=== PATIENT | male | born 1960 | race Caucasian/White ===

== ENCOUNTER 2024-04-26 08:33 | Outpatient (OUT) | payer MEDICARE, SELFPAY ==
--- NOTE | 2024-04-26 07:33 | V.VEINS.HP ---
Vital Signs 04/26/24 09:08 Height 6 ft Weight 133.81 kg BMI 40.0 BP 102/64 BP Location Left Brachial BP Position Sitting BP Cuff Size Adult BP Source Manual Cuff Respiration 20 Pulse 72 Pulse Source Monitor Pulse Oximetry (%) 90 L Oxygen Delivery Method Room Air Varicose Veins Patient is a 64 year old male in this day as a referral from his wound doctor, Dr. Harrington secondary to a wound to left foot which has been there for approximately one year. Patient c/o bilateral leg edema, discoloration, pain, and achiness. Patient's symptoms include bulging veins, discolored edematous legs. Patient has worn bilateral leg knee high compression stockings for >5 years. Patient has a history of partial left foot amputation. Patient's symptoms are worse in left leg as compared to right leg. Patient denies family history of varicose veins. Betito Ocasio MD personally performed the services described in this documentation, as scribed by Herson Reaves RN in my presence and it is both accurate and complete. Herson Ocasio RN, am scribing for, and in the presence of, Dr. Betito Cope and in the presence of the patient. . thigh: bilateral (left leg>right leg), knee: bilateral, calf: bilateral, ankle: bilateral and harrington: bilateral aching, burning, cramping and tender 10 12 years Worsened in recent months: Yes sitting analgesics (Ibuprofen and Tylenol), elevating extremities, compression stockings and exercise Reports muscle spasms of leg, erythema, bruising, fatigue, heaviness, restless legs, limb pain, edema and leg edema History of lower extremity trauma: Yes (left foot partial amputation 2011 secondary to diabetes) Superficial thrombophlebitis: No Family history of varicose veins: no Has patient had previous lower extremity venous surgery: No Patient has previously received the following treatment(s) for lower extremity varicose veins: Reports none Does patient have a history of : not applicable Has patient had lower extremity venous scan with relux testing: No Support hose used: Yes Problems walking or doing physical activity: Yes (weakness) How does it affect you: unable to ambulate well due to weakness Do you walk much: No Do you stand much: No Review of Systems ROS Narrative Left foot ulcer underside of lateral left foot [id number] in depth . IBetito MD personally performed the services described in this documentation, as scribed by Herson Reaves RN in my presence and it is both accurate and complete. I, Herson Reaves RN, am scribing for, and in the presence of, Dr. Betito Cope and in the presence of the patient. Status of ROS 10 or more systems reviewed and unremarkable except as noted in history and below Cardiovascular Reports: edema Integumentary/Breast Reports: itching, redness, skin pain, skin tenderness, skin swelling, non-healing lesion and changes in skin color Neurological Reports: numbness in extremities and weakness in extremities Hematologic/Lymphatic Reports: easy bruising and easy bleeding [facility] Medical History (Updated 04/26/24 @ 09:03 by Herson Reaves) Umbilical hernia ?K42.9 - Umbilical hernia without obstruction or gangrene (ICD-10) Urine retention ?R33.9 - Retention of urine, unspecified (ICD-10) Hypertension ?I10 - Essential (primary) hypertension (ICD-10) Obesity ?E66.9 - Obesity, unspecified (ICD-10) Bilateral leg edema ?R60.0 - Localized edema (ICD-10) Pain due to varicose veins of both lower extremities ?I83.813 - Varicose veins of bilateral lower extremities with pain (ICD-10) Diabetes 1.5, managed as type 2 ?E13.9 - Other specified diabetes mellitus without complications (ICD-10) Partial nontraumatic amputation of left foot ?Z89.432 - Acquired absence of left foot (ICD-10) Family History (Updated 04/26/24 @ 09:04 by Herson Reaves) Other Emphysema lung Social History (Updated 04/26/24 @ 09:04 by Herson Reaves) Within the past year, how often did you have a drink containing alcohol: never Score interpretation: A score less than 4 is consistent with normal alcohol consumption. Smoking status: Never smoker Non-prescribed substance use: denies use Meds Home Medications and Allergies Home Medications ?Medication ?Instructions ?Recorded ?Confirmed ?Type insulin aspart (niacinamide) subcut diabetes 04/26/24 History linagliptin 2.5 mg-metformin ER 1 tab PO DAILY 04/26/24 04/26/24 History 1,000 mg tablet,extended release 24 hr (Jentadueto XR) lisinopril 20 mg tablet 10 mg PO DAILY 04/26/24 04/26/24 History Allergies Allergy/AdvReac Type Severity Reaction Status Date / Time penicillamine Allergy Intermediate Rash Verified 04/26/24 09:07 Exam Narrative Exam Narrative: Betito Ocasio MD personally performed the services described in this documentation, as scribed by Herson Reaves RN in my presence and it is both accurate and complete. Herson Ocasio RN, am scribing for, and in the presence of, Dr. Betito Cope and in the presence of the patient. Constitutional Documenting provider has reviewed patient's vital signs: yes Common normals: oriented x3 Nutritional appearance: overweight Lymph Lymphatic: no lymphedema noted Cardio Peripheral pulses: posterior tibial pulses present and dorsalis pedis pulses present Extremity General: calf tenderness and edema Right lower extremity: lower leg Right lower leg: inspection and palpation Left lower extremity: lower leg Left lower leg: inspection and palpation Neuro Common normals: oriented x3 Results Additional Findings Additional findings: Bilateral leg reflux u/s reveals abnormally dilated and insufficient bilateral great and small saphenous veins along with perforating vein to left lower leg near ulcer. Additionaly, bilateral leg branch saphenous truncal tribuary varicosities. Assessment and Plan Assessment and Plan (1) Bilateral leg edema: Plan Patient to return for EVLTs of left GSV, followed by right GSV followed by left SSV followed by right SSV, and lastly EVLT of left perforating vein. Once EVLTs complete, move forward with microfoam chemical ablation bilateral leg branch saphenous varicosities. Betito Ocasio MD personally performed the services described in this documentation, as scribed by Herson Reaves RN in my presence and it is both accurate and complete. Herson Ocasio RN, am scribing for, and in the presence of, Dr. Betito Cope and in the presence of the patient.
--- NOTE | 2024-04-26 07:36 | W.VEIN ---
Discharge Plan Discharge Disposition: Home, Self-Care Outpatient Diagnostics: VC Endovenous Ablation 1VeinLT (Routine) Timeframe: 2 Weeks Facility: [facility] - Location: [facility] Ordered By: Betito Cope Plan of Treatment: EVLT of left GSV Patient Instructions: Endovenous Ablation (GEN) Print Language: Portuguese Discharge Date/Time: 04/26/24 11:43
--- NOTE | 2024-04-26 08:38 | VEIN_ITS ---
Patient Name: MONTRELL LORA MR#: [id number] : 1960 Exam Date: 04/26/2024 Ordering Doctor: DR RADHA WYATT M.D. This report includes an Addendum and supersedes previous reports for this exam. RADIOLOGY REPORT PROCEDURE: FACILITY [facility] - OFFICE VISIT INITIAL COMPARISON: None. PROGRESS NOTES: [age] year old male who presents with a 12 year history of lower extremity aching, burning, cramping, tenderness, swelling, bulging veins, and nonhealing ulceration. The patient's left leg symptoms are worse than the right. There has been a progression of symptoms over time. This increases with prolonged leg dependency. The patient describes an improvement with rest, elevation, compression stockings, and analgesics. The patient denies any signs and symptoms to suggest arterial ischemia. The patient describes a family history emphysema. The patient has drinking and smoking history of : None. Patient has a past medical history significant for diabetes, non traumatic amputation of portion of the left foot, hypertension, obesity. The patient denies a history of deep venous thrombus or pulmonary embolus. See separate history and physical for medication list. No prior treatment for varicose or spider veins. Current long-term use of compression stockings. After review of nurse notes, history and physical exam I discussed at length the pathophysiology of venous hypertension and possible treatments, therapies and strategies available. We discussed at length the importance of elevating the lower extremities above the level of the heart, increased physical activity and compression stocking use. Ultrasound venous reflux study performed today was discussed at length with the patient. The report demonstrates abnormally dilated incompetent great saphenous and small saphenous veins bilaterally with associated branch saphenous varicosities. Bilateral lower extremity dilated incompetent technical sales associate veins.. PHYSICAL EXAM: The right leg demonstrates a few scattered varicosities, a few scattered spider veins, no ulceration, moderate edema, marked skin discoloration. The left leg demonstrates a few scattered varicosities, a few scattered spider veins, active ulceration, moderate edema, marked skin discoloration. Both thighs, legs and feet were symmetrically warm to the touch. Good posterior tibial and dorsalis pedis pulses were present bilaterally. VEIN/VC Facility NEW Comprehensive IMPRESSION: 1. Bilateral lower extremity venous insufficiency 2. Bilateral lower extremity varicose veins 3. Bilateral lower extremity subcutaneous edema 4. No flow significant arterial disease 5. CEAP: C6, AP, AP, MT PLAN: 1. Continued use of compression stockings 2. Elevated legs and increased physical activity symptomatic relief 3. Endovenous laser ablation of left great saphenous, right great saphenous, left small saphenous, right small saphenous, and lower left leg technical sales associate veins. 4. Microfoam chemical ablation of bilateral lower extremity incompetent branch saphenous varicosities. Nurse notes, history and physical were reviewed and confirmed, see attached forms. The nurse was present throughout the physical exam and consultation Dictated by: Betito Cope M.D. on 04/26/2024 at 10:20 Approved by: Betito Cope M.D. on 04/26/2024 at 11:08 ADDENDUM: Endovenous laser ablation of lower left leg technical sales associate veins was inadvertently left off of the PLAN on the original report, but has now been added. Dictated by: Betito Cope M.D. on 04/26/2024 at 11:51 Approved by: Betito Cope M.D. on 04/26/2024 at 11:52
--- NOTE | 2024-04-26 08:39 | VEIN_ITS ---
Patient Name: MONTRELL LORA MR#: [id number] : 1960 Exam Date: 04/26/2024 Ordering Doctor: DR RADHA WYATT M.D. RADIOLOGY REPORT PROCEDURE: VC EXT VENOUS REFLUX EDWARD LMTD COMPARISON: None. INDICATIONS: I83.813 Bilateral painful varicose veins TECHNIQUE: Duplex imaging of the lower extremity to assess the deep and superficial venous system for the presence of deep or superficial venous incompetence and to document the location and severity of disease. The study includes evaluation of the great saphenous vein (GSV), anterior accessory saphenous vein (AASV) and small saphenous vein (SSV). Patient scanned in reverse Trendelenburg and standing. FINDINGS: RIGHT LOWER EXTREMITY: Saphenofemoral Junction Reflux: Yes 10.3mm 2.6 sec GSV: Diam (mm) Reflux/ Time (sec) Proximal Thigh 11.0 Yes 1.5 Mid Thigh 7.6 Yes 1.9 Distal Thigh 5.5 Yes 1.5 Prox Calf 6.0 Yes 1.6 Mid Calf 4.2 No Saphenopopliteal Junction Reflux: 6.8mm Yes 1.8 SSV: Proximal Calf 6.0 Yes 1.8 Mid Calf 5.4 Yes 0.8 AASV: Not present Proximal Thigh Mid Thigh Distal Thigh Thrombi: No acute or chronic patient visualized Compressibility: Normal Flow: Normal Preforator: Dist/med calf 5.5mm with 0.7s reflux. Mid/med calf 3.3mm with 0s reflux. Tech Note: Incompetent GSV and SSV. Patent varicose vein mid/med calf 4.3mm with 1.4s reflux. Patent varicose vein mid/med thigh 4.3mm with 1.8s reflux. Patent varicose vein medial knee 3.6mm with 0.8s reflux. LEFT LOWER EXTREMITY: Saphenofemoral Junction Reflux: Yes 10.1 mm 1.8 sec GSV: Diam (mm) Reflux/Time (sec) Proximal Thigh 9.9 Yes 1.8 Mid Thigh 13.2 Yes 1.8 Distal Thigh 9.1 Yes 2.2 Prox Calf 9.9 Yes 2.0 Mid Calf 5.8 Yes 1.3 Saphenopopliteal Junction Relux: 8.0 mm Yes 1.9 SSV: Proximal Calf 7.8 Yes 1.6 Mid Calf 5.7 Yes 1.2 AASV: Not present Proximal Thigh Mid Thigh Distal Thigh Thrombi: No acute or chronic thrombus visualized Compressibility: Normal Flow: Normal Solution Strategist: Dist/med calf 5.8mm with 0.8s reflux. Mid/med calf 5.5mm with 1.8s reflux. Tech Note: Incompetent GSV, SSV, and perforators. GSV is extrafascial from distal thigh to mid calf. Patent varicose vein mid/med calf 6.7mm with 2.3s reflux. Patent varicose vein prox/med calf 13.0mm with 1.3s reflux. Patent varicose vein prox/med calf 11.9mm with 2.0s reflux. CONCLUSION: 1. Incompetent and abnormally dilated great saphenous and small saphenous veins bilaterally with associated incompetent branch saphenous varicosities. 2. Bilateral lower extremity dilated and incompetent promotions associate veins. Dictated by: Betito Cope M.D. on 04/26/2024 at 10:15 Approved by: Betito Cope M.D. on 04/26/2024 at 10:20
[2024-04-26 09:08] VITALS: BP 102/64; PULSE 72; O2SAT 90; BMI 40.0
== END 2024-04-26 11:43 | disposition home or self-care (01) ==
PROVIDERS: PCP Radiology Diagnostic Radiology; Visit Provider Radiology Diagnostic Radiology
DX: I83.813 Varicose veins of bilateral lower extremities with pain (principal)
CPT/HCPCS: 93970; G0463

== ENCOUNTER 2024-05-14 14:16 | Outpatient (OUT) | payer MEDICARE, SELFPAY ==
--- NOTE | 2024-05-14 14:16 | VEIN_ITS ---
[address] [address] Patient Name: MONTRELL LORA MRN: [id number] date: 1960 Sex: M Assigned Patient Location: Current Patient Location: Accession/Order Number: [id number] Exam Date: 05/14/2024 14:25 Report Date: 05/14/2024 16:24 At the request of: AIXA PARHAM Procedure: VC Endovenous Ablation 1VeinLT EXAMINATION: VC Endovenous Ablation 1VeinLT HISTORY: I83.813 - Varicose veins of bilateral lower extremities w... The risks and benefits of the procedure had been previously discussed, and were rediscussed at length. Informed written consent was obtained. Nan Cunha RN and Tatyana Woods RDMS, RVT assisted. Time out procedure was performed. The left lower extremity was prepared and draped in the usual sterile fashion to allow knee flexion in the sterile field. Duplex ultrasound probe was draped in a sterile cover, sterile transmission gel was used. Venous mapping was performed with the areas of dilation and large tributaries marked. The total length was 73 cm from the entry 3 cm above the ankle to 3 cm below the Saphenofemoral junction. The diameter of the left great saphenous vein ranged from 13.2 mm. A 30 gauge needle and 1% buffered lidocaine was used to anesthetize the entry site. A 4 mm incision was made with a scalpel and the saphenous vein was entered percutaneously under direct ultrasound guidance with a micropuncture set, a single stick was successful in gaining access. A micro-guide wire was inserted and the needle removed. A micro-set including a dilator was inserted over the microwire and the needle and dilator were removed. A guide wire was inserted through the micro-set and guided through the saphenous vein to the saphenofemoral junction. The dilator was removed and an introducer sheath was inserted over the wire until the end of the sheath entered the saphenofemoral junction. The dilator and wire were removed and the 600 micron fiber was introduced and placed and positioned so that it extended beyond the sheath and was 3 cm distal to the saphenofemoral or saphenopopliteal junction. Final position of the fiber was determined by ultrasound guidance and duplex imaging. Tumescent anesthetic was delivered by ultrasound guidance. 350 cc of fluid was delivered along the entire course of the saphenous vein. The solution consisted of 1000 cc of normal saline with 40 mL of 1% lidocaine and 20 mL of sodium bicarbonate. A final positioning check was made. The energy source was turned on by means of the foot pedal and the fiber and sheath were withdrawn. The total number of Joules delivered was 4499. The laser was active for 562 seconds under continuous pulse, average laser use of 8 J. Laser start time: 3:15 PM Laser stop time: 3:27 PM Date: 05/14/2024. A duplex ultrasound revealed compressibility and flow at the saphenofemoral junction immediately after the procedure. Hemostasis at the access site was achieved. The skin incision of the saphenous vein was closed with a 4 x 4. A compression stocking was applied. Postop instructions were given. A follow up appointment was recommended and scheduled. The patient tolerated the procedure well. Electronically authenticated by: AIXA PARHAM Date: 05/14/2024 16:24
[2024-05-14] MEDS: 0.9 % SODIUM CHLORIDE 500 ML, LIDOCAINE HCL 20 ML, SODIUM BICARBONATE 10 MEQ INJ (14:23)
[2024-05-14] MEDS: LIDOCAINE HCL 1% 100 MG/10 ML MDV INJ (14:23)
[2024-05-14 14:50] VITALS: BP 138/70; PULSE 72; O2SAT 94
--- NOTE | 2024-05-14 14:58 | VEINCLINIC_ITS ---
Vital Signs 05/14/24 14:50 05/14/24 15:17 Height 5 ft 7 in Weight 117.934 kg BP 138/70 BP Location Left Brachial BP Position Sitting BP Cuff Size Adult BP Source Manual Cuff Respiration 20 Pulse 72 Pulse Source Monitor Pulse Oximetry (%) 94 L Oxygen Delivery Method Room Air Comment The patient's blood pressure is elevated. Varicose Veins Patient in this day for EVLT of left GSV Betito Ocasio MD personally performed the services described in this documentation, as scribed by Herson Reaves RN in my presence and it is both accurate and complete. IHerson RN, am scribing for, and in the presence of, Dr. Betito Cope and in the presence of the patient. . thigh: bilateral (left leg>right leg), knee: bilateral, calf: bilateral, ankle: bilateral and harrington: bilateral aching, burning, cramping and tender 10 12 years Worsened in recent months: Yes sitting analgesics (Ibuprofen and Tylenol), elevating extremities, compression stockings and exercise Reports muscle spasms of leg, erythema, bruising, fatigue, heaviness, restless legs, limb pain, edema and leg edema History of lower extremity trauma: Yes (left foot partial amputation 2011 secondary to diabetes) Superficial thrombophlebitis: No Family history of varicose veins: no Has patient had previous lower extremity venous surgery: No Patient has previously received the following treatment(s) for lower extremity varicose veins: Reports none Does patient have a history of : not applicable Has patient had lower extremity venous scan with relux testing: No Support hose used: Yes Problems walking or doing physical activity: Yes (weakness) How does it affect you: unable to ambulate well due to weakness Do you walk much: No Do you stand much: No Review of Systems ROS Narrative Left foot ulcer underside of lateral left foot [id number] in depth . Betito Ocasio MD personally performed the services described in this documentation, as scribed by Herson Reaves RN in my presence and it is both accurate and complete. Herson Ocasio RN, am scribing for, and in the presence of, Dr. Betito Cope and in the presence of the patient. Status of ROS 10 or more systems reviewed and unremark able except as noted in history and below Cardiovascular Reports: edema Integumentary/Breast Reports: itching, redness, skin pain, skin tenderness, skin swelling, non-healing lesion and changes in skin color Neurological Reports: numbness in extremities and weakness in extremities Hematologic/Lymphatic Reports: easy bruising and easy bleeding PFSH PFSH Medical History (Updated 04/26/24 @ 09:03 by Herson Reaves) Umbilical hernia ?K42.9 - Umbilical hernia without obstruction or gangrene (ICD-10) Urine retention ?R33.9 - Retention of urine, unspecified (ICD-10) Hypertension ?I10 - Essential (primary) hypertension (ICD-10) Obesity ?E66.9 - Obesity, unspecified (ICD-10) Bilateral leg edema ?R60.0 - Localized edema (ICD-10) Pain due to varicose veins of both lower extremities ?I83.813 - Varicose veins of bilateral lower extremities with pain (ICD-10) Diabetes 1.5, managed as type 2 ?E13.9 - Other specified diabetes mellitus without complications (ICD-10) Partial nontraumatic amputation of left foot ?Z89.432 - Acquired absence of left foot (ICD-10) Surgical History (Updated 05/14/24 @ 15:39 by Herson Reaves) Status post laser ablation of incompetent vein ?Z98.890 - Other specified postprocedural states (ICD-10) Family History (Updated 04/26/24 @ 09:04 by Herson Reaves) Other Emphysema lung Social History (Updated 04/26/24 @ 09:04 by Herson Reaves) Within the past year, how often did you have a drink containing alcohol: never Score interpretation: A score less than 4 is consistent with normal alcohol consumption. Smoking status: Never smoker Non-prescribed substance use: denies use Meds Home Medications and Allergies Home Medications ?Medication ?Instructions ?Recorded ?Confirmed ?Type insulin aspart (niacinamide) subcut diabetes 04/26/24 History linagliptin 2.5 mg-metformin ER 1 tab PO DAILY 04/26/24 04/26/24 History 1,000 mg tablet,extended release 24 hr (Jentadueto XR) lisinopril 20 mg tablet 10 mg PO DAILY 04/26/24 04/26/24 History gabapentin 600 mg tablet 600 mg PO TID 05/14/24 05/14/24 History losartan 100 mg tablet 100 mg PO DAILY 05/14/24 05/14/24 History Allergies Allergy/AdvReac Type Severity Reaction Status Date / Time penicillamine Allergy Intermediate Rash Verified 04/26/24 09:07 Exam Narrative Exam Narrative: Betito Ocasio MD personally performed the services described in this documentation, as scribed by Herson Reaves RN in my presence and it is both accurate and complete. IHerson RN, am scribing for, and in the presence of, Dr. Betito Cope and in the presence of the patient. Constitutional Documenting provider has reviewed patient's vital signs: yes Common normals: oriented x3 Nutritional appearance: overweight Lymph Lymphatic: no lymphedema noted Cardio Peripheral pulses: posterior tibial pulses present and dorsalis pedis pulses present Extremity General: calf tenderness and edema Right lower extremity: lower leg Right lower leg: inspection and palpation Left lower extremity: lower leg Left lower leg: inspection and palpation Neuro Common normals: oriented x3 Assessment and Plan Assessment and Plan (1) Pain due to varicose veins of both lower extremities: Plan f/u examination by physician along with left leg limited u/s Betito Ocasio MD personally performed the services described in this documentation, as scribed by Herson Reaves RN in my presence and it is both accurate and complete. IHerson RN, am scribing for, and in the presence of, Dr. Betito Cope and in the presence of the patient. Procedures Procedure Instructions Procedures Plan of care: Risks and benefits of the procedure were discussed at length and informed written consent was obtained.? Time-out completed for verification of correct patient, procedure and site.? Staff present during time-out: Herson Reaves RN,? Betito Cope MD, Tatyana Taehudson ALVAREZMS,RVT, Nan Cunha RN Time Out Time___1455____ Patient prepped and procedure performed in usual sterile fashion. Risk of injury related to use of Diode laser and/or laser devices? __CR___ ? Serial number of laser used :? [id number] Control panel self test performed, electrical cords in good condition, floor is dry, basin of water available, fire extinguisher in close proximity_CR__ Polycarbonate goggles available and Laser warning signs outside of doors___CR__ Eye protection provided to patient and staff in room_CR___ Use of laser retardant drapes and dull blackened instruments as directed__CR___ Use of nonflammable prep solutions and use of saline soaked sponges to protect tissues as indicated _CR___ Length __73 cm Laser operated by ___Dr. Cope Physician verbal confirmation laser locked in place__CR__ Laser start time (date and time) _05/14/2024@_1515 Laser stop time(date and time) __05/14/2024@__1527 Valente _8.0___ Average laser use __4499 Joules Average laser use__562 seconds Pulse continuous ___CR_? Pulse intermittent ___ Amount of Tumescent used __350cc____ Evaluated patient for signs and symptoms of electrical injury __CR___ ? Skin clear at insertion site __CR___ Patient tolerated procedure well.? Left leg Coban dressing applied to access si te.? Applied Left thigh high leg compression stocking. Will return on 05/21/2024 for Left leg limited venous ultrasound and exam. IBetito MD personally performed the services described in this documentation, as scribed by Herson Reaves RN in my presence and it is both accurate and complete. I, Herson Reaves RN, am scribing for, and in the presence of, Dr. Betito Cope and in the presence of the patient.
--- NOTE | 2024-05-14 15:02 | W.VEIN ---
Discharge Plan Discharge Disposition: Home, Self-Care Outpatient Diagnostics: VC Facility EST LMTD (Routine) Timeframe: 2 Weeks Facility: [facility] - Location: Vein Center Ordered By: Betito Cope VC EXT Venous LT Limited (Routine) Timeframe: 2 Weeks Facility: [facility] - Location: Vein Center Ordered By: Betito Cope Follow Up Appointments: 05/21/2024 Plan of Treatment: f/u evaluation with physician along with left leg limited u/s Patient Instructions: Endovenous Ablation (DC) Print Language: [place] Discharge Date/Time: 05/14/24 15:20
== END 2024-05-14 15:20 | disposition home or self-care (01) ==
PROVIDERS: PCP Radiology Diagnostic Radiology; Visit Provider Radiology Diagnostic Radiology
DX: I83.813 Varicose veins of bilateral lower extremities with pain (principal)
CPT/HCPCS: 36478

== ENCOUNTER 2024-05-23 11:14 | Outpatient (OUT) | payer MEDICARE, SELFPAY ==
--- NOTE | 2024-05-23 11:21 | VEINCLINIC_ITS ---
Vital Signs 05/23/24 11:22 Height 6 ft Weight 134 kg BMI 40.1 Varicose Veins Patient in today for follow up ultrasound of left lower extremity following EVLT of left GSV completed on 05/14/24. Corey Ocasio MD personally performed the services described in this documentation, as scribed by Ema Gutierrez RDMS in my presence and it is both accurate and complete. Ema Ocasio RDMS, am scribing for, and in the presence of, Dr. Corey Vuong and in the presence of the patient. thigh: bilateral (left leg>right leg), knee: bilateral, calf: bilateral, ankle: bilateral and harrington: bilateral aching, burning, cramping and tender 10 12 years Worsened in recent months: Yes sitting analgesics (Ibuprofen and Tylenol), elevating extremities, compression stockings and exercise Reports muscle spasms of leg, erythema, bruising, fatigue, heaviness, restless legs, limb pain, edema and leg edema History of lower extremity trauma: Yes (left foot partial amputation 2011 secondary to diabetes) Superficial thrombophlebitis: No Family history of varicose veins: no Has patient had previous lower extremity venous surgery: No Patient has previously received the following treatment(s) for lower extremity varicose veins: Reports none Does patient have a history of : not applicable Has patient had lower extremity venous scan with relux testing: No Support hose used: Yes Problems walking or doing physical activity: Yes (weakness) How does it affect you: unable to ambulate well due to weakness Do you walk much: No Do you stand much: No Review of Systems ROS Narrative Corey Ocasio MD personally performed the services described in this documentation, as scribed by Ema Gutierrez RDMS in my presence and it is both accurate and complete. Ema Ocasio RDMS, am scribing for, and in the presence of, Dr. Corey Vuong and in the presence of the patient. Status of ROS 10 or more systems reviewed and unremark able except as noted in history and below Cardiovascular Reports: edema Integumentary/Breast Reports: itching, redness, skin pain, skin tenderness, skin swelling, non-healing lesion and changes in skin color Neurological Reports: numbness in extremities and weakness in extremities Hematologic/Lymphatic Reports: easy bruising and easy bleeding PFSH [facility] Medical History (Updated 05/21/24 @ 10:47 by Ema Gutierrez) Phlebitis and thrombophlebitis of superficial vessels of left lower extremity ?I80.02 - Phlebitis and thrombophlebitis of superficial vessels of left lower extremity (ICD-10) Umbilical hernia ?K42.9 - Umbilical hernia without obstruction or gangrene (ICD-10) Urine retention ?R33.9 - Retention of urine, unspecified (ICD-10) Hypertension ?I10 - Essential (primary) hypertension (ICD-10) Obesity ?E66.9 - Obesity, unspecified (ICD-10) Bilateral leg edema ?R60.0 - Localized edema (ICD-10) Pain due to varicose veins of both lower extremities ?I83.813 - Varicose veins of bilateral lower extremities with pain (ICD-10) Diabetes 1.5, managed as type 2 ?E13.9 - Other specified diabetes mellitus without complications (ICD-10) Partial nontraumatic amputation of left foot ?Z89.432 - Acquired absence of left foot (ICD-10) Surgical History (Updated 05/14/24 @ 15:39 by Herson Reaves) Status post laser ablation of incompetent vein ?Z98.890 - Other specified postprocedural states (ICD-10) Family History (Updated 04/26/24 @ 09:04 by Herson Reaves) Other Emphysema lung Social History (Updated 04/26/24 @ 09:04 by Herson Reaves) Within the past year, how often did you have a drink containing alcohol: never Score interpretation: A score less than 4 is consistent with normal alcohol consumption. Smoking status: Never smoker Non-prescribed substance use: denies use Meds Home Medications and Allergies Home Medications ?Medication ?Instructions ?Recorded ?Confirmed ?Type insulin aspart (niacinamide) subcut diabetes 04/26/24 History linagliptin 2.5 mg-metformin ER 1 tab PO DAILY 04/26/24 04/26/24 History 1,000 mg tablet,extended release 24 hr (Jentadueto XR) lisinopril 20 mg tablet 10 mg PO DAILY 04/26/24 04/26/24 History gabapentin 600 mg tablet 600 mg PO TID 05/14/24 05/14/24 History losartan 100 mg tablet 100 mg PO DAILY 05/14/24 05/14/24 History Allergies Allergy/AdvReac Type Severity Reaction Status Date / Time penicillamine Allergy Intermediate Rash Verified 04/26/24 09:07 Exam Narrative Exam Narrative: Corey Ocasio MD personally performed the services described in this documentation, as scribed by Ema Gutierrez RDMS in my presence and it is both accurate and complete. Ema Ocasio RDMS am scribing for, and in the presence of, Dr. Corey Vuong and in the presence of the patient. Constitutional Documenting provider has reviewed patient's vital signs: yes Common normals: oriented x3 Nutritional appearance: overweight Lymph Lymphatic: no lymphedema noted Cardio Peripheral pulses: posterior tibial pulses present and dorsalis pedis pulses present Extremity General: calf tenderness and edema Right lower extremity: lower leg Right lower leg: inspection and palpation Left lower extremity: lower leg Left lower leg: inspection and palpation Neuro Common normals: oriented x3 Results Imaging Venous US: Radiologist's impression: Heat induced thrombus in left GSV 2.4 cm from SFJ and extends to distal lower leg. Corey Ocasio MD personally performed the services described in this documentation, as scribed by Ema Gutierrez RDMS in my presence and it is both accurate and complete. Ema Ocasio RDMS am scribing for, and in the presence of, Dr. Corey Vuong and in the presence of the patient. Assessment and Plan Assessment and Plan (1) Phlebitis and thrombophlebitis of superficial vessels of left lower ext remity: Plan Plan is for patient to return for EVLT of right GSV on 05/30/24. Corey Ocasio MD personally performed the services described in this documentation, as scribed by Ema Gutierrez RDMS in my presence and it is both accurate and complete. Ema Ocasio RDMS am scribing for, and in the presence of, Dr. Corey Vuong and in the presence of the patient.
[2024-05-23 11:22] VITALS: BMI 40.1
--- NOTE | 2024-05-23 11:35 | VEIN_ITS ---
Patient Name: MONTRELL LORA MR#: [id number] : 1960 Exam Date: 05/23/2024 Ordering Doctor: DR AIXA PARHAM M.D. RADIOLOGY REPORT PROCEDURE: [facility] FACILITY EST LMTD VEIN CENTER - OFFICE VISIT FOLLOW UP COMPARISON: None. PROGRESS NOTES: The patient reports moderate pain of the left thigh following intravenous laser ablation of the left great saphenous vein. The patient has worn his compression stocking. The patient has tried to exercise within his ability given his left forefoot amputation and wound. Patient has not taken any pain medication. Physical exam demonstrates multiple thrombosed varicose veins in the medial left thigh in the region the patient's pain with some mild warmth but no erythema , demonstrated to be thrombosed great saphenous vein and associated saphenous tributaries inconsistent with thrombophlebitis . No active ulceration Review of the ultrasound performed the same day demonstrates occlusive thrombus extending throughout the treated left great saphenous vein with heat induced thrombus 2.4 cm from the saphenofemoral junction. No deep vein thrombus. Multiple thrombosed branch saphenous tributaries. The patient expressed a desire to proceed with treatment of incompetent right great saphenous vein. VEIN/ Facility EST LMTD IMPRESSION: 1. Successful ablation of the left great saphenous vein 2. Persistent incompetent right great saphenous vein. PLAN: Intravenous laser ablation right great saphenous vein Nurse notes, history and physical were reviewed and confirmed, see attached forms. The nurse was present throughout the physical exam and consultation Dictated by: Corey Vuong MD on 05/23/2024 at 12:05 Approved by: Corey Vuong MD on 05/23/2024 at 12:09
--- NOTE | 2024-05-23 11:35 | VEIN_ITS ---
Patient Name: MONTRELL LORA MR#: [id number] : 1960 Exam Date: 05/23/2024 Ordering Doctor: DR AIXA PARHAM M.D. RADIOLOGY REPORT PROCEDURE: VC EXT VENOUS LT LIMITED COMPARISON: None. INDICATIONS: I80.02 - Phlebitis and thrombophlebitis of superficial veins left leg TECHNIQUE: Lower extremity arteaga scale and Duplex Doppler evaluation of the deep venous system from the inguinal ligament through the calf veins. FINDINGS: REGION: Left lower extremity. THROMBI: Negative for DVT. Heat induced thrombus in left GSV 2.4 cm from SFJ and extends to distal lower leg/ankle. Thrombus visualized in multiple branch varicosities. COMPRESSIBILITY: Non-compressible segments corresponding to thrombus FLOW: Areas of no flow corresponding to thrombus CONCLUSION: Post ablation occlusion of the left great saphenous vein with heat induced thrombus 2.4 cm from the saphenofemoral junction Dictated by: Corey Vuong MD on 05/23/2024 at 11:56 Approved by: Corey Vuong MD on 05/23/2024 at 11:56
--- NOTE | 2024-05-24 08:06 | W.VEIN ---
Discharge Plan Discharge Disposition: Home, Self-Care Outpatient Diagnostics: VC Endovenous Ablation 1VeinRT (Routine) Timeframe: 2 Weeks Facility: [facility] - Location: Vein Center Ordered By: Corey Vuong Follow Up Appointments: 05/30/24 Plan of Treatment: EVLT of right GSV EVLT Tumescent Anesthesia: 500 mL 0.9% NS with 20 mL 1% Lidocaine and 10 mL 8.4% NAHCO3 Buffered Local Anesthesia: 10 mL of 1% Lidocaine Buffered Print Language: Vietnamese Discharge Date/Time: 05/23/24 11:15
== END 2024-05-23 11:15 | disposition home or self-care (01) ==
LOC: VC 11:21
PROVIDERS: PCP Radiology Diagnostic Radiology; Visit Provider Radiology Diagnostic Radiology
DX: I80.02 Phlebitis and thrombophlebitis of superficial vessels of left lower extremity (principal)
CPT/HCPCS: 93971; G0463

== ENCOUNTER 2024-05-30 12:53 | Outpatient (OUT) | payer MEDICARE, SELFPAY ==
--- NOTE | 2024-05-30 11:23 | P.DS_ITS ---
Discharge Plan Discharge Disposition: Home, Self-Care Outpatient Diagnostics: VC Facility EST LMTD (Routine) Timeframe: 2 Weeks Facility: [facility] - Location: Vein Center Ordered By: Betito Cope VC EXT Venous LT Limited (Routine) Timeframe: 2 Weeks Facility: [facility] - Location: Vein Center Ordered By: Betito Cope Follow Up Appointments: 06/05/24 Plan of Treatment: U/S f/u left SSV evlt Patient Instructions: Endovenous Ablation (DC) Print Language: Bengali Discharge Date/Time: 05/30/24 13:59
--- NOTE | 2024-05-30 11:57 | VEINCLINIC_ITS ---
Vital Signs 05/30/24 13:29 BP 140/64 BP Location Left Brachial BP Position Sitting BP Cuff Size Adult BP Source Manual Cuff Respiration 18 Pulse 82 Pulse Source Monitor Pulse Oximetry (%) 93 L Oxygen Delivery Method Room Air Comment The patient's blood pressure is elevated. Varicose Veins Patient in today for EVLT of left SSV. Betito Ocasio MD personally performed the services described in this documentation, as scribed by Nan Cunha RN in my presence and it is both accurate and complete. Nan Ocasio RN, am scribing for, and in the presence of, Dr. Betito Cope and in the presence of the patient. thigh: bilateral (left leg>right leg), knee: bilateral, calf: bilateral, ankle: bilateral and harrington: bilateral aching, burning, cramping and tender 10 12 years Worsened in recent months: Yes sitting analgesics (Ibuprofen and Tylenol), elevating extremities, compression stockings and exercise Reports muscle spasms of leg, erythema, bruising, fatigue, heaviness, restless legs, limb pain, edema and leg edema History of lower extremity trauma: Yes (left foot partial amputation 2011 secondary to diabetes) Superficial thrombophlebitis: No Family history of varicose veins: no Has patient had previous lower extremity venous surgery: No Patient has previously received the following treatment(s) for lower extremity varicose veins: Reports none Does patient have a history of : not applicable Has patient had lower extremity venous scan with relux testing: No Support hose used: Yes Problems walking or doing physical activity: Yes (weakness) How does it affect you: unable to ambulate well due to weakness Do you walk much: No Do you stand much: No Review of Systems ROS Narrative Betito Ocasio MD personally performed the services described in this documentation, as scribed by Nan Cunha RN in my presence and it is both accurate and complete. Nan Ocasio RN, am scribing for, and in the presence of, Dr. Betito Cope and in the presence of the patient. Status of ROS 10 or more systems reviewed and unremark able except as noted in history and below Cardiovascular Reports: edema Integumentary/Breast Reports: itching, redness, skin pain, skin tenderness, skin swelling, non-healing lesion and changes in skin color Neurological Reports: numbness in extremities and weakness in extremities Hematologic/Lymphatic Reports: easy bruising and easy bleeding PFSH PFSH Medical History (Updated 05/21/24 @ 10:47 by Ema Gutierrez) Phlebitis and thrombophlebitis of superficial vessels of left lower extremity ?I80.02 - Phlebitis and thrombophlebitis of superficial vessels of left lower extremity (ICD-10) Umbilical hernia ?K42.9 - Umbilical hernia without obstruction or gangrene (ICD-10) Urine retention ?R33.9 - Retention of urine, unspecified (ICD-10) Hypertension ?I10 - Essential (primary) hypertension (ICD-10) Obesity ?E66.9 - Obesity, unspecified (ICD-10) Bilateral leg edema ?R60.0 - Localized edema (ICD-10) Pain due to varicose veins of both lower extremities ?I83.813 - Varicose veins of bilateral lower extremities with pain (ICD-10) Diabetes 1.5, managed as type 2 ?E13.9 - Other specified diabetes mellitus without complications (ICD-10) Partial nontraumatic amputation of left foot ?Z89.432 - Acquired absence of left foot (ICD-10) Surgical History (Updated 05/14/24 @ 15:39 by Herson Reaves) Status post laser ablation of incompetent vein ?Z98.890 - Other specified postprocedural states (ICD-10) Family History (Updated 04/26/24 @ 09:04 by Herson Reaves) Other Emphysema lung Social History (Updated 04/26/24 @ 09:04 by Herson Reaves) Within the past year, how often did you have a drink containing alcohol: never Score interpretation: A score less than 4 is consistent with normal alcohol consumption. Smoking status: Never smoker Non-prescribed substance use: denies use Meds Home Medications and Allergies Home Medications ?Medication ?Instructions ?Recorded ?Confirmed ?Type insulin aspart (niacinamide) subcut diabetes 04/26/24 History linagliptin 2.5 mg-metformin ER 1 tab PO DAILY 04/26/24 04/26/24 History 1,000 mg tablet,extended release 24 hr (Jentadueto XR) lisinopril 20 mg tablet 10 mg PO DAILY 04/26/24 04/26/24 History gabapentin 600 mg tablet 600 mg PO TID 05/14/24 05/14/24 History losartan 100 mg tablet 100 mg PO DAILY 05/14/24 05/14/24 History Allergies Allergy/AdvReac Type Severity Reaction Status Date / Time penicillamine Allergy Intermediate Rash Verified 04/26/24 09:07 Exam Narrative Exam Narrative: IBetito MD personally performed the services described in this documentation, as scribed by Nan Cunha RN in my presence and it is both accurate and complete. I, Nan Cunha RN, am scribing for, and in the presence of, Dr. Betito Cope and in the presence of the patient. Constitutional Documenting provider has reviewed patient's vital signs: yes Common normals: oriented x3 Nutritional appearance: overweight Lymph Lymphatic: no lymphedema noted Cardio Peripheral pulses: posterior tibial pulses present and dorsalis pedis pulses present Extremity General: calf tenderness and edema Right lower extremity: lower leg Right lower leg: inspection and palpation Left lower extremity: lower leg Left lower leg: inspection and palpation Neuro Common normals: oriented x3 Assessment and Plan Assessment and Plan (1) Pain due to varicose veins of both lower extremities: Plan Plan of care: Risks and benefits of the procedure were discussed at length and informed written consent was obtained.? Time-out completed for verification of correct patient, procedure and site.? Staff present during time-out: Nan Cunha RN,? Betito Cope MD, Ema Gutierrez RDMS. Time Out Time____1322___ Patient prepped and procedure performed in usual sterile fashion. Risk of injury related to use of Diode laser and/or laser devices? __AG___ ? Serial number of laser used :? [id number] Control panel self test performed, electrical cords in good condition, floor is dry, basin of water available, fire extinguisher in close proximity_AG__ Polycarbonate goggles available and Laser warning signs outside of doors___AG___ Eye protection provided to patient and staff in room_AG___ Use of laser retardant drapes and dull blackened instruments as directed__AG___ Use of nonflammable prep solutions and use of saline soaked sponges to protect tissues as indicated _AG___ Length ___34 cm Laser operated by ___Dr. Cope Physician verbal confirmation laser locked in place__AG__ Laser start time (date and time) _05/30/24@1336 Laser stop time(date and time) _05/30/24@1343 Valente _8.0___ Average laser use ____1725___Joules Average laser use____216____seconds Pulse continuous ___AG_? Pulse intermittent ___ Amount of Tumescent used __250____ Evaluated patient for signs and symptoms of electrical injury __AG___ ? Skin clear at insertion site __AG___ Patient tolerated procedure well.? Left leg Coban dressing applied to access site.? Applied Left thigh high leg compression stocking. Will return on 06/05/24 for Left leg limited venous ultrasound and exam. I,Betito Cope MD personally performed the services described in this documentation, as scribed by Nan Cunha RN in my presence and it is both accurate and complete. I, Nan Cunha RN, am scribing for, and in the presence of, Dr. Betito Cope and in the presence of the patient.
--- NOTE | 2024-05-30 13:19 | VEIN_ITS ---
[address] [address] Patient Name: MONTRELL LORA MRN: [id number] date: 1960 Sex: M Assigned Patient Location: Current Patient Location: Accession/Order Number: [id number] Exam Date: 05/30/2024 13:10 Report Date: 05/30/2024 16:08 At the request of: AIXA PARHAM Procedure: VC Endovenous Ablation 1VeinLT EXAMINATION: VC Endovenous Ablation 1VeinLT HISTORY: I83.813 - Varicose veins of bilateral lower extremities w... The risks and benefits of the procedure had been previously discussed, and were rediscussed at length. Informed written consent was obtained. Nan Cunha RN and Ema Ortiz RDMS assisted. Time out procedure was performed. The left lower extremity was prepared and draped in the usual sterile fashion to allow knee flexion in the sterile field. Duplex ultrasound probe was draped in a sterile cover, sterile transmission gel was used. Venous mapping was performed with the areas of dilation and large tributaries marked. The total length was 34 cm from the entry distal calf to 1 cm below its insertion into deeper tissues (thigh extension). The diameter of the left small saphenous vein ranged from 7.8 mm. A 30 gauge needle and 1% buffered lidocaine was used to anesthetize the entry site. A 4 mm incision was made with a scalpel and the saphenous vein was entered percutaneously under direct ultrasound guidance with a micropuncture set, a single stick was successful in gaining access. A micro-guide wire was inserted and the needle removed. A micro-set including a dilator was inserted over the microwire and the needle and dilator were removed. A guide wire was inserted through the micro-set and guided through the saphenous vein to the saphenofemoral junction. The dilator was removed and an introducer sheath was inserted over the wire until the end of the sheath entered the saphenofemoral junction. The dilator and wire were removed and the 600 micron fiber was introduced and placed and positioned so that it extended beyond the sheath and was 3 cm distal to the saphenofemoral or saphenopopliteal junction. Final position of the fiber was determined by ultrasound guidance and duplex imaging. Tumescent anesthetic was delivered by ultrasound guidance. 1250 cc of fluid was delivered along the entire course of the saphenous vein. The solution consisted of 1000 cc of normal saline with 40 mL of 1% lidocaine and 20 mL of sodium bicarbonate. A final positioning check was made. The energy source was turned on by means of the foot pedal and the fiber and sheath were withdrawn. The total number of Joules delivered was 1725. The laser was active for 216 seconds under continuous pulse, average laser use of 8 J. Laser start time: 1:36 PM Laser stop time: 1:43 PM Date: 05/30/2024. A duplex ultrasound revealed compressibility and flow at the saphenofemoral junction immediately after the procedure. Hemostasis at the access site was achieved. The skin incision of the saphenous vein was closed with a 4 x 4. A compression stocking was applied. Postop instructions were given. A follow up appointment was recommended and scheduled. The patient tolerated the procedure well. Electronically authenticated by: AIXA PARHAM Date: 05/30/2024 16:08
[2024-05-30] MEDS: LIDOCAINE HCL 1% 100 MG/10 ML MDV INJ (13:27)
[2024-05-30] MEDS: 0.9 % SODIUM CHLORIDE 500 ML, LIDOCAINE HCL 20 ML, SODIUM BICARBONATE 10 MEQ INJ (13:28)
[2024-05-30 13:29] VITALS: BP 140/64; PULSE 82; O2SAT 93
== END 2024-05-30 13:59 | disposition home or self-care (01) ==
LOC: VC 12:54
PROVIDERS: PCP Radiology Diagnostic Radiology; Visit Provider Radiology Diagnostic Radiology
DX: I83.813 Varicose veins of bilateral lower extremities with pain (principal)
CPT/HCPCS: 36478

== ENCOUNTER 2024-06-20 10:15 | Outpatient (OUT) | payer MEDICARE, SELFPAY ==
--- NOTE | 2024-06-20 10:16 | VEIN_ITS ---
Patient Name: MONTRELL LORA MR#: [id number] : 1960 Exam Date: 06/20/2024 Ordering Doctor: DR AIXA PARHAM M.D. RADIOLOGY REPORT PROCEDURE: VC EXT VENOUS LT LIMITED COMPARISON: VC EXT VENOUS LT LIMITED, 05/23/2024. INDICATIONS: I83.813 - Varicose veins of bilateral lower extremities w... TECHNIQUE: Lower extremity arteaga scale and Duplex Doppler evaluation of the deep venous system from the inguinal ligament through the calf veins. FINDINGS: REGION: Left lower extremity. THROMBI: Negative for DVT. Heat induced thrombus visualized arising at distal thigh and extending through distal calf. COMPRESSIBILITY: Non-compressible segments corresponding to thrombus FLOW: Areas of no flow corresponding to thrombus CONCLUSION: Post ablation occlusion of treated varicose veins with no deep vein thrombus Dictated by: Corey Vuong MD on 06/20/2024 at 10:49 Approved by: Corey Vuong MD on 06/20/2024 at 10:50
--- NOTE | 2024-06-20 10:16 | VEIN_ITS ---
Patient Name: MONTRELL LORA MR#: [id number] : 1960 Exam Date: 06/20/2024 Ordering Doctor: DR AIXA PARHAM M.D. RADIOLOGY REPORT PROCEDURE: [facility] EST LMTD VEIN CENTER - OFFICE VISIT FOLLOW UP [facility] PROGRESS NOTES: The patient reports no significant problems following intravenous laser ablation of the left small saphenous vein. The patient has worn his compression stocking. Patient did not require oral analgesics. The patient does complain of persistent ulceration along the plantar left foot. The patient was discharged from the wound Center as they did not feel there is anything else that could do for him. Physical exam demonstrates a large ulceration on the plantar forefoot. There is forefoot amputation. Subcutaneous swelling skin thickening erythema is again noted on the left leg. Review of the ultrasound performed the same day demonstrates occlusive thrombus extending throughout the treated left small saphenous vein. No deep vein thrombus. Multiple incompetent patent varicose veins. The patient expressed a desire to proceed with treatment of left leg varicose veins with micro foam chemical ablation. VEIN/[facility] LMTD IMPRESSION: 1. Successful ablation of the left small saphenous vein 2. Persistent varicose vein. PLAN: Micro foam chemical ablation left leg incompetent varicose veins Nurse notes, history and physical were reviewed and confirmed, see attached forms. The nurse was present throughout the physical exam and consultation Dictated by: Corey Vuong MD on 06/20/2024 at 11:00 Approved by: Corey Vuong MD on 06/20/2024 at 11:05
[2024-06-20 11:11] VITALS: BMI 40.1
--- NOTE | 2024-06-20 11:11 | VEINCLINIC_ITS ---
Vital Signs 06/20/24 11:11 Height 6 ft Weight 134 kg BMI 40.1 Varicose Veins Patient in today for follow up ultrasound post EVLT of left SSV. Corey Ocasio MD personally performed the services described in this documentation, as scribed by Tatyana Woods RVT, RDMS in my presence and it is both accurate and complete. Tatyana Ocasio RVT, RDMS, am scribing for, and in the presence of, Dr. Corey Vuong and in the presence of the patient. thigh: bilateral (left leg>right leg), knee: bilateral, calf: bilateral, ankle: bilateral and harrington: bilateral aching, burning, cramping and tender 10 12 years Worsened in recent months: Yes sitting analgesics (Ibuprofen and Tylenol), elevating extremities, compression stockings and exercise Reports muscle spasms of leg, erythema, bruising, fatigue, heaviness, restless legs, limb pain, edema and leg edema History of lower extremity trauma: Yes (left foot partial amputation 2011 secondary to diabetes) Superficial thrombophlebitis: No Family history of varicose veins: no Has patient had previous lower extremity venous surgery: No Patient has previously received the following treatment(s) for lower extremity varicose veins: Reports none Does patient have a history of : not applicable Has patient had lower extremity venous scan with relux testing: No Support hose used: Yes Problems walking or doing physical activity: Yes (weakness) How does it affect you: unable to ambulate well due to weakness Do you walk much: No Do you stand much: No Review of Systems ROS Narrative Corey Ocasio MD personally performed the services described in this documentation, as scribed by Tatyana Woods RVT, RDMS in my presence and it is both accurate and complete. Tatyana Ocasio RVT, RDMS, am scribing for, and in the presence of, Dr. Corey Vuong and in the presence of the patient. Status of ROS 10 or more systems reviewed and unremark able except as noted in history and below Cardiovascular Reports: edema Integumentary/Breast Reports: itching, redness, skin pain, skin tenderness, skin swelling, non-healing lesion and changes in skin color Neurological Reports: numbness in extremities and weakness in extremities Hematologic/Lymphatic Reports: easy bruising and easy bleeding [facility] Medical History (Updated 05/21/24 @ 10:47 by Ema Gutierrez) Phlebitis and thrombophlebitis of superficial vessels of left lower extremity ?I80.02 - Phlebitis and thrombophlebitis of superficial vessels of left lower extremity (ICD-10) Umbilical hernia ?K42.9 - Umbilical hernia without obstruction or gangrene (ICD-10) Urine retention ?R33.9 - Retention of urine, unspecified (ICD-10) Hypertension ?I10 - Essential (primary) hypertension (ICD-10) Obesity ?E66.9 - Obesity, unspecified (ICD-10) Bilateral leg edema ?R60.0 - Localized edema (ICD-10) Pain due to varicose veins of both lower extremities ?I83.813 - Varicose veins of bilateral lower extremities with pain (ICD-10) Diabetes 1.5, managed as type 2 ?E13.9 - Other specified diabetes mellitus without complications (ICD-10) Partial nontraumatic amputation of left foot ?Z89.432 - Acquired absence of left foot (ICD-10) Surgical History (Updated 05/14/24 @ 15:39 by Herson Reaves) Status post laser ablation of incompetent vein ?Z98.890 - Other specified postprocedural states (ICD-10) Family History (Updated 04/26/24 @ 09:04 by Herson Reaves) Other Emphysema lung Social History (Updated 04/26/24 @ 09:04 by Herson Reaves) Within the past year, how often did you have a drink containing alcohol: never Score interpretation: A score less than 4 is consistent with normal alcohol consumption. Smoking status: Never smoker Non-prescribed substance use: denies use Meds Home Medications and Allergies Home Medications ?Medication ?Instructions ?Recorded ?Confirmed ?Type insulin aspart (niacinamide) subcut diabetes 04/26/24 History linagliptin 2.5 mg-metformin ER 1 tab PO DAILY 04/26/24 04/26/24 History 1,000 mg tablet,extended release 24 hr (Jentadueto XR) lisinopril 20 mg tablet 10 mg PO DAILY 04/26/24 04/26/24 History gabapentin 600 mg tablet 600 mg PO TID 05/14/24 05/14/24 History losartan 100 mg tablet 100 mg PO DAILY 05/14/24 05/14/24 History Allergies Allergy/AdvReac Type Severity Reaction Status Date / Time penicillamine Allergy Intermediate Rash Verified 04/26/24 09:07 Exam Narrative Exam Narrative: Corey Ocasio MD personally performed the services described in this documentation, as scribed by Tatyana Woods RVT, RDMS in my presence and it is both accurate and complete. Tatyana Ocasio RVT, RDMS, am scribing for, and in the presence of, Dr. Corey Vuong and in the presence of the patient. Constitutional Documenting provider has reviewed patient's vital signs: yes Common normals: oriented x3 Nutritional appearance: overweight Lymph Lymphatic: no lymphedema noted Cardio Peripheral pulses: posterior tibial pulses present and dorsalis pedis pulses present Extremity General: calf tenderness and edema Right lower extremity: lower leg Right lower leg: inspection and palpation Left lower extremity: lower leg Left lower leg: inspection and palpation Neuro Common normals: oriented x3 Results Imaging Venous US: Radiologist's impression: The ultrasound demonstrates Heat induced thrombus visualized arising at distal thigh and extending through distal calf. Assessment and Plan Assessment and Plan (1) Phlebitis and thrombophlebitis of superficial vessels of left lower extremity: Plan Patient in today for follow up ultrasound of lower extremity following treatment of EVLT of left leg SSV completed on 05/30/24. Corey Ocasio MD personally performed the services described in this documentation, as scribed by Tatyana Woods RVT, RDMS in my presence and it is both accurate and complete. Tatyana Ocasio RVT, RDMS, am scribing for, and in the presence of, Dr. Corey Vuong and in the presence of the patient.
--- NOTE | 2024-06-20 11:13 | P.DS_ITS ---
Discharge Plan Discharge Disposition: Home, Self-Care Outpatient Diagnostics: VC INJ Foam Sclerosant WUS ASSOCIATE MATERIAL HANDLER (Routine) Timeframe: 2 Weeks Facility: [facility] - Location[facility] Ordered By: Corey Vuong Follow Up Appointments: 07/02/24 Plan of Treatment: Varithena/microfoam chemical ablation left leg. Print Language: Togolese Discharge Date/Time: 06/20/24 11:14
--- NOTE | 2024-06-20 11:13 | W.VEIN ---
Discharge Plan Discharge Disposition: Home, Self-Care Outpatient Diagnostics: VC INJ Foam Sclerosant WUS MOVING PICTURE PRODUCER (Routine) Timeframe: 2 Weeks Facility: [facility] - Location: [facility] Ordered By: Corey Vuong Follow Up Appointments: 07/02/24 Plan of Treatment: Varithena/microfoam chemical ablation left leg. Print Language: St Helenian Discharge Date/Time: 06/20/24 11:14
== END 2024-06-20 11:14 | disposition home or self-care (01) ==
PROVIDERS: PCP Radiology Diagnostic Radiology; Visit Provider Radiology Diagnostic Radiology
DX: I83.813 Varicose veins of bilateral lower extremities with pain (principal)
CPT/HCPCS: 93971; G0463

== ENCOUNTER 2024-08-06 15:27 | Outpatient (OUT) | payer MEDICARE, SELFPAY | END 2024-08-06 15:28 | disposition home or self-care (01) | LOC: WC 15:27 | PROVIDERS: PCP Radiology Diagnostic Radiology; Visit Provider Physician Assistant | DX: E11.621 Type 2 diabetes mellitus with foot ulcer (principal); L97.422 Non-pressure chronic ulcer of left heel and midfoot with fat layer exposed | CPT/HCPCS: 11043; 29445 ==

== ENCOUNTER 2024-08-12 15:24 | Outpatient (OUT) | payer MEDICARE, SELFPAY | END 2024-08-12 15:25 | disposition home or self-care (01) | LOC: WC 15:24 | PROVIDERS: PCP Radiology Diagnostic Radiology; Visit Provider Physician Assistant | DX: E11.621 Type 2 diabetes mellitus with foot ulcer (principal); L97.422 Non-pressure chronic ulcer of left heel and midfoot with fat layer exposed | CPT/HCPCS: 29445 ==

== ENCOUNTER 2024-08-20 10:57 | Outpatient (OUT) | payer MEDICARE, SELFPAY | END 2024-08-20 10:58 | disposition home or self-care (01) | LOC: WC 10:57 | PROVIDERS: PCP Radiology Diagnostic Radiology; Visit Provider Physician Assistant | DX: E11.621 Type 2 diabetes mellitus with foot ulcer (principal); L97.422 Non-pressure chronic ulcer of left heel and midfoot with fat layer exposed | CPT/HCPCS: 11043; 11046; 29445 ==

== ENCOUNTER 2024-08-28 14:37 | Outpatient (OUT) | payer MEDICARE, SELFPAY | END 2024-08-28 14:38 | disposition home or self-care (01) | LOC: WC 14:38 | PROVIDERS: PCP Radiology Diagnostic Radiology; Visit Provider Physician Assistant | DX: E11.621 Type 2 diabetes mellitus with foot ulcer (principal); L97.422 Non-pressure chronic ulcer of left heel and midfoot with fat layer exposed | CPT/HCPCS: 29445 ==

== ENCOUNTER 2024-09-04 16:10 | Outpatient (OUT) | payer MEDICARE, SELFPAY | END 2024-09-04 16:11 | disposition home or self-care (01) | LOC: WC 16:10 | PROVIDERS: PCP Radiology Diagnostic Radiology; Visit Provider Podiatrist Foot & Ankle Surgery | DX: E11.621 Type 2 diabetes mellitus with foot ulcer (principal); L97.422 Non-pressure chronic ulcer of left heel and midfoot with fat layer exposed | CPT/HCPCS: 11043; 29445 ==

== ENCOUNTER 2024-09-11 15:16 | Outpatient (OUT) | payer MEDICARE, SELFPAY | END 2024-09-11 15:17 | disposition home or self-care (01) | LOC: WC 15:17 | PROVIDERS: PCP Radiology Diagnostic Radiology; Visit Provider Physician Assistant | DX: E11.621 Type 2 diabetes mellitus with foot ulcer (principal); L97.422 Non-pressure chronic ulcer of left heel and midfoot with fat layer exposed | CPT/HCPCS: 29445 ==

== ENCOUNTER 2024-09-18 15:53 | Outpatient (OUT) | payer MEDICARE, SELFPAY | END 2024-09-18 15:54 | disposition home or self-care (01) | LOC: WC 15:53 | PROVIDERS: PCP Radiology Diagnostic Radiology; Visit Provider Physician Assistant | DX: E11.621 Type 2 diabetes mellitus with foot ulcer (principal); L97.422 Non-pressure chronic ulcer of left heel and midfoot with fat layer exposed; L60.9 Nail disorder, unspecified | CPT/HCPCS: 11043 ==

== ENCOUNTER 2024-10-02 15:38 | Outpatient (OUT) | payer MEDICARE, SELFPAY | END 2024-10-02 15:39 | disposition home or self-care (01) | LOC: WC 15:38 | PROVIDERS: PCP Radiology Diagnostic Radiology; Visit Provider Physician Assistant | DX: E11.621 Type 2 diabetes mellitus with foot ulcer (principal); L97.422 Non-pressure chronic ulcer of left heel and midfoot with fat layer exposed | CPT/HCPCS: 29445 ==

== ENCOUNTER 2024-10-08 15:18 | Outpatient (OUT) | payer MEDICARE, SELFPAY | END 2024-10-08 15:19 | disposition home or self-care (01) | LOC: WC 15:18 | PROVIDERS: PCP Radiology Diagnostic Radiology; Visit Provider Physician Assistant | DX: E11.621 Type 2 diabetes mellitus with foot ulcer (principal); L97.422 Non-pressure chronic ulcer of left heel and midfoot with fat layer exposed | CPT/HCPCS: 29445 ==

== ENCOUNTER 2024-10-21 10:36 | Outpatient (OUT) | payer MEDICARE, SELFPAY | END 2024-10-21 10:37 | disposition home or self-care (01) | LOC: WC 10:36 | PROVIDERS: PCP Radiology Diagnostic Radiology; Visit Provider Physician Assistant | DX: E11.621 Type 2 diabetes mellitus with foot ulcer (principal); L97.422 Non-pressure chronic ulcer of left heel and midfoot with fat layer exposed | CPT/HCPCS: G0463 ==

== ENCOUNTER 2024-10-25 11:55 | Outpatient (OUT) | payer MEDICARE, SELFPAY | END 2024-10-25 11:56 | disposition home or self-care (01) | LOC: WC 11:56 | PROVIDERS: PCP Radiology Diagnostic Radiology; Visit Provider Physician Assistant | DX: E11.621 Type 2 diabetes mellitus with foot ulcer (principal); L97.422 Non-pressure chronic ulcer of left heel and midfoot with fat layer exposed | CPT/HCPCS: 29445 ==

== ENCOUNTER 2024-10-30 13:36 | Outpatient (OUT) | payer MEDICARE, SELFPAY ==
--- NOTE | 2024-10-30 | XR_ITS ---
The [address] [address] Patient Name: MONTRELL LORA MRN: [id number] date: 1960 Sex: M Assigned Patient Location: Current Patient Location: Accession/Order Number: [id number] Exam Date: 10/30/2024 17:55 Report Date: 10/30/2024 17:57 At the request of: NALDO CHAKRABORTY Procedure: XR foot LT min 3V 3 views left foot plain film COMPARISON:None HISTORY: Left foot pain. Wound dorsal lateral forefoot and midfoot. ACUTE FINDINGS: No acute bony destructive changes. DEGENERATIVE CHANGE: A moderate degeneration. Posterior for calcaneal spurring. SOFT TISSUE FINDINGS: The distal soft tissue swelling. No subcutaneous air. No radiodense foreign body. JOINT EFFUSION: None POSTOP CHANGES: Transmetatarsal amputation BONE MINERALIZATION: Adequate XR/XR foot LT min 3V IMPRESSION: Transmetatarsal amputation. Diffuse soft tissue prominence. No subcutaneous air. No plain film findings of acute osteomyelitis. Degenerative changes and calcaneal spurring. Impression dictated by: Migue Wild M.D.10/30/2024 5:57 PM Dictation Location: [place] [address] Electronically authenticated by: [id number] Y Date: 10/30/2024 17:57
== END 2024-10-30 13:37 | disposition home or self-care (01) ==
LOC: WC 13:36
PROVIDERS: PCP Radiology Diagnostic Radiology; Visit Provider Physician Assistant
DX: M79.672 Pain in left foot (principal); M77.32 Calcaneal spur, left foot; E11.621 Type 2 diabetes mellitus with foot ulcer; L97.422 Non-pressure chronic ulcer of left heel and midfoot with fat layer exposed
CPT/HCPCS: 11043; 29445; 73630

== ENCOUNTER 2024-11-21 12:57 | Outpatient (OUT) | payer MEDICARE, SELFPAY | END 2024-11-21 12:58 | disposition home or self-care (01) | LOC: WC 12:58 | PROVIDERS: PCP Radiology Diagnostic Radiology; Visit Provider Physician Assistant | DX: E11.621 Type 2 diabetes mellitus with foot ulcer (principal); L97.422 Non-pressure chronic ulcer of left heel and midfoot with fat layer exposed | CPT/HCPCS: G0463 ==

== ENCOUNTER 2025-03-25 12:51 | Outpatient (OUT) | payer MEDICARE, SELFPAY | END 2025-03-25 12:52 | disposition home or self-care (01) | LOC: WC 12:51 | PROVIDERS: Visit Provider Physician Assistant | DX: E11.621 Type 2 diabetes mellitus with foot ulcer (principal); L97.422 Non-pressure chronic ulcer of left heel and midfoot with fat layer exposed | CPT/HCPCS: 11043; G0463 ==

== ENCOUNTER 2025-04-01 13:49 | Outpatient (OUT) | payer MEDICARE, SELFPAY | END 2025-04-01 13:50 | disposition home or self-care (01) | LOC: WC 13:50 | PROVIDERS: Visit Provider Physician Assistant | DX: E11.621 Type 2 diabetes mellitus with foot ulcer (principal); L97.422 Non-pressure chronic ulcer of left heel and midfoot with fat layer exposed | CPT/HCPCS: 29445 ==

== ENCOUNTER 2025-04-14 10:10 | Outpatient (OUT) | payer MEDICARE, SELFPAY ==
--- OUTSIDE RECORDS SUMMARY | 2024-09-10 04:50 | XMS_ITS ---
Author Organization [facility] Servic es Address [address] [facility] [place] [address] Care Team Providers Care Upholstery Trimmer Name Role Phone Paresh Helm Primary Care Provider Dania Mario Unavailable REASON FOR VISIT DELIVERY-LIBERTY CASE IS HERE KH Encounters Encounter Location Date Provider Diagnosis [facility] [address] [place] [address] 09/10/2024 Paresh Helm Plan Of Treatment No Information Progress Notes * MONTRELL LORA ADOB:1960 ([age] yo M)Acc No.[id number]:09/10/2024 Dental Appointment Patient: MONTRELL SIN Provider: Edin Helm DDS :1960 A ge:64 Y S ex:Male Date:09/10/2024 Address:[address] [facility] [address], [place], [id number] Subjective: * Chief Complaints: * 1 . DELIVERY-LIBERTY CASE IS HERE KH. * Medical History: Objective: * Vitals: Assessment: Plan: * Treatment: * Images: * Electronic signature of Norma Helm DDS on 04/14/2025 at 02:28 PM EDT Sign off status: Pending * Provider: Edin Helm DDS Date: 0 09/10/2024 Generated for Patsy power/Razia/Sabrinaitting on: 0 04/14/2025 02:28 PM EDT
--- OUTSIDE RECORDS SUMMARY | 2024-09-13 09:00 | XMS_ITS ---
Author Organization [facility] Servic es Address [address] [place] [address] Care Team Providers Care Single Stayer Operator Name Role Phone Paresh Helm Primary Care Provider Barak Dania Oscar Unavailable [phone] REASON FOR VISIT ADJUSTMENT Encounters Encounter Location Date Provider Diagnosis [facility] [address] [place] [address] 09/13/2024 Paresh Helm Plan Of Treatment No Information Progress Notes * MONTRELL LORA ADOB:1960 ([age] yo M)Acc No.[id number]:09/13/2024 Dental Appointment Patient: MONTRELL SIN Provider: Edin Helm DDS :1960 A ge:64 Y S ex:Male Date:09/13/2024 Address:[address] [facility] [address], [place], [id number] Subjective: * Chief Complaints: * 1 . ADJUSTMENT. * Medical History: Objective: * Vitals: Assessment: Plan: * Treatment: * Images: * Electronic signature of Norma Helm DDS on 04/14/2025 at 02:27 PM EDT Sign off status: Pending * Provider: Edin Helm DDS Date: 09/13/2024 Generated for Patsy ng/Facarlos/eTransmitting on: 0 04/14/2025 02:27 PM EDT
--- OUTSIDE RECORDS SUMMARY | 2024-10-01 04:00 | XMS_ITS ---
Author Organization [facility] Servic es Address [address] [place] [address] Care Team Providers Care Dry Chain Worker Name Role Phone Paresh Helm Primary Care Provider [phone] Barak Dania Oscar Unavailable [phone] REASON FOR VISIT ADJUSTMENT Encounters Encounter Location Date Provider Diagnosis [facility] [address] [place] [address] 10/01/2024 Paresh Helm Plan Of Treatment No Information Progress Notes * MONTRELL LORA ADOB:1960 ([age] yo M)Acc No.[id number]:10/01/2024 Dental Appointment Patient: MONTRELL SIN Provider: Edin Helm DDS :1960 A ge:64 Y S ex:Male Date:10/01/2024 Address:[address] [facility] [address], [place], [id number] Subjective: * Chief Complaints: * 1 . ADJUSTMENT. * Medical History: Objective: * Vitals: Assessment: Plan: * Treatment: * Images: * Electronic signature of Norma Helm DDS on 04/14/2025 at 02:27 PM EDT Sign off status: Pending * Provider: Edin Helm DDS Date: 10/01/2024 Generated for Patsy power/Facarlos/eTransmitting on: 0 04/14/2025 02:27 PM EDT
--- OUTSIDE RECORDS SUMMARY | 2024-11-18 09:41 | XMS_ITS ---
Author Organization [facility] [place] Address [address] [place] [address] Care Team Providers Care Statistical Reporting Analyst Name Role Phone Corey Vuong MD Primary Care Provider Harvey Kent [facility] [phone] Encounters Encounter Location Date Provider Diagnosis [facility] (PODI[facility]) [address] [place] [address] [place] [address] 11/18/2024 Harvey Rose Plan Of Treatment No Information Progress Notes * Oliverio LORADOB:1960 (64 yo M)Acc No.[id number]:11/18/2024 Patient: Oliverio SIN :1960 A ge:64 Y S ex:Male Address: [place], [address] * true * Date: Generated for Ozzyi ng/Faxing/eTransmitting on: 0 04/14/2025 02:28 PM EDT
--- OUTSIDE RECORDS SUMMARY | 2025-04-14 14:27 | XMS_ITS | Clinical Summary ---
Author Organization [facility] Address [address] [place] [address] Care Team Providers Care Inspector Circuitry Negative Name Role Phone Mounika Brooke MD Primary Care Provider Jennifer Orta Unavailable [phone] Annette Vega RN Unavailable Janice Kevin FURNACE HAND Unavailable Allergies Active Allergy Reactions Criticality Noted Date Comments Penicillamine Unknown 06/13/2023 Penicillins Rash Medium 12/01/2014 Medications albuterol HFA 90 mcg/act inhaler Inhale 2 puffs every 4 (four) hours if needed. 11/04/19 23 Active Continuous Blood Gluc Internet Marketing Director (FreeStyle Sage 3 [place]) deviceIndication s:Type 2 diabetes mellitus with hyperglycemia, with long-term current use of insulin (HCC),Long-term insulin use (HCC) 1 each continuously 1 each 09/25/19 24 Active Continuous Blood Gluc Sensor (FreeStyle Sage 3 Sensor) miscIndications: Type 2 diabetes mellitus with hyperglycemia, with long-term current use of insulin (HCC),Long-term insulin use (HCC) 1 each every 14 (fourteen) days 6 each 3 09/25/19 24 Active pen needle 31G x 8 mm miscIndications: Type 2 diabetes mellitus with hyperglycemia, with long-term current use of insulin (HCC) Use as instructed 100 each 12 06/21/20 24 025 Active Misc. Devices (Cane) miscIndications: Difficulty walking 1 each continuously 1 each 07/03/20 24 Active losartan (Cozaar) 100 MG tabletIndication s:Type 2 diabetes mellitus with hyperglycemia, with long-term current use of insulin ([facility]) Take 1 tablet (100 mg) by mouth Daily 100 tablet 1 12/04/19 25 Active gabapentin (Neurontin) 600 MG tabletIndication s:Type 2 diabetes mellitus with hyperglycemia, with long-term current use of insulin (HCC) Take 1 tablet (600 mg) by mouth in the morning and 1 tablet (600 mg) in the evening and 1 tablet (600 mg) before bedtime. 90 tablet 3 12/26/19 25 025 Active linaGLIPtin (Tradjenta) 5 MG tabletIndication s:Type 2 diabetes mellitus with hyperglycemia, with long-term current use of insulin ([facility]) Take 1 tablet (5 mg) by mouth Daily 90 tablet 1 12/26/19 25 025 Active insulin regular (HumuLIN R U-500 KWIKPEN) 500 UNIT/ML CONCENTRATED injectionIndicat ions:Type 2 diabetes mellitus with hyperglycemia, with long-term current use of insulin ([facility]) Inject 50 Units under the skin in the morning and 50 Units in the evening and 50 Units before bedtime. 27 mL 1 12/26/19 25 025 Active DULoxetine (Cymbalta) [address] capsuleIndicatio ns:Anxiousness Take 1 capsule (60 mg) by mouth Daily 90 capsule 3 01/23/20 25 026 Active hydrALAZINE (Apresoline) 10 MG tabletIndication s:Anxiousness Take 1 tablet (10 mg) by mouth every 12 (twelve) hours 180 tablet 3 01/23/20 25 026 Active glucose blood (ExopriseTouch Verio) test stripIndications :Type 2 diabetes mellitus with hyperglycemia, with long-term current use of insulin (HCC) USE TO TEST BLOOD SUGARS THREE TIMES A DAY. 300 each 2 03/13/20 25 Active Alcohol Swabs (Alcohol Prep) 70 % pads USE TO TEST BLOOD SUGAR 3 TIMES PER DAY 12/22/19 25 Active Blood Glucose Monitoring Suppl (ExopriseToCelect Verio Flex System) w/Device kit USE DIRECTED TO TEST BLOOD SUGAR 12/25/19 25 Active NovoLOG FLEXPEN 100 UNIT/ML pen 03/07/20 25 Active Basaglar KwikPen 100 UNIT/ML pen Inject 30 Units under the skin in the morning and 30 Units before bedtime. 03/07/20 25 Active B-D UF III MINI PEN NEEDLES 31G X 5 MM [facility] TO INJECT INSULIN UP TO 3 TIMES PER DAY 12/22/19 Active atorvastatin (Lipitor) 40 MG tablet Take 40 mg by mouth 1 (one) time each day at the same time Discontinu ed(Med list cleanup) lisinopril-hydro CHLOROthiazide 20-25 MG tablet Take 1 tablet by mouth in the morning. 06/21/20 Discontinu ed(Discont inued by another clinician) Symbicort 160-4.5 MCG/ACT inhaler Inhale 2 puffs in the morning and 2 puffs before bedtime. 05/09/20 Discontinu ed(Non-com pliance) guaiFENesin (Mucinex) 600 MG 12 hr tablet Take 1,200 mg by mouth in the morning and 1,200 mg before bedtime. 06/15/20 Discontinu ed(Therapy completed) potassium chloride ER (Micro-K) 10 MEQ ER capsule Take 10 mEq by mouth Daily 06/21/20 Discontinu ed(Discont inued by another clinician) torsemide (Demadex) 20 MG tablet Take 60 mg by mouth in the morning and 60 mg in the evening and 60 mg before bedtime. 10/12/19 24 Discontinu ed(Discont inued by another clinician) Fiasp FlexTouch 100 UNIT/ML injection inject PLUS ISS #2 (EXPECT DAILY DOSE OF 80 UNITS) 10/12/19 24 Discontinu ed(Therapy completed) rOPINIRole (Requip) 2 MG tabletIndication s:RLS (restless legs syndrome) Take 1 tablet (2 mg) by mouth at bedtime 90 tablet 3 04/29/20 24 Discontinu ed(Non-com pliance) methylPREDNISolo ne (Medrol Dospak) 4 MG tabletsIndicatio ns:Non-recurrent acute serous otitis media of right ear Follow schedule on package instructions 21 tablet 06/21/20 24 07/28/2 025 Discontinu ed(Therapy completed) oxyCODONE-acetam inophen (Percocet) 5-325 MG tablet 06/23/20 24 025 Discontinu ed(Therapy completed) doxycycline (Vibramycin) 100 MG capsule Take 100 mg by mouth in the morning and 100 mg before bedtime. 06/23/20 24 025 Discontinu ed(Therapy completed) amLODIPine (Norvasc) 10 MG tablet Take 1 tablet by mouth Daily 025 Discontinu ed(Discont inued by another clinician) Active Problems Problem Noted Date Diagnosed Date Hyperglycemia 03/17/2025 Dietary counseling and surveillance 06/29/2024 Vitamin D deficiency, unspecified 06/29/2024 Chest wall pain 06/21/2024 (HFpEF) heart failure with preserved ejection fr action 04/29/2024 Acute on chronic respiratory failure with hypoxia and hypercapnia 04/29/2024 Assessment & Plan (04/29/2024 2:50 PM EDT): Stable, continue to monitor. No change in regimen. Discussed concerning sx to monitor for. Continue oxygen use - pt would benefit from portable oxygen BPH with urinary obstruction 04/29/2024 Obesity hypoventilation syndrome 04/29/2024 Acute diastolic heart failure 11/17/2023 Coordination problem 11/17/2023 Diabetic cataract 11/17/2023 Late effect of internal injury to intra-abdomina l organs 11/17/2023 Muscle weakness 11/17/2023 Retention of urine 11/17/2023 Chronic hypoxemic respiratory failure 09/27/2023 Assessment & Plan (04/29/2024 2:50 PM EDT): Stable, continue to monitor. No change in regimen. TC (obstructive sleep apnea) 07/03/2023 Assessment & Plan (04/29/2024 2:50 PM EDT): Stable, continue to monitor. No change in regimen. Absence of toe (HHS-HCC) 06/13/2023 Overview (06/13/2023): noted on 12/09/2018 XR Foot 3+ Views Right. added per outpatient CDI policy. 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 added per outpatient CDI policy. noted in 03/11/2021 Diabetic Eye Exam page 5. added per outpatient CDI policy. Assessment & Plan (04/29/2024 2:52 PM EDT): Encouraged follow up with optho Diabetic neuropathy 06/13/2023 Assessment & Plan (04/29/2024 2:49 PM EDT): Stable, continue to monitor. No change in regimen. Gastroesophageal reflux disease 06/13/2023 Assessment & Plan (04/29/2024 2:51 PM EDT): Stable, continue to monitor. No change in regimen. Hyperlipidemia 06/13/2023 Assessment & Plan (04/29/2024 2:52 PM EDT): Stable, continue to monitor. No change in regimen. Hypertension 06/13/2023 Assessment & Plan (04/29/2024 2:50 PM EDT): Stable, continue to monitor. No change in regimen. Osteoarthritis of knee 06/13/2023 Primary osteoarthritis 06/13/2023 Long-term insulin use 06/13/2023 Lymphedema of both lower extremities 06/13/2023 Morbid obesity 06/13/2023 Assessment & Plan (04/29/2024 2:51 PM EDT): - continue to monitor weight Onychomycosis 06/13/2023 Restless leg syndrome 06/13/2023 Assessment & Plan (04/29/2024 2:49 PM EDT): Currently uncontrolled as pt is out of meds. Refill sent of increased dose Chronic kidney disease, stage 3b 06/13/2023 Assessment & Plan (04/29/2024 2:51 PM EDT): Stable, continue to monitor. No change in regimen. Status post transmetatarsal amputation of left f oot 06/13/2023 Type 2 diabetes mellitus with hyperglycemia 05/22 Assessment & Plan (04/29/2024 2:51 PM EDT): - Uncontrolled, A1c > 13 - encouraged follow up with endo Varicose veins of lower extremity 06/13/2023 Assessment & Plan (04/29/2024 2:51 PM EDT): Continue to follow w/ vascular Resolved Problems Problem Noted Date Diagnosed Date Resolved Date Candiduria 03/17/2025 03/17/2025 Body mass index (BMI) 45.0-49.9, adult 06/29/2024 07/04/2024 Chronic obstructive pulmonar y disease with (acute) exacerbation 11/17/2023 07/04/2024 Acute exacerbation of chroni c obstructive pulmonary disease 11/17/2023 03/17/2025 Acute hypoxemic respiratory failure 07/03/2023 12/04/2023 CKD (chronic kidney disease) 07/03/2023 07/03/2023 Knee joint effusion 06/13/2023 07/03/20 23 Low back pain 06/13/2023 07/03/2023 Pain in right knee 06/13/2023 3 Polyneuropathy due to type 2 diabetes mellitus 06/13/2023 07/03/2023 Type 2 diabetes mellitus 06/13/2023 Type 2 diabetes mellitus with morbid obesity 3 07/03/2023 Overview (06/13/2023): linked DM with HLD per outpatient CDI policy. Encounters Date Type Department Care Team Description 04/14/2025 Patient Outreach [facility] [address] [place] [address] Janice Kevin LSW 04/11/2025 Patient Outreach [facility] [address] [place] [address] Annette Vega, RAFAEL 04/09/2025 Patient Outreach [facility] [address] [place] [place] [address] Annette Vega, RAFAEL 04/08/2025 Patient Outreach [facility] [place] [address] [place] [place] [address] Janice Kevin LSW 04/02/2025 Patient Outreach [facility] [place] [address] [place] [address] Annette Vega, RAFAEL 03/31/2025 Patient Outreach [facility] [place] [address] [place] [address] Annette Vega, RAFAEL 03/26/2025 Orders Only [facility] [place] [facility] [address] [place] [address] Kayla Sweeney MD 03/26/2025 Patient Outreach [place] [address] [place] [address] Annette Vega RN 03/24/2025 Patient Outreach [facility] [place] [address] [place] [address] Annette Vega RN 03/24/2025 Patient Outreach [facility] [place] [address] [place] [address] Janice Kevin LSW 03/24/2025 Telephone [facility] [place] [address] [place] [address] Mounika Brooke MD Care Coordination 03/19/2025 Patient Outreach [facility] [place] [address] [place] [place] [address] Janice Kevin, JACK 03/17/2025 Patient Outreach [facility] [place] [address] [place] [address] Annette Vega RN 03/14/2025 Patient Outreach [place] [address] [place] [address] Janice Kevin LSW 03/13/2025 12:20 PM EDT Office Visit [place] [address] [place] [address] Mounika Brooke MD Hospital discharge follow-up (Primary Dx); Type 2 diabetes mellitus with hyperglycemia, with long-term current use of insulin (HCC); Hyperosmolar hyperglycemic state (HHS) (HCC); Muscle cramps; Long-term insulin use (HCC); Difficulty walking; Essential (primary) hypertension ; Morbid obesity (CMS-HCC); BMI 38.0-38.9,adult 03/13/2025 Telephone [place] [address] [place] [address] Mounika Brooke MD Care Coordination 03/13/2025 Bamboo flowsheet [place] [address] [place] [address] Mounika Brooke MD 03/13/2025 Travel 03/11/2025 Patient Outreach [place] [address] [place] [address] Grecia Mcneil LPN 02/05/2025 12:20 PM EDT Office Visit [place] [address] [place] [address] Mounika Brooke MD Chronic hypoxemic respiratory failure (HCC) (Primary Dx); Leg weakness, bilateral; Essential (primary) hypertension ; Difficulty walking; Type 2 diabetes mellitus with hyperglycemia, with long-term current use of insulin (HCC); Long-term insulin use (HCC); Morbid obesity (CMS-HCC); BMI 36.0-36.9,adult 02/05/2025 Travel 02/05/2025 Telephone [place] [address] [place] [address] Aggie Toribio Care Coordination 01/22/2025 Refill [facility] [address] [place] [address] Brittani Marcano MA Anxiousness (Primary Dx) 01/14/2025 Telephone [facility] [address] [place] [address] Aggie Toribio Request For Order(s) from Last 3 Months Immunizations Immunization Administration Dates Next Due Influenza, Recombinant, inje ctable, preservative free 12/04/2024 Influenza, Unspecified 08/07/2018 Influenza, injectable, quadrivalent 06/04/2019,1 10/08/2017 Influenza, injectable, quadr ivalent, preservative free 05/22/2023,06/17/2022,07/20/2021 PPD Test 11/24/2023,11/17/2023 Pneumococcal Conjugate PCV 20 12/04/2024 Pneumococcal Polysaccharide PPSV23 08/07/2018,,11/24/2015 SARS-COV-2 (COVID-19) vaccin e, mRNA, spike protein, LNP, bivalent, preservative free, 30 mcg/0.3 mL dose, patel-sucrose formulation 06/17/2022 SARS-CoV-2, Unspecified 06/17/2022 Family History Medical History Relation Name Comments Emphysema Father Relation Name Status Comments Father Mother Social History Tobacco Use Types Packs/Day Years Used Date Smoking Tobacco: Never Smokeless Tobacco: Never Tobacco Cessation:Counseling Given: Not Answered Alcohol Use Standard Drinks/Week Comments Never 0 (1 standard drink = 0.6 oz pur e alcohol) caffeine 1-2 cups per day Overall Financial Resource Strain (CARDIA) Answe r Date Recorded How hard is it for you to pa y for the very basics like food, housing, medical care, and heating? Somewhat hard 04/11/2025 PHQ-2 Answer Date Recorded Patient Health Questionnaire-2 Score 1 12/04/2024 [facility] - Occupational Stress Questionnaire Answer Date Recorded Do you feel stress - tense, restless, nervous, or anxious, or unable to sleep at night because your mind is troubled all the time - these days? Very much 04/11/2025 PRAPARE - Transportation Answer Date Re corded In the past 12 months, has l ack of transportation kept you from medical appointments or from getting medications? Yes 03/22 In the past 12 months, has l ack of transportation kept you from meetings, work, or from getting things needed for daily living? Yes 04/11/2025 Housing Stability Vital Sign Answer James e Recorded In the last 12 months, was t here a time when you were not able to pay the mortgage or rent on time? Yes 04/11/2025 In the past 12 months, how m any times have you moved where you were living? 0 04/11/2025 At any time in the past 12 m [facility], were you homeless or living in a intermediate (including now)? No 04/11/2025 Sex and Gender Information Value Date Recorded Sex Assigned at Not on file Legal Sex Male 7:40 PM EDT Gender Identity Not on file Sexual Orientation Not on file Last Filed Vital Signs Vital Sign Reading Time Taken Comments Blood Pressure 124/60 03/13/2025 12:30 PM EDT Pulse 80 03/13/2025 12:30 PM EDT Temperature 36.9 C (98.4 F) 03/13/2025 12:30 PM EDT Respiratory Rate 18 09/04/2024 2:00 PM EST Oxygen Saturation 92% 03/13/2025 12:30 PM EDT Inhaled Oxygen Concentration - - Weight 124 kg (272 lb 9.6 oz) 03/13/2025 12:30 P M EDT Height 180.3 cm (5' 11 ) 03/13/2025 12:30 PM EDT Body Mass Index 38.02 03/13/2025 12:30 PM EDT Plan of Treatment Upcoming Encounters Date Type Department Care Team (Late st Contact Info) Description 04/30/2025 11:10 AM EDT Office Visit [facility] [address] [place] [address] Kayla Sweeney MD [address] [place] [address] Health Maintenance Due Date Last Done Comments CT Colonography 1959 Colonoscopy 1959 Colorectal Cancer Screening 1959 FIT-DNA 1959 FIT 1959 FOBT 1959 Sigmoidoscopy 1959 Diabetes: Hemoglobin A1C 12/03/2024 025, 06/21/2024, 10/24/2023 Influenza Vaccine (#1) 2025 5, 05/22/2023, 06/17/2022, Additional history exists Diabetes: Retinopathy Screening 07/22/2025 07/22/2024, 07/22/2024, 07/22/2024, Additional history exists Diabetes: Urine Protein Screening 03/26/2026 03/26/2025, 03/13/2025, 08/09/2023 (Manually Satisfied by [employer]) Pneumococcal Vaccine: 65+ Years Completed 12/04/2024, 08/07/2018, 08/07/2018, Additional history exists Procedures Procedure Name Priority Date/Time Associated Diagnosis Comments RENAL FUNCTION PANEL Routine 03/26/2025 3:35 PM EDT LIPID PANEL Routine 03/26/2025 3:35 PM EDT MICROALBUMIN / CREATININE URINE RATIO Routine 03/26/2025 3:35 PM EDT C-PEPTIDE Routine 03/26/2025 3:35 PM EDT VITAMIN D, 25-HYDROXY Routine 03/26/2025 3:35 PM EDT MICROALBUMIN / CREATININE URINE RATIO Routine 03/13/2025 1:00 PM EDT Type 2 diabetes mellitus with hyperglycemia, with long-term current use of insulin (HCC) POCT GLYCOSYLATED HEMOGLOBIN (HGB A1C) Routine 09/04/2024 2:02 PM EST Type 2 diabetes mellitus with hyperglycemia, with long-term current use of insulin (HCC) from Last 3 Months or Most Recently Relevant to Health Maintenance Results * LIPID PANEL (03/26/2025 3:35 PM EDT) us Kayla Sweeney MD LAB BLOOD ORDERABLES Final Re sult * VITAMIN D, 25-HYDROXY (03/26/2025 3:35 PM EDT) Kayla Sweeney MD LAB BLOOD ORDERABLES Final Re sult * Microalbumin / creatinine urine ratio (03/26/2025 3:35 PM EDT) Only the most recent of2 resultswithin the time period is included. Urine Urine specimen obtained by clean catch procedure / Unknown Kayla Sweeney MD LAB URINE ORDERABLES Final Re sult * C-peptide (03/26/2025 3:35 PM EDT) Blood Venous blood specimen / Unknown Result [facility] Kayla Sweeney MD LAB BLOOD ORDERABLES Final Re sult * Renal function panel (03/26/2025 3:35 PM EDT) Blood Venous blood specimen / Unknown Kayla Sweeney MD LAB BLOOD ORDERABLES Final Re sult * POCT glycosylated hemoglobin (Hb A1C) docked device (09/04/2024 2:02 PM EST) Hemoglobin A1C 12.9 Blood Venous blood specimen / Unknown 09/04/2024 2:02 PM EST Result [facility] Kayla Sweeney MD POINT OF CARE TEST ENTER/EDIT ORDERABLES Final Result from Last 3 Months or Most Recently Relevant to Health Maintenance Insurance MEDICAID [place] [facility] Care Teams Inspector Circuitry Negative Relationship Specialty Start Date End Date Mounika Brooke MD [address] [place] [address] PCP - General Family Medicine 07/27/23 Jennifer rOta PA [address] [place] [address] Physician Mailroom Manager Family Medicine 06/24/24 Annette Vega, RN [address] [place] [address] Registered Nurse Family Medicine 04/09/25 Janice Kevin LSW [address] [place] [address] Clinical Education Specialist Family Medicine 04/10/25
--- OUTSIDE RECORDS SUMMARY | 2025-04-14 14:28 | XMS_ITS | Encounter Summary ---
Author Organization [facility] Address [address] [place] [address] Care Team Providers Care Asbestos Siding Installer Name Role Phone Migue Stroud MD Primary Care Provider Mounika Brooke MD Primary Care Provider [phone] Deann Calles LPN Unavailable Mounika Brooke MD Unavailable [phone] Jennifer Orta Unavailable Mounika Brooke MD Unavailable [phone] Janice Kevin DIRECTOR MEDICAL AFFAIRS Unavailable Annette Vega RN Unavailable Janice Kevin DIRECTOR MEDICAL AFFAIRS Unavailable Encounter Details Date Type Department Care Team (Late st Contact Info) Description 05/17/2023 Abstract [facility] [address] [facility] [address] [place] [address] Sukh Harrington, DPM FACFAS [address] [facility] [place] [address] Social History Tobacco Use Types Packs/Day Years Used Date Smoking Tobacco: Never Alcohol Use Standard Drinks/Week Comments Never 0 (1 standard drink = 0.6 oz pur e alcohol) caffeine 1-2 cups per day Sex and Gender Information Value Date Recorded Sex Assigned at Not on file Legal Sex Male 7:40 PM EDT Gender Identity Not on file Sexual Orientation Not on file documented as of this encounter Plan of Treatment Upcoming Encounters Date Type Department Care Team (Late st Contact Info) Description 04/30/2025 11:10 AM EDT Office Visit [facility] [address] [place] [address] Kayla Sweeney MD [address] [place] [address] documented as of this encounter Visit Diagnoses Not on filedocumented in this encounter Care Teams Asbestos Siding Installer Relationship Specialty Start Date End Date Migue Stroud MD [address] [place] [facility] [place] [address] PCP - General Family Medicine 04/03/23 07/26/23 Mounika Brooke MD [address] [place] [address] PCP - General Family Medicine 07/27/23 Mounika Brooke MD [address] [place] [address] PCP - [facility] 01/20/24 08/20/24 Mounika Brooke MD [address] [place] [address] PCP - [facility] 11/19/24 03/20/25 Deann Calles LPN [address] [place] [address] Licensed Practical Nurse Family Medicine 09/26/2302/27 Jennifer Orta PA [address] [place] [address] Physician Developmental Writing Instructor Family Medicine 06/24/24 Kevin, Janice, DIRECTOR MEDICAL AFFAIRS [address] [place] [address] Camera Engineer Family Medicine 12/04/24 12/10/24 Annette Vega, RAFAEL [address] [place] [address] Registered Nurse Family Medicine 04/09/25 Janice Kevin LSW [address] [place] [address] Camera Engineer Family Medicine 04/10/25 documented as of this encounter
--- OUTSIDE RECORDS SUMMARY | 2025-04-14 14:28 | XMS_ITS | Patient Health Record ---
Author Organization [facility] es Address [address] [place] [address] Care Team Providers Care Herb Doctor Name Role Phone Paresh Helm Primary Care Provider [phone] Dania Mario Allergies Allergen (clinical drug ingredient) Drug/Non Drug Allergy documented on EMR Reaction Allergy Type Onset Date Status Penicillin Unknown Drug Allergy Active Reason For Referral No Information Encounters Encounter Location Date Provider Diagnosis [address] [address] 04/25/2024 Paresh Helm [facility] [address] [place] [address] 08/16/2024 Paresh Helm [facility] [address] [place] [address] 09/09/2024 Paresh Helm Complete loss of teeth, unspecified cause, class I K08.101 [facility] [address] [facility] [place] [address] 07/12/2024 Paresh Helm Other dental proc edure status Z98.818 Assessments Encounter Date Diagnosis (ICD Code) Assessment Notes Treatment Notes Treatment Clinical Notes Section Notes 07/12/2024 Other dental procedure status (ICD-10 - Z98.818) 09/09/2024 Complete loss of teeth, unspecified cause, class I (ICD-10 - K08.101) Plan Of Treatment No Information Insurance Providers Payer Name Payer Address Payer Phone Subscriber Number Group Number Insured Name Patient Relationship to Insured Coverage Start Date Coverage End Date MEDICAID [place] [address] [place] [phone] [id number] MONTRELL LORA Self - patient is the insured 2 2 [employer] [place] [employer]AGE [address] [place] [phone] [id number] MONTRELL LORA Self - patient is the insured 3 4 B MEDICAID [place] TO [facility] [address] [place] [address] [id number] MONTRELL LORA Self - patient is the insured 3 DENTAL [facility] [address] [address] [place] [address] [id number] MONTRELL LORA Self - patient is the insured 4
--- OUTSIDE RECORDS SUMMARY | 2025-04-14 14:28 | XMS_ITS | Continuity of Care Document ---
Author Organization [facility] Address [address] [place] [address] Phone [phone] Care Team Providers Care Narrow Gauge Operator Name Role Phone Nito Brooke DO Care Team Information Closet Builder [phone] Assessments Date Code Description Provider 09/14/2023 N17.9 Acute kidney failure, unspec ified Sasha Stevens 09/14/2023 R33.9 Retention of urine, unspecif ied Sasha Stevens 09/14/2023 E87.5 Hyperkalemia Sasha Stevens 09/14/2023 N18.31 Chronic kidney disease, stag e 3a Sasha Stevens 09/13/2023 N17.9 Acute kidney failure, unspec ified Flakitamonse Morgan M.D. 09/13/2023 R33.9 Retention of urine, unspecif ied Flakitajojo Morgan M.D. 09/13/2023 E87.5 Hyperkalemia Flakitajojo Morgan M.D. 09/13/2023 N18.31 Chronic kidney disease, stag e 3a Flakitajojo Morgan M.D. 06/14/2023 N17.9 Acute kidney failure, unspec ified Hugo Sales M.D. 06/14/2023 E87.5 Hyperkalemia Anca Crane 06/14/2023 I10 Essential (primary) hyperten abigail Hugo Sales M.D. 06/14/2023 E11.65 Type 2 diabetes mellitus wit h hyperglycemia Hugo Sales M.D. 07/24/2021 N17.9 Acute kidney failure, unspec ified Linden Cantrell MD 07/24/2021 N18.30 Chronic kidney disease, stag e 3 unspecified Linden Cantrell MD 07/24/2021 E11.22 Type 2 diabetes mellitus with diabetic chronic kidney disease Linden Cantrell MD 07/24/2021 E87.1 Hypo-osmolality and hyponatr emia Linden Cantrell MD 07/23/2021 N17.9 Acute kidney failure, unspec ified Hugo Sales M.D. 07/23/2021 N18.30 Chronic kidney disease, stag e 3 unspecified Hugo Sales M.D. 07/23/2021 E11.22 Type 2 diabetes mellitus with diabetic chronic kidney disease Hugo Sales M.D. 07/23/2021 E87.1 Hypo-osmolality and hyponatr ji Sales M.D.
--- OUTSIDE RECORDS SUMMARY | 2025-04-14 14:28 | XMS_ITS | Encounter Summary ---
Author Organization [facility] Address [address] [place] [address] Care Team Providers Care Supervisor Microfilm Duplicating Unit Name Role Phone Mounika Brooke MD Primary Care Provider Jennifer Orta Unavailable [phone] Encounter Details Date Type Department Care Team ([facility] st Contact Info) Description 04/02/2025 Patient Outreach [facility] [address] [place] [id number] Annette Vega, RAFAEL [address] [place] [address] Social History Tobacco Use Types Packs/Day Years Used Date Smoking Tobacco: Never Smokeless Tobacco: Never Alcohol Use Standard Drinks/Week Comments Never 0 (1 standard drink = 0.6 oz pur e alcohol) caffeine 1-2 cups per day PHQ-2 Answer Date Recorded Patient Health Questionnaire-2 Score 1 12/04/2024 Sex and Gender Information Value Date Recorded Sex Assigned at Not on file Legal Sex Male 7:40 PM EDT Gender Identity Not on file Sexual Orientation Not on file documented as of this encounter Progress Notes * Annette Vega RN - 04/02/2025 9:22 AM EDT Brittani from [facility] calls re: visit with pt and discussion of PT for pt r/t power chair need. Pt reported [facility] called and discussed PT - advised they are their own entity with [employer] whom they will utilize for the completion of that order, they choose who they work with. Will alert Janice for follow up possibly with [facility] on next steps as there seems to be some confusion. * JACK Murphy - 04/02/2025 9:22 AM EDT Noted. Contacted [facility] [phone] for follow up on power wheelchair. Spoke with Patrick who states chair was approved for delivery pending home assessment to be completed by local supplier [employer] stating this assessment needs to be completed and they did not receive any paperwork onthis so he is unsure this was completed or not. He states he will send a message to his dept, Maria E,to see if chair was delivered yet or not and will have someone call me back. Will await CB. * JACK Murphy - 04/02/2025 9:22 AM EDT Contacted [facility] [phone] for follow up on power wheelchair order pending since no call back on 04/02. They were still waiting for home assessment to be completed by supplier. Spoke with internet sales representative who states home assessment was completed on 03/27 and delivery is set to be shipped 04/06. This is a Monday so unsure. <April 04, 2025, 10:57 - JACK Murphy> Contacted pt for follow up to see if he has received any calls and he states the only call he received was from someone asking his height and weight. Reports they were supposed to set up a phone callfor an appt but he never heard anything. Advised I was just informed that chair will be shipped 04/06 but this is a Monday so unsure of accuracy. Advised him to call if any issues with receiving chair, etc. documented in this encounter Plan of Treatment Upcoming Encounters Date Type Department Care Team (Late st Contact Info) Description 04/30/2025 11:10 AM EDT Office Visit [facility] [address] [place] [address] Kayla Sweeney MD [address] [place] [address] documented as of this encounter Visit Diagnoses Diagnosis Type 2 diabetes mellitus with hyperglycemia, with long-term current use of insulin (HCC)- Primary Stage 3b chronic kidney disease ([facility]) documented in this encounter Care Teams Supervisor Microfilm Duplicating Unit Relationship Specialty Start Date End Date Mounika Brooke MD [address] [place] [address] PCP - General Family Medicine 07/27/23 Jennifer Orta PA [address] [place] [address] Physician Fire Extinguisher Mechanic Family Medicine 06/24/24 documented as of this encounter
--- OUTSIDE RECORDS SUMMARY | 2025-04-14 14:28 | XMS_ITS | Encounter Summary ---
Author Organization [facility] Address [address] [place] [address] Care Team Providers Care Solar Photovoltaic Electrician Name Role Phone Mounika Brooke MD Primary Care Provider [phone] Deann Calles LPN Unavailable Mounika Brooke MD Unavailable Jennifer Orta Unavailable [phone] Mounika Brooke MD Unavailable Janice Kevin INSIDE SALES ACCOUNT REPRESENTATIVE Unavailable Annette Vega RN Unavailable [phone] Janice Kevin INSIDE SALES ACCOUNT REPRESENTATIVE Unavailable Encounter Details Date Type Department Care Team (Late st Contact Info) Description 10/23/2023 Clinisync Result Encounter [facility] External Department Unsolicited Provider, Generic External Data Social History Tobacco Use Types Packs/Day Years [...] Encounters Date Type Department Care Team (Late Contact Info) Description 04/30/2025 11:10 AM EDT Office Visit [facility] [place] [facility] [address] [place] [phone] Kayla Sweeney MD [address] [place] [address] documented as of this encounter Procedures Procedure Name Priority Date/Time Associated Diagnosis Comments ECG 12-LEAD 10/23/2023 8:16 PM EST documented in this encounter Results * ECG 12 lead (10/23/2023 8:16 PM EST) 10/23/2023 8:16 PM EST Narrative [facility] - 10/24/2023 10:36 AM EST Ventricular Rate : 77 BPM Atrial Rate : 78 BPM P-R Interval : 180 ms QRS Duration : 97 ms Q-T Interval : 389 ms QTC Calculation(Bazett) : 441 ms Calculated P Afton : 53 degrees Calculated R Afton : -76 degrees Calculated T Afton : 65 degrees Sinus rhythm Left anterior fascicular block Abnormal ECG no stemi Confirmed by DARENLL YIN MD ([id number]), publishing editor ANNETTE ROSALES ([id number]) on 10/24/2023 10:36:37 AM NAME : MONTRELL LORA PID : [id number] : 1960 Gender : Male Race : ORD : [id number] Procedure Date : Oct 23 2023 20:16:04 Edit Date : Oct 24 2023 10:36:39 Diagnosis: Sinus rhythm Left anterior fascicular block Abnormal ECG no stemi Confirmed by DARNELL YIN MD ([id number]), publishing editor ANNETTE ROSALES ([id number]) on 10/24/2023 10:36:37 AM Test Reason : Other - Specify Location : 402 : [facility] [id number] Overread By : DARNELL YIN MD Edited By : ANNETTE ROSALES Referred By : , Acquired by : [id number], Procedure Note Radiology, Radiologist, - 10/24/2023 Ventricular Rate : 77 BPM Atrial Rate : 78 BPM P-R Interval : 180 ms QRS Duration : 97 ms Q-T Interval : 389 ms QTC Calculation(Bazett) : 441 ms Calculated P Afton : 53 degrees Calculated R Afton : -76 degrees Calculated T Afton : 65 degrees Sinus rhythm Left anterior fascicular block Abnormal ECG no stemi Confirmed by DARNELL YIN MD ([id number]), publishing editor ANNETTE ROSALES ([id number]) on10/24/2023 10:36:37 AM NAME : MONTRELL LORA PID : [id number] : 1960 Gender : Male Race : ORD : [id number] Procedure Date : Oct 23 2023 20:16:04 Edit Date : Oct 24 2023 10:36:39 Diagnosis: Sinus rhythm Left anterior fascicular block Abnormal ECG no stemi Confirmed by DARNELL YIN MD ([id number]), publishing editor ANNETTE ROSALES ([id number]) on10/24/2023 10:36:37 AM Test Reason : Other - Specify Location : 402 : [facility] [id number] Overread By : DARNELL YIN MD Edited By : ANNETTE ROSALES Referred By : , Acquired by : [id number], us Generic External Data Provider ECG ORDERABLES F inal Result Performing Organization Address City/State/[facility] Co de Phone Number [facility] documented in this encounter Visit Diagnoses Not on filedocumented in this encounter Care Teams Solar Photovoltaic Electrician Relationship Specialty Start Date End Date Mounika Brooke MD [address] [place] [address] PCP - General Family Medicine 07/27/23 Mounika Brooke MD [address] [place] [address] PCP - [facility] 01/20/24 08/20/24 Mounika Brooke MD [address] [place] [address] PCP - [facility] 11/19/24 03/20/25 Deann Calles LPN [address] [address] Licensed Practical Nurse Family Medicine 09/26/2302/27 Jennifer Orta PA [address] [place] [address] Physician Citrus Fruit Colorer Family Medicine 06/24/24 Janice Kevin LSW [address] [place] [address] Machine Sewer Family Medicine 12/04/24 12/10/24 Annette Vega, RN [address] [place] [address] Registered Nurse Family Medicine 04/09/25 Janice Kevin LSW [address] [place] [address] Machine Sewer Family Medicine 04/10/25 documented as of this encounter
--- OUTSIDE RECORDS SUMMARY | 2025-04-14 14:28 | XMS_ITS | Encounter Summary ---
Author Organization [facility] Address [address] [place] [address] Care Team Providers Care Magazine Worker Name Role Phone Mounika Brooke MD Primary Care Provider [phone] Jennifer Orta Unavailable [phone] Annette Vega RN Unavailable [phone] Encounter Details Date Type Department Care Team ([facility] Contact Info) Description 04/08/2025 Patient Outreach [facility] [address] [place] [address] Janice Kevin LSW [address] [place] [address] Social History Tobacco Use Types Packs/Day Years [...] as of this encounter Progress Notes * JACK Murphy - 04/08/2025 11:08 AM EDT SW received notice that [facility] nurse, Brittani left message regarding power chair. Spoke with Brittani and she states pt has not heard anything on power chair and wondering if we cansend order to local DME, [facility]. Advised since he is [employer] it needs to be sent through [facility]. Advised I spoke with [facility] on Monday who stated it was approved and being shipped. Will follow up with DME. <April 08, 2025, 11:47 - JACK Murphy> Contacted [facility] for follow up and notified that power chair was scheduled date for shipment was 04/06 but no further notes or tracking #. Placed on hold and notified that email will be sent to supervisor tellers with [employer] dept to get a follow up. Will await CB. <April 08, 2025, 12:59 - JACK Murphy> Received call again from [facility] Brittani and she states she visited pt today and there was no chair delivered yet. Advised I was notified that chair was being shipped 04/06 but awaiting a CB for clarification from [facility]. Will continue to monitor. * JACK Murphy - 04/08/2025 11:08 AM EDT No call back from [facility]. Contacted [facility] [phone] and spoke with Corine for follow upon pending power wheelchair order. Notified that order was shipped out on 04/06 and can take up to 15-30 business days to be delivered. [facility] can call [facility] to get tracking update on orders. Will notify pt. <April 09, 2025, 13:51 - JACK Murphy> SW contacted pt for follow up and provided update on power chair status. He verbalized understanding. Denies any current needs. Also notified [facility] nurse, Brittani to provide update. documented in this encounter Plan of Treatment Upcoming Encounters Date Type Department Care Team (Late st Contact Info) Description 04/30/2025 11:10 AM EDT Office Visit [facility] [place] [facility] [address] [place] [address] Kayla Sweeney MD [address] [place] [address] documented as of this encounter Visit Diagnoses Diagnosis Type 2 diabetes mellitus with hyperglycemia, with long-term current use of insulin (HCC)- Primary Stage 3b chronic kidney disease ([facility]-H[facility]) documented in this encounter Care Teams Magazine Worker Relationship Specialty Start Date End Date Mounika Brooke MD [address] [place] [address] PCP - General Family Medicine 07/27/23 Jennifer Orta PA [address] [place] [address] Physician Supervisor Cook Room Family Medicine 06/24/24 Annette Vega, RN [address] [place] [address] Registered Nurse Family Medicine 04/09/25 documented as of this encounter
--- OUTSIDE RECORDS SUMMARY | 2025-04-14 14:28 | XMS_ITS | Clinical Summary ---
Author Organization [facility] Address [address] [place] [address] Phone Care Team Providers Care Social Worker Name Role Phone Mounika Brooke MD Primary Care Provider [phone] Allergies Active Allergy Reactions Criticality Noted Date Comments Penicillamine Unknown 06/13/2023 Penicillins Rash Medium 12/01/2014 Medications albuterol 90 mcg/actuation inhaler Inhale 2 puffs every 4 hours if needed. 11/03/2022 Active atorvastatin (Lipitor) 40 mg tablet Take 1 tablet (40 mg) by mouth once daily. 08/15/2023 Active budesonide-form oteroL (Symbicort) 160-4.5 mcg/actuation inhaler Inhale 2 puffs 2 times a day. 05/09/2023 Active DULoxetine (Cymbalta) [address] capsule Take 1 capsule (60 mg) by mouth once daily. Active empagliflozin (Jardiance) 10 mg Take 1 tablet (10 mg) by mouth once daily. 10/28/2023 Active gabapentin (Neurontin) 600 mg tablet Take 1 tablet (600 mg) by mouth 3 times a day. 09/07/2023 Active hydrALAZINE (Apresoline) 10 mg tablet Take 1 tablet (10 mg) by mouth every 12 hours. 10/28/2023 Active insulin regular (HumuLIN R,NovoLIN R) 100 unit/mL injection Inject 15 Units under the skin. Active lisinopriL-hydr ochlorothiazide 20-25 mg tablet Take 1 tablet by mouth once daily. 06/21/2023 Active losartan (Cozaar) 100 mg tablet Take 1 tablet (100 mg) by mouth once daily. 05/22/2023 Active pantoprazole (ProtoNix) 40 mg EC tablet Take 1 tablet (40 mg) by mouth once daily. Active potassium chloride ER (Micro-K) 10 mEq ER capsule Take 1 capsule (10 mEq) by mouth once daily. 06/21/2023 Active predniSONE (Deltasone) 10 mg tablet Take 1 tablet (10 mg) by mouth once daily. 06/15/2023 Active tamsulosin (Flomax) 0.4 mg 24 hr capsule Take 1 capsule (0.4 mg) by mouth once daily. 10/02/2023 Active rOPINIRole (Requip) 1 mg tablet Take 1 tablet (1 mg) by mouth once daily at bedtime. 05/22/2023 Active torsemide (Demadex) 20 mg tablet Take 3 tablets (60 mg) by mouth 3 times a day. 10/12/2023 Active Active Problems Problem Noted Date Diagnosed Date Acute pulmonary edema 10/26/2023 Acute on chronic congestive heart failure 2023 Acute on chronic heart failu re with preserved ejection fraction 10/24/2023 Fluid overload 10/24/2023 Overview (11/14/2023): Last Assessment & Plan: 10 pound weight gain since recent admission, peripheral edema, 3+ pitting edema bilateral lower extremities He is on oxygen at home + Acute on chronic respiratory failure -91% on 6 L nasal cannula ProBNP in the 1000's, no prior values for comparison MARINA 170 down to 160s, EKG nonischemic, no chest pain, shortness of breath Also with CKD, creatinine 2.0 -Cardiology and nephrology consult -Heparin drip given troponin elevation, consider demand ischemia/renal insufficiency Vq scan done low prob for PE dc hep gtt - Diurese - IV lasix 40 TID ; on 40 torsemide daily at home - Fluid restriction, daily weights, strict I/Os - Compression stockings or Gustavo wrap, elevate legs -Echocardiogram ordered - Tele - Follow CBC, BMP Obesity, Class III, BMI 40-49.9 (morbid obesity) 10/24/2023 Systolic congestive heart failure 10/24/2023 Chronic hypoxemic respiratory failure 09/27/2023 Acute respiratory failure with hypoxia and hyper capnia 07/03/2023 TC (obstructive sleep apnea) 07/03/2023 Absence of toe (Multi) 06/13/2023 Overview (11/14/2023): noted on 12/09/2018 XR Foot 3+ Views Right. added per outpatient [facility]I policy. 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 added per outpatient [facility]I policy. Cramps of lower extremity 06/13/2023 Diabetic neuropathy (Multi) 06/13/2023 Gastroesophageal reflux disease 06/13/2023 Morbid obesity (Multi) 06/13/2023 Lymphedema of both lower extremities 06/13/2023 Hyperlipidemia 06/13/2023 Status post transmetatarsal amputation of left f oot (Multi) 06/13/2023 Stage 3b chronic kidney disease (Multi) 06/13/20 23 Overview (11/14/2023): Last Assessment & Plan: See fluid overload Cr 1.84 BUN 48 Continue taylor catheter This is a chronic catheter Echo with preserved LV AMY on CKD stage III prerenal most likely 2/2 cardiorenal pathology Nephrology following continue flomax Restless leg syndrome 06/13/2023 Overview (11/14/2023): Last Assessment & Plan: Symptoms uncontrolled - Increase requip - Continue gabapentin Primary hypertension 06/13/2023 Overview (11/14/2023): Last Assessment & Plan: BP controlled Continue TRAFFIC CONTROL SUPERVISOR hydralazine Primary osteoarthritis 06/13/2023 Osteoarthritis of knee 06/13/2023 Onychomycosis 06/13/2023 Type 2 diabetes mellitus with hyperglycemia ([facility]) 06/13/2023 Varicose veins of lower extremity 06/13/2023 Immunizations Immunization Administration Dates Next Due Flu vaccine (IIV4), preserva tive free *Check age/dose* 05/22/2023,06/17/2022,07/20/2021 Influenza, injectable, quadrivalent 06/04/2019,1 10/08/2017 Pneumococcal polysaccharide vaccine, 23-valent, age 2 years and older (PNEUMOVAX 23) 08/07/2018,08/07/2018,11/24/2015 Social History Tobacco Use Types Packs/Day Years Used Date Smoking Tobacco: Never Assessed Sex and Gender Information Value Date Recorded Sex Assigned at Not on file Legal Sex Male 8:32 PM EST Gender Identity Not on file Sexual Orientation Not on file Plan of Treatment Health Maintenance Due Date Last Done Comments CT Colonography 1960 Colonoscopy 1960 Colorectal Cancer Screening 1960 Creatinine Level 1960 Diabetes: Urine Protein Screening 1960 FIT-DNA (Cologuard) 1960 FIT 1959 Lipid Panel 1960 Medicare Annual Wellness Visit (AWV) 1960 Potassium Level 1959 Sigmoidoscopy 1960 MMR Vaccines (1 of 1 - Standard series) 01/08/1960 Diabetes: Retinopathy Screening 1969 Hepatitis C Screening 1977 DTaP/Tdap/Td Vaccines (1 - Tdap) 1981 PSA Prostate Cancer Screening 2009 Zoster Vaccines (1 of 2) 2009 RSV High Risk: (Elderly (60+) or Population) (1 - Risk 60-74 years 1-dose series) 2019 Pneumococcal Vaccine (2 of 2 - PCV) 08/07/2019 08/07/2018, 08/07/2018, 11/24/2015 Diabetes: Hemoglobin A1C 01/24/2024 10/24/2023 COVID-19 Vaccine ( season) 2024 06/17/2022, 07/27/2021, 12/03/2020, Additional history exists Echocardiogram 10/07/2024 10/07/2023 Influenza Vaccine (#1) 2025 , 06/17/2022, 07/20/2021, Additional history exists HIB Vaccines Aged Out No longer eligi ble based on patient's age to complete this topic HPV Vaccines Aged Out No longer eligi ble based on patient's age to complete this topic Hepatitis A Vaccines Aged Out No long er eligible based on patient's age to complete this topic Hepatitis B Vaccines Aged Out No long er eligible based on patient's age to complete this topic IPV Vaccines Aged Out No longer eligi ble based on patient's age to complete this topic Meningococcal Vaccine Aged Out No aria jonathan eligible based on patient's age to complete this topic Rotavirus Vaccines Aged Out No longer eligible based on patient's age to complete this topic Procedures Procedure Name Priority Date/Time Associated Diagnosis Comments ECHOCARDIOGRAM 10/07/2023 from Last 3 Months or Most Recently Relevant to Health Maintenance Results * ECHOCARDIOGRAM (10/07/2023) Narrative 10/07/2023 Ordered by an unspecified provider. us Generic Provider Scanning CV ECHO PROCEDURES Fin al Result from Last 3 Months or Most Recently Relevant to Health Maintenance Insurance MEDICAID [employer] MEDICAID [employer] Care Teams Social Worker Relationship Specialty Start Date End Date Mounika Brooke MD [address] [place] [address] PCP - General Family Medicine 11/02/23
--- OUTSIDE RECORDS SUMMARY | 2025-04-14 14:28 | XMS_ITS | Encounter Summary ---
Author Organization [facility] Address [address] [place] [address] Phone Care Team Providers Care Form Setter Metal Road Forms Name Role Phone Mounika Brooke MD Primary Care Provider [phone] Encounter Details Date Type Department Care Team (Late st Contact Info) Description 10/06/2023 Scanned Document [facility] [address] [place] [id number] Scanning, Generic Provider Social History Tobacco Use Types Packs/Day Years Used Date Smoking Tobacco: Never Assessed Sex and Gender Information Value Date Recorded Sex Assigned at Not on file Legal Sex Male 8:32 PM EST Gender Identity Not on file Sexual Orientation Not on file documented as of this encounter Plan of Treatment Not on file documented as of this encounter Visit Diagnoses Not on filedocumented in this encounter Care Teams Form Setter Metal Road Forms Relationship Specialty Start Date End Date Mounika Brooke MD [address] [place] [address] PCP - General Family Medicine 11/02/23 documented as of this encounter
--- OUTSIDE RECORDS SUMMARY | 2025-04-14 14:28 | XMS_ITS | Encounter Summary ---
Author Organization [facility] Address [address] [place] [address] Care Team Providers Care Lei Maker Name Role Phone Mounika Brooke MD Primary Care Provider Jennifer Orta Unavailable Annette Vega RN Unavailable Janice Kevin MEDICAL ACCOUNTING CLERK Unavailable Encounter Details Date Type Department Care Team (Late Contact Info) Description 03/26/2025 Orders Only [facility] [address] [place] [phone] Kayla Sweeney MD [address] [place] [address] Social History Tobacco Use Types Packs/Day Years [...] Description 04/30/2025 11:10 AM EDT Office Visit [facility] [address] [place] [address] Kayla Sweeney MD [address] [place] [address] documented as of this encounter Procedures Procedure Name Priority Date/Time Associated Diagnosis Comments LIPID PANEL Routine 03/26/2025 3:35 PM EDT VITAMIN D, 25-HYDROXY Routine 03/26/2025 3:35 PM EDT MICROALBUMIN / CREATININE URINE RATIO Routine 03/26/2025 3:35 PM EDT C-PEPTIDE Routine 03/26/2025 3:35 PM EDT RENAL FUNCTION PANEL Routine 03/26/2025 3:35 PM EDT documented in this encounter Results * Renal function panel (03/26/2025 3:35 PM EDT) Blood Venous blood specimen / Unknown Result [facility] Kayla Sweeney MD LAB BLOOD ORDERABLES Final Re sult * LIPID PANEL (03/26/2025 3:35 PM EDT) Result [facility] Kayla Sweeney MD LAB BLOOD ORDERABLES Final Re sult * Microalbumin / creatinine urine ratio (03/26/2025 3:35 PM EDT) Urine Urine specimen obtained by clean catch procedure / Unknown Result [facility] Kayla Sweeney MD LAB URINE ORDERABLES Final Re sult * C-peptide (03/26/2025 3:35 PM EDT) Blood Venous blood specimen / Unknown Result [facility] Kayla Sweeney MD LAB BLOOD ORDERABLES Final Re sult * VITAMIN D, 25-HYDROXY (03/26/2025 3:35 PM EDT) Result [facility] Kayla Sweeney MD LAB BLOOD ORDERABLES Final Re sult documented in this encounter Visit Diagnoses Not on filedocumented in this encounter Care Teams Lei Maker Relationship Specialty Start Date End Date Mounkia Brooke MD [address] [place] [address] PCP - General Family Medicine 07/27/23 Jennifer Orta PA [address] [place] [address] Physician Boner Meat Family Medicine 06/24/24 Annette Vega, RAFAEL [address] [place] [address] Registered Nurse Family Medicine 04/09/25 Janice Kevin LSW [address] [place] [address] Sheriff'S Detective Family Medicine 04/10/25 documented as of this encounter
--- OUTSIDE RECORDS SUMMARY | 2025-04-14 14:28 | XMS_ITS | Encounter Summary ---
Author Organization [facility] Address [address] [place] [address] Care Team Providers Care Power Plant Operators Supervisor Name Role Phone Mounika Brooke MD Primary Care Provider Jennifer Orta Unavailable [phone] Annette Vega RN Unavailable Janice Kevin Unavailable Encounter Details Date Type Department Care Team (Late Contact Info) Description 04/09/2025 Patient Outreach [facility] [address] [place] [phone] Annette Vega, RN [address] [place] [address] Social History Tobacco Use Types Packs/Day Years [...] Recorded Patient Health Questionnaire-2 Score 1 12/04/2024 [facility] of Occupat ional Health - Occupational Stress [...] any time in the past 12 m [facility], were you homeless or living in a halfway (including now)? No 04/11/2025 Sex and Gender Information Value Date Recorded Sex Assigned at Not on file Legal Sex Male 7:40 PM EDT Gender Identity Not on file Sexual Orientation Not on file documented as of this encounter Progress Notes * Annette Vega RN - 04/09/2025 2:38 PM EDT Weekly call #4, s/p hospitalization [facility] discharge 03/07 DX: severe hyperglycemia, acute hyperosmolar nonketotic hyperglycemia secondary to medication noncompliance with insulin, pseudohyponatremia Flowsheet Row Patient Outreach from 04/09/2025 in [facility] with Annette Vega RN Week Number Call Week 4 Call Was patient contacted successfully? Yes Have you had any urgent care/ED/Hospital visits since discharge? No Any medication changes since last contact? No Is the patient taking all medications as directed? Yes Have you visited your PCP since discharge? Yes Have you visited your specialist since discharge? Yes What is the home health agency? [facility] Has home health visited the patient within 72 hours of discharge? Yes What is the patient's perception of their health status since discharge? Returned to baseline/stable Is the patient/caregiver able to teach back the hierarchy of who to call/visit for symptoms/problems? PCP, Specialist, Home Health nurse, Urgent Care, ED, 911 Yes Pt gives verbal consent to continue CCM program, see new encounter for completion of enrollment. Pt continues with wound care at [facility], he is concerned about getting to next week appt d/t shortage on gas money. He admits to being very distraught with ongoing decline in [facility]. She is currently admitted to hospital in [place]. documented in this encounter Plan of Treatment Upcoming Encounters Date Type Department Care Team (Late st Contact Info) Description 04/30/2025 11:10 AM EDT Office Visit [facility] [place] [facility] [address] [place] [address] Kayla Sweeney MD [address] [place] [address] documented as of this encounter Visit Diagnoses Diagnosis Type 2 diabetes mellitus with hyperglycemia, with long-term current use of insulin (HCC)- Primary Stage 3b chronic kidney disease ([facility]) documented in this encounter Care Teams Power Plant Operators Supervisor Relationship Specialty Start Date End Date Mounika Brooke MD [address] [place] [address] PCP - General Family Medicine 07/27/23 Jennifer Orta PA [address] [place] [address] Physician Community Relations Representative Family Medicine 06/24/24 Annette Vega RN [address] [place] [address] Registered Nurse Family Medicine 04/09/25 Janice Kevin LSW [address] [place] [address] Room Attendants Family Medicine 04/10/25 documented as of this encounter
--- OUTSIDE RECORDS SUMMARY | 2025-04-14 14:28 | XMS_ITS | Clinical Summary ---
Author Organization [facility] Address [address] [place] [address] Care Team Providers Care Director Critical Care Name Role Phone Mounika Brooke MD Primary Care Provider [phone] Debora Levi MD Unavailable [phone] Allergies Active Allergy Reactions Criticality Noted Date Comments Penicillins Rash 12/01/2014 Medications insulin regular human (HUMULIN R) 100 unit/mL injection Inject 15 Units subcutaneously three times daily before meals. Active INSULIN GLARGINE,HUM.R EC.ANLOG (LANTUS SOLOSTAR SUBCUTANEOUS) Inject 40 Units subcutaneously daily at bedtime. Active ASPIRIN (ASPIR-81 ORAL) Take 81 mg by mouth once daily. Active atorvastatin (LIPITOR) 40 mg tablet 3 Active budesonide-for moterol (SYMBICORT) 160-4.5 mcg/actuation inhaler Inhale 2 Puffs as instructed. 3 Active gabapentin (NEURONTIN) 600 mg tablet Take 600 mg by mouth three times a day. 4 Active guaiFENesin (MUCINEX) 600 mg 12 hr tablet Take 1,200 mg by mouth. 3 Active FIASP FLEXTOUCH U-100 INSULIN 100 unit/mL (3 mL) pen inject 15-18-20 PLUS ISS #2 (EXPECT DAILY DOSE OF 80 UNITS) 4 Active rOPINIRole (REQUIP) 1 mg tablet Take 1 mg by mouth daily at bedtime. 3 Active tamsulosin (FLOMAX) 0.4 mg Take 1 capsule by mouth every afternoon. [address] (PROTONIX) 40 mg tablet Take 40 mg by mouth once daily. Active empagliflozin (JARDIANCE) 10 mg tablet Take 1 tablet by mouth once daily. 30 tablet 2 4 Active hydrALAZINE (APRESOLINE) 10 mg tablet Take 1 tablet by mouth every 12 hours. 60 tablet 2 4 Active torsemide (DEMADEX) 20 mg tablet Take 3 tablets by mouth two times a day. 180 tablet 2 4 Active Active Problems Problem Noted Date Diagnosed Date Acute pulmonary edema 10/26/2023 Acute on chronic congestive heart failure 2023 Acute respiratory failure with hypoxia and hyper capnia 10/25/2023 Fluid overload 10/24/2023 Assessment & Plan (10/26/2023 3:21 PM EST): 10 pound weight gain since recent admission, [...] ordered - Tele - Follow CBC, BMP Acute on chronic heart failu re with preserved ejection fraction 10/24/2023 Obesity, Class III, BMI >= 40 10/24/2023 Systolic congestive heart failure 10/24/2023 Type 2 diabetes mellitus wit h diabetic polyneuropathy, with long-term current use of insulin Assessment & Plan (10/26/2023 3:22 PM EST): Continue home lantus 15 units , mealtime and sliding scale - Accuchecks AC HS with level 2 SSI correction - Carb controlled diet - Hypoglycemia protocol Stage 3b chronic kidney disease Assessment & Plan (10/26/2023 3:26 PM EST): See fluid overload Cr 1.84 BUN 48 Continue taylor catheter This is a chronic catheter Echo with preserved LV AMY on CKD stage III prerenal most likely 2/2 cardiorenal pathology Nephrology following continue flomax Primary hypertension Assessment & Plan (10/26/2023 3:23 PM EST): BP controlled Continue PROTOZOOLOGY TEACHER hydralazine Restless leg syndrome Assessment & Plan (10/24/2023 2:21 AM EST): Symptoms uncontrolled - Increase requip - Continue gabapentin Resolved Problems Problem Noted Date Diagnosed Date Resolved Date Acute on chronic respiratory failure with hypoxemia 10/28/2023 Assessment & Plan (10/24/2023 2:19 AM EST): See fluid overload Immunizations Immunization Administration Dates Next Due COVID-19 original vaccine, f ull dose, monovalent (MODERNA) 07/27/2021,12/03/2020,11/02/2020 COVID-19 vaccine, age 12+ yr , bivalent (Tupalo-BIONTRaidarrr) 06/17/2022 influenza (IIV4) vaccine, ag e 6 mo - 64 yr, quadrivalent, PF (AFLURIA, FLUARIX, FLULAVAL, FLUZONE) 05/22/2023,06/17/2022,07/20/2021 influenza (IIV4) vaccine, qu adrivalent (AFLURIA, FLULAVAL, FLUZONE) 06/04/2019,08/07/2018 pneumococcal polysaccharide (PPV23) vaccine, 23 valent (PNEUMOVAX 23) 08/07/2018,08/07/2018,11/24/2015 Social History Tobacco Use Types Packs/Day Years Used Date Smoking Tobacco: Never Alcohol Use Standard Drinks/Week Comments No 0 (1 standard drink = 0.6 oz pur e alcohol) Area Deprivation Index Answer Date Soy rded National Score (1-100), lowe r number is lower risk 82 11/23/2023 State Score (1-10), lower number is lower risk 7 11/23/2023 Data from: https://www.neighborhoodatlas.[facility].edu/ . Last address used for calculation [address] [facility] 11/23/2023 Sex and Gender Information Value Date Recorded Sex Assigned at Not on file Legal Sex Male 12:04 PM EST Gender Identity Not on file Sexual Orientation Not on file Last Filed Vital Signs Vital Sign Reading Time Taken Comments Blood Pressure 109/79 10/28/2023 11:20 AM EST Pulse 73 10/28/2023 11:20 AM EST Temperature 36.9 C (98.4 F) 10/28/2023 11:20 AM EST Respiratory Rate 20 10/28/2023 11:20 AM EST Oxygen Saturation 93% 10/28/2023 11:20 AM EST Inhaled Oxygen Concentration - - Weight 124.7 kg (275 lb) 10/28/2023 8:48 AM EST Height 180.3 cm (5' 11 ) 10/24/2023 1:27 AM EST Body Mass Index 38.35 10/24/2023 1:27 AM EST Plan of Treatment Health Maintenance Due Date Last Done Comments Anxiety Screening 1977 Depression Screening 1977 Hepatitis C Screening 1978 DTaP,Tdap,Td Vaccine (1 - Tdap) 1978 CT Colonography 01/08/2004 Cologuard (FIT-DNA) 01/08/2004 Colonoscopy 01/08/2004 Colorectal Cancer Screening 01/08/2004 Fecal Occult Blood 01/08/2004 Prostate Cancer Screening Discussion 01/08/2004 Sigmoidoscopy 01/08/2004 Shingrix Vaccine (1 of 2) 2009 Pneumococcal Vaccine: 50+ (2 of 2 - PCV) 08/07/2019 08/07/2018, 08/07/2018, 11/24/2015 Advance Directive Discussion 08/21/2024 Influenza Vaccine (#1) 2025 , 06/17/2022, 07/20/2021, Additional history exists Diabetes Screening 10/26/2026 10/27/2023, 0 10/24/2023, 10/24/2023, Additional history exists Lipid Screening 10/24/2028 10/25/2023 RSV Vaccine (1 - 1-dose 75+ series) 2034 Procedures Procedure Name Priority Date/Time Associated Diagnosis Comments COMPREHENSIVE METABOLIC PANEL Routine 10/27/2023 5:18 AM EST LIPID PANEL, FASTING Routine 10/25/2023 6:27 AM EST from Last 3 Months or Most Recently Relevant to Health Maintenance Results * (ABNORMAL) COMP METABOLIC PANEL (10/27/2023 5:18 AM EST) Pathologist [facility] Protein, Total 6.3 6.3 - 8.0 g/dL 10/27/2023 6:05 AM EST [facility] Albumin 3.3(L) 3.9 - 4.9 g/dL 10/27/2023 6:05 AM [facility] Calcium, Total 9.1 8.5 - 10.2 mg/dL 10/27/2023 6:05 AM [facility] Bilirubin, Total 0.6 0.2 - 1.3 mg/dL 10/27/2023 6:05 AM EST [facility] Alkaline Phosphatase 88 38 - 113 U/L 10/27/2023 6:05 AM [facility] AST 11(L) 14 - 40 U/L 10/27/2023 6:05 AM [facility] ALT 11 10 - 54 U/L 10/27/2023 6:05 AM [facility] Glucose 145(H) 74 - 99 mg/dL 10/27/2023 6:05 AM [facility] Comment: The [place] Diabetes Association (ADA) provides guidance for cutoff values for fasting glucose and random glucose. The ADA defines fasting as no caloric intake for at least 8 hours. Fasting plasma glucose results between 100 to 125 mg/dL indicate increased risk for diabetes (prediabetes). Fasting plasma glucose results greater than or equal to 126 mg/dL meet the criteria for diagnosis of diabetes. In the absence of unequivocal hyperglycemia, results should be confirmed by repeat testing. In a patient with classic symptoms of hyperglycemia or hyperglycemic crisis, random plasma glucose results greater than or equal to 200 mg/dL meet the criteria for diagnosis of diabetes. Reference: Standards of Medical Care in Diabetes 2016, [place] Diabetes Association. Diabetes Care. 2016.39(Suppl 1). BUN 40(H) 9 - 24 mg/dL 10/27/2023 6:05 AM [facility] Creatinine 1.62(H) 0.73 - 1.22 mg/dL 10/27/2023 6:05 AM [facility] Sodium 144 136 - 144 mmol/L 10/27/2023 6:05 AM [facility] Potassium 4.1 3.7 - 5.1 mmol/L 10/27/2023 6:05 AM [facility] Chloride 100 97 - 105 mmol/L 10/27/2023 6:05 AM [facility] CO2 35(H) 22 - 30 mmol/L 10/27/2023 6:05 AM [facility] Anion Gap 9 9 - 18 mmol/L 10/27/2023 6:05 AM [facility] Estimated Glomerular Filtration Rate 47(L) >=60 mL/min/1. 73m 10/27/2023 6:05 AM [facility] Comment:Estimated Glomerular Filtration Rate (eGFR) is calculated using the 2020 CKD-EPI creatinine equation. This equation utilizes serum creatinine, sex, and age as parameters. The creatinine assay has traceable calibration to isotope dilution- mass spectrometry. Refer to KDIGO guidelines for clinical interpretation. In patients with unstable renal function, e.g. those with acute kidney injury, the eGFR may not accurately reflect actual GFR. Blood BLOOD SPECIMEN / Unknown Venipuncture / Unknown 10/27/2023 5:18 AM EST 10/27/2023 5:24 AM EST Juan Antonio Stewart MD LABORATORY Final Result Performing Organization Address City/State/[facility] Co de Phone Number [facility] [address] [place] [address], * LIPID PANEL BASIC (10/25/2023 6:27 AM EST) Pathologist [facility] Cholesterol, Total 104 <200 mg/dL 10/25/2023 9:13 AM [facility] Comment: <200 mg/dL, Desirable 200-239 mg/dL, Borderline high >239 mg/dL, High Triglyceride 52 <150 mg/dL 10/25/2023 9:13 AM [facility] Comment: <150 mg/dL, Normal 150-199 mg/dL, Borderline high 200-499 mg/dL, High >499 mg/dL, Very high HDL Cholesterol 61 >39 mg/dL 9:13 AM [facility] Comment: 40-59 mg/dL, Acceptable >59 mg/dL, High: Negative risk factor for coronary heart disease <40 mg/dL, Low: Positive risk factor for coronary heart disease Non HDL Cholesterol 43 <130 mg/dL 10/25/2023 9:13 AM [facility] Comment: <130 mg/dL, Optimal 130-159 mg/dL, Near optimal/above optimal 160-189 mg/dL, Borderline high 190-219 mg/dL, High >219 mg/dL, Very high Secondary prevention optimal non HDL Cholesterol levels are recommended to be <100 mg/dL Fasting Time 12 hrs 10/25/2023 9:13 AM [facility] VLDL Cholesterol 10 <30 mg/dL 10/25/19 24 9:13 AM [facility] TC:HDL Ratio 1.70 <5.10 10/25/2023 9:13 AM [facility] LDL Cholesterol, Calculated 33 <100 mg/dL 10/25/2023 9:13 AM [facility] Comment: <100 mg/dL, Optimal 100-129 mg/dL, Near optimal/above optimal 130-159 mg/dL, Borderline high 160-189 mg/dL, High >189 mg/dL, Very high Secondary prevention optimal LDL Cholesterol levels are recommended to be < 70 mg/dL LDL:HDL Ratio 0.54 <2.54 10/25/2023 9:13 AM [facility] Comment: Reference: 1. National Cholesterol Education Program ATP III Guideline At-A-Glance Quick Desk Reference: National Heart, Lung, and Blood [place]. National Institutes of Health. 2001: NIH Publication No. 01-3305. 2. An International Atherosclerosis Society position paper: global recommendations for the management of dyslipidemia: executive summary, Atherosclerosis. 2014: 232(2):410-413. Blood BLOOD SPECIMEN / Unknown Venipuncture / Unknown 10/25/2023 6:27 AM EST 10/25/2023 6:40 AM EST us Ashley Knowles APRN.[facility] Final Re sult [facility] [address] [place] [address], from Last 3 Months or Most Recently Relevant to Health Maintenance Insurance * Guarantor: Oliverio Woodward Account Type Relation to Patient Date of Phone Billing Address Personal/Family Self 1960 [address] [facility] [address] [place] [address] MEDICARE Care Teams Director Critical Care Relationship Specialty Start Date End Date Mounika Brooke MD [address] [place] [address] PCP - General Family Medicine 10/23/23 [place] [address] [address] [place] [address] Physician Nephrology 10/31/23
--- OUTSIDE RECORDS SUMMARY | 2025-04-14 14:28 | XMS_ITS | Encounter Summary ---
Author Organization [facility] Address [address] [place] [address] Phone Care Team Providers Care Net Sql Developer Name Role Phone Mounika Brooke MD Primary Care Provider [phone] Encounter Details Date Type Department Care Team (Late st Contact Info) Description 10/07/2023 Scanned Document [facility] [address] [place] [id number] Scanning, Generic Provider Social History Tobacco Use Types Packs/Day Years Used Date Smoking Tobacco: Never Assessed Sex and Gender Information Value Date Recorded Sex Assigned at Not on file Legal Sex Male 8:32 PM EST Gender Identity Not on file Sexual Orientation Not on file documented as of this encounter Plan of Treatment Not on file documented as of this encounter Procedures Procedure Name Priority Date/Time Associated Diagnosis Comments ECHOCARDIOGRAM 10/07/2023 documented in this encounter Results * ECHOCARDIOGRAM (10/07/2023) Narrative 10/07/2023 Ordered by an unspecified provider. us Generic Provider Scanning CV ECHO PROCEDURES Fin al Result documented in this encounter Visit Diagnoses Not on filedocumented in this encounter Care Teams Net Sql Developer Relationship Specialty Start Date End Date Mounika Brooke MD [address] [place] [address] PCP - General Family Medicine 11/02/23 documented as of this encounter
--- OUTSIDE RECORDS SUMMARY | 2025-04-14 14:28 | XMS_ITS | Encounter Summary ---
Author Organization [facility] Address [address] [place] [address] Care Team Providers Care Cable Reeler Name Role Phone Mounika Brooke MD Primary Care Provider [phone] Jennifer Orta Unavailable [phone] Annette Vega RN Unavailable [phone] Janice Kevin Unavailable Encounter Details Date Type Department Care Team ([facility] Contact Info) Description 04/14/2025 Patient Outreach [facility] [address] [place] [phone] Janice Kevin LSW [address] [place] [address] Social History Tobacco Use Types Packs/Day Years [...] Recorded Patient Health Questionnaire-2 Score 1 12/04/2024 [facility] of Occupat ional Health - Occupational Stress [...] any time in the past 12 m [facility], were you homeless or living in a jail (including now)? No 04/11/2025 Sex and Gender Information Value Date Recorded Sex Assigned at Not on file Legal Sex Male 7:40 PM EDT Gender Identity Not on file Sexual Orientation Not on file documented as of this encounter Progress Notes * JACK Murphy - 04/14/2025 11:14 AM EDT Contacted [facility] [phone] to follow up on shipment status for pending power wheelchair order that was shipped out on 04/06. Notified that there is no update or tracking info yet but now 10-15 business days for item to arrive. Will continue to monitor and update pt as appropriate. documented in this encounter Plan of Treatment Upcoming Encounters Date Type Department Care Team (Late st Contact Info) Description 04/30/2025 11:10 AM EDT Office Visit [facility] [place] [facility] [address] [place] [address] Kayla Sweeney MD [address] [place] [address] documented as of this encounter Visit Diagnoses Diagnosis Type 2 diabetes mellitus with hyperglycemia, with long-term current use of insulin (HCC)- Primary Stage 3b chronic kidney disease ([facility]) documented in this encounter Care Teams Cable Reeler Relationship Specialty Start Date End Date Mounika Brooke MD [address] [place] [address] PCP - General Family Medicine 07/27/23 Jennifer Orta PA [address] [place] [address] Physician Grease Packer Family Medicine 06/24/24 Annette Vega, RN [address] [place] [address] Registered Nurse Family Medicine 04/09/25 Janice Kevin LSW [address] [place] [address] Set Off Blocker Family Medicine 04/10/25 documented as of this encounter
--- OUTSIDE RECORDS SUMMARY | 2025-04-14 14:28 | XMS_ITS | Encounter Summary ---
Author Organization [facility] Address [address] [place] [address] Care Team Providers Care Jtac Name Role Phone Mounika Brooke MD Primary Care Provider Jennifer Orta Unavailable [phone] Annette Vega RN Unavailable [phone] Janice Kevin Unavailable Encounter Details Date Type Department Care Team (Late Contact Info) Description 04/11/2025 Patient Outreach [facility] [address] [place] [address] Annette Vega, RN [address] [place] [address] Social History Tobacco Use Types Packs/Day Years [...] Recorded Patient Health Questionnaire-2 Score 1 12/04/2024 [facility] [place] [facility] - Occupational Stress [...] any time in the past 12 m [facility], were you homeless or living in a alf (including now)? No 04/11/2025 Sex and Gender Information Value Date Recorded Sex Assigned at Not on file Legal Sex Male 7:40 PM EDT Gender Identity Not on file Sexual Orientation Not on file documented as of this encounter Progress Notes * Annette Vega RN - 04/11/2025 3:09 PM EDT [facility] enrollment encounter. Pt finished 30 day monitor, s/p hospitalization [facility] [place] DX: severe hyperglycemia, acutehyperosmolar nonketotic hyperglycemia secondary to medication noncompliance with insulin, pseudohyponatremia He remains on HH at this time, Brittani Longo RN continues medication oversight along with wound care and oversight. Pt continues to go to [facility] for management of chronic wound. Unna boots applied. Pt reports he is still experiencing great amt of stress r/t his dtr having cancer, and she is currently hospitalized, adding to his concerns. Reports transportation issues at times due to financial strains. He denies need for [place] transit at this time, wishes to utilize other resources for gas money to transport himself. He has a strong tie to his mandaen community and they assist meeting his needs when able. He also reports his son helps him financially. Care goals reviewed and pt needs close monitoring of diabetes. Reports BS this am 103 But does often vary with higher or lower readings. Pt follows with endocrinology for diabetes management Medication management and oversight to ensure pt has all medications in home. Care plan printed and mailed. Contact information provided. Will contact pt monthly for monitors, aware to call if any needs arise. Verbalized understanding . * Annette Vega RN - 04/11/2025 3:09 PM EDT Images from the original note were not included. 04/11/2025 Oliverio Woodward 1960 [address] [facility] [place] [address] Problem: Med Adherence Goal: Consistently take medications as prescribed Intervention: Educate patient on frequency and refill details of meds Intervention: Discuss barriers to patient's medication routine and Problem: Diabetes Education Goal: Patient will have sufficient knowledge about diabetes Intervention: Educate the patient on the disease process of diabetes Intervention: Educate patient on signs and symptoms of high and low blood sugars and what to do in each situation documented in this encounter Plan of Treatment Upcoming Encounters Date Type Department Care Team (Late st Contact Info) Description 04/30/2025 11:10 AM EDT Office Visit [facility] [place] [facility] [address] [place] [address] Kayla Sweeney MD [address] [place] [address] documented as of this encounter Visit Diagnoses Diagnosis Type 2 diabetes mellitus with hyperglycemia, with long-term current use of insulin (HCC)- Primary Stage 3b chronic kidney disease (CMS-HCC) documented in this encounter Care Teams Jtac Relationship Specialty Start Date End Date Mounika Brooke MD [address] [place] [address] PCP - General Family Medicine 07/27/23 Jennifer Orta PA [address] [place] [address] Physician Ring Attacher Family Medicine 06/24/24 Annette Vega, RN [address] [place] [address] Registered Nurse Family Medicine 04/09/25 Janice Kevin LSW [address] [place] [address] Heel Cutter Family Medicine 04/10/25 documented as of this encounter
--- OUTSIDE RECORDS SUMMARY | 2025-04-14 14:28 | XMS_ITS | Encounter Summary ---
Author Organization [facility] Address [address] [place] [address] Care Team Providers Care Linux Support Engineer Name Role Phone Mounkia Brooke MD Primary Care Provider [phone] Jennifer Orta Unavailable [phone] Encounter Details Date Type Department Care Team (Late st Contact Info) Description 03/31/2025 Patient Outreach [facility] [address] [place] [phone] Annette Vega, RAFAEL [address] [place] [address] Social History Tobacco Use Types Packs/Day Years [...] Progress Notes * Annette Vega RN - 03/31/2025 2:16 PM EDT Weekly monitor,#3 s/p hospitalization [facility] discharge 03/07 DX: severe hyperglycemia, acute hyperosmolar nonketotic hyperglycemia secondary to medication noncompliance with insulin, pseudohyponatremia, Spoke with pt re: current status. Reports he is doing ok, he had his appt with wound clinic last week-[facility]. Pt reports they are managing his heel wound. He will return to clinic tomorrow and HH continues to visit. Reports someone did call him about his power chair, took some information over the phone and is awaiting a call for home visit. Denies any other needs at this time. Advised will call next week for another update. Flowsheet Row Patient Outreach from 03/31/2025 in [facility] with Annette Vega RN Week Number Call Week 3 Call Was patient contacted successfully? Yes Have you had any urgent care/ED/Hospital visits since discharge? No Any medication changes since last contact? Yes Is the patient taking all medications as directed? Yes Have you visited your PCP since discharge? Yes Have you visited your specialist since discharge? Yes Does patient have home health? yes What is the home health agency? [facility] Has home health visited the patient within 72 hours of discharge? Yes What is the patient's perception of their health status since discharge? Improving documented in this encounter Plan of Treatment Upcoming Encounters Date Type Department Care Team (Late st Contact Info) Description 04/30/2025 11:10 AM EDT [facility] [address] [place] [address] Kayla Sweeney MD [address] [place] [address] documented as of this encounter Visit Diagnoses Diagnosis Type 2 diabetes mellitus with hyperglycemia, with long-term current use of insulin (HCC)- Primary Stage 3b chronic kidney disease ([facility]-HCC) documented in this encounter Care Teams Linux Support Engineer Relationship Specialty Start Date End Date Mounika Brooke MD [address] [place] [address] PCP - General Family Medicine 07/27/23 Jennifer Orta PA [address] [place] [address] Physician Hardening Machine Operator Helper Family Medicine 06/24/24 documented as of this encounter
--- OUTSIDE RECORDS SUMMARY | 2025-04-14 14:28 | XMS_ITS | Encounter Summary ---
Author Organization [facility] Address [address] [place] [address] Care Team Providers Care Java Core Developer Name Role Phone Migue Stroud MD Primary Care Provider Mounika Brooke MD Primary Care Provider [phone] Deann Calles LPN Unavailable Mounika Brooke MD Unavailable [phone] Jennifer Orta Unavailable Mounika Brooke MD Unavailable Janice Kevin RECORD MAKER Unavailable Annette Vega RN Unavailable Janice Kevin RECORD MAKER Unavailable Encounter Details Date Type Department Care Team (Latest Contact Info) Description 05/17/2023 Abstract [facility] Sukh Harrington, DPM FACFAS [address] [place] [address] Social History Tobacco Use Types Packs/Day Years [...] EDT Office Visit [facility] [place] [facility] [address] [place] [address] Kayla Sweeney MD [address] [place] [address] documented as of this encounter Visit Diagnoses Not on filedocumented in this encounter Care Teams Java Core Developer Relationship Specialty Start Date End Date Migue Stroud MD [address] [facility] [place] [address] PCP - General Family Medicine 04/03/23 07/26/23 Mounika Brooke MD [address] [place] [address] PCP - General Family Medicine 07/27/23 Mounika Brooke MD [address] [place] [address] PCP - [facility] 01/20/24 08/20/24 Mounika Brooke MD [address] [place] [address] PCP - [facility] 11/19/24 03/20/25 Deann Calles LPN [address] [place] [address] Licensed Practical Nurse Family Medicine 09/26/2302/27 Jennifer Orta PA [address] [place] [address] Physician Machine Coremaker Family Medicine 06/24/24 Janice Kevin LSW [address] [place] [address] Nursing Educator Family Medicine 12/04/24 12/10/24 Annette Vega, RAFAEL [address] [place] [address] Registered Nurse Family Medicine 04/09/25 Janice Kevin LSW [address] [place] [address] Nursing Educator Family Medicine 04/10/25 documented as of this encounter
--- OUTSIDE RECORDS SUMMARY | 2025-04-14 14:29 | XMS_ITS | Encounter Summary ---
Author Organization [facility] Address [address] [place] [address] Phone Care Team Providers Care Cans Vacuum Tester Name Role Phone Mounika Brooke MD Primary Care Provider [phone] Encounter Details Date Type Department Care Team (Late st Contact Info) Description 11/11/2023 Scanned Document [facility] [address] [place] [id number] Scanning, Generic Provider Social History Tobacco Use [...] Procedure Name Priority Date/Time Associated Diagnosis Comments OUTSIDE IMAGING SCAN 11/11/2023 documented in this encounter Results * OUTSIDE IMAGING SCAN (11/11/2023) Anatomical Region Laterality Modality Other Narrative 11/11/2023 Ordered by an unspecified provider. Generic Provider Scanning OUTSIDE SCAN Final Result documented in this encounter Visit Diagnoses Not on filedocumented in this encounter Care Teams Cans Vacuum Tester Relationship Specialty Start Date End Date Mounika Brooke MD [address] [place] [address] PCP - General Family Medicine 11/02/23 documented as of this encounter
--- OUTSIDE RECORDS SUMMARY | 2025-04-14 14:29 | XMS_ITS ---
Author Organization [facility] Care Team Providers Care Single Stroke Preformer Name Role Phone Berny Hinds Unavailable Unavailable Esau Mckenzie Unavailable Unavailable Wil Tavarez Unavailable Unavailable Allergies and adverse reactions Code CodeSystem Substance Reaction Severity StartDate Concern Status 7980 RXNORM Penicillin G Eruption (code- 156192055, SNOMED CT) Mild 11/17/2023 active Care Team Name Role Address Phone Organization Dates Itri A Guzman PCP [address] [place], [address], [place] (Office): : : : [facility] 11/17/2023 - 11/25/2023 Esau Mckenzie [place], [place] [facility] 11/17/2023 - 11/25/2023 Wil Tavarez [address] [place], [address], [place] (Office[place] : [facility] 11/17/2023 - 11/25/2023 Immunizations Immunization Status Vaccine Details Vaccine Code CodeSystem Date Notes TB 2 Step Mantoux Skin Test completed tuberculin skin test; unspecified formulation lotNumber: [id number] expiry: 12/18/2026 Given 0.1 ml Left Forearm intradermally Step 2 of Multi-step with next step required 98 CVX created date: 11/24/2023 consent date: 11/24/2023 administer ed date: 11/24/2023 resident left AMA 4-6-24 TB 2 Step Mantoux Skin Test completed tuberculin skin test; unspecified formulation lotNumber: [id number] expiry: 12/19/2023 Given 0.1 ml Left Forearm Step 1 of Multi-step with next step required 98 CVX created date: 11/20/2023 administer ed date: 11/17/2023 Medications Section Medication Name Status Code CodeSystem Dose Route Frequency Admin Type Sig Text Start Date End Date DULoxetine HCl Oral Capsule Delayed Release Particles 60 MG active 221846 RXNORM 60 mg Oral in the morning Routine Give 60 mg by mouth in the mornin g for DEPRES SHAY 2023 - Pantoprazole Sodium Oral Packet 40 MG active 355452 RXNORM 40 mg Oral in the morning Routine Give 40 mg by mouth in the mornin g relate d to OBESIT Y, UNSPEC IFIED (E66.9 ) 2023 - Budesonide Inhalation Suspension 0.5 MG/2ML active 290628 RXNORM 1 dose Inhalat ion two times a day Routine 1 dose inhale orally two times a day relate d to CHRONI C OBSTRU CTIVE PULMON ANDRE DISEAS E WITH (ACUTE ) EXACER BATION (J44.1 ) 2023 - Tamsulosin HCl Oral Capsule 0.4 MG active 116958 RXNORM 1 capsul e Oral in the morning Routine Give 1 capsul e by mouth in the mornin g relate d to OBESIT Y, UNSPEC IFIED (E66.9 ) 2023 - Atorvastatin Calcium Oral Tablet 40 MG active 266005 RXNORM 1 tablet Oral every senior application software engineer Routine Give 1 tablet by mouth every senior application software engineer relate d to CHRONI C OBSTRU CTIVE PULMON ANDRE DISEAS E WITH (ACUTE ) EXACER BATION (J44.1 ) 2023 - acetaZOLAMIDE Oral Tablet 250 MG active 985032 RXNORM 250 mg Oral two times a day Routine Give 250 mg by mouth two times a day relate d to EDEMA, UNSPEC IFIED (R60.9 ) 2023 - Ipratropium-A lbuterol Inhalation Solution 0.5-2.5 (3) MG/3ML active 7156431 RXNORM 1 dose Inhalat ion four times a day Routine 1 dose inhale orally four times a day relate d to CHRONI C OBSTRU CTIVE PULMON ANDRE DISEAS E WITH (ACUTE ) EXACER BATION (J44.1 ) 2023 - Melatonin Oral Tablet 5 MG active 775385 RXNORM 5 mg Oral at bedtime Routine Give 5 mg by mouth at bedtim e relate d to OBESIT Y, UNSPEC IFIED (E66.9 ) 2023 - guaiFENesin Oral Tablet active 1200 mg Oral two times a day Routine Give 1200 mg by mouth two times a day relate d to CHRONI C OBSTRU CTIVE PULMON ANDRE DISEAS E WITH (ACUTE ) EXACER BATION (J44.1 ) 2023 - Sennosides Oral Tablet 8.6 MG active 646451 RXNORM 1 tablet Oral two times a day Routine Give 1 tablet by mouth two times a day relate d to OBESIT Y, UNSPEC IFIED (E66.9 ) 2023 - Fluconazole Oral Tablet 200 MG active RXNORM 200 mg Oral in the morning Routine Give 200 mg by mouth in the mornin g for fungal infect ion 2023 - Jardiance Oral Tablet 10 MG active 9319767 RXNORM 10 mg Oral in the morning Routine Give 10 mg by mouth in the mornin g for DM 2023 - Gabapentin Oral Capsule 300 MG active 974347 RXNORM 1 capsul e Oral three times a day Routine Give 1 capsul e by mouth three times a day relate d to DIABET ES MELLIT US DUE TO UNDERL SANDY CONDIT ION WITH DIABET IC CATARA CT (E08.3 6) 2023 - Torsemide Oral Tablet 20 MG active 161552 RXNORM 40 mg Oral in the morning Routine Give 40 mg by mouth in the mornin g for Edema 2023 - rOPINIRole HCl Oral Tablet 1 MG active 769487 RXNORM 1 mg Oral at bedtime Routine Give 1 mg by mouth at bedtim e for restle ss leg syndro me 2023 - HumaLOG Injection Solution 100 UNIT/ML active 263415 RXNORM n/a n/a Subcuta neous before meals and at bedtime Routine Inject as per lucia everett scale: if 0 - 150 = 0 no insuli n; 151 - 200 = 2 units; 201 - 250 = 4 units; 251 - 300 = 6 units; 301 - 400 = 8 units, subcut aneous ly before meals and at bedtim e for DM 2023 - Jentadueto Oral Tablet 2.5-1000 MG active 0916932 RXNORM 1 tablet Oral in the morning Routine Give 1 tablet by mouth in the mornin g for DM 2023 - hydrALAZINE HCl Oral Tablet 10 MG active 981707 RXNORM 10 mg Oral two times a day Routine Give 10 mg by mouth two times a day relate d to EDEMA, UNSPEC IFIED (R60.9 ) 2023 - Mental Status Section Date Assessment Total Score Description 11/25/2023 BIMS 15 cognitively int act CAM 0 No delirium ind icated PHQ-9 00 11/19/2023 BIMS 15 cognitively int act CAM 0 No delirium ind icated PHQ-9 00 Problems Problem # Description Date of onset Resolved Date Code CodeSystem Concern Status 1 ACUTE DIASTOLIC (CONGESTIVE) HEART FAILURE [address] active 2 CHRONIC KIDNEY DISEASE, STAGE 3 [address]PECIFIED [address] active 3 CHRONIC OBSTRUCTIVE PULMONARY DISEASE WITH (ACUTE) EXACERBATION [address] active 4 DIABETES MELLITUS DUE TO UNDERLYING CONDITION WITH DIABETIC CATARACT [address] active 5 EDEMA, UNSPECIFIED [address] active 6 HEART FAILURE, UNSPECIFIED [address] active 7 [address]KALEM[address] active 8 MORBID (SEVERE) OBESITY DUE TO EXCESS CALORIES [address] active 9 MUSCLE WEAKNESS (GENERALIZED) [address] active 10 NEED FOR ASSISTANCE WITH PERSONAL CARE [address] active 11 OTHER RETENTION OF URINE [address] active 12 UNSPECIFIED INJURY OF UNSPECIFIED KIDNEY, SEQUELA [address] active 13 UNSPECIFIED LACK OF COORDINATION [address] active Reason for Referral No Reasons for Referral Entered Social History Social History Observation Description Start Date End Date Code Code System Current Smoking Status Tobacco smoking consumption unknown 131013096 SNOMED CT Sex Assigned At Male 1960 [address]-0 [facility] Gender Identity Male 81325058038404 [address] Vital Signs Code Code System Vitals Name Values and Units Timing Information 2339-0 [facility] Blood Sugar Value=1.0 Units=mg/dL 9279-1 [facility] Respiratory Rate Value=18.0 Units=/m in 11/25/2023 8462-4 [facility] Blood Pressure-Diastolic Value=84 Un its=mmHg 11/25/2023 8480-6 [facility] Blood Pressure-Systolic Ytqxj=613 Un its=mmHg 11/25/2023 8310-5 [facility] Body Temperature Value=98.1 Units= F 11/25/2023 8867-4 [facility] Heart rate Value=84.0 Units=/min 01/2024 30746-4 [facility] O2 % BldC Oximetry Value=94.0 Units= % 11/25/2023 94138-2 [facility] Pain Level Value=0.0 11/25/2023 86475-7 [facility] Weight Yrklm=296.0 Units=Lbs 09/2023 8302-2 [facility] Height Value=72.0 Units=Inches 11/18/2023
--- OUTSIDE RECORDS SUMMARY | 2025-04-14 14:29 | XMS_ITS ---
Author Organization [facility] Address [address] [place] [address] Care Team Providers Care Sports Specialist Name Role Phone Mounika Brooke MD Primary Care Provider [phone] Jennifer Orta Unavailable [phone] Annette Vega RN Unavailable [phone] Janice Kevin Unavailable Chronic Care Management (CCM) Status:Enrolled (Active) Start date:04/09/2025 Enrollment date:04/09/2025 Overview Please assess for Care Management needs. 04/09/25, 2:41 PM - Annette Vega RN- Patient gives verbal consent to be enrolled in CCM Program and understands there could be a bill for this service. Case Team Name Relationship Phone Annette Vega RN(Responsible Staff) Noemi Peterson [phone] Janice SANTIAGO Stator Tester [phone] Continued Care and Services Coordination
--- OUTSIDE RECORDS SUMMARY | 2025-04-14 14:29 | XMS_ITS ---
Author Organization [facility] Address [address] [place] [address] Care Team Providers Care Cook Fry Name Role Phone Mounika Brooke MD Primary Care Provider [phone] Jennifer Orta Unavailable [phone] Annette Vega RN Unavailable [phone] Janice Kevin FEEDER TENDER Unavailable 30 Day Monitoring Program Status:Closed (Closed) Start date:03/11/2025 Enrollment date:03/11/2025 Enrollment reason:Identified from transitional care managment End date:04/09/2025 Close reason:Actively enrolled in CCM Overview s/p [place] [facility] [place] DX: severe hyperglycemia, acute hyperosmolar nonketotic hyperglycemia secondary to medication noncompliance with insulin, pseudohyponatremia Continued Care and Services Coordination
--- OUTSIDE RECORDS SUMMARY | 2025-04-14 14:29 | XMS_ITS | Encounter Summary ---
Author Organization [facility] Address [address] [place] [address] Care Team Providers Care Rail Tractor Operator Name Role Phone Mounika Brooke MD Primary Care Provider Mounika Brooke MD Unavailable Jennifer Short Unavailable [phone] Mounika Brooke MD Unavailable [phone] Janice Kevin ADMINISTRATIVE PROCESSOR Unavailable Annette Vega RN Unavailable Janice Kevin ADMINISTRATIVE PROCESSOR Unavailable Encounter Details Date Type Department Care Team (Late st Contact Info) Description 06/21/2024 Clinisync Result Encounter [facility] External Department Unsolicited Jennifer Short, PA [address] [place], [place] [address] Social History Tobacco Use Types Packs/Day Years Used Date Smoking Tobacco: Never Smokeless Tobacco: Never Alcohol Use Standard Drinks/Week Comments Never 0 (1 standard drink = 0.6 oz pur e alcohol) caffeine 1-2 cups per day PHQ-2 Answer Date Recorded Patient Health Questionnaire-2 Score 3 04/29/2024 Sex and Gender Information Value Date Recorded Sex Assigned at Not on file Legal Sex Male 7:40 PM EDT Gender Identity Not on file Sexual Orientation Not on file documented as of this encounter Plan of Treatment Upcoming Encounters Date Type Department Care Team (Late Contact Info) Description 04/30/2025 11:10 AM EDT Office Visit [facility] [place] [facility] [address] [place] [address] Kayla Sweeney MD [address] [place] [address] documented as of this encounter Procedures Procedure Name Priority Date/Time Associated Diagnosis Comments XR CHEST 2 VIEWS 06/21/2024 2:46 PM EDT documented in this encounter Results * XR CHEST 2 VIEWS (06/21/2024 2:46 PM EDT) Anatomical Region Laterality Modality Other 06/21/2024 2:46 PM EDT Narrative 06/21/2024 4:53 PM EDT Exam Date/Time: 06/21/2024 14:55 EDT Reason for Exam: R05.3, R07.89 Report IMPRESSION: LEFT LOWER LOBE SUBSEGMENTAL ATELECTASIS/PNEUMONIA. CLINICAL INFORMATION: R05.3, R07.89 COMPARISON: 11/11/2023. FINDINGS: Osseous structures intact. Cardiopericardial silhouette normal. Pulmonary vasculature normal. Left diaphragm elevated, unchanged. Oblique band of increased opacity left lower lung. Right lung clear. Ordering Provider: Jennifer SHORT FINAL REPORT Dictated: 06/21/2024 4:50 pm Anibal Ocampo MD Signed (Electronic Signature): 06/21/2024 4:50 pm Signed by: Anibal Ocampo MD Transcribed by: KAT Technologist: PORSHA Technical Comments Radiation Dose: Ka,r in mGy = na DAP = na Procedure Note Radiology, Radiologist, - 06/21/2024 Exam Date/Time: 06/21/2024 14:55 EDT Reason for Exam: R05.3, R07.89 Report IMPRESSION: LEFT LOWER LOBE SUBSEGMENTAL ATELECTASIS/PNEUMONIA. CLINICAL INFORMATION: R05.3, R07.89 COMPARISON: 11/11/2023. FINDINGS: Osseous structures intact. Cardiopericardial silhouette normal.Pulmonary vasculature normal. Left diaphragm elevated, unchanged. Oblique band ofincreased opacity left lower lung. Right lung clear. Ordering Provider: Jennifer SHORT FINAL REPORT Dictated: 06/21/2024 4:50 pm SignAnibal treviño MD Signed (Electronic Signature): 06/21/2024 4:50 pm Signed by: Anibal Ocampo MD Transcribed by: KAT Technologist: PORSHA Technical Comments Radiation Dose: Ka,r in mGy = na DAP = na us Jennifer [facility] Final Res ult documented in this encounter Visit Diagnoses Not on filedocumented in this encounter Care Teams Rail Tractor Operator Relationship Specialty Start Date End Date Mounika Brooke MD [address] [place] [address] PCP - General Family Medicine 07/27/23 Mounika Brooke MD [address] [place] [address] PCP - [facility] 01/20/24 08/20/24 Mounika Brooke MD [address] [place] [address] [facility] 11/19/24 03/20/25 Jennifer Short PA [address] [place] [address] Physician Flush Tester Family Medicine 06/24/24 Janice Kevin LSW [address] [place] [address] Pet Crematory Worker Family Medicine 12/04/24 12/10/24 Annette Vega, RAFAEL [address] [place] [address] Registered Nurse Family Medicine 04/09/25 Janice Kevin LSW [address] [place] [address] Pet Crematory Worker Family Medicine 04/10/25 documented as of this encounter
--- OUTSIDE RECORDS SUMMARY | 2025-04-14 14:29 | XMS_ITS | Encounter Summary ---
Author Organization [facility] Address [address] [place] [address] Phone Care Team Providers Care Travel Clerk Name Role Phone Mounika Brooke MD Primary Care Provider [phone] Encounter Details Date Type Department Care Team (Late st Contact Info) Description 11/17/2023 Scanned Document [facility] [address] [place] [id number] Scanning, Generic Provider Social History Tobacco Use [...] on filedocumented in this encounter Care Teams Travel Clerk Relationship Specialty Start Date End Date Mounika Brooke MD [address] [place] [address] PCP - General Family Medicine 11/02/23 documented as of this encounter
--- OUTSIDE RECORDS SUMMARY | 2025-04-14 14:29 | XMS_ITS | Patient Health Record ---
Author Organization [facility] [place] Address [address] [place] [address] Care Team Providers Care Rejogger Name Role Phone Corey Vuong MD Primary Care Provider Harvey Kent [facility] [phone] Results Component Value Reference Range Notes XR foot LT min 3V (Not yet r eviewed by provider) Interpretation: Performing Lab: Notes/Report: Source Facility: [place] [address] XRay Report Signed Patient: Montrell Lora MR#: [id number] : 1960 Acct:[id number] Age/Sex: 64 / M ADM Date: 10/30/24 Loc: Attending Dr: Naldo Chakraborty Ordering Physician: Naldo Chakraborty Date of Service: 10/30/24 Procedure(s): XR foot LT min 3V Accession Number(s): [id number] cc: Naldo Chakraborty; Corey Vuong M.D. [place] [id number] Patient Name: MONTRELL LORA MRN: [id number] date: 1960 Sex: M Assigned Patient Location: Current Patient Location: Accession/Order Number: [id number] Exam Date: 10/30/2024 17:55 Report Date: 10/30/2024 17:57 At the request of: NALDO CHAKRABORTY Procedure: XR foot LT min 3V 3 views left foot plain film COMPARISON:None HISTORY: Left foot pain. Wound dorsal lateral forefoot and midfoot. ACUTE FINDINGS: No acute bony destructive changes. DEGENERATIVE CHANGE: A moderate degeneration. Posterior for calcaneal spurring. SOFT TISSUE FINDINGS: The distal soft tissue swelling. No subcutaneous air. No radiodense foreign body. JOINT EFFUSION: None POSTOP CHANGES: Transmetatarsal amputation BONE MINERALIZATION: Adequate XR/XR foot LT min 3V IMPRESSION: Transmetatarsal amputation. Diffuse soft tissue prominence. No subcutaneous air. No plain film findings of acute osteomyelitis. Degenerative changes and calcaneal spurring. Impression dictated by: Migue Wild M.D.10/30/2024 5:57 PM Dictation Location: [place] [address] Electronically authenticated by: [id number] Y Date: 10/30/2024 17:57 Dictated By: Migue Wild D.O. Signed By: 10/30/24 1800 DD/ 56 TD/TT: Hand Wood Sander: [place] [address] XRay Report Signed Patient: Montrell Lora MR #: [id number] : 1960 Acct:[id number] Age/Sex: 64 / M ADM Date: 10/30/24 Loc: Attending Dr: Naldo Chakraborty Ordering Physician: Naldo Chakraborty Date of Service: 10/30/24 Procedure(s): XR foot LT min 3V Accession Number(s): [id number] cc: Naldo Chakraborty; Corey Vuong M.D. [address] [address] Patient Name: MONTRELL LORA MRN: [id number] date: 1960 Sex: M Assigned Patient Location: Current Patient Location: Accession/Order Numb er: [id number] Exam Date: 10/30/2024 17:55 Report Date: 10/30/2024 17:57 At the request of: NALDO CHAKRABORTY Procedure: XR foot LT min 3V 3 views left foot plain film COMPARISON:None HISTORY: Left foot p ain. Wound dorsal lateral forefoot and midfoot. ACUTE FINDINGS: No a cute bony destructive changes. DEGENERATIVE CHANGE: A moderate degeneration. Posterior for calcaneal spurring. SOFT TISSUE FINDINGS : The distal soft tissue swelling. No subcutaneous air. No radiodense foreign body. JOINT EFFUSION: None POSTOP CHANGES: [place] smetatarsal amputation BONE MINERALIZATION: Adequate X R/XR foot LT min 3V IMPRESSION: Transmet atarsal amputation. Diffuse soft tissue prominence. No subcutaneous air. No plain film findings of acute osteomyelitis. Degenerative changes and calcaneal spurring. Impression dictated by: Migue Wild M.D.10/30/2024 5:57 PM Dictation Location: [place] [address] Electronically authe nticated by: [id number] Y Date: 10/30/2024 17:57 Dictated By: Migue Wild D.O. 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 [place] (PODIATRY) [address] [place] [address] [place] [address] 11/18/2024 Harvey Rose Plan Of Treatment Pending Test Test Name Order Date XR foot LT min 3V 10/30/2024
--- OUTSIDE RECORDS SUMMARY | 2025-04-14 14:36 | XMS_ITS | CCD ---
Author Organization [facility] Care Team Providers Care Information Support Project Manager Name Role Phone Migue STROUD Primary Care Physician Mounika Brooke Primary Care Physician Bowen Fan Unavailable Unavailable DO Reid Brooke. Primary Care Provider DO Art Kirby Emergency Provider DO Alban Chavez Admit Provider DO Alban Arrington Attending Provider MD Amrik De Guzman Other Provider MD Migue Stroud Primary Care Provider REID BROOKE Primary Care Physician Mounika Brooke MD Primary Care Provider MD Mounika Willoughby Primary Care Provider [phone] DO Jason Mercado Emergency Provider [phone] DO Tera Nevarez Admit Provider DO Tera Nevarez Attending Provider [phone] MD Hood Zacarias Other Provider MD Yesi Murphy Attending Provider [phone] PIPPA DONAHUE Consulting Unavailable TAY STEWART Admitting Unavailable TAY STEWART Attending Unavailable MOUNIKA BROOKE Primary Care Unavailable Mounika Brooke MD Primary Care Provider Gurmeet LYMAN, Naun Unavailable MD Mounika Brooke Primary Care Provider DO Jason Mercado M Emergency Provider DO Tera Nevarez Admit Provider [phone] MD Hood Zacarias Other Provider MD Yesi Murphy Attending Provider SOFIE Alexander Other Provider Unavailable MD Bladimir Story Other Provider MD Immanuel Pozo Other Provider [phone] MD Satnam Guevara Other Provider MD Gigi Cooper Other Provider MD Manish Fu Attending Provider Mendy LYMAN, Mounika Lugo Primary Care Provider Mendy LYMAN, Mounika Lugo Unavailable [phone] Marivel ROWAN, Jennifer Nunez Unavailable [phone] Smooth Harrington Attending Unavailable Dolce, Smooth Elizondo Attending Unavailable Hajdari, Astrit H Attending Unavailable COOK, Taz P Referring Unavailable COOK, Taz P Admitting Unavailable COOK, Taz P Attending Unavailable COOK, Taz P Attending Unavailable COOK, Taz P Referring Unavailable COOK, Taz P Admitting Unavailable COOK, Taz P Admitting Unavailable COOK, Taz P Attending Unavailable [facility] [place] XXXX Consulting Unavailable Moussawi, Ahmad Admitting Unavailable Moussawi, Jessd Attending Unavailable COOK, Taz P Attending Unavailable Nicole Myers Attending Unavailable OrzeGisselle farooq Attending Unavailable COOK, Taz P Attending Unavailable COOK, Taz P Attending Unavailable COOK, Taz P Attending Unavailable DARNELLLIBERTY WHEELER Attending Unavailable Shannon Lowery Attending Unavailable Nicole Thompson Attending Unavailable Dolce, Smooth Elizondo Attending Unavailable Dolce, Smooth Elizondo Attending Unavailable Dolce, Smooth Elizondo Attending Unavailable Dolce, Sukh Srinivasan Attending Unavailable Jose Miguel Phan Attending Unavailable Mone Martinez Attending Unavailable DO Staci Beck Attending Unavailable Hajdari, Astrit H Attending Unavailable Dolce, Sukh R Attending Unavailable COOKChristopherTaz P Attending Unavailable OrGisselle vasquez Attending Unavailable Taz THOMAS Attending Unavailable OrzechGisselle X Attending Unavailable OrzeGisselle farooq X Attending Unavailable Smooth Harrington Attending Unavailable DolSukh noel Attending Unavailable Sukh Harrington Attending Unavailable Nicole Myers Attending Unavailable Alejandro Silva Attending Unavailable Nicole Myers Attending Unavailable Jennifer SHORT Admitting Unavailable Jennifer SHORT Attending Unavailable Taz THOMAS Admitting Unavailable Taz THOMAS Attending Unavailable Mounika Brooke MD Primary Care Provider Mounika Brooke MD Unavailable [phone] Dorita SANTIAGO, Janice Unavailable Janice Garcia Unavailable Nicole Myers Attending Unavailable Corky Luo Attending Unavailable Toni Gutierrez. Attending Unavailable Toni Gutierrez Admitting Unavailable Nicole Myers Attending Unavailable Corky Luo Attending Unavailable Dwight Shaffer Attending Unavailable Dwight Shaffer Admitting Unavailable Mendy, Mounika Primary Care Unavailable Maria Luisa Steiner. Attending Unavailable Mendy, Mounika M Referring Unavailable Toni Gutierrez Attending Unavailable Toni Gutierrez Admitting Unavailable Gennari, Jigna Attending Unavailable Gennari, Jigna Admitting Unavailable NAHOMY Mbchapo Attending Unavailable Gennari, Jigna Admitting Unavailable MENDY, MOUNIKA M Attending Unavailable MENDY, MOUNIKA M Referring Unavailable MONE MCGUIRE Attending Unavailable MENDY, MOUNIKA M Attending Unavailable MENDY, MOUNIKA M Attending Unavailable MENDY, MOUNIKA M Attending Unavailable PERLITA MEEKS Attending Unavailable PERLITA MEEKS Attending Unavailable MENDY, MOUNIKA M Attending Unavailable PERLITA MEEKS Attending Unavailable JENNIFER SHORT Attending Unavailable JENNIFER SHORT Referring Unavailable MENDY, MOUNIKA M Attending Unavailable MENDY, MOUNIKA M Attending Unavailable GERALDINE, AHMAD F Referring Unavailable GERALDINE, AHMAD F Attending Unavailable PERLITA MEEKS M Attending Unavailable GERALDINE, AHMAD F Attending Unavailable Allergies Allergy Classification Reported Allergen(s) Allergy Type Date of Onset Reaction(s) Facility Penicillins (antibiotic) (4 sources) Penicillins; Translations: [penicillins] Drug Allergy Cutaneous eruption (morphologic abnormality) [facility] (20 sources) Penicillins; Translations: [penicillins] Drug allergy 5 Cutaneous eruption (morphologic abnormality), Rash [facility] (20 sources) penicillAMINE Drug Allergy 3 Unknown [facility] Medications Current Medications Medication Drug Class(es) Dates Sig (Normalized) Sig (Original) ##### (1 source) Start: 12-28-2021 ##### 100 EA, USE TO TEST THREE TIMES DAILY Start Date: 12/28/21 Status: Ordered acetaminophen 325 mg / HYDROcodone bitartrate 5 mg oral tablet (16 sources) Opioid Agonist Start: 11-20-2023 take 1 tablet by mouth every hour [place] 325 mg-5 mg oral tablet See Instructions, 1 tab(s), Refill(s) 0, Take 1 hour prior to your procedure, [facility] #[id number], 183, cm, 11/20/23 12:53:00 EDT, Height/Length Dosing, 143.5, kg, 11/11/23 9:09:00 EDT, Weight Dosing Start Date: 11/20/23 Status: Ordered acetaminophen 325 mg / oxyCODONE hydrochloride 5 mg oral tablet (20 sources) Opioid Agonist Start: 06-23-2024 oxyCODONE-acetami nophen (Percocet) 5-325 MG tablet 06/23/2024 Active Start: 06-23-2024 End: 07-12-2024 take 1 tablet by mouth every six hours as needed for pain oxyCODONE-acetaminophen (Percocet) 5-325 MG tablet TAKE 1 TABLET BY MOUTH EVERY 6 HOURS FOR 3 DAYS NEEDED FOR PAIN 06/23/2024 Active acetaminophen 325 mg / traMADol hydrochloride 37.5 mg oral tablet (16 sources) Opioid Agonist Start: 11-20-2023 Ultracet 325 mg-37.5 mg Tab See Instructions, 20 tab(s), Refill(s) 0, take 1-2 every 6 hrs prn for pain - following procedure, [facility] #[id number], 183, cm, 11/20/23 12:53:00 EDT, Height/Length Dosing, 143.5, kg, 11/11/23 9:09:00 EDT, Weight Dosing Start Date: 11/20/23 Status: Ordered acetaZOLAMIDE 250 mg oral tablet (1 source) Carbonic Anhydrase Inhibitor Start: 11-17-2023 take 250 mg by mouth twice daily Acetazolamide Active 250 MG PO Twice daily November 17, 2023 12:00am [id number] 200 actuat albuterol 0.09 mg/actuat metered dose inhaler (20 sources) beta2-Adrenergi c Agonist Start: 11-03-2022 take 2 puff(s) by inhalation every four hours albuterol HFA 90 mcg/act inhaler Inhale 2 puffs every 4 (four) hours if needed. 11/03/2022 Active Start: 04-04-2022 take 2.5 mg by inhal ation every four hours albuterol 0.083% Inh Harriet 3 mL 2.5 mg, 3 mL, Inhalation, q4hr Shortness of breath or wheezing, 30 EA, Refill(s) 5, [facility] #[id number], 182.9, cm, 03/29/22 13:07:00 EDT, Height/Length Dosing, 126.7, kg, 03/29/22 13:07:00 EDT, Weight Dosing Start Date: 04/04/22 Status: Ordered Quantity: 30.0 Unit: EA Repeat number: 6 Start: 03-08-2021 take 2.5 mg by inhal ation every four hours albuterol 0.083% Inh Harriet 3 mL 2.5 mg, 3 mL, Inhalation, q4hr Shortness of breath or wheezing, 30 EA, Refill(s) 2, [facility], 183, cm, 01/11/21 11:12:00 EDT, Height/Length Dosing, 145.1, kg, 12/23/20 19:46:00 EDT, Weight Dosing Start Date: 03/08/21 Status: Ordered Start: 03-08-2021 take 2.5 mg by inhal ation every four hours albuterol 0.083% Inh Harriet 3 mL 2.5 mg, 3 mL, Inhalation, q4hr Shortness of breath or wheezing, 30 EA, Refill(s) 2, [facility], 183, cm, 01/11/21 11:12:00 EDT, Height/Length Dosing, 145.1, kg, 12/23/20 19:46:00 EDT, Weight Dosing Start Date: 03/08/21 Status: Ordered Albuterol (Eqv-ProAir HFA) 90 mcg/inh inhalation aerosol (20 sources) Start: 05-08-2023 take 2 puff(s) by inhalation every six hours Albuterol (Eqv-ProAir HFA) 90 mcg/inh inhalation aerosol 2 puff(s), Inhalation, q6hr Wheezing, 18 gm, Refill(s) 11, [facility] #[id number], 182, cm, 05/08/23 10:15:00 EDT, Height/Length Dosing, 137, kg, 05/08/23 10:15:00 EDT, Weight Dosing Start Date: 05/08/23 Status: Ordered Quantity: 18.0 Unit: g Repeat number: 12 Start: 05-08-2023 take 2 puff(s) by in halation every six hours Albuterol (Eqv-ProAir HFA) 90 mcg/inh inhalation aerosol 2 puff(s), Inhalation, q6hr Wheezing, 18 gm, Refill(s) 11, [facility] #[id number], 182, cm, 05/08/23 10:15:00 EDT, Height/Length Dosing, 137, kg, 05/08/23 10:15:00 EDT, Weight Dosing Start Date: 05/08/23 Status: Ordered Start: 05-08-2023 End: 05-02-2024 take 2 puff(s) by inhalation every six hours Albuterol (Eqv-ProAir HFA) 90 mcg/inh inhalation aerosol 2 puff(s), Inhalation, q6hr Wheezing for 30 day(s), 18 gm, Refill(s) 11, [facility] #[id number], 182, cm, 05/08/23 10:15:00 EDT, Height/Length Dosing, 137, kg, 05/08/23 10:15:00 EDT, Weight Dosing Start Date: 05/08/23 Stop Date: 05/02/24 Status: Ordered albuterol 0.833 mg/ml / ipratropium bromide 0.167 mg/ml inhalation solution (1 source) Anticholinergic, beta2-Adrenergic Agonist Start: 11-17-2023 take 1 mL by inhalation four times daily Ipratropium-Albuterol Active 3 ML INHALATION Four times daily - Respiratory 0 November 17, 2023 12:00am aspirin 81 mg oral tablet (8 sources) Platelet Aggregation Inhibitor, Nonsteroidal Anti-inflammatory Drug Start: 03-11-2019 take 1 tablet by mouth once daily aspirin 81 mg oral tablet 81 mg = 1 tab(s), Oral, Daily, # 30 tab(s), Refills(s) 0 Start Date: 03/11/19 Status: Ordered Comment on above: Take 81 mg by mouth once daily. atorvastatin 40 mg oral tablet (20 sources) HMG-CoA Reductase Inhibitor Start: 03-10-2022 take 1 tablet by mouth once daily in the morning atorvastatin 40 mg Tab 40 mg = 1 tab(s), Oral, qAM, # 30 tab(s), Refills(s) 0, [id number], 180, cm, 09/12/23 13:35:00 EST, Height/Length Dosing, 149.8, kg, 09/12/23 13:35:00 EST, Weight Dosing Start Date: 09/16/23 Status: Ordered Quantity: 30.0 Unit: tab(s) Repeat number: 1 Beet Root (20 sources) Start: 09-19-2022 Beet Root Beet Root, See Instructions, Take 1000mg daily Start Date: 09/19/22 Status: Ordered Blood Glucose Monitoring Suppl ([employer] Verio Flex System) w/Device kit (1 source) Start: 12-24-2024 Blood Glucose Monitoring Suppl ([employer] Verio Flex System) w/Device kit USE DIRECTED TO TEST BLOOD SUGAR 12/24/2024 Active 120 actuat budesonide 0.16 mg/actuat / formoterol fumarate 0.0045 mg/actuat metered dose inhaler (20 sources) Corticosteroid, beta2-Adrenergic Agonist Start: 06-19-2023 take 1 puff(s) by inhalation twice daily Budesonide-Formoterol (Symbicort) 160-4.5 mcg/actuation HFA aerosol inhaler Active 2 PUFF INHALATION Twice daily June 19, 2023 12:00am Start: 05-09-2023 take 2 puff(s) by in halation in the morning Symbicort 160-4.5 MCG/ACT inhaler Inhale 2 puffs in the morning and 2 puffs before bedtime. 05/09/2023 Active Start: 05-09-2023 budesonide-for moterol (SYMBICORT) 160-4.5 mcg/actuation inhaler Inhale 2 Puffs as instructed. 0 05/09/2023 Active Comment on above: Inhale 2 Puffs as in structed. cefdinir 300 mg oral capsule (1 source) Cephalosporin Antibacterial Start: 12-03-19 End: 12-13-19 take 1 capsule by mouth every twelve hours cefdinir 300 mg Cap 300 mg = 1 cap(s), Oral, q12hr, X 10 day(s), # 20 cap(s), Refills(s) 0, Pharmacy: [facility] #[id number], 183, cm, 12/02/24 12:47:00 EDT, Height/Length Dosing, 117.1, kg, 12/02/24 12:47:00 EDT, Weight Dosing Start Date: 12/02/24 Stop Date: 12/12/24 Status: Ordered Quantity: 20.0 Unit: cap(s) Repeat number: 1 cinnamon preparation 500 mg oral tablet (20 sources) Non-Standardized Food Allergenic Extract Start: 09-19-19 take 1 capsule by mouth once daily Cinnamon 500 mg oral capsule 500 mg = 1 cap(s), Oral, Daily, Refills(s) 0 Start Date: 09/19/22 Status: Ordered Continuous Blood Gluc Roving Department Supervisor (FreeStyle Sage 3 [place]) device (20 sources) Start: 09-25-19 Continuous Blood Gluc Roving Department Supervisor (FreeStyle Sage 3 [place]) device Indications: Type 2 diabetes mellitus with hyperglycemia, with long-term current use of insulin (HCC) , Long-term insulin use (HCC) 1 each continuously 1 each 09/25/2023 Active Start: 09-25-2023 Continuous Blo od Gluc Roving Department Supervisor (FreeStyle Sage 3 [place]) device Indications: Type 2 diabetes mellitus with hyperglycemia, with long-term current use of insulin (CMS/HCC) , Long-term insulin use (CMS/HCC) 1 each continuously 1 each 09/25/2023 Active Continuous Blood Gluc Sensor (FreeStyle Sage 3 Sensor) misc (20 sources) Start: 09-25-2023 Continuous Blo od Gluc Sensor (FreeStyle Sage 3 Sensor) [facility] Indications: Type 2 diabetes mellitus with hyperglycemia, with long-term current use of insulin (HCC) , Long-term insulin use (HCC) 1 each every 14 (fourteen) days 6 each 3 09/25/2023 Active Start: 09-25-2023 Continuous Blo od Gluc Sensor (FreeStyle Sage 3 Sensor) [facility] Indications: Type 2 diabetes mellitus with hyperglycemia, with long-term current use of insulin (CMS/HCC) , Long-term insulin use (CMS/HCC) 1 each every 14 (fourteen) days 6 each 3 09/25/2023 Active diazePAM 10 mg oral tablet (16 sources) Benzodiazepine Start: 11-20-2023 Valium 10 mg Tab See Instructions, Take 1 hr prior to procedure, # 1 tab(s), Refills(s) 0, Pharmacy: [facility] #[id number], 183, cm, 11/20/23 12:53:00 EDT, Height/Length Dosing, 143.5, kg, 11/11/23 9:09:00 EDT, Weight Dosing Start Date: 11/20/23 Status: Ordered DISABILITY PARKING PLACARD (1 source) Start: 10-01-2021 DISABILITY PARKING PLACARD DISABILITY PARKING PLACARD, See Instructions, 1 EA, 0, > Five Years, Supply Start Date: 10/01/21 Status: Ordered doxycycline hyclate 100 mg oral capsule (20 sources) Tetracycline-class Drug Start: 06-23-2024 End: 12-12-2024 take 1 capsule by mouth in the morning doxycycline (Vibramycin) 100 MG capsule Take 100 mg by mouth in the morning and 100 mg before bedtime. 06/23/2024 Active Start: 10-09-2023 doxycycline hy clate 100 mg Tab See Instructions, Start taking 3 days prior to procedure - twice a day x7 days, # 14 tab(s), Refills(s) 0, [id number], 183, cm, 11/20/23 12:53:00 EDT, Height/Length Dosing, 143.5, kg, 11/11/23 9:09:00 EDT, Weight Dosing Start Date: 11/20/23 Status: Ordered Quantity: 14.0 Unit: tab(s) Repeat number: 1 Start: 06-19-2023 End: 06-21-2023 take 100 mg by mouth twice daily Doxycycline Hyclate Discontinued 100 MG PO Twice daily June 19, 2023 12:00am June 21, 2023 1:50pm DULoxetine 60 mg delayed release oral capsule (20 sources) Serotonin and Norepinephrine Reuptake Inhibitor Start: 01-11-2022 End: 01-22-2026 take 1 capsule by mouth once daily DULoxetine (Cymbalta) [address] capsule Indications: Anxiousness Take 1 capsule (60 mg) by mouth Daily 90 capsule 3 01/22/2025 01/22/2026 Active DULoxetine 60 mg Cap-EC (3 sources) Start: 01-11-2022 take 1 capsule by mouth once daily DULoxetine 60 mg Cap-EC 60 mg = 1 cap(s), Oral, Daily, # 30 cap(s), Refills(s) 11, Pharmacy: [facility], 182, cm, 01/11/22 13:57:00 EDT, Height/Length Dosing, 130, kg, 01/11/22 13:57:00 EDT, Weight Dosing Start Date: 01/11/22 Status: Ordered Start: 12-03-2019 take 1 capsule by [facility] once daily DULoxetine 60 mg Cap-EC 60 mg = 1 cap(s), Oral, Daily, # 30 cap(s), Refills(s) 11, [facility]: [facility], 183, cm, 11/14/19 12:11:00 EDT, Height/Length Measured, 144.3, kg, 11/14/19 12:11:00 EDT, Weight Measured Start Date: 12/03/19 Status: Ordered empagliflozin 10 mg oral tablet (4 sources) Sodium-Glucose Cotransporter 2 Inhibitor Start: 10-28-2023 End: 01-26-2024 take 1 tablet by mouth once daily empagliflozin (JARDIANCE) 10 mg tablet Take 1 tablet by mouth once daily. 30 tablet 2 10/28/2023 01/26/2024 Active Comment on above: Take 1 tablet by [facility] once daily. Flax Seed Oil (20 sources) Start: 09-19-2022 Flax Seed Oil See Instructions, Refill(s) 0, Take 1000mg daily Start Date: 09/19/22 Status: Ordered fluconazole 200 mg oral tablet (1 source) Azole Antifungal Start: 11-17-2023 take 200 mg by mouth once daily Fluconazole Active 200 MG PO Daily 05 30November 17, 2023 12:00am Freestyle Sage 2 [place] (20 sources) Start: 09-16-2023 Freestyle Sage 2 [place] Freestyle Sage 2 [place], See Instructions, 1 EA, 0, Use daily with sensor, [facility] #[id number], Supply, 180, cm, 09/12/23 13:35:00 EST, Height/Length Dosing, 149.8, kg, 09/12/23 13:35:00 EST, Weight Dosing Start Date: 09/16/23 Status: Ordered Quantity: 1.0 Unit: EA Repeat number: 1 Start: 09-16-2023 Freestyle Libr e 2 [place] Freestyle Sage 2 [place], See Instructions, 1 EA, 0, Use daily with sensor, [facility] #[id number], Supply, 180, cm, 09/12/23 13:35:00 EST, Height/Length Dosing, 149.8, kg, 09/12/23 13:35:00 EST, Weight Dosing Start Date: 09/16/23 Status: Ordered Start: 05-22-2023 Freestyle Libr e 2 [place] Freestyle Sage 2 [place], See Instructions, 1 EA, 0, Use daily with sensor, [facility] #[id number], Supply, 182, cm, 05/22/23 13:30:00 EDT, Height/Length Dosing, 139.6, kg, 05/22/23 13:30:00 EDT, Weight Dosing Start Date: 05/22/23 Status: Ordered Freestyle Sage 2 Sensors (20 sources) Start: 09-16-2023 Freestyle Libr e 2 Sensors Freestyle Sage 2 Sensors, See Instructions, 2 EA, 3, Apply one q 14 days, [facility] #[id number], Supply, 180, cm, 09/12/23 13:35:00 EST, Height/Length Dosing, 149.8, kg, 09/12/23 13:35:00 EST, Weight Dosing Start Date: 09/16/23 Status: Ordered Quantity: 2.0 Unit: EA Repeat number: 4 Start: 09-16-2023 Freestyle Libr e 2 Sensors Freestyle Sage 2 Sensors, See Instructions, 2 EA, 3, Apply one q 14 days, [facility] #[id number], Supply, 180, cm, 09/12/23 13:35:00 EST, Height/Length Dosing, 149.8, kg, 09/12/23 13:35:00 EST, Weight Dosing Start Date: 09/16/23 Status: Ordered Start: 05-22-2023 Freestyle Libr e 2 Sensors Freestyle Sage 2 Sensors, See Instructions, 2 EA, 3, Apply one q 14 days, [facility] #[id number], Supply, 182, cm, 05/22/23 13:30:00 EDT, Height/Length Dosing, 139.6, kg, 05/22/23 13:30:00 EDT, Weight Dosing Start Date: 05/22/23 Status: Ordered furosemide 20 mg oral tablet (20 sources) Loop Diuretic Start: 09-16-2023 take 1 tablet by mouth once daily Lasix 40 mg Tab 40 mg = 1 tab(s), Oral, Daily, # 30 tab(s), Refills(s) 0, Pharmacy: [facility] #[id number], 180, cm, 09/12/23 13:35:00 EST, Height/Length Dosing, 149.8, kg, 09/12/23 13:35:00 EST, Weight Dosing Start Date: 09/16/23 Status: Ordered Quantity: 30.0 Unit: tab(s) Repeat number: 1 Start: 06-21-2023 furosemide (La six) 20 MG tablet Take 40 mg by mouth in the morning. and 20mg at night. 0 06/21/2023 Active Start: 06-21-2023 End: 10-12-2023 take 1 tablet by mouth once daily in the evening Lasix 20 mg Tab 20 mg = 1 tab(s), Oral, qPM, # 30 tab(s), Refills(s) 0, [id number], 180, cm, 09/12/23 13:35:00 EST, Height/Length Dosing, 149.8, kg, 09/12/23 13:35:00 EST, Weight Dosing Start Date: 09/16/23 Status: Ordered Quantity: 30.0 Unit: tab(s) Repeat number: 1 gabapentin 600 mg oral tablet (20 sources) Anti-epileptic Agent Start: 11-17-2023 take 300 mg by mouth three times daily Gabapentin Active 300 MG PO Three times daily November 17, 2023 3:05pm Start: 01-11-2022 End: 04-24-2025 take 1 tablet by mouth in the morning, then take 1 tablet by mouth in the evening, then take 1 tablet by mouth at bedtime gabapentin (Neurontin) 600 MG tablet Indications: Type 2 diabetes mellitus with hyperglycemia, with long-term current use of insulin (HCC) Take 1 tablet (600 mg) by mouth in the morning and 1 tablet (600 mg) in the evening and 1 tablet (600 mg) before bedtime. 90 tablet 3 12/25/2024 04/24/2025 Active Start: 10-01-2021 take 1 tablet by ricco twice daily gabapentin 600 mg Tab 600 mg = 1 tab(s), Oral, BID, 30 Day Supply, # 60 tab(s), Refills(s) 11, Pharmacy: [facility] #[id number], 182, cm, 10/01/21 10:14:00 EST, Height/Length Dosing, 131.2, kg, 10/01/21 10:14:00 EST, Weight Dosing Start Date: 10/01/21 Status: Ordered Comment on above: Take 600 mg by mouth three times a day. 12 hr guaiFENesin 600 mg extended release oral tablet (20 sources) Start: 11-17-2023 take 2 tablets by mouth twice daily, then take 1 tablet by mouth every twelve hours Guaifenesin (Mucinex) 600 mg Tablet Extended Release 12hr Active 1200 MG PO Twice daily 0 November 17, 2023 12:00am Start: 06-15-2023 take 2 tablets by mo [facility] twice daily guaiFENesin 600 mg ER Tab 1,200 mg = 2 tab(s), Oral, BID, # 14 tab(s), Refills(s) 0, Pharmacy: [facility] #[id number], 182, cm, 06/11/23 13:54:00 EDT, Height/Length Dosing, 139.6, kg, 06/11/23 13:54:00 EDT, Weight Dosing Start Date: 06/15/23 Status: Ordered Start: 06-15-2023 take 1 tablet by ricco th in the morning, then take 1 tablet by mouth every twelve hours at bedtime guaiFENesin (Mucinex) 600 MG 12 hr tablet Take 1,200 mg by mouth in the morning and 1,200 mg before bedtime. 06/15/2023 Active Comment on above: Take 1,200 mg by ricco th. hydrALAZINE hydrochloride 10 mg oral tablet (20 sources) Arteriolar Vasodilator Start: End: take 1 tablet by mouth every twelve hours for anxiety and anxiety hydrALAZINE (Apresoline) 10 MG tablet Indications: Anxiousness Take 1 tablet (10 mg) by mouth every 12 (twelve) hours 180 tablet 3 01/22/2025 01/22/2026 Active Start: 10-28-2023 End: 01-26-2024 take 1 tablet by mouth every twelve hours hydrALAZINE (APRESOLINE) 10 mg tablet Take 1 tablet by mouth every 12 hours. 60 tablet 2 10/28/2023 01/26/2024 Active Start: 10-12-2023 End: 11-13-2023 take 75 mg by mouth twice daily Hydralazine Discontinu ed 75 MG PO Twice daily 180 60 October 12, 2023 1:00am November 13, 2023 4:40pm Comment on above: Take 1 tablet by ricco th every 12 hours. hydroCHLOROthiazide 25 mg / lisinopril 20 mg oral tablet (20 sources) Thiazide Diuretic, Angiotensin Converting Enzyme Inhibitor Start: 06-21-20 take 1 tablet by mouth in the morning lisinopril-hyd roCHLOROthiazi de 20-25 MG tablet Take 1 tablet by mouth in the morning. 06/21/2023 Active Start: 06-21-2023 End: 10-06-2023 take 1 tablet by mouth once daily Lisinopril-Hydrochlorothiazide Discontin ued 1 TAB PO Daily June 21, 2023 12:00am October 06, 2023 10:46pm 3 ml insulin aspart, human 100 unt/ml pen injector (20 sources) Insulin Analog Start: 10-12-2023 NovoLOG FLEXPE N 100 UNIT/ML pen 03/07/2025 Active Start: 10-12-2023 FIASP FLEXTOUC H U-100 INSULIN 100 unit/mL (3 mL) pen inject PLUS ISS #2 (EXPECT DAILY DOSE OF 80 UNITS) 0 10/12/2023 Active Start: 09-13-2022 NovoLOG FlexPe n 100 units/mL injectable solution See Instructions, 250 tidac. Max 150 units a day, # 45 mL, Refills(s) 5, Pharmacy: [facility] #[id number], 182, cm, 09/13/22 13:17:00 EST, Height/Length Dosing, 140.8, kg, 09/13/22 13:17:00 EST, Weight Dosing Start Date: 09/13/22 Status: Ordered Quantity: 45.0 Unit: mL Repeat number: 6 Start: 03-29-2022 NovoLOG FlexPe n 100 units/mL injectable solution See Instructions, 250 tidac. Max 150 units a day, # 45 mL, Refills(s) 5, Pharmacy: [facility] #[id number], 182.9, cm, 03/29/22 13:07:00 EDT, Height/Length Dosing, 126.7, kg, 03/29/22 13:07:00 EDT... Start Date: 03/29/22 Status: Ordered Start: 10-01-2021 NovoLOG FlexPe n 100 units/mL injectable solution See Instructions, 250 tidac. Max 120 units a day, # 15 mL, Refills(s) 3, Pharmacy: [id number] SARI HORN, 182, cm, 10/01/21 10:14:00 EST, Height/Length Dosing, 131.2, kg, 10/01/21 10:... Start Date: 10/01/21 Status: Ordered NovoLOG FLEXPEN 100 UNIT/ML pen Inject 100 Units under the skin in the morning and 100 Units at noon and 100 Units in the evening. Inject with meals. 0 Active Comment on above: inject PLUS ISS #2 (EXPECT DAILY DOSE OF 80 UNITS) insulin detemir 100 unt/ml injectable solution (1 source) Insulin Analog Start: 12-29-19 inject 18 mL by subcutaneous injection once daily in the evening Levemir FlexTouch 100 units/mL subcutaneous solution 18 mL, inject 40 units subcutaneously every morning and 30 units every evening, Refills(s) 0 Start Date: 12/28/21 Status: Ordered 3 ml insulin glargine 100 unt/ml pen injector (20 sources) Insulin Analog Start: 03-07-20 25 inject 30 [IU] by subcutaneous injection in the morning Basaglar KwikPen 100 UNIT/ML pen Inject 30 Units under the skin in the morning and 30 Units before bedtime. 03/07/2025 Active Start: 06-21-2023 Insulin Glargi ne U-300 Conc (Toujeo Max U-300 Solostar) 300 unit/mL (3 mL) Insulin Pen Active 35 UNIT SUBCUT Twice daily 3 June 21, 2023 12:26pm Start: 06-19-2023 End: 06-21-2023 Insulin Glargine U-300 Conc (Toujeo Max U-300 Solostar) 300 unit/mL (3 mL) Insulin Pen Discontinued 40 UNIT SUBCUT Twice daily June 19, 2023 12:00am June 21, 2023 1:50pm Start: 09-13-2022 Toujeo Max Harriet oStar 300 units/mL subcutaneous solution 40 unit(s), SubCutaneous, BID, # 12 mL, Refills(s) 5, Pharmacy: [facility] #[id number], 182, cm, 09/13/22 13:17:00 EST, Height/Length Dosing, 140.8, kg, 09/13/22 13:17:00 EST, Weight Dosing Start Date: 09/13/22 Status: Ordered Quantity: 12.0 Unit: mL Repeat number: 6 Start: 03-29-2022 Toujeo Max Harriet oStar 300 units/mL subcutaneous solution 40 unit(s), SubCutaneous, BID, # 12 mL, Refills(s) 5, Pharmacy: [email or web address] #[id number], 182.9, cm, 03/29/22 13:07:00 EDT, Height/Length Dosing, 126.7, kg, 03/29/22 13:07:00 EDT, Weight Dosing Start Date: 03/29/22 Status: Ordered Start: 01-11-2022 inject 40 [IU] by shah bcutaneous injection in the morning, then inject 30 [IU] by subcutaneous injection in the evening Lantus Solostar Pen 100 units/mL subcutaneous solution See Instructions, 40 units AM, 30 units PM, # 30 mL, Refills(s) 11, [email or web address], 182, cm, 01/11/22 13:57:00 EDT, Height/Length Dosing, 130, kg, 01/11/22 13:57:00 EDT, Weight Dosing Start Date: 01/11/22 Status: Ordered Start: 01-11-2022 inject 40 [IU] by shah bcutaneous injection in the morning, then inject 30 [IU] by subcutaneous injection in the evening Lantus Solostar Pen 100 units/mL subcutaneous solution See Instructions, 40 units AM, 30 units PM, # 30 mL, Refills(s) 11, [facility]acy: [facility], 182, cm, 01/11/22 13:57:00 EDT, Height/Length Dosing, 130, kg, 01/11/22 13:57:00 EDT, Weight Dosing Start Date: 01/11/22 Status: Ordered Start: 07-27-2021 Lantus Solosta r Pen 100 units/mL subcutaneous solution 65 unit(s), SubCutaneous, Daily, Refills(s) 0 Start Date: 07/27/21 Status: Ordered End: 07-15-2024 inject 20 [IU] by subcutaneous injection in the morning insulin glargine (Toujeo Max SoloStar) 300 UNIT/ML injection Inject 20 Units under the skin in the morning and 20 Units before bedtime. 07/15/2024 Discontinued (Formulary change) Insulin Glargine U-300 Conc (Toujeo Solostar U-300 Insulin) 300 unit/mL (1.5 mL) insulin pen (2 sources) Start: 11-17-2023 Insulin Glargi ne U-300 Conc (Toujeo Solostar U-300 Insulin) 300 unit/mL (1.5 mL) insulin pen Active 35 UNIT SUBCUT Daily at bedtime 4.5 November 17, 2023 3:01pm Start: 11-13-2023 End: 11-17-2023 Insulin Glargine U-300 Conc (Toujeo Solostar U-300 Insulin) 300 unit/mL (1.5 mL) insulin pen Discontinued 50 UNIT SUBCUT Daily at bedtime November 13, 2023 12:00am November 17, 2023 3:02pm Insulin Lispro (Humalog U-100 Insulin) 100 unit/mL Solution (6 sources) Start: 06-19-2023 inject 1 dose by subcutaneous injection once before mealtime Insulin Lispro (Humalog U-100 Insulin) 100 unit/mL Solution Active 1 sliding scale dose SUBCUT 3x/Day before meals & bedtime June 19, 2023 12:00am Sliding scale Start: 06-19-2023 Insulin Lispro (Humalog U-100 Insulin) 100 unit/mL Solution Active 1 sliding scale dose SOLUTION June 18, 2023 11:00pm Sliding scale Start: 06-19-2023 Insulin Lispro (Humalog U-100 Insulin) 100 unit/mL Solution Active SOLUTION June 19, 2023 12:00am Sliding scale 3 ml insulin, regular, human 500 unt/ml pen injector (20 sources) Insulin Start: 12-21-2024 HumuLIN R Kwik Pen (Concentrated) human recombinant 500 units/mL subcutaneous solution See Instructions, inject 40 units under the skin in the morning, 40 in the evening and 20 at bedtime., # 6 mL, Refills(s) 1, Pharmacy: [facility] #[id number], 182, cm, 12/20/24 13:40:00 EDT, Height/Length Dosing, 118.4, kg, 12/20/24 13:40:00 EDT, Weight Dosing Start Date: 12/21/24 Status: Ordered Quantity: 6.0 Unit: mL Repeat number: 2 Indication: Type 2 diabetes mellitus with diabetic neuropathy, unspecified Start: 07-15-2024 End: 06-23-2025 inject 50 [IU] by subcutaneous injection in the morning, then inject 50 [IU] by subcutaneous injection in the evening, then inject 50 [IU] by subcutaneous injection at bedtime insulin regular (HumuLIN R U-500 KWIKPEN) 500 UNIT/ML CONCENTRATED injection Indications: Type 2 diabetes mellitus with hyperglycemia, with long-term current use of insulin (HCC) Inject 50 Units under the skin in the morning and 50 Units in the evening and 50 Units before bedtime. 27 mL 1 12/25/2024 06/23/2025 Active inject 15 [IU] by shah bcutaneous injection three times daily before mealtime insulin regular human (HUMULIN R) 100 unit/mL injection Inject 15 Units subcutaneously three times daily before meals. 0 Active Comment on above: Inject 15 Units subc utaneously three times daily before meals. isopropyl alcohol 0.7 ml/ml medicated pad (1 source) Start: 12-22-19 Alcohol Swabs (Alcohol Prep) 70 % pads USE TO TEST BLOOD SUGAR 3 TIMES PER DAY 12/21/2024 Active linagliptin 5 mg oral tablet (20 sources) Dipeptidyl Peptidase 4 Inhibitor Start: 09-04-19 End: 06-23-20 take 1 tablet by mouth once daily linaGLIPtin (Tradjenta) 5 MG tablet Indications: Type 2 diabetes mellitus with hyperglycemia, with long-term current use of insulin (HCC) Take 1 tablet (5 mg) by mouth Daily 90 tablet 1 12/25/2024 06/23/2025 Active linagliptin 2.5 mg / metFORMIN hydrochloride 1000 mg oral tablet (20 sources) Biguanide, Dipeptidyl Peptidase 4 Inhibitor Start: 10-12-19 take 2.5-1000 mg by mouth once daily Linagliptin-Metform in (Jentadueto) 2.5-1,000 mg tablet Active 1 TAB PO Daily October 12, 2023 1:53pm Start: 04-14-2023 End: 10-12-2023 Jentadueto 2.5 mg-1000 mg or al tablet 1 tab(s), Oral, BID, 180 tab(s), Refill(s) 4, [facility] #[id number], 182.9, cm, 12/02/22 10:56:00 EDT, Height/Length Dosing, 139.6, kg, 12/02/22 10:56:00 EDT, Weight Dosing Start Date: 04/14/23 Status: Ordered Quantity: 180.0 Unit: tab(s) Repeat number: 5 Start: 04-04-2022 Jentadueto 2.5 mg-1000 mg oral tablet 1 tab(s), Oral, BID, 180 tab(s), Refill(s) 4, [facility] #[id number], 182.9, cm, 03/29/22 13:07:00 EDT, Height/Length Dosing, 126.7, kg, 03/29/22 13:07:00 EDT, Weight Dosing Start Date: 04/04/22 Status: Ordered Start: 11-18-2021 take 1 tablet by ricco th twice daily Jentadueto 2.5 mg-1000 mg oral tablet 1 tab(s), Oral, BID, 180 tab(s), Refill(s) 4, [facility], 182, cm, 10/01/21 10:14:00 EST, Height/Length Dosing, 131.2, kg, 10/01/21 10:14:00 EST, Weight Dosing Start Date: 11/18/21 Status: Ordered take 1 tablet by ricco th in the morning Jentadueto 2.5-1000 MG tablet Take 1 tablet by mouth in the morning and 1 tablet before bedtime. 0 Active losartan potassium 50 mg oral tablet (20 sources) Angiotensin 2 Receptor Rashida Start: 12-21-2024 take 1 tablet by mouth once daily losartan 50 mg Tab 50 mg = 1 tab(s), Oral, Daily, # 30 tab(s), Refills(s) 1, Pharmacy: [facility] #[id number], 182, cm, 12/20/24 13:40:00 EDT, Height/Length Dosing, 118.4, kg, 12/20/24 13:40:00 EDT, Weight Dosing Start Date: 12/21/24 Status: Ordered Quantity: 30.0 Unit: tab(s) Repeat number: 2 Indication: Essential (primary) hypertension Start: 12-03-2024 take 1 tablet by ricco th once daily losartan (Cozaar) 100 MG tablet Indications: Type 2 diabetes mellitus with hyperglycemia, with long-term current use of insulin (HCC) Take 1 tablet (100 mg) by mouth Daily 100 tablet 1 12/03/2024 Active Start: 05-22-2023 take 1 tablet by ricco th in the morning losartan (Cozaar) 100 MG tablet Take 100 mg by mouth in the morning. 05/22/2023 Active Start: 03-29-2022 take 1 tablet by ricco th once daily losartan 100 mg Tab 100 mg = 1 tab(s), Oral, Daily, # 90 tab(s), Refills(s) 3, [facility]: [facility] #[id number], 182.9, cm, 03/29/22 13:07:00 EDT, Height/Length Dosing, 126.7, kg, 03/29/22 13:07:00 EDT, Weight Dosing Start Date: 03/29/22 Status: Ordered Start: 04-20-2021 take 1 tablet by ricco th once daily losartan 100 mg Tab 100 mg = 1 tab(s), Oral, Daily, # 90 tab(s), Refills(s) 3, [facility]acy: [facility], 183, cm, 04/20/21 11:36:00 EDT, Height/Length Dosing, 136, kg, 04/20/21 11:41:00 EDT, Weight Dosing Start Date: 04/20/21 Status: Ordered methocarbamol 750 mg oral tablet (1 source) Muscle Relaxant Start: 12-19-2024 End: 12-22-2024 take 1 tablet by mouth three times daily Robaxin-750 oral tablet 750 mg = 1 tab(s), Oral, TID, X 3 day(s), # 9 tab(s), Refills(s) 0, Pharmacy: [facility] #[id number], 183, cm, 12/19/24 10:26:00 EDT, Height/Length Dosing, 110.8, kg, 12/19/24 10:26:00 EDT, Weight Dosing Start Date: 12/19/24 Stop Date: 12/22/24 Status: Ordered Quantity: 9.0 Unit: tab(s) Repeat number: 1 methylPREDNISolone (20 sources) Corticosteroid Start: 06-21-2024 methylPREDNISolone (Medrol Dospak) 4 MG tablets Indications: Non-recurrent acute serous otitis media of right ear Follow schedule on package instructions 21 tablet 06/21/2024 Active Misc Prescription (11 sources) Start: 09-19-2022 Misc Prescription 0 Start Date: 09/19/22 Status: Ordered Misc. Devices (Cane) misc (20 sources) Start: 07-03-2024 Misc. Devices (Cane) misc Indications: Difficulty walking 1 each continuously 1 each 07/03/2024 Active NovoLOG FlexPen 100 units/mL injectable solution (2 sources) Start: 10-01-2021 NovoLOG FlexPen 100 units/mL injectable solution See Instructions, 250 tidac. Max 120 units a day, # 15 mL, Refills(s) 3, Pharmacy: [facility], 182, cm, 10/01/21 10:14:00 EST, Height/Length Dosing, 131.2, kg, 10/01/21 10:... Start Date: 10/01/21 Status: Ordered oxybutynin chloride 5 mg oral tablet (16 sources) Cholinergic Muscarinic Antagonist Start: 02-07-2024 take 1 tablet by mouth twice daily oxybutynin 5 mg Tab See Instructions, 1 tab(s) Oral bid after procedure, # 20 tab(s), Refills(s) 0, Pharmacy: [facility] #[id number], 180, cm, 01/15/24 16:27:00 EDT, Height/Length Dosing, 140, kg, 01/15/24 16:27:00 EDT, Weight Dosing Start Date: 02/07/24 Status: Ordered Start: 11-20-2023 take 1 tablet by ricco th twice daily oxybutynin 5 mg Tab See Instructions, 1 tab(s) Oral bid after procedure, # 10 tab(s), Refills(s) 0, Pharmacy: [facility] #[id number], 183, cm, 11/20/23 12:53:00 EDT, Height/Length Dosing, 143.5, kg, 11/11/23 9:09:00 EDT, Weight Dosing Start Date: 11/20/23 Status: Ordered pantoprazole 40 mg delayed release oral tablet (20 sources) Proton Pump Inhibitor Start: 04-20-2021 End: 12-04-2023 take 1 tablet by mouth once daily Protonix 40 mg Tab-DR 40 mg = 1 tab(s), Oral, Daily, # 30 tab(s), Refills(s) 6, Pharmacy: [facility] #[id number], 182, cm, 05/08/23 10:15:00 EDT, Height/Length Dosing, 137, kg, 05/08/23 10:15:00 EDT, Weight Dosing Start Date: 05/08/23 Status: Ordered Quantity: 30.0 Unit: tab(s) Repeat number: 7 Indication: Gastro-esophageal reflux disease without esophagitis Start: 04-20-2021 take 1 tablet by ricco th once daily Pantoprazole [address] Tab 40 mg = 1 tab(s), Oral, Daily, # 90 tab(s), Refills(s) 3, Pharmacy: [facility] SARI [facility], 183, cm, 04/20/21 11:36:00 EDT, Height/Length Dosing, 136, kg, 04/20/21 11:41:00 EDT, Weight Dosing Start Date: 04/20/21 Status: Ordered Comment on above: Take 40 mg by mouth once daily. potassium chloride 10 meq extended release oral capsule (20 sources) Start: 06-21-2023 End: 10-06-2023 potassium chloride ER (Micro-K) 10 MEQ ER capsule Take 10 mEq by mouth Daily 06/21/2023 Active rOPINIRole 2 mg oral tablet (20 sources) Nonergot Dopamine Agonist Start: 04-29-2024 End: 04-29-2025 take 1 tablet by mouth at bedtime rOPINIRole (Requip) 2 MG tablet Indications: RLS (restless legs syndrome) Take 1 tablet (2 mg) by mouth at bedtime 90 tablet 3 04/29/2024 04/29/2025 Active Start: 05-22-2023 End: 04-29-2024 take 1 tablet by mouth once daily in the evening ropinirole 1 mg Tab 1 mg = 1 tab(s), Oral, qPM, # 90 tab(s), Refills(s) 4, [facility]: [facility] #[id number], 182, cm, 05/22/23 13:30:00 EDT, Height/Length Dosing, 139.6, kg, 05/22/23 13:30:00 EDT, Weight Dosing Start Date: 05/22/23 Status: Ordered Quantity: 90.0 Unit: tab(s) Repeat number: 5 Start: 03-29-2022 take 1 tablet by ricco th once daily in the evening ropinirole 1 mg Tab 1 mg = 1 tab(s), Oral, qPM, # 90 tab(s), Refills(s) 4, [facility]: [facility] #[id number], 182.9, cm, 03/29/22 13:07:00 EDT, Height/Length Dosing, 126.7, kg, 03/29/22 13:07:00 EDT, Weight Dosing Start Date: 03/29/22 Status: Ordered Start: 04-20-2021 take 1 tablet by ricco th once daily in the evening ropinirole 1 mg Tab 1 mg = 1 tab(s), Oral, qPM, # 90 tab(s), Refills(s) 3, [facility]: [email or web address], 183, cm, 04/20/21 11:36:00 EDT, Height/Length Dosing, 136, kg, 04/20/21 11:41:00 EDT, Weight Dosing Start Date: 04/20/21 Status: Ordered Comment on above: Take 1 mg by mouth d aily at bedtime. Sennosides (Senna Laxative) 8.6 mg Tablet (1 source) Start: 4 take 1 tablet by mouth twice daily Sennosides (Senna Laxative) 8.6 mg Tablet Active 8.6 MG PO Twice daily 0 November 17, 2023 12:00am tamsulosin hydrochloride 0.4 mg oral capsule (20 sources) alpha-Adrenergic Rashida Start: End: 4 take 1 capsule by mouth once daily tamsulosin 0.4 mg Cap 0.4 mg = 1 cap(s), Oral, Daily, X 30 day(s), # 30 cap(s), Refills(s) 3, Pharmacy: [email or web address] #[id number], 181.8, cm, 09/26/23 9:01:00 EST, Height/Length Dosing, 136, kg, 09/26/23 9:01:00 EST, Weight Dosing Start Date: 10/02/23 Stop Date: 01/30/24 Status: Ordered Comment on above: Take 1 capsule by mo [facility] every afternoon. torsemide 20 mg oral tablet (20 sources) Loop Diuretic Start: 4 End: 4 take 3 tablets by mouth in the morning, then take 3 tablets by mouth in the evening, then take 3 tablets by mouth at bedtime torsemide (Demadex) 20 MG tablet Take 60 mg by mouth in the morning and 60 mg in the evening and 60 mg before bedtime. 10/12/2023 Active Start: 10-12-2023 take 40 mg by mouth once daily Torsemide Active 40 MG PO DAILY@0800 0 November 17, 2023 12:00am Comment on above: Take 3 tablets by mo ut two times a day. Toujeo SoloStar (20 sources) Start: 09-12-2023 inject 50 [IU] by subcutaneous injection at bedtime Toujeo SoloStar 50 unit(s), SubCutaneous, Bedtime, Refills(s) 0 Start Date: 09/12/23 Status: Ordered Repeat number: 1 Start: 09-12-2023 inject 50 [IU] by shah bcutaneous injection at bedtime Toujeo SoloStar 50 unit(s), SubCutaneous, Bedtime, Refills(s) 0 Start Date: 09/12/23 Status: Ordered Ventolin HFA 90 mcg/inh Aerosol (20 sources) Start: 06-17-2022 take 2 puff(s) by inhalation every four hours Ventolin HFA 90 mcg/inh Aerosol 2 puff(s), Inhalation, q4hr Shortness of breath or wheezing, 8.5 gm, Refill(s) 5, [facility] #[id number], 182.9, cm, 06/17/22 13:13:00 EDT, Height/Length Dosing, 131.5, kg, 06/17/22 13:13:00 EDT, Weight Dosing Start Date: 06/17/22 Status: Ordered Quantity: 8.5 Unit: g Repeat number: 6 Start: 06-17-2022 take 2 puff(s) by in halation every four hours Ventolin HFA 90 mcg/inh Aerosol 2 puff(s), Inhalation, q4hr Shortness of breath or wheezing, 8.5 gm, Refill(s) 5, [facility] #[id number], 182.9, cm, 06/17/22 13:13:00 EDT, Height/Length Dosing, 131.5, kg, 06/17/22 13:13:00 EDT, Weight Dosing Start Date: 06/17/22 Status: Ordered Vitamin D3 2000 intl units (20 sources) Start: 09-19-2022 Vitamin D3 200 0 intl units 50 mcg, Chewed, Daily, Refills(s) 0 Start Date: 09/19/22 Status: Ordered Zinc (20 sources) Start: 09-19-2022 Zinc 140 mg (a s elemental zinc 50 mg) oral tablet 140 mg = 1 tab(s), Oral, Daily, Refills(s) 0 Start Date: 09/19/22 Status: Ordered Completed/Discontinued Medications Medication Drug Class(es) Dates Sig (Normalized) Sig (Original) amLODIPine 10 mg oral tablet (20 sources) Dihydropyridine Calcium Channel Rashida Start: 05-22-2023 End: 06-21-2023 take 10 mg by mouth twice daily Amlodipine Discontinued 10 MG PO Twice daily June 19, 2023 12:00am June 21, 2023 1:50pm Start: 04-20-2021 End: 10-12-2023 take 10 mg by mouth once daily Amlodipine Discontinued 10 MG PO Daily October 06, 2023 1:00am October 12, 2023 1:55pm cephalexin 500 mg oral capsule (5 sources) Cephalosporin Antibacterial Start: 10-06-2023 End: 10-12-2023 take 500 mg by mouth four times daily Cephalexin Discontinued 500 MG PO Four times daily October 06, 2023 1:00am October 12, 2023 1:55pm Start: 09-24-2023 End: 09-29-2023 take 1 capsule by mouth every six hours Keflex 500 mg Cap 500 mg = 1 cap(s), Oral, q6hr, X 5 day(s), # 20 cap(s), Refills(s) 0, Pharmacy: [email or web address] #[id number], 180, cm, 09/24/23 20:13:00 EST, Height/Length Dosing, 141.4, kg, 09/24/23 20:13:00 EST, Weight Dosing Start Date: 09/24/23 Stop Date: 09/29/23 Status: Ordered Glucometer (20 sources) Start: 09-16-2023 Glucometer Glu cometer, See Instructions, 1 EA, 0, Dispense 1 Glucometer, [facility] #[id number], Supply, 180, cm, 09/12/23 13:35:00 EST, Height/Length Dosing, 149.8, kg, 09/12/23 13:35:00 EST, Weight Dosing Start Date: 09/16/23 Status: Ordered Quantity: 1.0 Unit: EA Repeat number: 1 Indication: Type 2 diabetes mellitus with diabetic neuropathy, unspecified Start: 09-16-2023 Glucometer Glu cometer, See Instructions, 1 EA, 0, Dispense 1 Glucometer, [facility] #[id number], Supply, 180, cm, 09/12/23 13:35:00 EST, Height/Length Dosing, 149.8, kg, 09/12/23 13:35:00 EST, Weight Dosing Start Date: 09/16/23 Status: Ordered Start: 11-03-2022 Glucometer Glu cometer, See Instructions, 1 EA, 0, Dispense 1 Glucometer, [email or web address] #[id number], Supply, 182, cm, 09/13/22 13:17:00 EST, Height/Length Dosing, 140.8, kg, 09/13/22 13:17:00 EST, Weight Dosing Start Date: 11/03/22 Status: Ordered Start: 10-28-2021 Glucometer Glu cometer, See Instructions, 1 EA, 0, Dispense 1 Glucometer, [facility] #[id number], Supply, 182, cm, 10/01/21 10:14:00 EST, Height/Length Dosing, 131.2, kg, 10/01/21 10:14:00 EST, Weight Dosing Start Date: 10/28/21 Status: Ordered Glucose (1 source) Start: 12-21-2024 Glucose Kit Gl ucose Kit, See Instructions, 1 EA, 0, Glucose meter. Include autolet, matching test strips, lancets, & alcohol wipes, #100 or as allowed by insurance; DX: E11.9, [facility] #[id number], Supply, 182, cm, 12/20/24 13:40:00 EDT, Height/Length Dosing, 118.4, kg, 12/20/24 13:40:00 EDT, Weight Dosing Start Date: 12/21/24 Status: Ordered Quantity: 1.0 Unit: EA Repeat number: 1 Indication: Hyperglycemia, unspecified Insulin Glargine U-300 Conc (Toujeo Max U-300 Solostar) 300 unit/mL (3 mL) Insulin Pen (5 sources) Start: 11-13-2023 End: 11-17-2023 inject 40 [IU] by subcutaneous injection twice daily, then inject 50 [IU] by subcutaneous injection once at bedtime Insulin Glargine U-300 Conc (Toujeo Max U-300 Solostar) 300 unit/mL (3 mL) Insulin Pen Discontinued 40 UNIT SUBCUT Twice daily November 13, 2023 12:00am November 17, 2023 3:02pm 40 units BID and 50 units q HS Start: 06-21-2023 End: 11-13-2023 Insulin Glargine U-300 Conc (Toujeo Max U-300 Solostar) 300 unit/mL (3 mL) Insulin Pen Discontinued 35 UNIT SUBCUT Twice daily June 21, 2023 12:26pm November 13, 2023 4:53pm Start: 06-21-2023 Insulin Glargi ne U-300 Conc (Toujeo Max U-300 Solostar) 300 unit/mL (3 mL) Insulin Pen Active 35 UNIT SUBCUT Twice daily June 21, 2023 11:26am INSULIN GLARGINE,HUM.REC.ANLOG (LANTUS SOLOSTAR SUBCUTANEOUS) (3 sources) inject 40 [IU] by subcutaneous injection once daily at bedtime INSULIN GLARGINE,HUM.REC.ANLOG (LANTUS SOLOSTAR SUBCUTANEOUS) Inject 40 Units subcutaneously daily at bedtime. 0 Active Comment on above: Inject 40 Units subc utaneously daily at bedtime. Insulin Lispro (2 sources) Insulin Analog Sta rt: 3 End : Insulin Lispro Sliding Scale 0-10 Unit(s), Injection-Insulin, SubCutaneous, Start date 06/15/23 7:30:00 AM EDT Start Date: 06/15/23 Stop Date: 06/15/23 Status: Completed Start: 06-12-2023 End: 06-12-2023 Insulin Lispro Sliding Scale 0-10 Unit(s), Injection-Insulin, SubCutaneous, Start date 06/12/23 4:30:00 PM EDT Start Date: 06/12/23 Stop Date: 06/12/23 Status: Completed magnesium oxide 200 mg oral tablet (20 sources) Start: 06-21-2023 End: 10-06-2023 take 200 mg by mouth once daily Magnesium Oxide Discontinued 200 MG PO Daily June 21, 2023 12:00am October 06, 2023 10:46pm Start: 09-19-2022 magnesium oxid e 165 mg, Chewed, Daily, Refills(s) 0 Start Date: 09/19/22 Status: Ordered predniSONE 10 mg oral tablet (18 sources) Start: 06-15-2023 End: 06-19-2023 take 10 mg by mouth once daily Prednisone Discontinued 10 MG PO Daily June 19, 2023 12:00am June 19, 2023 7:52pm 0.05 ml ranibizumab 6 mg/ml prefilled syringe (3 sources) Vascular Endothelial Growth Factor Inhibitor Start: 07-22-2024 End: 07-22-2024 0.3 mg, Intravitreal, Once PRN Procedure, Starting on Mon07/22/24 at 1504, For 1 dose Start: 05-22-2024 End: 05-22-2024 0.3 mg, Intravitreal, Once P filter press tender head, Starting on Mon05/22/24 at 1442, For 1 dose Start: 04-23-2024 End: 04-23-2024 0.3 mg, Intravitreal, Once P filter press tender head, Starting on Mon04/23/24 at 1106, For 1 dose Symbicort 160/4.5 inhalation aerosol with adapter (20 sources) Start: 05-08-2023 take 1 dose by inhalation twice daily Symbicort 160/4.5 inhalation aerosol with adapter 2 puff(s), Inhalation, BID, 1 EA, Refill(s) 6, [facility] #[id number], 182, cm, 05/08/23 10:15:00 EDT, Height/Length Dosing, 137, kg, 05/08/23 10:15:00 EDT, Weight Dosing Start Date: 05/08/23 Status: Ordered Quantity: 1.0 Unit: EA Repeat number: 7 Indication: Unspecified asthma, uncomplicated Start: 05-08-2023 take 1 dose by inhal ation twice daily Symbicort 160/4.5 inhalation aerosol with adapter 2 puff(s), Inhalation, BID, 1 EA, Refill(s) 6, [facility] #[id number], 182, cm, 05/08/23 10:15:00 EDT, Height/Length Dosing, 137, kg, 05/08/23 10:15:00 EDT, Weight Dosing Start Date: 05/08/23 Status: Ordered Start: 05-08-2023 End: 12-04-2023 take 1 dose by inhalation twice daily Symbicort 160/4.5 inhalation aerosol with adapter 2 puff(s), Inhalation, BID for 30 day(s), 1 EA, Refill(s) 6, [facility] #[id number], 182, cm, 05/08/23 10:15:00 EDT, Height/Length Dosing, 137, kg, 05/08/23 10:15:00 EDT, Weight Dosing Start Date: 05/08/23 Stop Date: 12/04/23 Status: Ordered tiZANidine 2 mg oral tablet (20 sources) Central alpha-2 Adrenergic Agonist Start: 10-06-2023 End: 10-12-2023 take 2 mg by mouth every eight hours Tizanidine Discontinued 2 MG PO Every 8 hours October 06, 2023 1:00am October 12, 2023 1:55pm Start: 09-12-2023 take 1 capsule by mo [facility] every eight hours as needed for pain Zanaflex 2 mg oral capsule 2 mg = 1 cap(s), Oral, q8hr, PRN Muscle pain, # 180 cap(s), Refills(s) 0 Start Date: 09/12/23 Status: Ordered Quantity: 180.0 Unit: cap(s) Repeat number: 1 Start: 07-27-2023 take 1 tablet by [facility] every eight hours for muscle spasms tiZANidine (Zanaflex) 2 MG tablet Indications: Right groin pain Take 1 tablet (2 mg) by mouth every 8 (eight) hours if needed for muscle spasms 90 tablet 0 07/27/2023 Active Problems Active Problems Problem Classification Problem Date Documented Date Episodic/Chronic Acute and unspecified renal failure (20 sources) Acute renal failure syndrome; Translations: [Acute kidney failure, unspecified] Onset: 10-18-2023 10-07-2023 Episodic Anxiety disorders (1 source) Anxiety; Translations: [Anxiety disorder, unspecified] 01-22-2025 Chronic Asthma (20 sources) Asthma; Translations: [Unspecified asthma, uncomplicated] Onset: 05-08-2023 06-03-2019 Chronic Chronic kidney disease (20 sources) Chronic kidney disease stage 3; Translations: [Chronic kidney disease stage 3B ] Onset: 09-13-2022 Resolved: 07-03-2023 10-24-2019 Chronic Chronic obstructive pulmonary disease and bronchiectasis (20 sources) Chronic obstructive lung disease; Translations: [Chronic obstructive pulmonary disease, unspecified] Onset: 11-11-2023 Resolved: 03-17-2025 10-06-2023 Chronic Chronic obstructive pulmonary disease and bronchiectasis (1 source) Bronchitis; Translations: [Bronchitis, not specified as acute or chronic] Onset: 12-02-2024 Episodic Complication of device; implant or graft (3 sources) Complication associated with genitourinary device; Translations: [Unspecified complication of genitourinary prosthetic device, implant and graft, initial encounter] Onset: 10-15-2023 Episodic Congestive heart failure; nonhypertensive (20 sources) Right ventricular failure; Translations: [Right heart failure, unspecified] Onset: 10-24-2023 06-20-2023 Chronic Diabetes mellitus with complications (20 sources) Hyperglycemia due to type 2 diabetes mellitus; Translations: [Macular edema and retinopathy due to type 2 diabetes mellitus] Onset: 01-11-2022 Resolved: 07-03-2023 10-01-2021 Chronic Comment on above: noted in 03/11/2021 Diabetic Eye Exam page 5. added per outpatient CDI policy. Diabetes mellitus without complication (3 sources) Hyperglycemia; Translations: [Hyperglycemia, unspecified] Onset: 12-02-2024 Episodic Disorders of lipid metabolism (20 sources) Hyperlipidemia; Translations: [Hyperlipidemia, unspecified] Onset: 06-12-2023 07-09-2020 Chronic Esophageal disorders (20 sources) Gastroesophageal reflux disease; Translations: [Gastroesophageal reflux disease without esophagitis] Onset: 03-29-2022 04-12-2019 Chronic Essential hypertension (20 sources) Hypertensive disorder; Translations: [Essential hypertension] Onset: 03-29-2022 07-09-2020 Chronic Fluid and electrolyte disorders (20 sources) Dehydration; Translations: [Dehydration] Onset: 08-04-2022 Episodic Headache; including migraine (3 sources) Headache 11-05-2019 Episodic Heart valve disorders (20 sources) Pulmonary valve disorder 09-12-2023 Chronic Hyperplasia of prostate (20 sources) Benign prostatic hypertrophy with outflow obstruction; Translations: [Benign prostatic hyperplasia with lower urinary tract symptoms] Onset: 10-18-2023 Chronic Hypertension with complications and secondary hypertension (8 sources) Hypertensive urgency ; Translations: [Hypertensive urgency] 06-20-2023 Chronic Immunizations and screening for infectious disease (5 sources) Vaccination given; Translations: [Encounter for immunization] Onset: 05-22-2023 Episodic Mood disorders (20 sources) Severe major depression 08-28-2019 Chronic Nutritional deficiencies (20 sources) Vitamin D deficiency; Translations: [Vitamin D deficiency, unspecified] Onset: 06-29-2024 06-29-2024 Chronic Osteoarthritis (20 sources) Osteoarthritis of knee; Translations: [Osteoarthritis of knee, unspecified] Onset: 06-13-2023 02-12-2019 Chronic Other aftercare (2 sources) Post-discharge follow-up; Translations: [Encounter for follow-up examination after completed treatment for conditions other than malignant neoplasm] 03-13-2025 Episodic Other bone disease and musculoskeletal deformities (20 sources) History of amputation of left foot; Translations: [Acquired absence of left foot] Onset: 06-13-2023 06-13-2023 Chronic Other bone disease and musculoskeletal deformities (2 sources) Amputated toe of right foot; Translations: [Acquired absence of other right toe(s)] Onset: 09-13-2022 Episodic Other circulatory disease (2 sources) Pulmonary congestion ; Translations: [Other specified symptoms and signs involving the circulatory and respiratory systems] 12-04-2024 Episodic Other connective tissue disease (1 source) Enthesopathy; Translations: [Enthesopathy, unspecified] Onset: 07-09-2024 Episodic Other connective tissue disease (4 sources) Other symptoms and signs involving the musculoskeletal system; Translations: [Other musculoskeletal symptoms referable to limbs] 12-04-2024 Episodic Other connective tissue disease (1 source) Spasm; Translations: [Other muscle spasm] Onset: 12-20-2024 Episodic Other connective tissue disease (4 sources) Cramp; Translations: [Cramp and spasm] 12-26-2024 Episodic Other connective tissue disease (1 source) Cramp and spasm; Translations: [Cramp and spasm] Onset: 12-22-2024 Episodic Other diseases of kidney and ureters (1 source) Acquired renal cyst without neoplastic change; Translations: [Cyst of kidney, acquired] Onset: 10-18-2023 Episodic Other diseases of kidney and ureters (20 sources) Cyst of kidney 10-18-2023 Episodic Other diseases of kidney and ureters (2 sources) Urinary tract obstruction; Translations: [Other obstructive and reflux uropathy] Onset: 11-20-2023 Episodic Other diseases of veins and lymphatics (20 sources) Lymphedema of bilateral lower limbs; Translations: [Lymphedema, not elsewhere classified] Onset: 06-13-2023 02-12-2019 Chronic Other diseases of veins and lymphatics (4 sources) Lymphedema; Translations: [Lymphedema, not elsewhere classified] 10-06-2023 Chronic Other diseases of veins and lymphatics (5 sources) Lymphedema, not elsewhere classified; Translations: [Other lymphedema] 10-06-2023 Chronic Other endocrine disorders (20 sources) Hormone level - finding 09-12-2023 Episodic Other hereditary and degenerative nervous system conditions (20 sources) Restless legs; Translations: [Restless legs syndrome] Onset: 03-29-2022 10-24-2019 Chronic Other lower respiratory disease (6 sources) Hypoxemia; Translations: [Hypoxemia] 06-18-2023 Episodic Other lower respiratory disease (2 sources) Hypoxemia; Translations: [Hypoxemia] 06-19-2023 Episodic Other lower respiratory disease (4 sources) Acute respiratory distress; Translations: [Acute respiratory distress] 10-06-2023 Episodic Other lower respiratory disease (4 sources) Acute respiratory distress; Translations: [Other pulmonary insufficiency, not elsewhere classified] 10-06-2023 Episodic Other lower respiratory disease (3 sources) Acute pulmonary edema; Translations: [Acute pulmonary edema] Onset: 10-26-2023 10-28-2023 Episodic Other lower respiratory disease (1 source) Abnormal breathing; Translations: [Other abnormalities of breathing] Onset: 11-11-2023 Episodic Other lower respiratory disease (2 sources) Cough; Translations: [Acute cough] 12-04-2024 Episodic Other male genital disorders (1 source) Disorder of penis; Translations: [Other specified disorders of penis] Onset: 09-17-2023 Chronic Other nervous system disorders (8 sources) Difficulty walking; Translations: [Difficulty in walking, not elsewhere classified] 07-03-2024 Chronic Other non-traumatic joint disorders (1 source) Pain in right hip joint; Translations: [Pain in right hip] Onset: 08-06-2023 Episodic Other non-traumatic joint disorders (1 source) Pain of left shoulder joint; Translations: [Pain in left shoulder] Onset: 07-09-2024 Episodic Other non-traumatic joint disorders (2 sources) Pain in right shoulder; Translations: [Pain in joint, shoulder region] 07-11-2024 Episodic Other nutritional; endocrine; and metabolic disorders (20 sources) Morbid obesity; Translations: [Morbid (severe) obesity due to excess calories] Onset: 01-11-2022 07-09-2020 Chronic Other nutritional; endocrine; and metabolic disorders (1 source) Obese class II; Translations: [Body mass index (BMI) 38.0-38.9, adult] Onset: 01-11-2022 Chronic Other nutritional; endocrine; and metabolic disorders (8 sources) Body mass index 30+ - obesity; Translations: [Body mass index (BMI) 35.0-35.9, adult] 01-11-2022 Chronic Other nutritional; endocrine; and metabolic disorders (20 sources) Alveolar hypoventilation; Translations: [Morbid (severe) obesity with alveolar hypoventilation] Onset: 04-29-2024 06-20-2023 Chronic Other nutritional; endocrine; and metabolic disorders (5 sources) Morbid (severe) obesity with alveolar hypoventilation; Translations: [Obesity hypoventilation syndrome] 06-21-2023 Chronic Other nutritional; endocrine; and metabolic disorders (2 sources) Severe obesity; Translations: [Class 2 severe obesity due to excess calories with serious comorbidity and body mass index (BMI) of 38.0 to 38.9 in adult ([facility])] 07-15-2024 Chronic Other nutritional; endocrine; and metabolic disorders (1 source) Obesity; Translations: [Obesity, unspecified] Onset: 12-20-2024 Chronic Other screening for suspected conditions (not mental disorders or infectious disease) (8 sources) Blood chemistry abnormal; Translations: [Other specified abnormal findings of blood chemistry] Onset: 06-11-2023 Episodic Otitis media and related conditions (2 sources) Acute non-suppurative otitis media - serous; Translations: [Acute serous otitis media, right ear] 06-21-2024 Episodic Pneumonia (except that caused by tuberculosis or sexually transmitted disease) (1 source) Pneumonia; Translations: [Pneumonia, unspecified organism] Onset: 06-23-2024 Episodic Residual codes; unclassified (20 sources) Obstructive sleep apnea syndrome; Translations: [Obstructive sleep apnea (adult) (pediatric)] Onset: 05-08-2023 Chronic Residual codes; unclassified (1 source) Obstructive sleep apnea (adult) (pediatric); Translations: [Obstructive sleep apnea (adult)(pediatric)] 06-21-2023 Chronic Residual codes; unclassified (2 sources) Refused procedure - parent's wish; Translations: [Procedure and treatment not carried out because of patient's decision for other reasons] Onset: 08-04-2022 Episodic Residual codes; unclassified (6 sources) Edema; Translations: [Edema, unspecified] 06-18-2023 Episodic Residual codes; unclassified (3 sources) Edema, unspecified; Translations: [Edema] 06-19-2023 Episodic Residual codes; unclassified (1 source) Localized edema; Translations: [Bilateral leg edema] Onset: 10-23-2023 Episodic Residual codes; unclassified (1 source) Presence of other specified devices; Translations: [Chronic indwelling Elliott catheter] Onset: 10-23-2023 Episodic Residual codes; unclassified (1 source) Device in situ; Translations: [Presence of other specified devices] Onset: 01-15-2024 Episodic Residual codes; unclassified (1 source) Noncompliance with medication regimen; Translations: [Patient's other noncompliance with medication regimen for other reason] Onset: 12-20-2024 Episodic Respiratory failure; insufficiency; arrest (adult) (20 sources) Acute on chronic hypoxemic and hypercapnic respiratory failure; Translations: [Acute and chronic respiratory failure with hypoxia] Onset: 09-12-2023 06-20-2023 Chronic Superficial injury; contusion (1 source) Contusion of left chest wall; Translations: [Contusion of left front wall of thorax, initial encounter] Onset: 06-23-2024 Episodic Unclassified (20 sources) Long-term current use of insulin 10-12-2020 Unclassified (20 sources) Procedure not done 10-12-2020 Unclassified (10 sources) Finding of sensation of bladder 02-28-2024 Urinary tract infections (2 sources) Urinary tract infectious disease; Translations: [Urinary tract infection, site not specified] Onset: 09-24-2023 Episodic Past or Other Problems Problem Classification Problem Date Documented Da te Episodic/Chronic Administrative/social admission (20 sources) Patient encounter status; Translations: [Persons encountering health services in other specified circumstances] Onset: 09-17-2023 Episodic Crushing injury or internal injury (1 source) Late effect of internal injury to intra-abdominal organs; Translations: [Unspecified injury of unspecified intra-abdominal organ, sequela] Onset: 11-17-2023 03-17-2025 Episodic Diabetes mellitus without complication (20 sources) Type 2 diabetes mellitus; Translations: [Diabetes mellitus] Onset: 06-11-2023 Resolved: 07-03-2023 10-12-2020 Chronic Comment on above: linked DM with HLD p er outpatient CDI policy. linked DM with CKD p er outpatient CDI policy. 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 added per outpatient CDI policy. Other connective tissue disease (20 sources) Cramp in lower limb; Translations: [Cramp and spasm] Onset: 06-13-2023 06-17-2022 Episodic Other connective tissue disease (1 source) Muscle weakness; Translations: [Muscle weakness (generalized)] Onset: 11-17-2023 03-17-2025 Episodic Other lower respiratory disease (20 sources) Chronic cough; Translations: [Chronic cough] Onset: 06-13-2023 03-25-2019 Episodic Other nervous system disorders (20 sources) Impairment of balance; Translations: [Other abnormalities of gait and mobility] Onset: 06-13-2023 06-13-2023 Episodic Other nervous system disorders (1 source) Coordination problem; Translations: [Unspecified lack of coordination] Onset: 11-17-2023 03-17-2025 Episodic Other non-traumatic joint disorders (20 sources) Knee joint effusion; Translations: [Effusion, unspecified knee] Onset: 06-13-2023 Resolved: 07-03-2023 07-03-2023 Episodic Other non-traumatic joint disorders (20 sources) Pain in right knee; Translations: [Pain in joint, lower leg] Onset: 06-13-2023 Resolved: 07-03-2023 07-03-2023 Episodic Other nutritional; endocrine; and metabolic disorders (20 sources) Body mass index 40+ - severely obese; Translations: [Body mass index (BMI) 40.0-44.9, adult] Onset: 09-13-2022 Resolved: 07-04-2024 02-03-2020 Chronic Respiratory failure; insufficiency; arrest (adult) (20 sources) Acute respiratory failure; Translations: [Acute respiratory failure with hypoxia] Onset: 06-12-2023 Resolved: 12-04-2023 Episodic Spondylosis; intervertebral disc disorders; other back problems (20 sources) Low back pain; Translations: [Low back pain] Onset: 06-13-2023 Resolved: 07-03-2023 08-27-2019 Episodic Unclassified (20 sources) Methicillin resistant Staphylococcus aureus (organism) Onset: 10-16-2013 10-21-2013 Comment on above: Left Foot Varicose veins of lower extremity (20 sources) Varicose veins of lower extremity; Translations: [Asymptomatic varicose veins of unspecified lower extremity] Onset: 06-13-2023 03-25-2019 Episodic Viral infection (1 source) Disease caused by 2019-nCoV; Translations: [COVID-19] Onset: 03-09-2022 Results Test Name Value Interpretation Reference Range [facility] Capillary Glucose POCon 02-18 Glucose [Mass/Vol] 228 mg/dL High 55-99 [facility] Comment on above: Result Comment: Thelma maxwell RN/ Performed By: #### 2 [id number] #### [facility] [address] [place] [address] Discharge Note-Nursingon Discharge Note-Nursing Discharge Note-Nursing NICOLE LORA :1960 Visit Date:03/05/2025 Inpatient Discharge Instructions Your Care Team Admitting Physician - Jigna Suarez MD Reason for Your Visit Unable to walk because of left leg pain Your Diagnosis Leg muscle spasm Type 2 diabetes mellitus with hyperosmolar nonketotic hyperglycemia Pseudohyponatremia CKD (chronic kidney disease) Hypertension Hyperlipidemia Chronic hypoxic respiratory failure TC (obstructive sleep apnea) Obesity Hyperglycemia Leg pain-swelling Medical problem - minor Tests Performed XR Chest Single View This Is Your Medications List Misc Prescription (Glucose Kit) Misc Prescription (Pen Needle 31G x 6mm) gabapentin (gabapentin 600 mg Tab) insulin glargine (Insulin Glargine Prefilled Pen 100 units/mL subcutaneous solution) insulin lispro (HumaLOG KwikPen 100 units/mL injectable solution) insulin regular (HumuLIN R KwikPen (Concentrated) human recombinant 500 units/mL subcutaneous solution) losartan (losartan 50 mg Tab) Procedure History Cataract extraction and insertion of intraocular lens (10/24/2017), Cataract extraction and insertion of intraocular lens (09/19/2017), Incision AND drainage (05/31/2017), Split-thickness skin graft (04/12/2017), surgical preparation of left foot ulceration for skin grafting with versajet and application of stravix skin graft to left foot ulcer (02/01/2017), left foot TMA with packing, partial closure (04/13/2015), delayed secondary closure of the left foot wound with VersaJet debridement as well as pulse lavage. excision of ulceration to the plantar left foot with single lobe rotation skin plasty flap for closure (04/10/2015), left transmetatarsal amputation with partial closure with iodoform gauze packing. incision and drainage of left infected foot with Pulsavac and pulse lavage (04/08/2015), aggressive wound debridement to right subfourth metatarsal head ulceration with Versa jet sharp debridement as well as application of Dermagraft (07/23/2014), left incision and drainage of foot abscess with wound cultures as well as partial fifth ray amputation with digit, left foot, with pulsed lavage (10/16/2013), Umbilical Hernia Repair. Discharge Vitals Temperature (Oral) 36.6 ???C Heart Rate (Monitored) 76 Respiratory Rate 18 Blood Pressure 132/80 What to do next Instructions From Your Doctor Event Name Event Result Discharge Activity Ambulate as tolerated, Activity as tolerated Discharge Diet(s) Calorie Controlled- 1800 Calorie Diet Pending Diagnostic Test Results None New Follow Up Appointments after Discharge Follow Up with Mounika Brooke When: 03/12/2025 02:20 PM EDT Comments: Keep scheduled appointment Where: [address] [place] [address]- Business (1) Medications What How Much When Why Instructions Next Dose New insulin glargine (Insulin Glargine Prefilled Pen 100 units/ mL subcutaneous solution) 30 Units Subcutaneous 2 times a day Type 2 diabetes mellitus with hyperosmolar nonketotic hyperglycemia Refills: 1 Pickup at [facility] #[id number] Tonight at 9:00 PM New insulin lispro (HumaLOG KwikPen 100 units/ mL injectable solution) See instructions Type 2 diabetes mellitus with hyperosmolar nonketotic hyperglycemia TID PRN AC MEALS 150- 200 2 units, 200-250 4 u, 251-300 6 u, 301-350 8 u, 351-400 10 u, > 401 call your PCP Pickup at [facility] #[id number] Today at lunch Changed insulin regular (HumuLIN R KwikPen (Concentrated) human recombinant 500 units/ mL subcutaneous solution) See instructions Diabetes mellitus with neuropathy inject 15 units TID AC MEALS Today at lunch Unchanged gabapentin (gabapentin 600 mg Tab) 1 Tablets By Mouth 3 times a day Today at 2:00 PM Unchanged losartan (losartan 50 mg Tab) 1 Tablets By Mouth Every day Hypertension Resume 03/08/2025 Unchanged Misc Prescription (Glucose Kit) See instructions Hyperglycemia Glucose meter. Include autolet, matching test strips, lancets, & alcohol wipes, #100 or as allowed by insurance; DX: E11.9 Unchanged Misc Prescription (Pen Needle 31G x 6mm) See instructions Hyperglycemia Pen Needle 31G x 6mm Pharmacy Information [facility] #[id number]: [address] [place] [id number] [phone] Test Results CBC BMP WBC: 6.9 E9/L (03/05/25 20:15:00) Glucose Lvl: 224 mg/dL High (03/06/25 05:10:00) RBC: 4.7 E12/L (03/05/25 20:15:00) BUN: 35 mg/dL High (03/06/25 05:10:00) HGB: 14.7 gm/dL (03/05/25 20:15:00) Creatinine: 1.6 mg/dL High (03/06/25 05:10:00) Hct: 44.1 % (03/05/25 20:15:00) BUN/Creat Ratio: 22 High (03/06/25 05:10:00) MCV: 93.8 fL (03/05/25 20:15:00) Sodium Lvl: 134 mmol/L Low (03/06/25 05:10:00) MCH: 31.2 pg (03/05/25 20:15:00) Potassium Lvl: 3.8 mmol/L (03/06/25 05:10:00) MCHC: 33.2 gm/dL (03/05/25 20:15:00) Chloride: 100 mmol/L Low (03/06/25 05:10:00) RDW: 12.9 % (03/05/25 20:15:00) CO2: 26 mmol/L (02/18 (more content not included)... Normal [facility] Inpatient Clinical Summaryon 03-07-2025 Inpatient Clinical Summary Inpatient Clinical Summary [address] [address] Clinical Summary Person Information: Name: NICOLE LORA Age: 65 Years : 1960 Sex: Male PCP: Mounika Brooke MD Marital Status: Phone: [phone] Race: White Ethnicity: Non- or Language: Palauan Visit Id: Visit Reason: Hyperglycemia; Medical problem - minor; Leg pain-swelling; LEG PAIN Speciality: Acuity: Enc Type: Inpatient Med Service: Medical Arrival: 03/05/2025 19:53:39 Discharge: Dispo Type: Admit to [facility] Address: [address] [id number] Provider Notes: Diagnosis: 1:Leg muscle spasm; 4:CKD (chronic kidney disease); 5:Hypertension; 6:Hyperlipidemia; 7:Chronic hypoxic respiratory failure; 8:TC (obstructive sleep apnea); 9:Obesity Problems Active History of UTI Feeling of incomplete bladder emptying At risk for falls Renal cyst AMY (acute kidney injury) BPH with urinary obstruction PVD (pulmonary valve disease) GERD (gastroesophageal reflux disease) T2DM (type 2 diabetes mellitus) Urinary retention Respiratory acidosis Elevated brain natriuretic peptide (BNP) level Chronic hypoxemic respiratory failure Acute on chronic respiratory failure with hypercapnia Diabetes mellitus with neuropathy Chronic GERD CKD (chronic kidney disease) Type 2 diabetes mellitus Asthma TC (obstructive sleep apnea) Acute hypoxemic respiratory failure Type 2 diabetes mellitus with stage 3 chronic kidney disease Cramps of lower extremity Onychomycosis Type 2 diabetes mellitus with hyperglycemia Type 2 diabetes mellitus with hyperlipidemia 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 mellitus Acquired absence of other right toe(s) Chronic kidney disease, stage 3b Type 2 diabetes mellitus with morbid obesity Colonoscopy refused Long-term insulin use Hypertension Morbid obesity Hyperlipidemia Restless leg syndrome Low back pain Asthma GERD - Gastro-esophageal reflux disease Varicose veins of lower extremity Chronic cough Smoking Status: Never Smoker Functional Status: Sensory Deficits: History of Falls: Mobility Assistance Prior to Admission: ADLs: Minimal assistance Current Level of Assistance for Self-Care/Mobility: Cognitive Status: Oriented x 3 Allergies penicillins () Measurements: Height: 182.88 cm Weight: 115.7 kg Blood Pressure: 109 mmHg / 70 mmHg BMI: 34.59 kg/m2 Procedures No Procedures Performed or Documented Immunizations No Immunizations Documented This Visit Final Med List: gabapentin (gabapentin 600 mg Tab) 1 Tablets By Mouth 3 times a day. insulin glargine (Insulin Glargine Prefilled Pen 100 units/mL subcutaneous solution) 30 Units Subcutaneous 2 times a day. Refills: 1. insulin lispro (HumaLOG KwikPen 100 units/mL injectable solution) TID PRN AC MEALS 150- 200 2 units, 200-250 4 u, 251-300 6 u, 301-350 8 u, 351-400 10 u, > 401 call your PCP. Refills: 0. insulin regular (HumuLIN R KwikPen (Concentrated) human recombinant 500 units/mL subcutaneous solution) inject 15 units TID AC MEALS. Refills: 1. losartan (losartan 50 mg Tab) 1 Tablets By Mouth every day. Refills: 1. Misc Prescription (Glucose Kit) Glucose meter. Include autolet, matching test strips, lancets, & alcohol wipes, #100 or as allowed by insurance; DX: E11.9. Refills: 0. Misc Prescription (Pen Needle 31G x 6mm) Pen Needle 31G x 6mm. Refills: 1. Care Team Members: Attending Physician: Jigna Suarez MD Consulting Physician: Referring Physician: Follow up: With: Address: When: Mounika Brooke [address] [place] [address] [facility] (3) Within 3 to 5 days Comments: Call for followup appointment Patient Education Information: Hyperglycemic Hyperosmolar State Normal [facility] Inpatient Patient Summaryon 03-07-2025 Inpatient Patient Summary Inpatient Patient Summary [address] [address] Patient Discharge Instructions PERSON INFORMATION Name: NICOLE LORA Date of : 1960 Current Date: 03/07/2025 08:44:23 PHYSICIANS Admitting Physician: Jigna Suarez MD Primary Care Physician: Mounika Brooke MD PCP Comment: Discharge Diagnosis: 1:Leg muscle spasm; 4:CKD (chronic kidney disease); 5:Hypertension; 6:Hyperlipidemia; 7:Chronic hypoxic respiratory failure; 8:TC (obstructive sleep apnea); 9:Obesity Condition at Discharge: Improved NICOLE LORA has been given the following list of follow-up instructions, prescriptions, and patient education materials: PATIENT FOLLOW-UP INFORMATION Diet: Calorie Controlled- 1800 Calorie Diet Discharge Activity: Ambulate as tolerated, Activity as tolerated Discharge Restrictions: Wound Care Instructions: Remove Your Dressing In Days Call Your Doctor For: IF UNABLE TO CONTACT YOUR PHYSICIAN AND YOU FEEL IT IS AN EMERGENCY, GO TO THE NEAREST EMERGENCY ROOM OR CALL 911 Home Treatment: Devices/Equipment: Blood glucose monitor, Oxygen, Walker Special Services: Additional Instructions: Primary Care Physician to provide the following pending test results: None Follow up: With: Address: When: Mounika Brooke [address] [place] [address] [facility] (5) Within 3 to 5 days Comments: Call for followup appointment In the event that this physician does not participate in your insurance network, please consult with your insurance company to find a nearby participating provider. Comment: GENO Ocasio JOHN A, have received the attached patient education materials/instruction s and have verbalized understanding: Patient Signature Date Clinican/Nurse Signature Date HERE ARE THE MEDICATION CHANGES THAT OCCURRED DURING YOUR HOSPITAL STAY New Medications [id number], [address] [facility], [place] [id number], [phone] insulin glargine (Insulin Glargine Prefilled Pen 100 units/mL subcutaneous solution) 30 Units Subcutaneous 2 times a day. Refills: 1. Last Dose: ____Next Dose: ____ insulin lispro (HumaLOG KwikPen 100 units/mL injectable solution) TID PRN AC MEALS 150- 200 2 units, 200-250 4 u, 251-300 6 u, 301-350 8 u, 351-400 10 u, > 401 call your PCP. Refills: 0. Last Dose: ____Next Dose: ____ Medications to Continue Taking That Have Changed Other Medications START: insulin regular (HumuLIN R KwikPen (Concentrated) human recombinant 500 units/mL subcutaneous solution) inject 15 units TID AC MEALS. Refills: 1. Last Dose: ____Next Dose: ____ STOP: insulin regular (HumuLIN R KwikPen (Concentrated) human recombinant 500 units/mL subcutaneous solution) inject 40 units under the skin in the morning, 40 in the evening and 20 at bedtime.. Refills: 1. Medications to Continue with No Changes Other Medications gabapentin (gabapentin 600 mg Tab) 1 Tablets By Mouth 3 times a day. Last Dose: ____Next Dose: ____ losartan (losartan 50 mg Tab) 1 Tablets By Mouth every day. Refills: 1. Last Dose: ____Next Dose: ____ Misc Prescription (Glucose Kit) Glucose meter. Include autolet, matching test strips, lancets, & alcohol wipes, #100 or as allowed by insurance; DX: E11.9. Refills: 0. Last Dose: ____Next Dose: ____ Misc Prescription (Pen Needle 31G x 6mm) Pen Needle 31G x 6mm. Refills: 1. Last Dose: ____Next Dose: ____ Comment: MEDICATION LIST PROVIDED FOR YOU IS A LIST OF YOUR CURRENT MEDICATIONS. PLEASE CARRY THIS WITH YOU AT ALL TIMES. gabapentin (gabapentin 600 mg Tab) 1 Tablets By Mouth 3 times a day. insulin glargine (Insulin Glargine Prefilled Pen 100 units/mL subcutaneous solution) 30 Units Subcutaneous 2 times a day. Refills: 1. insulin lispro (HumaLOG KwikPen 100 units/mL injectable solution) TID PRN AC MEALS 150- 200 2 units, 200-250 4 u, 251-300 6 u, 301-350 8 u, 351-400 10 u, > 401 call your PCP. Refills: 0. insulin regular (HumuLIN R KwikPen (Concentrated) human recombinant 500 units/mL subcutaneous solution) inject 15 units TID AC MEALS. Refills: 1. losartan (losartan 50 mg Tab) 1 Tablets By Mouth every day. Refills: 1. Misc Prescription (Glucose Kit) Glucose meter. Include autolet, matching test strips, lancets, & alcohol wipes, #100 or as allowed by insurance; DX: E11.9. Refills: 0. Misc Prescription (Pen Needle 31G x 6mm) Pen Needle 31G x 6mm. Refills: 1. Pharmacy Information: Abimael Banda Comment: PATIENT EDUCATION INFORMATION Instructions: Hyperglycemic Hyperosmolar State (more content not included)... Normal [facility] Interdisciplinary Note - Yimi e Manageron 03-07-2025 Interdisciplinary Note - Psychiatry Physician Interdisciplinary Note - Psychiatry Physician Patient is awake and alert in bed, previously rounded with Dr. Macario. Patient is from home independently, states with daughter 4 days per week who is disabled and has cancer. States trying to get motorized scooter approved by insurance and CRM contacted PCP office yesterday regarding this. Declines any HH or PM or further needs. Family will transport at [place]. Medicare rights reviewed and second copy provided. . PCP verified and insurance information reviewed and DME discussed. Contact information provided and white board updated. Normal [facility] Comment on above: Result Comment: Elec tronically Signed By: Darlyn HALL, Lolis\.samir\Date and Time Signed: 03/07/25 09:09 EDT Patient Education - Texton 0 03-07-2025 Patient Education - Text Patient Education - Text [facility] BMPon 03-06-2025 Anion gap [Moles/Vol] 12 mmol/L Normal -16 [facility] Comment on above: Performed By: #### 2 [id number] #### [facility] [address] [place] [address] BUN/Creat Ratio 22 No Units High 10-20 [facility] Comment on above: Performed By: #### 2 [id number] #### [facility] [address] [place] [address] Calcium [Mass/Vol] 8.4 mg/dL Low 8.9-11.1 [facility] Comment on above: Performed By: #### 2 [id number] #### [facility] [address] [place] [address] Chloride [Moles/Vol] 100 mmol/L Low 101-111 [facility] Comment on above: Result Comment: Delt a check verified Performed By: #### 2 [id number] #### [facility] [address] [place] [address] CO2 [Moles/Vol] 26 mmol/L Normal 21-31 [facility] Comment on above: Performed By: #### 2 [id number] #### [facility] [address] [place] [address] Creatinine [Mass/Vol] 1.6 mg/dL High 0.5-1.3 [facility] Comment on above: Result Comment: Delt a check verified Performed By: #### 2 [id number] #### [facility] [address] [place] [address] Glucose [Mass/Vol] 224 mg/dL High 55-199 [facility] Comment on above: Performed By: #### 2 [id number] #### [facility] [address] [facility] [place] [address] Potassium [Moles/Vol] 3.8 mmol/L Normal 3.5-5.3 [facility] Comment on above: Result Comment: Delt a check verified Performed By: #### 2 [id number] #### [facility] [address] [facility] [place] [address] Sodium [Moles/Vol] 134 mmol/L Low 135-145 [facility] Comment on above: Performed By: #### 2 [id number] #### [facility] [address] [place] [address] Urea nitrogen [Mass/Vol] 35 mg/dL High 5-21 [facility] Comment on above: Performed By: #### 2 [id number] #### [facility] [address] [place] [address] Capillary Glucose POCon 02-18 Glucose [Mass/Vol] 172 mg/dL High 55-99 [facility] Comment on above: Result Comment: Thelma maxwell RN/ Performed By: #### 2 [id number] #### [facility] [address] [place] [address] Glucose [Mass/Vol] 121 mg/dL High 55-99 [facility] Comment on above: Result Comment: Thelma maxwell RN/ Performed By: #### 2 [id number] #### [facility] [address] [place] [address] Glucose [Mass/Vol] 186 mg/dL [address] Comment on above: Performed By: #### 2 [id number] #### [facility] [address] [place] [address] Glucose [Mass/Vol] 225 mg/dL [address] Comment on above: Performed By: #### 2 [id number] #### [facility] [address] [place] [address] Glucose [Mass/Vol] 128 mg/dL [address] Comment on above: Performed By: #### 2 [id number] #### [facility] [address] [place] [address] Glucose [Mass/Vol] 168 mg/dL [address] Comment on above: Result Comment: Pricila elbert Meter Performed By: #### 2 [id number] #### [facility] [address] [place] [address] Glucose [Mass/Vol] 163 mg/dL [address] Comment on above: Result Comment: Pricila elbert Meter Performed By: #### 2 [id number] #### [facility] [address] [place] [address] Glucose [Mass/Vol] 229 mg/dL [address] Comment on above: Result Comment: Pricila elbert Meter Performed By: #### 2 [id number] #### [facility] [address] [place] [address] Glucose [Mass/Vol] 214 mg/dL [address] Comment on above: Result Comment: Pricila elbert Meter Performed By: #### 2 [id number] #### [facility] [address] [place] [address] Glucose [Mass/Vol] 241 mg/dL High 55-99 [facility] Comment on above: Result Comment: Pricila elbert Meter Performed By: #### 2 [id number] #### [facility] [address] [place] [address] Glucose [Mass/Vol] 322 mg/dL High 55-99 [facility] Comment on above: Result Comment: Pricila elbert Meter Performed By: #### 2 [id number] #### [facility] [address] [place] [address] Glucose [Mass/Vol] 384 mg/dL High 55-99 [facility] Comment on above: Result Comment: Pricila elbert Meter Performed By: #### 2 [id number] #### [facility] [address] [place] [address] Glucose [Mass/Vol] 440 mg/dL High 55-99 [facility] Comment on above: Result Comment: Pricila elbert Meter Performed By: #### 2 [id number] #### [facility] [address] [place] [address] ED Note-Physicianon 03-06-20 ED Note-Physician ED Note-Physician Basic Information Time Seen: Alejandro Silva M.D. 03/05/2025 20:02 Chief Complaint Unable to walk because of left leg pain History of Present Illness The patient is a 65-year-old male past medical history of chronic kidney disease, diabetes, asthma who presented to the emergency room via EMS for leg spasms. The patient states for past few days he has been having spasms of his left leg. The patient stated he has had this last year. The patient states the spasm is on the left thigh and points to the anterolateral aspect left thigh. The patient states the leg is cramping and moves on its own. He states the cramping happen every 30 seconds or so. The patient states that he has been drinking a lot of water. He states he did not take his insulin today because he could not get to the car because of the spasms on his leg. The patient denies any chest pain. He denies any shortness of breath. The patient denies any nausea, denies any vomiting. He denies any diarrhea. The patient denies any abdominal pain. He denies any burning with urination. The patient denies any other associated symptoms. Review of Systems Additional ROS info: Except as noted in the above Review of Systems and in the History of Present Illness all other systems have been reviewed and are negative or noncontributory. Physical Exam Vitals & Measurements T: 36.7 ???C(Oral) HR: 70(Monitored) RR: 18 BP: 163/76 SpO2: 96% HT: 182.88 cm WT: 115.7 kg BMI: 34.59 General: alert, no acute distress Skin: warm, dry Head: no trauma, normocephalic Neck: Trachea midline, no tenderness, supple Eye: normal conjunctiva, sclera clear, EOMI, vision unchanged ENMT: Oral mucosa moist, no pharyngeal erythema or exudate Cardiovascular: regular rate and rhythm Respiratory: Lungs CTA, respirations non labored, breath sounds equal Gastrointestinal: soft, non distended, no tenderness, no guarding Extremities: no deformity, no trauma, bilateral pedal edema. Spasms of the left thigh with involuntary movement. Neurological: Alert and oriented, speech normal, no focal neuro deficits Psychiatric: cooperative, affect appropriate for age Medical Decision Making MEDICAL DECISION MAKING Number and Complexity of Problems Differential Diagnosis: [] [facility] Data External documents reviewed: [] My EKG interpretation: [] My CT interpretation: [] My X-ray interpretation: [] My Ultrasound interpretation: [] Decision rules/scores evaluated: [] Discussed with: Hospitalist Treatment and Disposition ED Course: The patient presented with muscle spasms/cramps on the left leg. The patient states that he has been drinking a lot of water. He was found to be on hyperosmolar nonketotic hyperglycemic state. The patient is alert and oriented. He does not appear to be confused. His blood glucose is 1084. Blood work reviewed. The patient has pseudohyponatremia. Bicarb is normal. No gap. The patient has chronic kidney disease. The BUN and creatinine are at the baseline. The patient was given 2 L of normal saline. The case was discussed with the hospitalist who recommends restarting the insulin drip. The patient was given 10 units of insulin IV and started on insulin drip. The patient was given morphine for pain and Norflex for the spasms/cramps. The patient will be admitted to the ICU. Shared decision making: [] Code status: [] Critical Care Time: 40 minutes, critical care time is separate from any procedures that are performed. The following was considered in the determination of critical care but not limited to the level medical decision-making, intensive cardiac and/or respiratory monitor, frequent vital sign monitoring, evaluation of laboratory studies, evaluation of a radiographic studies, oxygen monitoring and constant monitoring. Assessment/Plan 1. Leg muscle spasm (M62.838: Other muscle spasm) 2. Type 2 diabetes mellitus with hyperosmolar nonketotic hyperglycemia (E11.00: Type 2 diabetes mellitus with hyperosmolarity without nonketotic hyperglycemic-hyperos molar coma ([facility])) 3. Pseudohyponatremia (R79.89: Other specified abnormal findings of blood chemistry) 4. CKD (chronic kidney disease) (N18.9: Chronic kidney disease, unspecified) 5. Hypertension (I10: Essential (primary) hypertension) 6. Hyperlipidemia (E78.5: Hyperlipidemia, unspecified) 7. Chronic hypoxic respiratory failure (J96.11: Chronic respiratory failure with hypoxia) 8. TC (obstructive sleep apnea) (G47.33: Obstructive sleep apnea (adult) (pediatric)) 9. Obesity (E66.9: Obesity, unspecified) Orders: gabapentin, 600 mg = 2 cap(s), Cap, Oral, Once, Stop date 03/05/25 21:21:00 EDT, STAT, Start date 03/05/25 21:21:00 EDT, 03/05/25 21:21:00 EDT insulin regular, 10 unit(s) = 0.1 mL, Injection-Insulin, IV Push, Once, Stop date 03/05/25 21:17:00 EDT, STAT, Start date 03/05/25 21:17:00 EDT morphine, 4 mg = 1 mL, Injection, IV Push, Once, Stop date 03/05/25 21:01:00 EDT, ST (more content not included)... Normal [facility] Comment on above: Result Comment: Elec tronically Signed By: Shira Snider, Alejandro H\.br\Date and Time Signed: 03/06/25 00:11 EDT Extra Bryan 03-06-2025 WB Tube Collected Yes Invalid Interpretation Code [facility] Comment on above: Performed By: #### 1 [id number] #### [facility] [address] [place] [address] Glucoseon 03-06-2025 Glucose [Mass/Vol] 551 mg/dL Abnormal 55-199 [facility] Comment on above: Result Comment: Crit ical Result Verified by Previous Result Critical Result [id number] Called to and read back by: DIGNA MARX at: 03/06/2025 00:04:06 by:[email or web address] Performed By: #### 2 [id number] #### [facility] [address] [place] [id number] Inpatient Clinical Summaryon 03-06-2025 Inpatient Clinical Summary Inpatient Clinical Summary [address] [address] Clinical Summary Person Information: Name: NICOLE LORA Age: 65 Years : 1960 Sex: Male PCP: Mounika Brooke MD Marital Status: Phone: [phone] Race: White Ethnicity: Non- or Language: Palauan Visit Id: Visit Reason: Hyperglycemia; Medical problem - minor; Leg pain-swelling; LEG PAIN Speciality: Acuity: Enc Type: Inpatient Med Service: Medical Arrival: 03/05/2025 19:53:39 Discharge: Dispo Type: Admit to [facility] Address: [address] [place] [id number] Provider Notes: Diagnosis: 1:Leg muscle spasm; 4:CKD (chronic kidney disease); 5:Hypertension; 6:Hyperlipidemia; 7:Chronic hypoxic respiratory failure; 8:TC (obstructive sleep apnea); 9:Obesity Problems Active History of UTI Feeling of incomplete bladder emptying At risk for falls Renal cyst AMY (acute kidney injury) BPH with urinary obstruction PVD (pulmonary valve disease) GERD (gastroesophageal reflux disease) T2DM (type 2 diabetes mellitus) Urinary retention Respiratory acidosis Elevated brain natriuretic peptide (BNP) level Chronic hypoxemic respiratory failure Acute on chronic respiratory failure with hypercapnia Diabetes mellitus with neuropathy Chronic GERD CKD (chronic kidney disease) Type 2 diabetes mellitus Asthma TC (obstructive sleep apnea) Acute hypoxemic respiratory failure Type 2 diabetes mellitus with stage 3 chronic kidney disease Cramps of lower extremity Onychomycosis Type 2 diabetes mellitus with hyperglycemia Type 2 diabetes mellitus with hyperlipidemia 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 mellitus Acquired absence of other right toe(s) Chronic kidney disease, stage 3b Type 2 diabetes mellitus with morbid obesity Colonoscopy refused Long-term insulin use Hypertension Morbid obesity Hyperlipidemia Restless leg syndrome Low back pain Asthma GERD - Gastro-esophageal reflux disease Varicose veins of lower extremity Chronic cough Smoking Status: Never Smoker Functional Status: Sensory Deficits: History of Falls: Mobility Assistance Prior to Admission: ADLs: Independent Current Level of Assistance for Self-Care/Mobility: Cognitive Status: Oriented x 3 Allergies penicillins () Measurements: Height: 182.88 cm Weight: 115.7 kg Blood Pressure: 111 mmHg / 73 mmHg BMI: 34.59 kg/m2 Procedures No Procedures Performed or Documented Immunizations No Immunizations Documented This Visit Final Med List: gabapentin (gabapentin 600 mg Tab) 1 Tablets By Mouth 3 times a day. insulin regular (HumuLIN R KwikPen (Concentrated) human recombinant 500 units/mL subcutaneous solution) inject 40 units under the skin in the morning, 40 in the evening and 20 at bedtime.. Refills: 1. losartan (losartan 50 mg Tab) 1 Tablets By Mouth every day. Refills: 1. Misc Prescription (Glucose Kit) Glucose meter. Include autolet, matching test strips, lancets, & alcohol wipes, #100 or as allowed by insurance; DX: E11.9. Refills: 0. Misc Prescription (Pen Needle 31G x 6mm) Pen Needle 31G x 6mm. Refills: 1. Care Team Members: Attending Physician: Jigna Suarez MD Consulting Physician: Referring Physician: Follow up: Patient Education Information: Normal [facility] Inpatient Patient Summaryon 03-06-2025 Inpatient Patient Summary Inpatient Patient Summary [address] [address] Patient Discharge Instructions PERSON INFORMATION Name: NICOLE LORA Date of : 1960 Current Date: 03/06/2025 08:44:51 PHYSICIANS Admitting Physician: Jigna Suarez MD Primary Care Physician: Mendy LYMAN, Mounika Lugo PCP Comment: Discharge Diagnosis: 1:Leg muscle spasm; 4:CKD (chronic kidney disease); 5:Hypertension; 6:Hyperlipidemia; 7:Chronic hypoxic respiratory failure; 8:TC (obstructive sleep apnea); 9:Obesity Condition at Discharge: NICOLE LORA has been given the following list of follow-up instructions, prescriptions, and patient education materials: PATIENT FOLLOW-UP INFORMATION Diet: Discharge Activity: Discharge Restrictions: Wound Care Instructions: Remove Your Dressing In Days Call Your Doctor For: IF UNABLE TO CONTACT YOUR PHYSICIAN AND YOU FEEL IT IS AN EMERGENCY, GO TO THE NEAREST EMERGENCY ROOM OR CALL 911 Home Treatment: Devices/Equipment: Blood glucose monitor, Oxygen, Walker Special Services: Additional Instructions: Primary Care Physician to provide the following pending test results: Follow up: In the event that this physician does not participate in your insurance network, please consult with your insurance company to find a nearby participating provider. Comment: I, NICOLE LORA, have received the attached patient education materials/instruction s and have verbalized understanding: Patient Signature Date Clinican/Nurse Signature Date HERE ARE THE MEDICATION CHANGES THAT OCCURRED DURING YOUR HOSPITAL STAY Medications to Continue with No Changes Other Medications gabapentin (gabapentin 600 mg Tab) 1 Tablets By Mouth 3 times a day. Last Dose: ____Next Dose: ____ insulin regular (HumuLIN R KwikPen (Concentrated) human recombinant 500 units/mL subcutaneous solution) inject 40 units under the skin in the morning, 40 in the evening and 20 at bedtime.. Refills: 1. Last Dose: ____Next Dose: ____ losartan (losartan 50 mg Tab) 1 Tablets By Mouth every day. Refills: 1. Last Dose: ____Next Dose: ____ Misc Prescription (Glucose Kit) Glucose meter. Include autolet, matching test strips, lancets, & alcohol wipes, #100 or as allowed by insurance; DX: E11.9. Refills: 0. Last Dose: ____Next Dose: ____ Misc Prescription (Pen Needle 31G x 6mm) Pen Needle 31G x 6mm. Refills: 1. Last Dose: ____Next Dose: ____ Comment: MEDICATION LIST PROVIDED FOR YOU IS A LIST OF YOUR CURRENT MEDICATIONS. PLEASE CARRY THIS WITH YOU AT ALL TIMES. gabapentin (gabapentin 600 mg Tab) 1 Tablets By Mouth 3 times a day. insulin regular (HumuLIN R KwikPen (Concentrated) human recombinant 500 units/mL subcutaneous solution) inject 40 units under the skin in the morning, 40 in the evening and 20 at bedtime.. Refills: 1. losartan (losartan 50 mg Tab) 1 Tablets By Mouth every day. Refills: 1. Misc Prescription (Glucose Kit) Glucose meter. Include autolet, matching test strips, lancets, & alcohol wipes, #100 or as allowed by insurance; DX: E11.9. Refills: 0. Misc Prescription (Pen Needle 31G x 6mm) Pen Needle 31G x 6mm. Refills: 1. Pharmacy Information: Comment: PATIENT EDUCATION INFORMATION Instructions: Medication Leaflets: You may receive a survey from Juan Ball asking you to rate your care experience. Your feedback is important and will help us understand what we do well and how we can improve the quality of care we provide to you, your loved ones and our community. It???s an honor to serve you. Thank you for choosing [facility] Normal [facility] Interdisciplinary Note - Yimi e Manageron 03-06-2025 Interdisciplinary Note - Psychiatry Physician Interdisciplinary Note - Psychiatry Physician CRM to room ICU 7 Patient is awake, alert and oriented. Patient is from home alone. His Daughter will transport him at [place]. Per Patient he lives in the same apartment compex as one of his Daughters, he does assist her every few days because she has cancer. He is scheduled to be with her on 03/07 and would prefer to DC home today or 03/07. Patient PCP, DME and insurance verified. Per patient he has a cane and walker at home. He has been using the walker. Patient is an inpatient. He came in with Leg pain. Patient also has hyperglycemia. Patient meds will be adjusted today. Patient is pending PT recs. Patient declined needs for SNF, HH care, OPPT or any additional DME. He did state he is pending a scooter through integrated with his [employer] insurance. Per Dr Macario patient may move to the [facility]. Patient was provided CRM contact, white board updated. CRM following DC date TBD, DC plan home, declined needs PT cleared patient for home DC with FWW use per Dr Macario goal will be to try and DC patient 03/07 Patient moved to room 305 CRM did call and left VM for MA at Dr Brooke to f/u with patient in regard to his electric scooter order Normal [facility] Comment on above: Result Comment: Elec tronically Signed By: Jodee Giang\.br\Date and Time Signed: 03/06/25 16:16 EDT Interdisciplinary Note - Psychiatry Physician Interdisciplinary Note - Psychiatry Physician CRM to room ICU 7 Patient is awake, alert and oriented. Patient is from home alone. His Daughter will transport him at DC. Per Patient he lives in the same apartment compex as one of his Daughters, he does assist her every few days because she has cancer. He is scheduled to be with her on 03/07 and would prefer to DC home today or 03/07. Patient PCP, DME and insurance verified. Per patient he has a cane and walker at home. He has been using the walker. Patient is an inpatient. He came in with Leg pain. Patient also has hyperglycemia. Patient meds will be adjusted today. Patient is pending PT recs. Patient declined needs for SNF, HH care, OPPT or any additional DME. He did state he is pending a scooter through integrated with his devoted insurance. Per Dr Macario patient may move to the [facility]. Patient was provided CRM contact, white board updated. CRM following DC date TBD, DC plan home, declined needs Normal [facility] Comment on above: Result Comment: Elec tronically Signed By: Jodee Giang\.br\Date and Time Signed: 03/06/25 10:21 EDT Patient Education - Texton 0 03-06-2025 Patient Education - Text Patient Education - Text Normal [facility] XR Chest Single Viewon 03-06 XR Chest Single View Exam Date/Time: 03/05/2025 21:18 EDT Reason for Exam: Shortness of breath (SOB) Report IMPRESSION: No significant interval change from prior. EXAMINATION/TECHNIQUE : XR Chest Single View HISTORY: Shortness of breath. COMPARISON: 12/20/2024. RESULT: Elevation left hemidiaphragm. Probable scarring/atelectasis at the lung bases, especially on the left, grossly unchanged. No large pleural effusion. No pneumothorax. Stable cardiomediastinal silhouette. No acute osseous findings. Ordering Provider: Alejandro Silva FINAL REPORT Dictated: 03/06/2025 9:44 am Primo Robles MD Signed (Electronic Signature): 03/06/2025 9:44 am Signed by: Primo Robles MD Transcribed by: KAT Technologist: CML Normal [facility] eGFRon 03-06-2025 eGFR 47 mL/min/1.73 m2 Low >=59 [facility] Comment on above: Performed By: #### 1 [id number] #### [facility] [address] [place] [address] BMPon 03-05-2025 Glucose [Mass/Vol] 1084 mg/dL Abnormal 55-199 [facility] Comment on above: Result Comment: Crit ical Result Verified by Repeat Analysis Critical Result [id number] Called to and read back by: KELY GE at: 03/05/2025 21:05:22 by:KELLEE Performed By: #### 2 [id number] #### [facility] [address] [place] [address] Sodium [Moles/Vol] 119 mmol/L Abnormal 135-145 [facility] Comment on above: Result Comment: Crit ical Result Verified by Repeat Analysis Critical Result S_NA of [id number] Called to and read back by: KELY GE at: 03/05/2025 21:05:22 by:KELLEE Performed By: #### 2 [id number] #### [facility] [address] [place] [address] Anion gap [Moles/Vol] 13 mmol/L Normal 6-16 [facility] Comment on above: Performed By: #### 2 [id number] #### [facility] [address] [facility] [place] [address] BUN/Creat Ratio 21 No Units High 10-20 [facility] Comment on above: Performed By: #### 2 [id number] #### [facility] [address] [place] [address] Calcium [Mass/Vol] 8.4 mg/dL Low 8.9-11.1 [facility] Comment on above: Performed By: #### 2 [id number] #### [facility] [address] [place] [address] Chloride [Moles/Vol] 86 mmol/L Low 101-111 [facility] Comment on above: Performed By: #### 2 [id number] #### [facility] [address] [place] [address] CO2 [Moles/Vol] 25 mmol/L Normal 21-31 [facility] Comment on above: Performed By: #### 2 [id number] #### [facility] [address] [place] [address] Creatinine [Mass/Vol] 1.9 mg/dL High 0.5-1.3 [facility] Comment on above: Performed By: #### 2 [id number] #### [facility] [address] [place] [address] Potassium [Moles/Vol] 4.6 mmol/L Normal 3.5-5.3 [facility] Comment on above: Performed By: #### 2 [id number] #### [facility] [address] [place] [address] Urea nitrogen [Mass/Vol] 40 mg/dL High 5-21 [facility] Comment on above: Performed By: #### 2 [id number] #### [facility] [address] [place] [address] BOHBon 03-05-2025 Beta HB Qnt 0.45 mmol/L High 0.02-0.27 [facility] Comment on above: Performed By: #### 2 [id number] #### [facility] [address] [place] [address] CBC w/ Auto Diffon 5 Basophil Absolute 0.1 E9/L Normal 0.0-0.2 [facility] Comment on above: Performed By: #### 2 [id number] #### [facility] [address] [place] [address] Basophils/100 WBC (Bld) 0.9 % Normal 0.0-2.0 [facility] Comment on above: Performed By: #### 2 [id number] #### [facility] [address] [place] [address] Eos Absolute 0.2 E9/L Normal 0.0-0.5 [facility] Comment on above: Performed By: #### 2 [id number] #### [facility] [address] [place] [address] Eosinophils/100 WBC (Bld) 2.4 % Normal 0.0-8.0 [facility] Comment on above: Performed By: #### 2 [id number] #### [facility] [address] [place] [address] Erythrocyte distribution width (RBC) [Ratio] 12.9 % Normal 10.9-14.2 [facility] Comment on above: Performed By: #### 2 [id number] #### [facility] [address] [place] [address] Hematocrit (Bld) [Volume fraction] 44.1 % Normal 37.7-49.0 [facility] Comment on above: Performed By: #### 2 [id number] #### [facility] [address] [place] [address] Hemoglobin (Bld) [Mass/Vol] 14.7 g/dL Normal 13.5-17.5 [facility] Comment on above: Performed By: #### 2 [id number] #### [facility] [address] [place] [address] Lymph Absolute 1.2 E9/L Normal 1.0-4.0 [facility] Comment on above: Performed By: #### 2 [id number] #### [facility] [address] [place] [address] Lymphocytes/100 WBC (Bld) 17.9 % Normal 14.0-50.0 [facility] Comment on above: Performed By: #### 2 [id number] #### [facility] [address] [place] [address] MCH (RBC) [Entitic mass] 31.2 pg Normal 27.0-34.0 [facility] Comment on above: Performed By: #### 2 [id number] #### [facility] [address] [place] [address] MCHC (RBC) [Mass/Vol] 33.2 g/dL Normal 31.4-36.0 [facility] Comment on above: Performed By: #### 2 [id number] #### [facility] [address] [place] [address] MCV (RBC) [Entitic vol] 93.8 fL Normal 80.0-100.0 [facility] Comment on above: Performed By: #### 2 [id number] #### [facility] [address] [place] [address] Mccreary Absolute 0.4 E9/L Normal 0.2-1.0 [facility] Comment on above: Performed By: #### 2 [id number] #### [facility] [address] [place] [address] Monocytes/100 WBC (Bld) 6.5 % Normal 4.0-14.0 [facility] Comment on above: Performed By: #### 2 [id number] #### [facility] [address] [place] [address] Neutro Absolute 5.0 E9/L Normal 2.0-7.5 [facility] Comment on above: Performed By: #### 2 [id number] #### [facility] [address] [place] [address] Neutro Auto 72.3 % Normal 36.0-75.0 [facility] Comment on above: Performed By: #### 2 [id number] #### [facility] [address] [place] [address] Platelet 230.0 E9/L Normal 150.0-500.0 [facility] Comment on above: Performed By: #### 2 [id number] #### [facility] [address] [place] [address] Platelet mean volume (Bld) [Entitic vol] 8.1 fL Normal 6.4-10.8 [facility] Comment on above: Performed By: #### 2 [id number] #### [facility] [address] [place] [address] RBC 4.7 E12/L Normal 4.3-5.9 [facility] Comment on above: Performed By: #### 2 [id number] #### [facility] [address] [place] [address] WBC 6.9 E9/L Normal 4.0-11.0 [facility] Comment on above: Performed By: #### 2 [id number] #### [facility] [address] [place] [address] Capillary Glucose POCon 02-18 Glucose Cap >500 Abnormal [facility] Comment on above: Result Comment: Pricila elbert Meter Performed By: #### 2 [id number] #### [facility] [address] [place] [address] Glucose Cap >500 Abnormal [facility] Comment on above: Result Comment: Pricila elbert Meter Performed By: #### 2 [id number] #### [facility] [address] [place] [address] Glucose Cap >500 Abnormal [facility] Comment on above: Performed By: #### 2 [id number] #### [facility] [address] [place] [address] ED Clinical Summaryon 2024 ED Clinical Summary ED Clinical Summary [address] [address] ED Clinical Summary Person Information Name: NICOLE LORA/[facility] Age: 65 Years : 1960 Sex: Male Language: Palauan PCP: Mounika Brooke MD Marital Status: Phone: [phone] Visit Id: Visit Reason: Hyperglycemia; Medical problem - minor; Leg pain-swelling; LEG PAIN Speciality: Acuity: 2 Enc Type: Inpatient Med Service: Medical Arrival: 03/05/2025 19:53:39 Discharge: LOS: 000 02:16 Checkin: 03/05/2025 19:53:39 Checkout: 03/05/2025 22:09:09 [facility] EV[facility]: Event Name Event Status Request Date/Time Start Date/Time Complete Date/Time Arrive Complete 03/05/2025 19:53:39 03/05/2025 19:53:39 03/05/2025 19:53:39 Document Home Meds Request 03/05/2025 19:53:39 Triage Complete 03/05/2025 19:53:39 03/05/2025 19:57:22 03/05/2025 19:57:22 Bed Assign Complete 03/05/2025 19:53:39 03/05/2025 19:53:39 03/05/2025 19:53:39 Dr Exam Complete 03/05/2025 19:53:39 03/05/2025 20:02:09 03/05/2025 20:02:09 RN Exam Complete 03/05/2025 19:53:39 03/05/2025 19:58:11 03/05/2025 19:58:11 Isolation Screening Request 03/05/2025 19:57:23 Pending Labs Complete 03/05/2025 19:57:34 03/05/2025 19:57:34 03/05/2025 19:57:35 Fall Risk Request 03/05/2025 19:58:11 Registration Complete 03/05/2025 20:02:09 03/05/2025 21:34:31 03/05/2025 21:34:31 Dr Exam Complete 03/05/2025 20:02:53 03/05/2025 20:02:53 03/05/2025 20:02:53 EKG Complete 03/05/2025 20:08:50 03/05/2025 20:15:20 Meds Admin Complete 03/05/2025 20:08:50 03/05/2025 20:22:14 Pending Labs Complete 03/05/2025 20:08:50 03/05/2025 21:10:39 Lab Complete 03/05/2025 20:08:50 03/05/2025 21:05:38 X-Ray Complete 03/05/2025 20:08:50 03/05/2025 20:26:17 03/05/2025 21:18:53 Pending Labs Cancel 03/05/2025 20:09:05 03/05/2025 20:20:17 Lab Cancel 03/05/2025 20:09:05 03/05/2025 20:20:17 Pending Labs Complete 03/05/2025 20:18:04 03/05/2025 20:18:04 03/05/2025 20:54:32 Lab Complete 03/05/2025 20:18:04 03/05/2025 20:18:04 03/05/2025 20:54:32 Pending Labs Complete 03/05/2025 20:19:39 03/05/2025 20:19:39 03/05/2025 20:54:32 Lab Complete 03/05/2025 20:19:39 03/05/2025 20:19:39 03/05/2025 20:54:32 Meds Admin Complete 03/05/2025 21:02:07 03/05/2025 21:09:16 Meds Admin Complete 03/05/2025 21:16:20 03/05/2025 21:41:22 Consult Request 03/05/2025 21:16:34 Hospitalist Consult Request 03/05/2025 21:16:34 Admit Request 03/05/2025 21:18:02 Patient Care Request 03/05/2025 21:18:05 Patient Care Request 03/05/2025 21:18:05 Patient Care Request 03/05/2025 21:18:05 Patient Care Request 03/05/2025 21:18:05 Medicare Form Complete 03/05/2025 21:18:06 03/05/2025 21:52:24 Patient Care Request 03/05/2025 21:18:07 Patient Care Request 03/05/2025 21:18:07 Meds Admin Request 03/05/2025 21:18:20 Wet Read Request 03/05/2025 21:18:53 Meds Admin Complete 03/05/2025 21:22:21 03/05/2025 21:48:23 Reg Complete Request 03/05/2025 21:34:31 Reg Bed Request Complete 03/05/2025 21:34:31 03/05/2025 21:34:31 03/05/2025 21:34:31 ADDRESS: [address] [place] [phone] [facility] DOC NOTES: MEDICAL INFORMATION: Prescriptions Given: Medications to Continue with No Changes Other Medications gabapentin (gabapentin 600 mg Tab) 1 Tablets By Mouth 3 times a day. insulin regular (HumuLIN R KwikPen (Concentrated) human recombinant 500 units/mL subcutaneous solution) inject 40 units under the skin in the morning, 40 in the evening and 20 at bedtime.. Refills: 1. losartan (losartan 50 mg Tab) 1 Tablets By Mouth every day. Refills: 1. Misc Prescription (Glucose Kit) Glucose meter. Include autolet, matching test strips, lancets, & alcohol wipes, #100 or as allowed by insurance; DX: E11.9. Refills: 0. Misc Prescription (Pen Needle 31G x 6mm) Pen Needle 31G x 6mm. Refills: 1. PATIENT EDUCATION INFORMATION: Instructions: Follow up: DIAGNOSIS: Normal [facility] ED Patient Education Noteon 03-05-2025 ED Patient Education Note ED Patient Education Note Normal [facility] ED Patient Summaryon 025 ED Patient Summary ED Patient Summary [place] [id number] Patient Discharge Instructions Person Information Name: NICOLE LORA Age: 65 Years Arrival Date: 03/05/2025 19:53:39 Discharge Diagnosis: Primary Care Physician: Mounika Brooke MD Provider Information Primary Provider: Alejandro Silva M.D. Advanced Steward/Stewardess Club Car:None The exam and treatment you received in the Emergency Department were for an urgent problem and are not intended as complete care. It is important that you follow up with a doctor, nurse practitioner, or physician???s preschool assistant director for ongoing care. If your symptoms become worse or you do not improve as expected and you are unable to reach your usual health care provider, you should return to the Emergency Department. We are available 24 hours a day. NICOLE LORA has been given the following list of patient education materials, prescriptions and follow-up instructions: Follow-up Instructions: In the event that this physician does not participate in your insurance network, please consult with your insurance company to find a nearby participating provider. Patient Education Materials: A MESSAGE TO ALL PATIENTS REGARDING OPIOIDS PRESCRIPTION OPIOIDS: WHAT YOU NEED TO KNOW Prescription opioids can be used to help relieve arzgfftw-gd-uneraw pain and are often prescribed following a surgery or injury, or for certain health conditions. These medications can be an important part of the treatment but also come with serious risks. It is important to work with your healthcare provider to make sure you are getting the safest, most effective care. WHAT ARE THE RISKS AND SIDE EFFECTS OF OPIOID USE? Prescription opioids carry serious risks of addiction and overdose, especially with prolonged use. An opioid overdose, often marked by slowed breathing, can cause sudden . The use of prescription opioids can have a number of side effects as well, even when taken as directed: ??? Tolerance???meaning you might need to take more of the medication for the same pain relief ??? Physical dependence???meaning you have symptoms of withdrawal when a medication is stopped ??? Increased sensitivity to pain ??? Constipation ??? Nausea, vomiting, and dry mouth ??? Sleepiness and dizziness ??? Confusion ??? Depression ??? Low levels of testosterone that can result in lower sex drive, energy, and strength ??? Itching and sweating RISKS ARE GREATER WITH: ??? History of drug misuse, substance use disorder, or overdose ??? Mental health conditions (such as depression or anxiety) ??? Sleep apnea ??? Older age (65 years and older) ??? Avoid alcohol while taking prescription opioids. Also, unless specifically advised by your health care provider, medications to avoid include: ??? Benzodiazepines (such as Xanax or Valium) ??? Muscle relaxants (such as Soma or Flexeril) ??? Hypnotics (such as Ambien or Lunesta) ??? Other prescription opioids KNOW YOUR OPTIONS Talk to your health care provider about ways to manage your pain that don???t involve prescription opioids. Some of these options may actually work better and have fewer risks and side effects. Options may include: ??? Pain relievers such as acetaminophen, ibuprofen, and naproxen ??? Some medication that are also used for depression or seizures ??? Physical therapy and exercise ??? Cognitive behavioral therapy, a psychological, goal-directed approach, in which patients learn how to modify physical, behavioral, and emotional triggers of pain and stress. IF YOU ARE PRESCRIBED OPIOIDS FOR PAIN: ??? Never take opioids in greater amounts or more often than prescribed. ??? Follow up with your primary health care provider. o Work together to create a plan on how to manage your pain. o Talk about ways to help manage your pain that don???t involve prescription opioids. o Talk about any and all concerns and side effects. ??? Help prevent misuse and abuse o Never sell or share prescription opioids. o Never use another person???s prescription opioids. ??? Store prescription opioids in a secure place and out of reach of others (this may include visitors, children, friends, and family). ??? Safely dispose of unused prescription opioids: Find your community drug take-back program or your pharmacy mail-back program, or flush them down the toilet, following guidance from the Food and Drug Administration (www.fda.gov/Drugs/Re sourcesForYou). ??? Visit www.cdc.gov/drugoverd ose to learn about the risks of opioids abuse and overdose. ??? If you believe you may be struggling with addiction, tell your health doggy daycare activities director and ask for guidance or call [facility]???S National Helpline at 3-915-607-CGSI. z Source: [place] Department of Health and Human Services/Center for Disease Control & Prevention [facility] (more content not included)... Normal [facility] Extra Blueon 03-05-2025 Tube Collected Plasma Yes Invalid Interpretation Code [facility] Comment on above: Performed By: #### 1 [id number] #### [facility] [address] [place] [address] Glucoseon 03-05-2025 Glucose [Mass/Vol] 726 mg/dL Abnormal 55-199 [facility] Comment on above: Result Comment: Crit ical Result Verified by Repeat Analysis Critical Result [id number] Called to and read back by: BINA GONZALEZ at: 03/05/2025 23:09:06 by:[email or web address] Performed By: #### 2 [id number] #### [facility] [address] [place] [address] Hep Func Panelon 03-05-2025 Albumin [Mass/Vol] 3.3 g/dL Normal 3.3-5.0 [facility] Comment on above: Performed By: #### 2 [id number] #### [facility] [address] [place] [address] Albumin/Globulin [Mass ratio] 1.2 {ratio} Normal 1.1-2.2 [facility] Comment on above: Performed By: #### 2 [id number] #### [facility] [address] [place] [address] Alk Phos 160 Int._Unit/L High 21-98 [facility] Comment on above: Performed By: #### 2 [id number] #### [facility] [address] [place] [address] ALT 19 Int._Unit/L Normal 6-46 [facility] Comment on above: Performed By: #### 2 [id number] #### [facility] [address] [place] [address] AST 15 Int._Unit/L Normal 5-43 [facility] Comment on above: Performed By: #### 2 [id number] #### [facility] [address] [place] [address] Bili Direct 0.1 mg/dL Normal 0.0-0.4 [facility] Comment on above: Performed By: #### 2 [id number] #### [facility] [address] [place] [address] Bili Indirect 0.6 mg/dL Normal 0.1-0.9 [facility] Comment on above: Performed By: #### 2 [id number] #### [facility] [address] [place] [address] Bili Total 0.7 mg/dL Normal 0.0-1.1 [facility] Comment on above: Performed By: #### 2 [id number] #### [facility] [address] [place] [address] Globulin (S) [Mass/Vol] 2.8 g/dL Normal 1.4-4.0 [facility] Comment on above: Performed By: #### 2 [id number] #### [facility] [address] [place] [address] Protein [Mass/Vol] 6.1 g/dL Normal 6.0-7.8 [facility] Comment on above: Performed By: #### 2 [id number] #### [facility] [address] [place] [address] Magnesiumon 03-05-2025 Magnesium [Mass/Vol] 2.0 mg/dL Normal 1.3-2.4 [facility] Comment on above: Performed By: #### 2 [id number] #### [facility] [address] [place] [address] Pre-Arrival Noteon Pre-Arrival Note Pre-Arrival Note Pre-Arrival Summary Name: , Current Date: 03/05/2025 19:54:07 EDT Gender: Male Date of : Age: 65 Pre-Arrival Type: EMS ETA: 03/05/2025 20:14:00 EDT Primary Care Physician: Presenting Problem: leg pain Pre-Arrival User: Liberty Cope RN Referring Source: Location: Completion Date/Time: 03/05/2025 19:44:00 [facility] Emergency Department Pre-Hospital Report Form Vital Signs: Pre-Hospital Report: Treatment in Route: Response to Treatment: Misc. Issues: Normal [facility] Troponinon 03-05-2025 Troponin HS 10.10 pg/mL Low 15.90-38.40 [facility] Comment on above: Result Comment: The 95% CI (Confidence Interval) PPV (Positive Predictive Value) for myocardial infarction in females is 38 pg/mL, in males 51 pg/mL. The results should be used in conjunction with clinical conditions of myocardial infarction. (Access High Sensitivity Troponin I Instructions For Use, Opal Caro, March 2018) Performed By: #### 2 [id number] #### [facility] [address] [place] [address] UA with Cult Rflxon 03-05-20 25 Color (U) Colorless Abnormal Yellow [facility] Comment on above: Result Comment: Micr oscopic readings are only performed on those samples that meet specific criteria set forth by [facility]. Performed By: #### 4 [id number] #### [facility] [address] [place] [address] Ketones Ql (U) Negative Normal Negative [facility] Comment on above: Performed By: #### 4 [id number] #### [facility] [address] [place] [address] UA Blood Negative Normal Negative [facility] Comment on above: Performed By: #### 4 [id number] #### [facility] [address] [place] [address] UA Clarity Clear Normal Clear [facility] Comment on above: Performed By: #### 4 [id number] #### [facility] [address] [place] [address] UA Glucose 4+ mg/dL Abnormal Negative [facility] Comment on above: Performed By: #### 4 [id number] #### [facility] [address] [place] [address] UA Leuk Est Negative Normal Negative [facility] Comment on above: Performed By: #### 4 [id number] #### [facility] [address] [place] [address] UA Mucous Negative Normal Negative [facility] Comment on above: Performed By: #### 4 [id number] #### [facility] [address] [place] [address] UA Nitrite Negative Normal Negative [facility] Comment on above: Performed By: #### 4 [id number] #### [facility] [address] [place] [address] UA pH 6.0 Invalid Interpretation Code 5.0-9.0 [facility] Comment on above: Performed By: #### 4 [id number] #### [facility] [address] [place] [address] UA Protein 1+ mg/dL Abnormal Negative [facility] Comment on above: Performed By: #### 4 [id number] #### [facility] [address] [place] [address] UA RBC 0-3 Normal 0-3 [facility] Comment on above: Performed By: #### 4 [id number] #### [facility] [address] [place] [address] UA Spec Grav 1.024 Invalid Interpretation Code 1.005-1.030 [facility] Comment on above: Performed By: #### 4 [id number] #### [facility] [address] [place] [address] UA Urobilinogen Negative Normal Negative [facility] Comment on above: Performed By: #### 4 [id number] #### [facility] [address] [place] [address] UA WBC 0-5 Normal 0-5 [facility] Comment on above: Performed By: #### 4 [id number] #### [facility] [address] [place] [address] Urobilinogen (U) [Mass/Vol] Negative Normal Negative [facility] Comment on above: Performed By: #### 4 [id number] #### [facility] [address] [place] [address] UA Spec Desc Clean Catch Normal [facility] Comment on above: Performed By: #### 4 [id number] #### [facility] [address] [place] [address] eGFRon 03-05-2025 eGFR 38 mL/min/1.73 m2 Low >=59 [facility] Comment on above: Performed By: #### 1 [id number] #### [facility] [address] [place] [address] Basic Metabolic Panelon 05-0 Anion gap [Moles/Vol] 13.7 mmol/L Normal 6.0-15.0 [facility] Comment on above: Performed By: #### B MP, MG, BHOB, CBC #### [facility] [address] Calcium [Mass/Vol] 8.9 mg/dL Normal 8.6-10.3 [facility] Comment on above: Performed By: #### B MP, MG, BHOB, CBC #### [facility] [address] Chloride [Moles/Vol] 98 mmol/L Normal 98-107 [facility] Comment on above: Performed By: #### B MP, MG, BHOB, CBC #### [facility] [address] CO2 [Moles/Vol] 23.1 mmol/L Normal 21.0-31.0 [facility] Comment on above: Performed By: #### B MP, MG, BHOB, CBC #### [facility] [address] Creatinine [Mass/Vol] 1.72 mg/dL High 0.70-1.30 [facility] Comment on above: Performed By: #### B MP, MG, BHOB, CBC #### [facility] [address] [place] [address] [place] Creatinine Clr Calc Pharmacy 55.60 Normal [facility] Comment on above: Performed By: #### B MP, MG, BHOB, CBC #### [address] Estimated GFR 43.569 mL/Min Normal [facility] Comment on above: Performed By: #### B MP, MG, BHOB, CBC #### [address] Glucose [Mass/Vol] 739 mg/dL Off scale high 70-100 [facility] Comment on above: Result Comment: Crit ical Result Called to and read back by: SAMPSON WESTON at: 12/22/2024 18:30:49 by:[id number] Random Glucose Reference Range is dependent on time and content of last meal. Glucose of more than 200 mg/dL in a nonstressed, ambulatory subject supports the diagnosis of Diabetes Mellitus. ADA recommended reference range Performed By: #### B MP, MG, BHOB, CBC #### [facility] [address] Potassium [Moles/Vol] 4.8 mmol/L Normal 3.5-5.1 [facility] Comment on above: Performed By: #### B MP, MG, BHOB, CBC #### [facility] [address] Sodium [Moles/Vol] 130 mmol/L Low 136-145 [facility] Comment on above: Performed By: #### B MP, MG, BHOB, CBC #### [facility] [address] Urea nitrogen [Mass/Vol] 38 mg/dL High 7-25 [facility] Comment on above: Performed By: #### B MP, MG, BHOB, CBC #### [address] Beta Hydroxybuterateon 12-22 Beta Hydroxybuterate 1.12 mmol/L High 0.02-0.27 [facility] Comment on above: Result Comment: PERF ORMED BY: [place] [address] PATHOLOGIST HOME [employer] VIS[employer] MARIA LUISA SHAH M.D. Performed By: #### B MP, MG, BHOB, CBC #### [address] Complete Blood Count Auto Di ffon 12-22-2024 Basophils (Bld) [#/Vol] 0.2 10*3/uL Normal 0.0-0.2 [facility] Comment on above: Result Comment: PERF ORMED BY: [place] [address] PATHOLOGIST HOME [employer] VISIT[employer] MARIA LUISA SHAH M.D. Performed By: #### B MP, MG, BHOB, CBC #### [place] [address] [place] Basophils/100 WBC (Bld) 2.6 % Normal . [facility] Comment on above: Performed By: #### B MP, MG, BHOB, CBC #### [address] Eosinophils (Bld) [#/Vol] 0.1 10*3/uL Normal 0.0-0.45 [facility] Comment on above: Performed By: #### B MP, MG, BHOB, CBC #### [address] Eosinophils/100 WBC (Bld) 2.0 % Normal . [facility] Comment on above: Performed By: #### B MP, MG, BHOB, CBC #### [address] Erythrocyte distribution width (RBC) [Ratio] 13.9 % Normal 12.0-14.8 [facility] Comment on above: Performed By: #### B MP, MG, BHOB, CBC #### [address] Hematocrit (Bld) [Volume fraction] 45.4 % Normal 38.8-50.0 [facility] Comment on above: Performed By: #### B MP, MG, BHOB, CBC #### [address] Hemoglobin (Bld) [Mass/Vol] 15.2 g/dL Normal 13.0-17.0 [facility] Comment on above: Performed By: #### B MP, MG, BHOB, CBC #### [address] Lymphocytes (Bld) [#/Vol] 1.5 10*3/uL Normal 1.00-4.8 [facility] Comment on above: Performed By: #### B MP, MG, BHOB, CBC #### [address] Lymphocytes/100 WBC (Bld) 23.7 % Normal . [facility] Comment on above: Performed By: #### B MP, MG, BHOB, CBC #### [address] MCH (RBC) [Entitic mass] 31.5 pg Normal 27.5-35.2 [facility] Comment on above: Performed By: #### B MP, MG, BHOB, CBC #### [address] MCV (RBC) [Entitic vol] 93.9 fL Normal 83.5-101 [facility] Comment on above: Performed By: #### B MP, MG, BHOB, CBC #### [address] Mean Corpuscular HGB Conc 33.5 g/dL Normal 32.5-35.6 [facility] Comment on above: Performed By: #### B MP, MG, BHOB, CBC #### [address] Monocytes (Bld) [#/Vol] 0.6 10*3/uL Normal 0.0-0.8 [facility] Comment on above: Performed By: #### B MP, MG, BHOB, CBC #### [place] [address] [place] Monocytes/100 WBC (Bld) 17.04 % Normal 0.00-20.00 [facility] Comment on above: Performed By: #### B MP, MG, BHOB, CBC #### [address] Monocytes/100 WBC (Bld) 9.3 % Normal . [facility] Comment on above: Performed By: #### B MP, MG, BHOB, CBC #### [address] Neutrophils (Bld) [#/Vol] 3.9 10*3/uL Normal 1.8-7.7 [facility] Comment on above: Performed By: #### B MP, MG, BHOB, CBC #### [address] Neutrophils/100 WBC (Bld) 62.4 % Normal . [facility] Comment on above: Performed By: #### B MP, MG, BHOB, CBC #### [address] NRBC% 0.1 /100{WBC} Normal 0-0.5 [facility] Comment on above: Performed By: #### B MP, MG, BHOB, CBC #### [address] Platelet mean volume (Bld) [Entitic vol] 8.2 fL Normal 6.6-10.1 [facility] Comment on above: Performed By: #### B MP, MG, BHOB, CBC #### [address] Platelets (Bld) [#/Vol] 206 10*3/uL Normal 150-450 [facility] Comment on above: Performed By: #### B MP, MG, BHOB, CBC #### [address] RBC (Bld) [#/Vol] 4.83 10*6/uL Normal 3.90-5.60 [facility] Comment on above: Performed By: #### B MP, MG, BHOB, CBC #### [address] WBC (Bld) [#/Vol] 6.2 10*3/uL Normal 4.1-10.5 [facility] Comment on above: Performed By: #### B MP, MG, BHOB, CBC #### [address] Glucose Poct Glucometerson 0 - Glucose [Mass/Vol] 394 mg/dL Normal [facility] Comment on above: Result Comment: [facility] Glucose Reference Range is dependent on time and content of last meal. Glucose of more than 200 mg/dL in a nonstressed, ambulatory subject supports the diagnosis of Diabetes Mellitus. PERFORMED BY: [place] [address] PATHOLOGIST HOME [employer] VIS[employer] MARIA LUISA SHAH M.D. Performed By: #### G LULS #### Point of Care testing , Commemt1 Normal [facility] Comment on above: Result Comment: Glu2 : WILL NOTIFY DR/RN PERFORMED BY: [place] [address] PATHOLOGIST HOME [employer] VIS[employer] MARIA LUISA SHAH M.D. Performed By: #### G LULS #### Point of Care testing , Glucose [Mass/Vol] 514 mg/dL Off scale high [facility] Comment on above: Result Comment: [facility] Glucose Reference Range is dependent on time and content of last meal. Glucose of more than 200 mg/dL in a nonstressed, ambulatory subject supports the diagnosis of Diabetes Mellitus. Performed By: #### G LULS #### Point of Care testing , Magnesiumon 12-22-2024 Magnesium [Mass/Vol] 2.0 mg/dL Normal 1.9-2.7 [facility] Comment on above: Performed By: #### B MP, MG, BHOB, CBC #### [address] Venous Blood Gason CO2 [Moles/Vol] 24.3 mmol/L Normal 24.0-29.0 [facility] Comment on above: Performed By: #### V BG #### Point of Care testing , HCO3 (Bld) [Moles/Vol] 23.1 mmol/L Normal 23.0-29.0 [facility] Comment on above: Performed By: #### V BG #### Point of Care testing , Respiratory Critical Normal [facility] Comment on above: Result Comment: Crit ical Value called on: 12/22/2024 at 17:51 PERFORMED BY: [place] [address] PATHOLOGIST HOME AND [employer] VIS[employer] MARIA LUISA SHAH M.D. Performed By: #### V BG #### Point of Care testing , VBG Base Excess -1.8 mmol/L Normal -3.0-3.0 [facility] Comment on above: Performed By: #### V BG #### Point of Care testing , VBG Draw Site Venous Normal [facility] Comment on above: Performed By: #### V BG #### Point of Care testing , VBG Frac Inspired O2 21 % Normal [facility] Comment on above: Performed By: #### V BG #### Point of Care testing , VBG O2 Content 6.8 mmol/L Normal 6.6-9.7 [facility] Comment on above: Performed By: #### V BG #### Point of Care testing , VBG Oxygen Saturation 68.3 % Low 73.0-76.0 [facility] Comment on above: Performed By: #### V BG #### Point of Care testing , VBG PCO2 39.8 mm[Hg] Normal 38.0-50.0 [facility] Comment on above: Performed By: #### V BG #### Point of Care testing , VBG PH Venous PH 7.38 Normal 7.32-7.43 [facility] Comment on above: Performed By: #### V BG #### Point of Care testing , VBG PO2 32.0 mm[Hg] Low 35.0-45.0 [facility] Comment on above: Performed By: #### V BG #### Point of Care testing , CBC w/ Auto Diffon 5 Basophils/100 WBC (Bld) 0.9 % Normal 0.0-2.0 [facility] Comment on above: Performed By: #### 2 [id number] #### [facility] [address] [place] [address] Basophils/Leukocytes Auto (Bld) [Pure # fraction] 0.1 E9/L Normal 0.0-0.2 [facility] Comment on above: Performed By: #### 2 [id number] #### [facility] [address] [place] [address] Eosinophils (Bld) [#/Vol] 0.3 E9/L Normal 0.0-0.5 [facility] Comment on above: Performed By: #### 2 [id number] #### [facility] [address] [place] [address] Eosinophils/100 WBC (Bld) 4.2 % Normal 0.0-8.0 [facility] Comment on above: Performed By: #### 2 [id number] #### [facility] [address] [place] [address] Erythrocyte distribution width (RBC) [Ratio] 14.0 % Normal 10.9-14.2 [facility] Comment on above: Performed By: #### 2 [id number] #### [facility] [address] [place] [address] Hematocrit (Bld) [Volume fraction] 40.7 % Normal 37.7-49.0 [facility] Comment on above: Performed By: #### 2 [id number] #### [facility] [address] [place] [address] Hemoglobin (Bld) [Mass/Vol] 14.3 g/dL Normal 13.5-17.5 [facility] Comment on above: Performed By: #### 2 [id number] #### [facility] [address] [place] [address] Lymphocytes (Bld) [#/Vol] 1.9 E9/L Normal 1.0-4.0 [facility] Comment on above: Performed By: #### 2 [id number] #### [facility] [address] [place] [address] Lymphocytes/100 WBC (Bld) 26.6 % Normal 14.0-50.0 [facility] Comment on above: Performed By: #### 2 [id number] #### [facility] [address] [place] [address] MCH (RBC) [Entitic mass] 31.3 pg Normal 27.0-34.0 [facility] Comment on above: Performed By: #### 2 [id number] #### [facility] [address] [place] [address] MCHC (RBC) [Mass/Vol] 35.1 g/dL Normal 31.4-36.0 [facility] Comment on above: Performed By: #### 2 [id number] #### [facility] [address] [place] [address] MCV (RBC) [Entitic vol] 89.2 fL Normal 80.0-100.0 [facility] Comment on above: Performed By: #### 2 [id number] #### [facility] [address] [place] [address] Monocytes (Bld) [#/Vol] 0.5 E9/L Normal 0.2-1.0 [facility] Comment on above: Performed By: #### 2 [id number] #### [facility] [address] [place] [address] Neutrophils (Bld) [#/Vol] 4.4 E9/L Normal 2.0-7.5 [facility] Comment on above: Performed By: #### 2 [id number] #### [facility] [address] [place] [address] Neutrophils/100 WBC (Bld) 61.3 % Normal 36.0-75.0 [facility] Comment on above: Performed By: #### 2 [id number] #### [facility] [address] [place] [address] Platelet mean volume (Bld) [Entitic vol] 8.2 fL Normal 6.4-10.8 [facility] Comment on above: Performed By: #### 2 [id number] #### [facility] [address] [place] [address] Platelets (Bld) [#/Vol] 205.0 E9/L Normal 150.0-500.0 [facility] Comment on above: Performed By: #### 2 [id number] #### [facility] [address] [place] [address] RBC (Bld) [#/Vol] 4.6 E12/L Normal 4.3-5.9 [facility] Comment on above: Performed By: #### 2 [id number] #### [facility] [address] [place] [address] WBC corrected for nucl RBC Auto (Bld) [#/Vol] 7.1 E9/L Normal 4.0-11.0 [facility] Comment on above: Performed By: #### 2 [id number] #### [facility] [address] [place] [address] CHEMISTRYOrdered By: Lab ROP User on 12-21-2024 Glucose [Mass/Vol] 330 mg/dL High 55 - 99 mg/dL FTM C POC Subsection Comment on above: Result Comment: Pricila elbert Meter POC Username TATYANA CASAREZ Invalid Interpretation Code [facility] POC Subsection Sodium [Moles/Vol] 779927918940 mmol/L Invalid Interpretation Code [facility] POC Subsection Sodium [Moles/Vol] 059357868 mmol/L Invalid Interpretation Code [facility] POC Subsection Glucose [Mass/Vol] 483 mg/dL Invalid Interpretation Code 55 - 99 mg/dL [facility] POC Subsection Comment on above: Result Comment: Pricila elbert Meter POC Username TATYANA CASAREZ Invalid Interpretation Code [facility] POC Subsection Sodium [Moles/Vol] 412272061 mmol/L Invalid Interpretation Code [facility] POC Subsection Sodium [Moles/Vol] 391645864618 mmol/L Invalid Interpretation Code [facility] POC Subsection Glucose [Mass/Vol] 361 mg/dL High 55 - 99 mg/dL FTM C POC Subsection Comment on above: Result Comment: Pricila elbert Meter POC Username TATYANA CASAREZ Invalid Interpretation Code [facility] POC Subsection Sodium [Moles/Vol] 892600610 mmol/L Invalid Interpretation Code [facility] POC Subsection Sodium [Moles/Vol] 663823065531 mmol/L Invalid Interpretation Code [facility] POC Subsection CHEMISTRYOrdered By: SYSTEM SYSTEM on 12-21-2024 Albumin [Mass/Vol] 2.9 g/dL Low 3.3 - 5.0 gm/dL R emisol Chem Albumin/Globulin [Mass ratio] 1.1 {ratio} Normal 1.1 - 2.2 Remisol Chem ALP [Catalytic activity/Vol] 92 [iU]/d Normal 21 - 98 Int._Unit/L Remisol Chem ALT No additional P-5'-P [Catalytic activity/Vol] 16 [iU]/d Normal 6 - 46 Int._Unit/L Remisol Chem Anion gap [Moles/Vol] 11 mmol/L Normal 6 - 16 mEq/L Remisol Chem AST [Catalytic activity/Vol] 16 [iU]/d Normal 5 - 43 Int._Unit/L Remisol Chem Bilirubin [Mass/Vol] 0.6 mg/dL Normal 0.0 - 1.1 mg/dL Rem[facility] Chem Calcium [Mass/Vol] 8.1 mg/dL Low 8.9 - 11.1 mg/dL [facility] Chloride [Moles/Vol] 102 mmol/L Normal 101 - 111 mmol/ L Rem[facility] CO2 [Moles/Vol] 25 mmol/L Normal 21 - 31 mmol/L Remis ol Chem Creatinine [Mass/Vol] 1.7 mg/dL High 0.5 - 1.3 mg/dL Remisol Chem eGFR 44 mL/min/1.73 m2 Low >=59mL/min /1.73 m2 Rem[facility] Chem Globulin (S) [Mass/Vol] 2.7 g/dL Normal 1.4 - 4.0 gm/dL Rem[facility] Glucose [Mass/Vol] 307 mg/dL High 55 - 199 mg/dL Re misol Chem Potassium [Moles/Vol] 4.0 mmol/L Normal 3.5 - 5.3 mmol/L Remisol Chem Protein [Mass/Vol] 5.6 g/dL Low 6.0 - 7.8 gm/dL R emisol Chem Sodium [Moles/Vol] 134 mmol/L Low 135 - 145 mmol/L Remisol Chem Urea nitrogen [Mass/Vol] 46 mg/dL High 5 - 21 mg/dL Remisol Chem Urea nitrogen/Creatinine [Mass ratio] 27 mg/mg High 10 - 20 Remisol Chem CMPon 12-21-2024 Albumin [Mass/Vol] 2.9 g/dL Low 3.3-5.0 [facility] Comment on above: Performed By: #### 2 [id number] #### [facility] [address] [place] [address] Albumin/Globulin (S) [Mass conc ratio] 1.1 Normal 1.1-2.2 [facility] Comment on above: Performed By: #### 2 [id number] #### [facility] [address] [place] [address] ALP [Catalytic activity/Vol] 92 Int._Unit/L Normal 21-98 [facility] Comment on above: Performed By: #### 2 [id number] #### [facility] [address] [place] [address] ALT No additional P-5'-P [Catalytic activity/Vol] 16 Int._Unit/L Normal 6-46 [facility] Comment on above: Performed By: #### 2 [id number] #### [facility] [address] [place] [address] Anion gap [Moles/Vol] 11 mmol/L Normal 6-16 [facility] Comment on above: Performed By: #### 2 [id number] #### [facility] [address] [place] [address] AST [Catalytic activity/Vol] 16 Int._Unit/L Normal 5-43 [facility] Comment on above: Performed By: #### 2 [id number] #### [facility] [address] [place] [address] Bilirubin [Mass/Vol] 0.6 mg/dL Normal 0.0-1.1 [facility] Comment on above: Performed By: #### 2 [id number] #### [facility] [address] [place] [address] Calcium [Mass/Vol] 8.1 mg/dL Low 8.9-11.1 [facility] Comment on above: Performed By: #### 2 [id number] #### [facility] [address] [place] [address] Chloride [Moles/Vol] 102 mmol/L Normal 101-111 [facility] Comment on above: Performed By: #### 2 [id number] #### [facility] [address] [place] [address] CO2 [Moles/Vol] 25 mmol/L Normal 21-31 [facility] Comment on above: Performed By: #### 2 [id number] #### [facility] [address] [place] [address] Creatinine [Mass/Vol] 1.7 mg/dL High 0.5-1.3 [facility] Comment on above: Performed By: #### 2 [id number] #### [facility] [address] [place] [address] Globulin (S) [Mass/Vol] 2.7 g/dL Normal 1.4-4.0 [facility] Comment on above: Performed By: #### 2 [id number] #### [facility] [address] [place] [address] Glucose [Mass/Vol] 307 mg/dL High 55-199 [facility] Comment on above: Performed By: #### 2 [id number] #### [facility] [address] [place] [address] Potassium [Moles/Vol] 4.0 mmol/L Normal 3.5-5.3 [facility] Comment on above: Performed By: #### 2 [id number] #### [facility] [address] [place] [address] Protein [Mass/Vol] 5.6 g/dL Low 6.0-7.8 [facility] Comment on above: Performed By: #### 2 [id number] #### [facility] [address] [place] [address] Sodium [Moles/Vol] 134 mmol/L Low 135-145 [facility] Comment on above: Performed By: #### 2 484309 #### [facility] [address] [place] [address] Urea nitrogen [Mass/Vol] 46 mg/dL High 5-21 [facility] Comment on above: Performed By: #### 2 [id number] #### [facility] [address] [place] [address] Urea nitrogen/Creatinine [Mass ratio] 27 No Units High 10-20 [facility] Comment on above: Performed By: #### 2 [id number] #### [facility] [address] [place] [address] Capillary Glucose POCon 05-0 Glucose [Mass/Vol] 330 mg/dL High 55-99 [facility] Comment on above: Result Comment: Pricila elbert Meter Performed By: #### 2 [id number] #### [facility] [address] [place] [address] Glucose [Mass/Vol] 483 mg/dL Abnormal 55-99 [facility] Comment on above: Result Comment: Pricila elbert Meter Performed By: #### 2 [id number] #### [facility] [address] [place] [address] Glucose [Mass/Vol] 361 mg/dL High 55-99 [facility] Comment on above: Result Comment: Pricila elbert Meter Performed By: #### 2 [id number] #### [facility] [address] [place] [address] Glucose [Mass/Vol] 274 mg/dL High 55-99 [facility] Comment on above: Result Comment: Thelma maxwell RN/ Performed By: #### 2 [id number] #### [facility] [address] [place] [address] Glucose [Mass/Vol] 246 mg/dL High 55-99 [facility] Comment on above: Result Comment: Thelma maxwell RN/ Performed By: #### 2 [id number] #### [facility] [address] [place] [address] Glucose [Mass/Vol] 95 mg/dL Normal 55-99 [facility] Comment on above: Result Comment: Thelma BAE Performed By: #### 2 [id number] #### [facility] [address] [place] [address] Glucose [Mass/Vol] 91 mg/dL Normal 55-99 [facility] Comment on above: Performed By: #### 2 [id number] #### [facility] [address] [place] [address] ED Note-Physicianon 12-22-19 ED Note-Physician ED Note-Physician Basic Information Time Seen: Paddy Betancourt PA-C 12/20/2024 13:32 Chief Complaint pt. c/o L knee pain, seen here yesterday and left AMA. states he has not had insulin x 2 days d/t him not being able to find his bag of supplies. states he will stay for admission today. accu check in triage reads High. denies n/v/fever/chills. History of Present Illness 64-year-old male reports emergency department with concerns of left leg spasm, as well as high blood sugars. He reports that he was seen here yesterday, but signed leave AMA. Reports that he has been not been taking his insulin last 2 to 3 days because he cannot find his supplies. He reports that he would stay for admission today. He reports also having spasms of his left leg. Reports he was unable to fill his medications yesterday. Denies any other symptoms. No nausea or vomiting. States he is a type II diabetic. Denies any injury to his leg. Review of Systems No other aggravating or relieving factors no other associated symptoms no other prior treatments or complaints. Family: Reviewed and noncontributory Social: lives at home Review of systems negative unless otherwise specified in the HPI. Physical Exam Vitals & Measurements T: 37.0 ???C(Oral) HR: 76(Peripheral) RR: 18 BP: 141/78 SpO2: 95% HT: 182 cm WT: 118.4 kg BMI: 35.74 General: The patient appears well and in no apparent distress. Patient is resting comfortably on bed. Afebrile Skin: Warm, dry, no pallor noted. Head: Normocephalic, atraumatic Neck: No JVD Eye: PERRLA, EOMI ENT: Moist mucus membranes Cardiovascular: Regular rate. normal peripheral perfusion Respiratory: No respiratory distress. no accessory muscle use. no obvious audible wheezing Chest Wall: no deformity Musculoskeletal: normal ROM, no deformity, no swelling. No swelling or ecchymosis located of left lower extremity. No obvious injury. Pedal pulses are intact bilaterally. postsurgical changes of left foot. GI: No obvious distention Neurological: A&O. moves all extremities equal strength and symmetry Psychiatric: Cooperative and appropriate Medical Decision Making 64-year-old male reports emerged department with concerns of elevated blood sugars. Reports that he was seen here yesterday, but decided to leave AGAINST MEDICAL ADVICE. Reports his leg continues to have a spasms. Reports that he has not been taking his insulin because he cannot find his bag that has all of his insulin supplies. Denies any other complaints except the leg spasms today. No altered mental state. He concerns, we did do repeat of his lab work. His blood sugar did come back nearly at 900. No other acute abnormality except very mild AMY. He is not in DKA. His leg does continue to spasm. We did give him Valium for this, which did slightly help. Patient was given 2 L of fluid as well as 50 units of regular insulin, as that is what he is supposed to take, and I did discuss case with the hospitalist. Discussed with hospitalist who was agreeable with admission of the patient. Assessment/Plan 1. Hyperglycemia (R73.9: Hyperglycemia, unspecified) 2. Leg muscle spasm (M62.838: Other muscle spasm) 3. Noncompliance with medication regimen (Z91.148: Patient's other noncompliance with medication regimen for other reason) 4. AMY (acute kidney injury) (N17.9: Acute kidney failure, unspecified) 5. Acquired absence of other right toe(s) (Z89.421: Acquired absence of other right toe(s)) 6. Hyponatremia (E87.1: Hypo-osmolality and hyponatremia) 7. Obesity (E66.9: Obesity, unspecified) Orders: diazepam, 5 mg = 1 tab(s), Tab, Oral, Once, Stop date 12/20/24 14:27:00 EDT, STAT, Start date 12/20/24 14:27:00 EDT, 12/20/24 14:27:00 EDT doxycycline, 100 mg = 1 cap(s), Oral, BID, # 20 cap(s), Refills(s) 0, Pharmacy: [facility] #[id number], 183, cm, 06/23/24 13:45:00 EST, Height/Length Dosing, 143, kg, 06/23/24 13:45:00 EST, Weight Dosing insulin regular, 50 unit(s) = 0.5 mL, Injection-Insulin, SubCutaneous, Once, Stop date 12/20/24 15:33:00 EDT, STAT, Start date 12/20/24 15:33:00 EDT orphenadrine, 60 mg = 2 mL, Injection, IV Push, Once, Stop date 12/20/24 14:28:00 EDT, STAT, Start date 12/20/24 14:28:00 EDT, 12/20/24 14:28:00 EDT Sodium Chloride 0.9% intravenous solution, 1,000 mL, Soln-IV, IV, Once, Stop date 12/20/24 15:14:00 EDT, STAT, Start date 12/20/24 15:14:00 EDT, Infuse over 61, minute(s) Sodium Chloride 0.9% intravenous solution, 1,000 mL, Soln-IV, IV, Once, Stop date 12/20/24 13:48:00 EDT, STAT, Start date 12/20/24 13:48:00 EDT, Infuse over 61, minute(s) Basic Metabolic Panel Beta-hydroxybutyrate Blood Gas Art, with Lytes, Gluc, Lact CBC w/ Auto Diff ECG 12 Lead Adult ED Cardiac Monitoring ED Physician consult Hospitalist for continued care eGFR Extra Blue Tube Extra SST Tube Hepatic Function Panel Routine Capillary Glucose POC UA with Cult Rflx XR Chest Single View Medications Administered Given NS 1000 ml Bolus, 1000 mL, IV Dispos (more content not included)... Normal [facility] Comment on above: Result Comment: Elec tronically Signed By: Paddy Betancourt PA-C\.br\Date and Time Signed: 12/20/24 21:48 EDT\.br\Electronically Co-Signed By: Nicole Myers DO\.br\Date and Time Co-Signed: 12/21/24 07:09 EDT ED Note-Physician ED Note-Physician Basic Information Time Seen: Jesus Grijalva PA-C 12/19/2024 10:25 Chief Complaint c/o left leg pain and weakness, pt states gets intermittent muscle cramping behiond left knee for the past 3 days. History of Present Illness 64-year-old male comes to the ED for evaluation of muscle cramps. The patient presents complaining of muscle spasms to his left leg. He states he recently got fitted for orthotics, and believes that has caused spasms in his left leg. He presents via EMS. He does have a history of diabetes and they checked his blood sugar found to be elevated. He admits to not take his insulin for the last couple of days because he was not feeling well. He has no other specific complaint. Denies any fever chills nausea or vomiting. Denies any chest pain or shortness of breath denies any falls or injuries.. Review of Systems A 10 point review of systems is negative except as noted above. Medical and Surgical History: Reviewed and noted Social history: Lives at home Tobacco: Denies Physical Exam Vitals & Measurements T: 36.6 ???C(Oral) HR: 65(Monitored) RR: 18 BP: 145/77 SpO2: 95% HT: 183 cm WT: 110.8 kg BMI: 33.09 Nurses notes and vital signs reviewed and patient is not hypoxic. General: The patient appears well, resting comfortably. Skin: Warm, dry. Head: Atraumatic. Neck: No JVD. Eye: Normal conjunctiva. Ears, Nose, Mouth, and Throat: Moist mucous membranes. Cardiovascular: Strong distal pulses. Chest wall: Respiratory: Respirations are nonlabored. Back: Normal range of motion. Musculoskeletal: Bilateral lower extremities were evaluated. He has no acute soft tissue swelling ecchymosis or erythema to the extremities. He has good distal pulses. He does have postsurgical changes to the feet. Gastrointestinal: Urological: Neurological: Awake and alert. No focal deficits. Follows commands. Psychiatric: Cooperative. Medical Decision Making Patient presents with lower extremity muscular spasms. He was given Valium here with significant improvement. Laboratory studies are reviewed and noted. He has a significant hyperglycemia. This is discussed with him. Admission was recommended. The patient is refusing admission, and will leave AGAINST MEDICAL ADVICE. He states he has a sick family he has to attend to. He admits that he has not taken his insulin for the past several days. The need for good medication adherence was discussed. He was treated here with 2 L of IV fluid. Again admission was recommended again the patient refused. He is awake, alert, competent to make this decision. Understands risk and benefits. He is to follow-up with his PCP. Patient was encouraged to return to the ED if symptoms worsen or change. Critical Care Time: 40 minutes, critical care time is separate from any procedures that are performed. The following was considered in the determination of critical care but not limited to the level medical decision-making, intensive cardiac and/or respiratory monitor, frequent vital sign monitoring, evaluation of laboratory studies, evaluation of a radiographic studies, oxygen monitoring and constant monitoring. Assessment/Plan Hyperglycemia (R73.9: Hyperglycemia, unspecified) Muscle cramps (R25.2: Cramp and spasm) Orders: diazepam, 5 mg = 1 tab(s), Tab, Oral, Once, Stop date 12/19/24 10:59:00 EDT, STAT, Start date 12/19/24 10:59:00 EDT, 12/19/24 10:59:00 EDT methocarbamol, 750 mg = 1 tab(s), Oral, TID, X 3 day(s), # 9 tab(s), Refills(s) 0, Pharmacy: [facility] #[id number], 183, cm, 12/19/24 10:26:00 EDT, Height/Length Dosing, 110.8, kg, 12/19/24 10:26:00 EDT, Weight Dosing Sodium Chloride 0.9% intravenous solution, 1,000 mL, IV, Stop date 12/19/24 12:55:00 EDT, Start date 12/19/24 12:55:00 EDT Sodium Chloride 0.9% intravenous solution, 1,000 mL, Soln-IV, IV, Once, Stop date 12/19/24 11:00:00 EDT, STAT, Start date 12/19/24 11:00:00 EDT, Infuse over 61, minute(s) Basic Metabolic Panel Beta-hydroxybutyrate CBC w/ Auto Diff ED Cardiac Monitoring eGFR Extra Blue Tube Extra SST Tube Hepatic Function Panel Routine Capillary Glucose POC XR Chest Single View Medications Administered Given NS 1000 ml Bolus, 1000 mL, IV [id number] [F], 1000 mL, IV Valium 5 mg Tab, 5 mg, Oral Disposition Plan Patient Discharge Condition Disposition: Discharged home Condition: Improved and stable Counseled: Patient and/or family were counseled to workup, results, treatment plan and follow-up recommendations Discharge Prescription List Prescriptions Robaxin-750 oral tablet, 750 mg= 1 tab(s), Oral, TID Follow-up With When Contact Information Mounika Brooke In 3 days 12/22/[address] [place] [address]- Business (1) Additional Instructions: Patient Education Hyperglycemia Attestation I performed a substantive part of the MDM during the patient???s E/M visit. I personally made or approved the documented management plan and acknowledge its r (more content not included)... Normal [facility] Comment on above: Result Comment: Elec tronically Signed By: Jesus Grijalva PA-C\.br\Date and Time Signed: 12/19/24 18:08 EDT\.br\Electronically Co-Signed By: Corky Luo MD\.br\Date and Time Co-Signed: 12/21/24 02:21 EDT HEMATOLOGYOrdered By: SYSTEM SYSTEM on 12-21-2024 Basophils/100 WBC (Bld) 0.9 % Normal 0.0 - 2.0 % Remisol Heme Basophils/Leukocytes Auto (Bld) [Pure # fraction] 0.1 E9/L Normal 0.0 - 0.2 E9/L Remisol Heme Eosinophils (Bld) [#/Vol] 0.3 E9/L Normal 0.0 - 0.5 E9/L Remisol Heme Eosinophils/100 WBC (Bld) 4.2 % Normal 0.0 - 8.0 % Remisol Heme Erythrocyte distribution width (RBC) [Ratio] 14.0 % Normal 10.9 - 14.2 % Remisol Heme Hematocrit (Bld) [Volume fraction] 40.7 % Normal 37.7 - 49.0 % Remisol Heme Hemoglobin (Bld) [Mass/Vol] 14.3 g/dL Normal 13.5 - 17.5 gm/dL Remisol Heme Lymphocytes (Bld) [#/Vol] 1.9 E9/L Normal 1.0 - 4.0 E9/L Remisol Heme Lymphocytes/100 WBC (Bld) 26.6 % Normal 14.0 - 50.0 % Remisol Heme MCH (RBC) [Entitic mass] 31.3 pg Normal 27.0 - 34.0 pg Remisol Heme MCHC (RBC) [Mass/Vol] 35.1 g/dL Normal 31.4 - 36.0 gm/dL Remisol Heme MCV (RBC) [Entitic vol] 89.2 fL Normal 80.0 - 100.0 fL Remisol Heme Monocytes (Bld) [#/Vol] 0.5 E9/L Normal 0.2 - 1.0 E9/L Remisol Heme Monocytes/100 WBC (Bld) 7.0 % Normal 4.0 - 14.0 % Remisol Heme Neutrophils (Bld) [#/Vol] 4.4 E9/L Normal 2.0 - 7.5 E9/L Remisol Heme Neutrophils/100 WBC (Bld) 61.3 % Normal 36.0 - 75.0 % Remisol Heme Platelet mean volume (Bld) [Entitic vol] 8.2 fL Normal 6.4 - 10.8 fL Remisol Heme Platelets (Bld) [#/Vol] 205.0 E9/L Normal 150.0 - 500.0 E9/L Remisol Heme RBC (Bld) [#/Vol] 4.6 E12/L Normal 4.3 - 5.9 E12/L Re misol Heme WBC corrected for nucl RBC Auto (Bld) [#/Vol] 7.1 E9/L Normal 4.0 - 11.0 E9/L Remisol Heme Inpatient Patient Summaryon 12-21-2024 Inpatient Patient Summary Inpatient Patient Summary GENO NICOLE Jesus :1960 Visit Date:12/20/2024 Inpatient Discharge Instructions Your Care Team Admitting Physician - Toni Gutierrez III, DO Reason for Your Visit hyperglycemia, left knee pain Your Diagnosis Hyperglycemia Leg muscle spasm Noncompliance with medication regimen AMY (acute kidney injury) Acquired absence of other right toe(s) Hyponatremia Obesity Diabetes mellitus with neuropathy Long-term insulin use Hyperglycemia Hypertension Knee pain-swelling Tests Performed XR Chest Single View This Is Your Medications List Misc Prescription (Glucose Kit) Misc Prescription (Pen Needle 31G x 6mm) gabapentin (gabapentin 600 mg Tab) insulin regular (HumuLIN R KwikPen (Concentrated) human recombinant 500 units/mL subcutaneous solution) losartan (losartan 50 mg Tab) methocarbamol (Robaxin-750 oral tablet) Procedure History Cataract extraction and insertion of intraocular lens (10/24/2017), Cataract extraction and insertion of intraocular lens (09/19/2017), Incision AND drainage (05/31/2017), Split-thickness skin graft (04/12/2017), surgical preparation of left foot ulceration for skin grafting with versajet and application of stravix skin graft to left foot ulcer (02/01/2017), left foot TMA with packing, partial closure (04/13/2015), delayed secondary closure of the left foot wound with VersaJet debridement as well as pulse lavage. excision of ulceration to the plantar left foot with single lobe rotation skin plasty flap for closure (04/10/2015), left transmetatarsal amputation with partial closure with iodoform gauze packing. incision and drainage of left infected foot with Pulsavac and pulse lavage (04/08/2015), aggressive wound debridement to right subfourth metatarsal head ulceration with Versa jet sharp debridement as well as application of Dermagraft (07/23/2014), left incision and drainage of foot abscess with wound cultures as well as partial fifth ray amputation with digit, left foot, with pulsed lavage (10/16/2013), Umbilical Hernia Repair. Discharge Vitals Temperature (Oral) 36.6 ???C Heart Rate (Monitored) 80 Respiratory Rate 16 Blood Pressure 145/78 Height 182 cm Weight 118.4 kg BMI 35.74 What to do next Instructions From Your Doctor Event Name Event Result Discharge Activity Ambulate as tolerated Discharge Diet(s) Regular Pending Diagnostic Test Results None Discharge Instructions Follow up closely with your customer assistant. Return to ER if symptoms return or worsen. Do not start tradjenta prescribed by your customer assistant until you speak ask him it if is safe with your insulin. Can cause lows together. New Follow Up Appointments after Discharge Follow Up with KAYLA SWEENEY When: Comments: Follow as scheduled in December 2024 Where: [address] [place] [address]- Business (1) Follow Up with Mounika Brooke When: Within 7 to 10 days Comments: Call for followup appointment Where: [address] [place] [address]- Business (1) Medications What How Much When Why Instructions Next Dose New losartan (losartan 50 mg Tab) 1 Tablets By Mouth Every day Hypertension Refills: 1 Pickup at [facility] #[id number] 12/22 @ 0900am [facility] Prescription (Glucose Kit) See instructions Hyperglycemia Glucose meter. Include autolet, matching test strips, lancets, & alcohol wipes, #100 or as allowed by insurance; DX: E11.9 Pickup at [facility] #[id number] [facility] Prescription (Pen Needle 31G x 6mm) See instructions Hyperglycemia Refills: 1 Pen Needle 31G x 6mm Pickup at [facility] #[id number] Changed insulin regular (HumuLIN R KwikPen (Concentrated) human recombinant 500 units/ mL subcutaneous solution) See instructions Diabetes mellitus with neuropathy inject 40 units under the skin in the morning, 40 in the evening and 20 at bedtime. Pickup at [facility] #[id number] 12/21 @ 0800pm Unchanged gabapentin (gabapentin 600 mg Tab) 1 Tablets By Mouth 3 times a day resume Unchanged methocarbamol (Robaxin-750 oral tablet) 1 Tablets By Mouth 3 times a day Duration: 3 Days resume Pharmacy Information [facility] #[id number]: [address] [place], [place] [id number] [phone] Test Results CBC BMP WBC: 7.1 E9/L (12/21/24 05:04:00) Glucose Lvl: 307 mg/dL High (12/21/24 05:04:00) RBC: 4.6 E12/L (12/21/24 05:04:00) BUN: 46 mg/dL High (12/21/24 05:04:00) HGB: 14.3 gm/dL (12/21/24 05:04:00) Creatinine: 1.7 mg/dL High (12/21/24 05:04:00) Hct: 40.7 % (12/21/24 05:04:00) BUN/Creat Ratio: 27 High (12/21/24 05:04:00) MCV: 89.2 fL (12/21/24 05:04:00) Sodium Lvl: 134 mmol/L Low (12/21/24 05:04:00) MCH: 31.3 pg (12/21/24 05:04:00) Potassium Lvl: 4 mmol/L (12/21/24 05:04:00) MCHC: 35.1 gm/dL (12/21/24 05:04:00) Chloride: 102 mmol/L (12/21/24 05:04:00) RDW: 14 % (12/21/24 05:04:00) CO2: 25 mmol/L (12/21/24 05:04: (more content not included)... Normal [facility] eGFRon 12-21-2024 eGFR 44 mL/min/1.73 m2 Low >=59 [facility] Comment on above: Performed By: #### 1 [id number] #### [facility] [address] [place] [address] BMPon 12-20-2024 Glucose [Mass/Vol] 792 mg/dL Abnormal 55-199 [facility] Comment on above: Result Comment: Crit ical Result [id number] Called to and read back by: PADDY BETANCOURT at: 12/20/2024 15:01:20 by:[email or web address] Critical Result Verified by Repeat Analysis Performed By: #### 2 [id number] #### [facility] [address] [place] [address] Anion gap [Moles/Vol] 16 mmol/L Normal 6-16 [facility] Comment on above: Performed By: #### 2 [id number] #### [facility] [address] [place] [address] Creatinine [Mass/Vol] 1.9 mg/dL High 0.5-1.3 [facility] Comment on above: Performed By: #### 2 [id number] #### [facility] [address] [place] [address] Urea nitrogen [Mass/Vol] 52 mg/dL High 5-21 [facility] Comment on above: Performed By: #### 2 [id number] #### [facility] [address] [place] [address] Urea nitrogen/Creatinine [Mass ratio] 27 No Units High 10-20 [facility] Comment on above: Performed By: #### 2 [id number] #### [facility] [address] [place] [address] Calcium [Mass/Vol] 8.8 mg/dL Low 8.9-11.1 [facility] Comment on above: Performed By: #### 2 [id number] #### [facility] [address] [place] [address] Chloride [Moles/Vol] 88 mmol/L Low 101-111 [facility] Comment on above: Performed By: #### 2 [id number] #### [facility] [address] [place] [address] CO2 [Moles/Vol] 24 mmol/L Normal 21-31 [facility] Comment on above: Performed By: #### 2 [id number] #### [facility] [address] [place] [address] Potassium [Moles/Vol] 5.0 mmol/L Normal 3.5-5.3 [facility] Comment on above: Performed By: #### 2 [id number] #### [facility] [address] [place] [address] Sodium [Moles/Vol] 123 mmol/L Low 135-145 [facility] Comment on above: Performed By: #### 2 [id number] #### [facility] [address] [place] [address] BOHBon 12-20-2024 Beta HB Qnt 2.86 mmol/L High 0.02-0.27 [facility] Comment on above: Performed By: #### 2 [id number] #### [facility] [address] [place] [address] Blood Gas Art, with Lytes, G hugh, [place] 12-20-2024 a/A Ratio Art 63.60 % Normal >=0.80 [facility] Comment on above: Performed By: #### 4 [id number] #### [facility] [address] [place] [address] AaDO2 Art 36.1 mmHg High 5.0-15.0 [facility] Comment on above: Performed By: #### 4 [id number] #### [facility] [address] [place] [address] Allens Test Positive Normal [facility] Comment on above: Performed By: #### 4 [id number] #### [facility] [address] [place] [address] Base Excess Arterial -2.8 mmol/L Low >=2.8 [facility] Comment on above: Performed By: #### 4 [id number] #### [facility] [address] [place] [address] cCa2+ Art 4.78 mg/dL Normal 4.40-5.30 [facility] Comment on above: Performed By: #### 4 [id number] #### [facility] [address] [place] [address] cCl- Art 92.0 mmol/L Low 101.0-111.0 [facility] Comment on above: Performed By: #### 4 [id number] #### [facility] [address] [place] [address] cGlu Art 749 mg/dL Abnormal 55-99 [facility] Comment on above: Result Comment: Resu lts Called To NICOLE YOLANDE By ASHLEY TUBBS12/20/2024 14:12:32 EDT And Read Back For Confirmation On _. Performed By: #### 4 [id number] #### [facility] [address] [place] [address] cK+ Art 4.5 mmol/L Normal 3.5-5.3 [facility] Comment on above: Performed By: #### 4 [id number] #### [facility] [address] [place] [address] cLac Art .8 mmol/L Normal .5-2.2 [facility] Comment on above: Performed By: #### 4 [id number] #### [facility] [address] [place] [address] smudger+ Art 125.0 mmol/L Low 135.0-145.0 [facility] Comment on above: Performed By: #### 4 [id number] #### [facility] [address] [place] [address] Drawn by DCC Invalid Interpretation Code [facility] Comment on above: Performed By: #### 4 [id number] #### [facility] [address] [place] [address] FCOHb Art 2.1 % Normal 1.5-4.9 [facility] Comment on above: Result Comment: Refe rence range Nonsmoker <1.5% Smoker <5.0% Heavy Smoker <9.0% Performed By: #### 4 [id number] #### [facility] [address] [place] [address] FIO2 BG 21 Invalid Interpretation Code [facility] Comment on above: Performed By: #### 4 [id number] #### [facility] [address] [place] [address] FO2Hb Art 91.9 % Low 93.0-100.0 [facility] Comment on above: Performed By: #### 4 [id number] #### [facility] [address] [place] [address] HCO3 (Bld) [Moles/Vol] 22.0 mmol/L Normal 22.0-26.0 [facility] Comment on above: Performed By: #### 4 [id number] #### [facility] [address] [place] [address] Hemoglobin (Bld) [Mass/Vol] 15.4 g/dL Normal 12.0-17.0 [facility] Comment on above: Performed By: #### 4 [id number] #### [facility] [address] [place] [address] Oxygen saturation in Blood 93.9 % Low 95.0-100.0 [facility] Comment on above: Performed By: #### 4 [id number] #### [facility] [address] [place] [address] P CO2 Arterial 40.0 mmHg Normal 35.0-45.0 [facility] Comment on above: Performed By: #### 4 [id number] #### [facility] [address] [place] [address] P O2 Arterial 63.1 mmHg Low 80.0-100.0 [facility] Comment on above: Performed By: #### 4 [id number] #### [facility] [address] [place] [address] pH Arterial 7.358 Normal 7.350-7.450 [facility] Comment on above: Performed By: #### 4 [id number] #### [facility] [address] [place] [address] Sample Site R Radial Normal [facility] Comment on above: Performed By: #### 4 [id number] #### [facility] [address] [place] [address] Sample Type Arterial Draw Normal [facility] Comment on above: Performed By: #### 4 [id number] #### [facility] [address] [place] [address] CBC w/ Auto Diffon 5 Basophils/100 WBC (Bld) 1.1 % Normal 0.0-2.0 [facility] Comment on above: Performed By: #### 2 [id number] #### [facility] [address] [place] [address] Basophils/Leukocytes Auto (Bld) [Pure # fraction] 0.1 E9/L Normal 0.0-0.2 [facility] Comment on above: Performed By: #### 2 [id number] #### [facility] [address] [place] [address] Eosinophils (Bld) [#/Vol] 0.2 E9/L Normal 0.0-0.5 [facility] Comment on above: Performed By: #### 2 [id number] #### [facility] [address] [place] [address] Eosinophils/100 WBC (Bld) 3.8 % Normal 0.0-8.0 [facility] Comment on above: Performed By: #### 2 [id number] #### [facility] [address] [place] [address] Erythrocyte distribution width (RBC) [Ratio] 13.6 % Normal 10.9-14.2 [facility] Comment on above: Performed By: #### 2 [id number] #### [facility] [address] [place] [address] Hematocrit (Bld) [Volume fraction] 46.1 % Normal 37.7-49.0 [facility] Comment on above: Performed By: #### 2 [id number] #### [facility] [address] [place] [address] Hemoglobin (Bld) [Mass/Vol] 15.6 g/dL Normal 13.5-17.5 [facility] Comment on above: Performed By: #### 2 [id number] #### [facility] [address] [place] [address] Lymphocytes (Bld) [#/Vol] 1.3 E9/L Normal 1.0-4.0 [facility] Comment on above: Performed By: #### 2 [id number] #### [facility] [address] [place] [address] Lymphocytes/100 WBC (Bld) 21.6 % Normal 14.0-50.0 [facility] Comment on above: Performed By: #### 2 [id number] #### [facility] [address] [place] [address] MCH (RBC) [Entitic mass] 30.9 pg Normal 27.0-34.0 [facility] Comment on above: Performed By: #### 2 [id number] #### [facility] [address] [place] [address] MCHC (RBC) [Mass/Vol] 33.9 g/dL Normal 31.4-36.0 [facility] Comment on above: Performed By: #### 2 [id number] #### [facility] [address] [place] [address] MCV (RBC) [Entitic vol] 91.3 fL Normal 80.0-100.0 [facility] Comment on above: Performed By: #### 2 [id number] #### [facility] [address] [place] [address] Monocytes (Bld) [#/Vol] 0.6 E9/L Normal 0.2-1.0 [facility] Comment on above: Performed By: #### 2 [id number] #### [facility] [address] [place] [address] Neutrophils (Bld) [#/Vol] 4.0 E9/L Normal 2.0-7.5 [facility] Comment on above: Performed By: #### 2 [id number] #### [facility] [address] [place] [address] Neutrophils/100 WBC (Bld) 64.6 % Normal 36.0-75.0 [facility] Comment on above: Performed By: #### 2 [id number] #### [facility] [address] [place] [address] Platelet mean volume (Bld) [Entitic vol] 8.0 fL Normal 6.4-10.8 [facility] Comment on above: Performed By: #### 2 [id number] #### [facility] [address] [place] [address] Platelets (Bld) [#/Vol] 190.0 E9/L Normal 150.0-500.0 [facility] Comment on above: Performed By: #### 2 [id number] #### [facility] [address] [place] [address] RBC (Bld) [#/Vol] 5.1 E12/L Normal 4.3-5.9 [facility] Comment on above: Performed By: #### 2 [id number] #### [facility] [address] [place] [address] WBC corrected for nucl RBC Auto (Bld) [#/Vol] 6.2 E9/L Normal 4.0-11.0 [facility] Comment on above: Performed By: #### 2 [id number] #### [facility] [address] [place] [address] CHEMISTRYOrdered By: SYSTEM SYSTEM on 12-20-2024 Albumin [Mass/Vol] 3.5 g/dL Normal 3.3 - 5.0 gm/dL R emisol Chem Albumin/Globulin [Mass ratio] 1.1 {ratio} Normal 1.1 - 2.2 Rem[facility] Chem ALP [Catalytic activity/Vol] 156 [iU]/d High 21 - 98 Int._Unit/L [facility] Chem ALT No additional P-5'-P [Catalytic activity/Vol] 22 [iU]/d Normal 6 - 46 Int._Unit/L [facility] Chem Anion gap [Moles/Vol] 16 mmol/L Normal 6 - 16 mEq/L [facility] Chem AST [Catalytic activity/Vol] 18 [iU]/d Normal 5 - 43 Int._Unit/L [facility] Chem Beta HB Qnt 2.86 mmol/L High 0.02 - 0.27 mmol/L [facility] Chem Bilirubin [Mass/Vol] 0.9 mg/dL Normal 0.0 - 1.1 mg/dL Remisol Chem Bilirubin.direct [Mass/Vol] 0.1 mg/dL Normal 0.0 - 0.4 mg/dL Remisol Chem Bilirubin.indirect [Mass or moles/Vol] 0.8 mg/dL Normal 0.1 - 0.9 mg/dL [facility] Chem Calcium [Mass/Vol] 8.8 mg/dL Low 8.9 - 11.1 mg/dL [facility] Chem Chloride [Moles/Vol] 88 mmol/L Low 101 - 111 mmol/ L [facility] Chem CO2 [Moles/Vol] 24 mmol/L Normal 21 - 31 mmol/L Remis ol Chem Creatinine [Mass/Vol] 1.9 mg/dL High 0.5 - 1.3 mg/dL [facility] Chem eGFR 38 mL/min/1.73 m2 Low >=59mL/min /1.73 m2 [facility] Chem Globulin (S) [Mass/Vol] 3.3 g/dL Normal 1.4 - 4.0 gm/dL [facility] Glucose [Mass/Vol] 792 mg/dL Invalid Interpretation Code 55 - 199 mg/dL [facility] Comment on above: Result Comment: Crit ical Result [id number] Called to and read back by: PADDY BETANCOURT at: 12/20/2024 15:01:20 by:[email or web address] Critical Result Verified by Repeat Analysis Potassium [Moles/Vol] 5.0 mmol/L Normal 3.5 - 5.3 mmol/L [facility] Chem Protein [Mass/Vol] 6.8 g/dL Normal 6.0 - 7.8 gm/dL R emisol Chem Sodium [Moles/Vol] 123 mmol/L Low 135 - 145 mmol/L Remisol Chem Urea nitrogen [Mass/Vol] 52 mg/dL High 5 - 21 mg/dL Remisol Chem Urea nitrogen/Creatinine [Mass ratio] 27 mg/mg High 10 - 20 Remisol Chem Capillary Glucose POCon 05-0 Glucose [Mass/Vol] 180 mg/dL High 55-99 [facility] Comment on above: Result Comment: Thelma BAE Performed By: #### 2 [id number] #### [facility] [address] [place] [address] Glucose [Mass/Vol] 478 mg/dL Abnormal 55-99 [facility] Comment on above: Result Comment: Thelma BAE Performed By: #### 2 [id number] #### [facility] [address] [place] [address] Glucose [Mass/Vol] 476 mg/dL Abnormal 55-99 [facility] Comment on above: Result Comment: Thelma BAE Performed By: #### 2 [id number] #### [facility] [address] [place] [address] Glucose [Mass/Vol] mg/dL Abnormal 55-99 [facility] Comment on above: Result Comment: Thelma BAE Performed By: #### 2 [id number] #### [facility] [address] [place] [address] Glucose [Mass/Vol] mg/dL Abnormal 55-99 [facility] Comment on above: Result Comment: Thelma BAE Performed By: #### 2 [id number] #### [facility] [address] [place] [address] Glucose [Mass/Vol] mg/dL Abnormal 55-99 [facility] Comment on above: Performed By: #### 2 [id number] #### [facility] [address] [place] [address] ED Clinical Summaryon 2024 ED Clinical Summary ED Clinical Summary [address] [address] ED Clinical Summary Person Information Name: NICOLE LORA[place] Age: 64 Years : 1960 Sex: Male Language: Palauan PCP: Mounika Brooke MD Marital Status: Phone: [phone] Visit Id: Visit Reason: Knee pain-swelling; Hyperglycemia; L KNEE PAIN Speciality: Acuity: 3 Enc Type: Observation Med Service: Medical Arrival: 12/20/2024 13:29:49 Discharge: LOS: 000 05:27 Checkin: 12/20/2024 13:29:49 Checkout: 12/20/2024 18:56:56 Dispo Type: Admitted as IP to this [facility] EVENTS: Event Name Event Status Request Date/Time Start Date/Time Complete Date/Time Arrive Complete 12/20/2024 13:29:49 12/20/2024 13:29:49 12/20/2024 13:29:49 Document Home Meds Complete 12/20/2024 13:29:49 12/20/2024 15:10:36 12/20/2024 15:10:36 Triage Complete 12/20/2024 13:29:49 12/20/2024 13:40:54 12/20/2024 13:40:54 Bed Assign Complete 12/20/2024 13:29:49 12/20/2024 13:29:49 12/20/2024 13:29:49 Dr Exam Complete 12/20/2024 13:29:49 12/20/2024 13:32:07 12/20/2024 13:32:07 RN Exam Complete 12/20/2024 13:29:49 12/20/2024 13:47:11 12/20/2024 13:47:11 Registration Complete 12/20/2024 13:32:07 12/20/2024 13:47:11 12/20/2024 13:47:11 Isolation Screening Request 12/20/2024 13:40:55 Reg Complete Request 12/20/2024 13:47:11 Reg Bed Request Complete 12/20/2024 13:47:11 12/20/2024 13:47:11 12/20/2024 13:47:11 Dr Exam Complete 12/20/2024 13:48:29 12/20/2024 13:48:29 12/20/2024 13:48:29 Registration Complete 12/20/2024 13:48:29 12/20/2024 18:43:20 12/20/2024 18:43:20 EKG Complete 12/20/2024 13:49:34 12/20/2024 14:04:25 Meds Admin Complete 12/20/2024 13:49:34 12/20/2024 14:20:52 Pending Labs Complete 12/20/2024 13:49:34 12/20/2024 16:56:33 RT Tx/ABG Request 12/20/2024 13:49:34 Lab Complete 12/20/2024 13:49:34 12/20/2024 15:02:15 X-Ray Complete 12/20/2024 13:49:34 12/20/2024 14:17:39 12/20/2024 14:35:53 Pending Labs Complete 12/20/2024 14:04:48 12/20/2024 14:04:48 12/20/2024 14:39:26 Lab Complete 12/20/2024 14:04:48 12/20/2024 14:04:48 12/20/2024 14:39:26 Meds Admin Complete 12/20/2024 14:29:23 12/20/2024 14:56:52 Wet Read Request 12/20/2024 14:35:53 Meds Admin Complete 12/20/2024 15:14:30 12/20/2024 16:08:13 Pending Labs Complete 12/20/2024 15:15:18 12/20/2024 15:15:18 12/20/2024 15:15:19 Consult Request 12/20/2024 15:31:46 Hospitalist Consult Request 12/20/2024 15:31:46 Meds Admin Complete 12/20/2024 15:33:47 12/20/2024 16:08:13 Pending Labs Complete 12/20/2024 16:08:18 12/20/2024 16:08:18 12/20/2024 16:08:18 Pending Labs Complete 12/20/2024 16:34:10 12/20/2024 16:34:10 12/20/2024 16:34:10 Pending Labs Complete 12/20/2024 17:14:55 12/20/2024 17:14:55 12/20/2024 17:14:55 Observation Request 12/20/2024 18:10:10 Patient Care Request 12/20/2024 18:10:10 Patient Care Request 12/20/2024 18:10:11 Patient Care Request 12/20/2024 18:10:11 Medicare Form Complete 12/20/2024 18:10:12 12/20/2024 18:43:26 Patient Care Request 12/20/2024 18:10:13 Patient Care Request 12/20/2024 18:10:13 Pending Labs Request 12/20/2024 18:10:34 Lab Request 12/20/2024 18:10:34 Patient Care Request 12/20/2024 18:11:56 Meds Admin Request 12/20/2024 18:11:56 Meds Admin Request 12/20/2024 18:15:34 Pending Labs Complete 12/20/2024 18:35:13 12/20/2024 18:35:13 12/20/2024 18:35:14 ADDRESS: [address] [place] [phone] [facility] DOC NOTES: MEDICAL INFORMATION: Prescriptions Given: Medications to Continue with No Changes Other Medications gabapentin (gabapentin 600 mg Tab) 1 Tablets By Mouth 3 times a day. insulin regular (HumuLIN R KwikPen (Concentrated) human recombinant 500 units/mL subcutaneous solution) 50 Units Subcutaneous three times a day (with meals). methocarbamol (Robaxin-750 oral tablet) 1 Tablets By Mouth 3 times a day for 3 Days. Refills: 0. PATIENT EDUCATION INFORMATION: Instructions: Follow up: DIAGNOSIS: 1:Hyperglycemia; 2:Leg muscle spasm; 3:Noncompliance with medication regimen; 4:AMY (acute kidney injury); 5:Acquired absence of other right toe(s); 6:Hyponatremia; 7:Obesity Normal [facility] ED Patient Education Noteon 12-20-2024 ED Patient Education Note ED Patient Education Note Normal [facility] ED Patient Summaryon 025 ED Patient Summary ED Patient Summary [place] [id number] Patient Discharge Instructions Person Information Name: NICOLE LORA Age: 64 Years Arrival Date: 12/20/2024 13:29:49 Discharge Diagnosis: 1:Hyperglycemia; 2:Leg muscle spasm; 3:Noncompliance with medication regimen; 4:AMY (acute kidney injury); 5:Acquired absence of other right toe(s); 6:Hyponatremia; 7:Obesity Primary Care Physician: Mendy LYMAN, Mounika Lugo Provider Information Primary Provider: Nicole Myers DO Advanced Steward[employer] Car:Paddy Betancourt PA-C. The exam and treatment you received in the Emergency Department were for an urgent problem and are not intended as complete care. It is important that you follow up with a doctor, nurse practitioner, or physician???s preschool assistant director for ongoing care. If your symptoms become worse or you do not improve as expected and you are unable to reach your usual health care provider, you should return to the Emergency Department. We are available 24 hours a day. NICOLE LORA has been given the following list of patient education materials, prescriptions and follow-up instructions: Follow-up Instructions: In the event that this physician does not participate in your insurance network, please consult with your insurance company to find a nearby participating provider. Patient Education Materials: A MESSAGE TO ALL PATIENTS REGARDING OPIOIDS PRESCRIPTION OPIOIDS: WHAT YOU NEED TO KNOW Prescription opioids can be used to help relieve xydhoiaz-hr-cdcyqf pain and are often prescribed following a surgery or injury, or for certain health conditions. These medications can be an important part of the treatment but also come with serious risks. It is important to work with your healthcare provider to make sure you are getting the safest, most effective care. WHAT ARE THE RISKS AND SIDE EFFECTS OF OPIOID USE? Prescription opioids carry serious risks of addiction and overdose, especially with prolonged use. An opioid overdose, often marked by slowed breathing, can cause sudden . The use of prescription opioids can have a number of side effects as well, even when taken as directed: ??? Tolerance???meaning you might need to take more of the medication for the same pain relief ??? Physical dependence???meaning you have symptoms of withdrawal when a medication is stopped ??? Increased sensitivity to pain ??? Constipation ??? Nausea, vomiting, and dry mouth ??? Sleepiness and dizziness ??? Confusion ??? Depression ??? Low levels of testosterone that can result in lower sex drive, energy, and strength ??? Itching and sweating RISKS ARE GREATER WITH: ??? History of drug misuse, substance use disorder, or overdose ??? Mental health conditions (such as depression or anxiety) ??? Sleep apnea ??? Older age (65 years and older) ??? Avoid alcohol while taking prescription opioids. Also, unless specifically advised by your health care provider, medications to avoid include: ??? Benzodiazepines (such as Xanax or Valium) ??? Muscle relaxants (such as Soma or Flexeril) ??? Hypnotics (such as Ambien or Lunesta) ??? Other prescription opioids KNOW YOUR OPTIONS Talk to your health care provider about ways to manage your pain that don???t involve prescription opioids. Some of these options may actually work better and have fewer risks and side effects. Options may include: ??? Pain relievers such as acetaminophen, ibuprofen, and naproxen ??? Some medication that are also used for depression or seizures ??? Physical therapy and exercise ??? Cognitive behavioral therapy, a psychological, goal-directed approach, in which patients learn how to modify physical, behavioral, and emotional triggers of pain and stress. IF YOU ARE PRESCRIBED OPIOIDS FOR PAIN: ??? Never take opioids in greater amounts or more often than prescribed. ??? Follow up with your primary health care provider. o Work together to create a plan on how to manage your pain. o Talk about ways to help manage your pain that don???t involve prescription opioids. o Talk about any and all concerns and side effects. ??? Help prevent misuse and abuse o Never sell or share prescription opioids. o Never use another person???s prescription opioids. ??? Store prescription opioids in a secure place and out of reach of others (this may include visitors, children, friends, and family). ??? Safely dispose of unused prescription opioids: Find your community drug take-back program or your pharmacy mail-back program, or flush them down the toilet, following guidance from the Food and Drug Administration (www.fda.gov/Drugs/Re sourcesForYou). ??? Visit www.cdc.gov/drugoverd ose to learn about the risks of opioids abuse and overdose. ??? If you believe you may be struggling with addiction, tell your health doggy daycare activities director and ask for (more content not included)... Normal [facility] Extra Blueon 12-20-2024 Tube Collected Plasma Yes Invalid Interpretation Code [facility] Comment on above: Performed By: #### 1 [id number] #### [facility] [address] [place] [address] Blood GasesOrdered By: Akash Tubbs on 12-20-2024 a/A Ratio Art 63.60 % Normal >=0.80% [facility] Resp Auto SS AaDO2 Art 36.1 mm[Hg] High 5.0 - 15.0 mmHg [facility] Res p Auto SS Allens Test Positive (12/20/24 2:09 PM) Normal [facility] Resp Auto SS Base Excess Arterial -2.8 mmol/L Low >=2.8mmol/L FT Resp Auto SS cCa2+ Art 4.78 mg/dL Normal 4.40 - 5.30 mg/dL [facility] Re sp Auto SS cCl- Art 92.0 mmol/L Low 101.0 - 111.0 mmol/L [facility] Resp Auto SS cGlu Art 749 mg/dL Invalid Interpretation Code 55 - 99 mg/dL [facility] Resp Auto SS Comment on above: Result Comment: Resu lts Called To NICOLE MYERS By ASHLEY TUBBS12/20/2024 14:12:32 EDT And Read Back For Confirmation On _. cK+ Art 4.5 mmol/L Normal 3.5 - 5.3 mmol/L [facility] Res p Auto SS cLac Art 0.8 mmol/L Normal 0.5 - 2.2 mmol/L [facility] Res p Auto SS smudger+ Art 125.0 mmol/L Low 135.0 - 145.0 mmol/L [facility] Resp Auto SS Drawn by [facility] Invalid Interpretation Code [facility] Resp Auto SS FCOHb Art 2.1 % Normal 1.5 - 4.9 % [facility] Resp Auto SS Comment on above: Interpretive Data: R eference range Nonsmoker <1.5% Smoker <5.0% Heavy Smoker <9.0% FO2Hb Art 91.9 % Low 93.0 - 100.0 % [facility] [place] Auto SS HCO3 (Bld) [Moles/Vol] 22.0 mmol/L Normal 22.0 - 26.0 mmol/L [facility] [place] Auto SS Hemoglobin (Bld) [Mass/Vol] 15.4 g/dL Normal 12.0 - 17.0 gm/dL [facility] [place] Auto SS P CO2 Arterial 40.0 mm[Hg] Normal 35.0 - 45.0 mmHg [facility] C Resp Auto SS P O2 Arterial 63.1 mm[Hg] Low 80.0 - 100.0 mmHg [facility] C Resp Auto SS pH (Bld) 7.358 [pH] Normal 7.350 - 7.450 [facility] [place] Auto SS Sample Site R Radial (12/20/24 2:09 PM) Normal [facility] [place] Resp Auto SS Sample Type Arterial Draw (12/20/24 2:09 PM) Normal [facility] [place] Resp Auto SS Sodium [Moles/Vol] 21 mmol/L Invalid Interpretation Code [facility] [place] Auto SS HEMATOLOGYOrdered By: SYSTEM SYSTEM on 12-20-2024 Basophils/100 WBC (Bld) 1.1 % Normal 0.0 - 2.0 % [facility] Heme Basophils/Leukocytes Auto (Bld) [Pure # fraction] 0.1 E9/L Normal 0.0 - 0.2 E9/L [facility] Eosinophils (Bld) [#/Vol] 0.2 E9/L Normal 0.0 - 0.5 E9/L [facility] Eosinophils/100 WBC (Bld) 3.8 % Normal 0.0 - 8.0 % [facility] Erythrocyte distribution width (RBC) [Ratio] 13.6 % Normal 10.9 - 14.2 % [facility] Hematocrit (Bld) [Volume fraction] 46.1 % Normal 37.7 - 49.0 % [facility] Hemoglobin (Bld) [Mass/Vol] 15.6 g/dL Normal 13.5 - 17.5 gm/dL [facility] Lymphocytes (Bld) [#/Vol] 1.3 E9/L Normal 1.0 - 4.0 E9/L [facility] Lymphocytes/100 WBC (Bld) 21.6 % Normal 14.0 - 50.0 % [facility] MCH (RBC) [Entitic mass] 30.9 pg Normal 27.0 - 34.0 pg [facility] MCHC (RBC) [Mass/Vol] 33.9 g/dL Normal 31.4 - 36.0 gm/dL [facility] MCV (RBC) [Entitic vol] 91.3 fL Normal 80.0 - 100.0 fL [facility] Monocytes (Bld) [#/Vol] 0.6 E9/L Normal 0.2 - 1.0 E9/L [facility] Monocytes/100 WBC (Bld) 8.9 % Normal 4.0 - 14.0 % [facility] Neutrophils (Bld) [#/Vol] 4.0 E9/L Normal 2.0 - 7.5 E9/L [facility] Neutrophils/100 WBC (Bld) 64.6 % Normal 36.0 - 75.0 % [facility] Platelet mean volume (Bld) [Entitic vol] 8.0 fL Normal 6.4 - 10.8 fL [facility] Platelets (Bld) [#/Vol] 190.0 E9/L Normal 150.0 - 500.0 E9/L [facility] RBC (Bld) [#/Vol] 5.1 E12/L Normal 4.3 - 5.9 E12/L Re misol Heme WBC corrected for nucl RBC Auto (Bld) [#/Vol] 6.2 E9/L Normal 4.0 - 11.0 E9/L [facility] Heme Hep Func Panelon 12-20-2024 Albumin/Globulin (S) [Mass conc ratio] 1.1 Normal 1.1-2.2 [facility] Comment on above: Performed By: #### 2 [id number] #### [facility] [address] [place] [address] Bilirubin.indirect [Mass or moles/Vol] 0.8 mg/dL Normal 0.1-0.9 [facility] Comment on above: Performed By: #### 2 [id number] #### [facility] [address] [place] [address] Globulin (S) [Mass/Vol] 3.3 g/dL Normal 1.4-4.0 [facility] Comment on above: Performed By: #### 2 [id number] #### [facility] [address] [place] [address] Albumin [Mass/Vol] 3.5 g/dL Normal 3.3-5.0 [facility] Comment on above: Performed By: #### 2 [id number] #### [facility] [address] [place] [address] ALP [Catalytic activity/Vol] 156 Int._Unit/L High 21-98 [facility] Comment on above: Performed By: #### 2 [id number] #### [facility] [address] [place] [address] ALT No additional P-5'-P [Catalytic activity/Vol] 22 Int._Unit/L Normal 6-46 [facility] Comment on above: Performed By: #### 2 [id number] #### [facility] [address] [place] [address] AST [Catalytic activity/Vol] 18 Int._Unit/L Normal 5-43 [facility] Comment on above: Performed By: #### 2 [id number] #### [facility] [address] [place] [address] Bilirubin [Mass/Vol] 0.9 mg/dL Normal 0.0-1.1 [facility] Comment on above: Performed By: #### 2 [id number] #### [facility] [address] [place] [address] Bilirubin.direct [Mass/Vol] 0.1 mg/dL Normal 0.0-0.4 [facility] Comment on above: Performed By: #### 2 [id number] #### [facility] [address] [place] [address] Protein [Mass/Vol] 6.8 g/dL Normal 6.0-7.8 [facility] Comment on above: Performed By: #### 2 [id number] #### [facility] [address] [place] [address] Pre-Arrival Noteon Pre-Arrival Note Pre-Arrival Note Pre-Arrival Summary Name: , [place] EMS Current Date: 12/20/2024 13:30:15 EDT Gender: Male Date of : Age: 64 Pre-Arrival Type: EMS ETA: 12/20/2024 13:49:00 EDT Primary Care Physician: Presenting Problem: L knee pain, seen yesterday AMA? Pre-Arrival User: Kiersten Theodore RN Referring Source: Location: [place] Completion Date/Time: 12/20/2024 13:20:00 [facility] Emergency Department Pre-Hospital Report Form Vital Signs: Pre-Hospital Report: Treatment in Route: Response to Treatment: Misc. Issues: Normal [facility] UA with Cult Rflxon 12-21-19 25 Bilirubin Ql (U) Negative Normal Negative [facility] Comment on above: Performed By: #### 4 [id number] #### [facility] [address] [place] [address] Clarity (U) Clear Normal Clear [facility] Comment on above: Performed By: #### 4 [id number] #### [facility] [address] [place] [address] Color (U) Colorless Abnormal Yellow [facility] Comment on above: Result Comment: Micr oscopic readings are only performed on those samples that meet specific criteria set forth by [facility]. Performed By: #### 4 [id number] #### [facility] [address] [place] [address] Glucose Ql (U) 4+ mg/dL Abnormal Negative [facility] Comment on above: Performed By: #### 4 [id number] #### [facility] [address] [place] [address] Hemoglobin Auto test strip (U) [Mass/Vol] Negative Normal Negative [facility] Comment on above: Performed By: #### 4 [id number] #### [facility] [address] [place] [address] Ketones Auto test strip Ql (U) Trace Abnormal Negative [facility] Comment on above: Performed By: #### 4 [id number] #### [facility] [address] [place] [address] Leukocyte esterase Auto test strip Ql (U) Negative Normal Negative [facility] Comment on above: Performed By: #### 4 [id number] #### [facility] [address] [place] [address] Mucus Auto Ql (U) Negative Normal Negative [facility] Comment on above: Performed By: #### 4 [id number] #### [facility] [address] [place] [address] Nitrite Auto test strip Ql (U) Negative Normal Negative [facility] Comment on above: Performed By: #### 4 [id number] #### [facility] [address] [place] [address] pH (U) 5.5 [pH] Invalid Interpretation Code 5.0-9.0 [facility] Comment on above: Performed By: #### 4 [id number] #### [facility] [address] [place] [address] Protein Ql (U) 1+ mg/dL Abnormal Negative [facility] Comment on above: Performed By: #### 4 [id number] #### [facility] [address] [place] [address] Specific gravity (U) [Rel density] 1.018 Invalid Interpretation Code 1.005-1.030 [facility] Comment on above: Performed By: #### 4 [id number] #### [facility] [address] [place] [address] Urobilinogen (U) [Mass/Vol] Negative Normal Negative [facility] Comment on above: Performed By: #### 4 [id number] #### [facility] [address] [place] [address] Type of Urine collection method Clean Catch Normal [facility] Comment on above: Performed By: #### 4 [id number] #### [facility] [address] [place] [address] URINALYSISOrdered By: SYSTEM SYSTEM on 12-20-2024 Bilirubin Ql (U) Negative Normal Negativemg/dL [facility] UA Auto SS Clarity (U) Clear (12/20/24 4:37 PM) Normal Clear [facility] UA Auto SS Color (U) Colorless 1 *ABN* (12/20/24 4:37 PM) Invalid Interpretation Code Yellow [facility] Auto SS Comment on above: Interpretive Data: M icroscopic readings are only performed on those samples that meet specific criteria set forth by [facility]. Glucose Ql (U) 4+ mg/dL Invalid Interpretation Code Negativemg/dL [facility] UA Auto SS Hemoglobin Auto test strip (U) [Mass/Vol] Negative Normal Negativemg/dL [facility] UA Aut o SS Ketones Auto test strip Ql (U) Trace mg/dL Invalid Interpretation Code Negativemg/dL [facility] UA Auto SS Leukocyte esterase Auto test strip Ql (U) Negative Normal NegativeLeu/uL [facility] UA Auto SS Mucus Auto Ql (U) Negative Normal Negativegr aded/LP F [facility] UA Auto SS Nitrite Auto test strip Ql (U) Negative Normal Negativemg/dL [facility] UA Auto SS pH (U) 5.5 *NA* (12/20/24 4:37 PM) Invalid Interpretation Code 5.0 - 9.0 [facility] UA Auto SS Protein Ql (U) 1+ mg/dL Invalid Interpretation Code Negativemg/dL [facility] UA Auto SS Specific gravity (U) [Rel density] 1.018 *NA* (12/20/24 4:37 PM) Invalid Interpretation Code 1.005 - 1.030 [facility] UA Auto SS Urobilinogen (U) [Mass/Vol] Negative Normal Negativemg/dL [facility] UA Auto SS URINALYSISOrdered By: Paddy turner on 12-20-2024 UA Spec Desc Clean Catch (12/20/24 4:37 PM) Normal [facility] UA Auto SS Work Phone: XR Chest Single Viewon 12-20 XR Chest Single View Exam Date/Time: 12/20/2024 14:35 EDT Reason for Exam: Shortness of breath (SOB) Report IMPRESSION: No significant interval change from prior. EXAMINATION/TECHNIQUE : XR Chest Single View HISTORY: Shortness of breath. COMPARISON: 12/19/2024. RESULT: Elevation of left hemidiaphragm and probable scarring/atelectasis at the lung bases, greater on the left, unchanged. No large pleural effusion. No pneumothorax. Stable cardiomediastinal silhouette. No acute osseous findings. Ordering Provider: Paddy Betancourt FINAL REPORT Dictated: 12/20/2024 2:49 pm Primo Robles MD Signed (Electronic Signature): 12/20/2024 2:49 pm Signed by: Primo Robles MD Transcribed by: KAT Technologist: Boris BARNEY [facility] eGFRon 12-20-2024 eGFR 38 mL/min/1.73 m2 Low >=59 [facility] Comment on above: Performed By: #### 1 [id number] #### [facility] [address] [place] [address] BMPon 12-19-2024 Anion gap [Moles/Vol] 15 mmol/L Normal 6-16 [facility] Comment on above: Performed By: #### 2 [id number] #### [facility] [address] [place] [address] Calcium [Mass/Vol] 8.1 mg/dL Low 8.9-11.1 [facility] Comment on above: Performed By: #### 2 [id number] #### [facility] [address] [place] [address] Chloride [Moles/Vol] 80 mmol/L Abnormal 101-111 [facility] Comment on above: Result Comment: Crit ical Result Verified by Repeat Analysis Critical Result S_CL:80 Called to and read back by: TREMAINE LAND at: 12/19/2024 12:00:32 by:VANESSA Performed By: #### 2 [id number] #### [facility] [address] [place] [address] CO2 [Moles/Vol] 24 mmol/L Normal 21-31 [facility] Comment on above: Performed By: #### 2 [id number] #### [facility] [address] [place] [address] Creatinine [Mass/Vol] 1.9 mg/dL High 0.5-1.3 [facility] Comment on above: Performed By: #### 2 [id number] #### [facility] [address] [place] [address] Glucose [Mass/Vol] 1228 mg/dL Abnormal 55-199 [facility] Comment on above: Result Comment: Crit ical Result Verified by Repeat Analysis Result Verified by Dilution Critical Result [id number] Called to and read back by: TREMAINE LAND at: 12/19/2024 12:00:32 by:VANESSA Performed By: #### 2 [id number] #### [facility] [address] [place] [address] Potassium [Moles/Vol] 4.7 mmol/L Normal 3.5-5.3 [facility] Comment on above: Performed By: #### 2 [id number] #### [facility] [address] [place] [address] Sodium [Moles/Vol] 114 mmol/L Abnormal 135-145 [facility] Comment on above: Result Comment: Crit ical Result Verified by Repeat Analysis Critical Result S_NA of 114 Called to and read back by: TREMAINE LAND at: 12/19/2024 12:00:32 by:VANESSA Performed By: #### 2 [id number] #### [facility] [address] [place] [address] Urea nitrogen [Mass/Vol] 54 mg/dL High 5-21 [facility] Comment on above: Performed By: #### 2 [id number] #### [facility] [address] [place] [address] Urea nitrogen/Creatinine [Mass ratio] 28 No Units High 10-20 [facility] Comment on above: Performed By: #### 2 [id number] #### [facility] [address] [place] [address] BOHBon 12-19-2024 Beta HB Qnt 1.12 mmol/L High 0.02-0.27 [facility] Comment on above: Performed By: #### 2 [id number] #### [facility] [address] [place] [address] CBC w/ Auto Diffon 5 Basophils/100 WBC (Bld) 0.8 % Normal 0.0-2.0 [facility] Comment on above: Performed By: #### 2 [id number] #### [facility] [address] [place] [address] Basophils/Leukocytes Auto (Bld) [Pure # fraction] 0.1 E9/L Normal 0.0-0.2 [facility] Comment on above: Performed By: #### 2 [id number] #### [facility] [address] [place] [address] Eosinophils (Bld) [#/Vol] 0.2 E9/L Normal 0.0-0.5 [facility] Comment on above: Performed By: #### 2 [id number] #### [facility] [address] [place] [address] Eosinophils/100 WBC (Bld) 3.6 % Normal 0.0-8.0 [facility] Comment on above: Performed By: #### 2 [id number] #### [facility] [address] [place] [address] Erythrocyte distribution width (RBC) [Ratio] 13.4 % Normal 10.9-14.2 [facility] Comment on above: Performed By: #### 2 [id number] #### [facility] [address] [place] [address] Hematocrit (Bld) [Volume fraction] 46.6 % Normal 37.7-49.0 [facility] Comment on above: Performed By: #### 2 [id number] #### [facility] [address] [place] [address] Hemoglobin (Bld) [Mass/Vol] 15.3 g/dL Normal 13.5-17.5 [facility] Comment on above: Performed By: #### 2 [id number] #### [facility] [address] [place] [address] Lymphocytes (Bld) [#/Vol] 1.6 E9/L Normal 1.0-4.0 [facility] Comment on above: Performed By: #### 2 [id number] #### [facility] [address] [place] [address] Lymphocytes/100 WBC (Bld) 24.8 % Normal 14.0-50.0 [facility] Comment on above: Performed By: #### 2 [id number] #### [facility] [address] [place] [address] MCH (RBC) [Entitic mass] 31.0 pg Normal 27.0-34.0 [facility] Comment on above: Performed By: #### 2 [id number] #### [facility] [address] [place] [address] MCHC (RBC) [Mass/Vol] 32.7 g/dL Normal 31.4-36.0 [facility] Comment on above: Performed By: #### 2 [id number] #### [facility] [address] [place] [address] MCV (RBC) [Entitic vol] 94.8 fL Normal 80.0-100.0 [facility] Comment on above: Performed By: #### 2 [id number] #### [facility] [address] [place] [address] Monocytes (Bld) [#/Vol] 0.6 E9/L Normal 0.2-1.0 [facility] Comment on above: Performed By: #### 2 [id number] #### [facility] [address] [place] [address] Neutrophils (Bld) [#/Vol] 3.9 E9/L Normal 2.0-7.5 [facility] Comment on above: Performed By: #### 2 [id number] #### [facility] [address] [place] [address] Neutrophils/100 WBC (Bld) 61.6 % Normal 36.0-75.0 [facility] Comment on above: Performed By: #### 2 [id number] #### [facility] [address] [place] [address] Platelet 219.0 E9/L Normal 150.0-500.0 [facility] Comment on above: Performed By: #### 2 [id number] #### [facility] [address] [place] [address] Platelet mean volume (Bld) [Entitic vol] 8.5 fL Normal 6.4-10.8 [facility] Comment on above: Performed By: #### 2 [id number] #### [facility] [address] [place] [address] RBC (Bld) [#/Vol] 4.9 E12/L Normal 4.3-5.9 [facility] Comment on above: Performed By: #### 2 [id number] #### [facility] [address] [place] [address] WBC corrected for nucl RBC Auto (Bld) [#/Vol] 6.4 E9/L Normal 4.0-11.0 [facility] Comment on above: Performed By: #### 2 [id number] #### [facility] [address] [place] [address] Capillary Glucose POCon 05-0 Glucose [Mass/Vol] mg/dL Abnormal 55-99 [facility] Comment on above: Result Comment: Thelma maxwell RN/ Performed By: #### 2 [id number] #### [facility] [address] [place] [address] ED Clinical Summaryon 2024 ED Clinical Summary ED Clinical Summary [address] [address] ED Clinical Summary Person Information Name: NICOLE LORA[place] Age: 64 Years : 1960 Sex: Male Language: Palauan PCP: Mounika Brooke MD Marital Status: Phone: [phone] Visit Id: Visit Reason: Leg pain-swelling; Weakness or fatigue; left leg pain Speciality: Acuity: 3 Enc Type: Emergency Med Service: Emergency Arrival: 12/19/2024 10:20:20 Discharge: 12/19/2024 14:13:36 LOS: 000 03:53 Checkin: 12/19/2024 10:20:20 Checkout: 12/19/2024 14:13:36 Dispo Type: Left Against Medical Advice EVENTS: Event Name Event Status Request Date/Time Start Date/Time Complete Date/Time Arrive Complete 12/19/2024 10:20:20 12/19/2024 10:20:20 12/19/2024 10:20:20 Document Home Meds Request 12/19/2024 10:20:20 Triage Complete 12/19/2024 10:20:20 12/19/2024 10:26:58 12/19/2024 10:26:58 Bed Assign Complete 12/19/2024 10:21:16 12/19/2024 10:21:16 12/19/2024 10:21:16 Dr Exam Complete 12/19/2024 10:21:16 12/19/2024 10:25:47 12/19/2024 10:25:47 RN Exam Complete 12/19/2024 10:21:16 12/19/2024 10:29:44 12/19/2024 10:29:44 Pending Labs Complete 12/19/2024 10:23:43 12/19/2024 10:23:43 12/19/2024 10:23:43 Registration Complete 12/19/2024 10:25:47 12/19/2024 11:21:53 12/19/2024 11:21:53 EKG Complete 12/19/2024 10:26:17 12/19/2024 10:34:13 Isolation Screening Request 12/19/2024 10:26:59 Fall Risk Request 12/19/2024 10:29:44 Meds Admin Complete 12/19/2024 11:00:39 12/19/2024 11:08:05 Pending Labs Request 12/19/2024 11:00:39 Lab Complete 12/19/2024 11:00:39 12/19/2024 12:00:39 X-Ray Complete 12/19/2024 11:00:39 12/19/2024 11:15:55 12/19/2024 11:31:58 Pending Labs Complete 12/19/2024 11:20:29 12/19/2024 11:20:29 12/19/2024 12:00:39 Lab Complete 12/19/2024 11:20:29 12/19/2024 11:20:29 12/19/2024 12:00:39 Reg Complete Request 12/19/2024 11:21:53 Reg Bed Request Complete 12/19/2024 11:21:53 12/19/2024 11:21:53 12/19/2024 11:21:53 Wet Read Request 12/19/2024 11:31:58 Pending Labs Complete 12/19/2024 11:41:15 12/19/2024 11:41:15 12/19/2024 11:41:15 Dr Exam Complete 12/19/2024 13:51:33 12/19/2024 13:51:33 12/19/2024 13:51:33 Registration Request 12/19/2024 13:51:33 Discharge Complete 12/19/2024 13:54:01 12/19/2024 14:13:49 12/19/2024 14:13:49 Transfer Complete 12/19/2024 14:13:49 12/19/2024 14:13:49 12/19/2024 14:13:49 ADDRESS: [address] [place] [id number] PHYS DOC NOTES: MEDICAL INFORMATION: Prescriptions Given: New Medications [id number], [address] [place], [place] [id number], [phone] methocarbamol (Robaxin-750 oral tablet) 1 Tablets By Mouth 3 times a day for 3 Days. Refills: 0. Medications to Continue with No Changes Other Medications albuterol (Albuterol (Eqv-ProAir HFA) 90 mcg/inh inhalation aerosol) 2 Puffs Inhalation every 6 hours as needed Wheezing. Refills: 11. albuterol (albuterol 0.083% Inh Harriet 3 mL) 3 Milliliter Inhalation every 4 hours as needed Shortness of breath or wheezing. Refills: 5. albuterol (Ventolin HFA 90 mcg/inh Aerosol) 2 Puffs Inhalation every 4 hours as needed Shortness of breath or wheezing. Refills: 5. atorvastatin (atorvastatin 40 mg Tab) 1 Tablets By Mouth once a day (in the morning). Refills: 0. budesonide-formoterol (Symbicort 160/4.5 inhalation aerosol with adapter) 2 Puffs Inhalation 2 times a day. Refills: 6. doxycycline (doxycycline hyclate 100 mg Cap) 1 Capsules By Mouth 2 times a day. Refills: 0. doxycycline (doxycycline hyclate 100 mg Tab) Take 1 tab the day before your procedure and 1 tab the day of procedure - afterwards. Refills: 0. doxycycline (doxycycline hyclate 100 mg Tab) Start taking 3 days prior to procedure - twice a day x7 days. Refills: 0. duloxetine (duloxetine 60 mg oral delayed release capsule) 1 Capsules By Mouth every day. Refills: 11. furosemide (Lasix 20 mg Tab) 1 Tablets By Mouth once a day (in the evening). Refills: 0. furosemide (Lasix 40 mg Tab) 1 Tablets By Mouth every day. Refills: 0. gabapentin (gabapentin 600 mg Tab) 1 Tablets By Mouth 3 times a day. 30 Day Supply. Refills: 11. insulin aspart (NovoLOG FlexPen 100 units/mL injectable solution) <150 35 units, 150 - 200 40 units, 201-250 45 units, 50 units >250 tidac. Max 150 units a day. Refills: 5. insulin glargine (Toujeo Max SoloStar 300 units/mL subcutaneous solution) 40 Units Subcutaneous 2 times a day. Refills: 5. insulin glargine (Toujeo SoloStar) 50 Units Subcutaneous at bedtime. linagliptin-metFORMIN (Jentadueto 2.5 mg-1000 mg oral tablet) 1 Tablets By Mouth 2 times a day. Refills: 4. Misc Prescription (Freestyle Sage 2 [place]) Use daily with sensor. Refills: 0. Misc Prescription (Freestyle Sage 2 Sensors) Apply one q 14 days. Refills: 3. Misc Prescription (Glucometer test strips) Test TID DX E11.40 on insulin. Refills: 11. Misc Prescription (Glucometer) Dispense 1 Glucometer. Refills: 0. Misc Prescription (Insulin Pen [place] 31g x 8 mm) Use up to 4 daily. Refills: 4. (more content not included)... Normal [facility] ED Patient Summaryon 025 ED Patient Summary ED Patient Summary [address] [address] Patient Discharge Instructions Person Information Name: NICOLE LORA Age: 64 Years Arrival Date: 12/19/2024 10:20:20 Discharge Diagnosis: Hyperglycemia; Muscle cramps Primary Care Physician: Mendy LYMAN, Mounika Lugo Provider Information Primary Provider: Corky Luo MD Advanced Steward/[employer] Car:Jesus Grijalva PA-C The exam and treatment you received in the Emergency Department were for an urgent problem and are not intended as complete care. It is important that you follow up with a doctor, nurse practitioner, or physician???s preschool assistant director for ongoing care. If your symptoms become worse or you do not improve as expected and you are unable to reach your usual health care provider, you should return to the Emergency Department. We are available 24 hours a day. NICOLE LORA has been given the following list of patient education materials, prescriptions and follow-up instructions: Follow-up Instructions: With: Address: When: Moun[place] [address] Business (1) In 3 days 12/22/2024 In the event that this physician does not participate in your insurance network, please consult with your insurance company to find a nearby participating provider. Patient Education Materials: Hyperglycemia A MESSAGE TO ALL PATIENTS REGARDING OPIOIDS PRESCRIPTION OPIOIDS: WHAT YOU NEED TO KNOW Prescription opioids can be used to help relieve qpgohpbh-hb-ndohzw pain and are often prescribed following a surgery or injury, or for certain health conditions. These medications can be an important part of the treatment but also come with serious risks. It is important to work with your healthcare provider to make sure you are getting the safest, most effective care. WHAT ARE THE RISKS AND SIDE EFFECTS OF OPIOID USE? Prescription opioids carry serious risks of addiction and overdose, especially with prolonged use. An opioid overdose, often marked by slowed breathing, can cause sudden . The use of prescription opioids can have a number of side effects as well, even when taken as directed: ??? Tolerance???meaning you might need to take more of the medication for the same pain relief ??? Physical dependence???meaning you have symptoms of withdrawal when a medication is stopped ??? Increased sensitivity to pain ??? Constipation ??? Nausea, vomiting, and dry mouth ??? Sleepiness and dizziness ??? Confusion ??? Depression ??? Low levels of testosterone that can result in lower sex drive, energy, and strength ??? Itching and sweating RISKS ARE GREATER WITH: ??? History of drug misuse, substance use disorder, or overdose ??? Mental health conditions (such as depression or anxiety) ??? Sleep apnea ??? Older age (65 years and older) ??? Avoid alcohol while taking prescription opioids. Also, unless specifically advised by your health care provider, medications to avoid include: ??? Benzodiazepines (such as Xanax or Valium) ??? Muscle relaxants (such as Soma or Flexeril) ??? Hypnotics (such as Ambien or Lunesta) ??? Other prescription opioids KNOW YOUR OPTIONS Talk to your health care provider about ways to manage your pain that don???t involve prescription opioids. Some of these options may actually work better and have fewer risks and side effects. Options may include: ??? Pain relievers such as acetaminophen, ibuprofen, and naproxen ??? Some medication that are also used for depression or seizures ??? Physical therapy and exercise ??? Cognitive behavioral therapy, a psychological, goal-directed approach, in which patients learn how to modify physical, behavioral, and emotional triggers of pain and stress. IF YOU ARE PRESCRIBED OPIOIDS FOR PAIN: ??? Never take opioids in greater amounts or more often than prescribed. ??? Follow up with your primary health care provider. o Work together to create a plan on how to manage your pain. o Talk about ways to help manage your pain that don???t involve prescription opioids. o Talk about any and all concerns and side effects. ??? Help prevent misuse and abuse o Never sell or share prescription opioids. o Never use another person???s prescription opioids. ??? Store prescription opioids in a secure place and out of reach of others (this may include visitors, children, friends, and family). ??? Safely dispose of unused prescription opioids: Find your community drug take-back program or your pharmacy mail-back program, or flush them down the toilet, following guidance from the Food and Drug Administration (www.fda.gov/Drugs/Re sourcesForYou). ??? Visit www.cdc.gov/drugoverd ose to learn about the risks of opioids abuse and overdose. ??? If you believe you may be struggling with addiction, tell your health doggy daycare activities director and ask for guidance o (more content not included)... Normal [facility] Extra Blueon 12-19-2024 Tube Collected Plasma Yes Invalid Interpretation Code [facility] Comment on above: Performed By: #### 1 [id number] #### [facility] [address] [place] [address] Hep Func Panelon 12-19-2024 Albumin [Mass/Vol] 3.4 g/dL Normal 3.3-5.0 [facility] Comment on above: Performed By: #### 2 [id number] #### [facility] [address] [place] [address] Albumin/Globulin (S) [Mass conc ratio] 1.1 Normal 1.1-2.2 [facility] Comment on above: Performed By: #### 2 [id number] #### [facility] [address] [place] [address] ALP [Catalytic activity/Vol] 208 Int._Unit/L High 21-98 [facility] Comment on above: Performed By: #### 2 [id number] #### [facility] [address] [place] [address] ALT No additional P-5'-P [Catalytic activity/Vol] 25 Int._Unit/L Normal 6-46 [facility] Comment on above: Performed By: #### 2 [id number] #### [facility] [address] [place] [address] AST [Catalytic activity/Vol] 26 Int._Unit/L Normal 5-43 [facility] Comment on above: Performed By: #### 2 [id number] #### [facility] [address] [place] [address] Bilirubin [Mass/Vol] 0.9 mg/dL Normal 0.0-1.1 [facility] Comment on above: Performed By: #### 2 [id number] #### [facility] [address] [place] [address] Bilirubin.direct [Mass/Vol] 0.1 mg/dL Normal 0.0-0.4 [facility] Comment on above: Performed By: #### 2 [id number] #### [facility] [address] [place] [address] Bilirubin.indirect [Mass or moles/Vol] 0.8 mg/dL Normal 0.1-0.9 [facility] Comment on above: Performed By: #### 2 [id number] #### [facility] [address] [place] [address] Globulin (S) [Mass/Vol] 3.1 g/dL Normal 1.4-4.0 [facility] Comment on above: Performed By: #### 2 [id number] #### [facility] [address] [place] [address] Protein [Mass/Vol] 6.5 g/dL Normal 6.0-7.8 [facility] Comment on above: Performed By: #### 2 [id number] #### [facility] [address] [place] [address] XR Chest Single Viewon 12-19 XR Chest Single View Exam Date/Time: 12/19/2024 11:31 EDT Reason for Exam: Shortness of breath (SOB) Report IMPRESSION: NO SIGNIFICANT INTERVAL CHANGE. EXAM: XR Chest Single View History: Shortness of breath Technique: Portable AP view of the chest. Comparison: 12/02/2024 Findings: Elevation the left hemidiaphragm. The cardiomediastinal silhouette is within normal limits. Bilateral lung opacities greatest at the lung bases have not significantly changed and likely represent scarring and/or atelectasis unless the patient has signs/symptoms of pneumonia. No pneumothorax or pleural effusion. No acute osseous abnormality. Ordering Provider: Jesus Grijalva FINAL REPORT Dictated: 12/19/2024 11:51 am Shaquille Broussard DO Signed (Electronic Signature): 12/19/2024 11:51 am Signed by: Shaquille Broussard DO Transcribed by: KAT Technologist: Boris BARNEY [facility] eGFRon 12-19-2024 eGFR 38 mL/min/1.73 m2 Low >=59 [facility] Comment on above: Performed By: #### 1 [id number] #### [facility] [address] [place] [address] ED Note-Physicianon 12-17-19 ED Note-Physician ED Note-Physician Basic Information Time Seen: Paddy Betancourt PA-C. 12/02/2024 12:42 Chief Complaint Concerned for dehydration. States has been drinking fluids. Intermittent nausea and dry mouth. History of Present Illness A 64-year-old male reports to the emergency department with concerns of dehydration. Reports mild nausea associated with this. Reports this symptom going on for a month now. Reports that nausea with this. Denies any vomiting. Denies any belly pain. Reports he is a type II diabetic. Reports he has been drinking half a gallon of fluids at least a day. He also reports he has had little bit of a cough. Denies any chest pain or shortness of breath with this. Denies any fevers or chills. Denies any belly pain or back pain. Review of Systems No other aggravating or relieving factors no other associated symptoms no other prior treatments or complaints. Family: Reviewed and noncontributory Social: lives at home Review of systems negative unless otherwise specified in the HPI. Physical Exam Vitals & Measurements T: 36 ???C(Tympanic) HR: 74(Monitored) RR: 18 BP: 166/97 SpO2: 93% HT: 183 cm WT: 117.1 kg BMI: 34.97 General: The patient appears well and in no apparent distress. Patient is resting comfortably on bed. Afebrile Skin: Warm, dry, no pallor noted. Head: Normocephalic, atraumatic Neck: No JVD Eye: PERRLA, EOMI ENT: Moist mucus membranes Cardiovascular: Regular rate. normal peripheral perfusion. Radial pulses +2 bilaterally Respiratory: No respiratory distress. no accessory muscle use. no obvious audible wheezing. Lung sounds clear Chest Wall: no deformity Musculoskeletal: normal ROM, no deformity, no swelling GI: No obvious distention. Abdomen soft. No rebound tenderness guarding noted. Neurological: A&O. moves all extremities equal strength and symmetry Psychiatric: Cooperative and appropriate Medical Decision Making A 64-year-old male reports to the emergency department with concerns of dehydration status. Reports has been drinking plenty of water, but still feels very thirsty. Reports he is diabetic. Exam patient here is rather benign. Reports mild cough is going on for couple weeks as well. He is in no acute distress. Due to concerns we did do basic labs. Lab work did show that he is hyperglycemic. He does have pseudohyponatremia. Kidney function stable. I discussed and delved further into conversation with the patient, states he has been reading high for the last couple weeks. Reports he has been given insulin, but still reading high. Reports no episodes of him being low. Due to his history, I did recommend admission to the patient. Patient denies that he cannot be admitted. He reports he does have follow-up with endocrinology. I discussed that with it being this high, he can have worsening symptoms as well as going to life-threatening events such as going into DKA. He was understand with this. He was agreeable with leaving AGAINST MEDICAL ADVICE. Discussed risks associate with this, which he was agreeable with. He states he cannot be admitted. I did give him fluids here, as well as 10 units of insulin. X-ray was concerning for possible atelectasis versus infiltrates, so I did prescribe him cefdinir as well as doxycycline. Discussed if symptoms worsen need to immediately report back to the emergency department. The patient wishes to sign out AGAINST MEDICAL ADVICE. The patient understands and appreciates the admission diagnosis and its prognosis and the likelihood of risks and benefits of leaving the hospital. The patient signed documentation that they would like to leave at their own insistence and against the advice of the physicians. The patient was advised of the possible dangers to their life and health from this departure, and the patient assumes the risks and consequences involved and releases the staff and the Medical Center from any liability in connection with leaving AGAINST MEDICAL ADVICE. The patient understands that we cannot fully assess the patient for the current complaint at this time because they do not want us to perform our investigations. The patient understands and the possibilities of and disability and consequences of leaving AGAINST MEDICAL ADVICE. The patient has been informed of the dangers of leaving AGAINST MEDICAL ADVICE and still is insistent upon signing out. The patient has arrived at this decision without being subjected to coercion and with a full understanding in appreciation of the risks, benefits, and alternatives of the decision. The patient is not intoxicated. Assessment/Plan Bronchitis (J40: Bronchitis, not specified as acute or chronic) Hyperglycemia (R73.9: Hyperglycemia, unspecified) Left against medical advice (Z53.29: Procedure and treatment not carried out because of patient's decision for other reasons) Orders: cefdinir, 300 mg = 1 cap(s), Oral, q12hr, X 10 day(s), # 20 cap(s), Refills(s) 0, Pharmacy: [facility] #[id number], 183, cm, 12/02/24 12:47:0 (more content not included)... Normal [facility] Comment on above: Result Comment: Elec tronically Signed By: Paddy Betancourt PA-C\.br\Date and Time Signed: 12/02/24 15:27 EDT\.br\Electronically Co-Signed By: Nicole Myers DO\.br\Date and Time Co-Signed: 12/16/24 07:10 EDT BMPon 12-02-2024 Anion gap [Moles/Vol] 16 mmol/L Normal 6-16 [facility] Comment on above: Performed By: #### 2 [id number] #### [facility] [address] [place] [address] Calcium [Mass/Vol] 9.0 mg/dL Normal 8.9-11.1 [facility] Comment on above: Performed By: #### 2 [id number] #### [facility] [address] [place] [address] Chloride [Moles/Vol] 87 mmol/L Low 101-111 [facility] Comment on above: Performed By: #### 2 [id number] #### [facility] [address] [place] [address] CO2 [Moles/Vol] 25 mmol/L Normal 21-31 [facility] Comment on above: Performed By: #### 2 [id number] #### [facility] [address] [place] [address] Creatinine [Mass/Vol] 1.6 mg/dL High 0.5-1.3 [facility] Comment on above: Performed By: #### 2 [id number] #### [facility] [address] [place] [address] Glucose [Mass/Vol] 751 mg/dL Abnormal 55-199 [facility] Comment on above: Result Comment: Crit ical Result Verified by Repeat Analysis Critical Result [id number] Called to and read back by: TREMAINE LAND at: 12/02/2024 13:48:34 by:WOODY Performed By: #### 2 [id number] #### [facility] [address] [place] [address] Potassium [Moles/Vol] 4.4 mmol/L Normal 3.5-5.3 [facility] Comment on above: Performed By: #### 2 [id number] #### [facility] [address] [place] [address] Sodium [Moles/Vol] 124 mmol/L Low 135-145 [facility] Comment on above: Performed By: #### 2 [id number] #### [facility] [address] [place] [address] Urea nitrogen [Mass/Vol] 40 mg/dL High 5-21 [facility] Comment on above: Performed By: #### 2 [id number] #### [facility] [address] [place] [address] Urea nitrogen/Creatinine [Mass ratio] 25 No Units High 10-20 [facility] Comment on above: Performed By: #### 2 [id number] #### [facility] [address] [place] [address] CBC w/ Auto Diffon 5 Basophils/100 WBC (Bld) 0.6 % Normal 0.0-2.0 [facility] Comment on above: Performed By: #### 2 [id number] #### [facility] [address] [place] [address] Basophils/Leukocytes Auto (Bld) [Pure # fraction] 0.0 E9/L Normal 0.0-0.2 [facility] Comment on above: Performed By: #### 2 [id number] #### [facility] [address] [place] [address] Eosinophils (Bld) [#/Vol] 0.2 E9/L Normal 0.0-0.5 [facility] Comment on above: Performed By: #### 2 [id number] #### [facility] [address] [place] [address] Eosinophils/100 WBC (Bld) 2.8 % Normal 0.0-8.0 [facility] Comment on above: Performed By: #### 2 [id number] #### [facility] [address] [place] [address] Erythrocyte distribution width (RBC) [Ratio] 13.4 % Normal 10.9-14.2 [facility] Comment on above: Performed By: #### 2 [id number] #### [facility] [address] [place] [address] Hematocrit (Bld) [Volume fraction] 48.9 % Normal 37.7-49.0 [facility] Comment on above: Performed By: #### 2 608301 #### [facility] [address] [place] [address] Hemoglobin (Bld) [Mass/Vol] 16.6 g/dL Normal 13.5-17.5 [facility] Comment on above: Performed By: #### 2 [id number] #### [facility] [address] [place] [address] Lymphocytes (Bld) [#/Vol] 1.2 E9/L Normal 1.0-4.0 [facility] Comment on above: Performed By: #### 2 915245 #### [facility] [address] [place] [address] [place] [address] Lymphocytes/100 WBC (Bld) 20.6 % Normal 14.0-50.0 [facility] Comment on above: Performed By: #### 2 [id number] #### [facility] [address] [place] [address] MCH (RBC) [Entitic mass] 31.4 pg Normal 27.0-34.0 [facility] Comment on above: Performed By: #### 2 [id number] #### [facility] [address] [place] [address] MCHC (RBC) [Mass/Vol] 33.9 g/dL Normal 31.4-36.0 [facility] Comment on above: Performed By: #### 2 [id number] #### [facility] [address] [place] [address] MCV (RBC) [Entitic vol] 92.6 fL Normal 80.0-100.0 [facility] Comment on above: Performed By: #### 2 [id number] #### [facility] [address] [place] [address] Monocytes (Bld) [#/Vol] 0.4 E9/L Normal 0.2-1.0 [facility] Comment on above: Performed By: #### 2 [id number] #### [facility] [address] [place] [address] Neutrophils (Bld) [#/Vol] 4.1 E9/L Normal 2.0-7.5 [facility] Comment on above: Performed By: #### 2 [id number] #### [facility] [address] [place] [address] Neutrophils/100 WBC (Bld) 69.1 % Normal 36.0-75.0 [facility] Comment on above: Performed By: #### 2 [id number] #### [facility] [address] [place] [address] Platelet mean volume (Bld) [Entitic vol] 7.5 fL Normal 6.4-10.8 [facility] Comment on above: Performed By: #### 2 [id number] #### [facility] [address] [place] [address] Platelets (Bld) [#/Vol] 268.0 E9/L Normal 150.0-500.0 [facility] Comment on above: Performed By: #### 2 [id number] #### [facility] [address] [place] [address] RBC (Bld) [#/Vol] 5.3 E12/L Normal 4.3-5.9 [facility] Comment on above: Performed By: #### 2 [id number] #### [facility] [address] [place] [address] WBC corrected for nucl RBC Auto (Bld) [#/Vol] 6.0 E9/L Normal 4.0-11.0 [facility] Comment on above: Performed By: #### 2 [id number] #### [facility] [address] [place] [address] CHEMISTRYOrdered By: SYSTEM SYSTEM on 12-02-2024 Anion gap [Moles/Vol] 16 mmol/L Normal 6 - 16 mEq/L [facility] Calcium [Mass/Vol] 9.0 mg/dL Normal 8.9 - 11.1 mg/dL [facility] Chloride [Moles/Vol] 87 mmol/L Low 101 - 111 mmol/ L [facility] CO2 [Moles/Vol] 25 mmol/L Normal 21 - 31 mmol/L Remis ol Chem Creatinine [Mass/Vol] 1.6 mg/dL High 0.5 - 1.3 mg/dL [facility] eGFR 47 mL/min/1.73 m2 Low >=59mL/min /1.73 m2 [facility] Glucose [Mass/Vol] 751 mg/dL Invalid Interpretation Code 55 - 199 mg/dL [facility] Comment on above: Result Comment: Crit ical Result Verified by Repeat Analysis Critical Result [id number] Called to and read back by: TREMAINE LAND at: 12/02/2024 13:48:34 by:CMK Potassium [Moles/Vol] 4.4 mmol/L Normal 3.5 - 5.3 mmol/L [facility] Sodium [Moles/Vol] 124 mmol/L Low 135 - 145 mmol/L [facility] Urea nitrogen [Mass/Vol] 40 mg/dL High 5 - 21 mg/dL [facility] Urea nitrogen/Creatinine [Mass ratio] 25 mg/mg High 10 - 20 [facility] ED Clinical Summaryon 2024 ED Clinical Summary ED Clinical Summary [place] [id number] ED Clinical Summary Person Information Name: NICOLE LORA/[facility] Age: 64 Years : 1960 Sex: Male Language: Palauan PCP: Mounika Brooke MD Marital Status: Phone: [phone] Visit Id: Visit Reason: Nausea; Dehydration; PT STATES HYDRATION SYMPTONS Speciality: Acuity: 3 Enc Type: Emergency Med Service: Emergency Arrival: 12/02/2024 12:35:03 Discharge: 12/02/2024 15:23:57 LOS: 000 02:48 Checkin: 12/02/2024 12:35:03 Checkout: 12/02/2024 15:23:57 Dispo Type: Left Against Medical Advice EVENTS: Event Name Event Status Request Date/Time Start Date/Time Complete Date/Time Arrive Complete 12/02/2024 12:35:03 12/02/2024 12:35:03 12/02/2024 12:35:03 Document Home Meds Request 12/02/2024 12:35:03 Triage Complete 12/02/2024 12:35:03 12/02/2024 12:47:19 12/02/2024 12:47:19 Registration Complete 12/02/2024 12:40:06 12/02/2024 12:40:06 12/02/2024 12:40:06 Reg Complete Request 12/02/2024 12:40:06 Reg Bed Request Complete 12/02/2024 12:40:06 12/02/2024 12:40:06 12/02/2024 12:40:06 Bed Assign Complete 12/02/2024 12:41:13 12/02/2024 12:41:13 12/02/2024 12:41:13 Dr Exam Complete 12/02/2024 12:41:13 12/02/2024 12:42:02 12/02/2024 12:42:02 RN Exam Complete 12/02/2024 12:41:13 12/02/2024 13:03:46 12/02/2024 13:03:46 Registration Complete 12/02/2024 12:42:02 12/02/2024 12:42:30 12/02/2024 12:42:30 Isolation Screening Request 12/02/2024 12:47:19 Dr Exam Complete 12/02/2024 12:59:55 12/02/2024 12:59:55 12/02/2024 12:59:55 Registration Request 12/02/2024 12:59:55 Meds Admin Complete 12/02/2024 13:06:53 12/02/2024 13:25:48 Pending Labs Complete 12/02/2024 13:06:53 12/02/2024 13:48:43 Lab Complete 12/02/2024 13:06:53 12/02/2024 13:48:43 Patient Care Request 12/02/2024 13:06:53 X-Ray Complete 12/02/2024 13:06:53 12/02/2024 13:22:12 12/02/2024 13:58:21 Pending Labs Complete 12/02/2024 13:16:23 12/02/2024 13:16:23 12/02/2024 13:48:43 Lab Complete 12/02/2024 13:16:23 12/02/2024 13:16:23 12/02/2024 13:48:43 Pending Labs Complete 12/02/2024 13:27:21 12/02/2024 13:27:21 12/02/2024 13:27:22 Meds Admin Complete 12/02/2024 13:51:19 12/02/2024 14:06:25 Wet Read Request 12/02/2024 13:58:21 Discharge Complete 12/02/2024 15:11:52 12/02/2024 15:24:12 12/02/2024 15:24:12 Transfer Complete 12/02/2024 15:24:12 12/02/2024 15:24:12 12/02/2024 15:24:12 ADDRESS: [address] [place] [phone] PHYS DOC NOTES: MEDICAL INFORMATION: Prescriptions Given: New Medications [id number], [address] [place], [place] [id number], [phone] cefdinir (cefdinir 300 mg Cap) 1 Capsules By Mouth every 12 hours for 10 Days. Refills: 0. Medications to Continue Taking That Have Changed [id number], [address], [place] [id number], [phone] START: doxycycline (doxycycline hyclate 100 mg Cap) 1 Capsules By Mouth 2 times a day for 10 Days. Refills: 0. Other Medications START: doxycycline (doxycycline hyclate 100 mg Cap) 1 Capsules By Mouth 2 times a day. Refills: 0. START: doxycycline (doxycycline hyclate 100 mg Tab) Take 1 tab the day before your procedure and 1 tab the day of procedure - afterwards. Refills: 0. START: doxycycline (doxycycline hyclate 100 mg Tab) Start taking 3 days prior to procedure - twice a day x7 days. Refills: 0. Medications to Continue with No Changes Other Medications albuterol (Albuterol (Eqv-ProAir HFA) 90 mcg/inh inhalation aerosol) 2 Puffs Inhalation every 6 hours as needed Wheezing. Refills: 11. albuterol (albuterol 0.083% Inh Harriet 3 mL) 3 Milliliter Inhalation every 4 hours as needed Shortness of breath or wheezing. Refills: 5. albuterol (Ventolin HFA 90 mcg/inh Aerosol) 2 Puffs Inhalation every 4 hours as needed Shortness of breath or wheezing. Refills: 5. atorvastatin (atorvastatin 40 mg Tab) 1 Tablets By Mouth once a day (in the morning). Refills: 0. budesonide-formoterol (Symbicort 160/4.5 inhalation aerosol with adapter) 2 Puffs Inhalation 2 times a day. Refills: 6. duloxetine (duloxetine 60 mg oral delayed release capsule) 1 Capsules By Mouth every day. Refills: 11. furosemide (Lasix 20 mg Tab) 1 Tablets By Mouth once a day (in the evening). Refills: 0. furosemide (Lasix 40 mg Tab) 1 Tablets By Mouth every day. Refills: 0. gabapentin (gabapentin 600 mg Tab) 1 Tablets By Mouth 3 times a day. 30 Day Supply. Refills: 11. insulin aspart (NovoLOG FlexPen 100 units/mL injectable solution) <150 35 units, 150 - 200 40 units, 201-250 45 units, 50 units >250 tidac. Max 150 units a day. Refills: 5. insulin glargine (Toujeo Max SoloStar 300 units/mL subcutaneous solution) 40 Units Subcutaneous 2 times a day. Refills: 5. insulin glargine (Toujeo SoloStar) 50 Units Subcutaneous at bedtime. linagliptin-metFORMIN (Jentadueto 2.5 mg-1000 mg oral tablet) 1 Tablets By Mouth 2 times a day. Refills: 4. Misc Prescription (Freestyle Li (more content not included)... Normal [facility] ED Note-Nursingon 12-02-2024 ED Note-Nursing ED Note-Nursing pt. leaves AMA at this time. paper signed. Normal [facility] ED Patient Summaryon 025 ED Patient Summary ED Patient Summary [place] [id number] Patient Discharge Instructions Person Information Name: NICOLE LORA Age: 64 Years Arrival Date: 12/02/2024 12:35:03 Discharge Diagnosis: Bronchitis; Hyperglycemia; Left against medical advice Primary Care Physician: Mounika Brooke MD Provider Information Primary Provider: Nicole Myers DO [employer]ward[employer] Car:Paddy Betancourt PA-C. The exam and treatment you received in the Emergency Department were for an urgent problem and are not intended as complete care. It is important that you follow up with a doctor, nurse practitioner, or physician???s preschool assistant director for ongoing care. If your symptoms become worse or you do not improve as expected and you are unable to reach your usual health care provider, you should return to the Emergency Department. We are available 24 hours a day. NICOLE LORA has been given the following list of patient education materials, prescriptions and follow-up instructions: Follow-up Instructions: With: Address: When: Mounika Mendy [address] [place] [address] Business (1) In 3 days 12/05/2024 Comments: Call for diagnosis based follow up In the event that this physician does not participate in your insurance network, please consult with your insurance company to find a nearby participating provider. Patient Education Materials: Acute Bronchitis, Adult; Type 2 Diabetes Mellitus, Self-Care, Adult, Ztsj-lv-Lxux; Hyperglycemia A MESSAGE TO ALL PATIENTS REGARDING OPIOIDS PRESCRIPTION OPIOIDS: WHAT YOU NEED TO KNOW Prescription opioids can be used to help relieve ilfilxda-ps-bxjqiy pain and are often prescribed following a surgery or injury, or for certain health conditions. These medications can be an important part of the treatment but also come with serious risks. It is important to work with your healthcare provider to make sure you are getting the safest, most effective care. WHAT ARE THE RISKS AND SIDE EFFECTS OF OPIOID USE? Prescription opioids carry serious risks of addiction and overdose, especially with prolonged use. An opioid overdose, often marked by slowed breathing, can cause sudden . The use of prescription opioids can have a number of side effects as well, even when taken as directed: ??? Tolerance???meaning you might need to take more of the medication for the same pain relief ??? Physical dependence???meaning you have symptoms of withdrawal when a medication is stopped ??? Increased sensitivity to pain ??? Constipation ??? Nausea, vomiting, and dry mouth ??? Sleepiness and dizziness ??? Confusion ??? Depression ??? Low levels of testosterone that can result in lower sex drive, energy, and strength ??? Itching and sweating RISKS ARE GREATER WITH: ??? History of drug misuse, substance use disorder, or overdose ??? Mental health conditions (such as depression or anxiety) ??? Sleep apnea ??? Older age (65 years and older) ??? Avoid alcohol while taking prescription opioids. Also, unless specifically advised by your health care provider, medications to avoid include: ??? Benzodiazepines (such as Xanax or Valium) ??? Muscle relaxants (such as Soma or Flexeril) ??? Hypnotics (such as Ambien or Lunesta) ??? Other prescription opioids KNOW YOUR OPTIONS Talk to your health care provider about ways to manage your pain that don???t involve prescription opioids. Some of these options may actually work better and have fewer risks and side effects. Options may include: ??? Pain relievers such as acetaminophen, ibuprofen, and naproxen ??? Some medication that are also used for depression or seizures ??? Physical therapy and exercise ??? Cognitive behavioral therapy, a psychological, goal-directed approach, in which patients learn how to modify physical, behavioral, and emotional triggers of pain and stress. IF YOU ARE PRESCRIBED OPIOIDS FOR PAIN: ??? Never take opioids in greater amounts or more often than prescribed. ??? Follow up with your primary health care provider. o Work together to create a plan on how to manage your pain. o Talk about ways to help manage your pain that don???t involve prescription opioids. o Talk about any and all concerns and side effects. ??? Help prevent misuse and abuse o Never sell or share prescription opioids. o Never use another person???s prescription opioids. ??? Store prescription opioids in a secure place and out of reach of others (this may include visitors, children, friends, and family). ??? Safely dispose of unused prescription opioids: Find your community drug take-back program or your pharmacy mail-back program, or flush them down the toilet, following guidance from the Food and Drug Administration (www.fda.gov/Drugs/Re sourcesForYou). ??? Visit www.cdc.gov/drugoverd ose to cj (more content not included)... Normal [facility] Extra Blueon 12-02-2024 Tube Collected Plasma Yes Invalid Interpretation Code [facility] Comment on above: Performed By: #### 1 [id number] #### [facility] [address] [place] [address] HEMATOLOGYOrdered By: SYSTEM SYSTEM on 12-02-2024 Basophils/100 WBC (Bld) 0.6 % Normal 0.0 - 2.0 % Remisol Heme Basophils/Leukocytes Auto (Bld) [Pure # fraction] 0.0 E9/L Normal 0.0 - 0.2 E9/L Remisol Heme Eosinophils (Bld) [#/Vol] 0.2 E9/L Normal 0.0 - 0.5 E9/L Remisol Heme Eosinophils/100 WBC (Bld) 2.8 % Normal 0.0 - 8.0 % Remisol Heme Erythrocyte distribution width (RBC) [Ratio] 13.4 % Normal 10.9 - 14.2 % Remisol Heme Hematocrit (Bld) [Volume fraction] 48.9 % Normal 37.7 - 49.0 % Remisol Heme Hemoglobin (Bld) [Mass/Vol] 16.6 g/dL Normal 13.5 - 17.5 gm/dL Remisol Heme Lymphocytes (Bld) [#/Vol] 1.2 E9/L Normal 1.0 - 4.0 E9/L Remisol Heme Lymphocytes/100 WBC (Bld) 20.6 % Normal 14.0 - 50.0 % Remisol Heme MCH (RBC) [Entitic mass] 31.4 pg Normal 27.0 - 34.0 pg Remisol Heme MCHC (RBC) [Mass/Vol] 33.9 g/dL Normal 31.4 - 36.0 gm/dL Remisol Heme MCV (RBC) [Entitic vol] 92.6 fL Normal 80.0 - 100.0 fL Remisol Heme Monocytes (Bld) [#/Vol] 0.4 E9/L Normal 0.2 - 1.0 E9/L Remisol Heme Monocytes/100 WBC (Bld) 6.9 % Normal 4.0 - 14.0 % Remisol Heme Neutrophils (Bld) [#/Vol] 4.1 E9/L Normal 2.0 - 7.5 E9/L Remisol Heme Neutrophils/100 WBC (Bld) 69.1 % Normal 36.0 - 75.0 % Remisol Heme Platelet mean volume (Bld) [Entitic vol] 7.5 fL Normal 6.4 - 10.8 fL Remisol Heme Platelets (Bld) [#/Vol] 268.0 E9/L Normal 150.0 - 500.0 E9/L Remisol Heme RBC (Bld) [#/Vol] 5.3 E12/L Normal 4.3 - 5.9 E12/L Re misol Heme WBC corrected for nucl RBC Auto (Bld) [#/Vol] 6.0 E9/L Normal 4.0 - 11.0 E9/L Remisol Heme XR Chest Single Viewon 12-02 XR Chest Single View Exam Date/Time: 12/02/2024 13:58 EDT Reason for Exam: Chest pain Report IMPRESSION: PATCHY AND LINEAR OPACITIES OF BOTH LUNGS SIMILAR TO PRIOR EXAMINATION LIKELY REPRESENTING ATELECTASIS AND/OR SCARRING UNLESS THE PATIENT HAS SIGNS/SYMPTOMS OF PNEUMONIA. EXAM: XR Chest Single View History: Cough. Chest pain. Technique: Portable AP view of the chest. Comparison: 06/21/2024 Findings: The cardiomediastinal silhouette is within normal limits. Patchy and linear opacities similar to prior examination. No pneumothorax or pleural effusion. No acute osseous abnormality. Ordering Provider: Paddy Betancourt FINAL REPORT Dictated: 12/02/2024 3:40 pm Shaquille Broussard DO Signed (Electronic Signature): 12/02/2024 3:40 pm Signed by: Shaquille Broussard DO Transcribed by: KAT Technologist: PORSHA Normal [facility] eGFRon 12-02-2024 eGFR 47 mL/min/1.73 m2 Low >=59 [facility] Comment on above: Performed By: #### 1 [id number] #### [facility] [address] [place] [address] Glucose (Bld) [Mass/Vol]on 0 09-04-2024 Glucose Blood, POC 406 mg/dL [facility] - Hematology and Cell countson 09-04-2024 HbA1c (Bld) [Mass fraction] 12.9 % [facility] No Panel Informationon 09-04 [facility] Left eye Ophthalmologic jemma tmenton 07-22-2024 [facility] Radiology Study observation (narrative) [facility] Optical coherence tomography study reporton 07-22-2024 [facility] Left Eye Quality was good. Scan locations included subfoveal, juxtafoveal, extrafoveal, temporal. Progression has been stable. Notes Proliferative diabetic retinopathy of left eye [facility] Radiology Study observation (narrative) [facility] Glucose (Bld) [Mass/Vol]Orde red By: Amanda Cesar on 07-15-2024 Glucose Blood, POC 243 mg/dL [facility] ED Clinical Summaryon 2023 ED Clinical Summary ED Clinical Summary [address] [address] ED Clinical Summary Person Information Name: NICOLE LORA/New_Eduard Age: 64 Years : 1960 Sex: Male Language: Palauan PCP: Mounika Brooke MD Marital Status: Phone: [phone] Visit Id: Visit Reason: Arm pain-swelling; RIGHT ARM PAIN Speciality: Acuity: 4 Enc Type: Emergency Med Service: Emergency Arrival: 07/09/2024 14:35:34 Discharge: 07/09/2024 16:21:18 LOS: 000 01:46 Checkin: 07/09/2024 14:35:34 Checkout: 07/09/2024 16:21:18 Dispo Type: Home (Routine DC) EVENTS: Event Name Event Status Request Date/Time Start Date/Time Complete Date/Time Arrive Complete 07/09/2024 14:35:34 07/09/2024 14:35:34 07/09/2024 14:35:34 Document Home Meds Request 07/09/2024 14:35:34 Triage Complete 07/09/2024 14:35:34 07/09/2024 14:44:07 07/09/2024 14:44:07 Bed Assign Complete 07/09/2024 14:38:42 07/09/2024 14:38:42 07/09/2024 14:38:42 Dr Exam Complete 07/09/2024 14:38:42 07/09/2024 14:40:32 07/09/2024 14:40:32 RN Exam Complete 07/09/2024 14:38:42 07/09/2024 14:58:56 07/09/2024 14:58:56 Registration Complete 07/09/2024 14:40:32 07/09/2024 15:07:32 07/09/2024 15:07:32 Dr Exam Complete 07/09/2024 14:40:58 07/09/2024 14:40:58 07/09/2024 14:40:58 Isolation Screening Request 07/09/2024 14:44:08 X-Ray Complete 07/09/2024 15:01:33 07/09/2024 15:23:23 07/09/2024 15:44:55 Meds Admin Complete 07/09/2024 15:01:33 07/09/2024 16:20:52 Reg Complete Request 07/09/2024 15:07:32 Reg Bed Request Complete 07/09/2024 15:07:32 07/09/2024 15:07:32 07/09/2024 15:07:32 Wet Read Complete 07/09/2024 15:44:55 07/09/2024 15:49:05 07/09/2024 15:49:05 Patient Care Request 07/09/2024 16:11:30 Discharge Complete 07/09/2024 16:11:34 07/09/2024 16:21:24 07/09/2024 16:21:24 Transfer Complete 07/09/2024 16:21:24 07/09/2024 16:21:24 07/09/2024 16:21:24 ADDRESS: [address] [place] [id number] PHYS DOC NOTES: MEDICAL INFORMATION: Prescriptions Given: New Medications [id number], [address] [place], [place] [id number], [phone] acetaminophen-oxycodo ne (Percocet 5 mg-325 mg oral tablet) 1 Tablets By Mouth every 6 hours as needed as needed for pain for 3 Days. Refills: 0. Medications to Continue with No Changes Other Medications albuterol (Albuterol (Eqv-ProAir HFA) 90 mcg/inh inhalation aerosol) 2 Puffs Inhalation every 6 hours as needed Wheezing. Refills: 11. albuterol (albuterol 0.083% Inh Harriet 3 mL) 3 Milliliter Inhalation every 4 hours as needed Shortness of breath or wheezing. Refills: 5. albuterol (Ventolin HFA 90 mcg/inh Aerosol) 2 Puffs Inhalation every 4 hours as needed Shortness of breath or wheezing. Refills: 5. atorvastatin (atorvastatin 40 mg Tab) 1 Tablets By Mouth once a day (in the morning). Refills: 0. budesonide-formoterol (Symbicort 160/4.5 inhalation aerosol with adapter) 2 Puffs Inhalation 2 times a day. Refills: 6. doxycycline (doxycycline hyclate 100 mg Cap) 1 Capsules By Mouth 2 times a day. Refills: 0. doxycycline (doxycycline hyclate 100 mg Tab) Take 1 tab the day before your procedure and 1 tab the day of procedure - afterwards. Refills: 0. doxycycline (doxycycline hyclate 100 mg Tab) Start taking 3 days prior to procedure - twice a day x7 days. Refills: 0. duloxetine (duloxetine 60 mg oral delayed release capsule) 1 Capsules By Mouth every day. Refills: 11. furosemide (Lasix 20 mg Tab) 1 Tablets By Mouth once a day (in the evening). Refills: 0. furosemide (Lasix 40 mg Tab) 1 Tablets By Mouth every day. Refills: 0. gabapentin (gabapentin 600 mg Tab) 1 Tablets By Mouth 3 times a day. 30 Day Supply. Refills: 11. insulin aspart (NovoLOG FlexPen 100 units/mL injectable solution) <150 35 units, 150 - 200 40 units, 201-250 45 units, 50 units >250 tidac. Max 150 units a day. Refills: 5. insulin glargine (Toujeo Max SoloStar 300 units/mL subcutaneous solution) 40 Units Subcutaneous 2 times a day. Refills: 5. insulin glargine (Toujeo SoloStar) 50 Units Subcutaneous at bedtime. linagliptin-metFORMIN (Jentadueto 2.5 mg-1000 mg oral tablet) 1 Tablets By Mouth 2 times a day. Refills: 4. Misc Prescription (Freestyle Sage 2 [place]) Use daily with sensor. Refills: 0. Misc Prescription (Freestyle Sage 2 Sensors) Apply one q 14 days. Refills: 3. Misc Prescription (Glucometer test strips) Test TID DX E11.40 on insulin. Refills: 11. Misc Prescription (Glucometer) Dispense 1 Glucometer. Refills: 0. Misc Prescription (Insulin Pen [place] 31g x 8 mm) Use up to 4 daily. Refills: 4. Misc Prescription (lancets) test blood sugar tid dx E11.9 on insulin. Refills: 11. pantoprazole (Protonix 40 mg Tab-DR) 1 Tablets By Mouth every day. Refills: 6. ropinirole (ropinirole 1 mg Tab) 1 Tablets By Mouth once a day (in the evening). Refills: 4. tizanidine (Zanaflex 2 mg oral capsule) 1 Capsules By Mouth every 8 hours a (more content not included)... Normal [facility] ED Note-Physicianon 07-09-20 ED Note-Physician ED Note-Physician Basic Information Time Seen: Rudi ENGLEJesus 07/09/2024 14:40 Chief Complaint c/o right arm pain after exercising 2 days ago. has been taking motrin with minimal relief History of Present Illness 64-year-old male comes to the ED for evaluation of right shoulder pain. The patient states that he wants to press himself off the ground the other day and felt pain to the right shoulder area. He has had persistent pain since that time. Good range of motion with his does worsen his discomfort. No weakness or paresthesias. No chest pain or shortness of breath. No other complaints or concerns. Review of Systems A 10 point review of systems is negative except as noted above. Medical and Surgical History: Reviewed and noted Social history: Lives at home Tobacco: Denies Physical Exam Vitals & Measurements T: 36.7 ???C(Oral) HR: 73(Peripheral) RR: 20 BP: 196/93 SpO2: 96% HT: 183 cm WT: 132.4 kg BMI: 39.54 Nurses notes and vital signs reviewed and patient is not hypoxic. General: The patient appears well, resting comfortably. Skin: Warm, dry. Head: Atraumatic. Neck: No JVD. Eye: Normal conjunctiva. Ears, Nose, Mouth, and Throat: Moist mucous membranes. Cardiovascular: Strong distal pulses. Chest wall: Respiratory: Respirations are nonlabored. Back: Normal range of motion. Musculoskeletal: Diffuse tenderness over the right shoulder. Range of motion is intact but with difficulty due to pain. No soft tissue swelling. No bony instability. Good distal pulses. Gastrointestinal: Urological: Neurological: Awake and alert. No focal deficits. Follows commands. Psychiatric: Cooperative. Medical Decision Making X-ray was obtained and reviewed by radiologist. Likely tendinitis. He is treated with pain medications and orthopedic referral. Patient was encouraged to return to the ED if symptoms worsen or change. Assessment/Plan Left shoulder pain (M25.512: Pain in left shoulder) Tendinitis (M77.9: Enthesopathy, unspecified) Ordered: acetaminophen-oxycodo ne, 1 tab(s), Oral, q6hr as needed for pain for 3 day(s), 10 tab(s), Refill(s) 0, [id number], 183, cm, 07/09/24 14:44:00 EST, Height/Length Dosing, 132.4, kg, 07/09/24 14:44:00 EST, Weight Dosing Orders: acetaminophen-oxycodo ne, 1 tab(s), Tab, Oral, Once, Stop date 07/09/24 15:01:00 EST, STAT, Start date 07/09/24 15:01:00 EST Apply Sling XR Shoulder Complete Right Disposition Plan Patient Discharge Condition Disposition: Discharged home Condition: Improved and stable Counseled: Patient and/or family were counseled to workup, results, treatment plan and follow-up recommendations Discharge Prescription List Prescriptions Percocet 5 mg-325 mg oral tablet, 1 tab(s), Oral, q6hr, PRN Follow-up With When Contact Information Zak Ishmael In 3 days 07/12/2024 EST [address] [place], [place] [address] (1) Additional Instructions: Patient Education Tendinitis Attestation I performed a substantive part of the MDM during the patient???s E/M visit. I personally made or approved the documented management plan and acknowledge its risk of complications. (Independent Interpretation) My (EKG/X-Ray/US/CT) interpretation as above. (Discussion) Management/test interpretation discussed with APC. This report was transcribed using voice recognition software. Every effort was made to ensure accuracy, however, inadvertently computerized automotive refinish technician mistakes may be present. Appropriate healthcare PPE was used in evaluating this patient. Problem List/Past Medical History Ongoing Acquired absence of other right toe(s) Acute hypoxemic respiratory failure Acute on chronic respiratory failure with hypercapnia AMY (acute kidney injury) Asthma Asthma At risk for falls BPH with urinary obstruction Chronic cough Chronic GERD Chronic hypoxemic respiratory failure Chronic kidney disease, stage 3b CKD (chronic kidney disease) Colonoscopy refused Cramps of lower extremity Diabetes mellitus with neuropathy Elevated brain natriuretic peptide (BNP) level Feeling of incomplete bladder emptying GERD (gastroesophageal reflux disease) GERD - Gastro-esophageal reflux disease History of UTI Hyperlipidemia Hypertension Long-term insulin use Low back pain 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 mellitus Morbid obesity Onychomycosis TC (obstructive sleep apnea) PVD (pulmonary valve disease) Renal cyst Respiratory acidosis Restless leg syndrome T2DM (type 2 diabetes mellitus) Type 2 diabetes mellitus Type 2 diabetes mellitus with hyperglycemia Type 2 diabetes mellitus with hyperlipidemia Type 2 diabetes mellitus with morbid obesity Type 2 diabetes mellitus with stage 3 chronic kidney disease Urinary retention Varicose veins of lower extremity Historical Major depressive disorder, severe (more content not included)... Normal [facility] Comment on above: Result Comment: Elec tronically Signed By: Jesus Grijalva PA-C\.br\Date and Time Signed: 07/09/24 16:16 EST\.br\Electronically Co-Signed By: Nicole Myers DO\.br\Date and Time Co-Signed: 07/09/24 18:49 EST ED Patient Summaryon 024 ED Patient Summary ED Patient Summary [address] [address] Patient Discharge Instructions Person Information Name: NICOLE LORA Age: 64 Years Arrival Date: 07/09/2024 14:35:34 Discharge Diagnosis: Left shoulder pain; Tendinitis Primary Care Physician: Mounika Brooke MD Provider Information Primary Provider: Nicole Myers DO Advanced Steward/[employer] Car:Jesus Grijalva PA-C The exam and treatment you received in the Emergency Department were for an urgent problem and are not intended as complete care. It is important that you follow up with a doctor, nurse practitioner, or physician???s preschool assistant director for ongoing care. If your symptoms become worse or you do not improve as expected and you are unable to reach your usual health care provider, you should return to the Emergency Department. We are available 24 hours a day. NICOLE LORA has been given the following list of patient education materials, prescriptions and follow-up instructions: Follow-up Instructions: With: Address: When: Zak Quiñones [address] [place], [place] [id number] Business (1) In 3 days 07/12/2024 In the event that this physician does not participate in your insurance network, please consult with your insurance company to find a nearby participating provider. Patient Education Materials: [employer] A MESSAGE TO ALL PATIENTS REGARDING OPIOIDS PRESCRIPTION OPIOIDS: WHAT YOU NEED TO KNOW Prescription opioids can be used to help relieve iyaijyzn-yl-hcgtsa pain and are often prescribed following a surgery or injury, or for certain health conditions. These medications can be an important part of the treatment but also come with serious risks. It is important to work with your healthcare provider to make sure you are getting the safest, most effective care. WHAT ARE THE RISKS AND SIDE EFFECTS OF OPIOID USE? Prescription opioids carry serious risks of addiction and overdose, especially with prolonged use. An opioid overdose, often marked by slowed breathing, can cause sudden . The use of prescription opioids can have a number of side effects as well, even when taken as directed: ??? Tolerance???meaning you might need to take more of the medication for the same pain relief ??? Physical dependence???meaning you have symptoms of withdrawal when a medication is stopped ??? Increased sensitivity to pain ??? Constipation ??? Nausea, vomiting, and dry mouth ??? Sleepiness and dizziness ??? Confusion ??? Depression ??? Low levels of testosterone that can result in lower sex drive, energy, and strength ??? Itching and sweating RISKS ARE GREATER WITH: ??? History of drug misuse, substance use disorder, or overdose ??? Mental health conditions (such as depression or anxiety) ??? Sleep apnea ??? Older age (65 years and older) ??? Avoid alcohol while taking prescription opioids. Also, unless specifically advised by your health care provider, medications to avoid include: ??? Benzodiazepines (such as Xanax or Valium) ??? Muscle relaxants (such as Soma or Flexeril) ??? Hypnotics (such as Ambien or Lunesta) ??? Other prescription opioids KNOW YOUR OPTIONS Talk to your health care provider about ways to manage your pain that don???t involve prescription opioids. Some of these options may actually work better and have fewer risks and side effects. Options may include: ??? Pain relievers such as acetaminophen, ibuprofen, and naproxen ??? Some medication that are also used for depression or seizures ??? Physical therapy and exercise ??? Cognitive behavioral therapy, a psychological, goal-directed approach, in which patients learn how to modify physical, behavioral, and emotional triggers of pain and stress. IF YOU ARE PRESCRIBED OPIOIDS FOR PAIN: ??? Never take opioids in greater amounts or more often than prescribed. ??? Follow up with your primary health care provider. o Work together to create a plan on how to manage your pain. o Talk about ways to help manage your pain that don???t involve prescription opioids. o Talk about any and all concerns and side effects. ??? Help prevent misuse and abuse o Never sell or share prescription opioids. o Never use another person???s prescription opioids. ??? Store prescription opioids in a secure place and out of reach of others (this may include visitors, children, friends, and family). ??? Safely dispose of unused prescription opioids: Find your community drug take-back program or your pharmacy mail-back program, or flush them down the toilet, following guidance from the Food and Drug Administration (www.fda.gov/Drugs/Re sourcesForYou). ??? Visit www.cdc.gov/drugoverd ose to learn about the risks of opioids abuse and overdose. ??? If you believe you may be struggling with addiction, tell your health doggy daycare activities director and ask for ernst (more content not included)... Normal [facility] XR Shoulder Complete Righton 07-09-2024 XR Shoulder Complete Right Exam Date/Time: 07/09/2024 15:44 EST Reason for Exam: Pain, Traumatic Report IMPRESSION: No acute osseous findings. Possible calcific tendinosis. EXAMINATION/TECHNIQUE : XR Shoulder Complete Right HISTORY: Right arm pain. COMPARISON: None RESULT: No acute fracture. No dislocation. Glenohumeral joint space grossly maintained within limits of positioning. Mild to moderate degenerative changes of the acromioclavicular joint with undersurface osteophytes. Density projecting near the humeral head laterally on the axillary view, possible calcific tendinosis. Acromiohumeral interval grossly maintained. Visualized lung grossly clear. Soft tissues unremarkable. No other significant abnormality. Ordering Provider: Jesus Grijalva FINAL REPORT Dictated: 07/09/2024 3:58 pm Primo Robles MD Signed (Electronic Signature): 07/09/2024 3:58 pm Signed by: Primo Robles MD Transcribed by: DP Technologist: TORI Technical Comments Radiation Dose: Ka,r in mGy = na DAP = na Normal [facility] ED Clinical Summaryon 2023 ED Clinical Summary ED Clinical Summary [place] [id number] ED Clinical Summary Person Information Name: NICOLE LORA [facility] Age: 64 Years : 1960 Sex: Male Language: Palauan PCP: Mounika Brooke MD Marital Status: Phone: [phone] Visit Id: Visit Reason: Rib/trunk pain-swelling; RIB PAIN - GOT XRAYS YESTERDAY Speciality: Acuity: 4 Enc Type: Emergency Med Service: Emergency Arrival: 06/23/2024 13:36:38 Discharge: 06/23/2024 14:01:02 LOS: 000 00:25 Checkin: 06/23/2024 13:36:38 Checkout: 06/23/2024 14:01:02 Dispo Type: Home (Routine DC) EVENTS: Event Name Event Status Request Date/Time Start Date/Time Complete Date/Time Arrive Complete 06/23/2024 13:36:38 06/23/2024 13:36:38 06/23/2024 13:36:38 Document Home Meds Request 06/23/2024 13:36:38 Triage Complete 06/23/2024 13:36:38 06/23/2024 13:45:08 06/23/2024 13:45:08 Bed Assign Complete 06/23/2024 13:39:22 06/23/2024 13:39:22 06/23/2024 13:39:22 Dr Exam Complete 06/23/2024 13:39:22 06/23/2024 13:39:28 06/23/2024 13:39:28 RN Exam Complete 06/23/2024 13:39:22 06/23/2024 13:56:38 06/23/2024 13:56:38 Registration Complete 06/23/2024 13:39:28 06/23/2024 13:41:31 06/23/2024 13:41:31 Reg Complete Request 06/23/2024 13:41:31 Reg Bed Request Complete 06/23/2024 13:41:31 06/23/2024 13:41:31 06/23/2024 13:41:31 Isolation Screening Request 06/23/2024 13:45:08 Dr Exam Complete 06/23/2024 13:45:10 06/23/2024 13:45:10 06/23/2024 13:45:10 Registration Request 06/23/2024 13:45:10 Discharge Complete 06/23/2024 13:54:11 06/23/2024 14:01:17 06/23/2024 14:01:17 Transfer Complete 06/23/2024 14:01:17 06/23/2024 14:01:17 06/23/2024 14:01:17 ADDRESS: [address] [place] [phone] PHYS DOC NOTES: MEDICAL INFORMATION: Prescriptions Given: New Medications [facility] #[id number], [address] [place], [place] [id number], [phone] acetaminophen-oxycodo ne (acetaminophen-oxycod one 325 mg-5 mg Tab) 1 Tablets By Mouth every 6 hours as needed for pain for 3 Days. Refills: 0. Medications to Continue Taking That Have Changed [facility] #[id number], [address] [place], [place] [id number], [phone] START: doxycycline (doxycycline hyclate 100 mg Cap) 1 Capsules By Mouth 2 times a day. Refills: 0. Other Medications START: doxycycline (doxycycline hyclate 100 mg Tab) Take 1 tab the day before your procedure and 1 tab the day of procedure - afterwards. Refills: 0. START: doxycycline (doxycycline hyclate 100 mg Tab) Start taking 3 days prior to procedure - twice a day x7 days. Refills: 0. Medications to Continue with No Changes Other Medications albuterol (Albuterol (Eqv-ProAir HFA) 90 mcg/inh inhalation aerosol) 2 Puffs Inhalation every 6 hours as needed Wheezing. Refills: 11. albuterol (albuterol 0.083% Inh Harriet 3 mL) 3 Milliliter Inhalation every 4 hours as needed Shortness of breath or wheezing. Refills: 5. albuterol (Ventolin HFA 90 mcg/inh Aerosol) 2 Puffs Inhalation every 4 hours as needed Shortness of breath or wheezing. Refills: 5. atorvastatin (atorvastatin 40 mg Tab) 1 Tablets By Mouth once a day (in the morning). Refills: 0. budesonide-formoterol (Symbicort 160/4.5 inhalation aerosol with adapter) 2 Puffs Inhalation 2 times a day. Refills: 6. duloxetine (duloxetine 60 mg oral delayed release capsule) 1 Capsules By Mouth every day. Refills: 11. furosemide (Lasix 20 mg Tab) 1 Tablets By Mouth once a day (in the evening). Refills: 0. furosemide (Lasix 40 mg Tab) 1 Tablets By Mouth every day. Refills: 0. gabapentin (gabapentin 600 mg Tab) 1 Tablets By Mouth 3 times a day. 30 Day Supply. Refills: 11. insulin aspart (NovoLOG FlexPen 100 units/mL injectable solution) <150 35 units, 150 - 200 40 units, 201-250 45 units, 50 units >250 tidac. Max 150 units a day. Refills: 5. insulin glargine (Toujeo Max SoloStar 300 units/mL subcutaneous solution) 40 Units Subcutaneous 2 times a day. Refills: 5. insulin glargine (Toujeo SoloStar) 50 Units Subcutaneous at bedtime. linagliptin-metFORMIN (Jentadueto 2.5 mg-1000 mg oral tablet) 1 Tablets By Mouth 2 times a day. Refills: 4. Misc Prescription (Freestyle Sage 2 [place]) Use daily with sensor. Refills: 0. Misc Prescription (Freestyle Sage 2 Sensors) Apply one q 14 days. Refills: 3. Misc Prescription (Glucometer test strips) Test TID DX E11.40 on insulin. Refills: 11. Misc Prescription (Glucometer) Dispense 1 Glucometer. Refills: 0. Misc Prescription (Insulin Pen [place] 31g x 8 mm) Use up to 4 daily. Refills: 4. Misc Prescription (lancets) test blood sugar tid dx E11.9 on insulin. Refills: 11. pantoprazole (Protonix 40 mg Tab-DR) 1 Tablets By Mouth every day. Refills: 6. ropinirole (ropinirole 1 mg Tab) 1 Tablets By Mouth once a day (in the evening). Refills: 4. tizanidine (Zanaflex 2 mg oral capsule) 1 Capsules By Mouth every 8 hours as needed Muscle pain. PATIENT EDUCATION INFORMATION: Inst (more content not included)... Normal [facility] ED Note-Physicianon 06-23-20 ED Note-Physician ED Note-Physician Basic Information Time Seen: Greyson ENGLE, Paddy José 06/23/2024 13:39 Chief Complaint pt has rib pain after hitting chest on dresser 5 days ago History of Present Illness 64-year-old female reports emergency department with complaints of left-sided rib pain. Reports that he had a stress on a dresser about 5 days ago. Reports low back cough as well. States that having chest pain on his ribs where he did at this area. Reports a bruise. Reports that otherwise has been doing well. He states that it hurts to take a deep breath. Reports x-rays were taken yesterday, but he cannot wait for the results. Review of Systems No other aggravating or relieving factors no other associated symptoms no other prior treatments or complaints. Family: Reviewed and noncontributory Social: lives at home Review of systems negative unless otherwise specified in the HPI. Physical Exam Vitals & Measurements T: 36.5 ???C(Oral) HR: 71(Peripheral) RR: 22 BP: 182/79 SpO2: 92% HT: 183 cm WT: 143 kg BMI: 42.7 General: The patient appears well and in no apparent distress. Patient is resting comfortably in chair. Afebrile Skin: Warm, dry, no pallor noted. Head: Normocephalic, atraumatic Neck: No JVD Eye: PERRLA, EOMI ENT: Moist mucus membranes Cardiovascular: Regular rate. normal peripheral perfusion Respiratory: No respiratory distress. no accessory muscle use. no obvious audible wheezing. Lung sounds clear Chest Wall: no deformity. Mild tenderness on palpation of the anterior lateral chest wall around the fourth fifth rib. Musculoskeletal: normal ROM, no deformity, no swelling GI: No obvious distention Neurological: A&O. moves all extremities equal strength and symmetry Psychiatric: Cooperative and appropriate Medical Decision Making MEDICAL DECISION MAKING Number and Complexity of Problems Differential Diagnosis: MDM Data External documents reviewed: [] My EKG interpretation: [] My CT interpretation: [] My X-ray interpretation: Reviewed previous x-rays My Ultrasound interpretation: [] Decision rules/scores evaluated: [] Discussed with: [] Treatment and Disposition ED Course: 64-year-old male reports to the emergency department with complaints of left-sided rib pain. States that he hit a dresser a couple days ago, having rib pain. Reports x-rays were performed. I was able to review previous x-rays, that showed no acute fracture. There was concerns for lower lobe atelectasis versus pneumonia. Discussed likely more atelectasis to the patient, but he did want antibiotics for coverage. Due to this, I did send him in doxycycline due to penicillin allergy. For pain, patient will be treated with Percocet for rib contusion. Discussed return precautions. Follow-up with your primary care provider in 3 to 5 days. If symptoms worsen, do not improve, or new symptoms arise please report back to emergency department for further evaluation. The patient was understanding and agreeable to plan moving forward. Shared decision making: [] Code status: [] Assessment/Plan Contusion of rib on left side (S20.212A: Contusion of left front wall of thorax, initial encounter) Pneumonia (J18.9: Pneumonia, unspecified organism) Orders: acetaminophen-oxycodo ne, 1 tab(s), Oral, q6hr for pain for 3 day(s), 12 tab(s), Refill(s) 0, [facility] #[id number], 183, cm, 06/23/24 13:45:00 EST, Height/Length Dosing, 143, kg, 06/23/24 13:45:00 EST, Weight Dosing doxycycline, 100 mg = 1 cap(s), Oral, BID, # 20 cap(s), Refills(s) 0, Pharmacy: [facility] #[id number], 183, cm, 06/23/24 13:45:00 EST, Height/Length Dosing, 143, kg, 06/23/24 13:45:00 EST, Weight Dosing Disposition Plan Patient Discharge Condition Stable Discharge Disposition To home Discharge Prescription List Prescriptions acetaminophen-oxycodo ne 325 mg-5 mg Tab, 1 tab(s), Oral, q6hr, PRN doxycycline hyclate 100 mg Cap, 100 mg= 1 cap(s), Oral, BID Follow-up With When Contact Information Mounika Brooke In 3 days 06/26/2024 EST [address] [address]- Business (1) Additional Instructions: Call Dr for diagnosis based follow up Patient Education Community-Acquired Pneumonia, Adult, Ozwr-cx-Ubmh Rib Contusion Attestation Patient seen and evaluated by the physician preschool assistant director. Attending physician was present in the emergency department and supervised care. This visit was performed by both the physician and an APC. I performed all aspects of the MDM as documented. This report was transcribed using voice recognition software. Every effort was made to ensure accuracy, however, inadvertently computerized automotive refinish technician mistakes may be present. Appropriate healthcare PPE was used in evaluating this patient. The patient was placed in a mask. The healthcare provider was wearing mask, gloves, and utilizing proper hand hygiene. All equipment was properly cleansed. I performed a substantive part of the MDM during (more content not included)... Normal [facility] Comment on above: Result Comment: Elec tronically Signed By: Paddy Betancourt PA-C\.br\Date and Time Signed: 06/23/24 14:07 EST\.br\Electronically Co-Signed By: Alejandro Silva M.D.\.br\Date and Time Co-Signed: 06/23/24 14:26 EST ED Patient Summaryon 024 ED Patient Summary ED Patient Summary [address] [address] Patient Discharge Instructions Person Information Name: NICOLE LORA Age: 64 Years Arrival Date: 06/23/2024 13:36:38 Discharge Diagnosis: Contusion of rib on left side; Pneumonia Primary Care Physician: Mounika Brooke MD Provider Information Primary Provider: Alejandro Silva M.D. Advanced Steward/Stewardess Club Car:None The exam and treatment you received in the Emergency Department were for an urgent problem and are not intended as complete care. It is important that you follow up with a doctor, nurse practitioner, or physician???s preschool assistant director for ongoing care. If your symptoms become worse or you do not improve as expected and you are unable to reach your usual health care provider, you should return to the Emergency Department. We are available 24 hours a day. NICOLE LORA has been given the following list of patient education materials, prescriptions and follow-up instructions: Follow-up Instructions: With: Address: When: Mounika Brooke [address] [place], [place] [id number] [facility] (1) In 3 days 06/26/2024 Comments: Call Dr for diagnosis based follow up In the event that this physician does not participate in your insurance network, please consult with your insurance company to find a nearby participating provider. Patient Education Materials: Community-Acquired Pneumonia, Adult, Byav-it-Ofrb; Rib Contusion A MESSAGE TO ALL PATIENTS REGARDING OPIOIDS PRESCRIPTION OPIOIDS: WHAT YOU NEED TO KNOW Prescription opioids can be used to help relieve tyroqzjf-mm-hemvav pain and are often prescribed following a surgery or injury, or for certain health conditions. These medications can be an important part of the treatment but also come with serious risks. It is important to work with your healthcare provider to make sure you are getting the safest, most effective care. WHAT ARE THE RISKS AND SIDE EFFECTS OF OPIOID USE? Prescription opioids carry serious risks of addiction and overdose, especially with prolonged use. An opioid overdose, often marked by slowed breathing, can cause sudden . The use of prescription opioids can have a number of side effects as well, even when taken as directed: ??? Tolerance???meaning you might need to take more of the medication for the same pain relief ??? Physical dependence???meaning you have symptoms of withdrawal when a medication is stopped ??? Increased sensitivity to pain ??? Constipation ??? Nausea, vomiting, and dry mouth ??? Sleepiness and dizziness ??? Confusion ??? Depression ??? Low levels of testosterone that can result in lower sex drive, energy, and strength ??? Itching and sweating RISKS ARE GREATER WITH: ??? History of drug misuse, substance use disorder, or overdose ??? Mental health conditions (such as depression or anxiety) ??? Sleep apnea ??? Older age (65 years and older) ??? Avoid alcohol while taking prescription opioids. Also, unless specifically advised by your health care provider, medications to avoid include: ??? Benzodiazepines (such as Xanax or Valium) ??? Muscle relaxants (such as Soma or Flexeril) ??? Hypnotics (such as Ambien or Lunesta) ??? Other prescription opioids KNOW YOUR OPTIONS Talk to your health care provider about ways to manage your pain that don???t involve prescription opioids. Some of these options may actually work better and have fewer risks and side effects. Options may include: ??? Pain relievers such as acetaminophen, ibuprofen, and naproxen ??? Some medication that are also used for depression or seizures ??? Physical therapy and exercise ??? Cognitive behavioral therapy, a psychological, goal-directed approach, in which patients learn how to modify physical, behavioral, and emotional triggers of pain and stress. IF YOU ARE PRESCRIBED OPIOIDS FOR PAIN: ??? Never take opioids in greater amounts or more often than prescribed. ??? Follow up with your primary health care provider. o Work together to create a plan on how to manage your pain. o Talk about ways to help manage your pain that don???t involve prescription opioids. o Talk about any and all concerns and side effects. ??? Help prevent misuse and abuse o Never sell or share prescription opioids. o Never use another person???s prescription opioids. ??? Store prescription opioids in a secure place and out of reach of others (this may include visitors, children, friends, and family). ??? Safely dispose of unused prescription opioids: Find your community drug take-back program or your pharmacy mail-back program, or flush them down the toilet, following guidance from the Food and Drug Administration (www.fda.gov/Drugs/Re sourcesForYou). ??? Visit www.cdc.gov/drugoverd ose to learn about the risks of opioids abuse and overdose. ??? If (more content not included)... Normal [facility] HEMOGLOBIN A1con 06-22-2024 HbA1c (Bld) [Mass fraction] % High <5.7 [facility] Comment on above: Order Comment: FASTI NG:UNKNOWN FASTING: UNKNOWN Result Comment: For someone without known diabetes, a hemoglobin A1c value of 6.5% or greater indicates that they may have diabetes and this should be confirmed with a follow-up test. For someone with known diabetes, a value <7% indicates that their diabetes is well controlled and a value greater than or equal to 7% indicates suboptimal control. A1c targets should be individualized based on duration of diabetes, age, comorbid conditions, and other considerations. Currently, no consensus exists regarding use of hemoglobin A1c for diagnosis of diabetes for children. Performed By: #### 4 [id number] #### Related Content Database (RCDb) [facility] [address] , [address] [place] [address] Auricular Therapist: Anson Henley MD HbA1c (Bld) [Mass fraction]o n 06-22-2024 Interpretation and review of laboratory results Abnormal [facility] FASTING:UNKNOWN FASTING: UNKNOWN [facility] Organization Information Site ID: QPT Name: Related Content Database (RCDb) [facility] Address: [facility] [address], [address] [place] [id number] Director: Anson Henley MD [facility] - Hematology and Cell countson 06-22-2024 HbA1c (Bld) [Mass fraction] [facility][note 3] Comment on above: For someone without known diabetes, a hemoglobin A1c value of 6.5% or greater indicates that they may have diabetes and this should be confirmed with a follow-up test. For someone with known diabetes, a value <7% indicates that their diabetes is well controlled and a value greater than or equal to 7% indicates suboptimal control. A1c targets should be individualized based on duration of diabetes, age, comorbid conditions, and other considerations. Currently, no consensus exists regarding use of hemoglobin A1c for diagnosis of diabetes for children. XR Chest 2 Viewson 4 XR Chest 2 Views Exam Date/Time: 06/21/2024 14:55 EDT Reason for Exam: R05.3, R07.89 Report IMPRESSION: LEFT LOWER LOBE SUBSEGMENTAL ATELECTASIS/PNEUMONIA . CLINICAL INFORMATION: R05.3, R07.89 COMPARISON: 11/11/2023. FINDINGS: [...] in mGy = na DAP = na Normal [facility] Left eye Ophthalmologic jemma tmenton 05-22-2024 [facility] Radiology Study observation (narrative) [facility] Optical coherence tomography study reporton 05-22-2024 [facility] Right Eye Quality was good. Left Eye Quality was good. Scan locations included subfoveal, juxtafoveal, extrafoveal. Progression has been stable. Findings include abnormal foveal contour, cystoid macular edema. Notes Neovascularization of the disc (NVD) OS [facility] Radiology Study observation (narrative) [facility] Left eye Ophthalmologic jemma tmenton 04-23-2024 [facility] Radiology Study observation (narrative) [facility] Optical coherence tomography study reporton 04-15-2024 Right Eye Quality was good. Scan locations included subfoveal, juxtafoveal, extrafoveal. Progression has no prior data. Findings include abnormal foveal contour. Left Eye Quality was good. Scan locations included subfoveal, juxtafoveal, extrafoveal. Progression has no prior data. Findings include abnormal foveal contour, cystoid macular edema. Notes Pdr os Mod bgdr od [facility] Radiology Study observation (narrative) [facility] BMPon 03-11-2024 Anion gap [Moles/Vol] 13 mmol/L Normal 6-16 [facility] Comment on above: Performed By: #### 2 [id number] #### [facility] [address] [place] [address] Calcium [Mass/Vol] 8.6 mg/dL Low 8.9-11.1 [facility] Comment on above: Performed By: #### 2 [id number] #### [facility] [address] [place] [address] Chloride [Moles/Vol] 100 mmol/L Low 101-111 [facility] Comment on above: Performed By: #### 2 [id number] #### [facility] [address] [place] [address] CO2 [Moles/Vol] 26 mmol/L Normal 21-31 [facility] Comment on above: Performed By: #### 2 [id number] #### [facility] [address] [place] [address] Creatinine [Mass/Vol] 1.5 mg/dL High 0.5-1.3 [facility] Comment on above: Performed By: #### 2 [id number] #### [facility] [address] [place] [address] Glucose [Mass/Vol] 330 mg/dL High 55-199 [facility] Comment on above: Performed By: #### 2 [id number] #### [facility] [address] [place] [address] Potassium [Moles/Vol] 4.8 mmol/L Normal 3.5-5.3 [facility] Comment on above: Performed By: #### 2 [id number] #### [facility] [address] [place] [address] Sodium [Moles/Vol] 134 mmol/L Low 135-145 [facility] Comment on above: Performed By: #### 2 [id number] #### [facility] [address] [place] [address] Urea nitrogen [Mass/Vol] 29 mg/dL High 5-21 [facility] Comment on above: Performed By: #### 2 [id number] #### [facility] [address] [place] [address] Urea nitrogen/Creatinine [Mass ratio] 19 No Units Normal 10-20 [facility] Comment on above: Performed By: #### 2 [id number] #### [facility] [address] [place] [address] CHEMISTRYOrdered By: SYSTEM SYSTEM on 03-11-2024 Anion gap [Moles/Vol] 13 mmol/L Normal 6 - 16 mEq/L Remisol Chem Calcium [Mass/Vol] 8.6 mg/dL Low 8.9 - 11.1 mg/dL Remisol Chem Chloride [Moles/Vol] 100 mmol/L Low 101 - 111 mmol/ L Remisol Chem CO2 [Moles/Vol] 26 mmol/L Normal 21 - 31 mmol/L Remis ol Chem Creatinine [Mass/Vol] 1.5 mg/dL High 0.5 - 1.3 mg/dL Remisol Chem eGFR 51 mL/min/1.73 m2 Low >=59mL/min /1.73 m2 Remisol Chem Glucose [Mass/Vol] 330 mg/dL High 55 - 199 mg/dL Re misol Chem Potassium [Moles/Vol] 4.8 mmol/L Normal 3.5 - 5.3 mmol/L Remisol Chem Sodium [Moles/Vol] 134 mmol/L Low 135 - 145 mmol/L Remisol Chem Urea nitrogen [Mass/Vol] 29 mg/dL High 5 - 21 mg/dL Remisol Chem Urea nitrogen/Creatinine [Mass ratio] 19 mg/mg Normal 10 - 20 Remisol Chem eGFRon 03-11-2024 eGFR 51 mL/min/1.73 m2 Low >=59 [facility] Comment on above: Order Comment: Order added by Discern Expert. Performed By: #### 1 [id number] #### [facility] [address] [place] [address] Ambulatory Visit Summaryon 0 02-28-2024 Ambulatory Visit Summary Normal [facility] Patient Educationon 02-28-20 Patient Education Normal [facility] Urology Office/Clinic Noteon 02-28-2024 Urology Office/Clinic Note Normal [facility] Comment on above: Result Comment: Elec tronically Signed By: Taz THOMAS MD\.br\Date and Time Signed: 02/28/24 08:10 EDT\.br\Electronically Co-Signed By: Basia Claire.br\Date and Time Co-Signed: 02/28/24 08:05 EDT Ambulatory Visit Summaryon 0 02-15-2024 Ambulatory Visit Summary Normal [facility] Patient Educationon 02-11-20 Patient Education Normal [facility] Urology Office/Clinic Noteon 02-11-2024 Urology Office/Clinic Note Normal [facility] Comment on above: Result Comment: Elec tronically Signed By: BRYAN Bahena APRN, [facility]\.br\Date and Time Signed: 02/11/24 23:10 EDT Ambulatory Visit Summaryon 0 02-09-2024 Ambulatory Visit Summary Normal [address], [address] [place] [address]- \.br\ Monday 10:45 AM EDT \.br\ With: Sukh Harrington DPM\.br\ Where: [facility]\.br\ Medications\.br\ What How Much When Why Instructions\.br\ Unchanged acetaminophen-hyd rocodone ([place] 325 mg-5 mg oral tablet) See instructions Take 1 hour prior to your procedure \.br\ Unchanged acetaminophen-tra madol (Ultracet 325 mg-37.5 mg Tab) See instructions take 1-2 every 6 hrs prn for pain - following procedure \.br\ Unchanged albuterol (Albuterol (Eqv-ProAir HFA) 90 mcg/ inh inhalation aerosol) 2 Puffs Inhalation Every 6 hours as needed for Wheezing\.br\ Unchanged albuterol (albuterol 0.083% Inh Harriet 3 mL) 3 Milliliter Inhalation Every 4 hours as needed for Shortness of breath or wheezing\.br\ Unchanged albuterol (Ventolin HFA 90 mcg/ inh Aerosol) 2 Puffs Inhalation Every 4 hours as needed for Shortness of breath or wheezing\.br\ Unchanged atorvastatin (atorvastatin 40 mg Tab) 1 Tablets By Mouth Once a day (in the morning)\.br\ Unchanged budesonide-formot ingrid (Symbicort 160/ 4.5 inhalation aerosol with adapter) 2 Puffs Inhalation 2 times a day Asthma\.br\ Unchanged diazepam (Valium 10 mg Tab) See instructions Take 1 hr prior to procedure \.br\ Unchanged doxycycline (doxycycline hyclate 100 mg Tab) See instructions Take 1 tab the day before your procedure and 1 tab the day of procedure - afterwards \.br\ Unchanged doxycycline (doxycycline hyclate 100 mg Tab) See instructions Start taking 3 days prior to procedure - twice a day x7 days \.br\ Unchanged duloxetine (duloxetine 60 mg oral delayed release capsule) 1 Capsules By Mouth Every day\.br\ Unchanged furosemide (Lasix 20 mg Tab) 1 Tablets By Mouth Once a day (in the evening)\.br\ Unchanged furosemide (Lasix 40 mg Tab) 1 Tablets By Mouth Every day\.br\ Unchanged gabapentin (gabapentin 600 mg Tab) 1 Tablets By Mouth 3 times a day Diabetes mellitus with neuropathy 30 Day Supply \.br\ Unchanged insulin aspart (NovoLOG FlexPen 100 units/ mL injectable solution) See instructions <150 35 units, 150 - 200 40 units, 201-250 45 units, 50 units >250 tidac. Max 150 units a day \.br\ Unchanged insulin glargine (Toujeo Max SoloStar 300 units/ mL subcutaneous solution) 40 Units Subcutaneous 2 times a day\.br\ Unchanged insulin glargine (Toujeo SoloStar) 50 Units Subcutaneous At bedtime\.br\ Unchanged linagliptin-metFO RMIN (Jentadueto 2.5 mg-1000 mg oral tablet) 1 Tablets By Mouth 2 times a day\.br\ Unchanged Misc Prescription (Freestyle Sage 2 [place]) See instructions Use daily with sensor \.br\ Unchanged Misc Prescription (Freestyle Sage 2 Sensors) See instructions Apply one q 14 days \.br\ Unchanged Misc Prescription (Glucometer test strips) See instructions Test TID DX E11.40 on insulin \.br\ Unchanged Misc Prescription (Glucometer) See instructions Diabetes mellitus with neuropathy Dispense 1 Glucometer \.br\ Unchanged Misc Prescription (Insulin Pen [place] 31g x 8 mm) See instructions Use up to 4 daily \.br\ Unchanged Misc Prescription (lancets) See instructions test blood sugar tid dx E11.9 on insulin \.br\ Unchanged oxybutynin (oxybutynin 5 mg Tab) See instructions 1 tab(s) Oral bid after procedure \.br\ Unchanged pantoprazole (Protonix 40 mg Tab-DR) 1 Tablets By Mouth Every day Chronic GERD\.br\ Unchanged ropinirole (ropinirole 1 mg Tab) 1 Tablets By Mouth Once a day (in the evening)\.br\ Unchanged tizanidine (Zanaflex 2 mg oral capsule) 1 Capsules By Mouth Every 8 hours as needed for Muscle pain\.br\ Allergies\.br\ penicillins (Rash)\.br\ Problems\.br\ Ongoing - Any problem that you are currently receiving treatment for.\.br\ Acquired absence of other right toe(s)\.br\ Acute hypoxemic respiratory failure\.br\ Acute on chronic respiratory failure with hypercapnia\.br\ AMY (acute kidney injury)\.br\ Asthma\.br\ Asthma\.br\ At risk for falls\.br\ BPH with urinary obstruction\.br\ Chronic cough\.br\ Chronic GERD\.br\ Chronic hypoxemic respiratory failure\.br\ Chronic kidney disease, stage 3b\.br\ CKD (chronic kidney disease)\.br\ Colonoscopy refused\.br\ Cramps of lower extremity\.br\ Diabetes mellitus with neuropathy\.br\ Elevated brain natriuretic peptide (BNP) level\.br\ GERD (gastroesophageal reflux disease)\.br\ GERD - Gastro-esophageal reflux disease\.br\ Hyperlipidemia\.b r\ Hypertension\.br\ Long-term insulin use\.br\ Low back pain\.br\ 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 mellitus\.br\ Morbid obesity\.br\ Onychomycosis\.br \ TC (obstructive sleep apnea)\.br\ PVD (pulmonary valve disease)\.br\ Renal cyst\.br\ Respiratory acidosis\.br\ Restless leg syndrome\.br\ T2DM (type 2 diabetes mellitus)\.br\ Type 2 diabetes mellitus\.br\ Type 2 diabetes mellitus with hyperglycemia\.br \ Type 2 diabetes mellitus with hyperlipidemia\.b r\ Type 2 diabetes mellitus with morbid obesity\.br\ Type 2 diabetes mellitus with stage 3 chronic kidney disease\.br\ Urinary retention\.br\ Varicose veins of lower extremity\.br\ Historical - Any problem that you are no longer receiving treatment for.\.br\ Major depressive disorder, severe\.br\ MRSA\.br\ Patient Survey\.br\ You may receive a survey via text or e-mail asking about your office visit. Please share your experience with us by completing your survey. We appreciate your feedback and thank you for choosing us for your care.\.br\ \.br\ [facility] Consent for Procedure/Surger yon 02-05-2024 Consent for Procedure/Surgery [id number]#1 .00TIFF Normal [facility] Consent for Treatmenton 01-19 Consent for Treatment [id number]#1 .00TIFF Normal [facility] Inpatient Patient Summaryon 02-05-2024 Inpatient Patient Summary Normal [facility] IntraOperative Documentson 0 02-05-2024 IntraOperative Documents [id number]#1 .00TIFF [facility] Main OR Intraoperative Recor don 02-05-2024 Main OR Intraoperative Record Normal [facility] Main OR Preoperative Recordo n 02-05-2024 Main OR Preoperative Record Normal [facility] Operative Reporton Operative Report Normal [facility] Comment on above: Result Comment: Elec tronically Signed By: MARTHA LYMAN, Taz Nunez.br\Date and Time Signed: 02/05/24 13:27 EDT Outpatient Surgery Discharge Instructionon 02-05-2024 Outpatient Surgery Discharge Instruction [id number]#1 .00TIFF [facility] Outpatient Surgery Discharge Instruction [facility] Patient Educationon 02-05-20 Patient Education Normal [facility] Insurance Correspondenceon 0 02-01-2024 Insurance Correspondence [id number]# 1.00TIFF [facility] Multi-Wound Charton 02-01-20 Multi-Wound Chart [id number]# 1.00TIFF [facility] Nursing Note - Woundon 01-31 Nursing Note - Wound 159.140.124. [id number]# 1.00TIFF [facility] Consent for Treatmenton 01-19 Consent for Treatment [id number]#1 .00TIFF [facility] Nursing Assessment - Woundon 01-31-2024 Nursing Assessment - Wound [id number]# 1.00TIFF [facility] Physician Orderon 01-31-2024 Physician Order [id number]# 1.00TIFF [facility] Prescriptions/Work Noteson 0 01-31-2024 Prescriptions/Work Notes [id number]# 1.00TIFF [facility] Procedure - Woundon 01-31-20 Procedure - Wound [id number] 6 [id number]# 1.00TIFF [facility] Progress Note - Woundon 01-19 Progress Note - Wound [id number]# 1.00TIFF [facility] Insurance Correspondenceon 0 01-26-2024 Insurance Correspondence [id number]#1 .00TIFF [facility] Nursing Note - Woundon 01-23 Nursing Note - Wound 159.140.124. 06 [id number]# 1.00TIFF [facility] Physician Orderon 01-24-2024 Physician Order [id number]# 1.00TIFF [facility] Procedure - Woundon 01-24-20 Procedure - Wound [id number] 6 [id number]# 1.00TIFF [facility] Progress Note - Woundon Progress Note - Wound [id number]# 1.00TIFF [facility] Consent for Procedure/Surger yon 01-23-2024 Consent for Procedure/Surgery [id number]# 1.00TIFF [facility] Consent for Procedure/Surgery [id number]# 1.00TIFF [facility] Consent for Treatmenton Consent for Treatment [id number]#1 .00TIFF [facility] Multi-Wound Charton 01-23-20 Multi-Wound Chart [id number] 6 [id number]# 1.00TIFF [facility] Nursing Assessment - Woundon 01-23-2024 Nursing Assessment - Wound [id number]# 1.00TIFF [facility] ED Note-Physicianon 01-16-20 ED Note-Physician [facility] Comment on above: Result Comment: Elec tronically Signed By: Kaley Phan PA-C\.br\Date and Time Signed: 01/15/24 17:05 EDT\.br\Electronically Co-Signed By: Nicole Myers DO\.br\Date and Time Co-Signed: 01/16/24 09:03 EDT Consent for Treatmenton 12-20 Consent for Treatment [id number]#1 .00TIFF [facility] Discharge Instructionson Discharge Instructions [id number]#1 .00TIFF [facility] ED Clinical Summaryon 2023 ED Clinical Summary Normal [facility] ED Patient Education Noteon 01-15-2024 ED Patient Education Note [facility] ED Patient Summaryon 024 ED Patient Summary [facility] Ambulatory Visit Summaryon 0 01-12-2024 Ambulatory Visit Summary [facility] Consent for Procedure/Surger yon 01-02-2024 Consent for Procedure/Surgery [id number]# 1.00TIFF [facility] Consent for Treatmenton 12-19 Consent for Treatment [id number]#1 .00TIFF [facility] Multi-Wound Charton 01-02-20 Multi-Wound Chart [id number] 5 [id number]# 1.00TIFF [facility] Nursing Assessment - Woundon 01-02-2024 Nursing Assessment - Wound 159.140.124. [id number]# 1.00TIFF [facility] Nursing Note - Woundon 01-01 Nursing Note - Wound 159.140.124. 05 [id number]# 1.00TIFF [facility] Physician Orderon 01-02-2024 Physician Order [id number] 5 [id number]# 1.00TIFF [facility] Procedure - Woundon 01-02-20 Procedure - Wound 159.140.124. 5 [id number]# 1.00TIFF [facility] Progress Note - Woundon 12-19 Progress Note - Wound 159.140.124. [id number]# 1.00TIFF [facility] Consent for Procedure/Surger yon 12-26-2023 Consent for Procedure/Surgery [id number]#1 .00TIFF [facility] Consent for Procedure/Surgery [id number]#1 .00TIFF [facility] Consent for Treatmenton Consent for Treatment [id number]#1 .00TIFF [facility] Multi-Wound Charton 12-26-19 Multi-Wound Chart [id number] 5 [id number]# 1.00TIFF [facility] Nursing Assessment - Woundon 12-26-2023 Nursing Assessment - Wound 159.140.124.25. [id number]# 1.00TIFF [facility] Nursing Note - Woundon 12-25 Nursing Note - Wound 159.140.124. 05 [id number]# 1.00TIFF [facility] Physician Orderon 12-26-2023 Physician Order [id number]. 5 [id number]# 1.00TIFF [facility] Procedure - Woundon 12-26-19 24 Procedure - Wound 159.140.124. 5 [id number]# 1.00TIFF [facility] Progress Note - Woundon Progress Note - Wound 159.140.124.. [id number]# 1.00TIFF [facility] Nursing Note - Woundon 12-19 Nursing Note - Wound 159.140.124. 05 [id number]# 1.00TIFF [facility] Physician Orderon 12-20-2023 Physician Order [id number]. 5 [id number]# 1.00TIFF [facility] Procedure - Woundon 12-20-19 Procedure - Wound 159.140.124. 5 [id number]# 1.00TIFF [facility] Progress Note - Woundon Progress Note - Wound 159.140.124.. [id number]# 1.00TIFF [facility] Consent for Procedure/Surger yon 12-19-2023 Consent for Procedure/Surgery [id number]# 1.00TIFF [facility] Consent for Treatmenton 11-21 Consent for Treatment [id number]#1 .00TIFF [facility] Multi-Wound Charton 12-19-19 Multi-Wound Chart [id number] 4 [id number]# 1.00TIFF [facility] Nursing Assessment - Woundon 12-19-2023 Nursing Assessment - Wound 159.140.124.25. [id number]# 1.00TIFF [facility] Ambulatory Visit Summaryon 0 4-26-2024 Ambulatory Visit Summary [facility] Consent for Procedure/Surger yon 12-12-2023 Consent for Procedure/Surgery [id number]# 1.00TIFF [facility] Consent for Treatmenton 11-20 Consent for Treatment [id number]#1 .00TIFF [facility] Multi-Wound Charton 12-12-19 Multi-Wound Chart [id number] 4 [id number]# 1.00TIFF [facility] Nursing Assessment - Woundon 12-12-2023 Nursing Assessment - Wound [id number]# 1.00TIFF [facility] Nursing Note - Woundon 12-11 Nursing Note - Wound [id number] 04 [id number]# 1.00TIFF [facility] Physician Orderon 12-12-2023 Physician Order [id number] 4 [id number]# 1.00TIFF [facility] Procedure - Woundon 12-12-19 Procedure - Wound [id number] 4 [id number]# 1.00TIFF [facility] Progress Note - Woundon 11-20 Progress Note - Wound [id number]# 1.00TIFF [facility] Consenton 11-22-2023 Consent [id number] 0 [id number]#1. 00TIFF [facility] Consent for Procedure/Surger yon 11-20-2023 Consent for Procedure/Surgery [id number]#1 .00TIFF [facility] Consent for Treatmenton Consent for Treatment [id number]#1 .00TIFF Normal [facility] IntraOperative Documentson 0 11-20-2023 IntraOperative Documents [id number]#1 .00TIFF Normal [facility] IntraOperative Documents [id number]#1 .00TIFF Normal [facility] Main OR Intraoperative Recor don 11-20-2023 Main OR Intraoperative Record Normal [facility] Main OR Preoperative Recordo n 11-20-2023 Main OR Preoperative Record Normal [facility] Operative Reporton Operative Report Normal [facility] Comment on above: Result Comment: Elec tronically Signed By: Taz THOMAS MD\.br\Date and Time Signed: 11/20/23 13:26 EDT Progress Note-Physicianon Progress Note-Physician Normal [facility] Comment on above: Result Comment: Elec tronically Signed By: Taz THOMAS MD\.br\Date and Time Signed: 11/20/23 13:30 EDT C Blood Charcoalon Blood Culture Charcoal Normal [facility] Comment on above: Performed By: #### 1 [id number] ####[facility] [address] [place] [address] Blood Culture Charcoal Normal [facility] Comment on above: Performed By: #### 1 [id number] ####[facility] [address] [place] [address] 22400 Basophils Auto (Bld) [#/Vol] Ordered By: Manish Fu on 11-17-2023 Basophils (Bld) [#/Vol] 0.0 10*3/uL 0.0-0.2 [facility] Basophils/100 WBC Auto (Bld) Ordered By: Manish Fu on 11-17-2023 Basophils/100 WBC (Bld) 0.7 % . [facility] Calcium [Mass/volume] in Ser um or PlasmaOrdered By: Manish Fu on 11-17-2023 Calcium [Mass/Vol] 9.3 mg/dL 8.6-10.3 [facility] Carbon dioxide, total [Moles /volume] in Serum or PlasmaOrdered By: Manish Fu on 11-17-2023 CO2 [Moles/Vol] 41.4 mmol/L 21.0-31.0 [facility] Chloride [Moles/volume] in S raymond or PlasmaOrdered By: Manish Fu on 11-17-2023 Chloride [Moles/Vol] 102 mmol/L 98-107 [facility] Creatinine [Mass/volume] in Serum or PlasmaOrdered By: Manish Fu on 11-17-2023 Creatinine [Mass/Vol] 1.47 mg/dL 0.70-1.30 [facility] Eosinophils Auto (Bld) [#/Vo l]Ordered By: Manish Fu on 11-17-2023 Eosinophils (Bld) [#/Vol] 0.3 10*3/uL 0.0-0.45 [facility] Eosinophils/100 WBC Auto (Bl d)Ordered By: Manish Fu on 11-17-2023 Eosinophils/100 WBC (Bld) 5.6 % . [facility] Erythrocyte distribution wid th Auto (RBC) [Ratio]Ordered By: Manish Fu on 11-17-2023 Erythrocyte distribution width (RBC) [Ratio] 18.4 % 12.0-14.8 [facility] Glucose Glucometer (BldC) [M ass/Vol]Ordered By: Manish Fu on 11-17-2023 Glucose [Mass/Vol] 165 mg/dL [facility] Comment on above: Random Glucose Refer ence Range is dependent on time and content of last meal. Glucose of more than 200 mg/dL in a nonstressed, ambulatory subject supports the diagnosis of Diabetes Mellitus. Glucose [Mass/volume] in Ser um or PlasmaOrdered By: Manish Fu on 11-17-2023 Glucose [Mass/Vol] 114 mg/dL 70-100 [facility] Comment on above: ADA recommended refe rence rangeRandom Glucose Reference Range is dependent on time and content of last meal. Glucose of more than 200 mg/dL in a nonstressed, ambulatory subject supports the diagnosis of Diabetes Mellitus. Hematocrit Auto (Bld) [Volum e fraction]Ordered By: Manish Fu on 11-17-2023 Hematocrit (Bld) [Volume fraction] 39.5 % 38.8-50.0 [facility] Hemoglobin [Mass/volume] in BloodOrdered By: Manish Fu on 11-17-2023 Hemoglobin (Bld) [Mass/Vol] 12.3 g/dL 13.0-17.0 [facility] Leukocytes [#/volume] correc maria guadalupe for nucleated erythrocytes in Blood by Automated counOrdered By: Manish Fu on 11-17-2023 WBC corrected for nucl RBC Auto (Bld) [#/Vol] 6.0 10*3/uL 4.1-10.5 [facility] Lymphocytes Auto (Bld) [#/Vo l]Ordered By: Manish Fu on 11-17-2023 Lymphocytes (Bld) [#/Vol] 1.3 10*3/uL 1.00-4.8 [facility] Lymphocytes/100 WBC Auto (Bl d)Ordered By: Manish Fu on 11-17-2023 Lymphocytes/100 WBC (Bld) 21.7 % . [facility] MCH Auto (RBC) [Entitic mass ]Ordered By: Manish Fu on 11-17-2023 MCH (RBC) [Entitic mass] 26.0 pg 27.5-35.2 [facility] MCHC Auto (RBC) [Mass/Vol]Or dered By: Manish Fu on 11-17-2023 MCHC (RBC) [Mass/Vol] 31.2 g/dL 32.5-35.6 [facility] MCV Auto (RBC) [Entitic vol] Ordered By: Manish Fu on 11-17-2023 MCV (RBC) [Entitic vol] 83.4 fL 83.5-101 [facility] Monocytes Auto (Bld) [#/Vol] Ordered By: Manish Fu on 11-17-2023 Monocytes (Bld) [#/Vol] 0.6 10*3/uL 0.0-0.8 [facility] Monocytes/100 WBC Auto (Bld) Ordered By: Manish Fu on 11-17-2023 Monocytes/100 WBC (Bld) 10.4 % . [facility] Neutrophils Auto (Bld) [#/Vo l]Ordered By: Manish Fu on 11-17-2023 Neutrophils (Bld) [#/Vol] 3.7 10*3/uL 1.8-7.7 [facility] Neutrophils/100 WBC Auto (Bl d)Ordered By: Manish Fu on 11-17-2023 Neutrophils/100 WBC (Bld) 61.6 % . [facility] No Panel InformationOrdered By: Manish Fu on 11-17-2023 Estimated GFR (CKD-EPI) 52.934 mL/Min [facility] Creatinine Clearance (Chem 70.70 [facility] Nucleated erythrocytes [Pres ence] in Blood by Automated countOrdered By: Manish Fu on 11-17-2023 Nucleated RBC Auto Ql (Bld) 0.1 /100{WBC} 0-0.5 [facility] Platelet mean volume Auto (B ld) [Entitic vol]Ordered By: Manish Fu on 11-17-2023 Platelet mean volume (Bld) [Entitic vol] 6.8 fL 6.6-10.1 [facility] Platelets Auto (Bld) [#/Vol] Ordered By: Manish Fu on 11-17-2023 Platelets (Bld) [#/Vol] 248 10*3/uL 150-450 [facility] Potassium [Moles/volume] in Serum or PlasmaOrdered By: Manish Fu on 11-17-2023 Potassium [Moles/Vol] 4.5 mmol/L 3.5-5.1 [facility] RBC Auto (Bld) [#/Vol]Ordere d By: Manish Fu on 11-17-2023 RBC (Bld) [#/Vol] 4.73 10*6/uL 3.90-5.60 [facility] Serum or plasma anion gap de terminationOrdered By: Manish Fu on 11-17-2023 Anion gap [Moles/Vol] 10.1 mmol/L 6.0-15.0 [facility] Sodium [Moles/volume] in Ser um or PlasmaOrdered By: Manish Fu on 11-17-2023 Sodium [Moles/Vol] 149 mmol/L 136-145 [facility] Urea nitrogen [Mass/volume] in Serum or PlasmaOrdered By: Manish Fu on 11-17-2023 Urea nitrogen [Mass/Vol] 44 mg/dL 7-25 [facility] WBC Auto (Bld) [#/Vol]Ordere d By: Manish Fu on 11-17-2023 WBC (Bld) [#/Vol] 6.0 10*3/uL 4.1-10.5 [facility] Admission Noteon 11-16-2023 Admission Note [id number]#1 .00TIFF Normal [facility] No Panel InformationOrdered By: Manish Fu on 11-16-2023 Bedside Glucose Comment Glu2: cleaned meter [facility] Admission Noteon 11-15-2023 Admission Note [id number]#1 .00TIFF Normal [facility] Laboratory - Chemistry and C hemistry - challengeOrdered By: Manish Fu on 11-15-2023 CO2 [Moles/Vol] 34.8 mmol/L 23.0-27.0 [facility] HCO3 (Bld) [Moles/Vol] 32.6 mmol/L 23.0-29.0 [facility] Magnesium [Mass/volume] in S raymond or PlasmaOrdered By: Manish Fu on 11-15-2023 Magnesium [Mass/Vol] 2.3 mg/dL 1.9-2.7 [facility] No Panel InformationOrdered By: Manish Fu on 11-15-2023 Arterial Blood Base Excess 3.8 mmol/L -3.0-3.0 [facility] Arterial Blood Oxygen Content 8.0 mmol/L 6.6-9.7 [facility] Arterial Blood Oxygen Saturation 94.1 % 95.0-100.0 [facility] Arterial Blood Partial Pressure CO2 70.1 mm[Hg] 35.0-45.0 [facility] Arterial Blood Partial Pressure O2 73.0 mm[Hg] 80.0-100.0 [facility] Arterial Blood pH 7.29 7.35-7.45 [facility] Blood Gas Critical Value See comment [facility] Comment on above: Critical Value dickerson d on: 11/15/2023 at 12:53 Blood Gas Sample Site Right radial [facility] FiO2 44 % [facility] Oxygen Delivery Device Nasal cannula [facility] Alanine aminotransferase [En zymatic activity/volume] in Serum or PlasmaOrdered By: Manish Fu on 11-14-2023 ALT [Catalytic activity/Vol] 14 U/L 7-52 [facility] Albumin [Mass/volume] in Ser um or Plasma by Bromocresol green (BCG) dye binding methoOrdered By: Manish Fu on 11-14-2023 Albumin BCG dye [Mass/Vol] 3.2 g/dL 3.5-5.7 [facility] Alkaline phosphatase [Enzyma tic activity/volume] in Serum or PlasmaOrdered By: Manish Fu on 11-14-2023 ALP [Catalytic activity/Vol] 92 U/L 34-104 [facility] Aspartate aminotransferase [ Enzymatic activity/volume] in Serum or PlasmaOrdered By: Manish Fu on 11-14-2023 AST [Catalytic activity/Vol] 10 U/L 13-39 [facility] Bilirubin.total [Mass/volume ] in Serum or PlasmaOrdered By: Manish Fu on 11-14-2023 Bilirubin [Mass/Vol] 0.6 mg/dL 0.3-1.0 [facility] Globulin Calc (S) [Mass/Vol] Ordered By: Manish Fu on 11-14-2023 Globulin (S) [Mass/Vol] 2.8 g/dL [facility] Protein [Mass/volume] in Ser um or PlasmaOrdered By: Manish Fu on 11-14-2023 Protein [Mass/Vol] 6.0 g/dL 6.4-8.9 [facility] Serum or plasma albumin/glob ulin mass ratioOrdered By: Manish Fu on 11-14-2023 Albumin/Globulin [Mass ratio] 1.1 {ratio} [facility] C Urineon 11-13-2023 Bacteria identified Cx Nom (U) Normal [facility] Comment on above: Performed By: #### 2 [id number], [id number] ####[facility] [address] [place] [address] Automated erythrocytes count in urine sediment (number/area)Ordered By: Tera Nevarez on 11-11-2023 RBC Auto (Urine sed) [#/Area] Innumerable [HPF] 0-4 [facility] Automated leukocytes count i n urine sediment (number/area)Ordered By: Tera Nevarez on 11-11-2023 WBC Auto (Urine sed) [#/Area] 50-100 [HPF] 0-4 [facility] Automated urine hyaline cast s count (number/volume)Ordered By: Tera Nevarez on 11-11-2023 Hyaline casts Auto (U) [#/Vol] 0-8 [LPF] 0-1 [facility] BMPon 11-11-2023 Anion gap [Moles/Vol] 18 mmol/L High 6-16 [facility] Comment on above: Performed By: #### 2 [id number], 3046317, 51172188, 98894096, 21399860, 89066716, 7115436 ####[facility] [address] [place] [address] Calcium [Mass/Vol] 8.8 mg/dL Low 8.9-11.1 [facility] Comment on above: Performed By: #### 2 641402, 6632509, 22311569, 92857673, 11666494, 16226644, 2879869 ####[facility] [address] [place] [address] Chloride [Moles/Vol] 95 mmol/L Low 101-111 [facility] Comment on above: Performed By: #### 2 601771, 1146082, 21042779, 26804755, 12679185, 53473024, 0801527 ####[facility] [address] [place] [address] CO2 [Moles/Vol] 24 mmol/L Normal 21-31 [facility] Comment on above: Performed By: #### 2 381881, 7944382, 82209752, 72261043, 41687017, 67401157, 5520398 ####[facility] [address] [place] [address] Creatinine [Mass/Vol] 4.9 mg/dL High 0.5-1.3 [facility] Comment on above: Performed By: #### 2 694055, 1329138, 13158688, 04972576, 04852279, 54132988, 6017206 ####[facility] [address] [place] [address] Glucose [Mass/Vol] 311 mg/dL High 55-199 [facility] Comment on above: Performed By: #### 2 979895, 8830489, 52107240, 49371659, 30150015, 95120542, 2462347 ####[facility] [address] [place] [address] Potassium [Moles/Vol] 5.3 mmol/L Normal 3.5-5.3 [facility] Comment on above: Performed By: #### 2 396313, 8050651, 56177341, 59017556, 98862344, 68455479, 2829524 ####[facility] [address] [place] [address] Sodium [Moles/Vol] 132 mmol/L Low 135-145 [facility] Comment on above: Performed By: #### 2 765385, 8716125, 36686301, 87680751, 71727820, 94683385, 2978176 ####[facility] [address] [place] [address] Urea nitrogen [Mass/Vol] 76 mg/dL High 5-21 [facility] Comment on above: Performed By: #### 2 502583, 9782430, 01558592, 98838681, 74625710, 17388393, 0836628 ####[facility] [address] [place] [address] Urea nitrogen/Creatinine [Mass ratio] 16 No Units Normal 10-20 [facility] Comment on above: Performed By: #### 2 777151, 4671005, 36758628, 79045900, 79102344, 34769105, 4201410 ####[facility] [address] [place] [address] BNPon 11-11-2023 Natriuretic peptide B (Bld) [Mass/Vol] 99 pg/mL High 5-80 [facility] Comment on above: Performed By: #### 2 827289, 0725476, 78808282, 72965933, 75667937, 84432787, 3460269 ####[facility] [address] [place] [address] Bilirubin Test strip Ql (U)O rdered By: Tera Nevarez on 11-11-2023 Bilirubin Ql (U) Negative Negative [facility] Blood Gas Art, with Lytes, G hugh, [place] 11-11-2023 a/A Ratio Art 26.50 % Normal >=0.80 [facility] Comment on above: Performed By: #### 4 [id number] ####[facility] [address] [place] [address] AaDO2 Art 157.8 mmHg High 5.0-15.0 [facility] Comment on above: Performed By: #### 4 [id number] ####[facility] [address] [place] [address] Allens Test Positive Normal [facility] Comment on above: Performed By: #### 4 [id number] ####[facility] [address] [place] [address] Base Excess Arterial -2.4 mmol/L Low >=2.8 [facility] Comment on above: Performed By: #### 4 [id number] ####[facility] [address] [place] [address] cCa2+ Art 4.70 mg/dL Normal 4.40-5.30 [facility] Comment on above: Performed By: #### 4 [id number] ####[address] [place] [address] cCl- Art 97.0 mmol/L Low 101.0-111.0 [facility] Comment on above: Performed By: #### 4 [id number] ####[address] [place] [address] cGlu Art 311 mg/dL High 55-99 [facility] Comment on above: Performed By: #### 4 [id number] ####[address] [place] [address] cK+ Art 5.5 mmol/L High 3.5-5.3 [facility] Comment on above: Performed By: #### 4 [id number] ####[address] [place] [address] cLac Art 1.0 mmol/L Normal .5-2.2 [facility] Comment on above: Performed By: #### 4 [id number] ####[address] [place] [address] smudger+ Art 135.0 mmol/L Normal 135.0-145.0 [facility] Comment on above: Performed By: #### 4 [id number] ####[address] [place] [address] Device Cannula Normal [facility] Comment on above: Performed By: #### 4 [id number] ####[address] [address] Drawn by korina schneite Invalid Interpretation Code [facility] Comment on above: Performed By: #### 4 [id number] ####[address] [place] [address] FCOHb Art 1.9 % Normal 1.5-4.9 [facility] Comment on above: Result Comment: Refe rence rangeNonsmoker <1.5%Smoker <5.0%Heavy Smoker <9.0% Performed By: #### 4 [id number] ####[address] [place] [address] FIO2 BG 40 Invalid Interpretation Code [facility] Comment on above: Performed By: #### 4 [id number] ####[address] [address] FMetHb Art 0.1 % Normal 0.0-1.9 [facility] Comment on above: Performed By: #### 4 [id number] ####[address] [address] FO2Hb Art 86.9 % Low 93.0-100.0 [facility] Comment on above: Performed By: #### 4 [id number] ####[address] [address] HCO3 (Bld) [Moles/Vol] 22.2 mmol/L Normal 22.0-26.0 [facility] Comment on above: Performed By: #### 4 [id number] ####[address] [address] Hemoglobin (Bld) [Mass/Vol] 12.8 g/dL Normal 12.0-17.0 [facility] Comment on above: Performed By: #### 4 [id number] ####[address] [address] Oxygen saturation in Blood 88.7 % Low 95.0-100.0 [facility] Comment on above: Performed By: #### 4 [id number] ####[address] [place] [address] P CO2 Arterial 58.0 mmHg High 35.0-45.0 [facility] Comment on above: Performed By: #### 4 [id number] ####[address] [address] P O2 Arterial 56.8 mmHg Low 80.0-100.0 [facility] Comment on above: Performed By: #### 4 [id number] ####[place] [address] pH Arterial 7.255 Low 7.350-7.450 [facility] Comment on above: Performed By: #### 4 [id number] ####[place] [address] Sample Site R Radial Normal [facility] Comment on above: Performed By: #### 4 [id number] ####[place] [address] Sample Type Arterial Draw Normal [facility] Comment on above: Performed By: #### 4 [id number] ####[id number] CBC w/ Auto Diffon 4 Basophils/100 WBC (Bld) 0.5 % Normal 0.0-2.0 [facility] Comment on above: Performed By: #### 2 046614, 9753585, 80971831, 20923363, 25958909, 10526244, 2976251 ####[address] Basophils/Leukocytes Auto (Bld) [Pure # fraction] 0.0 E9/L Normal 0.0-0.2 [facility] Comment on above: Performed By: #### 2 530045, 8187458, 15616566, 53192718, 34826140, 37330919, 3907062 ####[address] [address] Eosinophils (Bld) [#/Vol] 0.2 E9/L Normal 0.0-0.5 [facility] Comment on above: Performed By: #### 2 095192, 6654727, 80033634, 27091863, 49929318, 22308037, 7043485 ####[facility] [address] [place] [address] Eosinophils/100 WBC (Bld) 1.9 % Normal 0.0-8.0 [facility] Comment on above: Performed By: #### 2 853965, 4613009, 06118861, 73894942, 62863153, 21095211, 3558024 ####[address] [place] [address] Erythrocyte distribution width (RBC) [Ratio] 18.6 % High 10.9-14.2 [facility] Comment on above: Performed By: #### 2 498515, 4611456, 11744482, 49481304, 00796309, 06842137, 4356170 ####[address] [place] [address] Hematocrit (Bld) [Volume fraction] 41.9 % Normal 37.7-49.0 [facility] Comment on above: Performed By: #### 2 201198, 8631168, 70785007, 85037387, 27859324, 65179752, 9405164 ####[address] [place] [address] Hemoglobin (Bld) [Mass/Vol] 12.8 g/dL Low 13.5-17.5 [facility] Comment on above: Performed By: #### 2 523398, 0802860, 36867743, 29664221, 01331090, 38595495, 6708092 ####[address] [place] [address] Lymphocytes (Bld) [#/Vol] 0.8 E9/L Low 1.0-4.0 [facility] Comment on above: Performed By: #### 2 046637, 8046739, 98230561, 29373793, 37490307, 19694586, 7717458 ####[address] [place] [address] Lymphocytes/100 WBC (Bld) 9.1 % Low 14.0-50.0 [facility] Comment on above: Performed By: #### 2 561270, 3012541, 82513470, 16274427, 27173385, 91689124, 0242612 ####[address] [address] MCH (RBC) [Entitic mass] 26.4 pg Low 27.0-34.0 [facility] Comment on above: Performed By: #### 2 133604, 1174774, 32123612, 88888014, 78499399, 86898278, 2977186 ####[address] [address] MCHC (RBC) [Mass/Vol] 30.6 g/dL Low 31.4-36.0 [facility] Comment on above: Performed By: #### 2 401500, 4447982, 77527631, 72571616, 54615386, 40485622, 6184223 ####[address] [address] MCV (RBC) [Entitic vol] 86.3 fL Normal 80.0-100.0 [facility] Comment on above: Performed By: #### 2 186504, 9639341, 06127292, 96827298, 29347770, 82540801, 9268400 ####[address] [address] Monocytes (Bld) [#/Vol] 0.5 E9/L Normal 0.2-1.0 [facility] Comment on above: Performed By: #### 2 363006, 9381723, 49084145, 71306192, 71843731, 78430650, 5614475 ####[address] [address] Neutrophils (Bld) [#/Vol] 7.0 E9/L Normal 2.0-7.5 [facility] Comment on above: Performed By: #### 2 073010, 4919431, 77904967, 15068631, 31394331, 10859822, 6285545 ####[address] [place] [address] Neutrophils/100 WBC (Bld) 82.2 % High 36.0-75.0 [facility] Comment on above: Performed By: #### 2 826792, 9961341, 59467383, 31834520, 01355016, 40795955, 9036624 ####[address] [address] Platelet 254.0 E9/L Normal 150.0-500.0 [facility] Comment on above: Performed By: #### 2 110708, 7697139, 15096696, 18094500, 52012173, 12012805, 2525907 ####[address] [address] Platelet mean volume (Bld) [Entitic vol] 6.9 fL Normal 6.4-10.8 [facility] Comment on above: Performed By: #### 2 613087, 9634859, 94698955, 31116296, 67729994, 67953743, 2780856 ####[address] [address] RBC (Bld) [#/Vol] 4.9 E12/L Normal 4.3-5.9 [facility] Comment on above: Performed By: #### 2 095321, 8926326, 82643773, 13508176, 68862086, 05453204, 2547819 ####[address] [address] WBC corrected for nucl RBC Auto (Bld) [#/Vol] 8.5 E9/L Normal 4.0-11.0 [facility] Comment on above: Performed By: #### 2 479182, 7302187, 59980204, 57283339, 38205764, 27781425, 1336695 ####[facility] [id number] CHEMISTRYOrdered By: SYSTEM SYSTEM on 11-11-2023 Troponin 12.90 pg/mL Low 15.90 - 38.40 pg/mL [facility] Comment on above: Interpretive Data: T he 95% CI (Confidence Interval) PPV (Positive Predictive Value) for myocardial infarction in females is 38 pg/mL, in males 51 pg/mL. The results should be used in conjunction with clinical conditions of myocardial infarction. (Access High Sensitivity Troponin I Instructions For Use, [employer], March 2018) Troponin 12.60 pg/mL Low 15.90 - 38.40 pg/mL [facility] Comment on above: Interpretive Data: T he 95% CI (Confidence Interval) PPV (Positive Predictive Value) for myocardial infarction in females is 38 pg/mL, in males 51 pg/mL. The results should be used in conjunction with clinical conditions of myocardial infarction. (Access High Sensitivity Troponin I Instructions For Use, [employer], March 2018) Anion gap [Moles/Vol] 18 mmol/L High 6 - 16 mEq/L [facility] Calcium [Mass/Vol] 8.8 mg/dL Low 8.9 - 11.1 mg/dL [facility] Chloride [Moles/Vol] 95 mmol/L Low 101 - 111 mmol/ L [facility] Chem CO2 [Moles/Vol] 24 mmol/L Normal 21 - 31 mmol/L Remis ol Chem Creatinine [Mass/Vol] 4.9 mg/dL High 0.5 - 1.3 mg/dL [facility] eGFR 12 mL/min/1.73 m2 Low >=59mL/min /1.73 m2 [facility] Glucose [Mass/Vol] 311 mg/dL High 55 - 199 mg/dL Re misol Chem Lactic Acid Lvl 1.5 mmol/L Normal 0.5 - 2.2 mmol/L Rem isol Chem Potassium [Moles/Vol] 5.3 mmol/L Normal 3.5 - 5.3 mmol/L [facility] Sodium [Moles/Vol] 132 mmol/L Low 135 - 145 mmol/L [facility] Troponin 12.40 pg/mL Low 15.90 - 38.40 pg/mL [facility] Comment on above: Interpretive Data: T lemuel 95% CI (Confidence Interval) PPV (Positive Predictive Value) for myocardial infarction in females is 38 pg/mL, in males 51 pg/mL. The results should be used in conjunction with clinical conditions of myocardial infarction. (Access High Sensitivity Troponin I Instructions For Use, Opal Caro, March 2018) Urea nitrogen [Mass/Vol] 76 mg/dL High 5 - 21 mg/dL [facility] Urea nitrogen/Creatinine [Mass ratio] 16 mg/mg Normal 10 - 20 [facility] CHEMISTRYOrdered By: Deacon Marcano on 11-11-2023 Natriuretic peptide B (Bld) [Mass/Vol] 99 pg/mL High 5 - 80 pg/mL [facility] COAGULATIONOrdered By: Catina Schmidt on 11-11-2023 aPTT Coag (PPP) [Time] 36.5 s Normal 25.1 - 36.5 second(s) [facility] [place] Auto Coag Comment on above: Interpretive Data: Jarad grant 15 days - 4 weeks 1 - 5 months 6 - 11 months 1 - 5 years 6 - 10 years 11 - 17 years PTT Mean: 35.4 (27.6-45.6) Mean: 33.5 (24.8-40.7) Mean: 32.4 (25.1-40.7) Mean: 31.6 (24.0-39.2) Mean: 31.6 (26.9-38.7) Mean: 31.0 (24.6-38.4) Pediatric Reference ranges were obtained from a study by Isaiah Hallman et al. prepared from 1437 samples obtained at 7 different centers using the same coagulation reagent and instrumentation as [facility]. Currently there are no coagulation studies available worldwide for children to 14 days, and no normal ranges. Heparin therapeutic range (represented by Anti-Factor Xa activity of 0.2 - 0.4 U/mL) corresponds to PTT of 56.6 - 109.0 sec. INR Coag (PPP) [Relative time] 0.94 {INR} Invalid Interpretation Code [facility] [place] [place] [facility] Comment on above: Interpretive Data: I NR results are specifically intended to assess patients stabilized on long-term Anticoagulation therapy suggested INR s Less Intensive Anticoagulation 2.0 3.0 Conventional Range 3.0 4.5 PT Coag (PPP) [Time] 10.5 s Normal 9.4 - 1 2.5 second(s) [facility] [place] [facility] Comment on above: Interpretive Data: 1 5 days - 4 weeks 1 - 5 months 6 -11 months 1-5 years 6-10 years 11 -17 years Mean: 11.2 (9.5-12.6) Mean: 11.0 (9.7-12.8) Mean: 11.0 (9.8-13.0) Mean: 11.3 (9.9-13.4) Mean: 11.7 (10.0-14.6) Mean: 11.8 (10.0 - 14.1) Pediatric Reference ranges were obtained from a study by nancy Dooley al. prepared from 1437 samples obtained at 7 different centers using the same coagulation reagent and instrumentation as [facility] [place]. Currently there are no coagulation studies available worldwide for children to 14 days, and no normal ranges. Casts typing in urine sedime nt by light microscopyOrdered By: Tera Nevarez on 11-11-2023 Casts LM Nom (Urine sed) None seen [LPF] None Seen [facility] Color Auto (U)Ordered By: Neptali Nevarez on 11-11-2023 Color (U) [place] Yellow [facility] Consent for Treatmenton 10-20 Consent for Treatment [id number]#1 .00TIFF Normal [facility] Creatine kinase [Enzymatic a ctivity/volume] in Serum or PlasmaOrdered By: Tera Nevarez on 11-11-2023 CK [Catalytic activity/Vol] 125 U/L 30-223 [facility] Creatinine [Mass/volume] in UrineOrdered By: Tera Nevarez on 11-11-2023 Creatinine (U) [Mass/Vol] 266.0 mg/dL 14.0-26.0 [facility] ED Clinical Summaryon 2023 ED Clinical Summary Normal [facility] ED Note-Physicianon 11-11-19 ED Note-Physician Normal [facility] Comment on above: Result Comment: Elec tronically Signed By: Greyson ENGLE, Paddy J.\.br\Date and Time Signed: 11/11/23 12:42 EDT\.br\Electronically Co-Signed By: Alejandro Silva M.D..br\Date and Time Co-Signed: 11/11/23 19:21 EDT ED Patient Education Noteon 11-11-2023 ED Patient Education Note Normal [facility] ED Patient Summaryon 024 ED Patient Summary Normal [facility] Eosinophils detection in uri ne sediment by Jean stainOrdered By: Tera Nevarez on 11-11-2023 Eosinophils Jean stain Ql (Urine sed) 1 % 0-1 [facility] FT Blood GasesOrdered By: St candice Hebert on 11-11-2023 a/A Ratio Art 26.50 % Normal >=0.80% [facility] Resp Auto SS AaDO2 Art 157.8 mm[Hg] High 5.0 - 15.0 mmHg [facility] Re sp Auto SS Allens Test Positive (11/11/23 9:17 AM) Normal [facility] Resp Auto SS Base Excess Arterial -2.4 mmol/L Low >=2.8mmol/L [facility] Resp Auto SS cCa2+ Art 4.70 mg/dL Normal 4.40 - 5.30 mg/dL [facility] Re sp Auto SS cCl- Art 97.0 mmol/L Low 101.0 - 111.0 mmol/L [facility] Resp Auto SS cGlu Art 311 mg/dL High 55 - 99 mg/dL [facility] Resp Auto SS cK+ Art 5.5 mmol/L High 3.5 - 5.3 mmol/L [facility] Res p Auto SS cLac Art 1.0 mmol/L Normal 0.5 - 2.2 mmol/L [facility] Res p Auto SS smudger+ Art 135.0 mmol/L Normal 135.0 - 145.0 mmol/L [facility] Resp Auto SS Device Cannula (11/11/23 9:17 AM) Normal [facility] Resp Auto SS Drawn by korina clement Invalid Interpretation Code [facility] Resp Auto SS FCOHb Art 1.9 % Normal 1.5 - 4.9 % [facility] Resp Auto SS Comment on above: Interpretive Data: R eference range Nonsmoker <1.5% Smoker <5.0% Heavy Smoker <9.0% FIO2 BG 40 1 Invalid Interpretation Code [facility] [place] Resp Auto SS FMetHb Art 0.1 % Normal 0.0 - 1.9 % [facility] [place] Resp Auto SS FO2Hb Art 86.9 % Low 93.0 - 100.0 % [facility] Resp Auto SS HCO3 (Bld) [Moles/Vol] 22.2 mmol/L Normal 22.0 - 26.0 mmol/L [facility] Resp Auto SS Hemoglobin (Bld) [Mass/Vol] 12.8 g/dL Normal 12.0 - 17.0 gm/dL [facility] Resp Auto SS P CO2 Arterial 58.0 mm[Hg] High 35.0 - 45.0 mmHg FTM C Resp Auto SS P O2 Arterial 56.8 mm[Hg] Low 80.0 - 100.0 mmHg [facility] C Resp Auto SS pH (Bld) 7.255 [pH] Low 7.350 - 7.450 [facility] [place] Resp Auto SS Sample Site R Radial (11/11/23 9:17 AM) Normal [facility] [place] Resp Auto SS Sample Type Arterial Draw (11/11/23 9:17 AM) Normal [facility] Resp Auto SS HEMATOLOGYOrdered By: SYSTEM SYSTEM on 11-11-2023 Basophils/100 WBC (Bld) 0.5 % Normal 0.0 - 2.0 % [facility] Basophils/Leukocytes Auto (Bld) [Pure # fraction] 0.0 E9/L Normal 0.0 - 0.2 E9/L [facility] Eosinophils (Bld) [#/Vol] 0.2 E9/L Normal 0.0 - 0.5 E9/L [facility] Eosinophils/100 WBC (Bld) 1.9 % Normal 0.0 - 8.0 % [facility] Erythrocyte distribution width (RBC) [Ratio] 18.6 % High 10.9 - 14.2 % [facility] Hematocrit (Bld) [Volume fraction] 41.9 % Normal 37.7 - 49.0 % [facility] Hemoglobin (Bld) [Mass/Vol] 12.8 g/dL Low 13.5 - 17.5 gm/dL [facility] Lymphocytes (Bld) [#/Vol] 0.8 E9/L Low 1.0 - 4.0 E9/L [facility] Lymphocytes/100 WBC (Bld) 9.1 % Low 14.0 - 50.0 % [facility] MCH (RBC) [Entitic mass] 26.4 pg Low 27.0 - 34.0 pg [facility] MCHC (RBC) [Mass/Vol] 30.6 g/dL Low 31.4 - 36.0 gm/dL [facility] MCV (RBC) [Entitic vol] 86.3 fL Normal 80.0 - 100.0 fL [facility] Monocytes (Bld) [#/Vol] 0.5 E9/L Normal 0.2 - 1.0 E9/L [facility] Monocytes/100 WBC (Bld) 6.3 % Normal 4.0 - 14.0 % [facility] Neutrophils (Bld) [#/Vol] 7.0 E9/L Normal 2.0 - 7.5 E9/L [facility] Neutrophils/100 WBC (Bld) 82.2 % High 36.0 - 75.0 % [facility] Platelet 254.0 E9/L Normal 150.0 - 500.0 E9/L [facility] Platelet mean volume (Bld) [Entitic vol] 6.9 fL Normal 6.4 - 10.8 fL [facility] RBC (Bld) [#/Vol] 4.9 E12/L Normal 4.3 - 5.9 E12/L Re misol Heme WBC corrected for nucl RBC Auto (Bld) [#/Vol] 8.5 E9/L Normal 4.0 - 11.0 E9/L [facility] Ketones Auto test strip (U) [Mass/Vol]Ordered By: Tera Nevarez on 11-11-2023 Ketones (U) [Mass/Vol] Negative Negative [facility] Lactate [Moles/volume] in Se rum or PlasmaOrdered By: Tera Nevarez on 11-11-2023 Lactate [Moles/Vol] 0.8 mmol/L 0.5-2.2 [facility] Lactic Acidon 11-11-2023 Lactic Acid Lvl 1.5 mmol/L Normal 0.5-2.2 [facility] Comment on above: Performed By: #### 2 855583, 1577234, 95655683, 86567706, 81014600, 77029338, 9801196 ####[facility] [address] [place] [address] Monitor Recordon 11-11-2023 Monitor Record [id number]# 1.00TIFF Normal [facility] Monitor Record [id number]# 1.00TIFF Normal [facility] Natriuretic peptide B [Mass/ Vol]Ordered By: Tera Nevarez on 11-11-2023 Natriuretic peptide B (Bld) [Mass/Vol] 115.0 pg/mL 5-100 [facility] Nitrite Test strip Ql (U)Ord ered By: Tera Nevarez on 11-11-2023 Nitrite Ql (U) Negative Negative [facility] No Panel InformationOrdered By: Tera Nevarez on 11-11-2023 Blood Gas Liter Flow 5 L/min [facility] PT & PTTon 11-11-2023 aPTT Coag (PPP) [Time] 36.5 second(s) Normal 25.1-36.5 [facility] Comment on above: Result Comment: Para meter 15 days - 4 weeks 1 - 5 months 6 - 11 months 1 - 5 years 6 - 10 years 11 - 17 years PTT Mean: 35.4 (27.6-45.6) Mean: 33.5 (24.8-40.7) Mean: 32.4 (25.1-40.7) Mean: 31.6 (24.0-39.2) Mean: 31.6 (26.9-38.7) Mean: 31.0 (24.6-38.4) Pediatric Reference ranges were obtained from a study by Isaiah Hallman et al. prepared from 1437 samples obtained at 7 different centers using the same coagulation reagent and instrumentation as [facility] [place]. Currently there are no coagulation studies available worldwide for children to 14 days, and no normal ranges. Heparin therapeutic range (represented by Anti-Factor Xa activity of 0.2 - 0.4 U/mL) corresponds to PTT of 56.6 - 109.0 sec. Performed By: #### 2 310091, 8835246, 01295667, 66587662, 22752540, 04837964, 5557201 ####[facility] [address] [place] [address] INR Coag (PPP) [Relative time] 0.94 {INR} Invalid Interpretation Code [facility] Comment on above: Result Comment: INR results are specifically intended to assess patients stabilized on long-term Anticoagulation therapy suggested INR?s ?Less Intensive Anticoagulation? 2.0 ? 3.0Conventional Range 3.0 ? 4.5 Performed By: #### 2 836435, 2794505, 75788808, 78792238, 98698866, 36550669, 0338951 ####[facility] [address] [place] [address] PT Coag (PPP) [Time] 10.5 second(s) Normal 9.4-12.5 [facility] Comment on above: Result Comment: 15 d ays - 4 weeks 1 - 5 months 6 -11 months 1- 5 years 6-10 years 11 -17 years Mean: 11.2 (9.5-12.6) Mean: 11.0 (9.7-12.8) Mean: 11.0 (9.8-13.0) Mean: 11.3 (9.9-13.4) Mean: 11.7 (10.0-14.6) Mean: 11.8 (10.0 - 14.1) Pediatric Reference ranges were obtained from a study by Isaiah Hallman et al. prepared from 1437 samples obtained at 7 different centers using the same coagulation reagent and instrumentation as [facility] [place]. Currently there are no coagulation studies available worldwide for children to 14 days, and no normal ranges. Performed By: #### 2 162664, 9543595, 76890010, 13088391, 00009529, 15412807, 0364084 ####[facility] [address] [place] [address] Potassium [Moles/volume] in UrineOrdered By: Tera Nevarez on 11-11-2023 Potassium (U) [Moles/Vol] 29.7 mmol/L [facility] Comment on above: No reference range e stablished Pre-Arrival Noteon Pre-Arrival Note Normal [facility] Protein Auto test strip (U) [Mass/Vol]Ordered By: Tera Nevarez on 11-11-2023 Protein (U) [Mass/Vol] 100 mg/dL Negative [facility] Protein [Mass/volume] in Uri neOrdered By: Tera Nevarez on 11-11-2023 Protein (U) [Mass/Vol] 105 mg/dL 0-9 [facility] Sodium [Moles/volume] in Uri neOrdered By: Tera Nevarez on 11-11-2023 Sodium (U) [Moles/Vol] 18 mmol/L [facility] Comment on above: No reference range e stablished Specific gravity Auto test s trip (U) [Rel density]Ordered By: Tera Nevarez on 11-11-2023 Specific gravity (U) [Rel density] 1.017 1.001-1.030 [facility] Squamous epithelial cells de tection in urine sediment by light microscopyOrdered By: Tera Nevarez on 11-11-2023 Epithelial cells.squamous LM Ql (Urine sed) 0-1 [HPF] 0-2 [facility] Transfer Documentson 024 Transfer Documents [id number]# 1.00TIFF Normal [facility] Troponin 0 Hr.on 11-11-2023 Troponin 12.40 pg/mL Low 15.90-38.40 [facility] Comment on above: Result Comment: The 95% CI (Confidence Interval) PPV (Positive Predictive Value) for myocardial infarction in females is 38 pg/mL, in males 51 pg/mL. The results should be used in conjunction with clinical conditions of myocardial infarction.(Access High Sensitivity Troponin I Instructions For Use, Opal Caro, March 2018) Performed By: #### 2 775170, 1089809, 27329863, 51792498, 03677701, 24049012, 6647822 ####[facility] [address] [place] [address] Troponin 3 Hr.on 11-11-2023 Troponin 12.60 pg/mL Low 15.90-38.40 [facility] Comment on above: Result Comment: The 95% CI (Confidence Interval) PPV (Positive Predictive Value) for myocardial infarction in females is 38 pg/mL, in males 51 pg/mL. The results should be used in conjunction with clinical conditions of myocardial infarction.(Access High Sensitivity Troponin I Instructions For Use, [employer], March 2018) Performed By: #### 1 [id number] ####[facility] [address] [place] [address] Troponin 6 Hr.on 11-11-2023 Troponin 12.90 pg/mL Low 15.90-38.40 [facility] Comment on above: Result Comment: The 95% CI (Confidence Interval) PPV (Positive Predictive Value) for myocardial infarction in females is 38 pg/mL, in males 51 pg/mL. The results should be used in conjunction with clinical conditions of myocardial infarction.(B[employer] High Sensitivity Troponin I Instructions For Use, [employer], March 2018) Performed By: #### 1 [id number] ####[address] [place] [address] Troponin I.cardiac [Mass/vol ume] in Serum or Plasma by Detection limit <= 0.01 ng/Ordered By: Tera Nevarez on 11-11-2023 Troponin I.cardiac DL <= 0.01 ng/mL [Mass/Vol] 12.3 pg/mL 0.0-20.0 [facility] UA with Cult Rflxon 11-11-19 24 Bilirubin Ql (U) 1+ Abnormal Negative [facility] Comment on above: Performed By: #### 2 [id number] ####[facility] [address] [place] [address] Clarity (U) TURBID Abnormal Clear [facility] Comment on above: Performed By: #### 2 601959, [id number] ####[facility] [address] [place] [address] Color (U) BROWN Invalid Interpretation Code [facility] Comment on above: Performed By: #### 2 823883, [id number] ####[facility] [address] [place] [address] Glucose Test strip (U) [Mass/Vol] Negative Normal Negative [facility] Comment on above: Performed By: #### 2 086072, [id number] ####[facility] [address] [place] [address] Hemoglobin Ql (U) 3+ Abnormal Negative [facility] Comment on above: Performed By: #### 2 806997, [id number] ####[facility] [address] [place] [address] Ketones (U) [Mass/Vol] TRACE Invalid Interpretation Code Negative [facility] Comment on above: Performed By: #### 2 064498, [id number] ####[address] [address] Nitrite Ql (U) Positive Abnormal Negative [facility] Comment on above: Performed By: #### 2 741412, [id number] ####[address] [address] pH (U) 5.5 [pH] Invalid Interpretation Code 5.0-9.0 [facility] Comment on above: Performed By: #### 2 918147, [id number] ####[address] [address] Protein (U) [Mass/Vol] 2+ Abnormal Negative [facility] Comment on above: Performed By: #### 2 676705, [id number] ####[address] [address] Specific gravity (U) [Rel density] >=1.030 Invalid Interpretation Code 1.005-1.030 [facility] Comment on above: Performed By: #### 2 125627, [id number] ####[facility] [address] [place] [address] UA Bacteria 2+ [id number] Abnormal Trace [facility] Comment on above: Performed By: #### 2 736361, [id number] ####[address] [address] UA Mucous Trace Normal Negative [facility] Comment on above: Performed By: #### 2 483329, [id number] ####[facility] [address] [place] [address] UA RBC >75 Abnormal 0-3 [facility] Comment on above: Performed By: #### 2 948013, [id number] ####[facility] [address] [place] [address] UA Squam Epithelial 0-2 Normal 0-2 [facility] Comment on above: Performed By: #### 2 393817, [id number] ####[facility] [address] [place] [address] UA WBC 31-75 Abnormal 0-5 [facility] Comment on above: Performed By: #### 2 703266, [id number] ####[facility] [address] [place] [address], [place] [address] Urobilinogen Qn (U) 0.2 Normal 0.0-1.0 [facility] Comment on above: Performed By: #### 2 930197, [id number] ####[facility] [address] [place] [address] WBC Auto Ql (U) 1+ Abnormal Negative [facility] Comment on above: Performed By: #### 2 416612, [id number] ####[facility] [address] [place] [address] UA Spec Desc Clean Catch Normal [facility] Comment on above: Performed By: #### 2 437995, [id number] ####[facility] [address] [place] [address] URINALYSISOrdered By: Yohannes Schmidt on 11-11-2023 Bilirubin Ql (U) 1+ *ABN* (11/11/23 9:14 AM) Invalid Interpretation Code Negative [facility] UA Auto SS Clarity (U) Turbid *ABN* (11/11/23 9:14 AM) Invalid Interpretation Code Clear [facility] UA Auto SS Color (U) BROWN Invalid Interpretation Code [facility] UA Auto SS Glucose Test strip (U) [Mass/Vol] Negative (11/11/23 9:14 AM) Normal Negative [facility] UA Auto SS Hemoglobin Ql (U) 3+ *ABN* (11/11/23 9:14 AM) Invalid Interpretation Code Negative [facility] UA Auto SS Ketones (U) [Mass/Vol] Trace *NA* (11/11/23 9:14 AM) Invalid Interpretation Code Negative [facility] UA Auto SS Nitrite Ql (U) Positive *ABN* (11/11/23 9:14 AM) Invalid Interpretation Code Negative [facility] UA Auto SS pH (U) 5.5 *NA* (11/11/23 9:14 AM) Invalid Interpretation Code 5.0 - 9.0 [facility] UA Auto SS Protein (U) [Mass/Vol] 2+ *ABN* (11/11/23 9:14 AM) Invalid Interpretation Code Negative [facility] UA Auto SS Specific gravity (U) [Rel density] >=1.030 *NA* (11/11/23 9:14 AM) Invalid Interpretation Code 1.005 - 1.030 [facility] UA Auto SS UA Bacteria 2+ graded/HPF Invalid Interpretation Code Tracegraded/HPF [facility] UA Auto SS UA Mucous Trace Normal Negative [facility] UA Auto SS UA RBC >75 graded/HPF Invalid Interpretation Code 0-3graded/HPF [facility] UA Auto SS UA Squam Epithelial 0-2 graded/HPF Normal 0-2graded/HP F [facility] UA Auto SS UA WBC 31-75 *ABN* (11/11/23 9:14 AM) Invalid Interpretation Code 0-5 [facility] UA Auto SS Urobilinogen Qn (U) 0.2 (11/11/23 9:14 AM) Normal 0.0 - 1.0 [facility] UA Auto SS WBC Auto Ql (U) 1+ *ABN* (11/11/23 9:14 AM) Invalid Interpretation Code Negative [facility] UA Auto SS URINALYSISOrdered By: Paddy turner on 11-11-2023 UA Spec Desc Clean Catch (11/11/23 9:14 AM) Normal [facility] UA Auto SS Work Phone: Urine bacteria detection by automated methodOrdered By: Tera Nevarez on 11-11-2023 Bacteria Auto Ql (U) None seen None Seen [facility] Urine clarity by refractomet ry automatedOrdered By: Tera Nevarez on 11-11-2023 Clarity Refractometry automated (U) Turbid Clear [facility] Urine culture routineOrdered By: Tera Nevarez on 11-11-2023 Bacteria identified Cx Nom (U) Kaelyn albicans [facility] Urine glucose measurement by automated test strip (mass/volume)Ordered By: Tera Nevarez on 11-11-2023 Glucose Auto test strip (U) [Mass/Vol] Normal mg/dL Normal [facility] Urine hemoglobin detection b y automated test stripOrdered By: Tera Nevarez on 11-11-2023 Hemoglobin Auto test strip Ql (U) 3+ Negative [facility] Urine leukocyte esterase det ection by automated test stripOrdered By: Tera Nevarez on 11-11-2023 Leukocyte esterase Auto test strip Ql (U) 3+ Negative [facility] Urobilinogen Auto test strip (U) [Mass/Vol]Ordered By: Tera Nevarez on 11-11-2023 Urobilinogen (U) [Mass/Vol] Normal mg/dL Normal [facility] XR Chest Single Viewon 11-10 XR Chest Single View Normal [facility] Yeast detection in urine sed iment by light microscopyOrdered By: Tera Nevarez on 11-11-2023 Yeast LM Ql (Urine sed) Hyphae present [HPF] None Seen [facility] Comment on above: 2+ eGFRon 11-11-2023 eGFR 12 mL/min/1.73 m2 Low >=59 [facility] Comment on above: Order Comment: Order added by Discern Expert. Performed By: #### 2 540247, 0440214, [id number], [id number], [id number], [id number], [id number] ####[facility] [address] [place] [address] pH Auto test strip (U)Ordere d By: Tera Nevarez on 11-11-2023 pH (U) 5.0 [pH] 5.0-9.0 [facility] Ambulatory Visit Summaryon 0 11-01-2023 Ambulatory Visit Summary Normal [facility] CNPNon 10-31-2023 CNPN Telephone (PODCCP) NICOLE LORA ([id number]) 1960 M Date Time Provider Department 10/31/23 MOUNIKA BROOKE [facility] During your visit today, we recorded the following information about you: Allergies As of Date: 10/31/2023 Noted Allergy Reaction PENICILLINS 12/01/2014 2 - Rash Date Reviewed: 10/25/2023 Reviewed by: Matt Kingston RN - Fully Assessed Reason for Visit: Follow Up Phone Call [[phone]] Cmt: Post Discharge F/U - attempt made. No answer. Prescriptions as of 10/31/2023 - empagliflozin (JARDIANCE) 10 mg tablet Take 1 tablet by mouth once daily. - hydrALAZINE (APRESOLINE) 10 mg tablet Take 1 tablet by mouth every 12 hours. - torsemide (DEMADEX) 20 mg tablet Take 3 tablets by mouth two times a day. - atorvastatin (LIPITOR) 40 mg tablet - budesonide-formoterol (SYMBICORT) 160-4.5 mcg/actuation inhaler Inhale 2 Puffs as instructed. - gabapentin (NEURONTIN) 600 mg tablet Take 600 mg by mouth three times a day. - guaiFENesin (MUCINEX) 600 mg 12 hr tablet Take 1,200 mg by mouth. - FIASP FLEXTOUCH U-100 INSULIN 100 unit/mL (3 mL) pen inject 15-18-20 PLUS ISS #2 (EXPECT DAILY DOSE OF 80 UNITS) - rOPINIRole (REQUIP) 1 mg tablet Take 1 mg by mouth daily at bedtime. - tamsulosin (FLOMAX) 0.4 mg Take 1 capsule by mouth every afternoon. - pantoprazole DR (PROTONIX) 40 mg tablet Take 40 mg by mouth once daily. - insulin regular human (HUMULIN R) 100 unit/mL injection Inject 15 Units subcutaneously three times daily before meals. - INSULIN GLARGINE,HUM.REC.ANLO G (LANTUS SOLOSTAR SUBCUTANEOUS) Inject 40 Units subcutaneously daily at bedtime. - ASPIRIN (ASPIR-81 ORAL) Take 81 mg by mouth once daily. Problem List As Of Date 10/31/2023 Noted Resolved Fluid overload [E87.70] 10/24/2023 Type 2 diabetes mellitus with diabetic polyneur* Stage 3b chronic kidney disease (HCC) [N18.32] Primary hypertension [I10] Acute on chronic respiratory failure with hypox* 10/28/2023 Restless leg syndrome [G25.81] Acute on chronic heart failure with preserved e*10/24/2023 Obesity, Class III, BMI >= 40 [E66.01] 10/24/2023 Systolic congestive heart failure (HCC) [I50.20]10/24/2023 Acute on chronic congestive heart failure (HCC)*10/25/2023 Acute respiratory failure with hypoxia and hype*10/25/2023 Acute pulmonary edema (HCC) [J81.0] 10/26/2023 Encounter Status:Closed by KIKO DEL VALLE on 10/31/23 Normal [facility] Consent for Treatmenton 10-19 Consent for Treatment [id number]#1 .00TIFF [facility] Discharge Instructionson Discharge Instructions [id number]# 1.00TIFF [facility] ED Clinical Summaryon 2023 ED Clinical Summary Normal [facility] ED Note-Physicianon 10-30-19 ED Note-Physician Normal [facility] Comment on above: Result Comment: Elec tronically Signed By: Staci Beck DO\Date and Time Signed: 10/30/23 05:22 EDT ED Patient Education Noteon 10-30-2023 ED Patient Education Note Normal [facility] ED Patient Summaryon 024 ED Patient Summary Normal [facility] CBC W Auto Differential pane l (Bld)on 10-28-2023 Basophils (Bld) [#/Vol] 0.04 10*3/uL Normal <0.11 [facility] Comment on above: Order Comment: Speci men Type: BLOOD SPECIMEN Ordering Facility: [facility] Address: [address] [place] [address] Performed By: #### 1 9123-04, #### [facility] CLIA [id number] [address] [place] [address] [place] Basophils/100 WBC (Bld) 0.7 % Normal [facility] Comment on above: Order Comment: Speci men Type: BLOOD SPECIMEN Ordering Facility: [facility] Address: [address] [place] [address] Performed By: #### 1 9123-04, #### [facility] CLIA [id number] [address] [place] [address] [place] Differential cell count method Nom (Bld) Auto Normal [facility] Comment on above: Order Comment: Speci men Type: BLOOD SPECIMEN Ordering Facility: [facility] Address: [address] [place] [address] Performed By: #### 1 9123-04, #### [facility] CLIA [id number] [address] [place] [address] [place] Eosinophils (Bld) [#/Vol] 0.32 10*3/uL Normal <0.46 [facility] Comment on above: Order Comment: Speci men Type: BLOOD SPECIMEN Ordering Facility: [facility] Address: [address] [place] [address] Performed By: #### 1 9123-04, #### [facility] CLIA [id number] [address] [place] [address] [place] Eosinophils/100 WBC (Bld) 5.4 % Normal [facility] Comment on above: Order Comment: Speci men Type: BLOOD SPECIMEN Ordering Facility: [facility] Address: [address] [place] [address] Performed By: #### 1 9123-04, #### [facility] CLIA [id number] [address] [place] [address] [place] Erythrocyte distribution width (RBC) [Ratio] 16.1 % High 11.5-15.0 [facility] Comment on above: Order Comment: Speci men Type: BLOOD SPECIMEN Ordering Facility: [facility] Address: [address] [place] [address] Performed By: #### 1 27, 26175-6 #### [facility] CLIA [id number] [address] [place] [address] [place] Hematocrit (Bld) [Volume fraction] 41.3 % Normal 39.0-51.0 [facility] Comment on above: Order Comment: Speci men Type: BLOOD SPECIMEN Ordering Facility: [facility] Address: [address] [place] [address] Performed By: #### 1 89, #### [facility] CLIA [id number] [address] [place] [address] [place] Hemoglobin (Bld) [Mass/Vol] 12.3 g/dL Low 13.0-17.0 [facility] Comment on above: Order Comment: Speci men Type: BLOOD SPECIMEN Ordering Facility: [facility] Address: [address] [place] [address] Performed By: #### 1 4622, #### [facility] CLIA [id number] [address] [place] [address] [place] Immature granulocytes (Bld) [#/Vol] 10*3/uL Normal <0.10 [facility] Comment on above: Order Comment: Speci men Type: BLOOD SPECIMEN Ordering Facility: [facility] Address: [address] [place] [address] Performed By: #### 1 1423-9, #### [facility] CLIA [id number] [address] [place] [address] [place] Immature granulocytes/100 WBC (Bld) 0.3 % Normal [facility] Comment on above: Order Comment: Speci men Type: BLOOD SPECIMEN Ordering Facility: [facility] Address: [address] [place] [address] Performed By: #### 1 14, 79560-6 #### [facility] CLIA [id number] [address] [place] [address] [place] Lymphocytes (Bld) [#/Vol] 1.01 10*3/uL Normal 1.00-4.00 [facility] Comment on above: Order Comment: Speci men Type: BLOOD SPECIMEN Ordering Facility: [facility] Address: [address] [place] [address] Performed By: #### 1 9123-9, #### [facility] CLIA [id number] [address] [place] [address] [place] Lymphocytes/100 WBC (Bld) 17.0 % Normal [facility] Comment on above: Order Comment: Speci men Type: BLOOD SPECIMEN Ordering Facility: [facility] Address: [address] [place] [address] Performed By: #### 1 9123-9, 44724-5 #### [facility] CLIA [id number] [address] [place] [address] [place] MCH (RBC) [Entitic mass] 26.6 pg Normal 26.0-34.0 [facility] Comment on above: Order Comment: Speci men Type: BLOOD SPECIMEN Ordering Facility: [facility] Address: [address] [place] [address] Performed By: #### 1 9123-9, #### [facility] CLIA [id number] [address] [place] [address] [place] MCHC (RBC) [Mass/Vol] 29.8 g/dL Low 30.5-36.0 [facility] Comment on above: Order Comment: Speci men Type: BLOOD SPECIMEN Ordering Facility: [facility] Address: [address] [place] [address] Performed By: #### 1 9123-9, 99602-7 #### [facility] CLIA [id number] [address] [place] [address] [place] MCV (RBC) [Entitic vol] 89.4 fL Normal 80.0-100.0 [facility] Comment on above: Order Comment: Speci men Type: BLOOD SPECIMEN Ordering Facility: [facility] Address: [address] [place] [address] Performed By: #### 1 239, 68158-3 #### [facility] CLIA [id number] [address] [place] [address] [place] Monocytes (Bld) [#/Vol] 0.67 10*3/uL Normal <0.87 [facility] Comment on above: Order Comment: Speci men Type: BLOOD SPECIMEN Ordering Facility: [facility] Address: [address] [place] [address] Performed By: #### 1 239, #### [facility] CLIA [id number] [address] [place] [address] [place] Monocytes/100 WBC (Bld) 11.3 % Normal [facility] Comment on above: Order Comment: Speci men Type: BLOOD SPECIMEN Ordering Facility: [facility] Address: [address] [place] [address] Performed By: #### 1 9123-04, #### [facility] CLIA [id number] [address] [place] [address] [place] Neutrophils (Bld) [#/Vol] 3.88 10*3/uL Normal 1.45-7.50 [facility] Comment on above: Order Comment: Speci men Type: BLOOD SPECIMEN Ordering Facility: [facility] Address: [address] [place] [address] Performed By: #### 1 23, #### [facility] CLIA [id number] [address] [place] [address] [place] Neutrophils/100 WBC (Bld) 65.3 % Normal [facility] Comment on above: Order Comment: Speci men Type: BLOOD SPECIMEN Ordering Facility: [facility] Address: [address] [place] [address] Performed By: #### 1 91239, 69544-2 #### [facility] CLIA [id number] [address] [place] [address] [place] Nucleated RBC (Bld) [#/Vol] 10*3/uL Normal <0.01 [facility] Comment on above: Order Comment: Speci men Type: BLOOD SPECIMEN Ordering Facility: [facility] Address: [address] [place] [address] Performed By: #### 1 9123-9, 83628-6 #### [facility] CLIA [id number] [address] [place] [address] [place] Nucleated RBC/100 WBC (Bld) [Ratio] 0.0 /100 WBC Normal [facility] Comment on above: Order Comment: Speci men Type: BLOOD SPECIMEN Ordering Facility: [facility] Address: [address] [place] [address] Performed By: #### 1 9123-9, 13157-1 #### [facility] CLIA [id number] [address] [place] [address] [place] Platelet mean volume (Bld) [Entitic vol] 8.9 fL Low 9.0-12.7 [facility] Comment on above: Order Comment: Speci men Type: BLOOD SPECIMEN Ordering Facility: [facility] Address: [address] [place] [address] Performed By: #### 1 9123-9, 76514-0 #### [facility] CLIA [id number] [address] [place] [address] [place] Platelets (Bld) [#/Vol] 250 10*3/uL Normal 150-400 [facility] Comment on above: Order Comment: Speci men Type: BLOOD SPECIMEN Ordering Facility: [facility] Address: [address] [place] [address] Performed By: #### 1 9123-9, 54592-3 #### [facility] CLIA [id number] [address] [place] [address] [place] RBC (Bld) [#/Vol] 4.62 10*6/uL Normal 4.20-6.00 [facility] Comment on above: Order Comment: Speci men Type: BLOOD SPECIMEN Ordering Facility: [facility] Address: [address] [place] [address] Performed By: #### 1 9123-9, 22260-3 #### [facility] CLIA [id number] [address] [place] [id number] [place] WBC (Bld) [#/Vol] 5.94 10*3/uL Normal 3.70-11.00 [facility] Comment on above: Order Comment: Speci men Type: BLOOD SPECIMEN Ordering Facility: [facility] Address: [facility] [place] [address] Performed By: #### 1 9123-9, 52583-3 #### [facility] CLIA [id number] [address] [place] [id number] [place] CNDSon 10-28-2023 CNDS HNO ID: [id number] Author: TAY STEWART MD Service: General Internal Medicine Author Type: Physician Type: Discharge Summary Filed: 10/28/2023 11:58 Note Text: DISCHARGE SUMMARY PATIENT NAME: Nicole Lora Code Status: Not on file Highest Readmission Risk Score: 25 The 30 day readmissions risk score is derived from an internally validated risk model which evaluates patient level characteristics, utilization history, medication orders and lab results up until the day of discharge. Patients with a score of 40 or above are considered highest risk for readmission. Specific patient level drivers will be listed at the bottom of the summary. Admission Information Admission Information ADMIT DATE: 10/23/2023 DISCHARGE DATE: 10/28/2023 MY DOCTORS AND MEDICAL TEAM: My Main Hospital Doctor: Tay Stewart MD Primary Care Provider: Mounika Brooke MD, MD My Medical Team Members: Treatment Team: Attending Provider: Tay Stewart MD Consulting: Naun Couch MD MY CONDITION AT DISCHARGE: Stable REASON I WAS IN THE HOSPITAL: edema in lower extremities SUMMARY OF WHAT HAPPENED WHILE I WAS IN THE HOSPITAL: better OTHER PROBLEMS/DIAGNOSIS: Principal Problem: Fluid overload Active Problems: Type 2 diabetes mellitus with diabetic polyneuropathy, with long-term current use of insulin (HCC) Stage 3b chronic kidney disease (HCC) Primary hypertension Restless leg syndrome Acute on chronic heart failure with preserved ejection fraction (HCC) Obesity, Class III, BMI >= 40 Systolic congestive heart failure (HCC) Acute on chronic congestive heart failure (HCC) Acute respiratory failure with hypoxia and hypercapnia (HCC) Acute pulmonary edema (HCC) Resolved Problems: Acute on chronic respiratory failure with hypoxemia (HCC) OPERATIONS PERFORMED WHILE IN THE HOSPITAL: None IMPORTANT TEST/PROCEDURES: No procedures performed TEST RESULTS NOT AVAILABLE AT THIS TIME: No pending results Discharge Disposition Discharge Disposition: Home With Self Care Activity When You Leave the Hospital Resume pre-hospital activity Diet Instructions Resume your pre-hospital diet Call Your Doctor If There is an unusual odor from the wound area You have a severe headache You have lightheadedness, fainting, or confusion You have persistent nausea/vomiting over 24 hours You have persistent or heavy bleeding Your temperature is greater than 101F Follow Up Appointments Follow-Up Appointment Office number: [phone] When: In 1 week Patient/Parents to call for appointment?: Yes Tay Stewart MD [phone] [place] [address] PCP Requested Referral Follow-Up Appointment With: your Primary Care Doctor When: In 1 week Patient/Parents to call for appointment?: Yes Additional Provider to Provider Information: This is a 63 year old male with a PMHx of CKD 3b, chronic respiratory failure, morbid obesity, insulin dependent diabetes, left forefoot amputation admitted from home, lives in [place] for fluid overload. The patient states he's had 4 hospital admissions so far this year for the same and he has had medications adjusted; states he gets better while admitted receiving IV lasix and then gains weight and develops worsening edema when he returns home. He's gained about 10 lbs since recent admission. He states he drinks about a half a gallon of water a day. He does not follow any fluid restriction or salt restriction. He admits to compliance with his medications, but is not able to name his medications. He denies worsening shortness of breath, wears 4 L NC at baseline. Endorses orthopnea, sleeps upright, this is his recent baseline. He endorses dyspnea on exertion, has been doing okay ambulating around his apartment however. He denies cough or wheezing, fever or chills. He endorses chronic worsening low back pain bilaterally and right groin pain but denies acute leg weakness, new numbness tingling, saddle anesthesia, bowel incontinence or constipation. In ED SpO2 94% time 6 L, BP 148/61, pulse 73, temp 97.7 Fahrenheit, respiratory rate 20 Creatinine 2.0, glucose 138, BNP 1124, MARINA 172-> 167, CBC unremarkable, chest x-ray 1. Patchy linear nodular opacity near the left lung base, which is of uncertain chronicity. Possible considerations include an area of infiltrate, atelectasis or scarring. Recommend short interval follow-up radiograph to ensure clearing. 2. Findings suggestive of pulmonary venous hypertension and possible mild pulmonary edema. DVT ultrasound bilateral lower extremity EGATIVE STUDY FOR PROXIMAL DVT IN THE LEFT AND RIGHT LOWER EXTREMITIES. NONDIAGNOSTIC STUDY FOR CALF DVT IN THE LEFT AND RIGHT LOWER EXTREMITIES. NEGATIVE STUDY FOR SUPERFICIAL THROMBOPHLEBITIS IN THE IMAGED SEGMENTS OF THE LEFT AND RIGHT LOWER EXTREMITIES. EKG normal sinus rhythm, rate 77, no ischemic (more content not included)... Normal [facility] Magnesium SerPl-mCncon 10-27 Magnesium [Mass/Vol] 2.0 mg/dL Normal 1.7-2.3 [facility] Comment on above: Order Comment: [place] Type: BLOOD SPECIMEN Ordering Facility: [facility] Address: [address] [place] [address] Performed By: #### 1 9123-9, 09469-0 #### [facility] CLIA [id number] [address] [place] [address] [place] Renal function 2000 panelon 10-28-2023 Albumin [Mass/Vol] 3.3 g/dL Low 3.9-4.9 [facility] Comment on above: Order Comment: [place] Type: BLOOD SPECIMEN Ordering Facility: [facility] Address: [address] [place] [address] Performed By: #### 1 9123-9, 55456-9 #### [facility] CLIA [id number] [place], [place] [id number] [place] Anion gap [Moles/Vol] 8 mmol/L Low 9-18 [facility] Comment on above: Order Comment: [place] Type: BLOOD SPECIMEN Ordering Facility: [facility] Address: [address] [place] [address] Performed By: #### 1 9123-9, 23420-5 #### [facility] CLIA [id number] [address] [place] [address] [place] Calcium [Mass/Vol] 9.1 mg/dL Normal 8.5-10.2 [facility] Comment on above: Order Comment: Speci men Type: BLOOD SPECIMEN Ordering Facility: [facility] Address: [address] [place] [address] Performed By: #### 1 9123-9, 99777-2 #### [facility] CLIA [id number] [address] [place] [address] [place] Chloride [Moles/Vol] 97 mmol/L Normal 97-105 [facility] Comment on above: Order Comment: Speci men Type: BLOOD SPECIMEN Ordering Facility: [facility] Address: [address] [place] [address] Performed By: #### 1 9123-9, 90953-1 #### [facility] CLIA [id number] [address] [place] [address] [place] CO2 [Moles/Vol] 35 mmol/L High 22-30 [facility] Comment on above: Order Comment: Speci men Type: BLOOD SPECIMEN Ordering Facility: [facility] Address: [address] [place] [address] Performed By: #### 1 9123-9, 69510-9 #### [facility] CLIA [id number] [address] [place] [address] [place] Creatinine [Mass/Vol] 1.72 mg/dL High 0.73-1.22 [facility] Comment on above: Order Comment: Speci men Type: BLOOD SPECIMEN Ordering Facility: [facility] Address: [address] [place] [address] Performed By: #### 1 9123-9, 10415-9 #### [facility] CLIA [id number] [address] [place] [address] [place] Creatinine and Glomerular filtration rate.predicted panel (S/P/Bld) 44 mL/min/1.73m??? Low >=60 [facility] Comment on above: Order Comment: Speci men Type: BLOOD SPECIMEN Ordering Facility: [facility] Address: [address] [place] [address] Result Comment: Meredith mated Glomerular Filtration Rate (eGFR) is calculated using the 2020 CKD-EPI creatinine equation. This equation utilizes serum creatinine, sex, and age as parameters. The creatinine assay has traceable calibration to isotope dilution-mass spectrometry. Refer to KDIGO guidelines for clinical interpretation. In patients with unstable renal function, e.g. those with acute kidney injury, the eGFR may not accurately reflect actual GFR. Performed By: #### 1 9123-9, 67278-7 #### [facility] CLIA [id number] [address] [place] [address] [place] Glucose [Mass/Vol] 152 mg/dL High 74-99 [facility] Comment on above: Order Comment: [place] Type: BLOOD SPECIMEN Ordering Facility: [facility] Address: [address] [place] [address] Result Comment: The [place] [employer] (ADA) provides guidance for cutoff [...] Standards of Medical Care in Diabetes 2016, [place] [employer]. Diabetes Care. 2016.39(Suppl 1). Performed By: #### 1 9123-9, 37933-2 #### [facility] CLIA [id number] [address] [place] [address] [place] Phosphate [Mass/Vol] 4.6 mg/dL Normal 2.7-4.8 [facility] Comment on above: Order Comment: [place] Type: BLOOD SPECIMEN Ordering Facility: [facility] Address: [address] [place] [address] Performed By: #### 1 9123-9, 59592-5 #### [facility] CLIA [id number] [address] [place] [address] [place] Potassium [Moles/Vol] 4.0 mmol/L Normal 3.7-5.1 [facility] Comment on above: Order Comment: Speci men Type: BLOOD SPECIMEN Ordering Facility: [facility] Address: [address] [place] [address] Performed By: #### 1 9123-9, 54111-9 #### [facility] CLIA [id number] [address] [place] [address] [place] Sodium [Moles/Vol] 140 mmol/L Normal 136-144 [facility] Comment on above: Order Comment: Speci men Type: BLOOD SPECIMEN Ordering Facility: [facility] Address: [address] [place] [address] Performed By: #### 1 9123-9, 28578-9 #### [facility] CLIA [id number] [address] [place] [address] [place] Urea nitrogen [Mass/Vol] 39 mg/dL High 9-24 [facility] Comment on above: Order Comment: Speci men Type: BLOOD SPECIMEN Ordering Facility: [facility] Address: [address] [place] [address] Performed By: #### 1 9123-9, 81790-2 #### [facility] CLIA [id number] [address] [place] [address] [place] CBC W Auto Differential pane l (Bld)on 10-27-2023 Basophils (Bld) [#/Vol] 10*3/uL Normal <0.11 [facility] Comment on above: Order Comment: Speci men Type: BLOOD SPECIMEN Ordering Facility: [facility] Address: [address] [place] [address] Performed By: #### 1 9123-9, 91496-8 #### [facility] CLIA [id number] [address] [place] [address] [place] Basophils/100 WBC (Bld) 0.3 % Normal [facility] Comment on above: Order Comment: Speci men Type: BLOOD SPECIMEN Ordering Facility: [facility] Address: [address] [place] [address] Performed By: #### 1 239, #### [facility] CLIA [id number] [address] [place] [address] [place] Differential cell count method Nom (Bld) Auto Normal [facility] Comment on above: Order Comment: Speci men Type: BLOOD SPECIMEN Ordering Facility: [facility] Address: [address] [place] [address] Performed By: #### 1 9123-04, #### [facility] CLIA [id number] [address] [place] [address] [place] Eosinophils (Bld) [#/Vol] 0.26 10*3/uL Normal <0.46 [facility] Comment on above: Order Comment: Speci men Type: BLOOD SPECIMEN Ordering Facility: [facility] Address: [address] [place] [address] Performed By: #### 1 9123-04, #### [facility] CLIA [id number] [address] [place] [address] [place] Eosinophils/100 WBC (Bld) 4.4 % Normal [facility] Comment on above: Order Comment: Speci men Type: BLOOD SPECIMEN Ordering Facility: [facility] Address: [address] [place] [address] Performed By: #### 1 9123-04, #### [facility] CLIA [id number] [address] [place] [address] [place] Erythrocyte distribution width (RBC) [Ratio] 16.0 % High 11.5-15.0 [facility] Comment on above: Order Comment: Speci men Type: BLOOD SPECIMEN Ordering Facility: [facility] Address: [address] [place] [address] Performed By: #### 1 239, #### [facility] CLIA [id number] [address] [place] [address] [place] Hematocrit (Bld) [Volume fraction] 39.9 % Normal 39.0-51.0 [facility] Comment on above: Order Comment: Speci men Type: BLOOD SPECIMEN Ordering Facility: [facility] Address: [address] [place] [address] Performed By: #### 1 239, 70616-7 #### [facility] CLIA [id number] [address] [place] [address] [place] Hemoglobin (Bld) [Mass/Vol] 12.0 g/dL Low 13.0-17.0 [facility] Comment on above: Order Comment: Speci men Type: BLOOD SPECIMEN Ordering Facility: [facility] Address: [address] [place] [address] Performed By: #### 1 239, 90421-2 #### [facility] CLIA [id number] [address] [place] [address] [place] Immature granulocytes (Bld) [#/Vol] 10*3/uL Normal <0.10 [facility] Comment on above: Order Comment: Speci men Type: BLOOD SPECIMEN Ordering Facility: [facility] Address: [address] [place] [address] Performed By: #### 1 23, 56550-4 #### [facility] CLIA [id number] [address] [place] [address] [place] Immature granulocytes/100 WBC (Bld) 0.3 % Normal [facility] Comment on above: Order Comment: Speci men Type: BLOOD SPECIMEN Ordering Facility: [facility] Address: [address] [place] [address] Performed By: #### 1 23, 05165-2 #### [facility] CLIA [id number] [address] [place] [address] [place] Lymphocytes (Bld) [#/Vol] 0.96 10*3/uL Low 1.00-4.00 [facility] Comment on above: Order Comment: Speci men Type: BLOOD SPECIMEN Ordering Facility: [facility] Address: [address] [place] [address] Performed By: #### 1 9123-9, 28106-7 #### [facility] CLIA [id number] [address] [place] [address] [place] Lymphocytes/100 WBC (Bld) 16.4 % Normal [facility] Comment on above: Order Comment: Speci men Type: BLOOD SPECIMEN Ordering Facility: [facility] Address: [address] [place] [address] Performed By: #### 1 9123-9, 58146-1 #### [facility] CLIA [id number] [address] [place] [address] [place] MCH (RBC) [Entitic mass] 26.7 pg Normal 26.0-34.0 [facility] Comment on above: Order Comment: Speci men Type: BLOOD SPECIMEN Ordering Facility: [facility] Address: [address] [place] [address] Performed By: #### 1 9123-9, #### [facility] CLIA [id number] [address] [place] [address] [place] MCHC (RBC) [Mass/Vol] 30.1 g/dL Low 30.5-36.0 [facility] Comment on above: Order Comment: Speci men Type: BLOOD SPECIMEN Ordering Facility: [facility] Address: [address] [place] [address] Performed By: #### 1 1723-9, #### [facility] CLIA [id number] [address] [place] [address] [place] MCV (RBC) [Entitic vol] 88.9 fL Normal 80.0-100.0 [facility] Comment on above: Order Comment: Speci men Type: BLOOD SPECIMEN Ordering Facility: [facility] Address: [address] [place] [address] Performed By: #### 1 9123-9, #### [facility] CLIA [id number] [address] [place] [address] [place] Monocytes (Bld) [#/Vol] 0.70 10*3/uL Normal <0.87 [facility] Comment on above: Order Comment: Speci men Type: BLOOD SPECIMEN Ordering Facility: [facility] Address: [address] [place] [address] Performed By: #### 1 239, #### [facility] CLIA [id number] [address] [place] [address] [place] Monocytes/100 WBC (Bld) 11.9 % Normal [facility] Comment on above: Order Comment: Speci men Type: BLOOD SPECIMEN Ordering Facility: [facility] Address: [address] [place] [address] Performed By: #### 1 91239, #### [facility] CLIA [id number] [address] [place] [address] [place] Neutrophils (Bld) [#/Vol] 3.91 10*3/uL Normal 1.45-7.50 [facility] Comment on above: Order Comment: Speci men Type: BLOOD SPECIMEN Ordering Facility: [facility] Address: [address] [place] [address] Performed By: #### 1 91239, #### [facility] CLIA [id number] [address] [place] [address] [place] Neutrophils/100 WBC (Bld) 66.7 % Normal [facility] Comment on above: Order Comment: Speci men Type: BLOOD SPECIMEN Ordering Facility: [facility] Address: [address] [place] [address] Performed By: #### 1 91239, #### [facility] CLIA [id number] [address] [place] [address] [place] Nucleated RBC (Bld) [#/Vol] 10*3/uL Normal <0.01 [facility] Comment on above: Order Comment: Speci men Type: BLOOD SPECIMEN Ordering Facility: [facility] Address: [address] [place] [address] Performed By: #### 1 9123-9, 84749-0 #### [facility] CLIA [id number] [address] [place] [address] [place] Nucleated RBC/100 WBC (Bld) [Ratio] 0.0 /100 WBC Normal [facility] Comment on above: Order Comment: Speci men Type: BLOOD SPECIMEN Ordering Facility: [facility] Address: [address] [place] [address] Performed By: #### 1 9123-9, 67854-0 #### [facility] CLIA [id number] [address] [place] [address] [place] Platelet mean volume (Bld) [Entitic vol] 8.7 fL Low 9.0-12.7 [facility] Comment on above: Order Comment: Speci men Type: BLOOD SPECIMEN Ordering Facility: [facility] Address: [address] [place] [address] Performed By: #### 1 9123-9, 74099-3 #### [facility] CLIA [id number] [address] [place] [address] [place] Platelets (Bld) [#/Vol] 222 10*3/uL Normal 150-400 [facility] Comment on above: Order Comment: Speci men Type: BLOOD SPECIMEN Ordering Facility: [facility] Address: [address] [place] [address] Performed By: #### 1 9123-9, 68486-6 #### [facility] CLIA [id number] [address] [place] [address] [place] RBC (Bld) [#/Vol] 4.49 10*6/uL Normal 4.20-6.00 [facility] Comment on above: Order Comment: Speci men Type: BLOOD SPECIMEN Ordering Facility: [facility] Address: [address] [place] [address] Performed By: #### 1 9123-9, 00030-1 #### [facility] CLIA [id number] [address] [place] [address] [place] WBC (Bld) [#/Vol] 5.87 10*3/uL Normal 3.70-11.00 [facility] Comment on above: Order Comment: Speci men Type: BLOOD SPECIMEN Ordering Facility: [facility] Address: [address] [place] [address] Performed By: #### 1 9123-9, 08051-0 #### [facility] CLIA [id number] [place] [facility] CONSULT PROGon 10-27-2023 CONSULT PROG HNO ID: [id number] Author: NAUN COUCH MD Service: Nephrology Author Type: Physician Type: Consult Progress Note Filed: 10/27/2023 15:52 Note Text: Nephrology SERVICE CONSULT PROGRESS NOTE SERVICE DATE: 10/27/2023 SERVICE TIME: 11:25 AM Subjective INTERVAL HPI: No acute events overnight Current Facility-Administered Medications Medication Dose Route Frequency atorvastatin 40 mg tab(s) (LIPITOR) 40 mg ORAL AT BEDTIME aspirin 81 mg chewable tab(s) 81 mg ORAL DAILY insulin lispro 15 Units injection (rapid acting) (ADMElog) 15 Units SUBCUTANEOUS w MEALS gabapentin 600 mg tab(s) (NEURONTIN) 600 mg ORAL TID guaiFENesin 1,200 mg ER tab(s) (MUCINEX) 1,200 mg ORAL q 12 H rOPINIRole 2 mg tab(s) (REQUIP) 2 mg ORAL AT BEDTIME tamsulosin 0.4 mg cap(s) (FLOMAX) 0.4 mg ORAL AT BEDTIME melatonin 9 mg tab(s) 9 mg ORAL AT BEDTIME aluminum-magnesium hydroxide-simethicone 200-200-20 mg/5 mL 30 mL 30 mL ORAL q 6 H PRN ondansetron (PF) 4 mg injection (ZOFRAN) 4 mg INTRAVENOUS q 6 H PRN senna-docusate 8.6-50 mg 1 tablet (SENNA-S) 1 tablet ORAL BID PRN polyethylene glycol 3350 17 g packet 17 g ORAL DAILY PRN acetaminophen 500-1,000 mg tab(s) (TYLENOL) 500-1,000 mg ORAL q 6 H PRN NaCl 0.9% iv flush bag 20 mL INTRAVENOUS PRN dextrose 40 % 15 g 15 g ORAL PRN Or glucagon 1 mg injection 1 mg INTRAMUSCULAR PRN Or dextrose 10% iv bolus 12.5 g INTRAVENOUS PRN mometasone-formoterol 100-5 mcg/actuation 2 Puff inhaler (DULERA) 2 Puff INHALATION BID furosemide 40 mg injection (LASIX) 40 mg INTRAVENOUS q 8 H insulin glargine 10 Units pen (long acting) 10 Units SUBCUTANEOUS BID heparin 5,000 Units injection 5,000 Units SUBCUTANEOUS q 12 H ipratropium-albuterol 3 mL nebulizer solution (DUONEB) 3 mL INHALATION q 4 H PRN hydrALAZINE 10 mg tab(s) (APRESOLINE) 10 mg ORAL q 12 H cephALEXin 500 mg cap(s) (KEFLEX) 500 mg ORAL q 6 H insulin lispro injection (rapid acting) (ADMElog) SUBCUTANEOUS w MEALS AND HS acetaZOLAMIDE 500 mg tab(s) (DIAMOX) 500 mg ORAL BID Objective PHYSICAL EXAM: Physical Exam Performed: Lungs: diminished throughout Cardiac: Normal S1 AND S2, no murmur, gallop or rub Abdomen: Soft, obese non-tender, no rebound tenderness, BS x4 Extremities: ++BLE edema, distal pulses palpable Neuro: Alert and oriented x3, speech clear, no focal motor deficit noted BP 140/64 Pulse 72 Temp (Src) 98.2 (Oral) Resp 18 Ht 5' 11 (1.80m) Wt 311 lb 4.8 oz (141.2kg) SpO2 93% BMI 43.44 kg/(m2). O2 Therapy: Nasal Cannula, Liters: 4.00, %FIO2: 45 Intake/Output Summary (Last 24 hours) at 10/27/2023 1125 Last data filed at 10/27/2023 0852 Gross per 24 hour Intake 240 ml Output 3900 ml Net -3660 ml DATA: Diagnostic tests reviewed for today's visit: Glucose (mg/dL) Date Value 10/27/2023 145 Potassium (mmol/L) Date Value 10/27/2023 4.1 Sodium (mmol/L) Date Value 10/27/2023 144 Chloride (mmol/L) Date Value 10/27/2023 100 CO2 (mmol/L) Date Value 10/27/2023 35 Creatinine (mg/dL) Date Value 10/27/2023 1.62 BUN (mg/dL) Date Value 10/27/2023 40 Anion Gap (mmol/L) Date Value 10/27/2023 9 Calcium, Total (mg/dL) Date Value 10/27/2023 9.1 Impression/Recommenda tions Mr. Lora is a 63 year old male with a past medical history of CKD III with baseline Cr up ~ 1.5, chronic respiratory failure on 4L home O2 since 05/2023, morbid obesity, insulin dependent diabetes, and left forefoot amputation admitted from home who presented to [facility] with complaints of worsening shortness of breath, bilateral lower extremity edema and ~ 10lb weight gain in the last few weeks. Patient reports multiple hospital admissions in 2023 at [facility] in [place] for fluid overload. He states he usually feels better after being diuresed with IV Lasix but fluid builds up again . He reports drinking approximately 1/2 gallon of water per day. He states he is complaint with home dose of Torsemide 40 mg daily. In the ED, imaging significant for possible mild pulmonary congestion and patchy linear nodular opacity near left lung base. Initial labs significant for Cr 2.0/eGFR 37, BUN 60, glu 138, pro-BNP1,124, and trop 172-167-152. Nephrology consulted for management of AMY and fluid volume overload. -AMY on CKD stage III prerenal most likely related to cardiorenal pathology Protein/cr ratio 1.07, Renal US no hydronephrosis, chronic indwelling elliott in place Started on IV Lasix, continue to monitor strict IANDO via chronic elliott Maintain fluid restriction of 1500cc/day renal function stable, possibly new baseline Cr of ~1.6-1.8, will trend -Acute on chronic respiratory failure in the setting of fluid overload and morbid obesity Acute on chronic heart failure Only requiring baseline oxygen 4L now Echo 55% with normal diastolic heart function, no valvular abnormalities, continue diuresis with IV Lasix up to 40 mg TID More stable, feeling b (more content not included)... Normal [facility] Comprehensive metabolic 2000 panelon 10-27-2023 Albumin [Mass/Vol] 3.3 g/dL Low 3.9-4.9 [facility] Comment on above: Order Comment: [place] Type: BLOOD SPECIMEN Ordering Facility: [facility] Address: [address] [place] [address] Performed By: #### 1 9123-9, 99187-1 #### [facility] CLIA [id number] [address] [place] [address] [place] ALP [Catalytic activity/Vol] 88 U/L Normal 38-113 [facility] Comment on above: Order Comment: [place] Type: BLOOD SPECIMEN Ordering Facility: [facility] Address: [address] [place] [address] Performed By: #### 1 9123-9, 90906-7 #### [facility] CLIA [id number] [place] [address] [place] ALT [Catalytic activity/Vol] 11 U/L Normal 10-54 [facility] Comment on above: Order Comment: Speci men Type: BLOOD SPECIMEN Ordering Facility: [facility] Address: [address] [place] [address] Performed By: #### 1 9123-9, 27114-1 #### [facility] CLIA [id number] [address] [place] [address] [place] Anion gap [Moles/Vol] 9 mmol/L Normal 9-18 [facility] Comment on above: Order Comment: Speci men Type: BLOOD SPECIMEN Ordering Facility: [facility] Address: [address] [place] [address] Performed By: #### 1 9123-9, 46541-0 #### [facility] CLIA [id number] [address] [place] [address] [place] AST [Catalytic activity/Vol] 11 U/L Low 14-40 [facility] Comment on above: Order Comment: Speci men Type: BLOOD SPECIMEN Ordering Facility: [facility] Address: [address] [place] [address] Performed By: #### 1 9123-9, 24992-9 #### [facility] CLIA [id number] [address] [place] [address] [place] Bilirubin [Mass/Vol] 0.6 mg/dL Normal 0.2-1.3 [facility] Comment on above: Order Comment: Speci men Type: BLOOD SPECIMEN Ordering Facility: [facility] Address: [address] [place] [address] Performed By: #### 1 9123-9, 72708-2 #### [facility] CLIA [id number] [address] [place] [address] [place] Calcium [Mass/Vol] 9.1 mg/dL Normal 8.5-10.2 [facility] Comment on above: Order Comment: Speci men Type: BLOOD SPECIMEN Ordering Facility: [facility] Address: [address] [place] [address] Performed By: #### 1 9123-9, 52042-5 #### [facility] CLIA [id number] [address] [place] [address] [place] Chloride [Moles/Vol] 100 mmol/L Normal 97-105 [facility] Comment on above: Order Comment: Speci men Type: BLOOD SPECIMEN Ordering Facility: [facility] Address: [address] [place] [address] Performed By: #### 1 9123-9, 05951-8 #### [facility] CLIA [id number] [address] [place] [address] [place] CO2 [Moles/Vol] 35 mmol/L High 22-30 [facility] Comment on above: Order Comment: Speci men Type: BLOOD SPECIMEN Ordering Facility: [facility] Address: [address] [place] [address] Performed By: #### 1 9123-9, 13011-8 #### [facility] CLIA [id number] [address] [place] [address] [place] Creatinine [Mass/Vol] 1.62 mg/dL High 0.73-1.22 [facility] Comment on above: Order Comment: Speci men Type: BLOOD SPECIMEN Ordering Facility: [facility] Address: [address] [place] [address] Performed By: #### 1 9123-9, 50168-6 #### [facility] CLIA [id number] [address] [place] [address] [place] Creatinine and Glomerular filtration rate.predicted panel (S/P/Bld) 47 mL/min/1.73m??? Low >=60 [facility] Comment on above: Order Comment: Speci men Type: BLOOD SPECIMEN Ordering Facility: [facility] Address: [address] [place] [address] Result Comment: Meredith mated Glomerular Filtration Rate (eGFR) is calculated using the 2020 CKD-EPI creatinine equation. This equation utilizes serum creatinine, sex, and age as parameters. The creatinine assay has traceable calibration to isotope dilution-mass spectrometry. Refer to KDIGO guidelines for clinical interpretation. In patients with unstable renal function, e.g. those with acute kidney injury, the eGFR may not accurately reflect actual GFR. Performed By: #### 1 9123-9, 21565-0 #### [facility] CLIA [id number] [address] [place] [address] [place] Glucose [Mass/Vol] 145 mg/dL High 74-99 [facility] Comment on above: Order Comment: [place] Type: BLOOD SPECIMEN Ordering Facility: [facility] Address: [address] [place] [address] Result Comment: The [place] [employer] (ADA) provides guidance for cutoff [...] Standards of Medical Care in Diabetes 2016, [place] [employer]. Diabetes Care. 2016.39(Suppl 1). Performed By: #### 1 9123-9, 50090-0 #### [facility] CLIA [id number] [address] [place] [address] [place] Potassium [Moles/Vol] 4.1 mmol/L Normal 3.7-5.1 [facility] Comment on above: Order Comment: [place] Type: BLOOD SPECIMEN Ordering Facility: [facility] Address: [address] [place] [address] Performed By: #### 1 9123-9, 58117-4 #### [facility] CLIA [id number] [address] [place] [address] [place] Protein [Mass/Vol] 6.3 g/dL Normal 6.3-8.0 [facility] Comment on above: Order Comment: [place] Type: BLOOD SPECIMEN Ordering Facility: [facility] Address: [address] [place] [address] Performed By: #### 1 9123-9, 53826-8 #### [facility] CLIA [id number] [address] [place], [place] [id number] [place] Sodium [Moles/Vol] 144 mmol/L Normal 136-144 [facility] Comment on above: Order Comment: Speci men Type: BLOOD SPECIMEN Ordering Facility: [facility] Address: [address] [place] [address] Performed By: #### 1 9123-9, 79874-5 #### [facility] CLIA [id number] [address] [place] [address] [place] Urea nitrogen [Mass/Vol] 40 mg/dL High 05-14 [facility] Comment on above: Order Comment: Speci men Type: BLOOD SPECIMEN Ordering Facility: [facility] Address: [address] [place] [address] Performed By: #### 1 9123-9, 55936-3 #### [facility] CLIA [id number] [address] [place] [address] [place] Magnesium SerPl-mCncon 10-26 Magnesium [Mass/Vol] 1.9 mg/dL Normal 1.7-2.3 [facility] Comment on above: Order Comment: Speci men Type: BLOOD SPECIMEN Ordering Facility: [facility] Address: [address] [place] [address] Performed By: #### 1 9123-9, 47626-6 #### [facility] CLIA [id number] [address] [place] [address] [place] Phosphate SerPl-mCncon 10-26 Phosphate [Mass/Vol] 4.1 mg/dL Normal 2.7-4.8 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 States, that's not the mask I wore last night. Addiment on wearing venti mask while asleep. Refusing BiPAP. Per charting, patient wore BiPAP last night. Placed on 15L 40% venti mask. SIGNATURE: Velia Hargrove RRT PATIENT NAME: Nicole Lora DATE: October 26, 2023 TIME: 10:12 PM PAGER/CONTACT #: [facility] CBC W Auto Differential pane l (Bld)on 10-26-2023 Basophils (Bld) [#/Vol] 0.04 10*3/uL Normal <0.11 [facility] Comment on above: Order Comment: Speci men Type: BLOOD SPECIMEN Ordering Facility: [facility] Address: [address] [place] [address] Performed By: #### P TTAC #### [facility] CLIA [id number] [address] [place] [address] [place] Basophils/100 WBC (Bld) 0.6 % Normal [facility] Comment on above: Order Comment: Speci men Type: BLOOD SPECIMEN Ordering Facility: [facility] Address: [address] [place] [address] Performed By: #### P TTAC #### [facility] CLIA [id number] [address] [place] [address] [place] Differential cell count method Nom (Bld) Auto Normal [facility] Comment on above: Order Comment: Speci men Type: BLOOD SPECIMEN Ordering Facility: [facility] Address: [address] [place] [address] Performed By: #### P TTAC #### [facility] CLIA [id number] [address] [place] [address] [place] Eosinophils (Bld) [#/Vol] 0.29 10*3/uL Normal <0.46 [facility] Comment on above: Order Comment: Speci men Type: BLOOD SPECIMEN Ordering Facility: [facility] Address: [address] [place] [address] Performed By: #### P TTAC #### [facility] CLIA [id number] [address] [place] [address] [place] Eosinophils/100 WBC (Bld) 4.5 % Normal [facility] Comment on above: Order Comment: Speci men Type: BLOOD SPECIMEN Ordering Facility: [facility] Address: [address] [place] [address] Performed By: #### P TTAC #### [facility] CLIA [id number] [address] [place] [address] [place] Erythrocyte distribution width (RBC) [Ratio] 16.3 % High 11.5-15.0 [facility] Comment on above: Order Comment: Speci men Type: BLOOD SPECIMEN Ordering Facility: [facility] Address: [address] [place] [address] Performed By: #### P TTAC #### [facility] CLIA [id number] [address] [place] [address] [place] Hematocrit (Bld) [Volume fraction] 38.8 % Low 39.0-51.0 [facility] Comment on above: Order Comment: Speci men Type: BLOOD SPECIMEN Ordering Facility: [facility] Address: [address] [place] [address] Performed By: #### P TTAC #### [facility] CLIA [id number] [address] [place] [address] [place] Hemoglobin (Bld) [Mass/Vol] 11.6 g/dL Low 13.0-17.0 [facility] Comment on above: Order Comment: Speci men Type: BLOOD SPECIMEN Ordering Facility: [facility] Address: [address] [place] [address] Performed By: #### P TTAC #### [facility] CLIA [id number] [address] [place] [address] [place] Immature granulocytes (Bld) [#/Vol] 0.06 10*3/uL Normal <0.10 [facility] Comment on above: Order Comment: Speci men Type: BLOOD SPECIMEN Ordering Facility: [facility] Address: [address] [place] [address] Performed By: #### P TTAC #### [facility] CLIA [id number] [address] [place] [address] [place] Immature granulocytes/100 WBC (Bld) 0.9 % Normal [facility] Comment on above: Order Comment: Speci men Type: BLOOD SPECIMEN Ordering Facility: [facility] Address: [address] [place] [address] Performed By: #### P TTAC #### [facility] CLIA [id number] [address] [place] [address] [place] Lymphocytes (Bld) [#/Vol] 0.94 10*3/uL Low 1.00-4.00 [facility] Comment on above: Order Comment: Speci men Type: BLOOD SPECIMEN Ordering Facility: [facility] Address: [address] [place] [address] Performed By: #### P TTAC #### [facility] CLIA [id number] [address] [place] [address] [place] Lymphocytes/100 WBC (Bld) 14.5 % Normal [facility] Comment on above: Order Comment: Speci men Type: BLOOD SPECIMEN Ordering Facility: [facility] Address: [address] [place] [address] Performed By: #### P TTAC #### [facility] CLIA [id number] [address] [place] [address] [place] MCH (RBC) [Entitic mass] 27.0 pg Normal 26.0-34.0 [facility] Comment on above: Order Comment: Speci men Type: BLOOD SPECIMEN Ordering Facility: [facility] Address: [address] [place] [address] Performed By: #### P TTAC #### [facility] CLIA [id number] [address] [place] [address] [place] MCHC (RBC) [Mass/Vol] 29.9 g/dL Low 30.5-36.0 [facility] Comment on above: Order Comment: Speci men Type: BLOOD SPECIMEN Ordering Facility: [facility] Address: [address] [place] [address] Performed By: #### P TTAC #### [facility] CLIA [id number] [address] [place] [address] [place] MCV (RBC) [Entitic vol] 90.2 fL Normal 80.0-100.0 [facility] Comment on above: Order Comment: Speci men Type: BLOOD SPECIMEN Ordering Facility: [facility] Address: [address] [place] [address] Performed By: #### P TTAC #### [facility] CLIA [id number] [address] [place] [address] [place] Monocytes (Bld) [#/Vol] 0.71 10*3/uL Normal <0.87 [facility] Comment on above: Order Comment: Speci men Type: BLOOD SPECIMEN Ordering Facility: [facility] Address: [address] [place] [address] Performed By: #### P TTAC #### [facility] CLIA [id number] [address] [place] [address] [place] Monocytes/100 WBC (Bld) 10.9 % Normal [facility] Comment on above: Order Comment: Speci men Type: BLOOD SPECIMEN Ordering Facility: [facility] Address: [address] [place] [address] Performed By: #### P TTAC #### [facility] CLIA [id number] [address] [place] [address] [place] Neutrophils (Bld) [#/Vol] 4.45 10*3/uL Normal 1.45-7.50 [facility] Comment on above: Order Comment: Speci men Type: BLOOD SPECIMEN Ordering Facility: [facility] Address: [address] [place] [address] Performed By: #### P TTAC #### [facility] CLIA [id number] [address] [place] [address] [place] Neutrophils/100 WBC (Bld) 68.6 % Normal [facility] Comment on above: Order Comment: Speci men Type: BLOOD SPECIMEN Ordering Facility: [facility] Address: [address] [place] [address] Performed By: #### P TTAC #### [facility] CLIA [id number] [address] [place] [address] [place] Nucleated RBC (Bld) [#/Vol] 10*3/uL Normal <0.01 [facility] Comment on above: Order Comment: Speci men Type: BLOOD SPECIMEN Ordering Facility: [facility] Address: [address] [place] [address] Performed By: #### P TTAC #### [facility] CLIA [id number] [address] [place] [address] [place] Nucleated RBC/100 WBC (Bld) [Ratio] 0.0 /100 WBC Normal [facility] Comment on above: Order Comment: Speci men Type: BLOOD SPECIMEN Ordering Facility: [facility] Address: [address] [place] [address] Performed By: #### P TTAC #### [facility] CLIA [id number] [address] [place] [address] [place] Platelet mean volume (Bld) [Entitic vol] 9.0 fL Normal 9.0-12.7 [facility] Comment on above: Order Comment: Speci men Type: BLOOD SPECIMEN Ordering Facility: [facility] Address: [address] [place] [address] Performed By: #### P TTAC #### [facility] CLIA [id number] [address] [place] [address] [place] Platelets (Bld) [#/Vol] 247 10*3/uL Normal 150-400 [facility] Comment on above: Order Comment: Speci men Type: BLOOD SPECIMEN Ordering Facility: [facility] Address: [address] [place] [address] Performed By: #### P TTAC #### [facility] CLIA [id number] [address] [place] [address] [place] RBC (Bld) [#/Vol] 4.30 10*6/uL Normal 4.20-6.00 [facility] Comment on above: Order Comment: [place] Type: BLOOD SPECIMEN Ordering Facility: [facility] Address: [address] [place] [address] Performed By: #### P TTAC #### [facility] CLIA [id number] [place] WBC (Bld) [#/Vol] 6.49 10*3/uL Normal 3.70-11.00 [facility] Comment on above: Order Comment: [place] Type: BLOOD SPECIMEN Ordering Facility: [facility] Address: [address] [place] [address] Performed By: #### P TTAC #### [facility] CLIA [id number] [place] [address] CONSULTon 10-26-2023 CONSULT HNO ID: [id number] Author: STEFANIE BARRETT MD Service: Pulmonary Disease Author Type: Physician Type: Consults Filed: 10/26/2023 16:43 Note Text: PULMONARY CONSULT PROGRESS NOTE SERVICE DATE: 10/26/2023 Subjective INTERVAL HPI: Patient seen and examined. He is sitting comfortably in chair, currently on 4L O2 which is reportedly his baseline. He tells me he has been wearing this since May at which time he had PNA. He does not have PAP therapy at home and has been told he he needs evaluation by sleep medicine but he has too many appointments to see everyone so has deferred this appointment thus far. He did not tolerate the BIPAP well last night. He also has RLS which impacts his sleep. He has a diagnosed history of asthma (reports about 5-10 years ago, did spirometry though this is unavailable) for which he takes symbicort BID and albuterol 1-2 times a day. He typically takes the albuterol for increased shortness of breath. He reports being a never smoker. Minimal secondhand smoke exposure. 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 He did not some recent exposure to carbon monoxidein his apartment as a result of a decaying scooter battery. MEDICATIONS: Current Facility-Administered Medications Medication Dose Route Frequency atorvastatin 40 mg tab(s) (LIPITOR) 40 mg ORAL AT BEDTIME aspirin 81 mg chewable tab(s) 81 mg ORAL DAILY insulin lispro 15 Units injection (rapid acting) (ADMElog) 15 Units SUBCUTANEOUS w MEALS gabapentin 600 mg tab(s) (NEURONTIN) 600 mg ORAL TID guaiFENesin 1,200 mg ER tab(s) (MUCINEX) 1,200 mg ORAL q 12 H rOPINIRole 2 mg tab(s) (REQUIP) 2 mg ORAL AT BEDTIME tamsulosin 0.4 mg cap(s) (FLOMAX) 0.4 mg ORAL AT BEDTIME melatonin 9 mg tab(s) 9 mg ORAL AT BEDTIME aluminum-magnesium hydroxide-simethicone 200-200-20 mg/5 mL 30 mL 30 mL ORAL q 6 H PRN ondansetron (PF) 4 mg injection (ZOFRAN) 4 mg INTRAVENOUS q 6 H PRN senna-docusate 8.6-50 mg 1 tablet (SENNA-S) 1 tablet ORAL BID PRN polyethylene glycol 3350 17 g packet 17 g ORAL DAILY PRN acetaminophen 500-1,000 mg tab(s) (TYLENOL) 500-1,000 mg ORAL q 6 H PRN NaCl 0.9% iv flush bag 20 mL INTRAVENOUS PRN dextrose 40 % 15 g 15 g ORAL PRN Or glucagon 1 mg injection 1 mg INTRAMUSCULAR PRN Or dextrose 10% iv bolus 12.5 g INTRAVENOUS PRN mometasone-formoterol 100-5 mcg/actuation 2 Puff inhaler (DULERA) 2 Puff INHALATION BID furosemide 40 mg injection (LASIX) 40 mg INTRAVENOUS q 8 H insulin glargine 10 Units pen (long acting) 10 Units SUBCUTANEOUS BID heparin 5,000 Units injection 5,000 Units SUBCUTANEOUS q 12 H ipratropium-albuterol 3 mL nebulizer solution (DUONEB) 3 mL INHALATION q 4 H PRN hydrALAZINE 10 mg tab(s) (APRESOLINE) 10 mg ORAL q 12 H cephALEXin 500 mg cap(s) (KEFLEX) 500 mg ORAL q 6 H insulin lispro injection (rapid acting) (ADMElog) SUBCUTANEOUS w MEALS AND HS Objective PHYSICAL EXAM: Physical Exam Vitals and nursing note reviewed. Constitutional: General: He is not in acute distress. Appearance: Normal appearance. He is normal weight. Cardiovascular: Rate and Rhythm: Normal rate and regular rhythm. Heart sounds: No murmur heard. Pulmonary: Effort: Pulmonary effort is normal. No respiratory distress. Breath sounds: Normal breath sounds. No wheezing or rales. Musculoskeletal: General: Deformity present. Right lower leg: Edema present. Left lower leg: Edema present. Neurological: General: No focal deficit present. Mental Status: He is alert. Mental status is at baseline. Psychiatric: Mood and Affect: Mood normal. Behavior: Behavior normal. BP 140/57 Pulse 71 Temp (Src) 97 (Tympanic) Resp 20 Ht 5' 11 (1.80m) Wt 311 lb 4.8 oz (141.2kg) SpO2 96% BMI 43.44 kg/(m2). O2 Therapy: Nasal Cannula, Liters: 4.00, %FIO2: 45 Patient Vitals for the past 24 hrs: BP Temp Temp src Pulse Resp SpO2 Weight 10/26/23 1107 140/57 36.1 ?C (97 ?F) Tympanic 71 20 96 % -- 10/26/23 0823 -- -- -- -- -- -- (!) 141.2 kg (311 lb 4.8 oz) 10/26/23 0737 -- -- -- 70 18 96 % -- 10/26/23 0701 139/64 36.7 ?C (98.1 ?F) Oral 68 20 95 % -- 10/26/23 0520 -- -- -- 67 19 91 % -- 10/26/23 0444 123/60 36.5 ?C (97.7 ?F) Oral 61 16 95 % -- 10/26/23 0025 -- -- -- 77 20 96 % -- 10/26/23 0023 142/61 36.7 ?C (98.1 ?F) Axillary 75 16 94 % -- 10/25/232145 -- -- -- 73 23 92 % -- 10/25/232138 -- -- -- 70 18 90 % -- 10/25/232123 141/60 36.6 ?C (97.9 ?F) Oral 73 16 91 % -- 10/25/23 1645 142/64 36.5 ?C (97.7 ?F) Oral 73 18 93 % -- 10/25/23 1600 128/76 36.7 ?C (98 ?F) Oral 70 16 93 % -- 10/25/23 1500 121/63 -- -- 71 17 96 % -- 10/25/23 1400 114/57 -- -- 73 20 95 % -- 10/25/23 1300 126/70 -- -- 75 17 90 % -- 10/25/23 1200 -- 36.9 ?C (98.4 ?F) Oral -- -- -- -- Intake/Output Summary (Last 24 hours) at 10/26/2023 1115 Last data filed at 10/26/2023 0947 Gross per 24 hour Intake 580 ml Output 2950 ml Net -2370 ml Lines, Drains, and Airways Li (more content not included)... Normal [facility] CONSULT PROGon 10-26-2023 CONSULT PROG HNO ID: [id number] Author: GORDO BUTLER APRN.CNP Service: Cardiovascular Medicine Author Type: Nurse Practitioner Type: Consult Progress Note Filed: 10/26/2023 14:03 Note Text: [facility] CARDIOVASCULAR MEDICINE PROGRESS NOTE (Template ID [id number]) SERVICE DATE: 10/26/2023 SERVICE TIME: 1115 PRIMARY SERVICE: HOSPITAL DAY: #2 INTERVAL HISTORY Awake, alert, sitting in chair. Breathing close to baseline PHYSICAL EXAM BP 140/57 Pulse 71 Temp 36.1 ?C (97 ?F) (Tympanic) Resp 20 Ht 180.3 cm (5' 11 ) Wt (!) 141.2 kg (311 lb 4.8 oz) SpO2 96% BMI 43.42 kg/m? Intake/Output Summary (Last 24 hours) at 10/26/2023 1352 Last data filed at 10/26/2023 1320 Gross per 24 hour Intake 700 ml Output 3750 ml Net -3050 ml General Appearance: Well developed, Well nourished , and Obese HEENT: PERRLA Lungs: Clear and Respiratory effort: normal Heart: Regular rate AND rhythm, No heaves, No lifts, No thrills, No rubs, and S1, S2 normal Abdomen: Soft Skin: Warm and Dry Musculoskeletal: No deformities Neurologic/Psychiatri c: Oriented to time, place AND person MEDICATIONS Current Facility-Administered Medications Medication Dose Route Frequency atorvastatin 40 mg tab(s) (LIPITOR) 40 mg ORAL AT BEDTIME aspirin 81 mg chewable tab(s) 81 mg ORAL DAILY insulin lispro 15 Units injection (rapid acting) (ADMElog) 15 Units SUBCUTANEOUS w MEALS gabapentin 600 mg tab(s) (NEURONTIN) 600 mg ORAL TID guaiFENesin 1,200 mg ER tab(s) (MUCINEX) 1,200 mg ORAL q 12 H rOPINIRole 2 mg tab(s) (REQUIP) 2 mg ORAL AT BEDTIME tamsulosin 0.4 mg cap(s) (FLOMAX) 0.4 mg ORAL AT BEDTIME melatonin 9 mg tab(s) 9 mg ORAL AT BEDTIME aluminum-magnesium hydroxide-simethicone 200-200-20 mg/5 mL 30 mL 30 mL ORAL q 6 H PRN ondansetron (PF) 4 mg injection (ZOFRAN) 4 mg INTRAVENOUS q 6 H PRN senna-docusate 8.6-50 mg 1 tablet (SENNA-S) 1 tablet ORAL BID PRN polyethylene glycol 3350 17 g packet 17 g ORAL DAILY PRN acetaminophen 500-1,000 mg tab(s) (TYLENOL) 500-1,000 mg ORAL q 6 H PRN NaCl 0.9% iv flush bag 20 mL INTRAVENOUS PRN dextrose 40 % 15 g 15 g ORAL PRN Or glucagon 1 mg injection 1 mg INTRAMUSCULAR PRN Or dextrose 10% iv bolus 12.5 g INTRAVENOUS PRN mometasone-formoterol 100-5 mcg/actuation 2 Puff inhaler (DULERA) 2 Puff INHALATION BID furosemide 40 mg injection (LASIX) 40 mg INTRAVENOUS q 8 H insulin glargine 10 Units pen (long acting) 10 Units SUBCUTANEOUS BID heparin 5,000 Units injection 5,000 Units SUBCUTANEOUS q 12 H ipratropium-albuterol 3 mL nebulizer solution (DUONEB) 3 mL INHALATION q 4 H PRN hydrALAZINE 10 mg tab(s) (APRESOLINE) 10 mg ORAL q 12 H cephALEXin 500 mg cap(s) (KEFLEX) 500 mg ORAL q 6 H insulin lispro injection (rapid acting) (ADMElog) SUBCUTANEOUS w MEALS AND HS DATA: Diagnostic tests reviewed for today's visit: Most recent labs and imaging results. Medication and Non-Pharmacologic VTE Prophylaxis/Anticoagu lants Anticoagulant AND Antiplatelet Medications (From admission, onward) Start Dose Route Frequency Last Action Ordered Stop 10/25/23 0030 heparin 5,000 Units injection (Medical Risk Categories) 5,000 Units SUBCUTANEOUS EVERY 12 HOURS Given, 10/25 85710/25/23 0014 -- 10/24/23 0900 aspirin 81 mg chewable tab(s) 81 mg ORAL DAILY Given, 10/25 85710/24/23 0141 -- 10/25/2314 activity - [place] 10/24/23144 activity - [place]ize [place] VTE Prophylaxis: VTE prophylaxis appropriate ASSESSMENT AND PLAN Acute on chronic diastolic heart failure Acute on chronic hypercapnic/hypoxic respiratory failure CKD Elevated troponin-demand ischemia Elevated d-dimer HTN T2DM Morbid obestiy - presents with volume overload - echo with preserved LV function - continue diuresis per nephrology likely needs high doses of meds as outpatient - strict I/O, daily weights - elevated troponin likely in the setting of demand ischemia - aspirin/statin/hydral azine 75 mg BID - will sign off, please contact with questions Case to be discussed with staff Dr. Motta SIGNATURE: Gordo Butler APRN.CNP PATIENT NAME: Nicole Lora DATE: October 26, 2023 TIME: 1:52 PM [facility] CONSULT PROG HNO ID: [id number] Author: NAUN COUCH MD Service: Nephrology Author Type: Physician Type: Consult Progress Note Filed: 10/26/2023 18:41 Note Text: Nephrology SERVICE CONSULT PROGRESS NOTE SERVICE DATE: 10/26/2023 SERVICE TIME: 11:59 AM Subjective INTERVAL HPI: No acute events overnight Current Facility-Administered Medications Medication Dose Route Frequency atorvastatin 40 mg tab(s) (LIPITOR) 40 mg ORAL AT BEDTIME aspirin 81 mg chewable tab(s) 81 mg ORAL DAILY insulin lispro 15 Units injection (rapid acting) (ADMElog) 15 Units SUBCUTANEOUS w MEALS gabapentin 600 mg tab(s) (NEURONTIN) 600 mg ORAL TID guaiFENesin 1,200 mg ER tab(s) (MUCINEX) 1,200 mg ORAL q 12 H rOPINIRole 2 mg tab(s) (REQUIP) 2 mg ORAL AT BEDTIME tamsulosin 0.4 mg cap(s) (FLOMAX) 0.4 mg ORAL AT BEDTIME melatonin 9 mg tab(s) 9 mg ORAL AT BEDTIME aluminum-magnesium hydroxide-simethicone 200-200-20 mg/5 mL 30 mL 30 mL ORAL q 6 H PRN ondansetron (PF) 4 mg injection (ZOFRAN) 4 mg INTRAVENOUS q 6 H PRN senna-docusate 8.6-50 mg 1 tablet (SENNA-S) 1 tablet ORAL BID PRN polyethylene glycol 3350 17 g packet 17 g ORAL DAILY PRN acetaminophen 500-1,000 mg tab(s) (TYLENOL) 500-1,000 mg ORAL q 6 H PRN NaCl 0.9% iv flush bag 20 mL INTRAVENOUS PRN dextrose 40 % 15 g 15 g ORAL PRN Or glucagon 1 mg injection 1 mg INTRAMUSCULAR PRN Or dextrose 10% iv bolus 12.5 g INTRAVENOUS PRN mometasone-formoterol 100-5 mcg/actuation 2 Puff inhaler (DULERA) 2 Puff INHALATION BID furosemide 40 mg injection (LASIX) 40 mg INTRAVENOUS q 8 H insulin glargine 10 Units pen (long acting) 10 Units SUBCUTANEOUS BID heparin 5,000 Units injection 5,000 Units SUBCUTANEOUS q 12 H ipratropium-albuterol 3 mL nebulizer solution (DUONEB) 3 mL INHALATION q 4 H PRN hydrALAZINE 10 mg tab(s) (APRESOLINE) 10 mg ORAL q 12 H cephALEXin 500 mg cap(s) (KEFLEX) 500 mg ORAL q 6 H insulin lispro injection (rapid acting) (ADMElog) SUBCUTANEOUS w MEALS AND HS Objective PHYSICAL EXAM: Physical Exam Performed: Lungs: Faint crackles bilateral bases, diminished throughout Cardiac: Normal S1 AND S2, no murmur, gallop or rub Abdomen: Soft, obese non-tender, no rebound tenderness, BS x4 Extremities: ++BLE edema, distal pulses palpable Neuro: Alert and oriented x3, speech clear, no focal motor deficit noted BP 140/57 Pulse 71 Temp (Src) 97 (Tympanic) Resp 20 Ht 5' 11 (1.80m) Wt 311 lb 4.8 oz (141.2kg) SpO2 96% BMI 43.44 kg/(m2). O2 Therapy: Nasal Cannula, Liters: 4.00, %FIO2: 45 Intake/Output Summary (Last 24 hours) at 10/26/2023 1159 Last data filed at 10/26/2023 0947 Gross per 24 hour Intake 580 ml Output 2950 ml Net -2370 ml DATA: Diagnostic tests reviewed for today's visit: Glucose (mg/dL) Date Value 10/26/2023 189 Potassium (mmol/L) Date Value 10/26/2023 4.3 Sodium (mmol/L) Date Value 10/26/2023 146 Chloride (mmol/L) Date Value 10/26/2023 101 CO2 (mmol/L) Date Value 10/26/2023 30 Creatinine (mg/dL) Date Value 10/26/2023 1.84 BUN (mg/dL) Date Value 10/26/2023 48 Anion Gap (mmol/L) Date Value 10/26/2023 15 Calcium, Total (mg/dL) Date Value 10/26/2023 9.1 Impression/Recommenda tions Mr. Lora is a 63 year old male with a past medical history of CKD III with baseline Cr up ~ 1.5, chronic respiratory failure on 4L home O2 since 05/2023, morbid obesity, insulin dependent diabetes, and left forefoot amputation admitted from home who presented to [facility] with complaints of worsening shortness of breath, bilateral lower extremity edema and ~ 10lb weight gain in the last few weeks. Patient reports multiple hospital admissions in 2023 at [facility] in [place] for fluid overload. He states he usually feels better after being diuresed with IV Lasix but fluid builds up again . He reports drinking approximately 1/2 gallon of water per day. He states he is complaint with home dose of Torsemide 40 mg daily. In the ED, imaging significant for possible mild pulmonary congestion and patchy linear nodular opacity near left lung base. Initial labs significant for Cr 2.0/eGFR 37, BUN 60, glu 138, pro-BNP1,124, and trop [phone]. Nephrology consulted for management of AMY and fluid volume overload. -AMY on CKD stage III prerenal most likely related to cardiorenal pathology Protein/cr ratio 1.07, Renal US no hydronephrosis, chronic indwelling elliott in place Started on IV Lasix, continue to monitor strict IANDO via chronic elliott Maintain fluid restriction of 1500cc/day renal function stable, possibly new baseline Cr of ~1.8, will trend -Acute on chronic respiratory failure in the setting of fluid overload and morbid obesity Acute on chronic heart failure Only requiring baseline oxygen 4L now Echo 55% with normal diastolic heart function, no valvular abnormalities, continue diuresis with IV Lasix up to 40 mg TID More stable, feeling better -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 Normal [facility] Magnesium SerPl-mCncon 10-25 Magnesium [Mass/Vol] 2.1 mg/dL Normal 1.7-2.3 [facility] Comment on above: Order Comment: Speci men Type: BLOOD SPECIMEN Ordering Facility: [facility] Address: [address] [place] [address] Performed By: #### 1 9123-9, 01526-0 #### [facility] CLIA [id number] [address] [place] [address] [place] Renal function 2000 panelon 10-26-2023 Albumin [Mass/Vol] 3.3 g/dL Low 3.9-4.9 [facility] Comment on above: Order Comment: Speci chapis Type: BLOOD SPECIMEN Ordering Facility: [facility] Address: [address] [place] [address] Performed By: #### 1 4223-9, 50094-3 #### [facility] CLIA [id number] [address] [place] [address] [place] Anion gap [Moles/Vol] 15 mmol/L Normal 9-18 [facility] Comment on above: Order Comment: Speci men Type: BLOOD SPECIMEN Ordering Facility: [facility] Address: [address] [place] [address] Performed By: #### 1 9123-9, 06367-5 #### [facility] CLIA [id number] [address] [place] [address] [place] Calcium [Mass/Vol] 9.1 mg/dL Normal 8.5-10.2 [facility] Comment on above: Order Comment: Speci men Type: BLOOD SPECIMEN Ordering Facility: [facility] Address: [address] [place] [address] Performed By: #### 1 8623-9, 20170-5 #### [facility] CLIA [id number] [address] [place] [address] [place] Chloride [Moles/Vol] 101 mmol/L Normal 97-105 [facility] Comment on above: Order Comment: Speci men Type: BLOOD SPECIMEN Ordering Facility: [facility] Address: [address] [place] [address] Performed By: #### 1 9123-9, 52636-3 #### [facility] CLIA [id number] [address] [place] [address] [place] CO2 [Moles/Vol] 30 mmol/L Normal 22-30 [facility] Comment on above: Order Comment: Speci men Type: BLOOD SPECIMEN Ordering Facility: [facility] Address: [address] [place] [address] Performed By: #### 1 9123-9, 24178-5 #### [facility] CLIA [id number] [address] [place] [address] [place] Creatinine [Mass/Vol] 1.84 mg/dL High 0.73-1.22 [facility] Comment on above: Order Comment: Speci men Type: BLOOD SPECIMEN Ordering Facility: [facility] Address: [address] [place] [address] Performed By: #### 1 9123-9, 45057-2 #### [facility] CLIA [id number] [address] [place] [address] [place] Creatinine and Glomerular filtration rate.predicted panel (S/P/Bld) 40 mL/min/1.73m??? Low >=60 [facility] Comment on above: Order Comment: Speci men Type: BLOOD SPECIMEN Ordering Facility: [facility] Address: [address] [place] [address] Result Comment: Meredith mated Glomerular Filtration Rate (eGFR) is calculated using the 2020 CKD-EPI creatinine equation. This equation utilizes serum creatinine, sex, and age as parameters. The creatinine assay has traceable calibration to isotope dilution-mass spectrometry. Refer to KDIGO guidelines for clinical interpretation. In patients with unstable renal function, e.g. those with acute kidney injury, the eGFR may not accurately reflect actual GFR. Performed By: #### 1 9123-9, 17979-2 #### [facility] CLIA [id number] [address] [place] [address] [place] Glucose [Mass/Vol] 189 mg/dL High 74-99 [facility] Comment on above: Order Comment: [place] Type: BLOOD SPECIMEN Ordering Facility: [facility] Address: [address] [place] [address] Result Comment: The [place] Diabetes Association (ADA) provides guidance for cutoff [...] Standards of Medical Care in Diabetes 2016, [place] [employer]. Diabetes Care. 2016.39(Suppl 1). Performed By: #### 1 9123-9, 57070-9 #### [facility] CLIA [id number] [address] [place] [address] [place] Phosphate [Mass/Vol] 3.9 mg/dL Normal 2.7-4.8 [facility] Comment on above: Order Comment: [place] Type: BLOOD SPECIMEN Ordering Facility: [facility] Address: [address] [place] [address] Performed By: #### 1 9123-9, 16393-1 #### [facility] CLIA [id number] [address] [place] [address] [place] Potassium [Moles/Vol] 4.3 mmol/L Normal 3.7-5.1 [facility] Comment on above: Order Comment: [place] Type: BLOOD SPECIMEN Ordering Facility: [facility] Address: [address] [place] [address] Performed By: #### 1 9123-9, 97323-9 #### [facility] CLIA [id number] [address] [place] [address] [place] Sodium [Moles/Vol] 146 mmol/L High 136-144 [facility] Comment on above: Order Comment: Speci men Type: BLOOD SPECIMEN Ordering Facility: [facility] Address: [address] [place] [address] Performed By: #### 1 9123-9, 75686-2 #### [facility] CLIA [id number] [address] [place] [address] [place] Urea nitrogen [Mass/Vol] 48 mg/dL High 9-24 [facility] Comment on above: Order Comment: Speci men Type: BLOOD SPECIMEN Ordering Facility: [facility] Address: [address] [place] [address] Performed By: #### 1 9123-9, 69292-5 #### [facility] CLIA [id number] [place] ALLIED HEALTHon 10-25-2023 ALLIED HEALTH HNO ID: [id number] Author: CLARA HARDIN RT(Zarina) Service: Radiology Author Type: Technologist Type: Allied Health Filed: 10/25/2023 05:00 Note Text: Radiology Service Progress Note PATIENT NAME: Nicole Lora DATE OF SERVICE: October 25, 2023 TIME: 4:59 AM PATIENT IDENTITY VERIFICATION COMPLETED USING TWO (2) IDENTIFIERS: Name and Date of confirmed by identification band. FALL SCREENING: Has the patient had 2 falls in the last year or 1 fall with injury or currently using an Ambulatory Assistive Device (Walker, Cane, Wheelchair, Crutches, etc.)? Inpatient: Screened on floor PATIENT GENDER DATA: Male PATIENT RELEVANT IMPLANT DATA REVIEWED: Not Applicable PATIENT PRESENTS WITH AN IMPLANTABLE OR ATTACHED GEOPHYSICAL LABORATORY DIRECTOR: No RADIOLOGY DEPARTMENT: General X-ray: Exam(s) Completed: Chest X-Ray PERIPHERAL IV DATA: Not applicable SIGNED BY: RT Raffy(R) October 25, 2023 4:59 AM [facility] CASE MGT INIT ASSESon 2023 CASE MGT INIT [facility] HNO ID: [id number] Author: BUTCH WETZEL RN Service: ? Author Type: Registered Nurse Type: Care Mgt Initial Assessment Filed: 10/25/2023 09:57 Note Text: CARE MANAGEMENT: ASSESSMENT AND DISCHARGE PLAN SERVICE DATE: October 25, 2023 SERVICE TIME: 9:55 AM PCP: Mounika Brooke MD, MD Primary Contact: Extended Emergency Contact Information Primary Emergency Contact: DAVIN ESCOBAR Mobile Relation: Daughter Secondary Emergency Contact: Micah Lora Relation: Son Admission Status: Inpatient Insurance Provider: [facility] [facility] Discharge Planning requested by: Per Department Practice Potential Transition Plans To Be Determined Advance Directives Current Advance Directive: None Nail Maker Attempted to Assist with AD Completion: Yes Action: Education Provided Current Living Arrangements and Support Lives with: Alone Type of Residence: Private Residence (Apartment or Condo) Support: Family members How do you manage to accomplish the following: Independent: Ambulation;Medication Management;Bathe/Show er;Transportation to appointments/communit y;Dress;Meals/Meal Prep;Going to the bathroom Current Services/Equipment Current Post-Acute Service(s): DME Current DME Type: Walker, Cane Discharge Planning Patient Goal(s): General wellness Are you interested in bedside delivery of your medications? Yes Discharge Planning Participant(s): Patient Patient/Family Comments: Caregiver Assessment: Caregiver is ready, willing and able to meet the patient's needs as recommended by the inter-professional team: Other: See Comment (TBD) Transport at Discharge: Transportation Arrangements: To Be Determined Needs Prior to Discharge: Needs Prior to Discharge: To Be Determined Post-Acute Discharge Plan: Patient admit d/t fluid overload, IV lasix started Patient baseline home O2 @4L continuous, unsure of provider DC needs TBD SIGNATURE: Butch Wetzel RN PATIENT NAME: Nicole Lora DATE: October 25, 2023 TIME: 9:54 AM CONTACT #: [phone] Normal [facility] CBC W Auto Differential pane l (Bld)on 10-25-2023 Basophils (Bld) [#/Vol] 0.03 10*3/uL Normal <0.11 [facility] Comment on above: Order Comment: Speci men Type: BLOOD SPECIMEN Ordering Facility: [facility] Address: [address] [place] [address] Performed By: #### 1 9123-9, 84488-7 #### [facility] CLIA [id number] [address] [place] [address] [place] Basophils/100 WBC (Bld) 0.4 % Normal [facility] Comment on above: Order Comment: Speci men Type: BLOOD SPECIMEN Ordering Facility: [facility] Address: [address] [place] [address] Performed By: #### 1 239, 24385-8 #### [facility] CLIA [id number] [address] [place] [address] [place] Differential cell count method Nom (Bld) Auto Normal [facility] Comment on above: Order Comment: Speci men Type: BLOOD SPECIMEN Ordering Facility: [facility] Address: [address] [place] [address] Performed By: #### 1 91239, #### [facility] CLIA [id number] [address] [place] [address] [place] Eosinophils (Bld) [#/Vol] 0.22 10*3/uL Normal <0.46 [facility] Comment on above: Order Comment: Speci men Type: BLOOD SPECIMEN Ordering Facility: [facility] Address: [address] [place] [address] Performed By: #### 1 91239, #### [facility] CLIA [id number] [address] [place] [address] [place] Eosinophils/100 WBC (Bld) 2.9 % Normal [facility] Comment on above: Order Comment: Speci men Type: BLOOD SPECIMEN Ordering Facility: [facility] Address: [address] [place] [address] Performed By: #### 1 9023-9, 16348-5 #### [facility] CLIA [id number] [address] [place] [address] [place] Erythrocyte distribution width (RBC) [Ratio] 16.5 % High 11.5-15.0 [facility] Comment on above: Order Comment: Speci men Type: BLOOD SPECIMEN Ordering Facility: [facility] Address: [address] [place] [address] Performed By: #### 1 23, #### [facility] CLIA [id number] [address] [place] [address] [place] Hematocrit (Bld) [Volume fraction] 41.0 % Normal 39.0-51.0 [facility] Comment on above: Order Comment: Speci men Type: BLOOD SPECIMEN Ordering Facility: [facility] Address: [address] [place] [address] Performed By: #### 1 9123-04, #### [facility] CLIA [id number] [address] [place] [address] [place] Hemoglobin (Bld) [Mass/Vol] 12.1 g/dL Low 13.0-17.0 [facility] Comment on above: Order Comment: Speci men Type: BLOOD SPECIMEN Ordering Facility: [facility] Address: [address] [place] [address] Performed By: #### 1 9123-04, #### [facility] CLIA [id number] [address] [place] [address] [place] Immature granulocytes (Bld) [#/Vol] 0.04 10*3/uL Normal <0.10 [facility] Comment on above: Order Comment: Speci men Type: BLOOD SPECIMEN Ordering Facility: [facility] Address: [address] [place] [address] Performed By: #### 1 9123-04, #### [facility] CLIA [id number] [address] [place] [address] [place] Immature granulocytes/100 WBC (Bld) 0.5 % Normal [facility] Comment on above: Order Comment: Speci men Type: BLOOD SPECIMEN Ordering Facility: [facility] Address: [address] [place] [address] Performed By: #### 1 23, 93658-5 #### [facility] CLIA [id number] [address] [place] [address] [place] Lymphocytes (Bld) [#/Vol] 0.80 10*3/uL Low 1.00-4.00 [facility] Comment on above: Order Comment: Speci men Type: BLOOD SPECIMEN Ordering Facility: [facility] Address: [address] [place] [address] Performed By: #### 1 2923-9, #### [facility] CLIA [id number] [address] [place] [address] [place] Lymphocytes/100 WBC (Bld) 10.6 % Normal [facility] Comment on above: Order Comment: Speci men Type: BLOOD SPECIMEN Ordering Facility: [facility] Address: [address] [place] [address] Performed By: #### 1 65239, #### [facility] CLIA [id number] [address] [place] [address] [place] MCH (RBC) [Entitic mass] 26.8 pg Normal 26.0-34.0 [facility] Comment on above: Order Comment: Speci men Type: BLOOD SPECIMEN Ordering Facility: [facility] Address: [address] [place] [address] Performed By: #### 1 1123-9, #### [facility] CLIA [id number] [address] [place] [address] [place] MCHC (RBC) [Mass/Vol] 29.5 g/dL Low 30.5-36.0 [facility] Comment on above: Order Comment: Speci men Type: BLOOD SPECIMEN Ordering Facility: [facility] Address: [address] [place] [address] Performed By: #### 1 7223-9, #### [facility] CLIA [id number] [address] [place] [address] [place] MCV (RBC) [Entitic vol] 90.7 fL Normal 80.0-100.0 [facility] Comment on above: Order Comment: Speci men Type: BLOOD SPECIMEN Ordering Facility: [facility] Address: [address] [place] [address] Performed By: #### 1 0065-9, #### [facility] CLIA [id number] [address] [place] [address] [place] Monocytes (Bld) [#/Vol] 0.64 10*3/uL Normal <0.87 [facility] Comment on above: Order Comment: Speci men Type: BLOOD SPECIMEN Ordering Facility: [facility] Address: [address] [place] [address] Performed By: #### 1 23-9, #### [facility] CLIA [id number] [address] [place] [address] [place] Monocytes/100 WBC (Bld) 8.5 % Normal [facility] Comment on above: Order Comment: Speci men Type: BLOOD SPECIMEN Ordering Facility: [facility] Address: [address] [place] [address] Performed By: #### 1 91239, #### [facility] CLIA [id number] [address] [place] [address] [place] Neutrophils (Bld) [#/Vol] 5.80 10*3/uL Normal 1.45-7.50 [facility] Comment on above: Order Comment: Speci men Type: BLOOD SPECIMEN Ordering Facility: [facility] Address: [address] [place] [address] Performed By: #### 1 9123-9, #### [facility] CLIA [id number] [address] [place] [address] [place] Neutrophils/100 WBC (Bld) 77.1 % Normal [facility] Comment on above: Order Comment: Speci men Type: BLOOD SPECIMEN Ordering Facility: [facility] Address: [address] [place] [address] Performed By: #### 1 9123-9, 76426-9 #### [facility] CLIA [id number] [address] [place] [address] [place] Nucleated RBC (Bld) [#/Vol] 10*3/uL Normal <0.01 [facility] Comment on above: Order Comment: Speci men Type: BLOOD SPECIMEN Ordering Facility: [facility] Address: [address] [place] [address] Performed By: #### 1 9123-9, 75862-3 #### [facility] CLIA [id number] [address] [place] [address] [place] Nucleated RBC/100 WBC (Bld) [Ratio] 0.0 /100 WBC Normal [facility] Comment on above: Order Comment: Speci men Type: BLOOD SPECIMEN Ordering Facility: [facility] Address: [address] [place] [address] Performed By: #### 1 9123-9, 16646-5 #### [facility] CLIA [id number] [address] [place] [address] [place] Platelet mean volume (Bld) [Entitic vol] 8.6 fL Low 9.0-12.7 [facility] Comment on above: Order Comment: Speci men Type: BLOOD SPECIMEN Ordering Facility: [facility] Address: [address] [place] [address] Performed By: #### 1 9123-9, 53836-7 #### [facility] CLIA [id number] [address] [place] [address] [place] Platelets (Bld) [#/Vol] 235 10*3/uL Normal 150-400 [facility] Comment on above: Order Comment: Speci men Type: BLOOD SPECIMEN Ordering Facility: [facility] Address: [address] [place] [address] Performed By: #### 1 9123-9, 89857-3 #### [facility] CLIA [id number] [address] [place] [address] [place] RBC (Bld) [#/Vol] 4.52 10*6/uL Normal 4.20-6.00 [facility] Comment on above: Order Comment: Speci men Type: BLOOD SPECIMEN Ordering Facility: [facility] Address: [address] [place] [address] Performed By: #### 1 9123-9, 04184-6 #### [facility] CLIA [id number] [address] [place] [address] [place] WBC (Bld) [#/Vol] 7.53 10*3/uL Normal 3.70-11.00 [facility] Comment on above: Order Comment: Speci men Type: BLOOD SPECIMEN Ordering Facility: [facility] Address: [address] [place] [address] Performed By: #### 1 9123-9, 15291-7 #### [facility] CLIA [id number] [facility] ECHOon 10-25-2023 Echocardiography Echocardiography Report: Transthoracic Echo [facility] Date of service: 10/25/2023 2:47:07 PM Ordering physician: JUDI LOERA Indication: Chest Pain Symptom(s): Shortness of breath and Palpitations Technologist: Lizet Chacon [facility] Interpreting physician: Moisés Hassan MD PATIENT: Name: MR. NICOLE LORA : 1960 Age: 63 years Gender: M Primary rhythm: sinus. Height: 180.30 cm BSA: 2.72 m Weight: 147.60 kg BMI: 45.4 kg/m Heart rate 71 bpm Blood pressure 114/57 mmHg Technically difficult exam due to body habitus and suboptimal positioning. Color Doppler was utilized to interrogate the cardiac valves assessed and spectral Doppler was utilized to determine the flow velocities and pressure gradients reported in this exam. MEASUREMENTS: Value Indexed Normal Max aortic dimension 3.3 cm Ao < 3.8 Left atrial volume 66 ml (4ch A-L) 24 ml/m Keanu <= 34 LV ID (diastole) 4.0 cm (2D) 1.47 cm/m LV ID (systole) 2.8 cm (2D) 1.03 cm/m IVS, leaflet tips 1.4 cm (2D) Posterior wall thickness 1.3 cm (2D) Left ventricular mass 198 g (2D) 73 g/m Ejection Fraction 55 % (visual est.) EF > 52 FINDINGS: LEFT VENTRICLE The left ventricle is normal in size. Left ventricular systolic function is normal. Normal left ventricular diastolic function. Mitral annular lateral E/e': 8.6. Mitral annular septal E/e': 12.1. Definity contrast used for endocardial border detection. Wall Motion: All scored segments are normal. RIGHT VENTRICLE The right ventricle is normal in size. Right ventricular systolic function is normal. RV systolic tissue Doppler velocity is 13.7 cm/s. Estimated right ventricular systolic pressure is not reported due to an insufficient tricuspid regurgitation signal. Estimated right atrial pressure is not included as the IVC was not seen. LEFT ATRIUM The left atrial cavity is normal in size. RIGHT ATRIUM The right atrial cavity is normal in size. MITRAL VALVE The mitral valve leaflets are structurally normal. There is no mitral stenosis. There is no mitral valve regurgitation. The pressure half time is 52 msec. The peak mitral E/A ratio is 1.17. The average mitral E/e' ratio is 10.3. The mitral flow deceleration time is 180 msec. TRICUSPID VALVE The tricuspid valve leaflets are structurally normal. There is trace tricuspid valve regurgitation. AORTIC VALVE The aortic valve was not seen or not interrogated. There is no aortic valve stenosis. There is trace aortic valve regurgitation. The peak gradient is 10 mmHg (peak velocity = 159.0 cm/s). PULMONIC VALVE The pulmonic valve was not seen or not interrogated. There is no pulmonic valve regurgitation. AORTA The visualized aorta is normal in size. Measurements - Mid ascending aorta 3.3 cm. PULMONARY ARTERIES The pulmonary arteries are unseen or not interrogated. PERICARDIUM There is no pericardial effusion. CONCLUSIONS: - Exam indication: Chest Pain - Technically difficult study. Limited valvular assessment. - The left ventricle is normal in size. Left ventricular systolic function is normal. EF = 55 5% (visual est.) Definity contrast used for endocardial border detection. Normal left ventricular diastolic function. - The right ventricle is normal in size. Right ventricular systolic function is normal. - There are no significant valvular abnormalities within the limitation of this study. - The patient has not had a prior CC echocardiographic exam for comparison. * * * Final * * * [facility] Image : [id number] micsSISUID Normal [facility] Gas and Carbon monoxide pane l (BldV)on 10-25-2023 Base excess Calc (BldV) [Moles/Vol] 6 mmol/L High 0-2 [facility] Comment on above: Order Comment: Speci men Type: BLOOD SPECIMEN Ordering Facility: [facility] Address: [address] [place] [address] Performed By: #### P TTAC #### [facility] CLIA [id number] [address] [place] [address] [place] Body temperature 98.78 [degF] Normal [facility] Comment on above: Order Comment: Speci men Type: BLOOD SPECIMEN Ordering Facility: [facility] Address: [address] [place] [address] Performed By: #### P TTAC #### [facility] CLIA [id number] [address] [place] [address] [place] Calcium.ionized (Bld) [Mass/Vol] 1.15 mmol/L Normal 1.08-1.30 [facility] Comment on above: Order Comment: Speci men Type: BLOOD SPECIMEN Ordering Facility: [facility] Address: [address] [place] [address] Performed By: #### P TTAC #### [facility] CLIA [id number] [address] [place] [address] [place] Calcium.ionized adjusted to pH 7.4 (BldA) [Moles/Vol] 1.12 mmol/L Normal 1.08-1.30 [facility] Comment on above: Order Comment: Speci men Type: BLOOD SPECIMEN Ordering Facility: [facility] Address: [address] [place] [address] Performed By: #### P TTAC #### [facility] CLIA [id number] [address] [place] [address] [place] Carboxyhemoglobin (BldV) [Mass fraction] 2.7 % High 0.0-2.0 [facility] Comment on above: Order Comment: Speci men Type: BLOOD SPECIMEN Ordering Facility: [facility] Address: [address] [place] [address] Result Comment: Carb oxyhemoglobin Reference Range for Smokers: 2.0-8.0% Performed By: #### P TTAC #### [facility] CLIA [id number] [address] [place] [address] [place] Chloride [Moles/Vol] 105 mmol/L Normal 97-105 [facility] Comment on above: Order Comment: Speci men Type: BLOOD SPECIMEN Ordering Facility: [facility] Address: [address] [place] [address] Performed By: #### P TTAC #### [facility] CLIA [id number] [address] [place] [address] [place] CO2 (BldV) [Partial pressure] 61 mm[Hg] High 42-55 [facility] Comment on above: Order Comment: Speci men Type: BLOOD SPECIMEN Ordering Facility: [facility] Address: [address] [place] [address] Performed By: #### P TTAC #### [facility] CLIA [id number] [address] [place] [address] [place] CO2 adjusted to patient's actual temperature (BldV) [Partial pressure] Normal [facility] Comment on above: Order Comment: Speci men Type: BLOOD SPECIMEN Ordering Facility: [facility] Address: [address] [place] [address] Performed By: #### P TTAC #### [facility] CLIA [id number] [address] [place] [address] [place] FIO2 45 % Normal [facility] Comment on above: Order Comment: Speci men Type: BLOOD SPECIMEN Ordering Facility: [facility] Address: [address] [place] [address] Performed By: #### P TTAC #### [facility] CLIA [id number] [address] [place] [address] [place] Glucose [Mass/Vol] 152 mg/dL High 60-105 [facility] Comment on above: Order Comment: Speci men Type: BLOOD SPECIMEN Ordering Facility: [facility] Address: [address] [place] [address] Performed By: #### P TTAC #### [facility] CLIA [id number] [address] [place] [address] [place] HCO3 (Bld) [Moles/Vol] 33 mmol/L High 24-28 [facility] Comment on above: Order Comment: Speci men Type: BLOOD SPECIMEN Ordering Facility: [facility] Address: [address] [place] [address] Performed By: #### P TTAC #### [facility] CLIA [id number] [address] [place] [address] [place] Hematocrit (Bld) [Volume fraction] 38.3 % Low 39.0-51.0 [facility] Comment on above: Order Comment: Speci men Type: BLOOD SPECIMEN Ordering Facility: [facility] Address: [address] [place] [address] Performed By: #### P TTAC #### [facility] CLIA [id number] [address] [place] [address] [place] Hemoglobin (Bld) [Mass/Vol] 12.4 g/dL Low 13.0-17.0 [facility] Comment on above: Order Comment: Speci men Type: BLOOD SPECIMEN Ordering Facility: [facility] Address: [address] [place] [address] Performed By: #### P TTAC #### [facility] CLIA [id number] [address] [place] [address] [place] Lactate [Moles/Vol] 0.9 mmol/L Normal 0.5-2.2 [facility] Comment on above: Order Comment: Speci men Type: BLOOD SPECIMEN Ordering Facility: [facility] Address: [address] [place] [address] Performed By: #### P TTAC #### [facility] CLIA [id number] [address] [place] [address] [place] Methemoglobin (Bld) [Mass fraction] 1.2 % Normal 0.0-1.5 [facility] Comment on above: Order Comment: Speci men Type: BLOOD SPECIMEN Ordering Facility: [facility] Address: [address] [place] [address] Performed By: #### P TTAC #### [facility] CLIA [id number] [address] [place] [address] [place] O2 THERAPY Positive Normal [facility] Comment on above: Order Comment: Speci men Type: BLOOD SPECIMEN Ordering Facility: [facility] Address: [address] [place] [address] Performed By: #### P TTAC #### [facility] CLIA [id number] [address] [place] [address] [place] Oxygen (BldV) [Partial pressure] 107 mm[Hg] High 35-45 [facility] Comment on above: Order Comment: Speci men Type: BLOOD SPECIMEN Ordering Facility: [facility] Address: [address] [place] [address] Performed By: #### P TTAC #### [facility] CLIA [id number] [address] [place] [address] [place] Oxygen adjusted to patient's actual temperature (BldV) [Partial pressure] Normal [facility] Comment on above: Order Comment: Speci men Type: BLOOD SPECIMEN Ordering Facility: [facility] Address: [address] [place] [address] Performed By: #### P TTAC #### [facility] CLIA [id number] [address] [place] [address] [place] Oxygen saturation in Venous blood 98 % High 60-85 [facility] Comment on above: Order Comment: Speci men Type: BLOOD SPECIMEN Ordering Facility: [facility] Address: [address] [place] [address] Performed By: #### P TTAC #### [facility] CLIA [id number] [address] [place] [address] [place] Oxyhemoglobin (BldV) [Mass fraction] 94 % High 60-85 [facility] Comment on above: Order Comment: Speci men Type: BLOOD SPECIMEN Ordering Facility: [facility] Address: [address] [place] [address] Performed By: #### P TTAC #### [facility] CLIA [id number] [address] [place] [address] [place] pH (BldV) 7.35 [pH] Normal 7.32-7.42 [facility] Comment on above: Order Comment: Speci men Type: BLOOD SPECIMEN Ordering Facility: [facility] Address: [address] [place] [address] Performed By: #### P TTAC #### [facility] CLIA [id number] [address] [place] [address] [place] pH adjusted to patient's actual temperature (BldV) Normal [facility] Comment on above: Order Comment: [place] Type: BLOOD SPECIMEN Ordering Facility: [facility] Address: [address] [place] [address] Performed By: #### P TTAC #### [facility] CLIA [id number] [address] [place] [address] [place] Potassium [Moles/Vol] 4.1 mmol/L Normal 3.5-5.0 [facility] Comment on above: Order Comment: Kentoni men Type: BLOOD SPECIMEN Ordering Facility: [facility] Address: [address] [place] [address] Performed By: #### P TTAC #### [facility] CLIA [id number] [address] [place] [address] [place] Sodium [Moles/Vol] 140 mmol/L Normal 136-144 [facility] Comment on above: Order Comment: [place] Type: BLOOD SPECIMEN Ordering Facility: [facility] Address: [address] [place] [address] Performed By: #### P TTAC #### [facility] CLIA [id number] [address] [place] [address] [place] HISTORY PHYSICALon HISTORY PHYSICAL HNO ID: [id number] Author: ANUPAMA ALFRED MD Service: Critical Care Author Type: Nurse Practitioner Type: H&P Filed: 10/25/2023 03:12 Note Text: Attestation signed by Anupama Alfred MD at 10/25/2023 3:12 AM [facility] ST[facility]FF PHYSICIAN NOTE OF PERSONAL INVOLVEMENT IN CARE I have reviewed the progress note obtained and documented by the nurse practitioner and I personally participated in the dacosta components. I have discussed the case and management of the patient's care. The following comments revise or confirm relevant dacosta components of the note and have added additional documentation as needed. HPI: 63 year old male w/ PMH as below who p/w c/o respiratory failure admitted to ICU for further evaluation and management. Interval Events: Admission PAST MEDICAL HISTORY PAST MEDICAL HISTORY Diagnosis Date Chronic respiratory failure (HCC) CKD (chronic kidney disease) HTN (hypertension) IDDM (insulin dependent diabetes mellitus) MRSA infection Obesity S/P amputation PAST SURGICAL HISTORY PAST SURGICAL HISTORY Procedure Laterality Date AMPUTAT OF TOEANDMETATARSAL FAMILY HISTORY No family history on file. No current facility-administered medications on file prior to encounter. Current Outpatient Medications on File Prior to Encounter Medication Sig atorvastatin (LIPITOR) 40 mg tablet budesonide-formoterol (SYMBICORT) 160-4.5 mcg/actuation inhaler Inhale 2 Puffs as instructed. gabapentin (NEURONTIN) 600 mg tablet Take 600 mg by mouth three times a day. guaiFENesin (MUCINEX) 600 mg 12 hr tablet Take 1,200 mg by mouth. hydrALAZINE (APRESOLINE) 25 mg tablet TAKE 3 TABLETS BY MOUTH TWICE DAILY FOR 60 DAYS JENTADUETO 2.5-1,000 mg tab torsemide (DEMADEX) 20 mg tablet Take 40 mg by mouth. pantoprazole DR (PROTONIX) 40 mg tablet Take 40 mg by mouth once daily. ASPIRIN (ASPIR-81 ORAL) Take 81 mg by mouth once daily. FIASP FLEXTOUCH U-100 INSULIN 100 unit/mL (3 mL) pen inject 15-18-20 PLUS ISS #2 (EXPECT DAILY DOSE OF 80 UNITS) rOPINIRole (REQUIP) 1 mg tablet Take 1 mg by mouth daily at bedtime. tamsulosin (FLOMAX) 0.4 mg Take 1 capsule by mouth every afternoon. insulin regular human (HUMULIN R) 100 unit/mL injection Inject 15 Units subcutaneously three times daily before meals. INSULIN GLARGINE,HUM.REC.ANLO G (LANTUS SOLOSTAR SUBCUTANEOUS) Inject 40 Units subcutaneously daily at bedtime. sitaGLIPtin-metFORMIN (AUGUMET) 50-1,000 mg per tablet Take 1 tablet by mouth twice daily with meals. Intake/Output Summary (Last 24 hours) at 10/24/2023 0659 Last data filed at 10/24/2023 0236 Gross per 24 hour Intake 20 ml Output 2650 ml Net -2630 ml Physical Exam Impression/Plan: Acute hypoxic hypercarbic respiratory failure- likely mixed 2/2 CHF + TC/OHS, NIV ON for now and PRN Suspected CHF- continue diuresis goal -1L today, fu formal echo TC hx reportedly- continue NIV QHS TIIDM- SSI, goal BG 140-180 ICU ppx Portions of this note including HPI, ROS, impression/plan, and examination may have been copied forward as to provide important historical information essential in contributing to medical decision making. Documentation has been reviewed and edited as necessary to support clinical decision making for today's visit and to reflect my own independent evaluation of this patient on 10/25/2023 This patient has a high probability of sudden, clinically significant deterioration, which requires the highest level of physician preparedness to intervene urgently. I managed/supervised life or organ supporting interventions that required frequent physician assessment. I devoted my full attention to the direct care of this patient for the amount of time indicated below. Time I spent with family or surrogate(s) is included only if the patient was incapable of providing the necessary information or participating in medical decision making. Time devoted to teaching and to any procedures I billed separately is not included. Critical Care Documentation: The patient has the following organ/system impairment(s): As per impression and plan above Time spent providing critical care services: 40 minutes. SIGNATURE: Anupama Alfred MD [facility] SERVICE DATE: 10/25/2023 SERVICE TIME: 2:57 AM Admission Date: 10/23/2023 Subjective HPI: This is a 63 year old male with PMHx significant for CKD stage III, chronic respiratory failure (wears 4L O2 at baseline), obesity, DM type 2, and left forefoot amputation who initially presented on 10/23 for worsening LE edema, SOB, and a weight gain of about 10 lbs over the last week likely in setting of CHF exacerbation. Patient has been being treated with diuresis for volume overload. Earlier in PM, floor RN notified general medicine of [place] (more content not included)... Normal [facility] Lipid 1996 panelon 4 Cholesterol [Mass/Vol] 104 mg/dL Normal <200 [facility] Comment on above: Order Comment: [place] Type: BLOOD SPECIMEN Ordering Facility: [facility] Address: [address] [place] [address] Result Comment: <200 mg/dL, Desirable 200-239 mg/dL, Borderline high >239 mg/dL, High Performed By: #### 1 9123-9, 70621-8 #### [facility] CLIA [id number] [address] [place] [address] [place] [facility] Cholesterol in HDL [Mass/Vol] 61 mg/dL Normal >39 [facility] Comment on above: Order Comment: [place] Type: BLOOD SPECIMEN Ordering Facility: [facility] Address: [address] [place] [address] Result Comment: 40-5 9 mg/dL, Acceptable >59 mg/dL, High: Negative risk factor for coronary heart disease <40 mg/dL, Low: Positive risk factor for coronary heart disease Performed By: #### 1 9123-9, 60141-3 #### [facility] CLIA [id number] [address] [place] [address] [place] Cholesterol in LDL [Mass/Vol] 33 mg/dL Normal <100 [facility] Comment on above: Order Comment: [place] Type: BLOOD SPECIMEN Ordering Facility: [facility] Address: [address] [place] [address] Result Comment: <100 mg/dL, Optimal 100-129 mg/dL, Near optimal/above optimal 130-159 mg/dL, Borderline high 160-189 mg/dL, High >189 mg/dL, Very high Secondary prevention optimal LDL Cholesterol levels are recommended to be < 70 mg/dL Performed By: #### 1 91239, 23207-7 #### [facility] CLIA [id number] [address] [place] [address] [place] Cholesterol in LDL/Cholesterol in HDL [Mass ratio] 0.54 {ratio} Normal <2.54 [facility] Comment on above: Order Comment: [place] Type: BLOOD SPECIMEN Ordering Facility: [facility] Address: [facility] [place] [address] Result Comment: Shayna huertas: 1. National Cholesterol Education Program ATP III Guideline At-A-Glance Quick Desk Reference: National Heart, Lung, and Blood White Owl. National Institutes of Health. 2001: NIH Publication No. 01-3305. 2. An International Atherosclerosis Society position paper: global recommendations for the management of dyslipidemia: executive summary, Atherosclerosis. 2014: 232(2):410-413. Performed By: #### 1 9123-9, #### [facility] CLIA [id number] [address] [place] [address] Cholesterol in VLDL [Mass/Vol] 10 mg/dL Normal <30 [facility] Comment on above: Order Comment: Madonna chapis Type: BLOOD SPECIMEN Ordering Facility: [facility] Address: [address] [place] [address] Performed By: #### 1 9123-9, #### [facility] CLIA [id number] [address] [place] [address] [place] Cholesterol non HDL [Mass/Vol] 43 mg/dL Normal <130 [facility] Comment on above: Order Comment: [place] Type: BLOOD SPECIMEN Ordering Facility: [facility] Address: [address] [place] [address] Result Comment: <130 mg/dL, Optimal 130-159 mg/dL, Near optimal/above optimal 160-189 mg/dL, Borderline high 190-219 mg/dL, High >219 mg/dL, Very high Secondary prevention optimal non HDL Cholesterol levels are recommended to be <100 mg/dL Performed By: #### 1 9123-9, 49622-7 #### [facility] CLIA [id number] [address] [place] [address] [facility] [place] Cholesterol.total/Ch olesterol in HDL [Mass ratio] 1.70 {ratio} Normal <5.10 [facility] Comment on above: Order Comment: Speci men Type: BLOOD SPECIMEN Ordering Facility: [facility] Address: [address] [place] [address] Performed By: #### 1 9123-9, 12325-9 #### [facility] CLIA [id number] [address] [place] [address] [place] [facility] FASTING TIME 12 hrs Normal [facility] Comment on above: Order Comment: Speci men Type: BLOOD SPECIMEN Ordering Facility: [facility] Address: [address] [place] [address] Performed By: #### 1 9123-9, 07549-9 #### [facility] CLIA [id number] [address] [place] [address] [place] Triglyceride [Mass/Vol] 52 mg/dL Normal <150 [facility] Comment on above: Order Comment: Speci men Type: BLOOD SPECIMEN Ordering Facility: [facility] Address: [address] [place] [address] Result Comment: <150 mg/dL, Normal 150-199 mg/dL, Borderline high 200-499 mg/dL, High >499 mg/dL, Very high Performed By: #### 1 9123-9, 61602-8 #### [facility] CLIA [id number] [address] [place] [address] [place] Magnesium SerPl-mCncon 10-24 Magnesium [Mass/Vol] 2.0 mg/dL Normal 1.7-2.3 [facility] Comment on above: Order Comment: Speci men Type: BLOOD SPECIMEN Ordering Facility: [facility] Address: [address] [place] [address] Performed By: #### 1 9123-9, 72529-4 #### [facility] CLIA [id number] [address] [place] [address] [place] Renal function 2000 panelon 10-25-2023 Albumin [Mass/Vol] 3.4 g/dL Low 3.9-4.9 [facility] Comment on above: Order Comment: Speci men Type: BLOOD SPECIMEN Ordering Facility: [facility] Address: [address] [place] [address] Performed By: #### 1 0423-9, 42829-3 #### [facility] CLIA [id number] [address] [place] [address] [place] Anion gap [Moles/Vol] 10 mmol/L Normal 9-18 [facility] Comment on above: Order Comment: Speci men Type: BLOOD SPECIMEN Ordering Facility: [facility] Address: [address] [place] [address] Performed By: #### 1 9123-9, 87231-6 #### [facility] CLIA [id number] [address] [place] [address] [place] Calcium [Mass/Vol] 9.1 mg/dL Normal 8.5-10.2 [facility] Comment on above: Order Comment: Speci men Type: BLOOD SPECIMEN Ordering Facility: [facility] Address: [address] [place] [address] Performed By: #### 1 239, #### [facility] CLIA [id number] [address] [place] [address] [place] Chloride [Moles/Vol] 102 mmol/L Normal 97-105 [facility] Comment on above: Order Comment: Speci men Type: BLOOD SPECIMEN Ordering Facility: [facility] Address: [address] [place] [address] Performed By: #### 1 90239, #### [facility] CLIA [id number] [address] [place] [address] [place] CO2 [Moles/Vol] 31 mmol/L High 22-30 [facility] Comment on above: Order Comment: Speci men Type: BLOOD SPECIMEN Ordering Facility: [facility] Address: [address] [place] [address] Performed By: #### 1 3223-9, 57332-6 #### [facility] CLIA [id number] [address] [place] [address] [place] Creatinine [Mass/Vol] 1.89 mg/dL High 0.73-1.22 [facility] Comment on above: Order Comment: [place] Type: BLOOD SPECIMEN Ordering Facility: [facility] Address: [address] [facility] [place] [place] [address] Performed By: #### 1 9123-9, 23508-5 #### [facility] CLIA [id number] [address] [place] [address] [place] Creatinine and Glomerular filtration rate.predicted panel (S/P/Bld) 39 mL/min/1.73m??? Low >=60 [facility] Comment on above: Order Comment: [place] Type: BLOOD SPECIMEN Ordering Facility: [facility] Address: [address] [place] [address] Result Comment: Meredith mated Glomerular Filtration Rate (eGFR) is calculated using the 2020 CKD-EPI creatinine equation. This equation utilizes serum creatinine, sex, and age as parameters. The creatinine assay has traceable calibration to isotope dilution-mass spectrometry. Refer to KDIGO guidelines for clinical interpretation. In patients with unstable renal function, e.g. those with acute kidney injury, the eGFR may not accurately reflect actual GFR. Performed By: #### 1 9123-9, 20184-6 #### [facility] CLIA [id number] [address] [place] [address] [place] Glucose [Mass/Vol] 149 mg/dL High 74-99 [facility] Comment on above: Order Comment: [place] Type: BLOOD SPECIMEN Ordering Facility: [facility] Address: [address] [place] [address] Result Comment: The [place] [employer] (ADA) provides guidance for cutoff [...] Standards of Medical Care in Diabetes 2016, [place] [employer]. Diabetes Care. 2016.39(Suppl 1). Performed By: #### 1 9123-9, 01410-0 #### [facility] CLIA [id number] [address] [place] [address] [place] Phosphate [Mass/Vol] 4.4 mg/dL Normal 2.7-4.8 [facility] Comment on above: Order Comment: Speci men Type: BLOOD SPECIMEN Ordering Facility: [facility] Address: [address] [place] [address] Performed By: #### 1 9123-9, 32124-0 #### [facility] CLIA [id number] [address] [place] [address] [place] Potassium [Moles/Vol] 4.3 mmol/L Normal 3.7-5.1 [facility] Comment on above: Order Comment: Speci men Type: BLOOD SPECIMEN Ordering Facility: [facility] Address: [address] [place] [address] Performed By: #### 1 9123-9, 95098-8 #### [facility] CLIA [id number] [address] [place] [address] [place] Sodium [Moles/Vol] 143 mmol/L Normal 136-144 [facility] Comment on above: Order Comment: Speci men Type: BLOOD SPECIMEN Ordering Facility: [facility] Address: [address] [place] [address] Performed By: #### 1 9123-9, 76178-1 #### [facility] CLIA [id number] [address] [place] [address] [place] Urea nitrogen [Mass/Vol] 54 mg/dL High 9-24 [facility] Comment on above: Order Comment: Speci men Type: BLOOD SPECIMEN Ordering Facility: [facility] Address: [address] [place] [address] Performed By: #### 1 9123-9, 80959-8 #### [facility] CLIA [id number] [address] [place] [address] [place] STAPH AUREUS PCRon 4 S. aureus and MRSA panel ERIBERTO+probe (Nose) Normal Negative [facility] Comment on above: Order Comment: Speci men Type: SWAB OF INTERNAL NOSEOrdering Facility: [facility] Address: [address] [place] [address] Result Comment: Nega tive for Staphylococcus aureus by PCR. Negative for MRSA by PCR Performed By: #### S APCR ####[facility] LABCLIA [id number] [address] [id number] [address] [place] XR CHEST 1V FRONTALon 2023 XR CHEST 1V FRONTAL * * *Final Report* * * DATE OF EXAM: Oct 25 2023 4:58AM FVX [id number] - XR CHEST 1V FRONTAL / PROCEDURE REASON: Hypoxemia * * * * Physician Interpretation * * * * EXAMINATION: CHEST RADIOGRAPH (SINGLE VIEW AP OR PA) CLINICAL HISTORY: Hypoxemia MQ: XC1_5 Comparison: 10/23/2023 RESULT: Lines, tubes, and devices: None. Lungs and pleura: There is interstitial prominence bilaterally. There are bibasilar opacities left greater than right. There is no apical pneumothorax. There is a questionable small left pleural effusion Cardiomediastinal silhouette: Stable cardiomediastinal silhouette. Other: . IMPRESSION: Bilateral interstitial prominence, bibasilar opacities left greater than right and a questionable small left pleural effusion demonstrating slight interval progression. Crab Steamer: SAM Transcribe Date/Time: Oct 25 2023 7:29A Dictated by : KASHIF PIERSON MD This examination was interpreted and the report reviewed and electronically signed by: KASHIF PIERSON MD on Oct 25 2023 7:30AM EST [id number] Normal [facility] ALLIED HEALTHon 10-24-2023 ALLIED HEALTH HNO ID: [id number] Author: ABDIFATAH PAGE RDMS Service: Radiology Author Type: Technologist Type: Allied Health Filed: 10/24/2023 17:00 Note Text: Radiology Service Progress Note PATIENT NAME: Nicole Lora DATE OF SERVICE: October 24, 2023 TIME: 4:59 PM PATIENT IDENTITY VERIFICATION COMPLETED USING TWO (2) IDENTIFIERS: Name and Date of confirmed by patient verbally and Name and Date of confirmed by identification band. FALL SCREENING: Has the patient had 2 falls in the last year or 1 fall with injury or currently using an Ambulatory Assistive Device (Walker, Cane, Wheelchair, Crutches, etc.)? Inpatient: Screened on floor PATIENT GENDER DATA: Male PATIENT RELEVANT IMPLANT DATA REVIEWED: Not Applicable PATIENT PRESENTS WITH AN IMPLANTABLE OR ATTACHED GEOPHYSICAL LABORATORY DIRECTOR: No RADIOLOGY DEPARTMENT: Ultrasound PERIPHERAL IV DATA: Not applicable SIGNED BY: Abdifatah Page RDMS October 24, 2023 4:59 PM Normal [facility] ARTERIAL BLOOD GASESon 10-23 Base excess Calc (Bld) [Moles/Vol] 6 mmol/L High 0-2 [facility] Comment on above: Order Comment: [place] Type: BLOOD SPECIMEN Ordering Facility: [facility] Address: [address] [place] [address] Performed By: #### 1 9123-9, 39595-7 #### [facility] CLIA [id number] [address] [place] [address] [place] Body temperature 98.6 [degF] Normal [facility] Comment on above: Order Comment: [place] Type: BLOOD SPECIMEN Ordering Facility: [facility] Address: [address] [place] [address] Performed By: #### 1 0223-9, 90099-3 #### [facility] CLIA [id number] [address] [place] [address] [place] Calcium.ionized (Bld) [Mass/Vol] 1.23 mmol/L Normal 1.08-1.30 [facility] Comment on above: Order Comment: Kentoni chapis Type: BLOOD SPECIMEN Ordering Facility: [facility] Address: [address] [place] [address] Performed By: #### 1 5323-9, 10919-2 #### [facility] CLIA [id number] [address] [place] [address] [place] Calcium.ionized adjusted to pH 7.4 (BldA) [Moles/Vol] 1.16 mmol/L Normal 1.08-1.30 [facility] Comment on above: Order Comment: [place] Type: BLOOD SPECIMEN Ordering Facility: [facility] Address: [address] [place] [address] Performed By: #### 1 9123-9, 88932-7 #### [facility] CLIA [id number] [address] [place] [address] [place] Carboxyhemoglobin (BldA) [Mass fraction] 1.3 % Normal 0.0-2.0 [facility] Comment on above: Order Comment: Speci men Type: BLOOD SPECIMEN Ordering Facility: [facility] Address: [address] [place] [address] Result Comment: Carb oxyhemoglobin Reference Range for Smokers: 2.0-8.0% Performed By: #### 1 9123-9, 72072-1 #### [facility] CLIA [id number] [address] [place] [address] [place] Chloride [Moles/Vol] 104 mmol/L Normal 97-105 [facility] Comment on above: Order Comment: Speci men Type: BLOOD SPECIMEN Ordering Facility: [facility] Address: [address] [place] [address] Performed By: #### 1 9123-9, 77883-7 #### [facility] CLIA [id number] [address] [place] [address] [place] CO2 (Bld) [Partial pressure] 72 mm Hg High 36-46 [facility] Comment on above: Order Comment: Speci men Type: BLOOD SPECIMEN Ordering Facility: [facility] Address: [address] [place] [address] Performed By: #### 1 9123-9, 29687-3 #### [facility] CLIA [id number] [address] [place] [address] [place] Glucose [Mass/Vol] 88 mg/dL Normal 60-105 [facility] Comment on above: Order Comment: Speci men Type: BLOOD SPECIMEN Ordering Facility: [facility] Address: [address] [place] [address] Performed By: #### 1 9123-9, 04735-9 #### [facility] CLIA [id number] [address] [place] [address] [place] HCO3 (Bld) [Moles/Vol] 34 mmol/L High 22-26 [facility] Comment on above: Order Comment: Speci men Type: BLOOD SPECIMEN Ordering Facility: [facility] Address: [address] [place] [address] Performed By: #### 1 9123-9, 04702-3 #### [facility] CLIA [id number] [address] [place] [address] [place] Hematocrit (Bld) [Volume fraction] 38.4 % Low 39.0-51.0 [facility] Comment on above: Order Comment: Speci men Type: BLOOD SPECIMEN Ordering Facility: [facility] Address: [address] [place] [address] Performed By: #### 1 91239, 28549-8 #### [facility] CLIA [id number] [address] [place] [address] [place] Hemoglobin (Bld) [Mass/Vol] 12.5 g/dL Low 13.0-17.0 [facility] Comment on above: Order Comment: Speci men Type: BLOOD SPECIMEN Ordering Facility: [facility] Address: [address] [place] [address] Performed By: #### 1 9123-9, 50667-4 #### [facility] CLIA [id number] [address] [place] [address] [place] Lactate [Moles/Vol] 0.9 mmol/L Normal 0.5-2.2 [facility] Comment on above: Order Comment: Speci men Type: BLOOD SPECIMEN Ordering Facility: [facility] Address: [address] [place] [address] Performed By: #### 1 9123-9, 82356-1 #### [facility] CLIA [id number] [address] [place] [address] [place] LITERS 4 Liters/min Normal [facility] Comment on above: Order Comment: Speci men Type: BLOOD SPECIMEN Ordering Facility: [facility] Address: [address] [place] [address] Performed By: #### 1 39239, 99115-6 #### [facility] CLIA [id number] [address] [place] [address] [place] Methemoglobin (Bld) [Mass fraction] 1.3 % Normal 0.0-1.5 [facility] Comment on above: Order Comment: Speci men Type: BLOOD SPECIMEN Ordering Facility: [facility] Address: [address] [place] [address] Performed By: #### 1 9123-9, 68000-9 #### [facility] CLIA [id number] [address] [place] [address] [place] O2 THERAPY NC = Nasal Cannula Normal [facility] Comment on above: Order Comment: Speci men Type: BLOOD SPECIMEN Ordering Facility: [facility] Address: [address] [place] [address] Performed By: #### 1 9123-9, #### [facility] CLIA [id number] [address] [place] [address] [place] Oxygen (Bld) [Partial pressure] 73 mm Hg Low 85-95 [facility] Comment on above: Order Comment: Speci men Type: BLOOD SPECIMEN Ordering Facility: [facility] Address: [address] [place] [address] Performed By: #### 1 9123-9, 65970-0 #### [facility] CLIA [id number] [address] [place] [address] [place] Oxyhemoglobin (BldA) [Mass fraction] 91 % Low 95-98 [facility] Comment on above: Order Comment: Speci men Type: BLOOD SPECIMEN Ordering Facility: [facility] Address: [address] [place] [address] Performed By: #### 1 9123-9, 86311-6 #### [facility] CLIA [id number] [address] [place] [address] [place] pH (Bld) 7.30 [pH] Low 7.35-7.45 [facility] Comment on above: Order Comment: Speci men Type: BLOOD SPECIMEN Ordering Facility: [facility] Address: [address] [place] [address] Performed By: #### 1 9123-9, 94661-7 #### [facility] CLIA [id number] [address] [place] [address] [place] Potassium [Moles/Vol] 4.2 mmol/L Normal 3.5-5.0 [facility] Comment on above: Order Comment: Speci men Type: BLOOD SPECIMEN Ordering Facility: [facility] Address: [address] [place] [address] Performed By: #### 1 9123-9, 07194-7 #### [facility] CLIA [id number] [address] [place] [address] [place] Sodium [Moles/Vol] 141 mmol/L Normal 136-144 [facility] Comment on above: Order Comment: Speci men Type: BLOOD SPECIMEN Ordering Facility: [facility] Address: [address] [place] [address] Performed By: #### 1 9123-9, 93147-9 #### [facility] CLIA [id number] [address] [place] [address] [place] Base excess Calc (Bld) [Moles/Vol] 5 mmol/L High 0-2 [facility] Comment on above: Order Comment: Speci men Type: BLOOD SPECIMEN Ordering Facility: [facility] Address: [address] [place] [address] Performed By: #### P TTAC #### [facility] CLIA [id number] [address] [place] [address] [place] Body temperature 98.6 [degF] Normal [facility] Comment on above: Order Comment: Speci men Type: BLOOD SPECIMEN Ordering Facility: [facility] Address: [address] [place] [address] Performed By: #### P TTAC #### [facility] CLIA [id number] [address] [place] [address] [place] Calcium.ionized (Bld) [Mass/Vol] 1.22 mmol/L Normal 1.08-1.30 [facility] Comment on above: Order Comment: Speci men Type: BLOOD SPECIMEN Ordering Facility: [facility] Address: [address] [place] [address] Performed By: #### P TTAC #### [facility] CLIA [id number] [address] [place] [address] [place] Calcium.ionized adjusted to pH 7.4 (BldA) [Moles/Vol] 1.15 mmol/L Normal 1.08-1.30 [facility] Comment on above: Order Comment: Speci men Type: BLOOD SPECIMEN Ordering Facility: [facility] Address: [address] [place] [address] Performed By: #### P TTAC #### [facility] CLIA [id number] [address] [place] [address] [place] Carboxyhemoglobin (BldA) [Mass fraction] 1.7 % Normal 0.0-2.0 [facility] Comment on above: Order Comment: Speci men Type: BLOOD SPECIMEN Ordering Facility: [facility] Address: [address] [place] [address] Result Comment: Carb oxyhemoglobin Reference Range for Smokers: 2.0-8.0% Performed By: #### P TTAC #### [facility] CLIA [id number] [address] [place] [address] [place] Chloride [Moles/Vol] 101 mmol/L Normal 97-105 [facility] Comment on above: Order Comment: Speci men Type: BLOOD SPECIMEN Ordering Facility: [facility] Address: [address] [place] [address] Performed By: #### P TTAC #### [facility] CLIA [id number] [address] [place] [address] [place] CO2 (Bld) [Partial pressure] 70 mm Hg High 36-46 [facility] Comment on above: Order Comment: Speci men Type: BLOOD SPECIMEN Ordering Facility: [facility] Address: [address] [place] [address] Performed By: #### P TTAC #### [facility] CLIA [id number] [address] [place] [address] [place] Glucose [Mass/Vol] 210 mg/dL High 60-105 [facility] Comment on above: Order Comment: Speci men Type: BLOOD SPECIMEN Ordering Facility: [facility] Address: [address] [place] [address] Performed By: #### P TTAC #### [facility] CLIA [id number] [address] [place] [address] [place] HCO3 (Bld) [Moles/Vol] 34 mmol/L High 22-26 [facility] Comment on above: Order Comment: Speci men Type: BLOOD SPECIMEN Ordering Facility: [facility] Address: [address] [place] [address] Performed By: #### P TTAC #### [facility] CLIA [id number] [address] [place] [address] [place] Hematocrit (Bld) [Volume fraction] 37.5 % Low 39.0-51.0 [facility] Comment on above: Order Comment: Speci men Type: BLOOD SPECIMEN Ordering Facility: [facility] Address: [address] [place] [address] Performed By: #### P TTAC #### [facility] CLIA [id number] [address] [place] [address] [place] Hemoglobin (Bld) [Mass/Vol] 12.2 g/dL Low 13.0-17.0 [facility] Comment on above: Order Comment: Speci men Type: BLOOD SPECIMEN Ordering Facility: [facility] Address: [address] [place] [address] Performed By: #### P TTAC #### [facility] CLIA [id number] [address] [place] [address] [place] Lactate [Moles/Vol] 1.4 mmol/L Normal 0.5-2.2 [facility] Comment on above: Order Comment: Speci men Type: BLOOD SPECIMEN Ordering Facility: [facility] Address: [address] [place] [address] Performed By: #### P TTAC #### [facility] CLIA [id number] [address] [place] [address] [place] LITERS 6 Liters/min Normal [facility] Comment on above: Order Comment: Speci men Type: BLOOD SPECIMEN Ordering Facility: [facility] Address: [address] [place] [address] Performed By: #### P TTAC #### [facility] CLIA [id number] [address] [place] [address] [place] Methemoglobin (Bld) [Mass fraction] 0.7 % Normal 0.0-1.5 [facility] Comment on above: Order Comment: Speci men Type: BLOOD SPECIMEN Ordering Facility: [facility] Address: [address] [place] [address] Performed By: #### P TTAC #### [facility] CLIA [id number] [address] [place] [address] [place] O2 THERAPY NC = Nasal Cannula Normal [facility] Comment on above: Order Comment: Speci men Type: BLOOD SPECIMEN Ordering Facility: [facility] Address: [address] [place] [address] Performed By: #### P TTAC #### [facility] [place] [id number] [address] [place] [address] [place] Oxygen (Bld) [Partial pressure] 85 mm Hg Normal 85-95 [facility] Comment on above: Order Comment: Speci men Type: BLOOD SPECIMEN Ordering Facility: [facility] Address: [address] [place] [address] Performed By: #### P TTAC #### [facility] CLIA [id number] [address] [place] [address] [place] Oxyhemoglobin (BldA) [Mass fraction] 94 % Low 95-98 [facility] Comment on above: Order Comment: Speci men Type: BLOOD SPECIMEN Ordering Facility: [facility] Address: [address] [place] [address] Performed By: #### P TTAC #### [facility] CLIA [id number] [address] [place] [address] [place] pH (Bld) 7.30 [pH] Low 7.35-7.45 [facility] Comment on above: Order Comment: Speci men Type: BLOOD SPECIMEN Ordering Facility: [facility] Address: [address] [place] [address] Performed By: #### P TTAC #### [facility] CLIA [id number] [address] [place] [address] [place] Potassium [Moles/Vol] 4.0 mmol/L Normal 3.5-5.0 [facility] Comment on above: Order Comment: Speci men Type: BLOOD SPECIMEN Ordering Facility: [facility] Address: [address] [place] [address] Performed By: #### P TTAC #### [facility] CLIA [id number] [address] [place] [address] [place] Sodium [Moles/Vol] 141 mmol/L Normal 136-144 [facility] Comment on above: Order Comment: Speci men Type: BLOOD SPECIMEN Ordering Facility: [facility] Address: [address] [place] [address] Performed By: #### P TTAC #### [facility] CLIA [id number] [address] [place] [address] [place] Bacteria Ur Culton Bacteria identified Cx Nom (U) ORGANISM ID: 1 >=100,000 CFU/ml Mixed microbiota No further workup. Mixed microbiota can be due to???urine???contamin ation with skin bacteria at time of collection or presence of a long-term urinary catheter. If a new culture is needed, please consider re-education of the patient on proper midstream collection technique or straight catheterization for???urine???collect ion. Normal [facility] Comment on above: Performed By: #### 6 30-4 ####[facility] LAB[facility]IA [id number] [facility] [id number] [address] [place] Basic metabolic 2000 panelon 10-24-2023 Anion gap [Moles/Vol] 11 mmol/L Normal 9-18 [facility] Comment on above: Order Comment: Speci men Type: BLOOD SPECIMEN Ordering Facility: [facility] Address: [address] [place] [address] Performed By: #### 2 4321-2, HSTNT #### [facility] CLIA [id number] [place] [address] [place] Calcium [Mass/Vol] 8.7 mg/dL Normal 8.5-10.2 [facility] Comment on above: Order Comment: Speci men Type: BLOOD SPECIMEN Ordering Facility: [facility] Address: [address] [place] [address] Performed By: #### 2 4321-2, HSTNT #### [facility] CLIA [id number] [address] [place] [address] [place] Chloride [Moles/Vol] 101 mmol/L Normal 97-105 [facility] Comment on above: Order Comment: Speci men Type: BLOOD SPECIMEN Ordering Facility: [facility] Address: [address] [place] [address] Performed By: #### 2 4321-2, HSTNT #### [facility] CLIA [id number] [address] [place] [address] [place] CO2 [Moles/Vol] 30 mmol/L Normal 22-30 [facility] Comment on above: Order Comment: Speci men Type: BLOOD SPECIMEN Ordering Facility: [facility] Address: [address] [place] [address] Performed By: #### 2 4321-2, HSTNT #### [facility] CLIA [id number] [address] [place] [address] [place] Creatinine [Mass/Vol] 1.82 mg/dL High 0.73-1.22 [facility] Comment on above: Order Comment: Speci men Type: BLOOD SPECIMEN Ordering Facility: [facility] Address: [address] [place] [address] Performed By: #### 2 4321-2, HSTNT #### [facility] CLIA [id number] [address] [place] [address] [place] Creatinine and Glomerular filtration rate.predicted panel (S/P/Bld) 41 mL/min/1.73m??? Low >=60 [facility] Comment on above: Order Comment: Speci men Type: BLOOD SPECIMEN Ordering Facility: [facility] Address: [address] [place] [address] Result Comment: Meredith mated Glomerular Filtration Rate (eGFR) is calculated using the 2020 CKD-EPI creatinine equation. This equation utilizes serum creatinine, sex, and age as parameters. The creatinine assay has traceable calibration to isotope dilution-mass spectrometry. Refer to KDIGO guidelines for clinical interpretation. In patients with unstable renal function, e.g. those with acute kidney injury, the eGFR may not accurately reflect actual GFR. Performed By: #### 2 4321-2, HSTNT #### [facility] CLIA [id number] [address] [place] [address] [place] Glucose [Mass/Vol] 229 mg/dL High 74-99 [facility] Comment on above: Order Comment: [place] Type: BLOOD SPECIMEN Ordering Facility: [facility] Address: [address] [place] [address] Result Comment: The [place] [employer] (ADA) provides guidance for cutoff [...] Standards of Medical Care in Diabetes 2016, [place] [employer]. Diabetes Care. 2016.39(Suppl 1). Performed By: #### 2 4321-2, HSTNT #### [facility] CLIA [id number] [address] [place] [address] [place] Potassium [Moles/Vol] 4.2 mmol/L Normal 3.7-5.1 [facility] Comment on above: Order Comment: [place] Type: BLOOD SPECIMEN Ordering Facility: [facility] Address: [address] [place] [address] Performed By: #### 2 4321-2, HSTNT #### [facility] CLIA [id number] [address] [place] [address] [place] Sodium [Moles/Vol] 142 mmol/L Normal 136-144 [facility] Comment on above: Order Comment: Speci men Type: BLOOD SPECIMEN Ordering Facility: [facility] Address: [address] [place] [address] Performed By: #### 2 4321-2, HSTNT #### [facility] CLIA [id number] [place] [address] [place] Urea nitrogen [Mass/Vol] 58 mg/dL High 9-24 [facility] Comment on above: Order Comment: Speci men Type: BLOOD SPECIMEN Ordering Facility: [facility] Address: [address] [place] [address] Performed By: #### 2 4321-2, HSTNT #### [facility] CLIA [id number] [address] [place] [address] [place] CBC panel Auto (Bld)on 10-23 Erythrocyte distribution width (RBC) [Ratio] 16.4 % High 11.5-15.0 [facility] Comment on above: Order Comment: Speci men Type: BLOOD SPECIMEN Ordering Facility: [facility] Address: [address] [place] [address] Performed By: #### 1 9123-9, 32063-5 #### [facility] CLIA [id number] [address] [place] [address] [place] Hematocrit (Bld) [Volume fraction] 41.0 % Normal 39.0-51.0 [facility] Comment on above: Order Comment: Speci men Type: BLOOD SPECIMEN Ordering Facility: [facility] Address: [address] [place] [address] Performed By: #### 1 9123-9, 51380-9 #### [facility] CLIA [id number] [address] [place] [address] [place] Hemoglobin (Bld) [Mass/Vol] 12.4 g/dL Low 13.0-17.0 [facility] Comment on above: Order Comment: Speci men Type: BLOOD SPECIMEN Ordering Facility: [facility] Address: [address] [place] [address] Performed By: #### 1 9123-9, #### [facility] CLIA [id number] [address] [place] [address] [place] MCH (RBC) [Entitic mass] 26.9 pg Normal 26.0-34.0 [facility] Comment on above: Order Comment: Speci men Type: BLOOD SPECIMEN Ordering Facility: [facility] Address: [address] [place] [address] Performed By: #### 1 9123-04, #### [facility] CLIA [id number] [address] [place] [address] [place] MCHC (RBC) [Mass/Vol] 30.2 g/dL Low 30.5-36.0 [facility] Comment on above: Order Comment: Speci men Type: BLOOD SPECIMEN Ordering Facility: [facility] Address: [address] [place] [address] Performed By: #### 1 9123-04, #### [facility] CLIA [id number] [address] [place] [address] [place] MCV (RBC) [Entitic vol] 88.9 fL Normal 80.0-100.0 [facility] Comment on above: Order Comment: Speci men Type: BLOOD SPECIMEN Ordering Facility: [facility] Address: [address] [place] [address] Performed By: #### 1 23, #### [facility] CLIA [id number] [address] [place] [address] [place] Nucleated RBC (Bld) [#/Vol] 10*3/uL Normal <0.01 [facility] Comment on above: Order Comment: Speci men Type: BLOOD SPECIMEN Ordering Facility: [facility] Address: [address] [place] [address] Performed By: #### 1 91239, #### [facility] CLIA [id number] [address] [place] [address] [place] Platelet mean volume (Bld) [Entitic vol] 8.8 fL Low 9.0-12.7 [facility] Comment on above: Order Comment: Speci men Type: BLOOD SPECIMEN Ordering Facility: [facility] Address: [address] [place] [address] Performed By: #### 1 9123-9, 33607-7 #### [facility] CLIA [id number] [address] [place] [address] [place] Platelets (Bld) [#/Vol] 240 10*3/uL Normal 150-400 [facility] Comment on above: Order Comment: Speci men Type: BLOOD SPECIMEN Ordering Facility: [facility] Address: [address] [place] [address] Performed By: #### 1 9123-9, 69682-8 #### [facility] CLIA [id number] [address] [place] [address] [place] RBC (Bld) [#/Vol] 4.61 10*6/uL Normal 4.20-6.00 [facility] Comment on above: Order Comment: Speci men Type: BLOOD SPECIMEN Ordering Facility: [facility] Address: [address] [place] [address] Performed By: #### 1 9123-9, 32917-3 #### [facility] CLIA [id number] [address] [place] [address] [place] WBC (Bld) [#/Vol] 7.15 10*3/uL Normal 3.70-11.00 [facility] Comment on above: Order Comment: Speci men Type: BLOOD SPECIMEN Ordering Facility: [facility] Address: [address] [place] [address] Performed By: #### 1 9123-9, 92427-2 #### [facility] CLIA [id number] [address] [place] [address] [place] CONSULTon 10-24-2023 CONSULT HNO ID: [id number] Author: NAUN COUCH MD Service: Nephrology Author Type: Physician Type: Consults Filed: 10/24/2023 15:31 Note Text: Nephrology INITIAL CONSULT NOTE SERVICE DATE: 10/24/2023 SERVICE TIME: 12:11 PM REASON FOR CONSULT: CKD, fluid overload REQUESTING PHYSICIAN: HARPAL Garcia PRIMARY CARE PHYSICIAN: Mounika Brooke MD, MD Subjective Mr. Lora is a 63 year old male with a past medical history of CKD III with baseline Cr up ~ 1.5, chronic respiratory failure on 4L home O2 since 05/2023, morbid obesity, insulin dependent diabetes, and left forefoot amputation admitted from home who presented to [facility] with complaints of worsening shortness of breath, bilateral lower extremity edema and ~ 10lb weight gain in the last few weeks. Patient reports multiple hospital admissions in 2023 at [facility] in [place] for fluid overload. He states he usually feels better after being diuresed with IV Lasix but fluid builds up again . He reports drinking approximately 1/2 gallon of water per day. He states he is complaint with home dose of Torsemide 40 mg daily. In the ED, imaging significant for possible mild pulmonary congestion and patchy linear nodular opacity near left lung base. Initial labs significant for Cr 2.0/eGFR 37, BUN 60, glu 138, pro-BNP1,124, and trop [id number]. Nephrology consulted for management of AMY and fluid volume overload. PAST MEDICAL HISTORY Diagnosis Date Chronic respiratory failure (HCC) CKD (chronic kidney disease) HTN (hypertension) IDDM (insulin dependent diabetes mellitus) MRSA infection Obesity S/P amputation PAST SURGICAL HISTORY Procedure Laterality Date AMPUTAT OF TOEANDMETATARSAL No family history on file. Social History Tobacco Use Smoking status: Never Substance Use Topics Alcohol use: No Drug use: No atorvastatin (LIPITOR) 40 mg tablet, , Disp: , Rfl: , 10/22/2023 budesonide-formoterol (SYMBICORT) 160-4.5 mcg/actuation inhaler, Inhale 2 Puffs as instructed., Disp: , Rfl: gabapentin (NEURONTIN) 600 mg tablet, Take 600 mg by mouth three times a day., Disp: , Rfl: , 10/23/2023 guaiFENesin (MUCINEX) 600 mg 12 hr tablet, Take 1,200 mg by mouth., Disp: , Rfl: hydrALAZINE (APRESOLINE) 25 mg tablet, TAKE 3 TABLETS BY MOUTH TWICE DAILY FOR 60 DAYS, Disp: , Rfl: , 10/23/2023 JENTADUETO 2.5-1,000 mg tab, , Disp: , Rfl: , 10/23/2023 torsemide (DEMADEX) 20 mg tablet, Take 40 mg by mouth., Disp: , Rfl: , 10/23/[address] (PROTONIX) 40 mg tablet, Take 40 mg by mouth once daily., Disp: , Rfl: , 10/23/2023 ASPIRIN (ASPIR-81 ORAL), Take 81 mg by mouth once daily., Disp: , Rfl: , 10/23/2023 FIASP FLEXTOUCH U-100 INSULIN 100 unit/mL (3 mL) pen, inject 15-18-20 PLUS ISS #2 (EXPECT DAILY DOSE OF 80 UNITS), Disp: , Rfl: rOPINIRole (REQUIP) 1 mg tablet, Take 1 mg by mouth daily at bedtime., Disp: , Rfl: tamsulosin (FLOMAX) 0.4 mg, Take 1 capsule by mouth every afternoon., Disp: , Rfl: , 10/22/2023 insulin regular human (HUMULIN R) 100 unit/mL injection, Inject 15 Units subcutaneously three times daily before meals., Disp: , Rfl: INSULIN GLARGINE,HUM.REC.ANLO G (LANTUS SOLOSTAR SUBCUTANEOUS), Inject 40 Units subcutaneously daily at bedtime., Disp: , Rfl: sitaGLIPtin-metFORMIN (JANUMET) 50-1,000 mg per tablet, Take 1 tablet by mouth twice daily with meals., Disp: , Rfl: Current Facility-Administered Medications Medication Dose Route Frequency atorvastatin 40 mg tab(s) (LIPITOR) 40 mg ORAL AT BEDTIME aspirin 81 mg chewable tab(s) 81 mg ORAL DAILY insulin lispro 15 Units injection (rapid acting) (ADMElog) 15 Units SUBCUTANEOUS w MEALS gabapentin 600 mg tab(s) (NEURONTIN) 600 mg ORAL TID guaiFENesin 1,200 mg ER tab(s) (MUCINEX) 1,200 mg ORAL q 12 H hydrALAZINE 75 mg tab(s) (APRESOLINE) 75 mg ORAL q 12 H insulin glargine 20 Units pen (long acting) 20 Units SUBCUTANEOUS BID rOPINIRole 2 mg tab(s) (REQUIP) 2 mg ORAL AT BEDTIME tamsulosin 0.4 mg cap(s) (FLOMAX) 0.4 mg ORAL AT BEDTIME furosemide 40 mg injection (LASIX) 40 mg INTRAVENOUS BID 9a/5p melatonin 9 mg tab(s) 9 mg ORAL AT BEDTIME aluminum-magnesium hydroxide-simethicone 200-200-20 mg/5 mL 30 mL 30 mL ORAL q 6 H PRN ondansetron (PF) 4 mg injection (ZOFRAN) 4 mg INTRAVENOUS q 6 H PRN senna-docusate 8.6-50 mg 1 tablet (SENNA-S) 1 tablet ORAL BID PRN polyethylene glycol 3350 17 g packet 17 g ORAL DAILY PRN acetaminophen 500-1,000 mg tab(s) (TYLENOL) 500-1,000 mg ORAL q 6 H PRN sodium chloride 0.9 % (flush) 2-10 mL (BD POSIFLUSH) 2-10 mL INTRAVENOUS DIRECTED PRN And perflutren lipid microspheres 1.1 mg/mL 1.3 mL injection (DEFINITY) 1.3 mL INTRAVENOUS DIRECTED PRN NaCl 0.9% iv flush bag 20 mL INTRAVENOUS PRN dextrose 40 % 15 g 15 g ORAL PRN Or glucagon 1 mg injection 1 mg INTRAMUSCULAR PRN Or dextrose 10% iv bolus 12.5 g INTRAVENOUS PRN insulin lispro injection (rapid acting) (ADMElog) SUBCUTANEOUS w MEALS AND HS (more content not included)... [facility] CONSULT HNO ID: [id number] Author: FLOR BE RN Service: ? Author Type: Registered Nurse Type: Consults Filed: 10/24/2023 11:28 Note Text: WOUND CARE SERVICE CONSULT NOTE SERVICE DATE: 10/24/2023 SERVICE TIME: 0915 am HISTORY OF PRESENT ILLNESS: Nicole Lora is a 63 year old male is being seen with the admitting diagnosis of Fluid Overload. Wound care consulted for chronic diabetic wound to the left plantar foot. Patient goes to wound clinic in [place] for care last dressing used was Teim. Left foot Transmetatarsal amputation healed. Right foot toes 2 and 3 Metatarsal amputations healed. PAST MEDICAL HISTORY Diagnosis Date Chronic respiratory failure (HCC) CKD (chronic kidney disease) HTN (hypertension) IDDM (insulin dependent diabetes mellitus) MRSA infection Obesity S/P amputation PAST SURGICAL HISTORY Procedure Laterality Date AMPUTAT OF TOEANDMETATARSAL Social History Tobacco Use Smoking status: Never Substance Use Topics Alcohol use: No Drug use: No No family history on file. MEDICATIONS: Current Facility-Administered Medications Medication Dose Route Frequency atorvastatin 40 mg tab(s) (LIPITOR) 40 mg ORAL AT BEDTIME aspirin 81 mg chewable tab(s) 81 mg ORAL DAILY insulin lispro 15 Units injection (rapid acting) (ADMElog) 15 Units SUBCUTANEOUS w MEALS gabapentin 600 mg tab(s) (NEURONTIN) 600 mg ORAL TID guaiFENesin 1,200 mg ER tab(s) (MUCINEX) 1,200 mg ORAL q 12 H hydrALAZINE 75 mg tab(s) (APRESOLINE) 75 mg ORAL q 12 H insulin glargine 20 Units pen (long acting) 20 Units SUBCUTANEOUS BID rOPINIRole 2 mg tab(s) (REQUIP) 2 mg ORAL AT BEDTIME tamsulosin 0.4 mg cap(s) (FLOMAX) 0.4 mg ORAL AT BEDTIME furosemide 40 mg injection (LASIX) 40 mg INTRAVENOUS BID 9a/5p melatonin 9 mg tab(s) 9 mg ORAL AT BEDTIME aluminum-magnesium hydroxide-simethicone 200-200-20 mg/5 mL 30 mL 30 mL ORAL q 6 H PRN ondansetron (PF) 4 mg injection (ZOFRAN) 4 mg INTRAVENOUS q 6 H PRN senna-docusate 8.6-50 mg 1 tablet (SENNA-S) 1 tablet ORAL BID PRN polyethylene glycol 3350 17 g packet 17 g ORAL DAILY PRN acetaminophen 500-1,000 mg tab(s) (TYLENOL) 500-1,000 mg ORAL q 6 H PRN sodium chloride 0.9 % (flush) 2-10 mL (BD POSIFLUSH) 2-10 mL INTRAVENOUS DIRECTED PRN And perflutren lipid microspheres 1.1 mg/mL 1.3 mL injection (DEFINITY) 1.3 mL INTRAVENOUS DIRECTED PRN NaCl 0.9% iv flush bag 20 mL INTRAVENOUS PRN dextrose 40 % 15 g 15 g ORAL PRN Or glucagon 1 mg injection 1 mg INTRAMUSCULAR PRN Or dextrose 10% iv bolus 12.5 g INTRAVENOUS PRN insulin lispro injection (rapid acting) (ADMElog) SUBCUTANEOUS w MEALS AND HS heparin iv infusion 25,000 units in NaCl 0.45% 250 mL LOW DOSE/ACS NOMOGRAM 0-3,000 Units/hr INTRAVENOUS CONTINUOUS And heparin RATE CHANGE bolus 1,000-4,000 Units for subtherapeutic PTTAC results 1,000-4,000 Units INTRAVENOUS PRN mometasone-formoterol 100-5 mcg/actuation 2 Puff inhaler (DULERA) 2 Puff INHALATION BID SITagliptin phosphate 50 mg tab(s) (JANUVIA) 50 mg ORAL DAILY And metFORMIN 500 mg tab(s) (GLUCOPHAGE) 500 mg ORAL BID w MEALS ipratropium-albuterol 3 mL nebulizer solution (DUONEB) 3 mL INHALATION As Directed And albuterol 2.5 mg /3 mL (0.083 %) 2.5 mg (PROVENTIL) 2.5 mg INHALATION q 2 H PRN ALLERGIES Allergen Reactions Penicillins Rash Objective PHYSICAL EXAM: BP 123/50 Pulse 77 Temp (Src) 97.7 (Oral) Resp 20 Ht 5' 11 (1.80m) Wt 325 lb 6.4 oz (147.6kg) SpO2 96% BMI 45.40 kg/(m2). O2 Therapy: Nasal Cannula, Liters: 6 Presenting wound information: Wound 10/24/23 0230 Left;Plantar (Active) Assessments 10/24/2023 9:38 AM Wound Image Site Assessment Red;[place] Nora-Wound Assessment Calloused Shape oval Wound Length (cm) 2 cm Wound Width (cm) 2.8 cm Wound Surface Area (cm2) 5.6 cm2 Wound Depth (cm) 0.4 cm Wound Volume (cm3) 2.24 cm3 Drainage Description Serous Drainage Amount Scant Odor None Nora-Wound Treatment Skin Prep Treatments Cleansed Dressing Silver Alginate (AG);Foam- Adhesive Dressing Changed Changed Dressing Status Intact No associated orders. Impression/Recommenda tions Left foot plantar, present on admission diabetic foot ulcer Clean wound with normal saline. Cut Biatain Alginate AG to fit the wound bed, apply to wound, cover with Alleyvn foam dressing. Change daily. Barriers to Healing: Age, Comorbid conditions, Compliance with care regimen, Medications, and Mobility Pressure Injury Prevention: Heel offloading, Redistribution surface, Turn schedule, and Turning positioner/wedge No orders of the defined types were placed in this encounter. Counseling Provided: Dressing/ointments Follow Up: Patient has outpatient follow up previously planned PHOTOGRAPHY: A photo was taken of the patient's wound(s). Photos can be found in Chart Review under the Scanned Docs tab in [employer]. The purpose of the photo(s) is to optimize the patient's medical care and allow (more content not included)... Normal [facility] CONSULT HNO ID: [id number] Author: NERY MOTTA MD Service: Cardiovascular Medicine Author Type: Physician Type: Consults Filed: 10/24/2023 17:43 Note Text: [facility] CARDIOVASCULAR MEDICINE CONSULT NOTE (Template ID [id number]) Nicole Lora [id number] PRIMARY SERVICE: Internal Medicine CONSULTING SERVICE: Cardiovascular Medicine: General Consults DATE OF ADMISSION: 10/23/2023 DATE OF CONSULT: 10/24/2023 REASON FOR CONSULT Elevated troponins HISTORY OF PRESENT ILLNESS Nicole Lora is a 63 year old male PMH of CKD 3, chronic respiratory failure, morbid obesity, insulin dependent diabetes, TC, Asthma, left forefoot amputation, lives in [place], who was admitted for volume overload. He has been in and out of the hospital 3 other times this year for heart failure/volume overload. He will get better on IV diuretics then go home and gain weight. Wears chronic o2 at home 4L. He does not know what meds he takes at home. He lives by himself. Denies chest pain, lightheadedness, dizziness, syncope, hematochezia, melena, hematuria, or other issues. PAST MEDICAL HISTORY PAST MEDICAL HISTORY Diagnosis Date Chronic respiratory failure (HCC) CKD (chronic kidney disease) HTN (hypertension) IDDM (insulin dependent diabetes mellitus) MRSA infection Obesity S/P amputation PAST SURGICAL HISTORY Procedure Laterality Date AMPUTAT OF TOEANDMETATARSAL FAMILY HISTORY No family history on file. SOCIAL HISTORY Social History Tobacco Use Smoking status: Never Substance Use Topics Alcohol use: No Drug use: No HOME MEDICATIONS atorvastatin (LIPITOR) 40 mg tabletDisp: Rfl: budesonide-formoterol (SYMBICORT) 160-4.5 mcg/actuation inhalerInhale 2 Puffs as instructed.Disp: Rfl: gabapentin (NEURONTIN) 600 mg tabletTake 600 mg by mouth three times a day.Disp: Rfl: guaiFENesin (MUCINEX) 600 mg 12 hr tabletTake 1,200 mg by mouth.Disp: Rfl: hydrALAZINE (APRESOLINE) 25 mg tabletTAKE 3 TABLETS BY MOUTH TWICE DAILY FOR 60 DAYSDisp: Rfl: JENTADUETO 2.5-1,000 mg tabDisp: Rfl: torsemide (DEMADEX) 20 mg tabletTake 40 mg by mouth.Disp: Rfl: pantoprazole DR (PROTONIX) 40 mg tabletTake 40 mg by mouth once daily.Disp: Rfl: ASPIRIN (ASPIR-81 ORAL)Take 81 mg by mouth once daily.Disp: Rfl: FIASP FLEXTOUCH U-100 INSULIN 100 unit/mL (3 mL) peninject 15-18-20 PLUS ISS #2 (EXPECT DAILY DOSE OF 80 UNITS)Disp: Rfl: rOPINIRole (REQUIP) 1 mg tabletTake 1 mg by mouth daily at bedtime.Disp: Rfl: tamsulosin (FLOMAX) 0.4 mgTake 1 capsule by mouth every afternoon.Disp: Rfl: insulin regular human (HUMULIN R) 100 unit/mL injectionInject 15 Units subcutaneously three times daily before meals.Disp: Rfl: INSULIN GLARGINE,HUM.REC.ANLO G (LANTUS SOLOSTAR SUBCUTANEOUS)Inject 40 Units subcutaneously daily at bedtime.Disp: Rfl: sitaGLIPtin-metFORMIN (JANUMET) 50-1,000 mg per tabletTake 1 tablet by mouth twice daily with meals.Disp: Rfl: INPATIENT MEDICATIONS Current Facility-Administered Medications Medication Dose Route Frequency atorvastatin 40 mg tab(s) (LIPITOR) 40 mg ORAL AT BEDTIME aspirin 81 mg chewable tab(s) 81 mg ORAL DAILY insulin lispro 15 Units injection (rapid acting) (ADMElog) 15 Units SUBCUTANEOUS w MEALS gabapentin 600 mg tab(s) (NEURONTIN) 600 mg ORAL TID guaiFENesin 1,200 mg ER tab(s) (MUCINEX) 1,200 mg ORAL q 12 H hydrALAZINE 75 mg tab(s) (APRESOLINE) 75 mg ORAL q 12 H insulin glargine 20 Units pen (long acting) 20 Units SUBCUTANEOUS BID rOPINIRole 2 mg tab(s) (REQUIP) 2 mg ORAL AT BEDTIME tamsulosin 0.4 mg cap(s) (FLOMAX) 0.4 mg ORAL AT BEDTIME furosemide 40 mg injection (LASIX) 40 mg INTRAVENOUS BID 9a/5p melatonin 9 mg tab(s) 9 mg ORAL AT BEDTIME aluminum-magnesium hydroxide-simethicone 200-200-20 mg/5 mL 30 mL 30 mL ORAL q 6 H PRN ondansetron (PF) 4 mg injection (ZOFRAN) 4 mg INTRAVENOUS q 6 H PRN senna-docusate 8.6-50 mg 1 tablet (SENNA-S) 1 tablet ORAL BID PRN polyethylene glycol 3350 17 g packet 17 g ORAL DAILY PRN acetaminophen 500-1,000 mg tab(s) (TYLENOL) 500-1,000 mg ORAL q 6 H PRN sodium chloride 0.9 % (flush) 2-10 mL (BD POSIFLUSH) 2-10 mL INTRAVENOUS DIRECTED PRN And perflutren lipid microspheres 1.1 mg/mL 1.3 mL injection (DEFINITY) 1.3 mL INTRAVENOUS DIRECTED PRN NaCl 0.9% iv flush bag 20 mL INTRAVENOUS PRN dextrose 40 % 15 g 15 g ORAL PRN Or glucagon 1 mg injection 1 mg INTRAMUSCULAR PRN Or dextrose 10% iv bolus 12.5 g INTRAVENOUS PRN insulin lispro injection (rapid acting) (ADMElog) SUBCUTANEOUS w MEALS AND HS heparin iv infusion 25,000 units in NaCl 0.45% 250 mL LOW DOSE/ACS NOMOGRAM 0-3,000 Units/hr INTRAVENOUS CONTINUOUS And heparin RATE CHANGE bolus 1,000-4,000 Units for subtherapeutic PTTAC results 1,000-4,000 Units INTRAVENOUS PRN mometasone-formoterol 100-5 mcg/actuation 2 Puff inhaler (DULERA) 2 Puff INHALATION BID SITagliptin phosphate 50 mg tab(s) (JANUVIA) 50 mg ORAL DAILY And metFORMIN 500 m (more content not included)... [facility] CONSULT PROGon 10-24-2023 CONSULT PROG HNO ID: [id number] Author: JOSE HARMON RPh Service: Pharmacy Author Type: Pharmacist Type: Consult Progress Note Filed: 10/24/2023 03:10 Note Text: PHARMACY PROGRESS NOTE Patient Name: Nicole Lora Admission Date: 10/23/2023 Date of Consult: 10/24/2023 Time of Consult: 3:09 AM In accordance with the pharmacy dose optimization service, the following medication changes/decisions have been made: Medication Current Regimen Dosing Assessment Indication Assessment/Plan Metformin 1000 Q12h Modify dosing to 500 mg Q12h diabetes mellitus Order has been modified to standard dosing based on the patient's estimated renal function: eGFR 41 mL/min/1.73m2 Sitagliptin 50 Q24h Maintain current regimen diabetes mellitus Order has been modified to standard dosing based on the patient's estimated renal function: eGFR 41 mL/min/1.73m2 For medications which dose is dependent on renal function, a pharmacist will monitor renal function daily and adjust doses accordingly. Any dose adjustments needed based on changes in indication should be addressed by an LIP. If you have any questions, please contact pharmacy at [phone]. Estimated Creatinine Clearance: 60.4 mL/min (A) (based on SCr of 1.82 mg/dL (H)). Serum creatinine and eGFR results 72 hours 10/24/2023 10/23/2023 2:08 AM 4:07 PM SCr (mg/dL) 1.82 2.00 eGFR (mL/min/1.73m2) 41 37 Allergies: ALLERGIES Allergen Reactions Penicillins Rash Last 1 Encounter Wt Readings: Date: Wt: 10/23/2023 147.6 kg (325 lb 6.4 oz) Last 1 Encounter Ht Readings: Date: Ht: 10/23/2023 180.3 cm (5' 11 ) Jose Harmon linn October 24, 2023 3:09 AM Normal [facility] Chloride ?Tm Ur-sCncon 10-23 Chloride Unsp time (U) [Moles/Vol] 61 mmol/L Normal 16-250 [facility] Comment on above: Order Comment: [place] Type: BLOOD SPECIMEN Ordering Facility: [facility] Address: [address] [place] [address] Performed By: #### 1 9123-9, 11135-5 #### [facility] CLIA [id number] [address] [place] [address] [place] D dimer FEU PPP-mCncon 10-23 Fibrin D-dimer FEU (PPP) [Mass/Vol] 2400 ng/mL FEU High <500 [facility] Comment on above: Order Comment: [place] Type: BLOOD SPECIMENOrdering Facility: [facility] Address: [address] [place] [address] Performed By: #### 4 8065-7, 05154-2, PTTAC ####[facility] [id number] [place] [address] [place] Fibrin D-dimer FEU (PPP) [Ma ss/Vol]on 10-24-2023 D DIMER AGE-RELATED CUTOFF 640 ng/mL FEU Normal [facility] Comment on above: Order Comment: Speci men Type: BLOOD SPECIMENOrdering Facility: [facility] Address: [address] [place] [address] Performed By: #### 4 8065-7, 91868-1, PTTAC ####[facility] [id number] [address] [place] Gas and Carbon monoxide pane l (BldV)on 10-24-2023 Base excess Calc (BldV) [Moles/Vol] 4 mmol/L High 0-2 [facility] Comment on above: Order Comment: Speci men Type: BLOOD SPECIMEN Ordering Facility: [facility] Address: [address] [place] [address] Performed By: #### 1 9123-9, 77101-2 #### [facility] CLIA [id number] [address] [place] [address] [place] Body temperature 32 [degF] Normal [facility] Comment on above: Order Comment: Speci men Type: BLOOD SPECIMEN Ordering Facility: [facility] Address: [address] [place] [address] Performed By: #### 1 9123-9, 20685-6 #### [facility] CLIA [id number] [address] [place] [address] [place] Calcium.ionized (Bld) [Mass/Vol] 1.14 mmol/L Normal 1.08-1.30 [facility] Comment on above: Order Comment: Speci men Type: BLOOD SPECIMEN Ordering Facility: [facility] Address: [address] [place] [address] Performed By: #### 1 9123-9, 74466-3 #### [facility] CLIA [id number] [address] [place] [address] [place] Calcium.ionized adjusted to pH 7.4 (BldA) [Moles/Vol] 1.08 mmol/L Normal 1.08-1.30 [facility] Comment on above: Order Comment: Speci men Type: BLOOD SPECIMEN Ordering Facility: [facility] Address: [address] [place] [address] Performed By: #### 1 9123-9, 02151-5 #### [facility] CLIA [id number] [address] [place] [address] [place] Carboxyhemoglobin (BldV) [Mass fraction] 2.3 % High 0.0-2.0 [facility] Comment on above: Order Comment: Speci men Type: BLOOD SPECIMEN Ordering Facility: [facility] Address: [address] [place] [address] Result Comment: Carb oxyhemoglobin Reference Range for Smokers: 2.0-8.0% Performed By: #### 1 9123-9, 23412-5 #### [facility] CLIA [id number] [address] [place] [address] [place] Chloride [Moles/Vol] 103 mmol/L Normal 97-105 [facility] Comment on above: Order Comment: Speci men Type: BLOOD SPECIMEN Ordering Facility: [facility] Address: [address] [place] [address] Performed By: #### 1 9123-9, 11353-8 #### [facility] CLIA [id number] [address] [place] [address] [place] CO2 (BldV) [Partial pressure] 66 mm[Hg] High 42-55 [facility] Comment on above: Order Comment: Speci men Type: BLOOD SPECIMEN Ordering Facility: [facility] Address: [address] [place] [address] Performed By: #### 1 9123-9, 94613-6 #### [facility] CLIA [id number] [address] [place] [address] [place] CO2 adjusted to patient's actual temperature (BldV) [Partial pressure] Normal [facility] Comment on above: Order Comment: Speci men Type: BLOOD SPECIMEN Ordering Facility: [facility] Address: [address] [place] [address] Performed By: #### 1 9123-9, 87290-3 #### [facility] CLIA [id number] [address] [place] [address] [place] Glucose [Mass/Vol] 222 mg/dL High 60-105 [facility] Comment on above: Order Comment: Speci men Type: BLOOD SPECIMEN Ordering Facility: [facility] Address: [address] [place] [address] Performed By: #### 1 9123-9, 03332-7 #### [facility] CLIA [id number] [address] [place] [address] [place] HCO3 (Bld) [Moles/Vol] 31 mmol/L High 24-28 [facility] Comment on above: Order Comment: Speci men Type: BLOOD SPECIMEN Ordering Facility: [facility] Address: [address] [place] [address] Performed By: #### 1 9123-9, 15460-2 #### [facility] CLIA [id number] [address] [place] [address] [place] Hematocrit (Bld) [Volume fraction] 38.5 % Low 39.0-51.0 [facility] Comment on above: Order Comment: Speci men Type: BLOOD SPECIMEN Ordering Facility: [facility] Address: [address] [place] [address] Performed By: #### 1 9123-9, 84434-0 #### [facility] CLIA [id number] [address] [place] [address] [place] Hemoglobin (Bld) [Mass/Vol] 12.5 g/dL Low 13.0-17.0 [facility] Comment on above: Order Comment: Speci men Type: BLOOD SPECIMEN Ordering Facility: [facility] Address: [address] [place] [address] Performed By: #### 1 9123-9, 25459-1 #### [facility] CLIA [id number] [address] [place] [address] [place] Lactate [Moles/Vol] 0.7 mmol/L Normal 0.5-2.2 [facility] Comment on above: Order Comment: Speci men Type: BLOOD SPECIMEN Ordering Facility: [facility] Address: [address] [place] [address] Performed By: #### 1 9123-9, 21767-5 #### [facility] CLIA [id number] [address] [place] [address] [place] Methemoglobin (Bld) [Mass fraction] 0.6 % Normal 0.0-1.5 [facility] Comment on above: Order Comment: Speci men Type: BLOOD SPECIMEN Ordering Facility: [facility] Address: [address] [place] [address] Performed By: #### 1 9123-9, 00908-8 #### [facility] CLIA [id number] [address] [place] [address] [place] O2 THERAPY RA=Room Air Normal [facility] Comment on above: Order Comment: Speci men Type: BLOOD SPECIMEN Ordering Facility: [facility] Address: [address] [place] [address] Performed By: #### 1 9123-9, 72730-7 #### [facility] CLIA [id number] [address] [place] [address] [place] Oxygen (BldV) [Partial pressure] 176 mm[Hg] High 35-45 [facility] Comment on above: Order Comment: Speci men Type: BLOOD SPECIMEN Ordering Facility: [facility] Address: [address] [place] [address] Performed By: #### 1 9123-9, 77674-8 #### [facility] CLIA [id number] [address] [place] [address] [place] Oxygen adjusted to patient's actual temperature (BldV) [Partial pressure] Normal [facility] Comment on above: Order Comment: Speci men Type: BLOOD SPECIMEN Ordering Facility: [facility] Address: [address] [place] [address] Performed By: #### 1 9123-9, 57606-1 #### [facility] CLIA [id number] [address] [place] [address] [place] Oxygen saturation in Venous blood 99 % High 60-85 [facility] Comment on above: Order Comment: Speci men Type: BLOOD SPECIMEN Ordering Facility: [facility] Address: [address] [place] [address] Performed By: #### 1 9123-9, #### [facility] CLIA [id number] [address] [place] [address] [place] Oxyhemoglobin (BldV) [Mass fraction] 96 % High 60-85 [facility] Comment on above: Order Comment: Speci men Type: BLOOD SPECIMEN Ordering Facility: [facility] Address: [address] [place] [address] Performed By: #### 1 9123-9, #### [facility] CLIA [id number] [address] [place] [address] [place] pH (BldV) 7.30 [pH] Low 7.32-7.42 [facility] Comment on above: Order Comment: Speci men Type: BLOOD SPECIMEN Ordering Facility: [facility] Address: [address] [place] [address] Performed By: #### 1 239, #### [facility] CLIA [id number] [address] [place] [address] [place] pH adjusted to patient's actual temperature (BldV) Normal [facility] Comment on above: Order Comment: Speci men Type: BLOOD SPECIMEN Ordering Facility: [facility] Address: [address] [place] [address] Performed By: #### 1 9123-9, #### [facility] CLIA [id number] [address] [place] [address] [place] Potassium [Moles/Vol] 3.9 mmol/L Normal 3.5-5.0 [facility] Comment on above: Order Comment: Speci men Type: BLOOD SPECIMEN Ordering Facility: [facility] Address: [address] [place] [address] Performed By: #### 1 9123-9, 92058-3 #### [facility] CLIA [id number] [address] [place] [address] [place] Sodium [Moles/Vol] 140 mmol/L Normal 136-144 [facility] Comment on above: Order Comment: [place] Type: BLOOD SPECIMEN Ordering Facility: [facility] Address: [address] [place] [address] Performed By: #### 1 9123-9, 57776-0 #### [facility] CLIA [id number] [address] [place] [address] [place] HIGH SENSITIVITY TROPONIN To n 10-24-2023 Troponin T.cardiac High sensitivity method [Mass/Vol] 153 ng/L High <12 [facility] Comment on above: Order Comment: [place] Type: BLOOD SPECIMENOrdering Facility: [facility] Address: [address] [place] [address] Result Comment: When assessing risk for acute coronary syndromes: In patients undergoing blood draw greater than or equal to 2 hours from symptom onset, with history of very low to moderate risk and non-ischemic ECG, an initial hs-Troponin T less than 12 ng/L AND a 1 hour delta hs-Troponin T less than 3 ng/L should be considered very low risk for 30 day MACE. Performed By: #### H STNT ####[facility] [id number] [address] [place] [facility] Troponin T.cardiac High sensitivity method [Mass/Vol] 152 ng/L High <12 [facility] Comment on above: Order Comment: [place]onna [place] Type: BLOOD SPECIMENOrdering Facility: [facility] Address: [address] [place] [address] Result Comment: When assessing risk for acute coronary syndromes: In patients undergoing blood draw greater than or equal to 2 hours from symptom onset, with history of very low to moderate risk and non-ischemic ECG, an initial hs-Troponin T less than 12 ng/L AND a 1 hour delta hs-Troponin T less than 3 ng/L should be considered very low risk for 30 day MACE. Performed By: #### 2 4321-2, HSTNT ####[facility] [id number] [place] [id number] [place] HISTORY PHYSICALon HISTORY PHYSICAL HNO ID: [id number] Author: TAY STEWART MD Service: General Internal Medicine Author Type: Physician Type: H&P Filed: 10/25/2023 10:52 Note Text: HISTORY AND PHYSICAL EXAMINATION SERVICE DATE: 10/24/2023 SERVICE TIME: 10:45AM PRIMARY CARE PHYSICIAN: Mounika Brooke MD, MD Subjective CHIEF COMPLAINT: Fluid overload HPI: This is a 63 year old male who has a past medical history of CKD stage III, chronic respiratory failure, obesity, DM, and left forefoot amputation. Patient presents from home for worsening with edema and weight gain of about 10 pounds over the past week. Patient states he was discharged from the hospital 4 days ago he has been experiencing shortness of breath over the past 2 days. He wears 4 L nasal cannula at baseline is currently on 6 L nasal cannula. He denies any recent illnesses, chest pain, fever or chills. FUNCTIONAL STATUS: Independent PAST MEDICAL HISTORY Diagnosis Date Chronic respiratory failure (HCC) CKD (chronic kidney disease) HTN (hypertension) IDDM (insulin dependent diabetes mellitus) MRSA infection Obesity S/P amputation PAST SURGICAL HISTORY Procedure Laterality Date AMPUTAT OF TOEANDMETATARSAL No family history on file. Social History Tobacco Use Smoking status: Never Substance Use Topics Alcohol use: No Drug use: No atorvastatin (LIPITOR) 40 mg tablet, , Disp: , Rfl: , 10/22/2023 budesonide-formoterol (SYMBICORT) 160-4.5 mcg/actuation inhaler, Inhale 2 Puffs as instructed., Disp: , Rfl: gabapentin (NEURONTIN) 600 mg tablet, Take 600 mg by mouth three times a day., Disp: , Rfl: , 10/23/2023 guaiFENesin (MUCINEX) 600 mg 12 hr tablet, Take 1,200 mg by mouth., Disp: , Rfl: hydrALAZINE (APRESOLINE) 25 mg tablet, TAKE 3 TABLETS BY MOUTH TWICE DAILY FOR 60 DAYS, Disp: , Rfl: , 10/23/2023 JENTADUETO 2.5-1,000 mg tab, , Disp: , Rfl: , 10/23/2023 torsemide (DEMADEX) 20 mg tablet, Take 40 mg by mouth., Disp: , Rfl: , 10/23/[address] (PROTONIX) 40 mg tablet, Take 40 mg by mouth once daily., Disp: , Rfl: , 10/23/2023 ASPIRIN (ASPIR-81 ORAL), Take 81 mg by mouth once daily., Disp: , Rfl: , 10/23/2023 FIASP FLEXTOUCH U-100 INSULIN 100 unit/mL (3 mL) pen, inject 15-18-20 PLUS ISS #2 (EXPECT DAILY DOSE OF 80 UNITS), Disp: , Rfl: rOPINIRole (REQUIP) 1 mg tablet, Take 1 mg by mouth daily at bedtime., Disp: , Rfl: tamsulosin (FLOMAX) 0.4 mg, Take 1 capsule by mouth every afternoon., Disp: , Rfl: , 10/22/2023 insulin regular human (HUMULIN R) 100 unit/mL injection, Inject 15 Units subcutaneously three times daily before meals., Disp: , Rfl: INSULIN GLARGINE,HUM.REC.ANLO G (LANTUS SOLOSTAR SUBCUTANEOUS), Inject 40 Units subcutaneously daily at bedtime., Disp: , Rfl: sitaGLIPtin-metFORMIN (JANUMET) 50-1,000 mg per tablet, Take 1 tablet by mouth twice daily with meals., Disp: , Rfl: ALLERGIES Allergen Reactions Penicillins Rash COMPLETE REVIEW OF SYSTEMS: RESPIRATORY: Negative for cough, wheezing or shortness of breath. CARDIOVASCULAR: See HPI GI: Negative for abdominal discomfort, blood in stools or black stools or change in bowel habits : No history of dysuria, frequency or incontinence MUSCULOSKELETAL: Negative for joint pain or swelling, back pain or muscle pain. SKIN: Negative for lesions, rash, and itching. NEURO: No history of headaches, syncope, paralysis, seizures or tremors All other reviewed and negative other than HPI. Objective PHYSICAL EXAM: Physical Exam Performed: GENERAL: Drowsy, cooperative LUNGS: Lungs clear to auscultation. Good diaphragmatic excursion. CARDIAC: normal S1 and S2; no rubs, murmurs, or gallops ABDOMEN: Abdomen soft, non-tender. BS normal. No masses or organomegaly. Obese EXTREMETIES: Extremities normal. No deformities, edema, clubbing or skin discoloration. NEURO: Alert, oriented X 3, drowsy PULSES: normal BP 135/71 Pulse 79 Temp (Src) 98.1 (Oral) Resp 19 Ht 5' 11 (1.80m) Wt 325 lb 6.4 oz (147.6kg) SpO2 94% BMI 45.40 kg/(m2). O2 Therapy: Nasal Cannula, Liters: 5.00 DATA: Diagnostic tests reviewed for today's visit: Most recent labs and imaging results. Assessment/Plan Active Hospital Problems Fluid overload (POA: Yes) Type 2 diabetes mellitus with diabetic polyneuropathy, with long-term current use of insulin (HCC) (POA: Yes) Stage 3b chronic kidney disease (HCC) (POA: Yes) Primary hypertension (POA: Yes) Acute on chronic respiratory failure with hypoxemia (HCC) (POA: Yes) Restless leg syndrome (POA: Yes) Acute on chronic heart failure with preserved ejection fraction (HCC) (POA: Status not on file) Obesity, Class III, BMI >= 40 (POA: Status not on file) Principal Problem: Fluid overload Assessment AND Plan: Recent hospitalization for same issue, bilateral lower extremity edema, SOB Active Problems: Type 2 diabetes mellitus with diabetic polyneuropathy, with long-term current use of insulin (HCC) Assessment AND Plan: Insul (more content not included)... Normal [facility] HISTORY PHYSICAL HNO ID: [id number] Author: JUDI LOERA PA Service: General Internal Medicine Author Type: Physician Relocation Manager Type: H&P Filed: 10/24/2023 02:27 Note Text: Department of Internal Medicine HISTORY AND PHYSICAL EXAMINATION SERVICE DATE: 10/24/2023 SERVICE TIME: 2:22 AM PRIMARY CARE PHYSICIAN: Mounika Brooke MD, MD Subjective CHIEF COMPLAINT: Fluid overload HPI: This is a 63 year old male with a PMHx of CKD 3b, chronic respiratory failure, morbid obesity, insulin dependent diabetes, left forefoot amputation admitted from home, lives in [place] for fluid overload. The patient states he's had 4 hospital admissions so far this year for the same and he has had medications adjusted; states he gets better while admitted receiving IV lasix and then gains weight and develops worsening edema when he returns home. He's gained about 10 lbs since recent admission. He states he drinks about a half a gallon of water a day. He does not follow any fluid restriction or salt restriction. He admits to compliance with his medications, but is not able to name his medications. He denies worsening shortness of breath, wears 4 L NC at baseline. Endorses orthopnea, sleeps upright, this is his recent baseline. He endorses dyspnea on exertion, has been doing okay ambulating around his apartment however. He denies cough or wheezing, fever or chills. He endorses chronic worsening low back pain bilaterally and right groin pain but denies acute leg weakness, new numbness tingling, saddle anesthesia, bowel incontinence or constipation. In ED SpO2 94% time 6 L, BP 148/61, pulse 73, temp 97.7 Fahrenheit, respiratory rate 20 Creatinine 2.0, glucose 138, BNP 1124, MARINA 172-> 167, CBC unremarkable, chest x-ray 1. Patchy linear nodular opacity near the left lung base, which is of uncertain chronicity. Possible considerations include an area of infiltrate, atelectasis or scarring. Recommend short interval follow-up radiograph to ensure clearing. 2. Findings suggestive of pulmonary venous hypertension and possible mild pulmonary edema. DVT ultrasound bilateral lower extremity EGATIVE STUDY FOR PROXIMAL DVT IN THE LEFT AND RIGHT LOWER EXTREMITIES. NONDIAGNOSTIC STUDY FOR CALF DVT IN THE LEFT AND RIGHT LOWER EXTREMITIES. NEGATIVE STUDY FOR SUPERFICIAL THROMBOPHLEBITIS IN THE IMAGED SEGMENTS OF THE LEFT AND RIGHT LOWER EXTREMITIES. EKG normal sinus rhythm, rate 77, no ischemic changes. He was given 40 mg IV Lasix in ED Spoke with ED attending and asked her to speak with cardiology regarding the elevated troponins. Reportedly cardiology did not have any recommendations, though unclear if he was briefed on the case, and said to admit to floor and consult him. Patient was seen at bedside in ED. Code status discussed and patient unable to decide this time, he understands that that means he will remain full code by default. FUNCTIONAL STATUS: Independent PAST MEDICAL HISTORY Diagnosis Date IDDM (insulin dependent diabetes mellitus) ([facility]) MRSA infection PAST SURGICAL HISTORY Procedure Laterality Date AMPUTAT OF TOEANDMETATARSAL No family history on file. Social History Tobacco Use Smoking status: Never Substance Use Topics Alcohol use: No Drug use: No budesonide-formoterol (SYMBICORT) 160-4.5 mcg/actuation inhaler, Inhale 2 Puffs as instructed., Disp: , Rfl: guaiFENesin (MUCINEX) 600 mg 12 hr tablet, Take 1,200 mg by mouth., Disp: , Rfl: torsemide (DEMADEX) 20 mg tablet, Take 40 mg by mouth., Disp: , Rfl: atorvastatin (LIPITOR) 40 mg tablet, , Disp: , Rfl: gabapentin (NEURONTIN) 600 mg tablet, Take 600 mg by mouth three times a day., Disp: , Rfl: hydrALAZINE (APRESOLINE) 25 mg tablet, TAKE 3 TABLETS BY MOUTH TWICE DAILY FOR 60 DAYS, Disp: , Rfl: FIASP FLEXTOUCH U-100 INSULIN 100 unit/mL (3 mL) pen, inject 15-18-20 PLUS ISS #2 (EXPECT DAILY DOSE OF 80 UNITS), Disp: , Rfl: JENTADUETO 2.5-1,000 mg tab, , Disp: , Rfl: rOPINIRole (REQUIP) 1 mg tablet, Take 1 mg by mouth daily at bedtime., Disp: , Rfl: tamsulosin (FLOMAX) 0.4 mg, Take 1 capsule by mouth every afternoon., Disp: , Rfl: insulin regular human (HUMULIN R) 100 unit/mL injection, Inject 15 Units subcutaneously three times daily before meals., Disp: , Rfl: INSULIN GLARGINE,HUM.REC.ANLO G (LANTUS SOLOSTAR SUBCUTANEOUS), Inject 40 Units subcutaneously daily at bedtime., Disp: , Rfl: ASPIRIN (ASPIR-81 ORAL), Take 81 mg by mouth once daily., Disp: , Rfl: sitaGLIPtin-metFORMIN (JANUMET) 50-1,000 mg per tablet, Take 1 tablet by mouth twice daily with meals., Disp: , Rfl: ALLERGIES Allergen Reactions Penicillins Rash COMPLETE REVIEW OF SYSTEMS: Review of Systems Constitutional: Negative for activity change, chills and fever. Respiratory: Negative for cough, shortness of breath and wheezing. Cardiovascular: Positive for leg swelling. Negative for chest pain. Gastrointestinal: Negative for abdominal pain, constipation, d (more content not included)... Normal [facility] HbA1c (Bld)on 10-24-2023 Average glucose Estimated from glycated hemoglobin (Bld) [Mass/Vol] 240 mg/dL Normal [facility] Comment on above: Order Comment: Speci men Type: BLOOD SPECIMENOrdering Facility: [facility] Address: [address] [place] [address] Result Comment: eAG: (Estimated average glucose) is a calculated value from HgbA1c and is outside sales representative of the average blood glucose level in the last 2-3 month period. Performed By: #### 5 5454-3 ####[facility] LABIA [id number] [place] [address] [place] HbA1c (Bld) [Mass fraction] 10.0 % High 4.3-5.6 [facility] Comment on above: Order Comment: Speci men Type: BLOOD SPECIMENOrdering Facility: [facility] Address: [address] [place] [address] [place] [address] Result Comment: [place] Diabetes Association guidelines indicate that patients with HgbA1c in the range 5.7-6.4% are at increased risk for development of diabetes, and intervention by lifestyle modification may be beneficial. HgbA1c greater or equal to 6.5% is considered diagnostic of diabetes. Performed By: #### 5 5454-3 ####[facility]IA [id number] [address] [place] NM LUNG VENT / PERF VQon NM LUNG VENT / PERF VQ * * *Final Report* * * DATE OF EXAM: Oct 24 2023 2:27PM FVN 0032 - NM LUNG VENT / PERF VQ / PROCEDURE REASON: Pulmonary embolism (PE) suspected, high prob * * * * Physician Interpretation * * * * LUNG VENTILATION/PERFUSION SCAN. CLINICAL HISTORY: 63 years old Male patient with history of shortness of breath. Pulmonary embolism (PE) suspected, high probability. Assess for pulmonary embolism. TECHNIQUE: 0.8 mCi Tc 99m DTPA aerosol inhaled (estimated dose) 5.6 millicuries Tc-99m MAA IV planar imaging of the lungs in multiple views (anterior, posterior, oblique and lateral views). CORRELATION: Chest x-ray dated 10/23/2023. RESULT: Mild heterogeneity of perfusion is noted. No segmental ventilation or perfusion abnormalities are identified. No mismatched defects are seen. - IMPRESSION: LOW PROBABILITY OF PULMONARY EMBOLISM. Crab Steamer: PSCErika Transcribe Date/Time: Oct 24 2023 2:27P Dictated by : CAT LUO MD This examination was interpreted and the report reviewed and electronically signed by: CAT LUO MD on Oct 24 2023 2:29PM EST [id number] Normal [facility] NURSING PROGon 10-24-2023 NURSING PROG HNO ID: [id number] Author: SLADE MCMILLAN, RN Service: ? Author Type: Registered Nurse Type: Nursing Progress Note Filed: 10/24/2023 23:50 Note Text: 2118: page house to delia ishan pt pCO2 came back 72. 2143: raymon bhatt at bedside states she will talk to ICU team and go from there 2348: pt transferred to MICU, report given to RN. [facility] NURSING PROG HNO ID: [id number] Author: GUADALUPE ANGEL, RAFAEL Service: Nursing Author Type: Registered Nurse Type: Nursing Progress Note Filed: 10/24/2023 18:32 Note Text: Other: Late entry for 829, decreased oxygen to 5L NC, baseline is 4L NC at home. 1230: Heparin gtt discontinued, ( no cardiology intervention to be done at this time) diet order placed 1700: urgent pCO2 of 70. Updated POLICE CLERK via secure chat. 1715 oxygen turned to 4.5 L per resp recommendation quality officer paged 1745: House office aware and into talk with patient. Will reach out to ICU for recommendations, sating 88-90 on 4.5 L 1830: New orders to repeat ABG's again at 2100 [facility] NURSING PROG HNO ID: [id number] Author: ANIA VAZQUEZ, RAFAEL Service: ? Author Type: Registered Nurse Type: Nursing Progress Note Filed: 10/24/2023 03:26 Note Text: 0223- secure chat with HARPAL Garcia, pt has STAT order for echo, ok to be done tommorow, does not need to be done at this time [facility] NURSING PROG HNO ID: [id number] Author: SLADE MCMILLAN, RN Service: ? Author Type: Registered Nurse Type: Nursing Progress Note Filed: 10/24/2023 04:15 Note Text: 0304: page house pt MARINA came back 152. 0405: page [place] pt pulse ox keep dropping to 85-87 and he is on 6L of O2. he would jump up to 95 then back down and sustaining at 88%. He denies SOB. 0412: called back form , new orders put in. [facility] NURSING PROG HNO ID: [id number] Author: ANIA VAZQUEZ, RAFAEL Service: ? Author Type: Registered Nurse Type: Nursing Progress Note Filed: 10/24/2023 01:27 Note Text: Transfer Note: PATIENT NAME: Nicole Lora Patient Location: [place] [id number] Room: [address] Patient transferred into room/unit PK322 from the ED in stable condition. Actions taken: No futher actions taken at this time. Will continue to monitor and check with patient. Normal [facility] Osmolality SerPlon Osmolality [Osmolality] 316 mosm/kg High 275-300 [facility] Comment on above: Order Comment: [place] Type: BLOOD SPECIMEN Ordering Facility: [facility] Address: [address] [place] [address] Performed By: #### P TTAC #### [facility] CLIA [id number] [address] [place] [address] [place] Osmolality Uron 10-24-2023 Osmolality (U) [Osmolality] 343 mosm/kg Normal 50-1200 [facility] Comment on above: Order Comment: [place] Type: BLOOD SPECIMEN Ordering Facility: [facility] Address: [address] [place] [address] Performed By: #### 1 9123-9, 61462-8 #### [facility] CLIA [id number] [address] [place] [address] [place] AREN PT panel Coag (PPP)on 2023 INR Coag (PPP) [Relative time] 1.0 {INR} Normal 0.9-1.3 [facility] Comment on above: Order Comment: [place] Type: BLOOD SPECIMENOrdering Facility: [facility] Address: [address] [place] [address] Result Comment: Hazel min K Antagonist (VKA) Therapeutic Range: INR 2 to 3 (Target INR of 2.5) Note: For patients treated with VKA drugs, such as warfarin, the [employer] 2012 Guideline recommends a therapeutic INR range of 2 to 3 (target INR of 2.5). This recommendation includes high-risk patients with antiphospholipid syndrome with previous arterial or venous thromboembolism, current-generation mechanical or bioprosthetic aortic heart valve replacement. Note: Patients with mechanical aortic valve replacement and additional risk factors for thromboembolic events (atrial fibrillation, previous thromboembolism, LV dysfunction, hypercoagulable conditions) or an older generation mechanical AVR (i.e., ball in-Cage) or any mechanical MVR should have a INR therapeutic range of 2.5 to 3.5 (target INR of 3). Doc GH, et al. Chest 2012, 141:7S-47S Sheri RA, et al. [facility] 2017, 70: 252-289 Performed By: #### 4 8065-7, 01209-0, PTTAC ####[facility] [id number] [place] [address] [place] PT Coag (PPP) [Time] 10.9 s Normal 9.7-13.0 [facility] Comment on above: Order Comment: Speci men Type: BLOOD SPECIMENOrdering Facility: [facility] Address: [address] [place] [address] Performed By: #### 4 8065-7, 73230-2, PTTAC ####[facility] [id number] [place] [address] [place] PTT, ANTICOAGULANT THERAPYon 10-24-2023 aPTT Coag (PPP) [Time] 31.1 s Normal 23.0-32.4 [facility] Comment on above: Order Comment: Speci men Type: BLOOD SPECIMEN Ordering [facility] Address: [address] [place] [address] Performed By: #### P TTAC #### [facility] CLIA [id number] [address] [place] [address] [place] aPTT Coag (PPP) [Time] 28.0 s Normal 23.0-32.4 [facility] Comment on above: Order Comment: Speci men Type: BLOOD SPECIMENOrdering Facility: [facility] Address: [address] [place] [address] Performed By: #### 4 8065-7, 64753-0, PTTAC ####[facility] [id number] [place] [address] [place] Potassium ?Tm Ur-sCncon 03-0 Potassium Unsp time (U) [Moles/Vol] 25.9 mmol/L Normal 10.0-160.0 [facility] Comment on above: Order Comment: Speci men Type: BLOOD SPECIMEN [facility]ing [facility]: [facility] Address: [address] [place] [address] Performed By: #### P TTAC #### [facility] CLIA [id number] [address] [place] [address] [place] Prot/Creat Uron 10-24-2023 Protein/Creatinine (U) [Mass ratio] 1.09 mg/mg High <0.15 [facility] Comment on above: Order Comment: Speci men Type: BLOOD SPECIMEN Ordering [facility] Address: [address] [place] [address] Result Comment: Adul t Proteinuria Categories: <0.15 mg/mg is considered normal to mildly increased 0.15 - 0.50 mg/mg is considered moderately increased >0.50 mg/mg is considered severely increased KDIGO. (2013). KDIGO 2012 Clinical Practice Guideline for the Evaluation and Management of Chronic Kidney Disease. Official Journal of the International Society of Nephrology, 3(1), 1-150. Performed By: #### P TTAC #### [facility] CLIA [id number] [address] [place] [address] [place] Protein/Creatinine (U) [Mass ratio]on 10-24-2023 Creatinine (U) [Mass/Vol] 43.3 mg/dL Normal 20.0-300.0 [facility] Comment on above: Order Comment: Speci men Type: BLOOD SPECIMEN [facility] Address: [address] [place] [address] Performed By: #### P TTAC #### [facility] CLIA [id number] [address] [place] [address] [place] Protein (U) [Mass/Vol] 47 mg/dL High 0-20 [facility] Comment on above: Order Comment: Speci men Type: BLOOD SPECIMEN [facility]ing [facility] Address: [address] [id number] Performed By: #### P TTAC #### [facility] CLIA [id number] [address] [place] [id number] [place] Sodium ?Tm Ur-sCncon 024 Sodium Unsp time (U) [Moles/Vol] 61 mmol/L Normal 14-216 [facility] Comment on above: Order Comment: Speci men Type: BLOOD SPECIMEN Ordering [facility] Address: [address] [id number] Performed By: #### P TTAC #### [facility] CLIA [id number] [address] [place] [id number] [place] THERAPY NTon 10-24-2023 THERAPY NT HNO ID: [id number] Author: CATHIE DOMÍNGUEZ, PT Service: Physical Therapy Author Type: Physical Therapist Type: Therapy (PT/OT/Speech/Resp) Filed: 10/24/2023 12:05 Note Text: Physical Therapy Evaluation Summary SERVICE DATE: 10/24/2023 SERVICE TIME: 908 to 931 ROOM: [place] [address] PT 6 Clicks Score: 20 DISCHARGE RECOMMENDATIONS Home PT Physical Assist at Home for: Transportation, Shopping, Laundry, Cleaning ASSESSMENT Response to Therapy Interventions: Good Participation in Activities, Low Activity Tolerance PRECAUTIONS Bed/Chair Alarm, Fall Risk, Lines/Tubes/Drains, Other: See Comments, Fluid Restrictions, Diet Restrictions, Weight Bearing Restrictions (NPO, Left Foot Wound Per RN Janice) WBAT) Respiratory, 5L this Left Lower Extremity Weight Bearing Status: WBAT (Per RAFAEL Camacho)) CURRENT HOSPITAL COURSE admit for fluid overload; Acute on chronic respiratory failure Relevant Past Medical History: CKD 3b, chronic respiratory failure, morbid obesity, insulin dependent diabetes, left forefoot amputation HOME LIVING Patient Lives With: Self/Alone, Other: See Comment Comments: Apt 1st level In [place], [place] Assistance Available: Part-Time, Other: See Comment Comments: five children in area, Pt reported he is checked daily by his family Entry To Home: No Stairs Number Of Stairs To Bed/Bath: 0 Tub/Shower Type: WIS Laundry: Same level Equipment Owned: Grab Bars- Shower, Shower Chair, Hand Held Shower, Walker- Wheeled, Rollator, Cane, Home Oxygen, Other: See Comment (4L 02 night use) PRIOR FUNCTIONAL LEVEL Within Functional Limits, History of Falls, Other: See Comment (falls X 2 in past year) Per Pt, he was independent with ADL s, IADL's, ambulated independently prior to admit, and drives. Per [facility], Pt has been in and out of hospitals for the past six weeks. . Pt has five children in the area, and reported they check him daily. SUBJECTIVE I'm uncomfortable THERAPY DIAGNOSIS Reduced mobility-other, Muscle Weakness (generalized), General symptoms and signs-other TREATMENT INTERVENTIONS Evaluation, Gait Training (81823) Timed Code Treatment (minutes): 8 Skilled Treatment Time (minutes): 23 TRAINING AND EDUCATION PROVIDED Assistive Device Use, Benefits of In-Hospital Mobility, Gait Pattern, Reduction of Deviations, Precautions/Restricti ons, Role of Physical Therapy, Transfers THERAPEUTIC SKILLS USED Activity Dosing, Cues for Sequencing/Proper Technique for Activity, Physical Assist, Movement Facilitation FUNCTIONAL STATUS Bed Mobility Rolling: Stand By Assistance Sit to Supine: Stand By Assistance Scooting: Stand By Assistance Transfers Sit To Stand: Contact Guard Assistance Stand To Sit: Stand By Assistance Bed to Chair Gait Contact Guard Assistance Gait Device: Wheeled Walker General Deviations/Observatio ns: Step length decreased, Concha decreased, Antalgic gait Gait Distance (feet): 5-6 steps in room Stairs GOALS Patient will demonstrate progress with functional mobility to allow safe discharge to home with available support and/or physical assistance. Rehab Potential: Good Progress Toward Goals: Progressing as expected PLAN PT Frequency: 3 Times Per Week Treatment Interventions: Functional Mobility Training, Strengthening, Education Plan for Next Visit: Bed Mobility, Gait Training, Sit to Stand Transfers, Standing Tolerance SIGNATURE: Cathie Domínguez PT PATIENT NAME: Nicole Lora DATE: October 24, 2023 TIME: 12:05 PM Normal [facility] THERAPY NT HNO ID: [id number] Author: LUZMA AVALOS OTR/L Service: Occupational Therapy Author Type: Occupational Therapist Type: Therapy (PT/OT/Speech/Resp) Filed: 10/24/2023 12:02 Note Text: Occupational Therapy Evaluation Summary SERVICE DATE: 10/24/2023 SERVICE TIME: 0840 to 904 ROOM: [place] [address] OT 6 Clicks Score: 19 SOB, BLE Edema Rt > Left, Elevated troponin, Fluid Overload. Pt Presents With Multiple Recent Hospital Admits. DISCHARGE RECOMMENDATIONS Home Anticipated Discharge Needs: Physical Assist at Home, Equipment Physical Assist at Home for: Transportation, Shopping, Laundry, Cleaning Recommended Discharge Equipment: Grab Bars-Shower, Hand Held Shower, Long Handled Shoe Horn, Long Handled Sponge, Wheeled Walker, Patrol Community Service Officer, Shower Chair ASSESSMENT Response to Therapy Interventions: Good Participation in Activities Pt has gogd family support, and plans to return home following acute stay. PRECAUTIONS Bed/Chair Alarm, Fall Risk, Lines/Tubes/Drains, Other: See Comments, Fluid Restrictions, Diet Restrictions, Weight Bearing Restrictions (NPO, Left Foot Wound Per RN (Guadalupe) WBAT) Respiratory, 5L 02 this date Left Lower Extremity Weight Bearing Status: WBAT (Per RN Janice)) CURRENT HOSPITAL COURSE SOB, BLE Edema Rt > Left, Elevated troponin, Fluid Overload. Pt Presents With Multiple Recent Hospital Admits. Relevant Past Medical History: CKD 3b, chronic respiratory failure, morbid obesity, insulin dependent diabetes, left forefoot amputation HOME LIVING Patient Lives With: Self/Alone, Other: See Comment Comments: Apt 1st level In [place], [place] Assistance Available: Part-Time, Other: See Comment Comments: five children in area, Pt reported he is checked daily by his family Entry To Home: No Stairs Number Of Stairs To Bed/Bath: 0 Tub/Shower Type: WIS Laundry: Same level Equipment Owned: Grab Bars- Shower, Shower Chair, Hand Held Shower, Walker- Wheeled, Rollator, Cane, Home Oxygen, Other: See Comment (4L 02 night use) PRIOR FUNCTIONAL LEVEL Within Functional Limits, History of Falls, Other: See Comment (falls X 2 in past year) Per Pt, he was independent with ADL s, IADL's, ambulated independently prior to admit, and drives. Per Njuice, Pt has been in and out of hospitals for the past six weeks. . Pt has five children in the area, and reported they check him daily. Baseline Cognition: Oriented to self, Oriented to place, Oriented to time, Oriented to situation SUBJECTIVE my legs feel heavy COGNITION Responsiveness: Alert, Awake Follows Commands: 3-step Commands, Cueing Needed THERAPY DIAGNOSIS Reduced mobility-other, Decreased activities of daily living (ADL), Muscle Weakness (generalized) TREATMENT INTERVENTIONS Evaluation, Self Mcc Management (23951) Timed Code Treatment (minutes): 10 Skilled Treatment Time (minutes): 25 TRAINING AND EDUCATION PROVIDED Bed Mobility, Benefits of In-Hospital Mobility, Discharge Planning, Edema Management, Disease Specific Education, Energy Conservation, Expected Functional Level, Insight into Deficits, Positioning, Precautions/Restricti ons, Role of Occupational Therapy, Safety/Judgment, Standing Balance to Improve [place] with ADLs/Self-Care, Transfer - Bed to Chair, Transfer - Sit to Stand, Treatment Protocol Pt educated with role/benefit of OT services, discharge options, fall precautions, walker safety, recommended DME/AE, and provided printed material. Pt completed safe functional transfer from bed to chair with WW for support. Pt instructed with deep breathing techniques while seated at EOB, and educated with energy conservation techniques and pacing self as pertaining to ADL's. Pt educated regarding fall precautions in room, and requested Pt call staff for any assist. Pt verbalized understanding of all precautions. THERAPEUTIC SKILLS USED Activity Dosing, Cuing Verbal, Management of Critical Lines, Tubes and/or Drains, Physical Assist, Therapeutic Use of Self, Teach-Back for Education FUNCTIONAL STATUS Activities of Daily Living Assist Level Additional Information Feeding Independent Grooming Modified Independent Bathing Upper Body Modified Independent Bathing Lower Body Moderate Assistance Dressing Upper Body Stand By Assistance Dressing Lower Body Moderate Assistance Toileting Minimal Assistance Mobility Assist Level Additional Information Bed Mobility Sit To Supine: Minimal Assistance Sit to Stand Stand By Assistance Stand to Sit Stand By Assistance Bed to Chair Stand By Assistance Bed To Chair Transfer Type: Stepping Bed To Chair Transfer Equipment: Wheeled Walker Toilet/Commode Shower Functional Mobility Stand By Assistance Functional Mobility Device: Wheeled Walker GOALS Patient will demonstrate progress with self-care, cognitive and/or coping needs identified to allow safe discharge to home with available support and/or physical assistance. Rehab Po (more content not included)... Normal [facility] URINALYSIS, REFLEX MICROSCOP ICon 10-24-2023 Bacteria LM.HPF (Urine sed) [#/Area] Rare Abnormal None Seen [facility] Comment on above: Order Comment: Speci men Type: BLOOD SPECIMEN [facility] Address: [address] [place] [address] Performed By: #### 1 9123-04, #### [facility] CLIA [id number] [address] [place] [address] [place] Bilirubin Ql (U) Negative Normal Negative [facility] Comment on above: Order Comment: Speci men Type: BLOOD SPECIMEN Ordering Facility: [facility] Address: [address] [place] [address] Performed By: #### 1 9123-04, 51804-0 #### [facility] CLIA [id number] [address] [place] [address] [place] Clarity (Unsp spec) Clear Normal Clear [facility] Comment on above: Order Comment: Speci men Type: BLOOD SPECIMEN [facility] Address: [address] [place] [address] Performed By: #### 1 9123-04, #### [facility] CLIA [id number] [address] [place] [address] [place] Color (U) Light Yellow Normal Yellow [facility] Comment on above: Order Comment: Speci men Type: BLOOD SPECIMEN [facility] Address: [address] [place] [address] Performed By: #### 1 9123-04, #### [facility] CLIA [id number] [address] [place] [address] [place] Glucose Test strip (U) [Mass/Vol] Trace Normal Trace, Negative [facility] Comment on above: Order Comment: Speci men Type: BLOOD SPECIMEN [facility] Address: [address] [place] [address] Performed By: #### 1 9123-04, #### [facility] CLIA [id number] [address] [place] [address] [place] Hemoglobin Ql (U) 1+ Abnormal Negative, Trace [facility] Comment on above: Order Comment: Speci men Type: BLOOD SPECIMEN [facility] Address: [address] [place] [address] Performed By: #### 1 9123-04, 06604-9 #### [facility] CLIA [id number] [address] [place] [address] [place] Hyaline casts (Urine sed) [#/Area] 4-10 /LPF Abnormal 0 /LPF [facility] Comment on above: Order Comment: Speci men Type: BLOOD SPECIMEN [facility]ing [facility]: [facility] Address: [address] [place] [address] Performed By: #### 1 9123-9, 32754-8 #### [facility] CLIA [id number] [address] [place] [address] [place] Ketones Ql (U) Negative Normal Negative, Trace [facility] Comment on above: Order Comment: Speci men Type: BLOOD SPECIMEN [facility]: [facility] Address: [address] [place] [address] Performed By: #### 1 9123-9, 05953-7 #### [facility] CLIA [id number] [address] [place] [address] [place] Leukocyte esterase Test strip Ql (U) 500 Moira/uL Abnormal Negative, 25 Moira/uL [facility] Comment on above: Order Comment: Speci men Type: BLOOD SPECIMEN [facility]ing [facility]: [facility] Address: [address] [place] [address] Performed By: #### 1 9123-9, 96075-4 #### [facility] CLIA [id number] [address] [place] [address] [place] Nitrite Ql (U) Negative Normal Negative [facility] Comment on above: Order Comment: Speci men Type: BLOOD SPECIMEN Ordering [facility]: [facility] Address: [address] [place] [address] Performed By: #### 1 9123-9, 83340-0 #### [facility] CLIA [id number] [address] [place] [address] [place] pH (U) 5.5 [pH] Normal 5.0-8.0 [facility] Comment on above: Order Comment: Speci men Type: BLOOD SPECIMEN Ordering [facility]: [facility] Address: [address] [place] [address] Performed By: #### 1 9123-9, #### [facility] CLIA [id number] [address] [place] [address] [place] Protein (U) [Mass/Vol] 1+ Abnormal Trace, Negative [facility] Comment on above: Order Comment: Speci men Type: BLOOD SPECIMEN Ordering [facility]: [facility] Address: [address] [place] [address] Performed By: #### 1 239, 25696-3 #### [facility] CLIA [id number] [address] [place] [address] [place] RBC LM.HPF (Urine sed) [#/Area] /[HPF] Abnormal 0-3 /HPF [facility] Comment on above: Order Comment: Speci men Type: BLOOD SPECIMEN Ordering [facility] Address: [address] [place] [address] Performed By: #### 1 91239, #### [facility] CLIA [id number] [address] [place] [address] [place] Specific gravity (U) [Rel density] 1.015 Normal 1.005-1.030 [facility] Comment on above: Order Comment: Speci men Type: BLOOD SPECIMEN [facility]ing [facility] Address: [address] [place] [address] Performed By: #### 1 91239, #### [facility] CLIA [id number] [address] [place] [address] [place] Urobilinogen Ql (U) Normal Normal Normal [facility] Comment on above: Order Comment: Speci men Type: BLOOD SPECIMEN [facility] Address: [address] [place] [address] Performed By: #### 1 91239, #### [facility] CLIA [id number] [address] [place] [address] [place] WBC LM.HPF (Urine sed) [#/Area] 11-25 /HPF Abnormal 0-5 /HPF [facility] Comment on above: Order Comment: Speci men Type: BLOOD SPECIMEN Ordering Facility: [facility] Address: [facility] [place] [address] Performed By: #### 1 9123-9, 14626-3 #### [facility] CLIA [id number] [address] [place] [address] [place] US KIDNEY/BLADDERon 10-24-19 US KIDNEY/BLADDER * * *Final Report* * * DATE OF EXAM: Oct 24 2023 4:59PM FVU 1055 - US KIDNEY/BLADDER / PROCEDURE REASON: Kidney failure, acute * * * * Physician Interpretation * * * * EXAMINATION: RENAL ULTRASOUND CLINICAL HISTORY: Renal failure TECHNIQUE: Sonography of the kidneys and urinary bladder was performed. Images were obtained and stored in a permanent archive. MQ: UR_1 COMPARISON: None RESULT: Right Kidney: -Renal length: 13.1 cm -Parenchyma: Isoechoic Normal parenchymal thickness. -Collecting system: No hydronephrosis. -Calculus: No echogenic, shadowing calculus. -Lesion: None. Left Kidney: -Renal length: 13.4 cm -Parenchyma: Isoechoic Normal parenchymal thickness. -Collecting system: No hydronephrosis. -Calculus: No echogenic, shadowing calculus. -Lesion: None. Bladder: Contracted with a Elliott catheter in place. IMPRESSION: No hydronephrosis identified. Otherwise limited assessment especially on the left. Crab Steamer: SAM Transcribe Date/Time: Oct 25 2023 7:19A Dictated by : KASHIF PIERSON MD This examination was interpreted and the report reviewed and electronically signed by: KASHIF PIERSON MD on Oct 25 2023 7:21AM EST [id number] N Normal [facility] HEALTHon 10-23-2023 ALLIED HEALTH HNO ID: [id number] Author: LI WEN RDMS Service: Radiology Author Type: Hammerer Helper Type: Allied Health Filed: 10/23/2023 18:11 Note Text: Radiology Service Progress Note PATIENT NAME: Nicole Lora DATE OF SERVICE: October 23, 2023 TIME: 6:10 PM PATIENT IDENTITY VERIFICATION COMPLETED USING TWO (2) IDENTIFIERS: Name and Date of confirmed by patient verbally and Name and Date of confirmed by identification band. FALL SCREENING: Has the patient had 2 falls in the last year or 1 fall with injury or currently using an Ambulatory Assistive Device (Walker, Cane, Wheelchair, Crutches, etc.)? Emergency Room Patient: Screened in ED PATIENT GENDER DATA: Male PATIENT RELEVANT IMPLANT DATA REVIEWED: Not Applicable PATIENT PRESENTS WITH AN IMPLANTABLE OR ATTACHED GEOPHYSICAL LABORATORY DIRECTOR: No RADIOLOGY DEPARTMENT: Ultrasound PERIPHERAL IV DATA: Not applicable SIGNED BY: Li Wen RDMS October 23, 2023 6:10 PM [facility] ALLIED HEALTH HNO ID: [id number] Author: RUBINA NINO RT(Zarina) Service: Radiology Author Type: Technologist Type: Allied Health Filed: 10/23/2023 17:32 Note Text: Radiology Service Progress Note PATIENT NAME: Nicole Lora DATE OF SERVICE: October 23, 2023 TIME: 5:32 PM PATIENT IDENTITY VERIFICATION COMPLETED USING TWO (2) IDENTIFIERS: Name and Date of confirmed by patient verbally and Name and Date of confirmed by identification band. FALL SCREENING: Has the patient had 2 falls in the last year or 1 fall with injury or currently using an Ambulatory Assistive Device (Walker, Cane, Wheelchair, Crutches, etc.)? Emergency Room Patient: Screened in ED PATIENT GENDER DATA: Male PATIENT RELEVANT IMPLANT DATA REVIEWED: Not Applicable PATIENT PRESENTS WITH AN IMPLANTABLE OR ATTACHED GEOPHYSICAL LABORATORY DIRECTOR: No RADIOLOGY DEPARTMENT: General X-ray: Exam(s) Completed: Chest X-Ray PERIPHERAL IV DATA: Not applicable SIGNED BY: RT Kena(R) October 23, 2023 5:32 PM [facility] CBC W Auto Differential pane l (Bld)on 10-23-2023 Basophils (Bld) [#/Vol] 10*3/uL Normal <0.11 [facility] Comment on above: Order Comment: Speci men Type: BLOOD SPECIMEN Ordering Facility: [facility] Address: [address] [place] [address] Performed By: #### 1 9123-9, 91197-8 #### [facility] CLIA [id number] [address] [place] [address] [place] Basophils/100 WBC (Bld) 0.3 % Normal [facility] Comment on above: Order Comment: Speci men Type: BLOOD SPECIMEN Ordering Facility: [facility] Address: [address] [place] [address] Performed By: #### 1 9123-04, #### [facility] CLIA [id number] [address] [place] [address] [place] Differential cell count method Nom (Bld) Auto Normal [facility] Comment on above: Order Comment: Speci men Type: BLOOD SPECIMEN Ordering Facility: [facility] Address: [address] [place] [address] Performed By: #### 1 9123-04, #### [facility] CLIA [id number] [address] [place] [address] [place] Eosinophils (Bld) [#/Vol] 0.27 10*3/uL Normal <0.46 [facility] Comment on above: Order Comment: Speci men Type: BLOOD SPECIMEN Ordering Facility: [facility] Address: [address] [place] [address] Performed By: #### 1 9123-04, #### [facility] CLIA [id number] [address] [place] [address] [place] Eosinophils/100 WBC (Bld) 3.8 % Normal [facility] Comment on above: Order Comment: Speci men Type: BLOOD SPECIMEN Ordering Facility: [facility] Address: [address] [place] [address] Performed By: #### 1 9123-04, #### [facility] CLIA [id number] [address] [place] [address] [place] Erythrocyte distribution width (RBC) [Ratio] 16.3 % High 11.5-15.0 [facility] Comment on above: Order Comment: Speci men Type: BLOOD SPECIMEN Ordering Facility: [facility] Address: [address] [place] [address] Performed By: #### 1 23, #### [facility] CLIA [id number] [address] [place] [address] [place] Hematocrit (Bld) [Volume fraction] 40.6 % Normal 39.0-51.0 [facility] Comment on above: Order Comment: Speci men Type: BLOOD SPECIMEN Ordering Facility: [facility] Address: [address] [place] [address] Performed By: #### 1 9123-9, 72819-0 #### [facility] CLIA [id number] [address] [place] [address] [place] Hemoglobin (Bld) [Mass/Vol] 12.4 g/dL Low 13.0-17.0 [facility] Comment on above: Order Comment: Speci men Type: BLOOD SPECIMEN Ordering Facility: [facility] Address: [address] [place] [address] Performed By: #### 1 9123-9, 68073-0 #### [facility] CLIA [id number] [address] [place] [address] [place] Immature granulocytes (Bld) [#/Vol] 0.04 10*3/uL Normal <0.10 [facility] Comment on above: Order Comment: Speci men Type: BLOOD SPECIMEN Ordering Facility: [facility] Address: [address] [place] [address] Performed By: #### 1 9123-9, 40266-8 #### [facility] CLIA [id number] [address] [place] [address] [place] Immature granulocytes/100 WBC (Bld) 0.6 % Normal [facility] Comment on above: Order Comment: Speci men Type: BLOOD SPECIMEN Ordering Facility: [facility] Address: [address] [place] [address] Performed By: #### 1 9123-9, 48658-2 #### [facility] CLIA [id number] [address] [place] [address] [place] Lymphocytes (Bld) [#/Vol] 1.04 10*3/uL Normal 1.00-4.00 [facility] Comment on above: Order Comment: Speci men Type: BLOOD SPECIMEN Ordering Facility: [facility] Address: [address] [place] [address] Performed By: #### 1 23-9, #### [facility] CLIA [id number] [address] [place] [address] [place] Lymphocytes/100 WBC (Bld) 14.7 % Normal [facility] Comment on above: Order Comment: Speci men Type: BLOOD SPECIMEN Ordering Facility: [facility] Address: [address] [place] [address] Performed By: #### 1 9123-04, #### [facility] CLIA [id number] [address] [place] [address] [place] MCH (RBC) [Entitic mass] 27.1 pg Normal 26.0-34.0 [facility] Comment on above: Order Comment: Speci men Type: BLOOD SPECIMEN Ordering Facility: [facility] Address: [address] [place] [address] Performed By: #### 1 9123-04, #### [facility] CLIA [id number] [address] [place] [address] [place] MCHC (RBC) [Mass/Vol] 30.5 g/dL Normal 30.5-36.0 [facility] Comment on above: Order Comment: Speci men Type: BLOOD SPECIMEN Ordering Facility: [facility] Address: [address] [place] [address] Performed By: #### 1 239, #### [facility] CLIA [id number] [address] [place] [address] [place] MCV (RBC) [Entitic vol] 88.6 fL Normal 80.0-100.0 [facility] Comment on above: Order Comment: Speci men Type: BLOOD SPECIMEN Ordering Facility: [facility] Address: [address] [place] [address] Performed By: #### 1 239, 75801-0 #### [facility] CLIA [id number] [address] [place] [address] [place] Monocytes (Bld) [#/Vol] 0.74 10*3/uL Normal <0.87 [facility] Comment on above: Order Comment: Speci men Type: BLOOD SPECIMEN Ordering Facility: [facility] Address: [address] [place] [address] Performed By: #### 1 239, #### [facility] CLIA [id number] [address] [place] [address] [place] Monocytes/100 WBC (Bld) 10.4 % Normal [facility] Comment on above: Order Comment: Speci men Type: BLOOD SPECIMEN Ordering Facility: [facility] Address: [address] [place] [address] Performed By: #### 1 9123-04, #### [facility] CLIA [id number] [address] [place] [address] [place] Neutrophils (Bld) [#/Vol] 4.98 10*3/uL Normal 1.45-7.50 [facility] Comment on above: Order Comment: Speci men Type: BLOOD SPECIMEN Ordering Facility: [facility] Address: [address] [place] [address] Performed By: #### 1 239, #### [facility] CLIA [id number] [address] [place] [address] [place] Neutrophils/100 WBC (Bld) 70.2 % Normal [facility] Comment on above: Order Comment: Speci men Type: BLOOD SPECIMEN Ordering Facility: [facility] Address: [address] [place] [address] Performed By: #### 1 9123, #### [facility] CLIA [id number] [address] [place] [address] [place] Nucleated RBC (Bld) [#/Vol] 10*3/uL Normal <0.01 [facility] Comment on above: Order Comment: Speci men Type: BLOOD SPECIMEN Ordering Facility: [facility] Address: [address] [place] [address] Performed By: #### 1 91239, 48970-7 #### [facility] CLIA [id number] [address] [place], [place] [id number] [place] Nucleated RBC/100 WBC (Bld) [Ratio] 0.0 /100 WBC Normal [facility] Comment on above: Order Comment: Speci men Type: BLOOD SPECIMEN Ordering Facility: [facility] Address: [address] [place] [address] Performed By: #### 1 9123-9, 04730-8 #### [facility] CLIA [id number] [address] [place] [address] [place] Platelet mean volume (Bld) [Entitic vol] 8.9 fL Low 9.0-12.7 [facility] Comment on above: Order Comment: Speci men Type: BLOOD SPECIMEN Ordering Facility: [facility] Address: [address] [place] [address] Performed By: #### 1 9123-9, 52005-9 #### [facility] CLIA [id number] [address] [place] [address] [place] Platelets (Bld) [#/Vol] 220 10*3/uL Normal 150-400 [facility] Comment on above: Order Comment: Speci men Type: BLOOD SPECIMEN Ordering Facility: [facility] Address: [address] [place] [address] Performed By: #### 1 9123-9, 73948-6 #### [facility] CLIA [id number] [address] [place] [address] [place] RBC (Bld) [#/Vol] 4.58 10*6/uL Normal 4.20-6.00 [facility] Comment on above: Order Comment: Speci men Type: BLOOD SPECIMEN Ordering Facility: [facility] Address: [address] [place] [address] Performed By: #### 1 9123-9, 16435-5 #### [facility] CLIA [id number] [address] [place] [address] [place] WBC (Bld) [#/Vol] 7.09 10*3/uL Normal 3.70-11.00 [facility] Comment on above: Order Comment: Speci men Type: BLOOD SPECIMEN Ordering Facility: [facility] Address: [address] [place] [address] Performed By: #### 1 9123-9, 84861-5 #### [facility] CLIA [id number] [address] [place], [place] [address] [place] [facility] Comprehensive metabolic 2000 panelon 10-23-2023 Albumin [Mass/Vol] 3.5 g/dL Low 3.9-4.9 [facility] Comment on above: Order Comment: Speci men Type: BLOOD SPECIMEN Ordering Facility: [facility] Address: [address] [place] [address] Performed By: #### H STNT, 3016-3, 10616-5, 00953-2 #### [facility] CLIA [id number] [address] [place] [address] [place] ALP [Catalytic activity/Vol] 112 U/L Normal 38-113 [facility] Comment on above: Order Comment: Speci men Type: BLOOD SPECIMEN Ordering Facility: [facility] Address: [address] [place] [address] Performed By: #### H STNT, 3016-3, 24866-5, 90979-2 #### [facility] CLIA [id number] [address] [place] [address] ALT [Catalytic activity/Vol] 19 U/L Normal 10-54 [facility] Comment on above: Order Comment: Speci men Type: BLOOD SPECIMEN Ordering Facility: [facility] Address: [address] [place] [address] Performed By: #### H STNT, 3016-3, 03871-0, 03891-3 #### [facility] CLIA [id number] [address] [place] [address] [place] Anion gap [Moles/Vol] 11 mmol/L Normal 9-18 [facility] Comment on above: Order Comment: Speci men Type: BLOOD SPECIMEN Ordering Facility: [facility] Address: [address] [place] [address] Performed By: #### H STNT, 3016-3, 20381-8, 83774-3 #### [facility] CLIA [id number] [address] [place] [address] [place] AST [Catalytic activity/Vol] 21 U/L Normal 14-40 [facility] Comment on above: Order Comment: Speci men Type: BLOOD SPECIMEN Ordering Facility: [facility] Address: [address] [place] [address] Performed By: #### H STNT, 3016-3, 59532-5, 56202-6 #### [facility] CLIA [id number] [address] [place] [address] [place] Bilirubin [Mass/Vol] 0.4 mg/dL Normal 0.2-1.3 [facility] Comment on above: Order Comment: Speci men Type: BLOOD SPECIMEN Ordering Facility: [facility] Address: [address] [place] [address] Performed By: #### H STNT, 3016-3, 21274-4, 80330-6 #### [facility] CLIA [id number] [address] [place] [address] [place] Calcium [Mass/Vol] 8.6 mg/dL Normal 8.5-10.2 [facility] Comment on above: Order Comment: Speci men Type: BLOOD SPECIMEN Ordering Facility: [facility] Address: [address] [place] [address] Performed By: #### H STNT, 3016-3, 78834-0, 24372-7 #### [facility] CLIA [id number] [address] [place] [address] [place] Chloride [Moles/Vol] 100 mmol/L Normal 97-105 [facility] Comment on above: Order Comment: Speci men Type: BLOOD SPECIMEN Ordering Facility: [facility] Address: [address] [place] [address] Performed By: #### H STNT, 3016-3, 72585-1, 59560-5 #### [facility] CLIA [id number] [address] [place] [address] [place] CO2 [Moles/Vol] 28 mmol/L Normal 22-30 [facility] Comment on above: Order Comment: Speci men Type: BLOOD SPECIMEN Ordering Facility: [facility] Address: [address] [place] [address] Performed By: #### H STNT, 3016-3, 34154-1, 76142-9 #### [facility] CLIA [id number] [address] [place] [address] [place] Creatinine [Mass/Vol] 2.00 mg/dL High 0.73-1.22 [facility] Comment on above: Order Comment: Speci men Type: BLOOD SPECIMEN Ordering Facility: [facility] Address: [address] [place] [address] Performed By: #### H STNT, 3016-3, 59198-0, 28213-4 #### [facility] CLIA [id number] [address] [place] [address] [place] Creatinine and Glomerular filtration rate.predicted panel (S/P/Bld) 37 mL/min/1.73m??? Low >=60 [facility] Comment on above: Order Comment: Speci men Type: BLOOD SPECIMEN Ordering Facility: [facility] Address: [address] [place] [address] Result Comment: Meredith mated Glomerular Filtration Rate (eGFR) is calculated using the 2020 CKD-EPI creatinine equation. This equation utilizes serum creatinine, sex, and age as parameters. The creatinine assay has traceable calibration to isotope dilution-mass spectrometry. Refer to KDIGO guidelines for clinical interpretation. In patients with unstable renal function, e.g. those with acute kidney injury, the eGFR may not accurately reflect actual GFR. Performed By: #### H STNT, 3016-3, 14043-7, 29069-8 #### [facility] CLIA [id number] [address] [place] [address] [place] Glucose [Mass/Vol] 138 mg/dL High 74-99 [facility] Comment on above: Order Comment: Kentoni chapis Type: BLOOD SPECIMEN Ordering Facility: [facility] Address: [address] [place] [address] Result Comment: The [place] [employer] (ADA) provides guidance for cutoff [...] Standards of Medical Care in Diabetes 2016, [place] [employer]. Diabetes Care. 2016.39(Suppl 1). Performed By: #### H STNT, 3016-3, 94799-2, 29781-3 #### [facility] CLIA [id number] [address] [place] [address] [place] Potassium [Moles/Vol] 4.6 mmol/L Normal 3.7-5.1 [facility] Comment on above: Order Comment: [place] Type: BLOOD SPECIMEN Ordering Facility: [facility] Address: [address] [place] [address] Performed By: #### H STNT, 6-3, 76469-2, 28807-1 #### [facility] CLIA [id number] [address] [place] [address] [place] Protein [Mass/Vol] 6.5 g/dL Normal 6.3-8.0 [facility] Comment on above: Order Comment: [place] Type: BLOOD SPECIMEN Ordering Facility: [facility] Address: [address] [place] [address] Performed By: #### H STNT, 6-3, 42085-7, 34608-1 #### [facility] CLIA [id number] [address] [place] [address] [place] Sodium [Moles/Vol] 139 mmol/L Normal 136-144 [facility] Comment on above: Order Comment: Kentoni chapis Type: BLOOD SPECIMEN Ordering Facility: [facility] Address: [address] [place] [address] Performed By: #### H STNT, 3016-3, 64282-1, 65865-3 #### [facility] CLIA [id number] [place] Urea nitrogen [Mass/Vol] 60 mg/dL High 9-24 [facility] Comment on above: Order Comment: Speci men Type: BLOOD SPECIMEN Ordering Facility: [facility] Address: [address] [place] [address] [place] [address] Performed By: #### H STNT, 3016-3, 86298-1, 27330-9 #### [facility] CLIA [id number] [address] [place] [id number] [facility] ECG COMPLETEon 10-23-2023 ECG COMPLETE Ventricular Rate : 7 7 BPM Atrial Rate : 78 BPM P-R Interval : 180 ms QRS Duration : 97 ms Q-T Interval : 389 ms QTC Calculation(Bazett) : 441 ms Calculated P Buckhorn : 53 degrees Calculated R Buckhorn : -76 degrees Calculated T Buckhorn : 65 degrees Sinus rhythm Left anterior fascicular block Abnormal ECG no stemi Confirmed by DARNELL YIN MD ([id number]), editor managing director JACQUELINE ROSALES ([id number]) on 10/24/2023 10:36:37 AM NAME : NICOLE LORA PID : [id number] : 1960 Gender : Male Race : ORD : [id number] Procedure Date : Oct 23 2023 20:16:04 Edit Date : Oct 24 2023 10:36:39 Diagnosis: Sinus rhythm Left anterior fascicular block Abnormal ECG no stemi Confirmed by DARNELL YIN MD ([id number]), editor managing director JACQUELINE ROSALES ([id number]) on 10/24/2023 10:36:37 AM Test Reason : Other - Specify Location : 402 : FVED [id number] Overread By : DARNELL YIN MD Edited By : JACQUELINE ROSALES Referred By : , Acquired by : [id number], [facility] ED NOTEon 10-23-2023 ED NOTE HNO ID: [id number] Author: PER HARDWICK RN Service: ? 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 He has been in and out of the hospital for the past 6 weeks at [facility]. He was initially found to be in renal failure due to urinary retention. He has had a chronic elliott in since then and reports having approximately 2L of output per day. In the last few days he has had significantly worsening swelling of both legs, right worse than left. He also reports pain in both legs. Denies any worsening SOB. No chest pain. Daughter brought him to because she doesn't feel he is receiving appropriate care at OSH. PAST MEDICAL HISTORY Diagnosis Date - IDDM (insulin dependent diabetes mellitus) (HCC) - MRSA infection PAST SURGICAL HISTORY Procedure Laterality Date - AMPUTAT OF TOEANDMETATARSAL No family history on file. Social History Tobacco Use - Smoking status: Never - Smokeless tobacco: Not on file Substance and Sexual Activity - Alcohol use: No - Drug use: No - Sexual activity: Not on file ALLERGIES Allergen Reactions - Penicillins Rash No current facility-administered medications on file prior to encounter. Current Outpatient Medications on File Prior to Encounter Medication Sig - insulin regular human (HUMULIN R) 100 unit/mL injection Inject 15 Units subcutaneously three times daily before meals. - INSULIN GLARGINE,HUM.REC.ANLO G (LANTUS SOLOSTAR SUBCUTANEOUS) Inject 40 Units subcutaneously daily at bedtime. - ASPIRIN (ASPIR-81 ORAL) Take 81 mg by mouth once daily. - sitaGLIPtin-metFORMIN (JANUMET) 50-1,000 mg per tablet Take 1 tablet by mouth twice daily with meals. Review of Systems Constitutional: Negative for chills and fever. HENT: Negative for congestion, rhinorrhea and sore throat. Eyes: Negative for visual disturbance. Respiratory: Negative for cough and shortness of breath. Cardiovascular: Positive for leg swelling. Negative for chest pain. Gastrointestinal: Negative for abdominal pain, diarrhea, nausea and vomiting. Genitourinary: Negative for dysuria and hematuria. Musculoskeletal: Negative for back pain. Skin: Negative for rash and wound. Neurological: Negative for dizziness, numbness and headaches. All other systems reviewed and are negative. Physical Exam Vitals BP Pulse Temp Temp src Resp SpO2 Weight Height 10/23/23 1601 10/23/23 1601 10/23/23 1601 -- 10/23/23 1601 10/23/23 1601 10/23/23 1559 10/23/23 1559 148/61 73 36.5 ?C (97.7 ?F) 20 (!) 94 % (!) 140.6 kg (310 lb) 1.829 m (6') Physical Exam Vitals and nursing note reviewed. Constitutional: General: He is not in acute distress. Appearance: He is well-developed. He is not toxic-appearing. Comments: Well appearing, in no distress HENT: Head: Normocephalic and atraumatic. Eyes: Extraocular Movements: Extraocular movements intact. Conjunctiva/sclera: Conjunctivae normal. Cardiovascular: Rate and Rhythm: Normal rate and regular rhythm. Heart sounds: Normal heart sounds. Comments: 1+ DP pulse b/l Pulmonary: Effort: Pulmonary effort is normal. No respiratory distress. Breath sounds: No wheezing. Comments: Diminished breath sounds b/l Abdominal: Palpations: Abdomen is soft. Tenderness: There is no abdominal tenderness. There is no guarding or rebound. Comments: Elliott catheter noted Musculoskeletal: Cervical back: Normal range of motion and neck supple. Comments: 4+ pitting edema to b/l LEs up to thighs. Scattered bullae noted to b/l LEs. No erythema or warmth. Chronic skin changes Skin: General: Skin is warm and dry. Neurological: General: No focal deficit present. Mental Status: He is alert and oriented to person, place, and time. Psychiatric: Behavior: Behavior normal. Diagnostic Testing ED Labs Ordered and Reviewed COMP METABOLIC PANEL - Abnormal; Notable for the following components: Result Value Ref Range Albumin 3.5 (*) 3.9 - 4.9 g/dL Glucose 138 (*) 74 - 99 mg/dL BUN 60 (*) 9 - 24 mg/dL Creatinine 2.00 (*) 0.73 - 1.22 mg/dL Estimated Glomerular Filtration Rate 37 (*) >=60 mL/min/1.73m? All other components within normal limits HIGH SENSITIVITY TROPONIN T - Abnormal; Notable for the following components: MARINA High Sensitivity 172 (*) <12 ng/L All other components within normal limits NT PRO BNP - Abnormal; Notable for the following components: NT Pro BNP 1,124 (*) <125 pg/mL All other components within normal limits CBC + DIFF - Abnormal; Notable for the (more content not included)... Normal [facility] ED Triage Noteon 10-23-2023 ED Triage Note HNO ID: [id number] Author: OTONIEL ALBERTS MD Service: ? Author Type: Physician Type: ED Triage Notes Filed: 10/23/2023 15:59 Note Text: ED INTAKE NOTE Patient Name: Nicole Lora Service Date: 10/23/23 BRIEF HPI: 63 yo M presenting to the ED with b/l LE swelling. Wears 4L of O2 at home. Denies any CP, or SOB. BRIEF EXAM: Awake and Alert INTAKE WORKUP: Bloodwork: CBC CMP Cardiac Enzyme BNP CXR No diagnosis found. SIGNATURE: Otoniel Alberts MD [facility] HIGH SENSITIVITY TROPONIN To n 10-23-2023 Troponin T.cardiac High sensitivity method [Mass/Vol] 167 ng/L High <12 [facility] Comment on above: Order Comment: [place] Type: BLOOD SPECIMENOrdering Facility: [facility] Address: [address] [place] [address] Result Comment: When assessing risk for acute coronary syndromes: In patients undergoing blood draw greater than or equal to 2 hours from symptom onset, with history of very low to moderate risk and non-ischemic ECG, an initial hs-Troponin T less than 12 ng/L AND a 1 hour delta hs-Troponin T less than 3 ng/L should be considered very low risk for 30 day MACE. Performed By: #### H STNT ####[facility] [id number] [place] [address] [place] Troponin T.cardiac High sensitivity method [Mass/Vol] 172 ng/L High <12 [facility] Comment on above: Order Comment: [place] Type: BLOOD SPECIMEN Ordering Facility: [facility] Address: [address] [place] [address] Result Comment: When assessing risk for acute coronary syndromes: In patients undergoing blood draw greater than or equal to 2 hours from symptom onset, with history of very low to moderate risk and non-ischemic ECG, an initial hs-Troponin T less than 12 ng/L AND a 1 hour delta hs-Troponin T less than 3 ng/L should be considered very low risk for 30 day MACE. Performed By: #### H STNT, 3016-3, 30683-0, 72126-7 #### [facility] CLIA [id number] [place] NT-proBNP SerPl-mCncon 10-22 Natriuretic peptide.B prohormone N-Terminal [Mass/Vol] 1124 pg/mL High <125 [facility] Comment on above: Order Comment: [place] Type: BLOOD SPECIMEN Ordering Facility: [facility] Address: [address] [place] [address] Performed By: #### H STNT, 3016-3, 84770-1, 44820-9 #### [facility] CLIA [id number] [place] [address] [place] TSH SerPl-aCncon 10-23-2023 TSH Qn 2.630 m[IU]/L Normal 0.270-4.200 [facility] Comment on above: Order Comment: [place] Type: BLOOD SPECIMEN Ordering Facility: [facility] Address: [address] [place] [address] Performed By: #### H STNT, 3016-3, [id number], [id number] #### [facility] CLIA [id number] [place] [address] [place] US DVT LOWER BILon US DVT LOWER EDWARD * * *Final Report* * * DATE OF EXAM: Oct 23 2023 6:13PM FVU 1005 - US DVT LOWER EDWARD / PROCEDURE REASON: Leg deep vein thrombosis (DVT) suspected * * * * Physician Interpretation * * * * EXAMINATION: RIGHT AND LEFT LOWER EXTREMITY DEEP VENOUS ULTRASOUND WITH DOPPLER IMAGING CLINICAL HISTORY: Leg swelling TECHNIQUE: Grayscale with compression maneuvers, color Doppler and spectral Doppler imaging of the right and left proximal deep veins was performed. Grayscale with compression maneuvers of the right and left peroneal and posterior tibial veins was performed. The right and left great and small saphenous veins were evaluated at their insertion to the deep system. Images were obtained and stored in a permanent archive. MQ: [id number] COMPARISON: None RESULT: RIGHT LOWER EXTREMITY PROXIMAL DEEP VEINS Distal External Iliac, Common Femoral and Proximal Profunda Veins: Compression: Normal Doppler: Normal, spontaneous respirophasic flow. Normal response to augmentation. Femoral vein: Compression: Normal Doppler: Normal, spontaneous respirophasic flow. Normal response to augmentation. Popliteal vein: Compression: Normal Doppler: Normal, spontaneous respirophasic flow. Normal response to augmentation. CALF DEEP VEINS: The calf veins are not well visualized. Gastrocnemius and Soleal veins: Not imaged. SUPERFICIAL VEINS Great saphenous: Patent and compressible at insertion into common femoral vein; not otherwise assessed. Small Saphenous: Patent and compressible in the proximal calf, not otherwise assessed. LEFT LOWER EXTREMITY PROXIMAL DEEP VEINS Distal External Iliac, Common Femoral and Proximal Profunda Veins: Compression: Normal Doppler: Normal, spontaneous respirophasic flow. Normal response to augmentation. Femoral vein: Compression: Normal Doppler: Normal, spontaneous respirophasic flow. Normal response to augmentation. Popliteal vein: Compression: Normal Doppler: Normal, spontaneous respirophasic flow. Normal response to augmentation. CALF DEEP VEINS: The calf veins are not well visualized. Gastrocnemius and Soleal veins: Not imaged. SUPERFICIAL VEINS Great saphenous: Patent and compressible at insertion into common femoral vein; not otherwise assessed. Small Saphenous: Patent and compressible in the proximal calf, not otherwise assessed. IMPRESSION: NEGATIVE STUDY FOR PROXIMAL DVT IN THE LEFT AND RIGHT LOWER EXTREMITIES. NONDIAGNOSTIC STUDY FOR CALF DVT IN THE LEFT AND RIGHT LOWER EXTREMITIES. NEGATIVE STUDY FOR SUPERFICIAL THROMBOPHLEBITIS IN THE IMAGED SEGMENTS OF THE LEFT AND RIGHT LOWER EXTREMITIES. Crab Steamer: SAM Transcribe Date/Time: Oct 23 2023 6:44P Dictated by : PRESTON GONZALEZ MD This examination was interpreted and the report reviewed and electronically signed by: PRESTON GONZALEZ MD on Oct 23 2023 6:47PM EST [id number] Normal [facility] XR CHEST 1V FRONTAL PORTon 0 10-23-2023 XR CHEST 1V FRONTAL PORT * * *Final Report* * * DATE OF EXAM: Oct 23 2023 5:20PM FVX [id number] - XR CHEST 1V FRONTAL PORT / PROCEDURE REASON: Pulmonary Edema * * * * Physician Interpretation * * * * EXAMINATION: CHEST RADIOGRAPH (PORTABLE SINGLE VIEW AP) Exam Date/Time: 10/23/2023 5:20 PM CLINICAL HISTORY: Pulmonary Edema. swelling. MQ: XCPR_5 Comparison: RESULT: Lines, tubes, and devices: None. Lungs and pleura: A patchy linear nodular density density is noted in the left lung base. There is cephalization the pulmonary vessels. Mildly increased reticular markings are noted. No sizable pleural effusions are identified. Cardiomediastinal silhouette: The cardiac silhouette appears mildly prominent which situated by magnification related to the AP technique. The right are aortic arch is noted which is an anatomical variant. Other: Degenerative changes are noted in the thoracic spine. IMPRESSION: 1. Patchy linear nodular opacity near the left lung base, which is of uncertain chronicity. Possible considerations include an area of infiltrate, atelectasis or scarring. Recommend short interval follow-up radiograph to ensure clearing. 2. Findings suggestive of pulmonary venous hypertension and possible mild pulmonary edema. Crab Steamer: PSCB Transcribe Date/Time: Oct 23 2023 5:22P Dictated by : RADHA KONG MD This examination was interpreted and the report reviewed and electronically signed by: RADHA KONG MD on Oct 23 2023 5:25PM EST [id number] Normal [facility] Pre-Certification Formon Pre-Certification Form [id number] .00TIFF Normal [facility] Ambulatory Visit Summaryon 0 10-18-2023 Ambulatory Visit Summary Normal [facility] Patient Educationon 10-18-19 Patient Education Normal [facility] Urology Office/Clinic Noteon 10-18-2023 Urology Office/Clinic Note Normal [facility] Comment on above: Result Comment: Elec tronically Signed By: Basia Claire.samir\Date and Time Signed: 10/18/23 09:42 EST\.br\Electronically Co-Signed By: Bailey Vásquez\.br\Date and Time Co-Signed: 10/18/23 09:44 EST\.br\Electronically Co-Signed By: Taz THOMAS MD\.br\Date and Time Co-Signed: 10/18/23 15:44 EST Consent for Treatmenton 09-22 Consent for Treatment [id number] .00TIFF Normal [facility] Discharge Instructionson Discharge Instructions [id number] .00TIFF Normal [facility] ED Clinical Summaryon 2023 ED Clinical Summary Normal [facility] ED Note-Physicianon 10-15-19 ED Note-Physician Normal [facility] Comment on above: Result Comment: Elec tronically Signed By: Mone Martinez DO\.br\Date and Time Signed: 10/15/23 06:52 EST ED Patient Education Noteon 10-15-2023 ED Patient Education Note Normal [facility] ED Patient Summaryon 024 ED Patient Summary Normal [facility] Calcium [Mass/volume] in Ser um or PlasmaOrdered By: Yesi Murphy on 10-13-2023 Calcium [Mass/Vol] 8.2 mg/dL 8.6-10.3 [facility] Carbon dioxide, total [Moles /volume] in Serum or PlasmaOrdered By: Yesi Murphy on 10-13-2023 CO2 [Moles/Vol] 33.7 mmol/L 21.0-31.0 [facility] Chloride [Moles/volume] in S raymond or PlasmaOrdered By: Yesi Murphy on 10-13-2023 Chloride [Moles/Vol] 100 mmol/L 98-107 [facility] Creatinine [Mass/volume] in Serum or PlasmaOrdered By: Yesi Murphy on 10-13-2023 Creatinine [Mass/Vol] 1.91 mg/dL 0.70-1.30 [facility] Glucose [Mass/volume] in Ser um or PlasmaOrdered By: Yesi Murphy on 10-13-2023 Glucose [Mass/Vol] 250 mg/dL 70-100 [facility] Comment on above: ADA recommended refe rence rangeRandom Glucose Reference Range is dependent on time and content of last meal. Glucose of more than 200 mg/dL in a nonstressed, ambulatory subject supports the diagnosis of Diabetes Mellitus. No Panel InformationOrdered By: Yesi Murphy on 10-13-2023 Estimated GFR (CKD-EPI) 38.661 mL/Min [facility] Creatinine Clearance (Chem N/A [facility] Potassium [Moles/volume] in Serum or PlasmaOrdered By: Yesi Murphy on 10-13-2023 Potassium [Moles/Vol] 4.3 mmol/L 3.5-5.1 [facility] Serum or plasma anion gap de terminationOrdered By: Yesi Murphy on 10-13-2023 Anion gap [Moles/Vol] 10.6 mmol/L 6.0-15.0 [facility] Sodium [Moles/volume] in Ser um or PlasmaOrdered By: Yesi Murphy on 10-13-2023 Sodium [Moles/Vol] 140 mmol/L 136-145 [facility] Urea nitrogen [Mass/volume] in Serum or PlasmaOrdered By: Yesi Murphy on 10-13-2023 Urea nitrogen [Mass/Vol] 52 mg/dL 7-25 [facility] Albumin [Mass/volume] in Ser um or Plasma by Bromocresol green (BCG) dye binding methoOrdered By: Gigi Cooper on 10-12-2023 Albumin BCG dye [Mass/Vol] 3.6 g/dL 3.5-5.7 [facility] Calcium [Mass/volume] in Ser um or PlasmaOrdered By: Gigi Cooper on 10-12-2023 Calcium [Mass/Vol] 8.8 mg/dL 8.6-10.3 [facility] Carbon dioxide, total [Moles /volume] in Serum or PlasmaOrdered By: Gigi Cooper on 10-12-2023 CO2 [Moles/Vol] 32.8 mmol/L 21.0-31.0 [facility] Chloride [Moles/volume] in S raymond or PlasmaOrdered By: Gigi Cooper on 10-12-2023 Chloride [Moles/Vol] 96 mmol/L 98-107 [facility] Creatinine [Mass/volume] in Serum or PlasmaOrdered By: Gigi Cooper on 10-12-2023 Creatinine [Mass/Vol] 1.95 mg/dL 0.70-1.30 [facility] Glucose Glucometer (BldC) [M ass/Vol]Ordered By: Yesi Murphy on 10-12-2023 Glucose [Mass/Vol] 224 mg/dL [facility] Comment on above: Random Glucose Refer ence Range is dependent on time and content of last meal. Glucose of more than 200 mg/dL in a nonstressed, ambulatory subject supports the diagnosis of Diabetes Mellitus. Glucose [Mass/volume] in Ser um or PlasmaOrdered By: Gigi Cooper on 10-12-2023 Glucose [Mass/Vol] 275 mg/dL 70-100 [facility] Comment on above: Delta: 157 on -[id number] recommended reference rangeRandom Glucose Reference Range is dependent on time and content of last meal. Glucose of more than 200 mg/dL in a nonstressed, ambulatory subject supports the diagnosis of Diabetes Mellitus. No Panel InformationOrdered By: Gigi Cooper on 10-12-2023 Estimated GFR (CKD-EPI) 37.711 mL/Min [facility] Creatinine Clearance (Chem 54.56 [facility] No Panel InformationOrdered By: Yesi Murphy on 10-12-2023 Bedside Glucose Comment Glu2: cleaned meter [facility] Phosphate [Mass/volume] in S raymond or PlasmaOrdered By: Gigi Cooper on 10-12-2023 Phosphate [Mass/Vol] 3.4 mg/dL 2.5-4.5 [facility] Potassium [Moles/volume] in Serum or PlasmaOrdered By: Gigi Cooper on 10-12-2023 Potassium [Moles/Vol] 3.9 mmol/L 3.5-5.1 [facility] Serum or plasma anion gap de terminationOrdered By: Gigi Cooper on 10-12-2023 Anion gap [Moles/Vol] 10.1 mmol/L 6.0-15.0 [facility] Sodium [Moles/volume] in Ser um or PlasmaOrdered By: Gigi Cooper on 10-12-2023 Sodium [Moles/Vol] 135 mmol/L 136-145 [facility] Urea nitrogen [Mass/volume] in Serum or PlasmaOrdered By: Gigi Cooper on 10-12-2023 Urea nitrogen [Mass/Vol] 48 mg/dL 7-25 [facility] Automated erythrocytes count in urine sediment (number/area)Ordered By: Gigi Cooper on 10-10-2023 RBC Auto (Urine sed) [#/Area] None seen [HPF] 0-4 [facility] Automated leukocytes count i n urine sediment (number/area)Ordered By: Gigi Cooper on 10-10-2023 WBC Auto (Urine sed) [#/Area] None seen [HPF] 0-4 [facility] Bilirubin Test strip Ql (U)O rdered By: Gigi Cooper on 10-10-2023 Bilirubin Ql (U) Negative Negative [facility] Color Auto (U)Ordered By: Tony Cooper on 10-10-2023 Color (U) Yellow Yellow [facility] Ketones Auto test strip (U) [Mass/Vol]Ordered By: Gigi Cooper on 10-10-2023 Ketones (U) [Mass/Vol] Negative Negative [facility] Laboratory - UrinalysisOrder ed By: Gigi Cooper on 10-10-2023 Hyaline casts LM Ql (Urine sed) 0-8 [LPF] 0-8 [facility] Nitrite Test strip Ql (U)Ord ered By: Gigi Cooper on 10-10-2023 Nitrite Ql (U) Negative Negative [facility] Protein Auto test strip (U) [Mass/Vol]Ordered By: Gigi Cooper on 10-10-2023 Protein (U) [Mass/Vol] 30 mg/dL Negative [facility] Specific gravity Auto test s trip (U) [Rel density]Ordered By: Gigi Cooper on 10-10-2023 Specific gravity (U) [Rel density] 1.008 1.001-1.030 [facility] Squamous epithelial cells de tection in urine sediment by light microscopyOrdered By: Gigi Cooper on 10-10-2023 Epithelial cells.squamous LM Ql (Urine sed) None seen [HPF] 0-2 [facility] Urine bacteria detection by automated methodOrdered By: Gigi Cooper on 10-10-2023 Bacteria Auto Ql (U) None seen None Seen [facility] Urine clarity by refractomet ry automatedOrdered By: Gigi Cooper on 10-10-2023 Clarity Refractometry automated (U) Clear Clear [facility] Urine glucose measurement by automated test strip (mass/volume)Ordered By: Gigi Cooper on 10-10-2023 Glucose Auto test strip (U) [Mass/Vol] Normal mg/dL Normal [facility] Urine hemoglobin detection b y automated test stripOrdered By: Gigi Cooper on 10-10-2023 Hemoglobin Auto test strip Ql (U) Negative Negative [facility] Urine leukocyte esterase det ection by automated test stripOrdered By: Gigi Cooper on 10-10-2023 Leukocyte esterase Auto test strip Ql (U) Negative Negative [facility] Urobilinogen Auto test strip (U) [Mass/Vol]Ordered By: Gigi Cooper on 10-10-2023 Urobilinogen (U) [Mass/Vol] Normal mg/dL Normal [facility] pH Auto test strip (U)Ordere d By: Gigi Cooper on 10-10-2023 pH (U) 5.0 [pH] 5.0-9.0 [facility] Magnesium [Mass/volume] in S raymond or PlasmaOrdered By: Ramses Masters on 10-09-2023 Magnesium [Mass/Vol] 2.0 mg/dL 1.9-2.7 [facility] Nursing Note - Woundon 10-09 Nursing Note - Wound [id number]# 1.00TIFF Normal [facility] Creatinine [Mass/volume] in UrineOrdered By: Hood Zacarias on 10-08-2023 Creatinine (U) [Mass/Vol] 23.0 mg/dL 14.0-26.0 [facility] Protein [Mass/volume] in Uri neOrdered By: Hood Zacarias on 10-08-2023 Protein (U) [Mass/Vol] 40 mg/dL 0-9 [facility] Activated partial thrombopla stin time (aPTT) in platelet poor plasma by coagulation aOrdered By: Jason Mercado on 10-06-2023 aPTT Coag (PPP) [Time] 31.1 s 25.1-36.5 [facility] Comment on above: A hematocrit value g reater than 55% may lead to inaccurate results in coagulation testing. Patients having hematocrit values >55% require a special collection tube for coagulation studies. Please contact the laboratory at [phone] for redraw instructions. Automated erythrocytes count in urine sediment (number/area)Ordered By: Jason Mercado on 10-06-2023 RBC Auto (Urine sed) [#/Area] Innumerable [HPF] 0-4 [facility] Automated leukocytes count i n urine sediment (number/area)Ordered By: Jason Mercado on 10-06-2023 WBC Auto (Urine sed) [#/Area] 1-2 [HPF] 0-4 [facility] Bacterial blood cultureOrder ed By: Jason Mercado on 10-06-2023 Bacteria identified Cx Nom (Bld) NO GROWTH 5 DAYS [facility] Bacteria identified Cx Nom (Bld) NO GROWTH 5 DAYS [facility] Bacteria identified Cx Nom (Bld) NO GROWTH 5 DAYS [facility] Bacteria identified Cx Nom (Bld) NO GROWTH 5 DAYS [facility] Basophils Auto (Bld) [#/Vol] Ordered By: Jason Mercado on 10-06-2023 Basophils (Bld) [#/Vol] 0.1 10*3/uL 0.0-0.2 [facility] Basophils/100 WBC Auto (Bld) Ordered By: Jason Mercado on 10-06-2023 Basophils/100 WBC (Bld) 1.0 % . [facility] Bilirubin Test strip Ql (U)O rdered By: Jason Mercado on 10-06-2023 Bilirubin Ql (U) Negative Negative [facility] COVID CepheidOrdered By: Myra Mercado on 10-06-2023 SARS-CoV-2 (COVID-19) Ab IA Ql Negative Negative [facility] Comment on above: This is a duplicate Year [employer] Xpert Xpress CoV-2/Flu/RSV Plus RNA by RT-PCR result to be used for statistical tracking purpose only. SARS-CoV-2 (COVID-19) RNA ERIBERTO+probe Ql (Unsp spec) [facility] SARS-CoV-2 (COVID-19) RNA ERIBERTO+probe Ql (Unsp spec) [facility] Calcium [Mass/volume] in Ser um or PlasmaOrdered By: Jason Mercado on 10-06-2023 Calcium [Mass/Vol] 8.7 mg/dL 8.6-10.3 [facility] Carbon dioxide, total [Moles /volume] in Serum or PlasmaOrdered By: Jason Mercado on 10-06-2023 CO2 [Moles/Vol] 28.2 mmol/L 21.0-31.0 [facility] Chloride [Moles/volume] in S raymond or PlasmaOrdered By: Jason Mercado on 10-06-2023 Chloride [Moles/Vol] 102 mmol/L 98-107 [facility] Color Auto (U)Ordered By: Harpal Mercado on 10-06-2023 Color (U) Yellow Yellow [facility] Creatine kinase [Enzymatic a ctivity/volume] in Serum or PlasmaOrdered By: Jason Mercado on 10-06-2023 CK [Catalytic activity/Vol] 60 U/L 30-223 [facility] Creatinine [Mass/volume] in Serum or PlasmaOrdered By: Jasno Mercado on 10-06-2023 Creatinine [Mass/Vol] 1.86 mg/dL 0.70-1.30 [facility] Eosinophils Auto (Bld) [#/Vo l]Ordered By: Jason Mercado on 10-06-2023 Eosinophils (Bld) [#/Vol] 0.2 10*3/uL 0.0-0.45 [facility] Eosinophils/100 WBC Auto (Bl d)Ordered By: Jason Mercaod on 10-06-2023 Eosinophils/100 WBC (Bld) 3.0 % . [facility] Erythrocyte distribution wid th Auto (RBC) [Ratio]Ordered By: Jason Mercado on 10-06-2023 Erythrocyte distribution width (RBC) [Ratio] 18.3 % 12.0-14.8 [facility] Glucose [Mass/volume] in Ser um or PlasmaOrdered By: Jason Mercado on 10-06-2023 Glucose [Mass/Vol] 243 mg/dL 70-100 [facility] Comment on above: ADA recommended refe rence rangeRandom Glucose Reference Range is dependent on time and content of last meal. Glucose of more than 200 mg/dL in a nonstressed, ambulatory subject supports the diagnosis of Diabetes Mellitus. Hematocrit Auto (Bld) [Volum e fraction]Ordered By: Jason Mercado on 10-06-2023 Hematocrit (Bld) [Volume fraction] 40.5 % 38.8-50.0 [facility] Hemoglobin [Mass/volume] in BloodOrdered By: Jason Mercado on 10-06-2023 Hemoglobin (Bld) [Mass/Vol] 12.9 g/dL 13.0-17.0 [facility] INR in Platelet poor plasma by Coagulation assayOrdered By: Jason Mercado on 10-06-2023 INR Coag (PPP) [Relative time] 1.0 {INR} [facility] Comment on above: INR Therapeutic Rang e A) Pre- and Peroperative OAT started two weeks before surgery. NOT HIP SURGERY: 1.5 - 2.5 HIP SURGERY: 2 - 3B) Primary and secondary prevention of venous THROMBOSIS: 2 - 3C) Active venous thrombosis, pulmonary embolismand prevention of recurrent venous thrombosis: 2 - 3D) Prevention of arterial thromboembolismincluding patients with mechanical heart valves: 3 - 4.5 Ketones Auto test strip (U) [Mass/Vol]Ordered By: Jason Mercado on 10-06-2023 Ketones (U) [Mass/Vol] Negative Negative [facility] Laboratory - Chemistry and C hemistry - challengeOrdered By: Jason Mercado on 10-06-2023 CO2 [Moles/Vol] 30.8 mmol/L 24.0-29.0 [facility] HCO3 (Bld) [Moles/Vol] 28.8 mmol/L 23.0-29.0 [facility] - UrinalysisOrder ed By: Jason Mercado on 10-06-2023 Hyaline casts LM Ql (Urine sed) 0-8 [LPF] 0-8 [facility] Lactate [Moles/volume] in Se rum or PlasmaOrdered By: Jason Mercado on 10-06-2023 Lactate [Moles/Vol] 0.7 mmol/L 0.5-2.2 [facility] Leukocytes [#/volume] correc maria guadalupe for nucleated erythrocytes in Blood by Automated counOrdered By: Jason Mercado on 10-06-2023 WBC corrected for nucl RBC Auto (Bld) [#/Vol] 7.0 10*3/uL 4.1-10.5 [facility] Lymphocytes Auto (Bld) [#/Vo l]Ordered By: Jason Mercado on 10-06-2023 Lymphocytes (Bld) [#/Vol] 0.8 10*3/uL 1.00-4.8 [facility] Lymphocytes/100 WBC Auto (Bl d)Ordered By: Jason Mercado on 10-06-2023 Lymphocytes/100 WBC (Bld) 11.2 % . [facility] MCH Auto (RBC) [Entitic mass ]Ordered By: Jason Mercado on 10-06-2023 MCH (RBC) [Entitic mass] 27.3 pg 27.5-35.2 [facility] MCHC Auto (RBC) [Mass/Vol]Or dered By: Jason Mercado on 10-06-2023 MCHC (RBC) [Mass/Vol] 31.9 g/dL 32.5-35.6 [facility] MCV Auto (RBC) [Entitic vol] Ordered By: Jason Mercado on 10-06-2023 MCV (RBC) [Entitic vol] 85.6 fL 83.5-101 [facility] Monocyte distribution width [Entitic volume] in Blood by AutomatedOrdered By: Jason Mercado on 10-06-2023 Monocyte distribution width Auto (Bld) [Entitic vol] 17.40 % 0.00-20.00 [facility] Monocytes Auto (Bld) [#/Vol] Ordered By: Jason Mercado on 10-06-2023 Monocytes (Bld) [#/Vol] 0.7 10*3/uL 0.0-0.8 [facility] Monocytes/100 WBC Auto (Bld) Ordered By: Jason Mercado on 10-06-2023 Monocytes/100 WBC (Bld) 10.0 % . [facility] Natriuretic peptide B [Mass/ Vol]Ordered By: Jason Mercado on 10-06-2023 Natriuretic peptide B (Bld) [Mass/Vol] 131.0 pg/mL 5-100 [facility] Neutrophils Auto (Bld) [#/Vo l]Ordered By: Jason Mercado on 10-06-2023 Neutrophils (Bld) [#/Vol] 5.2 10*3/uL 1.8-7.7 [facility] Neutrophils/100 WBC Auto (Bl d)Ordered By: Jason Mercado on 10-06-2023 Neutrophils/100 WBC (Bld) 74.8 % . [facility] Nitrite Test strip Ql (U)Ord ered By: Jason Mercado on 10-06-2023 Nitrite Ql (U) Negative Negative [facility] No Panel InformationOrdered By: Jason Mercado on 10-06-2023 Blood Gas Critical Value See comment [facility] Comment on above: Critical Value dickerson d on: 10/06/2023 at 21:16 Blood Gas Liter Flow 6 [facility] Blood Gas Sample Site Venous [facility] FiO2 45% % [facility] Oxygen Delivery Device Nasal cannula [facility] Venous Blood Base Excess 0.4 mmol/L -3.0-3.0 [facility] Venous Blood Oxygen Saturation 81.5 % 73.0-76.0 [facility] Venous Blood Partial Pressure CO2 63.9 mm[Hg] 38.0-50.0 [facility] Venous Blood pH 7.27 7.32-7.43 [facility] Estimated GFR (CKD-EPI) 39.912 mL/Min [facility] Creatinine Clearance (Chem 57.52 [facility] Nucleated erythrocytes [Pres ence] in Blood by Automated countOrdered By: Jason Mercado on 10-06-2023 Nucleated RBC Auto Ql (Bld) 0.1 /100{WBC} 0-0.5 [facility] Platelet mean volume Auto (B ld) [Entitic vol]Ordered By: Jason Mercado on 10-06-2023 Platelet mean volume (Bld) [Entitic vol] 6.8 fL 6.6-10.1 [facility] Platelets Auto (Bld) [#/Vol] Ordered By: Jason Mercado on 10-06-2023 Platelets (Bld) [#/Vol] 236 10*3/uL 150-450 [facility] Potassium [Moles/volume] in Serum or PlasmaOrdered By: Jason Mercado on 10-06-2023 Potassium [Moles/Vol] 5.6 mmol/L 3.5-5.1 [facility] Protein Auto test strip (U) [Mass/Vol]Ordered By: Jason Mercado on 10-06-2023 Protein (U) [Mass/Vol] 100 mg/dL Negative [facility] Prothrombin time (PT)Ordered By: Jason Mercado on 10-06-2023 PT Coag (PPP) [Time] 11.4 s 9.0-12.9 [facility] Comment on above: A hematocrit value g reater than 55% may lead to inaccurate results in coagulation testing. Patients having hematocrit values >55% require a special collection tube for coagulation studies. Please contact the laboratory at [phone] for redraw instructions. RBC Auto (Bld) [#/Vol]Ordere d By: Jason Mercado on 10-06-2023 RBC (Bld) [#/Vol] 4.73 10*6/uL 3.90-5.60 [facility] Serum or plasma anion gap de terminationOrdered By: Jason Mercado on 10-06-2023 Anion gap [Moles/Vol] 10.4 mmol/L 6.0-15.0 [facility] Sodium [Moles/volume] in Ser um or PlasmaOrdered By: Jason Mercado on 10-06-2023 Sodium [Moles/Vol] 135 mmol/L 136-145 [facility] Specific gravity Auto test s trip (U) [Rel density]Ordered By: Jason Mercado on 10-06-2023 Specific gravity (U) [Rel density] 1.013 1.001-1.030 [facility] Squamous epithelial cells de tection in urine sediment by light microscopyOrdered By: Jason Mercado on 10-06-2023 Epithelial cells.squamous LM Ql (Urine sed) 0-1 [HPF] 0-2 [facility] Troponin I.cardiac [Mass/vol ume] in Serum or Plasma by Detection limit <= 0.01 ng/Ordered By: Jason Mercado on 10-06-2023 Troponin I.cardiac DL <= 0.01 ng/mL [Mass/Vol] 8.2 pg/mL 0.0-20.0 [facility] Urea nitrogen [Mass/volume] in Serum or PlasmaOrdered By: Jason Mercado on 10-06-2023 Urea nitrogen [Mass/Vol] 53 mg/dL 7-25 [facility] Urine bacteria detection by automated methodOrdered By: Jason Mercado on 10-06-2023 Bacteria Auto Ql (U) None seen None Seen [facility] Urine clarity by refractomet ry automatedOrdered By: Jason Mercado on 10-06-2023 Clarity Refractometry automated (U) Clear Clear [facility] Urine glucose measurement by automated test strip (mass/volume)Ordered By: Jason Mercado on 10-06-2023 Glucose Auto test strip (U) [Mass/Vol] 100 mg/dL Normal [facility] Urine hemoglobin detection b y automated test stripOrdered By: Jason Mercado on 10-06-2023 Hemoglobin Auto test strip Ql (U) 3+ Negative [facility] Urine leukocyte esterase det ection by automated test stripOrdered By: Jason Mercado on 10-06-2023 Leukocyte esterase Auto test strip Ql (U) Negative Negative [facility] Urobilinogen Auto test strip (U) [Mass/Vol]Ordered By: Jason Mercado on 10-06-2023 Urobilinogen (U) [Mass/Vol] Normal mg/dL Normal [facility] WBC Auto (Bld) [#/Vol]Ordere d By: Jason Mercado on 10-06-2023 WBC (Bld) [#/Vol] 7.0 10*3/uL 4.1-10.5 [facility] pH Auto test strip (U)Ordere d By: Jason Mercado on 10-06-2023 pH (U) 5.0 [pH] 5.0-9.0 [facility] Ambulatory Visit Summaryon 0 10-05-2023 Ambulatory Visit Summary Normal [address], [address] [place] [address]- \.br\ 2023 9:00 AM EDT \.br\ With:\.br\ Where: [facility]\.br\ Monday 1:15 PM EDT \.br\ With:\.br\ Where: [facility]\.br\ Medications\.br\ What How Much When Why Instructions\.br\ Unchanged albuterol (Albuterol (Eqv-ProAir HFA) 90 mcg/ inh inhalation aerosol) 2 Puffs Inhalation Every 6 hours as needed for Wheezing\.br\ Unchanged albuterol (albuterol 0.083% Inh Harriet 3 mL) 3 Milliliter Inhalation Every 4 hours as needed for Shortness of breath or wheezing\.br\ Unchanged albuterol (Ventolin HFA 90 mcg/ inh Aerosol) 2 Puffs Inhalation Every 4 hours as needed for Shortness of breath or wheezing\.br\ Unchanged atorvastatin (atorvastatin 40 mg Tab) 1 Tablets By Mouth Once a day (in the morning)\.br\ Unchanged budesonide-formot ingrid (Symbicort 160/ 4.5 inhalation aerosol with adapter) 2 Puffs Inhalation 2 times a day Asthma\.br\ Unchanged duloxetine (duloxetine 60 mg oral delayed release capsule) 1 Capsules By Mouth Every day\.br\ Unchanged furosemide (Lasix 20 mg Tab) 1 Tablets By Mouth Once a day (in the evening)\.br\ Unchanged furosemide (Lasix 40 mg Tab) 1 Tablets By Mouth Every day\.br\ Unchanged gabapentin (gabapentin 600 mg Tab) 1 Tablets By Mouth 3 times a day Diabetes mellitus with neuropathy 30 Day Supply \.br\ Unchanged insulin aspart (NovoLOG FlexPen 100 units/ mL injectable solution) See instructions <150 35 units, 150 - 200 40 units, 201-250 45 units, 50 units >250 tidac. Max 150 units a day \.br\ Unchanged insulin glargine (Toujeo Max SoloStar 300 units/ mL subcutaneous solution) 40 Units Subcutaneous 2 times a day\.br\ Unchanged insulin glargine (Toujeo SoloStar) 50 Units Subcutaneous At bedtime\.br\ Unchanged linagliptin-metFO RMIN (Jentadueto 2.5 mg-1000 mg oral tablet) 1 Tablets By Mouth 2 times a day\.br\ Unchanged Misc Prescription (Freestyle Sage 2 [place]) See instructions Use daily with sensor \.br\ Unchanged Misc Prescription (Freestyle Sage 2 Sensors) See instructions Apply one q 14 days \.br\ Unchanged Misc Prescription (Glucometer test strips) See instructions Test TID DX E11.40 on insulin \.br\ Unchanged Misc Prescription (Glucometer) See instructions Diabetes mellitus with neuropathy Dispense 1 Glucometer \.br\ Unchanged Misc Prescription (Insulin Pen [place] 31g x 8 mm) See instructions Use up to 4 daily \.br\ Unchanged Misc Prescription (lancets) See instructions test blood sugar tid dx E11.9 on insulin \.br\ Unchanged pantoprazole (Protonix 40 mg Tab-DR) 1 Tablets By Mouth Every day Chronic GERD\.br\ Unchanged ropinirole (ropinirole 1 mg Tab) 1 Tablets By Mouth Once a day (in the evening)\.br\ Unchanged tamsulosin (tamsulosin 0.4 mg Cap) 1 Capsules By Mouth Every day Duration: 30 Days\.br\ Unchanged tizanidine (Zanaflex 2 mg oral capsule) 1 Capsules By Mouth Every 8 hours as needed for Muscle pain\.br\ Allergies\.br\ penicillins (Rash)\.br\ Problems\.br\ Ongoing - Any problem that you are currently receiving treatment for.\.br\ Acquired absence of other right toe(s)\.br\ Acute hypoxemic respiratory failure\.br\ Acute on chronic respiratory failure with hypercapnia\.br\ Asthma\.br\ Asthma\.br\ Chronic cough\.br\ Chronic GERD\.br\ Chronic hypoxemic respiratory failure\.br\ Chronic kidney disease, stage 3b\.br\ CKD (chronic kidney disease)\.br\ Colonoscopy refused\.br\ Cramps of lower extremity\.br\ Diabetes mellitus with neuropathy\.br\ Elevated brain natriuretic peptide (BNP) level\.br\ GERD (gastroesophageal reflux disease)\.br\ GERD - Gastro-esophageal reflux disease\.br\ Hyperlipidemia\.b r\ Hypertension\.br\ Long-term insulin use\.br\ Low back pain\.br\ 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 mellitus\.br\ Morbid obesity\.br\ Onychomycosis\.br \ TC (obstructive sleep apnea)\.br\ PVD (pulmonary valve disease)\.br\ Respiratory acidosis\.br\ Restless leg syndrome\.br\ T2DM (type 2 diabetes mellitus)\.br\ Type 2 diabetes mellitus\.br\ Type 2 diabetes mellitus with hyperglycemia\.br \ Type 2 diabetes mellitus with hyperlipidemia\.b r\ Type 2 diabetes mellitus with morbid obesity\.br\ Type 2 diabetes mellitus with stage 3 chronic kidney disease\.br\ Urinary retention\.br\ Varicose veins of lower extremity\.br\ Historical - Any problem that you are no longer receiving treatment for.\.br\ Major depressive disorder, severe\.br\ MRSA\.br\ Patient Survey\.br\ You may receive a survey via text or e-mail asking about your office visit. Please share your experience with us by completing your survey. We appreciate your feedback and thank you for choosing us for your care.\.br\ \.br\ [facility] Consent for Procedure/Surger yon 10-05-2023 Consent for Procedure/Surgery [id number]#1 .00TIFF Normal [facility] Consent for Treatmenton 09-21 Consent for Treatment [id number]#1 .00TIFF Normal [facility] HBOon 10-04-2023 HBO [id number]# 1.00TIFF [facility] Multi-Wound Charton 10-04-19 Multi-Wound Chart [id number]# 1.00TIFF [facility] Nursing Assessment - Woundon 10-04-2023 Nursing Assessment - Wound [id number]# 1.00TIFF [facility] Nursing Note - Woundon 10-04 Nursing Note - Wound [id number]# 1.00TIFF [facility] Physician Orderon 10-04-2023 Physician Order [id number]# 1.00TIFF [facility] Physician Order [id number]# 2.00TIFF [facility] Procedure - Woundon 10-04-19 Procedure - Wound [id number]# 1.00TIFF [facility] Progress Note - Woundon 09-21 Progress Note - Wound [id number]# 2.00TIFF [facility] Screenson 10-03-2023 Screens [id number]# [facility] CHEMISTRYOrdered By: Lab ROP User on 10-02-2023 Glucose [Mass/Vol] 224 mg/dL High 55 - 99 mg/dL [facility] C POC Subsection POC Device SN [id number] Invalid Interpretation Code [facility] P[place] Subsection POC User ID [id number] 1 Invalid Interpretation Code [facility] POC Subsection POC Username [email or web address] Invalid Interpretation Code [facility] POC Subsection Capillary Glucose POCon 09-21 Glucose [Mass/Vol] 224 mg/dL High 55-99 [facility] Comment on above: Performed By: #### 2 [id number] ####[facility] [address] [place] [address] Patient Educationon 10-02-19 24 Patient Education [facility] Pre-Certification Formon Pre-Certification Form [id number]#1 .00TIFF Normal [facility] Urology Office/Clinic Noteon 10-02-2023 Urology Office/Clinic Note Normal [facility] Comment on above: Result Comment: Elec tronically Signed By: BRYAN Bahena APRN, Gisselle Glasgow\brenda\Date and Time Signed: 10/02/23 07:51 EST Consent for Procedure/Surger yon 09-28-2023 Consent for Procedure/Surgery [id number]#1 .00TIFF Normal [facility] Correspondence - Woundon Correspondence - Wound [id number]#1 .00TIFF [facility] Correspondence - Wound [id number]#1 .00TIFF [facility] Coding Queryon 09-27-2023 Coding Query [id number]# 1.00TIFF [facility] Insurance Correspondenceon 0 09-27-2023 Insurance Correspondence [id number]#1 .00TIFF [facility] C Urineon 09-26-2023 Bacteria identified Cx Nom (U) Normal [facility] Comment on above: Performed By: #### 2 [id number], [id number] ####[facility] [address] [place] [address] Insurance Correspondenceon 0 09-25-2023 Insurance Correspondence [id number]#1 .00TIFF [facility] BMPon 09-24-2023 Anion gap [Moles/Vol] 11 mmol/L Normal 6-16 [facility] Comment on above: Performed By: #### 1 [id number], 5547479, 5084589 ####[facility] [address] [place] [address] BUN/Creat Ratio 29 No Units High 10-20 [facility] Comment on above: Performed By: #### 1 3848274, 9883576, 6709627 ####[facility] [address] [place] [address] Calcium [Mass/Vol] 8.7 mg/dL Low 8.9-11.1 [facility] Comment on above: Performed By: #### 1 5878024, 2017984, 6367814 ####[facility] [address] [place] [address] Chloride [Moles/Vol] 103 mmol/L Normal 101-111 [facility] Comment on above: Performed By: #### 1 [id number], 1926256, 6469854 ####[facility] [address] [address] CO2 [Moles/Vol] 28 mmol/L Normal 21-31 [facility] Comment on above: Performed By: #### 1 9407337, 7333132, 7872391 ####[facility] [address] [place] [address] Creatinine [Mass/Vol] 1.7 mg/dL High 0.5-1.3 [facility] Comment on above: Performed By: #### 1 4796018, 0869447, 1796816 ####[facility] [address] [place] [address] Glucose [Mass/Vol] 280 mg/dL High 55-199 [facility] Comment on above: Performed By: #### 1 2126338, 3234103, 0944019 ####[facility] [address] [place] [address] Potassium [Moles/Vol] 4.9 mmol/L Normal 3.5-5.3 [facility] Comment on above: Performed By: #### 1 2386787, 6679498, 6026124 ####[facility] [address] [place] [address] Sodium [Moles/Vol] 137 mmol/L Normal 135-145 [facility] Comment on above: Performed By: #### 1 8948370, 7597693, 7506384 ####[address] [place] [address] Urea nitrogen [Mass/Vol] 50 mg/dL High 5-21 [facility] Comment on above: Performed By: #### 1 1664578, 2872399, 7541346 ####[address] [address] CBC w/ Auto Diffon 4 Basophil Absolute 0.0 E9/L Normal 0.0-0.2 [facility] Comment on above: Performed By: #### 1 3653397, 8050484, 7064905 ####[place] [address] Basophils/100 WBC (Bld) 0.5 % Normal 0.0-2.0 [facility] Comment on above: Performed By: #### 1 9571522, 6238908, 6579828 ####[place] [address] Eos Absolute 0.3 E9/L Normal 0.0-0.5 [facility] Comment on above: Performed By: #### 1 3268269, 5728660, 9434461 ####[address] [address] Eosinophils/100 WBC (Bld) 4.7 % Normal 0.0-8.0 [facility] Comment on above: Performed By: #### 1 4151114, 1349025, 0668686 ####[address] [address] Erythrocyte distribution width (RBC) [Ratio] 17.8 % High 10.9-14.2 [facility] Comment on above: Performed By: #### 1 7734801, 9773822, 1121873 ####[address] [address] Hematocrit (Bld) [Volume fraction] 44.0 % Normal 37.7-49.0 [facility] Comment on above: Performed By: #### 1 2363643, 2406974, 7616165 ####[address] [address] Hemoglobin (Bld) [Mass/Vol] 13.9 g/dL Normal 13.5-17.5 [facility] Comment on above: Performed By: #### 1 4250578, 2278772, 4459886 ####[address] [address] Lymph Absolute 1.1 E9/L Normal 1.0-4.0 [facility] Comment on above: Performed By: #### 1 3845527, 1787144, 2089696 ####[address] [address] Lymphocytes/100 WBC (Bld) 20.1 % Normal 14.0-50.0 [facility] Comment on above: Performed By: #### 1 2818728, 6378847, 0503701 ####[address] [address] MCH (RBC) [Entitic mass] 27.3 pg Normal 27.0-34.0 [facility] Comment on above: Performed By: #### 1 5474308, 3379590, 3218620 ####[address] [address] MCHC (RBC) [Mass/Vol] 31.9 g/dL Normal 31.4-36.0 [facility] Comment on above: Performed By: #### 1 2667956, 0670087, 5045921 ####[address] [address] MCV (RBC) [Entitic vol] 85.7 fL Normal 80.0-100.0 [facility] Comment on above: Performed By: #### 1 4389194, 2032322, 2448833 ####[address] [address] Mccreary Absolute 0.6 E9/L Normal 0.2-1.0 [facility] Comment on above: Performed By: #### 1 8324679, 5576018, 0034014 ####[address] [address] Monocytes/100 WBC (Bld) 11.0 % Normal 4.0-14.0 [facility] Comment on above: Performed By: #### 1 9498838, 4413046, 5217326 ####[address] [address] Neutro Absolute 3.5 E9/L Normal 2.0-7.5 [facility] Comment on above: Performed By: #### 1 4641024, 9513577, 2601710 ####[address] [address] Neutro Auto 63.7 % Normal 36.0-75.0 [facility] Comment on above: Performed By: #### 1 4539936, 5216496, 4054762 ####[address] [address] Platelet 254.0 E9/L Normal 150.0-500.0 [facility] Comment on above: Performed By: #### 1 8068035, 6688265, 8992789 ####[address] [address] Platelet mean volume (Bld) [Entitic vol] 6.9 fL Normal 6.4-10.8 [facility] Comment on above: Performed By: #### 1 2754916, 6596435, 4054967 ####[address] [address] RBC 5.1 E12/L Normal 4.3-5.9 [facility] Comment on above: Performed By: #### 1 4185511, 9309182, 3343102 ####[address] [address] WBC 5.5 E9/L Normal 4.0-11.0 [facility] Comment on above: Performed By: #### 1 1885066, 2694409, 3090149 ####[facility] [place] [address] CHEMISTRYOrdered By: SYSTEM SYSTEM on 09-24-2023 Anion gap [Moles/Vol] 11 mmol/L Normal 6 - 16 mEq/L [facility] Calcium [Mass/Vol] 8.7 mg/dL Low 8.9 - 11.1 mg/dL [facility] Chloride [Moles/Vol] 103 mmol/L Normal 101 - 111 mmol/ L [facility] CO2 [Moles/Vol] 28 mmol/L Normal 21 - 31 mmol/L Remis ol Chem Creatinine [Mass/Vol] 1.7 mg/dL High 0.5 - 1.3 mg/dL [facility] eGFR 44 mL/min/1.73 m2 Low >=59mL/min /1.73 m2 [facility] Glucose [Mass/Vol] 280 mg/dL High 55 - 199 mg/dL Re misol Chem Potassium [Moles/Vol] 4.9 mmol/L Normal 3.5 - 5.3 mmol/L [facility] Sodium [Moles/Vol] 137 mmol/L Normal 135 - 145 mmol/L [facility] Urea nitrogen [Mass/Vol] 50 mg/dL High 5 - 21 mg/dL [facility] Urea nitrogen/Creatinine [Mass ratio] 29 mg/mg High 10 - 20 [facility] Consent for Treatmenton Consent for Treatment [id number]#1 .00TIFF Normal [facility] Discharge Instructionson Discharge Instructions [id number]# 1.00TIFF Normal [facility] ED Clinical Summaryon 2023 ED Clinical Summary Normal [facility] ED Note-Physicianon 09-24-19 24 ED Note-Physician Normal [facility] Comment on above: Result Comment: Elec tronically Signed By: Jose Miguel Phan DO.br\Date and Time Signed: 09/24/23 21:39 EST ED Patient Education Noteon 09-24-2023 ED Patient Education Note Normal [facility] ED Patient Summaryon 024 ED Patient Summary Normal [facility] HEMATOLOGYOrdered By: SYSTEM SYSTEM on 09-24-2023 Basophil Absolute 0.0 E9/L Normal 0.0 - 0.2 E9/L Rem isol Heme Basophils/100 WBC (Bld) 0.5 % Normal 0.0 - 2.0 % Remisol Heme Eos Absolute 0.3 E9/L Normal 0.0 - 0.5 E9/L [facility] Heme Eosinophils/100 WBC (Bld) 4.7 % Normal 0.0 - 8.0 % Rem[facility] Heme Erythrocyte distribution width (RBC) [Ratio] 17.8 % High 10.9 - 14.2 % [facility] Hem[facility] Hematocrit (Bld) [Volume fraction] 44.0 % Normal 37.7 - 49.0 % [facility] Heme Hemoglobin (Bld) [Mass/Vol] 13.9 g/dL Normal 13.5 - 17.5 gm/dL [facility] Heme Lymph Absolute 1.1 E9/L Normal 1.0 - 4.0 E9/L Remiso l Heme Lymphocytes/100 WBC (Bld) 20.1 % Normal 14.0 - 50.0 % Remisol Heme MCH (RBC) [Entitic mass] 27.3 pg Normal 27.0 - 34.0 pg Remisol Heme MCHC (RBC) [Mass/Vol] 31.9 g/dL Normal 31.4 - 36.0 gm/dL Remisol Heme MCV (RBC) [Entitic vol] 85.7 fL Normal 80.0 - 100.0 fL Remisol Heme Mccreary Absolute 0.6 E9/L Normal 0.2 - 1.0 E9/L [facility] Heme Monocytes/100 WBC (Bld) 11.0 % Normal 4.0 - 14.0 % Rem[facility] Heme Neutro Absolute 3.5 E9/L Normal 2.0 - 7.5 E9/L Remis ol Heme Neutro Auto 63.7 % Normal 36.0 - 75.0 % Remisol He me Platelet 254.0 E9/L Normal 150.0 - 500.0 E9/L Remisol Heme Platelet mean volume (Bld) [Entitic vol] 6.9 fL Normal 6.4 - 10.8 fL Remisol Heme RBC 5.1 E12/L Normal 4.3 - 5.9 E12/L Remisol H diogenes WBC 5.5 E9/L Normal 4.0 - 11.0 E9/L Remisol H diogenes UA With Cult Reflexon 2023 Urobilinogen Qn (U) 0.2 {Itz'U}/dL Normal 0.0-1.0 [facility] Comment on above: Performed By: #### 2 065030, [id number] ####[facility] [address] [place] [address] Bacteria LM Ql (Urine sed) TRACE Normal Trace [facility] Comment on above: Performed By: #### 2 006155, 80386392 ####[facility] [address] [place] [address] Bilirubin Ql (U) 1+ Abnormal Negative [facility] Comment on above: Performed By: #### 2 409833, [id number] ####[facility] [address] [place] [address] Clarity (U) CLOUDY Abnormal Clear [facility] Comment on above: Performed By: #### 2 262246, 60815343 ####[facility] [address] [place] [address] Color (U) RED Abnormal Yellow [facility] Comment on above: Performed By: #### 2 383244, 33370087 ####[facility] [address] [place] [address] Epithelial cells.squamous LM.HPF (Urine sed) [#/Area] 3-4 Normal 0-2 [facility] Comment on above: Performed By: #### 2 383877, 13151369 ####[facility] [address] [facility] [place] [address] Glucose Test strip (U) [Mass/Vol] 2+ Abnormal Negative [facility] Comment on above: Performed By: #### 2 427899, 54336576 ####[facility] [address] [place] [address] Hemoglobin Ql (U) 3+ Abnormal Negative [facility] Comment on above: Performed By: #### 2 141407, 46079298 ####[address] [place] [address] Ketones (U) [Mass/Vol] Negative Normal Negative [facility] Comment on above: Performed By: #### 2 715282, 61225634 ####[address] [address] Bode.plasma/Lithi um.RBC (Bld) [Mass ratio] >75 Abnormal 0-3 [facility] Comment on above: Performed By: #### 2 555927, 25388440 ####[address] [address] Nitrite Ql (U) Positive Abnormal Negative [facility] Comment on above: Performed By: #### 2 278787, 04655329 ####[address] [address] pH (U) 5.5 [pH] Invalid Interpretation Code 5.0-9.0 [facility] Comment on above: Performed By: #### 2 640471, 98782830 ####[address] [address] Protein (U) [Mass/Vol] 3+ Abnormal Negative [facility] Comment on above: Performed By: #### 2 810302, 74788254 ####[place] [address] Specific gravity (U) [Rel density] 1.025 Invalid Interpretation Code 1.005-1.030 [facility] Comment on above: Performed By: #### 2 937417, 66886869 ####[address] [address] Type of Urine collection method Catheter Normal [facility] Comment on above: Performed By: #### 2 724038, 07869941 ####[address] [address] WBC Auto Ql (U) Negative Normal Negative [facility] Comment on above: Performed By: #### 2 948364, 13021869 ####[place] [address] WBC LM.HPF (Urine sed) [#/Area] 0-5 Normal 0-5 [facility] Comment on above: Performed By: #### 2 653705, 31548005 ####[facility] [address] [place] [address] URINALYSISOrdered By: Richa Quinn on 09-24-2023 Bacteria LM Ql (Urine sed) Trace /HPF Normal Trace/HPF [facility] UA Auto SS Bilirubin Ql (U) 1+ *ABN* (09/24/23 8:26 PM) Invalid Interpretation Code Negative [facility] UA Auto SS Clarity (U) Cloudy *ABN* (09/24/23 8:26 PM) Invalid Interpretation Code Clear [facility] UA Auto SS Color (U) Red *ABN* (09/24/23 8:26 PM) Invalid Interpretation Code Yellow [facility] UA Auto SS Epithelial cells.squamous LM.HPF (Urine sed) [#/Area] 3-4 /HPF Normal 0-2/HPF [facility] UA Auto SS Glucose Test strip (U) [Mass/Vol] 2+ *ABN* (09/24/23 8:26 PM) Invalid Interpretation Code Negative [facility] UA Auto SS Hemoglobin Ql (U) 3+ *ABN* (09/24/23 8:26 PM) Invalid Interpretation Code Negative [facility] UA Auto SS Ketones (U) [Mass/Vol] Negative (09/24/23 8:26 PM) Normal Negative [facility] UA Auto SS Bode.plasma/Lithi um.RBC (Bld) [Mass ratio] >75 /HPF Invalid Interpretation Code 0-3/HPF [facility] UA Auto SS Nitrite Ql (U) Positive *ABN* (09/24/23 8:26 PM) Invalid Interpretation Code Negative [facility] UA Auto SS pH (U) 5.5 *NA* (09/24/23 8:26 PM) Invalid Interpretation Code 5.0 - 9.0 [facility] UA Auto SS Protein (U) [Mass/Vol] 3+ *ABN* (09/24/23 8:26 PM) Invalid Interpretation Code Negative [facility] UA Auto SS Specific gravity (U) [Rel density] 1.025 *NA* (09/24/23 8:26 PM) Invalid Interpretation Code 1.005 - 1.030 [facility] UA Auto SS UA Spec Desc Catheter (2/4/24 8:26 PM) Normal [facility] UA Auto SS Urobilinogen Qn (U) 0.6213506 {Itz'U}/dL Normal 0.0 - 1.0 EU/dL [facility] UA Auto SS WBC Auto Ql (U) Negative (09/24/23 8:26 PM) Normal Negative [facility] UA Auto SS WBC LM.HPF (Urine sed) [#/Area] 0-5 /HPF Normal 0-5/HPF [facility] UA Auto SS eGFRon 09-24-2023 eGFR 44 mL/min/1.73 m2 Low >=59 [facility] Comment on above: Order Comment: Order added by Discern Expert. Performed By: #### 1 [id number], 0962605, 4310937 ####[facility] [address] [place] [address] Insurance Correspondence Off iceon 09-20-2023 Insurance Correspondence Office [id number]# 1.00TIFF Normal [facility] C Blood Charcoalon Blood Culture Charcoal Normal [facility] Comment on above: Performed By: #### 1 [id number] ####[facility] [address] [place] [address] Discharge Instructionson Discharge Instructions [id number]# 1.00TIFF Normal [facility] Consent for Procedure/Surger yon 09-18-2023 Consent for Procedure/Surgery [id number]#1 .00TIFF Normal [facility] Consent for Treatmenton 08-22 Consent for Treatment [id number]#1 .00TIFF Normal [facility] Discharge Instructionson Discharge Instructions [id number] #1.00TIFF Normal [facility] ED Clinical Summaryon 2023 ED Clinical Summary Normal [facility] ED Note-Physicianon 09-17-19 24 ED Note-Physician Normal [facility] Comment on above: Result Comment: Elec tronically Signed By: Alejandro Silva M.D.\Date and Time Signed: 09/17/23 19:00 EST ED Patient Education Noteon 09-17-2023 ED Patient Education Note Normal [facility] ED Patient Summaryon 024 ED Patient Summary Normal [facility] BMPon 09-16-2023 Anion gap [Moles/Vol] 10 mmol/L Normal 6-16 [facility] Comment on above: Performed By: #### 2 048354, 34912469, 4816847, 7132644 ####[facility] [address] [place] [address] BUN/Creat Ratio 24 No Units High 10-20 [facility] Comment on above: Performed By: #### 2 652030, 13781443, 1710280, 3315513 ####[facility] [address] [place] [address] Calcium [Mass/Vol] 8.2 mg/dL Low 8.9-11.1 [facility] Comment on above: Performed By: #### 2 892118, 61310963, 4594024, 1339124 ####[facility] [address] Ave[place] [address] Chloride [Moles/Vol] 97 mmol/L Low 101-111 [facility] Comment on above: Performed By: #### 2 813531, 20992765, 9648563, 0551559 ####[facility] [address] [place] [address] CO2 [Moles/Vol] 33 mmol/L High 21-31 [facility] Comment on above: Performed By: #### 2 252995, 07555705, 5875797, 7975059 ####[facility] [address] [place] [address] Creatinine [Mass/Vol] 1.6 mg/dL High 0.5-1.3 [facility] Comment on above: Performed By: #### 2 833597, 83540481, 1254417, 6552012 ####[facility] [address] [place] [address] Glucose [Mass/Vol] 191 mg/dL Normal 55-199 [facility] Comment on above: Performed By: #### 2 537095, 01115864, 8448904, 4402039 ####[facility] [address] [place] [address] Potassium [Moles/Vol] 4.0 mmol/L Normal 3.5-5.3 [facility] Comment on above: Performed By: #### 2 710996, 25009308, 7392613, 8273888 ####[address] [address] Sodium [Moles/Vol] 136 mmol/L Normal 135-145 [facility] Comment on above: Performed By: #### 2 808388, 25012181, 6792152, 0198755 ####[facility] [address] [place] [address] Urea nitrogen [Mass/Vol] 38 mg/dL High 5-21 [facility] Comment on above: Performed By: #### 2 089312, 37153319, 0558931, 9301981 ####[address] [address] CBC w/ Auto Diffon 4 Basophil Absolute 0.0 E9/L Normal 0.0-0.2 [facility] Comment on above: Performed By: #### 2 016744, 86331237, 0336587, 9562471 ####[address] [place] [address] Basophils/100 WBC (Bld) 0.7 % Normal 0.0-2.0 [facility] Comment on above: Performed By: #### 2 619850, 18181371, 3422322, 8489041 ####[address] [address] Eos Absolute 0.4 E9/L Normal 0.0-0.5 [facility] Comment on above: Performed By: #### 2 810859, 53459633, 1133687, 3622251 ####[address] [address] Eosinophils/100 WBC (Bld) 6.9 % Normal 0.0-8.0 [facility] Comment on above: Performed By: #### 2 909625, 15120043, 0466033, 1164378 ####[address] [address] Erythrocyte distribution width (RBC) [Ratio] 17.4 % High 10.9-14.2 [facility] Comment on above: Performed By: #### 2 875398, 48986862, 6585395, 7908214 ####[address] [address] Hematocrit (Bld) [Volume fraction] 44.0 % Normal 37.7-49.0 [facility] Comment on above: Performed By: #### 2 273561, 43534348, 1204227, 1297118 ####[address] [address] Hemoglobin (Bld) [Mass/Vol] 13.8 g/dL Normal 13.5-17.5 [facility] Comment on above: Performed By: #### 2 490477, 14851215, 6051789, 7658524 ####[address] [address] Lymph Absolute 1.4 E9/L Normal 1.0-4.0 [facility] Comment on above: Performed By: #### 2 667005, 18774651, 2468791, 1180776 ####[address] [address] Lymphocytes/100 WBC (Bld) 21.5 % Normal 14.0-50.0 [facility] Comment on above: Performed By: #### 2 185582, 43912295, 0698577, 3361882 ####[facility] [address] [place] [address] MCH (RBC) [Entitic mass] 27.0 pg Normal 27.0-34.0 [facility] Comment on above: Performed By: #### 2 048581, 01750925, 8074294, 4648062 ####[address] [address] MCHC (RBC) [Mass/Vol] 31.3 g/dL Low 31.4-36.0 [facility] Comment on above: Performed By: #### 2 350560, 44254474, 6651645, 4387207 ####[address] [address] MCV (RBC) [Entitic vol] 86.3 fL Normal 80.0-100.0 [facility] Comment on above: Performed By: #### 2 334411, 44715667, 4395534, 9217109 ####[address] [address] Mccreary Absolute 0.8 E9/L Normal 0.2-1.0 [facility] Comment on above: Performed By: #### 2 727354, 24136444, 4032684, 7306385 ####[address] [address] Monocytes/100 WBC (Bld) 13.0 % Normal 4.0-14.0 [facility] Comment on above: Performed By: #### 2 922547, 13270500, 1989093, 4703253 ####[address] [place] [address] Neutro Absolute 3.8 E9/L Normal 2.0-7.5 [facility] Comment on above: Performed By: #### 2 455158, 84093798, 2036867, 7004024 ####[address] [address] Neutro Auto 57.9 % Normal 36.0-75.0 [facility] Comment on above: Performed By: #### 2 695946, 84858046, 7206638, 9161433 ####[facility] [address] [place] [address] Platelet 231.0 E9/L Normal 150.0-500.0 [facility] Comment on above: Performed By: #### 2 304136, 32912306, 3631133, 4528228 ####[facility] [address] [place] [address] Platelet mean volume (Bld) [Entitic vol] 7.0 fL Normal 6.4-10.8 [facility] Comment on above: Performed By: #### 2 428607, 11465177, 8251900, 0439203 ####[facility] [address] [place] [address] RBC 5.1 E12/L Normal 4.3-5.9 [facility] Comment on above: Performed By: #### 2 654416, 26831650, 8549878, 1838609 ####[facility] [address] [place] [address] WBC 6.5 E9/L Normal 4.0-11.0 [facility] Comment on above: Performed By: #### 2 251406, 16205860, 9030681, 9393880 ####[facility] [address] [place] [address] Capillary Glucose POCon 08-22 Glucose [Mass/Vol] 198 mg/dL High 55-99 [facility] Comment on above: Result Comment: Thelma maxwell RN/ Performed By: #### 2 06821623 ####[facility] [address] [place] [address] Inpatient Clinical Summaryon 09-16-2023 Inpatient Clinical Summary Normal [facility] Inpatient Patient Summaryon 09-16-2023 Inpatient Patient Summary Normal [facility] Inpatient Patient Summary Normal [facility] Interdisciplinary Note - Yimi e Manageron 09-16-2023 Interdisciplinary Note - Psychiatry Physician Patient DC before CRM rounded in room today Normal [facility] Comment on above: Result Comment: Elec tronically Signed By: Jodee Giang\.br\Date and Time Signed: 09/16/23 11:26 EST Magnesiumon 09-16-2023 Magnesium [Mass/Vol] 1.9 mg/dL Normal 1.3-2.4 [facility] Comment on above: Performed By: #### 2 805652, 42000360, 1030021, 7992706 ####[facility] [address] [place] [address] Monitor Recordon 09-16-2023 Monitor Record [id number]# 1.00TIFF Normal [facility] Monitor Record [id number]# 1.00TIFF Normal [facility] Monitor Record [id number]# 1.00TIFF Normal [facility] eGFRon 09-16-2023 eGFR 48 mL/min/1.73 m2 Low >=59 [facility] Comment on above: Order Comment: Order added by Discern Expert. Performed By: #### 2 414739, 71705595, 4382665, 3426606 ####[facility] [address] [place] [address] BMPon 09-15-2023 Anion gap [Moles/Vol] 8 mmol/L Normal 6-16 [facility] Comment on above: Performed By: #### 2 650487, 0010556, 57858239 ####[facility] [address] [place] [address] BUN/Creat Ratio 25 No Units High 10-20 [facility] Comment on above: Performed By: #### 2 114731, 5561557, 23604904 ####[facility] [address] [place] [address] Calcium [Mass/Vol] 8.4 mg/dL Low 8.9-11.1 [facility] Comment on above: Performed By: #### 2 539129, 0494457, 03082681 ####[facility] [address] [place] [address] Chloride [Moles/Vol] 94 mmol/L Low 101-111 [facility] Comment on above: Performed By: #### 2 657040, 5631204, 73329922 ####[facility] [address] [place] [address] CO2 [Moles/Vol] 38 mmol/L High 21-31 [facility] Comment on above: Performed By: #### 2 125161, 0958533, 00430215 ####[facility] [address] [place] [address] Creatinine [Mass/Vol] 1.7 mg/dL High 0.5-1.3 [facility] Comment on above: Performed By: #### 2 060279, 7062061, 05165370 ####[address] [address] Glucose [Mass/Vol] 154 mg/dL Normal 55-199 [facility] Comment on above: Performed By: #### 2 914596, 7782845, 95034285 ####[address] [place] [address] Potassium [Moles/Vol] 4.1 mmol/L Normal 3.5-5.3 [facility] Comment on above: Performed By: #### 2 358196, 1834516, 05874145 ####[facility] [address] [place] [address] Sodium [Moles/Vol] 136 mmol/L Normal 135-145 [facility] Comment on above: Performed By: #### 2 311198, 0680806, 13326049 ####[facility] [address] [place] [address] Urea nitrogen [Mass/Vol] 43 mg/dL High 5-21 [facility] Comment on above: Performed By: #### 2 808898, 1640850, 28245973 ####[facility] [address] [place] [address] C Woundon 09-15-2023 Wound Culture Normal [facility] Comment on above: Performed By: #### 2 430791 ####[address] [address] CBC w/ Auto Diffon Basophil Absolute 0.0 E9/L Normal 0.0-0.2 [facility] Comment on above: Performed By: #### 2 837486 ####[address] [address] Basophils/100 WBC (Bld) 0.6 % Normal 0.0-2.0 [facility] Comment on above: Performed By: #### 2 105906 ####[address] [address] Eos Absolute 0.3 E9/L Normal 0.0-0.5 [facility] Comment on above: Performed By: #### 2 642831 ####[address] [address] Eosinophils/100 WBC (Bld) 5.0 % Normal 0.0-8.0 [facility] Comment on above: Performed By: #### 2 830974 ####[address] [address] Erythrocyte distribution width (RBC) [Ratio] 17.9 % High 10.9-14.2 [facility] Comment on above: Performed By: #### 2 530480 ####[address] [address] Hematocrit (Bld) [Volume fraction] 45.0 % Normal 37.7-49.0 [facility] Comment on above: Performed By: #### 2 695576 ####[address] [address] Hemoglobin (Bld) [Mass/Vol] 14.3 g/dL Normal 13.5-17.5 [facility] Comment on above: Performed By: #### 2 994223 ####[facility] [address] [place] [address] Lymph Absolute 1.3 E9/L Normal 1.0-4.0 [facility] Comment on above: Performed By: #### 2 835292 ####[facility] [address] [place] [address], [place] [address] Lymphocytes/100 WBC (Bld) 19.3 % Normal 14.0-50.0 [facility] Comment on above: Performed By: #### 2 703788 ####[address] [address] MCH (RBC) [Entitic mass] 27.5 pg Normal 27.0-34.0 [facility] Comment on above: Performed By: #### 2 276613 ####[address] [address] MCHC (RBC) [Mass/Vol] 31.6 g/dL Normal 31.4-36.0 [facility] Comment on above: Performed By: #### 2 758236 ####[address] [address] MCV (RBC) [Entitic vol] 87.1 fL Normal 80.0-100.0 [facility] Comment on above: Performed By: #### 2 678180 ####[facility] [address] [place] [address] Mccreary Absolute 0.7 E9/L Normal 0.2-1.0 [facility] Comment on above: Performed By: #### 2 843322 ####[address] [place] [address] Monocytes/100 WBC (Bld) 10.9 % Normal 4.0-14.0 [facility] Comment on above: Performed By: #### 2 763844 ####[address] [place] [address] Neutro Absolute 4.2 E9/L Normal 2.0-7.5 [facility] Comment on above: Performed By: #### 2 988197 ####[facility] [address] [place] [address] Neutro Auto 64.2 % Normal 36.0-75.0 [facility] Comment on above: Performed By: #### 2 524105 ####[facility] [address] [facility] [address] Platelet 238.0 E9/L Normal 150.0-500.0 [facility] Comment on above: Performed By: #### 2 877220 ####[facility] [address] [place] [address] Platelet mean volume (Bld) [Entitic vol] 7.0 fL Normal 6.4-10.8 [facility] Comment on above: Performed By: #### 2 533666 ####[facility] [address] [place] [address] RBC 5.2 E12/L Normal 4.3-5.9 [facility] Comment on above: Performed By: #### 2 333156 ####[facility] [address] [place] [address] WBC 6.6 E9/L Normal 4.0-11.0 [facility] Comment on above: Performed By: #### 2 858488 ####[facility] [address] [place] [address] Capillary Glucose POCon 08-22 Glucose [Mass/Vol] 230 mg/dL High 55-99 [facility] Comment on above: Performed By: #### 2 78819831 ####[facility] [address] [place] [address] Glucose [Mass/Vol] 187 mg/dL High 55-99 [facility] Comment on above: Result Comment: Thelma maxwell RN/ Performed By: #### 2 31383487 ####[facility] [address] [place] [address] Glucose [Mass/Vol] 281 mg/dL High 55-99 [facility] Comment on above: Result Comment: Thelma maxwell RN/ Performed By: #### 2 46801848 ####[facility] [address] [place] [address] Glucose [Mass/Vol] 298 mg/dL High 55-99 [facility] Comment on above: Result Comment: Thelma maxwell RN/ Performed By: #### 2 68864602 ####[facility] [address] [place] [address] Glucose [Mass/Vol] 167 mg/dL High 55-99 [facility] Comment on above: Result Comment: Thelma maxwell RN/ Performed By: #### 2 85153155 ####[facility] [address] [place] [address] Interdisciplinary Note - Yimi e Manageron 09-15-2023 Interdisciplinary Note - Psychiatry Physician [facility] Comment on above: Result Comment: Elec tronically Signed By: Sasha Garcia\.br\Date and Time Signed: 09/15/23 15:52 EST Magnesiumon 09-15-2023 Magnesium [Mass/Vol] 1.7 mg/dL Normal 1.3-2.4 [facility] Comment on above: Performed By: #### 2 887929, 2947323, 57347256 ####[facility] [address] [place] [address] Progress Note-Physicianon Progress Note-Physician [facility] Comment on above: Result Comment: Elec tronically Signed By: Ida LYMAN, [facility] Raghavendra\.br\Date and Time Signed: 09/15/23 16:08 EST Progress Note-Physician Normal [facility] Comment on above: Result Comment: Elec tronically Signed By: Jose YLMAN, Kayla\.br\Date and Time Signed: 09/15/23 10:03 EST eGFRon 09-15-2023 eGFR 44 mL/min/1.73 m2 Low >=59 [facility] Comment on above: Order Comment: Order added by Discern Expert. Performed By: #### 2 038740, 9188474, 79397638 ####[facility] [address] [place] [address] BMPon 09-14-2023 Anion gap [Moles/Vol] 13 mmol/L Normal 6-16 [facility] Comment on above: Performed By: #### 2 586709, 29740348 ####[facility] [address] [place] [address] BUN/Creat Ratio 24 No Units High 10-20 [facility] Comment on above: Performed By: #### 2 370587, 03138960 ####[facility] [address] [place] [address] Calcium [Mass/Vol] 8.6 mg/dL Low 8.9-11.1 [facility] Comment on above: Performed By: #### 2 427502, 41709951 ####[facility] [address] [place] [address] Chloride [Moles/Vol] 94 mmol/L Low 101-111 [facility] Comment on above: Performed By: #### 2 486925, 51633274 ####[facility] [address] [place] [address] CO2 [Moles/Vol] 33 mmol/L High 21-31 [facility] Comment on above: Performed By: #### 2 642146, 05153408 ####[facility] [address] [place] [address] Creatinine [Mass/Vol] 1.9 mg/dL High 0.5-1.3 [facility] Comment on above: Performed By: #### 2 039063, 37095664 ####[facility] [address] [place] [address] Glucose [Mass/Vol] 215 mg/dL High 55-199 [facility] Comment on above: Performed By: #### 2 968957, 06690435 ####[facility] [address] [place] [address] Potassium [Moles/Vol] 4.3 mmol/L Normal 3.5-5.3 [facility] Comment on above: Performed By: #### 2 145163, 95901192 ####[facility] [address] [place] [address] Sodium [Moles/Vol] 136 mmol/L Normal 135-145 [facility] Comment on above: Performed By: #### 2 335399, 85247706 ####[facility] [address] [place] [address] Urea nitrogen [Mass/Vol] 46 mg/dL High 5-21 [facility] Comment on above: Performed By: #### 2 986812, 35657880 ####[facility] [address] [place] [address] Anion gap [Moles/Vol] 9 mmol/L Normal 6-16 [facility] Comment on above: Performed By: #### 1 0598390, 5940336 ####[facility] [address] [place] [address] BUN/Creat Ratio 26 No Units High 10-20 [facility] Comment on above: Performed By: #### 1 8721895, 4736976 ####[facility] [address] [place] [address] Calcium [Mass/Vol] 8.7 mg/dL Low 8.9-11.1 [facility] Comment on above: Performed By: #### 1 9317399, 6817955 ####[facility] [address] [place] [address] Chloride [Moles/Vol] 96 mmol/L Low 101-111 [facility] Comment on above: Performed By: #### 1 0841349, 2421165 ####[facility] [address] [place] [address] CO2 [Moles/Vol] 35 mmol/L High 21-31 [facility] Comment on above: Performed By: #### 1 7207974, 0529252 ####[facility] [address] [place] [address] Creatinine [Mass/Vol] 1.8 mg/dL High 0.5-1.3 [facility] Comment on above: Performed By: #### 1 7845881, 7968215 ####[facility] [address] [place] [address] Glucose [Mass/Vol] 226 mg/dL High 55-199 [facility] Comment on above: Performed By: #### 1 2694214, 3994251 ####[facility] [address] [place] [address] Potassium [Moles/Vol] 4.4 mmol/L Normal 3.5-5.3 [facility] Comment on above: Performed By: #### 1 3179297, 8489781 ####[facility] [address] [place] [address] Sodium [Moles/Vol] 136 mmol/L Normal 135-145 [facility] Comment on above: Performed By: #### 1 5520690, 2507250 ####[facility] [address] [place] [address] Urea nitrogen [Mass/Vol] 46 mg/dL High 5-21 [facility] Comment on above: Performed By: #### 1 5900299, 7276803 ####[facility] [address] [place] [address] Anion gap [Moles/Vol] 8 mmol/L Normal 6-16 [facility] Comment on above: Performed By: #### 2 718665, 5900397, 3840387, 00427575 ####[facility] [address] [place] [address] BUN/Creat Ratio 25 No Units High 10-20 [facility] Comment on above: Performed By: #### 2 609069, 6627506, 6426254, 41556560 ####[facility] [address] [place] [address] Calcium [Mass/Vol] 8.3 mg/dL Low 8.9-11.1 [facility] Comment on above: Performed By: #### 2 620886, 1744946, 2546012, 05454687 ####[facility] [address] [place] [address] Chloride [Moles/Vol] 97 mmol/L Low 101-111 [facility] Comment on above: Performed By: #### 2 201024, 1765768, 9827043, 38418132 ####[facility] [address] [place] [address] CO2 [Moles/Vol] 36 mmol/L High 21-31 [facility] Comment on above: Performed By: #### 2 154987, 5104983, 0198495, 44879612 ####[facility] [address] [place] [address] Creatinine [Mass/Vol] 1.9 mg/dL High 0.5-1.3 [facility] Comment on above: Performed By: #### 2 363069, 6347196, 1912316, 74175039 ####[facility] [address] [place] [address] Glucose [Mass/Vol] 172 mg/dL Normal 55-199 [facility] Comment on above: Performed By: #### 2 475602, 4661822, 8618864, 11535090 ####[facility] [address] [place] [address] Potassium [Moles/Vol] 4.5 mmol/L Normal 3.5-5.3 [facility] Comment on above: Performed By: #### 2 533412, 9904986, 7996730, 60195506 ####[facility] [address] [place] [address] Sodium [Moles/Vol] 136 mmol/L Normal 135-145 [facility] [facility] Comment on above: Performed By: #### 2 089728, 6984944, 1445476, [id number] ####[facility] [address] [place] [address] Urea nitrogen [Mass/Vol] 47 mg/dL High 5-21 [facility] Comment on above: Performed By: #### 2 994358, 6798322, 0997167, 19664793 ####[facility] [address] [place] [address] Anion gap [Moles/Vol] 10 mmol/L Normal 6-16 [facility] Comment on above: Performed By: #### 1 3225408, 5930920 ####[facility] [address] [place] [address] BUN/Creat Ratio 25 No Units High 10-20 [facility] Comment on above: Performed By: #### 1 3778737, 4391566 ####[facility] [address] [place] [address] Calcium [Mass/Vol] 8.3 mg/dL Low 8.9-11.1 [facility] Comment on above: Performed By: #### 1 1672192, 8871803 ####[facility] [address]ks[address] [place] [address] Chloride [Moles/Vol] 96 mmol/L Low 101-111 [facility] Comment on above: Performed By: #### 1 8832061, 7514736 ####[facility] [address]zb[address]qv[address] [address] CO2 [Moles/Vol] 35 mmol/L High 21-31 [facility] Comment on above: Performed By: #### 1 6169730, 7380159 ####[facility] [address]chs[address] [place] [address] Creatinine [Mass/Vol] 1.9 mg/dL High 0.5-1.3 [facility] Comment on above: Performed By: #### 1 6192624, 5331098 ####[facility] [address] [place] [address] Glucose [Mass/Vol] 284 mg/dL High 55-199 [facility] Comment on above: Performed By: #### 1 2631731, 7994753 ####[facility] [address] [place] [address] Potassium [Moles/Vol] 4.6 mmol/L Normal 3.5-5.3 [facility] Comment on above: Performed By: #### 1 5802911, 0135653 ####[address] [place] [address] Sodium [Moles/Vol] 136 mmol/L Normal 135-145 [facility] Comment on above: Performed By: #### 1 0049785, 7096515 ####[address] [address] Urea nitrogen [Mass/Vol] 48 mg/dL High 5-21 [facility] Comment on above: Performed By: #### 1 2850330, 6551470 ####[address] [address] CBC w/ Auto Diffon 4 Basophil Absolute 0.1 E9/L Normal 0.0-0.2 [facility] Comment on above: Performed By: #### 2 876175, 3723710, 6913205, 42159086 ####[address] [address] Basophils/100 WBC (Bld) 1.0 % Normal 0.0-2.0 [facility] Comment on above: Performed By: #### 2 257891, 0660632, 5076262, 45227706 ####[address] [address] Eos Absolute 0.2 E9/L Normal 0.0-0.5 [facility] Comment on above: Performed By: #### 2 335462, 9469007, 6936081, 71637354 ####[address] [address] Eosinophils/100 WBC (Bld) 3.1 % Normal 0.0-8.0 [facility] Comment on above: Performed By: #### 2 095356, 5216424, 2130286, 29674973 ####[address] [address] Erythrocyte distribution width (RBC) [Ratio] 18.1 % High 10.9-14.2 [facility] Comment on above: Performed By: #### 2 362619, 7764004, 7459796, 29183074 ####[address] [place] [address] Hematocrit (Bld) [Volume fraction] 42.0 % Normal 37.7-49.0 [facility] Comment on above: Performed By: #### 2 428643, 4176463, 9819916, 61702043 ####[address] [address] Hemoglobin (Bld) [Mass/Vol] 13.3 g/dL Low 13.5-17.5 [facility] Comment on above: Performed By: #### 2 689306, 1742947, 2480419, 13525976 ####[address] [address] Lymph Absolute 1.9 E9/L Normal 1.0-4.0 [facility] Comment on above: Performed By: #### 2 996446, 1246601, 2604748, 12637654 ####[address] [address] Lymphocytes/100 WBC (Bld) 23.5 % Normal 14.0-50.0 [facility] Comment on above: Performed By: #### 2 734519, 0420011, 5469469, 64588669 ####[address] [address] MCH (RBC) [Entitic mass] 27.8 pg Normal 27.0-34.0 [facility] Comment on above: Performed By: #### 2 440723, 8784120, 9363179, 52841055 ####[address] [address] MCHC (RBC) [Mass/Vol] 31.7 g/dL Normal 31.4-36.0 [facility] Comment on above: Performed By: #### 2 442813, 3691893, 6389426, 66599365 ####[address] [address] MCV (RBC) [Entitic vol] 87.6 fL Normal 80.0-100.0 [facility] Comment on above: Performed By: #### 2 487893, 5059154, 3436574, 06195944 ####[facility] [address] [place] [address] Mccreary Absolute 0.8 E9/L Normal 0.2-1.0 [facility] Comment on above: Performed By: #### 2 976848, 0261516, 3661548, 50474010 ####[address] [address] Monocytes/100 WBC (Bld) 10.0 % Normal 4.0-14.0 [facility] Comment on above: Performed By: #### 2 688943, 8374020, 0783244, 66878190 ####[address] [address] Neutro Absolute 5.0 E9/L Normal 2.0-7.5 [facility] Comment on above: Performed By: #### 2 742485, 1195909, 7748030, 12683976 ####[address] [address] Neutro Auto 62.4 % Normal 36.0-75.0 [facility] Comment on above: Performed By: #### 2 045839, 6504251, 9113552, 73528670 ####[address] [address] Platelet 217.0 E9/L Normal 150.0-500.0 [facility] Comment on above: Performed By: #### 2 131197, 1972409, 6247527, 14853715 ####[address] [address] Platelet mean volume (Bld) [Entitic vol] 6.8 fL Normal 6.4-10.8 [facility] Comment on above: Performed By: #### 2 869508, 5537635, 6430149, 99591976 ####[facility] [address] [place] [address] RBC 4.8 E12/L Normal 4.3-5.9 [facility] Comment on above: Performed By: #### 2 939531, 9725978, 9458789, 97684931 ####[facility] [address] [place] [address] WBC 7.9 E9/L Normal 4.0-11.0 [facility] Comment on above: Performed By: #### 2 721795, 0224914, 5088495, 19809454 ####[facility] [address] [place] [address] CT Abdomen/Pelvis w/o Contra ston 09-14-2023 CT Abdomen/Pelvis w/o Contrast Normal [facility] Capillary Glucose POCon 08-22 Glucose [Mass/Vol] 294 mg/dL High 55-99 [facility] Comment on above: Result Comment: Thelma BAE Performed By: #### 2 50717184 ####[facility] [address] [place] [address] Glucose [Mass/Vol] 244 mg/dL High 55-99 [facility] Comment on above: Result Comment: Thelma BAE Performed By: #### 2 01556979 ####[facility] [address] [place] [address] Glucose [Mass/Vol] 284 mg/dL High 55-99 [facility] Comment on above: Result Comment: Thelma BAE Performed By: #### 2 84228631 ####[facility] [address] [place] [address] Glucose [Mass/Vol] 164 mg/dL High 55-99 [facility] Comment on above: Result Comment: Thelma BAE Performed By: #### 2 78490320 ####[facility] [address] [place] [address] Interdisciplinary Note - Yimi e Manageron 09-14-2023 Interdisciplinary Note - Psychiatry Physician Normal [facility] Comment on above: Result Comment: Elec tronically Signed By: Jodee Giang\.br\Date and Time Signed: 09/14/23 10:25 EST Interdisciplinary Note - Oscar n 09-14-2023 Interdisciplinary Note - OT OT [facility] six clicks score = SNF. Patient requires assist w/ all transfers and adls when compared to baseline. Pt does live home alone. Inpatient OT services to follow daily to progress as tolerates w/ functional skills. Normal [facility] Magnesiumon 09-14-2023 Magnesium [Mass/Vol] 1.8 mg/dL Normal 1.3-2.4 [facility] Comment on above: Performed By: #### 2 691406, 1554259, 3098518, 23319956 ####[facility] [address] [place] [address] Message from Medicareon 08-22 Message from Medicare [id number]# 1.00TIFF [facility] Monitor Recordon 09-14-2023 Monitor Record [id number]# 1.00TIFF [facility] Monitor Record [id number]# 1.00TIFF [facility] Progress Note-Physicianon Progress Note-Physician [facility] Comment on above: Result Comment: Elec tronically Signed By: Sasha Stevens NP\.br\Date and Time Signed: 09/14/23 15:54 EST\.br\Electronically Co-Signed By: Flakita Morgan MD\.br\Date and Time Co-Signed: 09/14/23 20:02 EST Progress Note-Physician [facility] Comment on above: Result Comment: Elec tronically Signed By: Shaquille Alex Jr., PA-C\.br\Date and Time Signed: 09/14/23 19:56 EST Progress Note-Physician [facility] Comment on above: Result Comment: Elec tronically Signed By: Rowdy LYMANUnruly\.br\Date and Time Signed: 09/14/23 19:53 EST Progress Note-Physician Normal [facility] Comment on above: Result Comment: Elec tronically Signed By: Kayla Garcia MD\.br\Date and Time Signed: 09/14/23 12:47 EST eGFRon 09-14-2023 eGFR 39 mL/min/1.73 m2 Low >=59 [facility] Comment on above: Order Comment: Order added by Discern Expert. Performed By: #### 2 702702, 09620581 ####[facility] [address] [place] [address] eGFR 41 mL/min/1.73 m2 Low >=59 [facility] Comment on above: Order Comment: Order added by Discern Expert. Performed By: #### 1 7532996, 8881037 ####[facility] [address] [place] [address] eGFR 39 mL/min/1.73 m2 Low >=59 [facility] Comment on above: Order Comment: Order added by Discern Expert. Performed By: #### 2 865893, 7303425, 0011134, 99836424 ####[facility] [address] [place] [address] eGFR 39 mL/min/1.73 m2 Low >=59 [facility] Comment on above: Order Comment: Order added by Discern Expert. Performed By: #### 1 5002568, 7797442 ####[facility] [address] [place] [address] BMPon 09-13-2023 Anion gap [Moles/Vol] 9 mmol/L Normal 6-16 [facility] Comment on above: Performed By: #### 2 754891, 46291963 ####[facility] [address] [place] [address] BUN/Creat Ratio 26 No Units High 10-20 [facility] Comment on above: Performed By: #### 2 439830, 22796460 ####[facility] [address] [place] [address] Calcium [Mass/Vol] 8.5 mg/dL Low 8.9-11.1 [facility] Comment on above: Performed By: #### 2 217872, 02172603 ####[facility] [address] [place] [address] Chloride [Moles/Vol] 96 mmol/L Low 101-111 [facility] Comment on above: Performed By: #### 2 003683, 12170860 ####[facility] [address] [place] [address] CO2 [Moles/Vol] 34 mmol/L High 21-31 [facility] Comment on above: Performed By: #### 2 138011, 59871068 ####[facility] [address] [address] Creatinine [Mass/Vol] 2.0 mg/dL High 0.5-1.3 [facility] Comment on above: Performed By: #### 2 419784, 92494595 ####[facility] [address] [place] [address] Glucose [Mass/Vol] 340 mg/dL High 55-199 [facility] Comment on above: Performed By: #### 2 088582, 54661183 ####[facility] [address] [place] [address] Potassium [Moles/Vol] 5.0 mmol/L Normal 3.5-5.3 [facility] Comment on above: Performed By: #### 2 300180, 62551812 ####[facility] [address] [place] [address] Sodium [Moles/Vol] 134 mmol/L Low 135-145 [facility] Comment on above: Performed By: #### 2 383189, 18651794 ####[facility] [address] [address] Urea nitrogen [Mass/Vol] 51 mg/dL High 5-21 [facility] Comment on above: Performed By: #### 2 132162, 91178514 ####[facility] [address] [place] [address] Anion gap [Moles/Vol] 10 mmol/L Normal 6-16 [facility] Comment on above: Performed By: #### 1 7591610, 5819257 ####[facility] [address] [place] [address] BUN/Creat Ratio 26 No Units High 10-20 [facility] Comment on above: Performed By: #### 1 9407915, 4093129 ####[facility] [address] [place] [address] Calcium [Mass/Vol] 8.6 mg/dL Low 8.9-11.1 [facility] Comment on above: Performed By: #### 1 3274158, 4142164 ####[facility] [address] [place] [address] Chloride [Moles/Vol] 100 mmol/L Low 101-111 [facility] Comment on above: Performed By: #### 1 9214307, 9217900 ####[facility] [address] [place] [address] CO2 [Moles/Vol] 33 mmol/L High 21-31 [facility] Comment on above: Performed By: #### 1 1035059, 0321399 ####[facility] [address] [place] [address] Creatinine [Mass/Vol] 2.0 mg/dL High 0.5-1.3 [facility] Comment on above: Performed By: #### 1 1888080, 1205383 ####[facility] [address] [place] [address] Glucose [Mass/Vol] 239 mg/dL High 55-199 [facility] Comment on above: Performed By: #### 1 2077707, 8083360 ####[facility] [address] [place] [address] Potassium [Moles/Vol] 5.0 mmol/L Normal 3.5-5.3 [facility] Comment on above: Performed By: #### 1 8065516, 8434664 ####[facility] [address] [place] [address] Sodium [Moles/Vol] 138 mmol/L Normal 135-145 [facility] Comment on above: Performed By: #### 1 6978291, 4588886 ####[facility] [address] [place] [address] Urea nitrogen [Mass/Vol] 51 mg/dL High 5-21 [facility] Comment on above: Performed By: #### 1 6018664, 2437752 ####[facility] [address] [place] [address] Anion gap [Moles/Vol] 10 mmol/L Normal 6-16 [facility] Comment on above: Performed By: #### 1 2314039, 8174243 ####[facility] [address] [place] [address] BUN/Creat Ratio 26 No Units High 10-20 [facility] Comment on above: Performed By: #### 1 2755350, 1248894 ####[facility] [address] [place] [address] Calcium [Mass/Vol] 8.7 mg/dL Low 8.9-11.1 [facility] Comment on above: Performed By: #### 1 0941096, 8942662 ####[facility] [address]bd[address] [place] [address] Chloride [Moles/Vol] 101 mmol/L Normal 101-111 [facility] Comment on above: Performed By: #### 1 3372478, 1009653 ####[facility] [address] [place] [address] CO2 [Moles/Vol] 33 mmol/L High 21-31 [facility] Comment on above: Performed By: #### 1 9713240, 5757198 ####[facility] [address] [place] [address] Creatinine [Mass/Vol] 2.0 mg/dL High 0.5-1.3 [facility] Comment on above: Performed By: #### 1 6546670, 4030582 ####[facility] [address] [place] [address] Glucose [Mass/Vol] 149 mg/dL Normal 55-199 [facility] Comment on above: Performed By: #### 1 0273356, 0879472 ####[facility] [address] [place] [address] Potassium [Moles/Vol] 4.9 mmol/L Normal 3.5-5.3 [facility] Comment on above: Performed By: #### 1 1612632, 5089273 ####[facility] [address] [place] [address] Sodium [Moles/Vol] 139 mmol/L Normal 135-145 [facility] Comment on above: Performed By: #### 1 3857627, 5761862 ####[facility] [address] [place] [address] Urea nitrogen [Mass/Vol] 51 mg/dL High 5-21 [facility] Comment on above: Performed By: #### 1 2932333, 4823094 ####[facility] [address] [place] [address] Anion gap [Moles/Vol] 11 mmol/L Normal 6-16 [facility] Comment on above: Performed By: #### 2 349576, 34225508 ####[facility] [address] [place] [address] BUN/Creat Ratio 26 No Units High 10-20 [facility] Comment on above: Performed By: #### 2 033050, 86917373 ####[facility] [address] [place] [address] Calcium [Mass/Vol] 8.6 mg/dL Low 8.9-11.1 [facility] Comment on above: Performed By: #### 2 137590, 34250174 ####[facility] [address] [place] [address] Chloride [Moles/Vol] 103 mmol/L Normal 101-111 [facility] Comment on above: Performed By: #### 2 996250, 64696880 ####[facility] [address] [place] [address] CO2 [Moles/Vol] 31 mmol/L Normal 21-31 [facility] Comment on above: Performed By: #### 2 228822, 60258013 ####[facility] [address] [place] [address] Creatinine [Mass/Vol] 2.1 mg/dL High 0.5-1.3 [facility] Comment on above: Performed By: #### 2 309462, 06532140 ####[facility] [address] [place] [address] Glucose [Mass/Vol] 154 mg/dL Normal 55-199 [facility] Comment on above: Performed By: #### 2 085086, 43224581 ####[facility] [address] [place] [address] Potassium [Moles/Vol] 5.2 mmol/L Normal 3.5-5.3 [facility] Comment on above: Performed By: #### 2 658036, 90613835 ####[facility] [address] [place] [address] Sodium [Moles/Vol] 140 mmol/L Normal 135-145 [facility] Comment on above: Performed By: #### 2 681388, 78223055 ####[facility] [address] [place] [address] Urea nitrogen [Mass/Vol] 54 mg/dL High 5-21 [facility] Comment on above: Performed By: #### 2 155906, 86874629 ####[facility] [address] [place] [address] Anion gap [Moles/Vol] 8 mmol/L Normal 6-16 [facility] Comment on above: Performed By: #### 2 292922, 7518824, 23823002 ####[facility] [address] [place] [address] BUN/Creat Ratio 25 No Units High 10-20 [facility] Comment on above: Performed By: #### 2 587278, 2541260, 65356833 ####[facility] [address] [place] [address] Calcium [Mass/Vol] 8.3 mg/dL Low 8.9-11.1 [facility] Comment on above: Performed By: #### 2 355072, 4141066, 61334279 ####[facility] [address] [place] [address] Chloride [Moles/Vol] 104 mmol/L Normal 101-111 [facility] Comment on above: Performed By: #### 2 512097, 2666932, 89781910 ####[facility] [address] [place] [address] CO2 [Moles/Vol] 33 mmol/L High 21-31 [facility] Comment on above: Performed By: #### 2 748989, 0246379, 17233849 ####[facility] [address] [place] [address] Creatinine [Mass/Vol] 2.2 mg/dL High 0.5-1.3 [facility] Comment on above: Performed By: #### 2 998837, 3958287, 96077285 ####[facility] [address] [place] [address] Glucose [Mass/Vol] 170 mg/dL Normal 55-199 [facility] Comment on above: Performed By: #### 2 626015, 1609481, 12996192 ####[facility] [address] [place] [address] Potassium [Moles/Vol] 5.4 mmol/L High 3.5-5.3 [facility] Comment on above: Performed By: #### 2 515498, 4488790, 48263036 ####[facility] [address] [place] [address] Sodium [Moles/Vol] 140 mmol/L Normal 135-145 [facility] Comment on above: Performed By: #### 2 912960, 6019256, 61317997 ####[facility] [address] [place] [address] Urea nitrogen [Mass/Vol] 55 mg/dL High 5-21 [facility] Comment on above: Performed By: #### 2 631098, 9707500, 40370229 ####[facility] [address] [place] [address] Anion gap [Moles/Vol] 10 mmol/L Normal 6-16 [facility] Comment on above: Performed By: #### 2 341855, 85310467 ####[facility] [address] [place] [address] BUN/Creat Ratio 24 No Units High 10-20 [facility] Comment on above: Performed By: #### 2 725935, 20413615 ####[facility] [address] [place] [address] Calcium [Mass/Vol] 8.6 mg/dL Low 8.9-11.1 [facility] Comment on above: Performed By: #### 2 155215, 77281614 ####[facility] [address] [place] [address] Chloride [Moles/Vol] 105 mmol/L Normal 101-111 [facility] Comment on above: Performed By: #### 2 159480, 46877715 ####[facility] [address] [place] [address] CO2 [Moles/Vol] 30 mmol/L Normal 21-31 [facility] Comment on above: Performed By: #### 2 015344, 60289663 ####[facility] [address] [place] [address] Creatinine [Mass/Vol] 2.3 mg/dL High 0.5-1.3 [facility] Comment on above: Performed By: #### 2 697456, 91235714 ####[facility] [address] [place] [address] Glucose [Mass/Vol] 208 mg/dL High 55-199 [facility] Comment on above: Performed By: #### 2 045665, 36356589 ####[facility] [address]le[address] [place] [address] Potassium [Moles/Vol] 5.2 mmol/L Normal 3.5-5.3 [facility] Comment on above: Performed By: #### 2 351217, 97730520 ####[facility] [address] [place] [address] Sodium [Moles/Vol] 140 mmol/L Normal 135-145 [facility] Comment on above: Performed By: #### 2 197788, 96630489 ####[address] [address] Urea nitrogen [Mass/Vol] 54 mg/dL High 5-21 [facility] Comment on above: Performed By: #### 2 017849, 56170797 ####[facility] [address]um[address] [place] [address] Blood Gas Art, with Lytes, G hugh, [place] 09-13-2023 a/A Ratio Art 37.80 % Normal >=0.80 [facility] Comment on above: Performed By: #### 4 68154384 ####[facility] [address] [place] [address] AaDO2 Art 150.0 mmHg High 5.0-15.0 [facility] Comment on above: Performed By: #### 4 70418511 ####[facility] [address] [place] [address] ACT. Rate 16 Invalid Interpretation Code [facility] Comment on above: Performed By: #### 4 [id number] ####[facility] [address] [place] [address] Allens Test Positive Normal [facility] Comment on above: Performed By: #### 4 [id number] ####[facility] [address] [place] [address] Base Excess Arterial 6.3 mmol/L Normal >=2.8 [facility] Comment on above: Performed By: #### 4 [id number] ####[address] [place] [address] BiPAP 09/04 Invalid Interpretation Code [facility] Comment on above: Performed By: #### 4 [id number] ####[address] [place] [address] cCa2+ Art 4.87 mg/dL Normal 4.40-5.30 [facility] Comment on above: Performed By: #### 4 [id number] ####[address] [address] cCl- Art 102.0 mmol/L Normal 101.0-111.0 [facility] Comment on above: Performed By: #### 4 [id number] ####[address] [address] cGlu Art 162 mg/dL High 55-99 [facility] Comment on above: Performed By: #### 4 [id number] ####[address] [address] cK+ Art 5.3 mmol/L Normal 3.5-5.3 [facility] Comment on above: Performed By: #### 4 [id number] ####[address] [address] cLac Art .7 mmol/L Normal .5-2.2 [facility] Comment on above: Performed By: #### 4 [id number] ####[address] [address] smudger+ Art 143.0 mmol/L Normal 135.0-145.0 [facility] Comment on above: Performed By: #### 4 19181946 ####[address] [address] Drawn by tsb Invalid Interpretation Code [facility] Comment on above: Performed By: #### 4 [id number] ####[facility] [address] [place] [address] FCOHb Art 1.1 % Low 1.5-4.9 [facility] Comment on above: Result Comment: Refe rence rangeNonsmoker <1.5%Smoker <5.0%Heavy Smoker <9.0% Performed By: #### 4 [id number] ####[facility] [address] [place] [address] FIO2 BG 45.0 Invalid Interpretation Code [facility] Comment on above: Performed By: #### 4 [id number] ####[address] [address] FMetHb Art 0.5 % Normal 0.0-1.9 [facility] Comment on above: Performed By: #### 4 [id number] ####[address] [address] FO2Hb Art 95.9 % Normal 93.0-100.0 [facility] Comment on above: Performed By: #### 4 [id number] ####[address] [address] HCO3 (Bld) [Moles/Vol] 30.1 mmol/L High 22.0-26.0 [facility] Comment on above: Performed By: #### 4 [id number] ####[address] [address] Hemoglobin (Bld) [Mass/Vol] 14.3 g/dL Normal 12.0-17.0 [facility] Comment on above: Performed By: #### 4 [id number] ####[address] [place] [address] MECH. Rate 14 Invalid Interpretation Code [facility] Comment on above: Performed By: #### 4 [id number] ####[address] [address] MV 13 Invalid Interpretation Code [facility] Comment on above: Performed By: #### 4 [id number] ####[facility] [address] [place] [address] Oxygen saturation in Blood 97.5 % Normal 95.0-100.0 [facility] Comment on above: Performed By: #### 4 05107855 ####[address] [address] P CO2 Arterial 66.6 mmHg High 35.0-45.0 [facility] Comment on above: Performed By: #### 4 04152437 ####[address] [address] P O2 Arterial 91.1 mmHg Normal 80.0-100.0 [facility] Comment on above: Performed By: #### 4 92415177 ####[address] [address] pH Arterial 7.326 Low 7.350-7.450 [facility] Comment on above: Performed By: #### 4 56024182 ####[address] [address] Sample Site R Radial Normal [facility] Comment on above: Performed By: #### 4 [id number] ####[address] [address] Sample Type Arterial Draw Normal [facility] Comment on above: Performed By: #### 4 [id number] ####[address] [address] CBC w/ Auto Diffon 4 Basophil Absolute 0.0 E9/L Normal 0.0-0.2 [facility] Comment on above: Performed By: #### 2 557882, 2320179, 66918482 ####[address] [address] Basophils/100 WBC (Bld) 0.4 % Normal 0.0-2.0 [facility] Comment on above: Performed By: #### 2 251822, 6324163, 77427238 ####[address] [address] Eos Absolute 0.0 E9/L Normal 0.0-0.5 [facility] Comment on above: Performed By: #### 2 697442, 5486550, 12587624 ####[address] [address] Eosinophils/100 WBC (Bld) 0.0 % Normal 0.0-8.0 [facility] Comment on above: Performed By: #### 2 288918, 2175904, 00299619 ####[address] [address] Erythrocyte distribution width (RBC) [Ratio] 17.6 % High 10.9-14.2 [facility] Comment on above: Performed By: #### 2 333718, 7528931, 28308052 ####[address] Hematocrit (Bld) [Volume fraction] 43.0 % Normal 37.7-49.0 [facility] Comment on above: Performed By: #### 2 858882, 0612117, 75184690 ####[address] [address] Hemoglobin (Bld) [Mass/Vol] 13.6 g/dL Normal 13.5-17.5 [facility] Comment on above: Performed By: #### 2 890391, 4704509, 16038062 ####[address] [address] Lymph Absolute 0.7 E9/L Low 1.0-4.0 [facility] Comment on above: Performed By: #### 2 332711, 1844177, 04510082 ####[address] [address] Lymphocytes/100 WBC (Bld) 10.8 % Low 14.0-50.0 [facility] Comment on above: Performed By: #### 2 570028, 8846005, 98022169 ####[address] [address] MCH (RBC) [Entitic mass] 27.7 pg Normal 27.0-34.0 [facility] Comment on above: Performed By: #### 2 947362, 9301349, 54038632 ####[address] [address] MCHC (RBC) [Mass/Vol] 31.6 g/dL Normal 31.4-36.0 [facility] Comment on above: Performed By: #### 2 353341, 3540965, 61660682 ####[address] [address] MCV (RBC) [Entitic vol] 87.5 fL Normal 80.0-100.0 [facility] Comment on above: Performed By: #### 2 573782, 0543805, 14936352 ####[address] [address] Mccreary Absolute 0.6 E9/L Normal 0.2-1.0 [facility] Comment on above: Performed By: #### 2 257552, 7927023, 97847436 ####[address] [address] Monocytes/100 WBC (Bld) 9.5 % Normal 4.0-14.0 [facility] Comment on above: Performed By: #### 2 753746, 5473153, 39235075 ####[address] [address] Neutro Absolute 5.0 E9/L Normal 2.0-7.5 [facility] Comment on above: Performed By: #### 2 761402, 1997829, 15426328 ####[address] [address] Neutro Auto 79.3 % High 36.0-75.0 [facility] Comment on above: Performed By: #### 2 319859, 3334678, 11954969 ####[facility] [address] [place] [address] Platelet 207.0 E9/L Normal 150.0-500.0 [facility] Comment on above: Performed By: #### 2 556275, 0109084, 43673070 ####[facility] [address] [place] [address] Platelet mean volume (Bld) [Entitic vol] 7.2 fL Normal 6.4-10.8 [facility] Comment on above: Performed By: #### 2 043499, 7970388, 72297231 ####[address] [address] RBC 4.9 E12/L Normal 4.3-5.9 [facility] Comment on above: Performed By: #### 2 956309, 5258854, 28103082 ####[address] [address] WBC 6.3 E9/L Normal 4.0-11.0 [facility] Comment on above: Performed By: #### 2 332740, 1604852, 34207745 ####[address] [address] Capillary Glucose POCon 08-22 Glucose [Mass/Vol] 357 mg/dL High 55-99 [facility] Comment on above: Result Comment: Thelma BAE Performed By: #### 2 [id number] ####[address] [address] Glucose [Mass/Vol] 235 mg/dL High 55-99 [facility] Comment on above: Result Comment: Thelma BAE Performed By: #### 2 59311283 ####[address] [address] Glucose [Mass/Vol] 153 mg/dL High 55-99 [facility] Comment on above: Result Comment: Thelma BAE Performed By: #### 2 59633696 ####[address] [place] [address] Glucose [Mass/Vol] 137 mg/dL [address] Comment on above: Result Comment: Thelma BAE Performed By: #### 2 61297079 ####[facility] [address] [place] [address] Glucose [Mass/Vol] 157 mg/dL High [address] [place] [address] Comment on above: Result Comment: Thelma BAE Performed By: #### 2 61808509 ####[facility] [address] [place] [address] Glucose [Mass/Vol] 169 mg/dL [address] Comment on above: Result Comment: Thelma BAE Performed By: #### 2 [id number] ####[facility] [address] [place] [address] Glucose [Mass/Vol] 166 mg/dL [address] Comment on above: Result Comment: Thelma BAE Performed By: #### 2 43778700 ####[facility] [address] [place] [address] Glucose [Mass/Vol] 170 mg/dL [address] Comment on above: Result Comment: Thelma BAE Performed By: #### 2 68064413 ####[facility] [address] [place] [address] Glucose [Mass/Vol] 165 mg/dL [address] Comment on above: Performed By: #### 2 96460778 ####[facility] [address] [place] [address] Glucose [Mass/Vol] 159 mg/dL [address] Comment on above: Result Comment: Thelma BAE Performed By: #### 2 99026999 ####[facility] [address] [place] [address] Glucose [Mass/Vol] 178 mg/dL [address] Comment on above: Result Comment: Thelma BAE Performed By: #### 2 23824410 ####[facility] [address] [place] [address] Glucose [Mass/Vol] 143 mg/dL High 55-99 [facility] Comment on above: Result Comment: Thelma maxwell RN/ Performed By: #### 2 91342417 ####[facility] [address] [place] [address] Glucose [Mass/Vol] 192 mg/dL High -[address] [place] [address] Comment on above: Result Comment: Thelma maxwell RN/ Performed By: #### 2 66181422 ####[facility] [address] [place] [address] Glucose [Mass/Vol] 201 mg/dL High -[address] [place] [address] Comment on above: Result Comment: Thelma maxwell RN/ Performed By: #### 2 05464298 ####[facility] [address] [place] [address] Glucose [Mass/Vol] 242 mg/dL High -[address] [place] [address] Comment on above: Result Comment: Thelma maxwell RN/ Performed By: #### 2 [id number] ####[facility] [address] [place] [address] Coding Queryon 09-13-2023 Coding Query Normal [facility] Coding Query Normal [facility] Consultation Noteon 09-13-19 Consultation Note Normal [facility] Comment on above: Result Comment: Elec tronically Signed By: Rowdy LYMAN, Unruly Laurent\.br\Date and Time Signed: 09/13/23 19:06 EST Consultation Note Normal [facility] Comment on above: Result Comment: Elec tronically Signed By: Flakita Morgan MD\.br\Date and Time Signed: 09/13/23 10:18 EST [facility] [employer] w/ C ontraston 09-13-2023 Echo [employer]st[employer] w/ Contrast Normal [facility] YyaI8jgo 09-13-2023 HbA1c (Bld) [Mass fraction] 11.8 % High <=5.9 [facility] Comment on above: Order Comment: Order placed by EKM rule. [id number] [place] Performed By: #### 7 [id number] ####[facility] [address] [place] [address] Insurance Correspondence Off iceon 09-13-2023 Insurance Correspondence Office [id number] #1.00TIFF [facility] Interdisciplinary Note - Yimi e Manageron 09-13-2023 Interdisciplinary Note - Psychiatry Physician [facility] Comment on above: Result Comment: Elec tronically Signed By: Jodee Giang\.br\Date and Time Signed: 09/13/23 14:06 EST Interdisciplinary Note - PTo n 09-13-2023 Interdisciplinary Note - PT [facility] Monitor Recordon 09-13-2023 Monitor Record [id number]# 1.00TIFF [facility] Monitor Record [id number]# 1.00TIFF [facility] Monitor Record [id number]# 1.00TIFF [facility] Monitor Record [id number]# 1.00TIFF [facility] Monitor Record [id number]# 1.00TIFF [facility] Monitor Record [id number]# 1.00TIFF [facility] Nursing Note - Woundon 09-13 Nursing Note - Wound [id number]# 2.00TIFF [facility] Progress Note-Physicianon Progress Note-Physician [facility] Comment on above: Result Comment: Elec tronically Signed By: Ida LYMAN, Pippa Mabry\.br\Date and Time Signed: 09/13/23 15:56 EST Progress Note-Physician Normal [facility] Comment on above: Result Comment: Elec tronically Signed By: Jose LYMAN, Kayla\.br\Date and Time Signed: 09/13/23 11:23 EST Respiratory Panel by PCRon 0 09-13-2023 Adenovirus DNA ERIBERTO+non-probe Ql (Nph) Not detected Normal [facility] Comment on above: Result Comment: Test ing was performed using nucleic acid amplification including Influenza A, Influenza A H1, Influenza A H3, Influenza B, RSV A, RSV B, Adenovirus, Human Metapneumovirus, Parainfluenza 1,2,3, and 4, Rhinovirus, Bordetella parapertussis/bronchiseptica, Bordetella holmesii, and Bordetella pertussis. Performed By: #### 1 [id number] ####[address] [place] [address] B. parapertussis DNA ERIBERTO+probe Ql (Upper resp) Not detected Normal Not Detected [facility] Comment on above: Performed By: #### 1 [id number] ####[facility] [address] [place] [address] B. pertussis DNA ERIBERTO+probe Ql (Upper resp) Not detected Normal Not Detected [facility] Comment on above: Performed By: #### 1 [id number] ####[facility] [address] [place] [address] FLUAV H1 RNA ERIBERTO+non-probe Ql (Nph) Not detected Normal [facility] Comment on above: Performed By: #### 1 870284259 ####[facility] [address] [place] [address] FLUAV H3 RNA ERIBERTO+non-probe Ql (Nph) Not detected Normal [facility] Comment on above: Performed By: #### 1 523947191 ####[facility] [address] [place] [address] FLUAV RNA ERIBERTO+non-probe Ql (Nph) Not detected Normal [facility] Comment on above: Performed By: #### 1 260921912 ####[facility] [address] [place] [address] FLUBV RNA ERIBERTO+non-probe Ql (Nph) Not detected Normal [facility] Comment on above: Performed By: #### 1 677400834 ####[facility] [address] [place] [address] Human Metapneumovirus Not detected Normal [facility] Comment on above: Result Comment: This test result should be correlated with clinical presentations and medical history by a healthcare provider to determine its clinical significance. Performed By: #### 1 [id number] ####[facility] [address] [place] [address] Parainfluenza virus 1 RNA ERIBERTO+non-probe Ql (Nph) Not detected Normal [facility] Comment on above: Performed By: #### 1 [id number] ####[address] [place] [address] Parainfluenza virus 2 RNA ERIBERTO+non-probe Ql (Nph) Not detected Normal [facility] Comment on above: Performed By: #### 1 [id number] ####[facility] [address] [place] [address] Parainfluenza virus 3 RNA ERIBERTO+non-probe Ql (Nph) Not detected Normal [facility] Comment on above: Performed By: #### 1 [id number] ####[facility] [address] [place] [address] Parainfluenza virus 4 RNA ERIBERTO+non-probe Ql (Nph) Not detected Normal [facility] Comment on above: Performed By: #### 1 527134255 ####[facility] [address] [place] [address] Resp Panel Intrl QC Pass [facility] Comment on above: Performed By: #### 1 [id number] ####[facility] [address] [place] [address] Rhinovirus+Enterovir us RNA ERIBERTO+non-probe Ql (Nph) Not detected Normal [facility] Comment on above: Performed By: #### 1 225093331 ####[facility] [address] [place] [address] RSV RNA ERIBERTO+non-probe Ql (Nph) Not detected Normal [facility] Comment on above: Performed By: #### 1 812755110 ####[address] [address] UA With Cult Reflexon 2023 Bilirubin Ql (U) Negative Normal Negative [facility] Comment on above: Performed By: #### 1 [id number] ####[address] [address] Clarity (U) CLEAR Normal Clear [facility] Comment on above: Performed By: #### 1 6615601 ####[address] [address] Color (U) YELLOW Normal Yellow [facility] Comment on above: Performed By: #### 1 6222534 ####[address] [address] Epithelial cells.squamous LM.HPF (Urine sed) [#/Area] 0-2 Normal 0-2 [facility] Comment on above: Performed By: #### 1 0603745 ####[address] [address] Glucose Test strip (U) [Mass/Vol] 3+ Abnormal Negative [facility] Comment on above: Performed By: #### 1 4477741 ####[address] [address] Hemoglobin Ql (U) 1+ Abnormal Negative [facility] Comment on above: Performed By: #### 1 4736940 ####[address] [address] Ketones (U) [Mass/Vol] Negative Normal Negative [facility] Comment on above: Performed By: #### 1 2130992 ####[address] [address] Bode.plasma/Lithi um.RBC (Bld) [Mass ratio] 0-3 Normal 0-3 [facility] Comment on above: Performed By: #### 1 9299984 ####[facility] [address] [place] [address] Nitrite Ql (U) Negative Normal Negative [facility] Comment on above: Performed By: #### 1 2935963 ####[address] [address] pH (U) 5.5 [pH] Invalid Interpretation Code 5.0-9.0 [facility] Comment on above: Performed By: #### 1 0244757 ####[address] [address] Protein (U) [Mass/Vol] TRACE Abnormal Negative [facility] Comment on above: Performed By: #### 1 6687397 ####[address] [address] Specific gravity (U) [Rel density] 1.015 Invalid Interpretation Code 1.005-1.030 [facility] Comment on above: Performed By: #### 1 1281469 ####[address] [address] Type of Urine collection method Clean Catch Normal [facility] Comment on above: Performed By: #### 1 1637657 ####[address] [address] Urobilinogen Qn (U) 0.2 {Itz'U}/dL Normal 0.0-1.0 [facility] Comment on above: Performed By: #### 1 5292454 ####[address] [address] WBC Auto Ql (U) Negative Normal Negative [facility] Comment on above: Performed By: #### 1 1213493 ####[address] [address] WBC LM.HPF (Urine sed) [#/Area] 0-5 Normal 0-5 [facility] Comment on above: Performed By: #### 1 4750457 ####[facility] [address] [place] [address] US LE Venous Duplex Bilatera aria 09-13-2023 US LE Venous Duplex Bilateral Normal [facility] US Renalon 09-13-2023 US Renal Normal [facility] XR Chest Single Viewon 09-13 XR Chest Single View Normal Fish er [facility] eGFRon 09-13-2023 eGFR 36 mL/min/1.73 m2 Low >=59 [facility] Comment on above: Order Comment: Order added by Discern Expert. Performed By: #### 2 813466, [id number] ####[facility] [address] [place] [address] eGFR 36 mL/min/1.73 m2 Low >=59 [facility] Comment on above: Order Comment: Order added by Discern Expert. Performed By: #### 1 [id number], 6224716 ####[facility] [address] [place] [address] eGFR 36 mL/min/1.73 m2 Low >=59 [facility] Comment on above: Order Comment: Order added by Discern Expert. Performed By: #### 1 5897150, 6655298 ####[facility] [address] [place] [address] eGFR 34 mL/min/1.73 m2 Low >=59 [facility] Comment on above: Order Comment: Order added by Discern Expert. Performed By: #### 2 033512, 65946630 ####[facility] [address] [place] [address] eGFR 32 mL/min/1.73 m2 Low >=59 [facility] Comment on above: Order Comment: Order added by Discern Expert. Performed By: #### 2 158687, 2827761, [id number] ####[address] [place] [address] eGFR 31 mL/min/1.73 m2 Low >=59 [facility] Comment on above: Order Comment: Order added by Discern Expert. Performed By: #### 2 331351, [id number] ####[facility] [address] [place] [address] BMPon 09-12-2023 Anion gap [Moles/Vol] 12 mmol/L Normal 6-16 [facility] Comment on above: Performed By: #### 1 0588375, 6320116 ####[facility] [address] [place] [address] BUN/Creat Ratio 23 No Units High 10-20 [facility] Comment on above: Performed By: #### 1 4229554, 1354016 ####[facility] [address] [place] [address] Calcium [Mass/Vol] 8.4 mg/dL Low 8.9-11.1 [facility] Comment on above: Performed By: #### 1 4800908, 3603098 ####[facility] [address] [place] [address] Chloride [Moles/Vol] 102 mmol/L Normal 101-111 [facility] Comment on above: Performed By: #### 1 4207616, 8524401 ####[facility] [address] [place] [address] CO2 [Moles/Vol] 30 mmol/L Normal 21-31 [facility] Comment on above: Performed By: #### 1 2760849, 2724771 ####[facility] [address] [place] [address] Creatinine [Mass/Vol] 2.5 mg/dL High 0.5-1.3 [facility] Comment on above: Performed By: #### 1 5777743, 9730480 ####[facility] [address] [place] [address] Glucose [Mass/Vol] 463 mg/dL Abnormal 55-199 [facility] Comment on above: Result Comment: Crit ical Result Verified by Previous ResultCritical Result [id number] Called to and read back by: MARLEN SHEETS at: 09/12/2023 22:01:54 by:PRADEEP KERR Performed By: #### 1 5601419, [id number] ####[facility] [address] [place] [address] Potassium [Moles/Vol] 5.6 mmol/L High 3.5-5.3 [facility] Comment on above: Performed By: #### 1 9351537, 6949072 ####[facility] [address] [place] [address] Sodium [Moles/Vol] 138 mmol/L Normal 135-145 [facility] Comment on above: Performed By: #### 1 7369848, 6143066 ####[facility] [address] [place] [address] Urea nitrogen [Mass/Vol] 57 mg/dL High 5-21 [facility] Comment on above: Performed By: #### 1 1448548, 8591496 ####[facility] [address] [place], [place] [address] Anion gap [Moles/Vol] 12 mmol/L Normal 6-16 [facility] Comment on above: Performed By: #### 2 124850, 66714836, 2217605 ####[facility] [address] [place] [address] BUN/Creat Ratio 22 No Units High 10-20 [facility] Comment on above: Performed By: #### 2 434016, 96491202, 3569349 ####[facility] [address] [place] [address] Calcium [Mass/Vol] 8.4 mg/dL Low 8.9-11.1 [facility] Comment on above: Performed By: #### 2 278950, 63369423, 8170099 ####[facility] [address] [place] [address] Chloride [Moles/Vol] 100 mmol/L Low 101-111 [facility] Comment on above: Performed By: #### 2 289861, 15119910, 6888566 ####[facility] [address] [place] [address] CO2 [Moles/Vol] 28 mmol/L Normal 21-31 [facility] Comment on above: Performed By: #### 2 452511, 86933632, 0403569 ####[facility] [address] [place] [address] Creatinine [Mass/Vol] 2.6 mg/dL High 0.5-1.3 [facility] Comment on above: Performed By: #### 2 763331, 89818350, 9246658 ####[facility] [address] [place] [address] Glucose [Mass/Vol] 575 mg/dL Abnormal 55-199 [facility] Comment on above: Result Comment: Crit ical Result S_GLU:575 Called to and read back by: MARLEN SHEETS at: 09/12/2023 18:59:19 by:PRADEEP Stevensal Result Verified by Previous Result Performed By: #### 2 873594, 29642863, 8937426 ####[address] [address] Potassium [Moles/Vol] 6.5 mmol/L Abnormal 3.5-5.3 [facility] Comment on above: Result Comment: Crit ical Result S_K:6.5 Called to and read back by: MARLEN SHEETS at: 09/12/2023 18:59:19 by:PRADEEP AIKENritical Result Verified by Previous Result Performed By: #### 2 925714, 66885977, 2647010 ####[facility] [address] [place] [address] Sodium [Moles/Vol] 133 mmol/L Low 135-145 [facility] Comment on above: Performed By: #### 2 024669, 09209084, 2023411 ####[facility] [address] [place] [address] Urea nitrogen [Mass/Vol] 57 mg/dL High 5-21 [facility] Comment on above: Performed By: #### 2 810262, 41981820, 9993192 ####[facility] [address] [place] [address] BNPon 09-12-2023 Natriuretic peptide B (Bld) [Mass/Vol] 245 pg/mL High 5-80 [facility] Comment on above: Performed By: #### 1 3769602, 470524955, 7104396, 3773062415, 61481393, 7392061, 5978470, 69042538, 1536366, 4150060 ####[facility] [address] [place] [address] BOHBon 09-12-2023 Beta HB Qnt 0.17 mmol/L Normal 0.02-0.27 [facility] Comment on above: Performed By: #### 1 2062257, 070322889, 8261776, 8280140912, 31601393, 2639079, 8706079, 20783963, 8377661, 6571373 ####[facility] [address] [place] [address] Blood Gas Art, with Lytes, G hugh, [place] 09-12-2023 a/A Ratio Art 26.80 % Normal >=0.80 [facility] Comment on above: Performed By: #### 4 60171898 ####[facility] [address] [place] [address] AaDO2 Art 281.8 mmHg High 5.0-15.0 [facility] Comment on above: Performed By: #### 4 30701595 ####[address] [address] Allens Test Positive Normal [facility] Comment on above: Performed By: #### 4 82258586 ####[facility] [address] [place] [address] Base Excess Arterial 2.9 mmol/L Normal >=2.8 [facility] Comment on above: Performed By: #### 4 43566711 ####[facility] [address] [place] [address] BiPAP 20/8 Invalid Interpretation Code [facility] Comment on above: Performed By: #### 4 40287350 ####[facility] [address] [place] [address] cCa2+ Art 4.64 mg/dL Normal 4.40-5.30 [facility] Comment on above: Performed By: #### 4 32821763 ####[facility] [address] [place] [address] cGlu Art 531 mg/dL Abnormal 55-99 [facility] Comment on above: Result Comment: Resu lts Called To DR GARCIA By DIANA MCKEON And Read Back For Confirmation On 09/12/2023 18:44:48 EST. Performed By: #### 4 90266256 ####[address] [address] cK+ Art 5.9 mmol/L High 3.5-5.3 [facility] Comment on above: Performed By: #### 4 71251269 ####[address] [address] cLac Art .6 mmol/L Normal .5-2.2 [facility] Comment on above: Performed By: #### 4 94803305 ####[address] [address] smudger+ Art 138.0 mmol/L Normal 135.0-145.0 [facility] Comment on above: Performed By: #### 4 20039962 ####[address] [place] [address] Drawn by [employer] Invalid Interpretation Code [facility] Comment on above: Performed By: #### 4 73153690 ####[address] [place] [address] FCOHb Art 1.4 % Low 1.5-4.9 [facility] Comment on above: Result Comment: Refe rence rangeNonsmoker <1.5%Smoker <5.0%Heavy Smoker <9.0% Performed By: #### 4 27621207 ####[address] [place] [address] FIO2 BG 65.0 Invalid Interpretation Code [facility] Comment on above: Performed By: #### 4 48659246 ####[address] [address] FMetHb Art 0.6 % Normal 0.0-1.9 [facility] Comment on above: Performed By: #### 4 21994736 ####[address] [address] FO2Hb Art 95.9 % Normal 93.0-100.0 [facility] Comment on above: Performed By: #### 4 48625660 ####[address] [address] HCO3 (Bld) [Moles/Vol] 27.0 mmol/L High 22.0-26.0 [facility] Comment on above: Performed By: #### 4 84685018 ####[address] [address] Hemoglobin (Bld) [Mass/Vol] 14.9 g/dL Normal 12.0-17.0 [facility] Comment on above: Performed By: #### 4 49112896 ####[address] [address] Oxygen saturation in Blood 97.9 % Normal 95.0-100.0 [facility] Comment on above: Performed By: #### 4 83875324 ####[address] [address] P CO2 Arterial 65.5 mmHg High 35.0-45.0 [facility] Comment on above: Performed By: #### 4 55211909 ####[address] [address] P O2 Arterial 103.0 mmHg High 80.0-100.0 [facility] Comment on above: Performed By: #### 4 24213780 ####[address] [address] pH Arterial 7.292 Low 7.350-7.450 [facility] Comment on above: Performed By: #### 4 96170778 ####[address] [place] [address] Sample Site L Radial Normal [facility] Comment on above: Performed By: #### 4 10926084 ####[address] [address] Sample Type Arterial Draw Normal [facility] Comment on above: Performed By: #### 4 91852622 ####[address] [place] [address] a/A Ratio Art 29.90 % Normal >=0.80 [facility] Comment on above: Performed By: #### 4 53595703 ####[address] [address] AaDO2 Art 192.2 mmHg High 5.0-15.0 [facility] Comment on above: Performed By: #### 4 85676214 ####[address] [place] [address] Allens Test Positive Normal [facility] Comment on above: Performed By: #### 4 97369754 ####[address] [place] [address] Base Excess Arterial -0.1 mmol/L Low >=2.8 [facility] Comment on above: Performed By: #### 4 06115869 ####[address] [place] [address] BiPAP / Invalid Interpretation Code [facility] Comment on above: Performed By: #### 4 75660529 ####[address] [place] [address] cCa2+ Art 4.76 mg/dL Normal 4.40-5.30 [facility] Comment on above: Performed By: #### 4 20515143 ####[address] [address] cCl- Art 100.0 mmol/L Low 101.0-111.0 [facility] Comment on above: Performed By: #### 4 42518046 ####[address] [place] [address] cGlu Art 555 mg/dL Abnormal 55-99 [facility] Comment on above: Result Comment: Resu lts Called To IRVING PECL By WILLEM WILKES _ And Read Back For Confirmation On _.09/12/2023 16:45:25 EST Performed By: #### 4 28150752 ####[address] [address] cK+ Art 6.3 mmol/L Abnormal 3.5-5.3 [facility] Comment on above: Result Comment: Resu lts Called To IR[facility] PECL By WILLEM WILKES _ And Read Back For Confirmation On _.09/12/2023 16:45:25 EST Performed By: #### 4 [id number] ####[address] [address] cLac Art .7 mmol/L Normal .5-2.2 [facility] Comment on above: Performed By: #### 4 64131361 ####[address] [address] smudger+ Art 135.0 mmol/L Normal 135.0-145.0 [facility] Comment on above: Performed By: #### 4 01429946 ####[address] [address] Drawn by WILLEM WILKES Invalid Interpretation Code [facility] Comment on above: Performed By: #### 4 07610559 ####[address] [address] FCOHb Art 2.1 % Normal 1.5-4.9 [facility] Comment on above: Result Comment: Refe rence rangeNonsmoker <1.5%Smoker <5.0%Heavy Smoker <9.0% Performed By: #### 4 27348956 ####[address] [place] [address] FIO2 BG 50 Invalid Interpretation Code [facility] Comment on above: Performed By: #### 4 84102376 ####[address] [address] FMetHb Art 0.1 % Normal 0.0-1.9 [facility] Comment on above: Performed By: #### 4 29246834 ####[address] [address] FO2Hb Art 93.3 % Normal 93.0-100.0 [facility] Comment on above: Performed By: #### 4 26898538 ####[address] [address] HCO3 (Bld) [Moles/Vol] 24.3 mmol/L Normal 22.0-26.0 [facility] Comment on above: Performed By: #### 4 78008647 ####[address] [address] Hemoglobin (Bld) [Mass/Vol] 14.8 g/dL Normal 12.0-17.0 [facility] Comment on above: Performed By: #### 4 36859604 ####[address] [address] Oxygen saturation in Blood 95.4 % Normal 95.0-100.0 [facility] Comment on above: Performed By: #### 4 20526518 ####[address] [address] P CO2 Arterial 69.6 mmHg High 35.0-45.0 [facility] Comment on above: Performed By: #### 4 48261439 ####[address] [address] P O2 Arterial 81.9 mmHg Normal 80.0-100.0 [facility] Comment on above: Performed By: #### 4 56530994 ####[address] [address] pH Arterial 7.235 Abnormal 7.350-7.450 [facility] Comment on above: Result Comment: Resu lts Called To IRVING ALEX By WILLEM WILKES _ And Read Back For Confirmation On _.09/12/2023 16:45:25 EST Performed By: #### 4 62190468 ####[facility] [address] [place] [address] Sample Site L Radial Normal [facility] Comment on above: Performed By: #### 4 [id number] ####[facility] [address] [place] [address] Sample Type Arterial Draw Normal [facility] Comment on above: Performed By: #### 4 [id number] ####[facility] [address] [place] [address] a/A Ratio Art 17.40 % Normal >=0.80 [facility] Comment on above: Performed By: #### 4 01770565 ####[facility] [address] [place] [address] AaDO2 Art 406.5 mmHg High 5.0-15.0 [facility] Comment on above: Performed By: #### 4 36220949 ####[facility] [address] [place] [address] Allens Test Positive Normal [facility] Comment on above: Performed By: #### 4 36814393 ####[facility] [address] [place] [address] Base Excess Arterial -0.1 mmol/L Low >=2.8 [facility] Comment on above: Performed By: #### 4 44342342 ####[facility] [address] [place] [address] cCa2+ Art 4.75 mg/dL Normal 4.40-5.30 [facility] Comment on above: Performed By: #### 4 76654495 ####[facility] [address] [place] [address] cCl- Art 98.0 mmol/L Low 101.0-111.0 [facility] Comment on above: Performed By: #### 4 54925062 ####[facility] [address] [place] [address] cGlu Art 579 mg/dL Abnormal 55-99 [facility] Comment on above: Result Comment: Resu lts Called To nicole myers By korina hebert And Read Back For Confirmation On 09/12/2023 14:09:29 EST. Performed By: #### 4 [id number] ####[facility] [address] [place] [address] cK+ Art 6.0 mmol/L High 3.5-5.3 [facility] Comment on above: Performed By: #### 4 59333520 ####[facility] [address] [place] [address] cLac Art .9 mmol/L Normal .5-2.2 [facility] Comment on above: Performed By: #### 4 63920478 ####[facility] [address] [place] [address] smudger+ Art 134.0 mmol/L Low 135.0-145.0 [facility] Comment on above: Performed By: #### 4 44427061 ####[facility] [address] [place] [address] Device Non Rebreather Mask Normal [facility] Comment on above: Performed By: #### 4 [id number] ####[facility] [address] [place] [address] Drawn by korina clement Invalid Interpretation Code [facility] Comment on above: Performed By: #### 4 79704259 ####[facility] [address] [place] [address] FCOHb Art 2.2 % Normal 1.5-4.9 [facility] Comment on above: Result Comment: Refe rence rangeNonsmoker <1.5%Smoker <5.0%Heavy Smoker <9.0% Performed By: #### 4 71821633 ####[address] [place] [address] FIO2 BG 80 Invalid Interpretation Code [facility] Comment on above: Performed By: #### 4 [id number] ####[address] [place] [address] FO2Hb Art 94.1 % Normal 93.0-100.0 [facility] Comment on above: Performed By: #### 4 12817254 ####[address] [address] HCO3 (Bld) [Moles/Vol] 24.3 mmol/L Normal 22.0-26.0 [facility] Comment on above: Performed By: #### 4 42070291 ####[address] [address] Hemoglobin (Bld) [Mass/Vol] 14.7 g/dL Normal 12.0-17.0 [facility] Comment on above: Performed By: #### 4 [id number] ####[address] [address] Oxygen saturation in Blood 96.2 % Normal 95.0-100.0 [facility] Comment on above: Performed By: #### 4 10698585 ####[address] [address] P CO2 Arterial 65.1 mmHg High 35.0-45.0 [facility] Comment on above: Performed By: #### 4 35566035 ####[address] [address] P O2 Arterial 85.6 mmHg Normal 80.0-100.0 [facility] Comment on above: Performed By: #### 4 47698441 ####[address] [facility] [place] [address] pH Arterial 7.254 Low 7.350-7.450 [facility] Comment on above: Performed By: #### 4 90788146 ####[address] [address] Sample Site L Radial Normal [facility] Comment on above: Performed By: #### 4 27439124 ####[facility] [address] [place] [address] Sample Type Arterial Draw Normal [facility] Comment on above: Performed By: #### 4 67732711 ####[address] [place] [address]1257 CBC w/ Auto Diffon 4 Basophil Absolute 0.1 E9/L Normal 0.0-0.2 [facility] Comment on above: Performed By: #### 1 6709208, 601547296, 8064506, 7161776029, 21719427, 3020088, 6099810, 34550889, 4371527, 9129912 ####[place] [address] Basophils/100 WBC (Bld) 1.0 % Normal 0.0-2.0 [facility] Comment on above: Performed By: #### 1 3394483, 689544924, 0256132, 1187114915, 21849664, 7412368, 6975256, 54793171, 9178426, 9089220 ####[facility] [address] [place], [place] [address] Eos Absolute 0.2 E9/L Normal 0.0-0.5 [facility] Comment on above: Performed By: #### 1 9412397, 358396799, 1547744, 4524910135, 28687354, 1494332, 3731118, 86458569, 0759827, 2325470 ####[address] [place] [address] Eosinophils/100 WBC (Bld) 2.9 % Normal 0.0-8.0 [facility] Comment on above: Performed By: #### 1 6782213, 323144454, 5348965, 9545816159, 38175397, 2435000, 1019746, 06210663, 7537247, 4277304 ####[address] [place] [address] Erythrocyte distribution width (RBC) [Ratio] 18.2 % High 10.9-14.2 [facility] Comment on above: Performed By: #### 1 9796711, 967247471, 6899103, 9461911659, 28930471, 8740100, 5829115, 92859914, 5907669, 7327154 ####[address] [place] [address] Hematocrit (Bld) [Volume fraction] 46.0 % Normal 37.7-49.0 [facility] Comment on above: Performed By: #### 1 0079322, 748164909, 8605871, 7415202688, 04401986, 5510937, 9290727, 25477123, 3112794, 5925370 ####[address] [address] Hemoglobin (Bld) [Mass/Vol] 14.2 g/dL Normal 13.5-17.5 [facility] Comment on above: Performed By: #### 1 8653058, 715073657, 0722389, 7464131035, 45350523, 2668442, 8448403, 44455395, 9368142, 6911117 ####[address] [address] Lymph Absolute 1.0 E9/L Normal 1.0-4.0 [facility] Comment on above: Performed By: #### 1 2490031, 688246034, 9154044, 9910099663, 80256171, 9983095, 3148338, 39148685, 9147570, 3989711 ####[address] [address] Lymphocytes/100 WBC (Bld) 14.0 % Normal 14.0-50.0 [facility] Comment on above: Performed By: #### 1 1503977, 190811168, 0579003, 8169765068, 53457729, 9863893, 0198913, 89337532, 2299362, 8279445 ####[address] [place] [address] MCH (RBC) [Entitic mass] 27.7 pg Normal 27.0-34.0 [facility] Comment on above: Performed By: #### 1 8871131, 584544812, 8483158, 3181395728, 33032053, 9168693, 7439308, 12338572, 1367733, 7497116 ####[address] [address] MCHC (RBC) [Mass/Vol] 30.8 g/dL Low 31.4-36.0 [facility] Comment on above: Performed By: #### 1 7452218, 063592268, 8316798, 7718338725, 34233213, 0010406, 4781831, 60898225, 4860412, 4895950 ####[address] [address] MCV (RBC) [Entitic vol] 90.0 fL Normal 80.0-100.0 [facility] Comment on above: Performed By: #### 1 7436507, 405350485, 7135785, 7401680780, 69097468, 5137593, 1342442, 19323158, 5576523, 3664392 ####[address] [place] [address] Mccreary Absolute 0.8 E9/L Normal 0.2-1.0 [facility] Comment on above: Performed By: #### 1 3786190, 550296629, 8473152, 2518951590, 57597773, 0233085, 6655983, 24782120, 0612869, 3736364 ####[address] [place] [address] Monocytes/100 WBC (Bld) 11.3 % Normal 4.0-14.0 [facility] Comment on above: Performed By: #### 1 9628853, 418960816, 5293383, 8808107750, 67382042, 7857721, 6947288, 32336162, 8782091, 2425823 ####[address] [place] [address] Neutro Absolute 4.8 E9/L Normal 2.0-7.5 [facility] Comment on above: Performed By: #### 1 0672651, 083195159, 1172478, 6907240475, 13635317, 1437619, 8874284, 84280580, 3191170, 2594717 ####[address] [address] Neutro Auto 70.8 % Normal 36.0-75.0 [facility] Comment on above: Performed By: #### 1 4675091, 835312692, 7833485, 1707089331, 64921322, 5590730, 8931662, 21991629, 6421736, 2169985 ####[address] [address] Platelet 206.0 E9/L Normal 150.0-500.0 [facility] Comment on above: Performed By: #### 1 1190112, 762792920, 7512470, 6745184892, 80072493, 0450646, 8436930, 31837308, 0489429, 9543136 ####[address] [address] Platelet mean volume (Bld) [Entitic vol] 7.3 fL Normal 6.4-10.8 [facility] Comment on above: Performed By: #### 1 0172930, 620295671, 1144721, 5919138510, 66812006, 3688317, 4292832, 02789902, 5916571, 0151984 ####[address] [place] [address] RBC 5.1 E12/L Normal 4.3-5.9 [facility] Comment on above: Performed By: #### 1 0238619, 955822325, 5384614, 9068390945, 10436516, 6388261, 7002186, 97279043, 9983238, 1155680 ####[facility] [address] [place] [address] WBC 6.8 E9/L Normal 4.0-11.0 [facility] Comment on above: Performed By: #### 1 1303144, 457307388, 1272822, 3688716726, 07753091, 6416374, 1065177, 51433578, 6911828, 4256092 ####[address] [place] [address] CMPon 09-12-2023 Albumin [Mass/Vol] 3.3 g/dL Normal 3.3-5.0 [facility] Comment on above: Performed By: #### 1 7758019, 811183812, 8877796, 1967260308, 00120379, 2757335, 3889450, 18563679, 4516469, 0704598 ####[address] [address] Albumin/Globulin [Mass ratio] 1.1 {ratio} Normal 1.1-2.2 [facility] Comment on above: Performed By: #### 1 1957785, 662459989, 9041346, 7269295632, 93234967, 9953676, 4219884, 06639120, 9740018, 0353869 ####[address] [place] [address] Alk Phos 94 Int._Unit/L Normal 21-98 [facility] Comment on above: Performed By: #### 1 2096829, 299840979, 8274362, 4476776919, 34955307, 2100205, 8332394, 68605106, 5985345, 3871362 ####[address] [place] [address] ALT 14 Int._Unit/L Normal 6-46 [facility] Comment on above: Performed By: #### 1 1059892, 394535364, 9688507, 2646024772, 38274415, 0556891, 7254994, 53028865, 1561588, 1534642 ####[facility] [address] [place] [address] Anion gap [Moles/Vol] 10 mmol/L Normal 6-16 [facility] Comment on above: Performed By: #### 1 7071584, 207930571, 2047505, 3734084753, 92363163, 3594859, 8147108, 74742745, 0875865, 0534474 ####[facility] [address] [place] [address] AST 12 Int._Unit/L Normal 5-43 [facility] Comment on above: Performed By: #### 1 2387827, 392559697, 8137242, 4647663806, 20563177, 4622899, 3148668, 60810078, 8441088, 4527385 ####[address] [place] [address] Bili Total 0.6 mg/dL Normal 0.0-1.1 [facility] Comment on above: Performed By: #### 1 1688523, 813439115, 8663224, 9238165708, 72693000, 8503339, 2647941, 22635161, 6230762, 6008598 ####[address] [place] [address] BUN/Creat Ratio 21 No Units High 10-20 [facility] Comment on above: Performed By: #### 1 8661012, 214896429, 7683697, 4648201488, 26616969, 6891878, 7019988, 72281822, 8275639, 2197038 ####[address] [place] [address] Calcium [Mass/Vol] 8.3 mg/dL Low 8.9-11.1 [facility] Comment on above: Performed By: #### 1 7377303, 787200479, 8568754, 3390342800, 52673719, 6210614, 6253744, 22339780, 2202342, 5697430 ####[facility] [address] [place] [address] Chloride [Moles/Vol] 97 mmol/L Low 101-111 [facility] Comment on above: Performed By: #### 1 4072847, 344688770, 5958762, 2231594654, 37455831, 3619829, 1650169, 08900935, 5117678, 5048778 ####[facility] [address] [place] [address] CO2 [Moles/Vol] 29 mmol/L Normal 21-31 [facility] Comment on above: Performed By: #### 1 0095945, 641424807, 8697940, 3259666856, 34988867, 9751938, 3164629, 43184368, 6353128, 1235449 ####[facility] [address] [place] [address] Creatinine [Mass/Vol] 2.8 mg/dL High 0.5-1.3 [facility] Comment on above: Performed By: #### 1 0408646, 529676113, 4596447, 1310494493, 01941539, 4728752, 8701395, 73825536, 1092232, 9342471 ####[facility] [address] [place] [address] Globulin (S) [Mass/Vol] 3.1 g/dL Normal 1.4-4.0 [facility] [facility] Comment on above: Performed By: #### 1 [id number], [id number], 0954305, 1377741939, 99374113, 1540039, 0433554, 83837359, 1190961, 2432223 ####[facility] [address] [place] [address] Glucose [Mass/Vol] 560 mg/dL Abnormal 55-199 [facility] Comment on above: Result Comment: Crit ical Result Verified by Repeat AnalysisCritical Result S_GLU:560 Called to and read back by: ULICES BACA at: 09/12/2023 14:56:08 by:[id number] Performed By: #### 1 [id number], [id number], 1206648, [id number], 09863584, 8208672, 0021585, 58843739, 6354750, 0957949 ####[facility] [address] [place] [address] Potassium [Moles/Vol] 6.3 mmol/L Abnormal 3.5-5.3 [facility] Comment on above: Result Comment: Crit ical Result Verified by Repeat AnalysisCritical Result S_K:6.3 Called to and read back by: ULICES BACA at: 09/12/2023 14:56:08 by:[id number] Performed By: #### 1 0681292, 945285084, 0319215, 9509348926, 22605391, 3296939, 3049686, 74133059, 5027827, 5317696 ####[facility] [address] [place] [address] Protein [Mass/Vol] 6.4 g/dL Normal 6.0-7.8 [facility] Comment on above: Performed By: #### 1 3644796, 496814184, 9172291, 3545044071, 89986362, 1986838, 7951338, 11044916, 2811268, 7067344 ####[facility] [address] [place] [address] Sodium [Moles/Vol] 130 mmol/L Low 135-145 [facility] Comment on above: Performed By: #### 1 2748587, 055958798, 9835592, 2321222264, 64552965, 2438975, 7621674, 24903618, 2284604, 2929312 ####[facility] [address] [place] [address] Urea nitrogen [Mass/Vol] 59 mg/dL High 5-21 [facility] Comment on above: Performed By: #### 1 2169391, 081433672, 2835080, 7818455573, 95023671, 6701205, 8057723, 60105415, 1428162, 6846155 ####[facility] [address] [place] [address] Capillary Glucose POCon 08-22 Glucose [Mass/Vol] 298 mg/dL High 55-99 [facility] Comment on above: Performed By: #### 2 21497816 ####[facility] [address] [place] [address] Glucose [Mass/Vol] 336 mg/dL High 55-99 [facility] Comment on above: Result Comment: Thelma BAE Performed By: #### 2 [id number] ####[facility] [address] [place] [address] Glucose [Mass/Vol] 431 mg/dL High 55-99 [facility] Comment on above: Result Comment: Thelma BAE Performed By: #### 2 [id number] ####[facility] [address] [place] [address] Glucose [Mass/Vol] 468 mg/dL Abnormal 55-99 [facility] Comment on above: Performed By: #### 2 99467903 ####[facility] [address] [place] [address] Glucose Cap >500 Abnormal 55-99 [facility] Comment on above: Result Comment: Repe at Test Performed By: #### 2 13277260 ####[facility] [address] [place] [address] Glucose Cap >500 Abnormal 55-99 [facility] Comment on above: Result Comment: Pricila elbert Meter Performed By: #### 2 [id number] ####[address] [place] [address] Consent for Treatmenton 08-22 Consent for Treatment [id number]# 1.00TIFF Normal [facility] Consultation Noteon 09-12-19 24 Consultation Note Normal [facility] Comment on above: Result Comment: Elec tronically Signed By: Shaquille Alex Jr., PA-C\.br\Date and Time Signed: 09/12/23 17:54 EST ED Clinical Summaryon 2023 ED Clinical Summary Normal [facility] ED Note-Physicianon 09-12-19 ED Note-Physician Normal [facility] Comment on above: Result Comment: Elec tronically Signed By: Nicole Myers DO\.br\Date and Time Signed: 09/12/23 16:07 EST ED Patient Education Noteon 09-12-2023 ED Patient Education Note Normal [facility] ED Patient Summaryon 024 ED Patient Summary Normal [facility] Glucoseon 09-12-2023 Glucose [Mass/Vol] 533 mg/dL Abnormal 55-199 [facility] Comment on above: Result Comment: Crit ical Result Verified by Previous ResultCritical Result S_GLU:533 Called to and read back by: YI FERRER at: 09/12/2023 19:24:47 by:PRADEEP KERR Performed By: #### 2 643577 ####[facility] [address] [place] [address] Influenza A&B Agon Influenzae A Ag Negative Normal Negative [facility] Comment on above: Performed By: #### 2 [id number], 10964712 ####[facility] [address] [place] [address] Influenzae B Ag Negative Normal Negative [facility] Comment on above: Result Comment: Test sensitivity and specificity vary for age group, specimen type, antigen types, and prevalence of disease. Test results must be evaluated in conjunction with other clinical data available to the physician. Individuals who received nasally administered Influenza A vaccine may have positive test results up to 3 days after vaccination. Performed By: #### 2 [id number], [id number] ####[facility] [address] [facility] [place] [address] Lactic Acidon 09-12-2023 Lactic Acid Lvl 1.2 mmol/L Normal 0.5-2.2 [facility] Comment on above: Performed By: #### 2 681037 ####[facility] [address] [place] [address] Lactic Acid Lvl 1.2 mmol/L Normal 0.5-2.2 [facility] Comment on above: Performed By: #### 1 7232783, 311163264, 1626925, 3144662373, 13452562, 2570742, 7336020, 22115990, 1687946, 3790706 ####[facility] [address] [place] [address] Lipase Levelon 09-12-2023 Lipase Lvl 14 unit/L Normal 13-58 [facility] Comment on above: Performed By: #### 1 0842939, 249233945, 0263046, 2308544383, 12534602, 6375664, 2378015, 73639232, 6345958, 6355729 ####[facility] [address] [place] [address] Monitor Recordon 09-12-2023 Monitor Record [id number]# 1.00TIFF Normal [facility] Monitor Record [id number]# 1.00TIFF Normal [facility] Monitor Record [id number]# 1.00TIFF Normal [facility] Monitor Record [id number]# 1.00TIFF Normal [facility] Monitor Record [id number]# 1.00TIFF Normal [facility] PT & PTTon 09-12-2023 aPTT Coag (PPP) [Time] 32.5 second(s) Normal 25.1-36.5 [facility] Comment on above: Result Comment: Para meter 15 days - 4 weeks 1 - 5 months 6 - 11 months 1 - 5 years 6 - 10 years 11 - 17 years PTT Mean: 35.4 (27.6-45.6) Mean: 33.5 (24.8-40.7) Mean: 32.4 (25.1-40.7) Mean: 31.6 (24.0-39.2) Mean: 31.6 (26.9-38.7) Mean: 31.0 (24.6-38.4) Pediatric Reference ranges were obtained from a study by Isaiah Hallman et al. prepared from 1437 samples obtained at 7 different centers using the same coagulation reagent and instrumentation [place] [facility] [place] Currently there are no coagulation studies available worldwide for children to 14 days, and no normal ranges. Heparin therapeutic range (represented by Anti-Factor Xa activity of 0.2 - 0.4 U/mL) corresponds to PTT of 56.6 - 109.0 sec. Performed By: #### 1 8049288, 556134534, 8497591, 5469632047, 61743971, 3915998, 8649265, 32856508, 1079323, 5096042 ####[facility] [address] [place] [address] INR Coag (PPP) [Relative time] 1.1 {INR} Invalid Interpretation Code [facility] Comment on above: Result Comment: INR results are specifically intended to assess patients stabilized on long-term Anticoagulation therapy suggested INR?s ?Less Intensive Anticoagulation? 2.0 ? 3.0Conventional Range 3.0 ? 4.5 Performed By: #### 1 1683591, 380055505, 1829344, 0229817441, 01863930, 8655835, 7659836, 96008681, 6145296, 0726624 ####[facility] [address] [place] [address] PT Coag (PPP) [Time] 12.0 second(s) Normal 9.4-12.5 [facility] Comment on above: Result Comment: 15 d ays - 4 weeks 1 - 5 months 6 -11 months 1- 5 years 6-10 years 11 -17 years Mean: 11.2 (9.5-12.6) Mean: 11.0 (9.7-12.8) Mean: 11.0 (9.8-13.0) Mean: 11.3 (9.9-13.4) Mean: 11.7 (10.0-14.6) Mean: 11.8 (10.0 - 14.1) Pediatric Reference ranges were obtained from a study by Isaiah Hallman et al. prepared from 1437 samples obtained at 7 different centers using the same coagulation reagent and instrumentation [place] [facility] [place]. Currently there are no coagulation studies available worldwide for children to 14 days, and no normal ranges. Performed By: #### 1 2167230, 793722847, 4948344, 4528184774, 11752608, 9417590, 6898236, 17713250, 7175486, 3092157 ####[facility] [address] [place] [address] Pre-Arrival Noteon Pre-Arrival Note Normal [facility] Procalcitoninon 09-12-2023 Procalcitonin .10 ng/mL Normal .00-.50 [facility] Comment on above: Result Comment: <0.5 ng/mL Low risk of severe sepsis and/or shock>2.0 ng/mL High risk of severe sepsis and/or shockConcentrations under 0.5 ng/mL do not exclude local infections or systemic infections in their initial stages (e.g.. under six hours from onset of illness). PCT concentrations between 0.5 and 2.0 ng/mL should be interpreted with consideration of the patient's history. In this range, it is recommended to retest PCT within 6 to 24 hours. Performed By: #### 1 2604943, 474267575, 9429052, 0238780252, 13577378, 1053022, 3777294, 86971946, 6764490, 0207995 ####[facility] [address] [place] [address] Rapid COVID Antigen [place] [place]on 09-12-2023 Rapid COV Int NEG Ctl Pass Normal [facility] Comment on above: Performed By: #### 2 [id number], 90103373 ####[facility] [address] [place] [address] Rapid COV Int POS Ctl Pass Normal [facility] Comment on above: Performed By: #### 2 [id number], 56368397 ####[facility] [address] [place] [address] SARS-CoV+SARS-CoV-2 (COVID-19) Ag IA.rapid Ql (Resp) Not detected Normal Not Detected [facility] Comment on above: Result Comment: The Flimmer? System for Rapid Detection of SARS-CoV-2 is a chromatographic digital immunoassay intended for the direct and qualitative detection of SARS-CoV-2 nucleocapsid antigens in nasal swabs from individuals who are suspected of COVID-19 by their healthcare provider within the first five days of the onset of symptoms. Negative results should be treated as presumptive, do not rule out SARS-CoV-2 infection and should not be used as the sole basis for treatment or patient management decisions, including infection control decisions. Negative results should be considered in the context of a patient?s recent exposures, history and the presence of clinical signs and symptoms consistent with COVID-19, and confirmed with a molecular assay, if necessary, for patient management. For in vitro diagnostic use. In the [place], only for use under an Emergency Use Authorization. In the [place], this test has not been FDA cleared or approved; this test has been authorized by FDA under an EUA for use by authorized laboratories; use by laboratories certified under the CLIA, 42 U.S.C. ?263a, that meet requirements to perform moderate, high, or waived complexity tests and at the Point of Care (POC), i.e., in patient care settings operating under a CLIA Certificate of Waiver, Certificate of Compliance, or Certificate of Accreditation.This test has been authorized only for the detection of proteins from SARS-CoV-2, not for any other viruses or pathogens; and, in the [place], this test is only authorized for the duration of the declaration that circumstances exist justifying the authorization of emergency use of in vitro diagnostics for detection and/or diagnosis of the virus that causes COVID-19 under Section 564(b)(1) of the Act, 21 U.S.C. ? 360bbb-3(b)(1), unless the authorization is terminated or revoked sooner. Performed By: #### 2 [id number], [id number] ####[facility] [address] [place] [address] Triglycerideson 09-12-2023 Triglyceride [Mass/Vol] 131 mg/dL Normal <=149 [facility] Comment on above: Performed By: #### 2 281888, 01732753, 1764888 ####[facility] [address] [place] [address] Troponinon 09-12-2023 Troponin 59.30 pg/mL Abnormal 15.90-38.40 [facility] Comment on above: Result Comment: Crit ical Result Verified by Repeat AnalysisCritical Result I_TnIHS:59.3 Called to and read back by: ULICES BACA at: 09/12/2023 16:43:58 by:[id number] 95% CI (Confidence Interval) PPV (Positive Predictive Value) for myocardial infarction in females is 38 pg/mL, in males 51 pg/mL. The results should be used in conjunction with clinical conditions of myocardial infarction.(Access High Sensitivity Troponin I Instructions For Use, [employer], March 2018) Performed By: #### 1 0981705, 069673401, 9610788, 3856643783, 24634594, 7736322, 2257946, 76261283, 7168334, 5938681 ####[facility] [address] [place] [address] U Drug Screenon 09-12-2023 U Amph Scr Negative Invalid Interpretation Code [facility] Comment on above: Performed By: #### 2 835383 ####[facility] [address] [place] [address] U Jo-Ann Scr Negative Invalid Interpretation Code [facility] Comment on above: Performed By: #### 2 471663 ####[facility] [address] [place] [address] U Benzodia Scr Negative Invalid Interpretation Code [facility] Comment on above: Performed By: #### 2 540720 ####[facility] [address] [place] [address] U Cannab Scr Negative Invalid Interpretation Code [facility] Comment on above: Performed By: #### 2 489924 ####[facility] [address] [place] [address] U Cocaine Scr Negative Invalid Interpretation Code [facility] Comment on above: Performed By: #### 2 244415 ####[facility] [address] [place] [address] U Opiate Scr Negative Invalid Interpretation Code [facility] Comment on above: Performed By: #### 2 423391 ####[facility] [address] [place] [address] U PCP Scr Negative Invalid Interpretation Code [facility] Comment on above: Performed By: #### 2 466211 ####[address] [address] UA With Cult Reflexon 2023 Bilirubin Ql (U) Negative Normal Negative [facility] Comment on above: Performed By: #### 1 0897489 ####[address] [address] Clarity (U) CLEAR Normal Clear [facility] Comment on above: Performed By: #### 1 2704191 ####[address] [address] Color (U) YELLOW Normal Yellow [facility] Comment on above: Performed By: #### 1 1108399 ####[facility] [address] [place] [address] Crystals LM Ql (Urine sed) Present Normal [facility] Comment on above: Performed By: #### 1 3495636 ####[facility] [address] [place] [address] Epithelial cells.squamous LM.HPF (Urine sed) [#/Area] 0-2 Normal 0-2 [facility] Comment on above: Performed By: #### 1 2410110 ####[facility] [address] [place] [address] Glucose Test strip (U) [Mass/Vol] 3+ Abnormal Negative [facility] Comment on above: Performed By: #### 1 2456674 ####[address] [address] Hemoglobin Ql (U) 1+ Abnormal Negative [facility] Comment on above: Performed By: #### 1 0876026 ####[address] [address] Ketones (U) [Mass/Vol] Negative Normal Negative [facility] Comment on above: Performed By: #### 1 2773710 ####[address] [address] Bode.plasma/Lithi um.RBC (Bld) [Mass ratio] 0-3 Normal 0-3 [facility] Comment on above: Performed By: #### 1 2616510 ####[address] [address] Nitrite Ql (U) Negative Normal Negative [facility] Comment on above: Performed By: #### 1 6143077 ####[address] [address] pH (U) 5.5 [pH] Invalid Interpretation Code 5.0-9.0 [facility] Comment on above: Performed By: #### 1 3004635 ####[address] [address] Protein (U) [Mass/Vol] 1+ Abnormal Negative [facility] Comment on above: Performed By: #### 1 5428546 ####[address] [address] Specific gravity (U) [Rel density] 1.015 Invalid Interpretation Code 1.005-1.030 [facility] Comment on above: Performed By: #### 1 7875223 ####[address] [address] Type of Urine collection method Clean Catch Normal [facility] Comment on above: Performed By: #### 1 8885732 ####[address] [address] Urobilinogen Qn (U) 0.2 {Itz'U}/dL Normal 0.0-1.0 [facility] Comment on above: Performed By: #### 1 1147207 ####[facility] [address] [place] [address] WBC Auto Ql (U) Negative Normal Negative [facility] Comment on above: Performed By: #### 1 7684602 ####[address] [place] [address] WBC LM.HPF (Urine sed) [#/Area] 0-5 Normal 0-5 [facility] Comment on above: Performed By: #### 1 7766788 ####[address] [place] [address] XR Chest Single Viewon 09-12 XR Chest Single View Normal [facility] eGFRon 09-12-2023 eGFR 28 mL/min/1.73 m2 Low >=59 [facility] Comment on above: Order Comment: Order added by Discern Expert. Performed By: #### 1 1605286, 7048817 ####[address] [address] eGFR 27 mL/min/1.73 m2 Low >=59 [facility] Comment on above: Order Comment: Order added by Discern Expert. Performed By: #### 2 415656, 30987414, 4058093 ####[address] [place] [address] eGFR 24 mL/min/1.73 m2 Low >=59 [facility] Comment on above: Order Comment: Order added by Discern Expert. Performed By: #### 1 1591571, 824648108, 2433893, 8240605572, 66205820, 4361905, 5353654, 34121390, 9527619, 5197490 ####[address] [place] [address] Consent for Procedure/Surger yon 09-11-2023 Consent for Procedure/Surgery [id number]# 1.00TIFF Normal Lang [facility] Correspondence - Woundon Correspondence - Wound [id number]# 1.00TIFF [facility] Consent for Procedure/Surger yon 09-05-2023 Consent for Procedure/Surgery [id number]# 1.00TIFF [facility] Consent for Treatmenton 08-21 Consent for Treatment [id number]#1 .00TIFF [facility] Correspondence - Woundon Correspondence - Wound [id number]# 1.00TIFF [facility] Correspondence - Wound [id number]# 1.00TIFF [facility] Insurance Correspondenceon 0 09-05-2023 Insurance Correspondence [id number]# 1.00TIFF [facility] Multi-Wound Charton 09-05-19 Multi-Wound Chart [id number]# 1.00TIFF [facility] Nursing Assessment - Woundon 09-05-2023 Nursing Assessment - Wound [id number]# 1.00TIFF [facility] Physician Orderon 09-05-2023 Physician Order [id number]# 1.00TIFF [facility] Progress Note - Woundon 08-21 Progress Note - Wound [id number]# 1.00TIFF [facility] No Panel InformationOrdered By: Elisa Ansari on 08-30-2023 GS Occasional White Blood Cells 3+ Gram Positive Cocci 3+ Gram Positive Rods 1+ Gram Negative Rods [facility] Basophils Auto (Bld) [#/Vol] Ordered By: Alban Arrington on 06-21-2023 Basophils (Bld) [#/Vol] 0.1 10*3/uL 0.0-0.2 [facility] Basophils/100 WBC Auto (Bld) Ordered By: Alban Arrington on 06-21-2023 Basophils/100 WBC (Bld) 0.7 % . [facility] Calcium [Mass/volume] in Ser um or PlasmaOrdered By: Alban Arrington on 06-21-2023 Calcium [Mass/Vol] 8.7 mg/dL 8.6-10.3 [facility] Carbon dioxide, total [Moles /volume] in Serum or PlasmaOrdered By: Alban Arrington on 06-21-2023 CO2 [Moles/Vol] 41.1 mmol/L 21.0-31.0 [facility] Chloride [Moles/volume] in S raymond or PlasmaOrdered By: Alban Arrington on 06-21-2023 Chloride [Moles/Vol] 100 mmol/L 98-107 [facility] Creatinine [Mass/volume] in Serum or PlasmaOrdered By: Alban Arrington on 06-21-2023 Creatinine [Mass/Vol] 1.60 mg/dL 0.70-1.30 [facility] Eosinophils Auto (Bld) [#/Vo l]Ordered By: Alban Arrington on 06-21-2023 Eosinophils (Bld) [#/Vol] 0.5 10*3/uL 0.0-0.45 [facility] Eosinophils/100 WBC Auto (Bl d)Ordered By: Alban Arrington on 06-21-2023 Eosinophils/100 WBC (Bld) 5.4 % . [facility] Erythrocyte distribution wid th Auto (RBC) [Ratio]Ordered By: Alban Arrington on 06-21-2023 Erythrocyte distribution width (RBC) [Ratio] 16.0 % 12.0-14.8 [facility] Glucose Glucometer (BldC) [M ass/Vol]Ordered By: Alban Arrington on 06-21-2023 Glucose [Mass/Vol] 200 mg/dL [facility] Comment on above: Random Glucose Refer ence Range is dependent on time and content of last meal. Glucose of more than 200 mg/dL in a nonstressed, ambulatory subject supports the diagnosis of Diabetes Mellitus. Glucose [Mass/volume] in Ser um or PlasmaOrdered By: Alban Arrington on 06-21-2023 Glucose [Mass/Vol] 60 mg/dL 70-100 [facility] Comment on above: Delta: 220 on -0739ADA recommended reference rangeRandom Glucose Reference Range is dependent on time and content of last meal. Glucose of more than 200 mg/dL in a nonstressed, ambulatory subject supports the diagnosis of Diabetes Mellitus. Hematocrit Auto (Bld) [Volum e fraction]Ordered By: Alban Arrington on 06-21-2023 Hematocrit (Bld) [Volume fraction] 46.3 % 38.8-50.0 [facility] Hemoglobin [Mass/volume] in BloodOrdered By: Alban Arrington on 06-21-2023 Hemoglobin (Bld) [Mass/Vol] 14.9 g/dL 13.0-17.0 [facility] Leukocytes [#/volume] correc maria guadalupe for nucleated erythrocytes in Blood by Automated counOrdered By: Alban Arrington on 06-21-2023 WBC corrected for nucl RBC Auto (Bld) [#/Vol] 9.5 10*3/uL 4.1-10.5 [facility] Lymphocytes Auto (Bld) [#/Vo l]Ordered By: Alban Arrington on 06-21-2023 Lymphocytes (Bld) [#/Vol] 2.5 10*3/uL 1.00-4.8 [facility] Lymphocytes/100 WBC Auto (Bl d)Ordered By: Alban Arrington on 06-21-2023 Lymphocytes/100 WBC (Bld) 26.3 % . [facility] MCH Auto (RBC) [Entitic mass ]Ordered By: Alban Arrington on 06-21-2023 MCH (RBC) [Entitic mass] 28.4 pg 27.5-35.2 [facility] MCHC Auto (RBC) [Mass/Vol]Or dered By: Alban Arrington on 06-21-2023 MCHC (RBC) [Mass/Vol] 32.2 g/dL 32.5-35.6 [facility] MCV Auto (RBC) [Entitic vol] Ordered By: Alban Arrington on 06-21-2023 MCV (RBC) [Entitic vol] 88.3 fL 83.5-101 [facility] Magnesium [Mass/volume] in S raymond or PlasmaOrdered By: Alban Arrington on 06-21-2023 Magnesium [Mass/Vol] 1.8 mg/dL 1.9-2.7 [facility] Monocytes Auto (Bld) [#/Vol] Ordered By: Alban Arrington on 06-21-2023 Monocytes (Bld) [#/Vol] 0.9 10*3/uL 0.0-0.8 [facility] Monocytes/100 WBC Auto (Bld) Ordered By: Alban Arrington on 06-21-2023 Monocytes/100 WBC (Bld) 9.9 % . [facility] Neutrophils Auto (Bld) [#/Vo l]Ordered By: Alban Arrington on 06-21-2023 Neutrophils (Bld) [#/Vol] 5.5 10*3/uL 1.8-7.7 [facility] Neutrophils/100 WBC Auto (Bl d)Ordered By: Alban Arrington on 06-21-2023 Neutrophils/100 WBC (Bld) 57.7 % . [facility] No Panel InformationOrdered By: Alban Arrington on 06-21-2023 Estimated GFR (CKD-EPI) 47.816 mL/Min [facility] Creatinine Clearance (Chem 69.61 [facility] Bedside Glucose #[address]/rn [facility] Bedside Glucose Comment See comment [facility] Comment on above: Glu2: Will Repeat Te st Nucleated erythrocytes [Pres ence] in Blood by Automated countOrdered By: Alban Arrington on 06-21-2023 Nucleated RBC Auto Ql (Bld) 0.1 /100{WBC} 0-0.5 [facility] Platelet mean volume Auto (B ld) [Entitic vol]Ordered By: Alban Arrington on 06-21-2023 Platelet mean volume (Bld) [Entitic vol] 7.1 fL 6.6-10.1 [facility] Platelets Auto (Bld) [#/Vol] Ordered By: Alban Arrington on 06-21-2023 Platelets (Bld) [#/Vol] 241 10*3/uL 150-450 [facility] Potassium [Moles/volume] in Serum or PlasmaOrdered By: Alban Arrington on 06-21-2023 Potassium [Moles/Vol] 4.4 mmol/L 3.5-5.1 [facility] RBC Auto (Bld) [#/Vol]Ordere d By: Alban Arrington on 06-21-2023 RBC (Bld) [#/Vol] 5.24 10*6/uL 3.90-5.60 [facility] Serum or plasma anion gap de terminationOrdered By: Alban Arrington on 06-21-2023 Anion gap [Moles/Vol] 6.3 mmol/L 6.0-15.0 [facility] Sodium [Moles/volume] in Ser um or PlasmaOrdered By: Alban Arrington on 06-21-2023 Sodium [Moles/Vol] 143 mmol/L 136-145 [facility] Urea nitrogen [Mass/volume] in Serum or PlasmaOrdered By: Alban Arrington on 06-21-2023 Urea nitrogen [Mass/Vol] 38 mg/dL 7-25 [facility] WBC Auto (Bld) [#/Vol]Ordere d By: Alban Arrington on 06-21-2023 WBC (Bld) [#/Vol] 9.5 10*3/uL 4.1-10.5 [facility] Laboratory - Chemistry and C hemistry - challengeOrdered By: Alban Arrington on 06-20-2023 CO2 [Moles/Vol] 38.0 mmol/L 23.0-27.0 [facility] HCO3 (Bld) [Moles/Vol] 36.0 mmol/L 23.0-29.0 [facility] No Panel InformationOrdered By: Alban Arrington on 06-20-2023 Arterial Blood Base Excess 8.1 mmol/L -3.0-3.0 [facility] Arterial Blood Oxygen Content 9.0 mmol/L 6.6-9.7 [facility] Arterial Blood Oxygen Saturation 94.1 % 95.0-100.0 [facility] Arterial Blood Partial Pressure CO2 63.6 mm[Hg] 35.0-45.0 [facility] Arterial Blood Partial Pressure O2 69.0 mm[Hg] 80.0-100.0 [facility] Arterial Blood pH 7.37 7.35-7.45 [facility] Blood Gas Critical Value See comment [facility] Comment on above: Critical Value dickerson d on: 06/20/2023 at 17:52 Blood Gas Liter Flow 5l L/min [facility] Blood Gas Sample Site Right radial [facility] FiO2 Na % [facility] Monocyte distribution width [Entitic volume] in Blood by AutomatedOrdered By: Alban Arrington on 06-19-2023 Monocyte distribution width Auto (Bld) [Entitic vol] 15.91 % 0.00-20.00 [facility] Automated erythrocytes count in urine sediment (number/area)Ordered By: Art Kirby on 06-18-2023 RBC Auto (Urine sed) [#/Area] 0-1 [HPF] 0-4 [facility] Automated leukocytes count i n urine sediment (number/area)Ordered By: Art Kirby on 06-18-2023 WBC Auto (Urine sed) [#/Area] None seen [HPF] 0-4 [facility] Basophils Auto (Bld) [#/Vol] Ordered By: Art Kirby on 06-18-2023 Basophils (Bld) [#/Vol] 0.0 10*3/uL 0.0-0.2 [facility] Basophils/100 WBC Auto (Bld) Ordered By: Art Kirby on 06-18-2023 Basophils/100 WBC (Bld) 0.7 % . [facility] Bilirubin Auto test strip Ql (U)Ordered By: Art Kirby on 06-18-2023 Bilirubin Ql (U) Negative Negative [facility] COVID CepheidOrdered By: Tanvir Kirby on 06-18-2023 SARS-CoV-2 (COVID-19) Ab IA Ql Negative Negative [facility] Comment on above: This is a duplicate Cepheid Xpert Xpress CoV-2/Flu/RSV Plus RNA by RT-PCR result to be used for statistical tracking purpose only. SARS-CoV-2 (COVID-19) RNA ERIBERTO+probe Ql (Unsp spec) [facility] Calcium [Mass/volume] in Ser um or PlasmaOrdered By: Art Kirby on 06-18-2023 Calcium [Mass/Vol] 8.8 mg/dL 8.6-10.3 [facility] Carbon dioxide, total [Moles /volume] in Serum or PlasmaOrdered By: Art Kirby on 06-18-2023 CO2 [Moles/Vol] 33.2 mmol/L 21.0-31.0 [facility] Chloride [Moles/volume] in S raymond or PlasmaOrdered By: Art Kirby on 06-18-2023 Chloride [Moles/Vol] 102 mmol/L 98-107 [facility] Creatinine [Mass/volume] in Serum or PlasmaOrdered By: Art Kirby on 06-18-2023 Creatinine [Mass/Vol] 1.51 mg/dL 0.70-1.30 [facility] Eosinophils Auto (Bld) [#/Vo l]Ordered By: Art Kirby on 06-18-2023 Eosinophils (Bld) [#/Vol] 0.2 10*3/uL 0.0-0.45 [facility] Eosinophils/100 WBC Auto (Bl d)Ordered By: Art Kirby on 06-18-2023 Eosinophils/100 WBC (Bld) 3.1 % . [facility] Erythrocyte distribution wid th Auto (RBC) [Ratio]Ordered By: Art Kirby on 06-18-2023 Erythrocyte distribution width (RBC) [Ratio] 15.4 % 12.0-14.8 [facility] Glucose [Mass/volume] in Ser um or PlasmaOrdered By: Art Kirby on 06-18-2023 Glucose [Mass/Vol] 294 mg/dL 70-100 [facility] Comment on above: ADA recommended refe rence rangeRandom Glucose Reference Range is dependent on time and content of last meal. Glucose of more than 200 mg/dL in a nonstressed, ambulatory subject supports the diagnosis of Diabetes Mellitus. Hematocrit Auto (Bld) [Volum e fraction]Ordered By: Art Kirby on 06-18-2023 Hematocrit (Bld) [Volume fraction] 46.7 % 38.8-50.0 [facility] Hemoglobin [Mass/volume] in BloodOrdered By: Art Kirby on 06-18-2023 Hemoglobin (Bld) [Mass/Vol] 14.9 g/dL 13.0-17.0 [facility] Ketones Auto test strip (U) [Mass/Vol]Ordered By: Art Kirby on 06-18-2023 Ketones (U) [Mass/Vol] Negative Negative [facility] Laboratory - UrinalysisOrder ed By: Art Kirby on 06-18-2023 Hyaline casts LM Ql (Urine sed) None seen [LPF] 0-8 [facility] Leukocytes [#/volume] correc maria guadalupe for nucleated erythrocytes in Blood by Automated counOrdered By: Art Kirby on 06-18-2023 WBC corrected for nucl RBC Auto (Bld) [#/Vol] 6.7 10*3/uL 4.1-10.5 [facility] Lymphocytes Auto (Bld) [#/Vo l]Ordered By: Art Kirby on 06-18-2023 Lymphocytes (Bld) [#/Vol] 1.4 10*3/uL 1.00-4.8 [facility] Lymphocytes/100 WBC Auto (Bl d)Ordered By: Art Kirby on 06-18-2023 Lymphocytes/100 WBC (Bld) 20.2 % . [facility] MCH Auto (RBC) [Entitic mass ]Ordered By: Art Kirby on 06-18-2023 MCH (RBC) [Entitic mass] 28.2 pg 27.5-35.2 [facility] MCHC Auto (RBC) [Mass/Vol]Or dered By: Art Kirby on 06-18-2023 MCHC (RBC) [Mass/Vol] 32.0 g/dL 32.5-35.6 [facility] MCV Auto (RBC) [Entitic vol] Ordered By: Art Kirby on 06-18-2023 MCV (RBC) [Entitic vol] 88.2 fL 83.5-101 [facility] Monocyte distribution width [Entitic volume] in Blood by AutomatedOrdered By: Art Kirby on 06-18-2023 Monocyte distribution width Auto (Bld) [Entitic vol] 15.12 % 0.00-20.00 [facility] Monocytes Auto (Bld) [#/Vol] Ordered By: Art Kirby on 06-18-2023 Monocytes (Bld) [#/Vol] 0.6 10*3/uL 0.0-0.8 [facility] Monocytes/100 WBC Auto (Bld) Ordered By: Art Kirby on 06-18-2023 Monocytes/100 WBC (Bld) 9.2 % . [facility] Natriuretic peptide B [Mass/ Vol]Ordered By: Art Kirby on 06-18-2023 Natriuretic peptide B (Bld) [Mass/Vol] 98.0 pg/mL 5-100 [facility] Neutrophils Auto (Bld) [#/Vo l]Ordered By: Art Kirby on 06-18-2023 Neutrophils (Bld) [#/Vol] 4.5 10*3/uL 1.8-7.7 [facility] Neutrophils/100 WBC Auto (Bl d)Ordered By: Art Kirby on 06-18-2023 Neutrophils/100 WBC (Bld) 66.8 % . [facility] No Panel InformationOrdered By: Art Kirby on 06-18-2023 Estimated GFR (CKD-EPI) 51.256 mL/Min [facility] Creatinine Clearance (Chem 71.87 [facility] Nucleated erythrocytes [Pres ence] in Blood by Automated countOrdered By: Art Kirby on 06-18-2023 Nucleated RBC Auto Ql (Bld) 0.1 /100{WBC} 0-0.5 [facility] Platelet mean volume Auto (B ld) [Entitic vol]Ordered By: Art Kirby on 06-18-2023 Platelet mean volume (Bld) [Entitic vol] 7.2 fL 6.6-10.1 [facility] Platelets Auto (Bld) [#/Vol] Ordered By: Art Kirby on 06-18-2023 Platelets (Bld) [#/Vol] 214 10*3/uL 150-450 [facility] Potassium [Moles/volume] in Serum or PlasmaOrdered By: Art Kirby on 06-18-2023 Potassium [Moles/Vol] 5.2 mmol/L 3.5-5.1 [facility] Protein Auto test strip (U) [Mass/Vol]Ordered By: Art Kirby on 06-18-2023 Protein (U) [Mass/Vol] 100 mg/dL Negative [facility] RBC Auto (Bld) [#/Vol]Ordere d By: Art Kirby on 06-18-2023 RBC (Bld) [#/Vol] 5.30 10*6/uL 3.90-5.60 [facility] Serum or plasma anion gap de terminationOrdered By: Art Kirby on 06-18-2023 Anion gap [Moles/Vol] 8.0 mmol/L 6.0-15.0 [facility] Sodium [Moles/volume] in Ser um or PlasmaOrdered By: Art Kirby on 06-18-2023 Sodium [Moles/Vol] 138 mmol/L 136-145 [facility] Squamous epithelial cells de tection in urine sediment by light microscopyOrdered By: Art Kirby on 06-18-2023 Epithelial cells.squamous LM Ql (Urine sed) 0-1 [HPF] 0-2 [facility] Troponin I.cardiac [Mass/vol ume] in Serum or Plasma by Detection limit <= 0.01 ng/Ordered By: Art Kirby on 06-18-2023 Troponin I.cardiac DL <= 0.01 ng/mL [Mass/Vol] 8.0 pg/mL 0.0-20.0 [facility] Urea nitrogen [Mass/volume] in Serum or PlasmaOrdered By: Art Kirby on 06-18-2023 Urea nitrogen [Mass/Vol] 47 mg/dL 7-25 [facility] Urine appearanceOrdered By: Art Kirby on 06-18-2023 Appearance (U) Clear Clear [facility] Urine bacteria detection by automated methodOrdered By: Art Kirby on 06-18-2023 Bacteria Auto Ql (U) None seen None Seen [facility] Urine colorOrdered By: Carmen Kirby on 06-18-2023 Color (U) Yellow Yellow [facility] Urine glucose measurement by automated test strip (mass/volume)Ordered By: Art Kirby on 06-18-2023 Glucose Auto test strip (U) [Mass/Vol] >=1000 mg/dL Normal [facility] Urine hemoglobin detection b y automated test stripOrdered By: Art Kirby on 06-18-2023 Hemoglobin Auto test strip Ql (U) Negative Negative [facility] Urine leukocyte esterase det ection by automated test stripOrdered By: Art Kirby on 06-18-2023 Leukocyte esterase Auto test strip Ql (U) Negative Negative [facility] Urine nitrite detection by a utomated test stripOrdered By: Art Kirby on 06-18-2023 Nitrite Auto test strip Ql (U) Negative Negative [facility] Urobilinogen Auto test strip (U) [Mass/Vol]Ordered By: Art Kirby on 06-18-2023 Urobilinogen (U) [Mass/Vol] Normal mg/dL Normal [facility] WBC Auto (Bld) [#/Vol]Ordere d By: Art Kirby on 06-18-2023 WBC (Bld) [#/Vol] 6.7 10*3/uL 4.1-10.5 [facility] pH Auto test strip (U)Ordere d By: Art Kirby on 06-18-2023 pH (U) 1.020 [pH] 1.001-1.030 [facility] pH (U) 5.5 [pH] 5.0-9.0 [facility] CHEMISTRYOrdered By: Lab ROP User on 06-15-2023 Glucose [Mass/Vol] 332 mg/dL High 55 - 99 mg/dL [facility] C POC Subsection Comment on above: Result Comment: Thelma maxwell RN/ POC Username CAROLINE OSORIO Invalid Interpretation Code [facility] [place] Subsection Sodium [Moles/Vol] 009521032630 mmol/L Invalid Interpretation Code [facility] [place] P[place] Subsection Sodium [Moles/Vol] [id number] mmol/L Invalid Interpretation Code [facility] [place] Subsection Glucose [Mass/Vol] 341 mg/dL High 55 - 99 mg/dL [facility] C POC Subsection Comment on above: Result Comment: Thelma maxwell RN/ POC Username ORTIZ WILD Invalid Interpretation Code [facility] [place] Subsection Sodium [Moles/Vol] 446324434154 mmol/L Invalid Interpretation Code [facility] [place] POC Subsection Sodium [Moles/Vol] [id number] mmol/L Invalid Interpretation Code [facility] [place] Subsection Glucose [Mass/Vol] 172 mg/dL High 55 - 99 mg/dL [facility] C POC Subsection Comment on above: Result Comment: Thelma BAE POC Username ORTIZ WILD Invalid Interpretation Code [facility] [place] Subsection Sodium [Moles/Vol] [id number] mmol/L Invalid Interpretation Code [facility] [place] POC Subsection Sodium [Moles/Vol] 956628302 mmol/L Invalid Interpretation Code [facility] [place] Subsection CHEMISTRYOrdered By: SYSTEM SYSTEM on 06-15-2023 Anion gap [Moles/Vol] 11 mmol/L Normal 6 - 16 mEq/L [facility] [place] [place] Remisol Calcium [Mass/Vol] 8.5 mg/dL Low 8.9 - 11.1 mg/dL [facility] [place] [place] Remisol Chloride [Moles/Vol] 105 mmol/L Normal 101 - 111 mmol/ L [facility] [place] Remisol CO2 [Moles/Vol] 28 mmol/L Normal 21 - 31 mmol/L [facility] [place] Remisol Creatinine [Mass/Vol] 1.6 mg/dL High 0.5 - 1.3 mg/dL [facility] [place] [place] Remisol GFR/1.73 sq M.predicted among non-blacks MDRD (S/P/Bld) [Vol rate/Area] 48 mL/min/1.73 m2 Low >=59mL/min/1.73 m2 [facility] [place] Chem S Comment on above: Interpretive Data: C hronic kidney disease could be indicated at eGFR's of less than 60 mL/min/1.73m2. Kidney failure is indicated at less than 15 mL/min/1.73m2. Glucose [Mass/Vol] 165 mg/dL Normal 55 - 199 mg/dL [facility] Comment on above: Interpretive Data: I f this glucose result represents a fasting glucose, interpretation should refer to the following reference range: 55-99 mg/dL Potassium [Moles/Vol] 4.7 mmol/L Normal 3.5 - 5.3 mmol/L [facility] [place] [place] Remisol Sodium [Moles/Vol] 139 mmol/L Normal 135 - 145 mmol/L [facility] Urea nitrogen [Mass/Vol] 63 mg/dL High 5 - 21 mg/dL [facility] Urea nitrogen/Creatinine [Mass ratio] 39 mg/mg High - [facility] [place] Remisol CHEMISTRYOrdered By: SYSTEM SYSTEM on 06-14-2023 Anion gap [Moles/Vol] 7 mmol/L Normal 6 - 16 mEq/L [facility] Calcium [Mass/Vol] 8.0 mg/dL Low 8.9 - 11.1 mg/dL [facility] [place] [place] Remisol Chloride [Moles/Vol] 106 mmol/L Normal 101 - 111 mmol/ L [facility] [place] Remisol CO2 [Moles/Vol] 30 mmol/L Normal 21 - 31 mmol/L [facility] [place] [place] Remisol GFR/1.73 sq M.predicted among non-blacks MDRD (S/P/Bld) [Vol rate/Area] 37 mL/min/1.73 m2 Low >=59mL/min/1.73 m2 [facility] [place] Chem S Comment on above: Interpretive Data: C hronic kidney disease could be indicated at eGFR's of less than 60 mL/min/1.73m2. Kidney failure is indicated at less than 15 mL/min/1.73m2. Glucose [Mass/Vol] 78 mg/dL Normal 55 - 199 mg/dL [facility] Comment on above: Interpretive Data: I f this glucose result represents a fasting glucose, interpretation should refer to the following reference range: 55-99 mg/dL Potassium [Moles/Vol] 5.1 mmol/L Normal 3.5 - 5.3 mmol/L [facility] [place] [place] Remisol Sodium [Moles/Vol] 138 mmol/L Normal 135 - 145 mmol/L [facility] [place] [place] Remisol Urea nitrogen [Mass/Vol] 71 mg/dL High 5 - 21 mg/dL [facility] [place] [place] Remisol Urea nitrogen/Creatinine [Mass ratio] 36 mg/mg High 10 - 20 [facility] [place] [place] Remisol CHEMISTRYOrdered By: Sandee Hicks on 06-14-2023 Creatinine [Mass/Vol] 2.0 mg/dL High 0.5 - 1.3 mg/dL [facility] Remisol HEMATOLOGYOrdered By: SYSTEM SYSTEM on 06-14-2023 Basophils/100 WBC (Bld) 0.3 % Normal 0.0 - 2.0 % [facility] Basophils/Leukocytes Auto (Bld) [Pure # fraction] 0.0 E9/L Normal 0.0 - 0.2 E9/L [facility] Eosinophils/100 WBC (Bld) 0.0 % Normal 0.0 - 8.0 % [facility] Eosinophils/Leukocyt es Auto (Bld) [Pure # fraction] 0.0 E9/L Normal 0.0 - 0.5 E9/L [facility] Lymphocytes/100 WBC (Bld) 7.4 % Low 14.0 - 50.0 % [facility] Lymphocytes/Leukocyt es Auto (Bld) [Pure # fraction] 0.6 E9/L Low 1.0 - 4.0 E9/L [facility] Monocytes/100 WBC (Bld) 3.9 % Low 4.0 - 14.0 % [facility] Monocytes/Leukocytes Auto (Bld) [Pure # fraction] 0.3 E9/L Normal 0.2 - 1.0 E9/L [facility] Neutrophils/100 WBC (Bld) 88.4 % High 36.0 - 75.0 % [facility] Neutrophils/Leukocyt es Auto (Bld) [Pure # fraction] 6.9 E9/L Normal 2.0 - 7.5 E9/L [facility] HEMATOLOGYOrdered By: Richa Hicks on 06-14-2023 Erythrocyte distribution width (RBC) [Ratio] 15.0 % High 10.9 - 14.2 % [facility] Hematocrit (Bld) [Volume fraction] 42.1 % Normal 37.7 - 49.0 % [facility] Hemoglobin (Bld) [Mass/Vol] 13.3 g/dL Low 13.5 - 17.5 gm/dL [facility] MCH (RBC) [Entitic mass] 28.1 pg Normal 27.0 - 34.0 pg [facility] MCHC (RBC) [Mass/Vol] 31.6 g/dL Normal 31.4 - 36.0 gm/dL [facility] MCV (RBC) [Entitic vol] 88.8 fL Normal 80.0 - 100.0 fL [facility] Platelet mean volume (Bld) [Entitic vol] 7.3 fL Normal 6.4 - 10.8 fL [facility] Platelets (Bld) [#/Vol] 225.0 E9/L Normal 150.0 - 500.0 E9/L [facility] [place] RBC (Bld) [#/Vol] 4.7 E12/L Normal 4.3 - 5.9 E12/L [facility] WBC corrected for nucl RBC Auto (Bld) [#/Vol] 7.8 E9/L Normal 4.0 - 11.0 E9/L [facility] CHEMISTRYOrdered By: SYSTEM SYSTEM on 06-13-2023 Anion gap [Moles/Vol] 9 mmol/L Normal 6 - 16 mEq/L [facility] [place] Remisol Calcium [Mass/Vol] 8.3 mg/dL Low 8.9 - 11.1 mg/dL [facility] Chloride [Moles/Vol] 102 mmol/L Normal 101 - 111 mmol/ L [facility] [place] [place] Remisol CO2 [Moles/Vol] 30 mmol/L Normal 21 - 31 mmol/L [facility] [place] Remisol Creatinine [Mass/Vol] 2.4 mg/dL High 0.5 - 1.3 mg/dL [facility] [place] Remisol GFR/1.73 sq M.predicted among non-blacks MDRD (S/P/Bld) [Vol rate/Area] 29 mL/min/1.73 m2 Low >=59mL/min/1.73 m2 [facility] [place] [place] Chem S Comment on above: Interpretive Data: C hronic kidney disease could be indicated at eGFR's of less than 60 mL/min/1.73m2. Kidney failure is indicated at less than 15 mL/min/1.73m2. Glucose [Mass/Vol] 139 mg/dL Normal 55 - 199 mg/dL [facility] Remisol Comment on above: Interpretive Data: I f this glucose result represents a fasting glucose, interpretation should refer to the following reference range: 55-99 mg/dL Potassium [Moles/Vol] 4.8 mmol/L Normal 3.5 - 5.3 mmol/L [facility] [place] Remisol Sodium [Moles/Vol] 136 mmol/L Normal 135 - 145 mmol/L [facility] [place] [place] Remisol Urea nitrogen [Mass/Vol] 69 mg/dL High 5 - 21 mg/dL [facility] [place] Remisol Urea nitrogen/Creatinine [Mass ratio] 29 mg/mg High 10 - 20 [facility] [place] Remisol CRP [Mass/Vol] 0.7 mg/dL Normal <=1.9mg/dL [facility] [place] Remis ol CHEMISTRYOrdered By: Erin morocho on 06-13-2023 Albumin Elph (U) [Mass fraction] 97.0 mg/dL Invalid Interpretation Code [facility] [place] [place] Remisol Comment on above: Interpretive Data: T he reference range and other method performance specifications have not been established for this test; results should be integrated into the clinical context for interpretation. Creatinine (U) [Mass/Vol] 93.4 mg/dL Invalid Interpretation Code [facility]iso Comment on above: Interpretive Data: T he reference range and other method performance specifications have not been established for this test; results should be integrated into the clinical context for interpretation. Sodium (U) [Moles/Vol] 21 mmol/L Invalid Interpretation Code [facility] [place] Comment on above: Interpretive Data: T he reference range and other method performance specifications have not been established for this test; results should be integrated into the clinical context for interpretation. CHEMISTRYOrdered By: Kaz Schmidt on 06-13-2023 U Osmolality 447 mOsm/kg Normal 50 - 1400 mOsm/kg [facility] Man UA SS HEMATOLOGYOrdered By: SYSTEM SYSTEM on 06-13-2023 Basophils/100 WBC (Bld) 0.3 % Normal 0.0 - 2.0 % [facility] Basophils/Leukocytes Auto (Bld) [Pure # fraction] 0.0 E9/L Normal 0.0 - 0.2 E9/L [facility] Eosinophils/100 WBC (Bld) 0.0 % Normal 0.0 - 8.0 % [facility] Eosinophils/Leukocyt es Auto (Bld) [Pure # fraction] 0.0 E9/L Normal 0.0 - 0.5 E9/L [facility] Lymphocytes/100 WBC (Bld) 7.7 % Low 14.0 - 50.0 % [facility] Lymphocytes/Leukocyt es Auto (Bld) [Pure # fraction] 0.5 E9/L Low 1.0 - 4.0 E9/L [facility] Monocytes/100 WBC (Bld) 2.4 % Low 4.0 - 14.0 % [facility] Monocytes/Leukocytes Auto (Bld) [Pure # fraction] 0.1 E9/L Low 0.2 - 1.0 E9/L [facility] Neutrophils/100 WBC (Bld) 89.6 % High 36.0 - 75.0 % [facility] Neutrophils/Leukocyt es Auto (Bld) [Pure # fraction] 5.4 E9/L Normal 2.0 - 7.5 E9/L [facility] [place] [place] [facility] HEMATOLOGYOrdered By: Yohannes Rhodes on 06-13-2023 Erythrocyte distribution width (RBC) [Ratio] 15.4 % High 10.9 - 14.2 % [facility] Hematocrit (Bld) [Volume fraction] 44.4 % Normal 37.7 - 49.0 % [facility] Hemoglobin (Bld) [Mass/Vol] 14.0 g/dL Normal 13.5 - 17.5 gm/dL [facility] MCH (RBC) [Entitic mass] 28.4 pg Normal 27.0 - 34.0 pg [facility] MCHC (RBC) [Mass/Vol] 31.6 g/dL Normal 31.4 - 36.0 gm/dL [facility] MCV (RBC) [Entitic vol] 90.1 fL Normal 80.0 - 100.0 fL [facility] Platelet mean volume (Bld) [Entitic vol] 7.3 fL Normal 6.4 - 10.8 fL [facility] Platelets (Bld) [#/Vol] 211.0 E9/L Normal 150.0 - 500.0 E9/L [facility] RBC (Bld) [#/Vol] 4.9 E12/L Normal 4.3 - 5.9 E12/L [facility] WBC corrected for nucl RBC Auto (Bld) [#/Vol] 6.0 E9/L Normal 4.0 - 11.0 E9/L [facility] [place] [place] [facility] Reference Laboratory Testing Ordered By: Jalil DomainUser on 06-13-2023 Centromere protein B Ab Qn (S) AI Invalid Interpretation Code 0.0-0.9AI [facility] [place] [facility]OutsSS Chromatin Ab Qn AI Invalid Interpretation Code 0.0-0.9AI [facility] SendOutsSS DNA double strand Ab Qn (S) 33 [iU]/mL High 0-9International_ Unit/mL [facility] Comment on above: Result Comment: Nega tive <5 Equivocal 5 - 9 Positive >9 Violette-1 extractable nuclear Ab Qn (S) AI Invalid Interpretation Code 0.0-0.9AI [facility] SendOutsSS Nuclear Ab Ql (S) Positive Invalid Interpretation Code Negative FT SendOutsSS Comment on above: Result Comment: Perf ormed at: [facility] [id number] PhD Vern Gage Ribonucleoprotein extractable nuclear Ab Qn (S) AI Invalid Interpretation Code 0.0-0.9AI [facility] [place] [facility]Out[facility] SCL-70 extractable nuclear Ab Qn (S) AI Invalid Interpretation Code 0.0-0.9AI [facility] SendOutsSS See below: Comment Invalid Interpretation Code [facility] [place] [facility]OutsSS Comment on above: Result Comment: Tarah ramos Potential Disease Association Homogeneous Systemic Lupus Erythematosus, Drug Induced Systemic Lupus Erythematosus, Chronic Autoimmune hepatitis, Juvenile Idiopathic Arthritis Speckled Sjogren Syndrome, Systemic Lupus Erythematosus, Subacute Cutaneous Lupus, Lupus, Congenital Heart Block, Mixed Connective Tissue Disease, Scleroderma-diffuse, Scleroderma-Autoimmune Myositis Overlap Syndrome, Systemic Lupus Upticqduunxnt-Fbzymoajokj-Tbicfyumwz Myositis Overlap Syndrome, Systemic Autoimmune Rheumatic Disease, Undifferentiated Connective Tissue Disease Nucleolar Systemic Sclerosis, Scleroderma-Autoimmune Myositis Overlap Syndrome, Sjogren Syndrome, Raynaud phenomenon, Pulmonary Arterial Hypertension, Systemic Autoimmune Rheumatic Disease, Cancer [facility] Scleroderma-CREST, Limited Cutaneous SSc, Raynaud's Phenomenon, Primary Biliary Cholangitis Nuclear Dot Primary Biliary Cholangitis Nuclear Primary Biliary Cholangitis, Autoimmune Membrane Hepatitis/Liver disease, Systemic Autoimmune Rheumatic Disease, Autoimmune Cytopenias, Linear Scleroderma, Antiphospholipid Syndrome Performed at: [facility] [id number] PhD Vern Gage Sjogrens syndrome-A extractable nuclear Ab Qn (S) AI Invalid Interpretation Code 0.0-0.9AI [facility] [place] [facility] Sjogrens syndrome-B extractable nuclear Ab Qn (S) AI Invalid Interpretation Code 0.0-0.9AI [facility] [place] SendOutsSS Quinn extractable nuclear Ab Qn (S) AI Invalid Interpretation Code 0.0-0.9AI [facility] [place] [facility] URINALYSISOrdered By: Yohannes Schmidt on 06-13-2023 Bacteria LM Ql (Urine sed) Trace /HPF Normal Trace/HPF [facility] UA Auto SS Bilirubin Ql (U) Negative (06/13/23 10:09 AM) Normal Negative [facility] UA Auto SS Clarity (U) Clear (06/13/23 10:09 AM) Normal Clear [facility] UA Auto SS Color (U) Yellow (06/13/23 10:09 AM) Normal Yellow [facility] UA Auto SS Epithelial cells.squamous LM.HPF (Urine sed) [#/Area] 0-2 /HPF Normal 0-2/HPF [facility] UA Auto SS Glucose Test strip (U) [Mass/Vol] 3+ *ABN* (06/13/23 10:09 AM) Invalid Interpretation Code Negative [facility] UA Auto SS Hemoglobin Ql (U) Negative (06/13/23 10:09 AM) Normal Negative [facility] UA Auto SS Ketones (U) [Mass/Vol] Negative (06/13/23 10:09 AM) Normal Negative [facility] UA Auto SS Bode.plasma/Lithi um.RBC (Bld) [Mass ratio] 0-3 /HPF Normal 0-3/HPF [facility] UA Auto SS Mucus Ql (Urine sed) Trace (06/13/23 10:09 AM) Normal [facility] UA Auto SS Nitrite Ql (U) Negative (06/13/23 10:09 AM) Normal Negative [facility] UA Auto SS pH (U) 5.5 *NA* (06/13/23 10:09 AM) Invalid Interpretation Code 5.0 - 9.0 FT UA Auto SS Protein (U) [Mass/Vol] 2+ *ABN* (06/13/23 10:09 AM) Invalid Interpretation Code Negative [facility] UA Auto SS Specific gravity (U) [Rel density] 1.025 *NA* (06/13/23 10:09 AM) Invalid Interpretation Code 1.005 - 1.030 [facility] UA Auto SS UA Spec Desc Clean Catch (06/13/23 10:09 AM) Normal FT UA Auto SS Urobilinogen Qn (U) [id number] {Itz'U}/dL Normal 0.0 - 1.0 EU/dL [facility] UA Auto SS WBC Auto Ql (U) Negative (06/13/23 10:09 AM) Normal Negative [facility] UA Auto SS WBC casts LM.LPF (Urine sed) [#/Area] 4-10 (06/13/23 10:09 AM) Normal [facility] UA Auto SS WBC LM.HPF (Urine sed) [#/Area] 0-5 /HPF Normal 0-5/HPF [facility] UA Auto SS CHEMISTRYOrdered By: SYSTEM SYSTEM on 06-12-2023 Procalcitonin 0.07 ng/mL Normal 0.00 - 0.50 ng/mL [facility] [place] [facility]isol Comment on above: Interpretive Data: < 0.5 ng/mL Low risk of severe sepsis and/or shock >2.0 ng/mL High risk of severe sepsis and/or shock Concentrations under 0.5 ng/mL do not exclude local infections or systemic infections in their initial stages (e.g.. under six hours from onset of illness). PCT concentrations between 0.5 and 2.0 ng/mL should be interpreted with consideration of the patient's history. In this range, it is recommended to retest PCT within 6 to 24 hours. CHEMISTRYOrdered By: SYSTEM SYSTEM on 06-11-2023 Troponin I.cardiac [Mass/Vol] 9.10 pg/mL Low 15.90 - 38.40 pg/mL [facility] [place] Remisol Comment on above: Interpretive Data: T he 95% CI (Confidence Interval) PPV (Positive Predictive Value) for myocardial infarction in females is 38 pg/mL, in males 51 pg/mL. The results should be used in conjunction with clinical conditions of myocardial infarction. (Access High Sensitivity Troponin I Instructions For Use, [employer], March 2018) Magnesium [Mass/Vol] 2.1 mg/dL Normal 1.3 - 2.4 mg/dL [facility] [place] Remisol Troponin I.cardiac [Mass/Vol] 9.20 pg/mL Low 15.90 - 38.40 pg/mL [facility] Remisol Comment on above: Interpretive Data: T he 95% CI (Confidence Interval) PPV (Positive Predictive Value) for myocardial infarction in females is 38 pg/mL, in males 51 pg/mL. The results should be used in conjunction with clinical conditions of myocardial infarction. (Access High Sensitivity Troponin I Instructions For Use, [employer], March 2018) Troponin I.cardiac [Mass/Vol] 7.00 pg/mL Low 15.90 - 38.40 pg/mL [facility] Remisol Comment on above: Interpretive Data: T he 95% CI (Confidence Interval) PPV (Positive Predictive Value) for myocardial infarction in females is 38 pg/mL, in males 51 pg/mL. The results should be used in conjunction with clinical conditions of myocardial infarction. (Access High Sensitivity Troponin I Instructions For Use, [employer], March 2018) Lactate [Mass/Vol] 1.7 mmol/L Normal 0.5 - 2.2 mmol/L [facility] [place] Remisol CHEMISTRYOrdered By: Sasha Arroyo on 06-11-2023 Natriuretic peptide B (Bld) [Mass/Vol] 121 pg/mL High 5 - 80 pg/mL [facility] [place] HemeManSS COAGULATIONOrdered By: Radha Quinn on 06-11-2023 aPTT Coag (PPP) [Time] 33.9 s Normal 25.1 - 36.5 second(s) [facility] [place] Auto Coag Comment on above: Interpretive Data: Jarad grant 15 days - 4 weeks 1 - 5 months 6 - 11 months 1 - 5 years 6 - 10 years 11 - 17 years PTT Mean: 35.4 (27.6-45.6) Mean: 33.5 (24.8-40.7) Mean: 32.4 (25.1-40.7) Mean: 31.6 (24.0-39.2) Mean: 31.6 (26.9-38.7) Mean: 31.0 (24.6-38.4) Pediatric Reference ranges were obtained from a study by Isaiah Hallman et al. prepared from 1437 samples obtained at 7 different centers using the same coagulation reagent and instrumentation as [facility] [place]. Currently there are no coagulation studies available worldwide for children to 14 days, and no normal ranges. Heparin therapeutic range (represented by Anti-Factor Xa activity of 0.2 - 0.4 U/mL) corresponds to PTT of 56.6 - 109.0 sec. INR Coag (PPP) [Relative time] 1.0 {INR} Invalid Interpretation Code [facility] [place] Auto Coag Comment on above: Interpretive Data: I NR results are specifically intended to assess patients stabilized on long-term Anticoagulation therapy suggested INR s Less Intensive Anticoagulation 2.0 3.0 Conventional Range 3.0 4.5 PT Coag (PPP) [Time] 11.2 s Normal 9.4 - 1 2.5 second(s) [facility] [place] Auto Coag Comment on above: Interpretive Data: 1 5 days - 4 weeks 1 - 5 months 6 -11 months 1-5 years 6-10 years 11 -17 years Mean: 11.2 (9.5-12.6) Mean: 11.0 (9.7-12.8) Mean: 11.0 (9.8-13.0) Mean: 11.3 (9.9-13.4) Mean: 11.7 (10.0-14.6) Mean: 11.8 (10.0 - 14.1) Pediatric Reference ranges were obtained from a study by Isaiah Hallman et al. prepared from 1437 samples obtained at 7 different centers using the same coagulation reagent and instrumentation as [facility] [place]. Currently there are no coagulation studies available worldwide for children to 14 days, and no normal ranges. FT Blood GasesOrdered By: Akash Tubbs on 06-11-2023 a/A Ratio Art 37.10 % Normal >=0.80% [facility] Resp Auto SS AaDO2 Art 98.0 mm[Hg] High 5.0 - 15.0 mmHg [facility] Res p Auto SS Allens Test Positive (06/11/23 2:22 PM) Normal [facility] Resp Auto SS Base Excess Arterial 5.1 mmol/L Normal >=2.8mmol/L F[facility] C Resp Auto SS cCa2+ Art 4.66 mg/dL Normal 4.40 - 5.30 mg/dL [facility] Re sp Auto SS cCl- Art 101.0 mmol/L Normal 101.0 - 111.0 mmol/L [facility] Resp Auto SS cGlu Art 57 mg/dL Normal 55 - 99 mg/dL [facility] Resp Auto SS cK+ Art 4.7 mmol/L Normal 3.5 - 5.3 mmol/L [facility] Res p Auto SS cLac Art 1.3 mmol/L Normal 0.5 - 2.2 mmol/L [facility] Res p Auto SS smudger+ Art 140.0 mmol/L Normal 135.0 - 145.0 mmol/L [facility] Resp Auto SS Device Cannula (06/11/23 2:22 PM) Normal [facility] Resp Auto SS Drawn by [employer] Invalid Interpretation Code [facility] Resp Auto SS FCOHb Art 2.2 % Normal 1.5 - 4.9 % [facility] Resp Auto SS Comment on above: Interpretive Data: R eference range Nonsmoker <1.5% Smoker <5.0% Heavy Smoker <9.0% FMetHb Art 0.1 % Normal 0.0 - 1.9 % [facility] Resp Auto SS FO2Hb Art 88.7 % Low 93.0 - 100.0 % [facility] Resp Auto SS HCO3 (Bld) [Moles/Vol] 28.8 mmol/L High 22.0 - 26.0 mmol/L [facility] [place] Resp Auto SS Hemoglobin (Bld) [Mass/Vol] 14.5 g/dL Normal 12.0 - 17.0 gm/dL [facility] [place] Resp Auto SS P CO2 Arterial 59.5 mm[Hg] High 35.0 - 45.0 mmHg FT C Resp Auto SS P O2 Arterial 57.8 mm[Hg] Low 80.0 - 100.0 mmHg FT C Resp Auto SS pH (Bld) 7.348 [pH] Low 7.350 - 7.450 [facility] [place] Resp Auto SS Sample Site L Radial (06/11/23 2:22 PM) Normal [facility] [place] Resp Auto SS Sample Type Arterial Draw (06/11/23 2:22 PM) Normal [facility] [place] Resp Auto SS Sodium [Moles/Vol] 32 mmol/L Invalid Interpretation Code [facility] [place] Resp Auto SS HEMATOLOGYOrdered By: SYSTEM SYSTEM on 06-11-2023 Basophils/100 WBC (Bld) 1.1 % Normal 0.0 - 2.0 % [facility] HemeAutoSS Basophils/Leukocytes Auto (Bld) [Pure # fraction] 0.1 E9/L Normal 0.0 - 0.2 E9/L [facility] HemeAutoSS Eosinophils/100 WBC (Bld) 3.4 % Normal 0.0 - 8.0 % [facility] HemeAutoSS Eosinophils/Leukocyt es Auto (Bld) [Pure # fraction] 0.2 E9/L Normal 0.0 - 0.5 E9/L [facility] HemeAutoSS Lymphocytes/100 WBC (Bld) 20.7 % Normal 14.0 - 50.0 % [facility] HemeAutoSS Lymphocytes/Leukocyt es Auto (Bld) [Pure # fraction] 1.5 E9/L Normal 1.0 - 4.0 E9/L [facility] HemeAutoSS Monocytes/100 WBC (Bld) 11.6 % Normal 4.0 - 14.0 % [facility] HemeAutoSS Monocytes/Leukocytes Auto (Bld) [Pure # fraction] 0.8 E9/L Normal 0.2 - 1.0 E9/L [facility] HemeAutoSS Neutrophils/100 WBC (Bld) 63.2 % Normal 36.0 - 75.0 % [facility] HemeAutoSS Neutrophils/Leukocyt es Auto (Bld) [Pure # fraction] 4.5 E9/L Normal 2.0 - 7.5 E9/L [facility] HemeAutoSS HEMATOLOGYOrdered By: Sasha Arroyo on 06-11-2023 Erythrocyte distribution width (RBC) [Ratio] 15.0 % High 10.9 - 14.2 % [facility] HemeAutoSS Hematocrit (Bld) [Volume fraction] 45.4 % Normal 37.7 - 49.0 % [facility] HemeAutoSS Hemoglobin (Bld) [Mass/Vol] 14.4 g/dL Normal 13.5 - 17.5 gm/dL [facility] HemeAutoSS MCH (RBC) [Entitic mass] 28.3 pg Normal 27.0 - 34.0 pg [facility] HemeAutoSS MCHC (RBC) [Mass/Vol] 31.8 g/dL Normal 31.4 - 36.0 gm/dL [facility] HemeAutoSS MCV (RBC) [Entitic vol] 88.9 fL Normal 80.0 - 100.0 fL [facility] HemeAutoSS Platelet mean volume (Bld) [Entitic vol] 7.2 fL Normal 6.4 - 10.8 fL [facility] HemeAutoSS Platelets (Bld) [#/Vol] 233.0 E9/L Normal 150.0 - 500.0 E9/L [facility] HemeAutoSS RBC (Bld) [#/Vol] 5.1 E12/L Normal 4.3 - 5.9 E12/L [facility] HemeAutoSS WBC corrected for nucl RBC Auto (Bld) [#/Vol] 7.1 E9/L Normal 4.0 - 11.0 E9/L [facility] HemeAutoSS MICRO OTHER TESTSOrdered By: Liberty Quinn on 06-11-2023 Rapid COV Int NEG Ctl Pass (06/11/23 2:16 PM) Normal [facility] Man Sero Rapid COV Int POS Ctl Pass (06/11/23 2:16 PM) Normal [facility] [place] Sero SARS-CoV+SARS-CoV-2 (COVID-19) Ag IA.rapid Ql (Resp) Not Detected (06/11/23 2:16 PM) Normal Not Detected [facility] [place] Man Sero Comment on above: Interpretive Data: T lemuel [employer] Veritor System for Rapid Detection of SARS-CoV-2 is a chromatographic digital immunoassay intended for the direct and qualitative detection of SARS-CoV-2 nucleocapsid antigens in nasal swabs from individuals who are suspected of COVID-19 by their healthcare provider within the first five days of the onset of symptoms. Negative results should be treated as presumptive, do not rule out SARS-CoV-2 infection and should not be used as the sole basis for treatment or patient management decisions, including infection control decisions. Negative results should be considered in the context of a patient s recent exposures, history and the presence of clinical signs and symptoms consistent with COVID-19, and confirmed with a molecular assay, if necessary, for patient management. For in vitro diagnostic use. In the [place], only for use under an Emergency Use Authorization. In the [place], this test has not been FDA cleared or approved; this test has been authorized by FDA under an EUA for use by authorized laboratories; use by laboratories certified under the CLIA, 42 U.S.C. 263a, that meet requirements to perform moderate, high, or waived complexity tests and at the Point of Care (POC), i.e., in patient care settings operating under a CLIA Certificate of Waiver, Certificate of Compliance, or Certificate of Accreditation. This test has been authorized only for the detection of proteins from SARS-CoV-2, not for any other viruses or pathogens; and, in the [place], this test is only authorized for the duration of the declaration that circumstances exist justifying the authorization of emergency use of in vitro diagnostics for detection and/or diagnosis of the virus that causes COVID-19 under Section 564(b)(1) of the Act, 21 U.S.C. 360bbb-3(b)(1), unless the authorization is terminated or revoked sooner. No Panel InformationOrdered By: [facility] on 06-11-2023 Blood Culture Charcoal No growth at 4 days. Final to follow at 7 days. [facility] Blood Culture Charcoal No growth at 4 days. Final to follow at 7 days. [facility] CHEMISTRYOrdered By: Tatyana Long on 05-22-2023 HbA1c (Bld) [Mass fraction] 11.0 % High <=5.9% [facility] [place] ChemAutoSS CHEMISTRYOrdered By: Yahaira ROP User on 08-04-2022 Glucose [Mass/Vol] mg/dL Invalid Interpretation Code 55 - 99 mg/dL [facility] [place] POC Subsection Comment on above: Result Comment: Thelma maxwell RN/ POC Device SN [id number] Invalid Interpretation Code FT POC Subsection POC User ID [id number] Invalid Interpretation Code [facility] [place] POC Subsection POC Username JANIA BALDWIN Invalid Interpretation Code [facility] [place] POC Subsection CHEMISTRYOrdered By: SYSTEM SYSTEM on 08-04-2022 Troponin I.cardiac [Mass/Vol] 9.90 pg/mL Low 15.90 - 38.40 pg/mL [facility] Remisol Anion gap [Moles/Vol] 16 mmol/L Normal 6 - 16 mEq/L [facility] Remisol Calcium [Mass/Vol] 9.4 mg/dL Normal 8.9 - 11.1 mg/dL [facility] Remisol Chloride [Moles/Vol] 89 mmol/L Low 101 - 111 mmol/ L [facility] Remisol CO2 [Moles/Vol] 24 mmol/L Normal 21 - 31 mmol/L [facility] Remisol Creatinine [Mass/Vol] 1.7 mg/dL High 0.5 - 1.3 mg/dL [facility] Remisol GFR/1.73 sq M.predicted among blacks MDRD (S/P/Bld) [Vol rate/Area] 50 mL/min/1.73 m2 Low >=59mL/min/1.73 m2 FT Chem S GFR/1.73 sq M.predicted among non-blacks MDRD (S/P/Bld) [Vol rate/Area] 41 mL/min/1.73 m2 Low >=59mL/min/1.73 m2 [facility] [place] Chem S Glucose [Mass/Vol] 897 mg/dL Invalid Interpretation Code 55 - 199 mg/dL [facility] Remisol Comment on above: Result Comment: Crit ical Result verified by repeat analysis\Critical Result [id number] Called to MARILEE MAHMOOD AT ER by ERIN HENDERSON And Read Back For Confirmation at: 08/04/2022 15:01:08 Potassium [Moles/Vol] 5.1 mmol/L Normal 3.5 - 5.3 mmol/L [facility] Remisol Sodium [Moles/Vol] 124 mmol/L Low 135 - 145 mmol/L [facility] Remisol TSH Qn 1.07 m[IU]/L Normal 0.34 - 5.60 mcIU/mL [facility] Remisol Urea nitrogen [Mass/Vol] 52 mg/dL High 5 - 21 mg/dL [facility] Remisol Urea nitrogen/Creatinine [Mass ratio] 31 mg/mg High 10 - 20 [facility] Remisol CHEMISTRYOrdered By: Reid chun on 08-04-2022 Troponin I.cardiac [Mass/Vol] 9.10 pg/mL Low 15.90 - 38.40 pg/mL [facility] Remisol HEMATOLOGYOrdered By: SYSTEM SYSTEM on 08-04-2022 Basophils/100 WBC (Bld) 1.0 % Normal 0.0 - 2.0 % [facility] HemeAutoSS Basophils/Leukocytes Auto (Bld) [Pure # fraction] 0.1 E9/L Normal 0.0 - 0.2 E9/L [facility] HemeAutoSS Eosinophils/100 WBC (Bld) 2.6 % Normal 0.0 - 8.0 % [facility] HemeAutoSS Eosinophils/Leukocyt es Auto (Bld) [Pure # fraction] 0.2 E9/L Normal 0.0 - 0.5 E9/L [facility] HemeAutoSS Lymphocytes/100 WBC (Bld) 18.2 % Normal 14.0 - 50.0 % [facility] HemeAutoSS Lymphocytes/Leukocyt es Auto (Bld) [Pure # fraction] 1.1 E9/L Normal 1.0 - 4.0 E9/L [facility] HemeAutoSS Monocytes/100 WBC (Bld) 8.1 % Normal 4.0 - 14.0 % [facility] HemeAutoSS Monocytes/Leukocytes Auto (Bld) [Pure # fraction] 0.5 E9/L Normal 0.2 - 1.0 E9/L [facility] HemeAutoSS Neutrophils/100 WBC (Bld) 70.1 % Normal 36.0 - 75.0 % [facility] HemeAutoSS Neutrophils/Leukocyt es Auto (Bld) [Pure # fraction] 4.2 E9/L Normal 2.0 - 7.5 E9/L [facility] HemeAutoSS HEMATOLOGYOrdered By: Nory Moran on 08-04-2022 Erythrocyte distribution width (RBC) [Ratio] 13.2 % Normal 10.9 - 14.2 % [facility] HemeAutoSS Hematocrit (Bld) [Volume fraction] 47.6 % Normal 37.7 - 49.0 % [facility] HemeAutoSS Hemoglobin (Bld) [Mass/Vol] 15.9 g/dL Normal 13.5 - 17.5 gm/dL [facility] HemeAutoSS MCH (RBC) [Entitic mass] 30.9 pg Normal 27.0 - 34.0 pg [facility] HemeAutoSS MCHC (RBC) [Mass/Vol] 33.4 g/dL Normal 31.4 - 36.0 gm/dL [facility] HemeAutoSS MCV (RBC) [Entitic vol] 92.5 fL Normal 80.0 - 100.0 fL [facility] HemeAutoSS Platelet mean volume (Bld) [Entitic vol] 8.2 fL Normal 6.4 - 10.8 fL [facility] HemeAutoSS Platelets (Bld) [#/Vol] 193.0 E9/L Normal 150.0 - 500.0 E9/L [facility] HemeAutoSS RBC (Bld) [#/Vol] 5.2 E12/L Normal 4.3 - 5.9 E12/L [facility] HemeAutoSS WBC corrected for nucl RBC Auto (Bld) [#/Vol] 6.0 E9/L Normal 4.0 - 11.0 E9/L [facility] HemeAutoSS CHEMISTRYOrdered By: Lab ROP User on 03-09-2022 Glucose [Mass/Vol] 324 mg/dL High 55 - 99 mg/dL F[facility] C POC Subsection Comment on above: Result Comment: Thelma BAE POC Device SN [id number] Invalid Interpretation Code [facility] POC Subsection POC User ID [id number] Invalid Interpretation Code [facility] POC Subsection POC Username TRINIDADHUDSON DYSON Invalid Interpretation Code [facility] POC Subsection CHEMISTRYOrdered By: Lab ROP User on 03-08-2022 Glucose [Mass/Vol] 395 mg/dL High 55 - 99 mg/dL F[facility] C POC Subsection Comment on above: Result Comment: Thelma BAE POC Device SN [id number] Invalid Interpretation Code [facility] POC Subsection POC User ID [id number] Invalid Interpretation Code [facility] POC Subsection POC Username PRIYANKA OSBORN Invalid Interpretation Code [facility] POC Subsection CHEMISTRYOrdered By: SYSTEM SYSTEM on 03-08-2022 Albumin [Mass/Vol] 3.7 g/dL Normal 3.3 - 5.0 gm/dL F [facility] Remisol Albumin/Globulin [Mass ratio] 1.1 {ratio} Normal 1.1 - 2.2 [facility] Remisol ALP [Catalytic activity/Vol] 110 [iU]/d High 21 - 98 Int._Unit/L [facility] Remisol ALT No additional P-5'-P [Catalytic activity/Vol] 18 [iU]/d Normal 6 - 46 Int._Unit/L [facility] Remisol Anion gap [Moles/Vol] 14 mmol/L Normal 6 - 16 mEq/L [facility] Remisol AST [Catalytic activity/Vol] 19 [iU]/d Normal 5 - 43 Int._Unit/L [facility] Remisol Bilirubin [Mass/Vol] 0.7 mg/dL Normal 0.0 - 1.1 mg/dL [facility] Remisol Bilirubin.direct [Mass/Vol] 0.2 mg/dL Normal 0.1 - 0.4 mg/dL [facility] Remisol Bilirubin.indirect [Mass or moles/Vol] 0.5 mg/dL Normal 0.1 - 0.9 mg/dL [facility] Remisol Calcium [Mass/Vol] 9.0 mg/dL Normal 8.9 - 11.1 mg/dL [facility] Remisol Chloride [Moles/Vol] 96 mmol/L Low 101 - 111 mmol/ L [facility] Remisol CO2 [Moles/Vol] 25 mmol/L Normal 21 - 31 mmol/L [facility] Remisol Creatinine [Mass/Vol] 1.5 mg/dL High 0.5 - 1.3 mg/dL [facility] Remisol GFR/1.73 sq M.predicted among blacks MDRD (S/P/Bld) [Vol rate/Area] 57 mL/min/1.73 m2 Low >=59mL/min/1.73 m2 [facility] [place] Chem S GFR/1.73 sq M.predicted among non-blacks MDRD (S/P/Bld) [Vol rate/Area] 47 mL/min/1.73 m2 Low >=59mL/min/1.73 m2 FT Chem S Globulin (S) [Mass/Vol] 3.4 g/dL Normal 1.4 - 4.0 gm/dL [facility] Remisol Glucose [Mass/Vol] 411 mg/dL High 55 - 199 mg/dL [facility] Remisol Potassium [Moles/Vol] 4.4 mmol/L Normal 3.5 - 5.3 mmol/L [facility] Remisol Protein [Mass/Vol] 7.1 g/dL Normal 6.0 - 7.8 gm/dL [facility] Remisol Sodium [Moles/Vol] 131 mmol/L Low 135 - 145 mmol/L [facility] Remisol Urea nitrogen [Mass/Vol] 37 mg/dL High 5 - 21 mg/dL [facility] Remisol Urea nitrogen/Creatinine [Mass ratio] 25 mg/mg High 10 - 20 [facility] Remisol CHEMISTRYOrdered By: Reid chun on 03-08-2022 Beta hydroxybutyrate [Moles/Vol] 0.12 mmol/L Normal 0.02 - 0.27 mmol/L [facility] Remisol HEMATOLOGYOrdered By: SYSTEM SYSTEM on 03-08-2022 Basophils/100 WBC (Bld) 0.7 % Normal 0.0 - 2.0 % [facility] HemeAutoSS Basophils/Leukocytes Auto (Bld) [Pure # fraction] 0.0 E9/L Normal 0.0 - 0.2 E9/L [facility] HemeAutoSS Eosinophils/100 WBC (Bld) 3.4 % Normal 0.0 - 8.0 % [facility] HemeAutoSS Eosinophils/Leukocyt es Auto (Bld) [Pure # fraction] 0.2 E9/L Normal 0.0 - 0.5 E9/L [facility]eAutoSS Lymphocytes/100 WBC (Bld) 9.7 % Low 14.0 - 50.0 % [facility] HemeAutoSS Lymphocytes/Leukocyt es Auto (Bld) [Pure # fraction] 0.5 E9/L Low 1.0 - 4.0 E9/L [facility]eAutoSS Monocytes/100 WBC (Bld) 11.2 % Normal 4.0 - 14.0 % [facility] HemeAutoSS Monocytes/Leukocytes Auto (Bld) [Pure # fraction] 0.5 E9/L Normal 0.2 - 1.0 E9/L [facility]eAutoSS Neutrophils/100 WBC (Bld) 75.0 % Normal 36.0 - 75.0 % [facility] HemeAutoSS Neutrophils/Leukocyt es Auto (Bld) [Pure # fraction] 3.7 E9/L Normal 2.0 - 7.5 E9/L [facility] HemeAutoSS HEMATOLOGYOrdered By: Sandra gordon on 03-08-2022 Erythrocyte distribution width (RBC) [Ratio] 13.4 % Normal 10.9 - 14.2 % [facility]eAutoSS Hematocrit (Bld) [Volume fraction] 43.7 % Normal 37.7 - 49.0 % [facility]eAutoSS Hemoglobin (Bld) [Mass/Vol] 14.9 g/dL Normal 13.5 - 17.5 gm/dL [facility]eAutoSS MCH (RBC) [Entitic mass] 30.8 pg Normal 27.0 - 34.0 pg [facility]eAutoSS MCHC (RBC) [Mass/Vol] 34.1 g/dL Normal 31.4 - 36.0 gm/dL [facility]eAutoSS MCV (RBC) [Entitic vol] 90.2 fL Normal 80.0 - 100.0 fL [facility]eAutoSS Platelet mean volume (Bld) [Entitic vol] 7.8 fL Normal 6.4 - 10.8 fL [facility]eAutoSS Platelets (Bld) [#/Vol] 186.0 E9/L Normal 150.0 - 500.0 E9/L [facility]eAutoSS RBC (Bld) [#/Vol] 4.8 E12/L Normal 4.3 - 5.9 E12/L [facility] HemeAutoSS WBC corrected for nucl RBC Auto (Bld) [#/Vol] 4.9 E9/L Normal 4.0 - 11.0 E9/L [facility] HemeAutoSS MICRO OTHER TESTSOrdered By: Sandra Chris on 03-08-2022 Influenzae A Ag Negative (03/08/22 11:09 PM) Normal Negative [facility] Man Sero Influenzae B Ag Negative (03/08/22 11:09 PM) Normal Negative [facility] Man Sero Rapid COV Int NEG Ctl Pass (03/08/22 11:09 PM) Normal [facility] Man Sero Rapid COV Int POS Ctl Pass (03/08/22 11:09 PM) Normal [facility] Man S[facility] SARS-CoV+SARS-CoV-2 (COVID-19) Ag IA.rapid Ql (Resp) Detected 3 *ABN* (03/08/22 11:09 PM) Invalid Interpretation Code Not Detected [facility] Comment on above: Result Comment: Resu lts Called To Evelia Moreno By SHIRA And Read Back For Confirmation On 03/08/2022 23:49:41 EDT Results Verified By Repeat Analysis URINALYSISOrdered By: Reid [email or web address] on 03-08-2022 Bilirubin Ql (U) Negative (03/08/22 11:09 PM) Normal Negative [facility] UA Auto SS Clarity (U) Clear (03/08/22 11:09 PM) Normal Clear [facility] UA Auto SS Color (U) Straw *ABN* (03/08/22 11:09 PM) Invalid Interpretation Code Yellow [facility] UA Auto SS Epithelial cells.squamous LM.HPF (Urine sed) [#/Area] 0-2 /HPF Normal 0-2/HPF [facility] UA Auto SS Glucose Test strip (U) [Mass/Vol] Trace *ABN* (03/08/22 11:09 PM) Invalid Interpretation Code Negative [facility] UA Auto SS Hemoglobin Ql (U) 1+ *ABN* (03/08/22 11:09 PM) Invalid Interpretation Code Negative [facility] UA Auto SS Ketones (U) [Mass/Vol] Negative (03/08/22 11:09 PM) Normal Negative [facility] UA Auto SS Bode.plasma/Lithi um.RBC (Bld) [Mass ratio] 0-3 /HPF Normal 0-3/HPF [facility]A Auto SS Nitrite Ql (U) Negative (03/08/22 11:09 PM) Normal Negative [facility] Auto SS pH (U) 6.0 *NA* (03/08/22 11:09 PM) Invalid Interpretation Code 5.0 - 9.0 [facility]A Auto SS Protein (U) [Mass/Vol] 2+ *ABN* (03/08/22 11:09 PM) Invalid Interpretation Code Negative [facility]A Auto SS Specific gravity (U) [Rel density] 1.010 *NA* (03/08/22 11:09 PM) Invalid Interpretation Code 1.005 - 1.030 [facility]A Auto SS UA Spec Desc Clean Catch (03/08/22 11:09 PM) Normal [facility]A Auto SS Urobilinogen Qn (U) [id number] {Itz'U}/dL Normal 0.0 - 1.0 EU/dL [facility] SS WBC Auto Ql (U) Negative (03/08/22 11:09 PM) Normal Negative [facility] Auto SS WBC LM.HPF (Urine sed) [#/Area] 0-5 /HPF Normal 0-5/HPF [facility]A Auto SS Vital Signs Date Time Vital Sign Value Performing Clinician Facility 03-13-2025 12:30-0400 Body height 180.3 cm Mounika Brooke MD Work Phone: [facility] 03-13-2025 12:30-0400 Body mass index (BMI) [Ratio] 38.02 kg/m2 Mounika Brooke MD Work Phone: [facility] 03-13-2025 12:30-0400 Body temperature 98.4 [degF] Mounika Brooke MD Work Phone: [facility] 03-13-2025 12:30-0400 Body weight 123.65 kg Mounika Brooke MD Work Phone: [facility] 03-13-2025 12:30-0400 Diastolic blood pressure 60 mm[Hg] Mounika Brooke MD Work Phone: [facility] 03-13-2025 12:30-0400 Heart rate 80 /min Mounika Brooke MD Work Phone: [facility] 03-13-2025 12:30-0400 SaO2% (BldA) [Mass fraction] 92 % Mounika Brooke MD Work Phone: [facility] 03-13-2025 12:30-0400 Systolic blood pressure 124 mm[Hg] Mounika Brooke MD Work Phone: [facility] 02-05-2025 12:28-0400 Body height 180.3 cm Mounika Brooke MD Work Phone: [facility] 02-05-2025 12:28-0400 Body mass index (BMI) [Ratio] 36.43 kg/m2 Mounika Brooke MD Work Phone: [facility] 02-05-2025 12:28-0400 Body temperature 98.71 [degF] Mounkia Brooke MD Work Phone: [facility] 02-05-2025 12:28-0400 Body weight 118.48 kg Mounika Brooke MD Work Phone: [facility] 02-05-2025 12:28-0400 Diastolic blood pressure 82 mm[Hg] Mounika Brooke MD Work Phone: [facility] 02-05-2025 12:28-0400 Heart rate 77 /min Mounika Brooke MD Work Phone: [facility] 02-05-2025 12:28-0400 SaO2% (BldA) [Mass fraction] 98 % Mounika Brooke MD Work Phone: [facility] 02-05-2025 12:28-0400 Systolic blood pressure 138 mm[Hg] Mounika Brooke MD Work Phone: [facility] 12-21-2024 15:22-0400 Hourly Rounding [facility] 12-21-2024 15:22-0400 Promise to Return [facility] 12-21-2024 14:32-0400 Hourly Rounding [facility] 12-21-2024 14:32-0400 Promise to Return [facility] 12-21-2024 13:30-0400 Hourly Rounding [facility] 12-21-2024 13:30-0400 Promise to Return [facility] 12-21-2024 11:00-0400 Blood Pressure Location [facility] 12-21-2024 11:00-0400 Body temperature 97.88 [degF] [facility] 12-21-2024 11:00-0400 Diastolic blood pressure 78 mm[Hg] [facility] 12-21-2024 11:00-0400 Heart rate 80 /min [facility] 12-21-2024 11:00-0400 Mean blood pressure 100 mm[Hg] [facility] 12-21-2024 11:00-0400 Respiratory rate 16 /min [facility] 12-21-2024 11:00-0400 SaO2% (BldA) [Mass fraction] 96 % [facility] 12-21-2024 11:00-0400 Systolic blood pressure 145 mm[Hg] [facility] 12-21-2024 08:00-0400 Diastolic blood pressure 88 mm[Hg] [facility] 12-21-2024 08:00-0400 Heart rate 76 /min [facility] 12-21-2024 08:00-0400 Mean blood pressure 113 mm[Hg] [facility] 12-21-2024 08:00-0400 SaO2% (BldA) [Mass fraction] 97 % [facility] 12-21-2024 08:00-0400 Systolic blood pressure 164 mm[Hg] [facility] 12-21-2024 04:00-0400 Body temperature 97.7 [degF] [facility] 12-21-2024 04:00-0400 Diastolic blood pressure 60 mm[Hg] [facility] 12-21-2024 04:00-0400 Diastolic blood pressure 76 mm[Hg] [facility] 12-21-2024 04:00-0400 Heart rate 95 /min [facility] 12-21-2024 04:00-0400 Heart rate 62 /min [facility] 12-21-2024 04:00-0400 Mean blood pressure 90 mm[Hg] [facility] 12-21-2024 04:00-0400 Mean blood pressure 72 mm[Hg] [facility] 12-21-2024 04:00-0400 Respiratory rate 18 /min [facility] 12-21-2024 04:00-0400 SaO2% (BldA) [Mass fraction] 95 % [facility] 12-21-2024 04:00-0400 Systolic blood pressure 97 mm[Hg] [facility] 12-21-2024 04:00-0400 Systolic blood pressure 118 mm[Hg] [facility] 12-21-2024 00:00-0400 Heart rate 62 /min [facility] 12-20-2024 19:37-0400 Heart rate 67 /min [facility] 12-20-2024 14:09-0400 SaO2% (BldA) [Mass fraction] 93.9 % [facility] Resp Auto SS 12-04-2024 14:11-0400 Body height 180.3 cm Mounika Brooke MD Work Phone: [facility] 12-04-2024 14:11-0400 Body mass index (BMI) [Ratio] 35.7 kg/m2 Mounika Brooke MD Work Phone: [facility] 12-04-2024 14:11-0400 Body temperature 97.5 [degF] Mounika Brooke MD Work Phone: [facility] 12-04-2024 14:11-0400 Body weight 116.12 kg Mounika Brooke MD Work Phone: [facility] 12-04-2024 14:11-0400 Diastolic blood pressure 70 mm[Hg] Mounika Brooke MD Work Phone: [facility] 12-04-2024 14:11-0400 Heart rate 111 /min Mounika Brooke MD Work Phone: [facility] 12-04-2024 14:11-0400 SaO2% (BldA) [Mass fraction] 97 % Mounika Brooke MD Work Phone: [facility] 12-04-2024 14:11-0400 Systolic blood pressure 120 mm[Hg] Mounika Brooke MD Work Phone: [facility] 12-02-2024 15:00-0400 Heart rate 74 /min Nicole Yolande [facility] 12-02-2024 15:00-0400 SaO2% (BldA) [Mass fraction] 93 % Nicole Yolande [facility] 12-02-2024 15:00-0400 Diastolic blood pressure 97 mm[Hg] Nicole Yolande [facility] 12-02-2024 15:00-0400 Mean blood pressure 120 mm[Hg] Nicole Yolande [facility] 12-02-2024 15:00-0400 Respiratory rate 18 /min Nicole Yolande [facility] 12-02-2024 15:00-0400 Systolic blood pressure 166 mm[Hg] Nicole Yolande [facility] 12-02-2024 14:00-0400 SaO2% (BldA) [Mass fraction] 97 % Nicole Yolande [facility] 12-02-2024 14:00-0400 Heart rate 78 /min Nicole Yolande [facility] 12-02-2024 14:00-0400 Diastolic blood pressure 86 mm[Hg] Nicole Yolande [facility] 12-02-2024 14:00-0400 Mean blood pressure 113 mm[Hg] Nicole Yolande [facility] 12-02-2024 14:00-0400 Systolic blood pressure 167 mm[Hg] Nicole Yolande [facility] 12-02-2024 13:00-0400 SaO2% (BldA) [Mass fraction] 96 % Nicole Yolande [facility] 12-02-2024 13:00-0400 Heart rate 73 /min Nicole Yolande [facility] 12-02-2024 13:00-0400 Diastolic blood pressure 98 mm[Hg] Nicole Myers [facility] 12-02-2024 13:00-0400 Mean blood pressure 123 mm[Hg] Nicole Myers [facility] 12-02-2024 13:00-0400 Systolic blood pressure 173 mm[Hg] Nicole Myers [facility] 12-02-2024 12:42-0400 Body temperature 96.8 [degF] Nicole Myers [facility] 12-02-2024 12:42-0400 Heart rate 81 /min Nicole Myers [facility] 12-02-2024 12:42-0400 Respiratory rate 20 /min Nicole Myers [facility] 09-04-2024 14:00-0500 Body height 180.3 cm Kayla Sweeney MD Work Phone: [facility] 09-04-2024 14:00-0500 Body mass index (BMI) [Ratio] 39.05 kg/m2 Kayla Sweeney MD Work Phone: [facility] 09-04-2024 14:00-0500 Body weight 127.01 kg Kayla Sweeney MD Work Phone: [facility] 09-04-2024 14:00-0500 Diastolic blood pressure 66 mm[Hg] Kayla Sweeney MD Work Phone: [facility] 09-04-2024 14:00-0500 Heart rate 80 /min Kayla Sweeney MD Work Phone: [facility] 09-04-2024 14:00-0500 Respiratory rate 18 /min Kayla Sweeney MD Work Phone: [facility] 09-04-2024 14:00-0500 Systolic blood pressure 116 mm[Hg] Kayla Sweeney MD Work Phone: [facility] 07-15-2024 14:27-0500 Body height 180.3 cm Kayla Sweeney MD Work Phone: [facility] 07-15-2024 14:27-0500 Body mass index (BMI) [Ratio] 38.22 kg/m2 Kayla Sweeney MD Work Phone: [facility] 07-15-2024 14:27-0500 Body weight 124.29 kg Kayla Sweeney MD Work Phone: [facility] 07-15-2024 14:27-0500 Diastolic blood pressure 58 mm[Hg] Kayla Sweeney MD Work Phone: [facility] 07-15-2024 14:27-0500 Heart rate 81 /min Kayla Sweeney MD Work Phone: [facility] 07-15-2024 14:27-0500 Respiratory rate 18 /min Kayla Sweeney MD Work Phone: [facility] 07-15-2024 14:27-0500 Systolic blood pressure 120 mm[Hg] Kayla Sweeney MD Work Phone: [facility] 07-11-2024 13:50-0500 Body height 175.3 cm Mounika Brooke MD Work Phone: [facility] 07-11-2024 13:50-0500 Body mass index (BMI) [Ratio] 43.15 kg/m2 Mounika Brooke MD Work Phone: [facility] 07-11-2024 13:50-0500 Body temperature 97.81 [degF] Mounika Brooke MD Work Phone: [facility] 07-11-2024 13:50-0500 Body weight 132.54 kg Mounika Brooke MD Work Phone: [facility] 07-11-2024 13:50-0500 Diastolic blood pressure 80 mm[Hg] Mounika Brooke MD Work Phone: [facility] 07-11-2024 13:50-0500 Heart rate 73 /min Mounika Brooke MD Work Phone: [facility] 07-11-2024 13:50-0500 SaO2% (BldA) [Mass fraction] 92 % Mounika Brooke MD Work Phone: [facility] 07-11-2024 13:50-0500 Systolic blood pressure 130 mm[Hg] Mounika Brooke MD Work Phone: [facility] 07-09-2024 14:40-0500 Body temperature 98.06 [degF] Nicole Myers [facility] 07-09-2024 14:40-0500 Diastolic blood pressure 93 mm[Hg] Nicole Myers [facility] 07-09-2024 14:40-0500 Heart rate 73 /min Nicole Myers [facility] 07-09-2024 14:40-0500 Respiratory rate 20 /min Nicole Myers [facility] 07-09-2024 14:40-0500 SaO2% (BldA) [Mass fraction] 96 % Nicole Myers [facility] 07-09-2024 14:40-0500 Systolic blood pressure 196 mm[Hg] Nicole Myers [facility] 07-03-2024 12:45-0500 Body mass index (BMI) [Ratio] 43.3 kg/m2 Mounika Brooke MD Work Phone: [facility] 07-03-2024 12:45-0500 Body temperature 98.01 [degF] Mounika Brooke MD Work Phone: [facility] 07-03-2024 12:45-0500 Body weight 133 kg Mounika Brooke MD Work Phone: [facility] 07-03-2024 12:45-0500 Heart rate 84 /min Mounika Brooke MD Work Phone: [facility] 07-03-2024 12:45-0500 SaO2% (BldA) [Mass fraction] 93 % Mounika Brooke MD Work Phone: [facility] 06-23-2024 13:39-0500 Body temperature 97.7 [degF] [facility] 06-23-2024 13:39-0500 Diastolic blood pressure 79 mm[Hg] [facility] 06-23-2024 13:39-0500 Heart rate 71 /min [facility] 06-23-2024 13:39-0500 Respiratory rate 22 /min [facility] 06-23-2024 13:39-0500 SaO2% (BldA) [Mass fraction] 92 % [facility] 06-23-2024 13:39-0500 Systolic blood pressure 182 mm[Hg] [facility] 06-21-2024 13:36-0400 Body height 177.8 cm Jennifer Short PA Work Phone: [facility] 06-21-2024 13:36-0400 Body mass index (BMI) [Ratio] 41.78 kg/m2 Jennifer Short PA Work Phone: [facility] 06-21-2024 13:36-0400 Body temperature 98.1 [degF] Jennifer Short PA Work Phone: [facility] 06-21-2024 13:36-0400 Body weight 132.09 kg Jennifer Short PA Work Phone: [facility] 06-21-2024 13:36-0400 Diastolic blood pressure 89 mm[Hg] Jennifer Short PA Work Phone: [facility] 06-21-2024 13:36-0400 Heart rate 71 /min Jennifer ROWAN Work Phone: [facility] 06-21-2024 13:36-0400 SaO2% (BldA) [Mass fraction] 91 % Jennifer Short PA Work Phone: [facility] 06-21-2024 13:36-0400 Systolic blood pressure 139 mm[Hg] Jennifer ROWAN Work Phone: [facility] 04-29-2024 14:19-0400 Body height 177.8 cm Mounika Brooke MD Work Phone: [facility] 04-29-2024 14:19-0400 Body mass index (BMI) [Ratio] 42.47 kg/m2 Mounika Brooke MD Work Phone: [facility] 04-29-2024 14:19-0400 Body temperature 98.01 [degF] Mounika Brooke MD Work Phone: [facility] 04-29-2024 14:19-0400 Body weight 134.26 kg Mounika Brooke MD Work Phone: [facility] 04-29-2024 14:19-0400 Diastolic blood pressure 70 mm[Hg] Mounika Brooke MD Work Phone: [facility] 04-29-2024 14:19-0400 Heart rate 75 /min Mounika Brooke MD Work Phone: [facility] 04-29-2024 14:19-0400 SaO2% (BldA) [Mass fraction] 88 % Mounika Brooke MD Work Phone: [facility] 04-29-2024 14:19-0400 Systolic blood pressure 138 mm[Hg] Mounika Brooke MD Work Phone: [facility] 02-09-2024 14:31-0400 Blood Pressure Location [facility] 02-09-2024 14:31-0400 Body temperature 97.88 [degF] Gisselle Orzech [facility] 02-09-2024 14:31-0400 Diastolic blood pressure 86 mm[Hg] Gisselle Orzech [facility] 02-09-2024 14:31-0400 Heart rate 72 /min Gisselle Orzech [facility] 02-09-2024 14:31-0400 Respiratory rate 16 /min Gisselle Orzech [facility] 02-09-2024 14:31-0400 Systolic blood pressure 138 mm[Hg] Gisselle Orzech [facility] 01-15-2024 17:00-0400 Diastolic blood pressure 89 mm[Hg] Nicole Yolande [facility] 01-15-2024 17:00-0400 Heart rate 77 /min Nicole Yolande [facility] 01-15-2024 17:00-0400 Mean blood pressure 102 mm[Hg] Nicole Yolande [facility] 01-15-2024 17:00-0400 Respiratory rate 15 /min Nicole Yolande [facility] 01-15-2024 17:00-0400 Systolic blood pressure 128 mm[Hg] Nicole Yolande [facility] 01-15-2024 16:24-0400 Diastolic blood pressure 93 mm[Hg] Nicole Yolande [facility] 01-15-2024 16:24-0400 Heart rate 69 /min Nicole Yolande [facility] 01-15-2024 16:24-0400 Respiratory rate 18 /min Nicole Myers [facility] 01-15-2024 16:24-0400 SaO2% (BldA) [Mass fraction] 92 % Nicole Myers [facility] 01-15-2024 16:24-0400 Systolic blood pressure 156 mm[Hg] Nicole Myers [facility] 11-17-2023 12:30-0400 Diastolic blood pressure 78 mm[Hg] MD Mounika Brooke Work Phone: [facility] 11-17-2023 12:30-0400 Systolic blood pressure 153 mm[Hg] MD Mounika Brooke Work Phone: [facility] 11-17-2023 12:12-0400 Heart rate 82 /min MD Mounika Brooke Work Phone: [facility] 11-17-2023 12:12-0400 Respiratory rate 20 /min MD Mounika Brooke Work Phone: [facility] 11-17-2023 11:26-0400 Body temperature 97.6 [degF] MD Mounika Brooke Work Phone: [facility] 11-17-2023 11:26-0400 SaO2% (BldA) [Mass fraction] 96 % MD Mounika Brooke Work Phone: [facility] 11-17-2023 09:15-0400 Inhaled oxygen flow rate 4 L/min MD Mounika Brooke Work Phone: [facility] 11-17-2023 04:17-0400 Body weight 133.2 kg MD Mounika Brooke Work Phone: [facility] 11-17-2023 00:50-0400 Inhaled oxygen concentration 40 % MD Mounika Brooke Work Phone: [facility] 11-13-2023 15:19-0400 Body height 180.34 cm MD Mounika Brooke Work Phone: [facility] 11-11-2023 16:30-0400 Diastolic blood pressure 65 mm[Hg] [facility] 11-11-2023 16:30-0400 Heart rate 63 /min [facility] 11-11-2023 16:30-0400 Mean blood pressure 79 mm[Hg] [facility] 11-11-2023 16:30-0400 Respiratory rate 18 /min [facility] 11-11-2023 16:30-0400 SaO2% (BldA) [Mass fraction] 96 % [facility] 11-11-2023 16:30-0400 Systolic blood pressure 106 mm[Hg] [facility] 11-11-2023 16:00-0400 Diastolic blood pressure 62 mm[Hg] [facility] 11-11-2023 16:00-0400 Heart rate 64 /min [facility] 11-11-2023 16:00-0400 Mean blood pressure 84 mm[Hg] [facility] 11-11-2023 16:00-0400 Respiratory rate 15 /min [facility] 11-11-2023 16:00-0400 Systolic blood pressure 128 mm[Hg] [facility] 11-11-2023 15:30-0400 Diastolic blood pressure 77 mm[Hg] [facility] 11-11-2023 15:30-0400 Heart rate 62 /min [facility] 11-11-2023 15:30-0400 Mean blood pressure 98 mm[Hg] [facility] 11-11-2023 15:30-0400 Respiratory rate 20 /min [facility] 11-11-2023 15:30-0400 SaO2% (BldA) [Mass fraction] 95 % [facility] 11-11-2023 15:30-0400 Systolic blood pressure 141 mm[Hg] [facility] 11-11-2023 09:31-0400 FIO2 50 1 [facility] 11-11-2023 09:31-0400 Respiratory rate 20 /min [facility] 11-11-2023 09:17-0400 SaO2% (BldA) [Mass fraction] 88.7 % [facility] 11-11-2023 09:15-0400 Respiratory rate 24 /min [facility] 11-11-2023 09:07-0400 Respiratory rate 24 /min [facility] 11-11-2023 09:05-0400 Body temperature 98.6 [degF] [facility] 11-11-2023 09:05-0400 Heart rate 77 /min [facility] 11-11-2023 09:05-0400 Heart rate 76 /min [facility] 11-11-2023 08:05-0400 Body temperature 98.6 [degF] [facility] 10-30-2023 05:17-0400 Body temperature 98.42 [degF] KaylNanosolarn Dokken [facility] 10-30-2023 05:17-0400 Diastolic blood pressure 70 mm[Hg] Kaylinn Dokken [facility] 10-30-2023 05:17-0400 Heart rate 80 /min Kaylinn Dokken [facility] 10-30-2023 05:17-0400 Respiratory rate 20 /min AfterYesylNanosolarn Dokken [facility] 10-30-2023 05:17-0400 SaO2% (BldA) [Mass fraction] 94 % Staci Beck [facility] 10-30-2023 05:17-0400 Systolic blood pressure 153 mm[Hg] Staci Beck [facility] 10-24-2023 23:08-0500 SaO2% (BldA) [Mass fraction] 93 % [facility] Comment on above: Order Comment: Specimen Type: BLOOD SPEC IMEN Ordering Facility: [facility] Address: [address] [place] [address] Performed By: #### 1 [id number], [id number] #### [facility] CLIA [id number] [address] [place] [address] [facility] 10-24-2023 18:39-0500 SaO2% (BldA) [Mass fraction] 96 % [facility] Comment on above: Order Comment: Specimen Type: BLOOD SPEC IMEN Ordering Facility: [facility] Address: [address] [place] [address] Performed By: #### P TTAC #### [facility] CLIA [id number] [address] [place] [address] [facility] 10-15-2023 06:20-0500 SaO2% (BldA) [Mass fraction] 98 % Mone Martinez [facility] 10-15-2023 06:12-0500 Body temperature 98.06 [degF] Mone Martinez [facility] 10-15-2023 06:12-0500 Diastolic blood pressure 75 mm[Hg] Mone Martinez [facility] 10-15-2023 06:12-0500 Heart rate 77 /min Mone Martinez [facility] 10-15-2023 06:12-0500 Respiratory rate 20 /min Mone Martinez [facility] 10-15-2023 06:12-0500 SaO2% (BldA) [Mass fraction] 98 % Mone Martinez [facility] 10-15-2023 06:12-0500 Systolic blood pressure 145 mm[Hg] Mnoe Martinez [facility] 10-12-2023 11:38-0500 Body temperature 97 [degF] MD Mounika Brooke Work Phone: [facility] 10-12-2023 11:38-0500 Diastolic blood pressure 76 mm[Hg] MD Mounika Brooke Work Phone: [facility] 10-12-2023 11:38-0500 Heart rate 74 /min MD Mounika Brooke Work Phone: [facility] 10-12-2023 11:38-0500 Inhaled oxygen flow rate 4 L/min MD Mounika Brooke Work Phone: [facility] 10-12-2023 11:38-0500 Respiratory rate 18 /min MD Mounika Brooke Work Phone: [facility] 10-12-2023 11:38-0500 SaO2% (BldA) [Mass fraction] 97 % MD Mounika Brooke Work Phone: [facility] 10-12-2023 11:38-0500 Systolic blood pressure 148 mm[Hg] MD Mounika Brooke Work Phone: [facility] 10-12-2023 05:08-0500 Body weight 135.6 kg MD Mounika Brooke Work Phone: [facility] 10-12-2023 00:00-0500 Inhaled oxygen concentration 4 % MD Mounika Brooke Work Phone: [facility] 10-09-2023 14:10-0500 Body height 182.88 cm MD Mounika Brooke Work Phone: [facility] 10-06-2023 23:47-0500 Body temperature 98.4 [degF] MD Mounika Brooke Work Phone: [facility] 10-06-2023 23:47-0500 Diastolic blood pressure 78 mm[Hg] MD Mounika Brooke Work Phone: [facility] 10-06-2023 23:47-0500 Heart rate 80 /min MD Mounika Brooke Work Phone: [facility] 10-06-2023 23:47-0500 Inhaled oxygen flow rate 6 L/min MD Mounika Brooke Work Phone: [facility] 10-06-2023 23:47-0500 Respiratory rate 20 /min MD Mounika Brooke Work Phone: [facility] 10-06-2023 23:47-0500 SaO2% (BldA) [Mass fraction] 94 % MD Mounika Brooke Work Phone: [facility] 10-06-2023 23:47-0500 Systolic blood pressure 160 mm[Hg] MD Mounika Brooke Work Phone: [facility] 10-06-2023 20:13-0500 Body height 182.88 cm MD Mounika Brooke Work Phone: [facility] 10-06-2023 20:13-0500 Body weight 136.98 kg MD Mounika Brooke Work Phone: [facility] 09-24-2023 20:07-0500 Body temperature 97.52 [degF] Jose Miguel Sylvester [facility] 09-24-2023 20:07-0500 Diastolic blood pressure 75 mm[Hg] Jose Miguel Sylvester [facility] 09-24-2023 20:07-0500 Heart rate 80 /min Jose Miguel Sylvester [facility] 09-24-2023 20:07-0500 Respiratory rate 18 /min Jose Miguel Sylvester [facility] 09-24-2023 20:07-0500 SaO2% (BldA) [Mass fraction] 93 % Jose Miguel Sylvester [facility] 09-24-2023 20:07-0500 Systolic blood pressure 150 mm[Hg] [facility] Sylvester [facility] 09-17-2023 15:00-0500 Diastolic blood pressure 67 mm[Hg] [facility] 09-17-2023 15:00-0500 Heart rate 80 /min [facility] [facility] 09-17-2023 15:00-0500 Mean blood pressure 94 mm[Hg] [facility] 09-17-2023 15:00-0500 Respiratory rate 18 /min [facility] 09-17-2023 15:00-0500 SaO2% (BldA) [Mass fraction] 93 % [facility] 09-17-2023 15:00-0500 Systolic blood pressure 147 mm[Hg] [facility] 09-17-2023 14:23-0500 Body temperature 98.24 [degF] [facility] 09-17-2023 14:23-0500 Diastolic blood pressure 56 mm[Hg] [facility] 09-17-2023 14:23-0500 Heart rate 79 /min [facility] 09-17-2023 14:23-0500 Respiratory rate 20 /min [facility] 09-17-2023 14:23-0500 SaO2% (BldA) [Mass fraction] 92 % [facility] 09-17-2023 14:23-0500 Systolic blood pressure 99 mm[Hg] [facility] 08-06-2023 13:13-0500 Body temperature 97.88 [degF] [facility] 08-06-2023 13:13-0500 Diastolic blood pressure 78 mm[Hg] [facility] 08-06-2023 13:13-0500 Heart rate 91 /min [facility] 08-06-2023 13:13-0500 Respiratory rate 20 /min [facility] 08-06-2023 13:13-0500 SaO2% (BldA) [Mass fraction] 93 % [facility] 08-06-2023 13:13-0500 Systolic blood pressure 178 mm[Hg] [facility] 06-21-2023 13:55-0400 Diastolic blood pressure 74 mm[Hg] DO [facility] 06-21-2023 13:55-0400 Inhaled oxygen flow rate 4 L/min DO [facility] 06-21-2023 13:55-0400 SaO2% (BldA) [Mass fraction] 94 % DO [facility] 06-21-2023 13:55-0400 Systolic blood pressure 152 mm[Hg] DO [facility] 06-21-2023 13:52-0400 Body temperature 97.3 [degF] DO [facility] 06-21-2023 13:52-0400 Heart rate 72 /min DO [facility] 06-21-2023 13:52-0400 Respiratory rate 20 /min DO [facility] 06-21-2023 06:00-0400 Body weight 147.4 kg DO [facility] 06-19-2023 15:26-0400 Body height 182.88 cm DO [facility] 06-19-2023 02:16-0400 Diastolic blood pressure 77 mm[Hg] DO Reid Mendy Work Phone: [facility] 06-19-2023 02:16-0400 Heart rate 77 /min DO Reid Mendy Work Phone: [facility] 06-19-2023 02:16-0400 Inhaled oxygen flow rate 6 L/min DO Reid Mendy Work Phone: [facility] 06-19-2023 02:16-0400 Respiratory rate 20 /min DO Reid Mendy Work Phone: [facility] 06-19-2023 02:16-0400 SaO2% (BldA) [Mass fraction] 91 % DO Reid Mendy Work Phone: [facility] 06-19-2023 02:16-0400 Systolic blood pressure 170 mm[Hg] DO Reid Mendy Work Phone: [facility] 06-18-2023 21:43-0400 Body height 182.88 cm DO Reid Mendy Work Phone: [facility] 06-18-2023 21:43-0400 Body temperature 98.5 [degF] DO Reid Mendy Work Phone: [facility] 06-18-2023 21:43-0400 Body weight 140.61 kg DO Reid Mendy Work Phone: [facility] 06-15-2023 17:22-0400 Hourly Rounding [facility] 06-15-2023 17:22-0400 Promise to Return [facility] 06-15-2023 16:25-0400 Hourly Rounding [facility] 06-15-2023 16:25-0400 Promise to Return [facility] 06-15-2023 16:20-0400 Heart rate 84 /min [facility] 06-15-2023 16:20-0400 Respiratory rate 20 /min [facility] 06-15-2023 16:07-0400 Heart rate 80 /min [facility] 06-15-2023 16:07-0400 Respiratory rate 20 /min [facility] 06-15-2023 16:07-0400 SaO2% (BldA) [Mass fraction] 93 % [facility] 06-15-2023 16:00-0400 Body temperature 98.42 [degF] [facility] 06-15-2023 16:00-0400 Diastolic blood pressure 79 mm[Hg] [facility] 06-15-2023 16:00-0400 Heart rate 88 /min [facility] 06-15-2023 16:00-0400 Systolic blood pressure 176 mm[Hg] [facility] 06-15-2023 15:25-0400 Hourly Rounding [facility] 06-15-2023 15:25-0400 Promise to Return [facility] 06-15-2023 12:02-0400 Heart rate 83 /min [facility] 06-15-2023 12:02-0400 Respiratory rate 20 /min [facility] 06-15-2023 12:02-0400 SaO2% (BldA) [Mass fraction] 92 % [facility] 06-15-2023 11:54-0400 SaO2% (BldA) [Mass fraction] 92 % [facility] 06-15-2023 10:15-0400 Diastolic blood pressure 87 mm[Hg] [facility] 06-15-2023 10:15-0400 Mean blood pressure 114 mm[Hg] [facility] 06-15-2023 10:15-0400 Systolic blood pressure 168 mm[Hg] [facility] 06-15-2023 10:15-0400 Body temperature 98.06 [degF] [facility] 06-15-2023 08:30-0400 gluc 172 mg/dL [facility] 06-15-2023 07:35-0400 Diastolic blood pressure 83 mm[Hg] [facility] 06-15-2023 07:35-0400 Mean blood pressure 112 mm[Hg] [facility] 06-15-2023 07:35-0400 Systolic blood pressure 168 mm[Hg] [facility] 06-15-2023 07:33-0400 Body temperature 98.06 [degF] [facility] 06-15-2023 00:39-0400 Blood Pressure Location [facility] 06-14-2023 20:00-0400 Body temperature 98.42 [degF] [facility] 06-14-2023 16:12-0400 Blood Pressure Location [facility] 06-14-2023 16:12-0400 Body temperature 97.7 [degF] [facility] 06-14-2023 16:12-0400 Mean blood pressure 123 mm[Hg] [facility] 06-14-2023 08:20-0400 Mean blood pressure 122 mm[Hg] [facility] 06-14-2023 08:19-0400 Body temperature 98.06 [degF] [facility] 06-14-2023 05:50-0400 FIO2 50 % [facility] 06-14-2023 00:50-0400 Mean blood pressure 108 mm[Hg] [facility] 06-13-2023 23:55-0400 FIO2 50 % [facility] 06-13-2023 20:00-0400 gluc 190 mg/dL Cindy PAGANGENESIS [facility] 06-13-2023 11:54-0400 FIO2 50 % Cindy PAGANGENESIS [facility] 06-13-2023 08:00-0400 Blood Pressure Location Cindy RICARDO [facility] 06-13-2023 08:00-0400 Mean blood pressure 104 mm[Hg] Cindy RICARDO [facility] 06-12-2023 16:38-0400 gluc 296 mg/dL Cindy RICARDO [facility] 06-11-2023 21:00-0400 Heart rate 73 /min [facility] 06-11-2023 20:25-0400 Heart rate 75 /min [facility] 06-11-2023 19:30-0400 Respiratory rate 16 /min [facility] 06-11-2023 18:30-0400 Respiratory rate 14 /min [facility] 06-11-2023 14:22-0400 SaO2% (BldA) [Mass fraction] 90.8 % [facility] 05-22-2023 13:29-0400 Blood Pressure Location Migue STROUD [facility] 05-22-2023 13:29-0400 Diastolic blood pressure 74 mm[Hg] Migue STROUD [facility] 05-22-2023 13:29-0400 Heart rate 74 /min Migue STROUD [facility] 05-22-2023 13:29-0400 SaO2% (BldA) [Mass fraction] 87 % Migue STROUD [facility] 05-22-2023 13:29-0400 Systolic blood pressure 135 mm[Hg] Migue STROUD [facility] 05-08-2023 10:30-0400 Diastolic blood pressure 81 mm[Hg] Bashar Bellevue [facility] 05-08-2023 10:30-0400 Mean blood pressure 113 mm[Hg] Bashar [facility]vue [facility] 05-08-2023 10:30-0400 Systolic blood pressure 176 mm[Hg] Bashar [facility]vue [facility] 05-08-2023 10:01-0400 Blood Pressure Location Bashar [facility] 05-08-2023 10:01-0400 Diastolic blood pressure 84 mm[Hg] Bashar [facility] 05-08-2023 10:01-0400 Heart rate 68 /min Bashar [facility] 05-08-2023 10:01-0400 SaO2% (BldA) [Mass fraction] 88 % Bashar [facility]vue [facility] 05-08-2023 10:01-0400 Systolic blood pressure 175 mm[Hg] Bashar [facility] 12-02-2022 11:12-0400 Diastolic blood pressure 86 mm[Hg] Migue KLINEWOOD [facility] 12-02-2022 11:12-0400 Mean blood pressure 105 mm[Hg] Migue MARLI [facility] 12-02-2022 11:12-0400 Systolic blood pressure 142 mm[Hg] Migue MARLI [facility] 12-02-2022 10:55-0400 Blood Pressure Location Migue MARLI [facility] 12-02-2022 10:55-0400 Diastolic blood pressure 82 mm[Hg] Migue KLINEWOOD [facility] 12-02-2022 10:55-0400 Heart rate 74 /min Migue KLINEWOOD [facility] 12-02-2022 10:55-0400 SaO2% (BldA) [Mass fraction] 92 % Migue KLINEWOOD [facility] 12-02-2022 10:55-0400 Systolic blood pressure 169 mm[Hg] Migue MARLI [facility] 09-13-2022 13:21-0500 Diastolic blood pressure 92 mm[Hg] Migue KLINEWOOD [facility] 09-13-2022 13:21-0500 Mean blood pressure 115 mm[Hg] Migue MARLI [facility] 09-13-2022 13:21-0500 Systolic blood pressure 160 mm[Hg] Migue MARLI [facility] 09-13-2022 13:16-0500 Blood Pressure Location Migue KLINEWOOD [facility] 09-13-2022 13:16-0500 Body temperature 97.7 [degF] Migue KLINEWOOD [facility] 09-13-2022 13:16-0500 Diastolic blood pressure 83 mm[Hg] Migue MARLI [facility] 09-13-2022 13:16-0500 Heart rate 78 /min Migue KLINEWOOD [facility] 09-13-2022 13:16-0500 SaO2% (BldA) [Mass fraction] 96 % Migue STROUD [facility] 09-13-2022 13:16-0500 Systolic blood pressure 193 mm[Hg] Migue STROUD [facility] 08-04-2022 17:12-0500 Diastolic blood pressure 88 mm[Hg] Mone Juan [facility] 08-04-2022 17:12-0500 Heart rate 76 /min Mone Juan [facility] 08-04-2022 17:12-0500 Mean blood pressure 102 mm[Hg] Mone Juan [facility] 08-04-2022 17:12-0500 Respiratory rate 18 /min Mone Juan [facility] 08-04-2022 17:12-0500 SaO2% (BldA) [Mass fraction] 100 % Mone Juan [facility] 08-04-2022 17:12-0500 Systolic blood pressure 130 mm[Hg] Mone Juan [facility] 08-04-2022 16:30-0500 Diastolic blood pressure 96 mm[Hg] Mone Juan [facility] 08-04-2022 16:30-0500 Heart rate 74 /min Mone Juan [facility] 08-04-2022 16:30-0500 Mean blood pressure 109 mm[Hg] Mone Juan [facility] 08-04-2022 16:30-0500 Respiratory rate 16 /min Mone Juan [facility] 08-04-2022 16:30-0500 SaO2% (BldA) [Mass fraction] 97 % Mone Juan [facility] 08-04-2022 16:30-0500 Systolic blood pressure 134 mm[Hg] Mone Martinez [facility] 08-04-2022 15:35-0500 Diastolic blood pressure 103 mm[Hg] Mone Martinez [facility] 08-04-2022 15:35-0500 Heart rate 73 /min Mone Martinez [facility] 08-04-2022 15:35-0500 Respiratory rate 16 /min Mone Martinez [facility] 08-04-2022 15:35-0500 SaO2% (BldA) [Mass fraction] 97 % Mone Martinez [facility] 08-04-2022 15:35-0500 Systolic blood pressure 138 mm[Hg] Mone Martinez [facility] 08-04-2022 13:08-0500 Body temperature 97.88 [degF] Mone Martinez [facility] 08-04-2022 13:08-0500 Heart rate 80 /min Mone Martinez [facility] 03-29-2022 13:04-0400 Blood Pressure Location Migue STROUD [facility] 03-29-2022 13:04-0400 Body temperature 96.98 [degF] Migue STROUD [facility] 03-29-2022 13:04-0400 Diastolic blood pressure 73 mm[Hg] Migue STROUD [facility] 03-29-2022 13:04-0400 Heart rate 72 /min Migue STROUD [facility] 03-29-2022 13:04-0400 SaO2% (BldA) [Mass fraction] 95 % Migue STROUD [facility] 03-29-2022 13:04-0400 Systolic blood pressure 132 mm[Hg] Migue STROUD [facility] 03-09-2022 00:59-0400 Body temperature 98.6 [degF] Jose Miguel Sylvester [facility] 03-08-2022 23:56-0400 Body temperature 100.58 [degF] Jose Miguel Sylvester [facility] 03-08-2022 23:56-0400 Diastolic blood pressure 74 mm[Hg] Jose Miguel Sylvester [facility] 03-08-2022 23:56-0400 Heart rate 95 /min Jose Miguel Sylvester [facility] 03-08-2022 23:56-0400 Mean blood pressure 98 mm[Hg] Jose Miguel Sylvester [facility] 03-08-2022 23:56-0400 SaO2% (BldA) [Mass fraction] 90 % Jose Miguel Sylvester [facility] 03-08-2022 23:56-0400 Systolic blood pressure 146 mm[Hg] Jose Miguel Sylvester [facility] 03-08-2022 22:56-0400 Body temperature 97.7 [degF] Jose Miguel Sylvester [facility] 03-08-2022 22:56-0400 Diastolic blood pressure 77 mm[Hg] Jsoe Miguel Sylvester [facility] 03-08-2022 22:56-0400 Heart rate 92 /min Jose Miguel Sylvester [facility] 03-08-2022 22:56-0400 Respiratory rate 15 /min Jose Miguel Sylvester [facility] 03-08-2022 22:56-0400 SaO2% (BldA) [Mass fraction] 94 % Jose Miguel Sylvester [facility] 03-08-2022 22:56-0400 Systolic blood pressure 132 mm[Hg] Jose Miguel Sylvester [facility] 01-11-2022 12:33-0400 Blood Pressure Location Migue STROUD [facility] 01-11-2022 12:33-0400 Body temperature 98.06 [degF] Migue STROUD [facility] 01-11-2022 12:33-0400 Diastolic blood pressure 82 mm[Hg] Migue STROUD [facility] 01-11-2022 12:33-0400 Heart rate 72 /min Migue STROUD [facility] 01-11-2022 12:33-0400 SaO2% (BldA) [Mass fraction] 96 % Migue STROUD [facility] 01-11-2022 12:33-0400 Systolic blood pressure 134 mm[Hg] Migue STROUD [facility] Encounters Encounter Date Encounter Type Care Provider Facility Start: 03-24-2025 End: 03-24-2025 Telephone encounter Mounika Brooke MD Work Phone: [facility] Comment on above: Care Coordination Start: 03-13-2025 End: 03-13-2025 Sandy Brooke MD Work Phone: [facility] Start: 03-13-2025 End: 03-13-2025 Sandy Brooke MD Work Phone: [facility] Start: 03-13-2025 End: 03-13-2025 Transitional care manage srvc 7 day discharge Mounika Brooke MD Work Phone: [facility] Comment on above: Hospital discharge f ollow-up (Primary Dx); Type 2 diabetes mellitus with hyperglycemia, with long-term current use of insulin (HCC); Hyperosmolar hyperglycemic state (HHS) ([facility]); Muscle cramps; Long-term insulin use (HCC); Difficulty walking; Essential (primary) hypertension ; Morbid obesity ([facility]-HCC); BMI 38.0-38.9,adult Start: 03-13-2025 End: 03-13-2025 ambulatory MOUNIKA BROOKE Not Available Start: 03-05-2025 End: 03-07-2025 Evaluation and management of inpatient Jigna Suarez [place] [place] Start: 03-05-2025 Emergency department patient visit Maria Luisa Steiner [place] [place] Start: 02-05-2025 End: 02-05-2025 Telephone encounter Aggie WILLETT Comment on above: Care Coordination Start: 02-05-2025 End: 02-05-2025 ambulatory MOUNIKA BROOKE Not Available Start: 02-05-2025 End: 02-05-2025 Office outpatient visit 25 minutes Mounika Brooke MD Work Phone: [facility] Comment on above: Chronic hypoxemic re spiratory failure (HCC) (Primary Dx); Leg weakness, bilateral; Essential (primary) hypertension ; Difficulty walking; Type 2 diabetes mellitus with hyperglycemia, with long-term current use of insulin (HCC); Long-term insulin use (HCC); Morbid obesity (CMS-HCC); BMI 36.0-36.9,adult Start: 01-22-2025 End: 01-22-2025 Refill Brittani Marcano MA [facility] Comment on above: Anxiousness (Primary Dx) Start: 12-26-2024 End: 12-26-2024 ambulatory Maria Luisa Steiner [place] [place] Start: 12-26-2024 End: 12-26-2024 Office outpatient visit 15 minutes Mounika Brooke MD Work Phone: [facility] Comment on above: Muscle cramps (Prima ry Dx); Varicose veins of both lower extremities, unspecified whether complicated; Type 2 diabetes mellitus with hyperglycemia, with long-term current use of insulin (CMS/HCC); Essential (primary) hypertension (CMS/HCC) Start: 12-25-2024 End: 12-25-2024 Office outpatient visit 25 minutes Kayla Sweeney MD Work Phone: [facility] Comment on above: Type 2 diabetes perla itus with hyperglycemia, with long-term current use of insulin (CMS/HCC) (Primary Dx); Insulin long-term use (CMS/HCC); Vitamin D deficiency; Encounter for dietary consultation; Hyperlipemia, mixed (CMS/HCC); Primary hypertension (CMS/HCC) Start: 12-24-2024 End: 12-24-2024 Bamboo flowsheet Kayla Sweeney MD Work Phone: [facility] Start: 12-24-2024 End: 12-24-2024 Bamboo flowsheet Kayla Sweeney MD Work Phone: [facility] Start: 12-22-2024 End: 12-22-2024 Emergency department patient visit Dwight Shaffer Facility:[facility] Start: 12-20-2024 End: 12-21-2024 ambulatory Toni Gutierrez [place] [place] Start: 12-20-2024 Emergency department patient visit Nicole Myers [place] [place] Start: 12-20-2024 End: 12-21-2024 Observation Toni Gutierrez III [facility] Start: 12-19-2024 End: 12-19-2024 Emergency department patient visit Corky Luo [place] [place] Start: 12-18-2024 End: 12-18-2024 Bamboo flowsheet Mone Mcguire PT Work Phone: [facility] Start: 12-18-2024 End: 12-18-2024 Bamboo flowsheet Mone Mcguire PT Work Phone: [facility] Start: 12-18-2024 End: 12-18-2024 ambulatory Mone Mcguire PT Work Phone: [facility] Comment on above: Primary osteoarthrit is of both knees (Primary Dx) Start: 12-10-2024 End: 12-10-2024 Telephone encounter Mounika Brooke MD Work Phone: [facility] Comment on above: Care Coordination Start: 12-04-2024 End: 12-04-2024 ambulatory MOUNIKA BROOKE Not Available Start: 12-04-2024 End: 12-04-2024 Office outpatient visit 25 minutes Mounika Brooke MD Work Phone: [facility] Comment on above: Chronic hypoxemic re spiratory failure (CMS/HCC) (Primary Dx); Acute cough; Chest congestion; Type 2 diabetes mellitus with hyperglycemia, with long-term current use of insulin (CMS/HCC); Long-term insulin use (CMS/HCC); Difficulty walking; Leg weakness, bilateral; BMI 35.0-35.9,adult; Morbid obesity (CMS/HCC); Type 2 diabetes mellitus with diabetic chronic kidney disease (CMS/HCC); Chronic kidney disease, stage 3b (HCC) (CMS/HCC); Essential (primary) hypertension (CMS/HCC); Acquired absence of left foot (CMS/HCC); Need for immunization against influenza; Need for pneumococcal vaccination Start: 12-02-2024 End: 12-02-2024 Emergency department patient visit Nicole Myers [facility] Start: 09-04-2024 End: 09-04-2024 ambulatory Taz THOMAS Facility:[facility] Start: 09-04-2024 End: 09-04-2024 Patient encounter procedure Taz THOMAS [facility] Start: 09-04-2024 End: 09-04-2024 Office outpatient visit 25 minutes Kayla Sweeney MD Work Phone: [facility] Comment on above: Type 2 diabetes perla itus with hyperglycemia, with long-term current use of insulin (CMS/HCC) (Primary Dx); Insulin long-term use ([facility]); Vitamin D deficiency; Encounter for dietary consultation; Hyperlipemia, mixed (CMS/[facility]); Primary hypertension ([facility]/HCC) Start: 09-04-2024 End: 09-04-2024 Bamboo flowsheet Kayla Sweeney MD Work Phone: [facility] Start: 09-04-2024 End: 09-04-2024 Bamboo flowsheet Kayla Sweeney MD Work Phone: [facility] Start: 09-04-2024 End: 09-04-2024 ambulatory KAYLA SWEENEY Not Available Start: 08-06-2024 End: 08-06-2024 Telephone encounter Mounika Brooke MD Work Phone: [facility] Comment on above: Referral Start: 07-22-2024 End: 07-22-2024 ambulatory PERLITA MEEKS Not Available Start: 07-22-2024 End: 07-22-2024 Follow-up encounter Perlita Meeks MD Work Phone: [facility] Comment on above: Follow-up Start: 07-22-2024 End: 07-22-2024 Bamboo flowsheet Perlita Meeks MD Work Phone: [facility] Start: 07-22-2024 End: 07-22-2024 Bamboo flowskavon Meeks MD Work Phone: [facility] Start: 07-15-2024 End: 07-15-2024 ambulatory KAYLA SWEENEY Not Available Start: 07-15-2024 End: 07-15-2024 Office outpatient visit 25 minutes Kayla Sweeney MD Work Phone: [facility] Comment on above: Type 2 diabetes perla itus with hyperglycemia, with long-term current use of insulin (CMS/HCC) (Primary Dx); Insulin long-term use (CMS/HCC); Vitamin D deficiency; Encounter for dietary consultation; Hyperlipemia, mixed (CMS/HCC); Primary hypertension (CMS/HCC); Class 2 severe obesity due to excess calories with serious comorbidity and body mass index (BMI) of 38.0 to 38.9 in adult (CMS/HCC) Start: 07-11-2024 End: 07-11-2024 Bamboo flowskavon Brooke MD Work Phone: [facility] Start: 07-11-2024 End: 07-11-2024 Bamboo jaxon Brooke MD Work Phone: [facility] Start: 07-11-2024 End: 07-11-2024 Office outpatient visit 25 minutes Mounika Brooke MD Work Phone: [facility] Comment on above: Acute pain of right shoulder (Primary Dx); Chronic hypoxemic respiratory failure (CMS/HCC); Hypertension, unspecified type (CMS/HCC); BMI 40.0-44.9, adult (CMS/HCC); Morbid obesity (CMS/HCC) Start: 07-11-2024 End: 07-11-2024 ambulatory MOUNIKA BROOKE Not Available Start: 07-09-2024 End: 07-09-2024 Emergency department patient visit Nicole Myers [facility] Start: 07-03-2024 End: 07-03-2024 Bamboo flowsheet Mounika Brooke MD Work Phone: [facility] Start: 07-03-2024 End: 07-03-2024 Bamboo flowsheet Mounika Brooke MD Work Phone: [facility] Start: 07-03-2024 End: 07-03-2024 Office outpatient visit 25 minutes Mounika Brooke MD Work Phone: [facility] Comment on above: Difficulty walking ( Primary Dx); Acute on chronic respiratory failure with hypoxia and hypercapnia (CMS/HCC); Hypertension, unspecified type (CMS/HCC); Type 2 diabetes mellitus with hyperglycemia, with long-term current use of insulin (CMS/HCC); Morbid obesity (CMS/HCC); BMI 40.0-44.9, adult ([facility]/HCC) Start: 07-03-2024 End: 07-03-2024 ambulatory MOUNIKA BROOKE Not Available Start: 06-24-2024 End: 06-24-2024 Telephone encounter Jennifer ROWAN Work Phone: [facility] Start: 06-23-2024 End: 06-23-2024 Emergency department patient visit Alejandro Reddygris [facility] Start: 06-21-2024 End: 06-21-2024 ambulatory Jennifer SHORT [place] [place] Start: 06-21-2024 End: 06-21-2024 Patient encounter procedure Jennifer SHORT [facility] Start: 06-21-2024 End: 06-21-2024 Bamboo flowsheet Jennifer Short PA Work Phone: [facility] Start: 06-21-2024 End: 06-21-2024 Bamboo flowsheet Jennifer Short PA Work Phone: [facility] Start: 06-21-2024 End: 06-21-2024 Office outpatient visit 25 minutes Jennifer Short PA Work Phone: [facility] Comment on above: Type 2 diabetes perla itus with hyperglycemia, with long-term current use of insulin (CMS/HCC) (Primary Dx); Chronic cough; Chest wall pain; Non-recurrent acute serous otitis media of right ear Start: 06-21-2024 End: 06-21-2024 ambulatory JENNIFER SHORT Not Available Start: 05-22-2024 End: 05-22-2024 Bamboo flowsheet Perlita Meeks MD Work Phone: [facility] Start: 05-22-2024 End: 05-22-2024 Bamboo flowsheet Perlita Meeks MD Work Phone: [facility] Start: 05-22-2024 End: 05-22-2024 Clinical Support Perlita Meeks MD Work Phone: [facility] Comment on above: Retinal Injection Start: 05-22-2024 End: 05-22-2024 ambulatory PERLITA MEEKS Not Available Start: 04-29-2024 End: 04-29-2024 Bamboo flowsheet Mounika Brooke MD Work Phone: [facility] Start: 04-29-2024 End: 04-29-2024 Bamboo flowsheet Mounika Brooke MD Work Phone: [facility] Start: 04-29-2024 End: 04-29-2024 Patient encounter procedure Mounika Brooke MD Work Phone: [facility] Comment on above: Encounter for Medica re annual wellness exam (Primary Dx); Type 2 diabetes mellitus with hyperglycemia, without long-term current use of insulin (CMS/HCC); RLS (restless legs syndrome); Chronic hypoxemic respiratory failure (CMS/HCC); Stage 3b chronic kidney disease (HCC) (CMS/HCC); Oxygen dependent; Morbid obesity (CMS/HCC); BMI 40.0-44.9, adult (CMS/HCC); Other diabetic neurological complication associated with type 2 diabetes mellitus ([facility]); TC (obstructive sleep apnea); Restless leg syndrome; Acute on chronic respiratory failure with hypoxia and hypercapnia ([facility]); Obesity hypoventilation syndrome ([facility]); Hypertension, unspecified type ([facility]); Varicose veins of both lower extremities, unspecified whether complicated; Gastroesophageal reflux disease, unspecified whether esophagitis present; 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 ([facility]); Mixed hyperlipidemia ([facility]); Long-term insulin use ([facility]) Start: 04-29-2024 End: 04-30-2024 Telephone encounter Mounika Brooke MD Work Phone: [facility] Comment on above: Care Coordination Start: 04-29-2024 End: 04-29-2024 ambulatory MOUNIKA BROOKE Not Available Start: 04-23-2024 End: 04-23-2024 Bamboo flowsheet Perlita Meeks MD Work Phone: [facility] Start: 04-23-2024 End: 04-23-2024 Bamboo flowsheet Perlita Meeks MD Work Phone: [facility] Start: 04-23-2024 End: 04-23-2024 Clinical Support Perlita Meeks MD Work Phone: [facility] Comment on above: Retinal Injection Start: 04-23-2024 End: 04-23-2024 ambulatory PERLITA MEEKS Not Available Start: 04-15-2024 End: 04-15-2024 Office outpatient new 45 minutes Perlita Meeks MD Work Phone: [facility] Comment on above: 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 with type 1 diabetes mellitus, unspecified proliferative retinopathy type ([facility]/HCC) (Primary Dx); 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 1 diabetes mellitus ([facility]) Start: 04-15-2024 End: 04-15-2024 ambulatory PERLITA MEEKS Not Available Start: 04-15-2024 End: 04-15-2024 Bamboo flowsheet Perlita Meeks MD Work Phone: [facility] Start: 04-15-2024 End: 04-15-2024 Quebojeremy janeheet Perlita Meeks MD Work Phone: [facility] Start: 03-11-2024 End: 03-11-2024 ambulatory Taz THOMAS [place] [place] Start: 03-11-2024 End: 03-11-2024 Patient encounter procedure Taz THOMAS [facility] Start: 03-06-2024 End: 03-06-2024 ambulatory Sukh R Dolce [place] Start: 03-06-2024 End: 03-06-2024 Patient encounter procedure Sukh R Dolce [facility] Start: 02-28-2024 End: 02-28-2024 ambulatory Sukh R Dolce [place] Start: 02-28-2024 End: 02-28-2024 Patient encounter procedure Sukh R Dolce [facility] Start: 02-28-2024 End: 02-28-2024 ambulatory Taz THOMAS Facility:[facility] Start: 02-28-2024 End: 02-28-2024 Patient encounter procedure Taz THOMAS [facility] Start: 02-15-2024 End: 02-15-2024 ambulatory Shannon J Galea Facility:[facility] Start: 02-15-2024 End: 02-15-2024 Patient encounter procedure Shannon J Galea [facility] Start: 02-14-2024 End: 02-14-2024 ambulatory Taz THOMAS Facility:[facility] Start: 02-14-2024 End: 02-14-2024 Patient encounter procedure Taz THOMAS [facility] Start: 02-09-2024 End: 02-09-2024 ambulatory Gisselle X Orzech Facility:[facility] Start: 02-09-2024 End: 02-09-2024 Patient encounter procedure Gisselle X Orzech [facility] Start: 02-05-2024 End: 02-05-2024 ambulatory Taz THOMAS [place] Start: 02-05-2024 End: 02-05-2024 Patient encounter procedure Taz THOMAS [facility] Start: 01-31-2024 End: 01-31-2024 ambulatory Sukh Zarina Harrington [place] [place] [place] Start: 01-31-2024 End: 01-31-2024 Patient encounter procedure Sukhnii Harrington [facility] Start: 01-23-2024 End: 01-23-2024 ambulatory Smooth Annbert [place] [place] Start: 01-23-2024 End: 01-23-2024 Patient encounter procedure Smooth Annbert [facility] Start: 01-17-2024 End: 01-18-2024 Pre-admission assessment Smooth Harrington [facility] Start: 01-15-2024 End: 01-15-2024 Emergency department patient visit Nicole Myers [facility] Start: 01-12-2024 End: 01-12-2024 ambulatory LIBERTY PATRICK Facility:[facility] Start: 01-12-2024 End: 01-12-2024 Patient encounter procedure LIBERTY PATRICK [facility] Start: 01-02-2024 End: 01-02-2024 ambulatory Smooth Harrington [place] Start: 01-02-2024 End: 01-02-2024 Patient encounter procedure Smooth Harrington [facility] Start: 12-26-2023 End: 12-26-2023 ambulatory Smooth Harrington [place] Start: 12-26-2023 End: 12-26-2023 Patient encounter procedure Smooth Harrington [facility] Start: 12-19-2023 End: 12-19-2023 ambulatory Smooth Harrington [place] Start: 12-19-2023 End: 12-19-2023 Patient encounter procedure Smooth Harrington [facility] Start: 12-15-2023 End: 12-15-2023 ambulatory Taz THOMAS Facility:[facility] Start: 12-15-2023 End: 12-15-2023 Patient encounter procedure Taz THOMAS [facility] Start: 12-12-2023 End: 12-12-2023 ambulatory Smooth Harrington [place] [place] Start: 12-12-2023 End: 12-12-2023 Patient encounter procedure Smooth Harrington [facility] Start: 11-23-2023 Patient encounter procedure Esau Truong APRN.[employer]ER [employer] Work Phone: [facility] Start: 11-23-2023 Progress Note Esau Truong APRN.[employer]ATHER [employer]FTSM[employer] Work Phone: [facility] Start: 11-20-2023 End: 11-20-2023 Patient encounter procedure Taz THOMAS [facility] Start: 11-20-2023 Progress Note Alvaro Herrera Work Phone: [facility] Start: 11-20-2023 End: 11-20-2023 ambulatory Taz THOMAS [place] [place] [place] Start: 11-12-2023 Non-patient / Non-visit MD Jermaine Brooke Work Phone: [facility] Nephrology Work Phone: Start: 11-11-2023 Non-patient / Non-visit MD Jermaine Brooke Work Phone: [facility] Out[facility] Work Phone: Start: 11-11-2023 End: 11-17-2023 Evaluation and management of inpatient MD Mounika Brooke Work Phone: [facility] Work Phone: Start: 11-11-2023 End: 11-11-2023 Emergency department patient visit Alejandro Silva [facility] Start: 11-01-2023 End: 11-01-2023 ambulatory Taz THOMAS Facility:[facility] Start: 11-01-2023 End: 11-01-2023 Patient encounter procedure Taz THOMAS [facility] Start: 10-31-2023 Telephone encounter Mounika christianson MD Work Phone: [facility] Comment on above: Follow Up Phone Call (Post Discharge F/U - attempt made. No answer.) Start: 10-30-2023 End: 10-30-2023 Emergency department patient visit Staci Beck [facility] Start: 10-23-2023 End: 10-28-2023 Evaluation and management of inpatient SHASHANii CHUADAD Facility:[facility] Start: 10-18-2023 End: 10-18-2023 ambulatory Taz THOMAS Facility:[facility] Start: 10-18-2023 End: 10-18-2023 Patient encounter procedure Taz Abraham MARTHA [facility] Start: 10-15-2023 End: 10-15-2023 Emergency department patient visit Mone Martinez [facility] Start: 10-13-2023 End: 10-13-2023 ambulatory MD Mounika Brooke Work Phone: [facility] Work Phone: Start: 10-13-2023 End: 10-13-2023 Patient encounter procedure MD Mounika Brooke Work Phone: [facility] [place] Work Phone: Start: 10-09-2023 Non-patient / Non-visit MD Jermaine Brooke Work Phone: [facility] Work Phone: Start: 10-08-2023 Non-patient / Non-visit MD Jermaine Brooke Work Phone: [facility] Work Phone: Start: 10-07-2023 Non-patient / Non-visit MD Jermaine Brooke Work Phone: [facility] Work Phone: Start: 10-06-2023 End: 10-12-2023 Evaluation and management of inpatient MD Mounika Brooke Work Phone: [facility] Work Phone: Start: 10-05-2023 End: 10-05-2023 ambulatory Gisselle X Orzech Facility:[facility] Start: 10-05-2023 End: 10-05-2023 Patient encounter procedure Gisselle X Orzech [facility] Start: 10-04-2023 End: 10-04-2023 ambulatory Sukh Harrington [place] [place] Start: 10-04-2023 End: 10-04-2023 Patient encounter procedure Sukh Harrington [facility] Start: 10-03-2023 ambulatory Smooth Harrington Facility:[facility] Start: 10-02-2023 End: 12-31-2023 ambulatory Nicole Thompson [place] Start: 10-02-2023 End: 12-31-2023 Recurring Nicole Thompson [facility] Start: 09-26-2023 End: 09-26-2023 ambulatory Gisselle Myah Javedvaoseas Facility:[facility] Start: 09-25-2023 Sandy christiansen MD Work Phone: [facility] Start: 09-25-2023 Sandy christiansen MD Work Phone: [facility] Start: 09-24-2023 End: 09-24-2023 Emergency department patient visit Jose Miguel Phan [facility] Start: 09-21-2023 Chart abstracting Mounika christianson MD Work Phone: [facility] Start: 09-18-2023 End: 09-12-2023 Pre-admission assessment Smooth Harrington [facility] Start: 09-17-2023 End: 09-17-2023 Emergency department patient visit Alejandro Vossfili [facility] Start: 09-12-2023 End: 09-16-2023 Evaluation and management of inpatient XXXX [facility] [place] Start: 09-05-2023 End: 09-05-2023 ambulatory Smooth Harrington [place] Start: 09-05-2023 End: 09-05-2023 Patient encounter procedure Smooth Harrington [facility] Start: 08-30-2023 End: 08-30-2023 Patient encounter procedure Sukh Harrington [facility] Start: 08-24-2023 End: 08-24-2023 Patient encounter procedure Migue STROUD [facility] Start: 08-16-2023 End: 08-16-2023 Patient encounter procedure Sukh Harrington [facility] Start: 08-06-2023 End: 08-06-2023 Emergency department patient visit Alejandro Linn Shira [facility] Start: 08-02-2023 End: 08-02-2023 Patient encounter procedure Sukh Harrington [facility] Start: 07-19-2023 End: 07-19-2023 Patient encounter procedure Sukh Harrington [facility] Start: 06-28-2023 End: 06-28-2023 Patient encounter procedure Sukh Harrington [facility] Start: 06-26-2023 End: 06-26-2023 Patient encounter procedure Migue STROUD [facility] Start: 06-19-2023 End: 06-21-2023 Evaluation and management of inpatient DO Reidlinn LoganMendy Work Phone: [facility] Work Phone: Start: 06-11-2023 End: 06-15-2023 Evaluation and management of inpatient Cindy RICARDO [facility] Start: 06-07-2023 End: 06-07-2023 Patient encounter procedure Sukh Harrington [facility] Start: 05-24-2023 End: 05-24-2023 Off-Site Migue STROUD [facility] Start: 05-22-2023 End: 05-22-2023 Lab Drop off Migue STROUD [facility] Start: 05-22-2023 End: 05-22-2023 Patient encounter procedure Migue STROUD [facility] Start: 05-08-2023 End: 05-08-2023 Patient encounter procedure Bashar X [place] [facility] Start: 05-02-2023 End: 05-03-2023 Pre-admission assessment Sukh Harrington [facility] Start: 05-01-2023 End: 05-01-2023 Patient encounter procedure Sukh Harrington [facility] Start: 04-26-2023 End: 04-26-2023 Patient encounter procedure Sukh Harrington [facility] Start: 04-25-2023 End: 04-25-2023 Patient encounter procedure Smooth Elizondo Juany [facility] Start: 04-19-2023 End: 04-19-2023 Patient encounter procedure Sukh Harrington [facility] Start: 04-03-2023 End: 04-03-2023 Patient encounter procedure Migue STROUD [facility] Start: 12-26-2022 End: 12-26-2022 Patient encounter procedure Migue STROUD [facility] Start: 12-02-2022 End: 12-02-2022 Patient encounter procedure Migue STROUD [facility] Start: 09-21-2022 End: 10-18-2022 Off-Site Migue STROUD [facility] Start: 09-13-2022 End: 09-13-2022 Patient encounter procedure Migue STROUD [facility] Start: 08-21-2022 End: 09-20-2022 Off-Site Migue STROUD [facility] Start: 08-04-2022 End: 08-04-2022 Emergency department patient visit Mone Martinez [facility] Start: 03-29-2022 End: 03-29-2022 Patient encounter procedure Migue STROUD [facility] Start: 03-21-2022 End: 04-20-2022 Off-Site Migue STROUD [facility] Start: 03-08-2022 End: 03-09-2022 Emergency department patient visit Jose Miguel Phan [facility] Start: 01-11-2022 End: 01-11-2022 Patient encounter procedure Migue STROUD [facility] Start: 12-28-2021 End: 12-28-2021 Off-Site Migue STROUD [facility] Procedures Date Procedure Procedure Detail Performing Clinician Start: 09-04-2024 Gluc bld gluc mntr d ev cleared fda spec home use Kayla Sweeney MD Work Phone: Start: 07-22-2024 Intravitreal njx pharmacologic agt spx Perlita Meeks MD Work Phone: Start: 07-22-2024 Computerized ophthal corky imaging retina Perlita Meeks MD Work Phone: Start: 07-15-2024 Gluc bld gluc mntr d ev cleared fda spec home use Kayal Sweeney MD Work Phone: Start: 06-21-2024 Hemoglobin glycosyla maria guadalupe a1c Jennifer ROWAN Work Phone: Start: 05-22-2024 Intravitreal njx pharmacologic agt spx Perlita Meeks MD Work Phone: Start: 05-22-2024 Computerized ophthal corky imaging retina Perlita Meeks MD Work Phone: Start: 04-23-2024 Intravitreal njx pharmacologic agt spx Perlita Meeks MD Work Phone: Start: 04-15-2024 Computerized ophthal corky imaging retina Perlita Meeks MD Work Phone: Start: 11-12-2023 Plain chest X-ray MD Bipin Brooke Work Phone: Start: 11-11-2023 Urine culture MD Mounika Brooke Work Phone: Start: 10-08-2023 Ultrasonography of bilateral kidneys MD Mounika Brooke Work Phone: Start: 10-06-2023 Plain chest X-ray MD Bipin Juradoes Work Phone: Start: 10-06-2023 Blood culture for bacteria, including anaerobic screen MD Mounika Brooke Work Phone: Start: 10-06-2023 SARS-CoV-2, Influenz a & RSV (PCR) MD Mounika Brooke Work Phone: Start: 06-18-2023 Plain chest X-ray DO Daniel luke Kirby Start: 06-18-2023 SARS-CoV-2, Influenz a & RSV (PCR) DO Reid Brooke Work Phone: Start: 10-24-2017 Cataract extraction and insertion of intraocular lens Migue STROUD Comment on above: LEFT Start: 09-19-2017 Cataract extraction and insertion of intraocular lens Migue STROUD Comment on above: right Start: 05-31-2017 Incision AND drainage J louis STROUD Comment on above: Left foot Start: 04-12-2017 Split thickness skin graft Migue STROUD Comment on above: left foot Start: 02-01-2017 surgical preparation of left foot ulceration for skin grafting with versajet and application of stravix skin graft to left foot ulcer Migue STROUD Start: 04-13-2015 left foot TMA with packing, partial closure Migue STROUD Start: 04-10-2015 delayed secondary cl osure of the left foot wound with VersaJet debridement as well as pulse lavage. excision of ulceration to the plantar left foot with single lobe rotation skin plasty flap for closure Migue STROUD Start: 04-08-2015 left transmetatarsal amputation with partial closure with iodoform gauze packing. incision and drainage of left infected foot with Pulsavac and pulse lavage Migue STROUD Start: 07-23-2014 aggressive wound debridement to right subfourth metatarsal head ulceration with Versa jet sharp debridement as well as application of Dermagraft Migue STROUD Start: 10-16-[address] irby of foot abscess with wound cultures as well as partial fifth ray amputation with digit, left foot, with pulsed lavage Migue STROUD History of amputatio n of foot Acquired absence of left foot ([facility]) Mounika Brooke MD Work Phone: Umbilical Hernia Repair [place] STROUD Plan of Treatment Date Care Activity Detail Author Start: 03-13-2026 Urine screening for protein Diabetes: Urine Protein Screening [facility] Start: 07-22-2025 Glaucoma screening Diabetes: R etinopathy Screening [facility] Start: 04-29-2025 Medicare Annual Well ness (AWV) Medicare Annual Wellness (AWV) [facility] Start: 04-23-2025 Glaucoma screening Diabetes: R etinopathy Screening [facility] Start: 04-21-2025 Influenza vaccination Influenza Vacc ine (#1) [facility] Start: 04-15-2025 Glaucoma screening Diabetes: R etinopathy Screening [facility] Start: 03-13-2025 End: 03-13-2025 Patient encounter procedure 03/13/2025 12:20 PM EDT Office Visit [facility] [address] [place] [phone] Mounika Brooke MD [address] [place] [address] Arrived DEBBIE WILLETT Comment on above: Arrived Start: 03-11-2025 Urine screening for protein Diabetes: Urine Protein Screening [facility] Start: 02-05-2025 End: 02-05-2025 Patient encounter procedure 02/05/2025 12:20 PM EDT Office Visit [facility] [address] [place] [id number] [phone] Mounika Brooke MD [address] [place] [address] [facility] Start: 12-31-2024 End: 12-31-2024 Patient encounter procedure 12/31/2024 2:20 PM EDT Office Visit [facility] [address] [place] [address] Kayla Sweeney MD [address] [place] [address] [facility] Start: 12-26-2024 End: 12-26-2024 Patient encounter procedure 12/26/2024 3:20 PM EDT Office Visit [facility] [address] [place] [address] Mounika Brooke MD [address] [place] [address] [facility] Start: 12-26-2024 End: 12-26-2025 CBC W Auto Differential panel - Blood CBC and differential Lab Routine Muscle cramps Expected: 12/26/2024 (Approximate), Expires: 12/26/2025 [facility] Work Phone: Comment on above: Expected: 12/26/2024 (Approximate), Expires: 12/26/2025 Start: 12-26-2024 End: 12-26-2025 Comprehensive metabolic 2000 panel - Serum or Plasma Comprehensive metabolic panel Lab Routine Muscle cramps Expected: 12/26/2024 (Approximate), Expires: 12/26/2025 [facility] Comment on above: Expected: 12/26/2024 (Approximate), Expires: 12/26/2025 Start: 12-26-2024 End: 12-26-2025 Magnesium [Mass/volume] in Serum or Plasma Magnesium Lab Routine Muscle cramps Expected: 12/26/2024 (Approximate), Expires: 12/26/2025 [facility] Comment on above: Expected: 12/26/2024 (Approximate), Expires: 12/26/2025 Start: 12-04-2024 End: 12-04-2024 Patient encounter procedure 12/04/2024 2:40 PM EDT Office Visit [facility] [address] [place] [address] Kayla Sweeney MD [address] [place] [address] [facility] Start: 12-03-2024 Hemoglobin A1c measurement Diabetes: Hemoglobin A1C [facility] Start: 11-21-2024 End: 11-21-2024 Patient encounter procedure 11/21/2024 1:30 PM EDT Office Visit [facility] [address] [place] [phone] Perlita Meeks MD [address] [place] [address] [facility] Start: 10-27-2024 Complete blood count Hemoglobin/Martinez tocrit [facility] Start: 10-27-2024 Creatinine measurement Serum Creatin ine [facility] Start: 10-24-2024 Hepatitis B surface antibody level LDL Cholesterol [facility] Start: 09-21-2024 Hemoglobin A1c measurement Diabetes: Hemoglobin A1C [facility] Start: 09-04-2024 End: 09-04-2024 Patient encounter procedure [facility] Comment on above: Type 2 diabetes perla itus with hyperglycemia, with long-term current use of insulin ([facility]) Start: 09-04-2024 End: 09-04-2025 25-hydroxyvitamin D3 [Mass/volume] in Serum or Plasma Vitamin D 25 hydroxy Total Lab Routine Type 2 diabetes mellitus with hyperglycemia, with long-term current use of insulin ([facility]) Expected: 09/04/2024 (Approximate), Expires: 09/04/2025 [facility] Comment on above: Expected: 09/04/2024 (Approximate), Expires: 09/04/2025 Start: 09-04-2024 End: 09-04-2025 C-peptide C-peptide Lab Routine Type 2 diabetes mellitus with hyperglycemia, with long-term current use of insulin ([facility]) Expected: 09/04/2024 (Approximate), Expires: 09/04/2025 [facility] Work Phone: Comment on above: Expected: 09/04/2024 (Approximate), Expires: 09/04/2025 Start: 09-04-2024 End: 09-04-2025 Lipid 1996 panel - Serum or Plasma Lipid panel Lab Routine Type 2 diabetes mellitus with hyperglycemia, with long-term current use of insulin ([facility]) Expected: 09/04/2024 (Approximate), Expires: 09/04/2025 [facility] Comment on above: Expected: 09/04/2024 (Approximate), Expires: 09/04/2025 Start: 09-04-2024 End: 09-04-2025 Microalbumin/Creatinine panel in random Urine Microalbumin / creatinine urine ratio Lab Routine Type 2 diabetes mellitus with hyperglycemia, with long-term current use of insulin ([facility]) Expected: 09/04/2024 (Approximate), Expires: 09/04/2025 [facility] Comment on above: Expected: 09/04/2024 (Approximate), Expires: 09/04/2025 Start: 09-04-2024 End: 09-04-2025 Renal function panel Renal function panel Lab Routine Type 2 diabetes mellitus with hyperglycemia, with long-term current use of insulin ([facility]) Expected: 09/04/2024 (Approximate), Expires: 09/04/2025 [facility] Comment on above: Expected: 09/04/2024 (Approximate), Expires: 09/04/2025 Start: 08-09-2024 Urine screening for protein Diabetes: Urine Protein Screening [facility] Start: 07-22-2024 End: 07-22-2024 Clinical Support 07/22/2024 2:15 PM EST Clinical Support [facility] [address] [place] [phone] Perlita Meeks MD [address] [place] [place] [address] [facility] Start: 07-15-2024 End: 07-15-2024 Chart abstracting 07/15/2024 Abstract [facility] [address] [place] [phone] Kayla Sweeney MD [address] [place] [address] [facility] Start: 07-15-2024 End: 07-15-2024 Patient encounter procedure 07/15/2024 1:40 PM EST Office Visit [facility] [address] [place] [phone] Kayla Sweeney MD [address] [place] [address] [facility] Start: 07-11-2024 End: 07-11-2024 Clinical Support [facility] Comment on above: Arrived Start: 06-27-2024 End: 06-27-2024 Clinical Support 06/27/2024 2:15 PM EST Clinical Support [facility] [address] [place] [phone] Perlita Meeks MD [address] [place] [address] [facility] Start: 06-21-2024 End: 06-21-2025 XR Chest 2 Views XR chest 2 views Imaging Routine Chronic cough Chest wall pain Expected: 06/21/2024, Expires: 06/21/2025 [facility] Work Phone: Comment on above: Expected: 06/21/2024 , Expires: 06/21/2025 Start: 06-21-2024 End: 06-21-2024 Patient encounter procedure 06/21/2024 1:30 PM EDT Office Visit [facility] [address] [place] [phone] Jennifer Short PA [address] [place] [address] Arrived [facility] Comment on above: Arrived Start: 05-23-2024 End: 05-23-2024 Clinical Support 05/23/2024 10:15 AM EDT Clinical Support [facility] [address] [place] [phone] Perlita Meeks MD [address] [place] [address] [facility] Start: 05-22-2024 End: 05-22-2024 Clinical Support 05/22/2024 2:00 PM EDT Clinical Support [facility] [address] [place] [phone] Perlita Meeks MD [address] [place] [address] Arrived [facility] Comment on above: Arrived Start: 04-29-2024 End: 04-29-2024 Patient encounter procedure 04/29/2024 2:00 PM EDT Office Visit [facility] [address] [place] [phone] Mounika Brooke MD [address] [place] [address] Arrived [facility] Comment on above: Arrived Start: 04-23-2024 End: 04-23-2024 Clinical Support 04/23/2024 10:45 AM EDT Clinical Support [facility] [address] [place] [phone] Perlita Meeks MD [address] [place] [address] Arrived [facility] Comment on above: Arrived Start: 04-21-2024 Influenza vaccination [facility] Start: 04-15-2024 End: 04-15-2024 Patient encounter procedure 04/15/2024 2:30 PM EDT Office Visit [facility] [address] [place] [phone] Perlita Meeks MD [address] [place] [address] Arrived [facility] Comment on above: Arrived Start: 01-24-2024 Hemoglobin A1c measurement [facility] Start: 11-17-2023 [facility] Start: 11-11-2023 Hospital admission [facility] Start: 11-11-2023 [facility] Start: 11-11-2023 Referral to cryptologist [facility] Start: 10-12-2023 [facility] Start: 10-08-2023 Referral to cryptologist [facility] Start: 10-07-2023 Hospital admission [facility] Start: 10-07-2023 [facility] Start: 10-06-2023 Plain chest X-ray XR chest 1V portab [facility] Start: 10-06-2023 XR Chest Single view [facility] Start: 10-06-2023 Bacteria identified in Blood by Culture [facility] Start: 09-25-2023 End: 09-25-2023 Patient encounter procedure [facility] Comment on above: Arrived Start: 08-21-2023 Behavioral Health Screening Behavioral Health Screening [facility] Start: 08-21-2023 Depression Assessment Depression Ass essment [facility] Start: 06-23-2023 Blood chemistry [facility] Start: 06-23-2023 [facility] Start: 06-22-2023 Blood chemistry [facility] Start: 06-22-2023 [facility] Start: 06-21-2023 Blood chemistry [facility] Start: 06-21-2023 End: 06-21-2023 [facility] Start: 06-20-2023 Consultation [facility] Start: 06-20-2023 Blood chemistry [facility] Start: 06-20-2023 [facility] Start: 06-19-2023 Administration of prophylactic treatment [facility] Start: 06-19-2023 Blood chemistry [facility] Start: 06-19-2023 [facility] Start: 06-19-2023 Hospital admission [facility] Start: 06-19-2023 [facility] Start: 06-18-2023 Plain chest X-ray XR chest 1V portab le [facility] Start: 06-18-2023 XR Chest Single view Fi [facility] Start: 04-21-2023 Covid-19 Vaccine ( season) Covid-19 Vaccine ( season) [facility] Start: 08-07-2019 Pneumococcal vaccination Pneum ococcal Vaccine (2 of 2 - PCV) [facility] Start: 08-07-2019 Pneumococcal Vaccine : 65+ Years (2 of 2 - PCV) Pneumococcal Vaccine: 65+ Years (2 of 2 - PCV) [facility] Start: 2019 RSV Vaccine (1 - 1-d ose 60+ series) RSV Vaccine (1 - 1-dose 60+ series) [facility] Start: 2014 Prostate specific antigen measurement Prostate Cancer Screening Discussion [facility] Start: 2009 Shingrix Vaccine (1 of 2) Shingrix Vaccine (1 of 2) [facility] Start: 01-08-2004 Screening for malign ant neoplasm of colon [facility] Start: 1978 Urine microalbumin profile DTaP,Tdap,Td Vaccine (1 - Tdap) [facility] Start: 1977 Annual PCP Team [employer] loida Disease Visit Annual PCP Team Chronic Disease Visit [facility] Start: 1977 BP Controlled (<130/80) BP Con trolled (<130/80) [facility] Start: 1977 Hepatitis C screening Hepatitis C Sc carlos albertoning [facility] Start: 1977 HIV screening HIV Screening [facility] Start: 1969 Diabetic foot examination Diabetic Foot Exam [facility] Start: 1969 Glaucoma screening [facility] Start: 1969 Hepatitis B screening Urine Albumin:Creatinine Ratio [facility] Start: 1959 Hemoglobin A1c measurement Diabetes: Hemoglobin A1C [facility] Start: 1959 Medicare Annual Well ness (AWV) Medicare Annual Wellness (AWV) [facility] Start: 1959 Screening for malign ant neoplasm of colon [facility] Anion gap measurement [facility] Basophils [#/volume] in Blood by Automated count [facility] Basophils/100 leukoc ytes in Blood by Automated count [facility] Eosinophils [#/volum e] in Blood [facility] Eosinophils/100 leukocytes in Blood by Automated count [facility] Erythrocyte distribu tion width [Ratio] by Automated count [facility] Erythrocytes [#/volu me] in Blood [facility] Hematocrit [Volume Fraction] of Blood [facility] Hemoglobin [Mass/vol ume] in Blood [facility] Leukocytes [#/volume ] corrected for nucleated erythrocytes in Blood by Automated coun [facility] Leukocytes [#/volume ] in Blood [facility] Lymphocytes [#/volum e] in Blood by Automated count [facility] Lymphocytes/100 leukocytes in Blood by Automated count [facility] MCH [Entitic mass] b y Automated count [facility] MCHC [Mass/volume] b y Automated count [facility] MCV [Entitic volume] by Automated count [facility] Monocytes [#/volume] in Blood by Automated count [facility] Monocytes/100 leukoc ytes in Blood by Automated count [facility] Neutrophils [#/volum e] in Blood by Automated count [facility] Neutrophils/100 leukocytes in Blood by Automated count [facility] Nucleated erythrocyt es [Presence] in Blood by Automated count [facility] Patient Education [facility] Work Phone: Patient referral [facility] Work Phone: Platelet mean volume [Entitic volume] in Blood by Automated count [facility] Platelets [#/volume] in Blood [facility] Immunizations Immunization Date Immunization Notes Care Provider Fa cility 12-04-2024 Pneumococcal Conjuga te PCV 20 Mounika Brooke MD Work Phone: [facility] 12-04-2024 Seasonal, trivalent, recombinant, injectable influenza vaccine, preservative free Mounika Brooke MD Work Phone: [facility] 12-04-2024 influenza virus vacc ine, unspecified formulation Mounika Brooke MD Work Phone: [facility] 11-24-2023 tuberculin skin test ; purified protein derivative solution, intradermal Mounika Brooke MD Work Phone: [facility] 11-17-2023 tuberculin skin test ; purified protein derivative solution, intradermal Mounika Brooke MD Work Phone: [facility] 05-22-2023 influenza, injectabl e, quadrivalent, preservative free Migue STROUD [facility] 05-22-2023 influenza virus vacc ine, unspecified formulation Perlita Meeks MD Work Phone: [facility] 06-17-2022 COVID-19, mRNA, LNP- S, bivalent booster, PF, 30 mcg/0.3 mL dose Mnoe Martinez [facility] 06-17-2022 influenza, injectabl e, quadrivalent, preservative free Mone Martinez [facility] 06-17-2022 SARS-CoV-2, Unspecified Zahra Brooke MD Work Phone: [facility] 07-27-2021 COVID-19, mRNA, LNP- S, PF, 100 mcg or 50 mcg dose Migue STROUD [facility] 07-20-2021 influenza, injectabl e, quadrivalent, preservative free Migue STROUD [facility] 12-03-2020 SARS-CoV-2 (COVID-19 ) mRNA-1273 vaccine Migue STROUD [facility] 11-02-2020 SARS-CoV-2 (COVID-19 ) mRNA-1273 vaccine Migue STROUD [facility] 06-04-2019 influenza, injectabl e, quadrivalent, contains preservative Migue STROUD [facility] 08-07-2018 influenza virus vacc ine, unspecified formulation Jose Miguel Sylvester [facility] 08-07-2018 influenza, injectabl e, quadrivalent, contains preservative Mounika Brooke MD Work Phone: [facility] 08-07-2018 pneumococcal polysaccharide vaccine, 23 valent Miguecora STROUD [facility] 11-24-2015 pneumococcal polysaccharide vaccine, 23 valent Jose Miguel Tomlinner [facility] Payers Date Payer Category Payer Self-pay [id number] 2024 Medicare (Managed Care) 1.2. [id number] 2024 Private Health Insurance [id number] 2023 Medicare [id number] 2023 Unknown [employer] [id number] 2023-Present [address] [place] [id number] 2023 Medicare [id number] 2023 Medicaid [id number] 2023 Medicaid [id number] 2022 Medicare [id number]. 1.13.159.2.7 .[id number] 1959 Unknown [id number] 2.16.840.1.625963.3.579.2.7 1959 Unknown [id number] 2.16.840.1.333075.3.579.2.7 1959 Unknown [id number] 2.16.840.1.120266.3.579.2.7 1959 Unknown [id number] 2.16.840.1.340327.3.579.2.7 1959 Unknown [id number] 2.16.840.1.558893.3.579.2.7 1959 Unknown [id number] 2.16.840.1.956593.3.579.2.7 1959 Unknown [id number] 2.16.840.1.194554.3.579.2.7 1959 Unknown [id number] 2.16.840.1.092086.3.579.2.7 1959 Unknown [id number] 2.16.840.1.543177.3.579.2.7 1959 Unknown [id number] 2.16.840.1.408161.3.579.2.7 1959 Unknown [id number] 2.16.840.1.552028.3.579.2.7 1959 Unknown [id number] 2.16.840.1.613465.3.579.2.7 1959 Unknown [id number] 2.16.840.1.740494.3.579.2.7 1959 Unknown [id number] 2.16.840.1.746647.3.579.2.7 1959 Unknown [id number] 2.16.840.1.794284.3.579.2.7 1959 Unknown [id number] 2.16.840.1.805943.3.579.2.7 1959 Unknown [id number] 2.16.840.1.585059.3.579.2.7 1959 Unknown [id number] 2.16.840.1.812543.3.579.2.7 1959 Unknown [id number] 2.16.840.1.358439.3.579.2.7 1959 Unknown [id number] 2.16.840.1.174055.3.579.2.7 1959 Unknown [id number] 2.16.840.1.898665.3.579.2.7 1959 Unknown [id number] 2.16.840.1.293141.3.579.2.7 1959 Unknown [id number] 2.16.840.1.322940.3.579.2.7 1959 Unknown [id number] 2.16.840.1.595605.3.579.2.7 1959 Unknown [id number] 2.16.840.1.674036.3.579.2.7 1959 Unknown [id number] 2.16.840.1.833411.3.579.2.7 1959 Unknown [id number] 2.16.840.1.761856.3.579.2.7 1959 Unknown [id number] 2.16.840.1.431271.3.579.2.7 1959 Unknown [id number] 2.16.840.1.256533.3.579.2.7 1959 Unknown [id number] 2.16.840.1.313251.3.579.2.7 1959 Unknown [id number] 2.16.840.1.105653.3.579.2.7 1959 Unknown [id number] 2.16.840.1.635153.3.579.2.7 1959 Unknown [id number] 2.16.840.1.019784.3.579.2.7 1959 Unknown [id number] 2.16.840.1.062015.3.579.2.7 1959 Unknown [id number] 2.16.840.1.423706.3.579.2.7 1959 Unknown [id number] 2.16.840.1.452112.3.579.2.7 1959 Unknown [id number] 2.16.840.1.702915.3.579.2.7 1959 Unknown [id number] 2.16.840.1.575767.3.579.2.7 1959 Unknown [id number] 2.16.840.1.010139.3.579.2.7 1959 Unknown [id number] 2.16.840.1.954807.3.579.2.7 1959 Unknown [id number] 2.16.840.1.182038.3.579.2.7 27 1959 Unknown [id number] 2.16.840.1.169872.3.579.2.7 27 1959 Unknown [id number] 2.16.840.1.841417.3.579.2.7 27 1959 Unknown [id number] 2.16.840.1.715568.3.579.2.7 27 1959 Unknown [id number] 2.16.840.1.830745.3.579.2.7 27 1959 Unknown [id number] 2.16.840.1.336214.3.579.2.7 27 1959 Unknown [id number] 2.16.840.1.194077.3.579.2.7 27 1959 Unknown [id number] 2.16.840.1.524946.3.579.2.7 27 1959 Unknown [id number] 2.16.840.1.307209.3.579.2.7 27 1959 Unknown [id number] 2.16.840.1.462236.3.579.2.7 27 1959 Unknown [id number] 2.16.840.1.205716.3.579.2.7 27 1959 Unknown [id number] 2.16.840.1.258892.3.579.2.7 27 1959 Unknown [id number] 2.16.840.1.057660.3.579.2.7 27 1959 Unknown [id number] 2.16.840.1.652549.3.579.2.7 27 1959 Unknown [id number] 2.16.840.1.342003.3.579.2.1 259 1959 Unknown [id number] 2.16.840.1.442572.3.579.2.1 259 1959 Unknown [id number] 2.16.840.1.682162.3.579.2.1 259 1959 Unknown [id number] 2.16.840.1.337254.3.579.2.1 259 1959 Unknown [id number] 2.16.840.1.780943.3.579.2.1 259 1959 Unknown [id number] 2.16.840.1.191614.3.579.2.1 259 1959 Unknown [id number] 2.16.840.1.633026.3.579.2.1 259 1959 Unknown [id number] 2.16.840.1.888017.3.579.2.1 259 1959 Unknown [id number] 2.16.840.1.335752.3.579.2.1 259 1959 Unknown [id number] 2.16.840.1.961056.3.579.2.1 259 1959 Unknown [id number] 2.16.840.1.668678.3.579.2.1 259 1959 Unknown [id number] 2.16.840.1.685337.3.579.2.1 259 1959 Unknown [id number] 2.16.840.1.195398.3.579.2.1 259 1959 Unknown [id number] 2.16.840.1.005601.3.579.2.1 259 1959 Unknown [id number] 2.16.840.1.545077.3.579.2.1 259 Medicare Medicare [id number] Unknown [id number] 2.16.840.1.131699.3.579.2.5 31 Social History Date Type Detail Facility Start: 12-28-2021 End: 06-27-2023 Tobacco smoking status Never smoked tobacco (finding) [facility] Start: 09-06-2023 End: 12-04-2024 Sex Assigned At Male [facility] Start: 1960 Sex Assigned At Male [facility] Start: 06-27-2023 Tobacco use and exposure Smoke less tobacco non-user [facility] Start: 09-06-2023 End: 03-17-2025 Alcohol intake Lifetime non-drinker (finding) [facility] Start: 09-06-2023 End: 12-04-2024 History of Social function [facility] Start: 04-02-2023 Alcohol Comment caffeine 1-2 c ups per day [facility] Start: 1960 Sex Assigned At Not on file [facility] Start: 10-24-2023 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) [facility] Sexual Orientation [facility] Start: 11-09-2018 Sex Male (finding) [facility] Medical Equipment Procedure Code Equipment Code Equipment Origin al Text Equipment Identifier Dates Glucometer test strips, See Instructions, 100 strip(s), 11, Test TID DX E11.40 on insulin, [facility] #[id number], Supply, 182, cm, 10/01/21 10:14:00 EST, Height/Length Dosing, 131.2, kg, 10/01/21 10:14:00 EST, Weight Dosing Start: 10-28-2021 lancets, See Instructions, 100 EA, 11, test blood sugar tid dx E11.9 on insulin, [facility] #[id number], Supply, 182, cm, 10/01/21 10:14:00 EST, Height/Length Dosing, 131.2, kg, 10/01/21 10:14:00 EST, Weight Dosing Start: 10-29-2021 Glucometer test strips, See Instructions, 100 strip(s), 11, Test TID DX E11.40 on insulin, [facility] #[id number], Supply, 182, cm, 10/01/21 10:14:00 EST, Height/Length Dosing, 131.2, kg, 10/01/21 10:14:00 EST, Weight Dosing Start: 10-28-2021 lancets, See Instructions, 100 EA, 11, test blood sugar tid dx E11.9 on insulin, [facility] #[id number], Supply, 182, cm, 10/01/21 10:14:00 EST, Height/Length Dosing, 131.2, kg, 10/01/21 10:14:00 EST, Weight Dosing Start: 10-29-2021 Glucometer test strips, See Instructions, 100 strip(s), 11, Test TID DX E11.40 on insulin, [facility] #[id number], Supply, 182, cm, 10/01/21 10:14:00 EST, Height/Length Dosing, 131.2, kg, 10/01/21 10:14:00 EST, Weight Dosing Start: 10-28-2021 lancets, See Instructions, 100 EA, 11, test blood sugar tid dx E11.9 on insulin, [facility] #[id number], Supply, 182, cm, 10/01/21 10:14:00 EST, Height/Length Dosing, 131.2, kg, 10/01/21 10:14:00 EST, Weight Dosing Start: 10-29-2021 Glucometer test strips, See Instructions, 100 strip(s), 11, Test TID DX E11.40 on insulin, [facility] #[id number], Supply, 182, cm, 10/01/21 10:14:00 EST, Height/Length Dosing, 131.2, kg, 10/01/21 10:14:00 EST, Weight Dosing Start: 10-28-2021 lancets, See Instructions, 100 EA, 11, test blood sugar tid dx E11.9 on insulin, [facility] #[id number], Supply, 182, cm, 10/01/21 10:14:00 EST, Height/Length Dosing, 131.2, kg, 10/01/21 10:14:00 EST, Weight Dosing Start: 10-29-2021 Glucometer test strips, See Instructions, 100 strip(s), 11, Test TID DX E11.40 on insulin, [facility] #[id number], Supply, 182, cm, 10/01/21 10:14:00 EST, Height/Length Dosing, 131.2, kg, 10/01/21 10:14:00 EST, Weight Dosing Start: 10-28-2021 lancets, See Instructions, 100 EA, 11, test blood sugar tid dx E11.9 on insulin, [facility] #[id number], Supply, 182, cm, 10/01/21 10:14:00 EST, Height/Length Dosing, 131.2, kg, 10/01/21 10:14:00 EST, Weight Dosing Start: 10-29-2021 Glucometer test strips, See Instructions, 100 strip(s), 11, Test TID DX E11.40 on insulin, [facility] #[id number], Supply, 182, cm, 10/01/21 10:14:00 EST, Height/Length Dosing, 131.2, kg, 10/01/21 10:14:00 EST, Weight Dosing Start: 10-28-2021 lancets, See Instructions, 100 EA, 11, test blood sugar tid dx E11.9 on insulin, [facility] #[id number], Supply, 182, cm, 10/01/21 10:14:00 EST, Height/Length Dosing, 131.2, kg, 10/01/21 10:14:00 EST, Weight Dosing Start: 10-29-2021 Glucometer test strips, See Instructions, 100 strip(s), 11, Test TID DX E11.40 on insulin, [facility] #[id number], Supply, 182, cm, 09/13/22 13:17:00 EST, Height/Length Dosing, 140.8, kg, 09/13/22 13:17:00 EST, Weight Dosing Start: 09-13-2022 Insulin Pen Need les 31g x 8 mm, See Instructions, 450 EA, 4, Use up to 4 daily, [facility] #[id number], Supply, 182, cm, 09/13/22 13:17:00 EST, Height/Length Dosing, 140.8, kg, 09/13/22 13:17:00 EST, Weight Dosing Start: 09-13-2022 lancets, See Instructions, 100 EA, 11, test blood sugar tid dx E11.9 on insulin, [facility] #[id number], Supply, 182, cm, 10/01/21 10:14:00 EST, Height/Length Dosing, 131.2, kg, 10/01/21 10:14:00 EST, Weight Dosing Start: 10-29-2021 Glucometer test strips, See Instructions, 100 strip(s), 11, Test TID DX E11.40 on insulin, [facility] #[id number], Supply, 182, cm, 09/13/22 13:17:00 EST, Height/Length Dosing, 140.8, kg, 09/13/22 13:17:00 EST, Weight Dosing Start: 09-13-2022 Insulin Pen Need les 31g x 8 mm, See Instructions, 450 EA, 4, Use up to 4 daily, [facility] #[id number], Supply, 182, cm, 09/13/22 13:17:00 EST, Height/Length Dosing, 140.8, kg, 09/13/22 13:17:00 EST, Weight Dosing Start: 09-13-2022 lancets, See Instructions, 100 EA, 11, test blood sugar tid dx E11.9 on insulin, [facility] #[id number], Supply, 182, cm, 10/01/21 10:14:00 EST, Height/Length Dosing, 131.2, kg, 10/01/21 10:14:00 EST, Weight Dosing Start: 10-29-2021 Glucometer test strips, See Instructions, 100 strip(s), 11, Test TID DX E11.40 on insulin, [facility] #[id number], Supply, 182, cm, 09/13/22 13:17:00 EST, Height/Length Dosing, 140.8, kg, 09/13/22 13:17:00 EST, Weight Dosing Start: 09-13-2022 Insulin Pen Need les 31g x 8 mm, See Instructions, 450 EA, 4, Use up to 4 daily, [facility] #[id number], Supply, 182, cm, 09/13/22 13:17:00 EST, Height/Length Dosing, 140.8, kg, 09/13/22 13:17:00 EST, Weight Dosing Start: 09-13-2022 lancets, See Instructions, 100 EA, 11, test blood sugar tid dx E11.9 on insulin, [facility] #[id number], Supply, 182, cm, 10/01/21 10:14:00 EST, Height/Length Dosing, 131.2, kg, 10/01/21 10:14:00 EST, Weight Dosing Start: 10-29-2021 Glucometer test strips, See Instructions, 100 strip(s), 11, Test TID DX E11.40 on insulin, [facility] #[id number], Supply, 182, cm, 09/13/22 13:17:00 EST, Height/Length Dosing, 140.8, kg, 09/13/22 13:17:00 EST, Weight Dosing Start: 11-03-2022 Insulin Pen Need les 31g x 8 mm, See Instructions, 450 EA, 4, Use up to 4 daily, [facility] #[id number], Supply, 182, cm, 09/13/22 13:17:00 EST, Height/Length Dosing, 140.8, kg, 09/13/22 13:17:00 EST, Weight Dosing Start: 09-13-2022 lancets, See Instructions, 100 EA, 11, test blood sugar tid dx E11.9 on insulin, [facility] #[id number], Supply, 182, cm, 09/13/22 13:17:00 EST, Height/Length Dosing, 140.8, kg, 09/13/22 13:17:00 EST, Weight Dosing Start: 11-03-2022 Glucometer test strips, See Instructions, 100 strip(s), 11, Test TID DX E11.40 on insulin, [facility] #[id number], Supply, 182, cm, 09/13/22 13:17:00 EST, Height/Length Dosing, 140.8, kg, 09/13/22 13:17:00 EST, Weight Dosing Start: 11-03-2022 Insulin Pen Need les 31g x 8 mm, See Instructions, 450 EA, 4, Use up to 4 daily, [facility] #[id number], Supply, 182, cm, 09/13/22 13:17:00 EST, Height/Length Dosing, 140.8, kg, 09/13/22 13:17:00 EST, Weight Dosing Start: 09-13-2022 lancets, See Instructions, 100 EA, 11, test blood sugar tid dx E11.9 on insulin, [facility] #[id number], Supply, 182, cm, 09/13/22 13:17:00 EST, Height/Length Dosing, 140.8, kg, 09/13/22 13:17:00 EST, Weight Dosing Start: 11-03-2022 Glucometer test strips, See Instructions, 100 strip(s), 11, Test TID DX E11.40 on insulin, [facility] #[id number], Supply, 182, cm, 09/13/22 13:17:00 EST, Height/Length Dosing, 140.8, kg, 09/13/22 13:17:00 EST, Weight Dosing Start: 11-03-2022 Insulin Pen Need les 31g x 8 mm, See Instructions, 450 EA, 4, Use up to 4 daily, [facility] #[id number], Supply, 182, cm, 09/13/22 13:17:00 EST, Height/Length Dosing, 140.8, kg, 09/13/22 13:17:00 EST, Weight Dosing Start: 09-13-2022 lancets, See Instructions, 100 EA, 11, test blood sugar tid dx E11.9 on insulin, [facility] #[id number], Supply, 182, cm, 09/13/22 13:17:00 EST, Height/Length Dosing, 140.8, kg, 09/13/22 13:17:00 EST, Weight Dosing Start: 11-03-2022 Glucometer test strips, See Instructions, 100 strip(s), 11, Test TID DX E11.40 on insulin, [facility] #[id number], Supply, 182, cm, 09/13/22 13:17:00 EST, Height/Length Dosing, 140.8, kg, 09/13/22 13:17:00 EST, Weight Dosing Start: 11-03-2022 Insulin Pen Need les 31g x 8 mm, See Instructions, 450 EA, 4, Use up to 4 daily, [facility] #[id number], Supply, 182, cm, 09/13/22 13:17:00 EST, Height/Length Dosing, 140.8, kg, 09/13/22 13:17:00 EST, Weight Dosing Start: 09-13-2022 lancets, See Instructions, 100 EA, 11, test blood sugar tid dx E11.9 on insulin, [facility] #[id number], Supply, 182, cm, 09/13/22 13:17:00 EST, Height/Length Dosing, 140.8, kg, 09/13/22 13:17:00 EST, Weight Dosing Start: 11-03-2022 Glucometer test strips, See Instructions, 100 strip(s), 11, Test TID DX E11.40 on insulin, [facility] #[id number], Supply, 182, cm, 09/13/22 13:17:00 EST, Height/Length Dosing, 140.8, kg, 09/13/22 13:17:00 EST, Weight Dosing Start: 11-03-2022 Insulin Pen Need les 31g x 8 mm, See Instructions, 450 EA, 4, Use up to 4 daily, [facility] #[id number], Supply, 182, cm, 09/13/22 13:17:00 EST, Height/Length Dosing, 140.8, kg, 09/13/22 13:17:00 EST, Weight Dosing Start: 09-13-2022 lancets, See Instructions, 100 EA, 11, test blood sugar tid dx E11.9 on insulin, [facility] #[id number], Supply, 182, cm, 09/13/22 13:17:00 EST, Height/Length Dosing, 140.8, kg, 09/13/22 13:17:00 EST, Weight Dosing Start: 11-03-2022 Glucometer test strips, See Instructions, 100 strip(s), 11, Test TID DX E11.40 on insulin, [facility] #[id number], Supply, 182, cm, 09/13/22 13:17:00 EST, Height/Length Dosing, 140.8, kg, 09/13/22 13:17:00 EST, Weight Dosing Start: 11-03-2022 Insulin Pen Need les 31g x 8 mm, See Instructions, 450 EA, 4, Use up to 4 daily, [facility] #[id number], Supply, 182, cm, 09/13/22 13:17:00 EST, Height/Length Dosing, 140.8, kg, 09/13/22 13:17:00 EST, Weight Dosing Start: 09-13-2022 lancets, See Instructions, 100 EA, 11, test blood sugar tid dx E11.9 on insulin, [facility] #[id number], Supply, 182, cm, 09/13/22 13:17:00 EST, Height/Length Dosing, 140.8, kg, 09/13/22 13:17:00 EST, Weight Dosing Start: 11-03-2022 Glucometer test strips, See Instructions, 100 strip(s), 11, Test TID DX E11.40 on insulin, [facility] #[id number], Supply, 182, cm, 09/13/22 13:17:00 EST, Height/Length Dosing, 140.8, kg, 09/13/22 13:17:00 EST, Weight Dosing Start: 11-03-2022 Insulin Pen Need les 31g x 8 mm, See Instructions, 450 EA, 4, Use up to 4 daily, [facility] #[id number], Supply, 182, cm, 09/13/22 13:17:00 EST, Height/Length Dosing, 140.8, kg, 09/13/22 13:17:00 EST, Weight Dosing Start: 09-13-2022 lancets, See Instructions, 100 EA, 11, test blood sugar tid dx E11.9 on insulin, [facility] #[id number], Supply, 182, cm, 09/13/22 13:17:00 EST, Height/Length Dosing, 140.8, kg, 09/13/22 13:17:00 EST, Weight Dosing Start: 11-03-2022 Glucometer test strips, See Instructions, 100 strip(s), 11, Test TID DX E11.40 on insulin, [facility] #[id number], Supply, 182, cm, 09/13/22 13:17:00 EST, Height/Length Dosing, 140.8, kg, 09/13/22 13:17:00 EST, Weight Dosing Start: 11-03-2022 Insulin Pen Need les 31g x 8 mm, See Instructions, 450 EA, 4, Use up to 4 daily, [facility] #[id number], Supply, 182, cm, 09/13/22 13:17:00 EST, Height/Length Dosing, 140.8, kg, 09/13/22 13:17:00 EST, Weight Dosing Start: 09-13-2022 lancets, See Instructions, 100 EA, 11, test blood sugar tid dx E11.9 on insulin, [facility] #[id number], Supply, 182, cm, 09/13/22 13:17:00 EST, Height/Length Dosing, 140.8, kg, 09/13/22 13:17:00 EST, Weight Dosing Start: 11-03-2022 Glucometer test strips, See Instructions, 100 strip(s), 11, Test TID DX E11.40 on insulin, [facility] #[id number], Supply, 182, cm, 09/13/22 13:17:00 EST, Height/Length Dosing, 140.8, kg, 09/13/22 13:17:00 EST, Weight Dosing Start: 11-03-2022 Insulin Pen Need les 31g x 8 mm, See Instructions, 450 EA, 4, Use up to 4 daily, [facility] #[id number], Supply, 182, cm, 09/13/22 13:17:00 EST, Height/Length Dosing, 140.8, kg, 09/13/22 13:17:00 EST, Weight Dosing Start: 09-13-2022 lancets, See Instructions, 100 EA, 11, test blood sugar tid dx E11.9 on insulin, [facility] #[id number], Supply, 182, cm, 09/13/22 13:17:00 EST, Height/Length Dosing, 140.8, kg, 09/13/22 13:17:00 EST, Weight Dosing Start: 11-03-2022 Glucometer test strips, See Instructions, 100 strip(s), 11, Test TID DX E11.40 on insulin, [facility] #[id number], Supply, 182, cm, 09/13/22 13:17:00 EST, Height/Length Dosing, 140.8, kg, 09/13/22 13:17:00 EST, Weight Dosing Start: 11-03-2022 Insulin Pen Need les 31g x 8 mm, See Instructions, 450 EA, 4, Use up to 4 daily, [facility] #[id number], Supply, 182, cm, 05/22/23 13:30:00 EDT, Height/Length Dosing, 139.6, kg, 05/22/23 13:30:00 EDT, Weight Dosing Start: 05-22-2023 lancets, See Instructions, 100 EA, 11, test blood sugar tid dx E11.9 on insulin, [facility] #[id number], Supply, 182, cm, 09/13/22 13:17:00 EST, Height/Length Dosing, 140.8, kg, 09/13/22 13:17:00 EST, Weight Dosing Start: 11-03-2022 Glucometer test strips, See Instructions, 100 strip(s), 11, Test TID DX E11.40 on insulin, [facility] #[id number], Supply, 182, cm, 09/13/22 13:17:00 EST, Height/Length Dosing, 140.8, kg, 09/13/22 13:17:00 EST, Weight Dosing Start: 11-03-2022 Insulin Pen Need les 31g x 8 mm, See Instructions, 450 EA, 4, Use up to 4 daily, [facility] #[id number], Supply, 182, cm, 05/22/23 13:30:00 EDT, Height/Length Dosing, 139.6, kg, 05/22/23 13:30:00 EDT, Weight Dosing Start: 05-22-2023 lancets, See Instructions, 100 EA, 11, test blood sugar tid dx E11.9 on insulin, [facility] #[id number], Supply, 182, cm, 09/13/22 13:17:00 EST, Height/Length Dosing, 140.8, kg, 09/13/22 13:17:00 EST, Weight Dosing Start: 11-03-2022 Glucometer test strips, See Instructions, 100 strip(s), 11, Test TID DX E11.40 on insulin, [facility] #[id number], Supply, 182, cm, 09/13/22 13:17:00 EST, Height/Length Dosing, 140.8, kg, 09/13/22 13:17:00 EST, Weight Dosing Start: 11-03-2022 Insulin Pen Need les 31g x 8 mm, See Instructions, 450 EA, 4, Use up to 4 daily, [facility] #[id number], Supply, 182, cm, 05/22/23 13:30:00 EDT, Height/Length Dosing, 139.6, kg, 05/22/23 13:30:00 EDT, Weight Dosing Start: 05-22-2023 lancets, See Instructions, 100 EA, 11, test blood sugar tid dx E11.9 on insulin, [facility] #[id number], Supply, 182, cm, 09/13/22 13:17:00 EST, Height/Length Dosing, 140.8, kg, 09/13/22 13:17:00 EST, Weight Dosing Start: 11-03-2022 Glucometer test strips, See Instructions, 100 strip(s), 11, Test TID DX E11.40 on insulin, [facility] #[id number], Supply, 182, cm, 09/13/22 13:17:00 EST, Height/Length Dosing, 140.8, kg, 09/13/22 13:17:00 EST, Weight Dosing Start: 11-03-2022 Insulin Pen Need les 31g x 8 mm, See Instructions, 450 EA, 4, Use up to 4 daily, [facility] #[id number], Supply, 182, cm, 05/22/23 13:30:00 EDT, Height/Length Dosing, 139.6, kg, 05/22/23 13:30:00 EDT, Weight Dosing Start: 05-22-2023 lancets, See Instructions, 100 EA, 11, test blood sugar tid dx E11.9 on insulin, [facility] #[id number], Supply, 182, cm, 09/13/22 13:17:00 EST, Height/Length Dosing, 140.8, kg, 09/13/22 13:17:00 EST, Weight Dosing Start: 11-03-2022 Glucometer test strips, See Instructions, 100 strip(s), 11, Test TID DX E11.40 on insulin, [facility] #[id number], Supply, 182, cm, 09/13/22 13:17:00 EST, Height/Length Dosing, 140.8, kg, 09/13/22 13:17:00 EST, Weight Dosing Start: 11-03-2022 Insulin Pen Need les 31g x 8 mm, See Instructions, 450 EA, 4, Use up to 4 daily, [facility] #[id number], Supply, 182, cm, 05/22/23 13:30:00 EDT, Height/Length Dosing, 139.6, kg, 05/22/23 13:30:00 EDT, Weight Dosing Start: 05-22-2023 lancets, See Instructions, 100 EA, 11, test blood sugar tid dx E11.9 on insulin, [facility] #[id number], Supply, 182, cm, 09/13/22 13:17:00 EST, Height/Length Dosing, 140.8, kg, 09/13/22 13:17:00 EST, Weight Dosing Start: 11-03-2022 Glucometer test strips, See Instructions, 100 strip(s), 11, Test TID DX E11.40 on insulin, [facility] #[id number], Supply, 182, cm, 09/13/22 13:17:00 EST, Height/Length Dosing, 140.8, kg, 09/13/22 13:17:00 EST, Weight Dosing Start: 11-03-2022 Insulin Pen Need les 31g x 8 mm, See Instructions, 450 EA, 4, Use up to 4 daily, [facility] #[id number], Supply, 182, cm, 05/22/23 13:30:00 EDT, Height/Length Dosing, 139.6, kg, 05/22/23 13:30:00 EDT, Weight Dosing Start: 05-22-2023 lancets, See Instructions, 100 EA, 11, test blood sugar tid dx E11.9 on insulin, [facility] #[id number], Supply, 182, cm, 09/13/22 13:17:00 EST, Height/Length Dosing, 140.8, kg, 09/13/22 13:17:00 EST, Weight Dosing Start: 11-03-2022 Glucometer test strips, See Instructions, 100 strip(s), 11, Test TID DX E11.40 on insulin, [facility] #[id number], Supply, 182, cm, 09/13/22 13:17:00 EST, Height/Length Dosing, 140.8, kg, 09/13/22 13:17:00 EST, Weight Dosing Start: 11-03-2022 Insulin Pen Need les 31g x 8 mm, See Instructions, 450 EA, 4, Use up to 4 daily, [facility] #[id number], Supply, 182, cm, 05/22/23 13:30:00 EDT, Height/Length Dosing, 139.6, kg, 05/22/23 13:30:00 EDT, Weight Dosing Start: 05-22-2023 lancets, See Instructions, 100 EA, 11, test blood sugar tid dx E11.9 on insulin, [facility] #[id number], Supply, 182, cm, 09/13/22 13:17:00 EST, Height/Length Dosing, 140.8, kg, 09/13/22 13:17:00 EST, Weight Dosing Start: 11-03-2022 Glucometer test strips, See Instructions, 100 strip(s), 11, Test TID DX E11.40 on insulin, [facility] #[id number], Supply, 182, cm, 09/13/22 13:17:00 EST, Height/Length Dosing, 140.8, kg, 09/13/22 13:17:00 EST, Weight Dosing Start: 11-03-2022 Insulin Pen Need les 31g x 8 mm, See Instructions, 450 EA, 4, Use up to 4 daily, [facility] #[id number], Supply, 182, cm, 05/22/23 13:30:00 EDT, Height/Length Dosing, 139.6, kg, 05/22/23 13:30:00 EDT, Weight Dosing Start: 05-22-2023 lancets, See Instructions, 100 EA, 11, test blood sugar tid dx E11.9 on insulin, [facility] #[id number], Supply, 182, cm, 09/13/22 13:17:00 EST, Height/Length Dosing, 140.8, kg, 09/13/22 13:17:00 EST, Weight Dosing Start: 11-03-2022 Glucometer test strips, See Instructions, 100 strip(s), 11, Test TID DX E11.40 on insulin, [facility] #[id number], Supply, 182, cm, 09/13/22 13:17:00 EST, Height/Length Dosing, 140.8, kg, 09/13/22 13:17:00 EST, Weight Dosing Start: 11-03-2022 Insulin Pen Need les 31g x 8 mm, See Instructions, 450 EA, 4, Use up to 4 daily, [facility] #[id number], Supply, 182, cm, 05/22/23 13:30:00 EDT, Height/Length Dosing, 139.6, kg, 05/22/23 13:30:00 EDT, Weight Dosing Start: 05-22-2023 lancets, See Instructions, 100 EA, 11, test blood sugar tid dx E11.9 on insulin, [facility] #[id number], Supply, 182, cm, 09/13/22 13:17:00 EST, Height/Length Dosing, 140.8, kg, 09/13/22 13:17:00 EST, Weight Dosing Start: 11-03-2022 Glucometer test strips, See Instructions, 100 strip(s), 11, Test TID DX E11.40 on insulin, [facility] #[id number], Supply, 182, cm, 09/13/22 13:17:00 EST, Height/Length Dosing, 140.8, kg, 09/13/22 13:17:00 EST, Weight Dosing Start: 11-03-2022 Insulin Pen Need les 31g x 8 mm, See Instructions, 450 EA, 4, Use up to 4 daily, [facility] #[id number], Supply, 182, cm, 05/22/23 13:30:00 EDT, Height/Length Dosing, 139.6, kg, 05/22/23 13:30:00 EDT, Weight Dosing Start: 05-22-2023 lancets, See Instructions, 100 EA, 11, test blood sugar tid dx E11.9 on insulin, [facility] #[id number], Supply, 182, cm, 09/13/22 13:17:00 EST, Height/Length Dosing, 140.8, kg, 09/13/22 13:17:00 EST, Weight Dosing Start: 11-03-2022 Glucometer test strips, See Instructions, 100 strip(s), 11, Test TID DX E11.40 on insulin, [facility] #[id number], Supply, 182, cm, 09/13/22 13:17:00 EST, Height/Length Dosing, 140.8, kg, 09/13/22 13:17:00 EST, Weight Dosing Start: 11-03-2022 Insulin Pen Need les 31g x 8 mm, See Instructions, 450 EA, 4, Use up to 4 daily, [facility] #[id number], Supply, 182, cm, 05/22/23 13:30:00 EDT, Height/Length Dosing, 139.6, kg, 05/22/23 13:30:00 EDT, Weight Dosing Start: 05-22-2023 lancets, See Instructions, 100 EA, 11, test blood sugar tid dx E11.9 on insulin, [facility] #[id number], Supply, 182, cm, 09/13/22 13:17:00 EST, Height/Length Dosing, 140.8, kg, 09/13/22 13:17:00 EST, Weight Dosing Start: 11-03-2022 Glucometer test strips, See Instructions, 100 strip(s), 11, Test TID DX E11.40 on insulin, [facility] #[id number], Supply, 182, cm, 09/13/22 13:17:00 EST, Height/Length Dosing, 140.8, kg, 09/13/22 13:17:00 EST, Weight Dosing Start: 11-03-2022 Insulin Pen Need les 31g x 8 mm, See Instructions, 450 EA, 4, Use up to 4 daily, [facility] #[id number], Supply, 182, cm, 05/22/23 13:30:00 EDT, Height/Length Dosing, 139.6, kg, 05/22/23 13:30:00 EDT, Weight Dosing Start: 05-22-2023 lancets, See Instructions, 100 EA, 11, test blood sugar tid dx E11.9 on insulin, [facility] #[id number], Supply, 182, cm, 09/13/22 13:17:00 EST, Height/Length Dosing, 140.8, kg, 09/13/22 13:17:00 EST, Weight Dosing Start: 11-03-2022 Glucometer test strips, See Instructions, 100 strip(s), 11, Test TID DX E11.40 on insulin, [facility] #[id number], Supply, 182, cm, 09/13/22 13:17:00 EST, Height/Length Dosing, 140.8, kg, 09/13/22 13:17:00 EST, Weight Dosing Start: 11-03-2022 Insulin Pen Need les 31g x 8 mm, See Instructions, 450 EA, 4, Use up to 4 daily, [facility] #[id number], Supply, 182, cm, 05/22/23 13:30:00 EDT, Height/Length Dosing, 139.6, kg, 05/22/23 13:30:00 EDT, Weight Dosing Start: 05-22-2023 lancets, See Instructions, 100 EA, 11, test blood sugar tid dx E11.9 on insulin, [facility] #[id number], Supply, 182, cm, 09/13/22 13:17:00 EST, Height/Length Dosing, 140.8, kg, 09/13/22 13:17:00 EST, Weight Dosing Start: 11-03-2022 Glucometer test strips, See Instructions, 100 strip(s), 11, Test TID DX E11.40 on insulin, [facility] #[id number], Supply, 182, cm, 09/13/22 13:17:00 EST, Height/Length Dosing, 140.8, kg, 09/13/22 13:17:00 EST, Weight Dosing Start: 11-03-2022 Insulin Pen Need les 31g x 8 mm, See Instructions, 450 EA, 4, Use up to 4 daily, [facility] #[id number], Supply, 182, cm, 05/22/23 13:30:00 EDT, Height/Length Dosing, 139.6, kg, 05/22/23 13:30:00 EDT, Weight Dosing Start: 05-22-2023 lancets, See Instructions, 100 EA, 11, test blood sugar tid dx E11.9 on insulin, [facility] #[id number], Supply, 182, cm, 09/13/22 13:17:00 EST, Height/Length Dosing, 140.8, kg, 09/13/22 13:17:00 EST, Weight Dosing Start: 11-03-2022 Glucometer test strips, See Instructions, 100 strip(s), 11, Test TID DX E11.40 on insulin, [facility] #[id number], Supply, 182, cm, 09/13/22 13:17:00 EST, Height/Length Dosing, 140.8, kg, 09/13/22 13:17:00 EST, Weight Dosing Start: 11-03-2022 Insulin Pen Need les 31g x 8 mm, See Instructions, 450 EA, 4, Use up to 4 daily, [facility] #[id number], Supply, 182, cm, 05/22/23 13:30:00 EDT, Height/Length Dosing, 139.6, kg, 05/22/23 13:30:00 EDT, Weight Dosing Start: 05-22-2023 lancets, See Instructions, 100 EA, 11, test blood sugar tid dx E11.9 on insulin, [facility] #[id number], Supply, 182, cm, 09/13/22 13:17:00 EST, Height/Length Dosing, 140.8, kg, 09/13/22 13:17:00 EST, Weight Dosing Start: 11-03-2022 Glucometer test strips, See Instructions, 100 strip(s), 11, Test TID DX E11.40 on insulin, [facility] #[id number], Supply, 180, cm, 09/12/23 13:35:00 EST, Height/Length Dosing, 149.8, kg, 09/12/23 13:35:00 EST, Weight Dosing Start: 09-16-2023 Insulin Pen Need les 31g x 8 mm, See Instructions, 450 EA, 4, Use up to 4 daily, [facility] #[id number], Supply, 180, cm, 09/12/23 13:35:00 EST, Height/Length Dosing, 149.8, kg, 09/12/23 13:35:00 EST, Weight Dosing Start: 09-16-2023 lancets, See Instructions, 100 EA, 11, test blood sugar tid dx E11.9 on insulin, [facility] #[id number], Supply, 180, cm, 09/12/23 13:35:00 EST, Height/Length Dosing, 149.8, kg, 09/12/23 13:35:00 EST, Weight Dosing Start: 09-16-2023 Glucometer test strips, See Instructions, 100 strip(s), 11, Test TID DX E11.40 on insulin, [facility] #[id number], Supply, 180, cm, 09/12/23 13:35:00 EST, Height/Length Dosing, 149.8, kg, 09/12/23 13:35:00 EST, Weight Dosing Start: 09-16-2023 Insulin Pen Need les 31g x 8 mm, See Instructions, 450 EA, 4, Use up to 4 daily, [facility] #[id number], Supply, 180, cm, 09/12/23 13:35:00 EST, Height/Length Dosing, 149.8, kg, 09/12/23 13:35:00 EST, Weight Dosing Start: 09-16-2023 lancets, See Instructions, 100 EA, 11, test blood sugar tid dx E11.9 on insulin, [facility] #[id number], Supply, 180, cm, 09/12/23 13:35:00 EST, Height/Length Dosing, 149.8, kg, 09/12/23 13:35:00 EST, Weight Dosing Start: 09-16-2023 Glucometer test strips, See Instructions, 100 strip(s), 11, Test TID DX E11.40 on insulin, [facility] #[id number], Supply, 180, cm, 09/12/23 13:35:00 EST, Height/Length Dosing, 149.8, kg, 09/12/23 13:35:00 EST, Weight Dosing Start: 09-16-2023 Insulin Pen Need les 31g x 8 mm, See Instructions, 450 EA, 4, Use up to 4 daily, [facility] #[id number], Supply, 180, cm, 09/12/23 13:35:00 EST, Height/Length Dosing, 149.8, kg, 09/12/23 13:35:00 EST, Weight Dosing Start: 09-16-2023 lancets, See Instructions, 100 EA, 11, test blood sugar tid dx E11.9 on insulin, [facility] #[id number], Supply, 180, cm, 09/12/23 13:35:00 EST, Height/Length Dosing, 149.8, kg, 09/12/23 13:35:00 EST, Weight Dosing Start: 09-16-2023 Glucometer test strips, See Instructions, 100 strip(s), 11, Test TID DX E11.40 on insulin, [facility] #[id number], Supply, 180, cm, 09/12/23 13:35:00 EST, Height/Length Dosing, 149.8, kg, 09/12/23 13:35:00 EST, Weight Dosing Start: 09-16-2023 Insulin Pen Need les 31g x 8 mm, See Instructions, 450 EA, 4, Use up to 4 daily, [facility] #[id number], Supply, 180, cm, 09/12/23 13:35:00 EST, Height/Length Dosing, 149.8, kg, 09/12/23 13:35:00 EST, Weight Dosing Start: 09-16-2023 lancets, See Instructions, 100 EA, 11, test blood sugar tid dx E11.9 on insulin, [facility] #[id number], Supply, 180, cm, 09/12/23 13:35:00 EST, Height/Length Dosing, 149.8, kg, 09/12/23 13:35:00 EST, Weight Dosing Start: 09-16-2023 Glucometer test strips, See Instructions, 100 strip(s), 11, Test TID DX E11.40 on insulin, [facility] #[id number], Supply, 180, cm, 09/12/23 13:35:00 EST, Height/Length Dosing, 149.8, kg, 09/12/23 13:35:00 EST, Weight Dosing Start: 09-16-2023 Insulin Pen Need les 31g x 8 mm, See Instructions, 450 EA, 4, Use up to 4 daily, [facility] #[id number], Supply, 180, cm, 09/12/23 13:35:00 EST, Height/Length Dosing, 149.8, kg, 09/12/23 13:35:00 EST, Weight Dosing Start: 09-16-2023 lancets, See Instructions, 100 EA, 11, test blood sugar tid dx E11.9 on insulin, [facility] #[id number], Supply, 180, cm, 09/12/23 13:35:00 EST, Height/Length Dosing, 149.8, kg, 09/12/23 13:35:00 EST, Weight Dosing Start: 09-16-2023 Glucometer test strips, See Instructions, 100 strip(s), 11, Test TID DX E11.40 on insulin, [facility] #[id number], Supply, 180, cm, 09/12/23 13:35:00 EST, Height/Length Dosing, 149.8, kg, 09/12/23 13:35:00 EST, Weight Dosing Start: 09-16-2023 Insulin Pen Need les 31g x 8 mm, See Instructions, 450 EA, 4, Use up to 4 daily, [facility] #[id number], Supply, 180, cm, 09/12/23 13:35:00 EST, Height/Length Dosing, 149.8, kg, 09/12/23 13:35:00 EST, Weight Dosing Start: 09-16-2023 lancets, See Instructions, 100 EA, 11, test blood sugar tid dx E11.9 on insulin, [facility] #[id number], Supply, 180, cm, 09/12/23 13:35:00 EST, Height/Length Dosing, 149.8, kg, 09/12/23 13:35:00 EST, Weight Dosing Start: 09-16-2023 Glucometer test strips, See Instructions, 100 strip(s), 11, Test TID DX E11.40 on insulin, [facility] #[id number], Supply, 180, cm, 09/12/23 13:35:00 EST, Height/Length Dosing, 149.8, kg, 09/12/23 13:35:00 EST, Weight Dosing Start: 09-16-2023 Insulin Pen Need les 31g x 8 mm, See Instructions, 450 EA, 4, Use up to 4 daily, [facility] #[id number], Supply, 180, cm, 09/12/23 13:35:00 EST, Height/Length Dosing, 149.8, kg, 09/12/23 13:35:00 EST, Weight Dosing Start: 09-16-2023 lancets, See Instructions, 100 EA, 11, test blood sugar tid dx E11.9 on insulin, [facility] #[id number], Supply, 180, cm, 09/12/23 13:35:00 EST, Height/Length Dosing, 149.8, kg, 09/12/23 13:35:00 EST, Weight Dosing Start: 09-16-2023 Glucometer test strips, See Instructions, 100 strip(s), 11, Test TID DX E11.40 on insulin, [facility] #[id number], Supply, 180, cm, 09/12/23 13:35:00 EST, Height/Length Dosing, 149.8, kg, 09/12/23 13:35:00 EST, Weight Dosing Start: 09-16-2023 Insulin Pen Need les 31g x 8 mm, See Instructions, 450 EA, 4, Use up to 4 daily, [facility] #[id number], Supply, 180, cm, 09/12/23 13:35:00 EST, Height/Length Dosing, 149.8, kg, 09/12/23 13:35:00 EST, Weight Dosing Start: 09-16-2023 lancets, See Instructions, 100 EA, 11, test blood sugar tid dx E11.9 on insulin, [facility] #[id number], Supply, 180, cm, 09/12/23 13:35:00 EST, Height/Length Dosing, 149.8, kg, 09/12/23 13:35:00 EST, Weight Dosing Start: 09-16-2023 Glucometer test strips, See Instructions, 100 strip(s), 11, Test TID DX E11.40 on insulin, [facility] #[id number], Supply, 180, cm, 09/12/23 13:35:00 EST, Height/Length Dosing, 149.8, kg, 09/12/23 13:35:00 EST, Weight Dosing Start: 09-16-2023 Insulin Pen Need les 31g x 8 mm, See Instructions, 450 EA, 4, Use up to 4 daily, [facility] #[id number], Supply, 180, cm, 09/12/23 13:35:00 EST, Height/Length Dosing, 149.8, kg, 09/12/23 13:35:00 EST, Weight Dosing Start: 09-16-2023 lancets, See Instructions, 100 EA, 11, test blood sugar tid dx E11.9 on insulin, [facility] #[id number], Supply, 180, cm, 09/12/23 13:35:00 EST, Height/Length Dosing, 149.8, kg, 09/12/23 13:35:00 EST, Weight Dosing Start: 09-16-2023 Glucometer test strips, See Instructions, 100 strip(s), 11, Test TID DX E11.40 on insulin, [facility] #[id number], Supply, 180, cm, 09/12/23 13:35:00 EST, Height/Length Dosing, 149.8, kg, 09/12/23 13:35:00 EST, Weight Dosing Start: 09-16-2023 Insulin Pen Need les 31g x 8 mm, See Instructions, 450 EA, 4, Use up to 4 daily, [facility] #[id number], Supply, 180, cm, 09/12/23 13:35:00 EST, Height/Length Dosing, 149.8, kg, 09/12/23 13:35:00 EST, Weight Dosing Start: 09-16-2023 lancets, See Instructions, 100 EA, 11, test blood sugar tid dx E11.9 on insulin, [facility] #[id number], Supply, 180, cm, 09/12/23 13:35:00 EST, Height/Length Dosing, 149.8, kg, 09/12/23 13:35:00 EST, Weight Dosing Start: 09-16-2023 Glucometer test strips, See Instructions, 100 strip(s), 11, Test TID DX E11.40 on insulin, [facility] #[id number], Supply, 180, cm, 09/12/23 13:35:00 EST, Height/Length Dosing, 149.8, kg, 09/12/23 13:35:00 EST, Weight Dosing Start: 09-16-2023 Insulin Pen Need les 31g x 8 mm, See Instructions, 450 EA, 4, Use up to 4 daily, [facility] #[id number], Supply, 180, cm, 09/12/23 13:35:00 EST, Height/Length Dosing, 149.8, kg, 09/12/23 13:35:00 EST, Weight Dosing Start: 09-16-2023 lancets, See Instructions, 100 EA, 11, test blood sugar tid dx E11.9 on insulin, [facility] #[id number], Supply, 180, cm, 09/12/23 13:35:00 EST, Height/Length Dosing, 149.8, kg, 09/12/23 13:35:00 EST, Weight Dosing Start: 09-16-2023 Glucometer test strips, See Instructions, 100 strip(s), 11, Test TID DX E11.40 on insulin, [facility] #[id number], Supply, 180, cm, 09/12/23 13:35:00 EST, Height/Length Dosing, 149.8, kg, 09/12/23 13:35:00 EST, Weight Dosing Start: 09-16-2023 Insulin Pen Need les 31g x 8 mm, See Instructions, 450 EA, 4, Use up to 4 daily, [facility] #[id number], Supply, 180, cm, 09/12/23 13:35:00 EST, Height/Length Dosing, 149.8, kg, 09/12/23 13:35:00 EST, Weight Dosing Start: 09-16-2023 lancets, See Instructions, 100 EA, 11, test blood sugar tid dx E11.9 on insulin, [facility] #[id number], Supply, 180, cm, 09/12/23 13:35:00 EST, Height/Length Dosing, 149.8, kg, 09/12/23 13:35:00 EST, Weight Dosing Start: 09-16-2023 Glucometer test strips, See Instructions, 100 strip(s), 11, Test TID DX E11.40 on insulin, [facility] #[id number], Supply, 180, cm, 09/12/23 13:35:00 EST, Height/Length Dosing, 149.8, kg, 09/12/23 13:35:00 EST, Weight Dosing Start: 09-16-2023 Insulin Pen Need les 31g x 8 mm, See Instructions, 450 EA, 4, Use up to 4 daily, [facility] #[id number], Supply, 180, cm, 09/12/23 13:35:00 EST, Height/Length Dosing, 149.8, kg, 09/12/23 13:35:00 EST, Weight Dosing Start: 09-16-2023 lancets, See Instructions, 100 EA, 11, test blood sugar tid dx E11.9 on insulin, [facility] #[id number], Supply, 180, cm, 09/12/23 13:35:00 EST, Height/Length Dosing, 149.8, kg, 09/12/23 13:35:00 EST, Weight Dosing Start: 09-16-2023 Glucometer test strips, See Instructions, 100 strip(s), 11, Test TID DX E11.40 on insulin, [facility] #[id number], Supply, 180, cm, 09/12/23 13:35:00 EST, Height/Length Dosing, 149.8, kg, 09/12/23 13:35:00 EST, Weight Dosing Start: 09-16-2023 Insulin Pen Need les 31g x 8 mm, See Instructions, 450 EA, 4, Use up to 4 daily, [facility] #[id number], Supply, 180, cm, 09/12/23 13:35:00 EST, Height/Length Dosing, 149.8, kg, 09/12/23 13:35:00 EST, Weight Dosing Start: 09-16-2023 lancets, See Instructions, 100 EA, 11, test blood sugar tid dx E11.9 on insulin, [facility] #[id number], Supply, 180, cm, 09/12/23 13:35:00 EST, Height/Length Dosing, 149.8, kg, 09/12/23 13:35:00 EST, Weight Dosing Start: 09-16-2023 Glucometer test strips, See Instructions, 100 strip(s), 11, Test TID DX E11.40 on insulin, [facility] #[id number], Supply, 180, cm, 09/12/23 13:35:00 EST, Height/Length Dosing, 149.8, kg, 09/12/23 13:35:00 EST, Weight Dosing Start: 09-16-2023 Insulin Pen Need les 31g x 8 mm, See Instructions, 450 EA, 4, Use up to 4 daily, [facility] #[id number], Supply, 180, cm, 09/12/23 13:35:00 EST, Height/Length Dosing, 149.8, kg, 09/12/23 13:35:00 EST, Weight Dosing Start: 09-16-2023 lancets, See Instructions, 100 EA, 11, test blood sugar tid dx E11.9 on insulin, [facility] #[id number], Supply, 180, cm, 09/12/23 13:35:00 EST, Height/Length Dosing, 149.8, kg, 09/12/23 13:35:00 EST, Weight Dosing Start: 09-16-2023 Glucometer test strips, See Instructions, 100 strip(s), 11, Test TID DX E11.40 on insulin, [facility] #[id number], Supply, 180, cm, 09/12/23 13:35:00 EST, Height/Length Dosing, 149.8, kg, 09/12/23 13:35:00 EST, Weight Dosing Start: 09-16-2023 Insulin Pen Need les 31g x 8 mm, See Instructions, 450 EA, 4, Use up to 4 daily, [facility] #[id number], Supply, 180, cm, 09/12/23 13:35:00 EST, Height/Length Dosing, 149.8, kg, 09/12/23 13:35:00 EST, Weight Dosing Start: 09-16-2023 lancets, See Instructions, 100 EA, 11, test blood sugar tid dx E11.9 on insulin, [facility] #[id number], Supply, 180, cm, 09/12/23 13:35:00 EST, Height/Length Dosing, 149.8, kg, 09/12/23 13:35:00 EST, Weight Dosing Start: 09-16-2023 Glucometer test strips, See Instructions, 100 strip(s), 11, Test TID DX E11.40 on insulin, [facility] #[id number], Supply, 180, cm, 09/12/23 13:35:00 EST, Height/Length Dosing, 149.8, kg, 09/12/23 13:35:00 EST, Weight Dosing Start: 09-16-2023 Insulin Pen Need les 31g x 8 mm, See Instructions, 450 EA, 4, Use up to 4 daily, [facility] #[id number], Supply, 180, cm, 09/12/23 13:35:00 EST, Height/Length Dosing, 149.8, kg, 09/12/23 13:35:00 EST, Weight Dosing Start: 09-16-2023 lancets, See Instructions, 100 EA, 11, test blood sugar tid dx E11.9 on insulin, [facility] #[id number], Supply, 180, cm, 09/12/23 13:35:00 EST, Height/Length Dosing, 149.8, kg, 09/12/23 13:35:00 EST, Weight Dosing Start: 09-16-2023 Glucometer test strips, See Instructions, 100 strip(s), 11, Test TID DX E11.40 on insulin, [facility] #[id number], Supply, 180, cm, 09/12/23 13:35:00 EST, Height/Length Dosing, 149.8, kg, 09/12/23 13:35:00 EST, Weight Dosing Start: 09-16-2023 Insulin Pen Need les 31g x 8 mm, See Instructions, 450 EA, 4, Use up to 4 daily, [facility] #[id number], Supply, 180, cm, 09/12/23 13:35:00 EST, Height/Length Dosing, 149.8, kg, 09/12/23 13:35:00 EST, Weight Dosing Start: 09-16-2023 lancets, See Instructions, 100 EA, 11, test blood sugar tid dx E11.9 on insulin, [facility] #[id number], Supply, 180, cm, 09/12/23 13:35:00 EST, Height/Length Dosing, 149.8, kg, 09/12/23 13:35:00 EST, Weight Dosing Start: 09-16-2023 Glucometer test strips, See Instructions, 100 strip(s), 11, Test TID DX E11.40 on insulin, [facility] #[id number], Supply, 180, cm, 09/12/23 13:35:00 EST, Height/Length Dosing, 149.8, kg, 09/12/23 13:35:00 EST, Weight Dosing Start: 09-16-2023 Insulin Pen Need les 31g x 8 mm, See Instructions, 450 EA, 4, Use up to 4 daily, [facility] #[id number], Supply, 180, cm, 09/12/23 13:35:00 EST, Height/Length Dosing, 149.8, kg, 09/12/23 13:35:00 EST, Weight Dosing Start: 09-16-2023 lancets, See Instructions, 100 EA, 11, test blood sugar tid dx E11.9 on insulin, [facility] #[id number], Supply, 180, cm, 09/12/23 13:35:00 EST, Height/Length Dosing, 149.8, kg, 09/12/23 13:35:00 EST, Weight Dosing Start: 09-16-2023 Glucometer test strips, See Instructions, 100 strip(s), 11, Test TID DX E11.40 on insulin, [facility] #[id number], Supply, 180, cm, 09/12/23 13:35:00 EST, Height/Length Dosing, 149.8, kg, 09/12/23 13:35:00 EST, Weight Dosing Start: 09-16-2023 Insulin Pen Need les 31g x 8 mm, See Instructions, 450 EA, 4, Use up to 4 daily, [facility] #[id number], Supply, 180, cm, 09/12/23 13:35:00 EST, Height/Length Dosing, 149.8, kg, 09/12/23 13:35:00 EST, Weight Dosing Start: 09-16-2023 lancets, See Instructions, 100 EA, 11, test blood sugar tid dx E11.9 on insulin, [facility] #[id number], Supply, 180, cm, 09/12/23 13:35:00 EST, Height/Length Dosing, 149.8, kg, 09/12/23 13:35:00 EST, Weight Dosing Start: 09-16-2023 Glucometer test strips, See Instructions, 100 strip(s), 11, Test TID DX E11.40 on insulin, [facility] #[id number], Supply, 180, cm, 09/12/23 13:35:00 EST, Height/Length Dosing, 149.8, kg, 09/12/23 13:35:00 EST, Weight Dosing Start: 09-16-2023 Insulin Pen Need les 31g x 8 mm, See Instructions, 450 EA, 4, Use up to 4 daily, [facility] #[id number], Supply, 180, cm, 09/12/23 13:35:00 EST, Height/Length Dosing, 149.8, kg, 09/12/23 13:35:00 EST, Weight Dosing Start: 09-16-2023 lancets, See Instructions, 100 EA, 11, test blood sugar tid dx E11.9 on insulin, [facility] #[id number], Supply, 180, cm, 09/12/23 13:35:00 EST, Height/Length Dosing, 149.8, kg, 09/12/23 13:35:00 EST, Weight Dosing Start: 09-16-2023 Glucometer test strips, See Instructions, 100 strip(s), 11, Test TID DX E11.40 on insulin, [facility] #[id number], Supply, 180, cm, 09/12/23 13:35:00 EST, Height/Length Dosing, 149.8, kg, 09/12/23 13:35:00 EST, Weight Dosing Start: 09-16-2023 Insulin Pen Need les 31g x 8 mm, See Instructions, 450 EA, 4, Use up to 4 daily, [facility] #[id number], Supply, 180, cm, 09/12/23 13:35:00 EST, Height/Length Dosing, 149.8, kg, 09/12/23 13:35:00 EST, Weight Dosing Start: 09-16-2023 lancets, See Instructions, 100 EA, 11, test blood sugar tid dx E11.9 on insulin, [facility] #[id number], Supply, 180, cm, 09/12/23 13:35:00 EST, Height/Length Dosing, 149.8, kg, 09/12/23 13:35:00 EST, Weight Dosing Start: 09-16-2023 Glucometer test strips, See Instructions, 100 strip(s), 11, Test TID DX E11.40 on insulin, [facility] #[id number], Supply, 180, cm, 09/12/23 13:35:00 EST, Height/Length Dosing, 149.8, kg, 09/12/23 13:35:00 EST, Weight Dosing Start: 09-16-2023 Insulin Pen Need les 31g x 8 mm, See Instructions, 450 EA, 4, Use up to 4 daily, [facility] #[id number], Supply, 180, cm, 09/12/23 13:35:00 EST, Height/Length Dosing, 149.8, kg, 09/12/23 13:35:00 EST, Weight Dosing Start: 09-16-2023 lancets, See Instructions, 100 EA, 11, test blood sugar tid dx E11.9 on insulin, [facility] #[id number], Supply, 180, cm, 09/12/23 13:35:00 EST, Height/Length Dosing, 149.8, kg, 09/12/23 13:35:00 EST, Weight Dosing Start: 09-16-2023 Glucometer test strips, See Instructions, 100 strip(s), 11, Test TID DX E11.40 on insulin, [facility] #[id number], Supply, 180, cm, 09/12/23 13:35:00 EST, Height/Length Dosing, 149.8, kg, 09/12/23 13:35:00 EST, Weight Dosing Start: 09-16-2023 Insulin Pen Need les 31g x 8 mm, See Instructions, 450 EA, 4, Use up to 4 daily, [facility] #[id number], Supply, 180, cm, 09/12/23 13:35:00 EST, Height/Length Dosing, 149.8, kg, 09/12/23 13:35:00 EST, Weight Dosing Start: 09-16-2023 lancets, See Instructions, 100 EA, 11, test blood sugar tid dx E11.9 on insulin, [facility] #[id number], Supply, 180, cm, 09/12/23 13:35:00 EST, Height/Length Dosing, 149.8, kg, 09/12/23 13:35:00 EST, Weight Dosing Start: 09-16-2023 Glucometer test strips, See Instructions, 100 strip(s), 11, Test TID DX E11.40 on insulin, [facility] #[id number], Supply, 180, cm, 09/12/23 13:35:00 EST, Height/Length Dosing, 149.8, kg, 09/12/23 13:35:00 EST, Weight Dosing Start: 09-16-2023 Insulin Pen Need les 31g x 8 mm, See Instructions, 450 EA, 4, Use up to 4 daily, [facility] #[id number], Supply, 180, cm, 09/12/23 13:35:00 EST, Height/Length Dosing, 149.8, kg, 09/12/23 13:35:00 EST, Weight Dosing Start: 09-16-2023 lancets, See Instructions, 100 EA, 11, test blood sugar tid dx E11.9 on insulin, [facility] #[id number], Supply, 180, cm, 09/12/23 13:35:00 EST, Height/Length Dosing, 149.8, kg, 09/12/23 13:35:00 EST, Weight Dosing Start: 09-16-2023 Glucometer test strips, See Instructions, 100 strip(s), 11, Test TID DX E11.40 on insulin, [facility] #[id number], Supply, 180, cm, 09/12/23 13:35:00 EST, Height/Length Dosing, 149.8, kg, 09/12/23 13:35:00 EST, Weight Dosing Start: 09-16-2023 Insulin Pen Need les 31g x 8 mm, See Instructions, 450 EA, 4, Use up to 4 daily, [facility] #[id number], Supply, 180, cm, 09/12/23 13:35:00 EST, Height/Length Dosing, 149.8, kg, 09/12/23 13:35:00 EST, Weight Dosing Start: 09-16-2023 lancets, See Instructions, 100 EA, 11, test blood sugar tid dx E11.9 on insulin, [facility] #[id number], Supply, 180, cm, 09/12/23 13:35:00 EST, Height/Length Dosing, 149.8, kg, 09/12/23 13:35:00 EST, Weight Dosing Start: 09-16-2023 Glucometer test strips, See Instructions, 100 strip(s), 11, Test TID DX E11.40 on insulin, [facility] #[id number], Supply, 180, cm, 09/12/23 13:35:00 EST, Height/Length Dosing, 149.8, kg, 09/12/23 13:35:00 EST, Weight Dosing Start: 09-16-2023 Insulin Pen Need les 31g x 8 mm, See Instructions, 450 EA, 4, Use up to 4 daily, [facility] #[id number], Supply, 180, cm, 09/12/23 13:35:00 EST, Height/Length Dosing, 149.8, kg, 09/12/23 13:35:00 EST, Weight Dosing Start: 09-16-2023 lancets, See Instructions, 100 EA, 11, test blood sugar tid dx E11.9 on insulin, [facility] #[id number], Supply, 180, cm, 09/12/23 13:35:00 EST, Height/Length Dosing, 149.8, kg, 09/12/23 13:35:00 EST, Weight Dosing Start: 09-16-2023 Glucometer test strips, See Instructions, 100 strip(s), 11, Test TID DX E11.40 on insulin, [facility] #[id number], Supply, 180, cm, 09/12/23 13:35:00 EST, Height/Length Dosing, 149.8, kg, 09/12/23 13:35:00 EST, Weight Dosing Start: 09-16-2023 Insulin Pen Need les 31g x 8 mm, See Instructions, 450 EA, 4, Use up to 4 daily, [facility] #[id number], Supply, 180, cm, 09/12/23 13:35:00 EST, Height/Length Dosing, 149.8, kg, 09/12/23 13:35:00 EST, Weight Dosing Start: 09-16-2023 lancets, See Instructions, 100 EA, 11, test blood sugar tid dx E11.9 on insulin, [facility] #[id number], Supply, 180, cm, 09/12/23 13:35:00 EST, Height/Length Dosing, 149.8, kg, 09/12/23 13:35:00 EST, Weight Dosing Start: 09-16-2023 Glucometer test strips, See Instructions, 100 strip(s), 11, Test TID DX E11.40 on insulin, [facility] #[id number], Supply, 180, cm, 09/12/23 13:35:00 EST, Height/Length Dosing, 149.8, kg, 09/12/23 13:35:00 EST, Weight Dosing Start: 09-16-2023 Insulin Pen Need les 31g x 8 mm, See Instructions, 450 EA, 4, Use up to 4 daily, [facility] #[id number], Supply, 180, cm, 09/12/23 13:35:00 EST, Height/Length Dosing, 149.8, kg, 09/12/23 13:35:00 EST, Weight Dosing Start: 09-16-2023 lancets, See Instructions, 100 EA, 11, test blood sugar tid dx E11.9 on insulin, [facility] #[id number], Supply, 180, cm, 09/12/23 13:35:00 EST, Height/Length Dosing, 149.8, kg, 09/12/23 13:35:00 EST, Weight Dosing Start: 09-16-2023 Glucometer test strips, See Instructions, 100 strip(s), 11, Test TID DX E11.40 on insulin, [facility] #[id number], Supply, 180, cm, 09/12/23 13:35:00 EST, Height/Length Dosing, 149.8, kg, 09/12/23 13:35:00 EST, Weight Dosing Start: 09-16-2023 Insulin Pen Need les 31g x 8 mm, See Instructions, 450 EA, 4, Use up to 4 daily, [facility] #[id number], Supply, 180, cm, 09/12/23 13:35:00 EST, Height/Length Dosing, 149.8, kg, 09/12/23 13:35:00 EST, Weight Dosing Start: 09-16-2023 lancets, See Instructions, 100 EA, 11, test blood sugar tid dx E11.9 on insulin, [facility] #[id number], Supply, 180, cm, 09/12/23 13:35:00 EST, Height/Length Dosing, 149.8, kg, 09/12/23 13:35:00 EST, Weight Dosing Start: 09-16-2023 Glucometer test strips, See Instructions, 100 strip(s), 11, Test TID DX E11.40 on insulin, [facility] #[id number], Supply, 180, cm, 09/12/23 13:35:00 EST, Height/Length Dosing, 149.8, kg, 09/12/23 13:35:00 EST, Weight Dosing Start: 09-16-2023 Insulin Pen Need les 31g x 8 mm, See Instructions, 450 EA, 4, Use up to 4 daily, [facility] #[id number], Supply, 180, cm, 09/12/23 13:35:00 EST, Height/Length Dosing, 149.8, kg, 09/12/23 13:35:00 EST, Weight Dosing Start: 09-16-2023 lancets, See Instructions, 100 EA, 11, test blood sugar tid dx E11.9 on insulin, [facility] #[id number], Supply, 180, cm, 09/12/23 13:35:00 EST, Height/Length Dosing, 149.8, kg, 09/12/23 13:35:00 EST, Weight Dosing Start: 09-16-2023 [id number] Start: 05-05-2024 End: 06-21-2025 Glucometer test strips, See Instructions, 100 strip(s), 11, Test TID DX E11.40 on insulin, [facility] #[id number], Supply, 180, cm, 09/12/23 13:35:00 EST, Height/Length Dosing, 149.8, kg, 09/12/23 13:35:00 EST, Weight Dosing Start: 09-16-2023 Insulin Pen Need les 31g x 8 mm, See Instructions, 450 EA, 4, Use up to 4 daily, [facility] #[id number], Supply, 180, cm, 09/12/23 13:35:00 EST, Height/Length Dosing, 149.8, kg, 09/12/23 13:35:00 EST, Weight Dosing Start: 09-16-2023 lancets, See Instructions, 100 EA, 11, test blood sugar tid dx E11.9 on insulin, [facility] #[id number], Supply, 180, cm, 09/12/23 13:35:00 EST, Height/Length Dosing, 149.8, kg, 09/12/23 13:35:00 EST, Weight Dosing Start: 09-16-2023 Glucometer test strips, See Instructions, 100 strip(s), 11, Test TID DX E11.40 on insulin, [facility] #[id number], Supply, 180, cm, 09/12/23 13:35:00 EST, Height/Length Dosing, 149.8, kg, 09/12/23 13:35:00 EST, Weight Dosing Start: 09-16-2023 Insulin Pen Need les 31g x 8 mm, See Instructions, 450 EA, 4, Use up to 4 daily, [facility] #[id number], Supply, 180, cm, 09/12/23 13:35:00 EST, Height/Length Dosing, 149.8, kg, 09/12/23 13:35:00 EST, Weight Dosing Start: 09-16-2023 lancets, See Instructions, 100 EA, 11, test blood sugar tid dx E11.9 on insulin, [facility] #[id number], Supply, 180, cm, 09/12/23 13:35:00 EST, Height/Length Dosing, 149.8, kg, 09/12/23 13:35:00 EST, Weight Dosing Start: 09-16-2023 Glucometer test strips, See Instructions, 100 strip(s), 11, Test TID DX E11.40 on insulin, [facility] #[id number], Supply, 180, cm, 09/12/23 13:35:00 EST, Height/Length Dosing, 149.8, kg, 09/12/23 13:35:00 EST, Weight Dosing Start: 09-16-2023 Insulin Pen Need les 31g x 8 mm, See Instructions, 450 EA, 4, Use up to 4 daily, [facility] #[id number], Supply, 180, cm, 09/12/23 13:35:00 EST, Height/Length Dosing, 149.8, kg, 09/12/23 13:35:00 EST, Weight Dosing Start: 09-16-2023 lancets, See Instructions, 100 EA, 11, test blood sugar tid dx E11.9 on insulin, [facility] #[id number], Supply, 180, cm, 09/12/23 13:35:00 EST, Height/Length Dosing, 149.8, kg, 09/12/23 13:35:00 EST, Weight Dosing Start: 09-16-2023 USE TO TEST BLOO D SUGARS THREE TIMES A DAY. [id number] Start: 12-05-2024 End: 03-13-2025 Pen Needle 31G x 6mm, See Instructions, 100 EA, 1, Pen Needle 31G x 6mm, [facility] #[id number], Supply, 182, cm, 12/20/24 13:40:00 EDT, Height/Length Dosing, 118.4, kg, 12/20/24 13:40:00 EDT, Weight Dosing Start: 12-21-2024 USE TO TEST BLOO D SUGARS THREE TIMES A DAY. [id number] Start: 03-13-2025 Goals Date Patient Goal Desired Activity /State 12-03-2019 Functional Status Date Assessment Result Facility 12-20-2024 Functional Status N/A [facility] 12-20-2024 Functional Status [facility] 12-04-2024 Patient Health Questionnaire 2 item (PHQ-2) [Reported] [facility] 12-02-2024 Functional Status N/A [facility] 07-09-2024 Functional Status N/A [facility] 06-23-2024 Functional Status N/A [facility] 02-28-2024 Functional Status N/A [facility] 02-09-2024 Functional Status N/A [facility] 01-15-2024 Functional Status N/A [facility] 11-20-2023 Functional Status N/A [facility] 11-17-2023 Functional status Patient is Pro gressing Toward [facility] Work Phone: 11-11-2023 Functional Status N/A [facility] 10-30-2023 Functional Status N/A [facility] 10-18-2023 Functional Status N/A [facility] 10-15-2023 Functional Status N/A [facility] 10-12-2023 Functional status Patient at Baseline [facility] Work Phone: 09-24-2023 Functional Status N/A [facility] 09-17-2023 Functional Status N/A [facility] 08-06-2023 Functional Status N/A [facility] 06-21-2023 Functional status Patient at Baseline [facility] Work Phone: 06-11-2023 Functional Status N/A [facility] 06-11-2023 Functional Status [facility] 05-22-2023 Functional Status N/A [facility] 05-08-2023 Functional Status No [facility] 09-13-2022 Functional Status N/A [facility] 08-04-2022 Functional Status N/A [facility] 03-29-2022 Functional Status N/A [facility] 03-08-2022 Functional Status N/A [facility] Mental Status Date Assessment Result Facility 11-17-2023 Cognitive function Cognitive Sta tus Patient at Baseline [facility] Work Phone: 10-12-2023 Cognitive function Cognitive Sta tus Patient at Baseline [facility] Work Phone: 06-21-2023 Cognitive function Cognitive Sta tus Patient at Baseline [facility] Work Phone: Clinical Notes 12-28-2021 to 03-24-2025 Telephone Encounter - Cooper Bradford - 03/24/2025 8:06 AM EDTTelephone Encounter - Cooper Bradford - 03/24/2025 8:06 AM Louise Brooke MD - 03/13/2025 12:20 PM EDT Note Date & Type Note Facility 03-24-2025 Telephone encounter Note Pt called into the office, he wants to cancel the nurse that is coming to his apartment. He said it is not working out. He thinks might be [facility] 03-24-2025 Miscellaneous Notes Pt called into the office, he wants to cancel the nurse that is coming to his apartment. He said it is not working out. He thinks might be [facility] documented in this encounter [facility] 03-13-2025 History of Present illness Narrative Images from the original note were not included. Patient: Nicole Lora : 1960 PCP: Mounika Brooke MD Nicole Lora is a 65 y.o. male presenting today for follow-up after being discharged from the hospital 6 days ago. The main problem requiring admission was HHS and muscle cramps. The discharge summary and/or Transitional Care Management documentation was reviewed. Medication reconciliation was performed as indicated via the [facility] as Reviewed timestamp. Nicole Lora was contacted by Transitional Care Management services two days after his discharge. This encounter and supporting documentation was reviewed. Flowsheet Row Patient Outreach from 03/11/2025 in [facility] with Grecia Mcneil LPN Hospital Information ED, Hospital or Intermediate Facility Discharge? Hospital Patient has been contacted within two business days of discharge Yes Diagnosis Electorolyte abnormality from severe hyperglycemia, left leg cramps Discharge Date 03/07/25 Discharged To: Home Setting Discharge Hospital [facility] Eng[facility] Admission Date 03/05/25 Medications Discharge medications reviewed and reconciled from hospital? No [Pt was unable to go over medications at this time.] Is the patient having any side effects they believe may be caused by any medication additions or changes? No Does the patient have all medications ordered at discharge? Yes Nursing Interventions Nurse provided patient education Prescription Comments New per DC summary: Lantus 30 units BID, Humulin R 15 units 3 times daily AC meals sliding scale Is the patient taking all medications as directed (includes completed medication regime)? Yes Nursing Interventions Nurse provided patient education Medication Comments Pt was unable to verify medications at this time. Was instructed to please bring all medications to HFU appt with PCP on 02/11 Follow Up Tasks Medication reconciliation issues Appointments Does the patient have a primary care provider? Yes [HFU appt on 03/13] Nursing Interventions Verified appointment date/time/provider Does the patient have any upcoming specialty appointments? No Self Management Does patient have home health? no Patient Teaching Does the patient have access to their discharge instructions? Yes Nursing Interventions Reviewed instructions with patient What is the patient's perception of their health status since discharge? Improving Is the patient/caregiver able to teach back the hierarchy of who to call/visit for symptoms/problems? PCP, Specialist, Home Health nurse, Urgent Care, ED, 911 Yes Wrap Up Wrap Up Additional Comments DI: CXR, BW Call End Time 0945 Review of Systems General: Denies fever, chills CV: Denies CP, palpitations Resp: denies SOB or wheezing GI: Denies abd pain/n/v/c/d Skin: Denies rash Neuro: Denies LH or dizziness Objective Vitals: 03/13/25 1230 BP: 124/60 Pulse: 80 Temp: 98.4 F SpO2: 92% Body mass index is 38.02 kg/m . Physical Exam General: alert & oriented, NAD Head: NC/AT Oral Cavity: MMM Skin: warm, dry Heart: RRR, No m/r/g, S1S2 nml Lungs: CTA b/l Abdomen: soft, ND/NT, BS wnl Musculoskeletal: walker use Extremities: no clubbing, cyanosis Neurological: nonfocal Psych: mood/affect full range Assessment/Plan Nicole was seen today for hospital follow-up and leg pain. Diagnoses and all orders for this visit: Hospital discharge follow-up (Primary) - Reviewed hospital course with pt including labs and imaging No changes to meds at this time Encouraged follow up with specialists Type 2 diabetes mellitus with hyperglycemia, with long-term current use of insulin (HCC) - glucose blood (OneTouch Verio) test strip; USE TO TEST BLOOD SUGARS THREE TIMES A DAY. Hyperosmolar hyperglycemic state (HHS) (HCC) - as above Muscle cramps - resolved Long-term insulin use (HCC) Difficulty walking - continue to use walker Essential (primary) hypertension Stable, continue to monitor. No change in regimen. Morbid obesity ([facility]-HCC) - continue to monitor weight BMI 38.0-38.9,adult Follow up if symptoms worsen or fail to improve. documented in this encounter [facility] 03-07-2025 Note Discharge Summary Admission and Discharge Information Admit Date/Time:03/05/2025 21:17 Admitting Physician - Gennari MD, Jigna Admitting Diagnoses: 2. Type 2 diabetes mellitus with hyperosmolar nonketotic hyperglycemia, 03/05/2025 3. Pseudohyponatremia, 03/05/2025 Discharge Order Date Discharge Patient - Ordered -- 03/07/25 8:31:00 EDT, Home Discharge Diagnoses 1. Leg muscle spasm, 03/05/2025 2. Type 2 diabetes mellitus with hyperosmolar nonketotic hyperglycemia, 03/05/2025 3. Pseudohyponatremia, 03/05/2025 4. CKD (chronic kidney disease), 03/05/2025 5. Hypertension, 03/05/2025 6. Hyperlipidemia, 03/05/2025 7. Chronic hypoxic respiratory failure, 03/05/2025 8. TC (obstructive sleep apnea), 03/05/2025 9. Obesity, 03/05/2025 Procedure History Cataract extraction and insertion of intraocular lens (10/24/2017), Cataract extraction and insertion of intraocular lens (09/19/2017), Incision AND drainage (05/31/2017), Split-thickness skin graft (04/12/2017), surgical preparation of left foot ulceration for skin grafting with versajet and application of stravix skin graft to left foot ulcer (02/01/2017), left foot TMA with packing, partial closure (04/13/2015), delayed secondary closure of the left foot wound with VersaJet debridement as well as pulse lavage. excision of ulceration to the plantar left foot with single lobe rotation skin plasty flap for closure (04/10/2015), left transmetatarsal amputation with partial closure with iodoform gauze packing. incision and drainage of left infected foot with Pulsavac and pulse lavage (04/08/2015), aggressive wound debridement to right subfourth metatarsal head ulceration with Versa jet sharp debridement as well as application of Dermagraft (07/23/2014), left incision and drainage of foot abscess with wound cultures as well as partial fifth ray amputation with digit, left foot, with pulsed lavage (10/16/2013), Umbilical Hernia Repair. Hospital Course 65-year-old male with history of insulin-dependent diabetes mellitus type 2, poorly controlled diabetes mellitus, chronic kidney disease stage III, medication noncompliance, peripheral neuropathy, left foot TMA, right foot with partial amputations of the 2nd and 3rd toes, hypertension, chronic hypoxic respiratory failure on 4 L home oxygen, obstructive sleep apnea, obesity presented with complaints of left leg painful cramps associated with inability to ambulate, missing his insulin for 2 days. He was subsequently admitted to [facility] with left leg muscle spasm secondary to electrolyte abnormality from severe hyperglycemia, acute hyperosmolar nonketotic hyperglycemia secondary to medication noncompliance with insulin, pseudohyponatremia. He was treated initially in the ICU with IV insulin drip, IV fluid, muscle relaxants. Patient's overall condition improved and hyperosmolar nonketotic hyperglycemia resolved as well as hyponatremia. Muscle spasms resolved. During this admission patient was noted to be on only short acting insulin 3 times a day at home. Patient was started then on long-acting insulin, short acting insulin and sliding scale insulin and did well. He was subsequently moved to the regular medical floor where he continued to improve. He was seen by physical therapist and on recommended front wheeled walker. Patient demonstrated good use of front wheel walker this will help him with his ADLs in the home setting. Patient's overall condition improved and he was anxious to be discharged home. He was seen prior to discharge and remained in an improved and stable condition for discharge and was subsequently discharged home. Discharge time: 35 minutes. I spent 35 minutes in seeing, evaluating, educating patient on his conditions, coordinating care plan, medication reconciliation, speaking with nursing staff, case management and pharmacy. Discharge medications: Lantus 30 units twice daily Humulin R 15 units 3 times daily AC meals Sliding scale insulin AC Physical Exam Vitals & Measurements T: 36.6 ???C(Oral) TMIN: 36.5 ???C(Oral) TMAX: 36.8 ???C(Oral) HR: 76(Monitored) RR: 18 BP: 132/80 SpO2: 96% General: alert, no acute distress Skin: warm, dry Head: no trauma, normocephalic Neck: Trachea midline, no adenopathy, no tenderness Eye: normal conjunctiva, sclera clear ENMT: TM's clear, oral mucosa moist, no pharyngeal erythema or exudate Cardiovascular: regular rate and rhythm, normal peripheral perfusion Respiratory: Lungs CTA, respirations non labored Chest wall: no deformity. Gastrointestinal: soft, non distended, no tenderness, no guarding. Obese. Bowel sounds intact. Back: No tenderness, Normal ROM, Normal alignment. Extremities: no deformity, no trauma, status post left TMA stump intact. Status post right foot second and third toe amputations. Neurological: oriented x 4, LOC appropriate for age, CN II-XII intact, motor strength equal & normal bilaterally, sensation equal & normal bilaterally, speech normal Ps (more content not included)... [facility] Comment on above: Result Comment: Elec tronically Signed By: NAHOMY LYMAN, Jordan\.br\Date and Time Signed: 03/07/25 09:36 EDT 03-06-2025 Note Interdisciplinary No te - PT PT Evaluation completed with an AMPA score of 22/24. Pt sitting EOB at entrance and was able to perform sit to stand transfers with Mod I. Pt was able to ambulate with FWW with no reports of leg pain. Did ambulate x 2 times with no LOB or pain. Pt would be functionally safe to return home with use of FWW as prior. No further PT services needed [facility] 03-06-2025 Note Progress Note-Physic abundio Assessment/Plan 65-year-old male with history of insulin-dependent diabetes mellitus type 2, poorly controlled diabetes, chronic kidney disease Stage III, medication noncompliance, peripheral neuropathy, left foot TMA, right foot partial amputations of the 2nd and 3rd toes, hypertension, chronic hypoxic respiratory failure on 4 L home oxygen, obstructive sleep apnea, obesity presented with complaints of left leg painful cramps associated with inability to ambulate and missing his insulin for 2 days was admitted with leg cramps, acute diabetic hyperosmolar nonketotic hyperglycemia, pseudohyponatremia. 1. Leg muscle spasm (M62.838: Other muscle spasm) Secondary to electrolyte abnormalities from severe hyperglycemia. Resolved. Was treated with orphenadrine. Ordered: [facility] Care/Day Moderate 35 Minutes 48694 2. Type 2 diabetes mellitus with hyperosmolar nonketotic hyperglycemia (E11.00: Type 2 diabetes mellitus with hyperosmolarity without nonketotic hyperglycemic-hyperosmolar coma ([facility])) Acute hyperosmolar nonketotic hyperglycemia???present on admission. Secondary to noncompliance with medication. Treated with IV insulin drip and IV fluid. Hemoglobin A1c 11.8%. Will start patient on long-acting insulin, regular insulin and sliding scale insulin. Ordered: [facility] Care/Day Moderate 35 Minutes 38446 3. Pseudohyponatremia (R79.89: Other specified abnormal findings of blood chemistry) Secondary to hypoglycemia. Resolved. Ordered: [facility] Care/Day Moderate 35 Minutes 80173 4. CKD (chronic kidney disease) (N18.9: Chronic kidney disease, unspecified) Chronic kidney disease stage III???back to baseline. Ordered: [facility] Care/Day Moderate 35 Minutes [id number] 5. Hypertension (I10: Essential (primary) hypertension) Blood pressure stable. On losartan at home. 6. Hyperlipidemia (E78.5: Hyperlipidemia, unspecified) Diet controlled. 7. Chronic hypoxic respiratory failure (J96.11: Chronic respiratory failure with hypoxia) Continue home oxygen at 4 L. 8. TC (obstructive sleep apnea) (G47.33: Obstructive sleep apnea (adult) (pediatric)) Noncompliant with CPAP. Supportive care. 9. Obesity (E66.9: Obesity, unspecified) Recommend therapeutic lifestyle modification changes. Disposition: May transfer to telemetry. I discussed the diagnosis and plan of care with the patient at the bedside. Moderate level of MDM based on addressing above issues. This documentation was transcribed using voice recognition software. Several attempts were made to ensure accuracy. However inadvertent computerized automotive refinish technician errors may be present. Jordan Macario. Hospitalist. Orders: glucose, 50 mL, Soln-IV, IV Push, Once PRN Blood glucose, Routine, Start date 03/06/25 10:10:00 EDT insulin glargine, 30 unit(s) = 0.3 mL, Injection-Insulin, SubCutaneous, BID for 30 day(s), Stop date 04/05/25 10:07:00 EDT, NOW, Start date 03/06/25 10:08:00 EDT insulin lispro, 0-10 Unit(s), Injection-Insulin, SubCutaneous, QIDACHS, Routine, Start date 03/06/25 11:30:00 EDT insulin regular, 15 unit(s) = 0.15 mL, Injection-Insulin, SubCutaneous, TIDAC for 30 day(s), Stop date 04/05/25 11:29:00 EDT, Start date 03/06/25 11:30:00 EDT Hypoglycemia Protocol Responsive Patient Hypoglycemia Protocol Unresponsive Patient Routine Capillary Glucose POC Subjective Seen and examined. Feels better today with no leg cramps. Objective Vitals & Measurements T: 36.9 ???C(Oral) TMIN: 36.5 ???C(Oral) TMAX: 36.9 ???C(Oral) HR: 56(Monitored) RR: 15 BP: 111/73 SpO2: 100% HT: 182.88 cm WT: 115.7 kg Intake & Output This visit (24 hour periods starting at 07:00 EDT) 03/06/25 * 03/05/25 03/04/25 Total Summary Intake mL 360 3,047.74 -- Output mL 550 1,025 -- Fluid Balance -190 2,022.74 -- Intake (8) Dextrose 5% with 0.45% NaCl and KCl 20 mEq/l 1,000 mL mL -- 348.09 -- Oral Intake mL 360 -- -- Sodium Chloride 0.45% with KCl 20 mEq/l 1,000 mL mL -- 664.97 -- Sodium Chloride 0.9% mL -- 2,000 -- insulin regular mL -- 0.1 -- insulin regular 100 unit(s) [4 unit/hr] + Sodium Chloride 0.9% intravenous solution 100 mL mL -- 31.58 -- morphine mL -- 1 -- orphenadrine mL -- 2 -- Total 360 3,047.74 -- Output (1) Urine Voided mL 550 1,025 -- Total 550 1,025 -- Counts (0) * This column has not completed the indicated time period. Physical Exam General: alert, no acute distress, comfortable in bed on nasal cannula oxygen. Skin: warm, dry Head: no trauma, normocephalic Neck: Trachea midline, no adenopathy, no tenderness Eye: normal conjunctiva, sclera clear ENMT: TM's clear, oral mucosa moist, no pharyngeal erythema or exudate Cardiovascular: regular rate and rhythm, normal peripheral perfusion Respiratory: Lungs CTA, respirations non labored Chest wall: no deformity. Gastrointestin (more content not included)... [facility] Comment on above: Result Comment: Elec tronically Signed By: NAHOMY LYMAN, Jordan\.br\Date and Time Signed: 03/06/25 10:24 EDT 03-05-2025 Note History and Physical Basic Information Admit Date/Time:03/05/2025 21:17 Chief Complaint Unable to walk because of left leg pain History of Present Illness The patient is a 65-year-old male with past medical history of insulin-dependent type 2 diabetes, poorly controlled diabetes, CKD 3-4, medication nonadherence, peripheral neuropathy, lower extremity amputations including left foot transmetatarsal amputation, partial amputation of his right 2nd and 3rd toes, hypertension, chronic hypoxic resp failure wears 4LPM at night, TC, obesity. He presented to the hospital with severe muscle spasms to his left thigh for the past 5 days. Has escalated to the point where he hasn't been able to ambulate and had to crawl to the bathroom today. Also reports involuntary movements of his leg. He has known uncontrolled diabetes and neuropathy. He has not taken his insulin for the past 2 days as he states his med bag was in his car and he physically couldn't walk out there to get it because of his leg. ED Course: Patient found to have a serum glucose of 1084. Sodium low at 119 (correct Na for glucose 135). No evidence of DKA as AGAP and CO2 normal. Beta hydroxybutyrate elevated. Creatinine elevated at 1.9, it appears his baseline is 1.5-1.9. CBC normal. CXR stable. He was given 2 liters total of IVF and started on an insulin drip. Also given a dose of Orphenadrine for his leg spasm. He still reports pain. Most recent sugar after being placed on the insulin drip has come down to 726 Review of Systems Constitutional: no fever, no chills, no sweats, + weakness Skin: no jaundice, no rash, no lesions, no petechiae ENMT: no ear pain, no sore throat, no congestion, no hoarseness Respiratory: + shortness of breath, no cough, no orthopnea, no wheezing Cardiovascular: no chest pain, no palpitations, no edema Gastrointestinal: no nausea, no vomiting, no diarrhea, no abdominal pain Genitourinary: no dysuria, no hematuria Musculoskeletal: no trauma, + joint or muscle pain Neurologic: no headache, no dizziness, no confusion Psychiatric: no depression, no anxiety Heme/Lymph: no bleeding tendency, no bruising tendency Additional ROS info: Except as noted in the above Review of Systems and in the History of Present Illness all other systems have been reviewed and are negative or noncontributory. Scoring Yu Fall Risk Score: 85 High (03/05/25) Physical Exam Vitals & Measurements T: 36.7 ???C(Oral) TMIN: 36.5 ???C(Oral) TMAX: 36.7 ???C(Oral) HR: 70(Monitored) RR: 18 BP: 163/76 SpO2: 98% HT: 182.88 cm WT: 115.7 kg General: overall NAD, will grab his left leg and cry out in pain if it starts spasming Skin: warm, dry, no rash Head: AT/NC Neck: Trachea midline, supple Eye: normal conjunctiva, sclera clear Cardiovascular: regular rate and rhythm, S1S2, normal peripheral perfusion Respiratory: Lungs CTA, respirations non labored, breath sounds equal, no w/r/r Chest wall: no deformity Gastrointestinal: soft, NT, ND, no peritoneal signs Extremities: no significant edema, Left foot with all toes surgically absent, Right foot with portions of 2nd and 3rd toes absent Neurological: oriented, LOC appropriate for age, no focal deficits, normal speech Psychiatric: cooperative, affect appropriate for age, good eye contact Lab Results WBC: 6.9 E9/L (03/05/25 20:15:00) RBC: 4.7 E12/L (03/05/25 20:15:00) HGB: 14.7 gm/dL (03/05/25 20:15:00) Hct: 44.1 % (03/05/25 20:15:00) MCV: 93.8 fL (03/05/25 20:15:00) MCH: 31.2 pg (03/05/25 20:15:00) MCHC: 33.2 gm/dL (03/05/25 20:15:00) RDW: 12.9 % (03/05/25 20:15:00) Platelet: 230 E9/L (03/05/25 20:15:00) MPV: 8.1 fL (03/05/25 20:15:00) Neutro Auto: 72.3 % (03/05/25 20:15:00) Lymph Auto: 17.9 % (03/05/25 20:15:00) Mccreary Auto: 6.5 % (03/05/25 20:15:00) Eos Auto: 2.4 % (03/05/25 20:15:00) Basophil Auto: 0.9 % (03/05/25 20:15:00) Neutro Absolute: 5 E9/L (03/05/25 20:15:00) Lymph Absolute: 1.2 E9/L (03/05/25 20:15:00) Mccreary Absolute: 0.4 E9/L (03/05/25 20:15:00) Eos Absolute: 0.2 E9/L (03/05/25 20:15:00) Basophil Absolute: 0.1 E9/L (03/05/25 20:15:00) Glucose Lvl: 1084 mg/dL Critical (03/05/25 20:15:00) Glucose Random: 726 mg/dL Critical (03/05/25 22:25:00) BUN: 40 mg/dL High (03/05/25 20:15:00) Creatinine: 1.9 mg/dL High (03/05/25 20:15:00) eGFR: 38 mL/min/1.73 m2 Low (03/05/25 20:15:00) BUN/Creat Ratio: 21 High (03/05/25 20:15:00) Sodium Lvl: 119 mmol/L Critical (03/05/25 20:15:00) Potassium Lvl: 4.6 mmol/L (03/05/25 20:15:00) Chloride: 86 mmol/L Low (03/05/25 20:15:00) CO2: 25 mmol/L (03/05/25 20:15:00) AGAP: 13 mEq/L (03/05/25 20:15:00) Calcium Lvl: 8.4 mg/dL Low (03/05/25 20:15:00) Alk Phos: 160 Int._Unit/L High (03/05/25 20:15:00) ALT: 19 Int._Unit/L (03/05/25 20:15:00) AST: 15 Int._Unit/L (03/05/25 20:15:00) Total Protein: 6.1 gm/dL (03/05/25 20:15:00) Albumin Lvl: 3.3 gm/dL (03/05/25 20:15:00) Globulin: 2.8 gm/dL (03/05/25 20:15:00) A/G Ratio: 1.2 (03/05/25 20:15:00) B (more content not included)... [facility] Comment on above: Result Comment: Elec tronically Signed By: Erick LYMAN, Jigna\.br\Date and Time Signed: 03/05/25 23:22 EDT 02-05-2025 History of Present illness Narrative Images from the original note were not included. Subjective Patient ID: Nicole Lora is a 65 y.o. male who presents for No chief complaint on file.. HPI Pt here for follow up. Has been working with [employer] for possible scooter. States they have been to measure him and the doorway. Continues to have weakness and difficulty walking. +frequent falls w/o significant injuries DM - denies sx of high or low BG. Denies side effects of meds. Is following with endocrinology HTN - denies sx of high or low BP. Denies side effects of meds. Review of Systems General: Denies fever, chills, fatigue, VOSS or weight loss/gain CV: Denies CP, palpitations Resp: denies cough, SOB or wheezing GI: Denies abd pain/n/v/c/d Skin: Denies rash Neuro: Denies LH or dizziness Objective Blood pressure 138/82, pulse 77, temperature 98.7 F, temperature source Temporal, height 5' 11 , weight 261 lb 3.2 oz, SpO2 98%. Body mass index is 36.43 kg/m . Physical Exam General: alert & oriented, NAD Head: NC/AT Oral Cavity: MMM Skin: warm, dry Heart: RRR, No m/r/g, S1S2 nml Lungs: CTA b/l Abdomen: soft, ND/NT, BS wnl Musculoskeletal: abnormal gait Extremities: no clubbing, cyanosis, venous stasis dermatitis noted b/l Neurological: nonfocal Psych: mood/affect full range Assessment/Plan Diagnoses and all orders for this visit: Chronic hypoxemic respiratory failure (HCC) (Primary) Stable, continue to monitor. No change in regimen. Leg weakness, bilateral - Continue to work with [employer] Essential (primary) hypertension Stable, continue to monitor. No change in regimen. Difficulty walking - as above Type 2 diabetes mellitus with hyperglycemia, with long-term current use of insulin (HCC) - continue to follow w/ endocrinology Long-term insulin use (HCC) Morbid obesity ([facility]-HCC) - continue to monitor weight BMI 36.0-36.9,adult documented in this encounter [facility] 02-05-2025 Telephone encounter Note Brittani from called and stated that he's been unbalanced, having a hard time sleeping, his blood sugar is at 155. Pt states that is too low for him. [facility] 02-05-2025 Miscellaneous Notes Brittani from called and stated that he's been unbalanced, having a hard time sleeping, his blood sugar is at 155. Pt states that is too low for him. documented in this encounter [facility] 12-25-2024 History of Present illness Narrative Nicole Lora is a 64 y.o. male No ref. provider found presents with chief complaint of No chief complaint on file. HPI: IM 12/2024 follow up visit on 12/25/2024, on U-500 50 units am and 50 units pm. He is not sure is taking Tradjenta or not, he is on gabapentin 600 twice a day. IM 08/2024 follow up visit on 09/04/2024 bg 406, A1c 12.9 , on U-500 50 units am and 30 units pm. IM 06/2024 follow up visit on 07/15/2024 bg 243, A1c >14.1 ON , on Toujeo to 20 units bid; NovoLog to 15-18-20 as a base, plus scale #3 ?, Jentadueto 2.12/999 mg twice a day. IM 01/2024 follow up visit on 01/24/2024 bg 407, A1c 12.4 on Toujeo to 25 units bid; NovoLog to 15-18-20 as a base, plus scale #3, Jentadueto 2.12/999 mg twice a day. IM :07/2023 follow up visit on 08/10/2023 bg 192, on Toujeo to 45 units at bedtime; NovoLog to 15-18-20 as a base, plus scale #3, Jentadueto 2.12/999 mg twice a day, no new lab HPI: 06/2023 New patient came by himself after he left the hospital. He has had diabetes for a long time. He had a left transmetatarsal amputation in 2011. Currently the meter is 0 in low range; 28 in good range; 72 in high range; average 285. Currently he is on Jentadueto 2.12/999 mg twice a day and Toujeo 35 twice a day and NovoLog average 30 units once or twice a day. Blood sugar in our office 341; A1C 11. SUBJECTIVE: MEDICATIONS: Current Outpatient Medications Medication Instructions albuterol HFA 90 mcg/act inhaler 2 puffs, Every 4 hours PRN amLODIPine (Norvasc) 10 MG tablet 1 tablet, Daily atorvastatin (LIPITOR) 40 mg, Every 24 hours Continuous Blood Gluc Roving Department Supervisor (FreeStyle Sage 3 [place]) device 1 each, Does not apply, Continuous Continuous Blood Gluc Sensor (FreeStyle Sage 3 Sensor) misc 1 each, Does not apply, Every 14 days doxycycline (VIBRAMYCIN) 100 mg, 2 times daily DULoxetine (CYMBALTA) 60 mg, Daily Fiasp FlexTouch 100 UNIT/ML injection inject PLUS ISS #2 (EXPECT DAILY DOSE OF 80 UNITS) gabapentin (NEURONTIN) 600 mg, Oral, 3 times daily glucose blood (ProspectWiseTouch Verio) test strip USE TO TEST BLOOD SUGARS THREE TIMES A DAY. guaiFENesin (MUCINEX) 1,200 mg, 2 times daily HumuLIN R U-500 KWIKPEN 50 Units, Subcutaneous, 3 times daily hydrALAZINE (APRESOLINE) 10 mg, Every 12 hours linaGLIPtin (TRADJENTA) 5 mg, Oral, Daily lisinopril-hydroCHLOROthiazide 20-25 MG tablet 1 tablet, Daily losartan (COZAAR) 100 mg, Oral, Daily methylPREDNISolone (Medrol Dospak) 4 MG tablets Follow schedule on package instructions Misc. Devices (Cane) misc 1 each, Does not apply, Continuous oxyCODONE-acetaminophen (Percocet) 5-325 MG tablet pen needle 31G x 8 mm misc Use as instructed potassium chloride ER (Micro-K) 10 MEQ ER capsule 10 mEq, Daily rOPINIRole (REQUIP) 2 mg, Oral, Nightly Symbicort 160-4.5 MCG/ACT inhaler 2 puffs, 2 times daily torsemide (DEMADEX) 60 mg, 3 times daily ALLERGIES: Allergies Allergen Reactions Penicillins Rash Penicillamine Unknown Past Medical History: Diagnosis Date Acute hypoxemic respiratory failure ([facility]) Acute on chronic respiratory failure with hypercapnia ([facility]) AMY (acute kidney injury) ([facility]) Arthritis Asthma Cataract Chronic kidney disease, stage 3b ([facility]) ([facility] Diabetes ([facility] Diabetes mellitus with neuropathy ([facility]) Dietary counseling and surveillance Dry eyes GERD (gastroesophageal reflux disease) Hypertension ([facility]) Lymphedema of both lower extremities 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 mellitus ([facility]) Morbid obesity with body mass index (BMI) of 40.0 to 49.9 ([facility]) Onychomycosis Pneumonia 06/19/2024 [facility] [place]pulmonary valve disease) Type 2 diabetes mellitus with hyperglycemia ([facility]) Vitamin D deficiency, unspecified Past Surgical History: Procedure Laterality Date AMPUTATION Left foot CATARACT EXTRACTION HERNIA REPAIR TOE SURGERY 2016 REVIEW OF SYMPTOMS: Diet and exercise reviewed with the patient OBJECTIVE: Lab Results Component Value Date HGBA1C 12.9 09/04/2024 HGBA1C >14.0 (H) 06/21/2024 Lab Results Component Value Date GLU 406 09/04/2024 GLU 243 07/15/2024 GLU 355 (H) 12/07/2023 Visit Vitals Smoking Status Never ASSESSMENT AND PLAN: Assessment/Plan Diagnoses and all orders for this visit: Type 2 diabetes mellitus with hyperglycemia, with long-term current use of insulin ([facility]) - gabapentin (Neurontin) 600 MG tablet; Take 1 tablet (600 mg) by mouth in the morning and 1 tablet (600 mg) in the evening and 1 tablet (600 mg) before bedtime. - linaGLIPtin (Tradjenta) 5 MG tablet; Take 1 tablet (5 mg) by mouth Daily - insulin regular (HumuLIN R U-500 KWIKPEN) 500 UNIT/ML CONCENTRATED injection; Inject 50 Units under the skin in the morning and 50 Units in the evening and 50 Units before bedtime. We will c/o U500 to 50 units in the morning, 50 at lunch, 30 at supper, start Tradjenta 5 mg once a day. C/o gabapentin to 600 3 times a day. Insulin long-term use ([facility]) Vitamin D deficiency Encounter for dietary consultation Hyperlipemia, mixed ([facility]) Primary hypertension ([facility]) Follow up in about 6 months (around 06/27/2025). documented in this encounter [facility] 12-21-2024 Hospital Discharge instructions Patient Education 12/21/2024 14:26:36 Blood Glucose Monitoring, Adult Blood Glucose Monitoring, Adult To manage your diabetes, you will need to keep track of your blood sugar (glucose). Check your blood glucose as often as told. Keep a record of your results over time. This can help you: Know when to adjust your diabetes management plan with your health care provider. See how food, exercise, illness, and medicines affect your blood glucose. Know what your blood glucose is at any time. Your provider will set specific goals for your blood glucose levels. In many cases, these goals may be: Before meals (preprandial): 80 130 mg/dL (4.4 7.2 mmol/L). After meals (postprandial): below 180 mg/dL (10 mmol/L). A1C level: less than 7%. Supplies needed: Blood glucose meter. Test strips for your meter. Each meter has its own strips. You must use the strips that came with your meter. A needle to prick your finger (lancet). Do not use a lancet more than once. A device that holds the lancet (lancing device). A journal or logbook to write down your results. How to check your blood glucose Checking your blood glucose 1.Wash your hands with soap and water for at least 20 seconds. 2.Prick the side of your finger with the lancet. Do not prick the tip of your finger. Do not use the same finger more than once. 3.Gently rub the finger until a small drop of blood appears. 4.Follow the instructions that came with the meter about how to insert the test strip, apply blood to the strip, and use the meter. 5.Write down your result and any notes. Using alternative sites Some meters let you use other areas of your body (alternative sites) to test your blood. The most common places are the forearm, the thigh, and the palm of your hand. Alternative sites may not be as accurate as your fingers. The result you get may also be delayed. Use the finger only, and do not use alternative sites, if: You think you have low blood glucose (hypoglycemia). You sometimes do not know that your blood glucose is getting low (hypoglycemia unawareness). General tips and recommendations Blood glucose log Write down the result each time you check your blood glucose. Note anything that may be affecting your blood glucose. This can help you and your provider: ?Look for patterns over time. ?Adjust your management plan as needed. Check if your meter has an anny or lets you download your records to a computer. Most meters keep a record of glucose readings in the meter. If you have type 1 diabetes: You may need to check your blood glucose 4 or more times a day. Check your blood glucose as often as told by your provider. This may include: ?Before each meal and snack. ?Two hours after a meal. ?Before bedtime. ?If you have symptoms of hypoglycemia. ?After treating your hypoglycemia. ?Before doing things that have a risk of injury, such as driving or using machinery. ?Before and after exercise. ?Between 2:00 a.m. and 3:00 a.m., as told. You may need to check your blood glucose more often, such as up to 6 10 times a day, if: ?You have diabetes that is not well controlled. ?You are ill. ?You have a history of severe hypoglycemia. ?You have hypoglycemia unawareness. If you have type 2 diabetes: You may need to check your blood glucose 2 or more times a day. Check your blood glucose as often as told by your provider. This may include: ?Before and after exercise. ?Before doing things that have a risk of injury, such as driving or using machinery. You may need to check your blood glucose more often if: ?Your medicine is being adjusted. ?Your diabetes is not well controlled. ?You are ill. General tips Make sure you always have your supplies with you. After you use a few boxes of test strips, adjust (calibrate) your blood glucose meter. Follow the instructions that came with your meter. If you have questions or need help, all blood glucose meters have a 24-hour hotline phone number that you can call. Also contact your provider with any questions or concerns. Where to find more information [employer] [place] [employer]: diabetes.org The Association [employer] Education [employer]ists: diabeteseducator.org Contact a health care provider if: Your blood glucose is at or above 240 mg/dL (13.3 mmol/L) for 2 days in a row. You have been sick or have had a fever for 2 days or longer and are not getting better. You have any of these problems for more than 6 hours: ?You cannot eat or drink. ?You have nausea or vomiting. ?You have diarrhea. Get help right away if: Your blood glucose is lower than 54 mg/dL (3 mmol/L). You become confused, or you have trouble thinking clearly. You have trouble breathing. You have moderate to high ketone levels in your pee (urine). These symptoms may be an emergency. Get help right away. Call 911. Do not wait to see if the symptoms will go away. Do not drive yourself to the hospital. This information is not intended to replace advice given to you by your health care provider. Make sure you discuss any questions you have with your health care provider. Document Revised: 06/23/2023 Document Reviewed: 06/23/2023 [employer] Patient Education 2023 [employer]. 12/21/2024 14:26:35 Correction Insulin Correction Insulin Correction insulin, also called a supplemental dose, is a small amount of insulin that can be used to lower your blood sugar (glucose) if it is too high. This dose brings your glucose level back to the target range. You will be instructed to check your glucose at certain times of the day and to use correction insulin as needed to lower your blood glucose. Correction insulin is primarily used as part of diabetes management. It may also be prescribed for people who do not have diabetes. What is a correction scale? A correction scale, also called a supplemental dose, is prescribed by your health care provider to help you determine when you need correction insulin. Your correction scale is based on your individual treatment goals, and it has two parts: Ranges of blood glucose levels. How much correction insulin to give yourself if your blood sugar is not in your desired range. If your blood glucose is in your desired range, you will not need correction insulin. What type of insulin do I need? You may be prescribed rapid-acting or short-acting insulin as correction insulin. Talk with your health care provider or pharmacist about which type of correction insulin to take and when to take it. Rapid-acting insulin This insulin: Starts working in the body (onset) in as little as 15 minutes. Is at its highest strength (peak) in 1 2 hours. Lasts (duration) for 2 4 hours. Short-acting insulin This insulin: Onset is in about 30 minutes. Peak is in 2 3 hours. Duration lasts for 3 6 hours. How do I manage my blood glucose with correction insulin? Giving a correction dose Check your blood glucose as directed by your health care provider. Use your correction scale to find the range that your blood glucose is in. Identify the units of insulin that match your blood glucose range. Give yourself the dose of correction insulin that your health care provider has prescribed in your correction scale. Always make sure you are using the right type of insulin. Keeping a blood glucose log Write down your blood glucose test results and the amount of insulin that you give yourself. Do this every time you check blood glucose or take insulin, even if it is in the correct range. Bring this log with you to your medical visits. This information will help your health care provider manage your medicines. Note anything that may affect your blood glucose, such as: ?Changes in normal exercise or activity. ?Changes in your normal schedule, such as changes in your sleep routine, going on vacation, changing your diet, or holidays. ?New rtkz-zio-quursiw or prescription medicines. ?Illness, stress, or anxiety. ?Changes in the time that you took your medicine or insulin. ?Changes in your meals, such as skipping a meal, having a late meal, or dining out. ?Eating things that may affect blood glucose, such as snacks, change in size of meal portions, drinks that contain sugar, or eating less than usual. Why do I need correction insulin if I do not have diabetes? If you do not have diabetes, your health care provider may prescribe insulin because: Keeping your blood glucose in the target range is important for your overall health. You are taking medicines that cause your blood glucose to be higher than normal. Contact a health care provider if: You have high blood glucose that you are not able to correct with correction insulin. You develop a low blood glucose that you are not able to treat yourself. Your blood glucose is often too low. Get help right away if: You become unresponsive. If this happens, someone else should call emergency services (911 in the [place] right away. Your blood glucose is lower than 54 mg/dL (3.0 mmol/L). You become confused or you have trouble thinking clearly. You have difficulty breathing. These symptoms may represent a serious problem that is an emergency. Do not wait to see if the symptoms will go away. Get medical help right away. Call your local emergency services (911 in the [place] Do not drive yourself to the hospital. Summary Correction insulin is primarily used in diabetes management. It can also be prescribed for people who do not have diabetes. Correction insulin is a small amount of insulin that can be used to lower your blood glucose if it is too high. It brings your glucose level to the target range. You will be instructed to check your blood glucose at certain times of the day and to use correction insulin as needed. Always keep a log of your blood glucose values and the amount of insulin you take. Talk with your health care provider or pharmacist about the type of correction insulin to take and when to take it. This information is not intended to replace advice given to you by your health care provider. Make sure you discuss any questions you have with your health care provider. Document Revised: 08/12/2021 Document Reviewed: 08/12/2021 [employer] Content Patient Education 2023 [employer]. 12/21/2024 14:25:51 Diabetic Neuropathy Diabetic Neuropathy Diabetic neuropathy refers to nerve damage that is caused by diabetes. Over time, people with diabetes can develop nerve damage throughout the body. There are several types of diabetic neuropathy: Peripheral neuropathy. This is the most common type of diabetic neuropathy. It damages the nerves that carry signals between the spinal cord and other parts of the body (peripheral nerves). This usually affects nerves in the feet, legs, hands, and arms. Autonomic neuropathy. This type causes damage to nerves that control involuntary functions (autonomic nerves). Involuntary functions are functions of the body that you do not control. They include heartbeat, body temperature, blood pressure, urination, digestion, sweating, sexual function, or response to changes in blood glucose. Focal neuropathy. This type of nerve damage affects one area of the body, such as an arm, a leg, or the face. The injury may involve one nerve or a small group of nerves. Focal neuropathy can be painful and unpredictable. It occurs most often in older adults with diabetes. This often develops suddenly, but usually improves over time and does not cause long-term problems. Proximal neuropathy. This type of nerve damage affects the nerves of the thighs, hips, buttocks, or legs. It causes severe pain, weakness, and muscle (atrophy), usually in the thigh muscles. It is more common among older men and people who have type 2 diabetes. The length of recovery time may vary. What are the causes? Peripheral, autonomic, and focal neuropathies are caused by diabetes that is not well controlled with treatment. The cause of proximal neuropathy is not known, but it may be caused by inflammation related to uncontrolled blood glucose levels. What are the signs or symptoms? Peripheral neuropathy Peripheral neuropathy develops slowly over time. When the nerves of the feet and legs no longer work, you may experience: Burning, stabbing, or aching pain in the legs or feet. Pain or cramping in the legs or feet. Loss of feeling (numbness) and inability to feel pressure or pain in the feet. This can lead to: ?Thick calluses or sores on areas of constant pressure. ?Ulcers. ?Reduced ability to feel temperature changes. Foot deformities. Muscle weakness. Loss of balance or coordination. Autonomic neuropathy The symptoms of autonomic neuropathy vary depending on which nerves are affected. Symptoms may include: Problems with digestion, such as: ?Nausea or vomiting. ?Poor appetite. ?Bloating. ?Diarrhea or constipation. ?Trouble swallowing. ?Losing weight without trying to. Problems with the heart, blood, and lungs, such as: ?Dizziness, especially when standing up. ?Fainting. ?Shortness of breath. ?Irregular heartbeat. Bladder problems, such as: ?Trouble starting or stopping urination. ?Leaking urine. ?Trouble emptying the bladder. ?Urinary tract infections (UTIs). Problems with other body functions, such as: ?Sweat. You may sweat too much or too little. ?Temperature. You might get hot easily. Or, you might feel cold more than usual. ?Sexual function. Men may not be able to get or maintain an erection. Women may have vaginal dryness and difficulty with arousal. Focal neuropathy Symptoms affect only one area of the body. Common symptoms include: Numbness. Tingling. Burning pain. Prickling feeling. Very sensitive skin. Weakness. Inability to move (paralysis). Muscle twitching. Muscles getting smaller (wasting). Poor coordination. Double or blurred vision. Proximal neuropathy Sudden, severe pain in the hip, thigh, or buttocks. Pain may spread from the back into the legs (sciatica). Pain and numbness in the arms and legs. Tingling. Loss of bladder control or bowel control. Weakness and wasting of thigh muscles. Difficulty getting up from a seated position. Abdominal swelling. Unexplained weight loss. How is this diagnosed? Diagnosis varies depending on the type of neuropathy your health care provider suspects. Peripheral neuropathy Your health care provider will do a neurologic exam. This exam checks your reflexes, how you move, and what you can feel. You may have other tests, such as: Blood tests. Tests of the fluid that surrounds the spinal cord (lumbar puncture). CT scan. MRI. Checking the nerves that control muscles (electromyogram, or EMG). Checking how quickly signals pass through your nerves (nerve conduction study). Checking a small piece of a nerve using a microscope (biopsy). Autonomic neuropathy You may have tests, such as: Tests to measure your blood pressure and heart rate. You may be secured to an exam table that moves you from a lying position to an upright position (table tilt test). Breathing tests to check your lungs. Tests to check how food moves through the digestive system (gastric emptying tests). Blood, sweat, or urine tests. Ultrasound of your bladder. Spinal fluid tests. Focal neuropathy This condition may be diagnosed with: A neurologic exam. CT scan. MRI. EMG. Nerve conduction study. Proximal neuropathy There is no test to diagnose this type of neuropathy. You may have tests to rule out other possible causes of this type of neuropathy. Tests may include: X-rays of your spine and lumbar region. Lumbar puncture. MRI. How is this treated? The goal of treatment is to keep nerve damage from getting worse. Treatment may include: Following your diabetes management plan. This will help keep your blood glucose level and your A1C level within your target range. This is the most important treatment. Using prescription pain medicine. Follow these instructions at home: Diabetes management Follow your diabetes management plan as told by your health care provider. Check your blood glucose levels. Keep your blood glucose in your target range. Have your A1C level checked at least two times a year, or as often as told. Take over the counter and prescription medicines only as told by your health care provider. This includes insulin and diabetes medicine. Lifestyle Do not use any products that contain nicotine or tobacco, such as cigarettes, e-cigarettes, and chewing tobacco. If you need help quitting, ask your health care provider. Be physically active every day. Include strength training and balance exercises. Follow a healthy meal plan. Work with your health care provider to manage your blood pressure. General instructions Ask your health care provider if the medicine prescribed to you requires you to avoid driving or using machinery. Check your skin and feet every day for cuts, bruises, redness, blisters, or sores. Keep all follow-up visits. This is important. Contact a health care provider if: You have burning, stabbing, or aching pain in your legs or feet. You are unable to feel pressure or pain in your feet. You develop problems with digestion, such as: ?Nausea. ?Vomiting. ?Bloating. ?Constipation. ?Diarrhea. ?Abdominal pain. You have difficulty with urination, such as: ?Inability to control when you urinate (incontinence). ?Inability to completely empty the bladder (retention). You feel as if your heart is racing (palpitations). You feel dizzy, weak, or faint when you stand up. Get help right away if: You cannot urinate. You have sudden weakness or loss of coordination. You have trouble speaking. You have pain or pressure in your chest. You have an irregular heartbeat. You have sudden inability to move a part of your body. These symptoms may represent a serious problem that is an emergency. Do not wait to see if the symptoms will go away. Get medical help right away. Call your local emergency services (911 in the [place] Do not drive yourself to the hospital. Summary Diabetic neuropathy is nerve damage that is caused by diabetes. It can cause numbness and pain in the arms, legs, digestive tract, heart, and other body systems. This condition is treated by keeping your blood glucose level and your A1C level within your target range. This can help prevent neuropathy from getting worse. Check your skin and feet every day for cuts, bruises, redness, blisters, or sores. Do not use any products that contain nicotine or tobacco, such as cigarettes, e-cigarettes, and chewing tobacco. This information is not intended to replace advice given to you by your health care provider. Make sure you discuss any questions you have with your health care provider. Document Revised: 12/17/2020 Document Reviewed: 12/17/2020 [employer] Content Patient Education 2023 [employer]. Follow Up Care 12/20/2024 13:30:13 With:KAYLA SWEENEY Address: [address], [address] [place] [address]- Business (1) When: Unknown Comments:Follow as scheduled in December 2024 With:Mounika Brooke Address: [place] [address]- Business (1) When:7 to 10 days Comments:Call for followup appointment [facility] 12-21-2024 Note Discharge Summary Admission and Discharge Information Admitting Physician - Toni Gutierrez III, DO Admitting Diagnoses: Hypertension, 12/21/2024 Discharge Order Date Discharge with Home Health - Ordered -- 12/21/24 14:27:00 EDT Discharge Diagnoses 1. Hyperglycemia, 12/20/2024 2. Leg muscle spasm, 12/20/2024 3. Noncompliance with medication regimen, 12/20/2024 4. AMY (acute kidney injury), 12/20/2024 5. Acquired absence of other right toe(s), 12/20/2024 6. Hyponatremia, 12/20/2024 7. Obesity, 12/20/2024 8. Diabetes mellitus with neuropathy, 12/21/2024 9. Long-term insulin use, 12/21/2024 Hyperglycemia, 12/20/2024 Hypertension, 12/21/2024 Knee pain-swelling, 12/20/2024 Procedure History Cataract extraction and insertion of intraocular lens (10/24/2017), Cataract extraction and insertion of intraocular lens (09/19/2017), Incision AND drainage (05/31/2017), Split-thickness skin graft (04/12/2017), surgical preparation of left foot ulceration for skin grafting with versajet and application of stravix skin graft to left foot ulcer (02/01/2017), left foot TMA with packing, partial closure (04/13/2015), delayed secondary closure of the left foot wound with VersaJet debridement as well as pulse lavage. excision of ulceration to the plantar left foot with single lobe rotation skin plasty flap for closure (04/10/2015), left transmetatarsal amputation with partial closure with iodoform gauze packing. incision and drainage of left infected foot with Pulsavac and pulse lavage (04/08/2015), aggressive wound debridement to right subfourth metatarsal head ulceration with Versa jet sharp debridement as well as application of Dermagraft (07/23/2014), left incision and drainage of foot abscess with wound cultures as well as partial fifth ray amputation with digit, left foot, with pulsed lavage (10/16/2013), Umbilical Hernia Repair. Hospital Course The patient is a 64-year-old male with past medical history of insulin-dependent type 2 diabetes, poorly controlled diabetes, CKD 3A, medication nonadherence, peripheral neuropathy, lower extremity amputations including left foot transmetatarsal amputation, partial amputation of his right 2nd and 3rd toes, and hypertension who presented to [facility], ER with chief complaint of left leg spasms. Admitted 12/20/24 with AMY, severe hyperglycemia, borderline HHS, dehydration, left leg spasm, and weakness. No confusion and did not fully meet HHS criteria. given 2L IV fluid bolus and maintenance fluids. Started on insulin regimen he states he was supposed to be taking. He states he had not taken insulin for several days, but script not filled since last Jun 2024. Strong likelihood he has not been taking any medications. Called pharmacy and he recently picked up losartan, but he says that he is not taking anything for his blood pressure and was unaware that he has hypertension. Very poor historian overall. Also had a prescription for Tradjenta that he has not picked up from his customer assistant yet. His glucose was slowly improving with insulin. He worked with PT and did well and they recommended home health PT which he was agreeable with. He was medically stable for discharge home and was very eager to discharge home on 12/21/2024. He had a methocarbamol prescription from the ER that he should continue taking as needed for muscle spasms. I suspect his muscle spasms were secondary to hyperglycemia and dehydration as they significantly improved with an improvement in his glucose and hydration. AMY pre-renal and improved to basleine with hydration. Follow-up Dr. Sweeney as scheduled December [address] Brooke in 7 to 10 days Medication changes Recommended he continue taking losartan, which I confirmed he has with [employer] [facility] Refilled glucometer, test strips, lancets???confirmed with [facility] that they can fill this and his insurance is covering it Refilled regular insulin at lower dose to prevent lows as this will likely be a new medication for him since he has not been compliant with his regimen. Previously Dr. Sweeney had prescribed 50 units 3 times daily. I prescribed 40 units every morning, 40 units in the evening and 20 units before bed. I talked to Kori and had them put the Tradjenta back for now as I did not want him to take the insulin and Tradjenta at the same time and experienced a low. I recommended to the patient that he only take the insulin, not take the Tradjenta, and follow-up with Dr. Sweeney and ultimately defer management of his diabetes to his customer assistant if he is compliant with follow-up. He voiced his understanding and was agreeable with this plan. Physical Exam Vitals & Measurements T: 36.6 ???C(Oral) TMIN: 36.5 ???C(Oral) TMAX: 36.6 ???C(Oral) HR: 80(Monitored) RR: 16 BP: 145/78 SpO2: 96% HT: 182 cm WT: 118.4 kg General: alert, no acute distress, conversational Skin: warm, dry Head: no trauma, normocephalic Neck: Trachea midline, no adenopathy, no tenderness Eye (more content not included)... [facility] Comment on above: Result Comment: Elec tronically Signed By: Toni Gutierrez III, DO\Date and Time Signed: 12/21/24 14:44 EDT 12-21-2024 Evaluation + Plan note Extrac maria guadalupe from: Title:Discharge Note Author:Carmela Gutierrez III, DO Date:12/21/24 Discharge Diet(s): Regular ( 12/21/24 14:24:00) Prescriptions Glucose Kit, See Instructions HumuLIN R Emil (Concentrated) human recombinant 500 units/mL subcutaneous solution, See Instructions, 1 refills Pen Needle 31G x 6mm, See Instructions, 1 refills Robaxin-750 oral tablet, 750 mg= 1 tab(s), Oral, TID Home gabapentin 600 mg Tab, 600 mg= 1 tab(s), Oral, TID With When Contact Information KAYLA SWEENEY [address] [place] [address]- Business (1) Additional Instructions: Follow as scheduled in December 2024 Mounika Brooke Within 7 to [address] [place] [address]- Business (1) Additional Instructions: Call for followup appointment Blood Glucose Monitoring, Adult Correction Insulin Diabetic Neuropathy Extracted from: Title:Admission H & P Author:Law aleksandar Gutierrez III, DO Date:12/20/24 The patient is a 64-year-old male with past medical history of insulin-dependent type 2 diabetes, poorly controlled diabetes, medication nonadherence, peripheral neuropathy, lower extremity amputations including left foot transmetatarsal amputation, partial amputation of his right 2nd and 3rd toes, and hypertension who presented to [facility], ER with chief complaint of left leg spasms and found to have severe hyperglycemia. Admitting for observation to rehydrate 1. Hyperglycemia (R73.9: Hyperglycemia, unspecified) Lost his insulin supplies this week. Will need a new glucometer, test strips, pen needles and possibly regular insulin pens. He is does state that he has some in his fridge though. Appears to have poor insight into his condition. Had high A1c around 11 in August 2024. Follows with Dr. Sweeney in [place] Status post 2 L IV fluid bolus Continue normal saline at 75 mL/h Restart home insulin He does not have DKA. He would meet diagnostic criteria for hyperosmolar hyperglycemic state, however, he does not have any altered mental status or confusion. Should he have any altered mental status or confusion there would be a low threshold for him initiating an insulin drip admitting to ICU. For the time being he has no confusion and is at his mental baseline and is in no distress whatsoever. No significant electrolyte abnormalities and sodium is normal when corrected for hyperglycemia. Ordered: CBC w/ Auto Diff Comprehensive Metabolic Panel Initial Hospital Care/Day Moderate 55 Minutes [id number] 2. Leg muscle spasm (M62.838: Other muscle spasm) Possibly secondary to hyperglycemia. Will correct glucose and follow Continue methocarbamol recently prescribed in ER Supportive care Physical therapy/Occupational Therapy consult. Patient reports decrease of sensation in the leg, however, on neurologic exam he had similar sensation in both legs. He had mild decrease in ankle strength on the left lower extremity. No focal neurologic deficits or signs of stroke to warrant a stroke workup at this time. 3. Noncompliance with medication regimen (Z91.148: Patient's other noncompliance with medication regimen for other reason) Thoroughly discussed importance of medication adherence. Patient voiced his understanding. 4. AMY (acute kidney injury) (N17.9: Acute kidney failure, unspecified) Baseline creatinine 1.5-1.6. Currently 1.9. IV fluid resuscitation/fluid challenge. Recheck in AM. Further nephrology workup/consideration of consult if it becomes worse. Suspect prerenal less dehydration/osmotic diuresis from hyperglycemia. Status post 2 L bolus. Continue IV fluids maintenance. 5. Acquired absence of other right toe(s) (Z89.421: Acquired absence of other right toe(s)) Chronic well-healed. 6. Hyponatremia (E87.1: Hypo-osmolality and hyponatremia) When corrected for hyperglycemia level is 134. No current management. Monitor on IV fluids. 7. Obesity (E66.9: Obesity, unspecified) BMI is around 35. Contributing to his comorbid state. Recommend weight loss. Defer to his customer assistant to ensure is well versed in therapies that could help with his diabetes and weight loss. Orders: acetaminophen, 650 mg = 2 tab(s), Tab, Oral, q6hr, Routine, Start date 12/20/24 20:00:00 EDT gabapentin, 600 mg = 1 tab(s), Tab, Oral, TID, Routine, Start date 12/20/24 22:00:00 EDT insulin regular, 50 unit(s) = 0.5 mL, Injection-Insulin, SubCutaneous, TIDAC, Routine, Start date 12/21/24 7:30:00 EDT methocarbamol, 750 mg = 1.5 tab(s), Tab, Oral, TID, Routine, Start date 12/20/24 22:00:00 EDT, 12/20/24 18:14:00 EDT ondansetron, 4 mg = 2 mL, Injection, IV Push, q6hr PRN Nausea, Routine, Start date 12/20/24 18:11:00 EDT, 12/20/24 18:11:00 EDT Sodium Chloride 0.9% intravenous solution 1,000 mL, 1,000 mL, IV, 75 mL/hr, Routine, Start date 12/20/24 18:11:00 EDT, 13.3 hour(s), Total volume (mL): 1,000, 118.4 kg, 2.45, m2 Ambulate with Assistance Below the Knee Intermittent Pneumatic Compression Device Capillary Glucose POC Cardiac Monitoring Diabetic/Calorie Control Diet Notify Provider Vital Signs Notify Provider Vital Signs Occupational Therapy Evaluate Patient, Develop a Plan of Care and Implement Plan Physical Therapy Evaluate Patient, Develop a Plan of Care and Implement Plan Precautions Resuscitation Status - Full Vital Signs Weight Full code, diabetic diet with 2000-calorie restriction, SCDs bilateral lower extremity and subcu heparin for DVT prophylaxis. Extracted from: Title:ED Note Author:Paddy Betancourt PA-C te:12/20/24 1. Hyperglycemia (R73.9: Hyp erglycemia, unspecified) 2. Leg muscle spasm (M62.838: Other muscle spasm) 3. Noncompliance with medication regimen (Z91.148: Patient's other noncompliance with medication regimen for other reason) 4. AMY (acute kidney injury) (N17.9: Acute kidney failure, unspecified) 5. Acquired absence of other right toe(s) (Z89.421: Acquired absence of other right toe(s)) 6. Hyponatremia (E87.1: Hypo-osmolality and hyponatremia) 7. Obesity (E66.9: Obesity, unspecified) Orders: diazepam, 5 mg = 1 tab(s), Tab, Oral, Once, Stop date 12/20/24 14:27:00 EDT, STAT, Start date 12/20/24 14:27:00 EDT, 12/20/24 14:27:00 EDT doxycycline, 100 mg = 1 cap(s), Oral, BID, # 20 cap(s), Refills(s) 0, Pharmacy: [id number], 183, cm, 06/23/24 13:45:00 EST, Height/Length Dosing, 143, kg, 06/23/24 13:45:00 EST, Weight Dosing insulin regular, 50 unit(s) = 0.5 mL, Injection-Insulin, SubCutaneous, Once, Stop date 12/20/24 15:33:00 EDT, STAT, Start date 12/20/24 15:33:00 EDT orphenadrine, 60 mg = 2 mL, Injection, IV Push, Once, Stop date 12/20/24 14:28:00 EDT, STAT, Start date 12/20/24 14:28:00 EDT, 12/20/24 14:28:00 EDT Sodium Chloride 0.9% intravenous solution, 1,000 mL, Soln-IV, IV, Once, Stop date 12/20/24 15:14:00 EDT, STAT, Start date 12/20/24 15:14:00 EDT, Infuse over 61, minute(s) Sodium Chloride 0.9% intravenous solution, 1,000 mL, Soln-IV, IV, Once, Stop date 12/20/24 13:48:00 EDT, STAT, Start date 12/20/24 13:48:00 EDT, Infuse over 61, minute(s) Basic Metabolic Panel Beta-hydroxybutyrate Blood Gas Art, with Lytes, Gluc, Lact CBC w/ Auto Diff ECG 12 Lead Adult ED Cardiac Monitoring ED Physician consult Hospitalist for continued care eGFR Extra Blue Tube Extra SST Tube Hepatic Function Panel Routine Capillary Glucose POC UA with Cult Rflx XR Chest Single View [facility] 05-03-2025 NoteInterdisciplinary Note - PT PT Treatment Recommendations: PT evaluation completed 12/21/24. Pt able to complete bed mobility, transfers, and gait with FWW all at CGA or less this date. Pt with L LE spasms during bed mobility and ambulation that last around 5 seconds; able to maintain balance using FWW when leg spasms occur. Pt scored on AM-PAC 6 clicks mobility assessment. Pt reports that his home environment is accessible and he has family support to visit him throughout the week. At this time, PT recommends discharge with Home Health PT to improve mobility level and reduce risk of future falls. Will continue to follow while inpatient.[facility]05-03-2025 NoteInterdisciplinary Note - OT Pt is seen this date for OT evaluation. AMPAC score: 20/24. pt presents with ability to complete functional transfers and short mobility at [facility] level with FWW for support, limited by spasms behind L knee, and decreased activity tolerance. OT to continue to follow for treatment. Recommending HH atd/c.[facility]05-02-2025 NoteHistory and Physical Chief Complaint pt. c/o L knee pain, seen here yesterday and left AMA. states he has not had insulin x 2 days d/t him not being able to find his bag of supplies. states he will stay for admission today. accu check in triage reads High. denies n/v/fever/chills. History of Present Illness The patient is a 64-year-old male with past medical history of insulin-dependent type 2 diabetes, poorly controlled diabetes, CKD 3A, medication nonadherence, peripheral neuropathy, lower extremity amputations including left foot transmetatarsal amputation, partial amputation of his right 2nd and 3rd toes, and hypertension who presented to [facility], with chief complaint of left leg spasms.He states that recently he got a insert and he is concerned about hyper excitation because he has been having muscle spasms in the back of his leg near his popliteal fossa since Monday. He got this new shoe insert the previous Monday approximately 1 week ago and has been using it since. He reports that he has increasing numbness in his left lower extremity and that he has difficulty using it. He was noted to have severe hyperglycemia with a glucose level near 800 in the ER. His sodium was low, however, uncontrolled corrected for glycemia it is normal. He has no hyperkalemia his potassium was 5. He has trace ketones in his urine. There is no acidosis. He would meet criteria for hyperosmolar hyperglycemic state, however, he has no altered mental status or confusion. He states that he follows with customer assistant Dr. Sweeney in [place]. He states that he only takes insulin, gabapentin,and recently prescribed methocarbamol. On review of his prescription fill history,, however, it appears that he was recently started on Tradjenta and losartan by Dr. Sweeney. He has a follow-up appoint with Dr. Sweeney canceled for this month. He states that he has not used his insulin since Monday as he lost the bag that he keeps his insulin supplies and including his glucometer, test strips,and needles. He states that he has extra insulin pens in his fridge available to him. He was concerned about his safety as he was having difficulty ambulation with his left leg spasms and wished to be admitted. He left AMA from the ER yesterday and at that time had a glucose level of around 1200. Has CKD 3A with a baseline creatinine of 1.5-1.6. Currently creatinine on presentation was 1.9. In the ER he was given 50 units of regular insulin, 60 mg of orphenadrine, and 2 L of IV normal saline. I did discuss with the patient that if he performed poorly with physical therapy we would likely recommend subacute rehab at a nursing facility and he stated he would refuse. He stated he would potentially consider home health, but typically he gets around very well if his leg was not botheringso much as it currently is. He denies any atypical or asymmetric swelling of his legs. Denies any recent illness. Denies any fever, chills, chest pain, shortness of breath, nausea, vomiting, diarrhea, dysuria, confusion. Review of Systems Constitutional: no fever, no chills, no sweats, moderate left lower extremity weakness with associated muscle spasm in the left popliteal fossa Respiratory: no shortness of breath, no cough, no orthopnea, no wheezing Cardiovascular: no chest pain, no palpitations, no edema Additional ROS info: Except as noted in the above Review of Systems and in the History of Present Illness all other systems have been reviewed and are negative or noncontributory. Scoring Yu Fall Risk Score: 35 (12/20/24) Physical Exam Vitals & Measurements T: 37.0 ???C(Oral) HR: 74(Monitored) RR: 16 BP: 160/85 SpO2: 93% HT: 182 cm WT: 118.4 kg General: alert, no acute distress, conversational Skin: warm, dry Head: no trauma, normocephalic Neck: Trachea midline, no adenopathy, no tenderness Eye: normal conjunctiva, sclera clear ENMT: Mildly dry oral mucosa, edentulous, on room air Cardiovascular: regular rate and rhythm, no murmur, normal peripheral perfusion Respiratory: Lungs CTA, respirations non labored Chest wall: no deformity. Gastrointestinal: soft, non distended, no tenderness, no guarding. Extremities: no deformity, no trauma, left lower extremity transmetatarsal amputation that is well-healed, right lower extremity partial amputations of 2nd and 3rd toes also well-healed. No evidence of any foot wounds or signs of cellulitis. There are some mild stasis dermatitis changes of his leftlower extremity greater than the right lower extremity. Neurological: oriented x 4, LOC appropriate for age, CN II-XII intact, motor strength equal & normal bilaterally, sensation equal & normal bilaterally, speech normal. He does have some decreased sensation of his bilateral lower legs that begins around mid calf that he reports is chronic from his diabetic neuropathy Psychiatric: cooperative, affect appropriate for age, normal judgement, normal psychiatric thoughts. Lab Results WBC: 6.2 E9/L (12/20/24 1 (more content not included)...[facility] HospitalComment on above:Result Comment: Electronically Signed By: Toni Gutierrez III, DO.br\Date and Time Signed: 12/20/24 19:04 [id number] NoteED Patient Education Note Endocrinology Hyperglycemia Hyperglycemia occurs when the level of sugar (glucose) in the blood is too high. Glucose is a type of sugar that provides the body's main source of energy. Certain hormones (insulin and glucagon) control the level of glucose in the blood. Insulin lowers blood glucose, and glucagon increases blood glucose. Hyperglycemia can result from not having enough insulin in the bloodstream, or from the bodynot responding normally to insulin. Hyperglycemia occurs most often in people who have diabetes (diabetes mellitus), but it can happen in people who do not have diabetes. It can develop quickly, and it can be life-threatening if it causes you to become severely dehydrated (diabetic ketoacidosis or hyperglycemic hyperosmolar state). Severe hyperglycemia is a medical emergency. For most people with diabetes, a blood glucose level above 240 mg/dL is considered hyperglycemia. What are the causes? If you have diabetes, hyperglycemia may be caused by: ??? Medicines that increase blood glucose or affect your diabetes control. ??? Getting less physical activity. ??? Eating more than planned. ??? Being sick or injured, having an infection, or having surgery. ??? Stress. ??? Not giving yourself enough insulin (if you are taking insulin). If you have undiagnosed diabetes, this may be the reason you have hyperglycemia. If you do not have diabetes, hyperglycemia may be caused by: ??? Certain medicines, including: ? Steroid medicines. ? Beta-blockers. ? Epinephrine. ? Thiazide diuretics. ??? Stress. ??? Having a serious illness, an infection, or surgery. ??? Diseases of the pancreas. What increases the risk? Hyperglycemia is more likely to develop in people who have risk factors for diabetes, such as: ??? Having a family member with diabetes. ??? Certain conditions in which the body's disease-fighting system (immune system) attacks itself (autoimmune disorders). ??? Being overweight or obese. ??? Having an inactive (sedentary) lifestyle. ??? Having been diagnosed with insulin resistance. ??? Having a history of prediabetes, gestational diabetes, or polycystic ovarian syndrome (PCOS). What are the signs or symptoms? Hyperglycemia may not cause any symptoms. If you do have symptoms, they may include: ??? Increased thirst. ??? Needing to urinate more often than usual. ??? Hunger. ??? Feeling very tired. ??? Blurry vision. Other symptoms may develop if hyperglycemia gets worse, such as: ??? Dry mouth. ??? Abdominal pain. ??? Loss of appetite. ??? Fruity-smelling breath. ??? Weakness. ??? Unexpected weight loss. ??? Tingling or numbness in the hands or feet. ??? Headache. ??? Cuts or bruises that are slow to heal. How is this diagnosed? Hyperglycemia is diagnosed with a blood test to measure your blood glucose level. This blood test is usually done while you are having symptoms. Your health care provider may also do a physical exam and review your medical history. You may have more tests to determine the cause of your hyperglycemia, such as: ??? A fasting blood glucose (FBG) test. You will not be allowed to eat (you will fast) for at least8 hours before a blood sample is taken. ??? An A1C blood test. This provides information about blood glucose control over the previous 2?3 months. ??? An oral glucose tolerance test (OGTT). This measures your blood glucose at two times: ? After fasting. This is your baseline blood glucose level. ? 2 hours after drinking a beverage that contains glucose. How is this treated? Treatment depends on the cause of your hyperglycemia. Treatment may include: ??? Taking medicine to regulate your blood glucose levels. If you take insulin or other diabetes medicines, your medicine or dosage may be adjusted. ??? Lifestyle changes, such as exercising more, eating healthier foods, or losing weight. ??? Treating an illness or infection. ??? Checking your blood glucose more often. ??? Stopping or reducing steroid medicines. If your hyperglycemia becomes severe and it results in diabetic ketoacidosis or hyperglycemic hyperosmolar state, you must be hospitalized and given IV fluids and IV insulin. Follow these instructions at home: General instructions ??? Take qulq-vvl-qqtduqx and prescription medicines only as told by your health care provider. ??? Do not use any products that contain nicotine or tobacco. These products include cigarettes, chewing tobacco, and vaping devices, such as e-cigarettes. If you need help quitting, ask your health care provider. ??? If you drink alcohol: ? Limit how much you have to: ? 0?1 drink a day for women who are not . ? 0?2 drinks a day for men. ? Know how much alcohol is in a drink. In the [place] one drink equals one 12 oz bottle of beer (355mL), one 5 oz glass of wine (148 mL), or one 1? oz glass of hard liquor (44 mL). ??? Learn to manage stress. If you need help with this (more content not included)...[facility]04-30-2025 History of Present illness Narrative* Mone Mcguire, PT - 12/18/2024 1:00 PM EDT Reason for Appointment [facility] from Grace Brooke MD History of Present Illness Visit number 1. Time in: 12:55 pm Time out 1:30 pm Treatment time: 35 mins; PT eval 35 mins Examination Strength assessment: R hip 3/5, L hip 3/5 R quad 3/5, L quad 3/5 R PF/DF 3-/5, L PF/DF 3-/5 Observed give-away weakness with LE testing R shoulder 4-/5, L 4-/5 R Bi/Tri 4-/5, L 4-/5 Grasp 3/5, L 3/5 Ambulates in home with a rollator, unsteady with lateral instability with changes of direction See chart notes on w/c assessment documented in this encounterNevada Regional Medical [id number] Telephone encounter Note* Telephone Encounter - Cooper Bradford - 12/10/2024 1:35 PM EDT [facility] He stopped in office to Pt is in need of a chair, there is no note added in the last office visit could that be added to the note. He should be seen next week unless he answers his phone today. [facility] [id number] Miscellaneous Notes* Telephone Encounter - Cooper Bradford - 12/10/2024 1:35 PM EDT [facility] He stopped in office to Pt is in need of a chair, there is no note added in the last office visit could that be added to the note. He should be seen next week unless he answers his phone today. documented in this encounterNevada Regional Medical [id number] History of Present illness Narrative* Mounika Brooke MD - 12/04/2024 2:00 PM EDT Images from the original note were not included. Patient: Nicole Lora : 1960 PCP: Mounika Brooke MD Nicole Lora is a 64 y.o. male presenting today for follow-up after being seen in ED. The main problem requiring evaluation was cough. The discharge summary and/or Transitional Care Management documentation was reviewed. Medication reconciliation was performed as indicated via the Raghu as Reviewed timestamp. Flowsheet Row Patient Outreach from 12/04/2024 in [facility] with Kristi Canales LPN Hospital Information ED, Hospital or Intermediate Facility Discharge? ED Patient has been contacted within 2 days of being seen in the ED Yes Diagnosis Hyperglycemic, Bronchitis Discharge Date 12/02/24 [Left AMA] Discharged To: Home Setting Discharge [facility] Engagement Call Start Time 0940 Admission Date 12/02/24 Medications Discharge medications reviewed and reconciled from hospital? Yes Is the patient having any side effects they believe may be caused by any medication additions or changes? No Does the patient have all medications ordered at discharge? Yes Nursing Interventions Nurse provided patient education Is the patient taking all medications as directed (includes completed medication regime)? Yes Nursing Interventions Nurse provided patient education Appointments Does the patient have a primary care provider? Yes [12/04 2pm] Nursing Interventions Verified appointment date/time/provider Nursing Interventions Advised patient to keep appointment, Educated on importance of keeping appointment Self Management Patient Teaching Does the patient have access to their discharge instructions? Yes Nursing Interventions Reviewed instructions with patient What is the patient's perception of their health status since discharge? Improving Is the patient/caregiver able to teach back the hierarchy of who to call/visit for symptoms/problems? PCP, Specialist, Home Health nurse, Urgent Care, ED, 911 Yes Wrap Up Wrap Up Additional Comments labs, xray of chest, fluids Review of Systems General: Denies fever, chills, VOSS or weight loss/gain CV: Denies CP, palpitations or swelling in legs GI: Denies abd pain/n/v/c/d Skin: Denies rash Neuro: Denies LH or dizziness Objective Vitals: 12/04/24 1411 BP: 120/70 Pulse: (!) 111 Temp: 97.5 F SpO2: 97% Physical Exam General: alert & oriented, NAD Head: NC/AT Oral Cavity: MMM Skin: warm, dry Heart: RRR, No m/r/g, S1S2 nml Lungs: CTA b/l Abdomen: soft, ND/NT, BS wnl Musculoskeletal: walker use Extremities: no clubbing, cyanosis or edema Neurological: nonfocal Psych: mood/affect full range Assessment/Plan Nicole was seen today for diabetes. Diagnoses and all orders for this visit: Chronic hypoxemic respiratory failure (CMS/HCC) (Primary) Acute cough Chest congestion Type 2 diabetes mellitus with hyperglycemia, with long-term current use of insulin (CMS/HCC) Long-term insulin use (CMS/HCC) Difficulty walking Leg weakness, bilateral BMI 35.0-35.9,adult Morbid obesity (CMS/HCC) Type 2 diabetes mellitus with diabetic chronic kidney disease ([facility]/HCC) Chronic kidney disease, stage 3b (HCC) ([facility]/HCC) Essential (primary) hypertension ([facility]/HCC) Acquired absence of left foot ([facility]) Reviewed ED course with pt. Encouraged pt to continue medications as prescribed. No changes in chronic medications. Encouraged continued follow up with specialists. Due to weakness and difficulty walking, discussed need for further assistance. Follow up if symptoms worsen or fail to improve. documented in this encounterNevada Regional Medical [id number] Hospital Discharge instructions Patient Education 12/02/2024 15:24:12 Acute Bronchitis, Adult Acute Bronchitis, Adult Acute bronchitis is sudden inflammation of the main airways (bronchi) that come off the windpipe (trachea) in the lungs. The swelling causes the airways to get smaller and make more mucus than normal. This can make it hard to breathe and can cause coughing or noisy breathing (wheezing). Acute bronchitis may last several weeks. The cough may last longer. Allergies, asthma, and exposureto smoke may make the condition worse. What are the causes? This condition can be caused by germs and by substances that irritate the lungs, including: Cold and flu viruses. The most common cause of this condition is the virus that causes the common cold. Bacteria. This is less common. Breathing in substances that irritate the lungs, including: ?Smoke from cigarettes and other forms of tobacco. ?Dust and pollen. ?Fumes from household cleaning products, gases, or burned fuel. ?Indoor or outdoor air pollution. What increases the risk? The following factors may make you more likely to develop this condition: A weak body's defense system, also called the immune system. A condition that affects your lungs and breathing, such as asthma. What are the signs or symptoms? Common symptoms of this condition include: Coughing. This may bring up clear, yellow, or green mucus from your lungs (sputum). Wheezing. Runny or stuffy nose. Having too much mucus in your lungs (chest congestion). Shortness of breath. Aches and pains, including sore throat or chest. How is this diagnosed? This condition is usually diagnosed based on: Your symptoms and medical history. A physical exam. You may also have other tests, including tests to rule out other conditions, such as pneumonia. These tests include: A test of lung function. Test of a mucus sample to look for the presence of bacteria. Tests to check the oxygen level in your blood. Blood tests. Chest X-ray. How is this treated? Most cases of acute bronchitis clear up over time without treatment. Your health care provider may recommend: Drinking more fluids to help thin your mucus so it is easier to cough up. Taking inhaled medicine (inhaler) to improve air flow in and out of your lungs. Using a vaporizer or a humidifier. These are machines that add water to the air to help you breathebetter. Taking a medicine that thins mucus and clears congestion (expectorant). Taking a medicine that prevents or stops coughing (cough suppressant). It is not common to take an antibiotic medicine for this condition. Follow these instructions at home: Take qyod-dgq-afvreqp and prescription medicines only as told by your health care provider. Use an inhaler, vaporizer, or humidifier as told by your health care provider. Take two teaspoons (10 mL) of honey at bedtime to lessen coughing at night. Drink enough fluid to keep your urine pale yellow. Do not use any products that contain nicotine or tobacco. These products include cigarettes, chewing tobacco, and vaping devices, such as e-cigarettes. If you need help quitting, ask your health careprovider. Get plenty of rest. Return to your normal activities as told by your health care provider. Ask your health care provider what activities are safe for you. Keep all follow-up visits. This is important. How is this prevented? To lower your risk of getting this condition again: Wash your hands often with soap and water for at least 20 seconds. If soap and water are not available, use hand tuber operator. Avoid contact with people who have cold symptoms. Try not to touch your mouth, nose, or eyes with your hands. Avoid breathing in smoke or chemical fumes. Breathing smoke or chemical fumes will make your condition worse. Get the flu shot every year. Contact a health care provider if: Your symptoms do not improve after 2 weeks. You have trouble coughing up the mucus. Your cough keeps you awake at night. You have a fever. Get help right away if you: Cough up blood. Feel pain in your chest. Have severe shortness of breath. Faint or keep feeling like you are going to faint. Have a severe headache. Have a fever or chills that get worse. These symptoms may represent a serious problem that is an emergency. Do not wait to see if the symptoms will go away. Get medical help right away. Call your local emergency services (911 in the [place] Do not drive yourself to the hospital. Summary Acute bronchitis is inflammation of the main airways (bronchi) that come off the windpipe (trachea)in the lungs. The swelling causes the airways to get smaller and make more mucus than normal. Drinking more fluids can help thin your mucus so it is easier to cough up. Take gvgc-tfu-tapeyxk and prescription medicines only as told by your health care provider. Do not use any products that contain nicotine or tobacco. These products include cigarettes, chewing tobacco, and vaping devices, such as e-cigarettes. If you need help quitting, ask your health careprovider. Contact a health care provider if your symptoms do not improve after 2 weeks. This information is not intended to replace advice given to you by your health care provider. Make sure you discuss any questions you have with your health care provider. Document Revised: 11/17/2022 Document Reviewed: 12/08/2021 Get Smart Content Patient Education 2023 [employer]. 12/02/2024 15:24:12 Type 2 Diabetes Mellitus, Self-Care, Adult, Cmps-gg-[id number] Type 2 Diabetes Mellitus, Self-Care, Adult When you have type 2 diabetes (type 2 diabetes mellitus), you must make sure your blood sugar (glucose) stays in a healthy range. You can do this with: Nutrition. Exercise. Lifestyle changes. Medicines or insulin, if needed. Support from your doctors and others. What are the risks? Having type 2 diabetes can raise your risk for other long-term (chronic) health problems. You may get medicines to help prevent these problems. How to stay aware of your blood sugar Check your blood sugar level every day, as often as told. Have your A1C (hemoglobin A1C) level checked two or more times a year. Have it checked more often if told. Your doctor will set personal treatment goals for you. In general, you should have these blood sugar levels: ?Before meals: 80 130 mg/dL (4.4 7.2 mmol/L). ?After meals: below 180 mg/dL (10 mmol/L). ?A1C: less than 7%. How to manage high and low blood sugar Symptoms of high blood sugar High blood sugar is also called hyperglycemia. Know the symptoms of high blood sugar. These may include: More thirst. Hunger. Feeling very tired. Needing to pee (urinate) more often than normal. Seeing things blurry. Symptoms of low blood sugar Low blood sugar is also called hypoglycemia. This is when blood sugar is at or below 70 mg/dL (3.9 mmol/L). Symptoms may include: Hunger. Feeling worried or nervous (anxious). Feeling sweaty and cold to the touch (clammy). Being dizzy or light-headed. Feeling sleepy. A fast heartbeat. Feeling grouchy (irritable). Tingling or loss of feeling (numbness) around your mouth, lips, or tongue. Restless sleep. Diabetes medicines can cause low blood sugar. You are more at risk: While you exercise. After exercise. During sleep. When you are sick. When you skip meals or do not eat for a long time. Treating low blood sugar If you think you have low blood sugar, eat or drink something sugary right away. Keep 15 grams of afast-acting carb (carbohydrate) with you all the time. Make sure your family and friends know how to treat you if you cannot treat yourself. Treating very low blood sugar Severe hypoglycemia is when your blood sugar is at or below 54 mg/dL (3 mmol/L). Severe hypoglycemia is an emergency. Get medical help right away. Call your local emergency services (911 in the [place] ?Do not wait to see if the symptoms will go away. ?Do not drive yourself to the hospital. You may need a glucagon shot if you have very low blood sugar and you cannot eat or drink. Have a family member or friend learn how to check your blood sugar and how to give you a glucagon shot. Ask your doctor if you should have a kit for glucagon shots. Follow these instructions at home: Medicines Take prescribed insulin or diabetes medicines as told by your health care provider. Do not run out of insulin or other medicines. Plan ahead. If you use insulin, change the amount you take based on how active you are and what foods you eat. Your doctor will tell you how to do this. Take gzgw-bhx-mvaeopg and prescription medicines only as told by your doctor. Eating and drinking Eat healthy foods. These include: ?Low-fat (lean) proteins. ?Complex carbs, such as whole grains. ?Fresh fruits and vegetables. ?Low-fat dairy products. ?Healthy fats. Meet with a food expert (dietitian) to make an eating plan. Follow instructions from your doctor about what you cannot eat or drink. Drink enough fluid to keep your pee (urine) pale yellow. Keep track of carbs that you eat. Read food labels and learn serving sizes of foods. Follow your sick-day plan when you cannot eat or drink as normal. Make this plan with your doctor so it is ready to use. Activity Exercise as told by your doctor. You may need to: ?Do stretching and strength exercises two or more times a week. ?Do 150 minutes or more of exercise each week that makes your heart beat faster and makes you sweat. ?Spread out your exercise over 3 or more days a week. ?Do not go more than 2 days in a row without exercise. Talk with your doctor before you start a new exercise. Your doctor may tell you to change: ?How much insulin or medicines you take. ?How much food you eat. Lifestyle Do not smoke or use any products that contain nicotine or tobacco. If you need help quitting, ask your doctor. If you drink alcohol and your doctor says that it is safe for you: ?Limit how much you have to: ?0 1 drink a day for women who are not . ?0 2 drinks a day for men. ?Know how much alcohol is in your drink. In the [place] one drink equals one 12 oz bottle of beer (355 mL), one 5 oz glass of wine (148 mL), or one 1 oz glass of hard liquor (44 mL). Learn to deal with stress. If you need help, ask your doctor. Body care Stay up to date with your shots (immunizations). Have your eyes and feet checked by a doctor as often as told. Check your skin and feet every day. Check for cuts, bruises, redness, blisters, or sores. Teague your teeth and gums two times a day. Floss one or more times a day. Go to the dentist one or more times every 6 months. Stay at a healthy weight. General instructions Share your diabetes care plan with: ?Your work or school. ?People you live with. Carry a card or wear jewelry that says you have diabetes. Keep all follow-up visits. Questions to ask your doctor Do I need to meet with a certified expert in diabetes education and care? Where can I find a support group? Where to find more information For help and guidance and more information about diabetes, please go to: [place] [employer]: www.diabetes.org [place] [employer] Education [employer]: www.diabeteseducator.org International Diabetes Federation: www.idf.org Summary When you have type 2 diabetes, you must make sure your blood sugar (glucose) stays in a healthy range. You can do this with nutrition, exercise, medicines and insulin, and support from doctors and others. Check your blood sugar every day, or as often as told. Having diabetes can raise your risk for other long-term health problems. You may get medicines to help prevent these problems. Share your diabetes management plan with people at work, school, and home. Keep all follow-up visits. This information is not intended to replace advice given to you by your health care provider. Make sure you discuss any questions you have with your health care provider. Document Revised: 11/01/2021 Document Reviewed: 11/01/2021 Get Smart Content Patient Education 2023 [employer]. 12/02/2024 15:24:12 Hyperglycemia Hyperglycemia Hyperglycemia occurs when the level of sugar (glucose) in the blood is too high. Glucose is a type of sugar that provides the body's main source of energy. Certain hormones (insulin and glucagon) control the level of glucose in the blood. Insulin lowers blood glucose, and glucagon increases blood glucose. Hyperglycemia can result from not having enough insulin in the bloodstream, or from the bodynot responding normally to insulin. Hyperglycemia occurs most often in people who have diabetes (diabetes mellitus), but it can happen in people who do not have diabetes. It can develop quickly, and it can be life-threatening if it causes you to become severely dehydrated (diabetic ketoacidosis or hyperglycemic hyperosmolar state). Severe hyperglycemia is a medical emergency. For most people with diabetes, a blood glucose level above 240 mg/dL is considered hyperglycemia. What are the causes? If you have diabetes, hyperglycemia may be caused by: Medicines that increase blood glucose or affect your diabetes control. Getting less physical activity. Eating more than planned. Being sick or injured, having an infection, or having surgery. Stress. Not giving yourself enough insulin (if you are taking insulin). If you have undiagnosed diabetes, this may be the reason you have hyperglycemia. If you do not have diabetes, hyperglycemia may be caused by: Certain medicines, including: ?Steroid medicines. ?Beta-blockers. ?Epinephrine. ?Thiazide diuretics. Stress. Having a serious illness, an infection, or surgery. Diseases of the pancreas. What increases the risk? Hyperglycemia is more likely to develop in people who have risk factors for diabetes, such as: Having a family member with diabetes. Certain conditions in which the body's disease-fighting system (immune system) attacks itself (autoimmune disorders). Being overweight or obese. Having an inactive (sedentary) lifestyle. Having been diagnosed with insulin resistance. Having a history of prediabetes, gestational diabetes, or polycystic ovarian syndrome (PCOS). What are the signs or symptoms? Hyperglycemia may not cause any symptoms. If you do have symptoms, they may include: Increased thirst. Needing to urinate more often than usual. Hunger. Feeling very tired. Blurry vision. Other symptoms may develop if hyperglycemia gets worse, such as: Dry mouth. Abdominal pain. Loss of appetite. Fruity-smelling breath. Weakness. Unexpected weight loss. Tingling or numbness in the hands or feet. Headache. Cuts or bruises that are slow to heal. How is this diagnosed? Hyperglycemia is diagnosed with a blood test to measure your blood glucose level. This blood test is usually done while you are having symptoms. Your health care provider may also do a physical exam and review your medical history. You may have more tests to determine the cause of your hyperglycemia, such as: A fasting blood glucose (FBG) test. You will not be allowed to eat (you will fast) for at least 8 hours before a blood sample is taken. An A1C blood test. This provides information about blood glucose control over the previous 2 3 months. An oral glucose tolerance test (OGTT). This measures your blood glucose at two times: ?After fasting. This is your baseline blood glucose level. ?2 hours after drinking a beverage that contains glucose. How is this treated? Treatment depends on the cause of your hyperglycemia. Treatment may include: Taking medicine to regulate your blood glucose levels. If you take insulin or other diabetes medicines, your medicine or dosage may be adjusted. Lifestyle changes, such as exercising more, eating healthier foods, or losing weight. Treating an illness or infection. Checking your blood glucose more often. Stopping or reducing steroid medicines. If your hyperglycemia becomes severe and it results in diabetic ketoacidosis or hyperglycemic hyperosmolar state, you must be hospitalized and given IV fluids and IV insulin. Follow these instructions at home: General instructions Take sexv-bbl-naommdu and prescription medicines only as told by your health care provider. Do not use any products that contain nicotine or tobacco. These products include cigarettes, chewing tobacco, and vaping devices, such as e-cigarettes. If you need help quitting, ask your health careprovider. If you drink alcohol: ?Limit how much you have to: ?0 1 drink a day for women who are not . ?0 2 drinks a day for men. ?Know how much alcohol is in a drink. In the [place] one drink equals one 12 oz bottle of beer (355 mL), one 5 oz glass of wine (148 mL), or one 1 oz glass of hard liquor (44 mL). Learn to manage stress. If you need help with this, ask your health care provider. Do exercises as told by your health care provider. Keep all follow-up visits. This is important. Eating and drinking Maintain a healthy weight. Stay hydrated, especially when you exercise, get sick, or spend time in hot temperatures. Drink enough fluid to keep your urine pale yellow. If you have diabetes: Know the symptoms of hyperglycemia. Follow your diabetes management plan as told by your health care provider. Make sure you: ?Take your insulin and medicines as told. ?Follow your exercise plan. ?Follow your meal plan. Eat on time, and do not skip meals. ?Check your blood glucose as often as told. Make sure to check your blood glucose before and after exercise. If you exercise longer or in a different way, check your blood glucose more often. ?Follow your sick day plan whenever you cannot eat or drink normally. Make this plan in advance with your health care provider. Share your diabetes management plan with people in your workplace, school, and household. Check your urine for ketones when you are ill and as told by your health care provider. Carry a medical alert card or wear medical alert jewelry. Where to find more information [place] [employer]: www.diabetes.org Contact a health care provider if: Your blood glucose is at or above 240 mg/dL (13.3 mmol/L) for 2 days in a row. You have problems keeping your blood glucose in your target range. You have frequent episodes of hyperglycemia. You have signs of illness, such as nausea, vomiting, or fever. Get help right away if: Your blood glucose monitor reads high even when you are taking insulin. You have trouble breathing. You have a change in how you think, feel, or act (mental status). You have nausea or vomiting that does not go away. These symptoms may represent a serious problem that is an emergency. Do not wait to see if the symptoms will go away. Get medical help right away. Call your local emergency services (911 in the [place] Do not drive yourself to the hospital. Summary Hyperglycemia occurs when the level of sugar (glucose) in the blood is too high. Hyperglycemia can happen with or without diabetes, and severe hyperglycemia can be life-threatening. Hyperglycemia is diagnosed with a blood test to measure your blood glucose level. This blood test is usually done while you are having symptoms. Your health care provider may also do a physical exam and review your medical history. If you have diabetes, follow your diabetes management plan as told by your health care provider. Contact your health care provider if you have problems keeping your blood glucose in your target range. This information is not intended to replace advice given to you by your health care provider. Make sure you discuss any questions you have with your health care provider. Document Revised: 05/20/2021 Document Reviewed: 05/21/2021 Get Smart Content Patient Education 2023 [employer]. Follow Up Care 12/02/2024 12:36:28 With:Mounika Brooke Address: [address] [place] [address]- [facility] (1) When:12/05/2024 15:08:13 Comments:Call for diagnosis based follow up [facility] 04-14-2025 NoteED Patient Education Note Endocrinology Type 2 Diabetes Mellitus, Self-Care, Adult When you have type 2 diabetes (type 2 diabetes mellitus), you must make sure your blood sugar (glucose) stays in a healthy range. You can do this with: ??? Nutrition. ??? Exercise. ??? Lifestyle changes. ??? Medicines or insulin, if needed. ??? Support from your doctors and others. What are the risks? Having type 2 diabetes can raise your risk for other long-term (chronic) health problems. You may get medicines to help prevent these problems. How to stay aware of your blood sugar ??? Check your blood sugar level every day, as often as told. ??? Have your A1C (hemoglobin A1C) level checked two or more times a year. Have it checked more often if told. ??? Your doctor will set personal treatment goals for you. In general, you should have these blood sugar levels: ? Before meals: 80?130 mg/dL (4.4?7.2 mmol/L). ? After meals: below 180 mg/dL (10 mmol/L). ? A1C: less than 7%. How to manage high and low blood sugar Symptoms of high blood sugar High blood sugar is also called hyperglycemia. Know the symptoms of high blood sugar. These may include: ??? More thirst. ??? Hunger. ??? Feeling very tired. ??? Needing to pee (urinate) more often than normal. ??? Seeing things blurry. Symptoms of low blood sugar Low blood sugar is also called hypoglycemia. This is when blood sugar is at or below 70 mg/dL (3.9 mmol/L). Symptoms may include: ??? Hunger. ??? Feeling worried or nervous (anxious). ??? Feeling sweaty and cold to the touch (clammy). ??? Being dizzy or light-headed. ??? Feeling sleepy. ??? A fast heartbeat. ??? Feeling grouchy (irritable). ??? Tingling or loss of feeling (numbness) around your mouth, lips, or tongue. ??? Restless sleep. Diabetes medicines can cause low blood sugar. You are more at risk: ??? While you exercise. ??? After exercise. ??? During sleep. ??? When you are sick. ??? When you skip meals or do not eat for a long time. Treating low blood sugar If you think you have low blood sugar, eat or drink something sugary right away. Keep 15 grams of afast-acting carb (carbohydrate) with you all the time. Make sure your family and friends know how to treat you if you cannot treat yourself. Treating very low blood sugar Severe hypoglycemia is when your blood sugar is at or below 54 mg/dL (3 mmol/L). ??? Severe hypoglycemia is an emergency. Get medical help right away. Call your local emergency services (911 in the [place] ? Do not wait to see if the symptoms will go away. ? Do not drive yourself to the hospital. You may need a glucagon shot if you have very low blood sugar and you cannot eat or drink. Have a family member or friend learn how to check your blood sugar and how to give you a glucagon shot. Ask your doctor if you should have a kit for glucagon shots. Follow these instructions at home: Medicines ??? Take prescribed insulin or diabetes medicines as told by your health care provider. ??? Do not run out of insulin or other medicines. Plan ahead. ??? If you use insulin, change the amount you take based on how active you are and what foods you eat. Your doctor will tell you how to do this. ??? Take qziv-uzb-acbxbup and prescription medicines only as told by your doctor. Eating and drinking ??? Eat healthy foods. These include: ? Low-fat (lean) proteins. ? Complex carbs, such as whole grains. ? Fresh fruits and vegetables. ? Low-fat dairy products. ? Healthy fats. ??? Meet with a food expert (dietitian) to make an eating plan. ??? Follow instructions from your doctor about what you cannot eat or drink. ??? Drink enough fluid to keep your pee (urine) pale yellow. ??? Keep track of carbs that you eat. Read food labels and learn serving sizes of foods. ??? Follow your sick-day plan when you cannot eat or drink as normal. Make this plan with your doctor so it is ready to use. Activity ??? Exercise as told by your doctor. You may need to: ? Do stretching and strength exercises two or more times a week. ? Do 150 minutes or more of exercise each week that makes your heart beat faster and makes you sweat. ? Spread out your exercise over 3 or more days a week. ? Do not go more than 2 days in a row without exercise. ??? Talk with your doctor before you start a new exercise. Your doctor may tell you to change: ? How much insulin or medicines you take. ? How much food you eat. Lifestyle ??? Do not smoke or use any products that contain nicotine or tobacco. If you need help quitting, ask your doctor. ??? If you drink alcohol and your doctor says that it is safe for you: ? Limit how much you have to: ? 0?1 drink a day for women who are not . ? 0?2 drinks a day for men. ? Know how much alcohol is in your drink. In the [place] one drink equals one 12 oz bottle of beer (355 mL), one 5 oz (more content not included)...[facility]01-15-2025 History of Present illness Narrative* Kayla Sweeney MD - 09/04/2024 2:10 PM EST Nicole Lora is a 64 y.o. male No ref. provider found presents with chief complaint of No chief complaint on file. HPI: IM 08/2024 follow up visit on 09/04/2024 bg 406, A1c 12.9 , on U-500 50 units am and 30 units pm. IM 06/2024 follow up visit on 07/15/2024 bg 243, A1c >14.1 ON , on Toujeo to 20 units bid; NovoLog to 15-18-20 as a base, plus scale #3 ?, Jentadueto 2.12/999 mg twice a day. IM 01/2024 follow up visit on 01/24/2024 bg 407, A1c 12.4 on Toujeo to 25 units bid; NovoLog to 15-18-20 as a base, plus scale #3, Jentadueto 2.12/999 mg twice a day. IM :07/2023 follow up visit on 08/10/2023 bg 192, on Toujeo to 45 units at bedtime; NovoLog to 15-18-20 as a base, plus scale #3, Jentadueto 2.12/999 mg twice a day, no new lab HPI: 06/2023 New patient came by himself after he left the hospital. He has had diabetes for a longtime. He had a left transmetatarsal amputation in 2011. Currently the meter is 0 in low range; 28 in good range; 72 in high range; average 285. Currently he is on Jentadueto 2.12/999 mg twice a day and Toujeo 35 twice a day and NovoLog average 30 units once or twice a day. Blood sugar in our [id number]; A1C 11. SUBJECTIVE: MEDICATIONS: Current Outpatient Medications Medication Instructions albuterol HFA 90 mcg/act inhaler 2 puffs, Every 4 hours PRN amLODIPine (Norvasc) 10 MG tablet 1 tablet, Daily atorvastatin (LIPITOR) 40 mg, Every 24 hours Continuous Blood Gluc Roving Department Supervisor (FreeStyle Sage 3 [place]) device 1 each, Does not apply, Continuous Continuous Blood Gluc Sensor (FreeStyle Sage 3 Sensor) misc 1 each, Does not apply, Every 14 days doxycycline (VIBRAMYCIN) 100 mg, 2 times daily DULoxetine (CYMBALTA) 60 mg, Daily Fiasp FlexTouch 100 UNIT/ML injection inject PLUS ISS #2 (EXPECT DAILY DOSE OF 80 UNITS) gabapentin (NEURONTIN) 600 mg, Oral, 3 times daily guaiFENesin (MUCINEX) 1,200 mg, 2 times daily HumuLIN R U-500 KWIKPEN 50 Units, Subcutaneous, 3 times daily hydrALAZINE (APRESOLINE) 10 mg, Every 12 hours linaGLIPtin (TRADJENTA) 5 mg, Oral, Daily lisinopril-hydroCHLOROthiazide 20-25 MG tablet 1 tablet, Daily losartan (COZAAR) 100 mg, Daily methylPREDNISolone (Medrol Dospak) 4 MG tablets Follow schedule on package instructions Misc. Devices (Cane) misc 1 each, Does not apply, Continuous OneTouch Verio test strip 1 each, 3 times daily oxyCODONE-acetaminophen (Percocet) 5-325 MG tablet pen needle 31G x 8 mm misc Use as instructed potassium chloride ER (Micro-K) 10 MEQ ER capsule 10 mEq, Daily rOPINIRole (REQUIP) 2 mg, Oral, Nightly Symbicort 160-4.5 MCG/ACT inhaler 2 puffs, 2 times daily torsemide (DEMADEX) 60 mg, 3 times daily ALLERGIES: Allergies Allergen Reactions Penicillins Rash Penicillamine Unknown Past Medical History: Diagnosis Date Acute hypoxemic respiratory failure ([facility]) Acute on chronic respiratory failure with hypercapnia ([facility]) AMY (acute kidney injury) ([facility]) Arthritis Asthma ([facility]) Cataract Chronic kidney disease, stage 3b (HCC) ([facility]) Diabetes ([facility]) Diabetes mellitus with neuropathy ([facility]) Dietary counseling and surveillance Dry eyes GERD (gastroesophageal reflux disease) Hypertension ([facility]) Lymphedema of both lower extremities 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 ([facility]) Morbid obesity with body mass index (BMI) of 40.0 to 49.9 ([facility]) Onychomycosis P[place] 06[place]19/20[place] [facility] [place] disease) Type 2 diabetes mellitus with hyperglycemia ([facility]) Vitamin D deficiency, unspecified Past Surgical History: Procedure Laterality Date AMPUTATION Left foot CATARACT EXTRACTION HERNIA REPAIR TOE SURGERY 2016 REVIEW OF SYMPTOMS: Diet and exercise reviewed with the patient OBJECTIVE: Constitutional: Afebrile @ home; no weakness or night sweats SKIN: No change in skin color; no itching, rash or lesions; no hair loss; HEENT: No HAs or injury; no dizziness; No difficulty with vision; no eye pain, discharge or lesions; no hearing loss or difficulty; no nasal discharge, NECK: No pain, limitation of motion, lumps or swollen glands RESP: No cough, wheezing or difficulty breathing. No CP with breathing; CARDIO: No CP , SOB or fatigue, No edema, palpitations or dyspnea with exertion GI: No N/V/D or abd. pain; good appetite with no recent change. No heart burn, liver or gallbladderdisease; no rectal bleeding or pain : No urinary pain , frequency or odor. MUSCULOSKELETAL: No muscle pain or cramps; no extremity weakness.No joint pain, stiffness, swellingor limitation of movement NEUROLOGY: No H/O seizures, stroke or fainting. No weakness, tremors. Hematology: No bleeding problems or excessive bruising ENDOCRINE: No increase in hunger, thirst or urination; admits compliance to medical management plan Feet: left metatarsal amputation Lab Results Component Value Date HGBA1C 12.9 09/04/2024 HGBA1C >14.0 (H) 06/21/2024 Lab Results Component Value Date GLU 406 09/04/2024 GLU 243 07/15/2024 GLU 355 (H) 12/07/2023 Visit Vitals BP 116/66 Pulse 80 Resp 18 Ht 5' 11 Wt 280 lb BMI 39.05 kg/m Smoking Status Never BSA 2.52 m ASSESSMENT AND PLAN: Assessment/Plan Diagnoses and all orders for this visit: Type 2 diabetes mellitus with hyperglycemia, with long-term current use of insulin (CMS/HCC) - POCT glucose manually resulted - POCT glycosylated hemoglobin (Hb A1C) docked device - gabapentin (Neurontin) 600 MG tablet; Take 1 tablet (600 mg) by mouth in the morning and 1 tablet(600 mg) in the evening and 1 tablet (600 mg) before bedtime. - linaGLIPtin (Tradjenta) 5 MG tablet; Take 1 tablet (5 mg) by mouth Daily - C-peptide; Future - Vitamin D 25 hydroxy Total; Future - Microalbumin / creatinine urine ratio; Future - Lipid panel; Future - Renal function panel; Future We will increase U500 to 50 units in the morning, 50 at lunch, 30 at supper, start Tradjenta 5 mg once a day. Increase gabapentin to 600 3 times a day. Insulin long-term use (CMS/HCC) Vitamin D deficiency Encounter for dietary consultation Diet and exercise reviewed with the patient Hyperlipemia, mixed (CMS/HCC) Primary hypertension (CMS/HCC) Follow up in about 3 months (around 12/03/2024). documented in this encounterNevada Regional Medical [id number] Telephone encounter Note* Telephone Encounter - Mounika Brooke MD - 08/06/2024 10:26 AM EST Ok to send [facility] [id number] Miscellaneous Notes* Telephone Encounter - Mounika Brooke MD - 08/06/2024 10:26 AM EST Ok to send * Telephone Encounter - Cooper Bradford - 08/06/2024 8:48 AM EST [facility] called they need this information sent for to them for the Referral on the Hyperbaric Oxygen Treatment A1C, pvr, and last 30day of notes on the wound Please send to fax [phone] to [facility] documented in this encounterNevada Regional Medical [id number] Telephone encounter Note* Telephone Encounter - Cooper Bradford - 08/06/2024 8:48 AM EST [facility] called they need this information sent for to them for the Referral on the Hyperbaric Oxygen Treatment A1C, pvr, and last 30day of notes on the wound Please send to fax [phone] to [place] [id number] NoteTime Out 07/22/2024. 3:03 PM. Confirmed correct patient, procedure, site, and patient consented. Anesthesia Topical anesthesia was used. Anesthetic medications included Proparacaine 0.5%. Procedure Preparation included 5% betadine to ocular surface. A 30 gauge needle was used. Injection: 0.3 mg ranibizumab 0.3 MG/0.05ML Route: Intravitreal, Site: Left Eye [facility]: 31060-362-10, Lot: [id number], Expiration date: 04/29/2026, Waste: 0 mL Post-op Post injection exam found visual acuity of at least counting fingers. The patient tolerated the procedure well. There were no complications. The patient received written and verbal post procedure care education. Post injection medications were not given. Notes Intravitreal Lucentis: Risks, benefits and alternatives were discussed for Intravitreal meds. With intraocular surgery, there is potential for direct retinal damage through retinal or RPE tear, or infection, with subsequent vision loss. Informative Intravitreal pamphlet provided as well as OMIC consent. Of course, the treatment may fail to accomplish the overall therapeutic objectives, which is to stall or decrease the amount of retinal edema / bleeding, and therefore stall or improve vision loss. Intravitreal Anti-VEGF: Consent was obtained and questions answered. Operative eye was identified, receiving topical proparacaine, 5% betadine, and 2% xylocaine jelly. A lid speculum was placed and the superotemporal injection site received additional anesthetic with a proparacaine soaked cotton swab. Using calipers (set at 3.5mm for pseudo and 4mm for phakic), the superotemporal limbus was measured, sclera marked and 2 additional drops of betadine placed. Avoiding any talking to avoid contamination, intravitreal injection was carried out without difficulty. Any residual amount of medication was discarded appropriately. The patient tolerated the procedure well and instructed to call with increased pain, redness, decreased vision or concerns.[facility] [id number] History of Present illness Narrative* Perlita Meeks MD - 07/22/2024 2:15 PM EST Assessment/Plan documented in this encounterNevada Regional Medical [id number] History of Present illness Narrative* Kayla Sweeney MD - 07/15/2024 1:40 PM EST Nicole Lora is a 64 y.o. male Kayla Sweeney MD presents with chief complaint of Diabetes and Follow-up (06/21/2024 A1C 14%) HPI: IM 06/2024 follow up visit on 07/15/2024 bg 243, A1c >14.1 ON , on Toujeo to 20 units bid; NovoLog to 15-18-20 as a base, plus scale #3 ?, Jentadueto 2.12/999 mg twice a day. IM 01/2024 follow up visit on 01/24/2024 bg 407, A1c 12.4 on Toujeo to 25 units bid; NovoLog to 15-18-20 as a base, plus scale #3, Jentadueto 2.12/999 mg twice a day. IM :07/2023 follow up visit on 08/10/2023 bg 192, on Toujeo to 45 units at bedtime; NovoLog to 15-18-20 as a base, plus scale #3, Jentadueto 2.12/999 mg twice a day, no new lab HPI: 06/2023 New patient came by himself after he left the hospital. He has had diabetes for a longtime. He had a left transmetatarsal amputation in 2011. Currently the meter is 0 in low range; 28 in good range; 72 in high range; average 285. Currently he is on Jentadueto 2.12/999 mg twice a day and Toujeo 35 twice a day and NovoLog average 30 units once or twice a day. Blood sugar in our [id number]; A1C 11. SUBJECTIVE: MEDICATIONS: Current Outpatient Medications Medication Instructions albuterol HFA 90 mcg/act inhaler 2 puffs, Every 4 hours PRN atorvastatin (LIPITOR) 40 mg, Every 24 hours Continuous Blood Gluc Roving Department Supervisor (FreeStyle Sage 3 [place]) device 1 each, Does not apply, Continuous Continuous Blood Gluc Sensor (FreeStyle Sage 3 Sensor) misc 1 each, Does not apply, Every 14 days doxycycline (VIBRAMYCIN) 100 mg, 2 times daily DULoxetine (CYMBALTA) 60 mg, Daily Fiasp FlexTouch 100 UNIT/ML injection inject PLUS ISS #2 (EXPECT DAILY DOSE OF 80 UNITS) gabapentin (NEURONTIN) 600 mg, Oral, 2 times daily guaiFENesin (MUCINEX) 1,200 mg, 2 times daily HumuLIN R U-500 KWIKPEN 50 Units, Subcutaneous, 3 times daily hydrALAZINE (APRESOLINE) 10 mg, Every 12 hours lisinopril-hydroCHLOROthiazide 20-25 MG tablet 1 tablet, Daily losartan (COZAAR) 100 mg, Daily methylPREDNISolone (Medrol Dospak) 4 MG tablets Follow schedule on package instructions Misc. Devices (Cane) misc 1 each, Does not apply, Continuous oxyCODONE-acetaminophen (Percocet) 5-325 MG tablet TAKE 1 TABLET BY MOUTH EVERY 6 HOURS FOR 3 DAYS NEEDED FOR PAIN pen needle 31G x 8 mm misc Use as instructed potassium chloride ER (Micro-K) 10 MEQ ER capsule 10 mEq, Daily rOPINIRole (REQUIP) 2 mg, Oral, Nightly Symbicort 160-4.5 MCG/ACT inhaler 2 puffs, 2 times daily torsemide (DEMADEX) 60 mg, 3 times daily ALLERGIES: Allergies Allergen Reactions Penicillins Rash Penicillamine Unknown Past Medical History: Diagnosis Date Acute hypoxemic respiratory failure ([facility]) Acute on chronic respiratory failure with hypercapnia ([facility]) AMY (acute kidney injury) ([facility]) Arthritis Asthma ([facility]) Cataract Chronic kidney disease, stage 3b (HCC) ([facility]) Diabetes ([facility] Diabetes mellitus with neuropathy ([facility]) Dry eyes GERD (gastroesophageal reflux disease) Hypertension ([facility]) Lymphedema of both lower extremities 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 ([facility]) Onychomycosis Pneumonia 06[place]19/20[place] [facility] [place]pulmonary [place] disease) Past Surgical History: Procedure Laterality Date AMPUTATION CATARACT EXTRACTION HERNIA REPAIR TOE SURGERY 2016 REVIEW OF SYMPTOMS: Diet and exercise reviewed with the patient OBJECTIVE: Constitutional: Afebrile @ home; no weakness or night sweats SKIN: No change in skin color; no itching, rash or lesions; no hair loss; HEENT: No HAs or injury; no dizziness; No difficulty with vision; no eye pain, discharge or lesions; no hearing loss or difficulty; no nasal discharge, NECK: No pain, limitation of motion, lumps or swollen glands RESP: No cough, wheezing or difficulty breathing. No CP with breathing; CARDIO: No CP , SOB or fatigue, No edema, palpitations or dyspnea with exertion GI: No N/V/D or abd. pain; good appetite with no recent change. No heart burn, liver or gallbladderdisease; no rectal bleeding or pain : No urinary pain , frequency or odor. MUSCULOSKELETAL: No muscle pain or cramps; no extremity weakness.No joint pain, stiffness, swellingor limitation of movement NEUROLOGY: No H/O seizures, stroke or fainting. No weakness, tremors. Hematology: No bleeding problems or excessive bruising ENDOCRINE: No increase in hunger, thirst or urination; admits compliance to medical management plan Feet: numbness tingling yes , ulcers or skin break no Lab Results Component Value Date HGBA1C >14.0 (H) 06/21/2024 Lab Results Component Value Date GLU 243 07/15/2024 GLU 355 (H) 12/07/2023 GLU 203 (A) 10/28/2023 Visit Vitals BP 120/58 Pulse 81 Resp 18 Ht 5' 11 Wt 274 lb BMI 38.22 kg/m Smoking Status Never BSA 2.49 m ASSESSMENT AND PLAN: Assessment/Plan Diagnoses and all orders for this visit: Type 2 diabetes mellitus with hyperglycemia, with long-term current use of insulin (CMS/[facility]) - POCT glucose manually resulted - insulin regular (HumuLIN R U-500 KWIKPEN) 500 UNIT/ML CONCENTRATED injection; Inject 50 Units under the skin in the morning and 50 Units in the evening and 50 Units before bedtime. - gabapentin (Neurontin) 600 MG tablet; Take 1 tablet (600 mg) by mouth in the morning and 1 tablet(600 mg) before bedtime. Since he has confusion with using two insulin, I will switch him to U-500 50 units breakfast, 30 units lunch, 50 units supper, 20 units snack, instruction given, I gave him sample for Janumet 100/1000 extended release once a day, otherwise he he can continue with his home medication with Jentadueto2.12/999 twice a day. Insulin long-term use (CMS/HCC) Vitamin D deficiency Encounter for dietary consultation Diet and exercise reviewed with the patient Hyperlipemia, mixed (CMS/HCC) Primary hypertension (CMS/HCC) Class 2 severe obesity due to excess calories with serious comorbidity and body mass index (BMI) of38.0 to 38.9 in adult ([facility]) Follow up in about 6 weeks (around 08/26/2024). documented in this encounterNevada Regional Medical [id number] History of Present illness Narrative* Mounika Brooke MD - 07/11/2024 1:20 PM EST Images from the original note were not included. Patient: Nicole Lora : 1960 PCP: Mounika Brooke MD Nicole Lora is a 64 y.o. male presenting today for follow-up after being seen in ED. The main problem requiring evaluation was shoulder pain. The discharge summary and/or Transitional Care Management documentation was reviewed. Medication reconciliation was performed as indicated via the Raghu as Reviewed timestamp. Flowsheet Row Office Visit from 07/11/2024 in [facility] with Mounika Brooke MD Hospital Information ED, Hospital or Intermediate Facility Discharge? ED Patient has been contacted within 1 week of being seen in the ED Yes Discharge Date 07/09/24 Discharged To: Home Setting Discharge [facility] Engagement Admission Date 07/09/24 Medications Discharge medications reviewed and reconciled from hospital? Yes Does the patient have all medications ordered at discharge? Yes Is the patient taking all medications as directed (includes completed medication regime)? Yes Appointments Does the patient have a primary care provider? Yes Nursing Interventions Verified appointment date/time/provider Has the patient kept scheduled appointments due by today? Yes Self Management Patient Teaching Does the patient have access to their discharge instructions? Yes What is the patient's perception of their health status since discharge? Same Is the patient/caregiver able to teach back the hierarchy of who to call/visit for symptoms/problems? PCP, Specialist, Home Health nurse, Urgent Care, ED, 911 Yes Wrap Up Review of Systems General: Denies fever, chills, fatigue, VOSS or weight loss/gain CV: Denies CP, palpitations or swelling in legs Resp: denies cough, SOB or wheezing GI: Denies abd pain/n/v/c/d Skin: Denies rash Neuro: Denies LH or dizziness Objective Vitals: 07/11/24 1350 BP: 130/80 Pulse: 73 Temp: 97.8 F SpO2: 92% Physical Exam General: alert & oriented, NAD Head: NC/AT Oral Cavity: MMM Skin: warm, dry Heart: RRR, No m/r/g, S1S2 nml Lungs: CTA b/l Abdomen: soft, ND/NT, BS wnl Musculoskeletal: walks with cane Extremities: sling in place in RUE Neurological: nonfocal Psych: mood/affect full range Assessment/Plan Nicole was seen today for shoulder pain and er fu. Diagnoses and all orders for this visit: Acute pain of right shoulder (Primary) - Reviewed ED course with pt including imaging Discussed sx tx, side effects of meds and concerning sx to monitor for. Encouraged follow up with ortho as scheduled Chronic hypoxemic respiratory failure (CMS/HCC) Stable, continue to monitor. No change in regimen. Hypertension, unspecified type (CMS/HCC) Stable, continue to monitor. No change in regimen. BMI 40.0-44.9, adult (CMS/HCC) Morbid obesity (CMS/HCC) - continue to monitor weight No follow-ups on file. documented in this encounterNevada Regional Medical [id number] Hospital Discharge instructions Patient Education 07/09/2024 16:21:24 Tendinitis Tendinitis Tendinitis is inflammation of a tendon. A tendon is a strong cord of tissue that connects muscle tobone. Tendinitis can affect any tendon, but it most commonly affects the: Shoulder tendon (biceps tendon or rotator cuff). Ankle tendon (Achilles tendon). Elbow tendons. Tendons in the wrist. What are the causes? This condition may be caused by: Overusing a tendon or muscle. This is the most common cause. Age-related wear and tear. Injury. Inflammatory conditions, such as arthritis. Certain medicines. What increases the risk? You are more likely to develop this condition if you do activities that involve the same movements over and over again (repetitive motions). What are the signs or symptoms? Symptoms of this condition may include: Pain. Tenderness. Mild swelling. Decreased range of motion. How is this diagnosed? This condition is diagnosed with a physical exam. You may also have tests, such as: Ultrasound. This uses sound waves to make an image of the inside of your body in the affected area. MRI. This uses magnetic martinez and radio waves to make an image of the inside of your body in the affected area. How is this treated? This condition may be treated by resting, icing, applying pressure (compression), and raising (elevating) the affected area above the level of your heart. This is known as RICE therapy. Treatment mayalso include: Medicines to help reduce inflammation or to help reduce pain. Exercises or physical therapy to improve movement and strength of the tendon. A brace or splint. Injection of corticosteroid medicine. This may be done in some cases. Surgery. This is rarely needed and only used if all other treatment has failed. Follow these instructions at home: If you have a removable splint or brace: Wear the splint or brace as told by your health care provider. Remove it only as told by your health care provider. Check the skin around the splint or brace every day. Tell your health care provider about any concerns. Loosen the splint or brace if your fingers or toes tingle, become numb, or turn cold and blue. Keep the splint or brace clean. If the splint or brace is not waterproof: ?Do not let it get wet. ?Cover it with a watertight covering when you take a bath or shower, or remove it as told by your health care provider. Managing pain, stiffness, and swelling If directed, put ice on the affected area. To do this: ?If you have a removable splint or brace, remove it as told by your health care provider. ?Put ice in a plastic bag. ?Place a towel between your skin and the bag. ?Leave the ice on for 20 minutes, 2 3 times a day. ?Remove the ice if your skin turns bright red. This is very important. If you cannot feel pain, heat, or cold, you have a greater risk of damage to the area. Move the fingers or toes of the affected limb often, if this applies. This can help to reduce stiffness and swelling. If directed, elevate the affected area above the level of your heart while you are sitting or lyingdown. If directed, apply heat to the affected area before you exercise. Use the heat source that your health care provider recommends, such as a moist heat pack or a heating pad. ?Place a towel between your skin and the heat source. ?Leave the heat on for 20 30 minutes. ?Remove the heat if your skin turns bright red. This is especially important if you are unable to feel pain, heat, or cold. You have a greater risk of getting burned. Activity Rest the affected area as told by your health care provider. Ask your health care provider when it is safe to drive if you have a splint or brace on any part ofyour arm or leg. Return to your normal activities as told by your health care provider. Ask your health care provider what activities are safe for you. Avoid using the affected area while you are experiencing symptoms of tendinitis. Do exercises as told by your health care provider. General instructions Wear an elastic bandage or compression wrap only as told by your health care provider. Take ychg-bry-pehsvpo and prescription medicines only as told by your health care provider. Keep all follow-up visits. This is important. Contact a health care provider if: Your symptoms do not improve. You develop new, unexplained problems, such as numbness in your hands or feet. Summary Tendinitis is inflammation of a tendon. You are more likely to develop this condition if you do activities that involve the same movements over and over again. This condition may be treated by resting, icing, applying pressure (compression), and elevating thearea above the level of your heart. This is known as RICE therapy. Avoid using the affected area while you are experiencing symptoms of tendinitis. This information is not intended to replace advice given to you by your health care provider. Make sure you discuss any questions you have with your health care provider. Document Revised: 04/14/2022 Document Reviewed: 04/14/2022 [employer] Patient Education 2023 [employer]. Follow Up Care 07/09/2024 14:36:54 With:Zak Quiñones Address: [address] [place] [id number] Business (1) When:07/12/2024 16:10:31 [facility] 11-19-2024 NoteED Patient Education Note Orthopedics Tendinitis Tendinitis is inflammation of a tendon. A tendon is a strong cord of tissue that connects muscle tobone. Tendinitis can affect any tendon, but it most commonly affects the: ??? Shoulder tendon (biceps tendon or rotator cuff). ??? Ankle tendon (Achilles tendon). ??? Elbow tendons. ??? Tendons in the wrist. What are the causes? This condition may be caused by: ??? Overusing a tendon or muscle. This is the most common cause. ??? Age-related wear and tear. ??? Injury. ??? Inflammatory conditions, such as arthritis. ??? Certain medicines. What increases the risk? You are more likely to develop this condition if you do activities that involve the same movements over and over again (repetitive motions). What are the signs or symptoms? Symptoms of this condition may include: ??? Pain. ??? Tenderness. ??? Mild swelling. ??? Decreased range of motion. How is this diagnosed? This condition is diagnosed with a physical exam. You may also have tests, such as: ??? Ultrasound. This uses sound waves to make an image of the inside of your body in the affected area. ??? MRI. This uses magnetic martinez and radio waves to make an image of the inside of your body in the affected area. How is this treated? This condition may be treated by resting, icing, applying pressure (compression), and raising (elevating) the affected area above the level of your heart. This is known as RICE therapy. Treatment mayalso include: ??? Medicines to help reduce inflammation or to help reduce pain. ??? Exercises or physical therapy to improve movement and strength of the tendon. ??? A brace or splint. ??? Injection of corticosteroid medicine. This may be done in some cases. ??? Surgery. This is rarely needed and only used if all other treatment has failed. Follow these instructions at home: If you have a removable splint or brace: ??? Wear the splint or brace as told by your health care provider. Remove it only as told by your health care provider. ??? Check the skin around the splint or brace every day. Tell your health care provider about any concerns. ??? Loosen the splint or brace if your fingers or toes tingle, become numb, or turn cold and blue. ??? Keep the splint or brace clean. ??? If the splint or brace is not waterproof: ? Do not let it get wet. ? Cover it with a watertight covering when you take a bath or shower, or remove it as told by your health care provider. Managing pain, stiffness, and swelling ??? If directed, put ice on the affected area. To do this: ? If you have a removable splint or brace, remove it as told by your health care provider. ? Put ice in a plastic bag. ? Place a towel between your skin and the bag. ? Leave the ice on for 20 minutes, 2?3 times a day. ? Remove the ice if your skin turns bright red. This is very important. If you cannot feel pain, heat, or cold, you have a greater risk of damage to the area. ??? Move the fingers or toes of the affected limb often, if this applies. This can help to reduce stiffness and swelling. ??? If directed, elevate the affected area above the level of your heart while you are sitting or lying down. ??? If directed, apply heat to the affected area before you exercise. Use the heat source that yourhealth care provider recommends, such as a moist heat pack or a heating pad. ? Place a towel between your skin and the heat source. ? Leave the heat on for 20?30 minutes. ? Remove the heat if your skin turns bright red. This is especially important if you are unable to feel pain, heat, or cold. You have a greater risk of getting burned. Activity ??? Rest the affected area as told by your health care provider. ??? Ask your health care provider when it is safe to drive if you have a splint or brace on any part of your arm or leg. ??? Return to your normal activities as told by your health care provider. Ask your health care provider what activities are safe for you. ??? Avoid using the affected area while you are experiencing symptoms of tendinitis. ??? Do exercises as told by your health care provider. General instructions ??? Wear an elastic bandage or compression wrap only as told by your health care provider. ??? Take igdm-lxv-qjbscns and prescription medicines only as told by your health care provider. ??? Keep all follow-up visits. This is important. Contact a health care provider if: ??? Your symptoms do not improve. ??? You develop new, unexplained problems, such as numbness in your hands or feet. Summary ??? Tendinitis is inflammation of a tendon. ??? You are more likely to develop this condition if you do activities that involve the same movements over and over again. ??? This condition may be treated by resting, icing, applying pressure (compression), and elevatingthe are (more content not included)...[facility]11-19-2024 Evaluation + Plan noteExtracted from: Title:ED Note Author:Jesus Grijalva PA-C te:07/09/24 Left shoulder pain (M25.512: Pain in left shoulder) Tendinitis (M77.9: Enthesopathy, unspecified) Ordered: acetaminophen-oxycodone, 1 tab(s), Oral, q6hr as needed for pain for 3 day(s), 10 tab(s), Refill(s) 0, [facility] #[id number], 183, cm, 07/09/24 14:44:00 EST, Height/Length Dosing, 132.4, kg, 07/09/24 14:44:00 EST, Weight Dosing Orders: acetaminophen-oxycodone, 1 tab(s), Tab, Oral, Once, Stop date 07/09/24 15:01:00 EST, STAT, Start date 07/09/24 15:01:00 EST Apply Sling XR Shoulder Complete Right Future Appointments Appointment Date:09/04/2024 03:15:00 PM Scheduled Provider:Taz THOMAS MD Location:[facility] Appointment Type:URO Office Visit [facility] 11-13-2024 History of Present illness Narrative* Mounika Brooke MD - 07/03/2024 12:40 PM EST Images from the original note were not included. Patient: Nicole Lora : 1960 PCP: Mounika Brooke MD Nicole Lora is a 64 y.o. male presenting today for follow-up after being seen in ED. The main problem requiring evaluation was PNA, rib contusion. The discharge summary and/or Transitional Care Management documentation was reviewed. Medication reconciliation was performed as indicated via the Raghu as Reviewed timestamp. Flowsheet Row Documentation from 06/25/2024 in [facility] with [facility] Information ED, Hospital or Intermediate Facility Discharge? ED Patient has been contacted within 1 week of being seen in the ED Yes Diagnosis Pneumonia Discharge Date 06/23/24 Discharged To: Home Setting Discharge Hospital [facility] Engagement Admission Date 06/23/24 Medications Discharge medications reviewed and reconciled from hospital? Yes Does the patient have all medications ordered at discharge? No Is the patient taking all medications as directed (includes completed medication regime)? Yes Appointments Does the patient have a primary care provider? Yes Has the patient kept scheduled appointments due by today? -- [Declined Follow up] Self Management Patient Teaching Does the patient have access to their discharge instructions? Yes What is the patient's perception of their health status since discharge? Improving Is the patient/caregiver able to teach back the hierarchy of who to call/visit for symptoms/problems? PCP, Specialist, Home Health nurse, Urgent Care, ED, 911 Yes Wrap Up Review of Systems General: Denies fever, chills, fatigue, VOSS CV: Denies CP, palpitations Resp: denies cough, SOB GI: Denies abd pain/n/v/c/d Skin: Denies rash Neuro: Denies LH or dizziness Objective Vitals: 07/03/24 1245 Pulse: 84 Temp: 98 F SpO2: 93% 148/78 Physical Exam General: alert & oriented, NAD Head: NC/AT Oral Cavity: MMM Skin: warm, dry Heart: RRR, No m/r/g, S1S2 nml Lungs: CTA b/l Abdomen: soft, ND/NT, BS wnl Musculoskeletal: walks with cane Extremities: no clubbing, cyanosis Neurological: nonfocal Psych: mood/affect full range Assessment/Plan Nicole was seen today for er follow-up. Diagnoses and all orders for this visit: Difficulty walking (Primary) - Misc. Devices (Cane) misc; 1 each continuously Acute on chronic respiratory failure with hypoxia and hypercapnia (CMS/HCC) - Reviewed hospital course with pt including labs and imaging Discussed sx tx, side effects of meds and concerning sx to monitor for. Discussed signs of recurrence to monitor for Hypertension, unspecified type (CMS/HCC) Stable, continue to monitor. No change in regimen. Type 2 diabetes mellitus with hyperglycemia, with long-term current use of insulin (CMS/HCC) - Encouraged follow up with endo Morbid obesity (CMS/HCC) - continue to monitor weight BMI 40.0-44.9, adult (CMS/HCC) Follow up if symptoms worsen or fail to improve. documented in this encounterN[facility] [id number] Telephone encounter Note* Telephone Encounter - HARPAL Barnes - 06/24/2024 11:07 AM EST Ok reviewed and we discussed at visit to try to get an earlier appt or talk with Dr. Murray staff [facility] [id number] Miscellaneous Notes* Telephone Encounter - HARPAL Barnes - 06/24/2024 11:07 AM EST Ok reviewed and we discussed at visit to try to get an earlier appt or talk with Dr. Murray staff * Telephone Encounter - Suzanna Smith MA - 06/24/2024 10:28 AM EST Patient is currently scheduled to see Dr. Sweeney 07-15-2024. * Telephone Encounter - HARPAL Barnes - 06/24/2024 8:37 AM EST Please call patient I see he was in ER and diagnosed with pneumonia however his hgba1c was 14 and Iwanted to see if he made appt to see Dr. Murray as soon as possible? documented in this encounterNevada Regional Medical [id number] Telephone encounter Note* Telephone Encounter - Suzanna Smith MA - 06/24/2024 10:28 AM EST Patient is currently scheduled to see Dr. Sweeney 07-15-2024. [facility] [id number] Telephone encounter Note* Telephone Encounter - HARPAL Barnes - 06/24/2024 8:37 AM EST Please call patient I see he was in ER and diagnosed with pneumonia however his hgba1c was 14 and Iwanted to see if he made appt to see Dr. Murray as soon as possible? [facility] [id number] Hospital Discharge instructions Patient Education 06/23/2024 14:01:17 Community-Acquired Pneumonia, Adult, Llbe-jt-Cbvc Community-Acquired Pneumonia, Adult Pneumonia is an infection of the lungs. It causes irritation and swelling in the airways of the lungs. Mucus and fluid may also build up inside the airways. This may cause coughing and trouble breathing. One type of pneumonia can happen while you are in a hospital. A different type can happen when you are not in a hospital (community-acquired pneumonia). What are the causes? This condition is caused by germs (viruses, bacteria, or fungi). Some types of germs can spread from person to person. Pneumonia is not thought to spread from person to person. What increases the risk? You have a long-term (chronic) disease, such as: ?Disease of the lungs. This may be chronic obstructive pulmonary disease (COPD) or asthma. ?Heart failure. ?Cystic fibrosis. ?Diabetes. ?Kidney disease. ?Sickle cell disease. ?HIV. You have other health problems, such as: ?Your body's defense system (immune system) is weak. ?A condition that may cause you to breathe in fluids from your mouth and nose. You had your spleen taken out. You do not take good care of your teeth and mouth (poor dental hygiene). You use or have used tobacco products. You go where the germs that cause this illness are common. You are older than 65 years of age. What are the signs or symptoms? A cough. A fever. Sweating or chills. Chest pain, often when you breathe deeply or cough. Breathing problems, such as: ?Fast breathing. ?Trouble breathing. ?Shortness of breath. Feeling tired (fatigued). Muscle aches. How is this treated? Treatment for this condition depends on many things, such as: The cause of your illness. Your medicines. Your other health problems. Most adults can be treated at home. Sometimes, treatment must happen in a hospital. Treatment may include medicines to kill germs. Medicines may depend on which germ caused your illness. Very bad pneumonia is rare. If you get it, you may: Have a machine to help you breathe. Have fluid taken away from around your lungs. Follow these instructions at home: Medicines Take ifdz-jch-eivqwlf and prescription medicines only as told by your doctor. Take cough medicine only if you are losing sleep. Cough medicine can keep your body from taking mucus away from your lungs. If you were prescribed antibiotics, take them as told by your doctor. Do not stop taking them even if you start to feel better. Lifestyle Do not smoke or use any products that contain nicotine or tobacco. If you need help quitting, ask your doctor. Do not drink alcohol. Eat a healthy diet. This includes a lot of vegetables, fruits, whole grains, low-fat dairy products, and low-fat (lean) protein. General instructions Rest a lot. Sleep for at least 8 hours each night. Sleep with your head and neck raised. Put a few pillows under your head or sleep in a reclining chair. Return to your normal activities as told by your doctor. Ask your doctor what activities are safe for you. Drink enough fluid to keep your pee (urine) pale yellow. If your throat is sore, gargle with a mixture of salt and water 3 4 times a day or as needed. To make salt water, completely dissolve 1 tsp (3 6 g) of salt in 1 cup (237 mL) of warm water. Keep all follow-up visits. How is this prevented? Getting the pneumonia shot (vaccine). These shots have different types and schedules. Ask your doctor what works best for you. Think about getting this shot if: ?You are older than 65 years of age. ?You are 19 65 years of age and: ?You are being treated for cancer. ?You have long-term lung disease. ?You have other problems that affect your body's defense system. Ask your doctor if you have one ofthese. Getting your flu shot every year. Ask your doctor which type of shot is best for you. Going to the dentist as often as told. Washing your hands often with soap and water for at least 20 seconds. If you cannot use soap and water, use hand tuber operator. Contact a doctor if: You have a fever. You lose sleep because your cough medicine does not help. Get help right away if: You are short of breath and this gets worse. You have more chest pain. Your sickness gets worse. This is very serious if: ?You are an older adult. ?Your body's defense system is weak. You cough up blood. These symptoms may be an emergency. Get help right away. Call 911. Do not wait to see if the symptoms will go away. Do not drive yourself to the hospital. Summary Pneumonia is an infection of the lungs. Community-acquired pneumonia affects people who have not been in the hospital. Certain germs can cause this infection. This condition may be treated with medicines that kill germs. For very bad pneumonia, you may need a hospital stay and treatment to help with breathing. This information is not intended to replace advice given to you by your health care provider. Make sure you discuss any questions you have with your health care provider. Document Revised: 10/05/2022 Document Reviewed: 10/05/2022 [employer] Content Patient Education 2023 [employer]. 06/23/2024 14:01:17 Rib Contusion Rib Contusion A rib contusion is a deep bruise on the rib area. Contusions are the result of a blunt trauma that causes bleeding and injury to the tissues under the skin. A rib contusion may involve bruising of the ribs and of the skin and muscles in the area. The skin over the contusion may turn blue, purple, or yellow. Minor injuries result in a painless contusion. More severe contusions may be painful and swollen for a few weeks. What are the causes? This condition is usually caused by a hard, direct hit to an area of the body. This often occurs while playing contact sports. What are the signs or symptoms? Symptoms of this condition include: Swelling and redness of the injured area. Discoloration of the injured area. Tenderness and soreness of the injured area. Pain with or without movement. Pain when breathing in. How is this diagnosed? This condition may be diagnosed based on: Your symptoms and medical history. A physical exam. Imaging tests such as an X-ray, CT scan, or MRI to determine if there were internal injuries or broken bones (fractures). How is this treated? This condition may be treated with: Rest. This is often the best treatment for a rib contusion. Ice packs. This reduces swelling and inflammation. Deep-breathing exercises. These may be recommended to reduce the risk for lung collapse and pneumonia. Medicines. Vvpy-rle-jyrwpgl or prescription medicines may be given to control pain. Injection of a numbing medicine around the nerve near your injury (nerve block). Follow these instructions at home: Medicines Take pnks-tjj-siqspmv and prescription medicines only as told by your health care provider. Ask your health care provider if the medicine prescribed to you: ?Requires you to avoid driving or using machinery. ?Can cause constipation. You may need to take these actions to prevent or treat constipation: ?Drink enough fluid to keep your urine pale yellow. ?Take plop-vcl-zrcgkrf or prescription medicines. ?Eat foods that are high in fiber, such as beans, whole grains, and fresh fruits and vegetables. ?Limit foods that are high in fat and processed sugars, such as fried or sweet foods. Managing pain, stiffness, and swelling If directed, put ice on the injured area. To do this: Put ice in a plastic bag. Place a towel between your skin and the bag. Leave the ice on for 20 minutes, 2 3 times a day. Remove the ice if your skin turns bright red. This is very important. If you cannot feel pain, heat, or cold, you have a greater risk of damage to the area. Activity Rest the injured area. Avoid strenuous activity and any activities or movements that cause pain. Be careful during activities, and avoid bumping the injured area. Do not lift anything that is heavier than 5 lb (2.3 kg), or the limit that you are told, until yourhealth care provider says that it is safe. General instructions Do not use any products that contain nicotine or tobacco, such as cigarettes, e- cigarettes, and chewing tobacco. These can delay healing. If you need help quitting, ask your health care provider. Do deep-breathing exercises as told by your health care provider. If you were given an incentive spirometer, use it every 1 2 hours while you are awake, or as recommended by your health care provider. This device measures how well you are filling your lungs with each breath. Keep all follow-up visits. This is important. Contact a health care provider if you have: Increased bruising or swelling. Pain that is not controlled with treatment. A fever. Get help right away if you: Have difficulty breathing or shortness of breath. Develop a continual cough, or you cough up thick or bloody mucus from your lungs (sputum). Feel nauseous or you vomit. Have pain in your abdomen. These symptoms may represent a serious problem that is an emergency. Do not wait to see if the symptoms will go away. Get medical help right away. Call your local emergency services (911 in the [place] Do not drive yourself to the hospital. Summary A rib contusion is a deep bruise on your rib area. Contusions are the result of a blunt trauma thatcauses bleeding and injury to the tissues under the skin. The skin over the contusion may turn blue, purple, or yellow. Minor injuries may cause a painless contusion. More severe contusions may be painful and swollen for a few weeks. Rest the injured area. Avoid strenuous activity and any activities or movements that cause pain. This information is not intended to replace advice given to you by your health care provider. Make sure you discuss any questions you have with your health care provider. Document Revised: 11/11/2020 Document Reviewed: 11/11/2020 [employer] Content Patient Education 2023 [employer] Follow Up Care 06/23/2024 13:38:04 With:Mounika Brooke Address: [place] [address]- Business (1) When:06/26/2024 13:54:07 Comments:Call for diagnosis based follow up [facility] 11-03-2024 NoteED Patient Education Note Infectious Disease Community-Acquired Pneumonia, Adult Pneumonia is an infection of the lungs. It causes irritation and swelling in the airways of the lungs. Mucus and fluid may also build up inside the airways. This may cause coughing and trouble breathing. One type of pneumonia can happen while you are in a hospital. A different type can happen when you are not in a hospital (community-acquired pneumonia). What are the causes? This condition is caused by germs (viruses, bacteria, or fungi). Some types of germs can spread from person to person. Pneumonia is not thought to spread from person to person. What increases the risk? You have a long-term (chronic) disease, such as: ? Disease of the lungs. This may be chronic obstructive pulmonary disease (COPD) or asthma. ? Heart failure. ? Cystic fibrosis. ? Diabetes. ? Kidney disease. ? Sickle cell disease. ? HIV. ??? You have other health problems, such as: ? Your body's defense system (immune system) is weak. ? A condition that may cause you to breathe in fluids from your mouth and nose. ??? You had your spleen taken out. ??? You do not take good care of your teeth and mouth (poor dental hygiene). ??? You use or have used tobacco products. ??? You go where the germs that cause this illness are common. ??? You are older than 65 years of age. What are the signs or symptoms? A cough. ??? A fever. ??? Sweating or chills. ??? Chest pain, often when you breathe deeply or cough. ??? Breathing problems, such as: ? Fast breathing. ? Trouble breathing. ? Shortness of breath. ??? Feeling tired (fatigued). ??? Muscle aches. How is this treated? Treatment for this condition depends on many things, such as: ??? The cause of your illness. ??? Your medicines. ??? Your other health problems. Most adults can be treated at home. Sometimes, treatment must happen in a hospital. ??? Treatment may include medicines to kill germs. ??? Medicines may depend on which germ caused your illness. Very bad pneumonia is rare. If you get it, you may: ??? Have a machine to help you breathe. ??? Have fluid taken away from around your lungs. Follow these instructions at home: Medicines ??? Take gayk-elc-pxsfaiy and prescription medicines only as told by your doctor. ??? Take cough medicine only if you are losing sleep. Cough medicine can keep your body from takingmucus away from your lungs. ??? If you were prescribed antibiotics, take them as told by your doctor. Do not stop taking them even if you start to feel better. Lifestyle ??? Do not smoke or use any products that contain nicotine or tobacco. If you need help quitting, ask your doctor. ??? Do not drink alcohol. ??? Eat a healthy diet. This includes a lot of vegetables, fruits, whole grains, low-fat dairy products, and low-fat (lean) protein. General instructions ??? Rest a lot. Sleep for at least 8 hours each night. ??? Sleep with your head and neck raised. Put a few pillows under your head or sleep in a recliningchair. ??? Return to your normal activities as told by your doctor. Ask your doctor what activities are safe for you. ??? Drink enough fluid to keep your pee (urine) pale yellow. ??? If your throat is sore, gargle with a mixture of salt and water 3?4 times a day or as needed. To make salt water, completely dissolve ??1 tsp (3?6 g) of salt in 1 cup (237 mL) of warm water. ??? Keep all follow-up visits. How is this prevented? Getting the pneumonia shot (vaccine). These shots have different types and schedules. Ask your doctor what works best for you. Think about getting this shot if: ? You are older than 65 years of age. ? You are 19?65 years of age and: ? You are being treated for cancer. ? You have long-term lung disease. ? You have other problems that affect your body's defense system. Ask your doctor if you have one of these. ??? Getting your flu shot every year. Ask your doctor which type of shot is best for you. ??? Going to the dentist as often as told. ??? Washing your hands often with soap and water for at least 20 seconds. If you cannot use soap and water, use hand tuber operator. Contact a doctor if: ??? You have a fever. ??? You lose sleep because your cough medicine does not help. Get help right away if: ??? You are short of breath and this gets worse. ??? You have more chest pain. ??? Your sickness gets worse. This is very serious if: ? You are an older adult. ? Your body's defense system is weak. ??? You cough up blood. These symptoms may be an emergency. Get help right away. Call 911. ??? Do not wait to see if the symptoms will go away. ??? Do not drive yourself to the hospital. Summary ??? Pneumonia is an infection of the lungs. ??? Community-acquired pneumonia (more content not included)...[facility]11-03-2024 Evaluation + Plan noteExtracted from: Title:ED Note Author:Paddy Betancourt PA-C te:06/23/24 Contusion of rib on left [facility] (S20.212A: Contusion of left front wall of thorax, initial encounter) Pneumonia (J18.9: Pneumonia, unspecified organism) Orders: acetaminophen-oxycodone, 1 tab(s), Oral, q6hr for pain for 3 day(s), 12 tab(s), Refill(s) 0, [facility] #[id number], 183, cm, 06/23/24 13:45:00 EST, Height/Length Dosing, 143, kg, 06/23/24 13:45:00 EST, Weight Dosing doxycycline, 100 mg = 1 cap(s), Oral, BID, # 20 cap(s), Refills(s) 0, Pharmacy: [facility] #[id number], 183, cm, 06/23/24 13:45:00 EST, Height/Length Dosing, 143, kg, 06/23/24 13:45:00 EST, Weight Dosing Future Appointments Appointment Date:09/04/2024 03:15:00 PM Scheduled Provider:Taz THOMAS MD Location:[facility] Appointment Type:URO Office Visit [facility] 11-01-2024 History of Present illness Narrative* HARPAL Barnes - 06/21/2024 1:30 PM EDT Images from the original note were not included. Nicole Lora is a 64 y.o. male presents with chief complaint of Med Refill, Fall, and Diabetes HPI: History of Present Illness The patient is a 64-year-old male who presents for evaluation of multiple medical concerns. He reports a fall that occurred 3 to 4 days ago, during which he hit his chest on a dresser and subsequently his chin. He experienced a 10-minute period of immobility on the floor post-fall. He describes significant soreness in his chest, particularly when coughing or breathing, but notes no external bruising. He has been using a heating pad for relief. He also mentions a long-standing cough, which has recently worsened. He has not previously used steroids for his asthma but does have a nebulizer and home oxygen available. He is seeking a renewal of his prescription for diabetic needles. He has been managing a foot ulcerfor over a year, which has shown improvement following vein work on his leg. He has undergone 5 skin grafts and has lost half of his foot due to diabetes. He maintains an active lifestyle, including daily exercise on a bike and sit-ups. He expresses concern about the effectiveness of his current insulin regimen, as his blood sugar levels have been high, reaching the 400s. He administers insulin in the morning, at night, and sometimes before meals. He has an upcoming appointment with his customer assistant, Dr. Sweeney. ALLERGIES He is allergic to PENICILLIN. MEDICATIONS: Current Outpatient Medications Medication Instructions albuterol HFA 90 mcg/act inhaler 2 puffs, Every 4 hours PRN atorvastatin (LIPITOR) 40 mg, Every 24 hours Continuous Blood Gluc Roving Department Supervisor (FreeStyle Sage 3 [place]) device 1 each, Does not apply, Continuous Continuous Blood Gluc Sensor (FreeStyle Sage 3 Sensor) misc 1 each, Does not apply, Every 14 days DULoxetine (CYMBALTA) 60 mg, Daily Fiasp FlexTouch 100 UNIT/ML injection inject PLUS ISS #2 (EXPECT DAILY DOSE OF 80 UNITS) gabapentin (NEURONTIN) 600 mg, 3 times daily guaiFENesin (MUCINEX) 1,200 mg, 2 times daily hydrALAZINE (APRESOLINE) 10 mg, Every 12 hours lisinopril-hydroCHLOROthiazide 20-25 MG tablet 1 tablet, Daily losartan (COZAAR) 100 mg, Daily methylPREDNISolone (Medrol Dospak) 4 MG tablets Follow schedule on package instructions pen needle 31G x 8 mm misc Use as instructed potassium chloride ER (Micro-K) 10 MEQ ER capsule 10 mEq, Daily rOPINIRole (REQUIP) 2 mg, Oral, Nightly Symbicort 160-4.5 MCG/ACT inhaler 2 puffs, 2 times daily torsemide (DEMADEX) 60 mg, 3 times daily ALLERGIES: Allergies Allergen Reactions Penicillins Rash Penicillamine Unknown Review of Systems General: Denies fever, chills, fatigue, VOSS or weight loss/gain CV: Denies CP, palpitations or swelling in legs Resp: denies cough, SOB or wheezing GI: Denies abd pain/n/v/c/d Skin: Denies rash Neuro: Denies LH or dizziness Medical, Surgical, Family, and Social History reviewed. OBJECTIVE: Visit Vitals BP 139/89 (BP Location: Right arm, Patient Position: Sitting, BP Cuff Size: Large adult) Pulse 71 Temp 98.1 F (Temporal) Ht 5' 10 Wt 291 lb 3.2 oz SpO2 91% BMI 41.78 kg/m Smoking Status Never BSA 2.55 m BP Readings from Last 3 Encounters: 06/21/24 139/89 04/29/24 138/70 12/25/23 134/80 Wt Readings from Last 3 Encounters: 06/21/24 291 lb 3.2 oz 04/29/24 296 lb 12/25/23 285 lb 6.4 oz Physical Exam Physical Exam General: alert & oriented, NAD Head: NC/AT Oral Cavity: MMM Skin: warm, dry Heart: RRR, No m/r/g, S1S2 nml Lungs: CTA b/l Abdomen: soft, ND/NT, BS wnl Musculoskeletal: normal gait Extremities: no clubbing, cyanosis or edema Neurological: nonfocal Psych: mood/affect full range Results ASSESSMENT AND PLAN: Assessment & Plan 1. Chest pain. He reports chest pain after a fall three days ago, with soreness especially when coughing or breathing. There is a visible crevice and a small bruise on the chest. A chest x-ray has been ordered to rule out any fractures. A steroid pack has been prescribed to reduce inflammation and alleviate pain.He is advised to use a heating pad for comfort. 2. Diabetes Mellitus. His blood sugar levels have been running high, reaching the 400s. Blood work has been ordered to monitor his diabetes. He is advised to consult with his customer assistant, Dr. Sweeney, regarding his elevated blood sugar levels and potential adjustment of his medication. He will call Dr. Sweeney's office to try to get an earlier appointment. 3. Asthma. He has a chronic cough and uses a nebulizer. He has been prescribed a steroid pack which may also help alleviate his cough. 4. Medication Management. A prescription for diabetic needles has been renewed and sent to [facility]. Assessment/Plan Problem List Items Addressed This Visit Chronic cough Relevant Orders XR chest 2 views Type 2 diabetes mellitus with hyperglycemia ([facility]) - Primary Relevant Medications pen needle 31G x 8 mm misc Other Relevant Orders POCT glycated hemoglobin, total docked device Hemoglobin A1c Chest wall pain Relevant Orders XR chest 2 views Other Visit Diagnoses Non-recurrent acute serous otitis media of right ear Relevant Medications methylPREDNISolone (Medrol Dospak) 4 MG tablets Health Maintenance Due Topic Date Due Colorectal Cancer Screening Never done Pneumococcal Vaccine: 65+ Years (2 of 2 - PCV) 08/07/2019 Diabetes: Hemoglobin A1C 01/24/2024 Influenza Vaccine (1) 04/21/2024 documented in this encounterNevada Regional Medical [id number] NoteTime Out 05/22/2024. 2:41 PM. Confirmed correct patient, procedure, site, and patient consented. Anesthesia Topical anesthesia was used. Anesthetic medications included Lidocaine 2%, Proparacaine 0.5%. Procedure Preparation included 5% betadine to ocular surface, eyelid speculum. Injection: 0.3 mg ranibizumab 0.3 MG/0.05ML Route: Intravitreal, Site: Left Eye [facility]: 27606-217-80, Lot: [id number], Expiration date: 04/29/2026, Waste: 0 mL Post-op Post injection exam found visual acuity of at least counting fingers, no retinal detachment, perfused optic nerve. The patient tolerated the procedure well. There were no complications. The patient received written and verbal post procedure care education. Post injection medications were not given. Notes Intravitreal Lucentis: Risks, benefits and alternatives were discussed for Intravitreal meds. With intraocular surgery, there is potential for direct retinal damage through retinal or RPE tear, or infection, with subsequent vision loss. Informative Intravitreal pamphlet provided as well as OMIC consent. Of course, the treatment may fail to accomplish the overall therapeutic objectives, which is to stall or decrease the amount of retinal edema / bleeding, and therefore stall or improve vision loss. Intravitreal Anti-VEGF: Consent was obtained and questions answered. Operative eye was identified, receiving topical proparacaine, 5% betadine, and 2% xylocaine jelly. A lid speculum was placed and the superotemporal injection site received additional anesthetic with a proparacaine soaked cotton swab. Using calipers (set at 3.5mm for pseudo and 4mm for phakic), the superotemporal limbus was measured, sclera marked and 2 additional drops of betadine placed. Avoiding any talking to avoid contamination, intravitreal injection was carried out without difficulty. Any residual amount of medication was discarded appropriately. The patient tolerated the procedure well and instructed to call with increased pain, redness, decreased vision or concerns.[facility] [id number] History of Present illness Narrative* PEDRO PABLO Her - 05/22/2024 2:00 PM EDT Images from the original note were not included. 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 Can we help with this [facility] [id number] Miscellaneous Notes* Telephone Encounter - Mounika Brooke MD - 04/29/2024 2:53 PM EDT Pt has at home oxygen - would benefit from portable oxygen. Can we help with this documented in [place] encounterH[place] [id number] History of Present illness Narrative* Mounika Brooke MD - 04/29/2024 2:52 PM EDTAssociated Problem(s): Hyperlipidemia (CMS/HCC) Stable, continue to monitor. No change in regimen. 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 No change in regimen. * Mounika Brooke MD - 04/29/2024 2:51 PM EDTAssociated Problem(s): Gastroesophageal reflux disease Stable, continue to monitor. No change in regimen. * Mounika Brooke MD - 04/29/2024 2:51 PM EDTAssociated Problem(s): Varicose veins of lower extremity Continue to follow w/ vascular * Mounika Brooke MD - 04/29/2024 2:50 PM EDTAssociated Problem(s): Hypertension (CMS/HCC) Stable, continue to monitor. No change in regimen. * Mounika Brooke MD - 04/29/2024 2:50 PM EDTAssociated Problem(s): Acute on chronic respiratory failure with hypoxia and hypercapnia (CMS/HCC) Stable, continue to monitor. No change in regimen. Discussed concerning sx to monitor for. Continue oxygen use - pt would benefit from portable oxygen * Mounika Brooke MD - 04/29/2024 2:50 PM EDTAssociated Problem(s): Chronic hypoxemic respiratory failure (CMS/HCC) Stable, continue to monitor. No change in regimen. * Mounika Brooke MD - 04/29/2024 2:50 PM EDTAssociated Problem(s): TC (obstructive sleep apnea) Stable, continue to monitor. No change in regimen. * Mounika Brooke MD - 04/29/2024 2:49 PM EDTAssociated Problem(s): Restless leg syndrome Currently uncontrolled as pt is out of meds. Refill sent of increased dose * Mounika Brooke MD - 04/29/2024 2:49 PM EDTAssociated Problem(s): Diabetic neuropathy (CMS/HCC) Stable, continue to monitor. No change in regimen. * Mounika Brooke MD - 04/29/2024 2:00 PM EDT Images from the original note were not included. Subjective : Chief Complaint: Nicole Lora is an 64 y.o. male here for an annual wellness visit. I have reviewed and reconciled the medication list with the patient today. Current Outpatient Medications Medication Sig Dispense Refill albuterol HFA 90 mcg/act inhaler Inhale 2 puffs every 4 (four) hours if needed. atorvastatin (Lipitor) 40 MG tablet Take 40 mg by mouth 1 (one) time each day at the same time. Continuous Blood Gluc Roving Department Supervisor (FreeStyle Sage 3 [place]) device 1 each continuously 1 each 0 Continuous Blood Gluc Sensor (FreeStyle Sage 3 Sensor) misc 1 each every 14 (fourteen) days 6 each3 DULoxetine (Cymbalta) [address] capsule Take 60 mg by mouth in the morning. Fiasp FlexTouch 100 UNIT/ML injection inject PLUS ISS #2 (EXPECT DAILY DOSE OF 80 UNITS) gabapentin (Neurontin) 600 MG tablet Take 600 mg by mouth in the morning and 600 mg in the evening and 600 mg before bedtime. guaiFENesin (Mucinex) 600 MG 12 hr tablet Take 1,200 mg by mouth in the morning and 1,200 mg beforebedtime. hydrALAZINE (Apresoline) 10 MG tablet Take 10 mg by mouth every 12 (twelve) hours lisinopril-hydroCHLOROthiazide 20-25 MG tablet Take 1 tablet by mouth in the morning. losartan (Cozaar) 100 MG tablet Take 100 mg by mouth in the morning. potassium chloride ER (Micro-K) 10 MEQ ER capsule Take 10 mEq by mouth in the morning. Symbicort 160-4.5 MCG/ACT inhaler Inhale 2 puffs in the morning and 2 puffs before bedtime. torsemide (Demadex) 20 MG tablet Take 60 mg by mouth in the morning and 60 mg in the evening and 60mg before bedtime. rOPINIRole (Requip) 2 MG tablet Take 1 tablet (2 mg) by mouth at bedtime 90 tablet 3 No current facility-administered medications for this visit. Review of Systems General: Denies fever, chills, fatigue, VOSS or weight loss/gain CV: Denies CP, palpitations or swelling in legs Resp: denies cough, SOB or wheezing GI: Denies abd pain/n/v/c/d Skin: Denies rash Neuro: Denies LH or dizziness List of current healthcare providers: Patient Care Team: Mounika Brooke MD as PCP - General (Family Medicine) Medicare Annual Visit Over the past 2 weeks, how often have you been bothered by any of the following problems? Little interest or pleasure in doing things: Not at all Feeling down, depressed, or hopeless: Nearly every day Patient Health Questionnaire-2 Score: 3 Yu Fall Risk History of Falling, Immediate or Within 3 Months: No Health Risk Assessment Form Do you need help eating, bathing, using the toilet, dressing, or getting around your home?: No Can you prepare your own meals?: Yes Can you do your own housework without help?: Yes Can you shop for groceries or clothes without help?: Yes Do you exercise for about 20 minutes 3 or more days a week?: Yes How confident are you that you can control and manage most of your health problems?: Very confident Can you mange your money, credit cards and accounts, pay bills and taxes?: Yes Cognitive Screening Three Word Registration: Apple, Watch, Venus Clock Drawing: Normal Clock - 2 Three Word Recall: 1/3 words correct - 1 Total Score (0-5 Points): 3 Pain Assessment Pain Score: 10 - Worst possible pain Objective : BP 138/70 Pulse 75 Temp 98 F Ht 5' 10 Wt 296 lb SpO2 (!) 88% BMI 42.47 kg/m No results found. 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 No change in regimen. Gastroesophageal reflux disease Stable, continue to monitor. No change in regimen. Hyperlipidemia ([facility]) Stable, continue to monitor. No change in regimen. Hypertension ([facility]) Stable, continue to monitor. No change in regimen. Long-term insulin use ([facility]) Morbid obesity ([facility]) - continue to monitor weight Restless leg syndrome Currently uncontrolled as pt is out of meds. Refill sent of increased dose Stage 3b chronic kidney disease (HCC) ([facility]) Stable, continue to monitor. No change in regimen. Type 2 diabetes mellitus with hyperglycemia ([facility]) - Uncontrolled, A1c > 13 - encouraged follow up with endo Varicose veins of lower extremity Continue to follow w/ vascular TC (obstructive sleep apnea) Stable, continue to monitor. No change in regimen. Chronic hypoxemic respiratory failure ([facility]) Stable, continue to monitor. No change in regimen. Acute on chronic respiratory failure with hypoxia and hypercapnia ([facility]) Stable, continue to monitor. No change in regimen. Discussed concerning sx to monitor for. Continue oxygen use - pt would benefit from portable oxygen Obesity hypoventilation syndrome ([facility]) Other Visit Diagnoses Encounter for Medicare annual wellness exam - Primary RLS (restless legs syndrome) Relevant Medications rOPINIRole (Requip) 2 MG tablet Oxygen dependent BMI 40.0-44.9, adult ([facility]) The following health maintenance schedule was reviewed with the patient and provided in printed form in the after visit summary: Health Maintenance Topic Date Due Colorectal Cancer Screening Never done Pneumococcal Vaccine: 65+ Years (2 of 2 - PCV) 08/07/2019 Diabetes: Hemoglobin A1C 01/24/2024 Influenza Vaccine (1) 04/21/2024 Diabetes: Urine Protein Screening 03/11/2025 Diabetes: Retinopathy Screening 04/23/2025 Medicare Annual Wellness (AWV) 04/29/2025 Advance Care Planning Discussed No orders of the defined types were placed in this encounter. documented in this encounterNevada Regional Medical [id number] NoteTime Out 04/23/2024. 11:05 AM. Confirmed correct patient, procedure, site, and patient consented. Anesthesia Topical anesthesia was used. Anesthetic medications included Lidocaine 2%, Proparacaine 0.5%. Procedure Preparation included 5% betadine to ocular surface, eyelid speculum. Injection: 0.3 mg ranibizumab 0.3 MG/0.05ML Route: Intravitreal, Site: Left Eye [facility]: 24551-743-54, Lot: [id number], Expiration date: 04/29/2026, Waste: 0 mL Post-op Post injection exam found visual acuity of at least counting fingers, no retinal detachment, perfused optic nerve. The patient tolerated the procedure well. There were no complications. The patient received written and verbal post procedure care education. Post injection medications were not given. Notes Intravitreal Lucentis: Risks, benefits and alternatives were discussed for Intravitreal meds. With intraocular surgery, there is potential for direct retinal damage through retinal or RPE tear, or infection, with subsequent vision loss. Informative Intravitreal pamphlet provided as well as OMIC consent. Of course, the treatment may fail to accomplish the overall therapeutic objectives, which is to stall or decrease the amount of retinal edema / bleeding, and therefore stall or improve vision loss. Intravitreal Anti-VEGF: Consent was obtained and questions answered. Operative eye was identified, receiving topical proparacaine, 5% betadine, and 2% xylocaine jelly. A lid speculum was placed and the superotemporal injection site received additional anesthetic with a proparacaine soaked cotton swab. Using calipers (set at 3.5mm for pseudo and 4mm for phakic), the superotemporal limbus was measured, sclera marked and 2 additional drops of betadine placed. Avoiding any talking to avoid contamination, intravitreal injection was carried out without difficulty. Any residual amount of medication was discarded appropriately. The patient tolerated the procedure well and instructed to call with increased pain, redness, decreased vision or concerns.[facility] [id number] History of Present illness Narrative* Perlita Meeks MD - 04/23/2024 10:45 AM EDT Assessment/Plan documented in this encounterNevada Regional Medical [id number] History of Present illness Narrative* Perlita Meeks MD - 04/15/2024 2:30 PM EDT Assessment/Plan begin anti vegf documented in this encounterNevada Regional Medical [id number] Hospital Discharge instructions Follow Up Care 02/28/2024 08:07:26 With:MARTHA LYMAN, Taz Abraham, MICHAELL Address: [address] [place] [id number] When: Unknown [facility] 07-10-2024 Hospital Discharge instructions Patient Education 02/28/2024 08:04:31 Benign Prostatic Hyperplasia Benign Prostatic Hyperplasia Benign prostatic hyperplasia (BPH) is an enlarged prostate gland that is caused by the normal agingprocess. The prostate may get bigger as a man gets older. The condition is not caused by cancer. The prostate is a walnut-sized gland that is involved in the production of semen. It is located in front of the rectum and below the bladder. The bladder stores urine. The urethra carries stored urine ou t of the body. An enlarged prostate can press on the urethra. This can make it harder to pass urine. The buildup of urine in the bladder can cause infection. Back pressure and infection may progress to bladder damage and kidney (renal) failure. What are the causes? This condition is part of the normal aging process. However, not all men develop problems from thiscondition. If the prostate enlarges away from the urethra, urine flow will not be blocked. If it enlarges toward the urethra and compresses it, there will be problems passing urine. What increases the risk? This condition is more likely to develop in men older than 50 years. What are the signs or symptoms? Symptoms of this condition include: Getting up often during the night to urinate. Needing to urinate frequently during the day. Difficulty starting urine flow. Decrease in size and strength of your urine stream. Leaking (dribbling) after urinating. Inability to pass urine. This needs immediate treatment. Inability to completely empty your bladder. Pain when you pass urine. This is more common if there is also an infection. Urinary tract infection (UTI). How is this diagnosed? This condition is diagnosed based on your medical history, a physical exam, and your symptoms. Tests will also be done, such as: A post-void bladder scan. This measures any amount of urine that may remain in your bladder after you finish urinating. A digital rectal exam. In a rectal exam, your health care provider checks your prostate by putting a lubricated, gloved finger into your rectum to feel the back of your prostate gland. This exam detects the size of your gland and any abnormal lumps or growths. An exam of your urine (urinalysis). A prostate specific antigen (PSA) screening. This is a blood test used to screen for prostate cancer. An ultrasound. This test uses sound waves to electronically produce a picture of your prostate gland. Your health care provider may refer you to a specialist in kidney and prostate diseases (urologist). How is this treated? Once symptoms begin, your health care provider will monitor your condition (active surveillance or watchful waiting). Treatment for this condition will depend on the severity of your condition. Treatment may include: Observation and yearly exams. This may be the only treatment needed if your condition and symptoms are mild. Medicines to relieve your symptoms, including: ?Medicines to shrink the prostate. ?Medicines to relax the muscle of the prostate. Surgery in severe cases. Surgery may include: ?Prostatectomy. In this procedure, the prostate tissue is removed completely through an open incision or with a laparoscope or robotics. ?Transurethral resection of the prostate (TURP). In this procedure, a tool is inserted through the opening at the tip of the penis (urethra). It is used to cut away tissue of the inner core of the prostate. The pieces are removed through the same opening of the penis. This removes the blockage. ?Transurethral incision (TUIP). In this procedure, small cuts are made in the prostate. This lessens the prostate's pressure on the urethra. ?Transurethral microwave thermotherapy (TUMT). This procedure uses microwaves to create heat. The heat destroys and removes a small amount of prostate tissue. ?Transurethral needle ablation (TUNA). This procedure uses radio frequencies to destroy and remove a small amount of prostate tissue. ?Interstitial laser coagulation (ILC). This procedure uses a laser to destroy and remove a small amount of prostate tissue. ?Transurethral electrovaporization (TUVP). This procedure uses electrodes to destroy and remove a small amount of prostate tissue. ?Prostatic urethral lift. This procedure inserts an implant to push the lobes of the prostate away from the urethra. Follow these instructions at home: Take [id number] and prescription medicines only as told by your health care provider. Monitor your symptoms for any changes. Contact your health care provider with any changes. Avoid drinking large amounts of liquid before going to bed or out in public. Avoid or reduce how much caffeine or alcohol you drink. Give yourself time when you urinate. Keep all follow-up visits. This is important. Contact a health care provider if: You have unexplained back pain. Your symptoms do not get better with treatment. You develop side effects from the medicine you are taking. Your urine becomes very dark or has a bad smell. Your lower abdomen becomes distended and you have trouble passing urine. Get help right away if: You have a fever or chills. You suddenly cannot urinate. You feel light-headed or very dizzy, or you faint. There are large amounts of blood or clots in your urine. Your urinary problems become hard to manage. You develop moderate to severe low back or flank pain. The flank is the side of your body between the ribs and the hip. These symptoms may be an emergency. Get help right away. Call 911. Do not wait to see if the symptoms will go away. Do not drive yourself to the hospital. Summary Benign prostatic hyperplasia (BPH) is an enlarged prostate that is caused by the normal aging process. It is not caused by cancer. An enlarged prostate can press on the urethra. This can make it hard to pass urine. This condition is more likely to develop in men older than 50 years. Get help right away if you suddenly cannot urinate. This information is not intended to replace advice given to you by your health care provider. Make sure you discuss any questions you have with your health care provider. Document Revised: 02/23/2022 Document Reviewed: 02/23/2022 Elsevier Patient Education 2022 [employer] Follow Up Care 02/05/2024 13:59:39 With:MARTHA LYMAN, Taz Abraham, URL Address: [address] [address]- When: Unknown [facility] 06-17-2024 Hospital Discharge instructions Patient Education 02/05/2024 13:23:53 EU - Urolift Discharge Instructions (Custom) Urolift Some men may experience discomfort after the procedure. On occasion, some bloody discharge may be apparent from the penis. You may have soreness in the lower abdomen, and it may be uncomfortable to sit. You may experience the need to urinate more frequently and with greater urgency. These are all normal reactions to the procedure. It is important to take care of yourself the next couple of days to facilitate a speedy recovery. The following are some suggestions: -Have someone drive you home after the procedure. -Drink plenty of water; 8 10oz glasses per day. If your urine looks dark yellow, you are probably not drinking enough water. -Take your medications as prescribed -If you have a catheter placed, do not engage in strenuous activity until your catheter has been removed. You may take a shower but avoid a bath while you have a catheter. - In the event you have to go home with a catheter, you may notice leakage of urine and/or yellow discharge/blood around the catheter. This is normal and no cause to be alarmed; UNLESS you are havingsignificant pain associated with the leakage or the leakage does not stop. -You can use Tylenol or Advil for discomfort. Use AZO (over the counter) for burning with urination It is normal to have some blood in your urine after surgery. One day it may be clear, and the next day it might be bloody. Do not be alarmed, this can last a week and sometimes longer. It is normal to feel like you have to urinate very often but nothing comes out. You may feel like you have to urinate again, or feel pressure in the pelvic area, even right after you just urinated. You may leak and not make it to the bathroom. These are called bladder spasms and are common after the procedure. It is normal to have some discomfort after the procedure. This can last up to 4 weeks and includes:pelvic ache, urinary frequency, and urinary urgency. Most patients report symptoms getting better within 2 weeks. Finish the antibiotic which you have already started If you were given drugs to make you drowsy or pain medication follow these instructions: -You should spend the remainder of the day and evening resting -You should not attempt to walk, including going to the bathroom without assistance. You may be lightheaded from the medication you received. -Eat light today to avoid nausea. You should be able to return to your normal diet 24 to 36 hours after your procedure. -For the next 24 hours, do not consume alcohol, attempt to drive, use power tools, sign important documents or make important decisions. After that only do so if you feel perfectly normal and alert. -Follow carefully any verbal or written instructions your surgeon may give you. You should contact your physician if you experience any of the following: -Temperature above 101.5 -Excessive urinary bleeding or bleeding from the penis -Continuous bladder spasms -Painful, swollen and/or inflated testicle(s) or scrotum. -Unable to void spontaneously or the indwelling catheter is not draining urine or is blocked -Bright velarde red urine that does not stop after 3 days -Unable to urinate after 7-8 hours or bladder feeling full and you can t urinate -If you have excessive or persistent pain, swelling, bleeding, nausea, vomiting, or any problems, you should first call your surgeon for advice. If you are unable to contact your surgeon, seek help from a hospital emergency room. If your doctor suggests that you go to the emergency room for catheterization for inability to urinate, be sure to tell the facility personnel to use a Coude (pronouncedcoo-day) tipped catheter. Follow Up Care 11/20/2023 14:00:17 With:Taz THOMAS Address: [address] [facility] (1) When: Unknown Comments:Please arrange for a follow-up next week so we can remove your catheter for a voiding trial.Some discharge instructions have been provided.Push fluids to keep the urine clear. Lang [facility]06-17-2024 Note [id number]#1.00Rashawn [facility] 01-15-2024 Hospital Discharge instructions Patient Education 01/15/2024 16:46:53 Indwelling Urinary Catheter Insertion, Care After Indwelling Urinary Catheter Insertion, Care After This sheet gives you information about how to care for yourself after your procedure. Your health care provider may also give you more specific instructions. If you have problems or questions, contact your health care provider. What can I expect after the procedure? After the procedure, it is common to have: Slight discomfort around your urethra where the catheter enters your body. Follow these instructions at home: General instructions Keep the drainage bag at or below the level of your bladder. By doing this, your urine can only drain out instead of going back into your body. Secure the catheter tubing and drainage bag to your leg or thigh to keep it from moving. Check the catheter tubing regularly to make sure there are no kinks or blockages. Take showers daily to keep the catheter clean. Do not take a bath. Do not pull on your catheter. Disconnect the tubing and drainage bag as little as possible. Empty the drainage bag every 2 4 hours, or more often if needed. Do not let the bag get completely full. Wash your hands with soap and water before and after touching the catheter, tubing, or drainage bag. Do not let the drainage bag or catheter tubing touch the floor. Drink enough fluids to keep your urine pale yellow, or as told by your health care provider. How to remove the catheter Remove the catheter only if told by your health care provider. Follow instructions from your healthcare provider about when and how to remove the catheter. For most catheters, you will need to take the following steps: 1.Prepare your supplies. You will need a: Syringe. This would be given to you by your health care provider. Towel. Wastebasket. 2.Empty the drainage bag if needed. 3.Wash your hands with soap and warm water. 4.Remove the tape that secures the catheter to your leg or thigh. 5.Get into a comfortable position, such as: Lying down with your head raised on pillows and your knees pointing to the ceiling. Sitting on a chair or the edge of a bed. 6.Place the towel under you to catch any spilled urine. 7.Put the syringe into the balloon port of the catheter. Use a firm push and twist motion to fit the syringe into the balloon port. 8.The water from the balloon will empty into the syringe. 9.Gently pull out the catheter once the balloon is empty. If the catheter doesn't slide easily, do not use force. Let your health care provider know that youare not able to remove the catheter. 10.Throw the used catheter and the syringe in the wastebasket. 11.Wipe any spilled urine or water with the towel. 12.Wash your hands with soap and warm water. Safety Let your health care provider know if: Your bladder is full, but you are not able to urinate. You have removed the catheter, but you are not able to urinate after 8 hours. Contact a health care provider if: Your urine: ?Looks cloudy. ?Has a bad smell. ?Stops flowing into the drainage bag. Your catheter: ?Gets clogged. ?Starts to leak. You feel pain or pressure in the bladder area. You have back pain. Your drainage bag or tubing looks dirty. Get help right away if: You have a fever or chills. You have severe pain in your back or your lower abdomen. You have warmth, redness, swelling, or pain in the urethra area. You notice blood in your urine. Your catheter gets pulled out. Summary Wash your hands with soap and water before and after touching the catheter, tubing, or drainage bag. Do not pull on your catheter or try to remove it. Keep the drainage bag at or below the level of your bladder, but do not let the drainage bag or catheter tubing touch the floor. Get help right away if you have a fever, chills, or any other signs of infection. This information is not intended to replace advice given to you by your health care provider. Make sure you discuss any questions you have with your health care provider. Document Revised: 10/27/2021 Document Reviewed: 07/23/2021 [employer] Patient Education 2021 [employer]. Follow Up Care 01/15/2024 16:18:08 With:REID BROOKE Address: [address] [place], [place] [id number] [facility] (1) When:Within 3 Day(s) [facility]04-04-2024 NoteHNO ID: [id number] Author: ESAU TRUONG APRN.MO Service: ? Author Type: Nurse Specialist Type: Progress Notes Filed: 11/29/2023 07:04 Note Text: [facility] NOTE NAME: NICOLE LORA [facility] NO.: [id number] DATE OF SERVICE: 11/23/2023 ATTENDING PHYSICIAN: MO Yip [facility] Chart Note REASON FOR VISIT: The patient is a resident of [facility]. This is a skilled visit for COPD with respiratory failure history and other medical concerns. Upon entering the room, found the patient calm, alert, sitting in bed. The patient just completed morning meal. The patient does not appear to be in distress or discomfort. The patient states feels well today. has been working with therapy and feels good. The patient states has no pain, no cough, no shortness of breath. No fever, chills, or nausea. States his appetite is good and bowels have been moving. has been drinking fluids. Denies urinary symptoms. The patient states he feels as though he is ready to go home. Did express to the patient we will continue to monitor and work with therapy and patient is understanding of this. MEDICATIONS: Have been reviewed. EXAMINATION: Temp 98.0, blood pressure 131/78, pulse 74, respirations 16, pulse ox 94% on supplemental oxygen, weight 294 pounds. Respiratory: Respirations are easy and unlabored with the patient at rest. Lung sounds are clear. Heart: Heart rate and rhythm regular. Abdomen: Soft and nontender with palpation. Bowel sounds present x4. Extremities: Mildly edematous bilaterally. IMPRESSION AND PLAN: 1. Chronic obstructive pulmonary disease with respiratory failure history, on DuoNeb, budesonide. Continue supplemental oxygen. The patient does wear at home. 2. Change in mental status. Continue to monitor mentation. The patient is calm and appropriate at this time. 3. Chronic kidney disease with hypernatremia and hyperkalemia, labs pending. 4. History of congestive heart failure with fluid overload. At this time, the patient appears to be well compensated, on torsemide. 5. Diabetes. The patient has a glycemic reading of 240, on Semglee, Jentadueto, Jardiance. We will continue to monitor blood sugars and adjust based on needs. Also on Humalog per sliding scale. DICTATED BY: MO Yip/SUSYT JOB# [id number] [email or web address]04-04-2024 History of Present illness Narrative* Esau Truong APRN.MO - 11/23/2023 12:00 AM EDT [facility] NOTE NAME: NICOLE LORA [facility] NO.: [id number] DATE OF SERVICE: 11/23/2023 ATTENDING PHYSICIAN: MO Yip [facility] Chart Note REASON FOR VISIT: The patient is a resident of [facility]. This is a skilled visit for COPD with respiratory failure history and other medical concerns. [facility], found the patient calm, alert, sitting in bed. The patient just completed morning meal. The patient does not appear to be in distress or discomfort. The patient states feels well today. [facility] has been working with therapy and feels good. The patient states has no pain, no cough, no shortnessof breath. No fever, chills, or nausea. States his appetite is good and bowels have been moving. States has been drinking fluids. Denies urinary symptoms. The patient states he feels as though he is ready to go home. Did express to the patient we will continue to monitor and work with therapy and patient is understanding of this. MEDICATIONS: Have been reviewed. EXAMINATION: Temp 98.0, blood pressure 131/78, pulse 74, respirations 16, pulse ox 94% on supplemental oxygen, weight 294 pounds. Respiratory: Respirations are easy and unlabored with the patient at rest. Lung sounds are clear. Heart: Heart rate and rhythm regular. Abdomen: Soft and nontender with palpation. Bowel sounds present x4. Extremities: Mildly edematous bilaterally. IMPRESSION AND PLAN: 1. Chronic obstructive pulmonary disease with respiratory failure history, on DuoNeb, budesonide. Continue supplemental oxygen. The patient does wear at home. 2. Change in mental status. Continue to monitor mentation. The patient is calm and appropriate at this time. 3. Chronic kidney disease with hypernatremia and hyperkalemia, labs pending. 4. History of congestive heart failure with fluid overload. At this time, the patient appears to bewell compensated, on torsemide. 5. Diabetes. The patient has a glycemic reading of 240, on Semglee, Jentadueto, Jardiance. We will continue to monitor blood sugars and adjust based on needs. Also on Humalog per sliding scale. DICTATED BY: MO Yip/AQT JOB# [id number] [facility] Evaluation + Plan note Extracted from: Title:[facility]OPD visit Author:Taz THOMAS MD Date: 11/20/23 Impression and Plan Assessment and Plan: Diagnosis: BPH with obstruction/lower urinary tract symptoms (ZDS68-JI N40.1, Billing Diagnosis, Medical), Other obstructive and reflux uropathy (DSN07-CX N13.8, Discharge, Medical), Feeling of incomplete bladder emptying (QNG95-XH R39.14, Billing Diagnosis, Medical), Urinary retention (YAD63-WI R33.9, Billing Diagnosis, Medical). Additional Plan of Care and/or Course of Treatment: Additional Plan of Care and/or Course of Treatment: As noted above discussed results of complex multichannel urodynamics as well as a cystoscopic evaluation. The detrusor contraction capability was difficult to assess, possibly secondary to stool in the vault distorting the bladder pressure reading which subsequently distorts the reading of the detrusor pressure. He does however have prolonged urination and he did void 250 cc but with his significant residual. Discussed options. These include an indwelling Elliott catheter and assumption that the bladder simply does not work well versus proceeding with a minimally invasive prostate procedure in the hopes of rating him of the catheter. Certain no guarantees can be made. The risk of continued urinary retention despite surgery is a possibility. Given his overall comorbidities I would like to avoid an anesthesia procedure with its inherent risk of surgery itself as well as blood clots etc. They agree with the plan and will proceed with a UroLift. Will schedule Urolift. The procedural risks, benefits, details, and treatment alternatives have been discussed with the patient. These include bleeding, infection, continued problems urinating, increased frequency with urgency during the healing process, painful urination, need for indwelling catheter after the procedure, and the need for additional procedures in the future, among others. The risk of penile erection problems and urinary leakage is less after this procedure than some others, but could still occur. Full informed consent has been obtained. Will order Local anesthesia.. Future Appointments Appointment Date:01/31/2024 10:30:00 AM Scheduled Provider: Location:[facility] Appointment Type:Urology CALL PAT FT Appointment Date:02/05/2024 01:15:00 PM Scheduled Provider: Location:[facility] Appointment Type:Urology FT Future Scheduled Tests Radiology* XR Chest 2 Views 05/15/23 * XR Chest 2 Views 05/15/23 [facility]04-01-2024 NoteHNO ID: [id number] Author: ALVARO HERRERA, ? Service: ? Author Type: Physician Type: Progress Notes Filed: 11/22/2023 11:38 Note Text: [facility] NOTE NAME: NICOLE LORA [facility] NO.: [id number] DATE OF SERVICE: 11/20/2023 ATTENDING PHYSICIAN: Alvaro Herrera [facility] PATIENT HISTORY AND PHYSICAL: HISTORY OF PRESENT ILLNESS: The patient is a 63-year-old male, who is admitted to us from [facility] with a diagnosis of altered mental status secondary to metabolic encephalopathy, acute kidney injury on top of chronic kidney disease, acute respiratory distress with hypoxia secondary to fluid overload, diastolic congestive heart failure, chronic lymphedema, chronic respiratory failure with hypercapnia, diabetes mellitus type 2 with diabetic neuropathy and chronic kidney disease, morbid obesity, history of hyperosmolality and hypernatremia, hyperkalemia, hypertension, hypertensive chronic kidney disease, chronic lymphedema, acute urinary retention secondary to obstructive uropathy requiring indwelling Elliott catheter, history of pneumonia June 2023, 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 He was initially admitted to the hospital after developing altered mental status with increasing confusion. He had also been experiencing increasing shortness of breath. Evaluation in the hospital revealed him to be in acute on chronic hypoxic respiratory failure. He was also treated for acute kidney injury on top of chronic kidney disease. He was found to have fluid overload. Full details regarding his hospitalization are not available. His condition was stabilized and improved then he is now admitted to our facility for continued therapy prior to returning back to his apartment where he lives by himself. REVIEW OF SYSTEMS: He is currently sitting up in bed. He is alert and responsive. He is somewhat a vague and poor historian. He is indicating that he ended up in the hospital due to increasing confusion. He claims that his oxygen tube was crimped, which apparently resulted in acute on chronic hypoxic respiratory failure. He claims that he developed respiratory problems after being treated for pneumonia this past May 2023. He does use supplemental oxygen at home. He has had no change in his vision or hearing. He denies any chest pain, angina, palpitations, previous heart attacks, heart surgeries or pacemakers. He does have diastolic heart failure and apparently was treated for fluid overload while in the hospital. He does have underlying COPD. His appetite has been good. No bleeding ulcers, hepatitis, or melena. No prior strokes or seizures. He is diabetic type 2. No previous bleeding problems or blood clots. He does have underlying chronic kidney disease. It appears that he may have also been treated for hypernatremia and hyperkalemia while in the hospital. The patient apparently has also had obstructive uropathy resulting in urinary retention requiring indwelling Elliott catheter. He is to follow up with Urology today. FAMILY HISTORY: Significant for hypertension. SOCIAL/FUNCTIONAL HISTORY: He denies smoking, alcohol abuse. 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 He has been living in an apartment by himself. MEDICATIONS: Acetazolamide 250 mg b.i.d., atorvastatin 40 mg at h.s. for hyperlipidemia, budesonide inhaler b.i.d., duloxetine 60 mg daily, fluconazole 200 mg daily for fungal infection, gabapentin 300 mg t.i.d., Humalog sliding scale insulin coverage, hydralazine 10 mg b.i.d., albuterol/Atrovent aerosol treatments 4 times a day, Jardiance 10 mg daily, linagliptin/metformin 2.12/999 daily, melatonin at h.s., pantoprazole 40 mg daily, ropinirole 1 mg at bedtime, Semglee insulin 35 units subcu at bedtime, Senokot b.i.d., tamsulosin 0.4 mg daily, and torsemide 40 mg daily. ALLERGIES: PENICILLIN G. EXAMINATION: Afebrile, vital signs stable. He is in no distress. He is on supplemental oxygen. He does appear chronically ill, much older than his stated age. HEENT: Extraocular movements intact, sclerae nonicteric. Ears intact. Lungs: Clear with decreased breath sounds bilaterally. Heart: Regular. Abdomen: Soft, obese, nontender. Extremities with what appears to be chronic pedal edema/lymphedema. He is status post left transmetatarsal amputation. He does have generalized weakness. IMPRESSION: 1. Acute on chronic hypoxic respiratory failure with underlying chronic obstructive pulmonary disease and hypercapnia-we will continue to monitor respiratory status closely. Maintain current respiratory treatments and supplemental oxygen. 2. Altered mental status secondary to metabolic encephalopathy-resolved. He appears back at baseline. 3. Acute kidney injury on top of chronic kidney disease with hypernatremia and hyperkalemia-we (more content not included)...[facility] 11-20-2023 [id number]#1.00[facility] [id number] [facility]04-01-2024 History of Present illness Narrative* Alvaro Herrera - 11/20/2023 12:00 AM EDT [facility] NOTE NAME: NICOLE LORA [facility] NO.: [id number] DATE OF SERVICE: 11/20/2023 ATTENDING PHYSICIAN: Alvaro Herrera [facility] PATIENT HISTORY AND PHYSICAL: HISTORY OF PRESENT ILLNESS: The patient is a 63-year-old male, who is admitted to us from [facility] with a diagnosis of altered mental status secondary to metabolic encephalopathy, acute kidney injury on top of chronic kidney disease, acute respiratory distress with hypoxia secondary to fluid overload, diastolic congestive heart failure, chronic lymphedema, chronic respiratory failure with hypercapnia, diabetes mellitus type 2 with diabetic neuropathy and chronic kidney disease, morbid obesity, history of hyperosmolality and hypernatremia, hyperkalemia, hypertension, hypertensive chronic kidney disease, chronic lymphedema, acute urinary retention secondary to obstructive uropathy requiring indwelling Elliott catheter, history of pneumonia June 2023, previous lefttransmetatarsal amputation for nonhealing diabetic foot wounds, peripheral vascular disease, and generalized weakness and debility. He was initially admitted to the hospital after developing altered mental status with increasing confusion. He had also been experiencing increasing shortness of breath. Evaluation in the hospital revealed him to be in acute on chronic hypoxic respiratory failure. Hewas also treated for acute kidney injury on top of chronic kidney disease. He was found to have fluid overload. Full details regarding his hospitalization are not available. His condition was stabilized and improved then he is now admitted to our facility for continued therapy prior to returning back to his apartment where he lives by himself. REVIEW OF SYSTEMS: He is currently sitting up in bed. He is alert and responsive. He is somewhat a vague and poor historian. He is indicating that he ended up in the hospital due to increasing confusion. He claims that his oxygen tube was crimped, which apparently resulted in acute on chronic hypoxic respiratory failure. He claims that he developed respiratory problems after being treated for pneumonia this past May 2023. He does use supplemental oxygen at home. He has had no change in his vision or hearing. He denies any chest pain, angina, palpitations, previous heart attacks, heart surgeries or pacemakers. He does have diastolic heart failure and apparently was treated for fluid overload while in the hospital. He does have underlying COPD. His appetite has been good. No bleeding ulcers, hepatitis, or melena. No prior strokes or seizures. He is diabetic type 2. No previous bleeding problems or blood clots. He does have underlying chronic kidney disease. It appears that he may have also been treated for hypernatremia and hyperkalemia while in the hospital. The patient apparently has also had obstructive uropathy resulting in urinary retention requiring indwelling Elliott catheter. He is to follow up with Urology today. FAMILY HISTORY: Significant for hypertension. SOCIAL/FUNCTIONAL HISTORY: He denies smoking, alcohol abuse. 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 He hasbeen living in an apartment by himself. MEDICATIONS: Acetazolamide 250 mg b.i.d., atorvastatin 40 mg at h.s. for hyperlipidemia, budesonideinhaler b.i.d., duloxetine 60 mg daily, fluconazole 200 mg daily for fungal infection, gabapentin 300 mg t.i.d., Humalog sliding scale insulin coverage, hydralazine 10 mg b.i.d., albuterol/Atrovent aerosol treatments 4 times a day, Jardiance 10 mg daily, linagliptin/metformin 2.12/999 daily, melatonin at h.s., pantoprazole 40 mg daily, ropinirole 1 mg at bedtime, Semglee insulin 35 units subcu atbedtime, Senokot b.i.d., tamsulosin 0.4 mg daily, and torsemide 40 mg daily. ALLERGIES: PENICILLIN G. EXAMINATION: Afebrile, vital signs stable. He is in no distress. He is on supplemental oxygen. He does appear chronically ill, much older than his stated age. HEENT: Extraocular movements intact, sclerae nonicteric. Ears intact. Lungs: Clear with decreased breath sounds bilaterally. Heart: Regular.Abdomen: Soft, obese, nontender. Extremities with what appears to be chronic pedal edema/lymphedema. He is status post left transmetatarsal amputation. He does have generalized weakness. IMPRESSION: 1. Acute on chronic hypoxic respiratory failure with underlying chronic obstructive pulmonary disease and hypercapnia-we will continue to monitor respiratory status closely. Maintain current respiratory treatments and supplemental oxygen. 2. Altered mental status secondary to metabolic encephalopathy-resolved. He appears back at baseline. 3. Acute kidney injury on top of chronic kidney disease with hypernatremia and hyperkalemia-we willmonitor his fluid balance and renal function closely. We will obtain followup BMP. 4. History of diastolic heart failure with fluid overload-he appears to be compensated. Monitor once again his fluid balance closely, maintain current diuretic therapy. 5. Diabetes mellitus type 2 - maintain current diabetic regimen, monitor blood sugars closely, makeadjustments as needed. 6. Functional assessment-he does have generalized weakness. He will be receiving rehab services foroverall strengthening and conditioning. Overall condition and prognosis is quite guarded. We will obtain followup labs including CBC and BMP. His goal is to return back to his apartment where he doeslive by himself. DICTATED BY: MD KORI Cho/MARCIA JOB# [id number] [facility]24 Progress note Author Hood Zacarias [facility] November 17, 2023 12:18pm Note Date/Time November 17, 2023 12: 18pm [facility] [address] [place] [address] Nephrology Progress Note Signed Patient: Nicole Lora MR#: [id number] [birth year] : 1960 Acct:[id number] Age/Sex: 63 / M Adm Date: 4 Loc: Room: [address] [place] [address] Type: ADM IN Attending Dr: Manish Fu MD Copies to: ~ Date of Service: 11/17/2023 Subjective Subjective Narrative: This is a 63-year-old male with a medical history of CKD, DM, HTN, TC, COPD, CHF was transferred from [facility] for shortness of breath and hypercapnic respiratory failure. Patient was admitted at [facility] on September 2023 for COPD and CHF. During hospitalization he wasalso found to have AMY on CKD due to the cardiorenal syndrome. His renal function improved with diuresis. Patient was also found to have urine retentionand had Elliott catheter. Patient was readmitted at [facility] and his diuretic regimen was adjusted. His labs in ER showed AMY with serum creatinine 4.9 mg/dL and hyperkalemia with serum potassium 5.3 mmol/L and anion gap of 18. Patient ABG showed pH 7.25 pCO2 58 oxygen saturation 57. He was placed on BiPAP briefly. Patient on arrival at [facility] had ABG which showed pH 7.19, pCO2 65.9 pO2 90.9%. Patient has a CKD dueto the longstanding DM and HTN baseline creatinine around 1.5 to 1.9 g/dL. Nephrology is consulted for AMY on CKD management. Interval history: Patient is up in the chair, he continues to do better with improvement of shortness of breath. Patient is continued to have good urine output more than 3 L daily on torsemide 40 mg daily. He still has edema however it is improving. Renal function did improve and stable at 1.4 mg/dL creatinine. Potassium did improve with diuresis down to 4.5 mmol/L. He has mild hyponatremia sodium up to149 mmol/L. Patient is waiting for SNF placement. Exam Physical Exam Vital Signs: Temp Pulse Resp BP Pulse Ox O2 Del Method O2 Flow Rate 36.4 C 72 18 186/88 H 96 Nasal Cannula 4 11/17/23 11:11/17/23 11:11/17/23 11:11/17/23 11:11/17/23 11:11/17/23 09:15 11/17/23 09:15 FiO2 40 11/17/23 00:50 Narrative: General: Morbidly obese, mild respiratory distress on high flow oxygen. HEENT: Mild pallor with no jaundice. Mucous membranes are moist. Neck: no JVD no bruit. Heart: S1-S2. RRR Respiratory: Decreased breath sounds bilaterally due to body habitus. No wheezing no crackles Abdomen: Soft, positive bowel sounds,no tenderness. Difficult to palpate organs. : Indwelling Elliott catheter because of recurrent urine retention, clear urine Neurology: Awake alert oriented x3. No focal deficits Extremity. No cyanosis. +2 edema of lower extremity Skin: No skin rash Indwelling Elliott catheter in place which is draining light yellow urine Objective Intake and Output I&O: Intake & Output 11/14/23 11/15/23 11/16/23 11/17/23 23:59 23:59 23:59 23:59 Intake Total 1100 / 1100 450 / 450 1800 / 1800 50 / 50 Output Total 3825 / 3825 5550 / 5550 3000 / 3000 575 / 575 Balance -2725 / -2725 -5100 / -5100 -1200 / -1200 -525 / -525 Weight 142.4 kg 144.2 kg 132.9 kg 133.2 kg Meds and Allergies Meds: Active Medications Acetaminophen (Acetaminophen 325 Mg Tablet) 650 mg PO Q6HR PRN PRN Reason: Pain Scale 1 - 3 or fever Stop: 11/10/24 19:44 Last Admin: 11/16/23 20:18 Dose: 650 mg Albuterol/Ipratropium (Ipratropium/Albuterol 0.5-3 Mg 3 Ml Ampul.Neb) 3 ml INHALATION QID.RESP JIMMIE Stop: 11/12/24 19:59 Last Admin: 11/17/23 08:11 Dose: 3 ml Atorvastatin Calcium (Atorvastatin 40 Mg Tablet) 40 mg PO QHS JIMMIE Stop: 11/12/24 21:59 Last Admin: 11/16/23 21:29 Dose: 40 mg Budesonide (Budesonide 0.5 Mg/2 Ml Ampul.Neb) 0.5 mg INHALATION BID [facility] Stop: 11/12/24 20:59 Last Admin: 11/17/23 08:11 Dose: 0.5 mg Dextrose (Dextrose 50% In Water 25 Gm/50 Ml Syringe) 0 gm IV-PUSH PRN PRN PRN Reason: Hypoglycemia Stop: 11/10/24 20:56 Duloxetine HCl (Duloxetine 60 Mg Capsule.Dr) 60 mg PO DAILY [facility] Stop: 11/13/24 08:59 Last Admin: 11/17/23 09:13 Dose: 60 mg Gabapentin (Gabapentin 300 Mg Capsule) 300 mg PO QHS [facility] Stop: 11/14/24 21:59 Last Admin: 11/16/23 21:02 Dose: Not Given Glucose (Dextrose 40% Gel 15 Gm Tube) 0 gm PO PRN PRN PRN Reason: Hypoglycemia Stop: 11/10/24 20:56 Last Admin: 11/12/23 17:38 Dose: 30 gm Guaifenesin (Guaifenesin 600 Mg Tab.Er.12h) 1,200 mg PO BID [facility] Stop: 11/12/24 20:59 Last Admin: 11/17/23 09:13 Dose: 1,200 mg Hydralazine HCl (Hydralazine 10 Mg Tablet) 10 mg PO BID [facility] Stop: 11/12/24 20:59 Last Admin: 11/17/23 09:13 Dose: 10 mg Fluconazole (Diflucan) 200 mg in 100 mls @ 100 mls/hr IV Q24H [facility] Last Admin: 11/16/23 14:09 Dose: 100 mls/hr Ceftriaxone Sodium (Rocephin) 1 gm in 50 mls @ 100 mls/hr IV Q24H [facility] Last Admin: 11/16/23 13:20 Dose: 100 mls/hr Insulin Aspart (Insulin Aspart 300 Units/3 Ml Insuln.Pen) 0 units SUBCUT TID.WM.HS [facility]; Protocol Stop: 11/10/24 21:59 Last Admin: 11/17/23 09:13 Dose: Not Given Insulin Glargine (Insulin Glargine 300 Units/3 Ml Insuln.Pen) 35 units SUBCUT QHS [facility] Stop: 11/10/24 21:59 Last Admin: 11/16/23 21:31 Dose: 35 units Melatonin (Melatonin 5 Mg Tablet) 5 mg PO QHS PRN PRN Reason: Insomnia Stop: 11/10/24 19:44 Last Admin: 11/14/23 21:10 Dose: 5 mg Ondansetron HCl (Ondansetron 4 Mg/2 Ml Vial) 4 mg IV-PUSH Q8H PRN PRN Reason: Nausea And Vomiting Stop: 11/10/24 19:44 Last Admin: 11/14/23 11:50 Dose: 4 mg Pantoprazole Sodium (Pantoprazole 40 Mg Tablet.Dr) 40 mg PO DAILY JIMMIE Stop: 11/13/24 08:59 Last Admin: 11/17/23 09:13 Dose: 40 mg Sennosides (Sennosides 8.6 Mg Tablet) 1 tab PO BID JIMMIE Stop: 11/10/24 20:59 Last Admin: 11/17/23 09:13 Dose: 1 tab Tamsulosin HCl (Tamsulosin 0.4 Mg Cap.Er.24h) 0.4 mg PO DAILY JIMMIE Stop: 11/13/24 08:59 Last Admin: 11/17/23 09:13 Dose: 0.4 mg Torsemide (Torsemide 20 Mg Tablet) 40 mg PO DAILY@0800 JIMMIE Stop: 11/13/24 09:44 Last Admin: 11/17/23 09:13 Dose: 40 mg Allergies Penicillins Allergy (Verified 10/06/23 20:32) Rash Results - Nephrology Labs 11/17/23 04:39 11/17/23 04:39 Labs: 11/17/23 04:39 BUN 44 H Creatinine 1.47 H Radiology Impressions Impressions - last 24 hours: Any impression(s) listed above is documentation that was entered by the reading physician into a diagnostic report(s) for Nicole Lora. I have reviewed the report(s) and am incorporating any findings in the treatment plan of this patient where applicable. A&P - Nephrology Assessment/Plan (1) Hypernatremia: Assessment/Problem Details: Sodium is up to 149 mmol/L with diuresis and increased insensible loss with COPD. (2) Metabolic alkalosis with respiratory acidosis: Assessment/Problem Details: Patient has metabolic alkalosis in the setting of respiratory acidosis that exacerbated with diuresis. He needed diuretics for volume overload and shortness of breath. (3) Acute kidney injury superimposed on CKD: Assessment/Problem Details: He has AMY possibly due to the ATN in setting of relative hypotension and prolonged hypovolemia that improved after improvement of the blood pressure. Patient currently has good urine output and creatinine is down to baseline. (4) CKD (chronic kidney disease) stage 3, GFR 30-59 ml/min: Assessment/Problem Details: He has a CKD due to longstanding DM and HTN with baseline serum creatinine 1.5 to 1.9 mg/dL. (5) Type 2 diabetes mellitus with diabetic chronic kidney disease: Assessment/Problem Details: Diabetes is controlled on insulin (6) Hypertensive chronic kidney disease with stage 1 through stage 4 chronic kidney disease, or unspecified chronic kidney disease: Assessment/Problem Details: Blood pressure is relatively low. Patient was on torsemide at home. (7) (HFpEF) heart failure with preserved ejection fraction: Assessment/Problem Details: Patient continues to have edema that is improving with diuresis (8) Chronic respiratory failure with hypercapnia: Assessment/Problem Details: He has a chronic hypercapnic respiratory failure due to the obesity hypoventilation syndrome and COPD. Plan * Discontinue water restriction and allow clear water 250 to 300 cc every 4-6 hours while awake. Patient does not need water restriction anymore. * Added acetazolamide 250 mg twice a day as bicarbonate has increased more than 14 in the setting of metabolic alkalosis and respiratory acidosis. * Continue torsemide 40 mg daily. Patient has good diuresis and has been -2 to 3 L daily that is needed as he still has significant edema and elevated blood pressure. * Hyperkalemia did improve with torsemide. He still on low potassium diet that can be discontinued once potassium drops below 4 mEq/L. * Renal function is back to baseline. He may restart Jentadueto if needed for diabetes control * Patient is current on ceftriaxone and fluconazole. Urine culture from Elliott catheter showed Enterobacter and Kaelyn albicans. Patient has indwelling Elliott catheter and he is supposed to follow-up with urology for cystometry and cystoscopy as outpatient. * Check renal function daily monitor input output Patient has generalized weakness and is being evaluated for SNF placement. Documented By: Hood Zacarias MD 11/17/23 1210 Signed By: <Electronically signed by MD Hood Zacarias> 11/17/23 1218 [facility] Work Phone: 1(145) 615-502803-28-2024 Progress note Author Manish Fu [facility] November 16, 2023 2:26pm Note Date/Time November 16, 2023 1:4 2pm [facility] [address] [place], [place] [id number] Hospitalist Progress Note Signed Patient: Nicole Lora MR#: [id number] [birth year] : 1960 Acct:[id number] Age/Sex: 63 / M Adm Date: 4 Loc: 4 Room: [address] [place] [address] Type: ADM IN Attending Dr: Manish Fu MD Copies to: ~ Date of Service: 11/16/2023 Subjective Subjective Narrative: Mental status significantly improved today. Patient notes that he is feeling a lot better, and actually request to go home. I did explain that he has been admitted to the hospital multiple times and needs further care at care home facility. He is agreeable to this plan at this time. No acute events noted overnight. Exam Physical Exam Vital Signs: Temp Pulse Resp BP Pulse Ox O2 Del Method O2 Flow Rate 97.8 F 70 20 169/80 H 95 Nasal Cannula 4 11/16/23 11:51 11/16/23 11:51 11/16/23 11:51 11/16/23 11:51 11/16/23 11:51 11/16/23 11:51 11/16/23 11:51 FiO2 40 11/16/23 00:14 Narrative: Narrative: General: Morbidly obese, middle-aged WM, resting in bed, awake, able to answer questions and follow commands HEENT: Mild pallor with no jaundice. Mucous membranes are moist. Neck: No JVD, no bruit. Heart: S1-S2. RRR Respiratory: Decreased breath sounds bilaterally due to body habitus. No wheezing, no crackles Abdomen: Soft, positive bowel sounds,no tenderness. Difficult to palpate organs. Neurology: Awake, alert and oriented x3. No focal deficits Extremity. No cyanosis. +2 edema of lower extremity Skin: No skin rash : Elliott catheter in place which is draining light yellow urine. Objective Lab Results 11/16/23 04:51 11/16/23 04:51 Meds Allergies and Active Meds Allergies Penicillins Allergy (Verified 10/06/23 20:32) Rash Active Meds: Active Medications Generic Name Dose Route Start Last Admin Trade Name Kyle PRN Reason Stop Dose Admin Acetaminophen 650 mg 11/11/23 19:45 Acetaminophen 325 Mg Tablet PO 11/10/24 19:44 Q6HR PRN Pain Scale 1 - 3 or fever Albuterol/Ipratropium 3 ml 11/13/23 20:00 11/16/23 11:42 Ipratropium/Albuterol 0.5-3 Mg 3 Ml Ampul.Neb INHALATION 11/12/24 19:59 3 ml QID.RESP JIMMIE Administration Atorvastatin Calcium 40 mg 11/13/23 22:00 11/15/23 21:12 Atorvastatin 40 Mg Tablet PO 11/12/24 21:59 40 mg QHS JIMMIE Administration Budesonide 0.5 mg 11/13/23 21:00 11/16/23 07:40 Budesonide 0.5 Mg/2 Ml Ampul.Neb INHALATION 11/12/24 20:59 0.5 mg BID JIMMIE Administration Dextrose 0 gm 11/11/23 20:57 Dextrose 50% In Water 25 Gm/50 Ml Syringe IV-PUSH 11/10/24 20:56 PRN PRN Hypoglycemia Duloxetine HCl 60 mg 11/14/23 09:00 11/16/23 09:08 Duloxetine 60 Mg Capsule.Dr PO 11/13/24 08:59 60 mg DAILY JIMMIE Administration Gabapentin 300 mg 11/15/23 22:00 11/15/23 21:13 Gabapentin 300 Mg Capsule PO 11/14/24 21:59 300 mg QHS JIMMIE Administration Glucose 0 gm 11/11/23 20:57 11/12/23 17:38 Dextrose 40% Gel 15 Gm Tube PO 11/10/24 20:56 30 gm PRN PRN Administration Hypoglycemia Guaifenesin 1,200 mg 11/13/23 21:00 11/16/23 09:08 Guaifenesin 600 Mg Tab.Er.12h PO 11/12/24 20:59 1,200 mg BID JIMMIE Administration Hydralazine HCl 10 mg 11/13/23 21:00 11/16/23 09:08 Hydralazine 10 Mg Tablet PO 11/12/24 20:59 10 mg BID JIMMIE Administration Fluconazole 200 mg in 100 mls @ 100 mls/hr 11/15/23 13:30 11/15/23 18:00 Diflucan IV 100 mls/hr Q24H JIMMIE Administration Ceftriaxone Sodium 1 gm in 50 mls @ 100 mls/hr 11/16/23 12:00 11/16/23 13:20 Rocephin IV 100 mls/hr Q24H JIMMIE Administration Insulin Aspart 0 units 11/11/23 22:00 11/16/23 12:37 Insulin Aspart 300 Units/3 Ml Insuln.Pen SUBCUT 11/10/24 21:59 3 units TID.WM.HS JIMMIE Administration Protocol Insulin Glargine 35 units 11/11/23 22:00 11/15/23 21:14 Insulin Glargine 300 Units/3 Ml Insuln.Pen SUBCUT 11/10/24 21:59 Not Given QHS JIMMIE Melatonin 5 mg 11/11/23 19:45 11/14/23 21:10 Melatonin 5 Mg Tablet PO 11/10/24 19:44 5 mg QHS PRN Administration Insomnia Ondansetron HCl 4 mg 11/11/23 19:45 11/14/23 11:50 Ondansetron 4 Mg/2 Ml Vial IV-PUSH 11/10/24 19:44 4 mg Q8H PRN Administration Nausea And Vomiting Pantoprazole Sodium 40 mg 11/14/23 09:00 11/16/23 09:07 Pantoprazole 40 Mg Tablet.Dr PO 11/13/24 08:59 40 mg DAILY JIMMIE Administration Sennosides 1 tab 11/11/23 21:00 11/16/23 09:07 Sennosides 8.6 Mg Tablet PO 11/10/24 20:59 1 tab BID JIMMIE Administration Tamsulosin HCl 0.4 mg 11/14/23 09:00 11/16/23 09:08 Tamsulosin 0.4 Mg Cap.Er.24h PO 11/13/24 08:59 0.4 mg DAILY JIMMIE Administration Torsemide 40 mg 11/14/23 09:45 11/16/23 09:08 Torsemide 20 Mg Tablet PO 11/13/24 09:44 40 mg DAILY@0800 JIMMIE Administration A&P - Hospitalist Assessment/Plan (1) Acute kidney injury superimposed on CKD: (2) Urine retention: (3) Obesity hypoventilation syndrome: (4) Hypertension: (5) Edema: (6) COPD (chronic obstructive pulmonary disease): (7) Lymphedema: (8) CHF (congestive heart failure): (9) Hyperkalemia: (10) Diabetes mellitus, type 2: (11) Diastolic heart failure: Plan AMY on CKD Stage III Hyperkalemia Significantly improved. Hyperkalemia still persist however. Diuretics have been restarted and patient appears to have improved respiratory status overall. Renal ultrasound did not demonstrate any acute findings. Nephrology following. Elliott catheter will be flushed daily to ensure adequate flow. Suspect hyperkalemia will improve with continued diuresis with dorsum ?AMY is likely secondary to volume depletion, post-obstructive etiology -Irrigate Elliott catheter daily -Continue torsemide -Continue with low-dose gabapentin nightly for neuropathy pain -Continue to hold empagliflozin and Jentadueto for now; restart in the upcoming day or 2 Acute complicated UTI from Chronic Indwelling Elliott Catheter Patient has a Elliott catheter in, getting IV ceftriaxone 2 g every 24 Urine culture is positive for 30,000 CFU per mL of Enterobacter and 75,000 CFU per mL of Kaelyn -Will continue IV ceftriaxone for now, will continue total 7-day course of antibiotic therapy, due to complicated UTI in male with catheter-despite low CFU Asthma/COPD Acute on Chronic Hypercapnic Respiratory Failure CO2 Narcosis Mental status significantly improved. Patient has been largely refusing BiPAP therapy nightly. -Continue DuoNebs 4 times daily -BiPAP nightly and with naps, if patient will tolerate Candiduria Suspect this may be contributing to his mental status changes as well Will -Initiate IV fluconazole daily, plan for 2 weeks treatment course Urine Retention Uremic Encephalopathy Acute metabolic encephalopathy Has had a Elliott catheter placed early this year, set up with urology follow-up on November 19. Daughter states Elliott catheter has been in for roughly 2 months now -Likely will require outpatient management of Elliott catheter, urology will follow-up as outpt -Treat UTI and candiduria, and optimize COPD regimen as well to improve mental status HTN Monitor BPs closely. Have been uncontrolled somewhat while inpatient. -Re-introduce antihypertensives slowly given his acute on chronic renal dysfunction Hyperkalemia -Diuretics restarted today, continue to monitor daily DM type II POC glucoses are controlled at this time. Hold all oral antihyperglycemic's including metformin ? 35 units glargine nightly ? Mealtime insulin 3 times daily ? Glucose checks ACHS Chronic Heart Failure with Preserved EF Some concern for mild volume overload, but patient does not appear grossly edematous. ? Echocardiogram performed on October 07 showed EF of 65 to 70% ? No indication to repeat echocardiogram this admission ? Restarted torsemide Left Lateral Foot Ulcer No acute active infection -Continue topical wound care recommendations CODE STATUS: Full code Disposition: Patient appears medically stable for discharge at this time. Will await insurance precertification Documented By: Manish Fu MD [id number] Signed By: <Electronically signed by Manish Fu MD> 11/16/23 7542 [facility] Work Phone: 1(323) 610-438603-28-2024 Progress note Author Hood Zacarias [facility] November 16, 2023 12:15pm Note Date/Time November 16, 2023 12: 15pm [facility] [address] [place] [address] Nephrology Progress Note Signed Patient: Nicole Lora MR#: [id number] [birth year] : 1960 Acct:[id number] Age/Sex: 63 / M Adm Date: 4 Loc: Room: [address] [place] [address] Type: ADM IN Attending Dr: Manish Fu MD Copies to: ~ Date of Service: 11/16/2023 Subjective Subjective Narrative: This is a 63-year-old male with a medical history of CKD, DM, HTN, TC, COPD, CHF was transferred from [facility] for shortness of breath and hypercapnic respiratory failure. Patient was admitted at [facility] on September 2023 for COPD and CHF. During hospitalization he wasalso found to have AMY on CKD due to the cardiorenal syndrome. His renal function improved with diuresis. Patient was also found to have urine retentionand had Elliott catheter. Patient was readmitted at [facility] and his diuretic regimen was adjusted. His labs in ER showed AMY with serum creatinine 4.9 mg/dL and hyperkalemia with serum potassium 5.3 mmol/L and anion gap of 18. Patient ABG showed pH 7.25 pCO2 58 oxygen saturation 57. He was placed on BiPAP briefly. Patient on arrival at [facility] had ABG which showed pH 7.19, pCO2 65.9 pO2 90.9%. Patient has a CKD dueto the longstanding DM and HTN baseline creatinine around 1.5 to 1.9 g/dL. Nephrology is consulted for AMY on CKD management. Interval history: Patient is awake however he is anxious to go home. He still has sleep apnea with hypercarbia. He has edema with elevated blood pressure. Patient was started on torsemide 40 mg daily with good diuresis more than 5 L urine output. Hyperkalemia is improving with diuresis. Renal functions continue to improve despite diuresis with creatinine down to 1.37 mg/dL. He has significant lower extremity edema in the setting of COPD on 6 L/min nasal cannula. Exam Physical Exam Vital Signs: Temp Pulse Resp BP Pulse Ox O2 Del Method O2 Flow Rate 36.6 C 70 20 169/80 H 95 Nasal Cannula 4 11/16/23 11:51 11/16/23 11:51 11/16/23 11:51 11/16/23 11:51 11/16/23 11:51 11/16/23 11:51 11/16/23 11:51 FiO2 40 11/16/23 00:14 Narrative: General: Morbidly obese, mild respiratory distress on high flow oxygen. HEENT: Mild pallor with no jaundice. Mucous membranes are moist. Neck: no JVD no bruit. Heart: S1-S2. RRR Respiratory: Decreased breath sounds bilaterally due to body habitus. No wheezing no crackles Abdomen: Soft, positive bowel sounds,no tenderness. Difficult to palpate organs. Neurology: Awake alert oriented x3. No focal deficits Extremity. No cyanosis. +2 edema of lower extremity Skin: No skin rash Indwelling Elliott catheter in place which is draining light yellow urine Objective Intake and Output I&O: Intake & Output 11/13/23 11/14/23 11/15/23 11/16/23 23:59 23:59 23:59 23:59 Intake Total 850 / 850 1100 / 1100 350 / 350 100 / 100 Output Total 2074 / 2074 3825 / 3825 5550 / 5550 1175 / 1175 Balance -1225 / -1225 -2725 / -2725 -5200 / -5200 -1075 / -1075 Weight 146.5 kg 142.4 kg 144.2 kg 132.9 kg Meds and Allergies Meds: Active Medications Acetaminophen (Acetaminophen 325 Mg Tablet) 650 mg PO Q6HR PRN PRN Reason: Pain Scale 1 - 3 or fever Stop: 11/10/24 19:44 Albuterol/Ipratropium (Ipratropium/Albuterol 0.5-3 Mg 3 Ml Ampul.Neb) 3 ml INHALATION QID.RESP [facility]IM[facility]E Stop: 11/12/24 19:59 Last Admin: 11/16/23 11:42 Dose: 3 ml Atorvastatin Calcium (Atorvastatin 40 Mg Tablet) 40 mg PO QHS [facility] Stop: 11/12/24 21:59 Last Admin: 11/15/23 21:12 Dose: 40 mg Budesonide (Budesonide 0.5 Mg/2 Ml Ampul.Neb) 0.5 mg INHALATION BID [facility] Stop: 11/12/24 20:59 Last Admin: 11/16/23 07:40 Dose: 0.5 mg Dextrose (Dextrose 50% In Water 25 Gm/50 Ml Syringe) 0 gm IV-PUSH PRN PRN PRN Reason: Hypoglycemia Stop: 11/10/24 20:56 Duloxetine HCl (Duloxetine 60 Mg Capsule.Dr) 60 mg PO DAILY [facility] Stop: 11/13/24 08:59 Last Admin: 11/16/23 09:08 Dose: 60 mg Gabapentin (Gabapentin 300 Mg Capsule) 300 mg PO QHS [facility] Stop: 11/14/24 21:59 Last Admin: 11/15/23 21:13 Dose: 300 mg Glucose (Dextrose 40% Gel 15 Gm Tube) 0 gm PO PRN PRN PRN Reason: Hypoglycemia Stop: 11/10/24 20:56 Last Admin: 11/12/23 17:38 Dose: 30 gm Guaifenesin (Guaifenesin 600 Mg Tab.Er.12h) 1,200 mg PO BID [facility] Stop: 11/12/24 20:59 Last Admin: 11/16/23 09:08 Dose: 1,200 mg Hydralazine HCl (Hydralazine 10 Mg Tablet) 10 mg PO BID [facility] Stop: 11/12/24 20:59 Last Admin: 11/16/23 09:08 Dose: 10 mg Fluconazole (Diflucan) 200 mg in 100 mls @ 100 mls/hr IV Q24H [facility] Last Admin: 11/15/23 18:00 Dose: 100 mls/hr Ceftriaxone Sodium (Rocephin) 1 gm in 50 mls @ 100 mls/hr IV Q24H [facility] Insulin Aspart (Insulin Aspart 300 Units/3 Ml Insuln.Pen) 0 units SUBCUT TID.WM.HS [facility]; Protocol Stop: 11/10/24 21:59 Last Admin: 11/16/23 09:08 Dose: Not Given Insulin Glargine (Insulin Glargine 300 Units/3 Ml Insuln.Pen) 35 units SUBCUT QHS [facility] Stop: 11/10/24 21:59 Last Admin: 11/15/23 21:14 Dose: Not Given Melatonin (Melatonin 5 Mg Tablet) 5 mg PO QHS PRN PRN Reason: Insomnia Stop: 11/10/24 19:44 Last Admin: 11/14/23 21:10 Dose: 5 mg Ondansetron HCl (Ondansetron 4 Mg/2 Ml Vial) 4 mg IV-PUSH Q8H PRN PRN Reason: Nausea And Vomiting Stop: 11/10/24 19:44 Last Admin: 11/14/23 11:50 Dose: 4 mg Pantoprazole Sodium (Pantoprazole 40 Mg Tablet.Dr) 40 mg PO DAILY [facility] Stop: 11/13/24 08:59 Last Admin: 11/16/23 09:07 Dose: 40 mg Sennosides (Sennosides 8.6 Mg Tablet) 1 tab PO BID [facility] Stop: 11/10/24 20:59 Last Admin: 11/16/23 09:07 Dose: 1 tab Tamsulosin HCl (Tamsulosin 0.4 Mg Cap.Er.24h) 0.4 mg PO DAILY [facility] Stop: 11/13/24 08:59 Last Admin: 11/16/23 09:08 Dose: 0.4 mg Torsemide (Torsemide 20 Mg Tablet) 40 mg PO DAILY@0800 [facility] Stop: 11/13/24 09:44 Last Admin: 11/16/23 09:08 Dose: 40 mg Allergies Penicillins Allergy (Verified 10/06/23 20:32) Rash Results - Nephrology Labs 11/16/23 04:51 11/16/23 04:51 Labs: 11/16/23 04:51 BUN 55 H Creatinine 1.37 H Radiology Impressions Impressions - last 24 hours: Any impression(s) listed above is documentation that was entered by the reading physician into a diagnostic report(s) for Nicole Jesus Lora. I have reviewed the report(s) and am incorporating any findings in the treatment plan of this patient where applicable. A&P - Nephrology Assessment/Plan (1) Acute kidney injury superimposed on CKD: Assessment/Problem Details: He has AMY possibly due to the ATN in setting of relative hypotension and prolonged hypovolemia. (2) CKD (chronic kidney disease) stage 3, GFR 30-59 ml/min: Assessment/Problem Details: He has a CKD due to longstanding DM and HTN with baseline serum creatinine 1.5 to 1.9 mg/dL. (3) Type 2 diabetes mellitus with diabetic chronic kidney disease: Assessment/Problem Details: He has an insulin-dependent type 2 diabetes mellitus and currently takes insulinglargine at home. (4) Hypertensive chronic kidney disease with stage 1 through stage 4 chronic kidney disease, or unspecified chronic kidney disease: Assessment/Problem Details: Blood pressure is relatively low. Patient was on torsemide at home. (5) (HFpEF) heart failure with preserved ejection fraction: Assessment/Problem Details: His echocardiogram showed preserved function. He appears to be compensated. Hewas taking diuretic at home. (6) Chronic respiratory failure with hypercapnia: Assessment/Problem Details: He has a chronic hypercapnic respiratory failure due to the obesity hypoventilation syndrome and COPD. He usually has compensatory metabolic alkalosis but in the setting of AMY he is not having any renal compensation. Plan * Patient has good diuresis with improvement of renal function. Continue torsemide 40 mg daily. Although he has more than 5 L urine output yesterday with -4 L, patient still has significant edema and elevated blood pressure. He will benefit from continuation of diuresis. * Potassium still in the high range of normal despite improvement of renal function seems to be related to acidosis with extracellular potassium translocation. Continue low potassium diet and torsemide. * Renal function is back to baseline. He may restart Jentadueto if needed for diabetes control * Patient is current on ceftriaxone. Urine culture from Elliott catheter showed Enterobacter and Kaelyn albicans. Patient has indwelling Elliott catheter and he is supposed to follow-up with urology for cystometry and cystoscopy as outpatient. * Check renal function daily monitor input output Patient has generalized weakness and is being evaluated for SNF placement. Documented By: Hood Zacarias MD 11/16/23 1207 Signed By: <Electronically signed by MD Hood Zacarias> 11/16/23 1216 [facility] Work Phone: [phone] 175-811403-27-2024 Progress note Author Hood Zacarias [facility] November 15, 2023 1:58pm Note Date/Time November 15, 2023 1:5 8pm [facility] [address] [place] [address] Nephrology Progress Note Signed Patient: Nicole Lora MR#: [id number] [birth year] : 1960 Acct:[id number] Age/Sex: 63 / M Adm Date: 4 Loc: Room: [address] [place] [address] Type: ADM IN Attending Dr: Manish Fu MD Copies to: ~ Date of Service: 11/15/2023 Subjective Subjective Narrative: This is a 63-year-old male with a medical history of CKD, DM, HTN, TC, COPD, CHF was transferred from [facility] for shortness of breath and hypercapnic respiratory failure. Patient was admitted at [facility] on September 2023 for COPD and CHF. During hospitalization he wasalso found to have AMY on CKD due to the cardiorenal syndrome. His renal function improved with diuresis. Patient was also found to have urine retentionand had Elliott catheter. Patient was readmitted at [facility] and his diuretic regimen was adjusted. His labs in ER showed AMY with serum creatinine 4.9 mg/dL and hyperkalemia with serum potassium 5.3 mmol/L and anion gap of 18. Patient ABG showed pH 7.25 pCO2 58 oxygen saturation 57. He was placed on BiPAP briefly. Patient on arrival at [facility] had ABG which showed pH 7.19, pCO2 65.9 pO2 90.9%. Patient has a CKD dueto the longstanding DM and HTN baseline creatinine around 1.5 to 1.9 g/dL. Nephrology is consulted for AMY on CKD management. Interval history: Patient is up in the be and looks much better. He is more alert today. Shortness of breath is improving however he still on 5 L/min oxygen via nasal cannula. Blood pressure still elevated with edema. Torsemide was restarted 40 mg daily with good urine output 3925 mL over the last 24 hours with -3125 mL. Renal function continues to improve with creatinine down to 1.59 mg/dL. Potassium however still on the high range of normal 5.3 mmol/L seems to be related to acidosis with movement of potassium outside the cells. He has significant lower extremity edema in the setting of COPD on 6 L/min nasal cannula. Exam Physical Exam Vital Signs: Temp Pulse Resp BP Pulse Ox O2 Del Method O2 Flow Rate 36.3 C L 75 19 164/67 H 95 Nasal Cannula 5 11/15/23 11:31 11/15/23 13:05 11/15/23 13:05 11/15/23 11:31 11/15/23 13:05 11/15/23 12:00 11/15/23 12:00 FiO2 40 11/15/23 13:05 Narrative: General: Morbidly obese, mild respiratory distress on high flow oxygen. HEENT: Mild pallor with no jaundice. Mucous membranes are moist. Neck: no JVD no bruit. Heart: S1-S2. RRR Respiratory: Decreased breath sounds bilaterally due to body habitus. No wheezing no crackles Abdomen: Soft, positive bowel sounds,no tenderness. Difficult to palpate organs. Neurology: Awake alert oriented x3. No focal deficits Extremity. No cyanosis. +2 edema of lower extremity Skin: No skin rash Elliott catheter in place which is draining light yellow urine Objective Intake and Output I&O: Intake & Output 11/12/23 11/13/23 11/14/23 11/15/23 23:59 23:59 23:59 23:59 Intake Total 990 / 990 850 / 850 1100 / 1100 Output Total 800 / 800 2075 / 2075 3825 / 3825 1700 / 1700 Balance 190 / 190 -1225 / -1225 -2725 / -2725 -1700 / -1700 Weight 142.6 kg 146.5 kg 142.4 kg 144.2 kg Meds and Allergies Meds: Active Medications Acetaminophen (Acetaminophen 325 Mg Tablet) 650 mg PO Q6HR PRN PRN Reason: Pain Scale 1 - 3 or fever Stop: 11/10/24 19:44 Albuterol/Ipratropium (Ipratropium/Albuterol 0.5-3 Mg 3 Ml Ampul.Neb) 3 ml INHALATION QID.RESP [facility] Stop: 11/12/24 19:59 Last Admin: 11/15/23 11:28 Dose: 3 ml Atorvastatin Calcium (Atorvastatin 40 Mg Tablet) 40 mg PO QHS [facility] Stop: 11/12/24 21:59 Last Admin: 11/14/23 21:10 Dose: 40 mg Budesonide (Budesonide 0.5 Mg/2 Ml Ampul.Neb) 0.5 mg INHALATION BID [facility] Stop: 11/12/24 20:59 Last Admin: 11/15/23 09:00 Dose: 0.5 mg Dextrose (Dextrose 50% In Water 25 Gm/50 Ml Syringe) 0 gm IV-PUSH PRN PRN PRN Reason: Hypoglycemia Stop: 11/10/24 20:56 Duloxetine HCl (Duloxetine 60 Mg Capsule.Dr) 60 mg PO DAILY [facility] Stop: 11/13/24 08:59 Last Admin: 11/15/23 08:14 Dose: 60 mg Gabapentin (Gabapentin 300 Mg Capsule) 300 mg PO QHS [facility] Stop: 11/14/24 21:59 Glucose (Dextrose 40% Gel 15 Gm Tube) 0 gm PO PRN PRN PRN Reason: Hypoglycemia Stop: 11/10/24 20:56 Last Admin: 11/12/23 17:38 Dose: 30 gm Guaifenesin (Guaifenesin 600 Mg Tab.Er.12h) 1,200 mg PO BID [facility] Stop: 11/12/24 20:59 Last Admin: 11/15/23 08:14 Dose: 1,200 mg Hydralazine HCl (Hydralazine 10 Mg Tablet) 10 mg PO BID [facility] Stop: 11/12/24 20:59 Last Admin: 11/15/23 08:14 Dose: 10 mg Fluconazole (Diflucan) 200 mg in 100 mls @ 100 mls/hr IV Q24H [facility] Insulin Aspart (Insulin Aspart 300 Units/3 Ml Insuln.Pen) 0 units SUBCUT TID.WM.HS [facility]; Protocol Stop: 11/10/24 21:59 Last Admin: 11/15/23 08:15 Dose: Not Given Insulin Glargine (Insulin Glargine 300 Units/3 Ml Insuln.Pen) 35 units SUBCUT QHS [facility] Stop: 11/10/24 21:59 Last Admin: 11/14/23 21:10 Dose: 35 units Melatonin (Melatonin 5 Mg Tablet) 5 mg PO QHS PRN PRN Reason: Insomnia Stop: 11/10/24 19:44 Last Admin: 11/14/23 21:10 Dose: 5 mg Ondansetron HCl (Ondansetron 4 Mg/2 Ml Vial) 4 mg IV-PUSH Q8H PRN PRN Reason: Nausea And Vomiting Stop: 11/10/24 19:44 Last Admin: 11/14/23 11:50 Dose: 4 mg Pantoprazole Sodium (Pantoprazole 40 Mg Tablet.Dr) 40 mg PO DAILY [facility] Stop: 11/13/24 08:59 Last Admin: 11/15/23 08:14 Dose: 40 mg Sennosides (Sennosides 8.6 Mg Tablet) 1 tab PO BID [facility] Stop: 11/10/24 20:59 Last Admin: 11/15/23 08:15 Dose: 1 tab Tamsulosin HCl (Tamsulosin 0.4 Mg Cap.Er.24h) 0.4 mg PO DAILY [facility] Stop: 11/13/24 08:59 Last Admin: 11/15/23 08:14 Dose: 0.4 mg Torsemide (Torsemide 20 Mg Tablet) 40 mg PO DAILY@0800 [facility] Stop: 11/13/24 09:44 Last Admin: 11/15/23 08:14 Dose: 40 mg Allergies Penicillins Allergy (Verified 10/06/23 20:32) Rash Results - Nephrology Labs 11/15/23 04:50 11/15/23 04:50 Labs: 11/15/23 04:50 BUN 63 H Creatinine 1.59 H Radiology Impressions Impressions - last 24 hours: Any impression(s) listed above is documentation that was entered by the reading physician into a diagnostic report(s) for Nicole Lora. I have reviewed the report(s) and am incorporating any findings in the treatment plan of this patient where applicable. A&P - Nephrology Assessment/Plan (1) Acute kidney injury superimposed on CKD: Assessment/Problem Details: He has AMY possibly due to the ATN in setting of relative hypotension and prolonged hypovolemia. (2) CKD (chronic kidney disease) stage 3, GFR 30-59 ml/min: Assessment/Problem Details: He has a CKD due to longstanding DM and HTN with baseline serum creatinine 1.5 to 1.9 mg/dL. (3) Type 2 diabetes mellitus with diabetic chronic kidney disease: Assessment/Problem Details: He has an insulin-dependent type 2 diabetes mellitus and currently takes insulinglargine at home. (4) Hypertensive chronic kidney disease with stage 1 through stage 4 chronic kidney disease, or unspecified chronic kidney disease: Assessment/Problem Details: Blood pressure is relatively low. Patient was on torsemide at home. (5) (HFpEF) heart failure with preserved ejection fraction: Assessment/Problem Details: His echocardiogram showed preserved function. He appears to be compensated. Hewas taking diuretic at home. (6) Chronic respiratory failure with hypercapnia: Assessment/Problem Details: He has a chronic hypercapnic respiratory failure due to the obesity hypoventilation syndrome and COPD. He usually has compensatory metabolic alkalosis but in the setting of AMY he is not having any renal compensation. Plan * Continue torsemide 40 mg daily. Patient has more than 3.5 L urine output. Renal function and urine output started to improve with better blood pressure. Blood pressure is elevated with edema in the setting of COPD with pulmonary hypertension that expected to improve with diuresis. * Potassium still in the high range of normal despite improvement of renal function seems to be related to acidosis with extracellular potassium translocation. Will start low potassium diet 2 g daily. Potassium should improve with addition of torsemide as well. * Renal function is back to baseline. He may restart gabapentin and Jentadueto if needed to control his neuropathy and diabetes. * Patient is current on ceftriaxone. Urine culture from Elliott catheter showed Enterobacter [place] complex and Kaelyn albicans. Patient has indwelling Elliott catheter and he is supposed to follow-up with urology for cystometric and cystoscopy as outpatient. * Check renal function daily monitor input output Documented By: Hood Zacarias MD 11/15/23 7240 Signed By: <Electronically signed by MD Hood Zacarias> 11/15/23 7558 [facility] Work Phone: [phone]) 872-300903-27-2024 Progress note Author Manish Fu [facility] November 15, 2023 1:27pm Note Date/Time November 15, 2023 12: 20pm [facility] [address] [place] [address] Hospitalist Progress Note Signed Patient: Nicole Lora MR#: [id number] [birth year] : 1960 Acct:[id number] Age/Sex: 63 / M Adm Date: 4 Loc: 4 Room: [address] [place] [address] Type: ADM IN Attending Dr: Manish Fu MD Copies to: ~ Date of Service: 11/15/2023 Subjective Subjective Narrative: Patient does remain confused. He does remain on 4 to 6 L nasal cannula oxygen. Bedside RN notes that he has more confusion today than previous days. Urinary catheter was clogged with sediment and after irrigation, 2 L of urine output wasimmediately drained. He was more confused today and thus ABG was obtained whichdid demonstrate more hypercapnia. BiPAP was placed. Exam Physical Exam Vital Signs: Temp Pulse Resp BP Pulse Ox O2 Del Method O2 Flow Rate 97.4 F L 75 21 164/67 H 95 Nasal Cannula 6 11/15/23 11:31 11/15/23 11:31 11/15/23 11:29 11/15/23 11:31 11/15/23 11:31 11/15/23 11:31 11/15/23 11:31 FiO2 40 11/14/23 22:00 Narrative: Narrative: General: Morbidly obese, middle-aged WM, resting in bed, awake, able to answer questions and follow commands HEENT: Mild pallor with no jaundice. Mucous membranes are moist. Neck: No JVD, no bruit. Heart: S1-S2. RRR Respiratory: Decreased breath sounds bilaterally due to body habitus. No wheezing, no crackles Abdomen: Soft, positive bowel sounds,no tenderness. Difficult to palpate organs. Neurology: Awake, alert and oriented x3. No focal deficits Extremity. No cyanosis. +2 edema of lower extremity Skin: No skin rash : Elliott catheter in place which is draining light yellow urine. Objective Lab Results 11/15/23 04:50 11/15/23 04:50 Microbiology Results Microbiology 11/11/23 22:20 Urine - Elliott Catheter Urine Culture - Final Enterobacter cloacae complex Kaelyn albicans Meds Allergies and Active Meds Allergies Penicillins Allergy (Verified 10/06/23 20:32) Rash Active Meds: Active Medications Generic Name Dose Route Start Last Admin Trade Name Freq PRN Reason Stop Dose Admin Acetaminophen 650 mg 11/11/23 19:45 Acetaminophen 325 Mg Tablet PO 11/10/24 19:44 Q6HR PRN Pain Scale 1 - 3 or fever Albuterol/Ipratropium 3 ml 11/13/23 20:00 11/15/23 11:28 Ipratropium/Albuterol 0.5-3 Mg 3 Ml Ampul.Neb INHALATION 11/12/24 19:59 3 ml QID.RESP JIMMIE Administration Atorvastatin Calcium 40 mg 11/13/23 22:00 11/14/23 21:10 Atorvastatin 40 Mg Tablet PO 11/12/24 21:59 40 mg QHS JIMMIE Administration Budesonide 0.5 mg 11/13/23 21:00 11/15/23 09:00 Budesonide 0.5 Mg/2 Ml Ampul.Neb INHALATION 11/12/24 20:59 0.5 mg BID JIMMIE Administration Dextrose 0 gm 11/11/23 20:57 Dextrose 50% In Water 25 Gm/50 Ml Syringe IV-PUSH 11/10/24 20:56 PRN PRN Hypoglycemia Duloxetine HCl 60 mg 11/14/23 09:00 11/15/23 08:14 Duloxetine 60 Mg Capsule.Dr PO 11/13/24 08:59 60 mg DAILY JIMMIE Administration Glucose 0 gm 11/11/23 20:57 11/12/23 17:38 Dextrose 40% Gel 15 Gm Tube PO 11/10/24 20:56 30 gm PRN PRN Administration Hypoglycemia Guaifenesin 1,200 mg 11/13/23 21:00 11/15/23 08:14 Guaifenesin 600 Mg Tab.Er.12h PO 11/12/24 20:59 1,200 mg BID JIMMIE Administration Hydralazine HCl 10 mg 11/13/23 21:00 11/15/23 08:14 Hydralazine 10 Mg Tablet PO 11/12/24 20:59 10 mg BID JIMMIE Administration Insulin Aspart 0 units 11/11/23 22:00 11/15/23 08:15 Insulin Aspart 300 Units/3 Ml Insuln.Pen SUBCUT 11/10/24 21:59 Not Given TID.WM.[facility] Protocol Insulin Glargine 35 units 11/11/23 22:00 11/14/23 21:10 Insulin Glargine 300 Units/3 Ml Insuln.Pen SUBCUT 11/10/24 21:59 35 units QHS [facility]IM[facility] Administration Melatonin 5 mg 11/11/23 19:45 11/14/23 21:10 Melatonin 5 Mg Tablet PO 11/10/24 19:44 5 mg QHS PRN Administration Insomnia Morphine Sulfate 2 mg 11/11/23 19:45 11/15/23 11:52 Morphine Sulfate 2 Mg/Ml Vial IV-PUSH 2 mg Q4H PRN Administration Pain Scale 8 - 10 Ondansetron HCl 4 mg 11/11/23 19:45 11/14/23 11:50 Ondansetron 4 Mg/2 Ml Vial IV-PUSH 11/10/24 19:44 4 mg Q8H PRN Administration Nausea And Vomiting Pantoprazole Sodium 40 mg 11/14/23 09:00 11/15/23 08:14 Pantoprazole 40 Mg Tablet.Dr PO 11/13/24 08:59 40 mg DAILY JIMMIE Administration Sennosides 1 tab 11/11/23 21:00 11/15/23 08:15 Sennosides 8.6 Mg Tablet PO 11/10/24 20:59 1 tab BID [facility]E Administration Tamsulosin HCl 0.4 mg 11/14/23 09:00 11/15/23 08:14 Tamsulosin 0.4 Mg Cap.Er.24h PO 11/13/24 08:59 0.4 mg DAILY [facility]IM[facility]E Administration Torsemide 40 mg 11/14/23 09:45 11/15/23 08:14 Torsemide 20 Mg Tablet PO 11/13/24 09:44 40 mg DAILY@0800 [facility] Administration A&P - Hospitalist Assessment/Plan (1) Acute kidney injury superimposed on CKD: (2) Urine retention: (3) Obesity hypoventilation syndrome: (4) Hypertension: (5) Edema: (6) COPD (chronic obstructive pulmonary disease): (7) Lymphedema: (8) CHF (congestive heart failure): (9) Hyperkalemia: (10) Diabetes mellitus, type 2: (11) Diastolic heart failure: Plan AMY on CKD Stage III Hyperkalemia Baseline creatinine is 1.9, presented with creatinine of 4.63, creatinine has trended back down to close to his baseline. Continues to downtrend. Renal ultrasound did not demonstrate any acute findings. Nephrology following. In the setting of UTI, intermittent Elliott obstruction today due to sediment buildup. ?AMY is likely secondary to volume depletion, post-obstructive etiology -Irrigate Elliott catheter daily -Restarting torsemide today -Will restart low-dose gabapentin nightly for neuropathy pain -Continue to hold empagliflozin and Jentadueto for now Acute complicated UTI from Chronic Indwelling Elliott Catheter Patient has a Elliott catheter in, getting IV ceftriaxone 2 g every 24 Urine culture is positive for 30,000 CFU per mL of Enterobacter and 75,000 CFU per mL of Kaelyn -Will continue IV ceftriaxone for now, will continue total 7-day course of antibiotic therapy, due to complicated UTI in male with catheter Asthma/COPD Acute on Chronic Hypercapnic Respiratory Failure CO2 Narcosis ABG did demonstrate worsening hypercapnia. We will place on BiPAP is much as patient can tolerate. We will continue to optimize patient's COPD regimen. -Continue DuoNebs 4 times daily -BiPAP nightly and with naps, if patient will tolerate Candiduria Suspect this may be contributing to his mental status changes as well Will -Initiate IV fluconazole daily Urine Retention Uremic encephalopathy Acute metabolic encephalopathy Has had a Elliott catheter placed early this year, set up with urology follow-up on November 19. Daughter states Elliott catheter has been in for roughly 2 months now -Likely will require outpatient management of Elliott catheter, urology will follow-up as outpt -Treat UTI and candiduria, and optimize COPD regimen as well to improve mental status HTN Monitor BPs closely. Have been uncontrolled somewhat while inpatient. -Re-introduce antihypertensives slowly given his acute on chronic renal dysfunction Hyperkalemia -Diuretics restarted today DM type II POC glucoses are controlled at this time. Hold all oral antihyperglycemic's including metformin ? 35 units glargine nightly ? Discontinued the mealtime insulin given patient's episode of hypoglycemia earlier this hospitalization in the afternoon of 11/10/23 ? Glucose checks ACHS Chronic Heart Failure with Preserved EF Some concern for mild volume overload, but patient does not appear grossly edematous. ? Echocardiogram performed on October 07 showed EF of 65 to 70% ? No indication to repeat echocardiogram this admission ? Restarted torsemide Left Lateral Foot Ulcer -Continue wound care recommendations CODE STATUS: Full code Documented By: Manish Fu MD [id number] Signed By: <Electronically signed by Manish Fu MD> 11/15/23 1327 [facility] Work Phone: 1(773) 292-908703-26-2024 Progress note Author Manish Fu [facility] November 14, 2023 8:19pm Note Date/Time November 14, 2023 8:0 8pm [facility] [address] [place], [place] [id number] Hospitalist Progress Note Signed Patient: Nicole Lora MR#: [id number] [birth year] : 1960 Acct:[id number] Age/Sex: 63 / M Adm Date: 4 Loc: Room: [address] [place] [address] Type: ADM IN Attending Dr: Manish Fu MD Copies to: ~ Date of Service: 11/14/2023 Subjective Subjective Narrative: Patient seen and assessed at bedside. No acute events noted overnight. Patientrenal function does improve. Exam Physical Exam Vital Signs: Temp Pulse Resp BP Pulse Ox O2 Del Method O2 Flow Rate 97.4 F L 77 20 148/72 H 94 L Nasal Cannula 6 11/14/23 15:47 11/14/23 20:01 11/14/23 20:01 11/14/23 15:47 11/14/23 15:47 11/14/23 16:00 11/14/23 16:00 FiO2 40 11/13/23 22:33 Narrative: Narrative: General: Morbidly obese, middle-aged WM, resting in bed, awake, able to answer questions and follow commands HEENT: Mild pallor with no jaundice. Mucous membranes are moist. Neck: No JVD, no bruit. Heart: S1-S2. RRR Respiratory: Decreased breath sounds bilaterally due to body habitus. No wheezing, no crackles Abdomen: Soft, positive bowel sounds,no tenderness. Difficult to palpate organs. Neurology: Awake, alert and oriented x3. No focal deficits Extremity. No cyanosis. +2 edema of lower extremity Skin: No skin rash : Elliott catheter in place which is draining light yellow urine Objective Lab Results 11/14/23 04:24 11/14/23 04:24 Microbiology Results Microbiology 11/11/23 22:20 Urine - Elliott Catheter Urine Culture - Final Enterobacter cloacae complex Kaelyn albicans Meds Allergies and Active Meds Allergies Penicillins Allergy (Verified 10/06/23 20:32) Rash Active Meds: Active Medications Generic Name Dose Route Start Last Admin Trade Name Pitoq PRN Reason Stop Dose Admin Acetaminophen 650 mg 11/11/23 19:45 Acetaminophen 325 Mg Tablet PO 11/10/24 19:44 Q6HR PRN Pain Scale 1 - 3 or fever Albuterol/Ipratropium 3 ml 11/13/23 20:00 11/14/23 20:00 Ipratropium/Albuterol 0.5-3 Mg 3 Ml Ampul.Neb INHALATION 11/12/24 19:59 3 ml QID.RESP JIMMIE Administration Atorvastatin Calcium 40 mg 11/13/23 22:00 11/13/23 21:04 Atorvastatin 40 Mg Tablet PO 11/12/24 21:59 40 mg QHS JIMMIE Administration Budesonide 0.5 mg 11/13/23 21:00 11/14/23 20:00 Budesonide 0.5 Mg/2 Ml Ampul.Neb INHALATION 11/12/24 20:59 0.5 mg BID JIMMIE Administration Dextrose 0 gm 11/11/23 20:57 Dextrose 50% In Water 25 Gm/50 Ml Syringe IV-PUSH 11/10/24 20:56 PRN PRN Hypoglycemia Duloxetine HCl 60 mg 11/14/23 09:00 11/14/23 08:10 Duloxetine 60 Mg Capsule.Dr PO 11/13/24 08:59 60 mg DAILY JIMMIE Administration Glucose 0 gm 11/11/23 20:57 11/12/23 17:38 Dextrose 40% Gel 15 Gm Tube PO 11/10/24 20:56 30 gm PRN PRN Administration Hypoglycemia Guaifenesin 1,200 mg 11/13/23 21:00 11/14/23 08:10 Guaifenesin 600 Mg Tab.Er.12h PO 11/12/24 20:59 1,200 mg BID JIMMIE Administration Hydralazine HCl 10 mg 11/13/23 21:00 11/14/23 08:10 Hydralazine 10 Mg Tablet PO 11/12/24 20:59 10 mg BID JIMMIE Administration Ceftriaxone Sodium 2 gm in 50 mls @ 100 mls/hr 11/12/23 08:00 11/14/23 08:11 Rocephin IV 11/15/23 08:29 100 mls/hr Q24H JIMMIE Administration Insulin Aspart 0 units 11/11/23 22:00 11/14/23 17:28 Insulin Aspart 300 Units/3 Ml Insuln.Pen SUBCUT 11/10/24 21:59 Not Given TID.WM.HS [facility] Protocol Insulin Glargine 35 units 11/11/23 22:00 11/13/23 21:13 Insulin Glargine 300 Units/3 Ml Insuln.Pen SUBCUT 11/10/24 21:59 35 units QHS JIMMIE Administration Melatonin 5 mg 11/11/23 19:45 11/13/23 21:04 Melatonin 5 Mg Tablet PO 11/10/24 19:44 5 mg QHS PRN Administration Insomnia Morphine Sulfate 2 mg 11/11/23 19:45 11/14/23 11:36 Morphine Sulfate 2 Mg/Ml Vial IV-PUSH 2 mg Q4H PRN Administration Pain Scale 8 - 10 Ondansetron HCl 4 mg 11/11/23 19:45 11/14/23 11:50 Ondansetron 4 Mg/2 Ml Vial IV-PUSH 11/10/24 19:44 4 mg Q8H PRN Administration Nausea And Vomiting Pantoprazole Sodium 40 mg 11/14/23 09:00 11/14/23 08:10 Pantoprazole 40 Mg Tablet.Dr PO 11/13/24 08:59 40 mg DAILY JIMMIE Administration Sennosides 1 tab 11/11/23 21:00 11/14/23 08:10 Sennosides 8.6 Mg Tablet PO 11/10/24 20:59 1 tab BID JIMMIE Administration Tamsulosin HCl 0.4 mg 11/14/23 09:00 11/14/23 08:10 Tamsulosin 0.4 Mg Cap.Er.24h PO 11/13/24 08:59 0.4 mg DAILY JIMMIE Administration Torsemide 40 mg 11/14/23 09:45 11/14/23 10:09 Torsemide 20 Mg Tablet PO 11/13/24 09:44 40 mg DAILY@0800 JIMMIE Administration A&P - Hospitalist Assessment/Plan (1) Acute kidney injury superimposed on CKD: (2) Urine retention: (3) Obesity hypoventilation syndrome: (4) Hypertension: (5) Edema: (6) COPD (chronic obstructive pulmonary disease): (7) Lymphedema: (8) CHF (congestive heart failure): (9) Hyperkalemia: (10) Diabetes mellitus, type 2: (11) Diastolic heart failure: Plan AMY on CKD Stage III Baseline creatinine is 1.9, presented with creatinine of 4.63, creatinine has trended down to 3.26. Continues to downtrend. Renal ultrasound did not demonstrate any acute findings. Nephrology following. ?AMY is likely secondary to volume depletion, postobstructive etiology -Holding torsemide, gabapentin, empagliflozin, metformin/linagliptin for now Acute complicated UTI from Chronic Indwelling Elliott Catheter Patient has a Elliott catheter in, getting IV ceftriaxone 2 g every 24 Urine culture is positive for 30,000 CFU per mL of Enterobacter and 75,000 CFU per mL of Kaelyn -Will continue IV ceftriaxone for now, will continue total 7-day course of antibiotic therapy Asthma/COPD Acute on chronic hypercapnic respiratory failure Not in exacerbation, will change DuoNebs to scheduled and start budesonide inhaled twice daily given his hypercapnia. I do think we need to optimize his COPD regimen -Continue DuoNebs 4 times daily -BiPAP nightly and with naps, if patient will tolerate Urine Retention Has had a Elliott catheter placed, set up with urology follow-up on November 19. Daughter states Elliott catheter has been in for roughly 2 months now -Likely will require outpatient management of Elliott catheter, urology will follow-up as outpt HTN Monitor BPs closely. Have been uncontrolled somewhat while inpatient. -Reintroduce antihypertensives slowly given his acute on chronic renal dysfunction Hyperkalemia Does persist. In the setting of AMY likely from post-obstructive etiology. Continue Lokelma DM type II Hold all oral antihyperglycemic's including metformin ? 35 units glargine nightly ? Discontinued the mealtime insulin given patient's episode of hypoglycemia earlier this hospitalization in the afternoon of 11/10/23 ? Glucose checks ACHS Chronic Heart Failure with Preserved EF Some concern for mild volume overload, but patient does not appear grossly edematous. ? Echocardiogram performed on October 07 showed EF of 65 to 70% ? No indication to repeat echocardiogram this admission ? Holding torsemide at this time Left Lateral Foot Ulcer -Continue wound care recommendations CODE STATUS: Full code Documented By: Manish Fu MD 2004 Signed By: <Electronically signed by Manish Fu MD> 11/14/232018 [facility] Work Phone: [phone] 400-678003-26-2024 Progress note Author Hood Zacarias [facility] November 14, 2023 1:34pm Note Date/Time November 14, 2023 1:3 4pm [facility] [address] [place], [place] [id number] Nephrology Progress Note Signed Patient: Nicole Lora MR#: [id number] 29 : 1960 Acct:[id number] Age/Sex: 63 / M Adm Date: 4 Loc: Room: [address] [place] [address] Type: ADM IN Attending Dr: Manish Fu MD Copies to: ~ Date of Service: 11/14/2023 Subjective Subjective Narrative: This is a 63-year-old male with a medical history of CKD, DM, HTN, TC, COPD, CHF was transferred from [facility] for shortness of breath and hypercapnic respiratory failure. Patient was admitted at [facility] on September 2023 for COPD and CHF. During hospitalization he wasalso found to have AMY on CKD due to the cardiorenal syndrome. His renal function improved with diuresis. Patient was also found to have urine retentionand had Elliott catheter. Patient was readmitted at [facility] and his diuretic regimen was adjusted. His labs in ER showed AMY with serum creatinine 4.9 mg/dL and hyperkalemia with serum potassium 5.3 mmol/L and anion gap of 18. Patient ABG showed pH 7.25 pCO2 58 oxygen saturation 57. He was placed on BiPAP briefly. Patient on arrival at [facility] had ABG which showed pH 7.19, pCO2 65.9 pO2 90.9%. Patient has a CKD dueto the longstanding DM and HTN baseline creatinine around 1.5 to 1.9 g/dL. Nephrology is consulted for AMY on CKD management. Interval history: Patient is up in the chair, he looks much better. He is more alert today. Blood pressure has improved up to 150s systolic. He still of torsemide. Renal function did improve with creatinine down to 1.9 mg/dL close to the baseline however potassium still on the high range of normal 5.3 mmol/L of torsemide. Hehas significant lower extremity edema in the setting of COPD on 6 L/min nasal cannula. Exam Physical Exam Vital Signs: Temp Pulse Resp BP Pulse Ox O2 Del Method O2 Flow Rate 36.4 C L 72 20 158/74 H 93 L Nasal Cannula 6 11/14/23 12:00 11/14/23 12:00 11/14/23 12:00 11/14/23 12:00 11/14/23 12:00 11/14/23 12:00 11/14/23 12:00 FiO2 40 11/13/23 22:33 Narrative: General: Morbidly obese, mild respiratory distress on high flow oxygen. HEENT: Mild pallor with no jaundice. Mucous membranes are moist. Neck: no JVD no bruit. Heart: S1-S2. RRR Respiratory: Decreased breath sounds bilaterally due to body habitus. No wheezing no crackles Abdomen: Soft, positive bowel sounds,no tenderness. Difficult to palpate organs. Neurology: Awake alert oriented x3. No focal deficits Extremity. No cyanosis. +2 edema of lower extremity Skin: No skin rash Elliott catheter in place which is draining light yellow urine Objective Intake and Output I&O: Intake & Output 11/11/23 11/12/23 11/13/23 11/14/23 23:59 23:59 23:59 23:59 Intake Total 0 / 0 990 / 990 850 / 850 250 / 250 Output Total 100 / 100 800 / 800 2075 / 2075 1600 / 1600 Balance -100 / -100 190 / 190 -1225 / -1225 -1350 / -1350 Weight 143.4 kg 142.6 kg 146.5 kg 142.4 kg Meds and Allergies Meds: Active Medications Acetaminophen (Acetaminophen 325 Mg Tablet) 650 mg PO Q6HR PRN PRN Reason: Pain Scale 1 - 3 or fever Stop: 11/10/24 19:44 Albuterol/Ipratropium (Ipratropium/Albuterol 0.5-3 Mg 3 Ml Ampul.Neb) 3 ml INHALATION QID.RESP JIMMIE Stop: 11/12/24 19:59 Last Admin: 11/14/23 11:46 Dose: 3 ml Atorvastatin Calcium (Atorvastatin 40 Mg Tablet) 40 mg PO QHS JIMMIE Stop: 11/12/24 21:59 Last Admin: 11/13/23 21:04 Dose: 40 mg Budesonide (Budesonide 0.5 Mg/2 Ml Ampul.Neb) 0.5 mg INHALATION BID [facility] Stop: 11/12/24 20:59 Last Admin: 11/14/23 07:35 Dose: 0.5 mg Dextrose (Dextrose 50% In Water 25 Gm/50 Ml Syringe) 0 gm IV-PUSH PRN PRN PRN Reason: Hypoglycemia Stop: 11/10/24 20:56 Duloxetine HCl (Duloxetine 60 Mg Capsule.Dr) 60 mg PO DAILY [facility] Stop: 11/13/24 08:59 Last Admin: 11/14/23 08:10 Dose: 60 mg Glucose (Dextrose 40% Gel 15 Gm Tube) 0 gm PO PRN PRN PRN Reason: Hypoglycemia Stop: 11/10/24 20:56 Last Admin: 11/12/23 17:38 Dose: 30 gm Guaifenesin (Guaifenesin 600 Mg Tab.Er.12h) 1,200 mg PO BID [facility] Stop: 11/12/24 20:59 Last Admin: 11/14/23 08:10 Dose: 1,200 mg Hydralazine HCl (Hydralazine 10 Mg Tablet) 10 mg PO BID [facility] Stop: 11/12/24 20:59 Last Admin: 11/14/23 08:10 Dose: 10 mg Ceftriaxone Sodium (Rocephin) 2 gm in 50 mls @ 100 mls/hr IV Q24H [facility] Stop: 11/15/23 08:29 Last Admin: 11/14/23 08:11 Dose: 100 mls/hr Insulin Aspart (Insulin Aspart 300 Units/3 Ml Insuln.Pen) 0 units SUBCUT TID.WM.[facility]; Protocol Stop: 11/10/24 21:59 Last Admin: 11/14/23 12:41 Dose: Not Given Insulin Glargine (Insulin Glargine 300 Units/3 Ml Insuln.Pen) 35 units SUBCUT QHS [facility] Stop: 11/10/24 21:59 Last Admin: 11/13/23 21:13 Dose: 35 units Melatonin (Melatonin 5 Mg Tablet) 5 mg PO QHS PRN PRN Reason: Insomnia Stop: 11/10/24 19:44 Last Admin: 11/13/23 21:04 Dose: 5 mg Morphine Sulfate (Morphine Sulfate 2 Mg/Ml Vial) 2 mg IV-PUSH Q4H PRN PRN Reason: Pain Scale 8 - 10 Last Admin: 11/14/23 11:36 Dose: 2 mg Ondansetron HCl (Ondansetron 4 Mg/2 Ml Vial) 4 mg IV-PUSH Q8H PRN PRN Reason: Nausea And Vomiting Stop: 11/10/24 19:44 Last Admin: 11/14/23 11:50 Dose: 4 mg Pantoprazole Sodium (Pantoprazole 40 Mg Tablet.Dr) 40 mg PO DAILY JIMMIE Stop: 11/13/24 08:59 Last Admin: 11/14/23 08:10 Dose: 40 mg Sennosides (Sennosides 8.6 Mg Tablet) 1 tab PO BID JIMMIE Stop: 11/10/24 20:59 Last Admin: 11/14/23 08:10 Dose: 1 tab Tamsulosin HCl (Tamsulosin 0.4 Mg Cap.Er.24h) 0.4 mg PO DAILY JIMMIE Stop: 11/13/24 08:59 Last Admin: 11/14/23 08:10 Dose: 0.4 mg Torsemide (Torsemide 20 Mg Tablet) 40 mg PO DAILY@0800 JIMMIE Stop: 11/13/24 09:44 Last Admin: 11/14/23 10:09 Dose: 40 mg Allergies Penicillins Allergy (Verified 10/06/23 20:32) Rash Results - Nephrology Labs 11/14/23 04:24 11/14/23 04:24 Labs: 11/14/23 04:24 BUN 70 H Creatinine 1.94 H D Albumin 3.2 L Radiology Impressions Impressions - last 24 hours: Any impression(s) listed above is documentation that was entered by the reading physician into a diagnostic report(s) for Nicole Lora. I have reviewed the report(s) and am incorporating any findings in the treatment plan of this patient where applicable. A&P - Nephrology Assessment/Plan (1) Acute kidney injury superimposed on CKD: Assessment/Problem Details: He has AMY possibly due to the ATN in setting of relative hypotension and prolonged hypovolemia. (2) CKD (chronic kidney disease) stage 3, GFR 30-59 ml/min: Assessment/Problem Details: He has a CKD due to longstanding DM and HTN with baseline serum creatinine 1.5 to 1.9 mg/dL. (3) Type 2 diabetes mellitus with diabetic chronic kidney disease: Assessment/Problem Details: He has an insulin-dependent type 2 diabetes mellitus and currently takes insulinglargine at home. (4) Hypertensive chronic kidney disease with stage 1 through stage 4 chronic kidney disease, or unspecified chronic kidney disease: Assessment/Problem Details: Blood pressure is relatively low. Patient was on torsemide at home. (5) (HFpEF) heart failure with preserved ejection fraction: Assessment/Problem Details: His echocardiogram showed preserved function. He appears to be compensated. Hewas taking diuretic at home. (6) Chronic respiratory failure with hypercapnia: Assessment/Problem Details: He has a chronic hypercapnic respiratory failure due to the obesity hypoventilation syndrome and COPD. He usually has compensatory metabolic alkalosis but in the setting of AMY he is not having any renal compensation. Plan * Renal function and urine output started to improve with better blood pressure. Pressure is elevated with edema and patient has respiratory distress. He also has elevated potassium 5.3 mEq/L. Will restart torsemide 40 mg daily first dose today and monitor renal function and blood pressure. Patient is not a candidate for spironolactone at this point since potassium is elevated however could be considered if potassium drops below 4 mEq/L. Torsemide may need to be increase to 40 mg twice a day if tolerated. * Renal function is back to baseline. He may restart gabapentin and Jentadueto if needed to control his neuropathy and diabetes. * Patient is current on ceftriaxone. Urine culture from Elliott catheter showed Enterobacter [place] complex and Kaelyn albicans. * Continue Elliott care for now. Will give a trial of void with bladder scan once renal function stabilizes diuretics. * Check renal function daily monitor input output Documented By: Hood Zacarias MD 11/14/23 0745 Signed By: <Electronically signed by MD Hood Zacarias> 11/14/23 1429 [facility] Work Phone: [phone]) 507-901203-25-2024 Progress note Author Manish Fu [facility] November 13, 2023 7:32pm Note Date/Time November 13, 2023 5:3 5pm [facility] [address] [place] [address] Hospitalist Progress Note Signed with Jazzy Patient: Nicole Lora MR#: [id number] [birth year] : 1960 Acct:[id number] Age/Sex: 63 / M Adm Date: 4 Loc: 4P Room: 3Z5161-4 Type: ADM IN Attending Dr: Manish Fu MD Copies to: ~ ADDENDUM1 Correction: Patient's niece and sister at bedside and updated on plan of care along with patient. Addendum Documented By: Manish Fu MD 11/13/231931 Addendum Signed By: <Electronically signed by Manish Fu MD> 11/13/231931 Date of Service: 11/13/2023 Subjective Subjective Narrative: Patient was more sleepy overnight. Patient did have more confusion this morningand ABG did note hypercapnea. Bedside RN notes that he was confused today and had difficulty stating his middle name. Patient was assessed and his niece and sister were at bedside. They did express concern about his multiple hospitalizations in the last few months. They state he has been in the hospital6 separate times, and most of the time this has been related to him having urinary infections. He does have a lateral distal left foot ulcer as well. He denies significant cough, and has not been able to exert himself due to confusion and disorientation. He was occasionally tearful during this assessment, related to issues surrounding his deteriorating health. Exam Physical Exam Vital Signs: Temp Pulse Resp BP Pulse Ox O2 Del Method O2 Flow Rate 97.5 F L 67 16 150/70 H 91 L Nasal Cannula 6 11/13/23 08:00 11/13/23 08:00 11/13/23 10:00 11/13/23 08:00 11/13/23 10:00 11/13/23 10:00 11/13/23 10:00 Narrative: Narrative: General: Morbidly obese, middle-aged WM, resting in bed, awake, able to answer questions and follow commands HEENT: Mild pallor with no jaundice. Mucous membranes are moist. Neck: No JVD, no bruit. Heart: S1-S2. RRR Respiratory: Decreased breath sounds bilaterally due to body habitus. No wheezing, no crackles Abdomen: Soft, positive bowel sounds,no tenderness. Difficult to palpate organs. Neurology: Awake, alert and oriented x3. No focal deficits Extremity. No cyanosis. +2 edema of lower extremity Skin: No skin rash : Elliott catheter in place which is draining light yellow urine Objective Lab Results 11/13/23 09:11 11/13/23 09:11 Microbiology Results Microbiology 11/11/23 22:20 Urine - Elliott Catheter Urine Culture - Preliminary Enterobacter cloacae complex Kaelyn albicans ABG Interpretation ABG results: 11/13/23 08:18 ABG pH 7.24 L ABG pCO2 64.8 H* ABG pO2 34.3 L* ABG HCO3 27.1 ABG Total CO2 29.1 H ABG O2 Saturation 66.0 L ABG O2 Content 5.4 L ABG Base Excess -1.5 Meds Allergies and Active Meds Allergies Penicillins Allergy (Verified 10/06/23 20:32) Rash Active Meds: Active Medications Generic Name Dose Route Start Last Admin Trade Name Freq PRN Reason Stop Dose Admin Acetaminophen 650 mg 11/11/23 19:45 Acetaminophen 325 Mg Tablet PO 11/10/24 19:44 Q6HR PRN Pain Scale 1 - 3 or fever Albuterol/Ipratropium 3 ml 11/11/23 20:55 Ipratropium/Albuterol 0.5-3 Mg 3 Ml Ampul.Neb INHALATION 11/11/24 07:59 QID.RESP PRN wheezing Dextrose 0 gm 11/11/23 20:57 Dextrose 50% In Water 25 Gm/50 Ml Syringe IV-PUSH 11/10/24 20:56 PRN PRN Hypoglycemia Glucose 0 gm 11/11/23 20:57 11/12/23 17:38 Dextrose 40% Gel 15 Gm Tube PO 11/10/24 20:56 30 gm PRN PRN Administration Hypoglycemia Ceftriaxone Sodium 2 gm in 50 mls @ 100 mls/hr 11/12/23 08:00 11/13/23 09:17 Rocephin IV 11/15/23 08:29 100 mls/hr Q24H JIMMIE Administration Insulin Aspart 0 units 11/11/23 22:00 11/13/23 14:08 Insulin Aspart 300 Units/3 Ml Insuln.Pen SUBCUT 11/10/24 21:59 Not Given TID.WM.[facility] Protocol Insulin Glargine 35 units 11/11/23 22:00 11/12/23 21:43 Insulin Glargine 300 Units/3 Ml Insuln.Pen SUBCUT 11/10/24 21:59 35 units QHS JIMMIE Administration Melatonin 5 mg 11/11/23 19:45 11/12/23 21:29 Melatonin 5 Mg Tablet PO 11/10/24 19:44 5 mg QHS PRN Administration Insomnia Morphine Sulfate 2 mg 11/11/23 19:45 11/12/23 21:38 Morphine Sulfate 2 Mg/Ml Vial IV-PUSH 2 mg Q4H PRN Administration Pain Scale 8 - 10 Ondansetron HCl 4 mg 11/11/23 19:45 Ondansetron 4 Mg/2 Ml Vial IV-PUSH 11/10/24 19:44 Q8H PRN Nausea And Vomiting Sennosides 1 tab 11/11/23 21:00 11/13/23 09:00 Sennosides 8.6 Mg Tablet PO 11/10/24 20:59 Not Given BID JIMMIE A&P - Hospitalist Assessment/Plan (1) Acute kidney injury superimposed on CKD: (2) Urine retention: (3) Obesity hypoventilation syndrome: (4) Hypertension: (5) Edema: (6) COPD (chronic obstructive pulmonary disease): (7) Lymphedema: (8) CHF (congestive heart failure): (9) Hyperkalemia: (10) Diabetes mellitus, type 2: (11) Diastolic heart failure: Plan AMY on CKD Stage III Baseline creatinine is 1.9, presented with creatinine of 4.63, creatinine has trended down to 3.26. Suspect post-obstructive etiology. Renal ultrasound did not demonstrate any acute findings. Nephrology following. ? AMY is likely secondary to volume depletion -Holding torsemide, gabapentin, empagliflozin, metformin/linagliptin for now Acute complicated UTI from Chronic Indwelling Elliott Catheter Patient has a Elliott catheter in, getting IV ceftriaxone 2 g every 24 Urine culture is positive for 30,000 CFU per mL of Enterobacter and 75,000 CFU per mL of Kaelyn -Will continue IV ceftriaxone for now, will continue total 7-day course of antibiotic therapy Asthma/COPD Acute on chronic hypercapnic respiratory failure Not in exacerbation, will change DuoNebs to scheduled and start budesonide inhaled twice daily given his hypercapnia. I do think we need to optimize his COPD regimen -Continue DuoNebs 4 times daily -BiPAP nightly and with naps, if patient will tolerate Urine Retention Has had a Elliott catheter placed, set up with urology follow-up on November 19. Daughter states Elliott catheter has been in for roughly 2 months now -Likely will require outpatient management of Elliott catheter HTN Monitor BPs closely. Have been uncontrolled somewhat while inpatient. -Reintroduce antihypertensives slowly given his acute on chronic renal dysfunction Hyperkalemia Does persist. In the setting of AMY likely from post-obstructive etiology. DM type II Hold all oral antihyperglycemic's including metformin ? Initiate insulin, weight-based ? 35 units glargine nightly ? Discontinued the mealtime insulin given patient's episode of hypoglycemia earlier this hospitalization in the afternoon of 11/10/23 ? Glucose checks ACHS Chronic Heart Failure with Preserved EF Some concern for mild volume overload, but patient does not appear grossly edematous. ? Echocardiogram performed on October 07 showed EF of 65 to 70% ? No indication to repeat echocardiogram this admission ? Holding torsemide at this time CODE STATUS: Full code Plan of care discussed with patient and daughter Dvain who is at bedside. Documented By: Manish Fu MD 4 1722 Signed By: <Electronically signed by Manish Fu MD> 11/13/23 1906 [facility] Work Phone: 1(327) 537-300303-25-2024 Progress note Author Hood [facility] November 13, 2023 2:24pm Note Date/Time November 13, 2023 2:2 4pm [facility] [address] [place] [address] Nephrology Progress Note Signed Patient: Nicole Lora MR#: [id number] [birth year] : 1960 Acct:[id number] Age/Sex: 63 / M Adm Date: 4 Loc: 4 Room: 6X6954-7 Type: ADM IN Attending Dr: Manish Fu MD Copies to: ~ Date of Service: 11/13/2023 Subjective Subjective Narrative: This is a 63-year-old male with a medical history of CKD, DM, HTN, TC, COPD, CHF was transferred from [facility] for shortness of breath and hypercapnic respiratory failure. Patient was admitted at [facility] on September 2023 for COPD and CHF. During hospitalization he wasalso found to have AMY on CKD due to the cardiorenal syndrome. His renal function improved with diuresis. Patient was also found to have urine retentionand had Elliott catheter. Patient was readmitted at [facility] and his diuretic regimen was adjusted. His labs in ER showed AMY with serum creatinine 4.9 mg/dL and hyperkalemia with serum potassium 5.3 mmol/L and anion gap of 18. Patient ABG showed pH 7.25 pCO2 58 oxygen saturation 57. He was placed on BiPAP briefly. Patient on arrival at [facility] had ABG which showed pH 7.19, pCO2 65.9 pO2 90.9%. Patient has a CKD dueto the longstanding DM and HTN baseline creatinine around 1.5 to 1.9 g/dL. Nephrology is consulted for AMY on CKD management. Interval history: Patient is being seen and examined in his room. He is awake however is mildly confused. He still has respiratory acidosis with CO2 retention on high flow oxygen. Torsemide, gabapentin and Jentadueto are still on hold. Creatinine slightly down to 3.26 mg/dL however still higher than baseline. Potassium is slowly improving down to 5.3 mEq/L. Patient has adequate blood pressure 150/70. He still on 6 L/min nasal cannula with pulse ox 91%. Exam Physical Exam Vital Signs: Temp Pulse Resp BP Pulse Ox O2 Del Method O2 Flow Rate 36.4 C L 67 16 150/70 H 91 L Nasal Cannula 6 11/13/23 08:00 11/13/23 08:00 11/13/23 10:00 11/13/23 08:00 11/13/23 10:00 11/13/23 10:00 11/13/23 10:00 Narrative: General: Morbidly obese, mild respiratory distress on high flow oxygen. HEENT: Mild pallor with no jaundice. Mucous membranes are moist. Neck: no JVD no bruit. Heart: S1-S2. RRR Respiratory: Decreased breath sounds bilaterally due to body habitus. No wheezing no crackles Abdomen: Soft, positive bowel sounds,no tenderness. Difficult to palpate organs. Neurology: Awake alert oriented x3. No focal deficits Extremity. No cyanosis. +2 edema of lower extremity Skin: No skin rash Elliott catheter in place which is draining light yellow urine Objective Intake and Output I&O: Intake & Output 11/10/23 11/11/23 11/12/23 11/13/23 23:59 23:59 23:59 23:59 Intake Total 0 / 0 990 / 990 200 / 200 Output Total 100 / 100 800 / 800 875 / 875 Balance -100 / -100 190 / 190 -675 / -675 Weight 143.4 kg 142.6 kg 146.5 kg Meds and Allergies Meds: Active Medications Acetaminophen (Acetaminophen 325 Mg Tablet) 650 mg PO Q6HR PRN PRN Reason: Pain Scale 1 - 3 or fever Stop: 11/10/24 19:44 Albuterol/Ipratropium (Ipratropium/Albuterol 0.5-3 Mg 3 Ml Ampul.Neb) 3 ml INHALATION QID.RESP PRN PRN Reason: wheezing Stop: 11/11/24 07:59 Dextrose (Dextrose 50% In Water 25 Gm/50 Ml Syringe) 0 gm IV-PUSH PRN PRN PRN Reason: Hypoglycemia Stop: 11/10/24 20:56 Glucose (Dextrose 40% Gel 15 Gm Tube) 0 gm PO PRN PRN PRN Reason: Hypoglycemia Stop: 11/10/24 20:56 Last Admin: 11/12/23 17:38 Dose: 30 gm Ceftriaxone Sodium (Rocephin) 2 gm in 50 mls @ 100 mls/hr IV Q24H [facility] Stop: 11/15/23 08:29 Last Admin: 11/13/23 09:17 Dose: 100 mls/hr Insulin Aspart (Insulin Aspart 300 Units/3 Ml Insuln.Pen) 0 units SUBCUT TID..[facility]; Protocol Stop: 11/10/24 21:59 Last Admin: 11/13/23 14:08 Dose: Not Given Insulin Glargine (Insulin Glargine 300 Units/3 Ml Insuln.Pen) 35 units SUBCUT QHS [facility] Stop: 11/10/24 21:59 Last Admin: 11/12/23 21:43 Dose: 35 units Melatonin (Melatonin 5 Mg Tablet) 5 mg PO QHS PRN PRN Reason: Insomnia Stop: 11/10/24 19:44 Last Admin: 11/12/23 21:29 Dose: 5 mg Morphine Sulfate (Morphine Sulfate 2 Mg/Ml Vial) 2 mg IV-PUSH Q4H PRN PRN Reason: Pain Scale 8 - 10 Last Admin: 11/12/23 21:38 Dose: 2 mg Ondansetron HCl (Ondansetron 4 Mg/2 Ml Vial) 4 mg IV-PUSH Q8H PRN PRN Reason: Nausea And Vomiting Stop: 11/10/24 19:44 Sennosides (Sennosides 8.6 Mg Tablet) 1 tab PO BID JIMMIE Stop: 11/10/24 20:59 Last Admin: 11/13/23 09:00 Dose: Not Given Allergies Penicillins Allergy (Verified 10/06/23 20:32) Rash Results - Nephrology Labs 11/13/23 09:11 11/13/23 09:11 Labs: 11/13/23 09:11 BUN 87 H Creatinine 3.26 H D Albumin 3.5 Radiology Impressions Impressions - last 24 hours: Impressions Chest X-Ray 11/12/23 13:41 IMPRESSION: Stable findings Impression dictated by: Migue Wild M.D.11/12/2023 2:47 PM Dictation Location: [place] [address] Any impression(s) listed above is documentation that was entered by the reading physician into a diagnostic report(s) for Nicole Lora. I have reviewed the report(s) and am incorporating any findings in the treatment plan of this patient where applicable. A&P - Nephrology Assessment/Plan (1) Acute kidney injury superimposed on CKD: Assessment/Problem Details: He has AMY possibly due to the ATN in setting of relative hypotension and prolonged hypovolemia. (2) CKD (chronic kidney disease) stage 3, GFR 30-59 ml/min: Assessment/Problem Details: He has a CKD due to longstanding DM and HTN with baseline serum creatinine 1.5 to 1.9 mg/dL. (3) Type 2 diabetes mellitus with diabetic chronic kidney disease: Assessment/Problem Details: He has an insulin-dependent type 2 diabetes mellitus and currently takes insulinglargine at home. (4) Hypertensive chronic kidney disease with stage 1 through stage 4 chronic kidney disease, or unspecified chronic kidney disease: Assessment/Problem Details: Blood pressure is relatively low. Patient was on torsemide at home. (5) (HFpEF) heart failure with preserved ejection fraction: Assessment/Problem Details: His echocardiogram showed preserved function. He appears to be compensated. Hewas taking diuretic at home. (6) Chronic respiratory failure with hypercapnia: Assessment/Problem Details: He has a chronic hypercapnic respiratory failure due to the obesity hypoventilation syndrome and COPD. He usually has compensatory metabolic alkalosis but in the setting of AMY he is not having any renal compensation. Plan * Renal function and urine output started to improve with better blood pressure after discontinuation of diuretics. It was reported that the patient was on lisinopril as well. Serum creatinine is down to 3.26 mg/dL and potassium down to 5.3 mEq/L. Will continue monitor. No need for IV fluids * Continue to hold home dose of the diuretics, gabapentin and Jentadueto * Patient is current on ceftriaxone. Urine culture from Elliott catheter showed Enterobacter [place] complex and Kaelyn albicans. * Continue DM management as per the primary hospitalist team. The goal of blood sugar is 100 to 150 mg/dL. * Continue Elliott care. * Check renal function daily monitor input output Documented By: Hood Zacarias MD 11/13/23 141 Signed By: <Electronically signed by MD Hood Zacarias> 11/13/23 1427 [facility] Work Phone: 1([phone]) 230-635903-24-2024 Progress note Author Durga Loza [facility] November 12, 2023 1:45pm Note Date/Time November 12, 2023 1:4 5pm [facility] [address] [place] [address] Hospitalist Progress Note Signed Patient: Nicole Lora MR#: [id number] 29 : 1960 Acct:[id number] Age/Sex: 63 / M Adm Date: 4 Loc: Room: [address] [place] [address] Type: ADM IN Attending Dr: Durga Loza MD Copies to: ~ Date of Service: 11/12/2023 Subjective Subjective Narrative: Patient was seen at bedside. He was resting comfortably however he is still requiring very high supplemental oxygen at 6 L. Patient appears to be dry to me. He does have a very dark urine. He was somewhat drowsy but he was arousable and talking in right sentences. [facility] computer system was down socx-ray of the chest and renal ultrasound could not be performed yet. ON ADMISSION: Mr Lora is a 63-year-old male with past medical history of CKD stage III, diabetes type 2, TC, COPD, CHF with preserved ejection fraction [facility] for chief complaint of shortness of breath and CO2 retention. I spoke with the daughter upon arrival to our hospital, the cousin Arely went to check on him this morning and stated he was not wearing his oxygen was on the floor, it is unsure how long theoxygen was not on as the nasal cannula was found underneath the recliner, to theknowledge it was on yesterday when they visited. The patient has been complaining more more lately of his Elliott catheter in regards to pain in his penis. He was admitted this hospital on October 07 for a CHF and COPD exacerbation, he was discharged with return of his kidney function his baseline 1.9 a creatinine and a prescription for torsemide 40 mg daily, he did have a nephrology follow-up on October 19 however in our computer system it appears and that was canceled. I spoke with the daughter, Davin who says that the patientwas [facility] roughly 1 week later after discharge from our facility and there was some adjustments to his diuretic therapy howevershe is not sure what the new medication was, medication list received from [facility] emergency room note shows Lasix 40 mg in the morning and 20 mg at night however this is from September 16 and not his current diuretic dose. She says lately his urine output has been decreasing, upon arrival to our hospital evening his urine was very dark tea colored and is not sure when the bag was last emptied. The daughter also explained that he recently had a hole in his Elliott bag and it was leaking at home for a while. At [facility] he did receive 2 L of IV fluids and then subsequently transferred here for a nephrologyconsult. His labs at [facility] were notable for BUN of 76 and a creatinine of 4.9, potassium 5.3 and anion gap of 18. His troponins were negative on 2 separate draws, BNP was slightly elevated at 99. ABG performed there showed pH 7.25/CO2 58/O2 57. He did have a brief trial of BiPAP and reportedly did not require this very long. Upon my assessment the patient is drowsy, he does wake up to verbal and painful stimuli, he does follow commands, he is moving all of his extremities. He denies being in any pain. Exam Physical Exam Vital Signs: Temp Pulse Resp BP Pulse Ox O2 Del Method O2 Flow Rate 97.5 F L 69 18 129/53 L 95 Nasal Cannula 6 11/12/23 03:57 11/12/23 11:57 11/12/23 11:57 11/12/23 11:57 11/12/23 11:57 11/12/23 11:57 11/12/23 11:57 Objective Lab Results 11/12/23 04:54 11/12/23 04:54 Meds Allergies and Active Meds Allergies Penicillins Allergy (Verified 10/06/23 20:32) Rash Active Meds: Active Medications Generic Name Dose Route Start Last Admin Trade Name Freq PRN Reason Stop Dose Admin Acetaminophen 650 mg 11/11/23 19:45 Acetaminophen 325 Mg Tablet PO 11/10/24 19:44 Q6HR PRN Pain Scale 1 - 3 or fever Albuterol/Ipratropium 3 ml 11/11/23 20:55 Ipratropium/Albuterol 0.5-3 Mg 3 Ml Ampul.Neb INHALATION 11/11/24 07:59 QID.RESP PRN wheezing Dextrose 0 gm 11/11/23 20:57 Dextrose 50% In Water 25 Gm/50 Ml Syringe IV-PUSH 11/10/24 20:56 PRN PRN Hypoglycemia Glucose 0 gm 11/11/23 20:57 Dextrose 40% Gel 15 Gm Tube PO 11/10/24 20:56 PRN PRN Hypoglycemia Heparin Sodium (Porcine) 5,000 unit 11/11/23 22:00 11/12/23 07:27 Heparin 5,000 Unit/Ml Vial SUBCUT 11/10/24 21:59 Not Given Q8HR JIMMIE Ceftriaxone Sodium 2 gm in 50 mls @ 100 mls/hr 11/12/23 08:00 11/12/23 10:17 Rocephin IV 11/15/23 08:29 100 mls/hr Q24H JIMMIE Administration Insulin Aspart 0 units 11/11/23 22:00 11/12/23 11:57 Insulin Aspart 300 Units/3 Ml Insuln.Pen SUBCUT 11/10/24 21:59 3 units TID.WM.HS JIMMIE Administration Protocol Insulin Aspart 12 units 11/12/23 07:30 11/12/23 11:57 Insulin Aspart 300 Units/3 Ml Insuln.Pen 0.083 units/kg (12 units) 11/11/24 07:29 12 units SUBCUT Administration TID.AC [facility] Insulin Glargine 35 units 11/11/23 22:00 11/11/23 22:51 Insulin Glargine 300 Units/3 Ml Insuln.Pen SUBCUT 11/10/24 21:59 35 units QHS JIMMIE Administration Melatonin 5 mg 11/11/23 19:45 Melatonin 5 Mg Tablet PO 11/10/24 19:44 QHS PRN Insomnia Morphine Sulfate 2 mg 11/11/23 19:45 Morphine Sulfate 2 Mg/Ml Vial IV-PUSH Q4H PRN Pain Scale 8 - 10 Ondansetron HCl 4 mg 11/11/23 19:45 Ondansetron 4 Mg/2 Ml Vial IV-PUSH 11/10/24 19:44 Q8H PRN Nausea And Vomiting Sennosides 1 tab 11/11/23 21:00 11/12/23 10:16 Sennosides 8.6 Mg Tablet PO 11/10/24 20:59 1 tab BID JIMMIE Administration A&P - Hospitalist Assessment/Plan (1) Acute kidney injury superimposed on CKD: Plan: Baseline creatinine is 1.9, creatinine today on [facility] 4.9, at our facility it is 4.6 2:03 liters fluid ? Continue with normal saline for 1 more liter overnight, recheck BMP in the morning ? Urine protein, creatinine, sodium, potassium, eosinophils ordered ? Renal ultrasound ordered ? Nephrology consulted ? AMY is likely secondary to volume depletion (2) Urine retention: Plan: Has had a Elliott catheter placed, set up with urology for cystoscopy on November 19 ? Daughter states Elliott catheter has been in for roughly 2 months now (3) Chronic kidney disease, stage 3a: Plan: See above (4) Obesity hypoventilation syndrome: (5) Hypertension: Plan: Will hold his antihypertensives until we get accurate medication list (6) Edema: Plan: See above (7) COPD (chronic obstructive pulmonary disease): Plan: Not in exacerbation, DuoNebs as needed for wheezing (8) Lymphedema: (9) CHF (congestive heart failure): (10) Hyperkalemia: Plan: ? Secondary to AMY ? She received 10 mg Lokelma tonight ? Recheck potassium in the morning (11) Diabetes mellitus, type 2: Plan: Hold all oral antihyperglycemic's including metformin ? Initiate insulin, weight-based ? 35 units glargine nightly ? 12 units lispro 3 times daily AC ? #2 sliding scale ? He is hyperglycemic tonight, will receive 10 units lispro this evening ? Glucose checks ACHS (12) Diastolic heart failure: Plan: Stable and not in exacerbation ? Echocardiogram performed on October 07 showed EF of 65 to 70% ? No indication to repeat echocardiogram this admission Plan ASSESSMENT AND PLAN: 11/12/2023 - Will continue with current medical therapy and plan as detailed above. ? DVT prophylaxis addressed ? Diabetic diet with fluid restriction ? Full code Daughter, Davin see can be reached at [phone] Documented By: Durga Loza MD 11/12/231341 Signed By: <Electronically signed by Durga Loza MD> 11/12/231344 [facility] Work Phone: 1(848) 709-313103-24-2024 Consult note Author Bladimir Story [facility] November 12, 2023 11:53am Note Date/Time November 12, 2023 11: 31am [facility] [address] [place] [address] Nephrology Consult Note Signed Patient: Nicole Lora MR#: [id number] 29 : 1960 Acct:[id number] Age/Sex: 63 / M Adm Date: 4 Loc: Room: [address] [place] [address] Type: ADM IN Attending Dr: Durga Loza MD Copies to: MD Mounika Limon MD, MD~ Providers Consult Date: 11/12/23 Requesting Provider: Durga Loza MD Primary Care Provider: Mounika Brooke MD HPI Reason for Consult: AMY on CKD History of Present Illness: This is a 63-year-old male with a medical history of CKD, DM, HTN, TC, COPD, CHF was transferred from [facility] for shortness of breath and hypercapnic respiratory failure. Patient was admitted at [facility] for COPD and CHF. During hospitalization he was also found to have AMY on CKD due to the cardiorenal syndrome. His renal function improved with diuresis. Patient was also found to have urine retentionand had Elliott catheter. Patient was readmitted at [facility] and his diuretic regimen was adjusted. His labs in ER showed AMY with serum creatinine 4.9 mg/dL and hyperkalemia with serum potassium 4.3 mmol/L and anion gap of 18. Patient ABG showed pH 7.25 pCO2 58 oxygen saturation 57. He was placed on BiPAP briefly. Patient on arrival at [facility] had ABG which showed pH 7.19, pCO2 65.9 pO2 90.9%. Patient has a CKD dueto the longstanding DM and HTN baseline creatinine around 1.5 to 1.9 g/dL. Nephrology is consulted for AMY on CKD management. Patient was seen and examined at bedside he reported to have a jerky head movements. Review of Systems Review of Systems All other systems reviewed & are negative unless noted below or in HPI Review of systems: Cardiovascular: denies any chest pain, palpitation Pulmonary: denies any cough, hemoptysis Gastrointestinal: denies any nausea, vomiting, diarrhea Neurological :denies any headache, numbness, weakness Endocrine: denies any polyuria, polydipsia Dermatological: denies any itching or rash [facility] Medical History (Updated 11/12/23 @ 11:27 by Bladimir Story MD) Left toe amputee Asthma Amputation of one or more toes All toes to left foot and second metatarsal to right foot Diabetes mellitus, type 2 Social History Smoking Status: Never smoker Substance Use Type: None Meds Medications & Allergies Allergies Penicillins Allergy (Verified 10/06/23 20:32) Rash Home Medications budesonide-formoterol HFA 160 mcg-4.5 mcg/actuation aerosol inhaler (Symbicort) 2 puff inhalation BID 06/19/23 [History Confirmed 10/07/23] gabapentin 600 mg tablet 600 mg PO TID 06/19/23 [History Confirmed 10/06/23] insulin lispro 100 unit/mL subcutaneous solution (Humalog U-100 Insulin) 1 sliding scale dose 06/19/23 [History Confirmed 06/19/23] pantoprazole 40 mg tablet,delayed release 40 mg PO DAILY 06/19/23 [History Confirmed 10/07/23] ropinirole 1 mg tablet 1 mg PO QHS 06/19/23 [History Confirmed 10/06/23] insulin glargine U-300 conc 300 unit/mL (3 mL) subcutaneous pen (Toujeo Max U- 300 SoloStar) 35 unit (0.1167 mL) subcut BID #3 mL 06/21/23 [Rx Confirmed 10/06/23] atorvastatin 40 mg tablet 40 mg PO DAILY 10/06/23 [History Confirmed 10/06/23] tamsulosin 0.4 mg capsule 0.4 mg PO DAILY 10/06/23 [History Confirmed 10/06/23] hydralazine 50 mg tablet 75 mg (1.5 x 50 mg) PO BID 60 days #180 tabs 10/12/23 [Rx] linagliptin 2.5 mg-metformin 1,000 mg tablet (Jentadueto) 1 tab PO DAILY #30 tabs 10/12/23 [Rx Confirmed 10/06/23] torsemide 20 mg tablet 40 mg (2 x 20 mg) PO DAILY@0800 30 days #30 tabs 10/12/23[Rx] Active Medications: Active Medications Acetaminophen (Acetaminophen 325 Mg Tablet) 650 mg PO Q6HR PRN PRN Reason: Pain Scale 1 - 3 or fever Stop: 11/10/24 19:44 Albuterol/Ipratropium (Ipratropium/Albuterol 0.5-3 Mg 3 Ml Ampul.Neb) 3 ml INHALATION QID.RESP PRN PRN Reason: wheezing Stop: 11/11/24 07:59 Dextrose (Dextrose 50% In Water 25 Gm/50 Ml Syringe) 0 gm IV-PUSH PRN PRN PRN Reason: Hypoglycemia Stop: 11/10/24 20:56 Glucose (Dextrose 40% Gel 15 Gm Tube) 0 gm PO PRN PRN PRN Reason: Hypoglycemia Stop: 11/10/24 20:56 Heparin Sodium (Porcine) (Heparin 5,000 Unit/Ml Vial) 5,000 unit SUBCUT Q8HR JIMMIE Stop: 11/10/24 21:59 Last Admin: 11/12/23 07:27 Dose: Not Given Ceftriaxone Sodium (Rocephin) 2 gm in 50 mls @ 100 mls/hr IV Q24H JIMMIE Stop: 11/15/23 08:29 Last Admin: 11/12/23 10:17 Dose: 100 mls/hr Insulin Aspart (Insulin Aspart 300 Units/3 Ml Insuln.Pen) 0 units SUBCUT TID.WM.HS [facility]; Protocol Stop: 11/10/24 21:59 Last Admin: 11/12/23 10:16 Dose: 2 units Insulin Aspart (Insulin Aspart 300 Units/3 Ml Insuln.Pen) 12 units 0.083 units/kg (12 units) SUBCUT TID.AC [facility] Stop: 11/11/24 07:29 Last Admin: 11/12/23 10:16 Dose: 12 units Insulin Glargine (Insulin Glargine 300 Units/3 Ml Insuln.Pen) 35 units SUBCUT QHS [facility] Stop: 11/10/24 21:59 Last Admin: 11/11/23 22:51 Dose: 35 units Melatonin (Melatonin 5 Mg Tablet) 5 mg PO QHS PRN PRN Reason: Insomnia Stop: 11/10/24 19:44 Morphine Sulfate (Morphine Sulfate 2 Mg/Ml Vial) 2 mg IV-PUSH Q4H PRN PRN Reason: Pain Scale 8 - 10 Ondansetron HCl (Ondansetron 4 Mg/2 Ml Vial) 4 mg IV-PUSH Q8H PRN PRN Reason: Nausea And Vomiting Stop: 11/10/24 19:44 Sennosides (Sennosides 8.6 Mg Tablet) 1 tab PO BID [facility] Stop: 11/10/24 20:59 Last Admin: 11/12/23 10:16 Dose: 1 tab Exam Physical Exam Vital Signs: Temp Pulse Resp BP Pulse Ox O2 Del Method O2 Flow Rate 97.5 F L 70 20 111/77 92 L Nasal Cannula 6 11/12/23 03:57 11/12/23 08:00 11/12/23 08:00 11/12/23 08:00 11/12/23 08:00 11/12/23 08:00 11/12/23 08:00 Narrative: General: Appears comfortable and not in distress Heart: S1-S2, no rub Lung: Bilateral air entry, no wheezing or crackles Abdomen: Soft, positive bowel sounds Extremities: No edema, no cyanosis Head: Atraumatic, normocephalic Ear: No gross hearing Deficit or external ear redness Eyes: No pallor or redness Neck: No JVD or visible mass Skin: No rashes , warm to touch [employer]: Awake,Alert, following simple command Musculoskeletal: No swelling or limitation of movement of the large joints Psychiatric: Cooperative, normal mood and affect Results - Nephrology Labs 11/12/23 04:54 11/12/23 04:54 Labs: 11/11/23 11/11/23 11/12/23 19:27 22:20 04:54 BUN 78 H 80 H Creatinine 4.63 H 4.44 H Albumin 3.4 L Urine Color Hard[place] A Urine Appearance Turbid A Urine pH 5.0 Ur Specific [place] 1.017 Urine Protein 100 H Urine Glucose (UA) Normal Urine Ketones Negative Urine Occult Blood 3+ H Urine Nitrite Negative Ur Leukocyte Esterase 3+ H Urine RBC Innumerable H Urine WBC 50-100 H Urine Bacteria None seen Radiology Impressions Impressions - last 24 hours: Any impression(s) listed above is documentation that was entered by the reading physician into a diagnostic report(s) for Nicole Lora. I have reviewed the report(s) and am incorporating any findings in the treatment plan of this patient where applicable. A&P - Nephrology Assessment/Plan (1) Acute kidney injury superimposed on CKD: Assessment/Problem Details: He has AMY possibly due to the ATN in setting of relative hypotension and prolonged hypovolemia. (2) CKD (chronic kidney disease) stage 3, GFR 30-59 ml/min: Assessment/Problem Details: He has a CKD due to longstanding DM and HTN with baseline serum creatinine 1.5 to 1.9 mg/dL. (3) Type 2 diabetes mellitus with diabetic chronic kidney disease: Assessment/Problem Details: He has an insulin-dependent type 2 diabetes mellitus and currently takes insulin glargine at home. (4) Hypertensive chronic kidney disease with stage 1 through stage 4 chronic kidney disease, or unspecified chronic kidney disease: Assessment/Problem Details: Blood pressure is relatively low. He was taking metoprolol and lisinopril at home. (5) (HFpEF) heart failure with preserved ejection fraction: Assessment/Problem Details: His echocardiogram showed preserved function. He appears to be compensated. He was taking diuretic at home. (6) Chronic respiratory failure with hypercapnia: Assessment/Problem Details: He has a chronic hypercapnic respiratory failure due to the obesity hypoventilation syndrome and COPD. He usually has compensatory metabolic alkalosis but in the setting of AMY he is not having any renal compensation. Plan * No need for emergent hemodialysis now. Will continue to assess its needs on regular basis. * Patient appears to be well compensated based on the exam. Will check chest x- ray to confirm it. Will give gentle fluid resuscitation if chest x-ray showed no acute finding * Continue to hold home dose of the diuretics, gabapentin and Jentadueto * Continue empiric antibiotics and adjust as needed based on culture and sensitivity. * Continue DM management as per the primary hospitalist team. The goal of blood sugar is 100 to 150 mg/dL. * Continue Elliott care. * Check renal function daily monitor input output * Thanks for consult. Will continue follow with you. Please feel free to call us with any question. * Documented By: Bladimir Story MD 11/12/23 1121 Signed By: <Electronically signed by Bladimir Story MD> 11/12/23 1153 [facility] Work Phone: 1(869) 494-439003-23-2024 History and physical note Author Tera Nevarez [facility] November 11, 2023 9:06pm Note Date/Time November 11, 2023 8:0 3pm [facility] [address] [place] [address] Hospitalist H&P Signed with Addenda Patient: Nicole Lora MR#: [id number] [birth year] : 1960 Acct:[id number] Age/Sex: 63 / M Adm Date: 4 Loc: Room: [address] [place] [address] Type: ADM IN Attending Dr: Tera Nevarez DO Copies to: Mounika Nevarez, DO~ ADDENDUM1 Please add urinary tract infection to his assessment and plan Acute complicated UTI Patient has a Elliott catheter in, ceftriaxone 2 g every 24 ? Urinalysis and culture were sent from [facility], will call tomorrow to see if his gram-positive or gram-negative on the Gram stain Repeat ABG drawn shows worsening acidosis with hypercapnia however his baseline CO2 is likely 50-60 and an ABG from May in our system shows normal pH with the same CO2 but with elevated bicarb. I have suspicion that his current acidemia is metabolic in nature and a normal bicarb for him may be a low bicarb on a person that is not a chronic retainer. Will defer management of his acid base disorder to nephrology and also trend bicarb with correction of his AMY. Addendum Documented By: Tera Nevarez DO 11/11/232105 Addendum Signed By: <Electronically signed by Tera Nevarez DO> 11/11/232105 HPI DATE OF EXAMINATION: 11/11/23 CHIEF COMPLAINT: shortness of breath HISTORY OF PRESENT ILLNESS: Mr Lora is a 63-year-old male with past medical history of CKD stage III, diabetes type 2, TC, COPD, CHF with preserved ejection fraction [facility] outside facility for chief complaint of shortness of breath and CO2 retention. I spoke with the daughter upon arrival to our hospital, the cousin Arely went to check on him this morning and stated he was not wearing his oxygen was on the floor, it is unsure how long theoxygen was not on as the nasal cannula was found underneath the recliner, to theknowledge it was on yesterday when they visited. The patient has been complaining more more lately of his Elliott catheter in regards to pain in his penis. He was admitted this hospital on October 07 for a CHF and COPD exacerbation, he was discharged with return of his kidney function his baseline 1.9 a creatinine and a prescription for torsemide 40 mg daily, he did have a nephrology follow-up on October 19 however in our computer system it appears and that was canceled. I spoke with the daughter, Davin who says that the patientwas [facility] roughly 1 week later after discharge from our facility and there was some adjustments to his diuretic therapy howevershe is not sure what the new medication was, medication list received from [facility] emergency room note shows Lasix 40 mg in the morning and 20 mg at night however this is from September 16 and not his current diuretic dose. She says lately his urine output has been decreasing, upon arrival to our hospital evening his urine was very dark tea colored and is not sure when the bag was last emptied. The daughter also explained that he recently had a hole in his Elliott bag and it was leaking at home for a while. At [facility] he did receive 2 L of IV fluids and then subsequently transferred here for a nephrologyconsult. His labs at [facility] were notable for BUN of 76 and a creatinine of 4.9, potassium 5.3 and anion gap of 18. His troponins were negative on 2 separate draws, BNP was slightly elevated at 99. ABG performed there showed pH 7.25/CO2 58/O2 57. He did have a brief trial of BiPAP and reportedly did not require this very long. Upon my assessment the patient is drowsy, he does wake up to verbal and painful stimuli, he does follow commands, he is moving all of his extremities. He denies being in any pain. Review of Systems Review of Systems All other systems reviewed & are negative unless noted below or in HPI [facility] Medical History (Updated 11/11/23 @ 20:47 by Tera Nevarez, ) Left toe amputee Asthma Amputation of one or more toes All toes to left foot and second metatarsal to right foot Diabetes mellitus, type 2 Social History Smoking Status: Never smoker Substance Use Type: None Meds Medications and Allergies Allergies Penicillins Allergy (Verified 10/06/23 20:32) Rash Home Medications budesonide-formoterol HFA 160 mcg-4.5 mcg/actuation aerosol inhaler (Symbicort) 2 puff inhalation BID 06/19/23 [History Confirmed 10/07/23] gabapentin 600 mg tablet 600 mg PO TID 06/19/23 [History Confirmed 10/06/23] insulin lispro 100 unit/mL subcutaneous solution (Humalog U-100 Insulin) 1 sliding scale dose 06/19/23 [History Confirmed 06/19/23] pantoprazole 40 mg tablet,delayed release 40 mg PO DAILY 06/19/23 [History Confirmed 10/07/23] ropinirole 1 mg tablet 1 mg PO QHS 06/19/23 [History Confirmed 10/06/23] insulin glargine U-300 conc 300 unit/mL (3 mL) subcutaneous pen (Toujeo Max U- 300 SoloStar) 35 unit (0.1167 mL) subcut BID #3 mL 06/21/23 [Rx Confirmed 10/06/23] atorvastatin 40 mg tablet 40 mg PO DAILY 10/06/23 [History Confirmed 10/06/23] tamsulosin 0.4 mg capsule 0.4 mg PO DAILY 10/06/23 [History Confirmed 10/06/23] hydralazine 50 mg tablet 75 mg (1.5 x 50 mg) PO BID 60 days #180 tabs 10/12/23 [Rx] linagliptin 2.5 mg-metformin 1,000 mg tablet (Jentadueto) 1 tab PO DAILY #30 tabs 10/12/23 [Rx Confirmed 10/06/23] torsemide 20 mg tablet 40 mg (2 x 20 mg) PO DAILY@0800 30 days #30 tabs 10/12/23[Rx] Exam Physical Exam Vital Signs: Temp Pulse Resp BP Pulse Ox O2 Del Method O2 Flow Rate 97.7 F 65 19 129/64 96 Nasal Cannula 4 11/11/23 18:11 11/11/23 18:11 11/11/23 18:11 11/11/23 18:11 11/11/23 18:29 11/11/23 18:29 11/11/23 18:29 Narrative: General: Drowsy, arousable HEENT: head atraumatic, normocephalic, extremely dry mucous membranes Neck: supple no masses, no lymphadenopathy CVS: regular rate and rhythm, no murmurs or gallops Respiratory: Diminished breath sounds bilaterally, no wheezes appreciated GI: soft, obese, nontender, positive bowel sounds with no organomegaly Extremity: moves all extremities, does not appear to react to any palpation on his calfs, he has no toes on the left foot, there is an open sore on the left lateral aspect of his plantar surface of his foot, there is no erythema or drainage noted. Neuro: Moves all extremities in all planes of motion. Skin: dry Results - Hospitalist H&P Lab Results Labs: Laboratory Last Values Corrected WBC 7.3 X10E3/uL (4.1-10.5) 11/11/23 19:27 Uncorrected WBC Count 7.3 x10E3/uL (4.1-10.5) 11/11/23 19:27 RBC 4.57 X10E6/uL (3.90-5.60) 11/11/23 19:27 Hgb 12.0 g/dL (13.0-17.0) L 11/11/23 19:27 Hct 38.8 % (38.8-50.0) 11/11/23 19:27 MCV 84.9 fl (83.5-101) 11/11/23 19: MCH 26.2 pg (27.5-35.2) L 11/11/23 19:27 MCHC 30.9 g/dL (32.5-35.6) L 11/11/23 19: RDW 18.9 % (12.0-14.8) H 11/11/23 19: Plt Count 237 x10E3/uL (150-450) 11/11/23 19: MPV 7.0 fl (6.6-10.1) 11/11/23: Neut % (Auto) 73.6 % (.) 11/11/23: Lymph % (Auto) 14.5 % (.) 11/11/23 19: Mccreary % (Auto) 9.1 % (.) 11/11/23: Eos % (Auto) 2.1 % (.) 11/11/23: Baso % (Auto) 0.7 % (.) 11/11/23: Nucleat RBC Rel Count 0.1 /100 WBC (0-0.5) 11/11/23: Neut # (Auto) 5.4 x10E3/uL (1.8-7.7) 11/11/23 19: Lymph # (Auto) 1.1 x10E3/uL (1.00-4.8) 11/11/23: Mccreary # (Auto) 0.7 x10E3/uL (0.0-0.8) 11/11/23 19: Eos # (Auto) 0.2 x10E3/uL (0.0-0.45) 11/11/23: Baso # (Auto) 0.0 x10E3/uL (0.0-0.2) 11/11/23 19: Lactic Acid 0.8 mmol/L (0.5-2.2) 11/11/23 19: Assessment & Plan Assessment/Plan (1) Acute kidney injury superimposed on CKD: Plan: Baseline creatinine is 1.9, creatinine today on [facility] 4.9, at our facility it is 4.6 2:03 liters fluid ? Continue with normal saline for 1 more liter overnight, recheck BMP in the morning ? Urine protein, creatinine, sodium, potassium, eosinophils ordered ? Renal ultrasound ordered ? Nephrology consulted ? AMY is likely secondary to volume depletion (2) Urine retention: Plan: Has had a Elliott catheter placed, set up with urology for cystoscopy on November 19 ? Daughter states Elliott catheter has been in for roughly 2 months now (3) Chronic kidney disease, stage 3a: Plan: See above (4) Obesity hypoventilation syndrome: (5) Hypertension: Plan: Will hold his antihypertensives until we get accurate medication list (6) Edema: Plan: See above (7) COPD (chronic obstructive pulmonary disease): Plan: Not in exacerbation, DuoNebs as needed for wheezing (8) Lymphedema: (9) CHF (congestive heart failure): (10) Hyperkalemia: Plan: ? Secondary to AMY ? She received 10 mg Lokelma tonight ? Recheck potassium in the morning (11) Diabetes mellitus, type 2: Plan: Hold all oral antihyperglycemic's including metformin ? Initiate insulin, weight-based ? 35 units glargine nightly ? 12 units lispro 3 times daily AC ? #2 sliding scale ? He is hyperglycemic tonight, will receive 10 units lispro this evening ? Glucose checks ACHS (12) Diastolic heart failure: Plan: Stable and not in exacerbation ? Echocardiogram performed on October 07 showed EF of 65 to 70% ? No indication to repeat echocardiogram this admission Plan ? DVT prophylaxis addressed ? Diabetic diet with fluid restriction ? Full code Spoke with the daughter, Davin she can be reached at [phone] IP vs OBS Justification Based on differential dx, clinical care plan, and risk of adverse events, if untreated, in my clinical judgement this patient requires an acute care setting as: INPATIENT because of an expectation of an over 2 midnight stay. Estimated length of stay (# of days): 3 Documented By: Tera Nevarez DO 11/11/232000 Signed By: <Electronically signed by Tera Nevarez DO> 11/11/232052 [facility] Work Phone: [phone] Evaluation + Plan noteExtracted from: Title:ED Note Author:Paddy Betancourt PA-C te:11/11/23 Acute respiratory failure (J 96.00: Acute respiratory failure, unspecified whether with hypoxia or hypercapnia) AMY (acute kidney injury) (N17.9: Acute kidney failure, unspecified) COPD exacerbation (J44.1: Chronic obstructive pulmonary disease with (acute) exacerbation) Hypercapnia (R06.89: Other abnormalities of breathing) UTI (urinary tract infection) (N39.0: Urinary tract infection, site not specified) Orders: albuterol-ipratropium, 3 mL, Soln-Inh, Inhalation, Once, Stop date 11/11/23 9:03:00 EDT, STAT, Start date 11/11/23 9:03:00 EDT azithromycin + Sodium Chloride 0.9% intravenous solution 250 mL, 500 mg = 1 EA, IV Piggyback, Daily, STAT, Start date 11/11/23 10:20:00 EDT, 250 mL/hr, Infuse over 60 minute(s), 11/11/23 10:20:00 EDT ceftriaxone + Sodium Chloride 0.9% intravenous solution 50 mL, 1,000 mg = 1 EA, IV Piggyback, Once, Stop date 11/11/23 10:19:00 EDT, STAT, Start date 11/11/23 10:19:00 EDT, 100 mL/hr, Infuse over 30 minute(s), 11/11/23 10:19:00 EDT lorazepam, 1 mg = 0.5 mL, Injection, IV Push, Once, Stop date 11/11/23 12:00:00 EDT, STAT, Start date 11/11/23 12:00:00 EDT, 11/11/23 12:00:00 EDT morphine, 4 mg = 1 mL, Injection, IV Push, Once, Stop date 11/11/23 12:39:00 EDT, STAT, Start date 11/11/23 12:39:00 EDT, 11/11/23 12:39:00 EDT Sodium Chloride 0.9% intravenous solution, 1,000 mL, Soln-IV, IV, Once, Stop date 11/11/23 12:33:00 EDT, STAT, Start date 11/11/23 12:33:00 EDT, Infuse over 61, minute(s) B-Type Natriuretic Peptide Basic Metabolic Panel Bi-level Positive Airway Pressure Blood Culture Charcoal Blood Culture Charcoal Blood Gas Art, with Lytes, Gluc, Lact CBC w/ Auto Diff Continuous Pulse Oximetry ECG 12 Lead Adult ED Cardiac Monitoring eGFR Extra Green Li Tube Lactic Acid Oxygen Therapy PT & PTT Saline Lock Insert Transfer Patient to Troponin 0 Hr. Troponin 3 Hr. Troponin 6 Hr. Troponin 9 Hr. UA with Cult Rflx Urine Culture XR Chest Single View Future Appointments Appointment Date:11/16/2023 09:00:00 AM Scheduled Provider: Location:[facility] Appointment Type:Urology CALL PAT FT Appointment Date:11/20/2023 12:00:00 PM Scheduled Provider: Location:[facility] Appointment Type:Urology FT Appointment Date:11/20/2023 01:15:00 PM Scheduled Provider: Location:[facility] Appointment Type:Urology FT Diagnostic Tests Pending * Blood Culture Charcoal 11/11/23 * Blood Culture Charcoal 11/11/23 * Urine Culture 11/11/23 Future Scheduled Tests Radiology* XR Chest 2 Views 05/15/23 * XR Chest 2 Views 05/15/23 [facility]03-11-2024 Evaluation + Plan noteExtracted from: Title:ED Note Author:Staci Beck DO Date :10/30/23 Complication of Elliott cathet er (T83.9XXA: Unspecified complication of genitourinary prosthetic device, implant and graft, initial encounter) Future Appointments Appointment Date:11/01/2023 02:00:00 PM Scheduled Provider: Location:[facility] Appointment Type:URO Nurse Visit Appointment Date:11/16/2023 09:00:00 AM Scheduled Provider: Location:[facility] Appointment Type:Urology CALL PAT FT Appointment Date:11/20/2023 12:00:00 PM Scheduled Provider: Location:[facility] Appointment Type:Urology FT Appointment Date:11/20/2023 01:15:00 PM Scheduled Provider: Location:[facility] Appointment Type:Urology FT Future Scheduled Tests Radiology* XR Chest 2 Views 05/15/23 * XR Chest 2 Views 05/15/23 [facility]03-11-2024 Hospital Discharge instructions Patient Education 10/30/2023 05:35:44 Indwelling Urinary Catheter Care, Adult Indwelling Urinary Catheter Care, Adult An indwelling urinary catheter is a thin, flexible tube that is placed into the bladder to help drain urine out of the body. The catheter is inserted into the urethra. The urethra is the part of the body that drains urine from the bladder. Urine drains from the catheter into a drainage bag outside of the body. Taking good care of your catheter will keep it working properly and help to prevent problems from developing. What are the risks? Bacteria may get into your bladder and cause a urinary tract infection. Urine flow can become blocked. This can happen if the catheter is not working correctly, or if you have sediment or a blood clot in your bladder or catheter. Tissue near the catheter may become irritated and may bleed. How to wear your catheter and your drainage bag Supplies needed Adhesive tape or a leg strap. Alcohol wipe or soap and water (if you use tape). A clean towel (if you use tape). Overnight drainage bag. Smaller drainage bag (leg bag). Wearing your catheter and bag Use adhesive tape or a leg strap to attach your catheter to your leg. Make sure the catheter is not pulled tight. If a leg strap gets wet, replace it with a dry one. If you use adhesive tape: 1.Use an alcohol wipe or soap and water to wash off any stickiness on your skin where you had tape before. 2.Use a clean towel to pat-dry the area. 3.Apply the new tape. You should have received a large overnight drainage bag and a smaller leg bag that fits underneath clothing. You may wear the overnight bag at any time, but you should not wear the leg bag at night. Make sure the overnight drainage bag is always lower than the level of your bladder, but do not letit touch the floor. Before you go to sleep, hang the bag inside a wastebasket that is covered by a clean plastic bag. Secure the leg bag according to continuous improvement black belt's instructions. This may be above or below the knee, depending on the length of the tubing. Make sure that: ?The leg bag is below the bladder. ?The tubing does not have loops or too much tension. How to care for the skin around the catheter Supplies needed A clean washcloth. Water and mild soap. A clean towel. Caring for your skin and catheter Every day, use a clean washcloth and soapy water to clean the skin around your catheter. 1.Wash your hands with soap and water. 2.Wet a washcloth in warm water and mild soap. 3.Clean the skin around your urethra. ?If you are female: ?Use one hand to gently spread the folds of skin around your vagina (labia). ?With the washcloth in your other hand, wipe the inner side of your labia on each side. Do this in a [id number] direction. ?If you are male: ?Use one hand to pull back any skin that covers the end of your penis (foreskin). ?With the washcloth in your other hand, wipe your penis in small circles. Start wiping at the tip of your penis, then move outward from the catheter. ?Move the foreskin back in place, if needed. 4.With your free hand, hold the catheter close to where it enters your body. Keep holding the catheter during cleaning so it does not get pulled out. 5.Use your other hand to clean the catheter with the washcloth. ?Only wipe downward on the catheter, toward the bag. ?Do not wipe upward toward your body, because that may push bacteria into your urethra and cause infection. 6.Use a clean towel to pat-dry the catheter and the skin around it. Make sure to wipe off all soap. 7.Wash your hands with soap and water. Shower every day. Do not take baths. Do not use cream, ointment, or lotion on the area where the catheter enters your body, unless your health care provider tells you to do that. Do not use powders, sprays, or lotions on your genital area. Check your skin around the catheter every day for signs of infection. Check for: ?Redness, swelling, or pain. ?Fluid or blood. ?Warmth. ?Pus or a bad smell. How to empty the drainage bag Supplies needed Rubbing alcohol. Gauze pad or cotton ball. Adhesive tape or a leg strap. Emptying the bag Empty your drainage bag (your overnight drainage bag or your leg bag) when it is ? full, or at least 2 3 times a day. Clean the drainage bag according to the continuous improvement black belt's instructions or as told byyour health care provider. 1.Wash your hands with soap and water. 2.Detach the drainage bag from your leg. 3.Hold the drainage bag over the toilet or a clean container. Make sure the drainage bag is lower than your hips and bladder. This stops urine from going back into the tubing and into your bladder. 4.Open the pour spout at the bottom of the bag. 5.Empty the urine into the toilet or container. Do not let the pour spout touch any surface. This precaution is important to prevent bacteria from getting in the bag and causing infection. 6.Apply rubbing alcohol to a gauze pad or cotton ball. 7.Use the gauze pad or cotton ball to clean the pour spout. 8.Close the pour spout. 9.Attach the bag to your leg with adhesive tape or a leg strap. 10.Wash your hands with soap and water. How to change the drainage bag Supplies needed: Alcohol wipes. A clean drainage bag. Adhesive tape or a leg strap. Changing the bag Replace your drainage bag with a clean bag if it leaks, starts to smell bad, or looks dirty. 1.Wash your hands with soap and water. 2.Detach the dirty drainage bag from your leg. 3.Pinch the catheter with your fingers so that urine does not spill out. 4.Disconnect the catheter tube from the drainage tube at the connection valve. Do not let the tubestouch any surface. 5.Clean the end of the catheter tube with an alcohol wipe. Use a different alcohol wipe to clean the end of the drainage tube. 6.Connect the catheter tube to the drainage tube of the clean bag. 7.Attach the clean bag to your leg with adhesive tape or a leg strap. Avoid attaching the new bag too tightly. 8.Wash your hands with soap and water. General instructions Never pull on your catheter or try to remove it. Pulling can damage your internal tissues. Always wash your hands before and after you handle your catheter or drainage bag. Use a mild, fragrance-free soap. If soap and water are not available, use hand tuber operator. Always make sure there are no twists, bends, or kinks in the catheter tube. Always make sure there are no leaks in the catheter or drainage bag. Drink enough fluid to keep your urine pale yellow. Do not take baths, swim, or use a hot tub. If you are female, wipe from front to back after having a bowel movement. Contact a health care provider if: Your catheter gets clogged. Your catheter starts to leak. You have signs of infection at the catheter site, such as: ?Redness, swelling, or pain where the catheter enters your body. ?Fluid, blood, pus, or a bad smell coming from the area where the catheter enters your body. ?The area where the catheter enters your body feels warm to the touch. You have signs of a urinary tract infection, such as: ?Fever or chills. ?Urine smells unusually bad. ?Cloudy urine. ?Pain in your abdomen, legs, lower back, or bladder. ?Nausea or vomiting. Get help right away if: You see blood in the catheter. Your urine is pink or red. Your bladder feels full. Your urine is not draining into the bag. Your catheter gets pulled out. Summary An indwelling urinary catheter is a thin, flexible tube that is placed into the bladder to help drain urine out of the body. The catheter is inserted into the part of the body that drains urine from the bladder (urethra). Take good care of your catheter to keep it working properly and help prevent problems from developing. Always wash your hands before and after you handle your catheter or drainage bag. Never pull on your catheter or try to remove it. This information is not intended to replace advice given to you by your health care provider. Make sure you discuss any questions you have with your health care provider. Document Revised: 04/07/2022 Document Reviewed: 04/07/2022 [employer] Content Patient Education 2022 [employer]. Follow Up Care 10/30/2023 05:10:48 With:Taz THOMAS Address: [address] [address] Business (1) When:11/02/2023 05:21:06 Comments:Follow-up with urology for further evaluation and management. Please return to the ED for any new or worsening symptoms. With:REID BROOKE Address: [address] [address] Business (1) When:Within 3 Day(s) [facility]03-09-2024 NoteHNO ID: [id number] Author: JOHN SPANN RN Service: ? Author Type: Registered Nurse Type: Progress Notes Filed: 10/28/2023 13:45 Note Text: Patient given discharge instructions and printed AVS summary. Medications reviewed in detail including next dose due, indication, and side effects. CHF management including symptoms to report reviewed. All questions answered. IV access discontinued, heart monitor off, and valuables packed by patient. TELECOMMUNICATIONS OPERATOR medications with patient. Awaiting daughter to transport patient home.[id number] NoteHNO ID: [id number] Author: GÓMEZ OLIVA LSW Service: Care Management Author Type: Battery Assembler Type: Care Mgt Progress Note Filed: 10/28/2023 12:15 Note Text: CARE MANAGEMENT DISCHARGE NOTE SERVICE DATE: October 28, 2023 SERVICE TIME: 12:14 PM Admission Date: 10/23/2023 LOS: 4 days Discharge Arrangement Discharge Arrangement: Home with Home Health Services Arranged Medical Services: Skilled Home Health Care Type: Intermediate, Physical Therapy, Occupational Therapy Caregiver Assessment Caregiver is ready, willing and able to meet the patient's needs as recommended by the inter-professional team: Yes Name of Caregiver: [facility] Transportation Arrangements Transportation Arrangements: Car Handoff Communication: Additional Information: Discharge Information Row Name ED to Hosp-Admission (Current) from 10/23/2023 in [facility] Patient will be d/c home with HHC from [facility] with a SOC date in 24 to 48 hours. Patient will transported home via family auto. SIGNATURE: JACK Posada PATIENT NAME: Nicole Lora DATE: October 28, 2023 TIME: 12:14 PM CONTACT #: [phone] History of Past illness Narrative* Problem Noted Date Diagnosed Date Resolved Date Acute on chronic respiratory failure with hypoxemia 10/28/2023 Last Assessment & Plan: See fluid overload documented as of this encounter (statuses as of 10/31/2023) [facility]03-09-2024 History of Past illness Narrative* Problem Noted Date Diagnosed Date Resolved Date Acute on chronic respiratory failure with hypoxemia 10/28/2023 Last Assessment & Plan: See fluid overload documented as of this encounter (statuses as of 11/22/2023) [facility]03-09-2024 History of Past illness Narrative* Problem Noted Date Diagnosed Date Resolved Date Acute on chronic respiratory failure with hypoxemia 10/28/2023 Last Assessment & Plan: See fluid overload documented as of this encounter (statuses as of 11/29/2023) [facility]03-09-2024 NoteHNO ID: [id number] Author: NAUN COUCH MD Service: Nephrology Author Type: Physician Type: Progress Notes Filed: 10/28/2023 08:41 Note Text: NEPHROLOGY PROGRESS NOTE SERVICE DATE: October 28, 2023 SERVICE TIME: 8:37 AM SUBJECTIVE INTERVAL HPI: feeling better MEDICATIONS: Reviewed OBJECTIVE PHYSICAL EXAM: Blood pressure 115/58, pulse 64, temperature 36.7 ?C (98.1 ?F), temperature source Oral, resp. rate 18, height 180.3 cm (5' 11 ), weight (!) 141.2 kg (311 lb 4.8 oz), SpO2 93%. Intake/Output Summary (Last 24 hours) at 10/28/2023 0837 Last data filed at 10/27/20232019 Gross per 24 hour Intake -- Output 2500 ml Net -2500 ml Chest: Clear to auscultation bilaterally. Heart: RRR, normal S1 and S2. No murmurs, galop or rubs. Abdomen: Soft lax, no tenderness or rebound tenderness, no hepatosplenomegaly, BS +. Lower limbs: +1 edema, distal pulses were palpable. LEATHER CRAFTSMAN: Conscious, Alert AND Orientedx3, fluent speech, intact concentration, no focal motor deficit is seen. DATA: Diagnostic tests reviewed for today's visit: CBC, Coags, BMP, Mg, Phos Recent Labs 10/28/23 0442 10/27/23 0518 10/26/23 0601 WBC 5.94 5.87 6.49 HB 12.3* 12.0* 11.6* HCT 41.3 39.9 38.8* PLT 250 222 247 NA 140 144 146* K 4.0 4.1 4.3 CHLOR 97 100 101 CO2 35* 35* 30 BUN 39* 40* 48* CREAT 1.72* 1.62* 1.84* GLUC 152* 145* 189* CA 9.1 9.1 9.1 MG 2.0 1.9 2.1 P 4.6 4.1 3.9 Liver Function, Amylase, AND Lipase Recent Labs 10/28/23 0442 10/27/23 0518 10/26/23 0601 TPROT -- 6.3 -- ALB 3.3* 3.3* 3.3* ALT -- 11 -- AST -- 11* -- ALKPHOS -- 88 -- TBILI -- 0.6 -- ASSESSMENT/PLAN Mr. Lora is a 63 year old male with a past medical history of CKD III with baseline Cr up ~ 1.5, chronic respiratory failure on 4L home O2 since 05/2023, morbid obesity, insulin dependent diabetes, and left forefoot amputation admitted from home who presented to [facility] with complaints of worsening shortness of breath, bilateral lower extremity edema and ~ 10lb weight gain in the last few weeks. Patient reports multiple hospital admissions in 2023 at [facility] in [place] for fluid overload. He states he usually feels better after being diuresed with IV Lasix but fluid builds up again . He reports drinking approximately 1/2 gallon of water per day. He states he is complaint with home dose of Torsemide 40 mg daily. In the ED, imaging significant for possible mild pulmonary congestion and patchy linear nodular opacity near left lung base. Initial labs significant for Cr 2.0/eGFR 37, BUN 60, glu 138, pro-BNP1,124, and trop [id number]. Nephrology consulted for management of AMY and fluid volume overload. -AMY on CKD stage III prerenal most likely related to cardiorenal pathology Protein/cr ratio 1.07, Renal US no hydronephrosis, chronic indwelling elliott in place Given IV Lasix and tolerating well, Maintain fluid restriction of 1500cc/day renal function stable, possibly new baseline Cr of ~1.6-1.8, will trend -Acute on chronic respiratory failure in the setting of fluid overload and morbid obesity Acute on chronic heart failure Only requiring baseline oxygen 4L now Echo 55% with normal diastolic heart function, no valvular abnormalities, diuresis with IV Lasix up to 40 mg TID More stable, feeling better Change to oral Torsemide (at 40 mg daily) -> 60 mg BID Add Jardiace at 10 mg daily - trending alkalosis Given diamox -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 Service: ? Author Type: ? Type: Progress Notes Filed: 10/28/2023 03:39 Note Text: Epic Scheduled Downtime: 10/28/2023 1:00:00 AM to 10/28/2023 3:24:00 [facility]03-08-2024 NoteHNO ID: [id number] Author: GÓMEZ OLIVA LSW Service: Care Management Author Type: Battery Assembler Type: Care Mgt Progress Note Filed: 10/27/2023 13:20 Note Text: CARE MANAGEMENT PROGRESS NOTE SERVICE DATE: 10/27/2023 SERVICE TIME: 1:17 PM LOS: 3 days Needs Prior to Discharge: To Be Determined Consults: - Pulmonology - Cardiology Medical Needs: - IV lasix Transportation: - Family D/C Disposition: Once cleared by consults and attending physician, patient will be d/c back home. Patient is active with [facility], [facility] for PT/OT/SN provided to agency. Plan for patient's daughter or niece to transport. Please contact this SW over the weekend for d/c planning as needed. SIGNATURE: JACK Posada PATIENT NAME: Nicole Lora DATE: October 27, 2023 TIME: 1:17 PM PAGER/CONTACT #: [phone] NoteHNO ID: [id number] Author: TAY STEWART MD Service: General Internal Medicine Author Type: Physician Type: Progress Notes Filed: 10/27/2023 16:49 Note Text: PROGRESS NOTE - INTERNAL MEDICINE PATIENT NAME: Nicole Lora SERVICE DATE: 10/27/2023 ADMITTING PHYSICIAN: Tay Stewart MD -ASSESSMENT AND PLAN: Principal Problem: Fluid overload (POA: Yes) Acute on chronic congestive heart failure (HCC) (POA: Unknown) Acute pulmonary edema (HCC) (POA: Unknown) Assessment AND Plan: Continue IV diuresis, elliott in place for accurate I/O Active Problems: Type 2 diabetes mellitus with diabetic polyneuropathy, with long-term current use of insulin (HCC) (POA: Yes) Assessment AND Plan: Insulin glargine and SS ordered Stage 3b chronic kidney disease (HCC) (POA: Yes) Assessment AND Plan: Nephrology following Primary hypertension (POA: Yes) Assessment AND Plan: BP stable Acute on chronic respiratory failure with hypoxemia (HCC) (POA: Yes) Assessment AND Plan: Bipap HS Acute on chronic heart failure with preserved ejection fraction (HCC) (POA: Unknown) Systolic congestive heart failure (HCC) (POA: Unknown) Assessment AND Plan: Fluid restriction -INTERVAL HPI: Continue IV diuresis, added diamox OBJECTIVE PHYSICAL EXAM Patient Vitals for the past 24 hrs: BP Temp Temp src Pulse Resp SpO2 10/27/23 1108 140/64 36.8 ?C (98.2 ?F) Oral 72 18 93 % 10/27/23 0830 -- -- -- 89 18 98 % 10/27/23 0710 138/57 36.6 ?C (97.9 ?F) Oral 69 16 95 % 10/27/23 0316 -- -- -- 64 17 95 % 10/27/23 0020 121/61 36.3 ?C (97.3 ?F) Axillary 67 20 95 % 10/26/23 2337 -- -- -- 67 18 96 % 10/26/23 2208 -- -- -- 70 22 90 % 10/26/235 -- -- -- 74 19 95 % 10/26/23 1956 139/62 37.1 ?C (98.8 ?F) Oral 75 18 96 % 10/26/23 1804 144/62 36.6 ?C (97.8 ?F) Oral 73 18 96 % 10/26/23 1419 117/59 36.8 ?C (98.2 ?F) Oral 72 20 91 % LUNGS: clear bilaterally . CARDIAC: normal S1 and S2; no rubs, murmurs, or gallops ABDOMEN: Abdomen soft, non-tender. BS normal. No masses or organomegaly. Obese EXTREMETIES: Extremities normal. No deformities, NEURO: No apparent deficit COMPLETE REVIEW OF SYSTEMS: RESPIRATORY: Negative for cough, or shortness of breath. CARDIOVASCULAR: Negative for chest pain GI: Negative for abdominal discomfort, blood in stools or black stools : No history of dysuria, frequency or incontinence. Urethral discomfort from elliott catheter. MUSCULOSKELETAL: Negative for joint pain or swelling, back pain or muscle pain. NEURO: No history of headaches, syncope, paralysis, seizures or tremors All other systems are negative unless mentioned in Interval HPI Current Facility-Administered Medications Medication Dose Route Frequency atorvastatin 40 mg tab(s) (LIPITOR) 40 mg ORAL AT BEDTIME aspirin 81 mg chewable tab(s) 81 mg ORAL DAILY insulin lispro 15 Units injection (rapid acting) (ADMElog) 15 Units SUBCUTANEOUS w MEALS gabapentin 600 mg tab(s) (NEURONTIN) 600 mg ORAL TID guaiFENesin 1,200 mg ER tab(s) (MUCINEX) 1,200 mg ORAL q 12 H rOPINIRole 2 mg tab(s) (REQUIP) 2 mg ORAL AT BEDTIME tamsulosin 0.4 mg cap(s) (FLOMAX) 0.4 mg ORAL AT BEDTIME melatonin 9 mg tab(s) 9 mg ORAL AT BEDTIME aluminum-magnesium hydroxide-simethicone 200-200-20 mg/5 mL 30 mL 30 mL ORAL q 6 H PRN ondansetron (PF) 4 mg injection (ZOFRAN) 4 mg INTRAVENOUS q 6 H PRN senna-docusate 8.6-50 mg 1 tablet (SENNA-S) 1 tablet ORAL BID PRN polyethylene glycol 3350 17 g packet 17 g ORAL DAILY PRN acetaminophen 500-1,000 mg tab(s) (TYLENOL) 500-1,000 mg ORAL q 6 H PRN NaCl 0.9% iv flush bag 20 mL INTRAVENOUS PRN dextrose 40 % 15 g 15 g ORAL PRN Or glucagon 1 mg injection 1 mg INTRAMUSCULAR PRN Or dextrose 10% iv bolus 12.5 g INTRAVENOUS PRN mometasone-formoterol 100-5 mcg/actuation 2 Puff inhaler (DULERA) 2 Puff INHALATION BID furosemide 40 mg injection (LASIX) 40 mg INTRAVENOUS q 8 H insulin glargine 10 Units pen (long acting) 10 Units SUBCUTANEOUS BID heparin 5,000 Units injection 5,000 Units SUBCUTANEOUS q 12 H ipratropium-albuterol 3 mL nebulizer solution (DUONEB) 3 mL INHALATION q 4 H PRN hydrALAZINE 10 mg tab(s) (APRESOLINE) 10 mg ORAL q 12 H cephALEXin 500 mg cap(s) (KEFLEX) 500 mg ORAL q 6 H insulin lispro injection (rapid acting) (ADMElog) SUBCUTANEOUS w MEALS AND HS acetaZOLAMIDE 500 mg tab(s) (DIAMOX) 500 mg ORAL BID lidocaine urojet 2 % 6 mL topical gel (GLYDO) 6 mL MUCOUS MEMBRANE TID PRN DATA: Diagnostic tests reviewed for today's visit: @IMAGES@ CBC: Recent Labs 10/27/23517 WBC 5.87 RBC 4.49 HB 12.0* HCT 39.9 PLT 222 MCV 88.9 MCH 26.7 MPV 8.7* Coags: No results for input(s): PT , INR , APTT in the last 24 hours. BMP: Recent Labs 10/27/23517 NA 144 K 4.1 CHLOR 100 CO2 35* BUN 40* CREAT 1.62* GLUC 145* CMP: Recent Labs 10/27/23517 NA 144 K 4.1 CHLOR 100 CO2 35* BUN 40* CREAT 1.62* GLUC 145* TPROT 6.3 CA 9.1 MG (more content not included)...[id number] NoteHNO ID: [id number] Author: JUSTINO MARTÍNEZ RN Service: Nursing Author Type: Registered Nurse Type: Nursing Progress Note Filed: 10/27/2023 03:59 Note Text: Patient's daughter called. She would like the team to call her with updates. [facility] [id number] NoteHNO ID: [id number] Author: DELLA MADDOX RN Service: Care Management Author Type: Registered Nurse Type: Care Mgt Progress Note Filed: 10/26/2023 18:23 Note Text: CARE MANAGEMENT PROGRESS NOTE SERVICE DATE: 10/26/2023 SERVICE TIME: 6:16 PM LOS: 2 days Post-Acute Discharge Planning Patient Goal(s): General wellness Hayden of Choice Explained: Hayden of Choice Given: Yes Level of Care Discussed: Home Care Needs Prior to Discharge: Needs Prior to Discharge: To Be Determined Post-Acute Discharge Plan: CM met with pt at bedside to confirm discharge planning. Pt states he lives in independent living apartment that is for retired people or ones with a disability-not assisted living. Plans to return home there. Pt says that he does have therapy and a nursing coming to his home but does not know which agency. [facility]looks like pt is active with [facility] [phone] per [facility]-referral sent to confirm/resume. May NEED NEW F2F HOME CARE ORDER SN,PT,OT to resume. Pt says that he has oxygen at home that he only uses at night, has a home concentrator, states his doctor Dr. Brooke is working on getting him portable oxygen, pt unsure of which oxygen company he uses. Pt states his daughter or niece will pick him up at discharge time, CM suggested family bring oxygen tank with them for the ride home, pt states he will not need oxygen for the ride home. SIGNATURE: Della Maddox RN PATIENT NAME: Nicole Lora DATE: October 26, 2023 TIME: 6:15 PM PAGER/CONTACT #: [phone] NoteHNO ID: [id number] Author: VALERIE LINDSEY APRN.CNP Service: General Internal Medicine Author Type: Nurse Practitioner Type: Plan of Care Filed: 10/26/2023 15:36 Note Text: INTERNAL MEDICINE PLAN OF CARE SERVICE DATE: 10/26/2023 SERVICE TIME: 10 am ADMITTING PHYSICIAN: Tay Stewart MD Subjective CHIEF COMPLAINT: Fluid Overload NIGHT AND WEEKEND COVERAGE: [place] COVERAGE: [place] PAGER [phone] INTERVAL HISTORY OF PRESENT ILLNESS: Pt seen and examined on [facility] no apparent distress oob in chair. On 4 was moved from the MICU to [facility] yesterday evening . CONSULTANTS: Cardiology, nephrology , Pulmonary consulted today HOSPITAL COURSE: This is a 63 year old male with a PMHx of CKD 3b, chronic respiratory failure, morbid obesity, insulin dependent diabetes, left forefoot amputation admitted from home, lives in [place] for fluid overload. The patient states he's had 4 hospital admissions so far this year for the same and he has had medications adjusted; states he gets better while admitted receiving IV lasix and then gains weight and develops worsening edema when he returns home. He's gained about 10 lbs since recent admission. He states he drinks about a half a gallon of water a day. He does not follow any fluid restriction or salt restriction. He admits to compliance with his medications, but is not able to name his medications. He denies worsening shortness of breath, wears 4 L NC at baseline. Endorses orthopnea, sleeps upright, this is his recent baseline. He endorses dyspnea on exertion, has been doing okay ambulating around his apartment however. He denies cough or wheezing, fever or chills. He endorses chronic worsening low back pain bilaterally and right groin pain but denies acute leg weakness, new numbness tingling, saddle anesthesia, bowel incontinence or constipation. In ED SpO2 94% time 6 L, BP 148/61, pulse 73, temp 97.7 Fahrenheit, respiratory rate 20 Creatinine 2.0, glucose 138, BNP 1124, MARINA 172-> 167, CBC unremarkable, chest x-ray 1. Patchy linear nodular opacity near the left lung base, which is of uncertain chronicity. Possible considerations include an area of infiltrate, atelectasis or scarring. Recommend short interval follow-up radiograph to ensure clearing. 2. Findings suggestive of pulmonary venous hypertension and possible mild pulmonary edema. DVT ultrasound bilateral lower extremity EGATIVE STUDY FOR PROXIMAL DVT IN THE LEFT AND RIGHT LOWER EXTREMITIES. NONDIAGNOSTIC STUDY FOR CALF DVT IN THE LEFT AND RIGHT LOWER EXTREMITIES. NEGATIVE STUDY FOR SUPERFICIAL THROMBOPHLEBITIS IN THE IMAGED SEGMENTS OF THE LEFT AND RIGHT LOWER EXTREMITIES. EKG normal sinus rhythm, rate 77, no ischemic changes. He was given 40 mg IV Lasix in ED Spoke with ED attending and asked her to speak with cardiology regarding the elevated troponins. Cardiology consulted . Patient transferred from ED to [facility] where he has RR 2/2 acute hypoxic respiratory failure was transferred to MICU for BIPAP . ABG revealed respiratory acidosis with pCO2 70. Patient does not have a hx of TC and denies BiPAP/CPAP use at home, however does have hx of needing bipap in hospital. Continue Dulera inhalation BID and PRN Duonebs Pulmonary consult placed today for Dr Donahue as an outpatient will need sleep study and follow up PHYSICAL EXAM: Physical Exam Vitals and nursing note reviewed. Constitutional: Appearance: Normal appearance. He is normal weight. HENT: Head: Normocephalic. Mouth/Throat: Mouth: Mucous membranes are moist. Pharynx: Oropharynx is clear. Eyes: Extraocular Movements: Extraocular movements intact. Conjunctiva/sclera: Conjunctivae normal. Pupils: Pupils are equal, round, and reactive to light. Cardiovascular: Rate and Rhythm: Normal rate and regular rhythm. Pulmonary: Effort: Pulmonary effort is normal. Comments: Diminished throughout Abdominal: General: Bowel sounds are normal. There is distension. Palpations: Abdomen is soft. Musculoskeletal: Right lower leg: Edema present. Left lower leg: Edema present. Comments: left foot TMA , wound on forefoot Skin: General: Skin is warm. Capillary Refill: Capillary refill takes less than 2 seconds. DP and PT assessed Neurological: General: No focal deficit present. Mental Status: He is alert and oriented to person, place, and time. Mental status is at baseline. Psychiatric: Mood and Affect: Mood normal. Behavior: Behavior normal. BP 117/59 Pulse 72 Temp 36.8 ?C (98.2 ?F) (Oral) Resp 20 Ht 180.3 cm (5' 11 ) Wt (!) 141.2 kg (311 lb 4.8 oz) SpO2 91% BMI 43.42 kg/m? Body mass index is 43.42 kg/m?. Lines, Drains, and Airways Line Duration Peripheral 10/23/23 1609 [facility] Short Right Antecubital 20 Gauge 2 days Drain Duration Indwelling Urinary Catheter External Facility Coude 18 Fr -- days ASSESSMENT/PLAN: * Fluid overload- (present (more content not included)...[facility] 10-26-2023 NoteHNO ID: [id number] Author: TAY STEWART MD Service: General Internal Medicine Author Type: Physician Type: Progress Notes Filed: 10/26/2023 21:13 Note Text: PROGRESS NOTE - INTERNAL MEDICINE PATIENT NAME: Nicole Lora SERVICE DATE: 10/26/2023 ADMITTING PHYSICIAN: Tay Stewart MD -ASSESSMENT AND PLAN: Principal Problem: Fluid overload (POA: Yes) Assessment AND Plan: Edema in lower extremities , better with the SOB Continue diuresis Active Problems: Type 2 diabetes mellitus with diabetic polyneuropathy, with long-term current use of insulin (HCC) (POA: Yes) Assessment AND Plan: no chnage Stage 3b chronic kidney disease (HCC) (POA: Yes) Assessment AND Plan: Primary hypertension (POA: Yes) Assessment AND Plan: Acute on chronic respiratory failure with hypoxemia (HCC) (POA: Yes) OBJECTIVE PHYSICAL EXAM Patient Vitals for the past 24 hrs: BP Temp Temp src Pulse Resp SpO2 Weight 10/26/232024 -- -- -- 74 19 95 % -- 10/26/23 1956 139/62 37.1 ?C (98.8 ?F) Oral 75 18 96 % -- 10/26/23 1804 144/62 36.6 ?C (97.8 ?F) Oral 73 18 96 % -- 10/26/23 1419 117/59 36.8 ?C (98.2 ?F) Oral 72 20 91 % -- 10/26/23 1107 140/57 36.1 ?C (97 ?F) Temporal 71 20 96 % -- 10/26/23 0823 -- -- -- -- -- -- (!) 141.2 kg (311 lb 4.8 oz) 10/26/23 0737 -- -- -- 70 18 96 % -- 10/26/23 0701 139/64 36.7 ?C (98.1 ?F) Oral 68 20 95 % -- 10/26/23 0520 -- -- -- 67 19 91 % -- 10/26/23 0444 123/60 36.5 ?C (97.7 ?F) Oral 61 16 95 % -- 10/26/23 0025 -- -- -- 77 20 96 % -- 10/26/23 0023 142/61 36.7 ?C (98.1 ?F) Axillary 75 16 94 % -- 10/25/232145 -- -- -- 73 23 92 % -- 10/25/232138 -- -- -- 70 18 90 % -- 10/25/234 141/60 36.6 ?C (97.9 ?F) Oral 73 16 91 % -- NECK: no jugulovenous distention, LUNGS: clear bilaterally . CARDIAC: normal S1 and S2; no rubs, murmurs, or gallops ABDOMEN: Abdomen soft, non-tender. BS normal. No masses or organomegaly. EXTREMETIES: +2 edema COMPLETE REVIEW OF SYSTEMS: RESPIRATORY: Negative for cough, or shortness of breath. CARDIOVASCULAR: Negative for chest pain GI: Negative for abdominal discomfort, blood in stools or black stools : No history of dysuria, frequency or incontinence MUSCULOSKELETAL: Negative for joint pain or swelling, back pain or muscle pain. NEURO: No history of headaches, syncope, paralysis, seizures or tremors All other systems are negative unless mentioned in Interval HPI Current Facility-Administered Medications Medication Dose Route Frequency atorvastatin 40 mg tab(s) (LIPITOR) 40 mg ORAL AT BEDTIME aspirin 81 mg chewable tab(s) 81 mg ORAL DAILY insulin lispro 15 Units injection (rapid acting) (ADMElog) 15 Units SUBCUTANEOUS w MEALS gabapentin 600 mg tab(s) (NEURONTIN) 600 mg ORAL TID guaiFENesin 1,200 mg ER tab(s) (MUCINEX) 1,200 mg ORAL q 12 H rOPINIRole 2 mg tab(s) (REQUIP) 2 mg ORAL AT BEDTIME tamsulosin 0.4 mg cap(s) (FLOMAX) 0.4 mg ORAL AT BEDTIME melatonin 9 mg tab(s) 9 mg ORAL AT BEDTIME aluminum-magnesium hydroxide-simethicone 200-200-20 mg/5 mL 30 mL 30 mL ORAL q 6 H PRN ondansetron (PF) 4 mg injection (ZOFRAN) 4 mg INTRAVENOUS q 6 H PRN senna-docusate 8.6-50 mg 1 tablet (SENNA-S) 1 tablet ORAL BID PRN polyethylene glycol 3350 17 g packet 17 g ORAL DAILY PRN acetaminophen 500-1,000 mg tab(s) (TYLENOL) 500-1,000 mg ORAL q 6 H PRN NaCl 0.9% iv flush bag 20 mL INTRAVENOUS PRN dextrose 40 % 15 g 15 g ORAL PRN Or glucagon 1 mg injection 1 mg INTRAMUSCULAR PRN Or dextrose 10% iv bolus 12.5 g INTRAVENOUS PRN mometasone-formoterol 100-5 mcg/actuation 2 Puff inhaler (DULERA) 2 Puff INHALATION BID furosemide 40 mg injection (LASIX) 40 mg INTRAVENOUS q 8 H insulin glargine 10 Units pen (long acting) 10 Units SUBCUTANEOUS BID heparin 5,000 Units injection 5,000 Units SUBCUTANEOUS q 12 H ipratropium-albuterol 3 mL nebulizer solution (DUONEB) 3 mL INHALATION q 4 H PRN hydrALAZINE 10 mg tab(s) (APRESOLINE) 10 mg ORAL q 12 H cephALEXin 500 mg cap(s) (KEFLEX) 500 mg ORAL q 6 H insulin lispro injection (rapid acting) (ADMElog) SUBCUTANEOUS w MEALS AND HS DATA: Diagnostic tests reviewed for today's visit: @IMAGES@ CBC: Recent Labs 10/26/23 06 WBC 6.49 RBC 4.30 HB 11.6* HCT 38.8* PLT 247 MCV 90.2 MCH 27.0 MPV 9.0 Coags: No results for input(s): PT , INR , APTT in the last 24 hours. BMP: Recent Labs 10/26/23600 NA 146* K 4.3 CHLOR 101 CO2 30 BUN 48* CREAT 1.84* GLUC 189* CMP: Recent Labs 10/26/23 06 NA 146* K 4.3 CHLOR 101 CO2 30 BUN 48* CREAT 1.84* GLUC 189* CA 9.1 MG 2.1 ANION 15 Cardiac Enzymes: No results for input(s): CK , MB , CKMB , TROPT in the last 24 hours. Liver Function, Amylase, Lipase: Recent Labs 10/26/23600 ALB 3.3* Plan of care discussed with patient and staff. I spent a total of 40 minutes on the date of the service which included preparing to see the patient, [id number] patient ca (more content not included)...[facility] 10-25-2023 NoteHNO ID: [id number] Author: NAUN COUCH MD Service: Nephrology Author Type: Physician Type: Progress Notes Filed: 10/25/2023 16:30 Note Text: NEPHROLOGY PROGRESS NOTE SERVICE DATE: October 25, 2023 SERVICE TIME: 4:27 PM SUBJECTIVE INTERVAL HPI: feeling better, required BiPAP overnight MEDICATIONS: Reviewed OBJECTIVE PHYSICAL EXAM: Blood pressure 128/76, pulse 70, temperature 36.7 ?C (98 ?F), temperature source Oral, resp. rate 16, height 180.3 cm (5' 11 ), weight (!) 145.6 kg (320 lb 15.8 oz), SpO2 93%. Intake/Output Summary (Last 24 hours) at 10/25/2023 1627 Last data filed at 10/25/2023 1600 Gross per 24 hour Intake 1070 ml Output 3075 ml Net -2005 ml Chest: few crackles to auscultation bilaterally. Heart: RRR, normal S1 and S2. No murmurs, galop or rubs. Abdomen: Soft lax, no tenderness or rebound tenderness, no hepatosplenomegaly, BS +. Lower limbs: +3 edema, distal pulses were palpable. LEATHER CRAFTSMAN: Conscious, Alert AND Orientedx3, fluent speech, intact concentration, no focal motor deficit is seen. DATA: Diagnostic tests reviewed for today's visit: CBC, Coags, BMP, Mg, Phos Recent Labs 10/25/23 0610/24/23 0906 10/24/23 0208 10/24/23 0207 10/23/23 1607 WBC 7.53 -- -- 7.15 7.09 HB 12.1* -- -- 12.4* 12.4* HCT 41.0 -- -- 41.0 40.6 PLT 235 -- -- 240 220 INR -- -- 1.0 -- -- APTT -- 31.1 28.0 -- -- NA 143 -- 142 -- 139 K 4.3 -- 4.2 -- 4.6 CHLOR 102 -- 101 -- 100 CO2 31* -- 30 -- 28 BUN 54* -- 58* -- 60* CREAT 1.89* -- 1.82* -- 2.00* GLUC 149* -- 229* -- 138* CA 9.1 -- 8.7 -- 8.6 MG 2.0 -- -- -- -- P 4.4 -- -- -- -- Liver Function, Amylase, AND Lipase Recent Labs 10/25/23 0627 10/24/23 2108 10/24/23 1639 10/24/23 0501 10/23/23 1607 TPROT -- -- -- -- 6.5 ALB 3.4* -- -- -- 3.5* ALT -- -- -- -- 19 AST -- -- -- -- 21 ALKPHOS -- -- -- -- 112 TBILI -- -- -- -- 0.4 LACT 0.9 0.9 1.4 < > -- < > = values in this interval not displayed. ASSESSMENT/PLAN Mr. Lora is a 63 year old male with a past medical history of CKD III with baseline Cr up ~ 1.5, chronic respiratory failure on 4L home O2 since 05/2023, morbid obesity, insulin dependent diabetes, and left forefoot amputation admitted from home who presented to [facility] with complaints of worsening shortness of breath, bilateral lower extremity edema and ~ 10lb weight gain in the last few weeks. Patient reports multiple hospital admissions in 2023 at [facility] in [place] for fluid overload. He states he usually feels better after being diuresed with IV Lasix but fluid builds up again . He reports drinking approximately 1/2 gallon of water per day. He states he is complaint with home dose of Torsemide 40 mg daily. In the ED, imaging significant for possible mild pulmonary congestion and patchy linear nodular opacity near left lung base. Initial labs significant for Cr 2.0/eGFR 37, BUN 60, glu 138, pro-BNP1,124, and trop [id number]. Nephrology consulted for management of AMY and fluid volume overload. 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 75 mg q12 hours -> decrease to 10 mg TID On Isordil 10 mg TID Continue to trend Plan of care discussed with: Provider, RN, Patient Naun Couch MD [facility] October 25, 2023 4:27 PM [phone] [id number] NoteHNO ID: [id number] Author: NERY MOTTA MD Service: Cardiovascular Medicine Author Type: Physician Type: Progress Notes Filed: 10/25/2023 17:13 Note Text: [facility] PROGRESS NOTE CONSULTING SERVICE: Cardiology: Consult Team PRIMARY SERVICE: Internal Medicine Subjective: -SOB Objective: Physical Exam 10/25/23 0900 10/25/23 1000 10/25/23 1100 10/25/23 1200 BP: 115/51 125/59 (!) 108/49 Pulse: 80 74 71 Resp: Temp: 36.9 ?C (98.4 ?F) TempSrc: Oral SpO2: 90% 92% 95% Weight: Height: Gen:Alert,no acute distress HEENT: normocephalic, atraumatic, no scleral ictures, no rinorrhea, normal hearing, no obvious goiter CV: S1/S2+, regular rate and rhythm, no murmurs/rubs/gallops Respiratory: Reduced breath sounds bilateraly, mild basal crackles Abdomen: soft,nontender,nondistended MSK: 3/6 edema bilaterally, mild tender Neuro/psych:cooperative, appropriate, no focal deficits Skin: no obvious large ecchymosis Data including imaging, ECG (personally reviewed), echocardiogram (personally reviewed), laboratory work, other with pertinent ones below: Recent Labs 10/25/23 0627 10/24/23 0208 10/24/23 0207 10/23/23 1607 WBC 7.53 -- 7.15 7.09 HB 12.1* -- 12.4* 12.4* HCT 41.0 -- 41.0 40.6 PLT 235 -- 240 220 NA 143 142 -- 139 K 4.3 4.2 -- 4.6 BUN 54* 58* -- 60* CREAT 1.89* 1.82* -- 2.00* GLUC 149* 229* -- 138* MARINA High Sensitivity 153 10/24/2023 MARINA High Sensitivity 152 10/24/2023 MARINA High Sensitivity 167 10/23/2023 - ASSESSMENT / RECOMMENDATIONS / PLAN: 63 year old male with PMHx significant for CKD stage III, chronic respiratory failure (wears 4L O2 at baseline), TC-Asthma, obesity, DM type 2 insulin dependent and left forefoot amputation with recurrent admission in different hospital for heart failure and respiratory failure. He was transfer to MICU overnight for hypoxemia. He is still fluid . Impression: Heart failure/Respiratory failure Recommendations: - volume overload, Continue diuresis - echo ordered - strict I/O, daily weights - elevated troponin likely in the setting of demand ischemia . Echo peniding. - aspirin/statin/hydralazine 75 mg BID SIGNATURE: Nery Motta MD DATE of SERVICE: October 25, 2023[id number] NoteHNO ID: [id number] Author: MAE KENNY MD Service: Critical Care Author Type: Physician Type: Progress Notes Filed: 10/25/2023 12:34 Note Text: MICU PROGRESS NOTE WITH COORD CARE SERVICE DATE: 10/25/2023 Admission Date: 10/23/2023 Day #: 1 in the MICU. This is a 63 year old male with PMHx significant for CKD stage III, chronic respiratory failure (wears 4L O2 at baseline), obesity, DM type 2, and left forefoot amputation who initially presented on 10/23 for worsening LE edema, SOB, and a weight gain of about 10 lbs over the last week likely in setting of CHF exacerbation. Patient has been being treated with diuresis for volume overload. Earlier in PM, floor RN notified general medicine of patient's ABG results. ABG revealed respiratory acidosis with pCO2 70. Patient does not have a hx of TC and denies BiPAP/CPAP use at home, however does have hx of needing bipap in hospital. He does wear O2 at baseline. On arrival to unit patient is awake, AANDOx4, and HDS. Noted to be in no acute distress, asymptomatic, and saturating well on non-rebreather. He denies any current SOB or breathing difficulties. Does state he feels sleepy but attributes this to being awake in the middle of the night. 10/24: No SOB. Able to tolerate BiPAP overnight. Complaining of soreness in right upper back. Assessment/ Plan #Acute encephalopathy likely metabolic in setting of elevated CO2 Patient is awake, AANDOx4 Plan: - BiPAP at HS and PRN - Delirium precautions - Avoid sedative agents as able #Acute on chronic hypoxemic and hypercapnic respiratory failure likely in setting of OHS/TC/HFpEF ABG revealing chronic respiratory acidosis with pCO2 70 Patient does not have a hx of TC and denies BiPAP/CPAP use at home Does have hx of needing bipap in hospital Wears O2 at baseline Admitted to ICU for initiation of BiPAP 3/4 CXR suggestive of pulmonary venous hypertension and possible mild pulmonary edema Plan: - Continue BiPAP during night - Maintain SpO2 saturation > 89% - Diuresis for volume removal - Continue Dulera inhalation BID and PRN Duonebs - Pulmonary consult for sleep study and follow up as out patient -Stable for RNF #CHF exacerbation #HFpEF #HTN Recent hospitalization for same issue, bilateral lower extremity edema, SOB Dry weight - around 300-310 lb Current weight- 320 Net negative so far 4315 mL Plan: - Continue diuresis - Continue ASA, Hydralazine, statin - F/u ECHO - Cardiology consulted, appreciate recs #CKD stage 3 Most likely of cardio renal pathology Creatinine Date Value Ref Range Status 10/25/2023 1.89 (H) 0.73 - 1.22 mg/dL Final 10/24/2023 1.82 (H) 0.73 - 1.22 mg/dL Final 10/23/2023 2.00 (H) 0.73 - 1.22 mg/dL Final Plan: - Trend BMP, mag, phos - Replenish lytes as needed - Diuresis as above - Strict IANDO's - IP - 1.5 L/ 24 hours - Avoid nephrotoxic agents as able - Nephrology following, appreciate recs #Infected ? Mole in right upper back Induration noted Not draining Plan -oral keflex for 5-7 days #DM type 2 A1C 10 Recent Labs 10/25/23 0744 10/24/23 2047 10/24/23 1704 10/24/23 1227 10/24/23 0852 10/24/23 0135 PCGLUCOSE 149* 91 193* 210* 233* 211* Plan: - Continue Insulin glargine and SS2 - Discontinue metformin due to worsening renal function #Obesity #Restless leg syndrome Plan: - Continue Requip and gabapentin - PT/OT Plan Discussed with Dr Kenny and RN OBJECTIVE: BP (!) 108/49 Pulse 71 Temp 36.8 ?C (98.2 ?F) (Oral) Resp 14 Ht 180.3 cm (5' 11 ) Wt (!) 145.6 kg (320 lb 15.8 oz) SpO2 95% BMI 44.77 kg/m? Vital signs reviewed. Relevant comments- stable NET FLUID BALANCE Intake/Output Summary (Last 24 hours) at 10/25/2023 1159 Last data filed at 10/25/2023 0800 Gross per 24 hour Intake 1130 ml Output 2950 ml Net -1820 ml MEDICATIONS Current Facility-Administered Medications Medication Dose Route Frequency atorvastatin 40 mg tab(s) (LIPITOR) 40 mg ORAL AT BEDTIME aspirin 81 mg chewable tab(s) 81 mg ORAL DAILY insulin lispro 15 Units injection (rapid acting) (ADMElog) 15 Units SUBCUTANEOUS w MEALS gabapentin 600 mg tab(s) (NEURONTIN) 600 mg ORAL TID guaiFENesin 1,200 mg ER tab(s) (MUCINEX) 1,200 mg ORAL q 12 H rOPINIRole 2 mg tab(s) (REQUIP) 2 mg ORAL AT BEDTIME tamsulosin 0.4 mg cap(s) (FLOMAX) 0.4 mg ORAL AT BEDTIME melatonin 9 mg tab(s) 9 mg ORAL AT BEDTIME aluminum-magnesium hydroxide-simethicone 200-200-20 mg/5 mL 30 mL 30 mL ORAL q 6 H PRN ondansetron (PF) 4 mg injection (ZOFRAN) 4 mg INTRAVENOUS q 6 H PRN senna-docusate 8.6-50 mg 1 tablet (SENNA-S) 1 tablet ORAL BID PRN polyethylene glycol 3350 17 g packet 17 g ORAL DAILY PRN acetaminophen 500-1,000 mg tab(s) (TYLENOL) 500-1,000 mg ORAL q 6 H PRN sodium chloride 0.9 % (flush) 2-10 mL (BD POSIFLUSH) 2-10 mL INTRAVENOUS DIRECTED PRN And perflutren lipid microspheres 1.1 mg/mL 1.3 mL in (more content not included)... [facility] [id number] NoteHNO ID: [id number] Author: SRUTHI EGAN PA-C Service: General Internal Medicine Author Type: Physician Relocation Manager Type: Plan of Care Filed: 10/24/2023 23:16 Note Text: Brief Plan of Care Paged by RN regarding ABG results. Respiratory acidosis with pCO2 70. VBG this am with respiratory acidosis with pCO2 of 66. Patient seen and chart reviewed. Patient here for fluid overload. Received 40 mg IV lasix at 043, 1445, 1604 today. Next dose 2100. CXR with Patchy linear nodular opacity near the left lung base, which is of uncertain chronicity. Possible considerations include an area of infiltrate, atelectasis or scarring. Recommend short interval follow-up radiograph to ensure clearing. Findings suggestive of pulmonary venous hypertension and possible mild pulmonary edema. VQ scan today with low probability of PE. Heparin gtt stopped. Wears oxygen at night at home. Denies cpap/bipap use. Hx of needing bipap in hospital. Denies SOB, fatigue, or sleepiness. Per RN, appears similar from this am. GENERAL: Alert, no distress, cooperative, 4.0 L O2 NC (saturating 91%) LUNGS: Lungs clear to auscultation. No wheezing, rhonchi or rales. No conversational dyspnea. No respiratory distress. CARDIAC: Normal S1 and S2; no rubs, murmurs, or gallops EXTREMITIES: BLE edema NEURO: Alert, responding appropriately to questions Plan - Discussed case with ICU on-call Dr. Alfred who rec repeat ABG prior to bed with net change of 4 pCO2 compared to this am, patient in no distress, asymptomatic, saturating well on 4.0L. - ABG ordered for 2099 Sruthi Egan PA-C 10/24/2023 6:39 PM Addendum: 2312: Called ICU on-call doc at 9748 and paged at 2428. Murray back at 2110 with recs to transfer to ICU for bipap initiation. Plan discussed with RN. Patient currently asleep in chair. 90% on 5L O2 NC. Transfer order placed. Sruthi Egan PA-C 10/24/2023 11:15 [facility]03-05-2024 NoteHNO ID: [id number] Author: ELKE ORO RT(R) Service: ? Author Type: Lining Finisher Type: Progress Notes Filed: 10/24/2023 14:26 Note Text: RADIOLOGY SERVICE PROGRESS NOTE SERVICE DATE: 10/24/2023 SERVICE TIME: 2:25 PM PATIENT IDENTITY VERIFICATION COMPLETED USING TWO (2) STANDARD IDENTIFIERS: Name and Date of confirmed by patient verbally FALL SCREENING: Has the patient had 2 falls in the last year or 1 fall with injury or currently using an Ambulatory Assistive Device (Walker, Cane, Wheelchair, Crutches, etc.)? Inpatient: Screened on floor PATIENT GENDER DATA: .male ALLERGIES: Reviewed and unchanged MEDICATIONS REVIEWED: Not applicable PATIENT RELEVANT IMPLANT DATA REVIEWED: Not Applicable PATIENT PRESENTS WITH AN IMPLANTABLE OR ATTACHED GEOPHYSICAL LABORATORY DIRECTOR: No CREATININE: Creatinine Date Value Ref Range Status 10/24/2023 1.82 (H) 0.73 - 1.22 mg/dL Final 10/23/2023 2.00 (H) 0.73 - 1.22 mg/dL Final Estimated Glomerular Filtration Rate Date Value Ref Range Status 10/24/2023 41 (L) >=60 mL/min/1.73m? Final Comment: Estimated Glomerular Filtration Rate (eGFR) is calculated using the 2020 CKD-EPI creatinine equation. This equation utilizes serum creatinine, sex, and age as parameters. The creatinine assay has traceable calibration to isotope dilution-mass spectrometry. Refer to KDIGO guidelines for clinical interpretation. In patients with unstable renal function, e.g. those with acute kidney injury, the eGFR may not accurately reflect actual GFR. P.O.C.T. RESULTS: N/A October 24, [address] PERFORMED: No IV SITE: Inpatient - refer to LDA documentation POST EXAM PIV STATUS: Inpatient see LDA documentation PROCEDURE TYPE: VQ Scan: 0.8 mCi of Tc99m DTPA was inhaled. 5.6 mCi of Tc99m MAA was administered IV. ADMINISTRATION TIME: 1339 PATIENT DISCHARGED TO: Patient taken to IP transport area for return to RNF/ICU/ED. A Diagnostic radioactive procedure has taken place, with no further precautions necessary other than routine body substance precautions. More information regarding radiation safety can be found using this link: [email or web address] SIGNATURE: RT Karen(R) PATIENT NAME: Nicole Lora DATE: October 24, 2023 TIME: 2:25 PM PAGER/CONTACT #:Derek [id number] Hospital Discharge instructions Patient Education 10/18/2023 09:14:11 Acute Urinary Retention, Male Acute Urinary Retention, Male Acute urinary retention is a condition in which a person is unable to pass urine or can only pass alittle urine. This condition can happen suddenly and last for a short time. If left untreated, it can become long-term (chronic) and result in kidney damage or other serious complications. What are the causes? This condition may be caused by: Obstruction or narrowing of the tube that drains the bladder (urethra). This may be caused by surgery, problems with nearby organs, or injury to the bladder or urethra. Problems with the nerves in the bladder. Tumors in the area of the pelvis, bladder, or urethra. Certain medicines. Bladder or urinary tract infection. Constipation. What increases the risk? This condition is more likely to develop in older men. As men age, their prostate may become largerand may start to press or squeeze on the bladder or the urethra. Other chronic health conditions can increase the risk of acute urinary retention. These include: Diseases such as multiple sclerosis. Spinal cord injuries. Diabetes. Degenerative cognitive conditions, such as delirium or dementia. Psychological conditions. A man may hold his urine due to trauma or because he does not want to usethe bathroom. What are the signs or symptoms? Symptoms of this condition include: Trouble urinating. Pain in the lower abdomen. How is this diagnosed? This condition is diagnosed based on a physical exam and your medical history. You may also have other tests, including: An ultrasound of the bladder or kidneys or both. Blood tests. A urine analysis. Additional tests may be needed, such as a CT scan, MRI, and kidney or bladder function tests. How is this treated? Treatment for this condition may include: Medicines. Placing a thin, sterile tube (catheter) into the bladder to drain urine out of the body. This is called an indwelling urinary catheter. After it is inserted, the catheter is held in place with a small balloon that is filled with sterile water. Urine drains from the catheter into a collection bag outside of the body. Behavioral therapy. Treatment for other conditions. If needed, you may be treated in the hospital for kidney function problems or to manage other complications. Follow these instructions at home: Medicines Take qlzu-cho-iwvtdam and prescription medicines only as told by your health care provider. Avoid certain medicines, such as decongestants, antihistamines, and some prescription medicines. Do not take any medicine unless your health care provider approves. If you were prescribed an antibiotic medicine, take it as told by your health care provider. Do notstop using the antibiotic even if you start to feel better. General instructions Do not use any products that contain nicotine or tobacco. These products include cigarettes, chewing tobacco, and vaping devices, such as e-cigarettes. If you need help quitting, ask your health careprovider. Drink enough fluid to keep your urine pale yellow. If you have an indwelling urinary catheter, follow the instructions from your health care provider. Monitor any changes in your symptoms. Tell your health care provider about any changes. If instructed, monitor your blood pressure at home. Report changes as told by your health care provider. Keep all follow-up visits. This is important. Contact a health care provider if: You have uncomfortable bladder contractions that you cannot control (spasms). You leak urine with the spasms. Get help right away if: You have chills or a fever. You have blood in your urine. You have a catheter and the following happens: ?Your catheter stops draining urine. ?Your catheter falls out. Summary Acute urinary retention is a condition in which a person is unable to pass urine or can only pass alittle urine. If left untreated, this condition can result in kidney damage or other serious complications. An enlarged prostate may cause this condition. As men age, their prostate gland may become larger and may press or squeeze on the bladder or the urethra. Treatment for this condition may include medicines and placement of an indwelling urinary catheter. Monitor any changes in your symptoms. Tell your health care provider about any changes. This information is not intended to replace advice given to you by your health care provider. Make sure you discuss any questions you have with your health care provider. Document Revised: 04/28/2021 Document Reviewed: 04/28/2021 [employer] Patient Education 2022 [employer]. Follow Up Care 09/19/2023 09:41:35 With:MARTHA LYMAN, Taz Abraham, URL Address: [address] [place] [id number] When: Unknown [facility] 02-25-2024 Evaluation + Plan noteExtracted from: Title:ED Note Author:Mone Martinez DO Date: Urinary catheter complicatio n (T83.9XXA: Unspecified complication of genitourinary prosthetic device, implant and graft, initial encounter) Future Appointments Appointment Date:10/18/2023 09:00:00 AM Scheduled Provider:Taz THOMAS MD Location:[facility] Appointment Type:URO New Patient Appointment Date:10/18/2023 09:15:00 AM Scheduled Provider:Sukh Harrington DPM [facility] Appointment Type:WC Follow Up Visit (FT) Appointment Date:11/01/2023 02:00:00 PM Scheduled Provider: Location:[facility] Appointment Type:URO Nurse Visit Appointment Date:11/16/2023 09:00:00 AM Scheduled Provider: Location:[facility] Appointment Type:Urology CALL PAT FT Appointment Date:11/20/2023 01:15:00 PM Scheduled Provider: Location:[facility] Appointment Type:Urology FT Future Scheduled Tests Radiology* XR Chest 2 Views 05/15/23 * XR Chest 2 Views 05/15/23 [facility]02-25-2024 Hospital Discharge instructions Patient Education 10/15/2023 06:54:02 Elliott Catheter Care[place] [place] Elliott Catheter Care, Male A Elliott catheter is a soft, flexible tube that is placed into the bladder to drain urine. The catheter has a balloon to hold it inside the bladder. A Elliott catheter may be inserted if: You leak urine or are not able to control when you urinate (urinary incontinence). You are not able to urinate when you need to (urinary retention). You had prostate surgery or surgery on the genitals. You have certain medical conditions, such as multiple sclerosis, dementia, or a spinal cord injury. To Prevent Infection: 1. Wash your hands with soap and water before and after handling your catheter. 2. Using mild soap and warm water on a clean washcloth; twice a day. Clean the area on your body closest to the catheter insertion site using a circular motion, moving away from the catheter. Never wipe toward the catheter because this could sweep bacteria up into theurethra and cause infection. Remove all traces of soap. Pat the area dry with a clean towel and reposition the foreskin. No tub baths. No lotions, powders, or sprays unless directed by your physician. 3. Keep the tube secure. Do not let the tube pull or catch when you are moving around. Attach the catheter to your leg so there is no tension on the catheter. Use adhesive tape or a leg strap. If you are using adhesive tape, remove any sticky residue left behind by the previous tape you used. 4. Replace wet leg straps with dry ones. 5. Wear cotton underwear to absorb moisture and keep sand drier. 6. Keep the drainage bag below the level of the bladder, but keep it off the floor. 7. Check throughout the day to be sure the catheter is working and urine is draining freely. Make sure the tubing does not become kinked or looped. 8. Do not pull on the catheter or try to remove it. Pulling could damage internal tissues. TAKING CARE OF THE DRAINAGE BAGS You will be given two drainage bags to take home. One is a large overnight drainage bag, and the other is a smaller leg bag that fits underneath clothing. You may wear the overnight bag at any time, but you should never wear the smaller leg bag at night, unless directed by your physician. Follow the instructions below for how to empty and change your drainage bags. Emptying the Drainage Bag You must empty your drainage bag when it is ? full. 1. Wash your hands with soap and water before and after handling your catheter. 2. Keep the drainage bag below your hips, below the level of your bladder. This stops urine from going back into the tubing and into your bladder. 3. Hold the dirty bag over the toilet or a clean container. 4. Open the pour spout at the bottom of the bag and empty the urine into the toilet or container. Do not let the pour spout touch the toilet, container, or any other surface. Doing so can place bacteria on the bag, which can cause an infection. 5. Clean the pour spout with a gauze pad or cotton ball that has rubbing alcohol on it. 6. Close the pour spout. 7. Attach the bag to your leg with adhesive tape or a leg strap. Changing the Drainage Bag 1. Wash your hands with soap and water before and after handling your catheter. 2. Pinch off the rubber catheter so that urine does not spill out. 3. Disconnect the catheter tube from the drainage tube at the connection valve. Do not let the tubes touch any surface. 4. Clean the end of the catheter tube with an alcohol wipe. Use a different alcohol wipe to clean the end of the drainage tube. 5. Connect the catheter tube to the drainage tube of the clean drainage bag. 6. Attach the new bag to the leg with adhesive tape or a leg strap. Avoid attaching the new bag tootightly. 7. Place a cap on the drainage bag not in use and store in a clean towel. SEEK MEDICAL CARE IF: Your urine is cloudy or smells. Your catheter starts to leak. Your catheter falls out or is pulled out. You have pain, swelling, redness, or pus where the catheter enters the body. You have pain in the abdomen, legs, lower back, or bladder. You have a fever of 100.4 F (38 C) or higher You see pink, red, dark, coffee colored, or pus-like urine. You have nausea, vomiting, or chills. You are not feeling better in 2 to 3 days or you are feeling worse. You are not draining urine into the bag or your bladder feels full. MAKE SURE YOU: Understand the reason you have the catheter. Understand and follow these instructions to care for the catheter. Will watch your condition. Drink 6-8 glasses of water or liquids per day to keep your urine clear. Avoid Caffeinated drinks. They can irritate the bladder and cause bladder spasms. Keep your follow up appointments and call with any concerns. Follow Up Care 10/15/2023 06:04:22 With:REID BROOKE Address: [facility] [place] [id number] [facility] (1) When:10/18/2023 06:53:53 Comments:Call the office of your primary care doctor to arrange for follow-up within the above-stated timeframe. Follow-up with your primary care doctor about this ED visit. You should review your labs, imaging, and diagnoses from this ED visit with your primary care physician. There are occasionally non-emergent findings that require additional follow-up after your ED visit. If you were prescribed medications you should discuss possible side-effects and drug interactions with your pharmacist. Call 911 or go to the nearest Emergency Department if you develop any new or worsening symptoms. [facility]02-22-2024 Progress note Author Gigi Cooper [facility] October 12, 2023 12:38pm Note Date/Time October 12, 2023 12:38pm [facility] [address] [place] [address] Nephrology Progress Note Signed Patient: Nicole Lora MR#: [id number] 29 : 1960 Acct:[id number] Age/Sex: 63 / M Adm Date: 4 Loc: Room: [address] [place] [address] Type: ADM IN Attending Dr: Yesi Murphy MD Copies to: ~ Date of Service: 10/12/2023 Subjective Subjective Narrative: This is a 63-year-old male patient with a past medical history of CHF with preserved ejection fraction, asthma, COPD, chronic respiratory failure on 4 L/min at home, type 2 diabetes, hyperlipidemia, BPH with urinary retention with chronic Elliott catheter, morbid obesity. Patient presented to the emergency roomfor body anasarca and worsening shortness of breath. Patient has shortness of breath at baseline but has been getting worse for the last few days. In the emergency room he was found to be hypoxic with oxygen saturation 75%. Patient said he has been compliant with low- salt diet and with his home diuretics. Patient said he has been sleeping on the recliner at home for the last few days. Patient has hard time sleeping from restless leg syndrome. Chest x-ray showed cardiomegaly with interstitial changes along with scarring and/or atelectasis ofthe left side lab revealed creatinine 1.86 mg deciliter from baseline 1.5, BUN 53, potassium 5.6 Kos 243. UA revealed 3 RBCs, protein 100 mg deciliter. Patient was given 1 dose of Lasix at admission and started on DuoNeb and Solu-Medrol. Patient was also given 1 dose of Lokelma for hyperkalemia .patient was admitted for COPD/CHF exacerbation. Patient was placed on Lasix 40 mg twice daily and acetazolamide 500 mg IV daily patient metolazone 5 mg x1. Serum creatinine this morning 1.5 mg deciliter. Patient produced 8.2 L of urine in the last 24 hours. Patient has Elliott catheter. Blood pressure this morning 144/76. Home Norvasc is on hold. Denied NSAID use. No recent IV contrast exposure. Patient came with a Elliott catheter in place. He has been following with urology clinic Interval history Patient was seen and examined in his room. Body edema is improving slowly but continues to have legs edema . Urine output dropped to 1.9 L with holding Lasix. Kidney function slightly better. Serum creatinine down to 1.9 mg deciliter. Patient continues to be on 3 to 4 L nasal cannula. Blood pressure has been well-controlled. Patient presented to the hospital with Elliott catheter in place for outpatient acute urine retention. He follows with urology clinic as outpatient No nausea no vomiting. No chest pain. No cough Exam Physical Exam Vital Signs: Temp Pulse Resp BP Pulse Ox O2 Del Method O2 Flow Rate 97.0 F L 74 18 148/76 H 97 Nasal Cannula 4 10/12/23 11:38 10/12/23 11:38 10/12/23 11:38 10/12/23 11:38 10/12/23 11:38 10/12/23 11:38 10/12/23 11:38 FiO2 4 10/12/23 00:00 Narrative: General: No acute distress Head :atraumatic normocephalic Eyes: PERRLA. Neck: no JVD no bruit. Heart: S1-S2. RRR Respiratory: Decreased breath sounds bilaterally due to body habitus. No wheezing no crackles Abdomen: Soft, positive bowel sounds,no tenderness. Neurology: Awake alert oriented x3. No focal deficits Extremity. No cyanosis. +2 edema of lower extremity Skin: No skin rash Elliott catheter in place which is draining light yellow urine Objective Intake and Output I&O: Intake & Output 10/09/23 10/10/23 10/11/23 10/12/23 23:59 23:59 23:59 23:59 Intake Total 1610 / 1610 1160 / 1160 460 / 460 300 / 300 Output Total 50435 / 16986 3600 / 3600 4050 / 4050 900 / 900 Balance -9465 / -9465 -2440 / -2440 -3590 / -3590 -600 / -600 Weight 317 lb 10.978 oz 307 lb 15.772 oz 307 lb 15.772 oz 298 lb 15.149 oz Meds and Allergies Meds: Active Medications Acetaminophen (Acetaminophen 500 Mg Tablet) 1,000 mg PO Q6HR PRN PRN Reason: Pain Scale 1 - 3 or fever Stop: 10/06/24 01:57 Last Admin: 10/09/23 21:48 Dose: 1,000 mg Atorvastatin Calcium (Atorvastatin 40 Mg Tablet) 40 mg PO DAILY [facility] Stop: 10/09/24 08:59 Last Admin: 10/12/23 08:27 Dose: 40 mg Budesonide/Formoterol Fumarate (Budesonide/Formoterol 160-4.5 Mcg 60 Puff/6 Gm Hfa.Aer.Ad) 2 puff INHALATION Q12HR.10A.10P [facility] Stop: 10/08/24 21:59 Last Admin: 10/12/23 09:05 Dose: 2 puff Dextrose (Dextrose 50% In Water 25 Gm/50 Ml Syringe) 0 gm IV-PUSH PRN PRN PRN Reason: Hypoglycemia Stop: 10/06/24 02:05 Furosemide (Furosemide 40 Mg/4 Ml Vial) 40 mg IV-PUSH BID@0800,1600 [facility] Stop: 10/06/24 07:59 Last Admin: 10/11/23 08:01 Dose: 40 mg Gabapentin (Gabapentin 600 Mg Tablet) 600 mg PO BID [facility] Stop: 10/06/24 11:59 Last Admin: 10/12/23 08:27 Dose: 600 mg Glucose (Dextrose 40% Gel 15 Gm Tube) 0 gm PO PRN PRN PRN Reason: Hypoglycemia Stop: 10/06/24 02:05 Heparin Sodium (Porcine) (Heparin 5,000 Unit/Ml Vial) 5,000 unit SUBCUT Q8HR [facility] Stop: 10/06/24 05:59 Last Admin: 10/12/23 04:59 Dose: 5,000 unit Hydralazine HCl (Hydralazine 50 Mg Tablet) 50 mg PO BID [facility] Stop: 10/08/24 08:59 Last Admin: 10/12/23 08:27 Dose: 50 mg Insulin Aspart (Insulin Aspart 300 Units/3 Ml Insuln.Pen) 0 units SUBCUT TID.WM.HS [facility]; Protocol Stop: 10/06/24 07:59 Last Admin: 10/12/23 11:57 Dose: 4 units Insulin Glargine (Insulin Glargine 300 Units/3 Ml Insuln.Pen) 20 units SUBCUT BID [facility] Stop: 10/07/24 20:59 Last Admin: 10/12/23 08:28 Dose: 20 units Naloxone HCl (Naloxone Hcl 0.4 Mg/Ml Vial) 0.1 mg IV-PUSH Q2M PRN PRN Reason: Opioid Reversal Stop: 10/06/24 01:57 Oxycodone HCl (Oxycodone Ir 5 Mg Tablet) 5 mg PO Q6HR PRN PRN Reason: Pain Scale 4 - 7 Last Admin: 10/10/23 23:15 Dose: 5 mg Pantoprazole Sodium (Pantoprazole 40 Mg Tablet.Dr) 40 mg PO DAILY [facility] Stop: 10/09/24 08:59 Last Admin: 10/12/23 08:27 Dose: 40 mg Ropinirole HCl (Ropinirole 1 Mg Tablet) 1 mg PO QHS [facility] Stop: 10/08/24 21:59 Last Admin: 10/11/23 21:36 Dose: 1 mg Sodium Chloride (Sodium Chloride 0.9 % 10 Ml Syringe) 0 ml IV-PUSH PRN PRN PRN Reason: Flush Stop: 10/05/24 20:20 Last Admin: 10/08/23 16:49 Dose: 10 ml Sodium Chloride (Sodium Chloride 0.9 % 10 Ml Syringe) 0 ml IV-PUSH QSHIFT [facility] Stop: 10/06/24 05:59 Last Admin: 10/12/23 04:59 Dose: 10 ml Tamsulosin HCl (Tamsulosin 0.4 Mg Cap.Er.24h) 0.4 mg PO DAILY [facility] Stop: 10/09/24 08:59 Last Admin: 10/12/23 08:27 Dose: 0.4 mg Allergies Penicillins Allergy (Verified 10/06/23 20:32) Rash Results Labs 10/06/23 20:35 10/12/23 08:55 Labs: 10/12/23 08:55 BUN 48 H Creatinine 1.95 H Phosphorus 3.4 Albumin 3.6 Radiology Impressions Impressions - last 24 hours: Any impression(s) listed above is documentation that was entered by the reading physician into a diagnostic report(s) for Nicole Lora. I have reviewed the report(s) and am incorporating any findings in the treatment plan of this patient where applicable. A&P - Nephrology Assessment/Plan (1) AMY (acute kidney injury): Plan: Acute kidney injury is likely prerenal from cardiorenal syndrome. Patient presented with worsening hypoxia and body anasarca. Chest x-ray showed CHF changes. Patient responding excellently to the current diuretics dose. UA revealed 100 protein and RBCs 5-9. Patient likely has diabetic nephropathy at baseline (2) CKD (chronic kidney disease) stage 3, GFR 30-59 ml/min: Plan: Patient has diabetic nephropathy at baseline. Baseline serum creatinine around 1.5 mg deciliter. UA revealed 100 protein (3) Hyperkalemia: Plan: Patient presented with potassium of 5.6 mmol/L. This has improved with Lokelma and diuresis. Potassium this morning 3.8 (4) Hypertension: Plan: Blood pressure slightly above the target. Home Norvasc is on hold. Patient only on diuretics (5) Acute on chronic respiratory failure with hypoxia and hypercapnia: Plan: Patient has a chronic respiratory failure on 4 L nasal cannula. Patient presented with hypoxia and body edema. Patient is being treated for CHF exacerbation (6) Urine retention: Plan: Patient presented with Elliott catheter in place. He does follow with urology clinic. I am not sure if the patient has neurogenic bladder from diabetic neuropathy Plan -Kidney function slightly better with holding Lasix probably will have to accepthigher baseline creatinine to help controlling volume -Will place the patient on torsemide 40 mg p.o. daily -Continue Flomax. Continue Elliott catheter for acute urine retention and accurate urine documentation -There is no need for renal placement therapy -Continue hydralazine 50 mg twice daily. continue to monitor blood pressure -Serum potassium remains within normal limits.. Will continue to monitor potassium level -Continue CHF core measures. Continue daily weights with low-salt diet. -Check renal function panel in a.m. Okay to discharge patient from nephrology standpoint. Patient can be dischargedwith torsemide 40 mg p.o. daily. Check renal function panel next week. Patientscheduled the patient to follow with nephrology clinic in 2 to 3 weeks after hospital discharge Renal team will continue to follow. Call if any question or concern Documented By: Gigi Cooper MD 10/12/23 1236 Signed By: <Electronically signed by Gigi Cooper MD> 10/12/23 1238 [facility] Work Phone: 1(343) 799-472602-22-2024 Discharge summary Author Yesi Murphy [facility] October 12, 2023 1:36pm Note Date/Time October 12, 2023 10:[address] [place] [address] [place] [address] Discharge Summary Signed Patient: Nicole Lora MR#: [id number] [birth year] : 1960 Acct:[id number] Age/Sex: 63 / M Adm Date: 4 Loc: Room: [address] [place] [address]: Yesi Murphy MD Copies to: Mounika Lawrence DO, RES Yesi Murphy MD~ Providers Date of Admission: 10/07/23 Date of Discharge: 10/12/23 Discharging Provider: Yesi Murphy Primary Care Provider: Mounika Brooke Consults: 10/07/23 02:00 Consult to Occupational Therapy Routine Comment: Physician Instructions: Consult to OT for:: Evaluation and Treat Consult to Physical Therapy Routine Comment: Physician Instructions: Consult to PT for:: Evaluation and Treat 10/08/23 12:40 Consult to Nephrology Routine Comment: Consulting Provider: Hood Zacarias Has Provider Been Notified: Yes Date of Notification: 10/08/23 Time of Notification: 13:06 Extended Comment: volume overload Reason for Consult: Renal Failure Discharge Diagnosis (1) AMY (acute kidney injury): (2) CKD (chronic kidney disease) stage 3, GFR 30-59 ml/min: (3) Hyperkalemia: (4) Hypertension: (5) Acute on chronic respiratory failure with hypoxia and hypercapnia: (6) Urine retention: Final Diagnosis Final Discharge Diagnosis: Acute on chronic respiratory failure with hypoxia and hypercapnia, discharged on4 L nasal cannula which is chronic for the patient due to acute on chronic diastolic congestive heart failure AMY on CKD stage 3 Hyperkalemia Urinary retention, discharged with Elliott catheter with recommendation to follow- up with urology Diabetes mellitus type 2 Hypertension, uncontrolled, medications adjusted obstructive sleep apnea Suspected obstructive sleep apnea, referred to sleep study COPD Summary Hospital Course Hospital course: 63 yo male with PMHx of CHF, asthma, chronic respiratory failure on 4L NC, T2DM,neuropathy, BPH that presented to ED on 10/06 for fluid retention. Of note, he had urinary catheter placed for urinary retention with plan to get removed by urology outpatient. He was oxygenating in the mid 70s and initially required Vapotherm. Admitted to worsening leg swelling despite taking his water pills. Otherwise, had no additional complaints. CXR showed congestion. Echo did show EF65-70%. He was given lasix, duonebs, solumedrol in the ED. Upon admission, he was placed on bipap to maintain oxygen and was weaned back to his baseline 4L during his hospitalization. Significant diuresis was continued througout his stay with a cumulative -70248 ml during his stay. He did have AMY on CKD3 which was monitored daily with BMP and was followed by nephrology team. He did develophyperkalemia during his stay which he received Lokelma x1 for and resolved afterthat. His other home medications for chronic conditions were continued during his hospitalization. Of note, patient did refuse telemetry and pulled out his Fern morning of discharge. His lower extremity edema, oxygenation, and shortness of breath significantly improved on day of discharge. He states he feels ready to go home. He will be discharged home with home health services. The patient has been seen and examined. I personally obtained the dacosta and critical portions of the history and physical exam. I reviewed the chart, the team's documentation, and discussed the patient care with the team. I agree with the team's medical decision making and have edited the note to reflect my clinical findings and my assessment and plan. MD Charan Condition Condition at Discharge: Stable Status at Discharge Functional status at discharge: independent ambulation Overall status at discharge: patient is progressing back to baseline Time Spent with Patient Time spent providing/coordinating discharge services (# min): 30 Diagnostic Studies Completed and Pending Studies Pending studies at discharge: 10/12/23 08:55 Renal Function Panel [CHEM] Stat Labs on day of discharge: 10/12/23 08:06: POC Glucose 218, POC Glucose Comment Glu2: cleaned meter 10/11/23 20:48: POC Glucose 251 10/11/23 16:29: POC Glucose 199 10/11/23 11:22: POC Glucose 175 Exam Physical Exam Vital Signs: Temp Pulse Resp BP Pulse Ox O2 Del Method O2 Flow Rate 97.4 F L 78 18 157/73 H 94 L Nasal Cannula 4 10/12/23 05:06 10/12/23 05:06 10/12/23 05:06 10/12/23 05:06 10/12/23 05:06 10/12/23 09:06 10/12/23 09:06 FiO2 4 10/12/23 00:00 Narrative: CONSTITUTIONAL: Alert, oriented HEAD: Normocephalic, atraumatic EYES: EOMI, pupils equal and reactive, conjunctiva normal RESPIRATORY: Diminished breath sounds bilaterally, no wheezes, rhonchi, or crackles noted CARDIOVASCULAR: Regular rate and regular rhythm, no murmurs ABDOMEN: Soft, rounded, non-tender, non-distended, normal bowel sounds EXTREM: 2+ pitting edema bilateral lower extremities NEURO: Cranial nerves grossly intact, no focal neurologic signs PSYCHIATRIC: Flat affect Discharge Plan Discharge Plan Patient Disposition: Home Health [facility] Activity: No Activity Restriction Diet: Diabetic and Low-Sodium Comment: fluid restriction up to 2000cc/24h Additional Instructions: Home Health to manage care: - Full code - PT/OT eval and treat - Routine vital signs - Medication management - Continue previous wound care orders at discharge. Left plantar foot ulcer- Soak with Vashe. Silvasorb gel to the wound bed. Top with Adaptic and 4x4 gauze. Secure with Kerlix and paper tape. Change daily and as needed. - Maintain indwelling elliott catheter to drainage or leg bag, routine care per protocol - follow-up with Urology as scheduled - Fingerstick blood sugar ACHS - Oxygen at 4L per nasal cannula per chronic orders - BMP in 1 week - results to Dr. Cooper - Fluid restriction 2000ml/24h Please weight yourself daily. If your weight increases by 3 to 4 pounds, please take your water pills twice daily for couple of days and limit fluid intake. Please avoid any additional salt. Prescriptions: New torsemide 20 mg Tablet 40 mg PO DAILY@0800 30 Days Qty: 30 0RF hydralazine 50 mg Tablet 75 mg PO BID 60 Days Qty: 180 0RF Continued gabapentin 600 mg tablet 600 mg PO TID Patient Comments: take 1 tablet by mouth three times a day ropinirole 1 mg tablet 1 mg PO QHS Patient Comments: take 1 tablet by mouth every evening pantoprazole 40 mg tablet,delayed release (DR/EC) 40 mg PO DAILY Patient Comments: take 1 tablet by mouth once daily insulin lispro [Humalog U-100 Insulin] 100 unit/mL Solution 1 sliding scale dose Rx Instructions: Sliding scale budesonide-formoterol [Symbicort] 160-4.5 mcg/actuation HFA aerosol inhaler 2 puff INHALATION BID Patient Comments: inhale 2 puffs by mouth twice a day insulin glargine U-300 conc [Toujeo Max U-300 SoloStar] 300 unit/mL (3 mL) Insulin Pen 35 unit SUBCUT BID Qty: 3 0RF atorvastatin 40 mg tablet 40 mg PO DAILY tamsulosin 0.4 mg capsule 0.4 mg PO DAILY Changed Jentadueto 2.5-1,000 mg tablet 1 tab PO DAILY Qty: 30 0RF Patient Comments: take 1 tablet by mouth twice a day Discontinued furosemide [Lasix] 20 mg tablet 20 mg PO DAILY Qty: 30 0RF cephalexin 500 mg capsule 500 mg PO QID tizanidine 2 mg tablet 2 mg PO Q8HR amlodipine 10 mg tablet 10 mg PO DAILY Other Ambulatory Orders: Initiate Home Health (Routine) Timeframe: 1 Day Location: Determined by Patient Ordered By: Yesi Murphy Basic Metabolic Panel (Routine) Timeframe: 1 Week Location: Determined by Patient Ordered By: Yesi Murphy Follow Up: [facility] Nephrology - [place] [Outside] - 10/24/23 10:40 am (Follow-up with Nephrology, call office to reschedule if needed. ) Mounika Brooke MD [Primary Care Provider] - 10/17/23 1:20 pm (Follow-up with your Primary Care Provider, call office to reschedule if needed. ) Documented By: Loreta Lawrence DO, RES 10/12/23 1 014 Signed By: <Electronically signed by DO JOSE Lawrence> 10/12/23 1327 <Electronically signed by Yesi Murphy MD> 10/12/23 1336 [facility] Work Phone: 1(963) 615-141402-21-2024 Progress note Author Gigi Cooper [facility] October 11, 2023 12:27pm Note Date/Time October 11, 2023 12:27pm [facility] ENTER [address] [place], [place] [id number] Nephrology Progress Note Signed Patient: Nicole Lora MR#: [id number] [birth year] : 1960 Acct:[id number] Age/Sex: 63 / M Adm Date: 4 Loc: 3T Room: [address] [place] [address] Type: ADM IN Attending Dr: Yesi Murphy MD Copies to: ~ Date of Service: 10/11/2023 Subjective Subjective Narrative: This is a 63-year-old male patient with a past medical history of CHF with preserved ejection fraction, asthma, COPD, chronic respiratory failure on 4 L/min at home, type 2 diabetes, hyperlipidemia, BPH with urinary retention with chronic Elliott catheter, morbid obesity. Patient presented to the emergency roomfor body anasarca and worsening shortness of breath. Patient has shortness of breath at baseline but has been getting worse for the last few days. In the emergency room he was found to be hypoxic with oxygen saturation 75%. Patient said he has been compliant with low- salt diet and with his home diuretics. Patient said he has been sleeping on the recliner at home for the last few days. Patient has hard time sleeping from restless leg syndrome. Chest x-ray showed cardiomegaly with interstitial changes along with scarring and/or atelectasis ofthe left side lab revealed creatinine 1.86 mg deciliter from baseline 1.5, BUN 53, potassium 5.6 Kos 243. UA revealed 3 RBCs, protein 100 mg deciliter. Patient was given 1 dose of Lasix at admission and started on DuoNeb and Solu-Medrol. Patient was also given 1 dose of Lokelma for hyperkalemia .patient was admitted for COPD/CHF exacerbation. Patient was placed on Lasix 40 mg twice daily and acetazolamide 500 mg IV daily patient metolazone 5 mg x1. Serum creatinine this morning 1.5 mg deciliter. Patient produced 8.2 L of urine in the last 24 hours. Patient has Elliott catheter. Blood pressure this morning 144/76. Home Norvasc is on hold. Denied NSAID use. No recent IV contrast exposure. Patient came with a Elliott catheter in place. He has been following with urology clinic Interval history Patient was seen and examined in his room. Body edema is improving slowly but continues to have legs edema . Urine output 4.2 L. Remains on Lasix 40 mg IV twice daily. Patient continues to be on 3 to 4 L nasal cannula. Blood pressure has improved with the starting hydralazine 50 mg twice daily. Patient presented to the hospital with Elliott catheter in place for outpatient acute urine retention. He follows with urology clinic as outpatient No nausea no vomiting. No chest pain. No cough Exam Physical Exam Vital Signs: Temp Pulse Resp BP Pulse Ox O2 Del Method O2 Flow Rate 97.4 F L 78 18 126/55 L 97 Nasal Cannula 4 10/11/23 11:35 10/11/23 11:35 10/11/23 11:35 10/11/23 11:35 10/11/23 11:35 10/11/23 11:36 10/11/23 11:36 FiO2 35 10/08/23 11:53 Narrative: General: No acute distress Head :atraumatic normocephalic Eyes: PERRLA. Neck: no JVD no bruit. Heart: S1-S2. RRR Respiratory: Decreased breath sounds bilaterally due to body habitus. No wheezing no crackles Abdomen: Soft, positive bowel sounds,no tenderness. Neurology: Awake alert oriented x3. No focal deficits Extremity. No cyanosis. +2 edema of lower extremity Skin: No skin rash Elliott catheter in place which is draining light yellow urine Objective Intake and Output I&O: Intake & Output 10/08/23 10/09/23 10/10/23 10/11/23 23:59 23:59 23:59 23:59 Intake Total 750 / 750 1610 / 1610 1160 / 1160 100 / 100 Output Total 3475 / 3475 47337 / 30984 3600 / 3600 1500 / 1500 Balance -2725 / -2725 -9465 / -9465 -2440 / -2440 -1400 / -1400 Weight 331 lb 9.204 oz 317 lb 10.978 oz 307 lb 15.772 oz 307 lb 15.772 oz Meds and Allergies Meds: Active Medications Acetaminophen (Acetaminophen 500 Mg Tablet) 1,000 mg PO Q6HR PRN PRN Reason: Pain Scale 1 - 3 or fever Stop: 10/06/24 01:57 Last Admin: 10/09/23 21:48 Dose: 1,000 mg Atorvastatin Calcium (Atorvastatin 40 Mg Tablet) 40 mg PO DAILY [facility] Stop: 10/09/24 08:59 Last Admin: 10/11/23 08:02 Dose: 40 mg Budesonide/Formoterol Fumarate (Budesonide/Formoterol 160-4.5 Mcg 60 Puff/6 Gm Hfa.Aer.Ad) 2 puff INHALATION Q12HR.10A.10P [facility] Stop: 10/08/24 21:59 Last Admin: 10/11/23 07:58 Dose: 2 puff Dextrose (Dextrose 50% In Water 25 Gm/50 Ml Syringe) 0 gm IV-PUSH PRN PRN PRN Reason: Hypoglycemia Stop: 10/06/24 02:05 Furosemide (Furosemide 40 Mg/4 Ml Vial) 40 mg IV-PUSH BID@0800,1600 [facility] Stop: 10/06/24 07:59 Last Admin: 10/11/23 08:01 Dose: 40 mg Gabapentin (Gabapentin 600 Mg Tablet) 600 mg PO BID [facility] Stop: 10/06/24 11:59 Last Admin: 10/11/23 08:02 Dose: 600 mg Glucose (Dextrose 40% Gel 15 Gm Tube) 0 gm PO PRN PRN PRN Reason: Hypoglycemia Stop: 10/06/24 02:05 Heparin Sodium (Porcine) (Heparin 5,000 Unit/Ml Vial) 5,000 unit SUBCUT Q8HR [facility] Stop: 10/06/24 05:59 Last Admin: 10/11/23 05:42 Dose: 5,000 unit Hydralazine HCl (Hydralazine 50 Mg Tablet) 50 mg PO BID [facility] Stop: 10/08/24 08:59 Last Admin: 10/11/23 08:02 Dose: 50 mg Insulin Aspart (Insulin Aspart 300 Units/3 Ml Insuln.Pen) 0 units SUBCUT TID.WM.HS [facility]; Protocol Stop: 10/06/24 07:59 Last Admin: 10/11/23 11:38 Dose: 3 units Insulin Glargine (Insulin Glargine 300 Units/3 Ml Insuln.Pen) 20 units SUBCUT BID [facility] Stop: 10/07/24 20:59 Last Admin: 10/11/23 08:02 Dose: 20 units Naloxone HCl (Naloxone Hcl 0.4 Mg/Ml Vial) 0.1 mg IV-PUSH Q2M PRN PRN Reason: Opioid Reversal Stop: 10/06/24 01:57 Oxycodone HCl (Oxycodone Ir 5 Mg Tablet) 5 mg PO Q6HR PRN PRN Reason: Pain Scale 4 - 7 Last Admin: 10/10/23 23:15 Dose: 5 mg Pantoprazole Sodium (Pantoprazole 40 Mg Tablet.Dr) 40 mg PO DAILY [facility] Stop: 10/09/24 08:59 Last Admin: 10/11/23 08:02 Dose: 40 mg Ropinirole HCl (Ropinirole 1 Mg Tablet) 1 mg PO QHS [facility] Stop: 10/08/24 21:59 Last Admin: 10/10/23 22:04 Dose: 1 mg Sodium Chloride (Sodium Chloride 0.9 % 10 Ml Syringe) 0 ml IV-PUSH PRN PRN PRN Reason: Flush Stop: 10/05/24 20:20 Last Admin: 10/08/23 16:49 Dose: 10 ml Sodium Chloride (Sodium Chloride 0.9 % 10 Ml Syringe) 0 ml IV-PUSH QSHIFT [facility] Stop: 10/06/24 05:59 Last Admin: 10/11/23 05:42 Dose: 10 ml Tamsulosin HCl (Tamsulosin 0.4 Mg Cap.Er.24h) 0.4 mg PO DAILY [facility] Stop: 10/09/24 08:59 Last Admin: 10/11/23 08:02 Dose: 0.4 mg Allergies Penicillins Allergy (Verified 10/06/23 20:32) Rash Results Labs 10/06/23 20:35 10/11/23 06:43 Labs: 10/11/23 06:43 BUN 49 H Creatinine 2.11 H D Radiology Impressions Impressions - last 24 hours: Any impression(s) listed above is documentation that was entered by the reading physician into a diagnostic report(s) for Nicole Lora. I have reviewed the report(s) and am incorporating any findings in the treatment plan of this patient where applicable. A&P - Nephrology Assessment/Plan (1) AMY (acute kidney injury): Plan: Acute kidney injury is likely prerenal from cardiorenal syndrome. Patient presented with worsening hypoxia and body anasarca. Chest x-ray showed CHF changes. Patient responding excellently to the current diuretics dose. UA revealed 100 protein and RBCs 5-9. Patient likely has diabetic nephropathy at baseline (2) CKD (chronic kidney disease) stage 3, GFR 30-59 ml/min: Plan: Patient has diabetic nephropathy at baseline. Baseline serum creatinine around 1.5 mg deciliter. UA revealed 100 protein (3) Hyperkalemia: Plan: Patient presented with potassium of 5.6 mmol/L. This has improved with Lokelma and diuresis. Potassium this morning 3.8 (4) Hypertension: Plan: Blood pressure slightly above the target. Home Norvasc is on hold. Patient only on diuretics (5) Acute on chronic respiratory failure with hypoxia and hypercapnia: Plan: Patient has a chronic respiratory failure on 4 L nasal cannula. Patient presented with hypoxia and body edema. Patient is being treated for CHF exacerbation (6) Urine retention: Plan: Patient presented with Elliott catheter in place. He does follow with urology clinic. I am not sure if the patient has neurogenic bladder from diabetic neuropathy Plan -Kidney function worsened likely from decreased intervascular volume related to intense diuresis. Probably will have to accept higher baseline creatinine to help controlling volume - I will hold Lasix for now -Continue Flomax. Continue Elliott catheter for acute urine retention and accurate urine documentation -There is no need for renal placement therapy -Continue hydralazine 50 mg twice daily. continue to monitor blood pressure -Serum potassium remains within normal limits.. Will continue to monitor potassium level -Continue CHF core measures. Continue daily weights with low-salt diet. -Check renal function panel in a.m. Renal team will continue to follow. Call if any question or concern Documented By: Gigi Cooper MD 10/11/231223 Signed By: <Electronically signed by Gigi Cooper MD> 10/11/23 1227 [facility] Work Phone: 1([phone]) 463-959702-21-2024 Progress note Author Yesi Murphy [facility] October 11, 2023 8:19am Note Date/Time October 11, 2023 8:17am [facility] [address] [place] [address] Hospitalist Progress Note Signed Patient: Nicole Lora MR#: [id number] 29 : 1960 Acct:[id number] Age/Sex: 63 / M Adm Date: 4 Loc: 3T Room: [address] [place] [address] Type: ADM IN Attending Dr: Yesi Murphy MD Copies to: ~ Date of Service: 10/11/2023 Subjective Subjective Narrative: Patient has been seen and examined. He continues to feel better. Shortness of breath improved. Lower extremity edema improving, Elliott catheter in place, -3.2 L within the last 24 hours negative balance Physical exam: General -awake, alert, oriented ?3, not in acute distress, sitting in the chair Cardiovascular -S1 with S2, no murmurs, no rubs, no gallops Pulmonary -diminished breath sounds bilaterally Gastrointestinal - abdomen is soft, nondistended, nontender, bowel sounds positive, there is no rigidity, no rebound Extremities -2+ edema bilateral Neurological -no focal neurological dysfunction noted Laboratory work up and Imaging studies reviewed Exam Physical Exam Vital Signs: Temp Pulse Resp BP Pulse Ox O2 Del Method O2 Flow Rate 36.3 C L 68 18 160/85 H 94 L Nasal Cannula 4 10/11/23 07:35 10/11/23 07:35 10/11/23 07:35 10/11/23 07:35 10/11/23 07:35 10/11/23 07:35 10/11/23 07:35 FiO2 35 10/08/23 11:53 Objective Lab Results 10/06/23 20:35 10/10/23 06:28 Microbiology Results Microbiology 10/06/23 22:05 Blood - Right Antecubital Blood Culture - Preliminary No Growth 4 Days 10/06/23 22:13 Blood - Left Hand Blood Culture - Preliminary No Growth 4 Days Meds Allergies and Active Meds Allergies Penicillins Allergy (Verified 10/06/23 20:32) Rash Active Meds: Active Medications Generic Name Dose Route Start Last Admin Trade Name Freq PRN Reason Stop Dose Admin Acetaminophen 1,000 mg 10/07/23 01:58 10/09/23 21:48 Acetaminophen 500 Mg Tablet PO 10/06/24 01:57 1,000 mg Q6HR PRN Administration Pain Scale 1 - 3 or fever Atorvastatin Calcium 40 mg 10/10/23 09:00 10/11/23 08:02 Atorvastatin 40 Mg Tablet PO 10/09/24 08:59 40 mg DAILY JIMMIE Administration Budesonide/Formoterol Fumarate 2 puff 10/09/23 22:00 10/11/23 07:58 Budesonide/Formoterol 160-4.5 Mcg 60 Puff/6 Gm Hfa.Aer.Ad INHALATION 10/08/24 21:59 2 puff Q12HR.10A.10P JIMMIE Administration Dextrose 0 gm 10/07/23 02:06 Dextrose 50% In Water 25 Gm/50 Ml Syringe IV-PUSH 10/06/24 02:05 PRN PRN Hypoglycemia Furosemide 40 mg 10/07/23 08:00 10/11/23 08:01 Furosemide 40 Mg/4 Ml Vial IV-PUSH 10/06/24 07:59 40 mg BID@0800,1600 JIMMIE Administration Gabapentin 600 mg 10/07/23 12:00 10/11/23 08:02 Gabapentin 600 Mg Tablet PO 10/06/24 11:59 600 mg BID JIMMIE Administration Glucose 0 gm 10/07/23 02:06 Dextrose 40% Gel 15 Gm Tube PO 10/06/24 02:05 PRN PRN Hypoglycemia Heparin Sodium (Porcine) 5,000 unit 10/07/23 06:00 10/11/23 05:42 Heparin 5,000 Unit/Ml Vial SUBCUT 10/06/24 05:59 5,000 unit Q8HR JIMMIE Administration Hydralazine HCl 50 mg 10/09/23 09:00 10/11/23 08:02 Hydralazine 50 Mg Tablet PO 10/08/24 08:59 50 mg BID JIMMIE Administration Insulin Aspart 0 units 10/07/23 08:00 10/11/23 08:01 Insulin Aspart 300 Units/3 Ml Insuln.Pen SUBCUT 10/06/24 07:59 3 units TID.WM.HS JIMMIE Administration Protocol Insulin Glargine 20 units 10/08/23 21:00 10/11/23 08:02 Insulin Glargine 300 Units/3 Ml Insuln.Pen SUBCUT 10/07/24 20:59 20 units BID JIMMIE Administration Naloxone HCl 0.1 mg 10/07/23 01:58 Naloxone Hcl 0.4 Mg/Ml Vial IV-PUSH 10/06/24 01:57 Q2M PRN Opioid Reversal Oxycodone HCl 5 mg 10/07/23 01:58 10/10/23 23:15 Oxycodone Ir 5 Mg Tablet PO 5 mg Q6HR PRN Administration Pain Scale 4 - 7 Pantoprazole Sodium 40 mg 10/10/23 09:00 10/11/23 08:02 Pantoprazole 40 Mg Tablet.Dr PO 10/09/24 08:59 40 mg DAILY JIMMIE Administration Ropinirole HCl 1 mg 10/09/23 22:00 10/10/23 22:04 Ropinirole 1 Mg Tablet PO 10/08/24 21:59 1 mg QHS JIMMIE Administration Sodium Chloride 0 ml 10/06/23 20:21 10/08/23 16:49 Sodium Chloride 0.9 % 10 Ml Syringe IV-PUSH 10/05/24 20:20 10 ml PRN PRN Administration Flush Sodium Chloride 0 ml 10/07/23 06:00 10/11/23 05:42 Sodium Chloride 0.9 % 10 Ml Syringe IV-PUSH 10/06/24 05:59 10 ml QSHIFT JIMMIE Administration Tamsulosin HCl 0.4 mg 10/10/23 09:00 10/11/23 08:02 Tamsulosin 0.4 Mg Cap.Er.24h PO 10/09/24 08:59 0.4 mg DAILY JIMMIE Administration A&P - Hospitalist Assessment/Plan (1) Acute on chronic respiratory failure with hypoxia and hypercapnia: (2) CHF (congestive heart failure): (3) Obesity hypoventilation syndrome: (4) COPD (chronic obstructive pulmonary disease): (5) Diabetes mellitus, type 2: (6) Hypertension: (7) AMY (acute kidney injury): (8) CKD (chronic kidney disease) stage 3, GFR 30-59 ml/min: (9) Urine retention: Plan Acute on chronic respiratory failure with hypoxia and hypercapnia Due to suspected acute on chronic heart failure with preserved ejection [id number]% Patient is using 4 L nasal cannula at home since pneumonia hospitalization Previously required Vapotherm, currently on 4 L, saturating 97% Still complains of significant lower extremity edema but improved swelling sinceadmission Continue with diuretic IV therapy, good negative balance continuing I/Os, daily weights, heart healthy diet Obesity hypoventilation syndrome COPD Continue bronchodilators AMY on CKD stage III BMP still pending Hyperkalemia Improved, BMP still pending Diabetes mellitus type 2 Continue with insulin therapy Urinary retention Status post Elliott catheter placement 2 weeks ago Has an appointment with urologist as outpatient Asking if catheter can be removed while inpatient DVT PPx-SCDs, Madyson wrap's, heparin Diet order-1800 ADA, heart healthy CODE STATUS-full code Plan to DC in a.m. Documented By: Yesi Murphy MD 10/11/23814 Signed By: <Electronically signed by Yesi Murphy MD> 10/11/23818 [facility] Work Phone: 1(415) 238-438902-20-2024 Progress note Author Yesi Murphy [facility] October 10, 2023 1:19pm Note Date/Time October 10, 2023 10:12am [facility] [address] [place] [address] Hospitalist Progress Note Signed Patient: Nicole Lora MR#: [id number] 29 : 1960 Acct:[id number] Age/Sex: 63 / M Adm Date: 4 Loc: 3T Room: [address] [place] [address] Type: ADM IN Attending Dr: Yesi Murphy MD Copies to: ~ Date of Service: 10/10/2023 Subjective Subjective Narrative: Patient resting in chair. States he feels much better but is most concerned about going home with the catheter and keeping the fluid off. Still has significant swelling in BLLE but notices they are improved from yesterday and nolonger has water spots . Has not had a BM today but is passing gas. Exam Physical Exam Vital Signs: Temp Pulse Resp BP Pulse Ox O2 Del Method O2 Flow Rate 97.6 F 68 18 119/66 97 Nasal Cannula 3.5 10/10/23 08:00 10/10/23 08:00 10/10/23 08:00 10/10/23 08:00 10/10/23 08:00 10/10/23 08:00 10/10/23 08:00 FiO2 35 10/08/23 11:53 Narrative: CONSTITUTIONAL: Alert, oriented HEAD: Normocephalic, atraumatic EYES: EOMI, pupils equal and reactive, conjunctiva normal RESPIRATORY: Diminished breath sounds bilaterally, no wheezes, rhonchi, or crackles noted CARDIOVASCULAR: Regular rate and regular rhythm, no murmurs ABDOMEN: Soft, rounded, non-tender, non-distended, normal bowel sounds EXTREM: 2-3+ pitting edema bilateral lower extremities NEURO: Cranial nerves grossly intact, no focal neurologic signs PSYCHIATRIC: Flat affect Objective Lab Results 10/06/23 20:35 10/10/23 06:28 Microbiology Results Microbiology 10/06/23 22:05 Blood - Right Antecubital Blood Culture - Preliminary No Growth 3 Days 10/06/23 22:13 Blood - Left Hand Blood Culture - Preliminary No Growth 3 Days Meds Allergies and Active Meds Allergies Penicillins Allergy (Verified 10/06/23 20:32) Rash Active Meds: Active Medications Generic Name Dose Route Start Last Admin Trade Name Freq PRN Reason Stop Dose Admin Acetaminophen 1,000 mg 10/07/23 01:58 10/09/23 21:48 Acetaminophen 500 Mg Tablet PO 10/06/24 01:57 1,000 mg Q6HR PRN Administration Pain Scale 1 - 3 or fever Atorvastatin Calcium 40 mg 10/10/23 09:00 10/10/23 08:35 Atorvastatin 40 Mg Tablet PO 10/09/24 08:59 40 mg DAILY JIMMIE Administration Budesonide/Formoterol Fumarate 2 puff 10/09/23 22:00 10/09/23 20:43 Budesonide/Formoterol 160-4.5 Mcg 60 Puff/6 Gm Hfa.Aer.Ad INHALATION 10/08/24 21:59 2 puff Q12HR.10A.10P JIMMIE Administration Dextrose 0 gm 10/07/23 02:06 Dextrose 50% In Water 25 Gm/50 Ml Syringe IV-PUSH 10/06/24 02:05 PRN PRN Hypoglycemia Furosemide 40 mg 10/07/23 08:00 10/10/23 08:35 Furosemide 40 Mg/4 Ml Vial IV-PUSH 10/06/24 07:59 40 mg BID@0800,1600 JIMMIE Administration Gabapentin 600 mg 10/07/23 12:00 10/10/23 08:35 Gabapentin 600 Mg Tablet PO 10/06/24 11:59 600 mg BID JIMMIE Administration Glucose 0 gm 10/07/23 02:06 Dextrose 40% Gel 15 Gm Tube PO 10/06/24 02:05 PRN PRN Hypoglycemia Heparin Sodium (Porcine) 5,000 unit 10/07/23 06:00 10/10/23 05:49 Heparin 5,000 Unit/Ml Vial SUBCUT 10/06/24 05:59 5,000 unit Q8HR JIMMIE Administration Hydralazine HCl 50 mg 10/09/23 09:00 10/10/23 08:36 Hydralazine 50 Mg Tablet PO 10/08/24 08:59 50 mg BID JIMMIE Administration Insulin Aspart 0 units 10/07/23 08:00 10/10/23 08:37 Insulin Aspart 300 Units/3 Ml Insuln.Pen SUBCUT 10/06/24 07:59 4 units TID.WM.HS JIMMIE Administration Protocol Insulin Glargine 20 units 10/08/23 21:00 10/10/23 08:37 Insulin Glargine 300 Units/3 Ml Insuln.Pen SUBCUT 10/07/24 20:59 20 units BID JIMMIE Administration Naloxone HCl 0.1 mg 10/07/23 01:58 Naloxone Hcl 0.4 Mg/Ml Vial IV-PUSH 10/06/24 01:57 Q2M PRN Opioid Reversal Oxycodone HCl 5 mg 10/07/23 01:58 10/10/23 08:35 Oxycodone Ir 5 Mg Tablet PO 5 mg Q6HR PRN Administration Pain Scale 4 - 7 Pantoprazole Sodium 40 mg 10/10/23 09:00 10/10/23 08:35 Pantoprazole 40 Mg Tablet.Dr PO 10/09/24 08:59 40 mg DAILY JIMMIE Administration Ropinirole HCl 1 mg 10/09/23 22:00 10/09/23 21:48 Ropinirole 1 Mg Tablet PO 10/08/24 21:59 1 mg QHS JIMMIE Administration Sodium Chloride 0 ml 10/06/23 20:21 10/08/23 16:49 Sodium Chloride 0.9 % 10 Ml Syringe IV-PUSH 10/05/24 20:20 10 ml PRN PRN Administration Flush Sodium Chloride 0 ml 10/07/23 06:00 10/10/23 05:49 Sodium Chloride 0.9 % 10 Ml Syringe IV-PUSH 10/06/24 05:59 10 ml QSHIFT JIMMIE Administration Tamsulosin HCl 0.4 mg 10/10/23 09:00 10/10/23 08:35 Tamsulosin 0.4 Mg Cap.Er.24h PO 10/09/24 08:59 0.4 mg DAILY JIMMIE Administration A&P - Hospitalist Assessment/Plan (1) Acute on chronic respiratory failure with hypoxia and hypercapnia: (2) CHF (congestive heart failure): (3) Obesity hypoventilation syndrome: (4) COPD (chronic obstructive pulmonary disease): (5) Diabetes mellitus, type 2: (6) Hypertension: (7) AMY (acute kidney injury): (8) CKD (chronic kidney disease) stage 3, GFR 30-59 ml/min: (9) Urine retention: Plan Acute on chronic respiratory failure with hypoxia and hypercapnia Due to suspected acute on chronic heart failure with preserved ejection [id number]% Patient is using 4 L nasal cannula at home since pneumonia hospitalization Previously required Vapotherm, currently on 3.5 L, saturating 97% Still complains of significant lower extremity edema but improved swelling from yesterday Continue with diuretic IV therapy, good negative balance continuing I/Os, daily weights, heart healthy diet Obesity hypoventilation syndrome COPD Continue bronchodilators AMY on CKD stage III Current creatinine seems to be around baseline Nephrology consulted - started hydralazine 50mg bid, continue flomax, lasix Hyperkalemia Improved, K level is 3.8 Diabetes mellitus type 2 Continue with insulin therapy Urinary retention Status post Elliott catheter placement 2 weeks ago Has an appointment with urologist as outpatient Asking if catheter can be removed while inpatient DVT PPx-SCDs, Madyson wrap's, heparin Diet order-1800 ADA, heart healthy CODE STATUS-full code The patient has been seen and examined. I personally obtained the dacosta and critical portions of the history and physical exam. I reviewed the chart, the team's documentation, and discussed the patient care with the team. I agree with the team's medical decision making and have edited the note to reflect my clinical findings and my assessment and plan. MD Charan Documented By: Loreta Lawrence DO, RES 10/10/23 1 004 Signed By: <Electronically signed by DO JOSE Lawrence> 10/10/23 1056 <Electronically signed by Yesi Murphy MD> 10/10/23 1314 [facility] Work Phone: 1([phone]) 905-877202-20-2024 Progress note Author Gigi Cooper [facility] October 10, 2023 12:50pm Note Date/Time October 10, 2023 12:51pm [facility] [address] [place] [address] Nephrology Progress Note Signed Patient: Nicole Lora MR#: [id number] 29 : 1960 Acct:[id number] Age/Sex: 63 / M Adm Date: 4 Loc: Room: [address] [place] [address] Type: ADM IN Attending Dr: Yesi Murphy MD Copies to: ~ Date of Service: 10/10/2023 Subjective Subjective Narrative: This is a 63-year-old male patient with a past medical history of CHF with preserved ejection fraction, asthma, COPD, chronic respiratory failure on 4 L/min at home, type 2 diabetes, hyperlipidemia, BPH with urinary retention with chronic Elliott catheter, morbid obesity. Patient presented to the emergency roomfor body anasarca and worsening shortness of breath. Patient has shortness of breath at baseline but has been getting worse for the last few days. In the emergency room he was found to be hypoxic with oxygen saturation 75%. Patient said he has been compliant with low- salt diet and with his home diuretics. Patient said he has been sleeping on the recliner at home for the last few days. Patient has hard time sleeping from restless leg syndrome. Chest x-ray showed cardiomegaly with interstitial changes along with scarring and/or atelectasis ofthe left side lab revealed creatinine 1.86 mg deciliter from baseline 1.5, BUN 53, potassium 5.6 Kos 243. UA revealed 3 RBCs, protein 100 mg deciliter. Patient was given 1 dose of Lasix at admission and started on DuoNeb and Solu-Medrol. Patient was also given 1 dose of Lokelma for hyperkalemia .patient was admitted for COPD/CHF exacerbation. Patient was placed on Lasix 40 mg twice daily and acetazolamide 500 mg IV daily patient metolazone 5 mg x1. Serum creatinine this morning 1.5 mg deciliter. Patient produced 8.2 L of urine in the last 24 hours. Patient has Elliott catheter. Blood pressure this morning 144/76. Home Norvasc is on hold. Denied NSAID use. No recent IV contrast exposure. Patient came with a Elliott catheter in place. He has been following with urology clinic Interval history Patient was seen and examined in his room. Body edema is improving slowly. Patient last 10 pounds in the last 24 hours. He made 6.6 L urine output. Remains on Lasix 40 mg IV twice daily. Acetazolamide was stopped yesterday. Patient continues to be on 3 to 4 L nasal cannula. Blood pressure has improved with the starting hydralazine 50 mg twice daily. Continues to have Elliott catheter. Patient presented to the hospital with Elliott catheter in place, acute urine retention. He follows with urology clinic as outpatient No nausea no vomiting. No chest pain. No cough Exam Physical Exam Vital Signs: Temp Pulse Resp BP Pulse Ox O2 Del Method O2 Flow Rate 97.5 F L 70 18 148/74 H 95 Nasal Cannula 4 02/20/24 11:44 10/10/23 11:44 10/10/23 11:44 10/10/23 11:44 10/10/23 11:44 10/10/23 11:44 10/10/23 11:44 FiO2 35 10/08/23 11:53 Narrative: General: No acute distress Head :atraumatic normocephalic Eyes: PERRLA. Neck: no JVD no bruit. Heart: S1-S2. RRR Respiratory: Decreased breath sounds bilaterally due to body habitus. No wheezing no crackles Abdomen: Soft, positive bowel sounds,no tenderness. Neurology: Awake alert oriented x3. No focal deficits Extremity. No cyanosis. +2 edema of lower extremity Skin: No skin rash Elliott catheter in place which is draining light yellow urine Objective Intake and Output I&O: Intake & Output 10/07/23 10/08/23 10/09/23 10/10/23 23:59 23:59 23:59 23:59 Intake Total 1630 / 1630 750 / 750 1610 / 1610 300 / 300 Output Total 4250 / 4250 3475 / 3475 76955 / 97732 900 / 900 Balance -2620 / -2620 -2725 / -2725 -9465 / -9465 -600 / -600 Weight 335 lb 15.752 oz 331 lb 9.204 oz 317 lb 10.978 oz 307 lb 15.772 oz Meds and Allergies Meds: Active Medications Acetaminophen (Acetaminophen 500 Mg Tablet) 1,000 mg PO Q6HR PRN PRN Reason: Pain Scale 1 - 3 or fever Stop: 10/06/24 01:57 Last Admin: 10/09/23 21:48 Dose: 1,000 mg Atorvastatin Calcium (Atorvastatin 40 Mg Tablet) 40 mg PO DAILY [facility] Stop: 10/09/24 08:59 Last Admin: 10/10/23 08:35 Dose: 40 mg Budesonide/Formoterol Fumarate (Budesonide/Formoterol 160-4.5 Mcg 60 Puff/6 Gm Hfa.Aer.Ad) 2 puff INHALATION Q12HR.10A.10P [facility] Stop: 10/08/24 21:59 Last Admin: 10/10/23 10:19 Dose: 2 puff Dextrose (Dextrose 50% In Water 25 Gm/50 Ml Syringe) 0 gm IV-PUSH PRN PRN PRN Reason: Hypoglycemia Stop: 10/06/24 02:05 Furosemide (Furosemide 40 Mg/4 Ml Vial) 40 mg IV-PUSH BID@0800,1600 [facility] Stop: 10/06/24 07:59 Last Admin: 10/10/23 08:35 Dose: 40 mg Gabapentin (Gabapentin 600 Mg Tablet) 600 mg PO BID [facility] Stop: 10/06/24 11:59 Last Admin: 10/10/23 08:35 Dose: 600 mg Glucose (Dextrose 40% Gel 15 Gm Tube) 0 gm PO PRN PRN PRN Reason: Hypoglycemia Stop: 10/06/24 02:05 Heparin Sodium (Porcine) (Heparin 5,000 Unit/Ml Vial) 5,000 unit SUBCUT Q8HR [facility] Stop: 10/06/24 05:59 Last Admin: 10/10/23 05:49 Dose: 5,000 unit Hydralazine HCl (Hydralazine 50 Mg Tablet) 50 mg PO BID [facility] Stop: 10/08/24 08:59 Last Admin: 10/10/23 08:36 Dose: 50 mg Insulin Aspart (Insulin Aspart 300 Units/3 Ml Insuln.Pen) 0 units SUBCUT TID.WM.HS [facility]; Protocol Stop: 10/06/24 07:59 Last Admin: 10/10/23 11:50 Dose: 3 units Insulin Glargine (Insulin Glargine 300 Units/3 Ml Insuln.Pen) 20 units SUBCUT BID [facility] Stop: 10/07/24 20:59 Last Admin: 10/10/23 08:37 Dose: 20 units Naloxone HCl (Naloxone Hcl 0.4 Mg/Ml Vial) 0.1 mg IV-PUSH Q2M PRN PRN Reason: Opioid Reversal Stop: 10/06/24 01:57 Oxycodone HCl (Oxycodone Ir 5 Mg Tablet) 5 mg PO Q6HR PRN PRN Reason: Pain Scale 4 - 7 Last Admin: 10/10/23 08:35 Dose: 5 mg Pantoprazole Sodium (Pantoprazole 40 Mg Tablet.Dr) 40 mg PO DAILY [facility] Stop: 10/09/24 08:59 Last Admin: 10/10/23 08:35 Dose: 40 mg Ropinirole HCl (Ropinirole 1 Mg Tablet) 1 mg PO QHS [facility] Stop: 10/08/24 21:59 Last Admin: 10/09/23 21:48 Dose: 1 mg Sodium Chloride (Sodium Chloride 0.9 % 10 Ml Syringe) 0 ml IV-PUSH PRN PRN PRN Reason: Flush Stop: 10/05/24 20:20 Last Admin: 10/08/23 16:49 Dose: 10 ml Sodium Chloride (Sodium Chloride 0.9 % 10 Ml Syringe) 0 ml IV-PUSH QSHIFT JIMMIE Stop: 10/06/24 05:59 Last Admin: 10/10/23 05:49 Dose: 10 ml Tamsulosin HCl (Tamsulosin 0.4 Mg Cap.Er.24h) 0.4 mg PO DAILY JIMMIE Stop: 10/09/24 08:59 Last Admin: 10/10/23 08:35 Dose: 0.4 mg Allergies Penicillins Allergy (Verified 10/06/23 20:32) Rash Results Labs 10/06/23 20:35 10/10/23 06:28 Labs: 10/10/23 10/10/23 06:28 09:35 BUN 45 H Creatinine 1.52 H Urine Color Yellow Urine Appearance Clear Urine pH 5.0 Ur Specific [place] 1.008 Urine Protein 30 H Urine Glucose (UA) Normal Urine Ketones Negative Urine Occult Blood Negative Urine Nitrite Negative Ur Leukocyte Esterase Negative Urine RBC None seen Urine WBC None seen Urine Bacteria None seen Radiology Impressions Impressions - last 24 hours: Any impression(s) listed above is documentation that was entered by the reading physician into a diagnostic report(s) for Nicole Lora. I have reviewed the report(s) and am incorporating any findings in the treatment plan of this patient where applicable. A&P - Nephrology Assessment/Plan (1) AMY (acute kidney injury): Plan: Acute kidney injury is likely prerenal from cardiorenal syndrome. Patient presented with worsening hypoxia and body anasarca. Chest x-ray showed CHF changes. Patient responding excellently to the current diuretics dose. UA revealed 100 protein and RBCs 5-9. Patient likely has diabetic nephropathy at baseline (2) CKD (chronic kidney disease) stage 3, GFR 30-59 ml/min: Plan: Patient has diabetic nephropathy at baseline. Baseline serum creatinine around 1.5 mg deciliter. UA revealed 100 protein (3) Hyperkalemia: Plan: Patient presented with potassium of 5.6 mmol/L. This has improved with Lokelma and diuresis. Potassium this morning 3.8 (4) Hypertension: Plan: Blood pressure slightly above the target. Home Norvasc is on hold. Patient only on diuretics (5) Acute on chronic respiratory failure with hypoxia and hypercapnia: Plan: Patient has a chronic respiratory failure on 4 L nasal cannula. Patient presented with hypoxia and body edema. Patient is being treated for CHF exacerbation (6) Urine retention: Plan: Patient presented with Elliott catheter in place. He does follow with urology clinic. I am not sure if the patient has neurogenic bladder from diabetic neuropathy Plan - Serum creatinine remains at baseline 1.5 mg deciliter despite significant diuresis. - I will continue same of Lasix 40 mg twice daily -Continue Flomax. Continue Elliott catheter for acute urine retention and accurate urine documentation -There is no need for renal placement therapy -Continue hydralazine 50 mg twice daily. continue to monitor blood pressure -Serum potassium level normalized. Will continue to monitor potassium level with intense diuresis. -Continue CHF core measures. Continue daily weights with low-salt diet. -Check renal function panel in a.m. Renal team will continue to follow. Call if any question or concern Documented By: Gigi Cooper MD 10/10/23 1248 Signed By: <Electronically signed by Gigi Cooper MD> 10/10/23 1250 [facility] Work Phone: 1(731) 408-344202-19-2024 Progress note Author Hood Zacarias [facility] October 09, 2023 5:43pm Note Date/Time October 08, 2023 2:13pm [facility] [address] [place] [address] Event Note Signed Patient: Nicole Lora MR#: [id number] 29 : 1960 Acct:[id number] Age/Sex: 63 / M Adm Date: 4 Loc: Room: [address] [place] [address] Type: ADM IN Attending Dr: Yesi Murphy MD Copies to: MD Mounika Joseph MD, MD~ Status Event Note Event Note DATE OF EVENT: 10/09/23 TIME OF EVENT: 14:13 EVENT DETAILS: Consult was received and chart was reviewed. Patient presented with fluid overload/CHF with edema. He sleeps on recliner at home. He was hypoxemic on admission. Chest x-ray was suggestive of cardiomegaly and failure. Patient used to be on low-dose furosemide 20 mg orally once a day at home, he was switched to furosemide 40 mg IV twice a day and had 1 dose of metolazone. He also was placed on acetazolamide by hospitalist team. Urine output has increased more than 4 L overnight. Fluid balance is -3375 mL. Potassium is improving with diuresis I will check spot urine for protein and creatinine to rule out nephrotic syndrome that may contribute to edema. Patient has diabetes. Will obtain bilateral kidney ultrasound. Patient will be seen tomorrow by Dr. Cooper TIME W/PATIENT (# MINS): 10 Documented By: Hood Zacarias MD 10/08/23 1408 Signed By: <Electronically signed by MD Hood Zacarias> 10/09/23 1993 [facility] Work Phone: [phone] 988-363402-19-2024 Progress note Author Yesi Murphy [facility] October 09, 2023 2:16pm Note Date/Time October 09, 2023 1:59pm [facility] [address] [place] [address] Hospitalist Progress Note Signed Patient: Nicole Lora MR#: [id number] 29 : 1960 Acct:[id number] Age/Sex: 63 / M Adm Date: 4 Loc: Room: [address] [place] [address] Type: ADM IN Attending Dr: Yesi Murphy MD Copies to: ~ Date of Service: 10/09/2023 Subjective Subjective Narrative: Patient is feeling better, but still has some shortness of breath. No chest pain. Lower extremity edema improved but still has 3+ pitting edema Elliott catheter draining clear urine Physical exam: General -awake, alert, oriented ?3, not in acute distress, sitting in the chair Cardiovascular -S1 with S2, no murmurs, no rubs, no gallops Pulmonary -diminished breath sounds bilaterally Gastrointestinal - abdomen is soft, nondistended, nontender, bowel sounds positive, there is no rigidity, no rebound Extremities -3+ edema Neurological -no focal neurological dysfunction noted Exam Physical Exam Vital Signs: Temp Pulse Resp BP Pulse Ox O2 Del Method O2 Flow Rate 36.4 C L 73 18 139/78 93 L Nasal Cannula 3.5 10/09/23 07:35 10/09/23 11:58 10/09/23 11:58 10/09/23 11:58 10/09/23 11:58 10/09/23 12:00 10/09/23 12:00 FiO2 35 10/08/23 11:53 Objective Lab Results 10/06/23 20:35 10/09/23 06:30 Microbiology Results Microbiology 10/06/23 22:05 Blood - Right Antecubital Blood Culture - Preliminary No Growth 2 Days 10/06/23 22:13 Blood - Left Hand Blood Culture - Preliminary No Growth 2 Days Meds Allergies and Active Meds Allergies Penicillins Allergy (Verified 10/06/23 20:32) Rash Active Meds: Active Medications Generic Name Dose Route Start Last Admin Trade Name Freq PRN Reason Stop Dose Admin Acetaminophen 1,000 mg 10/07/23 01:58 Acetaminophen 500 Mg Tablet PO 10/06/24 01:57 Q6HR PRN Pain Scale 1 - 3 or fever Dextrose 0 gm 10/07/23 02:06 Dextrose 50% In Water 25 Gm/50 Ml Syringe IV-PUSH 10/06/24 02:05 PRN PRN Hypoglycemia Furosemide 40 mg 10/07/23 08:00 10/09/23 07:49 Furosemide 40 Mg/4 Ml Vial IV-PUSH 10/06/24 07:59 40 mg BID@0800,1600 JIMMIE Administration Gabapentin 600 mg 10/07/23 12:00 10/09/23 07:50 Gabapentin 600 Mg Tablet PO 10/06/24 11:59 600 mg BID JIMMIE Administration Glucose 0 gm 10/07/23 02:06 Dextrose 40% Gel 15 Gm Tube PO 10/06/24 02:05 PRN PRN Hypoglycemia Heparin Sodium (Porcine) 5,000 unit 10/07/23 06:00 10/09/23 13:31 Heparin 5,000 Unit/Ml Vial SUBCUT 10/06/24 05:59 5,000 unit Q8HR JIMMIE Administration Hydralazine HCl 50 mg 10/09/23 09:00 10/09/23 08:04 Hydralazine 50 Mg Tablet PO 10/08/24 08:59 50 mg BID JIMMIE Administration Insulin Aspart 0 units 10/07/23 08:00 10/09/23 11:52 Insulin Aspart 300 Units/3 Ml Insuln.Pen SUBCUT 10/06/24 07:59 3 units TID.WM.HS JIMMIE Administration Protocol Insulin Glargine 20 units 10/08/23 21:00 10/09/23 07:57 Insulin Glargine 300 Units/3 Ml Insuln.Pen SUBCUT 10/07/24 20:59 20 units BID JIMMIE Administration Morphine Sulfate 2 mg 10/07/23 01:58 10/08/23 01:40 Morphine Sulfate 2 Mg/Ml Vial IV-PUSH 2 mg Q4H PRN Administration Pain Scale 8 - 10 Naloxone HCl 0.1 mg 10/07/23 01:58 Naloxone Hcl 0.4 Mg/Ml Vial IV-PUSH 10/06/24 01:57 Q2M PRN Opioid Reversal Oxycodone HCl 5 mg 10/07/23 01:58 10/09/23 11:47 Oxycodone Ir 5 Mg Tablet PO 5 mg Q6HR PRN Administration Pain Scale 4 - 7 Sodium Chloride 0 ml 10/06/23 20:21 10/08/23 16:49 Sodium Chloride 0.9 % 10 Ml Syringe IV-PUSH 10/05/24 20:20 10 ml PRN PRN Administration Flush Sodium Chloride 0 ml 10/07/23 06:00 10/09/23 06:31 Sodium Chloride 0.9 % 10 Ml Syringe IV-PUSH 10/06/24 05:59 10 ml QSHIFT JIMMIE Administration A&P - Hospitalist Assessment/Plan (1) Acute on chronic respiratory failure with hypoxia and hypercapnia: (2) CHF (congestive heart failure): (3) Obesity hypoventilation syndrome: (4) COPD (chronic obstructive pulmonary disease): (5) Diabetes mellitus, type 2: (6) Hypertension: (7) AMY (acute kidney injury): (8) CKD (chronic kidney disease) stage 3, GFR 30-59 ml/min: (9) Urine retention: Plan Acute on chronic respiratory failure with hypoxia and hypercapnia -due to suspected acute on chronic heart failure with preserved ejection fraction 65% Patient is using 4 L nasal cannula at home, yesterday he required Vapotherm, currently on 4 L, saturating 90% Still complains of being shortness of breath and significant lower extremity edema Continue with diuretic therapy, good negative balance Obesity hypoventilation syndrome COPD restart bronchodilators AMY on CKD stage III?current creatinine seems to be around baseline. Nephrology consulted Hyperkalemia - Improved, K level is 5.0 Diabetes mellitus type 2 continue with insulin therapy Urinary retention status post Elliott catheter placement 2 weeks ago, has an appointment with urologist as outpatient DVT PPx-SCDs, Madyson wrap's, heparin Diet order-1800 ADA, heart healthy CODE STATUS-full code Documented By: Yesi Murphy MD 10/09/23 1359 Signed By: <Electronically signed by Yesi Murphy MD> 10/09/23 1416 [facility] Work Phone: 1(376) 784-833102-19-2024 Consult note Author Gigi Cooper [facility] October 09, 2023 11:35am Note Date/Time October 09, 2023 11:35am [facility] [address] [place] [address] Nephrology Consult Note Signed Patient: Nicole Lora MR#: [id number] 29 : 1960 Acct:[id number] Age/Sex: 63 / M Adm Date: 4 Loc: Room: [address] [place] [address] Type: ADM IN Attending Dr: Yesi Murphy MD Copies to: MD Mounika Patricio MD, MD~ Providers Consult Date: 10/09/23 Requesting Provider: Yesi Murphy MD Primary Care Provider: Mounika Brooke MD [facility] Reason for Consult: Acute kidney injury on CKD with a fluid overload History of Present Illness: This is a 63-year-old male patient with a past medical history of CHF with preserved ejection fraction, asthma, COPD, chronic respiratory failure on 4 L/min at home, type 2 diabetes, hyperlipidemia, BPH with urinary retention with chronic Elliott catheter, morbid obesity. Patient presented to the emergency roomfor body anasarca and worsening shortness of breath. Patient has shortness of breath at baseline but has been getting worse for the last few days. In the emergency room he was found to be hypoxic with oxygen saturation 75%. Patient said he has been compliant with low- salt diet and with his home diuretics. Patient said he has been sleeping on the recliner at home for the last few days. Patient has hard time sleeping from restless leg syndrome. Chest x-ray showed cardiomegaly with interstitial changes along with scarring and/or atelectasis ofthe left side lab revealed creatinine 1.86 mg deciliter from baseline 1.5, BUN 53, potassium 5.6 Kos 243. UA revealed 3 RBCs, protein 100 mg deciliter. Patient was given 1 dose of Lasix at admission and started on DuoNeb and Solu-Medrol. Patient was also given 1 dose of Lokelma for hyperkalemia .patient was admitted for COPD/CHF exacerbation. Patient was placed on Lasix 40 mg twice daily and acetazolamide 500 mg IV daily patient metolazone 5 mg x1. Serum creatinine this morning 1.5 mg deciliter. Patient produced 8.2 L of urine in the last 24 hours. Patient has Elliott catheter. Blood pressure this morning 144/76. Home Norvasc is on hold. Denied NSAID use. No recent IV contrast exposure. Patient came with a Elliott catheter in place. He has been following with urology clinic Review of Systems Review of Systems Review of systems: 12 system review is negative except mild shortness of breath and body anasarca [facility] Medical History (Updated 10/09/23 @ 11:30 by Gigi Coopre MD) Left toe amputee Asthma Problem List clean-up per request of Phys. EHR Cmte Amputation of one or more toes All toes to left foot and second metatarsal to right foot Diabetes mellitus, type 2 Problem List clean-up per request of Phys. EHR Cmte Social History Smoking Status: Never smoker Substance Use Type: None Meds Medications & Allergies Allergies Penicillins Allergy (Verified 10/06/23 20:32) Rash Home Medications budesonide-formoterol HFA 160 mcg-4.5 mcg/actuation aerosol inhaler (Symbicort) 2 puff inhalation BID 06/19/23 [History Confirmed 10/07/23] gabapentin 600 mg tablet 600 mg PO TID 06/19/23 [History Confirmed 10/06/23] insulin lispro 100 unit/mL subcutaneous solution (Humalog U-100 Insulin) 1 sliding scale dose 06/19/23 [History Confirmed 06/19/23] linagliptin 2.5 mg-metformin 1,000 mg tablet (Jentadueto) 1 tab PO BID 10/30/23 [History Confirmed 10/06/23] pantoprazole 40 mg tablet,delayed release 40 mg PO DAILY 06/19/23 [History Confirmed 10/07/23] ropinirole 1 mg tablet 1 mg PO QHS 06/19/23 [History Confirmed 10/06/23] furosemide 20 mg tablet (Lasix) 20 mg PO DAILY #30 tabs 06/21/23 [Rx Confirmed 10/06/23] insulin glargine U-300 conc 300 unit/mL (3 mL) subcutaneous pen (Toujeo Max U- 300 SoloStar) 35 unit (0.1167 mL) subcut BID #3 mL 06/21/23 [Rx Confirmed 10/06/23] amlodipine 10 mg tablet 10 mg PO DAILY 10/06/23 [History Confirmed 10/07/23] atorvastatin 40 mg tablet 40 mg PO DAILY 10/06/23 [History Confirmed 10/06/23] cephalexin 500 mg capsule 500 mg PO QID 10/06/23 [History Confirmed 10/06/23] tamsulosin 0.4 mg capsule 0.4 mg PO DAILY 10/06/23 [History Confirmed 10/06/23] tizanidine 2 mg tablet 2 mg PO Q8HR 10/06/23 [History Confirmed 10/06/23] Active Medications: Active Medications Acetaminophen (Acetaminophen 500 Mg Tablet) 1,000 mg PO Q6HR PRN PRN Reason: Pain Scale 1 - 3 or fever Stop: 10/06/24 01:57 Dextrose (Dextrose 50% In Water 25 Gm/50 Ml Syringe) 0 gm IV-PUSH PRN PRN PRN Reason: Hypoglycemia Stop: 10/06/24 02:05 Furosemide (Furosemide 40 Mg/4 Ml Vial) 40 mg IV-PUSH BID@0800,1600 [facility] Stop: 10/06/24 07:59 Last Admin: 10/09/23 07:49 Dose: 40 mg Gabapentin (Gabapentin 600 Mg Tablet) 600 mg PO BID JIMMIE Stop: 10/06/24 11:59 Last Admin: 10/09/23 07:50 Dose: 600 mg Glucose (Dextrose 40% Gel 15 Gm Tube) 0 gm PO PRN PRN PRN Reason: Hypoglycemia Stop: 10/06/24 02:05 Heparin Sodium (Porcine) (Heparin 5,000 Unit/Ml Vial) 5,000 unit SUBCUT Q8HR [facility] Stop: 10/06/24 05:59 Last Admin: 10/09/23 06:30 Dose: 5,000 unit Hydralazine HCl (Hydralazine 50 Mg Tablet) 50 mg PO BID [facility] Stop: 10/08/24 08:59 Last Admin: 10/09/23 08:04 Dose: 50 mg Insulin Aspart (Insulin Aspart 300 Units/3 Ml Insuln.Pen) 0 units SUBCUT TID.WM.HS [facility]; Protocol Stop: 10/06/24 07:59 Last Admin: 10/09/23 07:58 Dose: Not Given Insulin Glargine (Insulin Glargine 300 Units/3 Ml Insuln.Pen) 20 units SUBCUT BID [facility] Stop: 10/07/24 20:59 Last Admin: 10/09/23 07:57 Dose: 20 units Morphine Sulfate (Morphine Sulfate 2 Mg/Ml Vial) 2 mg IV-PUSH Q4H PRN PRN Reason: Pain Scale 8 - 10 Last Admin: 10/08/23 01:40 Dose: 2 mg Naloxone HCl (Naloxone Hcl 0.4 Mg/Ml Vial) 0.1 mg IV-PUSH Q2M PRN PRN Reason: Opioid Reversal Stop: 10/06/24 01:57 Oxycodone HCl (Oxycodone Ir 5 Mg Tablet) 5 mg PO Q6HR PRN PRN Reason: Pain Scale 4 - 7 Last Admin: 10/09/23 06:41 Dose: 5 mg Sodium Chloride (Sodium Chloride 0.9 % 10 Ml Syringe) 0 ml IV-PUSH PRN PRN PRN Reason: Flush Stop: 10/05/24 20:20 Last Admin: 10/08/23 16:49 Dose: 10 ml Sodium Chloride (Sodium Chloride 0.9 % 10 Ml Syringe) 0 ml IV-PUSH QSHIFT [facility] Stop: 10/06/24 05:59 Last Admin: 10/09/23 06:31 Dose: 10 ml Exam Physical Exam Vital Signs: Temp Pulse Resp BP Pulse Ox O2 Del Method O2 Flow Rate 97.5 F L 70 22 144/76 H 95 Nasal Cannula 3.5 10/09/23 07:35 10/09/23 07:35 10/09/23 07:35 10/09/23 07:35 10/09/23 07:35 10/09/23 08:00 10/09/23 08:00 FiO2 35 10/08/23 11:53 Narrative: General: No acute distress Head :atraumatic normocephalic Eyes: PERRLA. Neck: no JVD no bruit. Heart: S1-S2. RRR Respiratory: Decreased breath sounds bilaterally due to body habitus. No wheezing no crackles Abdomen: Soft, positive bowel sounds,no tenderness. Neurology: Awake alert oriented x3. No focal deficits Extremity. No cyanosis. +2 edema of lower extremity Skin: No skin rash Elliott catheter in place which is draining yellow urine Results Labs 10/06/23 20:35 10/09/23 06:30 Labs: 10/09/23 06:30 BUN 46 H Creatinine 1.50 H Radiology Impressions Impressions - last 24 hours: Impressions Renal Ultrasound 10/08/23 14:08 IMPRESSION: No acute findings. Impression dictated by: Reinaldo Cheema Jr., D.OSue10/08/2023 2:58 PM Dictation Location: [place] [address] Any impression(s) listed above is documentation that was entered by the reading physician into a diagnostic report(s) for Nicole Lora. I have reviewed the report(s) and am incorporating any findings in the treatment plan of this patient where applicable. A&P - Nephrology Assessment/Plan (1) AMY (acute kidney injury): Plan: Acute kidney injury is likely prerenal from cardiorenal syndrome. Patient presented with worsening hypoxia and body anasarca. Chest x-ray showed CHF changes. Patient responding excellently to the current diuretics dose. UA revealed 100 protein and RBCs 5-9. Patient likely has diabetic nephropathy at baseline (2) CKD (chronic kidney disease) stage 3, GFR 30-59 ml/min: Plan: Patient has diabetic nephropathy at baseline. Baseline serum creatinine around 1.5 mg deciliter. UA revealed 100 protein (3) Hyperkalemia: Plan: Patient presented with potassium of 5.6 mmol/L. This has improved with Lokelma and diuresis. Potassium this morning 3.8 (4) Hypertension: Plan: Blood pressure slightly above the target. Home Norvasc is on hold. Patient only on diuretics (5) Acute on chronic respiratory failure with hypoxia and hypercapnia: Plan: Patient has a chronic respiratory failure on 4 L nasal cannula. Patient presented with hypoxia and body edema. Patient is being treated for CHF exacerbation (6) Urine retention: Plan: Patient presented with Elliott catheter in place. He does follow with urology clinic. I am not sure if the patient has neurogenic bladder from diabetic neuropathy Plan - Serum creatinine 1.5 mg deciliter which is his baseline. I will stop acetazolamide. I will continue same of Lasix 40 mg twice daily -Continue Flomax. Continue Elliott catheter for acute urine retention and accurate urine documentation -There is no need for renal placement therapy -I will start the patient on hydralazine 50 mg twice daily. -Serum potassium level normalized. Will continue to monitor potassium level with intense diuresis. -Continue CHF core measures. Continue daily weights with low-salt diet. -Check renal function panel in a.m. Thank you for allow me to participate in Mr. Lora's care. Renal team will continue to follow. Call if any question or concern Documented By: Gigi Cooper MD 10/09/23 1123 Signed By: <Electronically signed by Gigi Cooper MD> 10/09/23 1137 [facility] Work Phone: 1(860) 568-705102-18-2024 Progress note Author Ramses Masters [facility] October 08, 2023 4:03pm Note Date/Time October 08, 2023 12:52pm [facility] [address] [place] [address] Hospitalist Progress Note Signed with Jazzy Patient: Nicole Lora MR#: [id number] 29 : 1960 Acct:[id number] Age/Sex: 63 / M Adm Date: 4 Loc: Room: [address] [place] [address] Type: ADM IN Attending Dr: Ramses Masters MD Copies to: ~ ADDENDUM1 I have talked to the patient daughter and explained the current work up and treatment plan. I explained the possibility of heart failure with cardiorenal component and signs of volume overload requiring aggressive diuresis. The pateint has been in and out of the hospital frequently according to the daughterand he is usually seen at [facility]. He was recently admitted in August for pneumonia, volume overload and sepsis and now he is back again. The daughter requested the patient to be transferred to [facility]. I explained to thedaughter that at this time the patient is improving and would not have much to be offered more at [facility] but the daughter insistent to have him transferred and that she would feel more comfortable about that. I contacted the [facility] transfer center and spoke with Dr. medeiros from cardiology. The patient was accepted to the hospitalist service to Dr. Marcus Longoria Addendum Documented By: Ramses Masters MD 10/08/23 160 Addendum Signed By: <Electronically signed by Ramses Masters MD> 10/08/23 1603 Date of Service: 10/08/2023 Subjective Subjective Narrative: HPI : Mr. Lora is a 63-year-old male with a PMH of congestive heart failure, asthma, COPD, chronic respiratory failure on 4 L nasal cannula at all times, T2DM, HLD, neuropathy, restless legs, BPH that presents to the emergency room for retaining fluid. Upon entry to the room patient has his oxygen off, SpO2 75%, placed simple mask back on his face. Patient states for the last week he has been sleeping in a recliner, states he normally sleeps in bed with quite a few pillows. He also states had increased difficulty putting his shoes on. He reports that he does wear his oxygen at home?4 L at all times. He also reports he has been taking his water pills as directed at home, however his legs keep swelling. He denies chest pain, states he is short of breath all the time. Denies fever or chills, nausea or vomiting. He does complain of chronic pain especially in aches to the right lower extremity that goes up into his hip, reports that he has had imaging done of his hip and he said that nothing was wrong. He reports he has never smoked, he does not drink alcohol. Interval history Pt feels better with improved edema. Still requiring O2 by nasal mask. No chest pain or palpitations. Exam Physical Exam Vital Signs: Temp Pulse Resp BP Pulse Ox O2 Del Method O2 Flow Rate 97.4 F L 71 20 145/73 H 95 Venturi Mask 10 10/08/23 11:48 10/08/23 11:48 10/08/23 11:48 10/08/23 11:48 10/08/23 11:48 10/08/23 11:53 10/08/23 11:53 FiO2 35 10/08/23 11:53 Narrative: CONST- Appears well -developed and well nourished. Morbidly obese- BMI 45.7, NECK-positive JVD. CARDIAC-normal rate, regular rhythm, S1 & S2. PULM-diminished, fine crackles bilateral posterior bases, mildly dyspneic while talking ABD - Soft. Bowel sounds are normal. Softly distended. No tenderness EXTREM- lymphedema to LLE, 4+ pitting edema to RLE, nontender MS- MAEX4 spontaneously, generalized weakness NEURO- A&Ox3 speech clear and tongue midline, equal facial symmetry, no focal motor deficits Objective Lab Results 10/06/23 20:35 10/08/23 05:46 Microbiology Results Microbiology 10/06/23 22:05 Blood - Right Antecubital Blood Culture - Preliminary No Growth 1 Day 10/06/23 22:13 Blood - Left Hand Blood Culture - Preliminary No Growth 1 Day Meds Allergies and Active Meds Allergies Penicillins Allergy (Verified 10/06/23 20:32) Rash Active Meds: Active Medications Generic Name Dose Route Start Last Admin Trade Name Freq PRN Reason Stop Dose Admin Acetaminophen 1,000 mg 10/07/23 01:58 Acetaminophen 500 Mg Tablet PO 10/06/24 01:57 Q6HR PRN Pain Scale 1 - 3 or fever Acetazolamide 500 mg 10/08/23 12:40 Acetazolamide 500 Mg/5 Ml Vial IV-PUSH 10/11/23 12:39 DAILY JIMMIE Dextrose 0 gm 10/07/23 02:06 Dextrose 50% In Water 25 Gm/50 Ml Syringe IV-PUSH 10/06/24 02:05 PRN PRN Hypoglycemia Furosemide 40 mg 10/07/23 08:00 10/08/23 07:50 Furosemide 40 Mg/4 Ml Vial IV-PUSH 10/06/24 07:59 40 mg BID@0800,1600 JIMMIE Administration Gabapentin 600 mg 10/07/23 12:00 10/08/23 08:38 Gabapentin 600 Mg Tablet PO 10/06/24 11:59 600 mg BID JIMMIE Administration Glucose 0 gm 10/07/23 02:06 Dextrose 40% Gel 15 Gm Tube PO 10/06/24 02:05 PRN PRN Hypoglycemia Heparin Sodium (Porcine) 5,000 unit 10/07/23 06:00 10/08/23 05:43 Heparin 5,000 Unit/Ml Vial SUBCUT 10/06/24 05:59 5,000 unit Q8HR JIMMIE Administration Insulin Aspart 0 units 10/07/23 08:00 10/08/23 11:52 Insulin Aspart 300 Units/3 Ml Insuln.Pen SUBCUT 10/06/24 07:59 10 units TID.WM.HS JIMMIE Administration Protocol Insulin Glargine 20 units 10/08/23 21:00 Insulin Glargine 300 Units/3 Ml Insuln.Pen SUBCUT 10/07/24 20:59 BID JIMMIE Morphine Sulfate 2 mg 10/07/23 01:58 10/08/23 01:40 Morphine Sulfate 2 Mg/Ml Vial IV-PUSH 2 mg Q4H PRN Administration Pain Scale 8 - 10 Naloxone HCl 0.1 mg 10/07/23 01:58 Naloxone Hcl 0.4 Mg/Ml Vial IV-PUSH 10/06/24 01:57 Q2M PRN Opioid Reversal Oxycodone HCl 5 mg 10/07/23 01:58 10/07/23 08:49 Oxycodone Ir 5 Mg Tablet PO 5 mg Q6HR PRN Administration Pain Scale 4 - 7 Sodium Chloride 0 ml 10/06/23 20:21 10/08/23 07:50 Sodium Chloride 0.9 % 10 Ml Syringe IV-PUSH 10/05/24 20:20 10 ml PRN PRN Administration Flush Sodium Chloride 0 ml 10/07/23 06:00 10/08/23 05:44 Sodium Chloride 0.9 % 10 Ml Syringe IV-PUSH 10/06/24 05:59 10 ml QSHIFT JIMMIE Administration Sterile Water 5 ml 10/08/23 12:39 Water For Injection,Sterile 10 Ml Vial INJECTION 10/07/24 12:38 PRN PRN Reconstitute acetaZOLAMIDE A&P - Hospitalist Assessment/Plan (1) Acute on chronic respiratory failure with hypoxia and hypercapnia: (2) CHF (congestive heart failure): (3) Obesity hypoventilation syndrome: (4) COPD (chronic obstructive pulmonary disease): (5) Diabetes mellitus, type 2: (6) Hypertension: (7) AMY (acute kidney injury): (8) CKD (chronic kidney disease) stage 3, GFR 30-59 ml/min: (9) Urine retention: Plan Acute on chronic respiratory failure with hypoxia and hypercapnia Acute exacerbation of CHF Obesity hypoventilation syndrome COPD - Echo reviewed, showed normal LV function - Pt had 4.7 L urine output in last 24 - HCO3, level increasing to 33 - Continue IV diuresis with Lasix 40 mg twice daily - Start IV diamox 500 mg daily for 3 dose ? Continue oxygen supplementation ? Daily weights ? Continue budesonide/formoterol AMY on CKD stage III?current creatinine seems to be around baseline. 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 -Consult nephrology to assist with diuresis Hyperkalemia - Improved, K level is 5.0 Chronic conditions?resume home meds when confirmed T2DM?needs tighter control,increase lantus to 20 units BID HTN?not currently on blood pressure medications due to hyperkalemia RLS?ropinirole BPH?tamsulosin Neuropathy?Continue gabapentin 600 mg twice a day Urine retention?continue to maintain Elliott DVT PPx-SCDs, Madyson wrap's, heparin Diet order-1800 ADA, heart healthy CODE STATUS-full code Documented By: Ramses Masters MD 10/08/23 1244 Signed By: <Electronically signed by Ramses Masters MD> 10/08/23 1252 [facility] Work Phone: 1(249) 144-955202-17-2024 Progress note Author Ramses Masters [facility] October 07, 2023 1:28pm Note Date/Time October 07, 2023 1:28pm [facility] [address] [place] [address] Hospitalist Progress Note Signed Patient: Nicole Lora MR#: [id number] [birth year] : 1960 Acct:[id number] Age/Sex: 63 / M Adm Date: 4 Loc: Room: [address] [place] [address] Type: ADM IN Attending Dr: Ramses Masters MD Copies to: ~ Date of Service: 10/07/2023 Subjective Subjective Narrative: HPI : Mr. Lora is a 63-year-old male with a PMH of congestive heart failure, asthma, COPD, chronic respiratory failure on 4 L nasal cannula at all times, T2DM, HLD, neuropathy, restless legs, BPH that presents to the emergency room for retaining fluid. Upon entry to the room patient has his oxygen off, SpO2 75%, placed simple mask back on his face. Patient states for the last week he has been sleeping in a recliner, states he normally sleeps in bed with quite a few pillows. He also states had increased difficulty putting his shoes on. He reports that he does wear his oxygen at home?4 L at all times. He also reports he has been taking his water pills as directed at home, however his legs keep swelling. He denies chest pain, states he is short of breath all the time. Denies fever or chills, nausea or vomiting. He does complain of chronic pain especially in aches to the right lower extremity that goes up into his hip, reports that he has had imaging done of his hip and he said that nothing was wrong. He reports he has never smoked, he does not drink alcohol. Interval history Patient seen and examined this morning, reports improvement of his breathing status but still have severe lower extremity edema reaching to his thighs. The patient is frustrated from his fluid buildup, he was recently admitted to the hospital as he reported for the same reason and retaining fluid back very quickly. Patient was counseled about importance of compliance with fluid intakeand diuretics, imbalance might be difficult to obtain and he has to watch his weight and volume status closely. He reports drinking about half a gallon of fluid a day, he was advised to restrict fluid intake to around 1500 cc a day Exam Physical Exam Vital Signs: Temp Pulse Resp BP Pulse Ox O2 Del Method O2 Flow Rate 97.8 F 81 20 146/69 H 93 L Venturi Mask 14 10/07/23 11:35 10/07/23 11:35 10/07/23 11:35 10/07/23 11:35 10/07/23 11:35 10/07/23 11:35 10/07/23 11:35 FiO2 35 10/07/23 11:35 Narrative: CONST- Appears well -developed and well nourished. Morbidly obese- BMI 45.7, NECK-positive JVD. CARDIAC-normal rate, regular rhythm, S1 & S2. PULM-diminished, fine crackles bilateral posterior bases, mildly dyspneic while talking ABD - Soft. Bowel sounds are normal. Softly distended. No tenderness EXTREM- lymphedema to LLE, 4+ pitting edema to RLE, nontender SKIN- W/D good turgor, redness to RLE, dressing dry and intact to left foot MS- MAEX4 spontaneously, generalized weakness NEURO- A&Ox3 speech clear and tongue midline, equal facial symmetry, no focal motor deficits PSYCH-Mood, affect, and behavior appropriate Objective Lab Results 10/06/23 20:35 10/07/23 06:51 Microbiology Results Microbiology 10/06/23 21:03 Nasopharyngeal SARS-CoV-2, Influenza & RSV (PCR) - Final Meds Allergies and Active Meds Allergies Penicillins Allergy (Verified 10/06/23 20:32) Rash Active Meds: Active Medications Generic Name Dose Route Start Last Admin Trade Name Freq PRN Reason Stop Dose Admin Acetaminophen 1,000 mg 10/07/23 01:58 Acetaminophen 500 Mg Tablet PO 10/06/24 01:57 Q6HR PRN Pain Scale 1 - 3 or fever Dextrose 0 gm 10/07/23 02:06 Dextrose 50% In Water 25 Gm/50 Ml Syringe IV-PUSH 10/06/24 02:05 PRN PRN Hypoglycemia Furosemide 40 mg 10/07/23 08:00 10/07/23 08:27 Furosemide 40 Mg/4 Ml Vial IV-PUSH 10/06/24 07:59 40 mg BID@0800,1600 JIMMIE Administration Gabapentin 600 mg 10/07/23 12:00 Gabapentin 600 Mg Tablet PO 10/06/24 11:59 BID JIMMIE Glucose 0 gm 10/07/23 02:06 Dextrose 40% Gel 15 Gm Tube PO 10/06/24 02:05 PRN PRN Hypoglycemia Heparin Sodium (Porcine) 5,000 unit 10/07/23 06:00 10/07/23 05:48 Heparin 5,000 Unit/Ml Vial SUBCUT 10/06/24 05:59 5,000 unit Q8HR JIMMIE Administration Insulin Aspart 0 units 10/07/23 08:00 10/07/23 11:37 Insulin Aspart 300 Units/3 Ml Insuln.Pen SUBCUT 10/06/24 07:59 12 units TID.WM.HS JIMMIE Administration Protocol Insulin Glargine 10 units 10/07/23 21:00 Insulin Glargine 300 Units/3 Ml Insuln.Pen SUBCUT 10/06/24 20:59 BID JIMMIE Morphine Sulfate 2 mg 10/07/23 01:58 Morphine Sulfate 2 Mg/Ml Vial IV-PUSH Q4H PRN Pain Scale 8 - 10 Naloxone HCl 0.1 mg 10/07/23 01:58 Naloxone Hcl 0.4 Mg/Ml Vial IV-PUSH 10/06/24 01:57 Q2M PRN Opioid Reversal Oxycodone HCl 5 mg 10/07/23 01:58 10/07/23 08:49 Oxycodone Ir 5 Mg Tablet PO 5 mg Q6HR PRN Administration Pain Scale 4 - 7 Sodium Chloride 0 ml 10/06/23 20:21 10/06/23 21:38 Sodium Chloride 0.9 % 10 Ml Syringe IV-PUSH 10/05/24 20:20 10 ml PRN PRN Administration Flush Sodium Chloride 0 ml 10/07/23 06:00 10/07/23 05:48 Sodium Chloride 0.9 % 10 Ml Syringe IV-PUSH 10/06/24 05:59 10 ml QSHIFT JIMMIE Administration A&P - Hospitalist Assessment/Plan (1) Acute on chronic respiratory failure with hypoxia and hypercapnia: (2) CHF (congestive heart failure): (3) Obesity hypoventilation syndrome: (4) COPD (chronic obstructive pulmonary disease): (5) Diabetes mellitus, type 2: (6) Hypertension: (7) AMY (acute kidney injury): (8) CKD (chronic kidney disease) stage 3, GFR 30-59 ml/min: (9) Urine retention: Plan Acute on chronic respiratory failure with hypoxia and hypercapnia Acute exacerbation of CHF Obesity hypoventilation syndrome COPD ? Continue IV diuresis with Lasix 40 mg twice daily - Give 1 dose of metolazone 5 mg ? Continue oxygen, patient wears 4 L at all times at home, keep SpO2 greater than 90% ? Daily weights ? Follow-up echocardiogram ? Continue budesonide/formoterol AMY on CKD stage III?current creatinine seems to be around baseline. ? Continue to monitor kidney function with diuresis Hyperkalemia -- Given 1 dose of Lokelma, follow-up kidney function this afternoon Chronic conditions?resume home meds when confirmed T2DM?needs tighter control, blood sugar running in the 300s, Lantus 10 units twice daily added with ISS coverage HTN?not currently on blood pressure medications due to hyperkalemia, awaiting 2Decho to evaluate LV function before deciding on proper medications RLS?ropinirole BPH?tamsulosin Neuropathy?resumed on gabapentin 600 mg twice a day Urine retention?continue to maintain Elliott DVT PPx-SCDs, Madyson wrap's, heparin Diet order-1800 ADA, heart healthy CODE STATUS-full code Documented By: Ramses Masters MD 10/07/23 132 Signed By: <Electronically signed by Ramses Masters MD> 10/07/23 1328 [facility] Work Phone: [phone] History and physical note Author Tera Nevarez [facility] October 07, 2023 4:13am Note Date/Time October 07, 2023 2:10am [facility] [address] [place] [address] Hospitalist H&P Signed Patient: Nicole Lora MR#: [id number] [birth year] : 1960 Acct:[id number] Age/Sex: 63 / M Adm Date: 4 Loc: Room: [address] [place] [address] Type: ADM IN Attending Dr: Tera Nevarez DO Copies to: Mounika Quinn, URBANO Nevarez, ~ HPI DATE OF EXAMINATION: 10/07/23 CHIEF COMPLAINT: retaining fluid in my legs and such HISTORY OF PRESENT ILLNESS: Mr. Lora is a 63-year-old male with a PMH of congestive heart failure, asthma, COPD, chronic respiratory failure on 4 L nasal cannula at all times, T2DM, HLD, neuropathy, restless legs, BPH that presents to the emergency room tonight for retaining fluid. Upon entry to the room patient has his oxygen off, SpO2 75%, placed simple mask back on his face. Patient states for the last week he has been sleeping in a recliner, states he normally sleeps in bed with quite a few pillows. He also states had increased difficulty putting his shoes on. He reports that he does wear his oxygen at home?4 L at all times. He also reports he has been taking his water pills as directed at home, however his legs keep swelling. He denies chest pain, states he is short of breath all the time. Denies fever or chills, nausea or vomiting. He does complain of chronic pain especially in aches to the right lower extremity that goes up into his hip, reports that he has had imaging done of his hip and he said that nothing was wrong. He reports he has never smoked, he does not drink alcohol. Chest x-ray shows congestion, CHF, pending final read. EKG is normal sinus rhythm. CBC with an H&H of 12.9/40.5. Coags unremarkable. VBG with a pH 7.27,pCO2 63.9 performed on 6 L nasal cannula. BMP with a sodium of 135, potassium 5.6, BUN 53, creatinine 1.86, glucose 243. BNP 131. Troponin 8.2. UA with clear, yellow urine, 100 protein, 100 glucose, 3+ occult blood, innumerable RBCs, no bacteria seen. Nasal swab negative for COVID, influenza and RSV. Patient was medicated with 40 mg of Lasix IV, DuoNeb, 125 Solu-Medrol, Nitro-Durpatch. He will be admitted as inpatient to the [facility] telemetry floor. Review of Systems Review of Systems Review of systems: A 10 point review of systems was obtained, negative unless noted in the HPI or below. [facility], [facility] Medical History (Updated 10/07/23 @ 02:34 by Lory Quinn APRN) Left toe amputee Asthma Problem List clean-up per request of Phys. EHR Cmte Amputation of one or more toes All toes to left foot and second metatarsal to right foot Diabetes mellitus, type 2 Problem List clean-up per request of Phys. EHR Cmte Social History Smoking Status: Never smoker Substance Use Type: None Meds Medications and Allergies Allergies Penicillins Allergy (Verified 10/06/23 20:32) Rash Home Medications budesonide-formoterol HFA 160 mcg-4.5 mcg/actuation aerosol inhaler (Symbicort) 2 puff inhalation BID 06/19/23 [History Confirmed 10/06/23] gabapentin 600 mg tablet 600 mg PO TID 06/19/23 [History Confirmed 10/06/23] insulin lispro 100 unit/mL subcutaneous solution (Humalog U-100 Insulin) 1 sliding scale dose 06/19/23 [History Confirmed 06/19/23] linagliptin 2.5 mg-metformin 1,000 mg tablet (Jentadueto) 1 tab PO BID 06/19/23 [History Confirmed 10/06/23] pantoprazole 40 mg tablet,delayed release 40 mg PO DAILY 06/19/23 [History Confirmed 10/06/23] ropinirole 1 mg tablet 1 mg PO QHS 06/19/23 [History Confirmed 10/06/23] furosemide 20 mg tablet (Lasix) 20 mg PO DAILY #30 tabs 06/21/23 [Rx Confirmed 10/06/23] insulin glargine U-300 conc 300 unit/mL (3 mL) subcutaneous pen (Toujeo Max U- 300 SoloStar) 35 unit (0.1167 mL) subcut BID #3 mL 06/21/23 [Rx Confirmed 10/06/23] amlodipine 10 mg tablet 10 mg PO DAILY 10/06/23 [History Confirmed 10/06/23] atorvastatin 40 mg tablet 40 mg PO DAILY 10/06/23 [History Confirmed 10/06/23] cephalexin 500 mg capsule 500 mg PO QID 10/06/23 [History Confirmed 10/06/23] tamsulosin 0.4 mg capsule 0.4 mg PO DAILY 10/06/23 [History Confirmed 10/06/23] tizanidine 2 mg tablet 2 mg PO Q8HR 10/06/23 [History Confirmed 10/06/23] Exam Physical Exam Vital Signs: Temp Pulse Resp BP Pulse Ox O2 Del Method O2 Flow Rate 97.8 F 83 20 152/78 H 90 L Simple Mask 6 10/07/23 00:30 10/07/23 00:30 10/07/23 00:30 10/07/23 00:30 10/07/23 00:30 10/07/23 00:30 10/07/23 00:30 Narrative: CONST- Appears well -developed and well nourished. Morbidly obese- BMI 45.7, In May patient weighed 140Kg, now 152Kg HEAD - Normocephalic and atraumatic EENT-Sclera nonicteric, conjunctive are non-erythemic, moist oral mucosa, pharynx clear NECK-Supple, no cervical lymphadenopathy CARDIAC-normal rate, regular rhythm, S1 & S2. PULM-diminished, fine crackles bilateral posterior bases, 6L simple mask, accessory muscle use, no retractions, harsh, nonproductive cough noted ABD - Soft. Bowel sounds are normal. Softly distended. No tenderness EXTREM- lymphedema to LLE, 4+ pitting edema to RLE, nontender SKIN- W/D good turgor, redness to RLE, dressing dry and intact to left foot MS- MAEX4 spontaneously, generalized weakness NEURO- A&Ox3 speech clear and tongue midline, equal facial symmetry, no focal motor deficits PSYCH-Mood, affect, and behavior appropriate Results Lab Results Labs: Laboratory Last Values Corrected WBC 7.0 X10E3/uL (4.1-10.5) 10/06/23 20:35 Uncorrected WBC Count 7.0 x10E3/uL (4.1-10.5) 10/06/23 20:35 RBC 4.73 X10E6/uL (3.90-5.60) 10/06/23 20:35 Hgb 12.9 g/dL (13.0-17.0) L 10/06/23 20:35 Hct 40.5 % (38.8-50.0) 10/06/23 20:35 MCV 85.6 fl (83.5-101) 10/06/23 20:35 MCH 27.3 pg (27.5-35.2) L 10/06/23 20:35 MCHC 31.9 g/dL (32.5-35.6) L 10/06/23 20:35 RDW 18.3 % (12.0-14.8) H 10/06/23 20:35 Plt Count 236 x10E3/uL (150-450) 10/06/23 20:35 MPV 6.8 fl (6.6-10.1) 10/06/23 20:35 Neut % (Auto) 74.8 % (.) 10/06/23 20:35 Lymph % (Auto) 11.2 % (.) 10/06/23 20:35 Mccreary % (Auto) 10.0 % (.) 10/06/23 20:35 Eos % (Auto) 3.0 % (.) 10/06/23 20:35 Baso % (Auto) 1.0 % (.) 10/06/23 20:35 Nucleat RBC Rel Count 0.1 /100 WBC (0-0.5) 10/06/23 20:35 Neut # (Auto) 5.2 x10E3/uL (1.8-7.7) 10/06/23 20:35 Lymph # (Auto) 0.8 x10E3/uL (1.00-4.8) L 10/06/23 20:35 Mccreary # (Auto) 0.7 x10E3/uL (0.0-0.8) 10/06/23 20:35 Eos # (Auto) 0.2 x10E3/uL (0.0-0.45) 10/06/23 20:35 Baso # (Auto) 0.1 x10E3/uL (0.0-0.2) 10/06/23 20:35 Monocyte Dist Width 17.40 % (0.00-20.00) 10/06/23 20:35 PT 11.4 Seconds (9.0-12.9) 10/06/23 20:35 INR 1.0 10/06/23 20:35 APTT 31.1 Seconds (25.1-36.5) 10/06/23 20:35 Sample Site Venous 10/06/23 21:14 VBG pH 7.27 (7.32-7.43) L 10/06/23 21:14 VBG pCO2 63.9 mmHg (38.0-50.0) H 10/06/23 21:14 VBG HCO3 28.8 mmol/L (23.0-29.0) 10/06/23 21:14 VBG Total CO2 30.8 mmol/L (24.0-29.0) H 10/06/23 21:14 VBG O2 Saturation 81.5 % (73.0-76.0) H 10/06/23 21:14 VBG Base Excess 0.4 mmol/L (-3.0-3.0) 10/06/23 21:14 O2 Delivery Device Nasal cannula 10/06/23 21:14 Liter Flow 6 10/06/23 21:14 FiO2 45% % 10/06/23 21:14 Critical Value 10/06/23 21:14 PHA Creatinine Clear 57.52 10/06/23 20:35 Sodium 135 mmol/L (136-145) L 10/06/23 20:35 Potassium 5.6 mmol/L (3.5-5.1) H 10/06/23 20:35 Chloride 102 mmol/L (98-107) 10/06/23 20:35 Carbon Dioxide 28.2 mmol/L (21.0-31.0) 10/06/23 20:35 Anion Gap 10.4 mEq/L (6.0-15.0) 10/06/23 20:35 BUN 53 mg/dL (7-25) H 10/06/23 20:35 Creatinine 1.86 mg/dL (0.70-1.30) H 10/06/23 20:35 Est GFR (CKD-EPI) 39.912 mL/Min 10/06/23 20:35 Glucose 243 mg/dL (70-100) H 10/06/23 20:35 Lactic Acid 0.7 mmol/L (0.5-2.2) 10/06/23 21:00 Calcium 8.7 mg/dL (8.6-10.3) 10/06/23 20:35 Total Creatine Kinase 60 U/L (30-223) 10/06/23 20:35 Troponin I High Sens 8.2 pg/mL (0.0-20.0) 10/06/23 20: B-Natriuretic Peptide 131.0 pg/mL (5-100) H 10/06/23 20:35 Urine Color Yellow (Yellow) 10/06/23 21: Urine Appearance Clear (Clear) 10/06/23 21: Urine pH 5.0 (5.0-9.0) 10/06/23 21: Ur Specific [place] 1.013 (1.001-1.030) 10/06/23 21: Urine Protein 100 mg/dL (Negative) H 10/06/23 21:26 Urine Glucose (UA) 100 mg/dL (Normal) H 10/06/23 21: Urine Ketones Negative (Negative) 10/06/23 21: Urine Occult Blood 3+ (Negative) H 10/06/23 21: Urine Nitrite Negative (Negative) 10/06/23 21: Urine Bilirubin Negative (Negative) 10/06/23 21: Urine Urobilinogen Normal mg/dL (Normal) 10/06/23 21: Ur Leukocyte Esterase Negative (Negative) 10/06/23 21:26 Urine RBC Innumerable /HPF (0-4) H 10/06/23 21:26 Urine WBC 1-2 /HPF (0-4) 10/06/23 21: Ur Squamous Epith Cells 0-1 /HPF (0-2) 10/06/23 21:26 Urine Bacteria None seen (None Seen) 10/06/23 21:26 Hyaline Casts 0-8 /LPF (0-8) 10/06/23 21:26 SARS-CoV-2 Rap RNA(RT-PCR) Negative (Negative) 10/06/23 21:03 Microbiology Results Micro: Microbiology - Results from entire visit 10/06/23 21:03 Nasopharyngeal SARS-CoV-2, Influenza & RSV (PCR) - Final ABG Interpretation ABG results: 10/06/23 21:14 VBG pH 7.27 L VBG pCO2 63.9 H VBG HCO3 28.8 VBG Total CO2 30.8 H VBG O2 Saturation 81.5 H VBG Base Excess 0.4 Assessment & Plan Assessment/Plan (1) Acute on chronic respiratory failure with hypoxia and hypercapnia: (2) CHF (congestive heart failure): (3) Obesity hypoventilation syndrome: (4) COPD (chronic obstructive pulmonary disease): (5) Diabetes mellitus, type 2: (6) Hypertension: (7) AMY (acute kidney injury): (8) CKD (chronic kidney disease) stage 3, GFR 30-59 ml/min: (9) Urine retention: Plan Acute on chronic respiratory failure with hypoxia and hypercapnia Acute exacerbation of CHF Obesity hypoventilation syndrome COPD ? Will try BiPAP 05/04, titrate to keep Spo2 >90% ? Continue oxygen, patient wears 4 L at all times at home, keep SpO2 greater than 90% ? Furosemide 40 mg IV twice daily ? Daily weights ? Echo in a.m. ? Continue budesonide/formoterol AMY on CKD stage III?current creatinine 1.86, baseline ~ 1.5 ? Continue diuresis ? BMP, magnesium in a.m. ? Monitor renal function Chronic conditions?resume home meds when confirmed T2DM?fingersticks ACHS, SSI C, continue basal insulin HTN?amlodipine RLS?ropinirole BPH?tamsulosin Neuropathy?gabapentin Urine retention?continue to maintain Elliott DVT PPx-SCDs, Madyson wrap's, heparin Diet order-1800 ADA, heart healthy CODE STATUS-full code as discussed with patient I personally saw this patient on the day of the encounter, reviewed the history,performed the dacosta elements of the exam, formulated the plan of care and confirmed the Nurse Practitioner's assessment and plan. - Tera Nevarez DO IP vs OBS Justification Based on differential dx, clinical care plan, and risk of adverse events, if untreated, in my clinical judgement this patient requires an acute care setting as: INPATIENT because of an expectation of an over 2 midnight stay. Estimated length of stay (# of days): 3 Documented By: Lory Quinn APRN 10/07/23 0209 Signed By: <Electronically signed by URBANO Quinn> 10/07/23 0243 <Electronically signed by Tera Nevarez DO> 10/07/23 0413 [facility] Work Phone: 1([phone] 154-804002-04-2024 Hospital Discharge instructions Patient Education 09/24/2023 21:50:57 Urinary Tract Infection, Adult Urinary Tract Infection, Adult A urinary tract infection (UTI) is an infection of any part of the urinary tract. The urinary tractincludes the kidneys, ureters, bladder, and urethra. These organs make, store, and get rid of urinein the body. An upper UTI affects the ureters and kidneys. A lower UTI affects the bladder and urethra. What are the causes? Most urinary tract infections are caused by bacteria in your genital area around your urethra, where urine leaves your body. These bacteria grow and cause inflammation of your urinary tract. What increases the risk? You are more likely to develop this condition if: You have a urinary catheter that stays in place. You are not able to control when you urinate or have a bowel movement (incontinence). You are female and you: ?Use a spermicide or diaphragm for control. ?Have low estrogen levels. ?Are . You have certain genes that increase your risk. You are sexually active. You take antibiotic medicines. You have a condition that causes your flow of urine to slow down, such as: ?An enlarged prostate, if you are male. ?Blockage in your urethra. ?A kidney stone. ?A nerve condition that affects your bladder control (neurogenic bladder). ?Not getting enough to drink, or not urinating often. You have certain medical conditions, such as: ?Diabetes. ?A weak disease-fighting system (immunesystem). ?Sickle cell disease. ?Gout. ?Spinal cord injury. What are the signs or symptoms? Symptoms of this condition include: Needing to urinate right away (urgency). Frequent urination. This may include small amounts of urine each time you urinate. Pain or burning with urination. Blood in the urine. Urine that smells bad or unusual. Trouble urinating. Cloudy urine. Vaginal discharge, if you are female. Pain in the abdomen or the lower back. You may also have: Vomiting or a decreased appetite. Confusion. Irritability or tiredness. A fever or chills. Diarrhea. The first symptom in older adults may be confusion. In some cases, they may not have any symptoms until the infection has worsened. How is this diagnosed? This condition is diagnosed based on your medical history and a physical exam. You may also have other tests, including: Urine tests. Blood tests. Tests for STIs (sexually transmitted infections). If you have had more than one UTI, a cystoscopy or imaging studies may be done to determine the cause of the infections. How is this treated? Treatment for this condition includes: Antibiotic medicine. Qswm-cpv-pevznkl medicines to treat discomfort. Drinking enough water to stay hydrated. If you have frequent infections or have other conditions such as a kidney stone, you may need to see a health care provider who specializes in the urinary tract (urologist). In rare cases, urinary tract infections can cause sepsis. Sepsis is a life- threatening condition that occurs when the body responds to an infection. Sepsis is treated in the hospital with IV antibiotics, fluids, and other medicines. Follow these instructions at home: Medicines Take bzye-dtb-rxbeqqp and prescription medicines only as told by your health care provider. If you were prescribed an antibiotic medicine, take it as told by your health care provider. Do notstop using the antibiotic even if you start to feel better. General instructions Make sure you: ?Empty your bladder often and completely. Do not hold urine for long periods of time. ?Empty your bladder after sex. ?Wipe from front to back after urinating or having a bowel movement if you are female. Use each tissue only one time when you wipe. Drink enough fluid to keep your urine pale yellow. Keep all follow-up visits. This is important. Contact a health care provider if: Your symptoms do not get better after 1 2 days. Your symptoms go away and then return. Get help right away if: You have severe pain in your back or your lower abdomen. You have a fever or chills. You have nausea or vomiting. Summary A urinary tract infection (UTI) is an infection of any part of the urinary tract, which includes the kidneys, ureters, bladder, and urethra. Most urinary tract infections are caused by bacteria in your genital area. Treatment for this condition often includes antibiotic medicines. If you were prescribed an antibiotic medicine, take it as told by your health care provider. Do notstop using the antibiotic even if you start to feel better. Keep all follow-up visits. This is important. This information is not intended to replace advice given to you by your health care provider. Make sure you discuss any questions you have with your health care provider. Document Revised: 03/19/2021 Document Reviewed: 03/19/2021 [employer] Patient Education 2022 [employer]. Follow Up Care 09/24/2023 20:06:30 With:Taz THOMAS Address: [facility] [address]IL[address]ORN [address] [place] [address] Business (1) When:09/26/2023 21:38:10 With:REID BROOKE Address: [address] [facility] [address] [place] [address] Business (1) When:Within 3 Day(s) [facility]02-04-2024 Evaluation + Plan noteExtracted from: Title:ED Note Author:Jose Miguel Phan DO Date :09/24/23 Acute UTI (N39.0: Urinary tr act infection, site not specified) Orders: cephalexin, 500 mg = 1 cap(s), Oral, q6hr, X 5 day(s), # 20 cap(s), Refills(s) 0, Pharmacy: [facility] #[id number], 180, cm, 09/24/23 20:13:00 EST, Height/Length Dosing, 141.4, kg, 09/24/23 20:13:00 EST, Weight Dosing cephalexin, 500 mg = 1 cap(s), Cap, Oral, Once, Stop date 09/24/23 21:33:00 EST, STAT, Start date 09/24/23 21:33:00 EST, 09/24/23 21:33:00 EST Basic Metabolic Panel CBC w/ Auto Diff eGFR Extra Blue Tube Extra SST Tube UA With Cult Reflex Urine Culture Future Appointments Appointment Date:09/26/2023 09:00:00 AM Scheduled Provider:BRYAN Bahena APRN, [place] [facility] Location:[facility] Appointment Type:URO New Patient Appointment Date:09/28/2023 01:00:00 PM Scheduled Provider: [facility] Appointment Type:[facility] () Appointment Date:10/18/2023 09:00:00 AM Scheduled Provider:Taz THOMAS MD Location:[facility] Appointment Type:URO New Patient Diagnostic Tests Pending * Urine Culture 09/24/23 Future Scheduled Tests Radiology* XR Chest 2 Views 05/15/23 * XR Chest 2 Views 05/15/23 [facility]01-28-2024 Hospital Discharge instructions Patient Education 09/17/2023 15:30:40 Indwelling Urinary Catheter Care, Adult Indwelling Urinary Catheter Care, Adult An indwelling urinary catheter is a thin, flexible tube that is placed into the bladder to help drain urine out of the body. The catheter is inserted into the urethra. The urethra is the part of the body that drains urine from the bladder. Urine drains from the catheter into a drainage bag outside of the body. Taking good care of your catheter will keep it working properly and help to prevent problems from developing. What are the risks? Bacteria may get into your bladder and cause a urinary tract infection. Urine flow can become blocked. This can happen if the catheter is not working correctly, or if you have sediment or a blood clot in your bladder or catheter. Tissue near the catheter may become irritated and may bleed. How to wear your catheter and your drainage bag Supplies needed Adhesive tape or a leg strap. Alcohol wipe or soap and water (if you use tape). A clean towel (if you use tape). Overnight drainage bag. Smaller drainage bag (leg bag). Wearing your catheter and bag Use adhesive tape or a leg strap to attach your catheter to your leg. Make sure the catheter is not pulled tight. If a leg strap gets wet, replace it with a dry one. If you use adhesive tape: 1.Use an alcohol wipe or soap and water to wash off any stickiness on your skin where you had tape before. 2.Use a clean towel to pat-dry the area. 3.Apply the new tape. You should have received a large overnight drainage bag and a smaller leg bag that fits underneath clothing. You may wear the overnight bag at any time, but you should not wear the leg bag at night. Make sure the overnight drainage bag is always lower than the level of your bladder, but do not letit touch the floor. Before you go to sleep, hang the bag inside a wastebasket that is covered by a clean plastic bag. Secure the leg bag according to continuous improvement black belt's instructions. This may be above or below the knee, depending on the length of the tubing. Make sure that: ?The leg bag is below the bladder. ?The tubing does not have loops or too much tension. How to care for the skin around the catheter Supplies needed A clean washcloth. Water and mild soap. A clean towel. Caring for your skin and catheter Every day, use a clean washcloth and soapy water to clean the skin around your catheter. 1.Wash your hands with soap and water. 2.Wet a washcloth in warm water and mild soap. 3.Clean the skin around your urethra. ?If you are female: ?Use one hand to gently spread the folds of skin around your vagina (labia). ?With the washcloth in your other hand, wipe the inner side of your labia on each side. Do this in a mezgn-aj-lhqy direction. ?If you are male: ?Use one hand to pull back any skin that covers the end of your penis (foreskin). ?With the washcloth in your other hand, wipe your penis in small circles. Start wiping at the tip of your penis, then move outward from the catheter. ?Move the foreskin back in place, if needed. 4.With your free hand, hold the catheter close to where it enters your body. Keep holding the catheter during cleaning so it does not get pulled out. 5.Use your other hand to clean the catheter with the washcloth. ?Only wipe downward on the catheter, toward the bag. ?Do not wipe upward toward your body, because that may push bacteria into your urethra and cause infection. 6.Use a clean towel to pat-dry the catheter and the skin around it. Make sure to wipe off all soap. 7.Wash your hands with soap and water. Shower every day. Do not take baths. Do not use cream, ointment, or lotion on the area where the catheter enters your body, unless your health care provider tells you to do that. Do not use powders, sprays, or lotions on your genital area. Check your skin around the catheter every day for signs of infection. Check for: ?Redness, swelling, or pain. ?Fluid or blood. ?Warmth. ?Pus or a bad smell. How to empty the drainage bag Supplies needed Rubbing alcohol. Gauze pad or cotton ball. Adhesive tape or a leg strap. Emptying the bag Empty your drainage bag (your overnight drainage bag or your leg bag) when it is ? full, or at least 2 3 times a day. Clean the drainage bag according to the continuous improvement black belt's instructions or as told byyour health care provider. 1.Wash your hands with soap and water. 2.Detach the drainage bag from your leg. 3.Hold the drainage bag over the toilet or a clean container. Make sure the drainage bag is lower than your hips and bladder. This stops urine from going back into the tubing and into your bladder. 4.Open the pour spout at the bottom of the bag. 5.Empty the urine into the toilet or container. Do not let the pour spout touch any surface. This precaution is important to prevent bacteria from getting in the bag and causing infection. 6.Apply rubbing alcohol to a gauze pad or cotton ball. 7.Use the gauze pad or cotton ball to clean the pour spout. 8.Close the pour spout. 9.Attach the bag to your leg with adhesive tape or a leg strap. 10.Wash your hands with soap and water. How to change the drainage bag Supplies needed: Alcohol wipes. A clean drainage bag. Adhesive tape or a leg strap. Changing the bag Replace your drainage bag with a clean bag if it leaks, starts to smell bad, or looks dirty. 1.Wash your hands with soap and water. 2.Detach the dirty drainage bag from your leg. 3.Pinch the catheter with your fingers so that urine does not spill out. 4.Disconnect the catheter tube from the drainage tube at the connection valve. Do not let the tubestouch any surface. 5.Clean the end of the catheter tube with an alcohol wipe. Use a different alcohol wipe to clean the end of the drainage tube. 6.Connect the catheter tube to the drainage tube of the clean bag. 7.Attach the clean bag to your leg with adhesive tape or a leg strap. Avoid attaching the new bag too tightly. 8.Wash your hands with soap and water. General instructions Never pull on your catheter or try to remove it. Pulling can damage your internal tissues. Always wash your hands before and after you handle your catheter or drainage bag. Use a mild, fragrance-free soap. If soap and water are not available, use hand tuber operator. Always make sure there are no twists, bends, or kinks in the catheter tube. Always make sure there are no leaks in the catheter or drainage bag. Drink enough fluid to keep your urine pale yellow. Do not take baths, swim, or use a hot tub. If you are female, wipe from front to back after having a bowel movement. Contact a health care provider if: Your catheter gets clogged. Your catheter starts to leak. You have signs of infection at the catheter site, such as: ?Redness, swelling, or pain where the catheter enters your body. ?Fluid, blood, pus, or a bad smell coming from the area where the catheter enters your body. ?The area where the catheter enters your body feels warm to the touch. You have signs of a urinary tract infection, such as: ?Fever or chills. ?Urine smells unusually bad. ?Cloudy urine. ?Pain in your abdomen, legs, lower back, or bladder. ?Nausea or vomiting. Get help right away if: You see blood in the catheter. Your urine is pink or red. Your bladder feels full. Your urine is not draining into the bag. Your catheter gets pulled out. Summary An indwelling urinary catheter is a thin, flexible tube that is placed into the bladder to help drain urine out of the body. The catheter is inserted into the part of the body that drains urine from the bladder (urethra). Take good care of your catheter to keep it working properly and help prevent problems from developing. Always wash your hands before and after you handle your catheter or drainage bag. Never pull on your catheter or try to remove it. This information is not intended to replace advice given to you by your health care provider. Make sure you discuss any questions you have with your health care provider. Document Revised: 04/07/2022 Document Reviewed: 04/07/2022 Elsevier Patient Education 2022 [employer]. Follow Up Care 09/17/2023 14:05:58 With:REID BROOKE Address: [facility] ZOE URBINA [address] [place] [phone] Business (1) When:09/20/2023 15:07:35 Comments:Apply small amount of the lidocaine gel that was provided to you in the emergency room 2-3 times a day around the opening of the urethra around the Elliott catheter. Return to the emergency room if theFoley catheter stops draining, you develop drainage from the penis or any new symptoms. Make sure to follow-up with urologist as instructed by the hospitalist. [facility]01-28-2024 Evaluation + Plan noteExtracted from: Title:ED Note Author:Shira Snider, Alejandro Bustos te:09/17/23 1. Encounter for evaluation of Elliott catheter (Z76.89: Persons encountering health services in other specified circumstances) 2. Penile irritation (N48.89: Other specified disorders of penis) Orders: lidocaine topical, 220 mg, 11 mL, Gel-Anny, Topical, Once, Stop date 09/17/23 15:17:00 EST, STAT, Start date 09/17/23 15:17:00 EST Future Appointments Appointment Date:09/18/2023 01:00:00 PM Scheduled Provider: [facility] Future Scheduled Tests Radiology* XR Chest 2 Views 05/15/23 * XR Chest 2 Views 05/15/23 [facility] Comment: Electronically Signed By: Kayla Garcia MD\.br\Date and Time Signed: 09/16/23 10:23 [id number] [facility] Comment on above:Result Comment: Electronically Signed By: Kayla Garcia MD\.br\Date and Time Signed: 09/12/23 17:49 [id number] Hospital Discharge instructions Patient Education 08/06/2023 14:18:47 RICE Therapy for Routine Care of Injuries, Sacb-qn-Xyse RICE Therapy for Routine Care of Injuries Many injuries can be cared for with rest, ice, compression, and elevation (RICE therapy). This includes: Resting the injured body part. Putting ice on the injury. Putting pressure (compression) on the injury. Raising the injured part (elevation). Using RICE therapy can help to lessen pain and swelling. Supplies needed: Ice. Plastic bag. Towel. Elastic bandage. Pillow or pillows to raise your injured body part. How to care for your injury with RICE therapy Rest Try to rest the injured part of your body. You can go back to your normal activities when your doctor says it is okay to do them and when you can do them without pain. If you rest the injury too much, it may not heal as well. Some injuries heal better with early movement instead of resting for too long. Ask your doctor if you should do exercises to help your injuryget better. Ice If told, put ice on the injured area. To do this: ?Put ice in a plastic bag. ?Place a towel between your skin and the bag. ?Leave the ice on for 20 minutes, 2 3 times a day. ?Take off the ice if your skin turns bright red. This is very important. If you cannot feel pain, heat, or cold, you have a greater risk of damage to the area. Do not put ice on your bare skin. Use ice for as many days as your doctor tells you to use it. Compression Put pressure on the injured area. This can be done with an elastic bandage. If this type of bandagehas been put on your injury: Follow instructions on the package the bandage came in about how to use it. Do not wrap the bandage too tightly. ?Wrap the bandage more loosely if part of your body beyond the bandage is blue, swollen, cold, painful, or loses feeling. Take off the bandage and put it on again every 3 4 hours or as told by your doctor. See your doctor if the bandage seems to make your problems worse. Elevation Raise the injured area above the level of your heart while you are sitting or lying down. Follow these instructions at home: If your symptoms get worse or last a long time, make a follow-up appointment with your doctor. You may need to have imaging tests, such as X-rays or an MRI. If you have imaging tests, ask how to get your results when they are ready. Return to your normal activities when your doctor says that it is safe. Keep all follow-up visits. Contact a doctor if: You keep having pain and swelling. Your symptoms get worse. Get help right away if: You have sudden, very bad pain at your injury or lower than your injury. You have redness or more swelling around your injury. You have tingling or numbness at your injury or lower than your injury, and it does not go away when you take off the bandage. Summary Many injuries can be cared for using rest, ice, compression, and elevation (RICE therapy). You can go back to your normal activities when your doctor says it is okay and when you can do themwithout pain. Put ice on the injured area as told by your doctor. Get help if your symptoms get worse or if you keep having pain and swelling. This information is not intended to replace advice given to you by your health care provider. Make sure you discuss any questions you have with your health care provider. Document Revised: 05/27/2021 Document Reviewed: 05/27/2021 Get Smart Content Patient Education 2022 [employer]. 08/06/2023 14:18:47 Hip Pain Hip Pain The hip is the joint between the upper legs and the lower pelvis. The bones, cartilage, tendons, and muscles of your hip joint support your body and allow you to move around. Hip pain can range from a minor ache to severe pain in one or both of your hips. The pain may be felt on the inside of the hip joint near the groin, or on the outside near the buttocks and upper thigh. You may also have swelling or stiffness in your hip area. Follow these instructions at home: Managing pain, stiffness, and swelling If directed, put ice on the painful area. To do this: ?Put ice in a plastic bag. ?Place a towel between your skin and the bag. ?Leave the ice on for 20 minutes, 2 3 times a day. If directed, apply heat to the affected area as often as told by your health care provider. Use theheat source that your health care provider recommends, such as a moist heat pack or a heating pad. ?Place a towel between your skin and the heat source. ?Leave the heat on for 20 30 minutes. ?Remove the heat if your skin turns bright red. This is especially important if you are unable to feel pain, heat, or cold. You may have a greater risk of getting burned. Activity Do exercises as told by your health care provider. Avoid activities that cause pain. General instructions Take sytv-uyq-uxqzutm and prescription medicines only as told by your health care provider. Keep a journal of your symptoms. Write down: ?How often you have hip pain. ?The location of your pain. ?What the pain feels like. ?What makes the pain worse. Sleep with a pillow between your legs on your most comfortable side. Keep all follow-up visits as told by your health care provider. This is important. Contact a health care provider if: You cannot put weight on your leg. Your pain or swelling continues or gets worse after one week. It gets harder to walk. You have a fever. Get help right away if: You fall. You have a sudden increase in pain and swelling in your hip. Your hip is red or swollen or very tender to touch. Summary Hip pain can range from a minor ache to severe pain in one or both of your hips. The pain may be felt on the inside of the hip joint near the groin, or on the outside near the buttocks and upper thigh. Avoid activities that cause pain. Write down how often you have hip pain, the location of the pain, what makes it worse, and what it feels like. This information is not intended to replace advice given to you by your health care provider. Make sure you discuss any questions you have with your health care provider. Document Revised: 12/23/2019 Document Reviewed: 12/23/2019 Get Smart Content Patient Education 2022 [employer]. Follow Up Care 08/06/2023 13:03:18 With:REID BROOKE Address: [facility] LEAH HORN[address] [address] Business (1) When:08/09/2023 14:06:25 Comments:Follow-up with your primary care provider in 3 to 5 days. If symptoms worsen, do not improve, or new symptoms arise please report back to emergency department for further evaluation. [facility]12-17-2023 Evaluation + Plan noteExtracted from: Title:ED Note Author:Greyson ENGLE, Paddy Bustos te:08/06/23 Right hip pain (M25.551: Barb n in right hip) Orders: XR Hip 2-3 Views Right + Pelvis Future Appointments Appointment Date:08/16/2023 09:30:00 AM Scheduled Provider:Sukh Harrington DPM [facility] Type:[facility] Follow Up Visit ([facility]) Appointment Date:08/24/2023 10:00:00 AM Scheduled Provider:Migue STROUD MD Location:[facility] Appointment Type: Open Future Scheduled Tests Radiology* XR Chest 2 Views 05/15/23 * XR Chest 2 Views 05/15/23 [facility]11-01-2023 Progress note Author Amrik De Guzman [facility] June 21, 2023 12:21pm Note Date/Time June 21, 2023 1 2:21pm [facility] [address] [place] [address] Pulmonology Progress Note Signed Patient: Nicole Lora MR#: [id number] 29 : 1960 Acct:[id number] Age/Sex: 63 / M Adm Date: 3 Loc: Room: [address] [place] [address] Type: ADM IN Attending Dr: Alban Arrington DO Copies to: ~ Date of Service: 06/21/2023 Subjective Subjective Narrative: Patient reports feeling better today, still on oxygen therapy currently at 5 L, hemodynamically stable except for persistent hypertension, excellent diuretic response over the last 24 hours with nearly 3 L urine output. White count remains stable. Blood gases showed compensated hypercarbia with a PCO2 of 63 pHof 7.37 his PO2 was 69 on 5 L. Kidney functions are relatively stable. Unfortunately there is no documentation of patient receiving CPAP as I ordered yesterday, he tells me that it was never attempted on him last night Exam Physical Exam Vital Signs: Temp Pulse Resp BP Pulse Ox O2 Del Method O2 Flow Rate 97.3 F L 72 16 179/80 H 94 L Nasal Cannula 5 06/21/23 11:22 06/21/23 11:22 06/21/23 11:22 06/21/23 11:22 06/21/23 11:22 06/21/23 11:50 06/21/23 11:50 Narrative: General: Patient is alert awake responds appropriately in no distress Eyes: Pupils equal round reactive to light HEENT: Normocephalic, atraumatic, oral mucosa moist, macroglossia noted, Mallampati score is 4 Neck: Supple no lymphadenopathy or thyromegaly Cardiovascular: S1, S2, normal sounds, no murmurs or gallops noted, regular rhythm Lungs: Diminished breath sounds bilaterally otherwise clear to auscultation Extremities: 2+ pitting leg and foot edema more on the left with partial foot resection as mentioned Neurologic: Alert, awake, orientedx3, no focal weakness or speech abnormality Objective Intake and Output I&O - Last 24 Hours: Intake & Output 06/20/23 06/21/23 06/21/23 23:59 07:59 15:59 Intake Total 840 / 1460 480 / 480 Output Total 800 / 3400 500 / 500 Balance 40 / -1940 - / -20 Weight 147.4 kg Labs 06/21/23 06:54 06/21/23 06:54 Assessment/Plan Assessment/Plan (1) Acute on chronic respiratory failure with hypoxia and hypercapnia: (2) Obstructive sleep apnea: (3) Obesity hypoventilation syndrome: (4) Right heart failure: (5) Hypertensive urgency: Plan * Patient is clinically stable, he is following up with pulmonology in [place], and supposed to call for sleep study and arrangement of positive pressure ventilation at home. Otherwise he is being discharged today, no further recommendations from my standpoint Documented By: Amrik De Guzman MD 06/21/231218 Signed By: <Electronically signed by Amrik De Guzman MD> 06/21/23 [address] [facility] Work Phone: [phone] 167-444611-01-2023 Discharge summary Author Alban Arrington [facility] June 21, 2023 1:58pm Note Date/Time June 21, 2023 1 2:17pm [facility] [address] [place] [address] Discharge Summary Signed Patient: Nicole Lora MR#: [id number] [birth year] : 1960 Acct:[id number] Age/Sex: 63 / M Adm Date: 3 Loc: 3T Room: [address] [place] [address]: Alban Arrington DO Copies to: MD Alban Young, DO~ Providers Date of Discharge: 11/01/23 Discharging Provider: Alban Arrington Primary Care Provider: Migue Stroud Consults: 06/20/23 13:39 Consult to Pulmonology Routine Discharge Diagnosis (1) Acute on chronic respiratory failure with hypoxia and hypercapnia: (2) Obstructive sleep apnea: (3) Obesity hypoventilation syndrome: (4) Right heart failure: (5) Hypertensive urgency: Final Diagnosis Final Discharge Diagnosis: In addition to the above diagnoses: 6. Insulin-dependent diabetes mellitus Summary Hospital Course Hospital course: This patient is a 63-year-old male presented to the emergency department eveningof 06/18/2023 with worsening peripheral edema and shortness of breath. Earlier in the week he had been treated as an inpatient for pneumonia at outside facility and discharged on prednisone and oral doxycycline. He was newly initiated on 4 L nasal cannula wqaest-dke-wmeiz for ongoing hypoxia. Prior to this he denies any major cardiopulmonary disease besides some asthma in the past. Significantly edematous on arrival to the ER and further evidence of CHF noted on chest x-ray with significant interstitial edema and cardiomegaly. Ongoing hypertension as well. Patient was admitted for IV diuresis and treatment of congestive heart failure. An echocardiogram was obtained from his recent hospitalization showing a preserved ejection fraction and no evidence of pulmonary hypertension. Despite this the patient has definitive clinical evidence of at the very least left-sided diastolic congestive heart failure and likely ongoing right-sided failure and/or pulmonary hypertension. Exhibiting nofurther signs of infection and no antibiotics were continued. He refused further prednisone taper stating that this makes him hallucinate. Renal function and electrolytes were monitored daily with diuresis and the patient didclinical improvement of his edema. He remains on supplemental O2 requirement atleast 4 L. Monitor this and suspect this ongoing underlying pulmonary pathologythat has been undiagnosed with his many risk factors. With his morbid obesity he certainly has obesity hypoventilation risk as well as sleep apnea for which he needs further work-up. Subsequently pulmonology was consulted who did evaluate the patient at and did suspect similar underlying pathology. At this time the patient is anxious to be discharged. Explained to him that he needs tofollow-up with pulmonology regularly, continue diuretics and follow closely witha primary care doctor. He will need to have a sleep study completed. He has supplemental O2 at this time provided from previous hospitalization. ABG does confirm likely chronic hypercapnic respiratory failure in addition to chronic hypoxia as elevated serum bicarbonate indicates appropriate compensation. At this time I will place the patient on a low-dose of 20 mg daily Lasix supplementwith potassium and magnesium supplemented additionally. He should have labs checked and follow with his PCP to make any further adjustments in the next weekor 2. Given the patient's ongoing hypertension initially prescribed him lisinopril HCTZ for additional diuretic effect and nephro protection given his chronic hypertension and diabetes. Narrative: General: No acute distress. Resting comfortably in bed. HEENT: Atraumatic, normocephalic. conjunctivae clear. No scleral icterus. CV: Regular rate and rhythm. No murmurs, rubs, or gallops Respiratory: Clear to auscultation bilaterally. On nasal cannula Abdominal: Soft, nondistended, nontender Extremities: Bilateral lower extremity edema. Left extremity with venous stasischanges. 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 Psych: appropriate mood and affect, speech is clear 40 minutes were spent coordinating the discharge of this patient Time Spent with Patient Time spent providing/coordinating discharge services (# min): 40 Diagnostic Studies Completed and Pending Studies Pending studies at discharge: 06/22/23 05:00 Basic Metabolic Panel [CHEM] IN AM Complete Blood Count Auto Diff IN AM Magnesium [CHEM] IN AM 06/23/23 05:00 Basic Metabolic Panel [CHEM] IN AM Complete Blood Count Auto Diff IN AM Magnesium [CHEM] IN AM Labs on day of discharge: 06/21/23 11:01: POC Glucose 200 06/21/23 08:43: POC Glucose 108 06/21/23 07:16: POC Glucose 77 06/21/23 06:54: PHA Creatinine Clear 69.61, Sodium 143, Potassium 4.4, Chloride 100, Carbon Dioxide 41.1 H, Anion Gap 6.3, BUN 38 H, Creatinine 1.60 H, Est GFR (CKD- EPI) 47.816, Glucose 60 L D, Calcium 8.7, Magnesium 1.8 L 06/21/23 06:54: Corrected WBC 9.5, Uncorrected WBC Count 9.5, RBC 5.24, Hgb 14.9, Hct 46.3, MCV 88.3, MCH 28.4, MCHC 32.2 L, RDW 16.0 H, Plt Count 241, MPV 7.1, Neut % (Auto) 57.7, Lymph % (Auto) 26.3, Mccreary % (Auto) 9.9, Eos % (Auto) 5.4, Baso % (Auto) 0.7, Nucleat RBC Rel Count 0.1, Neut # (Auto) 5.5, Lymph # (Auto) 2.5, Mccreary # (Auto) 0.9 H, Eos # (Auto) 0.5 H, Baso # (Auto) 0.1 06/21/23 06:39: POC Glucose 55 L*, POC Glucose Comment Will notify dr/rn 06/20/23 20:33: POC Glucose 227 06/20/23 17:49: Sample Site Right radial, ABG pH 7.37, ABG pCO2 63.6 H*, ABG pO2 69.0 L, ABG HCO3 36.0 H, ABG Total CO2 38.0 H, ABG O2 Saturation 94.1 L, ABG O2 Content 9.0, ABG Base Excess 8.1 H, Liter Flow 5l, FiO2 Na, Critical Value 06/20/23 16:46: POC Glucose 191 Exam Physical Exam Vital Signs: Temp Pulse Resp BP Pulse Ox O2 Del Method O2 Flow Rate 97.3 F L 72 16 179/80 H 94 L Nasal Cannula 5 06/21/23 11:22 06/21/23 11:22 06/21/23 11:22 06/21/23 11:22 06/21/23 11:22 06/21/23 11:50 06/21/23 11:50 Discharge Plan Discharge Plan Patient Disposition: Home Activity: No Activity Restriction Diet: Diabetic and Low-Sodium Additional Instructions: Continue oxygen as per chronic orders. Dietitian recommendations: *Magic cup, 1 container, daily with meal Monitor glucose levels as before. Change dressing daily: *left foot ulcer- allow vashe moistened gauze soak on wound bed for 5 min., wipe free loose debris, apply hydrogel with collagen to wound bed, top with 4x4s and secure with kerlix Please keep previously scheduled appointment with weatherization field technician in [place]. Prescriptions: New lisinopril-hydrochlorothiazide 20-25 mg tablet 1 tab PO DAILY Qty: 30 0RF furosemide [Lasix] 20 mg tablet 20 mg PO DAILY Qty: 30 0RF potassium chloride 10 mEq capsule, extended release 10 meq PO DAILY Qty: 30 0RF magnesium oxide 200 mg magnesium tablet 200 mg PO DAILY Qty: 30 0RF Continued gabapentin 600 mg tablet 600 mg PO TID Patient Comments: take 1 tablet by mouth three times a day ropinirole 1 mg tablet 1 mg PO QHS Patient Comments: take 1 tablet by mouth every evening pantoprazole 40 mg tablet,delayed release (DR/EC) 40 mg PO DAILY Patient Comments: take 1 tablet by mouth once daily insulin lispro [Humalog U-100 Insulin] 100 unit/mL Solution Rx Instructions: Sliding scale budesonide-formoterol [Symbicort] 160-4.5 mcg/actuation HFA aerosol inhaler 2 puff INHALATION BID Patient Comments: inhale 2 puffs by mouth twice a day Jentadueto 2.5-1,000 mg tablet 1 tab PO BID Patient Comments: take 1 tablet by mouth twice a day Changed Toujeo Max U-300 SoloStar 300 unit/mL (3 mL) Insulin Pen 35 unit SUBCUT BID Qty: 3 0RF Discontinued doxycycline hyclate 100 mg capsule 100 mg PO BID Patient Comments: take 1 capsule by mouth twice a day amlodipine 10 mg tablet 10 mg PO BID Patient Comments: take 1 tablet by mouth once daily Other Ambulatory Orders: Basic Metabolic Panel (Routine) Timeframe: 1 Week Location: Determined by Patient Ordered By: Alban Arrington Magnesium (Routine) Timeframe: 1 Week Location: Determined by Patient Ordered By: Alban Arrington DME Home Medical Equipment (Routine) Timeframe: 20230621 Location: Determined by Patient Ordered By: Alban Arrington Follow Up: Migue Stroud MD [Primary Care Provider] - 06/26/23 10:40 am (You have beenscheduled for a follow up appointment for the following date and time, please call to reschedule if needed.) Documented By: Alban Arrington DO 06/21/23 12 12 Signed By: <Electronically signed by Alban Arrington DO> 06/21/23 1350 [facility] Work Phone: 1(441) 579-771210-31-2023 Consult note Author Amrik De Guzman [facility] June 20, 2023 2:43pm Note Date/Time June 20, 2023 2 :43pm [facility] [address] [place] [address] Pulmonology Consult Note Signed Patient: Nicole Lora MR#: [id number] 29 : 1960 Acct:[id number] Age/Sex: 63 / M Adm Date: 3 Loc: Room: [address] [place] [address] Type: ADM IN Attending Dr: Alban Arrington DO Copies to: MD Albna Andersen, DO Reid Brooke DO~ HPI Date/Time of Consultation: Date of Service: 06/20/2023 Time of Service: 14:34 Consulting Provider: Amrik De Guzman Requesting Provider: Alban Arrington History of Present Illness History of present illness: Mr. Lora is a 63 year old male who is morbidly obese with history of progressive dyspnea, episodic severe cough with choking sensation, he has had that for months but recently felt that he was not able to catch his breath after 1 of those bad coughing spells for which she went to [facility] emergency room, wastold that he had pneumonia and was admitted. Apparently he was seen by pulmonology and is being set up for a sleep study, he also was started on inhalers. He has never smoked but was diagnosed with asthma. He has chronic severe edema for which she felt bloated and decided to come here for admission. He was diuresed overnight with over 1800 mL urine output so far withsome improvement in his generalized edema. Patient has not been evaluated or hospitalized in years, as previous hospitalization involved partial resection ofhis left foot. He has had severe edema in that left lower extremity since. On presentation here he appeared comfortable in no distress but required 5 L of oxygen, he was discharged home from [facility] on 4 L of oxygen. White count was normal his BUN and creatinine were elevated and was diagnosed with chronic kidney disease even previously at [facility]. I do not have any of his previous x- rays, CT, to review, chest x-ray here showed mild left lower lobe infiltrate possibly fibrotic or atelectatic with some volume loss in the left lung, again no baseline film to compare Review of Systems Review of Systems Review of systems: As mentioned above [facility] Medical History (Updated 06/20/23 @ 14:40 by Amrik De Guzman MD) Amputation of one or more toes Asthma Diabetes mellitus, type 2 Social History Smoking Status: Never smoker Substance Use Type: None Meds Medications and Allergies Allergies Penicillins Allergy (Verified 06/18/23 21:40) Rash Home Medications amlodipine 10 mg tablet 10 mg PO BID 06/19/23 [History Confirmed 06/19/23] budesonide-formoterol HFA 160 mcg-4.5 mcg/actuation aerosol inhaler (Symbicort) 2 puff inhalation BID 06/19/23 [History Confirmed 06/19/23] doxycycline hyclate 100 mg capsule 100 mg PO BID 06/19/23 [History Confirmed 06/19/23] gabapentin 600 mg tablet 600 mg PO TID 06/19/23 [History Confirmed 06/19/23] insulin glargine U-300 conc 300 unit/mL (3 mL) subcutaneous pen (Toujeo Max U- 300 SoloStar) 40 unit subcut BID 06/19/23 [History Confirmed 06/19/23] insulin lispro 100 unit/mL subcutaneous solution (Humalog U-100 Insulin) 06/19/23 [History Confirmed 06/19/23] linagliptin 2.5 mg-metformin 1,000 mg tablet (Jentadueto) 1 tab PO BID 06/19/23 [History Confirmed 06/19/23] pantoprazole 40 mg tablet,delayed release 40 mg PO DAILY 06/19/23 [History Confirmed 06/19/23] ropinirole 1 mg tablet 1 mg PO QHS 06/19/23 [History Confirmed 06/19/23] Exam Physical Exam Vital Signs: Temp Pulse Resp BP Pulse Ox O2 Del Method O2 Flow Rate 97.3 F L 78 20 143/65 H 90 L Nasal Cannula 5 06/20/23 14:00 06/20/23 14:00 06/20/23 08:02 06/20/23 14:00 06/20/23 14:00 06/20/23 14:00 06/20/23 14:00 Narrative: General: Patient is alert awake responds appropriately in no distress Eyes: Pupils equal round reactive to light HEENT: Normocephalic, atraumatic, oral mucosa moist, macroglossia noted, Mallampati score is 4 Neck: Supple no lymphadenopathy or thyromegaly Cardiovascular: S1, S2, normal sounds, no murmurs or gallops noted, regular rhythm Lungs: Diminished breath sounds bilaterally otherwise clear to auscultation Extremities: 2+ pitting leg and foot edema more on the left with partial foot resection as mentioned Neurologic: Alert, awake, orientedx3, no focal weakness or speech abnormality Results Intake and Output I&O - Last 24 Hours: Intake & Output 06/19/23 06/20/23 06/20/23 23:59 07:59 15:59 Intake Total 300 / 600 Output Total 800 / 2400 1000 / 1000 Balance -500 / -1800 -1000 / -1000 Weight 149.5 kg Labs 06/20/23 07:39 06/20/23 07:39 Microbiology Micro: 06/18/23 22:08 SARS-CoV-2, Influenza & RSV (PCR) - Final Nasopharyngeal Assessment/Plan (1) Acute on chronic respiratory failure with hypoxia and hypercapnia: (2) Obstructive sleep apnea: (3) Obesity hypoventilation syndrome: (4) Right heart failure: (5) Hypertensive urgency: Plan * Patient's clinical presentations findings on exam, and history are all sugge stive of underlying severe obstructive sleep apnea with obesity hypoventilation, chronic respiratory failure with hypoxia and hypercapnia with gradual worsening associated with progressive right heart failure or cor pulmonale. Reportedly echo at [facility] did not report pulmonary hypertension but clinical evaluation is consistent with that. * Without pulmonary function testing it is hard to establish the diagnosis of asthma as his symptoms could very well be related to upper airway cough synd ant associated with obstructive sleep apnea and nocturnal GERD * Echocardiogram was ordered we will evaluate * I will obtain ABGs for baseline * Patient tolerated CPAP at 13 cm of water while he was at [facility] per his history, will try this again tonight * Patient reported to me seeing pulmonology in [place] who are arranging for sleep study and treatment of obstructive sleep apnea * Will need continued diuretic therapy on discharge in addition to continuous oxygen therapy * Maintain inhaled therapy as started by pulmonology in [place], patient will follow-up with them upon discharge Documented By: Amrik De Guzman MD 06/20/23 1434 Signed By: <Electronically signed by Amrik De Guzman MD> 06/20/23 1443 [facility] Work Phone: 1(215) 691-573910-31-2023 Progress note Author Alban Arrington [facility] June 20, 2023 1:37pm Note Date/Time June 20, 2023 9 :48am [facility] [address] [place] [address] Hospitalist Progress Note Signed Patient: Nicole Lora MR#: [id number] 29 : 1960 Acct:[id number] Age/Sex: 63 / M Adm Date: 3 Loc: Room: [address] [place] [address] Type: ADM IN Attending Dr: Alban Arrington DO Copies to: ~ Date of Service: 06/20/2023 Subjective Subjective Narrative: Patient seen and examined this morning. He is resting comfortably in the recliner. Patient remains on supplemental oxygen, currently on 5 L nasal cannula. Patient reports improvement in his symptoms since admission. He denies any concerns or complaints at this time. Denies fevers, chest pains, nausea,abdominal pain. Exam Physical Exam Vital Signs: Temp Pulse Resp BP Pulse Ox O2 Del Method O2 Flow Rate 97.5 F L 73 20 159/71 H 95 Nasal Cannula 5 06/20/23 08:02 06/20/23 08:02 06/20/23 08:02 06/20/23 08:02 06/20/23 08:02 06/20/23 08:02 06/20/23 08:02 Narrative: General: No acute distress. Resting comfortably in bed. HEENT: Atraumatic, normocephalic. conjunctivae clear. No scleral icterus. CV: Regular rate and rhythm. No murmurs, rubs, or gallops Respiratory: Clear to auscultation bilaterally. On nasal cannula Abdominal: Soft, nondistended, nontender Extremities: Bilateral lower extremity edema. Left extremity with venous stasischanges. 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 Psych: appropriate mood and affect, speech is clear Objective Lab Results 06/20/23 07:39 06/20/23 07:39 Meds Allergies and Active Meds Allergies Penicillins Allergy (Verified 06/18/23 21:40) Rash Active Meds: Active Medications Generic Name Dose Route Start Last Admin Trade Name Freq PRN Reason Stop Dose Admin Albuterol 2.5 mg 06/19/23 01:21 Albuterol Neb 2.5 Mg/3 Ml Vial.Neb INHALATION 06/18/24 01:20 Q3H PRN Shortness Of Breath Budesonide/Formoterol Fumarate 2 puff 06/19/23 09:00 06/19/23 20:35 Budesonide/Formoterol 160-4.5 Mcg 60 Puff/6 Gm Hfa.Aer.Ad INHALATION 06/18/24 08:59 2 puff BID JIMMIE Administration Furosemide 40 mg 06/19/23 08:00 06/20/23 08:05 Furosemide 40 Mg/4 Ml Vial IV-PUSH 06/18/24 07:59 40 mg BID@0800,1600 JIMMIE Administration Gabapentin 600 mg 06/19/23 09:00 06/20/23 08:05 Gabapentin 600 Mg Tablet PO 06/18/24 08:59 600 mg TID JIMMIE Administration Hydralazine HCl 20 mg 06/19/23 05:37 06/20/23 00:40 Hydralazine 20 Mg/Ml Vial IV-PUSH 06/18/24 05:36 20 mg Q4H PRN Administration SBP > 155 Magnesium Sulfate 2 gm in 50 mls @ 25 mls/hr 06/19/23 01:21 06/19/23 09:03 Magnesium Sulf 2gm-*Swfi* IV 06/18/24 01:20 25 mls/hr DAILY PRN Administration Magnesium < 1.9 Potassium Chloride 40 meq/ 520 mls @ 130 mls/hr 06/19/23 01:21 Sodium Chloride IV 06/18/24 01:20 DAILY PRN K < 3.6 Insulin Aspart 0 units 06/19/23 08:00 06/20/23 08:05 Insulin Aspart 300 Units/3 Ml Insuln.Pen SUBCUT 06/18/24 07:59 3 units TID.WM.HS JIMMIE Administration Protocol Insulin Glargine 40 units 06/20/23 21:00 Insulin Glargine 300 Units/3 Ml Insuln.Pen SUBCUT 06/18/24 20:59 BID JIMMIE Nitroglycerin 1 each 06/19/23 06:00 06/20/23 05:26 Nitroglycerin Patch 0.4 Mg/Hr 1 Each Patch.Td24 TRANSDERML 06/18/24 05:59 1each DAILY@0600 JIMMIE Administration Pantoprazole Sodium 40 mg 06/19/23 09:00 06/20/23 08:05 Pantoprazole 40 Mg Tablet.Dr MOREIRA 06/18/24 08:59 40 mg DAILY JIMMIE Administration Potassium Chloride 40 meq 06/19/23 01:21 Potassium Chloride Er 20 Meq Tab.Er.Prt PO 06/18/24 01:20 DAILY PRN Hypokalemia Potassium Chloride 40 meq 06/19/23 01:21 Potassium Chloride Liquid 20 Meq/15 Ml Udc PO 06/18/24 01:20 DAILY PRN K < 3.8 Prednisone 20 mg 06/20/23 08:00 06/20/23 09:43 Prednisone 20 Mg Tablet PO 06/18/24 07:59 Not Given DAILY JIMMIE Rivaroxaban 10 mg 06/19/23 09:00 06/20/23 08:05 Rivaroxaban 10 Mg Tablet PO 06/18/24 08:59 10 mg DAILY JIMMIE Administration Ropinirole HCl 1 mg 06/19/23 22:00 06/19/23 21:18 Ropinirole 1 Mg Tablet PO 06/18/24 21:59 1 mg QHS JIMMIE Administration Sodium Chloride 0 ml 06/18/23 21:40 06/20/23 08:07 Sodium Chloride 0.9 % 10 Ml Syringe IV-PUSH 06/17/24 21:39 10 ml PRN PRN Administration Flush A&P - Hospitalist Assessment/Plan (1) Respiratory failure: (2) Hypertensive urgency: Plan Acute on chronic hypoxic respiratory failure -Recently discharged from [facility] for pneumonia on 4 L oxygen, no prior oxygen use -S/p 1 week of antibiotics for recent pneumonia -BNP likely a false negative due to excess adipose. -CXR: Left lower lobe airspace disease -Last echo showed EF 60 to 65%, repeat echo pending -Continue IV Lasix twice daily -Replete potassium and magnesium as needed. Chronic asthma -Continue steroid taper, decrease to prednisone 20mg -Continue home Symbicort -Albuterol as needed Hypertensive urgency Chronic hypertension -Likely precipitated by CHF -Received low-dose IV hydralazine -Hold home amlodipine due to leg edema -Hydralazine as needed Acute congestive heart failure, unspecified type -Echo at [facility] showed EF of 60 to 65% -Await echocardiogram Insulin-dependent diabetes mellitus -Elevated BG's , likely secondary to steroids -Continue 40 twice daily basal insulin -Increase sliding scale Acute kidney injury versus chronic kidney disease -Risk factors include diabetes hypertension -No baseline to compare -Continue to monitor renal function with ongoing diuresis -Creatinine trended up to 1.5 Hyperkalemia, resolved -Continue to monitor -no obvious cause however besides renal dysfunction. Hypomagnesemia -Recheck magnesium level in morning -Replete as needed Elevated bicarbonate level -Likely secondary to underlying CO2 retention chronically that this is a compensation for. -Trended up to 38.7, likely secondary to diuretic CODE STATUS: Full code DVT prophylaxis: Xarelto Diet: Carbohydrate consistent Attending attestation: I personally saw and examined patient the bedside this afternoon. He is in better spirits today and feels that he is doing much better. Feels that he has lost a lot of his initial presenting edema. I suspect the patient has not only underlying asthma but likely a component of sleep apnea as well. He is agreeable to proceed with sleep study. Regardless Ifeel that his degree of hypoxia is a bit higher than 1 would expect with only a recent diagnosis. Subsequently I will consult pulmonology for any further recommendations prior to his anticipated discharge tomorrow. His echocardiogram from recent hospitalization was sent over and he appears to have a preserved ejection fraction and no signs of pulmonary hypertension. His blood pressure will need better control going forward. Furthermore he should beon an MADYSON/ARB given his diabetic proteinuria and CKD rather than Norvasc. This can be initiated on discharge. For now we will continue to trend renal functionand monitor electrolytes while diuresing. Documented By: Yeny Newman DO, RES 06/20/23 0948 Signed By: <Electronically signed by DO JOSE Newman> 06/20/23 1025 <Electronically signed by Alban Arrington DO> 06/20/23 34[address] [facility] Work Phone: 1(277) 194-997010-30-2023 Progress note Author Alban Arrington [facility] June 19, 2023 10:05am Note Date/Time June 19, 2023 1 0:05am [facility] [address] [place] [address] Event Note Signed Patient: Nicole Lora MR#: [id number] [birth year] : 1960 Acct:[id number] Age/Sex: 63 / M Adm Date: 3 Loc: Room: 5F6513-5 Type: ADM IN Attending Dr: Alban Arrington DO Copies to: DO Reid Ferrer DO~ Status Event Note Event Note DATE OF EVENT: 06/19/23 TIME OF EVENT: 10:04 EVENT DETAILS: Patient was seen and examined at the bedside for second time today on rounds this morning. He remains alert, mildly hypertensive and reports that he is urinating a great deal with the initiation of diuretics. His breathing is roughly the same. Awaiting echocardiogram. Replete potassium and magnesium as needed. Documented By: Alban Arrington DO 06/19/2305 24 Signed By: <Electronically signed by Alban Arrington DO> 06/19/23 1005 [facility] Work Phone: 1(825) 702-851710-30-2023 History and physical note Author Alban Arrington [facility] June 19, 2023 5:20am Note Date/Time June 19, 2023 3 :28am [facility] [address] [place] [address] Hospitalist H&P Signed Patient: Nicole Lora MR#: [id number] [birth year] : 1960 Acct:[id number] Age/Sex: 63 / M Adm Date: 3 Loc: Room: [address] [place] [address] Type: ADM IN Attending Dr: Alban Arrington DO Copies to: DO Reid Ferrer DO~ HPI DATE OF EXAMINATION: 06/19/23 CHIEF COMPLAINT: Swelling HISTORY OF PRESENT ILLNESS: This patient is a 63-year-old male recently hospitalized at [facility] and discharged . He was reportedly treated for pneumonia at that time. He was discharged on prednisone and doxycycline. He appears to have been discharged on 4 L of nasal cannula that he is to wear [id number]. His primary complaint today is worsening edema diffusely since his discharge. His prior pneumonia symptoms he reports have resolved. His vitals on presentation today show significant hypertension 183/84, 91% oxygen saturation on 4 L nasal cannula. His heart rate is controlled in the 70s with respirations charted onlyat 18/min. His CBC is unremarkable however chemistries reveal hyperkalemia 5.2 and elevated bicarbonate level of 33.2. It is unclear regarding the patient's baseline kidney dysfunction but has mild elevation in BUN/creatinine at 47/1.53. He is hyperglycemic at 294. Urinalysis shows 100 protein and greater than 1000glucose. No other significant abnormalities. COVID flu and RSV testing done inthe ER were negative. High-sensitivity troponin within normal limits at 8.0. Brain natretic peptide level just within normal limits at 98.0. Suspect false negative as a result of obesity. The patient was provided 2 doses of 10 mg IV hydralazine for hypertension as well as 1 mg IV Bumex x1. The patient was subsequently admitted to the [facility] floor for treatment of acute on chronic hypoxic respiratory failure and suspected CHF. On arrival to the floor the patient states he is breathing better and denies anyfevers or chills. He reports no ongoing chest pain but noticed his swelling is gotten worse since his recent discharge. Denies palpitations. Patient does report acid pain consistent with his prior history of heartburn. Physical Examination: GENERAL APPEARANCE: Alert, up in bed AAOx3 HEENT: NCAT, MMM CARDIAC: Normal S1 and S2. No S3, S4 or murmurs. LUNGS: Clear to auscultation anteriorly, distant breath sounds due to body habitus ABDOMEN: Obese protuberant abdomen, soft, no tenderness elicited MUSCULOSKELETAL: No joint erythema or tenderness. EXTREMITIES: No clubbing, cyanosis. Diffuse edema of all 4 extremities, more concentrated to the bilateral lower extremities, 3-4+ PSYCHIATRIC: Appropriate mood and affect Assessment and plan: 1. Acute on chronic hypoxic respiratory failure BNP likely a false negative due to excess adipose. Possible patient received aggressive IV hydration during his hospitalization for pneumonia however this isunclear. Irregardless he has worsening hypoxia now, congested chest x-ray and severe edema. Will obtain echocardiogram and diurese with 40 mg IV Lasix twice daily. Replete potassium and magnesium as needed. Monitor these along with renal function with daily labs. Patient has no infectious symptoms presently and has completed a week worth of antibiotics when considering his 4-day hospitalization and 3 days since discharge on doxycycline. We will stop antibiotics and observe. 2. Chronic asthma Patient was within a prednisone taper since discharge. We will continue a lowerdose prednisone taper here as well. No significant wheeze presently. The steroids may be driving up his blood pressure and blood sugar however. His homeSymbicort twice daily can be continued. He only recently was discharged on taemm-zmm-lafke 4 L O2. He may have been fluid overloaded at that time as well. 3. Hypertensive urgency 4. Chronic hypertension This likely precipitated his CHF. Received low-dose IV hydralazine. Will provide a nitroglycerin patch and hold home amlodipine as this is likely making his edema worse. 5. Acute congestive heart failure, unspecified type Obtain echo. Diurese as above. 6. Insulin-dependent diabetes mellitus We will continue the patient's 40 units twice daily long-acting insulin. Additionally we will add a sliding scale. With ongoing glucocorticoid use he islikely to exhibit ongoing hyperglycemia. Will adjust accordingly. 7. Acute kidney injury versus chronic kidney disease Patient certainly has risk factors for CKD with diabetes and hypertension. No prior baseline to compare. Will monitor with diuresis. 8. Hyperkalemia This is mild in nature and should lower with the diuretics provided. No obviouscause however besides renal dysfunction. 9. Elevated bicarbonate level Patient may have underlying CO2 retention chronically that this is a compensation for. The loop diuretics as above will likely worsen this. Review of Systems Review of Systems All other systems reviewed & are negative unless noted below or in HPI [facility] Medical History Amputation of one or more toes Asthma Diabetes mellitus, type 2 Social History Smoking Status: Never smoker Substance Use Type: None Meds Medications and Allergies Allergies Penicillins Allergy (Verified 06/18/23 21:40) Rash Home Medications amlodipine 10 mg tablet 10 mg PO BID 06/19/23 [History Confirmed 06/19/23] budesonide-formoterol HFA 160 mcg-4.5 mcg/actuation aerosol inhaler (Symbicort) 2 puff inhalation BID 06/19/23 [History Confirmed 06/19/23] doxycycline hyclate 100 mg capsule 100 mg PO BID 06/19/23 [History Confirmed 06/19/23] gabapentin 600 mg tablet 600 mg PO TID 06/19/23 [History Confirmed 06/19/23] insulin glargine U-300 conc 300 unit/mL (3 mL) subcutaneous pen (Toujeo Max U- 300 SoloStar) 40 unit subcut BID 06/19/23 [History Confirmed 06/19/23] insulin lispro 100 unit/mL subcutaneous solution (Humalog U-100 Insulin) 06/19/23 [History Confirmed 06/19/23] linagliptin 2.5 mg-metformin 1,000 mg tablet (Jentadueto) 1 tab PO BID 06/19/23 [History Confirmed 06/19/23] pantoprazole 40 mg tablet,delayed release 40 mg PO DAILY 06/19/23 [History Confirmed 06/19/23] prednisone 10 mg tablet 10 mg PO DAILY 06/19/23 [History Confirmed 06/19/23] ropinirole 1 mg tablet 1 mg PO QHS 06/19/23 [History Confirmed 06/19/23] Exam Physical Exam Vital Signs: Temp Pulse Resp BP Pulse Ox O2 Del Method O2 Flow Rate 98.5 F 71 18 180/91 H 91 L Nasal Cannula 6 06/18/23 21:43 06/19/23 02:56 06/19/23 02:56 06/19/23 02:56 06/19/23 02:56 06/19/23 02:56 06/19/23 02:56 Results Lab Results Labs: Laboratory Last Values Corrected WBC 6.7 X10E3/uL (4.1-10.5) 06/18/23 22:08 Uncorrected WBC Count 6.7 x10E3/uL (4.1-10.5) 06/18/23 22:08 RBC 5.30 X10E6/uL (3.90-5.60) 06/18/23 22:08 Hgb 14.9 g/dL (13.0-17.0) 06/18/23 22:08 Hct 46.7 % (38.8-50.0) 06/18/23 22:08 MCV 88.2 fl (83.5-101) 06/18/23 22:08 MCH 28.2 pg (27.5-35.2) 06/18/23 22:08 MCHC 32.0 g/dL (32.5-35.6) L 06/18/23 22:08 RDW 15.4 % (12.0-14.8) H 06/18/23 22:08 Plt Count 214 x10E3/uL (150-450) 06/18/23 22:08 MPV 7.2 fl (6.6-10.1) 06/18/23 22:08 Neut % (Auto) 66.8 % (.) 06/18/23 22:08 Lymph % (Auto) 20.2 % (.) 06/18/23 22:08 Mccreary % (Auto) 9.2 % (.) 06/18/23 22:08 Eos % (Auto) 3.1 % (.) 06/18/23 22:08 Baso % (Auto) 0.7 % (.) 06/18/23 22:08 Nucleat RBC Rel Count 0.1 /100 WBC (0-0.5) 06/18/23 22:08 Neut # (Auto) 4.5 x10E3/uL (1.8-7.7) 06/18/23 22:08 Lymph # (Auto) 1.4 x10E3/uL (1.00-4.8) 06/18/23 22:08 Mccreary # (Auto) 0.6 x10E3/uL (0.0-0.8) 06/18/23 22:08 Eos # (Auto) 0.2 x10E3/uL (0.0-0.45) 06/18/23 22:08 Baso # (Auto) 0.0 x10E3/uL (0.0-0.2) 06/18/23 22:08 Monocyte Dist Width 15.12 % (0.00-20.00) 06/18/23 22:08 PHA Creatinine Clear 71.87 06/18/23 22:08 Sodium 138 mmol/L (136-145) 06/18/23 22:08 Potassium 5.2 mmol/L (3.5-5.1) H 06/18/23 22:08 Chloride 102 mmol/L (98-107) 06/18/23 22:08 Carbon Dioxide 33.2 mmol/L (21.0-31.0) H 06/18/23 22:08 Anion Gap 8.0 mEq/L (6.0-15.0) 06/18/23 22:08 BUN 47 mg/dL (7-25) H 06/18/23 22:08 Creatinine 1.51 mg/dL (0.70-1.30) H 06/18/23 22:08 Est GFR (CKD-EPI) 51.256 mL/Min 06/18/23 22:08 Glucose 294 mg/dL (70-100) H 06/18/23 22:08 Calcium 8.8 mg/dL (8.6-10.3) 06/18/23 22:08 Troponin I High Sens 8.0 pg/mL (0.0-20.0) 06/18/23 22:08 B-Natriuretic Peptide 98.0 pg/mL (5-100) 06/18/23 22:08 Urine Color Yellow (Yellow) 06/18/23 23:26 Urine Appearance Clear (Clear) 06/18/23 23:26 Urine pH 5.5 (5.0-9.0) 06/18/23 23:26 Ur Specific [place] 1.020 (1.001-1.030) 06/18/23 23:26 Urine Protein 100 mg/dL (Negative) H 06/18/23 23:26 Urine Glucose (UA) >=1000 mg/dL (Normal) H 06/18/23 23:26 Urine Ketones Negative (Negative) 06/18/23 23:26 Urine Occult Blood Negative (Negative) 06/18/23 23:26 Urine Nitrite Negative (Negative) 06/18/23 23:26 Urine Bilirubin Negative (Negative) 06/18/23 23:26 Urine Urobilinogen Normal mg/dL (Normal) 06/18/23 23:26 Ur Leukocyte Esterase Negative (Negative) 06/18/23 23:26 Urine RBC 0-1 /HPF (0-4) 06/18/23 23:26 Urine WBC None seen /HPF (0-4) 06/18/23 23:26 Ur Squamous Epith Cells 0-1 /HPF (0-2) 06/18/23 23:26 Urine Bacteria None seen (None Seen) 06/18/23 23:26 Hyaline Casts None seen /LPF (0-8) 06/18/23 23:26 SARS-CoV-2 Rap RNA(RT-PCR) Negative (Negative) 06/18/23 22:08 Microbiology Results Micro: Microbiology - Results from entire visit 06/18/23 22:08 Nasopharyngeal SARS-CoV-2, Influenza & RSV (PCR) - Final Assessment & Plan IP vs OBS Justification Based on differential dx, clinical care plan, and risk of adverse events, if untreated, in my clinical judgement this patient requires an acute care setting as: INPATIENT because of an expectation of an over 2 midnight stay. Estimated length of stay (# of days): 4 Documented By: Alban Arrington DO 06/19/2311 10 Signed By: <Electronically signed by Alban Arrington DO> 06/19/23 05[address] [facility] Work Phone: [phone] 785-434110-26-2023 Evaluation + Plan noteExtracted from: Title:Discharge Note Author:Mingo Pillai DO Date:06/15/23 Discharge To, Anticipated II - Home independently Discharged to - Home independently Prescriptions Albuterol (Eqv-ProAir HFA) 90 mcg/inh inhalation aerosol, 2 puff(s), Inhalation, q6hr, PRN, 11 refills albuterol 0.083% Inh Harriet 3 mL, 2.5 mg= 3 mL, Inhalation, q4hr, PRN, 5 refills amLODIPine 10 mg Tab, 10 mg= 1 tab(s), Oral, Daily, 4 refills, Not taking duloxetine 60 mg oral delayed release capsule, 60 mg= 1 cap(s), Oral, Daily, 11 refills, Not taking Freestyle Sage 2 [place], See Instructions Freestyle Sage 2 Sensors, See Instructions, 3 refills gabapentin 600 mg Tab, 600 mg= 1 tab(s), Oral, TID, 11 refills Glucometer, See Instructions Glucometer test strips, See Instructions, 11 refills guaiFENesin 600 mg ER Tab, 1200 mg= 2 tab(s), Oral, BID Insulin Pen [place] 31g x 8 mm, See Instructions, 4 refills Jentadueto 2.5 mg-1000 mg oral tablet, 1 tab(s), Oral, BID, 4 refills lancets, See Instructions, 11 refills losartan 100 mg Tab, 100 mg= 1 tab(s), Oral, Daily, 4 refills NovoLOG FlexPen 100 units/mL injectable solution, See Instructions, 5 refills predniSONE 10 mg Tab, 10 mg= 1 tab(s), Oral, As Directed Protonix 40 mg Tab-DR, 40 mg= 1 tab(s), Oral, Daily, 6 refills ropinirole 1 mg Tab, 1 mg= 1 tab(s), Oral, qPM, 4 refills Symbicort 160/4.5 inhalation aerosol with adapter, 2 puff(s), Inhalation, BID, 6 refills Touashley Max SoloStar 300 units/mL subcutaneous solution, 40 unit(s), SubCutaneous, BID, 5 refills Ventolin HFA 90 mcg/inh Aerosol, 2 puff(s), Inhalation, q4hr, PRN, 5 refills Home atorvastatin 40 mg Tab, 40 mg= 1 tab(s), Oral, Daily Beet Root, See Instructions Cinnamon 500 mg oral capsule, 500 mg= 1 cap(s), Oral, Daily Flax Seed Oil, See Instructions magnesium oxide, 165 mg, Chewed, Daily Vitamin D3 2000 intl units, 50 mcg, Chewed, Daily Zinc 140 mg (as elemental zinc 50 mg) oral tablet, 140 mg= 1 tab(s), Oral, Daily With When Contact Information [facility] 06/21/2023 09:30 AM EDT Additional Instructions: Ida LYMAN, Pippa Mabry, PUL, KATY Within 2 to 4 weeks [address] [facility]) [place] [address]- Additional Instructions: Call for followup appointment [place] [address]- Business (1) Additional Instructions: Please call the office to make a follow up appiontment. You are new to the office. Thank you. Hypoxia Community-Acquired Pneumonia, Adult, [id number] Extracted from: Title:APSO Note Author:Annabella Goldman Date:06/15/23 Acute respiratory failure wi th hypoxia and hypercapnia (J96.01: Acute respiratory failure with hypoxia) Suspect 2/2 AECOPD c/b fluid overload and untreated TC/OHS H/o mild-moderate COPD (last PFTs 01/02, FEV1 70%) TC non-compliant with CPAP Plan: - Currently on 4L NC with O2 sat 93-97% -- significant desaturation without O2 - Titrate O2 for sats 90-94% - Continue CPAP qHS - Continue bronchodilators - Wean solumedrol to prednisone taper over the next 5-7 days - Procal neg, no acute infiltrates, afebrile --> completed 5 days course for atypical pneumonia (doxy D1, azithro D2-5) - RVP neg - Lasix held d/t worsening AMY and hyperkalemia --> Nephrology consulted, appreciate recs - Autoimmune workup showed positive KAREN and Anti-dsDNA but CRP was low --> if pt does have an undiagnosed autoimmune disorder, having a low CRP would suggest this is not contributing to his current respiratory failure --> Pt should follow up with Rheumatology as outpatient - Encourage IS and OOB - Adamant about leaving, would qualify for home O2. Would need to be coordinated with desat study and case management - Recommend symbicort, albuterol at home with close OP f/u in 4-[address] Donahue or Dr Mendez - Recommend outpatient PFTs and sleep study - Discussed with the hospitalist. With shared decision making, OK for DC with home O2 from pulmonary standpoint Extracted from: Title:PCCM progress note Author:Zarina Alex Jr., PA-C Date:06/14/23 1. Acute respiratory failure with hypoxia and hypercapnia (J96.01: Acute respiratory failure with hypoxia) Suspect 2/2 AECOPD c/b fluid overload and untreated TC/OHS H/o mild-moderate COPD (last PFTs 01/02, FEV1 70%) TC non-compliant with CPAP Plan: - Currently on 4L NC - Titrate O2 for sats 92-96% - Continue CPAP qHS - Continue bronchodilators - Wean solumedrol to 40mg daily - Procal neg, no acute infiltrates, afebrile --> will continue azithromycin for now - RVP neg - Lasix held d/t worsening AMY and hyperkalemia --> Nephrology consulted - Pt is non-compliant with CPAP d/t discomfort --> mask and settings adjusted and pt states he is more comfortable on it now - Autoimmune workup showed positive KAREN and Anti-dsDNA but CRP was low --> if pt does have an undiagnosed autoimmune disorder, having a low CRP would suggest this is not contributing to his current respiratory failure --> Pt should follow up with Rheumatology as outpatient - Encourage IS and OOB - Recommend outpatient PFTs and sleep study Orders: guaifenesin, 1,200 mg = 2 tab(s), Tab-ER, Oral, BID, NOW, Start date 06/14/23 9:22:00 EDT, 06/14/23 9:22:00 EDT Addendum by Ida LYMAN Pippa Mabry on June 14, 2023 15:59:41 EDT 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 His history, physical exam, assessment and plan were done in collaboration. I performed an independent physical examination. I agree with all the above. Improving but remains with high oxygen requirement currently at 4 L. Exam appears to be unremarkable. His CRP levels are negative. I doubt the significance of positive double-stranded DNA with a negative CRP level and lupus pneumonitis appears to be unlikely at this point. Continue with antibiotics. Cut down his systemic steroids continue with bronchodilator therapy. Encourage incentive spirometry use. Wean down his FiO2 as tolerated. Extracted from: Title:Inpatient Consultation-Floor Code* Author: Hugo Sales MD Date:06/14/23 Impression and Plan 1. Acute kidney Injury: Likely contrast related nephropathy and volume mediated changes. Cr. 1.6mg/dL on admission, increased to 2.5, however with IVF, did show improvement. Baseline cr 1.5-1.8mg/dL. -CTA 06/11. Diuresed 06/12 and 06/12. -UA today with 4-10 hyaline cast indicative of renal hypoperfusion. - Renal US pending. - Has good urine output - continue to hold losartan as outpt. Can heplock IVF. Cr is close to baseline. 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 Hyperkalemia: K 5.9, responded to medication. - Hyperkalemia protocol now - on lokelma but no need to continue as outpt. continue to hold losartan as outpt 3. HTN: BP stable. -continue to hold losartan for AMY 4. Acute respiratory failure - management per primary and pulm, currently on 4l NC 5. DM: uncontrolled. - Continue to hold metformin for AMY 6. CKD III: baseline cr 1.5-1.8mg/dL. CKD likely d/t diabetic kidney disease. Was scheduled for HFU in our office 09/09/2021 but was a no show. Will make another appointment on Jul 18 @ 3:00 pm. Extracted from: Title:APSO Note Author:Mingo Pillai DO e:06/14/23 1. Acute respiratory failure with hypoxia and hypercapnia (J96.01: Acute respiratory failure with hypoxia) Secondary to multiple factors including possible pulmonary hypertension, obesity hypoventilation syndrome, history of asthma Increased oxygen needs, prior to nightly BiPAP pt was still on high flow 45% Echo negative for acute findings Pulmonology consulted and following patient, will discuss case with pulm Patient received 1 dose of Lasix yesterday, will likely repeat today Pulmonary toilet, DuoNebs, incentive spirometer, out of bed at least twice a day CT of chest on 06/11 showed mild to moderate probable atelectasis and/or edema, possible atypical pneumonia, postinflammatory infectious fibrosis changes, drug toxicity and connective tissue disease, trace right pleural effusion Patient states baseline weight is approximately 300 pounds, currently 310 pounds, strict I's and O's, daily weights. pt appears to be 5 kg over admission weight as well Desaturation test for possible home O2 We will await pulmonology recommendations Ordered: [facility] Care/Day Moderate 35 Minutes [id number] 2. Elevated brain natriuretic peptide (BNP) level (R79.89: Other specified abnormal findings of blood chemistry) despite echo negative for acute findings, cxr was concerning for fluid congestion 3. TC (obstructive sleep apnea) (G47.33: Obstructive sleep apnea (adult) (pediatric)) BiPap qHS and PRN 4. Hyperkalemia (E87.5: Hyperkalemia) 2/2 elevated glucose as well as elevated Cr, improved Status post [facility] Nephrology consulted and following trend control glucose tele 5. Asthma (J45.909: Unspecified asthma, uncomplicated) Steroids 40 mg 3 times daily Continue DuoNebs Pulmonary consulted 6. Type 2 diabetes mellitus (E11.9: Type 2 diabetes mellitus without complications) Accu-Cheks before meals and at bedtime Continue 40 units Lantus morning and 20 units at night 7. Hypertension (I10: Essential (primary) hypertension) norvasc, d/c losartan Monitor BP, as needed hydralazine 8. CKD (chronic kidney disease) (N18.9: Chronic kidney disease, unspecified) baseline 1.5-1.8 Monitor - increased Cr will consult nephrology - check renal US 9. Hyperlipidemia (E78.5: Hyperlipidemia, unspecified) statin 10. Chronic GERD (K21.9: Gastro-esophageal reflux disease without esophagitis) hold PPI due to elevated Cr 11. Diabetes mellitus with neuropathy (E11.40: Type 2 diabetes mellitus with diabetic neuropathy, unspecified) gabapentin 12. Restless leg syndrome (G25.81: Restless legs syndrome) ropinirole at bedtime Orders: amlodipine, 5 mg = 1 tab(s), Tab, Oral, Daily, Routine, Start date 06/15/23 9:00:00 EDT, 06/14/23 16:36:00 EDT hydrALAZINE, 10 mg = 0.5 mL, Injection, IV Push, q4hr PRN Other (see comment), Routine, Start date 06/14/23 16:36:00 EDT, give if SBP greater than 180, 06/14/23 16:36:00 EDT insulin lispro, 50 unit(s) = 0.5 mL, Injection-Insulin, SubCutaneous, Once, Stop date 06/13/23 16:00:00 EDT, Routine, Start date 06/13/23 16:00:00 EDT Automated Diff Basic Metabolic Panel Basic Metabolic Panel Basic Metabolic Panel CBC w/ Auto Diff eGFR eGFR US Renal Extracted from: Title:Inpatient Consultation-Floor Code* Author: Sasha Stevens NP Date:06/13/23 Impression and Plan 1. Acute kidney Injury: Likely contrast related nephropathy and volume mediated changes. Cr. 1.6mg/dL on admission, now 2.5mg/dL. Baseline cr 1.5-1.8mg/dL. -CTA 06/11. Diuresed 06/12 and 06/12. -UA today with 4-10 hyaline cast indicative of renal hypoperfusion. - Renal US pending. - Minimal uop documented. Please monitor strict I & O - Hold diuretics. Will gently hydrate with IV fluids at 50ml/hour. 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 Hyperkalemia: K 5.9, it appears only albuterol has been given. - Hyperkalemia protocol now -Will also start Lokelma 10g TID 3. HTN: BP stable. -continue to hold losartan for AMY 4. Acute respiratory failure - management per primary and pulm, currently on 4l NC 5. DM: uncontrolled. - Continue to hold metformin for AMY 6. CKD III: baseline cr 1.5-1.8mg/dL. CKD likely d/t diabetic kidney disease. Was scheduled for HFU in our office 09/09/2021 but was a no show. Extracted from: Title:PCCM progress note Author:Nehal Robles PA-C, Zarina Mbary Date:06/13/23 1. Acute respiratory failure with hypoxia and hypercapnia (J96.01: Acute respiratory failure with hypoxia) Suspect 2/2 AECOPD c/b fluid overload H/o mild-moderate COPD (last PFTs 01/02, FEV1 70%) TC non-compliant with CPAP Plan: - Currently on 4L NC - Titrate O2 for sats 92-96% - Continue bronchodilators - Continue solumedrol 40mg q8h, will hold budesonide for now - Procal neg, no acute infiltrates, afebrile --> will continue azithromycin for now - RVP neg - Lasix held d/t worsening AMY and hyperkalemia --> Nephrology consulted - Pt is non-compliant with CPAP d/t comfort --> mask and settings adjusted and pt states he is more comfortable on it now - Encourage IS and OOB - Recommend outpatient PFTs and sleep study Orders: albuterol-ipratropium, 3 mL, Soln-Inh, Inhalation, QID, Routine, Start date 06/12/23 20:00:00 EDT methylPREDNISolone, 40 mg = 1 mL, Injection, IV Push, q8hrFT, Routine, Start date 06/13/23 0:00:00 EDT methylPREDNISolone, 40 mg = 1 mL, Injection, IV Push, Once, Stop date 06/12/23 18:00:00 EDT, Start date 06/12/23 18:00:00 EDT Continuous Positive Airway Pressure Addendum by Jodee Giang on June 14, 2023 13:10:03 EDT Patient qualified for 4L/NC of home Oxygen. Patient has lung disease of Asthma, TC and Resp Failure. Patient will improve at home with home oxygen. Patient is mobile and will be able to use portable Oxygen. Addendum by Jodee Giang on June 14, 2023 13:21:12 EDT Error on addendum meant to go to DR Onesimo wall. Extracted from: Title:APSO Note Author:Mingo Pillai DO e:06/13/23 1. Acute respiratory failure with hypoxia and hypercapnia (J96.01: Acute respiratory failure with hypoxia) Secondary to multiple factors including possible pulmonary hypertension, obesity hypoventilation syndrome, history of asthma Increased oxygen needs, prior to nightly BiPAP pt was still on high flow 45% Echo negative for acute findings Pulmonology consulted and following patient, will discuss case with pulm Patient received 1 dose of Lasix yesterday, will likely repeat today Pulmonary toilet, DuoNebs, incentive spirometer, out of bed at least twice a day CT of chest on 06/11 showed mild to moderate probable atelectasis and/or edema, possible atypical pneumonia, postinflammatory infectious fibrosis changes, drug toxicity and connective tissue disease, trace right pleural effusion Patient states baseline weight is approximately 300 pounds, currently 310 pounds, strict I's and O's, daily weights. pt appears to be 5 kg over admission weight as well Ordered: [facility] Care/Day High 50 Minutes [id number] 2. Elevated brain natriuretic peptide (BNP) level (R79.89: Other specified abnormal findings of blood chemistry) echo normal but CXR yesterday showed vascular congestion cardiomegaly 3. TC (obstructive sleep apnea) (G47.33: Obstructive sleep apnea (adult) (pediatric)) BiPAP at night and PRN 4. Hyperkalemia (E87.5: Hyperkalemia) 2/2 elevated glucose as well as elevated Cr will consult nephrology Continue breathing treatments Trend 5. Asthma (J45.909: Unspecified asthma, uncomplicated) Steroids 40 mg 3 times daily Continue DuoNebs Pulmonary consulted 6. Type 2 diabetes mellitus (E11.9: Type 2 diabetes mellitus without complications) Accu-Cheks before meals and at bedtime Continue 40 units Lantus twice daily with SSI 7. Hypertension (I10: Essential (primary) hypertension) Holding losartan due to elevated creatinine Monitor BP, as needed hydralazine 8. CKD (chronic kidney disease) (N18.9: Chronic kidney disease, unspecified) baseline 1.5-1.8 Monitor - increased Cr will consult nephrology 9. Hyperlipidemia (E78.5: Hyperlipidemia, unspecified) statin 10. Chronic GERD (K21.9: Gastro-esophageal reflux disease without esophagitis) PPI should hold due to elevated Cr 11. Diabetes mellitus with neuropathy (E11.40: Type 2 diabetes mellitus with diabetic neuropathy, unspecified) Continue gabapentin 600 mg 3 times daily, may need renally adjusted 12. Restless leg syndrome (G25.81: Restless legs syndrome) Ropinirole at bedtime Orders: furosemide, 40 mg = 4 mL, Injection, IV Push, Once, Stop date 06/12/23 11:00:00 EDT, Routine, Start date 06/12/23 11:00:00 EDT, 06/12/23 10:05:00 EDT heparin, 5,000 unit(s) = 1 mL, Injection, SubCutaneous, q8hrFT for 30 day(s), Stop date 07/12/23 23:59:00 EST, Routine, Start date 06/13/23 0:00:00 EDT insulin glargine, 40 unit(s) = 0.4 mL, Injection-Insulin, SubCutaneous, BID, Routine, Start date 06/13/23 9:00:00 EDT Automated Diff Basic Metabolic Panel Basic Metabolic Panel Basic Metabolic Panel CBC w/ Auto Diff CBC w/ Auto Diff Consult to Nephrology Creatinine Urine eGFR eGFR Osmolality Urine Place in Status Sodium Level Urine Strict Intake and Output XR Chest Single View Addendum by Riki Pillai DO, am on June 13, 2023 11:04:01 EDT Chronic diabetic foot ulcer left foot measuring approximately 1.3 cm x 1.5 cm x 0.3 cm. No tunneling/undermining. This was present on arrival. Continue wound care Addendum by Jodee Giang on June 14, 2023 13:18:22 EDT Patient qualified for 4L/NC of home Oxygen. Patient has lung disease of Asthma, TC and Resp Failure. Patient will improve at home with home oxygen. Patient is mobile and will be able to use portable Oxygen. Extracted from: Title:PCCM Consult Note Author:Nehal Robles PA-C, Sheyla Mabry Date:06/12/23 1. Acute respiratory failure with hypoxia and hypercapnia, (J96.01: Acute respiratory failure with hypoxia)Acute hypoxemic respiratory failure Suspect 2/2 AECOPD c/b fluid overload H/o mild-moderate COPD (last PFTs 01/02, FEV1 70%) TC non-compliant with CPAP Plan: - Currently on 45% 50L [place] - Titrate O2 for sats 92-96% - Continue bronchodilators - Start solumedrol 40mg q8h, will hold budesonide for now - Procal neg, no acute infiltrates, afebrile --> will continue azithromycin for now - RVP neg - Recommend continued diuresis --> lasix increased to 40mg daily - Pt is non-compliant with CPAP d/t comfort - Encourage IS and OOB - Recommend outpatient PFTs and sleep study Orders: albuterol-ipratropium, 3 mL, Soln-Inh, Inhalation, QID, Routine, Start date 06/12/23 20:00:00 EDT azithromycin + Sodium Chloride 0.9% intravenous solution 250 mL, 500 mg = 1 EA, Injection, IV Piggyback, Daily for 3 day(s), Stop date 06/15/23 11:40:00 EDT, NOW, Start date 06/12/23 11:41:00 EDT, 250 mL/hr, Infuse over 60 minute(s) methylPREDNISolone, 40 mg = 1 mL, Injection, IV Push, q8hr, Routine, Start date 06/12/23 18:00:00 EDT, 06/12/23 17:17:00 EDT Add on Test Procalcitonin Addendum by Ida LYMAN, Pippa Mabry on June 12, 2023 17:23:20 EDT 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 His history, physical exam, assessment and plan were done in collaboration. I performed an independent physical examination. I agree with all the above. Acute hypoxic respiratory failure: With gradually worsening symptoms appear to have been progressing for the past several weeks. High oxygen requirement of 45% on high flow nasal cannula but clinically appears to be in relatively minimal respiratory distress. CT of the chest was reviewed with scattered groundglass opacities with some mosaic pattern with a broad differential diagnosis including infectious etiologies, inflammatory, volume overload among others. His procalcitonin level is unremarkable. I will add azithromycin to cover for atypical pneumonia. Check CRP levels and rheumatology screen and consider adding steroids based on the results and his progression. (Received 1 dose of Solu-Medrol on admission and 125 mg). Continue with diuresis per primary team. Consider bronchoscopy with transbronchial biopsies if no improvement with above measures. Extracted from: Title:APSO Note Author:Mingo Pillai DO e:06/12/23 1. Acute hypoxemic respirato ry failure (J96.01: Acute respiratory failure with hypoxia) Secondary to multiple factors including possible pulmonary hypertension, obesity hypoventilation syndrome, history of asthma Increased oxygen needs, currently on high flow Echo pending Pulmonology consulted and following patient, will discuss case with pulm Patient received 1 dose of Lasix yesterday, will likely repeat today Pulmonary toilet, DuoNebs, incentive spirometer, out of bed at least twice a day CT of chest on 06/11 showed mild to moderate probable atelectasis and/or edema, possible atypical pneumonia, postinflammatory infectious fibrosis changes, drug toxicity and connective tissue disease, trace right pleural effusion Patient states baseline weight is approximately 300 pounds, currently 310 pounds, strict I's and O's, daily weights Ordered: [facility] Care/Day High 50 Minutes [id number] 2. Elevated brain natriuretic peptide (BNP) level (R79.89: Other specified abnormal findings of blood chemistry) Treatment as above 3. TC (obstructive sleep apnea) (G47.33: Obstructive sleep apnea (adult) (pediatric)) States that he cannot tolerate CPAP at night Pulmonology consulted and following patient Bicarb elevated at 32 4. Hyperkalemia (E87.5: Hyperkalemia) K is 5.6 from 4.6 We will give dose of Lasix Continue breathing treatments Monitor 5. Asthma (J45.909: Unspecified asthma, uncomplicated) No wheezing currently on exam Continue DuoNebs Pulmonary consulted 6. Type 2 diabetes mellitus (E11.9: Type 2 diabetes mellitus without complications) Accu-Cheks before meals and at bedtime Continue 20 units Lantus twice daily with SSI 7. Hypertension (I10: Essential (primary) hypertension) Restart losartan today continue to monitor, 8. CKD (chronic kidney disease) (N18.9: Chronic kidney disease, unspecified) Appears to be 1.5-1.8 Monitor 9. Hyperlipidemia (E78.5: Hyperlipidemia, unspecified) Statin 10. Chronic GERD (K21.9: Gastro-esophageal reflux disease without esophagitis) PPI 11. Diabetes mellitus with neuropathy (E11.40: Type 2 diabetes mellitus with diabetic neuropathy, unspecified) Continue gabapentin 600 mg 3 times daily 12. Restless leg syndrome (G25.81: Restless legs syndrome) Ropinirole time Orders: furosemide, 40 mg = 4 mL, Injection, IV Push, Once, Stop date 06/12/23 11:00:00 EDT, Routine, Start date 06/12/23 11:00:00 EDT, 06/12/23 10:05:00 EDT losartan, 100 mg = 2 tab(s), Tab, Oral, Daily, Routine, Start date 06/12/23 9:00:00 EDT, 06/12/23 7:17:00 EDT Basic Metabolic Panel CBC w/ Auto Diff Dressing Care/Change Strict Intake and Output XR Chest Single View Extracted from: Title:Admission H & P Author:Jose LYMAN, [facility] Date:06/11/23 Acute hypoxemic respiratory failure Elevated BNP TC Obesity Asthma -Echo to assess EF, diastology and RVSP, likely has pulm htn and is potentially suffering from an exacerbation of thus and or obesity hypoventilation syndrome and or progression of asthma (dont feel he has an acute exacerbation of asthma) -No wheezing don't' see the benefit of steroids at this time denis. in a DM pt -Trace Pleural effusion noted, trace, iv Lasix x 1, check BMP and Mg tomorrow, dry lung strategy -Respiratory panel by PCR for sake of thorough completeness, no evidence clinically and on labs or imaging of an infectious etiology -NO ANC no radiological evidence of PNA per official read no antibiotics at this time -Duo nebs -Desat tomorrow -CPAP qHs and PRN -I/S -Pulmonology consulted DM -Finger sticks and sliding scale HTN -No chest pain -Tele and home meds CKD -Avoid nephrotoxic drugs Time: 55 mins DVT PPX: Heparin Plan: As above Extracted from: Title:ED Note Author:Greyson ENGLE, Paddy Bustos te:06/11/23 Hypoxia (R09.02: Hypoxemia) Left against medical advice (Z53.29: Procedure and treatment not carried out because of patient's decision for other reasons) Pneumonia (J18.9: Pneumonia, unspecified organism) Orders: albuterol-ipratropium, 3 mL, Soln-Inh, Inhalation, Once, Stop date 06/11/23 14:06:00 EDT, STAT, Start date 06/11/23 14:06:00 EDT doxycycline, 100 mg = 1 cap(s), Oral, BID, # 20 cap(s), Refills(s) 0, Pharmacy: [facility] #[id number], 182, cm, 06/11/23 13:54:00 EDT, Height/Length Dosing, 139.6, kg, 06/11/23 13:54:00 EDT, Weight Dosing doxycycline + Sodium Chloride 0.9% intravenous solution 100 mL, 100 mg = 1 EA, IV Piggyback, Once, Stop date 06/11/23 15:37:00 EDT, STAT, Start date 06/11/23 15:37:00 EDT, 100 mL/hr, Infuse over 60 minute(s), 06/11/23 15:37:00 EDT methylPREDNISolone, 125 mg = 2 mL, Injection, IV Push, Once, Stop date 06/11/23 15:37:00 EDT, STAT, Start date 06/11/23 15:37:00 EDT, 06/11/23 15:37:00 EDT predniSONE, 50 mg = 1 tab(s), Oral, Daily, X 7 day(s), # 7 tab(s), Refills(s) 0, Pharmacy: [facility] #[id number], 182, cm, 06/11/23 13:54:00 EDT, Height/Length Dosing, 139.6, kg, 06/11/23 13:54:00 EDT, Weight Dosing Automated Diff B-Type Natriuretic Peptide Basic Metabolic Panel Blood Culture Charcoal Blood Culture Charcoal Blood Gas Art, with Lytes, Gluc, Lact CBC w/ Auto Diff Continuous Pulse Oximetry CTA Chest ED Cardiac Monitoring eGFR Lactic Acid Oxygen Therapy PT & PTT Rapid [place] [place] Saline Lock Insert Troponin 0 Hr. Troponin 3 Hr. Troponin 6 Hr. Troponin 9 Hr. Future Appointments Appointment Date:06/21/2023 09:30:00 AM Scheduled Provider:Sukh Harrington DPM [facility] Appointment Type: Follow Up Visit (FT) Appointment Date:08/24/2023 10:00:00 AM Scheduled Provider:Migue STROUD MD Location:[facility] Appointment Type: Open Future Scheduled Tests Radiology* XR Chest 2 Views 05/15/23 * XR Chest 2 Views 05/15/23 [facility]10-22-2023 Hospital Discharge instructions Patient Education 06/11/2023 20:24:39 Hypoxia Hypoxia Hypoxia is a condition that happens when there is a lack of oxygen in the body's tissues and organs. When there is not enough oxygen, organs cannot work as they should. This causes serious problems throughout the body and in the brain. What are the causes? This condition may be caused by: Exposure to high altitude. A collapsed lung (pneumothorax). Lung infection (pneumonia). Lung injury. Long-term (chronic) lung disease, such as chronic obstructive pulmonary disease (COPD) or emphysema. Fluid collecting in the chest cavity (congestive heart failure), or blood collecting in the chest cavity (hemothorax). Food, saliva, or vomit getting into the airway (aspiration). Reduced blood flow (ischemia). Severe blood loss. Slow or shallow breathing (hypoventilation). Blood disorders, such as anemia. Carbon monoxide or cyanide poisoning. The heart suddenly stopping (cardiac arrest). Medicines or recreational drugs with severe sedating effects. Drowning. Choking. What are the signs or symptoms? Symptoms of this condition include: Headache. Feeling tired (fatigue). Forgetfulness. Nausea. Confusion. Shortness of breath. Dizziness. Bluish color of the skin, lips, or nail beds (cyanosis). Change in consciousness or awareness. If hypoxia is not treated, it can lead to convulsions, loss of consciousness (coma), or brain damage, which can be life-threatening. How is this diagnosed? This condition may be diagnosed based on: A physical exam. Blood tests. A test that measures how much oxygen is in your blood (pulse oximetry). This is done with a sensor that is placed on your finger, toe, or earlobe. Imaging, such as a chest X-ray or CT scan. Tests to check your lung function (pulmonary function tests). A test to check the electrical activity of your heart (electrocardiogram, ECG). You may have other tests to determine the cause of your hypoxia. How is this treated? Treatment for this condition depends on what is causing the hypoxia. You will likely be treated with oxygen therapy. This may be done by giving you oxygen through a face mask or through tubes in yournose. Your health care provider may also recommend other therapies to treat the underlying cause of your hypoxia. Follow these instructions at home: Take sjzm-dhv-wjmzhgm and prescription medicines only as told by your health care provider. Do not use any products that contain nicotine or tobacco. These products include cigarettes, chewing tobacco, and vaping devices, such as e-cigarettes. If you need help quitting, ask your health careprovider. Avoid secondhand smoke. Work with your health care provider to manage any chronic conditions you have that may be causing hypoxia, such as COPD. Keep all follow-up visits. This is important. Contact a health care provider if: You have a fever. You become extremely short of breath when you exercise. Get help right away if: Your shortness of breath gets worse, especially with normal or very little activity. You have trouble breathing, even after treatment. Your skin, lips, or nail beds have a bluish color. You become confused or you cannot think properly. You have chest pain. These symptoms may be an emergency. Get help right away. Call 911. Do not wait to see if the symptoms will go away. Do not drive yourself to the hospital. Summary Hypoxia is a condition that happens when there is a lack of oxygen in the body's tissues and organs. If hypoxia is not treated, it can lead to convulsions, loss of consciousness (coma), or brain damage. Symptoms of hypoxia can include a headache, shortness of breath, confusion, nausea, and a bluish skin color. Hypoxia has many possible causes, including exposure to high altitude, carbon monoxide poisoning, or other health issues, such as blood disorders or cardiac arrest. Hypoxia is usually treated with oxygen therapy. This information is not intended to replace advice given to you by your health care provider. Make sure you discuss any questions you have with your health care provider. Document Revised: 03/08/2022 Document Reviewed: 03/08/2022 Get Smart Content Patient Education 2022 [employer]. 06/11/2023 20:24:39 Community-Acquired Pneumonia, Adult, Obdw-fn-Cyea Community-Acquired Pneumonia, Adult Pneumonia is an infection of the lungs. It causes irritation and swelling in the airways of the lungs. Mucus and fluid may also build up inside the airways. This may cause coughing and trouble breathing. One type of pneumonia can happen while you are in a hospital. A different type can happen when you are not in a hospital (community-acquired pneumonia). What are the causes? This condition is caused by germs (viruses, bacteria, or fungi). Some types of germs can spread from person to person. Pneumonia is not thought to spread from person to person. What increases the risk? You are more likely to develop this condition if: You have a long-term (chronic) disease, such as: ?Disease of the lungs. This may be chronic obstructive pulmonary disease (COPD) or asthma. ?Heart failure. ?Cystic fibrosis. ?Diabetes. ?Kidney disease. ?Sickle cell disease. ?HIV. You have other health problems, such as: ?Your body's defense system (immune system) is weak. ?A condition that may cause you to breathe in fluids from your mouth and nose. You had your spleen taken out. You do not take good care of your teeth and mouth (poor dental hygiene). You use or have used tobacco products. You travel where the germs that cause this illness are common. You are near certain animals or the places they live. You are older than 65 years of age. What are the signs or symptoms? Symptoms of this condition include: A cough. A fever. Sweating or chills. Chest pain, often when you breathe deeply or cough. Breathing problems, such as: ?Fast breathing. ?Trouble breathing. ?Shortness of breath. Feeling tired (fatigued). Muscle aches. How is this treated? Treatment for this condition depends on many things, such as: The cause of your illness. Your medicines. Your other health problems. Most adults can be treated at home. Sometimes, treatment must happen in a hospital. Treatment may include medicines to kill germs. Medicines may depend on which germ caused your illness. Very bad pneumonia is rare. If you get it, you may: Have a machine to help you breathe. Have fluid taken away from around your lungs. Follow these instructions at home: Medicines Take qbkb-rsf-vrihwuj and prescription medicines only as told by your doctor. Take cough medicine only if you are losing sleep. Cough medicine can keep your body from taking mucus away from your lungs. If you were prescribed an antibiotic medicine, take it as told by your doctor. Do not stop taking the antibiotic even if you start to feel better. Lifestyle Do not drink alcohol. Do not use any products that contain nicotine or tobacco, such as cigarettes, e- cigarettes, and chewing tobacco. If you need help quitting, ask your doctor. Eat a healthy diet. This includes a lot of vegetables, fruits, whole grains, low-fat dairy products, and low-fat (lean) protein. General instructions Rest a lot. Sleep for at least 8 hours each night. Sleep with your head and neck raised. Put a few pillows under your head or sleep in a reclining chair. Return to your normal activities as told by your doctor. Ask your doctor what activities are safe for you. Drink enough fluid to keep your pee (urine) pale yellow. If your throat is sore, rinse your mouth often with salt water. To make salt water, dissolve 1 tsp (3 6 g) of salt in 1 cup (237 mL) of warm water. Keep all follow-up visits as told by your doctor. This is important. How is this prevented? You can lower your risk of pneumonia by: Getting the pneumonia shot (vaccine). These shots have different types and schedules. Ask your doctor what works best for you. Think about getting this shot if: ?You are older than 65 years of age. ?You are 19 65 years of age and: ?You are being treated for cancer. ?You have long-term lung disease. ?You have other problems that affect your body's defense system. Ask your doctor if you have one ofthese. Getting your flu shot every year. Ask your doctor which type of shot is best for you. Going to the dentist as often as told. Washing your hands often with soap and water for at least 20 seconds. If you cannot use soap and water, use hand tuber operator. Contact a doctor if: You have a fever. You lose sleep because your cough medicine does not help. Get help right away if: You are short of breath and this gets worse. You have more chest pain. Your sickness gets worse. This is very serious if: ?You are an older adult. ?Your body's defense system is weak. You cough up blood. These symptoms may be an emergency. Do not wait to see if the symptoms will go away. Get medical help right away. Call your local emergency services (911 in the [place] Do not drive yourself to the hospital. Summary Pneumonia is an infection of the lungs. Community-acquired pneumonia affects people who have not been in the hospital. Certain germs can cause this infection. This condition may be treated with medicines that kill germs. For very bad pneumonia, you may need a hospital stay and treatment to help with breathing. This information is not intended to replace advice given to you by your health care provider. Make sure you discuss any questions you have with your health care provider. Document Revised: 05/19/2020 Document Reviewed: 05/19/2020 Elsevier Patient Education 2022 [employer]. Follow Up Care 06/11/2023 13:47:13 With:Ida LYMAN, AIMEE Castro SUR Address: [address] [facility] [place] [address]- When:2 to 4 weeks Comments:Call for followup appointment With[place] Address:Unknown When:06/21/2023 09:30:00 With:Mounika Brooke Address: [address] [place] [address]- Business (1) When: Unknown Comments:Please call the office to make a follow up appiontment. You are new to the office. Thank you. [facility]08-14-2023 Hospital Discharge instructions Follow Up Care 04/03/2023 10:10:15 With:MARLI LYMAN, ЮЛИЯ Camarena Address: When:Within 3 Month(s) [facility] 12-15-2022 Hospital Discharge instructions Patient Education 08/04/2022 16:53:59 Hyperglycemia Hyperglycemia Hyperglycemia occurs when the level of sugar (glucose) in the blood is too high. Glucose is a type of sugar that provides the body's main source of energy. Certain hormones (insulin and glucagon) control the level of glucose in the blood. Insulin lowers blood glucose, and glucagon increases blood glucose. Hyperglycemia can result from having too little insulin in the bloodstream, or from the bodynot responding normally to insulin. Hyperglycemia occurs most often in people who have diabetes (diabetes mellitus), but it can happen in people who do not have diabetes. It can develop quickly, and it can be life-threatening if it causes you to become severely dehydrated (diabetic ketoacidosis or hyperglycemic hyperosmolar state). Severe hyperglycemia is a medical emergency. What are the causes? If you have diabetes, hyperglycemia may be caused by: Diabetes medicine. Medicines that increase blood glucose or affect your diabetes control. Not eating enough, or not eating often enough. Changes in physical activity level. Being sick or having an infection. If you have prediabetes or undiagnosed diabetes: Hyperglycemia may be caused by those conditions. If you do not have diabetes, hyperglycemia may be caused by: Certain medicines, including steroid medicines, beta-blockers, epinephrine, and thiazide diuretics. Stress. Serious illness. Surgery. Diseases of the pancreas. Infection. What increases the risk? Hyperglycemia is more likely to develop in people who have risk factors for diabetes, such as: Having a family member with diabetes. Having a gene for type 1 diabetes that is passed from parent to child (inherited). Living in an area with cold weather conditions. Exposure to certain viruses. Certain conditions in which the body's disease-fighting (immune) system attacks itself (autoimmune disorders). Being overweight or obese. Having an inactive (sedentary) lifestyle. Having been diagnosed with insulin resistance. Having a history of prediabetes, gestational diabetes, or polycystic ovarian syndrome (PCOS). Being of [place]orean-[place], -[place]vadorean, /, or / descent. What are the signs or symptoms? Hyperglycemia may not cause any symptoms. If you do have symptoms, they may include early warning signs, such as: Increased thirst. Hunger. Feeling very tired. Needing to urinate more often than usual. Blurry vision. Other symptoms may develop if hyperglycemia gets worse, such as: Dry mouth. Loss of appetite. Fruity-smelling breath. Weakness. Unexpected or rapid weight gain or weight loss. Tingling or numbness in the hands or feet. Headache. Skin that does not quickly return to normal after being lightly pinched and released (poor skin turgor). Abdominal pain. Cuts or bruises that are slow to heal. How is this diagnosed? Hyperglycemia is diagnosed with a blood test to measure your blood glucose level. This blood test is usually done while you are having symptoms. Your health care provider may also do a physical exam and review your medical history. You may have more tests to determine the cause of your hyperglycemia, such as: A fasting blood glucose (FBG) test. You will not be allowed to eat (you will fast) for at least 8 hours before a blood sample is taken. An A1c (hemoglobin A1c) blood test. This provides information about blood glucose control over the previous 2 3 months. An oral glucose tolerance test (OGTT). This measures your blood glucose at two times: ?After fasting. This is your baseline blood glucose level. ?Two hours after drinking a beverage that contains glucose. How is this treated? Treatment depends on the cause of your hyperglycemia. Treatment may include: Taking medicine to regulate your blood glucose levels. If you take insulin or other diabetes medicines, your medicine or dosage may be adjusted. Lifestyle changes, such as exercising more, eating healthier foods, or losing weight. Treating an illness or infection, if this caused your hyperglycemia. Checking your blood glucose more often. Stopping or reducing steroid medicines, if these caused your hyperglycemia. If your hyperglycemia becomes severe and it results in hyperglycemic hyperosmolar state, you must be hospitalized and given IV fluids. Follow these instructions at home: General instructions Take gtpt-zxb-qleoydn and prescription medicines only as told by your health care provider. Do not use any products that contain nicotine or tobacco, such as cigarettes and e-cigarettes. If you need help quitting, ask your health care provider. Limit alcohol intake to no more than 1 drink per day for non women and 2 drinks per day formen. One drink equals 12 oz of beer, 5 oz of wine, or 1 oz of hard liquor. Learn to manage stress. If you need help with this, ask your health care provider. Keep all follow-up visits as told by your health care provider. This is important. Eating and drinking Maintain a healthy weight. Exercise regularly, as directed by your health care provider. Stay hydrated, especially when you exercise, get sick, or spend time in hot temperatures. Eat healthy foods, such as: ?Lean proteins. ?Complex carbohydrates. ?Fresh fruits and vegetables. ?Low-fat dairy products. ?Healthy fats. Drink enough fluid to keep your urine clear or pale yellow. If you have diabetes: Make sure you know the symptoms of hyperglycemia. Follow your diabetes management plan, as told by your health care provider. Make sure you: ?Take your insulin and medicines as directed. ?Follow your exercise plan. ?Follow your meal plan. Eat on time, and do not skip meals. ?Check your blood glucose as often as directed. Make sure to check your blood glucose before and after exercise. If you exercise longer or in a different way than usual, check your blood glucose moreoften. ?Follow your sick day plan whenever you cannot eat or drink normally. Make this plan in advance with your health care provider. Share your diabetes management plan with people in your workplace, school, and household. Check your urine for ketones when you are ill and as told by your health care provider. Carry a medical alert card or wear medical alert jewelry. Contact a health care provider if: Your blood glucose is at or above 240 mg/dL (13.3 mmol/L) for 2 days in a row. You have problems keeping your blood glucose in your target range. You have frequent episodes of hyperglycemia. Get help right away if: You have difficulty breathing. You have a change in how you think, feel, or act (mental status). You have nausea or vomiting that does not go away. These symptoms may represent a serious problem that is an emergency. Do not wait to see if the symptoms will go away. Get medical help right away. Call your local emergency services (911 in the [place] Do not drive yourself to the hospital. Summary Hyperglycemia occurs when the level of sugar (glucose) in the blood is too high. Hyperglycemia is diagnosed with a blood test to measure your blood glucose level. This blood test is usually done while you are having symptoms. Your health care provider may also do a physical exam and review your medical history. If you have diabetes, follow your diabetes management plan as told by your health care provider. Contact your health care provider if you have problems keeping your blood glucose in your target range. This information is not intended to replace advice given to you by your health care provider. Make sure you discuss any questions you have with your health care provider. Document Released: 01/31/2002 Document Revised: 04/24/2017 Document Reviewed: 04/24/2017 Get Smart Content Patient Education 2020 [employer]. Follow Up Care 08/04/2022 13:03:59 With:Migue STROUD Address: [address] [place], [place] [id number] [facility] (1) When:08/07/2022 16:52:09 Comments:Call the office of your primary care doctor to arrange for follow-up within the above-stated timeframe. Follow-up with your primary care doctor about this ED visit. You should review your labs, imaging, and diagnoses from this ED visit with your primary care physician. If you were prescribed medications you should discuss possible side-effects and drug interactions with your pharmacist. Call 911 or go to the nearest Emergency Department if you develop any new or worsening symptoms.Follow-up with Dr. Stroud. Take your diabetes medications as prescribed by Dr. Stroud. You may return to the emergency department at any time to continue your care. [facility]12-15-2022 Evaluation + Plan noteExtracted from: Title:ED Note Author:Juan MOFFETT Mone LugoSue Date:1 10/05/21 Dehydration (E86.0: Dehydrat ion) Left against medical advice (Z53.29: Procedure and treatment not carried out because of patient's decision for other reasons) Severe hyperglycemia due to diabetes mellitus (E11.65: Type 2 diabetes mellitus with hyperglycemia) Orders: insulin regular, 10 unit(s) = 0.1 mL, Injection-Insulin, IV Push, Once, Stop date 08/04/22 15:17:00 EST, STAT, Start date 08/04/22 15:17:00 EST Sodium Chloride 0.9% intravenous solution 1,000 mL, 1,000 mL, IV, 20 mL/hr, STAT, Start date 08/04/22 13:24:00 EST, 50 hour(s), Total volume (mL): 1,000, 131 kg, 2.57, m2 Automated Diff Basic Metabolic Panel Capillary Glucose POC CBC w/ Auto Diff eGFR Extra Blue Tube Extra SST Tube Saline Lock Insert Troponin 0 Hr. Troponin 3 Hr. TSH With T4fr Reflex XR Chest Single View Future Appointments Appointment Date:09/13/2022 01:00:00 PM Scheduled Provider:Migue STROUD MD Location:[facility] Appointment Type:[facility]08-09-2022 Hospital Discharge instructions Follow Up Care 03/29/2022 14:12:55 With:Migue STROUD [facility] Address: When:Within 1 Month(s) [facility] 07-20-2022 Hospital Discharge instructions Patient Education 03/09/2022 01:22:46 Hyperglycemia Hyperglycemia Hyperglycemia occurs when the level of sugar (glucose) in the blood is too high. Glucose is a type of sugar that provides the body's main source of energy. Certain hormones (insulin and glucagon) control the level of glucose in the blood. Insulin lowers blood glucose, and glucagon increases blood glucose. Hyperglycemia can result from having too little insulin in the bloodstream, or from the bodynot responding normally to insulin. Hyperglycemia occurs most often in people who have diabetes (diabetes mellitus), but it can happen in people who do not have diabetes. It can develop quickly, and it can be life-threatening if it causes you to become severely dehydrated (diabetic ketoacidosis or hyperglycemic hyperosmolar state). Severe hyperglycemia is a medical emergency. What are the causes? If you have diabetes, hyperglycemia may be caused by: Diabetes medicine. Medicines that increase blood glucose or affect your diabetes control. Not eating enough, or not eating often enough. Changes in physical activity level. Being sick or having an infection. If you have prediabetes or undiagnosed diabetes: Hyperglycemia may be caused by those conditions. If you do not have diabetes, hyperglycemia may be caused by: Certain medicines, including steroid medicines, beta-blockers, epinephrine, and thiazide diuretics. Stress. Serious illness. Surgery. Diseases of the pancreas. Infection. What increases the risk? Hyperglycemia is more likely to develop in people who have risk factors for diabetes, such as: Having a family member with diabetes. Having a gene for type 1 diabetes that is passed from parent to child (inherited). Living in an area with cold weather conditions. Exposure to certain viruses. Certain conditions in which the body's disease-fighting (immune) system attacks itself (autoimmune disorders). Being overweight or obese. Having an inactive (sedentary) lifestyle. Having been diagnosed with insulin resistance. Having a history of prediabetes, gestational diabetes, or polycystic ovarian syndrome (PCOS). Being of [place]orean[place], -Salvadorean, /, or / descent. What are the signs or symptoms? Hyperglycemia may not cause any symptoms. If you do have symptoms, they may include early warning signs, such as: Increased thirst. Hunger. Feeling very tired. Needing to urinate more often than usual. Blurry vision. Other symptoms may develop if hyperglycemia gets worse, such as: Dry mouth. Loss of appetite. Fruity-smelling breath. Weakness. Unexpected or rapid weight gain or weight loss. Tingling or numbness in the hands or feet. Headache. Skin that does not quickly return to normal after being lightly pinched and released (poor skin turgor). Abdominal pain. Cuts or bruises that are slow to heal. How is this diagnosed? Hyperglycemia is diagnosed with a blood test to measure your blood glucose level. This blood test is usually done while you are having symptoms. Your health care provider may also do a physical exam and review your medical history. You may have more tests to determine the cause of your hyperglycemia, such as: A fasting blood glucose (FBG) test. You will not be allowed to eat (you will fast) for at least 8 hours before a blood sample is taken. An A1c (hemoglobin A1c) blood test. This provides information about blood glucose control over the previous 2 3 months. An oral glucose tolerance test (OGTT). This measures your blood glucose at two times: ?After fasting. This is your baseline blood glucose level. ?Two hours after drinking a beverage that contains glucose. How is this treated? Treatment depends on the cause of your hyperglycemia. Treatment may include: Taking medicine to regulate your blood glucose levels. If you take insulin or other diabetes medicines, your medicine or dosage may be adjusted. Lifestyle changes, such as exercising more, eating healthier foods, or losing weight. Treating an illness or infection, if this caused your hyperglycemia. Checking your blood glucose more often. Stopping or reducing steroid medicines, if these caused your hyperglycemia. If your hyperglycemia becomes severe and it results in hyperglycemic hyperosmolar state, you must be hospitalized and given IV fluids. Follow these instructions at home: General instructions Take zahb-dnp-fmibdom and prescription medicines only as told by your health care provider. Do not use any products that contain nicotine or tobacco, such as cigarettes and e-cigarettes. If you need help quitting, ask your health care provider. Limit alcohol intake to no more than 1 drink per day for non women and 2 drinks per day formen. One drink equals 12 oz of beer, 5 oz of wine, or 1 oz of hard liquor. Learn to manage stress. If you need help with this, ask your health care provider. Keep all follow-up visits as told by your health care provider. This is important. Eating and drinking Maintain a healthy weight. Exercise regularly, as directed by your health care provider. Stay hydrated, especially when you exercise, get sick, or spend time in hot temperatures. Eat healthy foods, such as: ?Lean proteins. ?Complex carbohydrates. ?Fresh fruits and vegetables. ?Low-fat dairy products. ?Healthy fats. Drink enough fluid to keep your urine clear or pale yellow. If you have diabetes: Make sure you know the symptoms of hyperglycemia. Follow your diabetes management plan, as told by your health care provider. Make sure you: ?Take your insulin and medicines as directed. ?Follow your exercise plan. ?Follow your meal plan. Eat on time, and do not skip meals. ?Check your blood glucose as often as directed. Make sure to check your blood glucose before and after exercise. If you exercise longer or in a different way than usual, check your blood glucose moreoften. ?Follow your sick day plan whenever you cannot eat or drink normally. Make this plan in advance with your health care provider. Share your diabetes management plan with people in your workplace, school, and household. Check your urine for ketones when you are ill and as told by your health care provider. Carry a medical alert card or wear medical alert jewelry. Contact a health care provider if: Your blood glucose is at or above 240 mg/dL (13.3 mmol/L) for 2 days in a row. You have problems keeping your blood glucose in your target range. You have frequent episodes of hyperglycemia. Get help right away if: You have difficulty breathing. You have a change in how you think, feel, or act (mental status). You have nausea or vomiting that does not go away. These symptoms may represent a serious problem that is an emergency. Do not wait to see if the symptoms will go away. Get medical help right away. Call your local emergency services (911 in the [place] Do not drive yourself to the hospital. Summary Hyperglycemia occurs when the level of sugar (glucose) in the blood is too high. Hyperglycemia is diagnosed with a blood test to measure your blood glucose level. This blood test is usually done while you are having symptoms. Your health care provider may also do a physical exam and review your medical history. If you have diabetes, follow your diabetes management plan as told by your health care provider. Contact your health care provider if you have problems keeping your blood glucose in your target range. This information is not intended to replace advice given to you by your health care provider. Make sure you discuss any questions you have with your health care provider. Document Released: 01/31/2002 Document Revised: 04/24/2017 Document Reviewed: 04/24/2017 [employer] Patient Education 2020 [employer]. 03/09/2022 01:22:46 COVID-19 COVID-19 COVID-19 is a respiratory infection that is caused by a virus called severe acute respiratory syndrome coronavirus 2 (SARS-CoV-2). The disease is also known as coronavirus disease or novel coronavirus. In some people, the virus may not cause any symptoms. In others, it may cause a serious infection. The infection can get worse quickly and can lead to complications, such as: Pneumonia, or infection of the lungs. Acute respiratory distress syndrome or ARDS. This is fluid build-up in the lungs. Acute respiratory failure. This is a condition in which there is not enough oxygen passing from thelungs to the body. Sepsis or septic shock. This is a serious bodily reaction to an infection. Blood clotting problems. Secondary infections due to bacteria or fungus. The virus that causes COVID-19 is contagious. This means that it can spread from person to person through droplets from coughs and sneezes (respiratory secretions). What are the causes? This illness is caused by a virus. You may catch the virus by: Breathing in droplets from an infected person's cough or sneeze. Touching something, like a table or a doorknob, that was exposed to the virus (contaminated) and then touching your mouth, nose, or eyes. What increases the risk? Risk for infection You are more likely to be infected with this virus if you: Live in or travel to an area with a COVID-19 outbreak. Come in contact with a sick person who recently traveled to an area with a COVID-19 outbreak. Provide care for or live with a person who is infected with COVID-19. Risk for serious illness You are more likely to become seriously ill from the virus if you: Are 65 years of age or older. Have a long-term disease that lowers your body's ability to fight infection (immunocompromised). Live in a fdc or long-term care facility. Have a long-term (chronic) disease such as: ?Chronic lung disease, including chronic obstructive pulmonary disease or asthma ?Heart disease. ?Diabetes. ?Chronic kidney disease. ?Liver disease. Are obese. What are the signs or symptoms? Symptoms of this condition can range from mild to severe. Symptoms may appear any time from 2 to 14days after being exposed to the virus. They include: A fever. A cough. Difficulty breathing. Chills. Muscle pains. A sore throat. Loss of taste or smell. Some people may also have stomach problems, such as nausea, vomiting, or diarrhea. Other people may not have any symptoms of COVID-19. How is this diagnosed? This condition may be diagnosed based on: Your signs and symptoms, especially if: ?You live in an area with a COVID-19 outbreak. ?You recently traveled to or from an area where the virus is common. ?You provide care for or live with a person who was diagnosed with COVID-19. A physical exam. Lab tests, which may include: ?A nasal swab to take a sample of fluid from your nose. ?A throat swab to take a sample of fluid from your throat. ?A sample of mucus from your lungs (sputum). ?Blood tests. Imaging tests, which may include, X-rays, CT scan, or ultrasound. How is this treated? At present, there is no medicine to treat COVID-19. Medicines that treat other diseases are being used on a trial basis to see if they are effective against COVID-19. Your health care provider will talk with you about ways to treat your symptoms. For most people, the infection is mild and can be managed at home with rest, fluids, and vvry-pqk-gnzqgsd medicines. Treatment for a serious infection usually takes places in a hospital intensive care unit (ICU). It may include one or more of the following treatments. These treatments are given until your symptoms improve. Receiving fluids and medicines through an IV. Supplemental oxygen. Extra oxygen is given through a tube in the nose, a face mask, or a [place]. Positioning you to lie on your stomach (prone position). This makes it easier for oxygen to get into the lungs. Continuous positive airway pressure (CPAP) or bi-level positive airway pressure (BPAP) machine. This treatment uses mild air pressure to keep the airways open. A tube that is connected to a motor delivers oxygen to the body. Ventilator. This treatment moves air into and out of the lungs by using a tube that is placed in your windpipe. Tracheostomy. This is a procedure to create a hole in the neck so that a breathing tube can be inserted. Extracorporeal membrane oxygenation (ECMO). This procedure gives the lungs a chance to recover by taking over the functions of the heart and lungs. It supplies oxygen to the body and removes carbon dioxide. Follow these instructions at home: Lifestyle If you are sick, stay home except to get medical care. Your health care provider will tell you how long to stay home. Call your health care provider before you go for medical care. Rest at home as told by your health care provider. Do not use any products that contain nicotine or tobacco, such as cigarettes, e- cigarettes, and chewing tobacco. If you need help quitting, ask your health care provider. Return to your normal activities as told by your health care provider. Ask your health care provider what activities are safe for you. General instructions Take hlny-lgp-fmmlwms and prescription medicines only as told by your health care provider. Drink enough fluid to keep your urine pale yellow. Keep all follow-up visits as told by your health care provider. This is important. How is this prevented? There is no vaccine to help prevent COVID-19 infection. However, there are steps you can take to protect yourself and others from this virus. To protect yourself: Do not travel to areas where COVID-19 is a risk. The areas where COVID-19 is reported change often.To identify high-risk areas and travel restrictions, check the CDC travel website: wwwnc.cdc.gov/travel/notices If you live in, or must travel to, an area where COVID-19 is a risk, take precautions to avoid infection. ?Stay away from people who are sick. ?Wash your hands often with soap and water for 20 seconds. If soap and water are not available, usean alcohol-based hand tuber operator. ?Avoid touching your mouth, face, eyes, or nose. ?Avoid going out in public, follow guidance from your state and local health authorities. ?If you must go out in public, wear a cloth face covering or face mask. ?Disinfect objects and surfaces that are frequently touched every day. This may include: ?Counters and tables. ?Doorknobs and light switches. ?Sinks and faucets. ?Electronics, such as phones, remote controls, keyboards, computers, and tablets. To protect others: If you have symptoms of COVID-19, take steps to prevent the virus from spreading to others. If you think you have a COVID-19 infection, contact your health care provider right away. Tell yourhealth care team that you think you may have a COVID-19 infection. Stay home. Leave your house only to seek medical care. Do not use public transport. Do not travel while you are sick. Wash your hands often with soap and water for 20 seconds. If soap and water are not available, use alcohol-based hand tuber operator. Stay away from other members of your household. Let healthy household members care for children andpets, if possible. If you have to care for children or pets, wash your hands often and wear a mask.If possible, stay in your own room, separate from others. Use a different bathroom. Make sure that all people in your household wash their hands well and often. Cough or sneeze into a tissue or your sleeve or elbow. Do not cough or sneeze into your hand or into the air. Wear a cloth face covering or face mask. Where to find more information Centers for Disease Control and Prevention: www.cdc.gov/coronavirus/2019-ncov/index.html World Health Organization: www.who.int/health-topics/coronavirus Contact a health care provider if: You live in or have traveled to an area where COVID-19 is a risk and you have symptoms of the infection. You have had contact with someone who has COVID-19 and you have symptoms of the infection. Get help right away if: You have trouble breathing. You have pain or pressure in your chest. You have confusion. You have bluish lips and fingernails. You have difficulty waking from sleep. You have symptoms that get worse. These symptoms may represent a serious problem that is an emergency. Do not wait to see if the symptoms will go away. Get medical help right away. Call your local emergency services (911 in the [place] Do not drive yourself to the hospital. Let the emergency medical personnel know if you think you have COVID-19. Summary COVID-19 is a respiratory infection that is caused by a virus. It is also known as coronavirus disease or novel coronavirus. It can cause serious infections, such as pneumonia, acute respiratory distress syndrome, acute respiratory failure, or sepsis. The virus that causes COVID-19 is contagious. This means that it can spread from person to person through droplets from coughs and sneezes. You are more likely to develop a serious illness if you are 65 years of age or older, have a weak immunity, live in a fdc, or have chronic disease. There is no medicine to treat COVID-19. Your health care provider will talk with you about ways to treat your symptoms. Take steps to protect yourself and others from infection. Wash your hands often and disinfect objects and surfaces that are frequently touched every day. Stay away from people who are sick and wear amask if you are sick. This information is not intended to replace advice given to you by your health care provider. Make sure you discuss any questions you have with your health care provider. Document Released: 09/12/2019 Document Revised: 01/02/2020 Document Reviewed: 09/12/2019 [employer] Patient Education 2019 [employer] Follow Up Care 03/08/2022 22:47:15 With:Migue STROUD Address: [address] [place] [id number] Business (1) When:03/16/2022 [facility]07-19-2022 Evaluation + Plan noteExtracted from: Title:ED Note Author:Jose Miguel Phan DO Date :03/08/22 Acute COVID-19 (U07.1: COVID -19) Hyperglycemia due to diabetes mellitus (E11.65: Type 2 diabetes mellitus with hyperglycemia) Orders: acetaminophen, 650 mg = 2 tab(s), Tab, Oral, Once, Stop date 03/08/22 23:51:00 EDT, STAT, Start date 03/08/22 23:51:00 EDT, 03/08/22 23:51:00 EDT insulin regular, 10 unit(s), Injection-Insulin, SubCutaneous, Once, Stop date 03/09/22 0:09:00 EDT, STAT, Start date 03/09/22 0:09:00 EDT, 03/09/22 0:09:00 EDT insulin regular, Injection-Insulin, Misc, Once, Stop date 03/09/22 0:25:34 EDT, Physician Stop, 03/09/22 0:25:34 EDT Sodium Chloride 0.9% intravenous solution, 1,000 mL, Soln-IV, IV, Once, Stop date 03/08/22 22:49:00 EDT, STAT, Start date 03/08/22 22:49:00 EDT, Infuse over 61, minute(s) Automated Diff Basic Metabolic Panel Beta-hydroxybutyrate Capillary Glucose POC CBC w/ Auto Diff ECG 12 Lead Adult ED Cardiac Monitoring eGFR Hepatic Function Panel Influenza A&B Ag Rapid [place] [place] Routine Capillary Glucose POC UA With Cult Reflex XR Chest Single View Future Appointments Appointment Date:03/29/2022 01:00:00 PM Scheduled Provider:Migue STROUD MD Location:[facility] Appointment Type:[facility]07-06-2022 Hospital Discharge instructions Follow Up Care 02/23/2022 13:55:05 With:Migue STROUD MD, [facility] Address: When:Within 3 Month(s) [facility] 05-10-2022 Hospital Discharge instructions Follow Up Care 12/28/2021 14:20:03 With:Migue STROUD MD, [facility] Address: When:Within 2 Month(s) [facility] Evaluation + Plan note Future Appointments Appointment Date:01/11/2022 01:40:00 PM Scheduled Provider:Migue STROUD MD Location:[facility] Appointment Type:[facility] Evaluation + Plan note Future Appointments Appointment Date:03/08/2022 01:20:00 PM Scheduled Provider:Migue STROUD MD Location:[facility] Appointment Type:[facility] Evaluation + Plan note Future Appointments Appointment Date:04/08/2022 09:00:00 AM Scheduled Provider: Location:[facility] Appointment Type:FM Medicare Wellness Subsequent Appointment Date:06/27/2022 02:20:00 PM Scheduled Provider:Migue STROUD MD Location:[facility] Appointment Type:[facility] Evaluation + Plan note Future Appointments Appointment Date:06/27/2022 02:20:00 PM Scheduled Provider:Migue STROUD MD Location:[facility] Appointment Type:[facility] Evaluation + Plan note Future Appointments Appointment Date:10/11/2022 02:20:00 PM Scheduled Provider:Migue STROUD MD Location:[facility] Appointment Type:[facility] Evaluation + Plan note Future Appointments Appointment Date:11/03/2022 10:00:00 AM Scheduled Provider:Migue STROUD MD Location:[facility] Appointment Type:[facility] Evaluation + Plan note Future Appointments Appointment Date:03/07/2023 10:40:00 AM Scheduled Provider:Migue STROUD MD Location:[facility] Appointment Type:[facility] Evaluation + Plan note Future Appointments Appointment Date:04/27/2023 09:40:00 AM Scheduled Provider:Migue STROUD MD Location:[facility] Appointment Type:[facility] Evaluation + Plan note Future Appointments Appointment Date:04/25/2023 03:30:00 PM Scheduled Provider:Smooth Harrington DPM [facility] Type:WC Follow Up Visit (FT) Appointment Date:04/26/2023 09:30:00 AM Scheduled Provider:Sukh Harrington DPM [facility] Appointment Type:WC Follow Up Visit (FT) Appointment Date:04/27/2023 09:40:00 AM Scheduled Provider:Migue STROUD MD [facility] App[facility]ments Appointment Date:04/26/2023 09:30:00 AM Scheduled Provider:Sukh Harrington DPM [facility] Appoint[facility] Type:WC Follow Up Visit (FT) Appointment Date:05/22/2023 01:20:00 PM Scheduled Provider:Migue STROUD MD Location:[facility] Future App[facility]ments Appointment Date:05/01/2023 11:15:00 AM Scheduled Provider: [facility] Appointment Type:WC Assessment (FT) Appointment Date:05/02/2023 04:00:00 PM Scheduled Provider:Smooth Harrington DPM [facility] Appointment Type:WC Follow Up Visit (FT) Appointment Date:05/22/2023 01:20:00 PM Scheduled Provider:Migue STROUD MD Location:[facility] Future Appointments Appointment Date:05/02/2023 04:00:00 PM Scheduled Provider:Smooth Harrington DPM [facility] Appointment Type:WC Follow Up Visit (FT) Appointment Date:05/22/2023 01:20:00 PM Scheduled Provider:Migue STROUD MD Location:[facility] Future Appointments Appointment Date:05/22/2023 01:20:00 PM Scheduled Provider:Migue STROUD MD Location:[facility] Future App[facility]ments Appointment Date:05/16/2023 08:30:00 AM Scheduled Provider: [facility]:PUL Pulmonary Function Test (FT) Appointment Date:05/22/2023 01:20:00 PM Scheduled Provider:Migue STROUD MD Location:[facility] Appointment Type: Open Appointment Date:06/05/2023 10:30:00 AM Scheduled Provider:Mary Mendez MD [facility] Appointment Type:Pulmonary Follow Up (FT) Future Scheduled Tests Radiology* XR Chest 2 Views 05/15/23 * [facility] Appointment Date:06/05/2023 10:30:00 AM Scheduled Provider:Mary Mendez MD Location[facility] Appointment Type:Pulmonary Follow Up (FT) Appointment Date:06/07/2023 10:15:00 AM Scheduled Provider:Sukh Harrington DPM [facility] Appointment Type:WC Follow Up Visit (FT) Appointment Date:08/24/2023 10:00:00 AM Scheduled Provider:Migue STROUD MD Location:[facility] Appointment Type: Open Future Scheduled Tests Radiology* XR Chest 2 Views 05/15/23 * XR Chest 2 Views 05/15/23 [facility] evaluation + Plan note Future Appointments Appointment Date:06/28/2023 09:45:00 AM Scheduled Provider:Sukh Harrington DPM [facility] Appointment Type:WC Follow Up Visit (FT) Appointment Date:08/24/2023 10:00:00 AM Scheduled Provider:Migue STROUD MD Location:[facility] Appointment Type: Open Future Scheduled Tests Radiology* XR Chest 2 Views 05/15/23 * [facility] 2 [facility] Appointment Date:06/28/2023 11:45:00 AM Scheduled Provider:Sukh Harrington DPM [facility] Appointment Type:WC Follow Up Visit (FT) Appointment Date:08/24/2023 10:00:00 AM Scheduled Provider:Migue STROUD MD Location:[facility] Appointment Type: Open Future Scheduled Tests Radiology* XR Chest 2 Views 05/15/23 * XR Chest 2 Views 05/15/23 [facility] evaluation + Plan note Future Appointments Appointment Date:07/19/2023 10:30:00 AM Scheduled Provider:Sukh Harrington DPM [facility] Appointment Type:WC Follow Up Visit (FT) Appointment Date:08/24/2023 10:00:00 AM Scheduled Provider:Migue STROUD MD Location:[facility] Appointment Type: Open Future Scheduled Tests Radiology* XR Chest 2 Views 05/15/23 * XR Chest 2 Views 05/15/23 [facility] App[facility]ments Appointment Date:08/02/2023 10:45:00 AM Scheduled Provider:Sukh Harrington DPM [facility] Appointment Type:WC Follow Up Visit (FT) Appointment Date:08/24/2023 10:00:00 AM Scheduled Provider:Migue STROUD MD Location:[facility] Appointment Type: Open Future Scheduled Tests Radiology* XR Chest 2 Views 05/15/23 * XR Chest 2 Views 05/15/23 [facility] App[facility]ments Appointment Date:08/16/2023 09:30:00 AM Scheduled Provider:Sukh Harrington DPM [facility] Appointment Type:WC Follow Up Visit (FT) Appointment Date:08/24/2023 10:00:00 AM Scheduled Provider:Migue STROUD MD Location:[facility] Appointment Type: Open Future Scheduled Tests Radiology* XR Chest 2 Views 05/15/23 * XR Chest 2 Views 05/15/23 [facility] App[facility]ments Appointment Date:08/24/2023 10:00:00 AM Scheduled Provider:Migue STROUD MD Location:[facility] Appointment Type: Open Appointment Date:08/30/2023 09:15:00 AM Scheduled Provider:Sukh Harrington DPM [facility] Appointment Type:WC Follow Up Visit (FT) Future Scheduled Tests Radiology* XR Chest 2 Views 05/15/23 * XR Chest 2 Views 05/15/23 [facility] App[facility]ments Appointment Date:08/30/2023 09:15:00 AM Scheduled Provider:Sukh Harrington DPM [facility] Appointment Type:WC Follow Up Visit (FT) Future Scheduled Tests Radiology* XR Chest 2 Views 05/15/23 * XR Chest 2 Views 05/15/23 [facility] Evaluation + Plan note Future Appointments Appointment Date:09/05/2023 03:15:00 PM Scheduled Provider:Smooth Harrington DPM [facility] Appointment Type:WC HBO Eval (FT) Appointment Date:09/13/2023 10:45:00 AM Scheduled Provider:Sukh Harrington DPM [facility] Appointment Type:WC Follow Up Visit (FT) Future Scheduled Tests Radiology* XR Chest 2 Views 05/15/23 * XR Chest 2 Views 05/15/23 [facility] App[facility]ments Appointment Date:09/13/2023 10:45:00 AM Scheduled Provider:Sukh Harrington DPM [facility] Appointment Type:WC Follow Up Visit (FT) Appointment Date:09/18/2023 01:00:00 PM Scheduled Provider: [facility] Appointment Type:WC HBO (FT) Future Scheduled Tests Radiology* XR Chest 2 Views 05/15/23 * XR Chest 2 Views 05/15/23 [facility] App[facility]ments Appointment Date:09/13/2023 10:45:00 AM Scheduled Provider:Sukh Harrington DPM [facility] Appointment Type:WC Follow Up Visit (FT) Appointment Date:09/13/2023 01:00:00 PM Scheduled Provider: [facility] Appointment Type:WC HBO (FT) Appointment Date:09/14/2023 01:00:00 PM Scheduled Provider: [facility] Appointment Type:WC HBO (FT) Appointment Date:09/18/2023 01:00:00 PM Scheduled Provider: [facility] Appointment Type:WC HBO (FT) Appointment Date:09/28/2023 11:30:00 AM Scheduled Provider:Nicole Thompson MD [facility] Appointment Type:WC HBO Re-Eval (FT) Future Scheduled Tests Radiology* XR Chest 2 Views 05/15/23 * XR Chest 2 Views 05/15/23 [facility] Future App[facility]ments Appointment Date:10/05/2023 11:00:00 AM Scheduled Provider: Location:[facility] Appointment Type:URO Nurse Visit Appointment Date:10/18/2023 09:00:00 AM Scheduled Provider:Taz THOMAS MD Location:[facility] Appointment Type:URO New Patient Appointment Date:10/18/2023 09:15:00 AM Scheduled Provider:Sukh Harrington DPM [facility] Type:WC Follow Up Visit (FT) Appointment Date:11/16/2023 09:00:00 AM Scheduled Provider: Location:[facility] Appointment Type:Urology CALL PAT FT Appointment Date:11/20/2023 01:15:00 PM Scheduled Provider: Location:[facility] Appointment Type:Urology FT Future Scheduled Tests Radiology* XR Chest 2 Views 05/15/23 * XR Chest 2 Views 05/15/23 [facility] App[facility]ments Appointment Date:10/18/2023 09:00:00 AM Scheduled Provider:Taz THOMAS MD Location:[facility] Appointment Type:URO New Patient Appointment Date:10/18/2023 09:15:00 AM Scheduled Provider:Sukh Harrington DPM [facility] Appoint[facility] Type:WC Follow Up Visit (FT) Appointment Date:11/01/2023 02:00:00 PM Scheduled Provider: Location:[facility] Appointment Type:URO Nurse Visit Appointment Date:11/16/2023 09:00:00 AM Scheduled Provider: Location:[facility] Appointment Type:Urology CALL PAT FT Appointment Date:11/20/2023 01:15:00 PM Scheduled Provider: Location:[facility] Appointment Type:Urology FT Future Scheduled Tests Radiology* XR Chest 2 Views 05/15/23 * XR Chest 2 Views 05/15/23 [facility] [employer]uation + Plan note Future Appointments Appointment Date:11/01/2023 02:00:00 PM Scheduled Provider: Location:[facility] Appointment Type:URO Nurse Visit Appointment Date:11/16/2023 09:00:00 AM Scheduled Provider: Location:[facility] Appointment Type:Urology CALL PAT FT Appointment Date:11/20/2023 12:00:00 PM Scheduled Provider: Location:[facility] Appointment Type:Urology FT Appointment Date:11/20/2023 01:15:00 PM Scheduled Provider: Location:[facility] Appointment Type:Urology FT Future Scheduled Tests Radiology* XR Chest 2 Views 05/15/23 * XR Chest 2 Views 05/15/23 [facility] Evaluation + Plan note Future Appointments Appointment Date:11/16/2023 09:00:00 AM Scheduled Provider: Location:[facility] Appointment Type:Urology CALL PAT FT Appointment Date:11/20/2023 12:00:00 PM Scheduled Provider: Location:[facility] Appointment Type:Urology FT Appointment Date:11/20/2023 01:15:00 PM Scheduled Provider: Location:[facility] Appointment Type:Urology FT Future Scheduled Tests Radiology* XR Chest 2 Views 05/15/23 * XR Chest 2 Views 05/15/23 [facility] Evaluation + Plan note Future Appointments Appointment Date:12/15/2023 01:30:00 PM Scheduled Provider: Location:[facility] Appointment Type:URO Nurse Visit Appointment Date:12/19/2023 01:00:00 PM Scheduled Provider:Smooth Harrington DPM [facility] Appointment Type:WC Follow Up Visit (FT) Appointment Date:12/20/2023 09:00:00 AM Scheduled Provider:Sukh Harrington DPM [facility] Appointment Type:WC Follow Up Visit (FT) Appointment Date:01/31/2024 10:30:00 AM Scheduled Provider: Location:[facility] Appointment Type:Urology CALL PAT FT Appointment Date:02/05/2024 01:15:00 PM Scheduled Provider: Location:[facility] Appointment Type:Urology FT Future Scheduled Tests Radiology* XR Chest 2 Views 05/15/23 * XR Chest 2 Views 05/15/23 [facility] Future App[facility]ments Appointment Date:12/19/2023 01:00:00 PM Scheduled Provider:Smooth Harrington DPM [facility] Appointment Type:WC Follow Up Visit (FT) Appointment Date:12/20/2023 11:15:00 AM Scheduled Provider:Sukh Harrington DPM [facility] Appointment Type:WC Follow Up Visit (FT) Appointment Date:01/12/2024 01:00:00 PM Scheduled Provider: Location:[facility] Appointment Type:URO Nurse Visit Appointment Date:01/31/2024 10:30:00 AM Scheduled Provider: Location:[facility] Appointment Type:Urology CALL PAT FT Appointment Date:02/05/2024 01:15:00 PM Scheduled Provider: Location:[facility] Appointment Type:Urology FT Future Scheduled Tests Radiology* XR Chest 2 Views 05/15/23 * XR Chest 2 Views 05/15/23 [facility] Evaluation + Plan note Future Appointments Appointment Date:12/26/2023 01:45:00 PM Scheduled Provider:Smooth Harrington DPM [facility] Appointment Type:WC Follow Up Visit (FT) Appointment Date:01/12/2024 01:00:00 PM Scheduled Provider: Location:[facility] Appointment Type:URO Nurse Visit Appointment Date:01/31/2024 10:30:00 AM Scheduled Provider: Location:[facility] Appointment Type:Urology CALL PAT FT Appointment Date:02/05/2024 01:15:00 PM Scheduled Provider: Location:[facility] Appointment Type:Urology FT Future Scheduled Tests Radiology* XR Chest 2 Views 05/15/23 * XR Chest 2 Views 05/15/23 [facility] App[facility]ments Appointment Date:01/02/2024 03:45:00 PM Scheduled Provider:Smooth Harrington DPM [facility] Appoint[facility] Type:WC Follow Up Visit (FT) Appointment Date:01/12/2024 01:00:00 PM Scheduled Provider: Location:[facility] Appointment Type:URO Nurse Visit Appointment Date:01/31/2024 10:30:00 AM Scheduled Provider: Location:[facility] Appointment Type:Urology CALL PAT FT Appointment Date:02/05/2024 01:15:00 PM Scheduled Provider: Location:[facility] Appointment Type:Urology FT Future Scheduled Tests Radiology* XR Chest 2 Views 05/15/23 * XR Chest 2 Views 05/15/23 [facility] Future Appointments Appointment Date:01/09/2024 02:45:00 PM Scheduled Provider:Smooth Harrington DPM [facility] Appointment Type:WC Follow Up Visit (FT) Appointment Date:01/12/2024 01:00:00 PM Scheduled Provider: Location:[facility] Appointment Type:URO Nurse Visit Appointment Date:01/31/2024 10:30:00 AM Scheduled Provider: Location:[facility] Appointment Type:Urology CALL PAT FT Appointment Date:02/05/2024 01:15:00 PM Scheduled Provider: Location:[facility] Appointment Type:Urology FT Future Scheduled Tests Radiology* XR Chest 2 Views 05/15/23 * XR Chest 2 Views 05/15/23 [facility] App[facility]ments Appointment Date:01/17/2024 10:00:00 AM Scheduled Provider:Sukh Harrington DPM [facility] Appoint[facility] Type:WC Follow Up Visit (FT) Appointment Date:01/31/2024 10:30:00 AM Scheduled Provider: Location:[facility] Appointment Type:Urology CALL PAT FT Appointment Date:02/05/2024 01:15:00 PM Scheduled Provider: Location:[facility] Appointment Type:Urology FT Future Scheduled Tests Radiology* XR Chest 2 Views 05/15/23 * XR Chest 2 Views 05/15/23 [facility] Evaluation + Plan note Future Appointments Appointment Date:01/23/2024 01:00:00 PM Scheduled Provider:Smooth Harrington DPM [facility] Appoint[facility] Type:WC Follow Up Visit (FT) Appointment Date:01/31/2024 10:30:00 AM Scheduled Provider: Location:[facility] Appointment Type:Urology CALL PAT FT Appointment Date:02/05/2024 01:15:00 PM Scheduled Provider: Location:[facility] Appointment Type:Urology FT Future Scheduled Tests Radiology* XR Chest 2 Views 05/15/23 * XR Chest 2 Views 05/15/23 [facility] Future Appointments Appointment Date:01/31/2024 09:45:00 AM Scheduled Provider:Sukh Harrington DPM [facility] Appoint[facility] Type:WC Follow Up Visit (FT) Appointment Date:01/31/2024 10:30:00 AM Scheduled Provider: Location:[facility] Appointment Type:Urology CALL PAT FT Appointment Date:02/05/2024 01:15:00 PM Scheduled Provider: Location:[facility] Appointment Type:Urology FT Future Scheduled Tests Radiology* XR Chest 2 Views 05/15/23 * XR Chest 2 Views 05/15/23 [facility] Future Appointments Appointment Date:02/05/2024 01:00:00 PM Scheduled Provider: Location:[facility] Appointment Type:Urology FT Appointment Date:02/14/2024 10:15:00 AM Scheduled Provider:Sukh Harrington DPM [facility] Type:WC Follow Up Visit (FT) Future Scheduled Tests Radiology* XR Chest 2 Views 05/15/23 * [facility] Appointment Date:02/14/2024 08:30:00 AM Scheduled Provider: Location:[facility] Appointment Type:URO Nurse Visit Appointment Date:02/14/2024 10:15:00 AM Scheduled Provider:Sukh Harrington DPM [facility] Appoint[facility] Type:WC Follow Up Visit (FT) Appointment Date:02/28/2024 07:45:00 AM Scheduled Provider:Taz THOMAS MD Location:[facility] Appointment Type:URO Office Visit Future Scheduled Tests Radiology* XR Chest 2 Views 05/15/23 * XR Chest 2 Views 05/15/23 [facility] Future Appointments Appointment Date:02/14/2024 08:30:00 AM Scheduled Provider: Location:[facility] Appointment Type:URO Nurse Visit Appointment Date:02/28/2024 07:45:00 AM Scheduled Provider:[facility] Office Visit Appointment Date:02/28/2024 10:45:00 AM Scheduled Provider:Sukh Harrington DPM [facility] Type:WC Follow Up Visit (FT) Future Scheduled Tests Radiology* XR Chest 2 Views 05/15/23 * XR Chest 2 Views 05/15/23 [facility] evaluation + Plan note Future Appointments Appointment Date:02/15/2024 08:30:00 AM Scheduled Provider: Location:[facility] Appointment Type:URO Nurse Visit Appointment Date:02/28/2024 07:45:00 AM Scheduled Provider:Taz THOMAS MD Location:[facility] Appointment Type:URO Office Visit Appointment Date:02/28/2024 10:45:00 AM Scheduled Provider:Sukh Harrington DPM [facility] Appointment Type:WC Follow Up Visit (FT) Future Scheduled Tests Radiology* XR Chest 2 Views 05/15/23 * XR Chest 2 Views 05/15/23 [facility] evaluation + Plan note Future Appointments Appointment Date:02/28/2024 07:45:00 AM Scheduled Provider:Taz THOMAS MD Location:[facility] Appointment Type:URO Office Visit Appointment Date:02/28/2024 10:45:00 AM Scheduled Provider:Sukh Harrington DPM [facility] Appointment Type:WC Follow Up Visit (FT) Future Scheduled Tests Radiology* XR Chest 2 Views 05/15/23 * XR Chest 2 Views 05/15/23 [facility] evaluation + Plan note Future Appointments Appointment Date:03/06/2024 10:45:00 AM Scheduled Provider:Sukh Harrington DPM [facility] Appointment Type:WC Follow Up Visit (FT) Appointment Date:09/04/2024 03:15:00 PM Scheduled Provider:Taz THOMAS MD Location:[facility] Appointment Type:URO Office Visit Future Scheduled Tests Laboratory* Basic Metabolic Panel 02/28/24 Radiology* XR Chest 2 Views 05/15/23 * XR Chest 2 Views 05/15/23 [facility] evaluation + Plan note Future Appointments Appointment Date:03/13/2024 10:30:00 AM Scheduled Provider:Sukh Harrington DPM [facility] Appoint[facility] Type:WC Follow Up Visit (FT) Appointment Date:09/04/2024 03:15:00 PM Scheduled Provider:Taz THOMAS MD Location:[facility] Appointment Type:URO Office Visit Future Scheduled Tests Laboratory* Basic Metabolic Panel 02/28/24 Radiology* XR Chest 2 Views 05/15/23 * XR Chest 2 Views 05/15/23 [facility] Future Appointments Appointment Date:03/13/2024 10:30:00 AM Scheduled Provider:Sukh Harrington DPM [facility] Appoint[facility] Type:WC Follow Up Visit (FT) Appointment Date:09/04/2024 03:15:00 PM Scheduled Provider:Taz THOMAS MD Location:[facility] Appointment Type:URO Office Visit Future Scheduled Tests Radiology* XR Chest 2 Views 05/15/23 * XR Chest 2 Views 05/15/23 [facility] Future Appointments Appointment Date:09/04/2024 03:15:00 PM Scheduled Provider:Taz THOMAS MD Location:[facility] Appointment Type:URO Office Visit [facility] note* Diagnosis Onset Date Resolution Status Edema acute Hypertension acute Hypoxemia acute Volume overload acute [facility] Work Phone: evaluation note* Diagnosis Onset Date Resolution Status Acute on chronic respiratory failure with hypoxia and hypercapnia acute Edema acute Hypertension acute Hypertensive urgency acute Hypoxemia acute Obesity hypoventilation syndrome acute Obstructive sleep apnea acut e Respiratory failure acute Right heart failure acute Volume overload acute [facility] Work Phone: evaluezwhw note* Diagnosis Onset Date Resolution Status Acute respiratory distress a cute CHF (congestive heart failure) acute COPD (chronic obstructive pulmonary disease) acute Lymphedema acute [facility] Work Phone: evaluation note* Diagnosis Onset Date Resolution Status Acute on chronic respiratory failure with hypoxia and hypercapnia acute Acute respiratory distress a cute AMY (acute kidney injury) ac tulalip CHF (congestive heart failure) acute CKD (chronic kidney disease) stage 3, GFR 30-59 ml/min acute COPD (chronic obstructive pulmonary disease) acute Diabetes mellitus, type 2 ac tulalip Hyperkalemia acute Hypertension acute Lymphedema acute Obesity hypoventilation syndrome acute Urine retention acute [facility] Work Phone: Evaluation note* Diagnosis Onset Date Resolution Status CHF (congestive heart failure) acute CKD (chronic kidney disease) stage 3, GFR 30-59 ml/min acute COPD (chronic obstructive pulmonary disease) acute Diabetes mellitus, type 2 ac tulalip Hypertension acute Lymphedema acute Obesity hypoventilation syndrome acute Urine retention acute Acute on chronic respiratory failure with hypoxia and hypercapnia resolved Acute respiratory distress r esolved AMY (acute kidney injury) re solved Hyperkalemia resolved (HFpEF) heart failure with preserved ejection fraction acute Acute kidney injury superimposed on CKD acute CHF (congestive heart failure) acute Chronic respiratory failure with hypercapnia acute CKD (chronic kidney disease) stage 3, GFR 30-59 ml/min acute COPD (chronic obstructive pulmonary disease) acute Diabetes mellitus, type 2 ac tulalip Diastolic heart failure acut e Edema acute Hypernatremia acute Hypertension acute [id number] acute Lymphedema acute Metabolic alkalosis with respiratory acidosis acute Obesity hypoventilation syndrome acute Type 2 diabetes mellitus wit h diabetic chronic kidney disease acute Urine retention acute Hyperkalemia resolved [facility] Work Phone: Evaluation note* Diagnosis 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, unspecified proliferative retinopathy type ([facility]/HCC)- Primary documented in this encounter [facility] HealthcareEvaluation note* Diagnosis Encounter for Medicare annual wellness exam- Primary Type 2 diabetes mellitus with hyperglycemia, without long-term current use of insulin ([facility]) RLS (restless legs syndrome) Restless legs syndrome (RLS) Chronic hypoxemic respiratory failure (CMS/HCC) Chronic respiratory failure Stage 3b chronic kidney disease (HCC) (CMS/HCC) 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 Morbid obesity (CMS/HCC) Morbid obesity BMI 40.0-44.9, adult ([facility]/HCC) Other diabetic neurological complication associated with type 2 diabetes mellitus (CMS/HCC) TC (obstructive sleep apnea) Obstructive sleep apnea (adult) (pediatric) Restless leg syndrome Restless legs syndrome (RLS) Acute on chronic respiratory failure with hypoxia and hypercapnia ([facility]/HCC) Obesity hypoventilation syndrome ([facility]) Obesity hypoventilation syndrome Hypertension, unspecified type ([facility]) Varicose veins of both lower extremities, unspecified whether complicated Gastroesophageal reflux disease, unspecified whether esophagitis present 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 ([facility] Mixed hyperlipidemia ([facility]) Mixed hyperlipidemia Long-term insulin use ([facility]) Type 2 diabetes mellitus with hyperglycemia, with long-term current use of insulin ([facility] [facility] Primary Chronic cough Cough Chest wall pain Painful respiration Non-recurrent acute serous otitis media of right ear documented in this encounter [facility] HealthcareEvaluation note* Diagnosis Encounter for Medicare annual wellness exam- Primary Type 2 diabetes mellitus with hyperglycemia, without long-term current use of insulin ([facility]) RLS (restless legs syndrome) Restless legs syndrome (RLS) Chronic hypoxemic respiratory failure ([facility]) Chronic respiratory failure Stage 3b chronic kidney disease (HCC) ([facility] 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 Morbid obesity ([facility] Morbid obesity BMI 40.0-44.9, adult ([facility]) Other diabetic neurological complication associated with type 2 diabetes mellitus ([facility]) TC (obstructive sleep apnea) Obstructive sleep apnea (adult) (pediatric) Restless leg syndrome Restless legs syndrome (RLS) Acute on chronic respiratory failure with hypoxia and hypercapnia ([facility]) Obesity hypoventilation syndrome ([facility]) Obesity hypoventilation syndrome Hypertension, unspecified type ([facility]) Varicose veins of both lower extremities, unspecified whether complicated Gastroesophageal reflux disease, unspecified whether esophagitis present 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 ([facility] Mixed hyperlipidemia ([facility]) Mixed hyperlipidemia Long-term insulin use ([facility]) Acute pain of right shoulder- Primary Chronic hypoxemic respiratory failure ([facility]) Chronic respiratory failure Hypertension, unspecified type ([facility]) BMI 40.0-44.9, adult ([facility]) Morbid obesity ([facility]) Morbid obesity Type 2 diabetes mellitus with hyperglycemia, with long-term current use of insulin ([facility]) documented in this encounter [facility] HealthcareEvaluation note* Diagnosis Encounter for Medicare annual wellness exam- Primary Type 2 diabetes mellitus with hyperglycemia, without long-term current use of insulin ([facility]) RLS (restless legs syndrome) Restless legs syndrome (RLS) Chronic hypoxemic respiratory failure ([facility]) Chronic respiratory failure Stage 3b chronic kidney disease (HCC) ([facility] 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 Morbid obesity ([facility]) Morbid obesity BMI 40.0-44.9, adult ([facility]) Other diabetic neurological complication associated with type 2 diabetes mellitus ([facility]) TC (obstructive sleep apnea) Obstructive sleep apnea (adult) (pediatric) Restless leg syndrome Restless legs syndrome (RLS) Acute on chronic respiratory failure with hypoxia and hypercapnia ([facility]) Obesity hypoventilation syndrome ([facility]) Obesity hypoventilation syndrome Hypertension, unspecified type ([facility]) Varicose veins of both lower extremities, unspecified whether complicated Gastroesophageal reflux disease, unspecified whether esophagitis present 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 ([facility] Mixed hyperlipidemia ([facility]) Mixed hyperlipidemia Long-term insulin use ([facility]) Difficulty walking- Primary Difficulty in walking Acute on chronic respiratory failure with hypoxia and hypercapnia ([facility]) Hypertension, unspecified type ([facility]) Type 2 diabetes mellitus with hyperglycemia, with long-term current use of insulin ([facility]) Morbid obesity ([facility]) Morbid obesity BMI 40.0-44.9, adult ([facility]) Type 2 diabetes mellitus with hyperglycemia, with long-term current use of insulin ([facility]) documented in this encounter [facility] HealthcareEvaluation note* Diagnosis Encounter for Medicare annual wellness exam- Primary Type 2 diabetes mellitus with hyperglycemia, without long-term current use of insulin ([facility]) RLS (restless legs syndrome) Restless legs syndrome (RLS) Chronic hypoxemic respiratory failure ([facility]) Chronic respiratory failure Stage 3b chronic kidney disease (HCC) ([facility] 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 Morbid obesity ([facility]) Morbid obesity BMI 40.0-44.9, adult ([facility]) Other diabetic neurological complication associated with type 2 diabetes mellitus ([facility]) TC (obstructive sleep apnea) Obstructive sleep apnea (adult) (pediatric) Restless leg syndrome Restless legs syndrome (RLS) Acute on chronic respiratory failure with hypoxia and hypercapnia ([facility]) Obesity hypoventilation syndrome ([facility]) Obesity hypoventilation syndrome Hypertension, unspecified type ([facility]) Varicose veins of both lower extremities, unspecified whether complicated Gastroesophageal reflux disease, unspecified whether esophagitis present 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 ([facility]) Mixed hyperlipidemia ([facility]) Mixed hyperlipidemia Long-term insulin use ([facility]) Type 2 diabetes mellitus with hyperglycemia, with long-term current use of insulin ([facility])- Primary Insulin long-term use ([facility]) Encounter for long-term (current) use of insulin Vitamin D deficiency Encounter for dietary consultation Hyperlipemia, mixed ([facility]) Mixed hyperlipidemia Primary hypertension ([facility]) Unspecified essential hypertension Class 2 severe obesity due to excess calories with serious comorbidity and body mass index (BMI) of 38.0 to 38.9 in adult ([facility]) documented in this encounter [facility] HealthcareEvaluation note* Diagnosis Encounter for Medicare annual wellness exam- Primary Type 2 diabetes mellitus with hyperglycemia, without long-term current use of insulin ([facility]) RLS (restless legs syndrome) Restless legs syndrome (RLS) Chronic hypoxemic respiratory failure ([facility]) Chronic respiratory failure Stage 3b chronic kidney disease (HCC) ([facility] 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 Morbid obesity ([facility]) Morbid obesity BMI 40.0-44.9, adult ([facility]) Other diabetic neurological complication associated with type 2 diabetes mellitus ([facility]) TC (obstructive sleep apnea) Obstructive sleep apnea (adult) (pediatric) Restless leg syndrome Restless legs syndrome (RLS) Acute on chronic respiratory failure with hypoxia and hypercapnia ([facility]) Obesity hypoventilation syndrome ([facility]) Obesity hypoventilation syndrome Hypertension, unspecified type ([facility]) Varicose veins of both lower extremities, unspecified whether complicated Gastroesophageal reflux disease, unspecified whether esophagitis present 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 ([facility]) Mixed hyperlipidemia ([facility]) Mixed hyperlipidemia Long-term insulin use ([facility]) 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, unspecified proliferative retinopathy type ([facility])- Primary documented in this encounter [facility] HealthcareEvaluation note* Diagnosis 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, unspecified proliferative retinopathy type ([facility])- Primary 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 1 diabetes mellitus ([facility]) documented in this encounter [facility] HealthcareEvaluation note* Diagnosis 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, unspecified proliferative retinopathy type ([facility])- Primary documented in this encounter [facility] HealthcareEvaluation note* Diagnosis Encounter for Medicare annual wellness exam- Primary Type 2 diabetes mellitus with hyperglycemia, without long-term current use of insulin ([facility]) RLS (restless legs syndrome) Restless legs syndrome (RLS) Chronic hypoxemic respiratory failure ([facility]) Chronic respiratory failure Stage 3b chronic kidney disease (HCC) ([facility] 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 Morbid obesity ([facility]) Morbid obesity BMI 40.0-44.9, adult ([facility]) Other diabetic neurological complication associated with type 2 diabetes mellitus ([facility]) TC (obstructive sleep apnea) Obstructive sleep apnea (adult) (pediatric) Restless leg syndrome Restless legs syndrome (RLS) Acute on chronic respiratory failure with hypoxia and hypercapnia ([facility]) Obesity hypoventilation syndrome ([facility]) Obesity hypoventilation syndrome Hypertension, unspecified type ([facility]) Varicose veins of both lower extremities, unspecified whether complicated Gastroesophageal reflux disease, unspecified whether esophagitis present 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 ([facility] Mixed hyperlipidemia ([facility] Mixed hyperlipidemia Long-term insulin use ([facility]) documented in this encounter [facility] HealthcareEvaluation note* Diagnosis Encounter for Medicare annual wellness exam- Primary Type 2 diabetes mellitus with hyperglycemia, without long-term current use of insulin ([facility]) RLS (restless legs syndrome) Restless legs syndrome (RLS) Chronic hypoxemic respiratory failure ([facility]) Chronic respiratory failure Stage 3b chronic kidney disease (HCC) ([facility] 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 Morbid obesity ([facility]) Morbid obesity BMI 40.0-44.9, adult ([facility]) Other diabetic neurological complication associated with type 2 diabetes mellitus ([facility]) TC (obstructive sleep apnea) Obstructive sleep apnea (adult) (pediatric) Restless leg syndrome Restless legs syndrome (RLS) Acute on chronic respiratory failure with hypoxia and hypercapnia ([facility]) Obesity hypoventilation syndrome ([facility]) Obesity hypoventilation syndrome Hypertension, unspecified type ([facility]) Varicose veins of both lower extremities, unspecified whether complicated Gastroesophageal reflux disease, unspecified whether esophagitis present 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 ([facility]/H[facility]) Mixed hyperlipidemia ([facility]) Mixed hyperlipidemia Long-term insulin use ([facility]) Type 2 diabetes mellitus with hyperglycemia, with long-term current use of insulin ([facility])- Primary Insulin long-term use ([facility]) Encounter for long-term (current) use of insulin Vitamin D deficiency Encounter for dietary consultation Hyperlipemia, mixed ([facility]) Mixed hyperlipidemia Primary hypertension ([facility]) Unspecified essential hypertension documented in this encounter [facility] HealthcareEvaluation note* Diagnosis Encounter for Medicare annual wellness exam- Primary Type 2 diabetes mellitus with hyperglycemia, without long-term current use of insulin ([facility]) RLS (restless legs syndrome) Restless legs syndrome (RLS) Chronic hypoxemic respiratory failure ([facility]) Chronic respiratory failure Stage 3b chronic kidney disease (HCC) ([facility] 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 Morbid obesity ([facility]) Morbid obesity BMI 40.0-44.9, adult ([facility]) Other diabetic neurological complication associated with type 2 diabetes mellitus TC (obstructive sleep apnea) Obstructive sleep apnea (adult) (pediatric) Restless leg syndrome Restless legs syndrome (RLS) Acute on chronic respiratory failure with hypoxia and hypercapnia ([facility]) Obesity hypoventilation syndrome ([facility]) Obesity hypoventilation syndrome Hypertension, unspecified type ([facility]) Varicose veins of both lower extremities, unspecified whether complicated Gastroesophageal reflux disease, unspecified whether esophagitis present 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 Mixed hyperlipidemia ([facility]) Mixed hyperlipidemia Long-term insulin use ([facility]) Chronic hypoxemic respiratory failure ([facility])- Primary Chronic respiratory failure Acute cough Chest congestion Other symptoms involving respiratory system and chest Type 2 diabetes mellitus with hyperglycemia, with long-term current use of insulin ([facility]) Long-term insulin use ([facility]) Difficulty walking Difficulty in walking Leg weakness, bilateral Muscle weakness (generalized) BMI 35.0-35.9,adult Morbid obesity ([facility]) Morbid obesity Type 2 diabetes mellitus with diabetic chronic kidney disease ([facility]) Chronic kidney disease, stage 3b (HCC) ([facility]) Essential (primary) hypertension ([facility]) Unspecified essential hypertension Acquired absence of left foot ([facility]) Need for immunization against influenza Need for prophylactic vaccination and inoculation against influenza Need for pneumococcal vaccination Need for prophylactic vaccination against streptococcus pneumoniae (pneumococcus) documented in this encounter [facility] HealthcareEvaluation note* Diagnosis Encounter for Medicare annual wellness exam- Primary Type 2 diabetes mellitus with hyperglycemia, without long-term current use of insulin ([facility]) RLS (restless legs syndrome) Restless legs syndrome (RLS) Chronic hypoxemic respiratory failure ([facility]) Chronic respiratory failure Stage 3b chronic kidney disease (HCC) ([facility] 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 Morbid obesity ([facility] Morbid obesity BMI 40.0-44.9, adult ([facility]) Other diabetic neurological complication associated with type 2 diabetes mellitus TC (obstructive sleep apnea) Obstructive sleep apnea (adult) (pediatric) Restless leg syndrome Restless legs syndrome (RLS) Acute on chronic respiratory failure with hypoxia and hypercapnia ([facility]) Obesity hypoventilation syndrome ([facility]) Obesity hypoventilation syndrome Hypertension, unspecified type ([facility]) Varicose veins of both lower extremities, unspecified whether complicated Gastroesophageal reflux disease, unspecified whether esophagitis present 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 Mixed hyperlipidemia ([facility]) Mixed hyperlipidemia Long-term insulin use ([facility]) Primary osteoarthritis of both knees- Primary Type 2 diabetes mellitus with hyperglycemia, with long-term current use of insulin ([facility]) documented in this encounter [facility] HealthcareEvaluation note* Diagnosis Encounter for Medicare annual wellness exam- Primary Type 2 diabetes mellitus with hyperglycemia, without long-term current use of insulin ([facility]) RLS (restless legs syndrome) Restless legs syndrome (RLS) Chronic hypoxemic respiratory failure ([facility]) Chronic respiratory failure Stage 3b chronic kidney disease (HCC) ([facility] 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 Morbid obesity ([facility]) Morbid obesity BMI 40.0-44.9, adult ([facility]) Other diabetic neurological complication associated with type 2 diabetes mellitus TC (obstructive sleep apnea) Obstructive sleep apnea (adult) (pediatric) Restless leg syndrome Restless legs syndrome (RLS) Acute on chronic respiratory failure with hypoxia and hypercapnia ([facility]) Obesity hypoventilation syndrome ([facility]) Obesity hypoventilation syndrome Hypertension, unspecified type ([facility]) Varicose veins of both lower extremities, unspecified whether complicated Gastroesophageal reflux disease, unspecified whether esophagitis present 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 Mixed hyperlipidemia ([facility]) Mixed hyperlipidemia Long-term insulin use ([facility]) Type 2 diabetes mellitus with hyperglycemia, with long-term current use of insulin ([facility])- Primary Insulin long-term use ([facility]) Encounter for long-term (current) use of insulin Vitamin D deficiency Encounter for dietary consultation Hyperlipemia, mixed ([facility]) Mixed hyperlipidemia Primary hypertension ([facility]) Unspecified essential hypertension documented in this encounter [facility] HealthcareEvaluation note* Diagnosis Encounter for Medicare annual wellness exam- Primary Type 2 diabetes mellitus with hyperglycemia, without long-term current use of insulin ([facility]) RLS (restless legs syndrome) Restless legs syndrome (RLS) Chronic hypoxemic respiratory failure ([facility]) Chronic respiratory failure Stage 3b chronic kidney disease (HCC) ([facility]) 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 Morbid obesity ([facility]) Morbid obesity BMI 40.0-44.9, adult ([facility]) Other diabetic neurological complication associated with type 2 diabetes mellitus TC (obstructive sleep apnea) Obstructive sleep apnea (adult) (pediatric) Restless leg syndrome Restless legs syndrome (RLS) Acute on chronic respiratory failure with hypoxia and hypercapnia ([facility]) Obesity hypoventilation syndrome ([facility]) Obesity hypoventilation syndrome Hypertension, unspecified type ([facility]) Varicose veins of both lower extremities, unspecified whether complicated Gastroesophageal reflux disease, unspecified whether esophagitis present 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 Mixed hyperlipidemia ([facility]) Mixed hyperlipidemia Long-term insulin use ([facility]) Muscle cramps- Primary Varicose veins of both lower extremities, unspecified whether complicated Type 2 diabetes mellitus with hyperglycemia, with long-term current use of insulin ([facility]) Essential (primary) hypertension ([facility]) Unspecified essential hypertension documented in this encounter [facility] HealthcareEvaluation note* Diagnosis Encounter for Medicare annual wellness exam- Primary Type 2 diabetes mellitus with hyperglycemia, without long-term current use of insulin ([facility]) RLS (restless legs syndrome) Restless legs syndrome (RLS) Chronic hypoxemic respiratory failure ([facility]) Chronic respiratory failure Stage 3b chronic kidney disease (HCC) ([facility]) 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 Morbid obesity ([facility]) Morbid obesity BMI 40.0-44.9, adult ([facility]) Other diabetic neurological complication associated with type 2 diabetes mellitus TC (obstructive sleep apnea) Obstructive sleep apnea (adult) (pediatric) Restless leg syndrome Restless legs syndrome (RLS) Acute on chronic respiratory failure with hypoxia and hypercapnia (CMS/HCC) Obesity hypoventilation syndrome ([facility]/HCC) Obesity hypoventilation syndrome Hypertension, unspecified type ([facility]/HCC) Varicose veins of both lower extremities, unspecified whether complicated Gastroesophageal reflux disease, unspecified whether esophagitis present 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 Mixed hyperlipidemia ([facility]/HCC) Mixed hyperlipidemia Long-term insulin use ([facility]) Anxiousness- Primary Anxiety state, unspecified documented in this encounter [facility]* Diagnosis Encounter for Medicare annual wellness exam- Primary Type 2 diabetes mellitus with hyperglycemia, without long-term current use of insulin ([facility]) RLS (restless legs syndrome) Restless legs syndrome (RLS) Chronic hypoxemic respiratory failure (HCC) Chronic respiratory failure Stage 3b chronic kidney disease ([facility]) 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 Morbid obesity ([facility]) Morbid obesity BMI 40.0-44.9, adult ([facility]) Other diabetic neurological complication associated with type 2 diabetes mellitus ([facility]) TC (obstructive sleep apnea) Obstructive sleep apnea (adult) (pediatric) Restless leg syndrome Restless legs syndrome (RLS) Acute on chronic respiratory failure with hypoxia and hypercapnia (HCC) Obesity hypoventilation syndrome ([facility]) Obesity hypoventilation syndrome Hypertension, unspecified type Varicose veins of both lower extremities, unspecified whether complicated Gastroesophageal reflux disease, unspecified whether esophagitis present 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 (HCC) Mixed hyperlipidemia Mixed hyperlipidemia Long-term insulin use (HCC) Chronic hypoxemic respiratory failure (HCC)- Primary Chronic respiratory failure Leg weakness, bilateral Muscle weakness (generalized) Essential (primary) hypertension Unspecified essential hypertension Difficulty walking Difficulty in walking Type 2 diabetes mellitus with hyperglycemia, with long-term current use of insulin (HCC) Long-term insulin use (HCC) Morbid obesity ([facility]) Morbid obesity BMI 36.0-36.9,adult documented in this encounter [facility]* Diagnosis Encounter for Medicare annual wellness exam- Primary Type 2 diabetes mellitus with hyperglycemia, without long-term current use of insulin ([facility]) RLS (restless legs syndrome) Restless legs syndrome (RLS) Chronic hypoxemic respiratory failure (HCC) Chronic respiratory failure Stage 3b chronic kidney disease ([facility]) 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 Morbid obesity (CMS-HCC) Morbid obesity BMI 40.0-44.9, adult ([facility]) Other diabetic neurological complication associated with type 2 diabetes mellitus (HCC) TC (obstructive sleep apnea) Obstructive sleep apnea (adult) (pediatric) Restless leg syndrome Restless legs syndrome (RLS) Acute on chronic respiratory failure with hypoxia and hypercapnia (HCC) Obesity hypoventilation syndrome ([facility]) Obesity hypoventilation syndrome Hypertension, unspecified type Varicose veins of both lower extremities, unspecified whether complicated Gastroesophageal reflux disease, unspecified whether esophagitis present 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 (HCC) Mixed hyperlipidemia Mixed hyperlipidemia Long-term insulin use (HCC) Hospital discharge follow-up- Primary Other follow-up examination Type 2 diabetes mellitus with hyperglycemia, with long-term current use of insulin (HCC) Hyperosmolar hyperglycemic state (HHS) (HCC) Muscle cramps Long-term insulin use (HCC) Difficulty walking Difficulty in walking Essential (primary) hypertension Unspecified essential hypertension Morbid obesity ([facility]) Morbid obesity BMI 38.0-38.9,adult documented in this encounter [facility] Present [facility] Narrative* Mounika Brooke MD - 12/26/2024 3:20 PM EDT Images from the original note were not included. Subjective Patient ID: Nicole Lora is a 64 y.o. male who presents for No chief complaint on file.. HPI Telephone visit, consent obtained. Pt here for follow up. States he has been wearing an insert in his shoe that his causing his legs to ache, worst in his knees. Feels like he is having muscle cramps that quickly subside after resting. Does have a h/o varicose veins in his legs. Was following with vascular surgery, but his provider is no longer in this area. Did have phone visit with endo. No changes were made. HTN - denies sx of high or low BP. Denies side effects of meds. Review of Systems General: Denies fever, chills CV: Denies CP, palpitations Resp: denies cough, SOB or wheezing GI: Denies abd pain/n/v/c/d Skin: Denies rash Neuro: Denies LH or dizziness Objective There were no vitals taken for this visit. There is no height or weight on file to calculate BMI. Physical Exam General: alert & oriented, NAD Assessment/Plan Diagnoses and all orders for this visit: Muscle cramps (Primary) - CBC and differential; Future - Comprehensive metabolic panel; Future - Magnesium; Future - CBC and differential - Comprehensive metabolic panel - Magnesium Discussed sx tx, side effects of meds and concerning sx to monitor for. Varicose veins of both lower extremities, unspecified whether complicated - Ambulatory referral to Vascular Surgery; Future Type 2 diabetes mellitus with hyperglycemia, with long-term current use of insulin (CMS/HCC) Stable, continue to monitor. No change in regimen. Continue to follow w/ specialists Essential (primary) hypertension (CMS/HCC) Stable, continue to monitor. No change in regimen. [facility] Narrative No data available for this section [facility] Discharge instructions No data available for this section [facility] Discharge instructions Additional Instructions Continue oxygen as per chronic orders. Dietitian recommendations: *Magic cup, 1 container, daily with meal Monitor glucose levels as before. Change dressing daily: *left foot ulcer- allow vashe moistened gauze soak on wound bed for 5 min., wipe free loose debris, apply hydrogel with collagen to wound bed, top with 4x4s and secure with kerlix Please keep previously scheduled appointment with weatherization field technician in [place]. [facility] Work Phone: Progress note No data available for this section [facility]* Rehabilitation - Outpatient (Routine) - Authorized Specialty Diagnoses / Procedures Referred By Contac t Referred To Contact Physical Therapy Diagnoses Difficulty in walking, not elsewhere classified Other symptoms and signs involving the musculoskeletal system Acquired absence of left foot (CMS/HCC) Procedures CT PHYS THERAPY EVALUATION Mounika Brooke MD [address] [place] [address] Phone: tel: fax: Mone Mcguire, PT [address] [facility] [address] [place] [address] Phone: tel: fax: Referral ID Status Reason Start Date Expiration Date V isits Requested Visits Authorized [id number] Authorized 12/11/2024 06/09/2025 99 99 [facility] Chief Complaint and Reason for Visit Chief Complaint tired/bloasted/post pneumonia Reason for Visit Edema Hypertension Hypoxemia Volume overload Chief Complaint tired/bloasted/post pneumonia. Reason for Visit Acute on chronic res piratory failure with hypoxia and hypercapnia Edema Hypertension Hypertensive urgency Hypoxemia Obesity hypoventilation syndrome Obstructive sleep apnea Respiratory failure Right heart failure Volume overload Chief Complaint retaining fluid Reason for Visit Acute respiratory di stress CHF (congestive heart failure) COPD (chronic obstructive pulmonary disease) Lymphedema Chief Complaint retaining fluid retaining fluid retaining fluid retaining fluid Reason for Visit Acute on chronic res piratory failure with hypoxia and hypercapnia Acute respiratory distress AMY (acute kidney injury) CHF (congestive heart failure) CKD (chronic kidney disease) stage 3, GFR 30-59 ml/min COPD (chronic obstructive pulmonary disease) Diabetes mellitus, type 2 Hyperkalemia Hypertension Lymphedema Obesity hypoventilation syndrome Urine retention Chief Complaint retaining fluid retaining fluid retaining fluid retaining fluid e87.5 n18.3 Reason for Visit Acute on chronic res piratory failure with hypoxia and hypercapnia Acute respiratory distress AMY (acute kidney injury) CHF (congestive heart failure) CKD (chronic kidney disease) stage 3, GFR 30-59 ml/min COPD (chronic obstructive pulmonary disease) Diabetes mellitus, type 2 Hyperkalemia Hypertension Lymphedema Obesity hypoventilation syndrome Urine retention Chief Complaint retaining fluid retaining fluid retaining fluid retaining fluid e87.5 n18.3 respitory faliure respitory faliure respitory faliure Reason for Visit CHF (congestive hear t failure) CKD (chronic kidney disease) stage 3, GFR 30-59 ml/min COPD (chronic obstructive pulmonary disease) Diabetes mellitus, type 2 Hypertension Lymphedema Obesity hypoventilation syndrome Urine retention Acute on chronic respiratory failure with hypoxia and hypercapnia Acute respiratory distress AMY (acute kidney injury) Hyperkalemia (HFpEF) heart failure with preserved ejection fraction Acute kidney injury superimposed on CKD CHF (congestive heart failure) Chronic respiratory failure with hypercapnia CKD (chronic kidney disease) stage 3, GFR 30-59 ml/min COPD (chronic obstructive pulmonary disease) Diabetes mellitus, type 2 Diastolic heart failure Edema Hypernatremia Hypertension [id number] Lymphedema Metabolic alkalosis with respiratory acidosis Obesity hypoventilation syndrome Type 2 diabetes mellitus with diabetic chronic kidney disease Urine retention Hyperkalemia Advance Directives Advance Directive Response Recorded Date/ Time Advance Directives No June 18, 2023 9:36pm Advance Directive Response Recorded Date/ Time Advance Directives No June 18, 2023 8:36pm Summary Purpose Family History No Family History Records Found Additional Source Comments Care Team (unrecognized sect ion and content) Team Status: Active Member Role Status Truong Brooke MD Primary Care Provider Active Team Status: Inactive Member Role Status Truong Brooke MD Primary Care Provider Active Start: October 06, 2023 End: October 12, 2023 Jason Mercado DO Emergency Provider Active St art: October 06, 2023 End: October 12, 2023 Tera Nevarez DO Admit Provider Active Start: October 06, 2023 End: October 12, 2023 Hood Zacarias MD Other Provider Active Start: Mi watkins 2023 End: October 12, 2023 Yesi Murphy MD Attending Provider Active S tart: October 06, 2023 End: October 12, 2023 Team Status: Active Member Role Status Truong Brooke MD Primary Care Provider Active Start: October 07, 2023 Jason Mercado DO Emergency Provider Active St art: October 07, 2023 Tera Nevarez DO Admit Provider, Other Provider Act vicky Start: October 07, 2023 Lory Quinn APRN Attending Provider Active S tart: October 07, 2023 Team Status: Active Member Role Status Truong Brooke MD Primary Care Provider Active Start: October 08, 2023 Jason Mercado DO Emergency Provider Active St art: October 08, 2023 Tera Nevarez DO Admit Provider Active Start: October 08, 2023 Hood Zacarias MD Attending Provider, Other Provider Active Start: October 08, 2023 Yesi Murphy MD Other Provider Active Start : October 08, 2023 Team Status: Active Member Role Status Truong Brooke MD Primary Care Provider Active Start: October 09, 2023 Jason Mercado , DO Emergency Provider Active St art: October 09, 2023 Tera Nevarez , DO Admit Provider Active Start: October 09, 2023 Hood Zacarias MD Other Provider Active Start: Mi watkins 2023 Yesi Murphy MD Other Provider Active Start : October 09, 2023 Gigi Cooper MD Attending Provider Active Star t: October 09, 2023 Team Status: Active Member Role Status Dates Reid Brooke , DO Primary Care Provider Active Team Status: Active Member Role Status Dates Reid Brooke , DO Primary Care Provider Active Art Kirby , DO Emergency Provider Active Alban Arrington , DO Admit Provider, Attending Provider Active Team Status: Active Member Role Status Dates Migue Stroud MD Primary Care Provider Active Team Status: Inactive Member Role Status Dates Art Kirby , DO Emergency Provider Active Alban Arrington , DO Admit Provider, Attending Provider Active Amrik De Guzman MD Other Provider Active Migue Stroud MD Primary Care Provider Active Information Support Project Manager Relationship Specialty Start Date End Date Mounika Brooke MD [address] [place] [address] PCP - General Family Medicine 07/27/23 Team Status: Active Member Role Status Dates Mounika Brooke MD Primary Care Provider Active Start: October 06, 2023 Jason Mercado , DO Emergency Provider Active St art: October 06, 2023 Tera Nevarez , DO Admit Provider, Atte nding Provider Active Start: October 06, 2023 Team Status: Inactive Member Role Status Dates Mounika Brooke MD Primary Care Provider Active Start: October 13, 2023 End: October 13, 2023 Yesi Murphy MD Attending Provider Active S tart: October 13, 2023 End: October 13, 2023 Information Support Project Manager Relationship Specialty Start Date End Date Mounika Brooke MD [address] [place] [address] PCP - General Family Medicine 10/23/23 [place] [address] [place] [address] Physician Nephrology 10/31/23 Team Status: Inactive Member Role Status Dates Mounika Brooke MD Primary Care Provider Active Start: November 11, 2023 End: November 17, 2023 Tera Nevarez DO Admit Provider Active Start: November 11, 2023 End: November 17, 2023 Hood Zacarias MD Other Provider Active Start: M arch 2023 End: November 17, 2023 SOFIE Ardon Other Provider Active Start: November 11, 2023 End: November 17, 2023 Bladimir Story MD Other Provider Active Start: [facility] 2023 End: November 17, 2023 Immanuel Pozo MD Other Provider Active Star t: November 11, 2023 End: November 17, 2023 Satnam Guevara MD Other Provider Active Start: November 11, 2023 End: November 17, 2023 Gigi Cooper MD Other Provider Active Start: arch 2023 End: November 17, 2023 Manish Fu MD Attending Provider Active Start: November 11, 2023 End: November 17, 2023 Team Status: Active Member Role Status Truong Brooke MD Primary Care Provider Active Start: November 11, 2023 Tera Nevarez DO Admit Provider, Atte nding Provider, Other Provider Active Start: November 11, 2023 Team Status: Active Member Role Status Dates Mounika Brooke MD Primary Care Provider Active Start: November 12, 2023 Tera Nevarez DO Admit Provider Active Start: November 12, 2023 Durga Loza MD Other Provider Active Start : November 12, 2023 Hood Zacarias MD Other Provider Active Start: arch 2023 SOFIE Ardon Other Provider Active Start: November 12, 2023 Bladimir Story MD Attending Provider, Other Provider Active Start: November 12, 2023 Immanuel Pozo MD Other Provider Active Star t: November 12, 2023 Satnam Guevara MD Other Provider Active Start: November 12, 2023 Gigi Cooper MD Other Provider Active Start: 2023 Information Support Project Manager Relationship Specialty Start Date End Date Mounika Brooke MD [address] [place] [address] PCP - General Family Medicine 10/23/23 [place] [address] [place], [place] [id number] Physician Nephrology 10/31/23 Information Support Project Manager Relationship Specialty Start Date End Date Mounika Brooke MD [address] [place] [address] PCP - General Family Medicine 10/23/23 [place] [address] [facility] [address] [place], [place] [id number] Physician Nephrology 10/31/23 Information Support Project Manager Relationship Specialty Start Date End Date Mounika Brooke MD [address] [place] [address] PCP - General Family Medicine 07/27/23 Information Support Project Manager Relationship Specialty Start Date End Date Mounika Brooke MD [address] [place] [address] PCP - General Family Medicine 07/27/23 Information Support Project Manager Relationship Specialty Start Date End Date Mounika Brooke MD [address] [place] [address] PCP - General Family Medicine 07/27/23 Mounika Brooke MD [address] [place] [address] PCP - [facility] 01/20/24 08/20/24 Information Support Project Manager Relationship Specialty Start Date End Date Mounika Brooke MD [address] [place] [address] PCP - General Family Medicine 07/27/23 Mounika Brooke MD [address] [place] [address] PCP - [facility] 01/20/24 08/20/24 Jennifer Short PA [address] [place] [address] Physician Relocation Manager Family Medicine 06/24/24 Information Support Project Manager Relationship Specialty Start Date End Date Mounika Brooke MD [address] [place] [address] PCP - General Family Medicine 07/27/23 Mounika Brooke MD [address] [place] [address] [facility] 01/20/24 08/20/24 Information Support Project Manager Relationship Specialty Start Date End Date Mounika Brooke MD [address] [place] [address] PCP - General Family Medicine 07/27/23 Mounika Brooke MD [address] [place] [address] PCP [facility] 01/20/24 08/20/24 Jennifer Short PA [address] [place] [address] Physician Relocation Manager Family Medicine 06/24/24 Information Support Project Manager Relationship Specialty Start Date End Date Mounika Brooke MD [address] [place] [address] PCP - General Family Medicine 07/27/23 Mounika Brooke MD [address] [place] [address] [facility] 01/20/24 08/20/24 Jennifer Short PA [address] [place] [address] Physician Relocation Manager Family Medicine 06/24/24 Information Support Project Manager Relationship Specialty Start Date End Date Mounika Brooke MD [address] [place] [address] PCP - [facility] 07/27/23 Mounika Brooke MD [address] [place] [address] [facility] 01/20/24 08/20/24 Jennifer Short PA [address] [place] [address] Physician Relocation Manager Family Medicine 06/24/24 Information Support Project Manager Relationship Specialty Start Date End Date Mounika Brooke MD [address] [place] [address] [facility] 07/27/23 Mounika Brooke MD [address] [place] [address] [facility] 01/20/24 08/20/24 Jennifer Short PA [address] [place] [address] Physician Relocation Manager Family Medicine 06/24/24 Information Support Project Manager Relationship Specialty Start Date End Date Mounika Brooke MD [address] [place] [address] PCP - General Family Medicine 07/27/23 Mounika Brooke MD [address] [place] [address] [facility] 01/20/24 08/20/24 Jennifer Short PA [address] [place] [address] Physician Relocation Manager Family Medicine 06/24/24 Information Support Project Manager Relationship Specialty Start Date End Date Mounika Brooke MD [address] [place] [address] PCP - [facility] 07/27/23 Mounika Brooke MD [address] [place] [address] [facility] 01/20/24 08/20/24 Jennifer Short PA [address] [place] [address] Physician Relocation Manager Family Medicine 06/24/24 Information Support Project Manager Relationship Specialty Start Date End Date Mounika Brooke MD [address] [place] [address] PCP - General Family Medicine 07/27/23 Information Support Project Manager Relationship Specialty Start Date End Date Mounika Brooke MD [address] [place] [address] PCP - General Acute Hospital Medicine 07/27/23 Information Support Project Manager Relationship Specialty Start Date End Date Mounika Brooke MD [address] [place] [address] PCP - General [facility] Medicine 07/27/23 Information Support Project Manager Relationship Specialty Start Date End Date Mounika Brooke MD [address] [place] [address] PCP - General Acute Hospital Medicine 07/27/23 Information Support Project Manager Relationship Specialty Start Date End Date Mounika Brooke MD [address] [place] [address] PCP - General [facility] 07/27/23 Information Support Project Manager Relationship Specialty Start Date End Date Mounika Brooke MD [address] [place] [address] PCP - General [facility] 07/27/23 Information Support Project Manager Relationship Specialty Start Date End Date Mounika Brooke MD [address] [place] [address] PCP - General Family Medicine 07/27/23 Jennifer Short PA [address] [place] [address] Physician Relocation Manager Family Medicine 06/24/24 Information Support Project Manager Relationship Specialty Start Date End Date Mounika Brooke MD [address] [place] [address] PCP - General Family Medicine 07/27/23 Jennifer Short [place] [address] [place] [address] Physician Relocation Manager Family Medicine 06/24/24 Information Support Project Manager Relationship Specialty Start Date End Date Muonika Brooke MD [address] [place] [address] PCP - General Family Medicine 07/27/23 Mounika Brooke MD [address] [place] [address] PCP - Devoted 11/19/24 Jennifer Short PA [address] [place] [address] Physician Relocation Manager Family Medicine 06/24/24 Janice Kevin LSW Battery Assembler Family Medicine 12/04/24 Information Support Project Manager Relationship Specialty Start Date End Date Mounika Brooke MD [address] [place] [address] PCP - General Family Medicine 07/27/23 Mounika Brooke MD [address] [place] [address] PCP - Devoted 11/19/24 Jennifer Short PA [address] [place] [address] Physician Relocation Manager Family Medicine 06/24/24 Janice Kevin LSW Battery Assembler Family Medicine 12/04/24 12/10/24 Information Support Project Manager Relationship Specialty Start Date End Date Mounika Brooke MD [address] [place] [address] PCP - General Family Medicine 07/27/23 Mounika Brooke MD [address] [place] [address] PCP - Devoted 11/19/24 Jennifer Short PA [address] [place] [address] Physician Relocation Manager Family Medicine 06/24/24 Information Support Project Manager Relationship Specialty Start Date End Date Mounika Brooke MD [address] [place] [address] PCP - General Family Medicine 07/27/23 Mounika Brooke MD [address] [place] [address] PCP - Devoted 11/19/24 Jennifer Short PA [address] [place] [address] Physician Relocation Manager Family Medicine 06/24/24 Information Support Project Manager Relationship Specialty Start Date End Date Mounika Brooke MD [address] [place] [address] PCP - General Family Medicine 07/27/23 Mounika Brooke MD [address] [place] [address] PCP - Devoted 11/19/24 Jennifer Short PA [address] [place] [address] Physician Relocation Manager Family Medicine 06/24/24 Information Support Project Manager Relationship Specialty Start Date End Date Mounika Brooke MD [address] [place] [address] PCP - General Family Medicine 07/27/23 Mounika Brooke MD [address] [place] [address] PCP - Devoted 11/19/24 Jennifer Short PA [address] [place] [address] Physician Relocation Manager Family Medicine 06/24/24 Information Support Project Manager Relationship Specialty Start Date End Date Mounika Brooke MD [address] [place] [address] PCP - General Family Medicine 07/27/23 Mounika Brooke MD [address] [place] [address] PCP - Devoted 11/19/24 Jennifer Short PA [address] [place] [address] Physician Relocation Manager Family Medicine 06/24/24 Information Support Project Manager Relationship Specialty Start Date End Date Mounika Brooke MD [address] [place] [address] PCP - General Family Medicine 07/27/23 Mounika Brooke MD [address] [place] [address] PCP - Devoted 11/19/24 Jennifer Short PA [address] [place] [address] Physician Relocation Manager Family Medicine 06/24/24 Information Support Project Manager Relationship Specialty Start Date End Date Mounika Brooke MD [address] [place] [address] PCP - General Family Medicine 07/27/23 Mounika Brooke MD [address] [place] [address] PCP - Devoted 11/19/24 Jennifer Short PA [address] [place] [address] Physician Relocation Manager Family Medicine 06/24/24 Information Support Project Manager Relationship Specialty Start Date End Date Mounika Brooke MD [address] [place] [address] PCP - General Family Medicine 07/27/23 Mounika Brooke MD [address] [place] [address] PCP - Devoted 11/19/24 Jennifer Short PA [address] [place] [address] Physician Relocation Manager Family Medicine 06/24/24 Information Support Project Manager Relationship Specialty Start Date End Date Mounika Brooke MD [address] [place] [address] PCP - General Family Medicine 07/27/23 Mounika Brooke MD [address] [place] [address] PCP - Devoted 11/19/24 Jennifer Short PA [address] [place] [address] Physician Relocation Manager Family Medicine 06/24/24 Information Support Project Manager Relationship Specialty Start Date End Date Mounika Brooke MD [address] [place] [address] PCP - General Family Medicine 07/27/23 Mounika Brooke MD [address] [place] [address] PCP - Devoted 11/19/24 Jennifer Short PA [address] [place] [address] Physician Relocation Manager Family Medicine 06/24/24 Goals (unrecognized section and content) Goals may be documented in a n alternate sectionGoals may be documented in an alternate section (unrecognized sect ion and content) No Status Records FoundNo Status Records FoundNo Status Records FoundNo Status Records FoundNo Status Records FoundNo Status Records FoundNo Status Records FoundNo Status Records FoundNo Status Records FoundNo Status Records FoundNo Status Records FoundNo Status Records FoundNo Status Records FoundNo Status Records FoundNo Status Records FoundNo Status Records FoundNo Status Records FoundNo Status Records FoundNo Status Records FoundNo Status Records FoundNo Status Records FoundNo Status Records FoundNo Status Records FoundNo Status Records FoundNo Status Records FoundNo Status Records FoundNo Status Records FoundNo Status Records FoundNo Status Records FoundNo Status Records FoundNo Status Records FoundNo Status Records FoundNo Status Records FoundNo Status Records FoundNo Status Records FoundNo Status Records FoundNo Status Records FoundNo Status Records FoundNo Status Records FoundNo Status Records FoundNo Status Records FoundNo Status Records FoundNo Status Records FoundNo Status Records FoundNo Status Records FoundNo Status Records FoundNo Status Records FoundNo Status Records FoundNo Status Records FoundNo Status Records FoundNo Status Records FoundNo Status Records FoundNo Status Records FoundNo Status Records FoundNo Status Records FoundNo Status Records FoundNo Status Records FoundNo Status Records FoundNo Status Records FoundNo Status Records FoundNo Status Records FoundNo Status Records FoundNo Status Records FoundNo Status Records FoundNo Status Records FoundNo Status Records FoundNo Status Records FoundNo Status Records FoundNo Status Records FoundNo Status Records FoundNo Status Records FoundNo Status Records FoundNo Status Records FoundNo Status Records Found INFORMATION SOURCE (unrecogn ized section and content) DATE CREATED AUTHOR 10/29/2023 [facility] DATE CREATED AUTHOR AUTHOR'S ORGANIZ ATION 11/30/2023 [facility] DATE CREATED AUTHOR AUTHOR'S ORGANIZ ATION 03/14/2024 [facility] DATE CREATED AUTHOR AUTHOR'S ORGANIZ ATION 06/24/2024 [facility] DATE CREATED AUTHOR AUTHOR'S ORGANIZ ATION 09/05/2024 [facility] DATE CREATED AUTHOR AUTHOR'S ORGANIZ ATION 12/03/2024 [facility] DATE CREATED AUTHOR AUTHOR'S ORGANIZ ATION 12/24/2024 [facility] DATE CREATED AUTHOR AUTHOR'S ORGANIZ ATION 12/25/2024 [facility] DATE CREATED AUTHOR AUTHOR'S ORGANIZ ATION 12/26/2024 [facility] DATE CREATED AUTHOR AUTHOR'S ORGANIZ ATION 01/01/2025 [facility] DATE CREATED AUTHOR AUTHOR'S ORGANIZ ATION 01/17/2025 [facility] DATE CREATED AUTHOR AUTHOR'S ORGANIZ ATION 03/09/2025 [facility] DATE CREATED AUTHOR AUTHOR'S ORGANIZ ATION 03/10/2025 [facility] DATE CREATED AUTHOR AUTHOR'S ORGANIZ ATION 03/14/2025 [facility] Source Comments (unrecognize d section and content) In the event this informatio n is protected by the Federal Confidentiality of Alcohol and Drug Abuse Patient Records regulations: The Federal rules restrict any use of the information to criminally investigate or prosecute any alcohol or drug abuse patient.[facility] the event this information is protected by the Federal Confidentiality of Alcohol and Drug Abuse Patient Records regulations: The Federal rules restrict any use of the information to criminally investigate or prosecute any alcohol or drug abuse patient.[facility] the event this information is protected by the Federal Confidentiality of Alcohol and Drug Abuse Patient Records regulations: The Federal rules restrict any use of the information to criminally investigate or prosecute any alcohol or drug abuse patient.[facility] Reason for Visit (unrecogniz ed section and content) Reason Comments Follow Up Phone Call Post Discharge F/U - attempt made. No answer. Reason Comments Retinal Injection Reason Comments Med Refill Fall Diabetes Reason Comments Shoulder Pain ER FU Reason Comments ER Follow-up Patient had pneumoni a Reason Comments Diabetes Follow-up 06/21/2024 A1C 14% Reason Comments Follow-up Reason Onset Date Comments Referral 08/06/2024 Reason Comments Diabetic Eye Exam Diabetic Retinopathy Reason Comments Leg Pain Medicare Annual Wellness Visit Subsequen t Diabetes A1C check Reason Onset Date Comments Care Coordination 04/29/2024 Reason Comments Diabetes A1C Reason Onset Date Comments Care Coordination 12/10/2024 Reason Onset Date Comments Med Refill 01/22/2025 Reason Onset Date Comments Care Coordination 02/05/2025 Reason Comments Hospital Follow-up Leg Pain Reason Onset Date Comments Care Coordination 03/24/2025 FOR RECORDS PERTAINING TO PATIENTS WHO ARE OR HAVE BEEN ENROLLED IN A CHEMICAL DEPENDENCY/SUBSTANCEABUSE PROGRAM, SOME INFORMATION MAY BE OMITTED. This clinical summary was aggregated from multiple sources. Caution should be exercised in using it in the provision of clinical care. This summary normalizes information from multiple sources, and as a consequence, information in this document may materially change the coding, format and clinical context of patient data. In addition, data may be omitted in some cases. CLINICAL DECISIONS SHOULD BE BASED ON THE PRIMARY CLINICAL RECORDS. [facility] [employer] [facility]. provides no warranty or guarantee of the accuracy or completeness of information in this document.
== END 2025-04-14 10:11 | disposition home or self-care (01) ==
LOC: WC 14:25
PROVIDERS: Visit Provider Physician Assistant
DX: E11.621 Type 2 diabetes mellitus with foot ulcer (principal); L97.422 Non-pressure chronic ulcer of left heel and midfoot with fat layer exposed
CPT/HCPCS: 29445

== ENCOUNTER 2025-04-23 09:41 | Outpatient (OUT) | payer MEDICARE, SELFPAY ==
--- OUTSIDE RECORDS SUMMARY | 2025-04-23 11:11 | XMS_ITS | CCD ---
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 Primary Care Provider DO Art Kirby Emergency Provider DO Alban Chavez Admit Provider DO Alban Arrington Attending Provider [phone] MD Amrik De Guzman Other Provider MD Migue Stroud Primary Care Provider [phone] REID BROOKE Primary Care Physician Mounika Brooke MD Primary Care Provider MD Mounika Willoughby Primary Care Provider [phone] DO Jason Mercado Emergency Provider DO Tera Nevarez Admit Provider DO Tera Nevarez Attending Provider MD Hood Zacarias Other Provider MD Yesi Murphy Attending Provider PIPPA DONAHUE Consulting Unavailable TAY STEWART Admitting Unavailable TAY STEWART Attending Unavailable MOUNIKA BROOKE Primary Care Unavailable Mounika Brooke MD Primary Care Provider Gurmeet LYMAN, Naun Unavailable MD Mounika Brooke Primary Care Provider [phone] DO Jason Mercado M Emergency Provider DO Tera Nevarez Admit Provider [phone] MD Hood Zacarias Other Provider MD Yesi Murphy Attending Provider SOFIE Alexander Other Provider Unavailable MD Bladimir Story Other Provider MD Immanuel Pozo Other Provider MD Satnam Guevara Other Provider MD Gigi Cooper Other Provider MD Manish Fu Attending Provider [phone] Mendy LYMAN, Mounika Lugo Primary Care Provider Mendy LYMAN, Mounika Lugo Unavailable [phone] Marivel ROWAN, Jennifer Nunez Unavailable Smooth Harrington Attending Unavailable Dolce, Smooth Elizondo Attending Unavailable Hajdari, Astrit H Attending Unavailable COOK, Taz P Referring Unavailable COOK, Taz P Admitting Unavailable COOK, Taz P Attending Unavailable COOK, Taz P Attending Unavailable COOK, Taz P Referring Unavailable COOK, Taz P Admitting Unavailable COOK, Taz P Admitting Unavailable COOK, Taz P Attending Unavailable [facility] Cardio, XXXX Consulting Unavailable Moussawi, Ahmad Admitting [...] Primary Care Provider Mounika Brooke MD Unavailable Dorita SANTIAGO, Janice Unavailable Janice Garcia Unavailable [...] [penicillins] Drug Allergy Cutaneous eruption (morphologic abnormality) [facility] (20 sources) Penicillins; Translations: [penicillins] Drug allergy 5 Cutaneous eruption (morphologic abnormality), Rash [facility] (20 sources) penicillAMINE Drug Allergy 3 Unknown [facility] Medications Current Medications Medication Drug Class(es) Dates Sig (Normalized) Sig (Original) ##### (1 source) Start: 12-28-2021 ##### 100 EA, USE TO TEST THREE TIMES DAILY Start Date: 12/28/21 Status: Ordered acetaminophen 325 mg / HYDROcodone bitartrate 5 mg oral tablet (16 sources) Opioid Agonist Start: 11-20-2023 take 1 tablet by mouth every hour [place] 325 mg-5 mg oral tablet See Instructions, 1 tab(s), Refill(s) 0, Take 1 hour prior to your procedure, [facility] #[id number], 183, cm, 11/20/23 12:53:00 EDT, Height/Length Dosing, [...] for pain - following procedure, [facility] #[id number], 183, cm, 11/20/23 12:53:00 EDT, Height/Length Dosing, 143.5, kg, 11/11/23 9:09:00 EDT, Weight Dosing Start Date: 11/20/23 Status: Ordered acetaZOLAMIDE 250 mg oral tablet (1 source) Carbonic Anhydrase Inhibitor Start: 11-17-2023 take 250 mg by mouth twice daily Acetazolamide Active 250 MG PO Twice daily November 17, 2023 12:00am [id number] 200 actuat albuterol 0.09 mg/actuat metered dose [...] wheezing, 30 EA, Refill(s) 5, [facility] #[id number], 182.9, cm, 03/29/22 13:07:00 EDT, Height/Length Dosing, [...] Wheezing, 18 gm, Refill(s) 11, [facility] #[id number], 182, cm, 05/08/23 10:15:00 EDT, Height/Length Dosing, 137, kg, 05/08/23 10:15:00 EDT, Weight Dosing Start Date: 05/08/23 Status: Ordered Quantity: 18.0 Unit: g Repeat number: 12 Start: 05-08-2023 take 2 puff(s) by in halation every six hours Albuterol (Eqv-ProAir HFA) 90 mcg/inh inhalation aerosol 2 puff(s), Inhalation, q6hr Wheezing, 18 gm, Refill(s) 11, [facility] #[id number], 182, cm, 05/08/23 10:15:00 EDT, Height/Length Dosing, 137, kg, 05/08/23 10:15:00 EDT, Weight Dosing Start Date: 05/08/23 Status: Ordered Start: 05-08-2023 End: 05-02-2024 take 2 puff(s) by inhalation every six hours Albuterol (Eqv-ProAir HFA) 90 mcg/inh inhalation aerosol 2 puff(s), Inhalation, q6hr Wheezing for 30 day(s), 18 gm, Refill(s) 11, [facility] #[id number], 182, cm, 05/08/23 10:15:00 EDT, Height/Length Dosing, [...] qAM, # 30 tab(s), Refills(s) 0, Pharmacy: [id number], 180, cm, 09/12/23 13:35:00 EST, Height/Length Dosing, 149.8, kg, 09/12/23 13:35:00 EST, Weight Dosing Start Date: 09/16/23 Status: Ordered Quantity: 30.0 Unit: tab(s) Repeat number: 1 Beet Root (20 sources) Start: 09-19-2022 Beet Root Beet Root, See Instructions, Take 1000mg daily Start Date: 09/19/22 Status: Ordered Blood Glucose Monitoring Suppl ([place] Verio Flex System) w/Device kit (1 source) Start: 12-24-2024 Blood Glucose Monitoring Suppl ([place] Verio Flex System) w/Device kit USE DIRECTED [...] day(s), # 20 cap(s), Refills(s) 0, Pharmacy: [facility] #[id number], 183, cm, 12/02/24 12:47:00 EDT, Height/Length Dosing, [...] Date: 09/19/22 Status: Ordered Continuous Blood Gluc Newspaper Vendor (FreeStyle Sage 3 [place]) device (20 sources) Start: 09-25-19 Continuous Blood Gluc Newspaper Vendor (FreeStyle Sage 3 [place]) device Indications: Type 2 diabetes mellitus with hyperglycemia, with long-term current use of insulin (HCC) , Long-term insulin use (HCC) 1 each continuously 1 each 09/25/2023 Active Start: 09-25-2023 Continuous Blo od Gluc Newspaper Vendor (FreeStyle Sage 3 [place]) device Indications: Type 2 diabetes mellitus with hyperglycemia, with long-term current use of insulin (CMS/HCC) , Long-term insulin use (CMS/HCC) 1 each continuously 1 each 09/25/2023 Active Continuous Blood Gluc Sensor (FreeStyle Sage 3 Sensor) misc (20 sources) Start: 09-25-2023 Continuous Blo od Gluc Sensor (FreeStyle Sage 3 Sensor) [facility] Indications: Type 2 diabetes mellitus with hyperglycemia, with long-term current use of insulin (HCC) , Long-term insulin use (HCC) 1 each every 14 (fourteen) days 6 each 3 09/25/2023 Active Start: 09-25-2023 Continuous Blo od Gluc Sensor (FreeStyle Sage 3 Sensor) [facility] Indications: Type 2 diabetes mellitus with hyperglycemia, with long-term current use of insulin (CMS/HCC) , Long-term insulin use (CMS/HCC) 1 each every 14 (fourteen) days 6 each 3 09/25/2023 Active diazePAM 10 mg oral tablet (16 sources) Benzodiazepine Start: 11-20-2023 Valium 10 mg Tab See Instructions, Take 1 hr prior to procedure, # 1 tab(s), Refills(s) 0, Pharmacy: [facility] #[id number], 183, cm, 11/20/23 12:53:00 EDT, Height/Length Dosing, [...] days, # 14 tab(s), Refills(s) 0, [facility][id number], 183, cm, 11/20/23 12:53:00 EDT, Height/Length Dosing, [...] Ordered Start: 12-03-2019 take 1 capsule by [facility] once daily DULoxetine 60 mg Cap-EC [...] Comment on above: Take 1 tablet by [facility] once daily. Flax Seed Oil (20 sources) Start: 09-19-2022 Flax Seed Oil See Instructions, Refill(s) 0, Take 1000mg daily Start Date: 09/19/22 Status: Ordered fluconazole 200 mg oral tablet (1 source) Azole Antifungal Start: 11-17-2023 take 200 mg by mouth once daily Fluconazole Active 200 MG PO Daily 05 30November 17, 2023 12:00am Freestyle Sage 2 [place] (20 sources) Start: 09-16-2023 Freestyle Sage 2 [place] Freestyle Sage 2 [place], See Instructions, 1 EA, 0, Use daily with sensor, [facility] #[id number], Supply, 180, cm, 09/12/23 13:35:00 EST, Height/Length Dosing, 149.8, kg, 09/12/23 13:35:00 EST, Weight Dosing Start Date: 09/16/23 Status: Ordered Quantity: 1.0 Unit: EA Repeat number: 1 Start: 09-16-2023 Freestyle Libr e 2 [place] Freestyle Sage 2 [place], See Instructions, 1 EA, 0, Use daily with sensor, [facility] #[id number], Supply, 180, cm, 09/12/23 13:35:00 EST, Height/Length Dosing, 149.8, kg, 09/12/23 13:35:00 EST, Weight Dosing Start Date: 09/16/23 Status: Ordered Start: 05-22-2023 Freestyle Libr e 2 [place] Freestyle Sage 2 [place], See Instructions, 1 EA, 0, Use daily with sensor, [facility] #[id number], Supply, 182, cm, 05/22/23 13:30:00 EDT, Height/Length Dosing, 139.6, kg, 05/22/23 13:30:00 EDT, Weight Dosing Start Date: 05/22/23 Status: Ordered Freestyle Sage 2 Sensors (20 sources) Start: 09-16-2023 Freestyle Libr e 2 Sensors Freestyle Sage 2 Sensors, See Instructions, 2 EA, 3, Apply one q 14 days, [facility] #[id number], Supply, 180, cm, 09/12/23 13:35:00 EST, Height/Length Dosing, 149.8, kg, 09/12/23 13:35:00 EST, Weight Dosing Start Date: 09/16/23 Status: Ordered Quantity: 2.0 Unit: EA Repeat number: 4 Start: 09-16-2023 Freestyle Libr e 2 Sensors Freestyle Sage 2 Sensors, See Instructions, 2 EA, 3, Apply one q 14 days, [facility] #[id number], Supply, 180, cm, 09/12/23 13:35:00 EST, Height/Length Dosing, 149.8, kg, 09/12/23 13:35:00 EST, Weight Dosing Start Date: 09/16/23 Status: Ordered Start: 05-22-2023 Freestyle Libr e 2 Sensors Freestyle Sage 2 Sensors, See Instructions, 2 EA, 3, Apply one q 14 days, [facility] #[id number], Supply, 182, cm, 05/22/23 13:30:00 EDT, Height/Length Dosing, 139.6, kg, 05/22/23 13:30:00 EDT, Weight Dosing Start Date: 05/22/23 Status: Ordered furosemide 20 mg oral tablet (20 sources) Loop Diuretic Start: 09-16-2023 take 1 tablet by mouth once daily Lasix 40 mg Tab 40 mg = 1 tab(s), Oral, Daily, # 30 tab(s), Refills(s) 0, Pharmacy: [facility] #[id number], 180, cm, 09/12/23 13:35:00 EST, Height/Length Dosing, [...] qPM, # 30 tab(s), Refills(s) 0, [id number], 180, cm, 09/12/23 13:35:00 EST, Height/Length Dosing, [...] Supply, # 60 tab(s), Refills(s) 11, Pharmacy: [facility] #[id number], 182, cm, 10/01/21 10:14:00 EST, Height/Length Dosing, [...] Start: 06-15-2023 take 2 tablets by mo [facility] twice daily guaiFENesin 600 mg ER Tab 1,200 mg = 2 tab(s), Oral, BID, # 14 tab(s), Refills(s) 0, Pharmacy: [facility] #[id number], 182, cm, 06/11/23 13:54:00 EDT, Height/Length Dosing, [...] day, # 45 mL, Refills(s) 5, Pharmacy: [facility] #[id number], 182, cm, 09/13/22 13:17:00 EST, Height/Length Dosing, 140.8, kg, 09/13/22 13:17:00 EST, Weight Dosing Start Date: 09/13/22 Status: Ordered Quantity: 45.0 Unit: mL Repeat number: 6 Start: 03-29-2022 NovoLOG FlexPe n 100 units/mL injectable solution See Instructions, 250 tidac. Max 150 units a day, # 45 mL, Refills(s) 5, Pharmacy: [facility] #[id number], 182.9, cm, 03/29/22 13:07:00 EDT, Height/Length Dosing, 126.7, kg, 03/29/22 13:07:00 EDT... Start Date: 03/29/22 Status: Ordered Start: 10-01-2021 NovoLOG FlexPe n 100 units/mL injectable solution See Instructions, 250 tidac. Max 120 units a day, # 15 mL, Refills(s) 3, Pharmacy: [facility], 182, cm, 10/01/21 10:14:00 EST, [...] BID, # 12 mL, Refills(s) 5, Pharmacy: [facility] #[id number], 182, cm, 09/13/22 13:17:00 EST, Height/Length Dosing, 140.8, kg, 09/13/22 13:17:00 EST, Weight Dosing Start Date: 09/13/22 Status: Ordered Quantity: 12.0 Unit: mL Repeat number: 6 Start: 03-29-2022 Toujeo Max Harriet oStar 300 units/mL subcutaneous solution 40 unit(s), SubCutaneous, BID, # 12 mL, Refills(s) 5, [id number], 182.9, cm, 03/29/22 13:07:00 EDT, Height/Length Dosing, 126.7, kg, 03/29/22 13:07:00 EDT, Weight Dosing Start Date: 03/29/22 Status: Ordered Start: 01-11-2022 inject 40 [IU] by shah bcutaneous injection in the morning, then inject 30 [IU] by subcutaneous injection in the evening Lantus Solostar Pen 100 units/mL subcutaneous solution See Instructions, 40 units AM, 30 units PM, # 30 mL, Refills(s) 11, [facility], 182, cm, 01/11/22 13:57:00 EDT, [...] # 30 mL, Refills(s) 11, Pharmacy: [facility], 182, cm, 01/11/22 13:57:00 EDT, Height/Length [...] bedtime., # 6 mL, Refills(s) 1, Pharmacy: [facility] #[id number], 182, cm, 12/20/24 13:40:00 EDT, Height/Length Dosing, [...] BID, 180 tab(s), Refill(s) 4, [facility] #[id number], 182.9, cm, 12/02/22 10:56:00 EDT, Height/Length Dosing, 139.6, kg, 12/02/22 10:56:00 EDT, Weight Dosing Start Date: 04/14/23 Status: Ordered Quantity: 180.0 Unit: tab(s) Repeat number: 5 Start: 04-04-2022 Jentadueto 2.5 mg-1000 mg oral tablet 1 tab(s), Oral, BID, 180 tab(s), Refill(s) 4, [facility] #[id number], 182.9, cm, 03/29/22 13:07:00 EDT, Height/Length Dosing, [...] Daily, # 30 tab(s), Refills(s) 1, Pharmacy: [facility] #[id number], 182, cm, 12/20/24 13:40:00 EDT, Height/Length Dosing, [...] 90 tab(s), Refills(s) 3, Pharmacy: [facility] #[id number], 182.9, cm, 03/29/22 13:07:00 EDT, Height/Length Dosing, [...] day(s), # 9 tab(s), Refills(s) 0, Pharmacy: [email or web address] #[id number], 183, cm, 12/19/24 10:26:00 EDT, Height/Length Dosing, [...] procedure, # 20 tab(s), Refills(s) 0, Pharmacy: [facility] #[id number], 180, cm, 01/15/24 16:27:00 EDT, Height/Length Dosing, 140, kg, 01/15/24 16:27:00 EDT, Weight Dosing Start Date: 02/07/24 Status: Ordered Start: 11-20-2023 take 1 tablet by ricco th twice daily oxybutynin 5 mg Tab See Instructions, 1 tab(s) Oral bid after procedure, # 10 tab(s), Refills(s) 0, Pharmacy: [facility] #[id number], 183, cm, 11/20/23 12:53:00 EDT, Height/Length Dosing, 143.5, kg, 11/11/23 9:09:00 EDT, Weight Dosing Start Date: 11/20/23 Status: Ordered pantoprazole 40 mg delayed release oral tablet (20 sources) Proton Pump Inhibitor Start: 04-20-2021 End: 12-04-2023 take 1 tablet by mouth once daily Protonix 40 mg Tab-DR 40 mg = 1 tab(s), Oral, Daily, # 30 tab(s), Refills(s) 6, Pharmacy: [facility] #[id number], 182, cm, 05/08/23 10:15:00 EDT, Height/Length Dosing, 137, kg, 05/08/23 10:15:00 EDT, Weight Dosing Start Date: 05/08/23 Status: Ordered Quantity: 30.0 Unit: tab(s) Repeat number: 7 Indication: Gastro-esophageal reflux disease without esophagitis Start: 04-20-2021 take 1 tablet by ricco th once daily Pantoprazole [address] Tab 40 mg = 1 tab(s), Oral, Daily, # 90 tab(s), Refills(s) 3, Pharmacy: [facility], 183, cm, 04/20/21 11:36:00 EDT, [...] 90 tab(s), Refills(s) 4, [facility]: [facility] #[id number], 182, cm, 05/22/23 13:30:00 EDT, Height/Length Dosing, 139.6, kg, 05/22/23 13:30:00 EDT, Weight Dosing Start Date: 05/22/23 Status: Ordered Quantity: 90.0 Unit: tab(s) Repeat number: 5 Start: 03-29-2022 take 1 tablet by ricco th once daily in the evening ropinirole 1 mg Tab 1 mg = 1 tab(s), Oral, qPM, # 90 tab(s), Refills(s) 4, Pharmacy: [facility] #[id number], 182.9, cm, 03/29/22 13:07:00 EDT, Height/Length Dosing, 126.7, kg, 03/29/22 13:07:00 EDT, Weight Dosing Start Date: 03/29/22 Status: Ordered Start: 04-20-2021 take 1 tablet by ricco th once daily in the evening ropinirole 1 mg Tab 1 mg = 1 tab(s), Oral, qPM, # 90 tab(s), Refills(s) 3, [facility], 183, cm, 04/20/21 11:36:00 EDT, [...] day(s), # 30 cap(s), Refills(s) 3, [facility]: [facility] #[id number], 181.8, cm, 09/26/23 9:01:00 EST, Height/Length Dosing, 136, kg, 09/26/23 9:01:00 EST, Weight Dosing Start Date: 10/02/23 Stop Date: 01/30/24 Status: Ordered Comment on above: Take 1 capsule by mo [facility] every afternoon. torsemide 20 mg oral [...] wheezing, 8.5 gm, Refill(s) 5, [facility] #[id number], 182.9, cm, 06/17/22 13:13:00 EDT, Height/Length Dosing, 131.5, kg, 06/17/22 13:13:00 EDT, Weight Dosing Start Date: 06/17/22 Status: Ordered Quantity: 8.5 Unit: g Repeat number: 6 Start: 06-17-2022 take 2 puff(s) by in halation every four hours Ventolin HFA 90 mcg/inh Aerosol 2 puff(s), Inhalation, q4hr Shortness of breath or wheezing, 8.5 gm, Refill(s) 5, [facility] #[id number], 182.9, cm, 06/17/22 13:13:00 EDT, Height/Length Dosing, [...] day(s), # 20 cap(s), Refills(s) 0, [facility]: [facility] #[id number], 180, cm, 09/24/23 20:13:00 EST, Height/Length Dosing, 141.4, kg, 09/24/23 20:13:00 EST, Weight Dosing Start Date: 09/24/23 Stop Date: 09/29/23 Status: Ordered Glucometer (20 sources) Start: 09-16-2023 Glucometer Glu cometer, See Instructions, 1 EA, 0, Dispense 1 Glucometer, [facility] #[id number], Supply, 180, cm, 09/12/23 13:35:00 EST, Height/Length Dosing, 149.8, kg, 09/12/23 13:35:00 EST, Weight Dosing Start Date: 09/16/23 Status: Ordered Quantity: 1.0 Unit: EA Repeat number: 1 Indication: Type 2 diabetes mellitus with diabetic neuropathy, unspecified Start: 09-16-2023 Glucometer Glu cometer, See Instructions, 1 EA, 0, Dispense 1 Glucometer, [facility] #[id number], Supply, 180, cm, 09/12/23 13:35:00 EST, Height/Length Dosing, 149.8, kg, 09/12/23 13:35:00 EST, Weight Dosing Start Date: 09/16/23 Status: Ordered Start: 11-03-2022 Glucometer Glu cometer, See Instructions, 1 EA, 0, Dispense 1 Glucometer, [id number], Supply, 182, cm, 09/13/22 13:17:00 EST, Height/Length Dosing, 140.8, kg, 09/13/22 13:17:00 EST, Weight Dosing Start Date: 11/03/22 Status: Ordered Start: 10-28-2021 Glucometer Glu cometer, See Instructions, 1 EA, 0, Dispense 1 Glucometer, [facility] #[id number], Supply, 182, cm, 10/01/21 10:14:00 EST, Height/Length Dosing, 131.2, kg, 10/01/21 10:14:00 EST, Weight Dosing Start Date: 10/28/21 Status: Ordered Glucose (1 source) Start: 12-21-2024 Glucose Kit Gl ucose Kit, See Instructions, 1 EA, 0, Glucose meter. Include autolet, matching test strips, lancets, & alcohol wipes, #100 or as allowed by insurance; DX: E11.9, [facility] #[id number], Supply, 182, cm, 12/20/24 13:40:00 EDT, Height/Length [...] End: 05-22-2024 0.3 mg, Intravitreal, Once P regulatory affairs spec, Starting on Mon05/22/24 at 1442, For 1 dose Start: 04-23-2024 End: 04-23-2024 0.3 mg, Intravitreal, Once P regulatory affairs spec, Starting on Mon04/23/24 at 1106, For 1 dose Symbicort 160/4.5 inhalation aerosol with adapter (20 sources) Start: 05-08-2023 take 1 dose by inhalation twice daily Symbicort 160/4.5 inhalation aerosol with adapter 2 puff(s), Inhalation, BID, 1 EA, Refill(s) 6, [facility] #[id number], 182, cm, 05/08/23 10:15:00 EDT, Height/Length Dosing, 137, kg, 05/08/23 10:15:00 EDT, Weight Dosing Start Date: 05/08/23 Status: Ordered Quantity: 1.0 Unit: EA Repeat number: 7 Indication: Unspecified asthma, uncomplicated Start: 05-08-2023 take 1 dose by inhal ation twice daily Symbicort 160/4.5 inhalation aerosol with adapter 2 puff(s), Inhalation, BID, 1 EA, Refill(s) 6, [facility] #49598, 182, cm, 05/08/23 10:15:00 EDT, Height/Length Dosing, 137, kg, 05/08/23 10:15:00 EDT, Weight Dosing Start Date: 05/08/23 Status: Ordered Start: 05-08-2023 End: 12-04-2023 take 1 dose by inhalation twice daily Symbicort 160/4.5 inhalation aerosol with adapter 2 puff(s), Inhalation, BID for 30 day(s), 1 EA, Refill(s) 6, [facility] #73559, 182, cm, 05/08/23 10:15:00 EDT, Height/Length Dosing, [...] Start: 09-12-2023 take 1 capsule by mo [facility] every eight hours as needed for pain Zanaflex 2 mg oral capsule 2 mg = 1 cap(s), Oral, q8hr, PRN Muscle pain, # 180 cap(s), Refills(s) 0 Start Date: 09/12/23 Status: Ordered Quantity: 180.0 Unit: cap(s) Repeat number: 1 Start: 07-27-2023 take 1 tablet by [facility] every eight hours for muscle spasms [...] (BMI) of 38.0 to 38.9 in adult ([facility])] 07-15-2024 Chronic Other nutritional; endocrine; [...] sources) Long-term current use of insulin; 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] Onset: 05-22-2023 Episodic [...] Results Test Name Value Interpretation Reference Range [facility] Capillary Glucose POCon 02-18 Glucose [Mass/Vol] 228 mg/dL High 55-99 [facility] Comment on above: Result Comment: Thelma maxwell RN/ Performed By: #### 2 [id number] #### [facility] [address] [place] [address] Discharge Note-Nursingon Discharge Note-Nursing Discharge Note-Nursing NICOLE [...] Keep scheduled appointment Where: [address] [place] [address]- Business (1) Medications What How Much When Why Instructions Next Dose New insulin glargine (Insulin Glargine Prefilled Pen 100 units/ mL subcutaneous solution) 30 Units Subcutaneous 2 times a day Type 2 diabetes mellitus with hyperosmolar nonketotic hyperglycemia Refills: 1 Pickup at [facility] #[id number] Tonight at 9:00 PM New insulin lispro (HumaLOG KwikPen 100 units/ mL injectable solution) See instructions Type 2 diabetes mellitus with hyperosmolar nonketotic hyperglycemia TID PRN AC MEALS 150- 200 2 units, 200-250 4 u, 251-300 6 u, 301-350 8 u, 351-400 10 u, > 401 call your PCP Pickup at [facility] #[id number] Today at lunch Changed insulin regular (HumuLIN [...] Pen Needle 31G x 6mm Pharmacy Information [facility] #[id number]: [address] [place], [place] [id number] [phone] Test Results CBC BMP WBC: 6.9 E9/L [...] mmol/L (02/18 (more content not included)... Normal [facility] Inpatient Clinical Summaryon 03-07-2025 Inpatient Clinical Summary Inpatient Clinical Summary [address] [address] Clinical Summary Person Information: Name: NICOLE LORA Age: 65 Years : 1960 Sex: Male PCP: Mounika Brooke MD Marital Status: Phone: [phone] Race: White Ethnicity: Non- or Language: Montenegrin Visit Id: Visit Reason: Hyperglycemia; Medical problem - minor; Leg pain-swelling; LEG PAIN Speciality: Acuity: Enc Type: Inpatient Med Service: Medical Arrival: 03/05/2025 19:53:39 Discharge: Dispo Type: Admit to ICCU Address: [address] [id number] Provider Notes: Diagnosis: 1:Leg muscle spasm; 4:CKD [...] Address: When: Mounika Brooke [address] [place] [address] [facility] (9) Within 3 to 5 days Comments: Call for followup appointment Patient Education Information: Hyperglycemic Hyperosmolar State Normal [facility] Inpatient Patient Summaryon 03-07-2025 Inpatient Patient Summary Inpatient Patient Summary [address] [address] Patient Discharge Instructions PERSON INFORMATION [...] Address: When: Mounika Brooke [address] [place] [address] [facility] (2) Within 3 to 5 days Comments: Call [...] OCCURRED DURING YOUR HOSPITAL STAY New Medications [email or web address][id number], [address] [facility], [place] [id number], [phone] insulin glargine (Insulin Glargine Prefilled Pen 100 [...] Hyperosmolar State (more content not included)... Normal [facility] Interdisciplinary Note - Yimi e Manageron 03-07-2025 Interdisciplinary Note - Parole Director Interdisciplinary Note - Parole Director Patient is awake and alert in bed, previously rounded with Dr. Macario. Patient is from home independently, states with daughter 4 days per week who is disabled and has cancer. States trying to get motorized scooter approved by insurance and CRM contacted PCP office yesterday regarding this. Declines any HH or PM or further needs. [facility] rights reviewed and second copy provided. . PCP verified and insurance information reviewed and DME discussed. Contact information provided and white board updated. Normal [facility] Comment on above: Result Comment: Elec tronically Signed By: Darlyn HALL, Lolis\.samir\Date and Time Signed: 03/07/25 09:09 EDT Patient Education - Texton 0 03-07-2025 Patient Education - Text Patient Education - Text [facility] BMPon 03-06-2025 Anion gap [Moles/Vol] 12 mmol/L Normal -16 [facility] Comment on above: Performed By: #### 2 [id number] #### [facility] [address] [place] [address] BUN/Creat Ratio 22 No Units High 10-20 [facility] Comment on above: Performed By: #### 2 [id number] #### [facility] [address] [place] [address] Calcium [Mass/Vol] 8.4 mg/dL Low 8.9-11.1 [facility] Comment on above: Performed By: #### 2 [id number] #### [facility] [address] [place] [address] Chloride [Moles/Vol] 100 mmol/L Low 101-111 [facility] Comment on above: Result Comment: Delt a check verified Performed By: #### 2 [id number] #### [facility] [address] [place] [address] CO2 [Moles/Vol] 26 mmol/L Normal 21-31 [facility] Comment on above: Performed By: #### 2 [id number] #### [facility] [address] [place] [address] Creatinine [Mass/Vol] 1.6 mg/dL High 0.5-1.3 [facility] Comment on above: Result Comment: Delt a check verified Performed By: #### 2 [id number] #### [facility] [address] [place] [address] Glucose [Mass/Vol] 224 mg/dL High 55-199 [facility] Comment on above: Performed By: #### 2 [id number] #### [facility] [address] [place] [address] Potassium [Moles/Vol] 3.8 mmol/L Normal 3.5-5.3 [facility] Comment on above: Result Comment: Delt a check verified Performed By: #### 2 [id number] #### [facility] [address] [place] [address] Sodium [Moles/Vol] 134 mmol/L Low 135-145 [facility] Comment on above: Performed By: #### 2 [id number] #### [facility] [address] [place] [address] Urea nitrogen [Mass/Vol] 35 mg/dL High 5-21 [facility] Comment on above: Performed By: #### 2 [id number] #### [facility] [address] [place] [address] Capillary Glucose POCon 02-18 Glucose [Mass/Vol] 172 mg/dL High 55-99 [facility] Comment on above: Result Comment: Thelma maxwell RN/ Performed By: #### 2 [id number] #### [facility] [address] [place] [address] Glucose [Mass/Vol] 121 mg/dL High 55-99 [facility] Comment on above: Result Comment: Thelma maxwell RN/ Performed By: #### 2 [id number] #### [facility] [address] [place] [address] Glucose [Mass/Vol] 186 mg/dL [address] Comment on above: Performed By: #### 2 [id number] #### [facility] [address] [place] [address] Glucose [Mass/Vol] 225 mg/dL [address] Comment on above: Performed By: #### 2 [id number] #### [facility] [address] [place] [address] Glucose [Mass/Vol] 128 mg/dL [address] Comment on above: Performed By: #### 2 [id number] #### [facility] [address] [place] [address] Glucose [Mass/Vol] 168 mg/dL [address] Comment on above: Result Comment: Pricila elbert Meter Performed By: #### 2 [id number] #### [facility] [address] [place] [address] Glucose [Mass/Vol] 163 mg/dL [address] Comment on above: Result Comment: Pricila elbert Meter Performed By: #### 2 [id number] #### [facility] [address] [place] [address] Glucose [Mass/Vol] 229 mg/dL [address] Comment on above: Result Comment: Pricila elbert Meter Performed By: #### 2 [id number] #### [facility] [address] [place] [address] Glucose [Mass/Vol] 214 mg/dL [address] Comment on above: Result Comment: Pricila elbert Meter Performed By: #### 2 [id number] #### [facility] [address] [place] [address] Glucose [Mass/Vol] 241 mg/dL High 55-99 [facility] Comment on above: Result Comment: Pricila elbert Meter Performed By: #### 2 [id number] #### [facility] [address] [place] [address] Glucose [Mass/Vol] 322 mg/dL High 55-99 [facility] Comment on above: Result Comment: Pricila elbert Meter Performed By: #### 2 [id number] #### [facility] [address] [place] [address] Glucose [Mass/Vol] 384 mg/dL High 55-99 [facility] Comment on above: Result Comment: Pricila elbert Meter Performed By: #### 2 [id number] #### [facility] [address] [place] [address] Glucose [Mass/Vol] 440 mg/dL High 55-99 [facility] Comment on above: Result Comment: Pricila elbert Meter Performed By: #### 2 [id number] #### [facility] [address] [place] [address] ED Note-Physicianon 03-06-20 ED Note-Physician ED Note-Physician [...] and Complexity of Problems Differential Diagnosis: [] [facility] Data External documents reviewed: [] My EKG [...] EDT, ST (more content not included)... Normal [facility] Comment on above: Result Comment: Elec tronically Signed By: Shira Snider, Alejandro H\.br\Date and Time Signed: 03/06/25 00:11 EDT Extra [place] 03-06-2025 WB Tube Collected Yes Invalid Interpretation Code [facility] Comment on above: Performed By: #### 1 [id number] #### [facility] [address] [place] [address] Glucoseon 03-06-2025 Glucose [Mass/Vol] 551 mg/dL Abnormal 55-199 [facility] Comment on above: Result Comment: Crit ical Result Verified by Previous Result Critical Result [id number] Called to and read back by: DIGNA MARX at: 03/06/2025 00:04:06 by:[email or web address] Performed By: #### 2 [id number] #### [facility] [address] [place] [address] Inpatient Clinical Summaryon 03-06-2025 Inpatient Clinical Summary Inpatient Clinical Summary [address] [address] Clinical Summary Person Information: Name: NICOLE LORA Age: 65 Years : 1960 Sex: Male PCP: Mounika Brooke MD Marital Status: Phone: [phone] Race: White Ethnicity: Non- or Language: Montenegrin Visit Id: Visit Reason: Hyperglycemia; Medical problem - minor; Leg pain-swelling; LEG PAIN Speciality: Acuity: Enc Type: Inpatient Med Service: Medical Arrival: 03/05/2025 19:53:39 Discharge: Dispo Type: Admit to [facility] Address: [address] [place] [id number] Provider Notes: Diagnosis: 1:Leg muscle spasm; 4:CKD [...] Physician: Follow up: Patient Education Information: Normal [facility] Inpatient Patient Summaryon 03-06-2025 Inpatient Patient Summary Inpatient Patient Summary [address] [address] Patient Discharge Instructions PERSON INFORMATION [...] to serve you. Thank you for choosing [facility] Normal [facility] Interdisciplinary Note - Yimi e Manageron 03-06-2025 Interdisciplinary Note - Parole Director Interdisciplinary Note - Parole Director CRM to room ICU 7 Patient is [...] Dr Macario patient may move to the [facility]. Patient was provided CRM contact, white [...] regard to his electric scooter order Normal [facility] Comment on above: Result Comment: Elec tronically Signed By: Jodee Giang\.br\Date and Time Signed: 03/06/25 16:16 EDT Interdisciplinary Note - Parole Director Interdisciplinary Note - Parole Director CRM to room ICU 7 Patient is [...] Dr Macario patient may move to the [facility]. Patient was provided CRM contact, white board updated. CRM following DC date TBD, DC plan home, declined needs Normal [facility] Comment on above: Result Comment: Elec tronically Signed By: Jodee Giang\.br\Date and Time Signed: 03/06/25 10:21 EDT Patient Education - Texton 0 03-06-2025 Patient Education - Text Patient Education - Text Normal [facility] XR Chest Single Viewon 03-06 XR [...] MD Transcribed by: KAT Technologist: CML Normal [facility] eGFRon 03-06-2025 eGFR 47 mL/min/1.73 m2 Low >=59 [facility] Comment on above: Performed By: #### 1 [id number] #### [facility] [address] [place] [address] BMPon 03-05-2025 Glucose [Mass/Vol] 1084 mg/dL Abnormal 55-199 [facility] Comment on above: Result Comment: Crit ical Result Verified by Repeat Analysis Critical Result [id number] Called to and read back by: KELY GE at: 03/05/2025 21:05:22 by:KELLEE Performed By: #### 2 [id number] #### [facility] [address] [place] [address] Sodium [Moles/Vol] 119 mmol/L Abnormal 135-145 [facility] Comment on above: Result Comment: Crit ical Result Verified by Repeat Analysis Critical Result S_NA of [id number] Called to and read back by: KELY GE at: 03/05/2025 21:05:22 by:KELLEE Performed By: #### 2 [id number] #### [facility] [address] [place] [address] Anion gap [Moles/Vol] 13 mmol/L Normal 6-16 [facility] Comment on above: Performed By: #### 2 [id number] #### [facility] [address] [address] BUN/Creat Ratio 21 No Units High 10-20 [facility] Comment on above: Performed By: #### 2 [id number] #### [facility] [address] [place] [address] Calcium [Mass/Vol] 8.4 mg/dL Low 8.9-11.1 [facility] Comment on above: Performed By: #### 2 [id number] #### [facility] [address] [place] [address] Chloride [Moles/Vol] 86 mmol/L Low 101-111 [facility] Comment on above: Performed By: #### 2 [id number] #### [facility] [address] [place] [address] CO2 [Moles/Vol] 25 mmol/L Normal 21-31 [facility] Comment on above: Performed By: #### 2 [id number] #### [facility] [address] [place] [address] Creatinine [Mass/Vol] 1.9 mg/dL High 0.5-1.3 [facility] Comment on above: Performed By: #### 2 [id number] #### [facility] [address] [place] [address] Potassium [Moles/Vol] 4.6 mmol/L Normal 3.5-5.3 [facility] Comment on above: Performed By: #### 2 [id number] #### [facility] [address] [place] [address] Urea nitrogen [Mass/Vol] 40 mg/dL High 5-21 [facility] Comment on above: Performed By: #### 2 [id number] #### [facility] [address] [place] [address] BOHBon 03-05-2025 Beta HB Qnt 0.45 mmol/L High 0.02-0.27 [facility] Comment on above: Performed By: #### 2 [id number] #### [facility] [address] [place] [address] CBC w/ Auto Diffon 5 Basophil Absolute 0.1 E9/L Normal 0.0-0.2 [facility] Comment on above: Performed By: #### 2 [id number] #### [facility] [address] [place] [address] Basophils/100 WBC (Bld) 0.9 % Normal 0.0-2.0 [facility] Comment on above: Performed By: #### 2 [id number] #### [facility] [address] [place] [address] Eos Absolute 0.2 E9/L Normal 0.0-0.5 [facility] Comment on above: Performed By: #### 2 [id number] #### [facility] [address] [place] [address] Eosinophils/100 WBC (Bld) 2.4 % Normal 0.0-8.0 [facility] Comment on above: Performed By: #### 2 [id number] #### [facility] [address] [place] [address] Erythrocyte distribution width (RBC) [Ratio] 12.9 % Normal 10.9-14.2 [facility] Comment on above: Performed By: #### 2 [id number] #### [facility] [address] [place] [address] Hematocrit (Bld) [Volume fraction] 44.1 % Normal 37.7-49.0 [facility] Comment on above: Performed By: #### 2 [id number] #### [facility] [address] [place] [address] Hemoglobin (Bld) [Mass/Vol] 14.7 g/dL Normal 13.5-17.5 [facility] Comment on above: Performed By: #### 2 [id number] #### [facility] [address] [place] [address] Lymph Absolute 1.2 E9/L Normal 1.0-4.0 [facility] Comment on above: Performed By: #### 2 [id number] #### [facility] [address] [place] [address] Lymphocytes/100 WBC (Bld) 17.9 % Normal 14.0-50.0 [facility] Comment on above: Performed By: #### 2 286998 #### [facility] [address] [place] [address] MCH (RBC) [Entitic mass] 31.2 pg Normal 27.0-34.0 [facility] Comment on above: Performed By: #### 2 [id number] #### [facility] [address] [place] [address] MCHC (RBC) [Mass/Vol] 33.2 g/dL Normal 31.4-36.0 [facility] Comment on above: Performed By: #### 2 [id number] #### [facility] [address] [place] [address] MCV (RBC) [Entitic vol] 93.8 fL Normal 80.0-100.0 [facility] Comment on above: Performed By: #### 2 [id number] #### [facility] [address] [place] [address] Stanly Absolute 0.4 E9/L Normal 0.2-1.0 [facility] Comment on above: Performed By: #### 2 [id number] #### [facility] [address] [place] [address] Monocytes/100 WBC (Bld) 6.5 % Normal 4.0-14.0 [facility] Comment on above: Performed By: #### 2 [id number] #### [facility] [address] [place] [address] Neutro Absolute 5.0 E9/L Normal 2.0-7.5 [facility] Comment on above: Performed By: #### 2 [id number] #### [facility] [address] [place] [address] Neutro Auto 72.3 % Normal 36.0-75.0 [facility] Comment on above: Performed By: #### 2 [id number] #### [facility] [address] [place] [address] Platelet 230.0 E9/L Normal 150.0-500.0 [facility] Comment on above: Performed By: #### 2 [id number] #### [facility] [address] [place] [address] Platelet mean volume (Bld) [Entitic vol] 8.1 fL Normal 6.4-10.8 [facility] Comment on above: Performed By: #### 2 [id number] #### [facility] [address] [place] [address] RBC 4.7 E12/L Normal 4.3-5.9 [facility] Comment on above: Performed By: #### 2 [id number] #### [facility] [address] [place] [address] WBC 6.9 E9/L Normal 4.0-11.0 [facility] Comment on above: Performed By: #### 2 [id number] #### [facility] [address] [place] [address] Capillary Glucose POCon 02-18 Glucose Cap >500 Abnormal [facility] Comment on above: Result Comment: Pricila elbert Meter Performed By: #### 2 [id number] #### [facility] [address] [place] [address] Glucose Cap >500 Abnormal [facility] Comment on above: Result Comment: Pricila elbert Meter Performed By: #### 2 [id number] #### [facility] [address] [place] [address] Glucose Cap >500 Abnormal [facility] Comment on above: Performed By: #### 2 [id number] #### [facility] [address] [place] [address] ED Clinical Summaryon 2024 ED Clinical Summary ED Clinical Summary [address] [address] ED Clinical Summary Person Information Name: NICOLE LORA/[facility] Age: 65 Years : 1960 Sex: Male Language: Montenegrin PCP: Mounika Brooke MD Marital Status: Phone: [phone] Visit Id: Visit Reason: Hyperglycemia; Medical problem - minor; Leg pain-swelling; LEG PAIN Speciality: Acuity: 2 Enc Type: Inpatient Med Service: Medical Arrival: 03/05/2025 19:53:39 Discharge: LOS: 000 02:16 Checkin: 03/05/2025 19:53:39 Checkout: 03/05/2025 22:09:09 [facility] EV[facility]: Event Name Event Status Request Date/Time [...] 03/05/2025 21:34:31 03/05/2025 21:34:31 03/05/2025 21:34:31 ADDRESS: [address] [place] [id number] [facility] DOC NOTES: MEDICAL INFORMATION: Prescriptions Given: [...] EDUCATION INFORMATION: Instructions: Follow up: DIAGNOSIS: Normal [facility] ED Patient Education Noteon 03-05-2025 ED Patient Education Note ED Patient Education Note Normal [facility] ED Patient Summaryon 025 ED Patient Summary ED Patient Summary [place] [id number] Patient Discharge Instructions Person Information Name: NICOLE LORA Age: 65 Years Arrival Date: 03/05/2025 19:53:39 Discharge Diagnosis: Primary Care Physician: Mounika Brooke MD Provider Information Primary Provider: Alejandro Silva M.D. Advanced Certified Pedorthotist:None The exam and treatment you received in the Emergency Department were for an urgent problem and are not intended as complete care. It is important that you follow up with a doctor, nurse practitioner, or physician???s children's nursery assistant for ongoing care. If your symptoms become [...] opioids can be used to help relieve hwyfmfdv-ow-djeonj pain and are often prescribed following a [...] be struggling with addiction, tell your health account executive healthcare and ask for guidance or call [facility]???S National Helpline at 4-943-066-YUMA. l Source: [place] Department of Health and Human Services/Center for Disease Control & Prevention [facility] (more content not included)... Normal [facility] Extra Blueon 03-05-2025 Tube Collected Plasma Yes Invalid Interpretation Code [facility] Comment on above: Performed By: #### 1 [id number] #### [facility] [address] [place] [address] Glucoseon 03-05-2025 Glucose [Mass/Vol] 726 mg/dL Abnormal 55-199 [facility] Comment on above: Result Comment: Crit ical Result Verified by Repeat Analysis Critical Result S_[id number] Called to and read back by: BINA GONZALEZ at: 03/05/2025 23:09:06 by:[email or web address] Performed By: #### 2 [id number] #### [facility] [address] [place] [address] Hep Func Panelon 03-05-2025 Albumin [Mass/Vol] 3.3 g/dL Normal 3.3-5.0 [facility] Comment on above: Performed By: #### 2 [id number] #### [facility] [address] [place] [address] Albumin/Globulin [Mass ratio] 1.2 {ratio} Normal 1.1-2.2 [facility] Comment on above: Performed By: #### 2 [id number] #### [facility] [address] [place] [address] Alk Phos 160 Int._Unit/L High 21-98 [facility] Comment on above: Performed By: #### 2 [id number] #### [facility] [address] [place] [address] ALT 19 Int._Unit/L Normal 6-46 [facility] Comment on above: Performed By: #### 2 [id number] #### [facility] [address] [place] [address] AST 15 Int._Unit/L Normal 5-43 [facility] Comment on above: Performed By: #### 2 [id number] #### [facility] [address] [place] [address] Bili Direct 0.1 mg/dL Normal 0.0-0.4 [facility] Comment on above: Performed By: #### 2 [id number] #### [facility] [address] [place] [address] Bili Indirect 0.6 mg/dL Normal 0.1-0.9 [facility] Comment on above: Performed By: #### 2 [id number] #### [facility] [address] [place] [address] Bili Total 0.7 mg/dL Normal 0.0-1.1 [facility] Comment on above: Performed By: #### 2 [id number] #### [facility] [address] [place] [address] Globulin (S) [Mass/Vol] 2.8 g/dL Normal 1.4-4.0 [facility] Comment on above: Performed By: #### 2 [id number] #### [facility] [address] [place] [address] Protein [Mass/Vol] 6.1 g/dL Normal 6.0-7.8 [facility] Comment on above: Performed By: #### 2 [id number] #### [facility] [address] [place] [address] Magnesiumon 03-05-2025 Magnesium [Mass/Vol] 2.0 mg/dL Normal 1.3-2.4 [facility] Comment on above: Performed By: #### 2 265264 #### [facility] [address] [place] [address] Pre-Arrival Noteon Pre-Arrival Note Pre-Arrival Note Pre-Arrival Summary Name: , Current Date: 03/05/2025 19:54:07 EDT Gender: Male Date of : Age: 65 Pre-Arrival Type: EMS ETA: 03/05/2025 20:14:00 EDT Primary Care Physician: Presenting Problem: leg pain Pre-Arrival User: Liberty Cope RN Referring Source: Location: Completion Date/Time: 03/05/2025 19:44:00 [facility] Emergency Department Pre-Hospital Report Form Vital Signs: Pre-Hospital Report: Treatment in Route: Response to Treatment: Misc. Issues: Normal [facility] Troponinon 03-05-2025 Troponin HS 10.10 pg/mL Low 15.90-38.40 [facility] Comment on above: Result Comment: The 95% CI (Confidence Interval) PPV (Positive Predictive Value) for myocardial infarction in females is 38 pg/mL, in males 51 pg/mL. The results should be used in conjunction with clinical conditions of myocardial infarction. (Access High Sensitivity Troponin I Instructions For Use, Opal Shirlene, March 2018) Performed By: #### 2 [id number] #### [facility] [address] [place] [address] UA with Cult Rflxon 03-05-20 25 Color (U) Colorless Abnormal Yellow [facility] Comment on above: Result Comment: Micr oscopic readings are only performed on those samples that meet specific criteria set forth by [facility]. Performed By: #### 4 [id number] #### [facility] [address] [place] [address] Ketones Ql (U) Negative Normal Negative [facility] Comment on above: Performed By: #### 4 [id number] #### [facility] [address] [place] [address] UA Blood Negative Normal Negative [facility] Comment on above: Performed By: #### 4 [id number] #### [facility] [address] [place] [address] UA Clarity Clear Normal Clear [facility] Comment on above: Performed By: #### 4 [id number] #### [facility] [address] [place] [address] UA Glucose 4+ mg/dL Abnormal Negative [facility] Comment on above: Performed By: #### 4 [id number] #### [facility] [address] [place] [address] UA Leuk Est Negative Normal Negative [facility] Comment on above: Performed By: #### 4 [id number] #### [facility] [address] [place] [address] UA Mucous Negative Normal Negative [facility] Comment on above: Performed By: #### 4 [id number] #### [facility] [address] [place] [address] UA Nitrite Negative Normal Negative [facility] Comment on above: Performed By: #### 4 [id number] #### [facility] [address] [place] [address] UA pH 6.0 Invalid Interpretation Code 5.0-9.0 [facility] Comment on above: Performed By: #### 4 [id number] #### [facility] [address] [place] [address] UA Protein 1+ mg/dL Abnormal Negative [facility] Comment on above: Performed By: #### 4 [id number] #### [facility] [address] [place] [address] UA RBC 0-3 Normal 0-3 [facility] Comment on above: Performed By: #### 4 [id number] #### [facility] [address] [place] [address] UA Spec Grav 1.024 Invalid Interpretation Code 1.005-1.030 [facility] Comment on above: Performed By: #### 4 [id number] #### [facility] [address] [place] [address] UA Urobilinogen Negative Normal Negative [facility] Comment on above: Performed By: #### 4 [id number] #### [facility] [address] [place] [address] UA WBC 0-5 Normal 0-5 [facility] Comment on above: Performed By: #### 4 [id number] #### [facility] [address] [place] [address] Urobilinogen (U) [Mass/Vol] Negative Normal Negative [facility] Comment on above: Performed By: #### 4 [id number] #### [facility] [address] [place] [address] UA Spec Desc Clean Catch Normal [facility] Comment on above: Performed By: #### 4 [id number] #### [facility] [address] [place] [address] eGFRon 03-05-2025 eGFR 38 mL/min/1.73 m2 Low >=59 [facility] Comment on above: Performed By: #### 1 [id number] #### [facility] [address] [place] [address] Basic Metabolic Panelon 05-0 Anion gap [Moles/Vol] 13.7 mmol/L Normal 6.0-15.0 [facility] Comment on above: Performed By: #### B MP, MG, BHOB, CBC #### [facility] [address] Calcium [Mass/Vol] 8.9 mg/dL Normal 8.6-10.3 [facility] Comment on above: Performed By: #### B MP, MG, BHOB, CBC #### [facility] [address] Chloride [Moles/Vol] 98 mmol/L Normal 98-107 [facility] Comment on above: Performed By: #### B MP, MG, BHOB, CBC #### [facility] [address] CO2 [Moles/Vol] 23.1 mmol/L Normal 21.0-31.0 [facility] Comment on above: Performed By: #### B MP, MG, BHOB, CBC #### [facility] [address] Creatinine [Mass/Vol] 1.72 mg/dL High 0.70-1.30 [facility] Comment on above: Performed By: #### B MP, MG, BHOB, CBC #### [facility] [address] [place] [address] [place] Creatinine Clr Calc Pharmacy 55.60 Normal [facility] Comment on above: Performed By: #### B MP, MG, BHOB, CBC #### [address] Estimated GFR 43.569 mL/Min Normal [facility] [facility] Comment on above: Performed By: #### B MP, MG, BHOB, CBC #### [address] Glucose [Mass/Vol] 739 mg/dL Off scale high 70-100 [facility] Comment on above: Result Comment: Crit ical Result Called to and read back by: SAMPSON WESTON at: 12/22/2024 18:30:49 by:[id number] Random Glucose Reference Range is dependent on time and content of last meal. Glucose of more than 200 mg/dL in a nonstressed, ambulatory subject supports the diagnosis of Diabetes Mellitus. ADA recommended reference range Performed By: #### B MP, MG, BHOB, CBC #### [facility] [address] Potassium [Moles/Vol] 4.8 mmol/L Normal 3.5-5.1 [facility] Comment on above: Performed By: #### B MP, MG, BHOB, CBC #### [facility] [address] Sodium [Moles/Vol] 130 mmol/L Low 136-145 [facility] Comment on above: Performed By: #### B MP, MG, BHOB, CBC #### [facility] [address] Urea nitrogen [Mass/Vol] 38 mg/dL High 7-25 [facility] Comment on above: Performed By: #### B MP, MG, BHOB, CBC #### [address] Beta Hydroxybuterateon 12-22 Beta Hydroxybuterate 1.12 mmol/L High 0.02-0.27 [facility] Comment on above: Result Comment: PERF ORMED BY: [place] [address] PATHOLOGIST [employer] SAL[employer] REPRESENTATIVE MARIA LUISA SHAH M.D. Performed By: #### B MP, MG, BHOB, CBC #### [address] Complete Blood Count Auto Di ffon 12-22-2024 Basophils (Bld) [#/Vol] 0.2 10*3/uL Normal 0.0-0.2 [facility] Comment on above: Result Comment: PERF ORMED BY: [place] [address] PATHOLOGIST [employer] SALES REPRESENTATIVE MARIA LUISA SHAH M.D. Performed By: #### B MP, MG, BHOB, CBC #### [place] [address] [place] Basophils/100 WBC (Bld) 2.6 % Normal . [facility] Comment on above: Performed By: #### B MP, MG, BHOB, CBC #### [address] Eosinophils (Bld) [#/Vol] 0.1 10*3/uL Normal 0.0-0.45 [facility] Comment on above: Performed By: #### B MP, MG, BHOB, CBC #### [address] Eosinophils/100 WBC (Bld) 2.0 % Normal . [facility] Comment on above: Performed By: #### B MP, MG, BHOB, CBC #### [address] Erythrocyte distribution width (RBC) [Ratio] 13.9 % Normal 12.0-14.8 [facility] Comment on above: Performed By: #### B MP, MG, BHOB, CBC #### [address] Hematocrit (Bld) [Volume fraction] 45.4 % Normal 38.8-50.0 [facility] Comment on above: Performed By: #### B MP, MG, BHOB, CBC #### [address] Hemoglobin (Bld) [Mass/Vol] 15.2 g/dL Normal 13.0-17.0 [facility] Comment on above: Performed By: #### B MP, MG, BHOB, CBC #### [address] Lymphocytes (Bld) [#/Vol] 1.5 10*3/uL Normal 1.00-4.8 [facility] Comment on above: Performed By: #### B MP, MG, BHOB, CBC #### [address] Lymphocytes/100 WBC (Bld) 23.7 % Normal . [facility] Comment on above: Performed By: #### B MP, MG, BHOB, CBC #### [address] MCH (RBC) [Entitic mass] 31.5 pg Normal 27.5-35.2 [facility] Comment on above: Performed By: #### B MP, MG, BHOB, CBC #### [address] MCV (RBC) [Entitic vol] 93.9 fL Normal 83.5-101 [facility] Comment on above: Performed By: #### B MP, MG, BHOB, CBC #### [address] Mean Corpuscular HGB Conc 33.5 g/dL Normal 32.5-35.6 [facility] Comment on above: Performed By: #### B MP, MG, BHOB, CBC #### [address] Monocytes (Bld) [#/Vol] 0.6 10*3/uL Normal 0.0-0.8 [facility] Comment on above: Performed By: #### B MP, MG, BHOB, CBC #### [place] [address] [place] Monocytes/100 WBC (Bld) 17.04 % Normal 0.00-20.00 [facility] Comment on above: Performed By: #### B MP, MG, BHOB, CBC #### [address] Monocytes/100 WBC (Bld) 9.3 % Normal . [facility] Comment on above: Performed By: #### B MP, MG, BHOB, CBC #### [address] Neutrophils (Bld) [#/Vol] 3.9 10*3/uL Normal 1.8-7.7 [facility] Comment on above: Performed By: #### B MP, MG, BHOB, CBC #### [address] Neutrophils/100 WBC (Bld) 62.4 % Normal . [facility] Comment on above: Performed By: #### B MP, MG, BHOB, CBC #### [address] NRBC% 0.1 /100{WBC} Normal 0-0.5 [facility] Comment on above: Performed By: #### B MP, MG, BHOB, CBC #### [address] Platelet mean volume (Bld) [Entitic vol] 8.2 fL Normal 6.6-10.1 [facility] Comment on above: Performed By: #### B MP, MG, BHOB, CBC #### [address] Platelets (Bld) [#/Vol] 206 10*3/uL Normal 150-450 [facility] Comment on above: Performed By: #### B MP, MG, BHOB, CBC #### [address] RBC (Bld) [#/Vol] 4.83 10*6/uL Normal 3.90-5.60 [facility] Comment on above: Performed By: #### B MP, MG, BHOB, CBC #### [address] WBC (Bld) [#/Vol] 6.2 10*3/uL Normal 4.1-10.5 [facility] Comment on above: Performed By: #### B MP, MG, BHOB, CBC #### [address] Glucose Poct Glucometerson 0 - Glucose [Mass/Vol] 394 mg/dL Normal [facility] Comment on above: Result Comment: [facility] Glucose Reference Range is dependent on time and content of last meal. Glucose of more than 200 mg/dL in a nonstressed, ambulatory subject supports the diagnosis of Diabetes Mellitus. PERFORMED BY: [place] [address] PATHOLOGIST [employer] SALES REPRESENTATIVE MARIA LUISA SHAH M.D. Performed By: #### G LULS #### Point of Care testing , Commemt1 Normal [facility] Comment on above: Result Comment: Glu2 : WILL NOTIFY DR/RN PERFORMED BY: [place] [address] PATHOLOGIST [employer] SALES REPRESENTATIVE MARIA LUISA SHAH M.D. Performed By: #### G LULS #### Point of Care testing , Glucose [Mass/Vol] 514 mg/dL Off scale high [facility] Comment on above: Result Comment: [facility] Glucose Reference Range is dependent on time and content of last meal. Glucose of more than 200 mg/dL in a nonstressed, ambulatory subject supports the diagnosis of Diabetes Mellitus. Performed By: #### G LULS #### Point of Care testing , Magnesiumon 12-22-2024 Magnesium [Mass/Vol] 2.0 mg/dL Normal 1.9-2.7 [facility] Comment on above: Performed By: #### B MP, MG, BHOB, CBC #### [address] Venous Blood Gason CO2 [Moles/Vol] 24.3 mmol/L Normal 24.0-29.0 [facility] Comment on above: Performed By: #### V BG #### Point of Care testing , HCO3 (Bld) [Moles/Vol] 23.1 mmol/L Normal 23.0-29.0 [facility] Comment on above: Performed By: #### V BG #### Point of Care testing , Respiratory Critical Normal [facility] Comment on above: Result Comment: Crit ical Value called on: 12/22/2024 at 17:51 PERFORMED BY: [place] [address] PATHOLOGIST [employer] SAL[employer] REPRESENTATIVE MARIA LUISA SHAH M.D. Performed By: #### V BG #### Point of Care testing , VBG Base Excess -1.8 mmol/L Normal -3.0-3.0 [facility] Comment on above: Performed By: #### V BG #### Point of Care testing , VBG Draw Site Venous Normal [facility] Comment on above: Performed By: #### V BG #### Point of Care testing , VBG Frac Inspired O2 21 % Normal [facility] Comment on above: Performed By: #### V BG #### Point of Care testing , VBG O2 Content 6.8 mmol/L Normal 6.6-9.7 [facility] Comment on above: Performed By: #### V BG #### Point of Care testing , VBG Oxygen Saturation 68.3 % Low 73.0-76.0 [facility] Comment on above: Performed By: #### V BG #### Point of Care testing , VBG PCO2 39.8 mm[Hg] Normal 38.0-50.0 [facility] Comment on above: Performed By: #### V BG #### Point of Care testing , VBG PH Venous PH 7.38 Normal 7.32-7.43 [facility] Comment on above: Performed By: #### V BG #### Point of Care testing , VBG PO2 32.0 mm[Hg] Low 35.0-45.0 [facility] Comment on above: Performed By: #### V BG #### Point of Care testing , CBC w/ Auto Diffon 5 Basophils/100 WBC (Bld) 0.9 % Normal 0.0-2.0 [facility] Comment on above: Performed By: #### 2 [id number] #### [facility] [address] [place] [address] Basophils/Leukocytes Auto (Bld) [Pure # fraction] 0.1 E9/L Normal 0.0-0.2 [facility] Comment on above: Performed By: #### 2 [id number] #### [facility] [address] [place] [address] Eosinophils (Bld) [#/Vol] 0.3 E9/L Normal 0.0-0.5 [facility] Comment on above: Performed By: #### 2 [id number] #### [facility] [address] [place] [address] Eosinophils/100 WBC (Bld) 4.2 % Normal 0.0-8.0 [facility] Comment on above: Performed By: #### 2 [id number] #### [facility] [address] [place] [address] Erythrocyte distribution width (RBC) [Ratio] 14.0 % Normal 10.9-14.2 [facility] Comment on above: Performed By: #### 2 [id number] #### [facility] [address] [place] [address] Hematocrit (Bld) [Volume fraction] 40.7 % Normal 37.7-49.0 [facility] Comment on above: Performed By: #### 2 [id number] #### [facility] [address] [place] [address] Hemoglobin (Bld) [Mass/Vol] 14.3 g/dL Normal 13.5-17.5 [facility] Comment on above: Performed By: #### 2 [id number] #### [facility] [address] [place] [address] Lymphocytes (Bld) [#/Vol] 1.9 E9/L Normal 1.0-4.0 [facility] Comment on above: Performed By: #### 2 [id number] #### [facility] [address] [place] [address] Lymphocytes/100 WBC (Bld) 26.6 % Normal 14.0-50.0 [facility] Comment on above: Performed By: #### 2 [id number] #### [facility] [address] [place] [address] MCH (RBC) [Entitic mass] 31.3 pg Normal 27.0-34.0 [facility] Comment on above: Performed By: #### 2 [id number] #### [facility] [address] [place] [address] MCHC (RBC) [Mass/Vol] 35.1 g/dL Normal 31.4-36.0 [facility] Comment on above: Performed By: #### 2 [id number] #### [facility] [address] [place] [address] MCV (RBC) [Entitic vol] 89.2 fL Normal 80.0-100.0 [facility] Comment on above: Performed By: #### 2 [id number] #### [facility] [address] [place] [address] Monocytes (Bld) [#/Vol] 0.5 E9/L Normal 0.2-1.0 [facility] Comment on above: Performed By: #### 2 [id number] #### [facility] [address] [place] [address] Neutrophils (Bld) [#/Vol] 4.4 E9/L Normal 2.0-7.5 [facility] Comment on above: Performed By: #### 2 [id number] #### [facility] [address] [place] [address] Neutrophils/100 WBC (Bld) 61.3 % Normal 36.0-75.0 [facility] Comment on above: Performed By: #### 2 [id number] #### [facility] [address] [place] [address] Platelet mean volume (Bld) [Entitic vol] 8.2 fL Normal 6.4-10.8 [facility] Comment on above: Performed By: #### 2 655915 #### [facility] [address] [place] [address] Platelets (Bld) [#/Vol] 205.0 E9/L Normal 150.0-500.0 [facility] Comment on above: Performed By: #### 2 [id number] #### [facility] [address] [place] [address] RBC (Bld) [#/Vol] 4.6 E12/L Normal 4.3-5.9 [facility] Comment on above: Performed By: #### 2 484452 #### [facility] [address] [place] [address] WBC corrected for nucl RBC Auto (Bld) [#/Vol] 7.1 E9/L Normal 4.0-11.0 [facility] Comment on above: Performed By: #### 2 910156 #### [facility] [address] [place] [address] CHEMISTRYOrdered By: Lab ROP User on 12-21-2024 Glucose [Mass/Vol] 330 mg/dL High 55 - 99 mg/dL FTM C POC Subsection Comment on above: Result Comment: Pricila elbert Meter POC Username TATYANA CASAREZ Invalid Interpretation Code [facility] POC Subsection Sodium [Moles/Vol] 259992790083 mmol/L Invalid Interpretation Code [facility] POC Subsection Sodium [Moles/Vol] 191988026 mmol/L Invalid Interpretation Code [facility] POC Subsection Glucose [Mass/Vol] 483 mg/dL Invalid Interpretation Code 55 - 99 mg/dL [facility] POC Subsection Comment on above: Result Comment: Pricila elbert Meter POC Username TATYANA CASAREZ Invalid Interpretation Code [facility] POC Subsection Sodium [Moles/Vol] 114989275 mmol/L Invalid Interpretation Code [facility] POC Subsection Sodium [Moles/Vol] 270647436412 mmol/L Invalid Interpretation Code [facility] POC Subsection Glucose [Mass/Vol] 361 mg/dL High 55 - 99 mg/dL [facility] C POC Subsection Comment on above: Result Comment: Pricila elbert Meter POC Username TATYANA CASAREZ Invalid Interpretation Code [facility] POC Subsection Sodium [Moles/Vol] 291170314 mmol/L Invalid Interpretation Code [facility] POC Subsection Sodium [Moles/Vol] 641138278669 mmol/L Invalid Interpretation Code [facility] POC Subsection [...] 12-21-2024 Albumin [Mass/Vol] 2.9 g/dL Low 3.3-5.0 [facility] Comment on above: Performed By: #### 2 [id number] #### [facility] [address] [place] [address] Albumin/Globulin (S) [Mass conc ratio] 1.1 Normal 1.1-2.2 [facility] Comment on above: Performed By: #### 2 [id number] #### [facility] [address] [place] [address] ALP [Catalytic activity/Vol] 92 Int._Unit/L Normal 21-98 [facility] Comment on above: Performed By: #### 2 [id number] #### [facility] [address] [place] [address] ALT No additional P-5'-P [Catalytic activity/Vol] 16 Int._Unit/L Normal 6-46 [facility] Comment on above: Performed By: #### 2 [id number] #### [facility] [address] [place] [address] Anion gap [Moles/Vol] 11 mmol/L Normal 6-16 [facility] Comment on above: Performed By: #### 2 970518 #### [facility] [address] [place] [address] AST [Catalytic activity/Vol] 16 Int._Unit/L Normal 5-43 [facility] Comment on above: Performed By: #### 2 700833 #### [facility] [address] [place] [address] Bilirubin [Mass/Vol] 0.6 mg/dL Normal 0.0-1.1 [facility] Comment on above: Performed By: #### 2 406990 #### [facility] [address] [place] [address] Calcium [Mass/Vol] 8.1 mg/dL Low 8.9-11.1 [facility] Comment on above: Performed By: #### 2 467496 #### [facility] [address] [place] [address] Chloride [Moles/Vol] 102 mmol/L Normal 101-111 [facility] Comment on above: Performed By: #### 2 000135 #### [facility] [address] [place] [address] CO2 [Moles/Vol] 25 mmol/L Normal 21-31 [facility] Comment on above: Performed By: #### 2 617691 #### [facility] [address] [place] [address] Creatinine [Mass/Vol] 1.7 mg/dL High 0.5-1.3 [facility] Comment on above: Performed By: #### 2 134957 #### [facility] [address] [place] [address] Globulin (S) [Mass/Vol] 2.7 g/dL Normal 1.4-4.0 [facility] Comment on above: Performed By: #### 2 556726 #### [facility] [address] [place] [address] Glucose [Mass/Vol] 307 mg/dL High 55-199 [facility] Comment on above: Performed By: #### 2 446042 #### [facility] [address] [place] [address] Potassium [Moles/Vol] 4.0 mmol/L Normal 3.5-5.3 [facility] Comment on above: Performed By: #### 2 147758 #### [facility] [address] [place] [address] Protein [Mass/Vol] 5.6 g/dL Low 6.0-7.8 [facility] Comment on above: Performed By: #### 2 988234 #### [facility] [address] [place] [address] Sodium [Moles/Vol] 134 mmol/L Low 135-145 [facility] Comment on above: Performed By: #### 2 573813 #### [facility] [address] [place] [address] Urea nitrogen [Mass/Vol] 46 mg/dL High 5-21 [facility] Comment on above: Performed By: #### 2 110753 #### [facility] [address] [place] [address] Urea nitrogen/Creatinine [Mass ratio] 27 No Units High 10-20 [facility] Comment on above: Performed By: #### 2 682317 #### [facility] [address] [place] [address] Capillary Glucose POCon 05-0 Glucose [Mass/Vol] 330 mg/dL High 55-99 [facility] Comment on above: Result Comment: Pricila elbert Meter Performed By: #### 2 [id number] #### [facility] [address] [place] [address] Glucose [Mass/Vol] 483 mg/dL Abnormal 55-99 [facility] Comment on above: Result Comment: Pricila elbert Meter Performed By: #### 2 [id number] #### [facility] [address] [place] [address] Glucose [Mass/Vol] 361 mg/dL High 55-99 [facility] Comment on above: Result Comment: Pricila elbert Meter Performed By: #### 2 [id number] #### [facility] [address] [place] [address] Glucose [Mass/Vol] 274 mg/dL High 55-99 [facility] Comment on above: Result Comment: Thelma maxwell RN/ Performed By: #### 2 [id number] #### [facility] [address] [place] [address] Glucose [Mass/Vol] 246 mg/dL High 55-99 [facility] Comment on above: Result Comment: Thelma maxwell RN/ Performed By: #### 2 [id number] #### [facility] [address] [place] [address] Glucose [Mass/Vol] 95 mg/dL Normal 55-99 [facility] Comment on above: Result Comment: Thelma BAE Performed By: #### 2 [id number] #### [facility] [address] [place] [address] Glucose [Mass/Vol] 91 mg/dL Normal 55-99 [facility] Comment on above: Performed By: #### 2 [id number] #### [facility] [address] [place] [address] ED Note-Physicianon 12-22-19 ED Note-Physician ED Note-Physician [...] BID, # 20 cap(s), Refills(s) 0, Pharmacy: [facility] #[id number], 183, cm, 06/23/24 13:45:00 EST, Height/Length Dosing, [...] IV Dispos (more content not included)... Normal [facility] Comment on above: Result Comment: Elec [...] day(s), # 9 tab(s), Refills(s) 0, Pharmacy: [facility] #[id number], 183, cm, 12/19/24 10:26:00 EDT, Height/Length Dosing, [...] NS 1000 ml Bolus, 1000 mL, IV [id number] [F], 1000 mL, IV Valium 5 mg [...] days 12/22/[address] [place] [address]- Business (1) Additional Instructions: Patient Education Hyperglycemia Attestation I performed a substantive part of the MDM during the patient???s E/M visit. I personally made or approved the documented management plan and acknowledge its r (more content not included)... Normal [facility] Comment on above: Result Comment: Elec [...] Discharge Instructions Follow up closely with your counselor manager. Return to ER if symptoms return or worsen. Do not start tradjenta prescribed by your counselor manager until you speak ask him it if is safe with your insulin. Can cause lows together. New Follow Up Appointments after Discharge Follow Up with KAYLA SWEENEY When: Comments: Follow as scheduled in December 2024 Where: [address] [place] [address]- Business (1) Follow Up with Mounika Brooke When: Within 7 to 10 days Comments: Call for followup appointment Where: [address] [place] [address]- Business (1) Medications What How Much When Why Instructions Next Dose New losartan (losartan 50 mg Tab) 1 Tablets By Mouth Every day Hypertension Refills: 1 Pickup at [facility][id number] 12[place]22 @ 0900am [facility] (Glucose Kit) See instructions Hyperglycemia Glucose meter. Include autolet, matching test strips, lancets, & alcohol wipes, #100 or as allowed by insurance; DX: E11.9 [facility] at [id number] [facility] (Pen Needle 31G x 6mm) See instructions Hyperglycemia Refills: 1 Pen Needle 31G x 6mm Pickup at [facility] #[id number] Changed insulin regular (HumuLIN R KwikPen (Concentrated) human recombinant 500 units/ mL subcutaneous solution) See instructions Diabetes mellitus with neuropathy inject 40 units under the skin in the morning, 40 in the evening and 20 at bedtime. Pickup at [facility] #08531 12/21 @ 0800pm Unchanged gabapentin (gabapentin 600 mg Tab) 1 Tablets By Mouth 3 times a day resume Unchanged methocarbamol (Robaxin-750 oral tablet) 1 Tablets By Mouth 3 times a day Duration: 3 Days resume Pharmacy Information [facility] #[id number]: [address] [place], [place] [id number] [phone] Test Results CBC BMP WBC: 7.1 E9/L [...] (12/21/24 05:04: (more content not included)... Normal [facility] eGFRon 12-21-2024 eGFR 44 mL/min/1.73 m2 Low >=59 [facility] Comment on above: Performed By: #### 1 [id number] #### [facility] [address] [place] [address] BMPon 12-20-2024 Glucose [Mass/Vol] 792 mg/dL Abnormal 55-199 [facility] Comment on above: Result Comment: Crit ical Result [id number] Called to and read back by: PADDY BETANCOURT at: 12/20/2024 15:01:20 by:[id number] Critical Result Verified by Repeat Analysis Performed By: #### 2 [id number] #### [facility] [address] [place] [address] Anion gap [Moles/Vol] 16 mmol/L Normal 6-16 [facility] Comment on above: Performed By: #### 2 [id number] #### [facility] [address] [place] [address] Creatinine [Mass/Vol] 1.9 mg/dL High 0.5-1.3 [facility] Comment on above: Performed By: #### 2 [id number] #### [facility] [address] [place] [address] Urea nitrogen [Mass/Vol] 52 mg/dL High 5-21 [facility] Comment on above: Performed By: #### 2 [id number] #### [facility] [address] [place] [address] Urea nitrogen/Creatinine [Mass ratio] 27 No Units High 10-20 [facility] Comment on above: Performed By: #### 2 [id number] #### [facility] [address] [place] [address] Calcium [Mass/Vol] 8.8 mg/dL Low 8.9-11.1 [facility] Comment on above: Performed By: #### 2 143632 #### [facility] [address] [place] [address] Chloride [Moles/Vol] 88 mmol/L Low 101-111 [facility] Comment on above: Performed By: #### 2 496006 #### [facility] [address] [place] [address] CO2 [Moles/Vol] 24 mmol/L Normal 21-31 [facility] Comment on above: Performed By: #### 2 [id number] #### [facility] [address] [place] [address] Potassium [Moles/Vol] 5.0 mmol/L Normal 3.5-5.3 [facility] Comment on above: Performed By: #### 2 [id number] #### [facility] [address] [place] [address] Sodium [Moles/Vol] 123 mmol/L Low 135-145 [facility] Comment on above: Performed By: #### 2 809072 #### [facility] [address] [place] [address] BOHBon 12-20-2024 Beta HB Qnt 2.86 mmol/L High 0.02-0.27 [facility] Comment on above: Performed By: #### 2 [id number] #### [facility] [address] [place] [address] Blood Gas Art, with Lytes, G hugh, [place] 12-20-2024 a/A Ratio Art 63.60 % Normal >=0.80 [facility] Comment on above: Performed By: #### 4 [id number] #### [facility] [address] [place] [address] AaDO2 Art 36.1 mmHg High 5.0-15.0 [facility] Comment on above: Performed By: #### 4 [id number] #### [facility] [address] [place] [address] Allens Test Positive Normal [facility] Comment on above: Performed By: #### 4 [id number] #### [facility] [address] [place] [address] Base Excess Arterial -2.8 mmol/L Low >=2.8 [facility] Comment on above: Performed By: #### 4 [id number] #### [facility] [address] [place] [address] cCa2+ Art 4.78 mg/dL Normal 4.40-5.30 [facility] Comment on above: Performed By: #### 4 [id number] #### [facility] [address] [place] [address] cCl- Art 92.0 mmol/L Low 101.0-111.0 [facility] Comment on above: Performed By: #### 4 [id number] #### [facility] [address] [place] [address] cGlu Art 749 mg/dL Abnormal 55-99 [facility] Comment on above: Result Comment: Resu lts Called To NICOLE YOLANDE By ASHLEY TUBBS12/20/2024 14:12:32 EDT And Read Back For Confirmation On _. Performed By: #### 4 [id number] #### [facility] [address] [place] [address] cK+ Art 4.5 mmol/L Normal 3.5-5.3 [facility] Comment on above: Performed By: #### 4 [id number] #### [facility] [address] [place] [address] cLac Art .8 mmol/L Normal .5-2.2 [facility] Comment on above: Performed By: #### 4 [id number] #### [facility] [address] [place] [address] supervisor scrap preparation+ Art 125.0 mmol/L Low 135.0-145.0 [facility] Comment on above: Performed By: #### 4 [id number] #### [facility] [address] [place] [address] Drawn by [facility] Invalid Interpretation Code [facility] Comment on above: Performed By: #### 4 [id number] #### [facility] [address] [place] [address] FCOHb Art 2.1 % Normal 1.5-4.9 [facility] Comment on above: Result Comment: Refe rence range Nonsmoker <1.5% Smoker <5.0% Heavy Smoker <9.0% Performed By: #### 4 [id number] #### [facility] [address] [place] [address] FIO2 BG 21 Invalid Interpretation Code [facility] Comment on above: Performed By: #### 4 [id number] #### [facility] [address] [place] [address] FO2Hb Art 91.9 % Low 93.0-100.0 [facility] Comment on above: Performed By: #### 4 [id number] #### [facility] [address] [place] [address] HCO3 (Bld) [Moles/Vol] 22.0 mmol/L Normal 22.0-26.0 [facility] Comment on above: Performed By: #### 4 [id number] #### [facility] [address] [place] [address] Hemoglobin (Bld) [Mass/Vol] 15.4 g/dL Normal 12.0-17.0 [facility] Comment on above: Performed By: #### 4 [id number] #### [facility] [address] [place] [address] Oxygen saturation in Blood 93.9 % Low 95.0-100.0 [facility] Comment on above: Performed By: #### 4 [id number] #### [facility] [address] [place] [address] P CO2 Arterial 40.0 mmHg Normal 35.0-45.0 [facility] Comment on above: Performed By: #### 4 [id number] #### [facility] [address] [place] [address] P O2 Arterial 63.1 mmHg Low 80.0-100.0 [facility] Comment on above: Performed By: #### 4 [id number] #### [facility] [address] [place] [address] pH Arterial 7.358 Normal 7.350-7.450 [facility] Comment on above: Performed By: #### 4 [id number] #### [facility] [address] [place] [address] Sample Site R Radial Normal [facility] Comment on above: Performed By: #### 4 [id number] #### [facility] [address] [place] [address] Sample Type Arterial Draw Normal [facility] Comment on above: Performed By: #### 4 [id number] #### [facility] [address] [place] [address] CBC w/ Auto Diffon 5 Basophils/100 WBC (Bld) 1.1 % Normal 0.0-2.0 [facility] Comment on above: Performed By: #### 2 [id number] #### [facility] [address] [place] [address] Basophils/Leukocytes Auto (Bld) [Pure # fraction] 0.1 E9/L Normal 0.0-0.2 [facility] Comment on above: Performed By: #### 2 [id number] #### [facility] [address] [place] [address] Eosinophils (Bld) [#/Vol] 0.2 E9/L Normal 0.0-0.5 [facility] Comment on above: Performed By: #### 2 [id number] #### [facility] [address] [place] [address] Eosinophils/100 WBC (Bld) 3.8 % Normal 0.0-8.0 [facility] Comment on above: Performed By: #### 2 [id number] #### [facility] [address] [place] [address] Erythrocyte distribution width (RBC) [Ratio] 13.6 % Normal 10.9-14.2 [facility] Comment on above: Performed By: #### 2 [id number] #### [facility] [address] [place] [address] Hematocrit (Bld) [Volume fraction] 46.1 % Normal 37.7-49.0 [facility] Comment on above: Performed By: #### 2 [id number] #### [facility] [address] [place] [address] Hemoglobin (Bld) [Mass/Vol] 15.6 g/dL Normal 13.5-17.5 [facility] Comment on above: Performed By: #### 2 [id number] #### [facility] [address] [place] [address] Lymphocytes (Bld) [#/Vol] 1.3 E9/L Normal 1.0-4.0 [facility] Comment on above: Performed By: #### 2 [id number] #### [facility] [address] [place] [address] Lymphocytes/100 WBC (Bld) 21.6 % Normal 14.0-50.0 [facility] Comment on above: Performed By: #### 2 [id number] #### [facility] [address] [place] [address] MCH (RBC) [Entitic mass] 30.9 pg Normal 27.0-34.0 [facility] Comment on above: Performed By: #### 2 [id number] #### [facility] [address] [place] [address] MCHC (RBC) [Mass/Vol] 33.9 g/dL Normal 31.4-36.0 [facility] Comment on above: Performed By: #### 2 [id number] #### [facility] [address] [place] [address] MCV (RBC) [Entitic vol] 91.3 fL Normal 80.0-100.0 [facility] Comment on above: Performed By: #### 2 [id number] #### [facility] [address] [place] [address] Monocytes (Bld) [#/Vol] 0.6 E9/L Normal 0.2-1.0 [facility] Comment on above: Performed By: #### 2 [id number] #### [facility] [address] [place] [address] Neutrophils (Bld) [#/Vol] 4.0 E9/L Normal 2.0-7.5 [facility] Comment on above: Performed By: #### 2 [id number] #### [facility] [address] [place] [address] Neutrophils/100 WBC (Bld) 64.6 % Normal 36.0-75.0 [facility] Comment on above: Performed By: #### 2 [id number] #### [facility] [address] [place] [address] Platelet mean volume (Bld) [Entitic vol] 8.0 fL Normal 6.4-10.8 [facility] Comment on above: Performed By: #### 2 [id number] #### [facility] [address] [place] [address] Platelets (Bld) [#/Vol] 190.0 E9/L Normal 150.0-500.0 [facility] Comment on above: Performed By: #### 2 [id number] #### [facility] [address] [place] [address] RBC (Bld) [#/Vol] 5.1 E12/L Normal 4.3-5.9 [facility] Comment on above: Performed By: #### 2 [id number] #### [facility] [address] [place] [address] WBC corrected for nucl RBC Auto (Bld) [#/Vol] 6.2 E9/L Normal 4.0-11.0 [facility] Comment on above: Performed By: #### 2 [id number] #### [facility] [address] [place] [address] CHEMISTRYOrdered By: SYSTEM SYSTEM on 12-20-2024 Albumin [...] back by: PADDY BETANCOURT at: 12/20/2024 15:01:20 by:[id number] Critical Result Verified by Repeat Analysis Potassium [...] 05-0 Glucose [Mass/Vol] 180 mg/dL High 55-99 [facility] Comment on above: Result Comment: Thelma BAE Performed By: #### 2 [id number] #### [facility] [address] [place] [address] Glucose [Mass/Vol] 478 mg/dL Abnormal 55-99 [facility] Comment on above: Result Comment: Thelma BAE Performed By: #### 2 [id number] #### [facility] [address] [place] [address] Glucose [Mass/Vol] 476 mg/dL Abnormal 55-99 [facility] Comment on above: Result Comment: Thelma BAE Performed By: #### 2 [id number] #### [facility] [address] [place] [address] Glucose [Mass/Vol] mg/dL Abnormal 55-99 [facility] Comment on above: Result Comment: Thelma BAE Performed By: #### 2 [id number] #### [facility] [address] [place] [address] Glucose [Mass/Vol] mg/dL Abnormal 55-99 [facility] Comment on above: Result Comment: Thelma BAE Performed By: #### 2 [id number] #### [facility] [address] [place] [address] Glucose [Mass/Vol] mg/dL Abnormal 55-99 [facility] Comment on above: Performed By: #### 2 [id number] #### [facility] [address] [place] [address] ED Clinical Summaryon 2024 ED Clinical Summary ED Clinical Summary [address] [address] ED Clinical Summary Person Information Name: NICOLE LORA[place] Age: 64 Years : 1960 Sex: Male Language: Montenegrin PCP: Mounika Brooke MD Marital Status: Phone: [phone] Visit Id: Visit Reason: Knee pain-swelling; Hyperglycemia; L KNEE PAIN Speciality: Acuity: 3 Enc Type: Observation Med Service: Medical Arrival: 12/20/2024 13:29:49 Discharge: LOS: 000 05:27 Checkin: 12/20/2024 13:29:49 Checkout: 12/20/2024 18:56:56 Dispo Type: Admitted as IP to this [facility] EVENTS: Event Name Event Status Request Date/Time [...] 12/20/2024 18:35:13 12/20/2024 18:35:13 12/20/2024 18:35:14 ADDRESS: [address] [place] [phone] [facility] DOC NOTES: MEDICAL INFORMATION: Prescriptions Given: [...] of other right toe(s); 6:Hyponatremia; 7:Obesity Normal [facility] ED Patient Education Noteon 12-20-2024 ED Patient Education Note ED Patient Education Note Normal [facility] ED Patient Summaryon 025 ED Patient Summary ED Patient Summary [place] [id number] Patient Discharge Instructions Person Information Name: NICOLE LORA Age: 64 Years Arrival Date: 12/20/2024 13:29:49 Discharge Diagnosis: 1:Hyperglycemia; 2:Leg muscle spasm; 3:Noncompliance with medication regimen; 4:AMY (acute kidney injury); 5:Acquired absence of other right toe(s); 6:Hyponatremia; 7:Obesity Primary Care Physician: Mendy LYMAN, Mounika Lugo Provider Information Primary Provider: Nicole Myers DO Advanced Certified Pedorthotist:Paddy Betancourt PA-C. The exam and treatment you received in the Emergency Department were for an urgent problem and are not intended as complete care. It is important that you follow up with a doctor, nurse practitioner, or physician???s children's nursery assistant for ongoing care. If your symptoms become [...] opioids can be used to help relieve rckuzzpy-vr-kzjpsr pain and are often prescribed following a [...] be struggling with addiction, tell your health account executive healthcare and ask for (more content not included)... Normal [facility] Extra Blueon 12-20-2024 Tube Collected Plasma Yes Invalid Interpretation Code [facility] Comment on above: Performed By: #### 1 [id number] #### [facility] [address] [place] [address] Blood GasesOrdered By: Akash Tubbs on 12-20-2024 [...] 2.2 mmol/L [facility] Res p Auto SS supervisor scrap preparation+ Art 125.0 mmol/L Low 135.0 - 145.0 mmol/L [facility] Resp Auto SS Drawn by [facility] Invalid Interpretation Code [facility] Resp Auto SS FCOHb Art 2.1 % Normal 1.5 - 4.9 % [facility] Resp Auto SS Comment on above: Interpretive Data: R eference range Nonsmoker <1.5% Smoker <5.0% Heavy Smoker <9.0% FO2Hb Art 91.9 % Low 93.0 - 100.0 % [facility] Resp Auto SS HCO3 (Bld) [Moles/Vol] 22.0 mmol/L Normal 22.0 - 26.0 mmol/L [facility] Resp Auto SS Hemoglobin (Bld) [Mass/Vol] 15.4 g/dL Normal 12.0 - 17.0 gm/dL [facility] Resp Auto SS P CO2 Arterial 40.0 mm[Hg] Normal 35.0 - 45.0 mmHg [facility] C Resp Auto SS P O2 Arterial 63.1 mm[Hg] Low 80.0 - 100.0 mmHg [facility] C Resp Auto SS pH (Bld) 7.358 [pH] Normal 7.350 - 7.450 [facility] Resp Auto SS Sample Site R Radial (12/20/24 2:09 PM) Normal [facility] Resp Auto SS Sample Type Arterial Draw (12/20/24 2:09 PM) Normal [facility] Resp Auto SS Sodium [Moles/Vol] 21 mmol/L Invalid Interpretation Code [facility] Resp Auto SS HEMATOLOGYOrdered By: SYSTEM SYSTEM [...] (S) [Mass conc ratio] 1.1 Normal 1.1-2.2 [facility] Comment on above: Performed By: #### 2 [id number] #### [facility] [address] [place] [address] Bilirubin.indirect [Mass or moles/Vol] 0.8 mg/dL Normal 0.1-0.9 [facility] Comment on above: Performed By: #### 2 [id number] #### [facility] [address] [place] [address] Globulin (S) [Mass/Vol] 3.3 g/dL Normal 1.4-4.0 [facility] Comment on above: Performed By: #### 2 [id number] #### [facility] [address] [place] [address] Albumin [Mass/Vol] 3.5 g/dL Normal 3.3-5.0 [facility] Comment on above: Performed By: #### 2 [id number] #### [facility] [address] [place] [address] ALP [Catalytic activity/Vol] 156 Int._Unit/L High 21-98 [facility] Comment on above: Performed By: #### 2 [id number] #### [facility] [address] [place] [address] ALT No additional P-5'-P [Catalytic activity/Vol] 22 Int._Unit/L Normal 6-46 [facility] Comment on above: Performed By: #### 2 [id number] #### [facility] [address] [place] [address] AST [Catalytic activity/Vol] 18 Int._Unit/L Normal 5-43 [facility] Comment on above: Performed By: #### 2 [id number] #### [facility] [address] [place] [address] Bilirubin [Mass/Vol] 0.9 mg/dL Normal 0.0-1.1 [facility] Comment on above: Performed By: #### 2 [id number] #### [facility] [address] [place] [address] Bilirubin.direct [Mass/Vol] 0.1 mg/dL Normal 0.0-0.4 [facility] Comment on above: Performed By: #### 2 [id number] #### [facility] [address] [place] [address] Protein [Mass/Vol] 6.8 g/dL Normal 6.0-7.8 [facility] Comment on above: Performed By: #### 2 [id number] #### [facility] [address] [place] [address] Pre-Arrival Noteon Pre-Arrival Note Pre-Arrival Note Pre-Arrival Summary Name: , [place] [facility] Current Date: 12/20/2024 13:30:15 EDT Gender: Male Date of : Age: 64 Pre-Arrival Type: EMS ETA: 12/20/2024 13:49:00 EDT Primary Care Physician: Presenting Problem: L knee pain, seen yesterday AMA? Pre-Arrival User: Kiersten Theodore RN Referring Source: Location: [place] Completion Date/Time: 12/20/2024 13:20:00 [facility] Emergency Department Pre-Hospital Report Form Vital Signs: Pre-Hospital Report: Treatment in Route: Response to Treatment: Misc. Issues: Normal [facility] UA with Cult Rflxon 12-21-19 25 Bilirubin Ql (U) Negative Normal Negative [facility] Comment on above: Performed By: #### 4 [id number] #### [facility] [address] [place] [address] Clarity (U) Clear Normal Clear [facility] Comment on above: Performed By: #### 4 [id number] #### [facility] [address] [place] [address] Color (U) Colorless Abnormal Yellow [facility] Comment on above: Result Comment: Micr oscopic readings are only performed on those samples that meet specific criteria set forth by [facility]. Performed By: #### 4 [id number] #### [facility] [address] [place] [address] Glucose Ql (U) 4+ mg/dL Abnormal Negative [facility] Comment on above: Performed By: #### 4 [id number] #### [facility] [address] [place] [address] Hemoglobin Auto test strip (U) [Mass/Vol] Negative Normal Negative [facility] Comment on above: Performed By: #### 4 [id number] #### [facility] [address] [place] [address] Ketones Auto test strip Ql (U) Trace Abnormal Negative [facility] Comment on above: Performed By: #### 4 [id number] #### [facility] [address] [place] [address] Leukocyte esterase Auto test strip Ql (U) Negative Normal Negative [facility] Comment on above: Performed By: #### 4 [id number] #### [facility] [address] [place] [address] Mucus Auto Ql (U) Negative Normal Negative [facility] Comment on above: Performed By: #### 4 [id number] #### [facility] [address] [place] [address] Nitrite Auto test strip Ql (U) Negative Normal Negative [facility] Comment on above: Performed By: #### 4 [id number] #### [facility] [address] [place] [address] pH (U) 5.5 [pH] Invalid Interpretation Code 5.0-9.0 [facility] Comment on above: Performed By: #### 4 [id number] #### [facility] [address] [place] [address] Protein Ql (U) 1+ mg/dL Abnormal Negative [facility] Comment on above: Performed By: #### 4 [id number] #### [facility] [address] [place] [address] Specific gravity (U) [Rel density] 1.018 Invalid Interpretation Code 1.005-1.030 [facility] Comment on above: Performed By: #### 4 [id number] #### [facility] [address] [place] [address] Urobilinogen (U) [Mass/Vol] Negative Normal Negative [facility] Comment on above: Performed By: #### 4 [id number] #### [facility] [address] [place] [address] Type of Urine collection method Clean Catch Normal [facility] Comment on above: Performed By: #### 4 [id number] #### [facility] [address] [place] [address] URINALYSISOrdered By: SYSTEM SYSTEM on 12-20-2024 Bilirubin [...] that meet specific criteria set forth by [facility]. Glucose Ql (U) 4+ mg/dL [...] MD Transcribed by: KAT Technologist: Boris BARNEY [facility] eGFRon 12-20-2024 eGFR 38 mL/min/1.73 m2 Low >=59 [facility] Comment on above: Performed By: #### 1 [id number] #### [facility] [address] [place] [address] BMPon 12-19-2024 Anion gap [Moles/Vol] 15 mmol/L Normal 6-16 [facility] Comment on above: Performed By: #### 2 [id number] #### [facility] [address] [place] [address] Calcium [Mass/Vol] 8.1 mg/dL Low 8.9-11.1 [facility] Comment on above: Performed By: #### 2 [id number] #### [facility] [address] [place] [address] Chloride [Moles/Vol] 80 mmol/L Abnormal 101-111 [facility] Comment on above: Result Comment: Crit ical Result Verified by Repeat Analysis Critical Result S_CL:80 Called to and read back by: TREMAINE LAND at: 12/19/2024 12:00:32 by:VANESSA Performed By: #### 2 [id number] #### [facility] [address] [place] [address] CO2 [Moles/Vol] 24 mmol/L Normal 21-31 [facility] Comment on above: Performed By: #### 2 975358 #### [facility] [address] [place] [address] Creatinine [Mass/Vol] 1.9 mg/dL High 0.5-1.3 [facility] Comment on above: Performed By: #### 2 380855 #### [facility] [address] [place] [address] Glucose [Mass/Vol] 1228 mg/dL Abnormal 55-199 [facility] Comment on above: Result Comment: Crit ical Result Verified by Repeat Analysis Result Verified by Dilution Critical Result S_GLU:[id number] Called to and read back by: TREMAINE LAND at: 12/19/2024 12:00:32 by:VANESSA Performed By: #### 2 [id number] #### [facility] [address] [place] [address] Potassium [Moles/Vol] 4.7 mmol/L Normal 3.5-5.3 [facility] Comment on above: Performed By: #### 2 [id number] #### [facility] [address] [place] [address] Sodium [Moles/Vol] 114 mmol/L Abnormal 135-145 [facility] Comment on above: Result Comment: Crit ical Result Verified by Repeat Analysis Critical Result S_NA of 114 Called to and read back by: TREMAINE LAND at: 12/19/2024 12:00:32 by:VANESSA Performed By: #### 2 [id number] #### [facility] [address] [place] [address] Urea nitrogen [Mass/Vol] 54 mg/dL High 5-21 [facility] Comment on above: Performed By: #### 2 406753 #### [facility] [address] [place] [address] Urea nitrogen/Creatinine [Mass ratio] 28 No Units High 10-20 [facility] Comment on above: Performed By: #### 2 [id number] #### [facility] [address] [place] [address] BOHBon 12-19-2024 Beta HB Qnt 1.12 mmol/L High 0.02-0.27 [facility] Comment on above: Performed By: #### 2 [id number] #### [facility] [address] [place] [address] CBC w/ Auto Diffon 5 Basophils/100 WBC (Bld) 0.8 % Normal 0.0-2.0 [facility] Comment on above: Performed By: #### 2 [id number] #### [facility] [address] [place] [address] Basophils/Leukocytes Auto (Bld) [Pure # fraction] 0.1 E9/L Normal 0.0-0.2 [facility] Comment on above: Performed By: #### 2 [id number] #### [facility] [address] [place] [address] Eosinophils (Bld) [#/Vol] 0.2 E9/L Normal 0.0-0.5 [facility] Comment on above: Performed By: #### 2 727806 #### [facility] [address] [place] [address] Eosinophils/100 WBC (Bld) 3.6 % Normal 0.0-8.0 [facility] Comment on above: Performed By: #### 2 [id number] #### [facility] [address] [place] [address] Erythrocyte distribution width (RBC) [Ratio] 13.4 % Normal 10.9-14.2 [facility] Comment on above: Performed By: #### 2 675005 #### [facility] [address] [place] [address] Hematocrit (Bld) [Volume fraction] 46.6 % Normal 37.7-49.0 [facility] Comment on above: Performed By: #### 2 [id number] #### [facility] [address] [place] [address] Hemoglobin (Bld) [Mass/Vol] 15.3 g/dL Normal 13.5-17.5 [facility] Comment on above: Performed By: #### 2 [id number] #### [facility] [address] [place] [address] Lymphocytes (Bld) [#/Vol] 1.6 E9/L Normal 1.0-4.0 [facility] Comment on above: Performed By: #### 2 [id number] #### [facility] [address] [place] [address] Lymphocytes/100 WBC (Bld) 24.8 % Normal 14.0-50.0 [facility] Comment on above: Performed By: #### 2 997054 #### [facility] [address] [place] [address] MCH (RBC) [Entitic mass] 31.0 pg Normal 27.0-34.0 [facility] Comment on above: Performed By: #### 2 924779 #### [facility] [address] [place] [address] MCHC (RBC) [Mass/Vol] 32.7 g/dL Normal 31.4-36.0 [facility] Comment on above: Performed By: #### 2 832240 #### [facility] [address] [place] [address] MCV (RBC) [Entitic vol] 94.8 fL Normal 80.0-100.0 [facility] Comment on above: Performed By: #### 2 [id number] #### [facility] [address] [place] [address] Monocytes (Bld) [#/Vol] 0.6 E9/L Normal 0.2-1.0 [facility] Comment on above: Performed By: #### 2 [id number] #### [facility] [address] [place] [address] Neutrophils (Bld) [#/Vol] 3.9 E9/L Normal 2.0-7.5 [facility] Comment on above: Performed By: #### 2 [id number] #### [facility] [address] [place] [address] Neutrophils/100 WBC (Bld) 61.6 % Normal 36.0-75.0 [facility] Comment on above: Performed By: #### 2 783054 #### [facility] [address] [place] [address] Platelet 219.0 E9/L Normal 150.0-500.0 [facility] Comment on above: Performed By: #### 2 [id number] #### [facility] [address] [place] [address] Platelet mean volume (Bld) [Entitic vol] 8.5 fL Normal 6.4-10.8 [facility] Comment on above: Performed By: #### 2 [id number] #### [facility] [address] [place] [address] RBC (Bld) [#/Vol] 4.9 E12/L Normal 4.3-5.9 [facility] Comment on above: Performed By: #### 2 [id number] #### [facility] [address] [place] [address] WBC corrected for nucl RBC Auto (Bld) [#/Vol] 6.4 E9/L Normal 4.0-11.0 [facility] Comment on above: Performed By: #### 2 [id number] #### [facility] [address] [place] [address] Capillary Glucose POCon 05-0 Glucose [Mass/Vol] mg/dL Abnormal 55-99 [facility] Comment on above: Result Comment: Thelma maxwell RN/ Performed By: #### 2 [id number] #### [facility] [address] [place] [address] ED Clinical Summaryon 2024 ED Clinical Summary ED Clinical Summary [address] [address] ED Clinical Summary Person Information Name: NICOLE LORA/[place] Age: 64 Years : 1960 Sex: Male Language: Montenegrin PCP: Mounika Brooke MD Marital Status: Phone: [phone] Visit Id: Visit Reason: Leg pain-swelling; Weakness [...] 12/19/2024 14:13:49 12/19/2024 14:13:49 12/19/2024 14:13:49 ADDRESS: [address] [place] [phone] PHYS DOC NOTES: MEDICAL INFORMATION: Prescriptions Given: New Medications [id number], [address] [place], [place] [id number], [phone] methocarbamol (Robaxin-750 oral tablet) 1 Tablets By [...] Refills: 4. Misc Prescription (Freestyle Sage 2 [place]) Use daily with sensor. Refills: 0. Misc Prescription (Freestyle Sage 2 Sensors) Apply one q 14 days. Refills: 3. Misc Prescription (Glucometer test strips) Test TID DX E11.40 on insulin. Refills: 11. Misc Prescription (Glucometer) Dispense 1 Glucometer. Refills: 0. Misc Prescription (Insulin Pen Lawrence 31g x 8 mm) Use up to 4 daily. Refills: 4. (more content not included)... Normal [facility] ED Patient Summaryon 025 ED Patient Summary ED Patient Summary [address] [address] Patient Discharge Instructions Person Information Name: NICOLE LORA Age: 64 Years Arrival Date: 12/19/2024 10:20:20 Discharge Diagnosis: Hyperglycemia; Muscle cramps Primary Care Physician: Mendy LYMAN, Mounika Lugo Provider Information Primary Provider: Corky Luo MD Advanced Certified Pedorthotist:Jesus Grijalva PA-C The exam and treatment you received in the Emergency Department were for an urgent problem and are not intended as complete care. It is important that you follow up with a doctor, nurse practitioner, or physician???s children's nursery assistant for ongoing care. If your symptoms become [...] Instructions: With: Address: When: [place] [address] Business (1) In 3 days 12/22/2024 In the event that this physician does not participate in your insurance network, please consult with your insurance company to find a nearby participating provider. Patient Education Materials: Hyperglycemia A MESSAGE TO ALL PATIENTS REGARDING OPIOIDS PRESCRIPTION OPIOIDS: WHAT YOU NEED TO KNOW Prescription opioids can be used to help relieve eibxntii-zg-vxxnde pain and are often prescribed following a [...] be struggling with addiction, tell your health account executive healthcare and ask for guidance o (more content not included)... Normal [facility] Extra Blueon 12-19-2024 Tube Collected Plasma Yes Invalid Interpretation Code [facility] Comment on above: Performed By: #### 1 [id number] #### [facility] [address] [place] [address] Hep Func Panelon 12-19-2024 Albumin [Mass/Vol] 3.4 g/dL Normal 3.3-5.0 [facility] Comment on above: Performed By: #### 2 118655 #### [facility] [address] [place] [address] Albumin/Globulin (S) [Mass conc ratio] 1.1 Normal 1.1-2.2 [facility] Comment on above: Performed By: #### 2 232366 #### [facility] [address] [place] [address] ALP [Catalytic activity/Vol] 208 Int._Unit/L High 21-98 [facility] Comment on above: Performed By: #### 2 [id number] #### [facility] [address] [place] [address] ALT No additional P-5'-P [Catalytic activity/Vol] 25 Int._Unit/L Normal 6-46 [facility] Comment on above: Performed By: #### 2 [id number] #### [facility] [address] [place] [address] AST [Catalytic activity/Vol] 26 Int._Unit/L Normal 5-43 [facility] Comment on above: Performed By: #### 2 643225 #### [facility] [address] [place] [address] Bilirubin [Mass/Vol] 0.9 mg/dL Normal 0.0-1.1 [facility] Comment on above: Performed By: #### 2 908917 #### [facility] [address] [place] [address] Bilirubin.direct [Mass/Vol] 0.1 mg/dL Normal 0.0-0.4 [facility] Comment on above: Performed By: #### 2 200254 #### [facility] [address] [place] [address] Bilirubin.indirect [Mass or moles/Vol] 0.8 mg/dL Normal 0.1-0.9 [facility] Comment on above: Performed By: #### 2 367245 #### [facility] [address] [place] [address] Globulin (S) [Mass/Vol] 3.1 g/dL Normal 1.4-4.0 [facility] Comment on above: Performed By: #### 2 908293 #### [facility] [address] [place] [address] Protein [Mass/Vol] 6.5 g/dL Normal 6.0-7.8 [facility] Comment on above: Performed By: #### 2 708033 #### [facility] [address] [place] [address] XR Chest Single Viewon 12-19 XR Chest [...] DO Transcribed by: KAT Technologist: Boris BARNEY [facility] eGFRon 12-19-2024 eGFR 38 mL/min/1.73 m2 Low >=59 [facility] Comment on above: Performed By: #### 1 [id number] #### [facility] [address] [place] [address] ED Note-Physicianon 12-17-19 ED Note-Physician ED Note-Physician [...] day(s), # 20 cap(s), Refills(s) 0, Pharmacy: [email or web address] #[id number], 183, cm, 12/02/24 12:47:0 (more content not included)... Normal [facility] Comment on above: Result Comment: Elec tronically Signed By: Paddy Betancourt PA-C\.br\Date and Time Signed: 12/02/24 15:27 EDT\.br\Electronically Co-Signed By: Nicole Myers DO\.br\Date and Time Co-Signed: 12/16/24 07:10 EDT BMPon 12-02-2024 Anion gap [Moles/Vol] 16 mmol/L Normal 6-16 [facility] Comment on above: Performed By: #### 2 483412 #### [facility] [address] [place] [address] Calcium [Mass/Vol] 9.0 mg/dL Normal 8.9-11.1 [facility] Comment on above: Performed By: #### 2 766391 #### [facility] [address] [place] [address] Chloride [Moles/Vol] 87 mmol/L Low 101-111 [facility] Comment on above: Performed By: #### 2 524040 #### [facility] [address] [place] [address] CO2 [Moles/Vol] 25 mmol/L Normal 21-31 [facility] Comment on above: Performed By: #### 2 856921 #### [facility] [address] [place] [address] Creatinine [Mass/Vol] 1.6 mg/dL High 0.5-1.3 [facility] Comment on above: Performed By: #### 2 220279 #### [facility] [address] [place] [address] Glucose [Mass/Vol] 751 mg/dL Abnormal 55-199 [facility] Comment on above: Result Comment: Crit ical Result Verified by Repeat Analysis Critical Result [id number] Called to and read back by: TREMAINE LAND at: 12/02/2024 13:48:34 by:WOODY Performed By: #### 2 [id number] #### [facility] [address] [place] [address] Potassium [Moles/Vol] 4.4 mmol/L Normal 3.5-5.3 [facility] Comment on above: Performed By: #### 2 389050 #### [facility] [address] [place] [address] Sodium [Moles/Vol] 124 mmol/L Low 135-145 [facility] Comment on above: Performed By: #### 2 091938 #### [facility] [address] [place] [address] Urea nitrogen [Mass/Vol] 40 mg/dL High 5-21 [facility] Comment on above: Performed By: #### 2 486451 #### [facility] [address] [place] [address] Urea nitrogen/Creatinine [Mass ratio] 25 No Units High 10-20 [facility] Comment on above: Performed By: #### 2 786299 #### [facility] [address] [place] [address] CBC w/ Auto Diffon 5 Basophils/100 WBC (Bld) 0.6 % Normal 0.0-2.0 [facility] Comment on above: Performed By: #### 2 701153 #### [facility] [address] [place] [address] Basophils/Leukocytes Auto (Bld) [Pure # fraction] 0.0 E9/L Normal 0.0-0.2 [facility] Comment on above: Performed By: #### 2 349729 #### [facility] [address] [place] [address] Eosinophils (Bld) [#/Vol] 0.2 E9/L Normal 0.0-0.5 [facility] Comment on above: Performed By: #### 2 274372 #### [facility] [address] [place] [address] Eosinophils/100 WBC (Bld) 2.8 % Normal 0.0-8.0 [facility] Comment on above: Performed By: #### 2 053490 #### [facility] [address] [place] [address] Erythrocyte distribution width (RBC) [Ratio] 13.4 % Normal 10.9-14.2 [facility] Comment on above: Performed By: #### 2 385594 #### [facility] [address] [place] [address] Hematocrit (Bld) [Volume fraction] 48.9 % Normal 37.7-49.0 [facility] Comment on above: Performed By: #### 2 373615 #### [facility] [address] [place] [address] Hemoglobin (Bld) [Mass/Vol] 16.6 g/dL Normal 13.5-17.5 [facility] Comment on above: Performed By: #### 2 762497 #### [facility] [address] [place] [address] Lymphocytes (Bld) [#/Vol] 1.2 E9/L Normal 1.0-4.0 [facility] Comment on above: Performed By: #### 2 603195 #### [facility] [address] [place] [address] [place] [address] Lymphocytes/100 WBC (Bld) 20.6 % Normal 14.0-50.0 [facility] Comment on above: Performed By: #### 2 214258 #### [facility] [address] [place] [address] MCH (RBC) [Entitic mass] 31.4 pg Normal 27.0-34.0 [facility] Comment on above: Performed By: #### 2 353639 #### [facility] [address] [place] [address] MCHC (RBC) [Mass/Vol] 33.9 g/dL Normal 31.4-36.0 [facility] Comment on above: Performed By: #### 2 409364 #### [facility] [address] [place] [address] MCV (RBC) [Entitic vol] 92.6 fL Normal 80.0-100.0 [facility] Comment on above: Performed By: #### 2 389929 #### [facility] [address] [place] [address] Monocytes (Bld) [#/Vol] 0.4 E9/L Normal 0.2-1.0 [facility] Comment on above: Performed By: #### 2 125184 #### [facility] [address] [place] [address] Neutrophils (Bld) [#/Vol] 4.1 E9/L Normal 2.0-7.5 [facility] Comment on above: Performed By: #### 2 579471 #### [facility] [address] [place] [address] Neutrophils/100 WBC (Bld) 69.1 % Normal 36.0-75.0 [facility] Comment on above: Performed By: #### 2 008997 #### [facility] [address] [place] [address] Platelet mean volume (Bld) [Entitic vol] 7.5 fL Normal 6.4-10.8 [facility] Comment on above: Performed By: #### 2 107839 #### [facility] [address] [place] [address] Platelets (Bld) [#/Vol] 268.0 E9/L Normal 150.0-500.0 [facility] Comment on above: Performed By: #### 2 989276 #### [facility] [address] [place] [address] RBC (Bld) [#/Vol] 5.3 E12/L Normal 4.3-5.9 [facility] Comment on above: Performed By: #### 2 074368 #### [facility] [address] [place] [address] WBC corrected for nucl RBC Auto (Bld) [#/Vol] 6.0 E9/L Normal 4.0-11.0 [facility] Comment on above: Performed By: #### 2 710486 #### [facility] [address] [place] [address] CHEMISTRYOrdered By: SYSTEM SYSTEM on 12-02-2024 Anion [...] 2024 ED Clinical Summary ED Clinical Summary [place] [id number] ED Clinical Summary Person Information Name: NICOLE LORA/[facility] Age: 64 Years : 1960 Sex: Male Language: Montenegrin PCP: Mounika Brooke MD Marital Status: Phone: [phone] Visit Id: Visit Reason: Nausea; Dehydration; PT [...] 12/02/2024 15:24:12 12/02/2024 15:24:12 12/02/2024 15:24:12 ADDRESS: [address] [place] [phone] PHYS DOC NOTES: MEDICAL INFORMATION: Prescriptions Given: New Medications [id number], [address] [place], [place] [id number], [phone] cefdinir (cefdinir 300 mg Cap) 1 Capsules By Mouth every 12 hours for 10 Days. Refills: 0. Medications to Continue Taking That Have Changed [facility] #[id number], [address] [place], [place] [id number], [phone] START: doxycycline (doxycycline hyclate 100 mg Cap) [...] (Freestyle Li (more content not included)... Normal [facility] ED Note-Nursingon 12-02-2024 ED Note-Nursing ED Note-Nursing pt. leaves AMA at this time. paper signed. Normal [facility] ED Patient Summaryon 025 ED Patient Summary ED Patient Summary [place] [id number] Patient Discharge Instructions Person Information Name: NICOLE LORA Age: 64 Years Arrival Date: 12/02/2024 12:35:03 Discharge Diagnosis: Bronchitis; Hyperglycemia; Left against medical advice Primary Care Physician: Mounika Brooke MD Provider Information Primary Provider: Nicole Myers DO Advanced Certified Pedorthotist:Paddy Betancourt PA-C. The exam and treatment you received in the Emergency Department were for an urgent problem and are not intended as complete care. It is important that you follow up with a doctor, nurse practitioner, or physician???s children's nursery assistant for ongoing care. If your symptoms become [...] When: Mounika Mendy [address] [place] [address] Business (1) In 3 days 12/05/2024 Comments: Call for diagnosis based follow up In the event that this physician does not participate in your insurance network, please consult with your insurance company to find a nearby participating provider. Patient Education Materials: Acute Bronchitis, Adult; Type 2 Diabetes Mellitus, Self-Care, Adult, Dsdd-vo-Qgbr; Hyperglycemia A MESSAGE TO ALL PATIENTS REGARDING OPIOIDS PRESCRIPTION OPIOIDS: WHAT YOU NEED TO KNOW Prescription opioids can be used to help relieve cpgokmgc-kq-hgnkst pain and are often prescribed following a [...] to cj (more content not included)... Normal [facility] Extra Blueon 12-02-2024 Tube Collected Plasma Yes Invalid Interpretation Code [facility] Comment on above: Performed By: #### 1 [id number] #### [facility] [address] [place] [address] HEMATOLOGYOrdered By: SYSTEM SYSTEM on 12-02-2024 Basophils/100 [...] DO Transcribed by: KAT Technologist: PORSHA Normal [facility] eGFRon 12-02-2024 eGFR 47 mL/min/1.73 m2 Low >=59 [facility] Comment on above: Performed By: #### 1 [id number] #### [facility] [address] [place] [address] Glucose (Bld) [Mass/Vol]on 0 09-04-2024 Glucose Blood, POC 406 mg/dL [facility] - Hematology and Cell countson 09-04-2024 HbA1c (Bld) [Mass fraction] 12.9 % [facility] No Panel Informationon 09-04 [facility] Left eye Ophthalmologic jemma tmenton 07-22-2024 [facility] Radiology Study observation (narrative) [facility] Optical coherence tomography study reporton 07-22-2024 [facility] Left Eye Quality was good. Scan locations included subfoveal, juxtafoveal, extrafoveal, temporal. Progression has been stable. Notes Proliferative diabetic retinopathy of left eye [facility] Radiology Study observation (narrative) [facility] Glucose (Bld) [Mass/Vol]Orde red By: Amanda Cesar on 07-15-2024 Glucose Blood, POC 243 mg/dL [facility] ED Clinical Summaryon 2023 ED Clinical Summary ED Clinical Summary [address] [address] ED Clinical Summary Person Information Name: NICOLE LORA/[place] Age: 64 Years : 1960 Sex: Male Language: Montenegrin PCP: Mounika Brooke MD Marital Status: Phone: [phone] Visit Id: Visit Reason: Arm pain-swelling; RIGHT [...] 07/09/2024 16:21:24 07/09/2024 16:21:24 07/09/2024 16:21:24 ADDRESS: [address] [place] [phone] PHYS DOC NOTES: MEDICAL INFORMATION: Prescriptions Given: New Medications [email or web address] #[id number], [address] [place], [place] [id number], [phone] acetaminophen-oxycodo ne (Percocet 5 mg-325 mg oral [...] Refills: 4. Misc Prescription (Freestyle Sage 2 [place]) Use daily with sensor. Refills: 0. Misc Prescription (Freestyle Sage 2 Sensors) Apply one q 14 days. Refills: 3. Misc Prescription (Glucometer test strips) Test TID DX E11.40 on insulin. Refills: 11. Misc Prescription (Glucometer) Dispense 1 Glucometer. Refills: 0. Misc Prescription (Insulin Pen Lawrence 31g x 8 mm) Use up to [...] hours a (more content not included)... Normal [facility] ED Note-Physicianon 07-09-20 ED Note-Physician ED [...] for 3 day(s), 10 tab(s), Refill(s) 0, [email or web address] #[id number], 183, cm, 07/09/24 14:44:00 EST, Height/Length Dosing, [...] Ishmael In 3 days 07/12/2024 EST [address] [place], [place] [address] Nitro (1) Additional Instructions: Patient Education Tendinitis Attestation [...] made to ensure accuracy, however, inadvertently computerized windows software engineer mistakes may be present. Appropriate healthcare PPE [...] disorder, severe (more content not included)... Normal [facility] Comment on above: Result Comment: Elec tronically Signed By: Jesus Grijalva PA-C\.br\Date and Time Signed: 07/09/24 16:16 EST\.br\Electronically Co-Signed By: Nicole Myers DO\.br\Date and Time Co-Signed: 07/09/24 18:49 EST ED Patient Summaryon 024 ED Patient Summary ED Patient Summary [address] [address] Patient Discharge Instructions Person Information Name: NICOLE LORA Age: 64 Years Arrival Date: 07/09/2024 14:35:34 Discharge Diagnosis: Left shoulder pain; Tendinitis Primary Care Physician: Mounika Brooke MD Provider Information Primary Provider: Nicole Myers DO Advanced Certified Pedorthotist:Jesus Grijalva PA-C The exam and treatment you received in the Emergency Department were for an urgent problem and are not intended as complete care. It is important that you follow up with a doctor, nurse practitioner, or physician???s children's nursery assistant for ongoing care. If your symptoms become worse or you do not improve as expected and you are unable to reach your usual health care provider, you should return to the Emergency Department. We are available 24 hours a day. NICOLE LORA has been given the following list of patient education materials, prescriptions and follow-up instructions: Follow-up Instructions: With: Address: When: Zak Quiñones [address] [place], [place] [id number] Business (1) In 3 days 07/12/2024 In the event that this physician does not participate in your insurance network, please consult with your insurance company to find a nearby participating provider. Patient Education Materials: Marixatis A MESSAGE TO ALL PATIENTS REGARDING OPIOIDS PRESCRIPTION OPIOIDS: WHAT YOU NEED TO KNOW Prescription opioids can be used to help relieve brjpvodg-uw-pxwxdi pain and are often prescribed following a [...] be struggling with addiction, tell your health account executive healthcare and ask for ernst (more content not included)... Normal [facility] XR Shoulder Complete Righton 07-09-2024 XR [...] mGy = na DAP = na Normal [facility] ED Clinical Summaryon 2023 ED Clinical Summary ED Clinical Summary [place] [id number] ED Clinical Summary Person Information Name: NICOLE LORA Aren/[facility] Age: 64 Years : 1960 Sex: Male Language: Montenegrin PCP: Mounika Brooke MD Marital Status: Phone: [phone] Visit Id: Visit Reason: Rib/trunk pain-swelling; RIB [...] 06/23/2024 14:01:17 06/23/2024 14:01:17 06/23/2024 14:01:17 ADDRESS: [address] [place] [phone] PHYS DOC NOTES: MEDICAL INFORMATION: Prescriptions Given: New Medications [facility] #[id number], [address] [place], [place] [id number], [phone] acetaminophen-oxycodo ne (acetaminophen-oxycod one 325 mg-5 mg Tab) 1 Tablets By Mouth every 6 hours as needed for pain for 3 Days. Refills: 0. Medications to Continue Taking That Have Changed [facility] #[id number], [address] [place], [place] [id number], [phone] START: doxycycline (doxycycline hyclate 100 mg Cap) [...] Refills: 4. Misc Prescription (Freestyle Sage 2 [place]) Use daily with sensor. Refills: 0. Misc Prescription (Freestyle Sage 2 Sensors) Apply one q 14 days. Refills: 3. Misc Prescription (Glucometer test strips) Test TID DX E11.40 on insulin. Refills: 11. Misc Prescription (Glucometer) Dispense 1 Glucometer. Refills: 0. Misc Prescription (Insulin Pen Lawrence 31g x 8 mm) Use up to [...] INFORMATION: Inst (more content not included)... Normal [facility] ED Note-Physicianon 06-23-20 ED Note-Physician ED [...] for 3 day(s), 12 tab(s), Refill(s) 0, [facility] #[id number], 183, cm, 06/23/24 13:45:00 EST, Height/Length Dosing, 143, kg, 06/23/24 13:45:00 EST, Weight Dosing doxycycline, 100 mg = 1 cap(s), Oral, BID, # 20 cap(s), Refills(s) 0, Pharmacy: [facility] #[id number], 183, cm, 06/23/24 13:45:00 EST, Height/Length Dosing, [...] In 3 days 06/26/2024 EST [address] [place] [address]- Business (1) Additional Instructions: Call Dr for diagnosis based follow up Patient Education Community-Acquired Pneumonia, Adult, Bsaz-my-Fuya Rib Contusion Attestation Patient seen and evaluated by the physician children's nursery assistant. Attending physician was present in the emergency department and supervised care. This visit was performed by both the physician and an APC. I performed all aspects of the MDM as documented. This report was transcribed using voice recognition software. Every effort was made to ensure accuracy, however, inadvertently computerized windows software engineer mistakes may be present. Appropriate healthcare PPE was used in evaluating this patient. The patient was placed in a mask. The healthcare provider was wearing mask, gloves, and utilizing proper hand hygiene. All equipment was properly cleansed. I performed a substantive part of the MDM during (more content not included)... Normal [facility] Comment on above: Result Comment: Elec tronically Signed By: Paddy Betancourt PA-C\.br\Date and Time Signed: 06/23/24 14:07 EST\.br\Electronically Co-Signed By: Alejandro Silva M.D.\.br\Date and Time Co-Signed: 06/23/24 14:26 EST ED Patient Summaryon 024 ED Patient Summary ED Patient Summary [address] [address] Patient Discharge Instructions Person Information Name: NICOLE LORA Age: 64 Years Arrival Date: 06/23/2024 13:36:38 Discharge Diagnosis: Contusion of rib on left side; Pneumonia Primary Care Physician: Mounika Brooke MD Provider Information Primary Provider: Alejandro Silva M.D. Advanced Certified Pedorthotist:None The exam and treatment you received in the Emergency Department were for an urgent problem and are not intended as complete care. It is important that you follow up with a doctor, nurse practitioner, or physician???s children's nursery assistant for ongoing care. If your symptoms become [...] Address: When: Mounika Bro[address] [place], [place] [id number] [facility] (1) In 3 days 06/26/2024 Comments: Call Dr for diagnosis based follow up In the event that this physician does not participate in your insurance network, please consult with your insurance company to find a nearby participating provider. Patient Education Materials: Community-Acquired Pneumonia, Adult, Neqi-gd-Kqpi; Rib Contusion A MESSAGE TO ALL PATIENTS REGARDING OPIOIDS PRESCRIPTION OPIOIDS: WHAT YOU NEED TO KNOW Prescription opioids can be used to help relieve ffyuwfbc-db-dohvoi pain and are often prescribed following a [...] ??? If (more content not included)... Normal [facility] HEMOGLOBIN A1con 06-22-2024 HbA1c (Bld) [Mass [...] children. Performed By: #### 4 96 #### [facility] [address] [place] [address] Lens Inserter: Anson Henley MD HbA1c (Bld) [Mass fraction]o n 06-22-2024 Interpretation and review of laboratory results Abnormal [facility] FASTING:UNKNOWN FASTING: UNKNOWN [facility] Organization Information Site ID: QPT Name: [facility] Address: [facility] [address], [address] [place] [id number] Director: Anson Henley MD [facility] Laboratory - Hematology and Cell countson 06-22-2024 HbA1c (Bld) [Mass fraction] [facility] Comment on above: For someone without known [...] mGy = na DAP = na Normal [facility] Left eye Ophthalmologic jemma tmenton 05-22-2024 [facility] Radiology Study observation (narrative) [facility] Optical coherence tomography study reporton 05-22-2024 [facility] Right Eye Quality was good. Left Eye Quality was good. Scan locations included subfoveal, juxtafoveal, extrafoveal. Progression has been stable. Findings include abnormal foveal contour, cystoid macular edema. Notes Neovascularization of the disc (NVD) OS [facility] Radiology Study observation (narrative) [facility] Left eye Ophthalmologic jemma tmenton 04-23-2024 [facility] Radiology Study observation (narrative) [facility] Optical coherence tomography study reporton 04-15-2024 Right Eye Quality was good. Scan locations included subfoveal, juxtafoveal, extrafoveal. Progression has no prior data. Findings include abnormal foveal contour. Left Eye Quality was good. Scan locations included subfoveal, juxtafoveal, extrafoveal. Progression has no prior data. Findings include abnormal foveal contour, cystoid macular edema. Notes Pdr os Mod bgdr od [facility] Radiology Study observation (narrative) [facility] BMPon 03-11-2024 Anion gap [Moles/Vol] 13 mmol/L Normal 6-16 [facility] Comment on above: Performed By: #### 2 [id number] #### [facility] [address] [place] [address] Calcium [Mass/Vol] 8.6 mg/dL Low 8.9-11.1 [facility] Comment on above: Performed By: #### 2 [id number] #### [facility] [address] [place] [address] Chloride [Moles/Vol] 100 mmol/L Low 101-111 [facility] Comment on above: Performed By: #### 2 [id number] #### [facility] [address] [place] [address] CO2 [Moles/Vol] 26 mmol/L Normal 21-31 [facility] Comment on above: Performed By: #### 2 [id number] #### [facility] [address] [place] [address] Creatinine [Mass/Vol] 1.5 mg/dL High 0.5-1.3 [facility] Comment on above: Performed By: #### 2 [id number] #### [facility] [address] [place] [address] Glucose [Mass/Vol] 330 mg/dL High 55-199 [facility] Comment on above: Performed By: #### 2 [id number] #### [facility] [address] [place] [address] Potassium [Moles/Vol] 4.8 mmol/L Normal 3.5-5.3 [facility] Comment on above: Performed By: #### 2 [id number] #### [facility] [address] [place] [address] Sodium [Moles/Vol] 134 mmol/L Low 135-145 [facility] Comment on above: Performed By: #### 2 [id number] #### [facility] [address] [place] [address] Urea nitrogen [Mass/Vol] 29 mg/dL High 5-21 [facility] Comment on above: Performed By: #### 2 [id number] #### [facility] [address] [place] [address] Urea nitrogen/Creatinine [Mass ratio] 19 No Units Normal 10-20 [facility] Comment on above: Performed By: #### 2 [id number] #### [facility] [address] [place] [address] CHEMISTRYOrdered By: SYSTEM SYSTEM on 03-11-2024 Anion [...] 03-11-2024 eGFR 51 mL/min/1.73 m2 Low >=59 [facility] Comment on above: Order Comment: Order added by Discern Expert. Performed By: #### 1 [id number] #### [facility] [address] [place] [address] Ambulatory Visit Summaryon 0 02-28-2024 Ambulatory Visit Summary Normal [facility] Patient Educationon 02-28-20 Patient Education Normal [facility] Urology Office/Clinic Noteon 02-28-2024 Urology Office/Clinic Note Normal [facility] Comment on above: Result Comment: Elec tronically Signed By: Taz THOMAS MD\.br\Date and Time Signed: 02/28/24 08:10 EDT\.br\Electronically Co-Signed By: Basia Claire.br\Date and Time Co-Signed: 02/28/24 08:05 EDT Ambulatory Visit Summaryon 0 02-15-2024 Ambulatory Visit Summary Normal [facility] Patient Educationon 02-11-20 Patient Education Normal [facility] Urology Office/Clinic Noteon 02-11-2024 Urology Office/Clinic Note Normal [facility] Comment on above: Result Comment: Elec tronically Signed By: BRYAN Bahena APRN, [place] X\.br\Date and Time Signed: 02/11/24 23:10 EDT Ambulatory Visit Summaryon 0 02-09-2024 Ambulatory Visit Summary Normal [address], [address] [place] [address]- \.br\ Monday 10:45 AM EDT \.br\ With: Sukh Harrington DPM\.br\ Where: [facility]\.br\ Medications\.br\ What How Much When Why Instructions\.br\ Unchanged acetaminophen-hyd rocodone ([place] 325 mg-5 mg oral tablet) See instructions [...] day\.br\ Unchanged Misc Prescription (Freestyle Sage 2 [place]) See instructions Use daily with sensor \.br\ Unchanged Misc Prescription (Freestyle Sage 2 Sensors) See instructions Apply one q 14 days \.br\ Unchanged Misc Prescription (Glucometer test strips) See instructions Test TID DX E11.40 on insulin \.br\ Unchanged Misc Prescription (Glucometer) See instructions Diabetes mellitus with neuropathy Dispense 1 Glucometer \.br\ Unchanged Misc Prescription (Insulin Pen [place] 31g x 8 mm) See instructions Use [...] for choosing us for your care.\.br\ \.br\ [facility] Consent for Procedure/Surger yon 02-05-2024 Consent for Procedure/Surgery [id number]#1 .00TIFF Normal [facility] Consent for Treatmenton 01-19 Consent for Treatment [id number]#1 .00TIFF Normal [facility] Inpatient Patient Summaryon 02-05-2024 Inpatient Patient Summary Normal [facility] IntraOperative Documentson 0 02-05-2024 IntraOperative Documents [id number]#1 .00TIFF [facility] Main [place] Intraoperative Recor don 02-05-2024 Main OR Intraoperative Record Normal [facility] Main OR Preoperative Recordo n 02-05-2024 Main OR Preoperative Record Normal [facility] Operative Reporton Operative Report Normal [facility] Comment on above: Result Comment: Elec tronically Signed By: MARTHA LYMAN, Taz Nunez.br\Date and Time Signed: 02/05/24 13:27 EDT Outpatient Surgery Discharge Instructionon 02-05-2024 Outpatient Surgery Discharge Instruction [id number]#1 .00TIFF [facility] Outpatient Surgery Discharge Instruction [facility] Patient Educationon 02-05-20 Patient Education Normal [facility] Insurance Correspondenceon 0 02-01-2024 Insurance Correspondence [id number]# 1.00TIFF [facility] Multi-Wound Charton 02-01-20 Multi-Wound Chart [id number]# 1.00TIFF [facility] Nursing Note - Woundon 01-31 Nursing Note - Wound 159.140.124. [id number]# 1.00TIFF [facility] Consent for Treatmenton 01-19 Consent for Treatment [id number]#1 .00TIFF [facility] Nursing Assessment - Woundon 01-31-2024 Nursing Assessment - Wound [id number]# 1.00TIFF [facility] Physician Orderon 01-31-2024 Physician Order [id number]# 1.00TIFF [facility] Prescriptions/Work Noteson 0 01-31-2024 Prescriptions/Work Notes [id number]# 1.00TIFF [facility] Procedure - Woundon 01-31-20 Procedure - Wound [id number] 6 [id number]# 1.00TIFF [facility] Progress Note - Woundon 01-19 Progress Note - Wound [id number]# 1.00TIFF [facility] Insurance Correspondenceon 0 01-26-2024 Insurance Correspondence [id number]#1 .00TIFF [facility] Nursing Note - Woundon 01-23 Nursing Note - Wound [id number]. 06 [id number]# 1.00TIFF [facility] Physician Orderon 01-24-2024 Physician Order [id number]# 1.00TIFF [facility] Procedure - Woundon 01-24-20 Procedure - Wound [id number] 6 [id number]# 1.00TIFF [facility] Progress Note - Woundon Progress Note - Wound [id number]# 1.00TIFF [facility] Consent for Procedure/Surger yon 01-23-2024 Consent for Procedure/Surgery [id number]# 1.00TIFF [facility] Consent for Procedure/Surgery [id number]# 1.00TIFF [facility] Consent for Treatmenton Consent for Treatment [id number]#1 .00TIFF [facility] Multi-Wound Charton 01-23-20 Multi-Wound Chart [id number] 6 [id number]# 1.00TIFF [facility] Nursing Assessment - Woundon 01-23-2024 Nursing Assessment - Wound [id number]# 1.00TIFF [facility] ED Note-Physicianon 01-16-20 ED Note-Physician [facility] Comment on above: Result Comment: Elec tronically Signed By: Kaley Phan PA-C\.br\Date and Time Signed: 01/15/24 17:05 EDT\.br\Electronically Co-Signed By: Nicole Myers DO\.br\Date and Time Co-Signed: 01/16/24 09:03 EDT Consent for Treatmenton 12-20 Consent for Treatment [id number]#1 .00TIFF [facility] Discharge Instructionson Discharge Instructions [id number]#1 .00TIFF [facility] ED Clinical Summaryon 2023 ED Clinical Summary Normal [facility] ED Patient Education Noteon 01-15-2024 ED Patient Education Note [facility] ED Patient Summaryon 024 ED Patient Summary [facility] Ambulatory Visit Summaryon 0 01-12-2024 Ambulatory Visit Summary [facility] Consent for Procedure/Surger yon 01-02-2024 Consent for Procedure/Surgery [id number]# 1.00TIFF [facility] Consent for Treatmenton 12-19 Consent for Treatment [id number]#1 .00TIFF [facility] Multi-Wound Charton 01-02-20 Multi-Wound Chart [id number] 5 [id number]# 1.00TIFF [facility] Nursing Assessment - Woundon 01-02-2024 Nursing Assessment - Wound 159.140.124. [id number]# 1.00TIFF [facility] Nursing Note - Woundon 01-01 Nursing Note - Wound 159.140.124. 05 [id number]# 1.00TIFF [facility] Physician Orderon 01-02-2024 Physician Order [id number] 5 [id number]# 1.00TIFF [facility] Procedure - Woundon 01-02-20 Procedure - Wound 159.140.124. 5 [id number]# 1.00TIFF [facility] Progress Note - Woundon 12-19 Progress Note - Wound 159.140.124. [id number]# 1.00TIFF [facility] Consent for Procedure/Surger yon 12-26-2023 Consent for Procedure/Surgery [id number]#1 .00TIFF [facility] Consent for Procedure/Surgery [id number]#1 .00TIFF [facility] Consent for Treatmenton Consent for Treatment [id number]#1 .00TIFF [facility] Multi-Wound Charton 12-26-19 Multi-Wound Chart [id number] 5 [id number]# 1.00TIFF [facility] Nursing Assessment - Woundon 12-26-2023 Nursing Assessment - Wound [id number]. [id number]# 1.00TIFF [facility] Nursing Note - Woundon 12-25 Nursing Note - Wound 159.140.124. 05 [id number]# 1.00TIFF [facility] Physician Orderon 12-26-2023 Physician Order [id number]. 5 [id number]# 1.00TIFF [facility] Procedure - Woundon 12-26-19 24 Procedure - Wound [id number]. 5 [id number]# 1.00TIFF [facility] Progress Note - Woundon Progress Note - Wound 159.140.124.. [id number]# 1.00TIFF [facility] Nursing Note - Woundon 12-19 Nursing Note - Wound 159.140.124. 05 [id number]# 1.00TIFF [facility] Physician Orderon 12-20-2023 Physician Order [id number]. 5 [id number]# 1.00TIFF [facility] Procedure - Woundon 12-20-19 Procedure - Wound 159.140.124. 5 [id number]# 1.00TIFF [facility] Progress Note - Woundon Progress Note - Wound 159.140.124.. [id number]# 1.00TIFF [facility] Consent for Procedure/Surger yon 12-19-2023 Consent for Procedure/Surgery [id number]# 1.00TIFF [facility] Consent for Treatmenton 11-21 Consent for Treatment [id number]#1 .00TIFF [facility] Multi-Wound Charton 12-19-19 Multi-Wound Chart [id number] 4 [id number]# 1.00TIFF [facility] Nursing Assessment - Woundon 12-19-2023 Nursing Assessment - Wound [id number]. [id number]# 1.00TIFF [facility] Ambulatory Visit Summaryon 0 4-26-2024 Ambulatory Visit Summary [facility] Consent for Procedure/Surger yon 12-12-2023 Consent for Procedure/Surgery [id number]# 1.00TIFF [facility] Consent for Treatmenton 11-20 Consent for Treatment [id number]#1 .00TIFF [facility] Multi-Wound Charton 12-12-19 Multi-Wound Chart [id number] 4 [id number]# 1.00TIFF [facility] Nursing Assessment - Woundon 12-12-2023 Nursing Assessment - Wound [id number]# 1.00TIFF [facility] Nursing Note - Woundon 12-11 Nursing Note - Wound [id number] 04 [id number]# 1.00TIFF [facility] Physician Orderon 12-12-2023 Physician Order [id number]# 1.00TIFF [facility] Procedure - Woundon 12-12-19 Procedure - Wound [id number] 4 [id number]# 1.00TIFF [facility] Progress Note - Woundon 11-20 Progress Note - Wound [id number]# 1.00TIFF [facility] Consenton 11-22-2023 Consent [id number] 0 [id number]#1. 00TIFF [facility] Consent for Procedure/Surger yon 11-20-2023 Consent for Procedure/Surgery [id number]#1 .00TIFF [facility] Consent for Treatmenton Consent for Treatment [id number]#1 .00TIFF Normal [facility] IntraOperative Documentson 0 11-20-2023 IntraOperative Documents [id number]#1 .00TIFF Normal [facility] IntraOperative Documents [id number]#1 .00TIFF Normal [facility] Main OR Intraoperative Recor don 11-20-2023 Main OR Intraoperative Record Normal [facility] Main OR Preoperative Recordo n 11-20-2023 Main OR Preoperative Record Normal [facility] Operative Reporton Operative Report Normal [facility] Comment on above: Result Comment: Elec tronically Signed By: Taz THOMAS MD\.br\Date and Time Signed: 11/20/23 13:26 EDT Progress Note-Physicianon Progress Note-Physician Normal [facility] Comment on above: Result Comment: Elec tronically Signed By: Taz THOMAS MD\.br\Date and Time Signed: 11/20/23 13:30 EDT C Blood Charcoalon Blood Culture Charcoal Normal [facility] Comment on above: Performed By: #### 1 [id number] ####[facility] [address] [place] [address] Blood Culture Charcoal Normal [facility] Comment on above: Performed By: #### 1 [id number] ####[facility] [address] [place] [address] Basophils Auto (Bld) [#/Vol] Ordered By: Manish Fu on 11-17-2023 Basophils (Bld) [#/Vol] 0.0 10*3/uL 0.0-0.2 [facility] Basophils/100 WBC Auto (Bld) Ordered By: Manish Fu on 11-17-2023 Basophils/100 WBC (Bld) 0.7 % . [facility] Calcium [Mass/volume] in Ser um or PlasmaOrdered By: Manish Fu on 11-17-2023 Calcium [Mass/Vol] 9.3 mg/dL 8.6-10.3 [facility] Carbon dioxide, total [Moles /volume] in Serum or PlasmaOrdered By: Manish Fu on 11-17-2023 CO2 [Moles/Vol] 41.4 mmol/L 21.0-31.0 [facility] Chloride [Moles/volume] in S raymond or PlasmaOrdered By: Manish uF on 11-17-2023 Chloride [Moles/Vol] 102 mmol/L 98-107 [facility] Creatinine [Mass/volume] in Serum or PlasmaOrdered By: Manish Fu on 11-17-2023 Creatinine [Mass/Vol] 1.47 mg/dL 0.70-1.30 [facility] Eosinophils Auto (Bld) [#/Vo l]Ordered By: Manish Fu on 11-17-2023 Eosinophils (Bld) [#/Vol] 0.3 10*3/uL 0.0-0.45 [facility] Eosinophils/100 WBC Auto (Bl d)Ordered By: Manish Fu on 11-17-2023 Eosinophils/100 WBC (Bld) 5.6 % . [facility] Erythrocyte distribution wid th Auto (RBC) [Ratio]Ordered By: Manish Fu on 11-17-2023 Erythrocyte distribution width (RBC) [Ratio] 18.4 % 12.0-14.8 [facility] Glucose Glucometer (BldC) [M ass/Vol]Ordered By: Manish Fu on 11-17-2023 Glucose [Mass/Vol] 165 mg/dL [facility] Comment on above: Random Glucose Refer ence Range is dependent on time and content of last meal. Glucose of more than 200 mg/dL in a nonstressed, ambulatory subject supports the diagnosis of Diabetes Mellitus. Glucose [Mass/volume] in Ser um or PlasmaOrdered By: Manish Fu on 11-17-2023 Glucose [Mass/Vol] 114 mg/dL 70-100 [facility] Comment on above: ADA recommended refe rence rangeRandom Glucose Reference Range is dependent on time and content of last meal. Glucose of more than 200 mg/dL in a nonstressed, ambulatory subject supports the diagnosis of Diabetes Mellitus. Hematocrit Auto (Bld) [Volum e fraction]Ordered By: Manish Fu on 11-17-2023 Hematocrit (Bld) [Volume fraction] 39.5 % 38.8-50.0 [facility] Hemoglobin [Mass/volume] in BloodOrdered By: Manish Fu on 11-17-2023 Hemoglobin (Bld) [Mass/Vol] 12.3 g/dL 13.0-17.0 [facility] Leukocytes [#/volume] correc maria guadalupe for nucleated erythrocytes in Blood by Automated counOrdered By: Manish Fu on 11-17-2023 WBC corrected for nucl RBC Auto (Bld) [#/Vol] 6.0 10*3/uL 4.1-10.5 [facility] Lymphocytes Auto (Bld) [#/Vo l]Ordered By: Manish Fu on 11-17-2023 Lymphocytes (Bld) [#/Vol] 1.3 10*3/uL 1.00-4.8 [facility] Lymphocytes/100 WBC Auto (Bl d)Ordered By: Manish Fu on 11-17-2023 Lymphocytes/100 WBC (Bld) 21.7 % . [facility] MCH Auto (RBC) [Entitic mass ]Ordered By: Manish Fu on 11-17-2023 MCH (RBC) [Entitic mass] 26.0 pg 27.5-35.2 [facility] MCHC Auto (RBC) [Mass/Vol]Or dered By: Manish Fu on 11-17-2023 MCHC (RBC) [Mass/Vol] 31.2 g/dL 32.5-35.6 [facility] MCV Auto (RBC) [Entitic vol] Ordered By: Manish Fu on 11-17-2023 MCV (RBC) [Entitic vol] 83.4 fL 83.5-101 [facility] Monocytes Auto (Bld) [#/Vol] Ordered By: Manish Fu on 11-17-2023 Monocytes (Bld) [#/Vol] 0.6 10*3/uL 0.0-0.8 [facility] Monocytes/100 WBC Auto (Bld) Ordered By: Manish Fu on 11-17-2023 Monocytes/100 WBC (Bld) 10.4 % . [facility] Neutrophils Auto (Bld) [#/Vo l]Ordered By: Manish Fu on 11-17-2023 Neutrophils (Bld) [#/Vol] 3.7 10*3/uL 1.8-7.7 [facility] Neutrophils/100 WBC Auto (Bl d)Ordered By: Manish Fu on 11-17-2023 Neutrophils/100 WBC (Bld) 61.6 % . [facility] No Panel InformationOrdered By: Manish Fu on 11-17-2023 Estimated GFR (CKD-EPI) 52.934 mL/Min [facility] Creatinine Clearance (Chem 70.70 [facility] Nucleated erythrocytes [Pres ence] in Blood by Automated countOrdered By: Manish Fu on 11-17-2023 Nucleated RBC Auto Ql (Bld) 0.1 /100{WBC} 0-0.5 [facility] Platelet mean volume Auto (B ld) [Entitic vol]Ordered By: Manish Fu on 11-17-2023 Platelet mean volume (Bld) [Entitic vol] 6.8 fL 6.6-10.1 [facility] Platelets Auto (Bld) [#/Vol] Ordered By: Manish Fu on 11-17-2023 Platelets (Bld) [#/Vol] 248 10*3/uL 150-450 [facility] Potassium [Moles/volume] in Serum or PlasmaOrdered By: Manish Fu on 11-17-2023 Potassium [Moles/Vol] 4.5 mmol/L 3.5-5.1 [facility] RBC Auto (Bld) [#/Vol]Ordere d By: Manish Fu on 11-17-2023 RBC (Bld) [#/Vol] 4.73 10*6/uL 3.90-5.60 [facility] Serum or plasma anion gap de terminationOrdered By: Manish Fu on 11-17-2023 Anion gap [Moles/Vol] 10.1 mmol/L 6.0-15.0 [facility] Sodium [Moles/volume] in Ser um or PlasmaOrdered By: Manish Fu on 11-17-2023 Sodium [Moles/Vol] 149 mmol/L 136-145 [facility] Urea nitrogen [Mass/volume] in Serum or PlasmaOrdered By: Manish Fu on 11-17-2023 Urea nitrogen [Mass/Vol] 44 mg/dL 7-25 [facility] WBC Auto (Bld) [#/Vol]Ordere d By: aMnish Fu on 11-17-2023 WBC (Bld) [#/Vol] 6.0 10*3/uL 4.1-10.5 [facility] Admission Noteon 11-16-2023 Admission Note [id number]#1 .00TIFF Normal [facility] No Panel InformationOrdered By: Manish Fu on 11-16-2023 Bedside Glucose Comment Glu2: cleaned meter [facility] Admission Noteon 11-15-2023 Admission Note [id number]#1 .00TIFF Normal [facility] Laboratory - Chemistry and C hemistry - challengeOrdered By: Manish Fu on 11-15-2023 CO2 [Moles/Vol] 34.8 mmol/L 23.0-27.0 [facility] HCO3 (Bld) [Moles/Vol] 32.6 mmol/L 23.0-29.0 [facility] Magnesium [Mass/volume] in S raymond or PlasmaOrdered By: Manish Fu on 11-15-2023 Magnesium [Mass/Vol] 2.3 mg/dL 1.9-2.7 [facility] No Panel InformationOrdered By: Manish Fu on 11-15-2023 Arterial Blood Base Excess 3.8 mmol/L -3.0-3.0 [facility] Arterial Blood Oxygen Content 8.0 mmol/L 6.6-9.7 [facility] Arterial Blood Oxygen Saturation 94.1 % 95.0-100.0 [facility] Arterial Blood Partial Pressure CO2 70.1 mm[Hg] 35.0-45.0 [facility] Arterial Blood Partial Pressure O2 73.0 mm[Hg] 80.0-100.0 [facility] Arterial Blood pH 7.29 7.35-7.45 [facility] Blood Gas Critical Value See comment [facility] Comment on above: Critical Value dickerson d on: 11/15/2023 at 12:53 Blood Gas Sample Site Right radial [facility] FiO2 44 % [facility] Oxygen Delivery Device Nasal cannula [facility] Alanine aminotransferase [En zymatic activity/volume] in Serum or PlasmaOrdered By: Manish Fu on 11-14-2023 ALT [Catalytic activity/Vol] 14 U/L 7-52 [facility] Albumin [Mass/volume] in Ser um or Plasma by Bromocresol green (BCG) dye binding methoOrdered By: Manish Fu on 11-14-2023 Albumin BCG dye [Mass/Vol] 3.2 g/dL 3.5-5.7 [facility] Alkaline phosphatase [Enzyma tic activity/volume] in Serum or PlasmaOrdered By: Manish Fu on 11-14-2023 ALP [Catalytic activity/Vol] 92 U/L 34-104 [facility] Aspartate aminotransferase [ Enzymatic activity/volume] in Serum or PlasmaOrdered By: Manish Fu on 11-14-2023 AST [Catalytic activity/Vol] 10 U/L 13-39 [facility] Bilirubin.total [Mass/volume ] in Serum or PlasmaOrdered By: Manish Fu on 11-14-2023 Bilirubin [Mass/Vol] 0.6 mg/dL 0.3-1.0 [facility] Globulin Calc (S) [Mass/Vol] Ordered By: Manish Fu on 11-14-2023 Globulin (S) [Mass/Vol] 2.8 g/dL [facility] Protein [Mass/volume] in Ser um or PlasmaOrdered By: Manish Fu on 11-14-2023 Protein [Mass/Vol] 6.0 g/dL 6.4-8.9 [facility] Serum or plasma albumin/glob ulin mass ratioOrdered By: Manish Fu on 11-14-2023 Albumin/Globulin [Mass ratio] 1.1 {ratio} [facility] C Urineon 11-13-2023 Bacteria identified Cx Nom (U) Normal [facility] Comment on above: Performed By: #### 2 [id number], [id number] ####[facility] [address] [place] [address] Automated erythrocytes count in urine sediment (number/area)Ordered By: Tera Nevarez on 11-11-2023 RBC Auto (Urine sed) [#/Area] Innumerable [HPF] 0-4 [facility] Automated leukocytes count i n urine sediment (number/area)Ordered By: Tera Nevarez on 11-11-2023 WBC Auto (Urine sed) [#/Area] 50-100 [HPF] 0-4 [facility] Automated urine hyaline cast s count (number/volume)Ordered By: Tera Nevarez on 11-11-2023 Hyaline casts Auto (U) [#/Vol] 0-8 [LPF] 0-1 [facility] BMPon 11-11-2023 Anion gap [Moles/Vol] 18 mmol/L High 6-16 [facility] Comment on above: Performed By: #### 2 371790, 2966152, 33257341, 95195318, 50252727, 83251915, 5891536 ####[facility] [address] [place] [address] Calcium [Mass/Vol] 8.8 mg/dL Low 8.9-11.1 [facility] Comment on above: Performed By: #### 2 680295, 9731208, 15870381, 23543907, 38498267, 19828800, 2948539 ####[facility] [address] [place] [address] Chloride [Moles/Vol] 95 mmol/L Low 101-111 [facility] Comment on above: Performed By: #### 2 908639, 7904578, 44183339, 48391249, 70366917, 29929479, 8134371 ####[facility] [address] [place] [address] CO2 [Moles/Vol] 24 mmol/L Normal 21-31 [facility] Comment on above: Performed By: #### 2 212921, 3485856, 65199064, 69427420, 77838494, 91476939, 0616464 ####[facility] [address] [place] [address] Creatinine [Mass/Vol] 4.9 mg/dL High 0.5-1.3 [facility] Comment on above: Performed By: #### 2 707218, 7842566, 65921266, 79840591, 14986898, 06889014, 3846074 ####[facility] [address] [place] [address] Glucose [Mass/Vol] 311 mg/dL High 55-199 [facility] Comment on above: Performed By: #### 2 327216, 7089285, 65210873, 05723940, 54949405, 04930208, 4595596 ####[facility] [address] [place] [address] Potassium [Moles/Vol] 5.3 mmol/L Normal 3.5-5.3 [facility] Comment on above: Performed By: #### 2 340105, 7159531, 86872680, 54305320, 96029744, 97230503, 2228938 ####[facility] [address] [place] [address] Sodium [Moles/Vol] 132 mmol/L Low 135-145 [facility] Comment on above: Performed By: #### 2 467713, 9719774, 37296166, 03867136, 07350970, 39751958, 2652465 ####[facility] [address] [place] [address] Urea nitrogen [Mass/Vol] 76 mg/dL High 5-21 [facility] Comment on above: Performed By: #### 2 645210, 1402455, 63943923, 20257038, 30759362, 67011246, 8187250 ####[facility] [address] [place] [address] Urea nitrogen/Creatinine [Mass ratio] 16 No Units Normal 10-20 [facility] Comment on above: Performed By: #### 2 895078, 4581702, 75077088, 53473513, 61309332, 67696160, 1037340 ####[facility] [address] [place] [address] BNPon 11-11-2023 Natriuretic peptide B (Bld) [Mass/Vol] 99 pg/mL High 5-80 [facility] Comment on above: Performed By: #### 2 465315, 9502086, 86658666, 34575633, 69765098, 82543159, 4314558 ####[facility] [address] [place] [address] Bilirubin Test strip Ql (U)O rdered By: Tera Nevarez on 11-11-2023 Bilirubin Ql (U) Negative Negative [facility] Blood Gas Art, with Lytes, G hugh, [place] 11-11-2023 a/A Ratio Art 26.50 % Normal >=0.80 [facility] Comment on above: Performed By: #### 4 [id number] ####[facility] [address] [place] [address] AaDO2 Art 157.8 mmHg High 5.0-15.0 [facility] Comment on above: Performed By: #### 4 [id number] ####[facility] [address] [place] [address] Allens Test Positive Normal [facility] Comment on above: Performed By: #### 4 [id number] ####[facility] [address] [facility] [address] Base Excess Arterial -2.4 mmol/L Low >=2.8 [facility] Comment on above: Performed By: #### 4 [id number] ####[facility] [address] [facility] [place] [address] cCa2+ Art 4.70 mg/dL Normal 4.40-5.30 [facility] Comment on above: Performed By: #### 4 [id number] ####[address] [place] [address] cCl- Art 97.0 mmol/L Low 101.0-111.0 [facility] Comment on above: Performed By: #### 4 [id number] ####[address] [place] [address] cGlu Art 311 mg/dL High 55-99 [facility] Comment on above: Performed By: #### 4 [id number] ####[address] [facility] [place] [address] cK+ Art 5.5 mmol/L High 3.5-5.3 [facility] Comment on above: Performed By: #### 4 15014208 ####[address] [place] [address] cLac Art 1.0 mmol/L Normal .5-2.2 [facility] Comment on above: Performed By: #### 4 [id number] ####[address] [facility] [place] [address] supervisor scrap preparation+ Art 135.0 mmol/L Normal 135.0-145.0 [facility] Comment on above: Performed By: #### 4 [id number] ####[address] [facility] [place] [address] Device Cannula Normal [facility] Comment on above: Performed By: #### 4 [id number] ####[address] [address] Drawn by korina schneite Invalid Interpretation Code [facility] Comment on above: Performed By: #### 4 [id number] ####[address] [place] [address] FCOHb Art 1.9 % Normal 1.5-4.9 [facility] Comment on above: Result Comment: Refe rence rangeNonsmoker <1.5%Smoker <5.0%Heavy Smoker <9.0% Performed By: #### 4 [id number] ####[address] [place] [address] FIO2 BG 40 Invalid Interpretation Code [facility] Comment on above: Performed By: #### 4 [id number] ####[address] [address] FMetHb Art 0.1 % Normal 0.0-1.9 [facility] Comment on above: Performed By: #### 4 15550590 ####[address] [address] FO2Hb Art 86.9 % Low 93.0-100.0 [facility] Comment on above: Performed By: #### 4 79366923 ####[address] [address] HCO3 (Bld) [Moles/Vol] 22.2 mmol/L Normal 22.0-26.0 [facility] Comment on above: Performed By: #### 4 12389538 ####[address] [address] Hemoglobin (Bld) [Mass/Vol] 12.8 g/dL Normal 12.0-17.0 [facility] Comment on above: Performed By: #### 4 [id number] ####[address] [address] Oxygen saturation in Blood 88.7 % Low 95.0-100.0 [facility] Comment on above: Performed By: #### 4 20479692 ####[address] [place] [address] P CO2 Arterial 58.0 mmHg High 35.0-45.0 [facility] Comment on above: Performed By: #### 4 51995274 ####[address] [address] P O2 Arterial 56.8 mmHg Low 80.0-100.0 [facility] Comment on above: Performed By: #### 4 39988310 ####[place] [address] pH Arterial 7.255 Low 7.350-7.450 [facility] Comment on above: Performed By: #### 4 61722111 ####[place] [address] Sample Site R Radial Normal [facility] Comment on above: Performed By: #### 4 45286565 ####[place] [address] Sample Type Arterial Draw Normal [facility] Comment on above: Performed By: #### 4 [id number] ####[place] [id number] CBC w/ Auto Diffon 4 Basophils/100 WBC (Bld) 0.5 % Normal 0.0-2.0 [facility] Comment on above: Performed By: #### 2 885357, 9543307, 17186489, 33850713, 55506270, 09305155, 5407892 ####[place] [address] Basophils/Leukocytes Auto (Bld) [Pure # fraction] 0.0 E9/L Normal 0.0-0.2 [facility] Comment on above: Performed By: #### 2 611948, 0326667, 77576031, 67304828, 99746978, 11478823, 8602918 ####[address] [address] Eosinophils (Bld) [#/Vol] 0.2 E9/L Normal 0.0-0.5 [facility] Comment on above: Performed By: #### 2 997514, 2702433, 93900899, 93618932, 98693991, 45643565, 8163136 ####[facility] [address] [place] [address] Eosinophils/100 WBC (Bld) 1.9 % Normal 0.0-8.0 [facility] Comment on above: Performed By: #### 2 165160, 0218931, 09574278, 09645015, 00664243, 27051593, 8051307 ####[address] [place] [address] Erythrocyte distribution width (RBC) [Ratio] 18.6 % High 10.9-14.2 [facility] Comment on above: Performed By: #### 2 863523, 5725135, 54507209, 06978878, 17466613, 23103014, 9075779 ####[address] [place] [address] Hematocrit (Bld) [Volume fraction] 41.9 % Normal 37.7-49.0 [facility] Comment on above: Performed By: #### 2 870704, 0030808, 52452630, 15742266, 39524403, 40365647, 7836717 ####[address] [place] [address] Hemoglobin (Bld) [Mass/Vol] 12.8 g/dL Low 13.5-17.5 [facility] Comment on above: Performed By: #### 2 482031, 5006424, 58776490, 37589309, 83782174, 59209716, 6439755 ####[address] [place] [address] Lymphocytes (Bld) [#/Vol] 0.8 E9/L Low 1.0-4.0 [facility] Comment on above: Performed By: #### 2 609400, 8741761, 09277279, 62762593, 68017712, 15037246, 4326831 ####[address] [place] [address] Lymphocytes/100 WBC (Bld) 9.1 % Low 14.0-50.0 [facility] Comment on above: Performed By: #### 2 795008, 1310409, 25035139, 33058711, 66212311, 19784147, 9410807 ####[address] [address] MCH (RBC) [Entitic mass] 26.4 pg Low 27.0-34.0 [facility] Comment on above: Performed By: #### 2 756009, 6750395, 68422438, 42337138, 71491184, 98320795, 6397925 ####[address] [address] MCHC (RBC) [Mass/Vol] 30.6 g/dL Low 31.4-36.0 [facility] Comment on above: Performed By: #### 2 935507, 6619010, 64568642, 15170323, 47308898, 96001995, 6297040 ####[address] [address] MCV (RBC) [Entitic vol] 86.3 fL Normal 80.0-100.0 [facility] Comment on above: Performed By: #### 2 903122, 0007950, 75189812, 44028126, 86969796, 21021423, 4923388 ####[address] [address] Monocytes (Bld) [#/Vol] 0.5 E9/L Normal 0.2-1.0 [facility] Comment on above: Performed By: #### 2 273676, 7715158, 51223209, 39503854, 20340383, 93017624, 5603990 ####[address] [address] Neutrophils (Bld) [#/Vol] 7.0 E9/L Normal 2.0-7.5 [facility] Comment on above: Performed By: #### 2 432805, 4215186, 56998306, 33863135, 25034150, 32908599, 6886003 ####[address] [place] [address] Neutrophils/100 WBC (Bld) 82.2 % High 36.0-75.0 [facility] Comment on above: Performed By: #### 2 244563, 1158435, 91172642, 40344934, 30509875, 68766193, 6916471 ####[address] [address] Platelet 254.0 E9/L Normal 150.0-500.0 [facility] Comment on above: Performed By: #### 2 225879, 7872355, 54821574, 14064822, 90814590, 13591069, 4183700 ####[address] [address] Platelet mean volume (Bld) [Entitic vol] 6.9 fL Normal 6.4-10.8 [facility] Comment on above: Performed By: #### 2 503560, 1261132, 75498260, 12240208, 07104891, 77946971, 3944103 ####[address] [address] RBC (Bld) [#/Vol] 4.9 E12/L Normal 4.3-5.9 [facility] Comment on above: Performed By: #### 2 555042, 9924542, 06813072, 19493250, 36647832, 79066224, 8201502 ####[address] [address] WBC corrected for nucl RBC Auto (Bld) [#/Vol] 8.5 E9/L Normal 4.0-11.0 [facility] Comment on above: Performed By: #### 2 700409, 8402072, 55485869, 92300070, 07859662, 10468522, 1666872 ####[facility] [address] [place] [id number] CHEMISTRYOrdered By: SYSTEM SYSTEM on 11-11-2023 Troponin [...] High Sensitivity Troponin I Instructions For Use, Procyrion, March 2018) Troponin 12.60 pg/mL Low 15.90 - 38.40 pg/mL [facility] Comment on above: Interpretive Data: T he 95% CI (Confidence Interval) PPV (Positive Predictive Value) for myocardial infarction in females is 38 pg/mL, in males 51 pg/mL. The results should be used in conjunction with clinical conditions of myocardial infarction. (Access High Sensitivity Troponin I Instructions For Use, Procyrion, March 2018) Anion gap [Moles/Vol] 18 mmol/L [...] Sensitivity Troponin I Instructions For Use, Opal [place], March 2018) Urea nitrogen [Mass/Vol] 76 mg/dL High 5 - 21 mg/dL [facility] Urea nitrogen/Creatinine [Mass ratio] 16 mg/mg Normal 10 - 20 [facility] CHEMISTRYOrdered By: Deacon Marcano on 11-11-2023 Natriuretic peptide B (Bld) [Mass/Vol] 99 pg/mL High 5 - 80 pg/mL [facility] COAGULATIONOrdered By: Catina Schmidt on 11-11-2023 aPTT Coag (PPP) [Time] 36.5 s Normal 25.1 - 36.5 second(s) [facility] Auto Coag Comment on above: Interpretive Data: [...] the same coagulation reagent and instrumentation as [facility]. Currently there are no coagulation studies available worldwide for children to 14 days, and no normal ranges. Heparin therapeutic range (represented by Anti-Factor Xa activity of 0.2 - 0.4 U/mL) corresponds to PTT of 56.6 - 109.0 sec. INR Coag (PPP) [Relative time] 0.94 {INR} Invalid Interpretation Code [facility] Auto Coag Comment on above: Interpretive Data: I NR results are specifically intended to assess patients stabilized on long-term Anticoagulation therapy suggested INR s Less Intensive Anticoagulation 2.0 3.0 Conventional Range 3.0 4.5 PT Coag (PPP) [Time] 10.5 s Normal 9.4 - 1 2.5 second(s) [facility] Auto Coag Comment on above: Interpretive Data: [...] the same coagulation reagent and instrumentation as [facility]. Currently there are no coagulation studies available worldwide for children to 14 days, and no normal ranges. Casts typing in urine sedime nt by light microscopyOrdered By: Tera Nevarez on 11-11-2023 Casts LM Nom (Urine sed) None seen [LPF] None Seen [facility] Color Auto (U)Ordered By: Neptali Nevarez on 11-11-2023 Color (U) [place] Yellow [facility] Consent for Treatmenton 10-20 Consent for Treatment [id number] .00TIFF Normal [facility] Creatine kinase [Enzymatic a ctivity/volume] in Serum or PlasmaOrdered By: Tera Nevarez on 11-11-2023 CK [Catalytic activity/Vol] 125 U/L 30-223 [facility] Creatinine [Mass/volume] in UrineOrdered By: Tera Nevarez on 11-11-2023 Creatinine (U) [Mass/Vol] 266.0 mg/dL 14.0-26.0 [facility] ED Clinical Summaryon 2023 ED Clinical Summary Normal [facility] ED Note-Physicianon 11-11-19 ED Note-Physician Normal [facility] Comment on above: Result Comment: Elec tronically Signed By: Greyson ENGLE, Paddy J.\.br\Date and Time Signed: 11/11/23 12:42 EDT\.br\Electronically Co-Signed By: Alejandro Silva M.D..br\Date and Time Co-Signed: 11/11/23 19:21 EDT ED Patient Education Noteon 11-11-2023 ED Patient Education Note Normal [facility] ED Patient Summaryon 024 ED Patient Summary Normal [facility] Eosinophils detection in uri ne sediment by Jean stainOrdered By: Tera Nevarez on 11-11-2023 Eosinophils Jean stain Ql (Urine sed) 1 % 0-1 [facility] FT Blood GasesOrdered By: St candice Hebert [...] 2.2 mmol/L [facility] Res p Auto SS supervisor scrap preparation+ Art 135.0 mmol/L Normal 135.0 - 145.0 [...] FIO2 BG 40 1 Invalid Interpretation Code [facility] Resp Auto SS FMetHb Art 0.1 % Normal 0.0 - 1.9 % [facility] Resp Auto SS FO2Hb Art 86.9 % Low 93.0 - 100.0 % [facility] Resp Auto SS HCO3 (Bld) [Moles/Vol] 22.2 mmol/L Normal 22.0 - 26.0 mmol/L [facility] Resp Auto SS Hemoglobin (Bld) [Mass/Vol] 12.8 g/dL Normal 12.0 - 17.0 gm/dL [facility] Resp Auto SS P CO2 Arterial 58.0 mm[Hg] High 35.0 - 45.0 mmHg FTM C Resp Auto SS P O2 Arterial 56.8 mm[Hg] Low 80.0 - 100.0 mmHg [facility] C Resp Auto SS pH (Bld) 7.255 [pH] Low 7.350 - 7.450 [facility] Resp Auto SS Sample Site R Radial (11/11/23 9:17 AM) Normal [facility] Resp Auto SS Sample Type Arterial Draw (11/11/23 9:17 AM) Normal [facility] Resp Auto SS HEMATOLOGYOrdered By: SYSTEM SYSTEM [...] on 11-11-2023 Ketones (U) [Mass/Vol] Negative Negative [facility] Lactate [Moles/volume] in Se rum or PlasmaOrdered By: Tera Nevarez on 11-11-2023 Lactate [Moles/Vol] 0.8 mmol/L 0.5-2.2 [facility] Lactic Acidon 11-11-2023 Lactic Acid Lvl 1.5 mmol/L Normal 0.5-2.2 [facility] Comment on above: Performed By: #### 2 378016, 5747551, 08319438, 94426531, 61165017, 80601297, 0195212 ####[facility] [address] [place] [address] Monitor Recordon 11-11-2023 Monitor Record [id number]# 1.00TIFF Normal [facility] Monitor Record [id number]# 1.00TIFF Normal [facility] Natriuretic peptide B [Mass/ Vol]Ordered By: Tera Nevarez on 11-11-2023 Natriuretic peptide B (Bld) [Mass/Vol] 115.0 pg/mL 5-100 [facility] Nitrite Test strip Ql (U)Ord ered By: Tera Nevarez on 11-11-2023 Nitrite Ql (U) Negative Negative [facility] No Panel InformationOrdered By: Tera Nevarez on 11-11-2023 Blood Gas Liter Flow 5 L/min [facility] PT & PTTon 11-11-2023 aPTT Coag (PPP) [Time] 36.5 second(s) Normal 25.1-36.5 [facility] Comment on above: Result Comment: Para [...] the same coagulation reagent and instrumentation as [facility]. Currently there are no coagulation studies available worldwide for children to 14 days, and no normal ranges. Heparin therapeutic range (represented by Anti-Factor Xa activity of 0.2 - 0.4 U/mL) corresponds to PTT of 56.6 - 109.0 sec. Performed By: #### 2 587571, 8950721, 84628197, 09744131, 02030999, 47865771, 9569503 ####[facility] [address] [place] [address] INR Coag (PPP) [Relative time] 0.94 {INR} Invalid Interpretation Code [facility] Comment on above: Result Comment: INR results are specifically intended to assess patients stabilized on long-term Anticoagulation therapy suggested INR?s ?Less Intensive Anticoagulation? 2.0 ? 3.0Conventional Range 3.0 ? 4.5 Performed By: #### 2 116486, 1693506, 55585123, 39123967, 94641211, 79524666, 2795341 ####[facility] [address] [place] [address] PT Coag (PPP) [Time] 10.5 second(s) Normal 9.4-12.5 [facility] Comment on above: Result Comment: 15 [...] the same coagulation reagent and instrumentation as [facility]. Currently there are no coagulation studies available worldwide for children to 14 days, and no normal ranges. Performed By: #### 2 954805, 9773088, 79378995, 29441231, 50434667, 81650025, 3545900 ####[facility] [address] [place] [address] Potassium [Moles/volume] in UrineOrdered By: Tera Nevarez on 11-11-2023 Potassium (U) [Moles/Vol] 29.7 mmol/L [facility] Comment on above: No reference range e stablished Pre-Arrival Noteon Pre-Arrival Note Normal [facility] Protein Auto test strip (U) [Mass/Vol]Ordered By: Tera Nevarez on 11-11-2023 Protein (U) [Mass/Vol] 100 mg/dL Negative [facility] Protein [Mass/volume] in Uri neOrdered By: Tera Nevarez on 11-11-2023 Protein (U) [Mass/Vol] 105 mg/dL 0-9 [facility] Sodium [Moles/volume] in Uri neOrdered By: Tera Nevarez on 11-11-2023 Sodium (U) [Moles/Vol] 18 mmol/L [facility] Comment on above: No reference range e stablished Specific gravity Auto test s trip (U) [Rel density]Ordered By: Tera Nevarez on 11-11-2023 Specific gravity (U) [Rel density] 1.017 1.001-1.030 [facility] Squamous epithelial cells de tection in urine sediment by light microscopyOrdered By: Tera Nevarez on 11-11-2023 Epithelial cells.squamous LM Ql (Urine sed) 0-1 [HPF] 0-2 [facility] Transfer Documentson 024 Transfer Documents [id number]# 1.00TIFF Normal [facility] Troponin 0 Hr.on 11-11-2023 Troponin 12.40 pg/mL Low 15.90-38.40 [facility] Comment on above: Result Comment: The 95% CI (Confidence Interval) PPV (Positive Predictive Value) for myocardial infarction in females is 38 pg/mL, in males 51 pg/mL. The results should be used in conjunction with clinical conditions of myocardial infarction.(Access High Sensitivity Troponin I Instructions For Use, Opal [place], March 2018) Performed By: #### 2 121563, 2277745, 49255194, 90743376, 29756812, 42290534, 2761507 ####[facility] [address] [place] [address] Troponin 3 Hr.on 11-11-2023 Troponin 12.60 pg/mL Low 15.90-38.40 [facility] Comment on above: Result Comment: The 95% CI (Confidence Interval) PPV (Positive Predictive Value) for myocardial infarction in females is 38 pg/mL, in males 51 pg/mL. The results should be used in conjunction with clinical conditions of myocardial infarction.(Access High Sensitivity Troponin I Instructions For Use, Procyrion, March 2018) Performed By: #### 1 [id number] ####[facility] [address] [place] [address] Troponin 6 Hr.on 11-11-2023 Troponin 12.90 pg/mL Low 15.90-38.40 [facility] Comment on above: Result Comment: The 95% CI (Confidence Interval) PPV (Positive Predictive Value) for myocardial infarction in females is 38 pg/mL, in males 51 pg/mL. The results should be used in conjunction with clinical conditions of myocardial infarction.(Bioheart High Sensitivity Troponin I Instructions For Use, Procyrion, March 2018) Performed By: #### 1 [id number] ####[address] [place] [address] Troponin I.cardiac [Mass/vol ume] in Serum or Plasma by Detection limit <= 0.01 ng/Ordered By: Tera Nevarez on 11-11-2023 Troponin I.cardiac DL <= 0.01 ng/mL [Mass/Vol] 12.3 pg/mL 0.0-20.0 [facility] UA with Cult Rflxon 11-11-19 24 Bilirubin Ql (U) 1+ Abnormal Negative [facility] Comment on above: Performed By: #### 2 222704, [id number] ####[facility] [address] [place] [address] Clarity (U) TURBID Abnormal Clear [facility] Comment on above: Performed By: #### 2 967231, [id number] ####[facility] [address] [place] [address] Color (U) BROWN Invalid Interpretation Code [facility] Comment on above: Performed By: #### 2 744931, [id number] ####[facility] [address] [place] [address] Glucose Test strip (U) [Mass/Vol] Negative Normal Negative [facility] Comment on above: Performed By: #### 2 183638, [id number] ####[facility] [address] [place] [address] Hemoglobin Ql (U) 3+ Abnormal Negative [facility] Comment on above: Performed By: #### 2 129589, [id number] ####[facility] [address] [place] [address] Ketones (U) [Mass/Vol] TRACE Invalid Interpretation Code Negative [facility] Comment on above: Performed By: #### 2 980522, [id number] ####[address] [address] Nitrite Ql (U) Positive Abnormal Negative [facility] Comment on above: Performed By: #### 2 227209, [id number] ####[address] [address] pH (U) 5.5 [pH] Invalid Interpretation Code 5.0-9.0 [facility] Comment on above: Performed By: #### 2 960461, [id number] ####[address] [address] Protein (U) [Mass/Vol] 2+ Abnormal Negative [facility] Comment on above: Performed By: #### 2 544210, [id number] ####[address] [address] Specific gravity (U) [Rel density] >=1.030 Invalid Interpretation Code 1.005-1.030 [facility] Comment on above: Performed By: #### 2 211607, [id number] ####[facility] [address] [place] [address] UA Bacteria 2+ CD:[id number] Abnormal Trace [facility] Comment on above: Performed By: #### 2 075185, [id number] ####[address] [address] UA Mucous Trace Normal Negative [facility] Comment on above: Performed By: #### 2 672816, [id number] ####[facility] [address] [facility] [place] [address] UA RBC >75 Abnormal 0-3 [facility] Comment on above: Performed By: #### 2 969330, [id number] ####[facility] [address] [facility] [address] UA Squam Epithelial 0-2 Normal 0-2 [facility] Comment on above: Performed By: #### 2 166798, [id number] ####[facility] [address] [facility] [place] [address] UA WBC 31-75 Abnormal 0-5 [facility] Comment on above: Performed By: #### 2 107979, [id number] ####[facility] [address] [place] [address], [place] [address] Urobilinogen Qn (U) 0.2 Normal 0.0-1.0 [facility] Comment on above: Performed By: #### 2 381953, [id number] ####[facility] [address] [place] [address] WBC Auto Ql (U) 1+ Abnormal Negative [facility] Comment on above: Performed By: #### 2 688633, [id number] ####[facility] [address] [facility] [place] [address] UA Spec Desc Clean Catch Normal [facility] Comment on above: Performed By: #### 2 332526, [id number] ####[facility] [address] [facility] [address] URINALYSISOrdered By: Yohannes Schmidt on 11-11-2023 Bilirubin [...] Auto Ql (U) None seen None Seen [facility] Urine clarity by refractomet ry automatedOrdered By: Tera Nevarez on 11-11-2023 Clarity Refractometry automated (U) Turbid Clear [facility] Urine culture routineOrdered By: Tera Nevarez on 11-11-2023 Bacteria identified Cx Nom (U) Kaelyn albicans [facility] Urine glucose measurement by automated test strip (mass/volume)Ordered By: Tera Nevarez on 11-11-2023 Glucose Auto test strip (U) [Mass/Vol] Normal mg/dL Normal [facility] Urine hemoglobin detection b y automated test stripOrdered By: Tera Nevarez on 11-11-2023 Hemoglobin Auto test strip Ql (U) 3+ Negative [facility] Urine leukocyte esterase det ection by automated test stripOrdered By: Tera Nevarez on 11-11-2023 Leukocyte esterase Auto test strip Ql (U) 3+ Negative [facility] Urobilinogen Auto test strip (U) [Mass/Vol]Ordered By: Tera Nevarez on 11-11-2023 Urobilinogen (U) [Mass/Vol] Normal mg/dL Normal [facility] XR Chest Single Viewon 11-10 XR Chest Single View Normal [facility] Yeast detection in urine sed iment by light microscopyOrdered By: Tera Nevarez on 11-11-2023 Yeast LM Ql (Urine sed) Hyphae present [HPF] None Seen [facility] Comment on above: 2+ eGFRon 11-11-2023 eGFR 12 mL/min/1.73 m2 Low >=59 [facility] Comment on above: Order Comment: Order added by Discern Expert. Performed By: #### 2 286197, 3963132, 72592660, 90987230, [id number], [id number], [id number] ####[facility] [address] [place] [address] pH Auto test strip (U)Ordere d By: Tera Nevarez on 11-11-2023 pH (U) 5.0 [pH] 5.0-9.0 [facility] Ambulatory Visit Summaryon 0 11-01-2023 Ambulatory Visit Summary Normal [facility] CNPNon 10-31-2023 CNPN Telephone (PODCCP) NICOLE LORA ([id number]) 1960 M Date Time Provider Department 10/31/23 [facility] During your visit today, we recorded the following information about you: Allergies As of Date: 10/31/2023 Noted Allergy Reaction PENICILLINS 12/01/2014 2 - Rash Date Reviewed: 10/25/2023 Reviewed by: Matt Kingston RN - Fully Assessed Reason for Visit: Follow Up Phone Call [2253] Cmt: Post Discharge F/U - attempt made. [...] by KIKO DEL VALLE on 10/31/23 Normal [facility] Consent for Treatmenton 10-19 Consent for Treatment [id number]#1 .00[facility]FF [facility] Discharge Instructionson Discharge Instructions [id number]# 1.00TIFF [facility] ED Clinical Summaryon 2023 ED Clinical Summary Normal [facility] ED Note-Physicianon 10-30-19 ED Note-Physician Normal [facility] Comment on above: Result Comment: Elec tronically Signed By: Staci Beck DO\Date and Time Signed: 10/30/23 05:22 EDT ED Patient Education Noteon 10-30-2023 ED Patient Education Note Normal [facility] ED Patient Summaryon 024 ED Patient Summary Normal [facility] CBC W Auto Differential pane l (Bld)on 10-28-2023 Basophils (Bld) [#/Vol] 0.04 10*3/uL Normal <0.11 [facility] Comment on above: Order Comment: Speci men Type: BLOOD SPECIMEN Ordering Facility: [facility] Address: [address] [place] [address] Performed By: #### 1 9123-04, #### [facility] CLIA [id number] [address] [place] [address] [place] Basophils/100 WBC (Bld) 0.7 % Normal [facility] Comment on above: Order Comment: Speci men Type: BLOOD SPECIMEN Ordering Facility: [facility] Address: [address] [place] [address] Performed By: #### 1 9123-04, #### [facility] CLIA [id number] [address] [place] [address] [place] Differential cell count method Nom (Bld) Auto Normal [facility] Comment on above: Order Comment: Speci men Type: BLOOD SPECIMEN Ordering Facility: [facility] Address: [address] [place] [address] Performed By: #### 1 9123-04, #### [facility] CLIA [id number] [address] [place] [address] [place] Eosinophils (Bld) [#/Vol] 0.32 10*3/uL Normal <0.46 [facility] Comment on above: Order Comment: Speci men Type: BLOOD SPECIMEN Ordering Facility: [facility] Address: [address] [place] [address] Performed By: #### 1 9123-04, #### [facility] CLIA [id number] [address] [place] [address] [place] Eosinophils/100 WBC (Bld) 5.4 % Normal [facility] Comment on above: Order Comment: Speci men Type: BLOOD SPECIMEN Ordering Facility: [facility] Address: [address] [place] [address] Performed By: #### 1 9123-04, #### [facility] CLIA [id number] [address] [place] [address] [place] Erythrocyte distribution width (RBC) [Ratio] 16.1 % High 11.5-15.0 [facility] Comment on above: Order Comment: Speci men Type: BLOOD SPECIMEN Ordering Facility: [facility] Address: [address] [place] [address] Performed By: #### 1 74, 32025-3 #### [facility] CLIA [id number] [address] [place] [address] [place] Hematocrit (Bld) [Volume fraction] 41.3 % Normal 39.0-51.0 [facility] Comment on above: Order Comment: Speci men Type: BLOOD SPECIMEN Ordering Facility: [facility] Address: [address] [place] [address] Performed By: #### 1 32, #### [facility] CLIA [id number] [address] [place] [address] [place] Hemoglobin (Bld) [Mass/Vol] 12.3 g/dL Low 13.0-17.0 [facility] Comment on above: Order Comment: Speci men Type: BLOOD SPECIMEN Ordering Facility: [facility] Address: [address] [place] [address] Performed By: #### 1 6179, #### [facility] CLIA [id number] [address] [place] [address] [place] Immature granulocytes (Bld) [#/Vol] 10*3/uL Normal <0.10 [facility] Comment on above: Order Comment: Speci men Type: BLOOD SPECIMEN Ordering Facility: [facility] Address: [address] [place] [address] Performed By: #### 1 2823-9, #### [facility] CLIA [id number] [address] [place] [address] [place] Immature granulocytes/100 WBC (Bld) 0.3 % Normal [facility] Comment on above: Order Comment: Speci men Type: BLOOD SPECIMEN Ordering Facility: [facility] Address: [address] [place] [address] Performed By: #### 1 86, 42483-0 #### [facility] CLIA [id number] [address] [place] [address] [place] Lymphocytes (Bld) [#/Vol] 1.01 10*3/uL Normal 1.00-4.00 [facility] Comment on above: Order Comment: Speci men Type: BLOOD SPECIMEN Ordering Facility: [facility] Address: [address] [place] [address] Performed By: #### 1 9123-9, #### [facility] CLIA [id number] [address] [place] [address] [place] Lymphocytes/100 WBC (Bld) 17.0 % Normal [facility] Comment on above: Order Comment: Speci men Type: BLOOD SPECIMEN Ordering Facility: [facility] Address: [address] [place] [address] Performed By: #### 1 9123-9, 60647-5 #### [facility] CLIA [id number] [address] [place] [address] [place] MCH (RBC) [Entitic mass] 26.6 pg Normal 26.0-34.0 [facility] Comment on above: Order Comment: Speci men Type: BLOOD SPECIMEN Ordering Facility: [facility] Address: [address] [place] [address] Performed By: #### 1 9123-9, #### [facility] CLIA [id number] [address] [place] [address] [place] MCHC (RBC) [Mass/Vol] 29.8 g/dL Low 30.5-36.0 [facility] Comment on above: Order Comment: Speci men Type: BLOOD SPECIMEN Ordering Facility: [facility] Address: [address] [place] [address] Performed By: #### 1 9123-9, 26664-6 #### [facility] CLIA [id number] [address] [place] [address] [place] MCV (RBC) [Entitic vol] 89.4 fL Normal 80.0-100.0 [facility] Comment on above: Order Comment: Speci men Type: BLOOD SPECIMEN Ordering Facility: [facility] Address: [address] [place] [address] Performed By: #### 1 239, 46598-9 #### [facility] CLIA [id number] [address] [place] [address] [place] Monocytes (Bld) [#/Vol] 0.67 10*3/uL Normal <0.87 [facility] Comment on above: Order Comment: Speci men Type: BLOOD SPECIMEN Ordering Facility: [facility] Address: [address] [place] [address] Performed By: #### 1 239, #### [facility] CLIA [id number] [address] [place] [address] [place] Monocytes/100 WBC (Bld) 11.3 % Normal [facility] Comment on above: Order Comment: Speci men Type: BLOOD SPECIMEN Ordering Facility: [facility] Address: [address] [place] [address] Performed By: #### 1 9123-04, #### [facility] CLIA [id number] [address] [place] [address] [place] Neutrophils (Bld) [#/Vol] 3.88 10*3/uL Normal 1.45-7.50 [facility] Comment on above: Order Comment: Speci men Type: BLOOD SPECIMEN Ordering Facility: [facility] Address: [address] [place] [address] Performed By: #### 1 23, #### [facility] CLIA [id number] [address] [place] [address] [place] Neutrophils/100 WBC (Bld) 65.3 % Normal [facility] Comment on above: Order Comment: Speci men Type: BLOOD SPECIMEN Ordering Facility: [facility] Address: [address] [place] [address] Performed By: #### 1 91239, 00992-5 #### [facility] CLIA [id number] [address] [place] [address] [place] Nucleated RBC (Bld) [#/Vol] 10*3/uL Normal <0.01 [facility] Comment on above: Order Comment: Speci men Type: BLOOD SPECIMEN Ordering Facility: [facility] Address: [address] [place] [address] Performed By: #### 1 9123-9, 96773-9 #### [facility] CLIA [id number] [address] [place] [address] [place] Nucleated RBC/100 WBC (Bld) [Ratio] 0.0 /100 WBC Normal [facility] Comment on above: Order Comment: Speci men Type: BLOOD SPECIMEN Ordering Facility: [facility] Address: [address] [place] [address] Performed By: #### 1 9123-9, 13685-2 #### [facility] CLIA [id number] [address] [place] [address] [place] Platelet mean volume (Bld) [Entitic vol] 8.9 fL Low 9.0-12.7 [facility] Comment on above: Order Comment: Speci men Type: BLOOD SPECIMEN Ordering Facility: [facility] Address: [address] [place] [address] Performed By: #### 1 9123-9, 60732-4 #### [facility] CLIA [id number] [address] [place] [address] [place] Platelets (Bld) [#/Vol] 250 10*3/uL Normal 150-400 [facility] Comment on above: Order Comment: Speci men Type: BLOOD SPECIMEN Ordering Facility: [facility] Address: [address] [place] [address] Performed By: #### 1 9123-9, 67196-6 #### [facility] CLIA [id number] [address] [place] [address] [place] RBC (Bld) [#/Vol] 4.62 10*6/uL Normal 4.20-6.00 [facility] Comment on above: Order Comment: Speci men Type: BLOOD SPECIMEN Ordering Facility: [facility] Address: [address] [place] [address] Performed By: #### 1 9123-9, 74950-5 #### [facility] CLIA [id number] [address] [place] [id number] [place] WBC (Bld) [#/Vol] 5.94 10*3/uL Normal 3.70-11.00 [facility] Comment on above: Order Comment: Speci men Type: BLOOD SPECIMEN Ordering Facility: [facility] Address: [facility] [place] [address] Performed By: #### 1 9123-9, 93546-1 #### [facility] CLIA [id number] [address] [place] [id number] [place] CNDSon 10-28-2023 CNDS HNO ID: [id number] Author: TAY STEWART MD Service: General Internal [...] Follow Up Appointments Follow-Up Appointment Office number: [phone] When: In 1 week Patient/Parents to call for appointment?: Yes Tay Stewart MD [phone] [place] [address] PCP Requested Referral Follow-Up Appointment With: your Primary Care Doctor When: In 1 week Patient/Parents to call for appointment?: Yes Additional Provider to Provider Information: This is a 63 year old male with a PMHx of CKD 3b, chronic respiratory failure, morbid obesity, insulin dependent diabetes, left forefoot amputation admitted from home, lives in [place] for fluid overload. The patient states he's [...] no ischemic (more content not included)... Normal [facility] Magnesium SerPl-mCncon 10-27 Magnesium [Mass/Vol] 2.0 mg/dL Normal 1.7-2.3 [facility] Comment on above: Order Comment: [place] Type: BLOOD SPECIMEN Ordering Facility: [facility] Address: [address] [place] [address] Performed By: #### 1 9123-9, 22080-6 #### [facility] CLIA [id number] [address] [place] [address] [place] Renal function 2000 panelon 10-28-2023 Albumin [Mass/Vol] 3.3 g/dL Low 3.9-4.9 [facility] Comment on above: Order Comment: [place] Type: BLOOD SPECIMEN Ordering Facility: [facility] Address: [address] [place] [address] Performed By: #### 1 9123-9, 34576-5 #### [facility] CLIA [id number] [place], [place] [id number] [place] Anion gap [Moles/Vol] 8 mmol/L Low 9-18 [facility] Comment on above: Order Comment: [place] Type: BLOOD SPECIMEN Ordering Facility: [facility] Address: [address] [place] [address] Performed By: #### 1 9123-9, 87098-8 #### [facility] CLIA [id number] [address] [place] [address] [place] Calcium [Mass/Vol] 9.1 mg/dL Normal 8.5-10.2 [facility] Comment on above: Order Comment: Speci men Type: BLOOD SPECIMEN Ordering Facility: [facility] Address: [address] [place] [address] Performed By: #### 1 9123-9, 38447-3 #### [facility] CLIA [id number] [address] [place] [address] [place] Chloride [Moles/Vol] 97 mmol/L Normal 97-105 [facility] Comment on above: Order Comment: Speci men Type: BLOOD SPECIMEN Ordering Facility: [facility] Address: [address] [place] [address] Performed By: #### 1 9123-9, 49811-8 #### [facility] CLIA [id number] [address] [place] [address] [place] CO2 [Moles/Vol] 35 mmol/L High 22-30 [facility] Comment on above: Order Comment: Speci men Type: BLOOD SPECIMEN Ordering Facility: [facility] Address: [address] [place] [address] Performed By: #### 1 9123-9, 97170-1 #### [facility] CLIA [id number] [address] [place] [address] [place] Creatinine [Mass/Vol] 1.72 mg/dL High 0.73-1.22 [facility] Comment on above: Order Comment: Speci men Type: BLOOD SPECIMEN Ordering Facility: [facility] Address: [address] [place] [address] Performed By: #### 1 9123-9, 40738-0 #### [facility] CLIA [id number] [address] [place] [address] [place] Creatinine and Glomerular filtration rate.predicted panel (S/P/Bld) 44 mL/min/1.73m??? Low >=60 [facility] Comment on above: Order Comment: Speci men Type: BLOOD SPECIMEN Ordering Facility: [facility] Address: [address] [place] [address] Result Comment: Meredith mated Glomerular Filtration Rate [...] actual GFR. Performed By: #### 1 9123-9, 15951-2 #### [facility] CLIA [id number] [address] [place] [address] [place] Glucose [Mass/Vol] 152 mg/dL High 74-99 [facility] Comment on above: Order Comment: [place] Type: BLOOD SPECIMEN Ordering Facility: [facility] Address: [address] [place] [address] Result Comment: The [place] Diabetes Association (ADA) provides guidance for cutoff [...] Standards of Medical Care in Diabetes 2016, [place] [employer]. Diabetes Care. 2016.39(Suppl 1). Performed By: #### 1 9123-9, 54856-6 #### [facility] CLIA [id number] [address] [place] [address] [place] Phosphate [Mass/Vol] 4.6 mg/dL Normal 2.7-4.8 [facility] Comment on above: Order Comment: [place] Type: BLOOD SPECIMEN Ordering Facility: [facility] Address: [address] [place] [address] Performed By: #### 1 9123-9, 22609-2 #### [facility] CLIA [id number] [address] [place] [address] [place] Potassium [Moles/Vol] 4.0 mmol/L Normal 3.7-5.1 [facility] Comment on above: Order Comment: Speci men Type: BLOOD SPECIMEN Ordering Facility: [facility] Address: [address] [place] [address] Performed By: #### 1 9123-9, 87528-1 #### [facility] CLIA [id number] [address] [place] [address] [place] Sodium [Moles/Vol] 140 mmol/L Normal 136-144 [facility] Comment on above: Order Comment: Speci men Type: BLOOD SPECIMEN Ordering Facility: [facility] Address: [address] [place] [address] Performed By: #### 1 9123-9, 26518-5 #### [facility] CLIA [id number] [address] [place] [address] [place] Urea nitrogen [Mass/Vol] 39 mg/dL High 9-24 [facility] Comment on above: Order Comment: Speci men Type: BLOOD SPECIMEN Ordering Facility: [facility] Address: [address] [place] [address] Performed By: #### 1 9123-9, 50540-8 #### [facility] CLIA [id number] [address] [place] [address] [place] CBC W Auto Differential pane l (Bld)on 10-27-2023 Basophils (Bld) [#/Vol] 10*3/uL Normal <0.11 [facility] Comment on above: Order Comment: Speci men Type: BLOOD SPECIMEN Ordering Facility: [facility] Address: [address] [place] [address] Performed By: #### 1 9123-9, 18523-4 #### [facility] CLIA [id number] [address] [place] [address] [place] Basophils/100 WBC (Bld) 0.3 % Normal [facility] Comment on above: Order Comment: Speci men Type: BLOOD SPECIMEN Ordering Facility: [facility] Address: [address] [place] [address] Performed By: #### 1 239, #### [facility] CLIA [id number] [address] [place] [address] [place] Differential cell count method Nom (Bld) Auto Normal [facility] Comment on above: Order Comment: Speci men Type: BLOOD SPECIMEN Ordering Facility: [facility] Address: [address] [place] [address] Performed By: #### 1 9123-04, #### [facility] CLIA [id number] [address] [place] [address] [place] Eosinophils (Bld) [#/Vol] 0.26 10*3/uL Normal <0.46 [facility] Comment on above: Order Comment: Speci men Type: BLOOD SPECIMEN Ordering Facility: [facility] Address: [address] [place] [address] Performed By: #### 1 9123-04, #### [facility] CLIA [id number] [address] [place] [address] [place] Eosinophils/100 WBC (Bld) 4.4 % Normal [facility] Comment on above: Order Comment: Speci men Type: BLOOD SPECIMEN Ordering Facility: [facility] Address: [address] [place] [address] Performed By: #### 1 9123-04, #### [facility] CLIA [id number] [address] [place] [address] [place] Erythrocyte distribution width (RBC) [Ratio] 16.0 % High 11.5-15.0 [facility] Comment on above: Order Comment: Speci men Type: BLOOD SPECIMEN Ordering Facility: [facility] Address: [address] [place] [address] Performed By: #### 1 239, #### [facility] CLIA [id number] [address] [place] [address] [place] Hematocrit (Bld) [Volume fraction] 39.9 % Normal 39.0-51.0 [facility] Comment on above: Order Comment: Speci men Type: BLOOD SPECIMEN Ordering Facility: [facility] Address: [address] [place] [address] Performed By: #### 1 239, 00884-4 #### [facility] CLIA [id number] [address] [place] [address] [place] Hemoglobin (Bld) [Mass/Vol] 12.0 g/dL Low 13.0-17.0 [facility] Comment on above: Order Comment: Speci men Type: BLOOD SPECIMEN Ordering Facility: [facility] Address: [address] [place] [address] Performed By: #### 1 239, 31670-8 #### [facility] CLIA [id number] [address] [place] [address] [place] Immature granulocytes (Bld) [#/Vol] 10*3/uL Normal <0.10 [facility] Comment on above: Order Comment: Speci men Type: BLOOD SPECIMEN Ordering Facility: [facility] Address: [address] [place] [address] Performed By: #### 1 23, 59707-4 #### [facility] CLIA [id number] [address] [place] [address] [place] Immature granulocytes/100 WBC (Bld) 0.3 % Normal [facility] Comment on above: Order Comment: Speci men Type: BLOOD SPECIMEN Ordering Facility: [facility] Address: [address] [place] [address] Performed By: #### 1 23, 56698-9 #### [facility] CLIA [id number] [address] [place] [address] [place] Lymphocytes (Bld) [#/Vol] 0.96 10*3/uL Low 1.00-4.00 [facility] Comment on above: Order Comment: Speci men Type: BLOOD SPECIMEN Ordering Facility: [facility] Address: [address] [place] [address] Performed By: #### 1 9123-9, 96606-5 #### [facility] CLIA [id number] [address] [place] [address] [place] Lymphocytes/100 WBC (Bld) 16.4 % Normal [facility] Comment on above: Order Comment: Speci men Type: BLOOD SPECIMEN Ordering Facility: [facility] Address: [address] [place] [address] Performed By: #### 1 9123-9, 50470-5 #### [facility] CLIA [id number] [address] [place] [address] [place] MCH (RBC) [Entitic mass] 26.7 pg Normal 26.0-34.0 [facility] [facility] Comment on above: Order Comment: Speci men Type: BLOOD SPECIMEN Ordering Facility: [facility] Address: [address] [place] [address] Performed By: #### 1 9123-9, #### [facility] CLIA [id number] [address] [place] [address] [place] MCHC (RBC) [Mass/Vol] 30.1 g/dL Low 30.5-36.0 [facility] Comment on above: Order Comment: Speci men Type: BLOOD SPECIMEN Ordering Facility: [facility] Address: [address] [place] [address] Performed By: #### 1 3423-9, #### [facility] CLIA [id number] [address] [place] [address] [place] MCV (RBC) [Entitic vol] 88.9 fL Normal 80.0-100.0 [facility] Comment on above: Order Comment: Speci men Type: BLOOD SPECIMEN Ordering Facility: [facility] Address: [address] [place] [address] Performed By: #### 1 9123-9, #### [facility] CLIA [id number] [address] [place] [address] [place] Monocytes (Bld) [#/Vol] 0.70 10*3/uL Normal <0.87 [facility] Comment on above: Order Comment: Speci men Type: BLOOD SPECIMEN Ordering Facility: [facility] Address: [address] [place] [address] Performed By: #### 1 239, #### [facility] CLIA [id number] [address] [place] [address] [place] Monocytes/100 WBC (Bld) 11.9 % Normal [facility] Comment on above: Order Comment: Speci men Type: BLOOD SPECIMEN Ordering Facility: [facility] Address: [address] [place] [address] Performed By: #### 1 91239, #### [facility] CLIA [id number] [address] [place] [address] [place] Neutrophils (Bld) [#/Vol] 3.91 10*3/uL Normal 1.45-7.50 [facility] Comment on above: Order Comment: Speci men Type: BLOOD SPECIMEN Ordering Facility: [facility] Address: [address] [place] [address] Performed By: #### 1 91239, #### [facility] CLIA [id number] [address] [place] [address] [place] Neutrophils/100 WBC (Bld) 66.7 % Normal [facility] Comment on above: Order Comment: Speci men Type: BLOOD SPECIMEN Ordering Facility: [facility] Address: [address] [place] [address] Performed By: #### 1 91239, #### [facility] CLIA [id number] [address] [place] [address] [place] Nucleated RBC (Bld) [#/Vol] 10*3/uL Normal <0.01 [facility] Comment on above: Order Comment: Speci men Type: BLOOD SPECIMEN Ordering Facility: [facility] Address: [address] [place] [address] Performed By: #### 1 9123-9, 61683-4 #### [facility] CLIA [id number] [address] [place] [address] [place] Nucleated RBC/100 WBC (Bld) [Ratio] 0.0 /100 WBC Normal [facility] Comment on above: Order Comment: Speci men Type: BLOOD SPECIMEN Ordering Facility: [facility] Address: [address] [place] [address] Performed By: #### 1 9123-9, 42873-0 #### [facility] CLIA [id number] [address] [place] [address] [place] Platelet mean volume (Bld) [Entitic vol] 8.7 fL Low 9.0-12.7 [facility] Comment on above: Order Comment: Speci men Type: BLOOD SPECIMEN Ordering Facility: [facility] Address: [address] [place] [address] Performed By: #### 1 9123-9, 65448-2 #### [facility] CLIA [id number] [address] [place] [address] [place] Platelets (Bld) [#/Vol] 222 10*3/uL Normal 150-400 [facility] Comment on above: Order Comment: Speci men Type: BLOOD SPECIMEN Ordering Facility: [facility] Address: [address] [place] [address] Performed By: #### 1 9123-9, 35387-0 #### [facility] CLIA [id number] [address] [place] [address] [place] RBC (Bld) [#/Vol] 4.49 10*6/uL Normal 4.20-6.00 [facility] Comment on above: Order Comment: Speci men Type: BLOOD SPECIMEN Ordering Facility: [facility] Address: [address] [place] [address] Performed By: #### 1 9123-9, 72626-4 #### [facility] CLIA [id number] [address] [place] [address] [place] WBC (Bld) [#/Vol] 5.87 10*3/uL Normal 3.70-11.00 [facility] Comment on above: Order Comment: Speci men Type: BLOOD SPECIMEN Ordering Facility: [facility] Address: [address] [place] [address] Performed By: #### 1 9123-9, 14717-1 #### [facility] CLIA [id number] STATES OF [facility] CONSULT PROGon 10-27-2023 CONSULT PROG HNO ID: [id number] Author: NAUN COUCH MD Service: Nephrology Author [...] Date Value 10/27/2023 9.1 Impression/Recommenda tions Mr. Lroa is a 63 year old male with a past medical history of CKD III with baseline Cr up ~ 1.5, chronic respiratory failure on 4L home O2 since 05/2023, morbid obesity, insulin dependent diabetes, and left forefoot amputation admitted from home who presented to [facility] with complaints of worsening shortness of breath, bilateral lower extremity edema and ~ 10lb weight gain in the last few weeks. Patient reports multiple hospital admissions in 2023 at [facility] in [place] for fluid overload. He states he usually [...] feeling b (more content not included)... Normal [facility] Comprehensive metabolic 2000 panelon 10-27-2023 Albumin [Mass/Vol] 3.3 g/dL Low 3.9-4.9 [facility] Comment on above: Order Comment: [place] Type: BLOOD SPECIMEN Ordering Facility: [facility] Address: [address] [place] [address] Performed By: #### 1 9123-9, 30000-7 #### [facility] CLIA [id number] [address] [place] [address] [place] ALP [Catalytic activity/Vol] 88 U/L Normal 38-113 [facility] Comment on above: Order Comment: [place] Type: BLOOD SPECIMEN Ordering Facility: [facility] Address: [address] [place] [address] Performed By: #### 1 9123-9, 74323-9 #### [facility] CLIA [id number] [place] [address] [place] ALT [Catalytic activity/Vol] 11 U/L Normal 10-54 [facility] Comment on above: Order Comment: Speci men Type: BLOOD SPECIMEN Ordering Facility: [facility] Address: [address] [place] [address] Performed By: #### 1 9123-9, 24959-2 #### [facility] CLIA [id number] [address] [place] [address] [place] Anion gap [Moles/Vol] 9 mmol/L Normal 9-18 [facility] Comment on above: Order Comment: Speci men Type: BLOOD SPECIMEN Ordering Facility: [facility] Address: [address] [place] [address] Performed By: #### 1 9123-9, 04351-7 #### [facility] CLIA [id number] [address] [place] [address] [place] AST [Catalytic activity/Vol] 11 U/L Low 14-40 [facility] Comment on above: Order Comment: Speci men Type: BLOOD SPECIMEN Ordering Facility: [facility] Address: [address] [place] [address] Performed By: #### 1 9123-9, 43729-7 #### [facility] CLIA [id number] [address] [place] [address] [place] Bilirubin [Mass/Vol] 0.6 mg/dL Normal 0.2-1.3 [facility] Comment on above: Order Comment: Speci men Type: BLOOD SPECIMEN Ordering Facility: [facility] Address: [address] [place] [address] Performed By: #### 1 9123-9, 11450-2 #### [facility] CLIA [id number] [address] [place] [address] [place] Calcium [Mass/Vol] 9.1 mg/dL Normal 8.5-10.2 [facility] Comment on above: Order Comment: Speci men Type: BLOOD SPECIMEN Ordering Facility: [facility] Address: [address] [place] [address] Performed By: #### 1 9123-9, 34768-9 #### [facility] CLIA [id number] [address] [place] [address] [place] Chloride [Moles/Vol] 100 mmol/L Normal 97-105 [facility] Comment on above: Order Comment: Speci men Type: BLOOD SPECIMEN Ordering Facility: [facility] Address: [address] [place] [address] Performed By: #### 1 9123-9, 32184-2 #### [facility] CLIA [id number] [address] [place] [address] [place] CO2 [Moles/Vol] 35 mmol/L High 22-30 [facility] Comment on above: Order Comment: Speci men Type: BLOOD SPECIMEN Ordering Facility: [facility] Address: [address] [place] [address] Performed By: #### 1 9123-9, 52526-4 #### [facility] CLIA [id number] [address] [place] [address] [place] Creatinine [Mass/Vol] 1.62 mg/dL High 0.73-1.22 [facility] Comment on above: Order Comment: Speci men Type: BLOOD SPECIMEN Ordering Facility: [facility] Address: [address] [place] [address] Performed By: #### 1 9123-9, 61236-1 #### [facility] CLIA [id number] [address] [place] [address] [place] Creatinine and Glomerular filtration rate.predicted panel (S/P/Bld) 47 mL/min/1.73m??? Low >=60 [facility] Comment on above: Order Comment: Speci men Type: BLOOD SPECIMEN Ordering Facility: [facility] Address: [address] [place] [address] Result Comment: Meredith mated Glomerular Filtration Rate [...] actual GFR. Performed By: #### 1 9123-9, 24574-0 #### [facility] CLIA [id number] [address] [place] [address] [place] Glucose [Mass/Vol] 145 mg/dL High 74-99 [facility] Comment on above: Order Comment: [place] Type: BLOOD SPECIMEN Ordering Facility: [facility] Address: [address] [place] [address] Result Comment: The [place] Diabetes Association (ADA) provides guidance for cutoff [...] Standards of Medical Care in Diabetes 2016, [place] [employer]. Diabetes Care. 2016.39(Suppl 1). Performed By: #### 1 9123-9, 78181-3 #### [facility] CLIA [id number] [address] [place] [address] [place] Potassium [Moles/Vol] 4.1 mmol/L Normal 3.7-5.1 [facility] Comment on above: Order Comment: [place] Type: BLOOD SPECIMEN Ordering Facility: [facility] Address: [address] [place] [address] Performed By: #### 1 9123-9, 40572-3 #### [facility] CLIA [id number] [address] [place] [address] [place] Protein [Mass/Vol] 6.3 g/dL Normal 6.3-8.0 [facility] Comment on above: Order Comment: [place] Type: BLOOD SPECIMEN Ordering Facility: [facility] Address: [address] [place] [address] Performed By: #### 1 9123-9, 33837-8 #### [facility] CLIA [id number] [address] [place], [place] [address] [place] Sodium [Moles/Vol] 144 mmol/L Normal 136-144 [facility] Comment on above: Order Comment: Speci men Type: BLOOD SPECIMEN Ordering Facility: [facility] Address: [address] [place] [address] Performed By: #### 1 9123-9, 03534-6 #### [facility] CLIA [id number] [address] [place] [address] [place] Urea nitrogen [Mass/Vol] 40 mg/dL High 05-14 [facility] Comment on above: Order Comment: Speci men Type: BLOOD SPECIMEN Ordering Facility: [facility] Address: [address] [place] [address] Performed By: #### 1 9123-9, 20163-5 #### [facility] CLIA [id number] [address] [place] [address] [place] Magnesium SerPl-mCncon 10-26 Magnesium [Mass/Vol] 1.9 mg/dL Normal 1.7-2.3 [facility] Comment on above: Order Comment: Speci men Type: BLOOD SPECIMEN Ordering Facility: [facility] Address: [address] [place] [address] Performed By: #### 1 9123-9, 05995-8 #### [facility] CLIA [id number] [address] [place] [address] [place] Phosphate SerPl-mCncon 10-26 Phosphate [Mass/Vol] 4.1 mg/dL Normal 2.7-4.8 [facility] Comment on above: Order Comment: Speci men Type: BLOOD SPECIMEN Ordering Facility: [facility] Address: [address] [place] [address] Performed By: #### 1 9123-9, 03863-3 #### [facility] CLIA [id number] [address] [place] [address] [place] THERAPY NTon 10-27-2023 THERAPY NT HNO ID: [id number] Author: VELIA HARGROVE, [employer] Service: Respiratory Therapy Author Type: Respiratory Therapist [...] 26, 2023 TIME: 10:12 PM PAGER/CONTACT #: [facility] CBC W Auto Differential pane l (Bld)on 10-26-2023 Basophils (Bld) [#/Vol] 0.04 10*3/uL Normal <0.11 [facility] Comment on above: Order Comment: Speci men Type: BLOOD SPECIMEN Ordering Facility: [facility] Address: [address] [place] [address] Performed By: #### P TTAC #### [facility] CLIA [id number] [address] [place] [address] [place] Basophils/100 WBC (Bld) 0.6 % Normal [facility] Comment on above: Order Comment: Speci men Type: BLOOD SPECIMEN Ordering Facility: [facility] Address: [address] [place] [address] Performed By: #### P TTAC #### [facility] CLIA [id number] [address] [place] [address] [place] Differential cell count method Nom (Bld) Auto Normal [facility] Comment on above: Order Comment: Speci men Type: BLOOD SPECIMEN Ordering Facility: [facility] Address: [address] [place] [address] Performed By: #### P TTAC #### [facility] CLIA [id number] [address] [place] [address] [place] Eosinophils (Bld) [#/Vol] 0.29 10*3/uL Normal <0.46 [facility] Comment on above: Order Comment: Speci men Type: BLOOD SPECIMEN Ordering Facility: [facility] Address: [address] [place] [address] Performed By: #### P TTAC #### [facility] CLIA [id number] [address] [place] [address] [place] Eosinophils/100 WBC (Bld) 4.5 % Normal [facility] Comment on above: Order Comment: Speci men Type: BLOOD SPECIMEN Ordering Facility: [facility] Address: [address] [place] [address] Performed By: #### P TTAC #### [facility] CLIA [id number] [address] [place] [address] [place] Erythrocyte distribution width (RBC) [Ratio] 16.3 % High 11.5-15.0 [facility] Comment on above: Order Comment: Speci men Type: BLOOD SPECIMEN Ordering Facility: [facility] Address: [address] [place] [address] Performed By: #### P TTAC #### [facility] CLIA [id number] [address] [place] [address] [place] Hematocrit (Bld) [Volume fraction] 38.8 % Low 39.0-51.0 [facility] Comment on above: Order Comment: Speci men Type: BLOOD SPECIMEN Ordering Facility: [facility] Address: [address] [place] [address] Performed By: #### P TTAC #### [facility] CLIA [id number] [address] [place] [address] [place] Hemoglobin (Bld) [Mass/Vol] 11.6 g/dL Low 13.0-17.0 [facility] Comment on above: Order Comment: Speci men Type: BLOOD SPECIMEN Ordering Facility: [facility] Address: [address] [place] [address] Performed By: #### P TTAC #### [facility] CLIA [id number] [address] [place] [address] [place] Immature granulocytes (Bld) [#/Vol] 0.06 10*3/uL Normal <0.10 [facility] Comment on above: Order Comment: Speci men Type: BLOOD SPECIMEN Ordering Facility: [facility] Address: [address] [place] [address] Performed By: #### P TTAC #### [facility] CLIA [id number] [address] [place] [address] [place] Immature granulocytes/100 WBC (Bld) 0.9 % Normal [facility] Comment on above: Order Comment: Speci men Type: BLOOD SPECIMEN Ordering Facility: [facility] Address: [address] [place] [address] Performed By: #### P TTAC #### [facility] CLIA [id number] [address] [place] [address] [place] Lymphocytes (Bld) [#/Vol] 0.94 10*3/uL Low 1.00-4.00 [facility] Comment on above: Order Comment: Speci men Type: BLOOD SPECIMEN Ordering Facility: [facility] Address: [address] [place] [address] Performed By: #### P TTAC #### [facility] CLIA [id number] [address] [place] [address] [place] Lymphocytes/100 WBC (Bld) 14.5 % Normal [facility] Comment on above: Order Comment: Speci men Type: BLOOD SPECIMEN Ordering Facility: [facility] Address: [address] [place] [address] Performed By: #### P TTAC #### [facility] CLIA [id number] [address] [place] [address] [place] MCH (RBC) [Entitic mass] 27.0 pg Normal 26.0-34.0 [facility] Comment on above: Order Comment: Speci men Type: BLOOD SPECIMEN Ordering Facility: [facility] Address: [address] [place] [address] Performed By: #### P TTAC #### [facility] CLIA [id number] [address] [place] [address] [place] MCHC (RBC) [Mass/Vol] 29.9 g/dL Low 30.5-36.0 [facility] Comment on above: Order Comment: Speci men Type: BLOOD SPECIMEN Ordering Facility: [facility] Address: [address] [place] [address] Performed By: #### P TTAC #### [facility] CLIA [id number] [address] [place] [address] [place] MCV (RBC) [Entitic vol] 90.2 fL Normal 80.0-100.0 [facility] Comment on above: Order Comment: Speci men Type: BLOOD SPECIMEN Ordering Facility: [facility] Address: [address] [place] [address] Performed By: #### P TTAC #### [facility] CLIA [id number] [address] [place] [address] [place] Monocytes (Bld) [#/Vol] 0.71 10*3/uL Normal <0.87 [facility] Comment on above: Order Comment: Speci men Type: BLOOD SPECIMEN Ordering Facility: [facility] Address: [address] [place] [address] Performed By: #### P TTAC #### [facility] CLIA [id number] [address] [place] [address] [place] Monocytes/100 WBC (Bld) 10.9 % Normal [facility] Comment on above: Order Comment: Speci men Type: BLOOD SPECIMEN Ordering Facility: [facility] Address: [address] [place] [address] Performed By: #### P TTAC #### [facility] CLIA [id number] [address] [place] [address] [place] Neutrophils (Bld) [#/Vol] 4.45 10*3/uL Normal 1.45-7.50 [facility] Comment on above: Order Comment: Speci men Type: BLOOD SPECIMEN Ordering Facility: [facility] Address: [address] [place] [address] Performed By: #### P TTAC #### [facility] CLIA [id number] [address] [place] [address] [place] Neutrophils/100 WBC (Bld) 68.6 % Normal [facility] Comment on above: Order Comment: Speci men Type: BLOOD SPECIMEN Ordering Facility: [facility] Address: [address] [place] [address] Performed By: #### P TTAC #### [facility] CLIA [id number] [address] [place] [address] [place] Nucleated RBC (Bld) [#/Vol] 10*3/uL Normal <0.01 [facility] Comment on above: Order Comment: Speci men Type: BLOOD SPECIMEN Ordering Facility: [facility] Address: [address] [place] [address] Performed By: #### P TTAC #### [facility] CLIA [id number] [address] [place] [address] [place] Nucleated RBC/100 WBC (Bld) [Ratio] 0.0 /100 WBC Normal [facility] Comment on above: Order Comment: Speci men Type: BLOOD SPECIMEN Ordering Facility: [facility] Address: [address] [place] [address] Performed By: #### P TTAC #### [facility] CLIA [id number] [address] [place] [address] [place] Platelet mean volume (Bld) [Entitic vol] 9.0 fL Normal 9.0-12.7 [facility] Comment on above: Order Comment: Speci men Type: BLOOD SPECIMEN Ordering Facility: [facility] Address: [address] [place] [address] Performed By: #### P TTAC #### [facility] CLIA [id number] [address] [place] [address] [place] Platelets (Bld) [#/Vol] 247 10*3/uL Normal 150-400 [facility] Comment on above: Order Comment: Speci men Type: BLOOD SPECIMEN Ordering Facility: [facility] Address: [address] [place] [address] Performed By: #### P TTAC #### [facility] CLIA [id number] [address] [place] [address] [place] RBC (Bld) [#/Vol] 4.30 10*6/uL Normal 4.20-6.00 [facility] Comment on above: Order Comment: [place] Type: BLOOD SPECIMEN Ordering Facility: [facility] Address: [address] [place] [address] Performed By: #### P TTAC #### [facility] CLIA [id number] [place] WBC (Bld) [#/Vol] 6.49 10*3/uL Normal 3.70-11.00 [facility] Comment on above: Order Comment: [place] Type: BLOOD SPECIMEN Ordering Facility: [facility] Address: [address] [place] [address] Performed By: #### P TTAC #### [facility] CLIA [id number] [place] [address] CONSULTon 10-26-2023 CONSULT HNO ID: [id number] Author: STEFANIE BARRETT MD Service: Pulmonary Disease [...] Airways Li (more content not included)... Normal [facility] CONSULT PROGon 10-26-2023 CONSULT PROG HNO ID: [id number] Author: GORDO BUTLER APRN.CNP Service: Cardiovascular Medicine Author Type: Nurse Practitioner Type: Consult Progress Note Filed: 10/26/2023 14:03 Note Text: [facility] CARDIOVASCULAR MEDICINE PROGRESS NOTE (Template ID [id number]) SERVICE DATE: 10/26/2023 SERVICE TIME: 1115 PRIMARY [...] 0141 -- 10/25/2314 activity - mobilize patient ([place], [place]) 10/24/23144 activity - mobilize [place] ([place] VTE Prophylaxis: VTE prophylaxis appropriate ASSESSMENT [...] DATE: October 26, 2023 TIME: 1:[address] [facility] CONSULT PROG HNO ID: [id number] Author: NAUN COUCH MD Service: Nephrology Author [...] amputation admitted from home who presented to [facility] with complaints of worsening shortness of breath, bilateral lower extremity edema and ~ 10lb weight gain in the last few weeks. Patient reports multiple hospital admissions in 2023 at [facility] in [place] for fluid overload. He states he usually [...] mg TID More stable, feeling better -HTN [employer]OGR[employer] Hydra (more content not included)... Normal [facility] Magnesium SerPl-mCncon 10-25 Magnesium [Mass/Vol] 2.1 mg/dL Normal 1.7-2.3 [facility] Comment on above: Order Comment: Speci men Type: BLOOD SPECIMEN Ordering Facility: [facility] Address: [address] [place] [address] Performed By: #### 1 9123-9, 95711-7 #### [facility] CLIA [id number] [address] [place] [address] [place] Renal function 2000 panelon 10-26-2023 Albumin [Mass/Vol] 3.3 g/dL Low 3.9-4.9 [facility] Comment on above: Order Comment: Speci chapis Type: BLOOD SPECIMEN Ordering Facility: [facility] Address: [address] [place] [address] Performed By: #### 1 4223-9, 48966-8 #### [facility] CLIA [id number] [address] [place] [address] [place] Anion gap [Moles/Vol] 15 mmol/L Normal 9-18 [facility] Comment on above: Order Comment: Speci men Type: BLOOD SPECIMEN Ordering Facility: [facility] Address: [address] [place] [address] Performed By: #### 1 9123-9, 52944-4 #### [facility] CLIA [id number] [address] [place] [address] [place] Calcium [Mass/Vol] 9.1 mg/dL Normal 8.5-10.2 [facility] Comment on above: Order Comment: Speci men Type: BLOOD SPECIMEN Ordering Facility: [facility] Address: [address] [place] [address] Performed By: #### 1 3823-9, 09474-2 #### [facility] CLIA [id number] [address] [place] [address] [place] Chloride [Moles/Vol] 101 mmol/L Normal 97-105 [facility] Comment on above: Order Comment: Speci men Type: BLOOD SPECIMEN Ordering Facility: [facility] Address: [address] [place] [address] Performed By: #### 1 9123-9, 25389-8 #### [facility] CLIA [id number] [address] [place] [address] [place] CO2 [Moles/Vol] 30 mmol/L Normal 22-30 [facility] Comment on above: Order Comment: Speci men Type: BLOOD SPECIMEN Ordering Facility: [facility] Address: [address] [place] [address] Performed By: #### 1 9123-9, 33882-9 #### [facility] CLIA [id number] [address] [place] [address] [place] Creatinine [Mass/Vol] 1.84 mg/dL High 0.73-1.22 [facility] Comment on above: Order Comment: Speci men Type: BLOOD SPECIMEN Ordering Facility: [facility] Address: [address] [place] [address] Performed By: #### 1 9123-9, 72297-1 #### [facility] CLIA [id number] [address] [place], [place] [address] [place] Creatinine and Glomerular filtration rate.predicted panel (S/P/Bld) 40 mL/min/1.73m??? Low >=60 [facility] Comment on above: Order Comment: Speci men Type: BLOOD SPECIMEN Ordering Facility: [facility] Address: [address] [place] [address] Result Comment: Meredith mated Glomerular Filtration Rate [...] actual GFR. Performed By: #### 1 9123-9, 95799-0 #### [facility] CLIA [id number] [address] [place] [address] [place] Glucose [Mass/Vol] 189 mg/dL High 74-99 [facility] Comment on above: Order Comment: [place] Type: BLOOD SPECIMEN Ordering Facility: [facility] Address: [address] [place] [address] Result Comment: The [place] Diabetes Association (ADA) provides guidance for cutoff [...] Standards of Medical Care in Diabetes 2016, [place] Diabetes Association. Diabetes Care. 2016.39(Suppl 1). Performed By: #### 1 9123-9, 30703-4 #### [facility] CLIA [id number] [address] [place] [address] [place] Phosphate [Mass/Vol] 3.9 mg/dL Normal 2.7-4.8 [facility] Comment on above: Order Comment: [place] Type: BLOOD SPECIMEN Ordering Facility: [facility] Address: [address] [place] [address] Performed By: #### 1 9123-9, 22715-7 #### [facility] CLIA [id number] [address] [place] [address] [place] Potassium [Moles/Vol] 4.3 mmol/L Normal 3.7-5.1 [facility] Comment on above: Order Comment: [place] Type: BLOOD SPECIMEN Ordering Facility: [facility] Address: [address] [place] [address] Performed By: #### 1 9123-9, 92520-0 #### [facility] CLIA [id number] [address] [place] [address] [place] Sodium [Moles/Vol] 146 mmol/L High 136-144 [facility] Comment on above: Order Comment: Speci men Type: BLOOD SPECIMEN Ordering Facility: [facility] Address: [address] [place] [address] Performed By: #### 1 9123-9, 12212-9 #### [facility] CLIA [id number] [address] [place] [address] [place] Urea nitrogen [Mass/Vol] 48 mg/dL High 9-24 [facility] Comment on above: Order Comment: Speci men Type: BLOOD SPECIMEN Ordering Facility: [facility] Address: [address] [place] [address] Performed By: #### 1 9123-9, 06697-7 #### [facility] CLIA [id number] [place] ALLIED HEALTHon 10-25-2023 [facility] HNO ID: [id number] Author: CLARA HARDIN RT(Zarina) Service: Radiology Author [...] PATIENT PRESENTS WITH AN IMPLANTABLE OR ATTACHED PACK WORKER: No RADIOLOGY DEPARTMENT: General X-ray: Exam(s) Completed: Chest X-Ray PERIPHERAL IV DATA: Not applicable SIGNED BY: RT Raffy(R) October 25, 2023 4:[address] [facility] CASE MGT INIT ASSESon 2023 CASE MGT INIT [facility] HNO ID: [id number] Author: BUTCH WETZEL RN Service: ? 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 Facilities Attempted to Assist with AD Completion: Yes [...] TIME: 9:54 AM CONTACT #: [phone] Normal [facility] CBC W Auto Differential pane l (Bld)on 10-25-2023 Basophils (Bld) [#/Vol] 0.03 10*3/uL Normal <0.11 [facility] Comment on above: Order Comment: Speci men Type: BLOOD SPECIMEN Ordering Facility: [facility] Address: [address] [place] [address] Performed By: #### 1 9123-9, 95684-7 #### [facility] CLIA [id number] [address] [place] [address] [place] Basophils/100 WBC (Bld) 0.4 % Normal [facility] Comment on above: Order Comment: Speci men Type: BLOOD SPECIMEN Ordering Facility: [facility] Address: [address] [place] [address] Performed By: #### 1 239, 06628-6 #### [facility] CLIA [id number] [address] [place] [address] [place] Differential cell count method Nom (Bld) Auto Normal [facility] Comment on above: Order Comment: Speci men Type: BLOOD SPECIMEN Ordering Facility: [facility] Address: [address] [place] [address] Performed By: #### 1 91239, #### [facility] CLIA [id number] [address] [place] [address] [place] Eosinophils (Bld) [#/Vol] 0.22 10*3/uL Normal <0.46 [facility] Comment on above: Order Comment: Speci men Type: BLOOD SPECIMEN Ordering Facility: [facility] Address: [address] [place] [address] Performed By: #### 1 91239, #### [facility] CLIA [id number] [address] [place] [address] [place] Eosinophils/100 WBC (Bld) 2.9 % Normal [facility] Comment on above: Order Comment: Speci men Type: BLOOD SPECIMEN Ordering Facility: [facility] Address: [address] [place] [address] Performed By: #### 1 1923-9, 19119-9 #### [facility] CLIA [id number] [address] [place] [address] [place] Erythrocyte distribution width (RBC) [Ratio] 16.5 % High 11.5-15.0 [facility] Comment on above: Order Comment: Speci men Type: BLOOD SPECIMEN Ordering Facility: [facility] Address: [address] [place] [address] Performed By: #### 1 23, #### [facility] CLIA [id number] [address] [place] [address] [place] Hematocrit (Bld) [Volume fraction] 41.0 % Normal 39.0-51.0 [facility] Comment on above: Order Comment: Speci men Type: BLOOD SPECIMEN Ordering Facility: [facility] Address: [address] [place] [address] Performed By: #### 1 9123-04, #### [facility] CLIA [id number] [address] [place] [address] [place] Hemoglobin (Bld) [Mass/Vol] 12.1 g/dL Low 13.0-17.0 [facility] Comment on above: Order Comment: Speci men Type: BLOOD SPECIMEN Ordering Facility: [facility] Address: [address] [place] [address] Performed By: #### 1 9123-04, #### [facility] CLIA [id number] [address] [place] [address] [place] Immature granulocytes (Bld) [#/Vol] 0.04 10*3/uL Normal <0.10 [facility] Comment on above: Order Comment: Speci men Type: BLOOD SPECIMEN Ordering Facility: [facility] Address: [address] [place] [address] Performed By: #### 1 9123-04, #### [facility] CLIA [id number] [address] [place] [address] [place] Immature granulocytes/100 WBC (Bld) 0.5 % Normal [facility] Comment on above: Order Comment: Speci men Type: BLOOD SPECIMEN Ordering Facility: [facility] Address: [address] [place] [address] Performed By: #### 1 23, 95895-9 #### [facility] CLIA [id number] [address] [place] [address] [place] Lymphocytes (Bld) [#/Vol] 0.80 10*3/uL Low 1.00-4.00 [facility] Comment on above: Order Comment: Speci men Type: BLOOD SPECIMEN Ordering Facility: [facility] Address: [address] [place] [address] Performed By: #### 1 4223-9, #### [facility] CLIA [id number] [address] [place] [address] [place] Lymphocytes/100 WBC (Bld) 10.6 % Normal [facility] Comment on above: Order Comment: Speci men Type: BLOOD SPECIMEN Ordering Facility: [facility] Address: [address] [place] [address] Performed By: #### 1 92239, #### [facility] CLIA [id number] [address] [place] [address] [place] MCH (RBC) [Entitic mass] 26.8 pg Normal 26.0-34.0 [facility] Comment on above: Order Comment: Speci men Type: BLOOD SPECIMEN Ordering Facility: [facility] Address: [address] [place] [address] Performed By: #### 1 8023-9, #### [facility] CLIA [id number] [address] [place] [address] [place] MCHC (RBC) [Mass/Vol] 29.5 g/dL Low 30.5-36.0 [facility] Comment on above: Order Comment: Speci men Type: BLOOD SPECIMEN Ordering Facility: [facility] Address: [address] [place] [address] Performed By: #### 1 0723-9, #### [facility] CLIA [id number] [address] [place] [address] [place] MCV (RBC) [Entitic vol] 90.7 fL Normal 80.0-100.0 [facility] Comment on above: Order Comment: Speci men Type: BLOOD SPECIMEN Ordering Facility: [facility] Address: [address] [place] [address] Performed By: #### 1 2437-9, #### [facility] CLIA [id number] [address] [place] [address] [place] Monocytes (Bld) [#/Vol] 0.64 10*3/uL Normal <0.87 [facility] Comment on above: Order Comment: Speci men Type: BLOOD SPECIMEN Ordering Facility: [facility] Address: [address] [place] [address] Performed By: #### 1 23-9, #### [facility] CLIA [id number] [address] [place] [address] [place] Monocytes/100 WBC (Bld) 8.5 % Normal [facility] Comment on above: Order Comment: Speci men Type: BLOOD SPECIMEN Ordering Facility: [facility] Address: [address] [place] [address] Performed By: #### 1 91239, #### [facility] CLIA [id number] [address] [place] [address] [place] Neutrophils (Bld) [#/Vol] 5.80 10*3/uL Normal 1.45-7.50 [facility] Comment on above: Order Comment: Speci men Type: BLOOD SPECIMEN Ordering Facility: [facility] Address: [address] [place] [address] Performed By: #### 1 9123-9, #### [facility] CLIA [id number] [address] [place] [address] [place] Neutrophils/100 WBC (Bld) 77.1 % Normal [facility] Comment on above: Order Comment: Speci men Type: BLOOD SPECIMEN Ordering Facility: [facility] Address: [address] [place] [address] Performed By: #### 1 9123-9, 35939-4 #### [facility] CLIA [id number] [address] [place] [address] [place] Nucleated RBC (Bld) [#/Vol] 10*3/uL Normal <0.01 [facility] Comment on above: Order Comment: Speci men Type: BLOOD SPECIMEN Ordering Facility: [facility] Address: [address] [place] [address] Performed By: #### 1 9123-9, 46441-1 #### [facility] CLIA [id number] [address] [place] [address] [place] Nucleated RBC/100 WBC (Bld) [Ratio] 0.0 /100 WBC Normal [facility] Comment on above: Order Comment: Speci men Type: BLOOD SPECIMEN Ordering Facility: [facility] Address: [address] [place] [address] Performed By: #### 1 9123-9, 72390-2 #### [facility] CLIA [id number] [address] [place] [address] [place] Platelet mean volume (Bld) [Entitic vol] 8.6 fL Low 9.0-12.7 [facility] Comment on above: Order Comment: Speci men Type: BLOOD SPECIMEN Ordering Facility: [facility] Address: [address] [place] [address] Performed By: #### 1 9123-9, 62085-4 #### [facility] CLIA [id number] [address] [place] [address] [place] Platelets (Bld) [#/Vol] 235 10*3/uL Normal 150-400 [facility] Comment on above: Order Comment: Speci men Type: BLOOD SPECIMEN Ordering Facility: [facility] Address: [address] [place] [address] Performed By: #### 1 9123-9, 29601-9 #### [facility] CLIA [id number] [address] [place] [address] [place] RBC (Bld) [#/Vol] 4.52 10*6/uL Normal 4.20-6.00 [facility] Comment on above: Order Comment: Speci men Type: BLOOD SPECIMEN Ordering Facility: [facility] Address: [address] [place] [address] Performed By: #### 1 9123-9, 96831-1 #### [facility] CLIA [id number] [address] [place] [address] [place] WBC (Bld) [#/Vol] 7.53 10*3/uL Normal 3.70-11.00 [facility] Comment on above: Order Comment: Speci men Type: BLOOD SPECIMEN Ordering Facility: [facility] Address: [address] [place] [address] Performed By: #### 1 9123-9, 11471-4 #### [facility] CLIA [id number] [facility] ECHOon 10-25-2023 Echocardiography Echocardiography Report: Transthoracic Echo [facility] Date of service: 10/25/2023 2:47:07 PM Ordering physician: JUDI LOERA Indication: Chest Pain Symptom(s): Shortness of breath and Palpitations Technologist: Lizet Chacon [facility] Interpreting physician: Moisés Hassan MD PATIENT: Name: [...] * * Final * * * CC [employer] Medical Image : [id number] micsSISUID Normal [facility] Gas and Carbon monoxide pane l (BldV)on 10-25-2023 Base excess Calc (BldV) [Moles/Vol] 6 mmol/L High 0-2 [facility] Comment on above: Order Comment: Speci men Type: BLOOD SPECIMEN Ordering Facility: [facility] Address: [address] [place] [address] Performed By: #### P TTAC #### [facility] CLIA [id number] [address] [place] [address] [place] Body temperature 98.78 [degF] Normal [facility] Comment on above: Order Comment: Speci men Type: BLOOD SPECIMEN Ordering Facility: [facility] Address: [address] [place] [address] Performed By: #### P TTAC #### [facility] CLIA [id number] [address] [place] [address] [place] Calcium.ionized (Bld) [Mass/Vol] 1.15 mmol/L Normal 1.08-1.30 [facility] Comment on above: Order Comment: Speci men Type: BLOOD SPECIMEN Ordering Facility: [facility] Address: [address] [place] [address] Performed By: #### P TTAC #### [facility] CLIA [id number] [address] [place] [address] [place] Calcium.ionized adjusted to pH 7.4 (BldA) [Moles/Vol] 1.12 mmol/L Normal 1.08-1.30 [facility] Comment on above: Order Comment: Speci men Type: BLOOD SPECIMEN Ordering Facility: [facility] Address: [address] [place] [address] Performed By: #### P TTAC #### [facility] CLIA [id number] [address] [place] [address] [place] Carboxyhemoglobin (BldV) [Mass fraction] 2.7 % High 0.0-2.0 [facility] Comment on above: Order Comment: Speci men Type: BLOOD SPECIMEN Ordering Facility: [facility] Address: [address] [place] [address] Result Comment: Carb oxyhemoglobin Reference Range for Smokers: 2.0-8.0% Performed By: #### P TTAC #### [facility] CLIA [id number] [address] [place] [address] [place] Chloride [Moles/Vol] 105 mmol/L Normal 97-105 [facility] Comment on above: Order Comment: Speci men Type: BLOOD SPECIMEN Ordering Facility: [facility] Address: [address] [place] [address] Performed By: #### P TTAC #### [facility] CLIA [id number] [address] [place] [address] [place] CO2 (BldV) [Partial pressure] 61 mm[Hg] High 42-55 [facility] Comment on above: Order Comment: Speci men Type: BLOOD SPECIMEN Ordering Facility: [facility] Address: [address] [place] [address] Performed By: #### P TTAC #### [facility] CLIA [id number] [address] [place] [address] [place] CO2 adjusted to patient's actual temperature (BldV) [Partial pressure] Normal [facility] Comment on above: Order Comment: Speci men Type: BLOOD SPECIMEN Ordering Facility: [facility] Address: [address] [place] [address] Performed By: #### P TTAC #### [facility] CLIA [id number] [address] [place] [address] [place] FIO2 45 % Normal [facility] Comment on above: Order Comment: Speci men Type: BLOOD SPECIMEN Ordering Facility: [facility] Address: [address] [place] [address] Performed By: #### P TTAC #### [facility] CLIA [id number] [address] [place] [address] [place] Glucose [Mass/Vol] 152 mg/dL High 60-105 [facility] Comment on above: Order Comment: Speci men Type: BLOOD SPECIMEN Ordering Facility: [facility] Address: [address] [place] [address] Performed By: #### P TTAC #### [facility] CLIA [id number] [address] [place] [address] [place] HCO3 (Bld) [Moles/Vol] 33 mmol/L High 24-28 [facility] Comment on above: Order Comment: Speci men Type: BLOOD SPECIMEN Ordering Facility: [facility] Address: [address] [place] [address] Performed By: #### P TTAC #### [facility] CLIA [id number] [address] [place] [address] [place] Hematocrit (Bld) [Volume fraction] 38.3 % Low 39.0-51.0 [facility] Comment on above: Order Comment: Speci men Type: BLOOD SPECIMEN Ordering Facility: [facility] Address: [address] [place] [address] Performed By: #### P TTAC #### [facility] CLIA [id number] [address] [place] [address] [place] Hemoglobin (Bld) [Mass/Vol] 12.4 g/dL Low 13.0-17.0 [facility] Comment on above: Order Comment: Speci men Type: BLOOD SPECIMEN Ordering Facility: [facility] Address: [address] [place] [address] Performed By: #### P TTAC #### [facility] CLIA [id number] [address] [place] [address] [place] Lactate [Moles/Vol] 0.9 mmol/L Normal 0.5-2.2 [facility] Comment on above: Order Comment: Speci men Type: BLOOD SPECIMEN Ordering Facility: [facility] Address: [address] [place] [address] Performed By: #### P TTAC #### [facility] CLIA [id number] [address] [place] [address] [place] Methemoglobin (Bld) [Mass fraction] 1.2 % Normal 0.0-1.5 [facility] Comment on above: Order Comment: Speci men Type: BLOOD SPECIMEN Order[facility] Facility: [facility] Address: [address] [place] [address] Performed By: #### P TTAC #### [facility] CLIA [id number] [address] [place] [address] [place] O2 THERAPY Positive Normal [facility] Comment on above: Order Comment: Speci men Type: BLOOD SPECIMEN Ordering Facility: [facility] Address: [address] [place] [address] Performed By: #### P TTAC #### [facility] CLIA [id number] [address] [place] [address] [place] Oxygen (BldV) [Partial pressure] 107 mm[Hg] High 35-45 [facility] Comment on above: Order Comment: Speci men Type: BLOOD SPECIMEN Ordering Facility: [facility] Address: [address] [place] [address] Performed By: #### P TTAC #### [facility] CLIA [id number] [address] [place] [address] [place] Oxygen adjusted to patient's actual temperature (BldV) [Partial pressure] Normal [facility] Comment on above: Order Comment: Speci men Type: BLOOD SPECIMEN Ordering Facility: [facility] Address: [address] [place] [address] Performed By: #### P TTAC #### [facility] CLIA [id number] [address] [place] [address] [place] Oxygen saturation in Venous blood 98 % High 60-85 [facility] Comment on above: Order Comment: Speci men Type: BLOOD SPECIMEN Order[facility] Facility: [facility] Address: [address] [place] [address] Performed By: #### P TTAC #### [facility] CLIA [id number] [address] [place] [address] [place] Oxyhemoglobin (BldV) [Mass fraction] 94 % High 60-85 [facility] Comment on above: Order Comment: Speci men Type: BLOOD SPECIMEN Ordering Facility: [facility] Address: [address] [place] [address] Performed By: #### P TTAC #### [facility] CLIA [id number] [address] [place] [address] [place] pH (BldV) 7.35 [pH] Normal 7.32-7.42 [facility] Comment on above: Order Comment: Speci men Type: BLOOD SPECIMEN Ordering Facility: [facility] Address: [address] [place] [address] Performed By: #### P TTAC #### [facility] CLIA [id number] [address] [place] [address] [place] pH adjusted to patient's actual temperature (BldV) Normal [facility] Comment on above: Order Comment: [place] Type: BLOOD SPECIMEN Ordering Facility: [facility] Address: [address] [place] [address] Performed By: #### P TTAC #### [facility] CLIA [id number] [address] [place] [address] [place] Potassium [Moles/Vol] 4.1 mmol/L Normal 3.5-5.0 [facility] Comment on above: Order Comment: Kentoni men Type: BLOOD SPECIMEN Ordering Facility: [facility] Address: [address] [place] [address] Performed By: #### P TTAC #### [facility] CLIA [id number] [address] [place] [address] [place] Sodium [Moles/Vol] 140 mmol/L Normal 136-144 [facility] Comment on above: Order Comment: [place] Type: BLOOD SPECIMEN Ordering Facility: [facility] Address: [address] [place] [address] Performed By: #### P TTAC #### [facility] CLIA [id number] [address] [place] [address] [place] HISTORY PHYSICALon HISTORY PHYSICAL HNO ID: [id number] Author: ANUPAMA ALFRED MD Service: Critical Care Author Type: Nurse Practitioner Type: H&P Filed: 10/25/2023 03:12 Note Text: Attestation signed by Anupama Alfred MD at 10/25/2023 3:12 AM [facility] STAFF PHYSICIAN NOTE OF PERSONAL INVOLVEMENT IN [...] of brielle (more content not included)... Normal [facility] Lipid 1996 panelon 4 Cholesterol [Mass/Vol] 104 mg/dL Normal <200 [facility] Comment on above: Order Comment: [place] Type: BLOOD SPECIMEN Ordering Facility: [facility] Address: [address] [place] [address] Result Comment: <200 mg/dL, Desirable 200-239 mg/dL, Borderline high >239 mg/dL, High Performed By: #### 1 9123-9, 80094-1 #### [facility] CLIA [id number] [address] [place] [address] [place] [facility] Cholesterol in HDL [Mass/Vol] 61 mg/dL Normal >39 [facility] Comment on above: Order Comment: [place] Type: BLOOD SPECIMEN Ordering Facility: [facility] Address: [address] [place] [address] Result Comment: 40-5 9 mg/dL, Acceptable >59 mg/dL, High: Negative risk factor for coronary heart disease <40 mg/dL, Low: Positive risk factor for coronary heart disease Performed By: #### 1 9123-9, 31918-4 #### [facility] CLIA [id number] [address] [place] [address] [place] Cholesterol in LDL [Mass/Vol] 33 mg/dL Normal <100 [facility] Comment on above: Order Comment: [place] Type: BLOOD SPECIMEN Ordering Facility: [facility] Address: [address] [place] [address] Result Comment: <100 mg/dL, Optimal 100-129 mg/dL, Near optimal/above optimal 130-159 mg/dL, Borderline high 160-189 mg/dL, High >189 mg/dL, Very high Secondary prevention optimal LDL Cholesterol levels are recommended to be < 70 mg/dL Performed By: #### 1 91239, 77168-1 #### [facility] CLIA [id number] [address] [place] [address] [place] Cholesterol in LDL/Cholesterol in HDL [Mass ratio] 0.54 {ratio} Normal <2.54 [facility] Comment on above: Order Comment: [place] Type: BLOOD SPECIMEN Ordering Facility: [facility] Address: [facility] [place] [address] Result Comment: Shayna huertas: 1. National Cholesterol Education Program ATP III Guideline At-A-Glance Quick Desk Reference: National Heart, Lung, and Blood [place]. National Institutes of Health. 2001: NIH Publication No. 01-3305. 2. An International Atherosclerosis Society position paper: global recommendations for the management of dyslipidemia: executive summary, Atherosclerosis. 2014: 232(2):410-413. Performed By: #### 1 9123-9, #### [facility] CLIA [id number] [address] [place] [address] Cholesterol in VLDL [Mass/Vol] 10 mg/dL Normal <30 [facility] Comment on above: Order Comment: Madonna chapis Type: BLOOD SPECIMEN Ordering Facility: [facility] Address: [address] [place] [address] Performed By: #### 1 9123-9, #### [facility] CLIA [id number] [address] [place] [address] [place] Cholesterol non HDL [Mass/Vol] 43 mg/dL Normal <130 [facility] Comment on above: Order Comment: [place] Type: BLOOD SPECIMEN Ordering Facility: [facility] Address: [address] [place] [address] Result Comment: <130 mg/dL, Optimal 130-159 mg/dL, Near optimal/above optimal 160-189 mg/dL, Borderline high 190-219 mg/dL, High >219 mg/dL, Very high Secondary prevention optimal non HDL Cholesterol levels are recommended to be <100 mg/dL Performed By: #### 1 9123-9, 54090-7 #### [facility] CLIA [id number] [address] [place] [address] [facility] Cholesterol.total/Ch olesterol in HDL [Mass ratio] 1.70 {ratio} Normal <5.10 [facility] Comment on above: Order Comment: Speci men Type: BLOOD SPECIMEN Ordering Facility: [facility] Address: [address] [place] [address] Performed By: #### 1 9123-9, 36242-7 #### [facility] CLIA [id number] [address] [place] [address] [place] [facility] FASTING TIME 12 hrs Normal [facility] Comment on above: Order Comment: Speci men Type: BLOOD SPECIMEN Ordering Facility: [facility] Address: [address] [place] [address] Performed By: #### 1 9123-9, 16140-8 #### [facility] CLIA [id number] [address] [place] [address] [place] Triglyceride [Mass/Vol] 52 mg/dL Normal <150 [facility] Comment on above: Order Comment: Speci men Type: BLOOD SPECIMEN Ordering Facility: [facility] Address: [address] [place] [address] Result Comment: <150 mg/dL, Normal 150-199 mg/dL, Borderline high 200-499 mg/dL, High >499 mg/dL, Very high Performed By: #### 1 9123-9, 90856-1 #### [facility] CLIA [id number] [address] [place] [address] [place] Magnesium SerPl-mCncon 10-24 Magnesium [Mass/Vol] 2.0 mg/dL Normal 1.7-2.3 [facility] Comment on above: Order Comment: Speci men Type: BLOOD SPECIMEN Ordering Facility: [facility] Address: [address] [place] [address] Performed By: #### 1 9123-9, 36591-5 #### [facility] CLIA [id number] [address] [place] [address] [place] Renal function 2000 panelon 10-25-2023 Albumin [Mass/Vol] 3.4 g/dL Low 3.9-4.9 [facility] Comment on above: Order Comment: Speci men Type: BLOOD SPECIMEN Ordering Facility: [facility] Address: [address] [place] [address] Performed By: #### 1 5923-9, 21824-7 #### [facility] CLIA [id number] [address] [place] [address] [place] Anion gap [Moles/Vol] 10 mmol/L Normal 9-18 [facility] Comment on above: Order Comment: Speci men Type: BLOOD SPECIMEN Ordering Facility: [facility] Address: [address] [place] [address] Performed By: #### 1 9123-9, 81968-7 #### [facility] CLIA [id number] [address] [place] [address] [place] Calcium [Mass/Vol] 9.1 mg/dL Normal 8.5-10.2 [facility] Comment on above: Order Comment: Speci men Type: BLOOD SPECIMEN Ordering Facility: [facility] Address: [address] [place] [address] Performed By: #### 1 239, #### [facility] CLIA [id number] [address] [place] [address] [place] Chloride [Moles/Vol] 102 mmol/L Normal 97-105 [facility] Comment on above: Order Comment: Speci men Type: BLOOD SPECIMEN Ordering Facility: [facility] Address: [address] [place] [address] Performed By: #### 1 05239, #### [facility] CLIA [id number] [address] [place] [address] [place] CO2 [Moles/Vol] 31 mmol/L High 22-30 [facility] Comment on above: Order Comment: Speci men Type: BLOOD SPECIMEN Ordering Facility: [facility] Address: [address] [place] [address] Performed By: #### 1 0523-9, 42625-4 #### [facility] CLIA [id number] [address] [place] [address] [place] Creatinine [Mass/Vol] 1.89 mg/dL High 0.73-1.22 [facility] Comment on above: Order Comment: [place] Type: BLOOD SPECIMEN Ordering Facility: [facility] Address: [address] [facility] [place] [address] Performed By: #### 1 9123-9, 89565-2 #### [facility] CLIA [id number] [address] [place] [address] [place] Creatinine and Glomerular filtration rate.predicted panel (S/P/Bld) 39 mL/min/1.73m??? Low >=60 [facility] Comment on above: Order Comment: [place] Type: BLOOD SPECIMEN Ordering Facility: [facility] Address: [address] [place] [address] Result Comment: Meredith mated Glomerular Filtration Rate [...] actual GFR. Performed By: #### 1 9123-9, 09334-3 #### [facility] CLIA [id number] [address] [place] [address] [place] Glucose [Mass/Vol] 149 mg/dL High 74-99 [facility] Comment on above: Order Comment: [place] Type: BLOOD SPECIMEN Ordering Facility: [facility] Address: [address] [place] [address] Result Comment: The [place] Diabetes Association (ADA) provides guidance for cutoff [...] Standards of Medical Care in Diabetes 2016, [place] Diabetes [employer]. Diabetes Care. 2016.39(Suppl 1). Performed By: #### 1 9123-9, 13194-9 #### [facility] CLIA [id number] [address] [place] [address] [place] Phosphate [Mass/Vol] 4.4 mg/dL Normal 2.7-4.8 [facility] Comment on above: Order Comment: Speci men Type: BLOOD SPECIMEN Ordering Facility: [facility] Address: [address] [place] [address] Performed By: #### 1 9123-9, 74328-2 #### [facility] CLIA [id number] [address] [place] [address] [place] Potassium [Moles/Vol] 4.3 mmol/L Normal 3.7-5.1 [facility] Comment on above: Order Comment: Speci men Type: BLOOD SPECIMEN Ordering Facility: [facility] Address: [address] [place] [address] Performed By: #### 1 9123-9, 88552-1 #### [facility] CLIA [id number] [address] [place] [address] [place] Sodium [Moles/Vol] 143 mmol/L Normal 136-144 [facility] Comment on above: Order Comment: Speci men Type: BLOOD SPECIMEN Ordering Facility: [facility] Address: [address] [place] [address] Performed By: #### 1 9123-9, 06775-1 #### [facility] CLIA [id number] [address] [place] [address] [place] Urea nitrogen [Mass/Vol] 54 mg/dL High 9-24 [facility] Comment on above: Order Comment: Speci men Type: BLOOD SPECIMEN Ordering Facility: [facility] Address: [address] [place] [address] Performed By: #### 1 9123-9, 19111-6 #### [facility] CLIA [id number] [address] [place] [address] [place] STAPH AUREUS PCRon 4 S. aureus and MRSA panel ERIBERTO+probe (Nose) Normal Negative [facility] Comment on above: Order Comment: Speci men Type: SWAB OF INTERNAL NOSEOrdering Facility: [facility] Address: [address] [place] [address] Result Comment: Nega tive for Staphylococcus aureus by PCR. Negative for MRSA by PCR Performed By: #### S APCR ####[facility] [id number] [address] [address] [place] XR CHEST 1V [...] left pleural effusion demonstrating slight interval progression. Reduction Plant Supervisor: SAM Transcribe Date/Time: Oct 25 2023 7:29A Dictated by : KASHIF PIERSON MD This examination was interpreted and the report reviewed and electronically signed by: KASHIF PIERSON MD on Oct 25 2023 7:30AM EST [id number] Normal [facility] ALLIED HEALTHon 10-24-2023 ALLIED HEALTH HNO ID: [id number] Author: ABDIFATAH PAGE RDMS Service: Radiology Author [...] PATIENT PRESENTS WITH AN IMPLANTABLE OR ATTACHED PACK WORKER: No RADIOLOGY DEPARTMENT: Ultrasound PERIPHERAL IV DATA: Not applicable SIGNED BY: Abdifatah Page RDMS October 24, 2023 4:59 PM Normal [facility] ARTERIAL BLOOD GASESon 10-23 Base excess Calc (Bld) [Moles/Vol] 6 mmol/L High 0-2 [facility] Comment on above: Order Comment: [place] Type: BLOOD SPECIMEN Ordering Facility: [facility] Address: [address] [place] [address] Performed By: #### 1 9123-9, 63583-8 #### [facility] CLIA [id number] [address] [place] [address] [place] Body temperature 98.6 [degF] Normal [facility] Comment on above: Order Comment: [place] Type: BLOOD SPECIMEN Ordering Facility: [facility] Address: [address] [place] [address] Performed By: #### 1 4623-9, 39384-2 #### [facility] CLIA [id number] [address] [place] [address] [place] Calcium.ionized (Bld) [Mass/Vol] 1.23 mmol/L Normal 1.08-1.30 [facility] Comment on above: Order Comment: Kentoni chapis Type: BLOOD SPECIMEN Ordering Facility: [facility] Address: [address] [place] [address] Performed By: #### 1 1723-9, 74510-5 #### [facility] CLIA [id number] [address] [place] [address] [place] Calcium.ionized adjusted to pH 7.4 (BldA) [Moles/Vol] 1.16 mmol/L Normal 1.08-1.30 [facility] Comment on above: Order Comment: [place] Type: BLOOD SPECIMEN Ordering Facility: [facility] Address: [address] [place] [address] Performed By: #### 1 9123-9, 62272-6 #### [facility] CLIA [id number] [address] [place] [address] [place] Carboxyhemoglobin (BldA) [Mass fraction] 1.3 % Normal 0.0-2.0 [facility] Comment on above: Order Comment: Speci men Type: BLOOD SPECIMEN Ordering Facility: [facility] Address: [address] [place] [address] Result Comment: Carb oxyhemoglobin Reference Range for Smokers: 2.0-8.0% Performed By: #### 1 9123-9, 94835-8 #### [facility] CLIA [id number] [address] [place] [address] [place] Chloride [Moles/Vol] 104 mmol/L Normal 97-105 [facility] Comment on above: Order Comment: Speci men Type: BLOOD SPECIMEN Ordering Facility: [facility] Address: [address] [place] [address] Performed By: #### 1 9123-9, 39125-9 #### [facility] CLIA [id number] [address] [place] [address] [place] CO2 (Bld) [Partial pressure] 72 mm Hg High 36-46 [facility] Comment on above: Order Comment: Speci men Type: BLOOD SPECIMEN Ordering Facility: [facility] Address: [address] [place] [address] Performed By: #### 1 9123-9, 22167-5 #### [facility] CLIA [id number] [address] [place] [address] [place] Glucose [Mass/Vol] 88 mg/dL Normal 60-105 [facility] Comment on above: Order Comment: Speci men Type: BLOOD SPECIMEN Ordering Facility: [facility] Address: [address] [place] [address] Performed By: #### 1 9123-9, 40775-2 #### [facility] CLIA [id number] [address] [place] [address] [place] HCO3 (Bld) [Moles/Vol] 34 mmol/L High 22-26 [facility] Comment on above: Order Comment: Speci men Type: BLOOD SPECIMEN Ordering Facility: [facility] Address: [address] [place] [address] Performed By: #### 1 9123-9, 90261-8 #### [facility] CLIA [id number] [address] [place] [address] [place] Hematocrit (Bld) [Volume fraction] 38.4 % Low 39.0-51.0 [facility] Comment on above: Order Comment: Speci men Type: BLOOD SPECIMEN Ordering Facility: [facility] Address: [address] [place] [address] Performed By: #### 1 91239, 97632-5 #### [facility] CLIA [id number] [address] [place] [address] [place] Hemoglobin (Bld) [Mass/Vol] 12.5 g/dL Low 13.0-17.0 [facility] Comment on above: Order Comment: Speci men Type: BLOOD SPECIMEN Ordering Facility: [facility] Address: [address] [place] [address] Performed By: #### 1 9123-9, 24003-2 #### [facility] CLIA [id number] [address] [place] [address] [place] Lactate [Moles/Vol] 0.9 mmol/L Normal 0.5-2.2 [facility] Comment on above: Order Comment: Speci men Type: BLOOD SPECIMEN Ordering Facility: [facility] Address: [address] [place] [address] Performed By: #### 1 9123-9, 13335-8 #### [facility] CLIA [id number] [address] [place] [address] [place] LITERS 4 Liters/min Normal [facility] Comment on above: Order Comment: Speci men Type: BLOOD SPECIMEN Ordering Facility: [facility] Address: [address] [place] [address] Performed By: #### 1 24239, 81948-8 #### [facility] CLIA [id number] [address] [place] [address] [place] Methemoglobin (Bld) [Mass fraction] 1.3 % Normal 0.0-1.5 [facility] Comment on above: Order Comment: Speci men Type: BLOOD SPECIMEN Ordering Facility: [facility] Address: [address] [place] [address] Performed By: #### 1 9123-9, 27400-6 #### [facility] CLIA [id number] [address] [place] [address] [place] O2 THERAPY NC = Nasal Cannula Normal [facility] Comment on above: Order Comment: Speci men Type: BLOOD SPECIMEN Ordering Facility: [facility] Address: [address] [place] [address] Performed By: #### 1 9123-9, 62485-1 #### [facility] CLIA [id number] [address] [place] [address] [place] Oxygen (Bld) [Partial pressure] 73 mm Hg Low 85-95 [facility] Comment on above: Order Comment: Speci men Type: BLOOD SPECIMEN Ordering Facility: [facility] Address: [address] [place] [address] Performed By: #### 1 9123-9, 30404-1 #### [facility] CLIA [id number] [address] [place] [address] [place] Oxyhemoglobin (BldA) [Mass fraction] 91 % Low 95-98 [facility] Comment on above: Order Comment: Speci men Type: BLOOD SPECIMEN Ordering Facility: [facility] Address: [address] [place] [address] Performed By: #### 1 9123-9, 03110-5 #### [facility] CLIA [id number] [address] [place] [address] [place] pH (Bld) 7.30 [pH] Low 7.35-7.45 [facility] Comment on above: Order Comment: Speci men Type: BLOOD SPECIMEN Ordering Facility: [facility] Address: [address] [place] [address] Performed By: #### 1 9123-9, 26453-6 #### [facility] CLIA [id number] [address] [place] [address] [place] Potassium [Moles/Vol] 4.2 mmol/L Normal 3.5-5.0 [facility] Comment on above: Order Comment: Speci men Type: BLOOD SPECIMEN Ordering Facility: [facility] Address: [address] [place] [address] Performed By: #### 1 9123-9, 67734-8 #### [facility] CLIA [id number] [address] [place] [address] [place] Sodium [Moles/Vol] 141 mmol/L Normal 136-144 [facility] Comment on above: Order Comment: Speci men Type: BLOOD SPECIMEN Ordering Facility: [facility] Address: [address] [place] [address] Performed By: #### 1 9123-9, 44183-5 #### [facility] CLIA [id number] [address] [place] [address] [place] Base excess Calc (Bld) [Moles/Vol] 5 mmol/L High 0-2 [facility] Comment on above: Order Comment: Speci men Type: BLOOD SPECIMEN Ordering Facility: [facility] Address: [address] [place] [address] Performed By: #### P TTAC #### [facility] CLIA [id number] [address] [place] [address] [place] Body temperature 98.6 [degF] Normal [facility] Comment on above: Order Comment: Speci men Type: BLOOD SPECIMEN Ordering Facility: [facility] Address: [address] [place] [address] Performed By: #### P TTAC #### [facility] CLIA [id number] [address] [place] [address] [place] Calcium.ionized (Bld) [Mass/Vol] 1.22 mmol/L Normal 1.08-1.30 [facility] Comment on above: Order Comment: Speci men Type: BLOOD SPECIMEN Ordering Facility: [facility] Address: [address] [place] [address] Performed By: #### P TTAC #### [facility] CLIA [id number] [address] [place] [address] [place] Calcium.ionized adjusted to pH 7.4 (BldA) [Moles/Vol] 1.15 mmol/L Normal 1.08-1.30 [facility] Comment on above: Order Comment: Speci men Type: BLOOD SPECIMEN Ordering Facility: [facility] Address: [address] [place] [address] Performed By: #### P TTAC #### [facility] CLIA [id number] [address] [place] [address] [place] Carboxyhemoglobin (BldA) [Mass fraction] 1.7 % Normal 0.0-2.0 [facility] Comment on above: Order Comment: Speci men Type: BLOOD SPECIMEN Ordering Facility: [facility] Address: [address] [place] [address] Result Comment: Carb oxyhemoglobin Reference Range for Smokers: 2.0-8.0% Performed By: #### P TTAC #### [facility] CLIA [id number] [address] [place] [address] [place] Chloride [Moles/Vol] 101 mmol/L Normal 97-105 [facility] Comment on above: Order Comment: Speci men Type: BLOOD SPECIMEN Ordering Facility: [facility] Address: [address] [place] [address] Performed By: #### P TTAC #### [facility] CLIA [id number] [address] [place] [address] [place] CO2 (Bld) [Partial pressure] 70 mm Hg High 36-46 [facility] Comment on above: Order Comment: Speci men Type: BLOOD SPECIMEN Ordering Facility: [facility] Address: [address] [place] [address] Performed By: #### P TTAC #### [facility] CLIA [id number] [address] [place] [address] [place] Glucose [Mass/Vol] 210 mg/dL High 60-105 [facility] Comment on above: Order Comment: Speci men Type: BLOOD SPECIMEN Ordering Facility: [facility] Address: [address] [place] [address] Performed By: #### P TTAC #### [facility] CLIA [id number] [address] [place] [address] [place] HCO3 (Bld) [Moles/Vol] 34 mmol/L High 22-26 [facility] Comment on above: Order Comment: Speci men Type: BLOOD SPECIMEN Ordering Facility: [facility] Address: [address] [place] [address] Performed By: #### P TTAC #### [facility] CLIA [id number] [address] [place] [address] [place] Hematocrit (Bld) [Volume fraction] 37.5 % Low 39.0-51.0 [facility] Comment on above: Order Comment: Speci men Type: BLOOD SPECIMEN Ordering Facility: [facility] Address: [address] [place] [address] Performed By: #### P TTAC #### [facility] CLIA [id number] [address] [place] [address] [place] Hemoglobin (Bld) [Mass/Vol] 12.2 g/dL Low 13.0-17.0 [facility] Comment on above: Order Comment: Speci men Type: BLOOD SPECIMEN Ordering Facility: [facility] Address: [address] [place] [address] Performed By: #### P TTAC #### [facility] CLIA [id number] [address] [place] [address] [place] Lactate [Moles/Vol] 1.4 mmol/L Normal 0.5-2.2 [facility] Comment on above: Order Comment: Speci men Type: BLOOD SPECIMEN Ordering Facility: [facility] Address: [address] [place] [address] Performed By: #### P TTAC #### [facility] CLIA [id number] [address] [place] [address] [place] LITERS 6 Liters/min Normal [facility] Comment on above: Order Comment: Speci men Type: BLOOD SPECIMEN Ordering Facility: [facility] Address: [address] [place] [address] Performed By: #### P TTAC #### [facility] CLIA [id number] [address] [place] [address] [place] Methemoglobin (Bld) [Mass fraction] 0.7 % Normal 0.0-1.5 [facility] Comment on above: Order Comment: Speci men Type: BLOOD SPECIMEN Ordering Facility: [facility] Address: [address] [place] [address] Performed By: #### P TTAC #### [facility] CLIA [id number] [address] [place] [address] [place] O2 THERAPY NC = Nasal Cannula Normal [facility] Comment on above: Order Comment: Speci men Type: BLOOD SPECIMEN Ordering Facility: [facility] Address: [address] [place] [address] Performed By: #### P TTAC #### [facility] IA [id number] [address] [place] [address] [place] Oxygen (Bld) [Partial pressure] 85 mm Hg Normal 85-95 [facility] Comment on above: Order Comment: Speci men Type: BLOOD SPECIMEN Ordering Facility: [facility] Address: [address] [place] [address] Performed By: #### P TTAC #### [facility] CLIA [id number] [address] [place] [address] [place] Oxyhemoglobin (BldA) [Mass fraction] 94 % Low 95-98 [facility] Comment on above: Order Comment: Speci men Type: BLOOD SPECIMEN Ordering Facility: [facility] Address: [address] [place] [address] Performed By: #### P TTAC #### [facility] CLIA [id number] [address] [place] [address] [place] pH (Bld) 7.30 [pH] Low 7.35-7.45 [facility] Comment on above: Order Comment: Speci men Type: BLOOD SPECIMEN Ordering Facility: [facility] Address: [address] [place] [address] Performed By: #### P TTAC #### [facility] CLIA [id number] [address] [place] [address] [place] Potassium [Moles/Vol] 4.0 mmol/L Normal 3.5-5.0 [facility] Comment on above: Order Comment: Speci men Type: BLOOD SPECIMEN Ordering Facility: [facility] Address: [address] [place] [address] Performed By: #### P TTAC #### [facility] CLIA [id number] [address] [place] [address] [place] Sodium [Moles/Vol] 141 mmol/L Normal 136-144 [facility] Comment on above: Order Comment: Speci men Type: BLOOD SPECIMEN Ordering Facility: [facility] Address: [address] [place] [address] Performed By: #### P TTAC #### [facility] CLIA [id number] [address] [place] [address] [place] Bacteria Ur Culton [...] technique or straight catheterization for???urine???collect ion. Normal [facility] Comment on above: Performed By: #### 6 30-4 ####[facility] [id number] [facility] [place] [address] [place] Basic metabolic 2000 panelon 10-24-2023 Anion gap [Moles/Vol] 11 mmol/L Normal 9-18 [facility] Comment on above: Order Comment: Speci men Type: BLOOD SPECIMEN Ordering Facility: [facility] Address: [address] [place] [address] Performed By: #### 2 4321-2, HSTNT #### [facility] CLIA [id number] [place] [address] [place] Calcium [Mass/Vol] 8.7 mg/dL Normal 8.5-10.2 [facility] Comment on above: Order Comment: Speci men Type: BLOOD SPECIMEN Ordering Facility: [facility] Address: [address] [place] [address] Performed By: #### 2 4321-2, HSTNT #### [facility] CLIA [id number] [address] [place] [address] [place] Chloride [Moles/Vol] 101 mmol/L Normal 97-105 [facility] Comment on above: Order Comment: Speci men Type: BLOOD SPECIMEN Ordering Facility: [facility] Address: [address] [place] [address] Performed By: #### 2 4321-2, HSTNT #### [facility] CLIA [id number] [address] [place] [address] [place] CO2 [Moles/Vol] 30 mmol/L Normal 22-30 [facility] Comment on above: Order Comment: Speci men Type: BLOOD SPECIMEN Ordering Facility: [facility] Address: [address] [place] [address] Performed By: #### 2 4321-2, HSTNT #### [facility] CLIA [id number] [address] [place] [address] [place] Creatinine [Mass/Vol] 1.82 mg/dL High 0.73-1.22 [facility] Comment on above: Order Comment: Speci men Type: BLOOD SPECIMEN Ordering Facility: [facility] Address: [address] [place] [address] Performed By: #### 2 4321-2, HSTNT #### [facility] CLIA [id number] [address] [place] [address] [place] Creatinine and Glomerular filtration rate.predicted panel (S/P/Bld) 41 mL/min/1.73m??? Low >=60 [facility] Comment on above: Order Comment: Speci men Type: BLOOD SPECIMEN Ordering Facility: [facility] Address: [address] [place] [address] Result Comment: Meredith mated Glomerular Filtration Rate [...] Performed By: #### 2 4321-2, HSTNT #### [facility] CLIA [id number] [address] [place] [address] [place] Glucose [Mass/Vol] 229 mg/dL High 74-99 [facility] Comment on above: Order Comment: [place] Type: BLOOD SPECIMEN Ordering Facility: [facility] Address: [address] [place] [address] Result Comment: The [place] Diabetes [employer] (ADA) provides guidance for cutoff [...] Standards of Medical Care in Diabetes 2016, [place] [employer]. Diabetes Care. 2016.39(Suppl 1). Performed By: #### 2 4321-2, HSTNT #### [facility] CLIA [id number] [address] [place] [address] [place] Potassium [Moles/Vol] 4.2 mmol/L Normal 3.7-5.1 [facility] Comment on above: Order Comment: [place] Type: BLOOD SPECIMEN Ordering Facility: [facility] Address: [address] [place] [address] Performed By: #### 2 4321-2, HSTNT #### [facility] CLIA [id number] [address] [place] [address] [place] Sodium [Moles/Vol] 142 mmol/L Normal 136-144 [facility] Comment on above: Order Comment: Speci men Type: BLOOD SPECIMEN Ordering Facility: [facility] Address: [address] [place] [address] Performed By: #### 2 4321-2, HSTNT #### [facility] CLIA [id number] [place] [address] [place] Urea nitrogen [Mass/Vol] 58 mg/dL High 9-24 [facility] Comment on above: Order Comment: Speci men Type: BLOOD SPECIMEN Ordering Facility: [facility] Address: [address] [place] [address] Performed By: #### 2 4321-2, HSTNT #### [facility] CLIA [id number] [address] [place] [address] [place] CBC panel Auto (Bld)on 10-23 Erythrocyte distribution width (RBC) [Ratio] 16.4 % High 11.5-15.0 [facility] Comment on above: Order Comment: Speci men Type: BLOOD SPECIMEN Ordering Facility: [facility] Address: [address] [place] [address] Performed By: #### 1 9123-9, 83301-4 #### [facility] CLIA [id number] [address] [place] [address] [place] Hematocrit (Bld) [Volume fraction] 41.0 % Normal 39.0-51.0 [facility] Comment on above: Order Comment: Speci men Type: BLOOD SPECIMEN Ordering Facility: [facility] Address: [address] [place] [address] Performed By: #### 1 9123-9, 59826-0 #### [facility] CLIA [id number] [address] [place] [address] [place] Hemoglobin (Bld) [Mass/Vol] 12.4 g/dL Low 13.0-17.0 [facility] Comment on above: Order Comment: Speci men Type: BLOOD SPECIMEN Ordering Facility: [facility] Address: [address] [place] [address] Performed By: #### 1 9123-9, #### [facility] CLIA [id number] [address] [place] [address] [place] MCH (RBC) [Entitic mass] 26.9 pg Normal 26.0-34.0 [facility] Comment on above: Order Comment: Speci men Type: BLOOD SPECIMEN Ordering Facility: [facility] Address: [address] [place] [address] Performed By: #### 1 9123-04, #### [facility] CLIA [id number] [address] [place] [address] [place] MCHC (RBC) [Mass/Vol] 30.2 g/dL Low 30.5-36.0 [facility] Comment on above: Order Comment: Speci men Type: BLOOD SPECIMEN Ordering Facility: [facility] Address: [address] [place] [address] Performed By: #### 1 9123-04, #### [facility] CLIA [id number] [address] [place] [address] [place] MCV (RBC) [Entitic vol] 88.9 fL Normal 80.0-100.0 [facility] Comment on above: Order Comment: Speci men Type: BLOOD SPECIMEN Ordering Facility: [facility] Address: [address] [place] [address] Performed By: #### 1 23, #### [facility] CLIA [id number] [address] [place] [address] [place] Nucleated RBC (Bld) [#/Vol] 10*3/uL Normal <0.01 [facility] Comment on above: Order Comment: Speci men Type: BLOOD SPECIMEN Ordering Facility: [facility] Address: [address] [place] [address] Performed By: #### 1 91239, #### [facility] CLIA [id number] [address] [place] [address] [place] Platelet mean volume (Bld) [Entitic vol] 8.8 fL Low 9.0-12.7 [facility] Comment on above: Order Comment: Speci men Type: BLOOD SPECIMEN Ordering Facility: [facility] Address: [address] [place] [address] Performed By: #### 1 9123-9, 82271-9 #### [facility] CLIA [id number] [address] [place] [address] [place] Platelets (Bld) [#/Vol] 240 10*3/uL Normal 150-400 [facility] Comment on above: Order Comment: Speci men Type: BLOOD SPECIMEN Ordering Facility: [facility] Address: [address] [place] [address] Performed By: #### 1 9123-9, 49752-6 #### [facility] CLIA [id number] [address] [place] [address] [place] RBC (Bld) [#/Vol] 4.61 10*6/uL Normal 4.20-6.00 [facility] Comment on above: Order Comment: Speci men Type: BLOOD SPECIMEN Ordering Facility: [facility] Address: [address] [place] [address] Performed By: #### 1 9123-9, 51177-1 #### [facility] CLIA [id number] [address] [place] [address] [place] WBC (Bld) [#/Vol] 7.15 10*3/uL Normal 3.70-11.00 [facility] Comment on above: Order Comment: Speci men Type: BLOOD SPECIMEN Ordering Facility: [facility] Address: [address] [place] [address] Performed By: #### 1 9123-9, 80084-3 #### [facility] CLIA [id number] [address] [place] [address] [place] CONSULTon 10-24-2023 CONSULT HNO ID: [id number] Author: NAUN COUCH MD Service: Nephrology Author [...] amputation admitted from home who presented to [facility] with complaints of worsening shortness of breath, bilateral lower extremity edema and ~ 10lb weight gain in the last few weeks. Patient reports multiple hospital admissions in 2023 at [facility] in [place] for fluid overload. He states he usually [...] MEALS AND HS (more content not included)... [facility] CONSULT HNO ID: [id number] Author: FLOR BE RN Service: ? Author [...] foot. Patient goes to wound clinic in [place] for care last dressing used was Temi. Left foot Transmetatarsal amputation healed. Right foot [...] 10/24/2023 9:38 AM Wound Image Site Assessment Red;[place] Nora-Wound Assessment Calloused Shape oval Wound Length [...] Review under the Scanned Docs tab in [employer]. The purpose of the photo(s) is to optimize the patient's medical care and allow (more content not included)... Normal [facility] CONSULT HNO ID: [id number] Author: NERY MOTTA MD Service: Cardiovascular Medicine Author Type: Physician Type: Consults Filed: 10/24/2023 17:43 Note Text: [facility] CARDI[facility]ASCULAR [facility]ICINE CONSULT NOTE (Template ID [id number]) Nicole Lora [id number] PRIMARY SERVICE: Internal Medicine CONSULTING SERVICE: Cardiovascular Medicine: General Consults DATE OF ADMISSION: 10/23/2023 DATE OF CONSULT: 10/24/2023 REASON FOR CONSULT Elevated troponins HISTORY OF PRESENT ILLNESS Nicole Lora is a 63 year old male PMH of CKD 3, chronic respiratory failure, morbid obesity, insulin dependent diabetes, TC, Asthma, left forefoot amputation, lives in [place], who was admitted for volume overload. He [...] metFORMIN 500 m (more content not included)... [facility] CONSULT PROGon 10-24-2023 CONSULT PROG HNO ID: [id number] Author: JOSE HARMON RPh Service: Pharmacy Author [...] have any questions, please contact pharmacy at [phone]. Estimated Creatinine Clearance: 60.4 mL/min (A) (based [...] linn October 24, 2023 3:09 AM Normal [facility] Chloride ?Tm Ur-sCncon 10-23 Chloride Unsp time (U) [Moles/Vol] 61 mmol/L Normal 16-250 [facility] Comment on above: Order Comment: [place] Type: BLOOD SPECIMEN Order[facility]: [facility] Address: [address] [place] [address] Performed By: #### 1 9123-9, 70219-3 #### [facility] CLIA [id number] [address] [place] [address] [place] D dimer FEU PPP-mCncon 10-23 Fibrin D-dimer FEU (PPP) [Mass/Vol] 2400 ng/mL FEU High <500 [facility] Comment on above: Order Comment: [place] Type: BLOOD SPECIMENOrdering Facility: [facility] Address: [address] [place] [address] Performed By: #### 4 8065-7, 45322-8, PTTAC ####[facility] [id number] [place] [address] [place] Fibrin D-dimer FEU (PPP) [Ma ss/Vol]on 10-24-2023 D DIMER AGE-RELATED CUTOFF 640 ng/mL FEU Normal [facility] Comment on above: Order Comment: Speci men Type: BLOOD SPECIMENOrdering Facility: [facility] Address: [address] [place] [address] Performed By: #### 4 8065-7, 93254-1, PTTAC ####[facility] [id number] [address] OF [place] Gas and Carbon monoxide pane l (BldV)on 10-24-2023 Base excess Calc (BldV) [Moles/Vol] 4 mmol/L High 0-2 [facility] Comment on above: Order Comment: Speci men Type: BLOOD SPECIMEN Ordering [facility]: [facility] Address: [address] [place] [address] Performed By: #### 1 9123-9, 75281-9 #### [facility] CLIA [id number] [address] [place] [address] [place] Body temperature 32 [degF] Normal [facility] Comment on above: Order Comment: Speci men Type: BLOOD SPECIMEN Order[facility] Facility: [facility] Address: [address] [place] [address] Performed By: #### 1 9123-9, 32091-2 #### [facility] CLIA [id number] [address] [place] [address] [place] Calcium.ionized (Bld) [Mass/Vol] 1.14 mmol/L Normal 1.08-1.30 [facility] Comment on above: Order Comment: Speci men Type: BLOOD SPECIMEN Ordering Facility: [facility] Address: [address] [place] [address] Performed By: #### 1 9123-9, 72359-3 #### [facility] CLIA [id number] [address] [place] [address] [place] Calcium.ionized adjusted to pH 7.4 (BldA) [Moles/Vol] 1.08 mmol/L Normal 1.08-1.30 [facility] Comment on above: Order Comment: Speci men Type: BLOOD SPECIMEN Ordering Facility: [facility] Address: [address] [place] [address] Performed By: #### 1 9123-9, 22512-8 #### [facility] CLIA [id number] [address] [place] [address] [place] Carboxyhemoglobin (BldV) [Mass fraction] 2.3 % High 0.0-2.0 [facility] Comment on above: Order Comment: Speci men Type: BLOOD SPECIMEN Ordering Facility: [facility] Address: [address] [place] [address] Result Comment: Carb oxyhemoglobin Reference Range for Smokers: 2.0-8.0% Performed By: #### 1 9123-9, 88530-6 #### [facility] CLIA [id number] [address] [place] [address] [place] Chloride [Moles/Vol] 103 mmol/L Normal 97-105 [facility] Comment on above: Order Comment: Speci men Type: BLOOD SPECIMEN Ordering Facility: [facility] Address: [address] [place] [address] Performed By: #### 1 9123-9, 38520-5 #### [facility] CLIA [id number] [address] [place] [address] [place] CO2 (BldV) [Partial pressure] 66 mm[Hg] High 42-55 [facility] Comment on above: Order Comment: Speci men Type: BLOOD SPECIMEN Ordering Facility: [facility] Address: [address] [place] [address] Performed By: #### 1 9123-9, 89093-5 #### [facility] CLIA [id number] [address] [place] [address] [place] CO2 adjusted to patient's actual temperature (BldV) [Partial pressure] Normal [facility] Comment on above: Order Comment: Speci men Type: BLOOD SPECIMEN Order[facility] Facility: [facility] Address: [address] [place] [address] Performed By: #### 1 9123-9, 05602-6 #### [facility] CLIA [id number] [address] [place] [address] [place] Glucose [Mass/Vol] 222 mg/dL High 60-105 [facility] Comment on above: Order Comment: Speci men Type: BLOOD SPECIMEN Ordering Facility: [facility] Address: [address] [place] [address] Performed By: #### 1 9123-9, 75309-1 #### [facility] CLIA [id number] [address] [place] [address] [place] HCO3 (Bld) [Moles/Vol] 31 mmol/L High 24-28 [facility] Comment on above: Order Comment: Speci men Type: BLOOD SPECIMEN Order[facility] Facility: [facility] Address: [address] [place] [address] Performed By: #### 1 9123-9, 38549-2 #### [facility] CLIA [id number] [address] [place] [address] [place] Hematocrit (Bld) [Volume fraction] 38.5 % Low 39.0-51.0 [facility] Comment on above: Order Comment: Speci men Type: BLOOD SPECIMEN Order[facility] Facility: [facility] Address: [address] [place] [address] Performed By: #### 1 9123-9, 58725-3 #### [facility] CLIA [id number] [address] [place] [address] [place] Hemoglobin (Bld) [Mass/Vol] 12.5 g/dL Low 13.0-17.0 [facility] Comment on above: Order Comment: Speci men Type: BLOOD SPECIMEN Order[facility]: [facility] Address: [address] [place] [address] Performed By: #### 1 9123-9, 24267-2 #### [facility] CLIA [id number] [address] [place] [address] [place] Lactate [Moles/Vol] 0.7 mmol/L Normal 0.5-2.2 [facility] Comment on above: Order Comment: Speci men Type: BLOOD SPECIMEN Ordering Facility: [facility] Address: [address] [place] [address] Performed By: #### 1 9123-9, 23534-8 #### [facility] CLIA [id number] [address] [place] [address] [place] Methemoglobin (Bld) [Mass fraction] 0.6 % Normal 0.0-1.5 [facility] Comment on above: Order Comment: Speci men Type: BLOOD SPECIMEN Order[facility] Facility: [facility] Address: [address] [place] [address] Performed By: #### 1 9123-9, 37266-8 #### [facility] CLIA [id number] [address] [place] [address] [place] O2 THERAPY RA=Room Air Normal [facility] Comment on above: Order Comment: Speci men Type: BLOOD SPECIMEN Order[facility] Facility: [facility] Address: [address] [place] [address] Performed By: #### 1 9123-9, 45937-4 #### [facility] CLIA [id number] [address] [place] [address] [place] Oxygen (BldV) [Partial pressure] 176 mm[Hg] High 35-45 [facility] Comment on above: Order Comment: Speci men Type: BLOOD SPECIMEN Order[facility] Address: [address] [place] [address] Performed By: #### 1 9123-9, 57324-6 #### [facility] CLIA [id number] [address] [place] [address] [place] Oxygen adjusted to patient's actual temperature (BldV) [Partial pressure] Normal [facility] Comment on above: Order Comment: Speci men Type: BLOOD SPECIMEN Order[facility] Facility: [facility] Address: [address] [place] [address] Performed By: #### 1 9123-9, 42112-0 #### [facility] CLIA [id number] [address] [place] [address] [place] Oxygen saturation in Venous blood 99 % High 60-85 [facility] Comment on above: Order Comment: Speci men Type: BLOOD SPECIMEN [facility] Address: [address] [place] [address] Performed By: #### 1 9123-9, #### [facility] CLIA [id number] [address] [place] [address] [place] Oxyhemoglobin (BldV) [Mass fraction] 96 % High 60-85 [facility] Comment on above: Order Comment: Speci men Type: BLOOD SPECIMEN [facility] Address: [address] [place] [address] Performed By: #### 1 9123-9, #### [facility] CLIA [id number] [address] [place] [address] [place] pH (BldV) 7.30 [pH] Low 7.32-7.42 [facility] Comment on above: Order Comment: Speci men Type: BLOOD SPECIMEN Order[facility] Facility: [facility] Address: [address] [place] [address] Performed By: #### 1 239, #### [facility] CLIA [id number] [address] [place] [address] [place] pH adjusted to patient's actual temperature (BldV) Normal [facility] Comment on above: Order Comment: Speci men Type: BLOOD SPECIMEN [facility] Address: [address] [place] [address] Performed By: #### 1 9123-9, #### [facility] CLIA [id number] [address] [place] [address] [place] Potassium [Moles/Vol] 3.9 mmol/L Normal 3.5-5.0 [facility] Comment on above: Order Comment: Speci men Type: BLOOD SPECIMEN Order[facility] Facility: [facility] Address: [address] [place] [address] Performed By: #### 1 9123-9, 14225-1 #### [facility] CLIA [id number] [address] [place] [address] [place] Sodium [Moles/Vol] 140 mmol/L Normal 136-144 [facility] Comment on above: Order Comment: [place] Type: BLOOD SPECIMEN Order[facility] Address: [address] [place] [address] Performed By: #### 1 9123-9, 31748-7 #### [facility] CLIA [id number] [address] [place] [address] [place] HIGH SENSITIVITY TROPONIN To n 10-24-2023 Troponin T.cardiac High sensitivity method [Mass/Vol] 153 ng/L High <12 [facility] Comment on above: Order Comment: [place] Type: BLOOD SPECIMENOrdering Facility: [facility] Address: [address] [place] [address] Result Comment: When assessing risk for acute [...] day MACE. Performed By: #### H STNT ####[facility] [id number] [address] STATES [facility] Troponin T.cardiac High sensitivity method [Mass/Vol] 152 ng/L High <12 [facility] Comment on above: Order Comment: [place] Type: BLOOD SPECIMENOrdering Facility: [facility] Address: [address] [place] [address] Result Comment: When assessing risk for acute [...] MACE. Performed By: #### 2 4321-2, HSTNT ####[facility] [id number] [place] [id number] [place] HISTORY PHYSICALon HISTORY PHYSICAL HNO ID: [id number] Author: TAY STEWART MD Service: General Internal Medicine Author Type: Physician Type: H&P Filed: 10/25/2023 10:52 Note Text: HISTORY AND PHYSICAL EXAMINATION SERVICE DATE: 10/24/2023 SERVICE TIME: 10:45AM PRIMARY CARE PHYSICIAN: Mounika Brokoe MD, MD Subjective CHIEF COMPLAINT: Fluid overload [...] Plan: Insul (more content not included)... 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 The patient states he's [...] Diagnosis Date IDDM (insulin dependent diabetes mellitus) ([facility]) MRSA infection PAST SURGICAL HISTORY [...] constipation, d (more content not included)... Normal [facility] HbA1c (Bld)on 10-24-2023 Average glucose Estimated from glycated hemoglobin (Bld) [Mass/Vol] 240 mg/dL Normal [facility] Comment on above: Order Comment: Speci men Type: BLOOD SPECIMENOrdering Facility: [facility] Address: [address] [place] [address] Result Comment: eAG: (Estimated average glucose) is a calculated value from HgbA1c and is enrollment representative of the average blood glucose level in the last 2-3 month period. Performed By: #### 5 5454-3 ####[facility] [id number] [place] [address] [place] HbA1c (Bld) [Mass fraction] 10.0 % High 4.3-5.6 [facility] Comment on above: Order Comment: Speci men Type: BLOOD SPECIMENOrdering Facility: [facility] Address: [address] [place] [address] [place] [address] Result Comment: [place] Diabetes Association guidelines indicate that patients with HgbA1c in the range 5.7-6.4% are at increased risk for development of diabetes, and intervention by lifestyle modification may be beneficial. HgbA1c greater or equal to 6.5% is considered diagnostic of diabetes. Performed By: #### 5 5454-3 ####[facility] [id number] [address] [place] LUNG VENT [...] - IMPRESSION: LOW PROBABILITY OF PULMONARY EMBOLISM. Reduction Plant Supervisor: PSCErika Transcribe Date/Time: Oct 24 2023 2:27P Dictated by : CAT LUO MD This examination was interpreted and the report reviewed and electronically signed by: CAT LUO MD on Oct 24 2023 2:29PM EST [id number] Normal [facility] NURSING PROGon 10-24-2023 NURSING PROG HNO ID: [id number] Author: SLADE MCMILLAN, RN Service: ? Author Type: Registered Nurse Type: Nursing Progress Note Filed: 10/24/2023 23:50 Note Text: 2118: page house to delia ishan pt pCO2 came back 72. 2143: raymon bhatt at bedside states she will talk to ICU team and go from there 2348: pt transferred to MICU, report given to RN. [facility] NURSING PROG HNO ID: [id number] Author: GUADALUPE ANGEL, RAFAEL Service: Nursing Author Type: Registered Nurse Type: Nursing Progress Note Filed: 10/24/2023 18:32 Note Text: Other: Late entry for 829, decreased oxygen to 5L NC, baseline is 4L NC at home. 1230: Heparin gtt discontinued, ( no cardiology intervention to be done at this time) diet order placed 1700: urgent pCO2 of 70. 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 1715 oxygen turned to 4.5 L per resp recommendation sales officer paged 1745: House office aware and into talk with patient. Will reach out to ICU for recommendations, sating 88-90 on 4.5 L 1830: New orders to repeat ABG's again at [address] [facility] NURSING PROG HNO ID: [id number] Author: ANIA VAZQUEZ, RAFAEL Service: ? Author Type: Registered Nurse Type: Nursing Progress Note Filed: 10/24/2023 03:26 Note Text: 0223- secure chat with HARPAL Garcia, pt has STAT order for echo, ok to be done tommorow, does not need to be done at this time [facility] NURSING PROG HNO ID: [id number] Author: SLADE MCMILLAN, RN Service: ? Author Type: Registered Nurse Type: Nursing Progress Note Filed: 10/24/2023 04:15 Note Text: 0304: page house pt MARINA came back 152. 0405: page [place] pt pulse ox keep dropping to 85-87 and he is on 6L of O2. he would jump up to 95 then back down and sustaining at 88%. He denies SOB. 0412: called back form , new orders put in. [facility] NURSING PROG HNO ID: [id number] Author: ANIA VAZQUEZ, RAFAEL Service: ? Author Type: Registered Nurse Type: Nursing Progress Note Filed: 10/24/2023 01:27 Note Text: Transfer Note: PATIENT NAME: Nicole Lora Patient Location: [place] [id number] Room: [address] Patient transferred into room/unit PK322 from the ED in stable condition. Actions taken: No futher actions taken at this time. Will continue to monitor and check with patient. Normal [facility] Osmolality SerPlon Osmolality [Osmolality] 316 mosm/kg High 275-300 [facility] Comment on above: Order Comment: [place] Type: BLOOD SPECIMEN [facility] Address: [address] [place] [address] Performed By: #### P TTAC #### [facility] CLIA [id number] [address] [place] [address] [place] Osmolality Uron 10-24-2023 Osmolality (U) [Osmolality] 343 mosm/kg Normal 50-1200 [facility] Comment on above: Order Comment: [place] Type: BLOOD SPECIMEN Order[facility] Address: [address] [place] [address] Performed By: #### 1 9123-9, 46234-6 #### [facility] CLIA [id number] [address] [place] [address] [place] PT panel Coag (PPP)on 2023 INR Coag (PPP) [Relative time] 1.0 {INR} Normal 0.9-1.3 [facility] Comment on above: Order Comment: [place] Type: BLOOD SPECIMENOrdering Facility: [facility] Address: [address] [place] [address] Result Comment: Hazel min K Antagonist (VKA) Therapeutic Range: INR 2 to 3 (Target INR of 2.5) Note: For patients treated with VKA drugs, such as warfarin, the [place] [employer] 2012 Guideline recommends [...] Chest 2012, 141:7S-47S Sheri RA, et al. [facility] 2017, 70: 252-289 Performed By: #### 4 8065-7, 15326-7, PTTAC ####[facility] [id number] [place] [address] [place] PT Coag (PPP) [Time] 10.9 s Normal 9.7-13.0 [facility] Comment on above: Order Comment: Speci men Type: BLOOD SPECIMENOrdering Facility: [facility] Address: [address] [place] [address] Performed By: #### 4 8065-7, 01439-6, PTTAC ####[facility] [id number] [place] [address] [place] PTT, ANTICOAGULANT THERAPYon 10-24-2023 aPTT Coag (PPP) [Time] 31.1 s Normal 23.0-32.4 [facility] Comment on above: Order Comment: Speci men Type: BLOOD SPECIMEN Ordering Facility: [facility] Address: [address] [place] [address] Performed By: #### P TTAC #### [facility] CLIA [id number] [address] [place] [address] [place] aPTT Coag (PPP) [Time] 28.0 s Normal 23.0-32.4 [facility] Comment on above: Order Comment: Speci men Type: BLOOD SPECIMENOrdering Facility: [facility] Address: [address] [place] [address] Performed By: #### 4 8065-7, 97019-3, PTTAC ####[facility] [id number] [place] [address] [place] Potassium ?Tm Ur-sCncon 03-0 Potassium Unsp time (U) [Moles/Vol] 25.9 mmol/L Normal 10.0-160.0 [facility] Comment on above: Order Comment: Speci men Type: BLOOD SPECIMEN Ordering Facility: [facility] Address: [address] [place] [address] Performed By: #### P TTAC #### [facility] CLIA [id number] [address] [place] [address] [place] Prot/Creat Uron 10-24-2023 Protein/Creatinine (U) [Mass ratio] 1.09 mg/mg High <0.15 [facility] Comment on above: Order Comment: Speci men Type: BLOOD SPECIMEN Ordering Facility: [facility] Address: [address] [place] [address] Result Comment: Adul t Proteinuria Categories: <0.15 mg/mg is considered normal to mildly increased 0.15 - 0.50 mg/mg is considered moderately increased >0.50 mg/mg is considered severely increased KDIGO. (2013). KDIGO 2012 Clinical Practice Guideline for the Evaluation and Management of Chronic Kidney Disease. Official Journal of the International Society of Nephrology, 3(1), 1-150. Performed By: #### P TTAC #### [facility] CLIA [id number] [address] [place] [address] [place] Protein/Creatinine (U) [Mass ratio]on 10-24-2023 Creatinine (U) [Mass/Vol] 43.3 mg/dL Normal 20.0-300.0 [facility] Comment on above: Order Comment: Speci men Type: BLOOD SPECIMEN Ordering Facility: [facility] Address: [address] [place] [address] Performed By: #### P TTAC #### [facility] CLIA [id number] [address] [place] [address] [place] Protein (U) [Mass/Vol] 47 mg/dL High 0-20 [facility] Comment on above: Order Comment: Speci men Type: BLOOD SPECIMEN Ordering Facility: [facility] Address: [address] [place] [id number] Performed By: #### P TTAC #### [facility] CLIA [id number] [address] [place] [id number] [place] Sodium ?Tm Ur-sCncon 024 Sodium Unsp time (U) [Moles/Vol] 61 mmol/L Normal 14-216 [facility] Comment on above: Order Comment: Speci men Type: BLOOD SPECIMEN Ordering Facility: [facility] Address: [address] [id number] Performed By: #### P TTAC #### [facility] CLIA [id number] [address] [place] [id number] [place] THERAPY NTon 10-24-2023 THERAPY NT HNO ID: [id number] Author: CATHIE DOMÍNGUEZ, PT Service: Physical Therapy Author Type: Physical Therapist Type: Therapy (PT/OT/Speech/Resp) Filed: 10/24/2023 12:05 Note Text: Physical Therapy Evaluation Summary SERVICE DATE: 10/24/2023 SERVICE TIME: 908 to 931 ROOM: [place] [address] PT 6 Clicks Score: 20 DISCHARGE RECOMMENDATIONS [...] See Comment Comments: Apt 1st level In [place], [place] Assistance Available: Part-Time, Other: See Comment [...] independently prior to admit, and drives. Per [facility], Pt has been in and out of hospitals for the past six weeks. . Pt has five children in the area, and reported they check him daily. SUBJECTIVE I'm uncomfortable THERAPY DIAGNOSIS Reduced mobility-other, Muscle Weakness (generalized), General symptoms and signs-other TREATMENT INTERVENTIONS Evaluation, Gait Training (46156) Timed Code Treatment (minutes): 8 Skilled Treatment [...] October 24, 2023 TIME: 12:05 PM Normal [facility] THERAPY NT HNO ID: [id number] Author: LUZMA AVALOS OTR/L Service: Occupational Therapy Author Type: Occupational Therapist Type: Therapy (PT/OT/Speech/Resp) Filed: 10/24/2023 12:02 Note Text: Occupational Therapy Evaluation Summary SERVICE DATE: 10/24/2023 SERVICE TIME: 0840 to 904 ROOM: [place] [address] OT 6 Clicks Score: 19 SOB, BLE Edema Rt > Left, Elevated troponin, Fluid Overload. Pt Presents With Multiple Recent Hospital Admits. DISCHARGE RECOMMENDATIONS Home Anticipated Discharge Needs: Physical Assist at Home, Equipment Physical Assist at Home for: Transportation, Shopping, Laundry, Cleaning Recommended Discharge Equipment: Grab Bars-Shower, Hand Held Shower, Long Handled Shoe Horn, Long Handled Sponge, Wheeled Walker, Direct Sales Professional, Shower Chair ASSESSMENT Response to Therapy Interventions: [...] See Comment Comments: Apt 1st level In [place], [place] Assistance Available: Part-Time, Other: See Comment [...] independently prior to admit, and drives. Per [employer], Pt has been in and out of [...] (generalized) TREATMENT INTERVENTIONS Evaluation, Self Mcc Management (18685) Timed Code Treatment (minutes): 10 Skilled Treatment Time (minutes): 25 TRAINING AND EDUCATION PROVIDED Bed Mobility, Benefits of In-Hospital Mobility, Discharge Planning, Edema Management, Disease Specific Education, Energy Conservation, Expected Functional Level, Insight into Deficits, Positioning, Precautions/Restricti ons, Role of Occupational Therapy, Safety/Judgment, Standing Balance to Improve [place] with ADLs/Self-Care, Transfer - Bed to Chair, [...] Rehab Po (more content not included)... Normal [facility] URINALYSIS, REFLEX MICROSCOP ICon 10-24-2023 Bacteria LM.HPF (Urine sed) [#/Area] Rare Abnormal None Seen [facility] Comment on above: Order Comment: Speci men Type: BLOOD SPECIMEN Ordering Facility: [facility] Address: [address] [place] [address] Performed By: #### 1 9123-04, #### [facility] CLIA [id number] [address] [place] [address] [place] Bilirubin Ql (U) Negative Normal Negative [facility] Comment on above: Order Comment: Speci men Type: BLOOD SPECIMEN Ordering Facility: [facility] Address: [address] [place] [address] Performed By: #### 1 9123-04, 37279-5 #### [facility] CLIA [id number] [address] [place] [address] [place] Clarity (Unsp spec) Clear Normal Clear [facility] Comment on above: Order Comment: Speci men Type: BLOOD SPECIMEN Ordering Facility: [facility] Address: [address] [place] [address] Performed By: #### 1 9123-04, #### [facility] CLIA [id number] [address] [place] [address] [place] Color (U) Light Yellow Normal Yellow [facility] Comment on above: Order Comment: Speci men Type: BLOOD SPECIMEN Ordering Facility: [facility] Address: [address] [place] [address] Performed By: #### 1 9123-04, #### [facility] CLIA [id number] [address] [place] [address] [place] Glucose Test strip (U) [Mass/Vol] Trace Normal Trace, Negative [facility] Comment on above: Order Comment: Speci men Type: BLOOD SPECIMEN Ordering Facility: [facility] Address: [address] [place] [address] Performed By: #### 1 9123-04, #### [facility] CLIA [id number] [address] [place] [address] [place] Hemoglobin Ql (U) 1+ Abnormal Negative, Trace Fa [facility] Comment on above: Order Comment: Speci men Type: BLOOD SPECIMEN Ordering Facility: [facility] Address: [address] [place] [address] Performed By: #### 1 9123-04, 18189-1 #### [facility] CLIA [id number] [address] [place] [address] [place] Hyaline casts (Urine sed) [#/Area] 4-10 /LPF Abnormal 0 /LPF [facility] Comment on above: Order Comment: Speci men Type: BLOOD SPECIMEN Ordering Facility: [facility] Address: [address] [place] [address] Performed By: #### 1 9123-9, 71180-9 #### [facility] CLIA [id number] [address] [place] [address] [place] Ketones Ql (U) Negative Normal Negative, Trace [facility] Comment on above: Order Comment: Speci men Type: BLOOD SPECIMEN Ordering Facility: [facility] Address: [address] [place] [address] Performed By: #### 1 9123-9, 82800-5 #### [facility] CLIA [id number] [address] [place] [address] [place] Leukocyte esterase Test strip Ql (U) 500 Moira/uL Abnormal Negative, 25 Moira/uL [facility] Comment on above: Order Comment: Speci men Type: BLOOD SPECIMEN Ordering Facility: [facility] Address: [address] [place] [address] Performed By: #### 1 9123-9, 84764-3 #### [facility] CLIA [id number] [address] [place] [address] [place] Nitrite Ql (U) Negative Normal Negative [facility] Comment on above: Order Comment: Speci men Type: BLOOD SPECIMEN Ordering Facility: [facility] Address: [address] [place] [address] Performed By: #### 1 9123-9, 55318-8 #### [facility] CLIA [id number] [address] [place] [address] [place] pH (U) 5.5 [pH] Normal 5.0-8.0 [facility] Comment on above: Order Comment: Speci men Type: BLOOD SPECIMEN Ordering Facility: [facility] Address: [address] [place] [address] Performed By: #### 1 9123-9, #### [facility] CLIA [id number] [address] [place] [address] [place] Protein (U) [Mass/Vol] 1+ Abnormal Trace, Negative [facility] Comment on above: Order Comment: Speci men Type: BLOOD SPECIMEN Ordering Facility: [facility] Address: [address] [place] [address] Performed By: #### 1 239, 38296-3 #### [facility] CLIA [id number] [address] [place] [address] [place] RBC LM.HPF (Urine sed) [#/Area] /[HPF] Abnormal 0-3 /HPF [facility] Comment on above: Order Comment: Speci men Type: BLOOD SPECIMEN Ordering Facility: [facility] Address: [address] [place] [address] Performed By: #### 1 91239, #### [facility] CLIA [id number] [address] [place] [address] [place] Specific gravity (U) [Rel density] 1.015 Normal 1.005-1.030 [facility] Comment on above: Order Comment: Speci men Type: BLOOD SPECIMEN Ordering Facility: [facility] Address: [address] [place] [address] Performed By: #### 1 91239, #### [facility] CLIA [id number] [address] [place] [address] [place] Urobilinogen Ql (U) Normal Normal Normal [facility] Comment on above: Order Comment: Speci men Type: BLOOD SPECIMEN Ordering Facility: [facility] Address: [address] [place] [address] Performed By: #### 1 91239, #### [facility] CLIA [id number] [address] [place] [address] [place] WBC LM.HPF (Urine sed) [#/Area] 11-25 /HPF Abnormal 0-5 /HPF [facility] Comment on above: Order Comment: Speci men Type: BLOOD SPECIMEN Ordering Facility: [facility] Address: [facility] [place] [address] Performed By: #### 1 9123-9, 49732-5 #### [facility] CLIA [id number] [address] [place] [address] [place] US KIDNEY/BLADDERon 10-24-19 [...] Otherwise limited assessment especially on the left. Reduction Plant Supervisor: SAM Transcribe Date/Time: Oct 25 2023 7:19A Dictated by : KASHIF PIERSON MD This examination was interpreted and the report reviewed and electronically signed by: KASHIF PIERSON MD on Oct 25 2023 7:21AM EST [id number] Normal [facility] HEALTHon 10-23-2023 ALLIED HEALTH HNO ID: [id number] Author: LI WEN RDMS Service: Radiology Author Type: Social Media Strategist Type: Allied Health Filed: 10/23/2023 18:11 Note [...] PATIENT PRESENTS WITH AN IMPLANTABLE OR ATTACHED PACK WORKER: No RADIOLOGY DEPARTMENT: Ultrasound PERIPHERAL IV DATA: Not applicable SIGNED BY: Li Wen RDMS October 23, 2023 6:[address] [facility] ALLIED HEALTH HNO ID: [id number] Author: RUBINA NINO RT(Zarina) Service: Radiology Author [...] PATIENT PRESENTS WITH AN IMPLANTABLE OR ATTACHED PACK WORKER: No RADIOLOGY DEPARTMENT: General X-ray: Exam(s) Completed: Chest X-Ray PERIPHERAL IV DATA: Not applicable SIGNED BY: RT Kena(R) October 23, 2023 5:[address] [facility] CBC W Auto Differential pane l (Bld)on 10-23-2023 Basophils (Bld) [#/Vol] 10*3/uL Normal <0.11 [facility] Comment on above: Order Comment: Speci men Type: BLOOD SPECIMEN Ordering Facility: [facility] Address: [address] [place] [address] Performed By: #### 1 9123-9, 64377-4 #### [facility] CLIA [id number] [address] [place] [address] [place] Basophils/100 WBC (Bld) 0.3 % Normal [facility] Comment on above: Order Comment: Speci men Type: BLOOD SPECIMEN Ordering Facility: [facility] Address: [address] [place] [address] Performed By: #### 1 9123-04, #### [facility] CLIA [id number] [address] [place] [address] [place] Differential cell count method Nom (Bld) Auto Normal [facility] Comment on above: Order Comment: Speci men Type: BLOOD SPECIMEN Order[facility] Facility: [facility] Address: [address] [place] [address] Performed By: #### 1 9123-04, #### [facility] CLIA [id number] [address] [place] [address] [place] Eosinophils (Bld) [#/Vol] 0.27 10*3/uL Normal <0.46 [facility] Comment on above: Order Comment: Speci men Type: BLOOD SPECIMEN Order[facility] Facility: [facility] Address: [address] [place] [address] Performed By: #### 1 9123-04, #### [facility] CLIA [id number] [address] [place] [address] [place] Eosinophils/100 WBC (Bld) 3.8 % Normal [facility] Comment on above: Order Comment: Speci men Type: BLOOD SPECIMEN Ordering Facility: [facility] Address: [address] [place] [address] Performed By: #### 1 9123-04, #### [facility] CLIA [id number] [address] [place] [address] [place] Erythrocyte distribution width (RBC) [Ratio] 16.3 % High 11.5-15.0 [facility] Comment on above: Order Comment: Speci men Type: BLOOD SPECIMEN Ordering Facility: [facility] Address: [address] [place] [address] Performed By: #### 1 23, #### [facility] CLIA [id number] [address] [place] [address] [place] Hematocrit (Bld) [Volume fraction] 40.6 % Normal 39.0-51.0 [facility] Comment on above: Order Comment: Speci men Type: BLOOD SPECIMEN Order[facility] Facility: [facility] Address: [address] [place] [address] Performed By: #### 1 9123-9, 15115-1 #### [facility] CLIA [id number] [address] [place] [address] [place] Hemoglobin (Bld) [Mass/Vol] 12.4 g/dL Low 13.0-17.0 [facility] Comment on above: Order Comment: Speci men Type: BLOOD SPECIMEN Order[facility]: [facility] Address: [address] [place] [address] Performed By: #### 1 9123-9, 60212-3 #### [facility] CLIA [id number] [address] [place] [address] [place] Immature granulocytes (Bld) [#/Vol] 0.04 10*3/uL Normal <0.10 [facility] Comment on above: Order Comment: Speci men Type: BLOOD SPECIMEN Order[facility] Facility: [facility] Address: [address] [place] [address] Performed By: #### 1 9123-9, 10701-7 #### [facility] CLIA [id number] [address] [place] [address] [place] Immature granulocytes/100 WBC (Bld) 0.6 % Normal [facility] Comment on above: Order Comment: Speci men Type: BLOOD SPECIMEN Order[facility] Facility: [facility] Address: [address] [place] [address] Performed By: #### 1 9123-9, 77238-3 #### [facility] CLIA [id number] [address] [place] [address] [place] Lymphocytes (Bld) [#/Vol] 1.04 10*3/uL Normal 1.00-4.00 [facility] Comment on above: Order Comment: Speci men Type: BLOOD SPECIMEN Order[facility] Address: [address] [place] [address] Performed By: #### 1 23-9, #### [facility] CLIA [id number] [address] [place] [address] [place] Lymphocytes/100 WBC (Bld) 14.7 % Normal [facility] Comment on above: Order Comment: Speci men Type: BLOOD SPECIMEN Order[facility] Facility: [facility] Address: [address] [place] [address] Performed By: #### 1 9123-04, #### [facility] CLIA [id number] [address] [place] [address] [place] MCH (RBC) [Entitic mass] 27.1 pg Normal 26.0-34.0 [facility] Comment on above: Order Comment: Speci men Type: BLOOD SPECIMEN Order[facility] Facility: [facility] Address: [address] [place] [address] Performed By: #### 1 9123-04, #### [facility] CLIA [id number] [address] [place] [address] [place] MCHC (RBC) [Mass/Vol] 30.5 g/dL Normal 30.5-36.0 [facility] Comment on above: Order Comment: Speci men Type: BLOOD SPECIMEN Order[facility] Facility: [facility] Address: [address] [place] [address] Performed By: #### 1 239, #### [facility] CLIA [id number] [address] [place] [address] [place] MCV (RBC) [Entitic vol] 88.6 fL Normal 80.0-100.0 [facility] Comment on above: Order Comment: Speci men Type: BLOOD SPECIMEN Order[facility] Facility[facility] Address: [address] [place] [address] Performed By: #### 1 239, 14267-5 #### [facility] CLIA [id number] [address] [place] [address] [place] Monocytes (Bld) [#/Vol] 0.74 10*3/uL Normal <0.87 [facility] Comment on above: Order Comment: Speci men Type: BLOOD SPECIMEN Order[facility] Facility[facility] Address: [address] [place] [address] Performed By: #### 1 239, #### [facility] CLIA [id number] [address] [place] [address] [place] Monocytes/100 WBC (Bld) 10.4 % Normal [facility] Comment on above: Order Comment: Speci men Type: BLOOD SPECIMEN Order[facility] Facility: [facility] Address: [address] [place] [address] Performed By: #### 1 9123-04, #### [facility] CLIA [id number] [address] [place] [address] [place] Neutrophils (Bld) [#/Vol] 4.98 10*3/uL Normal 1.45-7.50 [facility] Comment on above: Order Comment: Speci men Type: BLOOD SPECIMEN Order[facility] Facility: [facility] Address: [address] [place] [address] Performed By: #### 1 239, #### [facility] CLIA [id number] [address] [place] [address] [place] Neutrophils/100 WBC (Bld) 70.2 % Normal [facility] Comment on above: Order Comment: Speci men Type: BLOOD SPECIMEN Order[facility] Facility: [facility] Address: [address] [place] [address] Performed By: #### 1 9123, #### [facility] CLIA [id number] [address] [place] [address] [place] Nucleated RBC (Bld) [#/Vol] 10*3/uL Normal <0.01 [facility] Comment on above: Order Comment: Speci men Type: BLOOD SPECIMEN Order[facility] Facility[facility] Address: [address] [place] [address] Performed By: #### 1 91239, 07259-3 #### [facility] CLIA [id number] [address] [place], [place] [address] [place] Nucleated RBC/100 WBC (Bld) [Ratio] 0.0 /100 WBC Normal [facility] Comment on above: Order Comment: Speci men Type: BLOOD SPECIMEN Ordering Facility: [facility] Address: [address] [place] [address] Performed By: #### 1 9123-9, 22809-9 #### [facility] CLIA [id number] [address] [place] [address] [place] Platelet mean volume (Bld) [Entitic vol] 8.9 fL Low 9.0-12.7 [facility] Comment on above: Order Comment: Speci men Type: BLOOD SPECIMEN Order[facility] Facility: [facility] Address: [address] [place] [address] Performed By: #### 1 9123-9, 80385-5 #### [facility] CLIA [id number] [address] [place] [address] [place] Platelets (Bld) [#/Vol] 220 10*3/uL Normal 150-400 [facility] Comment on above: Order Comment: Speci men Type: BLOOD SPECIMEN Order[facility] Facility: [facility] Address: [address] [place] [address] Performed By: #### 1 9123-9, 48178-6 #### [facility] CLIA [id number] [address] [place] [address] [place] RBC (Bld) [#/Vol] 4.58 10*6/uL Normal 4.20-6.00 [facility] Comment on above: Order Comment: Speci men Type: BLOOD SPECIMEN Order[facility] Facility[facility] Address: [address] [place] [address] Performed By: #### 1 9123-9, 00447-7 #### [facility] CLIA [id number] [address] [place] [address] [place] WBC (Bld) [#/Vol] 7.09 10*3/uL Normal 3.70-11.00 [facility] Comment on above: Order Comment: Speci men Type: BLOOD SPECIMEN Ordering Facility: [facility] Address: [address] [place] [address] Performed By: #### 1 9123-9, 37373-8 #### [facility] CLIA [id number] [address] [place], [place] [address] [facility] Comprehensive metabolic 2000 panelon 10-23-2023 Albumin [Mass/Vol] 3.5 g/dL Low 3.9-4.9 [facility] Comment on above: Order Comment: Speci men Type: BLOOD SPECIMEN Order[facility] Facility[facility] Address: [address] [place] [address] Performed By: #### H STNT, 3016-3, 64138-4, 39213-8 #### [facility] CLIA [id number] [address] [place] [address] [place] ALP [Catalytic activity/Vol] 112 U/L Normal 38-113 [facility] Comment on above: Order Comment: Speci men Type: BLOOD SPECIMEN Ordering Facility: [facility] Address: [address] [place] [address] Performed By: #### H STNT, 3016-3, 50894-3, 24166-9 #### [facility] CLIA [id number] [address] [place] [address] ALT [Catalytic activity/Vol] 19 U/L Normal 10-54 [facility] Comment on above: Order Comment: Speci men Type: BLOOD SPECIMEN Ordering Facility: [facility] Address: [address] [place] [address] Performed By: #### H STNT, 3016-3, 02859-1, 16707-0 #### [facility] CLIA [id number] [address] [place] [address] [place] Anion gap [Moles/Vol] 11 mmol/L Normal 9-18 [facility] Comment on above: Order Comment: Speci men Type: BLOOD SPECIMEN Ordering Facility: [facility] Address: [address] [place] [address] Performed By: #### H STNT, 3016-3, 16142-2, 24322-6 #### [facility] CLIA [id number] [address] [place] [address] [place] AST [Catalytic activity/Vol] 21 U/L Normal 14-40 [facility] Comment on above: Order Comment: Speci men Type: BLOOD SPECIMEN Ordering Facility: [facility] Address: [address] [place] [address] Performed By: #### H STNT, 3016-3, 54991-3, 64339-3 #### [facility] CLIA [id number] [address] [place] [address] [place] Bilirubin [Mass/Vol] 0.4 mg/dL Normal 0.2-1.3 [facility] Comment on above: Order Comment: Speci men Type: BLOOD SPECIMEN Ordering Facility[facility] Address: [address] [place] [address] Performed By: #### H STNT, 3016-3, 02050-3, 63637-9 #### [facility] CLIA [id number] [address] [place] [address] [place] Calcium [Mass/Vol] 8.6 mg/dL Normal 8.5-10.2 [facility] Comment on above: Order Comment: Speci men Type: BLOOD SPECIMEN Ordering Facility: [facility] Address: [address] [place] [address] Performed By: #### H STNT, 3016-3, 26869-2, 66153-6 #### [facility] CLIA [id number] [address] [place] [address] [place] Chloride [Moles/Vol] 100 mmol/L Normal 97-105 [facility] Comment on above: Order Comment: Speci men Type: BLOOD SPECIMEN Ordering Facility[facility] Address: [address] [place] [address] Performed By: #### H STNT, 3016-3, 10409-0, 34096-7 #### [facility] CLIA [id number] [address] [place] [address] [place] CO2 [Moles/Vol] 28 mmol/L Normal 22-30 [facility] Comment on above: Order Comment: Speci men Type: BLOOD SPECIMEN Ordering Facility: [facility] Address: [address] [place] [address] Performed By: #### H STNT, 3016-3, 32997-2, 17234-7 #### [facility] CLIA [id number] [address] [place] [address] [place] Creatinine [Mass/Vol] 2.00 mg/dL High 0.73-1.22 [facility] Comment on above: Order Comment: Speci men Type: BLOOD SPECIMEN Ordering Facility: [facility] Address: [address] [place] [address] Performed By: #### H STNT, 3016-3, 14148-4, 01211-3 #### [facility] CLIA [id number] [address] [place] [address] [place] Creatinine and Glomerular filtration rate.predicted panel (S/P/Bld) 37 mL/min/1.73m??? Low >=60 [facility] Comment on above: Order Comment: Speci men Type: BLOOD SPECIMEN Ordering Facility: [facility] Address: [address] [place] [address] Result Comment: Meredith mated Glomerular Filtration Rate [...] GFR. Performed By: #### H STNT, 3016-3, 71378-7, 63251-6 #### [facility] CLIA [id number] [address] [place] [address] [place] Glucose [Mass/Vol] 138 mg/dL High 74-99 [facility] Comment on above: Order Comment: Kentoni chapis Type: BLOOD SPECIMEN Ordering Facility: [facility] Address: [address] [place] [address] Result Comment: The [place] Diabetes Association (ADA) provides guidance for cutoff [...] Standards of Medical Care in Diabetes 2016, [place] Diabetes Association. Diabetes Care. 2016.39(Suppl 1). Performed By: #### H STNT, 3016-3, 88109-4, 76155-5 #### [facility] CLIA [id number] [address] [place] [address] [place] Potassium [Moles/Vol] 4.6 mmol/L Normal 3.7-5.1 [facility] Comment on above: Order Comment: [place] Type: BLOOD SPECIMEN Ordering Facility: [facility] Address: [address] [place] [address] Performed By: #### H STNT, 6-3, 67545-0, 01799-3 #### [facility] CLIA [id number] [address] [place] [address] [place] Protein [Mass/Vol] 6.5 g/dL Normal 6.3-8.0 [facility] Comment on above: Order Comment: [place] Type: BLOOD SPECIMEN Ordering Facility: [facility] Address: [address] [place] [address] Performed By: #### H STNT, 6-3, 56923-9, 98400-9 #### [facility] CLIA [id number] [address] [place] [address] [place] Sodium [Moles/Vol] 139 mmol/L Normal 136-144 [facility] Comment on above: Order Comment: Kentoni chapis Type: BLOOD SPECIMEN Ordering Facility: [facility] Address: [address] [place] [address] Performed By: #### H STNT, 3016-3, 93518-2, 31165-2 #### [facility] CLIA [id number] [place] Urea nitrogen [Mass/Vol] 60 mg/dL High 9-24 [facility] Comment on above: Order Comment: Speci men Type: BLOOD SPECIMEN Ordering Facility: [facility] Address: [address] [place] [address] [place] [address] Performed By: #### H STNT, 3016-3, 01700-0, 78756-9 #### [facility] CLIA [id number] [place] [id number] [facility] ECG COMPLETEon 10-23-2023 ECG COMPLETE Ventricular Rate : 7 7 BPM Atrial Rate : 78 BPM P-R Interval : 180 ms QRS Duration : 97 ms Q-T Interval : 389 ms QTC Calculation(Bazett) : 441 ms Calculated P Arabi : 53 degrees Calculated R Arabi : -76 degrees Calculated T Arabi : 65 degrees Sinus rhythm Left anterior fascicular block Abnormal ECG no stemi Confirmed by DARNELL YIN MD ([id number]), multimedia editor JACQUELINE ROSALES ([id number]) on 10/24/2023 10:36:37 AM NAME : NICOLE LORA PID : [id number] : 1960 Gender : Male Race : ORD : [id number] Procedure Date : Oct 23 2023 20:16:04 Edit Date : Oct 24 2023 10:36:39 Diagnosis: Sinus rhythm Left anterior fascicular block Abnormal ECG no stemi Confirmed by DARNELL YIN MD ([id number]), multimedia editor JACQUELINE ROSALES ([id number]) on 10/24/2023 10:36:37 AM Test Reason : Other - Specify Location : 402 : FVED [id number] Overread By : DARNELL YIN MD Edited By : JACQUELINE ROSALES Referred By : , Acquired by : [id number], [facility] ED NOTEon 10-23-2023 ED NOTE HNO ID: [id number] Author: PER HARDWICK RN Service: ? Author Type: Registered Nurse Type: ED Notes Filed: 10/23/2023 19:07 Note Text: Report to RAFA[place] [facility] ED PROV NOTEon 10-23-2023 ED PROV NOTE HNO ID: [id number] Author: DARNELL YIN MD Service: Emergency Medicine Author Type: Physician Type: ED Provider Notes Filed: 10/24/2023 15:12 Note Text: ED Provider Note Patient Name: Nicole Lora : 1960 SERVICE DATE: 10/23/23 History Patient presents with: Shortness of Breath: On 4L O2 13/03 Edema: Chronic BLE History provided by: Patient and relative (daughter) aerial photograph interpreter used: No 63 year old male with history of DM, MRSA, urinary retention, CKD , chronic home O2 4L with complaint of swelling in leg. He has been in and out of the hospital for the past 6 weeks at [facility] and [facility]. He was initially found to be in [...] for the (more content not included)... Normal [facility] ED Triage Noteon 10-23-2023 ED Triage Note HNO ID: [id number] Author: OTONIEL ALBERTS MD Service: ? Author [...] No diagnosis found. SIGNATURE: Otoniel Alberts MD [facility] HIGH SENSITIVITY TROPONIN To n 10-23-2023 Troponin T.cardiac High sensitivity method [Mass/Vol] 167 ng/L High <12 [facility] Comment on above: Order Comment: [place] Type: BLOOD SPECIMENOrdering Facility: [facility] Address: [address] [place] [address] Result Comment: When assessing risk for acute [...] day MACE. Performed By: #### H STNT ####[facility] [id number] [place] [address] [place] Troponin T.cardiac High sensitivity method [Mass/Vol] 172 ng/L High <12 [facility] Comment on above: Order Comment: [place] Type: BLOOD SPECIMEN Ordering Facility: [facility] Address: [address] [place] [address] Result Comment: When assessing risk for acute [...] MACE. Performed By: #### H STNT, 3016-3, 28916-2, 55898-1 #### [facility] CLIA [id number] [place] NT-proBNP SerPl-mCncon 10-22 Natriuretic peptide.B prohormone N-Terminal [Mass/Vol] 1124 pg/mL High <125 [facility] Comment on above: Order Comment: [place] Type: BLOOD SPECIMEN Ordering Facility: [facility] Address: [address] [place] [address] Performed By: #### H STNT, 3016-3, 02225-2, 05522-5 #### [facility] CLIA [id number] [address] [place] [address] [place] TSH SerPl-aCncon 10-23-2023 TSH Qn 2.630 m[IU]/L Normal 0.270-4.200 [facility] Comment on above: Order Comment: [place] Type: BLOOD SPECIMEN Ordering Facility: [facility] Address: [address] [place] [address] Performed By: #### H STNT, 3016-3, 16795-8, 13565-2 #### [facility] CLIA [id number] [address] [place] [address] [place] US DVT LOWER [...] OF THE LEFT AND RIGHT LOWER EXTREMITIES. Reduction Plant Supervisor: SAM Transcribe Date/Time: Oct 23 2023 6:44P Dictated by : PRESTON GONZALEZ MD This examination was interpreted and the report reviewed and electronically signed by: PRESTON GONZALEZ MD on Oct 23 2023 6:47PM EST [id number] Normal [facility] XR CHEST 1V FRONTAL PORTon 0 10-23-2023 [...] venous hypertension and possible mild pulmonary edema. Reduction Plant Supervisor: PSCB Transcribe Date/Time: Oct 23 2023 5:22P Dictated by : RADHA KONG MD This examination was interpreted and the report reviewed and electronically signed by: RADHA KONG MD on Oct 23 2023 5:25PM EST [id number] Normal [facility] Pre-Certification Formon Pre-Certification Form [id number] .00TIFF [facility] Ambulatory Visit Summaryon 0 10-18-2023 Ambulatory Visit Summary [facility] Patient Educationon 10-18-19 Patient Education [facility] Urology Office/Clinic Noteon 10-18-2023 Urology Office/Clinic Note [facility] Comment on above: Result Comment: Elec tronically Signed By: Basia Claire.samir\Date and Time Signed: 10/18/23 09:42 EST\.br\Electronically Co-Signed By: Bailey Vásquez\.br\Date and Time Co-Signed: 10/18/23 09:44 EST\.br\Electronically Co-Signed By: Taz THOMAS MD\.br\Date and Time Co-Signed: 10/18/23 15:44 EST Consent for Treatmenton 09-22 Consent for Treatment [id number] .[id number] [facility] Discharge Instructionson Discharge Instructions [id number] .[id number] [facility] ED Clinical Summaryon 2023 ED Clinical Summary Normal [facility] ED Note-Physicianon 10-15-19 ED Note-Physician [facility] Comment on above: Result Comment: Elec tronically Signed By: Mone Martinez DO\.br\Date and Time Signed: 10/15/23 06:52 EST ED Patient Education Noteon 10-15-2023 ED Patient Education Note [facility] ED Patient Summaryon 024 ED Patient Summary [facility] Calcium [Mass/volume] in Ser um or PlasmaOrdered By: Yesi Murphy on 10-13-2023 Calcium [Mass/Vol] 8.2 mg/dL 8.6-10.3 [facility] Carbon dioxide, total [Moles /volume] in Serum or PlasmaOrdered By: Yesi Murphy on 10-13-2023 CO2 [Moles/Vol] 33.7 mmol/L 21.0-31.0 [facility] Chloride [Moles/volume] in S raymond or PlasmaOrdered By: Yesi Murphy on 10-13-2023 Chloride [Moles/Vol] 100 mmol/L 98-107 [facility] Creatinine [Mass/volume] in Serum or PlasmaOrdered By: Yesi Murphy on 10-13-2023 Creatinine [Mass/Vol] 1.91 mg/dL 0.70-1.30 [facility] Glucose [Mass/volume] in Ser um or PlasmaOrdered By: Yesi Murphy on 10-13-2023 Glucose [Mass/Vol] 250 mg/dL 70-100 [facility] Comment on above: ADA recommended refe rence rangeRandom Glucose Reference Range is dependent on time and content of last meal. Glucose of more than 200 mg/dL in a nonstressed, ambulatory subject supports the diagnosis of Diabetes Mellitus. No Panel InformationOrdered By: Yesi Murphy on 10-13-2023 Estimated GFR (CKD-EPI) 38.661 mL/Min [facility] Creatinine Clearance (Chem N/A [facility] Potassium [Moles/volume] in Serum or PlasmaOrdered By: Yesi Murphy on 10-13-2023 Potassium [Moles/Vol] 4.3 mmol/L 3.5-5.1 [facility] Serum or plasma anion gap de terminationOrdered By: Yesi Murphy on 10-13-2023 Anion gap [Moles/Vol] 10.6 mmol/L 6.0-15.0 [facility] Sodium [Moles/volume] in Ser um or PlasmaOrdered By: Yesi Murphy on 10-13-2023 Sodium [Moles/Vol] 140 mmol/L 136-145 [facility] Urea nitrogen [Mass/volume] in Serum or PlasmaOrdered By: Yesi Murphy on 10-13-2023 Urea nitrogen [Mass/Vol] 52 mg/dL 7-25 [facility] Albumin [Mass/volume] in Ser um or Plasma by Bromocresol green (BCG) dye binding methoOrdered By: Gigi Cooper on 10-12-2023 Albumin BCG dye [Mass/Vol] 3.6 g/dL 3.5-5.7 [facility] Calcium [Mass/volume] in Ser um or PlasmaOrdered By: Gigi Cooper on 10-12-2023 Calcium [Mass/Vol] 8.8 mg/dL 8.6-10.3 [facility] Carbon dioxide, total [Moles /volume] in Serum or PlasmaOrdered By: Gigi Cooper on 10-12-2023 CO2 [Moles/Vol] 32.8 mmol/L 21.0-31.0 [facility] Chloride [Moles/volume] in S raymond or PlasmaOrdered By: Gigi Cooper on 10-12-2023 Chloride [Moles/Vol] 96 mmol/L 98-107 [facility] Creatinine [Mass/volume] in Serum or PlasmaOrdered By: Gigi Cooper on 10-12-2023 Creatinine [Mass/Vol] 1.95 mg/dL 0.70-1.30 [facility] Glucose Glucometer (BldC) [M ass/Vol]Ordered By: Yesi Murphy on 10-12-2023 Glucose [Mass/Vol] 224 mg/dL [facility] Comment on above: Random Glucose Refer ence Range is dependent on time and content of last meal. Glucose of more than 200 mg/dL in a nonstressed, ambulatory subject supports the diagnosis of Diabetes Mellitus. Glucose [Mass/volume] in Ser um or PlasmaOrdered By: Gigi Cooper on 10-12-2023 Glucose [Mass/Vol] 275 mg/dL 70-100 [facility] Comment on above: Delta: 157 on -[id number] recommended reference rangeRandom Glucose Reference Range is dependent on time and content of last meal. Glucose of more than 200 mg/dL in a nonstressed, ambulatory subject supports the diagnosis of Diabetes Mellitus. No Panel InformationOrdered By: Gigi Cooper on 10-12-2023 Estimated GFR (CKD-EPI) 37.711 mL/Min [facility] Creatinine Clearance (Chem 54.56 [facility] No Panel InformationOrdered By: Yesi Murphy on 10-12-2023 Bedside Glucose Comment Glu2: cleaned meter [facility] Phosphate [Mass/volume] in S raymond or PlasmaOrdered By: Gigi Cooper on 10-12-2023 Phosphate [Mass/Vol] 3.4 mg/dL 2.5-4.5 [facility] Potassium [Moles/volume] in Serum or PlasmaOrdered By: Gigi Cooper on 10-12-2023 Potassium [Moles/Vol] 3.9 mmol/L 3.5-5.1 [facility] Serum or plasma anion gap de terminationOrdered By: Gigi Cooper on 10-12-2023 Anion gap [Moles/Vol] 10.1 mmol/L 6.0-15.0 [facility] Sodium [Moles/volume] in Ser um or PlasmaOrdered By: Gigi Cooper on 10-12-2023 Sodium [Moles/Vol] 135 mmol/L 136-145 [facility] Urea nitrogen [Mass/volume] in Serum or PlasmaOrdered By: Gigi Cooper on 10-12-2023 Urea nitrogen [Mass/Vol] 48 mg/dL 7-25 [facility] Automated erythrocytes count in urine sediment (number/area)Ordered By: Gigi Cooper on 10-10-2023 RBC Auto (Urine sed) [#/Area] None seen [HPF] 0-4 [facility] Automated leukocytes count i n urine sediment (number/area)Ordered By: Gigi Cooper on 10-10-2023 WBC Auto (Urine sed) [#/Area] None seen [HPF] 0-4 [facility] Bilirubin Test strip Ql (U)O rdered By: Gigi Cooper on 10-10-2023 Bilirubin Ql (U) Negative Negative [facility] Color Auto (U)Ordered By: Tony Cooper on 10-10-2023 Color (U) Yellow Yellow [facility] Ketones Auto test strip (U) [Mass/Vol]Ordered By: Gigi Cooper on 10-10-2023 Ketones (U) [Mass/Vol] Negative Negative [facility] Laboratory - UrinalysisOrder ed By: Gigi Cooper on 10-10-2023 Hyaline casts LM Ql (Urine sed) 0-8 [LPF] 0-8 [facility] Nitrite Test strip Ql (U)Ord ered By: Gigi Cooper on 10-10-2023 Nitrite Ql (U) Negative Negative [facility] Protein Auto test strip (U) [Mass/Vol]Ordered By: Gigi Cooper on 10-10-2023 Protein (U) [Mass/Vol] 30 mg/dL Negative [facility] Specific gravity Auto test s trip (U) [Rel density]Ordered By: Gigi Cooper on 10-10-2023 Specific gravity (U) [Rel density] 1.008 1.001-1.030 [facility] Squamous epithelial cells de tection in urine sediment by light microscopyOrdered By: Gigi Cooper on 10-10-2023 Epithelial cells.squamous LM Ql (Urine sed) None seen [HPF] 0-2 [facility] Urine bacteria detection by automated methodOrdered By: Gigi Cooper on 10-10-2023 Bacteria Auto Ql (U) None seen None Seen [facility] Urine clarity by refractomet ry automatedOrdered By: Gigi Cooper on 10-10-2023 Clarity Refractometry automated (U) Clear Clear [facility] Urine glucose measurement by automated test strip (mass/volume)Ordered By: Gigi Cooper on 10-10-2023 Glucose Auto test strip (U) [Mass/Vol] Normal mg/dL Normal [facility] Urine hemoglobin detection b y automated test stripOrdered By: Gigi Cooper on 10-10-2023 Hemoglobin Auto test strip Ql (U) Negative Negative [facility] Urine leukocyte esterase det ection by automated test stripOrdered By: iGgi Cooper on 10-10-2023 Leukocyte esterase Auto test strip Ql (U) Negative Negative [facility] Urobilinogen Auto test strip (U) [Mass/Vol]Ordered By: Gigi Cooper on 10-10-2023 Urobilinogen (U) [Mass/Vol] Normal mg/dL Normal [facility] pH Auto test strip (U)Ordere d By: Gigi Cooper on 10-10-2023 pH (U) 5.0 [pH] 5.0-9.0 [facility] Magnesium [Mass/volume] in S raymond or PlasmaOrdered By: Ramses Masters on 10-09-2023 Magnesium [Mass/Vol] 2.0 mg/dL 1.9-2.7 [facility] Nursing Note - Woundon 10-09 Nursing Note - Wound [id number]# 1.00TIFF [facility] Creatinine [Mass/volume] in UrineOrdered By: Hood Zacarias on 10-08-2023 Creatinine (U) [Mass/Vol] 23.0 mg/dL 14.0-26.0 [facility] Protein [Mass/volume] in Uri neOrdered By: Hood Zacarias on 10-08-2023 Protein (U) [Mass/Vol] 40 mg/dL 0-9 [facility] Activated partial thrombopla stin time (aPTT) in platelet poor plasma by coagulation aOrdered By: Jason Mercado on 10-06-2023 aPTT Coag (PPP) [Time] 31.1 s 25.1-36.5 [facility] Comment on above: A hematocrit value g reater than 55% may lead to inaccurate results in coagulation testing. Patients having hematocrit values >55% require a special collection tube for coagulation studies. Please contact the laboratory at [phone] for redraw instructions. Automated erythrocytes count in urine sediment (number/area)Ordered By: Jason Mercado on 10-06-2023 RBC Auto (Urine sed) [#/Area] Innumerable [HPF] 0-4 [facility] Automated leukocytes count i n urine sediment (number/area)Ordered By: Jason Mercado on 10-06-2023 WBC Auto (Urine sed) [#/Area] 1-2 [HPF] 0-4 [facility] Bacterial blood cultureOrder ed By: Jason Mercado on 10-06-2023 Bacteria identified Cx Nom (Bld) NO GROWTH 5 DAYS [facility] Bacteria identified Cx Nom (Bld) NO GROWTH 5 DAYS [facility] Bacteria identified Cx Nom (Bld) NO GROWTH 5 DAYS [facility] Bacteria identified Cx Nom (Bld) NO GROWTH 5 DAYS [facility] Basophils Auto (Bld) [#/Vol] Ordered By: Jason Mercado on 10-06-2023 Basophils (Bld) [#/Vol] 0.1 10*3/uL 0.0-0.2 [facility] Basophils/100 WBC Auto (Bld) Ordered By: Jason Mercado on 10-06-2023 Basophils/100 WBC (Bld) 1.0 % . [facility] Bilirubin Test strip Ql (U)O rdered By: Jason Mercado on 10-06-2023 Bilirubin Ql (U) Negative Negative [facility] COVID CepheidOrdered By: Myra Mercado on 10-06-2023 SARS-CoV-2 (COVID-19) Ab IA Ql Negative Negative [facility] Comment on above: This is a duplicate FORVM Xpert Xpress CoV-2/Flu/RSV Plus RNA by RT-PCR result to be used for statistical tracking purpose only. SARS-CoV-2 (COVID-19) RNA ERIBERTO+probe Ql (Unsp spec) [facility] SARS-CoV-2 (COVID-19) RNA ERIBERTO+probe Ql (Unsp spec) [facility] Calcium [Mass/volume] in Ser um or PlasmaOrdered By: Jason Mercado on 10-06-2023 Calcium [Mass/Vol] 8.7 mg/dL 8.6-10.3 [facility] Carbon dioxide, total [Moles /volume] in Serum or PlasmaOrdered By: Jason Mercado on 10-06-2023 CO2 [Moles/Vol] 28.2 mmol/L 21.0-31.0 [facility] Chloride [Moles/volume] in S raymond or PlasmaOrdered By: Jason Mercado on 10-06-2023 Chloride [Moles/Vol] 102 mmol/L 98-107 [facility] Color Auto (U)Ordered By: Harpal Mercado on 10-06-2023 Color (U) Yellow Yellow [facility] Creatine kinase [Enzymatic a ctivity/volume] in Serum or PlasmaOrdered By: Jason Mercado on 10-06-2023 CK [Catalytic activity/Vol] 60 U/L 30-223 [facility] Creatinine [Mass/volume] in Serum or PlasmaOrdered By: Jason Mercado on 10-06-2023 Creatinine [Mass/Vol] 1.86 mg/dL 0.70-1.30 [facility] Eosinophils Auto (Bld) [#/Vo l]Ordered By: Jason Mercado on 10-06-2023 Eosinophils (Bld) [#/Vol] 0.2 10*3/uL 0.0-0.45 [facility] Eosinophils/100 WBC Auto (Bl d)Ordered By: Jason Mercado on 10-06-2023 Eosinophils/100 WBC (Bld) 3.0 % . [facility] Erythrocyte distribution wid th Auto (RBC) [Ratio]Ordered By: Jason Mercado on 10-06-2023 Erythrocyte distribution width (RBC) [Ratio] 18.3 % 12.0-14.8 [facility] Glucose [Mass/volume] in Ser um or PlasmaOrdered By: Jason Mercado on 10-06-2023 Glucose [Mass/Vol] 243 mg/dL 70-100 [facility] Comment on above: ADA recommended refe rence rangeRandom Glucose Reference Range is dependent on time and content of last meal. Glucose of more than 200 mg/dL in a nonstressed, ambulatory subject supports the diagnosis of Diabetes Mellitus. Hematocrit Auto (Bld) [Volum e fraction]Ordered By: Jason Mercado on 10-06-2023 Hematocrit (Bld) [Volume fraction] 40.5 % 38.8-50.0 [facility] Hemoglobin [Mass/volume] in BloodOrdered By: Jason Mercado on 10-06-2023 Hemoglobin (Bld) [Mass/Vol] 12.9 g/dL 13.0-17.0 [facility] INR in Platelet poor plasma by Coagulation assayOrdered By: Jason Mercado on 10-06-2023 INR Coag (PPP) [Relative time] 1.0 {INR} [facility] Comment on above: INR Therapeutic Rang e [...] on 10-06-2023 Ketones (U) [Mass/Vol] Negative Negative [facility] Laboratory - Chemistry and C hemistry - challengeOrdered By: Jason Mercado on 10-06-2023 CO2 [Moles/Vol] 30.8 mmol/L 24.0-29.0 [facility] HCO3 (Bld) [Moles/Vol] 28.8 mmol/L 23.0-29.0 [facility] Laboratory - UrinalysisOrder ed By: Jason Mercado on 10-06-2023 Hyaline casts LM Ql (Urine sed) 0-8 [LPF] 0-8 [facility] Lactate [Moles/volume] in Se rum or PlasmaOrdered By: Jason Mercado on 10-06-2023 Lactate [Moles/Vol] 0.7 mmol/L 0.5-2.2 [facility] Leukocytes [#/volume] correc maria guadalupe for nucleated erythrocytes in Blood by Automated counOrdered By: Jason Mercado on 10-06-2023 WBC corrected for nucl RBC Auto (Bld) [#/Vol] 7.0 10*3/uL 4.1-10.5 [facility] Lymphocytes Auto (Bld) [#/Vo l]Ordered By: Jason Mercado on 10-06-2023 Lymphocytes (Bld) [#/Vol] 0.8 10*3/uL 1.00-4.8 [facility] Lymphocytes/100 WBC Auto (Bl d)Ordered By: Jason Mercado on 10-06-2023 Lymphocytes/100 WBC (Bld) 11.2 % . [facility] MCH Auto (RBC) [Entitic mass ]Ordered By: Jason Mercado on 10-06-2023 MCH (RBC) [Entitic mass] 27.3 pg 27.5-35.2 [facility] MCHC Auto (RBC) [Mass/Vol]Or dered By: Jason Mercado on 10-06-2023 MCHC (RBC) [Mass/Vol] 31.9 g/dL 32.5-35.6 [facility] MCV Auto (RBC) [Entitic vol] Ordered By: Jason Mercado on 10-06-2023 MCV (RBC) [Entitic vol] 85.6 fL 83.5-101 [facility] Monocyte distribution width [Entitic volume] in Blood by AutomatedOrdered By: Jason Mercado on 10-06-2023 Monocyte distribution width Auto (Bld) [Entitic vol] 17.40 % 0.00-20.00 [facility] Monocytes Auto (Bld) [#/Vol] Ordered By: Jason Mercado on 10-06-2023 Monocytes (Bld) [#/Vol] 0.7 10*3/uL 0.0-0.8 [facility] Monocytes/100 WBC Auto (Bld) Ordered By: Jason Mercado on 10-06-2023 Monocytes/100 WBC (Bld) 10.0 % . [facility] Natriuretic peptide B [Mass/ Vol]Ordered By: Jason Mercado on 10-06-2023 Natriuretic peptide B (Bld) [Mass/Vol] 131.0 pg/mL 5-100 [facility] Neutrophils Auto (Bld) [#/Vo l]Ordered By: Jason Mercado on 10-06-2023 Neutrophils (Bld) [#/Vol] 5.2 10*3/uL 1.8-7.7 [facility] Neutrophils/100 WBC Auto (Bl d)Ordered By: Jason Mercado on 10-06-2023 Neutrophils/100 WBC (Bld) 74.8 % . [facility] Nitrite Test strip Ql (U)Ord ered By: Jason Mercado on 10-06-2023 Nitrite Ql (U) Negative Negative [facility] No Panel InformationOrdered By: Jason Mercado on 10-06-2023 Blood Gas Critical Value See comment [facility] Comment on above: Critical Value dickerson d on: 10/06/2023 at 21:16 Blood Gas Liter Flow 6 [facility] Blood Gas Sample Site Venous [facility] FiO2 45% % [facility] Oxygen Delivery Device Nasal cannula [facility] Venous Blood Base Excess 0.4 mmol/L -3.0-3.0 [facility] Venous Blood Oxygen Saturation 81.5 % 73.0-76.0 [facility] Venous Blood Partial Pressure CO2 63.9 mm[Hg] 38.0-50.0 [facility] Venous Blood pH 7.27 7.32-7.43 [facility] Estimated GFR (CKD-EPI) 39.912 mL/Min [facility] Pharmacy Creatinine Clearance (Chem 57.52 [facility] Nucleated erythrocytes [Pres ence] in Blood by Automated countOrdered By: Jason Mercado on 10-06-2023 Nucleated RBC Auto Ql (Bld) 0.1 /100{WBC} 0-0.5 [facility] Platelet mean volume Auto (B ld) [Entitic vol]Ordered By: Jason Mercado on 10-06-2023 Platelet mean volume (Bld) [Entitic vol] 6.8 fL 6.6-10.1 [facility] Platelets Auto (Bld) [#/Vol] Ordered By: Jason Mercado on 10-06-2023 Platelets (Bld) [#/Vol] 236 10*3/uL 150-450 [facility] Potassium [Moles/volume] in Serum or PlasmaOrdered By: Jason Mercado on 10-06-2023 Potassium [Moles/Vol] 5.6 mmol/L 3.5-5.1 [facility] Protein Auto test strip (U) [Mass/Vol]Ordered By: Jason Mercado on 10-06-2023 Protein (U) [Mass/Vol] 100 mg/dL Negative [facility] Prothrombin time (PT)Ordered By: Jason Mercado on 10-06-2023 PT Coag (PPP) [Time] 11.4 s 9.0-12.9 [facility] Comment on above: A hematocrit value g reater than 55% may lead to inaccurate results in coagulation testing. Patients having hematocrit values >55% require a special collection tube for coagulation studies. Please contact the laboratory at [phone] for redraw instructions. RBC Auto (Bld) [#/Vol]Ordere d By: Jason Mercado on 10-06-2023 RBC (Bld) [#/Vol] 4.73 10*6/uL 3.90-5.60 [facility] Serum or plasma anion gap de terminationOrdered By: Jason Mercado on 10-06-2023 Anion gap [Moles/Vol] 10.4 mmol/L 6.0-15.0 [facility] Sodium [Moles/volume] in Ser um or PlasmaOrdered By: Jason Mercado on 10-06-2023 Sodium [Moles/Vol] 135 mmol/L 136-145 [facility] Specific gravity Auto test s trip (U) [Rel density]Ordered By: Jason Mercado on 10-06-2023 Specific gravity (U) [Rel density] 1.013 1.001-1.030 [facility] Squamous epithelial cells de tection in urine sediment by light microscopyOrdered By: Jason Mercado on 10-06-2023 Epithelial cells.squamous LM Ql (Urine sed) 0-1 [HPF] 0-2 [facility] Troponin I.cardiac [Mass/vol ume] in Serum or Plasma by Detection limit <= 0.01 ng/Ordered By: Jason Mercado on 10-06-2023 Troponin I.cardiac DL <= 0.01 ng/mL [Mass/Vol] 8.2 pg/mL 0.0-20.0 [facility] Urea nitrogen [Mass/volume] in Serum or PlasmaOrdered By: Jason Mercado on 10-06-2023 Urea nitrogen [Mass/Vol] 53 mg/dL 7-25 [facility] Urine bacteria detection by automated methodOrdered By: Jason Mercado on 10-06-2023 Bacteria Auto Ql (U) None seen None Seen [facility] Urine clarity by refractomet ry automatedOrdered By: Jason Mercado on 10-06-2023 Clarity Refractometry automated (U) Clear Clear [facility] Urine glucose measurement by automated test strip (mass/volume)Ordered By: Jason Mercado on 10-06-2023 Glucose Auto test strip (U) [Mass/Vol] 100 mg/dL Normal [facility] Urine hemoglobin detection b y automated test stripOrdered By: Jason Mercado on 10-06-2023 Hemoglobin Auto test strip Ql (U) 3+ Negative [facility] Urine leukocyte esterase det ection by automated test stripOrdered By: Jason Mercado on 10-06-2023 Leukocyte esterase Auto test strip Ql (U) Negative Negative [facility] Urobilinogen Auto test strip (U) [Mass/Vol]Ordered By: Jason Mercado on 10-06-2023 Urobilinogen (U) [Mass/Vol] Normal mg/dL Normal [facility] WBC Auto (Bld) [#/Vol]Ordere d By: Jason Mercado on 10-06-2023 WBC (Bld) [#/Vol] 7.0 10*3/uL 4.1-10.5 [facility] pH Auto test strip (U)Ordere d By: Jason Mercado on 10-06-2023 pH (U) 5.0 [pH] 5.0-9.0 [facility] Ambulatory Visit Summaryon 0 10-05-2023 Ambulatory Visit Summary Normal [address], [address] [place] [address]- \.br\ 2023 9:00 AM EDT \.br\ With:\.br\ Where: [facility]\.br\ Monday 1:15 PM EDT [...] day\.br\ Unchanged Misc Prescription (Freestyle Sage 2 [place]) See instructions Use daily with sensor \.br\ Unchanged Misc Prescription (Freestyle Sage 2 Sensors) See instructions Apply one q 14 days \.br\ Unchanged Misc Prescription (Glucometer test strips) See instructions Test TID DX E11.40 on insulin \.br\ Unchanged Misc Prescription (Glucometer) See instructions Diabetes mellitus with neuropathy Dispense 1 Glucometer \.br\ Unchanged Misc Prescription (Insulin Pen Lawrence 31g x 8 mm) See instructions Use [...] for choosing us for your care.\.br\ \.br\ [facility] Consent for Procedure/Surger yon 10-05-2023 Consent for Procedure/Surgery [id number]#1 .00TIFF Normal [facility] Consent for Treatmenton 09-21 Consent for Treatment [id number]#1 .00TIFF Normal [facility] HBOon 10-04-2023 HBO [id number]# 1.00TIFF [facility] Multi-Wound Charton 10-04-19 Multi-Wound Chart [id number]# 1.00TIFF [facility] Nursing Assessment - Woundon 10-04-2023 Nursing Assessment - Wound [id number]# 1.00TIFF [facility] Nursing Note - Woundon 10-04 Nursing Note - Wound [id number]# 1.00TIFF [facility] Physician Orderon 10-04-2023 Physician Order [id number]# 1.00TIFF [facility] Physician Order [id number]# 2.00TIFF [facility] Procedure - Woundon 10-04-19 Procedure - Wound [id number]# 1.00TIFF [facility] Progress Note - Woundon 09-21 Progress Note - Wound [id number]# 2.00TIFF [facility] Screenson 10-03-2023 Screens [id number]# [facility] CHEMISTRYOrdered By: Lab ROP User on 10-02-2023 Glucose [Mass/Vol] 224 mg/dL High 55 - 99 mg/dL [facility] C POC Subsection POC Device SN [id number] 1 Invalid Interpretation Code [facility] POC Subsection POC User ID [id number] 1 Invalid Interpretation Code [facility] POC Subsection POC Username HernandoDeja Invalid Interpretation Code [facility] POC Subsection Capillary Glucose POCon 09-21 Glucose [Mass/Vol] 224 mg/dL High 55-99 [facility] Comment on above: Performed By: #### 2 [id number] ####[facility] [address] [place] [address] Patient Educationon 10-02-19 24 Patient Education [facility] Pre-Certification Formon Pre-Certification Form [id number]#1 .00TIFF Normal [facility] Urology Office/Clinic Noteon 10-02-2023 Urology Office/Clinic Note Normal [facility] Comment on above: Result Comment: Elec tronically Signed By: BRYAN Bahena APRN, Gisselle Glasgow\brenda\Date and Time Signed: 10/02/23 07:51 EST Consent for Procedure/Surger yon 09-28-2023 Consent for Procedure/Surgery [id number]#1 .00TIFF Normal [facility] Correspondence - Woundon Correspondence - Wound [id number]#1 .00TIFF [facility] Correspondence - Wound [id number]#1 .00TIFF [facility] Coding Queryon 09-27-2023 Coding Query [id number]# 1.00TIFF [facility] Insurance Correspondenceon 0 09-27-2023 Insurance Correspondence [id number]#1 .00TIFF [facility] C Urineon 09-26-2023 Bacteria identified Cx Nom (U) Normal [facility] Comment on above: Performed By: #### 2 612265, [id number] ####[facility] [address] [place] [address] Insurance Correspondenceon 0 09-25-2023 Insurance Correspondence [id number]#1 .00TIFF [facility] BMPon 09-24-2023 Anion gap [Moles/Vol] 11 mmol/L Normal 6-16 [facility] Comment on above: Performed By: #### 1 1729091, 0052871, 2909636 ####[facility] [address] [place] [address] BUN/Creat Ratio 29 No Units High 10-20 [facility] Comment on above: Performed By: #### 1 2102709, 4258049, 8185294 ####[facility] [address] [place] [address] Calcium [Mass/Vol] 8.7 mg/dL Low 8.9-11.1 [facility] Comment on above: Performed By: #### 1 6904349, 2370890, 0522204 ####[facility] [address] [place] [address] Chloride [Moles/Vol] 103 mmol/L Normal 101-111 [facility] Comment on above: Performed By: #### 1 6500908, 2353982, 1180172 ####[facility] [address] [place] [address] CO2 [Moles/Vol] 28 mmol/L Normal 21-31 [facility] Comment on above: Performed By: #### 1 2818362, 2156904, 8860309 ####[facility] [address] [place] [address] Creatinine [Mass/Vol] 1.7 mg/dL High 0.5-1.3 [facility] Comment on above: Performed By: #### 1 2707775, 1543256, 3535473 ####[facility] [address] [place] [address] Glucose [Mass/Vol] 280 mg/dL High 55-199 [facility] Comment on above: Performed By: #### 1 8549932, 4407840, 8539925 ####[facility] [address] [place] [address] Potassium [Moles/Vol] 4.9 mmol/L Normal 3.5-5.3 [facility] Comment on above: Performed By: #### 1 8879648, 3790818, 7725720 ####[facility] [address] [place] [address] Sodium [Moles/Vol] 137 mmol/L Normal 135-145 [facility] Comment on above: Performed By: #### 1 7047909, 1562666, 4928218 ####[address] [place] [address] Urea nitrogen [Mass/Vol] 50 mg/dL High 5-21 [facility] Comment on above: Performed By: #### 1 1651936, 0891053, 9325471 ####[address] [address] CBC w/ Auto Diffon 4 Basophil Absolute 0.0 E9/L Normal 0.0-0.2 [facility] Comment on above: Performed By: #### 1 3241654, 8104667, 0770481 ####[place] [address] Basophils/100 WBC (Bld) 0.5 % Normal 0.0-2.0 [facility] Comment on above: Performed By: #### 1 5318991, 9432958, 5987163 ####[place] [address] Eos Absolute 0.3 E9/L Normal 0.0-0.5 [facility] Comment on above: Performed By: #### 1 5025794, 7965510, 0877995 ####[address] [address] Eosinophils/100 WBC (Bld) 4.7 % Normal 0.0-8.0 [facility] Comment on above: Performed By: #### 1 4758011, 9656482, 2719113 ####[address] [address] Erythrocyte distribution width (RBC) [Ratio] 17.8 % High 10.9-14.2 [facility] Comment on above: Performed By: #### 1 0728645, 9805457, 0717122 ####[address] [address] Hematocrit (Bld) [Volume fraction] 44.0 % Normal 37.7-49.0 [facility] Comment on above: Performed By: #### 1 1675075, 6393905, 8395840 ####[address] [address] Hemoglobin (Bld) [Mass/Vol] 13.9 g/dL Normal 13.5-17.5 [facility] Comment on above: Performed By: #### 1 7681943, 0052171, 9205286 ####[address] [address] Lymph Absolute 1.1 E9/L Normal 1.0-4.0 [facility] Comment on above: Performed By: #### 1 5699027, 1048527, 6649658 ####[address] [address] Lymphocytes/100 WBC (Bld) 20.1 % Normal 14.0-50.0 [facility] Comment on above: Performed By: #### 1 3503207, 5150282, 1572233 ####[address] [address] MCH (RBC) [Entitic mass] 27.3 pg Normal 27.0-34.0 [facility] Comment on above: Performed By: #### 1 2732306, 3540233, 3416023 ####[address] [address] MCHC (RBC) [Mass/Vol] 31.9 g/dL Normal 31.4-36.0 [facility] Comment on above: Performed By: #### 1 7906774, 1203639, 1098291 ####[address] [address] MCV (RBC) [Entitic vol] 85.7 fL Normal 80.0-100.0 [facility] Comment on above: Performed By: #### 1 6818527, 9830513, 0172429 ####[address] [address] Stanly Absolute 0.6 E9/L Normal 0.2-1.0 [facility] Comment on above: Performed By: #### 1 1893814, 2158951, 4213087 ####[address] [address] Monocytes/100 WBC (Bld) 11.0 % Normal 4.0-14.0 [facility] Comment on above: Performed By: #### 1 8183922, 0161811, 0829472 ####[address] [address] Neutro Absolute 3.5 E9/L Normal 2.0-7.5 [facility] Comment on above: Performed By: #### 1 2878518, 7615410, 2387694 ####[address] [address] Neutro Auto 63.7 % Normal 36.0-75.0 [facility] Comment on above: Performed By: #### 1 6987914, 2303376, 4585078 ####[address] [address] Platelet 254.0 E9/L Normal 150.0-500.0 [facility] Comment on above: Performed By: #### 1 0695828, 8116335, 1987402 ####[address] [address] Platelet mean volume (Bld) [Entitic vol] 6.9 fL Normal 6.4-10.8 [facility] Comment on above: Performed By: #### 1 9245344, 8118629, 8976623 ####[address] [address] RBC 5.1 E12/L Normal 4.3-5.9 [facility] Comment on above: Performed By: #### 1 6809731, 2543521, 7922658 ####[address] [address] WBC 5.5 E9/L Normal 4.0-11.0 [facility] Comment on above: Performed By: #### 1 6896254, 9912503, 2621608 ####[facility] [place] [address] CHEMISTRYOrdered By: SYSTEM SYSTEM on 09-24-2023 Anion [...] Chem Consent for Treatmenton Consent for Treatment [id number]#1 .00TIFF Normal [facility] Discharge Instructionson Discharge Instructions [id number]# 1.00TIFF Normal [facility] ED Clinical Summaryon 2023 ED Clinical Summary Normal [facility] ED Note-Physicianon 09-24-19 24 ED Note-Physician Normal [facility] Comment on above: Result Comment: Elec tronically Signed By: Jose Miguel Phan DO.br\Date and Time Signed: 09/24/23 21:39 EST ED Patient Education Noteon 09-24-2023 ED Patient Education Note Normal [facility] ED Patient Summaryon 024 ED Patient Summary Normal [facility] HEMATOLOGYOrdered By: SYSTEM SYSTEM on 09-24-2023 [...] Normal 80.0 - 100.0 fL Remisol Heme Stanly Absolute 0.6 E9/L Normal 0.2 - 1.0 [...] Urobilinogen Qn (U) 0.2 {Itz'U}/dL Normal 0.0-1.0 [facility] Comment on above: Performed By: #### 2 169972, 53059209 ####[facility] [address] [place] [address] Bacteria LM Ql (Urine sed) TRACE Normal Trace [facility] Comment on above: Performed By: #### 2 788640, 98612072 ####[facility] [address] [place] [address] Bilirubin Ql (U) 1+ Abnormal Negative [facility] Comment on above: Performed By: #### 2 268312, 98796054 ####[facility] [address] [place] [address] Clarity (U) CLOUDY Abnormal Clear [facility] Comment on above: Performed By: #### 2 419335, 99647989 ####[facility] [address] [facility] [place] [address] Color (U) RED Abnormal Yellow [facility] Comment on above: Performed By: #### 2 202569, 25350269 ####[facility] [address] [place] [address] Epithelial cells.squamous LM.HPF (Urine sed) [#/Area] 3-4 Normal 0-2 [facility] Comment on above: Performed By: #### 2 202353, 20609548 ####[facility] [address] [place] [address] Glucose Test strip (U) [Mass/Vol] 2+ Abnormal Negative [facility] Comment on above: Performed By: #### 2 009499, 09075876 ####[facility] [address] [facility] [place] [address] Hemoglobin Ql (U) 3+ Abnormal Negative [facility] Comment on above: Performed By: #### 2 760821, 43440593 ####[address] [place] [address] Ketones (U) [Mass/Vol] Negative Normal Negative [facility] Comment on above: Performed By: #### 2 987022, 04311080 ####[address] [address] Istachatta.plasma/Lithi um.RBC (Bld) [Mass ratio] >75 Abnormal 0-3 [facility] Comment on above: Performed By: #### 2 850990, 18422609 ####[address] [address] Nitrite Ql (U) Positive Abnormal Negative [facility] Comment on above: Performed By: #### 2 801741, 45295194 ####[address] [address] pH (U) 5.5 [pH] Invalid Interpretation Code 5.0-9.0 [facility] Comment on above: Performed By: #### 2 737698, 26817425 ####[address] [address] Protein (U) [Mass/Vol] 3+ Abnormal Negative [facility] Comment on above: Performed By: #### 2 572460, 28265101 ####[place] [address] Specific gravity (U) [Rel density] 1.025 Invalid Interpretation Code 1.005-1.030 [facility] Comment on above: Performed By: #### 2 381422, 01062085 ####[address] [address] Type of Urine collection method Catheter Normal [facility] Comment on above: Performed By: #### 2 775306, 25168094 ####[address] [address] WBC Auto Ql (U) Negative Normal Negative [facility] Comment on above: Performed By: #### 2 048972, 85298462 ####[place] [address] WBC LM.HPF (Urine sed) [#/Area] 0-5 Normal 0-5 [facility] Comment on above: Performed By: #### 2 347472, 02314651 ####[facility] [address] [place] [address] URINALYSISOrdered By: Richa Quinn on 09-24-2023 Bacteria [...] PM) Normal Negative [facility] UA Auto SS Istachatta.plasma/Lithi um.RBC (Bld) [Mass ratio] >75 /HPF Invalid [...] Spec Desc Catheter (2/4/24 8:26 PM) Normal [facility] UA Auto SS Urobilinogen Qn (U) 0.2795914 {Itz'U}/dL Normal 0.0 - 1.0 EU/dL [facility] UA Auto SS WBC Auto Ql (U) Negative (09/24/23 8:26 PM) Normal Negative [facility] UA Auto SS WBC LM.HPF (Urine sed) [#/Area] 0-5 /HPF Normal 0-5/HPF [facility] UA Auto SS eGFRon 09-24-2023 eGFR 44 mL/min/1.73 m2 Low >=59 [facility] Comment on above: Order Comment: Order added by Discern Expert. Performed By: #### 1 6379306, 7911923, 7410059 ####[facility] [address] [place] [address] Insurance Correspondence Off iceon 09-20-2023 Insurance Correspondence Office [id number]# 1.00TIFF Normal [facility] C Blood Charcoalon Blood Culture Charcoal Normal [facility] Comment on above: Performed By: #### 1 8076012 ####[facility] [address] [place] [address] Discharge Instructionson Discharge Instructions [id number]# 1.00TIFF Normal [facility] Consent for Procedure/Surger yon 09-18-2023 Consent for Procedure/Surgery [id number]#1 .00TIFF Normal [facility] Consent for Treatmenton 08-22 Consent for Treatment [id number]#1 .00TIFF Normal [facility] Discharge Instructionson Discharge Instructions [id number] #1.00TIFF Normal [facility] ED Clinical Summaryon 2023 ED Clinical Summary Normal [facility] ED Note-Physicianon 09-17-19 24 ED Note-Physician Normal [facility] Comment on above: Result Comment: Elec tronically Signed By: Alejandro Silva M.D.\Date and Time Signed: 09/17/23 19:00 EST ED Patient Education Noteon 09-17-2023 ED Patient Education Note Normal [facility] ED Patient Summaryon 024 ED Patient Summary Normal [facility] BMPon 09-16-2023 Anion gap [Moles/Vol] 10 mmol/L Normal 6-16 [facility] Comment on above: Performed By: #### 2 473797, 57078442, 6099434, 8144072 ####[facility] [address] [place] [address] BUN/Creat Ratio 24 No Units High 10-20 [facility] Comment on above: Performed By: #### 2 656712, 31753851, 5628820, 7944976 ####[facility] [address] [place] [address] Calcium [Mass/Vol] 8.2 mg/dL Low 8.9-11.1 [facility] Comment on above: Performed By: #### 2 337760, 05518404, 2765500, 6432870 ####[facility] [address] [place] [address] Chloride [Moles/Vol] 97 mmol/L Low 101-111 [facility] Comment on above: Performed By: #### 2 266420, 51592556, 6956770, 4755746 ####[facility] [address] [place] [address] CO2 [Moles/Vol] 33 mmol/L High 21-31 [facility] Comment on above: Performed By: #### 2 062149, 87649404, 6015754, 3355272 ####[facility] [address] [place] [address] Creatinine [Mass/Vol] 1.6 mg/dL High 0.5-1.3 [facility] Comment on above: Performed By: #### 2 691497, 27950008, 6798761, 2578649 ####[facility] [address] [place] [address] Glucose [Mass/Vol] 191 mg/dL Normal 55-199 [facility] Comment on above: Performed By: #### 2 231952, 66871293, 5082554, 6647605 ####[facility] [address] [place] [address] Potassium [Moles/Vol] 4.0 mmol/L Normal 3.5-5.3 [facility] Comment on above: Performed By: #### 2 278936, 27537300, 7341898, 7167037 ####[address] [address] Sodium [Moles/Vol] 136 mmol/L Normal 135-145 [facility] Comment on above: Performed By: #### 2 831094, 70454937, 0496169, 6513852 ####[facility] [address] [place] [address] Urea nitrogen [Mass/Vol] 38 mg/dL High 5-21 [facility] Comment on above: Performed By: #### 2 698404, 34165961, 4793707, 1867647 ####[address] [address] CBC w/ Auto Diffon 4 Basophil Absolute 0.0 E9/L Normal 0.0-0.2 [facility] Comment on above: Performed By: #### 2 588353, 57328500, 9123244, 1938997 ####[address] [place] [address] Basophils/100 WBC (Bld) 0.7 % Normal 0.0-2.0 [facility] Comment on above: Performed By: #### 2 055742, 16739999, 6443648, 8977445 ####[address] [address] Eos Absolute 0.4 E9/L Normal 0.0-0.5 [facility] Comment on above: Performed By: #### 2 030755, 21577009, 9685048, 0956654 ####[address] [address] Eosinophils/100 WBC (Bld) 6.9 % Normal 0.0-8.0 [facility] Comment on above: Performed By: #### 2 694980, 57309282, 9467183, 0044208 ####[address] [address] Erythrocyte distribution width (RBC) [Ratio] 17.4 % High 10.9-14.2 [facility] Comment on above: Performed By: #### 2 541396, 45060268, 0354668, 4417720 ####[address] [address] Hematocrit (Bld) [Volume fraction] 44.0 % Normal 37.7-49.0 [facility] Comment on above: Performed By: #### 2 642444, 55207396, 2877051, 8427103 ####[address] [address] Hemoglobin (Bld) [Mass/Vol] 13.8 g/dL Normal 13.5-17.5 [facility] Comment on above: Performed By: #### 2 167238, 22205094, 4320383, 8733544 ####[address] [address] Lymph Absolute 1.4 E9/L Normal 1.0-4.0 [facility] Comment on above: Performed By: #### 2 015068, 92058422, 8950272, 0274787 ####[address] [address] Lymphocytes/100 WBC (Bld) 21.5 % Normal 14.0-50.0 [facility] Comment on above: Performed By: #### 2 613215, 02980497, 9174994, 6752092 ####[facility] [address] [place] [address] MCH (RBC) [Entitic mass] 27.0 pg Normal 27.0-34.0 [facility] Comment on above: Performed By: #### 2 842213, 80753214, 7453696, 4700194 ####[address] [address] MCHC (RBC) [Mass/Vol] 31.3 g/dL Low 31.4-36.0 [facility] Comment on above: Performed By: #### 2 110313, 95145345, 2650376, 1538306 ####[address] [address] MCV (RBC) [Entitic vol] 86.3 fL Normal 80.0-100.0 [facility] Comment on above: Performed By: #### 2 778135, 72613374, 5979580, 4216201 ####[address] [address] Stanly Absolute 0.8 E9/L Normal 0.2-1.0 [facility] Comment on above: Performed By: #### 2 067952, 02505530, 1434211, 0273552 ####[address] [address] Monocytes/100 WBC (Bld) 13.0 % Normal 4.0-14.0 [facility] Comment on above: Performed By: #### 2 639664, 65121411, 5841402, 7204242 ####[address] [place] [address] Neutro Absolute 3.8 E9/L Normal 2.0-7.5 [facility] Comment on above: Performed By: #### 2 466229, 65539430, 7249569, 9313303 ####[address] [address] Neutro Auto 57.9 % Normal 36.0-75.0 [facility] Comment on above: Performed By: #### 2 820759, 57145592, 1272860, 7942530 ####[facility] [address] [place] [address] Platelet 231.0 E9/L Normal 150.0-500.0 [facility] Comment on above: Performed By: #### 2 427261, 02022535, 6162934, 6953118 ####[facility] [address] [place] [address] Platelet mean volume (Bld) [Entitic vol] 7.0 fL Normal 6.4-10.8 [facility] Comment on above: Performed By: #### 2 724991, 75022887, 4092157, 8810745 ####[facility] [address] [place] [address] RBC 5.1 E12/L Normal 4.3-5.9 [facility] Comment on above: Performed By: #### 2 619088, 54800959, 5183873, 8089373 ####[facility] [address] [place] [address] WBC 6.5 E9/L Normal 4.0-11.0 [facility] Comment on above: Performed By: #### 2 401192, 04236193, 5640038, 8071302 ####[facility] [address] [place] [address] Capillary Glucose POCon 08-22 Glucose [Mass/Vol] 198 mg/dL High 55-99 [facility] Comment on above: Result Comment: Thelma maxwell RN/ Performed By: #### 2 [id number] ####[facility] [address] [place] [address] Inpatient Clinical Summaryon 09-16-2023 Inpatient Clinical Summary Normal [facility] Inpatient Patient Summaryon 09-16-2023 Inpatient Patient Summary Normal [facility] Inpatient Patient Summary Normal [facility] Interdisciplinary Note - Yimi e Manageron 09-16-2023 Interdisciplinary Note - Parole Director Patient DC before CRM rounded in room today Normal [facility] Comment on above: Result Comment: Elec tronically Signed By: Jodee Giang\.br\Date and Time Signed: 09/16/23 11:26 EST Magnesiumon 09-16-2023 Magnesium [Mass/Vol] 1.9 mg/dL Normal 1.3-2.4 [facility] Comment on above: Performed By: #### 2 854829, 67905090, 1652715, 2529483 ####[facility] [address] [place] [address] Monitor Recordon 09-16-2023 Monitor Record [id number]# 1.00TIFF Normal [facility] Monitor Record [id number]# 1.00TIFF Normal [facility] Monitor Record [id number]# 1.00TIFF Normal [facility] eGFRon 09-16-2023 eGFR 48 mL/min/1.73 m2 Low >=59 [facility] Comment on above: Order Comment: Order added by Discern Expert. Performed By: #### 2 610076, 00516859, 0418422, 6690637 ####[facility] [address] [place] [address] BMPon 09-15-2023 Anion gap [Moles/Vol] 8 mmol/L Normal 6-16 [facility] Comment on above: Performed By: #### 2 975155, 7895676, 41507550 ####[facility] [address] [place] [address] BUN/Creat Ratio 25 No Units High 10-20 [facility] Comment on above: Performed By: #### 2 305063, 4765731, 13454400 ####[facility] [address] [place] [address] Calcium [Mass/Vol] 8.4 mg/dL Low 8.9-11.1 [facility] Comment on above: Performed By: #### 2 364150, 6839861, 44902735 ####[facility] [address] [place] [address] Chloride [Moles/Vol] 94 mmol/L Low 101-111 [facility] Comment on above: Performed By: #### 2 611987, 3753278, 91242992 ####[facility] [address] [place] [address] CO2 [Moles/Vol] 38 mmol/L High 21-31 [facility] Comment on above: Performed By: #### 2 107357, 0591425, 44859373 ####[facility] [address]fnmvt521 [place] [address] Creatinine [Mass/Vol] 1.7 mg/dL High 0.5-1.3 [facility] Comment on above: Performed By: #### 2 567320, 2211503, 74406632 ####[address] [address] Glucose [Mass/Vol] 154 mg/dL Normal 55-199 [facility] Comment on above: Performed By: #### 2 868744, 2102494, 58686210 ####[address] [place] [address] Potassium [Moles/Vol] 4.1 mmol/L Normal 3.5-5.3 [facility] Comment on above: Performed By: #### 2 793852, 5992489, 54950497 ####[facility] [address] [place] [address] Sodium [Moles/Vol] 136 mmol/L Normal 135-145 [facility] Comment on above: Performed By: #### 2 206644, 1062430, 53058818 ####[facility] [address] [place] [address] Urea nitrogen [Mass/Vol] 43 mg/dL High 5-21 [facility] Comment on above: Performed By: #### 2 278485, 7596971, 76603924 ####[facility] [address] [place] [address] C [place] 09-15-2023 Wound Culture Normal [facility] Comment on above: Performed By: #### 2 043835 ####[address] [address] CBC w/ Auto Diffon Basophil Absolute 0.0 E9/L Normal 0.0-0.2 [facility] Comment on above: Performed By: #### 2 711697 ####[address] [address] Basophils/100 WBC (Bld) 0.6 % Normal 0.0-2.0 [facility] Comment on above: Performed By: #### 2 086501 ####[address] [address] Eos Absolute 0.3 E9/L Normal 0.0-0.5 [facility] Comment on above: Performed By: #### 2 461078 ####[address] [address] Eosinophils/100 WBC (Bld) 5.0 % Normal 0.0-8.0 [facility] Comment on above: Performed By: #### 2 967457 ####[address] [address] Erythrocyte distribution width (RBC) [Ratio] 17.9 % High 10.9-14.2 [facility] Comment on above: Performed By: #### 2 519302 ####[address] [address] Hematocrit (Bld) [Volume fraction] 45.0 % Normal 37.7-49.0 [facility] Comment on above: Performed By: #### 2 983825 ####[address] [address] Hemoglobin (Bld) [Mass/Vol] 14.3 g/dL Normal 13.5-17.5 [facility] Comment on above: Performed By: #### 2 984170 ####[facility] [address] [place] [address] Lymph Absolute 1.3 E9/L Normal 1.0-4.0 [facility] Comment on above: Performed By: #### 2 192242 ####[facility] [address] [place] [address], [place] [address] Lymphocytes/100 WBC (Bld) 19.3 % Normal 14.0-50.0 [facility] Comment on above: Performed By: #### 2 787964 ####[address] [address] MCH (RBC) [Entitic mass] 27.5 pg Normal 27.0-34.0 [facility] Comment on above: Performed By: #### 2 419702 ####[address] [address] MCHC (RBC) [Mass/Vol] 31.6 g/dL Normal 31.4-36.0 [facility] Comment on above: Performed By: #### 2 042854 ####[address] [address] MCV (RBC) [Entitic vol] 87.1 fL Normal 80.0-100.0 [facility] Comment on above: Performed By: #### 2 737744 ####[facility] [address] [place] [address] Stanly Absolute 0.7 E9/L Normal 0.2-1.0 [facility] Comment on above: Performed By: #### 2 234843 ####[address] [place] [address] Monocytes/100 WBC (Bld) 10.9 % Normal 4.0-14.0 [facility] Comment on above: Performed By: #### 2 323896 ####[address] [facility] [place] [address] Neutro Absolute 4.2 E9/L Normal 2.0-7.5 [facility] Comment on above: Performed By: #### 2 164547 ####[facility] [address] [facility] [place] [address] Neutro Auto 64.2 % Normal 36.0-75.0 [facility] Comment on above: Performed By: #### 2 159981 ####[facility] [address] [facility] [place] [address] Platelet 238.0 E9/L Normal 150.0-500.0 [facility] Comment on above: Performed By: #### 2 423444 ####[facility] [address] [place] [address] Platelet mean volume (Bld) [Entitic vol] 7.0 fL Normal 6.4-10.8 [facility] Comment on above: Performed By: #### 2 341392 ####[facility] [address] [facility] [place] [address] RBC 5.2 E12/L Normal 4.3-5.9 [facility] Comment on above: Performed By: #### 2 858551 ####[facility] [address] [facility] [address] WBC 6.6 E9/L Normal 4.0-11.0 [facility] Comment on above: Performed By: #### 2 737083 ####[facility] [address] [facility] [place] [address] Capillary Glucose POCon 08-22 Glucose [Mass/Vol] 230 mg/dL High 55-99 [facility] Comment on above: Performed By: #### 2 65569937 ####[facility] [address] [facility] [place] [address] Glucose [Mass/Vol] 187 mg/dL High 55-99 [facility] Comment on above: Result Comment: Thelma maxwell RN/ Performed By: #### 2 92082806 ####[facility] [address] [facility] [place] [address] Glucose [Mass/Vol] 281 mg/dL High 55-99 [facility] Comment on above: Result Comment: Thelma maxwell RN/ Performed By: #### 2 68443058 ####[facility] [address] [facility] [place] [address] Glucose [Mass/Vol] 298 mg/dL High 55-99 [facility] Comment on above: Result Comment: Thelma maxwell RN/ Performed By: #### 2 77620073 ####[facility] [address] [facility] [address] Glucose [Mass/Vol] 167 mg/dL High 55-99 [facility] Comment on above: Result Comment: Thelma maxwell RN/ Performed By: #### 2 02608503 ####[facility] [address] [facility] [place] [address] Interdisciplinary Note - Yimi e Manageron 09-15-2023 Interdisciplinary Note - Parole Director [facility] Comment on above: Result Comment: Elec tronically Signed By: Sasha Garcia\.br\Date and Time Signed: 09/15/23 15:52 EST Magnesiumon 09-15-2023 Magnesium [Mass/Vol] 1.7 mg/dL Normal 1.3-2.4 [facility] Comment on above: Performed By: #### 2 222718, 7371555, 37260891 ####[facility] [address] [place] [address] Progress Note-Physicianon Progress Note-Physician [facility] Comment on above: Result Comment: Elec tronically Signed By: Ida LYMAN, [facility] Raghavendra\.br\Date and Time Signed: 09/15/23 16:08 EST Progress Note-Physician Normal [facility] Comment on above: Result Comment: Elec tronically Signed By: Jose LYMAN, Kayla\.br\Date and Time Signed: 09/15/23 10:03 EST eGFRon 09-15-2023 eGFR 44 mL/min/1.73 m2 Low >=59 [facility] Comment on above: Order Comment: Order added by Discern Expert. Performed By: #### 2 910882, 4500724, 39947992 ####[facility] [address] [facility] [place] [address] BMPon 09-14-2023 Anion gap [Moles/Vol] 13 mmol/L Normal 6-16 [facility] Comment on above: Performed By: #### 2 273397, 34873399 ####[facility] [address] [place] [address] BUN/Creat Ratio 24 No Units High 10-20 [facility] Comment on above: Performed By: #### 2 626572, 92003839 ####[facility] [address] [place] [address] Calcium [Mass/Vol] 8.6 mg/dL Low 8.9-11.1 [facility] Comment on above: Performed By: #### 2 037339, 99617021 ####[facility] [address] [place] [address] Chloride [Moles/Vol] 94 mmol/L Low 101-111 [facility] Comment on above: Performed By: #### 2 870067, 64448067 ####[facility] [address] [address] CO2 [Moles/Vol] 33 mmol/L High 21-31 [facility] Comment on above: Performed By: #### 2 210305, 89211422 ####[facility] [address] [place] [address] Creatinine [Mass/Vol] 1.9 mg/dL High 0.5-1.3 [facility] Comment on above: Performed By: #### 2 182907, 60844167 ####[facility] [address] [place] [address] Glucose [Mass/Vol] 215 mg/dL High 55-199 [facility] Comment on above: Performed By: #### 2 606577, 57351235 ####[facility] [address] [place] [address] Potassium [Moles/Vol] 4.3 mmol/L Normal 3.5-5.3 [facility] Comment on above: Performed By: #### 2 506781, 67085331 ####[facility] [address] [place] [address] Sodium [Moles/Vol] 136 mmol/L Normal 135-145 [facility] Comment on above: Performed By: #### 2 164292, 56636906 ####[facility] [address] [place] [address] Urea nitrogen [Mass/Vol] 46 mg/dL High 5-21 [facility] Comment on above: Performed By: #### 2 428479, 40233252 ####[facility] [address] [place] [address] Anion gap [Moles/Vol] 9 mmol/L Normal 6-16 [facility] Comment on above: Performed By: #### 1 0724968, 8509464 ####[facility] [address] [place] [address] BUN/Creat Ratio 26 No Units High 10-20 [facility] Comment on above: Performed By: #### 1 8617327, 3527125 ####[facility] [address] [place] [address] Calcium [Mass/Vol] 8.7 mg/dL Low 8.9-11.1 [facility] Comment on above: Performed By: #### 1 3758126, 3927159 ####[facility] [address] [place] [address] Chloride [Moles/Vol] 96 mmol/L Low 101-111 [facility] Comment on above: Performed By: #### 1 5368412, 5683976 ####[facility] [address] [place] [address] CO2 [Moles/Vol] 35 mmol/L High 21-31 [facility] Comment on above: Performed By: #### 1 6715243, 2683924 ####[facility] [address] [facility] [place] [address] Creatinine [Mass/Vol] 1.8 mg/dL High 0.5-1.3 [facility] Comment on above: Performed By: #### 1 3768429, 9908050 ####[facility] [address] [place] [address] Glucose [Mass/Vol] 226 mg/dL High 55-199 [facility] Comment on above: Performed By: #### 1 3243896, 4532614 ####[facility] [address] [place] [address] Potassium [Moles/Vol] 4.4 mmol/L Normal 3.5-5.3 [facility] Comment on above: Performed By: #### 1 1404329, 7440947 ####[facility] [address] [place] [address] Sodium [Moles/Vol] 136 mmol/L Normal 135-145 [facility] Comment on above: Performed By: #### 1 6055356, 1191606 ####[facility] [address] [place] [address] Urea nitrogen [Mass/Vol] 46 mg/dL High 5-21 [facility] Comment on above: Performed By: #### 1 3868683, 0428207 ####[facility] [address]fum[address] [place] [address] Anion gap [Moles/Vol] 8 mmol/L Normal 6-16 [facility] Comment on above: Performed By: #### 2 155309, 6023883, 8629777, 74020859 ####[facility] [address] [place] [address] BUN/Creat Ratio 25 No Units High 10-20 [facility] Comment on above: Performed By: #### 2 661782, 0562623, 0387543, 70637674 ####[facility] [address] [place] [address] Calcium [Mass/Vol] 8.3 mg/dL Low 8.9-11.1 [facility] Comment on above: Performed By: #### 2 536392, 8872294, 2303679, 30266091 ####[facility] [address] [place] [address] Chloride [Moles/Vol] 97 mmol/L Low 101-111 [facility] Comment on above: Performed By: #### 2 991592, 7454713, 2434866, 61901262 ####[facility] [address] [place] [address] CO2 [Moles/Vol] 36 mmol/L High 21-31 [facility] Comment on above: Performed By: #### 2 394461, 8887316, 9551468, 39175340 ####[facility] [address] [place] [address] Creatinine [Mass/Vol] 1.9 mg/dL High 0.5-1.3 [facility] Comment on above: Performed By: #### 2 647059, 2946027, 3840138, 13133048 ####[facility] [address] [place] [address] Glucose [Mass/Vol] 172 mg/dL Normal 55-199 [facility] Comment on above: Performed By: #### 2 319022, 8362113, 2583031, 39544969 ####[facility] [address] [place] [address] Potassium [Moles/Vol] 4.5 mmol/L Normal 3.5-5.3 [facility] Comment on above: Performed By: #### 2 927283, 4338466, 0960137, 44643880 ####[facility] E[address] [place] [address] Sodium [Moles/Vol] 136 mmol/L Normal 135-145 [facility] Comment on above: Performed By: #### 2 033997, 9312829, 2962431, 47969236 ####[facility] [address] [place] [address] Urea nitrogen [Mass/Vol] 47 mg/dL High 5-21 [facility] Comment on above: Performed By: #### 2 831075, 9880052, 1996350, 98968301 ####[facility] [address] [place] [address] Anion gap [Moles/Vol] 10 mmol/L Normal 6-16 [facility] Comment on above: Performed By: #### 1 4578414, 9836098 ####[facility] [address] [place] [address] BUN/Creat Ratio 25 No Units High 10-20 [facility] Comment on above: Performed By: #### 1 7424427, 9467832 ####[facility] [address] [place] [address] Calcium [Mass/Vol] 8.3 mg/dL Low 8.9-11.1 [facility] Comment on above: Performed By: #### 1 5397096, 0204398 ####[facility] [address] [place] [address] Chloride [Moles/Vol] 96 mmol/L Low 101-111 [facility] Comment on above: Performed By: #### 1 4123828, 7040507 ####[facility] [address] [place] [address] CO2 [Moles/Vol] 35 mmol/L High 21-31 [facility] Comment on above: Performed By: #### 1 6308954, 0735899 ####[facility] [address] [place] [address] Creatinine [Mass/Vol] 1.9 mg/dL High 0.5-1.3 [facility] Comment on above: Performed By: #### 1 0452591, 2023696 ####[facility] [address] [place] [address] Glucose [Mass/Vol] 284 mg/dL High 55-199 [facility] Comment on above: Performed By: #### 1 6420323, 1356409 ####[facility] [address] [place] [address] Potassium [Moles/Vol] 4.6 mmol/L Normal 3.5-5.3 [facility] Comment on above: Performed By: #### 1 4938982, 8330865 ####[address] [place] [address] Sodium [Moles/Vol] 136 mmol/L Normal 135-145 [facility] Comment on above: Performed By: #### 1 7969899, 8749308 ####[address] [address] Urea nitrogen [Mass/Vol] 48 mg/dL High 5-21 [facility] Comment on above: Performed By: #### 1 0684538, 6058317 ####[address] [address] CBC w/ Auto Diffon 4 Basophil Absolute 0.1 E9/L Normal 0.0-0.2 [facility] Comment on above: Performed By: #### 2 378946, 2377533, 0553195, 61221302 ####[address] [address] Basophils/100 WBC (Bld) 1.0 % Normal 0.0-2.0 [facility] Comment on above: Performed By: #### 2 490439, 7409320, 8255199, 12255333 ####[address] [address] Eos Absolute 0.2 E9/L Normal 0.0-0.5 [facility] Comment on above: Performed By: #### 2 829921, 0769256, 9674587, 54373001 ####[address] [address] Eosinophils/100 WBC (Bld) 3.1 % Normal 0.0-8.0 [facility] Comment on above: Performed By: #### 2 988324, 2802840, 2365740, 75523760 ####[address] [address] Erythrocyte distribution width (RBC) [Ratio] 18.1 % High 10.9-14.2 [facility] Comment on above: Performed By: #### 2 977286, 3509458, 0226533, 89784192 ####[address] [place] [address] Hematocrit (Bld) [Volume fraction] 42.0 % Normal 37.7-49.0 [facility] Comment on above: Performed By: #### 2 297318, 2596153, 9101958, 21012067 ####[address] [address] Hemoglobin (Bld) [Mass/Vol] 13.3 g/dL Low 13.5-17.5 [facility] Comment on above: Performed By: #### 2 323910, 0974290, 0688985, 24444319 ####[address] [address] Lymph Absolute 1.9 E9/L Normal 1.0-4.0 [facility] Comment on above: Performed By: #### 2 903610, 7592517, 5319270, 84679167 ####[address] [address] Lymphocytes/100 WBC (Bld) 23.5 % Normal 14.0-50.0 [facility] Comment on above: Performed By: #### 2 405897, 5394316, 3468482, 76498084 ####[address] [address] MCH (RBC) [Entitic mass] 27.8 pg Normal 27.0-34.0 [facility] Comment on above: Performed By: #### 2 130311, 0010818, 0832674, 67346508 ####[address] [address] MCHC (RBC) [Mass/Vol] 31.7 g/dL Normal 31.4-36.0 [facility] Comment on above: Performed By: #### 2 427935, 0706061, 5579612, 05963306 ####[address] [address] MCV (RBC) [Entitic vol] 87.6 fL Normal 80.0-100.0 [facility] Comment on above: Performed By: #### 2 647796, 4007486, 7000309, 91039902 ####[facility] [address] [place] [address] Stan[place] Absolute 0.8 E9/L Normal 0.2-1.0 [facility] Comment on above: Performed By: #### 2 992994, 4295088, 4602159, 64379686 ####[address] [address] Monocytes/100 WBC (Bld) 10.0 % Normal 4.0-14.0 [facility] Comment on above: Performed By: #### 2 859318, 3217577, 5597797, 93217005 ####[address] [address] Neutro Absolute 5.0 E9/L Normal 2.0-7.5 [facility] Comment on above: Performed By: #### 2 097034, 2583853, 9028365, 58954303 ####[address] [address] Neutro Auto 62.4 % Normal 36.0-75.0 [facility] Comment on above: Performed By: #### 2 586069, 6881307, 1781020, 15338788 ####[address] [address] Platelet 217.0 E9/L Normal 150.0-500.0 [facility] Comment on above: Performed By: #### 2 481695, 8222564, 7403899, 63521739 ####[address] [address] Platelet mean volume (Bld) [Entitic vol] 6.8 fL Normal 6.4-10.8 [facility] Comment on above: Performed By: #### 2 974004, 2935191, 9347337, 29591631 ####[facility] [address] [place] [address] RBC 4.8 E12/L Normal 4.3-5.9 [facility] Comment on above: Performed By: #### 2 714256, 2066519, 4012880, 22138872 ####[facility] [address] [facility] [place] [address] WBC 7.9 E9/L Normal 4.0-11.0 [facility] Comment on above: Performed By: #### 2 276816, 6738791, 0008960, 79993617 ####[facility] [address] [place] [address] CT Abdomen/Pelvis w/o Contra ston 09-14-2023 CT Abdomen/Pelvis w/o Contrast Normal [facility] Capillary Glucose POCon 08-22 Glucose [Mass/Vol] 294 mg/dL High 55-99 [facility] Comment on above: Result Comment: Thelma BAE Performed By: #### 2 [id number] ####[facility] [address] [place] [address] Glucose [Mass/Vol] 244 mg/dL High 55-99 [facility] Comment on above: Result Comment: Thelma BAE Performed By: #### 2 [id number] ####[facility] [address] [place] [address] Glucose [Mass/Vol] 284 mg/dL High 55-99 [facility] Comment on above: Result Comment: Thelma BAE Performed By: #### 2 [id number] ####[facility] [address] [place] [address] Glucose [Mass/Vol] 164 mg/dL High 55-99 [facility] Comment on above: Result Comment: Thelma BAE Performed By: #### 2 [id number] ####[facility] [address]ab[address] [place] [address] Interdisciplinary Note - Yimi e Manageron 09-14-2023 Interdisciplinary Note - Parole Director Normal [facility] Comment on above: Result Comment: Elec tronically Signed By: Jodee Giang\.br\Date and Time Signed: 09/14/23 10:25 EST Interdisciplinary Note - Oscar n 09-14-2023 Interdisciplinary Note - OT [facility] score [facility] SNF. Patient requires assist w/ all transfers and adls when compared to baseline. Pt does live home alone. Inpatient OT services to follow daily to progress as tolerates w/ functional skills. Normal [facility] Magnesiumon 09-14-2023 Magnesium [Mass/Vol] 1.8 mg/dL Normal 1.3-2.4 [facility] Comment on above: Performed By: #### 2 863628, 1057402, 2123425, [id number] ####[facility] [address] [place] [address] Message from Medicareon 08-22 Message from Medicare [id number]# 1.00TIFF [facility] Monitor Recordon 09-14-2023 Monitor Record [id number]# 1.00TIFF [facility] Monitor Record [id number]# 1.00TIFF [facility] Progress Note-Physicianon Progress Note-Physician [facility] Comment on above: Result Comment: Elec tronically Signed By: Sasha Stevens NP\.br\Date and Time Signed: 09/14/23 15:54 EST\.br\Electronically Co-Signed By: Flakita Morgan MD\.br\Date and Time Co-Signed: 09/14/23 20:02 EST Progress Note-Physician [facility] Comment on above: Result Comment: Elec tronically Signed By: Shaquille Alex Jr., PA-C\.br\Date and Time Signed: 09/14/23 19:56 EST Progress Note-Physician [facility] Comment on above: Result Comment: Elec tronically Signed By: Rowdy LYMANUnruly\.br\Date and Time Signed: 09/14/23 19:53 EST Progress Note-Physician Normal [facility] Comment on above: Result Comment: Elec tronically Signed By: Kayla Garcia MD\.br\Date and Time Signed: 09/14/23 12:47 EST eGFRon 09-14-2023 eGFR 39 mL/min/1.73 m2 Low >=59 [facility] Comment on above: Order Comment: Order added by Discern Expert. Performed By: #### 2 165061, [id number] ####[facility] [address] [place] [address] eGFR 41 mL/min/1.73 m2 Low >=59 [facility] Comment on above: Order Comment: Order added by Discern Expert. Performed By: #### 1 [id number], 2402215 ####[facility] [address] [place] [address] eGFR 39 mL/min/1.73 m2 Low >=59 [facility] Comment on above: Order Comment: Order added by Discern Expert. Performed By: #### 2 333650, 9114250, 5998491, 30060240 ####[facility] [address] [place] [address] eGFR 39 mL/min/1.73 m2 Low >=59 [facility] Comment on above: Order Comment: Order added by Discern Expert. Performed By: #### 1 7196887, 5251774 ####[facility] [address]myonauuq[address] [place] [address] BMPon 09-13-2023 Anion gap [Moles/Vol] 9 mmol/L Normal 6-16 [facility] Comment on above: Performed By: #### 2 738183, [id number] ####[facility] [address] [place] [address] BUN/Creat Ratio 26 No Units High 10-20 [facility] Comment on above: Performed By: #### 2 910185, 81574666 ####[facility] [address] [place] [address] Calcium [Mass/Vol] 8.5 mg/dL Low 8.9-11.1 [facility] Comment on above: Performed By: #### 2 728279, 74225483 ####[facility] [address] [place] [address] Chloride [Moles/Vol] 96 mmol/L Low 101-111 [facility] Comment on above: Performed By: #### 2 012069, 37189236 ####[facility] [address]rynm[address] [place] [address] CO2 [Moles/Vol] 34 mmol/L High 21-31 [facility] Comment on above: Performed By: #### 2 307586, 78263758 ####[facility] Fje[address]ok[address] [place] [address] Creatinine [Mass/Vol] 2.0 mg/dL High 0.5-1.3 [facility] Comment on above: Performed By: #### 2 486569, [id number] ####[facility] [address]zglcb[address] [place] [address] Glucose [Mass/Vol] 340 mg/dL High 55-199 [facility] Comment on above: Performed By: #### 2 386400, 83274998 ####[facility] Tazdbmhrxh[address] [place] [address] Potassium [Moles/Vol] 5.0 mmol/L Normal 3.5-5.3 [facility] Comment on above: Performed By: #### 2 893327, 31604308 ####[facility] [address] [place] [address] Sodium [Moles/Vol] 134 mmol/L Low 135-145 [facility] Comment on above: Performed By: #### 2 880445, 89078832 ####[facility] [address]oc[address] [place] [address] Urea nitrogen [Mass/Vol] 51 mg/dL High 5-21 [facility] Comment on above: Performed By: #### 2 578090, 03856638 ####[facility] [address] [place] [address] Anion gap [Moles/Vol] 10 mmol/L Normal 6-16 [facility] Comment on above: Performed By: #### 1 8820120, 6963717 ####[facility] [address] [place] [address] BUN/Creat Ratio 26 No Units High 10-20 [facility] Comment on above: Performed By: #### 1 5358646, 5089093 ####[facility] [address]psgz[address]ioxm[address] [place] [address] Calcium [Mass/Vol] 8.6 mg/dL Low 8.9-11.1 [facility] Comment on above: Performed By: #### 1 9097745, 1783287 ####[facility] [address]qptdtx[address] [place] [address] Chloride [Moles/Vol] 100 mmol/L Low 101-111 [facility] Comment on above: Performed By: #### 1 2709835, 9980238 ####[facility] Tufuqxcmtp[address] [place] [address] CO2 [Moles/Vol] 33 mmol/L High 21-31 [facility] Comment on above: Performed By: #### 1 8903368, 9861115 ####[facility] [address] [place] [address] Creatinine [Mass/Vol] 2.0 mg/dL High 0.5-1.3 [facility] Comment on above: Performed By: #### 1 4861407, 2188428 ####[facility] [address] [place] [address] Glucose [Mass/Vol] 239 mg/dL High 55-199 [facility] Comment on above: Performed By: #### 1 8954545, 1430717 ####[facility] [address] [place] [address] Potassium [Moles/Vol] 5.0 mmol/L Normal 3.5-5.3 [facility] Comment on above: Performed By: #### 1 1517144, 5978682 ####[facility] [address] [place] [address] Sodium [Moles/Vol] 138 mmol/L Normal 135-145 [facility] Comment on above: Performed By: #### 1 4566825, 1531515 ####[facility] [address] [place] [address] Urea nitrogen [Mass/Vol] 51 mg/dL High 5-21 [facility] Comment on above: Performed By: #### 1 8823920, 3087495 ####[facility] [address] [place] [address] Anion gap [Moles/Vol] 10 mmol/L Normal 6-16 [facility] Comment on above: Performed By: #### 1 9801192, 7163789 ####[facility] [address]ls[address] [place] [address] BUN/Creat Ratio 26 No Units High 10-20 [facility] Comment on above: Performed By: #### 1 1833376, 6029645 ####[facility] [address]fich[address] [place] [address] Calcium [Mass/Vol] 8.7 mg/dL Low 8.9-11.1 [facility] Comment on above: Performed By: #### 1 0004710, 5245852 ####[facility] [address]scwj[address] [place] [address] Chloride [Moles/Vol] 101 mmol/L Normal 101-111 [facility] Comment on above: Performed By: #### 1 3549095, 7780612 ####[facility] [address]kwc[address] [place] [address] CO2 [Moles/Vol] 33 mmol/L High 21-31 [facility] Comment on above: Performed By: #### 1 5780975, 6176065 ####[facility] [address] [facility] [place] [address] Creatinine [Mass/Vol] 2.0 mg/dL High 0.5-1.3 [facility] Comment on above: Performed By: #### 1 2141410, 4096180 ####[facility] [address] [place] [address] Glucose [Mass/Vol] 149 mg/dL Normal 55-199 [facility] Comment on above: Performed By: #### 1 3806774, 8812451 ####[facility] [address] [place] [address] Potassium [Moles/Vol] 4.9 mmol/L Normal 3.5-5.3 [facility] Comment on above: Performed By: #### 1 4782661, 2386616 ####[facility] [address] [place] [address] Sodium [Moles/Vol] 139 mmol/L Normal 135-145 [facility] Comment on above: Performed By: #### 1 3985059, 4842720 ####[facility] [address] [place] [address] Urea nitrogen [Mass/Vol] 51 mg/dL High 5-21 [facility] Comment on above: Performed By: #### 1 8924304, 4096173 ####[facility] [address] [facility] [place] [address] Anion gap [Moles/Vol] 11 mmol/L Normal 6-16 [facility] Comment on above: Performed By: #### 2 264312, 05647280 ####[facility] [address] [facility] [place] [address] BUN/Creat Ratio 26 No Units High 10-20 [facility] Comment on above: Performed By: #### 2 191252, 29888174 ####[facility] [address] [place] [address] Calcium [Mass/Vol] 8.6 mg/dL Low 8.9-11.1 [facility] Comment on above: Performed By: #### 2 940332, 10140184 ####[facility] [address] [place] [address] Chloride [Moles/Vol] 103 mmol/L Normal 101-111 [facility] Comment on above: Performed By: #### 2 722218, 50080719 ####[facility] [address] [place] [address] CO2 [Moles/Vol] 31 mmol/L Normal 21-31 [facility] Comment on above: Performed By: #### 2 260333, 24182044 ####[facility] [address]jfxld[address] [place] [address] Creatinine [Mass/Vol] 2.1 mg/dL High 0.5-1.3 [facility] Comment on above: Performed By: #### 2 866442, 37219559 ####[facility] [address] [place] [address] Glucose [Mass/Vol] 154 mg/dL Normal 55-199 [facility] Comment on above: Performed By: #### 2 469442, 82265870 ####[facility] [address] [place] [address] Potassium [Moles/Vol] 5.2 mmol/L Normal 3.5-5.3 [facility] Comment on above: Performed By: #### 2 407210, 59887626 ####[facility] [address] [place] [address] Sodium [Moles/Vol] 140 mmol/L Normal 135-145 [facility] Comment on above: Performed By: #### 2 413560, 21623111 ####[facility] [address] [place] [address] Urea nitrogen [Mass/Vol] 54 mg/dL High 5-21 [facility] Comment on above: Performed By: #### 2 528995, 80617237 ####[facility] [address] [place] [address] Anion gap [Moles/Vol] 8 mmol/L Normal 6-16 [facility] Comment on above: Performed By: #### 2 579761, 6307770, 12139251 ####[facility] [address] [place] [address] BUN/Creat Ratio 25 No Units High 10-20 [facility] Comment on above: Performed By: #### 2 179593, 9880680, 41238676 ####[facility] [address] [place] [address] Calcium [Mass/Vol] 8.3 mg/dL Low 8.9-11.1 [facility] Comment on above: Performed By: #### 2 633320, 0562017, 73801417 ####[facility] [address] [place] [address] Chloride [Moles/Vol] 104 mmol/L Normal 101-111 [facility] Comment on above: Performed By: #### 2 106974, 3460770, 01380531 ####[facility] [address] [place] [address] CO2 [Moles/Vol] 33 mmol/L High 21-31 [facility] Comment on above: Performed By: #### 2 488844, 7038189, 79605488 ####[facility] A[address] [place] [address] Creatinine [Mass/Vol] 2.2 mg/dL High 0.5-1.3 [facility] Comment on above: Performed By: #### 2 076253, 3898430, 49870387 ####[facility] [address] [place] [address] Glucose [Mass/Vol] 170 mg/dL Normal 55-199 [facility] Comment on above: Performed By: #### 2 939831, 2788840, 31688336 ####[facility] [address] [place] [address] Potassium [Moles/Vol] 5.4 mmol/L High 3.5-5.3 [facility] Comment on above: Performed By: #### 2 695883, 5163909, 40512984 ####[facility] [address] [place] [address] Sodium [Moles/Vol] 140 mmol/L Normal 135-145 [facility] Comment on above: Performed By: #### 2 965964, 2648209, 35456179 ####[facility] [address] [place] [address] Urea nitrogen [Mass/Vol] 55 mg/dL High 5-21 [facility] Comment on above: Performed By: #### 2 432087, 9645565, 59482255 ####[facility] [address]arr[address] [place] [address] Anion gap [Moles/Vol] 10 mmol/L Normal 6-16 [facility] Comment on above: Performed By: #### 2 609601, 57304705 ####[facility] [address]uc[address] [place] [address] BUN/Creat Ratio 24 No Units High 10-20 [facility] Comment on above: Performed By: #### 2 870591, 21766963 ####[facility] [address] [place] [address] Calcium [Mass/Vol] 8.6 mg/dL Low 8.9-11.1 [facility] Comment on above: Performed By: #### 2 900237, 84155804 ####[facility] Szh[address]cilnz[address] [place] [address] Chloride [Moles/Vol] 105 mmol/L Normal 101-111 [facility] Comment on above: Performed By: #### 2 970514, 29440586 ####[facility] [address] [place] [address] CO2 [Moles/Vol] 30 mmol/L Normal 21-31 [facility] Comment on above: Performed By: #### 2 082191, 73537392 ####[facility] E[address]zb[address] [place] [address] Creatinine [Mass/Vol] 2.3 mg/dL High 0.5-1.3 [facility] Comment on above: Performed By: #### 2 333777, 55917622 ####[facility] [address] [place] [address] Glucose [Mass/Vol] 208 mg/dL High 55-199 [facility] Comment on above: Performed By: #### 2 305714, 34166912 ####[facility] [address] [place] [address] Potassium [Moles/Vol] 5.2 mmol/L Normal 3.5-5.3 [facility] Comment on above: Performed By: #### 2 842074, 28474972 ####[facility] Tpqx[address]ists[address] [place] [address] Sodium [Moles/Vol] 140 mmol/L Normal 135-145 [facility] Comment on above: Performed By: #### 2 201567, 89777847 ####[address] [address] Urea nitrogen [Mass/Vol] 54 mg/dL High 5-21 [facility] Comment on above: Performed By: #### 2 577332, 11352499 ####[facility] [address] [place] [address] Blood Gas Art, with Lytes, G hugh, [place] 09-13-2023 a/A Ratio Art 37.80 % Normal >=0.80 [facility] Comment on above: Performed By: #### 4 12302128 ####[facility] [address]lr[address] [place] [address] AaDO2 Art 150.0 mmHg High 5.0-15.0 [facility] Comment on above: Performed By: #### 4 45349321 ####[facility] [address] [place] [address] ACT. Rate 16 Invalid Interpretation Code [facility] Comment on above: Performed By: #### 4 [id number] ####[facility] T[address]350 [place] [address] Allens Test Positive Normal [facility] Comment on above: Performed By: #### 4 00890530 ####[facility] [address] [place] [address] Base Excess Arterial 6.3 mmol/L Normal >=2.8 [facility] Comment on above: Performed By: #### 4 97147289 ####[address] [place] [place] [address] BiPAP 09/04 Invalid Interpretation Code [facility] Comment on above: Performed By: #### 4 33750032 ####[address] [place] [address] cCa2+ Art 4.87 mg/dL Normal 4.40-5.30 [facility] Comment on above: Performed By: #### 4 44449182 ####[address] [address] cCl- Art 102.0 mmol/L Normal 101.0-111.0 [facility] Comment on above: Performed By: #### 4 23670229 ####[address] [address] cGlu Art 162 mg/dL High 55-99 [facility] Comment on above: Performed By: #### 4 36100333 ####[address] [address] cK+ Art 5.3 mmol/L Normal 3.5-5.3 [facility] Comment on above: Performed By: #### 4 35739807 ####[address] [address] cLac Art .7 mmol/L Normal .5-2.2 [facility] Comment on above: Performed By: #### 4 68244251 ####[address] [address] supervisor scrap preparation+ Art 143.0 mmol/L Normal 135.0-145.0 [facility] Comment on above: Performed By: #### 4 63113682 ####[address] [address] Drawn by tsb Invalid Interpretation Code [facility] Comment on above: Performed By: #### 4 80780268 ####[facility] [address] [place] [address] FCOHb Art 1.1 % Low 1.5-4.9 [facility] Comment on above: Result Comment: Refe rence rangeNonsmoker <1.5%Smoker <5.0%Heavy Smoker <9.0% Performed By: #### 4 64129077 ####[facility] [address] [place] [address] FIO2 BG 45.0 Invalid Interpretation Code [facility] Comment on above: Performed By: #### 4 86959027 ####[address] [address] FMetHb Art 0.5 % Normal 0.0-1.9 [facility] Comment on above: Performed By: #### 4 70067293 ####[address] [address] FO2Hb Art 95.9 % Normal 93.0-100.0 [facility] Comment on above: Performed By: #### 4 67049591 ####[address] [address] HCO3 (Bld) [Moles/Vol] 30.1 mmol/L High 22.0-26.0 [facility] Comment on above: Performed By: #### 4 52568653 ####[address] [address] Hemoglobin (Bld) [Mass/Vol] 14.3 g/dL Normal 12.0-17.0 [facility] Comment on above: Performed By: #### 4 98508208 ####[address] [place] [address] MECH. Rate 14 Invalid Interpretation Code [facility] Comment on above: Performed By: #### 4 [id number] ####[address] [address] MV 13 Invalid Interpretation Code [facility] Comment on above: Performed By: #### 4 92977132 ####[facility] [address]34 [place] [address] Oxygen saturation in Blood 97.5 % Normal 95.0-100.0 [facility] Comment on above: Performed By: #### 4 99254629 ####[address] [address] P CO2 Arterial 66.6 mmHg High 35.0-45.0 [facility] Comment on above: Performed By: #### 4 97876053 ####[address] [address] P O2 Arterial 91.1 mmHg Normal 80.0-100.0 [facility] Comment on above: Performed By: #### 4 64232883 ####[address] [address] pH Arterial 7.326 Low 7.350-7.450 [facility] Comment on above: Performed By: #### 4 86342244 ####[address] [address] Sample Site R Radial Normal [facility] Comment on above: Performed By: #### 4 [id number] ####[address] [address] Sample Type Arterial Draw Normal [facility] Comment on above: Performed By: #### 4 [id number] ####[address] [address] CBC w/ Auto Diffon 4 Basophil Absolute 0.0 E9/L Normal 0.0-0.2 [facility] Comment on above: Performed By: #### 2 468626, 3908364, 57851126 ####[address] [address] Basophils/100 WBC (Bld) 0.4 % Normal 0.0-2.0 [facility] Comment on above: Performed By: #### 2 107881, 9425174, 81346000 ####[address] [address] Eos Absolute 0.0 E9/L Normal 0.0-0.5 [facility] Comment on above: Performed By: #### 2 054546, 0772615, 26726688 ####[address] [address] Eosinophils/100 WBC (Bld) 0.0 % Normal 0.0-8.0 [facility] Comment on above: Performed By: #### 2 832129, 1756524, 05638871 ####[address] [address] Erythrocyte distribution width (RBC) [Ratio] 17.6 % High 10.9-14.2 [facility] Comment on above: Performed By: #### 2 091485, 9747765, 28076318 ####[place] [address] Hematocrit (Bld) [Volume fraction] 43.0 % Normal 37.7-49.0 [facility] Comment on above: Performed By: #### 2 660230, 3895516, 96870482 ####[address] [address] Hemoglobin (Bld) [Mass/Vol] 13.6 g/dL Normal 13.5-17.5 [facility] Comment on above: Performed By: #### 2 217585, 7762079, 49110936 ####[address] [address] Lymph Absolute 0.7 E9/L Low 1.0-4.0 [facility] Comment on above: Performed By: #### 2 591353, 7535171, 21377652 ####[address] [address] Lymphocytes/100 WBC (Bld) 10.8 % Low 14.0-50.0 [facility] Comment on above: Performed By: #### 2 703266, 3336768, 39251580 ####[address] [address] MCH (RBC) [Entitic mass] 27.7 pg Normal 27.0-34.0 [facility] Comment on above: Performed By: #### 2 066649, 2301107, 06130283 ####[address] [address] MCHC (RBC) [Mass/Vol] 31.6 g/dL Normal 31.4-36.0 [facility] Comment on above: Performed By: #### 2 343209, 2441599, 40039325 ####[address] [address] MCV (RBC) [Entitic vol] 87.5 fL Normal 80.0-100.0 [facility] Comment on above: Performed By: #### 2 525215, 0973715, 00746910 ####[address] [address] Stanly Absolute 0.6 E9/L Normal 0.2-1.0 [facility] Comment on above: Performed By: #### 2 475461, 0842269, 39042382 ####[address] [address] Monocytes/100 WBC (Bld) 9.5 % Normal 4.0-14.0 [facility] Comment on above: Performed By: #### 2 258252, 7894620, 53993948 ####[address] [address] Neutro Absolute 5.0 E9/L Normal 2.0-7.5 [facility] Comment on above: Performed By: #### 2 508366, 8779324, 98612077 ####[address] [address] Neutro Auto 79.3 % High 36.0-75.0 [facility] Comment on above: Performed By: #### 2 342915, 2670032, 85361882 ####[facility] [address] [place] [address] Platelet 207.0 E9/L Normal 150.0-500.0 [facility] Comment on above: Performed By: #### 2 824270, 1663359, 66516265 ####[facility] [address] [place] [address] Platelet mean volume (Bld) [Entitic vol] 7.2 fL Normal 6.4-10.8 [facility] Comment on above: Performed By: #### 2 819168, 2144843, 71225190 ####[address] [address] RBC 4.9 E12/L Normal 4.3-5.9 [facility] Comment on above: Performed By: #### 2 595190, 4839486, 05109324 ####[address] [address] WBC 6.3 E9/L Normal 4.0-11.0 [facility] Comment on above: Performed By: #### 2 145986, 4526418, 08071052 ####[address] [address] Capillary Glucose POCon 08-22 Glucose [Mass/Vol] 357 mg/dL High 55-99 [facility] Comment on above: Result Comment: Thelma BAE Performed By: #### 2 06122627 ####[address] [address] Glucose [Mass/Vol] 235 mg/dL High 55-99 [facility] Comment on above: Result Comment: Thelma BAE Performed By: #### 2 38884692 ####[address] [address] Glucose [Mass/Vol] 153 mg/dL High 55-99 [facility] Comment on above: Result Comment: Thelma BAE Performed By: #### 2 75059647 ####[address] [place] [address] Glucose [Mass/Vol] 137 mg/dL [address] Comment on above: Result Comment: Thelma BAE Performed By: #### 2 77450535 ####[facility] [address] [facility] [place] [address] Glucose [Mass/Vol] 157 mg/dL High [address] [place] [address] Comment on above: Result Comment: Thelma BAE Performed By: #### 2 79912155 ####[facility] [address] [place] [address] Glucose [Mass/Vol] 169 mg/dL [address] Comment on above: Result Comment: Thelma BAE Performed By: #### 2 [id number] ####[facility] [address] [facility] [place] [address] Glucose [Mass/Vol] 166 mg/dL [address] Comment on above: Result Comment: Thelma BAE Performed By: #### 2 [id number] ####[facility] [address] [place] [address] Glucose [Mass/Vol] 170 mg/dL [address] Comment on above: Result Comment: Thelma ABE Performed By: #### 2 [id number] ####[facility] [address]dtrhqni[address]171 [place] [address] Glucose [Mass/Vol] 165 mg/dL [address] Comment on above: Performed By: #### 2 [id number] ####[facility] Uhkwuihjmq770 [facility] [place] [address] Glucose [Mass/Vol] 159 mg/dL [address] Comment on above: Result Comment: Thelma BAE Performed By: #### 2 [id number] ####[facility] W[address]pmze133 [facility] [address] Glucose [Mass/Vol] 178 mg/dL [address] Comment on above: Result Comment: Thelma BAE Performed By: #### 2 [id number] ####[facility] Eio[address]th[address] [place] [address] Glucose [Mass/Vol] 143 mg/dL High 55-99 [facility] Comment on above: Result Comment: Thelma maxwell RN/ Performed By: #### 2 [id number] ####[facility] Rowhxaddnu906 [facility] [address] Glucose [Mass/Vol] 192 mg/dL High -[address] [place] [address] Comment on above: Result Comment: Thelma maxwell RN/ Performed By: #### 2 [id number] ####[facility] Ogssjjmeds698 [facility] [address] Glucose [Mass/Vol] 201 mg/dL High -[address] [place] [address] Comment on above: Result Comment: Thelma maxwell RN/ Performed By: #### 2 [id number] ####[facility] Tvoiwzmsqk[address] [place] [address] Glucose [Mass/Vol] 242 mg/dL High -[address] [place] [address] Comment on above: Result Comment: Thelma maxwell RN/ Performed By: #### 2 [id number] ####[facility] [address]qupabxgcy583 [place] [address] Coding Queryon 09-13-2023 Coding Query Normal [facility] Coding Query Normal [facility] Consultation Noteon 09-13-19 Consultation Note Normal [facility] Comment on above: Result Comment: Elec tronically Signed By: Rowdy LYMAN, Unruly Laurent\.br\Date and Time Signed: 09/13/23 19:06 EST Consultation Note Normal [facility] Comment on above: Result Comment: Elec tronically Signed By: Flakita Morgan MD\.br\Date and Time Signed: 09/13/23 10:18 EST [facility] [employer] w/ C ontraston 09-13-2023 Echo Transthor[employer] w/ Contrast Normal [facility] LicZ7xdn 09-13-2023 HbA1c (Bld) [Mass fraction] 11.8 % High <=5.9 [facility] Comment on above: Order Comment: Order placed by EKM rule. BCC_HGBA1CLABORDER_[facility] [place] Performed By: #### 7 [id number] ####[facility] [address]ib[address] [place] [address] Insurance Correspondence Off iceon 09-13-2023 Insurance Correspondence Office [id number] #1.00TIFF [facility] Interdisciplinary Note - Yimi e Manageron 09-13-2023 Interdisciplinary Note - Parole Director [facility] Comment on above: Result Comment: Elec tronically Signed By: Jodee Giang\.br\Date and Time Signed: 09/13/23 14:06 EST Interdisciplinary Note - PTo n 09-13-2023 Interdisciplinary Note - PT [facility] Monitor Recordon 09-13-2023 Monitor Record [id number]# 1.00TIFF [facility] Monitor Record [id number]# 1.00TIFF [facility] Monitor Record [id number]# 1.00TIFF [facility] Monitor Record [id number]# 1.00TIFF [facility] Monitor Record [id number]# 1.00TIFF [facility] Monitor Record [id number]# 1.00TIFF [facility] Nursing Note - Woundon 09-13 Nursing Note - Wound [id number]# 2.00TIFF [facility] Progress Note-Physicianon Progress Note-Physician [facility] Comment on above: Result Comment: Elec tronically Signed By: Ida LYMAN, Pippa Mabry\.br\Date and Time Signed: 09/13/23 15:56 EST Progress Note-Physician Normal [facility] Comment on above: Result Comment: Elec tronically Signed By: Jose LYMAN, Kayla\.br\Date and Time Signed: 09/13/23 11:23 EST Respiratory Panel by PCRon 0 09-13-2023 Adenovirus DNA ERIBERTO+non-probe Ql (Nph) Not detected Normal [facility] Comment on above: Result Comment: Test ing was performed using nucleic acid amplification including Influenza A, Influenza A H1, Influenza A H3, Influenza B, RSV A, RSV B, Adenovirus, Human Metapneumovirus, Parainfluenza 1,2,3, and 4, Rhinovirus, Bordetella parapertussis/bronchiseptica, Bordetella holmesii, and Bordetella pertussis. Performed By: #### 1 [id number] ####[address] [place] [address] B. parapertussis DNA ERIBERTO+probe Ql (Upper resp) Not detected Normal Not Detected [facility] Comment on above: Performed By: #### 1 [id number] ####[facility] [address] [facility] [address] B. pertussis DNA ERIBERTO+probe Ql (Upper resp) Not detected Normal Not Detected [facility] Comment on above: Performed By: #### 1 [id number] ####[facility] [address]plcwgsgxz[address] [place] [address] FLUAV H1 RNA ERIBERTO+non-probe Ql (Nph) Not detected Normal [facility] Comment on above: Performed By: #### 1 [id number] ####[facility] Grty[address]ucv509 [facility] [place] [address] FLUAV H3 RNA ERIBERTO+non-probe Ql (Nph) Not detected Normal [facility] Comment on above: Performed By: #### 1 [id number] ####[facility] [address] [place] [address] FLUAV RNA ERIBERTO+non-probe Ql (Nph) Not detected Normal [facility] Comment on above: Performed By: #### 1 [id number] ####[facility] Bfcudhlvjl141 [facility] [place] [address] FLUBV RNA ERIBERTO+non-probe Ql (Nph) Not detected Normal [facility] Comment on above: Performed By: #### 1 [id number] ####[facility] Txs[address] [facility] [address] Human Metapneumovirus Not detected Normal [facility] Comment on above: Result Comment: This test result should be correlated with clinical presentations and medical history by a healthcare provider to determine its clinical significance. Performed By: #### 1 [id number] ####[facility] [address]fkl[address]450 [facility] [address] Parainfluenza virus 1 RNA ERIBERTO+non-probe Ql (Nph) Not detected Normal [facility] Comment on above: Performed By: #### 1 [id number] ####[address] [facility] [address] Parainfluenza virus 2 RNA ERIBERTO+non-probe Ql (Nph) Not detected Normal [facility] Comment on above: Performed By: #### 1 [id number] ####[facility] [address]fyt[address]018 [facility] [place] [address] Parainfluenza virus 3 RNA ERIBERTO+non-probe Ql (Nph) Not detected Normal [facility] Comment on above: Performed By: #### 1 [id number] ####[facility] Yvxsqin[address]618 [facility] [address] Parainfluenza virus 4 RNA ERIBERTO+non-probe Ql (Nph) Not detected Normal [facility] Comment on above: Performed By: #### 1 [id number] ####[facility] [address]974 [facility] [place] [address] Resp Panel Intrl QC [facility] Comment on above: Performed By: #### 1 [id number] ####[facility] Ow[address]613 [facility] [address] Rhinovirus+Enterovir us RNA ERIBERTO+non-probe Ql (Nph) Not detected Normal [facility] Comment on above: Performed By: #### 1 [id number] ####[facility] [address]ct[address] [place] [address] RSV RNA ERIBERTO+non-probe Ql (Nph) Not detected Normal [facility] Comment on above: Performed By: #### 1 [id number] ####[address] [address] UA With Cult Reflexon 2023 Bilirubin Ql (U) Negative Normal Negative [facility] Comment on above: Performed By: #### 1 [id number] ####[address] [address] Clarity (U) CLEAR Normal Clear [facility] Comment on above: Performed By: #### 1 [id number] ####[address] [address] Color (U) YELLOW Normal Yellow [facility] Comment on above: Performed By: #### 1 [id number] ####[address] [address] Epithelial cells.squamous LM.HPF (Urine sed) [#/Area] 0-2 Normal 0-2 [facility] Comment on above: Performed By: #### 1 [id number] ####[address] [address] Glucose Test strip (U) [Mass/Vol] 3+ Abnormal Negative [facility] Comment on above: Performed By: #### 1 [id number] ####[address] [address] Hemoglobin Ql (U) 1+ Abnormal Negative [facility] Comment on above: Performed By: #### 1 8660705 ####[address] [address] Ketones (U) [Mass/Vol] Negative Normal Negative [facility] Comment on above: Performed By: #### 1 [id number] ####[address] [address] Istachatta.plasma/Lithi um.RBC (Bld) [Mass ratio] 0-3 Normal 0-3 [facility] Comment on above: Performed By: #### 1 [id number] ####[facility] [address] [place] [address] Nitrite Ql (U) Negative Normal Negative [facility] Comment on above: Performed By: #### 1 [id number] ####[address] [address] pH (U) 5.5 [pH] Invalid Interpretation Code 5.0-9.0 [facility] Comment on above: Performed By: #### 1 [id number] ####[address] [address] Protein (U) [Mass/Vol] TRACE Abnormal Negative [facility] Comment on above: Performed By: #### 1 [id number] ####[address] [address] Specific gravity (U) [Rel density] 1.015 Invalid Interpretation Code 1.005-1.030 [facility] Comment on above: Performed By: #### 1 [id number] ####[address] [address] Type of Urine collection method Clean Catch Normal [facility] Comment on above: Performed By: #### 1 5158938 ####[address] [address] Urobilinogen Qn (U) 0.2 {Itz'U}/dL Normal 0.0-1.0 [facility] Comment on above: Performed By: #### 1 [id number] ####[address] [address] WBC Auto Ql (U) Negative Normal Negative [facility] Comment on above: Performed By: #### 1 [id number] ####[address] [address] WBC LM.HPF (Urine sed) [#/Area] 0-5 Normal 0-5 [facility] Comment on above: Performed By: #### 1 [id number] ####[facility] [address] [place] [address] US LE Venous Duplex Bilatera aria 09-13-2023 US LE Venous Duplex Bilateral Normal [facility] US Renalon 09-13-2023 US Renal Normal [facility] XR Chest Single Viewon 09-13 XR Chest Single View Normal [facility] eGFRon 09-13-2023 eGFR 36 mL/min/1.73 m2 Low >=59 [facility] Comment on above: Order Comment: Order added by Discern Expert. Performed By: #### 2 [id number], [id number] ####[facility] [address] [place] [address] eGFR 36 mL/min/1.73 m2 Low >=59 [facility] Comment on above: Order Comment: Order added by Discern Expert. Performed By: #### 1 [id number], [id number] ####[facility] [address] [place] [address] eGFR 36 mL/min/1.73 m2 Low >=59 [facility] Comment on above: Order Comment: Order added by Discern Expert. Performed By: #### 1 2673434, [id number] ####[facility] [address] [place] [address] eGFR 34 mL/min/1.73 m2 Low >=59 [facility] Comment on above: Order Comment: Order added by Discern Expert. Performed By: #### 2 479039, [id number] ####[facility] [address] [place] [address] eGFR 32 mL/min/1.73 m2 Low >=59 [facility] Comment on above: Order Comment: Order added by Discern Expert. Performed By: #### 2 380048, 7024866, 24749931 ####[address] [place] [address] eGFR 31 mL/min/1.73 m2 Low >=59 [facility] Comment on above: Order Comment: Order added by Discern Expert. Performed By: #### 2 361724, [id number] ####[facility] [address] [place] [address] BMPon 09-12-2023 Anion gap [Moles/Vol] 12 mmol/L Normal 6-16 [facility] Comment on above: Performed By: #### 1 [id number], [id number] ####[facility] [address] [place] [address] BUN/Creat Ratio 23 No Units High 10-20 [facility] Comment on above: Performed By: #### 1 3867427, 5835081 ####[facility] [address] [place] [address] Calcium [Mass/Vol] 8.4 mg/dL Low 8.9-11.1 [facility] Comment on above: Performed By: #### 1 2482646, 6830917 ####[facility] [address] [place] [address] Chloride [Moles/Vol] 102 mmol/L Normal 101-111 [facility] Comment on above: Performed By: #### 1 1493472, 4196587 ####[facility] [address] [place] [address] CO2 [Moles/Vol] 30 mmol/L Normal 21-31 [facility] Comment on above: Performed By: #### 1 3227974, 4268437 ####[facility] [address] [place] [address] Creatinine [Mass/Vol] 2.5 mg/dL High 0.5-1.3 [facility] Comment on above: Performed By: #### 1 8958722, 7253166 ####[facility] [address] [place] [address] Glucose [Mass/Vol] 463 mg/dL Abnormal 55-199 [facility] Comment on above: Result Comment: Crit ical Result Verified by Previous ResultCritical Result [id number] Called to and read back by: MARLEN SHEETS at: 09/12/2023 22:01:54 by:PRADEEP KERR Performed By: #### 1 [id number], [id number] ####[facility] [address]ls[address] [place] [address] Potassium [Moles/Vol] 5.6 mmol/L High 3.5-5.3 [facility] Comment on above: Performed By: #### 1 9333569, 0704808 ####[facility] [address] [place] [address] Sodium [Moles/Vol] 138 mmol/L Normal 135-145 [facility] Comment on above: Performed By: #### 1 4684108, 4323037 ####[facility] [address] [place] [address] Urea nitrogen [Mass/Vol] 57 mg/dL High 5-21 [facility] Comment on above: Performed By: #### 1 0527796, 0015743 ####[facility] [address] [place] [address] Anion gap [Moles/Vol] 12 mmol/L Normal 6-16 [facility] Comment on above: Performed By: #### 2 530913, 08899962, 3839096 ####[facility] [address] [place] [address] BUN/Creat Ratio 22 No Units High 10-20 [facility] Comment on above: Performed By: #### 2 234019, [id number], 0563417 ####[facility] [address] [place] [address] Calcium [Mass/Vol] 8.4 mg/dL Low 8.9-11.1 [facility] Comment on above: Performed By: #### 2 081341, 99675863, 1645817 ####[facility] [address]gsrso[address] [place] [address] Chloride [Moles/Vol] 100 mmol/L Low 101-111 [facility] Comment on above: Performed By: #### 2 924961, 10519632, 6849889 ####[facility] [address] [place] [address] CO2 [Moles/Vol] 28 mmol/L Normal 21-31 [facility] Comment on above: Performed By: #### 2 802979, 22623865, 9667280 ####[facility] [address] [place] [address] Creatinine [Mass/Vol] 2.6 mg/dL High 0.5-1.3 [facility] Comment on above: Performed By: #### 2 135612, 17973737, 3399263 ####[facility] [address] [place] [address] Glucose [Mass/Vol] 575 mg/dL Abnormal 55-199 [facility] Comment on above: Result Comment: Crit ical Result S_[id number] Called to and read back by: MARLEN SHEETS at: 09/12/2023 18:59:19 by:PRADEEP Stevensal Result Verified by Previous Result Performed By: #### 2 388933, 02631685, 3417051 ####[address] [address] Potassium [Moles/Vol] 6.5 mmol/L Abnormal 3.5-5.3 [facility] Comment on above: Result Comment: Crit ical Result S_K:6.5 Called to and read back by: MARLEN SHEETS at: 09/12/2023 18:59:19 by:PRADEEP AIKENritical Result Verified by Previous Result Performed By: #### 2 266280, [id number], 1006569 ####[facility] [address] [place] [address] Sodium [Moles/Vol] 133 mmol/L Low 135-145 [facility] Comment on above: Performed By: #### 2 113244, 07473767, 3746441 ####[facility] [address] [place] [address] Urea nitrogen [Mass/Vol] 57 mg/dL High 5-21 [facility] Comment on above: Performed By: #### 2 330307, 93109988, 6023401 ####[facility] [address] [place] [address] BNPon 09-12-2023 Natriuretic peptide B (Bld) [Mass/Vol] 245 pg/mL High 5-80 [facility] Comment on above: Performed By: #### 1 1038154, [id number], 5483643, [id number], 95664840, 9538820, 1206761, 16928947, 1103973, 1933126 ####[facility] [address] [place] [address] BOHBon 09-12-2023 Beta HB Qnt 0.17 mmol/L Normal 0.02-0.27 [facility] Comment on above: Performed By: #### 1 2769400, 763643408, 0705650, [id number], 07863547, 8002797, 0979660, 72970281, 4108326, 0070593 ####[facility] [address] [place] [address] Blood Gas Art, with Lytes, G hugh, [place] 09-12-2023 a/A Ratio Art 26.80 % Normal >=0.80 [facility] Comment on above: Performed By: #### 4 [id number] ####[facility] [address] [place] [address] AaDO2 Art 281.8 mmHg High 5.0-15.0 [facility] Comment on above: Performed By: #### 4 [id number] ####[address] [address] Allens Test Positive Normal [facility] Comment on above: Performed By: #### 4 45239065 ####[facility] [address] [place] [address] Base Excess Arterial 2.9 mmol/L Normal >=2.8 [facility] Comment on above: Performed By: #### 4 30388822 ####[facility] [address]leu[address] [place] [address] BiPAP 20/8 Invalid Interpretation Code [facility] Comment on above: Performed By: #### 4 [id number] ####[facility] [address]sem[address] [place] [address] cCa2+ Art 4.64 mg/dL Normal 4.40-5.30 [facility] Comment on above: Performed By: #### 4 60464854 ####[facility] [address] [place] [address] cGlu Art 531 mg/dL Abnormal 55-99 [facility] Comment on above: Result Comment: Resu lts Called To DR GARCIA By DIANA MCKEON And Read Back For Confirmation On 09/12/2023 18:44:48 EST. Performed By: #### 4 [id number] ####[address] [address] cK+ Art 5.9 mmol/L High 3.5-5.3 [facility] Comment on above: Performed By: #### 4 40855670 ####[address] [address] cLac Art .6 mmol/L Normal .5-2.2 [facility] Comment on above: Performed By: #### 4 77463843 ####[address] [address] supervisor scrap preparation+ Art 138.0 mmol/L Normal 135.0-145.0 [facility] Comment on above: Performed By: #### 4 47998400 ####[address] [place] [address] Drawn by [employer] Invalid Interpretation Code [facility] Comment on above: Performed By: #### 4 21600913 ####[address] [place] [address] FCOHb Art 1.4 % Low 1.5-4.9 [facility] Comment on above: Result Comment: Refe rence rangeNonsmoker <1.5%Smoker <5.0%Heavy Smoker <9.0% Performed By: #### 4 78700615 ####[address] [place] [address] FIO2 BG 65.0 Invalid Interpretation Code [facility] Comment on above: Performed By: #### 4 [id number] ####[address] [address] FMetHb Art 0.6 % Normal 0.0-1.9 [facility] Comment on above: Performed By: #### 4 34702467 ####[address] [address] FO2Hb Art 95.9 % Normal 93.0-100.0 [facility] Comment on above: Performed By: #### 4 [id number] ####[address] [address] HCO3 (Bld) [Moles/Vol] 27.0 mmol/L High 22.0-26.0 [facility] Comment on above: Performed By: #### 4 43218959 ####[address] [address] Hemoglobin (Bld) [Mass/Vol] 14.9 g/dL Normal 12.0-17.0 [facility] Comment on above: Performed By: #### 4 [id number] ####[address] [address] Oxygen saturation in Blood 97.9 % Normal 95.0-100.0 [facility] Comment on above: Performed By: #### 4 43198010 ####[address] [address] P CO2 Arterial 65.5 mmHg High 35.0-45.0 [facility] Comment on above: Performed By: #### 4 49994231 ####[address] [address] P O2 Arterial 103.0 mmHg High 80.0-100.0 [facility] Comment on above: Performed By: #### 4 41890938 ####[address] [address] pH Arterial 7.292 Low 7.350-7.450 [facility] Comment on above: Performed By: #### 4 74253352 ####[address] [place] [address] Sample Site L Radial Normal [facility] Comment on above: Performed By: #### 4 [id number] ####[address] [address] Sample Type Arterial Draw Normal [facility] Comment on above: Performed By: #### 4 04882419 ####[address] [place] [address] a/A Ratio Art 29.90 % Normal >=0.80 [facility] Comment on above: Performed By: #### 4 13572612 ####[address] [address] AaDO2 Art 192.2 mmHg High 5.0-15.0 [facility] Comment on above: Performed By: #### 4 77417414 ####[address] [place] [address] Allens Test Positive Normal [facility] Comment on above: Performed By: #### 4 64434644 ####[address] [place] [address] Base Excess Arterial -0.1 mmol/L Low >=2.8 [facility] Comment on above: Performed By: #### 4 [id number] ####[address] [place] [address] BiPAP / Invalid Interpretation Code [facility] Comment on above: Performed By: #### 4 14634659 ####[address] [place] [address] cCa2+ Art 4.76 mg/dL Normal 4.40-5.30 [facility] Comment on above: Performed By: #### 4 [id number] ####[address] [address] cCl- Art 100.0 mmol/L Low 101.0-111.0 [facility] Comment on above: Performed By: #### 4 50979706 ####[address] [place] [address] cGlu Art 555 mg/dL Abnormal 55-99 [facility] Comment on above: Result Comment: Resu lts Called To [facility] By WILLEM WILKES _ And Read Back For Confirmation On _.09/12/2023 16:45:25 EST Performed By: #### 4 [id number] ####[address] [address] cK+ Art 6.3 mmol/L Abnormal 3.5-5.3 [facility] Comment on above: Result Comment: Resu lts Called To [facility] By WILLEM WILKES _ And Read Back For Confirmation On _.09/12/2023 16:45:25 EST Performed By: #### 4 [id number] ####[address] [address] cLac Art .7 mmol/L Normal .5-2.2 [facility] Comment on above: Performed By: #### 4 [id number] ####[address] [address] supervisor scrap preparation+ Art 135.0 mmol/L Normal 135.0-145.0 [facility] Comment on above: Performed By: #### 4 [id number] ####[address] [address] Drawn by WILLEM WILKES Invalid Interpretation Code [facility] Comment on above: Performed By: #### 4 [id number] ####[address] [address] FCOHb Art 2.1 % Normal 1.5-4.9 [facility] Comment on above: Result Comment: Refe rence rangeNonsmoker <1.5%Smoker <5.0%Heavy Smoker <9.0% Performed By: #### 4 [id number] ####[address] [place] [address] FIO2 BG 50 Invalid Interpretation Code [facility] Comment on above: Performed By: #### 4 [id number] ####[address] [address] FMetHb Art 0.1 % Normal 0.0-1.9 [facility] Comment on above: Performed By: #### 4 [id number] ####[address] [address] FO2Hb Art 93.3 % Normal 93.0-100.0 [facility] Comment on above: Performed By: #### 4 [id number] ####[address] [address] HCO3 (Bld) [Moles/Vol] 24.3 mmol/L Normal 22.0-26.0 [facility] Comment on above: Performed By: #### 4 [id number] ####[address] [address] Hemoglobin (Bld) [Mass/Vol] 14.8 g/dL Normal 12.0-17.0 [facility] Comment on above: Performed By: #### 4 [id number] ####[address] [address] Oxygen saturation in Blood 95.4 % Normal 95.0-100.0 [facility] Comment on above: Performed By: #### 4 [id number] ####[address] [address] P CO2 Arterial 69.6 mmHg High 35.0-45.0 [facility] Comment on above: Performed By: #### 4 [id number] ####[address] [address] P O2 Arterial 81.9 mmHg Normal 80.0-100.0 [facility] Comment on above: Performed By: #### 4 69502634 ####[address] [address] pH Arterial 7.235 Abnormal 7.350-7.450 [facility] Comment on above: Result Comment: Resu lts Called To IRVING ALEX By WILLEM WILKES _ And Read Back For Confirmation On _.09/12/2023 16:45:25 EST Performed By: #### 4 [id number] ####[facility] [address] [place] [address] Sample Site L Radial Normal [facility] Comment on above: Performed By: #### 4 [id number] ####[facility] [address] [place] [address] Sample Type Arterial Draw Normal [facility] Comment on above: Performed By: #### 4 [id number] ####[facility] [address] [place] [address] a/A Ratio Art 17.40 % Normal >=0.80 [facility] Comment on above: Performed By: #### 4 [id number] ####[facility] [address] [place] [address] AaDO2 Art 406.5 mmHg High 5.0-15.0 [facility] Comment on above: Performed By: #### 4 [id number] ####[facility] [address] [place] [address] Allens Test Positive Normal [facility] Comment on above: Performed By: #### 4 [id number] ####[facility] [address] [place] [address] Base Excess Arterial -0.1 mmol/L Low >=2.8 [facility] Comment on above: Performed By: #### 4 [id number] ####[facility] [address] [place] [address] cCa2+ Art 4.75 mg/dL Normal 4.40-5.30 [facility] Comment on above: Performed By: #### 4 [id number] ####[facility] [address] [place] [address] cCl- Art 98.0 mmol/L Low 101.0-111.0 [facility] Comment on above: Performed By: #### 4 [id number] ####[facility] [address] [place] [address] cGlu Art 579 mg/dL Abnormal 55-99 [facility] Comment on above: Result Comment: Resu lts Called To nicole myers By korina hebert And Read Back For Confirmation On 09/12/2023 14:09:29 EST. Performed By: #### 4 [id number] ####[facility] [address] [facility] [place] [address] cK+ Art 6.0 mmol/L High 3.5-5.3 [facility] Comment on above: Performed By: #### 4 [id number] ####[facility] [address] [facility] [address] cLac Art .9 mmol/L Normal .5-2.2 [facility] Comment on above: Performed By: #### 4 [id number] ####[facility] [address] [facility] [place] [address] supervisor scrap preparation+ Art 134.0 mmol/L Low 135.0-145.0 [facility] Comment on above: Performed By: #### 4 [id number] ####[facility] [address] [facility] [place] [address] Device Non Rebreather Mask Normal [facility] Comment on above: Performed By: #### 4 [id number] ####[facility] [address] [place] [address] Drawn by korina clement Invalid Interpretation Code [facility] Comment on above: Performed By: #### 4 [id number] ####[facility] [address] [facility] [place] [address] FCOHb Art 2.2 % Normal 1.5-4.9 [facility] Comment on above: Result Comment: Refe rence rangeNonsmoker <1.5%Smoker <5.0%Heavy Smoker <9.0% Performed By: #### 4 [id number] ####[address] [place] [address] FIO2 BG 80 Invalid Interpretation Code [facility] Comment on above: Performed By: #### 4 [id number] ####[address] [place] [address] FO2Hb Art 94.1 % Normal 93.0-100.0 [facility] Comment on above: Performed By: #### 4 [id number] ####[address] [address] HCO3 (Bld) [Moles/Vol] 24.3 mmol/L Normal 22.0-26.0 [facility] Comment on above: Performed By: #### 4 [id number] ####[address] [address] Hemoglobin (Bld) [Mass/Vol] 14.7 g/dL Normal 12.0-17.0 [facility] Comment on above: Performed By: #### 4 [id number] ####[address] [address] Oxygen saturation in Blood 96.2 % Normal 95.0-100.0 [facility] Comment on above: Performed By: #### 4 [id number] ####[address] [address] P CO2 Arterial 65.1 mmHg High 35.0-45.0 [facility] Comment on above: Performed By: #### 4 [id number] ####[address] [address] P O2 Arterial 85.6 mmHg Normal 80.0-100.0 [facility] Comment on above: Performed By: #### 4 [id number] ####[address] [place] [address] pH Arterial 7.254 Low 7.350-7.450 [facility] Comment on above: Performed By: #### 4 [id number] ####[address] [address] Sample Site L Radial Normal [facility] Comment on above: Performed By: #### 4 [id number] ####[facility] [address] [place] [address] Sample Type Arterial Draw Normal [facility] Comment on above: Performed By: #### 4 [id number] ####[address] [place] [address] CBC w/ Auto Diffon 4 Basophil Absolute 0.1 E9/L Normal 0.0-0.2 [facility] Comment on above: Performed By: #### 1 5866280, 792408416, 4949614, 5721284112, 94352377, 4975324, 9711026, 00061645, 8520351, 1962513 ####[place] [address] Basophils/100 WBC (Bld) 1.0 % Normal 0.0-2.0 [facility] Comment on above: Performed By: #### 1 2940946, 081217191, 0351724, 5342907022, 54819052, 9705337, 7397671, 93780758, 2320526, 2100211 ####[facility] [address] [place], [place] [address] Eos Absolute 0.2 E9/L Normal 0.0-0.5 [facility] Comment on above: Performed By: #### 1 0994358, 987027024, 6127328, 9424592615, 99526167, 0841598, 9165630, 88454045, 4855254, 6083998 ####[address] [place] [address] Eosinophils/100 WBC (Bld) 2.9 % Normal 0.0-8.0 [facility] Comment on above: Performed By: #### 1 5520912, 655864997, 3597784, 6787034516, 25548015, 1623767, 2873123, 28469368, 2662782, 0411915 ####[address] [place] [address] Erythrocyte distribution width (RBC) [Ratio] 18.2 % High 10.9-14.2 [facility] Comment on above: Performed By: #### 1 4417538, 909045335, 0982892, 3026415826, 43482561, 2558233, 1226847, 07841498, 2093630, 8124398 ####[address] [place] [address] Hematocrit (Bld) [Volume fraction] 46.0 % Normal 37.7-49.0 [facility] Comment on above: Performed By: #### 1 9171913, 536360146, 6298302, 8431140768, 61448965, 3217816, 7402614, 91167998, 5679721, 9551571 ####[address] [address] Hemoglobin (Bld) [Mass/Vol] 14.2 g/dL Normal 13.5-17.5 [facility] Comment on above: Performed By: #### 1 0192152, 016607292, 3753937, 7970773355, 75037671, 0572088, 5699198, 76009772, 6187251, 8025698 ####[address] [address] Lymph Absolute 1.0 E9/L Normal 1.0-4.0 [facility] Comment on above: Performed By: #### 1 3305302, 099956995, 3960258, 8354173179, 80736201, 1908510, 7045397, 03519738, 3572422, 4421364 ####[address] [address] Lymphocytes/100 WBC (Bld) 14.0 % Normal 14.0-50.0 [facility] Comment on above: Performed By: #### 1 8964324, 333020896, 7145610, 2378532125, 23398989, 8701928, 5532459, 88464589, 2720898, 6751214 ####[address] [place] [address] MCH (RBC) [Entitic mass] 27.7 pg Normal 27.0-34.0 [facility] Comment on above: Performed By: #### 1 7693166, 437482864, 6499748, 4647692705, 74896042, 8639690, 0031860, 78149986, 9148819, 5273548 ####[address] [address] MCHC (RBC) [Mass/Vol] 30.8 g/dL Low 31.4-36.0 [facility] Comment on above: Performed By: #### 1 5124838, 766814810, 5719799, 1097765202, 35546392, 6033672, 4271400, 54028191, 5533606, 7636254 ####[address] [address] MCV (RBC) [Entitic vol] 90.0 fL Normal 80.0-100.0 [facility] Comment on above: Performed By: #### 1 4128449, 374376594, 4559435, 1995785484, 15611736, 0816696, 0644530, 51555790, 6642194, 7336524 ####[address] [place] [address] Stanly Absolute 0.8 E9/L Normal 0.2-1.0 [facility] Comment on above: Performed By: #### 1 6094353, 430224212, 8042296, 3035083483, 75148457, 2728874, 0447480, 70189282, 8273677, 3000278 ####[address] [place] [address] Monocytes/100 WBC (Bld) 11.3 % Normal 4.0-14.0 [facility] Comment on above: Performed By: #### 1 9111007, 574059988, 4721658, 0849720859, 26262077, 8283193, 5550855, 03240085, 3066848, 6221013 ####[address] [place] [address] Neutro Absolute 4.8 E9/L Normal 2.0-7.5 [facility] Comment on above: Performed By: #### 1 3906658, 847305897, 0894613, 4459024864, 07787942, 7132150, 8618788, 87691979, 8860785, 6217381 ####[address] [address] Neutro Auto 70.8 % Normal 36.0-75.0 [facility] Comment on above: Performed By: #### 1 9932302, 516663317, 6152835, 6639397395, 63814480, 3752839, 0294462, 66247142, 9041493, 1214193 ####[address] [address] Platelet 206.0 E9/L Normal 150.0-500.0 [facility] Comment on above: Performed By: #### 1 0750657, 252299032, 9245008, 5855017469, 90109227, 2688677, 8036043, 03146226, 5075496, 3363068 ####[address] [address] Platelet mean volume (Bld) [Entitic vol] 7.3 fL Normal 6.4-10.8 [facility] Comment on above: Performed By: #### 1 8811191, 163339722, 0977865, 6374242558, 03053466, 7562079, 7516437, 75132073, 7439117, 5678664 ####[address] [place] [address] RBC 5.1 E12/L Normal 4.3-5.9 [facility] Comment on above: Performed By: #### 1 5250414, 115546951, 6065108, 4407852917, 83851315, 4796948, 9173776, 72738649, 6098746, 6676100 ####[facility] [address] [place] [address] WBC 6.8 E9/L Normal 4.0-11.0 [facility] Comment on above: Performed By: #### 1 9655081, 100752743, 0916576, 2590715183, 61695130, 5831411, 8277144, 12047501, 2431400, 0171678 ####[address] [place] [address] CMPon 09-12-2023 Albumin [Mass/Vol] 3.3 g/dL Normal 3.3-5.0 [facility] Comment on above: Performed By: #### 1 1643729, 442869123, 6388755, 9586908796, 13689848, 4671830, 7665716, 86044161, 0740916, 2060204 ####[address] [address] Albumin/Globulin [Mass ratio] 1.1 {ratio} Normal 1.1-2.2 [facility] Comment on above: Performed By: #### 1 1741735, 367014363, 6983582, 9639658371, 55416318, 5375963, 8867538, 23264315, 6337895, 8335944 ####[address] [place] [address] Alk Phos 94 Int._Unit/L Normal 21-98 [facility] Comment on above: Performed By: #### 1 1813126, 291037946, 0939209, 8428915138, 56362427, 4577860, 4864240, 61117739, 9578141, 3700606 ####[address] [place] [address] ALT 14 Int._Unit/L Normal 6-46 [facility] Comment on above: Performed By: #### 1 3549396, 989296120, 7274860, 8830029566, 97847207, 7392977, 9947393, 84913816, 4986789, 8258016 ####[facility] [address] [place] [address] Anion gap [Moles/Vol] 10 mmol/L Normal 6-16 [facility] Comment on above: Performed By: #### 1 0481869, 785935819, 3386297, 9186647152, 72964399, 8634853, 1229206, 35422756, 8561657, 9719577 ####[facility] [address] [place] [address] AST 12 Int._Unit/L Normal 5-43 [facility] Comment on above: Performed By: #### 1 9616296, 416161519, 5454440, 9944293628, 64077800, 0439689, 4870657, 16246993, 0742175, 6675824 ####[address] [place] [address] Bili Total 0.6 mg/dL Normal 0.0-1.1 [facility] Comment on above: Performed By: #### 1 5095293, 934091396, 7352649, 2622574965, 60433809, 0820891, 4242750, 18520856, 8485847, 8946784 ####[address] [place] [address] BUN/Creat Ratio 21 No Units High 10-20 [facility] Comment on above: Performed By: #### 1 7309364, 996347668, 9749878, 7941953794, 30122679, 2554485, 2475330, 33392940, 1548902, 5748883 ####[address] [place] [address] Calcium [Mass/Vol] 8.3 mg/dL Low 8.9-11.1 [facility] Comment on above: Performed By: #### 1 2623398, 088620422, 4415720, 8587694366, 48706907, 2374275, 2980387, 50445332, 4426624, 8843419 ####[facility] [address] [place] [address] Chloride [Moles/Vol] 97 mmol/L Low 101-111 [facility] Comment on above: Performed By: #### 1 9814237, 238521828, 2236715, 8722297399, 87135581, 8685005, 1488742, 93043033, 6921936, 9167979 ####[facility] [address] [place] [address] CO2 [Moles/Vol] 29 mmol/L Normal 21-31 [facility] Comment on above: Performed By: #### 1 2302495, 236455339, 7956959, 5046786932, 15400825, 4658156, 3289075, 61134014, 7261038, 5847939 ####[facility] [address] [place] [address] Creatinine [Mass/Vol] 2.8 mg/dL High 0.5-1.3 [facility] Comment on above: Performed By: #### 1 1830764, 969492114, 0957035, 6227701093, 19195060, 7214925, 9440024, 97850658, 6911364, 1488866 ####[facility] [address] [place] [address] Globulin (S) [Mass/Vol] 3.1 g/dL Normal 1.4-4.0 [facility] Comment on above: Performed By: #### 1 1782259, 077767409, 3867850, 2985528207, 35647602, 9133538, 0782642, 46797914, 0668661, 9751991 ####[facility] [address] [place] [address] Glucose [Mass/Vol] 560 mg/dL Abnormal 55-199 [facility] Comment on above: Result Comment: Crit ical Result Verified by Repeat AnalysisCritical Result S_GLU:560 Called to and read back by: ULICES BACA at: 09/12/2023 14:56:08 by:[email or web address] Performed By: #### 1 5135860, 634461202, 7394199, 8301267431, 12604474, 8961883, 5413030, 70880153, 8189667, 5265658 ####[facility] [address] [place] [address] Potassium [Moles/Vol] 6.3 mmol/L Abnormal 3.5-5.3 [facility] Comment on above: Result Comment: Crit ical Result Verified by Repeat AnalysisCritical Result S_K:6.3 Called to and read back by: ULICES BACA at: 09/12/2023 14:56:08 by:[id number] Performed By: #### 1 9563373, 714265206, 9604972, 7235447138, 06217098, 0670877, 6151970, 34898210, 3448213, 5074202 ####[facility] [address] [place] [address] Protein [Mass/Vol] 6.4 g/dL Normal 6.0-7.8 [facility] Comment on above: Performed By: #### 1 5266924, 624178255, 1234345, 8754158578, 72665514, 1048406, 0979929, 65831868, 9163340, 1207113 ####[facility] [address] [place] [address] Sodium [Moles/Vol] 130 mmol/L Low 135-145 [facility] Comment on above: Performed By: #### 1 6662645, 509439573, 3839039, 2905265219, 21066783, 1244169, 2405435, 28219319, 8976236, 9395530 ####[facility] [address] [place] [address] Urea nitrogen [Mass/Vol] 59 mg/dL High 5-21 [facility] Comment on above: Performed By: #### 1 0841353, 263605116, 1448933, 1731463234, 12898711, 5542739, 9886927, 82877241, 2190950, 7015197 ####[facility] [address] [place] [address] Capillary Glucose POCon 08-22 Glucose [Mass/Vol] 298 mg/dL High 55-99 [facility] Comment on above: Performed By: #### 2 10179949 ####[facility] [address] [place] [address] Glucose [Mass/Vol] 336 mg/dL High 55-99 [facility] Comment on above: Result Comment: Thelma BAE Performed By: #### 2 58948572 ####[facility] [address] [place] [address] Glucose [Mass/Vol] 431 mg/dL High 55-99 [facility] Comment on above: Result Comment: Thelma BAE Performed By: #### 2 54927653 ####[facility] [address] [place] [address] Glucose [Mass/Vol] 468 mg/dL Abnormal 55-99 [facility] Comment on above: Performed By: #### 2 46612506 ####[facility] [address] [place] [address] Glucose Cap >500 Abnormal 55-99 [facility] Comment on above: Result Comment: Repe at Test Performed By: #### 2 04992364 ####[facility] [address] [place] [address] Glucose Cap >500 Abnormal 55-99 [facility] Comment on above: Result Comment: Pricila elbert Meter Performed By: #### 2 39831142 ####[address] [place] [address] Consent for Treatmenton 08-22 Consent for Treatment [id number]# 1.00TIFF Normal [facility] Consultation Noteon 09-12-19 24 Consultation Note Normal [facility] Comment on above: Result Comment: Elec tronically Signed By: Shaquille Alex Jr., PA-C\.br\Date and Time Signed: 09/12/23 17:54 EST ED Clinical Summaryon 2023 ED Clinical Summary Normal [facility] ED Note-Physicianon 09-12-19 ED Note-Physician Normal [facility] Comment on above: Result Comment: Elec tronically Signed By: Nicole Myers DO\.br\Date and Time Signed: 09/12/23 16:07 EST ED Patient Education Noteon 09-12-2023 ED Patient Education Note Normal [facility] ED Patient Summaryon 024 ED Patient Summary Normal [facility] Glucoseon 09-12-2023 Glucose [Mass/Vol] 533 mg/dL Abnormal 55-199 [facility] Comment on above: Result Comment: Crit ical Result Verified by Previous ResultCritical Result S_GLU:533 Called to and read back by: YI FERRER at: 09/12/2023 19:24:47 by:PRADEEP KERR Performed By: #### 2 638967 ####[facility] [address] [place] [address] Influenza A&B Agon Influenzae A Ag Negative Normal Negative [facility] Comment on above: Performed By: #### 2 [id number], 30671895 ####[facility] [address] [place] [address] Influenzae B Ag Negative Normal Negative [facility] Comment on above: Result Comment: Test sensitivity and specificity vary for age group, specimen type, antigen types, and prevalence of disease. Test results must be evaluated in conjunction with other clinical data available to the physician. Individuals who received nasally administered Influenza A vaccine may have positive test results up to 3 days after vaccination. Performed By: #### 2 [id number], 45497288 ####[facility] [address] [place] [address] Lactic Acidon 09-12-2023 Lactic Acid Lvl 1.2 mmol/L Normal 0.5-2.2 [facility] Comment on above: Performed By: #### 2 720194 ####[facility] [address] [place] [address] Lactic Acid Lvl 1.2 mmol/L Normal 0.5-2.2 [facility] Comment on above: Performed By: #### 1 4295651, 605240235, 8061566, 8479159338, 77173680, 4264482, 6910409, 89577646, 0023690, 2011309 ####[facility] [address] [place] [address] Lipase Levelon 09-12-2023 Lipase Lvl 14 unit/L Normal 13-58 [facility] Comment on above: Performed By: #### 1 3935487, 597422871, 5767872, 6376943641, 17285901, 8253157, 8773260, 24069576, 3592786, 7220450 ####[facility] [address] [place] [address] Monitor Recordon 09-12-2023 Monitor Record [id number]# 1.00TIFF Normal [facility] Monitor Record [id number]# 1.00TIFF Normal [facility] Monitor Record [id number]# 1.00TIFF Normal [facility] Monitor Record [id number]# 1.00TIFF Normal [facility] Monitor Record [id number]# 1.00TIFF Normal [facility] PT & PTTon 09-12-2023 aPTT Coag (PPP) [Time] 32.5 second(s) Normal 25.1-36.5 [facility] Comment on above: Result Comment: Para [...] the same coagulation reagent and instrumentation as [facility]. Currently there are no coagulation studies available worldwide for children to 14 days, and no normal ranges. Heparin therapeutic range (represented by Anti-Factor Xa activity of 0.2 - 0.4 U/mL) corresponds to PTT of 56.6 - 109.0 sec. Performed By: #### 1 4149694, 666852442, 9189599, 8286044916, 37840902, 7445029, 1093976, 31717916, 2580375, 7252427 ####[facility] [address] [place] [address] INR Coag (PPP) [Relative time] 1.1 {INR} Invalid Interpretation Code [facility] Comment on above: Result Comment: INR results are specifically intended to assess patients stabilized on long-term Anticoagulation therapy suggested INR?s ?Less Intensive Anticoagulation? 2.0 ? 3.0Conventional Range 3.0 ? 4.5 Performed By: #### 1 2432677, 180758921, 5096087, 3498923295, 59263856, 5391057, 9930103, 22709409, 0364904, 0704337 ####[facility] [address] [place] [address] PT Coag (PPP) [Time] 12.0 second(s) Normal 9.4-12.5 [facility] Comment on above: Result Comment: 15 [...] the same coagulation reagent and instrumentation as [facility]. Currently there are no coagulation studies available worldwide for children to 14 days, and no normal ranges. Performed By: #### 1 1666663, 126169014, 8746187, 0786162009, 44589022, 0889240, 1116870, 73425693, 7558820, 5001997 ####[facility] [address] [place] [address] Pre-Arrival Noteon Pre-Arrival Note Normal [facility] Procalcitoninon 09-12-2023 Procalcitonin .10 ng/mL Normal .00-.50 [facility] Comment on above: Result Comment: <0.5 ng/mL [...] to 24 hours. Performed By: #### 1 3076204, 503868392, 9049213, 9645160635, 47922084, 1225093, 7941562, 73455443, 5599008, 2711564 ####[facility] [address] [place] [address] Rapid COVID Antigen ([facility])on 09-12-2023 Rapid COV Int NEG Ctl Pass Normal [facility] Comment on above: Performed By: #### 2 061034199, 55005763 ####[facility] [address] [place] [address] Rapid COV Int POS Ctl Pass Normal [facility] Comment on above: Performed By: #### 2 125593210, 85534034 ####[facility] [address] [place] [address] SARS-CoV+SARS-CoV-2 (COVID-19) Ag IA.rapid Ql (Resp) Not detected Normal Not Detected [facility] Comment on above: Result Comment: The 5app? System for Rapid Detection of SARS-CoV-2 is [...] or revoked sooner. Performed By: #### 2 263054963, 01871266 ####[facility] [address] [facility] [place] [address] Triglycerideson 09-12-2023 Triglyceride [Mass/Vol] 131 mg/dL Normal <=149 [facility] Comment on above: Performed By: #### 2 044344, 94504151, 1718130 ####[facility] [address] [place] [address] Troponinon 09-12-2023 Troponin 59.30 pg/mL Abnormal 15.90-38.40 [facility] Comment on above: Result Comment: Crit ical Result Verified by Repeat AnalysisCritical Result I_TnIHS:59.3 Called to and read back by: ULICES BACA at: 09/12/2023 16:43:58 by:[id number] 95% CI (Confidence Interval) PPV (Positive Predictive Value) for myocardial infarction in females is 38 pg/mL, in males 51 pg/mL. The results should be used in conjunction with clinical conditions of myocardial infarction.(Access High Sensitivity Troponin I Instructions For Use, Procyrion, March 2018) Performed By: #### 1 3602359, 231648469, 0692270, 7382552437, 22182152, 2946195, 2530048, 70128476, 8551859, 4092539 ####[facility] [address] [place] [address] U Drug Screenon 09-12-2023 U Amph Scr Negative Invalid Interpretation Code [facility] Comment on above: Performed By: #### 2 897157 ####[facility] [address] [place] [address] U Jo-Ann Scr Negative Invalid Interpretation Code [facility] Comment on above: Performed By: #### 2 142551 ####[facility] [address] [place] [address] U Benzodia Scr Negative Invalid Interpretation Code [facility] Comment on above: Performed By: #### 2 680339 ####[facility] [address] [place] [address] U Cannab Scr Negative Invalid Interpretation Code [facility] Comment on above: Performed By: #### 2 540656 ####[facility] [address] [place] [address] U Cocaine Scr Negative Invalid Interpretation Code [facility] Comment on above: Performed By: #### 2 160303 ####[facility] [address] [place] [address] U Opiate Scr Negative Invalid Interpretation Code [facility] Comment on above: Performed By: #### 2 850772 ####[facility] [address] [place] [address] U PCP Scr Negative Invalid Interpretation Code [facility] Comment on above: Performed By: #### 2 996275 ####[address] [address] UA With Cult Reflexon 2023 Bilirubin Ql (U) Negative Normal Negative [facility] Comment on above: Performed By: #### 1 [id number] ####[address] [address] Clarity (U) CLEAR Normal Clear [facility] Comment on above: Performed By: #### 1 [id number] ####[address] [address] Color (U) YELLOW Normal Yellow [facility] Comment on above: Performed By: #### 1 [id number] ####[facility] [address] [place] [address] Crystals LM Ql (Urine sed) Present Normal [facility] Comment on above: Performed By: #### 1 [id number] ####[facility] [address] [place] [address] Epithelial cells.squamous LM.HPF (Urine sed) [#/Area] 0-2 Normal 0-2 [facility] Comment on above: Performed By: #### 1 [id number] ####[facility] [address] [place] [address] Glucose Test strip (U) [Mass/Vol] 3+ Abnormal Negative [facility] Comment on above: Performed By: #### 1 [id number] ####[address] [address] Hemoglobin Ql (U) 1+ Abnormal Negative [facility] Comment on above: Performed By: #### 1 [id number] ####[address] [address] Ketones (U) [Mass/Vol] Negative Normal Negative [facility] Comment on above: Performed By: #### 1 [id number] ####[address] [address] Istachatta.plasma/Lithi um.RBC (Bld) [Mass ratio] 0-3 Normal 0-3 [facility] Comment on above: Performed By: #### 1 [id number] ####[address] [address] Nitrite Ql (U) Negative Normal Negative [facility] Comment on above: Performed By: #### 1 [id number] ####[address] [address] pH (U) 5.5 [pH] Invalid Interpretation Code 5.0-9.0 [facility] Comment on above: Performed By: #### 1 [id number] ####[address] [address] Protein (U) [Mass/Vol] 1+ Abnormal Negative [facility] Comment on above: Performed By: #### 1 [id number] ####[address] [address] Specific gravity (U) [Rel density] 1.015 Invalid Interpretation Code 1.005-1.030 [facility] Comment on above: Performed By: #### 1 [id number] ####[address] [address] Type of Urine collection method Clean Catch Normal [facility] Comment on above: Performed By: #### 1 [id number] ####[address] [address] Urobilinogen Qn (U) 0.2 {Itz'U}/dL Normal 0.0-1.0 [facility] Comment on above: Performed By: #### 1 [id number] ####[facility] [address] [place] [address] WBC Auto Ql (U) Negative Normal Negative [facility] Comment on above: Performed By: #### 1 [id number] ####[address] [place] [address] WBC LM.HPF (Urine sed) [#/Area] 0-5 Normal 0-5 [facility] Comment on above: Performed By: #### 1 [id number] ####[address] [place] [address] XR Chest Single Viewon 09-12 XR Chest Single View Normal [facility] eGFRon 09-12-2023 eGFR 28 mL/min/1.73 m2 Low >=59 [facility] Comment on above: Order Comment: Order added by Discern Expert. Performed By: #### 1 [id number], [id number] ####[address] [address] eGFR 27 mL/min/1.73 m2 Low >=59 [facility] Comment on above: Order Comment: Order added by Discern Expert. Performed By: #### 2 [id number], [id number], [id number] ####[address] [place] [address] eGFR 24 mL/min/1.73 m2 Low >=59 [facility] Comment on above: Order Comment: Order added by Discern Expert. Performed By: #### 1 [id number], [id number], [id number], [id number], [id number], [id number], [id number], [id number], [id number], [id number] ####[address] [place] [address] Consent for Procedure/Surger yon 09-11-2023 Consent for Procedure/Surgery [id number]# 1.00TIFF Normal [facility] Correspondence - [place] Correspondence - Wound [id number]# 1.00TIFF [facility] Consent for Procedure/Surger yon 09-05-2023 Consent for Procedure/Surgery [id number]# 1.00TIFF [facility] Consent for Treatmenton 08-21 Consent for Treatment [id number]#1 .00TIFF [facility] Correspondence - [place] Correspondence - Wound [id number]# 1.00TIFF [facility] Correspondence - Wound [id number]# 1.00TIFF [facility] Insurance Correspondenceon 0 09-05-2023 Insurance Correspondence [id number]# 1.00TIFF [facility] Multi-Wound Charton 09-05-19 Multi-Wound Chart [id number]# 1.00TIFF [facility] Nursing Assessment - [place] 09-05-2023 Nursing Assessment - Wound [id number]# 1.00TIFF [facility] Physician Orderon 09-05-2023 Physician Order [id number]# 1.00TIFF [facility] Progress Note - [place] 08-21 Progress Note - Wound [id number]# 1.00TIFF [facility] No Panel InformationOrdered By: Elisa Ansari on 08-30-2023 GS Occasional White Blood Cells 3+ Gram Positive Cocci 3+ Gram Positive Rods 1+ Gram Negative Rods [facility] Basophils Auto (Bld) [#/Vol] Ordered By: Alban Arrington on 06-21-2023 Basophils (Bld) [#/Vol] 0.1 10*3/uL 0.0-0.2 [facility] Basophils/100 WBC Auto (Bld) Ordered By: Alban Arrington on 06-21-2023 Basophils/100 WBC (Bld) 0.7 % . [facility] Calcium [Mass/volume] in Ser um or PlasmaOrdered By: Alban Arrington on 06-21-2023 Calcium [Mass/Vol] 8.7 mg/dL 8.6-10.3 [facility] Carbon dioxide, total [Moles /volume] in Serum or PlasmaOrdered By: Alban Arrington on 06-21-2023 CO2 [Moles/Vol] 41.1 mmol/L 21.0-31.0 [facility] Chloride [Moles/volume] in S raymond or PlasmaOrdered By: Alban Arrington on 06-21-2023 Chloride [Moles/Vol] 100 mmol/L 98-107 [facility] Creatinine [Mass/volume] in Serum or PlasmaOrdered By: Alban Arrington on 06-21-2023 Creatinine [Mass/Vol] 1.60 mg/dL 0.70-1.30 [facility] Eosinophils Auto (Bld) [#/Vo l]Ordered By: Alban Arrington on 06-21-2023 Eosinophils (Bld) [#/Vol] 0.5 10*3/uL 0.0-0.45 [facility] Eosinophils/100 WBC Auto (Bl d)Ordered By: Alban Arrington on 06-21-2023 Eosinophils/100 WBC (Bld) 5.4 % . [facility] Erythrocyte distribution wid th Auto (RBC) [Ratio]Ordered By: Alban Arrington on 06-21-2023 Erythrocyte distribution width (RBC) [Ratio] 16.0 % 12.0-14.8 [facility] Glucose Glucometer (BldC) [M ass/Vol]Ordered By: Alban Arrington on 06-21-2023 Glucose [Mass/Vol] 200 mg/dL [facility] Comment on above: Random Glucose Refer ence Range is dependent on time and content of last meal. Glucose of more than 200 mg/dL in a nonstressed, ambulatory subject supports the diagnosis of Diabetes Mellitus. Glucose [Mass/volume] in Ser um or PlasmaOrdered By: Alban Arrington on 06-21-2023 Glucose [Mass/Vol] 60 mg/dL 70-100 [facility] Comment on above: Delta: 220 on -[id number] recommended reference rangeRandom Glucose Reference Range is dependent on time and content of last meal. Glucose of more than 200 mg/dL in a nonstressed, ambulatory subject supports the diagnosis of Diabetes Mellitus. Hematocrit Auto (Bld) [Volum e fraction]Ordered By: Alban Arrington on 06-21-2023 Hematocrit (Bld) [Volume fraction] 46.3 % 38.8-50.0 [facility] Hemoglobin [Mass/volume] in BloodOrdered By: Alban Arrington on 06-21-2023 Hemoglobin (Bld) [Mass/Vol] 14.9 g/dL 13.0-17.0 [facility] Leukocytes [#/volume] correc maria guadalupe for nucleated erythrocytes in Blood by Automated counOrdered By: Alban Arrington on 06-21-2023 WBC corrected for nucl RBC Auto (Bld) [#/Vol] 9.5 10*3/uL 4.1-10.5 [facility] Lymphocytes Auto (Bld) [#/Vo l]Ordered By: Alban Arrington on 06-21-2023 Lymphocytes (Bld) [#/Vol] 2.5 10*3/uL 1.00-4.8 [facility] Lymphocytes/100 WBC Auto (Bl d)Ordered By: Alban Arrington on 06-21-2023 Lymphocytes/100 WBC (Bld) 26.3 % . [facility] MCH Auto (RBC) [Entitic mass ]Ordered By: Alban Arrington on 06-21-2023 MCH (RBC) [Entitic mass] 28.4 pg 27.5-35.2 [facility] MCHC Auto (RBC) [Mass/Vol]Or dered By: Alban Arrington on 06-21-2023 MCHC (RBC) [Mass/Vol] 32.2 g/dL 32.5-35.6 [facility] MCV Auto (RBC) [Entitic vol] Ordered By: Alban Arrington on 06-21-2023 MCV (RBC) [Entitic vol] 88.3 fL 83.5-101 [facility] Magnesium [Mass/volume] in S raymond or PlasmaOrdered By: Alban Arrington on 06-21-2023 Magnesium [Mass/Vol] 1.8 mg/dL 1.9-2.7 [facility] Monocytes Auto (Bld) [#/Vol] Ordered By: Alban Arrington on 06-21-2023 Monocytes (Bld) [#/Vol] 0.9 10*3/uL 0.0-0.8 [facility] Monocytes/100 WBC Auto (Bld) Ordered By: Alban Arrington on 06-21-2023 Monocytes/100 WBC (Bld) 9.9 % . [facility] Neutrophils Auto (Bld) [#/Vo l]Ordered By: Alban Arrington on 06-21-2023 Neutrophils (Bld) [#/Vol] 5.5 10*3/uL 1.8-7.7 [facility] Neutrophils/100 WBC Auto (Bl d)Ordered By: Alban Arrington on 06-21-2023 Neutrophils/100 WBC (Bld) 57.7 % . [facility] No Panel InformationOrdered By: Alban Arrington on 06-21-2023 Estimated GFR (CKD-EPI) 47.816 mL/Min [facility] Creatinine Clearance (Chem 69.61 [facility] Bedside Glucose #[address]/rn [facility] Bedside Glucose Comment See comment [facility] Comment on above: Glu2: Will Repeat Te st Nucleated erythrocytes [Pres ence] in Blood by Automated countOrdered By: Alban Arrington on 06-21-2023 Nucleated RBC Auto Ql (Bld) 0.1 /100{WBC} 0-0.5 [facility] Platelet mean volume Auto (B ld) [Entitic vol]Ordered By: Alban Arrington on 06-21-2023 Platelet mean volume (Bld) [Entitic vol] 7.1 fL 6.6-10.1 [facility] Platelets Auto (Bld) [#/Vol] Ordered By: Alban Arrington on 06-21-2023 Platelets (Bld) [#/Vol] 241 10*3/uL 150-450 [facility] Potassium [Moles/volume] in Serum or PlasmaOrdered By: Alban Arrington on 06-21-2023 Potassium [Moles/Vol] 4.4 mmol/L 3.5-5.1 [facility] RBC Auto (Bld) [#/Vol]Ordere d By: Alban Arrington on 06-21-2023 RBC (Bld) [#/Vol] 5.24 10*6/uL 3.90-5.60 [facility] Serum or plasma anion gap de terminationOrdered By: Alban Arrington on 06-21-2023 Anion gap [Moles/Vol] 6.3 mmol/L 6.0-15.0 [facility] Sodium [Moles/volume] in Ser um or PlasmaOrdered By: Alban Arrington on 06-21-2023 Sodium [Moles/Vol] 143 mmol/L 136-145 [facility] Urea nitrogen [Mass/volume] in Serum or PlasmaOrdered By: Alban Arrington on 06-21-2023 Urea nitrogen [Mass/Vol] 38 mg/dL 7-25 [facility] WBC Auto (Bld) [#/Vol]Ordere d By: Alban Arrington on 06-21-2023 WBC (Bld) [#/Vol] 9.5 10*3/uL 4.1-10.5 [facility] Laboratory - Chemistry and C hemistry - challengeOrdered By: Alban Arrington on 06-20-2023 CO2 [Moles/Vol] 38.0 mmol/L 23.0-27.0 [facility] HCO3 (Bld) [Moles/Vol] 36.0 mmol/L 23.0-29.0 [facility] No Panel InformationOrdered By: Alban Arrington on 06-20-2023 Arterial Blood Base Excess 8.1 mmol/L -3.0-3.0 [facility] Arterial Blood Oxygen Content 9.0 mmol/L 6.6-9.7 [facility] Arterial Blood Oxygen Saturation 94.1 % 95.0-100.0 [facility] Arterial Blood Partial Pressure CO2 63.6 mm[Hg] 35.0-45.0 [facility] Arterial Blood Partial Pressure O2 69.0 mm[Hg] 80.0-100.0 [facility] Arterial Blood pH 7.37 7.35-7.45 [facility] Blood Gas Critical Value See comment [facility] Comment on above: Critical Value dickerson d on: 06/20/2023 at 17:52 Blood Gas Liter Flow 5l L/min [facility] Blood Gas Sample Site Right radial [facility] FiO2 Na % [facility] Monocyte distribution width [Entitic volume] in Blood by AutomatedOrdered By: Alban Arrington on 06-19-2023 Monocyte distribution width Auto (Bld) [Entitic vol] 15.91 % 0.00-20.00 [facility] Automated erythrocytes count in urine sediment (number/area)Ordered By: Atr Kirby on 06-18-2023 RBC Auto (Urine sed) [#/Area] 0-1 [HPF] 0-4 [facility] Automated leukocytes count i n urine sediment (number/area)Ordered By: Art Kirby on 06-18-2023 WBC Auto (Urine sed) [#/Area] None seen [HPF] 0-4 [facility] Basophils Auto (Bld) [#/Vol] Ordered By: Art Kirby on 06-18-2023 Basophils (Bld) [#/Vol] 0.0 10*3/uL 0.0-0.2 [facility] Basophils/100 WBC Auto (Bld) Ordered By: Art Kirby on 06-18-2023 Basophils/100 WBC (Bld) 0.7 % . [facility] Bilirubin Auto test strip Ql (U)Ordered By: rAt Kirby on 06-18-2023 Bilirubin Ql (U) Negative Negative [facility] COVID CepheidOrdered By: Tanvir Kirby on 06-18-2023 SARS-CoV-2 (COVID-19) Ab IA Ql Negative Negative [facility] Comment on above: This is a duplicate Cepheid Xpert Xpress CoV-2/Flu/RSV Plus RNA by RT-PCR result to be used for statistical tracking purpose only. SARS-CoV-2 (COVID-19) RNA ERIBERTO+probe Ql (Unsp spec) [facility] Calcium [Mass/volume] in Ser um or PlasmaOrdered By: Art Kirby on 06-18-2023 Calcium [Mass/Vol] 8.8 mg/dL 8.6-10.3 [facility] Carbon dioxide, total [Moles /volume] in Serum or PlasmaOrdered By: Art Kirby on 06-18-2023 CO2 [Moles/Vol] 33.2 mmol/L 21.0-31.0 [facility] Chloride [Moles/volume] in S raymond or PlasmaOrdered By: Art Kirby on 06-18-2023 Chloride [Moles/Vol] 102 mmol/L 98-107 [facility] Creatinine [Mass/volume] in Serum or PlasmaOrdered By: Art Kirby on 06-18-2023 Creatinine [Mass/Vol] 1.51 mg/dL 0.70-1.30 [facility] Eosinophils Auto (Bld) [#/Vo l]Ordered By: Art Kirby on 06-18-2023 Eosinophils (Bld) [#/Vol] 0.2 10*3/uL 0.0-0.45 [facility] Eosinophils/100 WBC Auto (Bl d)Ordered By: Art Kirby on 06-18-2023 Eosinophils/100 WBC (Bld) 3.1 % . [facility] Erythrocyte distribution wid th Auto (RBC) [Ratio]Ordered By: Art Kirby on 06-18-2023 Erythrocyte distribution width (RBC) [Ratio] 15.4 % 12.0-14.8 [facility] Glucose [Mass/volume] in Ser um or PlasmaOrdered By: Art Kirby on 06-18-2023 Glucose [Mass/Vol] 294 mg/dL 70-100 [facility] Comment on above: ADA recommended refe rence rangeRandom Glucose Reference Range is dependent on time and content of last meal. Glucose of more than 200 mg/dL in a nonstressed, ambulatory subject supports the diagnosis of Diabetes Mellitus. Hematocrit Auto (Bld) [Volum e fraction]Ordered By: Art Kirby on 06-18-2023 Hematocrit (Bld) [Volume fraction] 46.7 % 38.8-50.0 [facility] Hemoglobin [Mass/volume] in BloodOrdered By: Art Kirby on 06-18-2023 Hemoglobin (Bld) [Mass/Vol] 14.9 g/dL 13.0-17.0 [facility] Ketones Auto test strip (U) [Mass/Vol]Ordered By: Art Kirby on 06-18-2023 Ketones (U) [Mass/Vol] Negative Negative [facility] Laboratory - UrinalysisOrder ed By: Art Kirby on 06-18-2023 Hyaline casts LM Ql (Urine sed) None seen [LPF] 0-8 [facility] Leukocytes [#/volume] correc maria guadalupe for nucleated erythrocytes in Blood by Automated counOrdered By: Art Kirby on 06-18-2023 WBC corrected for nucl RBC Auto (Bld) [#/Vol] 6.7 10*3/uL 4.1-10.5 [facility] Lymphocytes Auto (Bld) [#/Vo l]Ordered By: Art Kirby on 06-18-2023 Lymphocytes (Bld) [#/Vol] 1.4 10*3/uL 1.00-4.8 [facility] Lymphocytes/100 WBC Auto (Bl d)Ordered By: Art Kirby on 06-18-2023 Lymphocytes/100 WBC (Bld) 20.2 % . [facility] MCH Auto (RBC) [Entitic mass ]Ordered By: Art Kirby on 06-18-2023 MCH (RBC) [Entitic mass] 28.2 pg 27.5-35.2 [facility] MCHC Auto (RBC) [Mass/Vol]Or dered By: Art Kirby on 06-18-2023 MCHC (RBC) [Mass/Vol] 32.0 g/dL 32.5-35.6 [facility] MCV Auto (RBC) [Entitic vol] Ordered By: Art Kirby on 06-18-2023 MCV (RBC) [Entitic vol] 88.2 fL 83.5-101 [facility] Monocyte distribution width [Entitic volume] in Blood by AutomatedOrdered By: Art Kirby on 06-18-2023 Monocyte distribution width Auto (Bld) [Entitic vol] 15.12 % 0.00-20.00 [facility] Monocytes Auto (Bld) [#/Vol] Ordered By: Art Kibry on 06-18-2023 Monocytes (Bld) [#/Vol] 0.6 10*3/uL 0.0-0.8 [facility] Monocytes/100 WBC Auto (Bld) Ordered By: Art Kirby on 06-18-2023 Monocytes/100 WBC (Bld) 9.2 % . [facility] Natriuretic peptide B [Mass/ Vol]Ordered By: Art Kirby on 06-18-2023 Natriuretic peptide B (Bld) [Mass/Vol] 98.0 pg/mL 5-100 [facility] Neutrophils Auto (Bld) [#/Vo l]Ordered By: Art Kirby on 06-18-2023 Neutrophils (Bld) [#/Vol] 4.5 10*3/uL 1.8-7.7 [facility] Neutrophils/100 WBC Auto (Bl d)Ordered By: Art Kirby on 06-18-2023 Neutrophils/100 WBC (Bld) 66.8 % . [facility] No Panel InformationOrdered By: Art Kirby on 06-18-2023 Estimated GFR (CKD-EPI) 51.256 mL/Min [facility] Creatinine Clearance (Chem 71.87 [facility] Nucleated erythrocytes [Pres ence] in Blood by Automated countOrdered By: Art Kirby on 06-18-2023 Nucleated RBC Auto Ql (Bld) 0.1 /100{WBC} 0-0.5 [facility] Platelet mean volume Auto (B ld) [Entitic vol]Ordered By: Art Kirby on 06-18-2023 Platelet mean volume (Bld) [Entitic vol] 7.2 fL 6.6-10.1 [facility] Platelets Auto (Bld) [#/Vol] Ordered By: Art Kirby on 06-18-2023 Platelets (Bld) [#/Vol] 214 10*3/uL 150-450 [facility] Potassium [Moles/volume] in Serum or PlasmaOrdered By: Art Kirby on 06-18-2023 Potassium [Moles/Vol] 5.2 mmol/L 3.5-5.1 [facility] Protein Auto test strip (U) [Mass/Vol]Ordered By: Art Kirby on 06-18-2023 Protein (U) [Mass/Vol] 100 mg/dL Negative [facility] RBC Auto (Bld) [#/Vol]Ordere d By: Art Kirby on 06-18-2023 RBC (Bld) [#/Vol] 5.30 10*6/uL 3.90-5.60 [facility] Serum or plasma anion gap de terminationOrdered By: Art Kirby on 06-18-2023 Anion gap [Moles/Vol] 8.0 mmol/L 6.0-15.0 [facility] Sodium [Moles/volume] in Ser um or PlasmaOrdered By: Art Kirby on 06-18-2023 Sodium [Moles/Vol] 138 mmol/L 136-145 [facility] Squamous epithelial cells de tection in urine sediment by light microscopyOrdered By: Art Kirby on 06-18-2023 Epithelial cells.squamous LM Ql (Urine sed) 0-1 [HPF] 0-2 [facility] Troponin I.cardiac [Mass/vol ume] in Serum or Plasma by Detection limit <= 0.01 ng/Ordered By: Art Kirby on 06-18-2023 Troponin I.cardiac DL <= 0.01 ng/mL [Mass/Vol] 8.0 pg/mL 0.0-20.0 [facility] Urea nitrogen [Mass/volume] in Serum or PlasmaOrdered By: Art Kirby on 06-18-2023 Urea nitrogen [Mass/Vol] 47 mg/dL 7-25 [facility] Urine appearanceOrdered By: Art Kirby on 06-18-2023 Appearance (U) Clear Clear [facility] Urine bacteria detection by automated methodOrdered By: Art Kirby on 06-18-2023 Bacteria Auto Ql (U) None seen None Seen [facility] Urine colorOrdered By: Carmen Kirby on 06-18-2023 Color (U) Yellow Yellow [facility] Urine glucose measurement by automated test strip (mass/volume)Ordered By: Art Kirby on 06-18-2023 Glucose Auto test strip (U) [Mass/Vol] >=1000 mg/dL Normal [facility] Urine hemoglobin detection b y automated test stripOrdered By: Art Kirby on 06-18-2023 Hemoglobin Auto test strip Ql (U) Negative Negative [facility] Urine leukocyte esterase det ection by automated test stripOrdered By: Art Kirby on 06-18-2023 Leukocyte esterase Auto test strip Ql (U) Negative Negative [facility] Urine nitrite detection by a utomated test stripOrdered By: Art Kirby on 06-18-2023 Nitrite Auto test strip Ql (U) Negative Negative [facility] Urobilinogen Auto test strip (U) [Mass/Vol]Ordered By: Art Kirby on 06-18-2023 Urobilinogen (U) [Mass/Vol] Normal mg/dL Normal [facility] WBC Auto (Bld) [#/Vol]Ordere d By: Art Kirby on 06-18-2023 WBC (Bld) [#/Vol] 6.7 10*3/uL 4.1-10.5 [facility] pH Auto test strip (U)Ordere d By: Art Kirby on 06-18-2023 pH (U) 1.020 [pH] 1.001-1.030 [facility] pH (U) 5.5 [pH] 5.0-9.0 [facility] CHEMISTRYOrdered By: Lab ROP User on 06-15-2023 Glucose [Mass/Vol] 332 mg/dL High 55 - 99 mg/dL [facility] C POC Subsection Comment on above: Result Comment: Thelma maxwell RN/ POC Username CAROLINE OSORIO Invalid Interpretation Code [facility] POC Subsection Sodium [Moles/Vol] 215741027102 mmol/L Invalid Interpretation Code [facility] POC Subsection Sodium [Moles/Vol] [id number] mmol/L Invalid Interpretation Code [facility] POC Subsection Glucose [Mass/Vol] 341 mg/dL High 55 - 99 mg/dL [facility] C POC Subsection Comment on above: Result Comment: Thelma maxwell RN/ POC Username ORTIZ WILD Invalid Interpretation Code [facility] POC Subsection Sodium [Moles/Vol] [id number] mmol/L Invalid Interpretation Code [facility] POC Subsection Sodium [Moles/Vol] 161904785 mmol/L Invalid Interpretation Code [facility] POC Subsection Glucose [Mass/Vol] 172 mg/dL High 55 - 99 mg/dL [facility] C POC Subsection Comment on above: Result Comment: Thelma BAE POC Username ORTIZ WILD Invalid Interpretation Code [facility] POC Subsection Sodium [Moles/Vol] [id number] mmol/L Invalid Interpretation Code [facility] POC Subsection Sodium [Moles/Vol] 397091367 mmol/L Invalid Interpretation Code [facility] POC Subsection CHEMISTRYOrdered By: SYSTEM SYSTEM on 06-15-2023 Anion gap [Moles/Vol] 11 mmol/L Normal 6 - 16 mEq/L [facility] Remisol Calcium [Mass/Vol] 8.5 mg/dL Low 8.9 - 11.1 mg/dL [facility] Remisol Chloride [Moles/Vol] 105 mmol/L Normal 101 - 111 mmol/ L [facility] Remisol CO2 [Moles/Vol] 28 mmol/L Normal 21 - 31 mmol/L [facility] Remisol Creatinine [Mass/Vol] 1.6 mg/dL High 0.5 - 1.3 mg/dL [facility] Remisol GFR/1.73 sq M.predicted among non-blacks MDRD (S/P/Bld) [Vol rate/Area] 48 mL/min/1.73 m2 Low >=59mL/min/1.73 m2 [facility] Chem S Comment on above: Interpretive Data: [...] 4.7 mmol/L Normal 3.5 - 5.3 mmol/L [facility] Remisol Sodium [Moles/Vol] 139 mmol/L Normal 135 - 145 mmol/L [facility] Rem[facility] Urea nitrogen [Mass/Vol] 63 mg/dL High 5 - 21 mg/dL [facility] Urea nitrogen/Creatinine [Mass ratio] 39 mg/mg High - [facility] Remisol CHEMISTRYOrdered By: SYSTEM SYSTEM on 06-14-2023 Anion gap [Moles/Vol] 7 mmol/L Normal 6 - 16 mEq/L [facility] Remisol Calcium [Mass/Vol] 8.0 mg/dL Low 8.9 - 11.1 mg/dL [facility] Remisol Chloride [Moles/Vol] 106 mmol/L Normal 101 - 111 mmol/ L [facility] Remisol CO2 [Moles/Vol] 30 mmol/L Normal 21 - 31 mmol/L [facility] Remisol GFR/1.73 sq M.predicted among non-blacks MDRD (S/P/Bld) [Vol rate/Area] 37 mL/min/1.73 m2 Low >=59mL/min/1.73 m2 [facility] Chem S Comment on above: Interpretive Data: C hronic kidney disease could be indicated at eGFR's of less than 60 mL/min/1.73m2. Kidney failure is indicated at less than 15 mL/min/1.73m2. Glucose [Mass/Vol] 78 mg/dL Normal 55 - 199 mg/dL [facility] Comment on above: Interpretive Data: I f this glucose result represents a fasting glucose, interpretation should refer to the following reference range: 55-99 mg/dL Potassium [Moles/Vol] 5.1 mmol/L Normal 3.5 - 5.3 mmol/L [facility] Remisol Sodium [Moles/Vol] 138 mmol/L Normal 135 - 145 mmol/L [facility] Remisol Urea nitrogen [Mass/Vol] 71 mg/dL High 5 - 21 mg/dL [facility] Remisol Urea nitrogen/Creatinine [Mass ratio] 36 mg/mg High 10 - 20 [facility] Remisol CHEMISTRYOrdered By: Sandee Hicks on 06-14-2023 [...] 88.8 fL Normal 80.0 - 100.0 fL [facility] HemeAutoSS Platelet mean volume (Bld) [Entitic vol] 7.3 fL Normal 6.4 - 10.8 fL [facility] HemeAutoSS Platelets (Bld) [#/Vol] 225.0 E9/L Normal 150.0 - 500.0 E9/L [facility] HemeAutoSS RBC (Bld) [#/Vol] 4.7 E12/L Normal 4.3 - 5.9 E12/L [facility] HemeAutoSS WBC corrected for nucl RBC Auto (Bld) [#/Vol] 7.8 E9/L Normal 4.0 - 11.0 E9/L [facility] HemeAutoSS CHEMISTRYOrdered By: SYSTEM SYSTEM on 06-13-2023 Anion gap [Moles/Vol] 9 mmol/L Normal 6 - 16 mEq/L [facility] Remisol Calcium [Mass/Vol] 8.3 mg/dL Low 8.9 - 11.1 mg/dL [facility] Chloride [Moles/Vol] 102 mmol/L Normal 101 - 111 mmol/ L [facility] Remisol CO2 [Moles/Vol] 30 mmol/L Normal 21 - 31 mmol/L [facility] Remisol Creatinine [Mass/Vol] 2.4 mg/dL High 0.5 - 1.3 mg/dL [facility] Remisol GFR/1.73 sq M.predicted among non-blacks MDRD (S/P/Bld) [Vol rate/Area] 29 mL/min/1.73 m2 Low >=59mL/min/1.73 m2 [facility] Chem S Comment on above: Interpretive Data: C hronic kidney disease could be indicated at eGFR's of less than 60 mL/min/1.73m2. Kidney failure is indicated at less than 15 mL/min/1.73m2. Glucose [Mass/Vol] 139 mg/dL Normal 55 - 199 mg/dL [facility] Remisol Comment on above: Interpretive Data: I f this glucose result represents a fasting glucose, interpretation should refer to the following reference range: 55-99 mg/dL Potassium [Moles/Vol] 4.8 mmol/L Normal 3.5 - 5.3 mmol/L [facility] Remisol Sodium [Moles/Vol] 136 mmol/L Normal 135 - 145 mmol/L [facility] Remisol Urea nitrogen [Mass/Vol] 69 mg/dL High 5 - 21 mg/dL [facility] Remisol Urea nitrogen/Creatinine [Mass ratio] 29 mg/mg High 10 - 20 [facility] Remisol CRP [Mass/Vol] 0.7 mg/dL Normal <=1.9mg/dL [facility] Remis ol CHEMISTRYOrdered By: Erin morocho on 06-13-2023 Albumin Elph (U) [Mass fraction] 97.0 mg/dL Invalid Interpretation Code [facility] Remisol Comment on above: Interpretive Data: T he reference range and other method performance specifications have not been established for this test; results should be integrated into the clinical context for interpretation. Creatinine (U) [Mass/Vol] 93.4 mg/dL Invalid Interpretation Code [facility] Remiso Comment on above: Interpretive Data: T he reference range and other method performance specifications have not been established for this test; results should be integrated into the clinical context for interpretation. Sodium (U) [Moles/Vol] 21 mmol/L Invalid Interpretation Code [facility] Remiso Comment on above: Interpretive Data: T he reference range and other method performance specifications have not been established for this test; results should be integrated into the clinical context for interpretation. CHEMISTRYOrdered By: Kaz Schmidt on 06-13-2023 U Osmolality 447 mOsm/kg Normal 50 - 1400 mOsm/kg [facility] Man UA SS HEMATOLOGYOrdered By: SYSTEM SYSTEM on 06-13-2023 Basophils/100 WBC (Bld) 0.3 % Normal 0.0 - 2.0 % [facility] HemeAutoSS Basophils/Leukocytes Auto (Bld) [Pure # fraction] [...] 5.4 E9/L Normal 2.0 - 7.5 E9/L [facility] HemeAutoSS HEMATOLOGYOrdered By: Yohannes Rhodes on 06-13-2023 Erythrocyte distribution width (RBC) [Ratio] 15.4 % High 10.9 - 14.2 % FT HemeAutoSS Hematocrit (Bld) [Volume fraction] 44.4 % Normal 37.7 - 49.0 % [facility]eAutoSS Hemoglobin (Bld) [Mass/Vol] 14.0 g/dL Normal [...] 6.0 E9/L Normal 4.0 - 11.0 E9/L [facility] HemeAutoSS Reference Laboratory Testing Ordered By: Jalil DomainUser on 06-13-2023 Centromere protein B Ab Qn (S) AI Invalid Interpretation Code 0.0-0.9AI [facility] SendOutsSS Chromatin Ab Qn AI Invalid Interpretation Code 0.0-0.9AI [facility] SendOutsSS DNA double strand Ab Qn (S) 33 [iU]/mL High 0-9International_ Unit/mL FT SendOutsSS Comment on above: Result Comment: Nega tive <5 Equivocal 5 - 9 Positive >9 Violette-1 extractable nuclear Ab Qn (S) AI Invalid Interpretation Code 0.0-0.9AI [facility] SendOutsSS Nuclear Ab Ql (S) Positive Invalid Interpretation Code Negative FT SendOutsSS Comment on above: Result Comment: Perf ormed at: [facility] [id number] PhD Vern Gage Ribonucleoprotein extractable nuclear Ab Qn (S) AI Invalid Interpretation Code 0.0-0.9AI [facility] SendOutsSS SCL-70 extractable nuclear Ab Qn (S) AI Invalid Interpretation Code 0.0-0.9AI [facility] SendOutsSS See below: Comment Invalid Interpretation Code [facility] SendOutsSS Comment on above: Result Comment: Tarah ramos Potential Disease Association Homogeneous Systemic Lupus Erythematosus, Drug Induced Systemic Lupus Erythematosus, Chronic Autoimmune hepatitis, Juvenile Idiopathic Arthritis Speckled Sjogren Syndrome, Systemic Lupus Erythematosus, Subacute Cutaneous Lupus, Lupus, Congenital Heart Block, Mixed Connective Tissue Disease, Scleroderma-diffuse, Scleroderma-Autoimmune Myositis Overlap Syndrome, Systemic Lupus Hhcrnmjyzkekv-Ixgafsnzjjd-Mqhpkahbkw Myositis Overlap Syndrome, Systemic Autoimmune Rheumatic Disease, [...] Cytopenias, Linear Scleroderma, Antiphospholipid Syndrome Performed at: [facility] [id number] PhD Vern Gage Sjogrens syndrome-A extractable nuclear Ab Qn (S) AI Invalid Interpretation Code 0.0-0.9AI [facility] Sjogrens syndrome-B extractable nuclear Ab Qn (S) AI Invalid Interpretation Code 0.0-0.9AI [facility] SendOutsSS Quinn extractable nuclear Ab Qn (S) AI Invalid Interpretation Code 0.0-0.9AI [facility] URINALYSISOrdered By: Yohannes Schmidt on 06-13-2023 [...] AM) Normal Negative [facility] UA Auto SS [place].plasma/Lithi um.RBC (Bld) [Mass ratio] 0-3 /HPF Normal [...] FT UA Auto SS Urobilinogen Qn (U) 0.8571528 {Itz'U}/dL Normal 0.0 - 1.0 EU/dL [facility] [...] 0.07 ng/mL Normal 0.00 - 0.50 ng/mL [facility] Remisol Comment on above: Interpretive Data: < [...] 9.10 pg/mL Low 15.90 - 38.40 pg/mL [facility] Remisol Comment on above: Interpretive Data: T he 95% CI (Confidence Interval) PPV (Positive Predictive Value) for myocardial infarction in females is 38 pg/mL, in males 51 pg/mL. The results should be used in conjunction with clinical conditions of myocardial infarction. (Access High Sensitivity Troponin I Instructions For Use, Procyrion, March 2018) Magnesium [Mass/Vol] 2.1 mg/dL Normal 1.3 - 2.4 mg/dL [facility] Remisol Troponin I.cardiac [Mass/Vol] 9.20 pg/mL Low 15.90 - 38.40 pg/mL [facility] Remisol Comment on above: Interpretive Data: T he 95% CI (Confidence Interval) PPV (Positive Predictive Value) for myocardial infarction in females is 38 pg/mL, in males 51 pg/mL. The results should be used in conjunction with clinical conditions of myocardial infarction. (Access High Sensitivity Troponin I Instructions For Use, Procyrion, March 2018) Troponin I.cardiac [Mass/Vol] 7.00 pg/mL Low 15.90 - 38.40 pg/mL FT Remisol Comment on above: Interpretive Data: T he 95% CI (Confidence Interval) PPV (Positive Predictive Value) for myocardial infarction in females is 38 pg/mL, in males 51 pg/mL. The results should be used in conjunction with clinical conditions of myocardial infarction. (Access High Sensitivity Troponin I Instructions For Use, Procyrion, March 2018) Lactate [Mass/Vol] 1.7 mmol/L Normal 0.5 - 2.2 mmol/L [facility] Remisol CHEMISTRYOrdered By: Sasha Arroyo on 06-11-2023 Natriuretic peptide B (Bld) [Mass/Vol] 121 pg/mL High 5 - 80 pg/mL [facility] HemeManSS COAGULATIONOrdered By: Radha Quinn on 06-11-2023 aPTT Coag (PPP) [Time] 33.9 s Normal 25.1 - 36.5 second(s) [facility] Auto Coag Comment on above: Interpretive Data: [...] the same coagulation reagent and instrumentation as [facility]. Currently there are no coagulation studies available worldwide for children to 14 days, and no normal ranges. Heparin therapeutic range (represented by Anti-Factor Xa activity of 0.2 - 0.4 U/mL) corresponds to PTT of 56.6 - 109.0 sec. INR Coag (PPP) [Relative time] 1.0 {INR} Invalid Interpretation Code [facility] Auto Coag Comment on above: Interpretive Data: I NR results are specifically intended to assess patients stabilized on long-term Anticoagulation therapy suggested INR s Less Intensive Anticoagulation 2.0 3.0 Conventional Range 3.0 4.5 PT Coag (PPP) [Time] 11.2 s Normal 9.4 - 1 2.5 second(s) [facility] Auto Coag Comment on above: Interpretive Data: [...] the same coagulation reagent and instrumentation as [facility]. Currently there are no coagulation studies available [...] 2.2 mmol/L [facility] Res p Auto SS supervisor scrap preparation+ Art 140.0 mmol/L Normal 135.0 - 145.0 [...] 28.8 mmol/L High 22.0 - 26.0 mmol/L [facility] Resp Auto SS Hemoglobin (Bld) [Mass/Vol] 14.5 g/dL Normal 12.0 - 17.0 gm/dL [facility] Resp Auto SS P CO2 Arterial 59.5 mm[Hg] High 35.0 - 45.0 mmHg FT C Resp Auto SS P O2 Arterial 57.8 mm[Hg] Low 80.0 - 100.0 mmHg FT C Resp Auto SS pH (Bld) 7.348 [pH] Low 7.350 - 7.450 [facility] Resp Auto SS Sample Site L Radial (06/11/23 2:22 PM) Normal [facility] Resp Auto SS Sample Type Arterial Draw (06/11/23 2:22 PM) Normal [facility] Resp Auto SS Sodium [Moles/Vol] 32 mmol/L Invalid Interpretation Code [facility] Resp Auto SS HEMATOLOGYOrdered By: SYSTEM SYSTEM [...] POS Ctl Pass (06/11/23 2:16 PM) Normal [facility] Man Sero SARS-CoV+SARS-CoV-2 (COVID-19) Ag IA.rapid Ql (Resp) Not Detected (06/11/23 2:16 PM) Normal Not Detected [facility] Man Sero Comment on above: Interpretive Data: T lemuel OluKai Veritor System for Rapid Detection of SARS-CoV-2 [...] or revoked sooner. No Panel InformationOrdered By: [facility] on 06-11-2023 Blood Culture Charcoal No growth at 4 days. Final to follow at 7 days. [facility] Blood Culture Charcoal No growth at 4 days. Final to follow at 7 days. [facility] CHEMISTRYOrdered By: Tatyana Long on 05-22-2023 HbA1c (Bld) [Mass fraction] 11.0 % High <=5.9% [facility] ChemAutoSS CHEMISTRYOrdered By: Yahaira ROP User on 08-04-2022 Glucose [Mass/Vol] mg/dL Invalid Interpretation Code 55 - 99 mg/dL [facility] POC Subsection Comment on above: Result Comment: Thelma maxwell RN/ POC Device SN [id number] Invalid Interpretation Code FT POC Subsection POC User ID [id number] Invalid Interpretation Code [facility] POC Subsection POC Username JANIA BALDWIN Invalid Interpretation Code [facility] POC Subsection CHEMISTRYOrdered By: SYSTEM SYSTEM on [...] rate/Area] 41 mL/min/1.73 m2 Low >=59mL/min/1.73 m2 [facility] Chem S Glucose [Mass/Vol] 897 mg/dL Invalid [...] Result Comment: Thelma BAE POC Device SN [id number] Invalid Interpretation Code [facility] POC Subsection POC User ID [id number] Invalid Interpretation Code [facility] POC Subsection POC Username TRINIDADHUDSON DYSON Invalid Interpretation Code [facility] POC Subsection CHEMISTRYOrdered By: Lab ROP User on 03-08-2022 Glucose [Mass/Vol] 395 mg/dL High 55 - 99 mg/dL [facility] C POC Subsection Comment on above: Result Comment: Thelma BAE POC Device SN [id number] Invalid Interpretation Code [facility] POC Subsection POC User ID [id number] Invalid Interpretation Code [facility] POC Subsection POC [...] rate/Area] 57 mL/min/1.73 m2 Low >=59mL/min/1.73 m2 [facility] Chem S GFR/1.73 sq M.predicted among non-blacks [...] PM) Normal Negative [facility] UA Auto SS [place].plasma/Lithi um.RBC (Bld) [Mass ratio] 0-3 /HPF Normal [...] [facility] UA Auto SS Urobilinogen Qn (U) 0.5542457 {Itz'U}/dL Normal 0.0 - 1.0 EU/dL [facility] UA Auto SS WBC Auto Ql (U) Negative (03/08/22 11:09 PM) Normal Negative [facility] UA Auto SS WBC LM.HPF (Urine sed) [#/Area] 0-5 /HPF Normal 0-5/HPF [facility] UA Auto SS Vital Signs Date Time Vital Sign Value Performing Clinician Facility 03-13-2025 12:30-0400 Body height 180.3 cm Mounika Brooke MD Work Phone: [facility] 03-13-2025 12:30-0400 Body mass index (BMI) [Ratio] 38.02 kg/m2 Mounika Brooke MD Work Phone: [facility] 03-13-2025 12:30-0400 Body temperature 98.4 [degF] Mounika Brooke MD Work Phone: [facility] 03-13-2025 12:30-0400 Body weight 123.65 kg Mounika Brooke MD Work Phone: [facility] 03-13-2025 12:30-0400 Diastolic blood pressure 60 mm[Hg] Mounika Brooke MD Work Phone: [facility] 03-13-2025 12:30-0400 Heart rate 80 /min Mounika Brooke MD Work Phone: [facility] 03-13-2025 12:30-0400 SaO2% (BldA) [Mass fraction] 92 % Mounika Brooke MD Work Phone: [facility] 03-13-2025 12:30-0400 Systolic blood pressure 124 mm[Hg] Mounika Brooke MD Work Phone: [facility] 02-05-2025 12:28-0400 Body height 180.3 cm Mounika Brooke MD Work Phone: [facility] 02-05-2025 12:28-0400 Body mass index (BMI) [Ratio] 36.43 kg/m2 Mounika Brooke MD Work Phone: [facility] 02-05-2025 12:28-0400 Body temperature 98.71 [degF] Mounika Brooke MD Work Phone: [facility] 02-05-2025 12:28-0400 Body weight 118.48 kg Mounika Brooke MD Work Phone: [facility] 02-05-2025 12:28-0400 Diastolic blood pressure 82 mm[Hg] Mounika Brooke MD Work Phone: [facility] 02-05-2025 12:28-0400 Heart rate 77 /min Mounika Brooke MD Work Phone: [facility] 02-05-2025 12:28-0400 SaO2% (BldA) [Mass fraction] 98 % Mounika Brooke MD Work Phone: [facility] 02-05-2025 12:28-0400 Systolic blood pressure 138 mm[Hg] Mounika Brooke MD Work Phone: [facility] 12-21-2024 15:22-0400 Hourly Rounding [facility] 12-21-2024 15:22-0400 Promise to Return [facility] 12-21-2024 14:32-0400 Hourly Rounding [facility] 12-21-2024 14:32-0400 Promise to Return [facility] 12-21-2024 13:30-0400 Hourly Rounding [facility] 12-21-2024 13:30-0400 Promise to Return [facility] 12-21-2024 11:00-0400 Blood Pressure Location [facility] 12-21-2024 11:00-0400 Body temperature 97.88 [degF] [facility] 12-21-2024 11:00-0400 Diastolic blood pressure 78 mm[Hg] [facility] 12-21-2024 11:00-0400 Heart rate 80 /min [facility] 12-21-2024 11:00-0400 Mean blood pressure 100 mm[Hg] [facility] 12-21-2024 11:00-0400 Respiratory rate 16 /min [facility] 12-21-2024 11:00-0400 SaO2% (BldA) [Mass fraction] 96 % [facility] 12-21-2024 11:00-0400 Systolic blood pressure 145 mm[Hg] [facility] 12-21-2024 08:00-0400 Diastolic blood pressure 88 mm[Hg] [facility] 12-21-2024 08:00-0400 Heart rate 76 /min [facility] 12-21-2024 08:00-0400 Mean blood pressure 113 mm[Hg] [facility] 12-21-2024 08:00-0400 SaO2% (BldA) [Mass fraction] 97 % [facility] 12-21-2024 08:00-0400 Systolic blood pressure 164 mm[Hg] [facility] 12-21-2024 04:00-0400 Body temperature 97.7 [degF] [facility] 12-21-2024 04:00-0400 Diastolic blood pressure 60 mm[Hg] [facility] 12-21-2024 04:00-0400 Diastolic blood pressure 76 mm[Hg] [facility] 12-21-2024 04:00-0400 Heart rate 95 /min [facility] 12-21-2024 04:00-0400 Heart rate 62 /min [facility] 12-21-2024 04:00-0400 Mean blood pressure 90 mm[Hg] [facility] 12-21-2024 04:00-0400 Mean blood pressure 72 mm[Hg] [facility] 12-21-2024 04:00-0400 Respiratory rate 18 /min [facility] 12-21-2024 04:00-0400 SaO2% (BldA) [Mass fraction] 95 % [facility] 12-21-2024 04:00-0400 Systolic blood pressure 97 mm[Hg] [facility] 12-21-2024 04:00-0400 Systolic blood pressure 118 mm[Hg] [facility] 12-21-2024 00:00-0400 Heart rate 62 /min [facility] 12-20-2024 19:37-0400 Heart rate 67 /min [facility] 12-20-2024 14:09-0400 SaO2% (BldA) [Mass fraction] 93.9 % [facility] Resp Auto SS 12-04-2024 14:11-0400 Body height 180.3 cm Mounika Brooke MD Work Phone: [facility] 12-04-2024 14:11-0400 Body mass index (BMI) [Ratio] 35.7 kg/m2 Mounika Brooke MD Work Phone: [facility] 12-04-2024 14:11-0400 Body temperature 97.5 [degF] Mounika Brooke MD Work Phone: [facility] 12-04-2024 14:11-0400 Body weight 116.12 kg Mounika Brooke MD Work Phone: [facility] 12-04-2024 14:11-0400 Diastolic blood pressure 70 mm[Hg] Mounika Brooke MD Work Phone: [facility] 12-04-2024 14:11-0400 Heart rate 111 /min Mounika Brooke MD Work Phone: [facility] 12-04-2024 14:11-0400 SaO2% (BldA) [Mass fraction] 97 % Mounika Brooke MD Work Phone: [facility] 12-04-2024 14:11-0400 Systolic blood pressure 120 mm[Hg] Mounika Brooke MD Work Phone: [facility] 12-02-2024 15:00-0400 Heart rate 74 /min Nicole Yolande [facility] 12-02-2024 15:00-0400 SaO2% (BldA) [Mass fraction] 93 % Nicole Yolande [facility] 12-02-2024 15:00-0400 Diastolic blood pressure 97 mm[Hg] Nicole Yolande [facility] 12-02-2024 15:00-0400 Mean blood pressure 120 mm[Hg] Nicole Yolande [facility] 12-02-2024 15:00-0400 Respiratory rate 18 /min Nicole Yolande [facility] 12-02-2024 15:00-0400 Systolic blood pressure 166 mm[Hg] Nicole Yolande [facility] 12-02-2024 14:00-0400 SaO2% (BldA) [Mass fraction] 97 % Nicole Yolande [facility] 12-02-2024 14:00-0400 Heart rate 78 /min Nicole Yolande [facility] 12-02-2024 14:00-0400 Diastolic blood pressure 86 mm[Hg] Nicole Yolande [facility] 12-02-2024 14:00-0400 Mean blood pressure 113 mm[Hg] Nicole Yolande [facility] 12-02-2024 14:00-0400 Systolic blood pressure 167 mm[Hg] Nicole Yolande [facility] 12-02-2024 13:00-0400 SaO2% (BldA) [Mass fraction] 96 % Nicole Yolande [facility] 12-02-2024 13:00-0400 Heart rate 73 /min Nicole Yolande [facility] 12-02-2024 13:00-0400 Diastolic blood pressure 98 mm[Hg] Nicole Myers [facility] 12-02-2024 13:00-0400 Mean blood pressure 123 mm[Hg] Nicole Myers [facility] 12-02-2024 13:00-0400 Systolic blood pressure 173 mm[Hg] Niocle Myers [facility] 12-02-2024 12:42-0400 Body temperature 96.8 [degF] Nicole Myers [facility] 12-02-2024 12:42-0400 Heart rate 81 /min Nicole Myers [facility] 12-02-2024 12:42-0400 Respiratory rate 20 /min Nicole Myers [facility] 09-04-2024 14:00-0500 Body height 180.3 cm Kayla Sweeney MD Work Phone: [facility] 09-04-2024 14:00-0500 Body mass index (BMI) [Ratio] 39.05 kg/m2 Kayla Sweeney MD Work Phone: [facility] 09-04-2024 14:00-0500 Body weight 127.01 kg Kayla Sweeney MD Work Phone: [facility] 09-04-2024 14:00-0500 Diastolic blood pressure 66 mm[Hg] Kayla Sweeney MD Work Phone: [facility] 09-04-2024 14:00-0500 Heart rate 80 /min Kayla Sweeney MD Work Phone: [facility] 09-04-2024 14:00-0500 Respiratory rate 18 /min Kayla Sweeney MD Work Phone: [facility] 09-04-2024 14:00-0500 Systolic blood pressure 116 mm[Hg] Kayla Sweeney MD Work Phone: [facility] 07-15-2024 14:27-0500 Body height 180.3 cm Kayla Sweeney MD Work Phone: [facility] 07-15-2024 14:27-0500 Body mass index (BMI) [Ratio] 38.22 kg/m2 Kayla Sweeney MD Work Phone: [facility] 07-15-2024 14:27-0500 Body weight 124.29 kg Kayla Sweeney MD Work Phone: [facility] 07-15-2024 14:27-0500 Diastolic blood pressure 58 mm[Hg] Kayla Sweeney MD Work Phone: [facility] 07-15-2024 14:27-0500 Heart rate 81 /min Kayla Sweeney MD Work Phone: [facility] 07-15-2024 14:27-0500 Respiratory rate 18 /min Kayla Sweeney MD Work Phone: [facility] 07-15-2024 14:27-0500 Systolic blood pressure 120 mm[Hg] Kayla Sweeney MD Work Phone: [facility] 07-11-2024 13:50-0500 Body height 175.3 cm Mounika Brooke MD Work Phone: [facility] 07-11-2024 13:50-0500 Body mass index (BMI) [Ratio] 43.15 kg/m2 Mounika Brooke MD Work Phone: [facility] 07-11-2024 13:50-0500 Body temperature 97.81 [degF] Mounika Brooke MD Work Phone: [facility] 07-11-2024 13:50-0500 Body weight 132.54 kg Mounika Brooke MD Work Phone: [facility] [facility] 07-11-2024 13:50-0500 Diastolic blood pressure 80 mm[Hg] Mounika Brooke MD Work Phone: [facility] 07-11-2024 13:50-0500 Heart rate 73 /min Mounika Brooke MD Work Phone: [facility] 07-11-2024 13:50-0500 SaO2% (BldA) [Mass fraction] 92 % Mounika Brooke MD Work Phone: [facility] 07-11-2024 13:50-0500 Systolic blood pressure 130 mm[Hg] Mounika Brooke MD Work Phone: [facility] 07-09-2024 14:40-0500 Body temperature 98.06 [degF] Nicole Myers [facility] 07-09-2024 14:40-0500 Diastolic blood pressure 93 mm[Hg] Nicole Myers [facility] 07-09-2024 14:40-0500 Heart rate 73 /min Nicole Myers [facility] 07-09-2024 14:40-0500 Respiratory rate 20 /min Nicole Myers [facility] 07-09-2024 14:40-0500 SaO2% (BldA) [Mass fraction] 96 % Nicole Myers [facility] 07-09-2024 14:40-0500 Systolic blood pressure 196 mm[Hg] Nicole Myers [facility] 07-03-2024 12:45-0500 Body mass index (BMI) [Ratio] 43.3 kg/m2 Mounika Brooke MD Work Phone: [facility] 07-03-2024 12:45-0500 Body temperature 98.01 [degF] Mounika Brooke MD Work Phone: [facility] 07-03-2024 12:45-0500 Body weight 133 kg Mounika Brooke MD Work Phone: [facility] 07-03-2024 12:45-0500 Heart rate 84 /min Mounika Brooke MD Work Phone: [facility] 07-03-2024 12:45-0500 SaO2% (BldA) [Mass fraction] 93 % Mounika Brooke MD Work Phone: [facility] 06-23-2024 13:39-0500 Body temperature 97.7 [degF] [facility] 06-23-2024 13:39-0500 Diastolic blood pressure 79 mm[Hg] [facility] 06-23-2024 13:39-0500 Heart rate 71 /min [facility] 06-23-2024 13:39-0500 Respiratory rate 22 /min [facility] 06-23-2024 13:39-0500 SaO2% (BldA) [Mass fraction] 92 % [facility] 06-23-2024 13:39-0500 Systolic blood pressure 182 mm[Hg] [facility] 06-21-2024 13:36-0400 Body height 177.8 cm Jennifer Short PA Work Phone: [facility] 06-21-2024 13:36-0400 Body mass index (BMI) [Ratio] 41.78 kg/m2 Jennifer Short PA Work Phone: [facility] 06-21-2024 13:36-0400 Body temperature 98.1 [degF] Jennifer Short PA Work Phone: [facility] 06-21-2024 13:36-0400 Body weight 132.09 kg Jennifer Short PA Work Phone: [facility] 06-21-2024 13:36-0400 Diastolic blood pressure 89 mm[Hg] Jennifer Short PA Work Phone: [facility] 06-21-2024 13:36-0400 Heart rate 71 /min Jennifer ROWAN Work Phone: [facility] 06-21-2024 13:36-0400 SaO2% (BldA) [Mass fraction] 91 % Jennifer Short PA Work Phone: [facility] 06-21-2024 13:36-0400 Systolic blood pressure 139 mm[Hg] Jennifer ROWAN Work Phone: [facility] 04-29-2024 14:19-0400 Body height 177.8 cm Mounika Brooke MD Work Phone: [facility] 04-29-2024 14:19-0400 Body mass index (BMI) [Ratio] 42.47 kg/m2 Mounika Brooke MD Work Phone: [facility] 04-29-2024 14:19-0400 Body temperature 98.01 [degF] Mounika Brooke MD Work Phone: [facility] 04-29-2024 14:19-0400 Body weight 134.26 kg Mounika Brooke MD Work Phone: [facility] 04-29-2024 14:19-0400 Diastolic blood pressure 70 mm[Hg] Mounika Brooke MD Work Phone: [facility] 04-29-2024 14:19-0400 Heart rate 75 /min Mounika Brooke MD Work Phone: [facility] 04-29-2024 14:19-0400 SaO2% (BldA) [Mass fraction] 88 % Mounika Brooke MD Work Phone: [facility] 04-29-2024 14:19-0400 Systolic blood pressure 138 mm[Hg] Mounika Brooke MD Work Phone: [facility] 02-09-2024 14:31-0400 Blood Pressure Location [facility] 02-09-2024 14:31-0400 Body temperature 97.88 [degF] Gisselle Orzech [facility] 02-09-2024 14:31-0400 Diastolic blood pressure 86 mm[Hg] Gisselle Orzech [facility] 02-09-2024 14:31-0400 Heart rate 72 /min Gisselle Orzech [facility] 02-09-2024 14:31-0400 Respiratory rate 16 /min Gisselle Orzech [facility] 02-09-2024 14:31-0400 Systolic blood pressure 138 mm[Hg] Gisselle Orzech [facility] 01-15-2024 17:00-0400 Diastolic blood pressure 89 mm[Hg] Nicole Yolande [facility] 01-15-2024 17:00-0400 Heart rate 77 /min Nicole Yolande [facility] 01-15-2024 17:00-0400 Mean blood pressure 102 mm[Hg] Nicole Yolande [facility] 01-15-2024 17:00-0400 Respiratory rate 15 /min Nicole Yolande [facility] 01-15-2024 17:00-0400 Systolic blood pressure 128 mm[Hg] Nicole Yolande [facility] 01-15-2024 16:24-0400 Diastolic blood pressure 93 mm[Hg] Nicole Yolande [facility] 01-15-2024 16:24-0400 Heart rate 69 /min Nicole Yolande [facility] 01-15-2024 16:24-0400 Respiratory rate 18 /min Nicole Myers [facility] 01-15-2024 16:24-0400 SaO2% (BldA) [Mass fraction] 92 % Nicole Myers [facility] 01-15-2024 16:24-0400 Systolic blood pressure 156 mm[Hg] Nicole Myers [facility] 11-17-2023 12:30-0400 Diastolic blood pressure 78 mm[Hg] MD Mounika Brooke Work Phone: [facility] 11-17-2023 12:30-0400 Systolic blood pressure 153 mm[Hg] MD Mounika Brooke Work Phone: [facility] 11-17-2023 12:12-0400 Heart rate 82 /min MD Mounika Brooke Work Phone: [facility] 11-17-2023 12:12-0400 Respiratory rate 20 /min MD Mounika Brooke Work Phone: [facility] 11-17-2023 11:26-0400 Body temperature 97.6 [degF] MD Mounika Brooke Work Phone: [facility] 11-17-2023 11:26-0400 SaO2% (BldA) [Mass fraction] 96 % MD Mounika Brooke Work Phone: [facility] 11-17-2023 09:15-0400 Inhaled oxygen flow rate 4 L/min MD Mounika Brooke Work Phone: [facility] 11-17-2023 04:17-0400 Body weight 133.2 kg MD Mounika Brooke Work Phone: [facility] 11-17-2023 00:50-0400 Inhaled oxygen concentration 40 % MD Mounika Brooke Work Phone: [facility] 11-13-2023 15:19-0400 Body height 180.34 cm MD Mounika Brooke Work Phone: [facility] 11-11-2023 16:30-0400 Diastolic blood pressure 65 mm[Hg] [facility] 11-11-2023 16:30-0400 Heart rate 63 /min [facility] 11-11-2023 16:30-0400 Mean blood pressure 79 mm[Hg] [facility] 11-11-2023 16:30-0400 Respiratory rate 18 /min [facility] 11-11-2023 16:30-0400 SaO2% (BldA) [Mass fraction] 96 % [facility] 11-11-2023 16:30-0400 Systolic blood pressure 106 mm[Hg] [facility] 11-11-2023 16:00-0400 Diastolic blood pressure 62 mm[Hg] [facility] 11-11-2023 16:00-0400 Heart rate 64 /min [facility] 11-11-2023 16:00-0400 Mean blood pressure 84 mm[Hg] [facility] 11-11-2023 16:00-0400 Respiratory rate 15 /min [facility] 11-11-2023 16:00-0400 Systolic blood pressure 128 mm[Hg] [facility] 11-11-2023 15:30-0400 Diastolic blood pressure 77 mm[Hg] [facility] 11-11-2023 15:30-0400 Heart rate 62 /min [facility] 11-11-2023 15:30-0400 Mean blood pressure 98 mm[Hg] [facility] 11-11-2023 15:30-0400 Respiratory rate 20 /min [facility] 11-11-2023 15:30-0400 SaO2% (BldA) [Mass fraction] 95 % [facility] 11-11-2023 15:30-0400 Systolic blood pressure 141 mm[Hg] [facility] 11-11-2023 09:31-0400 FIO2 50 1 [facility] 11-11-2023 09:31-0400 Respiratory rate 20 /min [facility] 11-11-2023 09:17-0400 SaO2% (BldA) [Mass fraction] 88.7 % [facility] 11-11-2023 09:15-0400 Respiratory rate 24 /min [facility] 11-11-2023 09:07-0400 Respiratory rate 24 /min [facility] 11-11-2023 09:05-0400 Body temperature 98.6 [degF] [facility] 11-11-2023 09:05-0400 Heart rate 77 /min [facility] 11-11-2023 09:05-0400 Heart rate 76 /min [facility] 11-11-2023 08:05-0400 Body temperature 98.6 [degF] [facility] 10-30-2023 05:17-0400 Body temperature 98.42 [degF] [employer] Dokken [facility] 10-30-2023 05:17-0400 Diastolic blood pressure 70 mm[Hg] Kaylinn Dokken [facility] 10-30-2023 05:17-0400 Heart rate 80 /min Kaylinn Dokken [facility] 10-30-2023 05:17-0400 Respiratory rate 20 /min [employer] [facility] 10-30-2023 05:17-0400 SaO2% (BldA) [Mass fraction] 94 % Staci Beck [facility] 10-30-2023 05:17-0400 Systolic blood pressure 153 mm[Hg] Staci Beck [facility] 10-24-2023 23:08-0500 SaO2% (BldA) [Mass fraction] 93 % [facility] Comment on above: Order Comment: Specimen Type: BLOOD SPEC IMEN Ordering Facility: [facility] Address: [address] [place] [address] Performed By: #### 1 [id number], [id number] #### [facility] CLIA [id number] [address] [place] [address] [facility] 10-24-2023 18:39-0500 SaO2% (BldA) [Mass fraction] 96 % [facility] Comment on above: Order Comment: Specimen Type: BLOOD SPEC IMEN Ordering Facility: [facility] Address: [address] [place] [address] Performed By: #### P TTAC #### [facility] CLIA [id number] [address] [place] [address] [facility] 10-15-2023 06:20-0500 SaO2% (BldA) [Mass fraction] 98 % Mone Martinez [facility] 10-15-2023 06:12-0500 Body temperature 98.06 [degF] Mone Martinez [facility] 10-15-2023 06:12-0500 Diastolic blood pressure 75 mm[Hg] Mone Martinez [facility] 10-15-2023 06:12-0500 Heart rate 77 /min Mone Martinez [facility] 10-15-2023 06:12-0500 Respiratory rate 20 /min Mone Martinez [facility] 10-15-2023 06:12-0500 SaO2% (BldA) [Mass fraction] 98 % Mone Martinez [facility] 10-15-2023 06:12-0500 Systolic blood pressure 145 mm[Hg] Mone Martinez [facility] 10-12-2023 11:38-0500 Body temperature 97 [degF] MD Mounika Brooke Work Phone: [facility] 10-12-2023 11:38-0500 Diastolic blood pressure 76 mm[Hg] MD Mounika Brooke Work Phone: [facility] 10-12-2023 11:38-0500 Heart rate 74 /min MD Mounika Brooke Work Phone: [facility] 10-12-2023 11:38-0500 Inhaled oxygen flow rate 4 L/min MD Mounika Brooke Work Phone: [facility] 10-12-2023 11:38-0500 Respiratory rate 18 /min MD Mounika Brooke Work Phone: [facility] 10-12-2023 11:38-0500 SaO2% (BldA) [Mass fraction] 97 % MD Mounika Brooke Work Phone: [facility] 10-12-2023 11:38-0500 Systolic blood pressure 148 mm[Hg] MD Mounika Brooke Work Phone: [facility] 10-12-2023 05:08-0500 Body weight 135.6 kg MD Mounika Brooke Work Phone: [facility] 10-12-2023 00:00-0500 Inhaled oxygen concentration 4 % MD Mounika Brooke Work Phone: [facility] 10-09-2023 14:10-0500 Body height 182.88 cm MD Mounika Brooke Work Phone: [facility] 10-06-2023 23:47-0500 Body temperature 98.4 [degF] MD Mounika Brooke Work Phone: [facility] 10-06-2023 23:47-0500 Diastolic blood pressure 78 mm[Hg] MD Mounika Brooke Work Phone: [facility] 10-06-2023 23:47-0500 Heart rate 80 /min MD Muonika Brooke Work Phone: [facility] 10-06-2023 23:47-0500 Inhaled oxygen flow rate 6 L/min MD Mounika Brooke Work Phone: [facility] 10-06-2023 23:47-0500 Respiratory rate 20 /min MD Mounika Brooke Work Phone: [facility] 10-06-2023 23:47-0500 SaO2% (BldA) [Mass fraction] 94 % MD Mounika Brooke Work Phone: [facility] 10-06-2023 23:47-0500 Systolic blood pressure 160 mm[Hg] MD Mounika Brooke Work Phone: [facility] 10-06-2023 20:13-0500 Body height 182.88 cm MD Mounika Brooke Work Phone: [facility] 10-06-2023 20:13-0500 Body weight 136.98 kg MD Mounika Brooke Work Phone: [facility] 09-24-2023 20:07-0500 Body temperature 97.52 [degF] Jose Miguel Sylvester [facility] 09-24-2023 20:07-0500 Diastolic blood pressure 75 mm[Hg] Jose Miguel Sylvester [facility] 09-24-2023 20:07-0500 Heart rate 80 /min Jose Miguel Sylvester [facility] 09-24-2023 20:07-0500 Respiratory rate 18 /min Jose Miguel Sylvester [facility] 09-24-2023 20:07-0500 SaO2% (BldA) [Mass fraction] 93 % Jose Miguel Sylvester [facility] 09-24-2023 20:07-0500 Systolic blood pressure 150 mm[Hg] [facility] Sylvester [facility] 09-17-2023 15:00-0500 Diastolic blood pressure 67 mm[Hg] [facility] 09-17-2023 15:00-0500 Heart rate 80 /min [facility] 09-17-2023 15:00-0500 Mean blood pressure 94 mm[Hg] [facility] 09-17-2023 15:00-0500 Respiratory rate 18 /min [facility] 09-17-2023 15:00-0500 SaO2% (BldA) [Mass fraction] 93 % [facility] 09-17-2023 15:00-0500 Systolic blood pressure 147 mm[Hg] [facility] 09-17-2023 14:23-0500 Body temperature 98.24 [degF] [facility] 09-17-2023 14:23-0500 Diastolic blood pressure 56 mm[Hg] [facility] 09-17-2023 14:23-0500 Heart rate 79 /min [facility] 09-17-2023 14:23-0500 Respiratory rate 20 /min [facility] 09-17-2023 14:23-0500 SaO2% (BldA) [Mass fraction] 92 % [facility] 09-17-2023 14:23-0500 Systolic blood pressure 99 mm[Hg] [facility] 08-06-2023 13:13-0500 Body temperature 97.88 [degF] [facility] 08-06-2023 13:13-0500 Diastolic blood pressure 78 mm[Hg] [facility] 08-06-2023 13:13-0500 Heart rate 91 /min [facility] 08-06-2023 13:13-0500 Respiratory rate 20 /min [facility] 08-06-2023 13:13-0500 SaO2% (BldA) [Mass fraction] 93 % [facility] 08-06-2023 13:13-0500 Systolic blood pressure 178 mm[Hg] [facility] 06-21-2023 13:55-0400 Diastolic blood pressure 74 mm[Hg] DO [facility] 06-21-2023 13:55-0400 Inhaled oxygen flow rate 4 L/min DO [facility] 06-21-2023 13:55-0400 SaO2% (BldA) [Mass fraction] 94 % DO [facility] 06-21-2023 13:55-0400 Systolic blood pressure 152 mm[Hg] DO [facility] 06-21-2023 13:52-0400 Body temperature 97.3 [degF] DO [facility] 06-21-2023 13:52-0400 Heart rate 72 /min DO [facility] 06-21-2023 13:52-0400 Respiratory rate 20 /min DO [facility] 06-21-2023 06:00-0400 Body weight 147.4 kg DO [facility] 06-19-2023 15:26-0400 Body height 182.88 cm DO [facility] 06-19-2023 02:16-0400 Diastolic blood pressure 77 mm[Hg] DO Reid Mendy Work Phone: [facility] 06-19-2023 02:16-0400 Heart rate 77 /min DO Reid Mendy Work Phone: [facility] 06-19-2023 02:16-0400 Inhaled oxygen flow rate 6 L/min DO Reid Mendy Work Phone: [facility] 06-19-2023 02:16-0400 Respiratory rate 20 /min DO Reid Mendy Work Phone: [facility] 06-19-2023 02:16-0400 SaO2% (BldA) [Mass fraction] 91 % DO Reid Mendy Work Phone: [facility] 06-19-2023 02:16-0400 Systolic blood pressure 170 mm[Hg] DO Reid Mendy Work Phone: [facility] 06-18-2023 21:43-0400 Body height 182.88 cm DO Reid Mendy Work Phone: [facility] 06-18-2023 21:43-0400 Body temperature 98.5 [degF] DO Reid Mendy Work Phone: [facility] 06-18-2023 21:43-0400 Body weight 140.61 kg DO Reid Mendy Work Phone: [facility] 06-15-2023 17:22-0400 [facility] Round[facility] 06-15-2023 17:22-0400 Promise to Return [facility] 06-15-2023 16:25-0400 Hour[employer] Rounding [facility] 06-15-2023 16:25-0400 Promise to Return [facility] 06-15-2023 16:20-0400 Heart rate 84 /min [facility] 06-15-2023 16:20-0400 Respiratory rate 20 /min [facility] 06-15-2023 16:07-0400 Heart rate 80 /min [facility] 06-15-2023 16:07-0400 Respiratory rate 20 /min [facility] 06-15-2023 16:07-0400 SaO2% (BldA) [Mass fraction] 93 % [facility] 06-15-2023 16:00-0400 Body temperature 98.42 [degF] [facility] 06-15-2023 16:00-0400 Diastolic blood pressure 79 mm[Hg] [facility] 06-15-2023 16:00-0400 Heart rate 88 /min [facility] 06-15-2023 16:00-0400 Systolic blood pressure 176 mm[Hg] [facility] 06-15-2023 15:25-0400 Hourly Rounding [facility] 06-15-2023 15:25-0400 Promise to Return [facility] 06-15-2023 12:02-0400 Heart rate 83 /min [facility] 06-15-2023 12:02-0400 Respiratory rate 20 /min [facility] 06-15-2023 12:02-0400 SaO2% (BldA) [Mass fraction] 92 % [facility] 06-15-2023 11:54-0400 SaO2% (BldA) [Mass fraction] 92 % [facility] 06-15-2023 10:15-0400 Diastolic blood pressure 87 mm[Hg] [facility] 06-15-2023 10:15-0400 Mean blood pressure 114 mm[Hg] [facility] 06-15-2023 10:15-0400 Systolic blood pressure 168 mm[Hg] [facility] 06-15-2023 10:15-0400 Body temperature 98.06 [degF] [facility] 06-15-2023 08:30-0400 gluc 172 mg/dL [facility] 06-15-2023 07:35-0400 Diastolic blood pressure 83 mm[Hg] [facility] 06-15-2023 07:35-0400 Mean blood pressure 112 mm[Hg] [facility] 06-15-2023 07:35-0400 Systolic blood pressure 168 mm[Hg] [facility] 06-15-2023 07:33-0400 Body temperature 98.06 [degF] [facility] 06-15-2023 00:39-0400 Blood Pressure Location [facility] 06-14-2023 20:00-0400 Body temperature 98.42 [degF] [facility] 06-14-2023 16:12-0400 Blood Pressure Location [facility] 06-14-2023 16:12-0400 Body temperature 97.7 [degF] [facility] 06-14-2023 16:12-0400 Mean blood pressure 123 mm[Hg] [facility] 06-14-2023 08:20-0400 Mean blood pressure 122 mm[Hg] [facility] 06-14-2023 08:19-0400 Body temperature 98.06 [degF] [facility] 06-14-2023 05:50-0400 FIO2 50 % [facility] 06-14-2023 00:50-0400 Mean blood pressure 108 mm[Hg] [facility] 06-13-2023 23:55-0400 FIO2 50 % [facility] 06-13-2023 20:00-0400 gluc 190 mg/dL Cindy PAGANGENESIS [facility] 06-13-2023 11:54-0400 FIO2 50 % Cindy PAGANGENESIS [facility] 06-13-2023 08:00-0400 Blood Pressure Location Cindy RICARDO [facility] 06-13-2023 08:00-0400 Mean blood pressure 104 mm[Hg] Cindy RICARDO [facility] 06-12-2023 16:38-0400 gluc 296 mg/dL Cindy RICARDO [facility] 06-11-2023 21:00-0400 Heart rate 73 /min [facility]-11-[facility]23 20:25-0400 Heart rate 75 /min [facility] 06-11-2023 19:30-0400 Respiratory rate 16 /min [facility] 06-11-2023 18:30-0400 Respiratory rate 14 /min [facility] 06-11-2023 14:22-0400 SaO2% (BldA) [Mass fraction] 90.8 % [facility] 05-22-2023 13:29-0400 Blood Pressure Location Migue STROUD [facility] 05-22-2023 13:29-0400 Diastolic blood pressure 74 mm[Hg] Migue STROUD [facility] 05-22-2023 13:29-0400 Heart rate 74 /min Migue STROUD [facility] 05-22-2023 13:29-0400 SaO2% (BldA) [Mass fraction] 87 % Migue STROUD [facility] 05-22-2023 13:29-0400 Systolic blood pressure 135 mm[Hg] Migue STROUD [facility] 05-08-2023 10:30-0400 Diastolic blood pressure 81 mm[Hg] Bashar Lauderdale [facility] 05-08-2023 10:30-0400 Mean blood pressure 113 mm[Hg] Bashar Lauderdale [facility] 05-08-2023 10:30-0400 Systolic blood pressure 176 mm[Hg] Bashar Lauderdale [facility] 05-08-2023 10:01-0400 Blood Pressure Location Bashar Lauderdale [facility] 05-08-2023 10:01-0400 Diastolic blood pressure 84 mm[Hg] Bashar Lauderdale [facility] 05-08-2023 10:01-0400 Heart rate 68 /min Bashar Lauderdale [facility] 05-08-2023 10:01-0400 SaO2% (BldA) [Mass fraction] 88 % Bashar Lauderdale [facility] 05-08-2023 10:01-0400 Systolic blood pressure 175 mm[Hg] Bashar Lauderdale [facility] 12-02-2022 11:12-0400 Diastolic blood pressure 86 mm[Hg] Migue KLINEWOOD [facility] 12-02-2022 11:12-0400 Mean blood pressure 105 mm[Hg] Migue MARLI [facility] 12-02-2022 11:12-0400 Systolic blood pressure 142 mm[Hg] Migue MARLI [facility] 12-02-2022 10:55-0400 Blood Pressure Location Migue MARLI [facility] 12-02-2022 10:55-0400 Diastolic blood pressure 82 mm[Hg] Migue KLINEWOOD [facility] 12-02-2022 10:55-0400 Heart rate 74 /min Migue KLINEWOOD [facility] 12-02-2022 10:55-0400 SaO2% (BldA) [Mass fraction] 92 % Migue KLINEWOOD [facility] 12-02-2022 10:55-0400 Systolic blood pressure 169 mm[Hg] Migue MARLI [facility] 09-13-2022 13:21-0500 Diastolic blood pressure 92 mm[Hg] Migue KLINEWOOD [facility] 09-13-2022 13:21-0500 Mean blood pressure 115 mm[Hg] Migue MARLI [facility] 09-13-2022 13:21-0500 Systolic blood pressure 160 mm[Hg] Migue MARLI [facility] 09-13-2022 13:16-0500 Blood Pressure Location Migue KLINEWOOD [facility] 09-13-2022 13:16-0500 Body temperature 97.7 [degF] Migue KLINEWOOD [facility] 09-13-2022 13:16-0500 Diastolic blood pressure 83 mm[Hg] Migue MARLI [facility] 09-13-2022 13:16-0500 Heart rate 78 /min Migue KLINEWOOD [facility] 09-13-2022 13:16-0500 SaO2% (BldA) [Mass fraction] 96 % Migue STROUD [facility] 09-13-2022 13:16-0500 Systolic blood pressure 193 mm[Hg] Migue STROUD [facility] 08-04-2022 17:12-0500 Diastolic blood pressure 88 mm[Hg] Mone Juan [facility] 08-04-2022 17:12-0500 Heart rate 76 /min Mone Juan [facility] 08-04-2022 17:12-0500 Mean blood pressure 102 mm[Hg] Mone Juan [facility] 08-04-2022 17:12-0500 Respiratory rate 18 /min Mone Juan [facility] 08-04-2022 17:12-0500 SaO2% (BldA) [Mass fraction] 100 % Mone Juan [facility] 08-04-2022 17:12-0500 Systolic blood pressure 130 mm[Hg] Mone Juan [facility] 08-04-2022 16:30-0500 Diastolic blood pressure 96 mm[Hg] Mone Juan [facility] 08-04-2022 16:30-0500 Heart rate 74 /min Mone Juan [facility] 08-04-2022 16:30-0500 Mean blood pressure 109 mm[Hg] Mone Juan [facility] 08-04-2022 16:30-0500 Respiratory rate 16 /min Mone Juan [facility] 08-04-2022 16:30-0500 SaO2% (BldA) [Mass fraction] 97 % Mone Juan [facility] 08-04-2022 16:30-0500 Systolic blood pressure 134 mm[Hg] Mone Martinez [facility] 08-04-2022 15:35-0500 Diastolic blood pressure 103 mm[Hg] Mone Martinez [facility] 08-04-2022 15:35-0500 Heart rate 73 /min Mone Martinez [facility] 08-04-2022 15:35-0500 Respiratory rate 16 /min Mone Martinez [facility] 08-04-2022 15:35-0500 SaO2% (BldA) [Mass fraction] 97 % Mone Martinez [facility] 08-04-2022 15:35-0500 Systolic blood pressure 138 mm[Hg] Mone Martinez [facility] 08-04-2022 13:08-0500 Body temperature 97.88 [degF] Mone Martinez [facility] 08-04-2022 13:08-0500 Heart rate 80 /min Mone Martinez [facility] 03-29-2022 13:04-0400 Blood Pressure Location Migue STROUD [facility] 03-29-2022 13:04-0400 Body temperature 96.98 [degF] Migue STROUD [facility] 03-29-2022 13:04-0400 Diastolic blood pressure 73 mm[Hg] Migue STROUD [facility] 03-29-2022 13:04-0400 Heart rate 72 /min Migue STROUD [facility] 03-29-2022 13:04-0400 SaO2% (BldA) [Mass fraction] 95 % Migue STROUD [facility] 03-29-2022 13:04-0400 Systolic blood pressure 132 mm[Hg] Migue STROUD [facility] 03-09-2022 00:59-0400 Body temperature 98.6 [degF] Jose Miguel Sylvester [facility] 03-08-2022 23:56-0400 Body temperature 100.58 [degF] Jose Miguel Sylvester [facility] 03-08-2022 23:56-0400 Diastolic blood pressure 74 mm[Hg] Jose Miguel Sylvester [facility] 03-08-2022 23:56-0400 Heart rate 95 /min Jose Miguel Sylvester [facility] 03-08-2022 23:56-0400 Mean blood pressure 98 mm[Hg] Jose Miguel Sylvester [facility] 03-08-2022 23:56-0400 SaO2% (BldA) [Mass fraction] 90 % Jose Miguel Sylvester [facility] 03-08-2022 23:56-0400 Systolic blood pressure 146 mm[Hg] Jose Miguel Sylvester [facility] 03-08-2022 22:56-0400 Body temperature 97.7 [degF] Jose Miguel Sylvester [facility] 03-08-2022 22:56-0400 Diastolic blood pressure 77 mm[Hg] Jose Miguel Sylvester [facility] 03-08-2022 22:56-0400 Heart rate 92 /min Jose Miguel Sylvester [facility] 03-08-2022 22:56-0400 Respiratory rate 15 /min Jose Miguel Sylvester [facility] 03-08-2022 22:56-0400 SaO2% (BldA) [Mass fraction] 94 % Jose Miguel Sylvester [facility] 03-08-2022 22:56-0400 Systolic blood pressure 132 mm[Hg] Jose Miguel Sylvester [facility] 01-11-2022 12:33-0400 Blood Pressure Location Migue STROUD [facility] 01-11-2022 12:33-0400 Body temperature 98.06 [degF] Migue STROUD [facility] 01-11-2022 12:33-0400 Diastolic blood pressure 82 mm[Hg] Migue STROUD [facility] 01-11-2022 12:33-0400 Heart rate 72 /min Migue STROUD [facility] 01-11-2022 12:33-0400 SaO2% (BldA) [Mass fraction] 96 % Migue STROUD [facility] 01-11-2022 12:33-0400 Systolic blood pressure 134 mm[Hg] Migue STROUD [facility] Encounters Encounter Date Encounter Type Care Provider Facility Start: 03-24-2025 End: 03-24-2025 Telephone encounter Mounika Brooke MD Work Phone: [facility] Comment on above: Care Coordination Start: [...] of insulin (HCC); Hyperosmolar hyperglycemic state (HHS) ([facility]); Muscle cramps; Long-term insulin use (HCC); Difficulty walking; Essential (primary) hypertension ; Morbid obesity ([facility]); BMI 38.0-38.9,adult Start: 03-13-2025 End: 03-13-2025 ambulatory MOUNIKA BROOKE Not Available Start: 03-05-2025 End: 03-07-2025 Evaluation and management of inpatient Jigna Suarez Facility:[facility] Start: 03-05-2025 Emergency department patient visit Maria Luisa Steiner Facility:[facility] Start: 02-05-2025 End: 02-05-2025 Telephone encounter Aggie [...] End: 01-22-2025 Refill Brittani Marcano MA [facility] Comment on above: Anxiousness (Primary Dx) Start: 12-26-2024 End: 12-26-2024 ambulatory Maria Luisa Steiner Facility:[facility] Start: 12-26-2024 End: 12-26-2024 Office outpatient visit 15 minutes Mounika Brooke MD Work Phone: [facility] Comment on above: Muscle cramps (Prima ry Dx); Varicose veins of both lower extremities, unspecified whether complicated; Type 2 diabetes mellitus with hyperglycemia, with long-term current use of insulin (CMS/HCC); Essential (primary) hypertension (CMS/HCC) Start: 12-25-2024 End: 12-25-2024 Office outpatient visit 25 minutes Kayla Sweeney MD Work Phone: [facility] Comment on above: Type 2 diabetes perla itus with hyperglycemia, with long-term current use of insulin (CMS/HCC) (Primary Dx); Insulin long-term use (CMS/HCC); Vitamin D deficiency; Encounter for dietary consultation; Hyperlipemia, mixed (CMS/HCC); Primary hypertension (CMS/HCC) Start: 12-24-2024 End: 12-24-2024 Bamboo flowsheet Kayla Sweeney MD Work Phone: [facility] Start: 12-24-2024 End: 12-24-2024 Bamboo flowsheet Kayla Sweeney MD Work Phone: [facility] Start: 12-22-2024 End: 12-22-2024 Emergency department patient visit Dwight Shaffer Facility:[facility] Start: 12-20-2024 End: 12-21-2024 ambulatory Toni Gutierrez Facility:[facility] Start: 12-20-2024 Emergency department patient visit Nicole Myers Facility:[facility] Start: 12-20-2024 End: 12-21-2024 Observation Toni Gutierrez III [facility] Start: 12-19-2024 End: 12-19-2024 Emergency department patient visit Corky Luo Facility:[facility] Start: 12-18-2024 End: 12-18-2024 Bamboo flowsheet Mone [...] 12-02-2024 Emergency department patient visit Nicole Myers [facility] Start: 09-04-2024 End: 09-04-2024 ambulatory Taz THOMAS Facility:[facility] Start: 09-04-2024 End: 09-04-2024 Patient encounter procedure Taz THOMAS [facility] Start: 09-04-2024 End: 09-04-2024 Office outpatient visit 25 minutes Kayla Sweeney MD Work Phone: [facility] Comment on above: Type 2 diabetes perla itus with hyperglycemia, with long-term current use of insulin (CMS/HCC) (Primary Dx); Insulin long-term use ([facility]); Vitamin D deficiency; Encounter for dietary consultation; Hyperlipemia, mixed (CMS/[facility]); Primary hypertension ([facility]/HCC) Start: 09-04-2024 End: 09-04-2024 Bamboo flowsheet Kayla Sweeney MD Work Phone: [facility] Start: 09-04-2024 End: 09-04-2024 Bamboo flowsheet Kayla Sweeney MD Work Phone: [facility] Start: 09-04-2024 End: 09-04-2024 ambulatory KAYLA SWEENEY Not Available Start: 08-06-2024 End: 08-06-2024 Telephone encounter Mounika Brooke MD Work Phone: [facility] Comment on above: Referral Start: 07-22-2024 End: 07-22-2024 ambulatory PERLITA MEEKS Not Available Start: 07-22-2024 End: 07-22-2024 Follow-up encounter Perlita Meeks MD Work Phone: [facility] Comment on above: Follow-up Start: 07-22-2024 End: 07-22-2024 Bamboo flowsheet Perlita Meeks MD Work Phone: [facility] Start: 07-22-2024 End: 07-22-2024 Bamboo flowskavon Meeks MD Work Phone: [facility] Start: 07-15-2024 End: 07-15-2024 ambulatory KAYLA SWEENEY Not Available Start: 07-15-2024 End: 07-15-2024 Office outpatient visit 25 minutes Kayla Sweeney MD Work Phone: [facility] Comment on above: Type 2 diabetes [...] 07-09-2024 Emergency department patient visit Nicole Myers [facility] Start: 07-03-2024 End: 07-03-2024 Bamboo flowsheet Mounika [...] (CMS/HCC); Morbid obesity (CMS/HCC); BMI 40.0-44.9, adult ([facility]/HCC) Start: 07-03-2024 End: 07-03-2024 ambulatory MOUNIKA BROOKE Not Available Start: 06-24-2024 End: 06-24-2024 Telephone encounter Jennifer ROWAN Work Phone: [facility] Start: 06-23-2024 End: 06-23-2024 Emergency department patient visit Alejandro Reddygris [facility] Start: 06-21-2024 End: 06-21-2024 ambulatory Jennifer SHORT Facility:[facility] Start: 06-21-2024 End: 06-21-2024 Patient encounter procedure Jennifer SHORT [facility] Start: 06-21-2024 End: 06-21-2024 Bamboo flowsheet Jennifer [...] complication associated with type 2 diabetes mellitus ([facility]); TC (obstructive sleep apnea); Restless leg syndrome; Acute on chronic respiratory failure with hypoxia and hypercapnia ([facility]); Obesity hypoventilation syndrome ([facility]); Hypertension, unspecified type ([facility]); Varicose veins of both lower extremities, unspecified whether complicated; Gastroesophageal reflux disease, unspecified whether esophagitis present; 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 ([facility]); Mixed hyperlipidemia ([facility]); Long-term insulin use ([facility]) Start: 04-29-2024 End: 04-30-2024 Telephone encounter Mounika Brooke MD Work Phone: [facility] Comment on above: Care Coordination Start: 04-29-2024 [...] 1 diabetes mellitus, unspecified proliferative retinopathy type ([facility]/HCC) (Primary Dx); 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 1 diabetes mellitus ([facility]) Start: 04-15-2024 End: 04-15-2024 ambulatory PERLITA MEEKS Not Available Start: 04-15-2024 End: 04-15-2024 Bamboo flowsheet Perlita Meeks MD Work Phone: [facility] Start: 04-15-2024 End: 04-15-2024 Quebojeremy janeheet Perlita Meeks MD Work Phone: [facility] Start: 03-11-2024 End: 03-11-2024 ambulatory Taz THOMAS Facility:[facility] Start: 03-11-2024 End: 03-11-2024 Patient encounter procedure Taz THOMAS [facility] Start: 03-06-2024 End: 03-06-2024 ambulatory Sukh R Dolce Facility:[facility] Start: 03-06-2024 End: 03-06-2024 Patient encounter procedure Sukh R Dolce [facility] Start: 02-28-2024 End: 02-28-2024 ambulatory Sukh R Dolce Facility:[facility] Start: 02-28-2024 End: 02-28-2024 Patient encounter procedure Sukh R Dolce [facility] Start: 02-28-2024 End: 02-28-2024 ambulatory Taz THOMAS Facility:[facility] Start: 02-28-2024 End: 02-28-2024 Patient encounter procedure Taz THOMAS [facility] Start: 02-15-2024 End: 02-15-2024 ambulatory Shannon J Galea Facility:[facility] Start: 02-15-2024 End: 02-15-2024 Patient encounter procedure Shannon J Galea [facility] Start: 02-14-2024 End: 02-14-2024 ambulatory Taz THOMAS Facility:[facility] Start: 02-14-2024 End: 02-14-2024 Patient encounter procedure Taz THOMAS [facility] Start: 02-09-2024 End: 02-09-2024 ambulatory Gisselle X Orzech Facility:[facility] Start: 02-09-2024 End: 02-09-2024 Patient encounter procedure Gisselle X Orzech [facility] Start: 02-05-2024 End: 02-05-2024 ambulatory Taz THOMAS Facility:[facility] Start: 02-05-2024 End: 02-05-2024 Patient encounter procedure Taz THOMAS [facility] Start: 01-31-2024 End: 01-31-2024 ambulatory Sukh Zarina Harrington Facility:[facility] Start: 01-31-2024 End: 01-31-2024 Patient encounter procedure Sukhnii Harrington [facility] Start: 01-23-2024 End: 01-23-2024 ambulatory Smooth Annbert Facility:[facility] Start: 01-23-2024 End: 01-23-2024 Patient encounter procedure Smooth Annbert [facility] Start: 01-17-2024 End: 01-18-2024 Pre-admission assessment Smooth Harrington [facility] Start: 01-15-2024 End: 01-15-2024 Emergency department patient visit Nicole Myers [facility] Start: 01-12-2024 End: 01-12-2024 ambulatory LIBERTY PATRICK Facility:[facility] Start: 01-12-2024 End: 01-12-2024 Patient encounter procedure LIBERTY PATRICK [facility] Start: 01-02-2024 End: 01-02-2024 ambulatory Smooth Harrington Facility:[facility] Start: 01-02-2024 End: 01-02-2024 Patient encounter procedure Smooth Harrington [facility] Start: 12-26-2023 End: 12-26-2023 ambulatory Smooth Harrington Facility:[facility] Start: 12-26-2023 End: 12-26-2023 Patient encounter procedure Smooth Harrington [facility] Start: 12-19-2023 End: 12-19-2023 ambulatory Smooth Harrington Facility:[facility] Start: 12-19-2023 End: 12-19-2023 Patient encounter procedure Smooth Harrington [facility] Start: 12-15-2023 End: 12-15-2023 ambulatory Taz THOMAS Facility:[facility] Start: 12-15-2023 End: 12-15-2023 Patient encounter procedure Taz THOMAS [facility] Start: 12-12-2023 End: 12-12-2023 ambulatory Smooth Harrington Facility:[facility] Start: 12-12-2023 End: 12-12-2023 Patient encounter procedure Smooth Harrington [facility] Start: 11-23-2023 Patient encounter procedure Esau Truong APRN.[employer] WORKER Work Phone: [facility] Start: 11-23-2023 Progress Note Esau Truong APRN.[employer]STRU[employer] WORKER Work Phone: [facility] Start: 11-20-2023 End: 11-20-2023 Patient encounter procedure Taz THOMAS [facility] Start: 11-20-2023 Progress Note Alvaro Herrera Work Phone: [place] Start: 11-20-2023 End: 11-20-2023 ambulatory Taz THOMAS Facility:[facility] Start: 11-12-2023 Non-patient / Non-visit MD Jermaine Brooke Work Phone: [facility] Nephrology Work Phone: Start: 11-11-2023 Non-patient / Non-visit MD Jermaine Brooke Work Phone: [facility] Med OutPt Work Phone: Start: 11-11-2023 End: 11-17-2023 Evaluation and management of inpatient MD Mounika Brooke Work Phone: [facility] [place] [facility] Work Phone: Start: 11-11-2023 End: 11-11-2023 Emergency department patient visit Alejandro Silva [facility] Start: 11-01-2023 End: 11-01-2023 ambulatory Taz THOMAS Facility:[facility] Start: 11-01-2023 End: 11-01-2023 Patient encounter procedure Taz THOMAS [facility] Start: 10-31-2023 Telephone encounter Mounika christianson MD Work Phone: [facility] Comment on above: Follow Up Phone Call (Post Discharge F/U - attempt made. No answer.) Start: 10-30-2023 End: 10-30-2023 Emergency department patient visit Staci Beck [facility] Start: 10-23-2023 End: 10-28-2023 Evaluation and management of inpatient SHASHANii CHUADAD Facility:[facility] Start: 10-18-2023 End: 10-18-2023 ambulatory Taz THOMAS Facility:[facility] Start: 10-18-2023 End: 10-18-2023 Patient encounter procedure Taz Abraham MARTHA [facility] Start: 10-15-2023 End: 10-15-2023 Emergency department patient visit Mone Martinez [facility] Start: 10-13-2023 End: 10-13-2023 ambulatory MD Mounika Brooke Work Phone: [facility] Work Phone: Start: 10-13-2023 End: 10-13-2023 Patient encounter procedure MD Mounika Brooke Work Phone: [facility] [place] Work Phone: Start: 10-09-2023 Non-patient / Non-visit MD Jermaine Brooke Work Phone: [facility] Work Phone: Start: 10-08-2023 Non-patient / Non-visit MD Jermaine Brooke Work Phone: [facility] Work Phone: Start: 10-07-2023 Non-patient / Non-visit MD Jermaine Brooke Work Phone: [facility]ician [facility] Med OutPt Work Phone: Start: 10-06-2023 End: 10-12-2023 Evaluation and management of inpatient MD Mounika Brooke Work Phone: [facility] [place] Med Surg Work Phone: Start: 10-05-2023 End: 10-05-2023 ambulatory Gisselle X Orzech Facility:[facility] Start: 10-05-2023 End: 10-05-2023 Patient encounter procedure Gisselle X Orzech [facility] Start: 10-04-2023 End: 10-04-2023 ambulatory Sukh Harrington Facility:[facility] Start: 10-04-2023 End: 10-04-2023 Patient encounter procedure Sukh Harrington [facility] Start: 10-03-2023 ambulatory Smooth Harrington Facility:[facility] [place] Start: 10-02-2023 End: 12-31-2023 ambulatory Nicole Thompson Facility:[facility] Start: 10-02-2023 End: 12-31-2023 Recurring Nicole Thompson [facility] Start: 09-26-2023 End: 09-26-2023 ambulatory Gisselle Myah Javedvaoseas Facility:[facility] [place] Start: 09-25-2023 Sandy christiansen MD Work Phone: [facility] Start: 09-25-2023 Sandy christiansen MD Work Phone: [facility] Start: 09-24-2023 End: 09-24-2023 Emergency department patient visit Jose Miguel Phan [facility] Start: 09-21-2023 Chart abstracting Mounika christianson MD Work Phone: [facility] Start: 09-18-2023 End: 09-12-2023 Pre-admission assessment Smooth Harrington [facility] Start: 09-17-2023 End: 09-17-2023 Emergency department patient visit Alejandro Vossfili [facility] Start: 09-12-2023 End: 09-16-2023 Evaluation and management of inpatient XXXX [facility] Cardio Facility:[facility] Start: 09-05-2023 End: 09-05-2023 ambulatory Smooth Harrington Facility:[facility] Start: 09-05-2023 End: 09-05-2023 Patient encounter procedure Smooth Harrington [facility] Start: 08-30-2023 End: 08-30-2023 Patient encounter procedure Sukh Harrington [facility] Start: 08-24-2023 End: 08-24-2023 Patient encounter procedure Migue STROUD [facility] Start: 08-16-2023 End: 08-16-2023 Patient encounter procedure Sukh Harrington [facility] Start: 08-06-2023 End: 08-06-2023 Emergency department patient visit Alejandro Linn Shira [facility] Start: 08-02-2023 End: 08-02-2023 Patient encounter procedure Sukh Harrington [facility] Start: 07-19-2023 End: 07-19-2023 Patient encounter procedure Sukh Harrington [facility] Start: 06-28-2023 End: 06-28-2023 Patient encounter procedure Sukh Harrington [facility] Start: 06-26-2023 End: 06-26-2023 Patient encounter procedure Migue STROUD [facility] Start: 06-19-2023 End: 06-21-2023 Evaluation and management of inpatient DO Reidlinn LoganMendy Work Phone: [facility] [place] Med Surg Work Phone: Start: 06-11-2023 End: 06-15-2023 Evaluation and management of inpatient Cindy RICARDO [facility] Start: 06-07-2023 End: 06-07-2023 Patient encounter procedure Sukh Harrington [facility] Start: 05-24-2023 End: 05-24-2023 Off-Site Migue STROUD [facility] Start: 05-22-2023 End: 05-22-2023 Lab Drop off Migue STROUD [facility] Start: 05-22-2023 End: 05-22-2023 Patient encounter procedure Migue STROUD [facility] Start: 05-08-2023 End: 05-08-2023 Patient encounter procedure Bashar X Lauderdale [facility] Start: 05-02-2023 End: 05-03-2023 Pre-admission assessment Sukh Harrington [facility] Start: 05-01-2023 End: 05-01-2023 Patient encounter procedure Sukh Harrington [facility] Start: 04-26-2023 End: 04-26-2023 Patient encounter procedure Sukh Harrington [facility] Start: 04-25-2023 End: 04-25-2023 Patient encounter procedure Smooth Elizondo Juany [facility] Start: 04-19-2023 End: 04-19-2023 Patient encounter procedure Sukh Harrington [facility] Start: 04-03-2023 End: 04-03-2023 Patient encounter procedure Migue STROUD [facility] Start: 12-26-2022 End: 12-26-2022 Patient encounter procedure Migue STROUD [facility] Start: 12-02-2022 End: 12-02-2022 Patient encounter procedure Migue STROUD [facility] Start: 09-21-2022 End: 10-18-2022 Off-Site Migue STROUD [facility] Start: 09-13-2022 End: 09-13-2022 Patient encounter procedure Migue STROUD [facility] Start: 08-21-2022 End: 09-20-2022 Off-Site Migue STROUD [facility] Start: 08-04-2022 End: 08-04-2022 Emergency department patient visit Mone Martinez [facility] Start: 03-29-2022 End: 03-29-2022 Patient encounter procedure Migue STROUD [facility] Start: 03-21-2022 End: 04-20-2022 Off-Site Migue STROUD [facility] Start: 03-08-2022 End: 03-09-2022 Emergency department patient visit Jose Miguel Phan [facility] Start: 01-11-2022 End: 01-11-2022 Patient encounter procedure Migue STROUD [facility] Start: 12-28-2021 End: 12-28-2021 Off-Site Migue STROUD [facility] Procedures Date Procedure Procedure Detail Performing Clinician [...] use Kayla Sweeney MD Work Phone: Start: 06-21-2024 Hemoglobin [...] stravix skin graft to left foot ulcer Miuge STROUD Start: 04-13-2015 left foot TMA with [...] of foot Acquired absence of left foot ([facility]) Mounika Brooke MD Work Phone: [...] Office Visit [facility] [address] [place] [id number] Mounika Brooke MD [address] [place] [address] Arrived [facility] Comment on above: Arrived Start: 03-11-2025 Urine screening for protein Diabetes: Urine Protein Screening [facility] Start: 02-05-2025 End: 02-05-2025 Patient encounter procedure 02/05/2025 12:20 PM EDT Office Visit [facility] [address] [place] [phone] Mounika Brooke MD [address] [place] [address] [facility] Start: 12-31-2024 End: 12-31-2024 Patient encounter procedure 12/31/2024 2:20 PM EDT Office Visit [facility] [address] [place] [address] Kayla Sweeney MD [address] [place] [address] [facility] Start: 12-26-2024 End: 12-26-2024 Patient encounter procedure 12/26/2024 3:20 PM EDT Office Visit [facility] [address] [place] [address] Mounika Brooke MD [address] [place] [address] [facility] Start: 12-26-2024 End: 12-26-2025 CBC W Auto Differential panel - Blood CBC and differential Lab Routine Muscle cramps Expected: 12/26/2024 (Approximate), Expires: 12/26/2025 [facility] Work Phone: Comment on above: Expected: 12/26/2024 (Approximate), Expires: 12/26/2025 Start: 12-26-2024 End: 12-26-2025 Comprehensive metabolic 2000 panel - Serum or Plasma Comprehensive metabolic panel Lab Routine Muscle cramps Expected: 12/26/2024 (Approximate), Expires: 12/26/2025 [facility] Comment on above: Expected: 12/26/2024 (Approximate), Expires: 12/26/2025 Start: 12-26-2024 End: 12-26-2025 Magnesium [Mass/volume] in Serum or Plasma Magnesium Lab Routine Muscle cramps Expected: 12/26/2024 (Approximate), Expires: 12/26/2025 [facility] Comment on above: Expected: 12/26/2024 (Approximate), Expires: 12/26/2025 Start: 12-04-2024 End: 12-04-2024 Patient encounter procedure 12/04/2024 2:40 PM EDT Office Visit [facility] [address] [place] [phone] Kayla Sweeney MD [address] [place] [address] [facility] Start: 12-03-2024 Hemoglobin A1c measurement Diabetes: Hemoglobin A1C [facility] Start: 11-21-2024 End: 11-21-2024 Patient encounter procedure 11/21/2024 1:30 PM EDT Office Visit [facility] [address] [place] [phone] Perlita Meeks MD [address] [place] [address] [facility] Start: 10-27-2024 Complete blood count Hemoglobin/Martinez tocrit [facility] Start: 10-27-2024 Creatinine measurement Serum Creatin ine [facility] Start: 10-24-2024 Hepatitis B surface antibody level LDL Cholesterol [facility] Start: 09-21-2024 Hemoglobin A1c measurement Diabetes: Hemoglobin A1C [facility] Start: 09-04-2024 End: 09-04-2024 Patient encounter procedure [facility] Comment on above: Type 2 diabetes perla itus with hyperglycemia, with long-term current use of insulin ([facility] Start: 09-04-2024 End: 09-04-2025 25-hydroxyvitamin D3 [Mass/volume] in Serum or Plasma Vitamin D 25 hydroxy Total Lab Routine Type 2 diabetes mellitus with hyperglycemia, with long-term current use of insulin ([facility]) Expected: 09/04/2024 (Approximate), Expires: 09/04/2025 [facility] Comment on above: Expected: 09/04/2024 (Approximate), Expires: 09/04/2025 Start: 09-04-2024 End: 09-04-2025 C-peptide C-peptide Lab Routine Type 2 diabetes mellitus with hyperglycemia, with long-term current use of insulin ([facility]) Expected: 09/04/2024 (Approximate), Expires: 09/04/2025 [facility] Work Phone: Comment on above: Expected: 09/04/2024 (Approximate), Expires: 09/04/2025 Start: 09-04-2024 End: 09-04-2025 Lipid 1996 panel - Serum or Plasma Lipid panel Lab Routine Type 2 diabetes mellitus with hyperglycemia, with long-term current use of insulin ([facility]) Expected: 09/04/2024 (Approximate), Expires: 09/04/2025 [facility] Comment on above: Expected: 09/04/2024 (Approximate), Expires: 09/04/2025 Start: 09-04-2024 End: 09-04-2025 Microalbumin/Creatinine panel in random Urine Microalbumin / creatinine urine ratio Lab Routine Type 2 diabetes mellitus with hyperglycemia, with long-term current use of insulin ([facility]) Expected: 09/04/2024 (Approximate), Expires: 09/04/2025 [facility] Comment on above: Expected: 09/04/2024 (Approximate), Expires: 09/04/2025 Start: 09-04-2024 End: 09-04-2025 Renal function panel Renal function panel Lab Routine Type 2 diabetes mellitus with hyperglycemia, with long-term current use of insulin ([facility]) Expected: 09/04/2024 (Approximate), Expires: 09/04/2025 [facility] Comment on above: Expected: 09/04/2024 (Approximate), Expires: 09/04/2025 Start: 08-09-2024 Urine screening for protein Diabetes: Urine Protein Screening [facility] Start: 07-22-2024 End: 07-22-2024 Clinical Support 07/22/2024 2:15 PM EST Clinical Support [facility] [address] [place] [phone] Perlita Meeks MD [address] [place] [address] [facility] Start: 07-15-2024 End: 07-15-2024 Chart abstracting 07/15/2024 Abstract [facility] [address] [place] [phone] Kayla Sweeney MD [address] [place] [address] [facility] Start: 07-15-2024 End: 07-15-2024 Patient encounter procedure 07/15/2024 1:40 PM EST Office Visit [facility] [address] [place] [phone] Kayla Sweeney MD [address] [place] [address] [facility] Start: 07-11-2024 End: 07-11-2024 Clinical Support [facility] Comment on above: Arrived Start: 06-27-2024 End: 06-27-2024 Clinical Support 06/27/2024 2:15 PM EST Clinical Support [facility] [address] [place] [phone] Perlita Meeks MD [address] [place] [address] [facility] Start: 06-21-2024 End: 06-21-2025 XR Chest 2 Views XR chest 2 views Imaging Routine Chronic cough Chest wall pain Expected: 06/21/2024, Expires: 06/21/2025 [facility] Work Phone: Comment on above: Expected: 06/21/2024 , Expires: 06/21/2025 Start: 06-21-2024 End: 06-21-2024 Patient encounter procedure 06/21/2024 1:30 PM EDT Office Visit [facility] [address] [place] [phone] Jennifer Short PA [address] [place] [address] Arrived [facility] Comment on above: Arrived Start: 05-23-2024 End: 05-23-2024 Clinical Support 05/23/2024 10:15 AM EDT Clinical Support [facility] [address] [place] [phone] Perlita Meeks MD [address] [place] [address] [facility] Start: 05-22-2024 End: 05-22-2024 Clinical Support 05/22/2024 2:00 PM EDT Clinical Support [facility] [address] [place] [phone] Perlita Meeks MD [address] [place] [address] Arrived [facility] Comment on above: Arrived Start: 04-29-2024 End: 04-29-2024 Patient encounter procedure 04/29/2024 2:00 PM EDT Office Visit [facility] [address] [place] [phone] Mounika Brooke MD [address] [place] [address] Arrived [facility] Comment on above: Arrived Start: 04-23-2024 End: 04-23-2024 Clinical Support 04/23/2024 10:45 AM EDT Clinical Support [facility] [address] [place] [phone] Perlita Meeks MD [address] [place] [address] Arrived [facility] Comment on above: Arrived Start: 04-21-2024 Influenza [facility] Start: 04-15-2024 End: 04-15-2024 Patient encounter procedure 04/15/2024 2:30 PM EDT Office Visit [facility] [address] [place] [phone] Perlita Meeks MD [address] [place] [address] Arrived [facility] Comment on above: Arrived Start: 01-24-2024 Hemoglobin A1c measurement [facility] Start: 11-17-2023 [facility] Start: 11-11-2023 Hospital admission [facility] Start: 11-11-2023 [facility] Start: 11-11-2023 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 [facility] Start: 10-12-2023 [facility] Start: 10-08-2023 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 [facility] Start: 10-07-2023 Hospital admission [facility] Start: 10-07-2023 [facility] Start: 10-06-2023 Plain chest X-ray XR chest 1V portab [facility] Start: 10-06-2023 XR Chest Single view [facility] Start: 10-06-2023 Bacteria identified in Blood by Culture [facility] Start: 09-25-2023 End: 09-25-2023 Patient encounter procedure [facility] Comment on above: Arrived Start: 08-21-2023 Behavioral Health Screening Behavioral Health Screening [facility] Start: 08-21-2023 Depression Assessment Depression Ass essment [facility] Start: 06-23-2023 Blood chemistry [facility] Start: 06-23-2023 [facility] Start: 06-22-2023 Blood chemistry [facility] Start: 06-22-2023 [facility] Start: 06-21-2023 Blood chemistry [facility] Start: 06-21-2023 End: 06-21-2023 [facility] Start: 06-20-2023 Consultation [facility] Start: 06-20-2023 Blood chemistry [facility] Start: 06-20-2023 [facility] Start: 06-19-2023 Administration of prophylactic treatment [facility] Start: 06-19-2023 Blood chemistry [facility] Start: 06-19-2023 [facility] Start: 06-19-2023 Hospital admission [facility] Start: 06-19-2023 [facility] Start: 06-18-2023 Plain chest X-ray XR chest 1V portab le [facility] Start: 06-18-2023 XR Chest Single view [facility] Start: 04-21-2023 Covid-19 Vaccine ( season) Covid-19 Vaccine ( season) [facility] Start: 08-07-2019 Pneumococcal vaccination Pneum ococcal Vaccine (2 of 2 - PCV) [facility] Start: 08-07-2019 Pneumococcal Vaccine : 65+ Years (2 of 2 - PCV) Pneumococcal Vaccine: 65+ Years (2 of 2 - PCV) [facility] Start: 2019 RSV Vaccine (1 - 1-d ose 60+ series) RSV Vaccine (1 - 1-dose 60+ series) [facility] Start: 2014 Prostate specific antigen measurement Prostate Cancer Screening Discussion [facility] Start: 2009 Shingrix Vaccine (1 of 2) Shingrix Vaccine (1 of 2) [facility] Start: 01-08-2004 Screening for malign ant neoplasm of colon [facility] Start: 1978 Urine microalbumin profile DTaP,Tdap,Td Vaccine (1 - Tdap) [facility] Start: 1977 Annual PCP Team Humanities [employer] Languages Professor loida Disease Visit Annual PCP Team Chronic Disease Visit [facility] Start: 1977 BP Controlled (<130/80) BP Con trolled (<130/80) [facility] Start: 1977 Hepatitis C screening Hepatitis C Sc carlos albertoning [facility] Start: 1977 HIV screening HIV Screening [facility] Start: 1969 Diabetic foot examination Diabetic Foot Exam [facility] Start: 1969 Glaucoma screening [facility] Start: 1969 Hepatitis B screening Urine Albumin:Creatinine Ratio [facility] Start: 1959 Hemoglobin A1c measurement Diabetes: Hemoglobin A1C [facility] Start: 1959 Medicare Annual Well ness (AWV) Medicare Annual Wellness (AWV) [facility] Start: 1959 Screening for malign ant neoplasm of colon [facility] Anion gap measurement [facility] Basophils [#/volume] in Blood by Automated count [facility] Basophils/100 leukoc ytes in Blood by Automated count [facility] Eosinophils [#/volum e] in Blood [facility] Eosinophils/100 leukocytes in Blood by Automated count [facility] Erythrocyte distribu tion width [Ratio] by Automated count [facility] Erythrocytes [#/volu me] in Blood [facility] Hematocrit [Volume Fraction] of Blood [facility] Hemoglobin [Mass/vol ume] in Blood [facility] Leukocytes [#/volume ] corrected for nucleated erythrocytes in Blood by Automated coun [facility] Leukocytes [#/volume ] in Blood [facility] Lymphocytes [#/volum e] in Blood by Automated count [facility] Lymphocytes/100 leukocytes in Blood by Automated count [facility] MCH [Entitic mass] b y Automated count [facility] MCHC [Mass/volume] b y Automated count [facility] MCV [Entitic volume] by Automated count [facility] Monocytes [#/volume] in Blood by Automated count [facility] Monocytes/100 leukoc ytes in Blood by Automated count [facility] Neutrophils [#/volum e] in Blood by Automated count [facility] Neutrophils/100 leukocytes in Blood by Automated count [facility] Nucleated erythrocyt es [Presence] in Blood by Automated count [facility] Patient Education [facility] Work Phone: Patient referral [facility] Work Phone: Platelet mean volume [Entitic volume] in Blood by Automated count [facility] Platelets [#/volume] in Blood [facility] Immunizations Immunization Date Immunization Notes Care Provider Fa cility 12-04-2024 Pneumococcal Conjuga te PCV 20 Mounika Brooke MD Work Phone: [facility] 12-04-2024 Seasonal, trivalent, recombinant, injectable influenza vaccine, preservative free Mounika Brooke MD Work Phone: [facility] 12-04-2024 influenza virus vacc ine, unspecified formulation Mounika Brooke MD Work Phone: [facility] 11-24-2023 tuberculin skin test ; purified protein derivative solution, intradermal Mounika Brooke MD Work Phone: [facility] 11-17-2023 tuberculin skin test ; purified protein derivative solution, intradermal Mounika Brooke MD Work Phone: [facility] 05-22-2023 influenza, injectabl e, quadrivalent, preservative free Migue STROUD [facility] 05-22-2023 influenza virus vacc ine, unspecified formulation Perlita Meeks MD Work Phone: [facility] 06-17-2022 COVID-19, mRNA, LNP- S, bivalent booster, PF, 30 mcg/0.3 mL dose Mone Martinez [facility] 06-17-2022 influenza, injectabl e, quadrivalent, preservative free Mone Martinez [facility] 06-17-2022 SARS-CoV-2, Unspecified Zahra Brooke MD Work Phone: [facility] 07-27-2021 COVID-19, mRNA, LNP- S, PF, 100 mcg or 50 mcg dose Migue STROUD [facility] 07-20-2021 influenza, injectabl e, quadrivalent, preservative free Migue STROUD [facility] 12-03-2020 SARS-CoV-2 (COVID-19 ) mRNA-1273 vaccine Migue STROUD [facility] 11-02-2020 SARS-CoV-2 (COVID-19 ) mRNA-1273 vaccine Migue STROUD [facility] 06-04-2019 influenza, injectabl e, quadrivalent, contains preservative Migue STROUD [facility] 08-07-2018 influenza virus vacc ine, unspecified formulation Jose Miguel Sylvester [facility] 08-07-2018 influenza, injectabl e, quadrivalent, contains preservative Mounika Brooke MD Work Phone: [facility] 08-07-2018 pneumococcal polysaccharide vaccine, 23 valent Miguecora STROUD [facility] 11-24-2015 pneumococcal polysaccharide vaccine, 23 valent Jose Miguel Tomlinner [facility] Payers Date Payer Category Payer Self-pay [id number] 2024 Medicare (Managed Care) 1.2. [id number] 2024 Private Health Insurance [id number] 2023 Medicare [id number] 2023 Unknown [employer] [id number] 2023-Present [address] [place] [id number] 2023 Medicare [id number] 2023 Medicaid [id number] 2023 Medicaid [id number] 2022 Medicare [id number]. 1.13.159.2.7 .[id number] 1959 Unknown [id number] 2.16.840.1.965668.3.579.2.7 1959 Unknown [id number] 2.16.840.1.059673.3.579.2.7 1959 Unknown [id number] 2.16.840.1.703065.3.579.2.7 1959 Unknown [id number] 2.16.840.1.019212.3.579.2.7 1959 Unknown [id number] 2.16.840.1.973584.3.579.2.7 1959 Unknown [id number] 2.16.840.1.301191.3.579.2.7 1959 Unknown [id number] 2.16.840.1.512281.3.579.2.7 1959 Unknown [id number] 2.16.840.1.520782.3.579.2.7 1959 Unknown [id number] 2.16.840.1.015823.3.579.2.7 1959 Unknown [id number] 2.16.840.1.908652.3.579.2.7 1959 Unknown [id number] 2.16.840.1.508521.3.579.2.7 1959 Unknown [id number] 2.16.840.1.149739.3.579.2.7 1959 Unknown [id number] 2.16.840.1.364253.3.579.2.7 1959 Unknown [id number] 2.16.840.1.410633.3.579.2.7 1959 Unknown [id number] 2.16.840.1.025039.3.579.2.7 1959 Unknown [id number] 2.16.840.1.886390.3.579.2.7 1959 Unknown [id number] 2.16.840.1.526492.3.579.2.7 1959 Unknown [id number] 2.16.840.1.175793.3.579.2.7 1959 Unknown [id number] 2.16.840.1.184411.3.579.2.7 1959 Unknown [id number] 2.16.840.1.635479.3.579.2.7 1959 Unknown [id number] 2.16.840.1.865633.3.579.2.7 1959 Unknown [id number] 2.16.840.1.826349.3.579.2.7 1959 Unknown [id number] 2.16.840.1.962553.3.579.2.7 1959 Unknown [id number] 2.16.840.1.730734.3.579.2.7 1959 Unknown [id number] 2.16.840.1.049148.3.579.2.7 1959 Unknown [id number] 2.16.840.1.715921.3.579.2.7 1959 Unknown [id number] 2.16.840.1.346853.3.579.2.7 1959 Unknown [id number] 2.16.840.1.903820.3.579.2.7 1959 Unknown [id number] 2.16.840.1.240883.3.579.2.7 1959 Unknown [id number] 2.16.840.1.981006.3.579.2.7 1959 Unknown [id number] 2.16.840.1.384043.3.579.2.7 1959 Unknown [id number] 2.16.840.1.996963.3.579.2.7 1959 Unknown [id number] 2.16.840.1.173459.3.579.2.7 1959 Unknown [id number] 2.16.840.1.530853.3.579.2.7 1959 Unknown [id number] 2.16.840.1.037021.3.579.2.7 1959 Unknown [id number] 2.16.840.1.405886.3.579.2.7 1959 Unknown [id number] 2.16.840.1.201007.3.579.2.7 1959 Unknown [id number] 2.16.840.1.010325.3.579.2.7 1959 Unknown [id number] 2.16.840.1.689749.3.579.2.7 1959 Unknown [id number] 2.16.840.1.241659.3.579.2.7 1959 Unknown [id number] 2.16.840.1.327020.3.579.2.7 27 1959 Unknown [id number] 2.16.840.1.382268.3.579.2.7 27 1959 Unknown [id number] 2.16.840.1.517717.3.579.2.7 27 1959 Unknown [id number] 2.16.840.1.854319.3.579.2.7 27 1959 Unknown [id number] 2.16.840.1.384726.3.579.2.7 27 1959 Unknown [id number] 2.16.840.1.492893.3.579.2.7 27 1959 Unknown [id number] 2.16.840.1.822563.3.579.2.7 27 1959 Unknown [id number] 2.16.840.1.614801.3.579.2.7 27 1959 Unknown [id number] 2.16.840.1.839463.3.579.2.7 27 1959 Unknown [id number] 2.16.840.1.349160.3.579.2.7 27 1959 Unknown [id number] 2.16.840.1.270331.3.579.2.7 27 1959 Unknown [id number] 2.16.840.1.460581.3.579.2.7 27 1959 Unknown [id number] 2.16.840.1.813984.3.579.2.7 27 1959 Unknown [id number] 2.16.840.1.802046.3.579.2.7 27 1959 Unknown [id number] 2.16.840.1.142412.3.579.2.1 259 1959 Unknown [id number] 2.16.840.1.349092.3.579.2.1 259 1959 Unknown [id number] 2.16.840.1.603742.3.579.2.1 259 1959 Unknown [id number] 2.16.840.1.133294.3.579.2.1 259 1959 Unknown [id number] 2.16.840.1.971007.3.579.2.1 259 1959 Unknown [id number] 2.16.840.1.484640.3.579.2.1 259 1959 Unknown [id number] 2.16.840.1.243435.3.579.2.1 259 1959 Unknown [id number] 2.16.840.1.678751.3.579.2.1 259 1959 Unknown [id number] 2.16.840.1.274557.3.579.2.1 259 1959 Unknown [id number] 2.16.840.1.320363.3.579.2.1 259 1959 Unknown [id number] 2.16.840.1.030943.3.579.2.1 259 1959 Unknown [id number] 2.16.840.1.117170.3.579.2.1 259 1959 Unknown [id number] 2.16.840.1.504846.3.579.2.1 259 1959 Unknown [id number] 2.16.840.1.135926.3.579.2.1 259 1959 Unknown [id number] 2.16.840.1.528303.3.579.2.1 259 Medicare Medicare [id number] Unknown [id number] 2.16.840.1.713917.3.579.2.5 31 Social History Date Type Detail Facility Start: 12-28-2021 End: 06-27-2023 Tobacco smoking status Never smoked tobacco (finding) [facility] Start: 09-06-2023 End: 12-04-2024 Sex Assigned At Male [facility] Start: 1960 Sex Assigned At Male Mi [facility] Start: 06-27-2023 Tobacco use and exposure Smoke less tobacco non-user [facility] Start: 09-06-2023 End: 03-17-2025 Alcohol intake Lifetime non-drinker (finding) [facility] Start: 09-06-2023 End: 12-04-2024 History of Social function [facility] Start: 04-02-2023 Alcohol Comment caffeine 1-2 c ups per day [facility] Start: 1960 Sex Assigned At Not on file [facility] Start: 10-24-2023 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 (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) [facility] Sexual Orientation [facility] Start: 11-09-2018 Sex Male (finding) [facility] Medical Equipment Procedure Code Equipment Code Equipment Origin al Text Equipment Identifier Dates Glucometer test strips, See Instructions, 100 strip(s), 11, Test TID DX E11.40 on insulin, [id number], Supply, 182, cm, 10/01/21 10:14:00 EST, Height/Length Dosing, 131.2, kg, 10/01/21 10:14:00 EST, Weight Dosing Start: 10-28-2021 lancets, See Instructions, 100 EA, 11, test blood sugar tid dx E11.9 on insulin, [email or web address] #[id number], Supply, 182, cm, 10/01/21 10:14:00 EST, Height/Length Dosing, 131.2, kg, 10/01/21 10:14:00 EST, Weight Dosing Start: 10-29-2021 Glucometer test strips, See Instructions, 100 strip(s), 11, Test TID DX E11.40 on insulin, [facility][id number], Supply, 182, cm, 10/01/21 10:14:00 EST, Height/Length Dosing, 131.2, kg, 10/01/21 10:14:00 EST, Weight Dosing Start: 10-28-2021 lancets, See Instructions, 100 EA, 11, test blood sugar tid dx E11.9 on insulin, [facility] #[id number], Supply, 182, cm, 10/01/21 10:14:00 EST, Height/Length Dosing, 131.2, kg, 10/01/21 10:14:00 EST, Weight Dosing Start: 10-29-2021 Glucometer test strips, See Instructions, 100 strip(s), 11, Test TID DX E11.40 on insulin, [facility][id number], Supply, 182, cm, 10/01/21 10:14:00 EST, Height/Length Dosing, 131.2, kg, 10/01/21 10:14:00 EST, Weight Dosing Start: 10-28-2021 lancets, See Instructions, 100 EA, 11, test blood sugar tid dx E11.9 on insulin, [facility] #[id number], Supply, 182, cm, 10/01/21 10:14:00 EST, Height/Length Dosing, 131.2, kg, 10/01/21 10:14:00 EST, Weight Dosing Start: 10-29-2021 Glucometer test strips, See Instructions, 100 strip(s), 11, Test TID DX E11.40 on insulin, [facility][id number], Supply, 182, cm, 10/01/21 10:14:00 EST, Height/Length Dosing, 131.2, kg, 10/01/21 10:14:00 EST, Weight Dosing Start: 10-28-2021 lancets, See Instructions, 100 EA, 11, test blood sugar tid dx E11.9 on insulin, [email or web address] #[id number], Supply, 182, cm, 10/01/21 10:14:00 EST, Height/Length Dosing, 131.2, kg, 10/01/21 10:14:00 EST, Weight Dosing Start: 10-29-2021 Glucometer test strips, See Instructions, 100 strip(s), 11, Test TID DX E11.40 on insulin, [facility] #[id number], Supply, 182, cm, 10/01/21 10:14:00 EST, Height/Length Dosing, 131.2, kg, 10/01/21 10:14:00 EST, Weight Dosing Start: 10-28-2021 lancets, See Instructions, 100 EA, 11, test blood sugar tid dx E11.9 on insulin, [facility] #[id number], Supply, 182, cm, 10/01/21 10:14:00 EST, Height/Length Dosing, 131.2, kg, 10/01/21 10:14:00 EST, Weight Dosing Start: 10-29-2021 Glucometer test strips, See Instructions, 100 strip(s), 11, Test TID DX E11.40 on insulin, [facility] #[id number], Supply, 182, cm, 10/01/21 10:14:00 EST, Height/Length Dosing, 131.2, kg, 10/01/21 10:14:00 EST, Weight Dosing Start: 10-28-2021 lancets, See Instructions, 100 EA, 11, test blood sugar tid dx E11.9 on insulin, [facility] #[id number], Supply, 182, cm, 10/01/21 10:14:00 EST, Height/Length Dosing, 131.2, kg, 10/01/21 10:14:00 EST, Weight Dosing Start: 10-29-2021 Glucometer test strips, See Instructions, 100 strip(s), 11, Test TID DX E11.40 on insulin, [facility] #[id number], Supply, 182, cm, 09/13/22 13:17:00 EST, Height/Length Dosing, 140.8, kg, 09/13/22 13:17:00 EST, Weight Dosing Start: 09-13-2022 Insulin Pen Need les 31g x 8 mm, See Instructions, 450 EA, 4, Use up to 4 daily, [facility] #[id number], Supply, 182, cm, 09/13/22 13:17:00 EST, Height/Length Dosing, 140.8, kg, 09/13/22 13:17:00 EST, Weight Dosing Start: 09-13-2022 lancets, See Instructions, 100 EA, 11, test blood sugar tid dx E11.9 on insulin, [facility] #[id number], Supply, 182, cm, 10/01/21 10:14:00 EST, Height/Length Dosing, 131.2, kg, 10/01/21 10:14:00 EST, Weight Dosing Start: 10-29-2021 Glucometer test strips, See Instructions, 100 strip(s), 11, Test TID DX E11.40 on insulin, [facility] #[id number], Supply, 182, cm, 09/13/22 13:17:00 EST, Height/Length Dosing, 140.8, kg, 09/13/22 13:17:00 EST, Weight Dosing Start: 09-13-2022 Insulin Pen Need les 31g x 8 mm, See Instructions, 450 EA, 4, Use up to 4 daily, [facility] #[id number], Supply, 182, cm, 09/13/22 13:17:00 EST, Height/Length Dosing, 140.8, kg, 09/13/22 13:17:00 EST, Weight Dosing Start: 09-13-2022 lancets, See Instructions, 100 EA, 11, test blood sugar tid dx E11.9 on insulin, [facility] #[id number], Supply, 182, cm, 10/01/21 10:14:00 EST, Height/Length Dosing, 131.2, kg, 10/01/21 10:14:00 EST, Weight Dosing Start: 10-29-2021 Glucometer test strips, See Instructions, 100 strip(s), 11, Test TID DX E11.40 on insulin, [facility] #[id number], Supply, 182, cm, 09/13/22 13:17:00 EST, Height/Length Dosing, 140.8, kg, 09/13/22 13:17:00 EST, Weight Dosing Start: 09-13-2022 Insulin Pen Need les 31g x 8 mm, See Instructions, 450 EA, 4, Use up to 4 daily, [facility] #[id number], Supply, 182, cm, 09/13/22 13:17:00 EST, Height/Length Dosing, 140.8, kg, 09/13/22 13:17:00 EST, Weight Dosing Start: 09-13-2022 lancets, See Instructions, 100 EA, 11, test blood sugar tid dx E11.9 on insulin, [facility] #[id number], Supply, 182, cm, 10/01/21 10:14:00 EST, Height/Length Dosing, 131.2, kg, 10/01/21 10:14:00 EST, Weight Dosing Start: 10-29-2021 Glucometer test strips, See Instructions, 100 strip(s), 11, Test TID DX E11.40 on insulin, [facility] #[id number], Supply, 182, cm, 09/13/22 13:17:00 EST, Height/Length Dosing, 140.8, kg, 09/13/22 13:17:00 EST, Weight Dosing Start: 11-03-2022 Insulin Pen Need les 31g x 8 mm, See Instructions, 450 EA, 4, Use up to 4 daily, [facility] #[id number], Supply, 182, cm, 09/13/22 13:17:00 EST, Height/Length Dosing, 140.8, kg, 09/13/22 13:17:00 EST, Weight Dosing Start: 09-13-2022 lancets, See Instructions, 100 EA, 11, test blood sugar tid dx E11.9 on insulin, [facility] #[id number], Supply, 182, cm, 09/13/22 13:17:00 EST, Height/Length Dosing, 140.8, kg, 09/13/22 13:17:00 EST, Weight Dosing Start: 11-03-2022 Glucometer test strips, See Instructions, 100 strip(s), 11, Test TID DX E11.40 on insulin, [facility] #[id number], Supply, 182, cm, 09/13/22 13:17:00 EST, Height/Length Dosing, 140.8, kg, 09/13/22 13:17:00 EST, Weight Dosing Start: 11-03-2022 Insulin Pen Need les 31g x 8 mm, See Instructions, 450 EA, 4, Use up to 4 daily, [facility] #[id number], Supply, 182, cm, 09/13/22 13:17:00 EST, Height/Length Dosing, 140.8, kg, 09/13/22 13:17:00 EST, Weight Dosing Start: 09-13-2022 lancets, See Instructions, 100 EA, 11, test blood sugar tid dx E11.9 on insulin, [facility] #[id number], Supply, 182, cm, 09/13/22 13:17:00 EST, Height/Length Dosing, 140.8, kg, 09/13/22 13:17:00 EST, Weight Dosing Start: 11-03-2022 Glucometer test strips, See Instructions, 100 strip(s), 11, Test TID DX E11.40 on insulin, [facility] #[id number], Supply, 182, cm, 09/13/22 13:17:00 EST, Height/Length Dosing, 140.8, kg, 09/13/22 13:17:00 EST, Weight Dosing Start: 11-03-2022 Insulin Pen Need les 31g x 8 mm, See Instructions, 450 EA, 4, Use up to 4 daily, [facility] #[id number], Supply, 182, cm, 09/13/22 13:17:00 EST, Height/Length Dosing, 140.8, kg, 09/13/22 13:17:00 EST, Weight Dosing Start: 09-13-2022 lancets, See Instructions, 100 EA, 11, test blood sugar tid dx E11.9 on insulin, [facility] #[id number], Supply, 182, cm, 09/13/22 13:17:00 EST, Height/Length Dosing, 140.8, kg, 09/13/22 13:17:00 EST, Weight Dosing Start: 11-03-2022 Glucometer test strips, See Instructions, 100 strip(s), 11, Test TID DX E11.40 on insulin, [facility] #[id number], Supply, 182, cm, 09/13/22 13:17:00 EST, Height/Length Dosing, 140.8, kg, 09/13/22 13:17:00 EST, Weight Dosing Start: 11-03-2022 Insulin Pen Need les 31g x 8 mm, See Instructions, 450 EA, 4, Use up to 4 daily, [facility] #[id number], Supply, 182, cm, 09/13/22 13:17:00 EST, Height/Length Dosing, 140.8, kg, 09/13/22 13:17:00 EST, Weight Dosing Start: 09-13-2022 lancets, See Instructions, 100 EA, 11, test blood sugar tid dx E11.9 on insulin, [facility] #[id number], Supply, 182, cm, 09/13/22 13:17:00 EST, Height/Length Dosing, 140.8, kg, 09/13/22 13:17:00 EST, Weight Dosing Start: 11-03-2022 Glucometer test strips, See Instructions, 100 strip(s), 11, Test TID DX E11.40 on insulin, [facility] #[id number], Supply, 182, cm, 09/13/22 13:17:00 EST, Height/Length Dosing, 140.8, kg, 09/13/22 13:17:00 EST, Weight Dosing Start: 11-03-2022 Insulin Pen Need les 31g x 8 mm, See Instructions, 450 EA, 4, Use up to 4 daily, [facility] #[id number], Supply, 182, cm, 09/13/22 13:17:00 EST, Height/Length Dosing, 140.8, kg, 09/13/22 13:17:00 EST, Weight Dosing Start: 09-13-2022 lancets, See Instructions, 100 EA, 11, test blood sugar tid dx E11.9 on insulin, [facility] #[id number], Supply, 182, cm, 09/13/22 13:17:00 EST, Height/Length Dosing, 140.8, kg, 09/13/22 13:17:00 EST, Weight Dosing Start: 11-03-2022 Glucometer test strips, See Instructions, 100 strip(s), 11, Test TID DX E11.40 on insulin, [facility] #[id number], Supply, 182, cm, 09/13/22 13:17:00 EST, Height/Length Dosing, 140.8, kg, 09/13/22 13:17:00 EST, Weight Dosing Start: 11-03-2022 Insulin Pen Need les 31g x 8 mm, See Instructions, 450 EA, 4, Use up to 4 daily, [facility] #[id number], Supply, 182, cm, 09/13/22 13:17:00 EST, Height/Length Dosing, 140.8, kg, 09/13/22 13:17:00 EST, Weight Dosing Start: 09-13-2022 lancets, See Instructions, 100 EA, 11, test blood sugar tid dx E11.9 on insulin, [facility] #[id number], Supply, 182, cm, 09/13/22 13:17:00 EST, Height/Length Dosing, 140.8, kg, 09/13/22 13:17:00 EST, Weight Dosing Start: 11-03-2022 Glucometer test strips, See Instructions, 100 strip(s), 11, Test TID DX E11.40 on insulin, [facility] #[id number], Supply, 182, cm, 09/13/22 13:17:00 EST, Height/Length Dosing, 140.8, kg, 09/13/22 13:17:00 EST, Weight Dosing Start: 11-03-2022 Insulin Pen Need les 31g x 8 mm, See Instructions, 450 EA, 4, Use up to 4 daily, [facility] #[id number], Supply, 182, cm, 09/13/22 13:17:00 EST, Height/Length Dosing, 140.8, kg, 09/13/22 13:17:00 EST, Weight Dosing Start: 09-13-2022 lancets, See Instructions, 100 EA, 11, test blood sugar tid dx E11.9 on insulin, [facility] #[id number], Supply, 182, cm, 09/13/22 13:17:00 EST, Height/Length Dosing, 140.8, kg, 09/13/22 13:17:00 EST, Weight Dosing Start: 11-03-2022 Glucometer test strips, See Instructions, 100 strip(s), 11, Test TID DX E11.40 on insulin, [facility] #[id number], Supply, 182, cm, 09/13/22 13:17:00 EST, Height/Length Dosing, 140.8, kg, 09/13/22 13:17:00 EST, Weight Dosing Start: 11-03-2022 Insulin Pen Need les 31g x 8 mm, See Instructions, 450 EA, 4, Use up to 4 daily, [facility] #[id number], Supply, 182, cm, 09/13/22 13:17:00 EST, Height/Length Dosing, 140.8, kg, 09/13/22 13:17:00 EST, Weight Dosing Start: 09-13-2022 lancets, See Instructions, 100 EA, 11, test blood sugar tid dx E11.9 on insulin, [facility] #[id number], Supply, 182, cm, 09/13/22 13:17:00 EST, Height/Length Dosing, 140.8, kg, 09/13/22 13:17:00 EST, Weight Dosing Start: 11-03-2022 Glucometer test strips, See Instructions, 100 strip(s), 11, Test TID DX E11.40 on insulin, [facility] #[id number], Supply, 182, cm, 09/13/22 13:17:00 EST, Height/Length Dosing, 140.8, kg, 09/13/22 13:17:00 EST, Weight Dosing Start: 11-03-2022 Insulin Pen Need les 31g x 8 mm, See Instructions, 450 EA, 4, Use up to 4 daily, [facility] #[id number], Supply, 182, cm, 09/13/22 13:17:00 EST, Height/Length Dosing, 140.8, kg, 09/13/22 13:17:00 EST, Weight Dosing Start: 09-13-2022 lancets, See Instructions, 100 EA, 11, test blood sugar tid dx E11.9 on insulin, [facility] #[id number], Supply, 182, cm, 09/13/22 13:17:00 EST, Height/Length Dosing, 140.8, kg, 09/13/22 13:17:00 EST, Weight Dosing Start: 11-03-2022 Glucometer test strips, See Instructions, 100 strip(s), 11, Test TID DX E11.40 on insulin, [facility] #[id number], Supply, 182, cm, 09/13/22 13:17:00 EST, Height/Length Dosing, 140.8, kg, 09/13/22 13:17:00 EST, Weight Dosing Start: 11-03-2022 Insulin Pen Need les 31g x 8 mm, See Instructions, 450 EA, 4, Use up to 4 daily, [facility] #[id number], Supply, 182, cm, 05/22/23 13:30:00 EDT, Height/Length Dosing, 139.6, kg, 05/22/23 13:30:00 EDT, Weight Dosing Start: 05-22-2023 lancets, See Instructions, 100 EA, 11, test blood sugar tid dx E11.9 on insulin, [facility] #[id number], Supply, 182, cm, 09/13/22 13:17:00 EST, Height/Length Dosing, 140.8, kg, 09/13/22 13:17:00 EST, Weight Dosing Start: 11-03-2022 Glucometer test strips, See Instructions, 100 strip(s), 11, Test TID DX E11.40 on insulin, [facility] #[id number], Supply, 182, cm, 09/13/22 13:17:00 EST, Height/Length Dosing, 140.8, kg, 09/13/22 13:17:00 EST, Weight Dosing Start: 11-03-2022 Insulin Pen Need les 31g x 8 mm, See Instructions, 450 EA, 4, Use up to 4 daily, [facility] #[id number], Supply, 182, cm, 05/22/23 13:30:00 EDT, Height/Length Dosing, 139.6, kg, 05/22/23 13:30:00 EDT, Weight Dosing Start: 05-22-2023 lancets, See Instructions, 100 EA, 11, test blood sugar tid dx E11.9 on insulin, [facility] #[id number], Supply, 182, cm, 09/13/22 13:17:00 EST, Height/Length Dosing, 140.8, kg, 09/13/22 13:17:00 EST, Weight Dosing Start: 11-03-2022 Glucometer test strips, See Instructions, 100 strip(s), 11, Test TID DX E11.40 on insulin, [facility] #[id number], Supply, 182, cm, 09/13/22 13:17:00 EST, Height/Length Dosing, 140.8, kg, 09/13/22 13:17:00 EST, Weight Dosing Start: 11-03-2022 Insulin Pen Need les 31g x 8 mm, See Instructions, 450 EA, 4, Use up to 4 daily, [facility] #[id number], Supply, 182, cm, 05/22/23 13:30:00 EDT, Height/Length Dosing, 139.6, kg, 05/22/23 13:30:00 EDT, Weight Dosing Start: 05-22-2023 lancets, See Instructions, 100 EA, 11, test blood sugar tid dx E11.9 on insulin, [facility] #[id number], Supply, 182, cm, 09/13/22 13:17:00 EST, Height/Length Dosing, 140.8, kg, 09/13/22 13:17:00 EST, Weight Dosing Start: 11-03-2022 Glucometer test strips, See Instructions, 100 strip(s), 11, Test TID DX E11.40 on insulin, [facility] #[id number], Supply, 182, cm, 09/13/22 13:17:00 EST, Height/Length Dosing, 140.8, kg, 09/13/22 13:17:00 EST, Weight Dosing Start: 11-03-2022 Insulin Pen Need les 31g x 8 mm, See Instructions, 450 EA, 4, Use up to 4 daily, [facility] #[id number], Supply, 182, cm, 05/22/23 13:30:00 EDT, Height/Length Dosing, 139.6, kg, 05/22/23 13:30:00 EDT, Weight Dosing Start: 05-22-2023 lancets, See Instructions, 100 EA, 11, test blood sugar tid dx E11.9 on insulin, [facility] #[id number], Supply, 182, cm, 09/13/22 13:17:00 EST, Height/Length Dosing, 140.8, kg, 09/13/22 13:17:00 EST, Weight Dosing Start: 11-03-2022 Glucometer test strips, See Instructions, 100 strip(s), 11, Test TID DX E11.40 on insulin, [facility] #[id number], Supply, 182, cm, 09/13/22 13:17:00 EST, Height/Length Dosing, 140.8, kg, 09/13/22 13:17:00 EST, Weight Dosing Start: 11-03-2022 Insulin Pen Need les 31g x 8 mm, See Instructions, 450 EA, 4, Use up to 4 daily, [facility] #[id number], Supply, 182, cm, 05/22/23 13:30:00 EDT, Height/Length Dosing, 139.6, kg, 05/22/23 13:30:00 EDT, Weight Dosing Start: 05-22-2023 lancets, See Instructions, 100 EA, 11, test blood sugar tid dx E11.9 on insulin, [facility] #[id number], Supply, 182, cm, 09/13/22 13:17:00 EST, Height/Length Dosing, 140.8, kg, 09/13/22 13:17:00 EST, Weight Dosing Start: 11-03-2022 Glucometer test strips, See Instructions, 100 strip(s), 11, Test TID DX E11.40 on insulin, [facility] #[id number], Supply, 182, cm, 09/13/22 13:17:00 EST, Height/Length Dosing, 140.8, kg, 09/13/22 13:17:00 EST, Weight Dosing Start: 11-03-2022 Insulin Pen Need les 31g x 8 mm, See Instructions, 450 EA, 4, Use up to 4 daily, [facility] #[id number], Supply, 182, cm, 05/22/23 13:30:00 EDT, Height/Length Dosing, 139.6, kg, 05/22/23 13:30:00 EDT, Weight Dosing Start: 05-22-2023 lancets, See Instructions, 100 EA, 11, test blood sugar tid dx E11.9 on insulin, [facility] #[id number], Supply, 182, cm, 09/13/22 13:17:00 EST, Height/Length Dosing, 140.8, kg, 09/13/22 13:17:00 EST, Weight Dosing Start: 11-03-2022 Glucometer test strips, See Instructions, 100 strip(s), 11, Test TID DX E11.40 on insulin, [facility] #[id number], Supply, 182, cm, 09/13/22 13:17:00 EST, Height/Length Dosing, 140.8, kg, 09/13/22 13:17:00 EST, Weight Dosing Start: 11-03-2022 Insulin Pen Need les 31g x 8 mm, See Instructions, 450 EA, 4, Use up to 4 daily, [facility] #[id number], Supply, 182, cm, 05/22/23 13:30:00 EDT, Height/Length Dosing, 139.6, kg, 05/22/23 13:30:00 EDT, Weight Dosing Start: 05-22-2023 lancets, See Instructions, 100 EA, 11, test blood sugar tid dx E11.9 on insulin, [facility] #[id number], Supply, 182, cm, 09/13/22 13:17:00 EST, Height/Length Dosing, 140.8, kg, 09/13/22 13:17:00 EST, Weight Dosing Start: 11-03-2022 Glucometer test strips, See Instructions, 100 strip(s), 11, Test TID DX E11.40 on insulin, [facility] #[id number], Supply, 182, cm, 09/13/22 13:17:00 EST, Height/Length Dosing, 140.8, kg, 09/13/22 13:17:00 EST, Weight Dosing Start: 11-03-2022 Insulin Pen Need les 31g x 8 mm, See Instructions, 450 EA, 4, Use up to 4 daily, [facility] #[id number], Supply, 182, cm, 05/22/23 13:30:00 EDT, Height/Length Dosing, 139.6, kg, 05/22/23 13:30:00 EDT, Weight Dosing Start: 05-22-2023 lancets, See Instructions, 100 EA, 11, test blood sugar tid dx E11.9 on insulin, [facility] #[id number], Supply, 182, cm, 09/13/22 13:17:00 EST, Height/Length Dosing, 140.8, kg, 09/13/22 13:17:00 EST, Weight Dosing Start: 11-03-2022 Glucometer test strips, See Instructions, 100 strip(s), 11, Test TID DX E11.40 on insulin, [facility] #[id number], Supply, 182, cm, 09/13/22 13:17:00 EST, Height/Length Dosing, 140.8, kg, 09/13/22 13:17:00 EST, Weight Dosing Start: 11-03-2022 Insulin Pen Need les 31g x 8 mm, See Instructions, 450 EA, 4, Use up to 4 daily, [facility] #[id number], Supply, 182, cm, 05/22/23 13:30:00 EDT, Height/Length Dosing, 139.6, kg, 05/22/23 13:30:00 EDT, Weight Dosing Start: 05-22-2023 lancets, See Instructions, 100 EA, 11, test blood sugar tid dx E11.9 on insulin, [facility] #[id number], Supply, 182, cm, 09/13/22 13:17:00 EST, Height/Length Dosing, 140.8, kg, 09/13/22 13:17:00 EST, Weight Dosing Start: 11-03-2022 Glucometer test strips, See Instructions, 100 strip(s), 11, Test TID DX E11.40 on insulin, [facility] #[id number], Supply, 182, cm, 09/13/22 13:17:00 EST, Height/Length Dosing, 140.8, kg, 09/13/22 13:17:00 EST, Weight Dosing Start: 11-03-2022 Insulin Pen Need les 31g x 8 mm, See Instructions, 450 EA, 4, Use up to 4 daily, [facility] #[id number], Supply, 182, cm, 05/22/23 13:30:00 EDT, Height/Length Dosing, 139.6, kg, 05/22/23 13:30:00 EDT, Weight Dosing Start: 05-22-2023 lancets, See Instructions, 100 EA, 11, test blood sugar tid dx E11.9 on insulin, [facility] #[id number], Supply, 182, cm, 09/13/22 13:17:00 EST, Height/Length Dosing, 140.8, kg, 09/13/22 13:17:00 EST, Weight Dosing Start: 11-03-2022 Glucometer test strips, See Instructions, 100 strip(s), 11, Test TID DX E11.40 on insulin, [facility] #[id number], Supply, 182, cm, 09/13/22 13:17:00 EST, Height/Length Dosing, 140.8, kg, 09/13/22 13:17:00 EST, Weight Dosing Start: 11-03-2022 Insulin Pen Need les 31g x 8 mm, See Instructions, 450 EA, 4, Use up to 4 daily, [facility] #[id number], Supply, 182, cm, 05/22/23 13:30:00 EDT, Height/Length Dosing, 139.6, kg, 05/22/23 13:30:00 EDT, Weight Dosing Start: 05-22-2023 lancets, See Instructions, 100 EA, 11, test blood sugar tid dx E11.9 on insulin, [facility] #[id number], Supply, 182, cm, 09/13/22 13:17:00 EST, Height/Length Dosing, 140.8, kg, 09/13/22 13:17:00 EST, Weight Dosing Start: 11-03-2022 Glucometer test strips, See Instructions, 100 strip(s), 11, Test TID DX E11.40 on insulin, [facility] #[id number], Supply, 182, cm, 09/13/22 13:17:00 EST, Height/Length Dosing, 140.8, kg, 09/13/22 13:17:00 EST, Weight Dosing Start: 11-03-2022 Insulin Pen Need les 31g x 8 mm, See Instructions, 450 EA, 4, Use up to 4 daily, [facility] #[id number], Supply, 182, cm, 05/22/23 13:30:00 EDT, Height/Length Dosing, 139.6, kg, 05/22/23 13:30:00 EDT, Weight Dosing Start: 05-22-2023 lancets, See Instructions, 100 EA, 11, test blood sugar tid dx E11.9 on insulin, [facility] #[id number], Supply, 182, cm, 09/13/22 13:17:00 EST, Height/Length Dosing, 140.8, kg, 09/13/22 13:17:00 EST, Weight Dosing Start: 11-03-2022 Glucometer test strips, See Instructions, 100 strip(s), 11, Test TID DX E11.40 on insulin, [facility] #[id number], Supply, 182, cm, 09/13/22 13:17:00 EST, Height/Length Dosing, 140.8, kg, 09/13/22 13:17:00 EST, Weight Dosing Start: 11-03-2022 Insulin Pen Need les 31g x 8 mm, See Instructions, 450 EA, 4, Use up to 4 daily, [facility] #[id number], Supply, 182, cm, 05/22/23 13:30:00 EDT, Height/Length Dosing, 139.6, kg, 05/22/23 13:30:00 EDT, Weight Dosing Start: 05-22-2023 lancets, See Instructions, 100 EA, 11, test blood sugar tid dx E11.9 on insulin, [facility] #[id number], Supply, 182, cm, 09/13/22 13:17:00 EST, Height/Length Dosing, 140.8, kg, 09/13/22 13:17:00 EST, Weight Dosing Start: 11-03-2022 Glucometer test strips, See Instructions, 100 strip(s), 11, Test TID DX E11.40 on insulin, [facility] #[id number], Supply, 182, cm, 09/13/22 13:17:00 EST, Height/Length Dosing, 140.8, kg, 09/13/22 13:17:00 EST, Weight Dosing Start: 11-03-2022 Insulin Pen Need les 31g x 8 mm, See Instructions, 450 EA, 4, Use up to 4 daily, [facility] #[id number], Supply, 182, cm, 05/22/23 13:30:00 EDT, Height/Length Dosing, 139.6, kg, 05/22/23 13:30:00 EDT, Weight Dosing Start: 05-22-2023 lancets, See Instructions, 100 EA, 11, test blood sugar tid dx E11.9 on insulin, [facility] #[id number], Supply, 182, cm, 09/13/22 13:17:00 EST, Height/Length Dosing, 140.8, kg, 09/13/22 13:17:00 EST, Weight Dosing Start: 11-03-2022 Glucometer test strips, See Instructions, 100 strip(s), 11, Test TID DX E11.40 on insulin, [facility] #[id number], Supply, 182, cm, 09/13/22 13:17:00 EST, Height/Length Dosing, 140.8, kg, 09/13/22 13:17:00 EST, Weight Dosing Start: 11-03-2022 Insulin Pen Need les 31g x 8 mm, See Instructions, 450 EA, 4, Use up to 4 daily, [facility] #[id number], Supply, 182, cm, 05/22/23 13:30:00 EDT, Height/Length Dosing, 139.6, kg, 05/22/23 13:30:00 EDT, Weight Dosing Start: 05-22-2023 lancets, See Instructions, 100 EA, 11, test blood sugar tid dx E11.9 on insulin, [facility] #[id number], Supply, 182, cm, 09/13/22 13:17:00 EST, Height/Length Dosing, 140.8, kg, 09/13/22 13:17:00 EST, Weight Dosing Start: 11-03-2022 Glucometer test strips, See Instructions, 100 strip(s), 11, Test TID DX E11.40 on insulin, [facility] #[id number], Supply, 180, cm, 09/12/23 13:35:00 EST, Height/Length Dosing, 149.8, kg, 09/12/23 13:35:00 EST, Weight Dosing Start: 09-16-2023 Insulin Pen Need les 31g x 8 mm, See Instructions, 450 EA, 4, Use up to 4 daily, [facility] #[id number], Supply, 180, cm, 09/12/23 13:35:00 EST, Height/Length Dosing, 149.8, kg, 09/12/23 13:35:00 EST, Weight Dosing Start: 09-16-2023 lancets, See Instructions, 100 EA, 11, test blood sugar tid dx E11.9 on insulin, [facility] #[id number], Supply, 180, cm, 09/12/23 13:35:00 EST, Height/Length Dosing, 149.8, kg, 09/12/23 13:35:00 EST, Weight Dosing Start: 09-16-2023 Glucometer test strips, See Instructions, 100 strip(s), 11, Test TID DX E11.40 on insulin, [facility] #[id number], Supply, 180, cm, 09/12/23 13:35:00 EST, Height/Length Dosing, 149.8, kg, 09/12/23 13:35:00 EST, Weight Dosing Start: 09-16-2023 Insulin Pen Need les 31g x 8 mm, See Instructions, 450 EA, 4, Use up to 4 daily, [facility] #[id number], Supply, 180, cm, 09/12/23 13:35:00 EST, Height/Length Dosing, 149.8, kg, 09/12/23 13:35:00 EST, Weight Dosing Start: 09-16-2023 lancets, See Instructions, 100 EA, 11, test blood sugar tid dx E11.9 on insulin, [facility] #[id number], Supply, 180, cm, 09/12/23 13:35:00 EST, Height/Length Dosing, 149.8, kg, 09/12/23 13:35:00 EST, Weight Dosing Start: 09-16-2023 Glucometer test strips, See Instructions, 100 strip(s), 11, Test TID DX E11.40 on insulin, [facility] #[id number], Supply, 180, cm, 09/12/23 13:35:00 EST, Height/Length Dosing, 149.8, kg, 09/12/23 13:35:00 EST, Weight Dosing Start: 09-16-2023 Insulin Pen Need les 31g x 8 mm, See Instructions, 450 EA, 4, Use up to 4 daily, [facility] #[id number], Supply, 180, cm, 09/12/23 13:35:00 EST, Height/Length Dosing, 149.8, kg, 09/12/23 13:35:00 EST, Weight Dosing Start: 09-16-2023 lancets, See Instructions, 100 EA, 11, test blood sugar tid dx E11.9 on insulin, [facility] #[id number], Supply, 180, cm, 09/12/23 13:35:00 EST, Height/Length Dosing, 149.8, kg, 09/12/23 13:35:00 EST, Weight Dosing Start: 09-16-2023 Glucometer test strips, See Instructions, 100 strip(s), 11, Test TID DX E11.40 on insulin, [facility] #[id number], Supply, 180, cm, 09/12/23 13:35:00 EST, Height/Length Dosing, 149.8, kg, 09/12/23 13:35:00 EST, Weight Dosing Start: 09-16-2023 Insulin Pen Need les 31g x 8 mm, See Instructions, 450 EA, 4, Use up to 4 daily, [facility] #[id number], Supply, 180, cm, 09/12/23 13:35:00 EST, Height/Length Dosing, 149.8, kg, 09/12/23 13:35:00 EST, Weight Dosing Start: 09-16-2023 lancets, See Instructions, 100 EA, 11, test blood sugar tid dx E11.9 on insulin, [facility] #[id number], Supply, 180, cm, 09/12/23 13:35:00 EST, Height/Length Dosing, 149.8, kg, 09/12/23 13:35:00 EST, Weight Dosing Start: 09-16-2023 Glucometer test strips, See Instructions, 100 strip(s), 11, Test TID DX E11.40 on insulin, [facility] #[id number], Supply, 180, cm, 09/12/23 13:35:00 EST, Height/Length Dosing, 149.8, kg, 09/12/23 13:35:00 EST, Weight Dosing Start: 09-16-2023 Insulin Pen Need les 31g x 8 mm, See Instructions, 450 EA, 4, Use up to 4 daily, [facility] #[id number], Supply, 180, cm, 09/12/23 13:35:00 EST, Height/Length Dosing, 149.8, kg, 09/12/23 13:35:00 EST, Weight Dosing Start: 09-16-2023 lancets, See Instructions, 100 EA, 11, test blood sugar tid dx E11.9 on insulin, [facility] #[id number], Supply, 180, cm, 09/12/23 13:35:00 EST, Height/Length Dosing, 149.8, kg, 09/12/23 13:35:00 EST, Weight Dosing Start: 09-16-2023 Glucometer test strips, See Instructions, 100 strip(s), 11, Test TID DX E11.40 on insulin, [facility] #[id number], Supply, 180, cm, 09/12/23 13:35:00 EST, Height/Length Dosing, 149.8, kg, 09/12/23 13:35:00 EST, Weight Dosing Start: 09-16-2023 Insulin Pen Need les 31g x 8 mm, See Instructions, 450 EA, 4, Use up to 4 daily, [facility] #[id number], Supply, 180, cm, 09/12/23 13:35:00 EST, Height/Length Dosing, 149.8, kg, 09/12/23 13:35:00 EST, Weight Dosing Start: 09-16-2023 lancets, See Instructions, 100 EA, 11, test blood sugar tid dx E11.9 on insulin, [facility] #[id number], Supply, 180, cm, 09/12/23 13:35:00 EST, Height/Length Dosing, 149.8, kg, 09/12/23 13:35:00 EST, Weight Dosing Start: 09-16-2023 Glucometer test strips, See Instructions, 100 strip(s), 11, Test TID DX E11.40 on insulin, [facility] #[id number], Supply, 180, cm, 09/12/23 13:35:00 EST, Height/Length Dosing, 149.8, kg, 09/12/23 13:35:00 EST, Weight Dosing Start: 09-16-2023 Insulin Pen Need les 31g x 8 mm, See Instructions, 450 EA, 4, Use up to 4 daily, [facility] #[id number], Supply, 180, cm, 09/12/23 13:35:00 EST, Height/Length Dosing, 149.8, kg, 09/12/23 13:35:00 EST, Weight Dosing Start: 09-16-2023 lancets, See Instructions, 100 EA, 11, test blood sugar tid dx E11.9 on insulin, [facility] #[id number], Supply, 180, cm, 09/12/23 13:35:00 EST, Height/Length Dosing, 149.8, kg, 09/12/23 13:35:00 EST, Weight Dosing Start: 09-16-2023 Glucometer test strips, See Instructions, 100 strip(s), 11, Test TID DX E11.40 on insulin, [facility] #[id number], Supply, 180, cm, 09/12/23 13:35:00 EST, Height/Length Dosing, 149.8, kg, 09/12/23 13:35:00 EST, Weight Dosing Start: 09-16-2023 Insulin Pen Need les 31g x 8 mm, See Instructions, 450 EA, 4, Use up to 4 daily, [facility] #[id number], Supply, 180, cm, 09/12/23 13:35:00 EST, Height/Length Dosing, 149.8, kg, 09/12/23 13:35:00 EST, Weight Dosing Start: 09-16-2023 lancets, See Instructions, 100 EA, 11, test blood sugar tid dx E11.9 on insulin, [facility] #[id number], Supply, 180, cm, 09/12/23 13:35:00 EST, Height/Length Dosing, 149.8, kg, 09/12/23 13:35:00 EST, Weight Dosing Start: 09-16-2023 Glucometer test strips, See Instructions, 100 strip(s), 11, Test TID DX E11.40 on insulin, [facility] #[id number], Supply, 180, cm, 09/12/23 13:35:00 EST, Height/Length Dosing, 149.8, kg, 09/12/23 13:35:00 EST, Weight Dosing Start: 09-16-2023 Insulin Pen Need les 31g x 8 mm, See Instructions, 450 EA, 4, Use up to 4 daily, [facility] #[id number], Supply, 180, cm, 09/12/23 13:35:00 EST, Height/Length Dosing, 149.8, kg, 09/12/23 13:35:00 EST, Weight Dosing Start: 09-16-2023 lancets, See Instructions, 100 EA, 11, test blood sugar tid dx E11.9 on insulin, [facility] #[id number], Supply, 180, cm, 09/12/23 13:35:00 EST, Height/Length Dosing, 149.8, kg, 09/12/23 13:35:00 EST, Weight Dosing Start: 09-16-2023 Glucometer test strips, See Instructions, 100 strip(s), 11, Test TID DX E11.40 on insulin, [facility] #[id number], Supply, 180, cm, 09/12/23 13:35:00 EST, Height/Length Dosing, 149.8, kg, 09/12/23 13:35:00 EST, Weight Dosing Start: 09-16-2023 Insulin Pen Need les 31g x 8 mm, See Instructions, 450 EA, 4, Use up to 4 daily, [facility] #[id number], Supply, 180, cm, 09/12/23 13:35:00 EST, Height/Length Dosing, 149.8, kg, 09/12/23 13:35:00 EST, Weight Dosing Start: 09-16-2023 lancets, See Instructions, 100 EA, 11, test blood sugar tid dx E11.9 on insulin, [facility] #[id number], Supply, 180, cm, 09/12/23 13:35:00 EST, Height/Length Dosing, 149.8, kg, 09/12/23 13:35:00 EST, Weight Dosing Start: 09-16-2023 Glucometer test strips, See Instructions, 100 strip(s), 11, Test TID DX E11.40 on insulin, [facility] #[id number], Supply, 180, cm, 09/12/23 13:35:00 EST, Height/Length Dosing, 149.8, kg, 09/12/23 13:35:00 EST, Weight Dosing Start: 09-16-2023 Insulin Pen Need les 31g x 8 mm, See Instructions, 450 EA, 4, Use up to 4 daily, [facility] #[id number], Supply, 180, cm, 09/12/23 13:35:00 EST, Height/Length Dosing, 149.8, kg, 09/12/23 13:35:00 EST, Weight Dosing Start: 09-16-2023 lancets, See Instructions, 100 EA, 11, test blood sugar tid dx E11.9 on insulin, [facility] #[id number], Supply, 180, cm, 09/12/23 13:35:00 EST, Height/Length Dosing, 149.8, kg, 09/12/23 13:35:00 EST, Weight Dosing Start: 09-16-2023 Glucometer test strips, See Instructions, 100 strip(s), 11, Test TID DX E11.40 on insulin, [facility] #[id number], Supply, 180, cm, 09/12/23 13:35:00 EST, Height/Length Dosing, 149.8, kg, 09/12/23 13:35:00 EST, Weight Dosing Start: 09-16-2023 Insulin Pen Need les 31g x 8 mm, See Instructions, 450 EA, 4, Use up to 4 daily, [facility] #[id number], Supply, 180, cm, 09/12/23 13:35:00 EST, Height/Length Dosing, 149.8, kg, 09/12/23 13:35:00 EST, Weight Dosing Start: 09-16-2023 lancets, See Instructions, 100 EA, 11, test blood sugar tid dx E11.9 on insulin, [facility] #[id number], Supply, 180, cm, 09/12/23 13:35:00 EST, Height/Length Dosing, 149.8, kg, 09/12/23 13:35:00 EST, Weight Dosing Start: 09-16-2023 Glucometer test strips, See Instructions, 100 strip(s), 11, Test TID DX E11.40 on insulin, [facility] #[id number], Supply, 180, cm, 09/12/23 13:35:00 EST, Height/Length Dosing, 149.8, kg, 09/12/23 13:35:00 EST, Weight Dosing Start: 09-16-2023 Insulin Pen Need les 31g x 8 mm, See Instructions, 450 EA, 4, Use up to 4 daily, [facility] #[id number], Supply, 180, cm, 09/12/23 13:35:00 EST, Height/Length Dosing, 149.8, kg, 09/12/23 13:35:00 EST, Weight Dosing Start: 09-16-2023 lancets, See Instructions, 100 EA, 11, test blood sugar tid dx E11.9 on insulin, [facility] #[id number], Supply, 180, cm, 09/12/23 13:35:00 EST, Height/Length Dosing, 149.8, kg, 09/12/23 13:35:00 EST, Weight Dosing Start: 09-16-2023 Glucometer test strips, See Instructions, 100 strip(s), 11, Test TID DX E11.40 on insulin, [facility] #[id number], Supply, 180, cm, 09/12/23 13:35:00 EST, Height/Length Dosing, 149.8, kg, 09/12/23 13:35:00 EST, Weight Dosing Start: 09-16-2023 Insulin Pen Need les 31g x 8 mm, See Instructions, 450 EA, 4, Use up to 4 daily, [facility] #[id number], Supply, 180, cm, 09/12/23 13:35:00 EST, Height/Length Dosing, 149.8, kg, 09/12/23 13:35:00 EST, Weight Dosing Start: 09-16-2023 lancets, See Instructions, 100 EA, 11, test blood sugar tid dx E11.9 on insulin, [facility] #[id number], Supply, 180, cm, 09/12/23 13:35:00 EST, Height/Length Dosing, 149.8, kg, 09/12/23 13:35:00 EST, Weight Dosing Start: 09-16-2023 Glucometer test strips, See Instructions, 100 strip(s), 11, Test TID DX E11.40 on insulin, [facility] #[id number], Supply, 180, cm, 09/12/23 13:35:00 EST, Height/Length Dosing, 149.8, kg, 09/12/23 13:35:00 EST, Weight Dosing Start: 09-16-2023 Insulin Pen Need les 31g x 8 mm, See Instructions, 450 EA, 4, Use up to 4 daily, [facility] #[id number], Supply, 180, cm, 09/12/23 13:35:00 EST, Height/Length Dosing, 149.8, kg, 09/12/23 13:35:00 EST, Weight Dosing Start: 09-16-2023 lancets, See Instructions, 100 EA, 11, test blood sugar tid dx E11.9 on insulin, [facility] #[id number], Supply, 180, cm, 09/12/23 13:35:00 EST, Height/Length Dosing, 149.8, kg, 09/12/23 13:35:00 EST, Weight Dosing Start: 09-16-2023 Glucometer test strips, See Instructions, 100 strip(s), 11, Test TID DX E11.40 on insulin, [facility] #[id number], Supply, 180, cm, 09/12/23 13:35:00 EST, Height/Length Dosing, 149.8, kg, 09/12/23 13:35:00 EST, Weight Dosing Start: 09-16-2023 Insulin Pen Need les 31g x 8 mm, See Instructions, 450 EA, 4, Use up to 4 daily, [facility] #[id number], Supply, 180, cm, 09/12/23 13:35:00 EST, Height/Length Dosing, 149.8, kg, 09/12/23 13:35:00 EST, Weight Dosing Start: 09-16-2023 lancets, See Instructions, 100 EA, 11, test blood sugar tid dx E11.9 on insulin, [facility] #[id number], Supply, 180, cm, 09/12/23 13:35:00 EST, Height/Length Dosing, 149.8, kg, 09/12/23 13:35:00 EST, Weight Dosing Start: 09-16-2023 Glucometer test strips, See Instructions, 100 strip(s), 11, Test TID DX E11.40 on insulin, [facility] #[id number], Supply, 180, cm, 09/12/23 13:35:00 EST, Height/Length Dosing, 149.8, kg, 09/12/23 13:35:00 EST, Weight Dosing Start: 09-16-2023 Insulin Pen Need les 31g x 8 mm, See Instructions, 450 EA, 4, Use up to 4 daily, [facility] #[id number], Supply, 180, cm, 09/12/23 13:35:00 EST, Height/Length Dosing, 149.8, kg, 09/12/23 13:35:00 EST, Weight Dosing Start: 09-16-2023 lancets, See Instructions, 100 EA, 11, test blood sugar tid dx E11.9 on insulin, [facility] #[id number], Supply, 180, cm, 09/12/23 13:35:00 EST, Height/Length Dosing, 149.8, kg, 09/12/23 13:35:00 EST, Weight Dosing Start: 09-16-2023 Glucometer test strips, See Instructions, 100 strip(s), 11, Test TID DX E11.40 on insulin, [facility] #[id number], Supply, 180, cm, 09/12/23 13:35:00 EST, Height/Length Dosing, 149.8, kg, 09/12/23 13:35:00 EST, Weight Dosing Start: 09-16-2023 Insulin Pen Need les 31g x 8 mm, See Instructions, 450 EA, 4, Use up to 4 daily, [facility] #[id number], Supply, 180, cm, 09/12/23 13:35:00 EST, Height/Length Dosing, 149.8, kg, 09/12/23 13:35:00 EST, Weight Dosing Start: 09-16-2023 lancets, See Instructions, 100 EA, 11, test blood sugar tid dx E11.9 on insulin, [facility] #[id number], Supply, 180, cm, 09/12/23 13:35:00 EST, Height/Length Dosing, 149.8, kg, 09/12/23 13:35:00 EST, Weight Dosing Start: 09-16-2023 Glucometer test strips, See Instructions, 100 strip(s), 11, Test TID DX E11.40 on insulin, [facility] #[id number], Supply, 180, cm, 09/12/23 13:35:00 EST, Height/Length Dosing, 149.8, kg, 09/12/23 13:35:00 EST, Weight Dosing Start: 09-16-2023 Insulin Pen Need les 31g x 8 mm, See Instructions, 450 EA, 4, Use up to 4 daily, [facility] #[id number], Supply, 180, cm, 09/12/23 13:35:00 EST, Height/Length Dosing, 149.8, kg, 09/12/23 13:35:00 EST, Weight Dosing Start: 09-16-2023 lancets, See Instructions, 100 EA, 11, test blood sugar tid dx E11.9 on insulin, [facility] #[id number], Supply, 180, cm, 09/12/23 13:35:00 EST, Height/Length Dosing, 149.8, kg, 09/12/23 13:35:00 EST, Weight Dosing Start: 09-16-2023 Glucometer test strips, See Instructions, 100 strip(s), 11, Test TID DX E11.40 on insulin, [facility] #[id number], Supply, 180, cm, 09/12/23 13:35:00 EST, Height/Length Dosing, 149.8, kg, 09/12/23 13:35:00 EST, Weight Dosing Start: 09-16-2023 Insulin Pen Need les 31g x 8 mm, See Instructions, 450 EA, 4, Use up to 4 daily, [facility] #[id number], Supply, 180, cm, 09/12/23 13:35:00 EST, Height/Length Dosing, 149.8, kg, 09/12/23 13:35:00 EST, Weight Dosing Start: 09-16-2023 lancets, See Instructions, 100 EA, 11, test blood sugar tid dx E11.9 on insulin, [facility] #[id number], Supply, 180, cm, 09/12/23 13:35:00 EST, Height/Length Dosing, 149.8, kg, 09/12/23 13:35:00 EST, Weight Dosing Start: 09-16-2023 Glucometer test strips, See Instructions, 100 strip(s), 11, Test TID DX E11.40 on insulin, [facility] #[id number], Supply, 180, cm, 09/12/23 13:35:00 EST, Height/Length Dosing, 149.8, kg, 09/12/23 13:35:00 EST, Weight Dosing Start: 09-16-2023 Insulin Pen Need les 31g x 8 mm, See Instructions, 450 EA, 4, Use up to 4 daily, [facility] #[id number], Supply, 180, cm, 09/12/23 13:35:00 EST, Height/Length Dosing, 149.8, kg, 09/12/23 13:35:00 EST, Weight Dosing Start: 09-16-2023 lancets, See Instructions, 100 EA, 11, test blood sugar tid dx E11.9 on insulin, [facility] #[id number], Supply, 180, cm, 09/12/23 13:35:00 EST, Height/Length Dosing, 149.8, kg, 09/12/23 13:35:00 EST, Weight Dosing Start: 09-16-2023 Glucometer test strips, See Instructions, 100 strip(s), 11, Test TID DX E11.40 on insulin, [facility] #[id number], Supply, 180, cm, 09/12/23 13:35:00 EST, Height/Length Dosing, 149.8, kg, 09/12/23 13:35:00 EST, Weight Dosing Start: 09-16-2023 Insulin Pen Need les 31g x 8 mm, See Instructions, 450 EA, 4, Use up to 4 daily, [facility] #[id number], Supply, 180, cm, 09/12/23 13:35:00 EST, Height/Length Dosing, 149.8, kg, 09/12/23 13:35:00 EST, Weight Dosing Start: 09-16-2023 lancets, See Instructions, 100 EA, 11, test blood sugar tid dx E11.9 on insulin, [facility] #[id number], Supply, 180, cm, 09/12/23 13:35:00 EST, Height/Length Dosing, 149.8, kg, 09/12/23 13:35:00 EST, Weight Dosing Start: 09-16-2023 Glucometer test strips, See Instructions, 100 strip(s), 11, Test TID DX E11.40 on insulin, [facility] #[id number], Supply, 180, cm, 09/12/23 13:35:00 EST, Height/Length Dosing, 149.8, kg, 09/12/23 13:35:00 EST, Weight Dosing Start: 09-16-2023 Insulin Pen Need les 31g x 8 mm, See Instructions, 450 EA, 4, Use up to 4 daily, [facility] #[id number], Supply, 180, cm, 09/12/23 13:35:00 EST, Height/Length Dosing, 149.8, kg, 09/12/23 13:35:00 EST, Weight Dosing Start: 09-16-2023 lancets, See Instructions, 100 EA, 11, test blood sugar tid dx E11.9 on insulin, [facility] #[id number], Supply, 180, cm, 09/12/23 13:35:00 EST, Height/Length Dosing, 149.8, kg, 09/12/23 13:35:00 EST, Weight Dosing Start: 09-16-2023 Glucometer test strips, See Instructions, 100 strip(s), 11, Test TID DX E11.40 on insulin, [facility] #[id number], Supply, 180, cm, 09/12/23 13:35:00 EST, Height/Length Dosing, 149.8, kg, 09/12/23 13:35:00 EST, Weight Dosing Start: 09-16-2023 Insulin Pen Need les 31g x 8 mm, See Instructions, 450 EA, 4, Use up to 4 daily, [facility] #[id number], Supply, 180, cm, 09/12/23 13:35:00 EST, Height/Length Dosing, 149.8, kg, 09/12/23 13:35:00 EST, Weight Dosing Start: 09-16-2023 lancets, See Instructions, 100 EA, 11, test blood sugar tid dx E11.9 on insulin, [facility] #[id number], Supply, 180, cm, 09/12/23 13:35:00 EST, Height/Length Dosing, 149.8, kg, 09/12/23 13:35:00 EST, Weight Dosing Start: 09-16-2023 Glucometer test strips, See Instructions, 100 strip(s), 11, Test TID DX E11.40 on insulin, [facility] #[id number], Supply, 180, cm, 09/12/23 13:35:00 EST, Height/Length Dosing, 149.8, kg, 09/12/23 13:35:00 EST, Weight Dosing Start: 09-16-2023 Insulin Pen Need les 31g x 8 mm, See Instructions, 450 EA, 4, Use up to 4 daily, [facility] #[id number], Supply, 180, cm, 09/12/23 13:35:00 EST, Height/Length Dosing, 149.8, kg, 09/12/23 13:35:00 EST, Weight Dosing Start: 09-16-2023 lancets, See Instructions, 100 EA, 11, test blood sugar tid dx E11.9 on insulin, [facility] #[id number], Supply, 180, cm, 09/12/23 13:35:00 EST, Height/Length Dosing, 149.8, kg, 09/12/23 13:35:00 EST, Weight Dosing Start: 09-16-2023 Glucometer test strips, See Instructions, 100 strip(s), 11, Test TID DX E11.40 on insulin, [facility] #[id number], Supply, 180, cm, 09/12/23 13:35:00 EST, Height/Length Dosing, 149.8, kg, 09/12/23 13:35:00 EST, Weight Dosing Start: 09-16-2023 Insulin Pen Need les 31g x 8 mm, See Instructions, 450 EA, 4, Use up to 4 daily, [facility] #[id number], Supply, 180, cm, 09/12/23 13:35:00 EST, Height/Length Dosing, 149.8, kg, 09/12/23 13:35:00 EST, Weight Dosing Start: 09-16-2023 lancets, See Instructions, 100 EA, 11, test blood sugar tid dx E11.9 on insulin, [facility] #[id number], Supply, 180, cm, 09/12/23 13:35:00 EST, Height/Length Dosing, 149.8, kg, 09/12/23 13:35:00 EST, Weight Dosing Start: 09-16-2023 Glucometer test strips, See Instructions, 100 strip(s), 11, Test TID DX E11.40 on insulin, [facility] #[id number], Supply, 180, cm, 09/12/23 13:35:00 EST, Height/Length Dosing, 149.8, kg, 09/12/23 13:35:00 EST, Weight Dosing Start: 09-16-2023 Insulin Pen Need les 31g x 8 mm, See Instructions, 450 EA, 4, Use up to 4 daily, [facility] #[id number], Supply, 180, cm, 09/12/23 13:35:00 EST, Height/Length Dosing, 149.8, kg, 09/12/23 13:35:00 EST, Weight Dosing Start: 09-16-2023 lancets, See Instructions, 100 EA, 11, test blood sugar tid dx E11.9 on insulin, [facility] #[id number], Supply, 180, cm, 09/12/23 13:35:00 EST, Height/Length Dosing, 149.8, kg, 09/12/23 13:35:00 EST, Weight Dosing Start: 09-16-2023 Glucometer test strips, See Instructions, 100 strip(s), 11, Test TID DX E11.40 on insulin, [facility] #[id number], Supply, 180, cm, 09/12/23 13:35:00 EST, Height/Length Dosing, 149.8, kg, 09/12/23 13:35:00 EST, Weight Dosing Start: 09-16-2023 Insulin Pen Need les 31g x 8 mm, See Instructions, 450 EA, 4, Use up to 4 daily, [facility] #[id number], Supply, 180, cm, 09/12/23 13:35:00 EST, Height/Length Dosing, 149.8, kg, 09/12/23 13:35:00 EST, Weight Dosing Start: 09-16-2023 lancets, See Instructions, 100 EA, 11, test blood sugar tid dx E11.9 on insulin, [facility] #[id number], Supply, 180, cm, 09/12/23 13:35:00 EST, Height/Length Dosing, 149.8, kg, 09/12/23 13:35:00 EST, Weight Dosing Start: 09-16-2023 Glucometer test strips, See Instructions, 100 strip(s), 11, Test TID DX E11.40 on insulin, [facility] #[id number], Supply, 180, cm, 09/12/23 13:35:00 EST, Height/Length Dosing, 149.8, kg, 09/12/23 13:35:00 EST, Weight Dosing Start: 09-16-2023 Insulin Pen Need les 31g x 8 mm, See Instructions, 450 EA, 4, Use up to 4 daily, [facility] #[id number], Supply, 180, cm, 09/12/23 13:35:00 EST, Height/Length Dosing, 149.8, kg, 09/12/23 13:35:00 EST, Weight Dosing Start: 09-16-2023 lancets, See Instructions, 100 EA, 11, test blood sugar tid dx E11.9 on insulin, [facility] #[id number], Supply, 180, cm, 09/12/23 13:35:00 EST, Height/Length Dosing, 149.8, kg, 09/12/23 13:35:00 EST, Weight Dosing Start: 09-16-2023 Glucometer test strips, See Instructions, 100 strip(s), 11, Test TID DX E11.40 on insulin, [facility] #[id number], Supply, 180, cm, 09/12/23 13:35:00 EST, Height/Length Dosing, 149.8, kg, 09/12/23 13:35:00 EST, Weight Dosing Start: 09-16-2023 Insulin Pen Need les 31g x 8 mm, See Instructions, 450 EA, 4, Use up to 4 daily, [facility] #[id number], Supply, 180, cm, 09/12/23 13:35:00 EST, Height/Length Dosing, 149.8, kg, 09/12/23 13:35:00 EST, Weight Dosing Start: 09-16-2023 lancets, See Instructions, 100 EA, 11, test blood sugar tid dx E11.9 on insulin, [facility] #[id number], Supply, 180, cm, 09/12/23 13:35:00 EST, Height/Length Dosing, 149.8, kg, 09/12/23 13:35:00 EST, Weight Dosing Start: 09-16-2023 Glucometer test strips, See Instructions, 100 strip(s), 11, Test TID DX E11.40 on insulin, [facility] #[id number], Supply, 180, cm, 09/12/23 13:35:00 EST, Height/Length Dosing, 149.8, kg, 09/12/23 13:35:00 EST, Weight Dosing Start: 09-16-2023 Insulin Pen Need les 31g x 8 mm, See Instructions, 450 EA, 4, Use up to 4 daily, [facility] #[id number], Supply, 180, cm, 09/12/23 13:35:00 EST, Height/Length Dosing, 149.8, kg, 09/12/23 13:35:00 EST, Weight Dosing Start: 09-16-2023 lancets, See Instructions, 100 EA, 11, test blood sugar tid dx E11.9 on insulin, [facility] #[id number], Supply, 180, cm, 09/12/23 13:35:00 EST, Height/Length Dosing, 149.8, kg, 09/12/23 13:35:00 EST, Weight Dosing Start: 09-16-2023 [id number] Start: 05-05-2024 End: 06-21-2025 Glucometer test strips, See Instructions, 100 strip(s), 11, Test TID DX E11.40 on insulin, [facility] #[id number], Supply, 180, cm, 09/12/23 13:35:00 EST, Height/Length Dosing, 149.8, kg, 09/12/23 13:35:00 EST, Weight Dosing Start: 09-16-2023 Insulin Pen Need les 31g x 8 mm, See Instructions, 450 EA, 4, Use up to 4 daily, [facility] #[id number], Supply, 180, cm, 09/12/23 13:35:00 EST, Height/Length Dosing, 149.8, kg, 09/12/23 13:35:00 EST, Weight Dosing Start: 09-16-2023 lancets, See Instructions, 100 EA, 11, test blood sugar tid dx E11.9 on insulin, [facility] #[id number], Supply, 180, cm, 09/12/23 13:35:00 EST, Height/Length Dosing, 149.8, kg, 09/12/23 13:35:00 EST, Weight Dosing Start: 09-16-2023 Glucometer test strips, See Instructions, 100 strip(s), 11, Test TID DX E11.40 on insulin, [facility] #[id number], Supply, 180, cm, 09/12/23 13:35:00 EST, Height/Length Dosing, 149.8, kg, 09/12/23 13:35:00 EST, Weight Dosing Start: 09-16-2023 Insulin Pen Need les 31g x 8 mm, See Instructions, 450 EA, 4, Use up to 4 daily, [facility] #[id number], Supply, 180, cm, 09/12/23 13:35:00 EST, Height/Length Dosing, 149.8, kg, 09/12/23 13:35:00 EST, Weight Dosing Start: 09-16-2023 lancets, See Instructions, 100 EA, 11, test blood sugar tid dx E11.9 on insulin, [facility] #[id number], Supply, 180, cm, 09/12/23 13:35:00 EST, Height/Length Dosing, 149.8, kg, 09/12/23 13:35:00 EST, Weight Dosing Start: 09-16-2023 Glucometer test strips, See Instructions, 100 strip(s), 11, Test TID DX E11.40 on insulin, [facility] #[id number], Supply, 180, cm, 09/12/23 13:35:00 EST, Height/Length Dosing, 149.8, kg, 09/12/23 13:35:00 EST, Weight Dosing Start: 09-16-2023 Insulin Pen Need les 31g x 8 mm, See Instructions, 450 EA, 4, Use up to 4 daily, [facility] #[id number], Supply, 180, cm, 09/12/23 13:35:00 EST, Height/Length Dosing, 149.8, kg, 09/12/23 13:35:00 EST, Weight Dosing Start: 09-16-2023 lancets, See Instructions, 100 EA, 11, test blood sugar tid dx E11.9 on insulin, [facility] #[id number], Supply, 180, cm, 09/12/23 13:35:00 EST, Height/Length Dosing, 149.8, kg, 09/12/23 13:35:00 EST, Weight Dosing Start: 09-16-2023 USE TO TEST BLOO D SUGARS THREE TIMES A DAY. [id number] Start: 12-05-2024 End: 03-13-2025 Pen Needle 31G x 6mm, See Instructions, 100 EA, 1, Pen Needle 31G x 6mm, [email or web address] #[id number], Supply, 182, cm, 12/20/24 13:40:00 EDT, Height/Length Dosing, 118.4, kg, 12/20/24 13:40:00 EDT, Weight Dosing Start: 12-21-2024 USE TO TEST BLOO D SUGARS THREE TIMES A DAY. [id number] Start: 03-13-2025 Goals Date Patient Goal Desired Activity /State 12-03-2019 Functional Status Date Assessment Result Facility 12-20-2024 Functional Status N/A [facility] 12-20-2024 Functional Status [facility] 12-04-2024 Patient Health Questionnaire 2 item (PHQ-2) [Reported] [facility] 12-02-2024 Functional Status N/A [facility] 07-09-2024 Functional Status N/A [facility] 06-23-2024 Functional Status N/A [facility] 02-28-2024 Functional Status N/A [facility] 02-09-2024 Functional Status N/A [facility] 01-15-2024 Functional Status N/A [facility] 11-20-2023 Functional Status N/A [facility] 11-17-2023 Functional status Patient is Pro gressing Toward [facility] Work Phone: 11-11-2023 Functional Status N/A [facility] 10-30-2023 Functional Status N/A [facility] 10-18-2023 Functional Status N/A [facility] 10-15-2023 Functional Status N/A [facility] 10-12-2023 Functional status Patient at Baseline [facility] Work Phone: 09-24-2023 Functional Status N/A [facility] 09-17-2023 Functional Status N/A [facility] 08-06-2023 Functional Status N/A [facility] 06-21-2023 Functional status Patient at Baseline [facility] Work Phone: 06-11-2023 Functional Status N/A [facility] 06-11-2023 Functional Status [facility] 05-22-2023 Functional Status N/A [facility] 05-08-2023 Functional Status No [facility] 09-13-2022 Functional Status N/A [facility] 08-04-2022 Functional Status N/A [facility] 03-29-2022 Functional Status N/A [facility] 03-08-2022 Functional Status N/A [facility] Mental Status Date Assessment Result Facility 11-17-2023 Cognitive function Cognitive Sta tus Patient at [facility] Work Phone: 10-12-2023 Cognitive function Cognitive Sta tus Patient at [facility] Work Phone: 06-21-2023 Cognitive function Cognitive Sta tus Patient at [facility] Work Phone: Clinical Notes 12-28-2021 [...] working out. He thinks might be [facility] 03-24-2025 Miscellaneous Notes Pt called into the office, he wants to cancel the nurse that is coming to his apartment. He said it is not working out. He thinks might be [employer] documented in this encounter [facility] 03-13-2025 History of Present illness Narrative Images [...] Flowsheet Row Patient Outreach from 03/11/2025 in [facility] with Grecia Mcneil LPN Hospital Information ED, Hospital or Usp Facility Discharge? Hospital Patient has been contacted within two business days of discharge Yes Diagnosis Electorolyte abnormality from severe hyperglycemia, left leg cramps Discharge Date 03/07/25 Discharged To: Home Setting Discharge Hospital [facility] Engagement Admission Date 03/05/25 Medications Discharge [...] monitor. No change in regimen. Morbid obesity ([facility]) - continue to monitor weight BMI 38.0-38.9,adult Follow up if symptoms worsen or fail to improve. documented in this encounter [facility] 03-07-2025 Note Discharge Summary Admission and Discharge [...] 2 days. He was subsequently admitted to [facility] with left leg muscle spasm secondary [...] speech normal Ps (more content not included)... [facility] Comment on above: Result Comment: Elec [...] as prior. No further PT services needed [facility] 03-06-2025 Note Progress Note-Physic abundio Assessment/Plan [...] hyperglycemia. Resolved. Was treated with orphenadrine. Ordered: [facility] Hospital Care/Day Moderate 35 Minutes 71273 2. Type 2 diabetes mellitus with hyperosmolar nonketotic hyperglycemia (E11.00: Type 2 diabetes mellitus with hyperosmolarity without nonketotic hyperglycemic-hyperosmolar coma ([facility])) Acute hyperosmolar nonketotic hyperglycemia???present on admission. Secondary to noncompliance with medication. Treated with IV insulin drip and IV fluid. Hemoglobin A1c 11.8%. Will start patient on long-acting insulin, regular insulin and sliding scale insulin. Ordered: [facility] Hospital Care/Day Moderate 35 Minutes 62061 3. Pseudohyponatremia (R79.89: Other specified abnormal findings of blood chemistry) Secondary to hypoglycemia. Resolved. Ordered: [facility] Hospital Care/Day Moderate 35 Minutes 06645 4. CKD (chronic kidney disease) (N18.9: Chronic kidney disease, unspecified) Chronic kidney disease stage III???back to baseline. Ordered: [facility] Hospital Care/Day Moderate 35 Minutes 57676 5. Hypertension (I10: Essential (primary) hypertension) Blood [...] made to ensure accuracy. However inadvertent computerized windows software engineer errors may be present. Jordan Macario. Hospitalist. [...] no deformity. Gastrointestin (more content not included)... [facility] Comment on above: Result Comment: Elec [...] 20:15:00) Lymph Auto: 17.9 % (03/05/25 20:15:00) Stanly Auto: 6.5 % (03/05/25 20:15:00) Eos Auto: 2.4 % (03/05/25 20:15:00) Basophil Auto: 0.9 % (03/05/25 20:15:00) Neutro Absolute: 5 E9/L (03/05/25 20:15:00) Lymph Absolute: 1.2 E9/L (03/05/25 20:15:00) Stanly Absolute: 0.4 E9/L (03/05/25 20:15:00) Eos Absolute: [...] (03/05/25 20:15:00) B (more content not included)... [facility] Comment on above: Result Comment: Elec tronically Signed By: Erick LYMAN, Jigna\.br\Date and Time Signed: 03/05/25 23:22 EDT 02-05-2025 History of Present illness Narrative Images from the original note were not included. Subjective Patient ID: Nicole Lora is a 65 y.o. male who presents for No chief complaint on file.. HPI Pt here for follow up. Has been working with [employer] for possible scooter. States they have been [...] weakness, bilateral - Continue to work with [employer] company Essential (primary) hypertension Stable, continue to monitor. No change in regimen. Difficulty walking - as above Type 2 diabetes mellitus with hyperglycemia, with long-term current use of insulin (HCC) - continue to follow w/ endocrinology Long-term insulin use (HCC) Morbid obesity ([facility]) - continue to monitor weight BMI 36.0-36.9,adult documented in this encounter [facility] 02-05-2025 Telephone encounter Note Brittani from called and stated that he's been unbalanced, having a hard time sleeping, his blood sugar is at 155. Pt states that is too low for him. [facility] 02-05-2025 Miscellaneous Notes Brittani from called and stated that he's been unbalanced, having a hard time sleeping, his blood sugar is at 155. Pt states that is too low for him. documented in this encounter [facility] 12-25-2024 History of Present illness Narrative Nicole [...] mg, Every 24 hours Continuous Blood Gluc Newspaper Vendor (FreeStyle Sage 3 [place]) device 1 each, Does not apply, Continuous Continuous Blood Gluc Sensor (FreeStyle Sage 3 Sensor) misc 1 each, Does not apply, Every 14 days doxycycline (VIBRAMYCIN) 100 mg, 2 times daily DULoxetine (CYMBALTA) 60 mg, Daily Fiasp FlexTouch 100 UNIT/ML injection inject PLUS ISS #2 (EXPECT DAILY DOSE OF 80 UNITS) gabapentin (NEURONTIN) 600 mg, Oral, 3 times daily glucose blood (Contrail SystemsTouch Verio) test strip USE TO TEST BLOOD [...] History: Diagnosis Date Acute hypoxemic respiratory failure ([facility]) Acute on chronic respiratory failure with hypercapnia ([facility]) AMY (acute kidney injury) ([facility]) Arthritis Asthma Cataract Chronic kidney disease, stage 3b ([facility]) ([facility]) Diabetes ([facility]) Diabetes mellitus with neuropathy ([facility]) Dietary counseling and surveillance Dry eyes GERD (gastroesophageal reflux disease) Hypertension ([facility]) Lymphedema of both lower extremities 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 mellitus ([facility]) Morbid obesity with body mass index (BMI) of 40.0 to 49.9 ([facility]) Onychomycosis Pneumonia 06/19/2024 [facility] (pulmonary valve disease) Type 2 diabetes mellitus with hyperglycemia ([facility]) Vitamin D deficiency, unspecified Past [...] hyperglycemia, with long-term current use of insulin ([facility]) - gabapentin (Neurontin) 600 MG [...] 3 times a day. Insulin long-term use ([facility]) Vitamin D deficiency Encounter for dietary consultation Hyperlipemia, mixed ([facility]) Primary hypertension ([facility]) Follow up in about 6 months (around 06/27/2025). documented in this encounter [facility] 12-21-2024 Hospital Discharge instructions Patient Education 12/21/2024 [...] concerns. Where to find more information The [place] Diabetes Association: diabetes.org The Association of Diabetes [...] provider. Document Revised: 06/23/2023 Document Reviewed: 06/23/2023 [employer] Patient Education 2023 [employer]. 12/21/2024 14:26:35 Correction Insulin Correction Insulin Correction [...] vacation, changing your diet, or holidays. ?New dckx-bpc-snrpulk or prescription medicines. ?Illness, stress, or anxiety. [...] provider. Document Revised: 08/12/2021 Document Reviewed: 08/12/2021 [employer]ob Patient Education 2023 [employer]. 12/21/2024 14:25:51 Diabetic Neuropathy Diabetic Neuropathy Diabetic [...] provider. Document Revised: 12/17/2020 Document Reviewed: 12/17/2020 [employer]ob Patient Education 2023 [employer]. Follow Up Care 12/20/2024 13:30:13 With:KAYLA SWEENEY Address: [address] [place] [address]- Business (1) When: Unknown Comments:Follow as scheduled in December 2024 With:Mounika Brooke Address: [place] [address]- Business (1) When:7 to 10 days Comments:Call for followup appointment [facility] 12-21-2024 Note Discharge Summary Admission and Discharge [...] 3rd toes, and hypertension who presented to [facility], ER with chief complaint of left leg [...] he has not picked up from his counselor manager yet. His glucose was slowly improving with [...] losartan, which I confirmed he has with [facility] Refilled glucometer, test strips, lancets???confirmed with [facility] that they can fill this and his insurance is covering it Refilled regular insulin at lower dose to prevent lows as this will likely be a new medication for him since he has not been compliant with his regimen. Previously Dr. wSeeney had prescribed 50 units 3 times daily. [...] defer management of his diabetes to his counselor manager if he is compliant with follow-up. He [...] no tenderness Eye (more content not included)... [facility] Comment on above: Result Comment: Elec [...] SWEENEY [address] [place] [address]- Business (1) Additional Instructions: Follow as scheduled in December 2024 Mounika Brooke Within 7 to [address] [place] [address]- Business (1) Additional Instructions: Call for followup [...] 3rd toes, and hypertension who presented to [facility], ER with chief complaint of left leg [...] August 2024. Follows with Dr. Sweeney in [place] Status post 2 L IV fluid bolus [...] Panel Initial Hospital Care/Day Moderate 55 Minutes 27587 2. Leg muscle spasm (M62.838: Other muscle [...] state. Recommend weight loss. Defer to his counselor manager to ensure is well versed in therapies [...] BID, # 20 cap(s), Refills(s) 0, Pharmacy: [id number], 183, cm, 06/23/24 13:45:00 EST, Height/Length Dosing, [...] with Cult Rflx XR Chest Single View [facility] 05-03-2025 NoteInterdisciplinary Note - PT PT Treatment [...] future falls. Will continue to follow while inpatient.[facility]05-03-2025 NoteInterdisciplinary Note - OT Pt is seen this date for OT evaluation. AMPAC score: 20/24. pt presents with ability to complete functional transfers and short mobility at [facility] level with FWW for support, limited by spasms behind L knee, and decreased activity tolerance. OT to continue to follow for treatment. Recommending HH atd/c.[facility]05-02-2025 NoteHistory and Physical Chief Complaint pt. [...] 3rd toes, and hypertension who presented to [facility], with chief complaint of left leg spasms.He [...] confusion. He states that he follows with counselor manager Dr. Sweeney in [place]. He states that he only takes insulin, [...] 6.2 E9/L (12/20/24 1 (more content not included)...[facility]Result Comment: Electronically Signed By: Toni Gutierrez III, DO.br\Date and Time Signed: 12/20/24 19:04 [id number] NoteED Patient Education Note Endocrinology Hyperglycemia Hyperglycemia [...] instructions at home: General instructions ??? Take alza-jws-zuinbbn and prescription medicines only as told by [...] need help with this (more content not included)...[facility]04-30-2025 History of Present illness Narrative* Mone Mcguire, PT - 12/18/2024 1:00 PM EDT Reason for Appointment [facility] from Grace Brooke MD [...] notes on w/c assessment documented in this encounterSaint Luke's [id number] Telephone encounter Note* Telephone Encounter - Cooper Bradford - 12/10/2024 1:35 PM EDT [facility] He stopped in office to Pt is in need of a chair, there is no note added in the last office visit could that be added to the note. He should be seen next week unless he answers his phone today. [facility] HospitalIecszklacf45-51-6697 Miscellaneous Notes* Telephone Encounter - Cooper Bradford - 12/10/2024 1:35 PM EDT [facility] He stopped in office to Pt is in need of a chair, there is no note added in the last office visit could that be added to the note. He should be seen next week unless he answers his phone today. documented in this encounterSaint Luke's HospitalVjacqeuvqi00-70-0622 History of Present illness Narrative* Mounika Brooke [...] Flowsheet Row Patient Outreach from 12/04/2024 in [facility] with Kristi Canales LPN Hospital Information ED, Hospital or Usp Facility Discharge? ED Patient has been contacted within 2 days of being seen in the ED Yes Diagnosis Hyperglycemic, Bronchitis Discharge Date 12/02/24 [Left AMA] Discharged To: Home Setting Discharge [facility] Engagement Call Start Time 0940 Admission Date [...] diabetes mellitus with diabetic chronic kidney disease ([facility]HCC) Chronic kidney disease, stage 3b (HCC) ([facility]/HCC) Essential (primary) hypertension ([facility]HCC) Acquired absence of left foot ([facility]) Reviewed ED course with pt. Encouraged pt to continue medications as prescribed. No changes in chronic medications. Encouraged continued follow up with specialists. Due to weakness and difficulty walking, discussed need for further assistance. Follow up if symptoms worsen or fail to improve. documented in this encounterSaint Luke's [id number] Hospital Discharge instructions Patient Education 12/02/2024 15:24:12 [...] condition. Follow these instructions at home: Take hxbd-dek-ezunund and prescription medicines only as told by [...] and water are not available, use hand cigar making machine operator. Avoid contact with people who have [...] it is easier to cough up. Take flhk-fkv-mvpqbpb and prescription medicines only as told by [...] provider. Document Revised: 11/17/2022 Document Reviewed: 12/08/2021 [employer] Patient Education 2023 [employer]. 12/02/2024 15:24:12 Type 2 Diabetes Mellitus, Self-Care, Adult, Jebh-fm-Silx Type 2 Diabetes Mellitus, Self-Care, Adult When [...] tell you how to do this. Take ygqb-oep-zgqdqil and prescription medicines only as told by [...] for cuts, bruises, redness, blisters, or sores. [place] your teeth and gums two times a [...] more information about diabetes, please go to: [place] Diabetes Association: www.diabetes.org [place] Association of Diabetes Care and Education Specialists: [...] provider. Document Revised: 11/01/2021 Document Reviewed: 11/01/2021 VMob Patient Education 2023 [employer]. 12/02/2024 15:24:12 Hyperglycemia Hyperglycemia Hyperglycemia occurs when [...] these instructions at home: General instructions Take fiqq-swu-szkdixa and prescription medicines only as told by [...] alert jewelry. Where to find more information [place] Diabetes Association: www.diabetes.org Contact a health care [...] provider. Document Revised: 05/20/2021 Document Reviewed: 05/21/2021 VMob Patient Education 2023 [employer]. Follow Up Care 12/02/2024 12:36:28 With:Mounika Brooke Address: [address] [place] [address]- [facility] (1) When:12/05/2024 15:08:13 Comments:Call for diagnosis based follow up [facility] 04-14-2025 NoteED Patient Education Note Endocrinology Type [...] you how to do this. ??? Take btec-uvk-vgmcgio and prescription medicines only as told by [...] mL), one 5 oz (more content not included)...[facility]01-15-2025 History of Present illness Narrative* Kayla [...] twice a day. Blood sugar in our ; A1C 11. SUBJECTIVE: MEDICATIONS: Current Outpatient Medications Medication Instructions albuterol HFA 90 mcg/act inhaler 2 puffs, Every 4 hours PRN amLODIPine (Norvasc) 10 MG tablet 1 tablet, Daily atorvastatin (LIPITOR) 40 mg, Every 24 hours Continuous Blood Gluc Newspaper Vendor (FreeStyle Sage 3 [place]) device 1 each, Does not apply, Continuous [...] History: Diagnosis Date Acute hypoxemic respiratory failure ([facility]) Acute on chronic respiratory failure with hypercapnia ([facility]) AMY (acute kidney injury) ([facility]) Arthritis Asthma ([facility]) Cataract Chronic kidney disease, stage 3b (HCC) ([facility]) Diabetes ([facility]) Diabetes mellitus with neuropathy ([facility]) Dietary counseling and surveillance Dry eyes GERD (gastroesophageal reflux disease) Hypertension ([facility]) Lymphedema of both lower extremities 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 documented in this encounterSaint Luke's HospitalGrltnvbsvk95-85-1720 Telephone encounter Note* Telephone Encounter - Mounika Brooke MD - 08/06/2024 10:26 AM EST Ok to send [facility] HospitalJisewuvqkw11-41-1729 Miscellaneous Notes* Telephone Encounter - Mounika Brooke MD - 08/06/2024 10:26 AM EST Ok to send * Telephone Encounter - Cooper Bradford - 08/06/2024 8:48 AM EST [facility] called they need this information sent for to them for the Referral on the Hyperbaric Oxygen Treatment A1C, pvr, and last 30day of notes on the wound Please send to fax [phone] to [place] documented in this encounterSaint Luke's HospitalZehzlcbrdy45-67-5999 Telephone encounter Note* Telephone Encounter - Cooper Bradford - 08/06/2024 8:48 AM EST [facility] called they need this information sent for to them for the Referral on the Hyperbaric Oxygen Treatment A1C, pvr, and last 30day of notes on the wound Please send to fax [phone] to [place] HospitalCmsqqqzsyb49-48-8610 NoteTime Out 07/22/2024. 3:03 PM. Confirmed correct patient, procedure, site, and patient consented. Anesthesia Topical anesthesia was used. Anesthetic medications included Proparacaine 0.5%. Procedure Preparation included 5% betadine to ocular surface. A 30 gauge needle was used. Injection: 0.3 mg ranibizumab 0.3 MG/0.05ML Route: Intravitreal, Site: Left Eye [facility]: 36172-645-43, Lot: [id number], Expiration date: 04/29/2026, Waste: 0 mL Post-op [...] with increased pain, redness, decreased vision or concerns.[facility] HospitalQovlakkiwe68-80-0457 History of Present illness Narrative* Perlita Meeks MD - 07/22/2024 2:15 PM EST Assessment/Plan documented in this encounterSaint Luke's HospitalHfwdhoydvb65-15-2372 History of Present illness Narrative* Kayla Sweeney [...] twice a day. Blood sugar in our [id number]; A1C 11. SUBJECTIVE: MEDICATIONS: Current Outpatient Medications Medication Instructions albuterol HFA 90 mcg/act inhaler 2 puffs, Every 4 hours PRN atorvastatin (LIPITOR) 40 mg, Every 24 hours Continuous Blood Gluc Newspaper Vendor (FreeStyle Sage 3 [place]) device 1 each, Does not apply, Continuous [...] History: Diagnosis Date Acute hypoxemic respiratory failure ([facility]) Acute on chronic respiratory failure with hypercapnia ([facility]) AMY (acute kidney injury) ([facility]) Arthritis Asthma ([facility]) Cataract Chronic kidney disease, stage 3b (HCC) ([facility]) Diabetes ([facility] Diabetes mellitus with neuropathy ([facility]) Dry eyes GERD (gastroesophageal reflux disease) Hypertension ([facility]) Lymphedema of both lower extremities 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 documented in this encounterSaint Luke's HospitalPjjwxbguqf01-41-8241 History of Present illness Narrative* Mounika Brooke [...] Brooke MD Hospital Information ED, Hospital or Usp Facility Discharge? ED Patient has been contacted within 1 week of being seen in the ED Yes Discharge Date 07/09/24 Discharged To: Home Setting Discharge [facility] Engagement Admission Date 07/09/24 Medications Discharge medications [...] No follow-ups on file. documented in this encounterSaint Luke's [id number] Hospital Discharge instructions Patient Education 07/09/2024 16:21:24 [...] told by your health care provider. Take xzvy-ezl-aihzbro and prescription medicines only as told by [...] provider. Document Revised: 04/14/2022 Document Reviewed: 04/14/2022 [employer]ob Patient Education 2023 [employer]. Follow Up Care 07/09/2024 14:36:54 With:Zak Quiñones Address: [address] [place] [address] Business (1) When:07/12/2024 16:10:31 [facility] 11-19-2024 NoteED Patient Education Note Orthopedics Tendinitis [...] by your health care provider. ??? Take jaxw-ilc-yegcuoo and prescription medicines only as told by [...] (compression), and elevatingthe are (more content not included)...[facility]11-19-[facility] Evaluation + Plan noteExtracted from: Title:ED Note Author:Jesus Grijalva PA-C te:07/09/24 Left shoulder pain (M25.512: Pain in left shoulder) Tendinitis (M77.9: Enthesopathy, unspecified) Ordered: acetaminophen-oxycodone, 1 tab(s), Oral, q6hr as needed for pain for 3 day(s), 10 tab(s), Refill(s) 0, [id number], 183, cm, 07/09/24 14:44:00 EST, Height/Length Dosing, 132.4, kg, 07/09/24 14:44:00 EST, Weight Dosing Orders: acetaminophen-oxycodone, 1 tab(s), Tab, Oral, Once, Stop date 07/09/24 15:01:00 EST, STAT, Start date 07/09/24 15:01:00 EST Apply Sling XR Shoulder Complete Right Future Appointments Appointment Date:09/04/2024 03:15:00 PM Scheduled Provider:Taz THOMAS MD Location:[facility] Appointment Type:URO Office Visit [facility] 11-13-2024 History of Present illness Narrative* Mounika [...] timestamp. Flowsheet Row Documentation from 06/25/2024 in [facility] with Mary Alice Casper[place] Hospital Information ED, Hospital or Usp Facility Discharge? ED Patient has been contacted within 1 week of being seen in the ED Yes Diagnosis Pneumonia Discharge Date 06/23/24 Discharged To: Home Setting Discharge Hospital [facility] Engagement Admission Date 06/23/24 Medications Discharge [...] or fail to improve. documented in this encounterSaint Luke's HospitalPuptsdiwab89-57-7394 Telephone encounter Note* Telephone Encounter - HARPAL Barnes - 06/24/2024 11:07 AM EST Ok reviewed and we discussed at visit to try to get an earlier appt or talk with Dr. Murray staff [facility] HospitalPswhiwxhvz00-50-8756 Miscellaneous Notes* Telephone Encounter - HARPAL Barnes [...] as soon as possible? documented in this encounterSaint Luke's HospitalIwvicxbqba32-27-1921 Telephone encounter Note* Telephone Encounter - Suzanna Smith MA - 06/24/2024 10:28 AM EST Patient is currently scheduled to see Dr. Sweeney 07-15-2024. [facility] HospitalEkxuxzxyfb35-27-3435 Telephone encounter Note* Telephone Encounter - HARPAL Barnes - 06/24/2024 8:37 AM EST Please call patient I see he was in ER and diagnosed with pneumonia however his hgba1c was 14 and Iwanted to see if he made appt to see Dr. Murray as soon as possible? [facility] [id number] Hospital Discharge instructions Patient Education 06/23/2024 14:01:17 Community-Acquired Pneumonia, Adult, Wagp-mj-Fvan Community-Acquired Pneumonia, Adult Pneumonia is an infection [...] Follow these instructions at home: Medicines Take evqv-ull-gczwsfb and prescription medicines only as told by [...] cannot use soap and water, use hand cigar making machine operator. Contact a doctor if: You have [...] provider. Document Revised: 10/05/2022 Document Reviewed: 10/05/2022 [employer] Patient Education 2023 [employer]. 06/23/2024 14:01:17 Rib Contusion Rib Contusion A [...] risk for lung collapse and pneumonia. Medicines. Tupm-cpe-cmlboii or prescription medicines may be given to control pain. Injection of a numbing medicine around the nerve near your injury (nerve block). Follow these instructions at home: Medicines Take bnms-xbs-kvpibbj and prescription medicines only as told by your health care provider. Ask your health care provider if the medicine prescribed to you: ?Requires you to avoid driving or using machinery. ?Can cause constipation. You may need to take these actions to prevent or treat constipation: ?Drink enough fluid to keep your urine pale yellow. ?Take gwuc-nmn-oipclxv or prescription medicines. ?Eat foods that are [...] provider. Document Revised: 11/11/2020 Document Reviewed: 11/11/2020 [employer]ob Patient Education 2023 agencyQ Follow Up Care 06/23/2024 13:38:04 With:Mounika Brooke Address: [place] [address]- Business (1) When:06/26/2024 13:54:07 Comments:Call for diagnosis based follow up [facility] 11-03-2024 NoteED Patient Education Note Infectious Disease [...] these instructions at home: Medicines ??? Take ityi-smd-rngjrnb and prescription medicines only as told by [...] cannot use soap and water, use hand cigar making machine operator. Contact a doctor if: ??? You [...] lungs. ??? Community-acquired pneumonia (more content not included)...[facility]11-03-2024 Evaluation + Plan noteExtracted from: Title:ED Note Author:Paddy Betancourt PA-C te:06/23/24 Contusion of rib on left [facility] (S20.212A: Contusion of left front wall of thorax, initial encounter) Pneumonia (J18.9: Pneumonia, unspecified organism) Orders: acetaminophen-oxycodone, 1 tab(s), Oral, q6hr for pain for 3 day(s), 12 tab(s), Refill(s) 0, [facility] #[id number], 183, cm, 06/23/24 13:45:00 EST, Height/Length Dosing, 143, kg, 06/23/24 13:45:00 EST, Weight Dosing doxycycline, 100 mg = 1 cap(s), Oral, BID, # 20 cap(s), Refills(s) 0, Pharmacy: [facility] #[id number], 183, cm, 06/23/24 13:45:00 EST, Height/Length Dosing, 143, kg, 06/23/24 13:45:00 EST, Weight Dosing Future Appointments Appointment Date:09/04/2024 03:15:00 PM Scheduled Provider:Taz THOMAS MD Location:[facility] Appointment Type:URO Office Visit [facility] 11-01-2024 History of Present illness Narrative* HARPAL Barnes - 06/21/2024 1:30 PM EDT Images from the original note were not included. Nicole oLra is a 64 y.o. male presents with [...] He has an upcoming appointment with his counselor manager, Dr. Sweeney. ALLERGIES He is allergic to PENICILLIN. MEDICATIONS: Current Outpatient Medications Medication Instructions albuterol HFA 90 mcg/act inhaler 2 puffs, Every 4 hours PRN atorvastatin (LIPITOR) 40 mg, Every 24 hours Continuous Blood Gluc Newspaper Vendor (FreeStyle [place] [place]) device 1 each, Does not apply, Continuous [...] He is advised to consult with his counselor manager, Dr. Sweeney, regarding his elevated blood sugar [...] needles has been renewed and sent to [facility]. Assessment/Plan Problem List Items Addressed This Visit Chronic cough Relevant Orders XR chest 2 views Type 2 diabetes mellitus with hyperglycemia ([facility]) - Primary Relevant Medications pen [...] Influenza Vaccine (1) 04/21/2024 documented in this encounterSaint Luke's HospitalGmvgopuwwi31-35-3041 NoteTime Out 05/22/2024. 2:41 PM. Confirmed correct patient, procedure, site, and patient consented. Anesthesia Topical anesthesia was used. Anesthetic medications included Lidocaine 2%, Proparacaine 0.5%. Procedure Preparation included 5% betadine to ocular surface, eyelid speculum. Injection: 0.3 mg ranibizumab 0.3 MG/0.05ML Route: Intravitreal, Site: Left Eye [facility]: 43557-702-37, Lot: [id number], Expiration date: 04/29/2026, Waste: 0 mL Post-op [...] with increased pain, redness, decreased vision or concerns.[facility] Luke's HospitalUjqwjbvycf10-35-7014 History of Present illness Narrative* PEDRO PABLO Her - 05/22/2024 2:00 PM EDT Images from the original note were not included. 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 Can we help with this [facility] HospitalWhuygdxjhh57-24-2606 Miscellaneous Notes* Telephone Encounter - Mounika Brooke MD - 04/29/2024 2:53 PM EDT Pt has at home oxygen - would benefit from portable oxygen. Can we help with this documented in this encounterStephanie Ville [id number] History of Present illness Narrative* Mounika Brooke [...] at the same time. Continuous Blood Gluc Newspaper Vendor (FreeStyle [employer] [place]) device 1 each continuously 1 each 0 [...] retinopathy associated with type 2 diabetes mellitus ([facility]) Encouraged follow up with optho Diabetic neuropathy ([facility]) Stable, continue to monitor. No change in regimen. Gastroesophageal reflux disease Stable, continue to monitor. No change in regimen. Hyperlipidemia ([facility]) Stable, continue to monitor. No change in regimen. Hypertension ([facility]) Stable, continue to monitor. No change in regimen. Long-term insulin use ([facility]) Morbid obesity ([facility]) - continue to monitor weight Restless leg syndrome Currently uncontrolled as pt is out of meds. Refill sent of increased dose Stage 3b chronic kidney disease (HCC) ([facility]) Stable, continue to monitor. No change in regimen. Type 2 diabetes mellitus with hyperglycemia ([facility]) - Uncontrolled, A1c > 13 - encouraged follow up with endo Varicose veins of lower extremity Continue to follow w/ vascular TC (obstructive sleep apnea) Stable, continue to monitor. No change in regimen. Chronic hypoxemic respiratory failure ([facility]) Stable, continue to monitor. No change in regimen. Acute on chronic respiratory failure with hypoxia and hypercapnia ([facility]) Stable, continue to monitor. No change in regimen. Discussed concerning sx to monitor for. Continue oxygen use - pt would benefit from portable oxygen Obesity hypoventilation syndrome ([facility]) Other Visit Diagnoses Encounter for Medicare annual wellness exam - Primary RLS (restless legs syndrome) Relevant Medications rOPINIRole (Requip) 2 MG tablet Oxygen dependent BMI 40.0-44.9, adult ([facility]) The following health maintenance schedule [...] placed in this encounter. documented in this encounterSaint Luke's HospitalDnpvwvgpbq50-89-4025 NoteTime Out 04/23/2024. 11:05 AM. Confirmed correct patient, procedure, site, and patient consented. Anesthesia Topical anesthesia was used. Anesthetic medications included Lidocaine 2%, Proparacaine 0.5%. Procedure Preparation included 5% betadine to ocular surface, eyelid speculum. Injection: 0.3 mg ranibizumab 0.3 MG/0.05ML Route: Intravitreal, Site: Left Eye [facility]: 00134-477-56, Lot: [id number], Expiration date: 04/29/2026, Waste: 0 mL Post-op [...] with increased pain, redness, decreased vision or concerns.[facility]'s HospitalEmtcxwjjlk29-04-9743 History of Present illness Narrative* Perlita Meeks MD - 04/23/2024 10:45 AM EDT Assessment/Plan documented in this encounterSaint Luke's HospitalBofuggdogs91-19-6229 History of Present illness Narrative* Perlita Meeks MD - 04/15/2024 2:30 PM EDT Assessment/Plan begin anti vegf documented in this encounterSaint Luke's HospitalYajukgoepo91-64-1211 Hospital Discharge instructions Follow Up Care 02/28/2024 08:07:26 With:MARTHA LYMAN, Taz Abraham, MICHAELL Address: [address] [place] [address]- When: Unknown [facility] 07-10-2024 Hospital Discharge instructions Patient Education [...] urethra. Follow these instructions at home: Take zaac-hww-duouryn and prescription medicines only as told by [...] Document Reviewed: 02/23/2022 Elsevier Patient Education 2022 [employer] Follow Up Care 02/05/2024 13:59:39 With:MARTHA LYMAN, Taz Abraham, URL Address: [address] [address]- When: Unknown [facility] 06-17-2024 Hospital Discharge instructions Patient Education [...] Care 11/20/2023 14:00:17 With:Taz THOMAS Address: [address] [facility] (1) When: Unknown Comments:Please arrange for a follow-up next week so we can remove your catheter for a voiding trial.Some discharge instructions have been provided.Push fluids to keep the urine clear. [facility]06-17-2024 Note [id number]#1.00Rashawn [facility] 01-15-2024 Hospital Discharge instructions Patient Education 01/15/2024 [...] provider. Document Revised: 10/27/2021 Document Reviewed: 07/23/2021 [employer]ob Patient Education 2021 [employer]. Follow Up Care 01/15/2024 16:18:08 With:REID BROOKE Address: [address] [place], [place] [id number] [facility] (1) When:Within 3 Day(s) [facility]04-04-2024 NoteHNO ID: [id number] Author: ESAU TRUONG APRN.MO Service: ? Author Type: Nurse Specialist Type: Progress Notes Filed: 11/29/2023 07:04 Note Text: [facility] RESIDENTIAL NOTE NAME: NICOLE LORA [facility] NO.: [id number] DATE OF SERVICE: 11/23/2023 ATTENDING PHYSICIAN: MO Yip [facility] Chart Note REASON FOR VISIT: The patient is a resident of . This is a skilled visit for COPD [...] sliding scale. DICTATED BY: MO Yip/SUSYT JOB# [id number] [employer] [facility]04-04-2024 History of Present illness Narrative* Esau Truong APRN.OM - 11/23/2023 12:00 AM EDT [facility] RESIDENTIAL NOTE NAME: NICOLE LORA [facility] NO.: [id number] DATE OF SERVICE: 11/23/2023 ATTENDING PHYSICIAN: MO Yip [facility] Chart Note REASON FOR VISIT: The patient is a resident of . This is a skilled visit for COPD with respiratory failure history and other medical concerns. Upon entering [facility], found the patient calm, alert, sitting in bed. The patient just completed morning meal. The patient does not appear to be in distress or discomfort. The patient states feels well today. [facility] has been working with therapy and feels [...] sliding scale. DICTATED BY: MO Yip/AQT JOB# [id number] [facility] documented in this encounterMercy Health04-01-2024 Evaluation + Plan note Extracted from: Title:HOPD visit Author:Taz THOMAS MD Date: 11/20/23 Impression and Plan Assessment and Plan: Diagnosis: BPH with obstruction/lower urinary tract symptoms (AIO77-SK N40.1, Billing Diagnosis, Medical), Other obstructive and reflux uropathy (DEY64-UG N13.8, Discharge, Medical), Feeling of incomplete bladder emptying (BQZ87-BI R39.14, Billing Diagnosis, Medical), Urinary retention (ZHF82-MZ R33.9, Billing Diagnosis, Medical). Additional Plan of [...] FT Appointment Date:02/05/2024 01:15:00 PM Scheduled Provider: Location:[facility] Surgical [facility] Appointment Type:Urology FT Future Scheduled Tests Radiology* XR Chest 2 Views 05/15/23 * XR Chest 2 Views 05/15/23 [facility]04-01-2024 NoteHNO ID: [id number] Author: ALVARO HERRERA, ? Service: ? Author Type: Physician Type: Progress Notes Filed: 11/22/2023 11:38 Note Text: [facility] NOTE NAME: NICOLE LORA [facility] NO.: [id number] DATE OF SERVICE: 11/20/2023 ATTENDING PHYSICIAN: Alvaro Herrera MD [facility] PATIENT HISTORY AND PHYSICAL: HISTORY OF PRESENT ILLNESS: The patient is a 63-year-old male, who is admitted to us from [facility] with a diagnosis of altered [...] with hypernatremia and hyperkalemia-we (more content not included)...[facility] 11-20-2023 [id number]#1.00[facility]2024 [id number]#1.00TIFF [facility]04-01-2024 History of Present illness Narrative* Alvaro Herrera - 11/20/2023 12:00 AM EDT [facility] RESIDENTIAL NOTE NAME: NICOLE LORA [facility] NO.: [id number] DATE OF SERVICE: 11/20/2023 ATTENDING PHYSICIAN: Alvaro Herrera MD [facility] PATIENT HISTORY AND PHYSICAL: HISTORY OF PRESENT ILLNESS: The patient is a 63-year-old male, who is admitted to us from [facility] with a diagnosis of altered mental status [...] himself. DICTATED BY: MD KORI Cho/MARCIA JOB# [id number] [facility] documented in this encounterMercy Health03-29-2024 Progress note Author Hood Zacarias [facility] November 17, 2023 12:18pm Note Date/Time November 17, 2023 12: 18pm [facility] [address] [place] [address] Nephrology Progress Note Signed Patient: Nicole Lora MR#: [id number] [birth year] : 1960 Acct:[id number] Age/Sex: 63 / M Adm Date: 4 Loc: Room: [address] [place] [address] Type: ADM IN Attending Dr: Manish Fu MD Copies to: ~ Date of Service: 11/17/2023 Subjective Subjective Narrative: This is a 63-year-old male with a medical history of CKD, DM, HTN, TC, COPD, CHF was transferred from [facility] for shortness of breath and hypercapnic respiratory failure. Patient was admitted at [facility] on September 2023 for COPD and CHF. During hospitalization he wasalso found to have AMY on CKD due to the cardiorenal syndrome. His renal function improved with diuresis. Patient was also found to have urine retentionand had Elliott catheter. Patient was readmitted at [facility] and his diuretic regimen was adjusted. His labs in ER showed AMY with serum creatinine 4.9 mg/dL and hyperkalemia with serum potassium 5.3 mmol/L and anion gap of 18. Patient ABG showed pH 7.25 pCO2 58 oxygen saturation 57. He was placed on BiPAP briefly. Patient on arrival at [facility] had ABG which showed pH 7.19, pCO2 [...] Ampul.Neb) 0.5 mg INHALATION BID [facility] Stop: 11/12/24 20:59 Last Admin: 11/17/23 08:11 Dose: 0.5 mg Dextrose (Dextrose 50% In Water 25 Gm/50 Ml Syringe) 0 gm IV-PUSH PRN PRN PRN Reason: Hypoglycemia Stop: 11/10/24 20:56 Duloxetine HCl (Duloxetine 60 Mg Capsule.Dr) 60 mg PO DAILY [facility] Stop: 11/13/24 08:59 Last Admin: 11/17/23 09:13 Dose: 60 mg Gabapentin (Gabapentin 300 Mg Capsule) 300 mg PO QHS [facility] Stop: 11/14/24 21:59 Last Admin: 11/16/23 21:02 Dose: Not Given Glucose (Dextrose 40% Gel 15 Gm Tube) 0 gm PO PRN PRN PRN Reason: Hypoglycemia Stop: 11/10/24 20:56 Last Admin: 11/12/23 17:38 Dose: 30 gm Guaifenesin (Guaifenesin 600 Mg Tab.Er.12h) 1,200 mg PO BID [facility] Stop: 11/12/24 20:59 Last Admin: 11/17/23 09:13 Dose: 1,200 mg Hydralazine HCl (Hydralazine 10 Mg Tablet) 10 mg PO BID [facility] Stop: 11/12/24 20:59 Last Admin: 11/17/23 09:13 Dose: 10 mg Fluconazole (Diflucan) 200 mg in 100 mls @ 100 mls/hr IV Q24H [facility] Last Admin: 11/16/23 14:09 Dose: 100 mls/hr Ceftriaxone Sodium (Rocephin) 1 gm in 50 mls @ 100 mls/hr IV Q24H [facility] Last Admin: 11/16/23 13:20 Dose: 100 mls/hr Insulin Aspart (Insulin Aspart 300 Units/3 Ml Insuln.Pen) 0 units SUBCUT TID.WM.HS [facility]; Protocol Stop: 11/10/24 21:59 Last Admin: 11/17/23 09:13 Dose: Not Given Insulin Glargine (Insulin Glargine 300 Units/3 Ml Insuln.Pen) 35 units SUBCUT QHS [facility] Stop: 11/10/24 21:59 Last Admin: 11/16/23 21:31 [...] signed by MD Hood Zacarias> 11/17/23 1218 [facility] Work Phone: 1(522) 648-807403-28-2024 Progress note Author Manish Fu [facility] November 16, 2023 2:26pm Note Date/Time November 16, 2023 1:4 2pm [facility] [address] [place], [place] [id number] Hospitalist Progress Note Signed Patient: Nicole Lora MR#: [id number] [birth year] : 1960 Acct:[id number] Age/Sex: 63 / M Adm Date: 4 Loc: 4 Room: [address] [place] [address] Type: ADM IN Attending Dr: Manish Fu MD Copies to: ~ Date of Service: 11/16/2023 Subjective Subjective Narrative: Mental status significantly improved today. Patient notes that he is feeling a lot better, and actually request to go home. I did explain that he has been admitted to the hospital multiple times and needs further care [facility]. He is agreeable to this plan [...] <Electronically signed by Manish Fu MD> 11/16/23 3403 [facility] Work Phone: 1(700) 562-559003-28-2024 Progress note Author Hood Zacarias [facility] November 16, 2023 12:15pm Note Date/Time November 16, 2023 12: 15pm [facility] [address] [place] [address] Nephrology Progress Note Signed Patient: Nicole Lora MR#: [id number] [birth year] : 1960 Acct:[id number] Age/Sex: 63 / M Adm Date: 4 Loc: Room: [address] [place] [address] Type: ADM IN Attending Dr: Manish Fu MD Copies to: ~ Date of Service: 11/16/2023 Subjective Subjective Narrative: This is a 63-year-old male with a medical history of CKD, DM, HTN, TC, COPD, CHF was transferred from [facility] for shortness of breath and hypercapnic respiratory failure. Patient was admitted at [facility] on September 2023 for COPD and CHF. During hospitalization he wasalso found to have AMY on CKD due to the cardiorenal syndrome. His renal function improved with diuresis. Patient was also found to have urine retentionand had Elliott catheter. Patient was readmitted at [facility] and his diuretic regimen was adjusted. His labs in ER showed AMY with serum creatinine 4.9 mg/dL and hyperkalemia with serum potassium 5.3 mmol/L and anion gap of 18. Patient ABG showed pH 7.25 pCO2 58 oxygen saturation 57. He was placed on BiPAP briefly. Patient on arrival at [facility] had ABG which showed pH 7.19, pCO2 [...] Tablet) 40 mg PO QHS [facility] Stop: 11/12/24 21:59 Last Admin: 11/15/23 21:12 Dose: 40 mg Budesonide (Budesonide 0.5 Mg/2 Ml Ampul.Neb) 0.5 mg INHALATION BID [facility] Stop: 11/12/24 20:59 Last Admin: 11/16/23 07:40 Dose: 0.5 mg Dextrose (Dextrose 50% In Water 25 Gm/50 Ml Syringe) 0 gm IV-PUSH PRN PRN PRN Reason: Hypoglycemia Stop: 11/10/24 20:56 Duloxetine HCl (Duloxetine 60 Mg Capsule.Dr) 60 mg PO DAILY [facility] Stop: 11/13/24 08:59 Last Admin: 11/16/23 09:08 Dose: 60 mg Gabapentin (Gabapentin 300 Mg Capsule) 300 mg PO QHS [facility] Stop: 11/14/24 21:59 Last Admin: 11/15/23 21:13 Dose: 300 mg Glucose (Dextrose 40% Gel 15 Gm Tube) 0 gm PO PRN PRN PRN Reason: Hypoglycemia Stop: 11/10/24 20:56 Last Admin: 11/12/23 17:38 Dose: 30 gm Guaifenesin (Guaifenesin 600 Mg Tab.Er.12h) 1,200 mg PO BID [facility] Stop: 11/12/24 20:59 Last Admin: 11/16/23 09:08 Dose: 1,200 mg Hydralazine HCl (Hydralazine 10 Mg Tablet) 10 mg PO BID [facility] Stop: 11/12/24 20:59 Last Admin: 11/16/23 09:08 Dose: 10 mg Fluconazole (Diflucan) 200 mg in 100 mls @ 100 mls/hr IV Q24H [facility] Last Admin: 11/15/23 18:00 Dose: 100 mls/hr Ceftriaxone Sodium (Rocephin) 1 gm in 50 mls @ 100 mls/hr IV Q24H [facility] Insulin Aspart (Insulin Aspart 300 Units/3 Ml Insuln.Pen) 0 units SUBCUT TID.WM.HS [facility]; Protocol Stop: 11/10/24 21:59 Last Admin: 11/16/23 09:08 Dose: Not Given Insulin Glargine (Insulin Glargine 300 Units/3 Ml Insuln.Pen) 35 units SUBCUT QHS [facility] Stop: 11/10/24 21:59 Last Admin: 11/15/23 21:14 [...] Tablet.Dr) 40 mg PO DAILY [facility] Stop: 11/13/24 08:59 Last Admin: 11/16/23 09:07 Dose: 40 mg Sennosides (Sennosides 8.6 Mg Tablet) 1 tab PO BID [facility] Stop: 11/10/24 20:59 Last Admin: 11/16/23 09:07 Dose: 1 tab Tamsulosin HCl (Tamsulosin 0.4 Mg Cap.Er.24h) 0.4 mg PO DAILY [facility] Stop: 11/13/24 08:59 Last Admin: 11/16/23 09:08 Dose: 0.4 mg Torsemide (Torsemide 20 Mg Tablet) 40 mg PO DAILY@0800 [facility] Stop: 11/13/24 09:44 Last Admin: 11/16/23 09:08 [...] <Electronically signed by MD Hood Zacarias> 11/16/23 1217 [facility] Work Phone: 1(419) 546-885603-27-2024 Progress note Author Hood Zacarias [facility] November 15, 2023 1:58pm Note Date/Time November 15, 2023 1:5 8pm [facility] [address] [place] [address] Nephrology Progress Note Signed Patient: Nicole Lora MR#: [id number] [birth year] : 1960 Acct:[id number] Age/Sex: 63 / M Adm Date: 4 Loc: Room: [address] [place] [address] Type: ADM IN Attending Dr: Manish Fu MD Copies to: ~ Date of Service: 11/15/2023 Subjective Subjective Narrative: This is a 63-year-old male with a medical history of CKD, DM, HTN, TC, COPD, CHF was transferred from [facility] for shortness of breath and hypercapnic respiratory failure. Patient was admitted at [facility] on September 2023 for COPD and CHF. During hospitalization he wasalso found to have AMY on CKD due to the cardiorenal syndrome. His renal function improved with diuresis. Patient was also found to have urine retentionand had Elliott catheter. Patient was readmitted at [facility] and his diuretic regimen was adjusted. His labs in ER showed AMY with serum creatinine 4.9 mg/dL and hyperkalemia with serum potassium 5.3 mmol/L and anion gap of 18. Patient ABG showed pH 7.25 pCO2 58 oxygen saturation 57. He was placed on BiPAP briefly. Patient on arrival at [facility] had ABG which showed pH 7.19, pCO2 [...] Ampul.Neb) 3 ml INHALATION QID.RESP [facility] Stop: 11/12/24 19:59 Last Admin: 11/15/23 11:28 Dose: 3 ml Atorvastatin Calcium (Atorvastatin 40 Mg Tablet) 40 mg PO QHS [facility] Stop: 11/12/24 21:59 Last Admin: 11/14/23 21:10 Dose: 40 mg Budesonide (Budesonide 0.5 Mg/2 Ml Ampul.Neb) 0.5 mg INHALATION BID [facility] Stop: 11/12/24 20:59 Last Admin: 11/15/23 09:00 Dose: 0.5 mg Dextrose (Dextrose 50% In Water 25 Gm/50 Ml Syringe) 0 gm IV-PUSH PRN PRN PRN Reason: Hypoglycemia Stop: 11/10/24 20:56 Duloxetine HCl (Duloxetine 60 Mg Capsule.Dr) 60 mg PO DAILY [facility] Stop: 11/13/24 08:59 Last Admin: 11/15/23 08:14 Dose: 60 mg Gabapentin (Gabapentin 300 Mg Capsule) 300 mg PO QHS [facility] Stop: 11/14/24 21:59 Glucose (Dextrose 40% Gel 15 Gm Tube) 0 gm PO PRN PRN PRN Reason: Hypoglycemia Stop: 11/10/24 20:56 Last Admin: 11/12/23 17:38 Dose: 30 gm Guaifenesin (Guaifenesin 600 Mg Tab.Er.12h) 1,200 mg PO BID [facility] Stop: 11/12/24 20:59 Last Admin: 11/15/23 08:14 Dose: 1,200 mg Hydralazine HCl (Hydralazine 10 Mg Tablet) 10 mg PO BID [facility] Stop: 11/12/24 20:59 Last Admin: 11/15/23 08:14 Dose: 10 mg Fluconazole (Diflucan) 200 mg in 100 mls @ 100 mls/hr IV Q24H [facility] Insulin Aspart (Insulin Aspart 300 Units/3 Ml Insuln.Pen) 0 units SUBCUT TID.WM.HS [facility]; Protocol Stop: 11/10/24 21:59 Last Admin: 11/15/23 08:15 Dose: Not Given Insulin Glargine (Insulin Glargine 300 Units/3 Ml Insuln.Pen) 35 units SUBCUT QHS [facility] Stop: 11/10/24 21:59 Last Admin: 11/14/23 21:10 [...] Urine culture from Elliott catheter showed Enterobacter Carson complex and Kaelyn albicans. Patient has indwelling Elliott catheter and he is supposed to follow-up with urology for cystometric and cystoscopy as outpatient. * Check renal function daily monitor input output Documented By: Hood Zacarias MD 11/15/23 9959 Signed By: <Electronically signed by MD Hood Zacarias> 11/15/23 5201 [facility] Work Phone: 1(704) 856-634903-27-2024 Progress note Author Manish Fu [facility] November 15, 2023 1:27pm Note Date/Time November 15, 2023 12: 20pm [facility] [address] [place] [address] Hospitalist Progress Note Signed Patient: Nicole Lora MR#: [id number] [birth year] : 1960 Acct:[id number] Age/Sex: 63 / M Adm Date: 4 Loc: 4 Room: [address] [place] [address] Type: ADM IN Attending Dr: Manish Fu [...] Tab.Er.12h PO 11/12/24 20:59 1,200 mg BID JIMMEI Administration Hydralazine HCl 10 mg 11/13/23 21:00 11/15/23 08:14 Hydralazine 10 Mg Tablet PO 11/12/24 20:59 10 mg BID JIMMIE Administration Insulin Aspart 0 units 11/11/23 22:00 11/15/23 08:15 Insulin Aspart 300 Units/3 Ml Insuln.Pen SUBCUT 11/10/24 21:59 Not Given TID.WM.[facility] Protocol Insulin Glargine 35 units 11/11/23 22:00 [...] signed by Manish Fu MD> 11/15/23 1327 [facility] Work Phone: 1([phone]) 845-808803-26-2024 Progress note Author Manish Fu [facility] November 14, 2023 8:19pm Note Date/Time November 14, 2023 8:0 8pm [facility] [address] [place], [place] [id number] Hospitalist Progress Note Signed Patient: Nicole Lora MR#: [id number] [birth year] : 1960 Acct:[id number] Age/Sex: 63 / M Adm Date: 4 Loc: Room: [address] [place] [address] Type: ADM IN Attending Dr: Manish Fu [...] 11/10/24 21:59 Not Given TID.WM.HS [facility] Protocol Insulin Glargine 35 units 11/11/23 22:00 [...] <Electronically signed by Manish Fu MD> 11/14/232018 [facility] Work Phone: 1(285) 162-880503-26-2024 Progress note Author Hood Zacarias [facility] November 14, 2023 1:34pm Note Date/Time November 14, 2023 1:3 4pm [facility] [address] [place], [place] [address] Nephrology Progress Note Signed Patient: Nicole Lora MR#: [id number] [birth year] : 1960 Acct:[id number] Age/Sex: 63 / M Adm Date: 4 Loc: Room: [address] [place] [address] Type: ADM IN Attending Dr: Manish Fu MD Copies to: ~ Date of Service: 11/14/2023 Subjective Subjective Narrative: This is a 63-year-old male with a medical history of CKD, DM, HTN, TC, COPD, CHF was transferred from [facility] for shortness of breath and hypercapnic respiratory failure. Patient was admitted at [facility] on September 2023 for COPD and CHF. During hospitalization he wasalso found to have AMY on CKD due to the cardiorenal syndrome. His renal function improved with diuresis. Patient was also found to have urine retentionand had Elliott catheter. Patient was readmitted at [facility] and his diuretic regimen was adjusted. His labs in ER showed AMY with serum creatinine 4.9 mg/dL and hyperkalemia with serum potassium 5.3 mmol/L and anion gap of 18. Patient ABG showed pH 7.25 pCO2 58 oxygen saturation 57. He was placed on BiPAP briefly. Patient on arrival at [facility] had ABG which showed pH 7.19, pCO2 [...] Ampul.Neb) 0.5 mg INHALATION BID [facility] Stop: 11/12/24 20:59 Last Admin: 11/14/23 07:35 Dose: 0.5 mg Dextrose (Dextrose 50% In Water 25 Gm/50 Ml Syringe) 0 gm IV-PUSH PRN PRN PRN Reason: Hypoglycemia Stop: 11/10/24 20:56 Duloxetine HCl (Duloxetine 60 Mg Capsule.Dr) 60 mg PO DAILY [facility] Stop: 11/13/24 08:59 Last Admin: 11/14/23 08:10 Dose: 60 mg Glucose (Dextrose 40% Gel 15 Gm Tube) 0 gm PO PRN PRN PRN Reason: Hypoglycemia Stop: 11/10/24 20:56 Last Admin: 11/12/23 17:38 Dose: 30 gm Guaifenesin (Guaifenesin 600 Mg Tab.Er.12h) 1,200 mg PO BID [facility] Stop: 11/12/24 20:59 Last Admin: 11/14/23 08:10 Dose: 1,200 mg Hydralazine HCl (Hydralazine 10 Mg Tablet) 10 mg PO BID [facility] Stop: 11/12/24 20:59 Last Admin: 11/14/23 08:10 Dose: 10 mg Ceftriaxone Sodium (Rocephin) 2 gm in 50 mls @ 100 mls/hr IV Q24H [facility] Stop: 11/15/23 08:29 Last Admin: 11/14/23 08:11 Dose: 100 mls/hr Insulin Aspart (Insulin Aspart 300 Units/3 Ml Insuln.Pen) 0 units SUBCUT TID.[facility]; Protocol Stop: 11/10/24 21:59 Last Admin: 11/14/23 12:41 Dose: Not Given Insulin Glargine (Insulin Glargine 300 Units/3 Ml Insuln.Pen) 35 units SUBCUT QHS [facility] Stop: 11/10/24 21:59 Last Admin: 11/13/23 21:13 [...] reading physician into a diagnostic report(s) for Nicoel Lora. I have reviewed the report(s) and [...] Urine culture from Elliott catheter showed Enterobacter Carson complex and Kaelyn albicans. * Continue Elliott care for now. Will give a trial of void with bladder scan once renal function stabilizes diuretics. * Check renal function daily monitor input output Documented By: Hood Zacarias MD 11/14/23 2440 Signed By: <Electronically signed by MD Hood Zacarias> 11/14/23 8035 [facility] Work Phone: 1(645) 899-195003-25-2024 Progress note Author Manish Fu [facility] November 13, 2023 7:32pm Note Date/Time November 13, 2023 5:3 5pm [facility] [address] [place] [address] Hospitalist Progress Note Signed with Jazzy Patient: Nicole Lora MR#: [id number] [birth year] : 1960 Acct:[id number] Age/Sex: 63 / M Adm Date: 4 Loc: 4P Room: [id number] Type: ADM IN Attending Dr: Manish Fu [...] Ml Insuln.Pen SUBCUT 11/10/24 21:59 Not Given TID.WM.[facility] Protocol Insulin Glargine 35 units 11/11/23 22:00 [...] of care discussed with patient and daughter Davin who is at bedside. Documented By: Manish Fu MD 4 1722 Signed By: <Electronically signed by Manish Fu MD> 11/13/23 1906 [facility] Work Phone: [phone]) 603-927703-25-2024 Progress note Author Hood [facility] November 13, 2023 2:24pm Note Date/Time November 13, 2023 2:2 4pm [facility] [address] [place] [address] Nephrology Progress Note Signed Patient: Nicole Lora MR#: [id number] [birth year] : 1960 Acct:[id number] Age/Sex: 63 / M Adm Date: 4 Loc: 4 Room: [id number] Type: ADM IN Attending Dr: Manish Fu MD Copies to: ~ Date of Service: 11/13/2023 Subjective Subjective Narrative: This is a 63-year-old male with a medical history of CKD, DM, HTN, TC, COPD, CHF was transferred from [facility] for shortness of breath and hypercapnic respiratory failure. Patient was admitted at [facility] on September 2023 for COPD and CHF. During hospitalization he wasalso found to have AMY on CKD due to the cardiorenal syndrome. His renal function improved with diuresis. Patient was also found to have urine retentionand had Elliott catheter. Patient was readmitted at [facility] and his diuretic regimen was adjusted. His labs in ER showed AMY with serum creatinine 4.9 mg/dL and hyperkalemia with serum potassium 5.3 mmol/L and anion gap of 18. Patient ABG showed pH 7.25 pCO2 58 oxygen saturation 57. He was placed on BiPAP briefly. Patient on arrival at [facility] had ABG which showed pH 7.19, pCO2 [...] @ 100 mls/hr IV Q24H [facility] Stop: 11/15/23 08:29 Last Admin: 11/13/23 09:17 Dose: 100 mls/hr Insulin Aspart (Insulin Aspart 300 Units/3 Ml Insuln.Pen) 0 units SUBCUT TID..[facility]; Protocol Stop: 11/10/24 21:59 Last Admin: 11/13/23 14:08 Dose: Not Given Insulin Glargine (Insulin Glargine 300 Units/3 Ml Insuln.Pen) 35 units SUBCUT QHS [facility] Stop: 11/10/24 21:59 Last Admin: 11/12/23 21:43 [...] Migue Wild M.D.11/12/2023 2:47 PM Dictation Location: [place] [address] Any impression(s) listed above is documentation that [...] Urine culture from Elliott catheter showed Enterobacter Carson complex and Kaelyn albicans. * Continue DM management as per the primary hospitalist team. The goal of blood sugar is 100 to 150 mg/dL. * Continue Elliott care. * Check renal function daily monitor input output Documented By: Hood Zacarias MD 11/13/23 141 Signed By: <Electronically signed by MD Hood Zacarias> 11/13/23 1428 [facility] Work Phone: [phone]) 659-311603-24-2024 Progress note Author Durga Loza [facility] November 12, 2023 1:45pm Note Date/Time November 12, 2023 1:4 5pm [facility] [address] [place] [address] Hospitalist Progress Note Signed Patient: Nicole Lora MR#: [id number] 29 : 1960 Acct:[id number] Age/Sex: 63 / M Adm Date: 4 Loc: Room: [address] [place] [address] Type: ADM IN Attending Dr: Durga Loza [...] was arousable and talking in right sentences. [facility] computer system was down socx-ray of the chest and renal ultrasound could not be performed yet. ON ADMISSION: Mr Lora is a 63-year-old male with past medical history of CKD stage III, diabetes type 2, TC, COPD, CHF with preserved ejection fraction [facility] [...] who says that the patientwas admitted to [facility] roughly 1 week later after discharge from our facility and there was some adjustments to his diuretic therapy howevershe is not sure what the new medication was, medication list received from [facility] emergency room note shows Lasix 40 mg [...] leaking at home for a while. At [facility] he did receive 2 L of IV fluids and then subsequently transferred here for a nephrologyconsult. His labs at [facility] were notable for BUN of 76 and [...] 12 units SUBCUT Administration TID.AC [facility] Insulin Glargine 35 units 11/11/23 22:00 11/11/23 [...] Daughter, Davin see can be reached at [phone] Documented By: Durga Loza MD 11/12/231341 Signed By: <Electronically signed by Durga Loza MD> 11/12/231344 [facility] Work Phone: [phone]) 174-442503-24-2024 Consult note Author Bladimir Story [facility] November 12, 2023 11:53am Note Date/Time November 12, 2023 11: 31am [facility] [address] [place] [address] Nephrology Consult Note Signed Patient: Nicole Lora MR#: [id number] 29 : 1960 Acct:[id number] Age/Sex: 63 / M Adm Date: 4 Loc: Room: [address] [place] [address] Type: ADM IN Attending Dr: Durga Loza MD Copies to: MD Mounika Limon MD, MD~ Providers Consult Date: 11/12/23 Requesting Provider: Durga Loza MD Primary Care Provider: Mounika Brooke MD HPI Reason for Consult: AMY on CKD History of Present Illness: This is a 63-year-old male with a medical history of CKD, DM, HTN, TC, COPD, CHF was transferred from [facility] for shortness of breath and hypercapnic respiratory failure. Patient was admitted at [facility] for COPD and CHF. During hospitalization he was also found to have AMY on CKD due to the cardiorenal syndrome. His renal function improved with diuresis. Patient was also found to have urine retentionand had Elliott catheter. Patient was readmitted at [facility] and his diuretic regimen was adjusted. His labs in ER showed AMY with serum creatinine 4.9 mg/dL and hyperkalemia with serum potassium 4.3 mmol/L and anion gap of 18. Patient ABG showed pH 7.25 pCO2 58 oxygen saturation 57. He was placed on BiPAP briefly. Patient on arrival at [facility] had ABG which showed pH 7.19, pCO2 [...] polydipsia Dermatological: denies any itching or rash [facility] Medical History (Updated 11/12/23 @ 11:27 by [...] Insuln.Pen) 0 units SUBCUT TID.WM.HS [facility]; Protocol Stop: 11/10/24 21:59 Last Admin: 11/12/23 10:16 Dose: 2 units Insulin Aspart (Insulin Aspart 300 Units/3 Ml Insuln.Pen) 12 units 0.083 units/kg (12 units) SUBCUT TID.AC [facility] Stop: 11/11/24 07:29 Last Admin: 11/12/23 10:16 Dose: 12 units Insulin Glargine (Insulin Glargine 300 Units/3 Ml Insuln.Pen) 35 units SUBCUT QHS [facility] Stop: 11/10/24 21:59 Last Admin: 11/11/23 22:51 [...] Tablet) 1 tab PO BID [facility] Stop: 11/10/24 20:59 Last Admin: 11/12/23 10:16 [...] Skin: No rashes , warm to touch 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,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, following simple command Musculoskeletal: No swelling or limitation of movement of the large joints Psychiatric: Cooperative, normal mood and affect Results - Nephrology Labs 11/12/23 04:54 11/12/23 04:54 Labs: 11/11/23 11/11/23 11/12/23 19:27 22:20 04:54 BUN 78 H 80 H Creatinine 4.63 H 4.44 H Albumin 3.4 L Urine Color [place] A Urine Appearance Turbid A Urine pH 5.0 Ur Specific [place] 1.017 Urine Protein 100 H Urine Glucose [...] signed by Bladimir Story MD> 11/12/23 1153 [facility] Work Phone: [phone]) [phone] History and physical note Author Tera Nevarez [facility] November 11, 2023 9:06pm Note Date/Time November 11, 2023 8:0 3pm [facility] [address] [place] [address] Hospitalist H&P Signed with Addenda Patient: Nicole Lora MR#: [id number] 29 : 1960 Acct:[id number] Age/Sex: 63 / M Adm Date: 4 Loc: Room: [address] [place] [address] Type: ADM IN Attending Dr: Tera Nevarez [...] CHF with preserved ejection fraction [facility] [...] who says that the patientwas admitted to [facility] roughly 1 week later after discharge from our facility and there was some adjustments to his diuretic therapy howevershe is not sure what the new medication was, medication list received from [facility] emergency room note shows Lasix 40 mg [...] leaking at home for a while. At [facility] he did receive 2 L of IV fluids and then subsequently transferred here for a nephrologyconsult. His labs at [facility] were notable for BUN of 76 and [...] negative unless noted below or in HPI [facility] Medical History (Updated 11/11/23 @ 20:47 by [...] % (Auto) 14.5 % (.) 11/11/23 19: [place] % (Auto) 9.1 % (.) 11/11/23: Eos % (Auto) 2.1 % (.) 11/11/23: Baso % (Auto) 0.7 % (.) 11/11/23: Nucleat RBC Rel Count 0.1 /100 WBC (0-0.5) 11/11/23: Neut # (Auto) 5.4 x10E3/uL (1.8-7.7) 11/11/23 19: Lymph # (Auto) 1.1 x10E3/uL (1.00-4.8) 11/11/23: Stan[place] # (Auto) 0.7 x10E3/uL (0.0-0.8) 11/11/23 19: [...] daughter, Davin she can be reached at [phone] IP vs OBS Justification Based on differential [...] <Electronically signed by Tera Nevarez DO> 11/11/232052 [facility] Work Phone: 1([phone]) 769-719103-23-2024 Evaluation + Plan noteExtracted from: Title:ED Note [...] Appointments Appointment Date:11/16/2023 09:00:00 AM Scheduled Provider: Location:[facility] Urology Surgical Services Appointment Type:Urology CALL PAT FT Appointment Date:11/20/2023 12:00:00 PM Scheduled Provider: Location:[facility] Urology Surgical Services Appointment Type:Urology FT Appointment Date:11/20/2023 01:15:00 PM Scheduled Provider: Location:[facility] Urology Surgical Services Appointment Type:Urology FT Diagnostic Tests Pending * Blood Culture Charcoal 11/11/23 * Blood Culture Charcoal 11/11/23 * Urine Culture 11/11/23 Future Scheduled Tests Radiology* XR Chest 2 Views 05/15/23 * XR Chest 2 Views 05/15/23 [facility]03-11-2024 Evaluation + Plan noteExtracted from: Title:ED Note Author:Staci Beck DO Date :10/30/23 Complication of Elliott cathet er (T83.9XXA: Unspecified complication of genitourinary prosthetic device, implant and graft, initial encounter) Future Appointments Appointment Date:11/01/2023 02:00:00 PM Scheduled Provider: Location:[facility] Appointment Type:URO Nurse Visit Appointment Date:11/16/2023 09:00:00 AM Scheduled Provider: Location:[facility] Urology Surgical Services Appointment Type:Urology CALL PAT FT Appointment Date:11/20/2023 12:00:00 PM Scheduled Provider: Location:[facility] Urology Surgical Services Appointment Type:Urology FT Appointment Date:11/20/2023 01:15:00 PM Scheduled Provider: Location:[facility] Urology Surgical Services Appointment Type:Urology FT Future Scheduled Tests Radiology* XR Chest 2 Views 05/15/23 * XR Chest 2 Views 05/15/23 [facility]03-11-2024 Hospital Discharge instructions Patient Education 10/30/2023 05:35:44 [...] bag. Secure the leg bag according to marketing director's instructions. This may be above or below [...] on each side. Do this in a [id number] direction. ?If you are male: ?Use one [...] Clean the drainage bag according to the marketing director's instructions or as told byyour health care [...] and water are not available, use hand cigar making machine operator. Always make sure there are no [...] provider. Document Revised: 04/07/2022 Document Reviewed: 04/07/2022 [employer] Patient Education 2022 [employer]. Follow Up Care 10/30/2023 05:10:48 With:Taz THOMAS Address: [address] [address] Business (1) When:11/02/2023 05:21:06 Comments:Follow-up with urology for further evaluation and management. Please return to the ED for any new or worsening symptoms. With:REID BROOKE Address: [address] [address] Business (1) When:Within 3 Day(s) [facility]03-09-2024 NoteHNO ID: [id number] Author: JOHN SPANN RN Service: ? Author Type: Registered Nurse Type: Progress Notes Filed: 10/28/2023 13:45 Note Text: Patient given discharge instructions and printed AVS summary. Medications reviewed in detail including next dose due, indication, and side effects. CHF management including symptoms to report reviewed. All questions answered. IV access discontinued, heart monitor off, and valuables packed by patient. AUTOGRAPHER medications with patient. Awaiting daughter to transport patient home.[id number] NoteHNO ID: [id number] Author: GÓMEZ OLIVA LSW Service: Care Management Author Type: Automatic Pad Making Machine Operator Type: Care Mgt Progress Note Filed: 10/28/2023 12:15 Note Text: CARE MANAGEMENT DISCHARGE NOTE SERVICE DATE: October 28, 2023 SERVICE TIME: 12:14 PM Admission Date: 10/23/2023 LOS: 4 days Discharge Arrangement Discharge Arrangement: Home with Home Health Services Arranged Medical Services: Skilled Home Health Care Type: Usp, Physical Therapy, Occupational Therapy Caregiver Assessment Caregiver is ready, willing and able to meet the patient's needs as recommended by the inter-professional team: Yes Name of Caregiver: [facility] Transportation Arrangements Transportation Arrangements: Car Handoff Communication: Additional Information: Discharge Information Row Name ED to Hosp-Admission (Current) from 10/23/2023 in [facility] [place] [facility] Home Care Patient will be d/c home with HHC from [facility] with a SOC date in 24 to 48 hours. Patient will transported home via family auto. SIGNATURE: JACK Posada PATIENT NAME: Nicole Lora DATE: October 28, 2023 TIME: 12:14 PM CONTACT #: [id number] History of Past illness Narrative* Problem Noted Date Diagnosed Date Resolved Date Acute on chronic respiratory failure with hypoxemia 10/28/2023 Last Assessment & Plan: See fluid overload documented as of this encounter (statuses as of 10/31/2023) [facility]03-09-2024 History of Past illness Narrative* Problem Noted Date Diagnosed Date Resolved Date Acute on chronic respiratory failure with hypoxemia 10/28/2023 Last Assessment & Plan: See fluid overload documented as of this encounter (statuses as of 11/22/2023) [facility]03-09-2024 History of Past illness Narrative* Problem Noted Date Diagnosed Date Resolved Date Acute on chronic respiratory failure with hypoxemia 10/28/2023 Last Assessment & Plan: See fluid overload documented as of this encounter (statuses as of 11/29/2023) [facility]03-09-2024 NoteHNO ID: [id number] Author: NAUN COUCH MD Service: Nephrology Author [...] limbs: +1 edema, distal pulses were palpable. 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 Patient reports multiple hospital admissions in 2023 at [facility] in [place] for fluid overload. 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 Service: ? Author Type: ? Type: Progress Notes Filed: 10/28/2023 03:39 Note Text: Epic Scheduled Downtime: 10/28/2023 1:00:00 AM to 10/28/2023 3:24:00 [facility]03-08-2024 NoteHNO ID: [id number] Author: GÓMEZ OLIVA LSW Service: Care Management Author Type: Automatic Pad Making Machine Operator Type: Care Mgt Progress Note Filed: 10/27/2023 13:20 Note Text: CARE MANAGEMENT PROGRESS NOTE SERVICE DATE: 10/27/2023 SERVICE TIME: 1:17 PM LOS: 3 days Needs Prior to Discharge: To Be Determined Consults: - Pulmonology - Cardiology Medical Needs: - IV lasix Transportation: - Family D/C Disposition: Once cleared by consults and attending physician, patient will be d/c back home. Patient is active with [facility] for PT/OT/SN provided to agency. Plan for patient's daughter or niece to transport. Please contact this SW over the weekend for d/c planning as needed. SIGNATURE: JACK Posada PATIENT NAME: Nicole Lora DATE: October 27, 2023 TIME: 1:17 PM PAGER/CONTACT #: [phone] NoteHNO ID: [id number] Author: TAY STEWART MD Service: General Internal [...] 6.3 CA 9.1 MG (more content not included)...[id number] NoteHNO ID: [id number] Author: JUSTINO MARTÍNEZ RN Service: Nursing Author Type: Registered Nurse Type: Nursing Progress Note Filed: 10/27/2023 03:59 Note Text: Patient's daughter called. She would like the team to call her with updates. [id number] NoteHNO ID: [id number] Author: DELLA MADDOX RN Service: Care Management Author Type: Registered Nurse Type: Care Mgt Progress Note Filed: 10/26/2023 18:23 Note Text: CARE MANAGEMENT PROGRESS NOTE SERVICE DATE: 10/26/2023 SERVICE TIME: 6:16 PM LOS: 2 days Post-Acute Discharge Planning Patient Goal(s): General wellness [place] Explained: [place] Given: Yes Level of Care [...] not know which agency. [facility] like pt is active with [facility] [phone] per [facility]-referral sent to confirm/resume. May NEED NEW F2F [...] 26, 2023 TIME: 6:15 PM PAGER/CONTACT #: [phone] NoteHNO ID: [id number] Author: VALERIE LINDSEY APRN.CNP Service: General Internal Medicine Author Type: Nurse Practitioner Type: Plan of Care Filed: 10/26/2023 15:36 Note Text: INTERNAL MEDICINE PLAN OF CARE SERVICE DATE: 10/26/2023 SERVICE TIME: 10 am ADMITTING PHYSICIAN: Tay Stewart MD Subjective CHIEF COMPLAINT: Fluid Overload NIGHT AND WEEKEND COVERAGE: [place] COVERAGE: [place] PAGER [phone] INTERVAL HISTORY OF PRESENT ILLNESS: Pt seen and examined on [facility] no apparent distress oob in chair. On 4 was moved from the MICU to [facility] yesterday evening . CONSULTANTS: Cardiology, nephrology , Pulmonary consulted today HOSPITAL COURSE: This is a 63 year old male with a PMHx of CKD 3b, chronic respiratory failure, morbid obesity, insulin dependent diabetes, left forefoot amputation admitted from home, lives in [place] for fluid overload. The patient states he's [...] consulted . Patient transferred from ED to [facility] where he has RR 2/2 acute [...] and Airways Line Duration Peripheral 10/23/23 1609 [facility] Short Right Antecubital 20 Gauge 2 days Drain Duration Indwelling Urinary Catheter External Facility Coude 18 Fr -- days ASSESSMENT/PLAN: * Fluid overload- (present (more content not included)...[facility] 10-26-2023 NoteHNO ID: [id number] Author: TAY STEWART MD Service: General Internal [...] which included preparing to see the patient, hctn-ea-joay patient ca (more content not included)...[facility] 10-25-2023 NoteHNO ID: [id number] Author: NAUN COUCH MD Service: Nephrology Author [...] limbs: +3 edema, distal pulses were palpable. 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 Patient reports multiple hospital admissions in 2023 at [facility] in [place] for fluid overload. 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 [facility] [id number] NoteHNO ID: [id number] Author: SRUTHI EGAN PA-C Service: General Internal Medicine Author Type: Physician Drink Waiter Type: Plan of Care Filed: 10/24/2023 23:16 [...] 4.0L. - ABG ordered for 2099 Sruthi Egna PA-C 10/24/2023 6:39 PM Addendum: 2312: Called ICU on-call doc at [phone] and paged at [phone]. Gem back at 2110 with recs to transfer to ICU for bipap initiation. Plan discussed with RN. Patient currently asleep in chair. 90% on 5L O2 NC. Transfer order placed. Sruthi Egan PA-C 10/24/2023 11:15 [facility]03-05-2024 NoteHNO ID: [id number] Author: ELKE ORO RT(R) Service: ? Author Type: Flight Control Tower Operator Type: Progress Notes Filed: 10/24/2023 14:26 Note [...] PATIENT PRESENTS WITH AN IMPLANTABLE OR ATTACHED PACK WORKER: No CREATININE: Creatinine Date Value Ref Range [...] 24, 2023 TIME: 2:25 PM PAGER/CONTACT #:Derek [phone] Hospital Discharge instructions Patient Education 10/18/2023 09:14:11 [...] Follow these instructions at home: Medicines Take ntoj-zzw-nlezpeu and prescription medicines only as told by [...] provider. Document Revised: 04/28/2021 Document Reviewed: 04/28/2021 VMob Patient Education 2022 [employer]. Follow Up Care 09/19/2023 09:41:35 With:MARTHA LYMAN, Taz Abraham, URL Address: [address] [place] [address] When: Unknown [facility] 02-25-2024 Evaluation + Plan noteExtracted from: Title:ED Note Author:Mone Martinez DO Date: Urinary catheter complicatio n (T83.9XXA: Unspecified complication of genitourinary prosthetic device, implant and graft, initial encounter) Future Appointments Appointment Date:10/18/2023 09:00:00 AM Scheduled Provider:Taz THOMAS MD Location:[facility] Appointment Type:URO New Patient Appointment Date:10/18/2023 09:15:00 AM Scheduled Provider:Sukh Harrington DPM [facility] Appointment Type:WC Follow Up Visit (FT) Appointment Date:11/01/2023 02:00:00 PM Scheduled Provider: Location:[facility] Appointment Type:URO Nurse Visit Appointment Date:11/16/2023 09:00:00 AM Scheduled Provider: Location:[facility] Surgical Services Appointment Type:Urology CALL PAT FT Appointment Date:11/20/2023 01:15:00 PM Scheduled Provider: Location:[facility]rology Surgical Services Appointment Type:Urology FT Future Scheduled Tests Radiology* XR Chest 2 Views 05/15/23 * XR Chest 2 Views 05/15/23 [facility]02-25-2024 Hospital Discharge instructions Patient Education 10/15/2023 06:54:02 Elliott Catheter Care, Male-[facility] (Custom) Elliott Catheter Care, Male A Elliott [...] cotton underwear to absorb moisture and keep masking machine feeder. 6. Keep the drainage bag below the [...] Up Care 10/15/2023 06:04:22 With:REID BROOKE Address: [facility] [place] [id number] [facility] (1) When:10/18/2023 06:53:53 Comments:Call the office [...] you develop any new or worsening symptoms. [facility]02-22-2024 Progress note Author Gigi Cooper [facility] October 12, 2023 12:38pm Note Date/Time October 12, 2023 12:38pm [facility] EN[facility] [address] [place] [address] Nephrology Progress Note Signed Patient: Nicole Lora MR#: [id number] [birth year] : 1960 Acct:[id number] Age/Sex: 63 / M Adm Date: 4 Loc: Room: [address] [place] [address] Type: ADM IN Attending Dr: Yesi Murphy [...] / 460 300 / 300 Output Total 06748 / 92893 3600 / 3600 4050 / 4050 900 [...] Tablet) 40 mg PO DAILY [facility] Stop: 10/09/24 08:59 Last Admin: 10/12/23 08:27 Dose: 40 mg Budesonide/Formoterol Fumarate (Budesonide/Formoterol 160-4.5 Mcg 60 Puff/6 Gm Hfa.Aer.Ad) 2 puff INHALATION Q12HR.10A.10P [facility] Stop: 10/08/24 21:59 Last Admin: 10/12/23 09:05 Dose: 2 puff Dextrose (Dextrose 50% In Water 25 Gm/50 Ml Syringe) 0 gm IV-PUSH PRN PRN PRN Reason: Hypoglycemia Stop: 10/06/24 02:05 Furosemide (Furosemide 40 Mg/4 Ml Vial) 40 mg IV-PUSH BID@0800,1600 [facility] Stop: 10/06/24 07:59 Last Admin: 10/11/23 08:01 Dose: 40 mg Gabapentin (Gabapentin 600 Mg Tablet) 600 mg PO BID [facility] Stop: 10/06/24 11:59 Last Admin: 10/12/23 08:27 Dose: 600 mg Glucose (Dextrose 40% Gel 15 Gm Tube) 0 gm PO PRN PRN PRN Reason: Hypoglycemia Stop: 10/06/24 02:05 Heparin Sodium (Porcine) (Heparin 5,000 Unit/Ml Vial) 5,000 unit SUBCUT Q8HR [facility] Stop: 10/06/24 05:59 Last Admin: 10/12/23 04:59 Dose: 5,000 unit Hydralazine HCl (Hydralazine 50 Mg Tablet) 50 mg PO BID [facility] Stop: 10/08/24 08:59 Last Admin: 10/12/23 08:27 Dose: 50 mg Insulin Aspart (Insulin Aspart 300 Units/3 Ml Insuln.Pen) 0 units SUBCUT TID.WM.HS [facility]; Protocol Stop: 10/06/24 07:59 Last Admin: 10/12/23 11:57 Dose: 4 units Insulin Glargine (Insulin Glargine 300 Units/3 Ml Insuln.Pen) 20 units SUBCUT BID [facility] Stop: 10/07/24 20:59 Last Admin: 10/12/23 08:28 [...] signed by Gigi Cooper MD> 10/12/23 1238 [facility] Work Phone: 1(543) 665-309502-22-2024 Discharge summary Author Yesi Murphy [facility] October 12, 2023 1:36pm Note Date/Time October 12, 2023 10:[address] [place] [address] [place] [address] Discharge Summary Signed Patient: Nicole Lora MR#: [id number] [birth year] : 1960 Acct:[id number] Age/Sex: 63 / M Adm Date: 4 Loc: Room: [address] [place] [address]: Yesi Murphy MD Copies to: [...] continued througout his stay with a cumulative -28375 ml during his stay. He did have [...] Plan Discharge Plan Patient Disposition: Home Health [facility] Activity: No Activity Restriction Diet: Diabetic and [...] Patient Ordered By: Yesi Murphy Follow Up: [facility] Nephrology - [place] [Outside] - 10/24/23 [...] signed by Yesi Murphy MD> 10/12/23 1336 [facility] Work Phone: 1(751) 501-507602-21-2024 Progress note Author Gigi Cooper [facility] October 11, 2023 12:27pm Note Date/Time October 11, 2023 12:27pm [facility] [address] [place], [place] [id number] Nephrology Progress Note Signed Patient: Nicole Lora MR#: [id number] [birth year] : 1960 Acct:[id number] Age/Sex: 63 / M Adm Date: 4 Loc: 3T Room: [address] [place] [address] Type: ADM IN Attending Dr: Yesi Murphy [...] / 100 Output Total 3475 / 3475 51903 / 05475 3600 / 3600 1500 / 1500 Balance [...] Hfa.Aer.Ad) 2 puff INHALATION Q12HR.10A.10P [facility] Stop: 10/08/24 21:59 Last Admin: 10/11/23 07:58 Dose: 2 puff Dextrose (Dextrose 50% In Water 25 Gm/50 Ml Syringe) 0 gm IV-PUSH PRN PRN PRN Reason: Hypoglycemia Stop: 10/06/24 02:05 Furosemide (Furosemide 40 Mg/4 Ml Vial) 40 mg IV-PUSH BID@0800,1600 [facility] Stop: 10/06/24 07:59 Last Admin: 10/11/23 08:01 Dose: 40 mg Gabapentin (Gabapentin 600 Mg Tablet) 600 mg PO BID [facility] Stop: 10/06/24 11:59 Last Admin: 10/11/23 08:02 Dose: 600 mg Glucose (Dextrose 40% Gel 15 Gm Tube) 0 gm PO PRN PRN PRN Reason: Hypoglycemia Stop: 10/06/24 02:05 Heparin Sodium (Porcine) (Heparin 5,000 Unit/Ml Vial) 5,000 unit SUBCUT Q8HR [facility] Stop: 10/06/24 05:59 Last Admin: 10/11/23 05:42 Dose: 5,000 unit Hydralazine HCl (Hydralazine 50 Mg Tablet) 50 mg PO BID [facility] Stop: 10/08/24 08:59 Last Admin: 10/11/23 08:02 Dose: 50 mg Insulin Aspart (Insulin Aspart 300 Units/3 Ml Insuln.Pen) 0 units SUBCUT TID.WM.HS [facility]; Protocol Stop: 10/06/24 07:59 Last Admin: 10/11/23 11:38 Dose: 3 units Insulin Glargine (Insulin Glargine 300 Units/3 Ml Insuln.Pen) 20 units SUBCUT BID [facility] Stop: 10/07/24 20:59 Last Admin: 10/11/23 08:02 [...] signed by Gigi Cooper MD> 10/11/23 1227 [facility] Work Phone: 1(231) 431-161702-21-2024 Progress note Author Yesi Murphy [facility] October 11, 2023 8:19am Note Date/Time October 11, 2023 8:17am [facility] [address] [place] [address] Hospitalist Progress Note Signed Patient: Nicole Lora MR#: [id number] [birth year] : 1960 Acct:[id number] Age/Sex: 63 / M Adm Date: 4 Loc: 3T Room: [address] [place] [address] Type: ADM IN Attending Dr: Yesi Murphy [...] on chronic heart failure with preserved ejection uurpigdv69% Patient is using 4 L nasal cannula [...] <Electronically signed by Yesi Murphy MD> 10/11/23818 [facility] Work Phone: 1(834) 198-301802-20-2024 Progress note Author Yesi Murphy [facility] October 10, 2023 1:19pm Note Date/Time October 10, 2023 10:12am [facility] [address] [place] [address] Hospitalist Progress Note Signed Patient: Nicole Lora MR#: [id number] [birth year] : 1960 Acct:[id number] Age/Sex: 63 / M Adm Date: 4 Loc: 3T Room: [address] [place] [address] Type: ADM IN Attending Dr: Yesi Murphy [...] on chronic heart failure with preserved ejection bkelnlno75% Patient is using 4 L nasal cannula [...] <Electronically signed by Yesi Murphy MD> 10/10/23 1318 [facility] Work Phone: 1(602) 913-453202-20-2024 Progress note Author Gigi Cooper [facility] October 10, 2023 12:50pm Note Date/Time October 10, 2023 12:51pm [facility] [address] [place] [address] Nephrology Progress Note Signed Patient: Nicole Lora MR#: [id number] 29 : 1960 Acct:[id number] Age/Sex: 63 / M Adm Date: 4 Loc: Room: [address] [place] [address] Type: ADM IN Attending Dr: Yesi Murphy [...] Total 4250 / 4250 3475 / 3475 25797 / 10490 900 / 900 Balance -2620 / -2620 [...] Tablet) 40 mg PO DAILY [facility] Stop: 10/09/24 08:59 Last Admin: 10/10/23 08:35 Dose: 40 mg Budesonide/Formoterol Fumarate (Budesonide/Formoterol 160-4.5 Mcg 60 Puff/6 Gm Hfa.Aer.Ad) 2 puff INHALATION Q12HR.10A.10P [facility] Stop: 10/08/24 21:59 Last Admin: 10/10/23 10:19 Dose: 2 puff Dextrose (Dextrose 50% In Water 25 Gm/50 Ml Syringe) 0 gm IV-PUSH PRN PRN PRN Reason: Hypoglycemia Stop: 10/06/24 02:05 Furosemide (Furosemide 40 Mg/4 Ml Vial) 40 mg IV-PUSH BID@0800,1600 [facility] Stop: 10/06/24 07:59 Last Admin: 10/10/23 08:35 Dose: 40 mg Gabapentin (Gabapentin 600 Mg Tablet) 600 mg PO BID [facility] Stop: 10/06/24 11:59 Last Admin: 10/10/23 08:35 Dose: 600 mg Glucose (Dextrose 40% Gel 15 Gm Tube) 0 gm PO PRN PRN PRN Reason: Hypoglycemia Stop: 10/06/24 02:05 Heparin Sodium (Porcine) (Heparin 5,000 Unit/Ml Vial) 5,000 unit SUBCUT Q8HR [facility] Stop: 10/06/24 05:59 Last Admin: 10/10/23 05:49 Dose: 5,000 unit Hydralazine HCl (Hydralazine 50 Mg Tablet) 50 mg PO BID [facility] Stop: 10/08/24 08:59 Last Admin: 10/10/23 08:36 Dose: 50 mg Insulin Aspart (Insulin Aspart 300 Units/3 Ml Insuln.Pen) 0 units SUBCUT TID.WM.HS [facility]; Protocol Stop: 10/06/24 07:59 Last Admin: 10/10/23 11:50 Dose: 3 units Insulin Glargine (Insulin Glargine 300 Units/3 Ml Insuln.Pen) 20 units SUBCUT BID [facility] Stop: 10/07/24 20:59 Last Admin: 10/10/23 08:37 [...] Tablet.Dr) 40 mg PO DAILY [facility] Stop: 10/09/24 08:59 Last Admin: 10/10/23 08:35 Dose: 40 mg Ropinirole HCl (Ropinirole 1 Mg Tablet) 1 mg PO QHS [facility] Stop: 10/08/24 21:59 Last Admin: 10/09/23 21:48 [...] Appearance Clear Urine pH 5.0 Ur Specific [place] 1.008 Urine Protein 30 H Urine Glucose [...] signed by Gigi Cooper MD> 10/10/23 1250 [facility] Work Phone: 1(723) 566-359602-19-2024 Progress note Author Hood Zacarias [facility] October 09, 2023 5:43pm Note Date/Time October 08, 2023 2:13pm [facility] [address] [place] [address] Event Note Signed Patient: Nicole Lora MR#: [id number] [birth year] : 1960 Acct:[id number] Age/Sex: 63 / M Adm Date: 4 Loc: Room: [address] [place] [address] Type: ADM IN Attending Dr: Yesi Murphy [...] 10 Documented By: Hood Zacarias MD 10/08/23 1402 Signed By: <Electronically signed by MD Hood Zacarias> 10/09/23 8717 [facility] Work Phone: 1(926) 570-580902-19-2024 Progress note Author Yesi Murphy [facility] October 09, 2023 2:16pm Note Date/Time October 09, 2023 1:59pm [facility] [address] [place] [address] Hospitalist Progress Note Signed Patient: Nicole Lora MR#: [id number] [birth year] : 1960 Acct:[id number] Age/Sex: 63 / M Adm Date: 4 Loc: Room: [address] [place] [address] Type: ADM IN Attending Dr: Yesi Murphy [...] signed by Yesi Murphy MD> 10/09/23 1416 [facility] Work Phone: 1(435) 251-755302-19-2024 Consult note Author Gigi Cooper [facility] October 09, 2023 11:35am Note Date/Time October 09, 2023 11:35am [facility] [address] [place] [address] Nephrology Consult Note Signed Patient: Nicole Lora MR#: [id number] [birth year] : 1960 Acct:[id number] Age/Sex: 63 / M Adm Date: 4 Loc: Room: [address] [place] [address] Type: ADM IN Attending Dr: Yesi Murphy MD Copies to: MD Mounika Patricio MD, MD~ Providers Consult Date: 10/09/23 Requesting Provider: Yesi Murphy MD Primary Care Provider: Mounika Brooke MD [facility] Reason for Consult: Acute kidney injury [...] mild shortness of breath and body anasarca [facility] Medical History (Updated 10/09/23 @ 11:30 by Gigi Cooper MD) Left toe amputee Asthma Problem List [...] Vial) 40 mg IV-PUSH BID@0800,1600 [facility] Stop: 10/06/24 07:59 Last Admin: 10/09/23 07:49 Dose: 40 mg Gabapentin (Gabapentin 600 Mg Tablet) 600 mg PO BID [facility] Stop: 10/06/24 11:59 Last Admin: 10/09/23 07:50 Dose: 600 mg Glucose (Dextrose 40% Gel 15 Gm Tube) 0 gm PO PRN PRN PRN Reason: Hypoglycemia Stop: 10/06/24 02:05 Heparin Sodium (Porcine) (Heparin 5,000 Unit/Ml Vial) 5,000 unit SUBCUT Q8HR [facility] Stop: 10/06/24 05:59 Last Admin: 10/09/23 06:30 Dose: 5,000 unit Hydralazine HCl (Hydralazine 50 Mg Tablet) 50 mg PO BID [facility] Stop: 10/08/24 08:59 Last Admin: 10/09/23 08:04 Dose: 50 mg Insulin Aspart (Insulin Aspart 300 Units/3 Ml Insuln.Pen) 0 units SUBCUT TID.WM.HS [facility]; Protocol Stop: 10/06/24 07:59 Last Admin: 10/09/23 07:58 Dose: Not Given Insulin Glargine (Insulin Glargine 300 Units/3 Ml Insuln.Pen) 20 units SUBCUT BID [facility] Stop: 10/07/24 20:59 Last Admin: 10/09/23 07:57 [...] Syringe) 0 ml IV-PUSH QSHIFT [facility] Stop: 10/06/24 05:59 Last Admin: 10/09/23 06:31 [...] Cheema Jr., D.OSue10/08/2023 2:58 PM Dictation Location: [place] [address] Any impression(s) listed above is documentation that [...] <Electronically signed by Gigi Cooper MD> 10/09/23 1130 [facility] Work Phone: 1(111) 800-859702-18-2024 Progress note Author Ramses Masters [facility] October 08, 2023 4:03pm Note Date/Time October 08, 2023 12:52pm [facility] [address] [place] [address] Hospitalist Progress Note Signed with Jazzy Patient: Nicole Lora MR#: [id number] [birth year] : 1960 Acct:[id number] Age/Sex: 63 / M Adm Date: 4 Loc: Room: [address] [place] [address] Type: ADM IN Attending Dr: Ramses Masters [...] the daughterand he is usually seen at [facility]. He was recently admitted in August for pneumonia, volume overload and sepsis and now he is back again. The daughter requested the patient to be transferred to [facility]. I explained to thedaughter that at this time the patient is improving and would not have much to be offered more at [facility] but the daughter insistent to have him transferred and that she would feel more comfortable about that. I contacted the [facility] transfer center and spoke with Dr. [...] III?current creatinine seems to be around baseline. ?molder hand is stable 1.7 with diuresis. -Consult nephrology [...] signed by Ramses Masters MD> 10/08/23 1252 [facility] Work Phone: 1(940) 420-245802-17-2024 Progress note Author Ramses Masters [facility] October 07, 2023 1:28pm Note Date/Time October 07, 2023 1:28pm [facility] [address] [place] [address] Hospitalist Progress Note Signed Patient: Nicole Lora MR#: [id number] [birth year] : 1960 Acct:[id number] Age/Sex: 63 / M Adm Date: 4 Loc: Room: [address] [place] [address] Type: ADM IN Attending Dr: Ramses Masters [...] signed by Ramses Masters MD> 10/07/23 1328 [facility] Work Phone: 1([phone]) 575-249102-17-2024 History and physical note Author Tera Nevarez [facility] October 07, 2023 4:13am Note Date/Time October 07, 2023 2:10am [facility] [address] [place] [address] Hospitalist H&P Signed Patient: Nicole Lora MR#: [id number] [birth year] : 1960 Acct:[id number] Age/Sex: 63 / M Adm Date: 4 Loc: Room: [address] [place] [address] Type: ADM IN Attending Dr: Tera Nevarez [...] will be admitted as inpatient to the [facility] telemetry floor. Review of Systems Review of Systems Review of systems: A 10 point review of systems was obtained, negative unless noted in the HPI or below. [facility] Medical History (Updated 10/07/23 @ 02:34 by [...] % (Auto) 11.2 % (.) 10/06/23 20:35 Stanly % (Auto) 10.0 % (.) 10/06/23 20:35 Eos % (Auto) 3.0 % (.) 10/06/23 20:35 Baso % (Auto) 1.0 % (.) 10/06/23 20:35 Nucleat RBC Rel Count 0.1 /100 WBC (0-0.5) 10/06/23 20:35 Neut # (Auto) 5.2 x10E3/uL (1.8-7.7) 10/06/23 20:35 Lymph # (Auto) 0.8 x10E3/uL (1.00-4.8) L 10/06/23 20:35 Stanly # (Auto) 0.7 x10E3/uL (0.0-0.8) 10/06/23 20:35 [...] pH 5.0 (5.0-9.0) 10/06/23 21: Ur Specific [place] 1.013 (1.001-1.030) 10/06/23 21: Urine Protein 100 [...] signed by Tera Nevarez DO> 10/07/23 0413 [facility] Work Phone: 1([phone]) 478-673202-04-2024 Hospital Discharge instructions Patient Education 09/24/2023 21:50:57 [...] Treatment for this condition includes: Antibiotic medicine. Dlku-hec-pdndqcz medicines to treat discomfort. Drinking enough water [...] Follow these instructions at home: Medicines Take sish-wvl-cfudurd and prescription medicines only as told by [...] provider. Document Revised: 03/19/2021 Document Reviewed: 03/19/2021 [employer] Patient Education 2022 [employer]. Follow Up Care 09/24/2023 20:06:30 With:Taz THOMAS Address: [facility] [address]ILIAM HORN [address] [place] [address] Business (1) When:09/26/2023 21:38:10 With:REID BROOKE Address: [address] [facility] [place], [place] [id number] Business (1) When:Within 3 Day(s) [facility]02-04-2024 Evaluation + Plan noteExtracted from: Title:ED Note Author:Jose Miguel Phan DO Date :09/24/23 Acute UTI (N39.0: Urinary tr act infection, site not specified) Orders: cephalexin, 500 mg = 1 cap(s), Oral, q6hr, X 5 day(s), # 20 cap(s), Refills(s) 0, Pharmacy: [facility] #[id number], 180, cm, 09/24/23 20:13:00 EST, Height/Length Dosing, [...] AM Scheduled Provider:BRYAN Bahena APRN, [place] X Location:[facility] [place] Appointment Type:URO New Patient Appointment Date:09/28/2023 01:00:00 PM Scheduled Provider: [facility] Appointment Type:WC HBO () Appointment Date:10/18/2023 09:00:00 AM Scheduled Provider:Taz THOMAS MD Location:[facility] Appointment Type:URO New Patient Diagnostic Tests Pending * Urine Culture 09/24/23 Future Scheduled Tests Radiology* XR Chest 2 Views 05/15/23 * XR Chest 2 Views 05/15/23 [facility]01-28-2024 Hospital Discharge instructions Patient Education 09/17/2023 15:30:40 [...] bag. Secure the leg bag according to marketing director's instructions. This may be above or below [...] on each side. Do this in a imoly-hs-aoah direction. ?If you are male: ?Use one [...] Clean the drainage bag according to the marketing director's instructions or as told byyour health care [...] and water are not available, use hand cigar making machine operator. Always make sure there are no [...] Document Reviewed: 04/07/2022 Elsevier Patient Education 2022 [employer]. Follow Up Care 09/17/2023 14:05:58 With:REID BROOKE Address: [facility] ZOE URBINA [address] [place] [phone] Business (1) When:09/20/2023 15:07:35 Comments:Apply small amount [...] with urologist as instructed by the hospitalist. [facility]01-28-2024 Evaluation + Plan noteExtracted from: Title:ED Note [...] 01:00:00 PM Scheduled Provider: [facility] Appointment Type:[facility] (FT) Future Scheduled Tests Radiology* XR Chest 2 Views 05/15/23 * XR Chest 2 Views 05/15/23 [facility]01-27-2024 [facility] Comment: Electronically Signed By: Kayla Garcia MD\.br\Date and Time Signed: 09/16/23 10:23 [id number] [facility] Comment on above:Result Comment: Electronically Signed By: Kayla Garcia MD\.br\Date and Time Signed: 09/12/23 17:49 [id number] Hospital Discharge instructions Patient Education 08/06/2023 14:18:47 RICE Therapy for Routine Care of Injuries, Ucjr-mm-Jets RICE Therapy for Routine Care of Injuries [...] provider. Document Revised: 05/27/2021 Document Reviewed: 05/27/2021 VMob Patient Education 2022 [employer]. 08/06/2023 14:18:47 Hip Pain Hip Pain The [...] activities that cause pain. General instructions Take dnqp-uiu-cvasqlb and prescription medicines only as told by [...] provider. Document Revised: 12/23/2019 Document Reviewed: 12/23/2019 VMob Patient Education 2022 [employer]. Follow Up Care 08/06/2023 13:03:18 With:REID BROOKE Address: [facility] [address] [address] Business (1) When:08/09/2023 14:06:25 Comments:Follow-up with your primary care provider in 3 to 5 days. If symptoms worsen, do not improve, or new symptoms arise please report back to emergency department for further evaluation. [facility]12-17-2023 Evaluation + Plan noteExtracted from: Title:ED Note Author:Greyson ENGLE, Paddy Bustos te:08/06/23 Right hip pain (M25.551: Babr n in right hip) Orders: XR Hip 2-3 Views Right + Pelvis Future Appointments Appointment Date:08/16/2023 09:30:00 AM Scheduled Provider:Sukh Harrington DPM [facility] Appointment Type:WC Follow Up Visit (FT) Appointment Date:08/24/2023 10:00:00 AM Scheduled Provider:Migue STROUD MD Location:[facility] Appointment Type: Open Future Scheduled Tests Radiology* XR Chest 2 Views 05/15/23 * XR Chest 2 Views 05/15/23 [facility]11-01-2023 Progress note Author Amrik De Guzman [facility] June 21, 2023 12:21pm Note Date/Time June 21, 2023 1 2:21pm [facility] [address] [place] [address] Pulmonology Progress Note Signed Patient: Nicole Lora MR#: [id number] [birth year] : 1960 Acct:[id number] Age/Sex: 63 / M Adm Date: 3 Loc: Room: [address] [place] [address] Type: ADM IN Attending Dr: Alban Arrington [...] he is following up with pulmonology in [place], and supposed to call for sleep study and arrangement of positive pressure ventilation at home. Otherwise he is being discharged today, no further recommendations from my standpoint Documented By: Amrik De Guzman MD 06/21/231218 Signed By: <Electronically signed by Amrik De Guzman MD> 06/21/23 1221 [facility] Work Phone: 1(305) 106-560411-01-2023 Discharge summary Author Alban Arrington [facility] June 21, 2023 1:58pm Note Date/Time June 21, 2023 1 2:17pm [facility] [address] [place] [address] Discharge Summary Signed Patient: Nicole Lora MR#: [id number] [birth year] : 1960 Acct:[id number] Age/Sex: 63 / M Adm Date: 3 Loc: 3T Room: [address] [place] [address]: Alban Arrington DO Copies to: [...] newly initiated on 4 L nasal cannula ibbbcc-gyn-nekgk for ongoing hypoxia. Prior to this he [...] % (Auto) 57.7, Lymph % (Auto) 26.3, Stanly % (Auto) 9.9, Eos % (Auto) 5.4, Baso % (Auto) 0.7, Nucleat RBC Rel Count 0.1, Neut # (Auto) 5.5, Lymph # (Auto) 2.5, Stan[place] # (Auto) 0.9 H, Eos # (Auto) [...] kerlix Please keep previously scheduled appointment with project development director in [place]. Prescriptions: New lisinopril-hydrochlorothiazide 20-25 mg tablet 1 [...] signed by Alban Arrington DO> 06/21/23 1350 [facility] Work Phone: 1(993) 277-327910-31-2023 Consult note Author Amrik De Guzman [facility] June 20, 2023 2:43pm Note Date/Time June 20, 2023 2 :43pm [facility] [address] [place] [address] Pulmonology Consult Note Signed Patient: Nicole Lora MR#: [id number] [birth year] : 1960 Acct:[id number] Age/Sex: 63 / M Adm Date: 3 Loc: Room: [address] [place] [address] Type: ADM IN Attending Dr: Alban Arrington DO Copies to: MD Alban Andersen, DO Reid Brooke DO~ HPI Date/Time [...] coughing spells for which she went to [facility] emergency room, wastold that he had pneumonia [...] of oxygen, he was discharged home from [facility] on 4 L of oxygen. White count was normal his BUN and creatinine were elevated and was diagnosed with chronic kidney disease even previously at [facility]. I do not have any of his previous x- rays, CT, to review, chest x-ray here showed mild left lower lobe infiltrate possibly fibrotic or atelectatic with some volume loss in the left lung, again no baseline film to compare Review of Systems Review of Systems Review of systems: As mentioned above [facility] Medical History (Updated 06/20/23 @ 14:40 by [...] failure or cor pulmonale. Reportedly echo at [facility] did not report pulmonary hypertension but clinical [...] cm of water while he was at [facility] per his history, will try this again tonight * Patient reported to me seeing pulmonology in [place] who are arranging for sleep study and treatment of obstructive sleep apnea * Will need continued diuretic therapy on discharge in addition to continuous oxygen therapy * Maintain inhaled therapy as started by pulmonology in [place], patient will follow-up with them upon discharge Documented By: Amrik De Guzman MD 06/20/23 1434 Signed By: <Electronically signed by Amrik De Guzman MD> 06/20/23 1443 [facility] Work Phone: 1(334) 844-619610-31-2023 Progress note Author Alban Arrington [facility] June 20, 2023 1:37pm Note Date/Time June 20, 2023 9 :48am [facility] [address] [place] [address] Hospitalist Progress Note Signed Patient: Nicole Lora MR#: [id number] [birth year] : 1960 Acct:[id number] Age/Sex: 63 / M Adm Date: 3 Loc: Room: [address] [place] [address] Type: ADM IN Attending Dr: Alban Arrington [...] chronic hypoxic respiratory failure -Recently discharged from [facility] for pneumonia on 4 L oxygen, no [...] congestive heart failure, unspecified type -Echo at [facility] showed EF of 60 to 65% -Await [...] functionand monitor electrolytes while diuresing. Documented By: Yeyn Newman DO, RES 06/20/23 0948 Signed By: <Electronically signed by DO JOSE Newman> 06/20/23 1025 <Electronically signed by Alban Arrington DO> 06/20/23 6806 [facility] Work Phone: 1(656) 682-321410-30-2023 Progress note Author Alban Arrington [facility] June 19, 2023 10:05am Note Date/Time June 19, 2023 1 0:05am [facility] [address] [place] [address] Event Note Signed Patient: Nicole Lora MR#: [id number] [birth year] : 1960 Acct:[id number] Age/Sex: 63 / M Adm Date: 3 Loc: Room: 7H0423-3 Type: ADM IN Attending Dr: Alban Arrington [...] signed by Alban Arrington DO> 06/19/23 1005 [facility] Work Phone: 1(733) 562-892310-30-2023 History and physical note Author Alban Arrington [facility] June 19, 2023 5:20am Note Date/Time June 19, 2023 3 :28am [facility] [address] [place] [address] Hospitalist H&P Signed Patient: Nicole Lora MR#: [id number] [birth year] : 1960 Acct:[id number] Age/Sex: 63 / M Adm Date: 3 Loc: Room: [address] [place] [address] Type: ADM IN Attending Dr: Alban Arrington DO Copies to: DO Reid Ferrer DO~ HPI DATE OF EXAMINATION: 06/19/23 CHIEF COMPLAINT: Swelling HISTORY OF PRESENT ILLNESS: This patient is a 63-year-old male recently hospitalized at [facility] and discharged . He was reportedly treated for pneumonia at that time. He was discharged on prednisone and doxycycline. He appears to have been discharged on 4 L of nasal cannula that he is to wear inhelh-hqo-fbfei. His primary complaint today is worsening edema [...] The patient was subsequently admitted to the [facility] floor for treatment of acute on [...] continued. He only recently was discharged on xxbbk-zqk-zrwou 4 L O2. He may have been [...] negative unless noted below or in HPI [facility] Medical History Amputation of one or more [...] % (Auto) 20.2 % (.) 06/18/23 22:08 Stanly % (Auto) 9.2 % (.) 06/18/23 22:08 Eos % (Auto) 3.1 % (.) 06/18/23 22:08 Baso % (Auto) 0.7 % (.) 06/18/23 22:08 Nucleat RBC Rel Count 0.1 /100 WBC (0-0.5) 06/18/23 22:08 Neut # (Auto) 4.5 x10E3/uL (1.8-7.7) 06/18/23 22:08 Lymph # (Auto) 1.4 x10E3/uL (1.00-4.8) 06/18/23 22:08 Stanly # (Auto) 0.6 x10E3/uL (0.0-0.8) 06/18/23 22:08 [...] pH 5.5 (5.0-9.0) 06/18/23 23:26 Ur Specific [place] 1.020 (1.001-1.030) 06/18/23 23:26 Urine Protein 100 [...] signed by Alban Arrington DO> 06/19/23 0520 [facility] Work Phone: 1(377) 764-426210-26-2023 Evaluation + Plan noteExtracted from: Title:Discharge Note [...] 11 refills, Not taking Freestyle Sage 2 [place], See Instructions Freestyle Sage 2 Sensors, See Instructions, 3 refills gabapentin 600 mg Tab, 600 mg= 1 tab(s), Oral, TID, 11 refills Glucometer, See Instructions Glucometer test strips, See Instructions, 11 refills guaiFENesin 600 mg ER Tab, 1200 mg= 2 tab(s), Oral, BID Insulin Pen Lawrence 31g x 8 mm, See Instructions, 4 [...] tab(s), Oral, Daily With When Contact Information [facility] 06/21/2023 09:30 AM EDT Additional Instructions: Ida LYMAN, Pippa Mabry, PUL, KATY Within 2 to 4 weeks [address] [facility] [place] [address]- Additional Instructions: Call for followup appointment [place] [address]- Business (1) Additional Instructions: Please call the office to make a follow up appiontment. You are new to the office. Thank you. Hypoxia Community-Acquired Pneumonia, Adult, Xbkj-dk-Mbbf Extracted from: Title:APSO Note Author:Annabella Goldman Date:06/15/23 [...] and evaluated the patient with the physician children's nursery assistant. His history, physical exam, assessment and plan [...] to baseline. - No urgent need for WOMEN'S APPAREL SALESPERSON - Hold losartan and metformin for AMY [...] O2 We will await pulmonology recommendations Ordered: [facility] Care/Day Moderate 35 Minutes 03148 2. Elevated brain natriuretic peptide (BNP) level (R79.89: Other specified abnormal findings of blood chemistry) despite echo negative for acute findings, cxr was concerning for fluid congestion 3. TC (obstructive sleep apnea) (G47.33: Obstructive sleep apnea (adult) (pediatric)) BiPap qHS and PRN 4. Hyperkalemia (E87.5: Hyperkalemia) 2/2 elevated glucose as well as elevated Cr, improved Status post [facility] consulted and following trend control glucose [...] at 50ml/hour. - No urgent need for WOMEN'S APPAREL SALESPERSON - Hold losartan and metformin for AMY [...] Title:PCCM progress note Author:Nehal Robles PA-C, Zarina Mabry Date:06/13/23 1. Acute respiratory failure with hypoxia [...] kg over admission weight as well Ordered: [facility] Care/Day High 50 Minutes 31960 2. Elevated brain natriuretic peptide (BNP) level [...] and evaluated the patient with the physician children's nursery assistant. His history, physical exam, assessment and plan [...] strict I's and O's, daily weights Ordered: [facility] Hospital Care/Day High 50 Minutes 46665 2. Elevated brain natriuretic peptide (BNP) level [...] from: Title:Admission H & P Author:Jose LYMAN, [facility] Date:06/11/23 Acute hypoxemic respiratory failure Elevated [...] BID, # 20 cap(s), Refills(s) 0, Pharmacy: [facility] #[id number], 182, cm, 06/11/23 13:54:00 EDT, Height/Length Dosing, [...] 7 tab(s), Refills(s) 0, [facility]: [facility] #[id number], 182, cm, 06/11/23 13:54:00 EDT, Height/Length Dosing, 139.6, kg, 06/11/23 13:54:00 EDT, Weight Dosing Automated Diff B-Type Natriuretic Peptide Basic Metabolic Panel Blood Culture Charcoal Blood Culture Charcoal Blood Gas Art, with Lytes, Gluc, Lact CBC w/ Auto Diff Continuous Pulse Oximetry CTA Chest ED Cardiac Monitoring eGFR Lactic Acid Oxygen Therapy PT & PTT Rapid COVID Antigen ([facility]) Saline Lock Insert Troponin 0 Hr. Troponin 3 Hr. Troponin 6 Hr. Troponin 9 Hr. Future Appointments Appointment Date:06/21/2023 09:30:00 AM Scheduled Provider:Sukh Harrington DPM [facility] Appointment Type: Follow Up Visit (FT) Appointment Date:08/24/2023 10:00:00 AM Scheduled Provider:Migue STROUD MD Location:[facility] Appointment Type: Open Future Scheduled Tests Radiology* XR Chest 2 Views 05/15/23 * XR Chest 2 Views 05/15/23 [facility]10-22-2023 Hospital Discharge instructions Patient Education 06/11/2023 20:24:39 [...] hypoxia. Follow these instructions at home: Take ayac-gft-cxljhfz and prescription medicines only as told by [...] provider. Document Revised: 03/08/2022 Document Reviewed: 03/08/2022 VMob Patient Education 2022 [employer]. 06/11/2023 20:24:39 Community-Acquired Pneumonia, Adult, Aqbd-sb-Qwhg Community-Acquired Pneumonia, Adult Pneumonia is an infection [...] Follow these instructions at home: Medicines Take gwfh-pco-dpsuzas and prescription medicines only as told by [...] cannot use soap and water, use hand cigar making machine operator. Contact a doctor if: You have [...] Document Reviewed: 05/19/2020 Elsevier Patient Education 2022 [employer]. Follow Up Care 06/11/2023 13:47:13 With:Ida LYMAN, AIMEE [place] Address: [address] [facility] [place] [address]- When:2 to 4 weeks Comments:Call for followup appointment With:[facility] Address:Unknown When:06/21/2023 09:30:00 With:Mounika Brooke Address: [address] [place] [address]- Business (1) When: Unknown Comments:Please call the office to make a follow up appiontment. You are new to the office. Thank you. [facility]08-14-2023 Hospital Discharge instructions Follow Up Care 04/03/2023 10:10:15 With:MARLI LYMAN, ЮЛИЯ [place] Address: When:Within 3 Month(s) [facility] 12-15-2022 Hospital Discharge instructions Patient Education 08/04/2022 [...] or polycystic ovarian syndrome (PCOS). Being of Indonesian-Cape Verdean, -Indonesian, /, or / descent. What are the [...] these instructions at home: General instructions Take aqdv-aty-miwweme and prescription medicines only as told by [...] 01/31/2002 Document Revised: 04/24/2017 Document Reviewed: 04/24/2017 VMob Patient Education 2020 [employer]. Follow Up Care 08/04/2022 13:03:59 With:Migue STROUD Address: [address] [place], [place] [id number] [facility] (1) When:08/07/2022 16:52:09 Comments:Call the office [...] at any time to continue your care. [facility]12-15-2022 Evaluation + Plan noteExtracted from: Title:ED Note [...] Date:09/13/2022 01:00:00 PM Scheduled Provider:Migue STROUD MD Location:[facility] Appointment Type:[facility]08-09-2022 Hospital Discharge instructions Follow Up Care 03/29/2022 14:12:55 With:[facility] Address: When:Within 1 Month(s) [facility] 07-20-2022 Hospital Discharge instructions Patient Education 03/09/2022 [...] or polycystic ovarian syndrome (PCOS). Being of Indonesian-Cape Verdean, -Indonesian, /, or / descent. What are the [...] these instructions at home: General instructions Take mrzc-qsm-ersunsn and prescription medicines only as told by [...] 01/31/2002 Document Revised: 04/24/2017 Document Reviewed: 04/24/2017 VMob Patient Education 2020 [employer]. 03/09/2022 01:22:46 COVID-19 COVID-19 COVID-19 is a [...] to fight infection (immunocompromised). Live in a residential or long-term care facility. Have a long-term [...] managed at home with rest, fluids, and adty-ymb-kfgscwa medicines. Treatment for a serious infection usually [...] are safe for you. General instructions Take anyq-lel-mjeylns and prescription medicines only as told by [...] water are not available, usean alcohol-based hand cigar making machine operator. ?Avoid touching your mouth, face, eyes, [...] water are not available, use alcohol-based hand cigar making machine operator. Stay away from other members of [...] have a weak immunity, live in a residential, or have chronic disease. There is no [...] 09/12/2019 Document Revised: 01/02/2020 Document Reviewed: 09/12/2019 VMob Patient Education 2019 agencyQ Follow Up Care 03/08/2022 22:47:15 With:Migue STROUD Address: [address] [place] [address] Business (1) When:03/16/2022 [facility]07-19-2022 Evaluation + Plan noteExtracted from: Title:ED Note [...] Panel Influenza A&B Ag Rapid COVID Antigen ([facility]) Routine Capillary Glucose POC UA With Cult Reflex XR Chest Single View Future Appointments Appointment Date:03/29/2022 01:00:00 PM Scheduled Provider:Migue STROUD MD Location:[facility] Appointment Type:[facility]07-06-2022 Hospital Discharge instructions Follow Up Care 02/23/2022 13:55:05 With:Migue STROUD MD, [facility] Address: When:Within 3 Month(s) [facility] 05-10-2022 Hospital Discharge instructions Follow Up Care 12/28/2021 14:20:03 With:Migue STROUD MD, [facility] Address: When:Within 2 Month(s) [facility] Evaluation + Plan note Future Appointments Appointment Date:01/11/2022 01:40:00 PM Scheduled Provider:Migue STROUD MD Location:[facility] Appointment Type:[facility] Evaluation + Plan note Future Appointments Appointment Date:03/08/2022 01:20:00 PM Scheduled Provider:Migue STROUD MD Location:[facility] Appointment Type:[facility] Evaluation + Plan note Future Appointments Appointment Date:04/08/2022 09:00:00 AM Scheduled Provider: Location:[facility] Appointment Type:[facility] Subsequent Appointment Date:06/27/2022 02:20:00 PM Scheduled Provider:Migue STROUD MD Location:[facility] Appointment Type:[facility] Evaluation + Plan note Future Appointments Appointment Date:06/27/2022 02:20:00 PM Scheduled Provider:Migue STROUD MD Location:[facility] Appointment Type:[facility] Evaluation + Plan note Future Appointments Appointment Date:10/11/2022 02:20:00 PM Scheduled Provider:Migue STROUD MD Location:[facility] Appointment Type:[facility] Evaluation + Plan note Future Appointments Appointment Date:11/03/2022 10:00:00 AM Scheduled Provider:Migue STROUD MD Location:[facility] Appointment Type:[facility] Evaluation + Plan note Future Appointments Appointment Date:03/07/2023 10:40:00 AM Scheduled Provider:Migue STROUD MD Location:[facility] Appointment Type:[facility] Evaluation + Plan note Future Appointments Appointment Date:04/27/2023 09:40:00 AM Scheduled Provider:Migue STROUD MD Location:[facility] Appointment Type:[facility] Evaluation + Plan note Future Appointments Appointment Date:04/25/2023 03:30:00 PM Scheduled Provider:Smooth Harrington DPM [facility] Appointment Type:WC Follow Up Visit (FT) Appointment Date:04/26/2023 09:30:00 AM Scheduled Provider:Sukh Harrington DPM [facility] Appointment Type:WC Follow Up Visit (FT) Appointment Date:04/27/2023 09:40:00 AM Scheduled Provider:Migue STROUD MD Location:[facility] Future Appointments Appointment Date:04/26/2023 09:30:00 AM Scheduled Provider:Sukh Harrington DPM [facility] Appointment Type:WC Follow Up Visit (FT) Appointment Date:05/22/2023 01:20:00 PM Scheduled Provider:Migue STROUD MD Location:[facility] Future Appointments Appointment Date:05/01/2023 11:15:00 AM Scheduled Provider: Location[facility] Appointment Type:WC Assessment (FT) Appointment Date:05/02/2023 04:00:00 PM Scheduled Provider:Smooth Harrington DPM [facility] Appointment Type:WC Follow Up Visit (FT) Appointment Date:05/22/2023 01:20:00 PM Scheduled Provider:Migue STROUD MD Location:[facility] Future Appointments Appointment Date:05/02/2023 04:00:00 PM Scheduled Provider:Smooth Harrington DPM [facility] Appointment Type:WC Follow Up Visit (FT) Appointment Date:05/22/2023 01:20:00 PM Scheduled Provider:Migue STROUD MD Location:[facility] Future Appointments Appointment Date:05/22/2023 01:20:00 PM Scheduled Provider:Migue STROUD MD [facility] Future Appointments Appointment Date:05/16/2023 08:30:00 AM Scheduled Provider: [facility] [facility] Appointment Type:PUL Pulmonary Function Test (FT) Appointment Date:05/22/2023 01:20:00 PM Scheduled Provider:Migue STROUD MD Location:[facility] Appointment Type: Open Appointment Date:06/05/2023 10:30:00 AM Scheduled Provider:Mary Mendez MD Location[facility] Appointment Type:Pulmonary Follow Up (FT) Future Scheduled Tests Radiology* XR Chest 2 Views 05/15/23 * XR Chest 2 [facility] 05/15/23 [facility] Appointment Date:06/05/2023 10:30:00 AM Scheduled Provider:Mary Mendez MD Location[facility] Appointment Type:Pulmonary Follow Up (FT) Appointment Date:06/07/2023 10:15:00 AM Scheduled Provider:Skuh Harrington DPM [facility] Appointment Type:WC Follow Up Visit (FT) Appointment Date:08/24/2023 10:00:00 AM Scheduled Provider:Migue STROUD MD Location:[facility] Appointment Type: Open Future Scheduled Tests Radiology* XR Chest 2 Views 05/15/23 * XR Chest 2 Views 05/15/23 [facility] evaluation + Plan note Future Appointments Appointment Date:06/28/2023 09:45:00 AM Scheduled Provider:Sukh Harrington DPM [facility] Appointment Type:WC Follow Up Visit (FT) Appointment Date:08/24/2023 10:00:00 AM Scheduled Provider:Migue STROUD MD Location:[facility] Appointment Type: Open Future Scheduled Tests Radiology* XR Chest 2 Views 05/15/23 * XR Chest 2 Views 05/15/23 [facility] Appointment Date:06/28/2023 11:45:00 AM Scheduled Provider:Sukh Harrington DPM [facility] Appointment Type:WC Follow Up Visit (FT) Appointment Date:08/24/2023 10:00:00 AM Scheduled Provider:Migue STROUD MD Location:[facility] Appointment Type: Open Future Scheduled Tests Radiology* XR Chest 2 Views 05/15/23 * XR Chest 2 Views 05/15/23 [facility] evaluation + Plan note Future Appointments Appointment Date:07/19/2023 10:30:00 AM Scheduled Provider:Sukh Harrington DPM [facility] Appointment Type:WC Follow Up Visit (FT) Appointment Date:08/24/2023 10:00:00 AM Scheduled Provider:Migue STROUD MD Location:[facility] Appointment Type: Open Future Scheduled Tests Radiology* XR Chest 2 Views 05/15/23 * XR Chest 2 Views 05/15/23 [facility] Appointment Date:08/02/2023 10:45:00 AM Scheduled Provider:Sukh Harrington DPM [facility] Appointment Type:WC Follow Up Visit (FT) Appointment Date:08/24/2023 10:00:00 AM Scheduled Provider:Migue STROUD MD Location:[facility] Appointment Type: Open Future Scheduled Tests Radiology* XR Chest 2 Views 05/15/23 * XR Chest 2 Views 05/15/23 [facility] Appointment Date:08/16/2023 09:30:00 AM Scheduled Provider:Sukh Harrington DPM [facility] Appointment Type:WC Follow Up Visit (FT) Appointment Date:08/24/2023 10:00:00 AM Scheduled Provider:Migue STROUD MD Location:[facility] Appointment Type: Open Future Scheduled Tests Radiology* XR Chest 2 Views 05/15/23 * XR Chest 2 Views 05/15/23 [facility] Appointment Date:08/24/2023 10:00:00 AM Scheduled Provider:Migue STROUD MD Location:[facility] Appointment Type: Open Appointment Date:08/30/2023 09:15:00 AM Scheduled Provider:Sukh Harrington DPM [facility] Appointment Type:WC Follow Up Visit (FT) Future Scheduled Tests Radiology* XR Chest 2 Views 05/15/23 * XR Chest 2 Views 05/15/23 [facility] Appointment Date:08/30/2023 09:15:00 AM Scheduled Provider:Sukh Harrington DPM [facility] Appointment Type:WC Follow Up Visit (FT) Future Scheduled Tests Radiology* XR Chest 2 Views 05/15/23 * XR Chest 2 Views 05/15/23 [facility] Evaluation + Plan note Future Appointments Appointment Date:09/05/2023 03:15:00 PM Scheduled Provider:Smooth Harrington DPM [facility] Appointment Type:WC HBO Eval (FT) Appointment Date:09/13/2023 10:45:00 AM Scheduled Provider:Sukh Harrington DPM [facility] Appointment Type:WC Follow Up Visit (FT) Future Scheduled Tests Radiology* XR Chest 2 Views 05/15/23 * XR Chest 2 Views 05/15/23 [facility] Appointment Date:09/13/2023 10:45:00 AM Scheduled Provider:Sukh Harrington DPM [facility] Appointment Type:WC Follow Up Visit (FT) Appointment Date:09/18/2023 01:00:00 PM Scheduled Provider: [facility] Appointment Type:WC HBO (FT) Future Scheduled Tests Radiology* XR Chest 2 Views 05/15/23 * XR Chest 2 Views 05/15/23 [facility] Appointment Date:09/13/2023 [...] 05/15/23 * XR Chest 2 Views 05/15/23 [facility] App[facility] Appointment Date:10/05/2023 11:00:00 AM Scheduled Provider: Location:[facility] Appointment Type:URO Nurse Visit Appointment Date:10/18/2023 09:00:00 AM Scheduled Provider:Taz THOMAS MD Location:[facility] Appointment Type:URO New Patient Appointment Date:10/18/2023 09:15:00 AM Scheduled Provider:Sukh Harrington DPM [facility] Appointment Type:WC Follow Up Visit (FT) Appointment Date:11/16/2023 09:00:00 AM Scheduled Provider: Location:[facility] Appointment Type:Urology CALL PAT FT Appointment Date:11/20/2023 01:15:00 PM Scheduled Provider: Location:[facility] Appointment Type:Urology FT Future Scheduled Tests Radiology* XR Chest 2 Views 05/15/23 * XR Chest 2 Views 05/15/23 [facility] Appointment Date:10/18/2023 09:00:00 AM Scheduled Provider:Taz THOMAS MD Location:[facility] Appointment Type:URO New Patient Appointment Date:10/18/2023 09:15:00 AM Scheduled Provider:Sukh Harrington DPM [facility] Appointment Type:WC Follow Up Visit (FT) Appointment Date:11/01/2023 02:00:00 PM Scheduled Provider: Location:[facility] Appointment Type:URO Nurse Visit Appointment Date:11/16/2023 09:00:00 AM Scheduled Provider: Location:[facility] Appointment Type:Urology CALL PAT FT Appointment Date:11/20/2023 01:15:00 PM Scheduled Provider: Location:[facility] Appointment Type:Urology FT Future Scheduled Tests Radiology* XR Chest 2 Views 05/15/23 * XR Chest 2 Views 05/15/23 [facility] + Plan note Future Appointments Appointment Date:11/01/2023 02:00:00 PM Scheduled Provider: Location:[facility] Appointment Type:URO Nurse Visit Appointment Date:11/16/2023 09:00:00 AM Scheduled Provider: Location:[facility] Appointment Type:Urology CALL PAT FT Appointment Date:11/20/2023 12:00:00 PM Scheduled Provider: Location:[facility] Appointment Type:Urology FT Appointment Date:11/20/2023 01:15:00 PM Scheduled Provider: Location:[facility] Appointment Type:Urology FT Future Scheduled Tests Radiology* XR Chest 2 Views 05/15/23 * XR Chest 2 Views 05/15/23 [facility] Evaluation + Plan note Future Appointments Appointment Date:11/16/2023 09:00:00 AM Scheduled Provider: Location:[facility] Appointment Type:Urology CALL PAT FT Appointment Date:11/20/2023 12:00:00 PM Scheduled Provider: Location:[facility] Appointment Type:Urology FT Appointment Date:11/20/2023 01:15:00 PM Scheduled Provider: Location:[facility] Appointment Type:Urology FT Future Scheduled Tests Radiology* XR Chest 2 Views 05/15/23 * XR Chest 2 Views 05/15/23 [facility] Evaluation + Plan note Future Appointments Appointment Date:12/15/2023 01:30:00 PM Scheduled Provider: Location:[facility] Appointment Type:URO Nurse Visit Appointment Date:12/19/2023 01:00:00 PM Scheduled Provider:Smooth Harrington DPM [facility] Appointment Type:WC Follow Up Visit (FT) Appointment Date:12/20/2023 09:00:00 AM Scheduled Provider:Sukh Harrington DPM [facility] Appointment Type:WC Follow Up Visit (FT) Appointment Date:01/31/2024 10:30:00 AM Scheduled Provider: Location:[facility] Appointment Type:Urology CALL PAT FT Appointment Date:02/05/2024 01:15:00 PM Scheduled Provider: Location:[facility] Appointment Type:Urology FT Future Scheduled Tests Radiology* XR Chest 2 Views 05/15/23 * XR Chest 2 Views 05/15/23 [facility] Appointment Date:12/19/2023 01:00:00 PM Scheduled Provider:Smooth Harrington DPM [facility] Appointment Type:WC Follow Up Visit (FT) Appointment Date:12/20/2023 11:15:00 AM Scheduled Provider:Sukh Harrington DPM [facility] Appointment Type:WC Follow Up Visit (FT) Appointment Date:01/12/2024 01:00:00 PM Scheduled Provider: Location:[facility] Appointment Type:URO Nurse Visit Appointment Date:01/31/2024 10:30:00 AM Scheduled Provider: Location:[facility] Appointment Type:Urology CALL PAT FT Appointment Date:02/05/2024 01:15:00 PM Scheduled Provider: Location:[facility] Appointment Type:Urology FT Future Scheduled Tests Radiology* XR Chest 2 Views 05/15/23 * XR Chest 2 Views 05/15/23 [facility] Evaluation + Plan note Future Appointments Appointment Date:12/26/2023 01:45:00 PM Scheduled Provider:Smooth Harrington DPM [facility] Appointment Type:WC Follow Up Visit (FT) Appointment Date:01/12/2024 01:00:00 PM Scheduled Provider: Location:[facility] Appointment Type:URO Nurse Visit Appointment Date:01/31/2024 10:30:00 AM Scheduled Provider: Location:[facility] Appointment Type:Urology CALL PAT FT Appointment Date:02/05/2024 01:15:00 PM Scheduled Provider: Location:[facility] Appointment Type:Urology FT Future Scheduled Tests Radiology* XR Chest 2 Views 05/15/23 * XR Chest 2 Views 05/15/23 [facility] Appointment Date:01/02/2024 03:45:00 PM Scheduled Provider:Smooth Harrington DPM [facility] Appointment Type:WC Follow Up Visit (FT) Appointment Date:01/12/2024 01:00:00 PM Scheduled Provider: Location:[facility] Appointment Type:URO Nurse Visit Appointment Date:01/31/2024 10:30:00 AM Scheduled Provider: Location:[facility] Appointment Type:Urology CALL PAT FT Appointment Date:02/05/2024 01:15:00 PM Scheduled Provider: Location:[facility] Appointment Type:Urology FT Future Scheduled Tests Radiology* XR Chest 2 Views 05/15/23 * XR Chest 2 Views 05/15/23 [facility] App[facility] Appointment Date:01/09/2024 02:45:00 PM Scheduled Provider:Smooth Harrington DPM [facility] Appointment Type:WC Follow Up Visit (FT) Appointment Date:01/12/2024 01:00:00 PM Scheduled Provider: Location:[facility] Appointment Type:URO Nurse Visit Appointment Date:01/31/2024 10:30:00 AM Scheduled Provider: Location:[facility] Appointment Type:Urology CALL PAT FT Appointment Date:02/05/2024 01:15:00 PM Scheduled Provider: Location:[facility] Appointment Type:Urology FT Future Scheduled Tests Radiology* XR Chest 2 Views 05/15/23 * XR Chest 2 Views 05/15/23 [facility] App[facility] Appointment Date:01/17/2024 10:00:00 AM Scheduled Provider:Sukh Harrington DPM [facility] Appointment Type:WC Follow Up Visit (FT) Appointment Date:01/31/2024 10:30:00 AM Scheduled Provider: Location:[facility] Appointment Type:Urology CALL PAT FT Appointment Date:02/05/2024 01:15:00 PM Scheduled Provider: Location:[facility] Appointment Type:Urology FT Future Scheduled Tests Radiology* XR Chest 2 Views 05/15/23 * XR Chest 2 Views 05/15/23 [facility] Evaluation + Plan note Future Appointments Appointment Date:01/23/2024 01:00:00 PM Scheduled Provider:Smooth Harrington DPM [facility] Appointment Type:WC Follow Up Visit (FT) Appointment Date:01/31/2024 10:30:00 AM Scheduled Provider: Location:[facility] Appointment Type:Urology CALL PAT FT Appointment Date:02/05/2024 01:15:00 PM Scheduled Provider: Location:[facility] Appointment Type:Urology FT Future Scheduled Tests Radiology* XR Chest 2 Views 05/15/23 * XR Chest 2 Views 05/15/23 [facility] App[facility]ments Appointment Date:01/31/2024 09:45:00 AM Scheduled Provider:Sukh Harrington DPM [facility] Appointment Type:WC Follow Up Visit (FT) Appointment Date:01/31/2024 10:30:00 AM Scheduled Provider: Location:[facility] Appointment Type:Urology CALL PAT FT Appointment Date:02/05/2024 01:15:00 PM Scheduled Provider: Location:[facility] Appointment Type:Urology FT Future Scheduled Tests Radiology* XR Chest 2 Views 05/15/23 * XR Chest 2 Views 05/15/23 [facility] App[facility]ments Appointment Date:02/05/2024 01:00:00 PM Scheduled Provider: Location:[facility] Appointment Type:Urology FT Appointment Date:02/14/2024 10:15:00 AM Scheduled Provider:Sukh Harrington DPM [facility] Appointment Type:WC Follow Up Visit (FT) Future Scheduled Tests Radiology* XR Chest 2 Views 05/15/23 * XR Chest 2 Views 05/15/23 [facility] Future App[facility]ments Appointment Date:02/14/2024 08:30:00 AM Scheduled Provider: Location:[facility] Appointment Type:URO Nurse Visit Appointment Date:02/14/2024 10:15:00 AM Scheduled Provider:Sukh Harrington DPM [facility] Appointment Type:WC Follow Up Visit (FT) Appointment Date:02/28/2024 07:45:00 AM Scheduled Provider:Taz THOMAS MD Location:[facility] Appointment Type:URO Office Visit Future Scheduled Tests Radiology* XR Chest 2 Views 05/15/23 * XR Chest 2 Views 05/15/23 [facility] App[facility] Appointment Date:02/14/2024 08:30:00 AM Scheduled Provider: Location:[facility] Appointment Type:URO Nurse Visit Appointment Date:02/28/2024 07:45:00 AM Scheduled Provider:[facility]SA [facility] Type:[facility]O Office Visit Appointment Date:02/28/2024 10:45:00 AM Scheduled Provider:Sukh Harrington DPM [facility] Appointment Type:WC Follow Up Visit (FT) Future Scheduled Tests Radiology* XR Chest 2 Views 05/15/23 * XR Chest 2 Views 05/15/23 [facility] evaluation + Plan note Future Appointments Appointment Date:02/15/2024 08:30:00 AM Scheduled Provider: Location:[facility] Appointment Type:URO Nurse Visit Appointment Date:02/28/2024 07:45:00 AM Scheduled Provider:Taz THOMAS MD Location:[facility] Appointment Type:URO Office Visit Appointment Date:02/28/2024 10:45:00 AM Scheduled Provider:Sukh Harrington DPM [facility] Appointment Type:WC Follow Up Visit (FT) Future Scheduled Tests Radiology* XR Chest 2 Views 05/15/23 * XR Chest 2 Views 05/15/23 [facility] evaluation + Plan note Future Appointments Appointment Date:02/28/2024 07:45:00 AM Scheduled Provider:Taz THOMAS MD Location:[facility] Appointment Type:URO Office Visit Appointment Date:02/28/2024 10:45:00 AM Scheduled Provider:Sukh Harrington DPM [facility] Appointment Type:WC Follow Up Visit (FT) Future Scheduled Tests Radiology* XR Chest 2 Views 05/15/23 * XR Chest 2 Views 05/15/23 [facility] evaluation + Plan note Future Appointments Appointment Date:03/06/2024 10:45:00 AM Scheduled Provider:Sukh Harrington DPM [facility] Appointment Type:WC Follow Up Visit (FT) Appointment Date:09/04/2024 03:15:00 PM Scheduled Provider:Taz THOMAS MD Location:[facility] Appointment Type:URO Office Visit Future Scheduled Tests Laboratory* Basic Metabolic Panel 02/28/24 Radiology* XR Chest 2 Views 05/15/23 * XR Chest 2 Views 05/15/23 [facility] evaluation + Plan note Future Appointments Appointment Date:03/13/2024 10:30:00 AM Scheduled Provider:Sukh Harrington DPM [facility] Appointment Type:WC Follow Up Visit (FT) Appointment Date:09/04/2024 03:15:00 PM Scheduled Provider:Taz THOMAS MD Location:[facility] Appointment Type:URO Office Visit Future Scheduled Tests Laboratory* Basic Metabolic Panel 02/28/24 Radiology* XR Chest 2 Views 05/15/23 * XR Chest 2 Views 05/15/23 [facility] App[facility]ments Appointment Date:03/13/2024 10:30:00 AM Scheduled Provider:Sukh Harrington DPM [facility] Appointment Type:WC Follow Up Visit (FT) Appointment Date:09/04/2024 03:15:00 PM Scheduled Provider:Taz THOMAS MD Location:[facility] Appointment Type:URO Office Visit Future Scheduled Tests Radiology* XR Chest 2 Views 05/15/23 * XR Chest 2 Views 05/15/23 [facility] Future App[facility]ments Appointment Date:09/04/2024 03:15:00 PM Scheduled Provider:Taz THOMAS MD Location:[facility] Appointment Type:URO Office Visit [facility] evaluation note* Diagnosis Onset Date Resolution Status Edema acute Hypertension acute Hypoxemia acute Volume overload acute [facility] Work Phone: evaluation note* Diagnosis Onset Date Resolution Status Acute on chronic respiratory failure with hypoxia and hypercapnia acute Edema acute Hypertension acute Hypertensive urgency acute Hypoxemia acute Obesity hypoventilation syndrome acute Obstructive sleep apnea acut e Respiratory failure acute Right heart failure acute Volume overload acute [facility] Work Phone: [email or web address] note* Diagnosis Onset Date Resolution Status Acute respiratory distress a cute CHF (congestive heart failure) acute COPD (chronic obstructive pulmonary disease) acute Lymphedema acute [facility] Work Phone: evaluation note* Diagnosis Onset Date Resolution Status Acute on chronic respiratory failure with hypoxia and hypercapnia acute Acute respiratory distress a cute AMY (acute kidney injury) ac [place] CHF (congestive heart failure) acute CKD (chronic kidney disease) stage 3, GFR 30-59 ml/min acute COPD (chronic obstructive pulmonary disease) acute Diabetes mellitus, type 2 ac [place] Hyperkalemia acute Hypertension acute Lymphedema acute Obesity hypoventilation syndrome acute Urine retention acute [facility] Work Phone: Evaluation note* Diagnosis Onset Date Resolution Status CHF (congestive heart failure) acute CKD (chronic kidney disease) stage 3, GFR 30-59 ml/min acute COPD (chronic obstructive pulmonary disease) acute Diabetes mellitus, type 2 ac [place] Hypertension acute Lymphedema acute Obesity hypoventilation syndrome [...] disease) acute Diabetes mellitus, type 2 ac [place] Diastolic heart failure acut e Edema acute Hypernatremia acute Hypertension acute [id number] acute Lymphedema acute Metabolic alkalosis with respiratory acidosis acute Obesity hypoventilation syndrome acute Type 2 diabetes mellitus wit h diabetic chronic kidney disease acute Urine retention acute Hyperkalemia resolved [facility] Work Phone: Evaluation note* Diagnosis 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, unspecified proliferative retinopathy type ([facility]/HCC)- Primary documented in this encounter [facility] HealthcareEvaluation note* Diagnosis Encounter for Medicare annual wellness exam- Primary Type 2 diabetes mellitus with hyperglycemia, without long-term current use of insulin ([facility]) RLS (restless legs syndrome) Restless legs syndrome (RLS) Chronic hypoxemic respiratory failure (CMS/HCC) Chronic respiratory failure Stage 3b chronic kidney disease (HCC) (CMS/HCC) 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 Morbid obesity (CMS/HCC) Morbid obesity BMI 40.0-44.9, adult ([facility]/HCC) Other diabetic neurological complication associated with type 2 diabetes mellitus (CMS/HCC) TC (obstructive sleep apnea) Obstructive sleep apnea (adult) (pediatric) Restless leg syndrome Restless legs syndrome (RLS) Acute on chronic respiratory failure with hypoxia and hypercapnia ([facility]/HCC) Obesity hypoventilation syndrome ([facility]) Obesity hypoventilation syndrome Hypertension, unspecified type ([facility]) Varicose veins of both lower extremities, unspecified whether complicated Gastroesophageal reflux disease, unspecified whether esophagitis present 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 ([facility]) Mixed hyperlipidemia ([facility]) Mixed hyperlipidemia Long-term insulin use ([facility]) Type 2 diabetes mellitus with hyperglycemia, with long-term current use of insulin ([facility])- Primary Chronic cough Cough Chest wall pain Painful respiration Non-recurrent acute serous otitis media of right ear documented in this encounter [facility] HealthcareEvaluation note* Diagnosis Encounter for Medicare annual wellness exam- Primary Type 2 diabetes mellitus with hyperglycemia, without long-term current use of insulin ([facility]) RLS (restless legs syndrome) Restless legs syndrome (RLS) Chronic hypoxemic respiratory failure ([facility]) Chronic respiratory failure Stage 3b chronic kidney disease (HCC) ([facility] 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 Morbid obesity ([facility]) Morbid obesity BMI 40.0-44.9, adult ([facility]) Other diabetic neurological complication associated with type 2 diabetes mellitus ([facility]) TC (obstructive sleep apnea) Obstructive sleep apnea (adult) (pediatric) Restless leg syndrome Restless legs syndrome (RLS) Acute on chronic respiratory failure with hypoxia and hypercapnia ([facility]) Obesity hypoventilation syndrome ([facility]) Obesity hypoventilation syndrome Hypertension, unspecified type ([facility]) Varicose veins of both lower extremities, unspecified whether complicated Gastroesophageal reflux disease, unspecified whether esophagitis present 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 ([facility]) Mixed hyperlipidemia ([facility] Mixed hyperlipidemia Long-term insulin use ([facility]) Acute pain of right shoulder- Primary Chronic hypoxemic respiratory failure ([facility]) Chronic respiratory failure Hypertension, unspecified type ([facility]) BMI 40.0-44.9, adult ([facility]) Morbid obesity ([facility]) Morbid obesity Type 2 diabetes mellitus with hyperglycemia, with long-term current use of insulin ([facility]) documented in this encounter [facility] HealthcareEvaluation note* Diagnosis Encounter for Medicare annual wellness exam- Primary Type 2 diabetes mellitus with hyperglycemia, without long-term current use of insulin ([facility]) RLS (restless legs syndrome) Restless legs syndrome (RLS) Chronic hypoxemic respiratory failure ([facility]) Chronic respiratory failure Stage 3b chronic kidney disease (HCC) ([facility] 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 Morbid obesity ([facility] Morbid obesity BMI 40.0-44.9, adult ([facility]) Other diabetic neurological complication associated with type 2 diabetes mellitus ([facility]) TC (obstructive sleep apnea) Obstructive sleep apnea (adult) (pediatric) Restless leg syndrome Restless legs syndrome (RLS) Acute on chronic respiratory failure with hypoxia and hypercapnia ([facility]) Obesity hypoventilation syndrome ([facility]) Obesity hypoventilation syndrome Hypertension, unspecified type ([facility]) Varicose veins of both lower extremities, unspecified whether complicated Gastroesophageal reflux disease, unspecified whether esophagitis present 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 ([facility]) Mixed hyperlipidemia ([facility]) Mixed hyperlipidemia Long-term insulin use ([facility]) Difficulty walking- Primary Difficulty in walking Acute on chronic respiratory failure with hypoxia and hypercapnia ([facility]) Hypertension, unspecified type ([facility]) Type 2 diabetes mellitus with hyperglycemia, with long-term current use of insulin ([facility]) Morbid obesity ([facility]) Morbid obesity BMI 40.0-44.9, adult ([facility]) Type 2 diabetes mellitus with hyperglycemia, with long-term current use of insulin ([facility]) documented in this encounter [facility] HealthcareEvaluation note* Diagnosis Encounter for Medicare annual wellness exam- Primary Type 2 diabetes mellitus with hyperglycemia, without long-term current use of insulin ([facility]) RLS (restless legs syndrome) Restless legs syndrome (RLS) Chronic hypoxemic respiratory failure ([facility]) Chronic respiratory failure Stage 3b chronic kidney disease (HCC) ([facility] 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 Morbid obesity ([facility]) Morbid obesity BMI 40.0-44.9, adult ([facility]) Other diabetic neurological complication associated with type 2 diabetes mellitus ([facility]) TC (obstructive sleep apnea) Obstructive sleep apnea (adult) (pediatric) Restless leg syndrome Restless legs syndrome (RLS) Acute on chronic respiratory failure with hypoxia and hypercapnia ([facility]) Obesity hypoventilation syndrome ([facility]) Obesity hypoventilation syndrome Hypertension, unspecified type ([facility]) Varicose veins of both lower extremities, unspecified whether complicated Gastroesophageal reflux disease, unspecified whether esophagitis present 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 ([facility]) Mixed hyperlipidemia ([facility]) Mixed hyperlipidemia Long-term insulin use ([facility]) Type 2 diabetes mellitus with hyperglycemia, with long-term current use of insulin ([facility])- Primary Insulin long-term use ([facility]) Encounter for long-term (current) use of insulin Vitamin D deficiency Encounter for dietary consultation Hyperlipemia, mixed ([facility]) Mixed hyperlipidemia Primary hypertension ([facility]) Unspecified essential hypertension Class 2 severe obesity due to excess calories with serious comorbidity and body mass index (BMI) of 38.0 to 38.9 in adult ([facility]) documented in this encounter [facility] HealthcareEvaluation note* Diagnosis Encounter for Medicare annual wellness exam- Primary Type 2 diabetes mellitus with hyperglycemia, without long-term current use of insulin ([facility]) RLS (restless legs syndrome) Restless legs syndrome (RLS) Chronic hypoxemic respiratory failure ([facility]) Chronic respiratory failure Stage 3b chronic kidney disease (HCC) ([facility] 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 Morbid obesity ([facility]) Morbid obesity BMI 40.0-44.9, adult ([facility]) Other diabetic neurological complication associated with type 2 diabetes mellitus ([facility]) TC (obstructive sleep apnea) Obstructive sleep apnea (adult) (pediatric) Restless leg syndrome Restless legs syndrome (RLS) Acute on chronic respiratory failure with hypoxia and hypercapnia ([facility]) Obesity hypoventilation syndrome ([facility]) Obesity hypoventilation syndrome Hypertension, unspecified type ([facility]) Varicose veins of both lower extremities, unspecified whether complicated Gastroesophageal reflux disease, unspecified whether esophagitis present 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 ([facility]) Mixed hyperlipidemia ([facility]) Mixed hyperlipidemia Long-term insulin use ([facility]) 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, unspecified proliferative retinopathy type ([facility])- Primary documented in this encounter [facility] HealthcareEvaluation note* Diagnosis 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, unspecified proliferative retinopathy type ([facility])- Primary 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 1 diabetes mellitus ([facility]) documented in this encounter [facility] HealthcareEvaluation note* Diagnosis 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, unspecified proliferative retinopathy type ([facility])- Primary documented in this encounter [facility] HealthcareEvaluation note* Diagnosis Encounter for Medicare annual wellness exam- Primary Type 2 diabetes mellitus with hyperglycemia, without long-term current use of insulin ([facility]) RLS (restless legs syndrome) Restless legs syndrome (RLS) Chronic hypoxemic respiratory failure ([facility]) Chronic respiratory failure Stage 3b chronic kidney disease (HCC) ([facility] 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 Morbid obesity ([facility]) Morbid obesity BMI 40.0-44.9, adult ([facility]) Other diabetic neurological complication associated with type 2 diabetes mellitus ([facility]) TC (obstructive sleep apnea) Obstructive sleep apnea (adult) (pediatric) Restless leg syndrome Restless legs syndrome (RLS) Acute on chronic respiratory failure with hypoxia and hypercapnia ([facility]) Obesity hypoventilation syndrome ([facility]) Obesity hypoventilation syndrome Hypertension, unspecified type ([facility]) Varicose veins of both lower extremities, unspecified whether complicated Gastroesophageal reflux disease, unspecified whether esophagitis present 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 ([facility] Mixed hyperlipidemia ([facility] Mixed hyperlipidemia Long-term insulin use ([facility]) documented in this encounter [facility] HealthcareEvaluation note* Diagnosis Encounter for Medicare annual wellness exam- Primary Type 2 diabetes mellitus with hyperglycemia, without long-term current use of insulin ([facility]) RLS (restless legs syndrome) Restless legs syndrome (RLS) Chronic hypoxemic respiratory failure ([facility]) Chronic respiratory failure Stage 3b chronic kidney disease (HCC) ([facility] 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 Morbid obesity ([facility]) Morbid obesity BMI 40.0-44.9, adult ([facility]) Other diabetic neurological complication associated with type 2 diabetes mellitus ([facility]) TC (obstructive sleep apnea) Obstructive sleep apnea (adult) (pediatric) Restless leg syndrome Restless legs syndrome (RLS) Acute on chronic respiratory failure with hypoxia and hypercapnia ([facility]) Obesity hypoventilation syndrome ([facility]) Obesity hypoventilation syndrome Hypertension, unspecified type ([facility]) Varicose veins of both lower extremities, unspecified whether complicated Gastroesophageal reflux disease, unspecified whether esophagitis present 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 ([facility]) Mixed hyperlipidemia ([facility]) Mixed hyperlipidemia Long-term insulin use ([facility]) Type 2 diabetes mellitus with hyperglycemia, with long-term current use of insulin ([facility])- Primary Insulin long-term use ([facility]) Encounter for long-term (current) use of insulin Vitamin D deficiency Encounter for dietary consultation Hyperlipemia, mixed ([facility]) Mixed hyperlipidemia Primary hypertension ([facility]) Unspecified essential hypertension documented in this encounter [facility] HealthcareEvaluation note* Diagnosis Encounter for Medicare annual wellness exam- Primary Type 2 diabetes mellitus with hyperglycemia, without long-term current use of insulin ([facility]) RLS (restless legs syndrome) Restless legs syndrome (RLS) Chronic hypoxemic respiratory failure ([facility]) Chronic respiratory failure Stage 3b chronic kidney disease (HCC) ([facility] 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 Morbid obesity ([facility] Morbid obesity BMI 40.0-44.9, adult ([facility]) Other diabetic neurological complication associated with type 2 diabetes mellitus TC (obstructive sleep apnea) Obstructive sleep apnea (adult) (pediatric) Restless leg syndrome Restless legs syndrome (RLS) Acute on chronic respiratory failure with hypoxia and hypercapnia ([facility]) Obesity hypoventilation syndrome ([facility]) Obesity hypoventilation syndrome Hypertension, unspecified type ([facility]) Varicose veins of both lower extremities, unspecified whether complicated Gastroesophageal reflux disease, unspecified whether esophagitis present 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 Mixed hyperlipidemia ([facility]) Mixed hyperlipidemia Long-term insulin use ([facility] Chronic hypoxemic respiratory failure ([facility])- Primary Chronic respiratory failure Acute cough Chest congestion Other symptoms involving respiratory system and chest Type 2 diabetes mellitus with hyperglycemia, with long-term current use of insulin ([facility]) Long-term insulin use ([facility]) Difficulty walking Difficulty in walking Leg weakness, bilateral Muscle weakness (generalized) BMI 35.0-35.9,adult Morbid obesity ([facility]) Morbid obesity Type 2 diabetes mellitus with diabetic chronic kidney disease ([facility]) Chronic kidney disease, stage 3b (HCC) ([facility]) Essential (primary) hypertension ([facility] Unspecified essential hypertension Acquired absence of left foot ([facility]) Need for immunization against influenza Need for prophylactic vaccination and inoculation against influenza Need for pneumococcal vaccination Need for prophylactic vaccination against streptococcus pneumoniae (pneumococcus) documented in this encounter [facility] HealthcareEvaluation note* Diagnosis Encounter for Medicare annual wellness exam- Primary Type 2 diabetes mellitus with hyperglycemia, without long-term current use of insulin ([facility]) RLS (restless legs syndrome) Restless legs syndrome (RLS) Chronic hypoxemic respiratory failure ([facility]) Chronic respiratory failure Stage 3b chronic kidney disease (HCC) ([facility] 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 Morbid obesity ([facility]) Morbid obesity BMI 40.0-44.9, adult ([facility]) Other diabetic neurological complication associated with type 2 diabetes mellitus TC (obstructive sleep apnea) Obstructive sleep apnea (adult) (pediatric) Restless leg syndrome Restless legs syndrome (RLS) Acute on chronic respiratory failure with hypoxia and hypercapnia ([facility]) Obesity hypoventilation syndrome ([facility]) Obesity hypoventilation syndrome Hypertension, unspecified type ([facility]) Varicose veins of both lower extremities, unspecified whether complicated Gastroesophageal reflux disease, unspecified whether esophagitis present 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 Mixed hyperlipidemia ([facility]) Mixed hyperlipidemia Long-term insulin use ([facility]) Primary osteoarthritis of both knees- Primary Type 2 diabetes mellitus with hyperglycemia, with long-term current use of insulin ([facility]) documented in this encounter [facility] HealthcareEvaluation note* Diagnosis Encounter for Medicare annual wellness exam- Primary Type 2 diabetes mellitus with hyperglycemia, without long-term current use of insulin ([facility]) RLS (restless legs syndrome) Restless legs syndrome (RLS) Chronic hypoxemic respiratory failure ([facility]) Chronic respiratory failure Stage 3b chronic kidney disease (HCC) ([facility] 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 Morbid obesity ([facility] Morbid obesity BMI 40.0-44.9, adult ([facility]) Other diabetic neurological complication associated with type 2 diabetes mellitus TC (obstructive sleep apnea) Obstructive sleep apnea (adult) (pediatric) Restless leg syndrome Restless legs syndrome (RLS) Acute on chronic respiratory failure with hypoxia and hypercapnia ([facility]) Obesity hypoventilation syndrome ([facility]) Obesity hypoventilation syndrome Hypertension, unspecified type ([facility]) Varicose veins of both lower extremities, unspecified whether complicated Gastroesophageal reflux disease, unspecified whether esophagitis present 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 Mixed hyperlipidemia ([facility]) Mixed hyperlipidemia Long-term insulin use ([facility]) Type 2 diabetes mellitus with hyperglycemia, with long-term current use of insulin ([facility])- Primary Insulin long-term use ([facility] Encounter for long-term (current) use of insulin Vitamin D deficiency Encounter for dietary consultation Hyperlipemia, mixed ([facility]) Mixed hyperlipidemia Primary hypertension ([facility]) Unspecified essential hypertension documented in this encounter [facility] HealthcareEvaluation note* Diagnosis Encounter for Medicare annual wellness exam- Primary Type 2 diabetes mellitus with hyperglycemia, without long-term current use of insulin ([facility]) RLS (restless legs syndrome) Restless legs syndrome (RLS) Chronic hypoxemic respiratory failure ([facility]) Chronic respiratory failure Stage 3b chronic kidney disease (HCC) ([facility]) 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 Morbid obesity ([facility]) Morbid obesity BMI 40.0-44.9, adult ([facility]) Other diabetic neurological complication associated with type 2 diabetes mellitus TC (obstructive sleep apnea) Obstructive sleep apnea (adult) (pediatric) Restless leg syndrome Restless legs syndrome (RLS) Acute on chronic respiratory failure with hypoxia and hypercapnia ([facility]) Obesity hypoventilation syndrome ([facility]) Obesity hypoventilation syndrome Hypertension, unspecified type ([facility]) Varicose veins of both lower extremities, unspecified whether complicated Gastroesophageal reflux disease, unspecified whether esophagitis present 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 Mixed hyperlipidemia ([facility]) Mixed hyperlipidemia Long-term insulin use ([facility]) Muscle cramps- Primary Varicose veins of both lower extremities, unspecified whether complicated Type 2 diabetes mellitus with hyperglycemia, with long-term current use of insulin ([facility] [place]) Essential (primary) hypertension ([facility]) Unspecified essential hypertension documented in this encounter [facility] HealthcareEvaluation note* Diagnosis Encounter for Medicare annual wellness exam- Primary Type 2 diabetes mellitus with hyperglycemia, without long-term current use of insulin ([facility]) RLS (restless legs syndrome) Restless legs syndrome (RLS) Chronic hypoxemic respiratory failure ([facility]) Chronic respiratory failure Stage 3b chronic kidney disease (HCC) ([facility] [place] [facility] 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 Morbid obesity ([facility]) Morbid obesity BMI 40.0-44.9, adult ([facility]) Other diabetic neurological complication associated with type 2 diabetes mellitus TC (obstructive sleep apnea) Obstructive sleep apnea (adult) (pediatric) Restless leg syndrome Restless legs syndrome (RLS) Acute on chronic respiratory failure with hypoxia and hypercapnia (CMS/HCC) Obesity hypoventilation syndrome ([facility]) Obesity hypoventilation syndrome Hypertension, unspecified type ([facility]) Varicose veins of both lower extremities, unspecified whether complicated Gastroesophageal reflux disease, unspecified whether esophagitis present 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 Mixed hyperlipidemia ([facility]) Mixed hyperlipidemia Long-term insulin use ([facility]) Anxiousness- Primary Anxiety state, unspecified documented in this encounter [facility]* Diagnosis Encounter for Medicare annual wellness exam- Primary Type 2 diabetes mellitus with hyperglycemia, without long-term current use of insulin ([facility]) RLS (restless legs syndrome) Restless legs syndrome (RLS) Chronic hypoxemic respiratory failure (HCC) Chronic respiratory failure Stage 3b chronic kidney disease ([facility]) 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 Morbid obesity ([facility]) Morbid obesity BMI 40.0-44.9, adult ([facility]) Other diabetic neurological complication associated with type 2 diabetes mellitus ([facility]) TC (obstructive sleep apnea) Obstructive sleep apnea (adult) (pediatric) Restless leg syndrome Restless legs syndrome (RLS) Acute on chronic respiratory failure with hypoxia and hypercapnia (HCC) Obesity hypoventilation syndrome ([facility]) Obesity hypoventilation syndrome Hypertension, unspecified type Varicose [...] (HCC) Long-term insulin use (HCC) Morbid obesity ([facility]) Morbid obesity BMI 36.0-36.9,adult documented in this encounter [facility]* Diagnosis Encounter for Medicare annual wellness exam- Primary Type 2 diabetes mellitus with hyperglycemia, without long-term current use of insulin ([facility]) RLS (restless legs syndrome) Restless legs syndrome (RLS) Chronic hypoxemic respiratory failure (HCC) Chronic respiratory failure Stage 3b chronic kidney disease ([facility]) 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 Morbid obesity (CMS-HCC) Morbid obesity BMI 40.0-44.9, adult ([facility]) Other diabetic neurological complication associated with type 2 diabetes mellitus (HCC) TC (obstructive sleep apnea) Obstructive sleep apnea (adult) (pediatric) Restless leg syndrome Restless legs syndrome (RLS) Acute on chronic respiratory failure with hypoxia and hypercapnia (HCC) Obesity hypoventilation syndrome ([facility]) Obesity hypoventilation syndrome Hypertension, unspecified [...] (primary) hypertension Unspecified essential hypertension Morbid obesity ([facility]) Morbid obesity BMI 38.0-38.9,adult documented [...] No change in regimen. [facility] Narrative No data available for this section [facility] Hospital Discharge instructions No data available for this section [facility] Hospital Discharge instructions Additional Instructions Continue oxygen [...] kerlix Please keep previously scheduled appointment with project development director in [place]. [facility] Work Phone: Progress note No data available for this section [facility] Rehabilitation - Outpatient (Routine) - Authorized Specialty Diagnoses / Procedures Referred By Contac t Referred To Contact Physical Therapy Diagnoses Difficulty in walking, not elsewhere classified Other symptoms and signs involving the musculoskeletal system Acquired absence of left foot (CMS/HCC) Procedures IN PHYS THERAPY EVALUATION Mounika Brooke MD [address] [place] [address] Phone: tel: fax: Mone Mcguire, PT [address] [facility] [address] [place] [address] Phone: tel: fax: Referral ID Status Reason Start Date Expiration Date V isits Requested Visits Authorized [id number] Authorized 12/11/2024 06/09/2025 99 99 [facility] [...] 2 Diastolic heart failure Edema Hypernatremia Hypertension [id number] Lymphedema Metabolic alkalosis with respiratory acidosis Obesity [...] Provider Active Start : October 09, 2023 Ggii Cooper MD Attending Provider Active Star t: [...] Migue Stroud MD Primary Care Provider Active Underground Drill Operator Relationship Specialty Start Date End Date Mounika Brooke MD [address] [place] [address] PCP - General Family Medicine 07/27/23 Team [...] October 13, 2023 End: October 13, 2023 Underground Drill Operator Relationship Specialty Start Date End Date Mounika Brooke MD [address] [place] [address] PCP - General Family Medicine 10/23/23 [place] [address] [place] [address] Physician Nephrology 10/31/23 Team Status: Inactive Member [...] Bladimir Story MD Other Provider Active Start: [facility] 2023 End: November 17, 2023 Immanuel Pozo [...] Cooper MD Other Provider Active Start: 2023 Underground Drill Operator Relationship Specialty Start Date End Date Mounika Brooke MD [address] [place] [address] PCP - General Family Medicine 10/23/23 [place] [address] [facility] [address] [place], [place] [id number] Physician Nephrology 10/31/23 Underground Drill Operator Relationship Specialty Start Date End Date Muonika Brooke MD [address] [place] [address] PCP - General Family Medicine 10/23/23 [place] [address] [facility] [address] [place], [place] [id number] Physician Nephrology 10/31/23 Underground Drill Operator Relationship Specialty Start Date End Date Mounika Brooke MD [address] [place] [address] PCP - General Family Medicine 07/27/23 Underground Drill Operator Relationship Specialty Start Date End Date Mounika Brooke MD [address] [place] [address] PCP - General Family Medicine 07/27/23 Underground Drill Operator Relationship Specialty Start Date End Date Mounika Brooke MD [address] [place] [address] PCP - General Family Medicine 07/27/23 Mounika Brooke MD [address] [place] [address] PCP - [facility] 01/20/24 08/20/24 Underground Drill Operator Relationship Specialty Start Date End Date Mounika Brooke MD [address] [place] [address] PCP - General Family Medicine 07/27/23 Mounika Brooke MD [address] [place] [address] PCP - [facility] 01/20/24 08/20/24 Jennifer Short PA [address] [place] [address] Physician Drink Waiter Family Medicine 06/24/24 Underground Drill Operator Relationship Specialty Start Date End Date Mounika Brooke MD [address] [place] [address] PCP - General Family Medicine 07/27/23 Mounika Brooke MD [address] [place] [address] [facility] 01/20/24 08/20/24 Underground Drill Operator Relationship Specialty Start Date End Date Mounika Brooke MD [address] [place] [address] PCP - General Family Medicine 07/27/23 Mounika Brooke MD [address] [place] [address] PCP [facility] 01/20/24 08/20/24 Jennifer Short PA [address] [place] [address] Physician Drink Waiter Family Medicine 06/24/24 Underground Drill Operator Relationship Specialty Start Date End Date Mounika Brooke MD [address] [place] [address] PCP - General Family Medicine 07/27/23 Mounika Brooke MD [address] [place] [address] [facility] 01/20/24 08/20/24 Jennifer Short PA [address] [place] [address] Physician Drink Waiter Family Medicine 06/24/24 Underground Drill Operator Relationship Specialty Start Date End Date Mounika Brooke MD [address] [place] [address] PCP - [facility] Family [facility] 07/27/23 Mounika Brooke MD [address] [place] [address] [facility] 01/20/24 08/20/24 Jennifer Short PA [address] [place] [address] Physician Drink Waiter Family Medicine 06/24/24 Underground Drill Operator Relationship Specialty Start Date End Date Mounika Brooke MD [address] [place] [address] PCP [facility] 07/27/23 Mounika Brooke MD [address] [place] [address] [facility] 01/20/24 08/20/24 Jennifer Short PA [address] [place] [address] Physician Drink Waiter Family Medicine 06/24/24 Underground Drill Operator Relationship Specialty Start Date End Date Mounika Brooke MD [address] [place] [address] PCP - General Family Medicine 07/27/23 Mounika Brooke MD [address] [place] [address] [facility] 01/20/24 08/20/24 Jennifer Short PA [address] [place] [address] Physician Drink Waiter Family Medicine 06/24/24 Underground Drill Operator Relationship Specialty Start Date End Date Mounika Brooke MD [address] [place] [address] PCP - [facility] 07/27/23 Mounika Brooke MD [address] [place] [address] [facility] 01/20/24 08/20/24 Jennifer Short PA [address] [place] [address] Physician Drink Waiter Family Medicine 06/24/24 Underground Drill Operator Relationship Specialty Start Date End Date Mounika Brooke MD [address] [place] [address] PCP - General Family Medicine 07/27/23 Underground Drill Operator Relationship Specialty Start Date End Date Mounika Brooke MD [address] [place] [address] PCP - [facility] Medicine 07/27/23 Underground Drill Operator Relationship Specialty Start Date End Date Mounika Brooke MD [address] [place] [address] PCP - General [facility] Medicine 07/27/23 Underground Drill Operator Relationship Specialty Start Date End Date Mounika Brooke MD [address] [place] [address] PCP - [facility] Medicine 07/27/23 Underground Drill Operator Relationship Specialty Start Date End Date Mounika Brooke MD [address] [place] [address] PCP - General [facility] 07/27/23 Underground Drill Operator Relationship Specialty Start Date End Date Mounika Brooke MD [address] [place] [address] PCP - General [facility] 07/27/23 Underground Drill Operator Relationship Specialty Start Date End Date Mounika Brooke MD [address] [place] [address] PCP - General Family Medicine 07/27/23 Jennifer Short PA [address] [place] [address] Physician Drink Waiter Family Medicine 06/24/24 Underground Drill Operator Relationship Specialty Start Date End Date Mounika Brooke MD [address] [place] [address] PCP - General Family Medicine 07/27/23 Jennifer Short PA [address] [place] [address] Physician Drink Waiter Family Medicine 06/24/24 Underground Drill Operator Relationship Specialty Start Date End Date Mounika Brooke MD [address] [place] [address] PCP - General Family Medicine 07/27/23 Mounika Brooke MD [address] [place] [address] PCP - [facility] 11/19/24 Jennifer Short PA [address] [place] [address] Physician Drink Waiter Family Medicine 06/24/24 Janice Kevin LSW Automatic Pad Making Machine Operator Family Medicine 12/04/24 Underground Drill Operator Relationship Specialty Start Date End Date Mounika Brooke MD [address] [place] [address] PCP - General Family Medicine 07/27/23 Mounika Brooke MD [address] [place] [address] PCP - [facility] 11/19/24 Jennifer Short PA [address] [place] [address] Physician Drink Waiter Family Medicine 06/24/24 Janice Kevin LSW Automatic Pad Making Machine Operator Family Medicine 12/04/24 12/10/24 Underground Drill Operator Relationship Specialty Start Date End Date Mounika Brooke MD [address] [place] [address] PCP - General Family Medicine 07/27/23 Mounika Brooke MD [address] [place] [address] PCP - [facility] 11/19/24 Jennifer Short PA [address] [place] [address] Physician Drink Waiter Family Medicine 06/24/24 Underground Drill Operator Relationship Specialty Start Date End Date Mounika Brooke MD [address] [place] [address] PCP - General Family Medicine 07/27/23 Mounika Brooke MD [address] [place] [address] PCP - [facility] 11/19/24 Jennifer Short PA [address] [place] [address] Physician Drink Waiter Family Medicine 06/24/24 Underground Drill Operator Relationship Specialty Start Date End Date Mounika Brooke MD [address] [place] [address] PCP - General Family Medicine 07/27/23 Mounika Brooke MD [address] [place] [address] PCP - [facility] 11/19/24 Jennifer Short PA [address] [place] [address] Physician Drink Waiter Family Medicine 06/24/24 Underground Drill Operator Relationship Specialty Start Date End Date Mounika Brooke MD [address] [place] [address] PCP - General Family Medicine 07/27/23 Mounika Brooke MD [address] [place] [address] PCP - [facility] 11/19/24 Jennifer Short PA [address] [place] [address] Physician Drink Waiter Family Medicine 06/24/24 Underground Drill Operator Relationship Specialty Start Date End Date Mounika Brooke MD [address] [place] [address] PCP - General Family Medicine 07/27/23 Mounika Brooke MD [address] [place] [address] PCP - [facility] 11/19/24 Jennifer Short PA [address] [place] [address] Physician Drink Waiter Family Medicine 06/24/24 Underground Drill Operator Relationship Specialty Start Date End Date Mounika Brooke MD [address] [place] [address] PCP - General Family Medicine 07/27/23 Mounika Brooke MD [address] [place] [address] PCP - [facility] 11/19/24 Jennifer Short PA [address] [place] [address] Physician Drink Waiter Family Medicine 06/24/24 Underground Drill Operator Relationship Specialty Start Date End Date Mounika Brooke MD [address] [place] [address] PCP - General Family Medicine 07/27/23 Mounika Brooke MD [address] [place] [address] PCP - [facility] 11/19/24 Jennifer Short PA [address] [place] [address] Physician Drink Waiter Family Medicine 06/24/24 Underground Drill Operator Relationship Specialty Start Date End Date Mounika Brooke MD [address] [place] [address] PCP - General Family Medicine 07/27/23 Mounika Brooke MD [address] [place] [address] PCP - [facility] 11/19/24 Jennifer Short PA [address] [place] [address] Physician Drink Waiter Family Medicine 06/24/24 Underground Drill Operator Relationship Specialty Start Date End Date Mounika Brooke MD [address] [place] [address] PCP - General Family Medicine 07/27/23 Mounika Brooke MD [address] [place] [address] PCP - [facility] 11/19/24 Jennifer Short PA [address] [place] [address] Physician Drink Waiter Family Medicine 06/24/24 Underground Drill Operator Relationship Specialty Start Date End Date Mounika Brooke MD [address] [place] [address] PCP - General Family Medicine 07/27/23 Mounika Brooke MD [address] [place] [address] PCP - [facility] 11/19/24 Jennifer Short PA [address] [place] [address] Physician Drink Waiter Family Medicine 06/24/24 Goals (unrecognized section and [...] section and content) DATE CREATED AUTHOR 10/29/2023 [facility] DATE CREATED AUTHOR AUTHOR'S ORGANIZ ATION 11/30/2023 [facility] DATE CREATED AUTHOR AUTHOR'S ORGANIZ ATION 03/14/2024 [facility] DATE CREATED AUTHOR AUTHOR'S ORGANIZ ATION 06/24/2024 [facility] DATE CREATED AUTHOR AUTHOR'S ORGANIZ ATION 09/05/2024 [facility] DATE CREATED AUTHOR AUTHOR'S ORGANIZ ATION 12/03/2024 [facility] DATE CREATED AUTHOR AUTHOR'S ORGANIZ ATION 12/24/2024 [facility] DATE CREATED AUTHOR AUTHOR'S ORGANIZ ATION 12/25/2024 [facility] DATE CREATED AUTHOR AUTHOR'S ORGANIZ ATION 12/26/2024 [facility] DATE CREATED AUTHOR AUTHOR'S ORGANIZ ATION 01/01/2025 [facility] DATE CREATED AUTHOR AUTHOR'S ORGANIZ ATION 01/17/2025 [facility] DATE CREATED AUTHOR AUTHOR'S ORGANIZ ATION 03/09/2025 [facility] DATE CREATED AUTHOR AUTHOR'S ORGANIZ ATION 03/10/2025 [facility] DATE CREATED AUTHOR AUTHOR'S ORGANIZ ATION 03/14/2025 [facility] EPIC Source Comments (unrecognize d section and content) In the event this informatio n is protected by the Federal Confidentiality of Alcohol and Drug Abuse Patient Records regulations: The Federal rules restrict any use of the information to criminally investigate or prosecute any alcohol or drug abuse patient.[facility] Health[facility] the event this information is protected by the Federal Confidentiality of Alcohol and Drug Abuse Patient Records regulations: The Federal rules restrict any use of the information to criminally investigate or prosecute any alcohol or drug abuse patient.[facility] Health[facility] the event this information is protected by the Federal Confidentiality of Alcohol and Drug Abuse Patient Records regulations: The Federal rules restrict any use of the information to criminally investigate or prosecute any alcohol or drug abuse patient.[facility] Reason for Visit (unrecogniz ed section and [...] BE BASED ON THE PRIMARY CLINICAL RECORDS. [facility]. provides no warranty or guarantee of the accuracy or completeness of information in this document.
== END 2025-04-23 09:42 | disposition home or self-care (01) ==
LOC: WC 09:41
PROVIDERS: Visit Provider Physician Assistant
DX: E11.621 Type 2 diabetes mellitus with foot ulcer (principal); L97.422 Non-pressure chronic ulcer of left heel and midfoot with fat layer exposed
CPT/HCPCS: 29445; A6213

== ENCOUNTER 2025-04-30 12:57 | Outpatient (OUT) | payer MEDICARE, SELFPAY ==
--- OUTSIDE RECORDS SUMMARY | 2025-04-30 13:25 | XMS_ITS | CCD ---
Author Organization [facility] Inform ion Partnership [facility] Care Team Providers Care Sports Specialist Name Role Phone Migue STROUD Primary Care Physician Mounika Brooke Primary Care Physician Bowen Fan Unavailable Unavailable DO Reid Brooke. Primary Care Provider DO Art Kirby Emergency Provider DO Alban Chavez Admit Provider [phone] DO Alban Arrington Attending Provider MD Amrik De Guzman Other Provider MD Migue Stroud Primary Care Provider REID BROOKE Primary Care Physician [phone] Mounika Brooke MD Primary Care Provider MD Mounika Willoughby Primary Care Provider DO Jason Mercado Emergency Provider DO Tera Nevarez Admit Provider [phone] DO Tera Nevarez Attending Provider MD Hood Zacarias Other Provider MD Yesi Murphy Attending Provider PIPPA DONAHUE Consulting Unavailable BSTAY WELLER Admitting Unavailable TAY STEWART Attending Unavailable MOUNIKA BROOKE Primary Care Unavailable Mouniak Brooke MD Primary Care Provider [phone] Gurmeet LYMAN, Naun Unavailable MD Mounika Brooke Primary Care Provider DO Jason Mercado M Emergency Provider DO Tera Nevarez Admit Provider MD Hood Zacarias Other Provider MD Yesi Murphy Attending Provider SOFIE Alexander Other Provider Unavailable MD Bladimir Story Other Provider MD Immanuel Pozo Other Provider [phone] MD Satnam Guevara Other Provider MD Gigi Cooper Other Provider MD Manish Fu Attending Provider [phone] Mounika Brooke MD Primary Care Provider Mendy LYMAN, Mounika Lugo Unavailable Marivel ROWAN, Jennifer Nunez Unavailable [phone] Smooth Harrington Attending Unavailable Dolce, Smooth Elizondo Attending Unavailable Hajdari, Astrit H Attending Unavailable COOK, Taz P Referring Unavailable COOK, Taz P Admitting Unavailable COOK, Taz P Attending Unavailable COOK, Taz P Attending Unavailable COOK, Taz P Referring Unavailable COOK, Taz P Admitting Unavailable COOK, Taz P Admitting Unavailable COOK, Taz P Attending Unavailable [facility] Cardio, XXXX Consulting Unavailable Moussawi, Ahmad Admitting Unavailable Moussawi, Ahkamilad Attending Unavailable COOK, Taz P Attending Unavailable Jonathon, John Attending Unavailable OrzeGisselle farooq Attending Unavailable COOK, Taz P Attending Unavailable COOK, Taz P Attending Unavailable COOK, Taz P Attending Unavailable LIBERTY PATRICK Attending Unavailable Shannon Lowery Attending Unavailable Nicole Thompson. Attending Unavailable Dolce, Smooth Elizondo Attending Unavailable Dolce, Smooth Elizondo Attending Unavailable Dolce, Smooth Elizondo Attending Unavailable Dolce, Sukh Srinivasan Attending Unavailable Jose Miguel Phan SSue Attending Unavailable Mone Martinez Attending Unavailable DO Staci Beck Attending Unavailable Hajdari, Astrit H Attending Unavailable Dolce, Sukh R Attending Unavailable COOK, Taz P Attending Unavailable Gisselle Bahena Attending Unavailable Taz THOMAS Attending Unavailable OrGisselle vasquez X Attending Unavailable OrGisselle vasquez X Attending Unavailable Smooth Harrington Attending Unavailable Sukh Harrington Attending Unavailable Sukh Harrington Attending Unavailable Nicole Myers Attending Unavailable Alejandro Silva Attending Unavailable Nicole Myers Attending Unavailable Jennifer SHORT Admitting Unavailable Jennifer SHORT Attending Unavailable Taz THOMAS Admitting Unavailable Taz THOMAS Attending Unavailable Mounika Brooke MD Primary Care Provider Mounika Brooke MD Unavailable Dorita SANTIAGO, Janice Unavailable Dorita SANTIAGO, Janice Unavailable Nicole Myers Attending Unavailable Corky Luo Attending Unavailable Toni Gutierrez. Attending Unavailable Toni Gutierrez Admitting Unavailable Nicole Myers Attending Unavailable Corky Lou Attending Unavailable Dwight Shaffer Attending Unavailable Dwight Shaffer Admitting Unavailable Mendy, Mounika Primary Care Unavailable Maria Luisa Steiner. Attending Unavailable Mendy, Mounika M Referring Unavailable Toni Gutierrez Attending Unavailable Toni Gutierrez Admitting Unavailable Gennari, Jigna Attending Unavailable Gennari, Jigna Admitting Unavailable Jordan MACARIO Attending Unavailable Gennari, Jigna Admitting Unavailable MENDY, MOUNIKA M Attending Unavailable MENDY, MOUNIKA M Referring Unavailable MONE MCGUIRE Attending Unavailable MENDY, MOUNIKA M Attending Unavailable MENDY, MOUNIKA M Attending Unavailable MENDY, MOUNIKA M Attending Unavailable PERLITA MEEKS Attending Unavailable PERLITA MEEKS Attending Unavailable MENDY, MOUNIKA Lugo Attending Unavailable PERLITA MEEKS Attending Unavailable JENNIFER SHORT Attending Unavailable JENNIFER SHORT Referring Unavailable MENDY, MOUNIKA M Attending Unavailable MENDY, MOUNIKA M Attending Unavailable KAYLA SWEENEY F Referring Unavailable GERALDINE AHMAD F Attending Unavailable PERLITA MEEKS Attending Unavailable KAYLA SWEENEY F Attending Unavailable Jacqueline Vega RN Unavailable Dorita Janice SANTIAGO Unavailable Allergies Allergy Classification Reported Allergen(s) Allergy Type Date of Onset Reaction(s) Facility Penicillins (antibiotic) (4 sources) Penicillins; Translations: [penicillins] Drug Allergy Cutaneous eruption (morphologic abnormality) [facility] (20 sources) Penicillins; Translations: [penicillins] Drug allergy 5 Cutaneous eruption (morphologic abnormality), Rash [facility] (20 sources) penicillAMINE Drug Allergy 3 Unknown [facility] Medications Current Medications Medication Drug Class(es) Dates Sig (Normalized) Sig (Original) ##### (1 source) Start: 12-28-2021 ##### 100 EA, USE TO TEST THREE TIMES DAILY Start Date: 12/28/21 Status: Ordered acetaminophen 325 mg / HYDROcodone bitartrate 5 mg oral tablet (16 sources) Opioid Agonist Start: 11-20-2023 take 1 tablet by mouth every hour [place] 325 mg-5 mg oral tablet See Instructions, 1 tab(s), Refill(s) 0, Take 1 hour prior to your procedure, [facility] #[id number], 183, cm, 11/20/23 12:53:00 EDT, Height/Length Dosing, [...] for pain - following procedure, [facility] #[id number], 183, cm, 11/20/23 12:53:00 EDT, Height/Length Dosing, 143.5, kg, 11/11/23 9:09:00 EDT, Weight Dosing Start Date: 11/20/23 Status: Ordered acetaZOLAMIDE 250 mg oral tablet (1 source) Carbonic Anhydrase Inhibitor Start: 11-17-2023 take 250 mg by mouth twice daily Acetazolamide Active 250 MG PO Twice daily November 17, 2023 12:00am [id number] 200 actuat albuterol 0.09 mg/actuat metered dose [...] wheezing, 30 EA, Refill(s) 5, [facility] #[id number], 182.9, cm, 03/29/22 13:07:00 EDT, Height/Length Dosing, 126.7, kg, 03/29/22 13:07:00 EDT, Weight Dosing Start Date: 04/04/22 Status: Ordered Quantity: 30.0 Unit: EA Repeat number: 6 Start: 03-08-2021 take 2.5 mg by inhal ation every four hours albuterol 0.083% Inh Harriet 3 mL 2.5 mg, 3 mL, Inhalation, q4hr Shortness of breath or wheezing, 30 EA, Refill(s) 2, [facility], 183, cm, 01/11/21 11:12:00 EDT, Height/Length [...] Wheezing, 18 gm, Refill(s) 11, [facility] #[id number], 182, cm, 05/08/23 10:15:00 EDT, Height/Length Dosing, 137, kg, 05/08/23 10:15:00 EDT, Weight Dosing Start Date: 05/08/23 Status: Ordered Quantity: 18.0 Unit: g Repeat number: 12 Start: 05-08-2023 take 2 puff(s) by in halation every six hours Albuterol (Eqv-ProAir HFA) 90 mcg/inh inhalation aerosol 2 puff(s), Inhalation, q6hr Wheezing, 18 gm, Refill(s) 11, [facility] #[id number], 182, cm, 05/08/23 10:15:00 EDT, Height/Length Dosing, 137, kg, 05/08/23 10:15:00 EDT, Weight Dosing Start Date: 05/08/23 Status: Ordered Start: 05-08-2023 End: 05-02-2024 take 2 puff(s) by inhalation every six hours Albuterol (Eqv-ProAir HFA) 90 mcg/inh inhalation aerosol 2 puff(s), Inhalation, q6hr Wheezing for 30 day(s), 18 gm, Refill(s) 11, [facility] #[id number], 182, cm, 05/08/23 10:15:00 EDT, Height/Length Dosing, [...] qAM, # 30 tab(s), Refills(s) 0, Pharmacy: [facility] #[id number], 180, cm, 09/12/23 13:35:00 EST, Height/Length Dosing, 149.8, kg, 09/12/23 13:35:00 EST, Weight Dosing Start Date: 09/16/23 Status: Ordered Quantity: 30.0 Unit: tab(s) Repeat number: 1 Beet Root (20 sources) Start: 09-19-2022 Beet Root Beet Root, See Instructions, Take 1000mg daily Start Date: 09/19/22 Status: Ordered Blood Glucose Monitoring Suppl (SquareOneuch Verio Flex System) w/Device kit (2 sources) Start: 12-24-2024 Blood Glucose Monitoring Suppl (OneTouch Verio Flex System) w/Device kit USE DIRECTED [...] day(s), # 20 cap(s), Refills(s) 0, Pharmacy: [facility] #[id number], 183, cm, 12/02/24 12:47:00 EDT, Height/Length Dosing, [...] Date: 09/19/22 Status: Ordered Continuous Blood Gluc Shoemaker Apprentice (FreeStyle Sage 3 Freeland) device (20 sources) Start: 09-25-19 Continuous Blood Gluc Shoemaker Apprentice (FreeStyle Sage 3 Freeland) device Indications: Type 2 diabetes mellitus with hyperglycemia, with long-term current use of insulin (HCC) , Long-term insulin use (HCC) 1 each continuously 1 each 09/25/2023 Active Start: 09-25-2023 Continuous Blo od Gluc Shoemaker Apprentice (FreeStyle Sage 3 Freeland) device Indications: Type 2 diabetes mellitus with hyperglycemia, with long-term current use of insulin (CMS/HCC) , Long-term insulin use (CMS/HCC) 1 each continuously 1 each 09/25/2023 Active Continuous Blood Gluc Sensor (FreeStyle Sage 3 Sensor) misc (20 sources) Start: 09-25-2023 Continuous Blo od Gluc Sensor (FreeStyle Sage 3 Sensor) mis Indications: Type 2 diabetes mellitus with hyperglycemia, with long-term current use of insulin (HCC) , Long-term insulin use (HCC) 1 each every 14 (fourteen) days 6 each 3 09/25/2023 Active Start: 09-25-2023 Continuous Blo od Gluc Sensor (FreeStyle Sage 3 Sensor) [facility] [place]ications: Type 2 diabetes mellitus with hyperglycemia, with long-term current use of insulin (CMS/HCC) , Long-term insulin use (CMS/HCC) 1 each every 14 (fourteen) days 6 each 3 09/25/2023 Active diazePAM 10 mg oral tablet (16 sources) Benzodiazepine Start: 11-20-2023 Valium 10 mg Tab See Instructions, Take 1 hr prior to procedure, # 1 tab(s), Refills(s) 0, Pharmacy: [facility] #[id number], 183, cm, 11/20/23 12:53:00 EDT, Height/Length Dosing, [...] days, # 14 tab(s), Refills(s) 0, Pharmacy: [facility] #[id number], 183, cm, 11/20/23 12:53:00 EDT, Height/Length Dosing, [...] Daily, # 30 cap(s), Refills(s) 11, [facility], 182, cm, 01/11/22 13:57:00 EDT, Height/Length Dosing, 130, kg, 01/11/22 13:57:00 EDT, Weight Dosing Start Date: 01/11/22 Status: Ordered Start: 12-03-2019 take 1 capsule by [facility] once daily DULoxetine 60 mg Cap-EC 60 mg = 1 cap(s), Oral, Daily, # 30 cap(s), Refills(s) 11, [facility]acy: [facility], 183, cm, 11/14/19 12:11:00 EDT, Height/Length [...] on above: Take 1 tablet by ricco once daily. Flax Seed Oil (20 sources) Start: 09-19-2022 Flax Seed Oil See Instructions, Refill(s) 0, Take 1000mg daily Start Date: 09/19/22 Status: Ordered fluconazole 200 mg oral tablet (1 source) Azole Antifungal Start: 11-17-2023 take 200 mg by mouth once daily Fluconazole Active 200 MG PO Daily 05 30November 17, 2023 12:00am Freestyle Sage 2 Freeland (20 sources) Start: 09-16-2023 Freestyle Sage 2 Freeland Freestyle Sage 2 Freeland, See Instructions, 1 EA, 0, Use daily with sensor, [facility] #[id number], Supply, 180, cm, 09/12/23 13:35:00 EST, Height/Length Dosing, 149.8, kg, 09/12/23 13:35:00 EST, Weight Dosing Start Date: 09/16/23 Status: Ordered Quantity: 1.0 Unit: EA Repeat number: 1 Start: 09-16-2023 Freestyle Libr e 2 Freeland Freestyle Sage 2 Freeland, See Instructions, 1 EA, 0, Use daily with sensor, [facility] #[id number], Supply, 180, cm, 09/12/23 13:35:00 EST, Height/Length Dosing, 149.8, kg, 09/12/23 13:35:00 EST, Weight Dosing Start Date: 09/16/23 Status: Ordered Start: 05-22-2023 Freestyle Libr e 2 Freeland Freestyle Sage 2 Freeland, See Instructions, 1 EA, 0, Use daily with sensor, [facility] #[id number], Supply, 182, cm, 05/22/23 13:30:00 EDT, Height/Length Dosing, 139.6, kg, 05/22/23 13:30:00 EDT, Weight Dosing Start Date: 05/22/23 Status: Ordered Freestyle Sage 2 Sensors (20 sources) Start: 09-16-2023 Freestyle Libr e 2 Sensors Freestyle Sage 2 Sensors, See Instructions, 2 EA, 3, Apply one q 14 days, [facility] #[id number], Supply, 180, cm, 09/12/23 13:35:00 EST, Height/Length Dosing, 149.8, kg, 09/12/23 13:35:00 EST, Weight Dosing Start Date: 09/16/23 Status: Ordered Quantity: 2.0 Unit: EA Repeat number: 4 Start: 09-16-2023 Freestyle Libr e 2 Sensors Freestyle Sage 2 Sensors, See Instructions, 2 EA, 3, Apply one q 14 days, [facility] #[id number], Supply, 180, cm, 09/12/23 13:35:00 EST, Height/Length Dosing, 149.8, kg, 09/12/23 13:35:00 EST, Weight Dosing Start Date: 09/16/23 Status: Ordered Start: 05-22-2023 Freestyle Libr e 2 Sensors Freestyle Sage 2 Sensors, See Instructions, 2 EA, 3, Apply one q 14 days, [facility] #[id number], Supply, 182, cm, 05/22/23 13:30:00 EDT, Height/Length Dosing, 139.6, kg, 05/22/23 13:30:00 EDT, Weight Dosing Start Date: 05/22/23 Status: Ordered furosemide 20 mg oral tablet (20 sources) Loop Diuretic Start: 09-16-2023 take 1 tablet by mouth once daily Lasix 40 mg Tab 40 mg = 1 tab(s), Oral, Daily, # 30 tab(s), Refills(s) 0, Pharmacy: [facility] #[id number], 180, cm, 09/12/23 13:35:00 EST, Height/Length Dosing, [...] qPM, # 30 tab(s), Refills(s) 0, [facility]: [facility] #[id number], 180, cm, 09/12/23 13:35:00 EST, Height/Length Dosing, [...] mg) before bedtime. 90 tablet 3 12/25/2024 Active Start: 10-01-2021 [facility] gab[facility] 600 mg Tab 600 mg = 1 tab(s), Oral, BID, 30 Day Supply, # 60 tab(s), Refills(s) 11, Pharmacy: [facility] #[id number], 182, cm, 10/01/21 10:14:00 EST, Height/Length Dosing, [...] 12hr Active 1200 MG PO Twice daily November 17, 2023 12:00am Start: 06-15-2023 take 2 tablets by [facility] daily guaiFENesin 600 mg ER Tab 1,200 mg = 2 tab(s), Oral, BID, # 14 tab(s), Refills(s) 0, Pharmacy: [facility] #[id number], 182, cm, 06/11/23 13:54:00 EDT, Height/Length Dosing, [...] on above: Take 1 tablet by ricco every 12 hours. hydroCHLOROthiazide 25 mg / [...] day, # 45 mL, Refills(s) 5, Pharmacy: [facility] #[id number], 182, cm, 09/13/22 13:17:00 EST, Height/Length Dosing, 140.8, kg, 09/13/22 13:17:00 EST, Weight Dosing Start Date: 09/13/22 Status: Ordered Quantity: 45.0 Unit: mL Repeat number: 6 Start: 03-29-2022 NovoLOG FlexPe n 100 units/mL injectable solution See Instructions, 250 tidac. Max 150 units a day, # 45 mL, Refills(s) 5, Pharmacy: [facility] #[id number], 182.9, cm, 03/29/22 13:07:00 EDT, Height/Length Dosing, 126.7, kg, 03/29/22 13:07:00 EDT... Start Date: 03/29/22 Status: Ordered Start: 10-01-2021 NovoLOG FlexPe n 100 units/mL injectable solution See Instructions, 250 tidac. Max 120 units a day, # 15 mL, Refills(s) 3, [facility], 182, cm, 10/01/21 10:14:00 EST, Height/Length Dosing, 131.2, kg, 10/01/21 10:... Start Date: 10/01/21 Status: Ordered NovoLOG FLEXPEN 100 UNIT/ML pen Inject 100 Units under the skin in the morning and 100 Units at noon and 100 Units in the evening. Inject with meals. 0 Active Comment on above: inject 20 PLUS ISS #2 (EXPECT DAILY DOSE OF [...] BID, # 12 mL, Refills(s) 5, Pharmacy: [facility] #[id number], 182, cm, 09/13/22 13:17:00 EST, Height/Length Dosing, 140.8, kg, 09/13/22 13:17:00 EST, Weight Dosing Start Date: 09/13/22 Status: Ordered Quantity: 12.0 Unit: mL Repeat number: 6 Start: 03-29-2022 Toujeo Max Harriet oStar 300 units/mL subcutaneous solution 40 unit(s), SubCutaneous, BID, # 12 mL, Refills(s) 5, Pharmacy: [facility] #[id number], 182.9, cm, 03/29/22 13:07:00 EDT, Height/Length Dosing, 126.7, kg, 03/29/22 13:07:00 EDT, Weight Dosing Start Date: 03/29/22 Status: Ordered Start: 01-11-2022 inject 40 [IU] by shah bcutaneous injection in the morning, then inject 30 [IU] by subcutaneous injection in the evening Lantus Solostar Pen 100 units/mL subcutaneous solution See Instructions, 40 units AM, 30 units PM, # 30 mL, Refills(s) 11, [facility], 182, cm, 01/11/22 13:57:00 EDT, Height/Length Dosing, 130, kg, 01/11/22 13:57:00 EDT, Weight Dosing Start Date: 01/11/22 Status: Ordered Start: 01-11-2022 inject 40 [IU] by shah bcutaneous injection in the morning, then inject 30 [IU] by subcutaneous injection in the evening Lantus Solostar Pen 100 units/mL subcutaneous solution See Instructions, 40 units AM, 30 units PM, # 30 mL, Refills(s) 11, [facility], 182, cm, 01/11/22 13:57:00 EDT, Height/Length [...] bedtime., # 6 mL, Refills(s) 1, Pharmacy: [facility] #[id number], 182, cm, 12/20/24 13:40:00 EDT, Height/Length Dosing, [...] meals. isopropyl alcohol 0.7 ml/ml medicated pad (2 sources) Start: 12-22-19 Alcohol Swabs (Alcohol Prep) 70 [...] BID, 180 tab(s), Refill(s) 4, [facility] #[id number], 182.9, cm, 12/02/22 10:56:00 EDT, Height/Length Dosing, 139.6, kg, 12/02/22 10:56:00 EDT, Weight Dosing Start Date: 04/14/23 Status: Ordered Quantity: 180.0 Unit: tab(s) Repeat number: 5 Start: 04-04-2022 Jentadueto 2.5 mg-1000 mg oral tablet 1 tab(s), Oral, BID, 180 tab(s), Refill(s) 4, [facility] #[id number], 182.9, cm, 03/29/22 13:07:00 EDT, Height/Length Dosing, [...] Daily, # 30 tab(s), Refills(s) 1, Pharmacy: [facility] #[id number], 182, cm, 12/20/24 13:40:00 EDT, Height/Length Dosing, [...] 90 tab(s), Refills(s) 3, [facility]: [facility] #[id number], 182.9, cm, 03/29/22 13:07:00 EDT, Height/Length Dosing, 126.7, kg, 03/29/22 13:07:00 EDT, Weight Dosing Start Date: 03/29/22 Status: Ordered Start: 04-20-2021 take 1 tablet by ricco th once daily losartan 100 mg Tab 100 mg = 1 tab(s), Oral, Daily, # 90 tab(s), Refills(s) 3, [facility]: [facility], 183, cm, 04/20/21 11:36:00 EDT, Height/Length Dosing, 136, kg, 04/20/21 11:41:00 EDT, Weight Dosing Start Date: 04/20/21 Status: Ordered methocarbamol 750 mg oral tablet (1 source) Muscle Relaxant Start: 12-19-2024 End: 12-22-2024 take 1 tablet by mouth three times daily Robaxin-750 oral tablet 750 mg = 1 tab(s), Oral, TID, X 3 day(s), # 9 tab(s), Refills(s) 0, Pharmacy: [facility] #[id number], 183, cm, 12/19/24 10:26:00 EDT, Height/Length Dosing, [...] day, # 15 mL, Refills(s) 3, [facility]: [facility], 182, cm, 10/01/21 10:14:00 EST, Height/Length Dosing, 131.2, kg, 10/01/21 10:... Start Date: 10/01/21 Status: Ordered oxybutynin chloride 5 mg oral tablet (16 sources) Cholinergic Muscarinic Antagonist Start: 02-07-2024 take 1 tablet by mouth twice daily oxybutynin 5 mg Tab See Instructions, 1 tab(s) Oral bid after procedure, # 20 tab(s), Refills(s) 0, Pharmacy: [facility] #[id number], 180, cm, 01/15/24 16:27:00 EDT, Height/Length Dosing, 140, kg, 01/15/24 16:27:00 EDT, Weight Dosing Start Date: 02/07/24 Status: Ordered Start: 11-20-2023 take 1 tablet by ricco th twice daily oxybutynin 5 mg Tab See Instructions, 1 tab(s) Oral bid after procedure, # 10 tab(s), Refills(s) 0, Pharmacy: [facility] #[id number], 183, cm, 11/20/23 12:53:00 EDT, Height/Length Dosing, 143.5, kg, 11/11/23 9:09:00 EDT, Weight Dosing Start Date: 11/20/23 Status: Ordered pantoprazole 40 mg delayed release oral tablet (20 sources) Proton Pump Inhibitor Start: 04-20-2021 End: 12-04-2023 take 1 tablet by mouth once daily Protonix 40 mg Tab-DR 40 mg = 1 tab(s), Oral, Daily, # 30 tab(s), Refills(s) 6, Pharmacy: [facility] #[id number], 182, cm, 05/08/23 10:15:00 EDT, Height/Length Dosing, 137, kg, 05/08/23 10:15:00 EDT, Weight Dosing Start Date: 05/08/23 Status: Ordered Quantity: 30.0 Unit: tab(s) Repeat number: 7 Indication: Gastro-esophageal reflux disease without esophagitis Start: 04-20-2021 take 1 tablet by ricco th once daily Pantoprazole [address] Tab 40 mg = 1 tab(s), Oral, Daily, # 90 tab(s), Refills(s) 3, [facility]: [facility], 183, cm, 04/20/21 11:36:00 EDT, [...] 90 tab(s), Refills(s) 4, [facility]: [facility] #[id number], 182, cm, 05/22/23 13:30:00 EDT, Height/Length Dosing, 139.6, kg, 05/22/23 13:30:00 EDT, Weight Dosing Start Date: 05/22/23 Status: Ordered Quantity: 90.0 Unit: tab(s) Repeat number: 5 Start: 03-29-2022 take 1 tablet by ricco once daily in the evening ropinirole 1 mg Tab 1 mg = 1 tab(s), Oral, qPM, # 90 tab(s), Refills(s) 4, [facility]acy: [facility] #[id number], 182.9, cm, 03/29/22 13:07:00 EDT, Height/Length Dosing, 126.7, kg, 03/29/22 13:07:00 EDT, Weight Dosing Start Date: 03/29/22 Status: Ordered Start: 04-20-2021 take 1 tablet by ricco once daily in the evening ropinirole 1 mg Tab 1 mg = 1 tab(s), Oral, qPM, # 90 tab(s), Refills(s) 3, [facility]: [facility], 183, cm, 04/20/21 11:36:00 EDT, [...] oral capsule (20 sources) alpha-Adrenergic Rashida Start: 4 End: 4 take 1 capsule by mouth once daily tamsulosin 0.4 mg Cap 0.4 mg = 1 cap(s), Oral, Daily, X 30 day(s), # 30 cap(s), Refills(s) 3, [facility]: [facility] #[id number], 181.8, cm, 09/26/23 9:01:00 EST, Height/Length Dosing, 136, kg, 09/26/23 9:01:00 EST, Weight Dosing Start Date: 10/02/23 Stop Date: 01/30/24 Status: Ordered Comment on above: Take 1 capsule by [facility] every afternoon. torsemide 20 mg oral tablet [...] on above: Take 3 tablets by [facility] two times a day. Toujeo SoloStar (20 [...] wheezing, 8.5 gm, Refill(s) 5, [facility] #[id number], 182.9, cm, 06/17/22 13:13:00 EDT, Height/Length Dosing, 131.5, kg, 06/17/22 13:13:00 EDT, Weight Dosing Start Date: 06/17/22 Status: Ordered Quantity: 8.5 Unit: g Repeat number: 6 Start: 06-17-2022 take 2 puff(s) by in halation every four hours Ventolin HFA 90 mcg/inh Aerosol 2 puff(s), Inhalation, q4hr Shortness of breath or wheezing, 8.5 gm, Refill(s) 5, [facility] #[id number], 182.9, cm, 06/17/22 13:13:00 EDT, Height/Length Dosing, [...] day(s), # 20 cap(s), Refills(s) 0, Pharmacy: [facility] #[id number], 180, cm, 09/24/23 20:13:00 EST, Height/Length Dosing, 141.4, kg, 09/24/23 20:13:00 EST, Weight Dosing Start Date: 09/24/23 Stop Date: 09/29/23 Status: Ordered Glucometer (20 sources) Start: 09-16-2023 Glucometer Glu cometer, See Instructions, 1 EA, 0, Dispense 1 Glucometer, [facility] #[id number], Supply, 180, cm, 09/12/23 13:35:00 EST, Height/Length Dosing, 149.8, kg, 09/12/23 13:35:00 EST, Weight Dosing Start Date: 09/16/23 Status: Ordered Quantity: 1.0 Unit: EA Repeat number: 1 Indication: Type 2 diabetes mellitus with diabetic neuropathy, unspecified Start: 09-16-2023 Glucometer Glu cometer, See Instructions, 1 EA, 0, Dispense 1 Glucometer, [facility] #[id number], Supply, 180, cm, 09/12/23 13:35:00 EST, Height/Length Dosing, 149.8, kg, 09/12/23 13:35:00 EST, Weight Dosing Start Date: 09/16/23 Status: Ordered Start: 11-03-2022 Glucometer Glu cometer, See Instructions, 1 EA, 0, Dispense 1 Glucometer, [facility] #[id number], Supply, 182, cm, 09/13/22 13:17:00 EST, Height/Length Dosing, 140.8, kg, 09/13/22 13:17:00 EST, Weight Dosing Start Date: 11/03/22 Status: Ordered Start: 10-28-2021 Glucometer Glu cometer, See Instructions, 1 EA, 0, Dispense 1 Glucometer, [facility] #[id number], Supply, 182, cm, 10/01/21 10:14:00 EST, Height/Length Dosing, 131.2, kg, 10/01/21 10:14:00 EST, Weight Dosing Start Date: 10/28/21 Status: Ordered Glucose (1 source) Start: 12-21-2024 Glucose Kit Gl ucose Kit, See Instructions, 1 EA, 0, Glucose meter. Include autolet, matching test strips, lancets, & alcohol wipes, #100 or as allowed by insurance; DX: E11.9, [facility] #[id number], Supply, 182, cm, 12/20/24 13:40:00 EDT, Height/Length [...] Insulin Analog Sta rt: 3 End : 3 Insulin Lispro Sliding Scale 0-10 Unit(s), Injection-Insulin, [...] End: 05-22-2024 0.3 mg, Intravitreal, Once P food service order clerk, Starting on Mon05/22/24 at 1442, For 1 dose Start: 04-23-2024 End: 04-23-2024 0.3 mg, Intravitreal, Once P food service order clerk, Starting on Mon04/23/24 at 1106, For 1 dose Symbicort 160/4.5 inhalation aerosol with adapter (20 sources) Start: 05-08-2023 take 1 dose by inhalation twice daily Symbicort 160/4.5 inhalation aerosol with adapter 2 puff(s), Inhalation, BID, 1 EA, Refill(s) 6, [facility] #[id number], 182, cm, 05/08/23 10:15:00 EDT, Height/Length Dosing, 137, kg, 05/08/23 10:15:00 EDT, Weight Dosing Start Date: 05/08/23 Status: Ordered Quantity: 1.0 Unit: EA Repeat number: 7 Indication: Unspecified asthma, uncomplicated Start: 05-08-2023 take 1 dose by inhal ation twice daily Symbicort 160/4.5 inhalation aerosol with adapter 2 puff(s), Inhalation, BID, 1 EA, Refill(s) 6, [facility], 182, cm, 05/08/23 10:15:00 EDT, Height/Length Dosing, 137, kg, 05/08/23 10:15:00 EDT, Weight Dosing Start Date: 05/08/23 Status: Ordered Start: 05-08-2023 End: 12-04-2023 take 1 dose by inhalation twice daily Symbicort 160/4.5 inhalation aerosol with adapter 2 puff(s), Inhalation, BID for 30 day(s), 1 EA, Refill(s) 6, [facility] #[id number], 182, cm, 05/08/23 10:15:00 EDT, Height/Length Dosing, [...] Start: 09-12-2023 take 1 capsule by [facility] every eight hours as needed for pain Zanaflex 2 mg oral capsule 2 mg = 1 cap(s), Oral, q8hr, PRN Muscle pain, # 180 cap(s), Refills(s) 0 Start Date: 09/12/23 Status: Ordered Quantity: 180.0 Unit: cap(s) Repeat number: 1 Start: 07-27-2023 take 1 tablet by ricco every eight hours for muscle spasms tiZANidine [...] outpatient CDI policy. 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] Onset: 05-22-2023 [...] 06-13-2023 06-17-2022 Episodic Other connective tissue disease (2 sources) Muscle weakness; Translations: [Muscle weakness (generalized)] Onset: 11-17-2023 03-17-2025 Episodic Other lower respiratory disease (20 sources) Chronic cough; Translations: [Chronic cough] Onset: 06-13-2023 03-25-2019 Episodic Other nervous system disorders (20 sources) Impairment of balance; Translations: [Other abnormalities of gait and mobility] Onset: 06-13-2023 06-13-2023 Episodic Other nervous system disorders (2 sources) Coordination problem; Translations: [Unspecified lack of coordination] [...] Results Test Name Value Interpretation Reference Range Facil ity Capillary Glucose POCon 02-18 Glucose [Mass/Vol] 228 mg/dL High 55-99 [facility] Comment on above: Result Comment: Thelma maxwell RN/ Performed By: #### 2 [id number] #### [facility] [address] [place] [address] Discharge Note-Nursingon Discharge Note-Nursing Discharge Note-Nursing NICOLE [...] Keep scheduled appointment Where: [address] [place] [address]- Business (1) Medications What How Much When Why Instructions Next Dose New insulin glargine (Insulin Glargine Prefilled Pen 100 units/ mL subcutaneous solution) 30 Units Subcutaneous 2 times a day Type 2 diabetes mellitus with hyperosmolar nonketotic hyperglycemia Refills: 1 Pickup at [facility] #[id number] Tonight at 9:00 PM New insulin lispro (HumaLOG KwikPen 100 units/ mL injectable solution) See instructions Type 2 diabetes mellitus with hyperosmolar nonketotic hyperglycemia TID PRN AC MEALS 150- 200 2 units, 200-250 4 u, 251-300 6 u, 301-350 8 u, 351-400 10 u, > 401 call your PCP Pickup at [facility] #[id number] Today at lunch Changed insulin regular (HumuLIN [...] Pen Needle 31G x 6mm Pharmacy Information [facility] #[id number]: [address] [place] [id number] [phone] Test Results CBC BMP WBC: 6.9 E9/L [...] mmol/L (02/18 (more content not included)... Normal [facility] Inpatient Clinical Summaryon 03-07-2025 Inpatient Clinical Summary Inpatient Clinical Summary [address] [address] Clinical Summary Person Information: Name: NICOLE LORA Age: 65 Years : 1960 Sex: Male PCP: Mounika Brooke MD Marital Status: Phone: [phone] Race: White Ethnicity: Non- or Language: Somali Visit Id: Visit Reason: Hyperglycemia; Medical problem - minor; Leg pain-swelling; LEG PAIN Speciality: Acuity: Enc Type: Inpatient Med Service: Medical Arrival: 03/05/2025 19:53:39 Discharge: Dispo Type: Admit to ICCU Address: [address] [id number] Provider Notes: Diagnosis: 1:Leg muscle spasm; 4:CKD [...] Tablets By Mouth every day. Refills: 1. [facility] Prescription (Glucose Kit) Glucose meter. Include autolet, matching test strips, lancets, & alcohol wipes, #100 or as allowed by insurance; DX: E11.9. Refills: 0. Misc Prescription (Pen Needle 31G x 6mm) Pen Needle 31G x 6mm. Refills: 1. Care Team Members: Attending Physician: Jigna Suarez MD Consulting Physician: Referring Physician: Follow up: With: Address: When: Mounika [address] [place] [address] Business () Within 3 to 5 days Comments: Call for followup appointment Patient Education Information: Hyperglycemic Hyperosmolar State Normal [facility] Inpatient Patient Summaryon 03-07-2025 Inpatient Patient Summary Inpatient Patient Summary [address] [address] Patient Discharge Instructions PERSON INFORMATION [...] None Follow up: With: Address: When: [address] [address] [place] [address] [place] (7) Within 3 to 5 days Comments: Call [...] OCCURRED DURING YOUR HOSPITAL STAY New Medications [id number], [address] [place], [place] [id number], [phone] insulin glargine (Insulin Glargine Prefilled Pen 100 [...] Hyperosmolar State (more content not included)... Normal [facility] Interdisciplinary Note - Yimi e Manageron 03-07-2025 Interdisciplinary Note - Neighborhood Service Center Director Interdisciplinary Note - Neighborhood Service Center Director Patient is awake and alert in bed, previously rounded with Dr. Macario. Patient is from home independently, states with daughter 4 days per week who is disabled and has cancer. States trying to get motorized scooter approved by insurance and CRM contacted PCP office yesterday regarding this. Declines any HH or PM or further needs. Family will transport at [place]. Medicare rights reviewed and second copy provided. . PCP verified and insurance information reviewed and DME discussed. Contact information provided and white board updated. Normal [facility] Comment on above: Result Comment: Elec tronically Signed By: Darlyn HALL, Lolis\.samir\Date and Time Signed: 03/07/25 09:09 EDT Patient Education - Texton 0 03-07-2025 Patient Education - Text Patient Education - Text [facility] BMPon 03-06-2025 Anion gap [Moles/Vol] 12 mmol/L Normal 6-16 [facility] Comment on above: Performed By: #### 2 [id number] #### [facility] [address] [place] [address] BUN/Creat Ratio 22 No Units High 10-20 [facility] Comment on above: Performed By: #### 2 [id number] #### [facility] [address] [place] [address] Calcium [Mass/Vol] 8.4 mg/dL Low 8.9-11.1 [facility] Comment on above: Performed By: #### 2 [id number] #### [facility] [address] [place] [address] Chloride [Moles/Vol] 100 mmol/L Low 101-111 [facility] Comment on above: Result Comment: Delt a check verified Performed By: #### 2 [id number] #### [facility] [address] [place] [address] CO2 [Moles/Vol] 26 mmol/L Normal 21-31 [facility] Comment on above: Performed By: #### 2 [id number] #### [facility] [address] [place] [address] Creatinine [Mass/Vol] 1.6 mg/dL High 0.5-1.3 [facility] Comment on above: Result Comment: Delt a check verified Performed By: #### 2 [id number] #### [facility] [address] [place] [address] Glucose [Mass/Vol] 224 mg/dL High 55-199 [facility] Comment on above: Performed By: #### 2 [id number] #### [facility] [address] [place] [address] Potassium [Moles/Vol] 3.8 mmol/L Normal 3.5-5.3 [facility] Comment on above: Result Comment: Delt a check verified Performed By: #### 2 [id number] #### [facility] [address] [place] [address] Sodium [Moles/Vol] 134 mmol/L Low 135-145 [facility] Comment on above: Performed By: #### 2 [id number] #### [facility] [address] [place] [address] Urea nitrogen [Mass/Vol] 35 mg/dL High 5-21 [facility] Comment on above: Performed By: #### 2 [id number] #### [facility] [address] [place] [address] Capillary Glucose POCon 02-18 Glucose [Mass/Vol] 172 mg/dL High 55-99 [facility] Comment on above: Result Comment: Thelma maxwell RN/ Performed By: #### 2 [id number] #### [facility] [address] [place] [address] Glucose [Mass/Vol] 121 mg/dL High 55-99 [facility] Comment on above: Result Comment: Thelma maxwell RN/ Performed By: #### 2 [id number] #### [facility] [address] [place] [address] Glucose [Mass/Vol] 186 mg/dL High 55-99 [facility] Comment on above: Performed By: #### 2 [id number] #### [facility] [address] [place] [address] Glucose [Mass/Vol] 225 mg/dL High 55-99 [facility] Comment on above: Performed By: #### 2 [id number] #### [facility] [address] [place] [address] Glucose [Mass/Vol] 128 mg/dL High 55-99 [facility] Comment on above: Performed By: #### 2 [id number] #### [facility] [address] [place] [address] Glucose [Mass/Vol] 168 mg/dL High 55-99 [facility] Comment on above: Result Comment: Pricila elbert Meter Performed By: #### 2 [id number] #### [facility] [address] [place] [address] Glucose [Mass/Vol] 163 mg/dL High 55-99 [facility] Comment on above: Result Comment: Pricila elbert Meter Performed By: #### 2 [id number] #### [facility] [address] [place] [address] Glucose [Mass/Vol] 229 mg/dL High 55-99 [facility] Comment on above: Result Comment: Pricila elbert Meter Performed By: #### 2 [id number] #### [facility] [address] [place] [address] Glucose [Mass/Vol] 214 mg/dL High 55-99 [facility] Comment on above: Result Comment: Pricila elbert Meter Performed By: #### 2 [id number] #### [facility] [address] [place] [address] Glucose [Mass/Vol] 241 mg/dL High 55-99 [facility] Comment on above: Result Comment: Pricila elbert Meter Performed By: #### 2 [id number] #### [facility] [address] [place] [address] Glucose [Mass/Vol] 322 mg/dL High 55-99 [facility] Comment on above: Result Comment: Pricila elbert Meter Performed By: #### 2 [id number] #### [facility] [address] [place] [address] Glucose [Mass/Vol] 384 mg/dL High 55-99 [facility] Comment on above: Result Comment: Pricila elbert Meter Performed By: #### 2 [id number] #### [facility] [address] [place] [address] Glucose [Mass/Vol] 440 mg/dL High 55-99 [facility] Comment on above: Result Comment: Pricila elbert Meter Performed By: #### 2 [id number] #### [facility] [address] [place] [address] ED Note-Physicianon 03-06-20 ED Note-Physician ED Note-Physician [...] and Complexity of Problems Differential Diagnosis: [] [facility] Data External documents reviewed: [] My [...] EDT, ST (more content not included)... Normal [facility] Comment on above: Result Comment: Elec tronically Signed By: Shira Snider, Alejandro Esteves\.samir\Date and Time Signed: 03/06/25 00:11 EDT Extra Bryan 03-06-2025 WB Tube Collected Yes Invalid Interpretation Code [facility] Comment on above: Performed By: #### 1 [id number] #### [facility] [address] [place] [address] Glucoseon 03-06-2025 Glucose [Mass/Vol] 551 mg/dL Abnormal 55-199 [facility] Comment on above: Result Comment: Crit ical Result Verified by Previous Result Critical Result [id number] Called to and read back by: DIGNA MARX at: 03/06/2025 00:04:06 by:[id number] Performed By: #### 2 [id number] #### [facility] [address] [place] [address] Inpatient Clinical Summaryon 03-06-2025 Inpatient Clinical Summary Inpatient Clinical Summary [address] [address] Clinical Summary Person Information: Name: NICOLE LORA Age: 65 Years : 1960 Sex: Male PCP: Mounika Brooke MD Marital Status: Phone: [phone] Race: White Ethnicity: Non- or Language: Somali Visit Id: Visit Reason: Hyperglycemia; Medical problem - minor; Leg pain-swelling; LEG PAIN Speciality: Acuity: Enc Type: Inpatient Med Service: Medical Arrival: 03/05/2025 19:53:39 Discharge: Dispo Type: Admit to ICCU Address: [address] [place] [id number] Provider Notes: Diagnosis: 1:Leg muscle spasm; 4:CKD [...] Physician: Follow up: Patient Education Information: Normal [facility] Inpatient Patient Summaryon 03-06-2025 Inpatient Patient Summary Inpatient Patient Summary [place] [id number] Patient Discharge Instructions PERSON INFORMATION Name: NICOLE [...] to serve you. Thank you for choosing [facility] Normal [facility] Interdisciplinary Note - Yimi e Manageron 03-06-2025 Interdisciplinary Note - Neighborhood Service Center Director Interdisciplinary Note - Neighborhood Service Center Director CRM to room ICU 7 Patient [...] Dr Macario patient may move to the [facility]. Patient was provided CRM contact, white [...] regard to his electric scooter order Normal [facility] Comment on above: Result Comment: Elec tronically Signed By: Jodee Giang\.br\Date and Time Signed: 03/06/25 16:16 EDT Interdisciplinary Note - Neighborhood Service Center Director Interdisciplinary Note - Neighborhood Service Center Director CRM to room ICU 7 Patient [...] Dr Macario patient may move to the [facility]. Patient was provided CRM contact, white board updated. CRM following DC date TBD, DC plan home, declined needs Normal [facility] Comment on above: Result Comment: Elec tronically Signed By: Jodee Giang\.br\Date and Time Signed: 03/06/25 10:21 EDT Patient Education - Texton 0 03-06-2025 Patient Education - Text Patient Education - Text Normal [facility] XR Chest Single Viewon 03-06 XR Chest [...] MD Transcribed by: KAT Technologist: CML Normal [facility] eGFRon 03-06-2025 eGFR 47 mL/min/1.73 m2 Low >=59 [facility] Comment on above: Performed By: #### 1 [id number] #### [facility] [address] [place] [address] BMPon 03-05-2025 Glucose [Mass/Vol] 1084 mg/dL Abnormal 55-199 [facility] Comment on above: Result Comment: Crit ical Result Verified by Repeat Analysis Critical Result [id number] Called to and read back by: KELY GE at: 03/05/2025 21:05:22 by:KELLEE Performed By: #### 2 [id number] #### [facility] [address] [place] [address] Sodium [Moles/Vol] 119 mmol/L Abnormal 135-145 [facility] Comment on above: Result Comment: Crit ical Result Verified by Repeat Analysis Critical Result S_NA of 119 Called to and read back by: KELY GE at: 03/05/2025 21:05:22 by:KELLEE Performed By: #### 2 [id number] #### [facility] [address] [place] [address] Anion gap [Moles/Vol] 13 mmol/L Normal 6-16 [facility] Comment on above: Performed By: #### 2 [id number] #### [facility] [address] [place] [address] BUN/Creat Ratio 21 No Units High 10-20 [facility] Comment on above: Performed By: #### 2 [id number] #### [facility] [address] [place] [address] Calcium [Mass/Vol] 8.4 mg/dL Low 8.9-11.1 [facility] Comment on above: Performed By: #### 2 [id number] #### [facility] [address] [place] [address] Chloride [Moles/Vol] 86 mmol/L Low 101-111 [facility] Comment on above: Performed By: #### 2 [id number] #### [facility] [address] [place] [address] CO2 [Moles/Vol] 25 mmol/L Normal 21-31 [facility] Comment on above: Performed By: #### 2 [id number] #### [facility] [address] [place] [address] Creatinine [Mass/Vol] 1.9 mg/dL High 0.5-1.3 [facility] Comment on above: Performed By: #### 2 480685 #### [facility] [address] [place] [address] Potassium [Moles/Vol] 4.6 mmol/L Normal 3.5-5.3 [facility] Comment on above: Performed By: #### 2 464019 #### [facility] [address] [place] [address] Urea nitrogen [Mass/Vol] 40 mg/dL High 5-21 [facility] Comment on above: Performed By: #### 2 [id number] #### [facility] [address] [place] [address] [facility] 03-05-2025 Beta HB Qnt 0.45 mmol/L High 0.02-0.27 [facility] Comment on above: Performed By: #### 2 [id number] #### [facility] [address] [place] [address] CBC w/ Auto Diffon 5 Basophil Absolute 0.1 E9/L Normal 0.0-0.2 [facility] Comment on above: Performed By: #### 2 [id number] #### [facility] [address] [place] [address] Basophils/100 WBC (Bld) 0.9 % Normal 0.0-2.0 [facility] Comment on above: Performed By: #### 2 [id number] #### [facility] [address] [place] [address] Eos Absolute 0.2 E9/L Normal 0.0-0.5 [facility] Comment on above: Performed By: #### 2 120534 #### [facility] [address] [place] [address] Eosinophils/100 WBC (Bld) 2.4 % Normal 0.0-8.0 [facility] Comment on above: Performed By: #### 2 [id number] #### [facility] [address] [place] [address] Erythrocyte distribution width (RBC) [Ratio] 12.9 % Normal 10.9-14.2 [facility] Comment on above: Performed By: #### 2 257137 #### [facility] [address] [place] [address] Hematocrit (Bld) [Volume fraction] 44.1 % Normal 37.7-49.0 [facility] Comment on above: Performed By: #### 2 735855 #### [facility] [address] [place] [address] Hemoglobin (Bld) [Mass/Vol] 14.7 g/dL Normal 13.5-17.5 [facility] Comment on above: Performed By: #### 2 695713 #### [facility] [address] [place] [address] Lymph Absolute 1.2 E9/L Normal 1.0-4.0 [facility] Comment on above: Performed By: #### 2 668420 #### [facility] [address] [place] [address] Lymphocytes/100 WBC (Bld) 17.9 % Normal 14.0-50.0 [facility] Comment on above: Performed By: #### 2 020262 #### [facility] [address] [place] [address] MCH (RBC) [Entitic mass] 31.2 pg Normal 27.0-34.0 [facility] Comment on above: Performed By: #### 2 [id number] #### [facility] [address] [place] [address] MCHC (RBC) [Mass/Vol] 33.2 g/dL Normal 31.4-36.0 [facility] Comment on above: Performed By: #### 2 [id number] #### [facility] [address] [place] [address] MCV (RBC) [Entitic vol] 93.8 fL Normal 80.0-100.0 [facility] Comment on above: Performed By: #### 2 288779 #### [facility] [address] [place] [address] Traill Absolute 0.4 E9/L Normal 0.2-1.0 [facility] Comment on above: Performed By: #### 2 666284 #### [facility] [address] [place] [address] Monocytes/100 WBC (Bld) 6.5 % Normal 4.0-14.0 [facility] Comment on above: Performed By: #### 2 160646 #### [facility] [address] [place] [address] Neutro Absolute 5.0 E9/L Normal 2.0-7.5 [facility] Comment on above: Performed By: #### 2 560322 #### [facility] [address] [place] [address] Neutro Auto 72.3 % Normal 36.0-75.0 [facility] Comment on above: Performed By: #### 2 555489 #### [facility] [address] [place] [address] Platelet 230.0 E9/L Normal 150.0-500.0 [facility] Comment on above: Performed By: #### 2 256296 #### [facility] [address] [place] [address] Platelet mean volume (Bld) [Entitic vol] 8.1 fL Normal 6.4-10.8 [facility] Comment on above: Performed By: #### 2 800358 #### [facility] [address] [place] [address] RBC 4.7 E12/L Normal 4.3-5.9 [facility] Comment on above: Performed By: #### 2 683019 #### [facility] [address] [place] [address] WBC 6.9 E9/L Normal 4.0-11.0 [facility] Comment on above: Performed By: #### 2 411153 #### [facility] [address] [place] [address] Capillary Glucose POCon 02-18 Glucose Cap >500 Abnormal [facility] Comment on above: Result Comment: Pricila elbert Meter Performed By: #### 2 [id number] #### [facility] [address] [place] [address] Glucose Cap >500 Abnormal [facility] Comment on above: Result Comment: Pricila elbert Meter Performed By: #### 2 [id number] #### [facility] [address] [place] [address] Glucose Cap >500 Abnormal [facility] Comment on above: Performed By: #### 2 [id number] #### [facility] [address] [place] [address] ED Clinical Summaryon 2024 ED Clinical Summary ED Clinical Summary [address] [address] ED Clinical Summary Person Information Name: NICOLE LORA [facility] Age: 65 Years : 1960 Sex: Male Language: Somali PCP: Mounika Brooke MD Marital Status: Phone: [phone] Visit Id: Visit Reason: Hyperglycemia; Medical problem - minor; Leg pain-swelling; LEG PAIN Speciality: Acuity: 2 Enc Type: Inpatient Med Service: Medical Arrival: 03/05/2025 19:53:39 Discharge: LOS: 000 02:16 Checkin: 03/05/2025 19:53:39 Checkout: 03/05/2025 22:09:09 Dispo Type: Admit to ICCU EVENTS: Event Name Event Status Request Date/Time [...] 03/05/2025 21:34:31 03/05/2025 21:34:31 03/05/2025 21:34:31 ADDRESS: [address] [place] [id number] PHYS DOC NOTES: MEDICAL INFORMATION: Prescriptions Given: Medications [...] EDUCATION INFORMATION: Instructions: Follow up: DIAGNOSIS: Normal [facility] ED Patient Education Noteon 03-05-2025 ED Patient Education Note ED Patient Education Note Normal [facility] ED Patient Summaryon 025 ED Patient Summary ED Patient Summary [address] [address] Patient Discharge Instructions Person Information Name: NICOLE LORA Age: 65 Years Arrival Date: 03/05/2025 19:53:39 Discharge Diagnosis: Primary Care Physician: Mounika Brooke MD Provider Information Primary Provider: Alejandro Silva M.D. Advanced Hard Tile Setter Apprentice:None The exam and treatment you received in the Emergency Department were for an urgent problem and are not intended as complete care. It is important that you follow up with a doctor, nurse practitioner, or physician???s public services assistant for ongoing care. If your symptoms [...] opioids can be used to help relieve nukqizih-zw-vvwrlu pain and are often prescribed following a [...] be struggling with addiction, tell your health long term acute care registered nurse and ask for guidance or call [facility]???S National Helpline at 7-243-575-HELP. v Source: [place] Department of Health and Human Services/Center for Disease Control & Prevention [facility] (more content not included)... Normal [facility] Extra Blueon 03-05-2025 Tube Collected Plasma Yes Invalid Interpretation Code [facility] Comment on above: Performed By: #### 1 [id number] #### [facility] [address] [place] [address] Glucoseon 03-05-2025 Glucose [Mass/Vol] 726 mg/dL Abnormal 55-199 [facility] Comment on above: Result Comment: Crit ical Result Verified by Repeat Analysis Critical Result S_[id number] Called to and read back by: BINA GONZALEZ at: 03/05/2025 23:09:06 by:[email or web address] Performed By: #### 2 [id number] #### [facility] [address] [place] [address] Hep Func Panelon 03-05-2025 Albumin [Mass/Vol] 3.3 g/dL Normal 3.3-5.0 [facility] Comment on above: Performed By: #### 2 [id number] #### [facility] [address] [place] [address] Albumin/Globulin [Mass ratio] 1.2 {ratio} Normal 1.1-2.2 [facility] Comment on above: Performed By: #### 2 [id number] #### [facility] [address] [place] [address] Alk Phos 160 Int._Unit/L High 21-98 [facility] Comment on above: Performed By: #### 2 [id number] #### [facility] [address] [place] [address] ALT 19 Int._Unit/L Normal 6-46 [facility] Comment on above: Performed By: #### 2 [id number] #### [facility] [address] [place] [address] AST 15 Int._Unit/L Normal 5-43 [facility] Comment on above: Performed By: #### 2 351284 #### [facility] [address] [place] [address] Bili Direct 0.1 mg/dL Normal 0.0-0.4 [facility] Comment on above: Performed By: #### 2 [id number] #### [facility] [address] [place] [address] Bili Indirect 0.6 mg/dL Normal 0.1-0.9 [facility] Comment on above: Performed By: #### 2 [id number] #### [facility] [address] [place] [address] Bili Total 0.7 mg/dL Normal 0.0-1.1 [facility] Comment on above: Performed By: #### 2 070267 #### [facility] [address] [place] [address] Globulin (S) [Mass/Vol] 2.8 g/dL Normal 1.4-4.0 [facility] Comment on above: Performed By: #### 2 [id number] #### [facility] [address] [place] [address] Protein [Mass/Vol] 6.1 g/dL Normal 6.0-7.8 [facility] Comment on above: Performed By: #### 2 [id number] #### [facility] [address] [place] [address] Magnesiumon 03-05-2025 Magnesium [Mass/Vol] 2.0 mg/dL Normal 1.3-2.4 [facility] Comment on above: Performed By: #### 2 839507 #### [facility] [address] [place] [address] Pre-Arrival Noteon Pre-Arrival Note Pre-Arrival Note Pre-Arrival Summary Name: , Current Date: 03/05/2025 19:54:07 EDT Gender: Male Date of : Age: 65 Pre-Arrival Type: EMS ETA: 03/05/2025 20:14:00 EDT Primary Care Physician: Presenting Problem: leg pain Pre-Arrival User: Liberty Cope RN Referring Source: Location: Completion Date/Time: 03/05/2025 19:44:00 [facility] Emergency Department Pre-Hospital Report Form Vital Signs: Pre-Hospital Report: Treatment in Route: Response to Treatment: Misc. Issues: Normal [facility] Troponinon 03-05-2025 Troponin HS 10.10 pg/mL Low 15.90-38.40 [facility] Comment on above: Result Comment: The 95% CI (Confidence Interval) PPV (Positive Predictive Value) for myocardial infarction in females is 38 pg/mL, in males 51 pg/mL. The results should be used in conjunction with clinical conditions of myocardial infarction. (Access High Sensitivity Troponin I Instructions For Use, Opal Shirlene, March 2018) Performed By: #### 2 [id number] #### [facility] [address] [place] [address] UA with Cult Rflxon 03-05-20 25 Color (U) Colorless Abnormal Yellow [facility] Comment on above: Result Comment: Micr oscopic readings are only performed on those samples that meet specific criteria set forth by [facility]. Performed By: #### 4 [id number] #### [facility] [address] [place] [address] Ketones Ql (U) Negative Normal Negative [facility] Comment on above: Performed By: #### 4 [id number] #### [facility] [address] [place] [address] UA Blood Negative Normal Negative [facility] Comment on above: Performed By: #### 4 [id number] #### [facility] [address] [place] [address] UA Clarity Clear Normal Clear [facility] Comment on above: Performed By: #### 4 [id number] #### [facility] [address] [place] [address] UA Glucose 4+ mg/dL Abnormal Negative [facility] Comment on above: Performed By: #### 4 [id number] #### [facility] [address] [place] [address] UA Leuk Est Negative Normal Negative [facility] Comment on above: Performed By: #### 4 [id number] #### [facility] [address] [place] [address] UA Mucous Negative Normal Negative [facility] Comment on above: Performed By: #### 4 [id number] #### [facility] [address] [place] [address] UA Nitrite Negative Normal Negative [facility] Comment on above: Performed By: #### 4 [id number] #### [facility] [address] [place] [address] UA pH 6.0 Invalid Interpretation Code 5.0-9.0 [facility] Comment on above: Performed By: #### 4 [id number] #### [facility] [address] [place] [address] UA Protein 1+ mg/dL Abnormal Negative [facility] Comment on above: Performed By: #### 4 [id number] #### [facility] [address] [place] [address] UA RBC 0-3 Normal 0-3 [facility] Comment on above: Performed By: #### 4 [id number] #### [facility] [address] [place] [address] UA Spec Grav 1.024 Invalid Interpretation Code 1.005-1.030 [facility] Comment on above: Performed By: #### 4 [id number] #### [facility] [address] [place] [address] UA Urobilinogen Negative Normal Negative [facility] Comment on above: Performed By: #### 4 [id number] #### [facility] [address] [place] [address] UA WBC 0-5 Normal 0-5 [facility] Comment on above: Performed By: #### 4 [id number] #### [facility] [address] [place] [address] Urobilinogen (U) [Mass/Vol] Negative Normal Negative [facility] Comment on above: Performed By: #### 4 [id number] #### [facility] [address] [place] [address] UA Spec Desc Clean Catch Normal [facility] Comment on above: Performed By: #### 4 [id number] #### [facility] [address] [place] [address] eGFRon 03-05-2025 eGFR 38 mL/min/1.73 m2 Low >=59 [facility] Comment on above: Performed By: #### 1 [id number] #### [facility] [address] [place] [address] Basic Metabolic Panelon 05-0 Anion gap [Moles/Vol] 13.7 mmol/L Normal 6.0-15.0 [facility] Comment on above: Performed By: #### B MP, MG, BHOB, CBC #### [address] Calcium [Mass/Vol] 8.9 mg/dL Normal 8.6-10.3 [facility] Comment on above: Performed By: #### B MP, MG, BHOB, CBC #### [address] Chloride [Moles/Vol] 98 mmol/L Normal 98-107 [facility] Comment on above: Performed By: #### B MP, MG, BHOB, CBC #### [address] CO2 [Moles/Vol] 23.1 mmol/L Normal 21.0-31.0 [facility] Comment on above: Performed By: #### B MP, MG, BHOB, CBC #### [address] Creatinine [Mass/Vol] 1.72 mg/dL High 0.70-1.30 [facility] Comment on above: Performed By: #### B MP, MG, BHOB, CBC #### [address] Creatinine Clr Calc Pharmacy 55.60 Normal [facility] Comment on above: Performed By: #### B MP, MG, BHOB, CBC #### [address] Estimated GFR 43.569 mL/Min Normal [facility] Comment on above: Performed By: #### B MP, MG, BHOB, CBC #### [address] Glucose [Mass/Vol] 739 mg/dL Off scale high 70-100 [facility] Comment on above: Result Comment: Crit ical Result Called to and read back by: SAMPSON WESTON at: 12/22/2024 18:30:49 by:[id number] Random Glucose Reference Range is dependent on time and content of last meal. Glucose of more than 200 mg/dL in a nonstressed, ambulatory subject supports the diagnosis of Diabetes Mellitus. ADA recommended reference range Performed By: #### B MP, MG, BHOB, CBC #### [address] Potassium [Moles/Vol] 4.8 mmol/L Normal 3.5-5.1 [facility] Comment on above: Performed By: #### B MP, MG, BHOB, CBC #### [address] Sodium [Moles/Vol] 130 mmol/L Low 136-145 [facility] Comment on above: Performed By: #### B MP, MG, BHOB, CBC #### [address] Urea nitrogen [Mass/Vol] 38 mg/dL High 7-25 [facility] Comment on above: Performed By: #### B MP, MG, BHOB, CBC #### [address] Beta Hydroxybuterateon 12-22 Beta Hydroxybuterate 1.12 mmol/L High 0.02-0.27 [facility] Comment on above: Result Comment: PERF ORMED BY: [place] [address] PATHOLOGIST [employer] PROJECT MANAGER MARIA LUISA SHAH M.D. Performed By: #### B MP, MG, BHOB, CBC #### [address] Complete Blood Count Auto Di ffon 12-22-2024 Basophils (Bld) [#/Vol] 0.2 10*3/uL Normal 0.0-0.2 [facility] Comment on above: Result Comment: PERF ORMED BY: [place] [address] PATHOLOGIST SENIOR CONSTRUCTION PROJECT MANAGER MARIA LUISA SHAH M.D. Performed By: #### B MP, MG, BHOB, CBC #### [address] Basophils/100 WBC (Bld) 2.6 % Normal . [facility] Comment on above: Performed By: #### B MP, MG, BHOB, CBC #### [address] Eosinophils (Bld) [#/Vol] 0.1 10*3/uL Normal 0.0-0.45 [facility] Comment on above: Performed By: #### B MP, MG, BHOB, CBC #### [address] Eosinophils/100 WBC (Bld) 2.0 % Normal . [facility] Comment on above: Performed By: #### B MP, MG, BHOB, CBC #### [address] Erythrocyte distribution width (RBC) [Ratio] 13.9 % Normal 12.0-14.8 [facility] Comment on above: Performed By: #### B MP, MG, BHOB, CBC #### [address] Hematocrit (Bld) [Volume fraction] 45.4 % Normal 38.8-50.0 [facility] Comment on above: Performed By: #### B MP, MG, BHOB, CBC #### [address] Hemoglobin (Bld) [Mass/Vol] 15.2 g/dL Normal 13.0-17.0 [facility] Comment on above: Performed By: #### B MP, MG, BHOB, CBC #### [address] Lymphocytes (Bld) [#/Vol] 1.5 10*3/uL Normal 1.00-4.8 [facility] Comment on above: Performed By: #### B MP, MG, BHOB, CBC #### [address] Lymphocytes/100 WBC (Bld) 23.7 % Normal . [facility] Comment on above: Performed By: #### B MP, MG, BHOB, CBC #### [address] MCH (RBC) [Entitic mass] 31.5 pg Normal 27.5-35.2 [facility] Comment on above: Performed By: #### B MP, MG, BHOB, CBC #### [address] MCV (RBC) [Entitic vol] 93.9 fL Normal 83.5-101 [facility] Comment on above: Performed By: #### B MP, MG, BHOB, CBC #### [address] Mean Corpuscular HGB Conc 33.5 g/dL Normal 32.5-35.6 [facility] Comment on above: Performed By: #### B MP, MG, BHOB, CBC #### [address] Monocytes (Bld) [#/Vol] 0.6 10*3/uL Normal 0.0-0.8 [facility] Comment on above: Performed By: #### B MP, MG, BHOB, CBC #### [address] Monocytes/100 WBC (Bld) 17.04 % Normal 0.00-20.00 [facility] Comment on above: Performed By: #### B MP, MG, BHOB, CBC #### [address] Monocytes/100 WBC (Bld) 9.3 % Normal . [facility] Comment on above: Performed By: #### B MP, MG, BHOB, CBC #### [address] Neutrophils (Bld) [#/Vol] 3.9 10*3/uL Normal 1.8-7.7 [facility] Comment on above: Performed By: #### B MP, MG, BHOB, CBC #### [place] [address] Neutrophils/100 WBC (Bld) 62.4 % Normal . [facility] Comment on above: Performed By: #### B MP, MG, BHOB, CBC #### [address] NRBC% 0.1 /100{WBC} Normal 0-0.5 [facility] Comment on above: Performed By: #### B MP, MG, BHOB, CBC #### [address] Platelet mean volume (Bld) [Entitic vol] 8.2 fL Normal 6.6-10.1 [facility] Comment on above: Performed By: #### B MP, MG, BHOB, CBC #### [address] Platelets (Bld) [#/Vol] 206 10*3/uL Normal 150-450 [facility] Comment on above: Performed By: #### B MP, MG, BHOB, CBC #### [address] RBC (Bld) [#/Vol] 4.83 10*6/uL Normal 3.90-5.60 [facility] Comment on above: Performed By: #### B MP, MG, BHOB, CBC #### [address] WBC (Bld) [#/Vol] 6.2 10*3/uL Normal 4.1-10.5 [facility] Comment on above: Performed By: #### B MP, MG, BHOB, CBC #### [address] Glucose Poct Glucometerson 0 - Glucose [Mass/Vol] 394 mg/dL Normal [facility] Comment on above: Result Comment: [facility] Glucose Reference Range is dependent on time and content of last meal. Glucose of more than 200 mg/dL in a nonstressed, ambulatory subject supports the diagnosis of Diabetes Mellitus. PERFORMED BY: [address] [place] [address] PATHOLOGIST S[employer]IOR [employer]STRUCTION PROJECT MANAGER MARIA LUISA SHAH M.D. Performed By: #### G LULS #### Point of Care testing , Commemt1 Normal [facility] Comment on above: Result Comment: Glu2 : WILL NOTIFY DR/RN PERFORMED BY: [place] [address] PATHOLOGIST SENIOR [employer]STRUCTION PROJECT MANAGER MARIA LUISA SHAH M.D. Performed By: #### G LULS #### Point of Care testing , Glucose [Mass/Vol] 514 mg/dL Off scale high [facility] Comment on above: Result Comment: [facility] Glucose Reference Range is dependent [...] B MP, MG, BHOB, CBC #### [address] Venous Blood Gason 5 CO2 [Moles/Vol] 24.3 mmol/L Normal 24.0-29.0 The [...] called on: 12/22/2024 at 17:51 PERFORMED BY: [place] [address] PATHOLOGIST SENIOR CONSTRUCTION PROJECT MANAGER MARIA LUISA SHAH M.D. Performed By: #### [...] Basophils/100 WBC (Bld) 0.9 % Normal 0.0-2.0 [facility] Comment on above: Performed By: #### 2 [id number] #### [facility] [address] [place] [address] Basophils/Leukocytes Auto (Bld) [Pure # fraction] 0.1 E9/L Normal 0.0-0.2 [facility] Comment on above: Performed By: #### 2 [id number] #### [facility] [address] [place] [address] Eosinophils (Bld) [#/Vol] 0.3 E9/L Normal 0.0-0.5 [facility] Comment on above: Performed By: #### 2 [id number] #### [facility] [address] [place] [address] Eosinophils/100 WBC (Bld) 4.2 % Normal 0.0-8.0 [facility] Comment on above: Performed By: #### 2 689444 #### [facility] [address] [place] [address] Erythrocyte distribution width (RBC) [Ratio] 14.0 % Normal 10.9-14.2 [facility] Comment on above: Performed By: #### 2 [id number] #### [facility] [address] [place] [address] Hematocrit (Bld) [Volume fraction] 40.7 % Normal 37.7-49.0 [facility] Comment on above: Performed By: #### 2 [id number] #### [facility] [address] [place] [address] Hemoglobin (Bld) [Mass/Vol] 14.3 g/dL Normal 13.5-17.5 [facility] Comment on above: Performed By: #### 2 [id number] #### [facility] [address] [place] [address] Lymphocytes (Bld) [#/Vol] 1.9 E9/L Normal 1.0-4.0 [facility] Comment on above: Performed By: #### 2 [id number] #### [facility] [address] [place] [address] Lymphocytes/100 WBC (Bld) 26.6 % Normal 14.0-50.0 [facility] Comment on above: Performed By: #### 2 [id number] #### [facility] [address] [place] [address] MCH (RBC) [Entitic mass] 31.3 pg Normal 27.0-34.0 [facility] Comment on above: Performed By: #### 2 [id number] #### [facility] [address] [place] [address] MCHC (RBC) [Mass/Vol] 35.1 g/dL Normal 31.4-36.0 [facility] Comment on above: Performed By: #### 2 [id number] #### [facility] [address] [place] [address] MCV (RBC) [Entitic vol] 89.2 fL Normal 80.0-100.0 [facility] Comment on above: Performed By: #### 2 698182 #### [facility] [address] [place] [address] Monocytes (Bld) [#/Vol] 0.5 E9/L Normal 0.2-1.0 [facility] Comment on above: Performed By: #### 2 248881 #### [facility] [address] [place] [address] Neutrophils (Bld) [#/Vol] 4.4 E9/L Normal 2.0-7.5 [facility] Comment on above: Performed By: #### 2 [id number] #### [facility] [address] [place] [address] Neutrophils/100 WBC (Bld) 61.3 % Normal 36.0-75.0 [facility] Comment on above: Performed By: #### 2 [id number] #### [facility] [address] [place] [address] Platelet mean volume (Bld) [Entitic vol] 8.2 fL Normal 6.4-10.8 [facility] Comment on above: Performed By: #### 2 081930 #### [facility] [address] [place] [address] Platelets (Bld) [#/Vol] 205.0 E9/L Normal 150.0-500.0 [facility] Comment on above: Performed By: #### 2 [id number] #### [facility] [address] [place] [address] RBC (Bld) [#/Vol] 4.6 E12/L Normal 4.3-5.9 [facility] Comment on above: Performed By: #### 2 335691 #### [facility] [address] [place] [address] WBC corrected for nucl RBC Auto (Bld) [#/Vol] 7.1 E9/L Normal 4.0-11.0 [facility] Comment on above: Performed By: #### 2 162400 #### [facility] [address] [place] [address] CHEMISTRYOrdered By: Lab ROP User on 12-21-2024 Glucose [Mass/Vol] 330 mg/dL High 55 - 99 mg/dL FTM C POC Subsection Comment on above: Result Comment: Pricila elbert Meter POC Username TATYANA CASAREZ Invalid Interpretation Code [facility] POC Subsection Sodium [Moles/Vol] 126812802733 mmol/L Invalid Interpretation Code [facility] POC Subsection Sodium [Moles/Vol] 169841399 mmol/L Invalid Interpretation Code [facility] POC Subsection Glucose [Mass/Vol] 483 mg/dL Invalid Interpretation Code 55 - 99 mg/dL [facility] POC Subsection Comment on above: Result Comment: Pricila elbert Meter POC Username TATYANA CASAREZ Invalid Interpretation Code [facility] POC Subsection Sodium [Moles/Vol] 807726729 mmol/L Invalid Interpretation Code [facility] POC Subsection Sodium [Moles/Vol] 983084660385 mmol/L Invalid Interpretation Code [facility] POC Subsection Glucose [Mass/Vol] 361 mg/dL High 55 - 99 mg/dL [facility] C POC Subsection Comment on above: Result Comment: Pricila elbert Meter POC Username TATYANA CASAREZ Invalid Interpretation Code [facility] POC Subsection Sodium [Moles/Vol] 206124448 mmol/L Invalid Interpretation Code [facility] POC Subsection Sodium [Moles/Vol] 800986446921 mmol/L Invalid Interpretation Code [facility] POC Subsection [...] 12-21-2024 Albumin [Mass/Vol] 2.9 g/dL Low 3.3-5.0 [facility] Comment on above: Performed By: #### 2 107109 #### [facility] [address] [place] [address] Albumin/Globulin (S) [Mass conc ratio] 1.1 Normal 1.1-2.2 [facility] Comment on above: Performed By: #### 2 469218 #### [facility] [address] [place] [address] ALP [Catalytic activity/Vol] 92 Int._Unit/L Normal 21-98 [facility] Comment on above: Performed By: #### 2 884293 #### [facility] [address] [place] [address] ALT No additional P-5'-P [Catalytic activity/Vol] 16 Int._Unit/L Normal 6-46 [facility] Comment on above: Performed By: #### 2 226409 #### [facility] [address] [place] [address] Anion gap [Moles/Vol] 11 mmol/L Normal 6-16 [facility] Comment on above: Performed By: #### 2 563524 #### [facility] [address] [place] [address] AST [Catalytic activity/Vol] 16 Int._Unit/L Normal 5-43 [facility] Comment on above: Performed By: #### 2 560116 #### [facility] [address] [place] [address] Bilirubin [Mass/Vol] 0.6 mg/dL Normal 0.0-1.1 [facility] Comment on above: Performed By: #### 2 605413 #### [facility] [address] [place] [address] Calcium [Mass/Vol] 8.1 mg/dL Low 8.9-11.1 [facility] Comment on above: Performed By: #### 2 647807 #### [facility] [address] [place] [address] Chloride [Moles/Vol] 102 mmol/L Normal 101-111 [facility] Comment on above: Performed By: #### 2 806954 #### [facility] [address] [place] [address] CO2 [Moles/Vol] 25 mmol/L Normal 21-31 [facility] Comment on above: Performed By: #### 2 109530 #### [facility] [address] [place] [address] Creatinine [Mass/Vol] 1.7 mg/dL High 0.5-1.3 [facility] Comment on above: Performed By: #### 2 475746 #### [facility] [address] [place] [address] Globulin (S) [Mass/Vol] 2.7 g/dL Normal 1.4-4.0 [facility] Comment on above: Performed By: #### 2 420656 #### [facility] [address] [place] [address] Glucose [Mass/Vol] 307 mg/dL High 55-199 [facility] Comment on above: Performed By: #### 2 183132 #### [facility] [address] [place] [address] Potassium [Moles/Vol] 4.0 mmol/L Normal 3.5-5.3 [facility] Comment on above: Performed By: #### 2 110654 #### [facility] [address] [place] [address] Protein [Mass/Vol] 5.6 g/dL Low 6.0-7.8 [facility] Comment on above: Performed By: #### 2 025366 #### [facility] [address] [place] [address] Sodium [Moles/Vol] 134 mmol/L Low 135-145 [facility] Comment on above: Performed By: #### 2 954448 #### [facility] [address] [place] [address] Urea nitrogen [Mass/Vol] 46 mg/dL High 5-21 [facility] Comment on above: Performed By: #### 2 691373 #### [facility] [address] [place] [address] Urea nitrogen/Creatinine [Mass ratio] 27 No Units High 10-20 [facility] Comment on above: Performed By: #### 2 181954 #### [facility] [address] [place] [address] Capillary Glucose POCon 05-0 Glucose [Mass/Vol] 330 mg/dL High 55-99 [facility] Comment on above: Result Comment: Pricila elbert Meter Performed By: #### 2 [id number] #### [facility] [address] [place] [address] Glucose [Mass/Vol] 483 mg/dL Abnormal 55-99 [facility] Comment on above: Result Comment: Pricila elbert Meter Performed By: #### 2 [id number] #### [facility] [address] [place] [address] Glucose [Mass/Vol] 361 mg/dL High 55-99 [facility] Comment on above: Result Comment: Pricila elbert Meter Performed By: #### 2 [id number] #### [facility] [address] [place] [address] Glucose [Mass/Vol] 274 mg/dL High 55-99 [facility] Comment on above: Result Comment: Thelma maxwell RN/ Performed By: #### 2 [id number] #### [facility] [address] [place] [address] Glucose [Mass/Vol] 246 mg/dL High 55-99 [facility] Comment on above: Result Comment: Thelma maxwell RN/ Performed By: #### 2 [id number] #### [facility] [address] [place] [address] Glucose [Mass/Vol] 95 mg/dL Normal 55-99 [facility] Comment on above: Result Comment: Thelma BAE Performed By: #### 2 [id number] #### [facility] [address] [place] [address] Glucose [Mass/Vol] 91 mg/dL Normal 55-99 [facility] Comment on above: Performed By: #### 2 [id number] #### [facility] [address] [place] [address] ED Note-Physicianon 12-22-19 ED Note-Physician ED Note-Physician [...] BID, # 20 cap(s), Refills(s) 0, Pharmacy: [id number], 183, cm, 06/23/24 13:45:00 EST, Height/Length Dosing, [...] IV Dispos (more content not included)... Normal [facility] Comment on above: Result Comment: [...] day(s), # 9 tab(s), Refills(s) 0, Pharmacy: [facility] #[id number], 183, cm, 12/19/24 10:26:00 EDT, Height/Length Dosing, [...] NS 1000 ml Bolus, 1000 mL, IV [id number] [F], 1000 mL, IV Valium 5 mg [...] days 12/22/[address] [place] [address]- Business (1) Additional Instructions: Patient Education Hyperglycemia Attestation I performed a substantive part of the MDM during the patient???s E/M visit. I personally made or approved the documented management plan and acknowledge its r (more content not included)... Normal [facility] Comment on above: Result Comment: [...] 12-21-2024 Inpatient Patient Summary Inpatient Patient Summary NICOLE LORA A :1960 Visit Date:12/20/2024 Inpatient Discharge Instructions Your [...] Single View This Is Your Medications List [facility] Prescription (Glucose Kit) Misc Prescription (Pen Needle [...] Discharge Instructions Follow up closely with your pump installer. Return to ER if symptoms return or worsen. Do not start tradjenta prescribed by your pump installer until you speak ask him it if is safe with your insulin. Can cause lows together. New Follow Up Appointments after Discharge Follow Up with KAYLA SWEENEY When: Comments: Follow as scheduled in December 2024 Where: [address] [place] [address]- Business (1) Follow Up with Mounika Brooke When: Within 7 to 10 days Comments: Call for followup appointment Where: [address] [place] [address]- Business (1) Medications What How Much When Why Instructions Next Dose New losartan (losartan 50 mg Tab) 1 Tablets By Mouth Every day Hypertension Refills: 1 Pickup at [facility] #[id number] 12/22 @ 0900am [facility] [place] Prescription (Glucose Kit) See instructions Hyperglycemia Glucose meter. Include autolet, matching test strips, lancets, & alcohol wipes, #100 or as allowed by insurance; DX: E11.9 Pickup at [facility] #[id number] New Misc Prescription (Pen Needle 31G x 6mm) See instructions Hyperglycemia Refills: 1 Pen Needle 31G x 6mm Pickup at [facility] #[id number] Changed insulin regular (HumuLIN R KwikPen (Concentrated) human recombinant 500 units/ mL subcutaneous solution) See instructions Diabetes mellitus with neuropathy inject 40 units under the skin in the morning, 40 in the evening and 20 at bedtime. Pickup at [facility] #[id number] 12/21 @ 0800pm Unchanged gabapentin (gabapentin 600 mg Tab) 1 Tablets By Mouth 3 times a day resume Unchanged methocarbamol (Robaxin-750 oral tablet) 1 Tablets By Mouth 3 times a day Duration: 3 Days resume [id number]: [address] [place], [place] [id number] [phone] Test Results CBC BMP WBC: 7.1 E9/L [...] (12/21/24 05:04: (more content not included)... Normal [facility] eGFRon 12-21-2024 eGFR 44 mL/min/1.73 m2 Low >=59 [facility] Comment on above: Performed By: #### 1 [id number] #### [facility] [address] [place] [address] BMPon 12-20-2024 Glucose [Mass/Vol] 792 mg/dL Abnormal 55-199 [facility] Comment on above: Result Comment: Crit ical Result [id number] Called to and read back by: PADDY BETANCOURT at: 12/20/2024 15:01:20 by:[id number] Critical Result Verified by Repeat Analysis Performed By: #### 2 [id number] #### [facility] [address] [place] [address] Anion gap [Moles/Vol] 16 mmol/L Normal 6-16 [facility] Comment on above: Performed By: #### 2 [id number] #### [facility] [address] [place] [address] Creatinine [Mass/Vol] 1.9 mg/dL High 0.5-1.3 [facility] Comment on above: Performed By: #### 2 [id number] #### [facility] [address] [place] [address] Urea nitrogen [Mass/Vol] 52 mg/dL High 5-21 [facility] Comment on above: Performed By: #### 2 [id number] #### [facility] [address] [place] [address] Urea nitrogen/Creatinine [Mass ratio] 27 No Units High 10-20 [facility] Comment on above: Performed By: #### 2 [id number] #### [facility] [address] [place] [address] Calcium [Mass/Vol] 8.8 mg/dL Low 8.9-11.1 [facility] Comment on above: Performed By: #### 2 [id number] #### [facility] [address] [place] [address] Chloride [Moles/Vol] 88 mmol/L Low 101-111 [facility] Comment on above: Performed By: #### 2 [id number] #### [facility] [address] [place] [address] CO2 [Moles/Vol] 24 mmol/L Normal 21-31 [facility] Comment on above: Performed By: #### 2 [id number] #### [facility] [address] [place] [address] Potassium [Moles/Vol] 5.0 mmol/L Normal 3.5-5.3 [facility] Comment on above: Performed By: #### 2 [id number] #### [facility] [address] [place] [address] Sodium [Moles/Vol] 123 mmol/L Low 135-145 [facility] Comment on above: Performed By: #### 2 [id number] #### [facility] [address] [place] [address] BOHBon 12-20-2024 Beta HB Qnt 2.86 mmol/L High 0.02-0.27 [facility] Comment on above: Performed By: #### 2 [id number] #### [facility] [address] [place] [address] Blood Gas Art, with Lytes, G hugh, [place] 12-20-2024 a/A Ratio Art 63.60 % Normal >=0.80 [facility] Comment on above: Performed By: #### 4 [id number] #### [facility] [address] [place] [address] AaDO2 Art 36.1 mmHg High 5.0-15.0 [facility] Comment on above: Performed By: #### 4 [id number] #### [facility] [address] [place] [address] Allens Test Positive Normal [facility] Comment on above: Performed By: #### 4 [id number] #### [facility] [address] [place] [address] Base Excess Arterial -2.8 mmol/L Low >=2.8 [facility] Comment on above: Performed By: #### 4 [id number] #### [facility] [address] [place] [address] cCa2+ Art 4.78 mg/dL Normal 4.40-5.30 [facility] Comment on above: Performed By: #### 4 [id number] #### [facility] [address] [place] [address] cCl- Art 92.0 mmol/L Low 101.0-111.0 [facility] Comment on above: Performed By: #### 4 [id number] #### [facility] [address] [place] [address] cGlu Art 749 mg/dL Abnormal 55-99 [facility] Comment on above: Result Comment: Resu lts Called To NICOLE MYERS By ASHLEY TUBBS12/20/2024 14:12:32 EDT And Read Back For Confirmation On _. Performed By: #### 4 [id number] #### [facility] [address] [place] [address] cK+ Art 4.5 mmol/L Normal 3.5-5.3 [facility] Comment on above: Performed By: #### 4 [id number] #### [facility] [address] [place] [address] cLac Art .8 mmol/L Normal .5-2.2 [facility] Comment on above: Performed By: #### 4 [id number] #### [facility] [address] [place] [address] roofer applicator+ Art 125.0 mmol/L Low 135.0-145.0 [facility] Comment on above: Performed By: #### 4 [id number] #### [facility] [address] [place] [address] Drawn by DCC Invalid Interpretation Code [facility] Comment on above: Performed By: #### 4 [id number] #### [facility] [address] [place] [address] FCOHb Art 2.1 % Normal 1.5-4.9 [facility] Comment on above: Result Comment: Refe rence range Nonsmoker <1.5% Smoker <5.0% Heavy Smoker <9.0% Performed By: #### 4 [id number] #### [facility] [address] [place] [address] FIO2 BG 21 Invalid Interpretation Code [facility] Comment on above: Performed By: #### 4 [id number] #### [facility] [address] [place] [address] FO2Hb Art 91.9 % Low 93.0-100.0 [facility] Comment on above: Performed By: #### 4 [id number] #### [facility] [address] [place] [address] HCO3 (Bld) [Moles/Vol] 22.0 mmol/L Normal 22.0-26.0 [facility] Comment on above: Performed By: #### 4 [id number] #### [facility] [address] [place] [address] Hemoglobin (Bld) [Mass/Vol] 15.4 g/dL Normal 12.0-17.0 [facility] Comment on above: Performed By: #### 4 [id number] #### [facility] [address] [place] [address] Oxygen saturation in Blood 93.9 % Low 95.0-100.0 [facility] Comment on above: Performed By: #### 4 [id number] #### [facility] [address] [place] [address] P CO2 Arterial 40.0 mmHg Normal 35.0-45.0 [facility] Comment on above: Performed By: #### 4 [id number] #### [facility] [address] [place] [address] P O2 Arterial 63.1 mmHg Low 80.0-100.0 [facility] Comment on above: Performed By: #### 4 [id number] #### [facility] [address] [place] [address] pH Arterial 7.358 Normal 7.350-7.450 [facility] Comment on above: Performed By: #### 4 [id number] #### [facility] [address] [place] [address] Sample Site R Radial Normal [facility] Comment on above: Performed By: #### 4 [id number] #### [facility] [address] [place] [address] Sample Type Arterial Draw Normal [facility] Comment on above: Performed By: #### 4 [id number] #### [facility] [address] [place] [address] CBC w/ Auto Diffon 5 Basophils/100 WBC (Bld) 1.1 % Normal 0.0-2.0 [facility] Comment on above: Performed By: #### 2 [id number] #### [facility] [address] [place] [address] Basophils/Leukocytes Auto (Bld) [Pure # fraction] 0.1 E9/L Normal 0.0-0.2 [facility] Comment on above: Performed By: #### 2 533415 #### [facility] [address] [place] [address] Eosinophils (Bld) [#/Vol] 0.2 E9/L Normal 0.0-0.5 [facility] Comment on above: Performed By: #### 2 088618 #### [facility] [address] [place] [address] Eosinophils/100 WBC (Bld) 3.8 % Normal 0.0-8.0 [facility] Comment on above: Performed By: #### 2 [id number] #### [facility] [address] [place] [address] Erythrocyte distribution width (RBC) [Ratio] 13.6 % Normal 10.9-14.2 [facility] Comment on above: Performed By: #### 2 970694 #### [facility] [address] [place] [address] Hematocrit (Bld) [Volume fraction] 46.1 % Normal 37.7-49.0 [facility] Comment on above: Performed By: #### 2 121940 #### [facility] [address] [place] [address] Hemoglobin (Bld) [Mass/Vol] 15.6 g/dL Normal 13.5-17.5 [facility] Comment on above: Performed By: #### 2 831194 #### [facility] [address] [place] [address] Lymphocytes (Bld) [#/Vol] 1.3 E9/L Normal 1.0-4.0 [facility] Comment on above: Performed By: #### 2 751108 #### [facility] [address] [place] [address] Lymphocytes/100 WBC (Bld) 21.6 % Normal 14.0-50.0 [facility] Comment on above: Performed By: #### 2 [id number] #### [facility] [address] [place] [address] MCH (RBC) [Entitic mass] 30.9 pg Normal 27.0-34.0 [facility] Comment on above: Performed By: #### 2 [id number] #### [facility] [address] [place] [address] MCHC (RBC) [Mass/Vol] 33.9 g/dL Normal 31.4-36.0 [facility] Comment on above: Performed By: #### 2 985763 #### [facility] [address] [place] [address] MCV (RBC) [Entitic vol] 91.3 fL Normal 80.0-100.0 [facility] Comment on above: Performed By: #### 2 [id number] #### [facility] [address] [place] [address] Monocytes (Bld) [#/Vol] 0.6 E9/L Normal 0.2-1.0 [facility] Comment on above: Performed By: #### 2 [id number] #### [facility] [address] [place] [address] Neutrophils (Bld) [#/Vol] 4.0 E9/L Normal 2.0-7.5 [facility] Comment on above: Performed By: #### 2 050492 #### [facility] [address] [place] [address] Neutrophils/100 WBC (Bld) 64.6 % Normal 36.0-75.0 [facility] Comment on above: Performed By: #### 2 [id number] #### [facility] [address] [place] [address] Platelet mean volume (Bld) [Entitic vol] 8.0 fL Normal 6.4-10.8 [facility] Comment on above: Performed By: #### 2 895725 #### [facility] [address] [place] [address] Platelets (Bld) [#/Vol] 190.0 E9/L Normal 150.0-500.0 [facility] Comment on above: Performed By: #### 2 [id number] #### [facility] [address] [place] [address] RBC (Bld) [#/Vol] 5.1 E12/L Normal 4.3-5.9 [facility] Comment on above: Performed By: #### 2 969348 #### [facility] [address] [place] [address] WBC corrected for nucl RBC Auto (Bld) [#/Vol] 6.2 E9/L Normal 4.0-11.0 [facility] Comment on above: Performed By: #### 2 [id number] #### [facility] [address] [place] [address] CHEMISTRYOrdered By: SYSTEM SYSTEM on 12-20-2024 Albumin [...] back by: PADDY BETANCOURT at: 12/20/2024 15:01:20 by:[id number] Critical Result Verified by Repeat Analysis Potassium [...] - 20 Remisol Chem Capillary Glucose POCon 05 Glucose [Mass/Vol] 180 mg/dL High 55-99 [facility] Comment on above: Result Comment: Thelma BAE Performed By: #### 2 [id number] #### [facility] [address] [place] [address] Glucose [Mass/Vol] 478 mg/dL Abnormal 55-99 [facility] Comment on above: Result Comment: Thelma BAE Performed By: #### 2 [id number] #### [facility] [address] [place] [address] Glucose [Mass/Vol] 476 mg/dL Abnormal 55- [facility] Comment on above: Result Comment: Thelma BAE Performed By: #### 2 [id number] #### [facility] [address] [place] [address] Glucose [Mass/Vol] mg/dL Abnormal 55-99 [facility] Comment on above: Result Comment: Thelma BAE Performed By: #### 2 [id number] #### [facility] [address] [place] [address] Glucose [Mass/Vol] mg/dL Abnormal 55-99 [facility] Comment on above: Result Comment: Thelma BAE Performed By: #### 2 [id number] #### [facility] [address] [place] [address] Glucose [Mass/Vol] mg/dL Abnormal 55-99 [facility] Comment on above: Performed By: #### 2 [id number] #### [facility] [address] [place] [address] ED Clinical Summaryon 2024 ED Clinical Summary ED Clinical Summary [place] [id number] ED Clinical Summary Person Information Name: NICOLE LORA/[place] Age: 64 Years : 1960 Sex: Male Language: Somali PCP: Mounika Brooke MD Marital Status: Phone: [phone] Visit Id: Visit Reason: Knee pain-swelling; Hyperglycemia; L KNEE PAIN Speciality: Acuity: 3 Enc Type: Observation Med Service: Medical Arrival: 12/20/2024 13:29:49 Discharge: LOS: 000 05:27 Checkin: 12/20/2024 13:29:49 Checkout: 12/20/2024 18:56:56 Dispo Type: Admitted as IP to this [facility] EVENTS: Event Name Event Status Request [...] 12/20/2024 18:35:13 12/20/2024 18:35:13 12/20/2024 18:35:14 ADDRESS: [address] [place] [phone] PHYS DOC NOTES: MEDICAL INFORMATION: Prescriptions Given: Medications [...] of other right toe(s); 6:Hyponatremia; 7:Obesity Normal [facility] ED Patient Education Noteon 12-20-2024 ED Patient Education Note ED Patient Education Note Normal [facility] ED Patient Summaryon 025 ED Patient Summary ED Patient Summary [address] [address] Patient Discharge Instructions Person Information Name: NICOLE LORA Age: 64 Years Arrival Date: 12/20/2024 13:29:49 Discharge Diagnosis: 1:Hyperglycemia; 2:Leg muscle spasm; 3:Noncompliance with medication regimen; 4:AMY (acute kidney injury); 5:Acquired absence of other right toe(s); 6:Hyponatremia; 7:Obesity Primary Care Physician: Mounika Brooke MD Provider Information Primary Provider: Nicole Myers DO Advanced Hard Tile Setter Apprentice:Paddy Betancourt PA-C The exam and treatment you received in the Emergency Department were for an urgent problem and are not intended as complete care. It is important that you follow up with a doctor, nurse practitioner, or physician???s public services assistant for ongoing care. If your symptoms [...] opioids can be used to help relieve mrmdfyiw-tq-nechkl pain and are often prescribed following a [...] be struggling with addiction, tell your health long term acute care registered nurse and ask for (more content not included)... Normal [facility] Extra Blueon 12-20-2024 Tube Collected Plasma Yes Invalid Interpretation Code [facility] Comment on above: Performed By: #### 1 [id number] #### [facility] [address] [place] [address] Blood GasesOrdered By: Akash Tubbs on 12-20-2024 a/A Ratio Art 63.60 % Normal >=0.80% [facility] Resp Auto SS AaDO2 Art 36.1 mm[Hg] High 5.0 - 15.0 mmHg [facility] Res p Auto SS Allens Test Positive (12/20/24 2:09 PM) Normal [facility] Resp Auto SS Base Excess Arterial -2.8 mmol/L Low >=2.8mmol/L FT Resp Auto SS cCa2+ Art 4.78 mg/dL Normal 4.40 - 5.30 mg/dL FT Re sp Auto SS cCl- Art 92.0 [...] 0.8 mmol/L Normal 0.5 - 2.2 mmol/L FT Res p Auto SS roofer applicator+ Art 125.0 mmol/L Low 135.0 - 145.0 mmol/L [facility] Resp Auto SS Drawn by DCC Invalid Interpretation Code [facility] Resp Auto SS FCOHb Art 2.1 % Normal 1.5 - 4.9 % [facility] Resp Auto SS Comment on above: Interpretive Data: R eference range Nonsmoker <1.5% Smoker <5.0% Heavy Smoker <9.0% FO2Hb Art 91.9 % Low 93.0 - 100.0 % [facility] Resp Auto SS HCO3 (Bld) [Moles/Vol] 22.0 mmol/L Normal 22.0 - 26.0 mmol/L [facility] Resp Auto SS Hemoglobin (Bld) [Mass/Vol] 15.4 g/dL Normal 12.0 - 17.0 gm/dL [facility] Resp Auto SS P CO2 Arterial 40.0 mm[Hg] Normal 35.0 - 45.0 mmHg [facility] Resp Auto SS P O2 Arterial 63.1 mm[Hg] Low 80.0 - 100.0 mmHg [facility] Resp Auto SS pH (Bld) 7.358 [pH] Normal 7.350 - 7.450 [facility] Resp Auto SS Sample Site R Radial (12/20/24 2:09 PM) Normal [facility] Resp Auto SS Sample Type Arterial Draw (12/20/24 2:09 PM) Normal [facility] Resp Auto SS Sodium [Moles/Vol] 21 mmol/L Invalid Interpretation Code [facility] Resp Auto SS HEMATOLOGYOrdered By: SYSTEM SYSTEM [...] (S) [Mass conc ratio] 1.1 Normal 1.1-2.2 [facility] Comment on above: Performed By: #### 2 140053 #### [facility] [address] [place] [address] Bilirubin.indirect [Mass or moles/Vol] 0.8 mg/dL Normal 0.1-0.9 [facility] Comment on above: Performed By: #### 2 050831 #### [facility] [address] [place] [address] Globulin (S) [Mass/Vol] 3.3 g/dL Normal 1.4-4.0 [facility] Comment on above: Performed By: #### 2 530760 #### [facility] [address] [place] [address] Albumin [Mass/Vol] 3.5 g/dL Normal 3.3-5.0 [facility] Comment on above: Performed By: #### 2 947501 #### [facility] [address] [place] [address] ALP [Catalytic activity/Vol] 156 Int._Unit/L High 21-98 [facility] Comment on above: Performed By: #### 2 093427 #### [facility] [address] [place] [address] ALT No additional P-5'-P [Catalytic activity/Vol] 22 Int._Unit/L Normal 6-46 [facility] Comment on above: Performed By: #### 2 781955 #### [facility] [address] [place] [address] AST [Catalytic activity/Vol] 18 Int._Unit/L Normal 5-43 [facility] Comment on above: Performed By: #### 2 276262 #### [facility] [address] [place] [address] Bilirubin [Mass/Vol] 0.9 mg/dL Normal 0.0-1.1 [facility] Comment on above: Performed By: #### 2 356187 #### [facility] [address] [place] [address] Bilirubin.direct [Mass/Vol] 0.1 mg/dL Normal 0.0-0.4 [facility] Comment on above: Performed By: #### 2 794934 #### [facility] [address] [place] [address] Protein [Mass/Vol] 6.8 g/dL Normal 6.0-7.8 [facility] Comment on above: Performed By: #### 2 635861 #### [facility] [address] [place] [address] Pre-Arrival Noteon Pre-Arrival Note Pre-Arrival Note Pre-Arrival Summary Name: , [facility] Current Date: 12/20/2024 13:30:15 EDT Gender: Male Date of : Age: 64 Pre-Arrival Type: EMS ETA: 12/20/2024 13:49:00 EDT Primary Care Physician: Presenting Problem: L knee pain, seen yesterday AMA? Pre-Arrival User: Kiersten Theodore RN Referring Source: Location: PA Completion Date/Time: 12/20/2024 13:20:00 [facility] Emergency Department Pre-Hospital Report Form Vital Signs: Pre-Hospital Report: Treatment in Route: Response to Treatment: Misc. Issues: Normal [facility] UA with Cult Rflxon 12-21-19 25 Bilirubin Ql (U) Negative Normal Negative [facility] Comment on above: Performed By: #### 4 [id number] #### [facility] [address] [place] [address] Clarity (U) Clear Normal Clear [facility] Comment on above: Performed By: #### 4 [id number] #### [facility] [address] [place] [address] Color (U) Colorless Abnormal Yellow [facility] Comment on above: Result Comment: Micr oscopic readings are only performed on those samples that meet specific criteria set forth by [facility]. Performed By: #### 4 [id number] #### [facility] [address] [place] [address] Glucose Ql (U) 4+ mg/dL Abnormal Negative [facility] Comment on above: Performed By: #### 4 [id number] #### [facility] [address] [place] [address] Hemoglobin Auto test strip (U) [Mass/Vol] Negative Normal Negative [facility] Comment on above: Performed By: #### 4 [id number] #### [facility] [address] [place] [address] Ketones Auto test strip Ql (U) Trace Abnormal Negative [facility] Comment on above: Performed By: #### 4 [id number] #### [facility] [address] [place] [address] Leukocyte esterase Auto test strip Ql (U) Negative Normal Negative [facility] Comment on above: Performed By: #### 4 [id number] #### [facility] [address] [place] [address] Mucus Auto Ql (U) Negative Normal Negative [facility] Comment on above: Performed By: #### 4 [id number] #### [facility] [address] [place] [address] Nitrite Auto test strip Ql (U) Negative Normal Negative [facility] Comment on above: Performed By: #### 4 [id number] #### [facility] [address] [place] [address] pH (U) 5.5 [pH] Invalid Interpretation Code 5.0-9.0 [facility] Comment on above: Performed By: #### 4 [id number] #### [facility] [address] [place] [address] Protein Ql (U) 1+ mg/dL Abnormal Negative [facility] Comment on above: Performed By: #### 4 [id number] #### [facility] [address] [place] [address] Specific gravity (U) [Rel density] 1.018 Invalid Interpretation Code 1.005-1.030 [facility] Comment on above: Performed By: #### 4 [id number] #### [facility] [address] [place] [address] Urobilinogen (U) [Mass/Vol] Negative Normal Negative [facility] Comment on above: Performed By: #### 4 [id number] #### [facility] [address] [place] [address] Type of Urine collection method Clean Catch Normal [facility] Comment on above: Performed By: #### 4 [id number] #### [facility] [address] [place] [address] URINALYSISOrdered By: SYSTEM SYSTEM on 12-20-2024 Bilirubin Ql (U) Negative Normal Negativemg/dL FT UA Auto SS Clarity (U) Clear (12/20/24 4:37 PM) Normal Clear [facility] UA Auto SS Color (U) Colorless 1 *ABN* (12/20/24 4:37 PM) Invalid Interpretation Code Yellow [facility] UA Auto SS Comment on above: Interpretive Data: M icroscopic readings are only performed on those samples that meet specific criteria set forth by [facility]. Glucose Ql (U) 4+ mg/dL Invalid [...] Desc Clean Catch (12/20/24 4:37 PM) Normal [facility] UA Auto SS Work Phone: XR Chest [...] MD Transcribed by: KAT Technologist: Boris BARNEY [facility] eGFRon 12-20-2024 eGFR 38 mL/min/1.73 m2 Low >=59 [facility] Comment on above: Performed By: #### 1 [id number] #### [facility] [address] [place] [address] BMPon 12-19-2024 Anion gap [Moles/Vol] 15 mmol/L Normal 6-16 [facility] Comment on above: Performed By: #### 2 405359 #### [facility] [address] [place] [address] Calcium [Mass/Vol] 8.1 mg/dL Low 8.9-11.1 [facility] Comment on above: Performed By: #### 2 141225 #### [facility] [address] [place] [address] Chloride [Moles/Vol] 80 mmol/L Abnormal 101-111 [facility] Comment on above: Result Comment: Crit ical Result Verified by Repeat Analysis Critical Result S_CL:80 Called to and read back by: TREMAINE LAND at: 12/19/2024 12:00:32 by:VANESSA Performed By: #### 2 [id number] #### [facility] [address] [place] [address] CO2 [Moles/Vol] 24 mmol/L Normal 21-31 [facility] Comment on above: Performed By: #### 2 571005 #### [facility] [address] [place] [address] Creatinine [Mass/Vol] 1.9 mg/dL High 0.5-1.3 [facility] Comment on above: Performed By: #### 2 288821 #### [facility] [address] [place] [address] Glucose [Mass/Vol] 1228 mg/dL Abnormal 55-199 [facility] Comment on above: Result Comment: Crit ical Result Verified by Repeat Analysis Result Verified by Dilution Critical Result S_GLU:1228 Called to and read back by: TREMAINE LAND at: 12/19/2024 12:00:32 by:VANESSA Performed By: #### 2 268287 #### [facility] [address] [place] [address] Potassium [Moles/Vol] 4.7 mmol/L Normal 3.5-5.3 [facility] Comment on above: Performed By: #### 2 597080 #### [facility] [address] [place] [address] Sodium [Moles/Vol] 114 mmol/L Abnormal 135-145 [facility] Comment on above: Result Comment: Crit ical Result Verified by Repeat Analysis Critical Result S_NA of 114 Called to and read back by: TREMAINE LAND at: 12/19/2024 12:00:32 by:VNAESSA Performed By: #### 2 886119 #### [facility] [address] [place] [address] Urea nitrogen [Mass/Vol] 54 mg/dL High 5-21 [facility] Comment on above: Performed By: #### 2 209266 #### [facility] [address] [place] [address] Urea nitrogen/Creatinine [Mass ratio] 28 No Units High 10-20 [facility] Comment on above: Performed By: #### 2 565867 #### [facility] [address] [place] [address] BOHBon 12-19-2024 Beta HB Qnt 1.12 mmol/L High 0.02-0.27 [facility] Comment on above: Performed By: #### 2 [id number] #### [facility] [address] [place] [address] CBC w/ Auto Diffon 5 Basophils/100 WBC (Bld) 0.8 % Normal 0.0-2.0 [facility] Comment on above: Performed By: #### 2 743360 #### [facility] [address] [place] [address] Basophils/Leukocytes Auto (Bld) [Pure # fraction] 0.1 E9/L Normal 0.0-0.2 [facility] Comment on above: Performed By: #### 2 182969 #### [facility] [address] [place] [address] Eosinophils (Bld) [#/Vol] 0.2 E9/L Normal 0.0-0.5 [facility] Comment on above: Performed By: #### 2 721813 #### [facility] [address] [place] [address] Eosinophils/100 WBC (Bld) 3.6 % Normal 0.0-8.0 [facility] Comment on above: Performed By: #### 2 919093 #### [facility] [address] [place] [address] Erythrocyte distribution width (RBC) [Ratio] 13.4 % Normal 10.9-14.2 [facility] Comment on above: Performed By: #### 2 239386 #### [facility] [address] [place] [address] Hematocrit (Bld) [Volume fraction] 46.6 % Normal 37.7-49.0 [facility] Comment on above: Performed By: #### 2 596832 #### [facility] [address] [place] [address] Hemoglobin (Bld) [Mass/Vol] 15.3 g/dL Normal 13.5-17.5 [facility] Comment on above: Performed By: #### 2 574300 #### [facility] [address] [place] [address] Lymphocytes (Bld) [#/Vol] 1.6 E9/L Normal 1.0-4.0 [facility] Comment on above: Performed By: #### 2 003714 #### [facility] [address] [place] [address] Lymphocytes/100 WBC (Bld) 24.8 % Normal 14.0-50.0 [facility] Comment on above: Performed By: #### 2 264358 #### [facility] [address] [place] [address] MCH (RBC) [Entitic mass] 31.0 pg Normal 27.0-34.0 [facility] Comment on above: Performed By: #### 2 907506 #### [facility] [address] [place] [address] MCHC (RBC) [Mass/Vol] 32.7 g/dL Normal 31.4-36.0 [facility] Comment on above: Performed By: #### 2 548771 #### [facility] [address] [place] [address] MCV (RBC) [Entitic vol] 94.8 fL Normal 80.0-100.0 [facility] Comment on above: Performed By: #### 2 844915 #### [facility] [address] [place] [address] Monocytes (Bld) [#/Vol] 0.6 E9/L Normal 0.2-1.0 [facility] Comment on above: Performed By: #### 2 510237 #### [facility] [address] [place] [address] Neutrophils (Bld) [#/Vol] 3.9 E9/L Normal 2.0-7.5 [facility] Comment on above: Performed By: #### 2 522351 #### [facility] [address] [place] [address] Neutrophils/100 WBC (Bld) 61.6 % Normal 36.0-75.0 [facility] Comment on above: Performed By: #### 2 011995 #### [facility] [address] [place] [address] Platelet 219.0 E9/L Normal 150.0-500.0 [facility] Comment on above: Performed By: #### 2 214621 #### [facility] [address] [place] [address] Platelet mean volume (Bld) [Entitic vol] 8.5 fL Normal 6.4-10.8 [facility] Comment on above: Performed By: #### 2 102891 #### [facility] [address] [place] [address] RBC (Bld) [#/Vol] 4.9 E12/L Normal 4.3-5.9 [facility] Comment on above: Performed By: #### 2 369138 #### [facility] [address] [place] [address] WBC corrected for nucl RBC Auto (Bld) [#/Vol] 6.4 E9/L Normal 4.0-11.0 [facility] Comment on above: Performed By: #### 2 743987 #### [facility] [address] [place] [address] Capillary Glucose POCon 0 Glucose [Mass/Vol] mg/dL Abnormal 55-99 [facility] Comment on above: Result Comment: Thelma maxwell RN/ Performed By: #### 2 [id number] #### [facility] [address] [place] [address] ED Clinical Summaryon 2024 ED Clinical Summary ED Clinical Summary [address] [address] ED Clinical Summary Person Information Name: [facility] Age[facility] 64 Years : 1960 Sex: Male Language: Somali PCP: Mounika Brooke MD Marital Status: Phone: [phone] Visit Id: Visit Reason: Leg pain-swelling; Weakness [...] 12/19/2024 14:13:49 12/19/2024 14:13:49 12/19/2024 14:13:49 ADDRESS: [address] [place] [id number] PHYS DOC NOTES: MEDICAL INFORMATION: Prescriptions Given: New Medications [id number], [address] [place], [place] [id number], [phone] methocarbamol (Robaxin-750 oral tablet) 1 Tablets By [...] Refills: 4. Misc Prescription (Freestyle Sage 2 Freeland) Use daily with sensor. Refills: 0. Misc Prescription (Freestyle Sage 2 Sensors) Apply one q 14 days. Refills: 3. Misc Prescription (Glucometer test strips) Test TID DX E11.40 on insulin. Refills: 11. Misc Prescription (Glucometer) Dispense 1 Glucometer. Refills: 0. Misc Prescription (Insulin Pen Washburn 31g x 8 mm) Use up to 4 daily. Refills: 4. (more content not included)... Normal [facility] ED Patient Summaryon 025 ED Patient Summary ED Patient Summary [address] [address] Patient Discharge Instructions Person Information Name: NICOLE LORA Age: 64 Years Arrival Date: 12/19/2024 10:20:20 Discharge Diagnosis: Hyperglycemia; Muscle cramps Primary Care Physician: Mendy LYMAN, Mounika Lugo Provider Information Primary Provider: Corky Luo MD Advanced Hard Tile Setter Apprentice:Jesus Grijalva PA-C The exam and treatment you received in the Emergency Department were for an urgent problem and are not intended as complete care. It is important that you follow up with a doctor, nurse practitioner, or physician???s public services assistant for ongoing care. If your symptoms [...] Instructions: With: Address: When: Mounika Brooke [facility] [address] Business (1) In 3 days 12/22/2024 In the event that this physician does not participate in your insurance network, please consult with your insurance company to find a nearby participating provider. Patient Education Materials: Hyperglycemia A MESSAGE TO ALL PATIENTS REGARDING OPIOIDS PRESCRIPTION OPIOIDS: WHAT YOU NEED TO KNOW Prescription opioids can be used to help relieve pglmlqjz-oy-gyzbtg pain and are often prescribed following a [...] be struggling with addiction, tell your health long term acute care registered nurse and ask for guidance o (more content not included)... Normal [facility] Extra Blueon 12-19-2024 Tube Collected Plasma Yes Invalid Interpretation Code [facility] Comment on above: Performed By: #### 1 [id number] #### [facility] [address] [place] [address] Hep Func Panelon 12-19-2024 Albumin [Mass/Vol] 3.4 g/dL Normal 3.3-5.0 [facility] Comment on above: Performed By: #### 2 814499 #### [facility] [address] [place] [address] Albumin/Globulin (S) [Mass conc ratio] 1.1 Normal 1.1-2.2 [facility] Comment on above: Performed By: #### 2 778865 #### [facility] [address] [place] [address] ALP [Catalytic activity/Vol] 208 Int._Unit/L High 21-98 [facility] Comment on above: Performed By: #### 2 371363 #### [facility] [address] [place] [address] ALT No additional P-5'-P [Catalytic activity/Vol] 25 Int._Unit/L Normal 6-46 [facility] Comment on above: Performed By: #### 2 358499 #### [facility] [address] [place] [address] AST [Catalytic activity/Vol] 26 Int._Unit/L Normal 5-43 [facility] Comment on above: Performed By: #### 2 436401 #### [facility] [address] [place] [address] Bilirubin [Mass/Vol] 0.9 mg/dL Normal 0.0-1.1 [facility] Comment on above: Performed By: #### 2 324506 #### [facility] [address] [place] [address] Bilirubin.direct [Mass/Vol] 0.1 mg/dL Normal 0.0-0.4 [facility] Comment on above: Performed By: #### 2 371619 #### [facility] [address] [place] [address] Bilirubin.indirect [Mass or moles/Vol] 0.8 mg/dL Normal 0.1-0.9 [facility] Comment on above: Performed By: #### 2 534639 #### [facility] [address] [place] [address] Globulin (S) [Mass/Vol] 3.1 g/dL Normal 1.4-4.0 [facility] Comment on above: Performed By: #### 2 122247 #### [facility] [address] [place] [address] Protein [Mass/Vol] 6.5 g/dL Normal 6.0-7.8 [facility] Comment on above: Performed By: #### 2 208174 #### [facility] [address] [place] [address] XR Chest Single Viewon 12-19 XR Chest [...] Shaquille Broussard DO Transcribed by: KAT Technologist: ECTOR, Boris [facility] eGFRon 12-19-2024 eGFR 38 mL/min/1.73 m2 Low >=59 [facility] Comment on above: Performed By: #### 1 [id number] #### [facility] [address] [place] [address] ED Note-Physicianon 12-17-19 ED Note-Physician ED Note-Physician Basic Information Time Seen: Paddy Betancourt PA-C 12/02/2024 12:42 Chief Complaint Concerned for dehydration. [...] day(s), # 20 cap(s), Refills(s) 0, Pharmacy: [facility][id number], 183, cm, 12/02/24 12:47:0 (more content not included)... Normal [facility] Comment on above: Result Comment: Elec tronically Signed By: Paddy Betancourt PA-C\.br\Date and Time Signed: 12/02/24 15:27 EDT\.br\Electronically Co-Signed By: Nicole Myers DO\.samir\Date and Time Co-Signed: 12/16/24 07:10 EDT BMPon 12-02-2024 Anion gap [Moles/Vol] 16 mmol/L Normal 6-16 [facility] Comment on above: Performed By: #### 2 199048 #### [facility] [address] [place] [address] Calcium [Mass/Vol] 9.0 mg/dL Normal 8.9-11.1 [facility] Comment on above: Performed By: #### 2 728253 #### [facility] [address] [place] [address] Chloride [Moles/Vol] 87 mmol/L Low 101-111 [facility] Comment on above: Performed By: #### 2 104715 #### [facility] [address] [place] [address] CO2 [Moles/Vol] 25 mmol/L Normal 21-31 [facility] Comment on above: Performed By: #### 2 162607 #### [facility] [address] [place] [address] Creatinine [Mass/Vol] 1.6 mg/dL High 0.5-1.3 [facility] Comment on above: Performed By: #### 2 386430 #### [facility] [address] [place] [address] Glucose [Mass/Vol] 751 mg/dL Abnormal 55-199 [facility] Comment on above: Result Comment: Crit ical Result Verified by Repeat Analysis Critical Result S_GLU:751 Called to and read back by: TREMAINE LAND at: 12/02/2024 13:48:34 by:WOODY Performed By: #### 2 231013 #### [facility] [address] [place] [address] Potassium [Moles/Vol] 4.4 mmol/L Normal 3.5-5.3 [facility] Comment on above: Performed By: #### 2 458108 #### [facility] [address] [place] [address] Sodium [Moles/Vol] 124 mmol/L Low 135-145 [facility] Comment on above: Performed By: #### 2 770422 #### [facility] [address] [place] [address] Urea nitrogen [Mass/Vol] 40 mg/dL High 5-21 [facility] Comment on above: Performed By: #### 2 074514 #### [facility] [address] [place] [address] Urea nitrogen/Creatinine [Mass ratio] 25 No Units High 10-20 [facility] Comment on above: Performed By: #### 2 821269 #### [facility] [address] [place] [address] CBC w/ Auto Diffon 5 Basophils/100 WBC (Bld) 0.6 % Normal 0.0-2.0 [facility] Comment on above: Performed By: #### 2 458365 #### [facility] [address] [place] [address] Basophils/Leukocytes Auto (Bld) [Pure # fraction] 0.0 E9/L Normal 0.0-0.2 [facility] Comment on above: Performed By: #### 2 823745 #### [facility] [address] [place] [address] Eosinophils (Bld) [#/Vol] 0.2 E9/L Normal 0.0-0.5 [facility] Comment on above: Performed By: #### 2 604912 #### [facility] [address] [place] [address] Eosinophils/100 WBC (Bld) 2.8 % Normal 0.0-8.0 [facility] Comment on above: Performed By: #### 2 314288 #### [facility] [address] [place] [address] Erythrocyte distribution width (RBC) [Ratio] 13.4 % Normal 10.9-14.2 [facility] Comment on above: Performed By: #### 2 385314 #### [facility] [address] [place] [address] Hematocrit (Bld) [Volume fraction] 48.9 % Normal 37.7-49.0 [facility] Comment on above: Performed By: #### 2 729233 #### [facility] [address] [place] [address] Hemoglobin (Bld) [Mass/Vol] 16.6 g/dL Normal 13.5-17.5 [facility] Comment on above: Performed By: #### 2 889107 #### [facility] [address] [place] [address] Lymphocytes (Bld) [#/Vol] 1.2 E9/L Normal 1.0-4.0 [facility] Comment on above: Performed By: #### 2 584169 #### [facility] [address] [place] [address] Lymphocytes/100 WBC (Bld) 20.6 % Normal 14.0-50.0 [facility] Comment on above: Performed By: #### 2 410845 #### [facility] [address] [place] [address] MCH (RBC) [Entitic mass] 31.4 pg Normal 27.0-34.0 [facility] Comment on above: Performed By: #### 2 539744 #### [facility] [address] [place] [address] MCHC (RBC) [Mass/Vol] 33.9 g/dL Normal 31.4-36.0 [facility] Comment on above: Performed By: #### 2 572304 #### [facility] [address] [place] [address] MCV (RBC) [Entitic vol] 92.6 fL Normal 80.0-100.0 [facility] Comment on above: Performed By: #### 2 053326 #### [facility] [address] [place] [address] Monocytes (Bld) [#/Vol] 0.4 E9/L Normal 0.2-1.0 [facility] Comment on above: Performed By: #### 2 624273 #### [facility] [address] [place] [address] Neutrophils (Bld) [#/Vol] 4.1 E9/L Normal 2.0-7.5 [facility] Comment on above: Performed By: #### 2 822376 #### [facility] [address] [place] [address] Neutrophils/100 WBC (Bld) 69.1 % Normal 36.0-75.0 [facility] Comment on above: Performed By: #### 2 215192 #### [facility] [address] [place] [address] Platelet mean volume (Bld) [Entitic vol] 7.5 fL Normal 6.4-10.8 [facility] Comment on above: Performed By: #### 2 127486 #### [facility] [address] [place] [address] Platelets (Bld) [#/Vol] 268.0 E9/L Normal 150.0-500.0 [facility] Comment on above: Performed By: #### 2 702292 #### [facility] [address] [place] [address] RBC (Bld) [#/Vol] 5.3 E12/L Normal 4.3-5.9 [facility] Comment on above: Performed By: #### 2 201726 #### [facility] [address] [place] [address] WBC corrected for nucl RBC Auto (Bld) [#/Vol] 6.0 E9/L Normal 4.0-11.0 [facility] Comment on above: Performed By: #### 2 086315 #### [facility] [address] [place] [address] CHEMISTRYOrdered By: SYSTEM SYSTEM on 12-02-2024 Anion [...] 2024 ED Clinical Summary ED Clinical Summary [place] [id number] ED Clinical Summary Person Information Name: NICOLE LORA/[facility] Age: 64 Years : 1960 Sex: Male Language: Somali PCP: Mounika Brooke MD Marital Status: Phone: [phone] Visit Id: Visit Reason: Nausea; Dehydration; PT [...] 12/02/2024 15:24:12 12/02/2024 15:24:12 12/02/2024 15:24:12 ADDRESS: [address] [place] [id number] PHYS DOC NOTES: MEDICAL INFORMATION: Prescriptions Given: [id number], [address] [place], [place] [id number], [phone] cefdinir (cefdinir 300 mg Cap) 1 Capsules By Mouth every 12 hours for 10 Days. Refills: 0. Medications to Continue Taking That Have Changed [id number], [address] [place], [place] [id number], [phone] START: doxycycline (doxycycline hyclate 100 mg Cap) [...] (Freestyle Li (more content not included)... Normal [facility] ED Note-Nursingon 12-02-2024 ED Note-Nursing ED Note-Nursing pt. leaves AMA at this time. paper signed. Normal [facility] ED Patient Summaryon 025 ED Patient Summary ED Patient Summary [place] [id number] Patient Discharge Instructions Person Information Name: NICOLE LORA Age: 64 Years Arrival Date: 12/02/2024 12:35:03 Discharge Diagnosis: Bronchitis; Hyperglycemia; Left against medical advice Primary Care Physician: Mendy LYMAN, Mounika Lugo Provider Information Primary Provider: Nicole Myers DO Advanced Hard Tile Setter Apprentice:Greyson ENGLE, Paddy Nunez. The exam and treatment you received in the Emergency Department were for an urgent problem and are not intended as complete care. It is important that you follow up with a doctor, nurse practitioner, or physician???s public services assistant for ongoing care. If your symptoms [...] Follow-up Instructions: With: Address: When: Mounika Mendy [place] [address] [place] (1) In 3 days 12/05/2024 Comments: Call Dr for diagnosis based follow up In the event that this physician does not participate in your insurance network, please consult with your insurance company to find a nearby participating provider. Patient Education Materials: Acute Bronchitis, Adult; Type 2 Diabetes Mellitus, Self-Care, Adult, Ekly-sw-Jrte; Hyperglycemia A MESSAGE TO ALL PATIENTS REGARDING OPIOIDS PRESCRIPTION OPIOIDS: WHAT YOU NEED TO KNOW Prescription opioids can be used to help relieve vgewoofe-jz-jvuotr pain and are often prescribed following a [...] to cj (more content not included)... Normal [facility] Extra Blueon 12-02-2024 Tube Collected Plasma Yes Invalid Interpretation Code [facility] Comment on above: Performed By: #### 1 [id number] #### [facility] [address] [place] [address] HEMATOLOGYOrdered By: SYSTEM SYSTEM on 12-02-2024 Basophils/100 [...] DO Transcribed by: KAT Technologist: PORSHA Normal [facility] eGFRon 12-02-2024 eGFR 47 mL/min/1.73 m2 Low >=59 [facility] Comment on above: Performed By: #### 1 [id number] #### [facility] [address] [place] [address] Glucose (Bld) [Mass/Vol]on 0 09-04-2024 Glucose Blood, POC 406 mg/dL [facility] - Hematology and Cell countson 09-04-2024 HbA1c (Bld) [Mass fraction] 12.9 % [facility] No Panel Informationon 09-04 [facility] Left eye Ophthalmologic jemma tmenton 07-22-2024 [facility] Radiology Study observation (narrative) [facility] Optical coherence tomography study reporton 07-22-2024 [facility] Left Eye Quality was good. Scan locations included subfoveal, juxtafoveal, extrafoveal, temporal. Progression has been stable. Notes Proliferative diabetic retinopathy of left eye [facility] Radiology Study observation (narrative) [facility] Glucose (Bld) [Mass/Vol]Orde red By: Amanda Cesar on 07-15-2024 Glucose Blood, POC 243 mg/dL [facility] ED Clinical Summaryon 2023 ED Clinical Summary ED Clinical Summary [address] [address] ED Clinical Summary Person Information Name: NICOLE LORA/[facility] Age: 64 Years : 1960 Sex: Male Language: Somali PCP: Mounika Brooke MD Marital Status: Phone: [phone] Visit Id: Visit Reason: Arm pain-swelling; RIGHT [...] 07/09/2024 16:21:24 07/09/2024 16:21:24 07/09/2024 16:21:24 ADDRESS: [address] [place] [phone] PHYS DOC NOTES: MEDICAL INFORMATION: Prescriptions Given: New Medications [facility] #[id number], [address] [place], [place] [id number], [phone] acetaminophen-oxycodo ne (Percocet 5 mg-325 mg oral [...] Refills: 4. Misc Prescription (Freestyle Sage 2 Freeland) Use daily with sensor. Refills: 0. Misc Prescription (Freestyle Sage 2 Sensors) Apply one q 14 days. Refills: 3. Misc Prescription (Glucometer test strips) Test TID DX E11.40 on insulin. Refills: 11. Misc Prescription (Glucometer) Dispense 1 Glucometer. Refills: 0. Misc Prescription (Insulin Pen Washburn 31g x 8 mm) Use up to [...] hours a (more content not included)... Normal [facility] ED Note-Physicianon 07-09-20 ED Note-Physician ED Note-Physician Basic Information Time Seen: Jesus Grijalva PA-C 07/09/2024 14:40 Chief Complaint c/o right arm [...] for 3 day(s), 10 tab(s), Refill(s) 0, [id number], 183, cm, 07/09/24 14:44:00 EST, Height/Length Dosing, [...] PRN Follow-up With When Contact Information Zak Quiñones In 3 days 07/12/2024 EST [address] [facility] [id number] (1) Additional Instructions: Patient Education Tendinitis Attestation [...] made to ensure accuracy, however, inadvertently computerized realtime court reporter mistakes may be present. Appropriate healthcare PPE [...] disorder, severe (more content not included)... Normal [facility] Comment on above: Result Comment: Elec tronically Signed By: Jesus Grijalva PA-C\.br\Date and Time Signed: 07/09/24 16:16 EST\.br\Electronically Co-Signed By: Nicole Myers DO\.br\Date and Time Co-Signed: 07/09/24 18:49 EST ED Patient Summaryon 024 ED Patient Summary ED Patient Summary [address] [address] Patient Discharge Instructions Person Information Name: NICOLE LORA Age: 64 Years Arrival Date: 07/09/2024 14:35:34 Discharge Diagnosis: Left shoulder pain; Tendinitis Primary Care Physician: Mounika Brooke MD Provider Information Primary Provider: Nicole Myers DO Advanced Hard Tile Setter Apprentice:Jesus Grijalva PA-C The exam and treatment you received in the Emergency Department were for an urgent problem and are not intended as complete care. It is important that you follow up with a doctor, nurse practitioner, or physician???s public services assistant for ongoing care. If your symptoms [...] Follow-up Instructions: With: Address: When: Zak Quiñones [address] [place] [address] Business (1) In 3 days 07/12/2024 In the event that this physician does not participate in your insurance network, please consult with your insurance company to find a nearby participating provider. Patient Education Materials: Mar[employer] A MESSAGE TO ALL PATIENTS REGARDING OPIOIDS PRESCRIPTION OPIOIDS: WHAT YOU NEED TO KNOW Prescription opioids can be used to help relieve ftawmhhl-oe-qbkcyv pain and are often prescribed following a [...] be struggling with addiction, tell your health long term acute care registered nurse and ask for ernst (more content not included)... Normal [facility] XR Shoulder Complete Righton 07-09-2024 XR Shoulder [...] Primo Robles MD Transcribed by: KAT Technologist: TORI Technical Comments Radiation Dose: Ka,r in mGy = na DAP = na Normal [facility] ED Clinical Summaryon 2023 ED Clinical Summary ED Clinical Summary [place] [id number] ED Clinical Summary Person Information Name: NICOLE LORA/[facility] Age: 64 Years : 1960 Sex: Male Language: Somali PCP: Mounika Brooke MD Marital Status: Phone: [phone] Visit Id: Visit Reason: Rib/trunk pain-swelling; RIB [...] 06/23/2024 14:01:17 06/23/2024 14:01:17 06/23/2024 14:01:17 ADDRESS: [address] [place] [phone] PHYS DOC NOTES: MEDICAL INFORMATION: Prescriptions Given: New Medications [facility] #[id number], [address] [place], [place] [id number], [phone] acetaminophen-oxycodo ne (acetaminophen-oxycod one 325 mg-5 mg Tab) 1 Tablets By Mouth every 6 hours as needed for pain for 3 Days. Refills: 0. Medications to Continue Taking That Have Changed [id number], [address] [place], [place] [id number], [phone] START: doxycycline (doxycycline hyclate 100 mg Cap) [...] Refills: 4. Misc Prescription (Freestyle Sage 2 Freeland) Use daily with sensor. Refills: 0. Misc Prescription (Freestyle Sage 2 Sensors) Apply one q 14 days. Refills: 3. Misc Prescription (Glucometer test strips) Test TID DX E11.40 on insulin. Refills: 11. Misc Prescription (Glucometer) Dispense 1 Glucometer. Refills: 0. Misc Prescription (Insulin Pen [place] 31g x 8 mm) Use up to [...] INFORMATION: Inst (more content not included)... Normal [facility] ED Note-Physicianon 06-23-20 ED Note-Physician ED Note-Physician Basic Information Time Seen: Paddy Betancourt PA-C 06/23/2024 13:39 Chief Complaint pt has rib [...] for 3 day(s), 12 tab(s), Refill(s) 0, [facility] #[id number], 183, cm, 06/23/24 13:45:00 EST, Height/Length Dosing, 143, kg, 06/23/24 13:45:00 EST, Weight Dosing doxycycline, 100 mg = 1 cap(s), Oral, BID, # 20 cap(s), Refills(s) 0, Pharmacy: [facility] #[id number], 183, cm, 06/23/24 13:45:00 EST, Height/Length Dosing, 143, kg, 06/23/24 13:45:00 EST, Weight Dosing Disposition Plan Patient Discharge Condition Stable Discharge Disposition To home Discharge Prescription List Prescriptions acetaminophen-oxycodo ne 325 mg-5 mg Tab, 1 tab(s), Oral, q6hr, PRN doxycycline hyclate 100 mg Cap, 100 mg= 1 cap(s), Oral, BID Follow-up With When Contact Information Mounika Brooke In 3 days 06/26/2024 [facility] [address] [place] [address]- Business (1) Additional Instructions: Call for diagnosis based follow up Patient Education Community-Acquired Pneumonia, Adult, Sgqi-mm-Vxtb Rib Contusion Attestation Patient seen and evaluated by the physician public services assistant. Attending physician was present in the emergency department and supervised care. This visit was performed by both the physician and an APC. I performed all aspects of the MDM as documented. This report was transcribed using voice recognition software. Every effort was made to ensure accuracy, however, inadvertently computerized realtime court reporter mistakes may be present. Appropriate healthcare PPE was used in evaluating this patient. The patient was placed in a mask. The healthcare provider was wearing mask, gloves, and utilizing proper hand hygiene. All equipment was properly cleansed. I performed a substantive part of the MDM during (more content not included)... Normal [facility] Comment on above: Result Comment: Elec tronically Signed By: Paddy Betancourt PA-C\.br\Date and Time Signed: 06/23/24 14:07 EST\.br\Electronically Co-Signed By: Alejandro Silva M.D.\.br\Date and Time Co-Signed: 06/23/24 14:26 EST ED Patient Summaryon 024 ED Patient Summary ED Patient Summary [address] [address] Patient Discharge Instructions Person Information Name: NICOLE LORA Age: 64 Years Arrival Date: 06/23/2024 13:36:38 Discharge Diagnosis: Contusion of rib on left side; Pneumonia Primary Care Physician: Mounika Brooke MD Provider Information Primary Provider: Alejandro Silva M.D. Advanced Hard Tile Setter Apprentice:None The exam and treatment you received in the Emergency Department were for an urgent problem and are not intended as complete care. It is important that you follow up with a doctor, nurse practitioner, or physician???s public services assistant for ongoing care. If your symptoms [...] Address: When: M[place] [place] [address] [employer] (1) In 3 days 06/26/2024 Comments: Call Dr for diagnosis based follow up In the event that this physician does not participate in your insurance network, please consult with your insurance company to find a nearby participating provider. Patient Education Materials: Community-Acquired Pneumonia, Adult, Zvuf-rx-Vcln; Rib Contusion A MESSAGE TO ALL PATIENTS REGARDING OPIOIDS PRESCRIPTION OPIOIDS: WHAT YOU NEED TO KNOW Prescription opioids can be used to help relieve wvwdmaxt-mi-btfqqk pain and are often prescribed following a [...] ??? If (more content not included)... Normal [facility] HEMOGLOBIN A1con 06-22-2024 HbA1c (Bld) [Mass fraction] % High <5.7 [facility] Comment on above: Order Comment: FASTI NG:UNKNOWN [...] children. Performed By: #### 4 96 #### [facility] [address], [address] [place], [place] [id number] Ophthalmic Surgical Assistant: Anson Henley MD HbA1c (Bld) [Mass fraction]o n 06-22-2024 Interpretation and review of laboratory results Abnormal [facility] FASTING:UNKNOWN FASTING: UNKNOWN Scandid Organization Information Site ID: QPT Name: [facility] Address: [address] [place] [address], [address] [place] [address] Director: Anson Henley MD [facility] hospital Laboratory - Hematology and Cell countson 06-22-2024 HbA1c (Bld) [Mass fraction] [facility] Comment on above: For someone without known [...] mGy = na DAP = na Normal [facility] Left eye Ophthalmologic jemma tmenton 05-22-2024 [facility] Radiology Study observation (narrative) [facility] Optical coherence tomography study reporton 05-22-2024 [facility] Right Eye Quality was good. Left Eye Quality was good. Scan locations included subfoveal, juxtafoveal, extrafoveal. Progression has been stable. Findings include abnormal foveal contour, cystoid macular edema. Notes Neovascularization of the disc (NVD) OS [facility] Radiology Study observation (narrative) [facility] Left eye Ophthalmologic jemma tmenton 04-23-2024 [facility] Radiology Study observation (narrative) [facility] Optical coherence tomography study reporton 04-15-2024 Right Eye Quality was good. Scan locations included subfoveal, juxtafoveal, extrafoveal. Progression has no prior data. Findings include abnormal foveal contour. Left Eye Quality was good. Scan locations included subfoveal, juxtafoveal, extrafoveal. Progression has no prior data. Findings include abnormal foveal contour, cystoid macular edema. Notes Pdr os Mod bgdr od [facility] hospital Radiology Study observation (narrative) [facility] BMPon 03-11-2024 Anion gap [Moles/Vol] 13 mmol/L Normal 6-16 [facility] Comment on above: Performed By: #### 2 [id number] #### [facility] [address] [place] [address] Calcium [Mass/Vol] 8.6 mg/dL Low 8.9-11.1 [facility] Comment on above: Performed By: #### 2 [id number] #### [facility] [address] [place] [address] Chloride [Moles/Vol] 100 mmol/L Low 101-111 [facility] Comment on above: Performed By: #### 2 [id number] #### [facility] [address] [place] [address] CO2 [Moles/Vol] 26 mmol/L Normal 21-31 [facility] Comment on above: Performed By: #### 2 [id number] #### [facility] [address] [place] [address] Creatinine [Mass/Vol] 1.5 mg/dL High 0.5-1.3 [facility] Comment on above: Performed By: #### 2 [id number] #### [facility] [address] [place] [address] Glucose [Mass/Vol] 330 mg/dL High 55-199 [facility] Comment on above: Performed By: #### 2 [id number] #### [facility] [address] [place] [address] Potassium [Moles/Vol] 4.8 mmol/L Normal 3.5-5.3 [facility] Comment on above: Performed By: #### 2 [id number] #### [facility] [address] [place] [address] Sodium [Moles/Vol] 134 mmol/L Low 135-145 [facility] Comment on above: Performed By: #### 2 [id number] #### [facility] [address] [place] [address] Urea nitrogen [Mass/Vol] 29 mg/dL High 5-21 [facility] Comment on above: Performed By: #### 2 [id number] #### [facility] [address] [place] [address] Urea nitrogen/Creatinine [Mass ratio] 19 No Units Normal 10-20 [facility] Comment on above: Performed By: #### 2 [id number] #### [facility] [address] [place] [address] CHEMISTRYOrdered By: SYSTEM SYSTEM on 03-11-2024 Anion [...] 03-11-2024 eGFR 51 mL/min/1.73 m2 Low >=59 [facility] Comment on above: Order Comment: Order added by Discern Expert. Performed By: #### 1 [id number] #### [facility] [address] [place] [address] Ambulatory Visit Summaryon 0 02-28-2024 Ambulatory Visit Summary Normal [facility] Patient Educationon 02-28-20 Patient Education Normal [facility] Urology Office/Clinic Noteon 02-28-2024 Urology Office/Clinic Note Normal [facility] Comment on above: Result Comment: Elec tronically Signed By: Taz THOMAS MD\.br\Date and Time Signed: 02/28/24 08:10 EDT\.br\Electronically Co-Signed By: Basia Claire.br\Date and Time Co-Signed: 02/28/24 08:05 EDT Ambulatory Visit Summaryon 0 02-15-2024 Ambulatory Visit Summary Normal [facility] Patient Educationon 02-11-20 Patient Education Normal [facility] Urology Office/Clinic Noteon 02-11-2024 Urology Office/Clinic Note Normal [facility] Comment on above: Result Comment: Elec tronically Signed By: BRYAN Bahena APRN, Gisselle Glasgow\.br\Date and Time Signed: 02/11/24 23:10 EDT Ambulatory Visit Summaryon 0 02-09-2024 Ambulatory Visit Summary Normal [address], [address] [place] [address]- \.br\ Monday 10:45 AM EDT \.br\ With: Juany GALDAMEZ, Sukh R\.br\ Where: [facility]\.br\ Medications\.br\ What How Much When Why Instructions\.br\ Unchanged acetaminophen-hyd rocodone ([place] 325 mg-5 mg oral tablet) See instructions [...] day\.br\ Unchanged Misc Prescription (Freestyle Sage 2 Freeland) See instructions Use daily with sensor \.br\ Unchanged Misc Prescription (Freestyle Sage 2 Sensors) See instructions Apply one q 14 days \.br\ Unchanged Misc Prescription (Glucometer test strips) See instructions Test TID DX E11.40 on insulin \.br\ Unchanged Misc Prescription (Glucometer) See instructions Diabetes mellitus with neuropathy Dispense 1 Glucometer \.br\ Unchanged Misc Prescription (Insulin Pen Washburn 31g x 8 mm) See instructions Use [...] for choosing us for your care.\.br\ \.br\ [facility] Consent for Procedure/Surger yon 02-05-2024 Consent for Procedure/Surgery [id number]#1 .00TIFF Normal [facility] Consent for Treatmenton 01-19 Consent for Treatment [id number]#1 .00TIFF Normal [facility] Inpatient Patient Summaryon 02-05-2024 Inpatient Patient Summary Normal [facility] IntraOperative Documentson 0 02-05-2024 IntraOperative Documents [id number]#1 .00TIFF [facility] Main OR Intraoperative Recor don 02-05-2024 Main OR Intraoperative Record Normal [facility] Main OR Preoperative Recordo n 02-05-2024 Main OR Preoperative Record Normal [facility] Operative Reporton Operative Report Normal [facility] Comment on above: Result Comment: Elec tronically Signed By: MARTHA LYMAN, Taz Gironbr\Date and Time Signed: 02/05/24 13:27 EDT Outpatient Surgery Discharge Instructionon 02-05-2024 Outpatient Surgery Discharge Instruction [id number]#1 .00TIFF [facility] Outpatient Surgery Discharge Instruction [facility] Patient Educationon 02-05-20 Patient Education [facility] Insurance Correspondenceon 0 02-01-2024 Insurance Correspondence [id number]# 1.00TIFF [facility] Multi-Wound Charton 02-01-20 Multi-Wound Chart [id number] 6 [id number]# 1.00TIFF [facility] Nursing Note - Woundon 01-31 Nursing Note - Wound 159.140.124. 06 [id number]# 1.00TIFF [facility] Consent for Treatmenton 01-19 Consent for Treatment [id number]#1 .00TIFF [facility] Nursing Assessment - Woundon 01-31-2024 Nursing Assessment - Wound [id number]. [id number]# 1.00TIFF [facility] Physician Orderon 01-31-2024 Physician Order [id number] 6 [id number]# 1.00TIFF [facility] Prescriptions/Work Noteson 0 01-31-2024 Prescriptions/Work Notes [id number]# 1.00TIFF [facility] Procedure - Woundon 01-31-20 Procedure - Wound [id number] 6 [id number]# 1.00TIFF [facility] Progress Note - Woundon 01-19 Progress Note - Wound [id number]# 1.00TIFF [facility] Insurance Correspondenceon 0 01-26-2024 Insurance Correspondence [id number]#1 .00TIFF [facility] Nursing Note - Woundon 01-23 Nursing Note - Wound [id number] 06 [id number]# 1.00TIFF [facility] Physician Orderon 01-24-2024 Physician Order [id number] 6 [id number]# 1.00TIFF [facility] Procedure - Woundon 01-24-20 Procedure - Wound [id number] 6 [id number]# 1.00TIFF [facility] Progress Note - Woundon Progress Note - Wound [id number]# 1.00TIFF [facility] Consent for Procedure/Surger yon 01-23-2024 Consent for Procedure/Surgery [id number]# 1.00TIFF [facility] Consent for Procedure/Surgery [id number]# 1.00TIFF [facility] Consent for Treatmenton Consent for Treatment [id number]#1 .00TIFF [facility] Multi-Wound Charton 01-23-20 Multi-Wound Chart [id number] 6 [id number]# 1.00TIFF [facility] Nursing Assessment - Woundon 01-23-2024 Nursing Assessment - Wound [id number]# 1.00TIFF [facility] ED Note-Physicianon 01-16-20 ED Note-Physician [facility] Comment on above: Result Comment: Elec tronically Signed By: Kaley Phan PA-C\.br\Date and Time Signed: 01/15/24 17:05 EDT\.br\Electronically Co-Signed By: Nicole Myers DO\.br\Date and Time Co-Signed: 01/16/24 09:03 EDT Consent for Treatmenton 12-20 Consent for Treatment [id number]#1 .00TIFF [facility] Discharge Instructionson Discharge Instructions [id number]#1 .00TIFF [facility] ED Clinical Summaryon 2023 ED Clinical Summary [facility] ED Patient Education Noteon 01-15-2024 ED Patient Education Note [facility] ED Patient Summaryon 024 ED Patient Summary [facility] Ambulatory Visit Summaryon 0 01-12-2024 Ambulatory Visit Summary [facility] Consent for Procedure/Surger yon 01-02-2024 Consent for Procedure/Surgery [id number]# 1.00TIFF [facility] Consent for Treatmenton 12-19 Consent for Treatment [id number]#1 .00TIFF [facility] Multi-Wound Charton 01-02-20 Multi-Wound Chart 159.140.124. 5 [id number]# 1.00TIFF [facility] Nursing Assessment - Woundon 01-02-2024 Nursing Assessment - Wound 159.140.124. [id number]# 1.00TIFF [facility] Nursing Note - Woundon 01-01 Nursing Note - Wound 159.140.124. 05 [id number]# 1.00TIFF [facility] Physician Orderon 01-02-2024 Physician Order 159.140.124. 5 [id number]# 1.00TIFF [facility] Procedure - Woundon 01-02-20 Procedure - Wound 159.140.124. 5 [id number]# 1.00TIFF [facility] Progress Note - Woundon 12-19 Progress Note - Wound 159.140.124. [id number]# 1.00TIFF [facility] Consent for Procedure/Surger yon 12-26-2023 Consent for Procedure/Surgery [id number]#1 .00TIFF [facility] Consent for Procedure/Surgery [id number]#1 .00TIFF [facility] Consent for Treatmenton Consent for Treatment [id number]#1 .00TIFF [facility] Multi-Wound Charton 12-26-19 Multi-Wound Chart [id number] 5 [id number]# 1.00TIFF [facility] Nursing Assessment - Woundon 12-26-2023 Nursing Assessment - Wound 159.140.124. [id number]# 1.00TIFF [facility] Nursing Note - Woundon 12-25 Nursing Note - Wound 159.140.124. 05 [id number]# 1.00TIFF [facility] Physician Orderon 12-26-2023 Physician Order [id number] 5 [id number]# 1.00TIFF [facility] Procedure - Woundon 12-26-19 Procedure - Wound 159.140.124. 5 [id number]# 1.00TIFF [facility] Progress Note - Woundon Progress Note - Wound 159.140.124. [id number]# 1.00TIFF [facility] Nursing Note - Woundon 12-19 Nursing Note - Wound 159.140.124. 05 [id number]# 1.00TIFF [facility] Physician Orderon 12-20-2023 Physician Order 159.140.124. 5 [id number]# 1.00TIFF [facility] Procedure - Woundon 12-20-19 Procedure - Wound 159.140.124. 5 [id number]# 1.00TIFF [facility] Progress Note - Woundon Progress Note - Wound 159.140.124. [id number]# 1.00TIFF [facility] Consent for Procedure/Surger yon 12-19-2023 Consent for Procedure/Surgery [id number]# 1.00TIFF [facility] Consent for Treatmenton 11-21 Consent for Treatment [id number]#1 .00TIFF [facility] Multi-Wound Charton 12-19-19 Multi-Wound Chart [id number] 4 [id number]# 1.00TIFF [facility] Nursing Assessment - Woundon 12-19-2023 Nursing Assessment - Wound 159.140.124.25 [id number]# 1.00TIFF [facility] Ambulatory Visit Summaryon 0 12-15-2023 Ambulatory Visit Summary [facility] Consent for Procedure/Surger yon 12-12-2023 Consent for Procedure/Surgery [id number]# 1.00TIFF [facility] Consent for Treatmenton 11-20 Consent for Treatment [id number]#1 .00TIFF [facility] Multi-Wound Charton 12-12-19 Multi-Wound Chart [id number] 4 [id number]# 1.00TIFF [facility] Nursing Assessment - Woundon 12-12-2023 Nursing Assessment - Wound [id number]# 1.00TIFF [facility] Nursing Note - Woundon 12-11 Nursing Note - Wound [id number] 04 [id number]# 1.00TIFF [facility] Physician Orderon 12-12-2023 Physician Order [id number] 4 [id number]# 1.00TIFF [facility] Procedure - Woundon 12-12-19 Procedure - Wound [id number] 4 [id number]# 1.00TIFF [facility] Progress Note - Woundon 11-20 Progress Note - Wound [id number]# 1.00TIFF [facility] Consenton 11-22-2023 Consent [id number] 0 [id number]#1. 00TIFF [facility] Consent for Procedure/Surger yon 11-20-2023 Consent for Procedure/Surgery [id number]#1 .00TIFF [facility] Consent for Treatmenton 04-0 Consent for Treatment [id number]#1 .00TIFF Normal [facility] IntraOperative Documentson 0 11-20-2023 IntraOperative Documents [id number]#1 .00TIFF Normal [facility] IntraOperative Documents [id number]#1 .00TIFF Normal [facility] Main OR Intraoperative Recor don 11-20-2023 Main OR Intraoperative Record Normal [facility] Main OR Preoperative Recordo n 11-20-2023 Main OR Preoperative Record Normal [facility] Operative Reporton Operative Report Normal [facility] Comment on above: Result Comment: Elec tronically Signed By: Taz THOMAS MD\.br\Date and Time Signed: 11/20/23 13:26 EDT Progress Note-Physicianon Progress Note-Physician Normal [facility] Comment on above: Result Comment: Elec tronically Signed By: Taz THOMAS MD\.br\Date and Time Signed: 11/20/23 13:30 EDT C Blood Charcoalon Blood Culture Charcoal Normal [facility] Comment on above: Performed By: #### 1 [id number] ####[facility] [address] [place] [address] Blood Culture Charcoal Normal [facility] Comment on above: Performed By: #### 1 [id number] ####[facility] [address] [place] [address] Basophils Auto (Bld) [#/Vol] Ordered By: Manish Fu on 11-17-2023 Basophils (Bld) [#/Vol] 0.0 10*3/uL 0.0-0.2 [facility] Basophils/100 WBC Auto (Bld) Ordered By: Manish Fu on 11-17-2023 Basophils/100 WBC (Bld) 0.7 % . [facility] Calcium [Mass/volume] in Ser um or PlasmaOrdered By: Manish Fu on 11-17-2023 Calcium [Mass/Vol] 9.3 mg/dL 8.6-10.3 [facility] Carbon dioxide, total [Moles /volume] in Serum or PlasmaOrdered By: Manish Fu on 11-17-2023 CO2 [Moles/Vol] 41.4 mmol/L 21.0-31.0 [facility] Chloride [Moles/volume] in S raymond or PlasmaOrdered By: Manish Fu on 11-17-2023 Chloride [Moles/Vol] 102 mmol/L 98-107 [facility] Creatinine [Mass/volume] in Serum or PlasmaOrdered By: Manish Fu on 11-17-2023 Creatinine [Mass/Vol] 1.47 mg/dL 0.70-1.30 [facility] Eosinophils Auto (Bld) [#/Vo l]Ordered By: Manish Fu on 11-17-2023 Eosinophils (Bld) [#/Vol] 0.3 10*3/uL 0.0-0.45 [facility] Eosinophils/100 WBC Auto (Bl d)Ordered By: Manish Fu on 11-17-2023 Eosinophils/100 WBC (Bld) 5.6 % . [facility] Erythrocyte distribution wid th Auto (RBC) [Ratio]Ordered By: Manish Fu on 11-17-2023 Erythrocyte distribution width (RBC) [Ratio] 18.4 % 12.0-14.8 [facility] Glucose Glucometer (BldC) [M ass/Vol]Ordered By: Manish Fu on 11-17-2023 Glucose [Mass/Vol] 165 mg/dL [facility] Comment on above: Random Glucose Refer ence Range is dependent on time and content of last meal. Glucose of more than 200 mg/dL in a nonstressed, ambulatory subject supports the diagnosis of Diabetes Mellitus. Glucose [Mass/volume] in Ser um or PlasmaOrdered By: Manish Fu on 11-17-2023 Glucose [Mass/Vol] 114 mg/dL 70-100 [facility] Comment on above: ADA recommended refe rence rangeRandom Glucose Reference Range is dependent on time and content of last meal. Glucose of more than 200 mg/dL in a nonstressed, ambulatory subject supports the diagnosis of Diabetes Mellitus. Hematocrit Auto (Bld) [Volum e fraction]Ordered By: Manish Fu on 11-17-2023 Hematocrit (Bld) [Volume fraction] 39.5 % 38.8-50.0 [facility] Hemoglobin [Mass/volume] in BloodOrdered By: Manish Fu on 11-17-2023 Hemoglobin (Bld) [Mass/Vol] 12.3 g/dL 13.0-17.0 [facility] Leukocytes [#/volume] correc maria guadalupe for nucleated erythrocytes in Blood by Automated counOrdered By: Manish Fu on 11-17-2023 WBC corrected for nucl RBC Auto (Bld) [#/Vol] 6.0 10*3/uL 4.1-10.5 [facility] Lymphocytes Auto (Bld) [#/Vo l]Ordered By: Manish Fu on 11-17-2023 Lymphocytes (Bld) [#/Vol] 1.3 10*3/uL 1.00-4.8 [facility] Lymphocytes/100 WBC Auto (Bl d)Ordered By: Manish Fu on 11-17-2023 Lymphocytes/100 WBC (Bld) 21.7 % . [facility] MCH Auto (RBC) [Entitic mass ]Ordered By: Manish Fu on 11-17-2023 MCH (RBC) [Entitic mass] 26.0 pg 27.5-35.2 [facility] MCHC Auto (RBC) [Mass/Vol]Or dered By: Manish Fu on 11-17-2023 MCHC (RBC) [Mass/Vol] 31.2 g/dL 32.5-35.6 [facility] MCV Auto (RBC) [Entitic vol] Ordered By: Manish Fu on 11-17-2023 MCV (RBC) [Entitic vol] 83.4 fL 83.5-101 [facility] Monocytes Auto (Bld) [#/Vol] Ordered By: Manish Fu on 11-17-2023 Monocytes (Bld) [#/Vol] 0.6 10*3/uL 0.0-0.8 [facility] Monocytes/100 WBC Auto (Bld) Ordered By: Manish Fu on 11-17-2023 Monocytes/100 WBC (Bld) 10.4 % . [facility] Neutrophils Auto (Bld) [#/Vo l]Ordered By: Manish Fu on 11-17-2023 Neutrophils (Bld) [#/Vol] 3.7 10*3/uL 1.8-7.7 [facility] Neutrophils/100 WBC Auto (Bl d)Ordered By: Manish Fu on 11-17-2023 Neutrophils/100 WBC (Bld) 61.6 % . [facility] No Panel InformationOrdered By: Manish Fu on 11-17-2023 Estimated GFR (CKD-EPI) 52.934 mL/Min [facility] Creatinine Clearance (Chem 70.70 [facility] Nucleated erythrocytes [Pres ence] in Blood by Automated countOrdered By: Manish Fu on 11-17-2023 Nucleated RBC Auto Ql (Bld) 0.1 /100{WBC} 0-0.5 [facility] Platelet mean volume Auto (B ld) [Entitic vol]Ordered By: Manish Fu on 11-17-2023 Platelet mean volume (Bld) [Entitic vol] 6.8 fL 6.6-10.1 [facility] Platelets Auto (Bld) [#/Vol] Ordered By: Manish Fu on 11-17-2023 Platelets (Bld) [#/Vol] 248 10*3/uL 150-450 [facility] Potassium [Moles/volume] in Serum or PlasmaOrdered By: Manish Fu on 11-17-2023 Potassium [Moles/Vol] 4.5 mmol/L 3.5-5.1 [facility] RBC Auto (Bld) [#/Vol]Ordere d By: Manish Fu on 11-17-2023 RBC (Bld) [#/Vol] 4.73 10*6/uL 3.90-5.60 [facility] Serum or plasma anion gap de terminationOrdered By: Manish Fu on 11-17-2023 Anion gap [Moles/Vol] 10.1 mmol/L 6.0-15.0 [facility] Sodium [Moles/volume] in Ser um or PlasmaOrdered By: Manish Fu on 11-17-2023 Sodium [Moles/Vol] 149 mmol/L 136-145 [facility] Urea nitrogen [Mass/volume] in Serum or PlasmaOrdered By: Manish Fu on 11-17-2023 Urea nitrogen [Mass/Vol] 44 mg/dL 7-25 [facility] WBC Auto (Bld) [#/Vol]Ordere d By: Manish Fu on 11-17-2023 WBC (Bld) [#/Vol] 6.0 10*3/uL 4.1-10.5 [facility] Admission Noteon 11-16-2023 Admission Note [id number] .00TIFF Normal [facility] No Panel InformationOrdered By: Manish Fu on 11-16-2023 Bedside Glucose Comment Glu2: cleaned meter [facility] Admission Noteon 11-15-2023 Admission Note [id number] .[id number] Normal [facility] Laboratory - Chemistry and C hemistry - challengeOrdered By: Manish Fu on 11-15-2023 CO2 [Moles/Vol] 34.8 mmol/L 23.0-27.0 [facility] HCO3 (Bld) [Moles/Vol] 32.6 mmol/L 23.0-29.0 [facility] Magnesium [Mass/volume] in S raymond or PlasmaOrdered By: Manish Fu on 11-15-2023 Magnesium [Mass/Vol] 2.3 mg/dL 1.9-2.7 [facility] No Panel InformationOrdered By: Manish Fu on 11-15-2023 Arterial Blood Base Excess 3.8 mmol/L -3.0-3.0 [facility] Arterial Blood Oxygen Content 8.0 mmol/L 6.6-9.7 [facility] Arterial Blood Oxygen Saturation 94.1 % 95.0-100.0 [facility] Arterial Blood Partial Pressure CO2 70.1 mm[Hg] 35.0-45.0 [facility] Arterial Blood Partial Pressure O2 73.0 mm[Hg] 80.0-100.0 [facility] Arterial Blood pH 7.29 7.35-7.45 [facility] Blood Gas Critical Value See comment [facility] Comment on above: Critical Value dickerson d on: 11/15/2023 at 12:53 Blood Gas Sample Site Right radial [facility] FiO2 44 % [facility] Oxygen Delivery Device Nasal cannula [facility] Alanine aminotransferase [En zymatic activity/volume] in Serum or PlasmaOrdered By: Manish Fu on 11-14-2023 ALT [Catalytic activity/Vol] 14 U/L 7-52 [facility] Albumin [Mass/volume] in Ser um or Plasma by Bromocresol green (BCG) dye binding methoOrdered By: Manish Fu on 11-14-2023 Albumin BCG dye [Mass/Vol] 3.2 g/dL 3.5-5.7 [facility] Alkaline phosphatase [Enzyma tic activity/volume] in Serum or PlasmaOrdered By: Manish Fu on 11-14-2023 ALP [Catalytic activity/Vol] 92 U/L 34-104 [facility] Aspartate aminotransferase [ Enzymatic activity/volume] in Serum or PlasmaOrdered By: Manish Fu on 11-14-2023 AST [Catalytic activity/Vol] 10 U/L 13-39 [facility] Bilirubin.total [Mass/volume ] in Serum or PlasmaOrdered By: Manish Fu on 11-14-2023 Bilirubin [Mass/Vol] 0.6 mg/dL 0.3-1.0 [facility] Globulin Calc (S) [Mass/Vol] Ordered By: Manish Fu on 11-14-2023 Globulin (S) [Mass/Vol] 2.8 g/dL [facility] Protein [Mass/volume] in Ser um or PlasmaOrdered By: Manish Fu on 11-14-2023 Protein [Mass/Vol] 6.0 g/dL 6.4-8.9 [facility] Serum or plasma albumin/glob ulin mass ratioOrdered By: Manish Fu on 11-14-2023 Albumin/Globulin [Mass ratio] 1.1 {ratio} [facility] C Urineon 11-13-2023 Bacteria identified Cx Nom (U) Normal [facility] Comment on above: Performed By: #### 2 [id number], [id number] ####[facility] [address] [place] [address] Automated erythrocytes count in urine sediment (number/area)Ordered By: Tera Nevarez on 11-11-2023 RBC Auto (Urine sed) [#/Area] Innumerable [HPF] 0-4 [facility] Automated leukocytes count i n urine sediment (number/area)Ordered By: Tera Nevarez on 11-11-2023 WBC Auto (Urine sed) [#/Area] 50-100 [HPF] 0-4 [facility] Automated urine hyaline cast s count (number/volume)Ordered By: Tera Nevarez on 11-11-2023 Hyaline casts Auto (U) [#/Vol] 0-8 [LPF] 0-1 [facility] BMPon 11-11-2023 Anion gap [Moles/Vol] 18 mmol/L High 6-16 [facility] Comment on above: Performed By: #### 2 688699, 9635532, 84506777, 74418509, 62900252, 64229317, 8346383 ####[facility] [address] [place] [address] Calcium [Mass/Vol] 8.8 mg/dL Low 8.9-11.1 [facility] Comment on above: Performed By: #### 2 313440, 1160853, 26266906, 77500915, 59764724, 10314243, 5348249 ####[facility] [address] [place] [address] Chloride [Moles/Vol] 95 mmol/L Low 101-111 [facility] Comment on above: Performed By: #### 2 345601, 4454608, 63091434, 01118703, 23164215, 81666651, 5307779 ####[facility] [address] [place] [address] CO2 [Moles/Vol] 24 mmol/L Normal 21-31 [facility] Comment on above: Performed By: #### 2 460629, 0500642, 14003294, 83555666, 15097857, 81691808, 2320289 ####[facility] [address] [place] [address] Creatinine [Mass/Vol] 4.9 mg/dL High 0.5-1.3 [facility] Comment on above: Performed By: #### 2 180147, 3372254, 41372815, 13486828, 13274757, 02218635, 6743232 ####[facility] [address] [place] [address] Glucose [Mass/Vol] 311 mg/dL High 55-199 [facility] Comment on above: Performed By: #### 2 524358, 6695443, 43458430, 71445399, 18605670, 04145104, 5863430 ####[facility] [address] [place] [address] Potassium [Moles/Vol] 5.3 mmol/L Normal 3.5-5.3 [facility] Comment on above: Performed By: #### 2 468104, 1219838, 90367969, 80197542, 44181654, 97449700, 6588049 ####[facility] [address] [place] [address] Sodium [Moles/Vol] 132 mmol/L Low 135-145 [facility] Comment on above: Performed By: #### 2 081736, 6374703, 96925154, 23218464, 80266642, 32676604, 9788362 ####[facility] [address] [place] [address] Urea nitrogen [Mass/Vol] 76 mg/dL High 5-21 [facility] Comment on above: Performed By: #### 2 879692, 8021935, 76216373, 74640094, 39827669, 81267235, 2554728 ####[facility] [address] [place] [address] Urea nitrogen/Creatinine [Mass ratio] 16 No Units Normal 10-20 [facility] Comment on above: Performed By: #### 2 544467, 8182618, 35348398, 34568366, 68181624, 96319387, 3158171 ####[address] [address] BNPon 11-11-2023 Natriuretic peptide B (Bld) [Mass/Vol] 99 pg/mL High 5-80 [facility] Comment on above: Performed By: #### 2 765313, 9736976, 68713138, 01479431, 42318819, 39870144, 6931001 ####[facility] [address] [place] [address] Bilirubin Test strip Ql (U)O rdered By: Tera Nevarez on 11-11-2023 Bilirubin Ql (U) Negative Negative [facility] Blood Gas Art, with Lytes, G hugh, [place] 11-11-2023 a/A Ratio Art 26.50 % Normal >=0.80 [facility] Comment on above: Performed By: #### 4 [id number] ####[facility] [address] [place] [address] AaDO2 Art 157.8 mmHg High 5.0-15.0 [facility] Comment on above: Performed By: #### 4 [id number] ####[facility] [address] [place] [address] Allens Test Positive Normal [facility] Comment on above: Performed By: #### 4 [id number] ####[facility] [address] [place] [address] Base Excess Arterial -2.4 mmol/L Low >=2.8 [facility] Comment on above: Performed By: #### 4 [id number] ####[facility] [address] [place] [address] cCa2+ Art 4.70 mg/dL Normal 4.40-5.30 [facility] Comment on above: Performed By: #### 4 10318914 ####[address] [place] [address] cCl- Art 97.0 mmol/L Low 101.0-111.0 [facility] Comment on above: Performed By: #### 4 03732150 ####[address] [address] cGlu Art 311 mg/dL High 55-99 [facility] Comment on above: Performed By: #### 4 63662822 ####[address] [place] [address] cK+ Art 5.5 mmol/L High 3.5-5.3 [facility] Comment on above: Performed By: #### 4 10623266 ####[address] [place] [address] cLac Art 1.0 mmol/L Normal .5-2.2 [facility] Comment on above: Performed By: #### 4 51477703 ####[address] [place] [address] roofer applicator+ Art 135.0 mmol/L Normal 135.0-145.0 [facility] Comment on above: Performed By: #### 4 45193580 ####[facility] [address] [place] [address] Device Cannula Normal [facility] Comment on above: Performed By: #### 4 14868082 ####[facility] [address] [facility] [place] [address] Drawn by korina clement Invalid Interpretation Code [facility] Comment on above: Performed By: #### 4 [id number] ####[facility] [address] [facility] [place] [address] FCOHb Art 1.9 % Normal 1.5-4.9 [facility] Comment on above: Result Comment: Refe rence rangeNonsmoker <1.5%Smoker <5.0%Heavy Smoker <9.0% Performed By: #### 4 88638364 ####[facility] [address] [place] [address] FIO2 BG 40 Invalid Interpretation Code [facility] Comment on above: Performed By: #### 4 [id number] ####[facility] [address] [place] [address] FMetHb Art 0.1 % Normal 0.0-1.9 [facility] Comment on above: Performed By: #### 4 17462716 ####[facility] [address] [facility] [place] [address] FO2Hb Art 86.9 % Low 93.0-100.0 [facility] Comment on above: Performed By: #### 4 48621540 ####[facility] [address] [place] [address] HCO3 (Bld) [Moles/Vol] 22.2 mmol/L Normal 22.0-26.0 [facility] Comment on above: Performed By: #### 4 33340648 ####[facility] [address] [facility] [place] [address] Hemoglobin (Bld) [Mass/Vol] 12.8 g/dL Normal 12.0-17.0 [facility] Comment on above: Performed By: #### 4 04668919 ####[facility] [address] [place] [address] Oxygen saturation in Blood 88.7 % Low 95.0-100.0 [facility] Comment on above: Performed By: #### 4 72466876 ####[address] [place] [address] P CO2 Arterial 58.0 mmHg High 35.0-45.0 [facility] Comment on above: Performed By: #### 4 05932573 ####[address] [address] P O2 Arterial 56.8 mmHg Low 80.0-100.0 [facility] Comment on above: Performed By: #### 4 [id number] ####[address] [address] pH Arterial 7.255 Low 7.350-7.450 [facility] Comment on above: Performed By: #### 4 23682944 ####[address] [address] Sample Site R Radial Normal [facility] Comment on above: Performed By: #### 4 [id number] ####[address] [address] Sample Type Arterial Draw Normal [facility] Comment on above: Performed By: #### 4 50831754 ####[address] [address] CBC w/ Auto Diffon 4 Basophils/100 WBC (Bld) 0.5 % Normal 0.0-2.0 [facility] Comment on above: Performed By: #### 2 935577, 9891128, 56725568, 33462799, 47774017, 15823356, 0489407 ####[address] [address] Basophils/Leukocytes Auto (Bld) [Pure # fraction] 0.0 E9/L Normal 0.0-0.2 [facility] Comment on above: Performed By: #### 2 607694, 7950162, 04417263, 79297608, 37453046, 83642394, 4317486 ####[address] [place] [address] Eosinophils (Bld) [#/Vol] 0.2 E9/L Normal 0.0-0.5 [facility] Comment on above: Performed By: #### 2 282451, 4254519, 30250078, 24851861, 44851923, 78082252, 3683134 ####[address] [place] [address] Eosinophils/100 WBC (Bld) 1.9 % Normal 0.0-8.0 [facility] Comment on above: Performed By: #### 2 154570, 4298607, 71437302, 23879525, 72870327, 78136712, 6930852 ####[place] [address] Erythrocyte distribution width (RBC) [Ratio] 18.6 % High 10.9-14.2 [facility] Comment on above: Performed By: #### 2 233230, 2961081, 49291409, 89128091, 46057397, 77206240, 3390361 ####[place] [address] Hematocrit (Bld) [Volume fraction] 41.9 % Normal 37.7-49.0 [facility] Comment on above: Performed By: #### 2 991625, 7428256, 79989158, 16033275, 83457504, 11972088, 3179213 ####[place] [address] Hemoglobin (Bld) [Mass/Vol] 12.8 g/dL Low 13.5-17.5 [facility] Comment on above: Performed By: #### 2 717828, 2576103, 05531731, 78679474, 08958249, 73669697, 1459984 ####[place] [address] Lymphocytes (Bld) [#/Vol] 0.8 E9/L Low 1.0-4.0 [facility] Comment on above: Performed By: #### 2 513824, 4591192, 40161797, 55526491, 66831075, 43112244, 9332626 ####[facility] [address] [place] [address] Lymphocytes/100 WBC (Bld) 9.1 % Low 14.0-50.0 [facility] Comment on above: Performed By: #### 2 648119, 4998657, 08647599, 10487986, 75285590, 11711309, 1424251 ####[facility] [address] [place] [address] MCH (RBC) [Entitic mass] 26.4 pg Low 27.0-34.0 [facility] Comment on above: Performed By: #### 2 514982, 8436234, 58940853, 26209258, 75255753, 70105181, 3368030 ####[address] [address] MCHC (RBC) [Mass/Vol] 30.6 g/dL Low 31.4-36.0 [facility] Comment on above: Performed By: #### 2 982236, 6960330, 75842960, 43086520, 83936829, 06336950, 3618857 ####[address] [address] MCV (RBC) [Entitic vol] 86.3 fL Normal 80.0-100.0 [facility] Comment on above: Performed By: #### 2 722333, 4484219, 98819597, 71147213, 43811120, 40563490, 6064311 ####[address] [address] Monocytes (Bld) [#/Vol] 0.5 E9/L Normal 0.2-1.0 [facility] Comment on above: Performed By: #### 2 798452, 8741766, 49148429, 65933674, 36456891, 21159771, 7411368 ####[facility] [address] [place] [address] Neutrophils (Bld) [#/Vol] 7.0 E9/L Normal 2.0-7.5 [facility] Comment on above: Performed By: #### 2 779823, 2482581, 08543474, 74815681, 38840792, 00603936, 3664565 ####[address] [place] [address] Neutrophils/100 WBC (Bld) 82.2 % High 36.0-75.0 [facility] Comment on above: Performed By: #### 2 296147, 3185282, 51559862, 07415972, 74538442, 06103263, 1767455 ####[address] [address] Platelet 254.0 E9/L Normal 150.0-500.0 [facility] Comment on above: Performed By: #### 2 828084, 8224625, 12619667, 93939290, 99898210, 47962344, 1991776 ####[address] [address] Platelet mean volume (Bld) [Entitic vol] 6.9 fL Normal 6.4-10.8 [facility] Comment on above: Performed By: #### 2 283832, 8130810, 45889604, 68037317, 36372357, 05802420, 8408594 ####[address] [address] RBC (Bld) [#/Vol] 4.9 E12/L Normal 4.3-5.9 [facility] Comment on above: Performed By: #### 2 879625, 0319672, 91488119, 81224287, 29192538, 73412557, 9938914 ####[facility] [address] [place] [address] WBC corrected for nucl RBC Auto (Bld) [#/Vol] 8.5 E9/L Normal 4.0-11.0 [facility] Comment on above: Performed By: #### 2 129026, 6059125, 03393925, 65917152, 54265198, 12864125, 0649466 ####[facility] [address] [place] [address] CHEMISTRYOrdered By: SYSTEM SYSTEM on 11-11-2023 Troponin [...] High Sensitivity Troponin I Instructions For Use, [employer], March 2018) Troponin 12.60 pg/mL Low 15.90 - 38.40 pg/mL [facility] Comment on above: Interpretive Data: T he 95% CI (Confidence Interval) PPV (Positive Predictive Value) for myocardial infarction in females is 38 pg/mL, in males 51 pg/mL. The results should be used in conjunction with clinical conditions of myocardial infarction. (Access High Sensitivity Troponin I Instructions For Use, [employer], March 2018) Anion gap [Moles/Vol] 18 mmol/L [...] [facility] Comment on above: Interpretive Data: Mariia lemuel 95% CI (Confidence Interval) PPV (Positive Predictive Value) for myocardial infarction in females is 38 pg/mL, in males 51 pg/mL. The results should be used in conjunction with clinical conditions of myocardial infarction. (Access High Sensitivity Troponin I Instructions For Use, [employer], March 2018) Urea nitrogen [Mass/Vol] 76 mg/dL High 5 - 21 mg/dL [facility] Urea nitrogen/Creatinine [Mass ratio] 16 mg/mg Normal 10 - 20 [facility] CHEMISTRYOrdered By: Deacon Marcano on 11-11-2023 Natriuretic peptide B (Bld) [Mass/Vol] 99 pg/mL High 5 - 80 pg/mL [facility] COAGULATIONOrdered By: Catina Schmidt on 11-11-2023 aPTT Coag (PPP) [Time] 36.5 s Normal 25.1 - 36.5 second(s) [facility] Auto Coag Comment on above: Interpretive Data: P arameter 15 days - 4 weeks 1 - [...] the same coagulation reagent and instrumentation as [facility]. Currently there are no coagulation studies available worldwide for children to 14 days, and no normal ranges. Heparin therapeutic range (represented by Anti-Factor Xa activity of 0.2 - 0.4 U/mL) corresponds to PTT of 56.6 - 109.0 sec. INR Coag (PPP) [Relative time] 0.94 {INR} Invalid Interpretation Code [facility] Auto Coag Comment on above: Interpretive Data: I NR results are specifically intended to assess patients stabilized on long-term Anticoagulation therapy suggested INR s Less Intensive Anticoagulation 2.0 3.0 Conventional Range 3.0 4.5 PT Coag (PPP) [Time] 10.5 s Normal 9.4 - 1 2.5 second(s) [facility] Auto Coag Comment on above: Interpretive Data: [...] the same coagulation reagent and instrumentation as [facility]. Currently there are no coagulation studies available worldwide for children to 14 days, and no normal ranges. Casts typing in urine sedime nt by light microscopyOrdered By: Tera Nevarez on 11-11-2023 Casts LM Nom (Urine sed) None seen [LPF] None Seen [facility] Color Auto (U)Ordered By: Neptali Nevarez on 11-11-2023 Color (U) Blair Yellow [facility] Consent for Treatmenton 10-20 Consent for Treatment [id number] .00TIFF Normal [facility] Creatine kinase [Enzymatic a ctivity/volume] in Serum or PlasmaOrdered By: Tera Nevarez on 11-11-2023 CK [Catalytic activity/Vol] 125 U/L 30-223 [facility] Creatinine [Mass/volume] in UrineOrdered By: Tera Nevarez on 11-11-2023 Creatinine (U) [Mass/Vol] 266.0 mg/dL 14.0-26.0 [facility] ED Clinical Summaryon 2023 ED Clinical Summary Normal [facility] ED Note-Physicianon 11-11-19 ED Note-Physician Normal [facility] Comment on above: Result Comment: Elec tronically Signed By: Paddy Betancourt PA-C\.br\Date and Time Signed: 11/11/23 12:42 EDT\.br\Electronically Co-Signed By: Alejandro Silva M.D..br\Date and Time Co-Signed: 11/11/23 19:21 EDT ED Patient Education Noteon 11-11-2023 ED Patient Education Note Normal [facility] ED Patient Summaryon 024 ED Patient Summary Normal [facility] Eosinophils detection in uri ne sediment by Jean stainOrdered By: Tera Nevarez on 11-11-2023 Eosinophils Jean stain Ql (Urine sed) 1 % 0-1 [facility] FT Blood GasesOrdered By: St candice Hebert [...] 2.2 mmol/L [facility] Res p Auto SS roofer applicator+ Art 135.0 mmol/L Normal 135.0 - 145.0 [...] FIO2 BG 40 1 Invalid Interpretation Code [facility] Resp Auto SS FMetHb Art 0.1 % Normal 0.0 - 1.9 % [facility] Resp Auto SS FO2Hb Art 86.9 % Low 93.0 - 100.0 % [facility] Resp Auto SS HCO3 (Bld) [Moles/Vol] 22.2 mmol/L Normal 22.0 - 26.0 mmol/L [facility] Resp Auto SS Hemoglobin (Bld) [Mass/Vol] 12.8 g/dL Normal 12.0 - 17.0 gm/dL [facility] Resp Auto SS P CO2 Arterial 58.0 mm[Hg] High 35.0 - 45.0 mmHg [facility] Resp Auto SS P O2 Arterial 56.8 mm[Hg] Low 80.0 - 100.0 mmHg [facility] Resp Auto SS pH (Bld) 7.255 [pH] Low 7.350 - 7.450 [facility] Resp Auto SS Sample Site R Radial (11/11/23 9:17 AM) Normal [facility] Resp Auto SS Sample Type Arterial Draw (11/11/23 9:17 AM) Normal [facility] Resp Auto SS HEMATOLOGYOrdered By: SYSTEM SYSTEM [...] on 11-11-2023 Ketones (U) [Mass/Vol] Negative Negative [facility] Lactate [Moles/volume] in Se rum or PlasmaOrdered By: Tera Nevarez on 11-11-2023 Lactate [Moles/Vol] 0.8 mmol/L 0.5-2.2 [facility] Lactic Acidon 11-11-2023 Lactic Acid Lvl 1.5 mmol/L Normal 0.5-2.2 [facility] Comment on above: Performed By: #### 2 177488, 7859716, 29626804, 95069407, 80996057, 55312734, 6161847 ####[facility] [address] [place] [address] Monitor Recordon 11-11-2023 Monitor Record [id number]# 1.00TIFF Normal [facility] Monitor Record [id number]# 1.00TIFF Normal [facility] Natriuretic peptide B [Mass/ Vol]Ordered By: Tera Nevarez on 11-11-2023 Natriuretic peptide B (Bld) [Mass/Vol] 115.0 pg/mL 5-100 [facility] Nitrite Test strip Ql (U)Ord ered By: Tera Nevarez on 11-11-2023 Nitrite Ql (U) Negative Negative [facility] No Panel InformationOrdered By: Tera Nevarez on 11-11-2023 Blood Gas Liter Flow 5 L/min [facility] PT & PTTon 11-11-2023 aPTT Coag (PPP) [Time] 36.5 second(s) Normal 25.1-36.5 [facility] Comment on above: Result Comment: Para meter [...] the same coagulation reagent and instrumentation as [facility]. Currently there are no coagulation studies available worldwide for children to 14 days, and no normal ranges. Heparin therapeutic range (represented by Anti-Factor Xa activity of 0.2 - 0.4 U/mL) corresponds to PTT of 56.6 - 109.0 sec. Performed By: #### 2 495673, 0326615, 41876496, 71378889, 42755141, 81036414, 8388583 ####[facility] [address] [place] [address] INR Coag (PPP) [Relative time] 0.94 {INR} Invalid Interpretation Code [facility] Comment on above: Result Comment: INR results are specifically intended to assess patients stabilized on long-term Anticoagulation therapy suggested INR?s ?Less Intensive Anticoagulation? 2.0 ? 3.0Conventional Range 3.0 ? 4.5 Performed By: #### 2 066546, 9629574, 10467637, 44639421, 59225706, 48856178, 5356820 ####[facility] [address] [place] [address] PT Coag (PPP) [Time] 10.5 second(s) Normal 9.4-12.5 [facility] Comment on above: Result Comment: 15 d [...] the same coagulation reagent and instrumentation as [facility]. Currently there are no coagulation studies available worldwide for children to 14 days, and no normal ranges. Performed By: #### 2 637347, 9355110, 05610222, 99726521, 57724785, 34314905, 4117807 ####[facility] [address] [place] [address] Potassium [Moles/volume] in UrineOrdered By: Tera Nevarez on 11-11-2023 Potassium (U) [Moles/Vol] 29.7 mmol/L [facility] Comment on above: No reference range e stablished Pre-Arrival Noteon 4 Pre-Arrival Note Normal [facility] Protein Auto test strip (U) [Mass/Vol]Ordered By: Tera Nevarez on 11-11-2023 Protein (U) [Mass/Vol] 100 mg/dL Negative [facility] Protein [Mass/volume] in Uri neOrdered By: Tera Nevarez on 11-11-2023 Protein (U) [Mass/Vol] 105 mg/dL 0-9 [facility] Sodium [Moles/volume] in Uri neOrdered By: Tera Nevarez on 11-11-2023 Sodium (U) [Moles/Vol] 18 mmol/L [facility] Comment on above: No reference range e stablished Specific gravity Auto test s trip (U) [Rel density]Ordered By: Tera Nevarez on 11-11-2023 Specific gravity (U) [Rel density] 1.017 1.001-1.030 [facility] Squamous epithelial cells de tection in urine sediment by light microscopyOrdered By: Tera Nevarez on 11-11-2023 Epithelial cells.squamous LM Ql (Urine sed) 0-1 [HPF] 0-2 [facility] Transfer Documentson 024 Transfer Documents [id number]# 1.00TIFF Normal [facility] Troponin 0 Hr.on 11-11-2023 Troponin 12.40 pg/mL Low 15.90-38.40 [facility] Comment on above: Result Comment: The 95% CI (Confidence Interval) PPV (Positive Predictive Value) for myocardial infarction in females is 38 pg/mL, in males 51 pg/mL. The results should be used in conjunction with clinical conditions of myocardial infarction.(Access High Sensitivity Troponin I Instructions For Use, [employer], March 2018) Performed By: #### 2 341778, 5250982, 16485608, 47227618, 66150297, 84061940, 8216218 ####[facility] [address] [place] [address] Troponin 3 Hr.on 11-11-2023 Troponin 12.60 pg/mL Low 15.90-38.40 [facility] Comment on above: Result Comment: The 95% CI (Confidence Interval) PPV (Positive Predictive Value) for myocardial infarction in females is 38 pg/mL, in males 51 pg/mL. The results should be used in conjunction with clinical conditions of myocardial infarction.(Access High Sensitivity Troponin I Instructions For Use, [employer], March 2018) Performed By: #### 1 7480375 ####[facility] [address] [place] [address] Troponin 6 Hr.on 11-11-2023 Troponin 12.90 pg/mL Low 15.90-38.40 [facility] Comment on above: Result Comment: The 95% CI (Confidence Interval) PPV (Positive Predictive Value) for myocardial infarction in females is 38 pg/mL, in males 51 pg/mL. The results should be used in conjunction with clinical conditions of myocardial infarction.(Access High Sensitivity Troponin I Instructions For Use, [employer], March 2018) Performed By: #### 1 1522854 ####[facility] [address] [place] [address] Troponin I.cardiac [Mass/vol ume] in Serum or Plasma by Detection limit <= 0.01 ng/Ordered By: Tera Nevarez on 11-11-2023 Troponin I.cardiac DL <= 0.01 ng/mL [Mass/Vol] 12.3 pg/mL 0.0-20.0 [facility] UA with Cult Rflxon 11-11-19 24 Bilirubin Ql (U) 1+ Abnormal Negative [facility] Comment on above: Performed By: #### 2 936989, [id number] ####[facility] [address] [place] [address] Clarity (U) TURBID Abnormal Clear [facility] Comment on above: Performed By: #### 2 493679, [id number] ####[facility] [address] [place] [address] Color (U) BROWN Invalid Interpretation Code [facility] Comment on above: Performed By: #### 2 796704, [id number] ####[facility] [address] [place] [address] Glucose Test strip (U) [Mass/Vol] Negative Normal Negative [facility] Comment on above: Performed By: #### 2 716808, [id number] ####[address] [address] Hemoglobin Ql (U) 3+ Abnormal Negative [facility] Comment on above: Performed By: #### 2 995349, [id number] ####[address] [address] Ketones (U) [Mass/Vol] TRACE Invalid Interpretation Code Negative [facility] Comment on above: Performed By: #### 2 379666, [id number] ####[address] [address] Nitrite Ql (U) Positive Abnormal Negative [facility] Comment on above: Performed By: #### 2 080960, [id number] ####[address] [address] pH (U) 5.5 [pH] Invalid Interpretation Code 5.0-9.0 [facility] Comment on above: Performed By: #### 2 254401, 2332200800 ####[address] [address] Protein (U) [Mass/Vol] 2+ Abnormal Negative [facility] Comment on above: Performed By: #### 2 783865, 1359670793 ####[address] [address] Specific gravity (U) [Rel density] >=1.030 Invalid Interpretation Code 1.005-1.030 [facility] Comment on above: Performed By: #### 2 215618, [id number] ####[address] [address] UA Bacteria 2+ [id number] Abnormal Trace [facility] Comment on above: Performed By: #### 2 283876, [id number] ####[place] [address] [place] [address] UA Mucous Trace Normal Negative [facility] Comment on above: Performed By: #### 2 156127, 1512922797 ####[address] [address] UA RBC >75 Abnormal 0-3 [facility] Comment on above: Performed By: #### 2 336091, [id number] ####[place] [address] UA Squam Epithelial 0-2 Normal 0-2 [facility] Comment on above: Performed By: #### 2 828679, [id number] ####[place] [address] UA WBC 31-75 Abnormal 0-5 [facility] Comment on above: Performed By: #### 2 692253, [id number] ####[place] [address] Urobilinogen Qn (U) 0.2 Normal 0.0-1.0 [facility] Comment on above: Performed By: #### 2 555291, [id number] ####[place] [address] WBC Auto Ql (U) 1+ Abnormal Negative [facility] Comment on above: Performed By: #### 2 986994, [id number] ####[place] [address] UA Spec Desc Clean Catch Normal [facility] Comment on above: Performed By: #### 2 742181, [id number] ####[place] [address] URINALYSISOrdered By: Yohannes Schmidt on 11-11-2023 Bilirubin Ql (U) 1+ *ABN* (11/11/23 9:14 AM) Invalid Interpretation Code Negative [facility] Auto SS Clarity (U) Turbid *ABN* (11/11/23 9:14 AM) Invalid Interpretation Code Clear [facility] UA Auto SS Color (U) BROWN Invalid Interpretation Code [facility] UA Auto SS Glucose Test strip [...] Auto Ql (U) None seen None Seen [facility] Urine clarity by refractomet ry automatedOrdered By: Tera Nevarez on 11-11-2023 Clarity Refractometry automated (U) Turbid Clear [facility] Urine culture routineOrdered By: Tera Nevarez on 11-11-2023 Bacteria identified Cx Nom (U) Kaelyn albicans [facility] Urine glucose measurement by automated test strip (mass/volume)Ordered By: Tera Nevarez on 11-11-2023 Glucose Auto test strip (U) [Mass/Vol] Normal mg/dL Normal [facility] Urine hemoglobin detection b y automated test stripOrdered By: Tera Nevarez on 11-11-2023 Hemoglobin Auto test strip Ql (U) 3+ Negative [facility] Urine leukocyte esterase det ection by automated test stripOrdered By: Tera Nevarez on 11-11-2023 Leukocyte esterase Auto test strip Ql (U) 3+ Negative [facility] Urobilinogen Auto test strip (U) [Mass/Vol]Ordered By: Tera Nevarez on 11-11-2023 Urobilinogen (U) [Mass/Vol] Normal mg/dL Normal [facility] XR Chest Single Viewon 11-10 XR Chest Single View Normal [facility] Yeast detection in urine sed iment by light microscopyOrdered By: Tera Nevarez on 11-11-2023 Yeast LM Ql (Urine sed) Hyphae present [HPF] None Seen [facility] Comment on above: 2+ eGFRon 11-11-2023 eGFR 12 mL/min/1.73 m2 Low >=59 [facility] Comment on above: Order Comment: Order added by Discern Expert. Performed By: #### 2 353325, 9843028, 14554230, 83121185, 18823560, 18831910, 6411967 ####[facility] [address] [place] [address] pH Auto test strip (U)Ordere d By: Tera Nevarez on 11-11-2023 pH (U) 5.0 [pH] 5.0-9.0 [facility] Ambulatory Visit Summaryon 0 11-01-2023 Ambulatory Visit Summary [facility] CNPNon 10-31-2023 CNPN Telephone (PODCCP) NICOLE LORA ([id number]) 1960 M Date Time Provider Department 10/31/23 MENDY MOUNIKA PODCCP During your visit today, we recorded the following information about you: Allergies As of Date: 10/31/2023 Noted Allergy Reaction PENICILLINS 12/01/2014 2 - Rash Date Reviewed: 10/25/2023 Reviewed by: Matt Kingston RN - Fully Assessed Reason for Visit: Follow Up Phone Call [[id number]] Cmt: Post Discharge F/U - attempt made. [...] by KIKO DEL VALLE on 10/31/23 Normal [facility] Consent for Treatmenton 10-19 Consent for Treatment [id number]#1 .00TIFF [facility] Discharge Instructionson Discharge Instructions [id number]# 1.00TIFF Normal [facility] ED Clinical Summaryon 2023 ED Clinical Summary Normal Gina srinivasan [facility] ED Note-Physicianon 10-30-19 ED Note-Physician Normal [facility] Comment on above: Result Comment: Elec tronically Signed By: Staci Beck DO\Date and Time Signed: 10/30/23 05:22 EDT ED Patient Education Noteon 10-30-2023 ED Patient Education Note Normal [facility] ED Patient Summaryon ED Patient Summary Normal [facility] CBC W Auto Differential pane l (Bld)on 10-28-2023 Basophils (Bld) [#/Vol] 0.04 10*3/uL Normal <0.11 [facility] Comment on above: Order Comment: Speci men Type: BLOOD SPECIMEN Ordering Facility: [facility] Address: [address] [place] [address] Performed By: #### 1 9123-04, #### [facility] CLIA [id number] [place] [address] [place] Basophils/100 WBC (Bld) 0.7 % Normal [facility] Comment on above: Order Comment: Speci men Type: BLOOD SPECIMEN Ordering Facility: [facility] Address: [address] [place] [address] Performed By: #### 1 9123-04, #### [facility] CLIA [id number] [address] [place] [address] [place] Differential cell count method Nom (Bld) Auto Normal [facility] Comment on above: Order Comment: Speci men Type: BLOOD SPECIMEN Ordering Facility: [facility] Address: [address] [place] [address] Performed By: #### 1 9123-04, #### [facility] CLIA [id number] [address] [place] [address] [place] Eosinophils (Bld) [#/Vol] 0.32 10*3/uL Normal <0.46 [facility] Comment on above: Order Comment: Speci men Type: BLOOD SPECIMEN Ordering Facility: [facility] Address: [address] [place] [address] Performed By: #### 1 9123-04, #### [facility] CLIA [id number] [address] [place] [address] [place] Eosinophils/100 WBC (Bld) 5.4 % Normal [facility] Comment on above: Order Comment: Speci men Type: BLOOD SPECIMEN Ordering Facility: [facility] Address: [address] [place] [address] Performed By: #### 1 56, 07315-4 #### [facility] CLIA [id number] [address] [place] [address] [place] Erythrocyte distribution width (RBC) [Ratio] 16.1 % High 11.5-15.0 [facility] Comment on above: Order Comment: Speci men Type: BLOOD SPECIMEN Ordering Facility: [facility] Address: [address] [place] [address] Performed By: #### 1 9123-9, 75795-6 #### [facility] CLIA [id number] [address] [place] [address] [place] Hematocrit (Bld) [Volume fraction] 41.3 % Normal 39.0-51.0 [facility] Comment on above: Order Comment: Speci men Type: BLOOD SPECIMEN Ordering Facility: [facility] Address: [address] [place] [address] Performed By: #### 1 9123-9, 78988-4 #### [facility] CLIA [id number] [address] [place] [address] [place] Hemoglobin (Bld) [Mass/Vol] 12.3 g/dL Low 13.0-17.0 [facility] Comment on above: Order Comment: Speci men Type: BLOOD SPECIMEN Ordering Facility: [facility] Address: [address] [place] [address] Performed By: #### 1 9123-9, 47202-2 #### [facility] CLIA [id number] [address] [place] [address] [place] Immature granulocytes (Bld) [#/Vol] 10*3/uL Normal <0.10 [facility] Comment on above: Order Comment: Speci men Type: BLOOD SPECIMEN Ordering Facility: [facility] Address: [address] [place] [address] Performed By: #### 1 7223-9, 92104-3 #### [facility] CLIA [id number] [address] [place] [address] [place] Immature granulocytes/100 WBC (Bld) 0.3 % Normal [facility] Comment on above: Order Comment: Speci men Type: BLOOD SPECIMEN Ordering Facility: [facility] Address: [address] [place] [address] Performed By: #### 1 9123-9, #### [facility] CLIA [id number] [address] [place] [address] [place] Lymphocytes (Bld) [#/Vol] 1.01 10*3/uL Normal 1.00-4.00 [facility] Comment on above: Order Comment: Speci men Type: BLOOD SPECIMEN Ordering Facility: [facility] Address: [address] [place] [address] Performed By: #### 1 91239, #### [facility] CLIA [id number] [address] [place] [address] [place] Lymphocytes/100 WBC (Bld) 17.0 % Normal [facility] Comment on above: Order Comment: Speci men Type: BLOOD SPECIMEN Ordering Facility: [facility] Address: [address] [place] [address] Performed By: #### 1 239, #### [facility] CLIA [id number] [address] [place] [address] [place] MCH (RBC) [Entitic mass] 26.6 pg Normal 26.0-34.0 [facility] Comment on above: Order Comment: Speci men Type: BLOOD SPECIMEN Ordering Facility: [facility] Address: [address] [place] [address] Performed By: #### 1 9123-9, #### [facility] CLIA [id number] [address] [place] [address] [place] MCHC (RBC) [Mass/Vol] 29.8 g/dL Low 30.5-36.0 [facility] Comment on above: Order Comment: Speci men Type: BLOOD SPECIMEN Ordering Facility: [facility] Address: [address] [place] [address] Performed By: #### 1 9123-9, #### [facility] CLIA [id number] [address] [place] [address] [place] MCV (RBC) [Entitic vol] 89.4 fL Normal 80.0-100.0 [facility] Comment on above: Order Comment: Speci men Type: BLOOD SPECIMEN Ordering Facility: [facility] Address: [address] [place] [address] Performed By: #### 1 239, #### [facility] CLIA [id number] [address] [place] [address] [place] Monocytes (Bld) [#/Vol] 0.67 10*3/uL Normal <0.87 [facility] Comment on above: Order Comment: Speci men Type: BLOOD SPECIMEN Ordering Facility: [facility] Address: [address] [place] [address] Performed By: #### 1 9123-04, #### [facility] CLIA [id number] [address] [place] [address] [place] Monocytes/100 WBC (Bld) 11.3 % Normal [facility] Comment on above: Order Comment: Speci men Type: BLOOD SPECIMEN Ordering Facility: [facility] Address: [address] [place] [address] Performed By: #### 1 9, #### [facility] CLIA [id number] [address] [place] [address] [place] Neutrophils (Bld) [#/Vol] 3.88 10*3/uL Normal 1.45-7.50 [facility] Comment on above: Order Comment: Speci men Type: BLOOD SPECIMEN Ordering Facility: [facility] Address: [address] [place] [address] Performed By: #### 1 239, 32373-8 #### [facility] CLIA [id number] [address] [place] [address] [place] Neutrophils/100 WBC (Bld) 65.3 % Normal [facility] Comment on above: Order Comment: Speci men Type: BLOOD SPECIMEN Ordering Facility: [facility] Address: [address] [place] [address] Performed By: #### 1 239, 39917-1 #### [facility] CLIA [id number] [address] [place] [address] [place] Nucleated RBC (Bld) [#/Vol] 10*3/uL Normal <0.01 [facility] Comment on above: Order Comment: Speci men Type: BLOOD SPECIMEN Ordering Facility: [facility] Address: [address] [place] [address] Performed By: #### 1 9123-9, 27639-0 #### [facility] CLIA [id number] [address] [place] [address] [place] Nucleated RBC/100 WBC (Bld) [Ratio] 0.0 /100 WBC Normal [facility] Comment on above: Order Comment: Speci men Type: BLOOD SPECIMEN Ordering Facility: [facility] Address: [address] [place] [address] Performed By: #### 1 9123-9, 18857-8 #### [facility] CLIA [id number] [address] [place] [address] [place] Platelet mean volume (Bld) [Entitic vol] 8.9 fL Low 9.0-12.7 [facility] Comment on above: Order Comment: Speci men Type: BLOOD SPECIMEN Ordering Facility: [facility] Address: [address] [place] [address] Performed By: #### 1 9123-9, 88371-1 #### [facility] CLIA [id number] [address] [place] [address] [place] Platelets (Bld) [#/Vol] 250 10*3/uL Normal 150-400 [facility] Comment on above: Order Comment: Speci men Type: BLOOD SPECIMEN Ordering Facility: [facility] Address: [address] [place] [address] Performed By: #### 1 9123-9, 45009-4 #### [facility] CLIA [id number] [address] [place] [address] [place] RBC (Bld) [#/Vol] 4.62 10*6/uL Normal 4.20-6.00 [facility] Comment on above: Order Comment: Speci men Type: BLOOD SPECIMEN Ordering Facility: [facility] Address: [facility] [place] [address] Performed By: #### 1 9123-9, 74173-8 #### [facility] CLIA [id number] [address] [place] [id number] [facility] WBC (Bld) [#/Vol] 5.94 10*3/uL Normal 3.70-11.00 [facility] Comment on above: Order Comment: Speci men Type: BLOOD SPECIMEN Ordering Facility: [facility] Address: [address] [place] [id number] Performed By: #### 1 9123-9, 60259-5 #### [facility] CLIA [id number] [address] [place] [id number] [facility] CNDSon 10-28-2023 CNDS HNO ID: [id number] Author: TAY STEWART MD Service: General Internal [...] Follow Up Appointments Follow-Up Appointment Office number: [phone] When: In 1 week Patient/Parents to call for appointment?: Yes Tay Stewart MD [phone] [place] [address] PCP Requested Referral Follow-Up Appointment With: your Primary Care Doctor When: In 1 week Patient/Parents to call for appointment?: Yes Additional Provider to Provider Information: This is a 63 year old male with a PMHx of CKD 3b, chronic respiratory failure, morbid obesity, insulin dependent diabetes, left forefoot amputation admitted from home, lives in [place] for fluid overload. The patient states he's [...] no ischemic (more content not included)... Normal [facility] Magnesium SerPl-mCncon 10-27 Magnesium [Mass/Vol] 2.0 mg/dL Normal 1.7-2.3 [facility] Comment on above: Order Comment: [place] Type: BLOOD SPECIMEN Ordering Facility: [facility] Address: [address] [place] [address] Performed By: #### 1 9123-9, 74661-6 #### [facility] CLIA [id number] [address] [place] [address] [place] Renal function 2000 panelon 10-28-2023 Albumin [Mass/Vol] 3.3 g/dL Low 3.9-4.9 [facility] Comment on above: Order Comment: [place] Type: BLOOD SPECIMEN Ordering Facility: [facility] Address: [address] [place] [address] Performed By: #### 1 9123-9, 07567-0 #### [facility] CLIA [id number] [address] [place] [address] [place] Anion gap [Moles/Vol] 8 mmol/L Low 9-18 [facility] Comment on above: Order Comment: [place] Type: BLOOD SPECIMEN Ordering Facility: [facility] Address: [address] [place] [address] Performed By: #### 1 9123-9, 43352-1 #### [facility] CLIA [id number] [address] [place] [address] [place] Calcium [Mass/Vol] 9.1 mg/dL Normal 8.5-10.2 [facility] Comment on above: Order Comment: Speci men Type: BLOOD SPECIMEN Ordering Facility: [facility] Address: [address] [place] [address] Performed By: #### 1 9123-9, 28715-0 #### [facility] CLIA [id number] [address] [place] [address] [place] Chloride [Moles/Vol] 97 mmol/L Normal 97-105 [facility] Comment on above: Order Comment: Speci men Type: BLOOD SPECIMEN Ordering Facility: [facility] Address: [address] [place] [address] Performed By: #### 1 9123-9, 40894-2 #### [facility] CLIA [id number] [address] [place] [address] [place] CO2 [Moles/Vol] 35 mmol/L High 22-30 [facility] Comment on above: Order Comment: Speci men Type: BLOOD SPECIMEN Ordering Facility: [facility] Address: [address] [place] [address] Performed By: #### 1 9123-9, 70542-8 #### [facility] CLIA [id number] [address] [place] [address] [place] Creatinine [Mass/Vol] 1.72 mg/dL High 0.73-1.22 [facility] Comment on above: Order Comment: Speci men Type: BLOOD SPECIMEN Ordering Facility: [facility] Address: [address] [place] [address] Performed By: #### 1 9123-9, 62038-9 #### [facility] CLIA [id number] [address] [place] [address] [place] Creatinine and Glomerular filtration rate.predicted panel (S/P/Bld) 44 mL/min/1.73m??? Low >=60 [facility] Comment on above: Order Comment: [place] Type: BLOOD SPECIMEN Ordering Facility: [facility] Address: [address] [place] [address] Result Comment: Meredith mated Glomerular Filtration Rate [...] actual GFR. Performed By: #### 1 9123-9, 10639-6 #### [facility] CLIA [id number] [place] [address] [place] Glucose [Mass/Vol] 152 mg/dL High 74-99 [facility] Comment on above: Order Comment: [place] Type: BLOOD SPECIMEN Ordering Facility: [facility] Address: [address] [place] [address] Result Comment: The [place] Diabetes Association (ADA) provides guidance for cutoff [...] Standards of Medical Care in Diabetes 2016, [place] [employer]. Diabetes Care. 2016.39(Suppl 1). Performed By: #### 1 9123-9, 33140-6 #### [facility] CLIA [id number] [place] [address] [place] Phosphate [Mass/Vol] 4.6 mg/dL Normal 2.7-4.8 [facility] Comment on above: Order Comment: [place] Type: BLOOD SPECIMEN Ordering Facility: [facility] Address: [address] [place] [address] Performed By: #### 1 9123-9, 87776-7 #### [facility] CLIA [id number] [address] [place] [address] [place] Potassium [Moles/Vol] 4.0 mmol/L Normal 3.7-5.1 [facility] Comment on above: Order Comment: Speci men Type: BLOOD SPECIMEN Ordering Facility: [facility] Address: [address] [place] [address] Performed By: #### 1 9123-9, 60124-4 #### [facility] CLIA [id number] [address] [place] [address] [place] Sodium [Moles/Vol] 140 mmol/L Normal 136-144 [facility] Comment on above: Order Comment: Speci men Type: BLOOD SPECIMEN Ordering Facility: [facility] Address: [address] [place] [address] Performed By: #### 1 9123-9, 41665-4 #### [facility] CLIA [id number] [address] [place] [address] [place] Urea nitrogen [Mass/Vol] 39 mg/dL High 9-24 [facility] Comment on above: Order Comment: Speci men Type: BLOOD SPECIMEN Ordering Facility: [facility] Address: [address] [place] [address] Performed By: #### 1 9123-9, 05446-8 #### [facility] CLIA [id number] [address] [place] [address] [place] CBC W Auto Differential pane l (Bld)on 10-27-2023 Basophils (Bld) [#/Vol] 10*3/uL Normal <0.11 [facility] Comment on above: Order Comment: Speci men Type: BLOOD SPECIMEN Ordering Facility: [facility] Address: [address] [place] [address] Performed By: #### 1 9123-9, 24800-0 #### [facility] CLIA [id number] [address] [place] [address] [place] Basophils/100 WBC (Bld) 0.3 % Normal [facility] Comment on above: Order Comment: Speci men Type: BLOOD SPECIMEN Ordering Facility: [facility] Address: [address] [place] [address] Performed By: #### 1 9123-04, #### [facility] CLIA [id number] [address] [place] [address] [place] Differential cell count method Nom (Bld) Auto Normal [facility] Comment on above: Order Comment: Speci men Type: BLOOD SPECIMEN Ordering Facility: [facility] Address: [address] [place] [address] Performed By: #### 1 9123-04, #### [facility] CLIA [id number] [address] [place] [address] [place] Eosinophils (Bld) [#/Vol] 0.26 10*3/uL Normal <0.46 [facility] Comment on above: Order Comment: Speci men Type: BLOOD SPECIMEN Ordering Facility: [facility] Address: [address] [place] [address] Performed By: #### 1 9123-04, #### [facility] CLIA [id number] [address] [place] [address] [place] Eosinophils/100 WBC (Bld) 4.4 % Normal [facility] Comment on above: Order Comment: Speci men Type: BLOOD SPECIMEN Ordering Facility: [facility] Address: [address] [place] [address] Performed By: #### 1 9123-04, #### [facility] CLIA [id number] [address] [place] [address] [place] Erythrocyte distribution width (RBC) [Ratio] 16.0 % High 11.5-15.0 [facility] Comment on above: Order Comment: Speci men Type: BLOOD SPECIMEN Ordering Facility: [facility] Address: [address] [place] [address] Performed By: #### 1 9123-04, #### [facility] CLIA [id number] [address] [place] [address] [place] Hematocrit (Bld) [Volume fraction] 39.9 % Normal 39.0-51.0 [facility] Comment on above: Order Comment: Speci men Type: BLOOD SPECIMEN Ordering Facility: [facility] Address: [address] [place] [address] Performed By: #### 1 9123-04, #### [facility] CLIA [id number] [address] [place] [address] [place] Hemoglobin (Bld) [Mass/Vol] 12.0 g/dL Low 13.0-17.0 [facility] Comment on above: Order Comment: Speci men Type: BLOOD SPECIMEN Ordering Facility: [facility] Address: [address] [place] [address] Performed By: #### 1 9123-04, #### [facility] CLIA [id number] [address] [place] [address] [place] Immature granulocytes (Bld) [#/Vol] 10*3/uL Normal <0.10 [facility] Comment on above: Order Comment: Speci men Type: BLOOD SPECIMEN Ordering Facility: [facility] Address: [address] [place] [address] Performed By: #### 1 23, #### [facility] CLIA [id number] [address] [place] [address] [place] Immature granulocytes/100 WBC (Bld) 0.3 % Normal [facility] Comment on above: Order Comment: Speci men Type: BLOOD SPECIMEN Ordering Facility: [facility] Address: [address] [place] [address] Performed By: #### 1 23, #### [facility] CLIA [id number] [address] [place] [address] [place] Lymphocytes (Bld) [#/Vol] 0.96 10*3/uL Low 1.00-4.00 [facility] Comment on above: Order Comment: Speci men Type: BLOOD SPECIMEN Ordering Facility: [facility] Address: [address] [place] [address] Performed By: #### 1 9123-04, 71508-6 #### [facility] CLIA [id number] [address] [place] [address] [place] Lymphocytes/100 WBC (Bld) 16.4 % Normal [facility] Comment on above: Order Comment: Speci men Type: BLOOD SPECIMEN Ordering Facility: [facility] Address: [address] [place] [address] Performed By: #### 1 9123-9, 55381-8 #### [facility] CLIA [id number] [address] [place] [address] [facility] MCH (RBC) [Entitic mass] 26.7 pg Normal 26.0-34.0 [facility] Comment on above: Order Comment: Speci men Type: BLOOD SPECIMEN Ordering Facility: [facility] Address: [address] [place] [address] Performed By: #### 1 9123-9, 83797-6 #### [facility] CLIA [id number] [address] [place] [address] [place] MCHC (RBC) [Mass/Vol] 30.1 g/dL Low 30.5-36.0 [facility] Comment on above: Order Comment: Speci men Type: BLOOD SPECIMEN Ordering Facility: [facility] Address: [address] [place] [address] Performed By: #### 1 9123-9, 35919-1 #### [facility] CLIA [id number] [address] [place] [address] [place] MCV (RBC) [Entitic vol] 88.9 fL Normal 80.0-100.0 [facility] Comment on above: Order Comment: Speci men Type: BLOOD SPECIMEN Ordering Facility: [facility] Address: [address] [place] [address] Performed By: #### 1 9123-9, 24351-7 #### [facility] CLIA [id number] [address] [place] [address] [place] Monocytes (Bld) [#/Vol] 0.70 10*3/uL Normal <0.87 [facility] Comment on above: Order Comment: Speci men Type: BLOOD SPECIMEN Ordering Facility: [facility] Address: [address] [place] [address] Performed By: #### 1 23, #### [facility] CLIA [id number] [address] [place] [address] [place] Monocytes/100 WBC (Bld) 11.9 % Normal [facility] Comment on above: Order Comment: Speci men Type: BLOOD SPECIMEN Ordering Facility: [facility] Address: [address] [place] [address] Performed By: #### 1 9123-04, #### [facility] CLIA [id number] [address] [place] [address] [place] Neutrophils (Bld) [#/Vol] 3.91 10*3/uL Normal 1.45-7.50 [facility] Comment on above: Order Comment: Speci men Type: BLOOD SPECIMEN Ordering Facility: [facility] Address: [address] [place] [address] Performed By: #### 1 9123-04, #### [facility] CLIA [id number] [address] [place] [address] [place] Neutrophils/100 WBC (Bld) 66.7 % Normal [facility] Comment on above: Order Comment: Speci men Type: BLOOD SPECIMEN Ordering Facility: [facility] Address: [address] [place] [address] Performed By: #### 1 9123-04, #### [facility] CLIA [id number] [address] [place] [address] [place] Nucleated RBC (Bld) [#/Vol] 10*3/uL Normal <0.01 [facility] Comment on above: Order Comment: Speci men Type: BLOOD SPECIMEN Ordering Facility: [facility] Address: [address] [place] [address] Performed By: #### 1 9123, #### [facility] CLIA [id number] [address] [place] [address] [place] Nucleated RBC/100 WBC (Bld) [Ratio] 0.0 /100 WBC Normal [facility] Comment on above: Order Comment: Speci men Type: BLOOD SPECIMEN Ordering Facility: [facility] Address: [address] [place] [address] Performed By: #### 1 9123-9, 75339-8 #### [facility] CLIA [id number] [address] [place] [address] [place] Platelet mean volume (Bld) [Entitic vol] 8.7 fL Low 9.0-12.7 [facility] Comment on above: Order Comment: Speci men Type: BLOOD SPECIMEN Ordering Facility: [facility] Address: [address] [place] [address] Performed By: #### 1 9123-9, 66435-9 #### [facility] CLIA [id number] [address] [place] [address] [place] Platelets (Bld) [#/Vol] 222 10*3/uL Normal 150-400 [facility] Comment on above: Order Comment: Speci men Type: BLOOD SPECIMEN Ordering Facility: [facility] Address: [address] [place] [address] Performed By: #### 1 9123-9, #### [facility] CLIA [id number] [address] [place] [address] [place] RBC (Bld) [#/Vol] 4.49 10*6/uL Normal 4.20-6.00 [facility] Comment on above: Order Comment: Speci men Type: BLOOD SPECIMEN Ordering Facility: [facility] Address: [address] [place] [address] Performed By: #### 1 9123-9, 23584-0 #### [facility] CLIA [id number] [address] [place] [address] [place] WBC (Bld) [#/Vol] 5.87 10*3/uL Normal 3.70-11.00 [facility] Comment on above: Order Comment: Speci men Type: BLOOD SPECIMEN Ordering Facility: [facility] Address: [address] [place] [address] Performed By: #### 1 9123-9, 94450-9 #### [facility] [id number] CONSULT PROGon 10-27-2023 CONSULT PROG HNO ID: [id number] Author: NAUN COUCH MD Service: Nephrology Author [...] amputation admitted from home who presented to [facility] with complaints of worsening shortness of breath, bilateral lower extremity edema and ~ 10lb weight gain in the last few weeks. Patient reports multiple hospital admissions in 2023 at [facility] in [place] for fluid overload. He states he usually [...] feeling b (more content not included)... Normal [facility] Comprehensive metabolic 2000 panelon 10-27-2023 Albumin [Mass/Vol] 3.3 g/dL Low 3.9-4.9 [facility] Comment on above: Order Comment: [place] Type: BLOOD SPECIMEN Ordering Facility: [facility] Address: [address] [place] [address] Performed By: #### 1 9123-9, 13633-8 #### [facility] CLIA [id number] [address] [place] [address] [place] ALP [Catalytic activity/Vol] 88 U/L Normal 38-113 [facility] Comment on above: Order Comment: Speci men Type: BLOOD SPECIMEN Ordering Facility: [facility] Address: [address] [place] [address] Performed By: #### 1 9123-9, 15760-9 #### [facility] CLIA [id number] [address] [place] [address] [place] ALT [Catalytic activity/Vol] 11 U/L Normal 10-54 [facility] Comment on above: Order Comment: Speci men Type: BLOOD SPECIMEN Ordering Facility: [facility] Address: [address] [place] [address] Performed By: #### 1 9123-9, 40681-5 #### [facility] CLIA [id number] [address] [place] [address] [place] Anion gap [Moles/Vol] 9 mmol/L Normal 9-18 [facility] Comment on above: Order Comment: Speci men Type: BLOOD SPECIMEN Ordering Facility: [facility] Address: [address] [place] [address] Performed By: #### 1 91239, 20798-2 #### [facility] CLIA [id number] [address] [place] [address] [place] AST [Catalytic activity/Vol] 11 U/L Low 14-40 [facility] Comment on above: Order Comment: Speci men Type: BLOOD SPECIMEN Ordering Facility: [facility] Address: [address] [place] [address] Performed By: #### 1 9123-9, 48154-3 #### [facility] CLIA [id number] [address] [place] [address] [place] Bilirubin [Mass/Vol] 0.6 mg/dL Normal 0.2-1.3 [facility] Comment on above: Order Comment: Speci men Type: BLOOD SPECIMEN Ordering Facility: [facility] Address: [address] [place] [address] Performed By: #### 1 9123-9, 41065-8 #### [facility] CLIA [id number] [address] [place] [address] [place] Calcium [Mass/Vol] 9.1 mg/dL Normal 8.5-10.2 [facility] Comment on above: Order Comment: Speci men Type: BLOOD SPECIMEN Ordering Facility: [facility] Address: [address] [place] [address] Performed By: #### 1 9123-9, 22356-4 #### [facility] CLIA [id number] [address] [place] [address] [place] Chloride [Moles/Vol] 100 mmol/L Normal 97-105 [facility] Comment on above: Order Comment: Speci men Type: BLOOD SPECIMEN Ordering Facility: [facility] Address: [address] [place] [address] Performed By: #### 1 9123-9, 81342-2 #### [facility] CLIA [id number] [address] [place] [address] [place] CO2 [Moles/Vol] 35 mmol/L High 22-30 [facility] Comment on above: Order Comment: Speci men Type: BLOOD SPECIMEN Ordering Facility: [facility] Address: [address] [place] [address] Performed By: #### 1 9123-9, 37720-4 #### [facility] CLIA [id number] [address] [place] [address] [place] Creatinine [Mass/Vol] 1.62 mg/dL High 0.73-1.22 [facility] Comment on above: Order Comment: Speci men Type: BLOOD SPECIMEN Ordering Facility: [facility] Address: [address] [place] [address] Performed By: #### 1 9123-9, 50999-3 #### [facility] CLIA [id number] [address] [place] [address] [place] Creatinine and Glomerular filtration rate.predicted panel (S/P/Bld) 47 mL/min/1.73m??? Low >=60 [facility] Comment on above: Order Comment: Speci men Type: BLOOD SPECIMEN Ordering Facility: [facility] Address: [address] [place] [address] Result Comment: Meredith mated Glomerular Filtration Rate [...] actual GFR. Performed By: #### 1 9123-9, 14458-4 #### [facility] CLIA [id number] [place] [address] [place] Glucose [Mass/Vol] 145 mg/dL High 74-99 [facility] Comment on above: Order Comment: [place] Type: BLOOD SPECIMEN Ordering Facility: [facility] Address: [address] [place] [address] Result Comment: The [place] [employer] (ADA) provides guidance for cutoff [...] Standards of Medical Care in Diabetes 2016, [place] [employer]. Diabetes Care. 2016.39(Suppl 1). Performed By: #### 1 9123-9, 10066-2 #### [facility] CLIA [id number] [place], [place] [address] [place] Potassium [Moles/Vol] 4.1 mmol/L Normal 3.7-5.1 [facility] Comment on above: Order Comment: [place] Type: BLOOD SPECIMEN Ordering Facility: [facility] Address: [address] [place] [address] Performed By: #### 1 9123-9, 13250-2 #### [facility] CLIA [id number] [address] [place] [id number] [place] Protein [Mass/Vol] 6.3 g/dL Normal 6.3-8.0 [facility] Comment on above: Order Comment: Speci men Type: BLOOD SPECIMEN Ordering Facility: [facility] Address: [address] [place] [address] Performed By: #### 1 9123-9, 35316-3 #### [facility] CLIA [id number] [address] [place] [address] [place] Sodium [Moles/Vol] 144 mmol/L Normal 136-144 [facility] Comment on above: Order Comment: Speci men Type: BLOOD SPECIMEN Ordering Facility: [facility] Address: [address] [place] [address] Performed By: #### 1 9123-9, 89082-6 #### [facility] CLIA [id number] [address] [place] [address] [place] Urea nitrogen [Mass/Vol] 40 mg/dL High 9-24 [facility] Comment on above: Order Comment: Speci men Type: BLOOD SPECIMEN Ordering Facility: [facility] Address: [address] [place] [address] Performed By: #### 1 9123-9, 46285-4 #### [facility] CLIA [id number] [address] [place] [address] [place] Magnesium SerPl-mCncon 10-26 Magnesium [Mass/Vol] 1.9 mg/dL Normal 1.7-2.3 [facility] Comment on above: Order Comment: Speci men Type: BLOOD SPECIMEN Ordering Facility: [facility] Address: [address] [place] [address] Performed By: #### 1 9123-9, 31781-6 #### [facility] CLIA [id number] [address] [place] [address] [place] Phosphate SerPl-mCncon 10-26 Phosphate [Mass/Vol] 4.1 mg/dL Normal 2.7-4.8 [facility] Comment on above: Order Comment: Speci men Type: BLOOD SPECIMEN Ordering Facility: [facility] Address: [address] [place] [address] Performed By: #### 1 9123-9, 90135-3 #### [facility] CLIA [id number] [address] [place] [address] [place] THERAPY NTon 10-27-2023 THERAPY NT HNO ID: [id number] Author: VELIA HARGROVE HAND PLEATER Service: Respiratory Therapy Author Type: Respiratory Therapist [...] 26, 2023 TIME: 10:12 PM PAGER/CONTACT #: [email or web address] Normal [facility] CBC W Auto Differential pane l (Bld)on 10-26-2023 Basophils (Bld) [#/Vol] 0.04 10*3/uL Normal <0.11 [facility] Comment on above: Order Comment: Speci men Type: BLOOD SPECIMEN Ordering Facility: [facility] Address: [address] [place] [address] Performed By: #### P TTAC #### [facility] CLIA [id number] [address] [place] [address] [place] Basophils/100 WBC (Bld) 0.6 % Normal [facility] Comment on above: Order Comment: Speci men Type: BLOOD SPECIMEN Ordering Facility: [facility] Address: [address] [place] [address] Performed By: #### P TTAC #### [facility] CLIA [id number] [address] [place] [address] [place] Differential cell count method Nom (Bld) Auto Normal [facility] Comment on above: Order Comment: Speci men Type: BLOOD SPECIMEN Ordering Facility: [facility] Address: [address] [place] [address] Performed By: #### P TTAC #### [facility] CLIA [id number] [address] [place] [address] [place] Eosinophils (Bld) [#/Vol] 0.29 10*3/uL Normal <0.46 [facility] Comment on above: Order Comment: Speci men Type: BLOOD SPECIMEN Ordering Facility: [facility] Address: [address] [place] [address] Performed By: #### P TTAC #### [facility] CLIA [id number] [address] [place] [address] [place] Eosinophils/100 WBC (Bld) 4.5 % Normal [facility] Comment on above: Order Comment: Speci men Type: BLOOD SPECIMEN Ordering Facility: [facility] Address: [address] [place] [address] Performed By: #### P TTAC #### [facility] CLIA [id number] [address] [place] [address] [place] Erythrocyte distribution width (RBC) [Ratio] 16.3 % High 11.5-15.0 [facility] Comment on above: Order Comment: Speci men Type: BLOOD SPECIMEN Ordering Facility: [facility] Address: [address] [place] [address] Performed By: #### P TTAC #### [facility] CLIA [id number] [address] [place] [address] [place] Hematocrit (Bld) [Volume fraction] 38.8 % Low 39.0-51.0 [facility] Comment on above: Order Comment: Speci men Type: BLOOD SPECIMEN Ordering Facility: [facility] Address: [address] [place] [address] Performed By: #### P TTAC #### [facility] CLIA [id number] [address] [place] [address] [place] Hemoglobin (Bld) [Mass/Vol] 11.6 g/dL Low 13.0-17.0 [facility] Comment on above: Order Comment: Speci men Type: BLOOD SPECIMEN Ordering Facility: [facility] Address: [address] [place] [address] Performed By: #### P TTAC #### [facility] CLIA [id number] [address] [place] [address] [place] Immature granulocytes (Bld) [#/Vol] 0.06 10*3/uL Normal <0.10 [facility] Comment on above: Order Comment: Speci men Type: BLOOD SPECIMEN Ordering Facility: [facility] Address: [address] [place] [address] Performed By: #### P TTAC #### [facility] CLIA [id number] [address] [place] [address] [place] Immature granulocytes/100 WBC (Bld) 0.9 % Normal [facility] Comment on above: Order Comment: Speci men Type: BLOOD SPECIMEN Ordering Facility: [facility] Address: [address] [place] [address] Performed By: #### P TTAC #### [facility] CLIA [id number] [address] [place] [address] [place] Lymphocytes (Bld) [#/Vol] 0.94 10*3/uL Low 1.00-4.00 [facility] Comment on above: Order Comment: Speci men Type: BLOOD SPECIMEN Ordering Facility: [facility] Address: [address] [place] [address] Performed By: #### P TTAC #### [facility] IA [id number] [address] [place] [address] [facility] Lymphocytes/100 WBC (Bld) 14.5 % Normal [facility] Comment on above: Order Comment: Speci men Type: BLOOD SPECIMEN Ordering Facility: [facility] Address: [address] [place] [address] Performed By: #### P TTAC #### [facility] CLIA [id number] [address] [place] [address] [place] MCH (RBC) [Entitic mass] 27.0 pg Normal 26.0-34.0 [facility] Comment on above: Order Comment: Speci men Type: BLOOD SPECIMEN Ordering Facility: [facility] Address: [address] [place] [address] Performed By: #### P TTAC #### [facility] CLIA [id number] [address] [place] [address] [place] MCHC (RBC) [Mass/Vol] 29.9 g/dL Low 30.5-36.0 [facility] Comment on above: Order Comment: Speci men Type: BLOOD SPECIMEN Ordering Facility: [facility] Address: [address] [place] [address] Performed By: #### P TTAC #### [facility] CLIA [id number] [address] [place] [address] [place] MCV (RBC) [Entitic vol] 90.2 fL Normal 80.0-100.0 [facility] Comment on above: Order Comment: Speci men Type: BLOOD SPECIMEN Ordering Facility: [facility] Address: [address] [place] [address] Performed By: #### P TTAC #### [facility] CLIA [id number] [address] [place] [address] [place] Monocytes (Bld) [#/Vol] 0.71 10*3/uL Normal <0.87 [facility] Comment on above: Order Comment: Speci men Type: BLOOD SPECIMEN Ordering Facility: [facility] Address: [address] [place] [address] Performed By: #### P TTAC #### [facility] CLIA [id number] [address] [place] [address] [place] Monocytes/100 WBC (Bld) 10.9 % Normal [facility] Comment on above: Order Comment: Speci men Type: BLOOD SPECIMEN Ordering Facility: [facility] Address: [address] [place] [address] Performed By: #### P TTAC #### [facility] CLIA [id number] [address] [place] [address] [place] Neutrophils (Bld) [#/Vol] 4.45 10*3/uL Normal 1.45-7.50 [facility] Comment on above: Order Comment: Speci men Type: BLOOD SPECIMEN Ordering Facility: [facility] Address: [address] [place] [address] Performed By: #### P TTAC #### [facility] CLIA [id number] [address] [place] [address] [place] Neutrophils/100 WBC (Bld) 68.6 % Normal [facility] Comment on above: Order Comment: Speci men Type: BLOOD SPECIMEN Ordering Facility: [facility] Address: [address] [place] [address] Performed By: #### P TTAC #### [facility] CLIA [id number] [address] [place] [address] [place] Nucleated RBC (Bld) [#/Vol] 10*3/uL Normal <0.01 [facility] Comment on above: Order Comment: Speci men Type: BLOOD SPECIMEN Ordering Facility: [facility] Address: [address] [place] [address] Performed By: #### P TTAC #### [facility] CLIA [id number] [address] [place] [address] [place] Nucleated RBC/100 WBC (Bld) [Ratio] 0.0 /100 WBC Normal [facility] Comment on above: Order Comment: Speci men Type: BLOOD SPECIMEN Ordering Facility: [facility] Address: [address] [place] [address] Performed By: #### P TTAC #### [facility] CLIA [id number] [address] [place] [address] [place] Platelet mean volume (Bld) [Entitic vol] 9.0 fL Normal 9.0-12.7 [facility] Comment on above: Order Comment: Speci men Type: BLOOD SPECIMEN Ordering Facility: [facility] Address: [address] [place] [address] Performed By: #### P TTAC #### [facility] CLIA [id number] [address] [place] [address] [place] Platelets (Bld) [#/Vol] 247 10*3/uL Normal 150-400 [facility] Comment on above: Order Comment: Speci men Type: BLOOD SPECIMEN Ordering Facility: [facility] Address: [address] [place] [address] Performed By: #### P TTAC #### [facility] CLIA [id number] [place] [address] [place] RBC (Bld) [#/Vol] 4.30 10*6/uL Normal 4.20-6.00 [facility] Comment on above: Order Comment: Speci men Type: BLOOD SPECIMEN Ordering Facility: [facility] Address: [address] [place] [address] Performed By: #### P TTAC #### [facility] CLIA [id number] [address] [place] [address] [place] WBC (Bld) [#/Vol] 6.49 10*3/uL Normal 3.70-11.00 [facility] Comment on above: Order Comment: Speci men Type: BLOOD SPECIMEN Ordering Facility: [facility] Address: [address] [place] [address] Performed By: #### P TTAC #### [facility] CLIA [id number] [address] [place] [address] CONSULTon 10-26-2023 CONSULT HNO ID: [id number] Author: STEFANIE BARRETT MD Service: Pulmonary Disease [...] Airways Li (more content not included)... Normal [facility] CONSULT PROGon 10-26-2023 CONSULT PROG HNO ID: [id number] Author: GORDO BUTLER APRN.CNP Service: Cardiovascular Medicine Author Type: Nurse Practitioner Type: Consult Progress Note Filed: 10/26/2023 14:03 Note Text: [facility] CARDIOVASCULAR MEDICINE PROGRESS NOTE (Template ID [id number]) SERVICE DATE: 10/26/2023 SERVICE TIME: 1115 PRIMARY [...] ORAL DAILY Given, 10/25 85710/24/23 0141 -- 10/25/23 0015 activity - [place]ize [place] ([place] 10/24/23 014 activity - [place] VTE Prophylaxis: VTE prophylaxis appropriate ASSESSMENT [...] DATE: October 26, 2023 TIME: 1:52 PM [facility] CONSULT PROG HNO ID: [id number] Author: NAUN COUCH MD Service: Nephrology Author [...] amputation admitted from home who presented to [facility] with complaints of worsening shortness of breath, bilateral lower extremity edema and ~ 10lb weight gain in the last few weeks. Patient reports multiple hospital admissions in 2023 at [facility] in [place] for fluid overload. He states he usually [...] mg TID More stable, feeling better -HTN [address] V[employer] Hydra (more content not included)... Normal [facility] Magnesium SerPl-mCncon 10-25 Magnesium [Mass/Vol] 2.1 mg/dL Normal 1.7-2.3 [facility] Comment on above: Order Comment: Specbrianne nation Type: BLOOD SPECIMEN Ordering Facility: [facility] Address: [address] [place] [address] Performed By: #### 1 9123-9, 67785-3 #### [facility] CLIA [id number] [address] [place] [address] [place] Renal function 2000 panelon 10-26-2023 Albumin [Mass/Vol] 3.3 g/dL Low 3.9-4.9 [facility] Comment on above: Order Comment: [place] Type: BLOOD SPECIMEN Ordering Facility: [facility] Address: [address] [place] [address] Performed By: #### 1 9123-9, 19823-1 #### [facility] CLIA [id number] [address] [place] [address] [place] Anion gap [Moles/Vol] 15 mmol/L Normal 9-18 [facility] Comment on above: Order Comment: Speci men Type: BLOOD SPECIMEN Ordering Facility: [facility] Address: [address] [place] [address] Performed By: #### 1 9123-9, 01822-9 #### [facility] CLIA [id number] [address] [place] [address] [place] Calcium [Mass/Vol] 9.1 mg/dL Normal 8.5-10.2 [facility] Comment on above: Order Comment: Kentoni men Type: BLOOD SPECIMEN Ordering Facility: [facility] Address: [address] [place] [address] Performed By: #### 1 9123-9, 97537-3 #### [facility] CLIA [id number] [address] [place] [address] [place] Chloride [Moles/Vol] 101 mmol/L Normal 97-105 [facility] Comment on above: Order Comment: [place] Type: BLOOD SPECIMEN Ordering Facility: [facility] Address: [address] [place] [address] Performed By: #### 1 9123-9, 52658-6 #### [facility] CLIA [id number] [address] [place] [address] [place] CO2 [Moles/Vol] 30 mmol/L Normal 22-30 [facility] Comment on above: Order Comment: [place] Type: BLOOD SPECIMEN Ordering Facility: [facility] Address: [address] [place] [address] Performed By: #### 1 9123-9, 63851-9 #### [facility] CLIA [id number] [address] [place] [address] [place] Creatinine [Mass/Vol] 1.84 mg/dL High 0.73-1.22 [facility] Comment on above: Order Comment: [place] Type: BLOOD SPECIMEN Ordering Facility: [facility] Address: [address] [place] [address] Performed By: #### 1 9123-9, 39531-1 #### [facility] CLIA [id number] [address] [place] [address] [place] Creatinine and Glomerular filtration rate.predicted panel (S/P/Bld) 40 mL/min/1.73m??? Low >=60 [facility] Comment on above: Order Comment: Kentoni chapis Type: BLOOD SPECIMEN Ordering Facility: [facility] Address: [address] [place] [address] Result Comment: Meredith mated Glomerular Filtration Rate [...] actual GFR. Performed By: #### 1 9123-9, 15073-0 #### [facility] CLIA [id number] [address] [place] [address] [place] Glucose [Mass/Vol] 189 mg/dL High 74-99 [facility] Comment on above: Order Comment: [place] Type: BLOOD SPECIMEN Ordering Facility: [facility] Address: [address] [place] [address] Result Comment: The [place] [employer] (ADA) provides guidance for cutoff [...] Standards of Medical Care in Diabetes 2016, [place] [employer]. Diabetes Care. 2016.39(Suppl 1). Performed By: #### 1 9123-9, 15360-5 #### [facility] CLIA [id number] [address] [place] [address] [place] Phosphate [Mass/Vol] 3.9 mg/dL Normal 2.7-4.8 [facility] Comment on above: Order Comment: [place] Type: BLOOD SPECIMEN Ordering Facility: [facility] Address: [address] [place] [address] Performed By: #### 1 9123-9, 64399-4 #### [facility] CLIA [id number] [place] [address] [place] Potassium [Moles/Vol] 4.3 mmol/L Normal 3.7-5.1 [facility] Comment on above: Order Comment: [place] Type: BLOOD SPECIMEN Ordering Facility: [facility] Address: [address] [place] [address] Performed By: #### 1 9123-9, 40779-6 #### [facility] CLIA [id number] [address] [place] [address] [place] Sodium [Moles/Vol] 146 mmol/L High 136-144 [facility] Comment on above: Order Comment: Speci men Type: BLOOD SPECIMEN Ordering Facility: [facility] Address: [address] [place] [address] Performed By: #### 1 9123-9, 32002-5 #### [facility] CLIA [id number] [place] [address] [place] Urea nitrogen [Mass/Vol] 48 mg/dL High 9-24 [facility] Comment on above: Order Comment: Speci men Type: BLOOD SPECIMEN Ordering Facility: [facility] Address: [address] [place] [address] Performed By: #### 1 9123-9, 13463-5 #### [facility] CLIA [id number] [address] [place] [address] [place] ALLIED HEALTHon 10-25-2023 ALLIED HEALTH HNO ID: [id number] Author: CLARA HARDIN RT(Prem) Service: Radiology Author Type: Technologist Type: Allied [...] PATIENT PRESENTS WITH AN IMPLANTABLE OR ATTACHED WAREHOUSE GENERAL LABORER: No RADIOLOGY DEPARTMENT: General X-ray: Exam(s) Completed: Chest X-Ray PERIPHERAL IV DATA: Not applicable SIGNED BY: RT Raffy(Prem) October 25, 2023 4:59 AM Normal [facility] CASE MGT INIT ASSESon 2023 CASE MGT INIT [facility] HNO ID: [id number] Author: BUTCH WETZEL RN Service: ? Author [...] Relation: Son Admission Status: Inpatient Insurance Provider[facility] Discharge Planning requested by: Per Department Practice Potential Transition Plans To Be Determined Advance Directives Current Advance Directive: None Athletic Training Internship Attempted to Assist with AD Completion: Yes [...] TIME: 9:54 AM CONTACT #: [phone] Normal [facility] CBC W Auto Differential pane l (Bld)on 10-25-2023 Basophils (Bld) [#/Vol] 0.03 10*3/uL Normal <0.11 [facility] Comment on above: Order Comment: Speci men Type: BLOOD SPECIMEN Ordering Facility: [facility] Address: [address] [place] [address] Performed By: #### 1 9123-04, #### [facility] CLIA [id number] [address] [place] [address] [place] Basophils/100 WBC (Bld) 0.4 % Normal [facility] Comment on above: Order Comment: Speci men Type: BLOOD SPECIMEN Ordering Facility: [facility] Address: [address] [place] [address] Performed By: #### 1 9123-04, #### [facility] CLIA [id number] [address] [place] [address] [place] Differential cell count method Nom (Bld) Auto Normal [facility] Comment on above: Order Comment: Speci men Type: BLOOD SPECIMEN Ordering Facility: [facility] Address: [address] [place] [address] Performed By: #### 1 9123-04, #### [facility] CLIA [id number] [address] [place] [address] [place] Eosinophils (Bld) [#/Vol] 0.22 10*3/uL Normal <0.46 [facility] Comment on above: Order Comment: Speci men Type: BLOOD SPECIMEN Ordering Facility: [facility] Address: [address] [place] [address] Performed By: #### 1 9123-04, #### [facility] CLIA [id number] [address] [place] [address] [place] Eosinophils/100 WBC (Bld) 2.9 % Normal [facility] Comment on above: Order Comment: Speci men Type: BLOOD SPECIMEN Ordering Facility: [facility] Address: [address] [place] [address] Performed By: #### 1 9123-04, #### [facility] CLIA [id number] [address] [place] [address] [place] Erythrocyte distribution width (RBC) [Ratio] 16.5 % High 11.5-15.0 [facility] Comment on above: Order Comment: Speci men Type: BLOOD SPECIMEN Ordering Facility: [facility] Address: [address] [place] [address] Performed By: #### 1 10239, #### [facility] CLIA [id number] [address] [place] [address] [place] Hematocrit (Bld) [Volume fraction] 41.0 % Normal 39.0-51.0 [facility] Comment on above: Order Comment: Speci men Type: BLOOD SPECIMEN Ordering Facility: [facility] Address: [address] [place] [address] Performed By: #### 1 9123-04, #### [facility] CLIA [id number] [address] [place] [address] [place] Hemoglobin (Bld) [Mass/Vol] 12.1 g/dL Low 13.0-17.0 [facility] Comment on above: Order Comment: Speci men Type: BLOOD SPECIMEN Ordering Facility: [facility] Address: [address] [place] [address] Performed By: #### 1 5423, #### [facility] CLIA [id number] [address] [place] [address] [place] Immature granulocytes (Bld) [#/Vol] 0.04 10*3/uL Normal <0.10 [facility] Comment on above: Order Comment: Speci men Type: BLOOD SPECIMEN Ordering Facility: [facility] Address: [address] [place] [address] Performed By: #### 1 91239, #### [facility] CLIA [id number] [address] [place] [address] [place] Immature granulocytes/100 WBC (Bld) 0.5 % Normal [facility] Comment on above: Order Comment: Speci men Type: BLOOD SPECIMEN Ordering Facility: [facility] Address: [address] [place] [address] Performed By: #### 1 61, 26081-1 #### [facility] CLIA [id number] [address] [place] [address] [place] Lymphocytes (Bld) [#/Vol] 0.80 10*3/uL Low 1.00-4.00 [facility] Comment on above: Order Comment: Speci men Type: BLOOD SPECIMEN Ordering Facility: [facility] Address: [address] [place] [address] Performed By: #### 1 9123-9, 16460-7 #### [facility] CLIA [id number] [address] [place] [address] [place] Lymphocytes/100 WBC (Bld) 10.6 % Normal [facility] Comment on above: Order Comment: Speci men Type: BLOOD SPECIMEN Ordering Facility: [facility] Address: [address] [place] [address] Performed By: #### 1 9123-9, 09162-6 #### [facility] CLIA [id number] [address] [place] [address] [place] MCH (RBC) [Entitic mass] 26.8 pg Normal 26.0-34.0 [facility] Comment on above: Order Comment: Speci men Type: BLOOD SPECIMEN Ordering Facility: [facility] Address: [address] [place] [address] Performed By: #### 1 9123-9, 86240-1 #### [facility] CLIA [id number] [address] [place] [address] [place] MCHC (RBC) [Mass/Vol] 29.5 g/dL Low 30.5-36.0 [facility] Comment on above: Order Comment: Speci men Type: BLOOD SPECIMEN Ordering Facility: [facility] Address: [address] [place] [address] Performed By: #### 1 2423-9, 24777-4 #### [facility] CLIA [id number] [address] [place] [address] [place] MCV (RBC) [Entitic vol] 90.7 fL Normal 80.0-100.0 [facility] Comment on above: Order Comment: Speci men Type: BLOOD SPECIMEN Ordering Facility: [facility] Address: [address] [place] [address] Performed By: #### 1 9123-9, 94292-2 #### [facility] CLIA [id number] [address] [place] [address] [place] Monocytes (Bld) [#/Vol] 0.64 10*3/uL Normal <0.87 [facility] Comment on above: Order Comment: Speci men Type: BLOOD SPECIMEN Ordering Facility: [facility] Address: [address] [place] [address] Performed By: #### 1 9123-9, #### [facility] CLIA [id number] [address] [place] [address] [place] Monocytes/100 WBC (Bld) 8.5 % Normal [facility] Comment on above: Order Comment: Speci men Type: BLOOD SPECIMEN Ordering Facility: [facility] Address: [address] [place] [address] Performed By: #### 1 91239, #### [facility] CLIA [id number] [address] [place] [address] [place] Neutrophils (Bld) [#/Vol] 5.80 10*3/uL Normal 1.45-7.50 [facility] Comment on above: Order Comment: Speci men Type: BLOOD SPECIMEN Ordering Facility: [facility] Address: [address] [place] [address] Performed By: #### 1 9123-9, #### [facility] CLIA [id number] [address] [place] [address] [place] Neutrophils/100 WBC (Bld) 77.1 % Normal [facility] Comment on above: Order Comment: Speci men Type: BLOOD SPECIMEN Ordering Facility: [facility] Address: [address] [place] [address] Performed By: #### 1 9123-9, 55440-9 #### [facility] CLIA [id number] [address] [place] [address] [place] Nucleated RBC (Bld) [#/Vol] 10*3/uL Normal <0.01 [facility] Comment on above: Order Comment: Speci men Type: BLOOD SPECIMEN Ordering Facility: [facility] Address: [address] [place] [address] Performed By: #### 1 9123-9, #### [facility] CLIA [id number] [address] [place] [address] [place] Nucleated RBC/100 WBC (Bld) [Ratio] 0.0 /100 WBC Normal [facility] Comment on above: Order Comment: Speci men Type: BLOOD SPECIMEN Ordering Facility: [facility] Address: [address] [place] [address] Performed By: #### 1 9123-9, #### [facility] CLIA [id number] [address] [place] [address] [place] Platelet mean volume (Bld) [Entitic vol] 8.6 fL Low 9.0-12.7 [facility] Comment on above: Order Comment: Speci men Type: BLOOD SPECIMEN Ordering Facility: [facility] Address: [address] [place] [address] Performed By: #### 1 9123-9, 04095-2 #### [facility] CLIA [id number] [address] [place] [address] [place] Platelets (Bld) [#/Vol] 235 10*3/uL Normal 150-400 [facility] Comment on above: Order Comment: Speci men Type: BLOOD SPECIMEN Ordering Facility: [facility] Address: [address] [place] [address] Performed By: #### 1 9123-9, 44354-5 #### [facility] CLIA [id number] [address] [place] [address] [place] RBC (Bld) [#/Vol] 4.52 10*6/uL Normal 4.20-6.00 [facility] Comment on above: Order Comment: Speci men Type: BLOOD SPECIMEN Ordering Facility: [facility] Address: [address] [place] [address] Performed By: #### 1 9123-9, 83122-9 #### [facility] CLIA [id number] [place] [address] [place] WBC (Bld) [#/Vol] 7.53 10*3/uL Normal 3.70-11.00 [facility] Comment on above: Order Comment: Speci men Type: BLOOD SPECIMEN Ordering Facility: [facility] Address: [address] [place] [address] Performed By: #### 1 9123-9, 50581-4 #### [facility] CLIA [id number] [address] [place] [id number] [place] ECHOon 10-25-2023 Echocardiography Echocardiography Report: Transthoracic Echo [facility] Date of service: 10/25/2023 2:47:07 PM Ordering physician: JUDI LOERA Indication: Chest Pain Symptom(s): Shortness of breath and Palpitations Technologist: Lizet Chacon [facility] Interpreting physician: Moisés Hassan MD [...] * * Final * * * CC [employer] [facility] : [id number] micsSISUID Normal [facility] Gas and Carbon monoxide pane l (BldV)on 10-25-2023 Base excess Calc (BldV) [Moles/Vol] 6 mmol/L High 0-2 [facility] Comment on above: Order Comment: Speci men Type: BLOOD SPECIMEN Ordering Facility: [facility] Address: [address] [place] [address] Performed By: #### P TTAC #### [facility] CLIA [id number] [address] [place] [address] [place] Body temperature 98.78 [degF] Normal [facility] Comment on above: Order Comment: Speci chapis Type: BLOOD SPECIMEN Ordering Facility: [facility] Address: [address] [place] [address] Performed By: #### P TTAC #### [facility] CLIA [id number] [address] [place] [address] [place] Calcium.ionized (Bld) [Mass/Vol] 1.15 mmol/L Normal 1.08-1.30 [facility] Comment on above: Order Comment: Speci men Type: BLOOD SPECIMEN Ordering Facility: [facility] Address: [address] [place] [address] Performed By: #### P TTAC #### [facility] CLIA [id number] [address] [place] [address] [place] Calcium.ionized adjusted to pH 7.4 (BldA) [Moles/Vol] 1.12 mmol/L Normal 1.08-1.30 [facility] Comment on above: Order Comment: Speci men Type: BLOOD SPECIMEN Ordering Facility: [facility] Address: [address] [place] [address] Performed By: #### P TTAC #### [facility] CLIA [id number] [address] [place] [address] [place] Carboxyhemoglobin (BldV) [Mass fraction] 2.7 % High 0.0-2.0 [facility] Comment on above: Order Comment: Speci men Type: BLOOD SPECIMEN Ordering Facility: [facility] Address: [address] [place] [address] Result Comment: Carb oxyhemoglobin Reference Range for Smokers: 2.0-8.0% Performed By: #### P TTAC #### [facility] CLIA [id number] [address] [place] [address] [place] Chloride [Moles/Vol] 105 mmol/L Normal 97-105 [facility] Comment on above: Order Comment: Speci men Type: BLOOD SPECIMEN Ordering Facility: [facility] Address: [address] [place] [address] Performed By: #### P TTAC #### [facility] CLIA [id number] [address] [place] [address] [place] CO2 (BldV) [Partial pressure] 61 mm[Hg] High 42-55 [facility] Comment on above: Order Comment: Speci men Type: BLOOD SPECIMEN Ordering Facility: [facility] Address: [address] [place] [address] Performed By: #### P TTAC #### [facility] CLIA [id number] [address] [place] [address] [place] CO2 adjusted to patient's actual temperature (BldV) [Partial pressure] Normal [facility] Comment on above: Order Comment: Speci men Type: BLOOD SPECIMEN Ordering Facility: [facility] Address: [address] [place] [address] Performed By: #### P TTAC #### [facility] CLIA [id number] [address] [place] [address] [place] FIO2 45 % Normal [facility] Comment on above: Order Comment: Speci men Type: BLOOD SPECIMEN Ordering Facility: [facility] Address: [address] [place] [address] Performed By: #### P TTAC #### [facility] CLIA [id number] [address] [place] [address] [place] Glucose [Mass/Vol] 152 mg/dL High 60-105 [facility] Comment on above: Order Comment: Speci men Type: BLOOD SPECIMEN Ordering Facility: [facility] Address: [address] [place] [address] Performed By: #### P TTAC #### [facility] CLIA [id number] [address] [place] [address] [place] HCO3 (Bld) [Moles/Vol] 33 mmol/L High 24-28 [facility] Comment on above: Order Comment: Speci men Type: BLOOD SPECIMEN Ordering Facility: [facility] Address: [address] [place] [address] Performed By: #### P TTAC #### [facility] CLIA [id number] [address] [place] [address] [place] Hematocrit (Bld) [Volume fraction] 38.3 % Low 39.0-51.0 [facility] Comment on above: Order Comment: Speci men Type: BLOOD SPECIMEN Ordering Facility: [facility] Address: [address] [place] [address] Performed By: #### P TTAC #### [facility] CLIA [id number] [address] [place] [address] [place] Hemoglobin (Bld) [Mass/Vol] 12.4 g/dL Low 13.0-17.0 [facility] Comment on above: Order Comment: Speci men Type: BLOOD SPECIMEN Ordering Facility: [facility] Address: [address] [place] [address] Performed By: #### P TTAC #### [facility] CLIA [id number] [address] [place] [address] [place] Lactate [Moles/Vol] 0.9 mmol/L Normal 0.5-2.2 [facility] Comment on above: Order Comment: Speci men Type: BLOOD SPECIMEN Ordering Facility: [facility] Address: [address] [place] [address] Performed By: #### P TTAC #### [facility] CLIA [id number] [address] [place] [address] [place] Methemoglobin (Bld) [Mass fraction] 1.2 % Normal 0.0-1.5 [facility] Comment on above: Order Comment: Speci men Type: BLOOD SPECIMEN Ordering Facility: [facility] Address: [address] [place] [address] Performed By: #### P TTAC #### [facility] CLIA [id number] [address] [place] [address] [place] O2 THERAPY Positive Normal [facility] Comment on above: Order Comment: Speci men Type: BLOOD SPECIMEN Ordering Facility: [facility] Address: [address] [place] [address] Performed By: #### P TTAC #### [facility] CLIA [id number] [address] [place] [address] [place] Oxygen (BldV) [Partial pressure] 107 mm[Hg] High 35-45 [facility] Comment on above: Order Comment: Speci men Type: BLOOD SPECIMEN Ordering Facility: [facility] Address: [address] [place] [address] Performed By: #### P TTAC #### [facility] CLIA [id number] [address] [place] [address] [place] Oxygen adjusted to patient's actual temperature (BldV) [Partial pressure] Normal [facility] Comment on above: Order Comment: Speci men Type: BLOOD SPECIMEN Ordering Facility: [facility] Address: [address] [place] [address] Performed By: #### P TTAC #### [facility] CLIA [id number] [address] [place] [address] [place] Oxygen saturation in Venous blood 98 % High 60-85 [facility] Comment on above: Order Comment: Speci men Type: BLOOD SPECIMEN Ordering Facility: [facility] Address: [address] [place] [address] Performed By: #### P TTAC #### [facility] CLIA [id number] [address] [place] [address] [place] Oxyhemoglobin (BldV) [Mass fraction] 94 % High 60-85 [facility] Comment on above: Order Comment: Speci men Type: BLOOD SPECIMEN Ordering Facility: [facility] Address: [address] [place] [address] Performed By: #### P TTAC #### [facility] CLIA [id number] [address] [place] [address] [place] pH (BldV) 7.35 [pH] Normal 7.32-7.42 [facility] Comment on above: Order Comment: Kentoni chapis Type: BLOOD SPECIMEN Ordering Facility: [facility] Address: [address] [place] [address] Performed By: #### P TTAC #### [facility] CLIA [id number] [address] [place] [address] pH adjusted to patient's actual temperature (BldV) Normal [facility] Comment on above: Order Comment: Kentoni men Type: BLOOD SPECIMEN Ordering Facility: [facility] Address: [address] [place] [address] Performed By: #### P TTAC #### [facility] CLIA [id number] [address] [place] [address] [place] Potassium [Moles/Vol] 4.1 mmol/L Normal 3.5-5.0 [facility] Comment on above: Order Comment: Kentoni chapis Type: BLOOD SPECIMEN Ordering Facility: [facility] Address: [address] [place] [address] Performed By: #### P TTAC #### [facility] CLIA [id number] [address] [place] [address] [place] Sodium [Moles/Vol] 140 mmol/L Normal 136-144 [facility] Comment on above: Order Comment: [place] Type: BLOOD SPECIMEN Ordering Facility: [facility] Address: [address] [place] [address] Performed By: #### P TTAC #### [facility] CLIA [id number] [address] [place] [address] [place] HISTORY PHYSICALon HISTORY PHYSICAL HNO ID: [id number] Author: ANUPAMA ALFRED MD Service: Critical Care Author Type: Nurse Practitioner Type: H&P Filed: 10/25/2023 03:12 Note Text: Attestation signed by Anupama Alfred MD at 10/25/2023 3:12 AM [facility] STAFF PHYSICIAN NOTE OF PERSONAL INVOLVEMENT IN [...] INSULIN 100 unit/mL (3 mL) pen inject 1518-20 PLUS ISS #2 (EXPECT DAILY DOSE OF [...] 40 Units subcutaneously daily at bedtime. sitaGLIPtin-metFORMIN (JANUMET) 50-1,000 mg per tablet Take [...] of brielle (more content not included)... Normal [facility] Lipid 1996 panelon 4 Cholesterol [Mass/Vol] 104 mg/dL Normal <200 [facility] Comment on above: Order Comment: [place] Type: BLOOD SPECIMEN Ordering Facility: [facility] Address: [address] [place] [address] Result Comment: <200 mg/dL, Desirable 200-239 mg/dL, Borderline high >239 mg/dL, High Performed By: #### 1 9123-9, 39447-1 #### [facility] CLIA [id number] [address] [place] [address] [place] Cholesterol in HDL [Mass/Vol] 61 mg/dL Normal >39 [facility] Comment on above: Order Comment: [place] Type: BLOOD SPECIMEN Ordering Facility: [facility] Address: [address] [place] [address] Result Comment: 40-5 9 mg/dL, Acceptable >59 mg/dL, High: Negative risk factor for coronary heart disease <40 mg/dL, Low: Positive risk factor for coronary heart disease Performed By: #### 1 9123-9, 33413-9 #### [facility] CLIA [id number] [place] [address] [place] Cholesterol in LDL [Mass/Vol] 33 mg/dL Normal <100 [facility] Comment on above: Order Comment: [place] Type: BLOOD SPECIMEN Ordering Facility: [facility] Address: [address] [place] [address] Result Comment: <100 mg/dL, Optimal 100-129 mg/dL, Near optimal/above optimal 130-159 mg/dL, Borderline high 160-189 mg/dL, High >189 mg/dL, Very high Secondary prevention optimal LDL Cholesterol levels are recommended to be < 70 mg/dL Performed By: #### 1 9123-9, 87099-7 #### [facility] CLIA [id number] [address] [place] [address] [place] Cholesterol in LDL/Cholesterol in HDL [Mass ratio] 0.54 {ratio} Normal <2.54 [facility] Comment on above: Order Comment: [place] Type: BLOOD SPECIMEN Ordering Facility: [facility] Address: [address] [place] [address] Result Comment: Refe rence: 1. National Cholesterol Education Program ATP III Guideline At-A-Glance Quick Desk Reference: National Heart, Lung, and Blood [place]. National Institutes of Health. 2001: NIH Publication No. 01-3305. 2. An International Atherosclerosis Society position paper: global recommendations for the management of dyslipidemia: executive summary, Atherosclerosis. 2014: 232(2):410-413. Performed By: #### 1 9123-9, 54921-7 #### [facility] CLIA [id number] [address] [place] [address] [place] Cholesterol in VLDL [Mass/Vol] 10 mg/dL Normal <30 [facility] Comment on above: Order Comment: [place] Type: BLOOD SPECIMEN Ordering Facility: [facility] Address: [address] [place] [address] Performed By: #### 1 9123-9, 78200-2 #### [facility] CLIA [id number] [address] [place] [address] [place] Cholesterol non HDL [Mass/Vol] 43 mg/dL Normal <130 [facility] Comment on above: Order Comment: [place] Type: BLOOD SPECIMEN Ordering Facility: [facility] Address: [address] [place] [address] Result Comment: <130 mg/dL, Optimal 130-159 mg/dL, Near optimal/above optimal 160-189 mg/dL, Borderline high 190-219 mg/dL, High >219 mg/dL, Very high Secondary prevention optimal non HDL Cholesterol levels are recommended to be <100 mg/dL Performed By: #### 1 9123-9, 38116-0 #### [facility] CLIA [id number] [address] [place] [address] [place] Cholesterol.total/Ch olesterol in HDL [Mass ratio] 1.70 {ratio} Normal <5.10 [facility] Comment on above: Order Comment: Speci men Type: BLOOD SPECIMEN Ordering Facility: [facility] Address: [address] [place] [address] Performed By: #### 1 9123-9, 41316-2 #### [facility] CLIA [id number] [address] [place] [address] FASTING TIME 12 hrs Normal [facility] Comment on above: Order Comment: Speci men Type: BLOOD SPECIMEN Ordering Facility: [facility] Address: [address] [place] [address] Performed By: #### 1 9123-9, 21650-1 #### [facility] CLIA [id number] [address] [place] [address] Triglyceride [Mass/Vol] 52 mg/dL Normal <150 [facility] Comment on above: Order Comment: Speci men Type: BLOOD SPECIMEN Ordering Facility: [facility] Address: [address] [place] [address] Result Comment: <150 mg/dL, Normal 150-199 mg/dL, Borderline high 200-499 mg/dL, High >499 mg/dL, Very high Performed By: #### 1 9123-9, 51881-9 #### [facility] CLIA [id number] [address] [place] [address] [place] Magnesium SerPl-mCncon 10-24 Magnesium [Mass/Vol] 2.0 mg/dL Normal 1.7-2.3 [facility] Comment on above: Order Comment: Speci men Type: BLOOD SPECIMEN Ordering Facility: [facility] Address: [address] [place] [address] Performed By: #### 1 9123-9, 86891-7 #### [facility] CLIA [id number] [address] [place] [address] [place] Renal function 2000 panelon 10-25-2023 Albumin [Mass/Vol] 3.4 g/dL Low 3.9-4.9 [facility] Comment on above: Order Comment: Speci men Type: BLOOD SPECIMEN Ordering Facility: [facility] Address: [address] [place] [address] Performed By: #### 1 9123-9, 40468-5 #### [facility] CLIA [id number] [address] [place] [address] [place] Anion gap [Moles/Vol] 10 mmol/L Normal 9-18 [facility] Comment on above: Order Comment: Speci men Type: BLOOD SPECIMEN Ordering Facility: [facility] Address: [address] [place] [address] Performed By: #### 1 9123-9, 89274-7 #### [facility] CLIA [id number] [address] [place] [address] [place] Calcium [Mass/Vol] 9.1 mg/dL Normal 8.5-10.2 [facility] Comment on above: Order Comment: Speci men Type: BLOOD SPECIMEN Ordering Facility: [facility] Address: [address] [place] [address] Performed By: #### 1 0523-9, 66555-3 #### [facility] CLIA [id number] [address] [place] [address] [place] Chloride [Moles/Vol] 102 mmol/L Normal 97-105 [facility] Comment on above: Order Comment: Speci men Type: BLOOD SPECIMEN Ordering Facility: [facility] Address: [address] [place] [address] Performed By: #### 1 23-9, 76883-8 #### [facility] CLIA [id number] [address] [place] [address] [place] CO2 [Moles/Vol] 31 mmol/L High 22-30 [facility] Comment on above: Order Comment: Speci men Type: BLOOD SPECIMEN Ordering Facility: [facility] Address: [address] [place] [address] Performed By: #### 1 2823-9, 62788-2 #### [facility] CLIA [id number] [address] [place] [address] [place] Creatinine [Mass/Vol] 1.89 mg/dL High 0.73-1.22 [facility] Comment on above: Order Comment: [place] Type: BLOOD SPECIMEN Ordering Facility: [facility] Address: [address] [place] [address] Performed By: #### 1 9123-9, 29427-5 #### [facility] CLIA [id number] [address] [place] [address] [place] Creatinine and Glomerular filtration rate.predicted panel (S/P/Bld) 39 mL/min/1.73m??? Low >=60 [facility] Comment on above: Order Comment: [place] Type: BLOOD SPECIMEN Ordering Facility: [facility] Address: [address] [place] [address] Result Comment: Meredith mated Glomerular Filtration Rate [...] actual GFR. Performed By: #### 1 9123-9, 78350-9 #### [facility] CLIA [id number] [place] [address] [place] Glucose [Mass/Vol] 149 mg/dL High 74-99 [facility] Comment on above: Order Comment: [place] Type: BLOOD SPECIMEN Ordering Facility: [facility] Address: [address] [place] [address] Result Comment: The [place] Diabetes Association (ADA) provides guidance for cutoff [...] Standards of Medical Care in Diabetes 2016, [place] [employer]. Diabetes Care. 2016.39(Suppl 1). Performed By: #### 1 23-9, 12873-9 #### [facility] CLIA [id number] [address] [place] [address] [place] Phosphate [Mass/Vol] 4.4 mg/dL Normal 2.7-4.8 [facility] Comment on above: Order Comment: Speci men Type: BLOOD SPECIMEN Ordering Facility: [facility] Address: [address] [place] [address] Performed By: #### 1 9, 77423-6 #### [facility] CLIA [id number] [address] [place] [address] [place] Potassium [Moles/Vol] 4.3 mmol/L Normal 3.7-5.1 [facility] Comment on above: Order Comment: Speci men Type: BLOOD SPECIMEN Ordering Facility: [facility] Address: [address] [place] [address] Performed By: #### 1 9, 53464-5 #### [facility] CLIA [id number] [address] [place] [address] [place] Sodium [Moles/Vol] 143 mmol/L Normal 136-144 [facility] Comment on above: Order Comment: Speci men Type: BLOOD SPECIMEN Ordering Facility: [facility] Address: [address] [place] [address] Performed By: #### 1 9123-04, 28408-8 #### [facility] CLIA [id number] [address] [place] [address] [place] Urea nitrogen [Mass/Vol] 54 mg/dL High 9-24 [facility] Comment on above: Order Comment: Speci men Type: BLOOD SPECIMEN Ordering Facility: [facility] Address: [address] [place] [address] Performed By: #### 1 9123-9, 17022-5 #### [facility] CLIA [id number] [address] [place] [address] [place] STAPH AUREUS PCRon S. aureus and MRSA panel ERIBERTO+probe (Nose) Normal Negative [facility] Comment on above: Order Comment: Speci men Type: SWAB OF INTERNAL NOSEOrdering Facility: [facility] Address: [address] [place] [address] Result Comment: Nega tive for Staphylococcus aureus by PCR. Negative for MRSA by PCR Performed By: #### S APCR ####[facility] [id number] [facility] [address] [place] XR CHEST 1V FRONTALon [...] left pleural effusion demonstrating slight interval progression. Licensed Optical Dispenser: [facility] Transcribe Date/Time: Oct 25 2023 7:29A Dictated by : KASHIF PIERSON MD This examination was interpreted and the report reviewed and electronically signed by: KASHIF PIERSON MD on Oct 25 2023 7:30AM EST [id number] Normal [facility] ALLIED HEALTHon 10-24-2023 ALLIED HEALTH HNO ID: [id number] Author: ABDIFATAH PAGE RDMS Service: Radiology Author [...] PATIENT PRESENTS WITH AN IMPLANTABLE OR ATTACHED WAREHOUSE GENERAL LABORER: No RADIOLOGY DEPARTMENT: Ultrasound PERIPHERAL IV DATA: Not applicable SIGNED BY: Abdifatah Page RDMS October 24, 2023 4:59 PM Normal [facility] ARTERIAL BLOOD GASESon 10-23 Base excess Calc (Bld) [Moles/Vol] 6 mmol/L High 0-2 [facility] Comment on above: Order Comment: [place] Type: BLOOD SPECIMEN Ordering Facility: [facility] Address: [address] [place] [address] Performed By: #### 1 9123-9, 17272-4 #### [facility] CLIA [id number] [address] [place] [address] [place] Body temperature 98.6 [degF] Normal [facility] Comment on above: Order Comment: [place] Type: BLOOD SPECIMEN Ordering Facility: [facility] Address: [address] [place] [address] Performed By: #### 1 9123-9, 33686-5 #### [facility] CLIA [id number] [address] [place] [address] [place] Calcium.ionized (Bld) [Mass/Vol] 1.23 mmol/L Normal 1.08-1.30 [facility] Comment on above: Order Comment: [place] Type: BLOOD SPECIMEN Ordering Facility: [facility] Address: [address] [place] [address] Performed By: #### 1 9123-9, 57667-4 #### [facility] CLIA [id number] [address] [place] [address] [place] Calcium.ionized adjusted to pH 7.4 (BldA) [Moles/Vol] 1.16 mmol/L Normal 1.08-1.30 [facility] Comment on above: Order Comment: Speci men Type: BLOOD SPECIMEN Ordering Facility: [facility] Address: [address] [place] [address] Performed By: #### 1 9123-9, #### [facility] CLIA [id number] [address] [place] [address] [place] Carboxyhemoglobin (BldA) [Mass fraction] 1.3 % Normal 0.0-2.0 [facility] Comment on above: Order Comment: Speci men Type: BLOOD SPECIMEN Ordering Facility: [facility] Address: [address] [place] [address] Result Comment: Carb oxyhemoglobin Reference Range for Smokers: 2.0-8.0% Performed By: #### 1 9123-9, 08585-7 #### [facility] CLIA [id number] [address] [place] [address] [place] Chloride [Moles/Vol] 104 mmol/L Normal 97-105 [facility] Comment on above: Order Comment: Speci men Type: BLOOD SPECIMEN Ordering Facility: [facility] Address: [address] [place] [address] Performed By: #### 1 91239, 43010-1 #### [facility] CLIA [id number] [address] [place] [address] [place] CO2 (Bld) [Partial pressure] 72 mm Hg High 36-46 [facility] Comment on above: Order Comment: Speci men Type: BLOOD SPECIMEN Ordering Facility: [facility] Address: [address] [place] [address] Performed By: #### 1 9123-9, 29556-7 #### [facility] CLIA [id number] [address] [place] [address] [place] Glucose [Mass/Vol] 88 mg/dL Normal 60-105 [facility] Comment on above: Order Comment: Speci men Type: BLOOD SPECIMEN Ordering Facility: [facility] Address: [address] [place] [address] Performed By: #### 1 9123-9, 42369-7 #### [facility] CLIA [id number] [address] [place] [address] [place] HCO3 (Bld) [Moles/Vol] 34 mmol/L High 22-26 [facility] Comment on above: Order Comment: Speci men Type: BLOOD SPECIMEN Ordering Facility: [facility] Address: [address] [place] [address] Performed By: #### 1 9123-9, 55924-5 #### [facility] CLIA [id number] [address] [place] [address] [place] Hematocrit (Bld) [Volume fraction] 38.4 % Low 39.0-51.0 [facility] Comment on above: Order Comment: Speci men Type: BLOOD SPECIMEN Ordering Facility: [facility] Address: [address] [place] [address] Performed By: #### 1 9123-9, 14677-3 #### [facility] CLIA [id number] [address] [place] [address] [place] Hemoglobin (Bld) [Mass/Vol] 12.5 g/dL Low 13.0-17.0 [facility] Comment on above: Order Comment: Speci men Type: BLOOD SPECIMEN Ordering Facility: [facility] Address: [address] [place] [address] Performed By: #### 1 9123-9, 87661-9 #### [facility] CLIA [id number] [address] [place] [address] [place] Lactate [Moles/Vol] 0.9 mmol/L Normal 0.5-2.2 [facility] Comment on above: Order Comment: Speci men Type: BLOOD SPECIMEN Ordering Facility: [facility] Address: [address] [place] [address] Performed By: #### 1 9123-9, 86701-4 #### [facility] CLIA [id number] [address] [place] [address] [place] LITERS 4 Liters/min Normal [facility] Comment on above: Order Comment: Speci men Type: BLOOD SPECIMEN Ordering Facility: [facility] Address: [address] [place] [address] Performed By: #### 1 9123-9, 77927-5 #### [facility] CLIA [id number] [address] [place] [address] [place] Methemoglobin (Bld) [Mass fraction] 1.3 % Normal 0.0-1.5 [facility] Comment on above: Order Comment: Speci men Type: BLOOD SPECIMEN Ordering Facility: [facility] Address: [address] [place] [address] Performed By: #### 1 9123-9, 39548-9 #### [facility] CLIA [id number] [address] [place] [address] [place] O2 THERAPY NC = Nasal Cannula Normal [facility] Comment on above: Order Comment: Speci men Type: BLOOD SPECIMEN Ordering Facility: [facility] Address: [address] [place] [address] Performed By: #### 1 91239, #### [facility] CLIA [id number] [address] [place] [address] [place] Oxygen (Bld) [Partial pressure] 73 mm Hg Low 85-95 [facility] Comment on above: Order Comment: Speci men Type: BLOOD SPECIMEN Ordering Facility: [facility] Address: [address] [place] [address] Performed By: #### 1 9123-9, #### [facility] CLIA [id number] [address] [place] [address] [place] Oxyhemoglobin (BldA) [Mass fraction] 91 % Low 95-98 [facility] Comment on above: Order Comment: Speci men Type: BLOOD SPECIMEN Ordering Facility: [facility] Address: [address] [place] [address] Performed By: #### 1 9123-9, 63153-1 #### [facility] CLIA [id number] [address] [place] [address] [place] pH (Bld) 7.30 [pH] Low 7.35-7.45 [facility] Comment on above: Order Comment: Speci men Type: BLOOD SPECIMEN Ordering Facility: [facility] Address: [address] [place] [address] Performed By: #### 1 9123-9, 38412-5 #### [facility] CLIA [id number] [address] [place] [address] [place] Potassium [Moles/Vol] 4.2 mmol/L Normal 3.5-5.0 [facility] Comment on above: Order Comment: Speci men Type: BLOOD SPECIMEN Ordering Facility: [facility] Address: [address] [place] [address] Performed By: #### 1 9123-9, 62681-6 #### [facility] CLIA [id number] [address] [place] [address] [place] Sodium [Moles/Vol] 141 mmol/L Normal 136-144 [facility] Comment on above: Order Comment: Speci men Type: BLOOD SPECIMEN Ordering Facility: [facility] Address: [address] [place] [address] Performed By: #### 1 9123-9, 54147-9 #### [facility] CLIA [id number] [address] [place] [address] [place] Base excess Calc (Bld) [Moles/Vol] 5 mmol/L High 0-2 [facility] Comment on above: Order Comment: Speci men Type: BLOOD SPECIMEN Ordering Facility: [facility] Address: [address] [place] [address] Performed By: #### P TTAC #### [facility] CLIA [id number] [address] [place] [address] [place] Body temperature 98.6 [degF] Normal [facility] Comment on above: Order Comment: Speci men Type: BLOOD SPECIMEN Ordering Facility: [facility] Address: [address] [place] [address] Performed By: #### P TTAC #### [facility] CLIA [id number] [address] [place] [address] [place] Calcium.ionized (Bld) [Mass/Vol] 1.22 mmol/L Normal 1.08-1.30 [facility] Comment on above: Order Comment: Speci men Type: BLOOD SPECIMEN Ordering Facility: [facility] Address: [address] [place] [address] Performed By: #### P TTAC #### [facility] CLIA [id number] [address] [place] [address] [place] Calcium.ionized adjusted to pH 7.4 (BldA) [Moles/Vol] 1.15 mmol/L Normal 1.08-1.30 [facility] Comment on above: Order Comment: Speci men Type: BLOOD SPECIMEN Ordering Facility: [facility] Address: [address] [place] [address] Performed By: #### P TTAC #### [facility] CLIA [id number] [address] [place] [address] [place] Carboxyhemoglobin (BldA) [Mass fraction] 1.7 % Normal 0.0-2.0 [facility] Comment on above: Order Comment: Speci men Type: BLOOD SPECIMEN Ordering Facility: [facility] Address: [address] [place] [address] Result Comment: Carb oxyhemoglobin Reference Range for Smokers: 2.0-8.0% Performed By: #### P TTAC #### [facility] CLIA [id number] [address] [place] [address] [place] Chloride [Moles/Vol] 101 mmol/L Normal 97-105 [facility] Comment on above: Order Comment: Speci men Type: BLOOD SPECIMEN Ordering Facility: [facility] Address: [address] [place] [address] Performed By: #### P TTAC #### [facility] CLIA [id number] [address] [place] [address] [place] CO2 (Bld) [Partial pressure] 70 mm Hg High 36-46 [facility] Comment on above: Order Comment: Speci men Type: BLOOD SPECIMEN Ordering Facility: [facility] Address: [address] [place] [address] Performed By: #### P TTAC #### [facility] CLIA [id number] [place] [address] [place] Glucose [Mass/Vol] 210 mg/dL High 60-105 [facility] Comment on above: Order Comment: Speci men Type: BLOOD SPECIMEN Ordering Facility: [facility] Address: [address] [place] [address] Performed By: #### P TTAC #### [facility] CLIA [id number] [address] [place] [address] [place] HCO3 (Bld) [Moles/Vol] 34 mmol/L High 22-26 [facility] Comment on above: Order Comment: Speci men Type: BLOOD SPECIMEN Ordering Facility: [facility] Address: [address] [place] [address] Performed By: #### P TTAC #### [facility] CLIA [id number] [address] [place] [address] [place] Hematocrit (Bld) [Volume fraction] 37.5 % Low 39.0-51.0 [facility] Comment on above: Order Comment: Speci men Type: BLOOD SPECIMEN Ordering Facility: [facility] Address: [address] [place] [address] Performed By: #### P TTAC #### [facility] CLIA [id number] [address] [place] [address] [place] Hemoglobin (Bld) [Mass/Vol] 12.2 g/dL Low 13.0-17.0 [facility] Comment on above: Order Comment: Speci men Type: BLOOD SPECIMEN Ordering Facility: [facility] Address: [address] [place] [address] Performed By: #### P TTAC #### [facility] CLIA [id number] [address] [place] [address] [place] Lactate [Moles/Vol] 1.4 mmol/L Normal 0.5-2.2 [facility] Comment on above: Order Comment: Speci men Type: BLOOD SPECIMEN Ordering Facility: [facility] Address: [address] [place] [address] Performed By: #### P TTAC #### [facility] CLIA [id number] [address] [place] [address] [place] LITERS 6 Liters/min Normal [facility] Comment on above: Order Comment: Speci men Type: BLOOD SPECIMEN Ordering Facility: [facility] Address: [address] [place] [address] Performed By: #### P TTAC #### [facility] CLIA [id number] [address] [place] [address] [place] Methemoglobin (Bld) [Mass fraction] 0.7 % Normal 0.0-1.5 [facility] Comment on above: Order Comment: Speci men Type: BLOOD SPECIMEN Ordering Facility: [facility] Address: [address] [place] [address] Performed By: #### P TTAC #### [facility] CLIA [id number] [address] [place] [address] [place] O2 THERAPY NC = Nasal Cannula Normal [facility] Comment on above: Order Comment: Speci men Type: BLOOD SPECIMEN Ordering Facility: [facility] Address: [address] [place] [address] Performed By: #### P TTAC #### [facility] CLIA [id number] [address] [place] [address] [place] Oxygen (Bld) [Partial pressure] 85 mm Hg Normal 85-95 [facility] Comment on above: Order Comment: Speci men Type: BLOOD SPECIMEN Ordering Facility: [facility] Address: [address] [place] [address] Performed By: #### P TTAC #### [facility] CLIA [id number] [address] [place] [address] [place] Oxyhemoglobin (BldA) [Mass fraction] 94 % Low 95-98 [facility] Comment on above: Order Comment: Speci men Type: BLOOD SPECIMEN Ordering Facility: [facility] Address: [address] [place] [address] Performed By: #### P TTAC #### [facility] CLIA [id number] [address] [place] [address] [place] pH (Bld) 7.30 [pH] Low 7.35-7.45 [facility] Comment on above: Order Comment: Speci men Type: BLOOD SPECIMEN Ordering Facility: [facility] Address: [address] [place] [address] Performed By: #### P TTAC #### [facility] CLIA [id number] [address] [place] [address] [place] [facility] Potassium [Moles/Vol] 4.0 mmol/L Normal 3.5-5.0 [facility] Comment on above: Order Comment: Speci men Type: BLOOD SPECIMEN Ordering Facility: [facility] Address: [address] [place] [address] Performed By: #### P TTAC #### [facility] CLIA [id number] [address] [place] [address] [place] Sodium [Moles/Vol] 141 mmol/L Normal 136-144 [facility] Comment on above: Order Comment: Speci men Type: BLOOD SPECIMEN Ordering Facility: [facility] Address: [address] [place] [address] Performed By: #### P TTAC #### [facility] CLIA [id number] [address] [place] [address] [place] Bacteria Ur Culton [...] technique or straight catheterization for???urine???collect ion. Normal [facility] Comment on above: Performed By: #### 6 30-4 ####[facility] [id number] [place] [address] [place] Basic metabolic 2000 panelon 10-24-2023 Anion gap [Moles/Vol] 11 mmol/L Normal 9-18 [facility] Comment on above: Order Comment: Speci men Type: BLOOD SPECIMEN Ordering Facility: [facility] Address: [address] [place] [address] Performed By: #### 2 4321-2, HSTNT #### [facility] CLIA [id number] [address] [place], [place] [address] [place] Calcium [Mass/Vol] 8.7 mg/dL Normal 8.5-10.2 [facility] Comment on above: Order Comment: Speci men Type: BLOOD SPECIMEN Ordering Facility: [facility] Address: [facility] [place] [address] Performed By: #### 2 4321-2, HSTNT #### [facility] CLIA [id number] [address] [place] [address] [place] Chloride [Moles/Vol] 101 mmol/L Normal 97-105 [facility] Comment on above: Order Comment: Speci men Type: BLOOD SPECIMEN Ordering Facility: [facility] Address: [address] [place] [address] Performed By: #### 2 4321-2, HSTNT #### [facility] CLIA [id number] [address] [place] [address] [place] CO2 [Moles/Vol] 30 mmol/L Normal 22-30 [facility] Comment on above: Order Comment: Speci men Type: BLOOD SPECIMEN Ordering Facility: [facility] Address: [address] [place] [address] Performed By: #### 2 4321-2, HSTNT #### [facility] CLIA [id number] [address] [place] [address] [place] Creatinine [Mass/Vol] 1.82 mg/dL High 0.73-1.22 [facility] Comment on above: Order Comment: Speci men Type: BLOOD SPECIMEN Ordering Facility: [facility] Address: [address] [place] [address] Performed By: #### 2 4321-2, HSTNT #### [facility] CLIA [id number] [address] [place] [address] [place] Creatinine and Glomerular filtration rate.predicted panel (S/P/Bld) 41 mL/min/1.73m??? Low >=60 [facility] Comment on above: Order Comment: [place] Type: BLOOD SPECIMEN Ordering Facility: [facility] Address: [address] [place] [address] Result Comment: Meredith mated Glomerular Filtration Rate [...] Performed By: #### 2 4321-2, HSTNT #### [facility] CLIA [id number] [place] [address] [place] Glucose [Mass/Vol] 229 mg/dL High 74-99 [facility] Comment on above: Order Comment: [place] Type: BLOOD SPECIMEN Ordering Facility: [facility] Address: [address] [place] [address] Result Comment: The [place] [employer] (ADA) provides guidance for cutoff [...] Standards of Medical Care in Diabetes 2016, [place] [employer]. Diabetes Care. 2016.39(Suppl 1). Performed By: #### 2 4321-2, HSTNT #### [facility] CLIA [id number] [place] [address] [place] Potassium [Moles/Vol] 4.2 mmol/L Normal 3.7-5.1 [facility] Comment on above: Order Comment: [place] Type: BLOOD SPECIMEN Ordering Facility: [facility] Address: [address] [place] [address] Performed By: #### 2 4321-2, HSTNT #### [facility] CLIA [id number] [address] [place] [address] [place] Sodium [Moles/Vol] 142 mmol/L Normal 136-144 [facility] Comment on above: Order Comment: Speci men Type: BLOOD SPECIMEN Ordering Facility: [facility] Address: [address] [place] [address] Performed By: #### 2 4321-2, HSTNT #### [facility] CLIA [id number] [address] [place] [address] [place] Urea nitrogen [Mass/Vol] 58 mg/dL High 9-24 [facility] Comment on above: Order Comment: Speci men Type: BLOOD SPECIMEN Ordering Facility: [facility] Address: [address] [place] [address] Performed By: #### 2 4321-2, HSTNT #### [facility] CLIA [id number] [address] [place] [address] [place] CBC panel Auto (Bld)on 10-23 Erythrocyte distribution width (RBC) [Ratio] 16.4 % High 11.5-15.0 [facility] Comment on above: Order Comment: Speci men Type: BLOOD SPECIMEN Ordering Facility: [facility] Address: [address] [place] [address] Performed By: #### 1 9123-9, 99396-3 #### [facility] CLIA [id number] [address] [place] [address] [place] Hematocrit (Bld) [Volume fraction] 41.0 % Normal 39.0-51.0 [facility] Comment on above: Order Comment: Speci men Type: BLOOD SPECIMEN Ordering Facility: [facility] Address: [address] [place] [address] Performed By: #### 1 9123-9, 35650-0 #### [facility] CLIA [id number] [address] [place] [address] [place] Hemoglobin (Bld) [Mass/Vol] 12.4 g/dL Low 13.0-17.0 [facility] Comment on above: Order Comment: Speci men Type: BLOOD SPECIMEN Ordering Facility: [facility] Address: [address] [place] [address] Performed By: #### 1 9123-04, #### [facility] CLIA [id number] [address] [place] [address] [facility] MCH (RBC) [Entitic mass] 26.9 pg Normal 26.0-34.0 [facility] Comment on above: Order Comment: Speci men Type: BLOOD SPECIMEN Ordering Facility: [facility] Address: [address] [place] [address] Performed By: #### 1 9123-04, #### [facility] CLIA [id number] [address] [place] [address] [place] MCHC (RBC) [Mass/Vol] 30.2 g/dL Low 30.5-36.0 [facility] Comment on above: Order Comment: Speci men Type: BLOOD SPECIMEN Ordering Facility: [facility] Address: [address] [place] [address] Performed By: #### 1 9, #### [facility] CLIA [id number] [address] [place] [address] [place] MCV (RBC) [Entitic vol] 88.9 fL Normal 80.0-100.0 [facility] Comment on above: Order Comment: Speci men Type: BLOOD SPECIMEN Ordering Facility: [facility] Address: [address] [place] [address] Performed By: #### 1 9123-04, #### [facility] CLIA [id number] [address] [place] [address] [place] Nucleated RBC (Bld) [#/Vol] 10*3/uL Normal <0.01 [facility] Comment on above: Order Comment: Speci men Type: BLOOD SPECIMEN Ordering Facility: [facility] Address: [address] [place] [address] Performed By: #### 1 23, 06083-8 #### [facility] CLIA [id number] [address] [place] [address] [place] Platelet mean volume (Bld) [Entitic vol] 8.8 fL Low 9.0-12.7 [facility] Comment on above: Order Comment: Speci men Type: BLOOD SPECIMEN Ordering Facility: [facility] Address: [address] [place] [address] Performed By: #### 1 9123-9, 41614-9 #### [facility] CLIA [id number] [address] [place] [address] [place] Platelets (Bld) [#/Vol] 240 10*3/uL Normal 150-400 [facility] Comment on above: Order Comment: Speci men Type: BLOOD SPECIMEN Ordering Facility: [facility] Address: [address] [place] [address] Performed By: #### 1 9123-9, 60165-1 #### [facility] CLIA [id number] [address] [place] [address] [place] RBC (Bld) [#/Vol] 4.61 10*6/uL Normal 4.20-6.00 [facility] Comment on above: Order Comment: Speci men Type: BLOOD SPECIMEN Ordering Facility: [facility] Address: [address] [place] [address] Performed By: #### 1 9123-9, 59319-3 #### [facility] CLIA [id number] [address] [place] [address] [place] WBC (Bld) [#/Vol] 7.15 10*3/uL Normal 3.70-11.00 [facility] Comment on above: Order Comment: Speci men Type: BLOOD SPECIMEN Ordering Facility: [facility] Address: [address] [place] [address] Performed By: #### 1 9123-9, 40095-6 #### [facility] CLIA [id number] [address] [place] [address] [place] CONSULTon 10-24-2023 CONSULT HNO ID: [id number] Author: NAUN COUCH MD Service: Nephrology Author [...] amputation admitted from home who presented to [facility] with complaints of worsening shortness of breath, bilateral lower extremity edema and ~ 10lb weight gain in the last few weeks. Patient reports multiple hospital admissions in 2023 at [facility] in [place] for fluid overload. He states he usually [...] MEALS AND HS (more content not included)... [facility] CONSULT HNO ID: [id number] Author: FLOR BE RN Service: ? Author [...] foot. Patient goes to wound clinic in [place] for care last dressing used was Temi. [...] 10/24/2023 9:38 AM Wound Image Site Assessment Red;Morse Nora-Wound Assessment Calloused Shape oval Wound Length [...] Review under the Scanned Docs tab in [employer]. The purpose of the photo(s) is to optimize the patient's medical care and allow (more content not included)... Normal [facility] CONSULT HNO ID: [id number] Author: NERY MOTTA MD Service: Cardiovascular Medicine Author Type: Physician Type: Consults Filed: 10/24/2023 17:43 Note Text: [facility] CARDI[facility]ASCULAR [facility]ICINE CONSULT NOTE (Template ID [id number]) Nicole Lora [id number] PRIMARY SERVICE: Internal Medicine CONSULTING SERVICE: Cardiovascular Medicine: General Consults DATE OF ADMISSION: 10/23/2023 DATE OF CONSULT: 10/24/2023 REASON FOR CONSULT Elevated troponins HISTORY OF PRESENT ILLNESS Nicole Lora is a 63 year old male PMH of CKD 3, chronic respiratory failure, morbid obesity, insulin dependent diabetes, TC, Asthma, left forefoot amputation, lives in [place], who was admitted for volume overload. He [...] metFORMIN 500 m (more content not included)... [facility] CONSULT PROGon 10-24-2023 CONSULT PROG HNO ID: [id number] Author: JOSE HARMON RPh Service: Pharmacy Author [...] have any questions, please contact pharmacy at [phone]. Estimated Creatinine Clearance: 60.4 mL/min (A) (based [...] 10/23/2023 180.3 cm (5' 11 ) Jose Mcbryce [facility] October 24, 2023 3:09 AM Normal [facility] Chloride ?Tm Ur-sCncon 10-23 Chloride Unsp time (U) [Moles/Vol] 61 mmol/L Normal 16-250 [facility] Comment on above: Order Comment: [place] Type: BLOOD SPECIMEN Ordering Facility: [facility] Address: [address] [place] [address] Performed By: #### 1 9123-9, 75250-5 #### [facility] CLIA [id number] [address] [place] [address] [place] D dimer FEU PPP-mCncon 10-23 Fibrin D-dimer FEU (PPP) [Mass/Vol] 2400 ng/mL FEU High <500 [facility] Comment on above: Order Comment: [place] Type: BLOOD SPECIMENOrdering Facility: [facility] Address: [address] [place] [address] Performed By: #### 4 8065-7, 81348-3, PTTAC ####[facility] [id number] [place] [address] [place] Fibrin D-dimer FEU (PPP) [Ma ss/Vol]on 10-24-2023 D DIMER AGE-RELATED CUTOFF 640 ng/mL FEU Normal [facility] Comment on above: Order Comment: Speci men Type: BLOOD SPECIMENOrdering Facility: [facility] Address: [address] [place] [address] Performed By: #### 4 8065-7, 79812-3, PTTAC ####[facility] [id number] [place] [address] [place] Gas and Carbon monoxide pane l (BldV)on 10-24-2023 Base excess Calc (BldV) [Moles/Vol] 4 mmol/L High 0-2 [facility] Comment on above: Order Comment: Speci men Type: BLOOD SPECIMEN Ordering Facility: [facility] Address: [address] [place] [address] Performed By: #### 1 9123-9, 92494-0 #### [facility] CLIA [id number] [address] [place] [address] [place] Body temperature 32 [degF] Normal [facility] Comment on above: Order Comment: Speci men Type: BLOOD SPECIMEN Ordering Facility: [facility] Address: [address] [place] [address] Performed By: #### 1 9123-9, 73875-5 #### [facility] CLIA [id number] [address] [place] [address] [place] [place] Calcium.ionized (Bld) [Mass/Vol] 1.14 mmol/L Normal 1.08-1.30 [facility] Comment on above: Order Comment: Speci men Type: BLOOD SPECIMEN Ordering Facility: [facility] Address: [address] [place] [address] Performed By: #### 1 9123-9, 41405-9 #### [facility] CLIA [id number] [place] [address] [place] Calcium.ionized adjusted to pH 7.4 (BldA) [Moles/Vol] 1.08 mmol/L Normal 1.08-1.30 [facility] Comment on above: Order Comment: Speci men Type: BLOOD SPECIMEN Ordering Facility: [facility] Address: [address] [place] [address] Performed By: #### 1 9123-9, 03173-5 #### [facility] CLIA [id number] [address] [place] [address] [place] Carboxyhemoglobin (BldV) [Mass fraction] 2.3 % High 0.0-2.0 [facility] Comment on above: Order Comment: Speci men Type: BLOOD SPECIMEN Ordering Facility: [facility] Address: [address] [place] [address] Result Comment: Carb oxyhemoglobin Reference Range for Smokers: 2.0-8.0% Performed By: #### 1 9123-9, 15799-7 #### [facility] CLIA [id number] [address] [place] [address] [place] Chloride [Moles/Vol] 103 mmol/L Normal 97-105 [facility] Comment on above: Order Comment: Speci men Type: BLOOD SPECIMEN Ordering Facility: [facility] Address: [address] [place] [address] Performed By: #### 1 9123-9, 06355-9 #### [facility] CLIA [id number] [address] [place] [address] [place] CO2 (BldV) [Partial pressure] 66 mm[Hg] High 42-55 [facility] Comment on above: Order Comment: Speci men Type: BLOOD SPECIMEN Ordering Facility: [facility] Address: [address] [place] [address] Performed By: #### 1 9123-9, 65271-3 #### [facility] CLIA [id number] [address] [place] [address] [place] CO2 adjusted to patient's actual temperature (BldV) [Partial pressure] Normal [facility] Comment on above: Order Comment: Speci men Type: BLOOD SPECIMEN Ordering Facility: [facility] Address: [address] [place] [address] Performed By: #### 1 9123-9, 50033-0 #### [facility] CLIA [id number] [address] [place] [address] [place] Glucose [Mass/Vol] 222 mg/dL High 60-105 [facility] Comment on above: Order Comment: Speci men Type: BLOOD SPECIMEN Ordering Facility: [facility] Address: [address] [place] [address] Performed By: #### 1 9123-9, 49587-8 #### [facility] CLIA [id number] [address] [place] [address] [place] HCO3 (Bld) [Moles/Vol] 31 mmol/L High 24-28 [facility] Comment on above: Order Comment: Speci men Type: BLOOD SPECIMEN Ordering Facility: [facility] Address: [address] [place] [address] Performed By: #### 1 9123-9, 67437-5 #### [facility] CLIA [id number] [address] [place] [address] [place] Hematocrit (Bld) [Volume fraction] 38.5 % Low 39.0-51.0 [facility] Comment on above: Order Comment: Speci men Type: BLOOD SPECIMEN Ordering Facility: [facility] Address: [address] [place] [address] Performed By: #### 1 9123-9, 12036-3 #### [facility] CLIA [id number] [address] [place] [address] [place] Hemoglobin (Bld) [Mass/Vol] 12.5 g/dL Low 13.0-17.0 [facility] Comment on above: Order Comment: Speci men Type: BLOOD SPECIMEN Ordering Facility: [facility] Address: [address] [place] [address] Performed By: #### 1 9123-9, 49076-0 #### [facility] CLIA [id number] [address] [place] [address] [place] Lactate [Moles/Vol] 0.7 mmol/L Normal 0.5-2.2 [facility] Comment on above: Order Comment: Speci men Type: BLOOD SPECIMEN Ordering Facility: [facility] Address: [address] [place] [address] Performed By: #### 1 239, 36615-0 #### [facility] CLIA [id number] [address] [place] [address] [place] Methemoglobin (Bld) [Mass fraction] 0.6 % Normal 0.0-1.5 [facility] Comment on above: Order Comment: Speci men Type: BLOOD SPECIMEN Ordering Facility: [facility] Address: [address] [place] [address] Performed By: #### 1 9123-04, 47655-2 #### [facility] CLIA [id number] [address] [place] [address] [place] O2 THERAPY RA=Room Air Normal [facility] Comment on above: Order Comment: Speci men Type: BLOOD SPECIMEN Ordering Facility: [facility] Address: [address] [place] [address] Performed By: #### 1 23, 61443-9 #### [facility] CLIA [id number] [address] [place] [address] [place] Oxygen (BldV) [Partial pressure] 176 mm[Hg] High 35-45 [facility] Comment on above: Order Comment: Speci men Type: BLOOD SPECIMEN Ordering Facility: [facility] Address: [address] [place] [address] Performed By: #### 1 23, #### [facility] CLIA [id number] [address] [place] [address] [place] Oxygen adjusted to patient's actual temperature (BldV) [Partial pressure] Normal [facility] Comment on above: Order Comment: Speci men Type: BLOOD SPECIMEN Ordering Facility: [facility] Address: [address] [place] [address] Performed By: #### 1 23-9, 34592-3 #### [facility] CLIA [id number] [address] [place] [address] [place] Oxygen saturation in Venous blood 99 % High 60-85 [facility] Comment on above: Order Comment: Speci men Type: BLOOD SPECIMEN Ordering Facility: [facility] Address: [facility] [place] [address] Performed By: #### 1 23-9, 27001-1 #### [facility] CLIA [id number] [address] [place] [address] [place] Oxyhemoglobin (BldV) [Mass fraction] 96 % High 60-85 [facility] Comment on above: Order Comment: Speci men Type: BLOOD SPECIMEN Ordering Facility: [facility] Address: [address] [place] [address] Performed By: #### 1 239, 43044-3 #### [facility] CLIA [id number] [address] [place] [address] [place] pH (BldV) 7.30 [pH] Low 7.32-7.42 [facility] Comment on above: Order Comment: Speci men Type: BLOOD SPECIMEN Ordering Facility: [facility] Address: [address] [place] [address] Performed By: #### 1 23-9, 84436-0 #### [facility] CLIA [id number] [address] [place] [address] [place] pH adjusted to patient's actual temperature (BldV) Normal [facility] Comment on above: Order Comment: Speci men Type: BLOOD SPECIMEN Ordering Facility: [facility] Address: [address] [place] [address] Performed By: #### 1 23-9, 76097-9 #### [facility] CLIA [id number] [address] [place] [address] [place] Potassium [Moles/Vol] 3.9 mmol/L Normal 3.5-5.0 [facility] Comment on above: Order Comment: Speci men Type: BLOOD SPECIMEN Ordering Facility: [facility] Address: [address] [place] [address] Performed By: #### 1 9123-9, 47702-5 #### [facility] CLIA [id number] [address] [place] [address] [place] Sodium [Moles/Vol] 140 mmol/L Normal 136-144 [facility] Comment on above: Order Comment: Madonna chapis Type: BLOOD SPECIMEN Ordering Facility: [facility] Address: [address] [place] [address] Performed By: #### 1 9123-9, 07156-4 #### [facility] CLIA [id number] [place] [address] [place] HIGH SENSITIVITY TROPONIN To n 10-24-2023 Troponin T.cardiac High sensitivity method [Mass/Vol] 153 ng/L High <12 [facility] Comment on above: Order Comment: Madonna chapis Type: BLOOD SPECIMENOrdering Facility: [facility] Address: [address] [place] [address] Result Comment: When assessing risk for acute [...] day MACE. Performed By: #### H STNT ####[facility] [id number] [address] [place] [facility] Troponin T.cardiac High sensitivity method [Mass/Vol] 152 ng/L High <12 [facility] Comment on above: Order Comment: Madonna chapis Type: BLOOD SPECIMENOrdering Facility: [facility] Address: [address] [place] [address] Result Comment: When assessing risk for acute [...] MACE. Performed By: #### 2 4321-2, HSTNT ####[facility] [id number] [place] [address] [place] HISTORY PHYSICALon 03-05-202 4 HISTORY PHYSICAL HNO ID: [id number] Author: TAY STEWART MD Service: General Internal [...] Plan: Insul (more content not included)... Normal [facility] HISTORY PHYSICAL HNO ID: [id number] Author: JUDI LOERA PA Service: General Internal Medicine Author Type: Physician Commercial Lines Manager Type: H&P Filed: 10/24/2023 02:27 Note [...] forefoot amputation admitted from home, lives in [place] for fluid overload. The patient states he's [...] Diagnosis Date IDDM (insulin dependent diabetes mellitus) ([facility]) MRSA infection PAST SURGICAL HISTORY Procedure Laterality [...] constipation, d (more content not included)... Normal [facility] HbA1c (Bld)on 10-24-2023 Average glucose Estimated from glycated hemoglobin (Bld) [Mass/Vol] 240 mg/dL Normal [facility] Comment on above: Order Comment: Speci men Type: BLOOD SPECIMENOrdering Facility: [facility] Address: [address] [place] [address] Result Comment: eAG: (Estimated average glucose) is a calculated value from HgbA1c and is service representative of the average blood glucose level in the last 2-3 month period. Performed By: #### 5 5454-3 ####[facility] [id number] [address] [address] [place] HbA1c (Bld) [Mass fraction] 10.0 % High 4.3-5.6 [facility] Comment on above: Order Comment: Speci men Type: BLOOD SPECIMENOrdering Facility: [facility] Address: [address] [place] [address] Result Comment: Amer ican Diabetes Association guidelines indicate that patients with HgbA1c in the range 5.7-6.4% are at increased risk for development of diabetes, and intervention by lifestyle modification may be beneficial. HgbA1c greater or equal to 6.5% is considered diagnostic of diabetes. Performed By: #### 5 5454-3 ####[facility] [id number] [place] [id number] [place] NM LUNG VENT / [...] - IMPRESSION: LOW PROBABILITY OF PULMONARY EMBOLISM. Licensed Optical Dispenser: SAM Transcribe Date/Time: Oct 24 2023 2:27P Dictated by : CAT LUO MD This examination was interpreted and the report reviewed and electronically signed by: CAT LUO MD on Oct 24 2023 2:29PM EST [id number] N [facility] NURSING PROGon 10-24-2023 NURSING PROG HNO ID: [id number] Author: SLADE MCMILLAN, RN Service: ? Author Type: Registered Nurse Type: Nursing Progress Note Filed: 10/24/2023 23:50 Note Text: 2118: page house to delia eaware pt pCO2 came back 72. 2143: raymon huerta miller at bedside states she will talk to ICU team and go from there 2348: pt transferred to MICU, report given to RN. [facility] NURSING PROG HNO ID: [id number] Author: CARTER ANGEL RN Service: Nursing Author Type: Registered Nurse Type: Nursing Progress Note Filed: 10/24/2023 18:32 Note Text: Other: Late entry for 829, decreased oxygen to 5L NC, baseline is 4L NC at home. 1230: Heparin gtt discontinued, ( no cardiology intervention to be done at this time) diet order placed 1700: urgent pCO2 of 70. Updated [employer]TER MARINE via secure chat. 1715 oxygen turned to 4.5 L per resp recommendation retail loss prevention officer paged 1745: House office aware and into talk with patient. Will reach out to ICU for recommendations, sating 88-90 on 4.5 L 1830: New orders to repeat ABG's again at 2100 [facility] NURSING PROG HNO ID: [id number] Author: ANIA VAZQUEZ RN Service: ? Author Type: Registered Nurse Type: Nursing Progress Note Filed: 10/24/2023 03:26 Note Text: 0223- secure chat with HARPAL Garcia, pt has STAT order for echo, ok to be done tommorow, does not need to be done at this time [facility] NURSING PROG HNO ID: [id number] Author: SLADE MCMILLAN, RAFAEL Service: ? Author Type: Registered Nurse Type: Nursing Progress Note Filed: 10/24/2023 04:15 Note Text: 0304: page house pt MARINA came back 152. 0405: page house pt pulse ox keep dropping to 85-87 and he is on 6L of O2. he would jump up to 95 then back down and sustaining at 88%. He denies SOB. 0412: called back form , new orders put in. Normal [facility] NURSING PROG HNO ID: [id number] Author: ANIA VAZQUEZ RN Service: ? Author Type: Registered Nurse Type: Nursing Progress Note Filed: 10/24/2023 01:27 Note Text: Transfer Note: PATIENT NAME: Nicole Lora Patient Location: [place] [address] Room: -JN2S-50 Patient transferred into room/unit PK322 from the ED in stable condition. Actions taken: No futher actions taken at this time. Will continue to monitor and check with patient. Normal [facility] Osmolality SerPlon Osmolality [Osmolality] 316 mosm/kg High 275-300 [facility] Comment on above: Order Comment: Madonna [place] Type: BLOOD SPECIMEN Ordering Facility: [facility] Address: [address] [place] [address] Performed By: #### P TTAC #### [facility] CLIA [id number] [address] [place] [address] [place] Osmolality Uron 10-24-2023 Osmolality (U) [Osmolality] 343 mosm/kg Normal 50-1200 [facility] Comment on above: Order Comment: Madonna nation Type: BLOOD SPECIMEN Ordering Facility: [facility] Address: [address] [place] [address] Performed By: #### 1 9123-9, 58224-8 #### [facility] CLIA [id number] [address] [place] [address] [place] PT panel Coag (PPP)on 2023 INR Coag (PPP) [Relative time] 1.0 {INR} Normal 0.9-1.3 [facility] Comment on above: Order Comment: Madonna [place] Type: BLOOD SPECIMENOrdering Facility: [facility] Address: [address] [place] [address] Result Comment: Hazel min K Antagonist (VKA) Therapeutic Range: INR 2 to 3 (Target INR of 2.5) Note: For patients treated with VKA drugs, such as warfarin, the [place] [employer] 2012 Guideline recommends [...] Chest 2012, 141:7S-47S Sheri RA, et al. [facility] 2017, 70: 252-289 Performed By: #### 4 8065-7, 75320-9, PTTAC ####[facility] [id number] [place] [address] [place] PT Coag (PPP) [Time] 10.9 s Normal 9.7-13.0 [facility] Comment on above: Order Comment: Speci men Type: BLOOD SPECIMENOrdering Facility: [facility] Address: [address] [place] [address] Performed By: #### 4 8065-7, 45621-4, PTTAC ####[facility] [id number] [place] [address] [place] PTT, ANTICOAGULANT THERAPYon 10-24-2023 aPTT Coag (PPP) [Time] 31.1 s Normal 23.0-32.4 [facility] Comment on above: Order Comment: Speci chapis Type: BLOOD SPECIMEN Ordering Facility: [facility] Address: [address] [place] [address] Performed By: #### P TTAC #### [facility] CLIA [id number] [address] [place] aPTT Coag (PPP) [Time] 28.0 s Normal 23.0-32.4 [facility] Comment on above: Order Comment: Kentoni chapis Type: BLOOD SPECIMENOrdering Facility: [facility] Address: [address] [place] [address] Performed By: #### 4 8065-7, 04115-8, PTTAC ####[facility] [id number] [place] [address] [place] Potassium ?Tm Ur-sCncon 03- Potassium Unsp time (U) [Moles/Vol] 25.9 mmol/L Normal 10.0-160.0 [facility] Comment on above: Order Comment: Speci men Type: BLOOD SPECIMEN Ordering Facility: [facility] Address: [address] [place] [address] Performed By: #### P TTAC #### [facility] CLIA [id number] [address] [place] [address] [place] Prot/Creat Uron 10-24-2023 Protein/Creatinine (U) [Mass ratio] 1.09 mg/mg High <0.15 [facility] Comment on above: Order Comment: Speci men Type: BLOOD SPECIMEN Ordering Facility: [facility] Address: [address] [place] [address] Result Comment: Adul t Proteinuria Categories: <0.15 mg/mg is considered normal to mildly increased 0.15 - 0.50 mg/mg is considered moderately increased >0.50 mg/mg is considered severely increased KDIGO. (2013). KDIGO 2012 Clinical Practice Guideline for the Evaluation and Management of Chronic Kidney Disease. Official Journal of the International Society of Nephrology, 3(1), 1-150. Performed By: #### P TTAC #### [facility] CLIA [id number] [address] [place], [place] [address] [place] Protein/Creatinine (U) [Mass ratio]on 10-24-2023 Creatinine (U) [Mass/Vol] 43.3 mg/dL Normal 20.0-300.0 [facility] Comment on above: Order Comment: Speci men Type: BLOOD SPECIMEN Ordering Facility: [facility] Address: [address] [place] [address] Performed By: #### P TTAC #### [facility] CLIA [id number] [address] [place], [place] [address] [place] Protein (U) [Mass/Vol] 47 mg/dL High 0-20 [facility] Comment on above: Order Comment: Speci chapis Type: BLOOD SPECIMEN Ordering Facility: [facility] Address: [address] [place] [address] Performed By: #### P TTAC #### [facility] CLIA [id number] [address] [place] [address] [place] Sodium ?Tm Ur-sCncon 024 Sodium Unsp time (U) [Moles/Vol] 61 mmol/L Normal 14-216 [facility] Comment on above: Order Comment: Speci men Type: BLOOD SPECIMEN Ordering Facility: [facility] Address: [address] [place] [address] Performed By: #### P TTAC #### [facility] CLIA [id number] [address] [place] [id number] [facility] [place] THERAPY NTon 10-24-2023 THERAPY NT HNO ID: [id number] Author: CATHIE DOMÍNGUEZ PT Service: Physical Therapy Author Type: Physical Therapist Type: Therapy (PT/OT/Speech/Resp) Filed: 10/24/2023 12:05 Note Text: Physical Therapy Evaluation Summary SERVICE DATE: 10/24/2023 SERVICE TIME: 09 to 09 ROOM: [place] [address] PT 6 Clicks Score: 20 DISCHARGE RECOMMENDATIONS Home PT Physical Assist at Home for: Transportation, Shopping, Laundry, Cleaning ASSESSMENT Response to Therapy Interventions: Good Participation in Activities, Low Activity Tolerance PRECAUTIONS Bed/Chair Alarm, Fall Risk, Lines/Tubes/Drains, Other: See Comments, Fluid Restrictions, Diet Restrictions, Weight Bearing Restrictions (NPO, Left Foot Wound Per RAFAEL Camacho) WBAT) Respiratory, 5L this Left Lower Extremity Weight Bearing Status: WBAT (Per RAFAEL Camacho)) CURRENT HOSPITAL COURSE admit for fluid overload; Acute on chronic respiratory failure Relevant Past Medical History: CKD 3b, chronic respiratory failure, morbid obesity, insulin dependent diabetes, left forefoot amputation HOME LIVING Patient Lives With: Self/Alone, Other: See Comment Comments: Apt [address] level In [place], [place] Assistance Available: Part-Time, Other: See Comment Comments: five children in area, Pt reported he is checked daily by his family Entry To Home: No Stairs Number Of Stairs To Bed/Bath: 0 Tub/Shower Type: SKYLAR Laundry: Same level Equipment Owned: Grab Bars- Shower, Shower Chair, Hand Held Shower, Walker- Wheeled, Rollator, Cane, Home Oxygen, Other: See Comment (4L 02 night use) PRIOR FUNCTIONAL LEVEL Within Functional Limits, History of Falls, Other: See Comment (falls X 2 in past year) Per Pt, he was independent with ADL s, IADL's, ambulated independently prior to admit, and drives. Per [facility], Pt has been in and out of hospitals for the past six weeks. . Pt has five children in the area, and reported they check him daily. SUBJECTIVE I'm uncomfortable THERAPY DIAGNOSIS Reduced mobility-other, Muscle Weakness (generalized), General symptoms and signs-other TREATMENT INTERVENTIONS Evaluation, Gait Training (74753) Timed Code Treatment (minutes): 8 Skilled Treatment [...] DATE: October 24, 2023 TIME: 12:05 PM [facility] THERAPY NT HNO ID: [id number] Author: LUZMA AVALOS, OTR/L Service: Occupational Therapy Author Type: Occupational Therapist Type: Therapy (PT/OT/Speech/Resp) Filed: 10/24/2023 12:02 Note Text: Occupational Therapy Evaluation Summary SERVICE DATE: 10/24/2023 SERVICE TIME: 0840 to 0905 ROOM: [place] [address] OT 6 Clicks Score: 19 SOB, BLE Edema Rt > Left, Elevated troponin, Fluid Overload. Pt Presents With Multiple Recent Hospital Admits. DISCHARGE RECOMMENDATIONS Home Anticipated Discharge Needs: Physical Assist at Home, Equipment Physical Assist at Home for: Transportation, Shopping, Laundry, Cleaning Recommended Discharge Equipment: Grab Bars-Shower, Hand Held Shower, Long Handled Shoe Horn, Long Handled Sponge, Wheeled Walker, Register Clerk, Shower Chair ASSESSMENT Response to Therapy Interventions: Good Participation in Activities Pt has gogd family support, and plans to return home following acute stay. PRECAUTIONS Bed/Chair Alarm, Fall Risk, Lines/Tubes/Drains, Other: See Comments, Fluid Restrictions, Diet Restrictions, Weight Bearing Restrictions (NPO, Left Foot Wound Per RN Janice) WBAT) Respiratory, 5L 02 this date Left Lower Extremity Weight Bearing Status: WBAT (Per RAFAEL Camacho)) CURRENT HOSPITAL COURSE SOB, BLE Edema Rt > Left, Elevated troponin, Fluid Overload. Pt Presents With Multiple Recent Hospital Admits. Relevant Past Medical History: CKD 3b, chronic respiratory failure, morbid obesity, insulin dependent diabetes, left forefoot amputation HOME LIVING Patient Lives With: Self/Alone, Other: See Comment Comments: Apt 1st level In [place], [place] Assistance Available: Part-Time, Other: See Comment [...] independently prior to admit, and drives. Per [facility], Pt has been in and out [...] Muscle Weakness (generalized) TREATMENT INTERVENTIONS Evaluation, Self Shelter Management (30843) Timed Code Treatment (minutes): 10 Skilled Treatment Time (minutes): 25 TRAINING AND EDUCATION PROVIDED Bed Mobility, Benefits of In-Hospital Mobility, Discharge Planning, Edema Management, Disease Specific Education, Energy Conservation, Expected Functional Level, Insight into Deficits, Positioning, Precautions/Restricti ons, Role of Occupational Therapy, Safety/Judgment, Standing Balance to Improve Scott with ADLs/Self-Care, Transfer - Bed to Chair, [...] Rehab Po (more content not included)... Normal [facility] URINALYSIS, REFLEX MICROSCOP ICon 10-24-2023 Bacteria LM.HPF (Urine sed) [#/Area] Rare Abnormal None Seen [facility] Comment on above: Order Comment: Speci men Type: BLOOD SPECIMEN Ordering Facility: [facility] Address: [address] [place] [address] Performed By: #### 1 2123-9, 25743-1 #### [facility] CLIA [id number] [address] [place] [address] [place] Bilirubin Ql (U) Negative Normal Negative [facility] Comment on above: Order Comment: Speci men Type: BLOOD SPECIMEN Ordering Facility: [facility] Address: [address] [place] [address] Performed By: #### 1 9, 35633-5 #### [facility] CLIA [id number] [address] [place] [address] [place] Clarity (Unsp spec) Clear Normal Clear [facility] Comment on above: Order Comment: Speci men Type: BLOOD SPECIMEN Ordering Facility: [facility] Address: [address] [place] [address] Performed By: #### 1 12239, 83607-4 #### [facility] CLIA [id number] [address] [place] [address] [place] Color (U) Light Yellow Normal Yellow [facility] Comment on above: Order Comment: Speci men Type: BLOOD SPECIMEN Ordering Facility: [facility] Address: [address] [place] [address] Performed By: #### 1 5523-9, 82115-9 #### [facility] CLIA [id number] [address] [place] [address] [place] Glucose Test strip (U) [Mass/Vol] Trace Normal Trace, Negative [facility] Comment on above: Order Comment: Speci men Type: BLOOD SPECIMEN Ordering Facility: [facility] Address: [address] [place] [address] Performed By: #### 1 5923-9, 17119-3 #### [facility] CLIA [id number] [address] [place] [address] [place] Hemoglobin Ql (U) 1+ Abnormal Negative, Trace Fa [facility] Comment on above: Order Comment: Speci men Type: BLOOD SPECIMEN Ordering Facility: [facility] Address: [address] [place] [address] Performed By: #### 1 9123-9, 52817-9 #### [facility] CLIA [id number] [address] [place] [address] [place] Hyaline casts (Urine sed) [#/Area] 4-10 /LPF Abnormal 0 /LPF [facility] Comment on above: Order Comment: Speci men Type: BLOOD SPECIMEN Ordering Facility: [facility] Address: [address] [place] [address] Performed By: #### 1 9123-9, 16229-9 #### [facility] CLIA [id number] [address] [place] [address] [place] [facility] [place] Ketones Ql (U) Negative Normal Negative, Trace [facility] Comment on above: Order Comment: Speci men Type: BLOOD SPECIMEN Ordering Facility: [facility] Address: [address] [place] [address] Performed By: #### 1 0523-9, 14155-6 #### [facility] CLIA [id number] [address] [place] [address] [place] Leukocyte esterase Test strip Ql (U) 500 Moira/uL Abnormal Negative, 25 Moira/uL [facility] Comment on above: Order Comment: Speci men Type: BLOOD SPECIMEN Ordering Facility: [facility] Address: [address] [place] [address] Performed By: #### 1 9123-9, 66940-7 #### [facility] CLIA [id number] [address] [place] [address] [place] Nitrite Ql (U) Negative Normal Negative [facility] Comment on above: Order Comment: Speci men Type: BLOOD SPECIMEN Ordering Facility: [facility] Address: [address] [place] [address] Performed By: #### 1 3723-9, 33242-5 #### [facility] CLIA [id number] [address] [place] [address] [place] pH (U) 5.5 [pH] Normal 5.0-8.0 [facility] Comment on above: Order Comment: Speci men Type: BLOOD SPECIMEN Ordering Facility: [facility] Address: [address] [place] [address] Performed By: #### 1 9123-04, #### [facility] CLIA [id number] [address] [place] [address] [place] Protein (U) [Mass/Vol] 1+ Abnormal Trace, Negative [facility] Comment on above: Order Comment: Speci men Type: BLOOD SPECIMEN Ordering Facility: [facility] Address: [address] [place] [address] Performed By: #### 1 9123-04, #### [facility] CLIA [id number] [address] [place] [address] [place] RBC LM.HPF (Urine sed) [#/Area] /[HPF] Abnormal 0-3 /HPF [facility] Comment on above: Order Comment: Speci men Type: BLOOD SPECIMEN Ordering Facility: [facility] Address: [address] [place] [address] Performed By: #### 1 9123-04, #### [facility] CLIA [id number] [address] [place] [address] [place] Specific gravity (U) [Rel density] 1.015 Normal 1.005-1.030 [facility] Comment on above: Order Comment: Speci men Type: BLOOD SPECIMEN Ordering Facility: [facility] Address: [address] [place] [address] Performed By: #### 1 9123-04, #### [facility] CLIA [id number] [address] [place] [address] [place] Urobilinogen Ql (U) Normal Normal Normal [facility] Comment on above: Order Comment: Speci men Type: BLOOD SPECIMEN Ordering Facility: [facility] Address: [address] [place] [address] Performed By: #### 1 9123-04, #### [facility] CLIA [id number] [address] [place] [address] [place] WBC LM.HPF (Urine sed) [#/Area] 11-25 /HPF Abnormal 0-5 /HPF [facility] Comment on above: Order Comment: Speci men Type: BLOOD SPECIMEN Ordering Facility: [facility] Address: [place] [address] Performed By: #### 1 9123-9, 10419-5 #### [facility] CLIA [id number] [address] [place] [address] [place] US KIDNEY/BLADDERon 10-24-19 [...] Otherwise limited assessment especially on the left. Licensed Optical Dispenser: PSCB Transcribe Date/Time: Oct 25 2023 7:19A Dictated by : KASHIF PIERSON MD This examination was interpreted and the report reviewed and electronically signed by: KASHIF PIERSON MD on Oct 25 2023 7:21AM EST [id number] N Normal [facility] ALLIED HEALTHon 10-23-2023 ALLIED HEALTH HNO ID: [id number] Author: LI WEN RDMS Service: Radiology Author Type: Thrasher Feeder Type: Allied Health Filed: 10/23/2023 18:11 Note [...] PATIENT PRESENTS WITH AN IMPLANTABLE OR ATTACHED WAREHOUSE GENERAL LABORER: No RADIOLOGY DEPARTMENT: Ultrasound PERIPHERAL IV DATA: Not applicable SIGNED BY: Li Wen RDMS October 23, 2023 6:10 PM [facility] ALLIED HEALTH HNO ID: [id number] Author: RUBINA NINO RT(Prem) Service: Radiology Author Type: Technologist Type: Allied [...] PATIENT PRESENTS WITH AN IMPLANTABLE OR ATTACHED WAREHOUSE GENERAL LABORER: No RADIOLOGY DEPARTMENT: General X-ray: Exam(s) Completed: Chest X-Ray PERIPHERAL IV DATA: Not applicable SIGNED BY: RT Kena(R) October 23, 2023 5:32 PM [facility] CBC W Auto Differential pane l (Bld)on 10-23-2023 Basophils (Bld) [#/Vol] 10*3/uL Normal <0.11 [facility] Comment on above: Order Comment: Speci men Type: BLOOD SPECIMEN Ordering Facility: [facility] Address: [address] [place] [address] Performed By: #### 1 9123-9, 95147-3 #### [facility] CLIA [id number] [address] [place] [address] [place] Basophils/100 WBC (Bld) 0.3 % Normal [facility] Comment on above: Order Comment: Speci men Type: BLOOD SPECIMEN Ordering Facility: [facility] Address: [address] [place] [address] Performed By: #### 1 91239, #### [facility] CLIA [id number] [address] [place] [address] [place] Differential cell count method Nom (Bld) Auto Normal [facility] Comment on above: Order Comment: Speci men Type: BLOOD SPECIMEN Ordering Facility: [facility] Address: [address] [place] [address] Performed By: #### 1 9, #### [facility] CLIA [id number] [address] [place] [address] [place] Eosinophils (Bld) [#/Vol] 0.27 10*3/uL Normal <0.46 [facility] Comment on above: Order Comment: Speci men Type: BLOOD SPECIMEN Ordering Facility: [facility] Address: [address] [place] [address] Performed By: #### 1 239, #### [facility] CLIA [id number] [address] [place] [address] [place] Eosinophils/100 WBC (Bld) 3.8 % Normal [facility] Comment on above: Order Comment: Speci men Type: BLOOD SPECIMEN Ordering Facility: [facility] Address: [address] [place] [address] Performed By: #### 1 9123-9, #### [facility] CLIA [id number] [address] [place] [address] [place] Erythrocyte distribution width (RBC) [Ratio] 16.3 % High 11.5-15.0 [facility] Comment on above: Order Comment: Speci men Type: BLOOD SPECIMEN Ordering Facility: [facility] Address: [address] [place] [address] Performed By: #### 1 1423-9, #### [facility] CLIA [id number] [address] [place] [address] [place] Hematocrit (Bld) [Volume fraction] 40.6 % Normal 39.0-51.0 [facility] Comment on above: Order Comment: Speci men Type: BLOOD SPECIMEN Ordering Facility: [facility] Address: [address] [place] [address] Performed By: #### 1 9123-9, #### [facility] CLIA [id number] [address] [place] [address] [place] Hemoglobin (Bld) [Mass/Vol] 12.4 g/dL Low 13.0-17.0 [facility] Comment on above: Order Comment: Speci men Type: BLOOD SPECIMEN Ordering Facility: [facility] Address: [address] [place] [address] Performed By: #### 1 91239, #### [facility] CLIA [id number] [address] [place] [address] [place] Immature granulocytes (Bld) [#/Vol] 0.04 10*3/uL Normal <0.10 [facility] Comment on above: Order Comment: Speci men Type: BLOOD SPECIMEN Ordering Facility: [facility] Address: [address] [place] [address] Performed By: #### 1 91239, #### [facility] CLIA [id number] [address] [place] [address] [place] Immature granulocytes/100 WBC (Bld) 0.6 % Normal [facility] Comment on above: Order Comment: Speci men Type: BLOOD SPECIMEN Ordering Facility: [facility] Address: [address] [place] [address] Performed By: #### 1 9123-9, 92386-5 #### [facility] CLIA [id number] [address] [place] [address] [place] Lymphocytes (Bld) [#/Vol] 1.04 10*3/uL Normal 1.00-4.00 [facility] Comment on above: Order Comment: Speci men Type: BLOOD SPECIMEN Ordering Facility: [facility] Address: [address] [place] [address] Performed By: #### 1 23-9, #### [facility] CLIA [id number] [address] [place] [address] [facility] Lymphocytes/100 WBC (Bld) 14.7 % Normal [facility] Comment on above: Order Comment: Speci men Type: BLOOD SPECIMEN Ordering Facility: [facility] Address: [address] [place] [address] Performed By: #### 1 239, #### [facility] CLIA [id number] [address] [place] [address] [place] MCH (RBC) [Entitic mass] 27.1 pg Normal 26.0-34.0 [facility] Comment on above: Order Comment: Speci men Type: BLOOD SPECIMEN Ordering Facility: [facility] Address: [address] [place] [address] Performed By: #### 1 239, #### [facility] CLIA [id number] [address] [place] [address] [facility] MCHC (RBC) [Mass/Vol] 30.5 g/dL Normal 30.5-36.0 [facility] Comment on above: Order Comment: Speci men Type: BLOOD SPECIMEN Ordering Facility: [facility] Address: [address] [place] [address] Performed By: #### 1 239, #### [facility] CLIA [id number] [address] [place] [address] [place] MCV (RBC) [Entitic vol] 88.6 fL Normal 80.0-100.0 [facility] Comment on above: Order Comment: Speci men Type: BLOOD SPECIMEN Ordering Facility: [facility] Address: [address] [place] [address] Performed By: #### 1 29239, 04271-9 #### [facility] CLIA [id number] [address] [place] [address] [place] Monocytes (Bld) [#/Vol] 0.74 10*3/uL Normal <0.87 [facility] Comment on above: Order Comment: Speci men Type: BLOOD SPECIMEN Ordering Facility: [facility] Address: [address] [place] [address] Performed By: #### 1 9123-9, 46084-6 #### [facility] CLIA [id number] [address] [place] [address] [place] Monocytes/100 WBC (Bld) 10.4 % Normal [facility] Comment on above: Order Comment: Speci men Type: BLOOD SPECIMEN Ordering Facility: [facility] Address: [address] [place] [address] Performed By: #### 1 6423-9, 69482-5 #### [facility] CLIA [id number] [address] [place] [address] [place] Neutrophils (Bld) [#/Vol] 4.98 10*3/uL Normal 1.45-7.50 [facility] Comment on above: Order Comment: Speci men Type: BLOOD SPECIMEN Ordering Facility: [facility] Address: [address] [place] [address] Performed By: #### 1 55259, 42934-6 #### [facility] CLIA [id number] [address] [place] [address] [place] Neutrophils/100 WBC (Bld) 70.2 % Normal [facility] Comment on above: Order Comment: Speci men Type: BLOOD SPECIMEN Ordering Facility: [facility] Address: [address] [place] [address] Performed By: #### 1 3723-9, 32415-8 #### [facility] CLIA [id number] [address] [place] [address] [place] Nucleated RBC (Bld) [#/Vol] 10*3/uL Normal <0.01 [facility] Comment on above: Order Comment: Speci men Type: BLOOD SPECIMEN Ordering Facility: [facility] Address: [address] [place] [address] Performed By: #### 1 5919-9, 80945-0 #### [facility] CLIA [id number] [address] [place] [address] [place] Nucleated RBC/100 WBC (Bld) [Ratio] 0.0 /100 WBC Normal [facility] Comment on above: Order Comment: Speci men Type: BLOOD SPECIMEN Ordering Facility: [facility] Address: [address] [place] [address] Performed By: #### 1 9123-9, 49008-3 #### [facility] CLIA [id number] [address] [place] [address] [place] Platelet mean volume (Bld) [Entitic vol] 8.9 fL Low 9.0-12.7 [facility] Comment on above: Order Comment: Speci men Type: BLOOD SPECIMEN Ordering Facility: [facility] Address: [address] [place] [address] Performed By: #### 1 9123-9, 48057-8 #### [facility] CLIA [id number] [address] [place] [address] [place] Platelets (Bld) [#/Vol] 220 10*3/uL Normal 150-400 [facility] Comment on above: Order Comment: Speci men Type: BLOOD SPECIMEN Ordering Facility: [facility] Address: [address] [place] [address] Performed By: #### 1 9123-9, 45331-2 #### [facility] CLIA [id number] [address] [place] [address] [place] RBC (Bld) [#/Vol] 4.58 10*6/uL Normal 4.20-6.00 [facility] Comment on above: Order Comment: Speci men Type: BLOOD SPECIMEN Ordering Facility: [facility] Address: [address] [place] [address] Performed By: #### 1 9123-9, 91847-1 #### [facility] CLIA [id number] [address] [place] [address] [place] WBC (Bld) [#/Vol] 7.09 10*3/uL Normal 3.70-11.00 [facility] Comment on above: Order Comment: Speci men Type: BLOOD SPECIMEN Ordering Facility: [facility] Address: [address] [place] [address] Performed By: #### 1 9123-9, 57722-2 #### [facility] CLIA [id number] [address] [place] [address] [place] Comprehensive metabolic 2000 panelon 10-23-2023 Albumin [Mass/Vol] 3.5 g/dL Low 3.9-4.9 [facility] Comment on above: Order Comment: Speci men Type: BLOOD SPECIMEN Ordering Facility: [facility] Address: [address] [place] [address] Performed By: #### H STNT, 3016-3, 72818-8, 10302-6 #### [facility] CLIA [id number] [address] [place] [address] [place] ALP [Catalytic activity/Vol] 112 U/L Normal 38-113 [facility] Comment on above: Order Comment: Speci men Type: BLOOD SPECIMEN Ordering Facility: [facility] Address: [address] [place] [address] Performed By: #### H STNT, 6-3, 81783-1, 04900-3 #### [facility] CLIA [id number] [address] [place] [address] [place] ALT [Catalytic activity/Vol] 19 U/L Normal 10-54 [facility] Comment on above: Order Comment: Speci men Type: BLOOD SPECIMEN Ordering Facility: [facility] Address: [address] [place] [address] Performed By: #### H STNT, 3016-3, 12023-1, 40016-5 #### [facility] CLIA [id number] [address] [place] [address] [place] Anion gap [Moles/Vol] 11 mmol/L Normal 9-18 [facility] Comment on above: Order Comment: Speci men Type: BLOOD SPECIMEN Ordering Facility: [facility] Address: [address] [place] [address] Performed By: #### H STNT, 6-3, 05374-8, 17266-8 #### [facility] CLIA [id number] [address] [place] [address] [place] AST [Catalytic activity/Vol] 21 U/L Normal 14-40 [facility] Comment on above: Order Comment: Speci men Type: BLOOD SPECIMEN Ordering Facility: [facility] Address: [address] [place] [address] Performed By: #### H STNT, 6-3, 55058-8, 58414-6 #### [facility] CLIA [id number] [address] [place] [address] [place] Bilirubin [Mass/Vol] 0.4 mg/dL Normal 0.2-1.3 [facility] Comment on above: Order Comment: Speci men Type: BLOOD SPECIMEN Ordering Facility: [facility] Address: [address] [place] [address] Performed By: #### H STNT, 3015-3, 28744-1, 39030-9 #### [facility] CLIA [id number] [address] [place] [address] [place] Calcium [Mass/Vol] 8.6 mg/dL Normal 8.5-10.2 [facility] Comment on above: Order Comment: Speci men Type: BLOOD SPECIMEN Ordering Facility: [facility] Address: [address] [place] [address] Performed By: #### H STNT, 6-3, 42707-0, 43260-8 #### [facility] CLIA [id number] [address] [place] [address] [place] Chloride [Moles/Vol] 100 mmol/L Normal 97-105 [facility] Comment on above: Order Comment: Speci men Type: BLOOD SPECIMEN Ordering Facility: [facility] Address: [address] [place] [address] Performed By: #### H STNT, 6-3, 81008-8, 23291-6 #### [facility] CLIA [id number] [address] [place] [address] [place] CO2 [Moles/Vol] 28 mmol/L Normal 22-30 [facility] Comment on above: Order Comment: Speci men Type: BLOOD SPECIMEN Ordering Facility: [facility] Address: [address] [place] [address] Performed By: #### H STNT, 3016-3, 19761-0, 86147-0 #### [facility] CLIA [id number] [place] [address] [place] Creatinine [Mass/Vol] 2.00 mg/dL High 0.73-1.22 [facility] Comment on above: Order Comment: [place] men Type: BLOOD SPECIMEN Ordering Facility: [facility] Address: [address] [place] [address] Performed By: #### H STNT, 3016-3, 34211-5, 53602-5 #### [facility] CLIA [id number] [address] [place] [address] OF [facility] Creatinine and Glomerular filtration rate.predicted panel (S/P/Bld) 37 mL/min/1.73m??? Low >=60 [facility] Comment on above: Order Comment: [place] men Type: BLOOD SPECIMEN Ordering Facility: [facility] Address: [address] [place] [address] Result Comment: Meredith mated Glomerular Filtration Rate [...] GFR. Performed By: #### H STNT, 3016-3, 67279-7, 24427-5 #### [facility] CLIA [id number] [address] [place] [address] [place] Glucose [Mass/Vol] 138 mg/dL High 74-99 [facility] Comment on above: Order Comment: Speci men Type: BLOOD SPECIMEN Ordering Facility: [facility] Address: [address] [place] [address] Result Comment: The [place] [employer] (ADA) provides guidance for cutoff [...] Standards of Medical Care in Diabetes 2016, [place] [employer]. Diabetes Care. 2016.39(Suppl 1). Performed By: #### H STNT, 3016-3, 24093-6, 12093-6 #### [facility] CLIA [id number] [address] [place] [address] [place] Potassium [Moles/Vol] 4.6 mmol/L Normal 3.7-5.1 [facility] Comment on above: Order Comment: [place] Type: BLOOD SPECIMEN Ordering Facility: [facility] Address: [address] [place] [address] Performed By: #### H STNT, 3016-3, 93938-6, 55106-1 #### [facility] CLIA [id number] [address] [place] [address] [place] Protein [Mass/Vol] 6.5 g/dL Normal 6.3-8.0 [facility] Comment on above: Order Comment: Madonna men Type: BLOOD SPECIMEN Ordering Facility: [facility] Address: [address] [place] [address] Performed By: #### H STNT, 3016-3, 00736-4, 10401-9 #### [facility] CLIA [id number] [address] [place] [address] [place] Sodium [Moles/Vol] 139 mmol/L Normal 136-144 [facility] Comment on above: Order Comment: [place] Type: BLOOD SPECIMEN Ordering Facility: [facility] Address: [address] [place] [address] Performed By: #### H STNT, 3016-3, 02627-9, 29297-0 #### [facility] CLIA [id number] [address] [place] [id number] [place] Urea nitrogen [Mass/Vol] 60 mg/dL High 05-14 [facility] Comment on above: Order Comment: Speci men Type: BLOOD SPECIMEN Ordering Facility: [facility] Address: [address] [place] [address] Performed By: #### H STNT, 3016-3, 69867-8, 73607-1 #### [facility] CLIA [id number] [address] [place] [id number] [place] ECG COMPLETEon 10-23-2023 ECG COMPLETE Ventricular Rate : 7 7 BPM Atrial Rate : 78 BPM P-R Interval : 180 ms QRS Duration : 97 ms Q-T Interval : 389 ms QTC Calculation(Bazett) : 441 ms Calculated P [place] : 53 degrees Calculated R [place] : -76 degrees Calculated T [place] : 65 degrees Sinus rhythm Left anterior fascicular block Abnormal ECG no stemi Confirmed by DARNELL YIN MD ([id number]), editorial project manager JACQUELINE ROSALES ([id number]) on 10/24/2023 10:36:37 AM NAME : NICOLE LORA PID : [id number] : 1960 Gender : Male Race : ORD : [id number] Procedure Date : Oct 23 2023 20:16:04 Edit Date : Oct 24 2023 10:36:39 Diagnosis: Sinus rhythm Left anterior fascicular block Abnormal ECG no stemi Confirmed by DARNELL YIN MD ([id number]), editorial project manager JACQUELINE ROSALES ([id number]) on 10/24/2023 10:36:37 AM Test Reason : Other - Specify Location : 402 : FVED [id number] Overread By : DARNELL YIN MD Edited By : JACQUELINE ROSALES Referred By : , Acquired by : [id number], [facility] ED NOTEon 10-23-2023 ED NOTE HNO ID: [id number] Author: PER HARDWICK RN Service: ? 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 He has been in and out of the hospital for the past 6 weeks at [facility] [place]. He was initially found to be in [...] for the (more content not included)... Normal [facility] ED Triage Noteon 10-23-2023 ED Triage Note HNO ID: [id number] Author: OTONIEL ALBERTS MD Service: ? Author [...] No diagnosis found. SIGNATURE: Otoniel Alberts MD [facility] HIGH SENSITIVITY TROPONIN To n 10-23-2023 Troponin T.cardiac High sensitivity method [Mass/Vol] 167 ng/L High <12 [facility] Comment on above: Order Comment: Speci men Type: BLOOD SPECIMENOrdering Facility: [facility] Address: [address] [place] [address] Result Comment: When assessing risk for acute [...] day MACE. Performed By: #### H STNT ####[facility] [id number] [address] [place] Troponin T.cardiac High sensitivity method [Mass/Vol] 172 ng/L High <12 [facility] Comment on above: Order Comment: [place] Type: BLOOD SPECIMEN [facility] Address: [address] [place] [address] Result Comment: When assessing risk for acute [...] MACE. Performed By: #### H STNT, 3016-3, 32406-3, 09508-5 #### [facility] CLIA [id number] [address] [place] [address] [place] NT-proBNP SerPl-mCncon 10-22 Natriuretic peptide.B prohormone N-Terminal [Mass/Vol] 1124 pg/mL High <125 [facility] Comment on above: Order Comment: [place] Type: BLOOD SPECIMEN [facility] Address: [address] [place] [address] Performed By: #### H STNT, 3016-3, 54237-7, 23355-1 #### [facility] CLIA [id number] [address] [place] [address] [place] TSH SerPl-aCncon 10-23-2023 TSH Qn 2.630 m[IU]/L Normal 0.270-4.200 [facility] Comment on above: Order Comment: [place] Type: BLOOD SPECIMEN [facility] Address: [address] [place] [address] Performed By: #### H STNT, 3016-3, 90855-9, 51504-4 #### [facility] CLIA [id number] [address] [place] [address] [place] US DVT LOWER [...] OF THE LEFT AND RIGHT LOWER EXTREMITIES. Licensed Optical Dispenser: SAM Transcribe Date/Time: Oct 23 2023 6:44P Dictated by : PRESTON GONZALEZ MD This examination was interpreted and the report reviewed and electronically signed by: PRESTON GONZALEZ MD on Oct 23 2023 6:47PM EST [id number] N Normal [facility] XR CHEST 1V FRONTAL PORTon 0 [...] venous hypertension and possible mild pulmonary edema. Licensed Optical Dispenser: SAM Transcribe Date/Time: Oct 23 2023 5:22P Dictated by : RADHA KONG MD This examination was interpreted and the report reviewed and electronically signed by: RADHA KONG MD on Oct 23 2023 5:25PM EST [id number] Normal [facility] Pre-Certification Formon Pre-Certification Form [id number] .00TIFF Normal [facility] Ambulatory Visit Summaryon 0 10-18-2023 Ambulatory Visit Summary Normal [facility] Patient Educationon 10-18-19 Patient Education Normal [facility] Urology Office/Clinic Noteon 10-18-2023 Urology Office/Clinic Note Normal [facility] Comment on above: Result Comment: Elec tronically Signed By: Basia Claire\.br\Date and Time Signed: 10/18/23 09:42 EST\.br\Electronically Co-Signed By: Bailey Vásquez\.br\Date and Time Co-Signed: 10/18/23 09:44 EST\.br\Electronically Co-Signed By: Taz THOMAS MD\.br\Date and Time Co-Signed: 10/18/23 15:44 EST Consent for Treatmenton 09-22 Consent for Treatment [id number] .00TIFF Normal [facility] Discharge Instructionson Discharge Instructions [id number] .00TIFF Normal [facility] ED Clinical Summaryon 2023 ED Clinical Summary Normal [facility] ED Note-Physicianon 10-15-19 ED Note-Physician Normal [facility] Comment on above: Result Comment: Elec tronically Signed By: Mone Martinez DO.br\Date and Time Signed: 10/15/23 06:52 EST ED Patient Education Noteon 10-15-2023 ED Patient Education Note Normal [facility] ED Patient Summaryon 024 ED Patient Summary Normal [facility] Calcium [Mass/volume] in Ser um or PlasmaOrdered By: Yesi Murphy on 10-13-2023 Calcium [Mass/Vol] 8.2 mg/dL 8.6-10.3 [facility] Carbon dioxide, total [Moles /volume] in Serum or PlasmaOrdered By: Yesi Murphy on 10-13-2023 CO2 [Moles/Vol] 33.7 mmol/L 21.0-31.0 [facility] Chloride [Moles/volume] in S raymond or PlasmaOrdered By: Yesi Murphy on 10-13-2023 Chloride [Moles/Vol] 100 mmol/L 98-107 [facility] Creatinine [Mass/volume] in Serum or PlasmaOrdered By: Yesi Murphy on 10-13-2023 Creatinine [Mass/Vol] 1.91 mg/dL 0.70-1.30 [facility] Glucose [Mass/volume] in Ser um or PlasmaOrdered By: Yesi Murphy on 10-13-2023 Glucose [Mass/Vol] 250 mg/dL 70-100 [facility] Comment on above: ADA recommended refe rence rangeRandom Glucose Reference Range is dependent on time and content of last meal. Glucose of more than 200 mg/dL in a nonstressed, ambulatory subject supports the diagnosis of Diabetes Mellitus. No Panel InformationOrdered By: Yesi Murphy on 10-13-2023 Estimated GFR (CKD-EPI) 38.661 mL/Min [facility] Creatinine Clearance (Chem N/A [facility] Potassium [Moles/volume] in Serum or PlasmaOrdered By: Yesi Murphy on 10-13-2023 Potassium [Moles/Vol] 4.3 mmol/L 3.5-5.1 [facility] Serum or plasma anion gap de terminationOrdered By: Yesi Murphy on 10-13-2023 Anion gap [Moles/Vol] 10.6 mmol/L 6.0-15.0 [facility] Sodium [Moles/volume] in Ser um or PlasmaOrdered By: Yesi Murphy on 10-13-2023 Sodium [Moles/Vol] 140 mmol/L 136-145 [facility] Urea nitrogen [Mass/volume] in Serum or PlasmaOrdered By: Yesi Murphy on 10-13-2023 Urea nitrogen [Mass/Vol] 52 mg/dL 7-25 [facility] Albumin [Mass/volume] in Ser um or Plasma by Bromocresol green (BCG) dye binding methoOrdered By: Gigi Cooper on 10-12-2023 Albumin BCG dye [Mass/Vol] 3.6 g/dL 3.5-5.7 [facility] Calcium [Mass/volume] in Ser um or PlasmaOrdered By: Gigi Cooper on 10-12-2023 Calcium [Mass/Vol] 8.8 mg/dL 8.6-10.3 [facility] Carbon dioxide, total [Moles /volume] in Serum or PlasmaOrdered By: Gigi Cooper on 10-12-2023 CO2 [Moles/Vol] 32.8 mmol/L 21.0-31.0 [facility] Chloride [Moles/volume] in S raymond or PlasmaOrdered By: Gigi Cooper on 10-12-2023 Chloride [Moles/Vol] 96 mmol/L 98-107 [facility] Creatinine [Mass/volume] in Serum or PlasmaOrdered By: Gigi Cooper on 10-12-2023 Creatinine [Mass/Vol] 1.95 mg/dL 0.70-1.30 [facility] Glucose Glucometer (BldC) [M ass/Vol]Ordered By: Yesi Murphy on 10-12-2023 Glucose [Mass/Vol] 224 mg/dL [facility] Comment on above: Random Glucose Refer ence Range is dependent on time and content of last meal. Glucose of more than 200 mg/dL in a nonstressed, ambulatory subject supports the diagnosis of Diabetes Mellitus. Glucose [Mass/volume] in Ser um or PlasmaOrdered By: Gigi Cooper on 10-12-2023 Glucose [Mass/Vol] 275 mg/dL 70-100 [facility] Comment on above: Delta: 157 on -[id number] recommended reference rangeRandom Glucose Reference Range is dependent on time and content of last meal. Glucose of more than 200 mg/dL in a nonstressed, ambulatory subject supports the diagnosis of Diabetes Mellitus. No Panel InformationOrdered By: Gigi Cooper on 10-12-2023 Estimated GFR (CKD-EPI) 37.711 mL/Min [facility] Creatinine Clearance (Chem 54.56 [facility] No Panel InformationOrdered By: Yesi Murphy on 10-12-2023 Bedside Glucose Comment Glu2: cleaned meter [facility] Phosphate [Mass/volume] in S raymond or PlasmaOrdered By: Gigi Cooper on 10-12-2023 Phosphate [Mass/Vol] 3.4 mg/dL 2.5-4.5 [facility] Potassium [Moles/volume] in Serum or PlasmaOrdered By: Gigi Cooper on 10-12-2023 Potassium [Moles/Vol] 3.9 mmol/L 3.5-5.1 [facility] Serum or plasma anion gap de terminationOrdered By: Gigi Cooper on 10-12-2023 Anion gap [Moles/Vol] 10.1 mmol/L 6.0-15.0 [facility] Sodium [Moles/volume] in Ser um or PlasmaOrdered By: Gigi Cooper on 10-12-2023 Sodium [Moles/Vol] 135 mmol/L 136-145 [facility] Urea nitrogen [Mass/volume] in Serum or PlasmaOrdered By: Gigi Cooper on 10-12-2023 Urea nitrogen [Mass/Vol] 48 mg/dL 7-25 [facility] Automated erythrocytes count in urine sediment (number/area)Ordered By: Gigi Cooper on 10-10-2023 RBC Auto (Urine sed) [#/Area] None seen [HPF] 0-4 [facility] Automated leukocytes count i n urine sediment (number/area)Ordered By: Gigi Cooper on 10-10-2023 WBC Auto (Urine sed) [#/Area] None seen [HPF] 0-4 [facility] Bilirubin Test strip Ql (U)O rdered By: Gigi Cooper on 10-10-2023 Bilirubin Ql (U) Negative Negative [facility] Color Auto (U)Ordered By: Tony Cooper on 10-10-2023 Color (U) Yellow Yellow [facility] Ketones Auto test strip (U) [Mass/Vol]Ordered By: Gigi Cooper on 10-10-2023 Ketones (U) [Mass/Vol] Negative Negative [facility] Laboratory - UrinalysisOrder ed By: Gigi Cooper on 10-10-2023 Hyaline casts LM Ql (Urine sed) 0-8 [LPF] 0-8 [facility] Nitrite Test strip Ql (U)Ord ered By: Gigi Cooper on 10-10-2023 Nitrite Ql (U) Negative Negative [facility] Protein Auto test strip (U) [Mass/Vol]Ordered By: Gigi Cooper on 10-10-2023 Protein (U) [Mass/Vol] 30 mg/dL Negative [facility] Specific gravity Auto test s trip (U) [Rel density]Ordered By: Gigi Cooper on 10-10-2023 Specific gravity (U) [Rel density] 1.008 1.001-1.030 [facility] Squamous epithelial cells de tection in urine sediment by light microscopyOrdered By: Gigi Cooper on 10-10-2023 Epithelial cells.squamous LM Ql (Urine sed) None seen [HPF] 0-2 [facility] Urine bacteria detection by automated methodOrdered By: Gigi Cooper on 10-10-2023 Bacteria Auto Ql (U) None seen None Seen [facility] Urine clarity by refractomet ry automatedOrdered By: Gigi Cooper on 10-10-2023 Clarity Refractometry automated (U) Clear Clear [facility] Urine glucose measurement by automated test strip (mass/volume)Ordered By: Gigi Cooper on 10-10-2023 Glucose Auto test strip (U) [Mass/Vol] Normal mg/dL Normal [facility] Urine hemoglobin detection b y automated test stripOrdered By: Gigi Cooper on 10-10-2023 Hemoglobin Auto test strip Ql (U) Negative Negative [facility] Urine leukocyte esterase det ection by automated test stripOrdered By: Gigi Cooper on 10-10-2023 Leukocyte esterase Auto test strip Ql (U) Negative Negative [facility] Urobilinogen Auto test strip (U) [Mass/Vol]Ordered By: Gigi Cooper on 10-10-2023 Urobilinogen (U) [Mass/Vol] Normal mg/dL Normal [facility] pH Auto test strip (U)Ordere d By: Gigi Cooper on 10-10-2023 pH (U) 5.0 [pH] 5.0-9.0 [facility] Magnesium [Mass/volume] in S raymond or PlasmaOrdered By: Ramses Masters on 10-09-2023 Magnesium [Mass/Vol] 2.0 mg/dL 1.9-2.7 [facility] Nursing Note - Woundon 10-09 Nursing Note - Wound [id number]# 1.00TIFF Normal [facility] Creatinine [Mass/volume] in UrineOrdered By: Hood Zacarias on 10-08-2023 Creatinine (U) [Mass/Vol] 23.0 mg/dL 14.0-26.0 [facility] Protein [Mass/volume] in Uri neOrdered By: Hood Zacarias on 10-08-2023 Protein (U) [Mass/Vol] 40 mg/dL 0-9 [facility] Activated partial thrombopla stin time (aPTT) in platelet poor plasma by coagulation aOrdered By: Jason Mercado on 10-06-2023 aPTT Coag (PPP) [Time] 31.1 s 25.1-36.5 [facility] Comment on above: A hematocrit value g reater than 55% may lead to inaccurate results in coagulation testing. Patients having hematocrit values >55% require a special collection tube for coagulation studies. Please contact the laboratory at [phone] for redraw instructions. Automated erythrocytes count in urine sediment (number/area)Ordered By: Jason Mercado on 10-06-2023 RBC Auto (Urine sed) [#/Area] Innumerable [HPF] 0-4 [facility] Automated leukocytes count i n urine sediment (number/area)Ordered By: Jason Mercado on 10-06-2023 WBC Auto (Urine sed) [#/Area] 1-2 [HPF] 0-4 [facility] Bacterial blood cultureOrder ed By: Jason Mercado on 10-06-2023 Bacteria identified Cx Nom (Bld) NO GROWTH 5 DAYS [facility] Bacteria identified Cx Nom (Bld) NO GROWTH 5 DAYS [facility] Bacteria identified Cx Nom (Bld) NO GROWTH 5 DAYS [facility] Bacteria identified Cx Nom (Bld) NO GROWTH 5 DAYS [facility] Basophils Auto (Bld) [#/Vol] Ordered By: Jason Mercado on 10-06-2023 Basophils (Bld) [#/Vol] 0.1 10*3/uL 0.0-0.2 [facility] Basophils/100 WBC Auto (Bld) Ordered By: Jason Meracdo on 10-06-2023 Basophils/100 WBC (Bld) 1.0 % . [facility] Bilirubin Test strip Ql (U)O rdered By: Jason Mercado on 10-06-2023 Bilirubin Ql (U) Negative Negative [facility] COVID CepheidOrdered By: Myra Mercado on 10-06-2023 SARS-CoV-2 (COVID-19) Ab IA Ql Negative Negative [facility] Comment on above: This is a duplicate [employer] Xpert Xpress CoV-2/Flu/RSV Plus RNA by RT-PCR result to be used for statistical tracking purpose only. SARS-CoV-2 (COVID-19) RNA ERIBERTO+probe Ql (Unsp spec) [facility] SARS-CoV-2 (COVID-19) RNA ERIBERTO+probe Ql (Unsp spec) [facility] Calcium [Mass/volume] in Ser um or PlasmaOrdered By: Jason Mercado on 10-06-2023 Calcium [Mass/Vol] 8.7 mg/dL 8.6-10.3 [facility] Carbon dioxide, total [Moles /volume] in Serum or PlasmaOrdered By: Jason Mercado on 10-06-2023 CO2 [Moles/Vol] 28.2 mmol/L 21.0-31.0 [facility] Chloride [Moles/volume] in S raymond or PlasmaOrdered By: Jason Mercado on 10-06-2023 Chloride [Moles/Vol] 102 mmol/L 98-107 [facility] Color Auto (U)Ordered By: Harpal Mercado on 10-06-2023 Color (U) Yellow Yellow [facility] Creatine kinase [Enzymatic a ctivity/volume] in Serum or PlasmaOrdered By: Jason Mercado on 10-06-2023 CK [Catalytic activity/Vol] 60 U/L 30-223 [facility] Creatinine [Mass/volume] in Serum or PlasmaOrdered By: Jason Mercado on 10-06-2023 Creatinine [Mass/Vol] 1.86 mg/dL 0.70-1.30 [facility] Eosinophils Auto (Bld) [#/Vo l]Ordered By: Jason Mercado on 10-06-2023 Eosinophils (Bld) [#/Vol] 0.2 10*3/uL 0.0-0.45 [facility] Eosinophils/100 WBC Auto (Bl d)Ordered By: Jason Mercado on 10-06-2023 Eosinophils/100 WBC (Bld) 3.0 % . [facility] Erythrocyte distribution wid th Auto (RBC) [Ratio]Ordered By: Jason Mercado on 10-06-2023 Erythrocyte distribution width (RBC) [Ratio] 18.3 % 12.0-14.8 [facility] Glucose [Mass/volume] in Ser um or PlasmaOrdered By: Jason Mercado on 10-06-2023 Glucose [Mass/Vol] 243 mg/dL 70-100 [facility] Comment on above: ADA recommended refe rence rangeRandom Glucose Reference Range is dependent on time and content of last meal. Glucose of more than 200 mg/dL in a nonstressed, ambulatory subject supports the diagnosis of Diabetes Mellitus. Hematocrit Auto (Bld) [Volum e fraction]Ordered By: Jason Mercado on 10-06-2023 Hematocrit (Bld) [Volume fraction] 40.5 % 38.8-50.0 [facility] Hemoglobin [Mass/volume] in BloodOrdered By: Jason Mercado on 10-06-2023 Hemoglobin (Bld) [Mass/Vol] 12.9 g/dL 13.0-17.0 [facility] INR in Platelet poor plasma by Coagulation assayOrdered By: Jason Mercado on 10-06-2023 INR Coag (PPP) [Relative time] 1.0 {INR} [facility] Comment on above: INR Therapeutic Rang e [...] on 10-06-2023 Ketones (U) [Mass/Vol] Negative Negative [facility] Laboratory - Chemistry and C hemistry - challengeOrdered By: Jason Mercado on 10-06-2023 CO2 [Moles/Vol] 30.8 mmol/L 24.0-29.0 [facility] HCO3 (Bld) [Moles/Vol] 28.8 mmol/L 23.0-29.0 [facility] Laboratory - UrinalysisOrder ed By: Jason Mercado on 10-06-2023 Hyaline casts LM Ql (Urine sed) 0-8 [LPF] 0-8 [facility] Lactate [Moles/volume] in Se rum or PlasmaOrdered By: Jason Mercado on 10-06-2023 Lactate [Moles/Vol] 0.7 mmol/L 0.5-2.2 [facility] Leukocytes [#/volume] correc maria guadalupe for nucleated erythrocytes in Blood by Automated counOrdered By: Jason Mercado on 10-06-2023 WBC corrected for nucl RBC Auto (Bld) [#/Vol] 7.0 10*3/uL 4.1-10.5 [facility] Lymphocytes Auto (Bld) [#/Vo l]Ordered By: Jason Mercado on 10-06-2023 Lymphocytes (Bld) [#/Vol] 0.8 10*3/uL 1.00-4.8 [facility] Lymphocytes/100 WBC Auto (Bl d)Ordered By: Jason Mercado on 10-06-2023 Lymphocytes/100 WBC (Bld) 11.2 % . [facility] MCH Auto (RBC) [Entitic mass ]Ordered By: Jason Mercado on 10-06-2023 MCH (RBC) [Entitic mass] 27.3 pg 27.5-35.2 [facility] MCHC Auto (RBC) [Mass/Vol]Or dered By: Jason Mercado on 10-06-2023 MCHC (RBC) [Mass/Vol] 31.9 g/dL 32.5-35.6 [facility] MCV Auto (RBC) [Entitic vol] Ordered By: Jason Mercado on 10-06-2023 MCV (RBC) [Entitic vol] 85.6 fL 83.5-101 [facility] Monocyte distribution width [Entitic volume] in Blood by AutomatedOrdered By: Jason Mercado on 10-06-2023 Monocyte distribution width Auto (Bld) [Entitic vol] 17.40 % 0.00-20.00 [facility] Monocytes Auto (Bld) [#/Vol] Ordered By: Jason Mercado on 10-06-2023 Monocytes (Bld) [#/Vol] 0.7 10*3/uL 0.0-0.8 [facility] Monocytes/100 WBC Auto (Bld) Ordered By: Jason Mercado on 10-06-2023 Monocytes/100 WBC (Bld) 10.0 % . [facility] Natriuretic peptide B [Mass/ Vol]Ordered By: Jason Mercado on 10-06-2023 Natriuretic peptide B (Bld) [Mass/Vol] 131.0 pg/mL 5-100 [facility] Neutrophils Auto (Bld) [#/Vo l]Ordered By: Jason Mercado on 10-06-2023 Neutrophils (Bld) [#/Vol] 5.2 10*3/uL 1.8-7.7 [facility] Neutrophils/100 WBC Auto (Bl d)Ordered By: Jason Mercado on 10-06-2023 Neutrophils/100 WBC (Bld) 74.8 % . [facility] Nitrite Test strip Ql (U)Ord ered By: Jason Mercado on 10-06-2023 Nitrite Ql (U) Negative Negative [facility] No Panel InformationOrdered By: Jason Mercado on 10-06-2023 Blood Gas Critical Value See comment [facility] Comment on above: Critical Value dickerson d on: 10/06/2023 at 21:16 Blood Gas Liter Flow 6 [facility] Blood Gas Sample Site Venous [facility] FiO2 45% % [facility] Oxygen Delivery Device Nasal cannula [facility] Venous Blood Base Excess 0.4 mmol/L -3.0-3.0 [facility] Venous Blood Oxygen Saturation 81.5 % 73.0-76.0 [facility] Venous Blood Partial Pressure CO2 63.9 mm[Hg] 38.0-50.0 [facility] Venous Blood pH 7.27 7.32-7.43 [facility] Estimated GFR (CKD-EPI) 39.912 mL/Min [facility] Creatinine Clearance (Chem 57.52 [facility] Nucleated erythrocytes [Pres ence] in Blood by Automated countOrdered By: Jason Mercado on 10-06-2023 Nucleated RBC Auto Ql (Bld) 0.1 /100{WBC} 0-0.5 [facility] Platelet mean volume Auto (B ld) [Entitic vol]Ordered By: Jason Mercado on 10-06-2023 Platelet mean volume (Bld) [Entitic vol] 6.8 fL 6.6-10.1 [facility] Platelets Auto (Bld) [#/Vol] Ordered By: Jason Mercado on 10-06-2023 Platelets (Bld) [#/Vol] 236 10*3/uL 150-450 [facility] Potassium [Moles/volume] in Serum or PlasmaOrdered By: Jason Mercado on 10-06-2023 Potassium [Moles/Vol] 5.6 mmol/L 3.5-5.1 [facility] Protein Auto test strip (U) [Mass/Vol]Ordered By: Jason Mercado on 10-06-2023 Protein (U) [Mass/Vol] 100 mg/dL Negative [facility] Prothrombin time (PT)Ordered By: Jason Mercado on 10-06-2023 PT Coag (PPP) [Time] 11.4 s 9.0-12.9 [facility] Comment on above: A hematocrit value g reater than 55% may lead to inaccurate results in coagulation testing. Patients having hematocrit values >55% require a special collection tube for coagulation studies. Please contact the laboratory at [phone] for redraw instructions. RBC Auto (Bld) [#/Vol]Ordere d By: Jason Mercado on 10-06-2023 RBC (Bld) [#/Vol] 4.73 10*6/uL 3.90-5.60 [facility] Serum or plasma anion gap de terminationOrdered By: Jason Mercado on 10-06-2023 Anion gap [Moles/Vol] 10.4 mmol/L 6.0-15.0 [facility] Sodium [Moles/volume] in Ser um or PlasmaOrdered By: Jason Mercado on 10-06-2023 Sodium [Moles/Vol] 135 mmol/L 136-145 [facility] Specific gravity Auto test s trip (U) [Rel density]Ordered By: Jason Mercado on 10-06-2023 Specific gravity (U) [Rel density] 1.013 1.001-1.030 [facility] Squamous epithelial cells de tection in urine sediment by light microscopyOrdered By: Jason Mercado on 10-06-2023 Epithelial cells.squamous LM Ql (Urine sed) 0-1 [HPF] 0-2 [facility] Troponin I.cardiac [Mass/vol ume] in Serum or Plasma by Detection limit <= 0.01 ng/Ordered By: Jason Mercado on 10-06-2023 Troponin I.cardiac DL <= 0.01 ng/mL [Mass/Vol] 8.2 pg/mL 0.0-20.0 [facility] Urea nitrogen [Mass/volume] in Serum or PlasmaOrdered By: Jason Mercado on 10-06-2023 Urea nitrogen [Mass/Vol] 53 mg/dL 7-25 [facility] Urine bacteria detection by automated methodOrdered By: Jason Mercado on 10-06-2023 Bacteria Auto Ql (U) None seen None Seen [facility] Urine clarity by refractomet ry automatedOrdered By: Jason Mercado on 10-06-2023 Clarity Refractometry automated (U) Clear Clear [facility] Urine glucose measurement by automated test strip (mass/volume)Ordered By: Jason Mercado on 10-06-2023 Glucose Auto test strip (U) [Mass/Vol] 100 mg/dL Normal [facility] Urine hemoglobin detection b y automated test stripOrdered By: Jason Mercado on 10-06-2023 Hemoglobin Auto test strip Ql (U) 3+ Negative [facility] Urine leukocyte esterase det ection by automated test stripOrdered By: Jaosn Mercado on 10-06-2023 Leukocyte esterase Auto test strip Ql (U) Negative Negative [facility] Urobilinogen Auto test strip (U) [Mass/Vol]Ordered By: Jason Mercado on 10-06-2023 Urobilinogen (U) [Mass/Vol] Normal mg/dL Normal [facility] WBC Auto (Bld) [#/Vol]Ordere d By: Jason Rogelio on 10-06-2023 WBC (Bld) [#/Vol] 7.0 10*3/uL 4.1-10.5 [facility] pH Auto test strip (U)Ordere d By: Jason Rogelio on 10-06-2023 pH (U) 5.0 [pH] 5.0-9.0 [facility] Ambulatory Visit Summaryon 0 10-05-2023 Ambulatory Visit Summary Normal [address], [address] [place] [address]- \.br\ 2023 9:00 AM EDT \.br\ With:\.br\ Where: [facility]br\ Monday 1:15 PM EDT \.br\ With:\.br\ Where: [facility]\.br\ Medications\.br\ What How Much [...] day\.br\ Unchanged Misc Prescription (Freestyle Sage 2 Freeland) See instructions Use daily with sensor \.br\ Unchanged Misc Prescription (Freestyle Sage 2 Sensors) See instructions Apply one q 14 days \.br\ Unchanged Misc Prescription (Glucometer test strips) See instructions Test TID DX E11.40 on insulin \.br\ Unchanged Misc Prescription (Glucometer) See instructions Diabetes mellitus with neuropathy Dispense 1 Glucometer \.br\ Unchanged Misc Prescription (Insulin Pen Washburn 31g x 8 mm) See instructions Use [...] for choosing us for your care.\.br\ \.br\ [facility] Consent for Procedure/Surger yon 10-05-2023 Consent for Procedure/Surgery [id number]#1 .00TIFF Normal [facility] Consent for Treatmenton 09-21 Consent for Treatment [id number]#1 .00TIFF Normal [facility] HBOon 10-04-2023 HBO [id number]# 1.00TIFF Normal [facility] Multi-Wound Charton 10-04-19 24 Multi-Wound Chart [id number]# 1.00TIFF [facility] Nursing Assessment - Woundon 10-04-2023 Nursing Assessment - Wound [id number]# 1.00TIFF [facility] Nursing Note - Woundon 10-04 Nursing Note - Wound [id number]# 1.00TIFF [facility] Physician Orderon 10-04-2023 Physician Order [id number]# 1.00TIFF [facility] Physician Order [id number]# 2.00TIFF [facility] Procedure - Woundon 10-04-19 24 Procedure - Wound [id number]# 1.00TIFF [facility] Progress Note - Woundon 09-21 Progress Note - Wound [id number]# 2.00TIFF [facility] Screenson 10-03-2023 Screens [id number]# 1.00TIFF [facility] CHEMISTRYOrdered By: Lab ROP User on 10-02-2023 Glucose [Mass/Vol] 224 mg/dL High 55 - 99 mg/dL [facility] C POC Subsection POC Device SN [id number] Invalid Interpretation Code [facility] POC Subsection POC User ID [id number] 1 Invalid Interpretation Code [facility] POC Subsection POC Username Deja Boothe Invalid Interpretation Code [facility] POC Subsection Capillary Glucose POCon 09-21 Glucose [Mass/Vol] 224 mg/dL High 55-99 [facility] Comment on above: Performed By: #### 2 [id number] ####[facility] [address] [place] [address] Patient Educationon 02-12-20 24 Patient Education [facility] Pre-Certification Formon Pre-Certification Form [id number]#1 .00TIFF [facility] Urology Office/Clinic Noteon 10-02-2023 Urology Office/Clinic Note Normal [facility] Comment on above: Result Comment: Elec tronically Signed By: BRYAN Bahena APRN, Gisselle Glasgow\.br\Date and Time Signed: 10/02/23 07:51 EST Consent for Procedure/Surger yon 09-28-2023 Consent for Procedure/Surgery [id number]#1 .00TIFF [facility] Correspondence - Woundon Correspondence - Wound [id number]#1 .00TIFF [facility] Correspondence - Wound [id number]#1 .00TIFF [facility] Coding Queryon 09-27-2023 Coding Query [id number]# 1.00TIFF [facility] Insurance Correspondenceon 0 09-27-2023 Insurance Correspondence [id number]#1 .00TIFF [facility] C Urineon 09-26-2023 Bacteria identified Cx Nom (U) [facility] Comment on above: Performed By: #### 2 612337, [id number] ####[facility] [address] [place] [address] Insurance Correspondenceon 0 09-25-2023 Insurance Correspondence [id number]#1 .00TIFF [facility] BMPon 09-24-2023 Anion gap [Moles/Vol] 11 mmol/L Normal 6-16 [facility] Comment on above: Performed By: #### 1 6295438, 6714180, 5799265 ####[facility] [address] [place] [address] BUN/Creat Ratio 29 No Units High 10-20 [facility] Comment on above: Performed By: #### 1 2552759, 0175744, 0345663 ####[facility] [address] [place] [address] Calcium [Mass/Vol] 8.7 mg/dL Low 8.9-11.1 [facility] Comment on above: Performed By: #### 1 4263246, 9566519, 8769633 ####[facility] [address] [place] [address] Chloride [Moles/Vol] 103 mmol/L Normal 101-111 [facility] Comment on above: Performed By: #### 1 8801808, 7375452, 5111838 ####[facility] [address] [place] [address] CO2 [Moles/Vol] 28 mmol/L Normal 21-31 [facility] Comment on above: Performed By: #### 1 2149138, 9794493, 2882301 ####[facility] [address] [place] [address] Creatinine [Mass/Vol] 1.7 mg/dL High 0.5-1.3 [facility] Comment on above: Performed By: #### 1 8981892, 6729380, 9306101 ####[facility] [address] [place] [address] Glucose [Mass/Vol] 280 mg/dL High 55-199 [facility] Comment on above: Performed By: #### 1 1298797, 4105144, 6975188 ####[facility] [address] [place] [address] Potassium [Moles/Vol] 4.9 mmol/L Normal 3.5-5.3 [facility] Comment on above: Performed By: #### 1 2465278, 1444116, 0773088 ####[facility] [address] [place] [address] Sodium [Moles/Vol] 137 mmol/L Normal 135-145 [facility] Comment on above: Performed By: #### 1 4078683, 0130513, 1282358 ####[facility] [address] [place] [address] Urea nitrogen [Mass/Vol] 50 mg/dL High 5-21 [facility] Comment on above: Performed By: #### 1 4924051, 9466159, 0645013 ####[facility] [address] [place] [address] CBC w/ Auto Diffon 4 Basophil Absolute 0.0 E9/L Normal 0.0-0.2 [facility] Comment on above: Performed By: #### 1 0503400, 9773052, 1730218 ####[address] [address] Basophils/100 WBC (Bld) 0.5 % Normal 0.0-2.0 [facility] Comment on above: Performed By: #### 1 2807613, 6850176, 5468315 ####[address] [address] Eos Absolute 0.3 E9/L Normal 0.0-0.5 [facility] Comment on above: Performed By: #### 1 2963566, 7021580, 8014870 ####[address] [address] Eosinophils/100 WBC (Bld) 4.7 % Normal 0.0-8.0 [facility] Comment on above: Performed By: #### 1 8811864, 3872099, 9174412 ####[address] [address] Erythrocyte distribution width (RBC) [Ratio] 17.8 % High 10.9-14.2 [facility] Comment on above: Performed By: #### 1 1817365, 2676314, 5805363 ####[address] [address] Hematocrit (Bld) [Volume fraction] 44.0 % Normal 37.7-49.0 [facility] Comment on above: Performed By: #### 1 2069733, 3127849, 9999282 ####[address] [address] Hemoglobin (Bld) [Mass/Vol] 13.9 g/dL Normal 13.5-17.5 [facility] Comment on above: Performed By: #### 1 1056705, 7987366, 4875657 ####[address] [address] Lymph Absolute 1.1 E9/L Normal 1.0-4.0 [facility] Comment on above: Performed By: #### 1 3999720, 5651464, 1385166 ####[address] [address] Lymphocytes/100 WBC (Bld) 20.1 % Normal 14.0-50.0 [facility] Comment on above: Performed By: #### 1 1618840, 1573686, 1152965 ####[address] [address] MCH (RBC) [Entitic mass] 27.3 pg Normal 27.0-34.0 [facility] Comment on above: Performed By: #### 1 1848840, 5382980, 1235632 ####[address] [address] MCHC (RBC) [Mass/Vol] 31.9 g/dL Normal 31.4-36.0 [facility] Comment on above: Performed By: #### 1 3729387, 7422273, 2359518 ####[address] [address] MCV (RBC) [Entitic vol] 85.7 fL Normal 80.0-100.0 [facility] Comment on above: Performed By: #### 1 0634632, 3301374, 4724465 ####[address] [address] Traill Absolute 0.6 E9/L Normal 0.2-1.0 [facility] Comment on above: Performed By: #### 1 9359828, 8508745, 3040495 ####[address] [place] [address] Monocytes/100 WBC (Bld) 11.0 % Normal 4.0-14.0 [facility] Comment on above: Performed By: #### 1 6427364, 4380530, 8216668 ####[address] [address] Neutro Absolute 3.5 E9/L Normal 2.0-7.5 [facility] Comment on above: Performed By: #### 1 7469690, 2884214, 2334721 ####[address] [address] Neutro Auto 63.7 % Normal 36.0-75.0 [facility] Comment on above: Performed By: #### 1 2095589, 8500627, 4178575 ####[address] [address] Platelet 254.0 E9/L Normal 150.0-500.0 [facility] Comment on above: Performed By: #### 1 3292162, 0953012, 9535485 ####[address] [address] Platelet mean volume (Bld) [Entitic vol] 6.9 fL Normal 6.4-10.8 [facility] Comment on above: Performed By: #### 1 9971203, 3336618, 6614254 ####[address] [place] [address] RBC 5.1 E12/L Normal 4.3-5.9 [facility] Comment on above: Performed By: #### 1 4783302, 0035813, 2598401 ####[address] [place] [address] WBC 5.5 E9/L Normal 4.0-11.0 [facility] Comment on above: Performed By: #### 1 0196021, 2546295, 9565613 ####[facility] [address] [place] [address] CHEMISTRYOrdered By: SYSTEM SYSTEM on 09-24-2023 Anion [...] Chem Consent for Treatmenton Consent for Treatment [id number]#1 .00TIFF Normal [facility] Discharge Instructionson Discharge Instructions [id number]# 1.00TIFF Normal [facility] ED Clinical Summaryon 2023 ED Clinical Summary Normal [facility] ED Note-Physicianon 09-24-19 ED Note-Physician Normal [facility] Comment on above: Result Comment: Elec tronically Signed By: Jose Miguel Phan DO.br\Date and Time Signed: 09/24/23 21:39 EST ED Patient Education Noteon 09-24-2023 ED Patient Education Note Normal [facility] ED Patient Summaryon 024 ED Patient Summary Normal [facility] HEMATOLOGYOrdered By: SYSTEM SYSTEM on 09-24-2023 Basophil [...] Normal 80.0 - 100.0 fL Remisol Heme Traill Absolute 0.6 E9/L Normal 0.2 - 1.0 [...] Urobilinogen Qn (U) 0.2 {Itz'U}/dL Normal 0.0-1.0 [facility] Comment on above: Performed By: #### 2 485285, 73066812 ####[facility] [address] [place] [address] Bacteria LM Ql (Urine sed) TRACE Normal Trace [facility] Comment on above: Performed By: #### 2 953125, 43544389 ####[facility] [address] [place] [address] Bilirubin Ql (U) 1+ Abnormal Negative [facility] Comment on above: Performed By: #### 2 392441, 85231766 ####[facility] [address] [place] [address] Clarity (U) CLOUDY Abnormal Clear [facility] Comment on above: Performed By: #### 2 117519, 11554830 ####[facility] [address] [place] [address] Color (U) RED Abnormal Yellow [facility] Comment on above: Performed By: #### 2 746555, 82828891 ####[address] [address] Epithelial cells.squamous LM.HPF (Urine sed) [#/Area] 3-4 Normal 0-2 [facility] Comment on above: Performed By: #### 2 900930, 18877931 ####[facility] [address] [place] [address] Glucose Test strip (U) [Mass/Vol] 2+ Abnormal Negative [facility] Comment on above: Performed By: #### 2 743333, 56605655 ####[facility] [address] [place] [address] Hemoglobin Ql (U) 3+ Abnormal Negative [facility] Comment on above: Performed By: #### 2 160197, 26292883 ####[facility] [address] [place] [address] Ketones (U) [Mass/Vol] Negative Normal Negative [facility] Comment on above: Performed By: #### 2 356386, 50614283 ####[facility] [address] [place] [address] Odanah.plasma/Lithi um.RBC (Bld) [Mass ratio] >75 Abnormal 0-3 [facility] Comment on above: Performed By: #### 2 703783, 37111552 ####[facility] [address] [place] [address] Nitrite Ql (U) Positive Abnormal Negative [facility] Comment on above: Performed By: #### 2 076745, 18531767 ####[address] [address] pH (U) 5.5 [pH] Invalid Interpretation Code 5.0-9.0 [facility] Comment on above: Performed By: #### 2 743720, 75811409 ####[facility] [address] [place] [address] Protein (U) [Mass/Vol] 3+ Abnormal Negative [facility] Comment on above: Performed By: #### 2 073084, 98759960 ####[address] [address] Specific gravity (U) [Rel density] 1.025 Invalid Interpretation Code 1.005-1.030 [facility] Comment on above: Performed By: #### 2 651818, 92548038 ####[facility] [address] [place] [address] Type of Urine collection method Catheter Normal [facility] Comment on above: Performed By: #### 2 317005, 11299715 ####[facility] [address] [place] [address] WBC Auto Ql (U) Negative Normal Negative [facility] Comment on above: Performed By: #### 2 029463, 31739224 ####[facility] [address] [place] [address] WBC LM.HPF (Urine sed) [#/Area] 0-5 Normal 0-5 [facility] Comment on above: Performed By: #### 2 189291, 32817820 ####[facility] [address] [place] [address] URINALYSISOrdered By: Richa Quinn on 09-24-2023 Bacteria [...] PM) Normal Negative [facility] UA Auto SS Odanah.plasma/Lithi um.RBC (Bld) [Mass ratio] >75 /HPF Invalid [...] PM) Invalid Interpretation Code 1.005 - 1.030 [facility] UA Auto SS UA Spec Desc Catheter (09/24/23 8:26 PM) Normal [facility] UA Auto SS Urobilinogen Qn (U) 0.3815856 {Itz'U}/dL Normal 0.0 - 1.0 EU/dL [facility] UA Auto SS WBC Auto Ql (U) Negative (09/24/23 8:26 PM) Normal Negative [facility] UA Auto SS WBC LM.HPF (Urine sed) [#/Area] 0-5 /HPF Normal 0-5/HPF [facility] UA Auto SS eGFRon 09-24-2023 eGFR 44 mL/min/1.73 m2 Low >=59 [facility] Comment on above: Order Comment: Order added by Discern Expert. Performed By: #### 1 9230739, 9003539, 2225072 ####[facility] [address] [place] [address] Insurance Correspondence Off iceon 09-20-2023 Insurance Correspondence Office [id number]# 1.00TIFF [facility] C Blood Charcoalon Blood Culture Charcoal Normal [facility] Comment on above: Performed By: #### 1 0956841 ####[facility] [address] [place] [address] Discharge Instructionson Discharge Instructions [id number]# 1.00TIFF [facility] Consent for Procedure/Surger yon 09-18-2023 Consent for Procedure/Surgery [id number]#1 .00TIFF [facility] Consent for Treatmenton 08-22 Consent for Treatment [id number]#1 .00TIFF [facility] Discharge Instructionson Discharge Instructions [id number] #1.00TIFF [facility] ED Clinical Summaryon 2023 ED Clinical [facility] ED Note-Physicianon 09-17-19 24 ED Note-Physician Normal [facility] Comment on above: Result Comment: Elec tronically Signed By: Alejandro Silva M.D.\Date and Time Signed: 09/17/23 19:00 EST ED Patient Education Noteon 09-17-2023 ED Patient Education Note Normal [facility] ED Patient Summaryon 024 ED Patient Summary Normal [facility] BMPon 09-16-2023 Anion gap [Moles/Vol] 10 mmol/L Normal 6-16 [facility] Comment on above: Performed By: #### 2 475425, 16285416, 3014670, 5424009 ####[facility] [address] [place] [address] BUN/Creat Ratio 24 No Units High 10-20 [facility] Comment on above: Performed By: #### 2 582358, 61938809, 1265696, 0902226 ####[facility] [address] [place] [address] Calcium [Mass/Vol] 8.2 mg/dL Low 8.9-11.1 [facility] Comment on above: Performed By: #### 2 574260, 84130945, 7154394, 2088793 ####[facility] [address] [place] [address] Chloride [Moles/Vol] 97 mmol/L Low 101-111 [facility] Comment on above: Performed By: #### 2 219185, 06410086, 3941968, 2903484 ####[facility] [address] [facility] [address] CO2 [Moles/Vol] 33 mmol/L High 21-31 [facility] Comment on above: Performed By: #### 2 607619, 36902870, 4316417, 3972650 ####[facility] [address] [place] [address] Creatinine [Mass/Vol] 1.6 mg/dL High 0.5-1.3 [facility] Comment on above: Performed By: #### 2 051059, 57983366, 7607667, 2235267 ####[facility] [address] [place] [address] Glucose [Mass/Vol] 191 mg/dL Normal 55-199 [facility] Comment on above: Performed By: #### 2 010819, 40112360, 4858420, 8512625 ####[facility] [address] [place] [address] Potassium [Moles/Vol] 4.0 mmol/L Normal 3.5-5.3 [facility] Comment on above: Performed By: #### 2 829484, 51629806, 7668718, 5609320 ####[address] [address] Sodium [Moles/Vol] 136 mmol/L Normal 135-145 [facility] Comment on above: Performed By: #### 2 505009, 02990837, 5425785, 6739998 ####[facility] [address] [place] [address] Urea nitrogen [Mass/Vol] 38 mg/dL High 5-21 [facility] Comment on above: Performed By: #### 2 089161, 84282128, 0074520, 9156448 ####[address] [address] CBC w/ Auto Diffon 4 Basophil Absolute 0.0 E9/L Normal 0.0-0.2 [facility] Comment on above: Performed By: #### 2 021956, 61595504, 3380280, 3509467 ####[address] [place] [address] Basophils/100 WBC (Bld) 0.7 % Normal 0.0-2.0 [facility] Comment on above: Performed By: #### 2 843488, 75663640, 2655915, 8117995 ####[facility] [address] [place] [address] Eos Absolute 0.4 E9/L Normal 0.0-0.5 [facility] Comment on above: Performed By: #### 2 035593, 37236901, 1317563, 5093423 ####[address] [place] [address] Eosinophils/100 WBC (Bld) 6.9 % Normal 0.0-8.0 [facility] Comment on above: Performed By: #### 2 786625, 19036961, 7865425, 3030377 ####[address] [address] Erythrocyte distribution width (RBC) [Ratio] 17.4 % High 10.9-14.2 [facility] Comment on above: Performed By: #### 2 667930, 38214391, 8543462, 6408401 ####[address] [address] Hematocrit (Bld) [Volume fraction] 44.0 % Normal 37.7-49.0 [facility] Comment on above: Performed By: #### 2 404237, 77939573, 1543054, 2078499 ####[address] [address] Hemoglobin (Bld) [Mass/Vol] 13.8 g/dL Normal 13.5-17.5 [facility] Comment on above: Performed By: #### 2 088152, 44465221, 2268314, 6703739 ####[address] [place] [address] Lymph Absolute 1.4 E9/L Normal 1.0-4.0 [facility] Comment on above: Performed By: #### 2 353192, 32012333, 6242018, 6707294 ####[address] [address] Lymphocytes/100 WBC (Bld) 21.5 % Normal 14.0-50.0 [facility] Comment on above: Performed By: #### 2 463476, 83108743, 4681122, 1279698 ####[address] [address] MCH (RBC) [Entitic mass] 27.0 pg Normal 27.0-34.0 [facility] Comment on above: Performed By: #### 2 513077, 89481418, 7773849, 7106486 ####[address] [address] MCHC (RBC) [Mass/Vol] 31.3 g/dL Low 31.4-36.0 [facility] Comment on above: Performed By: #### 2 863320, 99573316, 3850255, 9448892 ####[address] [address] MCV (RBC) [Entitic vol] 86.3 fL Normal 80.0-100.0 [facility] Comment on above: Performed By: #### 2 718189, 77635855, 4099564, 2207958 ####[address] [address] Traill Absolute 0.8 E9/L Normal 0.2-1.0 [facility] Comment on above: Performed By: #### 2 086961, 86440387, 0534378, 3778041 ####[address] [address] Monocytes/100 WBC (Bld) 13.0 % Normal 4.0-14.0 [facility] Comment on above: Performed By: #### 2 830666, 74799660, 7439181, 8353262 ####[address] [address] Neutro Absolute 3.8 E9/L Normal 2.0-7.5 [facility] Comment on above: Performed By: #### 2 475137, 65162544, 2669668, 7347052 ####[address] [place] [address] Neutro Auto 57.9 % Normal 36.0-75.0 [facility] Comment on above: Performed By: #### 2 516614, 22464257, 7660694, 4677741 ####[facility] [address] [place] [address] Platelet 231.0 E9/L Normal 150.0-500.0 [facility] Comment on above: Performed By: #### 2 619298, 40825810, 7008783, 0205767 ####[facility] [address] [place] [address] Platelet mean volume (Bld) [Entitic vol] 7.0 fL Normal 6.4-10.8 [facility] Comment on above: Performed By: #### 2 752686, 85168906, 0695095, 0890906 ####[facility] [address] [place] [address] RBC 5.1 E12/L Normal 4.3-5.9 [facility] Comment on above: Performed By: #### 2 048364, 94148349, 9675054, 1884865 ####[facility] [address] [place] [address] WBC 6.5 E9/L Normal 4.0-11.0 [facility] Comment on above: Performed By: #### 2 498421, 24496236, 1904638, 6049347 ####[facility] [address] [place] [address] Capillary Glucose POCon 08-22 Glucose [Mass/Vol] 198 mg/dL High 55-99 [facility] Comment on above: Result Comment: Thelma maxwell RN/ Performed By: #### 2 36548769 ####[facility] [address] [place] [address] Inpatient Clinical Summaryon 09-16-2023 Inpatient Clinical Summary Normal [facility] Inpatient Patient Summaryon 09-16-2023 Inpatient Patient Summary Normal [facility] Inpatient Patient Summary Normal [facility] Interdisciplinary Note - Yimi e Manageron 09-16-2023 Interdisciplinary Note - [facility] Director Patient DC before CRM rounded in room today Normal [facility] Comment on above: Result Comment: Elec tronically Signed By: Jodee Giang\.samir\Date and Time Signed: 09/16/23 11:26 EST Magnesiumon 09-16-2023 Magnesium [Mass/Vol] 1.9 mg/dL Normal 1.3-2.4 [facility] Comment on above: Performed By: #### 2 023661, 93715855, 8873343, 4422732 ####[facility] [address] [place] [address] Monitor Recordon 09-16-2023 Monitor Record [id number]# 1.00TIFF Normal [facility] Monitor Record [id number] 1 [id number]# 1.00TIFF Normal [facility] Monitor Record [id number] 1 [id number]# 1.00TIFF Normal [facility] eGFRon 09-16-2023 eGFR 48 mL/min/1.73 m2 Low >=59 [facility] Comment on above: Order Comment: Order added by Discern Expert. Performed By: #### 2 942402, [id number], 6119076, 1214699 ####[facility] [address] [place] [address] BMPon 09-15-2023 Anion gap [Moles/Vol] 8 mmol/L Normal 6-16 [facility] Comment on above: Performed By: #### 2 523500, 5033911, 10661220 ####[facility] [address] [place] [address] BUN/Creat Ratio 25 No Units High 10-20 [facility] Comment on above: Performed By: #### 2 740313, 2283925, 78255768 ####[facility] [address] [place] [address] Calcium [Mass/Vol] 8.4 mg/dL Low 8.9-11.1 [facility] Comment on above: Performed By: #### 2 453160, 4840380, 65325866 ####[facility] [address] [place] [address] Chloride [Moles/Vol] 94 mmol/L Low 101-111 [facility] Comment on above: Performed By: #### 2 692647, 3255977, 22639948 ####[facility] [address]em[address] [facility] [place] [address] CO2 [Moles/Vol] 38 mmol/L High 21-31 [facility] Comment on above: Performed By: #### 2 576888, 9278032, 36394115 ####[facility] [address]hdreere[address] [facility] [address] Creatinine [Mass/Vol] 1.7 mg/dL High 0.5-1.3 [facility] Comment on above: Performed By: #### 2 508130, 3598338, 02329907 ####[facility] [address] [place] [address] Glucose [Mass/Vol] 154 mg/dL Normal 55-199 [facility] Comment on above: Performed By: #### 2 273723, 0616329, 94522053 ####[facility] [address] [place] [address] Potassium [Moles/Vol] 4.1 mmol/L Normal 3.5-5.3 [facility] Comment on above: Performed By: #### 2 311158, 8802928, 32915837 ####[facility] [address]ls[address] [place] [address] Sodium [Moles/Vol] 136 mmol/L Normal 135-145 [facility] Comment on above: Performed By: #### 2 314380, 0775523, 15214802 ####[facility] Fv[address] [place] [address] Urea nitrogen [Mass/Vol] 43 mg/dL High 5-21 [facility] Comment on above: Performed By: #### 2 346627, 0873200, 53563282 ####[facility] [address] [place] [address] C Woundon 09-15-2023 Wound Culture Normal [facility] Comment on above: Performed By: #### 2 847122 ####[facility] [address] [place] [address] CBC w/ Auto Diffon Basophil Absolute 0.0 E9/L Normal 0.0-0.2 [facility] Comment on above: Performed By: #### 2 343826 ####[address] [address] Basophils/100 WBC (Bld) 0.6 % Normal 0.0-2.0 [facility] Comment on above: Performed By: #### 2 160008 ####[address] [address] Eos Absolute 0.3 E9/L Normal 0.0-0.5 [facility] Comment on above: Performed By: #### 2 510429 ####[address] [address] Eosinophils/100 WBC (Bld) 5.0 % Normal 0.0-8.0 [facility] Comment on above: Performed By: #### 2 760813 ####[address] [address] Erythrocyte distribution width (RBC) [Ratio] 17.9 % High 10.9-14.2 [facility] Comment on above: Performed By: #### 2 467669 ####[address] [address] Hematocrit (Bld) [Volume fraction] 45.0 % Normal 37.7-49.0 [facility] Comment on above: Performed By: #### 2 842984 ####[address] [address] Hemoglobin (Bld) [Mass/Vol] 14.3 g/dL Normal 13.5-17.5 [facility] Comment on above: Performed By: #### 2 063355 ####[address] [address] Lymph Absolute 1.3 E9/L Normal 1.0-4.0 [facility] Comment on above: Performed By: #### 2 872398 ####[address] [address] Lymphocytes/100 WBC (Bld) 19.3 % Normal 14.0-50.0 [facility] Comment on above: Performed By: #### 2 718476 ####[address] [address] MCH (RBC) [Entitic mass] 27.5 pg Normal 27.0-34.0 [facility] Comment on above: Performed By: #### 2 160006 ####[address] [address] MCHC (RBC) [Mass/Vol] 31.6 g/dL Normal 31.4-36.0 [facility] Comment on above: Performed By: #### 2 072527 ####[address] [address] MCV (RBC) [Entitic vol] 87.1 fL Normal 80.0-100.0 [facility] Comment on above: Performed By: #### 2 312164 ####[address] [address] Traill Absolute 0.7 E9/L Normal 0.2-1.0 [facility] Comment on above: Performed By: #### 2 437999 ####[address] [address] Monocytes/100 WBC (Bld) 10.9 % Normal 4.0-14.0 [facility] Comment on above: Performed By: #### 2 479907 ####[address] [address] Neutro Absolute 4.2 E9/L Normal 2.0-7.5 [facility] Comment on above: Performed By: #### 2 830804 ####[facility] [address] [place] [address] Neutro Auto 64.2 % Normal 36.0-75.0 [facility] Comment on above: Performed By: #### 2 906242 ####[facility] [address] [place] [address] Platelet 238.0 E9/L Normal 150.0-500.0 [facility] Comment on above: Performed By: #### 2 916489 ####[facility] [address] [place] [address] Platelet mean volume (Bld) [Entitic vol] 7.0 fL Normal 6.4-10.8 [facility] Comment on above: Performed By: #### 2 456103 ####[address] [place] [address] RBC 5.2 E12/L Normal 4.3-5.9 [facility] Comment on above: Performed By: #### 2 461043 ####[facility] [address] [place] [address] WBC 6.6 E9/L Normal 4.0-11.0 [facility] Comment on above: Performed By: #### 2 007260 ####[facility] [address] [place] [address] Capillary Glucose POCon 08-22 Glucose [Mass/Vol] 230 mg/dL High 55-99 [facility] Comment on above: Performed By: #### 2 19614165 ####[facility] [address]ztvfcmwt078 [place] [address] Glucose [Mass/Vol] 187 mg/dL High 55-99 [facility] Comment on above: Result Comment: Thelma maxwell RN/ Performed By: #### 2 22139778 ####[facility] [address]xf[address] [place] [address] Glucose [Mass/Vol] 281 mg/dL High 55-99 [facility] Comment on above: Result Comment: Thelma maxwell RN/ Performed By: #### 2 02184066 ####[facility] Onwmizxsol[address] [place] [address] Glucose [Mass/Vol] 298 mg/dL High 55-99 [facility] Comment on above: Result Comment: Thelma maxwell RN/ Performed By: #### 2 05250634 ####[facility] [address]te[address]ju205 [place] [address] Glucose [Mass/Vol] 167 mg/dL High 55-99 [facility] Comment on above: Result Comment: Thelma maxwell RN/ Performed By: #### 2 11031900 ####[facility] [address] [place] [address] Interdisciplinary Note - Yimi e Manageron 09-15-2023 Interdisciplinary Note - [facility] Director Normal [facility] Comment on above: Result Comment: Elec tronically Signed By: Sasha Garcia\.br\Date and Time Signed: 09/15/23 15:52 EST Magnesiumon 09-15-2023 Magnesium [Mass/Vol] 1.7 mg/dL Normal 1.3-2.4 [facility] Comment on above: Performed By: #### 2 084408, 3863771, 96778712 ####[facility] [address] [place] [address] Progress Note-Physicianon Progress Note-Physician Normal [facility] Comment on above: Result Comment: Elec tronically Signed By: Ida LYMAN, Pippa Mabry\.br\Date and Time Signed: 09/15/23 16:08 EST Progress Note-Physician Normal [facility] Comment on above: Result Comment: Elec tronically Signed By: Kayla Garcia MD\.br\Date and Time Signed: 09/15/23 10:03 EST eGFRon 09-15-2023 eGFR 44 mL/min/1.73 m2 Low >=59 [facility] Comment on above: Order Comment: Order added by Discern Expert. Performed By: #### 2 002042, 0562594, 37797218 ####[facility] [address] [place] [address] BMPon 09-14-2023 Anion gap [Moles/Vol] 13 mmol/L Normal 6-16 [facility] Comment on above: Performed By: #### 2 314860, 53149151 ####[facility] [address] [place] [address] BUN/Creat Ratio 24 No Units High 10-20 [facility] Comment on above: Performed By: #### 2 827879, 18280711 ####[facility] [address] [place] [address] Calcium [Mass/Vol] 8.6 mg/dL Low 8.9-11.1 [facility] Comment on above: Performed By: #### 2 199946, 44505803 ####[facility] [address] [place] [address] Chloride [Moles/Vol] 94 mmol/L Low 101-111 [facility] Comment on above: Performed By: #### 2 942939, 83923242 ####[facility] [address] [place] [address] CO2 [Moles/Vol] 33 mmol/L High 21-31 [facility] Comment on above: Performed By: #### 2 077323, 16182577 ####[facility] [address] [place] [address] Creatinine [Mass/Vol] 1.9 mg/dL High 0.5-1.3 [facility] Comment on above: Performed By: #### 2 179465, 29516121 ####[facility] [address] [place] [address] Glucose [Mass/Vol] 215 mg/dL High 55-199 [facility] Comment on above: Performed By: #### 2 485477, 31130689 ####[facility] [address] [place] [address] Potassium [Moles/Vol] 4.3 mmol/L Normal 3.5-5.3 [facility] Comment on above: Performed By: #### 2 684876, 72098040 ####[facility] [address] [place] [address] Sodium [Moles/Vol] 136 mmol/L Normal 135-145 [facility] Comment on above: Performed By: #### 2 113952, 24068475 ####[facility] [address] [place] [address] Urea nitrogen [Mass/Vol] 46 mg/dL High 5-21 [facility] Comment on above: Performed By: #### 2 591138, 52161142 ####[facility] [address] [place] [address] Anion gap [Moles/Vol] 9 mmol/L Normal 6-16 [facility] Comment on above: Performed By: #### 1 4896466, 3041876 ####[facility] [address]unvv[address] [place] [address] BUN/Creat Ratio 26 No Units High 10-20 [facility] Comment on above: Performed By: #### 1 8145449, 3392476 ####[facility] [address]odwqi[address] [place] [address] Calcium [Mass/Vol] 8.7 mg/dL Low 8.9-11.1 [facility] Comment on above: Performed By: #### 1 0382159, 7094413 ####[facility] [address]vcl[address] [place] [address] Chloride [Moles/Vol] 96 mmol/L Low 101-111 [facility] Comment on above: Performed By: #### 1 3882070, 8421923 ####[facility] [address]bskfuenso[address] [place] [address] CO2 [Moles/Vol] 35 mmol/L High 21-31 [facility] Comment on above: Performed By: #### 1 2405431, 7639539 ####[facility] X[address]xaupct480 [place] [address] Creatinine [Mass/Vol] 1.8 mg/dL High 0.5-1.3 [facility] Comment on above: Performed By: #### 1 2157408, 9245533 ####[facility] [address] [place] [address] Glucose [Mass/Vol] 226 mg/dL High 55-199 [facility] Comment on above: Performed By: #### 1 4309988, 1401741 ####[facility] [address] [place] [address] Potassium [Moles/Vol] 4.4 mmol/L Normal 3.5-5.3 [facility] Comment on above: Performed By: #### 1 6852191, 5962426 ####[facility] [address]zbmnf[address] [place] [address] Sodium [Moles/Vol] 136 mmol/L Normal 135-145 [facility] Comment on above: Performed By: #### 1 6955567, 1119530 ####[facility] [address] [place] [address] Urea nitrogen [Mass/Vol] 46 mg/dL High 5-21 [facility] Comment on above: Performed By: #### 1 6758787, 6060921 ####[facility] [address] [place] [address] Anion gap [Moles/Vol] 8 mmol/L Normal 6-16 [facility] Comment on above: Performed By: #### 2 089150, 7508091, 0650977, 71392782 ####[facility] V[address]zsayb[address] [place] [address] BUN/Creat Ratio 25 No Units High 10-20 [facility] Comment on above: Performed By: #### 2 605766, 4442795, 7419764, 93745666 ####[facility] [address]efqxx[address] [place] [address] Calcium [Mass/Vol] 8.3 mg/dL Low 8.9-11.1 [facility] Comment on above: Performed By: #### 2 318264, 0371433, 7138409, 77044600 ####[facility] [address] [place] [address] Chloride [Moles/Vol] 97 mmol/L Low 101-111 [facility] Comment on above: Performed By: #### 2 179847, 5868010, 0707814, 18306017 ####[facility] [address] [facility] [address] CO2 [Moles/Vol] 36 mmol/L High 21-31 [facility] Comment on above: Performed By: #### 2 257825, 8689657, 0656522, 19378628 ####[facility] [address]it[address] [place] [address] Creatinine [Mass/Vol] 1.9 mg/dL High 0.5-1.3 [facility] Comment on above: Performed By: #### 2 738033, 3391857, 2105616, 51429631 ####[facility] [address] [place] [address] Glucose [Mass/Vol] 172 mg/dL Normal 55-199 [facility] Comment on above: Performed By: #### 2 940856, 4763179, 0976075, 63671571 ####[facility] [address]uzrcslj[address] AveN[facility] [address] Potassium [Moles/Vol] 4.5 mmol/L Normal 3.5-5.3 [facility] Comment on above: Performed By: #### 2 585024, 0488205, 3639246, 40885844 ####[facility] [address]ylwoz[address] [place] [address] Sodium [Moles/Vol] 136 mmol/L Normal 135-145 [facility] Comment on above: Performed By: #### 2 831810, 1206093, 9926383, 61700406 ####[facility] Wpgtuxztbr850 [address] [place] [address] Urea nitrogen [Mass/Vol] 47 mg/dL High 5-21 [facility] Comment on above: Performed By: #### 2 629852, 8984709, 8481095, 86829094 ####[facility] [address] [place] [address] Anion gap [Moles/Vol] 10 mmol/L Normal 6-16 [facility] Comment on above: Performed By: #### 1 3309413, 3433017 ####[facility] [address]uzhxwo998 [place] [address] BUN/Creat Ratio 25 No Units High 10-20 [facility] Comment on above: Performed By: #### 1 1416216, 8092136 ####[facility] [address] [facility] [place] [address] Calcium [Mass/Vol] 8.3 mg/dL Low 8.9-11.1 [facility] Comment on above: Performed By: #### 1 9278895, 7691234 ####[facility] [address]wh[address]993 [place] [address] Chloride [Moles/Vol] 96 mmol/L Low 101-111 [facility] Comment on above: Performed By: #### 1 8569354, 6746664 ####[facility] [address] [place] [address] CO2 [Moles/Vol] 35 mmol/L High 21-31 [facility] Comment on above: Performed By: #### 1 1804479, 3659063 ####[facility] [address]djjmqxzgj410 [place] [address] Creatinine [Mass/Vol] 1.9 mg/dL High 0.5-1.3 [facility] Comment on above: Performed By: #### 1 5129021, 9401654 ####[facility] [address] [place] [address] Glucose [Mass/Vol] 284 mg/dL High 55-199 [facility] Comment on above: Performed By: #### 1 4112054, 2587408 ####[facility] [address] [place] [address] Potassium [Moles/Vol] 4.6 mmol/L Normal 3.5-5.3 [facility] Comment on above: Performed By: #### 1 5311963, 8127065 ####[facility] [address]xjvkyf695 [place] [address] Sodium [Moles/Vol] 136 mmol/L Normal 135-145 [facility] Comment on above: Performed By: #### 1 2935432, 7620458 ####[address] [place] [address] Urea nitrogen [Mass/Vol] 48 mg/dL High 5-21 [facility] Comment on above: Performed By: #### 1 0750535, 0951548 ####[address] [address] CBC w/ Auto Diffon 4 Basophil Absolute 0.1 E9/L Normal 0.0-0.2 [facility] Comment on above: Performed By: #### 2 817786, 9656913, 6387111, 28489041 ####[address] [address] Basophils/100 WBC (Bld) 1.0 % Normal 0.0-2.0 [facility] Comment on above: Performed By: #### 2 021687, 1346274, 4564810, 86034766 ####[address] [address] Eos Absolute 0.2 E9/L Normal 0.0-0.5 [facility] Comment on above: Performed By: #### 2 365358, 2287163, 1393067, 15190720 ####[address] [address] Eosinophils/100 WBC (Bld) 3.1 % Normal 0.0-8.0 [facility] Comment on above: Performed By: #### 2 315779, 7257135, 4702402, 85295865 ####[address] [address] Erythrocyte distribution width (RBC) [Ratio] 18.1 % High 10.9-14.2 [facility] Comment on above: Performed By: #### 2 067478, 8599548, 8997900, 63265669 ####[facility] [address] [place] [address] Hematocrit (Bld) [Volume fraction] 42.0 % Normal 37.7-49.0 [facility] Comment on above: Performed By: #### 2 557660, 0737753, 7993482, 20592223 ####[facility] [address] [place] [address] Hemoglobin (Bld) [Mass/Vol] 13.3 g/dL Low 13.5-17.5 [facility] Comment on above: Performed By: #### 2 232448, 5150158, 2353204, 77070549 ####[address] [address] Lymph Absolute 1.9 E9/L Normal 1.0-4.0 [facility] Comment on above: Performed By: #### 2 053889, 4331380, 9177451, 71271651 ####[address] [address] Lymphocytes/100 WBC (Bld) 23.5 % Normal 14.0-50.0 [facility] Comment on above: Performed By: #### 2 895701, 5359530, 1836481, 81994317 ####[address] [address] MCH (RBC) [Entitic mass] 27.8 pg Normal 27.0-34.0 [facility] Comment on above: Performed By: #### 2 706637, 0296853, 3227825, 66663863 ####[address] [address] MCHC (RBC) [Mass/Vol] 31.7 g/dL Normal 31.4-36.0 [facility] Comment on above: Performed By: #### 2 656629, 8833841, 6521583, 74162387 ####[facility] [address] [place] [address] MCV (RBC) [Entitic vol] 87.6 fL Normal 80.0-100.0 [facility] Comment on above: Performed By: #### 2 967225, 6548389, 4048836, 33868651 ####[facility] [address] [place] [address] Traill Absolute 0.8 E9/L Normal 0.2-1.0 [facility] Comment on above: Performed By: #### 2 918831, 0594095, 5221078, 58685422 ####[address] [address] Monocytes/100 WBC (Bld) 10.0 % Normal 4.0-14.0 [facility] Comment on above: Performed By: #### 2 362798, 7932773, 7171454, 09412650 ####[address] [address] Neutro Absolute 5.0 E9/L Normal 2.0-7.5 [facility] Comment on above: Performed By: #### 2 803895, 1645873, 0246918, 25589607 ####[facility] [address] [place] [address] Neutro Auto 62.4 % Normal 36.0-75.0 [facility] Comment on above: Performed By: #### 2 578300, 8698911, 4481429, 71904903 ####[facility] [address] [place] [address] Platelet 217.0 E9/L Normal 150.0-500.0 [facility] Comment on above: Performed By: #### 2 356941, 3017685, 1060839, 40957354 ####[facility] [address] [place] [address] Platelet mean volume (Bld) [Entitic vol] 6.8 fL Normal 6.4-10.8 [facility] Comment on above: Performed By: #### 2 362729, 6538479, 2487798, 08532937 ####[facility] [address] [place] [address] RBC 4.8 E12/L Normal 4.3-5.9 [facility] Comment on above: Performed By: #### 2 396092, 1613399, 7927610, 71701410 ####[facility] [address] [place] [address] WBC 7.9 E9/L Normal 4.0-11.0 [facility] Comment on above: Performed By: #### 2 982911, 7229487, 7883711, 21443734 ####[facility] [address]174 [place] [address] CT Abdomen/Pelvis w/o Contra ston 09-14-2023 CT Abdomen/Pelvis w/o Contrast Normal [facility] Capillary Glucose POCon 08-22 Glucose [Mass/Vol] 294 mg/dL High 55-99 [facility] Comment on above: Result Comment: Thelma BAE Performed By: #### 2 96280713 ####[facility] [address] [place] [address] Glucose [Mass/Vol] 244 mg/dL High 55-99 [facility] Comment on above: Result Comment: Thelma BAE Performed By: #### 2 03299480 ####[facility] [address]fr[address] [place] [address] Glucose [Mass/Vol] 284 mg/dL High 55-99 [facility] Comment on above: Result Comment: Thelma BAE Performed By: #### 2 33974636 ####[facility] [address] [place] [address] Glucose [Mass/Vol] 164 mg/dL High 55-99 [facility] Comment on above: Result Comment: Thelma BAE Performed By: #### 2 15014735 ####[facility] [address] [place] [address] Interdisciplinary Note - Yimi e Manageron 09-14-2023 Interdisciplinary Note - [facility] Director [facility] Comment on above: Result Comment: Elec tronically Signed By: Jodee Giang\.br\Date and Time Signed: 09/14/23 10:25 EST Interdisciplinary Note - Oscar n 09-14-2023 Interdisciplinary Note - OT OT [facility] six clicks score 15/24 = SNF. Patient requires assist w/ all transfers and adls when compared to baseline. Pt does live home alone. Inpatient OT services to follow daily to progress as tolerates w/ functional skills. Normal [facility] Magnesiumon 09-14-2023 Magnesium [Mass/Vol] 1.8 mg/dL Normal 1.3-2.4 [facility] Comment on above: Performed By: #### 2 770687, 0399052, 3526394, 28997314 ####[facility] [address] [place] [address] Message from Medicareon 08-22 Message from Medicare [id number]# 1.00TIFF [facility] Monitor Recordon 09-14-2023 Monitor Record [id number] 1 [id number]# 1.00TIFF [facility] Monitor Record [id number] 1 [id number]# 1.00TIFF [facility] Progress Note-Physicianon Progress Note-Physician [facility] Comment on above: Result Comment: Elec tronically Signed By: Sasha Stevens NP\.br\Date and Time Signed: 09/14/23 15:54 EST\.br\Electronically Co-Signed By: Flakita Morgan MD\.br\Date and Time Co-Signed: 09/14/23 20:02 EST Progress Note-Physician [facility] Comment on above: Result Comment: Elec tronically Signed By: Shaquille Alex Jr., PA-C\.br\Date and Time Signed: 09/14/23 19:56 EST Progress Note-Physician [facility] Comment on above: Result Comment: Elec tronically Signed By: Rowdy LYMAN, Unruly Laurent\.br\Date and Time Signed: 09/14/23 19:53 EST Progress Note-Physician Normal [facility] Comment on above: Result Comment: Elec tronically Signed By: Kayla Garcia MD\.br\Date and Time Signed: 09/14/23 12:47 EST eGFRon 09-14-2023 eGFR 39 mL/min/1.73 m2 Low >=59 [facility] Comment on above: Order Comment: Order added by Discern Expert. Performed By: #### 2 147436, 15037747 ####[facility] [address] [place] [address] eGFR 41 mL/min/1.73 m2 Low >=59 [facility] Comment on above: Order Comment: Order added by Discern Expert. Performed By: #### 1 8646926, 1002261 ####[facility] [address] [place] [address] eGFR 39 mL/min/1.73 m2 Low >=59 [facility] Comment on above: Order Comment: Order added by Discern Expert. Performed By: #### 2 753111, 6846469, 5835275, 21813037 ####[facility] [address] [place] [address] eGFR 39 mL/min/1.73 m2 Low >=59 [facility] Comment on above: Order Comment: Order added by Discern Expert. Performed By: #### 1 [id number], [id number] ####[facility] [address]elfuxv[address] [place] [address] BMPon 09-13-2023 Anion gap [Moles/Vol] 9 mmol/L Normal 6-16 [facility] Comment on above: Performed By: #### 2 132506, [id number] ####[facility] [address]hrneqvw[address] [place] [address] BUN/Creat Ratio 26 No Units High 10-20 [facility] Comment on above: Performed By: #### 2 740966, [id number] ####[facility] [address]zbstq[address] [place] [address] Calcium [Mass/Vol] 8.5 mg/dL Low 8.9-11.1 [facility] Comment on above: Performed By: #### 2 404137, 89946308 ####[facility] [address]jvdmps[address] [place] [address] Chloride [Moles/Vol] 96 mmol/L Low 101-111 [facility] Comment on above: Performed By: #### 2 079604, 37701935 ####[facility] [address]df[address] [place] [address] CO2 [Moles/Vol] 34 mmol/L High 21-31 [facility] Comment on above: Performed By: #### 2 497358, 45823332 ####[facility] [address] [place] [address] Creatinine [Mass/Vol] 2.0 mg/dL High 0.5-1.3 [facility] Comment on above: Performed By: #### 2 910407, 83344465 ####[facility] [address] [place] [address] Glucose [Mass/Vol] 340 mg/dL High 55-199 [facility] Comment on above: Performed By: #### 2 705270, 93433133 ####[facility] [address] [place] [address] Potassium [Moles/Vol] 5.0 mmol/L Normal 3.5-5.3 [facility] Comment on above: Performed By: #### 2 325998, 87973916 ####[facility] [address] [place] [address] Sodium [Moles/Vol] 134 mmol/L Low 135-145 [facility] Comment on above: Performed By: #### 2 544835, 72650476 ####[facility] [address] [place] [address] Urea nitrogen [Mass/Vol] 51 mg/dL High 5-21 [facility] Comment on above: Performed By: #### 2 436364, 65615150 ####[facility] Gjivgvbbly[address] [place] [address] Anion gap [Moles/Vol] 10 mmol/L Normal 6-16 [facility] Comment on above: Performed By: #### 1 0468951, 1099105 ####[facility] [address]wsxxj[address] [place] [address] BUN/Creat Ratio 26 No Units High 10-20 [facility] Comment on above: Performed By: #### 1 1696812, 9930226 ####[facility] [address]of[address] [place] [address] Calcium [Mass/Vol] 8.6 mg/dL Low 8.9-11.1 [facility] Comment on above: Performed By: #### 1 9256976, 5685692 ####[facility] [address]qdupooy[address] [place] [address] Chloride [Moles/Vol] 100 mmol/L Low 101-111 [facility] [place] Comment on above: Performed By: #### 1 0788524, 3834583 ####[facility] [address]twirmvj387 [place] [address] CO2 [Moles/Vol] 33 mmol/L High 21-31 [facility] Comment on above: Performed By: #### 1 2961645, 7258768 ####[facility] [address]js[address]nsl[address] [place] [address] Creatinine [Mass/Vol] 2.0 mg/dL High 0.5-1.3 [facility] Comment on above: Performed By: #### 1 8075504, 9705804 ####[facility] [address]wmrdhpa152 [place] [address] Glucose [Mass/Vol] 239 mg/dL High 55-199 [facility] Comment on above: Performed By: #### 1 6551768, 3524273 ####[facility] [address]codujosf100 [place] [address] Potassium [Moles/Vol] 5.0 mmol/L Normal 3.5-5.3 [facility] Comment on above: Performed By: #### 1 9912693, 5189194 ####[facility] [address]qpct[address] [place] [address] Sodium [Moles/Vol] 138 mmol/L Normal 135-145 [facility] Comment on above: Performed By: #### 1 0555829, 6205143 ####[facility] [address] [place] [address] Urea nitrogen [Mass/Vol] 51 mg/dL High 5-21 [facility] Comment on above: Performed By: #### 1 7184481, 3856514 ####[facility] [address]vhwkgjbrx[address] [place] [address] Anion gap [Moles/Vol] 10 mmol/L Normal 6-16 [facility] Comment on above: Performed By: #### 1 6384748, 1727393 ####[facility] [address]fpogxw443 [place] [address] BUN/Creat Ratio 26 No Units High 10-20 [facility] Comment on above: Performed By: #### 1 8804320, 7722615 ####[facility] [address]hnvpm[address] [place] [address] Calcium [Mass/Vol] 8.7 mg/dL Low 8.9-11.1 [facility] Comment on above: Performed By: #### 1 4083540, 8113702 ####[facility] Cxrjlvxugx979 [place] [address] Chloride [Moles/Vol] 101 mmol/L Normal 101-111 [facility] Comment on above: Performed By: #### 1 5096889, 0861570 ####[facility] Cpltydyttv[address] [place] [address] CO2 [Moles/Vol] 33 mmol/L High 21-31 [facility] Comment on above: Performed By: #### 1 4837267, 8360116 ####[facility] T[address]qpcgafb430 [place] [address] Creatinine [Mass/Vol] 2.0 mg/dL High 0.5-1.3 [facility] Comment on above: Performed By: #### 1 9972983, 4383875 ####[facility] [address]wtuellqxp663 [place] [address] Glucose [Mass/Vol] 149 mg/dL Normal 55-199 [facility] Comment on above: Performed By: #### 1 5393399, 0137690 ####[facility] [address]csxpj720 [place] [address] Potassium [Moles/Vol] 4.9 mmol/L Normal 3.5-5.3 [facility] Comment on above: Performed By: #### 1 6855228, 6707198 ####[address] [address] Sodium [Moles/Vol] 139 mmol/L Normal 135-145 [facility] Comment on above: Performed By: #### 1 8395794, 6781605 ####[facility] [address] [place] [address] Urea nitrogen [Mass/Vol] 51 mg/dL High 5-21 [facility] Comment on above: Performed By: #### 1 6502141, 4105544 ####[facility] [address] [place] [address] Anion gap [Moles/Vol] 11 mmol/L Normal 6-16 [facility] Comment on above: Performed By: #### 2 949385, 61543933 ####[facility] [address]of[address] [place] [address] BUN/Creat Ratio 26 No Units High 10-20 [facility] Comment on above: Performed By: #### 2 942757, 13598202 ####[facility] [address]zkpd[address] [place] [address] Calcium [Mass/Vol] 8.6 mg/dL Low 8.9-11.1 [facility] Comment on above: Performed By: #### 2 684145, 75581219 ####[place] [address] [facility] [place] [address] Chloride [Moles/Vol] 103 mmol/L Normal 101-111 [facility] Comment on above: Performed By: #### 2 387104, 51408578 ####[facility] [address]zvrruajnx[address] [place] [address] CO2 [Moles/Vol] 31 mmol/L Normal 21-31 [facility] Comment on above: Performed By: #### 2 211916, 09882906 ####[facility] Syeweavhyl[address] [facility] [address] Creatinine [Mass/Vol] 2.1 mg/dL High 0.5-1.3 [facility] Comment on above: Performed By: #### 2 176062, 19222851 ####[facility] [address]yp[address]waj[address] [place] [address] Glucose [Mass/Vol] 154 mg/dL Normal 55-199 [facility] Comment on above: Performed By: #### 2 691122, 59044380 ####[facility] [address]ew[address]ws[address] [place] [address] Potassium [Moles/Vol] 5.2 mmol/L Normal 3.5-5.3 [facility] Comment on above: Performed By: #### 2 780482, 28838302 ####[facility] X[address] [place] [address] Sodium [Moles/Vol] 140 mmol/L Normal 135-145 [facility] Comment on above: Performed By: #### 2 063080, 15858882 ####[facility] Mcrnfrx[address]as[address] [place] [address] Urea nitrogen [Mass/Vol] 54 mg/dL High 5-21 [facility] Comment on above: Performed By: #### 2 530222, 86423374 ####[facility] [address] [place] [address] Anion gap [Moles/Vol] 8 mmol/L Normal 6-16 [facility] Comment on above: Performed By: #### 2 436278, 2546831, 20129517 ####[facility] [address] [place] [address] BUN/Creat Ratio 25 No Units High 10-20 [facility] Comment on above: Performed By: #### 2 270742, 8594326, 52710916 ####[facility] [address]arfxi640 [place] [address] Calcium [Mass/Vol] 8.3 mg/dL Low 8.9-11.1 [facility] Comment on above: Performed By: #### 2 930697, 0175382, 56679595 ####[facility] [address]hhftojh142 [place] [address] Chloride [Moles/Vol] 104 mmol/L Normal 101-111 [facility] Comment on above: Performed By: #### 2 803095, 7282733, 42940781 ####[facility] [address]psl[address]fe[address] [place] [address] CO2 [Moles/Vol] 33 mmol/L High 21-31 [facility] Comment on above: Performed By: #### 2 300425, 4822061, 58948675 ####[facility] [address]gduptb135 [place] [address] Creatinine [Mass/Vol] 2.2 mg/dL High 0.5-1.3 [facility] Comment on above: Performed By: #### 2 068100, 0552906, 69904425 ####[facility] [address]zjcsrjnca513 [place] [address] Glucose [Mass/Vol] 170 mg/dL Normal 55-199 [facility] Comment on above: Performed By: #### 2 318717, 8902144, 31970527 ####[facility] Eleldagnjw781 [place] [address] Potassium [Moles/Vol] 5.4 mmol/L High 3.5-5.3 [facility] Comment on above: Performed By: #### 2 290100, 7102383, 89350183 ####[facility] [address] [place] [address] Sodium [Moles/Vol] 140 mmol/L Normal 135-145 [facility] Comment on above: Performed By: #### 2 971546, 6590979, 56264828 ####[facility] [address] [place] [address] Urea nitrogen [Mass/Vol] 55 mg/dL High 5-21 [facility] Comment on above: Performed By: #### 2 448691, 4138772, 75002589 ####[facility] [address] [place] [address] Anion gap [Moles/Vol] 10 mmol/L Normal 6-16 [facility] Comment on above: Performed By: #### 2 574287, 74257117 ####[facility] [address] [place] [address] BUN/Creat Ratio 24 No Units High 10-20 [facility] Comment on above: Performed By: #### 2 830371, 53395495 ####[facility] [address] [place] [address] Calcium [Mass/Vol] 8.6 mg/dL Low 8.9-11.1 [facility] Comment on above: Performed By: #### 2 821495, 93163110 ####[facility] [address] [place] [address] Chloride [Moles/Vol] 105 mmol/L Normal 101-111 [facility] Comment on above: Performed By: #### 2 247595, 73687774 ####[facility] [address] [place] [address] CO2 [Moles/Vol] 30 mmol/L Normal 21-31 [facility] Comment on above: Performed By: #### 2 434947, 25910112 ####[facility] [address] [place] [address] Creatinine [Mass/Vol] 2.3 mg/dL High 0.5-1.3 [facility] Comment on above: Performed By: #### 2 531681, 89222795 ####[facility] [address]ce[address] [place] [address] Glucose [Mass/Vol] 208 mg/dL High 55-199 [facility] Comment on above: Performed By: #### 2 828785, 85662778 ####[facility] [address]vfwpo[address] [place] [address] Potassium [Moles/Vol] 5.2 mmol/L Normal 3.5-5.3 [facility] Comment on above: Performed By: #### 2 482920, 21328071 ####[place] [address] [place] [address] Sodium [Moles/Vol] 140 mmol/L Normal 135-145 [facility] Comment on above: Performed By: #### 2 397781, 47352379 ####[facility] [address] [place] [address] Urea nitrogen [Mass/Vol] 54 mg/dL High 5-21 [facility] Comment on above: Performed By: #### 2 394312, 21470685 ####[facility] [address] [place] [address] Blood Gas Art, with Lytes, G hugh, [place] 09-13-2023 a/A Ratio Art 37.80 % Normal >=0.80 [facility] Comment on above: Performed By: #### 4 18368344 ####[facility] [address]ch[address] [place] [address] AaDO2 Art 150.0 mmHg High 5.0-15.0 [facility] Comment on above: Performed By: #### 4 81601899 ####[facility] [address]holvuq[address] [place] [address] ACT. Rate 16 Invalid Interpretation Code [facility] Comment on above: Performed By: #### 4 78263648 ####[facility] [address]ms[address] [place] [address] Allens Test Positive Normal [facility] Comment on above: Performed By: #### 4 88523378 ####[facility] [address]38 [facility] [place] [address] Base Excess Arterial 6.3 mmol/L Normal >=2.8 [facility] Comment on above: Performed By: #### 4 13481286 ####[facility] Irt[address]551 [facility] [place] [address] BiPAP 09/04 Invalid Interpretation Code [facility] Comment on above: Performed By: #### 4 63291712 ####[place] [address] [facility] [place] [address] cCa2+ Art 4.87 mg/dL Normal 4.40-5.30 [facility] Comment on above: Performed By: #### 4 44028142 ####[address] [place] [address] cCl- Art 102.0 mmol/L Normal 101.0-111.0 [facility] Comment on above: Performed By: #### 4 88298435 ####[place] [address] [facility] [place] [address] cGlu Art 162 mg/dL High 55-99 [facility] Comment on above: Performed By: #### 4 44616362 ####[facility] [address] [facility] [place] [address] cK+ Art 5.3 mmol/L Normal 3.5-5.3 [facility] Comment on above: Performed By: #### 4 94453665 ####[place] [address] [facility] [place] [address] cLac Art .7 mmol/L Normal .5-2.2 [facility] Comment on above: Performed By: #### 4 80461379 ####[facility] Kkt[address]407 [facility] [place] [address] roofer applicator+ Art 143.0 mmol/L Normal 135.0-145.0 [facility] Comment on above: Performed By: #### 4 73535471 ####[facility] [address]as230 [place] [address] Drawn by tsb Invalid Interpretation Code [facility] Comment on above: Performed By: #### 4 08853572 ####[facility] [address]qkbew032 [place] [address] FCOHb Art 1.1 % Low 1.5-4.9 [facility] Comment on above: Result Comment: Refe rence rangeNonsmoker <1.5%Smoker <5.0%Heavy Smoker <9.0% Performed By: #### 4 14002063 ####[facility] [address]buahcpuv482 [place] [address] FIO2 BG 45.0 Invalid Interpretation Code [facility] Comment on above: Performed By: #### 4 87850636 ####[address] [address] FMetHb Art 0.5 % Normal 0.0-1.9 [facility] Comment on above: Performed By: #### 4 82996721 ####[address] [address] FO2Hb Art 95.9 % Normal 93.0-100.0 [facility] Comment on above: Performed By: #### 4 53720741 ####[address] [address] HCO3 (Bld) [Moles/Vol] 30.1 mmol/L High 22.0-26.0 [facility] Comment on above: Performed By: #### 4 64977733 ####[facility] [address]hfzdszhlj145 [place] [address] Hemoglobin (Bld) [Mass/Vol] 14.3 g/dL Normal 12.0-17.0 [facility] Comment on above: Performed By: #### 4 47810744 ####[facility] [address] [place] [address] MECH. Rate 14 Invalid Interpretation Code [facility] Comment on above: Performed By: #### 4 77853292 ####[facility] [address] [place] [address] MV 13 Invalid Interpretation Code [facility] Comment on above: Performed By: #### 4 72081067 ####[address] [address] Oxygen saturation in Blood 97.5 % Normal 95.0-100.0 [facility] Comment on above: Performed By: #### 4 56428541 ####[address] [address] P CO2 Arterial 66.6 mmHg High 35.0-45.0 [facility] Comment on above: Performed By: #### 4 50995759 ####[address] [address] P O2 Arterial 91.1 mmHg Normal 80.0-100.0 [facility] Comment on above: Performed By: #### 4 15296622 ####[place] [address] pH Arterial 7.326 Low 7.350-7.450 [facility] Comment on above: Performed By: #### 4 49751644 ####[address] [address] Sample Site R Radial Normal [facility] Comment on above: Performed By: #### 4 07830774 ####[address] [address] Sample Type Arterial Draw Normal [facility] Comment on above: Performed By: #### 4 02722205 ####[address] [address] CBC w/ Auto Diffon 4 Basophil Absolute 0.0 E9/L Normal 0.0-0.2 [facility] Comment on above: Performed By: #### 2 402750, 8353746, 66694055 ####[address] [address] Basophils/100 WBC (Bld) 0.4 % Normal 0.0-2.0 [facility] Comment on above: Performed By: #### 2 411067, 3909363, 37753967 ####[facility] [address] [place] [address] Eos Absolute 0.0 E9/L Normal 0.0-0.5 [facility] Comment on above: Performed By: #### 2 297885, 6540643, 60277949 ####[place] [address] [place] [address] Eosinophils/100 WBC (Bld) 0.0 % Normal 0.0-8.0 [facility] Comment on above: Performed By: #### 2 828070, 8277098, 96403761 ####[address] [address] Erythrocyte distribution width (RBC) [Ratio] 17.6 % High 10.9-14.2 [facility] Comment on above: Performed By: #### 2 530654, 9376733, 13508595 ####[address] [address] Hematocrit (Bld) [Volume fraction] 43.0 % Normal 37.7-49.0 [facility] Comment on above: Performed By: #### 2 297779, 3357823, 21044309 ####[address] [address] Hemoglobin (Bld) [Mass/Vol] 13.6 g/dL Normal 13.5-17.5 [facility] Comment on above: Performed By: #### 2 473163, 9145570, 97501819 ####[place] [address] [place] [address] Lymph Absolute 0.7 E9/L Low 1.0-4.0 [facility] Comment on above: Performed By: #### 2 366254, 1279958, 93732353 ####[facility] [address] [place] [address] Lymphocytes/100 WBC (Bld) 10.8 % Low 14.0-50.0 [facility] Comment on above: Performed By: #### 2 141435, 1077978, 98402661 ####[facility] [address] [place] [address] MCH (RBC) [Entitic mass] 27.7 pg Normal 27.0-34.0 [facility] Comment on above: Performed By: #### 2 795513, 8342383, 73441472 ####[address] [address] MCHC (RBC) [Mass/Vol] 31.6 g/dL Normal 31.4-36.0 [facility] Comment on above: Performed By: #### 2 999830, 1780441, 59930541 ####[address] [address] MCV (RBC) [Entitic vol] 87.5 fL Normal 80.0-100.0 [facility] Comment on above: Performed By: #### 2 689741, 3593427, 81564796 ####[address] [address] Traill Absolute 0.6 E9/L Normal 0.2-1.0 [facility] Comment on above: Performed By: #### 2 479034, 6414392, 40200108 ####[address] [address] Monocytes/100 WBC (Bld) 9.5 % Normal 4.0-14.0 [facility] Comment on above: Performed By: #### 2 588276, 7516697, 06333753 ####[address] [address] Neutro Absolute 5.0 E9/L Normal 2.0-7.5 [facility] Comment on above: Performed By: #### 2 009604, 4965448, 11512424 ####[address] [address] Neutro Auto 79.3 % High 36.0-75.0 [facility] Comment on above: Performed By: #### 2 883495, 6563897, 33840287 ####[facility] [address] [place] [address] Platelet 207.0 E9/L Normal 150.0-500.0 [facility] Comment on above: Performed By: #### 2 946010, 8853124, 85754295 ####[facility] [address] [place] [address] Platelet mean volume (Bld) [Entitic vol] 7.2 fL Normal 6.4-10.8 [facility] Comment on above: Performed By: #### 2 023749, 5672321, 63440343 ####[address] [address] RBC 4.9 E12/L Normal 4.3-5.9 [facility] Comment on above: Performed By: #### 2 728470, 3392541, 38396575 ####[address] [address] WBC 6.3 E9/L Normal 4.0-11.0 [facility] Comment on above: Performed By: #### 2 255219, 2906630, 27366249 ####[facility] [address] [place] [address] Capillary Glucose POCon 08-22 Glucose [Mass/Vol] 357 mg/dL High 55-99 [facility] Comment on above: Result Comment: Thelma BAE Performed By: #### 2 64984370 ####[facility] [address] [place] [address] Glucose [Mass/Vol] 235 mg/dL High 55-99 [facility] Comment on above: Result Comment: Thelma BAE Performed By: #### 2 47975760 ####[facility] [address]750 [place] [address] Glucose [Mass/Vol] 153 mg/dL High 55-99 [facility] Comment on above: Result Comment: Thelma BAE Performed By: #### 2 71138341 ####[place] [address] [place] [address] Glucose [Mass/Vol] 137 mg/dL High [address] [place] [address] Comment on above: Result Comment: Thelma BAE Performed By: #### 2 25062847 ####[address] [address] Glucose [Mass/Vol] 157 mg/dL High [address] [place] [address] Comment on above: Result Comment: Thelma BAE Performed By: #### 2 13668612 ####[address] [address] Glucose [Mass/Vol] 169 mg/dL [address] Comment on above: Result Comment: Thelma BAE Performed By: #### 2 16024372 ####[address] [address] Glucose [Mass/Vol] 166 mg/dL [address] Comment on above: Result Comment: Thelma BAE Performed By: #### 2 66109763 ####[address] [address] Glucose [Mass/Vol] 170 mg/dL [address] Comment on above: Result Comment: Thelma BAE Performed By: #### 2 76618421 ####[address] [address] Glucose [Mass/Vol] 165 mg/dL [address] Comment on above: Performed By: #### 2 74271450 ####[address] [address] Glucose [Mass/Vol] 159 mg/dL [address] Comment on above: Result Comment: Thelma BAE Performed By: #### 2 05333988 ####[address] [address] Glucose [Mass/Vol] 178 mg/dL High 55-99 [facility] Comment on above: Result Comment: Thelma BAE Performed By: #### 2 99584457 ####[facility] [address] [place] [address] Glucose [Mass/Vol] 143 mg/dL High 55-99 [facility] Comment on above: Result Comment: Thelma BAE Performed By: #### 2 76369637 ####[facility] [address] [place] [address] Glucose [Mass/Vol] 192 mg/dL High 55-99 [facility] Comment on above: Result Comment: Thelma BAE Performed By: #### 2 93309353 ####[facility] [address] [place] [address] Glucose [Mass/Vol] 201 mg/dL High 55-99 [facility] Comment on above: Result Comment: Thelma BAE Performed By: #### 2 18495996 ####[facility] [address] [place] [address] Glucose [Mass/Vol] 242 mg/dL High 55-99 [facility] Comment on above: Result Comment: Thelma BAE Performed By: #### 2 46447003 ####[facility] [address] [facility] [place] [address] Coding Queryon 09-13-2023 Coding Query Normal [facility] Coding Query Normal [facility] Consultation Noteon 09-13-19 24 Consultation Note Normal [facility] Comment on above: Result Comment: Elec tronically Signed By: Rowdy LYMAN, Unruly Laurent\.br\Date and Time Signed: 09/13/23 19:06 EST Consultation Note Normal [facility] Comment on above: Result Comment: Elec tronically Signed By: Flakita Morgan MD\.br\Date and Time Signed: 09/13/23 10:18 EST [employer] w/ C ontraston 09-13-2023 [employer] w/ Contrast Normal [facility] EewC9ihd 09-13-2023 HbA1c (Bld) [Mass fraction] 11.8 % High <=5.9 [facility] Comment on above: Order Comment: Order placed by EKM rule. [id number] Performed By: #### 7 [id number] ####[facility] [address] [place] [address] Insurance Correspondence Off iceon 09-13-2023 Insurance Correspondence Office [phone] [id number] #[id number] Normal [facility] Interdisciplinary Note - Yimi e Manageron 09-13-2023 Interdisciplinary [facility] - [facility] Comment on above: Result Comment: Elec tronically Signed By: Jodee Giang\.br\Date and Time Signed: 09/13/23 14:06 EST Interdisciplinary Note - PTo n 09-13-2023 Interdisciplinary Note - PT Normal [facility] Monitor Recordon 09-13-2023 Monitor Record [id number] 1 [id number]# 1.00TIFF Normal [facility] Monitor Record [id number] 1 [id number]# 1.00TIFF Normal [facility] Monitor Record [id number] 1 [id number]# 1.00TIFF [facility] Monitor Record [id number] 1 [id number]# 1.00TIFF Normal [facility] Monitor Record [id number] 1 [id number]# 1.00TIFF Normal [facility] Monitor Record [id number] 1 [id number]# 1.00TIFF Normal [facility] Nursing Note - Woundon 09-13 Nursing Note - Wound [id number] 01 [id number]# 2.00TIFF [facility] Progress Note-Physicianon Progress Note-Physician [facility] Comment on above: Result Comment: Elec tronically Signed By: Ida LYMAN, Pippa Mabry\.br\Date and Time Signed: 09/13/23 15:56 EST Progress Note-Physician Normal [facility] Comment on above: Result Comment: Elec tronically Signed By: Jose LYMAN, Kayla\.br\Date and Time Signed: 09/13/23 11:23 EST Respiratory Panel by PCRon 0 09-13-2023 Adenovirus DNA ERIBERTO+non-probe Ql (Nph) Not detected Normal [facility] Comment on above: Result Comment: Test ing was performed using nucleic acid amplification including Influenza A, Influenza A H1, Influenza A H3, Influenza B, RSV A, RSV B, Adenovirus, Human Metapneumovirus, Parainfluenza 1,2,3, and 4, Rhinovirus, Bordetella parapertussis/bronchiseptica, Bordetella holmesii, and Bordetella pertussis. Performed By: #### 1 [id number] ####[address] [address] B. parapertussis DNA ERIBERTO+probe Ql (Upper resp) Not detected Normal Not Detected [facility] Comment on above: Performed By: #### 1 [id number] ####[address] [place] [address] B. pertussis DNA ERIBERTO+probe Ql (Upper resp) Not detected Normal Not Detected [facility] Comment on above: Performed By: #### 1 [id number] ####[facility] [address] [place] [address] FLUAV H1 RNA ERIBERTO+non-probe Ql (Nph) Not detected Normal [facility] Comment on above: Performed By: #### 1 [id number] ####[facility] [address] [place] [address] FLUAV H3 RNA ERIBERTO+non-probe Ql (Nph) Not detected Normal [facility] Comment on above: Performed By: #### 1 [id number] ####[address] [place] [address] FLUAV RNA ERIBERTO+non-probe Ql (Nph) Not detected Normal [facility] Comment on above: Performed By: #### 1 [id number] ####[address] [place] [address] FLUBV RNA ERIBERTO+non-probe Ql (Nph) Not detected Normal [facility] Comment on above: Performed By: #### 1 [id number] ####[address] [address] Human Metapneumovirus Not detected Normal [facility] Comment on above: Result Comment: This test result should be correlated with clinical presentations and medical history by a healthcare provider to determine its clinical significance. Performed By: #### 1 [id number] ####[address] [address] Parainfluenza virus 1 RNA ERIBERTO+non-probe Ql (Nph) Not detected Normal [facility] Comment on above: Performed By: #### 1 [id number] ####[address] [address] Parainfluenza virus 2 RNA ERIBERTO+non-probe Ql (Nph) Not detected Normal [facility] Comment on above: Performed By: #### 1 [id number] ####[address] [address] Parainfluenza virus 3 RNA ERIBERTO+non-probe Ql (Nph) Not detected Normal [facility] Comment on above: Performed By: #### 1 [id number] ####[address] [address] Parainfluenza virus 4 RNA ERIBERTO+non-probe Ql (Nph) Not detected Normal [facility] Comment on above: Performed By: #### 1 [id number] ####[address] [address] Resp Panel Intrl QC Pass Normal [facility] Comment on above: Performed By: #### 1 [id number] ####[address] [address] Rhinovirus+Enterovir us RNA ERIBERTO+non-probe Ql (Nph) Not detected Normal [facility] Comment on above: Performed By: #### 1 [id number] ####[facility] [address] [place] [address] RSV RNA ERIBERTO+non-probe Ql (Nph) Not detected Normal [facility] Comment on above: Performed By: #### 1 [id number] ####[facility] [address] [place] [address] UA With Cult Reflexon 2023 Bilirubin Ql (U) Negative Normal Negative [facility] Comment on above: Performed By: #### 1 [id number] ####[address] [address] Clarity (U) CLEAR Normal Clear [facility] Comment on above: Performed By: #### 1 [id number] ####[address] [address] Color (U) YELLOW Normal Yellow [facility] Comment on above: Performed By: #### 1 [id number] ####[facility] [address] [place] [address] Epithelial cells.squamous LM.HPF (Urine sed) [#/Area] 0-2 Normal 0-2 [facility] Comment on above: Performed By: #### 1 [id number] ####[facility] [address] [place] [address] Glucose Test strip (U) [Mass/Vol] 3+ Abnormal Negative [facility] Comment on above: Performed By: #### 1 [id number] ####[facility] [address] [place] [address] Hemoglobin Ql (U) 1+ Abnormal Negative [facility] Comment on above: Performed By: #### 1 [id number] ####[facility] [address] [place] [address] Ketones (U) [Mass/Vol] Negative Normal Negative [facility] Comment on above: Performed By: #### 1 [id number] ####[facility] [address] [place] [address] [place] [address] Odanah.plasma/Lithi um.RBC (Bld) [Mass ratio] 0-3 Normal 0-3 [facility] Comment on above: Performed By: #### 1 [id number] ####[address] [address] Nitrite Ql (U) Negative Normal Negative [facility] Comment on above: Performed By: #### 1 [id number] ####[place] [address] pH (U) 5.5 [pH] Invalid Interpretation Code 5.0-9.0 [facility] Comment on above: Performed By: #### 1 [id number] ####[place] [address] Protein (U) [Mass/Vol] TRACE Abnormal Negative [facility] Comment on above: Performed By: #### 1 4384493 ####[place] [address] Specific gravity (U) [Rel density] 1.015 Invalid Interpretation Code 1.005-1.030 [facility] Comment on above: Performed By: #### 1 4943705 ####[place] [address] Type of Urine collection method Clean Catch Normal [facility] Comment on above: Performed By: #### 1 4351231 ####[address] [address] Urobilinogen Qn (U) 0.2 {Itz'U}/dL Normal 0.0-1.0 [facility] Comment on above: Performed By: #### 1 [id number] ####[address] [address] WBC Auto Ql (U) Negative Normal Negative [facility] Comment on above: Performed By: #### 1 9409824 ####[address] [address] WBC LM.HPF (Urine sed) [#/Area] 0-5 Normal 0-5 [facility] Comment on above: Performed By: #### 1 [id number] ####[facility] [address] [facility] [place] [address] US LE Venous Duplex Bilatera aria 09-13-2023 US LE Venous Duplex Bilateral Normal [facility] US Renalon 09-13-2023 US Renal Normal [facility] XR Chest Single Viewon 09-13 XR Chest Single View Normal Fish er [facility] eGFRon 09-13-2023 eGFR 36 mL/min/1.73 m2 Low >=59 [facility] Comment on above: Order Comment: Order added by Discern Expert. Performed By: #### 2 775979, [id number] ####[facility] [address] [facility] [place] [address] eGFR 36 mL/min/1.73 m2 Low >=59 [facility] Comment on above: Order Comment: Order added by Discern Expert. Performed By: #### 1 [id number], 8272505 ####[facility] [address] [facility] [place] [address] eGFR 36 mL/min/1.73 m2 Low >=59 [facility] Comment on above: Order Comment: Order added by Discern Expert. Performed By: #### 1 9962256, 5395825 ####[facility] [address] [facility] [place] [address] eGFR 34 mL/min/1.73 m2 Low >=59 [facility] Comment on above: Order Comment: Order added by Discern Expert. Performed By: #### 2 144445, 88680296 ####[facility] [address] [facility] [place] [address] eGFR 32 mL/min/1.73 m2 Low >=59 [facility] Comment on above: Order Comment: Order added by Discern Expert. Performed By: #### 2 295342, 5532926, [id number] ####[facility] [address] [facility] [place] [address] eGFR 31 mL/min/1.73 m2 Low >=59 [facility] Comment on above: Order Comment: Order added by Discern Expert. Performed By: #### 2 983227, [id number] ####[facility] [address] [place] [address] BMPon 09-12-2023 Anion gap [Moles/Vol] 12 mmol/L Normal 6-16 [facility] Comment on above: Performed By: #### 1 1393287, 2805563 ####[facility] [address] [place] [address] BUN/Creat Ratio 23 No Units High 10-20 [facility] Comment on above: Performed By: #### 1 6109600, 2357036 ####[address] [address] Calcium [Mass/Vol] 8.4 mg/dL Low 8.9-11.1 [facility] Comment on above: Performed By: #### 1 4373896, 3764587 ####[address] [address] Chloride [Moles/Vol] 102 mmol/L Normal 101-111 [facility] Comment on above: Performed By: #### 1 1561985, 2183329 ####[facility] [address] [place] [address] CO2 [Moles/Vol] 30 mmol/L Normal 21-31 [facility] Comment on above: Performed By: #### 1 8670743, 2174014 ####[facility] [address] [place] [address] Creatinine [Mass/Vol] 2.5 mg/dL High 0.5-1.3 [facility] Comment on above: Performed By: #### 1 7888752, 4432198 ####[facility] [address] [place] [address] Glucose [Mass/Vol] 463 mg/dL Abnormal 55-199 [facility] Comment on above: Result Comment: Crit ical Result Verified by Previous ResultCritical Result [id number] Called to and read back by: MARLEN SHEETS at: 09/12/2023 22:01:54 by:PRADEEP KERR Performed By: #### 1 [id number], 4168523 ####[facility] [address] [place] [address] Potassium [Moles/Vol] 5.6 mmol/L High 3.5-5.3 [facility] Comment on above: Performed By: #### 1 8896678, 8570171 ####[facility] [address] [place] [address] Sodium [Moles/Vol] 138 mmol/L Normal 135-145 [facility] Comment on above: Performed By: #### 1 3491909, 3749008 ####[address] [address] Urea nitrogen [Mass/Vol] 57 mg/dL High 5-21 [facility] Comment on above: Performed By: #### 1 0052788, 5841654 ####[address] [address] Anion gap [Moles/Vol] 12 mmol/L Normal 6-16 [facility] Comment on above: Performed By: #### 2 466237, 73868475, 2260386 ####[facility] [address] [place] [address] BUN/Creat Ratio 22 No Units High 10-20 [facility] Comment on above: Performed By: #### 2 652003, 89569953, 6663506 ####[facility] [address] [place] [address] Calcium [Mass/Vol] 8.4 mg/dL Low 8.9-11.1 [facility] Comment on above: Performed By: #### 2 626043, 10064682, 5169183 ####[facility] [address] [place] [address] Chloride [Moles/Vol] 100 mmol/L Low 101-111 [facility] Comment on above: Performed By: #### 2 323336, 21188578, 8625821 ####[facility] [address] [place] [address] CO2 [Moles/Vol] 28 mmol/L Normal 21-31 [facility] Comment on above: Performed By: #### 2 747637, 77454958, 5204258 ####[facility] [address] [place] [address] Creatinine [Mass/Vol] 2.6 mg/dL High 0.5-1.3 [facility] Comment on above: Performed By: #### 2 308647, 97218640, 9294189 ####[facility] [address] [place] [address] Glucose [Mass/Vol] 575 mg/dL Abnormal 55-199 [facility] Comment on above: Result Comment: Crit ical Result [id number] Called to and read back by: MARLEN SHEETS at: 09/12/2023 18:59:19 by:PRADEEP Stevensal Result Verified by Previous Result Performed By: #### 2 425550, 50300099, 5405397 ####[facility] [address] [place] [address] Potassium [Moles/Vol] 6.5 mmol/L Abnormal 3.5-5.3 [facility] Comment on above: Result Comment: Crit ical Result S_K:6.5 Called to and read back by: MARLEN SHEETS at: 09/12/2023 18:59:19 by:PRADEEP AIKENritical Result Verified by Previous Result Performed By: #### 2 231191, 38870839, 1405827 ####[facility] [address] [place] [address] Sodium [Moles/Vol] 133 mmol/L Low 135-145 [facility] Comment on above: Performed By: #### 2 672453, 77000583, 9653570 ####[facility] [address] [place] [address] Urea nitrogen [Mass/Vol] 57 mg/dL High 5-21 [facility] Comment on above: Performed By: #### 2 182830, 72328651, 2338311 ####[facility] [address] [place] [address] BNPon 09-12-2023 Natriuretic peptide B (Bld) [Mass/Vol] 245 pg/mL High 5-80 [facility] Comment on above: Performed By: #### 1 2137782, 605364016, 6092064, [id number], 18818510, 5562787, 0547928, 56401113, 1110419, 3178924 ####[facility] [address] [place] [address] BOHBon 09-12-2023 Beta HB Qnt 0.17 mmol/L Normal 0.02-0.27 [facility] Comment on above: Performed By: #### 1 8967072, 110932363, 5207940, 8217564106, 72901935, 8769917, 1849472, 07606061, 3601307, 6647400 ####[address] [place] [address] Blood Gas Art, with Lytes, G hugh, [place] 09-12-2023 a/A Ratio Art 26.80 % Normal >=0.80 [facility] Comment on above: Performed By: #### 4 49215925 ####[facility] [address] [place] [address] AaDO2 Art 281.8 mmHg High 5.0-15.0 [facility] Comment on above: Performed By: #### 4 45333348 ####[facility] [address] [place] [address] Allens Test Positive Normal [facility] Comment on above: Performed By: #### 4 29687272 ####[facility] [address] [place] [address] Base Excess Arterial 2.9 mmol/L Normal >=2.8 [facility] Comment on above: Performed By: #### 4 02016531 ####[address] [place] [address] BiPAP 09/04 Invalid Interpretation Code [facility] Comment on above: Performed By: #### 4 80503476 ####[facility] [address] [place] [address] cCa2+ Art 4.64 mg/dL Normal 4.40-5.30 [facility] Comment on above: Performed By: #### 4 91571721 ####[facility] [address] [place] [address] cGlu Art 531 mg/dL Abnormal 55-99 [facility] Comment on above: Result Comment: Resu lts Called To DR GARCIA By DIANA MCKEON And Read Back For Confirmation On 09/12/2023 18:44:48 EST. Performed By: #### 4 [id number] ####[address] [address] cK+ Art 5.9 mmol/L High 3.5-5.3 [facility] Comment on above: Performed By: #### 4 61168845 ####[address] [address] cLac Art .6 mmol/L Normal .5-2.2 [facility] Comment on above: Performed By: #### 4 16528838 ####[address] [place] [address] roofer applicator+ Art 138.0 mmol/L Normal 135.0-145.0 [facility] Comment on above: Performed By: #### 4 60172567 ####[facility] [address] [place] [address] Drawn by [employer] Invalid Interpretation Code [facility] Comment on above: Performed By: #### 4 40859685 ####[address] [place] [address] FCOHb Art 1.4 % Low 1.5-4.9 [facility] Comment on above: Result Comment: Refe rence rangeNonsmoker <1.5%Smoker <5.0%Heavy Smoker <9.0% Performed By: #### 4 54445344 ####[facility] [address] [place] [address] FIO2 BG 65.0 Invalid Interpretation Code [facility] Comment on above: Performed By: #### 4 48872025 ####[facility] [address] [place] [address] FMetHb Art 0.6 % Normal 0.0-1.9 [facility] Comment on above: Performed By: #### 4 06242769 ####[facility] [address] [facility] [place] [address] FO2Hb Art 95.9 % Normal 93.0-100.0 [facility] Comment on above: Performed By: #### 4 87675806 ####[address] [facility] [place] [address] HCO3 (Bld) [Moles/Vol] 27.0 mmol/L High 22.0-26.0 [facility] Comment on above: Performed By: #### 4 71540349 ####[facility] [address] [facility] [place] [address] Hemoglobin (Bld) [Mass/Vol] 14.9 g/dL Normal 12.0-17.0 [facility] Comment on above: Performed By: #### 4 97985794 ####[facility] [address] [place] [address] Oxygen saturation in Blood 97.9 % Normal 95.0-100.0 [facility] Comment on above: Performed By: #### 4 77394580 ####[facility] [address] [facility] [place] [address] P CO2 Arterial 65.5 mmHg High 35.0-45.0 [facility] Comment on above: Performed By: #### 4 01051802 ####[facility] [address] [place] [address] P O2 Arterial 103.0 mmHg High 80.0-100.0 [facility] Comment on above: Performed By: #### 4 62506335 ####[facility] [address] [place] [address] pH Arterial 7.292 Low 7.350-7.450 [facility] Comment on above: Performed By: #### 4 88467070 ####[address] [place] [address] Sample Site L Radial Normal [facility] Comment on above: Performed By: #### 4 [id number] ####[address] [address] Sample Type Arterial Draw Normal [facility] Comment on above: Performed By: #### 4 03433024 ####[address] [address] a/A Ratio Art 29.90 % Normal >=0.80 [facility] Comment on above: Performed By: #### 4 34191272 ####[address] [address] AaDO2 Art 192.2 mmHg High 5.0-15.0 [facility] Comment on above: Performed By: #### 4 50970943 ####[address] [address] Allens Test Positive Normal [facility] Comment on above: Performed By: #### 4 63087714 ####[address] [place] [address] Base Excess Arterial -0.1 mmol/L Low >=2.8 [facility] Comment on above: Performed By: #### 4 56510230 ####[facility] [address] [place] [address] BiPAP 05/04 Invalid Interpretation Code [facility] Comment on above: Performed By: #### 4 64682685 ####[facility] [address] [facility] [place] [address] cCa2+ Art 4.76 mg/dL Normal 4.40-5.30 [facility] Comment on above: Performed By: #### 4 64880442 ####[facility] [address] [place] [address] cCl- Art 100.0 mmol/L Low 101.0-111.0 [facility] Comment on above: Performed By: #### 4 11819497 ####[facility] [address] [place] [address] cGlu Art 555 mg/dL Abnormal 55-99 [facility] Comment on above: Result Comment: Resu lts Called To IRVING PECL By WILLEM WILKES _ And Read Back For Confirmation On _.09/12/2023 16:45:25 EST Performed By: #### 4 51134369 ####[address] [address] cK+ Art 6.3 mmol/L Abnormal 3.5-5.3 [facility] Comment on above: Result Comment: Resu lts Called To IRVING PECL By WILLEM WILKES _ And Read Back For Confirmation On _.09/12/2023 16:45:25 EST Performed By: #### 4 88120721 ####[facility] [address] [place] [address] cLac Art .7 mmol/L Normal .5-2.2 [facility] Comment on above: Performed By: #### 4 46623339 ####[address] [place] [address] roofer applicator+ Art 135.0 mmol/L Normal 135.0-145.0 [facility] Comment on above: Performed By: #### 4 39622751 ####[facility] [address] [place] [address] Drawn by WILLEM WILKES Invalid Interpretation Code [facility] Comment on above: Performed By: #### 4 65773222 ####[facility] [address] [facility] [place] [address] FCOHb Art 2.1 % Normal 1.5-4.9 [facility] Comment on above: Result Comment: Refe rence rangeNonsmoker <1.5%Smoker <5.0%Heavy Smoker <9.0% Performed By: #### 4 51662537 ####[facility] [address] [place] [address] FIO2 BG 50 Invalid Interpretation Code [facility] Comment on above: Performed By: #### 4 17737144 ####[facility] [address] [place] [address] FMetHb Art 0.1 % Normal 0.0-1.9 [facility] Comment on above: Performed By: #### 4 63938209 ####[address] [place] [address] FO2Hb Art 93.3 % Normal 93.0-100.0 [facility] Comment on above: Performed By: #### 4 31450651 ####[address] [address] HCO3 (Bld) [Moles/Vol] 24.3 mmol/L Normal 22.0-26.0 [facility] Comment on above: Performed By: #### 4 02164033 ####[address] [address] Hemoglobin (Bld) [Mass/Vol] 14.8 g/dL Normal 12.0-17.0 [facility] Comment on above: Performed By: #### 4 [id number] ####[address] [place] [address] Oxygen saturation in Blood 95.4 % Normal 95.0-100.0 [facility] Comment on above: Performed By: #### 4 [id number] ####[address] [place] [address] P CO2 Arterial 69.6 mmHg High 35.0-45.0 [facility] Comment on above: Performed By: #### 4 71043199 ####[address] [facility] [place] [address] P O2 Arterial 81.9 mmHg Normal 80.0-100.0 [facility] Comment on above: Performed By: #### 4 [id number] ####[facility] [address] [facility] [place] [address] pH Arterial 7.235 Abnormal 7.350-7.450 [facility] Comment on above: Result Comment: Resu lts Called To IRVING ALEX By WILLEM WILKES _ And Read Back For Confirmation On _.09/12/2023 16:45:25 EST Performed By: #### 4 [id number] ####[address] [place] [address] Sample Site L Radial Normal [facility] Comment on above: Performed By: #### 4 [id number] ####[address] [place] [address] Sample Type Arterial Draw Normal [facility] Comment on above: Performed By: #### 4 04771259 ####[address] [place] [address] a/A Ratio Art 17.40 % Normal >=0.80 [facility] Comment on above: Performed By: #### 4 27149051 ####[facility] [address] [place] [address] AaDO2 Art 406.5 mmHg High 5.0-15.0 [facility] Comment on above: Performed By: #### 4 55868479 ####[facility] [address] [place] [address] Allens Test Positive Normal [facility] Comment on above: Performed By: #### 4 [id number] ####[facility] [address] [facility] [place] [address] Base Excess Arterial -0.1 mmol/L Low >=2.8 [facility] Comment on above: Performed By: #### 4 76568079 ####[facility] [address] [facility] [place] [address] cCa2+ Art 4.75 mg/dL Normal 4.40-5.30 [facility] Comment on above: Performed By: #### 4 [id number] ####[facility] [address] [place] [address] cCl- Art 98.0 mmol/L Low 101.0-111.0 [facility] Comment on above: Performed By: #### 4 68701941 ####[facility] [address] [place] [address] cGlu Art 579 mg/dL Abnormal 55-99 [facility] Comment on above: Result Comment: Resu lts Called To nicole myers By korina hebert And Read Back For Confirmation On 09/12/2023 14:09:29 EST. Performed By: #### 4 [id number] ####[address] [address] cK+ Art 6.0 mmol/L High 3.5-5.3 [facility] Comment on above: Performed By: #### 4 [id number] ####[address] [address] cLac Art .9 mmol/L Normal .5-2.2 [facility] Comment on above: Performed By: #### 4 [id number] ####[facility] [address] [place] [address] roofer applicator+ Art 134.0 mmol/L Low 135.0-145.0 [facility] Comment on above: Performed By: #### 4 [id number] ####[facility] [address] [place] [address] Device Non Rebreather Mask Normal [facility] Comment on above: Performed By: #### 4 [id number] ####[facility] [address] [place] [address] Drawn by korina clement Invalid Interpretation Code [facility] Comment on above: Performed By: #### 4 [id number] ####[facility] [address] [facility] [place] [address] FCOHb Art 2.2 % Normal 1.5-4.9 [facility] Comment on above: Result Comment: Refe rence rangeNonsmoker <1.5%Smoker <5.0%Heavy Smoker <9.0% Performed By: #### 4 [id number] ####[facility] [address] [place] [address] FIO2 BG 80 Invalid Interpretation Code [facility] Comment on above: Performed By: #### 4 [id number] ####[address] [place] [address] FO2Hb Art 94.1 % Normal 93.0-100.0 [facility] Comment on above: Performed By: #### 4 [id number] ####[address] [place] [address] HCO3 (Bld) [Moles/Vol] 24.3 mmol/L Normal 22.0-26.0 [facility] Comment on above: Performed By: #### 4 [id number] ####[address] [address] Hemoglobin (Bld) [Mass/Vol] 14.7 g/dL Normal 12.0-17.0 [facility] Comment on above: Performed By: #### 4 [id number] ####[address] [address] Oxygen saturation in Blood 96.2 % Normal 95.0-100.0 [facility] Comment on above: Performed By: #### 4 [id number] ####[address] [place] [address] P CO2 Arterial 65.1 mmHg High 35.0-45.0 [facility] Comment on above: Performed By: #### 4 [id number] ####[address] [place] [address] P O2 Arterial 85.6 mmHg Normal 80.0-100.0 [facility] Comment on above: Performed By: #### 4 [id number] ####[address] [place] [address] pH Arterial 7.254 Low 7.350-7.450 [facility] Comment on above: Performed By: #### 4 [id number] ####[address] [address] Sample Site L Radial Normal [facility] Comment on above: Performed By: #### 4 [id number] ####[address] [address] Sample Type Arterial Draw Normal [facility] Comment on above: Performed By: #### 4 [id number] ####[id number] CBC w/ Auto Diffon 4 Basophil Absolute 0.1 E9/L Normal 0.0-0.2 [facility] Comment on above: Performed By: #### 1 6736431, 965009666, 1502809, 3439162482, 64957634, 0239132, 6219824, 44854594, 2276404, 6663068 ####[address] [address] Basophils/100 WBC (Bld) 1.0 % Normal 0.0-2.0 [facility] Comment on above: Performed By: #### 1 9468835, 474238168, 9710527, 3844582749, 60920416, 6396600, 6301070, 39742379, 0525080, 4867101 ####[address] [address] Eos Absolute 0.2 E9/L Normal 0.0-0.5 [facility] Comment on above: Performed By: #### 1 4202330, 012767563, 9282944, 1892481205, 57521275, 1134470, 9035419, 85998867, 7234753, 7281968 ####[address] [place] [address] Eosinophils/100 WBC (Bld) 2.9 % Normal 0.0-8.0 [facility] Comment on above: Performed By: #### 1 4806429, 460467195, 9149197, 6761721425, 47991677, 4312746, 7882210, 25798197, 4871902, 7256202 ####[address] [place] [address] Erythrocyte distribution width (RBC) [Ratio] 18.2 % High 10.9-14.2 [facility] Comment on above: Performed By: #### 1 9083305, 959678837, 9215803, 3804779747, 04056640, 0233712, 5239658, 82863120, 3931196, 6865683 ####[address] [place] [address] Hematocrit (Bld) [Volume fraction] 46.0 % Normal 37.7-49.0 [facility] Comment on above: Performed By: #### 1 7266636, 059463556, 4518187, 2900635658, 10188664, 7746968, 5717312, 32750711, 8338401, 5799871 ####[address] [address] Hemoglobin (Bld) [Mass/Vol] 14.2 g/dL Normal 13.5-17.5 [facility] Comment on above: Performed By: #### 1 1874547, 824818217, 3540872, 8885550273, 27256937, 4214460, 2822798, 07283949, 4546729, 6156159 ####[address] [address] Lymph Absolute 1.0 E9/L Normal 1.0-4.0 [facility] Comment on above: Performed By: #### 1 3449650, 521489099, 2498231, 3384333600, 06133859, 2624613, 7227690, 05119974, 8696433, 8527573 ####[address] [place] [address] Lymphocytes/100 WBC (Bld) 14.0 % Normal 14.0-50.0 [facility] Comment on above: Performed By: #### 1 3803787, 811357474, 6537135, 6844721451, 51071215, 1035989, 0172503, 31134635, 4589194, 1348039 ####[facility] [address] [place] [address] MCH (RBC) [Entitic mass] 27.7 pg Normal 27.0-34.0 [facility] Comment on above: Performed By: #### 1 8902766, 340696767, 7367879, 5891028107, 95127045, 7448607, 2632626, 31519035, 5269166, 5996982 ####[address] [place] [address] MCHC (RBC) [Mass/Vol] 30.8 g/dL Low 31.4-36.0 [facility] Comment on above: Performed By: #### 1 5396122, 745582571, 1983518, 4468808663, 92950804, 8069262, 5247958, 64692445, 8020273, 6441473 ####[address] [address] MCV (RBC) [Entitic vol] 90.0 fL Normal 80.0-100.0 [facility] Comment on above: Performed By: #### 1 7151740, 150952809, 0713241, 0649167191, 80928410, 4025902, 3947341, 89217841, 5609466, 0971502 ####[facility] [address] [place] [address] Traill Absolute 0.8 E9/L Normal 0.2-1.0 [facility] Comment on above: Performed By: #### 1 7440675, 926219042, 9740586, 1826065532, 75628816, 9138792, 3871117, 84844187, 1243762, 0862820 ####[address] [place] [address] Monocytes/100 WBC (Bld) 11.3 % Normal 4.0-14.0 [facility] Comment on above: Performed By: #### 1 4542500, 719399602, 0660968, 4687531878, 07786609, 0836213, 3493026, 74246366, 5304931, 4364629 ####[facility] [address] [place] [address] Neutro Absolute 4.8 E9/L Normal 2.0-7.5 [facility] Comment on above: Performed By: #### 1 3104986, 669926342, 7043939, 6851373277, 64548839, 6522891, 9790300, 76635061, 2454585, 4671458 ####[facility] [address] [place] [address] Neutro Auto 70.8 % Normal 36.0-75.0 [facility] Comment on above: Performed By: #### 1 0167539, 252836989, 5175179, 8682970866, 46346135, 3401866, 9227372, 04641877, 1827306, 9735727 ####[address] [place] [address] Platelet 206.0 E9/L Normal 150.0-500.0 [facility] Comment on above: Performed By: #### 1 6319884, 387281432, 8595735, 2525057202, 58114385, 3658988, 6989618, 80100482, 2950926, 8062669 ####[facility] [address] [place] [address] Platelet mean volume (Bld) [Entitic vol] 7.3 fL Normal 6.4-10.8 [facility] Comment on above: Performed By: #### 1 8890290, 563989191, 6125623, 2377777135, 09256039, 0104179, 7264301, 47291458, 0627710, 3563908 ####[address] [place] [address] RBC 5.1 E12/L Normal 4.3-5.9 [facility] Comment on above: Performed By: #### 1 9297665, 404328802, 5273345, 8385751121, 21361660, 2687582, 6650691, 26461201, 7567188, 9136315 ####[facility] [address] [place] [address] WBC 6.8 E9/L Normal 4.0-11.0 [facility] Comment on above: Performed By: #### 1 2695133, 700320732, 7000257, 1692622188, 25544777, 3340891, 1483647, 08074038, 9736429, 3546954 ####[address] [place] [address] CMPon 09-12-2023 Albumin [Mass/Vol] 3.3 g/dL Normal 3.3-5.0 [facility] Comment on above: Performed By: #### 1 0893082, 646953913, 2296771, 2810317834, 94743810, 4566082, 8320886, 28414015, 0306980, 9741881 ####[address] [place] [address] Albumin/Globulin [Mass ratio] 1.1 {ratio} Normal 1.1-2.2 [facility] Comment on above: Performed By: #### 1 8470147, 939574567, 5615451, 4267767571, 31061850, 0485015, 6572942, 10080784, 6462593, 3931456 ####[facility] [address] [place] [address] Alk Phos 94 Int._Unit/L Normal 21-98 [facility] Comment on above: Performed By: #### 1 4584123, 619889933, 1936003, 1143955785, 02984983, 9981172, 2266530, 02284904, 5389876, 2530703 ####[facility] [address] [place] [address] ALT 14 Int._Unit/L Normal 6-46 [facility] Comment on above: Performed By: #### 1 2083703, 509921050, 8599462, 0291283357, 54746910, 0524557, 6264845, 95299114, 4980728, 3540876 ####[facility] [address] [place] [address] Anion gap [Moles/Vol] 10 mmol/L Normal 6-16 [facility] Comment on above: Performed By: #### 1 8440466, 014685961, 9539620, 4805574941, 62302227, 6497044, 3038138, 20475741, 4450175, 4963086 ####[facility] [address] [place] [address] AST 12 Int._Unit/L Normal 5-43 [facility] Comment on above: Performed By: #### 1 5454453, 843964416, 7746801, 6921570728, 95750650, 1819359, 4507282, 95211164, 6645796, 7632656 ####[facility] [address] [place] [address] Bili Total 0.6 mg/dL Normal 0.0-1.1 [facility] Comment on above: Performed By: #### 1 3857279, 670764976, 3732336, 6390919440, 21850953, 3513267, 9193533, 56882570, 1861435, 0076380 ####[facility] [address] [place] [address] BUN/Creat Ratio 21 No Units High 10-20 [facility] Comment on above: Performed By: #### 1 0266051, 876682608, 1100527, 8169160447, 33898936, 3971478, 5998738, 89285457, 2965094, 6449930 ####[facility] [address] [place] [address] Calcium [Mass/Vol] 8.3 mg/dL Low 8.9-11.1 [facility] Comment on above: Performed By: #### 1 0741519, 116847877, 1969032, 6622609814, 08333193, 9618812, 0141082, 11139376, 2020220, 8101659 ####[facility] [address] [place] [address] Chloride [Moles/Vol] 97 mmol/L Low 101-111 [facility] Comment on above: Performed By: #### 1 0036210, 426757087, 8849549, 7395333568, 41958055, 4120458, 5735293, 27966435, 9019520, 1781383 ####[facility] [address] [place] [address] CO2 [Moles/Vol] 29 mmol/L Normal 21-31 [facility] Comment on above: Performed By: #### 1 4622005, 948509504, 3838016, 1523548191, 87580983, 3678519, 4772079, 53441354, 9051873, 4291588 ####[facility] [address] [place] [address] Creatinine [Mass/Vol] 2.8 mg/dL High 0.5-1.3 [facility] Comment on above: Performed By: #### 1 5536897, 799373975, 8589942, 8373422717, 60006772, 0760823, 2140400, 08679434, 5761071, 0980080 ####[facility] [address] [place] [address] Globulin (S) [Mass/Vol] 3.1 g/dL Normal 1.4-4.0 [facility] Comment on above: Performed By: #### 1 2797430, 723519650, 2939696, 8899233360, 86896228, 8435029, 7822887, 86228078, 2529866, 3973964 ####[facility] [address] [place] [address] Glucose [Mass/Vol] 560 mg/dL Abnormal 55-199 [facility] Comment on above: Result Comment: Crit ical Result Verified by Repeat AnalysisCritical Result S_GLU:560 Called to and read back by: ULICES BACA at: 09/12/2023 14:56:08 by:DOMINICK Performed By: #### 1 2083334, 952599772, 1508721, 4763282660, 53250225, 0887593, 4107145, 83711887, 9805233, 3083569 ####[facility] [address] [place] [address] Potassium [Moles/Vol] 6.3 mmol/L Abnormal 3.5-5.3 [facility] Comment on above: Result Comment: Crit ical Result Verified by Repeat AnalysisCritical Result S_K:6.3 Called to and read back by: ULICES BACA at: 09/12/2023 14:56:08 by:DOMINICK Performed By: #### 1 7790528, 087138526, 8069642, 4691073973, 55464642, 7217891, 1695743, 31116266, 9253022, 0857571 ####[facility] [address] [place] [address] Protein [Mass/Vol] 6.4 g/dL Normal 6.0-7.8 [facility] Comment on above: Performed By: #### 1 8134395, 830259050, 2735227, 8349093110, 30681014, 2820954, 6573304, 68586925, 4499389, 8125013 ####[facility] [address] [place] [address] Sodium [Moles/Vol] 130 mmol/L Low 135-145 [facility] Comment on above: Performed By: #### 1 2220258, 060981702, 0984025, 6387757072, 02966243, 0364960, 5050884, 60016549, 1883571, 9802987 ####[facility] [address] [place] [address] Urea nitrogen [Mass/Vol] 59 mg/dL High 5-21 [facility] Comment on above: Performed By: #### 1 1946267, 135503349, 4640106, 1132489099, 19583002, 9124107, 6727444, 07079631, 4537466, 1716011 ####[facility] [address] [place] [address] Capillary Glucose POCon 08-22 Glucose [Mass/Vol] 298 mg/dL High 55-99 [facility] Comment on above: Performed By: #### 2 84186083 ####[facility] [address] [place] [address] Glucose [Mass/Vol] 336 mg/dL High 55-99 [facility] Comment on above: Result Comment: Thelma BAE Performed By: #### 2 17920576 ####[facility] [address] [place] [address] Glucose [Mass/Vol] 431 mg/dL High 55-99 [facility] Comment on above: Result Comment: Thelma BAE Performed By: #### 2 27726673 ####[facility] [address] [place] [address] Glucose [Mass/Vol] 468 mg/dL Abnormal 55-99 [facility] Comment on above: Performed By: #### 2 85564448 ####[facility] [address] [place] [address] Glucose Cap >500 Abnormal 55-99 [facility] Comment on above: Result Comment: Repe at Test Performed By: #### 2 64386220 ####[facility] [address] [facility] [place] [address] Glucose Cap >500 Abnormal 55-99 [facility] Comment on above: Result Comment: Pricila elbert Meter Performed By: #### 2 05186350 ####[facility] [address] [facility] [place] [address] Consent for Treatmenton 08-22 Consent for Treatment [id number]# 1.00TIFF Normal [facility] Consultation Noteon 09-12-19 Consultation Note Normal [facility] Comment on above: Result Comment: Elec tronically Signed By: Shaquille Alex Jr., PA-C\.br\Date and Time Signed: 09/12/23 17:54 EST ED Clinical Summaryon 2023 ED Clinical Summary Normal [facility]h [facility] ED Note-Physicianon 09-12-19 ED Note-Physician Normal [facility] Comment on above: Result Comment: Elec tronically Signed By: Nicole Myers DO\.br\Date and Time Signed: 09/12/23 16:07 EST ED Patient Education Noteon 09-12-2023 ED Patient Education Note Normal [facility] ED Patient Summaryon 024 ED Patient Summary Normal [facility] Glucoseon 09-12-2023 Glucose [Mass/Vol] 533 mg/dL Abnormal 55-199 [facility] Comment on above: Result Comment: Crit ical Result Verified by Previous ResultCritical Result S_GLU:533 Called to and read back by: YI FERRER at: 09/12/2023 19:24:47 by:PRADEEP KERR Performed By: #### 2 705796 ####[facility] [address] [place] [address] Influenza A&B Agon Influenzae A Ag Negative Normal Negative [facility] Comment on above: Performed By: #### 2 086661785, 96158929 ####[facility] [address] [place] [address] Influenzae B Ag Negative Normal Negative [facility] Comment on above: Result Comment: Test sensitivity and specificity vary for age group, specimen type, antigen types, and prevalence of disease. Test results must be evaluated in conjunction with other clinical data available to the physician. Individuals who received nasally administered Influenza A vaccine may have positive test results up to 3 days after vaccination. Performed By: #### 2 [id number], 62901041 ####[facility] [address] [place] [address] Lactic Acidon 09-12-2023 Lactic Acid Lvl 1.2 mmol/L Normal 0.5-2.2 [facility] Comment on above: Performed By: #### 2 711464 ####[facility] [address] [place] [address] Lactic Acid Lvl 1.2 mmol/L Normal 0.5-2.2 [facility] Comment on above: Performed By: #### 1 0977132, 605157054, 3796275, 0861169093, 82217738, 0502071, 0792776, 97791224, 2951953, 9394343 ####[facility] [address] [place] [address] Lipase Levelon 09-12-2023 Lipase Lvl 14 unit/L Normal 13-58 [facility] Comment on above: Performed By: #### 1 1029844, 981979576, 3643043, 4942018359, 42698550, 2924052, 4153263, 94359650, 8706341, 1888903 ####[facility] [address] [place] [address] Monitor Recordon 09-12-2023 Monitor Record [id number]# 1.00TIFF Normal [facility] Monitor Record [id number]# 1.00TIFF Normal [facility] Monitor Record [id number]# 1.00TIFF Normal [facility] Monitor Record [id number]# 1.00TIFF Normal [facility] Monitor Record [id number]# 1.00TIFF Normal [facility] PT & PTTon 09-12-2023 aPTT Coag (PPP) [Time] 32.5 second(s) Normal 25.1-36.5 [facility] Comment on above: Result Comment: Para meter [...] the same coagulation reagent and instrumentation as [facility]. Currently there are no coagulation studies available worldwide for children to 14 days, and no normal ranges. Heparin therapeutic range (represented by Anti-Factor Xa activity of 0.2 - 0.4 U/mL) corresponds to PTT of 56.6 - 109.0 sec. Performed By: #### 1 1037463, 070925764, 9650777, 0045143307, 03119178, 3941027, 2538085, 93800623, 1498242, 2493401 ####[facility] [address] [place] [address] INR Coag (PPP) [Relative time] 1.1 {INR} Invalid Interpretation Code [facility] Comment on above: Result Comment: INR results are specifically intended to assess patients stabilized on long-term Anticoagulation therapy suggested INR?s ?Less Intensive Anticoagulation? 2.0 ? 3.0Conventional Range 3.0 ? 4.5 Performed By: #### 1 9919643, 742294932, 2788246, 0274137469, 94041312, 3277498, 8853411, 58649097, 1708919, 7584835 ####[facility] [address] [place] [address] PT Coag (PPP) [Time] 12.0 second(s) Normal 9.4-12.5 [facility] Comment on above: Result Comment: 15 d [...] the same coagulation reagent and instrumentation as [facility]. Currently there are no coagulation studies available worldwide for children to 14 days, and no normal ranges. Performed By: #### 1 5685852, 720156608, 0840087, 6218259981, 27866432, 6531852, 9532794, 75421190, 5721839, 8094496 ####[facility] [address] [place] [address] Pre-Arrival Noteon Pre-Arrival Note Normal [facility] Procalcitoninon 09-12-2023 Procalcitonin .10 ng/mL Normal .00-.50 [facility] Comment on above: Result Comment: <0.5 ng/mL [...] to 24 hours. Performed By: #### 1 4706539, 907229276, 6812938, 5338850055, 95260765, 4507556, 1144334, 38114304, 1407829, 2398396 ####[facility] [address] [place] [address] Rapid COVID Antigen ([facility])on 09-12-2023 Rapid COV Int NEG Ctl Pass Normal [facility] Comment on above: Performed By: #### 2 752898474, 00197954 ####[facility] [address] [place] [address] Rapid COV Int POS Ctl Pass Normal [facility] Comment on above: Performed By: #### 2 957173612, 48737943 ####[facility] [address] [place] [address] SARS-CoV+SARS-CoV-2 (COVID-19) Ag IA.rapid Ql (Resp) Not detected Normal Not Detected [facility] Comment on above: Result Comment: The [employer]? System for Rapid Detection of SARS-CoV-2 is [...] or revoked sooner. Performed By: #### 2 314242303, 98926366 ####[facility] [address] [place] [address] Triglycerideson 09-12-2023 Triglyceride [Mass/Vol] 131 mg/dL Normal <=149 [facility] Comment on above: Performed By: #### 2 004411, 12508897, 1090616 ####[facility] [address] [place] [address] Troponinon 09-12-2023 Troponin 59.30 pg/mL Abnormal 15.90-38.40 [facility] Comment on above: Result Comment: Crit ical Result Verified by Repeat AnalysisCritical Result I_TnIHS:59.3 Called to and read back by: ULICES BACA at: 09/12/2023 16:43:58 by:[email or web address] 95% CI (Confidence Interval) PPV (Positive Predictive Value) for myocardial infarction in females is 38 pg/mL, in males 51 pg/mL. The results should be used in conjunction with clinical conditions of myocardial infarction.(Access High Sensitivity Troponin I Instructions For Use, Opal Roundup, March 2018) Performed By: #### 1 9770810, 815501760, 6076905, 6503268223, 36515602, 0932912, 0180395, 50268178, 2988908, 8934048 ####[facility] [address] [place] [address] U Drug Screenon 09-12-2023 U Amph Scr Negative Invalid Interpretation Code [facility] Comment on above: Performed By: #### 2 740625 ####[facility] [address] [place] [address] U Jo-Ann Scr Negative Invalid Interpretation Code [facility] Comment on above: Performed By: #### 2 224638 ####[facility] [address] [place] [address] U Benzodia Scr Negative Invalid Interpretation Code [facility] Comment on above: Performed By: #### 2 590472 ####[facility] [address] [place] [address] U Cannab Scr Negative Invalid Interpretation Code [facility] Comment on above: Performed By: #### 2 047990 ####[facility] [address] [place] [address] U Cocaine Scr Negative Invalid Interpretation Code [facility] Comment on above: Performed By: #### 2 715594 ####[facility] [address] [place] [address] U Opiate Scr Negative Invalid Interpretation Code [facility] Comment on above: Performed By: #### 2 167248 ####[facility] [address] [place] [address] U PCP Scr Negative Invalid Interpretation Code [facility] Comment on above: Performed By: #### 2 200211 ####[facility] [address] [place] [address] UA With Cult Reflexon 2023 Bilirubin Ql (U) Negative Normal Negative [facility] Comment on above: Performed By: #### 1 6772595 ####[facility] [address] [facility] [address] Clarity (U) CLEAR Normal Clear [facility] Comment on above: Performed By: #### 1 8046651 ####[facility] [address] [facility] [place] [address] Color (U) YELLOW Normal Yellow [facility] Comment on above: Performed By: #### 1 1282991 ####[facility] [address] [place] [address] Crystals LM Ql (Urine sed) Present Normal [facility] Comment on above: Performed By: #### 1 1873002 ####[facility] [address] [facility] [place] [address] Epithelial cells.squamous LM.HPF (Urine sed) [#/Area] 0-2 Normal 0-2 [facility] Comment on above: Performed By: #### 1 6051174 ####[facility] [address] [place] [address] Glucose Test strip (U) [Mass/Vol] 3+ Abnormal Negative [facility] Comment on above: Performed By: #### 1 5626098 ####[facility] [address] [place] [address] Hemoglobin Ql (U) 1+ Abnormal Negative [facility] Comment on above: Performed By: #### 1 [id number] ####[facility] [address] [place] [address] Ketones (U) [Mass/Vol] Negative Normal Negative [facility] Comment on above: Performed By: #### 1 [id number] ####[facility] [address] [place] [address] Odanah.plasma/Lithi um.RBC (Bld) [Mass ratio] 0-3 Normal 0-3 [facility] Comment on above: Performed By: #### 1 [id number] ####[address] [address] Nitrite Ql (U) Negative Normal Negative [facility] Comment on above: Performed By: #### 1 [id number] ####[address] [address] pH (U) 5.5 [pH] Invalid Interpretation Code 5.0-9.0 [facility] Comment on above: Performed By: #### 1 [id number] ####[address] [address] Protein (U) [Mass/Vol] 1+ Abnormal Negative [facility] Comment on above: Performed By: #### 1 [id number] ####[address] [address] Specific gravity (U) [Rel density] 1.015 Invalid Interpretation Code 1.005-1.030 [facility] Comment on above: Performed By: #### 1 [id number] ####[address] [address] Type of Urine collection method Clean Catch Normal [facility] Comment on above: Performed By: #### 1 [id number] ####[address] [address] Urobilinogen Qn (U) 0.2 {Itz'U}/dL Normal 0.0-1.0 [facility] Comment on above: Performed By: #### 1 [id number] ####[address] [place] [address] WBC Auto Ql (U) Negative Normal Negative [facility] Comment on above: Performed By: #### 1 [id number] ####[address] [place] [address] WBC LM.HPF (Urine sed) [#/Area] 0-5 Normal 0-5 [facility] Comment on above: Performed By: #### 1 [id number] ####[address] [address] XR Chest Single Viewon 09-12 XR Chest Single View Normal [facility] eGFRon 09-12-2023 eGFR 28 mL/min/1.73 m2 Low >=59 [facility] Comment on above: Order Comment: Order added by Discern Expert. Performed By: #### 1 [id number], [id number] ####[id number] eGFR 27 mL/min/1.73 m2 Low >=59 [facility] Comment on above: Order Comment: Order added by Discern Expert. Performed By: #### 2 [id number], [id number] ####[address] [address] eGFR 24 mL/min/1.73 m2 Low >=59 [facility] Comment on above: Order Comment: Order added by Discern Expert. Performed By: #### 1 [id number], [id number], [id number], [id number], [id number], [id number], [id number], [id number], [id number], [id number] ####[address] [address] Consent for Procedure/Surger yon 09-11-2023 Consent for Procedure/Surgery [id number]# 1.00TIFF [facility] Correspondence - [place] Correspondence - Wound [id number]# 1.00TIFF [facility] Consent for Procedure/Surger yon 09-05-2023 Consent for Procedure/Surgery [id number]# 1.00TIFF [facility] Consent for Treatmenton 08-21 Consent for Treatment [id number]#1 .00TIFF [facility] Correspondence - [place] Correspondence - Wound [id number]# 1.00TIFF [facility] Correspondence - Wound [id number]# 1.00TIFF [facility] Insurance Correspondenceon 0 09-05-2023 Insurance Correspondence [id number]# 1.00TIFF [facility] Multi-Wound Charton 09-05-19 Multi-Wound Chart [id number]# 1.00TIFF [facility] Nursing Assessment - [place] 09-05-2023 Nursing Assessment - Wound [id number]# 1.00TIFF [facility] Physician Orderon 09-05-2023 Physician Order [id number]# 1.00TIFF [facility] Progress Note - [place] 08-21 Progress Note - Wound [id number]# 1.00TIFF [facility] No Panel InformationOrdered By: Elisa Ansari on 08-30-2023 GS Occasional White Blood Cells 3+ Gram Positive Cocci 3+ Gram Positive Rods 1+ Gram Negative Rods [facility] Basophils Auto (Bld) [#/Vol] Ordered By: Alban Arrington on 06-21-2023 Basophils (Bld) [#/Vol] 0.1 10*3/uL 0.0-0.2 [facility] Basophils/100 WBC Auto (Bld) Ordered By: Alban Arrington on 06-21-2023 Basophils/100 WBC (Bld) 0.7 % . [facility] Calcium [Mass/volume] in Ser um or PlasmaOrdered By: Alban Arrington on 06-21-2023 Calcium [Mass/Vol] 8.7 mg/dL 8.6-10.3 [facility] Carbon dioxide, total [Moles /volume] in Serum or PlasmaOrdered By: Alban Arrington on 06-21-2023 CO2 [Moles/Vol] 41.1 mmol/L 21.0-31.0 [facility] Chloride [Moles/volume] in S raymond or PlasmaOrdered By: Alban Arrington on 06-21-2023 Chloride [Moles/Vol] 100 mmol/L 98-107 [facility] Creatinine [Mass/volume] in Serum or PlasmaOrdered By: Alban Arrington on 06-21-2023 Creatinine [Mass/Vol] 1.60 mg/dL 0.70-1.30 [facility] Eosinophils Auto (Bld) [#/Vo l]Ordered By: Alban Arrington on 06-21-2023 Eosinophils (Bld) [#/Vol] 0.5 10*3/uL 0.0-0.45 [facility] Eosinophils/100 WBC Auto (Bl d)Ordered By: Alban Arrington on 06-21-2023 Eosinophils/100 WBC (Bld) 5.4 % . [facility] Erythrocyte distribution wid th Auto (RBC) [Ratio]Ordered By: Alban Arrington on 06-21-2023 Erythrocyte distribution width (RBC) [Ratio] 16.0 % 12.0-14.8 [facility] Glucose Glucometer (BldC) [M ass/Vol]Ordered By: Alban Arrington on 06-21-2023 Glucose [Mass/Vol] 200 mg/dL [facility] Comment on above: Random Glucose Refer ence Range is dependent on time and content of last meal. Glucose of more than 200 mg/dL in a nonstressed, ambulatory subject supports the diagnosis of Diabetes Mellitus. Glucose [Mass/volume] in Ser um or PlasmaOrdered By: Alban Arrington on 06-21-2023 Glucose [Mass/Vol] 60 mg/dL 70-100 [facility] Comment on above: Delta: 220 on -39ADA recommended reference rangeRandom Glucose Reference Range is dependent on time and content of last meal. Glucose of more than 200 mg/dL in a nonstressed, ambulatory subject supports the diagnosis of Diabetes Mellitus. Hematocrit Auto (Bld) [Volum e fraction]Ordered By: Alban Arrington on 06-21-2023 Hematocrit (Bld) [Volume fraction] 46.3 % 38.8-50.0 [facility] Hemoglobin [Mass/volume] in BloodOrdered By: Alban Arrington on 06-21-2023 Hemoglobin (Bld) [Mass/Vol] 14.9 g/dL 13.0-17.0 [facility] Leukocytes [#/volume] correc maria guadalupe for nucleated erythrocytes in Blood by Automated counOrdered By: Alban Arrington on 06-21-2023 WBC corrected for nucl RBC Auto (Bld) [#/Vol] 9.5 10*3/uL 4.1-10.5 [facility] Lymphocytes Auto (Bld) [#/Vo l]Ordered By: Alban Arrington on 06-21-2023 Lymphocytes (Bld) [#/Vol] 2.5 10*3/uL 1.00-4.8 [facility] Lymphocytes/100 WBC Auto (Bl d)Ordered By: Alban Arrington on 06-21-2023 Lymphocytes/100 WBC (Bld) 26.3 % . [facility] MCH Auto (RBC) [Entitic mass ]Ordered By: Alban Arrington on 06-21-2023 MCH (RBC) [Entitic mass] 28.4 pg 27.5-35.2 [facility] MCHC Auto (RBC) [Mass/Vol]Or dered By: Alban Arrington on 06-21-2023 MCHC (RBC) [Mass/Vol] 32.2 g/dL 32.5-35.6 [facility] MCV Auto (RBC) [Entitic vol] Ordered By: Alban Arrington on 06-21-2023 MCV (RBC) [Entitic vol] 88.3 fL 83.5-101 [facility] Magnesium [Mass/volume] in S raymond or PlasmaOrdered By: Alban Arrington on 06-21-2023 Magnesium [Mass/Vol] 1.8 mg/dL 1.9-2.7 [facility] Monocytes Auto (Bld) [#/Vol] Ordered By: Alban Arrington on 06-21-2023 Monocytes (Bld) [#/Vol] 0.9 10*3/uL 0.0-0.8 [facility] Monocytes/100 WBC Auto (Bld) Ordered By: Alban Arrington on 06-21-2023 Monocytes/100 WBC (Bld) 9.9 % . [facility] Neutrophils Auto (Bld) [#/Vo l]Ordered By: Alban Arrington on 06-21-2023 Neutrophils (Bld) [#/Vol] 5.5 10*3/uL 1.8-7.7 [facility] Neutrophils/100 WBC Auto (Bl d)Ordered By: Alban Arrington on 06-21-2023 Neutrophils/100 WBC (Bld) 57.7 % . [facility] No Panel InformationOrdered By: Alban Arrington on 06-21-2023 Estimated GFR (CKD-EPI) 47.816 mL/Min [facility] Creatinine Clearance (Chem 69.61 [facility] Bedside Glucose #[address]/rn [facility] Bedside Glucose Comment See comment [facility] Comment on above: Glu2: Will Repeat Te st Nucleated erythrocytes [Pres ence] in Blood by Automated countOrdered By: Alban Arrington on 06-21-2023 Nucleated RBC Auto Ql (Bld) 0.1 /100{WBC} 0-0.5 [facility] Platelet mean volume Auto (B ld) [Entitic vol]Ordered By: Alban Arrington on 06-21-2023 Platelet mean volume (Bld) [Entitic vol] 7.1 fL 6.6-10.1 [facility] Platelets Auto (Bld) [#/Vol] Ordered By: Alban Arrington on 06-21-2023 Platelets (Bld) [#/Vol] 241 10*3/uL 150-450 [facility] Potassium [Moles/volume] in Serum or PlasmaOrdered By: Alban Arrington on 06-21-2023 Potassium [Moles/Vol] 4.4 mmol/L 3.5-5.1 [facility] RBC Auto (Bld) [#/Vol]Ordere d By: Alban Arrington on 06-21-2023 RBC (Bld) [#/Vol] 5.24 10*6/uL 3.90-5.60 [facility] Serum or plasma anion gap de terminationOrdered By: Alban Arrington on 06-21-2023 Anion gap [Moles/Vol] 6.3 mmol/L 6.0-15.0 [facility] Sodium [Moles/volume] in Ser um or PlasmaOrdered By: Alban Arrington on 06-21-2023 Sodium [Moles/Vol] 143 mmol/L 136-145 [facility] Urea nitrogen [Mass/volume] in Serum or PlasmaOrdered By: Alban Arrington on 06-21-2023 Urea nitrogen [Mass/Vol] 38 mg/dL 7-25 [facility] WBC Auto (Bld) [#/Vol]Ordere d By: Alban Arrington on 06-21-2023 WBC (Bld) [#/Vol] 9.5 10*3/uL 4.1-10.5 [facility] Laboratory - Chemistry and C hemistry - challengeOrdered By: Alban Arrington on 06-20-2023 CO2 [Moles/Vol] 38.0 mmol/L 23.0-27.0 [facility] HCO3 (Bld) [Moles/Vol] 36.0 mmol/L 23.0-29.0 [facility] No Panel InformationOrdered By: Alban Arrington on 06-20-2023 Arterial Blood Base Excess 8.1 mmol/L -3.0-3.0 [facility] Arterial Blood Oxygen Content 9.0 mmol/L 6.6-9.7 [facility] Arterial Blood Oxygen Saturation 94.1 % 95.0-100.0 [facility] Arterial Blood Partial Pressure CO2 63.6 mm[Hg] 35.0-45.0 [facility] Arterial Blood Partial Pressure O2 69.0 mm[Hg] 80.0-100.0 [facility] Arterial Blood pH 7.37 7.35-7.45 [facility] Blood Gas Critical Value See comment [facility] Comment on above: Critical Value dickerson d on: 06/20/2023 at 17:52 Blood Gas Liter Flow 5l L/min [facility] Blood Gas Sample Site Right radial [facility] FiO2 Na % [facility] Monocyte distribution width [Entitic volume] in Blood by AutomatedOrdered By: Alban Arrington on 06-19-2023 Monocyte distribution width Auto (Bld) [Entitic vol] 15.91 % 0.00-20.00 [facility] Automated erythrocytes count in urine sediment (number/area)Ordered By: Art Kirby on 06-18-2023 RBC Auto (Urine sed) [#/Area] 0-1 [HPF] 0-4 [facility] Automated leukocytes count i n urine sediment (number/area)Ordered By: Art Kirby on 06-18-2023 WBC Auto (Urine sed) [#/Area] None seen [HPF] 0-4 [facility] Basophils Auto (Bld) [#/Vol] Ordered By: Art Kirby on 06-18-2023 Basophils (Bld) [#/Vol] 0.0 10*3/uL 0.0-0.2 [facility] Basophils/100 WBC Auto (Bld) Ordered By: Art Kirby on 06-18-2023 Basophils/100 WBC (Bld) 0.7 % . [facility] Bilirubin Auto test strip Ql (U)Ordered By: Art Kirby on 06-18-2023 Bilirubin Ql (U) Negative Negative [facility] COVID CepheidOrdered By: Tanvir Kirby on 06-18-2023 SARS-CoV-2 (COVID-19) Ab IA Ql Negative Negative [facility] Comment on above: This is a duplicate [employer]epGit[employer] Xpert Xpress CoV-2/Flu/RSV Plus RNA by RT-PCR result to be used for statistical tracking purpose only. SARS-CoV-2 (COVID-19) RNA ERIBERTO+probe Ql (Unsp spec) [facility] Calcium [Mass/volume] in Ser um or PlasmaOrdered By: Art Kirby on 06-18-2023 Calcium [Mass/Vol] 8.8 mg/dL 8.6-10.3 [facility] Carbon dioxide, total [Moles /volume] in Serum or PlasmaOrdered By: Art Kirby on 06-18-2023 CO2 [Moles/Vol] 33.2 mmol/L 21.0-31.0 [facility] Chloride [Moles/volume] in S raymond or PlasmaOrdered By: Art Kirby on 06-18-2023 Chloride [Moles/Vol] 102 mmol/L 98-107 [facility] Creatinine [Mass/volume] in Serum or PlasmaOrdered By: Art Kirby on 06-18-2023 Creatinine [Mass/Vol] 1.51 mg/dL 0.70-1.30 [facility] Eosinophils Auto (Bld) [#/Vo l]Ordered By: Art Kirby on 06-18-2023 Eosinophils (Bld) [#/Vol] 0.2 10*3/uL 0.0-0.45 [facility] Eosinophils/100 WBC Auto (Bl d)Ordered By: Art Kirby on 06-18-2023 Eosinophils/100 WBC (Bld) 3.1 % . [facility] Erythrocyte distribution wid th Auto (RBC) [Ratio]Ordered By: Art Kirby on 06-18-2023 Erythrocyte distribution width (RBC) [Ratio] 15.4 % 12.0-14.8 [facility] Glucose [Mass/volume] in Ser um or PlasmaOrdered By: Art Kirby on 06-18-2023 Glucose [Mass/Vol] 294 mg/dL 70-100 [facility] Comment on above: ADA recommended refe rence rangeRandom Glucose Reference Range is dependent on time and content of last meal. Glucose of more than 200 mg/dL in a nonstressed, ambulatory subject supports the diagnosis of Diabetes Mellitus. Hematocrit Auto (Bld) [Volum e fraction]Ordered By: Art Kirby on 06-18-2023 Hematocrit (Bld) [Volume fraction] 46.7 % 38.8-50.0 [facility] Hemoglobin [Mass/volume] in BloodOrdered By: Art Kirby on 06-18-2023 Hemoglobin (Bld) [Mass/Vol] 14.9 g/dL 13.0-17.0 [facility] Ketones Auto test strip (U) [Mass/Vol]Ordered By: Art Kirby on 06-18-2023 Ketones (U) [Mass/Vol] Negative Negative [facility] Laboratory - UrinalysisOrder ed By: Art Kirby on 06-18-2023 Hyaline casts LM Ql (Urine sed) None seen [LPF] 0-8 [facility] Leukocytes [#/volume] correc maria guadalupe for nucleated erythrocytes in Blood by Automated counOrdered By: Art Kirby on 06-18-2023 WBC corrected for nucl RBC Auto (Bld) [#/Vol] 6.7 10*3/uL 4.1-10.5 [facility] Lymphocytes Auto (Bld) [#/Vo l]Ordered By: Art Kirby on 06-18-2023 Lymphocytes (Bld) [#/Vol] 1.4 10*3/uL 1.00-4.8 [facility] Lymphocytes/100 WBC Auto (Bl d)Ordered By: Art Kirby on 06-18-2023 Lymphocytes/100 WBC (Bld) 20.2 % . [facility] MCH Auto (RBC) [Entitic mass ]Ordered By: Art Kirby on 06-18-2023 MCH (RBC) [Entitic mass] 28.2 pg 27.5-35.2 [facility] MCHC Auto (RBC) [Mass/Vol]Or dered By: Art Kirby on 06-18-2023 MCHC (RBC) [Mass/Vol] 32.0 g/dL 32.5-35.6 [facility] MCV Auto (RBC) [Entitic vol] Ordered By: Art Kirby on 06-18-2023 MCV (RBC) [Entitic vol] 88.2 fL 83.5-101 [facility] Monocyte distribution width [Entitic volume] in Blood by AutomatedOrdered By: Art Kirby on 06-18-2023 Monocyte distribution width Auto (Bld) [Entitic vol] 15.12 % 0.00-20.00 [facility] Monocytes Auto (Bld) [#/Vol] Ordered By: Art Kirby on 06-18-2023 Monocytes (Bld) [#/Vol] 0.6 10*3/uL 0.0-0.8 [facility] Monocytes/100 WBC Auto (Bld) Ordered By: Art Kirby on 06-18-2023 Monocytes/100 WBC (Bld) 9.2 % . [facility] Natriuretic peptide B [Mass/ Vol]Ordered By: Art Kirby on 06-18-2023 Natriuretic peptide B (Bld) [Mass/Vol] 98.0 pg/mL 5-100 [facility] Neutrophils Auto (Bld) [#/Vo l]Ordered By: Art Kirby on 06-18-2023 Neutrophils (Bld) [#/Vol] 4.5 10*3/uL 1.8-7.7 [facility] Neutrophils/100 WBC Auto (Bl d)Ordered By: Art Kirby on 06-18-2023 Neutrophils/100 WBC (Bld) 66.8 % . [facility] No Panel InformationOrdered By: Art Kirby on 06-18-2023 Estimated GFR (CKD-EPI) 51.256 mL/Min [facility] Creatinine Clearance (Chem 71.87 [facility] Nucleated erythrocytes [Pres ence] in Blood by Automated countOrdered By: Art Kirby on 06-18-2023 Nucleated RBC Auto Ql (Bld) 0.1 /100{WBC} 0-0.5 [facility] Platelet mean volume Auto (B ld) [Entitic vol]Ordered By: Art Kirby on 06-18-2023 Platelet mean volume (Bld) [Entitic vol] 7.2 fL 6.6-10.1 [facility] Platelets Auto (Bld) [#/Vol] Ordered By: Art Kirby on 06-18-2023 Platelets (Bld) [#/Vol] 214 10*3/uL 150-450 [facility] Potassium [Moles/volume] in Serum or PlasmaOrdered By: Art Kirby on 06-18-2023 Potassium [Moles/Vol] 5.2 mmol/L 3.5-5.1 [facility] Protein Auto test strip (U) [Mass/Vol]Ordered By: Art Kirby on 06-18-2023 Protein (U) [Mass/Vol] 100 mg/dL Negative [facility] RBC Auto (Bld) [#/Vol]Ordere d By: Art Kirby on 06-18-2023 RBC (Bld) [#/Vol] 5.30 10*6/uL 3.90-5.60 [facility] Serum or plasma anion gap de terminationOrdered By: Art Kirby on 06-18-2023 Anion gap [Moles/Vol] 8.0 mmol/L 6.0-15.0 [facility] Sodium [Moles/volume] in Ser um or PlasmaOrdered By: Art Kirby on 06-18-2023 Sodium [Moles/Vol] 138 mmol/L 136-145 [facility] Squamous epithelial cells de tection in urine sediment by light microscopyOrdered By: Art Kirby on 06-18-2023 Epithelial cells.squamous LM Ql (Urine sed) 0-1 [HPF] 0-2 [facility] Troponin I.cardiac [Mass/vol ume] in Serum or Plasma by Detection limit <= 0.01 ng/Ordered By: Art Kirby on 06-18-2023 Troponin I.cardiac DL <= 0.01 ng/mL [Mass/Vol] 8.0 pg/mL 0.0-20.0 [facility] Urea nitrogen [Mass/volume] in Serum or PlasmaOrdered By: Art Kirby on 06-18-2023 Urea nitrogen [Mass/Vol] 47 mg/dL 7-25 [facility] Urine appearanceOrdered By: Art Kirby on 06-18-2023 Appearance (U) Clear Clear [facility] Urine bacteria detection by automated methodOrdered By: Art Kirby on 06-18-2023 Bacteria Auto Ql (U) None seen None Seen [facility] Urine colorOrdered By: Carmen Kirby on 06-18-2023 Color (U) Yellow Yellow [facility] Urine glucose measurement by automated test strip (mass/volume)Ordered By: Art Kirby on 06-18-2023 Glucose Auto test strip (U) [Mass/Vol] >=1000 mg/dL Normal [facility] Urine hemoglobin detection b y automated test stripOrdered By: Art Kirby on 06-18-2023 Hemoglobin Auto test strip Ql (U) Negative Negative [facility] Urine leukocyte esterase det ection by automated test stripOrdered By: Art Kirby on 06-18-2023 Leukocyte esterase Auto test strip Ql (U) Negative Negative [facility] Urine nitrite detection by a utomated test stripOrdered By: Art Kirby on 06-18-2023 Nitrite Auto test strip Ql (U) Negative Negative [facility] Urobilinogen Auto test strip (U) [Mass/Vol]Ordered By: Art Kirby on 06-18-2023 Urobilinogen (U) [Mass/Vol] Normal mg/dL Normal [facility] WBC Auto (Bld) [#/Vol]Ordere d By: Art Kirby on 06-18-2023 WBC (Bld) [#/Vol] 6.7 10*3/uL 4.1-10.5 [facility] pH Auto test strip (U)Ordere d By: Art Kirby on 06-18-2023 pH (U) 1.020 [pH] 1.001-1.030 [facility] pH (U) 5.5 [pH] 5.0-9.0 [facility] CHEMISTRYOrdered By: Lab ROP User on 06-15-2023 Glucose [Mass/Vol] 332 mg/dL High 55 - 99 mg/dL [facility] C POC Subsection Comment on above: Result Comment: Thelma maxwell RN/ POC Username CAROLINE OSORIO Invalid Interpretation Code [facility] POC Subsection Sodium [Moles/Vol] 075669360152 mmol/L Invalid Interpretation Code [facility] POC Subsection Sodium [Moles/Vol] 179859430 mmol/L Invalid Interpretation Code [facility] POC Subsection Glucose [Mass/Vol] 341 mg/dL High 55 - 99 mg/dL [facility] C POC Subsection Comment on above: Result Comment: Thelma maxwell RN/ POC Username ORTIZ WILD Invalid Interpretation Code [facility] POC Subsection Sodium [Moles/Vol] 979608036611 mmol/L Invalid Interpretation Code [facility] POC Subsection Sodium [Moles/Vol] 590167545 mmol/L Invalid Interpretation Code [facility] POC Subsection Glucose [Mass/Vol] 172 mg/dL High 55 - 99 mg/dL [facility] C POC Subsection Comment on above: Result Comment: Thelma maxwell RN/ POC Username ORTIZ WILD Invalid Interpretation Code [facility] POC Subsection Sodium [Moles/Vol] 255471207540 mmol/L Invalid Interpretation Code [facility] POC Subsection Sodium [Moles/Vol] 221139938 mmol/L Invalid Interpretation Code [facility] POC Subsection CHEMISTRYOrdered By: SYSTEM SYSTEM on 06-15-2023 Anion gap [Moles/Vol] 11 mmol/L Normal 6 - 16 mEq/L [facility] Remisol Calcium [Mass/Vol] 8.5 mg/dL Low 8.9 - 11.1 mg/dL [facility] Remisol Chloride [Moles/Vol] 105 mmol/L Normal 101 - 111 mmol/ L [facility] Remisol CO2 [Moles/Vol] 28 mmol/L Normal 21 - 31 mmol/L [facility] Remisol Creatinine [Mass/Vol] 1.6 mg/dL High 0.5 - 1.3 mg/dL [facility] Remisol GFR/1.73 sq M.predicted among non-blacks MDRD (S/P/Bld) [Vol rate/Area] 48 mL/min/1.73 m2 Low >=59mL/min/1.73 m2 [facility] Chem S Comment on above: Interpretive Data: [...] 4.7 mmol/L Normal 3.5 - 5.3 mmol/L [facility] Remisol Sodium [Moles/Vol] 139 mmol/L Normal 135 - 145 mmol/L [facility] Remisol Urea nitrogen [Mass/Vol] 63 mg/dL High 5 - 21 mg/dL [facility] Urea nitrogen/Creatinine [Mass ratio] 39 mg/mg High 10 - 20 [facility] Remisol CHEMISTRYOrdered By: [email or web address] on 06-14-2023 Anion gap [Moles/Vol] 7 mmol/L Normal 6 - 16 mEq/L [facility] Remisol Calcium [Mass/Vol] 8.0 mg/dL Low 8.9 - 11.1 mg/dL [facility] Remisol Chloride [Moles/Vol] 106 mmol/L Normal 101 - 111 mmol/ L [facility] Remisol CO2 [Moles/Vol] 30 mmol/L Normal 21 - 31 mmol/L [facility] Remisol GFR/1.73 sq M.predicted among non-blacks MDRD (S/P/Bld) [Vol rate/Area] 37 mL/min/1.73 m2 Low >=59mL/min/1.73 m2 [facility] Chem S Comment on above: Interpretive Data: [...] 5.1 mmol/L Normal 3.5 - 5.3 mmol/L [facility] Remisol Sodium [Moles/Vol] 138 mmol/L Normal 135 - 145 mmol/L [facility] Remisol Urea nitrogen [Mass/Vol] 71 mg/dL High 5 - 21 mg/dL [facility] Remisol Urea nitrogen/Creatinine [Mass ratio] 36 mg/mg High 10 - 20 [facility] Remisol CHEMISTRYOrdered By: Sandee Hicks on 06-14-2023 [...] 31.6 g/dL Normal 31.4 - 36.0 gm/dL [facility] HemeAutoSS MCV (RBC) [Entitic vol] 88.8 fL Normal 80.0 - 100.0 fL [facility] HemeAutoSS Platelet mean volume (Bld) [Entitic vol] 7.3 fL Normal 6.4 - 10.8 fL [facility] HemeAutoSS Platelets (Bld) [#/Vol] 225.0 E9/L Normal 150.0 - 500.0 E9/L [facility] HemeAutoSS RBC (Bld) [#/Vol] 4.7 E12/L Normal 4.3 - 5.9 E12/L [facility] HemeAutoSS WBC corrected for nucl RBC Auto (Bld) [#/Vol] 7.8 E9/L Normal 4.0 - 11.0 E9/L [facility] HemeAutoSS CHEMISTRYOrdered By: SYSTEM SYSTEM on 06-13-2023 Anion gap [Moles/Vol] 9 mmol/L Normal 6 - 16 mEq/L [facility] Remisol Calcium [Mass/Vol] 8.3 mg/dL Low 8.9 - 11.1 mg/dL [facility] Remisol Chloride [Moles/Vol] 102 mmol/L Normal 101 - 111 mmol/ L [facility] Remisol CO2 [Moles/Vol] 30 mmol/L Normal 21 - 31 mmol/L [facility] Remisol Creatinine [Mass/Vol] 2.4 mg/dL High 0.5 - 1.3 mg/dL [facility] Remisol GFR/1.73 sq M.predicted among non-blacks MDRD (S/P/Bld) [Vol rate/Area] 29 mL/min/1.73 m2 Low >=59mL/min/1.73 m2 [facility] Chem S Comment on above: Interpretive Data: C hronic kidney disease could be indicated at eGFR's of less than 60 mL/min/1.73m2. Kidney failure is indicated at less than 15 mL/min/1.73m2. Glucose [Mass/Vol] 139 mg/dL Normal 55 - 199 mg/dL [facility] Remisol Comment on above: Interpretive Data: I f this glucose result represents a fasting glucose, interpretation should refer to the following reference range: 55-99 mg/dL Potassium [Moles/Vol] 4.8 mmol/L Normal 3.5 - 5.3 mmol/L [facility] Remisol Sodium [Moles/Vol] 136 mmol/L Normal 135 - 145 mmol/L [facility] Remisol Urea nitrogen [Mass/Vol] 69 mg/dL High 5 - 21 mg/dL [facility] Remisol Urea nitrogen/Creatinine [Mass ratio] 29 mg/mg High 10 - 20 [facility] Remisol CRP [Mass/Vol] 0.7 mg/dL Normal <=1.9mg/dL [facility] Remis ol CHEMISTRYOrdered By: Erin morocho on 06-13-2023 Albumin Elph (U) [Mass fraction] 97.0 mg/dL Invalid Interpretation Code [facility] Remisol Comment on above: Interpretive Data: T he reference range and other method performance specifications have not been established for this test; results should be integrated into the clinical context for interpretation. Creatinine (U) [Mass/Vol] 93.4 mg/dL Invalid Interpretation Code [facility] Remisol Comment on above: Interpretive Data: T he reference range and other method performance specifications have not been established for this test; results should be integrated into the clinical context for interpretation. Sodium (U) [Moles/Vol] 21 mmol/L Invalid Interpretation Code [facility] Remisol Comment on above: Interpretive Data: T he reference range and other method performance specifications have not been established for this test; results should be integrated into the clinical context for interpretation. CHEMISTRYOrdered By: Kaz Schmidt on 06-13-2023 U Osmolality 447 mOsm/kg Normal 50 - 1400 mOsm/kg [facility] Man UA SS HEMATOLOGYOrdered By: SYSTEM SYSTEM on 06-13-2023 Basophils/100 WBC (Bld) 0.3 % Normal 0.0 - 2.0 % FT [...] 4.0 E9/L [facility] HemeAutoSS Monocytes/100 WBC (Bld) 2.4 % Low 4.0 - 14.0 % [facility] HemeAutoSS Monocytes/Leukocytes Auto (Bld) [Pure # fraction] 0.1 E9/L Low 0.2 - 1.0 E9/L [facility] HemeAutoSS Neutrophils/100 WBC (Bld) 89.6 % High 36.0 - 75.0 % [facility] HemeAutoSS Neutrophils/Leukocyt es Auto (Bld) [Pure # fraction] 5.4 E9/L Normal 2.0 - 7.5 E9/L [facility] HemeAutoSS HEMATOLOGYOrdered By: Yohannes Rhodes on 06-13-2023 Erythrocyte distribution width (RBC) [Ratio] 15.4 % High 10.9 - 14.2 % [facility] HemeAutoSS Hematocrit (Bld) [Volume fraction] 44.4 % Normal 37.7 - 49.0 % [facility] HemeAutoSS Hemoglobin (Bld) [Mass/Vol] 14.0 g/dL Normal 13.5 - 17.5 gm/dL [facility]eAutoSS MCH (RBC) [Entitic mass] 28.4 pg Normal 27.0 - 34.0 pg [facility]eAutoSS MCHC (RBC) [Mass/Vol] 31.6 g/dL Normal 31.4 - 36.0 gm/dL [facility] HemeAutoSS MCV (RBC) [Entitic vol] 90.1 fL Normal 80.0 - 100.0 fL [facility]eAutoSS Platelet mean volume (Bld) [Entitic vol] 7.3 fL Normal 6.4 - 10.8 fL [facility] HemeAutoSS Platelets (Bld) [#/Vol] 211.0 E9/L Normal 150.0 - 500.0 E9/L [facility]eAutoSS RBC (Bld) [#/Vol] 4.9 E12/L Normal 4.3 - 5.9 E12/L [facility] HemeAutoSS WBC corrected for nucl RBC Auto (Bld) [#/Vol] 6.0 E9/L Normal 4.0 - 11.0 E9/L [facility] HemeAutoSS Reference Laboratory Testing Ordered By: Jalil DomainUser on 06-13-2023 Centromere protein B Ab Qn (S) AI Invalid Interpretation Code 0.0-0.9AI [facility] SendOutsSS Chromatin Ab Qn AI Invalid Interpretation Code 0.0-0.9AI [facility] DNA double strand Ab Qn (S) 33 [iU]/mL High 0-9International_ Unit/mL [facility] SendOuts[facility] Comment on above: Result Comment: Nega tive <5 Equivocal 5 - 9 Positive >9 Violette-1 extractable nuclear Ab Qn (S) AI Invalid Interpretation Code 0.0-0.9AI [facility] SendOuts[facility] Nuclear Ab Ql (S) Positive Invalid Interpretation Code Negative [facility] SendOut[facility] Comment on above: Result Comment: Perf ormed at: [facility] [id number] PhD Vern Gage Ribonucleoprotein extractable nuclear Ab Qn (S) AI Invalid Interpretation Code 0.0-0.9AI [facility] SendOutsSS SCL-70 extractable nuclear Ab Qn (S) AI Invalid Interpretation Code 0.0-0.9AI [facility]Out[facility] See below: Comment Invalid Interpretation Code [facility]Out[facility] Comment on above: Result Comment: Tarah ramos Potential Disease Association Homogeneous Systemic Lupus Erythematosus, Drug Induced Systemic Lupus Erythematosus, Chronic Autoimmune hepatitis, Juvenile Idiopathic Arthritis Speckled Sjogren Syndrome, Systemic Lupus Erythematosus, Subacute Cutaneous Lupus, Lupus, Congenital Heart Block, Mixed Connective Tissue Disease, Scleroderma-diffuse, Scleroderma-Autoimmune Myositis Overlap Syndrome, Systemic Lupus Ayadbhrjgskrw-Bfitqubrnec-Yhfgeqybuk Myositis Overlap Syndrome, Systemic Autoimmune Rheumatic Disease, [...] Cytopenias, Linear Scleroderma, Antiphospholipid Syndrome Performed at: [address] [id number] PhD Vern Gage Sjogrens syndrome-A extractable nuclear Ab Qn (S) AI Invalid Interpretation Code 0.0-0.9AI [facility] Sjogrens syndrome-B extractable nuclear Ab Qn (S) AI Invalid Interpretation Code 0.0-0.9AI [facility] SendOutsSS Quinn extractable nuclear Ab Qn (S) AI Invalid Interpretation Code 0.0-0.9AI [facility] URINALYSISOrdered By: Yohannes Schmidt on 06-13-2023 Bacteria LM Ql (Urine sed) Trace /HPF Normal Trace/HPF [facility] UA Auto SS Bilirubin Ql (U) Negative (06/13/23 10:09 AM) Normal Negative [facility] UA Auto SS Clarity (U) Clear (06/13/23 [...] AM) Normal Negative [facility] UA Auto SS Odanah.plasma/Lithi um.RBC (Bld) [Mass ratio] 0-3 /HPF Normal [...] Desc Clean Catch (06/13/23 10:09 AM) Normal [facility] UA Auto SS Urobilinogen Qn (U) 0.1320384 {Itz'U}/dL Normal 0.0 - 1.0 EU/dL [facility] UA Auto SS WBC Auto Ql (U) Negative (06/13/23 10:09 AM) Normal Negative [facility] UA Auto SS WBC casts LM.LPF (Urine sed) [#/Area] 4-10 (06/13/23 10:09 AM) Normal [facility] UA Auto SS WBC LM.HPF (Urine sed) [#/Area] 0-5 /HPF Normal 0-5/HPF [facility] UA Auto SS CHEMISTRYOrdered By: SYSTEM SYSTEM on 06-12-2023 Procalcitonin 0.07 ng/mL Normal 0.00 - 0.50 ng/mL [facility] Remisol Comment on above: Interpretive Data: < [...] Low 15.90 - 38.40 pg/mL [facility] Remisol Comment on above: Interpretive Data: T he 95% CI (Confidence Interval) PPV (Positive Predictive Value) for myocardial infarction in females is 38 pg/mL, in males 51 pg/mL. The results should be used in conjunction with clinical conditions of myocardial infarction. (Access High Sensitivity Troponin I Instructions For Use, [employer], March 2018) Magnesium [Mass/Vol] 2.1 mg/dL Normal 1.3 - 2.4 mg/dL FT Remisol Troponin I.cardiac [Mass/Vol] 9.20 pg/mL Low 15.90 - 38.40 pg/mL [facility] Remisol Comment on above: Interpretive Data: T he 95% CI (Confidence Interval) PPV (Positive Predictive Value) for myocardial infarction in females is 38 pg/mL, in males 51 pg/mL. The results should be used in conjunction with clinical conditions of myocardial infarction. (Access High Sensitivity Troponin I Instructions For Use, [employer], March 2018) Troponin I.cardiac [Mass/Vol] 7.00 pg/mL Low 15.90 - 38.40 pg/mL [facility] Remisol Comment on above: Interpretive Data: T he 95% CI (Confidence Interval) PPV (Positive Predictive Value) for myocardial infarction in females is 38 pg/mL, in males 51 pg/mL. The results should be used in conjunction with clinical conditions of myocardial infarction. (Access High Sensitivity Troponin I Instructions For Use, [employer], March 2018) Lactate [Mass/Vol] 1.7 mmol/L Normal 0.5 - 2.2 mmol/L [facility] Remisol CHEMISTRYOrdered By: Sasha Arroyo on 06-11-2023 Natriuretic peptide B (Bld) [Mass/Vol] 121 pg/mL High 5 - 80 pg/mL [facility] HemeManSS COAGULATIONOrdered By: Radha Quinn on 06-11-2023 aPTT Coag (PPP) [Time] 33.9 s Normal 25.1 - 36.5 second(s) [facility] Auto Coag Comment on above: Interpretive Data: [...] the same coagulation reagent and instrumentation as [facility]. Currently there are no coagulation studies available worldwide for children to 14 days, and no normal ranges. Heparin therapeutic range (represented by Anti-Factor Xa activity of 0.2 - 0.4 U/mL) corresponds to PTT of 56.6 - 109.0 sec. INR Coag (PPP) [Relative time] 1.0 {INR} Invalid Interpretation Code [facility] Auto Coag Comment on above: Interpretive Data: I NR results are specifically intended to assess patients stabilized on long-term Anticoagulation therapy suggested INR s Less Intensive Anticoagulation 2.0 3.0 Conventional Range 3.0 4.5 PT Coag (PPP) [Time] 11.2 s Normal 9.4 - 1 2.5 second(s) [facility] Auto Coag Comment on above: Interpretive Data: [...] the same coagulation reagent and instrumentation as [facility]. Currently there are no coagulation studies available worldwide for children to 14 days, and no normal ranges. Blood GasesOrdered By: Akash Tubbs on 06-11-2023 [...] 4.66 mg/dL Normal 4.40 - 5.30 mg/dL FT Re sp Auto SS cCl- Art 101.0 mmol/L Normal 101.0 - 111.0 mmol/L [facility] Resp Auto SS cGlu Art 57 mg/dL Normal 55 - 99 mg/dL [facility] Resp Auto SS cK+ Art 4.7 mmol/L Normal 3.5 - 5.3 mmol/L [facility] Res p Auto SS cLac Art 1.3 mmol/L Normal 0.5 - 2.2 mmol/L [facility] Res p Auto SS roofer applicator+ Art 140.0 mmol/L Normal 135.0 - 145.0 [...] 0.1 % Normal 0.0 - 1.9 % [facility] Resp Auto SS FO2Hb Art 88.7 % Low 93.0 - 100.0 % [facility] Resp Auto SS HCO3 (Bld) [Moles/Vol] 28.8 mmol/L High 22.0 - 26.0 mmol/L [facility] Resp Auto SS Hemoglobin (Bld) [Mass/Vol] 14.5 g/dL Normal 12.0 - 17.0 gm/dL [facility] Resp Auto SS P CO2 Arterial 59.5 mm[Hg] High 35.0 - 45.0 mmHg FT C Resp Auto SS P O2 Arterial 57.8 mm[Hg] Low 80.0 - 100.0 mmHg FT C Resp Auto SS pH (Bld) 7.348 [pH] Low 7.350 - 7.450 [facility] Resp Auto SS Sample Site L Radial (06/11/23 2:22 PM) Normal [facility] Resp Auto SS Sample Type Arterial Draw (06/11/23 2:22 PM) Normal [facility] Resp Auto SS Sodium [Moles/Vol] 32 mmol/L Invalid Interpretation Code [facility] Resp Auto SS HEMATOLOGYOrdered By: SYSTEM SYSTEM on 06-11-2023 Basophils/100 WBC (Bld) 1.1 % Normal 0.0 - 2.0 % [facility] [...] 63.2 % Normal 36.0 - 75.0 % [facility] HemeAutoSS Neutrophils/Leukocyt [...] 28.3 pg Normal 27.0 - 34.0 pg [facility] HemeAutoSS MCHC (RBC) [Mass/Vol] 31.8 g/dL Normal [...] NEG Ctl Pass (06/11/23 2:16 PM) Normal [facility] Man Sero Rapid COV Int POS Ctl Pass (06/11/23 2:16 PM) Normal [facility] Man Sero SARS-CoV+SARS-CoV-2 (COVID-19) Ag IA.rapid Ql (Resp) Not Detected (06/11/23 2:16 PM) Normal Not Detected [facility] Man Sero Comment on above: Interpretive Data: Mariia hdez BD Veritor System for Rapid Detection of SARS-CoV-2 [...] or revoked sooner. No Panel InformationOrdered By: ANGPROCESSSERCO[facility] MICRO[facility]OLOG[facility] on 06-11-2023 Blood Culture Charcoal No growth at 4 days. Final to follow at 7 days. [facility] Blood Culture Charcoal No growth at 4 days. Final to follow at 7 days. [facility] CHEMISTRYOrdered By: Tatyana Long on 05-22-2023 HbA1c (Bld) [Mass fraction] 11.0 % High <=5.9% [facility] ChemAutoSS CHEMISTRYOrdered By: Lab ROP User on 08-04-2022 Glucose [Mass/Vol] mg/dL Invalid Interpretation Code 55 - 99 mg/dL [facility] POC Subsection Comment on above: Result Comment: Thelma maxwell RN/ POC Device SN [id number] Invalid Interpretation Code [facility] POC Subsection POC User ID [id number] Invalid Interpretation Code [facility] POC Subsection POC Username JANIA BALDWIN Invalid Interpretation Code [facility] POC Subsection CHEMISTRYOrdered By: SYSTEM SYSTEM on 08-04-2022 Troponin I.cardiac [Mass/Vol] 9.90 pg/mL Low 15.90 - 38.40 pg/mL [facility] Anion gap [Moles/Vol] 16 mmol/L Normal 6 - 16 mEq/L [facility] Remisol Calcium [Mass/Vol] 9.4 mg/dL Normal 8.9 - 11.1 mg/dL [facility] Chloride [Moles/Vol] 89 mmol/L Low 101 - 111 mmol/ L [facility] Remisol CO2 [Moles/Vol] 24 mmol/L Normal 21 - 31 mmol/L [facility] Creatinine [Mass/Vol] 1.7 mg/dL High 0.5 - 1.3 mg/dL [facility] GFR/1.73 sq M.predicted among blacks MDRD (S/P/Bld) [Vol rate/Area] 50 mL/min/1.73 m2 Low >=59mL/min/1.73 m2 [facility] Chem S GFR/1.73 sq M.predicted among non-blacks MDRD (S/P/Bld) [Vol rate/Area] 41 mL/min/1.73 m2 Low >=59mL/min/1.73 m2 [facility] Chem S Glucose [Mass/Vol] 897 mg/dL Invalid Interpretation Code 55 - 199 mg/dL [facility] Remisol Comment on above: Result Comment: Crit [...] Result Comment: Thelma BAE POC Device SN [id number] Invalid Interpretation Code [facility] POC Subsection POC User ID [id number] Invalid Interpretation Code [facility] POC Subsection POC Username HUDSON ABDI Invalid Interpretation Code [facility] POC Subsection CHEMISTRYOrdered By: Lab ROP User on 03-08-2022 Glucose [Mass/Vol] 395 mg/dL High 55 - 99 mg/dL [facility] C POC Subsection Comment on above: Result Comment: Thelma BAE POC Device SN [id number] Invalid Interpretation Code [facility] POC Subsection POC User ID [id number] Invalid Interpretation Code [facility] POC Subsection POC Username ANURAG PRIYANKA Invalid Interpretation Code [facility] POC Subsection CHEMISTRYOrdered [...] 9.0 mg/dL Normal 8.9 - 11.1 mg/dL [facility] Remisol Chloride [Moles/Vol] 96 mmol/L Low 101 - 111 mmol/ L [facility] Remisol CO2 [Moles/Vol] 25 mmol/L Normal 21 - 31 mmol/L [facility] Remisol Creatinine [Mass/Vol] 1.5 mg/dL High 0.5 - 1.3 mg/dL [facility] Remisol GFR/1.73 sq M.predicted among blacks MDRD (S/P/Bld) [Vol rate/Area] 57 mL/min/1.73 m2 Low >=59mL/min/1.73 m2 FT Chem S GFR/1.73 sq M.predicted among non-blacks MDRD (S/P/Bld) [Vol rate/Area] 47 mL/min/1.73 m2 Low >=59mL/min/1.73 m2 FT Chem S Globulin (S) [Mass/Vol] 3.4 g/dL Normal 1.4 - 4.0 gm/dL [facility] Remisol Glucose [Mass/Vol] 411 mg/dL High 55 - 199 mg/dL [facility]isol Potassium [Moles/Vol] 4.4 mmol/L Normal 3.5 - 5.3 mmol/L [facility] Remisol Protein [Mass/Vol] 7.1 g/dL Normal 6.0 - 7.8 gm/dL F [facility] Remisol Sodium [Moles/Vol] 131 mmol/L Low 135 [...] 11:09 PM) Invalid Interpretation Code Not Detected [facility] Man Sero Comment on above: Result Comment: [...] PM) Normal Negative [facility] UA Auto SS Odanah.plasma/Lithi um.RBC (Bld) [Mass ratio] 0-3 /HPF Normal [...] [facility] UA Auto SS Urobilinogen Qn (U) 0.0479222 {Itz'U}/dL Normal 0.0 - 1.0 EU/dL [facility] UA Auto SS WBC Auto Ql (U) Negative (03/08/22 11:09 PM) Normal Negative [facility] UA Auto SS WBC LM.HPF (Urine sed) [#/Area] 0-5 /HPF Normal 0-5/HPF [facility] UA Auto SS Vital Signs Date Time Vital Sign Value Performing Clinician Facility 03-13-2025 12:30-0400 Body height 180.3 cm Mounika Brooke MD Work Phone: [facility] 03-13-2025 12:30-0400 Body mass index (BMI) [Ratio] 38.02 kg/m2 Mounika Brooke MD Work Phone: [facility] 03-13-2025 12:30-0400 Body temperature 98.4 [degF] Mounika Brooke MD Work Phone: [facility] 03-13-2025 12:30-0400 Body weight 123.65 kg Mounika Brooke MD Work Phone: [facility] 03-13-2025 12:30-0400 Diastolic blood pressure 60 mm[Hg] Mounika Brooke MD Work Phone: [facility] 03-13-2025 12:30-0400 Heart rate 80 /min Mounika Brooke MD Work Phone: [facility] 03-13-2025 12:30-0400 SaO2% (BldA) [Mass fraction] 92 % Mounika Brooke MD Work Phone: [facility] 03-13-2025 12:30-0400 Systolic blood pressure 124 mm[Hg] Mounika Brooke MD Work Phone: [facility] 02-05-2025 12:28-0400 Body height 180.3 cm Mounika Brooke MD Work Phone: [facility] 02-05-2025 12:28-0400 Body mass index (BMI) [Ratio] 36.43 kg/m2 Mounika Brooke MD Work Phone: [facility] 02-05-2025 12:28-0400 Body temperature 98.71 [degF] Mounika Brooke MD Work Phone: [facility] 02-05-2025 12:28-0400 Body weight 118.48 kg Mounika Brooke MD Work Phone: [facility] 02-05-2025 12:28-0400 Diastolic blood pressure 82 mm[Hg] Mounika Brooke MD Work Phone: [facility] 02-05-2025 12:28-0400 Heart rate 77 /min Mounika Brooke MD Work Phone: [facility] 02-05-2025 12:28-0400 SaO2% (BldA) [Mass fraction] 98 % Mounika Brooke MD Work Phone: [facility] 02-05-2025 12:28-0400 Systolic blood pressure 138 mm[Hg] Mounika Brooke MD Work Phone: [facility] 12-21-2024 15:22-0400 Hourly Rounding [facility] 12-21-2024 15:22-0400 Promise to Return [facility] 12-21-2024 14:32-0400 Hourly Rounding [facility] 12-21-2024 14:32-0400 Promise to Return [facility] 12-21-2024 13:30-0400 Hourly Rounding [facility] 12-21-2024 13:30-0400 Promise to Return [facility] 12-21-2024 11:00-0400 Blood Pressure Location [facility] 12-21-2024 11:00-0400 Body temperature 97.88 [degF] [facility] 12-21-2024 11:00-0400 Diastolic blood pressure 78 mm[Hg] [facility] 12-21-2024 11:00-0400 Heart rate 80 /min [facility] 12-21-2024 11:00-0400 Mean blood pressure 100 mm[Hg] [facility] 12-21-2024 11:00-0400 Respiratory rate 16 /min [facility] 12-21-2024 11:00-0400 SaO2% (BldA) [Mass fraction] 96 % [facility] 12-21-2024 11:00-0400 Systolic blood pressure 145 mm[Hg] [facility] 12-21-2024 08:00-0400 Diastolic blood pressure 88 mm[Hg] [facility] 12-21-2024 08:00-0400 Heart rate 76 /min [facility] 12-21-2024 08:00-0400 Mean blood pressure 113 mm[Hg] [facility] 12-21-2024 08:00-0400 SaO2% (BldA) [Mass fraction] 97 % [facility] 12-21-2024 08:00-0400 Systolic blood pressure 164 mm[Hg] [facility] 12-21-2024 04:00-0400 Body temperature 97.7 [degF] [facility] 12-21-2024 04:00-0400 Diastolic blood pressure 60 mm[Hg] [facility] 12-21-2024 04:00-0400 Diastolic blood pressure 76 mm[Hg] [facility] 12-21-2024 04:00-0400 Heart rate 95 /min [facility] 12-21-2024 04:00-0400 Heart rate 62 /min [facility] 12-21-2024 04:00-0400 Mean blood pressure 90 mm[Hg] [facility] 12-21-2024 04:00-0400 Mean blood pressure 72 mm[Hg] [facility] 12-21-2024 04:00-0400 Respiratory rate 18 /min [facility] 12-21-2024 04:00-0400 SaO2% (BldA) [Mass fraction] 95 % [facility] 12-21-2024 04:00-0400 Systolic blood pressure 97 mm[Hg] [facility] 12-21-2024 04:00-0400 Systolic blood pressure 118 mm[Hg] [facility] 12-21-2024 00:00-0400 Heart rate 62 /min [facility] 12-20-2024 19:37-0400 Heart rate 67 /min [facility] 12-20-2024 14:09-0400 SaO2% (BldA) [Mass fraction] 93.9 % [facility] Resp Auto SS 12-04-2024 14:11-0400 Body height 180.3 cm Mounika Brooke MD Work Phone: [facility] 12-04-2024 14:11-0400 Body mass index (BMI) [Ratio] 35.7 kg/m2 Mounika Brooke MD Work Phone: [facility] 12-04-2024 14:11-0400 Body temperature 97.5 [degF] Mounika Brooke MD Work Phone: [facility] 12-04-2024 14:11-0400 Body weight 116.12 kg Mounika Brooke MD Work Phone: [facility] 12-04-2024 14:11-0400 Diastolic blood pressure 70 mm[Hg] Mounika Brooke MD Work Phone: [facility] 12-04-2024 14:11-0400 Heart rate 111 /min Mounika Brooke MD Work Phone: [facility] 12-04-2024 14:11-0400 SaO2% (BldA) [Mass fraction] 97 % Mounika Brooke MD Work Phone: [facility] 12-04-2024 14:11-0400 Systolic blood pressure 120 mm[Hg] Mounika Brooke MD Work Phone: [facility] 12-02-2024 15:00-0400 Heart rate 74 /min Nicole Myers [facility] 12-02-2024 15:00-0400 SaO2% (BldA) [Mass fraction] 93 % Nicole Myers [facility] 12-02-2024 15:00-0400 Diastolic blood pressure 97 mm[Hg] Nicole Sale [facility] 12-02-2024 15:00-0400 Mean blood pressure 120 mm[Hg] Nicole Sale [facility] 12-02-2024 15:00-0400 Respiratory rate 18 /min Nicole Myers [facility] 12-02-2024 15:00-0400 Systolic blood pressure 166 mm[Hg] Nicole Myers [facility] 12-02-2024 14:00-0400 SaO2% (BldA) [Mass fraction] 97 % Nicole Myers [facility] 12-02-2024 14:00-0400 Heart rate 78 /min Nicole Myers [facility] 12-02-2024 14:00-0400 Diastolic blood pressure 86 mm[Hg] Nicole Sale [facility] 12-02-2024 14:00-0400 Mean blood pressure 113 mm[Hg] Nicole Sale [facility] 12-02-2024 14:00-0400 Systolic blood pressure 167 mm[Hg] Nicole Jonathon [facility] 12-02-2024 13:00-0400 SaO2% (BldA) [Mass fraction] 96 % Nicole Sale [facility] 12-02-2024 13:00-0400 Heart rate 73 /min Nicole Myers [facility] 12-02-2024 13:00-0400 Diastolic blood pressure 98 mm[Hg] Nicole Myers [facility] 12-02-2024 13:00-0400 Mean blood pressure 123 mm[Hg] Nicole Myers [facility] 12-02-2024 13:00-0400 Systolic blood pressure 173 mm[Hg] Nicole Myers [facility] 12-02-2024 12:42-0400 Body temperature 96.8 [degF] [facility] 12-02-2024 12:42-0400 Heart rate 81 /min Nicole Myers [facility] 12-02-2024 12:42-0400 Respiratory rate 20 /min Nicole Myers [facility] 09-04-2024 14:00-0500 Body height 180.3 cm Kayla Sweeney MD Work Phone: [facility] 09-04-2024 14:00-0500 Body mass index (BMI) [Ratio] 39.05 kg/m2 Kayla Sweeney MD Work Phone: [facility] 09-04-2024 14:00-0500 Body weight 127.01 kg Kayla Sweeney MD Work Phone: [facility] 09-04-2024 14:00-0500 Diastolic blood pressure 66 mm[Hg] Kayla Sweeney MD Work Phone: [facility] 09-04-2024 14:00-0500 Heart rate 80 /min Kayla Sweeney MD Work Phone: [facility] 09-04-2024 14:00-0500 Respiratory rate 18 /min Kayla Sweeney MD Work Phone: [facility] 09-04-2024 14:00-0500 Systolic blood pressure 116 mm[Hg] Kayla Sweeney MD Work Phone: [facility] 07-15-2024 14:27-0500 Body height 180.3 cm Kayla Sweeney MD Work Phone: [facility] 07-15-2024 14:27-0500 Body mass index (BMI) [Ratio] 38.22 kg/m2 Kayla Sweeney MD Work Phone: [facility] 07-15-2024 14:27-0500 Body weight 124.29 kg Kayla Sweeney MD Work Phone: [facility] 07-15-2024 14:27-0500 Diastolic blood pressure 58 mm[Hg] Kayla Sweeney MD Work Phone: [facility] 07-15-2024 14:27-0500 Heart rate 81 /min Kayla Sweeney MD Work Phone: [facility] 07-15-2024 14:27-0500 Respiratory rate 18 /min Kayla Sweeney MD Work Phone: [facility] 07-15-2024 14:27-0500 Systolic blood pressure 120 mm[Hg] Kayla Sweeney MD Work Phone: [facility] 07-11-2024 13:50-0500 Body height 175.3 cm Mounika Brooke MD Work Phone: [facility] 07-11-2024 13:50-0500 Body mass index (BMI) [Ratio] 43.15 kg/m2 Mounika Brooke MD Work Phone: [facility] 07-11-2024 13:50-0500 Body temperature 97.81 [degF] Mounika Brooke MD Work Phone: [facility] 07-11-2024 13:50-0500 Body weight 132.54 kg Mounika Brooke MD Work Phone: [facility] 07-11-2024 13:50-0500 Diastolic blood pressure 80 mm[Hg] Mounika Brooke MD Work Phone: [facility] 07-11-2024 13:50-0500 Heart rate 73 /min Mounika Brooke MD Work Phone: [facility] 07-11-2024 13:50-0500 SaO2% (BldA) [Mass fraction] 92 % Mounika Brooke MD Work Phone: [facility] 07-11-2024 13:50-0500 Systolic blood pressure 130 mm[Hg] Mounika Brooke MD Work Phone: [facility] 07-09-2024 14:40-0500 Body temperature 98.06 [degF] Nicole Myers [facility] 07-09-2024 14:40-0500 Diastolic blood pressure 93 mm[Hg] Nicole Myers [facility] 07-09-2024 14:40-0500 Heart rate 73 /min Nicole Myers [facility] 07-09-2024 14:40-0500 Respiratory rate 20 /min Nicole Myers [facility] 07-09-2024 14:40-0500 SaO2% (BldA) [Mass fraction] 96 % Nicole Meyrs [facility] 07-09-2024 14:40-0500 Systolic blood pressure 196 mm[Hg] Nicole Myers [facility] 07-03-2024 12:45-0500 Body mass index (BMI) [Ratio] 43.3 kg/m2 Mounika Brooke MD Work Phone: [facility] 07-03-2024 12:45-0500 Body temperature 98.01 [degF] Mounika Brooke MD Work Phone: [facility] 07-03-2024 12:45-0500 Body weight 133 kg Mounika Brooke MD Work Phone: [facility] 07-03-2024 12:45-0500 Heart rate 84 /min Mounika Brooke MD Work Phone: [facility] 07-03-2024 12:45-0500 SaO2% (BldA) [Mass fraction] 93 % Mounika Brooke MD Work Phone: [facility] 06-23-2024 13:39-0500 Body temperature 97.7 [degF] [facility] 06-23-2024 13:39-0500 Diastolic blood pressure 79 mm[Hg] [facility] 06-23-2024 13:39-0500 Heart rate 71 /min [facility] 06-23-2024 13:39-0500 Respiratory rate 22 /min [facility] 06-23-2024 13:39-0500 SaO2% (BldA) [Mass fraction] 92 % [facility] 06-23-2024 13:39-0500 Systolic blood pressure 182 mm[Hg] [facility] 06-21-2024 13:36-0400 Body height 177.8 cm Jennifer ROWAN Work Phone: [facility] 06-21-2024 13:36-0400 Body mass index (BMI) [Ratio] 41.78 kg/m2 Jennifer ROWAN Work Phone: [facility] 06-21-2024 13:36-0400 Body temperature 98.1 [degF] Jennifer ROWAN Work Phone: [facility] 06-21-2024 13:36-0400 Body weight 132.09 kg Jennifer ROWAN Work Phone: [facility] 06-21-2024 13:36-0400 Diastolic blood pressure 89 mm[Hg] Jennifer ROWAN Work Phone: [facility] 06-21-2024 13:36-0400 Heart rate 71 /min Jennifer Shrot PA Work Phone: [facility] 06-21-2024 13:36-0400 SaO2% (BldA) [Mass fraction] 91 % Jennifer Short PA Work Phone: [facility] 06-21-2024 13:36-0400 Systolic blood pressure 139 mm[Hg] Jennifer Short PA Work Phone: [facility] 04-29-2024 14:19-0400 Body height 177.8 cm Mounika Brokoe MD Work Phone: [facility] 04-29-2024 14:19-0400 Body mass index (BMI) [Ratio] 42.47 kg/m2 Mounika Brooke MD Work Phone: [facility] 04-29-2024 14:19-0400 Body temperature 98.01 [degF] Mounika Brooke MD Work Phone: [facility] 04-29-2024 14:19-0400 Body weight 134.26 kg Mounika Brooke MD Work Phone: [facility] 04-29-2024 14:19-0400 Diastolic blood pressure 70 mm[Hg] Mounika Brooke MD Work Phone: [facility] 04-29-2024 14:19-0400 Heart rate 75 /min Mounika Brooke MD Work Phone: [facility] 04-29-2024 14:19-0400 SaO2% (BldA) [Mass fraction] 88 % Mounika Brooke MD Work Phone: [facility] 04-29-2024 14:19-0400 Systolic blood pressure 138 mm[Hg] Mounika Brooke MD Work Phone: [facility] 02-09-2024 14:31-0400 [address] Pressure [address] [facility] 02-09-2024 14:31-0400 Body temperature 97.88 [degF] Gisselle Orzech [facility] 02-09-2024 14:31-0400 Diastolic blood pressure 86 mm[Hg] Gisselle Orzech [facility] 02-09-2024 14:31-0400 Heart rate 72 /min Gisselle Orzech [facility] 02-09-2024 14:31-0400 Respiratory rate 16 /min Gisselle Orzech [facility] 02-09-2024 14:31-0400 Systolic blood pressure 138 mm[Hg] Gisselle Orzech [facility] 01-15-2024 17:00-0400 Diastolic blood pressure 89 mm[Hg] Nicole Jonathon [facility] 01-15-2024 17:00-0400 Heart rate 77 /min Nicole Jonathon [facility] 01-15-2024 17:00-0400 Mean blood pressure 102 mm[Hg] Nicole Jonathon [facility] 01-15-2024 17:00-0400 Respiratory rate 15 /min Nicole Jonathon [facility] 01-15-2024 17:00-0400 Systolic blood pressure 128 mm[Hg] Nicole Jonathon [facility] 01-15-2024 16:24-0400 Diastolic blood pressure 93 mm[Hg] Nicole Jonathon [facility] 01-15-2024 16:24-0400 Heart rate 69 /min Nicole Jonathon [facility] 01-15-2024 16:24-0400 Respiratory rate 18 /min Nicole Myers [facility] 01-15-2024 16:24-0400 SaO2% (BldA) [Mass fraction] 92 % Nicole Myers [facility] 01-15-2024 16:24-0400 Systolic blood pressure 156 mm[Hg] Nicole Myers [facility] 11-17-2023 12:30-0400 Diastolic blood pressure 78 mm[Hg] MD Mounika Brooke Work Phone: [facility] 11-17-2023 12:30-0400 Systolic blood pressure 153 mm[Hg] MD Mounika Brooke Work Phone: [facility] 11-17-2023 12:12-0400 Heart rate 82 /min MD Mounika Brooke Work Phone: [facility] 11-17-2023 12:12-0400 Respiratory rate 20 /min MD Mounika Brooke Work Phone: [facility] 11-17-2023 11:26-0400 Body temperature 97.6 [degF] MD Mounika Brooke Work Phone: [facility] 11-17-2023 11:26-0400 SaO2% (BldA) [Mass fraction] 96 % MD Mounika Brooke Work Phone: [facility] 11-17-2023 09:15-0400 Inhaled oxygen flow rate 4 L/min MD Mounika Brooke Work Phone: [facility] 11-17-2023 04:17-0400 Body weight 133.2 kg MD Mounika Brooke Work Phone: [facility] 11-17-2023 00:50-0400 Inhaled oxygen concentration 40 % MD Mounika Brooke Work Phone: [facility] 11-13-2023 15:19-0400 Body height 180.34 cm MD Mounika Brooke Work Phone: [facility] 11-11-2023 16:30-0400 Diastolic blood pressure 65 mm[Hg] [facility] 11-11-2023 16:30-0400 Heart rate 63 /min [facility] 11-11-2023 16:30-0400 Mean blood pressure 79 mm[Hg] [facility] 11-11-2023 16:30-0400 Respiratory rate 18 /min [facility] 11-11-2023 16:30-0400 SaO2% (BldA) [Mass fraction] 96 % [facility] 11-11-2023 16:30-0400 Systolic blood pressure 106 mm[Hg] [facility] 11-11-2023 16:00-0400 Diastolic blood pressure 62 mm[Hg] [facility] 11-11-2023 16:00-0400 Heart rate 64 /min [facility] 11-11-2023 16:00-0400 Mean blood pressure 84 mm[Hg] [facility] 11-11-2023 16:00-0400 Respiratory rate 15 /min [facility] 11-11-2023 16:00-0400 Systolic blood pressure 128 mm[Hg] [facility] 11-11-2023 15:30-0400 Diastolic blood pressure 77 mm[Hg] [facility] 11-11-2023 15:30-0400 Heart rate 62 /min [facility] 11-11-2023 15:30-0400 Mean blood pressure 98 mm[Hg] [facility] 11-11-2023 15:30-0400 Respiratory rate 20 /min [facility] 11-11-2023 15:30-0400 SaO2% (BldA) [Mass fraction] 95 % [facility] 11-11-2023 15:30-0400 Systolic blood pressure 141 mm[Hg] [facility] 11-11-2023 09:31-0400 FIO2 50 1 [facility] 11-11-2023 09:31-0400 Respiratory rate 20 /min [facility] 11-11-2023 09:17-0400 SaO2% (BldA) [Mass fraction] 88.7 % [facility] 11-11-2023 09:15-0400 Respiratory rate 24 /min [facility] 11-11-2023 09:07-0400 Respiratory rate 24 /min [facility] 11-11-2023 09:05-0400 Body temperature 98.6 [degF] [facility] 11-11-2023 09:05-0400 Heart rate 77 /min [facility] 11-11-2023 09:05-0400 Heart rate 76 /min [facility] 11-11-2023 08:05-0400 Body temperature 98.6 [degF] [facility] 10-30-2023 05:17-0400 Body temperature 98.42 [degF] Kaylinn Dokken [facility] 10-30-2023 05:17-0400 Diastolic blood pressure 70 mm[Hg] [facility] D[facility] 10-30-2023 05:17-0400 Heart rate 80 /min Kaylinn Dokken [facility] 10-30-2023 05:17-0400 Respiratory rate 20 /min Kaylinn Dokken [facility] 10-30-2023 05:17-0400 SaO2% (BldA) [Mass fraction] 94 % Staci Beck [facility] 10-30-2023 05:17-0400 Systolic blood pressure 153 mm[Hg] Staci Beck [facility] 10-24-2023 23:08-0500 SaO2% (BldA) [Mass fraction] 93 % [facility] Comment on above: Order Comment: Specimen Type: BLOOD SPEC IMEN Ordering Facility: [facility] Address: [address] [place] [address] Performed By: #### 1 [id number], [id number] #### [facility] CLIA [id number] [address] [place] [address] 10-24-2023 18:39-0500 SaO2% (BldA) [Mass fraction] 96 % [facility] Comment on above: Order Comment: Specimen Type: BLOOD SPEC IMEN Ordering Facility: [facility] Address: [address] [place] [address] Performed By: #### P TTAC #### [facility] CLIA [id number] [address] [place] [address] 10-15-2023 06:20-0500 SaO2% (BldA) [Mass fraction] 98 % Mone Martinez [facility] 10-15-2023 06:12-0500 Body temperature 98.06 [degF] Mone Martinez [facility] 10-15-2023 06:12-0500 Diastolic blood pressure 75 mm[Hg] Mone Martinez [facility] 10-15-2023 06:12-0500 Heart rate 77 /min Mone Martinez [facility] 10-15-2023 06:12-0500 Respiratory rate 20 /min Mone Martinez [facility] 10-15-2023 06:12-0500 SaO2% (BldA) [Mass fraction] 98 % Mone Martinez [facility] 10-15-2023 06:12-0500 Systolic blood pressure 145 mm[Hg] Mone Martinez [facility] 10-12-2023 11:38-0500 Body temperature 97 [degF] MD Mounika Brooke Work Phone: [facility] 10-12-2023 11:38-0500 Diastolic blood pressure 76 mm[Hg] MD Mounika Brooke Work Phone: [facility] 10-12-2023 11:38-0500 Heart rate 74 /min MD Mounika Brooke Work Phone: [facility] 10-12-2023 11:38-0500 Inhaled oxygen flow rate 4 L/min MD Mounika Brooke Work Phone: [facility] 10-12-2023 11:38-0500 Respiratory rate 18 /min MD Mounika Brooke Work Phone: [facility] 10-12-2023 11:38-0500 SaO2% (BldA) [Mass fraction] 97 % MD Mounika Brooke Work Phone: [facility] 10-12-2023 11:38-0500 Systolic blood pressure 148 mm[Hg] MD Mounika Brooke Work Phone: [facility] 10-12-2023 05:08-0500 Body weight 135.6 kg MD Mounika Brooke Work Phone: [facility] 10-12-2023 00:00-0500 Inhaled oxygen concentration 4 % MD Mounika Brooke Work Phone: [facility] 10-09-2023 14:10-0500 Body height 182.88 cm MD Mounika Brooke Work Phone: [facility] 10-06-2023 23:47-0500 Body temperature 98.4 [degF] MD Mounika Brooke Work Phone: [facility] 10-06-2023 23:47-0500 Diastolic blood pressure 78 mm[Hg] MD Mounika Brooke Work Phone: [facility] 10-06-2023 23:47-0500 Heart rate 80 /min MD Mounika Brooke Work Phone: [facility] 10-06-2023 23:47-0500 Inhaled oxygen flow rate 6 L/min MD Mounika Brooke Work Phone: [facility] 10-06-2023 23:47-0500 Respiratory rate 20 /min MD Mounika Brooke Work Phone: [facility] 10-06-2023 23:47-0500 SaO2% (BldA) [Mass fraction] 94 % MD Mounika Brooke Work Phone: [facility] 10-06-2023 23:47-0500 Systolic blood pressure 160 mm[Hg] MD Mounika Brooke Work Phone: [facility] 10-06-2023 20:13-0500 Body height 182.88 cm MD Mounika Brooke Work Phone: [facility] 10-06-2023 20:13-0500 Body weight 136.98 kg MD Mounika Brooke Work Phone: [facility] 09-24-2023 20:07-0500 Body temperature 97.52 [degF] Jose Miguel Syl[facility] 09-24-2023 20:07-0500 Diastolic blood pressure 75 mm[Hg] Jose Miguel [facility] 09-24-2023 20:07-0500 Heart rate 80 /min [facility] 09-24-2023 20:07-0500 Respiratory rate 18 /min [facility] 09-24-2023 20:07-0500 SaO2% (BldA) [Mass fraction] 93 % [facility] 09-24-2023 20:07-0500 Systolic blood pressure 150 mm[Hg] [facility] 09-17-2023 15:00-0500 Diastolic blood pressure 67 mm[Hg] [facility] 09-17-2023 15:00-0500 Heart rate 80 /min [facility] 09-17-2023 15:00-0500 Mean blood pressure 94 mm[Hg] [facility] 09-17-2023 15:00-0500 Respiratory rate 18 /min [facility] 09-17-2023 15:00-0500 SaO2% (BldA) [Mass fraction] 93 % [facility] 09-17-2023 15:00-0500 Systolic blood pressure 147 mm[Hg] [facility] 09-17-2023 14:23-0500 Body temperature 98.24 [degF] [facility] 09-17-2023 14:23-0500 Diastolic blood pressure 56 mm[Hg] [facility] 09-17-2023 14:23-0500 Heart rate 79 /min [facility] 09-17-2023 14:23-0500 Respiratory rate 20 /min [facility] 09-17-2023 14:23-0500 SaO2% (BldA) [Mass fraction] 92 % [facility] 09-17-2023 14:23-0500 Systolic blood pressure 99 mm[Hg] [facility] 08-06-2023 13:13-0500 Body temperature 97.88 [degF] [facility] 08-06-2023 13:13-0500 Diastolic blood pressure 78 mm[Hg] [facility] 08-06-2023 13:13-0500 Heart rate 91 /min [facility] 08-06-2023 13:13-0500 Respiratory rate 20 /min [facility] 08-06-2023 13:13-0500 SaO2% (BldA) [Mass fraction] 93 % [facility] 08-06-2023 13:13-0500 Systolic blood pressure 178 mm[Hg] [facility] 06-21-2023 13:55-0400 Diastolic blood pressure 74 mm[Hg] DO [facility] 06-21-2023 13:55-0400 Inhaled oxygen flow rate 4 L/min DO [facility] 06-21-2023 13:55-0400 SaO2% (BldA) [Mass fraction] 94 % DO [facility] 06-21-2023 13:55-0400 Systolic blood pressure 152 mm[Hg] DO [facility] 06-21-2023 13:52-0400 Body temperature 97.3 [degF] DO [facility] 06-21-2023 13:52-0400 Heart rate 72 /min DO [facility] 06-21-2023 13:52-0400 Respiratory rate 20 /min DO [facility] 06-21-2023 06:00-0400 Body weight 147.4 kg DO [facility] 06-19-2023 15:26-0400 Body height 182.88 cm DO Art Kirby [facility] 06-19-2023 02:16-0400 Diastolic blood pressure 77 mm[Hg] DO Reid Mendy Work Phone: [facility] 06-19-2023 02:16-0400 Heart rate 77 /min DO Reid Mendy Work Phone: [facility] 06-19-2023 02:16-0400 Inhaled oxygen flow rate 6 L/min DO Reid Mendy Work Phone: [facility] 06-19-2023 02:16-0400 Respiratory rate 20 /min DO Reid Mendy Work Phone: [facility] 06-19-2023 02:16-0400 SaO2% (BldA) [Mass fraction] 91 % DO Reid Mendy Work Phone: [facility] 06-19-2023 02:16-0400 Systolic blood pressure 170 mm[Hg] DO Reid Mendy Work Phone: [facility] 06-18-2023 21:43-0400 Body height 182.88 cm DO Reid Mendy Work Phone: [facility] 06-18-2023 21:43-0400 Body temperature 98.5 [degF] DO Reid Mendy Work Phone: [facility] 06-18-2023 21:43-0400 Body weight 140.61 kg DO Reid Mendy Work Phone: [facility] 06-15-2023 17:22-0400 Hourly Rounding [facility] 06-15-2023 17:22-0400 Promise to Return [facility] 06-15-2023 16:25-0400 Hourly Rounding [facility] 06-15-2023 16:25-0400 Promise to Return [facility] 06-15-2023 16:20-0400 Heart rate 84 /min [facility] 06-15-2023 16:20-0400 Respiratory rate 20 /min [facility] 06-15-2023 16:07-0400 Heart rate 80 /min [facility] 06-15-2023 16:07-0400 Respiratory rate 20 /min [facility] 06-15-2023 16:07-0400 SaO2% (BldA) [Mass fraction] 93 % [facility] 06-15-2023 16:00-0400 Body temperature 98.42 [degF] [facility] 06-15-2023 16:00-0400 Diastolic blood pressure 79 mm[Hg] [facility] 06-15-2023 16:00-0400 Heart rate 88 /min [facility] 06-15-2023 16:00-0400 Systolic blood pressure 176 mm[Hg] [facility] 06-15-2023 15:25-0400 Hourly Rounding [facility] 06-15-2023 15:25-0400 Promise to Return [facility] 06-15-2023 12:02-0400 Heart rate 83 /min [facility] 06-15-2023 12:02-0400 Respiratory rate 20 /min [facility] 06-15-2023 12:02-0400 SaO2% (BldA) [Mass fraction] 92 % [facility] 06-15-2023 11:54-0400 SaO2% (BldA) [Mass fraction] 92 % [facility] 06-15-2023 10:15-0400 Diastolic blood pressure 87 mm[Hg] [facility] 06-15-2023 10:15-0400 [facility] blood pressure 114 mm[facility]Hg[facility] 10:15-0400 Systolic blood pressure 168 mm[Hg] [facility] 06-15-2023 10:15-0400 Body temperature 98.06 [degF] Cindy [facility] 06-15-2023 08:30-0400 gluc 172 mg[facility]-15-[facility] 07:35-0400 Diastolic blood pressure 83 mm[Hg] [facility] 07:35-0400 Mean blood pressure 112 mm[Hg] [facility]-15-[facility] 07:35-0400 Systolic blood pressure 168 mm[Hg] [facility] 06-15-2023 07:33-0400 Body temperature 98.06 [degF] [facility] 06-15-2023 00:39-0400 Blood Pressure Location [facility] 06-14-2023 20:00-0400 Body temperature 98.42 [degF] [facility] 06-14-2023 16:12-0400 Blood Pressure Location [facility] 06-14-2023 16:12-0400 Body temperature 97.7 [degF] [facility] 06-14-2023 16:12-0400 Mean blood pressure 123 mm[Hg] [facility] 06-14-2023 08:20-0400 Mean blood pressure 122 mm[Hg] [facility] 06-14-2023 08:19-0400 Body temperature 98.06 [degF] [facility] 06-14-2023 05:50-0400 FIO2 50 % [facility] 06-14-2023 00:50-0400 Mean blood pressure 108 mm[Hg] [facility] 06-13-2023 23:55-0400 FIO2 50 % Cindy RICARDO [facility] 06-13-2023 20:00-0400 gluc 190 mg/dL Cindy RICARDO [facility] 06-13-2023 11:54-0400 FIO2 50 % Cindy RICARDO [facility] 06-13-2023 08:00-0400 Blood Pressure Location [facility] 06-13-2023 08:00-0400 Mean blood pressure 104 mm[Hg] Cindy RICARDO [facility] 06-12-2023 16:38-0400 gluc 296 mg/dL Cindy RICARDO [facility] 06-11-2023 21:00-0400 Heart rate 73 /min [facility] 06-11-2023 20:25-0400 Heart rate 75 /min [facility] [facility] 19:30-0400 Respiratory rate 16 /min [facility]-11[facility]2023 18:30-0400 Respiratory rate 14 /min [facility] 06-11-2023 14:22-0400 SaO2% (BldA) [Mass fraction] 90.8 % Cindy RICARDO [facility] Resp Auto SS 05-22-2023 13:29-0400 Blood Pressure Location Migue STROUD [facility] 05-22-2023 13:29-0400 Diastolic blood pressure 74 mm[Hg] Migue MARLI [facility] 05-22-2023 13:29-0400 Heart rate 74 /min Migue STROUD [facility] 05-22-2023 13:29-0400 SaO2% (BldA) [Mass fraction] 87 % Migue MARLI [facility] 05-22-2023 13:29-0400 Systolic blood pressure 135 mm[Hg] Migue KLINEWOOD [facility] 05-08-2023 10:30-0400 Diastolic blood pressure 81 mm[Hg] Bashar [facility] 05-08-2023 10:30-0400 Mean blood pressure 113 mm[Hg] Bashar [facility] 05-08-2023 10:30-0400 Systolic blood pressure 176 mm[Hg] Bashar [facility] 05-08-2023 10:01-0400 Blood Pressure Location Bashar [facility] 05-08-2023 10:01-0400 Diastolic blood pressure 84 mm[Hg] Bashar [facility] 05-08-2023 10:01-0400 Heart rate 68 /min Bashar [facility] 05-08-2023 10:01-0400 SaO2% (BldA) [Mass fraction] 88 % Bashar [facility] 05-08-2023 10:01-0400 Systolic blood pressure 175 mm[Hg] Bashar [facility] 12-02-2022 11:12-0400 Diastolic blood pressure 86 mm[Hg] Migue MARLI [facility] 12-02-2022 11:12-0400 Mean blood pressure 105 mm[Hg] Migue KLINEWOOD [facility] 12-02-2022 11:12-0400 Systolic blood pressure 142 mm[Hg] Migue KLINEWOOD [facility] 12-02-2022 10:55-0400 Blood Pressure Location Migue MARLI [facility] 12-02-2022 10:55-0400 Diastolic blood pressure 82 mm[Hg] Migue MARLI [facility] 12-02-2022 10:55-0400 Heart rate 74 /min Migue KLINEWOOD [facility] 12-02-2022 10:55-0400 SaO2% (BldA) [Mass fraction] 92 % Migue KLINEWOOD [facility] 12-02-2022 10:55-0400 Systolic blood pressure 169 mm[Hg] Migue MARLI [facility] 09-13-2022 13:21-0500 Diastolic blood pressure 92 mm[Hg] Migue MARLI [facility] 09-13-2022 13:21-0500 Mean blood pressure 115 mm[Hg] Migue MARLI [facility] 09-13-2022 13:21-0500 Systolic blood pressure 160 mm[Hg] Migue MARLI [facility] 09-13-2022 13:16-0500 Blood Pressure Location Migue MARLI [facility] 09-13-2022 13:16-0500 Body temperature 97.7 [degF] Migue MARLI [facility] 09-13-2022 13:16-0500 Diastolic blood pressure 83 mm[Hg] Migue MARLI [facility] 09-13-2022 13:16-0500 Heart rate 78 /min Migue KLINEWOOD [facility] 09-13-2022 13:16-0500 SaO2% (BldA) [Mass fraction] 96 % Migue STROUD [facility] 09-13-2022 13:16-0500 Systolic blood pressure 193 mm[Hg] Migue STROUD [facility] 08-04-2022 17:12-0500 Diastolic blood pressure 88 mm[Hg] Mone [facility] 08-04-2022 17:12-0500 Heart rate 76 /min Mone [facility] 08-04-2022 17:12-0500 Mean blood pressure 102 mm[Hg] Mone [facility] 08-04-2022 17:12-0500 Respiratory rate 18 /min Mone Juan [facility] 08-04-2022 17:12-0500 SaO2% (BldA) [Mass fraction] 100 % Mone Juan [facility] 08-04-2022 17:12-0500 Systolic blood pressure 130 mm[Hg] Mone Juan [facility] 08-04-2022 16:30-0500 Diastolic blood pressure 96 mm[Hg] Mone Juan [facility] 08-04-2022 16:30-0500 Heart rate 74 /min Mone Juan [facility] 08-04-2022 16:30-0500 Mean blood pressure 109 mm[Hg] Mone Juan [facility] 08-04-2022 16:30-0500 Respiratory rate 16 /min Mone Juan [facility] 08-04-2022 16:30-0500 SaO2% (BldA) [Mass fraction] 97 % Mone Martinez [facility] 08-04-2022 16:30-0500 Systolic blood pressure 134 mm[Hg] Mone Martinez [facility] 08-04-2022 15:35-0500 Diastolic blood pressure 103 mm[Hg] Mone Martinez [facility] 08-04-2022 15:35-0500 Heart rate 73 /min Mone Martinez [facility] 08-04-2022 15:35-0500 Respiratory rate 16 /min Mone Martinez [facility] 08-04-2022 15:35-0500 SaO2% (BldA) [Mass fraction] 97 % oMne Martinez [facility] 08-04-2022 15:35-0500 Systolic blood pressure 138 mm[Hg] Mone Martinez [facility] 08-04-2022 13:08-0500 Body temperature 97.88 [degF] Mone Martinez [facility] 08-04-2022 13:08-0500 Heart rate 80 /min Mone Martinez [facility] 03-29-2022 13:04-0400 Blood Pressure Location Migue STROUD [facility] 03-29-2022 13:04-0400 Body temperature 96.98 [degF] Migue STROUD [facility] 03-29-2022 13:04-0400 Diastolic blood pressure 73 mm[Hg] Migue STROUD [facility] 03-29-2022 13:04-0400 Heart rate 72 /min Migue STROUD [facility] 03-29-2022 13:04-0400 SaO2% (BldA) [Mass fraction] 95 % Migue STROUD [facility] 03-29-2022 13:04-0400 Systolic blood pressure 132 mm[Hg] Migue STROUD [facility] 03-09-2022 00:59-0400 Body temperature 98.6 [degF] Jose Miguel [facility] 03-08-2022 23:56-0400 Body temperature 100.58 [degF] Jose Miguel [facility] 03-08-2022 23:56-0400 Diastolic blood pressure 74 mm[Hg] Jose Miguel [facility] 03-08-2022 23:56-0400 Heart rate 95 /min Jose Miguel [facility] 03-08-2022 23:56-0400 Mean blood pressure 98 mm[Hg] Jose Miguel [facility] 03-08-2022 23:56-0400 SaO2% (BldA) [Mass fraction] 90 % Jose Miguel [facility] 03-08-2022 23:56-0400 Systolic blood pressure 146 mm[Hg] Jose Miguel [facility] 03-08-2022 22:56-0400 Body temperature 97.7 [degF] Jose Miguel Phan [facility] 03-08-2022 22:56-0400 Diastolic blood pressure 77 mm[Hg] Jose Miguel [facility] 03-08-2022 22:56-0400 Heart rate 92 /min Jose Miguel [facility] 03-08-2022 22:56-0400 Respiratory rate 15 /min Jose Miguel Phan [facility] 03-08-2022 22:56-0400 SaO2% (BldA) [Mass fraction] 94 % Jose Miguel Phan [facility] 03-08-2022 22:56-0400 Systolic blood pressure 132 mm[Hg] Jose Miguel [facility] 01-11-2022 12:33-0400 Blood Pressure Location Migue STROUD [facility] 01-11-2022 12:33-0400 Body temperature 98.06 [degF] Migue STROUD [facility] 01-11-2022 12:33-0400 Diastolic blood pressure 82 mm[Hg] Migue STROUD [facility] 01-11-2022 12:33-0400 Heart rate 72 /min Migue STROUD [facility] 01-11-2022 12:33-0400 SaO2% (BldA) [Mass fraction] 96 % Migue STROUD [facility] 01-11-2022 12:33-0400 Systolic blood pressure 134 mm[Hg] Migue STROUD [facility] Encounters Encounter Date Encounter Type Care Provider Facility Start: 04-29-2025 End: 04-29-2025 Sandy Brooke MD Work Phone: [facility] Start: 04-29-2025 End: 04-29-2025 Sandy Brooke MD Work Phone: [facility] Start: 03-24-2025 End: 03-24-2025 Telephone encounter Mounika Brooke MD Work Phone: [facility] Comment on above: Care Coordination Start: 03-13-2025 End: 03-13-2025 Sandy Brooke MD Work Phone: [facility] Start: 03-13-2025 End: 03-13-2025 Sandy Brooke MD Work Phone: [facility] Start: 03-13-2025 End: 03-13-2025 Transitional care manage srvc 7 day discharge Mounika Brooke MD Work Phone: [facility] Comment on above: Hospital discharge f ollow-up (Primary Dx); Type 2 diabetes mellitus with hyperglycemia, with long-term current use of insulin (HCC); Hyperosmolar hyperglycemic state (HHS) (HCC); Muscle cramps; Long-term insulin use (HCC); Difficulty walking; Essential (primary) hypertension ; Morbid obesity ([facility]-HCC); BMI 38.0-38.9,adult Start: 03-13-2025 End: 03-13-2025 ambulatory MOUNIKA BROOKE Not Available Start: 03-05-2025 End: 03-07-2025 Evaluation and management of inpatient Jigna Suarez Facility:[facility] Start: 03-05-2025 Emergency department patient visit Maria Luisa Steiner Facility:[facility] Start: 02-05-2025 End: 02-05-2025 Telephone encounter Aggie Toribio [facility] Comment on above: Care Coordination Start: 02-05-2025 End: 02-05-2025 ambulatory MOUNIKA BROOKE Not Available Start: 02-05-2025 End: 02-05-2025 Office outpatient visit 25 minutes Mounika Brooke MD Work Phone: [facility] Comment on above: Chronic hypoxemic re spiratory failure (HCC) (Primary Dx); Leg weakness, bilateral; Essential (primary) hypertension ; Difficulty walking; Type 2 diabetes mellitus with hyperglycemia, with long-term current use of insulin (HCC); Long-term insulin use (HCC); Morbid obesity (CMS-HCC); BMI 36.0-36.9,adult Start: 01-22-2025 End: 01-22-2025 Refill Brittani WILLETT Comment on above: Anxiousness (Primary Dx) Start: 12-26-2024 End: 12-26-2024 ambulatory Maria Luisa Steiner Facility:[facility] Start: 12-26-2024 End: 12-26-2024 Office outpatient visit 15 minutes Mounika Brooke MD Work Phone: [facility] Comment on above: Muscle cramps (Prima ry Dx); Varicose veins of both lower extremities, unspecified whether complicated; Type 2 diabetes mellitus with hyperglycemia, with long-term current use of insulin (CMS/HCC); Essential (primary) hypertension (CMS/HCC) Start: 12-25-2024 End: 12-25-2024 Office outpatient visit 25 minutes Kayla Sweeney MD Work Phone: [facility] Comment on above: Type 2 diabetes perla itus with hyperglycemia, with long-term current use of insulin (CMS/HCC) (Primary Dx); Insulin long-term use (CMS/HCC); Vitamin D deficiency; Encounter for dietary consultation; Hyperlipemia, mixed (CMS/HCC); Primary hypertension (CMS/HCC) Start: 12-24-2024 End: 05-06-2025 Bamboo flowsheet Kayla Sweeney MD Work Phone: [facility] Start: 12-24-2024 End: 12-24-2024 Bamboo flowsheet Kayla Sweeney MD Work Phone: [facility] Start: 12-22-2024 End: 12-22-2024 Emergency department patient visit Dwight Shaffer Facility:[facility] Start: 12-20-2024 End: 12-21-2024 ambulatory Toni Gutierrez Facility:[facility] Start: 12-20-2024 Emergency department patient visit Nicole Myers Facility:[facility] Start: 12-20-2024 End: 12-21-2024 Observation Toni Guteirrez [facility] Start: 12-19-2024 End: 12-19-2024 Emergency department patient visit Corky Luo Facility:[facility] Start: 12-18-2024 End: 12-18-2024 Bamboo flowsheet Mone [...] 12-02-2024 Emergency department patient visit Nicole Myers [facility] Start: 09-04-2024 End: 09-04-2024 ambulatory Taz THOMAS Facility:[facility] Start: 09-04-2024 End: 09-04-2024 Patient encounter procedure Taz THOMAS [facility] Start: 09-04-2024 End: 09-04-2024 Office outpatient visit 25 minutes Kayla Sweeney MD Work Phone: [facility] Comment on above: Type 2 diabetes perla itus with hyperglycemia, with long-term current use of insulin (CMS/HCC) (Primary Dx); Insulin long-term use (CMS/[facility]); Vitamin D deficiency; Encounter for dietary consultation; Hyperlipemia, mixed ([facility]); Primary hypertension ([facility]/HCC) Start: 09-04-2024 End: 09-04-2024 Bamboo flowsheet Kayla Sweeney MD Work Phone: [facility] Start: 09-04-2024 End: 09-04-2024 Bamboo flowsheet Kayla Sweeney MD Work Phone: [facility] Start: 09-04-2024 End: 09-04-2024 ambulatory KAYLA SWEENEY Not Available Start: 08-06-2024 End: 08-06-2024 Telephone encounter Mounika Brooke MD Work Phone: [facility] Comment on above: Referral Start: 07-22-2024 End: 07-22-2024 ambulatory PERLITA MEEKS Not Available Start: 07-22-2024 End: 07-22-2024 Follow-up encounter Perlita Meeks MD Work Phone: [facility] Comment on above: Follow-up Start: 07-22-2024 End: 07-22-2024 Bamboo flowsheet Perlita Meeks MD Work Phone: [facility] Start: 07-22-2024 End: 07-22-2024 Bamboo flowsheet Perlita Meeks MD Work Phone: [facility] Start: 07-15-2024 End: 07-15-2024 ambulatory KAYLA SWEENEY Not Available Start: 07-15-2024 End: 07-15-2024 Office outpatient visit 25 minutes Kayla Sweeney MD Work Phone: [facility] Comment on above: Type 2 diabetes [...] adult (CMS/HCC) Start: 07-11-2024 End: 07-11-2024 Bamboo flowsheet Mounika Brooke MD Work Phone: [facility] Start: 07-11-2024 End: 07-11-2024 Bamboo flowsheet Mounika Brooke MD Work Phone: [...] 07-09-2024 Emergency department patient visit Nicole Myers [facility] Start: 07-03-2024 End: 07-03-2024 Bamboo jaxon Brooke MD Work Phone: [facility] Start: 07-03-2024 End: 07-03-2024 Sandy Brooke MD Work Phone: [facility] [...] (CMS/HCC); Morbid obesity (CMS/HCC); BMI 40.0-44.9, adult (CMS/HCC) Start: 07-03-2024 End: 07-03-2024 ambulatory MOUNIKA BROOKE Not Available Start: 06-24-2024 End: 06-24-2024 Telephone encounter Jennifer ROWAN Work Phone: [facility] Start: 06-23-2024 End: 06-23-2024 Emergency department patient visit Alejandro Reddygris [facility] Start: 06-21-2024 End: 06-21-2024 ambulatory Jennifer SHORT Facility:[facility] Start: 06-21-2024 End: 06-21-2024 Patient encounter procedure Jennifer SHORT [facility] Start: 06-21-2024 End: 06-21-2024 Bamboo flowsheet Jennifer Short PA Work Phone: [facility] Start: 06-21-2024 End: 06-21-2024 Bamboo flowsheet Jennifer Short PA Work Phone: [facility] Start: 06-21-2024 End: 06-21-2024 Office outpatient visit 25 minutes Jennifer Short PA Work Phone: [facility] Comment on above: Type 2 diabetes perla itus with hyperglycemia, with long-term current use of insulin ([facility]) (Primary Dx); Chronic cough; Chest wall pain; [...] encounter procedure Mounika Brooke MD Work Phone: [facility] Comment on above: Encounter for Medica re annual wellness exam (Primary Dx); Type 2 diabetes mellitus with hyperglycemia, without long-term current use of insulin ([facility]); RLS (restless legs syndrome); Chronic hypoxemic respiratory failure ([facility]/HCC); Stage 3b chronic kidney disease (HCC) ([facility]); Oxygen dependent; Morbid obesity ([facility]); BMI 40.0-44.9, adult ([facility]); Other diabetic neurological complication associated with type 2 diabetes mellitus ([facility]); TC (obstructive sleep apnea); Restless leg syndrome; Acute on chronic respiratory failure with hypoxia and hypercapnia ([facility]); Obesity hypoventilation syndrome ([facility]); Hypertension, unspecified type ([facility]); Varicose veins of both lower extremities, unspecified whether complicated; Gastroesophageal reflux disease, unspecified whether esophagitis present; 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 ([facility]); Mixed hyperlipidemia ([facility]); Long-term insulin use ([facility]) Start: 04-29-2024 End: 04-30-2024 Telephone encounter Mounika Brooke MD Work Phone: [facility] Comment on above: Care Coordination Start: [...] 45 minutes Perlita Meeks MD Work Phone: [facility] Comment on above: 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 with type 1 diabetes mellitus, unspecified proliferative retinopathy type (CMS/HCC) (Primary Dx); 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 1 diabetes mellitus (CMS/HCC) Start: 04-15-2024 End: 04-15-2024 ambulatory PERLITA MEEKS Not Available Start: 04-15-2024 End: 04-15-2024 Bamboo flowsheet Perlita Meeks MD Work Phone: [facility] Start: 04-15-2024 End: 04-15-2024 Bamboo flowsheet Perlita Meeks MD Work Phone: [facility] Start: 03-11-2024 End: 03-11-2024 ambulatory Taz THOMAS Facility:[facility] Start: 03-11-2024 End: 03-11-2024 Patient encounter procedure Taz THOMAS [facility] Start: 03-06-2024 End: 03-06-2024 ambulatory Sukh R Dolce Facility:[facility] Start: 03-06-2024 End: 03-06-2024 Patient encounter procedure Sukh R Dolce [facility] Start: 02-28-2024 End: 02-28-2024 ambulatory Sukh R Dolce Facility:[facility] Start: 02-28-2024 End: 02-28-2024 Patient encounter procedure Sukh R Dolce [facility] Start: 02-28-2024 End: 02-28-2024 ambulatory Taz THOMAS Facility:[facility] Start: 02-28-2024 End: 02-28-2024 Patient encounter procedure Taz THOMAS [facility] Start: 02-15-2024 End: 02-15-2024 ambulatory Shannon J Galea Facility:[facility] Start: 02-15-2024 End: 02-15-2024 Patient encounter procedure Shannon Lowery [facility] Start: 02-14-2024 End: 02-14-2024 ambulatory Taz Jarad THOMAS Facility:[facility] Start: 02-14-2024 End: 02-14-2024 Patient encounter procedure Taz Abraham MARTHA [facility] Start: 02-09-2024 End: 02-09-2024 ambulatory Gisselle X Orzech Facility:[facility] Start: 02-09-2024 End: 02-09-2024 Patient encounter procedure Gisselle X Orzech [facility] Start: 02-05-2024 End: 02-05-2024 ambulatory Taz Abraham MARTHA Facility:[facility] Start: 02-05-2024 End: 02-05-2024 Patient encounter procedure Taz Abraham MARTHA [facility] Start: 01-31-2024 End: 01-31-2024 ambulatory Sukh Harrington Facility:[facility] Start: 01-31-2024 End: 01-31-2024 Patient encounter procedure Sukh Harrington [facility] Start: 01-23-2024 End: 01-23-2024 ambulatory Smooth Harrington Facility:[facility] Start: 01-23-2024 End: 01-23-2024 Patient encounter procedure Smooth Harrington [facility] Start: 01-17-2024 End: 01-18-2024 Pre-admission assessment Smooth Harrington [facility] Start: 01-15-2024 End: 01-15-2024 Emergency department patient visit Nicole Myers [facility] Start: 01-12-2024 End: 01-12-2024 ambulatory LIBERTY PATRICK Facility:[facility] Start: 01-12-2024 End: 01-12-2024 Patient encounter procedure LIBERTY PATRICK [facility] Start: 01-02-2024 End: 01-02-2024 ambulatory Smooth Annce Facility:[facility] Start: 01-02-2024 End: 01-02-2024 Patient encounter procedure Smooth Annbert [facility] Start: 12-26-2023 End: 12-26-2023 ambulatory Smooth D Dolce Facility:[facility] Start: 12-26-2023 End: 12-26-2023 Patient encounter procedure Smooth D Marissace [facility] Start: 12-19-2023 End: 12-19-2023 ambulatory Smooth D Dolce Facility:[facility] Start: 12-19-2023 End: 12-19-2023 Patient encounter procedure Smooth Annbert [facility] Start: 12-15-2023 End: 12-15-2023 ambulatory Taz THOMAS Facility:[facility] Start: 12-15-2023 End: 12-15-2023 Patient encounter procedure Taz THOMAS [facility] Start: 12-12-2023 End: 12-12-2023 ambulatory Smooth D Dolce Facility:[facility] Start: 12-12-2023 End: 12-12-2023 Patient encounter procedure Smooth Caro Annce [facility] Start: 11-23-2023 Patient encounter procedure Esau Truong APRN.CNS Work Phone: [facility] Start: 11-23-2023 Progress Note Esau Truong LOAN TELLER.LANDSCAPE NURSERYMAN Work Phone: [facility] Start: 11-20-2023 End: 11-20-2023 Patient encounter procedure Taz THOMAS [facility] Start: 11-20-2023 Progress Note Alvaro Gleasonn Work Phone: [employer] Start: 11-20-2023 End: 11-20-2023 ambulatory Taz THOMAS Facility:[facility] Start: 11-12-2023 Non-patient / Non-visit MD Jermaine Brooke Work Phone: [facility] Work Phone: Start: 11-11-2023 Non-patient / Non-visit MD Jermaine Brooke Work Phone: [facility] Work Phone: Start: 11-11-2023 End: 11-17-2023 Evaluation and management of inpatient MD Mounika Brooke Work Phone: [facility] [place] [facility] Work Phone: Start: 11-11-2023 End: 11-11-2023 Emergency department patient visit Alejandro Silva [facility] Start: 11-01-2023 End: 11-01-2023 ambulatory Taz THOMAS Facility:[facility] Start: 11-01-2023 End: 11-01-2023 Patient encounter procedure Taz THOMAS [facility] Start: 10-31-2023 Telephone encounter Mounika christianson MD Work Phone: NOC Comment on above: Follow Up Phone Call (Post Discharge F/U - attempt made. No answer.) Start: 10-30-2023 End: 10-30-2023 Emergency department patient visit Sonnyalfredpro Edin Beck [facility] Start: 10-23-2023 End: 10-28-2023 Evaluation and management of inpatient PIPPA DONAHUE Facility:[facility] Start: 10-18-2023 End: 10-18-2023 ambulatory Taz THOMAS Facility:[facility] Start: 10-18-2023 End: 10-18-2023 Patient encounter procedure Taz THOMAS [facility] Start: 10-15-2023 End: 10-15-2023 Emergency department patient visit Mone Martinez [facility] Start: 10-13-2023 End: 10-13-2023 ambulatory MD Mounika Brooke Work Phone: [facility] Work Phone: Start: 10-13-2023 End: 10-13-2023 Patient encounter procedure MD Mounika Brooke Work Phone: [facility] [place] Work Phone: Start: 10-09-2023 Non-patient / Non-visit MD Jermaine Brooke Work Phone: [facility] Work Phone: Start: 10-08-2023 Non-patient / Non-visit MD Jermaine Brooke Work Phone: [facility] Work Phone: Start: 10-07-2023 Non-patient / Non-visit MD Jermaine Brooke Work Phone: [facility] Work Phone: Start: 10-06-2023 End: 10-12-2023 Evaluation and management of inpatient MD Mounika Brooke Work Phone: [facility] [place] [facility] Work Phone: Start: 10-05-2023 End: 10-05-2023 ambulatory Gisselle X Orzech Facility:[facility] Start: 10-05-2023 End: 10-05-2023 Patient encounter procedure Gisselle X Orzech [facility] Start: 10-04-2023 End: 10-04-2023 ambulatory Sukh Harrington Facility:[facility] Start: 10-04-2023 End: 10-04-2023 Patient encounter procedure Sukh Harrington [facility] Start: 10-03-2023 ambulatory Smooth Marissabert Facility:[facility] Start: 10-02-2023 End: 12-31-2023 ambulatory Nicole Thompson Facility:[facility] Start: 10-02-2023 End: 12-31-2023 Recurring Nicole Thompson [facility] Start: 09-26-2023 End: 09-26-2023 ambulatory Gisselle X Orzech Facility:[facility] Start: 09-25-2023 Bamboo flowskavon christiansen MD Work Phone: [facility] Start: 09-25-2023 Bambojeremy flowskavon christiansen MD Work Phone: [facility] Start: 09-24-2023 End: 09-24-2023 Emergency department patient visit Jose Miguel Phan [facility] Start: 09-21-2023 Chart abstracting Mounika christianson MD Work Phone: [facility] Start: 09-18-2023 End: 09-12-2023 Pre-admission assessment Smooth Harrington [facility] Start: 09-17-2023 End: 09-17-2023 Emergency department patient visit Alejandro Silva [facility] Start: 09-12-2023 End: 09-16-2023 Evaluation and management of inpatient XXXX [facility] Cardio Facility:[facility] Start: 09-05-2023 End: 09-05-2023 ambulatory Smooth Harrington Facility:[facility] Start: 09-05-2023 End: 09-05-2023 Patient encounter procedure Smooth Harrington [facility] Start: 08-30-2023 End: 08-30-2023 Patient encounter procedure Sukh Harrington [facility] Start: 08-24-2023 End: 08-24-2023 Patient encounter procedure Migue STROUD [facility] Start: 08-16-2023 End: 08-16-2023 Patient encounter procedure Sukh Harrington [facility] Start: 08-06-2023 End: 08-06-2023 Emergency department [facility] Start: 08-02-2023 End: 08-02-2023 Patient encounter procedure Sukh Harrington [facility] Start: 07-19-2023 End: 07-19-2023 Patient encounter procedure Sukh Harrington [facility] Start: 06-28-2023 End: 06-28-2023 Patient encounter procedure Sukh Harrington [facility] Start: 06-26-2023 End: 06-26-2023 Patient encounter procedure Migue STROUD [facility] Start: 06-19-2023 End: 06-21-2023 Evaluation and management of inpatient DO Reid Brooke Work Phone: [facility] [place] [facility] Work Phone: Start: 06-11-2023 End: 06-15-2023 Evaluation and management of inpatient Cindy RICARDO [facility] Start: 06-07-2023 End: 06-07-2023 Patient encounter procedure Sukh Harrington [facility] Start: 05-24-2023 End: 05-24-2023 Off-Site Miguecora STROUD [facility] Start: 05-22-2023 End: 05-22-2023 Lab Drop off Migue STROUD [facility] Start: 05-22-2023 End: 05-22-2023 Patient encounter procedure Migue STROUD [facility] Start: 05-08-2023 End: 05-08-2023 Patient encounter procedure Bashar X Boylston [facility] Start: 05-02-2023 End: 05-03-2023 Pre-admission assessment Sukh Harrington [facility] Start: 05-01-2023 End: 05-01-2023 Patient encounter procedure Sukh Harrington [facility] Start: 04-26-2023 End: 04-26-2023 Patient encounter procedure Sukh Harrington [facility] Start: 04-25-2023 End: 04-25-2023 Patient encounter procedure Smooth Harrington [facility] Start: 04-19-2023 End: 04-19-2023 Patient encounter procedure Sukh Harrington [facility] Start: 04-03-2023 End: 04-03-2023 Patient encounter procedure Miguecora STROUD [facility] Start: 12-26-2022 End: 12-26-2022 Patient encounter procedure Miguecora STROUD [facility] Start: 12-02-2022 End: 12-02-2022 Patient encounter procedure Migue STROUD [facility] Start: 09-21-2022 End: 10-18-2022 Off-Site Miguecora STROUD [facility] Start: 09-13-2022 End: 09-13-2022 Patient encounter procedure Migue STROUD [facility] Start: 08-21-2022 End: 09-20-2022 Off-Site Miguecora STROUD [facility] Start: 08-04-2022 End: 08-04-2022 Emergency department patient visit Mone Martinez [facility] Start: 03-29-2022 End: 03-29-2022 Patient encounter procedure Migue STROUD [facility] Start: 03-21-2022 End: 04-20-2022 Off-Site Migue STROUD [facility] Start: 03-08-2022 End: 03-09-2022 Emergency department patient visit Jose Miguel Phan [facility] Start: 01-11-2022 End: 01-11-2022 Patient encounter procedure Migue STROUD [facility] Start: 12-28-2021 End: 12-28-2021 Off-Site Migue STROUD [facility] Procedures Date Procedure Procedure Detail Performing [...] Start: 10-06-2023 Plain chest X-ray MD Bipin Brooke Work Phone: Start: 10-06-2023 Blood culture for bacteria, including anaerobic screen MD Mounika Brooke Work Phone: Start: 10-06-2023 SARS-CoV-2, Influenz a & RSV (PCR) MD Mounika Brooke Work Phone: Start: 06-18-2023 Plain chest X-ray DO Kamila Kirby Start: 06-18-2023 SARS-CoV-2, Influenz a & RSV (PCR) DO Reid Logangles Work Phone: Start: 10-24-2017 Cataract extraction and insertion of intraocular lens Migue STROUD Comment on above: LEFT Start: 09-19-2017 Cataract extraction and insertion of intraocular lens Migue MARLI Comment on above: right Start: 05-31-2017 Incision [...] of foot Acquired absence of left foot (CMS/[facility]) Mounika Brooke MD Work Phone: Umbilical Hernia Repair Avtar STROUD Plan of Treatment Date Care Activity Detail Author Start: 03-26-2026 Urine screening for protein Diabetes: Urine Protein Screening [facility] Start: 03-13-2026 Urine screening for protein Diabetes: Urine Protein Screening [facility] Start: 07-22-2025 Glaucoma screening Diabetes: R etinopathy Screening [facility] Start: 05-01-2025 End: 05-01-2025 Patient encounter procedure 05/01/2025 8:15 AM EDT Office Visit [facility] [address] [place] [address] Perlita Meeks MD [address] [place] [address] [facility] Start: 04-29-2025 Medicare Annual Well ness (AWV) Medicare Annual Wellness (AWV) [facility] Start: 04-29-2025 End: 04-29-2025 Patient encounter procedure 04/29/2025 11:00 AM EDT Office Visit [facility] [address] [place] [phone] Mounika Brooke MD [address] [place] [address] [facility] Comment on above: Arrived Start: 04-23-2025 Glaucoma screening Diabetes: R etinopathy Screening [facility] Start: 04-21-2025 Influenza vaccination Influenza Vacc ine (#1) [facility] Start: 04-15-2025 Glaucoma screening Diabetes: R etinopathy Screening [facility] Start: 03-13-2025 End: 03-13-2025 Patient encounter procedure 03/13/2025 12:20 PM EDT Office Visit [facility] [address] [place] [address] Mounika Brooke MD [address] [place] [address] [facility]rived [facility] Comment on above: Arrived Start: 03-11-2025 Urine screening for protein Diabetes: Urine Protein Screening [facility] Start: 02-05-2025 End: 02-05-2025 Patient encounter procedure 02/05/2025 12:20 PM EDT Office Visit [facility] [address] [place] [address] Mounika Brooke MD [address] [place] [address] [facility] Start: 12-31-2024 End: 12-31-2024 Patient encounter procedure 12/31/2024 2:20 PM EDT Office Visit [facility] [address] [place] [address] Kayla Sweeney MD [address] [place] [address] [facility] Start: 12-26-2024 End: 12-26-2024 Patient encounter procedure 12/26/2024 3:20 PM EDT Office Visit [facility] [address] [place] [phone] Mounika Brooke MD [address] [place] [address] [facility] Start: 12-26-2024 End: 12-26-2025 CBC W Auto Differential panel - Blood CBC and differential Lab Routine Muscle cramps Expected: 12/26/2024 (Approximate), Expires: 12/26/2025 [facility] Work Phone: Comment on above: Expected: 12/26/2024 (Approximate), Expires: 12/26/2025 Start: 12-26-2024 End: 12-26-2025 Comprehensive metabolic 2000 panel - Serum or Plasma Comprehensive metabolic panel Lab Routine Muscle cramps Expected: 12/26/2024 (Approximate), Expires: 12/26/2025 [facility] Comment on above: Expected: 12/26/2024 (Approximate), Expires: 12/26/2025 Start: 12-26-2024 End: 12-26-2025 Magnesium [Mass/volume] in Serum or Plasma Magnesium Lab Routine Muscle cramps Expected: 12/26/2024 (Approximate), Expires: 12/26/2025 [facility] Comment on above: Expected: 12/26/2024 (Approximate), Expires: 12/26/2025 Start: 12-04-2024 End: 12-04-2024 Patient encounter procedure 12/04/2024 2:40 PM EDT Office Visit [facility] [address] [place] [address] Kayla Sweeney MD [address] [place] [address] [facility] Start: 12-03-2024 Hemoglobin A1c measurement Diabetes: Hemoglobin A1C [facility] Start: 11-21-2024 End: 11-21-2024 Patient encounter procedure 11/21/2024 1:30 PM EDT Office Visit [facility] [address] [place] [phone] Perlita Meeks MD [address] [place] [address] [facility] Start: 10-27-2024 Complete blood count Hemoglobin/Martinez tocrit [facility] Start: 10-27-2024 Creatinine measurement Serum Creatin ine [facility] Start: 10-24-2024 Hepatitis B surface antibody level LDL Cholesterol [facility] Start: 09-21-2024 Hemoglobin A1c measurement Diabetes: Hemoglobin A1C [facility] Start: 09-04-2024 End: 09-04-2024 Patient encounter procedure [facility] Comment on above: Type 2 diabetes perla itus with hyperglycemia, with long-term current use of insulin ([facility]) Start: 09-04-2024 End: 09-04-2025 25-hydroxyvitamin D3 [Mass/volume] in Serum or Plasma Vitamin D 25 hydroxy Total Lab Routine Type 2 diabetes mellitus with hyperglycemia, with long-term current use of insulin ([facility]) Expected: 09/04/2024 (Approximate), Expires: 09/04/2025 [facility] Comment on above: Expected: 09/04/2024 (Approximate), Expires: 09/04/2025 Start: 09-04-2024 End: 09-04-2025 C-peptide C-peptide Lab Routine Type 2 diabetes mellitus with hyperglycemia, with long-term current use of insulin ([facility]) Expected: 09/04/2024 (Approximate), Expires: 09/04/2025 [facility] Work Phone: Comment on above: Expected: 09/04/2024 (Approximate), Expires: 09/04/2025 Start: 09-04-2024 End: 09-04-2025 Lipid 1996 panel - Serum or Plasma Lipid panel Lab Routine Type 2 diabetes mellitus with hyperglycemia, with long-term current use of insulin ([facility]) Expected: 09/04/2024 (Approximate), Expires: 09/04/2025 [facility] Comment on above: Expected: 09/04/2024 (Approximate), Expires: 09/04/2025 Start: 09-04-2024 End: 09-04-2025 Microalbumin/Creatinine panel in random Urine Microalbumin / creatinine urine ratio Lab Routine Type 2 diabetes mellitus with hyperglycemia, with long-term current use of insulin ([facility]) Expected: 09/04/2024 (Approximate), Expires: 09/04/2025 [facility] Comment on above: Expected: 09/04/2024 (Approximate), Expires: 09/04/2025 Start: 09-04-2024 End: 09-04-2025 Renal function panel Renal function panel Lab Routine Type 2 diabetes mellitus with hyperglycemia, with long-term current use of insulin ([facility]) Expected: 09/04/2024 (Approximate), Expires: 09/04/2025 [facility] Comment on above: Expected: 09/04/2024 (Approximate), Expires: 09/04/2025 Start: 08-09-2024 Urine screening for protein Diabetes: Urine Protein Screening [facility] Start: 07-22-2024 End: 07-22-2024 Clinical Support 07/22/2024 2:15 PM EST Clinical Support [facility] [address] [place] [phone] Perlita Meeks MD [address] [place] [address] [facility] Start: 07-15-2024 End: 07-15-2024 Chart abstracting 07/15/2024 Abstract [facility] [address] [place] [phone] Kayla Sweeney MD [address] [place] [address] [facility] Start: 07-15-2024 End: 07-15-2024 Patient encounter procedure 07/15/2024 1:40 PM EST Office Visit [facility] [address] [place] [address] Kayla Sweeney MD [address] [place] [address] [facility] Start: 07-11-2024 End: 07-11-2024 Clinical Support [facility] Comment on above: Arrived Start: 06-27-2024 End: 06-27-2024 Clinical Support 06/27/2024 2:15 PM EST Clinical Support [facility] [address] [place] [address] Perlita Meeks MD [address] [place] [address] [facility] Start: 06-21-2024 End: 06-21-2025 XR Chest 2 Views XR chest 2 views Imaging Routine Chronic cough Chest wall pain Expected: 06/21/2024, Expires: 06/21/2025 [facility] Work Phone: Comment on above: Expected: 06/21/2024 , Expires: 06/21/2025 Start: 06-21-2024 End: 06-21-2024 Patient encounter procedure 06/21/2024 1:30 PM EDT Office Visit [facility]ON[facility] [address] [place] [phone] Jennifer Short PA [address] [place] [address] Arrived [facility] Comment on above: Arrived Start: 05-23-2024 End: 05-23-2024 Clinical Support 05/23/2024 10:15 AM EDT Clinical Support [facility] [address] [place] [phone] Perlita Meeks MD [address] [place] [address] [facility] Start: 05-22-2024 End: 05-22-2024 Clinical Support 05/22/2024 2:00 PM EDT Clinical Support [facility] [address] [place] [address] Perlita Meeks MD [address] [place] [address] Arrived [facility] Comment on above: Arrived Start: 04-29-2024 End: 04-29-2024 Patient encounter procedure 04/29/2024 2:00 PM EDT Office Visit [facility] [address] [place] [phone] Mounika Brooke MD [address] [place] [address] Arrived [facility] Comment on above: Arrived Start: 04-23-2024 End: 04-23-2024 Clinical Support 04/23/2024 10:45 AM EDT Clinical Support [facility] [address] [place] [address] Perlita Meeks MD [address] [place] [address] Arrived [facility] Comment on above: Arrived Start: 04-21-2024 Influenza vaccination Influenza Vacc ine (#1) [facility] Start: 04-15-2024 End: 04-15-2024 Patient encounter procedure 04/15/2024 2:30 PM EDT Office Visit [facility] [address] [place] [address] Perlita Meeks MD [address] [place] [address] Arrived [facility] Comment on above: Arrived Start: 01-24-2024 Hemoglobin A1c measurement [facility] Start: 11-17-2023 [facility] Start: 11-11-2023 Hospital admission [facility] Start: 11-11-2023 [facility] Start: 11-11-2023 Referral to inside sales recruiter [facility] Start: 10-12-2023 [facility] Start: 10-08-2023 Referral to inside sales recruiter [facility] Start: 10-07-2023 Hospital admission [facility] Start: 10-07-2023 [facility] Start: 10-06-2023 Plain chest X-ray XR chest 1V portab [facility] Start: 10-06-2023 XR Chest Single view [facility] Start: 10-06-2023 Bacteria identified in Blood by Culture [facility] Start: 09-25-2023 End: 09-25-2023 Patient encounter procedure [facility] Comment on above: Arrived Start: 08-21-2023 Behavioral Health Screening Behavioral Health Screening [facility] Start: 08-21-2023 Depression Assessment Depression Ass essment [facility] Start: 06-23-2023 Blood chemistry [facility] Start: 06-23-2023 [facility] Start: 06-22-2023 Blood chemistry [facility] Start: 06-22-2023 [facility] Start: 06-21-2023 Blood chemistry [facility] Start: 06-21-2023 End: 06-21-2023 [facility] Start: 06-20-2023 Consultation [facility] Start: 06-20-2023 Blood chemistry [facility] Start: 06-20-2023 [facility] Start: 06-19-2023 Administration of prophylactic treatment [facility] Start: 06-19-2023 Blood chemistry [facility] Start: 06-19-2023 [facility] Start: 06-19-2023 Hospital admission [facility] Start: 06-19-2023 [facility] Start: 06-18-2023 Plain chest X-ray XR chest 1V portab [facility] Start: 06-18-2023 XR Chest Single view [facility] Start: 04-21-2023 Covid-19 Vaccine ( season) Covid-19 Vaccine ( season) [facility] Start: 08-07-2019 Pneumococcal vaccination Pneum ococcal Vaccine (2 of 2 - PCV) [facility] Start: 08-07-2019 Pneumococcal Vaccine : 65+ Years (2 of 2 - PCV) Pneumococcal Vaccine: 65+ Years (2 of 2 - PCV) [facility] Start: 2019 RSV Vaccine (1 - 1-d ose 60+ series) RSV Vaccine (1 - 1-dose 60+ series) [facility] Start: 2014 Prostate specific antigen measurement Prostate Cancer Screening Discussion [facility] Start: 2009 Shingrix Vaccine (1 of 2) Shingrix Vaccine (1 of 2) [facility] Start: 01-08-2004 Screening for malign ant neoplasm of colon [facility] Start: 1978 Urine microalbumin profile DTaP,Tdap,Td Vaccine (1 - Tdap) [facility] Start: 1977 Annual PCP Team Release And Technical Records Clerk loida Disease Visit Annual PCP Team Chronic Disease Visit [facility] Start: 1977 BP Controlled (<130/80) BP Con trolled (<130/80) [facility] Start: 1977 Hepatitis C screening Hepatitis C Sc reening [facility] Start: 1977 HIV screening HIV Screening [facility] Start: 1969 Diabetic foot examination Diabetic Foot Exam [facility] Start: 1969 Glaucoma screening [facility] Start: 1969 Hepatitis B screening Urine Albumin:Creatinine Ratio [facility] Start: 1959 Hemoglobin A1c measurement Diabetes: Hemoglobin A1C [facility] Start: 1959 Medicare Annual Well ness (AWV) Medicare Annual Wellness (AWV) [facility] Start: 1959 Screening for malign ant neoplasm of colon [facility] Anion gap measurement [facility] Basophils [#/volume] in Blood by Automated count [facility] Basophils/100 leukoc ytes in Blood by Automated count [facility] Eosinophils [#/volum e] in Blood [facility] Eosinophils/100 leukocytes in Blood by Automated count [facility] Erythrocyte distribu tion width [Ratio] by Automated count [facility] Erythrocytes [#/volu me] in Blood [facility] Hematocrit [Volume Fraction] of Blood [facility] Hemoglobin [Mass/vol ume] in Blood [facility] Leukocytes [#/volume ] corrected for nucleated erythrocytes in Blood by Automated coun [facility] Leukocytes [#/volume ] in Blood [facility] Lymphocytes [#/volum e] in Blood by Automated count [facility] Lymphocytes/100 leukocytes in Blood by Automated count [facility] MCH [Entitic mass] b y Automated count [facility] MCHC [Mass/volume] b y Automated count [facility] MCV [Entitic volume] by Automated count [facility] Monocytes [#/volume] in Blood by Automated count [facility] Monocytes/100 leukoc ytes in Blood by Automated count [facility] Neutrophils [#/volum e] in Blood by Automated count [facility] Neutrophils/100 leukocytes in Blood by Automated count [facility] Nucleated erythrocyt es [Presence] in Blood by Automated count [facility] Patient Education [facility] Work Phone: Patient referral [facility] Work Phone: Platelet mean volume [Entitic volume] in Blood by Automated count [facility] Platelets [#/volume[facility] Immunization Date Immunization Notes Care Provider Fa [facility] 12-04-2024 Pneumococcal Conjuga te PCV 20 Mounika Brooke MD Work Phone: [facility] 12-04-2024 Seasonal, trivalent, recombinant, injectable influenza vaccine, preservative free Mounika Brooke MD Work Phone: [facility] 12-04-2024 influenza virus vacc ine, unspecified formulation Mounika Brooke MD Work Phone: [facility] 11-24-2023 tuberculin skin test ; purified protein derivative solution, intradermal Mounika Brooke MD Work Phone: [facility] 11-17-2023 tuberculin skin test ; purified protein derivative solution, intradermal Mounika Brooke MD Work Phone: [facility] 05-22-2023 influenza, injectabl e, quadrivalent, preservative free Migue KLINEWOOD [facility] 05-22-2023 influenza virus vacc ine, unspecified formulation Perlita Meeks MD Work Phone: [facility] 06-17-2022 COVID-19, mRNA, LNP- S, bivalent booster, PF, 30 mcg/0.3 mL dose Mone Martinez [facility] 06-17-2022 influenza, injectabl e, quadrivalent, preservative free Mone Martinez [facility] 06-17-2022 SARS-CoV-2, Unspecified Zahra Brooke MD Work Phone: [facility] 07-27-2021 COVID-19, mRNA, LNP- S, PF, 100 mcg or 50 mcg dose Migue MARLI [facility] 07-20-2021 influenza, injectabl e, quadrivalent, preservative free Migue STROUD [facility] 12-03-2020 SARS-CoV-2 (COVID-19 ) mRNA-1273 vaccine Migue MARILLA [facility] 11-02-2020 SARS-CoV-2 (COVID-19 ) mRNA-1273 vaccine Migue MARILLA [facility] 06-04-2019 influenza, injectabl e, quadrivalent, contains preservative Migue STROUD [facility] 08-07-2018 influenza virus vacc ine, unspecified formulation Jose Miguel Phan [facility] 08-07-2018 influenza, injectabl e, quadrivalent, contains preservative Mounika Brooke MD Work Phone: [facility] 08-07-2018 pneumococcal polysaccharide vaccine, 23 valent Migue STROUD [facility] 11-24-2015 pneumococcal polysaccharide vaccine, 23 valent Jose Miguel Phan [facility] Payers Date Payer Category Payer Self-pay [id number] 2024 Medicare (Managed Care) 1.2. [id number] 2024 Private Health Insurance [id number] 2023 Medicare [id number] 2023 Unknown [employer] [facility] [employer] [id number] 2023-Present [address] [place] [address] [id number] 2023 Medicare [id number] 2023 Medicaid [id number] 2023 Medicaid [id number] 2022 Medicare [id number]. 1.13.159.2.7 .[id number] 1959 Unknown [id number] 2.16.840.1.229962.3.579.2.7 27 1959 Unknown [id number] 2.16.840.1.289072.3.579.2.7 27 1959 Unknown [id number] 2.16.840.1.246842.3.579.2.7 27 1959 Unknown [id number] 2.16.840.1.755736.3.579.2.7 1959 Unknown [id number] 2.16.840.1.781716.3.579.2.7 27 1959 Unknown [id number] 2.16.840.1.955693.3.579.2.7 1959 Unknown [id number] 2.16.840.1.170096.3.579.2.7 1959 Unknown [id number] 2.16.840.1.930203.3.579.2.7 1959 Unknown [id number] 2.16.840.1.098640.3.579.2.7 1959 Unknown [id number] 2.16.840.1.791974.3.579.2.7 1959 Unknown [id number] 2.16.840.1.633012.3.579.2.7 1959 Unknown [id number] 2.16.840.1.543383.3.579.2.7 1959 Unknown [id number] 2.16.840.1.880005.3.579.2.7 1959 Unknown [id number] 2.16.840.1.324229.3.579.2.7 1959 Unknown [id number] 2.16.840.1.917081.3.579.2.7 1959 Unknown [id number] 2.16.840.1.552409.3.579.2.7 1959 Unknown [id number] 2.16.840.1.919228.3.579.2.7 1959 Unknown [id number] 2.16.840.1.713373.3.579.2.7 1959 Unknown [id number] 2.16.840.1.245868.3.579.2.7 1959 Unknown [id number] 2.16.840.1.731216.3.579.2.7 1959 Unknown [id number] 2.16.840.1.104789.3.579.2.7 1959 Unknown [id number] 2.16.840.1.310876.3.579.2.7 1959 Unknown [id number] 2.16.840.1.820752.3.579.2.7 1959 Unknown [id number] 2.16.840.1.168109.3.579.2.7 1959 Unknown [id number] 2.16.840.1.764401.3.579.2.7 1959 Unknown [id number] 2.16.840.1.158298.3.579.2.7 1959 Unknown [id number] 2.16.840.1.183757.3.579.2.7 1959 Unknown [id number] 2.16.840.1.242840.3.579.2.7 1959 Unknown [id number] 2.16.840.1.878200.3.579.2.7 1959 Unknown [id number] 2.16.840.1.296166.3.579.2.7 1959 Unknown [id number] 2.16.840.1.028794.3.579.2.7 1959 Unknown [id number] 2.16.840.1.439517.3.579.2.7 1959 Unknown [id number] 2.16.840.1.172627.3.579.2.7 1959 Unknown [id number] 2.16.840.1.308054.3.579.2.7 1959 Unknown [id number] 2.16.840.1.007813.3.579.2.7 1959 Unknown [id number] 2.16.840.1.080988.3.579.2.7 1959 Unknown [id number] 2.16.840.1.603651.3.579.2.7 1959 Unknown [id number] 2.16.840.1.991873.3.579.2.7 1959 Unknown [id number] 2.16.840.1.082547.3.579.2.7 1959 Unknown [id number] 2.16.840.1.263189.3.579.2.7 1959 Unknown [id number] 2.16.840.1.695252.3.579.2.7 1959 Unknown [id number] 2.16.840.1.512848.3.579.2.7 1959 Unknown [id number] 2.16.840.1.458726.3.579.2.7 1959 Unknown [id number] 2.16.840.1.728111.3.579.2.7 1959 Unknown [id number] 2.16.840.1.651056.3.579.2.7 27 1959 Unknown [id number] 2.16.840.1.946201.3.579.2.7 27 1959 Unknown [id number] 2.16.840.1.289351.3.579.2.7 27 1959 Unknown [id number] 2.16.840.1.413310.3.579.2.7 27 1959 Unknown [id number] 2.16.840.1.483641.3.579.2.7 27 1959 Unknown [id number] 2.16.840.1.157054.3.579.2.7 27 1959 Unknown [id number] 2.16.840.1.406856.3.579.2.7 27 1959 Unknown [id number] 2.16.840.1.525107.3.579.2.7 27 1959 Unknown [id number] 2.16.840.1.216963.3.579.2.7 27 1959 Unknown [id number] 2.16.840.1.383976.3.579.2.7 27 1959 Unknown [id number] 2.16.840.1.455115.3.579.2.1 259 1959 Unknown [id number] 2.16.840.1.393601.3.579.2.1 259 1959 Unknown [id number] 2.16.840.1.703533.3.579.2.1 259 1959 Unknown [id number] 2.16.840.1.974159.3.579.2.1 259 1959 Unknown [id number] 2.16.840.1.953219.3.579.2.1 259 1959 Unknown [id number] 2.16.840.1.916343.3.579.2.1 259 1959 Unknown [id number] 2.16.840.1.337103.3.579.2.1 259 1959 Unknown [id number] 2.16.840.1.654517.3.579.2.1 259 1959 Unknown [id number] 2.16.840.1.206060.3.579.2.1 259 1959 Unknown [id number] 2.16.840.1.288823.3.579.2.1 259 1959 Unknown [id number] 2.16.840.1.607313.3.579.2.1 259 1959 Unknown [id number] 2.16.840.1.495788.3.579.2.1 259 1959 Unknown [id number] 2.16.840.1.400391.3.579.2.1 259 1959 Unknown [id number] 2.16.840.1.943193.3.579.2.1 259 1959 Unknown [id number] 2.16.840.1.410088.3.579.2.1 259 Medicare Medicare [id number] Unknown [id number] 2.16.840.1.977823.3.579.2.5 31 Social History Date Type Detail Facility Start: 12-28-2021 End: 06-27-2023 Tobacco smoking status Never smoked tobacco (finding) [facility] Tobacco smoking status [facility] Start: 09-06-2023 End: 04-11-2025 Sex Assigned At Male [facility] Start: 1960 Sex Assigned At Male [facility] Start: 06-27-2023 Tobacco use and exposure Smoke less tobacco non-user [facility] Start: 09-06-2023 End: 03-17-2025 Alcohol intake Lifetime non-drinker (finding) [facility] Start: 09-06-2023 End: 04-11-2025 History of Social function [facility] Start: 04-02-2023 Alcohol Comment caffeine 1-2 c ups per day [facility] Start: 1960 Sex Assigned At Not on file [facility] Start: 10-24-2023 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 Yes [facility] At any time in the p ast 12 months, were you homeless or living in senior care [including now]? No [facility] Medical Equipment Procedure Code Equipment Code Equipment Origin al Text Equipment Identifier Dates Glucometer test strips, See Instructions, 100 strip(s), 11, Test TID DX E11.40 on insulin, [facility] #[id number], Supply, 182, cm, 10/01/21 10:14:00 EST, Height/Length Dosing, 131.2, kg, 10/01/21 10:14:00 EST, Weight Dosing Start: 10-28-2021 lancets, See Instructions, 100 EA, 11, test blood sugar tid dx E11.9 on insulin, [facility] #[id number], Supply, 182, cm, 10/01/21 10:14:00 EST, Height/Length Dosing, 131.2, kg, 10/01/21 10:14:00 EST, Weight Dosing Start: 10-29-2021 Glucometer test strips, See Instructions, 100 strip(s), 11, Test TID DX E11.40 on insulin, [facility] #[id number], Supply, 182, cm, 10/01/21 10:14:00 EST, Height/Length Dosing, 131.2, kg, 10/01/21 10:14:00 EST, Weight Dosing Start: 10-28-2021 lancets, See Instructions, 100 EA, 11, test blood sugar tid dx E11.9 on insulin, [facility] #[id number], Supply, 182, cm, 10/01/21 10:14:00 EST, Height/Length Dosing, 131.2, kg, 10/01/21 10:14:00 EST, Weight Dosing Start: 10-29-2021 Glucometer test strips, See Instructions, 100 strip(s), 11, Test TID DX E11.40 on insulin, [facility] #[id number], Supply, 182, cm, 10/01/21 10:14:00 EST, Height/Length Dosing, 131.2, kg, 10/01/21 10:14:00 EST, Weight Dosing Start: 10-28-2021 lancets, See Instructions, 100 EA, 11, test blood sugar tid dx E11.9 on insulin, [facility] #[id number], Supply, 182, cm, 10/01/21 10:14:00 EST, Height/Length Dosing, 131.2, kg, 10/01/21 10:14:00 EST, Weight Dosing Start: 10-29-2021 Glucometer test strips, See Instructions, 100 strip(s), 11, Test TID DX E11.40 on insulin, [facility] #[id number], Supply, 182, cm, 10/01/21 10:14:00 EST, Height/Length Dosing, 131.2, kg, 10/01/21 10:14:00 EST, Weight Dosing Start: 10-28-2021 lancets, See Instructions, 100 EA, 11, test blood sugar tid dx E11.9 on insulin, [facility] #[id number], Supply, 182, cm, 10/01/21 10:14:00 EST, Height/Length Dosing, 131.2, kg, 10/01/21 10:14:00 EST, Weight Dosing Start: 10-29-2021 Glucometer test strips, See Instructions, 100 strip(s), 11, Test TID DX E11.40 on insulin, [facility] #[id number], Supply, 182, cm, 10/01/21 10:14:00 EST, Height/Length Dosing, 131.2, kg, 10/01/21 10:14:00 EST, Weight Dosing Start: 10-28-2021 lancets, See Instructions, 100 EA, 11, test blood sugar tid dx E11.9 on insulin, [facility] #[id number], Supply, 182, cm, 10/01/21 10:14:00 EST, Height/Length Dosing, 131.2, kg, 10/01/21 10:14:00 EST, Weight Dosing Start: 10-29-2021 Glucometer test strips, See Instructions, 100 strip(s), 11, Test TID DX E11.40 on insulin, [facility] #[id number], Supply, 182, cm, 10/01/21 10:14:00 EST, Height/Length Dosing, 131.2, kg, 10/01/21 10:14:00 EST, Weight Dosing Start: 10-28-2021 lancets, See Instructions, 100 EA, 11, test blood sugar tid dx E11.9 on insulin, [facility] #[id number], Supply, 182, cm, 10/01/21 10:14:00 EST, Height/Length Dosing, 131.2, kg, 10/01/21 10:14:00 EST, Weight Dosing Start: 10-29-2021 Glucometer test strips, See Instructions, 100 strip(s), 11, Test TID DX E11.40 on insulin, [facility] #[id number], Supply, 182, cm, 09/13/22 13:17:00 EST, Height/Length Dosing, 140.8, kg, 09/13/22 13:17:00 EST, Weight Dosing Start: 09-13-2022 Insulin Pen Need les 31g x 8 mm, See Instructions, 450 EA, 4, Use up to 4 daily, [facility] #[id number], Supply, 182, cm, 09/13/22 13:17:00 EST, Height/Length Dosing, 140.8, kg, 09/13/22 13:17:00 EST, Weight Dosing Start: 09-13-2022 lancets, See Instructions, 100 EA, 11, test blood sugar tid dx E11.9 on insulin, [facility] #[id number], Supply, 182, cm, 10/01/21 10:14:00 EST, Height/Length Dosing, 131.2, kg, 10/01/21 10:14:00 EST, Weight Dosing Start: 10-29-2021 Glucometer test strips, See Instructions, 100 strip(s), 11, Test TID DX E11.40 on insulin, [facility] #[id number], Supply, 182, cm, 09/13/22 13:17:00 EST, Height/Length Dosing, 140.8, kg, 09/13/22 13:17:00 EST, Weight Dosing Start: 09-13-2022 Insulin Pen Need les 31g x 8 mm, See Instructions, 450 EA, 4, Use up to 4 daily, [facility] #[id number], Supply, 182, cm, 09/13/22 13:17:00 EST, Height/Length Dosing, 140.8, kg, 09/13/22 13:17:00 EST, Weight Dosing Start: 09-13-2022 lancets, See Instructions, 100 EA, 11, test blood sugar tid dx E11.9 on insulin, [facility] #[id number], Supply, 182, cm, 10/01/21 10:14:00 EST, Height/Length Dosing, 131.2, kg, 10/01/21 10:14:00 EST, Weight Dosing Start: 10-29-2021 Glucometer test strips, See Instructions, 100 strip(s), 11, Test TID DX E11.40 on insulin, [facility] #[id number], Supply, 182, cm, 09/13/22 13:17:00 EST, Height/Length Dosing, 140.8, kg, 09/13/22 13:17:00 EST, Weight Dosing Start: 09-13-2022 Insulin Pen Need les 31g x 8 mm, See Instructions, 450 EA, 4, Use up to 4 daily, [facility] #[id number], Supply, 182, cm, 09/13/22 13:17:00 EST, Height/Length Dosing, 140.8, kg, 09/13/22 13:17:00 EST, Weight Dosing Start: 09-13-2022 lancets, See Instructions, 100 EA, 11, test blood sugar tid dx E11.9 on insulin, [facility] #[id number], Supply, 182, cm, 10/01/21 10:14:00 EST, Height/Length Dosing, 131.2, kg, 10/01/21 10:14:00 EST, Weight Dosing Start: 10-29-2021 Glucometer test strips, See Instructions, 100 strip(s), 11, Test TID DX E11.40 on insulin, [facility] #[id number], Supply, 182, cm, 09/13/22 13:17:00 EST, Height/Length Dosing, 140.8, kg, 09/13/22 13:17:00 EST, Weight Dosing Start: 11-03-2022 Insulin Pen Need les 31g x 8 mm, See Instructions, 450 EA, 4, Use up to 4 daily, [facility] #[id number], Supply, 182, cm, 09/13/22 13:17:00 EST, Height/Length Dosing, 140.8, kg, 09/13/22 13:17:00 EST, Weight Dosing Start: 09-13-2022 lancets, See Instructions, 100 EA, 11, test blood sugar tid dx E11.9 on insulin, [facility] #[id number], Supply, 182, cm, 09/13/22 13:17:00 EST, Height/Length Dosing, 140.8, kg, 09/13/22 13:17:00 EST, Weight Dosing Start: 11-03-2022 Glucometer test strips, See Instructions, 100 strip(s), 11, Test TID DX E11.40 on insulin, [facility] #[id number], Supply, 182, cm, 09/13/22 13:17:00 EST, Height/Length Dosing, 140.8, kg, 09/13/22 13:17:00 EST, Weight Dosing Start: 11-03-2022 Insulin Pen Need les 31g x 8 mm, See Instructions, 450 EA, 4, Use up to 4 daily, [facility] #[id number], Supply, 182, cm, 09/13/22 13:17:00 EST, Height/Length Dosing, 140.8, kg, 09/13/22 13:17:00 EST, Weight Dosing Start: 01-24-2023 lancets, See Instructions, 100 EA, 11, test blood sugar tid dx E11.9 on insulin, [facility] #[id number], Supply, 182, cm, 09/13/22 13:17:00 EST, Height/Length Dosing, 140.8, kg, 09/13/22 13:17:00 EST, Weight Dosing Start: 11-03-2022 Glucometer test strips, See Instructions, 100 strip(s), 11, Test TID DX E11.40 on insulin, [facility] #[id number], Supply, 182, cm, 09/13/22 13:17:00 EST, Height/Length Dosing, 140.8, kg, 09/13/22 13:17:00 EST, Weight Dosing Start: 11-03-2022 Insulin Pen Need les 31g x 8 mm, See Instructions, 450 EA, 4, Use up to 4 daily, [facility] #[id number], Supply, 182, cm, 09/13/22 13:17:00 EST, Height/Length Dosing, 140.8, kg, 09/13/22 13:17:00 EST, Weight Dosing Start: 09-13-2022 lancets, See Instructions, 100 EA, 11, test blood sugar tid dx E11.9 on insulin, [facility] #[id number], Supply, 182, cm, 09/13/22 13:17:00 EST, Height/Length Dosing, 140.8, kg, 09/13/22 13:17:00 EST, Weight Dosing Start: 11-03-2022 Glucometer test strips, See Instructions, 100 strip(s), 11, Test TID DX E11.40 on insulin, [facility] #[id number], Supply, 182, cm, 09/13/22 13:17:00 EST, Height/Length Dosing, 140.8, kg, 09/13/22 13:17:00 EST, Weight Dosing Start: 11-03-2022 Insulin Pen Need les 31g x 8 mm, See Instructions, 450 EA, 4, Use up to 4 daily, [facility] #[id number], Supply, 182, cm, 09/13/22 13:17:00 EST, Height/Length Dosing, 140.8, kg, 09/13/22 13:17:00 EST, Weight Dosing Start: 09-13-2022 lancets, See Instructions, 100 EA, 11, test blood sugar tid dx E11.9 on insulin, [facility] #[id number], Supply, 182, cm, 09/13/22 13:17:00 EST, Height/Length Dosing, 140.8, kg, 09/13/22 13:17:00 EST, Weight Dosing Start: 11-03-2022 Glucometer test strips, See Instructions, 100 strip(s), 11, Test TID DX E11.40 on insulin, [facility] #[id number], Supply, 182, cm, 09/13/22 13:17:00 EST, Height/Length Dosing, 140.8, kg, 09/13/22 13:17:00 EST, Weight Dosing Start: 11-03-2022 Insulin Pen Need les 31g x 8 mm, See Instructions, 450 EA, 4, Use up to 4 daily, [facility] #[id number], Supply, 182, cm, 09/13/22 13:17:00 EST, Height/Length Dosing, 140.8, kg, 09/13/22 13:17:00 EST, Weight Dosing Start: 09-13-2022 lancets, See Instructions, 100 EA, 11, test blood sugar tid dx E11.9 on insulin, [facility] #[id number], Supply, 182, cm, 09/13/22 13:17:00 EST, Height/Length Dosing, 140.8, kg, 09/13/22 13:17:00 EST, Weight Dosing Start: 11-03-2022 Glucometer test strips, See Instructions, 100 strip(s), 11, Test TID DX E11.40 on insulin, [facility] #[id number], Supply, 182, cm, 09/13/22 13:17:00 EST, Height/Length Dosing, 140.8, kg, 09/13/22 13:17:00 EST, Weight Dosing Start: 11-03-2022 Insulin Pen Need les 31g x 8 mm, See Instructions, 450 EA, 4, Use up to 4 daily, [facility] #[id number], Supply, 182, cm, 09/13/22 13:17:00 EST, Height/Length Dosing, 140.8, kg, 09/13/22 13:17:00 EST, Weight Dosing Start: 09-13-2022 lancets, See Instructions, 100 EA, 11, test blood sugar tid dx E11.9 on insulin, [facility] #[id number], Supply, 182, cm, 09/13/22 13:17:00 EST, Height/Length Dosing, 140.8, kg, 09/13/22 13:17:00 EST, Weight Dosing Start: 11-03-2022 Glucometer test strips, See Instructions, 100 strip(s), 11, Test TID DX E11.40 on insulin, [facility] #[id number], Supply, 182, cm, 09/13/22 13:17:00 EST, Height/Length Dosing, 140.8, kg, 09/13/22 13:17:00 EST, Weight Dosing Start: 11-03-2022 Insulin Pen Need les 31g x 8 mm, See Instructions, 450 EA, 4, Use up to 4 daily, [facility] #[id number], Supply, 182, cm, 09/13/22 13:17:00 EST, Height/Length Dosing, 140.8, kg, 09/13/22 13:17:00 EST, Weight Dosing Start: 09-13-2022 lancets, See Instructions, 100 EA, 11, test blood sugar tid dx E11.9 on insulin, [facility] #[id number], Supply, 182, cm, 09/13/22 13:17:00 EST, Height/Length Dosing, 140.8, kg, 09/13/22 13:17:00 EST, Weight Dosing Start: 11-03-2022 Glucometer test strips, See Instructions, 100 strip(s), 11, Test TID DX E11.40 on insulin, [facility] #[id number], Supply, 182, cm, 09/13/22 13:17:00 EST, Height/Length Dosing, 140.8, kg, 09/13/22 13:17:00 EST, Weight Dosing Start: 11-03-2022 Insulin Pen Need les 31g x 8 mm, See Instructions, 450 EA, 4, Use up to 4 daily, [facility] #[id number], Supply, 182, cm, 09/13/22 13:17:00 EST, Height/Length Dosing, 140.8, kg, 09/13/22 13:17:00 EST, Weight Dosing Start: 09-13-2022 lancets, See Instructions, 100 EA, 11, test blood sugar tid dx E11.9 on insulin, [facility] #[id number], Supply, 182, cm, 09/13/22 13:17:00 EST, Height/Length Dosing, 140.8, kg, 09/13/22 13:17:00 EST, Weight Dosing Start: 11-03-2022 Glucometer test strips, See Instructions, 100 strip(s), 11, Test TID DX E11.40 on insulin, [facility] #[id number], Supply, 182, cm, 09/13/22 13:17:00 EST, Height/Length Dosing, 140.8, kg, 09/13/22 13:17:00 EST, Weight Dosing Start: 11-03-2022 Insulin Pen Need les 31g x 8 mm, See Instructions, 450 EA, 4, Use up to 4 daily, [facility] #[id number], Supply, 182, cm, 09/13/22 13:17:00 EST, Height/Length Dosing, 140.8, kg, 09/13/22 13:17:00 EST, Weight Dosing Start: 09-13-2022 lancets, See Instructions, 100 EA, 11, test blood sugar tid dx E11.9 on insulin, [facility] #[id number], Supply, 182, cm, 09/13/22 13:17:00 EST, Height/Length Dosing, 140.8, kg, 09/13/22 13:17:00 EST, Weight Dosing Start: 11-03-2022 Glucometer test strips, See Instructions, 100 strip(s), 11, Test TID DX E11.40 on insulin, [facility] #[id number], Supply, 182, cm, 09/13/22 13:17:00 EST, Height/Length Dosing, 140.8, kg, 09/13/22 13:17:00 EST, Weight Dosing Start: 11-03-2022 Insulin Pen Need les 31g x 8 mm, See Instructions, 450 EA, 4, Use up to 4 daily, [facility] #[id number], Supply, 182, cm, 05/22/23 13:30:00 EDT, Height/Length Dosing, 139.6, kg, 05/22/23 13:30:00 EDT, Weight Dosing Start: 05-22-2023 lancets, See Instructions, 100 EA, 11, test blood sugar tid dx E11.9 on insulin, [facility] #[id number], Supply, 182, cm, 09/13/22 13:17:00 EST, Height/Length Dosing, 140.8, kg, 09/13/22 13:17:00 EST, Weight Dosing Start: 11-03-2022 Glucometer test strips, See Instructions, 100 strip(s), 11, Test TID DX E11.40 on insulin, [facility] #[id number], Supply, 182, cm, 09/13/22 13:17:00 EST, Height/Length Dosing, 140.8, kg, 09/13/22 13:17:00 EST, Weight Dosing Start: 11-03-2022 Insulin Pen Need les 31g x 8 mm, See Instructions, 450 EA, 4, Use up to 4 daily, [facility] #[id number], Supply, 182, cm, 05/22/23 13:30:00 EDT, Height/Length Dosing, 139.6, kg, 05/22/23 13:30:00 EDT, Weight Dosing Start: 05-22-2023 lancets, See Instructions, 100 EA, 11, test blood sugar tid dx E11.9 on insulin, [facility] #[id number], Supply, 182, cm, 09/13/22 13:17:00 EST, Height/Length Dosing, 140.8, kg, 09/13/22 13:17:00 EST, Weight Dosing Start: 11-03-2022 Glucometer test strips, See Instructions, 100 strip(s), 11, Test TID DX E11.40 on insulin, [facility] #[id number], Supply, 182, cm, 09/13/22 13:17:00 EST, Height/Length Dosing, 140.8, kg, 09/13/22 13:17:00 EST, Weight Dosing Start: 11-03-2022 Insulin Pen Need les 31g x 8 mm, See Instructions, 450 EA, 4, Use up to 4 daily, [facility] #[id number], Supply, 182, cm, 05/22/23 13:30:00 EDT, Height/Length Dosing, 139.6, kg, 05/22/23 13:30:00 EDT, Weight Dosing Start: 05-22-2023 lancets, See Instructions, 100 EA, 11, test blood sugar tid dx E11.9 on insulin, [facility] #[id number], Supply, 182, cm, 09/13/22 13:17:00 EST, Height/Length Dosing, 140.8, kg, 09/13/22 13:17:00 EST, Weight Dosing Start: 11-03-2022 Glucometer test strips, See Instructions, 100 strip(s), 11, Test TID DX E11.40 on insulin, [facility] #[id number], Supply, 182, cm, 09/13/22 13:17:00 EST, Height/Length Dosing, 140.8, kg, 09/13/22 13:17:00 EST, Weight Dosing Start: 11-03-2022 Insulin Pen Need les 31g x 8 mm, See Instructions, 450 EA, 4, Use up to 4 daily, [facility] #[id number], Supply, 182, cm, 05/22/23 13:30:00 EDT, Height/Length Dosing, 139.6, kg, 05/22/23 13:30:00 EDT, Weight Dosing Start: 05-22-2023 lancets, See Instructions, 100 EA, 11, test blood sugar tid dx E11.9 on insulin, [facility] #[id number], Supply, 182, cm, 09/13/22 13:17:00 EST, Height/Length Dosing, 140.8, kg, 09/13/22 13:17:00 EST, Weight Dosing Start: 11-03-2022 Glucometer test strips, See Instructions, 100 strip(s), 11, Test TID DX E11.40 on insulin, [facility] #[id number], Supply, 182, cm, 09/13/22 13:17:00 EST, Height/Length Dosing, 140.8, kg, 09/13/22 13:17:00 EST, Weight Dosing Start: 11-03-2022 Insulin Pen Need les 31g x 8 mm, See Instructions, 450 EA, 4, Use up to 4 daily, [facility] #[id number], Supply, 182, cm, 05/22/23 13:30:00 EDT, Height/Length Dosing, 139.6, kg, 05/22/23 13:30:00 EDT, Weight Dosing Start: 05-22-2023 lancets, See Instructions, 100 EA, 11, test blood sugar tid dx E11.9 on insulin, [facility] #[id number], Supply, 182, cm, 09/13/22 13:17:00 EST, Height/Length Dosing, 140.8, kg, 09/13/22 13:17:00 EST, Weight Dosing Start: 11-03-2022 Glucometer test strips, See Instructions, 100 strip(s), 11, Test TID DX E11.40 on insulin, [facility] #[id number], Supply, 182, cm, 09/13/22 13:17:00 EST, Height/Length Dosing, 140.8, kg, 09/13/22 13:17:00 EST, Weight Dosing Start: 11-03-2022 Insulin Pen Need les 31g x 8 mm, See Instructions, 450 EA, 4, Use up to 4 daily, [facility] #[id number], Supply, 182, cm, 05/22/23 13:30:00 EDT, Height/Length Dosing, 139.6, kg, 05/22/23 13:30:00 EDT, Weight Dosing Start: 05-22-2023 lancets, See Instructions, 100 EA, 11, test blood sugar tid dx E11.9 on insulin, [facility] #[id number], Supply, 182, cm, 09/13/22 13:17:00 EST, Height/Length Dosing, 140.8, kg, 09/13/22 13:17:00 EST, Weight Dosing Start: 11-03-2022 Glucometer test strips, See Instructions, 100 strip(s), 11, Test TID DX E11.40 on insulin, [facility] #[id number], Supply, 182, cm, 09/13/22 13:17:00 EST, Height/Length Dosing, 140.8, kg, 09/13/22 13:17:00 EST, Weight Dosing Start: 11-03-2022 Insulin Pen Need les 31g x 8 mm, See Instructions, 450 EA, 4, Use up to 4 daily, [facility] #[id number], Supply, 182, cm, 05/22/23 13:30:00 EDT, Height/Length Dosing, 139.6, kg, 05/22/23 13:30:00 EDT, Weight Dosing Start: 05-22-2023 lancets, See Instructions, 100 EA, 11, test blood sugar tid dx E11.9 on insulin, [facility] #[id number], Supply, 182, cm, 09/13/22 13:17:00 EST, Height/Length Dosing, 140.8, kg, 09/13/22 13:17:00 EST, Weight Dosing Start: 11-03-2022 Glucometer test strips, See Instructions, 100 strip(s), 11, Test TID DX E11.40 on insulin, [facility] #[id number], Supply, 182, cm, 09/13/22 13:17:00 EST, Height/Length Dosing, 140.8, kg, 09/13/22 13:17:00 EST, Weight Dosing Start: 11-03-2022 Insulin Pen Need les 31g x 8 mm, See Instructions, 450 EA, 4, Use up to 4 daily, [facility] #[id number], Supply, 182, cm, 05/22/23 13:30:00 EDT, Height/Length Dosing, 139.6, kg, 05/22/23 13:30:00 EDT, Weight Dosing Start: 05-22-2023 lancets, See Instructions, 100 EA, 11, test blood sugar tid dx E11.9 on insulin, [facility] #[id number], Supply, 182, cm, 09/13/22 13:17:00 EST, Height/Length Dosing, 140.8, kg, 09/13/22 13:17:00 EST, Weight Dosing Start: 11-03-2022 Glucometer test strips, See Instructions, 100 strip(s), 11, Test TID DX E11.40 on insulin, [facility] #[id number], Supply, 182, cm, 09/13/22 13:17:00 EST, Height/Length Dosing, 140.8, kg, 09/13/22 13:17:00 EST, Weight Dosing Start: 11-03-2022 Insulin Pen Need les 31g x 8 mm, See Instructions, 450 EA, 4, Use up to 4 daily, [facility] #[id number], Supply, 182, cm, 05/22/23 13:30:00 EDT, Height/Length Dosing, 139.6, kg, 05/22/23 13:30:00 EDT, Weight Dosing Start: 05-22-2023 lancets, See Instructions, 100 EA, 11, test blood sugar tid dx E11.9 on insulin, [facility] #[id number], Supply, 182, cm, 09/13/22 13:17:00 EST, Height/Length Dosing, 140.8, kg, 09/13/22 13:17:00 EST, Weight Dosing Start: 11-03-2022 Glucometer test strips, See Instructions, 100 strip(s), 11, Test TID DX E11.40 on insulin, [facility] #[id number], Supply, 182, cm, 09/13/22 13:17:00 EST, Height/Length Dosing, 140.8, kg, 09/13/22 13:17:00 EST, Weight Dosing Start: 11-03-2022 Insulin Pen Need les 31g x 8 mm, See Instructions, 450 EA, 4, Use up to 4 daily, [facility] #[id number], Supply, 182, cm, 05/22/23 13:30:00 EDT, Height/Length Dosing, 139.6, kg, 05/22/23 13:30:00 EDT, Weight Dosing Start: 05-22-2023 lancets, See Instructions, 100 EA, 11, test blood sugar tid dx E11.9 on insulin, [facility] #[id number], Supply, 182, cm, 09/13/22 13:17:00 EST, Height/Length Dosing, 140.8, kg, 09/13/22 13:17:00 EST, Weight Dosing Start: 11-03-2022 Glucometer test strips, See Instructions, 100 strip(s), 11, Test TID DX E11.40 on insulin, [facility] #[id number], Supply, 182, cm, 09/13/22 13:17:00 EST, Height/Length Dosing, 140.8, kg, 09/13/22 13:17:00 EST, Weight Dosing Start: 11-03-2022 Insulin Pen Need les 31g x 8 mm, See Instructions, 450 EA, 4, Use up to 4 daily, [facility] #[id number], Supply, 182, cm, 05/22/23 13:30:00 EDT, Height/Length Dosing, 139.6, kg, 05/22/23 13:30:00 EDT, Weight Dosing Start: 05-22-2023 lancets, See Instructions, 100 EA, 11, test blood sugar tid dx E11.9 on insulin, [facility] #[id number], Supply, 182, cm, 09/13/22 13:17:00 EST, Height/Length Dosing, 140.8, kg, 09/13/22 13:17:00 EST, Weight Dosing Start: 11-03-2022 Glucometer test strips, See Instructions, 100 strip(s), 11, Test TID DX E11.40 on insulin, [facility] #[id number], Supply, 182, cm, 09/13/22 13:17:00 EST, Height/Length Dosing, 140.8, kg, 09/13/22 13:17:00 EST, Weight Dosing Start: 11-03-2022 Insulin Pen Need les 31g x 8 mm, See Instructions, 450 EA, 4, Use up to 4 daily, [facility] #[id number], Supply, 182, cm, 05/22/23 13:30:00 EDT, Height/Length Dosing, 139.6, kg, 05/22/23 13:30:00 EDT, Weight Dosing Start: 05-22-2023 lancets, See Instructions, 100 EA, 11, test blood sugar tid dx E11.9 on insulin, [facility] #[id number], Supply, 182, cm, 09/13/22 13:17:00 EST, Height/Length Dosing, 140.8, kg, 09/13/22 13:17:00 EST, Weight Dosing Start: 11-03-2022 Glucometer test strips, See Instructions, 100 strip(s), 11, Test TID DX E11.40 on insulin, [facility] #[id number], Supply, 182, cm, 09/13/22 13:17:00 EST, Height/Length Dosing, 140.8, kg, 09/13/22 13:17:00 EST, Weight Dosing Start: 11-03-2022 Insulin Pen Need les 31g x 8 mm, See Instructions, 450 EA, 4, Use up to 4 daily, [facility] #[id number], Supply, 182, cm, 05/22/23 13:30:00 EDT, Height/Length Dosing, 139.6, kg, 05/22/23 13:30:00 EDT, Weight Dosing Start: 05-22-2023 lancets, See Instructions, 100 EA, 11, test blood sugar tid dx E11.9 on insulin, [facility] #[id number], Supply, 182, cm, 09/13/22 13:17:00 EST, Height/Length Dosing, 140.8, kg, 09/13/22 13:17:00 EST, Weight Dosing Start: 11-03-2022 Glucometer test strips, See Instructions, 100 strip(s), 11, Test TID DX E11.40 on insulin, [facility] #[id number], Supply, 182, cm, 09/13/22 13:17:00 EST, Height/Length Dosing, 140.8, kg, 09/13/22 13:17:00 EST, Weight Dosing Start: 11-03-2022 Insulin Pen Need les 31g x 8 mm, See Instructions, 450 EA, 4, Use up to 4 daily, [facility] #[id number], Supply, 182, cm, 05/22/23 13:30:00 EDT, Height/Length Dosing, 139.6, kg, 05/22/23 13:30:00 EDT, Weight Dosing Start: 05-22-2023 lancets, See Instructions, 100 EA, 11, test blood sugar tid dx E11.9 on insulin, [facility] #[id number], Supply, 182, cm, 09/13/22 13:17:00 EST, Height/Length Dosing, 140.8, kg, 09/13/22 13:17:00 EST, Weight Dosing Start: 11-03-2022 Glucometer test strips, See Instructions, 100 strip(s), 11, Test TID DX E11.40 on insulin, [facility] #[id number], Supply, 182, cm, 09/13/22 13:17:00 EST, Height/Length Dosing, 140.8, kg, 09/13/22 13:17:00 EST, Weight Dosing Start: 11-03-2022 Insulin Pen Need les 31g x 8 mm, See Instructions, 450 EA, 4, Use up to 4 daily, [facility] #[id number], Supply, 182, cm, 05/22/23 13:30:00 EDT, Height/Length Dosing, 139.6, kg, 05/22/23 13:30:00 EDT, Weight Dosing Start: 05-22-2023 lancets, See Instructions, 100 EA, 11, test blood sugar tid dx E11.9 on insulin, [facility] #[id number], Supply, 182, cm, 09/13/22 13:17:00 EST, Height/Length Dosing, 140.8, kg, 09/13/22 13:17:00 EST, Weight Dosing Start: 11-03-2022 Glucometer test strips, See Instructions, 100 strip(s), 11, Test TID DX E11.40 on insulin, [facility] #[id number], Supply, 180, cm, 09/12/23 13:35:00 EST, Height/Length Dosing, 149.8, kg, 09/12/23 13:35:00 EST, Weight Dosing Start: 09-16-2023 Insulin Pen Need les 31g x 8 mm, See Instructions, 450 EA, 4, Use up to 4 daily, [facility] #[id number], Supply, 180, cm, 09/12/23 13:35:00 EST, Height/Length Dosing, 149.8, kg, 09/12/23 13:35:00 EST, Weight Dosing Start: 09-16-2023 lancets, See Instructions, 100 EA, 11, test blood sugar tid dx E11.9 on insulin, [facility] #[id number], Supply, 180, cm, 09/12/23 13:35:00 EST, Height/Length Dosing, 149.8, kg, 09/12/23 13:35:00 EST, Weight Dosing Start: 09-16-2023 Glucometer test strips, See Instructions, 100 strip(s), 11, Test TID DX E11.40 on insulin, [facility] #[id number], Supply, 180, cm, 09/12/23 13:35:00 EST, Height/Length Dosing, 149.8, kg, 09/12/23 13:35:00 EST, Weight Dosing Start: 09-16-2023 Insulin Pen Need les 31g x 8 mm, See Instructions, 450 EA, 4, Use up to 4 daily, [facility] #[id number], Supply, 180, cm, 09/12/23 13:35:00 EST, Height/Length Dosing, 149.8, kg, 09/12/23 13:35:00 EST, Weight Dosing Start: 09-16-2023 lancets, See Instructions, 100 EA, 11, test blood sugar tid dx E11.9 on insulin, [facility] #[id number], Supply, 180, cm, 09/12/23 13:35:00 EST, Height/Length Dosing, 149.8, kg, 09/12/23 13:35:00 EST, Weight Dosing Start: 09-16-2023 Glucometer test strips, See Instructions, 100 strip(s), 11, Test TID DX E11.40 on insulin, [facility] #[id number], Supply, 180, cm, 09/12/23 13:35:00 EST, Height/Length Dosing, 149.8, kg, 09/12/23 13:35:00 EST, Weight Dosing Start: 09-16-2023 Insulin Pen Need les 31g x 8 mm, See Instructions, 450 EA, 4, Use up to 4 daily, [facility] #[id number], Supply, 180, cm, 09/12/23 13:35:00 EST, Height/Length Dosing, 149.8, kg, 09/12/23 13:35:00 EST, Weight Dosing Start: 09-16-2023 lancets, See Instructions, 100 EA, 11, test blood sugar tid dx E11.9 on insulin, [facility] #[id number], Supply, 180, cm, 09/12/23 13:35:00 EST, Height/Length Dosing, 149.8, kg, 09/12/23 13:35:00 EST, Weight Dosing Start: 09-16-2023 Glucometer test strips, See Instructions, 100 strip(s), 11, Test TID DX E11.40 on insulin, [facility] #[id number], Supply, 180, cm, 09/12/23 13:35:00 EST, Height/Length Dosing, 149.8, kg, 09/12/23 13:35:00 EST, Weight Dosing Start: 09-16-2023 Insulin Pen Need les 31g x 8 mm, See Instructions, 450 EA, 4, Use up to 4 daily, [facility] #[id number], Supply, 180, cm, 09/12/23 13:35:00 EST, Height/Length Dosing, 149.8, kg, 09/12/23 13:35:00 EST, Weight Dosing Start: 09-16-2023 lancets, See Instructions, 100 EA, 11, test blood sugar tid dx E11.9 on insulin, [facility] #[id number], Supply, 180, cm, 09/12/23 13:35:00 EST, Height/Length Dosing, 149.8, kg, 09/12/23 13:35:00 EST, Weight Dosing Start: 09-16-2023 Glucometer test strips, See Instructions, 100 strip(s), 11, Test TID DX E11.40 on insulin, [facility] #[id number], Supply, 180, cm, 09/12/23 13:35:00 EST, Height/Length Dosing, 149.8, kg, 09/12/23 13:35:00 EST, Weight Dosing Start: 09-16-2023 Insulin Pen Need les 31g x 8 mm, See Instructions, 450 EA, 4, Use up to 4 daily, [facility] #[id number], Supply, 180, cm, 09/12/23 13:35:00 EST, Height/Length Dosing, 149.8, kg, 09/12/23 13:35:00 EST, Weight Dosing Start: 09-16-2023 lancets, See Instructions, 100 EA, 11, test blood sugar tid dx E11.9 on insulin, [facility] #[id number], Supply, 180, cm, 09/12/23 13:35:00 EST, Height/Length Dosing, 149.8, kg, 09/12/23 13:35:00 EST, Weight Dosing Start: 09-16-2023 Glucometer test strips, See Instructions, 100 strip(s), 11, Test TID DX E11.40 on insulin, [facility] #[id number], Supply, 180, cm, 09/12/23 13:35:00 EST, Height/Length Dosing, 149.8, kg, 09/12/23 13:35:00 EST, Weight Dosing Start: 09-16-2023 Insulin Pen Need les 31g x 8 mm, See Instructions, 450 EA, 4, Use up to 4 daily, [facility] #[id number], Supply, 180, cm, 09/12/23 13:35:00 EST, Height/Length Dosing, 149.8, kg, 09/12/23 13:35:00 EST, Weight Dosing Start: 09-16-2023 lancets, See Instructions, 100 EA, 11, test blood sugar tid dx E11.9 on insulin, [facility] #[id number], Supply, 180, cm, 09/12/23 13:35:00 EST, Height/Length Dosing, 149.8, kg, 09/12/23 13:35:00 EST, Weight Dosing Start: 09-16-2023 Glucometer test strips, See Instructions, 100 strip(s), 11, Test TID DX E11.40 on insulin, [facility] #[id number], Supply, 180, cm, 09/12/23 13:35:00 EST, Height/Length Dosing, 149.8, kg, 09/12/23 13:35:00 EST, Weight Dosing Start: 09-16-2023 Insulin Pen Need les 31g x 8 mm, See Instructions, 450 EA, 4, Use up to 4 daily, [facility] #[id number], Supply, 180, cm, 09/12/23 13:35:00 EST, Height/Length Dosing, 149.8, kg, 09/12/23 13:35:00 EST, Weight Dosing Start: 09-16-2023 lancets, See Instructions, 100 EA, 11, test blood sugar tid dx E11.9 on insulin, [facility] #[id number], Supply, 180, cm, 09/12/23 13:35:00 EST, Height/Length Dosing, 149.8, kg, 09/12/23 13:35:00 EST, Weight Dosing Start: 09-16-2023 Glucometer test strips, See Instructions, 100 strip(s), 11, Test TID DX E11.40 on insulin, [facility] #[id number], Supply, 180, cm, 09/12/23 13:35:00 EST, Height/Length Dosing, 149.8, kg, 09/12/23 13:35:00 EST, Weight Dosing Start: 09-16-2023 Insulin Pen Need les 31g x 8 mm, See Instructions, 450 EA, 4, Use up to 4 daily, [facility] #[id number], Supply, 180, cm, 09/12/23 13:35:00 EST, Height/Length Dosing, 149.8, kg, 09/12/23 13:35:00 EST, Weight Dosing Start: 09-16-2023 lancets, See Instructions, 100 EA, 11, test blood sugar tid dx E11.9 on insulin, [facility] #[id number], Supply, 180, cm, 09/12/23 13:35:00 EST, Height/Length Dosing, 149.8, kg, 09/12/23 13:35:00 EST, Weight Dosing Start: 09-16-2023 Glucometer test strips, See Instructions, 100 strip(s), 11, Test TID DX E11.40 on insulin, [facility] #[id number], Supply, 180, cm, 09/12/23 13:35:00 EST, Height/Length Dosing, 149.8, kg, 09/12/23 13:35:00 EST, Weight Dosing Start: 09-16-2023 Insulin Pen Need les 31g x 8 mm, See Instructions, 450 EA, 4, Use up to 4 daily, [facility] #[id number], Supply, 180, cm, 09/12/23 13:35:00 EST, Height/Length Dosing, 149.8, kg, 09/12/23 13:35:00 EST, Weight Dosing Start: 09-16-2023 lancets, See Instructions, 100 EA, 11, test blood sugar tid dx E11.9 on insulin, [facility] #[id number], Supply, 180, cm, 09/12/23 13:35:00 EST, Height/Length Dosing, 149.8, kg, 09/12/23 13:35:00 EST, Weight Dosing Start: 09-16-2023 Glucometer test strips, See Instructions, 100 strip(s), 11, Test TID DX E11.40 on insulin, [facility] #[id number], Supply, 180, cm, 09/12/23 13:35:00 EST, Height/Length Dosing, 149.8, kg, 09/12/23 13:35:00 EST, Weight Dosing Start: 09-16-2023 Insulin Pen Need les 31g x 8 mm, See Instructions, 450 EA, 4, Use up to 4 daily, [facility] #[id number], Supply, 180, cm, 09/12/23 13:35:00 EST, Height/Length Dosing, 149.8, kg, 09/12/23 13:35:00 EST, Weight Dosing Start: 09-16-2023 lancets, See Instructions, 100 EA, 11, test blood sugar tid dx E11.9 on insulin, [facility] #[id number], Supply, 180, cm, 09/12/23 13:35:00 EST, Height/Length Dosing, 149.8, kg, 09/12/23 13:35:00 EST, Weight Dosing Start: 09-16-2023 Glucometer test strips, See Instructions, 100 strip(s), 11, Test TID DX E11.40 on insulin, [facility] #[id number], Supply, 180, cm, 09/12/23 13:35:00 EST, Height/Length Dosing, 149.8, kg, 09/12/23 13:35:00 EST, Weight Dosing Start: 09-16-2023 Insulin Pen Need les 31g x 8 mm, See Instructions, 450 EA, 4, Use up to 4 daily, [facility] #[id number], Supply, 180, cm, 09/12/23 13:35:00 EST, Height/Length Dosing, 149.8, kg, 09/12/23 13:35:00 EST, Weight Dosing Start: 09-16-2023 lancets, See Instructions, 100 EA, 11, test blood sugar tid dx E11.9 on insulin, [facility] #[id number], Supply, 180, cm, 09/12/23 13:35:00 EST, Height/Length Dosing, 149.8, kg, 09/12/23 13:35:00 EST, Weight Dosing Start: 09-16-2023 Glucometer test strips, See Instructions, 100 strip(s), 11, Test TID DX E11.40 on insulin, [facility] #[id number], Supply, 180, cm, 09/12/23 13:35:00 EST, Height/Length Dosing, 149.8, kg, 09/12/23 13:35:00 EST, Weight Dosing Start: 09-16-2023 Insulin Pen Need les 31g x 8 mm, See Instructions, 450 EA, 4, Use up to 4 daily, [facility] #[id number], Supply, 180, cm, 09/12/23 13:35:00 EST, Height/Length Dosing, 149.8, kg, 09/12/23 13:35:00 EST, Weight Dosing Start: 09-16-2023 lancets, See Instructions, 100 EA, 11, test blood sugar tid dx E11.9 on insulin, [facility] #[id number], Supply, 180, cm, 09/12/23 13:35:00 EST, Height/Length Dosing, 149.8, kg, 09/12/23 13:35:00 EST, Weight Dosing Start: 09-16-2023 Glucometer test strips, See Instructions, 100 strip(s), 11, Test TID DX E11.40 on insulin, [facility] #[id number], Supply, 180, cm, 09/12/23 13:35:00 EST, Height/Length Dosing, 149.8, kg, 09/12/23 13:35:00 EST, Weight Dosing Start: 09-16-2023 Insulin Pen Need les 31g x 8 mm, See Instructions, 450 EA, 4, Use up to 4 daily, [facility] #[id number], Supply, 180, cm, 09/12/23 13:35:00 EST, Height/Length Dosing, 149.8, kg, 09/12/23 13:35:00 EST, Weight Dosing Start: 09-16-2023 lancets, See Instructions, 100 EA, 11, test blood sugar tid dx E11.9 on insulin, [facility] #[id number], Supply, 180, cm, 09/12/23 13:35:00 EST, Height/Length Dosing, 149.8, kg, 09/12/23 13:35:00 EST, Weight Dosing Start: 09-16-2023 Glucometer test strips, See Instructions, 100 strip(s), 11, Test TID DX E11.40 on insulin, [facility] #[id number], Supply, 180, cm, 09/12/23 13:35:00 EST, Height/Length Dosing, 149.8, kg, 09/12/23 13:35:00 EST, Weight Dosing Start: 09-16-2023 Insulin Pen Need les 31g x 8 mm, See Instructions, 450 EA, 4, Use up to 4 daily, [facility] #[id number], Supply, 180, cm, 09/12/23 13:35:00 EST, Height/Length Dosing, 149.8, kg, 09/12/23 13:35:00 EST, Weight Dosing Start: 09-16-2023 lancets, See Instructions, 100 EA, 11, test blood sugar tid dx E11.9 on insulin, [facility] #[id number], Supply, 180, cm, 09/12/23 13:35:00 EST, Height/Length Dosing, 149.8, kg, 09/12/23 13:35:00 EST, Weight Dosing Start: 09-16-2023 Glucometer test strips, See Instructions, 100 strip(s), 11, Test TID DX E11.40 on insulin, [facility] #[id number], Supply, 180, cm, 09/12/23 13:35:00 EST, Height/Length Dosing, 149.8, kg, 09/12/23 13:35:00 EST, Weight Dosing Start: 09-16-2023 Insulin Pen Need les 31g x 8 mm, See Instructions, 450 EA, 4, Use up to 4 daily, [facility] #[id number], Supply, 180, cm, 09/12/23 13:35:00 EST, Height/Length Dosing, 149.8, kg, 09/12/23 13:35:00 EST, Weight Dosing Start: 09-16-2023 lancets, See Instructions, 100 EA, 11, test blood sugar tid dx E11.9 on insulin, [facility] #[id number], Supply, 180, cm, 09/12/23 13:35:00 EST, Height/Length Dosing, 149.8, kg, 09/12/23 13:35:00 EST, Weight Dosing Start: 09-16-2023 Glucometer test strips, See Instructions, 100 strip(s), 11, Test TID DX E11.40 on insulin, [facility] #[id number], Supply, 180, cm, 09/12/23 13:35:00 EST, Height/Length Dosing, 149.8, kg, 09/12/23 13:35:00 EST, Weight Dosing Start: 09-16-2023 Insulin Pen Need les 31g x 8 mm, See Instructions, 450 EA, 4, Use up to 4 daily, [facility] #[id number], Supply, 180, cm, 09/12/23 13:35:00 EST, Height/Length Dosing, 149.8, kg, 09/12/23 13:35:00 EST, Weight Dosing Start: 09-16-2023 lancets, See Instructions, 100 EA, 11, test blood sugar tid dx E11.9 on insulin, [facility] #[id number], Supply, 180, cm, 09/12/23 13:35:00 EST, Height/Length Dosing, 149.8, kg, 09/12/23 13:35:00 EST, Weight Dosing Start: 09-16-2023 Glucometer test strips, See Instructions, 100 strip(s), 11, Test TID DX E11.40 on insulin, [facility] #[id number], Supply, 180, cm, 09/12/23 13:35:00 EST, Height/Length Dosing, 149.8, kg, 09/12/23 13:35:00 EST, Weight Dosing Start: 09-16-2023 Insulin Pen Need les 31g x 8 mm, See Instructions, 450 EA, 4, Use up to 4 daily, [facility] #[id number], Supply, 180, cm, 09/12/23 13:35:00 EST, Height/Length Dosing, 149.8, kg, 09/12/23 13:35:00 EST, Weight Dosing Start: 09-16-2023 lancets, See Instructions, 100 EA, 11, test blood sugar tid dx E11.9 on insulin, [facility] #[id number], Supply, 180, cm, 09/12/23 13:35:00 EST, Height/Length Dosing, 149.8, kg, 09/12/23 13:35:00 EST, Weight Dosing Start: 09-16-2023 Glucometer test strips, See Instructions, 100 strip(s), 11, Test TID DX E11.40 on insulin, [facility] #[id number], Supply, 180, cm, 09/12/23 13:35:00 EST, Height/Length Dosing, 149.8, kg, 09/12/23 13:35:00 EST, Weight Dosing Start: 09-16-2023 Insulin Pen Need les 31g x 8 mm, See Instructions, 450 EA, 4, Use up to 4 daily, [facility] #[id number], Supply, 180, cm, 09/12/23 13:35:00 EST, Height/Length Dosing, 149.8, kg, 09/12/23 13:35:00 EST, Weight Dosing Start: 09-16-2023 lancets, See Instructions, 100 EA, 11, test blood sugar tid dx E11.9 on insulin, [facility] #[id number], Supply, 180, cm, 09/12/23 13:35:00 EST, Height/Length Dosing, 149.8, kg, 09/12/23 13:35:00 EST, Weight Dosing Start: 09-16-2023 Glucometer test strips, See Instructions, 100 strip(s), 11, Test TID DX E11.40 on insulin, [facility] #[id number], Supply, 180, cm, 09/12/23 13:35:00 EST, Height/Length Dosing, 149.8, kg, 09/12/23 13:35:00 EST, Weight Dosing Start: 09-16-2023 Insulin Pen Need les 31g x 8 mm, See Instructions, 450 EA, 4, Use up to 4 daily, [facility] #[id number], Supply, 180, cm, 09/12/23 13:35:00 EST, Height/Length Dosing, 149.8, kg, 09/12/23 13:35:00 EST, Weight Dosing Start: 09-16-2023 lancets, See Instructions, 100 EA, 11, test blood sugar tid dx E11.9 on insulin, [facility] #[id number], Supply, 180, cm, 09/12/23 13:35:00 EST, Height/Length Dosing, 149.8, kg, 09/12/23 13:35:00 EST, Weight Dosing Start: 09-16-2023 Glucometer test strips, See Instructions, 100 strip(s), 11, Test TID DX E11.40 on insulin, [facility] #[id number], Supply, 180, cm, 09/12/23 13:35:00 EST, Height/Length Dosing, 149.8, kg, 09/12/23 13:35:00 EST, Weight Dosing Start: 09-16-2023 Insulin Pen Need les 31g x 8 mm, See Instructions, 450 EA, 4, Use up to 4 daily, [facility] #[id number], Supply, 180, cm, 09/12/23 13:35:00 EST, Height/Length Dosing, 149.8, kg, 09/12/23 13:35:00 EST, Weight Dosing Start: 09-16-2023 lancets, See Instructions, 100 EA, 11, test blood sugar tid dx E11.9 on insulin, [facility] #[id number], Supply, 180, cm, 09/12/23 13:35:00 EST, Height/Length Dosing, 149.8, kg, 09/12/23 13:35:00 EST, Weight Dosing Start: 09-16-2023 Glucometer test strips, See Instructions, 100 strip(s), 11, Test TID DX E11.40 on insulin, [facility] #[id number], Supply, 180, cm, 09/12/23 13:35:00 EST, Height/Length Dosing, 149.8, kg, 09/12/23 13:35:00 EST, Weight Dosing Start: 09-16-2023 Insulin Pen Need les 31g x 8 mm, See Instructions, 450 EA, 4, Use up to 4 daily, [facility] #[id number], Supply, 180, cm, 09/12/23 13:35:00 EST, Height/Length Dosing, 149.8, kg, 09/12/23 13:35:00 EST, Weight Dosing Start: 09-16-2023 lancets, See Instructions, 100 EA, 11, test blood sugar tid dx E11.9 on insulin, [facility] #[id number], Supply, 180, cm, 09/12/23 13:35:00 EST, Height/Length Dosing, 149.8, kg, 09/12/23 13:35:00 EST, Weight Dosing Start: 09-16-2023 Glucometer test strips, See Instructions, 100 strip(s), 11, Test TID DX E11.40 on insulin, [facility] #[id number], Supply, 180, cm, 09/12/23 13:35:00 EST, Height/Length Dosing, 149.8, kg, 09/12/23 13:35:00 EST, Weight Dosing Start: 09-16-2023 Insulin Pen Need les 31g x 8 mm, See Instructions, 450 EA, 4, Use up to 4 daily, [facility] #[id number], Supply, 180, cm, 09/12/23 13:35:00 EST, Height/Length Dosing, 149.8, kg, 09/12/23 13:35:00 EST, Weight Dosing Start: 09-16-2023 lancets, See Instructions, 100 EA, 11, test blood sugar tid dx E11.9 on insulin, [facility] #[id number], Supply, 180, cm, 09/12/23 13:35:00 EST, Height/Length Dosing, 149.8, kg, 09/12/23 13:35:00 EST, Weight Dosing Start: 09-16-2023 Glucometer test strips, See Instructions, 100 strip(s), 11, Test TID DX E11.40 on insulin, [facility] #[id number], Supply, 180, cm, 09/12/23 13:35:00 EST, Height/Length Dosing, 149.8, kg, 09/12/23 13:35:00 EST, Weight Dosing Start: 09-16-2023 Insulin Pen Need les 31g x 8 mm, See Instructions, 450 EA, 4, Use up to 4 daily, [facility] #[id number], Supply, 180, cm, 09/12/23 13:35:00 EST, Height/Length Dosing, 149.8, kg, 09/12/23 13:35:00 EST, Weight Dosing Start: 09-16-2023 lancets, See Instructions, 100 EA, 11, test blood sugar tid dx E11.9 on insulin, [facility] #[id number], Supply, 180, cm, 09/12/23 13:35:00 EST, Height/Length Dosing, 149.8, kg, 09/12/23 13:35:00 EST, Weight Dosing Start: 09-16-2023 Glucometer test strips, See Instructions, 100 strip(s), 11, Test TID DX E11.40 on insulin, [facility] #[id number], Supply, 180, cm, 09/12/23 13:35:00 EST, Height/Length Dosing, 149.8, kg, 09/12/23 13:35:00 EST, Weight Dosing Start: 09-16-2023 Insulin Pen Need les 31g x 8 mm, See Instructions, 450 EA, 4, Use up to 4 daily, [facility] #[id number], Supply, 180, cm, 09/12/23 13:35:00 EST, Height/Length Dosing, 149.8, kg, 09/12/23 13:35:00 EST, Weight Dosing Start: 09-16-2023 lancets, See Instructions, 100 EA, 11, test blood sugar tid dx E11.9 on insulin, [facility] #[id number], Supply, 180, cm, 09/12/23 13:35:00 EST, Height/Length Dosing, 149.8, kg, 09/12/23 13:35:00 EST, Weight Dosing Start: 09-16-2023 Glucometer test strips, See Instructions, 100 strip(s), 11, Test TID DX E11.40 on insulin, [facility] #[id number], Supply, 180, cm, 09/12/23 13:35:00 EST, Height/Length Dosing, 149.8, kg, 09/12/23 13:35:00 EST, Weight Dosing Start: 09-16-2023 Insulin Pen Need les 31g x 8 mm, See Instructions, 450 EA, 4, Use up to 4 daily, [facility] #[id number], Supply, 180, cm, 09/12/23 13:35:00 EST, Height/Length Dosing, 149.8, kg, 09/12/23 13:35:00 EST, Weight Dosing Start: 09-16-2023 lancets, See Instructions, 100 EA, 11, test blood sugar tid dx E11.9 on insulin, [facility] #[id number], Supply, 180, cm, 09/12/23 13:35:00 EST, Height/Length Dosing, 149.8, kg, 09/12/23 13:35:00 EST, Weight Dosing Start: 09-16-2023 Glucometer test strips, See Instructions, 100 strip(s), 11, Test TID DX E11.40 on insulin, [facility] #[id number], Supply, 180, cm, 09/12/23 13:35:00 EST, Height/Length Dosing, 149.8, kg, 09/12/23 13:35:00 EST, Weight Dosing Start: 09-16-2023 Insulin Pen Need les 31g x 8 mm, See Instructions, 450 EA, 4, Use up to 4 daily, [facility] #[id number], Supply, 180, cm, 09/12/23 13:35:00 EST, Height/Length Dosing, 149.8, kg, 09/12/23 13:35:00 EST, Weight Dosing Start: 09-16-2023 lancets, See Instructions, 100 EA, 11, test blood sugar tid dx E11.9 on insulin, [facility] #[id number], Supply, 180, cm, 09/12/23 13:35:00 EST, Height/Length Dosing, 149.8, kg, 09/12/23 13:35:00 EST, Weight Dosing Start: 09-16-2023 Glucometer test strips, See Instructions, 100 strip(s), 11, Test TID DX E11.40 on insulin, [facility] #[id number], Supply, 180, cm, 09/12/23 13:35:00 EST, Height/Length Dosing, 149.8, kg, 09/12/23 13:35:00 EST, Weight Dosing Start: 09-16-2023 Insulin Pen Need les 31g x 8 mm, See Instructions, 450 EA, 4, Use up to 4 daily, [facility] #[id number], Supply, 180, cm, 09/12/23 13:35:00 EST, Height/Length Dosing, 149.8, kg, 09/12/23 13:35:00 EST, Weight Dosing Start: 09-16-2023 lancets, See Instructions, 100 EA, 11, test blood sugar tid dx E11.9 on insulin, [facility] #[id number], Supply, 180, cm, 09/12/23 13:35:00 EST, Height/Length Dosing, 149.8, kg, 09/12/23 13:35:00 EST, Weight Dosing Start: 09-16-2023 Glucometer test strips, See Instructions, 100 strip(s), 11, Test TID DX E11.40 on insulin, [facility] #[id number], Supply, 180, cm, 09/12/23 13:35:00 EST, Height/Length Dosing, 149.8, kg, 09/12/23 13:35:00 EST, Weight Dosing Start: 09-16-2023 Insulin Pen Need les 31g x 8 mm, See Instructions, 450 EA, 4, Use up to 4 daily, [facility] #[id number], Supply, 180, cm, 09/12/23 13:35:00 EST, Height/Length Dosing, 149.8, kg, 09/12/23 13:35:00 EST, Weight Dosing Start: 09-16-2023 lancets, See Instructions, 100 EA, 11, test blood sugar tid dx E11.9 on insulin, [facility] #[id number], Supply, 180, cm, 09/12/23 13:35:00 EST, Height/Length Dosing, 149.8, kg, 09/12/23 13:35:00 EST, Weight Dosing Start: 09-16-2023 Glucometer test strips, See Instructions, 100 strip(s), 11, Test TID DX E11.40 on insulin, [facility] #[id number], Supply, 180, cm, 09/12/23 13:35:00 EST, Height/Length Dosing, 149.8, kg, 09/12/23 13:35:00 EST, Weight Dosing Start: 09-16-2023 Insulin Pen Need les 31g x 8 mm, See Instructions, 450 EA, 4, Use up to 4 daily, [facility] #[id number], Supply, 180, cm, 09/12/23 13:35:00 EST, Height/Length Dosing, 149.8, kg, 09/12/23 13:35:00 EST, Weight Dosing Start: 09-16-2023 lancets, See Instructions, 100 EA, 11, test blood sugar tid dx E11.9 on insulin, [facility] #[id number], Supply, 180, cm, 09/12/23 13:35:00 EST, Height/Length Dosing, 149.8, kg, 09/12/23 13:35:00 EST, Weight Dosing Start: 09-16-2023 Glucometer test strips, See Instructions, 100 strip(s), 11, Test TID DX E11.40 on insulin, [facility] #[id number], Supply, 180, cm, 09/12/23 13:35:00 EST, Height/Length Dosing, 149.8, kg, 09/12/23 13:35:00 EST, Weight Dosing Start: 09-16-2023 Insulin Pen Need les 31g x 8 mm, See Instructions, 450 EA, 4, Use up to 4 daily, [facility] #[id number], Supply, 180, cm, 09/12/23 13:35:00 EST, Height/Length Dosing, 149.8, kg, 09/12/23 13:35:00 EST, Weight Dosing Start: 09-16-2023 lancets, See Instructions, 100 EA, 11, test blood sugar tid dx E11.9 on insulin, [facility] #[id number], Supply, 180, cm, 09/12/23 13:35:00 EST, Height/Length Dosing, 149.8, kg, 09/12/23 13:35:00 EST, Weight Dosing Start: 09-16-2023 Glucometer test strips, See Instructions, 100 strip(s), 11, Test TID DX E11.40 on insulin, [facility] #[id number], Supply, 180, cm, 09/12/23 13:35:00 EST, Height/Length Dosing, 149.8, kg, 09/12/23 13:35:00 EST, Weight Dosing Start: 09-16-2023 Insulin Pen Need les 31g x 8 mm, See Instructions, 450 EA, 4, Use up to 4 daily, [facility] #[id number], Supply, 180, cm, 09/12/23 13:35:00 EST, Height/Length Dosing, 149.8, kg, 09/12/23 13:35:00 EST, Weight Dosing Start: 09-16-2023 lancets, See Instructions, 100 EA, 11, test blood sugar tid dx E11.9 on insulin, [facility] #[id number], Supply, 180, cm, 09/12/23 13:35:00 EST, Height/Length Dosing, 149.8, kg, 09/12/23 13:35:00 EST, Weight Dosing Start: 09-16-2023 [id number] Start: 05-05-2024 End: 06-21-2025 Glucometer test strips, See Instructions, 100 strip(s), 11, Test TID DX E11.40 on insulin, [facility] #[id number], Supply, 180, cm, 09/12/23 13:35:00 EST, Height/Length Dosing, 149.8, kg, 09/12/23 13:35:00 EST, Weight Dosing Start: 09-16-2023 Insulin Pen Need les 31g x 8 mm, See Instructions, 450 EA, 4, Use up to 4 daily, [facility] #[id number], Supply, 180, cm, 09/12/23 13:35:00 EST, Height/Length Dosing, 149.8, kg, 09/12/23 13:35:00 EST, Weight Dosing Start: 09-16-2023 lancets, See Instructions, 100 EA, 11, test blood sugar tid dx E11.9 on insulin, [facility] #[id number], Supply, 180, cm, 09/12/23 13:35:00 EST, Height/Length Dosing, 149.8, kg, 09/12/23 13:35:00 EST, Weight Dosing Start: 09-16-2023 Glucometer test strips, See Instructions, 100 strip(s), 11, Test TID DX E11.40 on insulin, [facility] #[id number], Supply, 180, cm, 09/12/23 13:35:00 EST, Height/Length Dosing, 149.8, kg, 09/12/23 13:35:00 EST, Weight Dosing Start: 09-16-2023 Insulin Pen Need les 31g x 8 mm, See Instructions, 450 EA, 4, Use up to 4 daily, [facility] #[id number], Supply, 180, cm, 09/12/23 13:35:00 EST, Height/Length Dosing, 149.8, kg, 09/12/23 13:35:00 EST, Weight Dosing Start: 09-16-2023 lancets, See Instructions, 100 EA, 11, test blood sugar tid dx E11.9 on insulin, [facility] #[id number], Supply, 180, cm, 09/12/23 13:35:00 EST, Height/Length Dosing, 149.8, kg, 09/12/23 13:35:00 EST, Weight Dosing Start: 09-16-2023 Glucometer test strips, See Instructions, 100 strip(s), 11, Test TID DX E11.40 on insulin, [facility] #[id number], Supply, 180, cm, 09/12/23 13:35:00 EST, Height/Length Dosing, 149.8, kg, 09/12/23 13:35:00 EST, Weight Dosing Start: 09-16-2023 Insulin Pen Need les 31g x 8 mm, See Instructions, 450 EA, 4, Use up to 4 daily, [facility] #[id number], Supply, 180, cm, 09/12/23 13:35:00 EST, Height/Length Dosing, 149.8, kg, 09/12/23 13:35:00 EST, Weight Dosing Start: 09-16-2023 lancets, See Instructions, 100 EA, 11, test blood sugar tid dx E11.9 on insulin, [facility] #[id number], Supply, 180, cm, 09/12/23 13:35:00 EST, Height/Length Dosing, 149.8, kg, 09/12/23 13:35:00 EST, Weight Dosing Start: 09-16-2023 USE TO TEST BLOO D SUGARS THREE TIMES A DAY. [id number] Start: 12-05-2024 End: 03-13-2025 Pen Needle 31G x 6mm, See Instructions, 100 EA, 1, Pen Needle 31G x 6mm, [facility] #[id number], Supply, 182, cm, 12/20/24 13:40:00 EDT, Height/Length Dosing, 118.4, kg, 12/20/24 13:40:00 EDT, Weight Dosing Start: 12-21-2024 USE TO TEST BLOO D SUGARS THREE TIMES A DAY. [id number] Start: 03-13-2025 Goals Date Patient Goal Desired Activity /State 12-03-2019 Functional Status Date Assessment Result Facility 12-20-2024 Functional Status N/A [facility] 12-20-2024 Functional Status [facility] 12-04-2024 Patient Health Questionnaire 2 item (PHQ-2) [Reported] [facility] 12-02-2024 Functional Status N/A [facility] 07-09-2024 Functional Status N/A [facility] 06-23-2024 Functional Status N/A [facility] 02-28-2024 Functional Status N/A [facility] 02-09-2024 Functional Status N/A [facility] 01-15-2024 Functional Status N/A [facility] 11-20-2023 Functional Status N/A [facility] 11-17-2023 Functional status Patient is Pro gressing Toward Baseline [facility] Work Phone: 11-11-2023 Functional Status N/A [facility] 10-30-2023 Functional Status N/A [facility] 10-18-2023 Functional Status N/A [facility] 10-15-2023 Functional Status N/A [facility] 10-12-2023 Functional status Patient at Baseline [facility] Work Phone: 09-24-2023 Functional Status N/A [facility] 09-17-2023 Functional Status N/A [facility] 12-17-2023 Functional Status N/A [facility] 06-21-2023 Functional status Patient at Baseline [facility] Work Phone: 06-11-2023 Functional Status N/A [facility] 06-11-2023 Functional Status [facility] 05-22-2023 Functional Status N/A [facility] 05-08-2023 Functional Status No [facility] 09-13-2022 Functional Status N/A [facility] 08-04-2022 Functional Status N/A [facility] 03-29-2022 Functional Status N/A [facility] 03-08-2022 Functional Status N/A [facility] Mental Status Date Assessment Result Facility 11-17-2023 Cognitive function Cognitive Sta tus Patient at Baseline [facility] Work Phone: 10-12-2023 Cognitive function Cognitive Sta tus Patient at Baseline [facility] Work Phone: 06-21-2023 Cognitive function Cognitive Sta tus Patient at Baseline [facility] Work Phone: Clinical Notes 12-28-2021 to 03-24-2025 [...] working out. He thinks might be [place] [facility] 03-24-2025 Miscellaneous Notes Pt called into the office, he wants to cancel the nurse that is coming to his apartment. He said it is not working out. He thinks might be [place] documented in this encounter [facility] 03-13-2025 History of Present illness Narrative [...] Flowsheet Row Patient Outreach from 03/11/2025 in [facility] with Grecia Mcneil LPN Hospital Information ED, Hospital or Half-Way Facility Discharge? Hospital Patient has been contacted within two business days of discharge Yes Diagnosis Electorolyte abnormality from severe hyperglycemia, left leg cramps Discharge Date 03/07/25 Discharged To: Home Setting Discharge Hospital [facility] Engagement Admission Date 03/05/25 Medications Discharge [...] monitor. No change in regimen. Morbid obesity ([facility]) - continue to monitor weight BMI 38.0-38.9,adult Follow up if symptoms worsen or fail to improve. documented in this encounter [facility] 03-07-2025 Note Discharge Summary Admission and Discharge Information Admit Date/Time:03/05/2025 21:17 Admitting Physician - Jigna Suarez MD Admitting Diagnoses: 2. Type 2 diabetes mellitus [...] 2 days. He was subsequently admitted to [facility] with left leg muscle spasm secondary to [...] speech normal Ps (more content not included)... [facility] Comment on above: Result Comment: Elec tronically Signed By: NAHOMY LYMAN, Jordan\.br\Date and Time Signed: 03/07/25 09:36 EDT 03-06-2025 Note Interdisciplinary No te - PT PT Evaluation completed with an [facility] score of 22/24. Pt sitting EOB at entrance and was able to perform sit to stand transfers with Mod I. Pt was able to ambulate with FWW with no reports of leg pain. Did ambulate x 2 times with no LOB or pain. Pt would be functionally safe to return home with use of FWW as prior. No further PT services needed [facility] 03-06-2025 Note Progress Note-Physic abundio Assessment/Plan 65-year-old [...] hyperglycemia. Resolved. Was treated with orphenadrine. Ordered: [facility] Care/Day Moderate 35 Minutes 25668 2. Type 2 diabetes mellitus with hyperosmolar nonketotic hyperglycemia (E11.00: Type 2 diabetes mellitus with hyperosmolarity without nonketotic hyperglycemic-hyperosmolar coma ([facility])) Acute hyperosmolar nonketotic hyperglycemia???present on admission. Secondary to noncompliance with medication. Treated with IV insulin drip and IV fluid. Hemoglobin A1c 11.8%. Will start patient on long-acting insulin, regular insulin and sliding scale insulin. Ordered: [facility] Hospital Care/Day Moderate 35 Minutes [id number] 3. Pseudohyponatremia (R79.89: Other specified abnormal findings of blood chemistry) Secondary to hypoglycemia. Resolved. Ordered: [facility] Care/Day Moderate 35 Minutes 30642 4. CKD (chronic kidney disease) (N18.9: Chronic kidney disease, unspecified) Chronic kidney disease stage III???back to baseline. Ordered: [facility] Care/Day Moderate 35 Minutes 20488 5. Hypertension (I10: Essential (primary) hypertension) Blood [...] made to ensure accuracy. However inadvertent computerized realtime court reporter errors may be present. Jordan Macario. Hospitalist. [...] no deformity. Gastrointestin (more content not included)... [facility] Comment on above: Result Comment: [...] 20:15:00) Lymph Auto: 17.9 % (03/05/25 20:15:00) Traill Auto: 6.5 % (03/05/25 20:15:00) Eos Auto: 2.4 % (03/05/25 20:15:00) Basophil Auto: 0.9 % (03/05/25 20:15:00) Neutro Absolute: 5 E9/L (03/05/25 20:15:00) Lymph Absolute: 1.2 E9/L (03/05/25 20:15:00) Traill Absolute: 0.4 E9/L (03/05/25 20:15:00) Eos Absolute: 0.2 E9/L (03/05/25 20:15:00) Basophil Absolute: 0.1 E9/L (03/05/25:15:00) Glucose Lvl: 1084 mg/dL Critical (03/05/25 20:15:00) [...] (03/05/25 20:15:00) B (more content not included)... [facility] Comment on above: Result Comment: Elec tronically Signed By: Erick LYMAN, Jigna\.br\Date and Time Signed: 03/05/25 23:22 EDT 02-05-2025 History of Present illness Narrative Images from the original note were not included. Subjective Patient ID: Nicole Lora is a 65 y.o. male who presents for No chief complaint on file.. HPI Pt here for follow up. Has been working with [employer] for possible scooter. States they have been [...] Systems General: Denies fever, chills, fatigue, MINER or weight loss/gain CV: Denies CP, palpitations [...] weakness, bilateral - Continue to work with [employer] Essential (primary) hypertension Stable, continue to monitor. No change in regimen. Difficulty walking - as above Type 2 diabetes mellitus with hyperglycemia, with long-term current use of insulin (HCC) - continue to follow w/ endocrinology Long-term insulin use (HCC) Morbid obesity ([facility]) - continue to monitor weight BMI 36.0-36.9,adult documented in this encounter [facility] 02-05-2025 Telephone encounter Note Brittani from called and stated that he's been unbalanced, having a hard time sleeping, his blood sugar is at 155. Pt states that is too low for him. [facility] 02-05-2025 Miscellaneous Notes Brittani from called and stated that he's been unbalanced, having a hard time sleeping, his blood sugar is at 155. Pt states that is too low for him. documented in this encounter [facility] 12-25-2024 History of Present illness Narrative [...] Toujeo to 25 units bid; NovoLog to 1518-20 as a base, plus scale #3, Jentadueto 2.12/999 mg twice a day. IM :07/2023 follow up visit on 08/10/2023 bg 192, on Toujeo to 45 units at bedtime; NovoLog to 15-20 as a base, plus scale #3, Jentadueto [...] mg, Every 24 hours Continuous Blood Gluc Shoemaker Apprentice (FreeStyle Sage 3 [place]) device 1 each, Does not apply, Continuous Continuous Blood Gluc Sensor (FreeStyle Sage 3 Sensor) misc 1 each, Does not apply, Every 14 days doxycycline (VIBRAMYCIN) 100 mg, 2 times daily DULoxetine (CYMBALTA) 60 mg, Daily Fiasp FlexTouch 100 UNIT/ML injection inject PLUS ISS #2 (EXPECT DAILY DOSE OF 80 UNITS) gabapentin (NEURONTIN) 600 mg, Oral, 3 times daily glucose blood (RiplTouch Verio) test strip USE TO TEST BLOOD [...] History: Diagnosis Date Acute hypoxemic respiratory failure ([facility]) Acute on chronic respiratory failure with hypercapnia ([facility]) AMY (acute kidney injury) ([facility]) Arthritis Asthma Cataract Chronic kidney disease, stage 3b ([facility]) ([facility] Diabetes ([facility]) Diabetes mellitus with neuropathy ([facility]) Dietary counseling and surveillance Dry eyes GERD (gastroesophageal reflux disease) Hypertension ([facility]) Lymphedema of both lower extremities 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 mellitus ([facility]) Morbid obesity with body mass index (BMI) of 40.0 to 49.9 ([facility]) Onychomycosis Pneumonia 06/19/2024 [facility] (pulmonary valve disease) Type 2 diabetes mellitus with hyperglycemia ([facility]) Vitamin D deficiency, unspecified Past Surgical History: [...] hyperglycemia, with long-term current use of insulin ([facility]) - gabapentin (Neurontin) 600 MG tablet; Take [...] 3 times a day. Insulin long-term use ([facility]) Vitamin D deficiency Encounter for dietary consultation Hyperlipemia, mixed ([facility]) Primary hypertension ([facility]) Follow up in about 6 months (around 06/27/2025). documented in this encounter [facility] 12-21-2024 Hospital Discharge instructions Patient Education [...] concerns. Where to find more information The [place] [employer]: diabetes.org The Association of Diabetes [...] provider. Document Revised: 06/23/2023 Document Reviewed: 06/23/2023 [employer] Patient Education 2023 [employer]. 12/21/2024 14:26:35 Correction Insulin Correction Insulin Correction [...] vacation, changing your diet, or holidays. ?New jyfo-wro-bgqbscu or prescription medicines. ?Illness, stress, or anxiety. [...] provider. Document Revised: 08/12/2021 Document Reviewed: 08/12/2021 [employer] Patient Education 2023 [employer]. 12/21/2024 14:25:51 Diabetic Neuropathy Diabetic Neuropathy Diabetic [...] provider. Document Revised: 12/17/2020 Document Reviewed: 12/17/2020 [employer] Patient Education 2023 [employer]. Follow Up Care 12/20/2024 13:30:13 With:KAYLA SWEENEY Address: [address], [address] [place] [address]- Business (1) When: Unknown Comments:Follow as scheduled in December 2024 With:Mounika Brooke Address: [address] [place] [address]- Business (1) When:7 to 10 days Comments:Call for followup appointment [facility] 12-21-2024 Note Discharge Summary Admission and [...] 3rd toes, and hypertension who presented to [facility], ER with chief complaint of left leg [...] he has not picked up from his pump installer yet. His glucose was slowly improving with [...] losartan, which I confirmed he has with [facility] Refilled glucometer, test strips, lancets???confirmed with [facility] that they can fill this and his [...] defer management of his diabetes to his pump installer if he is compliant with follow-up. He [...] no tenderness Eye (more content not included)... [facility] Comment on above: Result Comment: Elec tronically Signed By: Toni Gutierrez III, DO\.samir\Date and Time Signed: 12/21/24 14:44 EDT 12-21-2024 [...] TID With When Contact Information KAYLA SWEENEY [address], [address] [place] [address]- Business (1) Additional Instructions: Follow as scheduled in December 2024 Mounika Brooke Within 7 to [address] [place] [address]- Business (1) Additional Instructions: Call for followup [...] 3rd toes, and hypertension who presented to [facility] ER with chief complaint of left leg [...] August 2024. Follows with Dr. Sweeney in [place] Status post 2 L IV fluid bolus [...] Panel Initial Hospital Care/Day Moderate 55 Minutes 13857 2. Leg muscle spasm (M62.838: Other muscle [...] state. Recommend weight loss. Defer to his pump installer to ensure is well versed in therapies [...] for DVT prophylaxis. Extracted from: Title:ED Note Author:Greyson ENGLE, Paddy Bustos te:12/20/24 1. Hyperglycemia (R73.9: Hyp erglycemia, unspecified) [...] BID, # 20 cap(s), Refills(s) 0, Pharmacy: [facility] #[id number], 183, cm, 06/23/24 13:45:00 EST, Height/Length Dosing, [...] with Cult Rflx XR Chest Single View [facility] 05-03-2025 NoteInterdisciplinary Note - PT PT [...] future falls. Will continue to follow while inpatient.[facility]05-03-2025 NoteInterdisciplinary Note - OT Pt is seen this date for OT evaluation. AMPAC score: 20/24. pt presents with ability to complete functional transfers and short mobility at CGA level with FWW for support, limited by spasms behind L knee, and decreased activity tolerance. OT to continue to follow for treatment. Recommending HH atd/c.[facility]05-02-2025 NoteHistory and Physical Chief Complaint pt. c/o [...] 3rd toes, and hypertension who presented to [facility], with chief complaint of left leg spasms.He [...] confusion. He states that he follows with pump installer Dr. Sweeney in [place]. He states that he only takes insulin, [...] 6.2 E9/L (12/20/24 1 (more content not included)...[facility]Result Comment: Electronically Signed By: Toni Gutierrez III, DO.br\Date and Time Signed: 12/20/24 19:04 [id number] NoteED Patient Education Note Endocrinology Hyperglycemia Hyperglycemia [...] instructions at home: General instructions ??? Take fzgc-ukk-loxpnwt and prescription medicines only as told by [...] need help with this (more content not included)...[facility]04-30-2025 History of Present illness Narrative* Mone Mcguire, PT - 12/18/2024 1:00 PM EDT Reason for Appointment 1.W/c assessment with [facility] upon referral from Grace Brooke MD [...] notes on w/c assessment documented in this encounterResearch [facility] [id number] Telephone encounter Note* Telephone Encounter - Cooper Bradford - 12/10/2024 1:35 PM EDT [facility] He stopped in office to Pt is in need of a chair, there is no note added in the last office visit could that be added to the note. He should be seen next week unless he answers his phone today. [facility] [id number] Miscellaneous Notes* Telephone Encounter - Cooper Bradford - 12/10/2024 1:35 PM EDT [facility] He stopped in office to Pt is in need of a chair, there is no note added in the last office visit could that be added to the note. He should be seen next week unless he answers his phone today. documented in this encounterResearch Psychiatric [id number] History of Present illness Narrative* Mounika Brooke [...] Flowsheet Row Patient Outreach from 12/04/2024 in [facility] with Kristi Canales LPN Hospital Information ED, Hospital or Half-Way Facility Discharge? ED Patient has been contacted within 2 days of being seen in the ED Yes Diagnosis Hyperglycemic, Bronchitis Discharge Date 12/02/24 [Left AMA] Discharged To: Home Setting Discharge [facility] Engagement Call Start Time 0940 Admission Date [...] Review of Systems General: Denies fever, chills, MINER or weight loss/gain CV: Denies CP, palpitations [...] diabetes mellitus with diabetic chronic kidney disease ([facility]/HCC) Chronic kidney disease, stage 3b (HCC) (CMS/HCC) Essential (primary) hypertension ([facility]/HCC) Acquired absence of left foot ([facility]/HCC) Reviewed ED course with pt. Encouraged pt to continue medications as prescribed. No changes in chronic medications. Encouraged continued follow up with specialists. Due to weakness and difficulty walking, discussed need for further assistance. Follow up if symptoms worsen or fail to improve. documented in this encounterResearch Psychiatric [id number] Hospital Discharge instructions Patient Education 12/02/2024 15:24:12 [...] condition. Follow these instructions at home: Take uczo-hxt-pzdiuvr and prescription medicines only as told by [...] and water are not available, use hand fuse cutter. Avoid contact with people who have cold [...] it is easier to cough up. Take pvts-wdp-jtwshwc and prescription medicines only as told by [...] provider. Document Revised: 11/17/2022 Document Reviewed: 12/08/2021 [employer] Patient Education 2023 [employer]. 12/02/2024 15:24:12 Type 2 Diabetes Mellitus, Self-Care, Adult, Gmlb-oc-Jelf Type 2 Diabetes Mellitus, Self-Care, Adult When [...] tell you how to do this. Take tmax-hbt-zwhsjwr and prescription medicines only as told by [...] for cuts, bruises, redness, blisters, or sores. [place] your teeth and gums two times a [...] more information about diabetes, please go to: [place] [employer]: www.diabetes.org [place] [employer] of Diabetes Care and Education Specialists: [...] provider. Document Revised: 11/01/2021 Document Reviewed: 11/01/2021 [employer] Patient Education 2023 [employer]. 12/02/2024 15:24:12 Hyperglycemia Hyperglycemia Hyperglycemia occurs when [...] these instructions at home: General instructions Take fdnl-zwq-adeqwor and prescription medicines only as told by [...] alert jewelry. Where to find more information [employer]: www.diabetes.org Contact a health care [...] provider. Document Revised: 05/20/2021 Document Reviewed: 05/21/2021 [employer] Patient Education 2023 [employer]. Follow Up Care 12/02/2024 12:36:28 With:Mounika Brooke Address: [address] [place] [address]- Business (1) When:12/05/2024 15:08:13 Comments:Call for diagnosis based follow up [facility] 04-14-2025 NoteED Patient Education Note Endocrinology [...] you how to do this. ??? Take efkb-hcf-telrbmt and prescription medicines only as told by [...] mL), one 5 oz (more content not included)...[facility]01-15-2025 History of Present illness Narrative* Kayla Sweeney [...] twice a day. Blood sugar in our [id number]; A1C 11. SUBJECTIVE: MEDICATIONS: Current Outpatient Medications Medication Instructions albuterol HFA 90 mcg/act inhaler 2 puffs, Every 4 hours PRN amLODIPine (Norvasc) 10 MG tablet 1 tablet, Daily atorvastatin (LIPITOR) 40 mg, Every 24 hours Continuous Blood Gluc Shoemaker Apprentice (FreeStyle Sage 3 Fre[place]) device 1 each, Does not apply, Continuous [...] History: Diagnosis Date Acute hypoxemic respiratory failure ([facility]) Acute on chronic respiratory failure with hypercapnia ([facility]) AMY (acute kidney injury) ([facility]) Arthritis Asthma ([facility]) Cataract Chronic kidney disease, stage 3b (HCC) ([facility]) Diabetes ([facility]) Diabetes mellitus with neuropathy ([facility]) Dietary counseling and surveillance Dry eyes GERD (gastroesophageal reflux disease) Hypertension ([facility]) Lymphedema of both lower extremities 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 ([facility]) Morbid obesity with body mass index (BMI) of 40.0 to 49.9 ([facility]) Onychomycosis Pneumonia 06/19/2024 [facility] PVD (pulmonary valve disease) Type 2 diabetes mellitus with hyperglycemia ([facility]) Vitamin D deficiency, unspecified Past Surgical History: [...] 3 months (around 12/03/2024). documented in this encounterResearch Psychiatric [id number] Telephone encounter Note* Telephone Encounter - Mounika Brooke MD - 08/06/2024 10:26 AM EST Ok to send [facility] Psychiatric [id number] Miscellaneous Notes* Telephone Encounter - Mounika Brooke MD - 08/06/2024 10:26 AM EST Ok to send * Telephone Encounter - Cooper Bradford - 08/06/2024 8:48 AM EST [facility] called they need this information sent for to them for the Referral on the Hyperbaric Oxygen Treatment A1C, pvr, and last 30day of notes on the wound Please send to fax [phone] to [facility] documented in this encounterResearch Psychiatric CenterQunfsvmgmi52-69-4387 Telephone encounter Note* Telephone Encounter - Cooper Bradford - 08/06/2024 8:48 AM EST [facility] called they need this information sent for to them for the Referral on the Hyperbaric Oxygen Treatment A1C, pvr, and last 30day of notes on the wound Please send to fax [phone] to [place] [facility] Psychiatric CenterEcncwqonzs07-73-7867 NoteTime Out 07/22/2024. 3:03 PM. Confirmed correct patient, procedure, site, and patient consented. Anesthesia Topical anesthesia was used. Anesthetic medications included Proparacaine 0.5%. Procedure Preparation included 5% betadine to ocular surface. A 30 gauge needle was used. Injection: 0.3 mg ranibizumab 0.3 MG/0.05ML Route: Intravitreal, Site: Left Eye [facility]: 24114-074-46, Lot: [id number], Expiration date: 04/29/2026, Waste: 0 mL Post-op [...] with increased pain, redness, decreased vision or concerns.Research Psychiatric CenterIwlarfiswz46-37-2713 History of Present illness Narrative* Perlita Meeks MD - 07/22/2024 2:15 PM EST Assessment/Plan documented in this encounterResearch Psychiatric [id number] History of Present illness Narrative* Kayla Sweeney [...] twice a day. Blood sugar in our [id number]; A1C 11. SUBJECTIVE: MEDICATIONS: Current Outpatient Medications Medication Instructions albuterol HFA 90 mcg/act inhaler 2 puffs, Every 4 hours PRN atorvastatin (LIPITOR) 40 mg, Every 24 hours Continuous Blood Gluc Shoemaker Apprentice (NonWoTecc MedicalStyle Sage 3 Freeland) device 1 each, Does not apply, Continuous [...] History: Diagnosis Date Acute hypoxemic respiratory failure ([facility]) Acute on chronic respiratory failure with hypercapnia ([facility]) AMY (acute kidney injury) ([facility]) Arthritis Asthma ([facility]) Cataract Chronic kidney disease, stage 3b (HCC) ([facility]) Diabetes ([facility] Diabetes mellitus with neuropathy ([facility]) Dry eyes GERD (gastroesophageal reflux disease) Hypertension ([facility]) Lymphedema of both lower extremities 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 documented in this encounterResearch Psychiatric CenterFhoqysmdsh21-12-6089 History of Present illness Narrative* Mounika Brooke [...] Flowsheet Row Office Visit from 07/11/2024 in [facility] with Mounika Brooke MD Hospital Information ED, Hospital or Half-Way Facility Discharge? ED Patient has been contacted within 1 week of being seen in the ED Yes Discharge Date 07/09/24 Discharged To: Home Setting Discharge [facility] Admission Date 07/09/24 Medications Discharge medications [...] of Systems General: Denies fever, chills, fatigue, MINRE or weight loss/gain CV: Denies CP, palpitations [...] No follow-ups on file. documented in this encounterResearch Psychiatric CenterJembjpqzzb63-63-0921 Hospital Discharge instructions Patient Education 07/09/2024 16:21:24 [...] told by your health care provider. Take ucne-iwc-oowhndp and prescription medicines only as told by [...] provider. Document Revised: 04/14/2022 Document Reviewed: 04/14/2022 [employer] Patient Education 2023 QuickGifts. Follow Up Care 07/09/2024 14:36:54 With:Zak Quiñones Address: [address] [place] [address]- Business (1) When:07/12/2024 16:10:31 [facility] 11-19-2024 NoteED Patient Education Note Orthopedics [...] by your health care provider. ??? Take gcod-kjb-bdhofnf and prescription medicines only as told by [...] (compression), and elevatingthe are (more content not included)...[facility]11-19-2024 Evaluation + Plan noteExtracted from: Title:ED Note Author:Rudi ENGLE, Jesus Bustos te:07/09/24 Left shoulder pain (M25.512: Pain in left shoulder) Tendinitis (M77.9: Enthesopathy, unspecified) Ordered: acetaminophen-oxycodone, 1 tab(s), Oral, q6hr as needed for pain for 3 day(s), 10 tab(s), Refill(s) 0, [facility][id number], 183, cm, 07/09/24 14:44:00 EST, Height/Length Dosing, 132.4, kg, 07/09/24 14:44:00 EST, Weight Dosing Orders: acetaminophen-oxycodone, 1 tab(s), Tab, Oral, Once, Stop date 07/09/24 15:01:00 EST, STAT, Start date 07/09/24 15:01:00 EST Apply Sling XR Shoulder Complete Right Future Appointments Appointment Date:09/04/2024 03:15:00 PM Scheduled Provider:Taz THOMAS MD Location:[facility] Appointment Type:URO Office Visit [facility] 11-13-2024 History of Present illness Narrative* Mounika Brooke MD - 07/03/2024 12:40 PM EST Images from the original note were not included. Patient: Nicole Lora : 1960 PCP: Mounika Boroke MD Nicole Lora is a 64 y.o. male presenting today for follow-up after being seen in ED. The main problem requiring evaluation was PNA, rib contusion. The discharge summary and/or Transitional Care Management documentation was reviewed. Medication reconciliation was performed as indicated via the Raghu as Reviewed timestamp. Flowsheet Row Documentation from 06/25/2024 in [facility] with Mary Alice Fortune MA Hospital Information ED, Hospital or Half-Way Facility Discharge? ED Patient has been contacted within 1 week of being seen in the ED Yes Diagnosis Pneumonia Discharge Date 06/23/24 Discharged To: Home Setting Discharge Hospital [facility] Engagement Admission Date 06/23/24 Medications Discharge [...] chills, fatigue, MINER CV: Denies CP, palpitations Resp: denies cough, [...] or fail to improve. documented in this encounterResearch Psychiatric CenterEddpwfmoio78-73-4203 Telephone encounter Note* Telephone Encounter - HARPAL Barnes - 06/24/2024 11:07 AM EST Ok reviewed and we discussed at visit to try to get an earlier appt or talk with Dr. Murray staff [facility] Psych[facility] [id number] Miscellaneous Notes* Telephone Encounter - HARPAL Barnes [...] as soon as possible? documented in this encounterResearch Psychiatric CenterQnhrepdxfn82-71-2742 Telephone encounter Note* Telephone Encounter - Suzanna Smith MA - 06/24/2024 10:28 AM EST Patient is currently scheduled to see Dr. Sweeney 07-15-2024. [facility] Psychiatric CenterXkneqkjgwt36-36-4542 Telephone encounter Note* Telephone Encounter - HARPAL Barnes - 06/24/2024 8:37 AM EST Please call patient I see he was in ER and diagnosed with pneumonia however his hgba1c was 14 and Iwanted to see if he made appt to see Dr. Murray as soon as possible? Research Psychiatric CenterWhfcftleza17-35-2356 Hospital Discharge instructions Patient Education 06/23/2024 14:01:17 Community-Acquired Pneumonia, Adult, Vdqy-dg-Htye Community-Acquired Pneumonia, Adult Pneumonia is an infection [...] Follow these instructions at home: Medicines Take rgxw-vpl-jpvbvjj and prescription medicines only as told by [...] cannot use soap and water, use hand fuse cutter. Contact a doctor if: You have a [...] provider. Document Revised: 10/05/2022 Document Reviewed: 10/05/2022 [employer] Patient Education 2023 [employer]. 06/23/2024 14:01:17 Rib Contusion Rib Contusion A [...] risk for lung collapse and pneumonia. Medicines. Smmz-vhf-cexbemy or prescription medicines may be given to control pain. Injection of a numbing medicine around the nerve near your injury (nerve block). Follow these instructions at home: Medicines Take culb-ygg-inogtnv and prescription medicines only as told by your health care provider. Ask your health care provider if the medicine prescribed to you: ?Requires you to avoid driving or using machinery. ?Can cause constipation. You may need to take these actions to prevent or treat constipation: ?Drink enough fluid to keep your urine pale yellow. ?Take iekb-pbi-olusyls or prescription medicines. ?Eat foods that are [...] provider. Document Revised: 11/11/2020 Document Reviewed: 11/11/2020 [employer] Patient Education 2023 [employer]. Follow Up Care 06/23/2024 13:38:04 With:Mounika Brooke Address: [place] [place] [address] Business (1) When:06/26/2024 13:54:07 Comments:Call for diagnosis based follow up [facility] 11-03-2024 NoteED Patient Education Note Infectious [...] these instructions at home: Medicines ??? Take jukj-tmz-zjjusgj and prescription medicines only as told by [...] cannot use soap and water, use hand fuse cutter. Contact a doctor if: ??? You have [...] lungs. ??? Community-acquired pneumonia (more content not included)...[facility]11-03-2024 Evaluation + Plan noteExtracted from: Title:ED Note Author:Greyson ENGLE, Paddy Bustos te:06/23/24 Contusion of rib on left [facility] (S20.212A: Contusion of left front wall of thorax, initial encounter) Pneumonia (J18.9: Pneumonia, unspecified organism) Orders: acetaminophen-oxycodone, 1 tab(s), Oral, q6hr for pain for 3 day(s), 12 tab(s), Refill(s) 0, [facility] #[id number], 183, cm, 06/23/24 13:45:00 EST, Height/Length Dosing, 143, kg, 06/23/24 13:45:00 EST, Weight Dosing doxycycline, 100 mg = 1 cap(s), Oral, BID, # 20 cap(s), Refills(s) 0, Pharmacy: [facility] #[id number], 183, cm, 06/23/24 13:45:00 EST, Height/Length Dosing, 143, kg, 06/23/24 13:45:00 EST, Weight Dosing Future Appointments Appointment Date:09/04/2024 03:15:00 PM Scheduled Provider:Taz THOMAS MD Location:[facility] Appointment Type:URO Office Visit [facility] 11-01-2024 History of Present illness Narrative* [...] He has an upcoming appointment with his pump installer, Dr. Sweeney. ALLERGIES He is allergic to PENICILLIN. MEDICATIONS: Current Outpatient Medications Medication Instructions albuterol HFA 90 mcg/act inhaler 2 puffs, Every 4 hours PRN atorvastatin (LIPITOR) 40 mg, Every 24 hours Continuous Blood Gluc Shoemaker Apprentice (FreeStyle Sage 3 Freeland) device 1 each, Does not apply, Continuous [...] Systems General: Denies fever, chills, fatigue, MINER or weight loss/gain CV: Denies CP, palpitations [...] He is advised to consult with his pump installer, Dr. Sweeney, regarding his elevated blood sugar [...] needles has been renewed and sent to [facility]. Assessment/Plan Problem List Items Addressed This Visit Chronic cough Relevant Orders XR chest 2 views Type 2 diabetes mellitus with hyperglycemia (CMS/HCC) - Primary Relevant Medications pen needle 31G [...] Influenza Vaccine (1) 04/21/2024 documented in this encounterResearch Psychiatric CenterHxgfoowmpx99-16-6073 NoteTime Out 05/22/2024. 2:41 PM. Confirmed correct patient, procedure, site, and patient consented. Anesthesia Topical anesthesia was used. Anesthetic medications included Lidocaine 2%, Proparacaine 0.5%. Procedure Preparation included 5% betadine to ocular surface, eyelid speculum. Injection: 0.3 mg ranibizumab 0.3 MG/0.05ML Route: Intravitreal, Site: Left Eye ND: 43217-405-84, Lot: [id number], Expiration date: 04/29/2026, Waste: 0 mL Post-op [...] with increased pain, redness, decreased vision or concerns.Research Psychiatric CenterXnkomlbgrc25-14-4619 History of Present illness Narrative* PEDRO PABLO Her - 05/22/2024 2:00 PM EDT Images from the original note were not included. 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 Can we help with this Research Psychiatric CenterLrlqcunvgi17-50-1487 Miscellaneous Notes* Telephone Encounter - Mounika Brooke MD - 04/29/2024 2:53 PM EDT Pt has at home oxygen - would benefit from portable oxygen. Can we help with this documented in this encounterResearch Psychiatric CenterHjdkeippzz65-05-6756 History of Present illness Narrative* Mounika Brooke [...] at the same time. Continuous Blood Gluc Shoemaker Apprentice (FreeStyle Sage 3 Freeland) device 1 each continuously 1 each 0 [...] Systems General: Denies fever, chills, fatigue, MINER or weight loss/gain CV: Denies CP, palpitations [...] retinopathy associated with type 2 diabetes mellitus ([facility]) Encouraged follow up with optho Diabetic neuropathy ([facility]) Stable, continue to monitor. No change in regimen. Gastroesophageal reflux disease Stable, continue to monitor. No change in regimen. Hyperlipidemia ([facility]) Stable, continue to monitor. No change in regimen. Hypertension ([facility]) Stable, continue to monitor. No change in regimen. Long-term insulin use ([facility]) Morbid obesity ([facility]) - continue to monitor weight Restless leg syndrome Currently uncontrolled as pt is out of meds. Refill sent of increased dose Stage 3b chronic kidney disease (HCC) ([facility]) Stable, continue to monitor. No change in regimen. Type 2 diabetes mellitus with hyperglycemia ([facility]) - Uncontrolled, A1c > 13 - encouraged follow up with endo Varicose veins of lower extremity Continue to follow w/ vascular TC (obstructive sleep apnea) Stable, continue to monitor. No change in regimen. Chronic hypoxemic respiratory failure ([facility]) Stable, continue to monitor. No change in regimen. Acute on chronic respiratory failure with hypoxia and hypercapnia ([facility]) Stable, continue to monitor. No change in regimen. Discussed concerning sx to monitor for. Continue oxygen use - pt would benefit from portable oxygen Obesity hypoventilation syndrome ([facility]) Other Visit Diagnoses Encounter for Medicare annual wellness exam - Primary RLS (restless legs syndrome) Relevant Medications rOPINIRole (Requip) 2 MG tablet Oxygen dependent BMI 40.0-44.9, adult ([facility]) The following health maintenance schedule was reviewed [...] placed in this encounter. documented in this encounterResearch Psychiatric CenterTcwkrzqxxq68-43-1045 NoteTime Out 04/23/2024. 11:05 AM. Confirmed correct patient, procedure, site, and patient consented. Anesthesia Topical anesthesia was used. Anesthetic medications included Lidocaine 2%, Proparacaine 0.5%. Procedure Preparation included 5% betadine to ocular surface, eyelid speculum. Injection: 0.3 mg ranibizumab 0.3 MG/0.05ML Route: Intravitreal, Site: Left Eye [facility]: 22481-937-64, Lot: [id number], Expiration date: 04/29/2026, Waste: 0 mL Post-op [...] with increased pain, redness, decreased vision or concerns.[facility] Psychiatric CenterRtyqzwdhns37-83-2782 History of Present illness Narrative* Perlita Meeks MD - 04/23/2024 10:45 AM EDT Assessment/Plan documented in this encounterResearch Psychiatric CenterWhoerdeydt28-05-7617 History of Present illness Narrative* Perlita Meeks MD - 04/15/2024 2:30 PM EDT Assessment/Plan begin anti vegf documented in this encounterResearch Psychiatric CenterMldcchbtdj74-82-4467 Hospital Discharge instructions Follow Up Care 02/28/2024 08:07:26 With:MARTHA LYMAN, Taz Abraham, MICH Address: [address] [place] [address]- When: Unknown [facility] 07-10-2024 Hospital Discharge instructions Patient Education [...] urethra. Follow these instructions at home: Take snxz-dle-mpbjvej and prescription medicines only as told by [...] provider. Document Revised: 02/23/2022 Document Reviewed: 02/23/2022 [employer] Patient Education 2022 [employer]. Follow Up Care 02/05/2024 13:59:39 With:MARTHA LYMAN, Taz Abraham, URL Address: [facility] [address] [address]- When: Unknown [facility] 06-17-2024 Hospital Discharge instructions Patient Education [...] Care 11/20/2023 14:00:17 With:Taz THOMAS Address: [address] [facility] (1) When: Unknown Comments:Please arrange for a follow-up next week so we can remove your catheter for a voiding trial.Some discharge instructions have been provided.Push fluids to keep the urine clear. [facility]06-17-2024 Note [id number]#1.00[facility] 01-15-2024 Hospital Discharge instructions Patient Education [...] provider. Document Revised: 10/27/2021 Document Reviewed: 07/23/2021 [employer] Patient Education 2021 [employer]. Follow Up Care 01/15/2024 16:18:08 With:RIED BROOKE Address: [address] [place], [place] [phone] [facility] (1) When:Within 3 Day(s) [facility]04-04-2024 NoteHNO ID: [id number] Author: ESAU TRUONG APRN.MO Service: ? Author Type: Nurse Specialist Type: Progress Notes Filed: 11/29/2023 07:04 Note Text: [facility] RESIDENTIAL NOTE NAME: NICOLE LORA [facility] NO.: [id number] DATE OF SERVICE: 11/23/2023 ATTENDING PHYSICIAN: MO Yip [facility] Chart Note REASON FOR VISIT: The patient is a resident of [facility]. This is a skilled visit for [...] Humalog per sliding scale. DICTATED BY: MO Yip/MARCIA JOB# [id number] [facility]04-04-2024 History of Present illness Narrative* Esau Truong APRN.MO - 11/23/2023 12:00 AM EDT [facility] NOTE NAME: NICOLE LORA [facility] NO.: [id number] DATE OF SERVICE: 11/23/2023 ATTENDING PHYSICIAN: MO Yip [facility] Chart Note REASON FOR VISIT: The patient is a resident of [facility]. This is a skilled visit for COPD with respiratory failure history and other medical concerns. Upon entering [facility], found the patient calm, alert, sitting in bed. The patient just completed morning meal. The patient does not appear to be in distress or discomfort. The patient states feels well today. [facility] has been working with therapy and [...] sliding scale. DICTATED BY: MO Yip/SUSYT JOB# [id number] [facility] documented in this encounterKindred [facility]04-[facility]-2024 Evaluation + Plan note Extracted from: Title:HOPD visit Author:Taz THOMAS MD Date: 11/20/23 Impression and Plan Assessment and Plan: Diagnosis: BPH with obstruction/lower urinary tract symptoms (FLI71-AU N40.1, Billing Diagnosis, Medical), Other obstructive and reflux uropathy (IHJ69-WF N13.8, Discharge, Medical), Feeling of incomplete bladder emptying (VYN65-GI R39.14, Billing Diagnosis, Medical), Urinary retention (JYG47-MR R33.9, Billing Diagnosis, Medical). Additional Plan of [...] FT Appointment Date:02/05/2024 01:15:00 PM Scheduled Provider: Location:[facility] Appointment Type:Urology FT Future Scheduled Tests Radiology* XR Chest 2 Views 05/15/23 * XR Chest 2 Views 05/15/23 [facility]04-01-2024 NoteHNO ID: [id number] Author: ALVARO HERRERA, ? Service: ? Author Type: Physician Type: Progress Notes Filed: 11/22/2023 11:38 Note Text: [facility] NOTE NAME: NICOLE LORA [facility] NO.: [id number] DATE OF SERVICE: 11/20/2023 ATTENDING PHYSICIAN: Alvaro Herrera MD [facility] PATIENT HISTORY AND PHYSICAL: HISTORY OF PRESENT ILLNESS: The patient is a 63-year-old male, who is admitted to us from [facility] with a diagnosis of altered mental status [...] with hypernatremia and hyperkalemia-we (more content not included)...[place] [facility]-20[facility]2023 [id number]24 [id number] [facility]04-01-2024 History of Present illness Narrative* Alvaro Herrera - 11/20/2023 12:00 AM EDT [facility] RESIDENTIAL NOTE NAME: [facility] NO.: [id number] DATE OF SERVICE: 11/20/2023 ATTENDING PHYSICIAN: Alvaro Herrera MD [facility] PATIENT HISTORY AND PHYSICAL: HISTORY OF PRESENT ILLNESS: The patient is a 63-year-old male, who is admitted to us from [facility] with a diagnosis of altered mental [...] himself. DICTATED BY: MD KORI Cho/MARCIA JOB# [id number] [facility] documented in this encounterKindred Healthcare03-29-2024 Progress note Author Hood Zacarias [facility] November 17, 2023 12:18pm Note Date/Time November 17, 2023 12: 18pm [facility] [address] [place] [address] Nephrology Progress Note Signed Patient: Nicole Lora MR#: [id number] [birth year] : 1960 Acct:[id number] Age/Sex: 63 / M Adm Date: 4 Loc: Room: [address] [place] [address] Type: ADM IN Attending Dr: Manish Fu MD Copies to: ~ Date of Service: 11/17/2023 Subjective Subjective Narrative: This is a 63-year-old male with a medical history of CKD, DM, HTN, TC, COPD, CHF was transferred from [facility] for shortness of breath and hypercapnic respiratory failure. Patient was admitted at [facility] on September 2023 for COPD and CHF. During hospitalization he wasalso found to have AMY on CKD due to the cardiorenal syndrome. His renal function improved with diuresis. Patient was also found to have urine retentionand had Elliott catheter. Patient was readmitted at [facility] and his diuretic regimen was adjusted. His labs in ER showed AMY with serum creatinine 4.9 mg/dL and hyperkalemia with serum potassium 5.3 mmol/L and anion gap of 18. Patient ABG showed pH 7.25 pCO2 58 oxygen saturation 57. He was placed on BiPAP briefly. Patient on arrival at [facility] had ABG which showed pH 7.19, pCO2 [...] 186/88 H 96 Nasal Cannula 4 11/17/23 11:26 11/17/23 11:11/17/23 11:11/17/23 11:11/17/23 11:11/17/23 09:15 11/17/23 09:15 [...] Mg/2 Ml Ampul.Neb) 0.5 mg INHALATION BID [facility] Stop: 11/12/24 20:59 Last Admin: 11/17/23 08:11 Dose: 0.5 mg Dextrose (Dextrose 50% In Water 25 Gm/50 Ml Syringe) 0 gm IV-PUSH PRN PRN PRN Reason: Hypoglycemia Stop: 11/10/24 20:56 Duloxetine HCl (Duloxetine 60 Mg Capsule.Dr) 60 mg PO DAILY [facility] Stop: 11/13/24 08:59 Last Admin: 11/17/23 09:13 Dose: 60 mg Gabapentin (Gabapentin 300 Mg Capsule) 300 mg PO QHS [facility] Stop: 11/14/24 21:59 Last Admin: 11/16/23 21:02 Dose: Not Given Glucose (Dextrose 40% Gel 15 Gm Tube) 0 gm PO PRN PRN PRN Reason: Hypoglycemia Stop: 11/10/24 20:56 Last Admin: 11/12/23 17:38 Dose: 30 gm Guaifenesin (Guaifenesin 600 Mg Tab.Er.12h) 1,200 mg PO BID [facility] Stop: 11/12/24 20:59 Last Admin: 11/17/23 09:13 Dose: 1,200 mg Hydralazine HCl (Hydralazine 10 Mg Tablet) 10 mg PO BID [facility] Stop: 11/12/24 20:59 Last Admin: 11/17/23 09:13 Dose: 10 mg Fluconazole (Diflucan) 200 mg in 100 mls @ 100 mls/hr IV Q24H [facility] Last Admin: 11/16/23 14:09 Dose: 100 mls/hr Ceftriaxone Sodium (Rocephin) 1 gm in 50 mls @ 100 mls/hr IV Q24H [facility] Last Admin: 11/16/23 13:20 Dose: 100 mls/hr Insulin Aspart (Insulin Aspart 300 Units/3 Ml Insuln.Pen) 0 units SUBCUT TID.[facility]; Protocol Stop: 11/10/24 21:59 Last Admin: 11/17/23 09:13 Dose: Not Given Insulin Glargine (Insulin Glargine 300 Units/3 Ml Insuln.Pen) 35 units SUBCUT QHS [facility] Stop: 11/10/24 21:59 Last Admin: 11/16/23 21:31 [...] <Electronically signed by MD Hood Zacarias> 11/17/23 1219 [facility] Work Phone: [phone] 722-491603-28-2024 Progress note Author Manish Fu [facility] November 16, 2023 2:26pm Note Date/Time November 16, 2023 1:4 2pm [facility] [address] [place] [address] Hospitalist Progress Note Signed Patient: Nicole Lora MR#: [id number] [birth year] : 1960 Acct:[id number] Age/Sex: 63 / M Adm Date: 4 Loc: 4 Room: [address] [place] [address] Type: ADM IN Attending Dr: Manish Fu MD Copies to: ~ Date of Service: 11/16/2023 Subjective Subjective Narrative: Mental status significantly improved today. Patient notes that he is feeling a lot better, and actually request to go home. I did explain that he has been admitted to the hospital multiple times and needs further care at nursing home facility. He is agreeable to this [...] <Electronically signed by Manish Fu MD> 11/16/23 4005 [facility] Work Phone: 1([phone]) 415-694403-28-2024 Progress note Author Hood Zacarias [facility] November 16, 2023 12:15pm Note Date/Time November 16, 2023 12: 15pm [facility] [address] [place] [address] Nephrology Progress Note Signed Patient: Nicole Lora MR#: [id number] [birth year] : 1960 Acct:[id number] Age/Sex: 63 / M Adm Date: 4 Loc: Room: [address] [place] [address] Type: ADM IN Attending Dr: Manish Fu MD Copies to: ~ Date of Service: 11/16/2023 Subjective Subjective Narrative: This is a 63-year-old male with a medical history of CKD, DM, HTN, TC, COPD, CHF was transferred from [facility] for shortness of breath and hypercapnic respiratory failure. Patient was admitted at [facility] on September 2023 for COPD and CHF. During hospitalization he wasalso found to have AMY on CKD due to the cardiorenal syndrome. His renal function improved with diuresis. Patient was also found to have urine retentionand had Elliott catheter. Patient was readmitted at [facility] and his diuretic regimen was adjusted. His labs in ER showed AMY with serum creatinine 4.9 mg/dL and hyperkalemia with serum potassium 5.3 mmol/L and anion gap of 18. Patient ABG showed pH 7.25 pCO2 58 oxygen saturation 57. He was placed on BiPAP briefly. Patient on arrival at [facility] had ABG which showed pH 7.19, pCO2 [...] 40 Mg Tablet) 40 mg PO QHS [facility] Stop: 11/12/24 21:59 Last Admin: 11/15/23 21:12 Dose: 40 mg Budesonide (Budesonide 0.5 Mg/2 Ml Ampul.Neb) 0.5 mg INHALATION BID [facility] Stop: 11/12/24 20:59 Last Admin: 11/16/23 07:40 Dose: 0.5 mg Dextrose (Dextrose 50% In Water 25 Gm/50 Ml Syringe) 0 gm IV-PUSH PRN PRN PRN Reason: Hypoglycemia Stop: 11/10/24 20:56 Duloxetine HCl (Duloxetine 60 Mg Capsule.Dr) 60 mg PO DAILY [facility] Stop: 11/13/24 08:59 Last Admin: 11/16/23 09:08 Dose: 60 mg Gabapentin (Gabapentin 300 Mg Capsule) 300 mg PO QHS [facility] Stop: 11/14/24 21:59 Last Admin: 11/15/23 21:13 Dose: 300 mg Glucose (Dextrose 40% Gel 15 Gm Tube) 0 gm PO PRN PRN PRN Reason: Hypoglycemia Stop: 11/10/24 20:56 Last Admin: 11/12/23 17:38 Dose: 30 gm Guaifenesin (Guaifenesin 600 Mg Tab.Er.12h) 1,200 mg PO BID [facility] Stop: 11/12/24 20:59 Last Admin: 11/16/23 09:08 Dose: 1,200 mg Hydralazine HCl (Hydralazine 10 Mg Tablet) 10 mg PO BID [facility] Stop: 11/12/24 20:59 Last Admin: 11/16/23 09:08 Dose: 10 mg Fluconazole (Diflucan) 200 mg in 100 mls @ 100 mls/hr IV Q24H [facility] Last Admin: 11/15/23 18:00 Dose: 100 mls/hr Ceftriaxone Sodium (Rocephin) 1 gm in 50 mls @ 100 mls/hr IV Q24H [facility] Insulin Aspart (Insulin Aspart 300 Units/3 Ml Insuln.Pen) 0 units SUBCUT TID.WM.HS [facility]; Protocol Stop: 11/10/24 21:59 Last Admin: 11/16/23 09:08 Dose: Not Given Insulin Glargine (Insulin Glargine 300 Units/3 Ml Insuln.Pen) 35 units SUBCUT QHS [facility] Stop: 11/10/24 21:59 Last Admin: 11/15/23 21:14 [...] 40 Mg Tablet.Dr) 40 mg PO DAILY [facility] Stop: 11/13/24 08:59 Last Admin: 11/16/23 09:07 Dose: 40 mg Sennosides (Sennosides 8.6 Mg Tablet) 1 tab PO BID [facility] Stop: 11/10/24 20:59 Last Admin: 11/16/23 09:07 Dose: 1 tab Tamsulosin HCl (Tamsulosin 0.4 Mg Cap.Er.24h) 0.4 mg PO DAILY [facility] Stop: 11/13/24 08:59 Last Admin: 11/16/23 09:08 Dose: 0.4 mg Torsemide (Torsemide 20 Mg Tablet) 40 mg PO DAILY@0800 [facility] Stop: 11/13/24 09:44 Last Admin: 11/16/23 09:08 [...] <Electronically signed by MD Hood Zacarias> 11/16/23 1617 [facility] Work Phone: [phone] 415-661803-27-2024 Progress note Author Hood Zacarias [facility] November 15, 2023 1:58pm Note Date/Time November 15, 2023 1:5 8pm [facility] [address] [place] [address] Nephrology Progress Note Signed Patient: Nicole Lora MR#: [id number] [birth year] : 1960 Acct:[id number] Age/Sex: 63 / M Adm Date: 4 Loc: Room: [address] [place] [address] Type: ADM IN Attending Dr: Manish Fu MD Copies to: ~ Date of Service: 11/15/2023 Subjective Subjective Narrative: This is a 63-year-old male with a medical history of CKD, DM, HTN, TC, COPD, CHF was transferred from [facility] for shortness of breath and hypercapnic respiratory failure. Patient was admitted at [facility] on September 2023 for COPD and CHF. During hospitalization he wasalso found to have AMY on CKD due to the cardiorenal syndrome. His renal function improved with diuresis. Patient was also found to have urine retentionand had Elliott catheter. Patient was readmitted at [facility] and his diuretic regimen was adjusted. His labs in ER showed AMY with serum creatinine 4.9 mg/dL and hyperkalemia with serum potassium 5.3 mmol/L and anion gap of 18. Patient ABG showed pH 7.25 pCO2 58 oxygen saturation 57. He was placed on BiPAP briefly. Patient on arrival at [facility] had ABG which showed pH 7.19, pCO2 [...] 3 Ml Ampul.Neb) 3 ml INHALATION QID.RESP [facility] Stop: 11/12/24 19:59 Last Admin: 11/15/23 11:28 Dose: 3 ml Atorvastatin Calcium (Atorvastatin 40 Mg Tablet) 40 mg PO QHS [facility] Stop: 11/12/24 21:59 Last Admin: 11/14/23 21:10 Dose: 40 mg Budesonide (Budesonide 0.5 Mg/2 Ml Ampul.Neb) 0.5 mg INHALATION BID [facility] Stop: 11/12/24 20:59 Last Admin: 11/15/23 09:00 Dose: 0.5 mg Dextrose (Dextrose 50% In Water 25 Gm/50 Ml Syringe) 0 gm IV-PUSH PRN PRN PRN Reason: Hypoglycemia Stop: 11/10/24 20:56 Duloxetine HCl (Duloxetine 60 Mg Capsule.Dr) 60 mg PO DAILY [facility] Stop: 11/13/24 08:59 Last Admin: 11/15/23 08:14 Dose: 60 mg Gabapentin (Gabapentin 300 Mg Capsule) 300 mg PO QHS [facility] Stop: 11/14/24 21:59 Glucose (Dextrose 40% Gel 15 Gm Tube) 0 gm PO PRN PRN PRN Reason: Hypoglycemia Stop: 11/10/24 20:56 Last Admin: 11/12/23 17:38 Dose: 30 gm Guaifenesin (Guaifenesin 600 Mg Tab.Er.12h) 1,200 mg PO BID [facility] Stop: 11/12/24 20:59 Last Admin: 11/15/23 08:14 Dose: 1,200 mg Hydralazine HCl (Hydralazine 10 Mg Tablet) 10 mg PO BID [facility] Stop: 11/12/24 20:59 Last Admin: 11/15/23 08:14 Dose: 10 mg Fluconazole (Diflucan) 200 mg in 100 mls @ 100 mls/hr IV Q24H [facility] Insulin Aspart (Insulin Aspart 300 Units/3 Ml Insuln.Pen) 0 units SUBCUT TID.WM.HS [facility]; Protocol Stop: 11/10/24 21:59 Last Admin: 11/15/23 08:15 Dose: Not Given Insulin Glargine (Insulin Glargine 300 Units/3 Ml Insuln.Pen) 35 units SUBCUT QHS [facility] Stop: 11/10/24 21:59 Last Admin: 03/26/24 21:10 Dose: 35 units Melatonin (Melatonin 5 [...] Urine culture from Elliott catheter showed Enterobacter Benson complex and Kaelyn albicans. Patient has indwelling Elliott catheter and he is supposed to follow-up with urology for cystometric and cystoscopy as outpatient. * Check renal function daily monitor input output Documented By: Hood Zacarias MD 11/15/23 3011 Signed By: <Electronically signed by MD Hood Zacarias> 11/15/23 3679 [facility] Work Phone: [phone]) 391-370603-27-2024 Progress note Author Manish Fu [facility] November 15, 2023 1:27pm Note Date/Time November 15, 2023 12: 20pm [facility] [address] [place] [address] Hospitalist Progress Note Signed Patient: Nicole Lora MR#: [id number] [birth year] : 1960 Acct:[id number] Age/Sex: 63 / M Adm Date: 4 Loc: 4 Room: [address] [place] [address] Type: ADM IN Attending Dr: Manish Fu [...] Insuln.Pen SUBCUT 11/10/24 21:59 Not Given TID.WM[facility] Protocol Insulin Glargine 35 units 11/11/23 22:00 [...] signed by Manish Fu MD> 11/15/23 1327 [facility] Work Phone: [phone] Progress note Author Manish Fu [facility] November 14, 2023 8:19pm Note Date/Time November 14, 2023 8:0 8pm [facility] [address] [place] [address] Hospitalist Progress Note Signed Patient: Nicole Lora MR#: [id number] [birth year] : 1960 Acct:[id number] Age/Sex: 63 / M Adm Date: 4 Loc: 4 Room: [address] [place] [address] Type: ADM IN Attending Dr: Manish Fu [...] Insuln.Pen SUBCUT 11/10/24 21:59 Not Given TID.WM.HS [facility] Protocol Insulin Glargine 35 units 11/11/23 [...] <Electronically signed by Manish Fu MD> 11/14/232018 [facility] Work Phone: [phone]) 474-132603-26-2024 Progress note Author Hood Zacarias [facility] November 14, 2023 1:34pm Note Date/Time November 14, 2023 1:3 4pm [facility] [address] [place], [place] [address] Nephrology Progress Note Signed Patient: Nicole Lora MR#: [id number] [birth year] : 1960 Acct:[id number] Age/Sex: 63 / M Adm Date: 4 Loc: Room: [address] [place] [address] Type: ADM IN Attending Dr: Manish Fu MD Copies to: ~ Date of Service: 11/14/2023 Subjective Subjective Narrative: This is a 63-year-old male with a medical history of CKD, DM, HTN, TC, COPD, CHF was transferred from [facility] for shortness of breath and hypercapnic respiratory failure. Patient was admitted at [facility] on September 2023 for COPD and CHF. During hospitalization he wasalso found to have AMY on CKD due to the cardiorenal syndrome. His renal function improved with diuresis. Patient was also found to have urine retentionand had Elliott catheter. Patient was readmitted at [facility] and his diuretic regimen was adjusted. His labs in ER showed AMY with serum creatinine 4.9 mg/dL and hyperkalemia with serum potassium 5.3 mmol/L and anion gap of 18. Patient ABG showed pH 7.25 pCO2 58 oxygen saturation 57. He was placed on BiPAP briefly. Patient on arrival at [facility] had ABG which showed pH 7.19, pCO2 [...] Mg/2 Ml Ampul.Neb) 0.5 mg INHALATION BID [facility] Stop: 11/12/24 20:59 Last Admin: 11/14/23 07:35 Dose: 0.5 mg Dextrose (Dextrose 50% In Water 25 Gm/50 Ml Syringe) 0 gm IV-PUSH PRN PRN PRN Reason: Hypoglycemia Stop: 11/10/24 20:56 Duloxetine HCl (Duloxetine 60 Mg Capsule.Dr) 60 mg PO DAILY [facility] Stop: 11/13/24 08:59 Last Admin: 11/14/23 08:10 Dose: 60 mg Glucose (Dextrose 40% Gel 15 Gm Tube) 0 gm PO PRN PRN PRN Reason: Hypoglycemia Stop: 11/10/24 20:56 Last Admin: 11/12/23 17:38 Dose: 30 gm Guaifenesin (Guaifenesin 600 Mg Tab.Er.12h) 1,200 mg PO BID [facility] Stop: 11/12/24 20:59 Last Admin: 11/14/23 08:10 Dose: 1,200 mg Hydralazine HCl (Hydralazine 10 Mg Tablet) 10 mg PO BID [facility] Stop: 11/12/24 20:59 Last Admin: 11/14/23 08:10 Dose: 10 mg Ceftriaxone Sodium (Rocephin) 2 gm in 50 mls @ 100 mls/hr IV Q24H [facility] Stop: 11/15/23 08:29 Last Admin: 11/14/23 08:11 Dose: 100 mls/hr Insulin Aspart (Insulin Aspart 300 Units/3 Ml Insuln.Pen) 0 units SUBCUT TID.[facility]; Protocol Stop: 11/10/24 21:59 Last Admin: 11/14/23 12:41 Dose: Not Given Insulin Glargine (Insulin Glargine 300 Units/3 Ml Insuln.Pen) 35 units SUBCUT QHS [facility] Stop: 11/10/24 21:59 Last Admin: 11/13/23 21:13 [...] 20 Mg Tablet) 40 mg PO DAILY@0800 [facility] Stop: 11/13/24 09:44 Last Admin: 11/14/23 10:09 [...] Urine culture from Elliott catheter showed Enterobacter Benson complex and Kaelyn albicans. * Continue Elliott care for now. Will give a trial of void with bladder scan once renal function stabilizes diuretics. * Check renal function daily monitor input output Documented By: Hood Zacarias MD 11/14/23 0346 Signed By: <Electronically signed by MD Hood Zacarias> 11/14/23 3276 [facility] Work Phone: 1(141) 497-318503-25-2024 Progress note Author Manish Fu [facility] November 13, 2023 7:32pm Note Date/Time November 13, 2023 5:3 5pm [facility] [address] [place] [address] Hospitalist Progress Note Signed with Jazzy Patient: Nicole Lora MR#: [id number] [birth year] : 1960 Acct:[id number] Age/Sex: 63 / M Adm Date: 4 Loc: 4P Room: 5F8033-8 Type: ADM IN Attending Dr: Manish Fu [...] Insuln.Pen SUBCUT 11/10/24 21:59 Not Given TID.[facility] Protocol Insulin Glargine 35 units 11/11/23 22:00 [...] signed by Manish Fu MD> 11/13/23 1906 [facility] Work Phone: 1([phone]) 226-618303-25-2024 Progress note [facility] November 13, 2023 2:24pm Note Date/Time November 13, 2023 2:2 4pm [facility] [address] [place] [address] Nephrology Progress Note Signed Patient: Nicole Lora MR#: [id number] [birth year] : 1960 Acct:[id number] Age/Sex: 63 / M Adm Date: 4 Loc: 4 Room: 2D2449-4 Type: ADM IN Attending Dr: Manish Fu MD Copies to: ~ Date of Service: 11/13/2023 Subjective Subjective Narrative: This is a 63-year-old male with a medical history of CKD, DM, HTN, TC, COPD, CHF was transferred from [facility] for shortness of breath and hypercapnic respiratory failure. Patient was admitted at [facility] on September 2023 for COPD and CHF. During hospitalization he wasalso found to have AMY on CKD due to the cardiorenal syndrome. His renal function improved with diuresis. Patient was also found to have urine retentionand had Elliott catheter. Patient was readmitted at [facility] and his diuretic regimen was adjusted. His labs in ER showed AMY with serum creatinine 4.9 mg/dL and hyperkalemia with serum potassium 5.3 mmol/L and anion gap of 18. Patient ABG showed pH 7.25 pCO2 58 oxygen saturation 57. He was placed on BiPAP briefly. Patient on arrival at [facility] had ABG which showed pH 7.19, pCO2 65.9 pO2 90.9%. Patient has a CKD dueto the longstanding DM and HTN baseline creatinine around 1.5 to 1.9 g/dL. Nephrology is consulted for AYM on CKD management. Interval history: Patient is [...] 11/13/23 10:00 11/13/23 08:00 11/13/23 10:00 11/13/23 10:11/13/23 10:00 Narrative: General: Morbidly obese, mild respiratory [...] Intake and Output I&O: Intake & Output 03/22/24 03/23/24 03/24/24 03/25/24 23:59 23:59 23:59 23:59 Intake Total 0 [...] 50 mls @ 100 mls/hr IV Q24H [facility] Stop: 11/15/23 08:29 Last Admin: 11/13/23 09:17 Dose: 100 mls/hr Insulin Aspart (Insulin Aspart 300 Units/3 Ml Insuln.Pen) 0 units SUBCUT TID.[facility]; Protocol Stop: 11/10/24 21:59 Last Admin: 11/13/23 14:08 Dose: Not Given Insulin Glargine (Insulin Glargine 300 Units/3 Ml Insuln.Pen) 35 units SUBCUT QHS [facility] Stop: 11/10/24 21:59 Last Admin: 11/12/23 21:43 [...] Migue Wild M.D.11/12/2023 2:47 PM Dictation Location: [place] [address] Any impression(s) listed above is documentation that [...] Urine culture from Elliott catheter showed Enterobacter Benson complex and Kaelyn albicans. * Continue DM management as per the primary hospitalist team. The goal of blood sugar is 100 to 150 mg/dL. * Continue Elliott care. * Check renal function daily monitor input output Documented By: Hood Zacarias MD 11/13/23 1412 Signed By: <Electronically signed by MD Hood Zacarias> 11/13/23 1428 [facility] Work Phone: [phone]) 929-451603-24-2024 Progress note Author Durga Loza [facility] November 12, 2023 1:45pm Note Date/Time November 12, 2023 1:4 5pm [facility] [address] [place] [address] Hospitalist Progress Note Signed Patient: Nicole Lora MR#: [id number] [birth year] : 1960 Acct:[id number] Age/Sex: 63 / M Adm Date: 4 Loc: Room: [address] [place] [address] Type: ADM IN Attending Dr: Durga Loza [...] CHF with preserved ejection fraction who presents tohospital today from transfer from outside facility for [...] who says that the patientwas [facility] roughly 1 week later after discharge from our facility and there was some adjustments to his diuretic therapy howevershe is not sure what the new medication was, medication list received from [facility] emergency room note shows Lasix 40 mg [...] leaking at home for a while. At [facility] he did receive 2 L of IV fluids and then subsequently transferred here for a nephrologyconsult. His labs at [facility] were notable for BUN of 76 and [...] 11/11/24 07:29 12 units SUBCUT Administration TID.AC [facility] Insulin Glargine 35 units 11/11/23 22:00 11/11/23 [...] fluid restriction ? Full code Daughter, Davin she can be reached at [phone] Documented By: Durga Loza MD 11/12/231341 Signed By: <Electronically signed by Durga Loza MD> 11/12/23 1345 [facility] Work Phone: 1(307) 812-580603-24-2024 Consult note Author Bladimir Story [facility] November 12, 2023 11:53am Note Date/Time November 12, 2023 11: 31am [facility] [address] [place] [address] Nephrology Consult Note Signed Patient: Nicole Lora MR#: [id number] 29 : 1960 Acct:[id number] Age/Sex: 63 / M Adm Date: 4 Loc: Room: [address] [place] [address] Type: ADM IN Attending Dr: Durga Loza MD Copies to: MD Mounika Limon MD, MD~ Providers Consult Date: 11/12/23 Requesting Provider: Durga Loza MD Primary Care Provider: Mounika Brooke MD HPI Reason for Consult: AMY on CKD History of Present Illness: This is a 63-year-old male with a medical history of CKD, DM, HTN, TC, COPD, CHF was transferred from [facility] for shortness of breath and hypercapnic respiratory failure. Patient was admitted at [facility] 2023 for COPD and CHF. During hospitalization he was also found to have AMY on CKD due to the cardiorenal syndrome. His renal function improved with diuresis. Patient was also found to have urine retentionand had Elliott catheter. Patient was readmitted at [facility] and his diuretic regimen was adjusted. His labs in ER showed AMY with serum creatinine 4.9 mg/dL and hyperkalemia with serum potassium 4.3 mmol/L and anion gap of 18. Patient ABG showed pH 7.25 pCO2 58 oxygen saturation 57. He was placed on BiPAP briefly. Patient on arrival at [facility] had ABG which showed pH 7.19, pCO2 [...] polydipsia Dermatological: denies any itching or rash [facility] Medical History (Updated 11/12/23 @ 11:27 by [...] 5,000 Unit/Ml Vial) 5,000 unit SUBCUT Q8HR [facility] Stop: 11/10/24 21:59 Last Admin: 11/12/23 07:27 Dose: Not Given Ceftriaxone Sodium (Rocephin) 2 gm in 50 mls @ 100 mls/hr IV Q24H [facility] Stop: 11/15/23 08:29 Last Admin: 11/12/23 10:17 Dose: 100 mls/hr Insulin Aspart (Insulin Aspart 300 Units/3 Ml Insuln.Pen) 0 units SUBCUT TID.WM.HS JIMMIE; Protocol Stop: 11/10/24 21:59 Last Admin: 11/12/23 10:16 Dose: 2 units Insulin Aspart (Insulin Aspart 300 Units/3 Ml Insuln.Pen) 12 units 0.083 units/kg (12 units) SUBCUT TID.AC [facility] Stop: 11/11/24 07:29 Last Admin: 11/12/23 10:16 Dose: 12 units Insulin Glargine (Insulin Glargine 300 Units/3 Ml Insuln.Pen) 35 units SUBCUT QHS [facility] Stop: 11/10/24 21:59 Last Admin: 11/11/23 22:51 [...] 8.6 Mg Tablet) 1 tab PO BID [facility] Stop: 11/10/24 20:59 Last Admin: 11/12/23 10:16 [...] Skin: No rashes , warm to touch LANDSCAPE NURSERYMAN: Awake,Alert, following simple command Musculoskeletal: No swelling or limitation of movement of the large joints Psychiatric: Cooperative, normal mood and affect Results - Nephrology Labs 11/12/23 04:54 11/12/23 04:54 Labs: 11/11/23 11/11/23 11/12/23 19:27 22:20 04:54 BUN 78 H 80 H Creatinine 4.63 H 4.44 H Albumin 3.4 L Urine Color Blair A Urine Appearance Turbid A Urine pH 5.0 Ur Specific Chandler 1.017 Urine Protein 100 H Urine Glucose [...] <Electronically signed by Bladimir Story MD> 11/12/23 1155 [facility] Work Phone: 1(381) 185-946803-23-2024 History and physical note Author Tera Nevarez [facility] November 11, 2023 9:06pm Note Date/Time November 11, 2023 8:0 3pm [facility] [address] [place] [address] Hospitalist H&P Signed with Addenda Patient: Nicole Lora MR#: [id number] 29 : 1960 Acct:[id number] Age/Sex: 63 / M Adm Date: 4 Loc: Room: [address] [place] [address] Type: ADM IN Attending Dr: Tera Nevarez DO Copies to: Mounika Nevarez, ~ ADDENDUM1 Please add urinary tract infection to his assessment and plan Acute complicated UTI Patient has a Elliott catheter in, ceftriaxone 2 g every 24 ? Urinalysis and culture were sent from [facility], will call tomorrow to see if his [...] CHF with preserved ejection fraction [facility] [...] who says that the patientwas [facility] roughly 1 week later after discharge from our facility and there was some adjustments to his diuretic therapy howevershe is not sure what the new medication was, medication list received from [facility] emergency room note shows Lasix 40 mg [...] leaking at home for a while. At [facility] he did receive 2 L of IV fluids and then subsequently transferred here for a nephrologyconsult. His labs at [facility] were notable for BUN of 76 and [...] negative unless noted below or in HPI [facility] Medical History (Updated 11/11/23 @ 20:47 by [...] 11/11/23 19:27 MCHC 30.9 g/dL (32.5-35.6) L 11/11/23: RDW 18.9 % (12.0-14.8) H 11/11/23: Plt Count 237 x10E3/uL (150-450) 11/11/23 19: MPV 7.0 fl (6.6-10.1) 11/11/23: Neut % (Auto) 73.6 % (.) 11/11/23: Lymph % (Auto) 14.5 % (.) 11/11/23: Traill % (Auto) 9.1 % (.) 11/11/23: Eos % (Auto) 2.1 % (.) 11/11/23: Baso % (Auto) 0.7 % (.) 11/11/23: Nucleat RBC Rel Count 0.1 /100 WBC (0-0.5) 11/11/23: Neut # (Auto) 5.4 x10E3/uL (1.8-7.7) 11/11/23: Lymph # (Auto) 1.1 x10E3/uL (1.00-4.8) 11/11/23: Traill # (Auto) 0.7 x10E3/uL (0.0-0.8) 11/11/23 19: Eos # (Auto) 0.2 x10E3/uL (0.0-0.45) 11/11/23: Baso # (Auto) 0.0 x10E3/uL (0.0-0.2) 11/11/23: Lactic Acid 0.8 mmol/L (0.5-2.2) 11/11/23 19: [...] daughter, Davin she can be reached at [phone] IP vs OBS Justification Based on differential [...] <Electronically signed by Tera Nevarez DO> 11/11/232052 [facility] Work Phone: 1(903) 621-124003-23-2024 Evaluation + Plan noteExtracted from: Title:ED Note [...] Appointments Appointment Date:11/16/2023 09:00:00 AM Scheduled Provider: Location:[facility] Appointment Type:Urology CALL PAT FT Appointment Date:11/20/2023 12:00:00 PM Scheduled Provider: Location:[facility] Appointment Type:Urology FT Appointment Date:11/20/2023 01:15:00 PM Scheduled Provider: Location:[facility] Appointment Type:Urology FT Diagnostic Tests Pending * Blood Culture Charcoal 11/11/23 * Blood Culture Charcoal 11/11/23 * Urine Culture 11/11/23 Future Scheduled Tests Radiology* XR Chest 2 Views 05/15/23 * XR Chest 2 Views 05/15/23 [facility]03-11-2024 Evaluation + Plan noteExtracted from: Title:ED Note Author:Staci Beck DO Date :10/30/23 Complication of Elliott cathet er (T83.9XXA: Unspecified complication of genitourinary prosthetic device, implant and graft, initial encounter) Future Appointments Appointment Date:11/01/2023 02:00:00 PM Scheduled Provider: Location:[facility] Appointment Type:URO Nurse Visit Appointment Date:11/16/2023 09:00:00 AM Scheduled Provider: Location:[facility] Appointment Type:Urology CALL PAT FT Appointment Date:11/20/2023 12:00:00 PM Scheduled Provider: Location:[facility] Appointment Type:Urology FT Appointment Date:11/20/2023 01:15:00 PM Scheduled Provider: Location:[facility] Appointment Type:Urology FT Future Scheduled Tests Radiology* XR Chest 2 Views 05/15/23 * XR Chest 2 Views 05/15/23 [facility]03-11-2024 Hospital Discharge instructions Patient Education 10/30/2023 [...] bag. Secure the leg bag according to reference test clerk's instructions. This may be above or below [...] on each side. Do this in a wevca-wj-zqwr direction. ?If you are male: ?Use one [...] Clean the drainage bag according to the reference test clerk's instructions or as told byyour health care [...] and water are not available, use hand fuse cutter. Always make sure there are no twists, [...] provider. Document Revised: 04/07/2022 Document Reviewed: 04/07/2022 [employer] Patient Education 2022 [employer]. Follow Up Care 10/30/2023 05:10:48 With:Taz THOMAS Address: [address] [address] Business (1) When:11/02/2023 05:21:06 Comments:Follow-up with urology for further evaluation and management. Please return to the ED for any new or worsening symptoms. With:REID BROOKE Address: [address] [address] Business (1) When:Within 3 Day(s) [facility]03-09-2024 NoteHNO ID: [id number] Author: JOHN SPANN RN Service: ? Author Type: Registered Nurse Type: Progress Notes Filed: 10/28/2023 13:45 Note Text: Patient given discharge instructions and printed AVS summary. Medications reviewed in detail including next dose due, indication, and side effects. CHF management including symptoms to report reviewed. All questions answered. IV access discontinued, heart monitor off, and valuables packed by patient. [address] [facility] medications with patient. Awaiting daughter to transport patient home.[facility] HospitalRzfhjqge96-26-2590 NoteHNO ID: [id number] Author: GÓMEZ OLIVA LSW Service: Care Management Author Type: Pocketbook Maker Type: Care Mgt Progress Note Filed: 10/28/2023 12:15 Note Text: CARE MANAGEMENT DISCHARGE NOTE SERVICE DATE: October 28, 2023 SERVICE TIME: 12:14 PM Admission Date: 10/23/2023 LOS: 4 days Discharge Arrangement Discharge Arrangement: Home with Home Health Services Arranged Medical Services: Skilled Home Health Care Type: Half-Way, Physical Therapy, Occupational Therapy Caregiver Assessment Caregiver is ready, willing and able to meet the patient's needs as recommended by the inter-professional team: Yes Name of Caregiver: [facility] Transportation Arrangements Transportation Arrangements: Car Handoff Communication: Additional Information: Discharge Information Row Name ED to Hosp-Admission (Current) from 10/23/[address] Home Health Care Agency [facility] Patient will be d/c home with HHC from [facility] with a SOC date in 24 to 48 hours. Patient will transported home via family auto. SIGNATURE: JACK Posada PATIENT NAME: Nicole Lora DATE: October 28, 2023 TIME: 12:14 PM CONTACT #: [phone] History of Past illness Narrative* Problem Noted Date Diagnosed Date Resolved Date Acute on chronic respiratory failure with hypoxemia 10/28/2023 Last Assessment & Plan: See fluid overload documented as of this encounter (statuses as of 10/31/2023) [facility]03-09-2024 History of Past illness Narrative* Problem Noted Date Diagnosed Date Resolved Date Acute on chronic respiratory failure with hypoxemia 10/28/2023 Last Assessment & Plan: See fluid overload documented as of this encounter (statuses as of 11/22/2023) [address]09-2024 History of Past illness Narrative* Problem Noted Date Diagnosed Date Resolved Date Acute on chronic respiratory failure with hypoxemia 10/28/2023 Last Assessment & Plan: See fluid overload documented as of this encounter (statuses as of 11/29/2023) [facility]03-09-2024 NoteHNO ID: [id number] Author: NAUN COUCH MD Service: Nephrology Author [...] limbs: +1 edema, distal pulses were palpable. LANDSCAPE NURSERYMAN: Conscious, Alert AND Orientedx3, fluent speech, intact [...] amputation admitted from home who presented to [facility] with complaints of worsening shortness of breath, bilateral lower extremity edema and ~ 10lb weight gain in the last few weeks. Patient reports multiple hospital admissions in 2023 at [facility] in [place] for fluid overload. He states he usually [...] daily - trending alkalosis Given diamox -HTN [address] VENDOR Hydralazine 75 mg q12 hours -> decreased to 10 mg TID Isordil on hold, Continue to trend Can be discharged from nephrology standpoint Re-educated patient on fluid restriction, daily weight Follow up in office in 2-3 weeks Plan of care discussed with: Provider, RN, Patient Naun Couch MD [facility] October 28, 2023 8:37 AM [phone] NoteHNO ID: [id number] Author: NOTE, INTERFACE, ? Service: ? Author Type: ? Type: Progress Notes Filed: 10/28/2023 03:39 Note Text: Epic Scheduled Downtime: 10/28/2023 1:00:00 AM to 10/28/2023 3:24:00 [facility]03-08-2024 NoteHNO ID: [id number] Author: GÓMEZ OLIVA LSW Service: Care Management Author Type: Pocketbook Maker Type: Care Mgt Progress Note Filed: 10/27/2023 13:20 Note Text: CARE MANAGEMENT PROGRESS NOTE SERVICE DATE: 10/27/2023 SERVICE TIME: 1:17 PM LOS: 3 days Needs Prior to Discharge: To Be Determined Consults: - Pulmonology - Cardiology Medical Needs: - IV lasix Transportation: - Family D/C Disposition: Once cleared by consults and attending physician, patient will be d/c back home. Patient is active with [facility] for PT/OT/SN provided to agency. Plan for patient's daughter or niece to transport. Please contact this SW over the weekend for d/c planning as needed. SIGNATURE: JACK Posada PATIENT NAME: Nicole Lora DATE: October 27, 2023 TIME: 1:17 PM PAGER/CONTACT #: [phone] NoteHNO ID: [id number] Author: TAY STEWART MD Service: General Internal [...] -- -- -- 70 22 90 % 10/26/23 2025 -- -- -- 74 19 95 % [...] 6.3 CA 9.1 MG (more content not included)...[facility] HospitalAscdcyqg76-96-8189 NoteHNO ID: [id number] Author: JUSTINO MARTÍNEZ RN Service: Nursing Author Type: Registered Nurse Type: Nursing Progress Note Filed: 10/27/2023 03:59 Note Text: Patient's daughter called. She would like the team to call her with updates. [facility] HospitalZkwmktck94-88-4728 NoteHNO ID: [id number] Author: DELLA MADDOX RN Service: Care Management Author Type: Registered Nurse Type: Care Mgt Progress Note Filed: 10/26/2023 18:23 Note Text: CARE MANAGEMENT PROGRESS NOTE SERVICE DATE: 10/26/2023 SERVICE TIME: 6:16 PM LOS: 2 days Post-Acute Discharge Planning Patient Goal(s): General wellness Halls of Choice Explained: Halls of Choice Given: Yes Level of Care [...] not know which agency. CM searched in [facility]-looks like pt is active with [facility] [phone] per [facility]-referral sent to confirm/resume. May NEED NEW F2F [...] 26, 2023 TIME: 6:15 PM PAGER/CONTACT #: [phone] NoteHNO ID: [id number] Author: VALERIE LINDSEY APRN.CNP Service: General Internal Medicine Author Type: Nurse Practitioner Type: Plan of Care Filed: 10/26/2023 15:36 Note Text: INTERNAL MEDICINE PLAN OF CARE SERVICE DATE: 10/26/2023 SERVICE TIME: 10 am ADMITTING PHYSICIAN: Tay Stewart MD Subjective CHIEF COMPLAINT: Fluid Overload NIGHT AND WEEKEND COVERAGE: [place] COVERAGE: [place] PAGER [phone] INTERVAL HISTORY OF PRESENT ILLNESS: Pt seen and examined on RNF no apparent distress oob in chair. On was moved from the MICU to [facility] yesterday evening . CONSULTANTS: Cardiology, nephrology , Pulmonary consulted today HOSPITAL COURSE: This is a 63 year old male with a PMHx of CKD 3b, chronic respiratory failure, morbid obesity, insulin dependent diabetes, left forefoot amputation admitted from home, lives in [place] for fluid overload. The patient states he's [...] consulted . Patient transferred from ED to [facility] where he has RR 2/2 acute [...] and Airways Line Duration Peripheral 10/23/23 1609 [facility] Short Right Antecubital 20 Gauge 2 days Drain Duration Indwelling Urinary Catheter External Facility Coude 18 Fr -- days ASSESSMENT/PLAN: * Fluid overload- (present (more content not included)...[facility] 10-26-2023 NoteHNO ID: [id number] Author: TAY STEWART MD Service: General Internal Medicine Author Type: Physician Type: Progress Notes Filed: 10/26/2023 21:13 Note Text: PROGRESS NOTE - INTERNAL MEDICINE PATIENT NAME: Nicole Lora SERVICE DATE: 10/26/2023 ADMITTING PHYSICIAN: aTy Stewart MD -ASSESSMENT AND PLAN: Principal Problem: [...] -- -- 70 18 90 % -- 10/25/23 2124 141/60 36.6 ?C (97.9 ?F) Oral 73 [...] the last 24 hours. BMP: Recent Labs 10/26/23 06 NA 146* K [...] which included preparing to see the patient, cjlk-js-rfak patient ca (more content not included)...[facility] 10-25-2023 NoteHNO ID: [id number] Author: NAUN COUCH MD Service: Nephrology Author [...] limbs: +3 edema, distal pulses were palpable. 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 DATA: Diagnostic tests reviewed for today's visit: CBC, Coags, BMP, Mg, Phos Recent Labs 10/25/23 0627 10/24/23 0906 10/24/23 0208 10/24/23 0207 10/23/23 1607 [...] amputation admitted from home who presented to [facility] with complaints of worsening shortness of breath, bilateral lower extremity edema and ~ 10lb weight gain in the last few weeks. Patient reports multiple hospital admissions in 2023 at [facility] in [place] for fluid overload. He states he usually [...] mg TID More stable, feeling better -HTN [address] VENDOR Hydralazine 75 mg q12 hours -> decrease to 10 mg TID On Isordil 10 mg TID Continue to trend Plan of care discussed with: Provider, RN, Patient Naun Couch MD [facility] October 25, 2023 4:27 PM [phone] NoteHNO ID: [id number] Author: NERY MOTTA MD Service: Cardiovascular Medicine [...] Motta MD DATE of SERVICE: October 25, 2023[facility] [id number] NoteHNO ID: [id number] Author: MAE KENNY MD Service: Critical Care [...] 1.3 mL in (more content not included)... [facility] HospitalSfhvbxgd29-71-0719 NoteHNO ID: [id number] Author: SRUTHI EGAN PA-C Service: General Internal Medicine Author Type: Physician Commercial Lines Manager Type: Plan of Care Filed: 10/24/2023 [...] Addendum: 2312: Called ICU on-call doc at 2062 and paged at [phone]. [place] back at 2110 with recs to transfer to ICU for bipap initiation. Plan discussed with RN. Patient currently asleep in chair. 90% on 5L O2 NC. Transfer order placed. Sruthi Egan PA-C 10/24/2023 11:15 [facility]03-05-2024 NoteHNO ID: [id number] Author: ELKE ORO RT(R) Service: ? 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 Document Revised: 04/28/2021 Document Reviewed: 04/28/2021 [employer] Patient Education 2022 [employer]. Follow Up Care 09/19/2023 09:41:35 With:MARTHA LYMAN, Taz Abraham, URL Address: [address] [place] [address]- When: Unknown [facility] 02-25-2024 Evaluation + Plan noteExtracted from: Title:ED Note Author:Mone Martinez DO Date: Urinary catheter complicatio n (T83.9XXA: Unspecified complication of genitourinary prosthetic device, implant and graft, initial encounter) Future Appointments Appointment Date:10/18/2023 09:00:00 AM Scheduled Provider:Taz THOMAS MD Location:[facility] Appointment Type:URO New Patient Appointment Date:10/18/2023 09:15:00 AM Scheduled Provider:Sukh Harrington DPM [facility] Appointment Type:WC Follow Up Visit (FT) Appointment Date:11/01/2023 02:00:00 PM Scheduled Provider: Location:[facility] Appointment Type:URO Nurse Visit Appointment Date:11/16/2023 09:00:00 AM Scheduled Provider: Location:[facility] Appointment Type:Urology CALL PAT FT Appointment Date:11/20/2023 01:15:00 PM Scheduled Provider: Location:[facility] Appointment Type:Urology FT Future Scheduled Tests Radiology* XR Chest 2 Views 05/15/23 * XR Chest 2 Views 05/15/23 [facility]02-25-2024 Hospital Discharge instructions Patient Education 10/15/2023 06:54:02 Elliott Catheter Care, Male-[facility] (Custom) Elliott Catheter Care, Male A Elliott [...] cotton underwear to absorb moisture and keep vp marketing services and skin. 6. Keep the drainage bag below the [...] Up Care 10/15/2023 06:04:22 With:REID BROOKE Address: [facility] [address] [id number] [facility] (1) When:10/18/2023 06:53:53 Comments:Call the [...] you develop any new or worsening symptoms. [facility]02-22-2024 Progress note Author Gigi Cooper [facility] October 12, 2023 12:38pm Note Date/Time October 12, 2023 12:38pm [facility] [address] [place] [address] Nephrology Progress Note Signed Patient: Nicole Lora MR#: [id number] [birth year] : 1960 Acct:[id number] Age/Sex: 63 / M Adm Date: 4 Loc: Room: [address] [place] [address] Type: ADM IN Attending Dr: Yesi Murphy [...] / 460 300 / 300 Output Total 04319 / 96366 3600 / 3600 4050 / 4050 900 [...] 40 Mg Tablet) 40 mg PO DAILY [facility] Stop: 10/09/24 08:59 Last Admin: 10/12/23 08:27 Dose: 40 mg Budesonide/Formoterol Fumarate (Budesonide/Formoterol 160-4.5 Mcg 60 Puff/6 Gm Hfa.Aer.Ad) 2 puff INHALATION Q12HR.10A.10P [facility] Stop: 10/08/24 21:59 Last Admin: 10/12/23 09:05 Dose: 2 puff Dextrose (Dextrose 50% In Water 25 Gm/50 Ml Syringe) 0 gm IV-PUSH PRN PRN PRN Reason: Hypoglycemia Stop: 10/06/24 02:05 Furosemide (Furosemide 40 Mg/4 Ml Vial) 40 mg IV-PUSH BID@0800,1600 [facility] Stop: 10/06/24 07:59 Last Admin: 10/11/23 08:01 Dose: 40 mg Gabapentin (Gabapentin 600 Mg Tablet) 600 mg PO BID [facility] Stop: 10/06/24 11:59 Last Admin: 10/12/23 08:27 Dose: 600 mg Glucose (Dextrose 40% Gel 15 Gm Tube) 0 gm PO PRN PRN PRN Reason: Hypoglycemia Stop: 10/06/24 02:05 Heparin Sodium (Porcine) (Heparin 5,000 Unit/Ml Vial) 5,000 unit SUBCUT Q8HR [facility] Stop: 10/06/24 05:59 Last Admin: 10/12/23 04:59 Dose: 5,000 unit Hydralazine HCl (Hydralazine 50 Mg Tablet) 50 mg PO BID [facility] Stop: 10/08/24 08:59 Last Admin: 10/12/23 08:27 Dose: 50 mg Insulin Aspart (Insulin Aspart 300 Units/3 Ml Insuln.Pen) 0 units SUBCUT TID.WM.HS [facility]; Protocol Stop: 10/06/24 07:59 Last Admin: 10/12/23 11:57 Dose: 4 units Insulin Glargine (Insulin Glargine 300 Units/3 Ml Insuln.Pen) 20 units SUBCUT BID [facility] Stop: 10/07/24 20:59 Last Admin: 10/12/23 08:28 Dose: 20 units Naloxone HCl (Naloxone Hcl 0.4 Mg/Ml Vial) 0.1 mg IV-PUSH Q2M PRN PRN Reason: Opioid Reversal Stop: 10/06/24 01:57 Oxycodone HCl (Oxycodone Ir 5 Mg Tablet) 5 mg PO Q6HR PRN PRN Reason: Pain Scale 4 - 7 Last Admin: 10/10/23 23:15 Dose: 5 mg Pantoprazole Sodium (Pantoprazole 40 Mg Tablet.) 40 mg PO DAILY [facility] Stop: 10/09/24 [...] <Electronically signed by Gigi Cooper MD> 10/12/23 1234 [facility] Work Phone: 1(491) 248-728702-22-2024 Discharge summary Author Yesi Murphy [facility] October 12, 2023 1:36pm Note Date/Time October 12, 2023 10:24am [facility] [address] [place] [address] Discharge Summary Signed Patient: Nicole Lora MR#: [id number] [birth year] : 1960 Acct:[id number] Age/Sex: 63 / M Adm Date: 4 Loc: Room: [address] [place] [address]: Yesi Murphy MD Copies to: [...] continued througout his stay with a cumulative -17645 ml during his stay. He did have [...] Plan Discharge Plan Patient Disposition: Home Health [facility] Activity: No Activity Restriction Diet: Diabetic and [...] Patient Ordered By: Yesi Murphy Follow Up: [facility] Nephrology - [place] [Outside] - 10/24/23 10:40 [...] signed by Yesi Murphy MD> 10/12/23 1336 [facility] Work Phone: 1(301) 814-323402-21-2024 Progress note Author Gigi Cooper [facility] October 11, 2023 12:27pm Note Date/Time October 11, 2023 12:27pm [facility] [address] [place] [address] Nephrology Progress Note Signed Patient: Nicole Lora MR#: [id number] [birth year] : 1960 Acct:[id number] Age/Sex: 63 / M Adm Date: 4 Loc: 3T Room: 4W5265-8 Type: ADM IN Attending Dr: Yesi Murphy [...] / 100 Output Total 3475 / 3475 56728 / 74976 3600 / 3600 1500 / 1500 Balance [...] Puff/6 Gm Hfa.Aer.Ad) 2 puff INHALATION Q12HR.10A.10P [facility] Stop: 10/08/24 21:59 Last Admin: 10/11/23 07:58 Dose: 2 puff Dextrose (Dextrose 50% In Water 25 Gm/50 Ml Syringe) 0 gm IV-PUSH PRN PRN PRN Reason: Hypoglycemia Stop: 10/06/24 02:05 Furosemide (Furosemide 40 Mg/4 Ml Vial) 40 mg IV-PUSH BID@0800,1600 [facility] Stop: 10/06/24 07:59 Last Admin: 10/11/23 08:01 Dose: 40 mg Gabapentin (Gabapentin 600 Mg Tablet) 600 mg PO BID [facility] Stop: 10/06/24 11:59 Last Admin: 10/11/23 08:02 Dose: 600 mg Glucose (Dextrose 40% Gel 15 Gm Tube) 0 gm PO PRN PRN PRN Reason: Hypoglycemia Stop: 10/06/24 02:05 Heparin Sodium (Porcine) (Heparin 5,000 Unit/Ml Vial) 5,000 unit SUBCUT Q8HR [facility] Stop: 10/06/24 05:59 Last Admin: 10/11/23 05:42 Dose: 5,000 unit Hydralazine HCl (Hydralazine 50 Mg Tablet) 50 mg PO BID [facility] Stop: 10/08/24 08:59 Last Admin: 10/11/23 08:02 Dose: 50 mg Insulin Aspart (Insulin Aspart 300 Units/3 Ml Insuln.Pen) 0 units SUBCUT TID.WM.HS [facility]; Protocol Stop: 10/06/24 07:59 Last Admin: 10/11/23 11:38 Dose: 3 units Insulin Glargine (Insulin Glargine 300 Units/3 Ml Insuln.Pen) 20 units SUBCUT BID [facility] Stop: 10/07/24 20:59 Last Admin: 10/11/23 08:02 [...] 40 Mg Tablet.Dr) 40 mg PO DAILY [facility] Stop: 10/09/24 08:59 Last Admin: 10/11/23 08:02 [...] signed by Gigi Cooper MD> 10/11/23 1227 [facility] Work Phone: 1(104) 138-313302-21-2024 Progress note Author Yesi Murphy [facility] October 11, 2023 8:19am Note Date/Time October 11, 2023 8:17am [facility] [address] [place] [address] Hospitalist Progress Note Signed Patient: Nicole Lora MR#: [id number] [birth year] : 1960 Acct:[id number] Age/Sex: 63 / M Adm Date: 4 Loc: Room: [address] [place] [address] Type: ADM IN Attending Dr: Yesi Murphy [...] JIMMIE Administration Sodium Chloride 0 ml 10/06/23 20:10/08/23 16:49 Sodium Chloride 0.9 % 10 Ml [...] on chronic heart failure with preserved ejection udeewhdz58% Patient is using 4 L nasal cannula at home since pneumonia hospitalization Previously required Vapotherm, currently on 4 L, saturating 97% Still complains of significant lower extremity edema but improved swelling sinceadmission Continue with diuretic IV therapy, good negative balance continuing I/Os, daily weights, heart healthy diet Obesity hypoventilation syndrome COPD Continue bronchodilators AYM on CKD stage III BMP still pending [...] <Electronically signed by Yesi Murphy MD> 10/11/23818 [facility] Work Phone: 1(264) 110-646102-20-2024 Progress note Author Yesi Murphy [facility] October 10, 2023 1:19pm Note Date/Time October 10, 2023 10:12am [facility] [address] [place] [address] Hospitalist Progress Note Signed Patient: Nicole Lora MR#: [id number] [birth year] : 1960 Acct:[id number] Age/Sex: 63 / M Adm Date: 4 Loc: 3T Room: [address] [place] [address] Type: ADM IN Attending Dr: Yesi Murphy [...] on chronic heart failure with preserved ejection inhlfoqi66% Patient is using 4 L nasal cannula [...] <Electronically signed by Yesi Murphy MD> 10/10/23 8328 [facility] Work Phone: 1(517) 719-958602-20-2024 Progress note Author Gigi Cooper [facility] October 10, 2023 12:50pm Note Date/Time October 10, 2023 12:51pm [facility] [address] [place] [address] Nephrology Progress Note Signed Patient: Nicole Lora MR#: [id number] [birth year] : 1960 Acct:[id number] Age/Sex: 63 / M Adm Date: 4 Loc: Room: [address] [place] [address] Type: ADM IN Attending Dr: Yesi Murphy [...] 18 148/74 H 95 Nasal Cannula 4 10/10/23 11:44 10/10/23 11:44 10/10/23 11:44 10/10/23 [...] Total 4250 / 4250 3475 / 3475 92572 / 98890 900 / 900 Balance -2620 / -2620 [...] Puff/6 Gm Hfa.Aer.Ad) 2 puff INHALATION Q12HR.10A.10P JIMMIE Stop: 10/08/24 21:59 Last Admin: 10/10/23 10:19 Dose: 2 puff Dextrose (Dextrose 50% In Water 25 Gm/50 Ml Syringe) 0 gm IV-PUSH PRN PRN PRN Reason: Hypoglycemia Stop: 10/06/24 02:05 Furosemide (Furosemide 40 Mg/4 Ml Vial) 40 mg IV-PUSH BID@0800,1600 [facility] Stop: 10/06/24 07:59 Last Admin: 10/10/23 08:35 Dose: 40 mg Gabapentin (Gabapentin 600 Mg Tablet) 600 mg PO BID [facility] Stop: 10/06/24 11:59 Last Admin: 10/10/23 08:35 Dose: 600 mg Glucose (Dextrose 40% Gel 15 Gm Tube) 0 gm PO PRN PRN PRN Reason: Hypoglycemia Stop: 10/06/24 02:05 Heparin Sodium (Porcine) (Heparin 5,000 Unit/Ml Vial) 5,000 unit SUBCUT Q8HR [facility] Stop: 10/06/24 05:59 Last Admin: 10/10/23 05:49 Dose: 5,000 unit Hydralazine HCl (Hydralazine 50 Mg Tablet) 50 mg PO BID [facility] Stop: 10/08/24 08:59 Last Admin: 10/10/23 08:36 Dose: 50 mg Insulin Aspart (Insulin Aspart 300 Units/3 Ml Insuln.Pen) 0 units SUBCUT TID.WM.HS [facility]; Protocol Stop: 10/06/24 07:59 Last Admin: 10/10/23 11:50 Dose: 3 units Insulin Glargine (Insulin Glargine 300 Units/3 Ml Insuln.Pen) 20 units SUBCUT BID [facility] Stop: 10/07/24 20:59 Last Admin: 10/10/23 08:37 [...] 40 Mg Tablet.Dr) 40 mg PO DAILY [facility] Stop: 10/09/24 08:59 Last Admin: 10/10/23 08:35 Dose: 40 mg Ropinirole HCl (Ropinirole 1 Mg Tablet) 1 mg PO QHS [facility] Stop: 10/08/24 21:59 Last Admin: 10/09/23 21:48 [...] Appearance Clear Urine pH 5.0 Ur Specific Chandler 1.008 Urine Protein 30 H Urine Glucose [...] signed by Gigi Cooper MD> 10/10/23 1250 [facility] Work Phone: 1(561) 262-508502-19-2024 Progress note Author Hood Zacarias [facility] October 09, 2023 5:43pm Note Date/Time October 08, 2023 2:13pm [facility] [address] [place] [address] Event Note Signed Patient: Nicole Lora MR#: [id number] [birth year] : 1960 Acct:[id number] Age/Sex: 63 / M Adm Date: 4 Loc: Room: [address] [place] [address] Type: ADM IN Attending Dr: Yesi Murphy [...] 10 Documented By: Hood Zacarias MD 10/08/23 1405 Signed By: <Electronically signed by MD Hood Zacarias> 10/09/23 7934 [facility] Work Phone: 1(365) 471-708102-19-2024 Progress note Author Yesi Murphy [facility] October 09, 2023 2:16pm Note Date/Time October 09, 2023 1:59pm [facility] [address] [place] [address] Hospitalist Progress Note Signed Patient: Nicole Lora MR#: [id number] [birth year] : 1960 Acct:[id number] Age/Sex: 63 / M Adm Date: 4 Loc: Room: [address] [place] [address] Type: ADM IN Attending Dr: Yesi Murphy [...] appointment with urologist as outpatient DVT PPx-SCDs, Madsyon wrap's, heparin Diet order-1800 ADA, heart healthy CODE STATUS-full code Documented By: Yesi Murphy MD 10/09/23 1359 Signed By: <Electronically signed by Yesi Murphy MD> 10/09/23 1416 [facility] Work Phone: 1(663) 354-806902-19-2024 Consult note Author Gigi Cooper [facility] October 09, 2023 11:35am Note Date/Time October 09, 2023 11:35am [facility] [address] [place] [address] Nephrology Consult Note Signed Patient: Nicole Lora MR#: [id number] [birth year] : 1960 Acct:[id number] Age/Sex: 63 / M Adm Date: 4 Loc: Room: [address] [place] [address] Type: ADM IN Attending Dr: Yesi Murphy MD Copies to: MD Mounika Patricio MD, MD~ Providers Consult Date: 10/09/23 Requesting Provider: Yesi Murphy MD Primary Care Provider: Mounika Brooke MD [facility] Reason for Consult: Acute kidney injury [...] mild shortness of breath and body anasarca [facility] Medical History (Updated 10/09/23 @ 11:30 by [...] Mg/4 Ml Vial) 40 mg IV-PUSH BID@0800,1600 [facility] Stop: 10/06/24 07:59 Last Admin: 10/09/23 07:49 Dose: 40 mg Gabapentin (Gabapentin 600 Mg Tablet) 600 mg PO BID JIMMIE Stop: 10/06/24 11:59 Last Admin: 10/09/23 07:50 Dose: 600 mg Glucose (Dextrose 40% Gel 15 Gm Tube) 0 gm PO PRN PRN PRN Reason: Hypoglycemia Stop: 10/06/24 02:05 Heparin Sodium (Porcine) (Heparin 5,000 Unit/Ml Vial) 5,000 unit SUBCUT Q8HR [facility] Stop: 10/06/24 05:59 Last Admin: 10/09/23 06:30 Dose: 5,000 unit Hydralazine HCl (Hydralazine 50 Mg Tablet) 50 mg PO BID [facility] Stop: 10/08/24 08:59 Last Admin: 10/09/23 08:04 Dose: 50 mg Insulin Aspart (Insulin Aspart 300 Units/3 Ml Insuln.Pen) 0 units SUBCUT TID.WM.HS [facility]; Protocol Stop: 10/06/24 07:59 Last Admin: 10/09/23 07:58 Dose: Not Given Insulin Glargine (Insulin Glargine 300 Units/3 Ml Insuln.Pen) 20 units SUBCUT BID [facility] Stop: 10/07/24 20:59 Last Admin: 10/09/23 07:57 [...] 10 Ml Syringe) 0 ml IV-PUSH QSHIFT [facility] Stop: 10/06/24 05:59 Last Admin: 10/09/23 06:31 [...] acute findings. Impression dictated by: Reinaldo Cheema Jr. D.OSue10/08/2023 2:58 PM Dictation Location: [place] [address] Any impression(s) listed above is documentation that [...] <Electronically signed by Gigi Cooper MD> 10/09/23 1139 [facility] Work Phone: 1(299) 190-510002-18-2024 Progress note Author Ramses Masters [facility] October 08, 2023 4:03pm Note Date/Time October 08, 2023 12:52pm [facility] [address] [place] [address] Hospitalist Progress Note Signed with Jazzy Patient: Nicole Lora MR#: [id number] [birth year] : 1960 Acct:[id number] Age/Sex: 63 / M Adm Date: 4 Loc: Room: [address] [place] [address] Type: ADM IN Attending Dr: Ramses Masters [...] the daughterand he is usually seen at [facility]. He was recently admitted in August for pneumonia, volume overload and sepsis and now he is back again. The daughter requested the patient to be transferred to [facility]. I explained to thedaughter that at this time the patient is improving and would not have much to be offered more at [facility] but the daughter insistent to have him transferred and that she would feel more comfortable about that. I contacted the [facility] transfer center and spoke with Dr. medeiros [...] Pitoq PRN Reason Stop Dose Admin Acetaminophen 1,000 [...] III?current creatinine seems to be around baseline. ?thiokol operator is stable 1.7 with diuresis. -Consult nephrology [...] signed by Ramses Masters MD> 10/08/23 1252 [facility] Work Phone: 1(791) 495-884902-17-2024 Progress note Author Ramses Masters [facility] October 07, 2023 1:28pm Note Date/Time October 07, 2023 1:28pm [facility] [address] [place] [address] Hospitalist Progress Note Signed Patient: Nicole Lora MR#: [id number] [birth year] : 1960 Acct:[id number] Age/Sex: 63 / M Adm Date: 4 Loc: Room: [address] [place] [address] Type: ADM IN Attending Dr: Ramses Masters [...] signed by Ramses Masters MD> 10/07/23 1328 [facility] Work Phone: 1([phone]) 667-840702-17-2024 History and physical note Author Tera Nevarez [facility] October 07, 2023 4:13am Note Date/Time October 07, 2023 2:10am [facility] [address] [place] [address] Hospitalist H&P Signed Patient: Nicole Lora MR#: [id number] [birth year] : 1960 Acct:[id number] Age/Sex: 63 / M Adm Date: 4 Loc: Room: [address] [place] [address] Type: ADM IN Attending Dr: Tera Nevarez [...] will be admitted as inpatient to the [facility] telemetry floor. Review of Systems Review of Systems Review of systems: A 10 point review of systems was obtained, negative unless noted in the HPI or below. [facility] Medical History (Updated 10/07/23 @ 02:34 by [...] % (Auto) 11.2 % (.) 10/06/23 20:35 Traill % (Auto) 10.0 % (.) 10/06/23 20:35 Eos % (Auto) 3.0 % (.) 10/06/23 20:35 Baso % (Auto) 1.0 % (.) 10/06/23 20:35 Nucleat RBC Rel Count 0.1 /100 WBC (0-0.5) 10/06/23 20:35 Neut # (Auto) 5.2 x10E3/uL (1.8-7.7) 10/06/23 20:35 Lymph # (Auto) 0.8 x10E3/uL (1.00-4.8) L 10/06/23 20:35 Traill # (Auto) 0.7 x10E3/uL (0.0-0.8) 10/06/23 20:35 [...] pH 5.0 (5.0-9.0) 10/06/23 21: Ur Specific Chandler 1.013 (1.001-1.030) 10/06/23 21: Urine Protein 100 mg/dL (Negative) H 10/06/23 21: Urine Glucose (UA) 100 mg/dL (Normal) H 10/06/23 21: Urine Ketones Negative (Negative) 10/06/23 21: Urine Occult Blood 3+ (Negative) H 10/06/23 21: Urine Nitrite Negative (Negative) 10/06/23 21: Urine Bilirubin Negative (Negative) 10/06/23 21: Urine Urobilinogen Normal mg/dL (Normal) 10/06/23 21: Ur Leukocyte Esterase Negative (Negative) 10/06/23 21: Urine RBC Innumerable /HPF (0-4) H 10/06/23 [...] Nurse Practitioner's assessment and plan. - Tera Nevarez, DO IP vs OBS Justification Based on [...] signed by Tera Nevarez DO> 10/07/23 0413 [facility] Work Phone: 1(121) 932-490102-04-2024 Hospital Discharge instructions Patient Education 09/24/2023 21:50:57 [...] Treatment for this condition includes: Antibiotic medicine. Pwhp-yko-mexazds medicines to treat discomfort. Drinking enough water [...] Follow these instructions at home: Medicines Take loeq-wjr-ltrkvmp and prescription medicines only as told by [...] provider. Document Revised: 03/19/2021 Document Reviewed: 03/19/2021 [employer] Patient Education 2022 [employer]. Follow Up Care 09/24/2023 20:06:30 With:Taz THOMAS Address: [address] [place] [address] Business (1) When:09/26/2023 21:38:10 With:REID BROOKE Address: [address] [address] Business (1) When:Within 3 Day(s) [facility]02-04-2024 Evaluation + Plan noteExtracted from: Title:ED Note Author:Jose Miguel Phan DO Date :09/24/23 Acute UTI (N39.0: Urinary tr act infection, site not specified) Orders: cephalexin, 500 mg = 1 cap(s), Oral, q6hr, X 5 day(s), # 20 cap(s), Refills(s) 0, Pharmacy: [facility] #[id number], 180, cm, 09/24/23 20:13:00 EST, Height/Length Dosing, [...] AM Scheduled Provider:BRYAN Bahena APRN, [place] X Location:[facility] Appointment Type:URO New Patient Appointment Date:09/28/2023 01:00:00 PM Scheduled Provider: [facility] Appointment Type:WC HBO () Appointment Date:10/18/2023 09:00:00 AM Scheduled Provider:Taz THOMAS MD Location:[facility] Appointment Type:URO New Patient Diagnostic Tests Pending * Urine Culture 09/24/23 Future Scheduled Tests Radiology* XR Chest 2 Views 05/15/23 * XR Chest 2 Views 05/15/23 [facility]01-28-2024 Hospital Discharge instructions Patient Education 09/17/2023 [...] bag. Secure the leg bag according to reference test clerk's instructions. This may be above or below [...] on each side. Do this in a mbxfl-bm-sjlw direction. ?If you are male: ?Use one [...] Clean the drainage bag according to the reference test clerk's instructions or as told byyour health care [...] and water are not available, use hand fuse cutter. Always make sure there are no twists, [...] provider. Document Revised: 04/07/2022 Document Reviewed: 04/07/2022 [employer] Patient Education 2022 [employer]. Follow Up Care 09/17/2023 14:05:58 With:REID BROOKE Address: [facility] [address] [address] Business (1) When:09/20/2023 15:07:35 Comments:Apply small amount [...] with urologist as instructed by the hospitalist. [facility]01-28-2024 Evaluation + Plan noteExtracted from: Title:ED Note Author:Alejandro Silva M.D. te:09/17/23 1. Encounter for evaluation of Elliott catheter (Z76.89: Persons encountering health services in other specified circumstances) 2. Penile irritation (N48.89: Other specified disorders of penis) Orders: lidocaine topical, 220 mg, 11 mL, Gel-Anny, Topical, Once, Stop date 09/17/23 15:17:00 EST, STAT, Start date 09/17/23 15:17:00 EST Future Appointments Appointment Date:09/18/2023 01:00:00 PM Scheduled Provider: [facility] Type:[facility] ([facility] Future Scheduled Tests Radiology* XR Chest 2 Views 05/15/23 * XR Chest 2 Views 05/15/23 [facility]01-27-[address] [facility]:Result Comment: Electronically Signed By: Kayla Garcia MD\.br\Date and Time Signed: 09/16/23 10:23 [id number] [facility] Comment on above:Result Comment: Electronically Signed By: Kayla Garcia MD\.br\Date and Time Signed: 09/12/23 17:49 [id number] Hospital Discharge instructions Patient Education 08/06/2023 14:18:47 RICE Therapy for Routine Care of Injuries, Ljjo-lw-Gsyc RICE Therapy for Routine Care of Injuries [...] provider. Document Revised: 05/27/2021 Document Reviewed: 05/27/2021 [employer] Patient Education 2022 [employer]. 08/06/2023 14:18:47 Hip Pain Hip Pain The [...] activities that cause pain. General instructions Take rehz-ahx-hwjzcgm and prescription medicines only as told by [...] provider. Document Revised: 12/23/2019 Document Reviewed: 12/23/2019 [employer] Patient Education 2022 [employer]. Follow Up Care 08/06/2023 13:03:18 With:REID BROOKE Address: [facility] [address] [address] Business (1) When:08/09/2023 14:06:25 Comments:Follow-up with your primary care provider in 3 to 5 days. If symptoms worsen, do not improve, or new symptoms arise please report back to emergency department for further evaluation. [facility]12-17-2023 Evaluation + Plan noteExtracted from: Title:ED Note Author:Greyson ENGLE, Paddy Bustos te:08/06/23 Right hip pain (M25.551: Barb n in right hip) Orders: XR Hip 2-3 Views Right + Pelvis Future Appointments Appointment Date:08/16/2023 09:30:00 AM Scheduled Provider:Sukh Harrington DPM [facility] Appointment Type:WC Follow Up Visit ([facility]) Appointment Date:08/24/2023 10:00:00 AM Scheduled Provider:Migue STROUD MD Location:[facility] Appointment Type: Open Future Scheduled Tests Radiology* XR Chest 2 Views 05/15/23 * XR Chest 2 Views 05/15/23 [facility]11-01-2023 Progress note Author Amrik De Guzman [facility] June 21, 2023 12:21pm Note Date/Time June 21, 2023 1 2:21pm [facility] [address] [place] [address] Pulmonology Progress Note Signed Patient: Nicole Lora MR#: [id number] [birth year] : 1960 Acct:[id number] Age/Sex: 63 / M Adm Date: 3 Loc: Room: [address] [place] [address] Type: ADM IN Attending Dr: Alban Arrington [...] 500 / 500 Balance 40 / -1940 -20 / -20 Weight 147.4 kg Labs 06/21/23 06:54 06/21/23 06:54 Assessment/Plan Assessment/Plan (1) Acute on chronic respiratory failure with hypoxia and hypercapnia: (2) Obstructive sleep apnea: (3) Obesity hypoventilation syndrome: (4) Right heart failure: (5) Hypertensive urgency: Plan * Patient is clinically stable, he is following up with pulmonology in [place], and supposed to call for sleep study and arrangement of positive pressure ventilation at home. Otherwise he is being discharged today, no further recommendations from my standpoint Documented By: Amrik De Guzman MD 06/21/231218 Signed By: <Electronically signed by Amrik De Guzman MD> 06/21/23 1221 [facility] Work Phone: 1(210) 914-205011-01-2023 Discharge summary Author Alban Arrington [facility] June 21, 2023 1:58pm Note Date/Time June 21, 2023 1 2:17pm [facility] [address] [place] [address] Discharge Summary Signed Patient: Niocle Lora MR#: [id number] [birth year] : 1960 Acct:[id number] Age/Sex: 63 / M Adm Date: 3 Loc: Room: [address] [place] [address]: Alban Arrington DO Copies to: MD Alban Young, DO~ Providers Date of Discharge: 06/21/23 Discharging Provider: Alban Arrington Primary Care Provider: [...] newly initiated on 4 L nasal cannula plqtgt-nsw-gurjs for ongoing hypoxia. Prior to this he [...] % (Auto) 57.7, Lymph % (Auto) 26.3, Traill % (Auto) 9.9, Eos % (Auto) 5.4, Baso % (Auto) 0.7, Nucleat RBC Rel Count 0.1, Neut # (Auto) 5.5, Lymph # (Auto) 2.5, Traill # (Auto) 0.9 H, Eos # (Auto) [...] kerlix Please keep previously scheduled appointment with lap regulator in [place]. Prescriptions: New lisinopril-hydrochlorothiazide 20-25 mg tablet 1 [...] Week Location: Determined by Patient Ordered By: Ablan Arrington Magnesium (Routine) Timeframe: 1 Week Location: [...] <Electronically signed by Alban Arrington DO> 06/21/23 1358 [facility] Work Phone: 1(539) 182-860710-31-2023 Consult note Author Amrik De Guzman [facility] June 20, 2023 2:43pm Note Date/Time June 20, 2023 2 :43pm [facility] [address] [place] [address] Pulmonology Consult Note Signed Patient: Nicole Lora MR#: [id number] [birth year] : 1960 Acct:[id number] Age/Sex: 63 / M Adm Date: 3 Loc: Room: [address] [place] [address] Type: ADM IN Attending Dr: Alban Arrington DO Copies to: MD Alban Andersen DO Seth M Ruggles, DO~ HPI Date/Time of Consultation: Date of [...] coughing spells for which she went to [facility] emergency room, wastold that he had pneumonia [...] of oxygen, he was discharged home from [facility] on 4 L of oxygen. White count was normal his BUN and creatinine were elevated and was diagnosed with chronic kidney disease even previously at [facility]. I do not have any of his previous x- rays, CT, to review, chest x-ray here showed mild left lower lobe infiltrate possibly fibrotic or atelectatic with some volume loss in the left lung, again no baseline film to compare Review of Systems Review of Systems Review of systems: As mentioned above [facility] Medical History (Updated 06/20/23 @ 14:40 by [...] failure or cor pulmonale. Reportedly echo at [facility] did not report pulmonary hypertension but clinical [...] cm of water while he was at [facility] per his history, will try this again tonight * Patient reported to me seeing pulmonology in [place] who are arranging for sleep study and treatment of obstructive sleep apnea * Will need continued diuretic therapy on discharge in addition to continuous oxygen therapy * Maintain inhaled therapy as started by pulmonology in [place], patient will follow-up with them upon discharge Documented By: Amrik De Guzman MD 06/20/23 1434 Signed By: <Electronically signed by Amrik De Guzman MD> 06/20/23 1443 [facility] Work Phone: 1(363) 171-516210-31-2023 Progress note Author Alban Arrington [facility] June 20, 2023 1:37pm Note Date/Time June 20, 2023 9 :48am [facility] [address] [place] [address] Hospitalist Progress Note Signed Patient: Nicole Lora MR#: [id number] [birth year] : 1960 Acct:[id number] Age/Sex: 63 / M Adm Date: 3 Loc: 3T Room: [address] [place] [address] Type: ADM IN Attending Dr: Alban Arrington [...] 09:00 06/20/23 08:05 Pantoprazole 40 Mg Tablet.Dr PO 06/18/24 08:59 40 mg DAILY JIMMIE Administration [...] chronic hypoxic respiratory failure -Recently discharged from [facility] for pneumonia on 4 L oxygen, no [...] congestive heart failure, unspecified type -Echo at [facility] showed EF of 60 to 65% -Await [...] <Electronically signed by Alban Arrington DO> 06/20/23 3060 [facility] Work Phone: 1(811) 439-332210-30-2023 Progress note Author Alban Arrington [facility] June 19, 2023 10:05am Note Date/Time June 19, 2023 1 0:05am [facility] [address] [place] [address] Event Note Signed Patient: Nicole Lora MR#: [id number] [birth year] : 1960 Acct:[id number] Age/Sex: 63 / M Adm Date: 3 Loc: Room: [address] [place] [address] Type: ADM IN Attending Dr: Alban Arrington [...] signed by Alban Arrington DO> 06/19/23 1005 [facility] Work Phone: 1(726) 840-180810-30-2023 History and physical note Author Alban Arrington [facility] June 19, 2023 5:20am Note Date/Time June 19, 2023 3 :28am [facility] [address] [place] [address] Hospitalist H&P Signed Patient: Nicole Lora MR#: [id number] [birth year] : 1960 Acct:[id number] Age/Sex: 63 / M Adm Date: 3 Loc: Room: [address] [place] [address] Type: ADM IN Attending Dr: Alban Arrington DO Copies to: DO Reid Ferrer DO~ HPI DATE OF EXAMINATION: 06/19/23 CHIEF COMPLAINT: Swelling HISTORY OF PRESENT ILLNESS: This patient is a 63-year-old male recently hospitalized at [facility] and discharged . He was reportedly treated for pneumonia at that time. He was discharged on prednisone and doxycycline. He appears to have been discharged on 4 L of nasal cannula that he is to wear jgkvkf-vrt-bngae. His primary complaint today is worsening edema [...] The patient was subsequently admitted to the [facility] floor for treatment of acute on chronic [...] continued. He only recently was discharged on phbjk-kkg-sijnd 4 L O2. He may have been [...] negative unless noted below or in HPI [facility] Medical History Amputation of one or more [...] % (Auto) 20.2 % (.) 06/18/23 22:08 Traill % (Auto) 9.2 % (.) 06/18/23 22:08 Eos % (Auto) 3.1 % (.) 06/18/23 22:08 Baso % (Auto) 0.7 % (.) 06/18/23 22:08 Nucleat RBC Rel Count 0.1 /100 WBC (0-0.5) 06/18/23 22:08 Neut # (Auto) 4.5 x10E3/uL (1.8-7.7) 06/18/23 22:08 Lymph # (Auto) 1.4 x10E3/uL (1.00-4.8) 06/18/23 22:08 Traill # (Auto) 0.6 x10E3/uL (0.0-0.8) 06/18/23 22:08 [...] pH 5.5 (5.0-9.0) 06/18/23 23:26 Ur Specific Chandler 1.020 (1.001-1.030) 06/18/23 23:26 Urine Protein 100 [...] signed by Alban Arrington DO> 06/19/23 0520 [facility] Work Phone: 1(847) 749-517310-26-2023 Evaluation + Plan noteExtracted from: Title:Discharge Note [...] 11 refills, Not taking Freestyle Sage 2 Freeland, See Instructions Freestyle Sage 2 Sensors, See Instructions, 3 refills gabapentin 600 mg Tab, 600 mg= 1 tab(s), Oral, TID, 11 refills Glucometer, See Instructions Glucometer test strips, See Instructions, 11 refills guaiFENesin 600 mg ER Tab, 1200 mg= 2 tab(s), Oral, BID Insulin Pen Washburn 31g x 8 mm, See Instructions, 4 [...] adapter, 2 puff(s), Inhalation, BID, 6 refills Toujeo Max SoloStar 300 units/mL subcutaneous solution, 40 [...] tab(s), Oral, Daily With When Contact Information [facility] 06/21/2023 09:30 AM EDT Additional Instructions: Ida LYMAN, Pippa Mabry, PUL, KATY Within 2 to 4 weeks [address] [facility] (Heart & Vascular) [place] [address]- Additional Instructions: Call for followup appointment [place] [address]- Business (1) Additional Instructions: Please call the office to make a follow up appiontment. You are new to the office. Thank you. Hypoxia Community-Acquired Pneumonia, Adult, Mvpg-bu-Ampg Extracted from: Title:APSO Note Author:Annabella Goldman Date:06/15/23 [...] pulmonary standpoint Extracted from: Title:PCCM progress note Author:Prem Alex Jr., PA-C Date:06/14/23 1. Acute respiratory [...] EDT, 06/14/23 9:22:00 EDT Addendum by Ida LYMAN, Pippa Mabry on June 14, 2023 15:59:41 EDT I have seen and evaluated the patient with the physician public services assistant. His history, physical exam, assessment and [...] to baseline. - No urgent need for HAND PLEATER - Hold losartan and metformin for AMY [...] O2 We will await pulmonology recommendations Ordered: [facility] Care/Day Moderate 35 Minutes 01864 2. Elevated brain natriuretic peptide (BNP) level (R79.89: Other specified abnormal findings of blood chemistry) despite echo negative for acute findings, cxr was concerning for fluid congestion 3. TC (obstructive sleep apnea) (G47.33: Obstructive sleep apnea (adult) (pediatric)) BiPap qHS and PRN 4. Hyperkalemia (E87.5: Hyperkalemia) 2/2 elevated glucose as well as elevated Cr, improved Status post [facility] Nephrology consulted and following trend control glucose [...] at 50ml/hour. - No urgent need for HAND PLEATER - Hold losartan and metformin for AMY [...] no show. Extracted from: Title:PCCM progress note Author:Prem Alex Jr., PA-C Date:06/13/23 1. Acute respiratory failure with hypoxia [...] on addendum meant to go to DR Echols notes. Extracted from: Title:APSO Note Author:Mingo Pillai DO James e:06/13/23 1. Acute respiratory failure with hypoxia [...] kg over admission weight as well Ordered: [facility] Care/Day High 50 Minutes [id number] 2. Elevated brain natriuretic peptide (BNP) level [...] and evaluated the patient with the physician public services assistant. His history, physical exam, assessment and [...] with above measures. Extracted from: Title:APSO Note Author:Minog Pillai DO e:06/12/23 1. Acute hypoxemic respirato [...] strict I's and O's, daily weights Ordered: [facility] Care/Day High 50 Minutes [id number] 2. Elevated brain natriuretic peptide (BNP) level [...] from: Title:Admission H & P Author:Jose LYMAN, [facility] Date:06/11/23 Acute hypoxemic respiratory failure Elevated [...] BID, # 20 cap(s), Refills(s) 0, Pharmacy: [facility] #[id number], 182, cm, 06/11/23 13:54:00 EDT, Height/Length Dosing, [...] 7 tab(s), Refills(s) 0, [facility]: [id number], 182, cm, 06/11/23 13:54:00 EDT, Height/Length Dosing, 139.6, kg, 06/11/23 13:54:00 EDT, Weight Dosing Automated Diff B-Type Natriuretic Peptide Basic Metabolic Panel Blood Culture Charcoal Blood Culture Charcoal Blood Gas Art, with Lytes, Gluc, Lact CBC w/ Auto Diff Continuous Pulse Oximetry CTA Chest ED Cardiac Monitoring eGFR Lactic Acid Oxygen Therapy PT & PTT Rapid COVID Antigen ([facility]) Saline Lock Insert Troponin 0 Hr. Troponin 3 Hr. Troponin 6 Hr. Troponin 9 Hr. Future Appointments Appointment Date:06/21/2023 09:30:00 AM Scheduled Provider:Sukh Harrington DPM [facility] Appointment Type:WC Follow Up Visit (FT) Appointment Date:08/24/2023 10:00:00 AM Scheduled Provider:Migue STROUD MD Location:[facility] Appointment Type: Open Future Scheduled Tests Radiology* XR Chest 2 Views 05/15/23 * XR Chest 2 Views 05/15/23 [facility]10-22-2023 Hospital Discharge instructions Patient Education 06/11/2023 [...] hypoxia. Follow these instructions at home: Take yhln-cil-ifbdzzv and prescription medicines only as told by [...] provider. Document Revised: 03/08/2022 Document Reviewed: 03/08/2022 [employer] Patient Education 2022 [employer]. 06/11/2023 20:24:39 Community-Acquired Pneumonia, Adult, Xuhe-mu-Tvwt Community-Acquired Pneumonia, Adult Pneumonia is an infection [...] Follow these instructions at home: Medicines Take ssyz-lbt-wkctqva and prescription medicines only as told by [...] cannot use soap and water, use hand fuse cutter. Contact a doctor if: You have a [...] provider. Document Revised: 05/19/2020 Document Reviewed: 05/19/2020 [employer] Patient Education 2022 [employer]. Follow Up Care 06/11/2023 13:47:13 With:Ida LYMAN, AIMEE Castro SUR Address: [address] [facility] ([facility]) [place] [address]- When:2 to 4 weeks Comments:Call for followup appointment With:[facility] Address:Unknown When:06/21/2023 09:30:00 With:Mounika Brooke Address: [address] [place] [address]- Business (1) When: Unknown Comments:Please call the office to make a follow up appiontment. You are new to the office. Thank you. [facility]08-14-2023 Hospital Discharge instructions Follow Up Care 04/03/2023 10:10:15 With:MARLI LYMAN, ЮЛИЯ [place]rena Address: When:Within 3 Month(s) [facility] 12-15-2022 Hospital Discharge instructions Patient Education [...] or polycystic ovarian syndrome (PCOS). Being of Jordanian-Icelandic, -Jordanian, /, or / descent. What are the [...] these instructions at home: General instructions Take vzrf-scd-hkywvcy and prescription medicines only as told by [...] 01/31/2002 Document Revised: 04/24/2017 Document Reviewed: 04/24/2017 [employer] Patient Education 2020 [employer]. Follow Up Care 08/04/2022 13:03:59 With:Migue STROUD Address: [address] [place], [place] [id number] [facility] (1) When:08/07/2022 16:52:09 Comments:Call the [...] at any time to continue your care. [facility]12-15-2022 Evaluation + Plan noteExtracted from: Title:ED Note Author:Mone Martinez DOSue Date:1 10/05/21 Dehydration (E86.0: Dehydrat ion) Left [...] PM Scheduled Provider:Migue STROUD MD Location:[facility] Appointment Type:[facility]08-09-2022 Hospital Discharge instructions Follow Up Care 03/29/2022 14:12:55 [facility] Address: When:Within 1 Month(s) [facility] 07-20-2022 Hospital Discharge instructions Patient Education [...] or polycystic ovarian syndrome (PCOS). Being of Jordanian-Icelandic, -Jordanian, /, or / descent. What are the [...] these instructions at home: General instructions Take kklz-aoj-ftrjrdr and prescription medicines only as told by [...] 01/31/2002 Document Revised: 04/24/2017 Document Reviewed: 04/24/2017 [employer] Patient Education 2020 [employer]. 03/09/2022 01:22:46 COVID-19 COVID-19 COVID-19 is a [...] to fight infection (immunocompromised). Live in a mcfp or long-term care facility. Have a long-term [...] managed at home with rest, fluids, and bslc-zxp-kibcnaz medicines. Treatment for a serious infection usually [...] are safe for you. General instructions Take vrgd-lcf-hzheize and prescription medicines only as told by [...] water are not available, usean alcohol-based hand fuse cutter. ?Avoid touching your mouth, face, eyes, or [...] water are not available, use alcohol-based hand fuse cutter. Stay away from other members of your [...] have a weak immunity, live in a mcfp, or have chronic disease. There is no [...] 09/12/2019 Document Revised: 01/02/2020 Document Reviewed: 09/12/2019 [employer] Patient Education 2019 [employer]. Follow Up Care 03/08/2022 22:47:15 With:Migue STROUD Address: [address] [place] [id number] Business (1) When:03/16/2022 [facility]07-19-2022 Evaluation + Plan noteExtracted from: Title:ED [...] Panel Influenza A&B Ag Rapid COVID Antigen ([facility]) Routine Capillary Glucose POC UA With Cult Reflex XR Chest Single View Future Appointments Appointment Date:03/29/2022 01:00:00 PM Scheduled Provider:Migue STROUD MD Location:[facility] Appointment Type:[facility]07-06-2022 Hospital Discharge instructions Follow Up Care 02/23/2022 13:55:05 With:Migue STROUD MD, [facility] Address: When:Within 3 Month(s) [facility] 05-10-2022 Hospital Discharge instructions Follow Up Care 12/28/2021 14:20:03 With:Migue STROUD MD, [facility] Address: When:Within 2 Month(s) [facility] Evaluation + Plan note Future Appointments Appointment Date:01/11/2022 01:40:00 PM Scheduled Provider:Migue STROUD MD Location:[facility] Appointment Type:[facility] Evaluation + Plan note Future Appointments Appointment Date:03/08/2022 01:20:00 PM Scheduled Provider:Migue STROUD MD Location:[facility] Appointment Type:[facility] Evaluation + Plan note Future Appointments Appointment Date:04/08/2022 09:00:00 AM Scheduled Provider: Location:[facility] Appointment Type:FM Medicare Wellness Subsequent Appointment Date:06/27/2022 02:20:00 PM Scheduled Provider:Migue STROUD MD Location:[facility] Appointment Type:[facility] Evaluation + Plan note Future Appointments Appointment Date:06/27/2022 02:20:00 PM Scheduled Provider:Migue STROUD MD Location:[facility] Appointment Type:[facility] Evaluation + Plan note Future Appointments Appointment Date:10/11/2022 02:20:00 PM Scheduled Provider:Migue STROUD MD Location:[facility] Appointment Type:[facility] Evaluation + Plan note Future Appointments Appointment Date:11/03/2022 10:00:00 AM Scheduled Provider:Migue STROUD MD Location:[facility] Appointment Type:[facility] Evaluation + Plan note Future Appointments Appointment Date:03/07/2023 10:40:00 AM Scheduled Provider:Migue STROUD MD Location:[facility] Appointment Type:[facility] Evaluation + Plan note Future Appointments Appointment Date:04/27/2023 09:40:00 AM Scheduled Provider:Migue STROUD MD Location:[facility] Appointment Type:[facility] Evaluation + Plan note Future Appointments Appointment Date:04/25/2023 03:30:00 PM Scheduled Provider:Smooth Harrington DPM [facility] Appointment Type:WC Follow Up Visit (FT) Appointment Date:04/26/2023 09:30:00 AM Scheduled Provider:Sukh Harrington DPM [facility] Appointment Type:WC Follow Up Visit (FT) Appointment Date:04/27/2023 09:40:00 AM Scheduled Provider:Migue STROUD MD Location:[facility] App[facility]ments Appointment Date:04/26/2023 09:30:00 AM Scheduled Provider:Sukh Harrington DPM [facility] Appointment Type:WC Follow Up Visit (FT) Appointment Date:05/22/2023 01:20:00 PM Scheduled Provider:Mgiue STROUD MD Location:[facility] App[facility]ments Appointment Date:05/01/2023 11:15:00 AM Scheduled Provider: Location[facility] Appointment Type:WC Assessment (FT) Appointment Date:05/02/2023 04:00:00 PM Scheduled Provider:Smooth Harringtno DPM [facility] Appointment Type:WC Follow Up Visit (FT) Appointment Date:05/22/2023 01:20:00 PM Scheduled Provider:Migue STROUD MD Location:[facility] Appointments Appointment Date:05/02/2023 04:00:00 PM Scheduled Provider:Smooth Harrington DPM [facility] Appointment Type:WC Follow Up Visit (FT) Appointment Date:05/22/2023 01:20:00 PM Scheduled Provider:Migue STROUD MD Location:[facility] Future Appointments Appointment Date:05/22/2023 01:20:00 PM Scheduled Provider:Migue STROUD MD Location:[facility] Future Appointments Appointment Date:05/16/2023 08:30:00 AM Scheduled Provider: [facility] App[facility] Type:PUL Pulmonary Function Test (FT) Appointment Date:05/22/2023 01:20:00 PM Scheduled Provider:Migue STROUD MD Location:[facility] Appointment Type: Open Appointment Date:06/05/2023 10:30:00 AM Scheduled Provider:Mary Mendez MD [facility] App[facility]ment Type:Pulmonary Follow Up (FT) Future Scheduled Tests Radiology* XR Chest 2 Views 05/15/23 * XR Chest 2 Views 05/15/23 [facility] Future Appointments Appointment Date:06/05/2023 10:30:00 AM Scheduled Provider:Mary Mendez MD Location[facility] Appointment Type:Pulmonary Follow Up (FT) Appointment Date:06/07/2023 10:15:00 AM Scheduled Provider:Sukh Harrington DPM Location[facility] Appointment Type:WC Follow Up Visit (FT) Appointment Date:08/24/2023 10:00:00 AM Scheduled Provider:Migue STROUD MD Location:[facility] Appointment Type: Open Future Scheduled Tests Radiology* XR Chest 2 Views 05/15/23 * XR Chest 2 Views 05/15/23 [facility] evaluation + Plan note Future Appointments Appointment Date:06/28/2023 09:45:00 AM Scheduled Provider:Sukh Harrington DPM [facility] Appointment Type:WC Follow Up Visit (FT) Appointment Date:08/24/2023 10:00:00 AM Scheduled Provider:Migue STROUD MD Location:[facility] Appointment Type: Open Future Scheduled Tests Radiology* XR Chest 2 Views 05/15/23 * XR Chest 2 Views 05/15/23 [facility] Future Appointments Appointment Date:06/28/2023 11:45:00 AM Scheduled Provider:Sukh Harrington DPM [facility] Appointment Type:WC Follow Up Visit (FT) Appointment Date:08/24/2023 10:00:00 AM Scheduled Provider:Migue STROUD MD Location:[facility] Appointment Type: Open Future Scheduled Tests Radiology* XR Chest 2 Views 05/15/23 * XR Chest 2 Views 05/15/23 [facility] evaluation + Plan note Future Appointments Appointment Date:07/19/2023 10:30:00 AM Scheduled Provider:Sukh Harrington DPM [facility] Appointment Type:WC Follow Up Visit (FT) Appointment Date:08/24/2023 10:00:00 AM Scheduled Provider:Migue STROUD MD Location:[facility] Appointment Type: Open Future Scheduled Tests Radiology* XR Chest 2 Views 05/15/23 * XR Chest 2 Views 05/15/23 [facility] Future Appointments Appointment Date:08/02/2023 10:45:00 AM Scheduled Provider:Sukh Harrington DPM [facility] Appointment Type:WC Follow Up Visit (FT) Appointment Date:08/24/2023 10:00:00 AM Scheduled Provider:Migue STROUD MD Location:[facility] Appointment Type: Open Future Scheduled Tests Radiology* XR Chest 2 Views 05/15/23 * XR Chest 2 Views 05/15/23 [facility] Future Appointments Appointment Date:08/16/2023 09:30:00 AM Scheduled Provider:Sukh Harrington DPM Location[facility] Appointment Type:WC Follow Up Visit (FT) Appointment Date:08/24/2023 10:00:00 AM Scheduled Provider:Migue STROUD MD Location:[facility] Appointment Type: Open Future Scheduled Tests Radiology* XR Chest 2 Views 05/15/23 * XR Chest 2 Views 05/15/23 [facility] Future Appointments Appointment Date:08/24/2023 10:00:00 AM Scheduled Provider:Migue STROUD MD Location:[facility] Appointment Type: Open Appointment Date:08/30/2023 09:15:00 AM Scheduled Provider:Sukh Harrington DPM Location[facility] Appointment Type: Follow Up Visit (FT) Future Scheduled Tests Radiology* XR Chest 2 Views 05/15/23 * XR Chest 2 Views 05/15/23 [facility] Future Appointments Appointment Date:08/30/2023 09:15:00 AM Scheduled Provider:Sukh Harrington DPM Location[facility] Appointment Type:WC Follow Up Visit (FT) Future Scheduled Tests Radiology* XR Chest 2 Views 05/15/23 * XR Chest 2 Views 05/15/23 [facility] [place] Evaluation + Plan note Future Appointments Appointment Date:09/05/2023 03:15:00 PM Scheduled Provider:Smooth Harrington DPM Location[facility] Appointment Type: HBO Eval (FT) Appointment Date:09/13/2023 10:45:00 AM Scheduled Provider:Sukh Harrington DPM Location[facility] Appointment Type:WC Follow Up Visit (FT) Future Scheduled Tests Radiology* XR Chest 2 Views 05/15/23 * XR Chest 2 Views 05/15/23 [facility] Future Appointments Appointment Date:09/13/2023 10:45:00 AM Scheduled Provider:Sukh Harrington DPM Location:[facility] Appointment Type:WC Follow Up Visit (FT) Appointment Date:09/18/2023 01:00:00 PM Scheduled Provider: Location[facility] Appointment Type:WC HBO (FT) Future Scheduled Tests Radiology* XR Chest 2 Views 05/15/23 * XR Chest 2 Views 05/15/23 [facility] Future Appointments Appointment [...] 05/15/23 * XR Chest 2 Views 05/15/23 [facility] Future Appointments Appointment Date:10/05/2023 11:00:00 AM Scheduled Provider: Location:[facility] Appointment Type:URO Nurse Visit Appointment Date:10/18/2023 09:00:00 AM Scheduled Provider:Taz THOMAS MD Location:[facility] Appointment Type:URO New Patient Appointment Date:10/18/2023 09:15:00 AM Scheduled Provider:Sukh Harrington DPM Location[facility] Appointment Type:WC Follow Up Visit (FT) Appointment Date:11/16/2023 09:00:00 AM Scheduled Provider: Location:[facility] Appointment Type:Urology CALL PAT FT Appointment Date:11/20/2023 01:15:00 PM Scheduled Provider: Location:[facility] Appointment Type:Urology FT Future Scheduled Tests Radiology* XR Chest 2 Views 05/15/23 * XR Chest 2 Views 05/15/23 [facility] Future Appointments Appointment Date:10/18/2023 09:00:00 AM Scheduled Provider:Taz THOMAS MD Location:[facility] Appointment Type:URO New Patient Appointment Date:10/18/2023 09:15:00 AM Scheduled Provider:Sukh Harrington DPM [facility] Appointment Type:WC Follow Up Visit (FT) Appointment Date:11/01/2023 02:00:00 PM Scheduled Provider: Location:[facility] Appointment Type:URO Nurse Visit Appointment Date:11/16/2023 09:00:00 AM Scheduled Provider: Location:[facility] Appointment Type:Urology CALL PAT FT Appointment Date:11/20/2023 01:15:00 PM Scheduled Provider: Location:[facility] Appointment Type:Urology FT Future Scheduled Tests Radiology* XR Chest 2 Views 05/15/23 * XR Chest 2 Views 05/15/23 [facility] Laboratoriesaluation + Plan note Future Appointments Appointment Date:11/01/2023 02:00:00 PM Scheduled Provider: Location:[facility] Appointment Type:URO Nurse Visit Appointment Date:11/16/2023 09:00:00 AM Scheduled Provider: Location:[facility] Appointment Type:Urology CALL PAT FT Appointment Date:11/20/2023 12:00:00 PM Scheduled Provider: Location:[facility] Appointment Type:Urology FT Appointment Date:11/20/2023 01:15:00 PM Scheduled Provider: Location:[facility] Appointment Type:Urology FT Future Scheduled Tests Radiology* XR Chest 2 Views 05/15/23 * XR Chest 2 Views 05/15/23 [facility] evaluation + Plan note Future Appointments Appointment Date:11/16/2023 09:00:00 AM Scheduled Provider: Location:[facility] Appointment Type:Urology CALL PAT FT Appointment Date:11/20/2023 12:00:00 PM Scheduled Provider: Location:[facility] Appointment Type:Urology FT Appointment Date:11/20/2023 01:15:00 PM Scheduled Provider: Location:[facility] Appointment Type:Urology FT Future Scheduled Tests Radiology* XR Chest 2 Views 05/15/23 * XR Chest 2 Views 05/15/23 [facility] Evaluation + Plan note Future Appointments Appointment Date:12/15/2023 01:30:00 PM Scheduled Provider: Location:[facility] Appointment Type:URO Nurse Visit Appointment Date:12/19/2023 01:00:00 PM Scheduled Provider:Smooth Harrington DPM [facility] Appointment Type:WC Follow Up Visit (FT) Appointment Date:12/20/2023 09:00:00 AM Scheduled Provider:Sukh Harrington DPM Location:[facility] Appointment Type:WC Follow Up Visit (FT) Appointment Date:01/31/2024 10:30:00 AM Scheduled Provider: Location:[facility] Appointment Type:Urology CALL PAT FT Appointment Date:02/05/2024 01:15:00 PM Scheduled Provider: Location:[facility] Appointment Type:Urology FT Future Scheduled Tests Radiology* XR Chest 2 Views 05/15/23 * XR Chest 2 Views 05/15/23 [facility] Future Appointments Appointment Date:12/19/2023 01:00:00 PM Scheduled Provider:Smooth Harrington DPM [facility] Appointment Type:WC Follow Up Visit (FT) Appointment Date:12/20/2023 11:15:00 AM Scheduled Provider:Sukh Harrington DPM Location[facility] Appointment Type:WC Follow Up Visit (FT) Appointment Date:01/12/2024 01:00:00 PM Scheduled Provider: Location:[facility] Appointment Type:URO Nurse Visit Appointment Date:01/31/2024 10:30:00 AM Scheduled Provider: Location:[facility] Appointment Type:Urology CALL PAT FT Appointment Date:02/05/2024 01:15:00 PM Scheduled Provider: Location:[facility] Appointment Type:Urology FT Future Scheduled Tests Radiology* XR Chest 2 Views 05/15/23 * XR Chest 2 Views 05/15/23 [facility] Evaluation + Plan note Future Appointments Appointment Date:12/26/2023 01:45:00 PM Scheduled Provider:Smooth Harrington DPM [facility] Appointment Type:WC Follow Up Visit (FT) Appointment Date:01/12/2024 01:00:00 PM Scheduled Provider: Location:[facility] Appointment Type:URO Nurse Visit Appointment Date:01/31/2024 10:30:00 AM Scheduled Provider: Location:[facility] Appointment Type:Urology CALL PAT FT Appointment Date:02/05/2024 01:15:00 PM Scheduled Provider: Location:[facility] Appointment Type:Urology FT Future Scheduled Tests Radiology* XR Chest 2 Views 05/15/23 * XR Chest 2 Views 05/15/23 [facility] Future App[facility]ments Appointment Date:01/02/2024 03:45:00 PM Scheduled Provider:Smooth Harrington DPM [facility]oint[facility] Type:WC Follow Up Visit (FT) Appointment Date:01/12/2024 01:00:00 PM Scheduled Provider: Location:[facility] Appointment Type:URO Nurse Visit Appointment Date:01/31/2024 10:30:00 AM Scheduled Provider: Location:[facility] Appointment Type:Urology CALL PAT FT Appointment Date:02/05/2024 01:15:00 PM Scheduled Provider: Location:[facility] Appointment Type:Urology FT Future Scheduled Tests Radiology* XR Chest 2 Views 05/15/23 * XR Chest 2 Views 05/15/23 [facility] Future Appointments Appointment Date:01/09/2024 02:45:00 PM Scheduled Provider:Smooth Harrington DPM [facility] Appointment Type:WC Follow Up Visit (FT) Appointment Date:01/12/2024 01:00:00 PM Scheduled Provider: Location:[facility] Appointment Type:URO Nurse Visit Appointment Date:01/31/2024 10:30:00 AM Scheduled Provider: Location:[facility] Appointment Type:Urology CALL PAT FT Appointment Date:02/05/2024 01:15:00 PM Scheduled Provider: Location:[facility] Appointment Type:Urology FT Future Scheduled Tests Radiology* XR Chest 2 Views 05/15/23 * XR Chest 2 Views 05/15/23 [facility] Future Appointments Appointment Date:01/17/2024 10:00:00 AM Scheduled Provider:Sukh Harrington DPM Location[facility] Appointment Type:WC Follow Up Visit (FT) Appointment Date:01/31/2024 10:30:00 AM Scheduled Provider: Location:[facility] Appointment Type:Urology CALL PAT FT Appointment Date:02/05/2024 01:15:00 PM Scheduled Provider: Location:[facility] Appointment Type:Urology FT Future Scheduled Tests Radiology* XR Chest 2 Views 05/15/23 * XR Chest 2 Views 05/15/23 [facility] Evaluation + Plan note Future Appointments Appointment Date:01/23/2024 01:00:00 PM Scheduled Provider:Smooth Harrington DPM [facility] Appointment Type:WC Follow Up Visit (FT) Appointment Date:01/31/2024 10:30:00 AM Scheduled Provider: Location:[facility] Appointment Type:Urology CALL PAT FT Appointment Date:02/05/2024 01:15:00 PM Scheduled Provider: Location:[facility] Appointment Type:Urology FT Future Scheduled Tests Radiology* XR Chest 2 Views 05/15/23 * XR Chest 2 Views 05/15/23 [facility] Future Appointments Appointment Date:01/31/2024 09:45:00 AM Scheduled Provider:Sukh Harrington DPM [facility] Appointment Type:WC Follow Up Visit (FT) Appointment Date:01/31/2024 10:30:00 AM Scheduled Provider: Location:[facility] Appointment Type:Urology CALL PAT FT Appointment Date:02/05/2024 01:15:00 PM Scheduled Provider: Location:[facility] Appointment Type:Urology FT Future Scheduled Tests Radiology* XR Chest 2 Views 05/15/23 * XR Chest 2 Views 05/15/23 [facility] Future Appointments Appointment Date:02/05/2024 01:00:00 PM Scheduled Provider: Location:[facility] Appointment Type:Urology FT Appointment Date:02/14/2024 10:15:00 AM Scheduled Provider:Sukh Harrington DPM [facility] Appointment Type:WC Follow Up Visit (FT) Future Scheduled Tests Radiology* XR Chest 2 Views 05/15/23 * [facility] Appointment Date:02/14/2024 08:30:00 AM Scheduled Provider: Location:[facility] Appointment Type:URO Nurse Visit Appointment Date:02/14/2024 10:15:00 AM Scheduled Provider:Sukh Harrington DPM [facility] Appointment Type:WC Follow Up Visit (FT) Appointment Date:02/28/2024 07:45:00 AM Scheduled Provider:Taz THOMAS MD Location:[facility] Appointment Type:URO Office Visit Future Scheduled Tests Radiology* XR Chest 2 Views 05/15/23 * XR Chest 2 Views 05/15/23 [facility] Future Appointments Appointment Date:02/14/2024 08:30:00 AM Scheduled Provider: Location:[facility] Appointment Type:URO Nurse Visit Appointment Date:02/28/2024 07:45:00 AM Scheduled Provider:Taz THOMAS MD [facility] Type:URO Office Visit Appointment Date:02/28/2024 10:45:00 AM Scheduled Provider:Sukh Harrington DPM [facility] Appointment Type:WC Follow Up Visit (FT) Future Scheduled Tests Radiology* XR Chest 2 Views 05/15/23 * XR Chest 2 Views 05/15/23 [facility] evaluation + Plan note Future Appointments Appointment Date:02/15/2024 08:30:00 AM Scheduled Provider: Location:[facility] Appointment Type:URO Nurse Visit Appointment Date:02/28/2024 07:45:00 AM Scheduled Provider:Taz THOMAS MD Location:[facility] Appointment Type:URO Office Visit Appointment Date:02/28/2024 10:45:00 AM Scheduled Provider:Sukh Harrington DPM [facility] Appointment Type:WC Follow Up Visit (FT) Future Scheduled Tests Radiology* XR Chest 2 Views 05/15/23 * XR Chest 2 Views 05/15/23 [facility] evaluation + Plan note Future Appointments Appointment Date:02/28/2024 07:45:00 AM Scheduled Provider:Taz THOMAS MD Location:[facility] Appointment Type:URO Office Visit Appointment Date:02/28/2024 10:45:00 AM Scheduled Provider:Sukh Harrington DPM [facility] Appointment Type:WC Follow Up Visit (FT) Future Scheduled Tests Radiology* XR Chest 2 Views 05/15/23 * XR Chest 2 Views 05/15/23 [facility] evaluation + Plan note Future Appointments Appointment Date:03/06/2024 10:45:00 AM Scheduled Provider:Sukh Harrington DPM [facility] Appointment Type:WC Follow Up Visit (FT) Appointment Date:09/04/2024 03:15:00 PM Scheduled Provider:Taz THOMAS MD Location:[facility] Appointment Type:URO Office Visit Future Scheduled Tests Laboratory* Basic Metabolic Panel 02/28/24 Radiology* XR Chest 2 Views 05/15/23 * XR Chest 2 Views 05/15/23 [facility] evaluation + Plan note Future Appointments Appointment Date:03/13/2024 10:30:00 AM Scheduled Provider:Sukh Harrington DPM [facility] Appointment Type:WC Follow Up Visit (FT) Appointment Date:09/04/2024 03:15:00 PM Scheduled Provider:Taz THOMAS MD Location:[facility] Appointment Type:URO Office Visit Future Scheduled Tests Laboratory* Basic Metabolic Panel 02/28/24 Radiology* XR Chest 2 Views 05/15/23 * XR Chest 2 Views 05/15/23 [facility] Future Appointments Appointment Date:03/13/2024 10:30:00 AM Scheduled Provider:Sukh Harrington DPM [facility] Appointment Type:WC Follow Up Visit (FT) Appointment Date:09/04/2024 03:15:00 PM Scheduled Provider:Taz THOMAS MD Location:[facility] Appointment Type:URO Office Visit Future Scheduled Tests Radiology* XR Chest 2 Views 05/15/23 * XR Chest 2 Views 05/15/23 [facility] Future Appointments Appointment Date:09/04/2024 03:15:00 PM Scheduled Provider:Taz THOMAS MD Location:[facility] Appointment Type:URO Office Visit [facility] evaluation note* Diagnosis Onset Date Resolution Status Edema acute Hypertension acute Hypoxemia acute Volume overload [facility] Work Phone: evaluation note* Diagnosis Onset Date Resolution Status Acute on chronic respiratory failure with hypoxia and hypercapnia acute Edema acute Hypertension acute Hypertensive urgency acute Hypoxemia acute Obesity hypoventilation syndrome acute Obstructive sleep apnea acut e Respiratory failure acute Right heart failure acute Volume overload acute [facility] Work Phone: evaluation note* Diagnosis Onset Date Resolution Status Acute respiratory distress a cute CHF (congestive heart failure) acute COPD (chronic obstructive pulmonary disease) acute Lymphedema acute [facility] Work Phone: evaluation note* Diagnosis Onset Date Resolution Status Acute on chronic respiratory failure with hypoxia and hypercapnia acute Acute respiratory distress a cute AMY (acute kidney injury) [place] CHF (congestive heart failure) acute CKD (chronic kidney disease) stage 3, GFR 30-59 ml/min acute COPD (chronic obstructive pulmonary disease) acute Diabetes mellitus, type 2 ac [place] Hyperkalemia acute Hypertension acute Lymphedema acute Obesity hypoventilation syndrome acute Urine retention acute [facility] Work Phone: Evaluation note* Diagnosis Onset Date Resolution Status CHF (congestive heart failure) acute CKD (chronic kidney disease) stage 3, GFR 30-59 ml/min acute COPD (chronic obstructive pulmonary disease) acute Diabetes mellitus, type 2 ac [place] Hypertension acute Lymphedema acute Obesity hypoventilation syndrome [...] disease) acute Diabetes mellitus, type 2 ac [place] Diastolic heart failure acut e Edema acute Hypernatremia acute Hypertension acute [id number] acute Lymphedema acute Metabolic alkalosis with respiratory acidosis acute Obesity hypoventilation syndrome acute Type 2 diabetes mellitus wit h diabetic chronic kidney disease acute Urine retention acute Hyperkalemia resolved [facility] Work Phone: Evaluation note* Diagnosis 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, unspecified proliferative retinopathy type ([facility]/HCC)- Primary [facility]* Diagnosis Encounter for Medicare annual wellness exam- Primary Type 2 diabetes mellitus with hyperglycemia, without long-term current use of insulin ([facility]) RLS (restless legs syndrome) Restless legs syndrome (RLS) Chronic hypoxemic respiratory failure (CMS/HCC) Chronic respiratory failure Stage 3b chronic kidney disease (HCC) ([facility]) 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 Morbid obesity ([facility]/HCC) Morbid obesity BMI 40.0-44.9, adult ([facility]) Other diabetic neurological complication associated with type 2 diabetes mellitus ([facility]) TC (obstructive sleep apnea) Obstructive sleep apnea (adult) (pediatric) Restless leg syndrome Restless legs syndrome (RLS) Acute on chronic respiratory failure with hypoxia and hypercapnia ([facility]/HCC) Obesity hypoventilation syndrome (CMS/[facility]) Obesity hypoventilation syndrome Hypertension, unspecified type ([facility]) Varicose veins of both lower extremities, unspecified whether complicated Gastroesophageal reflux disease, unspecified whether esophagitis present 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 ([facility]) Mixed hyperlipidemia ([facility]) Mixed hyperlipidemia Long-term insulin use ([facility]) Type 2 diabetes mellitus with hyperglycemia, with long-term current use of insulin ([facility])- Primary Chronic cough Cough Chest wall pain Painful respiration Non-recurrent acute serous otitis media of right ear documented in this encounter [facility]* Diagnosis Encounter for Medicare annual wellness exam- Primary Type 2 diabetes mellitus with hyperglycemia, without long-term current use of insulin ([facility]) RLS (restless legs syndrome) Restless legs syndrome (RLS) Chronic hypoxemic respiratory failure ([facility]) Chronic respiratory failure Stage 3b chronic kidney disease (HCC) ([facility]) 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 Morbid obesity ([facility]) Morbid obesity BMI 40.0-44.9, adult ([facility]) Other diabetic neurological complication associated with type 2 diabetes mellitus ([facility]) TC (obstructive sleep apnea) Obstructive sleep apnea (adult) (pediatric) Restless leg syndrome Restless legs syndrome (RLS) Acute on chronic respiratory failure with hypoxia and hypercapnia ([facility]) Obesity hypoventilation syndrome ([facility]) Obesity hypoventilation syndrome Hypertension, unspecified type ([facility]) Varicose veins of both lower extremities, unspecified whether complicated Gastroesophageal reflux disease, unspecified whether esophagitis present 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 ([facility]) Mixed hyperlipidemia ([facility]) Mixed hyperlipidemia Long-term insulin use ([facility]) Acute pain of right shoulder- Primary Chronic hypoxemic respiratory failure ([facility]) Chronic respiratory failure Hypertension, unspecified type ([facility]) BMI 40.0-44.9, adult ([facility]) Morbid obesity ([facility]) Morbid obesity Type 2 diabetes mellitus with hyperglycemia, with long-term current use of insulin ([facility]) documented in this encounter [facility]* Diagnosis Encounter for Medicare annual wellness exam- Primary Type 2 diabetes mellitus with hyperglycemia, without long-term current use of insulin ([facility]) RLS (restless legs syndrome) Restless legs syndrome (RLS) Chronic hypoxemic respiratory failure ([facility]/HCC) Chronic respiratory failure Stage 3b chronic kidney disease (HCC) ([facility] 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 Morbid obesity ([facility]) Morbid obesity BMI 40.0-44.9, adult ([facility]) Other diabetic neurological complication associated with type 2 diabetes mellitus ([facility]) TC (obstructive sleep apnea) Obstructive sleep apnea (adult) (pediatric) Restless leg syndrome Restless legs syndrome (RLS) Acute on chronic respiratory failure with hypoxia and hypercapnia ([facility]) Obesity hypoventilation syndrome ([facility]) Obesity hypoventilation syndrome Hypertension, unspecified type ([facility]) Varicose veins of both lower extremities, unspecified whether complicated Gastroesophageal reflux disease, unspecified whether esophagitis present 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 ([facility] Mixed hyperlipidemia ([facility]) Mixed hyperlipidemia Long-term insulin use ([facility]) Difficulty walking- Primary Difficulty in walking Acute on chronic respiratory failure with hypoxia and hypercapnia ([facility]) Hypertension, unspecified type ([facility]) Type 2 diabetes mellitus with hyperglycemia, with long-term current use of insulin ([facility]) Morbid obesity ([facility]) Morbid obesity BMI 40.0-44.9, adult ([facility]) Type 2 diabetes mellitus with hyperglycemia, with long-term current use of insulin ([facility]) documented in this encounter [facility]* Diagnosis Encounter for Medicare annual wellness exam- Primary Type 2 diabetes mellitus with hyperglycemia, without long-term current use of insulin ([facility]) RLS (restless legs syndrome) Restless legs syndrome (RLS) Chronic hypoxemic respiratory failure ([facility]) Chronic respiratory failure Stage 3b chronic kidney disease (HCC) ([facility] 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 Morbid obesity ([facility]) Morbid obesity BMI 40.0-44.9, adult ([facility]) Other diabetic neurological complication associated with type 2 diabetes mellitus ([facility]) TC (obstructive sleep apnea) Obstructive sleep apnea (adult) (pediatric) Restless leg syndrome Restless legs syndrome (RLS) Acute on chronic respiratory failure with hypoxia and hypercapnia ([facility]) Obesity hypoventilation syndrome ([facility]) Obesity hypoventilation syndrome Hypertension, unspecified type ([facility]) Varicose veins of both lower extremities, unspecified whether complicated Gastroesophageal reflux disease, unspecified whether esophagitis present 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 ([facility]) Mixed hyperlipidemia ([facility]) Mixed hyperlipidemia Long-term insulin use ([facility]) Type 2 diabetes mellitus with hyperglycemia, with long-term current use of insulin ([facility])- Primary Insulin long-term use ([facility]) Encounter for long-term (current) use of insulin Vitamin D deficiency Encounter for dietary consultation Hyperlipemia, mixed ([facility]) Mixed hyperlipidemia Primary hypertension ([facility]) Unspecified essential hypertension Class 2 severe obesity due to excess calories with serious comorbidity and body mass index (BMI) of 38.0 to 38.9 in adult ([facility]) documented in this encounter [facility]* Diagnosis Encounter for Medicare annual wellness exam- Primary Type 2 diabetes mellitus with hyperglycemia, without long-term current use of insulin ([facility]) RLS (restless legs syndrome) Restless legs syndrome (RLS) Chronic hypoxemic respiratory failure ([facility]) Chronic respiratory failure Stage 3b chronic kidney disease (HCC) ([facility] 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 Morbid obesity ([facility]) Morbid obesity BMI 40.0-44.9, adult ([facility]) Other diabetic neurological complication associated with type 2 diabetes mellitus ([facility]) TC (obstructive sleep apnea) Obstructive sleep apnea (adult) (pediatric) Restless leg syndrome Restless legs syndrome (RLS) Acute on chronic respiratory failure with hypoxia and hypercapnia ([facility]) Obesity hypoventilation syndrome ([facility]) Obesity hypoventilation syndrome Hypertension, unspecified type ([facility]) Varicose veins of both lower extremities, unspecified whether complicated Gastroesophageal reflux disease, unspecified whether esophagitis present 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 ([facility] Mixed hyperlipidemia ([facility]) Mixed hyperlipidemia Long-term insulin use ([facility]) 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, unspecified proliferative retinopathy type ([facility])- Primary documented in this encounter [facility]* Diagnosis 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, unspecified proliferative retinopathy type ([facility])- Primary 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 1 diabetes mellitus ([facility]) documented in this encounter [facility]* Diagnosis 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, unspecified proliferative retinopathy type ([facility])- Primary documented in this encounter [facility]* Diagnosis Encounter for Medicare annual wellness exam- Primary Type 2 diabetes mellitus with hyperglycemia, without long-term current use of insulin ([facility]) RLS (restless legs syndrome) Restless legs syndrome (RLS) Chronic hypoxemic respiratory failure ([facility]) Chronic respiratory failure Stage 3b chronic kidney disease (HCC) ([facility]) 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 Morbid obesity ([facility]) Morbid obesity BMI 40.0-44.9, adult ([facility]) Other diabetic neurological complication associated with type 2 diabetes mellitus ([facility]) TC (obstructive sleep apnea) Obstructive sleep apnea (adult) (pediatric) Restless leg syndrome Restless legs syndrome (RLS) Acute on chronic respiratory failure with hypoxia and hypercapnia ([facility]) Obesity hypoventilation syndrome ([facility]) Obesity hypoventilation syndrome Hypertension, unspecified type ([facility]) Varicose veins of both lower extremities, unspecified whether complicated Gastroesophageal reflux disease, unspecified whether esophagitis present 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 ([facility] Mixed hyperlipidemia ([facility]) Mixed hyperlipidemia Long-term insulin use ([facility]) documented in this encounter [facility]* Diagnosis Encounter for Medicare annual wellness exam- Primary Type 2 diabetes mellitus with hyperglycemia, without long-term current use of insulin ([facility]) RLS (restless legs syndrome) Restless legs syndrome (RLS) Chronic hypoxemic respiratory failure ([facility]) Chronic respiratory failure Stage 3b chronic kidney disease (HCC) ([facility]) 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 Morbid obesity ([facility]) Morbid obesity BMI 40.0-44.9, adult ([facility]) Other diabetic neurological complication associated with type 2 diabetes mellitus ([facility]) TC (obstructive sleep apnea) Obstructive sleep apnea (adult) (pediatric) Restless leg syndrome Restless legs syndrome (RLS) Acute on chronic respiratory failure with hypoxia and hypercapnia ([facility]) Obesity hypoventilation syndrome ([facility]) Obesity hypoventilation syndrome Hypertension, unspecified type ([facility]) Varicose veins of both lower extremities, unspecified whether complicated Gastroesophageal reflux disease, unspecified whether esophagitis present 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 ([facility]) Mixed hyperlipidemia ([facility]) Mixed hyperlipidemia Long-term insulin use ([facility]) Type 2 diabetes mellitus with hyperglycemia, with long-term current use of insulin ([facility])- Primary Insulin long-term use ([facility]) Encounter for long-term (current) use of insulin Vitamin D deficiency Encounter for dietary consultation Hyperlipemia, mixed ([facility]) Mixed hyperlipidemia Primary hypertension ([facility]) Unspecified essential hypertension documented in this encounter [facility]* Diagnosis Encounter for Medicare annual wellness exam- Primary Type 2 diabetes mellitus with hyperglycemia, without long-term current use of insulin ([facility]) RLS (restless legs syndrome) Restless legs syndrome (RLS) Chronic hypoxemic respiratory failure ([facility]) Chronic respiratory failure Stage 3b chronic kidney disease (HCC) ([facility]) 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 Morbid obesity ([facility]) Morbid obesity BMI 40.0-44.9, adult ([facility]) Other diabetic neurological complication associated with type 2 diabetes mellitus TC (obstructive sleep apnea) Obstructive sleep apnea (adult) (pediatric) Restless leg syndrome Restless legs syndrome (RLS) Acute on chronic respiratory failure with hypoxia and hypercapnia ([facility]) Obesity hypoventilation syndrome ([facility]) Obesity hypoventilation syndrome Hypertension, unspecified type ([facility]) Varicose veins of both lower extremities, unspecified whether complicated Gastroesophageal reflux disease, unspecified whether esophagitis present 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 Mixed hyperlipidemia ([facility]) Mixed hyperlipidemia Long-term insulin use ([facility]) Chronic hypoxemic respiratory failure ([facility])- Primary Chronic respiratory failure Acute cough Chest congestion Other symptoms involving respiratory system and chest Type 2 diabetes mellitus with hyperglycemia, with long-term current use of insulin ([facility]) Long-term insulin use ([facility]) Difficulty walking Difficulty in walking Leg weakness, bilateral Muscle weakness (generalized) BMI 35.0-35.9,adult Morbid obesity ([facility]) Morbid obesity Type 2 diabetes mellitus with diabetic chronic kidney disease ([facility]) Chronic kidney disease, stage 3b (HCC) ([facility]) Essential (primary) hypertension ([facility] Unspecified essential hypertension Acquired absence of left foot ([facility]) Need for immunization against influenza Need for prophylactic vaccination and inoculation against influenza Need for pneumococcal vaccination Need for prophylactic vaccination against streptococcus pneumoniae (pneumococcus) documented in this encounter [facility]* Diagnosis Encounter for Medicare annual wellness exam- Primary Type 2 diabetes mellitus with hyperglycemia, without long-term current use of insulin ([facility]) RLS (restless legs syndrome) Restless legs syndrome (RLS) Chronic hypoxemic respiratory failure ([facility]) Chronic respiratory failure Stage 3b chronic kidney disease (HCC) ([facility] 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 Morbid obesity ([facility]) Morbid obesity BMI 40.0-44.9, adult ([facility]) Other diabetic neurological complication associated with type 2 diabetes mellitus TC (obstructive sleep apnea) Obstructive sleep apnea (adult) (pediatric) Restless leg syndrome Restless legs syndrome (RLS) Acute on chronic respiratory failure with hypoxia and hypercapnia ([facility]) Obesity hypoventilation syndrome ([facility]) Obesity hypoventilation syndrome Hypertension, unspecified type ([facility]) Varicose veins of both lower extremities, unspecified whether complicated Gastroesophageal reflux disease, unspecified whether esophagitis present 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 Mixed hyperlipidemia ([facility]) Mixed hyperlipidemia Long-term insulin use ([facility]) Primary osteoarthritis of both knees- Primary Type 2 diabetes mellitus with hyperglycemia, with long-term current use of insulin ([facility]) documented in this encounter [facility]* Diagnosis Encounter for Medicare annual wellness exam- Primary Type 2 diabetes mellitus with hyperglycemia, without long-term current use of insulin ([facility]) RLS (restless legs syndrome) Restless legs syndrome (RLS) Chronic hypoxemic respiratory failure ([facility]) Chronic respiratory failure Stage 3b chronic kidney disease (HCC) ([facility]) 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 Morbid obesity ([facility]) Morbid obesity BMI 40.0-44.9, adult ([facility]) Other diabetic neurological complication associated with type 2 diabetes mellitus TC (obstructive sleep apnea) Obstructive sleep apnea (adult) (pediatric) Restless leg syndrome Restless legs syndrome (RLS) Acute on chronic respiratory failure with hypoxia and hypercapnia ([facility]) Obesity hypoventilation syndrome ([facility]) Obesity hypoventilation syndrome Hypertension, unspecified type ([facility]) Varicose veins of both lower extremities, unspecified whether complicated Gastroesophageal reflux disease, unspecified whether esophagitis present 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 Mixed hyperlipidemia ([facility]) Mixed hyperlipidemia Long-term insulin use ([facility]) Type 2 diabetes mellitus with hyperglycemia, with long-term current use of insulin ([facility])- Primary Insulin long-term use ([facility]) Encounter for long-term (current) use of insulin Vitamin D deficiency Encounter for dietary consultation Hyperlipemia, mixed ([facility]) Mixed hyperlipidemia Primary hypertension ([facility]) Unspecified essential hypertension documented in this encounter [facility]* Diagnosis Encounter for Medicare annual wellness exam- Primary Type 2 diabetes mellitus with hyperglycemia, without long-term current use of insulin ([facility]) RLS (restless legs syndrome) Restless legs syndrome (RLS) Chronic hypoxemic respiratory failure ([facility]) Chronic respiratory failure Stage 3b chronic kidney disease (HCC) ([facility]) 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 Morbid obesity ([facility]) Morbid obesity BMI 40.0-44.9, adult ([facility]) Other diabetic neurological complication associated with type 2 diabetes mellitus TC (obstructive sleep apnea) Obstructive sleep apnea (adult) (pediatric) Restless leg syndrome Restless legs syndrome (RLS) Acute on chronic respiratory failure with hypoxia and hypercapnia ([facility]) Obesity hypoventilation syndrome ([facility]) Obesity hypoventilation syndrome Hypertension, unspecified type ([facility]) Varicose veins of both lower extremities, unspecified whether complicated Gastroesophageal reflux disease, unspecified whether esophagitis present 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 Mixed hyperlipidemia ([facility]) Mixed hyperlipidemia Long-term insulin use ([facility]) Muscle cramps- Primary Varicose veins of both lower extremities, unspecified whether complicated Type 2 diabetes mellitus with hyperglycemia, with long-term current use of insulin ([facility]) Essential (primary) hypertension ([facility]) Unspecified essential hypertension documented in this encounter [facility]* Diagnosis Encounter for Medicare annual wellness exam- Primary Type 2 diabetes mellitus with hyperglycemia, without long-term current use of insulin ([facility]) RLS (restless legs syndrome) Restless legs syndrome (RLS) Chronic hypoxemic respiratory failure ([facility]) Chronic respiratory failure Stage 3b chronic kidney disease (HCC) ([facility]) 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 Morbid obesity ([facility]) Morbid obesity BMI 40.0-44.9, adult ([facility]) Other diabetic neurological complication associated with type 2 diabetes mellitus TC (obstructive sleep apnea) Obstructive sleep apnea (adult) (pediatric) Restless leg syndrome Restless legs syndrome (RLS) Acute on chronic respiratory failure with hypoxia and hypercapnia (CMS/HCC) Obesity hypoventilation syndrome (CMS/HCC) Obesity hypoventilation syndrome Hypertension, unspecified type ([facility]/HCC) Varicose veins of both lower extremities, unspecified whether complicated Gastroesophageal reflux disease, unspecified whether esophagitis present 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 Mixed hyperlipidemia (CMS/HCC) Mixed hyperlipidemia Long-term insulin use ([facility]) Anxiousness- Primary Anxiety state, unspecified documented in this encounter [facility] HealthcareEvaluation [facility]* Diagnosis Encounter for Medicare annual wellness exam- Primary Type 2 diabetes mellitus with hyperglycemia, without long-term current use of insulin ([facility]) RLS (restless legs syndrome) Restless legs syndrome (RLS) Chronic hypoxemic respiratory failure (HCC) Chronic respiratory failure Stage 3b chronic kidney disease ([facility]) 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 Morbid obesity ([facility]) Morbid obesity BMI 40.0-44.9, adult ([facility]) Other diabetic neurological complication associated with type 2 diabetes mellitus (HCC) TC (obstructive sleep apnea) Obstructive sleep apnea (adult) (pediatric) Restless leg syndrome Restless legs syndrome (RLS) Acute on chronic respiratory failure with hypoxia and hypercapnia (HCC) Obesity hypoventilation syndrome ([facility]) Obesity hypoventilation syndrome Hypertension, unspecified type [...] (HCC) Long-term insulin use (HCC) Morbid obesity ([facility]) Morbid obesity BMI 36.0-36.9,adult documented in this encounter [facility] HealthcareEvaluation [facility]* Diagnosis Encounter for Medicare annual wellness exam- Primary Type 2 diabetes mellitus with hyperglycemia, without long-term current use of insulin ([facility]) RLS (restless legs syndrome) Restless legs syndrome (RLS) Chronic hypoxemic respiratory failure (HCC) Chronic respiratory failure Stage 3b chronic kidney disease ([facility]) 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 Morbid obesity ([facility]) Morbid obesity BMI 40.0-44.9, adult ([facility]) Other diabetic neurological complication associated with type 2 diabetes mellitus (HCC) TC (obstructive sleep apnea) Obstructive sleep apnea (adult) (pediatric) Restless leg syndrome Restless legs syndrome (RLS) Acute on chronic respiratory failure with hypoxia and hypercapnia (HCC) Obesity hypoventilation syndrome ([facility]) Obesity hypoventilation syndrome Hypertension, unspecified type [...] of insulin (HCC) Hyperosmolar hyperglycemic state (HHS) ([facility]) Muscle cramps Long-term insulin use (HCC) Difficulty walking Difficulty in walking Essential (primary) hypertension Unspecified essential hypertension Morbid obesity ([facility]) Morbid obesity BMI 38.0-38.9,adult documented in this [...] No change in regimen. [facility] Narrative No data available for this section [facility] Discharge instructions No data available for this section [facility] Discharge instructions Additional Instructions Continue [...] kerlix Please keep previously scheduled appointment with lap regulator in [place] Work Phone: Progress note No data available for this section [facility] - Outpatient (Routine) - Authorized Specialty Diagnoses / Procedures Referred By Contac t Referred To Contact Physical Therapy Diagnoses Difficulty in walking, not elsewhere classified Other symptoms and signs involving the musculoskeletal system Acquired absence of left foot (CMS/HCC) Procedures MD PHYS THERAPY EVALUATION Mounika Brooke MD [address] [place] [address] Phone: tel: fax: Mone Mcguire, PT [address] [place] [address] Phone: tel: fax: Referral ID Status Reason Start Date Expiration Date V isits Requested Visits Authorized [id number] Authorized 12/11/2024 06/09/2025 99 99 [facility] [...] 2 Diastolic heart failure Edema Hypernatremia Hypertension [id number] Lymphedema Metabolic alkalosis with respiratory acidosis Obesity [...] Hood Zacarias MD Other Provider Active Start: [email or web address] 2023 End: October 12, 2023 Yesi Murphy [...] Migue Stroud MD Primary Care Provider Active Sports Specialist Relationship Specialty Start Date End Date Mounika Brooke MD [address] [place] [address] PCP - General Family Medicine 07/27/23 Team Status: Active Member Role Status Dates Mounika Brooke MD Primary Care Provider Active Start: October 06, 2023 Jason Mercado , Emergency Provider Active St art: October 06, 2023 Tera Nevarez , DO Admit Provider, Atte nding Provider Active Start: October 06, 2023 Team Status: Inactive Member Role Status Dates Mounika Brooke MD Primary Care Provider Active Start: October 13, 2023 End: October 13, 2023 Yesi Murphy MD Attending Provider Active S tart: October 13, 2023 End: October 13, 2023 Sports Specialist Relationship Specialty Start Date End Date Mounika Brooke MD [address] [place] [address] PCP - General Family Medicine 10/23/23 [place] [address] [place] [address] Physician Nephrology 10/31/23 Team Status: Inactive Member Role Status Dates Mounika Brooke MD Primary Care Provider Active Start: November 11, 2023 End: November 17, 2023 Tera Nevarez DO Admit Provider Active Start: November 11, 2023 End: November 17, 2023 Hood Zacarias MD Other Provider Active Start: [facility] 2023 End: November 17, 2023 SOFIE Ardon Other Provider Active Start: November 11, 2023 End: November 17, 2023 Bladimir Story MD Other Provider Active Start: [facility] 2023 End: November 17, 2023 Immanuel Pozo MD Other Provider Active Star t: November 11, 2023 End: November 17, 2023 Satnam Guevara MD Other Provider Active Start: November 11, 2023 End: November 17, 2023 Gigi Cooper MD Other Provider Active Start: [facility] 2023 End: November 17, 2023 Manish Fu [...] Hood Zacarias MD Other Provider Active Start: [facility] 2023 SOFIE Ardon Other Provider Active Start: November 12, 2023 Bladimir Story MD Attending Provider, Other Provider Active Start: November 12, 2023 Immanuel Pozo MD Other Provider Active Star t: November 12, 2023 Satnam Guevara MD Other Provider Active Start: November 12, 2023 Gigi Cooper MD Other Provider Active Start: [facility] 2023 Sports Specialist Relationship Specialty Start Date End Date Mounika Brooke MD [address] [place] [address] PCP - General Family Medicine 10/23/23 [place] [address] [facility] [address] [place] [address] Physician Nephrology 10/31/23 Sports Specialist Relationship Specialty Start Date End Date Mounika Brooke MD [address] [place] [address] PCP - General Family Medicine 10/23/23 [place] [address] [facility] [address] [place] [address] Physician Nephrology 10/31/23 Sports Specialist Relationship Specialty Start Date End Date Mounika Brooke MD [address] [place] [address] PCP - General Family Medicine 07/27/23 Sports Specialist Relationship Specialty Start Date End Date Mounika Brooke MD [address] [place] [address] PCP - General Family Medicine 07/27/23 Sports Specialist Relationship Specialty Start Date End Date Mounika Brooke MD [address] [place] [address] PCP - General Family Medicine 07/27/23 Mounika Brooke MD [address] [place] [address] PCP - [facility] 01/20/24 08/20/24 Sports Specialist Relationship Specialty Start Date End Date Mounika Brooke MD [address] [place] [address] PCP - General Family Medicine 07/27/23 Mounika Brooke MD [address] [place] [address] PCP - [facility] 01/20/24 08/20/24 Jennifer Short PA [address] [place] [address] Physician Commercial Lines Manager Family Medicine 06/24/24 Sports Specialist Relationship Specialty Start Date End Date Mounika Brooke MD [address] [place] [address] PCP - General Family [facility] 07/27/23 Mounika Brooke MD [address] [place] [address] PCP - [facility] 01/20/24 08/20/24 Sports Specialist Relationship Specialty Start Date End Date Mounika Brooke MD [address] [place] [address] PCP - General Family [facility] 07/27/23 Mounika Brooke MD [address] [place] [address] [facility] 01/20/24 08/20/24 Jennifer Short PA [address] [place] [address] Physician Commercial Lines Manager Family Medicine 06/24/24 Sports Specialist Relationship Specialty Start Date End Date Mounika Brooke MD [address] [place] [address] PCP - General Family [facility] 07/27/23 Mounika Brooke MD [address] [place] [address] [facility] 01/20/24 08/20/24 Jennifer Short PA [address] [place] [address] Physician Commercial Lines Manager Family Medicine 06/24/24 Sports Specialist Relationship Specialty Start Date End Date Mounika Brooke MD [address] [place] [address] PCP - [facility] Family [facility] 07/27/23 Mounika Brooke MD [address] [place] [address] [facility] 01/20/24 08/20/24 Jennifer Short PA [address] [place] [address] Physician Commercial Lines Manager Family Medicine 06/24/24 Sports Specialist Relationship Specialty Start Date End Date Mounika Brooke MD [address] [place] [address] PCP [facility] 07/27/23 Mounika Brooke MD [address] [place] [address] [facility] 01/20/24 08/20/24 Jennifer Short PA [address] [place] [address] Physician Commercial Lines Manager Family Medicine 06/24/24 Sports Specialist Relationship Specialty Start Date End Date Mounika Brooke MD [address] [place] [address] PCP - General Family Medicine 07/27/23 Mounika Brooke MD [address] [place] [address] [facility] 01/20/24 08/20/24 Jennifer Short PA [address] [place] [address] Physician Commercial Lines Manager Family Medicine 06/24/24 Sports Specialist Relationship Specialty Start Date End Date Mounika Brooke MD [address] [place] [address] PCP - General Family Medicine 07/27/23 Mounika Brooke MD [address] [place] [address] [facility] 01/20/24 08/20/24 Jennifer Short PA [address] [place] [address] Physician Commercial Lines Manager Family Medicine 06/24/24 Sports Specialist Relationship Specialty Start Date End Date Mounika Brooke MD [address] [place] [address] PCP - General Family Medicine 07/27/23 Sports Specialist Relationship Specialty Start Date End Date Mounika Brooke MD [address] [place] [address] PCP - General [facility] Medicine 07/27/23 Sports Specialist Relationship Specialty Start Date End Date Mounika Brooke MD [address] [place] [address] PCP - General [facility] Medicine 07/27/23 Sports Specialist Relationship Specialty Start Date End Date Mounika Brooke MD [address] [place] [address] PCP - [facility] Medicine 07/27/23 Sports Specialist Relationship Specialty Start Date End Date Mounika Brooke MD [address] [place] [address] PCP - General [facility] Medicine 07/27/23 Sports Specialist Relationship Specialty Start Date End Date Mounika Brooke MD [address] [place] [address] PCP - General [facility] Medicine 07/27/23 Sports Specialist Relationship Specialty Start Date End Date Mounika Brooke MD [address] [place] [address] PCP - General Family Medicine 07/27/23 Jennifer Short PA [address] [place] [address] Physician Commercial Lines Manager Family Medicine 06/24/24 Sports Specialist Relationship Specialty Start Date End Date Mounika Brooke MD [address] [place] [address] PCP - General Family Medicine 07/27/23 Jennifer Short PA [address] [place] [address] Physician Commercial Lines Manager Family Medicine 06/24/24 Sports Specialist Relationship Specialty Start Date End Date Mounika Brooke MD [address] [place] [address] PCP - General Family Medicine 07/27/23 Mounika Brooke MD [address] [place] [address] PCP - [facility] 11/19/24 Jennifer Short PA [address] [place] [address] Physician Commercial Lines Manager Family Medicine 06/24/24 Janice Kevin LSW Pocketbook Maker Family Medicine 12/04/24 Sports Specialist Relationship Specialty Start Date End Date Mounika Brooke MD [address] [place] [address] PCP - General Family Medicine 07/27/23 Mounika Brooke MD [address] [place] [address] PCP - [facility] 11/19/24 Jennifer Short PA [address] [place] [address] Physician Commercial Lines Manager Family Medicine 06/24/24 Janice Kevin LSW Pocketbook Maker Family Medicine 12/04/24 12/10/24 Sports Specialist Relationship Specialty Start Date End Date Mounika Brooke MD [address] [place] [address] PCP - General Family Medicine 07/27/23 Mounika Brooke MD [address] [place] [address] PCP - [facility] 11/19/24 Jennifer Short PA [address] [place] [address] Physician Commercial Lines Manager Family Medicine 06/24/24 Sports Specialist Relationship Specialty Start Date End Date Mounika Brooke MD [address] [place] [address] PCP - General Family Medicine 07/27/23 Mounika Brooke MD [address] [place] [address] PCP - [facility] 11/19/24 Jennifer Short PA [address] [place] [address] Physician Commercial Lines Manager Family Medicine 06/24/24 Sports Specialist Relationship Specialty Start Date End Date Mounika Brooke MD [address] [place] [address] PCP - General Family Medicine 07/27/23 Mounika Brooke MD [address] [place] [address] PCP - [facility] 11/19/24 Jennifer Short PA [address] [place] [address] Physician Commercial Lines Manager Family Medicine 06/24/24 Sports Specialist Relationship Specialty Start Date End Date Mounika Brooke MD [address] [place] [address] PCP - General Family Medicine 07/27/23 Mounika Brooke MD [address] [place] [address] PCP - [facility] 11/19/24 Jennifer Short PA [address] [place] [address] Physician Commercial Lines Manager Family Medicine 06/24/24 Sports Specialist Relationship Specialty Start Date End Date Mounika Brooke MD [address] [place] [address] PCP - General Family Medicine 07/27/23 Mounika Brooke MD [address] [place] [address] PCP - [facility] 11/19/24 Jennifer Short PA [address] [place] [address] Physician Commercial Lines Manager Family Medicine 06/24/24 Sports Specialist Relationship Specialty Start Date End Date Mounika Brooke MD [address] [place] [address] PCP - General Family Medicine 07/27/23 Mounika Brooke MD [address] [place] [address] PCP - [facility] 11/19/24 Jennifer Short PA [address] [place] [address] Physician Commercial Lines Manager Family Medicine 06/24/24 Sports Specialist Relationship Specialty Start Date End Date Mounika Brooke MD [address] [place] [address] PCP - General Family Medicine 07/27/23 Mounika Brooke MD [address] [place] [address] PCP - [facility] 11/19/24 Jennifer Short PA [address] [place] [address] Physician Commercial Lines Manager Family Medicine 06/24/24 Sports Specialist Relationship Specialty Start Date End Date Mounika Brooke MD [address] [place] [address] PCP - General Family Medicine 07/27/23 Mounika Brooke MD [address] [place] [address] PCP - [facility] 11/19/24 Jennifer Short PA [address] [place] [address] Physician Commercial Lines Manager Family Medicine 06/24/24 Sports Specialist Relationship Specialty Start Date End Date Mounika Brokoe MD [address] [place] [address] PCP - General Family Medicine 07/27/23 Mounika Brooke MD [address] [place] [address] PCP - [facility] 11/19/24 Jennifer Short PA [address] [place] [address] Physician Commercial Lines Manager Family Medicine 06/24/24 Sports Specialist Relationship Specialty Start Date End Date Mounika Brooke MD [address] [place] [address] PCP - General Family Medicine 07/27/23 Mounika Brooke MD [address] [place] [address] PCP - [facility] 11/19/24 Jennifer Short PA [address] [place] [address] Physician Commercial Lines Manager Family Medicine 06/24/24 Sports Specialist Relationship Specialty Start Date End Date Mounika Brooke MD [address] [place] [address] PCP - General Family Medicine 07/27/23 Mounika Brooke MD [address] [place] [address] PCP - [facility] 11/19/24 Jennifer Short PA [address] [place] [address] Physician Commercial Lines Manager Family Medicine 06/24/24 Jacqueline Vega, RAFAEL [address] [place] [address] Registered Nurse Family Medicine 04/09/25 Janice Kevin LSW [address] [place] [address] Pocketbook Maker Family Medicine 04/10/25 Goals (unrecognized section and content) Goals may [...] section and content) DATE CREATED AUTHOR 10/29/2023 [facility] DATE CREATED AUTHOR AUTHOR'S ORGANIZ ATION 11/30/2023 [facility] DATE CREATED AUTHOR AUTHOR'S ORGANIZ ATION 03/14/2024 [facility] DATE CREATED AUTHOR AUTHOR'S ORGANIZ ATION 06/24/2024 [facility] DATE CREATED AUTHOR AUTHOR'S ORGANIZ [...] CREATED AUTHOR AUTHOR'S ORGANIZ ATION 01/01/2025 [facility] DATE CREATED AUTHOR AUTHOR'S ORGANIZ ATION 01/17/2025 [facility] DATE CREATED AUTHOR AUTHOR'S ORGANIZ ATION 03/09/2025 [facility] DATE CREATED AUTHOR AUTHOR'S ORGANIZ ATION 03/10/2025 [facility] DATE CREATED AUTHOR AUTHOR'S ORGANIZ ATION 03/14/2025 [facility] EPIC Source Comments (unrecognize d section and content) In the event this informatio n is protected by the Federal Confidentiality of Alcohol and Drug Abuse Patient Records regulations: The Federal rules restrict any use of the information to criminally investigate or prosecute any alcohol or drug abuse patient.[facility] HealthcareIn the event this information is protected by the Federal Confidentiality of Alcohol and Drug Abuse Patient Records regulations: The Federal rules restrict any use of the information to criminally investigate or prosecute any alcohol or drug abuse patient.[facility] HealthcareIn the event this information is protected by the Federal Confidentiality of Alcohol and Drug Abuse Patient Records regulations: The Federal rules restrict any use of the information to criminally investigate or prosecute any alcohol or drug abuse patient.[facility] Reason for Visit (unrecogniz ed section and [...] BE BASED ON THE PRIMARY CLINICAL RECORDS. [employer] provides no warranty or guarantee of the accuracy or completeness of information in this document.
== END 2025-04-30 12:58 | disposition home or self-care (01) ==
LOC: WC 12:58
PROVIDERS: Visit Provider Physician Assistant
DX: E11.621 Type 2 diabetes mellitus with foot ulcer (principal); L97.422 Non-pressure chronic ulcer of left heel and midfoot with fat layer exposed
CPT/HCPCS: 29445; A6213

== ENCOUNTER 2025-05-05 16:03 | Outpatient (OUT) | payer MEDICARE, SELFPAY ==
--- OUTSIDE RECORDS SUMMARY | 2025-04-29 11:00 | XMS_ITS | Encounter Summary ---
Author Organization [facility] Address [address] [facility] [place] [address] Care Team Providers Care Mobile Paint Specialist Name Role Phone Mounika Brooke MD Primary Care Provider [phone] Jennifer Orta Unavailable [phone] Mounika Brooke MD Unavailable [phone] Annette Vega RN Unavailable [phone] Janice Kevin PUBLIC SPEAKING COACH Unavailable Reason for Visit * Reason Comments Med Refill Encounter Details Date Type Department Care Team ([facility] Contact Info) Description 04/29/2025 11:00 AM EDT Office Visit [facility] [place] [facility] [address] [place] [phone] Mounika Brooke MD [address] [place], [place] [id number] Grief (Primary Dx); Anxiousness; Neck pain; Type 2 diabetes mellitus with hyperglycemia, with long-term current use of insulin (HCC); Essential (primary) hypertension ; Morbid obesity (CMS-HCC); BMI 36.0-36.9,adult Social History Tobacco Use Types Packs/Day Years [...] Recorded Patient Health Questionnaire-2 Score 1 12/04/2024 [facility] [place] [facility] - Occupational Stress [...] any time in the past [address] [facility], were you homeless or living in a [facility]p (including now)? No 04/11/2025 Sex and Gender Information Value Date Recorded Sex Assigned at Not on file Legal Sex Male 7:40 PM EDT Gender Identity Not on file Sexual Orientation Not on file documented as of this encounter Last Filed Vital Signs Vital Sign Reading Time Taken Comments Blood Pressure 112/60 04/29/2025 11:28 AM EDT Pulse 89 04/29/2025 11:28 AM EDT Temperature 36.2 C (97.2 F) 04/29/2025 11:28 AM EDT Respiratory Rate - - Oxygen Saturation 95% 04/29/2025 11:28 AM EDT Inhaled Oxygen Concentration - - Weight 120 kg (263 lb 12.8 oz) 04/29/2025 11:28 AM EDT Height 180.3 cm (5' 11 ) 04/29/2025 11:28 AM EDT Body Mass Index 36.79 04/29/2025 11:28 AM EDT documented in this encounter Progress Notes * Mounika Brooke MD - 04/29/2025 11:00 AM EDT Images from the original note were not included. Subjective Patient ID: [place] Wood[place] is a 65 y.o. male who presents for Med Refill. HPI Pt here for acute visit. States his daughter recently . She was battling cancer and other health issues, but quickly. Since then, has been more tearful, crying at times. Does have limited family support. Is currently taking cymbalta w/o side effects. Also c/o neck that has been present for the last few days. Describes as tight, tension sensation that starts in his neck and radiates up his head. Denies injury or trauma. Will take tylenol that helps some. Review of Systems General: Denies fever, chills, fatigue, MINER CV: Denies CP, palpitations or swelling in legs Resp: denies cough, SOB or wheezing GI: Denies abd pain/n/v/c/d Skin: Denies rash Neuro: Denies LH or dizziness Objective Blood pressure 112/60, pulse 89, temperature 97.2 ??F, height 5' 11 , weight 263 lb 12.8 oz, SpO2 95%. Body mass index is 36.79 kg/m??. Physical Exam General: alert & oriented, NAD Head: NC/AT Oral Cavity: MMM Skin: warm, dry Heart: RRR, No m/r/g, S1S2 nml Lungs: CTA b/l Abdomen: soft, ND/NT, BS wnl Musculoskeletal: abnormal gait Extremities: L foot in boot with dressing in place Neurological: nonfocal Psych: tearful, crying at times Assessment/Plan [place] was seen today for med refill. Diagnoses and all orders for this visit: Grief (Primary) - will increased cymbalta dose - pt declines referral for counseling at this time Anxiousness - DULoxetine (Cymbalta) [address] capsule; Take 2 capsules (120 mg) by mouth Daily - as above Neck pain - cyclobenzaprine (Flexeril) 10 MG tablet; Take 1 tablet (10 mg) by mouth at bedtime Discussed sx tx, side effects of meds and concerning sx to monitor for. Type 2 diabetes mellitus with hyperglycemia, with long-term current use of insulin (HCC) Stable, continue to monitor. No change in regimen. Continue to follow w/ specialists Essential (primary) hypertension Stable, continue to monitor. No change in regimen. Morbid obesity ([facility]-HCC) - continue to monitor weight BMI 36.0-36.9,adult documented in this encounter Plan of Treatment Not on file documented as of this encounter Visit Diagnoses Diagnosis Grief- Primary Adjustment disorder with depressed mood Anxiousness Anxiety state, unspecified Neck pain Cervicalgia Type 2 diabetes mellitus with hyperglycemia, with long-term current use of insulin (HCC) Essential (primary) hypertension Unspecified essential hypertension Morbid obesity ([facility]-HCC) Morbid obesity BMI 36.0-36.9,adult documented in this encounter Care Teams Mobile Paint Specialist Relationship Specialty Start Date End Date Mounika Brooke MD [address] [place] [address] PCP - General Family Medicine 07/27/23 Mounika Brooke MD [address] [place] [address] PCP - Devoted 11/19/24 Jennifer Orta PA [address] [place] [address] Physician [facility] 06/24/24 Annette Vega, RN [address] [place] [address] Registered Nurse Family Medicine 04/09/25 Janice Kevin LSW [address] [place] [address] Executive Chairman Family Medicine 04/10/25 documented as of this encounter
--- OUTSIDE RECORDS SUMMARY | 2025-05-05 16:05 | XMS_ITS | Encounter Summary ---
Author Organization [facility] Address [address] [place] [address] Care Team Providers Care Water And Gas Helper Name Role Phone Mounika Brooke MD Primary Care Provider [phone] Deann Calles LPN Unavailable Mounika Brooke MD Unavailable Jennifer Orta Unavailable [phone] Mounika Brooke MD Unavailable [phone] Janice Kevin INJECTION WAX MOLDER Unavailable Annette Vega RN Unavailable [phone] Janice Kevin INJECTION WAX MOLDER Unavailable Encounter Details Date Type Department Care [...] QTC Calculation(Bazett) : 441 ms Calculated P [place] : 53 degrees Calculated R [place] : -76 degrees Calculated T [place] : 65 degrees Sinus rhythm Left anterior fascicular block Abnormal ECG no stemi Confirmed by DARNELL YIN MD ([id number]), school photograph editor ANNETTE ROSALES ([id number]) on 10/24/2023 10:36:37 AM NAME : MONTRELL LORA PID : [id number] : 1960 Gender : Male Race : ORD : [id number] Procedure Date : Oct 23 2023 20:16:04 Edit Date : Oct 24 2023 10:36:39 Diagnosis: Sinus rhythm Left anterior fascicular block Abnormal ECG no stemi Confirmed by DARNELL YIN MD ([id number]), school photograph editor ANNETTE ROSALES ([id number]) on 10/24/2023 10:36:37 AM Test Reason : Other - Specify Location : 402 : [facility] [id number] Overread By : DARNELL YIN MD Edited By : ANNETTE ROSALES Referred By : , Acquired by : [id number], Procedure Note Radiology, Radiologist, MD - 10/24/2023 Ventricular Rate : 77 BPM Atrial Rate : 78 BPM P-R Interval : 180 ms QRS Duration : 97 ms Q-T Interval : 389 ms QTC Calculation(Bazett) : 441 ms Calculated P [place] : 53 degrees Calculated R [place] : -76 degrees Calculated T [place] : 65 degrees Sinus rhythm Left anterior fascicular block Abnormal ECG no stemi Confirmed by DARNELL YIN MD ([id number]), school photograph editor ANNETTE ROSALES ([id number]) on10/24/2023 10:36:37 AM NAME : MONTRELL LORA PID : [id number] : 1960 Gender : Male Race : ORD : [id number] Procedure Date : Oct 23 2023 20:16:04 Edit Date : Oct 24 2023 10:36:39 Diagnosis: Sinus rhythm Left anterior fascicular block Abnormal ECG no stemi Confirmed by DARNELL YIN MD ([id number]), school photograph editor ANNETTE ROSALES ([id number]) on10/24/2023 10:36:37 AM Test Reason : Other - Specify Location : 402 : [facility] [id number] Overread By : DARNELL YIN MD Edited By : ANNETTE ROSALES Referred By : , Acquired by : [id number], us Generic External Data Provider ECG ORDERABLES F inal Result [facility] documented in this encounter Visit Diagnoses Not on filedocumented in this encounter Care Teams Water And Gas Helper Relationship Specialty Start Date End Date Mounika Brooke MD [address] [place] [address] PCP - General Family Medicine 07/27/23 Mounika Brooke MD [address] [place] [address] PCP - [facility] 01/20/24 08/20/24 Mounika Brooke MD [address] [place] [address] PCP - [facility] 11/19/24 Deann Calles LPN [address] [place] [address] Licensed Practical Nurse Family Medicine 09/26/2302/27 Jennifer Orta PA [address] [place] [address] Physician Automation Consultant Family Medicine 06/24/24 Janice Kevin LSW [address] [place] [address] Italian Teacher Family Medicine 12/04/24 12/10/24 Annette Vega, RN [address] [place] [address] Registered Nurse Family Medicine 04/09/25 Janice Kevin LSW [address] [place] [address] Italian Teacher Family Medicine 04/10/25 documented as of this encounter
--- OUTSIDE RECORDS SUMMARY | 2025-05-05 16:05 | XMS_ITS | Encounter Summary ---
Author Organization [facility] Address [address] [facility] [place] [address] Care Team Providers Care Refinery Operator Light Ends Recovery Name Role Phone Mounika Brooke MD Primary Care Provider [phone] Jennifer Orta Unavailable [phone] Mounika Brooke MD Unavailable Annette Vega RN Unavailable [phone] Janice Kevin KNIFE SETTER GRINDER MACHINE Unavailable Encounter Details Date Type Department Care Team (Late st Contact Info) Description 04/29/2025 Bamboo flowsheet [facility] [address] [place] [address] Mounika Brooke MD [address] [place] [address] Social History Tobacco Use Types Packs/Day Years [...] Recorded Patient Health Questionnaire-2 Score 1 12/04/2024 [facility] - Occupational Stress Questionnaire Answer Date Recorded [...] any time in the past 12 m [facility], were you homeless or living in a fpc (including now)? No 04/11/2025 Sex and Gender Information Value Date Recorded Sex Assigned at Not on file Legal Sex Male 7:40 PM EDT Gender Identity Not on file Sexual Orientation Not on file documented as of this encounter Plan of Treatment Not on file documented as of this encounter Visit Diagnoses Not on filedocumented in this encounter Care Teams Refinery Operator Light [employer]ds Recovery Relationship Specialty Start Date End Date Mounika Brooke MD [address] [place] [address] PCP - General Family Medicine 07/27/23 Mounika Brooke MD [address] [place] [address] PCP - [facility] 11/19/24 Jennifer Orta PA [address] [place] [address] Physician Brasswind Instrument Repairer Family Medicine 06/24/24 Annette Vega, RN [address] [place] [address] Registered Nurse Family Medicine 04/09/25 Janice Kevin LSW [address] [place] [address] Front End Engineer Family Medicine 04/10/25 documented as of this encounter
--- OUTSIDE RECORDS SUMMARY | 2025-05-05 16:05 | XMS_ITS | Encounter Summary ---
Author Organization [facility] Address [address] [place] [address] Care Team Providers Care Deadener Name Role Phone Mounika Brooke MD Primary Care Provider [phone] Jennifer Orta Unavailable [phone] Mounika Brooke MD Unavailable [phone] Annette Vega RN Unavailable [phone] Janice Kevin OVEN UNLOADER Unavailable Encounter Details Date Type Department Care Team (Latest Contact Info) Description 04/29/2025 Travel Social History Tobacco Use Types Packs/Day Years [...] Recorded Patient Health Questionnaire-2 Score 1 12/04/2024 [facility] Occupat ional [facility] - Occupational Stress [...] any time in the past 12 m [facility], were you homeless or living in a [facility] (including now)? No 04/11/2025 Sex and Gender Information Value Date Recorded Sex Assigned at Not on file Legal Sex Male 7:40 PM EDT Gender Identity Not on file Sexual Orientation Not on file documented as of this encounter Plan of Treatment Not on file documented as of this encounter Visit Diagnoses Not on filedocumented in this encounter Care Teams Deadener Relationship Specialty Start Date End Date Mounika Brooke MD [address] [place] [address] PCP - General Family Medicine 07/27/23 Mounika Brooke MD [address] [place] [address] PCP - [facility] 11/19/24 Jennifer Orta PA [address] [place] [address] Physician Program Director Substance Abuse Family Medicine 06/24/24 Annette Vega, RAFAEL [address] [place] [address] Registered Nurse Family Medicine 04/09/25 Janice Kevin LSW [address] [place] [address] Master Pilot Family Medicine 04/10/25 documented as of this encounter
--- OUTSIDE RECORDS SUMMARY | 2025-05-05 16:05 | XMS_ITS | Clinical Summary ---
Author Organization [facility] Address [address] [place] [address] Care Team Providers Care Diving Fisher Name Role Phone Mounika Brooke MD Primary Care Provider Jennifer Orta Unavailable Mounika Brooke MD Unavailable Annette Vega RN Unavailable [phone] Janice Kevin ESCROW CLERK Unavailable Allergies Active Allergy Reactions Criticality Noted Date Comments Penicillamine Unknown 06/13/2023 Penicillins Rash Medium 12/01/2014 Medications albuterol HFA 90 mcg/act inhaler Inhale 2 puffs every 4 (four) hours if needed. 11/04/19 23 Active Continuous Blood Gluc Diesel Truck Driver (FreeStyle Sage 3 [place]) deviceIndication s:Type 2 diabetes mellitus with hyperglycemia, [...] before bedtime. 90 tablet 3 12/26/19 25 Active linaGLIPtin (Tradjenta) 5 MG tabletIndication s:Type 2 diabetes mellitus with hyperglycemia, with long-term current use of insulin (HCC) Take 1 tablet (5 mg) by mouth Daily 90 tablet 1 12/26/19 25 025 Active insulin regular (HumuLIN R U-500 KWIKPEN) 500 UNIT/ML CONCENTRATED injectionIndicat ions:Type 2 diabetes mellitus with hyperglycemia, with long-term current use of insulin ([facility]) Inject 50 Units under the skin in the morning and 50 Units in the evening and 50 Units before bedtime. 27 mL 1 12/26/19 25 025 Active hydrALAZINE (Apresoline) 10 MG tabletIndication s:Anxiousness Take 1 tablet (10 mg) by mouth every 12 (twelve) hours 180 tablet 3 01/23/20 25 026 Active Additional Information Patient not taking.Reported on 04/29/2025 glucose blood (BlueStripe SoftwareTouch Verio) test stripIndications :Type 2 diabetes mellitus with hyperglycemia, with long-term current use of insulin (HCC) USE TO TEST BLOOD SUGARS THREE TIMES A DAY. 300 each 2 03/13/20 25 Active Alcohol Swabs (Alcohol Prep) 70 % pads USE TO TEST BLOOD SUGAR 3 TIMES PER DAY 12/22/19 25 Active Blood Glucose Monitoring Suppl (OneTouch Verio Flex System) w/Device kit USE DIRECTED TO TEST BLOOD SUGAR 12/25/19 25 Active NovoLOG FLEXPEN 100 UNIT/ML pen 03/07/20 25 Active Basaglar KwikPen 100 UNIT/ML pen Inject 30 Units under the skin in the morning and 30 Units before bedtime. 03/07/20 25 Active B-D UF III MINI PEN NEEDLES 31G X 5 MM [facility] USE TO INJECT INSULIN UP TO 3 TIMES PER DAY 12/22/19 25 Active cyclobenzaprine (Flexeril) 10 MG tabletIndication s:Neck pain Take 1 tablet (10 mg) by mouth at bedtime 30 tablet 04/29/20 25 Active DULoxetine (Cymbalta) [address] capsuleIndicatio ns:Anxiousness Take 2 capsules (120 mg) by mouth Daily 180 capsule 3 04/29/20 25 026 Active DULoxetine (Cymbalta) [address] capsuleIndicatio ns:Anxiousness Take 1 capsule (60 mg) by mouth Daily 90 capsule 3 01/23/20 25 025 Discontin ued(Reord er) Active Problems Problem Noted Date Diagnosed Date [...] Encounters Date Type Department Care Team Description 04/29/2025 11:00 AM EDT Office Visit [place] [address] [place] [address] Mounika Brooke MD Grief (Primary Dx); Anxiousness; Neck pain; Type 2 diabetes mellitus with hyperglycemia, with long-term current use of insulin (HCC); Essential (primary) hypertension ; Morbid obesity ([facility]-H[facility]); BMI 36.0-36.9,adult 04/29/2025 Bamboo flowsheet [facility] [address] [place] [address] Mounika Brooke MD 04/29/2025 Travel 04/28/2025 Patient Outreach [place] [address] [place] [address] Janice Kevin LSW 04/22/2025 Patient Outreach [place] [address] [place] [address] Annette Vega, RAFAEL 04/14/2025 Patient Outreach [place] [address] [place] [address] Janice Kevin LSW 04/11/2025 Patient Outreach [place] [address] [place] [address] Annette Vega, RAFAEL 04/09/2025 Patient Outreach [place] [address] [place] [address] Annette Vega, RAFAEL 04/08/2025 Patient Outreach [place] [address] [place] [address] Janice Kevin LSW 04/02/2025 Patient Outreach [place] [address] [place] [address] Annette Vega, RN 03/31/2025 Patient Outreach [place] [address] [place] [address] Annette Vega, RAFAEL 03/26/2025 Orders Only [facility] [address] [place] [address] Kayla Sweeney MD 03/26/2025 Patient Outreach [place] [address] [place] [address] Annette Vega, RAFAEL 03/24/2025 Patient Outreach [place] [address] [place] [address] Annette Vega, RAFAEL 03/24/2025 Patient Outreach [place] [address] [place] [address] Janice Kevin LSW 03/24/2025 Telephone [facility] [place] [address] [place] [address] Mounika Brooke MD Care Coordination 03/19/2025 Patient Outreach [place] [address] [place] [address] Janice Kevin LSW 03/17/2025 Patient Outreach [place] [address] [place] [address] Annette Vega, RAFAEL 03/14/2025 Patient Outreach [address] [place] [address] Janice Kevin LSW 03/13/2025 12:20 PM EDT Office Visit [place] [address] [place] [address] Mounika Brooke MD Hospital discharge follow-up (Primary Dx); Type 2 diabetes mellitus with hyperglycemia, with long-term current use of insulin (HCC); Hyperosmolar hyperglycemic state ([facility]) (HCC); Muscle cramps; Long-term insulin use (HCC); Difficulty walking; Essential (primary) hypertension ; Morbid obesity ([facility]); BMI 38.0-38.9,adult 03/13/2025 Telephone [place] [address] [place] [address] Mounika Brooke MD Care Coordination 03/13/2025 Bamboo flowsheet [place] [address] [place] [address] Mounika Brooke MD 03/13/2025 Travel 03/11/2025 Patient Outreach [place] [address] [place] [address] Tarun GreciaCHUCK lobo 02/05/2025 12:20 PM EDT Office Visit [place] [address] [place] [address] Mounika Brooke MD Chronic hypoxemic respiratory failure (HCC) (Primary Dx); Leg weakness, bilateral; Essential (primary) hypertension ; Difficulty walking; Type 2 diabetes mellitus with hyperglycemia, with long-term current use of insulin (HCC); Long-term insulin use (HCC); Morbid obesity ([facility]); BMI 36.0-36.9,adult 02/05/2025 Travel 02/05/2025 Telephone [place] [address] [place] [address] Aggie Toribio Care Coordination from Last 3 Months Immunizations Immunization Administration [...] Recorded Patient Health Questionnaire-2 Score 1 12/04/2024 [facility] [place] of Occupat ional Health - Occupational Stress [...] were you homeless or living in a skilled nursing (including now)? No 04/11/2025 Sex and Gender [...] F) 04/29/2025 11:28 AM EDT Respiratory Rate 18 09/04/2024 2:00 PM EST Oxygen Saturation 95% 04/29/2025 11:28 AM EDT Inhaled Oxygen Concentration - - Weight 120 kg (263 lb 12.8 oz) 04/29/2025 11:28 AM EDT Height 180.3 cm (5' 11 ) 04/29/2025 11:28 AM EDT Body Mass Index 36.79 04/29/2025 11:28 AM EDT Plan of Treatment Health Maintenance Due Date Last Done Comments CT Colonography 1959 Colonoscopy 1959 Colorectal Cancer Screening 1959 FIT-DNA 1959 FIT 1959 FOBT 1959 Sigmoidoscopy 1959 Diabetes: Hemoglobin A1C 12/03/2024 025, 06/21/2024, 10/24/2023 Influenza Vaccine (#1) 2025 , 05/22/2023, 06/17/2022, Additional history exists Diabetes: Retinopathy [...] LIPID PANEL (03/26/2025 3:35 PM EDT) Result [facility] Kayla Sweeney MD LAB BLOOD ORDERABLES Final Re sult * VITAMIN D, 25-HYDROXY (03/26/2025 3:35 PM EDT) Result [facility] Kayla Sweeney MD LAB BLOOD ORDERABLES Final Re sult * Microalbumin / creatinine urine ratio (03/26/2025 3:35 PM EDT) Only the most recent of2 resultswithin the time period is included. Urine Urine specimen obtained by clean catch procedure / Unknown Result [facility] Kayla Sweeney MD LAB URINE ORDERABLES Final Re sult * C-peptide (03/26/2025 3:35 PM EDT) Blood Venous blood specimen / Unknown Result [facility] Kayla Sweeney MD LAB BLOOD ORDERABLES Final Re sult * Renal function panel (03/26/2025 3:35 PM EDT) Blood Venous blood specimen / Unknown Result [facility] Kayla Sweeney MD LAB BLOOD ORDERABLES Final Re sult * POCT glycosylated hemoglobin (Hb A1C) docked device (09/04/2024 2:02 PM EST) Hemoglobin A1C 12.9 Blood Venous blood specimen / Unknown 09/04/2024 2:02 PM EST Result Fatuma Sweeney MD POINT OF CARE TEST ENTER/EDIT ORDERABLES Final Result from Last 3 Months or Most Recently Relevant to Health Maintenance Insurance MEDICAID [place] [facility] Care Teams Diving Fisher Relationship Specialty Start Date End Date Mounika Boroke MD [address] [place] [address] PCP - General Family Medicine 07/27/23 Mounika Brooke MD [address] [place] [address] PCP - Devoted 11/19/24 Jennifer Orta PA [address] [place] [address] Physician Senior Report Developer Family Medicine 06/24/24 Annette Vega, RN [address] [place] [address] Registered Nurse Family Medicine 04/09/25 Janice Kevin LSW [address] [place] [address] Networking Administrator Family Medicine 04/10/25
--- OUTSIDE RECORDS SUMMARY | 2025-05-05 16:05 | XMS_ITS ---
Author Organization [facility] Address [address] [place] [address] Care Team Providers Care Capacitor Pack Press Operator Name Role Phone Mounika Brooke MD Primary Care Provider [phone] Jennifer Orta Unavailable [phone] Mounika Brooke MD Unavailable [phone] Annette Vega RN Unavailable [phone] Janice Kevin Unavailable Chronic Care Management (CCM) Status:Enrolled (Active) Start date:04/09/2025 Enrollment date:04/09/2025 Overview Please assess for Care Management needs. 04/09/25, 2:41 PM - Annette Vega RN- Patient gives verbal consent to be enrolled in CCM Program and understands there could be a bill for this service. Case Team Name Relationship Phone Annette Vega RN(Responsible Staff) Noemi Peterson [phone] Janice SANTIAGO Internal Sales Engineer [phone] Continued Care and Services Coordination
--- OUTSIDE RECORDS SUMMARY | 2025-05-05 16:05 | XMS_ITS | Encounter Summary ---
Author Organization [facility] Address [address] [place] [address] Care Team Providers Care Commercial Producer Name Role Phone Mounika Brooke MD Primary Care Provider Jennifer Orta Unavailable [phone] Mounika Brooke MD Unavailable [phone] Annette Vega RN Unavailable [phone] Janice Kevin Unavailable Encounter Details Date Type Department Care Team (Late st Contact Info) Description 04/22/2025 Patient Outreach [facility] [address] [place] [address] Annette Vega, RN [address] [place] [address] Social History Tobacco Use Types Packs/Day Years [...] Recorded Patient Health Questionnaire-2 Score 1 12/04/2024 [facility] [place] of Occupat ional Health - Occupational Stress [...] any time in the past 12 m [facility], were you homeless or living in a half-way (including now)? No 04/11/2025 Sex and Gender Information Value Date Recorded Sex Assigned at Not on file Legal Sex Male 7:40 PM EDT Gender Identity Not on file Sexual Orientation Not on file documented as of this encounter Progress Notes * Annette Vega RN - 04/22/2025 12:16 PM EDT Call from RAFAEL [facility]. Reports that pt has received his power wheelchair Denies any other needs. documented in this encounter Plan of Treatment Not on file documented as of this encounter Visit Diagnoses Diagnosis Type 2 diabetes mellitus with hyperglycemia, with long-term current use of insulin (HCC)- Primary Stage 3b chronic kidney disease (CMS-HCC) documented in this encounter Care Teams Commercial Producer Relationship Specialty Start Date End Date Mounika Brooke MD [address] [place] [address] PCP - General Family Medicine 07/27/23 Mounika Brooke MD [address] [place] [address] PCP - Devoted 11/19/24 Jennifer Orta PA [address] [place] [address] Physician Plasma Table Operator Family Medicine 06/24/24 Annette Vega, RN [address] [place] [address] Registered Nurse Family Medicine 04/09/25 Janice Kevin LSW [address] [place] [address] Braided Rug Maker Family Medicine 04/10/25 documented as of this encounter
--- OUTSIDE RECORDS SUMMARY | 2025-05-05 16:05 | XMS_ITS | Encounter Summary ---
Author Organization [facility] Address [address] [place] [address] Care Team Providers Care Semi Automatic Sewing Machine Operator Name Role Phone Mounika Brooke MD Primary Care Provider Jennifer Orta Unavailable [phone] Mounika Brooke MD Unavailable Annette Vega RN Unavailable [phone] Janice Kevin Unavailable Encounter Details Date Type Department Care Team (Late st Contact Info) Description 04/28/2025 Patient Outreach [facility] [address] [place] [address] Janice Kevin LSW [address] [place] [address] Social History Tobacco Use Types Packs/Day Years [...] Recorded Patient Health Questionnaire-2 Score 1 12/04/2024 [facility] [place] of Occupat ional Health - Occupational Stress [...] any time in the past 12 m [facility], were you homeless or living in a [facility] (including now)? No 04/11/2025 Sex and Gender Information Value Date Recorded Sex Assigned at Not on file Legal Sex Male 7:40 PM EDT Gender Identity Not on file Sexual Orientation Not on file documented as of this encounter Progress Notes * JACK Murphy - 04/28/2025 9:43 AM EDT SW contacted pt for monthly monitor and he states he is going through a hard time. He shares that his dtr 4 days ago and having a difficult time processing some of the incidents that occurred prior including pain meds and not getting another rx for her BP in time. Allowed him to share his feelings and discussed his grief. He is scheduled with Dr. Brooke tomorrow and would like to discuss his Duloxetine or possibly something else. Pt is very tearful so provided emotional support. Will notify Dr. Brooke if anything else can be suggested prior to OV tomorrow. He is appreciative. Charline receive motorized wheelchair but has not used it outside the house yet but working fine inside the home so far. Encouraged him to reach out if needing someone to talk to and happy to talk with him about how he is feeling and coping. Grief counseling can be option in near future. * Mounika Brooke MD - 04/28/2025 9:43 AM EDT I have duloxetine on his current med list. He is not taking this? * Mounika Brooke MD - 04/28/2025 9:43 AM EDT Can start taking 2 capsules per day for a total daily dose of 120 mg * JACK Murphy - 04/28/2025 9:43 AM EDT Noted. Contacted pt and someone answered stating pt left his phone at [facility]. * JACK Murphy - 04/28/2025 9:43 AM EDT Received message back from pt. Spoke with pt and advised that Dr. Brooke advised he could increasehis Duloxetine to 2 capsules a day for 120mg and he will try this. Reminded him of appt time for tomorrow. He is appreciative. documented in this encounter Plan of Treatment Not on file documented as of this encounter Visit Diagnoses Diagnosis Type 2 diabetes mellitus with hyperglycemia, with long-term current use of insulin (HCC)- Primary Chronic hypoxemic respiratory failure (HCC) Chronic respiratory failure documented in this encounter Care Teams Semi Automatic Sewing Machine Operator Relationship Specialty Start Date End Date Mounika Brooke MD [address] [place] [address] PCP - General Family Medicine 07/27/23 Mounika Brooke MD [address] [place] [address] PCP - Devoted 11/19/24 Jennifer Orta PA [address] [place] [address] Physician Medical Billing Specialist Family Medicine 06/24/24 Annette Vega, RAFAEL [address] [place] [address] Registered Nurse Family Medicine 04/09/25 Janice Kevin LSW [address] [place] [address] Technician Support Association Family Medicine 04/10/25 documented as of this encounter
--- OUTSIDE RECORDS SUMMARY | 2025-05-05 16:06 | XMS_ITS | Encounter Summary ---
Author Organization [facility] Address [address] [place] [address] Phone Care Team Providers Care Retail Analyst Name Role Phone Mounika Brooke MD Primary Care Provider [phone] Encounter Details Date Type Department Care Team (Late st Contact Info) Description 11/17/2023 Scanned Document [facility] [address] [place] [address] Scanning, Generic Provider Social History Tobacco Use [...] on filedocumented in this encounter Care Teams Retail Analyst Relationship Specialty Start Date End Date Mounika Brooke MD [address] [place] [address] PCP - General Family Medicine 11/02/23 documented as of this encounter
--- OUTSIDE RECORDS SUMMARY | 2025-05-05 16:06 | XMS_ITS | Encounter Summary ---
Author Organization [facility] Address [address] [place] [address] Care Team Providers Care Certified Anesthesiologist Assistant Name Role Phone Mounika Brooke MD Primary Care Provider Mounika Brooke MD Unavailable [phone] Jennifer Short Unavailable Mounika Brooke MD Unavailable Janice Kevin REAL PROPERTY EVALUATOR Unavailable Annette Vega RN Unavailable Janice Kevin REAL PROPERTY EVALUATOR Unavailable Encounter Details Date Type Department Care Team (Late Contact Info) Description 06/21/2024 Clinisync Result Encounter [facility] External Department Unsolicited Jennifer Short PA [address] [place], [place] [id number] Social History Tobacco Use Types Packs/Day Years [...] on filedocumented in this encounter Care Teams Certified Anesthesiologist Assistant Relationship Specialty Start Date End Date Mounika Brooke MD [address] [place] [address] PCP - General Family Medicine 07/27/23 Mounika Brooke MD [address] [place] [address] PCP - [facility] 01/20/24 08/20/24 Mounika Brooke MD [address] [place] [address] PCP - Devoted 11/19/24 Jennifer Short PA [address] [place] [address] Physician Washing Machine Loader Family Medicine 06/24/24 Janice Kevin LSW [address] [place] [address] Car Audio Installer Family Medicine 12/04/24 12/10/24 Annette Vega, RN [address] [place] [address] Registered Nurse Family Medicine 04/09/25 Janice Kevin LSW [address] [place] [address] Car Audio Installer Family Medicine 04/10/25 documented as of this encounter
--- OUTSIDE RECORDS SUMMARY | 2025-05-05 16:06 | XMS_ITS | Encounter Summary ---
Author Organization [facility] Address [address] [place] [address] Phone Care Team Providers Care Visual Display Manager Name Role Phone Mounika Brooke MD Primary Care Provider [phone] Encounter Details Date Type Department Care Team (Late st Contact Info) Description 10/07/2023 Scanned Document [facility] [address] [place] [address] Scanning, Generic Provider Social History Tobacco Use [...] on filedocumented in this encounter Care Teams Visual Display Manager Relationship Specialty Start Date End Date Mounika Brooke MD [address] [place] [address] PCP - General Family Medicine 11/02/23 documented as of this encounter
--- OUTSIDE RECORDS SUMMARY | 2025-05-05 16:06 | XMS_ITS | Encounter Summary ---
Author Organization [facility] Address [address] [place] [address] Care Team Providers Care Business Enterprise Officer Name Role Phone Mounika Brooke MD Primary Care Provider Jennifer Orta Unavailable Mounika Brooke MD Unavailable [phone] Annette Vega RN Unavailable [phone] Janice Kevin BUTCHER SCULLION Unavailable Encounter Details Date Type Department Care Team (Late st Contact Info) Description 03/26/2025 Orders Only [facility] [address] [place] [address] Kayla Sweeney MD [address] [place] [address] Social History Tobacco Use Types Packs/Day Years [...] LIPID PANEL (03/26/2025 3:35 PM EDT) Result [facility] Kayla Sweeney MD LAB BLOOD ORDERABLES Final Re sult * Microalbumin / creatinine urine ratio (03/26/2025 3:35 PM EDT) Urine Urine specimen obtained by clean catch procedure / Unknown Kayla Sweeney MD LAB URINE ORDERABLES Final Re sult * C-peptide (03/26/2025 3:35 PM EDT) Blood Venous blood specimen / Unknown Result [facility] Kayla Sweeney MD LAB BLOOD ORDERABLES Final Re sult * VITAMIN D, 25-HYDROXY (03/26/2025 3:35 PM EDT) Kayla Sweeney MD LAB BLOOD ORDERABLES Final Re sult documented in this encounter Visit Diagnoses Not on filedocumented in this encounter Care Teams Business Enterprise Officer Relationship Specialty Start Date End Date Mounika Brooke MD [address] [place] [address] PCP - General Family Medicine 07/27/23 Mounika Brooke MD [address] [place] [address] PCP - Devoted 11/19/24 Jennifer Orta PA [address] [place] [address] Physician Flow Worker Family Medicine 06/24/24 Annette Vega, RN [address] [place] [address] Registered Nurse Family Medicine 04/09/25 Janice Kevin LSW [address] [place] [address] Home Demonstration Agent Family Medicine 04/10/25 documented as of this encounter
--- OUTSIDE RECORDS SUMMARY | 2025-05-05 16:06 | XMS_ITS | Encounter Summary ---
Author Organization [facility] Address [address] [place] [address] Phone Care Team Providers Care Enrollment Clerk Name Role Phone Mounika Brooke MD Primary Care Provider [phone] Encounter Details Date Type Department Care Team (Late st Contact Info) Description 11/11/2023 Scanned Document [facility] [address] [place] [address] Scanning, Generic Provider Social History Tobacco Use [...] on filedocumented in this encounter Care Teams Enrollment Clerk Relationship Specialty Start Date End Date Mounika Brooke MD [address] [place] [address] PCP - General Family Medicine 11/02/23 documented as of this encounter
--- OUTSIDE RECORDS SUMMARY | 2025-05-05 16:06 | XMS_ITS | Clinical Summary ---
Author Organization [facility] Address [address] [place] [address] Phone Care Team Providers Care Seam Closer Name Role Phone Mounika Brooke MD Primary Care Provider [phone] Allergies Active Allergy Reactions Criticality Noted Date [...] Last Assessment & Plan: BP controlled Continue SECTION CUTTER hydralazine Primary osteoarthritis 06/13/2023 Osteoarthritis of knee [...] 08/07/2018, 11/24/2015 Diabetes: Hemoglobin A1C 01/24/2024 10/24/2023 Echocardiogram 10/07/2024 10/07/2023 COVID-19 Vaccine ( - season) 2025 06/17/2022, 07/27/2021, 12/03/2020, Additional history exists Influenza Vaccine (#1) 2025 , 06/17/2022, 07/20/2021, [...] Recently Relevant to Health Maintenance Insurance MEDICAID [employer] [employer] Care Teams Seam Closer Relationship Specialty Start Date End Date Mounika Brooke MD [address] [place] [address] PCP - General Family Medicine 11/02/23
--- OUTSIDE RECORDS SUMMARY | 2025-05-05 16:06 | XMS_ITS | Clinical Summary ---
Author Organization [facility] Address [address] [place] [address] Care Team Providers Care Roof Bolter Name Role Phone Mounika Brooke MD Primary Care Provider [phone] Debora Levi MD Unavailable [phone] Allergies Active Allergy Reactions Criticality Noted Date [...] (10/26/2023 3:23 PM EST): BP controlled Continue ROVING WINDER hydralazine Restless leg syndrome Assessment & Plan [...] COVID-19 vaccine, age 12+ yr , bivalent (MogoTix-BIONTLiveRamp) 06/17/2022 influenza (IIV4) vaccine, ag e 6 [...] is lower risk 7 11/23/2023 Data from: https://www.neighborhoodatlas.[facility].edu/ . Last address used for calculation [address] 11/23/2023 Sex and Gender Information Value Date [...] METABOLIC PANEL (10/27/2023 5:18 AM EST) Pathologist [facility] [place] Protein, Total 6.3 6.3 - 8.0 g/dL 10/27/2023 6:05 AM EST [facility] Albumin 3.3(L) 3.9 - 4.9 g/dL 10/27/2023 6:05 AM [facility] Calcium, Total 9.1 8.5 - 10.2 mg/dL 10/27/2023 6:05 AM [facility] Bilirubin, Total 0.6 0.2 - 1.3 mg/dL 10/27/2023 6:05 AM EST [facility] Alkaline Phosphatase 88 38 - 113 U/L 10/27/2023 6:05 AM [facility] AST 11(L) 14 - 40 U/L 10/27/2023 6:05 AM [facility] ALT 11 10 - 54 U/L 10/27/2023 6:05 AM [facility] Glucose 145(H) 74 - 99 mg/dL 10/27/2023 6:05 AM [facility] Comment: The [place] Diabetes Association (ADA) provides guidance for cutoff [...] Standards of Medical Care in Diabetes 2016, [place] [employer] Association. Diabetes Care. 2016.39(Suppl 1). BUN 40(H) 9 - 24 mg/dL 10/27/2023 6:05 AM [facility] Creatinine 1.62(H) 0.73 - 1.22 mg/dL 10/27/2023 6:05 AM [facility] Sodium 144 136 - 144 mmol/L 10/27/2023 6:05 AM [facility] Potassium 4.1 3.7 - 5.1 mmol/L 10/27/2023 6:05 AM [facility] Chloride 100 97 - 105 mmol/L 10/27/2023 6:05 AM [facility] CO2 35(H) 22 - 30 mmol/L 10/27/2023 6:05 AM [facility] Anion Gap 9 9 - 18 mmol/L 10/27/2023 6:05 AM [facility] Estimated Glomerular Filtration Rate 47(L) >=60 mL/min/1. 73m 10/27/2023 6:05 AM [facility] Comment:Estimated Glomerular Filtration Rate (eGFR) is [...] MD LABORATORY Final Result Performing Organization Address City/State/[facility] Co de Phone Number [facility] [address] [place] [address], * LIPID PANEL BASIC (10/25/2023 6:27 AM EST) Pathologist [facility] [place] Cholesterol, Total 104 <200 mg/dL 10/25/2023 9:13 AM [facility] Comment: <200 mg/dL, Desirable 200-239 mg/dL, Borderline high >239 mg/dL, High Triglyceride 52 <150 mg/dL 10/25/2023 9:13 AM [facility] Comment: <150 mg/dL, Normal 150-199 mg/dL, Borderline high 200-499 mg/dL, High >499 mg/dL, Very high HDL Cholesterol 61 >39 mg/dL 9:13 AM [facility] Comment: 40-59 mg/dL, Acceptable >59 mg/dL, High: Negative risk factor for coronary heart disease <40 mg/dL, Low: Positive risk factor for coronary heart disease Non HDL Cholesterol 43 <130 mg/dL 10/25/2023 9:13 AM [facility] Comment: <130 mg/dL, Optimal 130-159 mg/dL, Near optimal/above optimal 160-189 mg/dL, Borderline high 190-219 mg/dL, High >219 mg/dL, Very high Secondary prevention optimal non HDL Cholesterol levels are recommended to be <100 mg/dL Fasting Time 12 hrs 10/25/2023 9:13 AM [facility] VLDL Cholesterol 10 <30 mg/dL 10/25/19 24 9:13 AM [facility] TC:HDL Ratio 1.70 <5.10 10/25/2023 9:13 AM [facility] LDL Cholesterol, Calculated 33 <100 mg/dL 10/25/2023 9:13 AM [facility] Comment: <100 mg/dL, Optimal 100-129 mg/dL, Near optimal/above optimal 130-159 mg/dL, Borderline high 160-189 mg/dL, High >189 mg/dL, Very high Secondary prevention optimal LDL Cholesterol levels are recommended to be < 70 mg/dL LDL:HDL Ratio 0.54 <2.54 10/25/2023 9:13 AM [facility] Comment: Reference: 1. National Cholesterol Education Program ATP III Guideline At-A-Glance Quick Desk Reference: National Heart, Lung, and Blood [place]. National Institutes of Health. 2001: NIH Publication No. 01-3305. 2. An International Atherosclerosis Society position paper: global recommendations for the management of dyslipidemia: executive summary, Atherosclerosis. 2014: 232(2):410-413. Blood BLOOD SPECIMEN / Unknown Venipuncture / Unknown 10/25/2023 6:27 AM EST 10/25/2023 6:40 AM EST us Ashley Knowles APRN.[facility] Final Re sult [facility] [address] [place] [address], from Last 3 Months or Most Recently Relevant to Health Maintenance Insurance * Guarantor: Oliverio Woodward Account Type Relation to Patient Date of Phone Billing Address Personal/Family Self 1960 [address] [place] [address] MEDICARE Care Teams Roof Bolter Relationship Specialty Start Date End Date Mounika Brooke MD [address] [place] [address] PCP - General Family Medicine 10/23/23 [place] [address] [address] [place] [address] Physician Nephrology 10/31/23
--- OUTSIDE RECORDS SUMMARY | 2025-05-05 16:06 | XMS_ITS | Continuity of Care Document ---
Author Organization [facility] Address [address] [place] [id number] Phone [phone] Care Team Providers Care Chamber Worker Name Role Phone Nito Brooke DO Care Team Information Residential Sales Associate [phone] Assessments Date Code Description Provider 09/14/2023 N17.9 [...] Chronic kidney disease, stag e 3a Flakitajojo Lugo.D. 06/14/2023 N17.9 Acute kidney failure, unspec ified [...]
--- OUTSIDE RECORDS SUMMARY | 2025-05-05 16:06 | XMS_ITS | Encounter Summary ---
Author Organization [facility] Address [address] [place] [address] Care Team Providers Care Monogram Technician Name Role Phone Migue Stroud MD Primary Care Provider [phone] Mounika Brooke MD Primary Care Provider [phone] Deann Calles LPN Unavailable Mounika Brooke MD Unavailable [phone] Jennifer Orta Unavailable Mounika Brooke MD Unavailable [phone] Janice Kevin Unavailable Annette Vega RN Unavailable [phone] Janice Kevin Unavailable Encounter Details Date Type Department Care Team (Latest Contact Info) Description 05/17/2023 Abstract [facility] Sukh Harrington, DPM FAC[facility]AS [address] [place] [id number] Social History Tobacco Use Types Packs/Day Years [...] on filedocumented in this encounter Care Teams Monogram Technician Relationship Specialty Start Date End Date Migue Stroud MD [address] [facility] [place] [address] PCP - General Family Medicine 04/03/23 07/26/23 Mounika Brooke MD [address] [place] [address] PCP - General Family Medicine 07/27/23 Mounika Brooke MD [address] [place] [address] PCP - [facility] 01/20/24 08/20/24 Mounika Brooke MD [address] [place] [address] PCP - [facility] 11/19/24 Deann Calles LPN [address] [place] [address] Licensed Practical Nurse Family Medicine 09/26/2302/27 Jennifer Orta PA [address] [place] [address] Physician Passenger Representative Family Medicine 06/24/24 Janice Kevin LSW [address] [place] [address] Tribal Delegate Family Medicine 12/04/24 12/10/24 Annette Vega, RN [address] [place] [address] Registered Nurse Family Medicine 04/09/25 Janice Kevin LSW [address] [place] [address] Tribal Delegate Family Medicine 04/10/25 documented as of this encounter
--- OUTSIDE RECORDS SUMMARY | 2025-05-05 16:06 | XMS_ITS | Encounter Summary ---
Author Organization [facility] Address [address] [place] [address] Care Team Providers Care Pinking Machine Operator Name Role Phone Migue Stroud MD Primary Care Provider Mounika Brooke MD Primary Care Provider [phone] Deann Calles LPN Unavailable Mounika Brooke MD Unavailable [phone] Jennifer Orta Unavailable [phone] Mounika Brooke MD Unavailable [phone] Janice Kevin SOCK TURNER Unavailable Annette Vega RN Unavailable Janice Kevin SOCK TURNER Unavailable Encounter Details Date Type Department Care Team (Late st Contact Info) Description 05/17/2023 Abstract [facility] [address] [facility] [address] [place] [id number] Sukh Harrington, DPM FACFAS [address] [facility] [place] [address] Social History Tobacco Use Types Packs/Day Years [...] on filedocumented in this encounter Care Teams Pinking Machine Operator Relationship Specialty Start Date End Date Migue Stroud MD [address] [place] [address] PCP - General Family Medicine 04/03/23 07/26/23 Mounika Brooke MD [address] [place] [address] PCP - General Family Medicine 07/27/23 Mounika Brooke MD [address] [place] [address] PCP - [facility] 01/20/24 08/20/24 Mounika Brooke MD [address] [place] [address] PCP - [facility] 11/19/24 Deann Calles LPN [address] [place] [address] Licensed Practical Nurse Family Medicine 09/26/2302/27 Jennifer Orta PA [address] [place] [address] Physician Administrative Office Specialist Family Medicine 06/24/24 Janice Kevin LSW [address] [place] [address] Refining Engineer Family Medicine 12/04/24 12/10/24 Annette Vega, RN [address] [place] [address] Registered Nurse Family Medicine 04/09/25 Janice Kevin LSW [address] [place] [address] Refining Engineer Family Medicine 04/10/25 documented as of this encounter
--- OUTSIDE RECORDS SUMMARY | 2025-05-05 16:06 | XMS_ITS | Encounter Summary ---
Author Organization [facility] Address [address] [place] [address] Phone Care Team Providers Care Train Station Server Name Role Phone Mounika Brooke MD Primary Care Provider [phone] Encounter Details Date Type Department Care Team (Late st Contact Info) Description 10/06/2023 Scanned Document [facility] [address] [place] [id number] Scanning, Generic Provider Social History Tobacco Use [...] on filedocumented in this encounter Care Teams Train Station Server Relationship Specialty Start Date End Date Mounika Brooke MD [address] [place] [address] PCP - General Family Medicine 11/02/23 documented as of this encounter
--- OUTSIDE RECORDS SUMMARY | 2025-05-05 19:00 | XMS_ITS | CCD ---
Author Organization [facility] Inform ion Partnership [facility] Care Team Providers Care Husbandry Person Name Role Phone Migue STROUD Primary Care Physician [phone] Mounika Brooke Primary Care Physician [phone] Bowen Fan Unavailable Unavailable DO Reid rBooke. Primary Care Provider DO Art Kirby Emergency Provider DO Alban Chavez Admit Provider [phone] DO Alban Arrington Attending Provider MD [...] Unavailable Mounika Brooke MD Primary Care Provider [phone] Gurmeet LYMAN, Naun Unavailable [phone] MD Mouniak Brooke Primary Care Provider DO Jason Mercado M Emergency Provider DO Tera Nevarez Admit Provider [phone] MD Hood Zacarias Other Provider MD Yesi Murphy Attending Provider [phone] SOFIE Alexander Other Provider Unavailable MD Bladimir Story Other Provider MD Immanuel Pozo Other Provider [phone] MD Satnam Guevara Other Provider MD Gigi Cooper Other Provider MD Manish Fu Attending Provider [phone] Mounika Brooke MD Primary Care Provider Mendy LYMAN, Mounika Lugo Unavailable Marivel ROWAN, Jennifer Nunez Unavailable [phone] Smooth Harrington Attending Unavailable Dolce, Smooth Elizondo Attending Unavailable Hajdari, Astrit H Attending Unavailable COOK, Taz P Referring Unavailable COOK, Taz P Admitting Unavailable COOK, Taz P Attending Unavailable COOK, Taz P Attending Unavailable COOK, Taz P Referring Unavailable COOK, Taz P Admitting Unavailable COOK, Taz P Admitting Unavailable COOK, Taz P Attending Unavailable [facility] Cardio, XXXX Consulting Unavailable Moussawi, Ahmad Admitting [...] Bahena Attending Unavailable Taz THOMAS Attending Unavailable Gisselle Bahena Attending Unavailable Gisselle Bahena Attending Unavailable Smooth Harrington Attending Unavailable Sukh Harrington Attending Unavailable Sukh Harrington Attending Unavailable Nicole Myers Attending Unavailable Alejandro Silva Attending Unavailable Nicole Myers Attending Unavailable Jennifer SHORT Admitting Unavailable Jennifer SHORT Attending Unavailable Taz THOMAS Admitting Unavailable Taz THOMAS Attending Unavailable Mounika Brooke MD Primary Care Provider Mounika Brooke MD Unavailable [phone] Dorita [facility], Janice Unavailable Kevin [facility], Janice Unavailable Nicole Myers Attending Unavailable Corky Luo Attending Unavailable Toni Gutierrez. Attending Unavailable Toni Gutierrez Admitting Unavailable Nicole Myers Attending Unavailable Corky Luo Attending Unavailable Dwight Shaffer Attending Unavailable Dwight Shaffer Admitting Unavailable Mendy, Mounika Primary Care Unavailable MariaL uisa Steiner. Attending Unavailable Mendy, Mounika M Referring Unavailable Toni Gutierrez Attending Unavailable Toni Gutierrez Admitting Unavailable Jigna Suarez Attending Unavailable Jigna Suarez Admitting Unavailable Jordan MACARIO Attending Unavailable Jigna Suarez Admitting Unavailable Jacqueline Vega RN Unavailable [phone] [facility], Janice Unavailable MENDY MOUNIKA M Attending Unavailable MONE MCGUIRE Attending Unavailable MENDYMOUNIKA Referring Unavailable MENDY, MOUNIKA M Attending Unavailable MENDY, MOUNIKA M Attending Unavailable MENDY, MOUNIKA M Attending Unavailable MENDY, MOUNIKA M Attending Unavailable PERLITA MEEKS Attending Unavailable JENNIFER SHORT Attending Unavailable JENNIFER SHORT Referring Unavailable MENDY, MOUNIKA M Attending Unavailable MENDY, MOUNIKA M Attending Unavailable KAYLA SWEENEY Attending Unavailable KAYLA SWEENEY Referring Unavailable PERLITA MEEKS Attending Unavailable KAYLA SWEENEY Attending Unavailable Allergies Allergy Classification Reported Allergen(s) Allergy Type Date of Onset Reaction(s) Facility Penicillins (antibiotic) (4 sources) Penicillins; Translations: [penicillins] Drug Allergy Cutaneous eruption (morphologic abnormality) [facility] (20 sources) Penicillins; Translations: [penicillins] Drug allergy 5 Cutaneous eruption (morphologic abnormality), Rash [facility] (20 sources) penicillAMINE Drug Allergy 3 Unknown [facility] Medications Current Medications Medication Drug Class(es) Dates Sig (Normalized) Sig (Original) ##### (1 source) Start: 12-28-2021 ##### 100 EA, USE TO TEST THREE TIMES DAILY Start Date: 12/28/21 Status: Ordered acetaminophen 325 mg / HYDROcodone bitartrate 5 mg oral tablet (16 sources) Opioid Agonist Start: 11-20-2023 take 1 tablet by mouth every hour [place] 325 mg-5 mg oral tablet See Instructions, 1 tab(s), Refill(s) 0, Take 1 hour prior to your procedure, [facility] #[id number], 183, cm, 11/20/23 12:53:00 EDT, Height/Length Dosing, [...] for pain - following procedure, [facility] #[id number], 183, cm, 11/20/23 12:53:00 EDT, Height/Length Dosing, 143.5, kg, 11/11/23 9:09:00 EDT, Weight Dosing Start Date: 11/20/23 Status: Ordered acetaZOLAMIDE 250 mg oral tablet (1 source) Carbonic Anhydrase Inhibitor Start: 11-17-2023 take 250 mg by mouth twice daily Acetazolamide Active 250 MG PO Twice daily November 17, 2023 12:00am [id number] 200 actuat albuterol 0.09 mg/actuat metered dose [...] wheezing, 30 EA, Refill(s) 5, [facility] #[id number], 182.9, cm, 03/29/22 13:07:00 EDT, Height/Length Dosing, [...] Wheezing, 18 gm, Refill(s) 11, [facility] #[id number], 182, cm, 05/08/23 10:15:00 EDT, Height/Length Dosing, 137, kg, 05/08/23 10:15:00 EDT, Weight Dosing Start Date: 05/08/23 Status: Ordered Quantity: 18.0 Unit: g Repeat number: 12 Start: 05-08-2023 take 2 puff(s) by in halation every six hours Albuterol (Eqv-ProAir HFA) 90 mcg/inh inhalation aerosol 2 puff(s), Inhalation, q6hr Wheezing, 18 gm, Refill(s) 11, [facility] #[id number], 182, cm, 05/08/23 10:15:00 EDT, Height/Length Dosing, 137, kg, 05/08/23 10:15:00 EDT, Weight Dosing Start Date: 05/08/23 Status: Ordered Start: 05-08-2023 End: 05-02-2024 take 2 puff(s) by inhalation every six hours Albuterol (Eqv-ProAir HFA) 90 mcg/inh inhalation aerosol 2 puff(s), Inhalation, q6hr Wheezing for 30 day(s), 18 gm, Refill(s) 11, [facility] #[id number], 182, cm, 05/08/23 10:15:00 EDT, Height/Length Dosing, [...] qAM, # 30 tab(s), Refills(s) 0, Pharmacy: [facility] #[id number], 180, cm, 09/12/23 13:35:00 EST, Height/Length Dosing, 149.8, kg, 09/12/23 13:35:00 EST, Weight Dosing Start Date: 09/16/23 Status: Ordered Quantity: 30.0 Unit: tab(s) Repeat number: 1 Beet Root (20 sources) Start: 09-19-2022 Beet Root Beet Root, See Instructions, Take 1000mg daily Start Date: 09/19/22 Status: Ordered Blood Glucose Monitoring Suppl (OneTouch Verio Flex System) w/Device kit (4 sources) Start: 12-24-2024 Blood Glucose Monitoring Suppl [...] day(s), # 20 cap(s), Refills(s) 0, Pharmacy: [facility] #[id number], 183, cm, 12/02/24 12:47:00 EDT, Height/Length Dosing, [...] Date: 09/19/22 Status: Ordered Continuous Blood Gluc Special Shopper (FreeStyle Sage 3 [place]) device (20 sources) Start: 09-25-19 Continuous Blood Gluc Special Shopper (FreeStyle Sage 3 [place]) device Indications: Type 2 diabetes mellitus with hyperglycemia, with long-term current use of insulin ([facility]) , Long-term insulin use ([facility]) 1 each continuously 1 each 09/25/2023 Active Start: 09-25-2023 Continuous Blo od Gluc Special Shopper (FreeStyle Sage 3 [place]) device Indications: Type 2 diabetes mellitus with hyperglycemia, with long-term current use of insulin ([facility]) , Long-term insulin use (CMS/HCC) 1 each continuously 1 each 09/25/2023 Active Continuous Blood Gluc Sensor (FreeStyle Sage 3 Sensor) [facility] (20 sources) Start: 09-25-2023 Continuous Blo od Gluc Sensor (FreeStyle Sage 3 Sensor) [facility] Indications: Type 2 diabetes mellitus with hyperglycemia, with long-term current use of insulin (HCC) , Long-term insulin use (HCC) 1 each every 14 (fourteen) days 6 each 3 09/25/2023 Active Start: 09-25-2023 Continuous Blo od Gluc Sensor (FreeStyle Sage 3 Sensor) [facility] Indications: Type 2 diabetes mellitus with hyperglycemia, with long-term current use of insulin (CMS/HCC) , Long-term insulin use (CMS/HCC) 1 each every 14 (fourteen) days 6 each 3 09/25/2023 Active cyclobenzaprine hydrochloride 10 mg oral tablet (2 sources) Muscle Relaxant Start: 04-29-2025 take 1 tablet by mouth at bedtime cyclobenzaprine (Flexeril) 10 MG tablet Indications: Neck pain Take 1 tablet (10 mg) by mouth at bedtime 30 tablet 04/29/2025 Active diazePAM 10 mg oral tablet (16 sources) Benzodiazepine Start: 11-20-2023 Valium 10 mg Tab See Instructions, Take 1 hr prior to procedure, # 1 tab(s), Refills(s) 0, [id number], 183, cm, 11/20/23 12:53:00 EDT, Height/Length Dosing, [...] days, # 14 tab(s), Refills(s) 0, [facility]: [facility][id number], 183, cm, 11/20/23 12:53:00 EDT, Height/Length Dosing, [...] sources) Serotonin and Norepinephrine Reuptake Inhibitor Start: 04-29-2025 End: 04-29-2026 take 2 capsules by mouth once daily DULoxetine (Cymbalta) [address] capsule Indications: Anxiousness Take 2 capsules (120 mg) by mouth Daily 180 capsule 3 04/29/2025 04/29/2026 Active Start: 01-11-2022 End: 01-22-2026 take 1 capsule by mouth once daily DULoxetine (Cymbalta) [address] capsule Indications: Anxiousness Take 1 capsule (60 mg) by mouth Daily 90 capsule 3 01/22/2025 04/29/2025 Discontinued (Reorder) DULoxetine 60 mg Cap-EC (3 sources) Start: 01-11-2022 take 1 capsule by mouth once daily DULoxetine 60 mg Cap-EC 60 mg = 1 cap(s), Oral, Daily, # 30 cap(s), Refills(s) 11, Pharmacy: [facility], 182, cm, 01/11/22 13:57:00 EDT, Height/Length Dosing, 130, kg, 01/11/22 13:57:00 EDT, Weight Dosing Start Date: 01/11/22 Status: Ordered Start: 12-03-[address] [facility] once daily DULoxetine 60 mg Cap-EC 60 mg = 1 cap(s), Oral, Daily, # 30 cap(s), Refills(s) 11, Pharmacy: [facility], 183, cm, 11/14/19 12:11:00 EDT, [...] above: Take 1 tablet by ricco th once daily. Flax Seed Oil (20 sources) Start: 09-19-2022 Flax Seed Oil See Instructions, Refill(s) 0, Take 1000mg daily Start Date: 09/19/22 Status: Ordered fluconazole 200 mg oral tablet (1 source) Azole Antifungal Start: 11-17-2023 take 200 mg by mouth once daily Fluconazole Active 200 MG PO Daily 05 30November 17, 2023 12:00am Freestyle Sage 2 [place] (20 sources) Start: 09-16-2023 Freestyle Sage 2 [place] Freestyle Sage 2 [place], See Instructions, 1 EA, 0, Use daily with sensor, [facility] #[id number], Supply, 180, cm, 09/12/23 13:35:00 EST, Height/Length Dosing, 149.8, kg, 09/12/23 13:35:00 EST, Weight Dosing Start Date: 09/16/23 Status: Ordered Quantity: 1.0 Unit: EA Repeat number: 1 Start: 09-16-2023 Freestyle Libr e 2 [place] Freestyle Sage 2 [place], See Instructions, 1 EA, 0, Use daily with sensor, [facility] #[id number], Supply, 180, cm, 09/12/23 13:35:00 EST, Height/Length Dosing, 149.8, kg, 09/12/23 13:35:00 EST, Weight Dosing Start Date: 09/16/23 Status: Ordered Start: 05-22-2023 Freestyle Libr e 2 [place] Freestyle Sage 2 [place], See Instructions, 1 EA, 0, Use daily with sensor, [facility] #[id number], Supply, 182, cm, 05/22/23 13:30:00 EDT, Height/Length Dosing, 139.6, kg, 05/22/23 13:30:00 EDT, Weight Dosing Start Date: 05/22/23 Status: Ordered Freestyle Sage 2 Sensors (20 sources) Start: 09-16-2023 Freestyle Libr e 2 Sensors Freestyle Sage 2 Sensors, See Instructions, 2 EA, 3, Apply one q 14 days, [facility] #[id number], Supply, 180, cm, 09/12/23 13:35:00 EST, Height/Length Dosing, 149.8, kg, 09/12/23 13:35:00 EST, Weight Dosing Start Date: 09/16/23 Status: Ordered Quantity: 2.0 Unit: EA Repeat number: 4 Start: 09-16-2023 Freestyle Libr e 2 Sensors Freestyle Sage 2 Sensors, See Instructions, 2 EA, 3, Apply one q 14 days, [facility] #[id number], Supply, 180, cm, 09/12/23 13:35:00 EST, Height/Length Dosing, 149.8, kg, 09/12/23 13:35:00 EST, Weight Dosing Start Date: 09/16/23 Status: Ordered Start: 05-22-2023 Freestyle Libr e 2 Sensors Freestyle Sage 2 Sensors, See Instructions, 2 EA, 3, Apply one q 14 days, [facility] #[id number], Supply, 182, cm, 05/22/23 13:30:00 EDT, Height/Length Dosing, 139.6, kg, 05/22/23 13:30:00 EDT, Weight Dosing Start Date: 05/22/23 Status: Ordered furosemide 20 mg oral tablet (20 sources) Loop Diuretic Start: 09-16-2023 take 1 tablet by mouth once daily Lasix 40 mg Tab 40 mg = 1 tab(s), Oral, Daily, # 30 tab(s), Refills(s) 0, Pharmacy: [facility] #[id number], 180, cm, 09/12/23 13:35:00 EST, Height/Length Dosing, [...] qPM, # 30 tab(s), Refills(s) 0, Pharmacy: [facility] #[id number], 180, cm, 09/12/23 13:35:00 EST, Height/Length Dosing, [...] Start: 10-01-2021 take 1 tablet by ricco th twice daily gabapentin 600 mg Tab 600 mg = 1 tab(s), Oral, BID, 30 Day Supply, # 60 tab(s), Refills(s) 11, Pharmacy: [facility] #[id number], 182, cm, 10/01/21 10:14:00 EST, Height/Length Dosing, [...] Start: 06-15-2023 take 2 tablets by mo ut twice daily guaiFENesin 600 mg ER Tab 1,200 mg = 2 tab(s), Oral, BID, # 14 tab(s), Refills(s) 0, Pharmacy: [facility] #[id number], 182, cm, 06/11/23 13:54:00 EDT, Height/Length Dosing, [...] day, # 45 mL, Refills(s) 5, Pharmacy: [facility] #[id number], 182, cm, 09/13/22 13:17:00 EST, Height/Length Dosing, 140.8, kg, 09/13/22 13:17:00 EST, Weight Dosing Start Date: 09/13/22 Status: Ordered Quantity: 45.0 Unit: mL Repeat number: 6 Start: 03-29-2022 NovoLOG FlexPe n 100 units/mL injectable solution See Instructions, 250 tidac. Max 150 units a day, # 45 mL, Refills(s) 5, Pharmacy: [facility] #[id number], 182.9, cm, 03/29/22 13:07:00 EDT, Height/Length Dosing, 126.7, kg, 03/29/22 13:07:00 EDT... Start Date: 03/29/22 Status: Ordered Start: 10-01-2021 NovoLOG FlexPe n 100 units/mL injectable solution See Instructions, 250 tidac. Max 120 units a day, # 15 mL, Refills(s) 3, Pharmacy: [facility], 182, cm, 10/01/21 10:14:00 [...] solution (1 source) Insulin Analog Start: 12-29-19 22 inject 18 mL by subcutaneous injection once daily in the evening Levemir FlexTouch 100 units/mL subcutaneous solution 18 mL, inject 40 units subcutaneously every morning and 30 units every evening, Refills(s) 0 Start Date: 12/28/21 Status: Ordered 3 ml insulin glargine 100 unt/ml pen injector (20 sources) Insulin Analog Start: 03-07-20 inject 30 [IU] by subcutaneous injection in [...] BID, # 12 mL, Refills(s) 5, [facility]: [facility] #[id number], 182, cm, 09/13/22 13:17:00 EST, Height/Length Dosing, 140.8, kg, 09/13/22 13:17:00 EST, Weight Dosing Start Date: 09/13/22 Status: Ordered Quantity: 12.0 Unit: mL Repeat number: 6 Start: 03-29-2022 Toujeo Max Harriet oStar 300 units/mL subcutaneous solution 40 unit(s), SubCutaneous, BID, # 12 mL, Refills(s) 5, Pharmacy: [facility] #[id number], 182.9, cm, 03/29/22 13:07:00 EDT, Height/Length Dosing, 126.7, kg, 03/29/22 13:07:00 EDT, Weight Dosing Start Date: 03/29/22 Status: Ordered Start: 01-11-2022 inject 40 [IU] by shah bcutaneous injection in the morning, then inject 30 [IU] by subcutaneous injection in the evening Lantus Solostar Pen 100 units/mL subcutaneous solution See Instructions, 40 units AM, 30 units PM, # 30 mL, Refills(s) 11, [facility], 182, cm, 01/11/22 13:57:00 EDT, Height/Length Dosing, 130, kg, 01/11/22 13:57:00 EDT, Weight Dosing Start Date: 01/11/22 Status: Ordered Start: 01-11-2022 inject 40 [IU] by shah bcutaneous injection in the morning, then inject 30 [IU] by subcutaneous injection in the evening Lantus Solostar Pen 100 units/mL subcutaneous solution See Instructions, 40 units AM, 30 units PM, # 30 mL, Refills(s) 11, [facility], 182, cm, 01/11/22 13:57:00 EDT, Height/Length Dosing, [...] bedtime., # 6 mL, Refills(s) 1, Pharmacy: [facility] #[id number], 182, cm, 12/20/24 13:40:00 EDT, Height/Length Dosing, [...] meals. isopropyl alcohol 0.7 ml/ml medicated pad (4 sources) Start: 12-22-19 Alcohol Swabs (Alcohol Prep) [...] BID, 180 tab(s), Refill(s) 4, [facility] #[id number], 182.9, cm, 12/02/22 10:56:00 EDT, Height/Length Dosing, 139.6, kg, 12/02/22 10:56:00 EDT, Weight Dosing Start Date: 04/14/23 Status: Ordered Quantity: 180.0 Unit: tab(s) Repeat number: 5 Start: 04-04-2022 Jentadueto 2.5 mg-1000 mg oral tablet 1 tab(s), Oral, BID, 180 tab(s), Refill(s) 4, [facility] #[id number], 182.9, cm, 03/29/22 13:07:00 EDT, Height/Length Dosing, 126.7, kg, 03/29/22 13:07:00 EDT, Weight Dosing Start Date: 04/04/22 Status: Ordered Start: 11-18-2021 take 1 tablet by ricco th twice daily Jentadueto 2.5 mg-1000 mg oral tablet 1 tab(s), Oral, BID, 180 tab(s), Refill(s) 4, [facility], 182, cm, 10/01/21 10:14:00 EST, Height/Length Dosing, [...] Daily, # 30 tab(s), Refills(s) 1, Pharmacy: [facility] #[id number], 182, cm, 12/20/24 13:40:00 EDT, Height/Length Dosing, [...] 90 tab(s), Refills(s) 3, [facility]: [facility] #[id number], 182.9, cm, 03/29/22 13:07:00 EDT, Height/Length Dosing, 126.7, kg, 03/29/22 13:07:00 EDT, Weight Dosing Start Date: 03/29/22 Status: Ordered Start: 04-20-2021 take 1 tablet by ricco th once daily losartan 100 mg Tab 100 mg = 1 tab(s), Oral, Daily, # 90 tab(s), Refills(s) 3, [facility]: [facility], 183, cm, 04/20/21 11:36:00 EDT, Height/Length Dosing, 136, kg, 04/20/21 11:41:00 EDT, Weight Dosing Start Date: 04/20/21 Status: Ordered methocarbamol 750 mg oral tablet (1 source) Muscle Relaxant Start: 12-19-2024 End: 12-22-2024 take 1 tablet by mouth three times daily Robaxin-750 oral tablet 750 mg = 1 tab(s), Oral, TID, X 3 day(s), # 9 tab(s), Refills(s) 0, Pharmacy: [facility] #[id number], 183, cm, 12/19/24 10:26:00 EDT, Height/Length Dosing, [...] day, # 15 mL, Refills(s) 3, Pharmacy: [facility], 182, cm, 10/01/21 10:14:00 EST, Height/Length Dosing, 131.2, kg, 10/01/21 10:... Start Date: 10/01/21 Status: Ordered oxybutynin chloride 5 mg oral tablet (16 sources) Cholinergic Muscarinic Antagonist Start: 02-07-2024 take 1 tablet by mouth twice daily oxybutynin 5 mg Tab See Instructions, 1 tab(s) Oral bid after procedure, # 20 tab(s), Refills(s) 0, Pharmacy: [facility] #[id number], 180, cm, 01/15/24 16:27:00 EDT, Height/Length Dosing, 140, kg, 01/15/24 16:27:00 EDT, Weight Dosing Start Date: 02/07/24 Status: Ordered Start: 11-20-2023 take 1 tablet by ricco th twice daily oxybutynin 5 mg Tab See Instructions, 1 tab(s) Oral bid after procedure, # 10 tab(s), Refills(s) 0, Pharmacy: [facility] #[id number], 183, cm, 11/20/23 12:53:00 EDT, Height/Length Dosing, 143.5, kg, 11/11/23 9:09:00 EDT, Weight Dosing Start Date: 11/20/23 Status: Ordered pantoprazole 40 mg delayed release oral tablet (20 sources) Proton Pump Inhibitor Start: 04-20-2021 End: 12-04-2023 take 1 tablet by mouth once daily Protonix 40 mg Tab-DR 40 mg = 1 tab(s), Oral, Daily, # 30 tab(s), Refills(s) 6, [facility]acy: [facility] #[id number], 182, cm, 05/08/23 10:15:00 EDT, Height/Length Dosing, 137, kg, 05/08/23 10:15:00 EDT, Weight Dosing Start Date: 05/08/23 Status: Ordered Quantity: 30.0 Unit: tab(s) Repeat number: 7 Indication: Gastro-esophageal reflux disease without esophagitis Start: 04-20-2021 take 1 tablet by ricco th once daily Pantoprazole [address] Tab 40 mg = 1 tab(s), Oral, Daily, # 90 tab(s), Refills(s) 3, [facility]acy: [facility] [address], 183, cm, 04/20/21 11:36:00 EDT, Height/Length [...] qPM, # 90 tab(s), Refills(s) 4, Pharmacy: [facility] #[id number], 182, cm, 05/22/23 13:30:00 EDT, Height/Length Dosing, 139.6, kg, 05/22/23 13:30:00 EDT, Weight Dosing Start Date: 05/22/23 Status: Ordered Quantity: 90.0 Unit: tab(s) Repeat number: 5 Start: 03-29-2022 take 1 tablet by ricco th once daily in the evening ropinirole 1 mg Tab 1 mg = 1 tab(s), Oral, qPM, # 90 tab(s), Refills(s) 4, Pharmacy: [facility] #[id number], 182.9, cm, 03/29/22 13:07:00 EDT, Height/Length Dosing, 126.7, kg, 03/29/22 13:07:00 EDT, Weight Dosing Start Date: 03/29/22 Status: Ordered Start: 04-20-2021 take 1 tablet by ricco once daily in the evening ropinirole 1 mg Tab 1 mg = 1 tab(s), Oral, qPM, # 90 tab(s), Refills(s) 3, [facility]: [facility], 183, cm, 04/20/21 11:36:00 EDT, [...] # 30 cap(s), Refills(s) 3, [facility]: [facility] #[id number], 181.8, cm, 09/26/23 9:01:00 EST, Height/Length Dosing, 136, kg, 09/26/23 9:01:00 EST, Weight Dosing Start Date: 10/02/23 Stop Date: 01/30/24 Status: Ordered Comment on above: Take [address] [facility] every afternoon. torsemide 20 mg oral [...] wheezing, 8.5 gm, Refill(s) 5, [facility] #[id number], 182.9, cm, 06/17/22 13:13:00 EDT, Height/Length Dosing, 131.5, kg, 06/17/22 13:13:00 EDT, Weight Dosing Start Date: 06/17/22 Status: Ordered Quantity: 8.5 Unit: g Repeat number: 6 Start: 06-17-2022 take 2 puff(s) by in halation every four hours Ventolin HFA 90 mcg/inh Aerosol 2 puff(s), Inhalation, q4hr Shortness of breath or wheezing, 8.5 gm, Refill(s) 5, [facility] #[id number], 182.9, cm, 06/17/22 13:13:00 EDT, Height/Length Dosing, [...] day(s), # 20 cap(s), Refills(s) 0, [facility]: [facility] #[id number], 180, cm, 09/24/23 20:13:00 EST, Height/Length Dosing, 141.4, kg, 09/24/23 20:13:00 EST, Weight Dosing Start Date: 09/24/23 Stop Date: 09/29/23 Status: Ordered Glucometer (20 sources) Start: 09-16-2023 Glucometer Glu cometer, See Instructions, 1 EA, 0, Dispense 1 Glucometer, [facility] #[id number], Supply, 180, cm, 09/12/23 13:35:00 EST, Height/Length Dosing, 149.8, kg, 09/12/23 13:35:00 EST, Weight Dosing Start Date: 09/16/23 Status: Ordered Quantity: 1.0 Unit: EA Repeat number: 1 Indication: Type 2 diabetes mellitus with diabetic neuropathy, unspecified Start: 09-16-2023 Glucometer Glu cometer, See Instructions, 1 EA, 0, Dispense 1 Glucometer, [facility] #[id number], Supply, 180, cm, 09/12/23 13:35:00 EST, Height/Length Dosing, 149.8, kg, 09/12/23 13:35:00 EST, Weight Dosing Start Date: 09/16/23 Status: Ordered Start: 11-03-2022 Glucometer Glu cometer, See Instructions, 1 EA, 0, Dispense 1 Glucometer, [facility] #[id number], Supply, 182, cm, 09/13/22 13:17:00 EST, Height/Length Dosing, 140.8, kg, 09/13/22 13:17:00 EST, Weight Dosing Start Date: 11/03/22 Status: Ordered Start: 10-28-2021 Glucometer Glu cometer, See Instructions, 1 EA, 0, Dispense 1 Glucometer, [facility] #[id number], Supply, 182, cm, 10/01/21 10:14:00 EST, Height/Length Dosing, 131.2, kg, 10/01/21 10:14:00 EST, Weight Dosing Start Date: 10/28/21 Status: Ordered Glucose (1 source) Start: 12-21-2024 Glucose Kit Gl ucose Kit, See Instructions, 1 EA, 0, Glucose meter. Include autolet, matching test strips, lancets, & alcohol wipes, #100 or as allowed by insurance; DX: E11.9, [facility] #[id number], Supply, 182, cm, 12/20/24 13:40:00 EDT, Height/Length [...] Pen Discontinued 35 UNIT SUBCUT Twice daily 3 June 21, 2023 12:26pm November 13, 2023 4:53pm Start: 06-21-2023 Insulin Glargi ne U-300 Conc (Toujeo Max U-300 Solostar) 300 unit/mL (3 mL) Insulin Pen Active 35 UNIT SUBCUT Twice daily 3 June 21, 2023 11:26am INSULIN GLARGINE,HUM.REC.ANLOG (LANTUS [...] End: 05-22-2024 0.3 mg, Intravitreal, Once P photo equipment technician, Starting on Mon05/22/24 at 1442, For 1 dose Start: 04-23-2024 End: 04-23-2024 0.3 mg, Intravitreal, Once P photo equipment technician, Starting on Mon04/23/24 at 1106, For 1 dose Symbicort 160/4.5 inhalation aerosol with adapter (20 sources) Start: 05-08-2023 take 1 dose by inhalation twice daily Symbicort 160/4.5 inhalation aerosol with adapter 2 puff(s), Inhalation, BID, 1 EA, Refill(s) 6, [facility] #[id number], 182, cm, 05/08/23 10:15:00 EDT, Height/Length Dosing, 137, kg, 05/08/23 10:15:00 EDT, Weight Dosing Start Date: 05/08/23 Status: Ordered Quantity: 1.0 Unit: EA Repeat number: 7 Indication: Unspecified asthma, uncomplicated Start: 05-08-2023 take 1 dose by inhal ation twice daily Symbicort 160/4.5 inhalation aerosol with adapter 2 puff(s), Inhalation, BID, 1 EA, Refill(s) 6, [facility] #[id number], 182, cm, 05/08/23 10:15:00 EDT, Height/Length Dosing, 137, kg, 05/08/23 10:15:00 EDT, Weight Dosing Start Date: 05/08/23 Status: Ordered Start: 05-08-2023 End: 12-04-2023 take 1 dose by inhalation twice daily Symbicort 160/4.5 inhalation aerosol with adapter 2 puff(s), Inhalation, BID for 30 day(s), 1 EA, Refill(s) 6, [facility] #[id number], 182, cm, 05/08/23 10:15:00 EDT, Height/Length Dosing, [...] Start: 09-12-2023 take [address] [facility] every eight hours as needed for [...] kidney failure, unspecified] Onset: 10-18-2023 10-07-2023 Episodic Adjustment disorders (2 sources) Grief finding; Translations: [Adjustment disorder with depressed mood] 04-30-2025 Chronic Anxiety disorders (3 sources) Anxiety; Translations: [Anxiety disorder, unspecified] 01-22-2025 Chronic [...] outpatient CDI policy. Diabetes mellitus without complication (6 sources) Hyperglycemia; Translations: [Hyperglycemia, unspecified] Onset: 12-02-2024 [...] Chronic Other nutritional; endocrine; and metabolic disorders (10 sources) Body mass index 30+ - obesity; [...] (BMI) of 38.0 to 38.9 in adult (CMS/[facility])] 07-15-2024 Chronic Other nutritional; endocrine; and [...] failure with hypoxia] Onset: 09-12-2023 06-20-2023 Chronic Spondylosis; intervertebral disc disorders; other back problems (20 sources) Low back pain; Translations: [Low back pain] Onset: 06-13-2023 Resolved: 07-03-2023 08-27-2019 Episodic Superficial injury; contusion (1 source) Contusion of [...] 09-17-2023 Episodic Crushing injury or internal injury (4 sources) Late effect of internal injury to [...] sources) Long-term current use of insulin; Translations: [penitentiary (current) use of insulin] Onset: 05-22-2023 Episodic [...] 06-13-2023 06-17-2022 Episodic Other connective tissue disease (4 sources) Muscle weakness; Translations: [Muscle weakness (generalized)] Onset: 11-17-2023 03-17-2025 Episodic Other lower respiratory disease (20 sources) Chronic cough; Translations: [Chronic cough] Onset: 06-13-2023 03-25-2019 Episodic Other nervous system disorders (20 sources) Impairment of balance; Translations: [Other abnormalities of gait and mobility] Onset: 06-13-2023 06-13-2023 Episodic Other nervous system disorders (4 sources) Coordination problem; Translations: [Unspecified lack of [...] with hypoxia] Onset: 06-12-2023 Resolved: 12-04-2023 Episodic Unclassified (20 sources) Methicillin resistant Staphylococcus [...] 02-18 Glucose [Mass/Vol] 228 mg/dL High 55-99 [facility] Comment on above: Result Comment: Thelma maxwell RN/MD Performed By: #### 2 [id number] #### [facility] Laboratory [address] [place] [address] Discharge Note-Nursingon Discharge Note-Nursing Discharge Note-Nursing NICOLE [...] Keep scheduled appointment Where: [address] [place] [address]- Business (1) Medications What How Much When Why Instructions Next Dose New insulin glargine (Insulin Glargine Prefilled Pen 100 units/ mL subcutaneous solution) 30 Units Subcutaneous 2 times a day Type 2 diabetes mellitus with hyperosmolar nonketotic hyperglycemia Refills: 1 Pickup at [facility] #[id number] Tonight at 9:00 PM New insulin lispro (HumaLOG KwikPen 100 units/ mL injectable solution) See instructions Type 2 diabetes mellitus with hyperosmolar nonketotic hyperglycemia TID PRN AC MEALS 150- 200 2 units, 200-250 4 u, 251-300 6 u, 301-350 8 u, 351-400 10 u, > 401 call your PCP Pickup at [facility] #[id number] Today at lunch Changed insulin regular (HumuLIN [...] Mouth Every day Hypertension Resume 03/08/2025 Unchanged [facility] Prescription (Glucose Kit) See instructions Hyperglycemia Glucose meter. Include autolet, matching test strips, lancets, & alcohol wipes, #100 or as allowed by insurance; DX: E11.9 Unchanged Misc Prescription (Pen Needle 31G x 6mm) See instructions Hyperglycemia Pen Needle 31G x 6mm Pharmacy Information [facility] #[id number]: [address] [place], [place] [id number] [phone] Test Results CBC BMP WBC: 6.9 E9/L [...] mmol/L (02/18 (more content not included)... Normal [facility] Inpatient Clinical Summaryon 03-07-2025 Inpatient Clinical Summary Inpatient Clinical Summary [address] [address] Clinical Summary Person Information: Name: NICOLE LORA Age: 65 Years : 1960 Sex: Male PCP: Mendy LYMAN, Mounika Lugo Marital Status: Phone: [phone] Race: White Ethnicity: Non- or Language: Hungarian Visit Id: Visit Reason: Hyperglycemia; Medical problem - minor; Leg pain-swelling; LEG PAIN Speciality: Acuity: Enc Type: Inpatient Med Service: Medical Arrival: 03/05/2025 19:53:39 Discharge: Dispo Type: Admit to ICCU Address: [address] [phone] Provider Notes: Diagnosis: 1:Leg muscle spasm; 4:CKD [...] Follow up: With: Address: When: Mounika Brooke [address] [facility] [place] [address] Business (1) Within 3 to 5 days Comments: Call for followup appointment Patient Education Information: Hyperglycemic Hyperosmolar State Normal [facility] Inpatient Patient Summaryon 03-07-2025 Inpatient Patient Summary Inpatient Patient Summary [address] [address] Patient Discharge Instructions PERSON INFORMATION [...] Follow up: With: Address: When: [place] [address] Business (1) Within 3 to 5 days Comments: Call [...] OCCURRED DURING YOUR HOSPITAL STAY New Medications [facility] #[id number], [address] [facility] [place], [place] [id number], [phone] insulin glargine (Insulin Glargine Prefilled Pen 100 [...] Hyperglycemic Hyperosmolar State (more content not included)... [facility] Interdisciplinary Note - Yimi e Manageron 03-07-2025 Interdisciplinary Note - Spa Director/Finance Interdisciplinary Note - Spa Director/Finance Patient is awake and alert in bed, previously rounded with Dr. Macario. Patient is from home independently, states with daughter 4 days per week who is disabled and has cancer. States trying to get motorized scooter approved by insurance and CRM contacted PCP office yesterday regarding this. Declines any HH or PM or further needs. Family will transport at [place]. Medicare rights reviewed and second copy provided. . PCP verified and insurance information reviewed and DME discussed. Contact information provided and white board updated. [facility] Comment on above: Result Comment: Elec tronically Signed By: Darlyn HALL, Lolis\.samir\Date and Time Signed: 03/07/25 09:09 EDT Patient Education - Texton 0 03-07-2025 Patient Education - Text Patient Education - Text [facility] BMPon 03-06-2025 Anion gap [Moles/Vol] 12 mmol/L Normal -16 [facility] Comment on above: Performed By: #### 2 [id number] #### [facility] Laboratory [address] [place] [address] BUN/Creat Ratio 22 No Units High 10-20 [facility] Comment on above: Performed By: #### 2 [id number] #### [facility] Laboratory [address] [place] [address] Calcium [Mass/Vol] 8.4 mg/dL Low 8.9-11.1 [facility] Comment on above: Performed By: #### 2 [id number] #### [facility] Laboratory [address] [place] [address] Chloride [Moles/Vol] 100 mmol/L Low 101-[address] [facility] Comment on above: Result Comment: Delt a check verified Performed By: #### 2 [id number] #### [facility] [address] [place] [address] CO2 [Moles/Vol] 26 mmol/L Normal 21-31 [facility] Comment on above: Performed By: #### 2 [id number] #### [facility] Laboratory [address] [place] [address] Creatinine [Mass/Vol] 1.6 mg/dL High 0.5-1.3 [facility] Comment on above: Result Comment: Delt a check verified Performed By: #### 2 [id number] #### [facility] Laboratory [address] [place] [address] Glucose [Mass/Vol] 224 mg/dL High 55-199 [facility] Comment on above: Performed By: #### 2 [id number] #### [facility] Laboratory [address] [place] [address] Potassium [Moles/Vol] 3.8 mmol/L Normal 3.5-5.3 [facility] Comment on above: Result Comment: Delt a check verified Performed By: #### 2 [id number] #### [facility] Laboratory [address] [place] [address] Sodium [Moles/Vol] 134 mmol/L Low 135-145 [facility] Comment on above: Performed By: #### 2 [id number] #### [facility] Laboratory [address] [place] [address] Urea nitrogen [Mass/Vol] 35 mg/dL High 5- [facility] Comment on above: Performed By: #### 2 [id number] #### [facility] Laboratory [address] [place] [address] Capillary Glucose POCon 02-18 Glucose [Mass/Vol] 172 mg/dL High 55-99 [facility] Comment on above: Result Comment: Thelma maxwell RN/ Performed By: #### 2 [id number] #### [facility] Laboratory [address] [place] [address] Glucose [Mass/Vol] 121 mg/dL High 55-99 [facility] Comment on above: Result Comment: Thelma maxwell RN/ Performed By: #### 2 [id number] #### [facility] Laboratory [address] [place] [address] Glucose [Mass/Vol] 186 mg/dL High 55-99 [facility] Comment on above: Performed By: #### 2 [id number] #### [facility] Laboratory [address] [place] [address] Glucose [Mass/Vol] 225 mg/dL High 55-99 [facility] Comment on above: Performed By: #### 2 [id number] #### [facility] Laboratory [address] [place] [address] Glucose [Mass/Vol] 128 mg/dL High 55-99 [facility] Comment on above: Performed By: #### 2 [id number] #### [facility] Laboratory [address] [place] [address] Glucose [Mass/Vol] 168 mg/dL High 55-99 [facility] Comment on above: Result Comment: Pricila elbert Meter Performed By: #### 2 [id number] #### [facility] Laboratory [address] [place] [address] Glucose [Mass/Vol] 163 mg/dL High 55-99 [facility] Comment on above: Result Comment: Pricila elbert Meter Performed By: #### 2 [id number] #### [facility] Laboratory [address] [place] [address] Glucose [Mass/Vol] 229 mg/dL High 55-99 [facility] Comment on above: Result Comment: Pricila elbert Meter Performed By: #### 2 [id number] #### [facility] Laboratory [address] [place] [address] Glucose [Mass/Vol] 214 mg/dL High 55-99 [facility] Comment on above: Result Comment: Pricila elbert Meter Performed By: #### 2 [id number] #### [facility] Laboratory [address] [place] [address] Glucose [Mass/Vol] 241 mg/dL High 55-99 [facility] Comment on above: Result Comment: Pricila elbert Meter Performed By: #### 2 [id number] #### [facility] Laboratory [address] [place] [address] Glucose [Mass/Vol] 322 mg/dL High 55-99 [facility] Comment on above: Result Comment: Pricila elbert Meter Performed By: #### 2 [id number] #### [facility] Laboratory [address] [place] [address] Glucose [Mass/Vol] 384 mg/dL High 55-99 [facility] Comment on above: Result Comment: Pricila elbert Meter Performed By: #### 2 [id number] #### [facility] Laboratory [address] [place] [address] Glucose [Mass/Vol] 440 mg/dL High 55-99 [facility] Comment on above: Result Comment: Pricila elbert Meter Performed By: #### 2 [id number] #### [facility] Laboratory [address] [place] [address] ED Note-Physicianon 03-06-20 ED Note-Physician ED Note-Physician [...] and Complexity of Problems Differential Diagnosis: [] [facility] Data External documents reviewed: [] My EKG [...] EDT, ST (more content not included)... Normal [facility] Comment on above: Result Comment: Elec tronically Signed By: Shira Snider, Alejandro Esteves\.br\Date and Time Signed: 03/06/25 00:11 EDT Extra Sharon 03-06-2025 WB Tube Collected Yes Invalid Interpretation Code [facility] Comment on above: Performed By: #### 1 [id number] #### [facility] Laboratory [address] [place] [address] Glucoseon 03-06-2025 Glucose [Mass/Vol] 551 mg/dL Abnormal 55-199 [facility] Comment on above: Result Comment: Crit ical Result Verified by Previous Result Critical Result [id number] Called to and read back by: DIGNA MARX at: 03/06/2025 00:04:06 by:[email or web address] Performed By: #### 2 [id number] #### [facility] Laboratory [address] [place] [address] Inpatient Clinical Summaryon 03-06-2025 Inpatient Clinical Summary Inpatient Clinical Summary [address] [address] Clinical Summary Person Information: Name: NICOLE LORA Age: 65 Years : 1960 Sex: Male PCP: Mounika Brooke MD Marital Status: Phone: [phone] Race: White Ethnicity: Non- or Language: Hungarian Visit Id: Visit Reason: Hyperglycemia; Medical problem - minor; Leg pain-swelling; LEG PAIN Speciality: Acuity: Enc Type: Inpatient Med Service: Medical Arrival: 03/05/2025 19:53:39 Discharge: Dispo Type: Admit to ICCU Address: [address] [phone] Provider Notes: Diagnosis: 1:Leg muscle spasm; 4:CKD [...] Tablets By Mouth every day. Refills: 1. [facility] Prescription (Glucose Kit) Glucose meter. Include autolet, matching test strips, lancets, & alcohol wipes, #100 or as allowed by insurance; DX: E11.9. Refills: 0. Misc Prescription (Pen Needle 31G x 6mm) Pen Needle 31G x 6mm. Refills: 1. Care Team Members: Attending Physician: Jigna Suarez MD Consulting Physician: Referring Physician: Follow up: Patient Education Information: Normal [facility] Inpatient Patient Summaryon 03-06-2025 Inpatient Patient Summary Inpatient Patient Summary [place] [id number] Patient Discharge Instructions PERSON INFORMATION Name: EGNO NICOLE Jesus Date of : 1960 Current Date: 03/06/2025 [...] to find a nearby participating provider. Comment: IGENO JOHN A, have received the attached patient [...] to serve you. Thank you for choosing [facility] Normal [facility] Interdisciplinary Note - Yimi e Manageron 03-06-2025 Interdisciplinary Note - Spa Director/Finance Interdisciplinary Note - Spa Director/Finance CRM to room ICU 7 Patient is [...] Dr Macario patient may move to the [facility]. Patient was provided CRM contact, white board [...] regard to his electric scooter order Normal [facility] Comment on above: Result Comment: Elec tronically Signed By: Jodee Giang\.br\Date and Time Signed: 03/06/25 16:16 EDT Interdisciplinary Note - Spa Director/Finance Interdisciplinary Note - Spa Director/Finance CRM to room ICU 7 Patient is [...] Dr Macario patient may move to the [facility]. Patient was provided CRM contact, white board updated. CRM following DC date TBD, DC plan home, declined needs Normal [facility] Comment on above: Result Comment: Elec tronically Signed By: Jodee Giang\.br\Date and Time Signed: 03/06/25 10:21 EDT Patient Education - Texton 0 03-06-2025 Patient Education - Text Patient Education - Text Normal [facility] XR Chest Single Viewon 03-06 XR Chest [...] MD Transcribed by: KAT Technologist: CML Normal [facility] eGFRon 03-06-2025 eGFR 47 mL/min/1.73 m2 Low >=59 [facility] Comment on above: Performed By: #### 1 [id number] #### [facility] Laboratory [address] [place] [address] BMPon 03-05-2025 Glucose [Mass/Vol] 1084 mg/dL Abnormal 55-199 [facility] Comment on above: Result Comment: Crit ical Result Verified by Repeat Analysis Critical Result [id number] Called to and read back by: KELY GE at: 03/05/2025 21:05:22 by:[id number] Performed By: #### 2 [id number] #### [facility] Laboratory [address] [place] [address] Sodium [Moles/Vol] 119 mmol/L Abnormal 135-145 [facility] Comment on above: Result Comment: Crit ical Result Verified by Repeat Analysis Critical Result [id number]_NA [id number] Called to and read back by: KELY GE at: 03/05/2025 21:05:22 by:[email or web address] Performed By: #### 2 [id number] #### [facility] Laboratory [address] [place] [address] Anion gap [Moles/Vol] 13 mmol/L Normal 6-16 [facility] Comment on above: Performed By: #### 2 [id number] #### [facility] Laboratory [address] [place] [address] BUN/Creat Ratio 21 No Units High 10-20 [facility] Comment on above: Performed By: #### 2 [id number] #### [facility] Laboratory [address] [place] [address] Calcium [Mass/Vol] 8.4 mg/dL Low 8.9-11.1 [facility] Comment on above: Performed By: #### 2 [id number] #### [facility] Laboratory [address] [place] [address] Chloride [Moles/Vol] 86 mmol/L Low 101-[address] [facility] Comment on above: Performed By: #### 2 [id number] #### [facility] Laboratory [address] [place] [address] CO2 [Moles/Vol] 25 mmol/L Normal 21-31 [facility] Comment on above: Performed By: #### 2 [id number] #### [facility] Laboratory [address] [place] [address] Creatinine [Mass/Vol] 1.9 mg/dL High 0.5-1.3 [facility] Comment on above: Performed By: #### 2 [id number] #### [facility] Laboratory [address] [place] [address] Potassium [Moles/Vol] 4.6 mmol/L Normal 3.5-5.3 [facility] Comment on above: Performed By: #### 2 [id number] #### [facility] Laboratory [address] [place] [address] Urea nitrogen [Mass/Vol] 40 mg/dL High 5-21 [facility] Comment on above: Performed By: #### 2 [id number] #### [facility] Laboratory [address] [place] [address] BOHBon 03-05-2025 Beta HB Qnt 0.45 mmol/L High 0.02-0.27 [facility] Comment on above: Performed By: #### 2 [id number] #### [facility] Laboratory [address] [place] [address] CBC w/ Auto Diffon 5 Basophil Absolute 0.1 E9/L Normal 0.0-0.2 [facility] Comment on above: Performed By: #### 2 [id number] #### [facility] Laboratory [address] [place] [address] Basophils/100 WBC (Bld) 0.9 % Normal 0.0-2.0 [facility] Comment on above: Performed By: #### 2 [id number] #### [facility] Laboratory [address] [place] [address] Eos Absolute 0.2 E9/L Normal 0.0-0.5 [facility] Comment on above: Performed By: #### 2 [id number] #### [facility] Laboratory [address] [place] [address] Eosinophils/100 WBC (Bld) 2.4 % Normal 0.0-8.0 [facility] Comment on above: Performed By: #### 2 [id number] #### [facility] Laboratory [address] [place] [address] Erythrocyte distribution width (RBC) [Ratio] 12.9 % Normal 10.9-14.2 [facility] Comment on above: Performed By: #### 2 [id number] #### [facility] Laboratory [address] [place] [address] Hematocrit (Bld) [Volume fraction] 44.1 % Normal 37.7-49.0 [facility] Comment on above: Performed By: #### 2 [id number] #### [facility] Laboratory [address] [place] [address] Hemoglobin (Bld) [Mass/Vol] 14.7 g/dL Normal 13.5-17.5 [facility] Comment on above: Performed By: #### 2 [id number] #### [facility] Laboratory [address] [place] [address] Lymph Absolute 1.2 E9/L Normal 1.0-4.0 [facility] Comment on above: Performed By: #### 2 [id number] #### [facility] Laboratory [address] [place] [address] Lymphocytes/100 WBC (Bld) 17.9 % Normal 14.0-50.0 [facility] Comment on above: Performed By: #### 2 [id number] #### [facility] Laboratory [address] [place] [address] MCH (RBC) [Entitic mass] 31.2 pg Normal 27.0-34.0 [facility] Comment on above: Performed By: #### 2 [id number] #### [facility] Laboratory [address] [place] [address] MCHC (RBC) [Mass/Vol] 33.2 g/dL Normal 31.4-36.0 [facility] Comment on above: Performed By: #### 2 [id number] #### [facility] [facility] [address] [place] [address] MCV (RBC) [Entitic vol] 93.8 fL Normal 80.0-100.0 [facility] Comment on above: Performed By: #### 2 [id number] #### [facility] [address] [place] [address] [place] Absolute 0.4 E9/L Normal 0.2-1.0 [facility] Comment on above: Performed By: #### 2 [id number] #### [facility] [address] [place] [address] Monocytes/100 WBC (Bld) 6.5 % Normal 4.0-14.0 [facility] Comment on above: Performed By: #### 2 [id number] #### [facility] [address] [place] [address] Neutro Absolute 5.0 E9/L Normal 2.0-7.5 [facility] Comment on above: Performed By: #### 2 [id number] #### [facility] [address] [place] [address] Neutro Auto 72.3 % Normal 36.0-75.0 [facility] Comment on above: Performed By: #### 2 [id number] #### [facility] [address] [place] [address] Platelet 230.0 E9/L Normal 150.0-500.0 [facility] Comment on above: Performed By: #### 2 [id number] #### [facility] [address] [place] [address] Platelet mean volume (Bld) [Entitic vol] 8.1 fL Normal 6.4-10.8 [facility] Comment on above: Performed By: #### 2 [id number] #### [facility] [address] [place] [address] RBC 4.7 E12/L Normal 4.3-5.9 [facility] Comment on above: Performed By: #### 2 [id number] #### [facility] [address] [place] [address] WBC 6.9 E9/L Normal 4.0-11.0 [facility] Comment on above: Performed By: #### 2 [id number] #### [facility] [address] [place] [address] Capillary Glucose POCon 02-18 Glucose Cap >500 Abnormal 55-99 [facility] Comment on above: Result Comment: Pricila elbert Meter Performed By: #### 2 [id number] #### [facility] [address] [place] [address] Glucose Cap >500 Abnormal 55-99 [facility] Comment on above: Result Comment: Pricila elbert Meter Performed By: #### 2 [id number] #### [facility] [address] [place] [address] Glucose Cap >500 Abnormal 55-99 [facility] Comment on above: Performed By: #### 2 [id number] #### [facility] [address] [place] [address] ED Clinical Summaryon 2024 ED Clinical Summary ED Clinical Summary [address] [id number] ED Clinical Summary Person Information Name: NICOLE LORA[place] Age: 65 Years : 1960 Sex: Male Language: Hungarian PCP: Mounika Brooke MD Marital Status: Phone: [phone] Visit Id: Visit Reason: Hyperglycemia; Medical problem [...] 21:34:31 03/05/2025 21:34:31 03/05/2025 21:34:31 ADDRESS: [address] [place] [phone] PHYS DOC NOTES: MEDICAL INFORMATION: Prescriptions Given: [...] EDUCATION INFORMATION: Instructions: Follow up: DIAGNOSIS: Normal [facility] ED Patient Education Noteon 03-05-2025 ED Patient Education Note ED Patient Education Note Normal [facility] ED Patient Summaryon 025 ED Patient Summary ED Patient Summary [address] [address] Patient Discharge Instructions Person Information Name: NICOLE LORA Age: 65 Years Arrival Date: 03/05/2025 19:53:39 Discharge Diagnosis: Primary Care Physician: Mendy LYMAN, Mounika Lugo Provider Information Primary Provider: Alejandro Silva M.D. [employer] Supervisor:None The exam and treatment you received in the Emergency Department were for an urgent problem and are not intended as complete care. It is important that you follow up with a doctor, nurse practitioner, or physician???s historian research assistant for ongoing care. If your symptoms [...] opioids can be used to help relieve vxijpkmz-ux-cjclin pain and are often prescribed following a [...] be struggling with addiction, tell your health vocational childcare teacher and ask for guidance or call [facility]???S National Helpline at 2-039-750-HELP. v Source: [place] Department of Health and Human Services/Center for Disease Control & Prevention [facility] (more content not included)... Normal [facility] Extra Blueon 03-05-2025 Tube Collected Plasma Yes Invalid Interpretation Code [facility] Comment on above: Performed By: #### 1 [id number] #### [facility] [address] [place] [address] Glucoseon 03-05-2025 Glucose [Mass/Vol] 726 mg/dL Abnormal 55-199 [facility] Comment on above: Result Comment: Crit ical Result Verified by Repeat Analysis Critical Result [id number] Called to and read back by: BINA GONZALEZ at: 03/05/2025 23:09:06 by:[email or web address] Performed By: #### 2 [id number] #### [facility] [address] [place] [address] Hep Func Panelon 03-05-2025 Albumin [Mass/Vol] 3.3 g/dL Normal 3.3-5.0 [facility] Comment on above: Performed By: #### 2 [id number] #### [facility] [address] [place] [address] Albumin/Globulin [Mass ratio] 1.2 {ratio} Normal 1.1-2.2 [facility] Comment on above: Performed By: #### 2 [id number] #### [facility] [address] [place] [address] Alk Phos 160 Int._Unit/L High 21-98 [facility] Comment on above: Performed By: #### 2 [id number] #### [facility] [address] [place] [address] ALT 19 Int._Unit/L Normal 6-46 [facility] Comment on above: Performed By: #### 2 [id number] #### [facility] [address] [place] [address] AST 15 Int._Unit/L Normal 5-43 [facility] Comment on above: Performed By: #### 2 [id number] #### [facility] [address] [place] [address] Bili Direct 0.1 mg/dL Normal 0.0-0.4 [facility] Comment on above: Performed By: #### 2 [id number] #### [facility] [address] [place] [address] Bili Indirect 0.6 mg/dL Normal 0.1-0.9 [facility] Comment on above: Performed By: #### 2 [id number] #### [facility] [address] [place] [address] Bili Total 0.7 mg/dL Normal 0.0-1.1 [facility] Comment on above: Performed By: #### 2 [id number] #### [facility] [address] [place] [address] Globulin (S) [Mass/Vol] 2.8 g/dL Normal 1.4-4.0 [facility] Comment on above: Performed By: #### 2 [id number] #### [facility] [address] [place] [address] Protein [Mass/Vol] 6.1 g/dL Normal 6.0-7.8 [facility] Comment on above: Performed By: #### 2 [id number] #### [facility] [address] [place] [address] Magnesiumon 03-05-2025 Magnesium [Mass/Vol] 2.0 mg/dL Normal 1.3-2.[address] [facility] Comment on above: Performed By: #### 2 [id number] #### [facility] [address] [place] [address] Pre-Arrival Noteon 5 Pre-Arrival Note Pre-Arrival Note Pre-Arrival Summary Name: , Current Date: 03/05/2025 19:54:07 EDT Gender: Male Date of : Age: 65 Pre-Arrival Type: EMS ETA: 03/05/2025 20:14:00 EDT Primary Care Physician: Presenting Problem: leg pain Pre-Arrival User: Liberty Cope RN Referring Source: Location: Completion Date/Time: 03/05/2025 19:44:00 [facility] Emergency Department Pre-Hospital Report Form Vital Signs: Pre-Hospital Report: Treatment in Route: Response to Treatment: Misc. Issues: Normal [facility] Troponinon 03-05-2025 Troponin HS 10.10 pg/mL Low 15.90-38.40 [facility] Comment on above: Result Comment: The 95% CI (Confidence Interval) PPV (Positive Predictive Value) for myocardial infarction in females is 38 pg/mL, in males 51 pg/mL. The results should be used in conjunction with clinical conditions of myocardial infarction. (Access High Sensitivity Troponin I Instructions For Use, Opal Shirlene, March 2018) Performed By: #### 2 [id number] #### [facility] [address] [place] [address] UA with Cult Rflxon 03-05-20 25 Color (U) Colorless Abnormal Yellow [facility] Comment on above: Result Comment: Micr oscopic readings are only performed on those samples that meet specific criteria set forth by [facility]. Performed By: #### 4 [id number] #### [facility] [address] [place] [address] Ketones Ql (U) Negative Normal Negative [facility] Comment on above: Performed By: #### 4 [id number] #### [facility] [address] [place] [address] UA Blood Negative Normal Negative [facility] Comment on above: Performed By: #### 4 [id number] #### [facility] [address] [place] [address] UA Clarity Clear Normal Clear [facility] Comment on above: Performed By: #### 4 [id number] #### [facility] [address] [place] [address] UA Glucose 4+ mg/dL Abnormal Negative [facility] Comment on above: Performed By: #### 4 [id number] #### [facility] [address] [place] [address] UA Leuk Est Negative Normal Negative [facility] Comment on above: Performed By: #### 4 [id number] #### [facility] [address] [place] [address] UA Mucous Negative Normal Negative [facility] Comment on above: Performed By: #### 4 [id number] #### [facility] [address] [place] [address] UA Nitrite Negative Normal Negative [facility] Comment on above: Performed By: #### 4 [id number] #### [facility] [address] [place] [address] UA pH 6.0 Invalid Interpretation Code 5.0-9.0 [facility] Comment on above: Performed By: #### 4 [id number] #### [facility] [address] [place] [address] UA Protein 1+ mg/dL Abnormal Negative [facility] Comment on above: Performed By: #### 4 [id number] #### [facility] [address] [place] [address] UA RBC 0-3 Normal 0-3 [facility] Comment on above: Performed By: #### 4 [id number] #### [facility] [address] [place] [address] UA Spec Grav 1.024 Invalid Interpretation Code 1.005-1.030 [facility] Comment on above: Performed By: #### 4 [id number] #### [facility] [address] [place] [address] UA Urobilinogen Negative Normal Negative [facility] Comment on above: Performed By: #### 4 [id number] #### [facility] [address] [place] [address] UA WBC 0-5 Normal 0-5 [facility] Comment on above: Performed By: #### 4 [id number] #### [facility] [address] [place] [address] Urobilinogen (U) [Mass/Vol] Negative Normal Negative [facility] Comment on above: Performed By: #### 4 [id number] #### [facility] [address] [place] [address] UA Spec Desc Clean Catch Normal [facility] Comment on above: Performed By: #### 4 [id number] #### [facility] [address] [place] [address] eGFRon 03-05-2025 eGFR 38 mL/min/1.73 m2 Low >=59 [facility] Comment on above: Performed By: #### 1 [id number] #### [facility] [address] [place] [address] Basic Metabolic Panelon 05-0 Anion gap [Moles/Vol] 13.7 mmol/L Normal 6.0-15.0 [facility] Comment on above: Performed By: #### B MP, MG, BHOB, CBC #### [facility] [address] Calcium [Mass/Vol] 8.9 mg/dL Normal 8.6-10.3 [facility] Comment on above: Performed By: #### B MP, MG, BHOB, CBC #### [facility] [address] [place] [id number] [place] Chloride [Moles/Vol] 98 mmol/L Normal 98-107 [facility] Comment on above: Performed By: #### B MP, MG, BHOB, CBC #### [facility] [address] [id number] [place] CO2 [Moles/Vol] 23.1 mmol/L Normal 21.0-31.0 [facility] Comment on above: Performed By: #### B MP, MG, BHOB, CBC #### [facility] [address] [place] [id number] [place] Creatinine [Mass/Vol] 1.72 mg/dL High 0.70-1.30 [facility] Comment on above: Performed By: #### B MP, MG, BHOB, CBC #### [facility] [address] [place] [id number] [place] Creatinine Clr Calc Pharmacy 55.60 Normal [facility] Comment on above: Performed By: #### B MP, MG, BHOB, CBC #### [address] Estimated GFR 43.569 mL/Min Normal [facility] Comment on above: Performed By: #### B MP, MG, BHOB, CBC #### [address] Glucose [Mass/Vol] 739 mg/dL Off scale high 70-100 Th e [facility] Comment on above: Result Comment: Crit ical Result Called to and read back by: SAMPSON WESTON at: 12/22/2024 18:30:49 by:[id number] Random Glucose Reference Range is dependent on time and content of last meal. Glucose of more than 200 mg/dL in a nonstressed, ambulatory subject supports the diagnosis of Diabetes Mellitus. ADA recommended reference range Performed By: #### B MP, MG, BHOB, CBC #### [address] Potassium [Moles/Vol] 4.8 mmol/L Normal 3.5-5.1 [facility] Comment on above: Performed By: #### B MP, MG, BHOB, CBC #### [place] [address] [place] Sodium [Moles/Vol] 130 mmol/L Low 136-145 [facility] Comment on above: Performed By: #### B MP, MG, BHOB, CBC #### [place] [address] [place] Urea nitrogen [Mass/Vol] 38 mg/dL High 7-25 [facility] Comment on above: Performed By: #### B MP, MG, BHOB, CBC #### [place] [address] [place] Beta Hydroxybuterateon 12-22 Beta Hydroxybuterate 1.12 mmol/L High 0.02-0.27 [facility] Comment on above: Result Comment: PERF ORMED BY: [place] [address] PATHOLOGIST CONFIGURATION RELEASE MANAGER MARIA LUISA SHAH M.D. Performed By: #### B MP, MG, BHOB, CBC #### [address] Complete Blood Count Auto Di ffon 12-22-2024 Basophils (Bld) [#/Vol] 0.2 10*3/uL Normal 0.0-0.2 [facility] Comment on above: Result Comment: PERF ORMED BY: [place] [address] PATHOLOGIST CONFIGURATION RELEASE MANAGER MARIA LUISA SHAH M.D. Performed By: #### B MP, MG, BHOB, CBC #### [address] Basophils/100 WBC (Bld) 2.6 % Normal . [facility] Comment on above: Performed By: #### B MP, MG, BHOB, CBC #### [address] Eosinophils (Bld) [#/Vol] 0.1 10*3/uL Normal 0.0-0.45 [facility] Comment on above: Performed By: #### B MP, MG, BHOB, CBC #### [address] Eosinophils/100 WBC (Bld) 2.0 % Normal . [facility] Comment on above: Performed By: #### B MP, MG, BHOB, CBC #### [address] Erythrocyte distribution width (RBC) [Ratio] 13.9 % Normal 12.0-14.8 [facility] Comment on above: Performed By: #### B MP, MG, BHOB, CBC #### [address] Hematocrit (Bld) [Volume fraction] 45.4 % Normal 38.8-50.0 [facility] Comment on above: Performed By: #### B MP, MG, BHOB, CBC #### [address] Hemoglobin (Bld) [Mass/Vol] 15.2 g/dL Normal 13.0-17.0 [facility] Comment on above: Performed By: #### B MP, MG, BHOB, CBC #### [address] Lymphocytes (Bld) [#/Vol] 1.5 10*3/uL Normal 1.00-4.8 [facility] Comment on above: Performed By: #### B MP, MG, BHOB, CBC #### [address] Lymphocytes/100 WBC (Bld) 23.7 % Normal . [facility] Comment on above: Performed By: #### B MP, MG, BHOB, CBC #### [address] MCH (RBC) [Entitic mass] 31.5 pg Normal 27.5-35.2 [facility] Comment on above: Performed By: #### B MP, MG, BHOB, CBC #### [address] MCV (RBC) [Entitic vol] 93.9 fL Normal 83.5-101 [facility] Comment on above: Performed By: #### B MP, MG, BHOB, CBC #### [address] Mean Corpuscular HGB Conc 33.5 g/dL Normal 32.5-35.6 [facility] Comment on above: Performed By: #### B MP, MG, BHOB, CBC #### [address] Monocytes (Bld) [#/Vol] 0.6 10*3/uL Normal 0.0-0.8 [facility] Comment on above: Performed By: #### B MP, MG, BHOB, CBC #### [address] Monocytes/100 WBC (Bld) 17.04 % Normal 0.00-20.00 [facility] Comment on above: Performed By: #### B MP, MG, BHOB, CBC #### [place] [address] [place] Monocytes/100 WBC (Bld) 9.3 % Normal . [facility] Comment on above: Performed By: #### B MP, MG, BHOB, CBC #### [address] Neutrophils (Bld) [#/Vol] 3.9 10*3/uL Normal 1.8-7.7 [facility] Comment on above: Performed By: #### B MP, MG, BHOB, CBC #### [address] Neutrophils/100 WBC (Bld) 62.4 % Normal . [facility] Comment on above: Performed By: #### B MP, MG, BHOB, CBC #### [address] NRBC% 0.1 /100{WBC} Normal 0-0.5 [facility] Comment on above: Performed By: #### B MP, MG, BHOB, CBC #### [place] [address] [place] Platelet mean volume (Bld) [Entitic vol] 8.2 fL Normal 6.6-10.1 [facility] Comment on above: Performed By: #### B MP, MG, BHOB, CBC #### [place] [address] [place] Platelets (Bld) [#/Vol] 206 10*3/uL Normal 150-450 [facility] Comment on above: Performed By: #### B MP, MG, BHOB, CBC #### [place] [address] [place] RBC (Bld) [#/Vol] 4.83 10*6/uL Normal 3.90-5.60 [facility] Comment on above: Performed By: #### B MP, MG, BHOB, CBC #### [place] [address] [place] WBC (Bld) [#/Vol] 6.2 10*3/uL Normal 4.1-10.5 [facility] Comment on above: Performed By: #### B MP, MG, BHOB, CBC #### [facility] [address] Glucose Poct Glucometerson 0 12-22-2024 Glucose [Mass/Vol] 394 mg/dL Normal [facility] Comment on above: Result Comment: [place] om Glucose Reference Range is dependent on time and content of last meal. Glucose of more than 200 mg/dL in a nonstressed, ambulatory subject supports the diagnosis of Diabetes Mellitus. PERFORMED BY: [place] [address] PATHOLOGIST CONFIGURATION RELEASE MANAGER MARIA LUISA SHAH M.D. Performed By: #### G LULS #### Point of Care testing , Commemt1 Normal [facility] Comment on above: Result Comment: Glu2 : WILL NOTIFY DR/RN PERFORMED BY: [place] [address] PATHOLOGIST CONFIGURATION RELEASE MANAGER MARIA LUISA SHAH M.D. Performed By: #### G LULS #### Point of Care testing , Glucose [Mass/Vol] 514 mg/dL Off scale high Th e [facility] Comment on above: Result Comment: [place] Glucose Reference Range is dependent on time and content of last meal. Glucose of more than 200 mg/dL in a nonstressed, ambulatory subject supports the diagnosis of Diabetes Mellitus. Performed By: #### G LULS #### Point of Care testing , Magnesiumon 12-22-2024 Magnesium [Mass/Vol] 2.0 mg/dL Normal 1.9-2.7 [facility] Comment on above: Performed By: #### B MP, MG, BHOB, CBC #### [facility] [address] Venous Blood [place] CO2 [Moles/Vol] 24.3 mmol/L Normal 24.0-29.0 [facility] Comment on above: Performed By: #### V BG #### Point of Care testing , HCO3 (Bld) [Moles/Vol] 23.1 mmol/L Normal 23.0-29.0 [facility] Comment on above: Performed By: #### V BG #### Point of Care testing , Respiratory Critical Normal [facility] Comment on above: Result Comment: Crit ical Value called on: 12/22/2024 at 17:51 PERFORMED BY: [facility] [place] [address] PATHOLOGIST CONFIGURATION RELEASE MANAGER MARIA LUISA SHAH M.D. Performed By: #### V BG #### Point of Care testing , VBG Base Excess -1.8 mmol/L Normal -3.0-3.0 [facility] Comment on above: Performed By: #### V BG #### Point of Care testing , VBG Draw Site Venous Normal [facility] Comment on above: Performed By: #### V BG #### Point of Care testing , VBG Frac Inspired O2 21 % Normal [facility] Comment on above: Performed By: #### V BG #### Point of Care testing , VBG O2 Content 6.8 mmol/L Normal 6.6-9.7 The [facility] [facility] Comment on above: Performed By: #### V BG #### Point of Care testing , VBG Oxygen Saturation 68.3 % Low 73.0-76.0 [facility] Comment on above: Performed By: #### V BG #### Point of Care testing , VBG PCO2 39.8 mm[Hg] Normal 38.0-50.0 [facility] Comment on above: Performed By: #### V BG #### Point of Care testing , VBG PH Venous PH 7.38 Normal 7.32-7.43 [facility] Comment on above: Performed By: #### V BG #### Point of Care testing , VBG PO2 32.0 mm[Hg] Low 35.0-45.0 [facility] Comment on above: Performed By: #### V BG #### Point of Care testing , CBC w/ Auto Diffon 05-03-202 5 Basophils/100 WBC (Bld) 0.9 % Normal 0.0-2.0 [facility] Comment on above: Performed By: #### 2 [id number] #### [facility] Laboratory [address] [place] [address] Basophils/Leukocytes Auto (Bld) [Pure # fraction] 0.1 E9/L Normal 0.0-0.2 [facility] Comment on above: Performed By: #### 2 [id number] #### [facility] Laboratory [address] [place] [address] Eosinophils (Bld) [#/Vol] 0.3 E9/L Normal 0.0-0.5 [facility] Comment on above: Performed By: #### 2 [id number] #### [facility] [address] [place] [address] Eosinophils/100 WBC (Bld) 4.2 % Normal 0.0-8.0 [facility] Comment on above: Performed By: #### 2 [id number] #### [facility] [address] [place] [address] Erythrocyte distribution width (RBC) [Ratio] 14.0 % Normal 10.9-14.2 [facility] Comment on above: Performed By: #### 2 [id number] #### [facility] [address] [place] [address] Hematocrit (Bld) [Volume fraction] 40.7 % Normal 37.7-49.0 [facility] Comment on above: Performed By: #### 2 [id number] #### [facility] [address] [place] [address] Hemoglobin (Bld) [Mass/Vol] 14.3 g/dL Normal 13.5-17.5 [facility] Comment on above: Performed By: #### 2 [id number] #### [facility] [address] [place] [address] Lymphocytes (Bld) [#/Vol] 1.9 E9/L Normal 1.0-4.0 [facility] Comment on above: Performed By: #### 2 [id number] #### [facility] [address] [place] [address] Lymphocytes/100 WBC (Bld) 26.6 % Normal 14.0-50.0 [facility] Comment on above: Performed By: #### 2 [id number] #### [facility] [address] [place] [address] MCH (RBC) [Entitic mass] 31.3 pg Normal 27.0-34.0 [facility] Comment on above: Performed By: #### 2 [id number] #### [facility] [address] [place] [address] MCHC (RBC) [Mass/Vol] 35.1 g/dL Normal 31.4-36.0 [facility] Comment on above: Performed By: #### 2 [id number] #### [facility] [address] [place] [address] MCV (RBC) [Entitic vol] 89.2 fL Normal 80.0-100.0 [facility] Comment on above: Performed By: #### 2 [id number] #### [facility] [address] [place] [address] Monocytes (Bld) [#/Vol] 0.5 E9/L Normal 0.2-1.0 [facility] Comment on above: Performed By: #### 2 [id number] #### [facility] [address] [place] [address] Neutrophils (Bld) [#/Vol] 4.4 E9/L Normal 2.0-7.5 [facility] Comment on above: Performed By: #### 2 [id number] #### [facility] [address] [place] [address] Neutrophils/100 WBC (Bld) 61.3 % Normal 36.0-75.0 [facility] Comment on above: Performed By: #### 2 [id number] #### [facility] [address] [place] [address] Platelet mean volume (Bld) [Entitic vol] 8.2 fL Normal 6.4-10.8 [facility] Comment on above: Performed By: #### 2 [id number] #### [facility] [address] [place] [address] Platelets (Bld) [#/Vol] 205.0 E9/L Normal 150.0-500.0 [facility] Comment on above: Performed By: #### 2 [id number] #### [facility] [address] [place] [address] RBC (Bld) [#/Vol] 4.6 E12/L Normal 4.3-5.9 [facility] Comment on above: Performed By: #### 2 [id number] #### [facility] [address] [place] [address] WBC corrected for nucl RBC Auto (Bld) [#/Vol] 7.1 E9/L Normal 4.0-11.0 [facility] Comment on above: Performed By: #### 2 [id number] #### [facility] [address] [place] [address] CHEMISTRYOrdered By: Lab ROP User on 12-21-2024 Glucose [Mass/Vol] 330 mg/dL High 55 - 99 mg/dL FTM C POC Subsection Comment on above: Result Comment: Pricila elbert Meter POC Username TATYANA CASAREZ Invalid Interpretation Code FT POC Subsection Sodium [Moles/Vol] 305879530899 mmol/L Invalid Interpretation Code [facility] POC Subsection Sodium [Moles/Vol] 723090199 mmol/L Invalid Interpretation Code [facility] POC Subsection Glucose [Mass/Vol] 483 mg/dL Invalid Interpretation Code 55 - 99 mg/dL [facility] POC Subsection Comment on above: Result Comment: Pricila elbert Meter POC Username TATYANA CASAREZ Invalid Interpretation Code [facility] POC Subsection Sodium [Moles/Vol] [id number] mmol/L Invalid Interpretation Code [facility] POC Subsection Sodium [Moles/Vol] 044042972337 mmol/L Invalid Interpretation Code [facility] POC Subsection Glucose [Mass/Vol] 361 mg/dL High 55 - 99 mg/dL F[facility] C POC Subsection Comment on above: Result Comment: Pricila elbert Meter POC Username TATYANA CASAREZ Invalid Interpretation Code [facility] POC Subsection Sodium [Moles/Vol] 929431631 mmol/L Invalid Interpretation Code [facility] POC Subsection Sodium [Moles/Vol] 641913315979 mmol/L Invalid Interpretation Code [facility] POC Subsection CHEMISTRYOrdered By: SYSTEM SYSTEM on [...] 12-21-2024 Albumin [Mass/Vol] 2.9 g/dL Low 3.3-5.0 [facility] Comment on above: Performed By: #### 2 [id number] #### [facility] Laboratory [address] [place] [address] Albumin/Globulin (S) [Mass conc ratio] 1.1 Normal 1.1-2.2 [facility] Comment on above: Performed By: #### 2 [id number] #### [facility] [address] [place] [address] ALP [Catalytic activity/Vol] 92 Int._Unit/L Normal 21-98 [facility] Comment on above: Performed By: #### 2 [id number] #### [facility] [address] [place] [address] ALT No additional P-5'-P [Catalytic activity/Vol] 16 Int._Unit/L Normal 6-46 [facility] Comment on above: Performed By: #### 2 [id number] #### [facility] [address] [place] [address] Anion gap [Moles/Vol] 11 mmol/L Normal 6-16 [facility] Comment on above: Performed By: #### 2 [id number] #### [facility] [address] [place] [address] AST [Catalytic activity/Vol] 16 Int._Unit/L Normal 5-43 [facility] Comment on above: Performed By: #### 2 [id number] #### [facility] [address] [place] [address] Bilirubin [Mass/Vol] 0.6 mg/dL Normal 0.0-1.[address] [facility] Comment on above: Performed By: #### 2 [id number] #### [facility] [address] [place] [address] Calcium [Mass/Vol] 8.1 mg/dL Low 8.9-11.1 [facility] Comment on above: Performed By: #### 2 [id number] #### [facility] [address] [place] [address] Chloride [Moles/Vol] 102 mmol/L Normal 101-[address] [facility] Comment on above: Performed By: #### 2 [id number] #### [facility] [address] [place] [address] CO2 [Moles/Vol] 25 mmol/L Normal 21-31 [facility] Comment on above: Performed By: #### 2 [id number] #### [facility] [address] [place] [address] Creatinine [Mass/Vol] 1.7 mg/dL High 0.5-1.3 [facility] Comment on above: Performed By: #### 2 [id number] #### [facility] [address] [place] [address] Globulin (S) [Mass/Vol] 2.7 g/dL Normal 1.4-4.0 [facility] Comment on above: Performed By: #### 2 [id number] #### [facility] [address] [place] [address] Glucose [Mass/Vol] 307 mg/dL High 55-199 [facility] Comment on above: Performed By: #### 2 [id number] #### [facility] [address] [place] [address] Potassium [Moles/Vol] 4.0 mmol/L Normal 3.5-5.3 [facility] Comment on above: Performed By: #### 2 [id number] #### [facility] [address] [place] [address] Protein [Mass/Vol] 5.6 g/dL Low 6.0-7.8 [facility] Comment on above: Performed By: #### 2 [id number] #### [facility] [address] [place] [address] Sodium [Moles/Vol] 134 mmol/L Low 135-145 [facility] Comment on above: Performed By: #### 2 [id number] #### [facility] [address] [place] [address] Urea nitrogen [Mass/Vol] 46 mg/dL High 5-21 [facility] Comment on above: Performed By: #### 2 [id number] #### [facility] [address] [place] [address] Urea nitrogen/Creatinine [Mass ratio] 27 No Units High 10-20 [facility] Comment on above: Performed By: #### 2 [id number] #### [facility] [address] [place] [address] Capillary Glucose POCon 05-0 Glucose [Mass/Vol] 330 mg/dL High 55-99 [facility] Comment on above: Result Comment: Pricila elbert Meter Performed By: #### 2 [id number] #### [facility] [address] [place] [address] Glucose [Mass/Vol] 483 mg/dL Abnormal 55-99 [facility] Comment on above: Result Comment: Pricila elbert Meter Performed By: #### 2 [id number] #### [facility] [address] [place] [address] Glucose [Mass/Vol] 361 mg/dL High 55-99 [facility] Comment on above: Result Comment: Pricila elbert Meter Performed By: #### 2 [id number] #### [facility] [address] [place] [address] Glucose [Mass/Vol] 274 mg/dL High 55-99 [facility] Comment on above: Result Comment: Thelma maxwell RN/ Performed By: #### 2 [id number] #### [facility] [address] [place] [address] Glucose [Mass/Vol] 246 mg/dL High 55-99 [facility] Comment on above: Result Comment: Thelma maxwell RN/ Performed By: #### 2 [id number] #### [facility] [address] [place] [address] Glucose [Mass/Vol] 95 mg/dL Normal 55-99 [facility] Comment on above: Result Comment: Thelma maxwell RN/ Performed By: #### 2 [id number] #### [facility] [address] [place] [address] Glucose [Mass/Vol] 91 mg/dL Normal 55-99 [facility] Comment on above: Performed By: #### 2 [id number] #### [facility] [address] [place] [address] ED Note-Physicianon 12-22-19 25 ED Note-Physician ED Note-Physician Basic Information Time Seen: Greyson ENGLE, Paddy José 12/20/2024 13:32 Chief Complaint pt. c/o L [...] BID, # 20 cap(s), Refills(s) 0, Pharmacy: [facility] #[id number], 183, cm, 06/23/24 13:45:00 EST, Height/Length Dosing, [...] IV Dispos (more content not included)... Normal [facility] Comment on above: Result Comment: Elec tronically Signed By: Paddy Betancourt PA-C\.br\Date and Time Signed: 12/20/24 21:48 EDT\.br\Electronically Co-Signed By: Nicole Myers DO\.br\Date and Time Co-Signed: 12/21/24 07:09 EDT ED Note-Physician ED Note-Physician Basic Information Time Seen: Rudi ENGLE Jesus 12/19/2024 10:25 Chief Complaint c/o left leg [...] day(s), # 9 tab(s), Refills(s) 0, Pharmacy: [facility] #[id number], 183, cm, 12/19/24 10:26:00 EDT, Height/Length Dosing, [...] NS 1000 ml Bolus, 1000 mL, IV [id number] [F], 1000 mL, IV Valium 5 mg Tab, 5 mg, Oral Disposition Plan Patient Discharge Condition Disposition: Discharged home Condition: Improved and stable Counseled: Patient and/or family were counseled to workup, results, treatment plan and follow-up recommendations Discharge Prescription List Prescriptions Robaxin-750 oral tablet, 750 mg= 1 tab(s), Oral, TID Follow-up With When Contact Information Mounika Mendy In 3 days 12/22/[address] [place] [address]- Business (1) Additional Instructions: Patient Education Hyperglycemia Attestation I performed a substantive part of the MDM during the patient???s E/M visit. I personally made or approved the documented management plan and acknowledge its r (more content not included)... Normal [facility] Comment on above: Result Comment: Elec tronically [...] Discharge Instructions Follow up closely with your white metal corrosion proofer. Return to ER if symptoms return or worsen. Do not start tradjenta prescribed by your white metal corrosion proofer until you speak ask him it if is safe with your insulin. Can cause lows together. New Follow Up Appointments after Discharge Follow Up with KAYLA SWEENEY When: Comments: Follow as scheduled in December 2024 Where: [address] [place] [address]- Business (1) Follow Up with Mounika Brooke When: Within 7 to 10 days Comments: Call for followup appointment Where: [address] [place] [address]- [facility] (1) Medications What How Much When Why Instructions Next Dose New losartan (losartan 50 mg Tab) 1 Tablets By Mouth Every day Hypertension Refills: [id number] 12/22 @ 0900am [facility] Prescription (Glucose Kit) See instructions Hyperglycemia Glucose meter. Include autolet, matching test strips, lancets, & alcohol wipes, #100 or as allowed by insurance; DX: E11.9 [id number] Prescription (Pen Needle 31G x 6mm) See instructions Hyperglycemia Refills: 1 Pen Needle 31G x 6mm [id number] Changed insulin regular (HumuLIN R KwikPen (Concentrated) human recombinant 500 units/ mL subcutaneous solution) See instructions Diabetes mellitus with neuropathy inject 40 units under the skin in the morning, 40 in the evening and 20 at bedtime. [id number] 12/21 @ 0800pm Unchanged gabapentin (gabapentin 600 mg Tab) 1 Tablets By Mouth 3 times a day resume Unchanged methocarbamol (Robaxin-750 oral tablet) 1 Tablets By Mouth 3 times a day Duration: 3 Days resume Pharmacy Information [id number]: [address] [facility] [id number] [phone] Test Results CBC BMP WBC: 7.1 E9/L [...] (12/21/24 05:04: (more content not included)... Normal [facility] eGFRon 12-21-2024 eGFR 44 mL/min/1.73 m2 Low >=59 [facility] Comment on above: Performed By: #### 1 [id number] #### [facility] Laboratory [address] [place] [address] BMPon 12-20-2024 Glucose [Mass/Vol] 792 mg/dL Abnormal 55-199 [facility] Comment on above: Result Comment: Crit ical Result [id number] Called to and read back by: PADDY BETANCOURT at: 12/20/2024 15:01:20 by:[email or web address] Critical Result Verified by Repeat Analysis Performed By: #### 2 [id number] #### [facility] [address] [place] [address] Anion gap [Moles/Vol] 16 mmol/L Normal 6-16 [facility] Comment on above: Performed By: #### 2 [id number] #### [facility] [address] [place] [address] Creatinine [Mass/Vol] 1.9 mg/dL High 0.5-1.3 [facility] Comment on above: Performed By: #### 2 [id number] #### [facility] [address] [place] [address] Urea nitrogen [Mass/Vol] 52 mg/dL High 5-21 [facility] Comment on above: Performed By: #### 2 [id number] #### [facility] [address] [place] [address] Urea nitrogen/Creatinine [Mass ratio] 27 No Units High 10-20 [facility] Comment on above: Performed By: #### 2 [id number] #### [facility] [address] [place] [address] Calcium [Mass/Vol] 8.8 mg/dL Low 8.9-11.1 [facility] Comment on above: Performed By: #### 2 [id number] #### [facility] [address] [place] [address] Chloride [Moles/Vol] 88 mmol/L Low 101-[address] [facility] Comment on above: Performed By: #### 2 [id number] #### [facility] [address] [place] [address] CO2 [Moles/Vol] 24 mmol/L Normal 21-31 [facility] Comment on above: Performed By: #### 2 [id number] #### [facility] [address] [place] [address] Potassium [Moles/Vol] 5.0 mmol/L Normal 3.5-5.3 [facility] Comment on above: Performed By: #### 2 [id number] #### [facility] [address] [place] [address] Sodium [Moles/Vol] 123 mmol/L Low 135-145 [facility] Comment on above: Performed By: #### 2 [id number] #### [facility] [address] [place] [address] BOHBon 12-20-2024 Beta HB Qnt 2.86 mmol/L High 0.02-0.27 [facility] Comment on above: Performed By: #### 2 [id number] #### [facility] [address] [place] [address] Blood Gas Art, with Lytes, G hugh, [place] 12-20-2024 a/A Ratio Art 63.60 % Normal >=0.80 [facility] Comment on above: Performed By: #### 4 [id number] #### [facility] [address] [place] [address] AaDO2 Art 36.1 mmHg High 5.0-15.0 [facility] Comment on above: Performed By: #### 4 [id number] #### [facility] [address] [place] [address] Allens Test Positive Normal [facility] Comment on above: Performed By: #### 4 [id number] #### [facility] [address] [place] [address] Base Excess Arterial -2.8 mmol/L Low >=2.8 [facility] Comment on above: Performed By: #### 4 [id number] #### [facility] [address] [place] [address] cCa2+ Art 4.78 mg/dL Normal 4.40-5.30 [facility] Comment on above: Performed By: #### 4 [id number] #### [facility] [address] [place] [address] cCl- Art 92.0 mmol/L Low 101.0-111.0 [facility] Comment on above: Performed By: #### 4 [id number] #### [facility] [address] [place] [address] cGlu Art 749 mg/dL Abnormal 55-99 [facility] Comment on above: Result Comment: Resu lts Called To NICOLE MYERS By ASHLEY TUBBS12/20/2024 14:12:32 EDT And Read Back For Confirmation On _. Performed By: #### 4 [id number] #### [facility] [address] [place] [address] cK+ Art 4.5 mmol/L Normal 3.5-5.3 [facility] Comment on above: Performed By: #### 4 [id number] #### [facility] [address] [place] [address] cLac Art .8 mmol/L Normal .5-2.2 [facility] Comment on above: Performed By: #### 4 [id number] #### [facility] [address] [place] [address] marble cutter operator+ Art 125.0 mmol/L Low 135.0-145.0 [facility] Comment on above: Performed By: #### 4 [id number] #### [facility] [facility] [place] [facility] [address] [place] [address] Drawn by DCC Invalid Interpretation Code [facility] [place] Comment on above: Performed By: #### 4 [id number] #### [facility] [place] [facility] [address] [place] [address] FCOHb Art 2.1 % Normal 1.5-4.9 [facility] [place] Comment on above: Result Comment: Refe rence range Nonsmoker <1.5% Smoker <5.0% Heavy Smoker <9.0% Performed By: #### 4 [id number] #### [facility] [place] [facility] [address] [place] [address] FIO2 BG 21 Invalid Interpretation Code [facility] [place] Comment on above: Performed By: #### 4 [id number] #### [facility] [place] [facility] [address] [place] [address] FO2Hb Art 91.9 % Low 93.0-100.0 [facility] [place] Comment on above: Performed By: #### 4 [id number] #### [facility] [place] [facility] [address] [place] [address] HCO3 (Bld) [Moles/Vol] 22.0 mmol/L Normal 22.0-26.0 [facility] [place] Comment on above: Performed By: #### 4 [id number] #### [facility] [place] [facility] [address] [place] [address] Hemoglobin (Bld) [Mass/Vol] 15.4 g/dL Normal 12.0-17.0 [facility] [place] Comment on above: Performed By: #### 4 [id number] #### [facility] [place] [facility] [address] [place] [address] Oxygen saturation in Blood 93.9 % Low 95.0-100.0 [facility] [place] Comment on above: Performed By: #### 4 [id number] #### [facility] [place] [facility] [address] [place] [address] P CO2 Arterial 40.0 mmHg Normal 35.0-45.0 [facility] Comment on above: Performed By: #### 4 [id number] #### [facility] [place] [facility] [address] [place] [address] P O2 Arterial 63.1 mmHg Low 80.0-100.0 [facility] Comment on above: Performed By: #### 4 [id number] #### [facility] [place] [facility] [address] [place] [address] pH Arterial 7.358 Normal 7.350-7.450 [facility] [place] Comment on above: Performed By: #### 4 [id number] #### [facility] [place] [facility] [address] [place] [address] Sample Site R Radial Normal [facility] [place] Comment on above: Performed By: #### 4 [id number] #### [facility] [place] [facility] [address] [place] [address] Sample Type Arterial Draw Normal [facility] Comment on above: Performed By: #### 4 [id number] #### [facility] [place] [facility] [address] [place] [address] CBC w/ Auto Diffon 5 Basophils/100 WBC (Bld) 1.1 % Normal 0.0-2.0 [facility] [place] Comment on above: Performed By: #### 2 [id number] #### [facility] [place] [facility] [address] [place] [address] Basophils/Leukocytes Auto (Bld) [Pure # fraction] 0.1 E9/L Normal 0.0-0.2 [facility] [place] Comment on above: Performed By: #### 2 [id number] #### [facility] [place] [facility] [address] [place] [address] Eosinophils (Bld) [#/Vol] 0.2 E9/L Normal 0.0-0.5 [facility] [place] Comment on above: Performed By: #### 2 [id number] #### [facility] [place] [facility] [address] [place] [address] Eosinophils/100 WBC (Bld) 3.8 % Normal 0.0-8.0 [facility] [place] Comment on above: Performed By: #### 2 [id number] #### [facility] [place] [facility] [address] [place] [address] Erythrocyte distribution width (RBC) [Ratio] 13.6 % Normal 10.9-14.2 [facility] [place] Comment on above: Performed By: #### 2 [id number] #### [facility] [place] [facility] [address] [place] [address] Hematocrit (Bld) [Volume fraction] 46.1 % Normal 37.7-49.0 [facility] [place] Comment on above: Performed By: #### 2 [id number] #### [facility] [place] [facility] [address] [place] [address] Hemoglobin (Bld) [Mass/Vol] 15.6 g/dL Normal 13.5-17.5 [facility] [place] Comment on above: Performed By: #### 2 [id number] #### [facility] [place] [facility] [address] [place] [address] Lymphocytes (Bld) [#/Vol] 1.3 E9/L Normal 1.0-4.0 [facility] [place] Comment on above: Performed By: #### 2 [id number] #### [facility] [place] [facility] [address] [place] [address] Lymphocytes/100 WBC (Bld) 21.6 % Normal 14.0-50.0 [facility] [place] Comment on above: Performed By: #### 2 [id number] #### [facility] [place] [facility] [address] [place] [address] MCH (RBC) [Entitic mass] 30.9 pg Normal 27.0-34.0 [facility] [place] Comment on above: Performed By: #### 2 [id number] #### [facility] [place] [facility] [address] [place] [address] MCHC (RBC) [Mass/Vol] 33.9 g/dL Normal 31.4-36.0 [facility] [place] Comment on above: Performed By: #### 2 [id number] #### [facility] [place] [facility] [address] [place] [address] MCV (RBC) [Entitic vol] 91.3 fL Normal 80.0-100.0 [facility] [place] Comment on above: Performed By: #### 2 [id number] #### [facility] [place] [facility] [address] [place] [address] Monocytes (Bld) [#/Vol] 0.6 E9/L Normal 0.2-1.0 [facility] [place] Comment on above: Performed By: #### 2 [id number] #### [facility] [place] [facility] [address] [place] [address] Neutrophils (Bld) [#/Vol] 4.0 E9/L Normal 2.0-7.5 [facility] [place] Comment on above: Performed By: #### 2 [id number] #### [facility] [place] [facility] [address] [place] [address] Neutrophils/100 WBC (Bld) 64.6 % Normal 36.0-75.0 [facility] [place] Comment on above: Performed By: #### 2 [id number] #### [facility] [place] [facility] [address] [place] [address] Platelet mean volume (Bld) [Entitic vol] 8.0 fL Normal 6.4-10.8 [facility] [place] Comment on above: Performed By: #### 2 [id number] #### [facility] [place] [facility] [address] [place] [address] Platelets (Bld) [#/Vol] 190.0 E9/L Normal 150.0-500.0 [facility] [place] Comment on above: Performed By: #### 2 [id number] #### [facility] [place] [facility] [address] [place] [address] RBC (Bld) [#/Vol] 5.1 E12/L Normal 4.3-5.9 [facility] [place] Comment on above: Performed By: #### 2 [id number] #### [facility] [place] [facility] [address] [place] [address] WBC corrected for nucl RBC Auto (Bld) [#/Vol] 6.2 E9/L Normal 4.0-11.0 [facility] [place] Comment on above: Performed By: #### 2 [id number] #### [facility] [place] [facility] [address] [place] [address] CHEMISTRYOrdered By: SYSTEM SYSTEM on 12-20-2024 Albumin [...] back by: PADDY BETANCOURT at: 12/20/2024 15:01:20 by:[email or web address] Critical Result Verified by Repeat Analysis Potassium [...] 05 Glucose [Mass/Vol] 180 mg/dL High 55-99 [facility] [place] Comment on above: Result Comment: Thelma BAE Performed By: #### 2 [id number] #### [facility] [place] [facility] [address] [place] [address] Glucose [Mass/Vol] 478 mg/dL Abnormal 55-99 [facility] [place] Comment on above: Result Comment: Thelma BAE Performed By: #### 2 [id number] #### [facility] [place] [facility] [address] [place] [address] Glucose [Mass/Vol] 476 mg/dL Abnormal 55-99 [facility] [place] Comment on above: Result Comment: Thelma BAE Performed By: #### 2 [id number] #### [facility] [place] [facility] [address] [place] [address] Glucose [Mass/Vol] mg/dL Abnormal 55-99 [facility] [place] Comment on above: Result Comment: Thelma BAE Performed By: #### 2 [id number] #### [facility] [place] [facility] [address] [place] [address] Glucose [Mass/Vol] mg/dL Abnormal 55-99 [facility] [place] Comment on above: Result Comment: Thelma maxwell RN/ Performed By: #### 2 [id number] #### [facility] [place] [facility] [address] [place] [address] Glucose [Mass/Vol] mg/dL Abnormal 55-99 [facility] [place] Comment on above: Performed By: #### 2 [id number] #### [facility] [address] [place] [address] ED Clinical Summaryon 2024 ED Clinical Summary ED Clinical Summary [address] [address] ED Clinical Summary Person Information Name: NICOLE LORA Aren/[facility] Age: 64 Years : 1960 Sex: Male Language: Hungarian PCP: Mounika Brooke MD Marital Status: Phone: [phone] Visit Id: Visit Reason: Knee pain-swelling; Hyperglycemia; L KNEE PAIN Speciality: Acuity: 3 Enc Type: Observation Med Service: Medical Arrival: 12/20/2024 13:29:49 Discharge: LOS: 000 05:27 Checkin: 12/20/2024 13:29:49 Checkout: 12/20/2024 18:56:56 Dispo Type: Admitted as IP to this [facility] EVENTS: Event Name Event Status Request [...] 18:35:13 12/20/2024 18:35:13 12/20/2024 18:35:14 ADDRESS: [address] [place] [phone] [facility] DOC NOTES: MEDICAL INFORMATION: Prescriptions Given: Medications [...] of other right toe(s); 6:Hyponatremia; 7:Obesity Normal [facility] ED Patient Education Noteon 12-20-2024 ED Patient Education Note ED Patient Education Note Normal [facility] [place] ED Patient Summaryon 025 ED Patient Summary ED Patient Summary [place] [id number] Patient Discharge Instructions Person Information Name: NICOLE LORA Age: 64 Years Arrival Date: 12/20/2024 13:29:49 Discharge Diagnosis: 1:Hyperglycemia; 2:Leg muscle spasm; 3:Noncompliance with medication regimen; 4:AMY (acute kidney injury); 5:Acquired absence of other right toe(s); 6:Hyponatremia; 7:Obesity Primary Care Physician: Mendy LYMAN, Mounika Lugo Provider Information Primary Provider: Nicole Myers DO [employer] Supervisor:Paddy Betancourt PA-C The exam and treatment you received in the Emergency Department were for an urgent problem and are not intended as complete care. It is important that you follow up with a doctor, nurse practitioner, or physician???s historian research assistant for ongoing care. If your symptoms [...] opioids can be used to help relieve efgwqurc-ec-ztokzt pain and are often prescribed following a [...] be struggling with addiction, tell your health vocational childcare teacher and ask for (more content not included)... Normal [facility] [place] Extra Blueon 12-20-2024 Tube Collected Plasma Yes Invalid Interpretation Code [facility] [place] Comment on above: Performed By: #### 1 [id number] #### [facility] [place] [facility] [address] [place] [id number] Blood GasesOrdered By: Akash Tubbs on 12-20-2024 a/A Ratio Art 63.60 % Normal >=0.80% [facility] Resp Auto SS AaDO2 Art 36.1 mm[Hg] High 5.0 - 15.[address] [facility] Res p Auto SS Allens Test Positive (12/20/24 2:09 PM) Normal [facility] Resp Auto SS Base Excess Arterial -2.8 mmol/L Low >=2.8mmol/L FT Resp Auto SS cCa2+ Art 4.78 mg/dL Normal 4.40 - 5.30 mg/dL [facility] Re sp Auto SS cCl- Art 92.0 mmol/L Low 101.0 - 111.0 mmol/L [facility] Resp Auto SS cGlu Art 749 mg/dL Invalid Interpretation Code 55 - 99 mg/dL [facility] Resp Auto SS Comment on above: Result Comment: Resu lts Called To NICOLE MYERS By ASHLEY TUBBS12/20/2024 14:12:32 EDT And Read Back For Confirmation On _. cK+ Art 4.5 mmol/L Normal 3.5 - 5.3 mmol/L [facility] Res p Auto SS cLac Art 0.8 mmol/L Normal 0.5 - 2.2 mmol/L [facility] Res p Auto SS marble cutter operator+ Art 125.0 mmol/L Low 135.0 - 145.0 mmol/L [facility] Resp Auto SS Drawn by DCC Invalid Interpretation Code [facility] Resp Auto SS FCOHb Art 2.1 % Normal 1.5 - 4.9 % [facility] Resp Auto SS Comment on above: Interpretive Data: R eference range Nonsmoker <1.5% Smoker <5.0% Heavy Smoker <9.0% FO2Hb Art 91.9 % Low 93.0 - 100.0 % [facility] Resp Auto SS HCO3 (Bld) [Moles/Vol] 22.0 mmol/L Normal 22.0 - 26.0 mmol/L [facility] Resp Auto SS Hemoglobin (Bld) [Mass/Vol] 15.4 g/dL Normal 12.0 - 17.0 gm/dL [facility] Resp Auto SS P CO2 Arterial 40.0 mm[Hg] Normal 35.0 - 45.0 mmHg FTM C Resp Auto SS P O2 Arterial 63.1 mm[Hg] Low 80.0 - 100.0 mmHg FTM C Resp Auto SS pH (Bld) 7.358 [pH] Normal 7.350 - 7.450 [facility] Resp Auto SS Sample Site R Radial (12/20/24 2:09 PM) Normal [facility] Resp Auto SS Sample Type Arterial Draw (12/20/24 2:09 PM) Normal [facility] Resp Auto SS Sodium [Moles/Vol] 21 mmol/L Invalid Interpretation Code [facility] Resp Auto SS HEMATOLOGYOrdered By: SYSTEM SYSTEM [...] (S) [Mass conc ratio] 1.1 Normal 1.1-2.2 [facility] [place] Comment on above: Performed By: #### 2 [id number] #### [facility] [place] [facility] [address] [place] [address] Bilirubin.indirect [Mass or moles/Vol] 0.8 mg/dL Normal 0.1-0.9 [facility] [place] Comment on above: Performed By: #### 2 [id number] #### [facility] [place] [facility] [address] [place] [address] Globulin (S) [Mass/Vol] 3.3 g/dL Normal 1.4-4.0 [facility] [place] Comment on above: Performed By: #### 2 [id number] #### [facility] [place] [facility] [address] [place] [address] Albumin [Mass/Vol] 3.5 g/dL Normal 3.3-5.0 [facility] [place] Comment on above: Performed By: #### 2 [id number] #### [facility] [place] [facility] [address] [place] [address] ALP [Catalytic activity/Vol] 156 Int._Unit/L High 21-98 [facility] [place] Comment on above: Performed By: #### 2 [id number] #### [facility] [place] [facility] [address] [place] [address] ALT No additional P-5'-P [Catalytic activity/Vol] 22 Int._Unit/L Normal 6-46 [facility] [place] Comment on above: Performed By: #### 2 [id number] #### [facility] [place] [facility] [address] [place] [address] AST [Catalytic activity/Vol] 18 Int._Unit/L Normal 5-43 [facility] [place] Comment on above: Performed By: #### 2 [id number] #### [facility] [place] [facility] [address] [place] [address] Bilirubin [Mass/Vol] 0.9 mg/dL Normal 0.0-1.[address] [facility] Comment on above: Performed By: #### 2 [id number] #### [facility] [place] [facility] [address] [place] [address] Bilirubin.direct [Mass/Vol] 0.1 mg/dL Normal 0.0-0.4 [facility] [place] Comment on above: Performed By: #### 2 [id number] #### [facility] [place] [facility] [address] [place] [address] Protein [Mass/Vol] 6.8 g/dL Normal 6.0-7.8 [facility] [place] Comment on above: Performed By: #### 2 [id number] #### [facility] [place] [facility] [address] [place] [address] Pre-Arrival Noteon Pre-Arrival Note Pre-Arrival Note Pre-Arrival Summary Name: , [facility] Current Date: 12/20/2024 13:30:15 EDT Gender: Male Date of : Age: 64 Pre-Arrival Type: EMS ETA: 12/20/2024 13:49:00 EDT Primary Care Physician: Presenting Problem: L knee pain, seen yesterday AMA? Pre-Arrival User: Kiersten Theodore RN Referring Source: Location: [place] Completion Date/Time: 12/20/2024 13:20:00 [facility] Emergency Department Pre-Hospital Report Form Vital Signs: Pre-Hospital Report: Treatment in Route: Response to Treatment: Misc. Issues: Normal [facility] UA with Cult Rflxon 12-21-19 25 Bilirubin Ql (U) Negative Normal Negative [facility] Comment on above: Performed By: #### 4 [id number] #### [facility] [place] [facility] [address] [place] [address] Clarity (U) Clear Normal Clear [facility] [place] Comment on above: Performed By: #### 4 [id number] #### [facility] [place] [facility] [address] [place] [address] Color (U) Colorless Abnormal Yellow [facility] [place] Comment on above: Result Comment: Micr oscopic readings are only performed on those samples that meet specific criteria set forth by [facility] [place] [facility]. Performed By: #### 4 [id number] #### [facility] [place] [facility] [address] [place] [address] Glucose Ql (U) 4+ mg/dL Abnormal Negative [facility] Comment on above: Performed By: #### 4 [id number] #### [facility] [place] [facility] [address] [place] [address] Hemoglobin Auto test strip (U) [Mass/Vol] Negative Normal Negative [facility] Comment on above: Performed By: #### 4 [id number] #### [facility] [place] [facility] [address] [place] [address] Ketones Auto test strip Ql (U) Trace Abnormal Negative [facility] [place] Comment on above: Performed By: #### 4 [id number] #### [facility] [place] [address] [place] [address] Leukocyte esterase Auto test strip Ql (U) Negative Normal Negative [facility] [place] Comment on above: Performed By: #### 4 [id number] #### [facility] [place] [facility] [address] [place] [address] Mucus Auto Ql (U) Negative Normal Negative [facility] [place] Comment on above: Performed By: #### 4 [id number] #### [facility] [place] [facility] [address] [place] [address] Nitrite Auto test strip Ql (U) Negative Normal Negative [facility] [place] Comment on above: Performed By: #### 4 [id number] #### [facility] [place] [facility] [address] [place] [address] pH (U) 5.5 [pH] Invalid Interpretation Code 5.0-9.0 [facility] [place] Comment on above: Performed By: #### 4 [id number] #### [facility] [address] [place] [address] Protein Ql (U) 1+ mg/dL Abnormal Negative [facility] Comment on above: Performed By: #### 4 [id number] #### [facility] [address] [place] [address] Specific gravity (U) [Rel density] 1.018 Invalid Interpretation Code 1.005-1.030 [facility] [place] Comment on above: Performed By: #### 4 [id number] #### [facility] [place] [facility] [address] [place] [id number] Urobilinogen (U) [Mass/Vol] Negative Normal Negative [facility] [place] Comment on above: Performed By: #### 4 [id number] #### [facility] [place] [facility] [address] [place] [address] Type of Urine collection method Clean Catch Normal [facility] [place] Comment on above: Performed By: #### 4 [id number] #### [facility] [place] [facility] [address] [place] [address] URINALYSISOrdered By: SYSTEM SYSTEM on 12-20-2024 Bilirubin Ql (U) Negative Normal Negativemg/dL [facility] UA Auto SS Clarity (U) Clear (12/20/24 4:37 PM) Normal Clear [facility] UA Auto SS Color (U) Colorless 1 *ABN* (12/20/24 4:37 PM) Invalid Interpretation Code Yellow [facility] UA Auto SS Comment on above: Interpretive Data: M icroscopic readings are only performed on those samples that meet specific criteria set forth by [facility] [place] [facility]. Glucose Ql (U) 4+ mg/dL Invalid Interpretation Code Negativemg/dL [facility] UA Auto SS Hemoglobin Auto test strip (U) [Mass/Vol] Negative Normal Negativemg/dL [facility] UA Aut o SS Ketones Auto test strip Ql (U) Trace mg/dL Invalid Interpretation Code Negativemg/dL [facility] UA Auto SS Leukocyte esterase Auto test strip Ql (U) Negative Normal NegativeLeu/uL [facility] UA Auto SS Mucus Auto Ql (U) Negative Normal Negativegr aded/LP F [facility] UA Auto SS Nitrite Auto test strip Ql (U) Negative Normal Negativemg/dL [facility] UA Auto SS pH (U) 5.5 *NA* (12/20/24 4:37 PM) Invalid Interpretation Code 5.0 - 9.0 [facility] UA Auto SS Protein Ql (U) 1+ mg/dL Invalid Interpretation Code Negativemg/dL [facility] UA Auto SS Specific gravity (U) [Rel density] 1.018 *NA* (12/20/24 4:37 PM) Invalid Interpretation Code 1.005 - 1.030 [facility] UA Auto SS Urobilinogen (U) [Mass/Vol] Negative Normal Negativemg/dL [facility] UA Auto SS URINALYSISOrdered By: Paddy turner on 12-20-2024 UA Spec Desc Clean Catch (12/20/24 4:37 PM) Normal [facility] UA Auto SS Work Phone: XR Chest [...] Primo Robles MD Transcribed by: KAT Technologist: , Normal [facility] eGFRon 12-20-2024 eGFR 38 mL/min/1.73 m2 Low >=59 [facility] Comment on above: Performed By: #### 1 [id number] #### [facility] Laboratory [address] [place] [address] BMPon 12-19-2024 Anion gap [Moles/Vol] 15 mmol/L Normal 6-16 [facility] Comment on above: Performed By: #### 2 [id number] #### [facility] Laboratory [address] [place] [address] Calcium [Mass/Vol] 8.1 mg/dL Low 8.9-11.1 [facility] Comment on above: Performed By: #### 2 [id number] #### [facility] Laboratory [address] [place] [address] Chloride [Moles/Vol] 80 mmol/L Abnormal 101-[address] [facility] Comment on above: Result Comment: Crit ical Result Verified by Repeat Analysis Critical Result S_CL:[id number] Called to and read back by: TREMAINE LAND at: 12/19/2024 12:00:32 by:VANESSA Performed By: #### 2 [id number] #### [facility] Laboratory [address] [place] [address] CO2 [Moles/Vol] 24 mmol/L Normal 21-31 [facility] Comment on above: Performed By: #### 2 [id number] #### [facility] Laboratory [address] [place] [address] Creatinine [Mass/Vol] 1.9 mg/dL High 0.5-1.3 [facility] Comment on above: Performed By: #### 2 [id number] #### [facility] Laboratory [address] [place] [address] Glucose [Mass/Vol] 1228 mg/dL Abnormal 55-199 [facility] Comment on above: Result Comment: Crit ical Result Verified by Repeat Analysis Result Verified by Dilution Critical Result [id number] Called to and read back by: TREMAINE LAND at: 12/19/2024 12:00:32 by:VANESSA Performed By: #### 2 [id number] #### [facility] Laboratory [address] [place] [address] Potassium [Moles/Vol] 4.7 mmol/L Normal 3.5-5.3 [facility] Comment on above: Performed By: #### 2 [id number] #### [facility] Laboratory [address] [place] [address] Sodium [Moles/Vol] 114 mmol/L Abnormal 135-145 [facility] Comment on above: Result Comment: Crit ical Result Verified by Repeat Analysis Critical Result S_NA of 114 Called to and read back by: TREMAINE LAND at: 12/19/2024 12:00:32 by:VANESSA Performed By: #### 2 [id number] #### [facility] Laboratory [address] [place] [address] Urea nitrogen [Mass/Vol] 54 mg/dL High 5-21 [facility] Comment on above: Performed By: #### 2 [id number] #### [facility] Laboratory [address] [place] [address] Urea nitrogen/Creatinine [Mass ratio] 28 No Units High 10-20 [facility] [place] Comment on above: Performed By: #### 2 [id number] #### [facility] Laboratory [address] [place] [address] BOHBon 12-19-2024 Beta HB Qnt 1.12 mmol/L High 0.02-0.27 [facility] Comment on above: Performed By: #### 2 [id number] #### [facility] Laboratory [address] [place] [address] CBC w/ Auto Diffon 5 Basophils/100 WBC (Bld) 0.8 % Normal 0.0-2.0 [facility] Comment on above: Performed By: #### 2 [id number] #### [facility] Laboratory [address] [place] [address] Basophils/Leukocytes Auto (Bld) [Pure # fraction] 0.1 E9/L Normal 0.0-0.2 [facility] Comment on above: Performed By: #### 2 [id number] #### [facility] Laboratory [address] [place] [address] Eosinophils (Bld) [#/Vol] 0.2 E9/L Normal 0.0-0.5 [facility] Comment on above: Performed By: #### 2 164505 #### [facility] Laboratory [address] [place] [address] Eosinophils/100 WBC (Bld) 3.6 % Normal 0.0-8.0 [facility] Comment on above: Performed By: #### 2 141539 #### [facility] Laboratory [address] [place] [address] Erythrocyte distribution width (RBC) [Ratio] 13.4 % Normal 10.9-14.2 [facility] Comment on above: Performed By: #### 2 [id number] #### [facility] Laboratory [address] [place] [address] Hematocrit (Bld) [Volume fraction] 46.6 % Normal 37.7-49.0 [facility] Comment on above: Performed By: #### 2 [id number] #### [facility] Laboratory [address] [place] [address] Hemoglobin (Bld) [Mass/Vol] 15.3 g/dL Normal 13.5-17.5 [facility] Comment on above: Performed By: #### 2 [id number] #### [facility] Laboratory [address] [place] [address] Lymphocytes (Bld) [#/Vol] 1.6 E9/L Normal 1.0-4.0 [facility] Comment on above: Performed By: #### 2 [id number] #### [facility] Laboratory [address] [place] [address] Lymphocytes/100 WBC (Bld) 24.8 % Normal 14.0-50.0 [facility] Comment on above: Performed By: #### 2 196712 #### [facility] Laboratory [address] [place] [address] MCH (RBC) [Entitic mass] 31.0 pg Normal 27.0-34.0 [facility] Comment on above: Performed By: #### 2 [id number] #### [facility] Laboratory [address] [place] [address] MCHC (RBC) [Mass/Vol] 32.7 g/dL Normal 31.4-36.0 [facility] Comment on above: Performed By: #### 2 [id number] #### [facility] Laboratory [address] [place] [address] MCV (RBC) [Entitic vol] 94.8 fL Normal 80.0-100.0 [facility] Comment on above: Performed By: #### 2 714248 #### [facility] Laboratory [address] [place] [address] Monocytes (Bld) [#/Vol] 0.6 E9/L Normal 0.2-1.0 [facility] Comment on above: Performed By: #### 2 634106 #### [facility] Laboratory [address] [place] [address] Neutrophils (Bld) [#/Vol] 3.9 E9/L Normal 2.0-7.5 [facility] Comment on above: Performed By: #### 2 762353 #### [facility] Laboratory [address] [place] [address] Neutrophils/100 WBC (Bld) 61.6 % Normal 36.0-75.0 [facility] Comment on above: Performed By: #### 2 603285 #### [facility] Laboratory [address] [place] [address] Platelet 219.0 E9/L Normal 150.0-500.0 [facility] Comment on above: Performed By: #### 2 727654 #### [facility] Laboratory [address] [place] [address] Platelet mean volume (Bld) [Entitic vol] 8.5 fL Normal 6.4-10.8 [facility] Comment on above: Performed By: #### 2 945487 #### [facility] Laboratory [address] [place] [address] RBC (Bld) [#/Vol] 4.9 E12/L Normal 4.3-5.9 [facility] Comment on above: Performed By: #### 2 101951 #### [facility] Laboratory [address] [place] [address] WBC corrected for nucl RBC Auto (Bld) [#/Vol] 6.4 E9/L Normal 4.0-11.0 [facility] Comment on above: Performed By: #### 2 076626 #### [facility] Laboratory [address] [place] [address] Capillary Glucose POCon 05-0 1-2025 Glucose [Mass/Vol] mg/dL Abnormal 55-99 [facility] Comment on above: Result Comment: Thelma maxwell RN/MD Performed By: #### 2 [id number] #### [facility] Laboratory [address] [place] [address] ED Clinical Summaryon 2024 ED Clinical Summary ED Clinical Summary [address] [address] ED Clinical Summary Person Information Name: NICOLE LORA Aren/[facility] Age: 64 Years : 1960 Sex: Male Language: Hungarian PCP: Mounika Brooke MD Marital Status: Phone: [phone] Visit Id: Visit Reason: Leg pain-swelling; Weakness [...] 12/19/2024 14:13:49 12/19/2024 14:13:49 12/19/2024 14:13:49 ADDRESS: [address] [id number] PHYS DOC NOTES: MEDICAL INFORMATION: Prescriptions Given: New Medications [id number], [address] [place], [place] [id number], [phone] methocarbamol (Robaxin-750 oral tablet) 1 Tablets By [...] Refills: 4. Misc Prescription (Freestyle Sage 2 [place]) Use daily with sensor. Refills: 0. Misc Prescription (Freestyle Sage 2 Sensors) Apply one q 14 days. Refills: 3. Misc Prescription (Glucometer test strips) Test TID DX E11.40 on insulin. Refills: 11. Misc Prescription (Glucometer) Dispense 1 Glucometer. Refills: 0. Misc Prescription (Insulin Pen [place] 31g x 8 mm) Use up to 4 daily. Refills: 4. (more content not included)... Normal [facility] ED Patient Summaryon 025 ED Patient Summary ED Patient Summary [place] [id number] Patient Discharge Instructions Person Information Name: NICOLE LORA Age: 64 Years Arrival Date: 12/19/2024 10:20:20 Discharge Diagnosis: Hyperglycemia; Muscle cramps Primary Care Physician: Mounika Brooke MD Provider Information Primary Provider: Corky Luo MD [employer] Supervisor:Jesus Grijalva PA-C The exam and treatment you received in the Emergency Department were for an urgent problem and are not intended as complete care. It is important that you follow up with a doctor, nurse practitioner, or physician???s historian research assistant for ongoing care. If your symptoms [...] Follow-up Instructions: With: Address: When: Mounika Brooke [address] [place] [address] Business (1) In 3 days 12/22/2024 In the event that this physician does not participate in your insurance network, please consult with your insurance company to find a nearby participating provider. Patient Education Materials: Hyperglycemia A MESSAGE TO ALL PATIENTS REGARDING OPIOIDS PRESCRIPTION OPIOIDS: WHAT YOU NEED TO KNOW Prescription opioids can be used to help relieve ayyzceur-ms-dqmowx pain and are often prescribed following a [...] be struggling with addiction, tell your health vocational childcare teacher and ask for guidance o (more content not included)... Normal [facility] Extra Blueon 12-19-2024 Tube Collected Plasma Yes Invalid Interpretation Code [facility] Comment on above: Performed By: #### 1 [id number] #### [facility] Laboratory [address] [place] [address] Hep Func Panelon 12-19-2024 Albumin [Mass/Vol] 3.4 g/dL Normal 3.3-5.0 [facility] Comment on above: Performed By: #### 2 [id number] #### [facility] Laboratory [address] [place] [address] Albumin/Globulin (S) [Mass conc ratio] 1.1 Normal 1.1-2.2 [facility] Comment on above: Performed By: #### 2 [id number] #### [facility] Laboratory [address] [place] [address] ALP [Catalytic activity/Vol] 208 Int._Unit/L High 21-98 [facility] Comment on above: Performed By: #### 2 201514 #### [facility] Laboratory [address] [place] [address] ALT No additional P-5'-P [Catalytic activity/Vol] 25 Int._Unit/L Normal 6-46 [facility] Comment on above: Performed By: #### 2 [id number] #### [facility] Laboratory [address] [place] [address] AST [Catalytic activity/Vol] 26 Int._Unit/L Normal 5-43 [facility] Comment on above: Performed By: #### 2 903754 #### [facility] Laboratory [address] [place] [address] Bilirubin [Mass/Vol] 0.9 mg/dL Normal 0.0-1.[address] [facility] Comment on above: Performed By: #### 2 065530 #### [facility] Laboratory [address] [place] [address] Bilirubin.direct [Mass/Vol] 0.1 mg/dL Normal 0.0-0.4 [facility] Comment on above: Performed By: #### 2 629389 #### [facility] Laboratory [address] [place] [address] Bilirubin.indirect [Mass or moles/Vol] 0.8 mg/dL Normal 0.1-0.9 [facility] Comment on above: Performed By: #### 2 [id number] #### [facility] Laboratory [address] [place] [address] Globulin (S) [Mass/Vol] 3.1 g/dL Normal 1.4-4.0 [facility] Comment on above: Performed By: #### 2 399675 #### [facility] Laboratory [address] [place] [address] Protein [Mass/Vol] 6.5 g/dL Normal 6.0-7.8 [facility] Comment on above: Performed By: #### 2 602927 #### [facility] Laboratory [address] [place] [address] XR Chest Single Viewon 12-19 XR Chest [...] Broussard DO Transcribed by: KAT Technologist: ECTOR, Normal [facility] eGFRon 12-19-2024 eGFR 38 mL/min/1.73 m2 Low >=59 [facility] Comment on above: Performed By: #### 1 [id number] #### [facility] Laboratory [address] [place] [address] ED Note-Physicianon 12-17-19 ED Note-Physician ED Note-Physician [...] day(s), # 20 cap(s), Refills(s) 0, [id number], 183, cm, 12/02/24 12:47:0 (more content not included)... Normal [facility] Comment on above: Result Comment: Elec tronically Signed By: Paddy Betancourt PA-C\.br\Date and Time Signed: 12/02/24 15:27 EDT\.br\Electronically Co-Signed By: Nicole Myers DO\.samir\Date and Time Co-Signed: 12/16/24 07:10 EDT BMPon 12-02-2024 Anion gap [Moles/Vol] 16 mmol/L Normal 6-16 [facility] Comment on above: Performed By: #### 2 [id number] #### [facility] Laboratory [address] [place] [address] Calcium [Mass/Vol] 9.0 mg/dL Normal 8.9-11.1 [facility] Comment on above: Performed By: #### 2 412147 #### [facility] Laboratory [address] [place] [address] Chloride [Moles/Vol] 87 mmol/L Low 101-[address] [facility] Comment on above: Performed By: #### 2 741142 #### [facility] Laboratory [address] [place] [address] CO2 [Moles/Vol] 25 mmol/L Normal 21-31 [facility] Comment on above: Performed By: #### 2 115283 #### [facility] Laboratory [address] [place] [address] Creatinine [Mass/Vol] 1.6 mg/dL High 0.5-1.3 [facility] Comment on above: Performed By: #### 2 426843 #### [facility] Laboratory [address] [place] [address] Glucose [Mass/Vol] 751 mg/dL Abnormal 55-199 [facility] Comment on above: Result Comment: Crit ical Result Verified by Repeat Analysis Critical Result S_GLU:[id number] Called to and read back by: TREMAINE LAND at: 12/02/2024 13:48:34 by:WOODY Performed By: #### 2 [id number] #### [facility] Laboratory [address] [place] [address] Potassium [Moles/Vol] 4.4 mmol/L Normal 3.5-5.3 [facility] Comment on above: Performed By: #### 2 624400 #### [facility] Laboratory [address] [place] [address] Sodium [Moles/Vol] 124 mmol/L Low 135-145 [facility] Comment on above: Performed By: #### 2 [id number] #### [facility] Laboratory [address] [place] [address] Urea nitrogen [Mass/Vol] 40 mg/dL High 5-21 [facility] Comment on above: Performed By: #### 2 979861 #### [facility] Laboratory [address] [place] [address] Urea nitrogen/Creatinine [Mass ratio] 25 No Units High 10-20 [facility] Comment on above: Performed By: #### 2 [id number] #### [facility] Laboratory [address] [place] [address] CBC w/ Auto Diffon 5 Basophils/100 WBC (Bld) 0.6 % Normal 0.0-2.0 [facility] Comment on above: Performed By: #### 2 755982 #### [facility] Laboratory [address] [place] [address] Basophils/Leukocytes Auto (Bld) [Pure # fraction] 0.0 E9/L Normal 0.0-0.2 [facility] Comment on above: Performed By: #### 2 599126 #### [facility] Laboratory [address] [place] [address] Eosinophils (Bld) [#/Vol] 0.2 E9/L Normal 0.0-0.5 [facility] Comment on above: Performed By: #### 2 [id number] #### [facility] Laboratory [address] [place] [address] Eosinophils/100 WBC (Bld) 2.8 % Normal 0.0-8.0 [facility] Comment on above: Performed By: #### 2 067244 #### [facility] Laboratory [address] [place] [address] Erythrocyte distribution width (RBC) [Ratio] 13.4 % Normal 10.9-14.2 [facility] Comment on above: Performed By: #### 2 123386 #### [facility] Laboratory [address] [place] [address] Hematocrit (Bld) [Volume fraction] 48.9 % Normal 37.7-49.0 [facility] Comment on above: Performed By: #### 2 213384 #### [facility] Laboratory [address] [place] [address] Hemoglobin (Bld) [Mass/Vol] 16.6 g/dL Normal 13.5-17.5 [facility] Comment on above: Performed By: #### 2 558391 #### [facility] Laboratory [address] [place] [address] Lymphocytes (Bld) [#/Vol] 1.2 E9/L Normal 1.0-4.0 [facility] Comment on above: Performed By: #### 2 186265 #### [facility] Laboratory [address] [place] [address] Lymphocytes/100 WBC (Bld) 20.6 % Normal 14.0-50.0 [facility] Comment on above: Performed By: #### 2 943274 #### [facility] Laboratory [address] [place] [address] MCH (RBC) [Entitic mass] 31.4 pg Normal 27.0-34.0 [facility] Comment on above: Performed By: #### 2 [id number] #### [facility] Laboratory [address] [place] [address] MCHC (RBC) [Mass/Vol] 33.9 g/dL Normal 31.4-36.0 [facility] Comment on above: Performed By: #### 2 [id number] #### [facility] Laboratory [address] [place] [address] MCV (RBC) [Entitic vol] 92.6 fL Normal 80.0-100.0 [facility] Comment on above: Performed By: #### 2 [id number] #### [facility] Laboratory [address] [place] [address] Monocytes (Bld) [#/Vol] 0.4 E9/L Normal 0.2-1.0 [facility] Comment on above: Performed By: #### 2 403956 #### [facility] Laboratory [address] [place] [address] Neutrophils (Bld) [#/Vol] 4.1 E9/L Normal 2.0-7.5 [facility] Comment on above: Performed By: #### 2 892922 #### [facility] Laboratory [address] [place] [address] Neutrophils/100 WBC (Bld) 69.1 % Normal 36.0-75.0 [facility] Comment on above: Performed By: #### 2 [id number] #### [facility] Laboratory [address] [place] [address] Platelet mean volume (Bld) [Entitic vol] 7.5 fL Normal 6.4-10.8 [facility] Comment on above: Performed By: #### 2 [id number] #### [facility] Laboratory [address] [place] [address] Platelets (Bld) [#/Vol] 268.0 E9/L Normal 150.0-500.0 [facility] Comment on above: Performed By: #### 2 [id number] #### [facility] [address] [place] [address] RBC (Bld) [#/Vol] 5.3 E12/L Normal 4.3-5.9 [facility] Comment on above: Performed By: #### 2 [id number] #### [facility] Laboratory [address] [place] [id number] WBC corrected for nucl RBC Auto (Bld) [#/Vol] 6.0 E9/L Normal 4.0-11.0 [facility] Comment on above: Performed By: #### 2 [id number] #### [facility] Laboratory [address] [place] [address] CHEMISTRYOrdered By: SYSTEM SYSTEM on 12-02-2024 Anion [...] 2024 ED Clinical Summary ED Clinical Summary [place] [id number] ED Clinical Summary Person Information Name: NICOLE LORA/[facility] Age: 64 Years : 1960 Sex: Male Language: Hungarian PCP: Mounika Brooke MD Marital Status: Phone: [phone] Visit Id: Visit Reason: Nausea; Dehydration; PT [...] 15:24:12 12/02/2024 15:24:12 12/02/2024 15:24:12 ADDRESS: [address] [place] [phone] PHYS DOC NOTES: MEDICAL INFORMATION: Prescriptions Given: New Medications [facility] #[id number], [address] [place] [phone], [phone] cefdinir (cefdinir 300 mg Cap) 1 Capsules By Mouth every 12 hours for 10 Days. Refills: 0. Medications to Continue Taking That Have Changed [facility] #[id number], [address] [place] [phone], [phone] START: doxycycline (doxycycline hyclate 100 mg Cap) [...] (Freestyle Li (more content not included)... Normal [facility] ED Note-Nursingon 12-02-2024 ED Note-Nursing ED Note-Nursing pt. leaves AMA at this time. paper signed. Normal [facility] ED Patient Summaryon 025 ED Patient Summary ED Patient Summary [place] [id number] Patient Discharge Instructions Person Information Name: NICOLE LORA Age: 64 Years Arrival Date: 12/02/2024 12:35:03 Discharge Diagnosis: Bronchitis; Hyperglycemia; Left against medical advice Primary Care Physician: Mounika Brooke MD Provider Information Primary Provider: Nicole Myers DO [employer] Supervisor:Paddy Betancourt PA-C The exam and treatment you received in the Emergency Department were for an urgent problem and are not intended as complete care. It is important that you follow up with a doctor, nurse practitioner, or physician???s historian research assistant for ongoing care. If your symptoms [...] Address: When: [place] [address] [place] [address] Business (1) In 3 days 12/05/2024 Comments: Call Dr for diagnosis based follow up In the event that this physician does not participate in your insurance network, please consult with your insurance company to find a nearby participating provider. Patient Education Materials: Acute Bronchitis, Adult; Type 2 Diabetes Mellitus, Self-Care, Adult, Bmef-fi-Stxu; Hyperglycemia A MESSAGE TO ALL PATIENTS REGARDING OPIOIDS PRESCRIPTION OPIOIDS: WHAT YOU NEED TO KNOW Prescription opioids can be used to help relieve ftphiduj-fc-cgujzb pain and are often prescribed following a [...] to cj (more content not included)... Normal [facility] Extra Blueon 12-02-2024 Tube Collected Plasma Yes Invalid Interpretation Code [facility] Comment on above: Performed By: #### 1 [id number] #### [facility] Laboratory [address] [place] [address] HEMATOLOGYOrdered By: SYSTEM SYSTEM on 12-02-2024 Basophils/100 [...] DO Transcribed by: KAT Technologist: PORSHA Normal [facility] eGFRon 12-02-2024 eGFR 47 mL/min/1.73 m2 Low >=59 [facility] Comment on above: Performed By: #### 1 [id number] #### [facility] Laboratory [address] [place] [address] Glucose (Bld) [Mass/Vol]on 0 09-04-2024 Glucose Blood, POC 406 mg/dL [facility] Laboratory - Hematology and Cell countson 09-04-2024 HbA1c (Bld) [Mass fraction] 12.9 % [facility] No Panel Informationon 09-04 [facility] Left eye Ophthalmologic jemma tmenton 07-22-2024 [facility] Radiology Study observation (narrative) [facility] Optical coherence tomography study reporton 07-22-2024 [facility] Left Eye Quality was good. Scan locations included subfoveal, juxtafoveal, extrafoveal, temporal. Progression has been stable. Notes Proliferative diabetic retinopathy of left eye [facility], [facility] Radiology Study observation (narrative) [facility] Glucose (Bld) [Mass/Vol]Orde red By: Amanda Cesar on 07-15-2024 Glucose Blood, POC 243 mg/dL [facility] ED Clinical Summaryon 2023 ED Clinical Summary ED Clinical Summary [place] [id number] ED Clinical Summary Person Information Name: NICOLE LORA/[facility] Age: 64 Years : 1960 Sex: Male Language: Hungarian PCP: Mounika Brooke MD Marital Status: Phone: [phone] Visit Id: Visit Reason: Arm pain-swelling; RIGHT [...] 07/09/2024 16:21:24 07/09/2024 16:21:24 07/09/2024 16:21:24 ADDRESS: [address] [phone] [facility] DOC NOTES: MEDICAL INFORMATION: Prescriptions Given: New Medications [facility] #[id number], [address], [place] [phone], [phone] acetaminophen-oxycodo ne (Percocet 5 mg-325 mg oral [...] times a day. Refills: 4. Misc Prescription (Freeyle Sage 2 [place]) Use daily with sensor. Refills: 0. Misc Prescription (Freestyle Sage 2 Sensors) Apply one q 14 days. Refills: 3. Misc Prescription (Glucometer test strips) Test TID DX E11.40 on insulin. Refills: 11. Misc Prescription (Glucometer) Dispense 1 Glucometer. Refills: 0. Misc Prescription (Insulin Pen [place] 31g x 8 mm) Use up to [...] hours a (more content not included)... Normal [facility] ED Note-Physicianon 07-09-20 ED Note-Physician ED Note-Physician [...] for 3 day(s), 10 tab(s), Refill(s) 0, [facility] #[id number], 183, cm, 07/09/24 14:44:00 EST, Height/Length Dosing, [...] Quiñones In 3 days 07/12/2024 EST [address] [place] [address]- Business (1) Additional Instructions: Patient Education Tendinitis Attestation [...] made to ensure accuracy, however, inadvertently computerized marine farmer mistakes may be present. Appropriate healthcare PPE [...] disorder, severe (more content not included)... Normal [facility] Comment on above: Result Comment: Elec tronically Signed By: Jesus Grijalva PA-C\.br\Date and Time Signed: 07/09/24 16:16 EST\.br\Electronically Co-Signed By: Nicole Myers DO\.br\Date and Time Co-Signed: 07/09/24 18:49 EST ED Patient Summaryon 024 ED Patient Summary ED Patient Summary [place] [id number] Patient Discharge Instructions Person Information Name: NICOLE LORA Age: 64 Years Arrival Date: 07/09/2024 14:35:34 Discharge Diagnosis: Left shoulder pain; Tendinitis Primary Care Physician: Mounika Brooke MD Provider Information Primary Provider: Nicole Myers DO [employer] Supervisor:Jesus Grijalva PA-C The exam and treatment you received in the Emergency Department were for an urgent problem and are not intended as complete care. It is important that you follow up with a doctor, nurse practitioner, or physician???s historian research assistant for ongoing care. If your symptoms become worse or you do not improve as expected and you are unable to reach your usual health care provider, you should return to the Emergency Department. We are available 24 hours a day. NICOLE LORA has been given the following list of patient education materials, prescriptions and follow-up instructions: Follow-up Instructions: With: Address: When: [place] [address] Business (1) In 3 days 07/12/2024 In the event that this physician does not participate in your insurance network, please consult with your insurance company to find a nearby participating provider. Patient Education Materials: Tendinitis A MESSAGE TO ALL PATIENTS REGARDING OPIOIDS PRESCRIPTION OPIOIDS: WHAT YOU NEED TO KNOW Prescription opioids can be used to help relieve mmnuqedc-he-uiicxb pain and are often prescribed following a [...] be struggling with addiction, tell your health vocational childcare teacher and ask for ernst (more content not included)... Normal [facility] XR Shoulder Complete Righton 07-09-2024 XR Shoulder [...] mGy = na DAP = na Normal [facility] ED Clinical Summaryon 2023 ED Clinical Summary ED Clinical Summary [place] [id number] ED Clinical Summary Person Information Name: NICOLE LORA/[facility] Age: 64 Years : 1960 Sex: Male Language: Hungarian PCP: Mounika Brooke MD Marital Status: Phone: [phone] Visit Id: Visit Reason: Rib/trunk pain-swelling; RIB [...] 14:01:17 06/23/2024 14:01:17 06/23/2024 14:01:17 ADDRESS: [address] [place] [phone] PHYS DOC NOTES: MEDICAL INFORMATION: Prescriptions Given: New Medications [id number], [address] [place] [phone], [phone] acetaminophen-oxycodo ne (acetaminophen-oxycod one 325 mg-5 mg Tab) 1 Tablets By Mouth every 6 hours as needed for pain for 3 Days. Refills: 0. Medications to Continue Taking That Have Changed [facility] #[id number], [address], [place] [phone], [phone] START: doxycycline (doxycycline hyclate 100 mg Cap) [...] Refills: 4. Misc Prescription (Freestyle Sage 2 [place]) Use daily with sensor. Refills: 0. Misc Prescription (Freestyle Sage 2 Sensors) Apply one q 14 days. Refills: 3. Misc Prescription (Glucometer test strips) Test TID DX E11.40 on insulin. Refills: 11. Misc Prescription (Glucometer) Dispense 1 Glucometer. Refills: 0. Misc Prescription (Insulin Pen [place] 31g x 8 mm) Use up to [...] INFORMATION: Inst (more content not included)... Normal [facility] ED Note-Physicianon 06-23-20 ED Note-Physician ED Note-Physician Basic Information Time Seen: Greyson ENGLE, Paddy Nunez. 06/23/2024 13:39 Chief Complaint pt has rib [...] Number and Complexity of Problems Differential Diagnosis: [facility] Data External documents reviewed: [] My EKG [...] for 3 day(s), 12 tab(s), Refill(s) 0, [facility] #[id number], 183, cm, 06/23/24 13:45:00 EST, Height/Length Dosing, 143, kg, 06/23/24 13:45:00 EST, Weight Dosing doxycycline, 100 mg = 1 cap(s), Oral, BID, # 20 cap(s), Refills(s) 0, Pharmacy: [facility] #[id number], 183, cm, 06/23/24 13:45:00 EST, Height/Length Dosing, 143, kg, 06/23/24 13:45:00 EST, Weight Dosing Disposition Plan Patient Discharge Condition Stable Discharge Disposition To home Discharge Prescription List Prescriptions acetaminophen-oxycodo ne 325 mg-5 mg Tab, 1 tab(s), Oral, q6hr, PRN doxycycline hyclate 100 mg Cap, 100 mg= 1 cap(s), Oral, BID Follow-up With When Contact Information Mounika Logangles In 3 days 06/26/[address] [place] [address]- Business (1) Additional Instructions: Call Dr for diagnosis based follow up Patient Education Community-Acquired Pneumonia, Adult, Dzxw-gp-Vtyl Rib Contusion Attestation Patient seen and evaluated by the physician historian research assistant. Attending physician was present in the emergency department and supervised care. This visit was performed by both the physician and an APC. I performed all aspects of the MDM as documented. This report was transcribed using voice recognition software. Every effort was made to ensure accuracy, however, inadvertently computerized marine farmer mistakes may be present. Appropriate healthcare PPE was used in evaluating this patient. The patient was placed in a mask. The healthcare provider was wearing mask, gloves, and utilizing proper hand hygiene. All equipment was properly cleansed. I performed a substantive part of the MDM during (more content not included)... Normal [facility] Comment on above: Result Comment: Elec tronically Signed By: Greyson ENGLE, Paddy José\.br\Date and Time Signed: 06/23/24 14:07 EST\.br\Electronically Co-Signed By: Alejandro Silva M.D.\.br\Date and Time Co-Signed: 06/23/24 14:26 EST ED Patient Summaryon 024 ED Patient Summary ED Patient Summary [address] [address] Patient Discharge Instructions Person Information Name: NICOLE LORA Age: 64 Years Arrival Date: 06/23/2024 13:36:38 Discharge Diagnosis: Contusion of rib on left side; Pneumonia Primary Care Physician: Mounika Brooke MD Provider Information Primary Provider: Alejandro Silva M.D. [employer] Supervisor:None The exam and treatment you received in the Emergency Department were for an urgent problem and are not intended as complete care. It is important that you follow up with a doctor, nurse practitioner, or physician???s historian research assistant for ongoing care. If your symptoms [...] With: Address: When: Mounika Brooke [address] [place] [place] [address] Business (1) In 3 days 06/26/2024 Comments: Call Dr for diagnosis based follow up In the event that this physician does not participate in your insurance network, please consult with your insurance company to find a nearby participating provider. Patient Education Materials: Community-Acquired Pneumonia, Adult, Qkmq-nn-Jjqm; Rib Contusion A MESSAGE TO ALL PATIENTS REGARDING OPIOIDS PRESCRIPTION OPIOIDS: WHAT YOU NEED TO KNOW Prescription opioids can be used to help relieve vmplxlaf-dy-hhtjii pain and are often prescribed following a [...] ??? If (more content not included)... Normal [facility] HEMOGLOBIN A1con 06-22-2024 HbA1c (Bld) [Mass fraction] % High <5.7 [facility] Comment on above: Order Comment: FASTI NG:UNKNOWN [...] children. Performed By: #### 4 96 #### [facility] [address], [address] [place], [place] [id number] Block Chopper Hand: Anson Henley MD HbA1c (Bld) [Mass fraction]o n 06-22-2024 Interpretation and review of laboratory results Abnormal [facility] FASTING:UNKNOWN FASTING: UNKNOWN [facility] Organization Information Site ID: QPT Name: [facility] Address: [address] [place] [address], [address] [place], [place] [phone] Director: Anson Henley MD [facility] Laboratory - Hematology and Cell countson 06-22-2024 HbA1c (Bld) [Mass fraction] High [facility] Comment on above: For someone without known [...] diabetes for children. XR Chest 2 Viewson XR Chest 2 Views Exam Date/Time: 06/21/2024 [...] mGy = na DAP = na Normal [facility] Left eye [facility] Radiology Study observation (narrative) [facility] Optical coherence tomography study reporton 05-22-2024 [facility] Right Eye Quality was good. Left Eye Quality was good. Scan locations included subfoveal, juxtafoveal, extrafoveal. Progression has been stable. Findings include abnormal foveal contour, cystoid macular edema. Notes Neovascularization of the disc (NVD) OS [facility] 1928[facility] Radiology Study observation (narrative) [facility] Left eye [facility]hthalmologic [facility] 04-23-2024 [facility] Radiology Study observation (narrative) [facility] Optical coherence tomography study reporton 04-15-2024 Right Eye Quality was good. Scan locations included subfoveal, juxtafoveal, extrafoveal. Progression has no prior data. Findings include abnormal foveal contour. Left Eye Quality was good. Scan locations included subfoveal, juxtafoveal, extrafoveal. Progression has no prior data. Findings include abnormal foveal contour, cystoid macular edema. Notes Pdr os Mod bgdr od [facility] Radiology Study observation (narrative) [facility] BMPon 03-11-2024 Anion gap [Moles/Vol] 13 mmol/L Normal 6-16 [facility] Comment on above: Performed By: #### 2 [id number] #### [facility] Laboratory [address] [place] [address] Calcium [Mass/Vol] 8.6 mg/dL Low 8.9-11.1 [facility] Comment on above: Performed By: #### 2 [id number] #### [facility] Laboratory [address] [place] [address] Chloride [Moles/Vol] 100 mmol/L Low 101-[address] [facility] Comment on above: Performed By: #### 2 [id number] #### [facility] Laboratory [address] [place] [address] CO2 [Moles/Vol] 26 mmol/L Normal 21-31 [facility] Comment on above: Performed By: #### 2 [id number] #### [facility] Laboratory [address] [place] [address] Creatinine [Mass/Vol] 1.5 mg/dL High 0.5-1.3 [facility] Comment on above: Performed By: #### 2 [id number] #### [facility] Laboratory [address] [place] [address] Glucose [Mass/Vol] 330 mg/dL High 55-199 [facility] Comment on above: Performed By: #### 2 [id number] #### [facility] Laboratory [address] [place] [address] Potassium [Moles/Vol] 4.8 mmol/L Normal 3.5-5.3 [facility] Comment on above: Performed By: #### 2 [id number] #### [facility] Laboratory [address] [place] [address] Sodium [Moles/Vol] 134 mmol/L Low 135-145 [facility] Comment on above: Performed By: #### 2 [id number] #### [facility] Laboratory [address] [place] [address] Urea nitrogen [Mass/Vol] 29 mg/dL High 5-21 [facility] Comment on above: Performed By: #### 2 [id number] #### [facility] Laboratory [address] [place] [address] Urea nitrogen/Creatinine [Mass ratio] 19 No Units Normal 10- [facility] Comment on above: Performed By: #### 2 [id number] #### [facility] Laboratory [address] [place] [address] CHEMISTRYOrdered By: SYSTEM SYSTEM on 03-11-2024 Anion [...] 03-11-2024 eGFR 51 mL/min/1.73 m2 Low >=59 [facility] Comment on above: Order Comment: Order added by Discern Expert. Performed By: #### 1 [id number] #### [facility] Laboratory [address] [place] [address] Ambulatory Visit Summaryon 0 02-28-2024 Ambulatory Visit Summary Normal [facility] Patient Educationon 02-28-20 24 Patient Education Normal [facility] Urology Office/Clinic Noteon 02-28-2024 Urology Office/Clinic Note Normal [facility] Comment on above: Result Comment: Elec tronically Signed By: Taz THOMAS MD\.br\Date and Time Signed: 02/28/24 08:10 EDT\.br\Electronically Co-Signed By: Basia Claire\.br\Date and Time Co-Signed: 02/28/24 08:05 EDT Ambulatory Visit Summaryon 0 02-15-2024 Ambulatory Visit Summary Normal [facility] Patient Educationon 02-11-20 Patient Education Normal [facility] Urology Office/Clinic Noteon 02-11-2024 Urology Office/Clinic Note Normal [facility] Comment on above: Result Comment: Elec tronically Signed By: BRYAN Bahena APRN, [place] X\.br\Date and Time Signed: 02/11/24 23:10 EDT Ambulatory Visit Summaryon 0 02-09-2024 Ambulatory Visit Summary Normal [address], [address] [place] [address]- \.br\ Monday 10:45 AM EDT \.br\ With: Juany DPM, Sukh R\.br\ Where: [facility]\.br\ Medications\.br\ What How Much When Why Instructions\.br\ Unchanged acetaminophen-hyd rocodone ([place] 325 mg-5 mg oral tablet) See instructions [...] day\.br\ Unchanged Misc Prescription (Freestyle Sage 2 [place]) See instructions Use daily with sensor \.br\ Unchanged Misc Prescription (Freestyle Sage 2 Sensors) See instructions Apply one q 14 days \.br\ Unchanged Misc Prescription (Glucometer test strips) See instructions Test TID DX E11.40 on insulin \.br\ Unchanged Misc Prescription (Glucometer) See instructions Diabetes mellitus with neuropathy Dispense 1 Glucometer \.br\ Unchanged Misc Prescription (Insulin Pen [place] 31g x 8 mm) See instructions Use [...] for choosing us for your care.\.br\ \.br\ [facility] Consent for Procedure/Surger yon 02-05-2024 Consent for Procedure/Surgery [id number] .00TIFF Normal [facility] Consent for Treatmenton 01-19 Consent for Treatment [id number] .00TIFF Normal [facility] Inpatient Patient Summaryon 02-05-2024 Inpatient Patient Summary Normal [facility] IntraOperative Documentson 0 02-05-2024 IntraOperative Documents [id number] .00TIFF Normal [facility] Main OR Intraoperative Recor don 02-05-2024 Main OR Intraoperative Record Normal [facility] Main OR Preoperative Recordo n 02-05-2024 Main OR Preoperative Record Normal [facility] Operative Reporton Operative Report Normal [facility] Comment on above: Result Comment: Elec tronically Signed By: MARTHA LYMAN, aTz Abraham\.br\Date and Time Signed: 02/05/24 13:27 EDT Outpatient Surgery Discharge Instructionon 02-05-2024 Outpatient Surgery Discharge Instruction [id number] .00TIFF Normal [facility] Outpatient Surgery Discharge Instruction Normal [facility] Patient Educationon 02-05-20 Patient Education Normal [facility] Insurance Correspondenceon 0 02-01-2024 Insurance Correspondence [id number]# 1.00TIFF [facility] Multi-Wound Charton 02-01-20 Multi-Wound Chart [id number]# 1.00TIFF [facility] Nursing Note - Woundon 01-31 Nursing Note - Wound [id number]. [id number]# 1.00TIFF [facility] [place] Consent for Treatmenton 01-19 Consent for Treatment [id number]#1 .00TIFF [facility] [place] Nursing Assessment - Woundon 01-31-2024 Nursing Assessment - Wound [id number]# 1.00TIFF [facility] [place] Physician Orderon 01-31-2024 Physician Order [id number]# 1.00TIFF [facility] [place] Prescriptions/Work Noteson 0 01-31-2024 Prescriptions/Work Notes [id number]# 1.00TIFF [facility] [place] Procedure - Woundon 01-31-20 Procedure - Wound [id number]. [id number]# 1.00TIFF [facility] [place] Progress Note - Woundon 01-19 Progress Note - Wound 159.140.124. [id number]# 1.00TIFF [facility] Insurance Correspondenceon 0 01-26-2024 Insurance Correspondence [id number]#1 .00TIFF [facility] [place] Nursing Note - Woundon 01-23 Nursing Note - Wound [id number]. 06 [id number]# 1.00TIFF [facility] [place] Physician Orderon 01-24-2024 Physician Order [id number]. [id number]# 1.00TIFF [facility] [place] Procedure - Woundon 01-24-20 24 Procedure - Wound [id number]. 6 [id number]# 1.00TIFF [facility] [place] Progress Note - Woundon Progress Note - Wound [id number]# 1.00TIFF [facility] [place] Consent for Procedure/Surger yon 01-23-2024 Consent for Procedure/Surgery [id number]# 1.00TIFF [facility] [place] Consent for Procedure/Surgery [id number]# 1.00TIFF [facility] [place] Consent for Treatmenton Consent for Treatment [id number]#1 .00TIFF [facility] [place] Multi-Wound Charton 01-23-20 Multi-Wound Chart [id number] 6 [id number]# 1.00TIFF [facility] [place] Nursing Assessment - Woundon 01-23-2024 Nursing Assessment - Wound [id number]# 1.00TIFF [facility] [place] ED Note-Physicianon 01-16-20 ED Note-Physician [facility] [place] Comment on above: Result Comment: Elec tronically Signed By: Kaley Phan PA-C\.br\Date and Time Signed: 01/15/24 17:05 EDT\.br\Electronically Co-Signed By: Nicole Myers DO\.br\Date and Time Co-Signed: 01/16/24 09:03 EDT Consent for Treatmenton 12-20 Consent for Treatment [id number]#1 .00TIFF [facility] Discharge Instructionson Discharge Instructions [id number]#1 .00TIFF [facility] [place] ED Clinical Summaryon 2023 ED [facility] Education Note[facility] 01-15-2024 ED Patient Education Note [facility] ED Patient Summaryon 024 ED Patient Summary [facility] Ambulatory Visit Summaryon 01-12-2024 Ambulatory Visit Summary [facility] [place] Consent for Procedure/Surger yon 01-02-2024 Consent for Procedure/Surgery [id number]# 1.00TIFF [facility] [place] Consent for Treatmenton 12-19 Consent for Treatment [id number]#1 .00TIFF [facility] [place] Multi-Wound Charton 01-02-20 Multi-Wound Chart [id number] 5 [id number]# 1.00TIFF [facility] [place] Nursing Assessment - Woundon 01-02-2024 Nursing Assessment - Wound [id number]. [id number]# 1.00TIFF [facility] [place] Nursing Note - Woundon 01-01 Nursing Note - Wound [id number] 05 [id number]# 1.00TIFF [facility] [place] Physician Orderon 01-02-2024 Physician Order [id number]# 1.00TIFF [facility] [place] Procedure - Woundon 01-02-20 Procedure - Wound [id number] 5 [id number]# 1.00TIFF [facility] [place] Progress Note - Woundon 12-19 Progress Note - Wound [id number]# 1.00TIFF [facility] [place] Consent for Procedure/Surger yon 12-26-2023 Consent for Procedure/Surgery [id number]#1 .00TIFF [facility] [place] Consent for Procedure/Surgery [id number]#1 .00TIFF [facility] [place] Consent for Treatmenton Consent for Treatment [id number]#1 .00TIFF [facility] [place] Multi-Wound Charton 12-26-19 Multi-Wound Chart [id number]. 5 [id number]# 1.00TIFF [facility] [place] Nursing Assessment - Woundon 12-26-2023 Nursing Assessment - Wound 159.140.124. [id number]# 1.00TIFF [facility] [place] Nursing Note - Woundon 12-25 Nursing Note - Wound 159.140.124. 05 [id number]# 1.00TIFF [facility] [place] Physician Orderon 12-26-2023 Physician Order [id number]. 5 [id number]# 1.00TIFF [facility] [place] Procedure - Woundon 12-26-19 24 Procedure - Wound 159.140.124. 5 [id number]# 1.00TIFF [facility] [place] Progress Note - Woundon Progress Note - Wound [id number]. [id number]# 1.00TIFF [facility] [place] Nursing Note - Woundon 12-19 Nursing Note - Wound 159.140.124. 05 [id number]# 1.00TIFF [facility] [place] Physician Orderon 12-20-2023 Physician Order [id number].. 5 [id number]# 1.00TIFF [facility] [place] Procedure - Woundon 12-20-19 Procedure - Wound [id number] 5 [id number]# 1.00TIFF [facility] [place] Progress Note - Woundon Progress Note - Wound 159.140.124. [id number]# 1.00TIFF [facility] [place] Consent for Procedure/Surger yon 12-19-2023 Consent for Procedure/Surgery [id number]# 1.00TIFF [facility] [place] Consent for Treatmenton 11-21 Consent for Treatment [id number]#1 .00TIFF [facility] [place] Multi-Wound Charton 12-19-19 Multi-Wound Chart [id number] 4 [id number]# 1.00TIFF [facility] [place] Nursing Assessment - Woundon 12-19-2023 Nursing Assessment - Wound [id number]# 1.00TIFF [facility] [place] Ambulatory Visit Summaryon 12-15-2023 Ambulatory Visit Summary [facility] [place] Consent for Procedure/Surger yon 12-12-2023 Consent for Procedure/Surgery [id number]# 1.00TIFF [facility] [place] Consent for Treatmenton 11-20 Consent for Treatment [id number]#1 .00TIFF [facility] [place] Multi-Wound Charton 12-12-19 Multi-Wound Chart [id number] 4 [id number]# 1.00TIFF [facility] [place] Nursing Assessment - Woundon 12-12-2023 Nursing Assessment - Wound 170.71.121.117. [id number]# 1.00TIFF [facility] [place] Nursing Note - Woundon 12-11 Nursing Note - Wound [id number] 04 [id number]# 1.00TIFF [facility] [place] Physician Orderon 12-12-2023 Physician Order [id number]. [id number]# 1.00TIFF [facility] [place] Procedure - Woundon 12-12-19 Procedure - Wound 170.71.121.117. 4 [id number]# 1.00TIFF Normal [facility] [place] Progress Note - Woundon -2 Progress Note - Wound [id number]# 1.00TIFF Normal [facility] [place] Consenton 11-22-2023 Consent [id number] 0 [id number]#1. 00TIFF Normal [facility] [place] Consent for Procedure/Surger yon 11-20-2023 Consent for Procedure/Surgery [id number]#1 .00TIFF Normal [facility] [place] Consent for Treatmenton Consent for Treatment [id number]#1 .00TIFF [facility] [place] IntraOperative Documentson 0 11-20-2023 IntraOperative Documents [id number]#1 .00TIFF [facility] [place] IntraOperative Documents [id number]#1 .00TIFF [facility] Main OR Intraoperative Recor don 11-20-2023 Main OR Intraoperative Record Normal [facility] Main OR Preoperative Recordo n 11-20-2023 Main OR Preoperative Record Normal [facility] Operative Reporton 4 Operative Report Normal [facility] Comment on above: Result Comment: Elec tronically Signed By: Taz THOMAS MD\.br\Date and Time Signed: 11/20/23 13:26 EDT Progress Note-Physicianon Progress Note-Physician Normal [facility] [place] Comment on above: Result Comment: Elec tronically Signed By: Taz THOMAS MD\.br\Date and Time Signed: 11/20/23 13:30 EDT C Blood Charcoalon 4 Blood Culture Charcoal [facility] [place] Comment on above: Performed By: #### 1 [id number] ####[id number] [place] [address] Blood Culture Charcoal Normal [facility] [place] Comment on above: Performed By: #### 1 [id number] ####[facility] [place] [address] [place] [address] Basophils Auto (Bld) [#/Vol] Ordered By: Manish Fu on 11-17-2023 Basophils (Bld) [#/Vol] 0.0 10*3/uL 0.0-0.2 [facility] Basophils/100 WBC Auto (Bld) Ordered By: Manish Fu on 11-17-2023 Basophils/100 WBC (Bld) 0.7 % . [facility] Calcium [Mass/volume] in Ser um or PlasmaOrdered By: Manish Fu on 11-17-2023 Calcium [Mass/Vol] 9.3 mg/dL 8.6-10.3 [facility] Carbon dioxide, total [Moles /volume] in Serum or PlasmaOrdered By: Manish Fu on 11-17-2023 CO2 [Moles/Vol] 41.4 mmol/L 21.0-31.0 [facility] Chloride [Moles/volume] in S raymond or PlasmaOrdered By: Manishnatanael Chasesevero on 11-17-2023 Chloride [Moles/Vol] 102 mmol/L 98-[address] [facility] Creatinine [Mass/volume] in Serum or PlasmaOrdered By: Manishmiguel Fu on 11-17-2023 Creatinine [Mass/Vol] 1.47 mg/dL 0.70-1.30 [facility] Eosinophils Auto (Bld) [#/Vo l]Ordered By: Manish Fu on 11-17-2023 Eosinophils (Bld) [#/Vol] 0.3 10*3/uL 0.0-0.45 [facility] Eosinophils/100 WBC Auto (Bl d)Ordered By: Manish Fu on 11-17-2023 Eosinophils/100 WBC (Bld) 5.6 % . [facility] Erythrocyte distribution wid th Auto (RBC) [Ratio]Ordered By: Manish Fu on 11-17-2023 Erythrocyte distribution width (RBC) [Ratio] 18.4 % 12.0-14.8 [facility] Glucose Glucometer (BldC) [M ass/Vol]Ordered By: Manish Fu on 11-17-2023 Glucose [Mass/Vol] 165 mg/dL [facility] Comment on above: Random Glucose Refer ence Range is dependent on time and content of last meal. Glucose of more than 200 mg/dL in a nonstressed, ambulatory subject supports the diagnosis of Diabetes Mellitus. Glucose [Mass/volume] in Ser um or PlasmaOrdered By: Manish Fu on 11-17-2023 Glucose [Mass/Vol] 114 mg/dL 70-100 [facility] Comment on above: ADA recommended refe rence rangeRandom Glucose Reference Range is dependent on time and content of last meal. Glucose of more than 200 mg/dL in a nonstressed, ambulatory subject supports the diagnosis of Diabetes Mellitus. Hematocrit Auto (Bld) [Volum e fraction]Ordered By: Manish Fu on 11-17-2023 Hematocrit (Bld) [Volume fraction] 39.5 % 38.8-50.0 [facility] Hemoglobin [Mass/volume] in BloodOrdered By: Manish Fu on 11-17-2023 Hemoglobin (Bld) [Mass/Vol] 12.3 g/dL 13.0-17.0 [facility] Leukocytes [#/volume] correc maria guadalupe for nucleated erythrocytes in Blood by Automated counOrdered By: Manish Fu on 11-17-2023 WBC corrected for nucl RBC Auto (Bld) [#/Vol] 6.0 10*3/uL 4.1-10.5 [facility] Lymphocytes Auto (Bld) [#/Vo l]Ordered By: Manish Fu on 11-17-2023 Lymphocytes (Bld) [#/Vol] 1.3 10*3/uL 1.00-4.8 [facility] Lymphocytes/100 WBC Auto (Bl d)Ordered By: Manish Fu on 11-17-2023 Lymphocytes/100 WBC (Bld) 21.7 % . [facility] MCH Auto (RBC) [Entitic mass ]Ordered By: Manish Fu on 11-17-2023 MCH (RBC) [Entitic mass] 26.0 pg 27.5-35.2 [facility] MCHC Auto (RBC) [Mass/Vol]Or dered By: Manish Fu on 11-17-2023 MCHC (RBC) [Mass/Vol] 31.2 g/dL 32.5-35.6 [facility] MCV Auto (RBC) [Entitic vol] Ordered By: Manish Fu on 11-17-2023 MCV (RBC) [Entitic vol] 83.4 fL 83.5-101 [facility] Monocytes Auto (Bld) [#/Vol] Ordered By: Manish Fu on 11-17-2023 Monocytes (Bld) [#/Vol] 0.6 10*3/uL 0.0-0.8 [facility] Monocytes/100 WBC Auto (Bld) Ordered By: Manish Fu on 11-17-2023 Monocytes/100 WBC (Bld) 10.4 % . [facility] Neutrophils Auto (Bld) [#/Vo l]Ordered By: Manish Fu on 11-17-2023 Neutrophils (Bld) [#/Vol] 3.7 10*3/uL 1.8-7.7 [facility] Neutrophils/100 WBC Auto (Bl d)Ordered By: Manish Fu on 11-17-2023 Neutrophils/100 WBC (Bld) 61.6 % . [facility] No Panel InformationOrdered By: Manish Fu on 11-17-2023 Estimated GFR (CKD-EPI) 52.934 mL/Min [facility] Creatinine Clearance (Chem 70.70 [facility] Nucleated erythrocytes [Pres ence] in Blood by Automated countOrdered By: Manish Fu on 11-17-2023 Nucleated RBC Auto Ql (Bld) 0.1 /100{WBC} 0-0.5 [facility] Platelet mean volume Auto (B ld) [Entitic vol]Ordered By: Manish Fu on 11-17-2023 Platelet mean volume (Bld) [Entitic vol] 6.8 fL 6.6-10.1 [facility] Platelets Auto (Bld) [#/Vol] Ordered By: Manish Fu on 11-17-2023 Platelets (Bld) [#/Vol] 248 10*3/uL 150-450 [facility] Potassium [Moles/volume] in Serum or PlasmaOrdered By: Manish Fu on 11-17-2023 Potassium [Moles/Vol] 4.5 mmol/L 3.5-5.1 [facility] RBC Auto (Bld) [#/Vol]Ordere d By: Manish Fu on 11-17-2023 RBC (Bld) [#/Vol] 4.73 10*6/uL 3.90-5.60 [facility] Serum or plasma anion gap de terminationOrdered By: Manish Fu on 11-17-2023 Anion gap [Moles/Vol] 10.1 mmol/L 6.0-15.0 [facility] Sodium [Moles/volume] in Ser um or PlasmaOrdered By: Manish Fu on 11-17-2023 Sodium [Moles/Vol] 149 mmol/L 136-145 [facility] Urea nitrogen [Mass/volume] in Serum or PlasmaOrdered By: Manish Fu on 11-17-2023 Urea nitrogen [Mass/Vol] 44 mg/dL 7-25 [facility] WBC Auto (Bld) [#/Vol]Ordere d By: Manish Fu on 11-17-2023 WBC (Bld) [#/Vol] 6.0 10*3/uL 4.1-10.5 [facility] Admission Noteon 11-16-2023 Admission Note [id number]#1 .00TIFF Normal [facility] [place] No Panel InformationOrdered By: Manish Fu on 11-16-2023 Bedside Glucose Comment Glu2: cleaned meter [facility] Admission Noteon 11-15-2023 Admission Note [id number]#1 .00TIFF Normal [facility] Laboratory - Chemistry and C hemistry - challengeOrdered By: Manish Fu on 11-15-2023 CO2 [Moles/Vol] 34.8 mmol/L 23.0-27.0 [facility] HCO3 (Bld) [Moles/Vol] 32.6 mmol/L 23.0-29.0 [facility] Magnesium [Mass/volume] in S raymond or PlasmaOrdered By: Manish Fu on 11-15-2023 Magnesium [Mass/Vol] 2.3 mg/dL 1.9-2.[address] [facility] No Panel InformationOrdered By: Manish Fu on 11-15-2023 Arterial Blood Base Excess 3.8 mmol/L -3.0-3.0 [facility] Arterial Blood Oxygen Content 8.0 mmol/L 6.6-9.7 [facility] Arterial Blood Oxygen Saturation 94.1 % 95.0-100.0 [facility] Arterial Blood Partial Pressure CO2 70.1 mm[Hg] 35.0-45.0 [facility] Arterial Blood Partial Pressure O2 73.0 mm[Hg] 80.0-100.0 [facility] Arterial Blood pH 7.29 7.35-7.45 [facility] Blood Gas Critical Value See comment [facility] Comment on above: Critical Value dickerson d on: 11/15/2023 at 12:53 Blood Gas Sample Site Right radial [facility] FiO2 44 % [facility] Oxygen Delivery Device Nasal cannula [facility] Alanine aminotransferase [En zymatic activity/volume] in Serum or PlasmaOrdered By: Manish Fu on 11-14-2023 ALT [Catalytic activity/Vol] 14 U/L 7-52 [facility] Albumin [Mass/volume] in Ser um or Plasma by Bromocresol green (BCG) dye binding methoOrdered By: Manish Fu on 11-14-2023 Albumin BCG dye [Mass/Vol] 3.2 g/dL 3.5-5.7 [facility] Alkaline phosphatase [Enzyma tic activity/volume] in Serum or PlasmaOrdered By: Manish Fu on 11-14-2023 ALP [Catalytic activity/Vol] 92 U/L 34-104 [facility] Aspartate aminotransferase [ Enzymatic activity/volume] in Serum or PlasmaOrdered By: Manish [facility] on 11-14-2023 AST [Catalytic activity/Vol] 10 U/L 13-39 [facility] Bilirubin.total [Mass/volume ] in Serum or PlasmaOrdered By: Manish [facility] on 11-14-2023 Bilirubin [Mass/Vol] 0.6 mg/dL 0.3-1.[address] [facility] Globulin Calc (S) [Mass/Vol] Ordered By: [facility] on 11-14-2023 Globulin (S) [Mass/Vol] 2.8 g/dL [facility] Protein [Mass/volume] in Ser um or PlasmaOrdered By: [facility] on 11-14-2023 Protein [Mass/Vol] 6.0 g/dL 6.4-8.9 [facility] Serum or plasma albumin/glob ulin mass ratioOrdered By: [facility] on 11-14-2023 Albumin/Globulin [Mass ratio] 1.1 {ratio} [facility] C Urineon 11-13-2023 Bacteria identified Cx Nom (U) Normal [facility] Comment on above: Performed By: #### 2 [id number] ####[facility] [address] [place] [address] Automated erythrocytes count in urine sediment (number/area)Ordered By: Tera Nevarez on 11-11-2023 RBC Auto (Urine sed) [#/Area] Innumerable [HPF] 0-4 [facility] Automated leukocytes count i n urine sediment (number/area)Ordered By: Tera Nevarez on 11-11-2023 WBC Auto (Urine sed) [#/Area] 50-100 [HPF] 0-4 [facility] Automated urine hyaline cast s count (number/volume)Ordered By: Tera Nevarez on 11-11-2023 Hyaline casts Auto (U) [#/Vol] 0-8 [LPF] 0-1 [facility] BMPon 11-11-2023 Anion gap [Moles/Vol] 18 mmol/L High 6-16 [facility] Comment on above: Performed By: #### 2 [id number], [id number], [id number], [id number], [id number], [id number] ####[facility] [address] [place] [address] Calcium [Mass/Vol] 8.8 mg/dL Low 8.9-11.1 [facility] Comment on above: Performed By: #### 2 [id number], [id number], [id number], [id number], [id number], [id number], [id number] ####[facility] [address] [place] [address] Chloride [Moles/Vol] 95 mmol/L Low 101-[address] [facility] Comment on above: Performed By: #### 2 [id number], [id number], [id number], [id number], [id number], [id number], [id number] ####[facility] [address] [place] [address] CO2 [Moles/Vol] 24 mmol/L Normal 21-31 [facility] Comment on above: Performed By: #### 2 [id number], [id number], [id number], 08418392, 59547776, 14230604, [id number] ####[facility] [address] [place] [address] Creatinine [Mass/Vol] 4.9 mg/dL High 0.5-1.3 [facility] Comment on above: Performed By: #### 2 [id number], [id number], 85965404, 23230829, 67090816, 06657512, [id number] ####[facility] [address] [place] [address] Glucose [Mass/Vol] 311 mg/dL High 55-199 [facility] [place] Comment on above: Performed By: #### 2 [id number], [id number], 62470812, 01893887, 54616610, 65082159, 6193927 ####[facility] [address] [place] [address] Potassium [Moles/Vol] 5.3 mmol/L Normal 3.5-5.3 [facility] Comment on above: Performed By: #### 2 [id number], 9744632, [id number], [id number], [id number], 76492424, [id number] ####[facility] [address] [place] [address] Sodium [Moles/Vol] 132 mmol/L Low 135-145 [facility] Comment on above: Performed By: #### 2 [id number], 3686847, 12757662, 85730838, 25887861, 57063568, 1742722 ####[facility] [address] [place] [address] Urea nitrogen [Mass/Vol] 76 mg/dL High 5-21 [facility] Comment on above: Performed By: #### 2 416243, 8150484, 57989270, 23024477, 85180473, 32048292, 7022551 ####[facility] [address] [place] [address] Urea nitrogen/Creatinine [Mass ratio] 16 No Units Normal 10-20 [facility] Comment on above: Performed By: #### 2 548447, 1787643, 15142840, 71784390, 76800067, 09440164, 6964969 ####[facility] [address] [place] [address] BNPon 11-11-2023 Natriuretic peptide B (Bld) [Mass/Vol] 99 pg/mL High 5-80 [facility] Comment on above: Performed By: #### 2 905393, 6965942, 15865377, 69741218, 03105600, 27206662, 1119581 ####[facility] [address] [place] [address] Bilirubin Test strip Ql (U)O rdered By: Tera Nevarez on 11-11-2023 Bilirubin Ql (U) Negative Negative [facility] Blood Gas Art, with Lytes, Ramya hugh, [place] 11-11-2023 a/A Ratio Art 26.50 % Normal >=0.80 [facility] Comment on above: Performed By: #### 4 [id number] ####[facility] [address] [facility] [place] [address] AaDO2 Art 157.8 mmHg High 5.0-15.0 [facility] Comment on above: Performed By: #### 4 [id number] ####[facility] [address] [facility] [place] [address] Allens Test Positive Normal [facility] Comment on above: Performed By: #### 4 [id number] ####[facility] [address] [facility] [place] [address] Base Excess Arterial -2.4 mmol/L Low >=2.8 [facility] Comment on above: Performed By: #### 4 [id number] ####[facility] [address] [facility] [place] [address] cCa2+ Art 4.70 mg/dL Normal 4.40-5.30 [facility] Comment on above: Performed By: #### 4 [id number] ####[facility] [address] [facility] [place] [address] cCl- Art 97.0 mmol/L Low 101.0-111.0 [facility] Comment on above: Performed By: #### 4 [id number] ####[facility] [address] [facility] [place] [address] cGlu Art 311 mg/dL High 55-99 [facility] Comment on above: Performed By: #### 4 [id number] ####[facility] [address] [facility] [place] [address] cK+ Art 5.5 mmol/L High 3.5-5.3 [facility] Comment on above: Performed By: #### 4 [id number] ####[facility] [address] [place] [address] cLac Art 1.0 mmol/L Normal .5-2.2 [facility] Comment on above: Performed By: #### 4 [id number] ####[address] [address] marble cutter operator+ Art 135.0 mmol/L Normal 135.0-145.0 [facility] Comment on above: Performed By: #### 4 [id number] ####[place] [address] Device Cannula Normal [facility] Comment on above: Performed By: #### 4 [id number] ####[place] [address] Drawn by korina clement Invalid Interpretation Code [facility] Comment on above: Performed By: #### 4 [id number] ####[place] [address] FCOHb Art 1.9 % Normal 1.5-4.9 [facility] Comment on above: Result Comment: Refe rence rangeNonsmoker <1.5%Smoker <5.0%Heavy Smoker <9.0% Performed By: #### 4 [id number] ####[address] [address] FIO2 BG 40 Invalid Interpretation Code [facility] Comment on above: Performed By: #### 4 [id number] ####[address] [address] FMetHb Art 0.1 % Normal 0.0-1.9 [facility] Comment on above: Performed By: #### 4 [id number] ####[address] [address] FO2Hb Art 86.9 % Low 93.0-100.0 [facility] Comment on above: Performed By: #### 4 [id number] ####[address] [address] HCO3 (Bld) [Moles/Vol] 22.2 mmol/L Normal 22.0-26.0 [facility] Comment on above: Performed By: #### 4 [id number] ####[address] [address] Hemoglobin (Bld) [Mass/Vol] 12.8 g/dL Normal 12.0-17.0 [facility] Comment on above: Performed By: #### 4 [id number] ####[address] [address] Oxygen saturation in Blood 88.7 % Low 95.0-100.0 [facility] Comment on above: Performed By: #### 4 [id number] ####[address] [address] P CO2 Arterial 58.0 mmHg High 35.0-45.0 [facility] Comment on above: Performed By: #### 4 [id number] ####[address] [address] P O2 Arterial 56.8 mmHg Low 80.0-100.0 [facility] Comment on above: Performed By: #### 4 [id number] ####[address] [address] pH Arterial 7.255 Low 7.350-7.450 [facility] Comment on above: Performed By: #### 4 [id number] ####[address] [address] Sample Site R Radial Normal [facility] Comment on above: Performed By: #### 4 [id number] ####[address] [address] Sample Type Arterial Draw Normal [facility] Comment on above: Performed By: #### 4 [id number] ####[address] [address] CBC w/ Auto Diffon 4 Basophils/100 WBC (Bld) 0.5 % Normal 0.0-2.0 [facility] Comment on above: Performed By: #### 2 674617, 3008482, 13304935, 84354734, 03682400, 51160628, 3976771 ####[address] [place] [address] Basophils/Leukocytes Auto (Bld) [Pure # fraction] 0.0 E9/L Normal 0.0-0.2 [facility] Comment on above: Performed By: #### 2 673049, 9940745, 56779793, 55247263, 52506558, 30786544, 2505193 ####[address] [address] Eosinophils (Bld) [#/Vol] 0.2 E9/L Normal 0.0-0.5 [facility] Comment on above: Performed By: #### 2 816050, 4048151, 12817168, 52822440, 46411073, 82041955, 3847246 ####[address] [address] Eosinophils/100 WBC (Bld) 1.9 % Normal 0.0-8.0 [facility] Comment on above: Performed By: #### 2 489657, 0133516, 91607846, 54606039, 79826944, 55159350, 0091256 ####[address] [place] [address] Erythrocyte distribution width (RBC) [Ratio] 18.6 % High 10.9-14.2 [facility] Comment on above: Performed By: #### 2 577243, 1626987, 86983476, 03092179, 98489893, 19685136, 6236371 ####[address] [address] Hematocrit (Bld) [Volume fraction] 41.9 % Normal 37.7-49.0 [facility] Comment on above: Performed By: #### 2 598396, 5635221, 26142260, 31142944, 04834045, 47981671, 0717300 ####[facility] [address] [place] [address] Hemoglobin (Bld) [Mass/Vol] 12.8 g/dL Low 13.5-17.5 [facility] Comment on above: Performed By: #### 2 316738, 4000906, 89674317, 43171931, 25740335, 08513654, 6777484 ####[facility] [address] [place] [address] Lymphocytes (Bld) [#/Vol] 0.8 E9/L Low 1.0-4.0 [facility] Comment on above: Performed By: #### 2 534245, 3713918, 66940425, 85062311, 05418315, 38268855, 0666544 ####[facility] [address] [place] [address] Lymphocytes/100 WBC (Bld) 9.1 % Low 14.0-50.0 [facility] Comment on above: Performed By: #### 2 786615, 4421919, 29250774, 84688085, 51502670, 43549320, 3600017 ####[facility] [address] [place] [address] MCH (RBC) [Entitic mass] 26.4 pg Low 27.0-34.0 [facility] Comment on above: Performed By: #### 2 510138, 8162946, 06793710, 32906896, 94349977, 33254419, 3901366 ####[facility] [address] [place] [address] MCHC (RBC) [Mass/Vol] 30.6 g/dL Low 31.4-36.0 [facility] Comment on above: Performed By: #### 2 186990, 4698167, 77674840, 96767473, 39936112, 17402671, 8401486 ####[facility] [address] [place] [address] MCV (RBC) [Entitic vol] 86.3 fL Normal 80.0-100.0 [facility] Comment on above: Performed By: #### 2 305736, 8958018, 85832062, 16485174, 04905066, 03355608, 5480125 ####[facility] [address] [place] [address] Monocytes (Bld) [#/Vol] 0.5 E9/L Normal 0.2-1.0 [facility] Comment on above: Performed By: #### 2 515198, 9731188, 79693175, 55578351, 74019734, 21039110, 0491524 ####[facility] [address] [place] [address] Neutrophils (Bld) [#/Vol] 7.0 E9/L Normal 2.0-7.5 [facility] Comment on above: Performed By: #### 2 890346, 3162265, 11462952, 21805600, 45016131, 36008171, 2953371 ####[address] [address] Neutrophils/100 WBC (Bld) 82.2 % High 36.0-75.0 [facility] Comment on above: Performed By: #### 2 579381, 2016061, 85190066, 18076658, 43608341, 54423472, 7029261 ####[address] [address] Platelet 254.0 E9/L Normal 150.0-500.0 [facility] Comment on above: Performed By: #### 2 958851, 5005952, 75026553, 04396437, 18246072, 10977519, 6207434 ####[address] [place] [address] Platelet mean volume (Bld) [Entitic vol] 6.9 fL Normal 6.4-10.8 [facility] Comment on above: Performed By: #### 2 044130, 6978939, 14079110, 31841262, 09386892, 79431394, 0630891 ####[facility] [address] [place] [address] RBC (Bld) [#/Vol] 4.9 E12/L Normal 4.3-5.9 [facility] Comment on above: Performed By: #### 2 572921, 9051444, 67299450, 41117879, 12006829, 80264354, 9392516 ####[facility] [address] [place] [address] WBC corrected for nucl RBC Auto (Bld) [#/Vol] 8.5 E9/L Normal 4.0-11.0 [facility] Comment on above: Performed By: #### 2 519845, 5849114, 42815318, 51967326, 51802247, 11516727, 5148300 ####[facility] [address] [place] [address] CHEMISTRYOrdered By: SYSTEM SYSTEM on 11-11-2023 Troponin [...] High Sensitivity Troponin I Instructions For Use, [employer], March 2018) Troponin 12.60 pg/mL Low 15.90 - 38.40 pg/mL [facility] Comment on above: Interpretive Data: T he 95% CI (Confidence Interval) PPV (Positive Predictive Value) for myocardial infarction in females is 38 pg/mL, in males 51 pg/mL. The results should be used in conjunction with clinical conditions of myocardial infarction. (Access High Sensitivity Troponin I Instructions For Use, [employer], March 2018) Anion gap [Moles/Vol] 18 mmol/L [...] Instructions For Use, [employer], March 2018) Urea nitrogen [Mass/Vol] 76 mg/dL High 5 - 21 mg/dL [facility] Urea nitrogen/Creatinine [Mass ratio] 16 mg/mg Normal 10 - 20 [facility] CHEMISTRYOrdered By: Deacon Marcano on 11-11-2023 Natriuretic peptide B (Bld) [Mass/Vol] 99 pg/mL High 5 - 80 pg/mL [facility] HemeManSS COAGULATIONOrdered By: Catina Schmidt on 11-11-2023 aPTT Coag (PPP) [Time] 36.5 s Normal 25.1 - 36.5 second(s) [facility] Auto Coag Comment on above: Interpretive Data: [...] the same coagulation reagent and instrumentation as [facility]. Currently there are no coagulation studies available worldwide for children to 14 days, and no normal ranges. Heparin therapeutic range (represented by Anti-Factor Xa activity of 0.2 - 0.4 U/mL) corresponds to PTT of 56.6 - 109.0 sec. INR Coag (PPP) [Relative time] 0.94 {INR} Invalid Interpretation Code [facility] Auto Coag Comment on above: Interpretive Data: I NR results are specifically intended to assess patients stabilized on long-term Anticoagulation therapy suggested INR s Less Intensive Anticoagulation 2.0 3.0 Conventional Range 3.0 4.5 PT Coag (PPP) [Time] 10.5 s Normal 9.4 - 1 2.5 second(s) [facility] Auto Coag Comment on above: Interpretive Data: [...] the same coagulation reagent and instrumentation as [facility]. Currently there are no coagulation studies available worldwide for children to 14 days, and no normal ranges. Casts typing in urine sedime nt by light microscopyOrdered By: Tera Nevarez on 11-11-2023 Casts LM Nom (Urine sed) None seen [LPF] None Seen [facility] Color Auto (U)Ordered By: Neptali Nevarez on 11-11-2023 Color (U) [place] Yellow [facility] Consent for Treatmenton 10-20 Consent for Treatment [id number] .00TIFF Normal [facility] Creatine kinase [Enzymatic a ctivity/volume] in Serum or PlasmaOrdered By: Tera Nevarez on 11-11-2023 CK [Catalytic activity/Vol] 125 U/L [facility] Creatinine [Mass/volume] in UrineOrdered By: Tera Nevarez on 11-11-2023 Creatinine (U) [Mass/Vol] 266.0 mg/dL 14.0-26.0 [facility] ED Clinical Summaryon 2023 ED [facility] ED Note-Physicianon 11-11-19 ED Note-Physician Normal [facility] Comment on above: Result Comment: Elec tronically Signed By: Paddy Betancourt PA-C\.br\Date and Time Signed: 11/11/23 12:42 EDT\.br\Electronically Co-Signed By: Alejandro Silva M.D.\.br\Date and Time Co-Signed: 11/11/23 19:21 EDT ED Patient Education Noteon 11-11-2023 ED Patient Education Note Normal [facility] ED Patient Summaryon 024 ED Patient Summary Normal [facility] Eosinophils detection in uri ne sediment by Jean stainOrdered By: Tera Nevarez on 11-11-2023 Eosinophils Jean stain Ql (Urine sed) 1 % 0-1 [facility] FT Blood GasesOrdered By: St candice Hebert on 11-11-2023 a/A Ratio Art 26.50 % Normal >=0.80% [facility] Resp Auto SS AaDO2 Art 157.8 mm[Hg] High 5.0 - 15.0 mmHg FT Re sp Auto SS Allens Test Positive [...] 5.5 mmol/L High 3.5 - 5.3 mmol/L [facility] Res p Auto SS cLac Art 1.0 mmol/L Normal 0.5 - 2.2 mmol/L [facility] Res p Auto SS marble cutter operator+ Art 135.0 mmol/L Normal 135.0 - 145.0 mmol/L [facility] Resp Auto SS Device Cannula (11/11/23 9:17 AM) Normal [facility] Resp Auto SS Drawn by korina clement Invalid Interpretation Code [facility] Resp Auto SS FCOHb Art 1.9 % Normal 1.5 - 4.9 % [facility] Resp Auto SS Comment on above: Interpretive Data: R eference range Nonsmoker <1.5% Smoker <5.0% Heavy Smoker <9.0% FIO2 BG [address] [facility] Resp Auto SS FMetHb Art 0.1 % Normal 0.0 - 1.9 % [facility] Resp Auto SS FO2Hb Art 86.9 % Low 93.0 - 100.0 % [facility] Resp Auto SS HCO3 (Bld) [Moles/Vol] 22.2 mmol/L Normal 22.0 - 26.0 mmol/L [facility] Resp Auto SS Hemoglobin (Bld) [Mass/Vol] 12.8 g/dL Normal 12.0 - 17.0 gm/dL [facility] Resp Auto SS P CO2 Arterial 58.0 mm[Hg] High 35.0 - 45.0 mmHg FTM C Resp Auto SS P O2 Arterial 56.8 mm[Hg] Low 80.0 - 100.0 mmHg FTM C Resp Auto SS pH (Bld) 7.255 [pH] Low 7.350 - 7.450 [facility] Resp Auto SS Sample Site R Radial (11/11/23 9:17 AM) Normal [facility] Resp Auto SS Sample Type Arterial Draw (11/11/23 9:17 AM) Normal [facility] Resp Auto SS HEMATOLOGYOrdered By: SYSTEM SYSTEM [...] on 11-11-2023 Ketones (U) [Mass/Vol] Negative Negative [facility] Lactate [Moles/volume] in Se rum or PlasmaOrdered By: Tera Nevarez on 11-11-2023 Lactate [Moles/Vol] 0.8 mmol/L 0.5-2.2 [facility] Lactic Acidon 11-11-2023 Lactic Acid Lvl 1.5 mmol/L Normal 0.5-2.2 [facility] Comment on above: Performed By: #### 2 224249, 4325495, 43560834, 86982274, 33999242, 02381720, 7325427 ####[facility] [address] [place] [address] Monitor Recordon 11-11-2023 Monitor Record [id number]# 1.00TIFF Normal [facility] Monitor Record [id number]# 1.00TIFF Normal [facility] Natriuretic peptide B [Mass/ Vol]Ordered By: Tera Nevarez on 11-11-2023 Natriuretic peptide B (Bld) [Mass/Vol] 115.0 pg/mL 5-100 [facility] Nitrite Test strip Ql (U)Ord ered By: Tera Nevarez on 11-11-2023 Nitrite Ql (U) Negative Negative [facility] No Panel InformationOrdered By: Tera Nevarez on 11-11-2023 Blood Gas Liter Flow 5 L/min [facility] PT & PTTon 11-11-2023 aPTT Coag (PPP) [Time] 36.5 second(s) Normal 25.1-36.5 [facility] Comment on above: Result Comment: Para meter 15 days - 4 weeks 1 - 5 months 6 - 11 months 1 - 5 years 6 - 10 years 11 - 17 years PTT Mean: 35.4 (27.6-45.6) Mean: 33.5 (24.8-40.7) Mean: 32.4 (25.1-40.7) Mean: 31.6 (24.0-39.2) Mean: 31.6 (26.9-38.7) Mean: 31.0 (24.6-38.4) Pediatric Reference ranges were obtained from a study by blane Dooley prepared from 1437 samples obtained at 7 different centers using the same coagulation reagent and instrumentation as [facility]. Currently there are no coagulation studies available worldwide for children to 14 days, and no normal ranges. Heparin therapeutic range (represented by Anti-Factor Xa activity of 0.2 - 0.4 U/mL) corresponds to PTT of 56.6 - 109.0 sec. Performed By: #### 2 961238, 7488903, 33096613, 76955417, 68013713, 64381600, 9690725 ####[facility] [address] [place] [address] INR Coag (PPP) [Relative time] 0.94 {INR} Invalid Interpretation Code [facility] Comment on above: Result Comment: INR results are specifically intended to assess patients stabilized on long-term Anticoagulation therapy suggested INR?s ?Less Intensive Anticoagulation? 2.0 ? 3.0Conventional Range 3.0 ? 4.5 Performed By: #### 2 162659, 7729705, 40262179, 92961588, 25066486, 75149853, 0292865 ####[facility] [address] [place] [address] PT Coag (PPP) [Time] 10.5 second(s) Normal 9.4-12.5 [facility] Comment on above: Result Comment: 15 d ays - 4 weeks 1 - 5 months 6 -11 months 1- 5 years 6-10 years 11 -17 years Mean: 11.2 (9.5-12.6) Mean: 11.0 (9.7-12.8) Mean: 11.0 (9.8-13.0) Mean: 11.3 (9.9-13.4) Mean: 11.7 (10.0-14.6) Mean: 11.8 (10.0 - 14.1) Pediatric Reference ranges were obtained from a study by Isaiah Kilbourne, et al. prepared from 1437 samples obtained at 7 different centers using the same coagulation reagent and instrumentation as [facility]. Currently there are no coagulation studies available worldwide for children to 14 days, and no normal ranges. Performed By: #### 2 478226, 6080202, 46022367, 66549431, 00743794, 93156943, 0410801 ####[facility] [address] [place] [address] Potassium [Moles/volume] in UrineOrdered By: Tera Nevarez on 11-11-2023 Potassium (U) [Moles/Vol] 29.7 mmol/L [facility] Comment on above: No reference range e stablished Pre-Arrival Noteon 4 Pre-Arrival Note Normal [facility] Protein Auto test strip (U) [Mass/Vol]Ordered By: Tera Nevarez on 11-11-2023 Protein (U) [Mass/Vol] 100 mg/dL Negative [facility] Protein [Mass/volume] in Uri neOrdered By: Tera Nevarez on 11-11-2023 Protein (U) [Mass/Vol] 105 mg/dL 0-9 [facility] Sodium [Moles/volume] in Uri neOrdered By: Tera Nevarez on 11-11-2023 Sodium (U) [Moles/Vol] 18 mmol/L [facility] Comment on above: No reference range e stablished Specific gravity Auto test s trip (U) [Rel density]Ordered By: Tera Nevarez on 11-11-2023 Specific gravity (U) [Rel density] 1.017 1.001-1.030 [facility] Squamous epithelial cells de tection in urine sediment by light microscopyOrdered By: Tera Nevarez on 11-11-2023 Epithelial cells.squamous LM Ql (Urine sed) 0-1 [HPF] 0-2 [facility] Transfer Documentson 024 Transfer Documents [id number]# 1.00TIFF Normal [facility] Troponin 0 Hr.on 11-11-2023 Troponin 12.40 pg/mL Low 15.90-38.40 [facility] Comment on above: Result Comment: The 95% CI (Confidence Interval) PPV (Positive Predictive Value) for myocardial infarction in females is 38 pg/mL, in males 51 pg/mL. The results should be used in conjunction with clinical conditions of myocardial infarction.(Access High Sensitivity Troponin I Instructions For Use, [employer], March 2018) Performed By: #### 2 778731, 9402294, 93940007, 12006426, 39358286, 05379555, 7275135 ####[facility] [address] [place] [address] Troponin 3 Hr.on 11-11-2023 Troponin 12.60 pg/mL Low 15.90-38.40 [facility] Comment on above: Result Comment: The 95% CI (Confidence Interval) PPV (Positive Predictive Value) for myocardial infarction in females is 38 pg/mL, in males 51 pg/mL. The results should be used in conjunction with clinical conditions of myocardial infarction.([employer] High Sensitivity Troponin I Instructions For Use, [employer], March 2018) Performed By: #### 1 [id number] ####[facility] [address] [place] [address] Troponin 6 Hr.on 11-11-2023 Troponin 12.90 pg/mL Low 15.90-38.40 [facility] Comment on above: Result Comment: The 95% CI (Confidence Interval) PPV (Positive Predictive Value) for myocardial infarction in females is 38 pg/mL, in males 51 pg/mL. The results should be used in conjunction with clinical conditions of myocardial infarction.(Access High Sensitivity Troponin I Instructions For Use, [employer], March 2018) Performed By: #### 1 [id number] ####[facility] [address] [place] [address] Troponin I.cardiac [Mass/vol ume] in Serum or Plasma by Detection limit <= 0.01 ng/Ordered By: Tera Nevarez on 11-11-2023 Troponin I.cardiac DL <= 0.01 ng/mL [Mass/Vol] 12.3 pg/mL 0.0-20.0 [facility] UA with Cult Rflxon 03-23-20 24 Bilirubin Ql (U) 1+ Abnormal Negative [facility] Comment on above: Performed By: #### 2 393748, [id number] ####[facility] [address] [place] [address] Clarity (U) TURBID Abnormal Clear [facility] Comment on above: Performed By: #### 2 348964, [id number] ####[facility] [address] [place] [address] Color (U) BROWN Invalid Interpretation Code [facility] Comment on above: Performed By: #### 2 565727, [id number] ####[facility] [address] [place] [address] Glucose Test strip (U) [Mass/Vol] Negative Normal Negative [facility] Comment on above: Performed By: #### 2 982813, [id number] ####[facility] [address] [place] [address] Hemoglobin Ql (U) 3+ Abnormal Negative [facility] Comment on above: Performed By: #### 2 882299, [id number] ####[facility] [address] [facility] [place] [address] Ketones (U) [Mass/Vol] TRACE Invalid Interpretation Code Negative [facility] Comment on above: Performed By: #### 2 479762, [id number] ####[facility] [address] [place] [address] Nitrite Ql (U) Positive Abnormal Negative [facility] Comment on above: Performed By: #### 2 940913, [id number] ####[facility] [address] [facility] [place] [address] pH (U) 5.5 [pH] Invalid Interpretation Code 5.0-9.0 [facility] Comment on above: Performed By: #### 2 421407, [id number] ####[facility] [address] [facility] [place] [address] Protein (U) [Mass/Vol] 2+ Abnormal Negative [facility] Comment on above: Performed By: #### 2 980038, [id number] ####[facility] [address] [place] [address] Specific gravity (U) [Rel density] >=1.030 Invalid Interpretation Code 1.005-1.030 [facility] Comment on above: Performed By: #### 2 878616, [id number] ####[facility] [address] [place] [address] UA Bacteria 2+ CD:[id number] Abnormal Trace [facility] Comment on above: Performed By: #### 2 097354, [id number] ####[facility] [address] [place] [address] UA Mucous Trace Normal Negative [facility] Comment on above: Performed By: #### 2 259791, [id number] ####[address] [address] UA RBC >75 Abnormal 0-3 [facility] Comment on above: Performed By: #### 2 545580, [id number] ####[facility] [address] [place] [address] UA Squam Epithelial 0-2 Normal 0-2 [facility] Comment on above: Performed By: #### 2 315221, [id number] ####[address] [address] UA WBC 31-75 Abnormal 0-5 [facility] Comment on above: Performed By: #### 2 494958, [id number] ####[facility] [address] [place] [address] Urobilinogen Qn (U) 0.2 Normal 0.0-1.0 [facility] Comment on above: Performed By: #### 2 938451, [id number] ####[facility] [address] [place] [address] WBC Auto Ql (U) 1+ Abnormal Negative [facility] Comment on above: Performed By: #### 2 302911, [id number] ####[facility] [address] [place] [address] UA Spec Desc Clean Catch Normal [facility] Comment on above: Performed By: #### 2 526935, [id number] ####[facility] [address] [place] [address] URINALYSISOrdered By: Yohannes Schmidt on 11-11-2023 Bilirubin Ql (U) 1+ *ABN* (11/11/23 9:14 AM) Invalid Interpretation Code Negative [facility] UA Auto SS Clarity (U) Turbid *ABN* [...] (11/11/23 9:14 AM) Invalid Interpretation Code 0-5 [facility] UA Auto SS Urobilinogen Qn (U) 0.2 (11/11/23 9:14 AM) Normal 0.0 - 1.0 [facility] UA Auto SS WBC Auto Ql (U) 1+ *ABN* (11/11/23 9:14 AM) Invalid Interpretation Code Negative [facility] UA Auto SS URINALYSISOrdered By: Paddy Jesus nderson on 11-11-2023 UA Spec Desc Clean Catch (11/11/23 9:14 AM) Normal [facility] UA Auto SS Work Phone: Urine bacteria detection by automated methodOrdered By: Tera Nevarez on 11-11-2023 Bacteria Auto Ql (U) None seen None Seen [facility] Urine clarity by refractomet ry automatedOrdered By: Tera Nevarez on 11-11-2023 Clarity Refractometry automated (U) Turbid Clear [facility] Urine culture routineOrdered By: Tera Nevarez on 11-11-2023 Bacteria identified Cx Nom (U) Kaelyn albicans [facility] Urine glucose measurement by automated test strip (mass/volume)Ordered By: Tera Nevarez on 11-11-2023 Glucose Auto test strip (U) [Mass/Vol] Normal mg/dL Normal [facility] Urine hemoglobin detection b y automated test stripOrdered By: Tera Nevarez on 11-11-2023 Hemoglobin Auto test strip Ql (U) 3+ Negative [facility] Urine leukocyte esterase det ection by automated test stripOrdered By: Tera Nevarez on 11-11-2023 Leukocyte esterase Auto test strip Ql (U) 3+ Negative [facility] Urobilinogen Auto test strip (U) [Mass/Vol]Ordered By: Tera Nevarez on 11-11-2023 Urobilinogen (U) [Mass/Vol] Normal mg/dL Normal [facility] XR Chest Single Viewon 11-10 XR Chest Single View Normal [facility] Yeast detection in urine sed iment by light microscopyOrdered By: Tera Nevarez on 11-11-2023 Yeast LM Ql (Urine sed) Hyphae present [HPF] None Seen [facility] Comment on above: 2+ eGFRon 11-11-2023 eGFR 12 mL/min/1.73 m2 Low >=59 [facility] Comment on above: Order Comment: Order added by Discern Expert. Performed By: #### 2 174982, 1526308, 21723212, [id number], [id number], 04057531, [id number] ####[facility] [address] [place] [address] pH Auto test strip (U)Ordere d By: Tera Nevarez on 11-11-2023 pH (U) 5.0 [pH] 5.0-9.0 [facility] Ambulatory Visit Summaryon 0 11-01-2023 Ambulatory Visit Summary Normal [facility] CNPNon 10-31-2023 CNPN Telephone (PODCCP) NICOLE LORA ([id number]) 1960 M Date Time Provider Department 10/31/23 MOUNIKA BROOKE PODCC During your visit today, we recorded the following information about you: Allergies As of Date: 10/31/2023 Noted Allergy Reaction PENICILLINS 12/01/2014 2 - Rash Date Reviewed: 10/25/2023 Reviewed by: Matt Kingston RN - Fully Assessed Reason for Visit: Follow Up Phone Call [[phone]] Cmt: Post Discharge F/U - attempt made. [...] Status:Closed by KIKO DEL VALLE on 10/31/23 [facility] Consent for Treatmenton 10-19 Consent for Treatment [id number] .00TIFF [facility] Discharge Instructionson Discharge Instructions [id number] 1.00TIFF Normal [facility] ED Clinical Summaryon 2023 ED Clinical Summary Normal Gina srinivasan [facility] ED Note-Physicianon 10-30-19 24 ED Note-Physician Normal [facility] Comment on above: Result Comment: Elec tronically Signed By: Staci Beck DO\Date and Time Signed: 10/30/23 05:22 EDT ED Patient Education Noteon 10-30-2023 ED Patient Education Note Normal [facility] ED Patient Summaryon 024 ED Patient Summary Normal [facility] CBC W Auto Differential pane l (Bld)on 10-28-2023 Basophils (Bld) [#/Vol] 0.04 10*3/uL Normal <0.11 [facility] Comment on above: Order Comment: Speci men Type: BLOOD SPECIMEN Ordering Facility: [facility] Address: [address] [place] [address] Performed By: #### 1 9123-9, 79186-7 #### [facility] CLIA [id number] [address] [place] [address] [place] Basophils/100 WBC (Bld) 0.7 % Normal [facility] Comment on above: Order Comment: Speci men Type: BLOOD SPECIMEN Ordering Facility: [facility] Address: [address] [place] [address] Performed By: #### 1 9123-9, 95946-4 #### [facility] CLIA [id number] [address] [place] [address] [place] Differential cell count method Nom (Bld) Auto Normal [facility] Comment on above: Order Comment: Speci men Type: BLOOD SPECIMEN Ordering Facility: [facility] [place] Address: [address] [place] [address] Performed By: #### 1 9123-9, 12044-8 #### [facility] CLIA [id number] [address] [place] [address] [place] Eosinophils (Bld) [#/Vol] 0.32 10*3/uL Normal <0.46 [facility] Comment on above: Order Comment: Speci men Type: BLOOD SPECIMEN Ordering Facility: [facility] [place] Address: [address] [place] [address] Performed By: #### 1 28239, 13273-4 #### [facility] CLIA [id number] [address] [place] [address] [place] Eosinophils/100 WBC (Bld) 5.4 % Normal [facility] Comment on above: Order Comment: Speci men Type: BLOOD SPECIMEN Ordering Facility: [facility] [place] Address: [address] [place] [address] Performed By: #### 1 9123-04, #### [facility] CLIA [id number] [address] [place] [address] [place] Erythrocyte distribution width (RBC) [Ratio] 16.1 % High 11.5-15.0 [facility] Comment on above: Order Comment: Speci men Type: BLOOD SPECIMEN Ordering Facility: [facility] Address: [address] [place] [address] Performed By: #### 1 9123-04, #### [facility] CLIA [id number] [address] [place] [address] [place] Hematocrit (Bld) [Volume fraction] 41.3 % Normal 39.0-51.0 [facility] Comment on above: Order Comment: Speci men Type: BLOOD SPECIMEN Ordering Facility: [facility] [place] Address: [address] [place] [address] Performed By: #### 1 23, #### [facility] CLIA [id number] [address] [place] [address] [place] Hemoglobin (Bld) [Mass/Vol] 12.3 g/dL Low 13.0-17.0 [facility] Comment on above: Order Comment: Speci men Type: BLOOD SPECIMEN Ordering Facility: [facility] [place] Address: [address] [place] [address] Performed By: #### 1 8723-9, 58454-5 #### [facility] CLIA [id number] [address] [place] [address] [place] Immature granulocytes (Bld) [#/Vol] 10*3/uL Normal <0.10 [facility] Comment on above: Order Comment: Speci men Type: BLOOD SPECIMEN Ordering Facility: [facility] Address: [address] [place] [address] Performed By: #### 1 23, #### [facility] CLIA [id number] [address] [place] [address] [place] Immature granulocytes/100 WBC (Bld) 0.3 % Normal [facility] Comment on above: Order Comment: Speci men Type: BLOOD SPECIMEN Ordering Facility: [facility] Address: [address] [place] [address] Performed By: #### 1 48, #### [facility] CLIA [id number] [address] [place] [address] [place] Lymphocytes (Bld) [#/Vol] 1.01 10*3/uL Normal 1.00-4.00 [facility] Comment on above: Order Comment: Speci men Type: BLOOD SPECIMEN Ordering Facility: [facility] Address: [address] [place] [address] Performed By: #### 1 4704, #### [facility] CLIA [id number] [address] [place] [address] [place] Lymphocytes/100 WBC (Bld) 17.0 % Normal [facility] Comment on above: Order Comment: Speci men Type: BLOOD SPECIMEN Ordering Facility: [facility] Address: [address] [place] [address] Performed By: #### 1 239, #### [facility] CLIA [id number] [address] [place] [address] [place] MCH (RBC) [Entitic mass] 26.6 pg Normal 26.0-34.0 [facility] Comment on above: Order Comment: Speci men Type: BLOOD SPECIMEN Ordering Facility: [facility] Address: [address] [place] [address] Performed By: #### 1 5936, 73518-5 #### [facility] CLIA [id number] [address] [place] [address] [place] MCHC (RBC) [Mass/Vol] 29.8 g/dL Low 30.5-36.0 [facility] Comment on above: Order Comment: Speci men Type: BLOOD SPECIMEN Ordering Facility: [facility] Address: [address] [place] [address] Performed By: #### 1 9123-9, 18338-2 #### [facility] CLIA [id number] [address] [place] [address] [place] MCV (RBC) [Entitic vol] 89.4 fL Normal 80.0-100.0 [facility] Comment on above: Order Comment: Speci men Type: BLOOD SPECIMEN Ordering Facility: [facility] [place] Address: [address] [place] [address] Performed By: #### 1 9123-9, 72922-0 #### [facility] CLIA [id number] [address] [place] [address] [place] Monocytes (Bld) [#/Vol] 0.67 10*3/uL Normal <0.87 [facility] Comment on above: Order Comment: Speci men Type: BLOOD SPECIMEN Ordering Facility: [facility] Address: [address] [place] [address] Performed By: #### 1 9123-9, 45796-8 #### [facility] CLIA [id number] [address] [place] [address] [place] Monocytes/100 WBC (Bld) 11.3 % Normal [facility] Comment on above: Order Comment: Speci men Type: BLOOD SPECIMEN Ordering Facility: [facility] Address: [address] [place] [address] Performed By: #### 1 9123-9, 72552-4 #### [facility] CLIA [id number] [address] [place] [address] [place] Neutrophils (Bld) [#/Vol] 3.88 10*3/uL Normal 1.45-7.50 [facility] Comment on above: Order Comment: Speci men Type: BLOOD SPECIMEN Ordering Facility: [facility] Address: [address] [place] [address] Performed By: #### 1 23, #### [facility] CLIA [id number] [address] [place] [address] [place] Neutrophils/100 WBC (Bld) 65.3 % Normal [facility] Comment on above: Order Comment: Speci men Type: BLOOD SPECIMEN Ordering Facility: [facility] Address: [address] [place] [address] Performed By: #### 1 9123-04, #### [facility] CLIA [id number] [address] [place] [address] [place] Nucleated RBC (Bld) [#/Vol] 10*3/uL Normal <0.01 [facility] Comment on above: Order Comment: Speci men Type: BLOOD SPECIMEN Ordering Facility: [facility] Address: [address] [place] [address] Performed By: #### 1 9123-04, #### [facility] CLIA [id number] [address] [place] [address] [place] Nucleated RBC/100 WBC (Bld) [Ratio] 0.0 /100 WBC Normal [facility] Comment on above: Order Comment: Speci men Type: BLOOD SPECIMEN Ordering Facility: [facility] Address: [address] [place] [address] Performed By: #### 1 91239, #### [facility] CLIA [id number] [address] [place] [address] [place] Platelet mean volume (Bld) [Entitic vol] 8.9 fL Low 9.0-12.7 [facility] Comment on above: Order Comment: Speci men Type: BLOOD SPECIMEN Ordering Facility: [facility] Address: [address] [place] [address] Performed By: #### 1 91239, #### [facility] CLIA [id number] [address] [place] [address] [place] Platelets (Bld) [#/Vol] 250 10*3/uL Normal 150-400 [facility] Comment on above: Order Comment: Speci men Type: BLOOD SPECIMEN Ordering Facility: [facility] Address: [address] [place] [address] Performed By: #### 1 9123-9, 77740-9 #### [facility] CLIA [id number] [address] [place] [address] [place] RBC (Bld) [#/Vol] 4.62 10*6/uL Normal 4.20-6.00 [facility] Comment on above: Order Comment: Speci men Type: BLOOD SPECIMEN Ordering Facility: [facility] Address: [address] [place] [address] Performed By: #### 1 9123-9, 53306-3 #### [facility] CLIA [id number] [address] [place] [address] OF [facility] WBC (Bld) [#/Vol] 5.94 10*3/uL Normal 3.70-11.00 [facility] Comment on above: Order Comment: Speci men Type: BLOOD SPECIMEN Ordering Facility: [facility] Address: [address] [place] [address] Performed By: #### 1 9123-9, 73644-3 #### [facility] CLIA [id number] [address] [place], [place] [id number] [facility] CNDSon 10-28-2023 CNDS HNO ID: [id number] Author: TAY STEWART MD Service: General Internal [...] Follow Up Appointments Follow-Up Appointment Office number: [phone] When: In 1 week Patient/Parents to call for appointment?: Yes Tay Stewart MD [phone] [place] [address] PCP Requested Referral Follow-Up Appointment With: your Primary Care Doctor When: In 1 week Patient/Parents to call for appointment?: Yes Additional Provider to Provider Information: This is a 63 year old male with a PMHx of CKD 3b, chronic respiratory failure, morbid obesity, insulin dependent diabetes, left forefoot amputation admitted from home, lives in [place] for fluid overload. The patient states he's [...] no ischemic (more content not included)... Normal [facility] Magnesium SerPl-mCncon 10-27 Magnesium [Mass/Vol] 2.0 mg/dL Normal 1.7-2.3 [facility] Comment on above: Order Comment: Speci men Type: BLOOD SPECIMEN Ordering Facility: [facility] Address: [address] [place] [address] Performed By: #### 1 9123-9, 28223-2 #### [facility] CLIA [id number] [address] [place] [address] [place] Renal function 2000 panelon 10-28-2023 Albumin [Mass/Vol] 3.3 g/dL Low 3.9-4.9 [facility] Comment on above: Order Comment: Speci men Type: BLOOD SPECIMEN Ordering Facility: [facility] Address: [address] [place] [address] Performed By: #### 1 9, 82542-7 #### [facility] CLIA [id number] [address] [place] [address] [place] Anion gap [Moles/Vol] 8 mmol/L Low 9-18 [facility] Comment on above: Order Comment: Speci men Type: BLOOD SPECIMEN Ordering Facility: [facility] Address: [address] [place] [address] Performed By: #### 1 9123-04, 46096-1 #### [facility] CLIA [id number] [address] [place] [address] [place] Calcium [Mass/Vol] 9.1 mg/dL Normal 8.5-10.2 [facility] Comment on above: Order Comment: Speci men Type: BLOOD SPECIMEN Ordering Facility: [facility] Address: [address] [place] [address] Performed By: #### 1 9, 35092-7 #### [facility] CLIA [id number] [address] [place] [address] [place] Chloride [Moles/Vol] 97 mmol/L Normal 97-105 [facility] Comment on above: Order Comment: Speci men Type: BLOOD SPECIMEN Ordering Facility: [facility] Address: [address] [place] [address] Performed By: #### 1 9, 04266-6 #### [facility] CLIA [id number] [address] [place] [address] [place] CO2 [Moles/Vol] 35 mmol/L High 22-30 [facility] Comment on above: Order Comment: Speci men Type: BLOOD SPECIMEN Ordering Facility: [facility] Address: [address] [place] [address] Performed By: #### 1 83239, 33105-6 #### [facility] CLIA [id number] [address] [place] [address] [place] Creatinine [Mass/Vol] 1.72 mg/dL High 0.73-1.22 [facility] Comment on above: Order Comment: [place] Type: BLOOD SPECIMEN Ordering Facility: [facility] Address: [address] [place] [address] Performed By: #### 1 9123-9, 93951-4 #### [facility] CLIA [id number] [place] [address] [place] Creatinine and Glomerular filtration rate.predicted panel (S/P/Bld) 44 mL/min/1.73m??? Low >=60 [facility] Comment on above: Order Comment: [place] Type: BLOOD SPECIMEN Ordering Facility: [facility] Address: [address] [place] [address] Result Comment: Meredith mated Glomerular Filtration Rate [...] actual GFR. Performed By: #### 1 9123-9, 17085-7 #### [facility] CLIA [id number] [place], [place] [address] [place] Glucose [Mass/Vol] 152 mg/dL High 74-99 [facility] Comment on above: Order Comment: [place] Type: BLOOD SPECIMEN Ordering Facility: [facility] [place] Address: [address] [place] [address] Result Comment: The [place] Diabetes Association (ADA) provides guidance for cutoff [...] Standards of Medical Care in Diabetes 2016, [place] [employer]. Diabetes Care. 2016.39(Suppl 1). Performed By: #### 1 9123-9, 48053-4 #### [facility] CLIA [id number] [address] [place] [address] [place] Phosphate [Mass/Vol] 4.6 mg/dL Normal 2.7-4.8 [facility] Comment on above: Order Comment: Speci men Type: BLOOD SPECIMEN Ordering Facility: [facility] [place] Address: [address] [place] [address] Performed By: #### 1 9123-9, 00402-6 #### [facility] CLIA [id number] [address] [place] [address] [place] Potassium [Moles/Vol] 4.0 mmol/L Normal 3.7-5.1 [facility] Comment on above: Order Comment: Speci men Type: BLOOD SPECIMEN Ordering Facility: [facility] [place] Address: [address] [place] [address] Performed By: #### 1 9123-9, 04835-7 #### [facility] CLIA [id number] [address] [place] [address] [place] Sodium [Moles/Vol] 140 mmol/L Normal 136-144 [facility] Comment on above: Order Comment: Speci men Type: BLOOD SPECIMEN Ordering Facility: [facility] [place] Address: [address] [place] [address] Performed By: #### 1 91239, 15548-4 #### [facility] CLIA [id number] [address] [place] [address] [place] Urea nitrogen [Mass/Vol] 39 mg/dL High 9-24 [facility] Comment on above: Order Comment: Speci men Type: BLOOD SPECIMEN Ordering Facility: [facility] [place] Address: [address] [place] [address] Performed By: #### 1 9123-9, 66536-7 #### [facility] CLIA [id number] [address] [place] [address] [place] CBC W Auto Differential pane l (Bld)on 10-27-2023 Basophils (Bld) [#/Vol] 10*3/uL Normal <0.11 [facility] Comment on above: Order Comment: Speci men Type: BLOOD SPECIMEN Ordering Facility: [facility] [place] Address: [address] [place] [address] Performed By: #### 1 239, 04062-2 #### [facility] CLIA [id number] [address] [place] [address] [place] Basophils/100 WBC (Bld) 0.3 % Normal [facility] Comment on above: Order Comment: Speci men Type: BLOOD SPECIMEN Ordering Facility: [facility] [place] Address: [address] [place] [address] Performed By: #### 1 239, #### [facility] CLIA [id number] [address] [place] [address] [place] Differential cell count method Nom (Bld) Auto Normal [facility] Comment on above: Order Comment: Speci men Type: BLOOD SPECIMEN Ordering Facility: [facility] [place] Address: [address] [place] [address] Performed By: #### 1 9523, #### [facility] CLIA [id number] [address] [place] [address] [place] Eosinophils (Bld) [#/Vol] 0.26 10*3/uL Normal <0.46 [facility] Comment on above: Order Comment: Speci men Type: BLOOD SPECIMEN Ordering Facility: [facility] [place] Address: [address] [place] [address] Performed By: #### 1 38239, 40877-1 #### [facility] CLIA [id number] [address] [place] [address] [place] Eosinophils/100 WBC (Bld) 4.4 % Normal [facility] Comment on above: Order Comment: Speci men Type: BLOOD SPECIMEN Ordering Facility: [facility] [place] Address: [address] [place] [address] Performed By: #### 1 9123-04, #### [facility] CLIA [id number] [address] [place] [address] [place] Erythrocyte distribution width (RBC) [Ratio] 16.0 % High 11.5-15.0 [facility] Comment on above: Order Comment: Speci men Type: BLOOD SPECIMEN Ordering Facility: [facility] [place] Address: [address] [place] [address] Performed By: #### 1 9123-9, #### [facility] CLIA [id number] [address] [place] [address] [place] Hematocrit (Bld) [Volume fraction] 39.9 % Normal 39.0-51.0 [facility] Comment on above: Order Comment: Speci men Type: BLOOD SPECIMEN Ordering Facility: [facility] [place] Address: [address] [place] [address] Performed By: #### 1 9123-9, #### [facility] CLIA [id number] [address] [place] [address] [place] Hemoglobin (Bld) [Mass/Vol] 12.0 g/dL Low 13.0-17.0 [facility] Comment on above: Order Comment: Speci men Type: BLOOD SPECIMEN Ordering Facility: [facility] [place] Address: [address] [place] [address] Performed By: #### 1 9123-9, #### [facility] CLIA [id number] [address] [place] [address] [place] Immature granulocytes (Bld) [#/Vol] 10*3/uL Normal <0.10 [facility] Comment on above: Order Comment: Speci men Type: BLOOD SPECIMEN Ordering Facility: [facility] [place] Address: [address] [place] [address] Performed By: #### 1 9123-9, #### [facility] CLIA [id number] [address] [place] [address] [place] Immature granulocytes/100 WBC (Bld) 0.3 % Normal [facility] Comment on above: Order Comment: Speci men Type: BLOOD SPECIMEN Ordering Facility: [facility] [place] Address: [address] [place] [address] Performed By: #### 1 9123-9, 05700-1 #### [facility] CLIA [id number] [address] [place] [address] [place] Lymphocytes (Bld) [#/Vol] 0.96 10*3/uL Low 1.00-4.00 [facility] Comment on above: Order Comment: Speci men Type: BLOOD SPECIMEN Ordering Facility: [facility] [place] Address: [address] [place] [address] Performed By: #### 1 9123-9, #### [facility] CLIA [id number] [address] [place] [address] [place] Lymphocytes/100 WBC (Bld) 16.4 % Normal [facility] Comment on above: Order Comment: Speci men Type: BLOOD SPECIMEN Ordering Facility: [facility] [place] Address: [address] [place] [address] Performed By: #### 1 239, #### [facility] CLIA [id number] [address] [place] [address] [place] MCH (RBC) [Entitic mass] 26.7 pg Normal 26.0-34.0 [facility] Comment on above: Order Comment: Speci men Type: BLOOD SPECIMEN Ordering Facility: [facility] [place] Address: [address] [place] [address] Performed By: #### 1 9123-9, #### [facility] CLIA [id number] [address] [place] [address] [place] MCHC (RBC) [Mass/Vol] 30.1 g/dL Low 30.5-36.0 [facility] Comment on above: Order Comment: Speci men Type: BLOOD SPECIMEN Ordering Facility: [facility] [place] Address: [address] [place] [address] Performed By: #### 1 9123-9, 48546-0 #### [facility] CLIA [id number] [address] [place] [address] [place] MCV (RBC) [Entitic vol] 88.9 fL Normal 80.0-100.0 [facility] Comment on above: Order Comment: Speci men Type: BLOOD SPECIMEN Ordering Facility: [facility] [place] Address: [address] [place] [address] Performed By: #### 1 9123-04, #### [facility] CLIA [id number] [address] [place] [address] [place] Monocytes (Bld) [#/Vol] 0.70 10*3/uL Normal <0.87 [facility] Comment on above: Order Comment: Speci men Type: BLOOD SPECIMEN Ordering Facility: [facility] [place] Address: [address] [place] [address] Performed By: #### 1 9123-04, #### [facility] CLIA [id number] [address] [place] [address] [place] Monocytes/100 WBC (Bld) 11.9 % Normal [facility] Comment on above: Order Comment: Speci men Type: BLOOD SPECIMEN Ordering Facility: [facility] [place] Address: [address] [place] [address] Performed By: #### 1 9123-04, #### [facility] CLIA [id number] [address] [place] [address] [place] Neutrophils (Bld) [#/Vol] 3.91 10*3/uL Normal 1.45-7.50 [facility] Comment on above: Order Comment: Speci men Type: BLOOD SPECIMEN Ordering Facility: [facility] [place] Address: [address] [place] [address] Performed By: #### 1 9123-04, #### [facility] CLIA [id number] [address] [place] [address] [place] Neutrophils/100 WBC (Bld) 66.7 % Normal [facility] Comment on above: Order Comment: Speci men Type: BLOOD SPECIMEN Ordering Facility: [facility] [place] Address: [address] [place] [address] Performed By: #### 1 9123-04, 26791-6 #### [facility] CLIA [id number] [address] [place] [address] [place] Nucleated RBC (Bld) [#/Vol] 10*3/uL Normal <0.01 [facility] Comment on above: Order Comment: Speci men Type: BLOOD SPECIMEN Ordering Facility: [facility] [place] Address: [address] [place] [address] Performed By: #### 1 9123-9, 20320-0 #### [facility] CLIA [id number] [address] [place] [address] [place] Nucleated RBC/100 WBC (Bld) [Ratio] 0.0 /100 WBC Normal [facility] Comment on above: Order Comment: Speci men Type: BLOOD SPECIMEN Ordering Facility: [facility] [place] Address: [address] [place] [address] Performed By: #### 1 9123-9, #### [facility] CLIA [id number] [address] [place] [address] [place] Platelet mean volume (Bld) [Entitic vol] 8.7 fL Low 9.0-12.7 [facility] Comment on above: Order Comment: Speci men Type: BLOOD SPECIMEN Ordering Facility: [facility] [place] Address: [address] [place] [address] Performed By: #### 1 9123-9, #### [facility] CLIA [id number] [address] [place] [address] [place] Platelets (Bld) [#/Vol] 222 10*3/uL Normal 150-400 [facility] Comment on above: Order Comment: Speci men Type: BLOOD SPECIMEN Ordering Facility: [facility] [place] Address: [address] [place] [address] Performed By: #### 1 9123-9, 82913-3 #### [facility] CLIA [id number] [address] [place] [address] [place] RBC (Bld) [#/Vol] 4.49 10*6/uL Normal 4.20-6.00 [facility] Comment on above: Order Comment: Speci men Type: BLOOD SPECIMEN Ordering Facility: [facility] [place] Address: [address] [place] [address] Performed By: #### 1 9123-9, 31221-3 #### [facility] CLIA [id number] [address] [place] [address] [facility] [place] WBC (Bld) [#/Vol] 5.87 10*3/uL Normal 3.70-11.00 [facility] Comment on above: Order Comment: Speci men Type: BLOOD SPECIMEN Ordering Facility: [facility] [place] Address: [address] [place] [address] Performed By: #### 1 9123-9, 99155-8 #### [facility] CLIA [id number] [address] [place] [id number] [facility] CONSULT PROGon 10-27-2023 CONSULT PROG HNO ID: [id number] Author: NAUN COUCH MD Service: Nephrology Author [...] amputation admitted from home who presented to [facility] with complaints of worsening shortness of breath, bilateral lower extremity edema and ~ 10lb weight gain in the last few weeks. Patient reports multiple hospital admissions in 2023 at [facility] in [place] for fluid overload. He states he usually [...] feeling b (more content not included)... Normal [facility] Comprehensive metabolic 2000 panelon 10-27-2023 Albumin [Mass/Vol] 3.3 g/dL Low 3.9-4.9 [facility] Comment on above: Order Comment: Speci men Type: BLOOD SPECIMEN Ordering Facility: [facility] [place] Address: [address] [place] [address] Performed By: #### 1 9123-9, 45168-2 #### [facility] CLIA [id number] [address] [place] [address] [place] ALP [Catalytic activity/Vol] 88 U/L Normal 38-113 [facility] Comment on above: Order Comment: Speci men Type: BLOOD SPECIMEN Ordering Facility: [facility] [place] Address: [address] [place] [address] Performed By: #### 1 9123-9, 62651-4 #### [facility] CLIA [id number] [address] [place] [address] [place] ALT [Catalytic activity/Vol] 11 U/L Normal 10-54 [facility] Comment on above: Order Comment: Speci men Type: BLOOD SPECIMEN Ordering Facility: [facility] [place] Address: [address] [place] [address] Performed By: #### 1 9123-9, 09845-3 #### [facility] CLIA [id number] [address] [place] [address] [place] Anion gap [Moles/Vol] 9 mmol/L Normal 9-18 [facility] Comment on above: Order Comment: Speci men Type: BLOOD SPECIMEN Ordering Facility: [facility] [place] Address: [address] [place] [address] Performed By: #### 1 9123-9, 79543-4 #### [facility] CLIA [id number] [address] [place] [address] [place] AST [Catalytic activity/Vol] 11 U/L Low 14-40 [facility] Comment on above: Order Comment: Speci men Type: BLOOD SPECIMEN Ordering Facility: [facility] [place] Address: [address] [place] [address] Performed By: #### 1 91239, 61554-5 #### [facility] CLIA [id number] [address] [place] [address] [place] Bilirubin [Mass/Vol] 0.6 mg/dL Normal 0.2-1.3 [facility] Comment on above: Order Comment: Speci men Type: BLOOD SPECIMEN Ordering Facility: [facility] [place] Address: [address] [place] [address] Performed By: #### 1 9123-9, #### [facility] CLIA [id number] [address] [place] [address] [place] Calcium [Mass/Vol] 9.1 mg/dL Normal 8.5-10.2 [facility] Comment on above: Order Comment: Speci men Type: BLOOD SPECIMEN Ordering Facility: [facility] [place] Address: [address] [place] [address] Performed By: #### 1 9123-9, #### [facility] CLIA [id number] [address] [place] [address] [place] Chloride [Moles/Vol] 100 mmol/L Normal 97-105 [facility] Comment on above: Order Comment: Speci men Type: BLOOD SPECIMEN Ordering Facility: [facility] [place] Address: [address] [place] [address] Performed By: #### 1 9123-9, #### [facility] CLIA [id number] [address] [place] [address] [place] CO2 [Moles/Vol] 35 mmol/L High 22-30 [facility] Comment on above: Order Comment: Speci men Type: BLOOD SPECIMEN Ordering Facility: [facility] [place] Address: [address] [place] [address] Performed By: #### 1 9123-9, 88710-8 #### [facility] CLIA [id number] [address] [place] [address] [place] Creatinine [Mass/Vol] 1.62 mg/dL High 0.73-1.22 [facility] Comment on above: Order Comment: Speci men Type: BLOOD SPECIMEN Ordering Facility: [facility] [place] Address: [address] [place] [address] Performed By: #### 1 9123-9, 46314-9 #### [facility] CLIA [id number] [address] [place] [address] [place] Creatinine and Glomerular filtration rate.predicted panel (S/P/Bld) 47 mL/min/1.73m??? Low >=60 [facility] Comment on above: Order Comment: [place] Type: BLOOD SPECIMEN Ordering Facility: [facility] [place] Address: [address] [place] [address] Result Comment: Meredith mated Glomerular Filtration Rate [...] actual GFR. Performed By: #### 1 9123-9, 42328-0 #### [facility] CLIA [id number] [place] [address] [place] Glucose [Mass/Vol] 145 mg/dL High 74-99 [facility] Comment on above: Order Comment: [place] Type: BLOOD SPECIMEN Ordering Facility: [facility] [place] Address: [address] [place] [address] Result Comment: The [place] Diabetes [employer] (ADA) provides guidance for cutoff [...] Standards of Medical Care in Diabetes 2016, [place] [employer]. Diabetes Care. 2016.39(Suppl 1). Performed By: #### 1 9123-9, 38784-4 #### [facility] CLIA [id number] [address] [place] [address] [place] Potassium [Moles/Vol] 4.1 mmol/L Normal 3.7-5.1 [facility] Comment on above: Order Comment: Speci men Type: BLOOD SPECIMEN Ordering Facility: [facility] [place] Address: [address] [place] [address] Performed By: #### 1 9123-9, 38332-9 #### [facility] CLIA [id number] [address] [place] [address] [place] Protein [Mass/Vol] 6.3 g/dL Normal 6.3-8.0 [facility] Comment on above: Order Comment: Speci men Type: BLOOD SPECIMEN Ordering Facility: [facility] [place] Address: [address] [place] [address] Performed By: #### 1 9123-9, 73005-3 #### [facility] CLIA [id number] [address] [place] [address] [place] Sodium [Moles/Vol] 144 mmol/L Normal 136-144 [facility] Comment on above: Order Comment: Speci men Type: BLOOD SPECIMEN Ordering Facility: [facility] [place] Address: [address] [place] [address] Performed By: #### 1 9123-9, 86605-6 #### [facility] CLIA [id number] [address] [place] [address] [place] Urea nitrogen [Mass/Vol] 40 mg/dL High 9-24 [facility] Comment on above: Order Comment: Speci men Type: BLOOD SPECIMEN Ordering Facility: [facility] [place] Address: [address] [place] [address] Performed By: #### 1 9123-9, 00152-1 #### [facility] CLIA [id number] [address] [place] [address] [place] Magnesium SerPl-mCncon 10-26 Magnesium [Mass/Vol] 1.9 mg/dL Normal 1.7-2.3 [facility] Comment on above: Order Comment: Speci men Type: BLOOD SPECIMEN Ordering Facility: [facility] [place] Address: [address] [place] [address] Performed By: #### 1 9123-9, 91448-7 #### [facility] CLIA [id number] [address] [place] [id number] [place] Phosphate SerPl-mCncon 10-26 Phosphate [Mass/Vol] 4.1 mg/dL Normal 2.7-4.8 [facility] Comment on above: Order Comment: Speci men Type: BLOOD SPECIMEN Ordering Facility: [facility] [place] Address: [address] [place] [address] Performed By: #### 1 9123-9, 53565-1 #### [facility] CLIA [id number] [address] [place] [id number] [place] THERAPY NTon 10-27-2023 THERAPY NT HNO ID: [id number] Author: VELIA HARGROVE RRT Service: Respiratory Therapy Author Type: Respiratory Therapist [...] 26, 2023 TIME: 10:12 PM PAGER/CONTACT #: [email or web address] Normal [facility] CBC W Auto Differential pane l (Bld)on 10-26-2023 Basophils (Bld) [#/Vol] 0.04 10*3/uL Normal <0.11 [facility] Comment on above: Order Comment: Speci men Type: BLOOD SPECIMEN Ordering Facility: [facility] [place] Address: [address] [place] [address] Performed By: #### P TTAC #### [facility] CLIA [id number] [address] [place] [address] [place] Basophils/100 WBC (Bld) 0.6 % Normal [facility] Comment on above: Order Comment: Speci men Type: BLOOD SPECIMEN Ordering Facility: [facility] [place] Address: [address] [place] [address] Performed By: #### P TTAC #### [facility] CLIA [id number] [address] [place] [address] [place] Differential cell count method Nom (Bld) Auto Normal [facility] Comment on above: Order Comment: Speci men Type: BLOOD SPECIMEN Ordering Facility: [facility] [place] Address: [address] [place] [address] Performed By: #### P TTAC #### [facility] CLIA [id number] [address] [place] [address] [place] Eosinophils (Bld) [#/Vol] 0.29 10*3/uL Normal <0.46 [facility] Comment on above: Order Comment: Speci men Type: BLOOD SPECIMEN Ordering Facility: [facility] [place] Address: [address] [place] [address] Performed By: #### P TTAC #### [facility] CLIA [id number] [address] [place] [address] [place] Eosinophils/100 WBC (Bld) 4.5 % Normal [facility] Comment on above: Order Comment: Speci men Type: BLOOD SPECIMEN Ordering Facility: [facility] [place] Address: [address] [place] [address] Performed By: #### P TTAC #### [facility] CLIA [id number] [address] [place] [address] [place] Erythrocyte distribution width (RBC) [Ratio] 16.3 % High 11.5-15.0 [facility] Comment on above: Order Comment: Speci men Type: BLOOD SPECIMEN Ordering Facility: [facility] [place] Address: [address] [place] [address] Performed By: #### P TTAC #### [facility] CLIA [id number] [address] [place] [address] [place] Hematocrit (Bld) [Volume fraction] 38.8 % Low 39.0-51.0 [facility] Comment on above: Order Comment: Speci men Type: BLOOD SPECIMEN Ordering Facility: [facility] [place] Address: [address] [place] [address] Performed By: #### P TTAC #### [facility] CLIA [id number] [address] [place] [address] [place] Hemoglobin (Bld) [Mass/Vol] 11.6 g/dL Low 13.0-17.0 [facility] Comment on above: Order Comment: Speci men Type: BLOOD SPECIMEN Ordering Facility: [facility] [place] Address: [address] [place] [address] Performed By: #### P TTAC #### [facility] CLIA [id number] [address] [place] [address] [place] Immature granulocytes (Bld) [#/Vol] 0.06 10*3/uL Normal <0.10 [facility] Comment on above: Order Comment: Speci men Type: BLOOD SPECIMEN Ordering Facility: [facility] [place] Address: [address] [place] [address] Performed By: #### P TTAC #### [facility] CLIA [id number] [address] [place] [address] [place] Immature granulocytes/100 WBC (Bld) 0.9 % Normal [facility] Comment on above: Order Comment: Speci men Type: BLOOD SPECIMEN Ordering Facility: [facility] [place] Address: [address] [place] [address] Performed By: #### P TTAC #### [facility] CLIA [id number] [address] [place] [address] [place] Lymphocytes (Bld) [#/Vol] 0.94 10*3/uL Low 1.00-4.00 [facility] Comment on above: Order Comment: Speci men Type: BLOOD SPECIMEN Ordering Facility: [facility] [place] Address: [address] [place] [address] Performed By: #### P TTAC #### [facility] CLIA [id number] [address] [place] [address] [place] Lymphocytes/100 WBC (Bld) 14.5 % Normal [facility] Comment on above: Order Comment: Speci men Type: BLOOD SPECIMEN Ordering Facility: [facility] [place] Address: [address] [place] [address] Performed By: #### P TTAC #### [facility] CLIA [id number] [address] [place] [address] STATES [facility] MCH (RBC) [Entitic mass] 27.0 pg Normal 26.0-34.0 [facility] Comment on above: Order Comment: Speci men Type: BLOOD SPECIMEN Ordering Facility: [facility] [place] Address: [address] [place] [address] Performed By: #### P TTAC #### [facility] CLIA [id number] [address] [place] [address] [place] MCHC (RBC) [Mass/Vol] 29.9 g/dL Low 30.5-36.0 [facility] Comment on above: Order Comment: Speci men Type: BLOOD SPECIMEN Ordering Facility: [facility] [place] Address: [address] [place] [address] Performed By: #### P TTAC #### [facility] CLIA [id number] [address] [place] [address] [place] MCV (RBC) [Entitic vol] 90.2 fL Normal 80.0-100.0 [facility] Comment on above: Order Comment: Speci men Type: BLOOD SPECIMEN Ordering Facility: [facility] [place] Address: [address] [place] [address] Performed By: #### P TTAC #### [facility] CLIA [id number] [address] [place] [address] Monocytes (Bld) [#/Vol] 0.71 10*3/uL Normal <0.87 [facility] Comment on above: Order Comment: Speci men Type: BLOOD SPECIMEN Ordering Facility: [facility] [place] Address: [address] [place] [address] Performed By: #### P TTAC #### [facility] CLIA [id number] [address] [place] [address] [place] Monocytes/100 WBC (Bld) 10.9 % Normal [facility] Comment on above: Order Comment: Speci men Type: BLOOD SPECIMEN Ordering Facility: [facility] [place] Address: [address] [place] [address] Performed By: #### P TTAC #### [facility] CLIA [id number] [address] [place] [address] [place] Neutrophils (Bld) [#/Vol] 4.45 10*3/uL Normal 1.45-7.50 [facility] Comment on above: Order Comment: Speci men Type: BLOOD SPECIMEN Ordering Facility: [facility] [place] Address: [address] [place] [address] Performed By: #### P TTAC #### [facility] CLIA [id number] [address] [place] [address] [place] Neutrophils/100 WBC (Bld) 68.6 % Normal [facility] Comment on above: Order Comment: Speci men Type: BLOOD SPECIMEN Ordering Facility: [facility] [place] Address: [address] [place] [address] Performed By: #### P TTAC #### [facility] CLIA [id number] [address] [place] [address] [place] Nucleated RBC (Bld) [#/Vol] 10*3/uL Normal <0.01 [facility] Comment on above: Order Comment: Speci men Type: BLOOD SPECIMEN Ordering Facility: [facility] [place] Address: [address] [place] [address] Performed By: #### P TTAC #### [facility] CLIA [id number] [address] [place] [address] [place] Nucleated RBC/100 WBC (Bld) [Ratio] 0.0 /100 WBC Normal [facility] Comment on above: Order Comment: Speci men Type: BLOOD SPECIMEN Ordering Facility: [facility] [place] Address: [address] [place] [address] Performed By: #### P TTAC #### [facility] CLIA [id number] [address] [place] [address] [place] Platelet mean volume (Bld) [Entitic vol] 9.0 fL Normal 9.0-12.7 [facility] Comment on above: Order Comment: Speci men Type: BLOOD SPECIMEN Ordering Facility: [facility] [place] Address: [address] [place] [address] Performed By: #### P TTAC #### [facility] CLIA [id number] [address] [place] [address] [place] Platelets (Bld) [#/Vol] 247 10*3/uL Normal 150-400 [facility] Comment on above: Order Comment: Speci men Type: BLOOD SPECIMEN Ordering Facility: [facility] [place] Address: [address] [place] [address] Performed By: #### P TTAC #### [facility] CLIA [id number] [address] [place] [address] [place] RBC (Bld) [#/Vol] 4.30 10*6/uL Normal 4.20-6.00 [facility] Comment on above: Order Comment: Speci men Type: BLOOD SPECIMEN Ordering Facility: [facility] [place] Address: [address] [place] [address] Performed By: #### P TTAC #### [facility] CLIA [id number] [address] [place] [address] [place] WBC (Bld) [#/Vol] 6.49 10*3/uL Normal 3.70-11.00 [facility] Comment on above: Order Comment: Speci men Type: BLOOD SPECIMEN Ordering Facility: [facility] [place] Address: [address] [place] [address] Performed By: #### P TTAC #### [facility] CLIA [id number] [address] [place] [address] OF [place] CONSULTon 10-26-2023 CONSULT HNO ID: [id number] Author: STEFANIE BARRETT MD Service: Pulmonary Disease [...] ?F) Axillary 75 16 94 % -- 10/25/236 -- -- -- 73 23 92 % -- 10/25/239 -- -- -- 70 18 90 % [...] [employer] (more content not included)... [facility] CONSULT PROGon 10-26-2023 CONSULT PROG HNO ID: [id number] Author: GORDO BUTLER APRN.CNP Service: Cardiovascular Medicine Author Type: Nurse Practitioner Type: Consult Progress Note Filed: 10/26/2023 14:03 Note Text: [facility] CARDIOVASCULAR MEDICINE PROGRESS NOTE (Template ID [id number]) SERVICE DATE: 10/26/2023 SERVICE TIME: 1115 PRIMARY [...] -- 10/25/23 0015 activity - [place] ([place] 10/24/23 0145 activity - [place] VTE Prophylaxis: VTE prophylaxis appropriate ASSESSMENT [...] DATE: October 26, 2023 TIME: 1:52 PM [facility] CONSULT PROG HNO ID: [id number] Author: NAUN COUCH MD Service: Nephrology Author [...] amputation admitted from home who presented to [facility] with complaints of worsening shortness of breath, bilateral lower extremity edema and ~ 10lb weight gain in the last few weeks. Patient reports multiple hospital admissions in 2023 at [facility] in [place] for fluid overload. He states he usually [...] mg TID More stable, feeling better -[employer]N [employer] (more content not included)... Normal [facility] Magnesium SerPl-mCncon 10-25 Magnesium [Mass/Vol] 2.1 mg/dL Normal 1.7-2.3 [facility] Comment on above: Order Comment: [place] Type: BLOOD SPECIMEN Ordering Facility: [facility] [place] Address: [address] [place] [address] Performed By: #### 1 9123-9, 69251-5 #### [facility] CLIA [id number] [place] [address] [place] Renal function 2000 panelon 10-26-2023 Albumin [Mass/Vol] 3.3 g/dL Low 3.9-4.9 [facility] Comment on above: Order Comment: [place] Type: BLOOD SPECIMEN Ordering Facility: [facility] [place] Address: [address] [place] [address] Performed By: #### 1 9123-9, 60855-3 #### [facility] CLIA [id number] [address] [place] [address] [place] Anion gap [Moles/Vol] 15 mmol/L Normal 9-18 [facility] Comment on above: Order Comment: Speci men Type: BLOOD SPECIMEN Ordering Facility: [facility] [place] Address: [address] [place] [address] Performed By: #### 1 9123-9, 20830-7 #### [facility] CLIA [id number] [address] [place] [address] [place] Calcium [Mass/Vol] 9.1 mg/dL Normal 8.5-10.2 [facility] Comment on above: Order Comment: Speci men Type: BLOOD SPECIMEN Ordering Facility: [facility] [place] Address: [address] [place] [address] Performed By: #### 1 239, 56484-4 #### [facility] CLIA [id number] [address] [place] [address] [place] Chloride [Moles/Vol] 101 mmol/L Normal 97-105 [facility] Comment on above: Order Comment: Speci men Type: BLOOD SPECIMEN Ordering Facility: [facility] [place] Address: [address] [place] [address] Performed By: #### 1 7623-9, 09125-5 #### [facility] CLIA [id number] [address] [place] [address] [place] CO2 [Moles/Vol] 30 mmol/L Normal 22-30 [facility] Comment on above: Order Comment: Speci men Type: BLOOD SPECIMEN Ordering Facility: [facility] [place] Address: [address] [place] [address] Performed By: #### 1 9123-9, 42632-6 #### [facility] CLIA [id number] [address] [place] [address] [place] Creatinine [Mass/Vol] 1.84 mg/dL High 0.73-1.22 [facility] Comment on above: Order Comment: Speci men Type: BLOOD SPECIMEN Ordering Facility: [facility] [place] Address: [address] [place] [address] Performed By: #### 1 5623-9, 96934-0 #### [facility] CLIA [id number] [address] [place] [address] [place] Creatinine and Glomerular filtration rate.predicted panel (S/P/Bld) 40 mL/min/1.73m??? Low >=60 [facility] Comment on above: Order Comment: [place] Type: BLOOD SPECIMEN Ordering Facility: [facility] [place] Address: [address] [place] [address] Result Comment: Meredith mated Glomerular Filtration Rate [...] actual GFR. Performed By: #### 1 9123-9, 13748-6 #### [facility] CLIA [id number] [place] [address] [place] Glucose [Mass/Vol] 189 mg/dL High 74-99 [facility] Comment on above: Order Comment: [place] Type: BLOOD SPECIMEN Ordering Facility: [facility] [place] Address: [address] [place] [address] Result Comment: The [place] Diabetes Association (ADA) provides guidance for cutoff [...] Standards of Medical Care in Diabetes 2016, [place] [employer]. Diabetes Care. 2016.39(Suppl 1). Performed By: #### 1 9123-9, 86138-6 #### [facility] CLIA [id number] [address] [place] [id number] [place] Phosphate [Mass/Vol] 3.9 mg/dL Normal 2.7-4.8 [facility] Comment on above: Order Comment: Speci men Type: BLOOD SPECIMEN Ordering Facility: [facility] [place] Address: [address] [place] [address] Performed By: #### 1 9123-9, 37961-3 #### [facility] CLIA [id number] [address] [place] [address] [place] Potassium [Moles/Vol] 4.3 mmol/L Normal 3.7-5.1 [facility] Comment on above: Order Comment: Speci men Type: BLOOD SPECIMEN Ordering Facility: [facility] [place] Address: [address] [place] [address] Performed By: #### 1 9123-9, 40046-0 #### [facility] CLIA [id number] [address] [place] [address] [place] Sodium [Moles/Vol] 146 mmol/L High 136-144 [facility] Comment on above: Order Comment: Speci men Type: BLOOD SPECIMEN Ordering Facility: [facility] [place] Address: [address] [place] [address] Performed By: #### 1 9123-9, 61643-6 #### [facility] CLIA [id number] [address] [place] [address] [place] Urea nitrogen [Mass/Vol] 48 mg/dL High 9-24 [facility] Comment on above: Order Comment: Speci men Type: BLOOD SPECIMEN Ordering Facility: [facility] [place] Address: [address] [place] [address] Performed By: #### 1 9123-9, 41492-7 #### [facility] CLIA [id number] [address] [place] [address] [place] ALLIED HEALTHon 10-25-2023 ALLIED HEALTH HNO ID: [id number] Author: CLARA HARDIN RT(Zarina) Service: Radiology Author [...] PATIENT PRESENTS WITH AN IMPLANTABLE OR ATTACHED PETROPHYSICIST: No RADIOLOGY DEPARTMENT: General X-ray: Exam(s) Completed: Chest X-Ray PERIPHERAL IV DATA: Not applicable SIGNED BY: RT Raffy(R) October 25, 2023 4:59 AM [facility] CASE MGT INIT CINDYon 2023 CASE MGT INIT [facility] HNO ID: [id number] Author: BUTCH WETZEL RN Service: ? Author Type: Registered Nurse Type: Care Mgt Initial Assessment Filed: 10/25/2023 09:57 Note Text: CARE MANAGEMENT: ASSESSMENT AND DISCHARGE PLAN SERVICE DATE: October 25, 2023 SERVICE TIME: 9:55 AM PCP: Mounika Brooke MD, MD Primary Contact: Extended Emergency Contact Information Primary Emergency Contact: DAVIN ESCOBAR [employer] Relation: Daughter Secondary Emergency Contact: Micah Lora [place] Relation: Son Admission Status: Inpatient Insurance Provider: [facility] Discharge Planning requested by: Per Department Practice Potential Transition Plans To Be Determined Advance Directives Current Advance Directive: None [employer] Professor Attempted to Assist with AD Completion: Yes [...] TIME: 9:54 AM CONTACT #: [phone] Normal [facility] CBC W Auto Differential pane l (Bld)on 10-25-2023 Basophils (Bld) [#/Vol] 0.03 10*3/uL Normal <0.11 [facility] Comment on above: Order Comment: Speci men Type: BLOOD SPECIMEN Ordering Facility: [facility] [place] Address: [address] [place] [address] Performed By: #### 1 2323-9, 79711-7 #### [facility] CLIA [id number] [address] [place] [address] [place] Basophils/100 WBC (Bld) 0.4 % Normal [facility] Comment on above: Order Comment: Speci men Type: BLOOD SPECIMEN Ordering Facility: [facility] [place] Address: [address] [place] [address] Performed By: #### 1 7323-9, #### [facility] CLIA [id number] [address] [place] [address] [place] Differential cell count method Nom (Bld) Auto Normal [facility] Comment on above: Order Comment: Speci men Type: BLOOD SPECIMEN Ordering Facility: [facility] [place] Address: [address] [place] [address] Performed By: #### 1 23-9, #### [facility] CLIA [id number] [address] [place] [address] [place] Eosinophils (Bld) [#/Vol] 0.22 10*3/uL Normal <0.46 [facility] Comment on above: Order Comment: Speci men Type: BLOOD SPECIMEN Ordering Facility: [facility] [place] Address: [address] [place] [address] Performed By: #### 1 18239, #### [facility] CLIA [id number] [address] [place] [address] [place] Eosinophils/100 WBC (Bld) 2.9 % Normal [facility] Comment on above: Order Comment: Speci men Type: BLOOD SPECIMEN Ordering Facility: [facility] [place] Address: [address] [place] [address] Performed By: #### 1 9123-9, #### [facility] CLIA [id number] [address] [place] [address] [place] Erythrocyte distribution width (RBC) [Ratio] 16.5 % High 11.5-15.0 [facility] Comment on above: Order Comment: Speci men Type: BLOOD SPECIMEN Ordering Facility: [facility] [place] Address: [address] [place] [address] Performed By: #### 1 91239, #### [facility] CLIA [id number] [address] [place] [address] [place] Hematocrit (Bld) [Volume fraction] 41.0 % Normal 39.0-51.0 [facility] Comment on above: Order Comment: Speci men Type: BLOOD SPECIMEN Ordering Facility: [facility] [place] Address: [address] [place] [address] Performed By: #### 1 91239, #### [facility] CLIA [id number] [address] [place] [address] [place] Hemoglobin (Bld) [Mass/Vol] 12.1 g/dL Low 13.0-17.0 [facility] Comment on above: Order Comment: Speci men Type: BLOOD SPECIMEN Ordering Facility: [facility] [place] Address: [address] [place] [address] Performed By: #### 1 9123-9, #### [facility] CLIA [id number] [address] [place] [address] [place] Immature granulocytes (Bld) [#/Vol] 0.04 10*3/uL Normal <0.10 [facility] Comment on above: Order Comment: Speci men Type: BLOOD SPECIMEN Ordering Facility: [facility] [place] Address: [address] [place] [address] Performed By: #### 1 9123-04, #### [facility] CLIA [id number] [address] [place] [address] [place] Immature granulocytes/100 WBC (Bld) 0.5 % Normal [facility] Comment on above: Order Comment: Speci men Type: BLOOD SPECIMEN Ordering Facility: [facility] [place] Address: [address] [place] [address] Performed By: #### 1 9123-04, #### [facility] CLIA [id number] [address] [place] [address] [place] Lymphocytes (Bld) [#/Vol] 0.80 10*3/uL Low 1.00-4.00 [facility] Comment on above: Order Comment: Speci men Type: BLOOD SPECIMEN Ordering Facility: [facility] [place] Address: [address] [place] [address] Performed By: #### 1 9123-04, #### [facility] CLIA [id number] [address] [place] [address] [place] Lymphocytes/100 WBC (Bld) 10.6 % Normal [facility] Comment on above: Order Comment: Speci men Type: BLOOD SPECIMEN Ordering Facility: [facility] [place] Address: [address] [place] [address] Performed By: #### 1 23, #### [facility] CLIA [id number] [address] [place] [address] [place] MCH (RBC) [Entitic mass] 26.8 pg Normal 26.0-34.0 [facility] Comment on above: Order Comment: Speci men Type: BLOOD SPECIMEN Ordering Facility: [facility] [place] Address: [address] [place] [address] Performed By: #### 1 91239, 68844-2 #### [facility] CLIA [id number] [address] [place] [address] [place] MCHC (RBC) [Mass/Vol] 29.5 g/dL Low 30.5-36.0 [facility] Comment on above: Order Comment: Speci men Type: BLOOD SPECIMEN Ordering Facility: [facility] [place] Address: [address] [place] [address] Performed By: #### 1 9123-9, #### [facility] CLIA [id number] [address] [place] [address] [place] MCV (RBC) [Entitic vol] 90.7 fL Normal 80.0-100.0 [facility] Comment on above: Order Comment: Speci men Type: BLOOD SPECIMEN Ordering Facility: [facility] [place] Address: [address] [place] [address] Performed By: #### 1 9123-9, #### [facility] CLIA [id number] [address] [place] [address] [place] Monocytes (Bld) [#/Vol] 0.64 10*3/uL Normal <0.87 [facility] Comment on above: Order Comment: Speci men Type: BLOOD SPECIMEN Ordering Facility: [facility] [place] Address: [address] [place] [address] Performed By: #### 1 9123-9, #### [facility] CLIA [id number] [address] [place] [address] [place] Monocytes/100 WBC (Bld) 8.5 % Normal [facility] Comment on above: Order Comment: Speci men Type: BLOOD SPECIMEN Ordering Facility: [facility] [place] Address: [address] [place] [address] Performed By: #### 1 9123-9, #### [facility] CLIA [id number] [address] [place] [address] [place] Neutrophils (Bld) [#/Vol] 5.80 10*3/uL Normal 1.45-7.50 [facility] Comment on above: Order Comment: Speci men Type: BLOOD SPECIMEN Ordering Facility: [facility] [place] Address: [address] [place] [address] Performed By: #### 1 9123-9, #### [facility] CLIA [id number] [address] [place] [address] [place] Neutrophils/100 WBC (Bld) 77.1 % Normal [facility] Comment on above: Order Comment: Speci men Type: BLOOD SPECIMEN Ordering Facility: [facility] [place] Address: [address] [place] [address] Performed By: #### 1 91239, #### [facility] CLIA [id number] [address] [place] [address] [place] Nucleated RBC (Bld) [#/Vol] 10*3/uL Normal <0.01 [facility] Comment on above: Order Comment: Speci men Type: BLOOD SPECIMEN Ordering Facility: [facility] [place] Address: [address] [place] [address] Performed By: #### 1 91239, #### [facility] CLIA [id number] [address] [place] [address] [place] Nucleated RBC/100 WBC (Bld) [Ratio] 0.0 /100 WBC Normal [facility] Comment on above: Order Comment: Speci men Type: BLOOD SPECIMEN Ordering Facility: [facility] [place] Address: [address] [place] [address] Performed By: #### 1 91239, #### [facility] CLIA [id number] [address] [place] [address] [place] Platelet mean volume (Bld) [Entitic vol] 8.6 fL Low 9.0-12.7 [facility] Comment on above: Order Comment: Speci men Type: BLOOD SPECIMEN Ordering Facility: [facility] [place] Address: [address] [place] [address] Performed By: #### 1 9123-9, #### [facility] CLIA [id number] [address] [place] [address] [place] Platelets (Bld) [#/Vol] 235 10*3/uL Normal 150-400 [facility] Comment on above: Order Comment: Speci men Type: BLOOD SPECIMEN Ordering Facility: [facility] [place] Address: [address] [place] [address] Performed By: #### 1 9123-9, 74202-6 #### [facility] CLIA [id number] [address] [place] [address] [place] [facility] RBC (Bld) [#/Vol] 4.52 10*6/uL Normal 4.20-6.00 [facility] Comment on above: Order Comment: Speci men Type: BLOOD SPECIMEN Ordering Facility: [facility] [place] Address: [address] [place] [address] Performed By: #### 1 9123-9, 26571-8 #### [facility] CLIA [id number] [address] [place] [address] WBC (Bld) [#/Vol] 7.53 10*3/uL Normal 3.70-11.00 [facility] Comment on above: Order Comment: Speci men Type: BLOOD SPECIMEN Ordering Facility: [facility] [place] Address: [address] [place] [address] Performed By: #### 1 9123-9, 91137-2 #### [facility] CLIA [id number] [address] [place] [address] ECHOon 10-25-2023 Echocardiography Echocardiography Report: Transthoracic Echo [facility] Date of service: 10/25/2023 2:47:07 PM Ordering physician: JUDI LOERA Indication: Chest Pain Symptom(s): Shortness of breath and Palpitations Technologist: Lizet OLMOS Interpreting physician: Moisés Hassan MD PATIENT: Name: [...] * * Final * * * CC [employer] Medical Image : [id number] Normal [facility] Gas and Carbon monoxide pane l (BldV)on 10-25-2023 Base excess Calc (BldV) [Moles/Vol] 6 mmol/L High 0-2 [facility] Comment on above: Order Comment: [place] Type: BLOOD SPECIMEN Ordering Facility: [facility] [place] Address: [address] [place] [address] Performed By: #### P TTAC #### [facility] CLIA [id number] [address] [place] [address] [place] Body temperature 98.78 [degF] Normal [facility] Comment on above: Order Comment: [place] Type: BLOOD SPECIMEN Ordering Facility: [facility] [place] Address: [address] [place] [address] Performed By: #### P TTAC #### [facility] CLIA [id number] [address] [place] [address] [place] Calcium.ionized (Bld) [Mass/Vol] 1.15 mmol/L Normal 1.08-1.30 [facility] Comment on above: Order Comment: [place] Type: BLOOD SPECIMEN Ordering Facility: [facility] [place] Address: [address] [place] [address] Performed By: #### P TTAC #### [facility] CLIA [id number] [address] [place] [address] [place] Calcium.ionized adjusted to pH 7.4 (BldA) [Moles/Vol] 1.12 mmol/L Normal 1.08-1.30 [facility] Comment on above: Order Comment: Speci men Type: BLOOD SPECIMEN Ordering Facility: [facility] [place] Address: [address] [place] [address] Performed By: #### P TTAC #### [facility] CLIA [id number] [address] [place] [address] [place] Carboxyhemoglobin (BldV) [Mass fraction] 2.7 % High 0.0-2.0 [facility] Comment on above: Order Comment: Speci men Type: BLOOD SPECIMEN Ordering Facility: [facility] [place] Address: [address] [place] [address] Result Comment: Carb oxyhemoglobin Reference Range for Smokers: 2.0-8.0% Performed By: #### P TTAC #### [facility] CLIA [id number] [address] [place] [address] [place] Chloride [Moles/Vol] 105 mmol/L Normal 97-105 [facility] Comment on above: Order Comment: Speci men Type: BLOOD SPECIMEN Ordering Facility: [facility] [place] Address: [address] [place] [address] Performed By: #### P TTAC #### [facility] CLIA [id number] [address] [place] [address] [place] CO2 (BldV) [Partial pressure] 61 mm[Hg] High 42-55 [facility] Comment on above: Order Comment: Speci men Type: BLOOD SPECIMEN Ordering Facility: [facility] [place] Address: [address] [place] [address] Performed By: #### P TTAC #### [facility] CLIA [id number] [address] [place] [address] [place] CO2 adjusted to patient's actual temperature (BldV) [Partial pressure] Normal [facility] Comment on above: Order Comment: Speci men Type: BLOOD SPECIMEN Ordering Facility: [facility] [place] Address: [address] [place] [address] Performed By: #### P TTAC #### [facility] CLIA [id number] [address] [place] [address] [place] FIO2 45 % Normal [facility] Comment on above: Order Comment: Speci men Type: BLOOD SPECIMEN Ordering Facility: [facility] [place] Address: [address] [place] [address] Performed By: #### P TTAC #### [facility] CLIA [id number] [address] [place] [address] [place] Glucose [Mass/Vol] 152 mg/dL High 60-105 [facility] Comment on above: Order Comment: Speci men Type: BLOOD SPECIMEN Ordering Facility: [facility] [place] Address: [address] [place] [address] Performed By: #### P TTAC #### [facility] CLIA [id number] [address] [place] [address] [place] HCO3 (Bld) [Moles/Vol] 33 mmol/L High 24-28 [facility] Comment on above: Order Comment: Speci men Type: BLOOD SPECIMEN Ordering Facility: [facility] [place] Address: [address] [place] [address] Performed By: #### P TTAC #### [facility] CLIA [id number] [address] [place] [address] [place] Hematocrit (Bld) [Volume fraction] 38.3 % Low 39.0-51.0 [facility] Comment on above: Order Comment: Speci men Type: BLOOD SPECIMEN Ordering Facility: [facility] [place] Address: [address] [place] [address] Performed By: #### P TTAC #### [facility] CLIA [id number] [address] [place] [address] [place] Hemoglobin (Bld) [Mass/Vol] 12.4 g/dL Low 13.0-17.0 [facility] Comment on above: Order Comment: Speci men Type: BLOOD SPECIMEN Ordering Facility: [facility] [place] Address: [address] [place] [address] Performed By: #### P TTAC #### [facility] CLIA [id number] [address] [place] [address] [place] Lactate [Moles/Vol] 0.9 mmol/L Normal 0.5-2.2 [facility] Comment on above: Order Comment: Speci men Type: BLOOD SPECIMEN Ordering Facility: [facility] [place] Address: [address] [place] [address] Performed By: #### P TTAC #### [facility] CLIA [id number] [address] [place] [address] [place] Methemoglobin (Bld) [Mass fraction] 1.2 % Normal 0.0-1.5 [facility] Comment on above: Order Comment: Speci men Type: BLOOD SPECIMEN Ordering Facility: [facility] [place] Address: [address] [place] [address] Performed By: #### P TTAC #### [facility] CLIA [id number] [address] [place] [address] [place] O2 THERAPY Positive Normal [facility] Comment on above: Order Comment: Speci men Type: BLOOD SPECIMEN Ordering Facility: [facility] [place] Address: [address] [place] [address] Performed By: #### P TTAC #### [facility] CLIA [id number] [address] [place] [address] [place] Oxygen (BldV) [Partial pressure] 107 mm[Hg] High 35-45 [facility] Comment on above: Order Comment: Speci men Type: BLOOD SPECIMEN Ordering Facility: [facility] [place] Address: [address] [place] [address] Performed By: #### P TTAC #### [facility] CLIA [id number] [address] [place] [address] [place] Oxygen adjusted to patient's actual temperature (BldV) [Partial pressure] Normal [facility] Comment on above: Order Comment: Speci men Type: BLOOD SPECIMEN Ordering Facility: [facility] [place] Address: [address] [place] [address] Performed By: #### P TTAC #### [facility] CLIA [id number] [address] [place] [address] [place] Oxygen saturation in Venous blood 98 % High 60-85 [facility] Comment on above: Order Comment: Speci men Type: BLOOD SPECIMEN Ordering Facility: [facility] [place] Address: [address] [place] [address] Performed By: #### P TTAC #### [facility] CLIA [id number] [address] [place] [address] [place] Oxyhemoglobin (BldV) [Mass fraction] 94 % High 60-85 [facility] Comment on above: Order Comment: Speci men Type: BLOOD SPECIMEN Ordering Facility: [facility] [place] Address: [address] [place] [address] Performed By: #### P TTAC #### [facility] CLIA [id number] [address] [place] [address] [place] pH (BldV) 7.35 [pH] Normal 7.32-7.42 [facility] Comment on above: Order Comment: Speci men Type: BLOOD SPECIMEN Ordering Facility: [facility] [place] Address: [address] [place] [address] Performed By: #### P TTAC #### [facility] CLIA [id number] [address] [place] [address] [place] pH adjusted to patient's actual temperature (BldV) Normal [facility] Comment on above: Order Comment: Speci men Type: BLOOD SPECIMEN Ordering Facility: [facility] [place] Address: [address] [place] [address] Performed By: #### P TTAC #### [facility] IA [id number] [address] [place] [address] [place] Potassium [Moles/Vol] 4.1 mmol/L Normal 3.5-5.0 [facility] Comment on above: Order Comment: Speci men Type: BLOOD SPECIMEN Ordering Facility: [facility] [place] Address: [address] [place] [address] Performed By: #### P TTAC #### [facility] CLIA [id number] [address] [place] [address] [place] Sodium [Moles/Vol] 140 mmol/L Normal 136-144 [facility] Comment on above: Order Comment: Speci men Type: BLOOD SPECIMEN Ordering Facility: [facility] [place] Address: [address] [place] [address] Performed By: #### P TTAC #### [facility] CLIA [id number] [place] HISTORY PHYSICALon HISTORY PHYSICAL HNO ID: [id number] Author: ANUPAMA ALFRED MD Service: Critical Care Author Type: Nurse Practitioner Type: H&P Filed: 10/25/2023 03:12 Note Text: Attestation signed by Anupama Alfred MD at 10/25/2023 3:12 AM [facility] STAFF PHYSICIAN NOTE OF PERSONAL INVOLVEMENT [...] of brielle (more content not included)... Normal [facility] Lipid 1996 panelon 4 Cholesterol [Mass/Vol] 104 mg/dL Normal <200 [facility] Comment on above: Order Comment: [place] Type: BLOOD SPECIMEN Ordering Facility: [facility] [place] Address: [address] [place] [address] Result Comment: <200 mg/dL, Desirable 200-239 mg/dL, Borderline high >239 mg/dL, High Performed By: #### 1 9123-9, 27551-5 #### [facility] CLIA [id number] [address] [place] [address] [place] Cholesterol in HDL [Mass/Vol] 61 mg/dL Normal >39 [facility] Comment on above: Order Comment: [place] Type: BLOOD SPECIMEN Ordering Facility: [facility] [place] Address: [address] [place] [address] Result Comment: 40-5 9 mg/dL, Acceptable >59 mg/dL, High: Negative risk factor for coronary heart disease <40 mg/dL, Low: Positive risk factor for coronary heart disease Performed By: #### 1 9123-9, 07262-0 #### [facility] CLIA [id number] [address] [place] [address] [place] Cholesterol in LDL [Mass/Vol] 33 mg/dL Normal <100 [facility] Comment on above: Order Comment: [place] Type: BLOOD SPECIMEN Ordering Facility: [facility] [place] Address: [address] [place] [address] Result Comment: <100 mg/dL, Optimal 100-129 mg/dL, Near optimal/above optimal 130-159 mg/dL, Borderline high 160-189 mg/dL, High >189 mg/dL, Very high Secondary prevention optimal LDL Cholesterol levels are recommended to be < 70 mg/dL Performed By: #### 1 9, 96797-5 #### [facility] CLIA [id number] [address] [place] [address] Cholesterol in LDL/Cholesterol in HDL [Mass ratio] 0.54 {ratio} Normal <2.54 [facility] Comment on above: Order Comment: [place] Type: BLOOD SPECIMEN Ordering Facility: [facility] [place] Address: [address] [place] [address] Result Comment: Refe rence: 1. National Cholesterol Education Program ATP III Guideline At-A-Glance Quick Desk Reference: National Heart, Lung, and Blood [place]. National Institutes of Health. 2001: NIH Publication No. 01-3305. 2. An International Atherosclerosis Society position paper: global recommendations for the management of dyslipidemia: executive summary, Atherosclerosis. 2014: 232(2):410-413. Performed By: #### 1 91239, 63449-3 #### [facility] CLIA [id number] [address] [place] [address] [place] Cholesterol in VLDL [Mass/Vol] 10 mg/dL Normal <30 [facility] Comment on above: Order Comment: Madonna chapis Type: BLOOD SPECIMEN Ordering Facility: [facility] [place] Address: [address] [place] [address] Performed By: #### 1 9123-9, 36389-9 #### [facility] CLIA [id number] [address] [place] [address] [place] Cholesterol non HDL [Mass/Vol] 43 mg/dL Normal <130 [facility] Comment on above: Order Comment: Speci men Type: BLOOD SPECIMEN Ordering Facility: [facility] [place] Address: [address] [place] [address] Result Comment: <130 mg/dL, Optimal 130-159 mg/dL, Near optimal/above optimal 160-189 mg/dL, Borderline high 190-219 mg/dL, High >219 mg/dL, Very high Secondary prevention optimal non HDL Cholesterol levels are recommended to be <100 mg/dL Performed By: #### 1 9123-9, 33369-9 #### [facility] CLIA [id number] [address] [place] [address] [place] Cholesterol.total/Ch olesterol in HDL [Mass ratio] 1.70 {ratio} Normal <5.10 [facility] Comment on above: Order Comment: Speci men Type: BLOOD SPECIMEN Ordering Facility: [facility] [place] Address: [address] [place] [address] Performed By: #### 1 9123-9, 61174-3 #### [facility] CLIA [id number] [address] [place] [address] [place] FASTING TIME 12 hrs Normal [facility] Comment on above: Order Comment: Speci men Type: BLOOD SPECIMEN Ordering Facility: [facility] [place] Address: [address] [place] [address] Performed By: #### 1 9123-9, 80605-3 #### [facility] CLIA [id number] [address] [place] [address] [place] Triglyceride [Mass/Vol] 52 mg/dL Normal <150 [facility] Comment on above: Order Comment: Speci men Type: BLOOD SPECIMEN Ordering Facility: [facility] [place] Address: [address] [place] [address] Result Comment: <150 mg/dL, Normal 150-199 mg/dL, Borderline high 200-499 mg/dL, High >499 mg/dL, Very high Performed By: #### 1 9123-9, 48468-5 #### [facility] CLIA [id number] [address] [place] [address] [place] Magnesium SerPl-mCncon 10-24 Magnesium [Mass/Vol] 2.0 mg/dL Normal 1.7-2.3 [facility] Comment on above: Order Comment: Speci men Type: BLOOD SPECIMEN Ordering Facility: [facility] [place] Address: [address] [place] [address] Performed By: #### 1 9123-9, 94783-6 #### [facility] CLIA [id number] [address] [place] [address] [place] Renal function 2000 panelon 10-25-2023 Albumin [Mass/Vol] 3.4 g/dL Low 3.9-4.9 [facility] Comment on above: Order Comment: Speci men Type: BLOOD SPECIMEN Ordering Facility: [facility] [place] Address: [address] [place] [address] Performed By: #### 1 9123-9, 66727-4 #### [facility] CLIA [id number] [address] [place] [address] [place] Anion gap [Moles/Vol] 10 mmol/L Normal 9-18 [facility] Comment on above: Order Comment: Speci men Type: BLOOD SPECIMEN Ordering Facility: [facility] [place] Address: [address] [place] [address] Performed By: #### 1 9123-9, 15357-7 #### [facility] CLIA [id number] [address] [place] [address] [place] Calcium [Mass/Vol] 9.1 mg/dL Normal 8.5-10.2 [facility] Comment on above: Order Comment: Speci men Type: BLOOD SPECIMEN Ordering Facility: [facility] [place] Address: [address] [place] [address] Performed By: #### 1 9123-9, 30235-5 #### [facility] CLIA [id number] [address] [place] [address] [place] Chloride [Moles/Vol] 102 mmol/L Normal 97-105 [facility] Comment on above: Order Comment: Speci men Type: BLOOD SPECIMEN Ordering Facility: [facility] [place] Address: [address] [place] [address] Performed By: #### 1 9123-9, 98625-0 #### [facility] CLIA [id number] [address] [place] [address] [place] CO2 [Moles/Vol] 31 mmol/L High 22-30 [facility] Comment on above: Order Comment: Speci men Type: BLOOD SPECIMEN Ordering Facility: [facility] [place] Address: [address] [place] [address] Performed By: #### 1 9123-9, 40151-3 #### [facility] CLIA [id number] [address] [place] [address] [place] Creatinine [Mass/Vol] 1.89 mg/dL High 0.73-1.22 [facility] Comment on above: Order Comment: Speci men Type: BLOOD SPECIMEN Ordering Facility: [facility] [place] Address: [address] [place] [address] Performed By: #### 1 9123-9, 54368-1 #### [facility] CLIA [id number] [address] [place] [address] [place] Creatinine and Glomerular filtration rate.predicted panel (S/P/Bld) 39 mL/min/1.73m??? Low >=60 [facility] Comment on above: Order Comment: Speci men Type: BLOOD SPECIMEN Ordering Facility: [facility] [place] Address: [address] [place] [address] Result Comment: Meredith mated Glomerular Filtration Rate [...] actual GFR. Performed By: #### 1 9123-9, 19214-3 #### [facility] CLIA [id number] [place], [place] [address] [place] Glucose [Mass/Vol] 149 mg/dL High 74-99 [facility] Comment on above: Order Comment: Speci men Type: BLOOD SPECIMEN Ordering Facility: [facility] [place] Address: [address] [place] [address] Result Comment: The [place] Diabetes Association (ADA) provides guidance for cutoff [...] Standards of Medical Care in Diabetes 2016, [place] [employer]. Diabetes Care. 2016.39(Suppl 1). Performed By: #### 1 9123-9, 60998-9 #### [facility] CLIA [id number] [address] [place] [address] [place] Phosphate [Mass/Vol] 4.4 mg/dL Normal 2.7-4.8 [facility] Comment on above: Order Comment: [place] Type: BLOOD SPECIMEN Ordering Facility: [facility] [place] Address: [address] [place] [address] Performed By: #### 1 9123-9, 91393-6 #### [facility] CLIA [id number] [address] [place] [address] [place] Potassium [Moles/Vol] 4.3 mmol/L Normal 3.7-5.1 [facility] Comment on above: Order Comment: Speci men Type: BLOOD SPECIMEN Ordering Facility: [facility] [place] Address: [address] [place] [address] Performed By: #### 1 9123-9, 33631-6 #### [facility] CLIA [id number] [address] [place] [address] [place] Sodium [Moles/Vol] 143 mmol/L Normal 136-144 [facility] Comment on above: Order Comment: Kent[place] men Type: BLOOD SPECIMEN Ordering Facility: [facility] [place] Address: [address] [place] [address] Performed By: #### 1 9123-9, 46910-4 #### [facility] CLIA [id number] [address] [place] [id number] [place] Urea nitrogen [Mass/Vol] 54 mg/dL High 9-24 [facility] Comment on above: Order Comment: Speci men Type: BLOOD SPECIMEN Ordering Facility: [facility] [place] Address: [address] [place] [address] Performed By: #### 1 9123-9, 79352-6 #### [facility] CLIA [id number] [place] [address] [place] STAPH AUREUS PCRon S. aureus and MRSA panel ERIBERTO+probe (Nose) Normal Negative [facility] Comment on above: Order Comment: Speci men Type: SWAB OF INTERNAL NOSEOrdering Facility: [facility] [place] Address: [address] [place] [address] Result Comment: Nega tive for Staphylococcus aureus by PCR. Negative for MRSA by PCR Performed By: #### S APCR ####[facility] [id number] [place] [address] [place] XR CHEST 1V [...] left pleural effusion demonstrating slight interval progression. Room Service Food Service Attendant: SAM Transcribe Date/Time: Oct 25 2023 7:29A Dictated by : KASHIF PIERSON MD This examination was interpreted and the report reviewed and electronically signed by: KASHIF PIERSON MD on Oct 25 2023 7:30AM EST [id number] [facility] ALLIED HEALTHon 10-24-2023 ALLIED HEALTH HNO ID: [id number] Author: ABDIFATAH PAGE RDMS Service: Radiology Author [...] PATIENT PRESENTS WITH AN IMPLANTABLE OR ATTACHED PETROPHYSICIST: No RADIOLOGY DEPARTMENT: Ultrasound PERIPHERAL IV DATA: Not applicable SIGNED BY: Abdifatah Pgae RDMS October 24, 2023 4:59 PM [facility] ARTERIAL BLOOD GASESon 10-23 Base excess Calc (Bld) [Moles/Vol] 6 mmol/L High 0-2 [facility] Comment on above: Order Comment: Speci men Type: BLOOD SPECIMEN Ordering Facility: [facility] [place] Address: [address] [place] [address] Performed By: #### 1 9123-9, 70905020-6 #### [facility] CLIA [id number] [address] [place] [address] [place] Body temperature 98.6 [degF] Normal [facility] Comment on above: Order Comment: Speci men Type: BLOOD SPECIMEN Ordering Facility: [facility] [place] Address: [address] [place] [address] Performed By: #### 1 9123-9, 37007758-9 #### [facility] CLIA [id number] [address] [place] [address] [place] Calcium.ionized (Bld) [Mass/Vol] 1.23 mmol/L Normal 1.08-1.30 [facility] Comment on above: Order Comment: Speci men Type: BLOOD SPECIMEN Ordering Facility: [facility] [place] Address: [address] [place] [address] Performed By: #### 1 9123-9, 33534-6 #### [facility] CLIA [id number] [address] [place] [address] [place] Calcium.ionized adjusted to pH 7.4 (BldA) [Moles/Vol] 1.16 mmol/L Normal 1.08-1.30 [facility] Comment on above: Order Comment: Speci men Type: BLOOD SPECIMEN Ordering Facility: [facility] [place] Address: [address] [place] [address] Performed By: #### 1 9123-9, 57237-5 #### [facility] CLIA [id number] [address] [place] [address] [place] Carboxyhemoglobin (BldA) [Mass fraction] 1.3 % Normal 0.0-2.0 [facility] Comment on above: Order Comment: Speci men Type: BLOOD SPECIMEN Ordering Facility: [facility] [place] Address: [address] [place] [address] Result Comment: Carb oxyhemoglobin Reference Range for Smokers: 2.0-8.0% Performed By: #### 1 9123-9, 21779-9 #### [facility] CLIA [id number] [address] [place] [address] [place] Chloride [Moles/Vol] 104 mmol/L Normal 97-105 [facility] Comment on above: Order Comment: Speci men Type: BLOOD SPECIMEN Ordering Facility: [facility] [place] Address: [address] [place] [address] Performed By: #### 1 9123-9, 30820-6 #### [facility] CLIA [id number] [address] [place] [address] [place] CO2 (Bld) [Partial pressure] 72 mm Hg High 36-46 [facility] Comment on above: Order Comment: Speci men Type: BLOOD SPECIMEN Ordering Facility: [facility] [place] Address: [facility] [place] [address] Performed By: #### 1 9123-9, 28439-6 #### [facility] CLIA [id number] [address] [place] [address] [place] Glucose [Mass/Vol] 88 mg/dL Normal 60-105 [facility] Comment on above: Order Comment: Speci men Type: BLOOD SPECIMEN Ordering Facility: [facility] [place] Address: [address] [place] [address] Performed By: #### 1 9123-9, 09647-5 #### [facility] CLIA [id number] [address] [place] [address] [place] HCO3 (Bld) [Moles/Vol] 34 mmol/L High 22-26 [facility] Comment on above: Order Comment: Speci men Type: BLOOD SPECIMEN Ordering Facility: [facility] [place] Address: [address] [place] [address] Performed By: #### 1 9123-9, 31744-1 #### [facility] CLIA [id number] [address] [place] [address] [place] Hematocrit (Bld) [Volume fraction] 38.4 % Low 39.0-51.0 [facility] Comment on above: Order Comment: Speci men Type: BLOOD SPECIMEN Ordering Facility: [facility] [place] Address: [address] [place] [address] Performed By: #### 1 9123-9, #### [facility] CLIA [id number] [address] [place] [address] [place] Hemoglobin (Bld) [Mass/Vol] 12.5 g/dL Low 13.0-17.0 [facility] Comment on above: Order Comment: Speci men Type: BLOOD SPECIMEN Ordering Facility: [facility] [place] Address: [address] [place] [address] Performed By: #### 1 9123-9, 31533-1 #### [facility] CLIA [id number] [address] [place] [address] [place] Lactate [Moles/Vol] 0.9 mmol/L Normal 0.5-2.2 [facility] Comment on above: Order Comment: Speci men Type: BLOOD SPECIMEN Ordering Facility: [facility] [place] Address: [address] [place] [address] Performed By: #### 1 23-9, 57346-6 #### [facility] CLIA [id number] [address] [place] [address] [place] 4 Liters/min Normal [facility] Comment on above: Order Comment: Speci men Type: BLOOD SPECIMEN Ordering Facility: [facility] [place] Address: [address] [place] [address] Performed By: #### 1 9123-04, 27582-1 #### [facility] CLIA [id number] [address] [place] [address] [place] Methemoglobin (Bld) [Mass fraction] 1.3 % Normal 0.0-1.5 [facility] Comment on above: Order Comment: Speci men Type: BLOOD SPECIMEN Ordering Facility: [facility] [place] Address: [address] [place] [address] Performed By: #### 1 239, 43968-3 #### [facility] CLIA [id number] [address] [place] [address] [place] O2 THERAPY NC = Nasal Cannula Normal [facility] Comment on above: Order Comment: Speci men Type: BLOOD SPECIMEN Ordering Facility: [facility] [place] Address: [address] [place] [address] Performed By: #### 1 9123-04, 98374-7 #### [facility] CLIA [id number] [address] [place] [address] [place] Oxygen (Bld) [Partial pressure] 73 mm Hg Low 85-95 [facility] Comment on above: Order Comment: Speci men Type: BLOOD SPECIMEN Ordering Facility: [facility] [place] Address: [address] [place] [address] Performed By: #### 1 4223-9, 70310-2 #### [facility] CLIA [id number] [address] [place] [address] [place] Oxyhemoglobin (BldA) [Mass fraction] 91 % Low 95-98 [facility] Comment on above: Order Comment: Speci men Type: BLOOD SPECIMEN Ordering Facility: [facility] [place] Address: [address] [place] [address] Performed By: #### 1 9123-9, 30478-5 #### [facility] CLIA [id number] [address] [place] [address] [place] pH (Bld) 7.30 [pH] Low 7.35-7.45 [facility] Comment on above: Order Comment: Speci men Type: BLOOD SPECIMEN Ordering Facility: [facility] [place] Address: [address] [place] [address] Performed By: #### 1 9123-9, 23147-8 #### [facility] CLIA [id number] [address] [place] [address] [place] Potassium [Moles/Vol] 4.2 mmol/L Normal 3.5-5.0 [facility] Comment on above: Order Comment: Speci men Type: BLOOD SPECIMEN Ordering Facility: [facility] [place] Address: [address] [place] [address] Performed By: #### 1 9123-9, 16639-4 #### [facility] CLIA [id number] [address] [place] [address] [place] Sodium [Moles/Vol] 141 mmol/L Normal 136-144 [facility] Comment on above: Order Comment: Speci men Type: BLOOD SPECIMEN Ordering Facility: [facility] [place] Address: [address] [place] [address] Performed By: #### 1 9123-9, 88029-4 #### [facility] CLIA [id number] [address] [place] [address] [place] Base excess Calc (Bld) [Moles/Vol] 5 mmol/L High 0-2 [facility] Comment on above: Order Comment: Speci men Type: BLOOD SPECIMEN Ordering Facility: [facility] [place] Address: [address] [place] [address] Performed By: #### P TTAC #### [facility] CLIA [id number] [address] [place] [address] [place] Body temperature 98.6 [degF] Normal [facility] Comment on above: Order Comment: Speci men Type: BLOOD SPECIMEN Ordering Facility: [facility] [place] Address: [address] [place] [address] Performed By: #### P TTAC #### [facility] CLIA [id number] [address] [place] [address] [place] Calcium.ionized (Bld) [Mass/Vol] 1.22 mmol/L Normal 1.08-1.30 [facility] Comment on above: Order Comment: Speci men Type: BLOOD SPECIMEN Ordering Facility: [facility] [place] Address: [address] [place] [address] Performed By: #### P TTAC #### [facility] CLIA [id number] [address] [place] [address] [place] Calcium.ionized adjusted to pH 7.4 (BldA) [Moles/Vol] 1.15 mmol/L Normal 1.08-1.30 [facility] Comment on above: Order Comment: Speci men Type: BLOOD SPECIMEN Ordering Facility: [facility] [place] Address: [address] [place] [address] Performed By: #### P TTAC #### [facility] CLIA [id number] [address] [place] [address] [place] Carboxyhemoglobin (BldA) [Mass fraction] 1.7 % Normal 0.0-2.0 [facility] Comment on above: Order Comment: Speci men Type: BLOOD SPECIMEN Ordering Facility: [facility] [place] Address: [address] [place] [address] Result Comment: Carb oxyhemoglobin Reference Range for Smokers: 2.0-8.0% Performed By: #### P TTAC #### [facility] CLIA [id number] [address] [place] [address] [place] Chloride [Moles/Vol] 101 mmol/L Normal 97-105 [facility] Comment on above: Order Comment: Speci men Type: BLOOD SPECIMEN Ordering Facility: [facility] [place] Address: [address] [place] [address] Performed By: #### P TTAC #### [facility] CLIA [id number] [address] [place] [address] [place] CO2 (Bld) [Partial pressure] 70 mm Hg High 36-46 [facility] Comment on above: Order Comment: Speci men Type: BLOOD SPECIMEN Ordering Facility: [facility] [place] Address: [address] [place] [address] Performed By: #### P TTAC #### [facility] CLIA [id number] [address] [place] [address] [place] Glucose [Mass/Vol] 210 mg/dL High 60-105 [facility] Comment on above: Order Comment: Speci men Type: BLOOD SPECIMEN Ordering Facility: [facility] [place] Address: [address] [place] [address] Performed By: #### P TTAC #### [facility] CLIA [id number] [address] [place] [address] [place] HCO3 (Bld) [Moles/Vol] 34 mmol/L High 22-26 [facility] Comment on above: Order Comment: Speci men Type: BLOOD SPECIMEN Ordering Facility: [facility] [place] Address: [address] [place] [address] Performed By: #### P TTAC #### [facility] CLIA [id number] [address] [place] [address] [place] Hematocrit (Bld) [Volume fraction] 37.5 % Low 39.0-51.0 [facility] Comment on above: Order Comment: Speci men Type: BLOOD SPECIMEN Ordering Facility: [facility] [place] Address: [address] [place] [address] Performed By: #### P TTAC #### [facility] CLIA [id number] [address] [place] [address] [place] Hemoglobin (Bld) [Mass/Vol] 12.2 g/dL Low 13.0-17.0 [facility] Comment on above: Order Comment: Speci men Type: BLOOD SPECIMEN Ordering Facility: [facility] [place] Address: [address] [place] [address] Performed By: #### P TTAC #### [facility] CLIA [id number] [address] [place] [address] [place] Lactate [Moles/Vol] 1.4 mmol/L Normal 0.5-2.2 [facility] Comment on above: Order Comment: Speci men Type: BLOOD SPECIMEN Ordering Facility: [facility] [place] Address: [address] [place] [address] Performed By: #### P TTAC #### [facility] CLIA [id number] [address] [place] [address] [place] L[place]ERS 6 Liters/min Normal [facility] Comment on above: Order Comment: Speci men Type: BLOOD SPECIMEN Ordering Facility: [facility] [place] Address: [address] [place] [address] Performed By: #### P TTAC #### [facility] CLIA [id number] [address] [place] [address] [place] Methemoglobin (Bld) [Mass fraction] 0.7 % Normal 0.0-1.5 [facility] Comment on above: Order Comment: Speci men Type: BLOOD SPECIMEN Ordering Facility: [facility] [place] Address: [address] [place] [address] Performed By: #### P TTAC #### [facility] CLIA [id number] [address] [place] [address] [place] O2 THERAPY NC = Nasal Cannula Normal [facility] Comment on above: Order Comment: Speci men Type: BLOOD SPECIMEN Ordering Facility: [facility] [place] Address: [address] [place] [address] Performed By: #### P TTAC #### [facility] CLIA [id number] [address] [place] [address] [place] Oxygen (Bld) [Partial pressure] 85 mm Hg Normal 85-95 [facility] Comment on above: Order Comment: Speci men Type: BLOOD SPECIMEN Ordering Facility: [facility] [place] Address: [address] [place] [address] Performed By: #### P TTAC #### [facility] CLIA [id number] [address] [place] [address] [place] Oxyhemoglobin (BldA) [Mass fraction] 94 % Low 95-98 [facility] Comment on above: Order Comment: Speci men Type: BLOOD SPECIMEN Ordering Facility: [facility] [place] Address: [address] [place] [address] Performed By: #### P TTAC #### [facility] CLIA [id number] [address] [place] [address] [place] pH (Bld) 7.30 [pH] Low 7.35-7.45 [facility] Comment on above: Order Comment: Speci men Type: BLOOD SPECIMEN Ordering Facility: [facility] [place] Address: [address] [place] [address] Performed By: #### P TTAC #### [facility] CLIA [id number] [address] [place] [address] [place] Potassium [Moles/Vol] 4.0 mmol/L Normal 3.5-5.0 [facility] Comment on above: Order Comment: Speci men Type: BLOOD SPECIMEN Ordering Facility: [facility] [place] Address: [address] [place] [address] Performed By: #### P TTAC #### [facility] CLIA [id number] [address] [place] [address] [place] Sodium [Moles/Vol] 141 mmol/L Normal 136-144 [facility] Comment on above: Order Comment: Speci men Type: BLOOD SPECIMEN Ordering Facility: [facility] [place] Address: [address] [place] [address] Performed By: #### P TTAC #### [facility] CLIA [id number] [address] [place] [address] [place] Bacteria Ur Culton 4 Bacteria identified Cx Nom (U) ORGANISM ID: 1 >=100,000 CFU/ml Mixed microbiota No further workup. Mixed microbiota can be due to???urine???contamin ation with skin bacteria at time of collection or presence of a long-term urinary catheter. If a new culture is needed, please consider re-education of the patient on proper midstream collection technique or straight catheterization for???urine???collect ion. Normal [facility] Comment on above: Performed By: #### 6 30-4 ####[facility] [id number] [facility] [address] [address] [place] Basic metabolic 2000 panelon 10-24-2023 Anion gap [Moles/Vol] 11 mmol/L Normal 9-18 [facility] Comment on above: Order Comment: Speci men Type: BLOOD SPECIMEN Ordering Facility: [facility] [place] Address: [address] [place] [address] Performed By: #### 2 4321-2, HSTNT #### [facility] CLIA [id number] [address] [place] [address] [place] Calcium [Mass/Vol] 8.7 mg/dL Normal 8.5-10.2 [facility] Comment on above: Order Comment: Speci men Type: BLOOD SPECIMEN Ordering Facility: [facility] [place] Address: [address] [place] [address] Performed By: #### 2 4321-2, HSTNT #### [facility] CLIA [id number] [address] [place] [address] [place] Chloride [Moles/Vol] 101 mmol/L Normal 97-105 [facility] Comment on above: Order Comment: Speci men Type: BLOOD SPECIMEN Ordering Facility: [facility] [place] Address: [address] [place] [address] Performed By: #### 2 4321-2, HSTNT #### [facility] CLIA [id number] [address] [place] [address] [place] CO2 [Moles/Vol] 30 mmol/L Normal 22-30 [facility] Comment on above: Order Comment: Speci men Type: BLOOD SPECIMEN Ordering Facility: [facility] [place] Address: [address] [place] [address] Performed By: #### 2 4321-2, HSTNT #### [facility] CLIA [id number] [address] [place] [address] [place] Creatinine [Mass/Vol] 1.82 mg/dL High 0.73-1.22 [facility] Comment on above: Order Comment: [place] Type: BLOOD SPECIMEN Ordering Facility: [facility] [place] Address: [address] [place] [address] Performed By: #### 2 4321-2, HSTNT #### [facility] CLIA [id number] [address] [place] [address] [place] Creatinine and Glomerular filtration rate.predicted panel (S/P/Bld) 41 mL/min/1.73m??? Low >=60 [facility] Comment on above: Order Comment: [place] Type: BLOOD SPECIMEN Ordering Facility: [facility] [place] Address: [address] [place] [address] Result Comment: Meredith mated Glomerular Filtration Rate [...] Performed By: #### 2 4321-2, HSTNT #### [facility] CLIA [id number] [place], [place] [address] [place] Glucose [Mass/Vol] 229 mg/dL High 74-99 [facility] Comment on above: Order Comment: [place] Type: BLOOD SPECIMEN Ordering Facility: [facility] [place] Address: [address] [place] [address] Result Comment: The [place] [employer] (ADA) provides guidance for cutoff [...] Standards of Medical Care in Diabetes 2016, [place] [employer]. Diabetes Care. 2016.39(Suppl 1). Performed By: #### 2 4321-2, HSTNT #### [facility] CLIA [id number] [address] [place] [address] [place] Potassium [Moles/Vol] 4.2 mmol/L Normal 3.7-5.1 [facility] Comment on above: Order Comment: Speci men Type: BLOOD SPECIMEN Ordering Facility: [facility] [place] Address: [address] [place] [address] Performed By: #### 2 4321-2, HSTNT #### [facility] CLIA [id number] [address] [place] [address] [place] Sodium [Moles/Vol] 142 mmol/L Normal 136-144 [facility] Comment on above: Order Comment: Speci men Type: BLOOD SPECIMEN Ordering Facility: [facility] [place] Address: [address] [place] [address] Performed By: #### 2 4321-2, HSTNT #### [facility] CLIA [id number] [address] [place] [address] [place] Urea nitrogen [Mass/Vol] 58 mg/dL High 9-24 [facility] Comment on above: Order Comment: Speci men Type: BLOOD SPECIMEN Ordering Facility: [facility] [place] Address: [address] [place] [address] Performed By: #### 2 4321-2, HSTNT #### [facility] CLIA [id number] [address] [place] [address] [place] CBC panel Auto (Bld)on 10-23 Erythrocyte distribution width (RBC) [Ratio] 16.4 % High 11.5-15.0 [facility] Comment on above: Order Comment: Speci men Type: BLOOD SPECIMEN Ordering Facility: [facility] [place] Address: [address] [place] [address] Performed By: #### 1 9123-9, 44630-1 #### [facility] CLIA [id number] [place] Hematocrit (Bld) [Volume fraction] 41.0 % Normal 39.0-51.0 [facility] Comment on above: Order Comment: Speci men Type: BLOOD SPECIMEN Ordering Facility: [facility] [place] Address: [address] [place] [address] Performed By: #### 1 9123-9, 62252-2 #### [facility] CLIA [id number] [address] [place] [address] [place] Hemoglobin (Bld) [Mass/Vol] 12.4 g/dL Low 13.0-17.0 [facility] Comment on above: Order Comment: Speci men Type: BLOOD SPECIMEN Ordering Facility: [facility] [place] Address: [address] [place] [address] Performed By: #### 1 9123-9, 58489-1 #### [facility] CLIA [id number] [address] [place] [address] [place] MCH (RBC) [Entitic mass] 26.9 pg Normal 26.0-34.0 [facility] Comment on above: Order Comment: Speci men Type: BLOOD SPECIMEN Ordering Facility: [facility] [place] Address: [address] [place] [address] Performed By: #### 1 2723-9, 62916-0 #### [facility] CLIA [id number] [address] [place] [address] [place] MCHC (RBC) [Mass/Vol] 30.2 g/dL Low 30.5-36.0 [facility] Comment on above: Order Comment: Speci men Type: BLOOD SPECIMEN Ordering Facility: [facility] [place] Address: [address] [place] [address] Performed By: #### 1 6323-9, 86393-6 #### [facility] CLIA [id number] [address] [place] [address] [place] MCV (RBC) [Entitic vol] 88.9 fL Normal 80.0-100.0 [facility] Comment on above: Order Comment: Speci men Type: BLOOD SPECIMEN Ordering Facility: [facility] [place] Address: [address] [place] [address] Performed By: #### 1 23-9, 90867-2 #### [facility] CLIA [id number] [address] [place] [address] [place] Nucleated RBC (Bld) [#/Vol] 10*3/uL Normal <0.01 [facility] Comment on above: Order Comment: Speci men Type: BLOOD SPECIMEN Ordering Facility: [facility] [place] Address: [address] [place] [address] Performed By: #### 1 23-9, 42830-1 #### [facility] CLIA [id number] [address] [place] [address] [place] Platelet mean volume (Bld) [Entitic vol] 8.8 fL Low 9.0-12.7 [facility] Comment on above: Order Comment: Speci men Type: BLOOD SPECIMEN Ordering Facility: [facility] [place] Address: [address] [place] [address] Performed By: #### 1 239, 20052-5 #### [facility] CLIA [id number] [address] [place] [address] [place] Platelets (Bld) [#/Vol] 240 10*3/uL Normal 150-400 [facility] Comment on above: Order Comment: Speci men Type: BLOOD SPECIMEN Ordering Facility: [facility] [place] Address: [address] [place] [address] Performed By: #### 1 9123-9, 22176-8 #### [facility] CLIA [id number] [address] [place] [address] [place] RBC (Bld) [#/Vol] 4.61 10*6/uL Normal 4.20-6.00 [facility] Comment on above: Order Comment: Speci men Type: BLOOD SPECIMEN Ordering Facility: [facility] [place] Address: [address] [place] [address] Performed By: #### 1 9123-9, 49526-5 #### [facility] CLIA [id number] [address] [place] [address] [place] WBC (Bld) [#/Vol] 7.15 10*3/uL Normal 3.70-11.00 [facility] Comment on above: Order Comment: Speci men Type: BLOOD SPECIMEN Ordering Facility: [facility] [place] Address: [address] [place] [address] Performed By: #### 1 9123-9, 71415-4 #### [facility] CLIA [id number] [address] [place] [address] [place] CONSULTon 10-24-2023 CONSULT HNO ID: [id number] Author: NAUN COUCH MD Service: Nephrology Author [...] amputation admitted from home who presented to [facility] with complaints of worsening shortness of breath, bilateral lower extremity edema and ~ 10lb weight gain in the last few weeks. Patient reports multiple hospital admissions in 2023 at [facility] in [place] for fluid overload. He states he usually [...] MEALS AND HS (more content not included)... [facility] CONSULT HNO ID: [id number] Author: FLOR BE RN Service: ? Author [...] foot. Patient goes to wound clinic in [place] for care last dressing used was Temi. [...] 10/24/2023 9:38 AM Wound Image Site Assessment Red;[place] Nora-Wound Assessment Calloused Shape oval Wound Length [...] Review under the Scanned Docs tab in [email or web address]. The purpose of the photo(s) is to optimize the patient's medical care and allow (more content not included)... [facility] CONSULT HNO ID: [id number] Author: NERY MOTTA MD Service: Cardiovascular Medicine Author Type: Physician Type: Consults Filed: 10/24/2023 17:43 Note Text: [facility] CARDI[facility]ASCULAR [facility]ICINE CONSULT NOTE (Template ID [id number]) Nicole Lora [id number] PRIMARY SERVICE: Internal Medicine CONSULTING SERVICE: Cardiovascular Medicine: General Consults DATE OF ADMISSION: 10/23/2023 DATE OF CONSULT: 10/24/2023 REASON FOR CONSULT Elevated troponins HISTORY OF PRESENT ILLNESS Nicole Lora is a 63 year old male PMH of CKD 3, chronic respiratory failure, morbid obesity, insulin dependent diabetes, TC, Asthma, left forefoot amputation, lives in [place], who was admitted for volume overload. He [...] metFORMIN 500 m (more content not included)... [facility] CONSULT PROGon 10-24-2023 CONSULT PROG HNO ID: [id number] Author: JOSE HARMON RPh Service: Pharmacy Author [...] have any questions, please contact pharmacy at [phone]. Estimated Creatinine Clearance: 60.4 mL/min (A) (based [...] 180.3 cm (5' 11 ) Jose Harmon RPh October 24, 2023 3:09 AM [facility] Chloride ?Tm Ur-sCncon 10-23 Chloride Unsp time (U) [Moles/Vol] 61 mmol/L Normal 16-250 [facility] Comment on above: Order Comment: Speci men Type: BLOOD SPECIMEN Ordering Facility: [facility] [place] Address: [address] [place] [address] Performed By: #### 1 9123-9, 93123-4 #### [facility] CLIA [id number] [address] [place] [id number] [place] D dimer FEU PPP-mCncon 10-23 Fibrin D-dimer FEU (PPP) [Mass/Vol] 2400 ng/mL FEU High <500 [facility] Comment on above: Order Comment: Speci men Type: BLOOD SPECIMENOrdering Facility: [facility] [place] Address: [address] [place] [address] Performed By: #### 4 8065-7, 50704-8, PTTAC ####[facility] [id number] [place] [id number] [place] [facility] Fibrin D-dimer FEU (PPP) [Ma ss/Vol]on 10-24-2023 D DIMER AGE-RELATED CUTOFF 640 ng/mL FEU Normal [facility] Comment on above: Order Comment: Speci men Type: BLOOD SPECIMENOrdering Facility: [facility] [place] Address: [address] [place] [address] Performed By: #### 4 8065-7, 21258-5, PTTAC ####[facility] [id number] [place] [id number] [facility] Gas and Carbon monoxide pane l (BldV)on 10-24-2023 Base excess Calc (BldV) [Moles/Vol] 4 mmol/L High 0-2 [facility] Comment on above: Order Comment: Speci men Type: BLOOD SPECIMEN Ordering Facility: [facility] [place] Address: [address] [place] [address] Performed By: #### 1 9123-9, 38696-9 #### [facility] CLIA [id number] [address] [place] [id number] [place] Body temperature 32 [degF] Normal [facility] Comment on above: Order Comment: Speci men Type: BLOOD SPECIMEN Ordering Facility: [facility] [place] Address: [address] [place] [address] Performed By: #### 1 9123-9, 65955-9 #### [facility] CLIA [id number] [address] [place] [address] [place] Calcium.ionized (Bld) [Mass/Vol] 1.14 mmol/L Normal 1.08-1.30 [facility] Comment on above: Order Comment: Speci men Type: BLOOD SPECIMEN Ordering Facility: [facility] [place] Address: [address] [place] [address] Performed By: #### 1 9123-9, 77855-0 #### [facility] CLIA [id number] [address] [place] [address] [place] Calcium.ionized adjusted to pH 7.4 (BldA) [Moles/Vol] 1.08 mmol/L Normal 1.08-1.30 [facility] Comment on above: Order Comment: Speci men Type: BLOOD SPECIMEN Ordering Facility: [facility] [place] Address: [address] [place] [address] Performed By: #### 1 9123-9, 87120-2 #### [facility] CLIA [id number] [address] [place] [address] [place] Carboxyhemoglobin (BldV) [Mass fraction] 2.3 % High 0.0-2.0 [facility] Comment on above: Order Comment: Speci men Type: BLOOD SPECIMEN Ordering Facility: [facility] [place] Address: [address] [place] [address] Result Comment: Carb oxyhemoglobin Reference Range for Smokers: 2.0-8.0% Performed By: #### 1 9123-9, 68959-1 #### [facility] CLIA [id number] [address] [place] [address] [place] Chloride [Moles/Vol] 103 mmol/L Normal 97-105 [facility] Comment on above: Order Comment: Speci men Type: BLOOD SPECIMEN Ordering Facility: [facility] [place] Address: [address] [place] [address] Performed By: #### 1 9123-9, 81308-1 #### [facility] CLIA [id number] [address] [place] [address] [place] CO2 (BldV) [Partial pressure] 66 mm[Hg] High 42-55 [facility] Comment on above: Order Comment: Speci men Type: BLOOD SPECIMEN Ordering Facility: [facility] [place] Address: [facility] [place] [address] Performed By: #### 1 9, 64077-5 #### [facility] CLIA [id number] [address] [place] [address] [place] CO2 adjusted to patient's actual temperature (BldV) [Partial pressure] Normal [facility] Comment on above: Order Comment: Speci men Type: BLOOD SPECIMEN Ordering Facility: [facility] [place] Address: [address] [place] [address] Performed By: #### 1 9123-04, #### [facility] CLIA [id number] [address] [place] [address] [place] Glucose [Mass/Vol] 222 mg/dL High 60-105 [facility] Comment on above: Order Comment: Speci men Type: BLOOD SPECIMEN Ordering Facility: [facility] [place] Address: [address] [place] [address] Performed By: #### 1 239, #### [facility] CLIA [id number] [address] [place] [address] [place] HCO3 (Bld) [Moles/Vol] 31 mmol/L High 24-28 [facility] Comment on above: Order Comment: Speci men Type: BLOOD SPECIMEN Ordering Facility: [facility] [place] Address: [address] [place] [address] Performed By: #### 1 239, 02543-5 #### [facility] CLIA [id number] [address] [place] [address] [place] Hematocrit (Bld) [Volume fraction] 38.5 % Low 39.0-51.0 [facility] Comment on above: Order Comment: Speci men Type: BLOOD SPECIMEN Ordering Facility: [facility] [place] Address: [address] [place] [address] Performed By: #### 1 23-9, 83290-5 #### [facility] CLIA [id number] [address] [place] [address] [place] Hemoglobin (Bld) [Mass/Vol] 12.5 g/dL Low 13.0-17.0 [facility] Comment on above: Order Comment: Speci men Type: BLOOD SPECIMEN Ordering Facility: [facility] [place] Address: [address] [place] [address] Performed By: #### 1 9123-9, 12059-0 #### [facility] CLIA [id number] [address] [place] [address] [place] Lactate [Moles/Vol] 0.7 mmol/L Normal 0.5-2.2 [facility] Comment on above: Order Comment: Speci men Type: BLOOD SPECIMEN Ordering Facility: [facility] [place] Address: [address] [place] [address] Performed By: #### 1 9123-9, 46927-0 #### [facility] CLIA [id number] [address] [place] [address] [place] Methemoglobin (Bld) [Mass fraction] 0.6 % Normal 0.0-1.5 [facility] Comment on above: Order Comment: Speci men Type: BLOOD SPECIMEN Ordering Facility: [facility] [place] Address: [address] [place] [address] Performed By: #### 1 9123-9, 51025-4 #### [facility] CLIA [id number] [address] [place] [address] [place] O2 THERAPY RA=Room Air Normal [facility] Comment on above: Order Comment: Speci men Type: BLOOD SPECIMEN Ordering Facility: [facility] [place] Address: [address] [place] [address] Performed By: #### 1 9123-9, 40246-7 #### [facility] CLIA [id number] [address] [place] [address] [place] Oxygen (BldV) [Partial pressure] 176 mm[Hg] High 35-45 [facility] Comment on above: Order Comment: Speci men Type: BLOOD SPECIMEN Ordering Facility: [facility] [place] Address: [address] [place] [address] Performed By: #### 1 9123-9, 30859-9 #### [facility] CLIA [id number] [address] [place] [address] [place] Oxygen adjusted to patient's actual temperature (BldV) [Partial pressure] Normal [facility] Comment on above: Order Comment: Speci men Type: BLOOD SPECIMEN Ordering Facility: [facility] [place] Address: [address] [place] [address] Performed By: #### 1 9123-9, 70415-8 #### [facility] CLIA [id number] [address] [place] [address] [place] Oxygen saturation in Venous blood 99 % High 60-85 [facility] Comment on above: Order Comment: Speci men Type: BLOOD SPECIMEN Ordering Facility: [facility] [place] Address: [address] [place] [address] Performed By: #### 1 9123-9, 12928-9 #### [facility] CLIA [id number] [address] [place] [address] [place] Oxyhemoglobin (BldV) [Mass fraction] 96 % High 60-85 [facility] Comment on above: Order Comment: Speci men Type: BLOOD SPECIMEN Ordering Facility: [facility] [place] Address: [address] [place] [address] Performed By: #### 1 9123-9, 16405-7 #### [facility] CLIA [id number] [address] [place] [address] [place] pH (BldV) 7.30 [pH] Low 7.32-7.42 [facility] Comment on above: Order Comment: Speci men Type: BLOOD SPECIMEN Ordering Facility: [facility] [place] Address: [address] [place] [address] Performed By: #### 1 9123-9, 06908-1 #### [facility] CLIA [id number] [address] [place] [address] [place] pH adjusted to patient's actual temperature (BldV) Normal [facility] Comment on above: Order Comment: Speci men Type: BLOOD SPECIMEN Ordering Facility: [facility] [place] Address: [address] [place] [address] Performed By: #### 1 9123-9, 16641-1 #### [facility] CLIA [id number] [place] [address] [place] Potassium [Moles/Vol] 3.9 mmol/L Normal 3.5-5.0 [facility] Comment on above: Order Comment: Speci men Type: BLOOD SPECIMEN Ordering Facility: [facility] [place] Address: [address] [place] [address] Performed By: #### 1 9123-9, 89131-3 #### [facility] CLIA [id number] [place] [address] [place] Sodium [Moles/Vol] 140 mmol/L Normal 136-144 [facility] Comment on above: Order Comment: [place] men Type: BLOOD SPECIMEN Ordering Facility: [facility] [place] Address: [address] [place] [address] Performed By: #### 1 9123-9, 24573-3 #### [facility] CLIA [id number] [address] [place] [address] [place] HIGH SENSITIVITY TROPONIN To n 10-24-2023 Troponin T.cardiac High sensitivity method [Mass/Vol] 153 ng/L High <12 [facility] Comment on above: Order Comment: [place] Type: BLOOD SPECIMENOrdering Facility: [facility] [place] Address: [address] [place] [address] Result Comment: When assessing risk for acute [...] day MACE. Performed By: #### H STNT ####[facility] [id number] [place] [address] [place] Troponin T.cardiac High sensitivity method [Mass/Vol] 152 ng/L High <12 [facility] Comment on above: Order Comment: [place] men Type: BLOOD SPECIMENOrdering Facility: [facility] [place] Address: [address], [place] [address] Result Comment: When assessing risk for acute [...] MACE. Performed By: #### 2 4321-2, HSTNT ####[facility] [id number] [place] [address] [place] HISTORY PHYSICALon HISTORY PHYSICAL HNO ID: [id number] Author: TAY STEWART MD Service: General Internal [...] Plan: Insul (more content not included)... Normal [facility] HISTORY PHYSICAL HNO ID: [id number] Author: JUDI LOERA PA Service: General Internal Medicine Author Type: Physician Heddler Type: H&P Filed: 10/24/2023 02:27 Note Text: [...] forefoot amputation admitted from home, lives in [place] for fluid overload. The patient states he's [...] Diagnosis Date IDDM (insulin dependent diabetes mellitus) (HCC) MRSA infection PAST SURGICAL HISTORY Procedure Laterality [...] constipation, d (more content not included)... [facility] HbA1c (Bld)on 10-24-2023 Average glucose Estimated from glycated hemoglobin (Bld) [Mass/Vol] 240 mg/dL Normal [facility] Comment on above: Order Comment: [place] men Type: BLOOD SPECIMENOrdering Facility: [facility] [place] Address: [address] [place] [address] Result Comment: eAG: (Estimated average glucose) is a calculated value from HgbA1c and is union representative of the average blood glucose level in the last 2-3 month period. Performed By: #### 5 5454-3 ####[facility] [id number] [place] [address] [place] HbA1c (Bld) [Mass fraction] 10.0 % High 4.3-5.6 [facility] Comment on above: Order Comment: [place] Type: BLOOD SPECIMENOrdering Facility: [facility] [place] Address: [address] [place] [address] Result Comment: Amer ican Diabetes Association guidelines indicate that patients with HgbA1c in the range 5.7-6.4% are at increased risk for development of diabetes, and intervention by lifestyle modification may be beneficial. HgbA1c greater or equal to 6.5% is considered diagnostic of diabetes. Performed By: #### 5 5454-3 ####[facility] [id number] [place] [address] [place] NM LUNG VENT / [...] - IMPRESSION: LOW PROBABILITY OF PULMONARY EMBOLISM. Room Service Food Service Attendant: PSCB Transcribe Date/Time: Oct 24 2023 2:27P Dictated by : CAT LUO MD This examination was interpreted and the report reviewed and electronically signed by: CAT LUO MD on Oct 24 2023 2:29PM EST [id number] N [facility] NURSING PROGon 10-24-2023 NURSING PROG HNO ID: [id number] Author: SLADE MCMILLAN RN Service: ? Author Type: Registered Nurse Type: Nursing Progress Note Filed: 10/24/2023 23:50 Note Text: 2118: page house to [facility] pt pCO2 came back 72. 2143: raymon huerta hudson at bedside states she will talk to ICU team and go from there 2348: pt transferred to MICU, report given to RN. [facility] NURSING PROG HNO ID: [id number] Author: CARTER ANGEL RN Service: Nursing Author Type: Registered Nurse Type: Nursing Progress Note Filed: 10/24/2023 18:32 Note Text: Other: Late entry for 829, decreased oxygen to 5L NC, baseline is 4L NC at home. 1230: Heparin gtt discontinued, ( no cardiology intervention to be done at this time) diet order placed 1700: urgent pCO2 of 70. Updated ELECTRONIC INTELLIGENCE OFFICER via secure chat. 1715 oxygen turned to 4.5 L per resp recommendation senior grants officer paged 1745: House office aware and into talk with patient. Will reach out to ICU for recommendations, sating 88-90 on 4.5 L 1830: New orders to repeat ABG's again at 2100 [facility] NURSING PROG HNO ID: [id number] Author: ANIA VAZQUEZ RN Service: ? Author Type: Registered Nurse Type: Nursing Progress Note Filed: 10/24/2023 03:26 Note Text: 0223- secure chat with HARPAL Garcia, pt has STAT order for echo, ok to be done tommorow, does not need to be done at this time [facility] NURSING PROG HNO ID: [id number] Author: SLADE MCMILLAN, RN Service: ? Author Type: Registered Nurse Type: Nursing Progress Note Filed: 10/24/2023 04:15 Note Text: 0304: [facility] pt MARINA came back 152. 0405: [facility] pt pulse ox keep dropping to 85-87 and he is on 6L of O2. he would jump up to 95 then back down and sustaining at 88%. He denies SOB. 0412: called back form , new orders put in. Normal [facility] NURSING PROG HNO ID: [id number] Author: ANIA VAZQUEZ, RAFAEL Service: ? Author Type: Registered Nurse Type: Nursing Progress Note Filed: 10/24/2023 01:27 Note Text: Transfer Note: PATIENT NAME: Nicole Lora Patient Location: [place] [address] [address] Room: [place] [address] Patient transferred into room/unit PK322 from the ED in stable condition. Actions taken: No futher actions taken at this time. Will continue to monitor and check with patient. Normal [facility] Osmolality SerPlon Osmolality [Osmolality] 316 mosm/kg High 275-300 [facility] Comment on above: Order Comment: Speci men Type: BLOOD SPECIMEN Ordering Facility: [facility] [place] Address: [address] [place] [address] Performed By: #### P TTA #### [facility] CLIA [id number] [address] [place] [address] [place] Osmolality Uron 10-24-2023 Osmolality (U) [Osmolality] 343 mosm/kg Normal 50-1200 [facility] Comment on above: Order Comment: Speci men Type: BLOOD SPECIMEN Ordering Facility: [facility] [place] Address: [address] [place] [address] Performed By: #### 1 9123-9, 13038-5 #### [facility] CLIA [id number] [address] [place] [id number] [place] PT panel Coag (PPP)on 2023 INR Coag (PPP) [Relative time] 1.0 {INR} Normal 0.9-1.3 [facility] Comment on above: Order Comment: [place] Type: BLOOD SPECIMENOrdering Facility: [facility] [place] Address: [address] [place] [address] Result Comment: Hazel min K Antagonist (VKA) Therapeutic Range: INR 2 to 3 (Target INR of 2.5) Note: For patients treated with VKA drugs, such as warfarin, the [place] [employer] 2012 Guideline recommends [...] 2.5 to 3.5 (target INR of 3). Mariposatt GH, et al. Chest 2012, 141:7S-47S Sheri RA, et al. [facility] 2017, 70: 252-289 Performed By: #### 4 8065-7, 58123-1, PTTAC ####[facility] [id number] [place] [id number] [place] PT Coag (PPP) [Time] 10.9 s Normal 9.7-13.0 [facility] Comment on above: Order Comment: [place] Type: BLOOD SPECIMENOrdering Facility: [facility] [place] Address: [address] [place] [address] Performed By: #### 4 8065-7, 39841-0, PTTAC ####[facility] [id number] [place] [id number] [place] PTT, ANTICOAGULANT THERAPYon 10-24-2023 aPTT Coag (PPP) [Time] 31.1 s Normal 23.0-32.4 [facility] Comment on above: Order Comment: Speci men Type: BLOOD SPECIMEN Ordering Facility: [facility] [place] Address: [address] [place] [address] Performed By: #### P TTAC #### [facility] CLIA [id number] [address] [place] [address] [place] aPTT Coag (PPP) [Time] 28.0 s Normal 23.0-32.4 [facility] Comment on above: Order Comment: Speci men Type: BLOOD SPECIMENOrdering Facility: [facility] [place] Address: [address] [place] [address] Performed By: #### 4 8065-7, 11497-6, PTTAC ####[facility] [id number] [address] [place] Potassium ?Tm Ur-sCncon 03-0 Potassium Unsp time (U) [Moles/Vol] 25.9 mmol/L Normal 10.0-160.0 [facility] Comment on above: Order Comment: Speci men Type: BLOOD SPECIMEN Ordering Facility: [facility] [place] Address: [address] [place] [address] Performed By: #### P TTAC #### [facility] CLIA [id number] [address] [place] [address] [place] Prot/Creat Uron 10-24-2023 Protein/Creatinine (U) [Mass ratio] 1.09 mg/mg High <0.15 [facility] Comment on above: Order Comment: Speci men Type: BLOOD SPECIMEN Ordering Facility: [facility] [place] Address: [address] [place] [address] Result Comment: Adul t Proteinuria Categories: <0.15 mg/mg is considered normal to mildly increased 0.15 - 0.50 mg/mg is considered moderately increased >0.50 mg/mg is considered severely increased KDIGO. (2013). KDIGO 2012 Clinical Practice Guideline for the Evaluation and Management of Chronic Kidney Disease. Official Journal of the International Society of Nephrology, 3(1), 1-150. Performed By: #### P TTAC #### [facility] CLIA [id number] [address] [place] [address] [place] Protein/Creatinine (U) [Mass ratio]on 10-24-2023 Creatinine (U) [Mass/Vol] 43.3 mg/dL Normal 20.0-300.0 [facility] Comment on above: Order Comment: Speci men Type: BLOOD SPECIMEN Ordering Facility: [facility] [place] Address: [address] [place] [address] Performed By: #### P TTAC #### [facility] CLIA [id number] [address] [place] [address] [place] Protein (U) [Mass/Vol] 47 mg/dL High 0-20 [facility] Comment on above: Order Comment: Speci men Type: BLOOD SPECIMEN Ordering Facility: [facility] [place] Address: [address] [place] [address] Performed By: #### P TTAC #### [facility] CLIA [id number] [address] [place] [address] [place] Sodium ?Tm Ur-sCncon 024 Sodium Unsp time (U) [Moles/Vol] 61 mmol/L Normal 14-216 [facility] Comment on above: Order Comment: Speci men Type: BLOOD SPECIMEN Ordering Facility: [facility] [place] Address: [address] [place] [address] Performed By: #### P TTAC #### [facility] CLIA [id number] [address] [place] [address] [place] THERAPY NTon 10-24-2023 THERAPY NT HNO ID: [id number] Author: CATHIE DOMÍNGUEZ, PT Service: Physical Therapy Author Type: Physical Therapist Type: Therapy (PT/OT/Speech/Resp) Filed: 10/24/2023 12:05 Note Text: Physical Therapy Evaluation Summary SERVICE DATE: 10/24/2023 SERVICE TIME: 908 to 931 ROOM: [place] [address] PT 6 Clicks Score: 20 DISCHARGE RECOMMENDATIONS [...] WBAT (Per RN Janice)) CURRENT HOSPITAL COURSE admit for fluid overload; Acute on chronic respiratory failure Relevant Past Medical History: CKD 3b, chronic respiratory failure, morbid obesity, insulin dependent diabetes, left forefoot amputation HOME LIVING Patient Lives With: Self/Alone, Other: See Comment Comments: Apt [address] level In [place], [place] Assistance Available: Part-Time, Other: See Comment [...] independently prior to admit, and drives. Per [facility] [facility], Pt has been in and out of hospitals for the past six weeks. . Pt has five children in the area, and reported they check him daily. SUBJECTIVE I'm uncomfortable THERAPY DIAGNOSIS Reduced mobility-other, Muscle Weakness (generalized), General symptoms and signs-other TREATMENT INTERVENTIONS Evaluation, Gait Training (23905) Timed Code Treatment (minutes): 8 Skilled Treatment [...] to Stand Transfers, Standing Tolerance SIGNATURE: Cathie Domínguez, PT PATIENT NAME: Nicole Lora DATE: October 24, 2023 TIME: 12:05 PM Normal [facility] THERAPY NT HNO ID: [id number] Author: LUZMA AVALOS, OTR/L Service: Occupational Therapy Author Type: Occupational Therapist Type: Therapy (PT/OT/Speech/Resp) Filed: 10/24/2023 12:02 Note Text: Occupational Therapy Evaluation Summary SERVICE DATE: 10/24/2023 SERVICE TIME: 839 to 904 ROOM: [address] 6 Clicks Score: 19 SOB, BLE Edema Rt > Left, Elevated troponin, Fluid Overload. Pt Presents With Multiple Recent Hospital Admits. DISCHARGE RECOMMENDATIONS Home Anticipated Discharge Needs: Physical Assist at Home, Equipment Physical Assist at Home for: Transportation, Shopping, Laundry, Cleaning Recommended Discharge Equipment: Grab Bars-Shower, Hand Held Shower, Long Handled Shoe Horn, Long Handled Sponge, Wheeled Walker, Mushroom Picker, Shower Chair ASSESSMENT Response to Therapy Interventions: [...] See Comment Comments: Apt 1st level In [place], [place] Assistance Available: Part-Time, Other: See Comment [...] independently prior to admit, and drives. Per [facility], Pt has been in and out of [...] Muscle Weakness (generalized) TREATMENT INTERVENTIONS Evaluation, Self Intermediate Management (77836) Timed Code Treatment (minutes): 10 Skilled Treatment Time (minutes): 25 TRAINING AND EDUCATION PROVIDED Bed Mobility, Benefits of In-Hospital Mobility, Discharge Planning, Edema Management, Disease Specific Education, Energy Conservation, Expected Functional Level, Insight into Deficits, Positioning, Precautions/Restricti ons, Role of Occupational Therapy, Safety/Judgment, Standing Balance to Improve [place] with ADLs/Self-Care, Transfer - Bed to Chair, [...] Rehab Po (more content not included)... Normal [facility] URINALYSIS, REFLEX MICROSCOP ICon 10-24-2023 Bacteria LM.HPF (Urine sed) [#/Area] Rare Abnormal None Seen [facility] Comment on above: Order Comment: Speci men Type: BLOOD SPECIMEN Ordering Facility: [facility] [place] Address: [address] [place] [address] Performed By: #### 1 13239, 89878-9 #### [facility] CLIA [id number] [address] [place] [address] [place] Bilirubin Ql (U) Negative Normal Negative [facility] Comment on above: Order Comment: Speci men Type: BLOOD SPECIMEN Ordering Facility: [facility] [place] Address: [address] [place] [address] Performed By: #### 1 77, 56376-4 #### [facility] CLIA [id number] [address] [place] [address] [place] Clarity (Unsp spec) Clear Normal Clear [facility] Comment on above: Order Comment: Speci men Type: BLOOD SPECIMEN Ordering Facility: [facility] [place] Address: [address] [place] [address] Performed By: #### 1 9, 39661-4 #### [facility] CLIA [id number] [address] [place] [address] [place] Color (U) Light Yellow Normal Yellow [facility] Comment on above: Order Comment: Speci men Type: BLOOD SPECIMEN Ordering Facility: [facility] [place] Address: [address] [place] [address] Performed By: #### 1 86099, 12463-0 #### [facility] CLIA [id number] [address] [place] [address] [place] Glucose Test strip (U) [Mass/Vol] Trace Normal Trace, Negative [facility] Comment on above: Order Comment: Speci men Type: BLOOD SPECIMEN Ordering Facility: [facility] [place] Address: [address] [place] [address] Performed By: #### 1 239, 07340-6 #### [facility] CLIA [id number] [address] [place] [address] [place] Hemoglobin Ql (U) 1+ Abnormal Negative, Trace Fa [facility] Comment on above: Order Comment: Speci men Type: BLOOD SPECIMEN Ordering Facility: [facility] [place] Address: [address] [place] [address] Performed By: #### 1 62, #### [facility] CLIA [id number] [address] [place] [address] [place] Hyaline casts (Urine sed) [#/Area] 4-10 /LPF Abnormal 0 /LPF [facility] Comment on above: Order Comment: Speci men Type: BLOOD SPECIMEN Ordering Facility: [facility] [place] Address: [address] [place] [address] Performed By: #### 1 37989, 00352-5 #### [facility] CLIA [id number] [address] [place] [address] Ketones Ql (U) Negative Normal Negative, Trace [facility] Comment on above: Order Comment: Speci men Type: BLOOD SPECIMEN Ordering Facility: [facility] [place] Address: [address] [place] [address] Performed By: #### 1 239, 51157-1 #### [facility] CLIA [id number] [address] [place] [address] Leukocyte esterase Test strip Ql (U) 500 Moira/uL Abnormal Negative, 25 Moira/uL [facility] Comment on above: Order Comment: Speci men Type: BLOOD SPECIMEN Ordering Facility: [facility] [place] Address: [address] [place] [address] Performed By: #### 1 4308, 65715-6 #### [facility] CLIA [id number] [address] [place] [address] [place] Nitrite Ql (U) Negative Normal Negative [facility] Comment on above: Order Comment: Speci men Type: BLOOD SPECIMEN Ordering Facility: [facility] [place] Address: [address] [place] [address] Performed By: #### 1 9123-9, #### [facility] CLIA [id number] [address] [place] [address] [place] pH (U) 5.5 [pH] Normal 5.0-8.0 [facility] Comment on above: Order Comment: Speci men Type: BLOOD SPECIMEN Ordering Facility: [facility] [place] Address: [address] [place] [address] Performed By: #### 1 9123-9, #### [facility] CLIA [id number] [address] [place] [address] [place] Protein (U) [Mass/Vol] 1+ Abnormal Trace, Negative [facility] Comment on above: Order Comment: Speci men Type: BLOOD SPECIMEN Ordering Facility: [facility] [place] Address: [address] [place] [address] Performed By: #### 1 9123-9, #### [facility] CLIA [id number] [address] [place] [address] [place] RBC LM.HPF (Urine sed) [#/Area] /[HPF] Abnormal 0-3 /HPF [facility] Comment on above: Order Comment: Speci men Type: BLOOD SPECIMEN Ordering Facility: [facility] [place] Address: [address] [place] [address] Performed By: #### 1 9123-9, 47549-6 #### [facility] CLIA [id number] [address] [place] [address] [place] Specific gravity (U) [Rel density] 1.015 Normal 1.005-1.030 [facility] Comment on above: Order Comment: Speci men Type: BLOOD SPECIMEN Ordering Facility: [facility] [place] Address: [address] [place] [address] Performed By: #### 1 9123-9, 23216-2 #### [facility] CLIA [id number] [address] [place] [address] [place] Urobilinogen Ql (U) Normal Normal Normal [facility] Comment on above: Order Comment: Speci men Type: BLOOD SPECIMEN Ordering Facility: [facility] [place] Address: [address] [place] [address] Performed By: #### 1 9123-9, 31161-5 #### [facility] CLIA [id number] [address] [place] [address] [place] WBC LM.HPF (Urine sed) [#/Area] 11-25 /HPF Abnormal 0-5 /HPF [facility] Comment on above: Order Comment: Speci men Type: BLOOD SPECIMEN Ordering Facility: [facility] [place] Address: [address] [place] [address] Performed By: #### 1 9123-9, 16944-8 #### [facility] CLIA [id number] [address] [place] [address] [place] US KIDNEY/BLADDERon 10-24-19 24 US KIDNEY/BLADDER * * *Final Report* * * DATE OF EXAM: Oct 24 2023 4:59PM U 1055 - US KIDNEY/BLADDER / PROCEDURE REASON: [...] Otherwise limited assessment especially on the left. Room Service Food Service Attendant: SAM Transcribe Date/Time: Oct 25 2023 7:19A Dictated by : KASHIF PIERSON MD This examination was interpreted and the report reviewed and electronically signed by: KASHIF PIERSON MD on Oct 25 2023 7:21AM EST [id number] N [facility] HNO ID: [id number] Author: LI WEN RDMS Service: Radiology Author Type: Dowel Machine Operator Type: [facility] Filed: 10/23/2023 18:11 Note Text: Radiology Service [...] PATIENT PRESENTS WITH AN IMPLANTABLE OR ATTACHED PETROPHYSICIST: No RADIOLOGY DEPARTMENT: Ultrasound PERIPHERAL IV DATA: Not applicable SIGNED BY: Li Wen RDMS October 23, 2023 6:10 PM [facility] HNO ID: [id number] Author: MALOU NINO RT(Zarina) Service: Radiology Author Type: Technologist Type: [facility] Filed: 10/23/2023 17:32 Note Text: Radiology Service [...] PATIENT PRESENTS WITH AN IMPLANTABLE OR ATTACHED PETROPHYSICIST: No RADIOLOGY DEPARTMENT: General X-ray: Exam(s) Completed: Chest X-Ray PERIPHERAL IV DATA: Not applicable SIGNED BY: Malou Nino RT(R) October 23, 2023 5:32 PM Normal [facility] CBC W Auto Differential pane l (Bld)on 10-23-2023 Basophils (Bld) [#/Vol] 10*3/uL Normal <0.11 [facility] Comment on above: Order Comment: Speci men Type: BLOOD SPECIMEN Ordering Facility: [facility] [place] Address: [address] [place] [address] Performed By: #### 1 0723-9, 21772-3 #### [facility] CLIA [id number] [address] [place] [address] [place] Basophils/100 WBC (Bld) 0.3 % Normal [facility] Comment on above: Order Comment: Speci men Type: BLOOD SPECIMEN Ordering Facility: [facility] [place] Address: [address] [place] [address] Performed By: #### 1 3023-9, 00009-5 #### [facility] CLIA [id number] [address] [place] [address] [place] Differential cell count method Nom (Bld) Auto Normal [facility] Comment on above: Order Comment: Speci men Type: BLOOD SPECIMEN Ordering Facility: [facility] [place] Address: [address] [place] [address] Performed By: #### 1 2423-9, 47177-9 #### [facility] CLIA [id number] [address] [place] [address] [place] Eosinophils (Bld) [#/Vol] 0.27 10*3/uL Normal <0.46 [facility] Comment on above: Order Comment: Speci men Type: BLOOD SPECIMEN Ordering Facility: [facility] [place] Address: [address] [place] [address] Performed By: #### 1 9923-9, 26215-6 #### [facility] CLIA [id number] [address] [place] [address] [place] Eosinophils/100 WBC (Bld) 3.8 % Normal [facility] Comment on above: Order Comment: Speci men Type: BLOOD SPECIMEN Ordering Facility: [facility] [place] Address: [address] [place] [address] Performed By: #### 1 23-9, 20102-8 #### [facility] CLIA [id number] [address] [place] [address] [place] Erythrocyte distribution width (RBC) [Ratio] 16.3 % High 11.5-15.0 [facility] Comment on above: Order Comment: Speci men Type: BLOOD SPECIMEN Ordering Facility: [facility] [place] Address: [address] [place] [address] Performed By: #### 1 239, 12236-5 #### [facility] CLIA [id number] [address] [place] [address] [place] Hematocrit (Bld) [Volume fraction] 40.6 % Normal 39.0-51.0 [facility] Comment on above: Order Comment: Speci men Type: BLOOD SPECIMEN Ordering Facility: [facility] [place] Address: [address] [place] [address] Performed By: #### 1 239, #### [facility] CLIA [id number] [address] [place] [address] [place] Hemoglobin (Bld) [Mass/Vol] 12.4 g/dL Low 13.0-17.0 [facility] Comment on above: Order Comment: Speci men Type: BLOOD SPECIMEN Ordering Facility: [facility] [place] Address: [address] [place] [address] Performed By: #### 1 239, 79593-4 #### [facility] CLIA [id number] [address] [place] [address] [place] Immature granulocytes (Bld) [#/Vol] 0.04 10*3/uL Normal <0.10 [facility] Comment on above: Order Comment: Speci men Type: BLOOD SPECIMEN Ordering Facility: [facility] [place] Address: [address] [place] [address] Performed By: #### 1 9123-9, 03928-2 #### [facility] CLIA [id number] [address] [place] [address] [place] Immature granulocytes/100 WBC (Bld) 0.6 % Normal [facility] Comment on above: Order Comment: Speci men Type: BLOOD SPECIMEN Ordering Facility: [facility] [place] Address: [address] [place] [address] Performed By: #### 1 9123-9, 84645-6 #### [facility] CLIA [id number] [address] [place] [address] [place] Lymphocytes (Bld) [#/Vol] 1.04 10*3/uL Normal 1.00-4.00 [facility] Comment on above: Order Comment: Speci men Type: BLOOD SPECIMEN Ordering Facility: [facility] [place] Address: [address] [place] [address] Performed By: #### 1 9123-9, #### [facility] CLIA [id number] [address] [place] [address] [place] Lymphocytes/100 WBC (Bld) 14.7 % Normal [facility] Comment on above: Order Comment: Speci men Type: BLOOD SPECIMEN Ordering Facility: [facility] [place] Address: [address] [place] [address] Performed By: #### 1 9123-9, 73907-1 #### [facility] CLIA [id number] [address] [place] [address] [place] MCH (RBC) [Entitic mass] 27.1 pg Normal 26.0-34.0 [facility] Comment on above: Order Comment: Speci men Type: BLOOD SPECIMEN Ordering Facility: [facility] [place] Address: [address] [place] [address] Performed By: #### 1 9123-9, 83877-4 #### [facility] CLIA [id number] [address] [place] [address] [place] MCHC (RBC) [Mass/Vol] 30.5 g/dL Normal 30.5-36.0 [facility] Comment on above: Order Comment: Speci men Type: BLOOD SPECIMEN Ordering Facility: [facility] [place] Address: [address] [place] [address] Performed By: #### 1 9123-9, #### [facility] CLIA [id number] [address] [place] [address] [place] MCV (RBC) [Entitic vol] 88.6 fL Normal 80.0-100.0 [facility] Comment on above: Order Comment: Speci men Type: BLOOD SPECIMEN Ordering Facility: [facility] [place] Address: [address] [place] [address] Performed By: #### 1 9123-9, #### [facility] CLIA [id number] [address] [place] [address] [place] Monocytes (Bld) [#/Vol] 0.74 10*3/uL Normal <0.87 [facility] Comment on above: Order Comment: Speci men Type: BLOOD SPECIMEN Ordering Facility: [facility] [place] Address: [address] [place] [address] Performed By: #### 1 239, #### [facility] CLIA [id number] [address] [place] [address] [place] Monocytes/100 WBC (Bld) 10.4 % Normal [facility] Comment on above: Order Comment: Speci men Type: BLOOD SPECIMEN Ordering Facility: [facility] [place] Address: [address] [place] [address] Performed By: #### 1 91239, #### [facility] CLIA [id number] [address] [place] [address] [place] Neutrophils (Bld) [#/Vol] 4.98 10*3/uL Normal 1.45-7.50 [facility] Comment on above: Order Comment: Speci men Type: BLOOD SPECIMEN Ordering Facility: [facility] [place] Address: [address] [place] [address] Performed By: #### 1 9123-9, #### [facility] CLIA [id number] [address] [place] [address] [place] Neutrophils/100 WBC (Bld) 70.2 % Normal [facility] Comment on above: Order Comment: Speci men Type: BLOOD SPECIMEN Ordering Facility: [facility] [place] Address: [address] [place] [address] Performed By: #### 1 23-9, #### [facility] CLIA [id number] [address] [place] [address] [place] Nucleated RBC (Bld) [#/Vol] 10*3/uL Normal <0.01 [facility] Comment on above: Order Comment: Speci men Type: BLOOD SPECIMEN Ordering Facility: [facility] [place] Address: [address] [place] [address] Performed By: #### 1 9, #### [facility] CLIA [id number] [address] [place] [address] [place] Nucleated RBC/100 WBC (Bld) [Ratio] 0.0 /100 WBC Normal [facility] Comment on above: Order Comment: Speci men Type: BLOOD SPECIMEN Ordering Facility: [facility] [place] Address: [address] [place] [address] Performed By: #### 1 23, #### [facility] CLIA [id number] [address] [place] [address] [place] Platelet mean volume (Bld) [Entitic vol] 8.9 fL Low 9.0-12.7 [facility] Comment on above: Order Comment: Speci men Type: BLOOD SPECIMEN Ordering Facility: [facility] [place] Address: [address] [place] [address] Performed By: #### 1 9123-04, 47380-3 #### [facility] CLIA [id number] [address] [place] [address] [place] Platelets (Bld) [#/Vol] 220 10*3/uL Normal 150-400 [facility] Comment on above: Order Comment: Speci men Type: BLOOD SPECIMEN Ordering Facility: [facility] [place] Address: [address] [place] [address] Performed By: #### 1 239, 75115-4 #### [facility] CLIA [id number] [address] [place] [address] [place] RBC (Bld) [#/Vol] 4.58 10*6/uL Normal 4.20-6.00 [facility] Comment on above: Order Comment: Speci men Type: BLOOD SPECIMEN Ordering Facility: [facility] [place] Address: [address] [place] [address] Performed By: #### 1 9123-9, 56334-4 #### [facility] CLIA [id number] [address] [place] [address] [place] WBC (Bld) [#/Vol] 7.09 10*3/uL Normal 3.70-11.00 [facility] Comment on above: Order Comment: Speci men Type: BLOOD SPECIMEN Ordering Facility: [facility] [place] Address: [address] [place] [address] Performed By: #### 1 9123-9, 54733-8 #### [facility] CLIA [id number] [address] [place] [address] [place] Comprehensive metabolic 2000 panelon 10-23-2023 Albumin [Mass/Vol] 3.5 g/dL Low 3.9-4.9 [facility] Comment on above: Order Comment: Speci men Type: BLOOD SPECIMEN Ordering Facility: [facility] [place] Address: [address] [place] [address] Performed By: #### H STNT, 3016-3, 84280-2, 00313-7 #### [facility] CLIA [id number] [address] [place] [address] [place] ALP [Catalytic activity/Vol] 112 U/L Normal 38-113 [facility] Comment on above: Order Comment: Speci men Type: BLOOD SPECIMEN Ordering Facility: [facility] [place] Address: [address] [place] [address] Performed By: #### H STNT, 3016-3, 28002-4, 50565-8 #### [facility] CLIA [id number] [address] [place] [address] [place] ALT [Catalytic activity/Vol] 19 U/L Normal 10-54 [facility] Comment on above: Order Comment: Speci men Type: BLOOD SPECIMEN Ordering Facility: [facility] [place] Address: [address] [place] [address] Performed By: #### H STNT, 3016-3, 44423-6, 77403-7 #### [facility] CLIA [id number] [address] [place] [address] [place] Anion gap [Moles/Vol] 11 mmol/L Normal 9-18 [facility] Comment on above: Order Comment: Speci men Type: BLOOD SPECIMEN Ordering Facility: [facility] [place] Address: [address] [place] [address] Performed By: #### H STNT, 3016-3, 14051-0, 41511-8 #### [facility] CLIA [id number] [address] [place] [address] [place] AST [Catalytic activity/Vol] 21 U/L Normal 14-40 [facility] Comment on above: Order Comment: Speci men Type: BLOOD SPECIMEN Ordering Facility: [facility] [place] Address: [address] [place] [address] Performed By: #### H STNT, 3016-3, 41237-6, 79385-5 #### [facility] CLIA [id number] [address] [place] [address] [place] Bilirubin [Mass/Vol] 0.4 mg/dL Normal 0.2-1.3 [facility] Comment on above: Order Comment: Speci men Type: BLOOD SPECIMEN Ordering Facility: [facility] [place] Address: [address] [place] [address] Performed By: #### H STNT, 3016-3, 00485-2, 19578-6 #### [facility] CLIA [id number] [address] [place] [address] [place] Calcium [Mass/Vol] 8.6 mg/dL Normal 8.5-10.2 [facility] Comment on above: Order Comment: Speci men Type: BLOOD SPECIMEN Ordering Facility: [facility] [place] Address: [address] [place] [address] Performed By: #### H STNT, 3016-3, 68494-2, 80979-4 #### [facility] CLIA [id number] [address] [place] [address] [place] Chloride [Moles/Vol] 100 mmol/L Normal 97-105 [facility] Comment on above: Order Comment: Speci men Type: BLOOD SPECIMEN Ordering Facility: [facility] [place] Address: [address] [place] [address] Performed By: #### H STNT, 3016-3, 55508-6, 82041-3 #### [facility] CLIA [id number] [address] [place] [address] [place] CO2 [Moles/Vol] 28 mmol/L Normal 22-30 [facility] Comment on above: Order Comment: Speci men Type: BLOOD SPECIMEN Ordering Facility: [facility] [place] Address: [address] [place] [address] Performed By: #### H STNT, 3016-3, 39647-2, 09077-9 #### [facility] CLIA [id number] [address] [place] [address] [place] Creatinine [Mass/Vol] 2.00 mg/dL High 0.73-1.22 [facility] Comment on above: Order Comment: Speci men Type: BLOOD SPECIMEN Ordering Facility: [facility] [place] Address: [address] [place] [address] Performed By: #### H STNT, 3016-3, 11290-2, 42370-2 #### [facility] CLIA [id number] [address] [place] [address] [place] [place] Creatinine and Glomerular filtration rate.predicted panel (S/P/Bld) 37 mL/min/1.73m??? Low >=60 [facility] Comment on above: Order Comment: Speci men Type: BLOOD SPECIMEN Ordering Facility: [facility] [place] Address: [address] [place] [address] Result Comment: Meredith mated Glomerular Filtration Rate [...] GFR. Performed By: #### H STNT, 3016-3, 57410-2, 78562-4 #### [facility] CLIA [id number] [place] [address] [place] Glucose [Mass/Vol] 138 mg/dL High 74-99 [facility] Comment on above: Order Comment: Specbrianne men Type: BLOOD SPECIMEN Ordering Facility: [facility] [place] Address: [address] [place] [address] Result Comment: The [place] Diabetes Association (ADA) provides guidance for cutoff [...] Standards of Medical Care in Diabetes 2016, [place] [employer]. Diabetes Care. 2016.39(Suppl 1). Performed By: #### H STNT, 3016-3, 73759-7, 87422-8 #### [facility] CLIA [id number] [place] [address] [place] Potassium [Moles/Vol] 4.6 mmol/L Normal 3.7-5.1 [facility] Comment on above: Order Comment: [place] Type: BLOOD SPECIMEN Ordering Facility: [facility] [place] Address: [address] [place] [address] Performed By: #### H STNT, 3016-3, 60269-4, 26487-5 #### [facility] CLIA [id number] [place] [id number] [place] Protein [Mass/Vol] 6.5 g/dL Normal 6.3-8.0 [facility] Comment on above: Order Comment: Speci men Type: BLOOD SPECIMEN Ordering Facility: [facility] [place] Address: [address] [place] [address] Performed By: #### H STNT, 3016-3, 38658-6, 87464-1 #### [facility] CLIA [id number] [address] [place] [address] [place] Sodium [Moles/Vol] 139 mmol/L Normal 136-144 [facility] Comment on above: Order Comment: Speci men Type: BLOOD SPECIMEN Ordering Facility: [facility] [place] Address: [address] [place] [address] Performed By: #### H STNT, 3016-3, 41730-8, 33814-8 #### [facility] CLIA [id number] [address] [place] [address] [place] Urea nitrogen [Mass/Vol] 60 mg/dL High 9-24 [facility] Comment on above: Order Comment: Speci men Type: BLOOD SPECIMEN Ordering Facility: [facility] [place] Address: [address] [place] [address] Performed By: #### H STNT, 3016-3, 87213-0, 36463-3 #### [facility] CLIA [id number] [address] [place] [address] [place] ECG COMPLETEon 10-23-2023 ECG COMPLETE Ventricular Rate : 7 7 BPM Atrial Rate : 78 BPM P-R Interval : 180 ms QRS Duration : 97 ms Q-T Interval : 389 ms QTC Calculation(Bazett) : 441 ms Calculated P Forest : 53 degrees Calculated R Forest : -76 degrees Calculated T Forest : 65 degrees Sinus rhythm Left anterior fascicular block Abnormal ECG no stemi Confirmed by DARNELL YIN MD ([id number]), news copy editor JACQUELINE ROSALES ([id number]) on 10/24/2023 10:36:37 AM NAME : NICOLE LORA PID : [id number] : 1960 Gender : Male Race : ORD : [id number] Procedure Date : Oct 23 2023 20:16:04 Edit Date : Oct 24 2023 10:36:39 Diagnosis: Sinus rhythm Left anterior fascicular block Abnormal ECG no stemi Confirmed by DARNELL YIN MD ([id number]), news copy editor JACQUELINE ROSALES ([id number]) on 10/24/2023 10:36:37 AM Test Reason : Other - Specify Location : 402 : FVED [id number] Overread By : DARNELL YIN MD Edited By : JACQUELINE ROSALES Referred By : , Acquired by : [id number], [facility] ED NOTEon 10-23-2023 ED NOTE HNO ID: [id number] Author: PER HARDWICK RN Service: ? 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 He has been in and out of the hospital for the past 6 weeks at [facility] and [facility]. He was initially found to be [...] for the (more content not included)... Normal [facility] ED Triage Noteon 10-23-2023 ED Triage Note HNO ID: [id number] Author: OTONIEL ALBERTS MD Service: ? Author [...] No diagnosis found. SIGNATURE: Otoniel Alberts MD Normal [facility] HIGH SENSITIVITY TROPONIN To n 10-23-2023 Troponin T.cardiac High sensitivity method [Mass/Vol] 167 ng/L High <12 [facility] Comment on above: Order Comment: Speci men Type: BLOOD SPECIMENOrdering Facility: [facility] [place] Address: [address] [place] [address] Result Comment: When assessing risk for acute [...] day MACE. Performed By: #### H STNT ####[facility] [id number] [place] [address] [place] Troponin T.cardiac High sensitivity method [Mass/Vol] 172 ng/L High <12 [facility] Comment on above: Order Comment: [place] Type: BLOOD SPECIMEN Ordering Facility: [facility] [place] Address: [address] [place] [address] Result Comment: When assessing risk for acute [...] MACE. Performed By: #### H STNT, 3016-3, 00537-9, 29966-3 #### [facility] CLIA [id number] [place] [address] [place] NT-proBNP SerPl-mCncon 10-22 Natriuretic peptide.B prohormone N-Terminal [Mass/Vol] 1124 pg/mL High <125 [facility] Comment on above: Order Comment: [place] Type: BLOOD SPECIMEN Ordering Facility: [facility] [place] Address: [address] [place] [address] Performed By: #### H STNT, 3016-3, 27320-3, 00132-0 #### [facility] CLIA [id number] [place] [address] [place] TSH SerPl-aCncon 10-23-2023 TSH Qn 2.630 m[IU]/L Normal 0.270-4.200 [facility] Comment on above: Order Comment: Speci men Type: BLOOD SPECIMEN Ordering Facility: [facility] [place] Address: [facility] [place] [place] [address] Performed By: #### H STNT, 3016-3, 70091-4, 54896-2 #### [facility] CLIA [id number] [address] [place] [address] [place] US DVT LOWER [...] OF THE LEFT AND RIGHT LOWER EXTREMITIES. Room Service Food Service Attendant: SAM Transcribe Date/Time: Oct 23 2023 6:44P Dictated by : PRESTON GONZALEZ MD This examination was interpreted and the report reviewed and electronically signed by: PRESTON GONZALEZ MD on Oct 23 2023 6:47PM EST [id number] [facility] XR CHEST 1V FRONTAL PORTon 0 [...] venous hypertension and possible mild pulmonary edema. Room Service Food Service Attendant: [facility] Transcribe Date/Time: Oct 23 2023 5:22P Dictated by : RADHA KONG MD This examination was interpreted and the report reviewed and electronically signed by: RADHA KONG MD on Oct 23 2023 5:25PM EST [id number] Normal [facility] Pre-Certification Formon Pre-Certification Form [id number] .00TIFF Normal [facility] [place] Ambulatory Visit Summaryon 0 10-18-2023 Ambulatory Visit Summary Normal [facility] Patient Educationon 10-18-19 Patient Education Normal [facility] Urology Office/Clinic Noteon 10-18-2023 Urology Office/Clinic Note Normal [facility] [place] Comment on above: Result Comment: Elec tronically Signed By: Basia Claire\.br\Date and Time Signed: 10/18/23 09:42 EST\.br\Electronically Co-Signed By: Bailey Vásquez\.br\Date and Time Co-Signed: 10/18/23 09:44 EST\.br\Electronically Co-Signed By: Taz THOMAS MD\.br\Date and Time Co-Signed: 10/18/23 15:44 EST Consent for Treatmenton 09-22 Consent for Treatment [id number] .00TIFF [facility] Discharge Instructionson Discharge Instructions [id number] .00TIFF [facility] ED Clinical Summaryon 2023 ED Clinical Summary Normal [facility] ED Note-Physicianon 10-15-19 ED Note-Physician [facility] Comment on above: Result Comment: Elec tronically Signed By: Mone Martinez DO\.br\Date and Time Signed: 10/15/23 06:52 EST ED Patient Education Noteon 10-15-2023 ED Patient Education Note Normal [facility] ED Patient Summaryon 024 ED Patient Summary Normal [facility] Calcium [Mass/volume] in Ser um or PlasmaOrdered By: Yesi Murphy on 10-13-2023 Calcium [Mass/Vol] 8.2 mg/dL 8.6-10.3 [facility] Carbon dioxide, total [Moles /volume] in Serum or PlasmaOrdered By: Yesi Murphy on 10-13-2023 CO2 [Moles/Vol] 33.7 mmol/L 21.0-31.0 [facility] Chloride [Moles/volume] in S raymond or PlasmaOrdered By: Yesi Murphy on 10-13-2023 Chloride [Moles/Vol] 100 mmol/L 98-[address] [facility] Creatinine [Mass/volume] in Serum or PlasmaOrdered By: Yesi Murphy on 10-13-2023 Creatinine [Mass/Vol] 1.91 mg/dL 0.70-1.30 [facility] Glucose [Mass/volume] in Ser um or PlasmaOrdered By: Yesi Murphy on 10-13-2023 Glucose [Mass/Vol] 250 mg/dL 70-100 [facility] Comment on above: ADA recommended refe rence rangeRandom Glucose Reference Range is dependent on time and content of last meal. Glucose of more than 200 mg/dL in a nonstressed, ambulatory subject supports the diagnosis of Diabetes Mellitus. No Panel InformationOrdered By: Yesi Murphy on 10-13-2023 Estimated GFR (CKD-EPI) 38.661 mL/Min [facility] Creatinine Clearance (Chem N/A [facility] Potassium [Moles/volume] in Serum or PlasmaOrdered By: Yesi Murphy on 10-13-2023 Potassium [Moles/Vol] 4.3 mmol/L 3.5-5.1 [facility] Serum or plasma anion gap de terminationOrdered By: Yesi Murphy on 10-13-2023 Anion gap [Moles/Vol] 10.6 mmol/L 6.0-15.0 [facility] Sodium [Moles/volume] in Ser um or PlasmaOrdered By: Yesi Murphy on 10-13-2023 Sodium [Moles/Vol] 140 mmol/L 136-145 [facility] Urea nitrogen [Mass/volume] in Serum or PlasmaOrdered By: Yesi Murphy on 10-13-2023 Urea nitrogen [Mass/Vol] 52 mg/dL 7-25 [facility] Albumin [Mass/volume] in Ser um or Plasma by Bromocresol green (BCG) dye binding methoOrdered By: Gigi Cooper on 10-12-2023 Albumin BCG dye [Mass/Vol] 3.6 g/dL 3.5-5.7 [facility] Calcium [Mass/volume] in Ser um or PlasmaOrdered By: Gigi Cooper on 10-12-2023 Calcium [Mass/Vol] 8.8 mg/dL 8.6-10.3 [facility] Carbon dioxide, total [Moles /volume] in Serum or PlasmaOrdered By: Gigi Cooper on 10-12-2023 CO2 [Moles/Vol] 32.8 mmol/L 21.0-31.0 [facility] Chloride [Moles/volume] in S raymond or PlasmaOrdered By: Gigi Cooper on 10-12-2023 Chloride [Moles/Vol] 96 mmol/L 98-[address] [facility] Creatinine [Mass/volume] in Serum or PlasmaOrdered By: Gigi Cooper on 10-12-2023 Creatinine [Mass/Vol] 1.95 mg/dL 0.70-1.30 [facility] Glucose Glucometer (BldC) [M ass/Vol]Ordered By: Yesi Murphy on 10-12-2023 Glucose [Mass/Vol] 224 mg/dL [facility] Comment on above: Random Glucose Refer ence Range is dependent on time and content of last meal. Glucose of more than 200 mg/dL in a nonstressed, ambulatory subject supports the diagnosis of Diabetes Mellitus. Glucose [Mass/volume] in Ser um or PlasmaOrdered By: Gigi Cooper on 10-12-2023 Glucose [Mass/Vol] 275 mg/dL 70-100 [facility] Comment on above: Delta: 157 on -[id number] recommended reference rangeRandom Glucose Reference Range is dependent on time and content of last meal. Glucose of more than 200 mg/dL in a nonstressed, ambulatory subject supports the diagnosis of Diabetes Mellitus. No Panel InformationOrdered By: Gigi Cooper on 10-12-2023 Estimated GFR (CKD-EPI) 37.711 mL/Min [facility] Creatinine Clearance (Chem 54.56 [facility] No Panel InformationOrdered By: Yesi Murphy on 10-12-2023 Bedside Glucose Comment Glu2: cleaned meter [facility] Phosphate [Mass/volume] in S raymond or PlasmaOrdered By: Gigi Cooper on 10-12-2023 Phosphate [Mass/Vol] 3.4 mg/dL 2.5-4.[address] [facility] Potassium [Moles/volume] in Serum or PlasmaOrdered By: Gigi Cooper on 10-12-2023 Potassium [Moles/Vol] 3.9 mmol/L 3.5-5.1 [facility] Serum or plasma anion gap de terminationOrdered By: Gigi Cooper on 10-12-2023 Anion gap [Moles/Vol] 10.1 mmol/L 6.0-15.0 [facility] Sodium [Moles/volume] in Ser um or PlasmaOrdered By: Gigi Cooper on 10-12-2023 Sodium [Moles/Vol] 135 mmol/L 136-145 [facility] Urea nitrogen [Mass/volume] in Serum or PlasmaOrdered By: Gigi Cooper on 10-12-2023 Urea nitrogen [Mass/Vol] 48 mg/dL 7-25 [facility] Automated erythrocytes count in urine sediment (number/area)Ordered By: Gigi Cooper on 10-10-2023 RBC Auto (Urine sed) [#/Area] None seen [HPF] 0-4 [facility] Automated leukocytes count i n urine sediment (number/area)Ordered By: Gigi Cooper on 10-10-2023 WBC Auto (Urine sed) [#/Area] None seen [HPF] 0-4 [facility] Bilirubin Test strip Ql (U)O rdered By: Gigi Cooper on 10-10-2023 Bilirubin Ql (U) Negative Negative [facility] Color Auto (U)Ordered By: Tony Cooper on 10-10-2023 Color (U) Yellow Yellow [facility] Ketones Auto test strip (U) [Mass/Vol]Ordered By: Gigi Cooper on 10-10-2023 Ketones (U) [Mass/Vol] Negative Negative [facility] Laboratory - UrinalysisOrder ed By: Gigi Cooper on 10-10-2023 Hyaline casts LM Ql (Urine sed) 0-8 [LPF] 0-8 [facility] Nitrite Test strip Ql (U)Ord ered By: Gigi Cooper on 10-10-2023 Nitrite Ql (U) Negative Negative [facility] Protein Auto test strip (U) [Mass/Vol]Ordered By: Gigi Cooper on 10-10-2023 Protein (U) [Mass/Vol] 30 mg/dL Negative [facility] Specific gravity Auto test s trip (U) [Rel density]Ordered By: Gigi Cooper on 10-10-2023 Specific gravity (U) [Rel density] 1.008 1.001-1.030 [facility] Squamous epithelial cells de tection in urine sediment by light microscopyOrdered By: Gigi Cooper on 10-10-2023 Epithelial cells.squamous LM Ql (Urine sed) None seen [HPF] 0-2 [facility] Urine bacteria detection by automated methodOrdered By: Gigi Cooper on 10-10-2023 Bacteria Auto Ql (U) None seen None Seen [facility] Urine clarity by refractomet ry automatedOrdered By: Gigi Cooper on 10-10-2023 Clarity Refractometry automated (U) Clear Clear [facility] Urine glucose measurement by automated test strip (mass/volume)Ordered By: Gigi Cooper on 10-10-2023 Glucose Auto test strip (U) [Mass/Vol] Normal mg/dL Normal [facility] Urine hemoglobin detection b y automated test stripOrdered By: Gigi Cooper on 10-10-2023 Hemoglobin Auto test strip Ql (U) Negative Negative [facility] Urine leukocyte esterase det ection by automated test stripOrdered By: Gigi Cooper on 10-10-2023 Leukocyte esterase Auto test strip Ql (U) Negative Negative [facility] Urobilinogen Auto test strip (U) [Mass/Vol]Ordered By: Gigi Cooper on 10-10-2023 Urobilinogen (U) [Mass/Vol] Normal mg/dL Normal [facility] pH Auto test strip (U)Ordere d By: Gigi Cooper on 10-10-2023 pH (U) 5.0 [pH] 5.0-9.0 [facility] Magnesium [Mass/volume] in S raymond or PlasmaOrdered By: Ramses Masters on 10-09-2023 Magnesium [Mass/Vol] 2.0 mg/dL 1.9-2.[address] [facility] Nursing Note - Woundon 10-09 Nursing Note - Wound [id number]# 1.00TIFF Normal [facility] Creatinine [Mass/volume] in UrineOrdered By: Hood Zacarias on 10-08-2023 Creatinine (U) [Mass/Vol] 23.0 mg/dL 14.0-26.0 [facility] Protein [Mass/volume] in Uri neOrdered By: Hood Zacarias on 10-08-2023 Protein (U) [Mass/Vol] 40 mg/dL 0-9 [facility] Activated partial thrombopla stin time (aPTT) in platelet poor plasma by coagulation aOrdered By: Jason Mercado on 10-06-2023 aPTT Coag (PPP) [Time] 31.1 s 25.1-36.5 [facility] Comment on above: A hematocrit value g reater than 55% may lead to inaccurate results in coagulation testing. Patients having hematocrit values >55% require a special collection tube for coagulation studies. Please contact the laboratory at [phone] for redraw instructions. Automated erythrocytes count in urine sediment (number/area)Ordered By: Jason Mercado on 10-06-2023 RBC Auto (Urine sed) [#/Area] Innumerable [HPF] 0-4 [facility] Automated leukocytes count i n urine sediment (number/area)Ordered By: Jason Mercado on 10-06-2023 WBC Auto (Urine sed) [#/Area] 1-2 [HPF] 0-4 [facility] Bacterial blood cultureOrder ed By: Jason Mercado on 10-06-2023 Bacteria identified Cx Nom (Bld) NO GROWTH 5 DAYS [facility] Bacteria identified Cx Nom (Bld) NO GROWTH 5 DAYS [facility] Bacteria identified Cx Nom (Bld) NO GROWTH 5 DAYS [facility] Bacteria identified Cx Nom (Bld) NO GROWTH 5 DAYS [facility] Basophils Auto (Bld) [#/Vol] Ordered By: Jason Mercado on 10-06-2023 Basophils (Bld) [#/Vol] 0.1 10*3/uL 0.0-0.2 [facility] Basophils/100 WBC Auto (Bld) Ordered By: Jason Mercado on 10-06-2023 Basophils/100 WBC (Bld) 1.0 % . [facility] Bilirubin Test strip Ql (U)O rdered By: Jason Mercado on 10-06-2023 Bilirubin Ql (U) Negative Negative [facility] COVID CepheidOrdered By: Myra Mercado on 10-06-2023 SARS-CoV-2 (COVID-19) Ab IA Ql Negative Negative [facility] Comment on above: This is a duplicate [employer] Xpert Xpress CoV-2/Flu/RSV Plus RNA by RT-PCR result to be used for statistical tracking purpose only. SARS-CoV-2 (COVID-19) RNA ERIBERTO+probe Ql (Unsp spec) [facility] SARS-CoV-2 (COVID-19) RNA ERIBERTO+probe Ql (Unsp spec) [facility] Calcium [Mass/volume] in Ser um or PlasmaOrdered By: Jason Mercado on 10-06-2023 Calcium [Mass/Vol] 8.7 mg/dL 8.6-10.3 [facility] Carbon dioxide, total [Moles /volume] in Serum or PlasmaOrdered By: Jason Mercado on 10-06-2023 CO2 [Moles/Vol] 28.2 mmol/L 21.0-31.0 [facility] Chloride [Moles/volume] in S raymond or PlasmaOrdered By: Jason Mercado on 10-06-2023 Chloride [Moles/Vol] 102 mmol/L 98-[address] [facility] Color Auto (U)Ordered By: Harpal Mercado on 10-06-2023 Color (U) Yellow Yellow [facility] Creatine kinase [Enzymatic a ctivity/volume] in Serum or PlasmaOrdered By: Jason Mercado on 10-06-2023 CK [Catalytic activity/Vol] 60 U/L 30-223 [facility] Creatinine [Mass/volume] in Serum or PlasmaOrdered By: Jason Mercado on 10-06-2023 Creatinine [Mass/Vol] 1.86 mg/dL 0.70-1.30 [facility] Eosinophils Auto (Bld) [#/Vo l]Ordered By: Jason Mercado on 10-06-2023 Eosinophils (Bld) [#/Vol] 0.2 10*3/uL 0.0-0.45 [facility] Eosinophils/100 WBC Auto (Bl d)Ordered By: Jason Mercado on 10-06-2023 Eosinophils/100 WBC (Bld) 3.0 % . [facility] Erythrocyte distribution wid th Auto (RBC) [Ratio]Ordered By: Jason Mercado on 10-06-2023 Erythrocyte distribution width (RBC) [Ratio] 18.3 % 12.0-14.8 [facility] Glucose [Mass/volume] in Ser um or PlasmaOrdered By: Jason Mercado on 10-06-2023 Glucose [Mass/Vol] 243 mg/dL 70-100 [facility] Comment on above: ADA recommended refe rence rangeRandom Glucose Reference Range is dependent on time and content of last meal. Glucose of more than 200 mg/dL in a nonstressed, ambulatory subject supports the diagnosis of Diabetes Mellitus. Hematocrit Auto (Bld) [Volum e fraction]Ordered By: Jason Mercado on 10-06-2023 Hematocrit (Bld) [Volume fraction] 40.5 % 38.8-50.0 [facility] Hemoglobin [Mass/volume] in BloodOrdered By: Jason Mercado on 10-06-2023 Hemoglobin (Bld) [Mass/Vol] 12.9 g/dL 13.0-17.0 [facility] INR in Platelet poor plasma by Coagulation assayOrdered By: Jason Mercado on 10-06-2023 INR Coag (PPP) [Relative time] 1.0 {INR} [facility] Comment on above: INR Therapeutic Rang e [...] on 10-06-2023 Ketones (U) [Mass/Vol] Negative Negative [facility] Laboratory - Chemistry and C hemistry - challengeOrdered By: Jason Mercado on 10-06-2023 CO2 [Moles/Vol] 30.8 mmol/L 24.0-29.0 [facility] HCO3 (Bld) [Moles/Vol] 28.8 mmol/L 23.0-29.0 [facility] - UrinalysisOrder ed By: Jason Mercado on 10-06-2023 Hyaline casts LM Ql (Urine sed) 0-8 [LPF] 0-8 [facility] Lactate [Moles/volume] in Se rum or PlasmaOrdered By: Jason Mercado on 10-06-2023 Lactate [Moles/Vol] 0.7 mmol/L 0.5-2.2 [facility] Leukocytes [#/volume] correc maria guadalupe for nucleated erythrocytes in Blood by Automated counOrdered By: Jason Mercado on 10-06-2023 WBC corrected for nucl RBC Auto (Bld) [#/Vol] 7.0 10*3/uL 4.1-10.5 [facility] Lymphocytes Auto (Bld) [#/Vo l]Ordered By: Jason Mercado on 10-06-2023 Lymphocytes (Bld) [#/Vol] 0.8 10*3/uL 1.00-4.8 [facility] Lymphocytes/100 WBC Auto (Bl d)Ordered By: Jason Mercado on 10-06-2023 Lymphocytes/100 WBC (Bld) 11.2 % . [facility] MCH Auto (RBC) [Entitic mass ]Ordered By: Jason Mercado on 10-06-2023 MCH (RBC) [Entitic mass] 27.3 pg 27.5-35.2 [facility] MCHC Auto (RBC) [Mass/Vol]Or dered By: Jason Mercado on 10-06-2023 MCHC (RBC) [Mass/Vol] 31.9 g/dL 32.5-35.6 [facility] MCV Auto (RBC) [Entitic vol] Ordered By: Jason Mercado on 10-06-2023 MCV (RBC) [Entitic vol] 85.6 fL 83.5-101 [facility] Monocyte distribution width [Entitic volume] in Blood by AutomatedOrdered By: Jason Mercado on 10-06-2023 Monocyte distribution width Auto (Bld) [Entitic vol] 17.40 % 0.00-20.00 [facility] Monocytes Auto (Bld) [#/Vol] Ordered By: Jason Mercado on 10-06-2023 Monocytes (Bld) [#/Vol] 0.7 10*3/uL 0.0-0.8 [facility] Monocytes/100 WBC Auto (Bld) Ordered By: Jason Mercado on 10-06-2023 Monocytes/100 WBC (Bld) 10.0 % . [facility] Natriuretic peptide B [Mass/ Vol]Ordered By: Jason Mercado on 10-06-2023 Natriuretic peptide B (Bld) [Mass/Vol] 131.0 pg/mL 5-100 [facility] Neutrophils Auto (Bld) [#/Vo l]Ordered By: Jason Mercado on 10-06-2023 Neutrophils (Bld) [#/Vol] 5.2 10*3/uL 1.8-7.7 [facility] Neutrophils/100 WBC Auto (Bl d)Ordered By: Jason Mercado on 10-06-2023 Neutrophils/100 WBC (Bld) 74.8 % . [facility] Nitrite Test strip Ql (U)Ord ered By: Jason Mercado on 10-06-2023 Nitrite Ql (U) Negative Negative [facility] No Panel InformationOrdered By: Jason Mercado on 10-06-2023 Blood Gas Critical Value See comment [facility] Comment on above: Critical Value dickerson d on: 10/06/2023 at 21:16 Blood Gas Liter Flow [address] [facility] Blood Gas Sample Site Venous [facility] FiO2 45% % [facility] Oxygen Delivery Device Nasal cannula [facility] Venous Blood Base Excess 0.4 mmol/L -3.0-3.0 [facility] Venous Blood Oxygen Saturation 81.5 % 73.0-76.0 [facility] Venous Blood Partial Pressure CO2 63.9 mm[Hg] 38.0-50.0 [facility] Venous Blood pH 7.27 7.32-7.43 [facility] Estimated GFR (CKD-EPI) 39.912 mL/Min [facility] Creatinine Clearance (Chem 57.52 [facility] Nucleated erythrocytes [Pres ence] in Blood by Automated countOrdered By: Jason Mercado on 10-06-2023 Nucleated RBC Auto Ql (Bld) 0.1 /100{WBC} 0-0.5 [facility] Platelet mean volume Auto (B ld) [Entitic vol]Ordered By: Jason Mercado on 10-06-2023 Platelet mean volume (Bld) [Entitic vol] 6.8 fL 6.6-10.1 [facility] Platelets Auto (Bld) [#/Vol] Ordered By: Jason Mercado on 10-06-2023 Platelets (Bld) [#/Vol] 236 10*3/uL 150-450 [facility] Potassium [Moles/volume] in Serum or PlasmaOrdered By: Jason Mercado on 10-06-2023 Potassium [Moles/Vol] 5.6 mmol/L 3.5-5.1 [facility] Protein Auto test strip (U) [Mass/Vol]Ordered By: Jason Mercado on 10-06-2023 Protein (U) [Mass/Vol] 100 mg/dL Negative [facility] Prothrombin time (PT)Ordered By: Jason Mercado on 10-06-2023 PT Coag (PPP) [Time] 11.4 s 9.0-12.[address] [facility] Comment on above: A hematocrit value g reater than 55% may lead to inaccurate results in coagulation testing. Patients having hematocrit values >55% require a special collection tube for coagulation studies. Please contact the laboratory at [phone] for redraw instructions. RBC Auto (Bld) [#/Vol]Ordere d By: Jason Mercado on 10-06-2023 RBC (Bld) [#/Vol] 4.73 10*6/uL 3.90-5.60 [facility] Serum or plasma anion gap de terminationOrdered By: Jason Mercado on 10-06-2023 Anion gap [Moles/Vol] 10.4 mmol/L 6.0-15.0 [facility] Sodium [Moles/volume] in Ser um or PlasmaOrdered By: Jason Mercado on 10-06-2023 Sodium [Moles/Vol] 135 mmol/L 136-145 [facility] Specific gravity Auto test s trip (U) [Rel density]Ordered By: Jason Mercado on 10-06-2023 Specific gravity (U) [Rel density] 1.013 1.001-1.030 [facility] Squamous epithelial cells de tection in urine sediment by light microscopyOrdered By: Jason Mercado 10-06-2023 Epithelial cells.squamous LM Ql (Urine sed) 0-1 [HPF] 0-2 [facility] Troponin I.cardiac [Mass/vol ume] in Serum or Plasma by Detection limit <= 0.01 ng/Ordered By: Jason Mercado on 10-06-2023 Troponin I.cardiac DL <= 0.01 ng/mL [Mass/Vol] 8.2 pg/mL 0.0-20.0 [facility] Urea nitrogen [Mass/volume] in Serum or PlasmaOrdered By: Jason Mercado on 10-06-2023 Urea nitrogen [Mass/Vol] 53 mg/dL 7-25 [facility] Urine bacteria detection by automated methodOrdered By: Jason Mercado 10-06-2023 Bacteria Auto Ql (U) None seen None Seen [facility] Urine clarity by refractomet ry automatedOrdered By: Jason Mercado on 10-06-2023 Clarity Refractometry automated (U) Clear Clear [facility] Urine glucose measurement by automated test strip (mass/volume)Ordered By: Jason Mercado on 10-06-2023 Glucose Auto test strip (U) [Mass/Vol] 100 mg/dL Normal [facility] Urine hemoglobin detection b y automated test stripOrdered By: Jason Mercado on 10-06-2023 Hemoglobin Auto test strip Ql (U) 3+ Negative [facility] Urine leukocyte esterase det ection by automated test stripOrdered By: Jason Mercado on 10-06-2023 Leukocyte esterase Auto test strip Ql (U) Negative Negative [facility] Urobilinogen Auto test strip (U) [Mass/Vol]Ordered By: Jason Mercado on 10-06-2023 Urobilinogen (U) [Mass/Vol] Normal mg/dL Normal [facility] WBC Auto (Bld) [#/Vol]Ordere d By: Jason Mercado on 10-06-2023 WBC (Bld) [#/Vol] 7.0 10*3/uL 4.1-10.5 [facility] pH Auto test strip (U)Ordere d By: Jason Mercado on 10-06-2023 pH (U) 5.0 [pH] 5.0-9.0 [facility] Ambulatory Visit Summaryon 0 10-05-2023 Ambulatory Visit Summary Normal [address], [address] [place] [address]- \.br\ 2023 9:00 AM EDT \.br\ With:\.br\ Where: [facility]\.br\ Monday 1:15 PM EDT \.br\ With:\.br\ Where: [facility]\.br\ Medications\.br\ What How Much [...] day\.br\ Unchanged Misc Prescription (Freestyle Sage 2 [place]) See instructions Use daily with sensor \.br\ Unchanged Misc Prescription (Freestyle Sage 2 Sensors) See instructions Apply one q 14 days \.br\ Unchanged Misc Prescription (Glucometer test strips) See instructions Test TID DX E11.40 on insulin \.br\ Unchanged Misc Prescription (Glucometer) See instructions Diabetes mellitus with neuropathy Dispense 1 Glucometer \.br\ Unchanged Misc Prescription (Insulin Pen [place] 31g x 8 mm) See instructions Use [...] for choosing us for your care.\.br\ \.br\ [facility] Consent for Procedure/Surger yon 10-05-2023 Consent for Procedure/Surgery [id number]#1 .00TIFF [facility] Consent for Treatmenton 09-21 Consent for Treatment [id number]#1 .00TIFF [facility] HBOon 10-04-2023 HBO [id number]# 1.00TIFF [facility] Multi-Wound Charton 10-04-19 24 Multi-Wound Chart [id number]# 1.00TIFF [facility] Nursing Assessment - Woundon 10-04-2023 Nursing Assessment - Wound [id number]# 1.00TIFF [facility] Nursing Note - Woundon 10-04 Nursing Note - Wound [id number]# 1.00TIFF [facility] Physician Orderon 10-04-2023 Physician Order [id number]# 1.00TIFF [facility] Physician Order [id number]# 2.00TIFF [facility] Procedure - Woundon 10-04-19 Procedure - Wound [id number]# 1.00TIFF [facility] Progress Note - Woundon 09-21 Progress Note - Wound [id number]# 2.00TIFF [facility] Screenson 10-03-2023 Screens [id number]# 1.00TIFF [facility] CHEMISTRYOrdered By: Lab ROP User on 10-02-2023 Glucose [Mass/Vol] 224 mg/dL High 55 - 99 mg/dL FT C POC Subsection POC Device SN [id number] [address] [facility] POC Subsection POC User ID [id number] [address] [facility] POC Subsection POC Username Deja Boothe Invalid Interpretation Code [facility] POC Subsection Capillary Glucose POCon 09-21 Glucose [Mass/Vol] 224 mg/dL High 55-99 [facility] Comment on above: Performed By: #### 2 [id number] ####[facility] [address] [place] [address] Patient Educationon 10-02-19 24 Patient Education [facility] Pre-Certification Formon Pre-Certification Form [id number]#1 .00TIFF [facility] Urology Office/Clinic Noteon 10-02-2023 Urology Office/Clinic Note Normal [facility] Comment on above: Result Comment: Elec tronically Signed By: BRYAN Bahena APRN, Gisselle Glasgow\.br\Date and Time Signed: 10/02/23 07:51 EST Consent for Procedure/Surger yon 09-28-2023 Consent for Procedure/Surgery [id number]#1 .00TIFF [facility] Correspondence - Woundon Correspondence - Wound [id number]#1 .00TIFF [facility] Correspondence - Wound [id number]#1 .00TIFF [facility] Coding Queryon 09-27-2023 Coding Query [id number]# 1.00TIFF [facility] Insurance Correspondenceon 0 09-27-2023 Insurance Correspondence [id number]#1 .00TIFF [facility] C Urineon 09-26-2023 Bacteria identified Cx Nom (U) Normal [facility] Comment on above: Performed By: #### 2 [id number], [id number] ####[facility] [address] [place] [address] Insurance Correspondenceon 0 09-25-2023 Insurance Correspondence [id number]#1 .00TIFF Normal [facility] BMPon 09-24-2023 Anion gap [Moles/Vol] 11 mmol/L Normal 6-16 [facility] Comment on above: Performed By: #### 1 [id number], 8119518, 3820931 ####[facility] [address] [place] [address] BUN/Creat Ratio 29 No Units High 10-20 [facility] Comment on above: Performed By: #### 1 [id number], 3801115, 9075921 ####[facility] [address] [place] [address] Calcium [Mass/Vol] 8.7 mg/dL Low 8.9-11.1 [facility] Comment on above: Performed By: #### 1 7678893, 7448856, 2444947 ####[facility] [address] [place] [address] Chloride [Moles/Vol] 103 mmol/L Normal 101-[address] [facility] Comment on above: Performed By: #### 1 1512325, 1263657, 7379567 ####[facility] [address] [place] [address] CO2 [Moles/Vol] 28 mmol/L Normal 21-31 [facility] Comment on above: Performed By: #### 1 1589286, 7258886, 5593195 ####[facility] [address] [place] [address] Creatinine [Mass/Vol] 1.7 mg/dL High 0.5-1.3 [facility] Comment on above: Performed By: #### 1 1163255, 3762902, 9421483 ####[facility] [address] [place] [address] Glucose [Mass/Vol] 280 mg/dL High 55-199 [facility] Comment on above: Performed By: #### 1 6339410, 9023982, 3978665 ####[address] [place] [address] Potassium [Moles/Vol] 4.9 mmol/L Normal 3.5-5.3 [facility] Comment on above: Performed By: #### 1 0445832, 6240703, 5838929 ####[address] [address] Sodium [Moles/Vol] 137 mmol/L Normal 135-145 [facility] Comment on above: Performed By: #### 1 2047809, 5187735, 1101712 ####[address] [address] Urea nitrogen [Mass/Vol] 50 mg/dL High 5-21 [facility] Comment on above: Performed By: #### 1 5013481, 4493155, 0249940 ####[address] [address] CBC w/ Auto Diffon 4 Basophil Absolute 0.0 E9/L Normal 0.0-0.2 [facility] Comment on above: Performed By: #### 1 7391420, 9969115, 0200908 ####[address] [address] Basophils/100 WBC (Bld) 0.5 % Normal 0.0-2.0 [facility] Comment on above: Performed By: #### 1 0458934, 3516876, 9360310 ####[address] [address] Eos Absolute 0.3 E9/L Normal 0.0-0.5 [facility] Comment on above: Performed By: #### 1 9894945, 7811028, 4535217 ####[address] [address] Eosinophils/100 WBC (Bld) 4.7 % Normal 0.0-8.0 [facility] Comment on above: Performed By: #### 1 7694620, 6638811, 3725590 ####[address] [address] Erythrocyte distribution width (RBC) [Ratio] 17.8 % High 10.9-14.2 [facility] Comment on above: Performed By: #### 1 5301698, 6806334, 4380481 ####[place] [address] Hematocrit (Bld) [Volume fraction] 44.0 % Normal 37.7-49.0 [facility] Comment on above: Performed By: #### 1 3443580, 5277339, 2481259 ####[place] [address] Hemoglobin (Bld) [Mass/Vol] 13.9 g/dL Normal 13.5-17.5 [facility] Comment on above: Performed By: #### 1 2595782, 7602242, 9530596 ####[place] [address] Lymph Absolute 1.1 E9/L Normal 1.0-4.0 [facility] Comment on above: Performed By: #### 1 1528754, 7379167, 1605298 ####[place] [address] Lymphocytes/100 WBC (Bld) 20.1 % Normal 14.0-50.0 [facility] Comment on above: Performed By: #### 1 0020984, 9008189, 9096483 ####[address] [address] MCH (RBC) [Entitic mass] 27.3 pg Normal 27.0-34.0 [facility] Comment on above: Performed By: #### 1 8377284, 8375184, 3829282 ####[place] [address] MCHC (RBC) [Mass/Vol] 31.9 g/dL Normal 31.4-36.0 [facility] Comment on above: Performed By: #### 1 7688207, 6969802, 9563352 ####[facility] [address] [place] [address] MCV (RBC) [Entitic vol] 85.7 fL Normal 80.0-100.0 [facility] Comment on above: Performed By: #### 1 2508214, 3780570, 6954728 ####[address] [address] [place] Absolute 0.6 E9/L Normal 0.2-1.0 [facility] Comment on above: Performed By: #### 1 3698028, 0227580, 1829064 ####[address] [address] Monocytes/100 WBC (Bld) 11.0 % Normal 4.0-14.0 [facility] Comment on above: Performed By: #### 1 7389843, 9653313, 3223315 ####[address] [address] Neutro Absolute 3.5 E9/L Normal 2.0-7.5 [facility] Comment on above: Performed By: #### 1 3527866, 8094326, 6800563 ####[address] [address] Neutro Auto 63.7 % Normal 36.0-75.0 [facility] Comment on above: Performed By: #### 1 0590540, 3284420, 3940100 ####[address] [address] Platelet 254.0 E9/L Normal 150.0-500.0 [facility] Comment on above: Performed By: #### 1 7945533, 6281652, 6545404 ####[address] [address] Platelet mean volume (Bld) [Entitic vol] 6.9 fL Normal 6.4-10.8 [facility] Comment on above: Performed By: #### 1 8839204, 6460735, 9989457 ####[facility] [address] [place] [address] RBC 5.1 E12/L Normal 4.3-5.9 [facility] Comment on above: Performed By: #### 1 3779660, 7149461, 4281151 ####[facility] [address] [place] [address] WBC 5.5 E9/L Normal 4.0-11.0 [facility] Comment on above: Performed By: #### 1 9063174, 4660443, 6270385 ####[facility] [address] [place] [address] CHEMISTRYOrdered By: SYSTEM SYSTEM on 09-24-2023 Anion [...] Chem Consent for Treatmenton Consent for Treatment [id number]#1 .00TIFF Normal [facility] Discharge Instructionson Discharge Instructions [id number]# 1.00TIFF Normal [facility] ED Clinical Summaryon 2023 ED Clinical Summary Normal Gina srinivasan [facility] ED Note-Physicianon 09-24-19 ED Note-Physician Normal [facility] Comment on above: Result Comment: Elec tronically Signed By: Jose Miguel Phan DO\.br\Date and Time Signed: 09/24/23 21:39 EST ED Patient Education Noteon 09-24-2023 ED Patient Education Note Normal [facility] ED Patient Summaryon 024 ED Patient Summary Normal [facility] HEMATOLOGYOrdered By: SYSTEM SYSTEM on 09-24-2023 Basophil [...] Normal 80.0 - 100.0 fL Remisol Heme [place] Absolute 0.6 E9/L Normal 0.2 - 1.0 [...] Urobilinogen Qn (U) 0.2 {Itz'U}/dL Normal 0.0-1.0 [facility] Comment on above: Performed By: #### 2 408144, [id number] ####[facility] [address] [place] [address] Bacteria LM Ql (Urine sed) TRACE Normal Trace [facility] Comment on above: Performed By: #### 2 215163, 83356650 ####[facility] [address] [place] [address] Bilirubin Ql (U) 1+ Abnormal Negative [facility] Comment on above: Performed By: #### 2 260906, 83687283 ####[facility] [address] [place] [address] Clarity (U) CLOUDY Abnormal Clear [facility] Comment on above: Performed By: #### 2 760643, 22486537 ####[facility] [address] [place] [address] Color (U) RED Abnormal Yellow [facility] Comment on above: Performed By: #### 2 346156, 53546706 ####[facility] [address] [place] [address] Epithelial cells.squamous LM.HPF (Urine sed) [#/Area] 3-4 Normal 0-2 [facility] Comment on above: Performed By: #### 2 546479, [id number] ####[facility] [address] [place] [address] Glucose Test strip (U) [Mass/Vol] 2+ Abnormal Negative [facility] Comment on above: Performed By: #### 2 590388, 52410152 ####[facility] [address] [place] [address] Hemoglobin Ql (U) 3+ Abnormal Negative [facility] Comment on above: Performed By: #### 2 979822, 81694296 ####[place] [address] Ketones (U) [Mass/Vol] Negative Normal Negative [facility] Comment on above: Performed By: #### 2 642957, 93844012 ####[facility] [address] [place], [place] [address] Soudan.plasma/Lithi um.RBC (Bld) [Mass ratio] >75 Abnormal 0-3 [facility] Comment on above: Performed By: #### 2 245968, 14956753 ####[facility] [address] [place] [address] Nitrite Ql (U) Positive Abnormal Negative [facility] Comment on above: Performed By: #### 2 245798, 75512975 ####[facility] [address] [place] [address] pH (U) 5.5 [pH] Invalid Interpretation Code 5.0-9.0 [facility] Comment on above: Performed By: #### 2 541517, [id number] ####[facility] [address] [place] [address] Protein (U) [Mass/Vol] 3+ Abnormal Negative [facility] Comment on above: Performed By: #### 2 923847, 07831199 ####[address] [address] Specific gravity (U) [Rel density] 1.025 Invalid Interpretation Code 1.005-1.030 [facility] Comment on above: Performed By: #### 2 088944, [id number] ####[facility] [address] [place] [address] Type of Urine collection method Catheter Normal [facility] Comment on above: Performed By: #### 2 694066, 98068304 ####[facility] [address] [place] [address] WBC Auto Ql (U) Negative Normal Negative [facility] Comment on above: Performed By: #### 2 317765, 01482085 ####[place] [address] WBC LM.HPF (Urine sed) [#/Area] 0-5 Normal 0-5 [facility] Comment on above: Performed By: #### 2 199865, [id number] ####[facility] [address] [place] [address] URINALYSISOrdered By: Richa Quinn on 09-24-2023 Bacteria [...] PM) Normal Negative [facility] UA Auto SS Soudan.plasma/Lithi um.RBC (Bld) [Mass ratio] >75 /HPF Invalid Interpretation Code 0-3/HPF [facility] UA Auto SS Nitrite Ql (U) Positive *ABN* (09/24/23 8:26 PM) Invalid Interpretation Code Negative [facility] UA Auto SS pH (U) 5.5 *NA* (09/24/23 8:26 PM) Invalid Interpretation Code 5.0 - 9.0 [facility] UA Auto SS Protein (U) [Mass/Vol] 3+ *ABN* (09/24/23 8:26 PM) Invalid Interpretation Code Negative [facility] UA Auto SS Specific gravity (U) [Rel density] 1.025 *NA* (09/24/23 8:26 PM) Invalid Interpretation Code 1.005 - 1.030 [facility] UA Auto SS UA Spec Desc Catheter (09/24/23 8:26 PM) Normal [facility]A Auto SS Urobilinogen Qn (U) 0.6640572 {Itz'U}/dL Normal 0.0 - 1.0 EU/dL [facility] UA Auto SS WBC Auto Ql (U) Negative (09/24/23 8:26 PM) Normal Negative FT UA Auto SS WBC LM.HPF (Urine sed) [#/Area] 0-5 /HPF Normal 0-5/HPF FT UA Auto SS eGFRon 09-24-2023 eGFR 44 mL/min/1.73 m2 Low >=59 [facility] Comment on above: Order Comment: Order added by Discern Expert. Performed By: #### 1 [id number], [id number], [id number] ####[facility] [address] [place] [address] Insurance Correspondence Off iceon 09-20-2023 Insurance Correspondence Office [id number]# 1.00TIFF Normal [facility] C Blood Charcoalon Blood Culture Charcoal Normal [facility] Comment on above: Performed By: #### 1 [id number] ####[facility] [address] [place] [address] Discharge Instructionson Discharge Instructions [id number]# 1.00TIFF Normal [facility] Consent for Procedure/Surger yon 09-18-2023 Consent for Procedure/Surgery [id number]#1 .00TIFF Normal [facility] Consent for Treatmenton 08-22 Consent for Treatment [id number]#1 .00TIFF Normal [facility] Discharge Instructionson Discharge Instructions [id number] #1.00TIFF Normal [facility] ED Clinical Summaryon 2023 ED Clinical Summary Normal [facility] ED Note-Physicianon 09-17-19 24 ED Note-Physician Normal [facility] Comment on above: Result Comment: Elec tronically Signed By: Shira Snider, Alejandro \.br\Date and Time Signed: 09/17/23 19:00 EST ED Patient Education Noteon 09-17-2023 ED Patient Education Note Normal [facility] ED Patient Summaryon 024 ED Patient Summary Normal [facility] BMPon 09-16-2023 Anion gap [Moles/Vol] 10 mmol/L Normal 6-16 [facility] Comment on above: Performed By: #### 2 133193, [id number], 9039038, 6713440 ####[facility] [address] [place] [address] BUN/Creat Ratio 24 No Units High 10-20 [facility] Comment on above: Performed By: #### 2 700478, 35126164, 7140060, 0100787 ####[facility] [address] [place] [address] Calcium [Mass/Vol] 8.2 mg/dL Low 8.9-11.1 [facility] Comment on above: Performed By: #### 2 438998, 95584880, 4350516, 9729303 ####[facility] [address] [place] [address] Chloride [Moles/Vol] 97 mmol/L Low 101-[address] [facility] Comment on above: Performed By: #### 2 605379, 64612143, 4953578, 4571090 ####[facility] [address] [place] [address] CO2 [Moles/Vol] 33 mmol/L High 21-31 [facility] Comment on above: Performed By: #### 2 725166, 62883857, 3555676, 6779887 ####[facility] [address] [place] [address] Creatinine [Mass/Vol] 1.6 mg/dL High 0.5-1.3 [facility] Comment on above: Performed By: #### 2 699307, 94072417, 1400264, 8994912 ####[facility] [address] [place] [address] Glucose [Mass/Vol] 191 mg/dL Normal 55-199 [facility] Comment on above: Performed By: #### 2 876127, 47561290, 7348889, 9625090 ####[facility] [address] [place] [address] Potassium [Moles/Vol] 4.0 mmol/L Normal 3.5-5.3 [facility] Comment on above: Performed By: #### 2 304392, 10858221, 3611839, 8180987 ####[facility] [address] [place] [address] Sodium [Moles/Vol] 136 mmol/L Normal 135-145 [facility] Comment on above: Performed By: #### 2 967970, 25466372, 3589360, 2470853 ####[facility] [address] [place] [address] Urea nitrogen [Mass/Vol] 38 mg/dL High 5-21 [facility] Comment on above: Performed By: #### 2 979820, 09621444, 0362055, 5561828 ####[address] [place] [address] CBC w/ Auto Diffon 4 Basophil Absolute 0.0 E9/L Normal 0.0-0.2 [facility] Comment on above: Performed By: #### 2 901682, 18980171, 2264484, 8310916 ####[address] [address] Basophils/100 WBC (Bld) 0.7 % Normal 0.0-2.0 [facility] Comment on above: Performed By: #### 2 403622, 22095001, 7104392, 4748435 ####[address] [address] Eos Absolute 0.4 E9/L Normal 0.0-0.5 [facility] Comment on above: Performed By: #### 2 475413, 45434813, 1880674, 5845152 ####[address] [address] Eosinophils/100 WBC (Bld) 6.9 % Normal 0.0-8.0 [facility] Comment on above: Performed By: #### 2 118586, 89158502, 2060305, 7740284 ####[address] [address] Erythrocyte distribution width (RBC) [Ratio] 17.4 % High 10.9-14.2 [facility] Comment on above: Performed By: #### 2 904126, 35381295, 7248975, 8498928 ####[address] [address] Hematocrit (Bld) [Volume fraction] 44.0 % Normal 37.7-49.0 [facility] Comment on above: Performed By: #### 2 126435, 70781196, 9687837, 4838282 ####[address] [address] Hemoglobin (Bld) [Mass/Vol] 13.8 g/dL Normal 13.5-17.5 [facility] Comment on above: Performed By: #### 2 191979, 27154086, 2245064, 4365706 ####[address] [place] [address] Lymph Absolute 1.4 E9/L Normal 1.0-4.0 [facility] Comment on above: Performed By: #### 2 842829, 86321292, 1831867, 4422128 ####[address] [address] Lymphocytes/100 WBC (Bld) 21.5 % Normal 14.0-50.0 [facility] Comment on above: Performed By: #### 2 554099, 80537306, 7532612, 0400116 ####[address] [address] MCH (RBC) [Entitic mass] 27.0 pg Normal 27.0-34.0 [facility] Comment on above: Performed By: #### 2 105320, 40447484, 9279463, 0702742 ####[address] [address] MCHC (RBC) [Mass/Vol] 31.3 g/dL Low 31.4-36.0 [facility] Comment on above: Performed By: #### 2 862987, 69858236, 8749178, 6925574 ####[address] [address] MCV (RBC) [Entitic vol] 86.3 fL Normal 80.0-100.0 [facility] Comment on above: Performed By: #### 2 715418, 80350462, 7934112, 8921677 ####[address] [address] [place] Absolute 0.8 E9/L Normal 0.2-1.0 [facility] Comment on above: Performed By: #### 2 108463, 88530931, 1687784, 8092933 ####[address] [place] [address] Monocytes/100 WBC (Bld) 13.0 % Normal 4.0-14.0 [facility] Comment on above: Performed By: #### 2 689255, 99277943, 6049406, 1054776 ####[address] [address] Neutro Absolute 3.8 E9/L Normal 2.0-7.5 [facility] Comment on above: Performed By: #### 2 385023, 03669815, 8247143, 9360085 ####[address] [address] Neutro Auto 57.9 % Normal 36.0-75.0 [facility] Comment on above: Performed By: #### 2 468199, 04872395, 1881695, 8204967 ####[address] [address] Platelet 231.0 E9/L Normal 150.0-500.0 [facility] Comment on above: Performed By: #### 2 232429, 08526071, 2236482, 7277630 ####[address] [address] Platelet mean volume (Bld) [Entitic vol] 7.0 fL Normal 6.4-10.8 [facility] Comment on above: Performed By: #### 2 607216, 67709705, 7671669, 1426998 ####[address] [address] RBC 5.1 E12/L Normal 4.3-5.9 [facility] Comment on above: Performed By: #### 2 542811, 50198878, 7339625, 6900898 ####[address] [place] [address] WBC 6.5 E9/L Normal 4.0-11.0 [facility] Comment on above: Performed By: #### 2 805200, 42479134, 5957276, 1955055 ####[facility] [address] [place] [address] Capillary Glucose POCon 08-22 Glucose [Mass/Vol] 198 mg/dL High 55-99 [facility] Comment on above: Result Comment: Thelma maxwell RN/ Performed By: #### 2 [id number] ####[facility] [address] [place] [address] Inpatient Clinical Summaryon 09-16-2023 Inpatient Clinical Summary Normal [facility] Inpatient Patient Summaryon 09-16-2023 Inpatient Patient Summary Normal [facility] Inpatient Patient Summary Normal [facility] Interdisciplinary Note - Yimi e Manageron 09-16-2023 Interdisciplinary Note - Spa Director/Finance Patient DC before CRM rounded in room today Normal [facility] Comment on above: Result Comment: Elec tronically Signed By: Jodee Giang\.br\Date and Time Signed: 09/16/23 11:26 EST Magnesiumon 09-16-2023 Magnesium [Mass/Vol] 1.9 mg/dL Normal 1.3-2.[address] [facility] Comment on above: Performed By: #### 2 559494, 11153997, 5397703, 4211386 ####[facility] [address] [place] [address] Monitor Recordon 09-16-2023 Monitor Record [id number]# 1.00TIFF Normal [facility] Monitor Record [id number]# 1.00TIFF Normal [facility] Monitor Record [id number]# 1.00TIFF Normal [facility] eGFRon 09-16-2023 eGFR 48 mL/min/1.73 m2 Low >=59 [facility] Comment on above: Order Comment: Order added by Discern Expert. Performed By: #### 2 817680, 11101944, 2916979, 9719773 ####[facility] [address] [place] [address] BMPon 09-15-2023 Anion gap [Moles/Vol] 8 mmol/L Normal 6-16 [facility] Comment on above: Performed By: #### 2 012312, 5575072, 02209496 ####[facility] [address] [place] [address] BUN/Creat Ratio 25 No Units High 10-20 [facility] Comment on above: Performed By: #### 2 236906, 8947096, 02963096 ####[facility] [address] [place] [address] Calcium [Mass/Vol] 8.4 mg/dL Low 8.9-11.1 [facility] Comment on above: Performed By: #### 2 332713, 4171840, 07073459 ####[facility] [address] [place] [address] Chloride [Moles/Vol] 94 mmol/L Low 101-[address] [facility] Comment on above: Performed By: #### 2 449732, 4016292, 77453602 ####[facility] [address] [place] [address] CO2 [Moles/Vol] 38 mmol/L High 21-31 [facility] Comment on above: Performed By: #### 2 192147, 1784490, 13965437 ####[facility] [address] [place] [address] Creatinine [Mass/Vol] 1.7 mg/dL High 0.5-1.3 [facility] Comment on above: Performed By: #### 2 535335, 3052543, 05045514 ####[facility] [address] [place] [address] Glucose [Mass/Vol] 154 mg/dL Normal 55-199 [facility] Comment on above: Performed By: #### 2 067439, 1373439, 16195628 ####[facility] [address] [place] [address] Potassium [Moles/Vol] 4.1 mmol/L Normal 3.5-5.3 [facility] Comment on above: Performed By: #### 2 753485, 2158363, 42080285 ####[facility] [address] [place] [address] Sodium [Moles/Vol] 136 mmol/L Normal 135-145 [facility] Comment on above: Performed By: #### 2 105221, 2740087, 23935009 ####[facility] [address] [place] [address] Urea nitrogen [Mass/Vol] 43 mg/dL High 5-21 [facility] Comment on above: Performed By: #### 2 444682, 1142699, 48202842 ####[address] [place] [address] C Woundon 09-15-2023 Wound Culture Normal [facility] Comment on above: Performed By: #### 2 598757 ####[address] [address] CBC w/ Auto Diffon 4 Basophil Absolute 0.0 E9/L Normal 0.0-0.2 [facility] Comment on above: Performed By: #### 2 177483 ####[address] [address] Basophils/100 WBC (Bld) 0.6 % Normal 0.0-2.0 [facility] Comment on above: Performed By: #### 2 855591 ####[address] [address] Eos Absolute 0.3 E9/L Normal 0.0-0.5 [facility] Comment on above: Performed By: #### 2 639462 ####[address] [address] Eosinophils/100 WBC (Bld) 5.0 % Normal 0.0-8.0 [facility] Comment on above: Performed By: #### 2 925816 ####[address] [place] [address] Erythrocyte distribution width (RBC) [Ratio] 17.9 % High 10.9-14.2 [facility] Comment on above: Performed By: #### 2 238365 ####[address] [address] Hematocrit (Bld) [Volume fraction] 45.0 % Normal 37.7-49.0 [facility] Comment on above: Performed By: #### 2 395479 ####[address] [address] Hemoglobin (Bld) [Mass/Vol] 14.3 g/dL Normal 13.5-17.5 [facility] Comment on above: Performed By: #### 2 498897 ####[address] [address] Lymph Absolute 1.3 E9/L Normal 1.0-4.0 [facility] Comment on above: Performed By: #### 2 108394 ####[address] [address] Lymphocytes/100 WBC (Bld) 19.3 % Normal 14.0-50.0 [facility] Comment on above: Performed By: #### 2 442856 ####[address] [address] MCH (RBC) [Entitic mass] 27.5 pg Normal 27.0-34.0 [facility] Comment on above: Performed By: #### 2 205000 ####[address] [address] MCHC (RBC) [Mass/Vol] 31.6 g/dL Normal 31.4-36.0 [facility] Comment on above: Performed By: #### 2 894776 ####[address] [address] MCV (RBC) [Entitic vol] 87.1 fL Normal 80.0-100.0 [facility] Comment on above: Performed By: #### 2 315214 ####[facility] [address] [address] [place] Absolute 0.7 E9/L Normal 0.2-1.0 [facility] Comment on above: Performed By: #### 2 789323 ####[facility] [address] [facility] [place] [address] Monocytes/100 WBC (Bld) 10.9 % Normal 4.0-14.0 [facility] Comment on above: Performed By: #### 2 868586 ####[facility] [address] [place] [address] Neutro Absolute 4.2 E9/L Normal 2.0-7.5 [facility] Comment on above: Performed By: #### 2 091814 ####[address] [place] [address] Neutro Auto 64.2 % Normal 36.0-75.0 [facility] Comment on above: Performed By: #### 2 558241 ####[address] [place] [address] Platelet 238.0 E9/L Normal 150.0-500.0 [facility] Comment on above: Performed By: #### 2 816592 ####[address] [place] [address] Platelet mean volume (Bld) [Entitic vol] 7.0 fL Normal 6.4-10.8 [facility] Comment on above: Performed By: #### 2 145210 ####[address] [place] [address] RBC 5.2 E12/L Normal 4.3-5.9 [facility] Comment on above: Performed By: #### 2 816598 ####[facility] [address] [facility] [place] [address] WBC 6.6 E9/L Normal 4.0-11.0 [facility] Comment on above: Performed By: #### 2 859339 ####[address] [place] [address] Capillary Glucose POCon 08-22 Glucose [Mass/Vol] 230 mg/dL High 55-99 [facility] Comment on above: Performed By: #### 2 70012899 ####[facility] [address] [facility] [place] [address] Glucose [Mass/Vol] 187 mg/dL High 55-99 [facility] Comment on above: Result Comment: Thelma maxwell RN/ Performed By: #### 2 03664982 ####[facility] [address] [place] [address] Glucose [Mass/Vol] 281 mg/dL High 55- [facility] Comment on above: Result Comment: Thelma maxwell RN/ Performed By: #### 2 [id number] ####[facility] [address] [facility] [place] [address] Glucose [Mass/Vol] 298 mg/dL High 55- [facility] Comment on above: Result Comment: Thelma BAE Performed By: #### 2 [id number] ####[facility] [address] [facility] [place] [address] Glucose [Mass/Vol] 167 mg/dL High - [facility] Comment on above: Result Comment: Thelma BAE Performed By: #### 2 [id number] ####[facility] [address] [place] [address] Interdisciplinary Note - Yimi e Manageron 09-15-2023 Interdisciplinary Note - Spa Director/Finance Normal [facility] Comment on above: Result Comment: Elec tronically Signed By: Sasha Garcia.br\Date and Time Signed: 09/15/23 15:52 EST Magnesiumon 09-15-2023 Magnesium [Mass/Vol] 1.7 mg/dL Normal 1.3-2.[address] [facility] Comment on above: Performed By: #### 2 328665, 2108586, 22909098 ####[facility] [address] [place] [address] Progress Note-Physicianon Progress Note-Physician Normal [facility] Comment on above: Result Comment: Elec tronically Signed By: Ida LYMAN, Pippa Mabry\.br\Date and Time Signed: 09/15/23 16:08 EST Progress Note-Physician Normal [facility] Comment on above: Result Comment: Elec tronically Signed By: Jose LYMAN, Kayla\.br\Date and Time Signed: 09/15/23 10:03 EST eGFRon 09-15-2023 eGFR 44 mL/min/1.73 m2 Low >=59 [facility] Comment on above: Order Comment: Order added by Discern Expert. Performed By: #### 2 230203, 2017506, [id number] ####[facility] [address] [place] [address] BMPon 09-14-2023 Anion gap [Moles/Vol] 13 mmol/L Normal 6-16 [facility] Comment on above: Performed By: #### 2 446132, 15398078 ####[facility] [address] [place] [address] BUN/Creat Ratio 24 No Units High 10-20 [facility] Comment on above: Performed By: #### 2 961553, 70644263 ####[facility] [address] [place] [address] Calcium [Mass/Vol] 8.6 mg/dL Low 8.9-11.1 [facility] Comment on above: Performed By: #### 2 083938, [id number] ####[facility] [address] [place] [address] Chloride [Moles/Vol] 94 mmol/L Low 101-[address] [facility] Comment on above: Performed By: #### 2 279000, 61011037 ####[facility] [address] [place] [address] CO2 [Moles/Vol] 33 mmol/L High 21-31 [facility] Comment on above: Performed By: #### 2 872410, 26411130 ####[facility] [address] [place] [address] Creatinine [Mass/Vol] 1.9 mg/dL High 0.5-1.3 [facility] Comment on above: Performed By: #### 2 844340, 97706322 ####[facility] [address] [facility] [place] [address] Glucose [Mass/Vol] 215 mg/dL High 55-199 [facility] Comment on above: Performed By: #### 2 245311, [id number] ####[facility] [address] [place] [address] Potassium [Moles/Vol] 4.3 mmol/L Normal 3.5-5.3 [facility] Comment on above: Performed By: #### 2 527528, 34817869 ####[facility] [address] [place] [address] Sodium [Moles/Vol] 136 mmol/L Normal 135-145 [facility] Comment on above: Performed By: #### 2 400742, 08284635 ####[facility] [address] [place] [address] Urea nitrogen [Mass/Vol] 46 mg/dL High 5-21 [facility] Comment on above: Performed By: #### 2 800541, [id number] ####[facility] [address] [place] [address] Anion gap [Moles/Vol] 9 mmol/L Normal 6-16 [facility] Comment on above: Performed By: #### 1 [id number], [id number] ####[facility] [address] [place] [address] BUN/Creat Ratio 26 No Units High 10-20 [facility] Comment on above: Performed By: #### 1 [id number], 2735025 ####[facility] [address]jolj[address]fx[address] [facility] [place] [address] Calcium [Mass/Vol] 8.7 mg/dL Low 8.9-11.1 [facility] [place] Comment on above: Performed By: #### 1 5266493, 2504076 ####[facility] [address] [place] [address] Chloride [Moles/Vol] 96 mmol/L Low 101-[address] [facility] Comment on above: Performed By: #### 1 4275982, 5924380 ####[facility] [address] [place] [address] CO2 [Moles/Vol] 35 mmol/L High 21-31 [facility] Comment on above: Performed By: #### 1 7055045, 5980263 ####[facility] [address] [place] [address] Creatinine [Mass/Vol] 1.8 mg/dL High 0.5-1.3 [facility] Comment on above: Performed By: #### 1 [id number], 4118280 ####[facility] [address] [place] [address] Glucose [Mass/Vol] 226 mg/dL High 55-199 [facility] [place] Comment on above: Performed By: #### 1 1614841, 0333315 ####[facility] [address] [place] [address] Potassium [Moles/Vol] 4.4 mmol/L Normal 3.5-5.3 [facility] [place] Comment on above: Performed By: #### 1 4238537, 6568682 ####[facility] [address] [place] [address] Sodium [Moles/Vol] 136 mmol/L Normal 135-145 [facility] [place] Comment on above: Performed By: #### 1 5808659, 1455373 ####[facility] [address] [place] [address] Urea nitrogen [Mass/Vol] 46 mg/dL High 5-21 [facility] [place] Comment on above: Performed By: #### 1 8108677, 6032721 ####[facility] [address]cl[address] [place] [address] Anion gap [Moles/Vol] 8 mmol/L Normal 6-16 [facility] Comment on above: Performed By: #### 2 284598, 7570484, 0285955, 60970678 ####[facility] [address] [place] [address] BUN/Creat Ratio 25 No Units High 10-20 [facility] Comment on above: Performed By: #### 2 701212, 6073267, 2227330, 85981097 ####[facility] [address] [place] [place] [address] Calcium [Mass/Vol] 8.3 mg/dL Low 8.9-11.1 [facility] [place] Comment on above: Performed By: #### 2 528841, 0792291, 9616747, 67648249 ####[facility] [address]of[address] [place] [address] Chloride [Moles/Vol] 97 mmol/L Low 101-[address] [facility] Comment on above: Performed By: #### 2 559859, 7289067, 9713135, 97957250 ####[facility] [address] [place] [address] CO2 [Moles/Vol] 36 mmol/L High 21-31 [facility] Comment on above: Performed By: #### 2 045830, 5008573, 4075188, 89721017 ####[facility] [address] [place] [address] Creatinine [Mass/Vol] 1.9 mg/dL High 0.5-1.3 [facility] Comment on above: Performed By: #### 2 691183, 4324102, 4099083, 13276879 ####[facility] [address] [place] [address] Glucose [Mass/Vol] 172 mg/dL Normal 55-199 [facility] [place] Comment on above: Performed By: #### 2 257188, 4667264, 7224619, [id number] ####[facility] [address] [place] [address] Potassium [Moles/Vol] 4.5 mmol/L Normal 3.5-5.3 [facility] [place] Comment on above: Performed By: #### 2 886801, 7557041, 1239344, 93887703 ####[facility] [address] [place] [address] Sodium [Moles/Vol] 136 mmol/L Normal 135-145 [facility] Comment on above: Performed By: #### 2 685221, 8630253, 8623438, 45157318 ####[facility] [address] [place] [address] Urea nitrogen [Mass/Vol] 47 mg/dL High 5-21 [facility] Comment on above: Performed By: #### 2 637913, 8622234, 7786865, 18951259 ####[facility] [address] [place] [address] Anion gap [Moles/Vol] 10 mmol/L Normal 6-16 [facility] Comment on above: Performed By: #### 1 7689626, 6158210 ####[address] [address] BUN/Creat Ratio 25 No Units High 10-20 [facility] Comment on above: Performed By: #### 1 9216523, 9573923 ####[facility] [address] [place] [address] Calcium [Mass/Vol] 8.3 mg/dL Low 8.9-11.1 [facility] Comment on above: Performed By: #### 1 8379272, 3780180 ####[facility] [address] [place] [address] Chloride [Moles/Vol] 96 mmol/L Low 101-[address] [facility] Comment on above: Performed By: #### 1 4354276, 9450475 ####[facility] [address] [place] [address] CO2 [Moles/Vol] 35 mmol/L High 21-31 [facility] Comment on above: Performed By: #### 1 4652818, 9779179 ####[facility] [address] [place] [address] Creatinine [Mass/Vol] 1.9 mg/dL High 0.5-1.3 [facility] Comment on above: Performed By: #### 1 8030027, 5174810 ####[facility] [address] [place] [address] Glucose [Mass/Vol] 284 mg/dL High 55-199 [facility] Comment on above: Performed By: #### 1 7518708, 5886676 ####[address] [address] Potassium [Moles/Vol] 4.6 mmol/L Normal 3.5-5.3 [facility] Comment on above: Performed By: #### 1 1080323, 8010716 ####[address] [address] Sodium [Moles/Vol] 136 mmol/L Normal 135-145 [facility] Comment on above: Performed By: #### 1 1178190, 5604412 ####[address] [address] Urea nitrogen [Mass/Vol] 48 mg/dL High 5-21 [facility] Comment on above: Performed By: #### 1 2196585, 5548289 ####[address] [address] CBC w/ Auto Diffon 4 Basophil Absolute 0.1 E9/L Normal 0.0-0.2 [facility] Comment on above: Performed By: #### 2 998531, 7145817, 5478308, 92282451 ####[address] [place] [address] Basophils/100 WBC (Bld) 1.0 % Normal 0.0-2.0 [facility] Comment on above: Performed By: #### 2 603759, 6245905, 6225977, 25401386 ####[address] [address] Eos Absolute 0.2 E9/L Normal 0.0-0.5 [facility] Comment on above: Performed By: #### 2 117637, 5280526, 1794032, 78660068 ####[address] [address] Eosinophils/100 WBC (Bld) 3.1 % Normal 0.0-8.0 [facility] Comment on above: Performed By: #### 2 224053, 8441842, 7665301, 38175030 ####[address] [address] Erythrocyte distribution width (RBC) [Ratio] 18.1 % High 10.9-14.2 [facility] Comment on above: Performed By: #### 2 723856, 8453901, 1593625, 98167594 ####[address] [address] Hematocrit (Bld) [Volume fraction] 42.0 % Normal 37.7-49.0 [facility] Comment on above: Performed By: #### 2 667492, 6872898, 3616200, 13747161 ####[address] [address] Hemoglobin (Bld) [Mass/Vol] 13.3 g/dL Low 13.5-17.5 [facility] Comment on above: Performed By: #### 2 619931, 8906644, 9830705, 74280163 ####[address] [address] Lymph Absolute 1.9 E9/L Normal 1.0-4.0 [facility] Comment on above: Performed By: #### 2 080089, 2930403, 8895008, 08214925 ####[address] [address] Lymphocytes/100 WBC (Bld) 23.5 % Normal 14.0-50.0 [facility] Comment on above: Performed By: #### 2 017051, 9213079, 5652860, 78897794 ####[address] [address] MCH (RBC) [Entitic mass] 27.8 pg Normal 27.0-34.0 [facility] Comment on above: Performed By: #### 2 623746, 4451472, 3273439, 34643054 ####[address] [address] MCHC (RBC) [Mass/Vol] 31.7 g/dL Normal 31.4-36.0 [facility] Comment on above: Performed By: #### 2 271553, 7041057, 1447268, 46964199 ####[address] [address] MCV (RBC) [Entitic vol] 87.6 fL Normal 80.0-100.0 [facility] Comment on above: Performed By: #### 2 116046, 9367448, 2755549, 13942726 ####[address] [address] [place] Absolute 0.8 E9/L Normal 0.2-1.0 [facility] Comment on above: Performed By: #### 2 343652, 1574953, 3565457, 67572571 ####[address] [address] Monocytes/100 WBC (Bld) 10.0 % Normal 4.0-14.0 [facility] Comment on above: Performed By: #### 2 912843, 6623985, 1930773, 35500613 ####[address] [address] Neutro Absolute 5.0 E9/L Normal 2.0-7.5 [facility] Comment on above: Performed By: #### 2 613728, 4924041, 2676095, 09254752 ####[address] [address] Neutro Auto 62.4 % Normal 36.0-75.0 [facility] Comment on above: Performed By: #### 2 538606, 1918616, 4520750, 27109938 ####[facility] [address] [place] [address] Platelet 217.0 E9/L Normal 150.0-500.0 [facility] Comment on above: Performed By: #### 2 317001, 4446750, 9729303, 29716982 ####[address] [address] Platelet mean volume (Bld) [Entitic vol] 6.8 fL Normal 6.4-10.8 [facility] Comment on above: Performed By: #### 2 031234, 4133930, 9626263, 24462764 ####[address] [address] RBC 4.8 E12/L Normal 4.3-5.9 [facility] Comment on above: Performed By: #### 2 298363, 9072894, 3842441, 71528914 ####[address] [address] WBC 7.9 E9/L Normal 4.0-11.0 [facility] Comment on above: Performed By: #### 2 785187, 2515782, 3955324, 51604082 ####[address] [address] [address] Abdomen/Pelvis w/o Contra ston 09-14-2023 CT Abdomen/Pelvis w/o Contrast Normal [facility] Capillary Glucose POCon 08-22 Glucose [Mass/Vol] 294 mg/dL High 55-99 [facility] Comment on above: Result Comment: Thelma BAE Performed By: #### 2 11838041 ####[address] [place] [address] Glucose [Mass/Vol] 244 mg/dL High 55-99 [facility] Comment on above: Result Comment: Thelma BAE Performed By: #### 2 [id number] ####[address] [place] [address] Glucose [Mass/Vol] 284 mg/dL High 55-99 [facility] Comment on above: Result Comment: Thelma maxwell RN/ Performed By: #### 2 68754669 ####[facility] [address] [place] [address] Glucose [Mass/Vol] 164 mg/dL High 55-99 [facility] Comment on above: Result Comment: Thelma maxwell RN/ Performed By: #### 2 [id number] ####[facility] [address] [place] [address] Interdisciplinary Note - Yimi e Manageron 09-14-2023 Interdisciplinary Note - Spa Director/Finance [facility] Comment on above: Result Comment: Elec tronically Signed By: Jodee Giang\.br\Date and Time Signed: 09/14/23 10:25 EST Interdisciplinary Note - Oscar n 09-14-2023 Interdisciplinary Note - OT OT [facility] six clicks score = SNF. Patient requires assist w/ all transfers and adls when compared to baseline. Pt does live home alone. Inpatient OT services to follow daily to progress as tolerates w/ functional skills. Normal [facility] Magnesiumon 09-14-2023 Magnesium [Mass/Vol] 1.8 mg/dL Normal 1.3-2.[address] [facility] Comment on above: Performed By: #### 2 257538, 3975946, 4048398, 70602480 ####[facility] [address] [place] [address] Message from Medicareon 08-22 Message from Medicare [id number]# 1.00TIFF Normal [facility] Monitor Recordon 09-14-2023 Monitor Record [id number]# 1.00TIFF Normal [facility] Monitor Record [id number]# 1.00TIFF Normal [facility] Progress Note-Physicianon Progress Note-Physician Normal [facility] Comment on above: Result Comment: Elec tronically Signed By: Sasha Stevens NP\.br\Date and Time Signed: 09/14/23 15:54 EST\.br\Electronically Co-Signed By: Flakita Morgan MD\.br\Date and Time Co-Signed: 09/14/23 20:02 EST Progress Note-Physician Normal [facility] Comment on above: Result Comment: Elec tronically Signed By: Shaquille Calvert Jr., PA-C\.br\Date and Time Signed: 09/14/23 19:56 EST Progress Note-Physician Normal [facility] Comment on above: Result Comment: Elec tronically Signed By: Rowdy LYMAN, Unruly Laurent\.br\Date and Time Signed: 09/14/23 19:53 EST Progress Note-Physician Normal [facility] Comment on above: Result Comment: Elec tronically Signed By: Kayla Garcia MD\.br\Date and Time Signed: 09/14/23 12:47 EST eGFRon 09-14-2023 eGFR 39 mL/min/1.73 m2 Low >=59 [facility] Comment on above: Order Comment: Order added by Discern Expert. Performed By: #### 2 821140, [id number] ####[facility] [address] [place] [address] eGFR 41 mL/min/1.73 m2 Low >=59 [facility] Comment on above: Order Comment: Order added by Discern Expert. Performed By: #### 1 0703082, 7331410 ####[facility] [address] [place] [address] eGFR 39 mL/min/1.73 m2 Low >=59 [facility] Comment on above: Order Comment: Order added by Discern Expert. Performed By: #### 2 845598, 5731395, 1327778, 08723058 ####[facility] [address] [place] [address] eGFR 39 mL/min/1.73 m2 Low >=59 [facility] Comment on above: Order Comment: Order added by Discern Expert. Performed By: #### 1 9013548, 7166573 ####[facility] [address] [place] [place] [address] BMPon 09-13-2023 Anion gap [Moles/Vol] 9 mmol/L Normal 6-16 [facility] Comment on above: Performed By: #### 2 827980, 95552597 ####[facility] [address] [facility] [address] BUN/Creat Ratio 26 No Units High 10-20 [facility] Comment on above: Performed By: #### 2 893854, 43476737 ####[facility] [address] [place] [address] Calcium [Mass/Vol] 8.5 mg/dL Low 8.9-11.1 [facility] Comment on above: Performed By: #### 2 547896, 25483902 ####[facility] [address] [place] [address] Chloride [Moles/Vol] 96 mmol/L Low 101-[address] [facility] Comment on above: Performed By: #### 2 615640, 93104499 ####[facility] [address] [place] [address] CO2 [Moles/Vol] 34 mmol/L High 21-31 [facility] Comment on above: Performed By: #### 2 324430, 93322126 ####[facility] [address] [place] [place] [address] Creatinine [Mass/Vol] 2.0 mg/dL High 0.5-1.3 [facility] Comment on above: Performed By: #### 2 840695, 42632974 ####[facility] [address] [place] [address] Glucose [Mass/Vol] 340 mg/dL High 55-199 [facility] Comment on above: Performed By: #### 2 217173, 02421754 ####[facility] [address] [place] [address] Potassium [Moles/Vol] 5.0 mmol/L Normal 3.5-5.3 [facility] Comment on above: Performed By: #### 2 019581, 41936488 ####[facility] [address] [place] [address] Sodium [Moles/Vol] 134 mmol/L Low 135-145 [facility] Comment on above: Performed By: #### 2 848241, 49027051 ####[facility] [address] [place] [address] Urea nitrogen [Mass/Vol] 51 mg/dL High 5-21 [facility] Comment on above: Performed By: #### 2 976328, 31931352 ####[facility] [address] [place] [address] Anion gap [Moles/Vol] 10 mmol/L Normal 6-16 [facility] Comment on above: Performed By: #### 1 8328360, 1859583 ####[facility] [address] [place] [address] BUN/Creat Ratio 26 No Units High 10-20 [facility] Comment on above: Performed By: #### 1 1565944, 5633827 ####[facility] [address] [place] [address] Calcium [Mass/Vol] 8.6 mg/dL Low 8.9-11.1 [facility] Comment on above: Performed By: #### 1 9634031, 3210221 ####[facility] [address] [place] [address] Chloride [Moles/Vol] 100 mmol/L Low 101-[address] [facility] Comment on above: Performed By: #### 1 9672543, 7096442 ####[facility] [address] [place] [address] CO2 [Moles/Vol] 33 mmol/L High 21-31 [facility] Comment on above: Performed By: #### 1 8881807, 0886307 ####[facility] [address] [facility] [place] [address] Creatinine [Mass/Vol] 2.0 mg/dL High 0.5-1.3 [facility] Comment on above: Performed By: #### 1 4129034, 0523867 ####[facility] [address] [facility] [place] [address] Glucose [Mass/Vol] 239 mg/dL High 55-199 [facility] Comment on above: Performed By: #### 1 4151221, 6583358 ####[facility] [address] [place] [address] Potassium [Moles/Vol] 5.0 mmol/L Normal 3.5-5.3 [facility] Comment on above: Performed By: #### 1 1020445, 5328276 ####[facility] [address] [place] [address] Sodium [Moles/Vol] 138 mmol/L Normal 135-145 [facility] Comment on above: Performed By: #### 1 0951869, 4215830 ####[facility] [address] [facility] [place] [address] Urea nitrogen [Mass/Vol] 51 mg/dL High 5-21 [facility] Comment on above: Performed By: #### 1 3446046, 7583619 ####[facility] [address] [facility] [place] [address] Anion gap [Moles/Vol] 10 mmol/L Normal 6-16 [facility] Comment on above: Performed By: #### 1 0143272, 1196956 ####[facility] [address] [facility] [place] [address] BUN/Creat Ratio 26 No Units High 10-20 [facility] Comment on above: Performed By: #### 1 7127375, 4359673 ####[facility] [address] [facility] [place] [address] Calcium [Mass/Vol] 8.7 mg/dL Low 8.9-11.1 [facility] Comment on above: Performed By: #### 1 5694675, 3968557 ####[facility] [address] [place] [address] Chloride [Moles/Vol] 101 mmol/L Normal 101-[address] [facility] Comment on above: Performed By: #### 1 0382651, 4852105 ####[facility] [address] [place] [address] CO2 [Moles/Vol] 33 mmol/L High 21-31 [facility] Comment on above: Performed By: #### 1 8407668, 0478757 ####[facility] [address] [place] [address] Creatinine [Mass/Vol] 2.0 mg/dL High 0.5-1.3 [facility] [facility] [place] Comment on above: Performed By: #### 1 [id number], [id number] ####[facility] [place] [address] [place] [address] Glucose [Mass/Vol] 149 mg/dL Normal 55-199 [facility] [place] Comment on above: Performed By: #### 1 [id number], [id number] ####[facility] [place] [address] [place] [address] Potassium [Moles/Vol] 4.9 mmol/L Normal 3.5-5.3 [facility] [place] Comment on above: Performed By: #### 1 [id number], [id number] ####[facility] [place] [address] [place] [address] Sodium [Moles/Vol] 139 mmol/L Normal 135-145 [facility] [place] Comment on above: Performed By: #### 1 [id number], [id number] ####[facility] [address] [place] [address] Urea nitrogen [Mass/Vol] 51 mg/dL High 5-21 [facility] [place] Comment on above: Performed By: #### 1 [id number], [id number] ####[facility] [address] [place] [address] Anion gap [Moles/Vol] 11 mmol/L Normal 6-16 [facility] [place] Comment on above: Performed By: #### 2 [id number], [id number] ####[facility] [address] [place] [address] BUN/Creat Ratio 26 No Units High 10-20 [facility] Comment on above: Performed By: #### 2 231280, [id number] ####[facility] [address] [place] [address] Calcium [Mass/Vol] 8.6 mg/dL Low 8.9-11.1 [facility] [place] Comment on above: Performed By: #### 2 922953, [id number] ####[facility] [address] [place] [address] Chloride [Moles/Vol] 103 mmol/L Normal 101-[address] [facility] Comment on above: Performed By: #### 2 648178, [id number] ####[facility] [place] [address] [place] [address] CO2 [Moles/Vol] 31 mmol/L Normal 21-31 [facility] Comment on above: Performed By: #### 2 969869, [id number] ####[facility] [address] [place] [address] Creatinine [Mass/Vol] 2.1 mg/dL High 0.5-1.3 [facility] [place] Comment on above: Performed By: #### 2 116884, [id number] ####[facility] [place] [address] [place] [address] Glucose [Mass/Vol] 154 mg/dL Normal 55-199 [facility] [place] Comment on above: Performed By: #### 2 993609, [id number] ####[facility] [place] [address] [place] [address] Potassium [Moles/Vol] 5.2 mmol/L Normal 3.5-5.3 [facility] [place] Comment on above: Performed By: #### 2 545154, [id number] ####[facility] [place] [address] [place] [address] Sodium [Moles/Vol] 140 mmol/L Normal 135-145 [facility] [place] Comment on above: Performed By: #### 2 981659, [id number] ####[facility] [address] [place] [address] Urea nitrogen [Mass/Vol] 54 mg/dL High 5-21 [facility] [place] Comment on above: Performed By: #### 2 184883, [id number] ####[facility] [address] [place] [address] Anion gap [Moles/Vol] 8 mmol/L Normal 6-16 [facility] [place] Comment on above: Performed By: #### 2 241824, 7789189, [id number] ####[facility] [address] [place] [address] BUN/Creat Ratio 25 No Units High 10-20 [facility] Comment on above: Performed By: #### 2 924082, 5519251, 75260733 ####[facility] [address] [place] [address] Calcium [Mass/Vol] 8.3 mg/dL Low 8.9-11.1 [facility] [place] Comment on above: Performed By: #### 2 308674, 5750705, 20264371 ####[facility] [address] [place] [address] Chloride [Moles/Vol] 104 mmol/L Normal 101-[address] [facility] Comment on above: Performed By: #### 2 623409, 3360921, 17771005 ####[facility] [address] [place] [address] CO2 [Moles/Vol] 33 mmol/L High 21-31 [facility] Comment on above: Performed By: #### 2 085164, 1863691, [id number] ####[facility] [address] [place] [address] Creatinine [Mass/Vol] 2.2 mg/dL High 0.5-1.3 [facility] Comment on above: Performed By: #### 2 719385, 0533383, 60442069 ####[facility] [address] [place] [address] Glucose [Mass/Vol] 170 mg/dL Normal 55-199 [facility] [place] Comment on above: Performed By: #### 2 209057, 8314670, 15515715 ####[facility] [address] [place] [address] Potassium [Moles/Vol] 5.4 mmol/L High 3.5-5.3 [facility] Comment on above: Performed By: #### 2 877477, 8333214, 19980536 ####[facility] [address] [place] [address] Sodium [Moles/Vol] 140 mmol/L Normal 135-145 [facility] Comment on above: Performed By: #### 2 043023, 8584615, [id number] ####[facility] [address] [place] [address] Urea nitrogen [Mass/Vol] 55 mg/dL High 5-21 [facility] Comment on above: Performed By: #### 2 205584, 4954027, 63390211 ####[facility] [address] [place] [address] Anion gap [Moles/Vol] 10 mmol/L Normal 6-16 [facility] Comment on above: Performed By: #### 2 629899, 89550747 ####[facility] [address] [place] [address] BUN/Creat Ratio 24 No Units High 10-20 [facility] Comment on above: Performed By: #### 2 968217, [id number] ####[facility] [address] [place] [address] Calcium [Mass/Vol] 8.6 mg/dL Low 8.9-11.1 [facility] [place] Comment on above: Performed By: #### 2 989082, 79470946 ####[facility] [address] [place] [address] Chloride [Moles/Vol] 105 mmol/L Normal 101-[address] [facility] Comment on above: Performed By: #### 2 780605, [id number] ####[facility] [address] [place] [address] CO2 [Moles/Vol] 30 mmol/L Normal 21-31 [facility] Comment on above: Performed By: #### 2 928271, 26765823 ####[facility] [address] [place] [address] Creatinine [Mass/Vol] 2.3 mg/dL High 0.5-1.3 [facility] Comment on above: Performed By: #### 2 557659, 53201433 ####[facility] [address] [place] [address] Glucose [Mass/Vol] 208 mg/dL High 55-199 [facility] Comment on above: Performed By: #### 2 397497, 40665984 ####[address] [address] Potassium [Moles/Vol] 5.2 mmol/L Normal 3.5-5.3 [facility] Comment on above: Performed By: #### 2 898089, 84864072 ####[address] [address] Sodium [Moles/Vol] 140 mmol/L Normal 135-145 [facility] Comment on above: Performed By: #### 2 258321, 30968474 ####[facility] [address] [place] [address] Urea nitrogen [Mass/Vol] 54 mg/dL High 5-21 [facility] [place] Comment on above: Performed By: #### 2 549317, 54860712 ####[facility] [address] [place] [address] Blood Gas Art, with Lytes, G hugh, [place] 09-13-2023 a/A Ratio Art 37.80 % Normal >=0.80 [facility] Comment on above: Performed By: #### 4 [id number] ####[facility] [address] [facility] [place] [address] AaDO2 Art 150.0 mmHg High 5.0-15.0 [facility] Comment on above: Performed By: #### 4 [id number] ####[facility] [address] [place] [address] ACT. Rate 16 Invalid Interpretation Code [facility] Comment on above: Performed By: #### 4 [id number] ####[address] [place] [address] Allens Test Positive Normal [facility] [place] Comment on above: Performed By: #### 4 [id number] ####[address] [place] [address] Base Excess Arterial 6.3 mmol/L Normal >=2.[address] [facility] Comment on above: Performed By: #### 4 [id number] ####[address] [address] BiPAP 20/8 Invalid Interpretation Code [facility] Comment on above: Performed By: #### 4 [id number] ####[address] [address] cCa2+ Art 4.87 mg/dL Normal 4.40-5.30 [facility] Comment on above: Performed By: #### 4 [id number] ####[facility] [address] [place] [address] cCl- Art 102.0 mmol/L Normal 101.0-111.0 [facility] Comment on above: Performed By: #### 4 [id number] ####[facility] [address] [place] [address] cGlu Art 162 mg/dL High 55-99 [facility] Comment on above: Performed By: #### 4 [id number] ####[facility] [address] [place] [address] cK+ Art 5.3 mmol/L Normal 3.5-5.3 [facility] Comment on above: Performed By: #### 4 [id number] ####[facility] [address] [place] [address] cLac Art .7 mmol/L Normal .5-2.2 [facility] Comment on above: Performed By: #### 4 [id number] ####[facility] [address] [place] [address] marble cutter operator+ Art 143.0 mmol/L Normal 135.0-145.0 [facility] Comment on above: Performed By: #### 4 [id number] ####[facility] [address] [place] [address] Drawn by tsb Invalid Interpretation Code [facility] Comment on above: Performed By: #### 4 [id number] ####[address] [place] [address] FCOHb Art 1.1 % Low 1.5-4.9 [facility] [place] Comment on above: Result Comment: Refe rence rangeNonsmoker <1.5%Smoker <5.0%Heavy Smoker <9.0% Performed By: #### 4 [id number] ####[facility] [address] [place] [address] FIO2 BG 45.0 Invalid Interpretation Code [facility] Comment on above: Performed By: #### 4 [id number] ####[facility] [address] [place] [address] FMetHb Art 0.5 % Normal 0.0-1.9 [facility] Comment on above: Performed By: #### 4 [id number] ####[facility] [address] [place] [address] FO2Hb Art 95.9 % Normal 93.0-100.0 [facility] Comment on above: Performed By: #### 4 [id number] ####[facility] [place] [address] [place] [address] HCO3 (Bld) [Moles/Vol] 30.1 mmol/L High 22.0-26.0 [facility] Comment on above: Performed By: #### 4 [id number] ####[facility] [address] [place] [address] Hemoglobin (Bld) [Mass/Vol] 14.3 g/dL Normal 12.0-17.0 [facility] Comment on above: Performed By: #### 4 [id number] ####[facility] [address] [place] [address] MECH. Rate 14 Invalid Interpretation Code [facility] Comment on above: Performed By: #### 4 [id number] ####[address] [place] [address] MV 13 Invalid Interpretation Code [facility] Comment on above: Performed By: #### 4 [id number] ####[address] [address] Oxygen saturation in Blood 97.5 % Normal 95.0-100.0 [facility] Comment on above: Performed By: #### 4 [id number] ####[address] [address] P CO2 Arterial 66.6 mmHg High 35.0-45.0 [facility] Comment on above: Performed By: #### 4 [id number] ####[address] [place] [address] P O2 Arterial 91.1 mmHg Normal 80.0-100.0 [facility] Comment on above: Performed By: #### 4 [id number] ####[address] [place] [address] pH Arterial 7.326 Low 7.350-7.450 [facility] Comment on above: Performed By: #### 4 [id number] ####[address] [address] Sample Site R Radial Normal [facility] Comment on above: Performed By: #### 4 [id number] ####[address] [address] Sample Type Arterial Draw Normal [facility] Comment on above: Performed By: #### 4 [id number] ####[address] [address] CBC w/ Auto Diffon 4 Basophil Absolute 0.0 E9/L Normal 0.0-0.2 [facility] Comment on above: Performed By: #### 2 981409, 9433958, 83901671 ####[address] [address] Basophils/100 WBC (Bld) 0.4 % Normal 0.0-2.0 [facility] Comment on above: Performed By: #### 2 620158, 5144951, 07618291 ####[address] [address] Eos Absolute 0.0 E9/L Normal 0.0-0.5 [facility] Comment on above: Performed By: #### 2 452196, 5294304, 20902876 ####[address] [address] Eosinophils/100 WBC (Bld) 0.0 % Normal 0.0-8.0 [facility] Comment on above: Performed By: #### 2 774652, 6708727, 75364040 ####[address] [address] Erythrocyte distribution width (RBC) [Ratio] 17.6 % High 10.9-14.2 [facility] Comment on above: Performed By: #### 2 790375, 5834507, 25170669 ####[address] [address] Hematocrit (Bld) [Volume fraction] 43.0 % Normal 37.7-49.0 [facility] Comment on above: Performed By: #### 2 296270, 9387259, 31250327 ####[address] [address] Hemoglobin (Bld) [Mass/Vol] 13.6 g/dL Normal 13.5-17.5 [facility] Comment on above: Performed By: #### 2 114753, 6973172, 45908519 ####[facility] [address] [place] [address] Lymph Absolute 0.7 E9/L Low 1.0-4.0 [facility] Comment on above: Performed By: #### 2 853604, 9999375, 42091405 ####[address] [address] Lymphocytes/100 WBC (Bld) 10.8 % Low 14.0-50.0 [facility] Comment on above: Performed By: #### 2 199755, 4083576, 37383070 ####[address] [address] MCH (RBC) [Entitic mass] 27.7 pg Normal 27.0-34.0 [facility] Comment on above: Performed By: #### 2 405196, 9856968, 06728777 ####[address] [address] MCHC (RBC) [Mass/Vol] 31.6 g/dL Normal 31.4-36.0 [facility] Comment on above: Performed By: #### 2 130444, 2050990, 32508347 ####[address] [address] MCV (RBC) [Entitic vol] 87.5 fL Normal 80.0-100.0 [facility] Comment on above: Performed By: #### 2 509328, 5587384, 58614755 ####[address] [address] [place] Absolute 0.6 E9/L Normal 0.2-1.0 [facility] Comment on above: Performed By: #### 2 878678, 6203274, 64020247 ####[address] [address] Monocytes/100 WBC (Bld) 9.5 % Normal 4.0-14.0 [facility] [place] Comment on above: Performed By: #### 2 559786, 8444792, 25859529 ####[facility] [address] [place] [address] Neutro Absolute 5.0 E9/L Normal 2.0-7.5 [facility] Comment on above: Performed By: #### 2 178207, 3836123, 57824570 ####[facility] [address] [place] [address] Neutro Auto 79.3 % High 36.0-75.0 [facility] Comment on above: Performed By: #### 2 010975, 2810852, 56154611 ####[facility] [address] [place] [address] Platelet 207.0 E9/L Normal 150.0-500.0 [facility] Comment on above: Performed By: #### 2 360740, 6099212, 78303459 ####[facility] [address] [place] [address] Platelet mean volume (Bld) [Entitic vol] 7.2 fL Normal 6.4-10.8 [facility] Comment on above: Performed By: #### 2 065162, 1725775, 58401124 ####[facility] [address] [place] [address] RBC 4.9 E12/L Normal 4.3-5.9 [facility] Comment on above: Performed By: #### 2 401979, 7479389, 89588047 ####[facility] [address] [place] [address] WBC 6.3 E9/L Normal 4.0-11.0 [facility] Comment on above: Performed By: #### 2 178147, 2721757, 32287526 ####[facility] [address] [place] [address] Capillary Glucose POCon 08-22 Glucose [Mass/Vol] 357 mg/dL High 55-99 [facility] Comment on above: Result Comment: Tehlma BAE Performed By: #### 2 [id number] ####[facility] [address] [place] [address] Glucose [Mass/Vol] 235 mg/dL High 55-99 [facility] Comment on above: Result Comment: Thelma BAE Performed By: #### 2 [id number] ####[address] [place] [address] Glucose [Mass/Vol] 153 mg/dL High 55-[address] [place] [address] Comment on above: Result Comment: Thelma BAE Performed By: #### 2 [id number] ####[address] [address] Glucose [Mass/Vol] 137 mg/dL High 55-99 [facility] Comment on above: Result Comment: Thelma BAE Performed By: #### 2 [id number] ####[address] [address] Glucose [Mass/Vol] 157 mg/dL High -[address] [place] [address] Comment on above: Result Comment: Thelma BAE Performed By: #### 2 [id number] ####[address] [address] Glucose [Mass/Vol] 169 mg/dL High -[address] [place] [address] Comment on above: Result Comment: Thelma BAE Performed By: #### 2 [id number] ####[address] [address] Glucose [Mass/Vol] 166 mg/dL High -[address] [place] [address] Comment on above: Result Comment: Thelma BAE Performed By: #### 2 [id number] ####[address] [place] [address] Glucose [Mass/Vol] 170 mg/dL High 55-[address] [place] [address] Comment on above: Result Comment: Thelma BAE Performed By: #### 2 [id number] ####[facility] [address] [place] [address] Glucose [Mass/Vol] 165 mg/dL High 55-99 [facility] Comment on above: Performed By: #### 2 [id number] ####[facility] [address] [place] [address] Glucose [Mass/Vol] 159 mg/dL High 55-99 [facility] Comment on above: Result Comment: Thelma BAE Performed By: #### 2 [id number] ####[facility] [address] [place] [address] Glucose [Mass/Vol] 178 mg/dL High 55-99 [facility] Comment on above: Result Comment: Thelma BAE Performed By: #### 2 [id number] ####[facility] [address] [place] [address] Glucose [Mass/Vol] 143 mg/dL High -99 [facility] Comment on above: Result Comment: Thelma BAE Performed By: #### 2 [id number] ####[facility] [address] [place] [address] Glucose [Mass/Vol] 192 mg/dL High -[address] [place] [address] Comment on above: Result Comment: Thelma BAE Performed By: #### 2 [id number] ####[facility] [address] [place] [address] Glucose [Mass/Vol] 201 mg/dL High 55-99 [facility] Comment on above: Result Comment: Thelma BAE Performed By: #### 2 [id number] ####[facility] [address] [place] [address] Glucose [Mass/Vol] 242 mg/dL High 55-[address] [place] [address] Comment on above: Result Comment: Thelma BAE Performed By: #### 2 [id number] ####[facility] [address] [place] [address] Coding Queryon 09-13-2023 Coding Query Normal [facility] Coding Query Normal [facility] Consultation Noteon 09-13-19 Consultation Note Normal [facility] Comment on above: Result Comment: Elec tronically Signed By: Rowdy LYMAN, Unruly Laurent\.br\Date and Time Signed: 09/13/23 19:06 EST Consultation Note Normal [facility] [place] Comment on above: Result Comment: Elec tronically Signed By: Flakita Morgan MD\.br\Date and Time Signed: 09/13/23 10:18 EST [employer] w/ C ontraston 09-13-2023 Echo [employer]ansthor[employer] w/ Contrast Normal [facility] [id number] 09-13-2023 HbA1c (Bld) [Mass fraction] 11.8 % High <=5.9 [facility] [place] Comment on above: Order Comment: Order placed by EKM rule. BCC_HGBA1CLABORDER_[facility] Performed By: #### 7 [id number] ####[facility] [address] [place] [address] Insurance Correspondence Off iceon 09-13-2023 Insurance Correspondence Office [phone] [id number] #1.00TIFF [facility] Interdisciplinary Note - Yimi e Manageron 09-13-2023 Interdisciplinary Note - Spa Director/Finance Normal [facility] [place] Comment on above: Result Comment: Elec tronically Signed By: Jodee Giang\.br\Date and Time Signed: 09/13/23 14:06 EST Interdisciplinary Note - PTo n 09-13-2023 Interdisciplinary Note - PT Normal [facility] Monitor Recordon 09-13-2023 Monitor Record [id number]# 1.00TIFF Normal [facility] Monitor Record [id number]# 1.00TIFF Normal [facility] Monitor Record [id number]# 1.00TIFF Normal [facility] Monitor Record [id number]# 1.00TIFF Normal [facility] Monitor Record [id number]# 1.00TIFF Normal [facility] Monitor Record [id number] 1 [id number]# 1.00TIFF Normal [facility] Nursing Note - Woundon 09-13 Nursing Note - Wound [id number] 01 [id number]# 2.00TIFF Normal [facility] Progress Note-Physicianon Progress Note-Physician Normal [facility] Comment on above: Result Comment: Elec tronically Signed By: Ida LYMAN, Pippa Mabry\.br\Date and Time Signed: 09/13/23 15:56 EST Progress Note-Physician Normal [facility] [place] Comment on above: Result Comment: Elec tronically Signed By: Jose LYMAN, Kayla\.br\Date and Time Signed: 09/13/23 11:23 EST Respiratory Panel by PCRon 0 09-13-2023 Adenovirus DNA ERIBERTO+non-probe Ql (Nph) Not detected Normal [facility] [place] Comment on above: Result Comment: Test ing was performed using nucleic acid amplification including Influenza A, Influenza A H1, Influenza A H3, Influenza B, RSV A, RSV B, Adenovirus, Human Metapneumovirus, Parainfluenza 1,2,3, and 4, Rhinovirus, Bordetella parapertussis/bronchiseptica, Bordetella holmesii, and Bordetella pertussis. Performed By: #### 1 [id number] ####[facility] [address] [place] [address] B. parapertussis DNA ERIBERTO+probe Ql (Upper resp) Not detected Normal Not Detected [facility] Comment on above: Performed By: #### 1 [id number] ####[facility] [address] [place] [address] B. pertussis DNA ERIBERTO+probe Ql (Upper resp) Not detected Normal Not Detected [facility] [place] Comment on above: Performed By: #### 1 [id number] ####[facility] [address] [facility] [place] [address] FLUAV H1 RNA ERIBERTO+non-probe Ql (Nph) Not detected Normal [facility] Comment on above: Performed By: #### 1 [id number] ####[facility] [address] [facility] [place] [address] FLUAV H3 RNA ERIBERTO+non-probe Ql (Nph) Not detected Normal [facility] [place] Comment on above: Performed By: #### 1 [id number] ####[facility] [address] [facility] [place] [address] FLUAV RNA ERIBERTO+non-probe Ql (Nph) Not detected Normal [facility] Comment on above: Performed By: #### 1 [id number] ####[facility] [address] [facility] [place] [address] FLUBV RNA ERIBERTO+non-probe Ql (Nph) Not detected Normal [facility] [place] Comment on above: Performed By: #### 1 [id number] ####[facility] [place] [address] [facility] [place] [address] Human Metapneumovirus Not detected Normal [facility] Comment on above: Result Comment: This test result should be correlated with clinical presentations and medical history by a healthcare provider to determine its clinical significance. Performed By: #### 1 [id number] ####[facility] [address] [facility] [place] [address] Parainfluenza virus 1 RNA ERIBERTO+non-probe Ql (Nph) Not detected Normal [facility] Comment on above: Performed By: #### 1 [id number] ####[facility] [address] [facility] [place] [address] Parainfluenza virus 2 RNA ERIBERTO+non-probe Ql (Nph) Not detected Normal [facility] Comment on above: Performed By: #### 1 [id number] ####[facility] [address] [facility] [place] [address] Parainfluenza virus 3 RNA ERIBERTO+non-probe Ql (Nph) Not detected Normal [facility] Comment on above: Performed By: #### 1 [id number] ####[facility] [address] [place] [address] Parainfluenza virus 4 RNA ERIBERTO+non-probe Ql (Nph) Not detected Normal [facility] Comment on above: Performed By: #### 1 [id number] ####[facility] [address] [place] [address] Resp Panel Intrl QC Pass Normal [facility] Comment on above: Performed By: #### 1 [id number] ####[address] [place] [address] Rhinovirus+Enterovir us RNA ERIBERTO+non-probe Ql (Nph) Not detected Normal [facility] Comment on above: Performed By: #### 1 [id number] ####[address] [address] RSV RNA ERIBERTO+non-probe Ql (Nph) Not detected Normal [facility] Comment on above: Performed By: #### 1 [id number] ####[address] [address] UA With Cult Reflexon 2023 Bilirubin Ql (U) Negative Normal Negative [facility] Comment on above: Performed By: #### 1 [id number] ####[address] [address] Clarity (U) CLEAR Normal Clear [facility] Comment on above: Performed By: #### 1 [id number] ####[facility] [address] [place] [address] Color (U) YELLOW Normal Yellow [facility] Comment on above: Performed By: #### 1 [id number] ####[address] [address] Epithelial cells.squamous LM.HPF (Urine sed) [#/Area] 0-2 Normal 0-2 [facility] Comment on above: Performed By: #### 1 [id number] ####[facility] [address] [place] [address] Glucose Test strip (U) [Mass/Vol] 3+ Abnormal Negative [facility] Comment on above: Performed By: #### 1 [id number] ####[facility] [address] [place] [address] Hemoglobin Ql (U) 1+ Abnormal Negative [facility] Comment on above: Performed By: #### 1 [id number] ####[facility] [address] [place] [address] Ketones (U) [Mass/Vol] Negative Normal Negative [facility] Comment on above: Performed By: #### 1 [id number] ####[facility] [address] [place] [address] Soudan.plasma/Lithi um.RBC (Bld) [Mass ratio] 0-3 Normal 0-3 [facility] Comment on above: Performed By: #### 1 [id number] ####[address] [address] Nitrite Ql (U) Negative Normal Negative [facility] Comment on above: Performed By: #### 1 [id number] ####[address] [address] pH (U) 5.5 [pH] Invalid Interpretation Code 5.0-9.0 [facility] Comment on above: Performed By: #### 1 [id number] ####[facility] [address] [place] [address] Protein (U) [Mass/Vol] TRACE Abnormal Negative [facility] Comment on above: Performed By: #### 1 [id number] ####[address] [address] Specific gravity (U) [Rel density] 1.015 Invalid Interpretation Code 1.005-1.030 [facility] Comment on above: Performed By: #### 1 [id number] ####[address] [address] Type of Urine collection method Clean Catch Normal [facility] Comment on above: Performed By: #### 1 [id number] ####[address] [place] [address] Urobilinogen Qn (U) 0.2 {Itz'U}/dL Normal 0.0-1.0 [facility] Comment on above: Performed By: #### 1 [id number] ####[facility] [address] [place] [address] WBC Auto Ql (U) Negative Normal Negative [facility] Comment on above: Performed By: #### 1 [id number] ####[facility] [address] [place] [address] WBC LM.HPF (Urine sed) [#/Area] 0-5 Normal 0-5 [facility] Comment on above: Performed By: #### 1 [id number] ####[address] [address] US LE Venous Duplex Bilatera aria 09-13-2023 US LE Venous Duplex Bilateral Normal [facility] US Renalon 09-13-2023 US Renal Normal [facility] XR Chest Single Viewon 09-13 XR Chest Single View Normal [facility] eGFRon 09-13-2023 eGFR 36 mL/min/1.73 m2 Low >=59 [facility] Comment on above: Order Comment: Order added by Discern Expert. Performed By: #### 2 [id number], [id number] ####[address] [place] [address] eGFR 36 mL/min/1.73 m2 Low >=59 [facility] Comment on above: Order Comment: Order added by Discern Expert. Performed By: #### 1 [id number], [id number] ####[facility] [address] [place] [address] eGFR 36 mL/min/1.73 m2 Low >=59 [facility] Comment on above: Order Comment: Order added by Discern Expert. Performed By: #### 1 [id number], [id number] ####[facility] [address] [place] [address] eGFR 34 mL/min/1.73 m2 Low >=59 [facility] Comment on above: Order Comment: Order added by Discern Expert. Performed By: #### 2 [id number], [id number] ####[facility] [address] [place] [address] eGFR 32 mL/min/1.73 m2 Low >=59 [facility] Comment on above: Order Comment: Order added by Discern Expert. Performed By: #### 2 572920, [id number], [id number] ####[facility] [address] [place] [address] eGFR 31 mL/min/1.73 m2 Low >=59 [facility] Comment on above: Order Comment: Order added by Discern Expert. Performed By: #### 2 698562, [id number] ####[facility] [address] [place] [address] BMPon 09-12-2023 Anion gap [Moles/Vol] 12 mmol/L Normal 6-16 [facility] Comment on above: Performed By: #### 1 [id number], [id number] ####[facility] [address] [facility] [place] [address] BUN/Creat Ratio 23 No Units High 10-20 [facility] Comment on above: Performed By: #### 1 [id number], [id number] ####[facility] [address] [place] [address] Calcium [Mass/Vol] 8.4 mg/dL Low 8.9-11.1 [facility] Comment on above: Performed By: #### 1 [id number], [id number] ####[facility] [address] [place] [address] Chloride [Moles/Vol] 102 mmol/L Normal 101-[address] [facility] Comment on above: Performed By: #### 1 [id number], [id number] ####[facility] [address] [place] [address] CO2 [Moles/Vol] 30 mmol/L Normal 21-31 [facility] Comment on above: Performed By: #### 1 7856579, [id number] ####[facility] [address] [place] [address] Creatinine [Mass/Vol] 2.5 mg/dL High 0.5-1.3 [facility] Comment on above: Performed By: #### 1 [id number], [id number] ####[facility] [address] [place] [address] Glucose [Mass/Vol] 463 mg/dL Abnormal 55-199 [facility] Comment on above: Result Comment: Crit ical Result Verified by Previous ResultCritical Result S_[id number] Called to and read back by: MARLEN SHEETS at: 09/12/2023 22:01:54 by:PRADEEP KERR Performed By: #### 1 [id number], [id number] ####[facility] [address] [place] [address] Potassium [Moles/Vol] 5.6 mmol/L High 3.5-5.3 [facility] Comment on above: Performed By: #### 1 [id number], [id number] ####[facility] [address] [place] [address] Sodium [Moles/Vol] 138 mmol/L Normal 135-145 [facility] Comment on above: Performed By: #### 1 [id number], [id number] ####[facility] [address] [place] [address] Urea nitrogen [Mass/Vol] 57 mg/dL High 5-21 [facility] Comment on above: Performed By: #### 1 5074194, 2240981 ####[facility] [address] [place] [address] Anion gap [Moles/Vol] 12 mmol/L Normal 6-16 [facility] Comment on above: Performed By: #### 2 640942, [id number], [id number] ####[facility] [address] [place] [address] BUN/Creat Ratio 22 No Units High 10-20 [facility] Comment on above: Performed By: #### 2 943563, [id number], 4268930 ####[facility] [address] [place] [address] Calcium [Mass/Vol] 8.4 mg/dL Low 8.9-11.1 [facility] Comment on above: Performed By: #### 2 769841, [id number], 5687358 ####[facility] [address] [place] [address] Chloride [Moles/Vol] 100 mmol/L Low 101-[address] [facility] Comment on above: Performed By: #### 2 627382, [id number], 5847716 ####[facility] [address] [place] [address] CO2 [Moles/Vol] 28 mmol/L Normal 21-31 [facility] Comment on above: Performed By: #### 2 643303, [id number], 4859912 ####[facility] [address] [place] [address] Creatinine [Mass/Vol] 2.6 mg/dL High 0.5-1.3 [facility] Comment on above: Performed By: #### 2 725508, [id number], 7018424 ####[facility] [address] [place] [address] Glucose [Mass/Vol] 575 mg/dL Abnormal 55-199 [facility] Comment on above: Result Comment: Crit ical Result S_[id number] Called to and read back by: MARLEN SHEETS at: 09/12/2023 18:59:19 by:PRADEEP Barksdale Result Verified by Previous Result Performed By: #### 2 178766, [id number], 3215802 ####[facility] [address] [place] [address] Potassium [Moles/Vol] 6.5 mmol/L Abnormal 3.5-5.3 [facility] Comment on above: Result Comment: Crit ical Result S_K:6.5 Called to and read back by: MARLEN SHEETS at: 09/12/2023 18:59:19 by:PRADEEP Barksdale Result Verified by Previous Result Performed By: #### 2 755666, [id number], [id number] ####[facility] [address] [place] [address] Sodium [Moles/Vol] 133 mmol/L Low 135-145 [facility] Comment on above: Performed By: #### 2 452769, 74217251, 3629812 ####[facility] [address] [place] [address] Urea nitrogen [Mass/Vol] 57 mg/dL High 5-21 [facility] Comment on above: Performed By: #### 2 139653, [id number], 8828128 ####[address] [place] [address] BNPon 09-12-2023 Natriuretic peptide B (Bld) [Mass/Vol] 245 pg/mL High 5-80 [facility] Comment on above: Performed By: #### 1 [id number], [id number], 1458365, [id number], 76957172, 8106783, 7724714, 01738480, 1128148, 3598434 ####[facility] [address] [place] [address] BOHBon 09-12-2023 Beta HB Qnt 0.17 mmol/L Normal 0.02-0.27 [facility] Comment on above: Performed By: #### 1 0603755, [id number], 0246805, [id number], 05019376, 2646834, 3177326, 33579327, 5099480, 7964300 ####[facility] [address] [place] [address] Blood Gas Art, with Lytes, G hugh, [place] 09-12-2023 a/A Ratio Art 26.80 % Normal >=0.80 [facility] Comment on above: Performed By: #### 4 [id number] ####[facility] [address] [place] [address] AaDO2 Art 281.8 mmHg High 5.0-15.0 [facility] Comment on above: Performed By: #### 4 [id number] ####[facility] [address] [facility] [place] [address] Allens Test Positive Normal [facility] Comment on above: Performed By: #### 4 [id number] ####[facility] [address] [facility] [place] [address] Base Excess Arterial 2.9 mmol/L Normal >=2.[address] [facility] Comment on above: Performed By: #### 4 [id number] ####[facility] [address] [facility] [place] [address] BiPAP 09/04 Invalid Interpretation Code [facility] Comment on above: Performed By: #### 4 [id number] ####[facility] [address] [facility] [place] [address] cCa2+ Art 4.64 mg/dL Normal 4.40-5.30 [facility] Comment on above: Performed By: #### 4 [id number] ####[facility] [address] [facility] [place] [address] cGlu Art 531 mg/dL Abnormal 55-99 [facility] Comment on above: Result Comment: Resu lts Called To DR GARCIA By DIANA MCKEON And Read Back For Confirmation On 09/12/2023 18:44:48 EST. Performed By: #### 4 [id number] ####[facility] [address] [facility] [place] [address] cK+ Art 5.9 mmol/L High 3.5-5.3 [facility] Comment on above: Performed By: #### 4 [id number] ####[facility] [address] [facility] [place] [address] cLac Art .6 mmol/L Normal .5-2.2 [facility] Comment on above: Performed By: #### 4 [id number] ####[facility] [address] [facility] [place] [address] marble cutter operator+ Art 138.0 mmol/L Normal 135.0-145.0 [facility] Comment on above: Performed By: #### 4 [id number] ####[facility] [address] [place] [address] Drawn by [employer] Invalid Interpretation Code [facility] Comment on above: Performed By: #### 4 [id number] ####[address] [place] [address] FCOHb Art 1.4 % Low 1.5-4.9 [facility] Comment on above: Result Comment: Refe rence rangeNonsmoker <1.5%Smoker <5.0%Heavy Smoker <9.0% Performed By: #### 4 [id number] ####[address] [address] FIO2 BG 65.0 Invalid Interpretation Code [facility] Comment on above: Performed By: #### 4 [id number] ####[address] [address] [address] FMetHb Art 0.6 % Normal 0.0-1.9 [facility] [place] Comment on above: Performed By: #### 4 [id number] ####[address] [address] FO2Hb Art 95.9 % Normal 93.0-100.0 [facility] [place] Comment on above: Performed By: #### 4 [id number] ####[address] [address] HCO3 (Bld) [Moles/Vol] 27.0 mmol/L High 22.0-26.0 [facility] [place] Comment on above: Performed By: #### 4 [id number] ####[address] [place] [address] Hemoglobin (Bld) [Mass/Vol] 14.9 g/dL Normal 12.0-17.0 [facility] [place] Comment on above: Performed By: #### 4 [id number] ####[address] [place] [address] Oxygen saturation in Blood 97.9 % Normal 95.0-100.0 [facility] [place] Comment on above: Performed By: #### 4 [id number] ####[address] [address] P CO2 Arterial 65.5 mmHg High 35.0-45.0 [facility] Comment on above: Performed By: #### 4 [id number] ####[address] [address] P O2 Arterial 103.0 mmHg High 80.0-100.0 [facility] Comment on above: Performed By: #### 4 [id number] ####[address] [address] pH Arterial 7.292 Low 7.350-7.450 [facility] [place] Comment on above: Performed By: #### 4 [id number] ####[address] [address] Sample Site L Radial Normal [facility] [place] Comment on above: Performed By: #### 4 [id number] ####[address] [address] Sample Type Arterial Draw Normal [facility] Comment on above: Performed By: #### 4 [id number] ####[address] [address] a/A Ratio Art 29.90 % Normal >=0.80 [facility] Comment on above: Performed By: #### 4 [id number] ####[address] [address] AaDO2 Art 192.2 mmHg High 5.0-15.0 [facility] Comment on above: Performed By: #### 4 [id number] ####[address] [address] Allens Test Positive Normal [facility] [place] Comment on above: Performed By: #### 4 [id number] ####[address] [address] Base Excess Arterial -0.1 mmol/L Low >=2.8 [facility] Comment on above: Performed By: #### 4 [id number] ####[facility] [address] [place] [address] BiPAP 05/04 Invalid Interpretation Code [facility] Comment on above: Performed By: #### 4 [id number] ####[facility] [address] [place] [address] cCa2+ Art 4.76 mg/dL Normal 4.40-5.30 [facility] Comment on above: Performed By: #### 4 [id number] ####[address] [address] cCl- Art 100.0 mmol/L Low 101.0-111.0 [facility] Comment on above: Performed By: #### 4 [id number] ####[address] [address] cGlu Art 555 mg/dL Abnormal 55-99 [facility] [place] Comment on above: Result Comment: Resu lts Called To [place] [facility] By WILLEM WILKES _ And Read Back For Confirmation On _.09/12/2023 16:45:25 EST Performed By: #### 4 [id number] ####[facility] [address] [place] [address] cK+ Art 6.3 mmol/L Abnormal 3.5-5.3 [facility] Comment on above: Result Comment: Resu lts Called To [place] [facility] By WILLEM WILKES _ And Read Back For Confirmation On _.09/12/2023 16:45:25 EST Performed By: #### 4 [id number] ####[facility] [address] [place] [address] cLac Art .7 mmol/L Normal .5-2.2 [facility] Comment on above: Performed By: #### 4 [id number] ####[address] [place] [address] marble cutter operator+ Art 135.0 mmol/L Normal 135.0-145.0 [facility] Comment on above: Performed By: #### 4 [id number] ####[facility] [address] [place] [address] Drawn by WILLEM WILKES Invalid Interpretation Code [facility] Comment on above: Performed By: #### 4 [id number] ####[address] [place] [address] FCOHb Art 2.1 % Normal 1.5-4.9 [facility] Comment on above: Result Comment: Refe rence rangeNonsmoker <1.5%Smoker <5.0%Heavy Smoker <9.0% Performed By: #### 4 [id number] ####[address] [address] FIO2 BG 50 Invalid Interpretation Code [facility] Comment on above: Performed By: #### 4 [id number] ####[address] [address] FMetHb Art 0.1 % Normal 0.0-1.9 [facility] [place] Comment on above: Performed By: #### 4 [id number] ####[address] [address] FO2Hb Art 93.3 % Normal 93.0-100.0 [facility] Comment on above: Performed By: #### 4 [id number] ####[address] [place] [address] HCO3 (Bld) [Moles/Vol] 24.3 mmol/L Normal 22.0-26.0 [facility] Comment on above: Performed By: #### 4 [id number] ####[address] [place] [address] Hemoglobin (Bld) [Mass/Vol] 14.8 g/dL Normal 12.0-17.0 [facility] Comment on above: Performed By: #### 4 [id number] ####[address] [place] [address] Oxygen saturation in Blood 95.4 % Normal 95.0-100.0 [facility] Comment on above: Performed By: #### 4 [id number] ####[facility] [address] [place] [address] P CO2 Arterial 69.6 mmHg High 35.0-45.0 [facility] Comment on above: Performed By: #### 4 [id number] ####[facility] [address] [place] [address] P O2 Arterial 81.9 mmHg Normal 80.0-100.0 [facility] Comment on above: Performed By: #### 4 [id number] ####[address] [place] [address] pH Arterial 7.235 Abnormal 7.350-7.450 [facility] Comment on above: Result Comment: Resu lts Called To [place] [facility] By WILLEM WILKES _ And Read Back For Confirmation On _.09/12/2023 16:45:25 EST Performed By: #### 4 [id number] ####[address] [place] [address] Sample Site L Radial Normal [facility] [place] Comment on above: Performed By: #### 4 [id number] ####[facility] [address] [place] [address] Sample Type Arterial Draw Normal [facility] Comment on above: Performed By: #### 4 [id number] ####[facility] [address] [place] [address] a/A Ratio Art 17.40 % Normal >=0.80 [facility] Comment on above: Performed By: #### 4 [id number] ####[facility] [address] [place] [address] AaDO2 Art 406.5 mmHg High 5.0-15.0 [facility] Comment on above: Performed By: #### 4 [id number] ####[address] [place] [address] Allens Test Positive Normal [facility] Comment on above: Performed By: #### 4 [id number] ####[facility] [address] [place] [address] Base Excess Arterial -0.1 mmol/L Low >=2.8 [facility] Comment on above: Performed By: #### 4 [id number] ####[facility] [address] [place] [address] cCa2+ Art 4.75 mg/dL Normal 4.40-5.30 [facility] Comment on above: Performed By: #### 4 [id number] ####[facility] [address] [place] [address] cCl- Art 98.0 mmol/L Low 101.0-111.0 [facility] Comment on above: Performed By: #### 4 [id number] ####[address] [place] [address] cGlu Art 579 mg/dL Abnormal 55-99 [facility] Comment on above: Result Comment: Resu lts Called To [facility] By korina hebert And Read Back For Confirmation On 09/12/2023 14:09:29 EST. Performed By: #### 4 [id number] ####[facility] [address] [place] [address] cK+ Art 6.0 mmol/L High 3.5-5.3 [facility] Comment on above: Performed By: #### 4 [id number] ####[facility] [address] [place] [address] cLac Art .9 mmol/L Normal .5-2.2 [facility] Comment on above: Performed By: #### 4 [id number] ####[address] [place] [address] marble cutter operator+ Art 134.0 mmol/L Low 135.0-145.0 [facility] Comment on above: Performed By: #### 4 [id number] ####[facility] [address] [place] [address] Device Non Rebreather Mask Normal [facility] Comment on above: Performed By: #### 4 [id number] ####[facility] [address] [place] [address] Drawn by korina clement Invalid Interpretation Code [facility] Comment on above: Performed By: #### 4 [id number] ####[address] [place] [address] FCOHb Art 2.2 % Normal 1.5-4.9 [facility] Comment on above: Result Comment: Refe rence rangeNonsmoker <1.5%Smoker <5.0%Heavy Smoker <9.0% Performed By: #### 4 [id number] ####[address] [address] FIO2 BG 80 Invalid Interpretation Code [facility] Comment on above: Performed By: #### 4 [id number] ####[address] [address] FO2Hb Art 94.1 % Normal 93.0-100.0 [facility] Comment on above: Performed By: #### 4 [id number] ####[address] [address] HCO3 (Bld) [Moles/Vol] 24.3 mmol/L Normal 22.0-26.0 [facility] Comment on above: Performed By: #### 4 [id number] ####[address] [place] [address] Hemoglobin (Bld) [Mass/Vol] 14.7 g/dL Normal 12.0-17.0 [facility] Comment on above: Performed By: #### 4 [id number] ####[address] [place] [address] Oxygen saturation in Blood 96.2 % Normal 95.0-100.0 [facility] Comment on above: Performed By: #### 4 [id number] ####[address] [address] P CO2 Arterial 65.1 mmHg High 35.0-45.0 [facility] Comment on above: Performed By: #### 4 [id number] ####[address] [place] [address] P O2 Arterial 85.6 mmHg Normal 80.0-100.0 [facility] Comment on above: Performed By: #### 4 [id number] ####[address] [place] [address] pH Arterial 7.254 Low 7.350-7.450 [facility] Comment on above: Performed By: #### 4 [id number] ####[id number] Sample Site L Radial Normal [facility] Comment on above: Performed By: #### 4 [id number] ####[place] [address] Sample Type Arterial Draw Normal [facility] Comment on above: Performed By: #### 4 [id number] ####[address] CBC w/ Auto Diffon 4 Basophil Absolute 0.1 E9/L Normal 0.0-0.2 [facility] Comment on above: Performed By: #### 1 3382701, 665843779, 3234892, 0858994582, 07252402, 9152132, 3431023, 29279000, 5762311, 9531913 ####[address] [place] [address] Basophils/100 WBC (Bld) 1.0 % Normal 0.0-2.0 [facility] Comment on above: Performed By: #### 1 3837397, 704274528, 1989414, 3871489614, 73620061, 9782027, 0624401, 15192392, 5075620, 1676413 ####[facility] [address] Eos Absolute 0.2 E9/L Normal 0.0-0.5 [facility] Comment on above: Performed By: #### 1 2298017, 135038727, 0803634, 5151748655, 12961222, 2037575, 7031594, 46164877, 2805095, 1055819 ####[facility] [address] [place] [address] Eosinophils/100 WBC (Bld) 2.9 % Normal 0.0-8.0 [facility] Comment on above: Performed By: #### 1 6545676, 197115545, 1722627, 9560502034, 29593367, 4645149, 7135898, 57563812, 6465720, 1038174 ####[facility] [address] [place] [address] Erythrocyte distribution width (RBC) [Ratio] 18.2 % High 10.9-14.2 [facility] Comment on above: Performed By: #### 1 6510004, 876820988, 0988520, 4947364123, 51866086, 2394505, 7312025, 86807683, 7014754, 6893991 ####[facility] [address] [place] [address] Hematocrit (Bld) [Volume fraction] 46.0 % Normal 37.7-49.0 [facility] Comment on above: Performed By: #### 1 4361319, 839286076, 4487226, 9417300148, 44663174, 0704526, 8875963, 72468933, 5832394, 0561145 ####[facility] [address] [place] [address] Hemoglobin (Bld) [Mass/Vol] 14.2 g/dL Normal 13.5-17.5 [facility] Comment on above: Performed By: #### 1 5276178, 926937039, 3755834, 3665042924, 87131563, 2551988, 4184293, 35222906, 9281095, 2405272 ####[facility] [address] [place] [address] Lymph Absolute 1.0 E9/L Normal 1.0-4.0 [facility] Comment on above: Performed By: #### 1 6328790, 135652614, 6610176, 2003277569, 06258998, 7894916, 3259680, 43839850, 3084228, 8654374 ####[facility] [address] [place] [address] Lymphocytes/100 WBC (Bld) 14.0 % Normal 14.0-50.0 [facility] Comment on above: Performed By: #### 1 0596101, 616460144, 9871899, 9210244130, 78223566, 7516750, 2916466, 26660122, 3146679, 5406251 ####[address] [address] MCH (RBC) [Entitic mass] 27.7 pg Normal 27.0-34.0 [facility] Comment on above: Performed By: #### 1 8815429, 451752257, 8229833, 3021348011, 56792537, 1439817, 1085062, 51712723, 7851222, 6057627 ####[facility] [address] [place] [address] MCHC (RBC) [Mass/Vol] 30.8 g/dL Low 31.4-36.0 [facility] Comment on above: Performed By: #### 1 6078685, 010824910, 5189129, 5500384453, 58281809, 2064137, 8591295, 18960070, 9273754, 0354951 ####[address] [place] [address] MCV (RBC) [Entitic vol] 90.0 fL Normal 80.0-100.0 [facility] Comment on above: Performed By: #### 1 0824519, 671246330, 7419874, 9987607343, 09057210, 5404595, 6754642, 46751934, 1020975, 4961885 ####[address] [place] [address] Ellsworth Absolute 0.8 E9/L Normal 0.2-1.0 [facility] Comment on above: Performed By: #### 1 3497271, 830359537, 0741873, 0216226763, 69638448, 6513578, 4159091, 14375798, 7027339, 7039685 ####[address] [place] [address] Monocytes/100 WBC (Bld) 11.3 % Normal 4.0-14.0 [facility] Comment on above: Performed By: #### 1 5051834, 418784261, 0583958, 3246500778, 69120452, 6939322, 6808441, 94752102, 0452954, 8302009 ####[address] [address] Neutro Absolute 4.8 E9/L Normal 2.0-7.5 [facility] Comment on above: Performed By: #### 1 9745811, 183474542, 1278916, 7997748178, 46690380, 3369011, 2467889, 94893031, 4826125, 7238369 ####[address] [address] Neutro Auto 70.8 % Normal 36.0-75.0 [facility] Comment on above: Performed By: #### 1 8930028, 182242292, 9793206, 2273794974, 27576340, 4848311, 4778168, 44370805, 7986481, 1156201 ####[address] [place] [address] Platelet 206.0 E9/L Normal 150.0-500.0 [facility] Comment on above: Performed By: #### 1 2013006, 243313517, 3862436, 7414418095, 39824194, 1161137, 3606398, 34387492, 6212135, 4271863 ####[address] [place] [address] Platelet mean volume (Bld) [Entitic vol] 7.3 fL Normal 6.4-10.8 [facility] Comment on above: Performed By: #### 1 6374034, 582018439, 3261842, 0059303545, 01287191, 0224004, 4790462, 77555793, 8000332, 7253717 ####[address] [place] [address] RBC 5.1 E12/L Normal 4.3-5.9 [facility] Comment on above: Performed By: #### 1 4087204, 644281330, 8571822, 1856582235, 26968596, 9515735, 5497835, 28443017, 4368715, 8837096 ####[address] [address] WBC 6.8 E9/L Normal 4.0-11.0 [facility] Comment on above: Performed By: #### 1 7485646, 286187366, 9061322, 6144877247, 06874938, 2716924, 1523636, 67044020, 5112741, 3876306 ####[address] [address] CMPon 09-12-2023 Albumin [Mass/Vol] 3.3 g/dL Normal 3.3-5.0 [facility] Comment on above: Performed By: #### 1 7565581, 743390853, 6410086, 9300073971, 25329642, 9397041, 4047191, 53838708, 9140033, 9652139 ####[address] [place] [address] Albumin/Globulin [Mass ratio] 1.1 {ratio} Normal 1.1-2.2 [facility] Comment on above: Performed By: #### 1 8842172, 963385500, 3696565, 6515368074, 46548160, 7431353, 6621963, 59505491, 1514018, 6348408 ####[facility] [address] [place] [address] Alk Phos 94 Int._Unit/L Normal 21-98 [facility] Comment on above: Performed By: #### 1 7085751, 192561630, 3814854, 1851917792, 29607149, 8393112, 6265706, 16055507, 8191269, 1718580 ####[facility] [address] [place] [address] ALT 14 Int._Unit/L Normal 6-46 [facility] Comment on above: Performed By: #### 1 2828370, 692089590, 1669254, 9793854590, 45577003, 8066497, 4681897, 90422208, 4358813, 6154670 ####[address] [address] Anion gap [Moles/Vol] 10 mmol/L Normal 6-16 [facility] Comment on above: Performed By: #### 1 3568838, 410946896, 9137232, 6093558194, 56945189, 8015450, 1626040, 57858878, 1740046, 2069348 ####[address] [place] [address] AST 12 Int._Unit/L Normal 5-43 [facility] Comment on above: Performed By: #### 1 7190902, 417545018, 1938904, 1564342139, 74016916, 3736587, 4200969, 20200374, 3066807, 3386507 ####[address] [place] [address] Bili Total 0.6 mg/dL Normal 0.0-1.1 [facility] Comment on above: Performed By: #### 1 4104751, 454677355, 3985087, 1249628348, 12598213, 9818592, 1624817, 64300458, 4460706, 0776046 ####[facility] [address] [place] [address] BUN/Creat Ratio 21 No Units High 10-20 [facility] Comment on above: Performed By: #### 1 5088117, 196595749, 1427829, 8856957599, 88983160, 4619307, 9025715, 38226836, 0358308, 5927020 ####[facility] [address] [place] [address] Calcium [Mass/Vol] 8.3 mg/dL Low 8.9-11.1 [facility] Comment on above: Performed By: #### 1 8675825, 526679664, 2696906, 9167523857, 39040870, 5865622, 7673465, 95299402, 8002723, 8035434 ####[facility] [address] [place] [address] Chloride [Moles/Vol] 97 mmol/L Low 101-[address] [facility] Comment on above: Performed By: #### 1 4103454, 431855889, 7897040, 1723463833, 02209774, 2858109, 8584030, 06917705, 6033403, 9430815 ####[facility] [address] [place] [address] CO2 [Moles/Vol] 29 mmol/L Normal 21-31 [facility] Comment on above: Performed By: #### 1 6372768, 025875258, 8094727, 2911683246, 05802181, 2754499, 6117456, 68019032, 7216578, 3763414 ####[facility] [address] [place] [address] Creatinine [Mass/Vol] 2.8 mg/dL High 0.5-1.3 [facility] Comment on above: Performed By: #### 1 2992702, 173789596, 6086690, 8302479982, 12681840, 0027887, 7483626, 63317951, 1569352, 3935625 ####[facility] [address] [place] [address] Globulin (S) [Mass/Vol] 3.1 g/dL Normal 1.4-4.0 [facility] Comment on above: Performed By: #### 1 1291418, 388255291, 9196227, 1417763717, 46079228, 8170412, 0847053, 54965662, 0579936, 6482967 ####[facility] [address] [place] [address] Glucose [Mass/Vol] 560 mg/dL Abnormal 55-199 [facility] Comment on above: Result Comment: Crit ical Result Verified by Repeat AnalysisCritical Result S_[id number] Called to and read back by: ULICES BACA at: 09/12/2023 14:56:08 by:[email or web address] Performed By: #### 1 6246288, 931055757, 1554483, 0826216794, 33410738, 0239219, 8006931, 77575495, 6491920, 7108681 ####[facility] [address] [place] [address] Potassium [Moles/Vol] 6.3 mmol/L Abnormal 3.5-5.3 [facility] Comment on above: Result Comment: Crit ical Result Verified by Repeat AnalysisCritical Result S_K:6.3 Called to and read back by: ULICES BACA at: 09/12/2023 14:56:08 by:DOMINICK Performed By: #### 1 5512505, 118822138, 8437851, 8454892118, 12769830, 2939581, 8634194, 23468782, 7549078, 4387582 ####[address] [place] [address] Protein [Mass/Vol] 6.4 g/dL Normal 6.0-7.8 [facility] Comment on above: Performed By: #### 1 4021236, 410902724, 1172204, 1975423239, 12424525, 8082004, 4342385, 33078627, 6810092, 3735579 ####[facility] [address] [place] [address] Sodium [Moles/Vol] 130 mmol/L Low 135-145 [facility] Comment on above: Performed By: #### 1 8364843, 444979986, 1457239, 3522620282, 59144284, 0011988, 8215542, 72629090, 4113351, [id number] ####[facility] [address] [place] [address] Urea nitrogen [Mass/Vol] 59 mg/dL High 5-21 [facility] Comment on above: Performed By: #### 1 [id number], [id number], 1004622, [id number], 81763515, 1986821, 3104232, 23653019, 4903370, 2404340 ####[facility] [address] [place] [address] Capillary Glucose POCon 08-22 Glucose [Mass/Vol] 298 mg/dL High 55-99 [facility] Comment on above: Performed By: #### 2 [id number] ####[facility] [address] [place] [address] Glucose [Mass/Vol] 336 mg/dL High 55-99 [facility] Comment on above: Result Comment: Thelma BAE Performed By: #### 2 [id number] ####[facility] [address] [place] [address] Glucose [Mass/Vol] 431 mg/dL High 55-99 [facility] Comment on above: Result Comment: Thelma BAE Performed By: #### 2 [id number] ####[facility] [address] [place] [address] Glucose [Mass/Vol] 468 mg/dL Abnormal 55-99 [facility] Comment on above: Performed By: #### 2 [id number] ####[facility] [address] [place] [address] Glucose Cap >500 Abnormal 55-99 [facility] Comment on above: Result Comment: Repe at Test Performed By: #### 2 [id number] ####[facility] [address] [place] [address] Glucose Cap >500 Abnormal 55-99 [facility] Comment on above: Result Comment: Pricila elbert Meter Performed By: #### 2 [id number] ####[facility] [address] [place] [address] Consent for Treatmenton 08-22 Consent for Treatment [id number]# 1.00TIFF Normal [facility] Consultation Noteon 09-12-19 Consultation Note Normal [facility] Comment on above: Result Comment: Elec tronically Signed By: Shaquille Calvert Jr., PA-C\.br\Date and Time Signed: 09/12/23 17:54 EST ED Clinical Summaryon 2023 ED Clinical Summary Normal [facility] ED Note-Physicianon 09-12-19 ED Note-Physician Normal [facility] Comment on above: Result Comment: Elec tronically Signed By: Nicole Myers DO\.br\Date and Time Signed: 09/12/23 16:07 EST ED Patient Education Noteon 09-12-2023 ED Patient Education Note Normal [facility] ED Patient Summaryon 024 ED Patient Summary Normal [facility] Glucoseon 09-12-2023 Glucose [Mass/Vol] 533 mg/dL Abnormal 55-199 [facility] Comment on above: Result Comment: Crit ical Result Verified by Previous ResultCritical Result [id number] Called to and read back by: YI FERRER at: 09/12/2023 19:24:47 by:PRADEEP KERR Performed By: #### 2 [id number] ####[facility] [address] [place] [address] Influenza A&B Agon 4 Influenzae A Ag Negative Normal Negative [facility] Comment on above: Performed By: #### 2 [id number], [id number] ####[facility] [address] [place] [address] Influenzae B Ag Negative Normal Negative [facility] Comment on above: Result Comment: Test sensitivity and specificity vary for age group, specimen type, antigen types, and prevalence of disease. Test results must be evaluated in conjunction with other clinical data available to the physician. Individuals who received nasally administered Influenza A vaccine may have positive test results up to 3 days after vaccination. Performed By: #### 2 [id number], [id number] ####[facility] [address] [place] [address] Lactic Acidon 09-12-2023 Lactic Acid Lvl 1.2 mmol/L Normal 0.5-2.2 [facility] Comment on above: Performed By: #### 2 134475 ####[address] [address] Lactic Acid Lvl 1.2 mmol/L Normal 0.5-2.2 [facility] Comment on above: Performed By: #### 1 [id number], [id number], 2260507, [id number], 99889417, 0176882, 2379812, 03724451, 7803231, 7614466 ####[facility] [address] [place] [address] Lipase Levelon 09-12-2023 Lipase Lvl 14 unit/L Normal 13-58 [facility] Comment on above: Performed By: #### 1 [id number], 411504144, 1256707, [id number], 31004195, 1998086, 5246607, 75626116, 1910743, 1915613 ####[address] [place] [address] Monitor Recordon 09-12-2023 Monitor Record [id number]# 1.00TIFF Normal [facility] Monitor Record [id number]# 1.00TIFF Normal [facility] Monitor Record [id number]# 1.00TIFF Normal [facility] Monitor Record [id number]# 1.00TIFF Normal [facility] Monitor Record [id number]# 1.00TIFF Normal [facility] PT & PTTon 09-12-2023 aPTT Coag (PPP) [Time] 32.5 second(s) Normal 25.1-36.5 [facility] Comment on above: Result Comment: Para meter [...] the same coagulation reagent and instrumentation as [facility]. Currently there are no coagulation studies available worldwide for children to 14 days, and no normal ranges. Heparin therapeutic range (represented by Anti-Factor Xa activity of 0.2 - 0.4 U/mL) corresponds to PTT of 56.6 - 109.0 sec. Performed By: #### 1 [id number], 776185944, 9422912, 9424484252, 17507489, 0790667, 1392485, 26413608, 6899790, 1844224 ####[facility] [address] [place] [address] INR Coag (PPP) [Relative time] 1.1 {INR} Invalid Interpretation Code [facility] Comment on above: Result Comment: INR results are specifically intended to assess patients stabilized on long-term Anticoagulation therapy suggested INR?s ?Less Intensive Anticoagulation? 2.0 ? 3.0Conventional Range 3.0 ? 4.5 Performed By: #### 1 7937119, 372238233, 7675307, 1685301467, 84831805, 1620293, 8828271, 73589749, 3526032, 5142557 ####[facility] [address] [place] [address] PT Coag (PPP) [Time] 12.0 second(s) Normal 9.4-12.5 [facility] Comment on above: Result Comment: 15 d [...] the same coagulation reagent and instrumentation as [facility]. Currently there are no coagulation studies available worldwide for children to 14 days, and no normal ranges. Performed By: #### 1 3919699, 213988875, 5941999, 2642583077, 00870971, 7100267, 6857655, 03686478, 1152950, 2700266 ####[facility] [address] [place] [address] Pre-Arrival Noteon Pre-Arrival Note Normal [facility] Procalcitoninon 09-12-2023 Procalcitonin .10 ng/mL Normal .00-.50 [facility] Comment on above: Result Comment: <0.5 [...] to 24 hours. Performed By: #### 1 9912965, 658941943, 9399938, 4299905764, 03764856, 6696407, 6632846, 91126787, 8969995, 9161914 ####[facility] [address] [place] [address] Rapid COVID Antigen ([facility])on 09-12-2023 Rapid COV Int NEG Ctl Pass Normal [facility] Comment on above: Performed By: #### 2 [id number], 20627198 ####[facility] [address] [place] [address] Rapid COV Int POS Ctl Pass Normal [facility] Comment on above: Performed By: #### 2 [id number], [id number] ####[facility] [address] [place] [address] SARS-CoV+SARS-CoV-2 (COVID-19) Ag IA.rapid Ql (Resp) Not detected Normal Not Detected [facility] Comment on above: Result Comment: The [employer] Veritor? System for Rapid Detection of SARS-CoV-2 is [...] in patient care settings operating under a [place] Certificate of Waiver, Certificate of Compliance, or Certificate of Accreditation.This test has been authorized only for the detection of proteins from SARS-CoV-2, not for any other viruses or pathogens; and, in the [facility], this test is only authorized for the duration of the declaration that circumstances exist justifying the authorization of emergency use of in vitro diagnostics for detection and/or diagnosis of the virus that causes COVID-19 under Section 564(b)(1) of the Act, 21 U.S.C. ? 360bbb-3(b)(1), unless the authorization is terminated or revoked sooner. Performed By: #### 2 [id number], [id number] ####[address] [place] [address] Triglycerideson 09-12-2023 Triglyceride [Mass/Vol] 131 mg/dL Normal <=149 [facility] Comment on above: Performed By: #### 2 488383, 80566233, 2058297 ####[address] [place] [address] Troponinon 09-12-2023 Troponin 59.30 pg/mL Abnormal 15.90-38.40 [facility] Comment on above: Result Comment: Crit ical Result Verified by Repeat AnalysisCritical Result I_[id number] Called to and read back by: ULICES BACA at: 09/12/2023 16:43:58 by:[id number] 95% CI (Confidence Interval) PPV (Positive Predictive Value) for myocardial infarction in females is 38 pg/mL, in males 51 pg/mL. The results should be used in conjunction with clinical conditions of myocardial infarction.(Access High Sensitivity Troponin I Instructions For Use, [place]al [place], March 2018) Performed By: #### 1 2559151, [id number], 0117493, 7204656006, 98692718, 4327055, 5773866, 77486088, 9232289, 7439381 ####[facility] [address] [place] [address] U Drug Screenon 09-12-2023 U Amph Scr Negative Invalid Interpretation Code [facility] Comment on above: Performed By: #### 2 556446 ####[facility] [address] [place] [address] U Jo-Ann Scr Negative Invalid Interpretation Code [facility] Comment on above: Performed By: #### 2 874945 ####[facility] [address] [place] [address] U Benzodia Scr Negative Invalid Interpretation Code [facility] Comment on above: Performed By: #### 2 925604 ####[facility] [address] [place] [address] U Cannab Scr Negative Invalid Interpretation Code [facility] Comment on above: Performed By: #### 2 168225 ####[facility] [address] [place] [address] U Cocaine Scr Negative Invalid Interpretation Code [facility] Comment on above: Performed By: #### 2 171652 ####[facility] [address] [place] [address] U Opiate Scr Negative Invalid Interpretation Code [facility] Comment on above: Performed By: #### 2 908746 ####[facility] [address] [place] [address] U PCP Scr Negative Invalid Interpretation Code [facility] Comment on above: Performed By: #### 2 869343 ####[facility] [address] [place] [address] UA With Cult Reflexon 2023 Bilirubin Ql (U) Negative Normal Negative [facility] Comment on above: Performed By: #### 1 0992209 ####[facility] [address] [place] [address] Clarity (U) CLEAR Normal Clear [facility] Comment on above: Performed By: #### 1 3311811 ####[facility] [address] [place] [address] Color (U) YELLOW Normal Yellow [facility] Comment on above: Performed By: #### 1 4849486 ####[facility] [place] [address] Crystals LM Ql (Urine sed) Present Normal [facility] Comment on above: Performed By: #### 1 6209251 ####[address] [address] Epithelial cells.squamous LM.HPF (Urine sed) [#/Area] 0-2 Normal 0-2 [facility] Comment on above: Performed By: #### 1 0528605 ####[address] [address] Glucose Test strip (U) [Mass/Vol] 3+ Abnormal Negative [facility] Comment on above: Performed By: #### 1 8601157 ####[address] [address] Hemoglobin Ql (U) 1+ Abnormal Negative [facility] Comment on above: Performed By: #### 1 3415748 ####[address] [address] Ketones (U) [Mass/Vol] Negative Normal Negative [facility] Comment on above: Performed By: #### 1 5631579 ####[address] [address] Soudan.plasma/Lithi um.RBC (Bld) [Mass ratio] 0-3 Normal 0-3 [facility] Comment on above: Performed By: #### 1 6976801 ####[address] [address] Nitrite Ql (U) Negative Normal Negative [facility] Comment on above: Performed By: #### 1 8411858 ####[address] [address] pH (U) 5.5 [pH] Invalid Interpretation Code 5.0-9.0 [facility] Comment on above: Performed By: #### 1 9687626 ####[address] [address] Protein (U) [Mass/Vol] 1+ Abnormal Negative [facility] Comment on above: Performed By: #### 1 3704684 ####[facility] [address] [place] [address] Specific gravity (U) [Rel density] 1.015 Invalid Interpretation Code 1.005-1.030 [facility] Comment on above: Performed By: #### 1 7005314 ####[address] [address] Type of Urine collection method Clean Catch Normal [facility] Comment on above: Performed By: #### 1 3101417 ####[address] [address] Urobilinogen Qn (U) 0.2 {Itz'U}/dL Normal 0.0-1.0 [facility] Comment on above: Performed By: #### 1 4827018 ####[address] [address] WBC Auto Ql (U) Negative Normal Negative [facility] Comment on above: Performed By: #### 1 2007765 ####[address] [address] WBC LM.HPF (Urine sed) [#/Area] 0-5 Normal 0-5 [facility] Comment on above: Performed By: #### 1 8960690 ####[address] [address] XR Chest Single Viewon 09-12 XR Chest Single View Normal [facility] eGFRon 09-12-2023 eGFR 28 mL/min/1.73 m2 Low >=59 [facility] Comment on above: Order Comment: Order added by Discern Expert. Performed By: #### 1 6847608, 2812686 ####[address] [place] [address] eGFR 27 mL/min/1.73 m2 Low >=59 [facility] Comment on above: Order Comment: Order added by Discern Expert. Performed By: #### 2 010286, 99593837, 6436675 ####[address] [place] [address] eGFR 24 mL/min/1.73 m2 Low >=59 [facility] Comment on above: Order Comment: Order added by Discern Expert. Performed By: #### 1 8658371, 578018396, 8451960, 2440768584, 42596167, 1892772, 1371405, 69499067, 6197966, 2262653 ####[facility] [address] [place] [address] Consent for Procedure/Surger yon 09-11-2023 Consent for Procedure/Surgery [id number]# 1.00TIFF Normal [facility] Correspondence - Woundon Correspondence - Wound [id number]# 1.00TIFF Normal [facility] Consent for Procedure/Surger yon 09-05-2023 Consent for Procedure/Surgery [id number]# 1.00TIFF [facility] Consent for Treatmenton 08-21 Consent for Treatment [id number]#1 .00TIFF Normal [facility] Correspondence - Woundon Correspondence - Wound [id number]# 1.00TIFF Normal [facility] Correspondence - Wound [id number]# 1.00TIFF Normal [facility] Insurance Correspondenceon 0 09-05-2023 Insurance Correspondence [id number]# 1.00TIFF Normal [facility] Multi-Wound Charton 09-05-19 Multi-Wound Chart [id number]# 1.00TIFF Normal [facility] Nursing Assessment - Woundon 09-05-2023 Nursing Assessment - Wound [id number]# 1.00TIFF Normal [facility] Physician Orderon 09-05-2023 Physician Order [id number]# 1.00TIFF Normal [facility] Progress Note - Woundon 08-21 Progress Note - Wound [id number]# 1.00TIFF Normal [facility] No Panel InformationOrdered By: Elisa Ansari on 08-30-2023 GS Occasional White Blood Cells 3+ Gram Positive Cocci 3+ Gram Positive Rods 1+ Gram Negative Rods [facility] Basophils Auto (Bld) [#/Vol] Ordered By: Alban Arrington on 06-21-2023 Basophils (Bld) [#/Vol] 0.1 10*3/uL 0.0-0.2 [facility] Basophils/100 WBC Auto (Bld) Ordered By: Alban Arrington on 06-21-2023 Basophils/100 WBC (Bld) 0.7 % . [facility] Calcium [Mass/volume] in Ser um or PlasmaOrdered By: Alban Arrington on 06-21-2023 Calcium [Mass/Vol] 8.7 mg/dL 8.6-10.3 [facility] Carbon dioxide, total [Moles /volume] in Serum or PlasmaOrdered By: Alban Arrington on 06-21-2023 CO2 [Moles/Vol] 41.1 mmol/L 21.0-31.0 [facility] Chloride [Moles/volume] in S raymond or PlasmaOrdered By: Alban Arrington on 06-21-2023 Chloride [Moles/Vol] 100 mmol/L 98-[address] [facility] Creatinine [Mass/volume] in Serum or PlasmaOrdered By: Alban Arrington on 06-21-2023 Creatinine [Mass/Vol] 1.60 mg/dL 0.70-1.30 [facility] Eosinophils Auto (Bld) [#/Vo l]Ordered By: Alban Arrington on 06-21-2023 Eosinophils (Bld) [#/Vol] 0.5 10*3/uL 0.0-0.45 [facility] Eosinophils/100 WBC Auto (Bl d)Ordered By: Alban Arrington on 06-21-2023 Eosinophils/100 WBC (Bld) 5.4 % . [facility] Erythrocyte distribution wid th Auto (RBC) [Ratio]Ordered By: Alban Arrington on 06-21-2023 Erythrocyte distribution width (RBC) [Ratio] 16.0 % 12.0-14.8 [facility] Glucose Glucometer (BldC) [M ass/Vol]Ordered By: Alban Arrington on 06-21-2023 Glucose [Mass/Vol] 200 mg/dL [facility] Comment on above: Random Glucose Refer ence Range is dependent on time and content of last meal. Glucose of more than 200 mg/dL in a nonstressed, ambulatory subject supports the diagnosis of Diabetes Mellitus. Glucose [Mass/volume] in Ser um or PlasmaOrdered By: Alban Arrington on 06-21-2023 Glucose [Mass/Vol] 60 mg/dL 70-100 [facility] Comment on above: Delta: 220 on -[id number] recommended reference rangeRandom Glucose Reference Range is dependent on time and content of last meal. Glucose of more than 200 mg/dL in a nonstressed, ambulatory subject supports the diagnosis of Diabetes Mellitus. Hematocrit Auto (Bld) [Volum e fraction]Ordered By: Alban Arrington on 06-21-2023 Hematocrit (Bld) [Volume fraction] 46.3 % 38.8-50.0 [facility] Hemoglobin [Mass/volume] in BloodOrdered By: Alban Arrington on 06-21-2023 Hemoglobin (Bld) [Mass/Vol] 14.9 g/dL 13.0-17.0 [facility] Leukocytes [#/volume] correc maria guadalupe for nucleated erythrocytes in Blood by Automated counOrdered By: Alban Arrington on 06-21-2023 WBC corrected for nucl RBC Auto (Bld) [#/Vol] 9.5 10*3/uL 4.1-10.5 [facility] Lymphocytes Auto (Bld) [#/Vo l]Ordered By: Alban Arrington on 06-21-2023 Lymphocytes (Bld) [#/Vol] 2.5 10*3/uL 1.00-4.8 [facility] Lymphocytes/100 WBC Auto (Bl d)Ordered By: Alban Arrington on 06-21-2023 Lymphocytes/100 WBC (Bld) 26.3 % . [facility] MCH Auto (RBC) [Entitic mass ]Ordered By: Alban Arrington on 06-21-2023 MCH (RBC) [Entitic mass] 28.4 pg 27.5-35.2 [facility] MCHC Auto (RBC) [Mass/Vol]Or dered By: Alban Arrington on 06-21-2023 MCHC (RBC) [Mass/Vol] 32.2 g/dL 32.5-35.6 [facility] MCV Auto (RBC) [Entitic vol] Ordered By: Alban Arrington on 06-21-2023 MCV (RBC) [Entitic vol] 88.3 fL 83.5-101 [facility] Magnesium [Mass/volume] in S raymond or PlasmaOrdered By: Alban Arrington on 06-21-2023 Magnesium [Mass/Vol] 1.8 mg/dL 1.9-2.[address] [facility] Monocytes Auto (Bld) [#/Vol] Ordered By: Alban Arrington on 06-21-2023 Monocytes (Bld) [#/Vol] 0.9 10*3/uL 0.0-0.8 [facility] Monocytes/100 WBC Auto (Bld) Ordered By: Ablan Arrington on 06-21-2023 Monocytes/100 WBC (Bld) 9.9 % . [facility] Neutrophils Auto (Bld) [#/Vo l]Ordered By: Alban Arrington on 06-21-2023 Neutrophils (Bld) [#/Vol] 5.5 10*3/uL 1.8-7.7 [facility] Neutrophils/100 WBC Auto (Bl d)Ordered By: Alban Arrington on 06-21-2023 Neutrophils/100 WBC (Bld) 57.7 % . [facility] No Panel InformationOrdered By: Alban Arrington on 06-21-2023 Estimated GFR (CKD-EPI) 47.816 mL/Min [facility] [facility] Creatinine Clearance (Chem 69.61 [facility] Bedside Glucose #2 Comment Will notify dr/rn [facility] Bedside Glucose Comment See comment [facility] Comment on above: Glu2: Will Repeat Te st Nucleated erythrocytes [Pres ence] in Blood by Automated countOrdered By: Alban Arrington on 06-21-2023 Nucleated RBC Auto Ql (Bld) 0.1 /100{WBC} 0-0.5 [facility] Platelet mean volume Auto (B ld) [Entitic vol]Ordered By: Alban Arrington on 06-21-2023 Platelet mean volume (Bld) [Entitic vol] 7.1 fL 6.6-10.1 [facility] Platelets Auto (Bld) [#/Vol] Ordered By: Alban Arrington on 06-21-2023 Platelets (Bld) [#/Vol] 241 10*3/uL 150-450 [facility] Potassium [Moles/volume] in Serum or PlasmaOrdered By: Alban Arrington on 06-21-2023 Potassium [Moles/Vol] 4.4 mmol/L 3.5-5.1 [facility] RBC Auto (Bld) [#/Vol]Ordere d By: Alban Arrington on 06-21-2023 RBC (Bld) [#/Vol] 5.24 10*6/uL 3.90-5.60 [facility] Serum or plasma anion gap de terminationOrdered By: Alban Arrington on 06-21-2023 Anion gap [Moles/Vol] 6.3 mmol/L 6.0-15.0 [facility] Sodium [Moles/volume] in Ser um or PlasmaOrdered By: Alban Arrington on 06-21-2023 Sodium [Moles/Vol] 143 mmol/L 136-145 [facility] Urea nitrogen [Mass/volume] in Serum or PlasmaOrdered By: Alban Arrington on 06-21-2023 Urea nitrogen [Mass/Vol] 38 mg/dL 7-25 [facility] WBC Auto (Bld) [#/Vol]Ordere d By: Alban Arrington on 06-21-2023 WBC (Bld) [#/Vol] 9.5 10*3/uL 4.1-10.5 [facility] Laboratory - Chemistry and C hemistry - challengeOrdered By: Alban Arrington on 06-20-2023 CO2 [Moles/Vol] 38.0 mmol/L 23.0-27.0 [facility] HCO3 (Bld) [Moles/Vol] 36.0 mmol/L 23.0-29.0 [facility] No Panel InformationOrdered By: Alban Arrington on 06-20-2023 Arterial Blood Base Excess 8.1 mmol/L -3.0-3.0 [facility] Arterial Blood Oxygen Content 9.0 mmol/L 6.6-9.7 [facility] Arterial Blood Oxygen Saturation 94.1 % 95.0-100.0 [facility] Arterial Blood Partial Pressure CO2 63.6 mm[Hg] 35.0-45.0 [facility] Arterial Blood Partial Pressure O2 69.0 mm[Hg] 80.0-100.0 [facility] Arterial Blood pH 7.37 7.35-7.45 [facility] Blood Gas Critical Value See comment [facility] Comment on above: Critical Value dickerson d on: 06/20/2023 at 17:52 Blood Gas Liter Flow 5l L/min [facility] Blood Gas Sample Site Right radial [facility] FiO2 Na % [facility] Monocyte distribution width [Entitic volume] in Blood by AutomatedOrdered By: Alban Arrington on 06-19-2023 Monocyte distribution width Auto (Bld) [Entitic vol] 15.91 % 0.00-20.00 [facility] Automated erythrocytes count in urine sediment (number/area)Ordered By: Art Kirby on 06-18-2023 RBC Auto (Urine sed) [#/Area] 0-1 [HPF] 0-4 [facility] Automated leukocytes count i n urine sediment (number/area)Ordered By: Art Kirby on 06-18-2023 WBC Auto (Urine sed) [#/Area] None seen [HPF] 0-4 [facility] Basophils Auto (Bld) [#/Vol] Ordered By: Art Kirby on 06-18-2023 Basophils (Bld) [#/Vol] 0.0 10*3/uL 0.0-0.2 [facility] Basophils/100 WBC Auto (Bld) Ordered By: Art Kirby on 06-18-2023 Basophils/100 WBC (Bld) 0.7 % . [facility] Bilirubin Auto test strip Ql (U)Ordered By: Art Kirby on 06-18-2023 Bilirubin Ql (U) Negative Negative [facility] COVID CepheidOrdered By: Tanvir jeet Kofi on 06-18-2023 SARS-CoV-2 (COVID-19) Ab IA Ql Negative Negative [facility] Comment on above: This is a duplicate [employer] Xpert Xpress CoV-2/Flu/RSV Plus RNA by RT-PCR result to be used for statistical tracking purpose only. SARS-CoV-2 (COVID-19) RNA ERIBERTO+probe Ql (Unsp spec) [facility] Calcium [Mass/volume] in Ser um or PlasmaOrdered By: Art Kirby on 06-18-2023 Calcium [Mass/Vol] 8.8 mg/dL 8.6-10.3 [facility] Carbon dioxide, total [Moles /volume] in Serum or PlasmaOrdered By: Art Kirby on 06-18-2023 CO2 [Moles/Vol] 33.2 mmol/L 21.0-31.0 [facility] Chloride [Moles/volume] in S raymond or PlasmaOrdered By: Art Kirby on 06-18-2023 Chloride [Moles/Vol] 102 mmol/L 98-[address] [facility] Creatinine [Mass/volume] in Serum or PlasmaOrdered By: Art Kirby on 06-18-2023 Creatinine [Mass/Vol] 1.51 mg/dL 0.70-1.30 [facility] Eosinophils Auto (Bld) [#/Vo l]Ordered By: Art Kirby on 06-18-2023 Eosinophils (Bld) [#/Vol] 0.2 10*3/uL 0.0-0.45 [facility] Eosinophils/100 WBC Auto (Bl d)Ordered By: Art Kirby on 06-18-2023 Eosinophils/100 WBC (Bld) 3.1 % . [facility] Erythrocyte distribution wid th Auto (RBC) [Ratio]Ordered By: Art Kirby on 06-18-2023 Erythrocyte distribution width (RBC) [Ratio] 15.4 % 12.0-14.8 [facility] Glucose [Mass/volume] in Ser um or PlasmaOrdered By: Art Kirby on 06-18-2023 Glucose [Mass/Vol] 294 mg/dL 70-100 [facility] Comment on above: ADA recommended refe rence rangeRandom Glucose Reference Range is dependent on time and content of last meal. Glucose of more than 200 mg/dL in a nonstressed, ambulatory subject supports the diagnosis of Diabetes Mellitus. Hematocrit Auto (Bld) [Volum e fraction]Ordered By: Art Kirby on 06-18-2023 Hematocrit (Bld) [Volume fraction] 46.7 % 38.8-50.0 [facility] Hemoglobin [Mass/volume] in BloodOrdered By: Art Kirby on 06-18-2023 Hemoglobin (Bld) [Mass/Vol] 14.9 g/dL 13.0-17.0 [facility] Ketones Auto test strip (U) [Mass/Vol]Ordered By: Art Kirby on 06-18-2023 Ketones (U) [Mass/Vol] Negative Negative [facility] Laboratory - UrinalysisOrder ed By: Art Kirby on 06-18-2023 Hyaline casts LM Ql (Urine sed) None seen [LPF] 0-8 [facility] Leukocytes [#/volume] correc maria guadalupe for nucleated erythrocytes in Blood by Automated counOrdered By: Art Kirby on 06-18-2023 WBC corrected for nucl RBC Auto (Bld) [#/Vol] 6.7 10*3/uL 4.1-10.5 [facility] Lymphocytes Auto (Bld) [#/Vo l]Ordered By: Art Kirby on 06-18-2023 Lymphocytes (Bld) [#/Vol] 1.4 10*3/uL 1.00-4.8 [facility] Lymphocytes/100 WBC Auto (Bl d)Ordered By: Art Kirby on 06-18-2023 Lymphocytes/100 WBC (Bld) 20.2 % . [facility] MCH Auto (RBC) [Entitic mass ]Ordered By: Art Kirby on 06-18-2023 MCH (RBC) [Entitic mass] 28.2 pg 27.5-35.2 [facility] MCHC Auto (RBC) [Mass/Vol]Or dered By: Art Kirby on 06-18-2023 MCHC (RBC) [Mass/Vol] 32.0 g/dL 32.5-35.6 [facility] MCV Auto (RBC) [Entitic vol] Ordered By: Art Kirby on 06-18-2023 MCV (RBC) [Entitic vol] 88.2 fL 83.5-101 [facility] Monocyte distribution width [Entitic volume] in Blood by AutomatedOrdered By: Art Kirby on 06-18-2023 Monocyte distribution width Auto (Bld) [Entitic vol] 15.12 % 0.00-20.00 [facility] Monocytes Auto (Bld) [#/Vol] Ordered By: Art Kirby on 06-18-2023 Monocytes (Bld) [#/Vol] 0.6 10*3/uL 0.0-0.8 [facility] Monocytes/100 WBC Auto (Bld) Ordered By: Art Kirby on 06-18-2023 Monocytes/100 WBC (Bld) 9.2 % . [facility] Natriuretic peptide B [Mass/ Vol]Ordered By: Art Kirby on 06-18-2023 Natriuretic peptide B (Bld) [Mass/Vol] 98.0 pg/mL 5-100 [facility] Neutrophils Auto (Bld) [#/Vo l]Ordered By: Art Kirby on 06-18-2023 Neutrophils (Bld) [#/Vol] 4.5 10*3/uL 1.8-7.7 [facility] Neutrophils/100 WBC Auto (Bl d)Ordered By: Art Kirby on 06-18-2023 Neutrophils/100 WBC (Bld) 66.8 % . [facility] No Panel InformationOrdered By: Art Kirby on 06-18-2023 Estimated GFR (CKD-EPI) 51.256 mL/Min [facility] Creatinine Clearance (Chem 71.87 [facility] Nucleated erythrocytes [Pres ence] in Blood by Automated countOrdered By: Art Kirby on 06-18-2023 Nucleated RBC Auto Ql (Bld) 0.1 /100{WBC} 0-0.5 [facility] Platelet mean volume Auto (B ld) [Entitic vol]Ordered By: Art Kirby on 06-18-2023 Platelet mean volume (Bld) [Entitic vol] 7.2 fL 6.6-10.1 [facility] Platelets Auto (Bld) [#/Vol] Ordered By: Art Kirby on 06-18-2023 Platelets (Bld) [#/Vol] 214 10*3/uL 150-450 [facility] Potassium [Moles/volume] in Serum or PlasmaOrdered By: Art Kirby on 06-18-2023 Potassium [Moles/Vol] 5.2 mmol/L 3.5-5.1 [facility] Protein Auto test strip (U) [Mass/Vol]Ordered By: Art Kirby on 06-18-2023 Protein (U) [Mass/Vol] 100 mg/dL Negative [facility] RBC Auto (Bld) [#/Vol]Ordere d By: Art Kirby on 06-18-2023 RBC (Bld) [#/Vol] 5.30 10*6/uL 3.90-5.60 [facility] Serum or plasma anion gap de terminationOrdered By: Art Kirby on 06-18-2023 Anion gap [Moles/Vol] 8.0 mmol/L 6.0-15.0 [facility] Sodium [Moles/volume] in Ser um or PlasmaOrdered By: Art Kirby on 06-18-2023 Sodium [Moles/Vol] 138 mmol/L 136-145 [facility] Squamous epithelial cells de tection in urine sediment by light microscopyOrdered By: Art Kirby on 06-18-2023 Epithelial cells.squamous LM Ql (Urine sed) 0-1 [HPF] 0-2 [facility] Troponin I.cardiac [Mass/vol ume] in Serum or Plasma by Detection limit <= 0.01 ng/Ordered By: Art Kirby on 06-18-2023 Troponin I.cardiac DL <= 0.01 ng/mL [Mass/Vol] 8.0 pg/mL 0.0-20.0 [facility] Urea nitrogen [Mass/volume] in Serum or PlasmaOrdered By: Art Kirby on 06-18-2023 Urea nitrogen [Mass/Vol] 47 mg/dL 7 [facility] Urine appearanceOrdered By: Art Kirby on 06-18-2023 Appearance (U) Clear Clear [facility] Urine bacteria detection by automated methodOrdered By: Art Kirby on 06-18-2023 Bacteria Auto Ql (U) None seen None Seen [facility] Urine colorOrdered By: Carmen Kirby on 06-18-2023 Color (U) Yellow Yellow [facility] Urine glucose measurement by automated test strip (mass/volume)Ordered By: Art Kirby on 06-18-2023 Glucose Auto test strip (U) [Mass/Vol] >=1000 mg/dL Normal [facility] Urine hemoglobin detection b y automated test stripOrdered By: Art Kirby on 06-18-2023 Hemoglobin Auto test strip Ql (U) Negative Negative [facility] Urine leukocyte esterase det ection by automated test stripOrdered By: Art Kirby on 06-18-2023 Leukocyte esterase Auto test strip Ql (U) Negative Negative [facility] Urine nitrite detection by a utomated test stripOrdered By: Art Kirby on 06-18-2023 Nitrite Auto test strip Ql (U) Negative Negative [facility] Urobilinogen Auto test strip (U) [Mass/Vol]Ordered By: Art Kirby on 06-18-2023 Urobilinogen (U) [Mass/Vol] Normal mg/dL Normal [facility] WBC Auto (Bld) [#/Vol]Ordere d By: Art Kirby on 06-18-2023 WBC (Bld) [#/Vol] 6.7 10*3/uL 4.1-10.5 [facility] pH Auto test strip (U)Ordere d By: Art Kirby on 06-18-2023 pH (U) 1.020 [pH] 1.001-1.030 [facility] pH (U) 5.5 [pH] 5.0-9.0 [facility] CHEMISTRYOrdered By: Lab ROP User on 06-15-2023 Glucose [Mass/Vol] 332 mg/dL High 55 - 99 mg/dL [facility] C POC Subsection Comment on above: Result Comment: Thelma BAE POC Username CAROLINE OSORIO Invalid Interpretation Code [facility] POC Subsection Sodium [Moles/Vol] 734525079980 mmol/L Invalid Interpretation Code [facility] POC Subsection Sodium [Moles/Vol] [id number] mmol/L Invalid Interpretation Code [facility] POC Subsection Glucose [Mass/Vol] 341 mg/dL High 55 - 99 mg/dL [facility] C POC Subsection Comment on above: Result Comment: Thelma BAE POC Username ORTIZ WILD Invalid Interpretation Code [facility] POC Subsection Sodium [Moles/Vol] [id number] mmol/L Invalid Interpretation Code [facility] POC Subsection Sodium [Moles/Vol] 110538999 mmol/L Invalid Interpretation Code [facility] POC Subsection Glucose [Mass/Vol] 172 mg/dL High 55 - 99 mg/dL [facility] C POC Subsection Comment on above: Result Comment: Thelma BAE POC Username ORTIZ WILD Invalid Interpretation Code [facility] POC Subsection Sodium [Moles/Vol] [id number] mmol/L Invalid Interpretation Code [facility] POC Subsection Sodium [Moles/Vol] 107515333 mmol/L Invalid Interpretation Code [facility] POC Subsection CHEMISTRYOrdered By: SYSTEM SYSTEM on 06-15-2023 Anion gap [Moles/Vol] 11 mmol/L Normal 6 - 16 mEq/L [facility] Remisol Calcium [Mass/Vol] 8.5 mg/dL Low 8.9 - 11.1 mg/dL [facility] Chloride [Moles/Vol] 105 mmol/L Normal 101 - 111 mmol/ L [facility] CO2 [Moles/Vol] 28 mmol/L Normal 21 - 31 mmol/L [facility] Remisol Creatinine [Mass/Vol] 1.6 mg/dL High 0.5 - 1.3 mg/dL [facility] Remisol GFR/1.73 sq M.predicted among non-blacks MDRD (S/P/Bld) [Vol rate/Area] 48 mL/min/1.73 m2 Low >=59mL/min/1.[address] [facility] Chem S Comment on above: Interpretive Data: C hronic kidney disease could be indicated at eGFR's of less than 60 mL/min/1.73m2. Kidney failure is indicated at less than 15 mL/min/1.73m2. Glucose [Mass/Vol] 165 mg/dL Normal 55 - 199 mg/dL [facility] Remisol Comment on above: Interpretive Data: I f this glucose result represents a fasting glucose, interpretation should refer to the following reference range: 55-99 mg/dL Potassium [Moles/Vol] 4.7 mmol/L Normal 3.5 - 5.3 mmol/L [facility] Remisol Sodium [Moles/Vol] 139 mmol/L Normal 135 - 145 mmol/L [facility] Remisol Urea nitrogen [Mass/Vol] 63 mg/dL High 5 - 21 mg/dL [facility] Remisol Urea nitrogen/Creatinine [Mass ratio] 39 mg/mg High 10 - 20 [facility] Remisol CHEMISTRYOrdered By: SYSTEM SYSTEM on 06-14-2023 Anion gap [Moles/Vol] 7 mmol/L Normal 6 - 16 mEq/L [facility] Remisol Calcium [Mass/Vol] 8.0 mg/dL Low 8.9 - 11.1 mg/dL [facility] Remisol Chloride [Moles/Vol] 106 mmol/L Normal 101 - 111 mmol/ L [facility] Remisol CO2 [Moles/Vol] 30 mmol/L Normal 21 - 31 mmol/L [facility] Remisol GFR/1.73 sq M.predicted among non-blacks MDRD (S/P/Bld) [Vol rate/Area] 37 mL/min/1.73 m2 Low >=59mL/min/1.[address] [facility] Chem S Comment on above: Interpretive Data: C hronic kidney disease could be indicated at eGFR's of less than 60 mL/min/1.73m2. Kidney failure is indicated at less than 15 mL/min/1.73m2. Glucose [Mass/Vol] 78 mg/dL Normal 55 - 199 mg/dL [facility] Remisol Comment on above: Interpretive Data: I f this glucose result represents a fasting glucose, interpretation should refer to the following reference range: 55-99 mg/dL Potassium [Moles/Vol] 5.1 mmol/L Normal 3.5 - 5.3 mmol/L [facility] Remisol Sodium [Moles/Vol] 138 mmol/L Normal 135 - 145 mmol/L [facility] Urea nitrogen [Mass/Vol] 71 mg/dL High 5 - 21 mg/dL [facility] Urea nitrogen/Creatinine [Mass ratio] 36 mg/mg High 10 - [address] [facility] Remisol CHEMISTRYOrdered By: Sandee Hicks on 06-14-2023 Creatinine [Mass/Vol] 2.0 mg/dL High 0.5 - 1.3 mg/dL [facility] Remisol HEMATOLOGYOrdered By: SYSTEM SYSTEM on 06-14-2023 [...] 6.9 E9/L Normal 2.0 - 7.5 E9/L [facility] HEMATOLOGYOrdered By: Richa Hicks on 06-14-2023 Erythrocyte distribution width (RBC) [Ratio] 15.0 % High 10.9 - 14.2 % [facility] Hematocrit (Bld) [Volume fraction] 42.1 % Normal 37.7 - 49.0 % [facility] Hemoglobin (Bld) [Mass/Vol] 13.3 g/dL Low 13.5 - 17.5 gm/dL [facility] MCH (RBC) [Entitic mass] 28.1 pg Normal 27.0 - 34.0 pg [facility] MCHC (RBC) [Mass/Vol] 31.6 g/dL Normal 31.4 - 36.0 gm/dL [facility] MCV (RBC) [Entitic vol] 88.8 fL Normal 80.0 - 100.0 fL [facility] Platelet mean volume (Bld) [Entitic vol] 7.3 fL Normal 6.4 - 10.8 fL [facility] Platelets (Bld) [#/Vol] 225.0 E9/L Normal 150.0 - 500.0 E9/L [facility] RBC (Bld) [#/Vol] 4.7 E12/L Normal 4.3 - 5.9 E12/L [facility] WBC corrected for nucl RBC Auto (Bld) [#/Vol] 7.8 E9/L Normal 4.0 - 11.0 E9/L [facility] CHEMISTRYOrdered By: SYSTEM SYSTEM on 06-13-2023 Anion gap [Moles/Vol] 9 mmol/L Normal 6 - 16 mEq/L [facility] Remisol Calcium [Mass/Vol] 8.3 mg/dL Low 8.9 - 11.1 mg/dL [facility]isol Chloride [Moles/Vol] 102 mmol/L Normal 101 - 111 mmol/ L [facility] Remisol CO2 [Moles/Vol] 30 mmol/L Normal 21 - 31 mmol/L [facility] Remisol Creatinine [Mass/Vol] 2.4 mg/dL High 0.5 - 1.3 mg/dL [facility] Remisol GFR/1.73 sq M.predicted among non-blacks MDRD (S/P/Bld) [Vol rate/Area] 29 mL/min/1.73 m2 Low >=59mL/min/1.[address] [facility] Chem S Comment on above: Interpretive Data: C hronic kidney disease could be indicated at eGFR's of less than 60 mL/min/1.73m2. Kidney failure is indicated at less than 15 mL/min/1.73m2. Glucose [Mass/Vol] 139 mg/dL Normal 55 - 199 mg/dL [facility] Remisol Comment on above: Interpretive Data: I f this glucose result represents a fasting glucose, interpretation should refer to the following reference range: 55-99 mg/dL Potassium [Moles/Vol] 4.8 mmol/L Normal 3.5 - 5.3 mmol/L [facility] Remisol Sodium [Moles/Vol] 136 mmol/L Normal 135 - 145 mmol/L [facility] Remisol Urea nitrogen [Mass/Vol] 69 mg/dL High 5 - 21 mg/dL [facility] Remisol Urea nitrogen/Creatinine [Mass ratio] 29 mg/mg High 10 - 20 [facility] Remisol CRP [Mass/Vol] 0.7 mg/dL Normal <=1.9mg/dL [facility] Remis ol CHEMISTRYOrdered By: Erin morocho on 06-13-2023 Albumin Elph (U) [Mass fraction] 97.0 mg/dL Invalid Interpretation Code [facility] Comment on above: Interpretive Data: T he reference range and other method performance specifications have not been established for this test; results should be integrated into the clinical context for interpretation. Creatinine (U) [Mass/Vol] 93.4 mg/dL Invalid Interpretation Code [facility] Comment on above: Interpretive Data: T he reference range and other method performance specifications have not been established for this test; results should be integrated into the clinical context for interpretation. Sodium (U) [Moles/Vol] 21 mmol/L Invalid Interpretation Code [facility] Comment on above: Interpretive Data: T he reference range and other method performance specifications have not been established for this test; results should be integrated into the clinical context for interpretation. CHEMISTRYOrdered By: Kaz Schmidt on 06-13-2023 U Osmolality 447 mOsm/kg Normal 50 - 1400 mOsm/kg [facility] Man UA SS HEMATOLOGYOrdered By: SYSTEM SYSTEM [...] 7.7 % Low 14.0 - 50.0 % [facility] [...] 6.0 E9/L Normal 4.0 - 11.0 E9/L [facility] HemeAutoSS Reference Laboratory Testing Ordered By: NaviHealthUser on 06-13-2023 Centromere protein B Ab Qn [...] on above: Result Comment: Perf ormed at: [address] [id number] PhD Vern Grossent Ribonucleoprotein extractable nuclear Ab Qn (S) AI [...] Scleroderma-diffuse, Scleroderma-Autoimmune Myositis Overlap Syndrome, Systemic Lupus Ozvakarwujzwa-Wdboihxljhx-Nttwdoztgl Myositis Overlap Syndrome, Systemic Autoimmune Rheumatic Disease, [...] Cytopenias, Linear Scleroderma, Antiphospholipid Syndrome Performed at: [facility] [address] [id number] PhD Vern Gage Sjogrens syndrome-A extractable nuclear Ab Qn (S) AI Invalid Interpretation Code 0.0-0.9AI [facility] Sjogrens syndrome-B extractable nuclear Ab Qn (S) AI Invalid Interpretation Code 0.0-0.9AI [facility] SendOutsSS Quinn extractable nuclear Ab Qn (S) AI Invalid Interpretation Code 0.0-0.9AI [facility] URINALYSISOrdered By: Yohannes Schmidt on 06-13-2023 Bacteria LM Ql (Urine sed) Trace /HPF Normal Trace/HPF [facility] UA Auto SS Bilirubin Ql (U) Negative [...] AM) Normal Negative [facility] UA Auto SS Soudan.plasma/Lithi um.RBC (Bld) [Mass ratio] 0-3 /HPF Normal [...] AM) Invalid Interpretation Code 1.005 - 1.030 [facility] UA Auto SS UA Spec Desc Clean Catch (06/13/23 10:09 AM) Normal [facility] UA Auto SS Urobilinogen Qn (U) 0.1099015 {Itz'U}/dL Normal 0.0 - 1.0 EU/dL [facility] UA Auto SS WBC Auto Ql (U) Negative (06/13/23 10:09 AM) Normal Negative [facility] UA Auto SS WBC casts LM.LPF (Urine sed) [#/Area] 4-10 (06/13/23 10:09 AM) Normal [facility] UA Auto SS WBC LM.HPF (Urine sed) [#/Area] 0-5 /HPF Normal 0-5/HPF [facility] UA Auto SS CHEMISTRYOrdered By: SYSTEM SYSTEM on 06-12-2023 Procalcitonin 0.07 ng/mL Normal 0.00 - 0.50 ng/mL [facility] Comment on above: Interpretive Data: < [...] Instructions For Use, [employer], March 2018) Magnesium [Mass/Vol] 2.1 mg/dL Normal 1.3 - 2.4 mg/dL [facility] Remisol Troponin I.cardiac [Mass/Vol] 9.20 pg/mL Low 15.90 - 38.40 pg/mL [facility] Remisol Comment on above: Interpretive Data: T he 95% CI (Confidence Interval) PPV (Positive Predictive Value) for myocardial infarction in females is 38 pg/mL, in males 51 pg/mL. The results should be used in conjunction with clinical conditions of myocardial infarction. (Access High Sensitivity Troponin I Instructions For Use, [employer], March 2018) Troponin I.cardiac [Mass/Vol] 7.00 pg/mL Low 15.90 - 38.40 pg/mL [facility] Remisol Comment on above: Interpretive Data: T he 95% CI (Confidence Interval) PPV (Positive Predictive Value) for myocardial infarction in females is 38 pg/mL, in males 51 pg/mL. The results should be used in conjunction with clinical conditions of myocardial infarction. (Access High Sensitivity Troponin I Instructions For Use, [employer], March 2018) Lactate [Mass/Vol] 1.7 mmol/L Normal 0.5 - 2.2 mmol/L [facility] Remisol CHEMISTRYOrdered By: Sasha Arroyo on 06-11-2023 Natriuretic peptide B (Bld) [Mass/Vol] 121 pg/mL High 5 - 80 pg/mL [facility] HemeManSS COAGULATIONOrdered By: Radha Quinn on 06-11-2023 aPTT Coag (PPP) [Time] 33.9 s Normal 25.1 - 36.5 second(s) [facility] Auto Coag Comment on above: Interpretive Data: [...] the same coagulation reagent and instrumentation as [facility]. Currently there are no coagulation studies available worldwide for children to 14 days, and no normal ranges. Heparin therapeutic range (represented by Anti-Factor Xa activity of 0.2 - 0.4 U/mL) corresponds to PTT of 56.6 - 109.0 sec. INR Coag (PPP) [Relative time] 1.0 {INR} Invalid Interpretation Code [facility] Auto Coag Comment on above: Interpretive Data: I NR results are specifically intended to assess patients stabilized on long-term Anticoagulation therapy suggested INR s Less Intensive Anticoagulation 2.0 3.0 Conventional Range 3.0 4.5 PT Coag (PPP) [Time] 11.2 s Normal 9.4 - 1 2.5 second(s) [facility] Auto Coag Comment on above: Interpretive Data: [...] the same coagulation reagent and instrumentation as [facility] [facility]. Currently there are no coagulation studies available worldwide for children to 14 days, and no normal ranges. Blood GasesOrdered By: Akash Tubbs on 06-11-2023 a/A Ratio Art 37.10 % Normal >=0.80% [facility] Resp Auto SS AaDO2 Art 98.0 mm[Hg] High 5.0 - 15.0 mmHg FT Res p Auto SS Allens Test Positive [...] 1.3 mmol/L Normal 0.5 - 2.2 mmol/L [facility] Res p Auto SS marble cutter operator+ Art 140.0 mmol/L Normal 135.0 - 145.0 mmol/L [facility] Resp Auto SS Device Cannula (06/11/23 2:22 PM) Normal [facility] Resp Auto SS Drawn by SAS Invalid Interpretation Code [facility] Resp Auto SS FCOHb Art 2.2 % Normal 1.5 - 4.9 % [facility] Resp Auto SS Comment on above: Interpretive Data: R eference range Nonsmoker <1.5% Smoker <5.0% Heavy Smoker <9.0% FMetHb Art 0.1 % Normal 0.0 - 1.9 % [facility] Resp Auto SS FO2Hb Art 88.7 % Low 93.0 - 100.0 % [facility] Resp Auto SS HCO3 (Bld) [Moles/Vol] 28.8 mmol/L High 22.0 - 26.0 mmol/L [facility] Resp Auto SS Hemoglobin (Bld) [Mass/Vol] 14.5 g/dL Normal 12.0 - 17.0 gm/dL [facility] Resp Auto SS P CO2 Arterial 59.5 mm[Hg] High 35.0 - 45.0 mmHg [facility] C Resp Auto SS P O2 Arterial 57.8 mm[Hg] Low 80.0 - 100.0 mmHg [facility] Resp Auto SS pH (Bld) 7.348 [pH] Low 7.350 - 7.450 [facility] Resp Auto SS Sample Site L Radial (06/11/23 2:22 PM) Normal [facility] Resp Auto SS Sample Type Arterial Draw (06/11/23 2:22 PM) Normal [facility] Resp Auto SS Sodium [Moles/Vol] 32 mmol/L Invalid Interpretation Code [facility] Resp Auto SS HEMATOLOGYOrdered By: SYSTEM SYSTEM on 06-11-2023 Basophils/100 WBC (Bld) 1.1 % Normal 0.0 - 2.0 % FT HemeAutoSS Basophils/Leukocytes Auto (Bld) [Pure # fraction] 0.1 E9/L Normal 0.0 - 0.2 E9/L [facility] HemeAutoSS Eosinophils/100 WBC (Bld) 3.4 % Normal 0.0 - 8.0 % FT [...] 4.5 E9/L Normal 2.0 - 7.5 E9/L [facility] HemeAutoSS HEMATOLOGYOrdered By: Sasha Arroyo on 06-11-2023 Erythrocyte distribution width (RBC) [Ratio] 15.0 % High 10.9 - 14.2 % [facility] HemeAutoSS Hematocrit (Bld) [Volume fraction] 45.4 % Normal 37.7 - 49.0 % [facility] HemeAutoSS Hemoglobin (Bld) [Mass/Vol] 14.4 g/dL Normal 13.5 - 17.5 gm/dL [facility] HemeAutoSS MCH (RBC) [Entitic mass] 28.3 pg Normal 27.0 - 34.0 pg [facility] HemeAutoSS MCHC (RBC) [Mass/Vol] 31.8 g/dL Normal 31.4 - 36.0 gm/dL [facility] HemeAutoSS MCV (RBC) [Entitic vol] 88.9 fL Normal 80.0 - 100.0 fL [facility] HemeAutoSS Platelet mean volume (Bld) [Entitic vol] 7.2 fL Normal 6.4 - 10.8 fL [facility] HemeAutoSS Platelets (Bld) [#/Vol] 233.0 E9/L Normal 150.0 - 500.0 E9/L [facility] HemeAutoSS RBC (Bld) [#/Vol] 5.1 E12/L Normal 4.3 - 5.9 E12/L [facility] HemeAutoSS WBC corrected for nucl RBC Auto (Bld) [#/Vol] 7.1 E9/L Normal 4.0 - 11.0 E9/L [facility] HemeAutoSS MICRO OTHER TESTSOrdered By: Liberty Quinn on 06-11-2023 Rapid COV Int NEG Ctl Pass (06/11/23 2:16 PM) Normal [facility] Man Sero Rapid COV Int POS Ctl Pass (06/11/23 2:16 PM) Normal [facility] Man Sero SARS-CoV+SARS-CoV-2 (COVID-19) Ag IA.rapid Ql (Resp) Not Detected 23 (06/11/23 2:16 PM) Normal Not Detected [facility] Man Sero Comment on above: Interpretive Data: Mariia hdez [employer] System for Rapid Detection of SARS-CoV-2 is [...] For in vitro diagnostic use. In the [facility], only for use under an Emergency Use [...] or revoked sooner. No Panel InformationOrdered By: ANGPROCESSSERBANNER MICROBIOLOGY on 06-11-2023 Blood Culture Charcoal No growth at 4 days. Final to follow at 7 days. [facility] Blood Culture Charcoal No growth at 4 days. Final to follow at 7 days. [facility] CHEMISTRYOrdered By: Tatyana Long on 05-22-2023 HbA1c (Bld) [Mass fraction] 11.0 % High <=5.9% [facility] ChemAutoSS CHEMISTRYOrdered By: Lab ROP User on 08-04-2022 Glucose [Mass/Vol] mg/dL Invalid Interpretation Code 55 - 99 mg/dL [facility] POC Subsection Comment on above: Result Comment: Thelma maxwell RN/ POC Device SN [id number] Invalid Interpretation Code [facility] POC Subsection POC User ID [id number] Invalid Interpretation Code [facility] POC Subsection POC Username JANIA BALDWIN Invalid Interpretation Code [facility] POC Subsection CHEMISTRYOrdered By: SYSTEM SYSTEM on 08-04-2022 Troponin I.cardiac [Mass/Vol] 9.90 pg/mL Low 15.90 - 38.40 pg/mL [facility] Remisol Anion gap [Moles/Vol] 16 mmol/L Normal 6 - 16 mEq/L [facility] Remisol Calcium [Mass/Vol] 9.4 mg/dL Normal 8.9 - 11.1 mg/dL [facility] Remisol Chloride [Moles/Vol] 89 mmol/L Low 101 - 111 mmol/ L [facility] Remisol CO2 [Moles/Vol] 24 mmol/L Normal 21 - 31 mmol/L [facility] Remisol Creatinine [Mass/Vol] 1.7 mg/dL High 0.5 - 1.3 mg/dL [facility] Remisol GFR/1.73 sq M.predicted among blacks MDRD (S/P/Bld) [Vol rate/Area] 50 mL/min/1.73 m2 Low >=59mL/min/1.73 m2 FT Chem S GFR/1.73 sq M.predicted among non-blacks MDRD (S/P/Bld) [Vol rate/Area] 41 mL/min/1.73 m2 Low >=59mL/min/1.[address] [facility] Chem S Glucose [Mass/Vol] 897 mg/dL Invalid [...] 0.5 E9/L Normal 0.2 - 1.0 E9/L [facility] HemeAutoSS Neutrophils/100 WBC (Bld) 70.1 % Normal 36.0 - 75.0 % [facility] HemeAutoSS Neutrophils/Leukocyt es Auto (Bld) [Pure # fraction] 4.2 E9/L Normal 2.0 - 7.5 E9/L [facility] HemeAutoSS HEMATOLOGYOrdered By: Nory Moran on 08-04-2022 Erythrocyte distribution width (RBC) [Ratio] 13.2 % Normal 10.9 - 14.2 % [facility] HemeAutoSS Hematocrit (Bld) [Volume fraction] 47.6 % Normal 37.7 - 49.0 % [facility] HemeAutoSS Hemoglobin (Bld) [Mass/Vol] 15.9 g/dL Normal 13.5 - 17.5 gm/dL [facility] HemeAutoSS MCH (RBC) [Entitic mass] 30.9 pg Normal 27.0 - 34.0 pg [facility] HemeAutoSS MCHC (RBC) [Mass/Vol] 33.4 g/dL Normal 31.4 - 36.0 gm/dL [facility] HemeAutoSS MCV (RBC) [Entitic vol] 92.5 fL Normal 80.0 - 100.0 fL [facility] HemeAutoSS Platelet mean volume (Bld) [Entitic vol] 8.2 fL Normal 6.4 - 10.8 fL [facility] HemeAutoSS Platelets (Bld) [#/Vol] 193.0 E9/L Normal 150.0 - 500.0 E9/L [facility] HemeAutoSS RBC (Bld) [#/Vol] 5.2 E12/L Normal 4.3 - 5.9 E12/L [facility] HemeAutoSS WBC corrected for nucl RBC Auto (Bld) [#/Vol] 6.0 E9/L Normal 4.0 - 11.0 E9/L [facility] HemeAutoSS CHEMISTRYOrdered By: Lab ROP User on 03-09-2022 Glucose [Mass/Vol] 324 mg/dL High 55 - 99 mg/dL FT C POC Subsection Comment on above: Result Comment: Thelma maxwell RN/ POC Device SN [id number] Invalid Interpretation Code FT POC Subsection POC User ID [id number] Invalid Interpretation Code [facility] POC Subsection POC Username HUDSON ABDI Invalid Interpretation Code FT POC Subsection CHEMISTRYOrdered By: Lab ROP User on 03-08-2022 Glucose [Mass/Vol] 395 mg/dL High 55 - 99 mg/dL [facility] C POC Subsection Comment on above: Result Comment: Thelma maxwell RN/MD POC Device SN [id number] Invalid Interpretation Code [facility] POC Subsection POC User ID [id number] Invalid Interpretation Code [facility] POC Subsection POC Username PRIYANKA OSBORN Invalid Interpretation Code FT POC Subsection CHEMISTRYOrdered By: SYSTEM SYSTEM on [...] rate/Area] 57 mL/min/1.73 m2 Low >=59mL/min/1.[address] [facility] Chem S GFR/1.73 sq M.predicted among non-blacks MDRD (S/P/Bld) [Vol rate/Area] 47 mL/min/1.73 m2 Low >=59mL/min/1.[address] [facility] Chem S Globulin (S) [Mass/Vol] 3.4 g/dL Normal 1.4 - 4.0 gm/dL [facility] Remisol Glucose [Mass/Vol] 411 mg/dL High 55 - 199 mg/dL [facility] Remisol Potassium [Moles/Vol] 4.4 mmol/L Normal 3.5 - 5.3 mmol/L [facility] Remisol Protein [Mass/Vol] 7.1 g/dL Normal 6.0 - 7.8 gm/dL F [facility] Remisol Sodium [Moles/Vol] 131 mmol/L Low 135 - 145 mmol/L [facility] Remisol Urea nitrogen [Mass/Vol] 37 mg/dL High 5 - 21 mg/dL [facility] Remisol Urea nitrogen/Creatinine [Mass ratio] 25 mg/mg [...] 43.7 % Normal 37.7 - 49.0 % [facility] HemeAutoSS Hemoglobin (Bld) [Mass/Vol] 14.9 g/dL Normal [...] 4.9 E9/L Normal 4.0 - 11.0 E9/L [facility] HemeAutoSS MICRO OTHER TESTSOrdered By: Sandra Chris [...] PM) Normal Negative [facility] UA Auto SS Soudan.plasma/Lithi um.RBC (Bld) [Mass ratio] 0-3 /HPF Normal [...] PM) Invalid Interpretation Code 1.005 - 1.030 [facility] UA Auto SS UA Spec Desc Clean Catch (03/08/22 11:09 PM) Normal [facility] UA Auto SS Urobilinogen Qn (U) [id number] {Itz'U}/dL Normal 0.0 - 1.0 EU/dL [facility] UA Auto SS WBC Auto Ql (U) Negative (03/08/22 11:09 PM) Normal Negative [facility] UA Auto SS WBC LM.HPF (Urine sed) [#/Area] 0-5 /HPF Normal 0-5/HPF [facility] UA Auto SS Vital Signs Date Time Vital Sign Value Performing Clinician Facility 04-29-2025 11:28-0400 Body height 180.3 cm Mounika Brooke MD Work Phone: [facility] 04-29-2025 11:28-0400 Body mass index (BMI) [Ratio] 36.79 kg/m2 Mounika Brooke MD Work Phone: [facility] 04-29-2025 11:28-0400 Body temperature 97.2 [degF] Mounika Brooke MD Work Phone: [facility] 04-29-2025 11:28-0400 Body weight 119.66 kg Mounika Brooke MD Work Phone: [facility] 04-29-2025 11:28-0400 Diastolic blood pressure 60 mm[Hg] Mounika Brooke MD Work Phone: [facility] 04-29-2025 11:28-0400 Heart rate 89 /min Mounika Brooke MD Work Phone: [facility] 04-29-2025 11:28-0400 SaO2% (BldA) [Mass fraction] 95 % Mounika Brooke MD Work Phone: [facility] 04-29-2025 11:28-0400 Systolic blood pressure 112 mm[Hg] Mounika Brooke MD Work Phone: [facility] 03-13-2025 12:30-0400 Body height 180.3 cm Mounika Brooke MD Work Phone: [facility] 03-13-2025 12:30-0400 Body mass index (BMI) [Ratio] 38.02 kg/m2 Mounika Brooke MD Work Phone: [facility] 03-13-2025 12:30-0400 Body temperature 98.4 [degF] Mounika Brooke MD Work Phone: [facility] 03-13-2025 12:30-0400 Body weight 123.65 kg Mounika Brooke MD Work Phone: [facility] 03-13-2025 12:30-0400 Diastolic blood pressure 60 mm[Hg] Mounika Brooke MD Work Phone: [facility] 03-13-2025 12:30-0400 Heart rate 80 /min Mounika Brooke MD Work Phone: [facility] 03-13-2025 12:30-0400 SaO2% (BldA) [Mass fraction] 92 % Mounika Brooke MD Work Phone: [facility] 03-13-2025 12:30-0400 Systolic blood pressure 124 mm[Hg] Mounika Brooke MD Work Phone: [facility] 02-05-2025 12:28-0400 Body height 180.3 cm Mounika Brooke MD Work Phone: [facility] 02-05-2025 12:28-0400 Body mass index (BMI) [Ratio] 36.43 kg/m2 Mounika Brooke MD Work Phone: [facility] 02-05-2025 12:28-0400 Body temperature 98.71 [degF] Mounika Brooke MD Work Phone: [facility] 02-05-2025 12:28-0400 Body weight 118.48 kg Mounika Brooke MD Work Phone: [facility] 02-05-2025 12:28-0400 Diastolic blood pressure 82 mm[Hg] Mounika Brooke MD Work Phone: [facility] 02-05-2025 12:28-0400 Heart rate 77 /min Mounika Brooke MD Work Phone: [facility] 02-05-2025 12:28-0400 SaO2% (BldA) [Mass fraction] 98 % Mounika Brooke MD Work Phone: [facility] 02-05-2025 12:28-0400 Systolic blood pressure 138 mm[Hg] Mounika Brooke MD Work Phone: [facility] 12-21-2024 15:22-0400 Hourly Rounding [facility] 12-21-2024 15:22-0400 Promise to Return [facility] 12-21-2024 14:32-0400 Hourly Rounding [facility] 12-21-2024 14:32-0400 Promise to Return [facility] 12-21-2024 13:30-0400 Hourly Rounding [facility] 12-21-2024 13:30-0400 Promise to Return [facility] 12-21-2024 11:00-0400 Blood Pressure Location [facility] 12-21-2024 11:00-0400 Body temperature 97.88 [degF] [facility] 12-21-2024 11:00-0400 Diastolic blood pressure 78 mm[Hg] [facility] 12-21-2024 11:00-0400 Heart rate 80 /min [facility] 12-21-2024 11:00-0400 Mean blood pressure 100 mm[Hg] [facility] 12-21-2024 11:00-0400 Respiratory rate 16 /min [facility] 12-21-2024 11:00-0400 SaO2% (BldA) [Mass fraction] 96 % [facility] 12-21-2024 11:00-0400 Systolic blood pressure 145 mm[Hg] [facility] 12-21-2024 08:00-0400 Diastolic blood pressure 88 mm[Hg] [facility] 12-21-2024 08:00-0400 Heart rate 76 /min [facility] 12-21-2024 08:00-0400 Mean blood pressure 113 mm[Hg] [facility] 12-21-2024 08:00-0400 SaO2% (BldA) [Mass fraction] 97 % [facility] 12-21-2024 08:00-0400 Systolic blood pressure 164 mm[Hg] [facility] 12-21-2024 04:00-0400 Body temperature 97.7 [degF] [facility] 12-21-2024 04:00-0400 Diastolic blood pressure 60 mm[Hg] [facility] 12-21-2024 04:00-0400 Diastolic blood pressure 76 mm[Hg] [facility] 12-21-2024 04:00-0400 Heart rate 95 /min [facility] 12-21-2024 04:00-0400 Heart rate 62 /min [facility] 12-21-2024 04:00-0400 Mean blood pressure 90 mm[Hg] [facility] 12-21-2024 04:00-0400 Mean blood pressure 72 mm[Hg] [facility] 12-21-2024 04:00-0400 Respiratory rate 18 /min [facility] 12-21-2024 04:00-0400 SaO2% (BldA) [Mass fraction] 95 % [facility] 12-21-2024 04:00-0400 Systolic blood pressure 97 mm[Hg] [facility] 12-21-2024 04:00-0400 Systolic blood pressure 118 mm[Hg] [facility] 12-21-2024 00:00-0400 Heart rate 62 /min [facility] 12-20-2024 19:37-0400 Heart rate 67 /min [facility] 12-20-2024 14:09-0400 SaO2% (BldA) [Mass fraction] 93.9 % [facility] Resp Auto SS 12-04-2024 14:11-0400 Body height 180.3 cm Mounika Brooke MD Work Phone: [facility] 12-04-2024 14:11-0400 Body mass index (BMI) [Ratio] 35.7 kg/m2 Mounika Brooke MD Work Phone: [facility] 12-04-2024 14:11-0400 Body temperature 97.5 [degF] Mounika Brooke MD Work Phone: [facility] 12-04-2024 14:11-0400 Body weight 116.12 kg Mounika Brooke MD Work Phone: [facility] 12-04-2024 14:11-0400 Diastolic blood pressure 70 mm[Hg] Mounika Brooke MD Work Phone: [facility] 12-04-2024 14:11-0400 Heart rate 111 /min Mounika Brooke MD Work Phone: [facility] 12-04-2024 14:11-0400 SaO2% (BldA) [Mass fraction] 97 % Mounika Brooke MD Work Phone: [facility] 12-04-2024 14:11-0400 Systolic blood pressure 120 mm[Hg] Mounika Brooke MD Work Phone: [facility] 12-02-2024 15:00-0400 Heart rate 74 /min Nicole Jonathon [facility] 12-02-2024 15:00-0400 SaO2% (BldA) [Mass fraction] 93 % Nicole Jonathon [facility] 12-02-2024 15:00-0400 Diastolic blood pressure 97 mm[Hg] Nicole Jonathon [facility] 12-02-2024 15:00-0400 Mean blood pressure 120 mm[Hg] Nicole Jonathon [facility] 12-02-2024 15:00-0400 Respiratory rate 18 /min Nicole Jonathon [facility] 12-02-2024 15:00-0400 Systolic blood pressure 166 mm[Hg] Nicole Jonathon [facility] 12-02-2024 14:00-0400 SaO2% (BldA) [Mass fraction] 97 % Nicole Jonathon [facility] 12-02-2024 14:00-0400 Heart rate 78 /min Nicole Jonathon [facility] 12-02-2024 14:00-0400 Diastolic blood pressure 86 mm[Hg] Nicole Jonathon [facility] 12-02-2024 14:00-0400 Mean blood pressure 113 mm[Hg] Nicole Jonathon [facility] 12-02-2024 14:00-0400 Systolic blood pressure 167 mm[Hg] Nicole Jonathon [facility] 12-02-2024 13:00-0400 SaO2% (BldA) [Mass fraction] 96 % Nicole Jonathon [facility] 12-02-2024 13:00-0400 Heart rate 73 /min Nicole Jonathon [facility] 12-02-2024 13:00-0400 Diastolic blood pressure 98 mm[Hg] Nicole Myers [facility] 12-02-2024 13:00-0400 Mean blood pressure 123 mm[Hg] Nicole Myers [facility] 12-02-2024 13:00-0400 Systolic blood pressure 173 mm[Hg] Nicole Myers [facility] 12-02-2024 12:42-0400 Body temperature 96.8 [degF] Nicole Myers [facility] 12-02-2024 12:42-0400 Heart rate 81 /min Nicole Myers [facility] 12-02-2024 12:42-0400 Respiratory rate 20 /min Nicole Myers [facility] 09-04-2024 14:00-0500 Body height 180.3 cm Kayla Sweeney MD Work Phone: [facility] 09-04-2024 14:00-0500 Body mass index (BMI) [Ratio] 39.05 kg/m2 Kayla Sweeney MD Work Phone: [facility] 09-04-2024 14:00-0500 Body weight 127.01 kg Kayla Sweeney MD Work Phone: [facility] 09-04-2024 14:00-0500 Diastolic blood pressure 66 mm[Hg] Kayla Sweeney MD Work Phone: [facility] 09-04-2024 14:00-0500 Heart rate 80 /min Kayla Sweeney MD Work Phone: [facility] 09-04-2024 14:00-0500 Respiratory rate 18 /min Kayla Sweeney MD Work Phone: [facility] 09-04-2024 14:00-0500 Systolic blood pressure 116 mm[Hg] Kayla Sweeney MD Work Phone: [facility] 07-15-2024 14:27-0500 Body height 180.3 cm Kayla Sweeney MD Work Phone: [facility] 07-15-2024 14:27-0500 Body mass index (BMI) [Ratio] 38.22 kg/m2 Kayla Sweeney MD Work Phone: [facility] 07-15-2024 14:27-0500 Body weight 124.29 kg Kayla Sweeney MD Work Phone: [facility] 07-15-2024 14:27-0500 Diastolic blood pressure 58 mm[Hg] Kayla Sweeney MD Work Phone: [facility] 07-15-2024 14:27-0500 Heart rate 81 /min Kayla Sweeney MD Work Phone: [facility] 07-15-2024 14:27-0500 Respiratory rate 18 /min Kayla Sweeney MD Work Phone: [facility] 07-15-2024 14:27-0500 Systolic blood pressure 120 mm[Hg] Kayla Sweeney MD Work Phone: [facility] 07-11-2024 13:50-0500 Body height 175.3 cm Mounika Brooke MD Work Phone: [facility] 07-11-2024 13:50-0500 Body mass index (BMI) [Ratio] 43.15 kg/m2 Mounika Brooke MD Work Phone: [facility] 07-11-2024 13:50-0500 Body temperature 97.81 [degF] Mounika Brooke MD Work Phone: [facility] 07-11-2024 13:50-0500 Body weight 132.54 kg Mounika Brooke MD Work Phone: [facility] 07-11-2024 13:50-0500 Diastolic blood pressure 80 mm[Hg] Mounika Brooke MD Work Phone: [facility] 07-11-2024 13:50-0500 Heart rate 73 /min Mounika Brooke MD Work Phone: [facility] 07-11-2024 13:50-0500 SaO2% (BldA) [Mass fraction] 92 % Mounika Brooke MD Work Phone: [facility] 07-11-2024 13:50-0500 Systolic blood pressure 130 mm[Hg] Mounika Brooke MD Work Phone: [facility] 07-09-2024 14:40-0500 Body temperature [...] 43.3 kg/m2 Mounika Brooke MD Work Phone: [facility] 07-03-2024 12:45-0500 Body temperature 98.01 [degF] Mounika Brooke MD Work Phone: [facility] 07-03-2024 12:45-0500 Body weight 133 kg Mounika Brooke MD Work Phone: [facility] 07-03-2024 12:45-0500 Heart rate 84 /min Mounika Brooke MD Work Phone: [facility] 07-03-2024 12:45-0500 SaO2% (BldA) [Mass fraction] 93 % Mounika Brooke MD Work Phone: [facility] 06-23-2024 13:39-0500 Body temperature 97.7 [degF] [facility] 06-23-2024 13:39-0500 Diastolic blood pressure 79 mm[Hg] [facility] 06-23-2024 13:39-0500 Heart rate 71 /min [facility] 06-23-2024 13:39-0500 Respiratory rate 22 /min [facility] 06-23-2024 13:39-0500 SaO2% (BldA) [Mass fraction] 92 % [facility] 06-23-2024 13:39-0500 Systolic blood pressure 182 mm[Hg] [facility] 06-21-2024 13:36-0400 Body height 177.8 cm Jennifer ROWAN Work Phone: [facility] 06-21-2024 13:36-0400 Body mass index (BMI) [Ratio] 41.78 kg/m2 Jennifer ROWAN Work Phone: [facility] 06-21-2024 13:36-0400 Body temperature 98.1 [degF] Jennifer Short PA Work Phone: [facility] 06-21-2024 13:36-0400 Body weight 132.09 kg Jennifer Short PA Work Phone: [facility] 06-21-2024 13:36-0400 Diastolic blood pressure 89 mm[Hg] Jennifer Short PA Work Phone: [facility] 06-21-2024 13:36-0400 Heart rate 71 /min Jennifer Shotr PA Work Phone: [facility] 06-21-2024 13:36-0400 SaO2% (BldA) [Mass fraction] 91 % Jennifer Short PA Work Phone: [facility] 06-21-2024 13:36-0400 Systolic blood pressure 139 mm[Hg] Jennifer ROWAN Work Phone: [facility] 04-29-2024 14:19-0400 Body height 177.8 cm Mounika Brooke MD Work Phone: [facility] 04-29-2024 14:19-0400 Body mass index (BMI) [Ratio] 42.47 kg/m2 Mounika Brooke MD Work Phone: [facility] 04-29-2024 14:19-0400 Body temperature 98.01 [degF] Mounika Brooke MD Work Phone: [facility] 04-29-2024 14:19-0400 Body weight 134.26 kg Mounika Brooke MD Work Phone: [facility] 04-29-2024 14:19-0400 Diastolic blood pressure 70 mm[Hg] Mounika Brooke MD Work Phone: [facility] 04-29-2024 14:19-0400 Heart rate 75 /min Mounika Brooke MD Work Phone: [facility] 04-29-2024 14:19-0400 SaO2% (BldA) [Mass fraction] 88 % Mounika Brooke MD Work Phone: [facility] 04-29-2024 14:19-0400 Systolic blood pressure 138 mm[Hg] Mounika Brooke MD Work Phone: [facility] 02-09-2024 14:31-04[address] [facility] 02-09-2024 14:31-0400 Body temperature 97.88 [degF] Gisselle Orzech [facility] 02-09-2024 14:31-0400 Diastolic blood pressure 86 mm[Hg] Gisselle Orzech [facility] 02-09-2024 14:31-0400 Heart rate 72 /min Gisselle Orzech [facility] 02-09-2024 14:31-0400 Respiratory rate 16 /min Gisselle Orzech [facility] 02-09-2024 14:31-0400 Systolic blood pressure 138 mm[Hg] Gisselle Orzech [facility] 01-15-2024 17:00-0400 Diastolic blood pressure 89 mm[Hg] Nicole Jonathon [facility] 01-15-2024 17:00-0400 Heart rate 77 /min Nicole Jonathon [facility] 01-15-2024 17:00-0400 Mean blood pressure 102 mm[Hg] Nicole Jonathon [facility] 01-15-2024 17:00-0400 Respiratory rate 15 /min Nicole Jonathon [facility] 01-15-2024 17:00-0400 Systolic blood pressure 128 mm[Hg] Nicole Jonathon [facility] 01-15-2024 16:24-0400 Diastolic blood pressure 93 mm[Hg] Nicole Jonathon [facility] [facility]24 16:24-0400 Heart rate 69 /min Nicole Jonathon [facility] 01-15-2024 16:24-0400 Respiratory rate 18 /min Nicole Myers [facility] 01-15-2024 16:24-0400 SaO2% (BldA) [Mass fraction] 92 % Nicole Myers [facility] 01-15-2024 16:24-0400 Systolic blood pressure 156 mm[Hg] Nicole Myers [facility] 11-17-2023 12:30-0400 Diastolic blood pressure 78 mm[Hg] MD Mounika Brooke Work Phone: [facility] 11-17-2023 12:30-0400 Systolic blood pressure 153 mm[Hg] MD Mounika Brooke Work Phone: [facility] 11-17-2023 12:12-0400 Heart rate 82 /min MD Mounika Brooke Work Phone: [facility] 11-17-2023 12:12-0400 Respiratory rate 20 /min MD Mounika Brooke Work Phone: [facility] 11-17-2023 11:26-0400 Body temperature 97.6 [degF] MD Mounika Brooke Work Phone: [facility] 11-17-2023 11:26-0400 SaO2% (BldA) [Mass fraction] 96 % MD Mounika Brooke Work Phone: [facility] 11-17-2023 09:15-0400 Inhaled oxygen flow rate 4 L/min MD Mounika Brooke Work Phone: [facility] 11-17-2023 04:17-0400 Body weight 133.2 kg MD Mounika Brooke Work Phone: [facility] 11-17-2023 00:50-0400 Inhaled oxygen concentration 40 % MD Mounika Brokoe Work Phone: [facility] 11-13-2023 15:19-0400 Body height 180.34 cm MD Mounika Brooke Work Phone: [facility] 11-11-2023 16:30-0400 Diastolic blood pressure 65 mm[Hg] [facility] 11-11-2023 16:30-0400 Heart rate 63 /min [facility] 11-11-2023 16:30-0400 Mean blood pressure 79 mm[Hg] [facility] 11-11-2023 16:30-0400 Respiratory rate 18 /min [facility] 11-11-2023 16:30-0400 SaO2% (BldA) [Mass fraction] 96 % [facility] 11-11-2023 16:30-0400 Systolic blood pressure 106 mm[Hg] [facility] 11-11-2023 16:00-0400 Diastolic blood pressure 62 mm[Hg] [facility] 11-11-2023 16:00-0400 Heart rate 64 /min [facility] 11-11-2023 16:00-0400 Mean blood pressure 84 mm[Hg] [facility] 11-11-2023 16:00-0400 Respiratory rate 15 /min [facility] 11-11-2023 16:00-0400 Systolic blood pressure 128 mm[Hg] [facility] 11-11-2023 15:30-0400 Diastolic blood pressure 77 mm[Hg] [facility] 11-11-2023 15:30-0400 Heart rate 62 /min [facility] 11-11-2023 15:30-0400 Mean blood pressure 98 mm[Hg] [facility] 11-11-2023 15:30-0400 Respiratory rate 20 /min [facility] 11-11-2023 15:30-0400 SaO2% (BldA) [Mass fraction] 95 % [facility] 11-11-2023 15:30-0400 Systolic blood pressure 141 mm[Hg] [facility] 11-11-2023 09:31-0400 FIO2 50 1 [facility] 11-11-2023 09:31-0400 Respiratory rate 20 /min [facility] 11-11-2023 09:17-0400 SaO2% (BldA) [Mass fraction] 88.7 % [facility] 11-11-2023 09:15-0400 Respiratory rate 24 /min [facility] 11-11-2023 09:07-0400 Respiratory rate 24 /min [facility] 11-11-2023 09:05-0400 Body temperature 98.6 [degF] [facility] 11-11-2023 09:05-0400 Heart rate 77 /min [facility] 11-11-2023 09:05-0400 Heart rate 76 /min [facility] 11-11-2023 08:05-0400 Body temperature 98.6 [degF] [facility] 10-30-2023 05:17-0400 Body temperature 98.42 [degF] Kaylinn Dokken [facility] 10-30-2023 05:17-0400 Diastolic blood pressure 70 mm[Hg] Kaylinn Dokken [facility] 10-30-2023 05:17-0400 Heart rate 80 /min Kaylinn Dokken [facility] 10-30-2023 05:17-0400 Respiratory rate 20 /min Kaylinn Dokken [facility] 10-30-2023 05:17-0400 SaO2% (BldA) [Mass fraction] 94 % Staci Beck [facility] 10-30-2023 05:17-0400 Systolic blood pressure 153 mm[Hg] Staci Beck [facility] 10-24-2023 23:08-0500 SaO2% (BldA) [Mass fraction] 93 % [facility] Comment on above: Order Comment: Specimen Type: BLOOD SPEC IMEN Ordering Facility: [facility] Address: [address] [place] [address] Performed By: #### 1 [id number], [id number] #### [facility] CLIA [id number] [address] [place] [address] 10-24-2023 18:39-0500 SaO2% (BldA) [Mass fraction] 96 % [facility] Comment on above: Order Comment: Specimen Type: BLOOD SPEC IMEN Ordering Facility: [facility] Address: [address] [place] [address] Performed By: #### P TTAC #### [facility] CLIA [id number] [address] [place] [address] OF [facility] 10-15-2023 06:20-0500 SaO2% (BldA) [Mass fraction] 98 % Mone Martinez [facility] 10-15-2023 06:12-0500 Body temperature 98.06 [degF] Mone Martinez [facility] 10-15-2023 06:12-0500 Diastolic blood pressure 75 mm[Hg] Mnoe Martinez [facility] 10-15-2023 06:12-0500 [...] 97 [degF] MD Mounika Brooke Work Phone: [facility] 10-12-2023 11:38-0500 Diastolic blood pressure 76 mm[Hg] MD Mounika Brooke Work Phone: [facility] 10-12-2023 11:38-0500 Heart rate 74 /min MD Mounika Brooke Work Phone: [facility] 10-12-2023 11:38-0500 Inhaled oxygen flow rate 4 L/min MD Mounika Brooke Work Phone: [facility] 10-12-2023 11:38-0500 Respiratory rate 18 /min MD Mounika Brooke Work Phone: [facility] 10-12-2023 11:38-0500 SaO2% (BldA) [Mass fraction] 97 % MD Mounika Brooke Work Phone: [facility] 10-12-2023 11:38-0500 Systolic blood pressure 148 mm[Hg] MD Mounika Brooke Work Phone: [facility] 10-12-2023 05:08-0500 Body weight 135.6 kg MD Mounika Brooke Work Phone: [facility] 10-12-2023 00:00-0500 Inhaled oxygen concentration 4 % MD Mounika Brooke Work Phone: [facility] 10-09-2023 14:10-0500 Body height 182.88 cm MD Mounika Brooke Work Phone: [facility] 10-06-2023 23:47-0500 Body temperature 98.4 [degF] MD Mounika Brooke Work Phone: [facility] 10-06-2023 23:47-0500 Diastolic blood pressure 78 mm[Hg] MD Mounika Brooke Work Phone: [facility] 10-06-2023 23:47-0500 Heart rate 80 /min MD Mounika Brooke Work Phone: [facility] 10-06-2023 23:47-0500 Inhaled oxygen flow rate 6 L/min MD Mounika Brooke Work Phone: [facility] 10-06-2023 23:47-0500 Respiratory rate 20 /min MD Mounika Brooke Work Phone: [facility] 10-06-2023 23:47-0500 SaO2% (BldA) [Mass fraction] 94 % MD Mounika Brooke Work Phone: [facility] 10-06-2023 23:47-0500 Systolic blood pressure 160 mm[Hg] MD Mounika Brooke Work Phone: [facility] 10-06-2023 20:13-0500 Body height 182.88 cm MD Mounika Brooke Work Phone: [facility] 10-06-2023 20:13-0500 Body weight 136.98 kg MD Mounika Brooke Work Phone: [facility] 09-24-2023 20:07-0500 Body temperature 97.52 [degF] Jose Miguel Phan [facility] 09-24-2023 20:07-0500 Diastolic [...] 09-24-2023 20:07-0500 Systolic blood pressure 150 mm[Hg] [facility] Sylvester [facility] 09-17-2023 15:00-0500 Diastolic blood pressure 67 mm[Hg] [facility] 09-17-2023 15:00-0500 Heart rate 80 /min [facility] 09-17-2023 15:00-0500 Mean blood pressure 94 mm[Hg] [facility] 09-17-2023 15:00-0500 Respiratory rate 18 /min [facility] 09-17-2023 15:00-0500 SaO2% (BldA) [Mass fraction] 93 % [facility] 09-17-2023 15:00-0500 Systolic blood pressure 147 mm[Hg] [facility] 09-17-2023 14:23-0500 Body temperature 98.24 [degF] [facility] 09-17-2023 14:23-0500 Diastolic blood pressure 56 mm[Hg] [facility] 09-17-2023 14:23-0500 Heart rate 79 /min [facility] 09-17-2023 14:23-0500 Respiratory rate 20 /min [facility] 09-17-2023 14:23-0500 SaO2% (BldA) [Mass fraction] 92 % [facility] 09-17-2023 14:23-0500 Systolic blood pressure 99 mm[Hg] [facility] 08-06-2023 13:13-0500 Body temperature 97.88 [degF] [facility] 08-06-2023 13:13-0500 Diastolic blood pressure 78 mm[Hg] [facility] 08-06-2023 13:13-0500 Heart rate 91 /min [facility] 08-06-2023 13:13-0500 Respiratory rate 20 /min [facility] 08-06-2023 13:13-0500 SaO2% (BldA) [Mass fraction] 93 % [facility] 08-06-2023 13:13-0500 Systolic blood pressure 178 mm[Hg] [facility] 06-21-2023 13:55-0400 Diastolic blood pressure 74 mm[Hg] DO [facility] 06-21-2023 13:55-0400 Inhaled oxygen flow rate 4 L/min DO [facility] 06-21-2023 13:55-0400 SaO2% (BldA) [Mass fraction] 94 % DO [facility] 06-21-2023 13:55-0400 Systolic blood pressure 152 mm[Hg] DO [facility] 06-21-2023 13:52-0400 Body temperature 97.3 [degF] DO [facility] 06-21-2023 13:52-0400 Heart rate 72 /min DO [facility] 06-21-2023 13:52-0400 Respiratory rate 20 /min DO [facility] 06-21-2023 06:00-0400 Body weight 147.4 kg DO [facility] 06-19-2023 15:26-0400 Body height 182.88 cm DO [facility] 06-19-2023 02:16-0400 Diastolic blood pressure 77 mm[Hg] DO Reid Mendy Work Phone: [facility] 06-19-2023 02:16-0400 Heart rate 77 /min DO Reid Mendy Work Phone: [facility] 06-19-2023 02:16-0400 Inhaled oxygen flow rate 6 L/min DO Reid Mendy Work Phone: [facility] 06-19-2023 02:16-0400 Respiratory rate 20 /min DO Reid Mendy Work Phone: [facility] 06-19-2023 02:16-0400 SaO2% (BldA) [Mass fraction] 91 % DO Reid Mendy Work Phone: [facility] 06-19-2023 02:16-0400 Systolic blood pressure 170 mm[Hg] DO Reid Mendy Work Phone: [facility] 06-18-2023 21:43-0400 Body height 182.88 cm DO Reid Mendy Work Phone: [facility] 06-18-2023 21:43-0400 Body temperature 98.5 [degF] DO Reid Mendy Work Phone: [facility] 06-18-2023 21:43-0400 Body weight 140.61 kg DO Reid Mendy Work Phone: [facility] 06-15-2023 17:22-0400 [facility] 06-15-2023 17:22-0400 Promise to Return [facility]itoasia PAGANDAVID [facility] 06-15-2023 16:25-0400 Hourly Rounding Margaritoasia PAGANDAVID [facility] 06-15-2023 16:25-0400 Promise to Return [facility] 06-15-2023 16:20-0400 Heart rate 84 /min [facility] 06-15-2023 16:20-0400 Respiratory rate 20 /min [facility] 06-15-2023 16:07-0400 Heart rate 80 /min [facility] 06-15-2023 16:07-0400 Respiratory rate 20 /min [facility] 06-15-2023 16:07-0400 SaO2% (BldA) [Mass fraction] 93 % [facility] 06-15-2023 16:00-0400 Body temperature 98.42 [degF] [facility] 06-15-2023 16:00-0400 Diastolic blood pressure 79 mm[Hg] [facility] 06-15-2023 16:00-0400 Heart rate 88 /min [facility] 06-15-2023 16:00-0400 Systolic blood pressure 176 mm[Hg] [facility] 06-15-2023 15:25-0400 Hourly Rounding [facility] 06-15-2023 15:25-0400 Promise to Return [facility] 06-15-2023 12:02-0400 Heart rate 83 /min [facility] 06-15-2023 12:02-0400 Respiratory rate 20 /min [facility] 06-15-2023 12:02-0400 SaO2% (BldA) [Mass fraction] 92 % [facility] 06-15-2023 11:54-0400 SaO2% (BldA) [Mass fraction] 92 % [facility] 06-15-2023 10:15-0400 Diastolic blood pressure 87 mm[Hg] [facility] 06-15-2023 10:15-0400 Mean blood pressure 114 mm[Hg] [facility] 06-15-2023 10:15-0400 Systolic blood pressure 168 mm[Hg] [facility]arito [facility] 06-15-2023 10:15-0400 Body temperature 98.06 [degF] [facility] 06-15-2023 08:30-0400 gluc 172 mg/dL [facility] 06-15-2023 07:35-0400 Diastolic blood [facility] 83 mm[Hg] [facility] 07:35-0400 Mean blood pressure 112 mm[Hg] [facility] 06-15-2023 07:35-0400 Systolic blood pressure 168 mm[Hg] [facility] 06-15-2023 07:33-0400 Body temperature 98.06 [degF] [facility] 06-15-2023 00:39-0400 Blood Pressure Location [facility] 06-14-2023 20:00-0400 Body temperature 98.42 [degF] [facility] 06-14-2023 16:12-0400 Blood Pressure Location [facility] 06-14-2023 16:12-0400 Body temperature 97.7 [degF] [facility] 06-14-2023 16:12-0400 Mean blood [facility] 123 mm[facility]Hg[facility] 08:20-0400 Mean blood pressure 122 mm[Hg] [facility] 06-14-2023 08:19-0400 Body temperature 98.06 [degF] [facility] 06-14-2023 05:50-0400 FIO2 50 % [facility] 06-14-2023 00:50-0400 Mean blood pressure 108 mm[Hg] [facility] 06-13-2023 23:55-0400 FIO2 50 % [facility] 06-13-2023 20:00-0400 gluc 190 mg/dL Cindy PAGANGENESIS [facility] 06-13-2023 11:54-0400 FIO2 50 % Cindy RICARDO [facility] 06-13-2023 08:00-0400 Blood Pressure Location [facility] HALEIGH [facility] 06-13-2023 08:00-0400 Mean blood pressure 104 mm[Hg] Cindy RICARDO [facility] 06-12-2023 16:38-0400 gluc 296 mg/dL Cindy RICARDO [facility] 06-11-2023 21:00-0400 Heart rate 73 /min Cindy RICARDO [facility] 06-11-2023 20:25-0400 Heart rate 75 /min [facility]23 19:30-0400 Respiratory rate 16 /min [facility] 06-11-2023 18:30-0400 Respiratory rate 14 /[facility] 06-11-2023 14:22-0400 SaO2% (BldA) [Mass fraction] 90.8 % Cindy RICARDO [facility] Resp Auto SS 05-22-2023 13:29-0400 Blood Pressure Location Migue STROUD [facility] 05-22-2023 13:29-0400 Diastolic blood pressure 74 mm[Hg] Migue STROUD [facility] 05-22-2023 13:29-0400 Heart rate 74 /min Migue MARLI [facility] 05-22-2023 13:29-0400 SaO2% (BldA) [Mass fraction] 87 % Migue STROUD [facility] 05-22-2023 13:29-0400 Systolic blood pressure 135 mm[Hg] Migue STROU[facility] 05-08-2023 10:30-0400 Diastolic blood pressure 81 mm[Hg] Bashar Lapeer [facility] 05-08-2023 10:30-0400 Mean blood pressure 113 mm[Hg] Bashar Lapeer [facility] 05-08-2023 10:30-0400 Systolic blood pressure 176 mm[Hg] Bashar Lapeer [facility] 05-08-2023 10:01-0400 Blood Pressure Location Bashar Lapeer [facility] 05-08-2023 10:01-0400 Diastolic blood pressure 84 mm[Hg] Bashar Lapeer [facility] 05-08-2023 10:01-0400 Heart rate 68 /min Bashar Lapeer [facility] 05-08-2023 10:01-0400 SaO2% (BldA) [Mass fraction] 88 % Bashar Lapeer [facility] 05-08-2023 10:01-0400 Systolic blood pressure 175 mm[Hg] Bashar Lapeer [facility] 12-02-2022 11:12-0400 Diastolic blood pressure 86 mm[Hg] Migue STROUD [facility] 12-02-2022 11:12-0400 Mean blood pressure 105 mm[Hg] Migue KLINEWOOD [facility] 12-02-2022 11:12-0400 Systolic blood pressure 142 mm[Hg] Migue KLINEWOOD [facility] 12-02-2022 10:55-0400 Blood Pressure Location Migue STROUD [facility] 12-02-2022 10:55-0400 Diastolic blood pressure 82 mm[Hg] Migue MARLI [facility] 12-02-2022 10:55-0400 Heart rate 74 /min Migue MARLI [facility] 12-02-2022 10:55-0400 SaO2% (BldA) [Mass fraction] 92 % Migue MARLI [facility] 12-02-2022 10:55-0400 Systolic blood pressure 169 mm[Hg] Migue MARLI [facility] 09-13-2022 13:21-0500 Diastolic blood pressure 92 mm[Hg] Migue MARLI [facility] 09-13-2022 13:21-0500 Mean blood pressure 115 mm[Hg] Migue MARLI [facility] 09-13-2022 13:21-0500 Systolic blood pressure 160 mm[Hg] Migue MARLI [facility] 09-13-2022 13:16-0500 Blood Pressure Location Migue MARLI [facility] 09-13-2022 13:16-0500 Body temperature 97.7 [degF] Migue MARLI [facility] 09-13-2022 13:16-0500 Diastolic blood pressure 83 mm[Hg] Migue MARLI [facility] 09-13-2022 13:16-0500 Heart rate 78 /min Migue MARLI [facility] 09-13-2022 13:16-0500 SaO2% (BldA) [Mass fraction] 96 % Migue STROUD [facility] 09-13-2022 13:16-0500 Systolic blood pressure 193 mm[Hg] Migue STROUD [facility] 08-04-2022 17:12-0500 Diastolic blood pressure 88 mm[Hg] [...] Mone Martinez [facility] 08-04-2022 16:30-0500 Systolic blood pressure 134 mm[Hg] Mone Juan [facility] 08-04-2022 15:35-0500 Diastolic blood pressure 103 mm[Hg] Mone Juan [facility] 08-04-2022 15:35-0500 Heart rate 73 /min Mone Juan [facility] 08-04-2022 15:35-0500 Respiratory [...] 03-29-2022 13:04-0400 Blood Pressure Location Migue STROU[facility] 03-29-2022 13:04-0400 Body temperature 96.98 [degF] Migue STROUD [facility] 03-29-2022 13:04-0400 Diastolic blood pressure 73 mm[Hg] Migue STROUD [facility] 03-29-2022 13:04-0400 Heart rate 72 /min Migue STROU[facility] 03-29-2022 13:04-0400 SaO2% (BldA) [Mass fraction] 95 % Migue STROU[facility] 03-29-2022 13:04-0400 Systolic blood pressure 132 mm[Hg] Migue STROU[facility] 03-09-2022 00:59-0400 Body temperature 98.6 [degF] Jose [...] Diastolic blood pressure 77 mm[Hg] Jose Miguel Phan [facility] 03-08-2022 22:56-0400 Heart rate 92 /min Jose Miguel Phan [facility] 03-08-2022 22:56-0400 Respiratory rate 15 /min Jose Miguel Phan [facility] 03-08-2022 22:56-0400 SaO2% (BldA) [Mass fraction] 94 % Jose Miguel Phan [facility] 03-08-2022 22:56-0400 Systolic blood pressure 132 mm[Hg] Jose Miguel Phan [facility] 01-11-2022 12:33-0400 Blood Pressure Location Migue STROU[facility] 01-11-2022 12:33-0400 Body temperature 98.06 [degF] Migue STROUD [facility] 01-11-2022 12:33-0400 Diastolic blood pressure 82 mm[Hg] Migue STROUD [facility] 01-11-2022 12:33-0400 Heart rate 72 /min Migue STROU[facility] 01-11-2022 12:33-0400 SaO2% (BldA) [Mass fraction] 96 % Migue STROU[facility] 01-11-2022 12:33-0400 Systolic blood pressure 134 mm[Hg] [facility] Encounters Encounter Date Encounter Type Care Provider Facility Start: 04-29-2025 End: 04-29-2025 Sandy Brooke MD Work Phone: [facility] Start: 04-29-2025 End: 04-29-2025 Sandy Brooke MD Work Phone: [facility] Start: 04-29-2025 End: 04-29-2025 Office outpatient visit 25 minutes Mounika Brooke MD Work Phone: [facility] Comment on above: Grief (Primary Dx); Anxiousness; Neck pain; Type 2 diabetes mellitus with hyperglycemia, with long-term current use of insulin (HCC); Essential (primary) hypertension ; Morbid obesity ([facility]-HCC); BMI 36.0-36.9,adult Start: 04-29-2025 End: 04-29-2025 ambulatory MOUNIKA BROOKE Not Available Start: 03-24-2025 End: 03-24-2025 Telephone encounter Mounika Brooke MD Work Phone: [facility] Comment on above: Care Coordination Start: [...] hypertension ; Morbid obesity (CMS-HCC); BMI 38.0-38.9,adult Start: 03-13-2025 End: 03-13-2025 ambulatory MOUNIKA BROOKE Not Available Start: 03-05-2025 End: 03-07-2025 Evaluation and management of inpatient Jigna Suarez Facility:[facility] Start: 03-05-2025 Emergency department patient visit Maria Luisa Steiner Facility:[facility] Start: 02-05-2025 End: 02-05-2025 Telephone encounter Aggie [...] 36.0-36.9,adult Start: 01-22-2025 End: 01-22-2025 Refill Brittani GONZALEZ Comment on above: Anxiousness (Primary Dx) Start: 12-26-2024 End: 12-26-2024 ambulatory Maria Luisa Steiner Facility:[facility] Start: 12-26-2024 End: 12-26-2024 Office outpatient visit 15 minutes Mounika Brooke MD Work Phone: [facility] Comment on above: Muscle cramps (Prima ry Dx); Varicose veins of both lower extremities, unspecified whether complicated; Type 2 diabetes mellitus with hyperglycemia, with long-term current use of insulin (CMS/HCC); Essential (primary) hypertension (CMS/HCC) Start: 12-25-2024 End: 12-25-2024 Office outpatient visit 25 minutes Kayla Sweeney MD Work Phone: [facility] Comment on above: Type 2 diabetes perla itus with hyperglycemia, with long-term current use of insulin (CMS/HCC) (Primary Dx); Insulin long-term use (CMS/HCC); Vitamin D deficiency; Encounter for dietary consultation; Hyperlipemia, mixed (CMS/HCC); Primary hypertension ([facility]/HCC) Start: 12-24-2024 End: 12-24-2024 Bamboo flowsheet Kayla Sweeney MD Work Phone: [facility] Start: 12-24-2024 End: 12-24-2024 Bamboo flowskavon Sweeney MD Work Phone: [facility] Start: 12-22-2024 End: 12-22-2024 Emergency department patient visit Dwight Shaffer Facility:[facility] Start: 12-20-2024 End: 12-21-2024 ambulatory Toni Gutierrez Facility:[facility] Start: 12-20-2024 Emergency department patient visit Nicole Myers Facility:[facility] Start: 12-20-2024 End: 12-21-2024 Observation Toni Gutierrez [facility] Start: 12-19-2024 End: 12-19-2024 Emergency department patient visit Corky Luo Facility:[facility] Start: 12-18-2024 End: 12-18-2024 Bamboo flowsheet Mone [...] encounter Mounika Brooke MD Work Phone: [facility] Comment on above: Care Coordination Start: 12-04-2024 End: 12-04-2024 ambulatory MOUNIKA BROOKE Not Available Start: 12-04-2024 End: 12-04-2024 Office outpatient visit 25 minutes Mounika Brooke MD Work Phone: [facility] Comment on above: Chronic hypoxemic re spiratory [...] 09-04-2024 End: 09-04-2024 ambulatory Taz THOMAS Facility:[facility] Start: 09-04-2024 End: 09-04-2024 Patient encounter procedure Taz THOMAS [facility] Start: 09-04-2024 End: 09-04-2024 Office outpatient visit 25 minutes Kayla Sweeney MD Work Phone: [facility] Comment on above: Type 2 diabetes perla itus with hyperglycemia, with long-term current use of insulin (CMS/HCC) (Primary Dx); Insulin long-term use (CMS/HCC); Vitamin D deficiency; Encounter for dietary consultation; Hyperlipemia, mixed (CMS/HCC); Primary hypertension (CMS/HCC) Start: 09-04-2024 End: 09-04-2024 Bamboo flowskavon Sweeney MD Work Phone: [facility] Start: 09-04-2024 End: 09-04-2024 Bamboo jaxon Sweeney MD Work Phone: [facility] Start: 09-04-2024 End: 09-04-2024 ambulatory AHMAD F GERALDINE Not Available Start: 08-06-2024 End: 08-06-2024 Telephone encounter Mounika Brooke MD Work Phone: [facility] Comment on above: Referral Start: 07-22-2024 End: 07-22-2024 ambulatory PERLITA MEEKS Not Available Start: 07-22-2024 End: 07-22-2024 Follow-up encounter Perlita Meeks MD Work Phone: [facility] Comment on above: Follow-up Start: 07-22-2024 End: 07-22-2024 Bamboo flowskavon Meeks MD Work Phone: [facility] Start: 07-22-2024 End: 07-22-2024 Bamboo flowsheet Perlita Meeks MD Work Phone: [facility] Start: 07-15-2024 End: 07-15-2024 ambulatory AHMAD F GERALDINE Not Available Start: 07-15-2024 End: 07-15-2024 Office outpatient visit 25 minutes Kayla Sweeney MD Work Phone: [facility] END[facility] Comment on above: Type 2 [...] NE FM Start: 07-11-2024 End: 07-11-2024 Bamboo flowskavon Brooke [...] [facility] Start: 07-03-2024 End: 07-03-2024 Bamboo jaxon Brooke MD Work Phone: [facility] Start: 07-03-2024 End: 07-03-2024 Bamboo jaxon Brooke [...] Start: 06-24-2024 End: 06-24-2024 Telephone encounter Jennifer Short PA Work Phone: [facility] Start: 06-23-2024 End: 06-23-2024 Emergency department patient visit Alejandro Silva [facility] Start: 06-21-2024 End: 06-21-2024 ambulatory Jennifer SHORT Facility:[facility] Start: 06-21-2024 End: 06-21-2024 Patient encounter procedure [...] hyperglycemia, with long-term current use of insulin ([facility]) (Primary Dx); Chronic cough; Chest wall [...] complication associated with type 2 diabetes mellitus (CMS/HCC); TC (obstructive sleep apnea); Restless leg syndrome; Acute on chronic respiratory failure with hypoxia and hypercapnia (CMS/HCC); Obesity hypoventilation syndrome (CMS/HCC); Hypertension, unspecified type (CMS/HCC); Varicose veins of both lower extremities, unspecified whether complicated; Gastroesophageal reflux disease, unspecified whether esophagitis present; 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 (CMS/HCC); Mixed hyperlipidemia (CMS/HCC); Long-term insulin use ([facility]/HCC) Start: 04-29-2024 End: 04-30-2024 Telephone encounter Mounika Brooke MD Work Phone: [facility] Comment on above: Care Coordination Start: 04-23-2024 End: 04-23-2024 Bamboo flowsheet Perlita Meesk MD Work Phone: [facility] Start: 04-23-2024 End: 04-23-2024 Bamboo flowsheet Perlita Meeks MD Work Phone: [facility] Start: 04-23-2024 End: 04-23-2024 Clinical Support Perlita Meeks MD Work Phone: [facility] Comment on above: Retinal Injection Start: 04-15-2024 End: 04-15-2024 Office outpatient new 45 minutes Perlita Meeks MD Work Phone: [facility] Comment on above: 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 Start: 03-11-2024 End: 03-11-2024 Patient encounter procedure Taz THOMAS [facility] Start: 03-06-2024 End: 03-06-2024 ambulatory Sukh R Marissace Facility:[facility] Start: 03-06-2024 End: 03-06-2024 Patient encounter procedure Sukh R Dolce [facility] Start: 02-28-2024 End: 02-28-2024 ambulatory Sukh R Dolce Facility:[facility] Start: 02-28-2024 End: 02-28-2024 Patient encounter procedure Sukh R Dolce [facility] Start: 02-28-2024 End: 02-28-2024 ambulatory Taz THOMAS Facility:[facility] Start: 02-28-2024 End: 02-28-2024 Patient encounter procedure Taz THOMAS [facility] Start: 02-15-2024 End: 02-15-2024 ambulatory Shannon J Galea Facility:[facility] Start: 02-15-2024 End: 02-15-2024 Patient encounter procedure Shannon J Galea [facility] Start: 02-14-2024 End: 02-14-2024 ambulatory Taz THOMAS Facility:[facility] Start: 02-14-2024 End: 02-14-2024 Patient encounter procedure Taz THOMAS [facility] Start: 02-09-2024 End: 02-09-2024 ambulatory Gisselle X Orzech Facility:[facility] Start: 02-09-2024 End: 02-09-2024 Patient encounter procedure Gisselle X Orzech [facility] Start: 02-05-2024 End: 02-05-2024 ambulatory Tza THOMAS Facility:[facility] Start: 02-05-2024 End: 02-05-2024 Patient encounter procedure Taz THOMAS [facility] Start: 01-31-2024 End: 01-31-2024 ambulatory Sukh Harrington Facility:[facility] Start: 01-31-2024 End: 01-31-2024 Patient encounter procedure Sukh R Dolce [facility] Start: 01-23-2024 End: 01-23-2024 ambulatory Smooth Harrington Facility:[facility] Start: 01-23-2024 End: 01-23-2024 Patient encounter procedure Smooth Harrington [facility] Start: 01-17-2024 End: 01-18-2024 Pre-admission assessment Smooth Elizondo Juany [facility] Start: 01-15-2024 End: 01-15-2024 Emergency department patient visit Nicole Myers [facility] Start: 01-12-2024 End: 01-12-2024 ambulatory LIBERTY PATRICK Facility:[facility] Start: 01-12-2024 End: 01-12-2024 Patient encounter procedure LIBERTY PATRICK [facility] Start: 01-02-2024 End: 01-02-2024 ambulatory Smooth Harrington Facility:[facility] Start: 01-02-2024 End: 01-02-2024 Patient encounter procedure Smooth Harrington [facility] Start: 12-26-2023 End: 12-26-2023 ambulatory Smooth Harrington Facility:[facility] Start: 12-26-2023 End: 12-26-2023 Patient encounter procedure Smooth Harrington [facility] Start: 12-19-2023 End: 12-19-2023 ambulatory Smooth Harrington Facility:[facility] Start: 12-19-2023 End: 12-19-2023 Patient encounter procedure Smooth Harrington [facility] Start: 12-15-2023 End: 12-15-2023 ambulatory Taz THOMAS Facility:[facility] Start: 12-15-2023 End: 12-15-2023 Patient encounter procedure Taz THOMAS [facility] Start: 12-12-2023 End: 12-12-2023 ambulatory Smooth Harrington Facility:[facility] Start: 12-12-2023 End: 12-12-2023 Patient encounter procedure Smooth Harrington [facility] Start: 11-23-2023 Patient encounter procedure Esau Truong PAINTINGS RESTORER.BATHING SUIT MAKER Work Phone: [facility] Start: 11-23-2023 Progress Note Esau Truong PAINTINGS RESTORER.BATHING SUIT MAKER Work Phone: [facility] Start: 11-20-2023 End: 11-20-2023 Patient encounter procedure Taz THOMAS [facility] Start: 11-20-2023 Progress Note Alvaro Herrera Work Phone: [place] [employer] Puller Start: 11-20-2023 End: 11-20-2023 ambulatory Taz THOMAS Facility:[facility] Start: 11-12-2023 Non-patient / Non-visit MD Jermaine Brooke Work Phone: [facility] Physician [facility] Nephrology Work Phone: Start: 11-11-2023 Non-patient / Non-visit MD Jermaine Brooke Work Phone: [facility] Physician [facility] Out[facility] Work Phone: Start: 11-11-2023 End: 11-17-2023 Evaluation and management of inpatient MD Mounika Brooke Work Phone: [facility] Progressive Work Phone: Start: 11-11-2023 End: 11-11-2023 Emergency department patient visit Alejandro Linn Shira [facility] Start: 11-01-2023 End: 11-01-2023 ambulatory Taz THOMAS Facility:[facility] Start: 11-01-2023 End: 11-01-2023 Patient encounter procedure Taz THOMAS [facility] Start: 10-31-2023 Telephone encounter Mounika christianson MD Work Phone: NOC Comment on above: Follow Up Phone Call (Post Discharge F/U - attempt made. No answer.) Start: 10-30-2023 End: 10-30-2023 Emergency department patient visit Anniesandhya Beck [facility] Start: 10-23-2023 End: 10-28-2023 Evaluation and management of inpatient PIPPA DONAHUE Facility:[facility] Start: 10-18-2023 End: 10-18-2023 ambulatory Taz THOMAS Facility:[facility] Start: 10-18-2023 End: 10-18-2023 Patient encounter procedure Taz THOMAS [facility] Start: 10-15-2023 End: 10-15-2023 Emergency department patient visit Mone Martinez [facility] Start: 10-13-2023 End: 10-13-2023 ambulatory MD Mounika Brooke Work Phone: [facility] Work Phone: Start: 10-13-2023 End: 10-13-2023 Patient encounter procedure MD Mounika Brooke Work Phone: [facility] [place] Work Phone: Start: 10-09-2023 Non-patient / Non-visit MD Jermaine Brooke Work Phone: [facility] Work Phone: Start: 10-08-2023 Non-patient / Non-visit MD Jermaine Brooke Work Phone: [facility] Work Phone: Start: 10-07-2023 Non-patient / Non-visit MD Jermaine Brooke Work Phone: [facility] Med Out[facility] Work Phone: Start: 10-06-2023 End: 10-12-2023 Evaluation and management of inpatient MD Mounika Brooke Work Phone: [facility] Med Surg Work Phone: Start: 10-05-2023 End: 10-05-2023 ambulatory Gisselle X Orzech Facility:[facility] Start: 10-05-2023 End: 10-05-2023 Patient encounter procedure Gisselle X Orzech [facility] Start: 10-04-2023 End: 10-04-2023 ambulatory Sukh R Dolce Facility:[facility] Start: 10-04-2023 End: 10-04-2023 Patient encounter procedure Sukh R Dolce [facility] Start: 10-03-2023 ambulatory Smooth Dolbert Facility:[facility] Start: 10-02-2023 End: 12-31-2023 ambulatory Nicole Thompson Facility:[facility] Start: 10-02-2023 End: 12-31-2023 Recurring Nicole Thompson [facility] Start: 09-26-2023 End: 09-26-2023 ambulatory Gisselle X Orzech Facility:[facility] Start: 09-25-2023 Bamboo flowskavon christiansen MD Work Phone: [facility] Start: 09-25-2023 Sandy christiansen MD Work Phone: [facility] Start: 09-24-2023 End: 09-24-2023 Emergency department patient visit Jose Miguel Phan [address] [place] [address] Start: 09-21-2023 Chart abstracting Mounika christianson MD Work Phone: [facility] Start: 09-18-2023 End: 09-12-2023 Pre-admission assessment Smooth Harrington [facility] Start: 09-17-2023 End: 09-17-2023 Emergency department patient visit [facility] Linn fili [facility] Start: 09-12-2023 End: 09-16-2023 Evaluation and management of inpatient XXXX [facility] Cardio Facility:[facility] Start: 09-05-2023 End: 09-05-2023 ambulatory Smooth Elizondo Juany Facility:[facility] Start: 09-05-2023 End: 09-05-2023 Patient encounter procedure Smooth Elizondo Marissabert [facility] Start: 08-30-2023 End: 08-30-2023 Patient encounter procedure Sukh Harrington [facility] Start: 08-24-2023 End: 08-24-2023 Patient encounter procedure Migue STROUD [facility] Start: 08-16-2023 End: 08-16-2023 Patient encounter procedure Sukh Harrington [facility] Start: 08-06-2023 End: 08-06-2023 [facility] Start: 08-02-2023 End: 08-02-2023 Patient encounter procedure Sukh Harrington [facility] Start: 07-19-2023 End: 07-19-2023 Patient encounter procedure Sukh Harrington [facility] Start: 06-28-2023 End: 06-28-2023 Patient encounter procedure Sukh Harrington [facility] Start: 06-26-2023 End: 06-26-2023 Patient encounter procedure Migue MARLI [facility] Start: 06-19-2023 End: 06-21-2023 Evaluation and management of inpatient DO Reid Brooke Work Phone: [facility] Surg Work Phone: Start: 06-11-2023 End: 06-15-2023 Evaluation and management of inpatient Cindy RICARDO [facility] Start: 06-07-2023 End: 06-07-2023 Patient encounter procedure Sukh Harrington [facility] Start: 05-24-2023 End: 05-24-2023 Off-Site Migue STROUD [facility] Start: 05-22-2023 End: 05-22-2023 Lab Drop off Migue STROUD [facility] Start: 05-22-2023 End: 05-22-2023 Patient encounter procedure Miguecora STROUD [facility] Start: 05-08-2023 End: 05-08-2023 Patient encounter procedure Bashar X [place] [facility] Start: 05-02-2023 End: 05-03-2023 Pre-admission assessment Sukh Harrington [facility] Start: 05-01-2023 End: 05-01-2023 Patient encounter procedure Sukh Harrington [facility] Start: 04-26-2023 End: 04-26-2023 Patient encounter procedure Sukh Harrington [facility] Start: 04-25-2023 End: 04-25-2023 Patient encounter procedure Smooth Harrington [facility] Start: 04-19-2023 End: 04-19-2023 Patient encounter procedure Sukh Harrington [facility] Start: 04-03-2023 End: 04-03-2023 Patient encounter procedure Migue STROUD [facility] Start: 12-26-2022 End: 12-26-2022 Patient encounter procedure Migue MARLI [facility] Start: 12-02-2022 End: 12-02-2022 Patient encounter procedure Miguecora STROUD [facility] Start: 09-21-2022 End: 10-18-2022 Off-Site Migue MARLI [facility] Start: 09-13-2022 End: 09-13-2022 Patient encounter procedure Migue KLINEWOOD [facility] Start: 08-21-2022 End: 09-20-2022 Off-Site Migue MARLI [facility] Start: 08-04-2022 End: 08-04-2022 Emergency department patient visit Mone LugoSue Juan [facility] Start: 03-29-2022 End: 03-29-2022 Patient encounter procedure Migue STROUD [facility] Start: 03-21-2022 End: 04-20-2022 Off-Site Migue STROUD [facility] Start: 03-08-2022 End: 03-09-2022 Emergency department patient visit Jose Miguel WillSue Phan [facility] Start: 01-11-2022 End: 01-11-2022 Patient encounter procedure Migue STROUD [facility] Start: 12-28-2021 End: 12-28-2021 Off-Site Migue STROUD [facility] Procedures Date Procedure Procedure Detail Performing Clinician [...] above: right Start: 05-31-2017 Incision AND drainage Enrique STROUD Comment on above: Left foot Start: [...] of foot Acquired absence of left foot (CMS/[facility]) Mounika Brooke MD Work Phone: Umbilical Hernia Repair [facility] STROUD Plan of Treatment Date Care Activity Detail Author Start: 03-26-2026 Urine screening for protein Diabetes: Urine Protein Screening [facility] Start: 03-13-2026 Urine screening for protein Diabetes: Urine Protein Screening [facility] Start: 07-22-2025 Glaucoma screening Diabetes: R etinopathy Screening [facility] Start: 05-01-2025 End: 05-01-2025 Patient encounter procedure 05/01/2025 8:15 AM EDT Office Visit [facility] [address] [place] [address] Perlita Meeks MD [address] [place] [address] [facility] Start: 04-29-2025 Medicare Annual Well ness (AWV) Medicare Annual Wellness (AWV) [facility] Start: 04-29-2025 End: 04-29-2025 Patient encounter procedure 04/29/2025 11:00 AM EDT Office Visit [facility] [address] [place] [phone] Mounika Brooke MD [address] [place] [address] Arrived [facility] Comment on above: Arrived Start: 04-23-2025 Glaucoma screening Diabetes: R etinopathy Screening [facility] Healthcare Start: 04-21-2025 Influenza vaccination Influenza Vacc ine (#1) [facility] Start: 04-15-2025 Glaucoma screening Diabetes: R etinopathy Screening [facility] Healthcare Start: 03-13-2025 End: 03-13-2025 Patient encounter procedure 03/13/2025 12:20 PM EDT Office Visit [facility] [address] [place] [phone] Mounika Brooke MD [address] [place] [address] Arrived [facility] Comment on above: Arrived Start: 03-11-2025 Urine screening for protein Diabetes: Urine Protein Screening [facility] Healthcare Start: 02-05-2025 End: 02-05-2025 Patient encounter procedure 02/05/2025 12:20 PM EDT Office Visit [facility] [address] [place] [phone] Mounika Brooke MD [address] [place] [address] [facility] Start: 12-31-2024 End: 12-31-2024 Patient encounter procedure 12/31/2024 2:20 PM EDT Office Visit [facility] [address] [place] [address] Kayla Sweeney MD [address] [place] [address] [facility] Start: 12-26-2024 End: 12-26-2024 Patient encounter procedure 12/26/2024 3:20 PM EDT Office Visit [facility] [address] [place] [phone] Mounika Brooke MD [address] [place] [address] [facility] Start: 12-26-2024 End: 12-26-2025 CBC W Auto Differential panel - Blood CBC and differential Lab Routine Muscle cramps Expected: 12/26/2024 (Approximate), Expires: 12/26/2025 [facility] Work Phone: Comment on above: Expected: 12/26/2024 (Approximate), Expires: 12/26/2025 Start: 12-26-2024 End: 12-26-2025 Comprehensive metabolic 2000 panel - Serum or Plasma Comprehensive metabolic panel Lab Routine Muscle cramps Expected: 12/26/2024 (Approximate), Expires: 12/26/2025 [facility] Comment on above: Expected: 12/26/2024 (Approximate), Expires: 12/26/2025 Start: 12-26-2024 End: 12-26-2025 Magnesium [Mass/volume] in Serum or Plasma Magnesium Lab Routine Muscle cramps Expected: 12/26/2024 (Approximate), Expires: 12/26/2025 [facility] Comment on above: Expected: 12/26/2024 (Approximate), Expires: 12/26/2025 Start: 12-04-2024 End: 12-04-2024 Patient encounter procedure 12/04/2024 2:40 PM EDT Office Visit [facility] [address] [place] [phone] Kayla Sweeney MD [address] [place] [address] [facility] Start: 12-03-2024 Hemoglobin A1c measurement Diabetes: Hemoglobin A1C [facility] Start: 11-21-2024 End: 11-21-2024 Patient encounter procedure 11/21/2024 1:30 PM EDT Office Visit [facility] [address] [place] [phone] Perlita Meeks MD [address] [place] [address] [facility] Start: 10-27-2024 Complete blood count Hemoglobin/Martinez tocrit [facility] Start: 10-27-2024 Creatinine measurement Serum Creatin ine [facility] Start: 10-24-2024 Hepatitis B surface antibody level LDL Cholesterol [facility] Start: 09-21-2024 Hemoglobin A1c measurement Diabetes: Hemoglobin A1C [facility] Start: 09-04-2024 End: 09-04-2024 Patient encounter procedure [facility] Comment on above: Type 2 diabetes perla itus with hyperglycemia, with long-term current use of insulin ([facility]) Start: 09-04-2024 End: 09-04-2025 25-hydroxyvitamin D3 [Mass/volume] in Serum or Plasma Vitamin D 25 hydroxy Total Lab Routine Type 2 diabetes mellitus with hyperglycemia, with long-term current use of insulin ([facility]) Expected: 09/04/2024 (Approximate), Expires: 09/04/2025 [facility] Comment on above: Expected: 09/04/2024 (Approximate), Expires: 09/04/2025 Start: 09-04-2024 End: 09-04-2025 C-peptide C-peptide Lab Routine Type 2 diabetes mellitus with hyperglycemia, with long-term current use of insulin ([facility]) Expected: 09/04/2024 (Approximate), Expires: 09/04/2025 [facility] Work Phone: Comment on above: Expected: 09/04/2024 (Approximate), Expires: 09/04/2025 Start: 09-04-2024 End: 09-04-2025 Lipid 1996 panel - Serum or Plasma Lipid panel Lab Routine Type 2 diabetes mellitus with hyperglycemia, with long-term current use of insulin ([facility]) Expected: 09/04/2024 (Approximate), Expires: 09/04/2025 [facility] Comment on above: Expected: 09/04/2024 (Approximate), Expires: 09/04/2025 Start: 09-04-2024 End: 09-04-2025 Microalbumin/Creatinine panel in random Urine Microalbumin / creatinine urine ratio Lab Routine Type 2 diabetes mellitus with hyperglycemia, with long-term current use of insulin ([facility]) Expected: 09/04/2024 (Approximate), Expires: 09/04/2025 [facility] Comment on above: Expected: 09/04/2024 (Approximate), Expires: 09/04/2025 Start: 09-04-2024 End: 09-04-2025 Renal function panel Renal function panel Lab Routine Type 2 diabetes mellitus with hyperglycemia, with long-term current use of insulin ([facility]) Expected: 09/04/2024 (Approximate), Expires: 09/04/2025 [facility] Comment on above: Expected: 09/04/2024 (Approximate), Expires: 09/04/2025 Start: 08-09-2024 Urine screening for protein Diabetes: Urine Protein Screening [facility] Start: 07-22-2024 End: 07-22-2024 Clinical Support 07/22/2024 2:15 PM EST Clinical Support [facility] [address] [place] [phone] Perlita Meeks MD [address] [place] [address] [facility] Start: 07-15-2024 End: 07-15-2024 Chart abstracting 07/15/2024 Abstract [facility] [address] [place] [address] Kayla Sweeney MD [address] [place] [address] [facility] Start: 07-15-2024 End: 07-15-2024 Patient encounter procedure 07/15/2024 1:40 PM EST Office Visit [facility] [address] [place] [address] Kayla Sweeney MD [address] [place] [address] [facility] Start: 07-11-2024 End: 07-11-2024 Clinical Support [facility] Comment on above: Arrived Start: 06-27-2024 End: 06-27-2024 Clinical Support 06/27/2024 2:15 PM EST Clinical Support [facility] [address] [place] [phone] Perlita Meeks MD [address] [place] [address] [facility] Start: 06-21-2024 End: 06-21-2025 XR Chest 2 Views XR chest 2 views Imaging Routine Chronic cough Chest wall pain Expected: 06/21/2024, Expires: 06/21/2025 [facility] Healthcare Work Phone: Comment on above: Expected: 06/21/2024 , Expires: 06/21/2025 Start: 06-21-2024 End: 06-21-2024 Patient encounter procedure 06/21/2024 1:30 PM EDT Office Visit [facility] [address] [place] [phone] Jennifer Short PA [address] [place] [address] Arrived [facility] Comment on above: Arrived Start: 05-23-2024 End: 05-23-2024 Clinical Support 05/23/2024 10:15 AM EDT Clinical Support [facility] [address] [address] [place] [id number] Perlita Meeks MD [address] [place], [place] [id number] [facility] Start: 05-22-2024 End: 05-22-2024 Clinical Support 05/22/2024 2:00 PM EDT Clinical Support [facility] [address] [place] [phone] Perlita Meeks MD [address] [place] [address] Arrived [facility] Comment on above: Arrived Start: 04-29-2024 End: 04-29-2024 Patient encounter procedure 04/29/2024 2:00 PM EDT Office Visit [facility] [address] [place] [id number] Mounika Brooke MD [address] [place] [address] [facility] Comment on above: Arrived Start: 04-23-2024 End: 04-23-2024 Clinical Support 04/23/2024 10:45 AM EDT Clinical Support [facility] [address] [place] [phone] Perlita Meeks MD [address] [place] [address] Arrived [facility] Comment on above: Arrived Start: 04-21-2024 Influenza vaccination Influenza Vacc ine (#1) [facility] Start: 04-15-2024 End: 04-15-2024 Patient encounter procedure 04/15/2024 2:30 PM EDT Office Visit [facility] [address] [place] [phone] Perlita Meeks MD [address] [place] [address] Arrived [facility] Comment on above: Arrived Start: 01-24-2024 Hemoglobin A1c measurement [facility] Start: 11-17-2023 [facility] Start: 11-11-2023 Hospital admission 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 Start: 10-07-2023 [facility] Start: 10-06-2023 Plain chest X-ray XR chest 1V portab le [facility] Start: 10-06-2023 XR Chest Single view [facility] Start: 10-06-2023 Bacteria identified in Blood by Culture [facility] Start: 09-25-2023 End: 09-25-2023 Patient encounter procedure [facility] Comment on above: Arrived Start: 08-21-2023 Behavioral Health Screening Behavioral Health Screening [facility] Start: 08-21-2023 [facility] Start: 06-23-2023 Blood chemistry [facility] Start: 06-23-2023 [facility] Start: 06-22-2023 Blood chemistry [facility] Start: 06-22-2023 [facility] Start: 06-21-2023 Blood chemistry [facility] Start: 06-21-2023 End: 06-21-2023 [facility] Start: 06-20-2023 Consultation [facility] Start: 06-20-2023 Blood chemistry [facility] Start: 06-20-2023 [facility] Start: 06-19-2023 Administration of prophylactic treatment [facility] Start: 06-19-2023 Blood chemistry [facility] Start: 06-19-2023 [facility] Start: 06-19-2023 Hospital admission [facility] Start: 06-19-2023 [facility] Start: 06-18-2023 Plain chest X-ray XR chest 1V portab le [facility] Start: 06-18-2023 XR Chest Single view [facility] Start: 04-21-2023 Covid-19 Vaccine ( season) Covid-19 Vaccine ( season) [facility] Start: 08-07-2019 Pneumococcal vaccination Pneum ococcal Vaccine (2 of 2 - PCV) [facility] Start: 08-07-2019 Pneumococcal Vaccine : 65+ Years (2 of 2 - PCV) Pneumococcal Vaccine: 65+ Years (2 of 2 - PCV) [facility] Start: 2019 RSV Vaccine (1 - 1-d ose 60+ series) RSV Vaccine (1 - 1-dose 60+ series) [facility] Start: 2014 Prostate specific antigen measurement Prostate Cancer Screening Discussion [facility] Start: 2009 Shingrix Vaccine (1 of 2) Shingrix Vaccine (1 of 2) [facility] Start: 01-08-2004 Screening for malign ant neoplasm of colon [facility] Start: 1978 Urine microalbumin profile DTaP,Tdap,Td Vaccine (1 - Tdap) [facility] Start: 1977 Annual PCP Team Dryerman/Woman loida Disease Visit Annual PCP Team Chronic Disease Visit [facility] Start: 1977 BP Controlled (<130/80) BP Con trolled (<130/80) [facility] Start: 1977 Hepatitis C screening Hepatitis C Sc haily [facility] Start: 1977 HIV screening HIV Screening [facility] Start: 1969 Diabetic foot examination Diabetic Foot Exam [facility] Start: 1969 Glaucoma screening [facility] Start: 1969 Hepatitis B screening Urine Albumin:Creatinine Ratio [facility] Start: 1959 Hemoglobin A1c measurement Diabetes: Hemoglobin A1C [facility] Start: 1959 Medicare Annual Well ness (AWV) Medicare Annual Wellness (AWV) [facility] Start: 1959 Screening for malign ant neoplasm of colon [facility] Anion gap measurement [facility] Basophils [#/volume] in Blood by Automated count [facility] Basophils/100 leukoc ytes in Blood by Automated count [facility] Eosinophils [#/volum e] in Blood [facility] Eosinophils/100 leukocytes in Blood by Automated count [facility] Erythrocyte distribu tion width [Ratio] by Automated count [facility] Erythrocytes [#/volu me] in Blood [facility] Hematocrit [Volume Fraction] of Blood [facility] Hemoglobin [Mass/vol ume] in Blood [facility] Leukocytes [#/volume ] corrected for nucleated erythrocytes in Blood by Automated coun [facility] Leukocytes [#/volume ] in Blood [facility] Lymphocytes [#/volum e] in Blood by Automated count [facility] Lymphocytes/100 leukocytes in Blood by Automated count [facility] MCH [Entitic mass] b y Automated count [facility] MCHC [Mass/volume] b y Automated count [facility] MCV [Entitic volume] by Automated count [facility] Monocytes [#/volume] in Blood by Automated count [facility] Monocytes/100 leukoc ytes in Blood by Automated count [facility] Neutrophils [#/volum e] in Blood by Automated count [facility] Neutrophils/100 leukocytes in Blood by Automated count [facility] Nucleated erythrocyt es [Presence] in Blood by Automated count [facility] Patient Education [facility] Work Phone: Patient referral [facility] Work Phone: Platelet mean volume [Entitic volume] in Blood by Automated count [facility] Plate[facility] Immunization Date Immunization Notes Care Provider Fa cility 12-04-2024 Pneumococcal Conjuga te PCV 20 Mounika Brooke MD Work Phone: [facility] 12-04-2024 Seasonal, trivalent, recombinant, injectable influenza vaccine, preservative free Mounika Brooke MD Work Phone: [facility] 12-04-2024 influenza virus vacc ine, unspecified formulation Mounika Brooke MD Work Phone: [facility] 11-24-2023 tuberculin skin test ; purified protein derivative solution, intradermal Mounika Brooke MD Work Phone: [facility] 11-17-2023 tuberculin skin test ; purified protein derivative solution, intradermal Mounika Brooke MD Work Phone: [facility] 05-22-2023 influenza, injectabl e, quadrivalent, preservative free [place] [facility] 05-22-2023 influenza virus vacc ine, unspecified formulation Perlita Meeks MD Work Phone: [facility] 06-17-2022 COVID-19, mRNA, LNP- S, bivalent booster, PF, 30 mcg/0.3 mL dose Mone Martinez [facility] 06-17-2022 influenza, injectabl e, quadrivalent, preservative free Mone Martinez [facility] 06-17-2022 SARS-CoV-2, Unspecified Zahra Brooke MD Work Phone: [facility] 07-27-2021 COVID-19, mRNA, LNP- S, PF, 100 mcg or 50 mcg dose [place] [facility] 07-20-2021 influenza, injectabl e, quadrivalent, preservative free [place] [facility] 12-03-2020 SARS-CoV-2 (COVID-19 ) mRNA-1273 vaccine [place] [facility] 11-02-2020 SARS-CoV-2 (COVID-19 ) mRNA-1273 vaccine [place] [facility] 06-04-2019 influenza, injectabl e, quadrivalent, contains preservative [place] [facility] 08-07-2018 influenza virus vacc ine, unspecified formulation Jose Miguel Phan [facility] 08-07-2018 influenza, injectabl e, quadrivalent, contains preservative Mounika Brooke MD Work Phone: [facility] 08-07-2018 pneumococcal polysaccharide vaccine, 23 valent [place] [facility] 11-24-2015 pneumococcal polysaccharide vaccine, 23 valent Jose Miguel Phan [facility] Payers Date Payer Category Payer Self-pay [id number] 2024 Medicare (Managed Care) 1.2. [id number] 2024 Private Health Insurance [id number] 2023 Medicare [id number] 2023 Unknown [employer] [id number] 2023-Present [address] [place] [id number] [id number] 2023 Medicare [id number] 2023 Medicaid [id number] 2023 Medicaid [id number] 2022 Medicare [id number]. [id number] .[id number] 1959 Unknown [id number] 2.16.840.1.140713.3.579.2.7 1959 Unknown [id number] 2.16.840.1.900192.3.579.2.7 1959 Unknown [id number] 2.16.840.1.665650.3.579.2.7 1959 Unknown [id number] 2.16.840.1.687514.3.579.2.7 1959 Unknown [id number] 2.16.840.1.327095.3.579.2.7 1959 Unknown [id number] 2.16.840.1.939268.3.579.2.7 1959 Unknown [id number] 2.16.840.1.938478.3.579.2.7 1959 Unknown [id number] 2.16.840.1.484854.3.579.2.7 1959 Unknown [id number] 2.16.840.1.591289.3.579.2.7 1959 Unknown [id number] 2.16.840.1.956659.3.579.2.7 1959 Unknown [id number] 2.16.840.1.282836.3.579.2.7 1959 Unknown [id number] 2.16.840.1.771954.3.579.2.7 1959 Unknown [id number] 2.16.840.1.604799.3.579.2.7 1959 Unknown [id number] 2.16.840.1.577036.3.579.2.7 1959 Unknown [id number] 2.16.840.1.314347.3.579.2.7 1959 Unknown [id number] 2.16.840.1.409116.3.579.2.7 1959 Unknown [id number] 2.16.840.1.292690.3.579.2.7 1959 Unknown [id number] 2.16.840.1.586934.3.579.2.7 1959 Unknown [id number] 2.16.840.1.759328.3.579.2.7 1959 Unknown [id number] 2.16.840.1.433890.3.579.2.7 1959 Unknown [id number] 2.16.840.1.714044.3.579.2.7 1959 Unknown [id number] 2.16.840.1.662083.3.579.2.7 1959 Unknown [id number] 2.16.840.1.251460.3.579.2.7 1959 Unknown [id number] 2.16.840.1.810268.3.579.2.7 1959 Unknown [id number] 2.16.840.1.981475.3.579.2.7 1959 Unknown [id number] 2.16.840.1.636888.3.579.2.7 1959 Unknown [id number] 2.16.840.1.108077.3.579.2.7 1959 Unknown [id number] 2.16.840.1.823199.3.579.2.7 1959 Unknown [id number] 2.16.840.1.762216.3.579.2.7 1959 Unknown [id number] 2.16.840.1.809726.3.579.2.7 1959 Unknown [id number] 2.16.840.1.426734.3.579.2.7 1959 Unknown [id number] 2.16.840.1.929688.3.579.2.7 1959 Unknown [id number] 2.16.840.1.533113.3.579.2.7 1959 Unknown [id number] 2.16.840.1.985698.3.579.2.7 1959 Unknown [id number] 2.16.840.1.630336.3.579.2.7 1959 Unknown [id number] 2.16.840.1.938008.3.579.2.7 1959 Unknown [id number] 2.16.840.1.357932.3.579.2.7 1959 Unknown [id number] 2.16.840.1.257833.3.579.2.7 1959 Unknown [id number] 2.16.840.1.522379.3.579.2.7 1959 Unknown [id number] 2.16.840.1.807698.3.579.2.7 1959 Unknown [id number] 2.16.840.1.925214.3.579.2.7 1959 Unknown [id number] 2.16.840.1.144136.3.579.2.7 1959 Unknown [id number] 2.16.840.1.709390.3.579.2.7 1959 Unknown [id number] 2.16.840.1.131378.3.579.2.7 27 1959 Unknown [id number] 2.16.840.1.809735.3.579.2.7 27 1959 Unknown [id number] 2.16.840.1.044543.3.579.2.7 27 1959 Unknown [id number] 2.16.840.1.766412.3.579.2.7 27 1959 Unknown [id number] 2.16.840.1.729334.3.579.2.7 27 1959 Unknown [id number] 2.16.840.1.206105.3.579.2.7 27 1959 Unknown [id number] 2.16.840.1.681088.3.579.2.7 27 1959 Unknown [id number] 2.16.840.1.494287.3.579.2.7 27 1959 Unknown [id number] 2.16.840.1.448985.3.579.2.7 27 1959 Unknown [id number] 2.16.840.1.371315.3.579.2.7 27 1959 Unknown [id number] 2.16.840.1.592451.3.579.2.7 27 1959 Unknown [id number] 2.16.840.1.913464.3.579.2.1 259 1959 Unknown [id number] 2.16.840.1.092378.3.579.2.1 259 1959 Unknown [id number] 2.16.840.1.760407.3.579.2.1 259 1959 Unknown [id number] 2.16.840.1.914708.3.579.2.1 259 1959 Unknown [id number] 2.16.840.1.116848.3.579.2.1 259 1959 Unknown [id number] 2.16.840.1.221150.3.579.2.1 259 1959 Unknown [id number] 2.16.840.1.797297.3.579.2.1 259 1959 Unknown [id number] 2.16.840.1.722239.3.579.2.1 259 1959 Unknown [id number] 2.16.840.1.398000.3.579.2.1 259 1959 Unknown [id number] 2.16.840.1.612314.3.579.2.1 259 1959 Unknown [id number] 2.16.840.1.846255.3.579.2.1 259 1959 Unknown [id number] 2.16.840.1.650954.3.579.2.1 259 1959 Unknown [id number] 2.16.840.1.091794.3.579.2.1 259 Medicare Medicare [id number] Unknown [id number] 2.16.840.1.304847.3.579.2.5 31 Social History Date Type Detail Facility Start: 12-28-2021 End: 06-27-2023 Tobacco smoking status Never smoked tobacco (finding) [facility] Tobacco smoking status Never [facility] Start: 09-06-2023 End: 04-11-2025 Sex Assigned At Male [facility] Start: 1960 Sex Assigned At Male [facility] Start: 06-27-2023 Tobacco use and exposure Smoke less tobacco non-user [facility] Start: 09-06-2023 End: 04-29-2025 Alcohol intake Lifetime non-drinker (finding) [facility] Start: 09-06-2023 End: 04-11-2025 History of Social function [facility] Start: 04-02-2023 Alcohol Comment caffeine 1-2 c ups per day [facility] Start: 1960 Sex Assigned At Not on file [facility] Start: 10-24-2023 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 No [facility] Medical Equipment Procedure Code Equipment Code Equipment Origin al Text Equipment Identifier Dates Glucometer test strips, See Instructions, 100 strip(s), 11, Test TID DX E11.40 on insulin, [facility] #[id number], Supply, 182, cm, 10/01/21 10:14:00 EST, Height/Length Dosing, 131.2, kg, 10/01/21 10:14:00 EST, Weight Dosing Start: 10-28-2021 lancets, See Instructions, 100 EA, 11, test blood sugar tid dx E11.9 on insulin, [facility] #[id number], Supply, 182, cm, 10/01/21 10:14:00 EST, Height/Length Dosing, 131.2, kg, 10/01/21 10:14:00 EST, Weight Dosing Start: 10-29-2021 Glucometer test strips, See Instructions, 100 strip(s), 11, Test TID DX E11.40 on insulin, [facility] #[id number], Supply, 182, cm, 10/01/21 10:14:00 EST, Height/Length Dosing, 131.2, kg, 10/01/21 10:14:00 EST, Weight Dosing Start: 10-28-2021 lancets, See Instructions, 100 EA, 11, test blood sugar tid dx E11.9 on insulin, [facility] #[id number], Supply, 182, cm, 10/01/21 10:14:00 EST, Height/Length Dosing, 131.2, kg, 10/01/21 10:14:00 EST, Weight Dosing Start: 10-29-2021 Glucometer test strips, See Instructions, 100 strip(s), 11, Test TID DX E11.40 on insulin, [facility] #[id number], Supply, 182, cm, 10/01/21 10:14:00 EST, Height/Length Dosing, 131.2, kg, 10/01/21 10:14:00 EST, Weight Dosing Start: 10-28-2021 lancets, See Instructions, 100 EA, 11, test blood sugar tid dx E11.9 on insulin, [facility] #[id number], Supply, 182, cm, 10/01/21 10:14:00 EST, Height/Length Dosing, 131.2, kg, 10/01/21 10:14:00 EST, Weight Dosing Start: 10-29-2021 Glucometer test strips, See Instructions, 100 strip(s), 11, Test TID DX E11.40 on insulin, [facility] #[id number], Supply, 182, cm, 10/01/21 10:14:00 EST, Height/Length Dosing, 131.2, kg, 10/01/21 10:14:00 EST, Weight Dosing Start: 10-28-2021 lancets, See Instructions, 100 EA, 11, test blood sugar tid dx E11.9 on insulin, [facility] #[id number], Supply, 182, cm, 10/01/21 10:14:00 EST, Height/Length Dosing, 131.2, kg, 10/01/21 10:14:00 EST, Weight Dosing Start: 10-29-2021 Glucometer test strips, See Instructions, 100 strip(s), 11, Test TID DX E11.40 on insulin, [facility] #[id number], Supply, 182, cm, 10/01/21 10:14:00 EST, Height/Length Dosing, 131.2, kg, 10/01/21 10:14:00 EST, Weight Dosing Start: 10-28-2021 lancets, See Instructions, 100 EA, 11, test blood sugar tid dx E11.9 on insulin, [facility] #[id number], Supply, 182, cm, 10/01/21 10:14:00 EST, Height/Length Dosing, 131.2, kg, 10/01/21 10:14:00 EST, Weight Dosing Start: 10-29-2021 Glucometer test strips, See Instructions, 100 strip(s), 11, Test TID DX E11.40 on insulin, [facility] #[id number], Supply, 182, cm, 10/01/21 10:14:00 EST, Height/Length Dosing, 131.2, kg, 10/01/21 10:14:00 EST, Weight Dosing Start: 10-28-2021 lancets, See Instructions, 100 EA, 11, test blood sugar tid dx E11.9 on insulin, [facility] #[id number], Supply, 182, cm, 10/01/21 10:14:00 EST, Height/Length Dosing, 131.2, kg, 10/01/21 10:14:00 EST, Weight Dosing Start: 10-29-2021 Glucometer test strips, See Instructions, 100 strip(s), 11, Test TID DX E11.40 on insulin, [facility] #[id number], Supply, 182, cm, 09/13/22 13:17:00 EST, Height/Length Dosing, 140.8, kg, 09/13/22 13:17:00 EST, Weight Dosing Start: 09-13-2022 Insulin Pen Need les 31g x 8 mm, See Instructions, 450 EA, 4, Use up to 4 daily, [facility] #[id number], Supply, 182, cm, 09/13/22 13:17:00 EST, Height/Length Dosing, 140.8, kg, 09/13/22 13:17:00 EST, Weight Dosing Start: 09-13-2022 lancets, See Instructions, 100 EA, 11, test blood sugar tid dx E11.9 on insulin, [facility] #[id number], Supply, 182, cm, 10/01/21 10:14:00 EST, Height/Length Dosing, 131.2, kg, 10/01/21 10:14:00 EST, Weight Dosing Start: 10-29-2021 Glucometer test strips, See Instructions, 100 strip(s), 11, Test TID DX E11.40 on insulin, [facility] #[id number], Supply, 182, cm, 09/13/22 13:17:00 EST, Height/Length Dosing, 140.8, kg, 09/13/22 13:17:00 EST, Weight Dosing Start: 09-13-2022 Insulin Pen Need les 31g x 8 mm, See Instructions, 450 EA, 4, Use up to 4 daily, [facility] #[id number], Supply, 182, cm, 09/13/22 13:17:00 EST, Height/Length Dosing, 140.8, kg, 09/13/22 13:17:00 EST, Weight Dosing Start: 09-13-2022 lancets, See Instructions, 100 EA, 11, test blood sugar tid dx E11.9 on insulin, [facility] #[id number], Supply, 182, cm, 10/01/21 10:14:00 EST, Height/Length Dosing, 131.2, kg, 10/01/21 10:14:00 EST, Weight Dosing Start: 10-29-2021 Glucometer test strips, See Instructions, 100 strip(s), 11, Test TID DX E11.40 on insulin, [facility] #[id number], Supply, 182, cm, 09/13/22 13:17:00 EST, Height/Length Dosing, 140.8, kg, 09/13/22 13:17:00 EST, Weight Dosing Start: 09-13-2022 Insulin Pen Need les 31g x 8 mm, See Instructions, 450 EA, 4, Use up to 4 daily, [facility] #[id number], Supply, 182, cm, 09/13/22 13:17:00 EST, Height/Length Dosing, 140.8, kg, 09/13/22 13:17:00 EST, Weight Dosing Start: 09-13-2022 lancets, See Instructions, 100 EA, 11, test blood sugar tid dx E11.9 on insulin, [facility] #[id number], Supply, 182, cm, 10/01/21 10:14:00 EST, Height/Length Dosing, 131.2, kg, 10/01/21 10:14:00 EST, Weight Dosing Start: 10-29-2021 Glucometer test strips, See Instructions, 100 strip(s), 11, Test TID DX E11.40 on insulin, [facility] #[id number], Supply, 182, cm, 09/13/22 13:17:00 EST, Height/Length Dosing, 140.8, kg, 09/13/22 13:17:00 EST, Weight Dosing Start: 11-03-2022 Insulin Pen Need les 31g x 8 mm, See Instructions, 450 EA, 4, Use up to 4 daily, [facility] #[id number], Supply, 182, cm, 09/13/22 13:17:00 EST, Height/Length Dosing, 140.8, kg, 09/13/22 13:17:00 EST, Weight Dosing Start: 09-13-2022 lancets, See Instructions, 100 EA, 11, test blood sugar tid dx E11.9 on insulin, [facility] #[id number], Supply, 182, cm, 09/13/22 13:17:00 EST, Height/Length Dosing, 140.8, kg, 09/13/22 13:17:00 EST, Weight Dosing Start: 11-03-2022 Glucometer test strips, See Instructions, 100 strip(s), 11, Test TID DX E11.40 on insulin, [facility] #[id number], Supply, 182, cm, 09/13/22 13:17:00 EST, Height/Length Dosing, 140.8, kg, 09/13/22 13:17:00 EST, Weight Dosing Start: 11-03-2022 Insulin Pen Need les 31g x 8 mm, See Instructions, 450 EA, 4, Use up to 4 daily, [facility] #[id number], Supply, 182, cm, 09/13/22 13:17:00 EST, Height/Length Dosing, 140.8, kg, 09/13/22 13:17:00 EST, Weight Dosing Start: 09-13-2022 lancets, See Instructions, 100 EA, 11, test blood sugar tid dx E11.9 on insulin, [facility] #[id number], Supply, 182, cm, 09/13/22 13:17:00 EST, Height/Length Dosing, 140.8, kg, 09/13/22 13:17:00 EST, Weight Dosing Start: 11-03-2022 Glucometer test strips, See Instructions, 100 strip(s), 11, Test TID DX E11.40 on insulin, [facility] #[id number], Supply, 182, cm, 09/13/22 13:17:00 EST, Height/Length Dosing, 140.8, kg, 09/13/22 13:17:00 EST, Weight Dosing Start: 11-03-2022 Insulin Pen Need les 31g x 8 mm, See Instructions, 450 EA, 4, Use up to 4 daily, [facility] #[id number], Supply, 182, cm, 09/13/22 13:17:00 EST, Height/Length Dosing, 140.8, kg, 09/13/22 13:17:00 EST, Weight Dosing Start: 09-13-2022 lancets, See Instructions, 100 EA, 11, test blood sugar tid dx E11.9 on insulin, [facility] #[id number], Supply, 182, cm, 09/13/22 13:17:00 EST, Height/Length Dosing, 140.8, kg, 09/13/22 13:17:00 EST, Weight Dosing Start: 11-03-2022 Glucometer test strips, See Instructions, 100 strip(s), 11, Test TID DX E11.40 on insulin, [facility] #[id number], Supply, 182, cm, 09/13/22 13:17:00 EST, Height/Length Dosing, 140.8, kg, 09/13/22 13:17:00 EST, Weight Dosing Start: 11-03-2022 Insulin Pen Need les 31g x 8 mm, See Instructions, 450 EA, 4, Use up to 4 daily, [facility] #[id number], Supply, 182, cm, 09/13/22 13:17:00 EST, Height/Length Dosing, 140.8, kg, 09/13/22 13:17:00 EST, Weight Dosing Start: 09-13-2022 lancets, See Instructions, 100 EA, 11, test blood sugar tid dx E11.9 on insulin, [facility] #[id number], Supply, 182, cm, 09/13/22 13:17:00 EST, Height/Length Dosing, 140.8, kg, 09/13/22 13:17:00 EST, Weight Dosing Start: 11-03-2022 Glucometer test strips, See Instructions, 100 strip(s), 11, Test TID DX E11.40 on insulin, [facility] #[id number], Supply, 182, cm, 09/13/22 13:17:00 EST, Height/Length Dosing, 140.8, kg, 09/13/22 13:17:00 EST, Weight Dosing Start: 11-03-2022 Insulin Pen Need les 31g x 8 mm, See Instructions, 450 EA, 4, Use up to 4 daily, [facility] #[id number], Supply, 182, cm, 09/13/22 13:17:00 EST, Height/Length Dosing, 140.8, kg, 09/13/22 13:17:00 EST, Weight Dosing Start: 09-13-2022 lancets, See Instructions, 100 EA, 11, test blood sugar tid dx E11.9 on insulin, [facility] #[id number], Supply, 182, cm, 09/13/22 13:17:00 EST, Height/Length Dosing, 140.8, kg, 09/13/22 13:17:00 EST, Weight Dosing Start: 11-03-2022 Glucometer test strips, See Instructions, 100 strip(s), 11, Test TID DX E11.40 on insulin, [facility] #[id number], Supply, 182, cm, 09/13/22 13:17:00 EST, Height/Length Dosing, 140.8, kg, 09/13/22 13:17:00 EST, Weight Dosing Start: 11-03-2022 Insulin Pen Need les 31g x 8 mm, See Instructions, 450 EA, 4, Use up to 4 daily, [facility] #[id number], Supply, 182, cm, 09/13/22 13:17:00 EST, Height/Length Dosing, 140.8, kg, 09/13/22 13:17:00 EST, Weight Dosing Start: 09-13-2022 lancets, See Instructions, 100 EA, 11, test blood sugar tid dx E11.9 on insulin, [facility] #[id number], Supply, 182, cm, 09/13/22 13:17:00 EST, Height/Length Dosing, 140.8, kg, 09/13/22 13:17:00 EST, Weight Dosing Start: 11-03-2022 Glucometer test strips, See Instructions, 100 strip(s), 11, Test TID DX E11.40 on insulin, [facility] #[id number], Supply, 182, cm, 09/13/22 13:17:00 EST, Height/Length Dosing, 140.8, kg, 09/13/22 13:17:00 EST, Weight Dosing Start: 11-03-2022 Insulin Pen Need les 31g x 8 mm, See Instructions, 450 EA, 4, Use up to 4 daily, [facility] #[id number], Supply, 182, cm, 09/13/22 13:17:00 EST, Height/Length Dosing, 140.8, kg, 09/13/22 13:17:00 EST, Weight Dosing Start: 09-13-2022 lancets, See Instructions, 100 EA, 11, test blood sugar tid dx E11.9 on insulin, [facility] #[id number], Supply, 182, cm, 09/13/22 13:17:00 EST, Height/Length Dosing, 140.8, kg, 09/13/22 13:17:00 EST, Weight Dosing Start: 11-03-2022 Glucometer test strips, See Instructions, 100 strip(s), 11, Test TID DX E11.40 on insulin, [facility] #[id number], Supply, 182, cm, 09/13/22 13:17:00 EST, Height/Length Dosing, 140.8, kg, 09/13/22 13:17:00 EST, Weight Dosing Start: 11-03-2022 Insulin Pen Need les 31g x 8 mm, See Instructions, 450 EA, 4, Use up to 4 daily, [facility] #[id number], Supply, 182, cm, 09/13/22 13:17:00 EST, Height/Length Dosing, 140.8, kg, 09/13/22 13:17:00 EST, Weight Dosing Start: 09-13-2022 lancets, See Instructions, 100 EA, 11, test blood sugar tid dx E11.9 on insulin, [facility] #[id number], Supply, 182, cm, 09/13/22 13:17:00 EST, Height/Length Dosing, 140.8, kg, 09/13/22 13:17:00 EST, Weight Dosing Start: 11-03-2022 Glucometer test strips, See Instructions, 100 strip(s), 11, Test TID DX E11.40 on insulin, [facility] #[id number], Supply, 182, cm, 09/13/22 13:17:00 EST, Height/Length Dosing, 140.8, kg, 09/13/22 13:17:00 EST, Weight Dosing Start: 11-03-2022 Insulin Pen Need les 31g x 8 mm, See Instructions, 450 EA, 4, Use up to 4 daily, [facility] #[id number], Supply, 182, cm, 09/13/22 13:17:00 EST, Height/Length Dosing, 140.8, kg, 09/13/22 13:17:00 EST, Weight Dosing Start: 09-13-2022 lancets, See Instructions, 100 EA, 11, test blood sugar tid dx E11.9 on insulin, [facility] #[id number], Supply, 182, cm, 09/13/22 13:17:00 EST, Height/Length Dosing, 140.8, kg, 09/13/22 13:17:00 EST, Weight Dosing Start: 11-03-2022 Glucometer test strips, See Instructions, 100 strip(s), 11, Test TID DX E11.40 on insulin, [facility] #[id number], Supply, 182, cm, 09/13/22 13:17:00 EST, Height/Length Dosing, 140.8, kg, 09/13/22 13:17:00 EST, Weight Dosing Start: 11-03-2022 Insulin Pen Need les 31g x 8 mm, See Instructions, 450 EA, 4, Use up to 4 daily, [facility] #[id number], Supply, 182, cm, 05/22/23 13:30:00 EDT, Height/Length Dosing, 139.6, kg, 05/22/23 13:30:00 EDT, Weight Dosing Start: 05-22-2023 lancets, See Instructions, 100 EA, 11, test blood sugar tid dx E11.9 on insulin, [facility] #[id number], Supply, 182, cm, 09/13/22 13:17:00 EST, Height/Length Dosing, 140.8, kg, 09/13/22 13:17:00 EST, Weight Dosing Start: 11-03-2022 Glucometer test strips, See Instructions, 100 strip(s), 11, Test TID DX E11.40 on insulin, [facility] #[id number], Supply, 182, cm, 09/13/22 13:17:00 EST, Height/Length Dosing, 140.8, kg, 09/13/22 13:17:00 EST, Weight Dosing Start: 11-03-2022 Insulin Pen Need les 31g x 8 mm, See Instructions, 450 EA, 4, Use up to 4 daily, [facility] #[id number], Supply, 182, cm, 05/22/23 13:30:00 EDT, Height/Length Dosing, 139.6, kg, 05/22/23 13:30:00 EDT, Weight Dosing Start: 05-22-2023 lancets, See Instructions, 100 EA, 11, test blood sugar tid dx E11.9 on insulin, [facility] #[id number], Supply, 182, cm, 09/13/22 13:17:00 EST, Height/Length Dosing, 140.8, kg, 09/13/22 13:17:00 EST, Weight Dosing Start: 11-03-2022 Glucometer test strips, See Instructions, 100 strip(s), 11, Test TID DX E11.40 on insulin, [facility] #[id number], Supply, 182, cm, 09/13/22 13:17:00 EST, Height/Length Dosing, 140.8, kg, 09/13/22 13:17:00 EST, Weight Dosing Start: 11-03-2022 Insulin Pen Need les 31g x 8 mm, See Instructions, 450 EA, 4, Use up to 4 daily, [facility] #[id number], Supply, 182, cm, 05/22/23 13:30:00 EDT, Height/Length Dosing, 139.6, kg, 05/22/23 13:30:00 EDT, Weight Dosing Start: 05-22-2023 lancets, See Instructions, 100 EA, 11, test blood sugar tid dx E11.9 on insulin, [facility] #[id number], Supply, 182, cm, 09/13/22 13:17:00 EST, Height/Length Dosing, 140.8, kg, 09/13/22 13:17:00 EST, Weight Dosing Start: 11-03-2022 Glucometer test strips, See Instructions, 100 strip(s), 11, Test TID DX E11.40 on insulin, [facility] #[id number], Supply, 182, cm, 09/13/22 13:17:00 EST, Height/Length Dosing, 140.8, kg, 09/13/22 13:17:00 EST, Weight Dosing Start: 11-03-2022 Insulin Pen Need les 31g x 8 mm, See Instructions, 450 EA, 4, Use up to 4 daily, [facility] #[id number], Supply, 182, cm, 05/22/23 13:30:00 EDT, Height/Length Dosing, 139.6, kg, 05/22/23 13:30:00 EDT, Weight Dosing Start: 05-22-2023 lancets, See Instructions, 100 EA, 11, test blood sugar tid dx E11.9 on insulin, [facility] #[id number], Supply, 182, cm, 09/13/22 13:17:00 EST, Height/Length Dosing, 140.8, kg, 09/13/22 13:17:00 EST, Weight Dosing Start: 11-03-2022 Glucometer test strips, See Instructions, 100 strip(s), 11, Test TID DX E11.40 on insulin, [facility] #[id number], Supply, 182, cm, 09/13/22 13:17:00 EST, Height/Length Dosing, 140.8, kg, 09/13/22 13:17:00 EST, Weight Dosing Start: 11-03-2022 Insulin Pen Need les 31g x 8 mm, See Instructions, 450 EA, 4, Use up to 4 daily, [facility] #[id number], Supply, 182, cm, 05/22/23 13:30:00 EDT, Height/Length Dosing, 139.6, kg, 05/22/23 13:30:00 EDT, Weight Dosing Start: 05-22-2023 lancets, See Instructions, 100 EA, 11, test blood sugar tid dx E11.9 on insulin, [facility] #[id number], Supply, 182, cm, 09/13/22 13:17:00 EST, Height/Length Dosing, 140.8, kg, 09/13/22 13:17:00 EST, Weight Dosing Start: 11-03-2022 Glucometer test strips, See Instructions, 100 strip(s), 11, Test TID DX E11.40 on insulin, [facility] #[id number], Supply, 182, cm, 09/13/22 13:17:00 EST, Height/Length Dosing, 140.8, kg, 09/13/22 13:17:00 EST, Weight Dosing Start: 11-03-2022 Insulin Pen Need les 31g x 8 mm, See Instructions, 450 EA, 4, Use up to 4 daily, [facility] #[id number], Supply, 182, cm, 05/22/23 13:30:00 EDT, Height/Length Dosing, 139.6, kg, 05/22/23 13:30:00 EDT, Weight Dosing Start: 05-22-2023 lancets, See Instructions, 100 EA, 11, test blood sugar tid dx E11.9 on insulin, [facility] #[id number], Supply, 182, cm, 09/13/22 13:17:00 EST, Height/Length Dosing, 140.8, kg, 09/13/22 13:17:00 EST, Weight Dosing Start: 11-03-2022 Glucometer test strips, See Instructions, 100 strip(s), 11, Test TID DX E11.40 on insulin, [facility] #[id number], Supply, 182, cm, 09/13/22 13:17:00 EST, Height/Length Dosing, 140.8, kg, 09/13/22 13:17:00 EST, Weight Dosing Start: 11-03-2022 Insulin Pen Need les 31g x 8 mm, See Instructions, 450 EA, 4, Use up to 4 daily, [facility] #[id number], Supply, 182, cm, 05/22/23 13:30:00 EDT, Height/Length Dosing, 139.6, kg, 05/22/23 13:30:00 EDT, Weight Dosing Start: 05-22-2023 lancets, See Instructions, 100 EA, 11, test blood sugar tid dx E11.9 on insulin, [facility] #[id number], Supply, 182, cm, 09/13/22 13:17:00 EST, Height/Length Dosing, 140.8, kg, 09/13/22 13:17:00 EST, Weight Dosing Start: 11-03-2022 Glucometer test strips, See Instructions, 100 strip(s), 11, Test TID DX E11.40 on insulin, [facility] #[id number], Supply, 182, cm, 09/13/22 13:17:00 EST, Height/Length Dosing, 140.8, kg, 09/13/22 13:17:00 EST, Weight Dosing Start: 11-03-2022 Insulin Pen Need les 31g x 8 mm, See Instructions, 450 EA, 4, Use up to 4 daily, [facility] #[id number], Supply, 182, cm, 05/22/23 13:30:00 EDT, Height/Length Dosing, 139.6, kg, 05/22/23 13:30:00 EDT, Weight Dosing Start: 05-22-2023 lancets, See Instructions, 100 EA, 11, test blood sugar tid dx E11.9 on insulin, [facility] #[id number], Supply, 182, cm, 09/13/22 13:17:00 EST, Height/Length Dosing, 140.8, kg, 09/13/22 13:17:00 EST, Weight Dosing Start: 11-03-2022 Glucometer test strips, See Instructions, 100 strip(s), 11, Test TID DX E11.40 on insulin, [facility] #[id number], Supply, 182, cm, 09/13/22 13:17:00 EST, Height/Length Dosing, 140.8, kg, 09/13/22 13:17:00 EST, Weight Dosing Start: 11-03-2022 Insulin Pen Need les 31g x 8 mm, See Instructions, 450 EA, 4, Use up to 4 daily, [facility] #[id number], Supply, 182, cm, 05/22/23 13:30:00 EDT, Height/Length Dosing, 139.6, kg, 05/22/23 13:30:00 EDT, Weight Dosing Start: 05-22-2023 lancets, See Instructions, 100 EA, 11, test blood sugar tid dx E11.9 on insulin, [facility] #[id number], Supply, 182, cm, 09/13/22 13:17:00 EST, Height/Length Dosing, 140.8, kg, 09/13/22 13:17:00 EST, Weight Dosing Start: 11-03-2022 Glucometer test strips, See Instructions, 100 strip(s), 11, Test TID DX E11.40 on insulin, [facility] #[id number], Supply, 182, cm, 09/13/22 13:17:00 EST, Height/Length Dosing, 140.8, kg, 09/13/22 13:17:00 EST, Weight Dosing Start: 11-03-2022 Insulin Pen Need les 31g x 8 mm, See Instructions, 450 EA, 4, Use up to 4 daily, [facility] #[id number], Supply, 182, cm, 05/22/23 13:30:00 EDT, Height/Length Dosing, 139.6, kg, 05/22/23 13:30:00 EDT, Weight Dosing Start: 05-22-2023 lancets, See Instructions, 100 EA, 11, test blood sugar tid dx E11.9 on insulin, [facility] #[id number], Supply, 182, cm, 09/13/22 13:17:00 EST, Height/Length Dosing, 140.8, kg, 09/13/22 13:17:00 EST, Weight Dosing Start: 11-03-2022 Glucometer test strips, See Instructions, 100 strip(s), 11, Test TID DX E11.40 on insulin, [facility] #[id number], Supply, 182, cm, 09/13/22 13:17:00 EST, Height/Length Dosing, 140.8, kg, 09/13/22 13:17:00 EST, Weight Dosing Start: 11-03-2022 Insulin Pen Need les 31g x 8 mm, See Instructions, 450 EA, 4, Use up to 4 daily, [facility] #[id number], Supply, 182, cm, 05/22/23 13:30:00 EDT, Height/Length Dosing, 139.6, kg, 05/22/23 13:30:00 EDT, Weight Dosing Start: 05-22-2023 lancets, See Instructions, 100 EA, 11, test blood sugar tid dx E11.9 on insulin, [facility] #[id number], Supply, 182, cm, 09/13/22 13:17:00 EST, Height/Length Dosing, 140.8, kg, 09/13/22 13:17:00 EST, Weight Dosing Start: 11-03-2022 Glucometer test strips, See Instructions, 100 strip(s), 11, Test TID DX E11.40 on insulin, [facility] #[id number], Supply, 182, cm, 09/13/22 13:17:00 EST, Height/Length Dosing, 140.8, kg, 09/13/22 13:17:00 EST, Weight Dosing Start: 11-03-2022 Insulin Pen Need les 31g x 8 mm, See Instructions, 450 EA, 4, Use up to 4 daily, [facility] #[id number], Supply, 182, cm, 05/22/23 13:30:00 EDT, Height/Length Dosing, 139.6, kg, 05/22/23 13:30:00 EDT, Weight Dosing Start: 05-22-2023 lancets, See Instructions, 100 EA, 11, test blood sugar tid dx E11.9 on insulin, [facility] #[id number], Supply, 182, cm, 09/13/22 13:17:00 EST, Height/Length Dosing, 140.8, kg, 09/13/22 13:17:00 EST, Weight Dosing Start: 11-03-2022 Glucometer test strips, See Instructions, 100 strip(s), 11, Test TID DX E11.40 on insulin, [facility] #[id number], Supply, 182, cm, 09/13/22 13:17:00 EST, Height/Length Dosing, 140.8, kg, 09/13/22 13:17:00 EST, Weight Dosing Start: 11-03-2022 Insulin Pen Need les 31g x 8 mm, See Instructions, 450 EA, 4, Use up to 4 daily, [facility] #[id number], Supply, 182, cm, 05/22/23 13:30:00 EDT, Height/Length Dosing, 139.6, kg, 05/22/23 13:30:00 EDT, Weight Dosing Start: 05-22-2023 lancets, See Instructions, 100 EA, 11, test blood sugar tid dx E11.9 on insulin, [facility] #[id number], Supply, 182, cm, 09/13/22 13:17:00 EST, Height/Length Dosing, 140.8, kg, 09/13/22 13:17:00 EST, Weight Dosing Start: 11-03-2022 Glucometer test strips, See Instructions, 100 strip(s), 11, Test TID DX E11.40 on insulin, [facility] #[id number], Supply, 182, cm, 09/13/22 13:17:00 EST, Height/Length Dosing, 140.8, kg, 09/13/22 13:17:00 EST, Weight Dosing Start: 11-03-2022 Insulin Pen Need les 31g x 8 mm, See Instructions, 450 EA, 4, Use up to 4 daily, [facility] #[id number], Supply, 182, cm, 05/22/23 13:30:00 EDT, Height/Length Dosing, 139.6, kg, 05/22/23 13:30:00 EDT, Weight Dosing Start: 05-22-2023 lancets, See Instructions, 100 EA, 11, test blood sugar tid dx E11.9 on insulin, [facility] #[id number], Supply, 182, cm, 09/13/22 13:17:00 EST, Height/Length Dosing, 140.8, kg, 09/13/22 13:17:00 EST, Weight Dosing Start: 11-03-2022 Glucometer test strips, See Instructions, 100 strip(s), 11, Test TID DX E11.40 on insulin, [facility] #[id number], Supply, 182, cm, 09/13/22 13:17:00 EST, Height/Length Dosing, 140.8, kg, 09/13/22 13:17:00 EST, Weight Dosing Start: 11-03-2022 Insulin Pen Need les 31g x 8 mm, See Instructions, 450 EA, 4, Use up to 4 daily, [facility] #[id number], Supply, 182, cm, 05/22/23 13:30:00 EDT, Height/Length Dosing, 139.6, kg, 05/22/23 13:30:00 EDT, Weight Dosing Start: 05-22-2023 lancets, See Instructions, 100 EA, 11, test blood sugar tid dx E11.9 on insulin, [facility] #[id number], Supply, 182, cm, 09/13/22 13:17:00 EST, Height/Length Dosing, 140.8, kg, 09/13/22 13:17:00 EST, Weight Dosing Start: 11-03-2022 Glucometer test strips, See Instructions, 100 strip(s), 11, Test TID DX E11.40 on insulin, [facility] #[id number], Supply, 180, cm, 09/12/23 13:35:00 EST, Height/Length Dosing, 149.8, kg, 09/12/23 13:35:00 EST, Weight Dosing Start: 09-16-2023 Insulin Pen Need les 31g x 8 mm, See Instructions, 450 EA, 4, Use up to 4 daily, [facility] #[id number], Supply, 180, cm, 09/12/23 13:35:00 EST, Height/Length Dosing, 149.8, kg, 09/12/23 13:35:00 EST, Weight Dosing Start: 09-16-2023 lancets, See Instructions, 100 EA, 11, test blood sugar tid dx E11.9 on insulin, [facility] #[id number], Supply, 180, cm, 09/12/23 13:35:00 EST, Height/Length Dosing, 149.8, kg, 09/12/23 13:35:00 EST, Weight Dosing Start: 09-16-2023 Glucometer test strips, See Instructions, 100 strip(s), 11, Test TID DX E11.40 on insulin, [facility] #[id number], Supply, 180, cm, 09/12/23 13:35:00 EST, Height/Length Dosing, 149.8, kg, 09/12/23 13:35:00 EST, Weight Dosing Start: 09-16-2023 Insulin Pen Need les 31g x 8 mm, See Instructions, 450 EA, 4, Use up to 4 daily, [facility] #[id number], Supply, 180, cm, 09/12/23 13:35:00 EST, Height/Length Dosing, 149.8, kg, 09/12/23 13:35:00 EST, Weight Dosing Start: 09-16-2023 lancets, See Instructions, 100 EA, 11, test blood sugar tid dx E11.9 on insulin, [facility] #[id number], Supply, 180, cm, 09/12/23 13:35:00 EST, Height/Length Dosing, 149.8, kg, 09/12/23 13:35:00 EST, Weight Dosing Start: 09-16-2023 Glucometer test strips, See Instructions, 100 strip(s), 11, Test TID DX E11.40 on insulin, [facility] #[id number], Supply, 180, cm, 09/12/23 13:35:00 EST, Height/Length Dosing, 149.8, kg, 09/12/23 13:35:00 EST, Weight Dosing Start: 09-16-2023 Insulin Pen Need les 31g x 8 mm, See Instructions, 450 EA, 4, Use up to 4 daily, [facility] #[id number], Supply, 180, cm, 09/12/23 13:35:00 EST, Height/Length Dosing, 149.8, kg, 09/12/23 13:35:00 EST, Weight Dosing Start: 09-16-2023 lancets, See Instructions, 100 EA, 11, test blood sugar tid dx E11.9 on insulin, [facility] #[id number], Supply, 180, cm, 09/12/23 13:35:00 EST, Height/Length Dosing, 149.8, kg, 09/12/23 13:35:00 EST, Weight Dosing Start: 09-16-2023 Glucometer test strips, See Instructions, 100 strip(s), 11, Test TID DX E11.40 on insulin, [facility] #[id number], Supply, 180, cm, 09/12/23 13:35:00 EST, Height/Length Dosing, 149.8, kg, 09/12/23 13:35:00 EST, Weight Dosing Start: 09-16-2023 Insulin Pen Need les 31g x 8 mm, See Instructions, 450 EA, 4, Use up to 4 daily, [facility] #[id number], Supply, 180, cm, 09/12/23 13:35:00 EST, Height/Length Dosing, 149.8, kg, 09/12/23 13:35:00 EST, Weight Dosing Start: 09-16-2023 lancets, See Instructions, 100 EA, 11, test blood sugar tid dx E11.9 on insulin, [facility] #[id number], Supply, 180, cm, 09/12/23 13:35:00 EST, Height/Length Dosing, 149.8, kg, 09/12/23 13:35:00 EST, Weight Dosing Start: 09-16-2023 Glucometer test strips, See Instructions, 100 strip(s), 11, Test TID DX E11.40 on insulin, [facility] #[id number], Supply, 180, cm, 09/12/23 13:35:00 EST, Height/Length Dosing, 149.8, kg, 09/12/23 13:35:00 EST, Weight Dosing Start: 09-16-2023 Insulin Pen Need les 31g x 8 mm, See Instructions, 450 EA, 4, Use up to 4 daily, [facility] #[id number], Supply, 180, cm, 09/12/23 13:35:00 EST, Height/Length Dosing, 149.8, kg, 09/12/23 13:35:00 EST, Weight Dosing Start: 09-16-2023 lancets, See Instructions, 100 EA, 11, test blood sugar tid dx E11.9 on insulin, [facility] #[id number], Supply, 180, cm, 09/12/23 13:35:00 EST, Height/Length Dosing, 149.8, kg, 09/12/23 13:35:00 EST, Weight Dosing Start: 09-16-2023 Glucometer test strips, See Instructions, 100 strip(s), 11, Test TID DX E11.40 on insulin, [facility] #[id number], Supply, 180, cm, 09/12/23 13:35:00 EST, Height/Length Dosing, 149.8, kg, 09/12/23 13:35:00 EST, Weight Dosing Start: 09-16-2023 Insulin Pen Need les 31g x 8 mm, See Instructions, 450 EA, 4, Use up to 4 daily, [facility] #[id number], Supply, 180, cm, 09/12/23 13:35:00 EST, Height/Length Dosing, 149.8, kg, 09/12/23 13:35:00 EST, Weight Dosing Start: 09-16-2023 lancets, See Instructions, 100 EA, 11, test blood sugar tid dx E11.9 on insulin, [facility] #[id number], Supply, 180, cm, 09/12/23 13:35:00 EST, Height/Length Dosing, 149.8, kg, 09/12/23 13:35:00 EST, Weight Dosing Start: 09-16-2023 Glucometer test strips, See Instructions, 100 strip(s), 11, Test TID DX E11.40 on insulin, [facility] #[id number], Supply, 180, cm, 09/12/23 13:35:00 EST, Height/Length Dosing, 149.8, kg, 09/12/23 13:35:00 EST, Weight Dosing Start: 09-16-2023 Insulin Pen Need les 31g x 8 mm, See Instructions, 450 EA, 4, Use up to 4 daily, [facility] #[id number], Supply, 180, cm, 09/12/23 13:35:00 EST, Height/Length Dosing, 149.8, kg, 09/12/23 13:35:00 EST, Weight Dosing Start: 09-16-2023 lancets, See Instructions, 100 EA, 11, test blood sugar tid dx E11.9 on insulin, [facility] #[id number], Supply, 180, cm, 09/12/23 13:35:00 EST, Height/Length Dosing, 149.8, kg, 09/12/23 13:35:00 EST, Weight Dosing Start: 09-16-2023 Glucometer test strips, See Instructions, 100 strip(s), 11, Test TID DX E11.40 on insulin, [facility] #[id number], Supply, 180, cm, 09/12/23 13:35:00 EST, Height/Length Dosing, 149.8, kg, 09/12/23 13:35:00 EST, Weight Dosing Start: 09-16-2023 Insulin Pen Need les 31g x 8 mm, See Instructions, 450 EA, 4, Use up to 4 daily, [facility] #[id number], Supply, 180, cm, 09/12/23 13:35:00 EST, Height/Length Dosing, 149.8, kg, 09/12/23 13:35:00 EST, Weight Dosing Start: 09-16-2023 lancets, See Instructions, 100 EA, 11, test blood sugar tid dx E11.9 on insulin, [facility] #[id number], Supply, 180, cm, 09/12/23 13:35:00 EST, Height/Length Dosing, 149.8, kg, 09/12/23 13:35:00 EST, Weight Dosing Start: 09-16-2023 Glucometer test strips, See Instructions, 100 strip(s), 11, Test TID DX E11.40 on insulin, [facility] #[id number], Supply, 180, cm, 09/12/23 13:35:00 EST, Height/Length Dosing, 149.8, kg, 09/12/23 13:35:00 EST, Weight Dosing Start: 09-16-2023 Insulin Pen Need les 31g x 8 mm, See Instructions, 450 EA, 4, Use up to 4 daily, [facility] #[id number], Supply, 180, cm, 09/12/23 13:35:00 EST, Height/Length Dosing, 149.8, kg, 09/12/23 13:35:00 EST, Weight Dosing Start: 09-16-2023 lancets, See Instructions, 100 EA, 11, test blood sugar tid dx E11.9 on insulin, [facility] #[id number], Supply, 180, cm, 09/12/23 13:35:00 EST, Height/Length Dosing, 149.8, kg, 09/12/23 13:35:00 EST, Weight Dosing Start: 09-16-2023 Glucometer test strips, See Instructions, 100 strip(s), 11, Test TID DX E11.40 on insulin, [facility] #[id number], Supply, 180, cm, 09/12/23 13:35:00 EST, Height/Length Dosing, 149.8, kg, 09/12/23 13:35:00 EST, Weight Dosing Start: 09-16-2023 Insulin Pen Need les 31g x 8 mm, See Instructions, 450 EA, 4, Use up to 4 daily, [facility] #[id number], Supply, 180, cm, 09/12/23 13:35:00 EST, Height/Length Dosing, 149.8, kg, 09/12/23 13:35:00 EST, Weight Dosing Start: 09-16-2023 lancets, See Instructions, 100 EA, 11, test blood sugar tid dx E11.9 on insulin, [facility] #[id number], Supply, 180, cm, 09/12/23 13:35:00 EST, Height/Length Dosing, 149.8, kg, 09/12/23 13:35:00 EST, Weight Dosing Start: 09-16-2023 Glucometer test strips, See Instructions, 100 strip(s), 11, Test TID DX E11.40 on insulin, [facility] #[id number], Supply, 180, cm, 09/12/23 13:35:00 EST, Height/Length Dosing, 149.8, kg, 09/12/23 13:35:00 EST, Weight Dosing Start: 09-16-2023 Insulin Pen Need les 31g x 8 mm, See Instructions, 450 EA, 4, Use up to 4 daily, [facility] #[id number], Supply, 180, cm, 09/12/23 13:35:00 EST, Height/Length Dosing, 149.8, kg, 09/12/23 13:35:00 EST, Weight Dosing Start: 09-16-2023 lancets, See Instructions, 100 EA, 11, test blood sugar tid dx E11.9 on insulin, [facility] #[id number], Supply, 180, cm, 09/12/23 13:35:00 EST, Height/Length Dosing, 149.8, kg, 09/12/23 13:35:00 EST, Weight Dosing Start: 09-16-2023 Glucometer test strips, See Instructions, 100 strip(s), 11, Test TID DX E11.40 on insulin, [facility] #[id number], Supply, 180, cm, 09/12/23 13:35:00 EST, Height/Length Dosing, 149.8, kg, 09/12/23 13:35:00 EST, Weight Dosing Start: 09-16-2023 Insulin Pen Need les 31g x 8 mm, See Instructions, 450 EA, 4, Use up to 4 daily, [facility] #[id number], Supply, 180, cm, 09/12/23 13:35:00 EST, Height/Length Dosing, 149.8, kg, 09/12/23 13:35:00 EST, Weight Dosing Start: 09-16-2023 lancets, See Instructions, 100 EA, 11, test blood sugar tid dx E11.9 on insulin, [facility] #[id number], Supply, 180, cm, 09/12/23 13:35:00 EST, Height/Length Dosing, 149.8, kg, 09/12/23 13:35:00 EST, Weight Dosing Start: 09-16-2023 Glucometer test strips, See Instructions, 100 strip(s), 11, Test TID DX E11.40 on insulin, [facility] #[id number], Supply, 180, cm, 09/12/23 13:35:00 EST, Height/Length Dosing, 149.8, kg, 09/12/23 13:35:00 EST, Weight Dosing Start: 09-16-2023 Insulin Pen Need les 31g x 8 mm, See Instructions, 450 EA, 4, Use up to 4 daily, [facility] #[id number], Supply, 180, cm, 09/12/23 13:35:00 EST, Height/Length Dosing, 149.8, kg, 09/12/23 13:35:00 EST, Weight Dosing Start: 09-16-2023 lancets, See Instructions, 100 EA, 11, test blood sugar tid dx E11.9 on insulin, [facility] #[id number], Supply, 180, cm, 09/12/23 13:35:00 EST, Height/Length Dosing, 149.8, kg, 09/12/23 13:35:00 EST, Weight Dosing Start: 09-16-2023 Glucometer test strips, See Instructions, 100 strip(s), 11, Test TID DX E11.40 on insulin, [facility] #[id number], Supply, 180, cm, 09/12/23 13:35:00 EST, Height/Length Dosing, 149.8, kg, 09/12/23 13:35:00 EST, Weight Dosing Start: 09-16-2023 Insulin Pen Need les 31g x 8 mm, See Instructions, 450 EA, 4, Use up to 4 daily, [facility] #[id number], Supply, 180, cm, 09/12/23 13:35:00 EST, Height/Length Dosing, 149.8, kg, 09/12/23 13:35:00 EST, Weight Dosing Start: 09-16-2023 lancets, See Instructions, 100 EA, 11, test blood sugar tid dx E11.9 on insulin, [facility] #[id number], Supply, 180, cm, 09/12/23 13:35:00 EST, Height/Length Dosing, 149.8, kg, 09/12/23 13:35:00 EST, Weight Dosing Start: 09-16-2023 Glucometer test strips, See Instructions, 100 strip(s), 11, Test TID DX E11.40 on insulin, [facility] #[id number], Supply, 180, cm, 09/12/23 13:35:00 EST, Height/Length Dosing, 149.8, kg, 09/12/23 13:35:00 EST, Weight Dosing Start: 09-16-2023 Insulin Pen Need les 31g x 8 mm, See Instructions, 450 EA, 4, Use up to 4 daily, [facility] #[id number], Supply, 180, cm, 09/12/23 13:35:00 EST, Height/Length Dosing, 149.8, kg, 09/12/23 13:35:00 EST, Weight Dosing Start: 09-16-2023 lancets, See Instructions, 100 EA, 11, test blood sugar tid dx E11.9 on insulin, [facility] #[id number], Supply, 180, cm, 09/12/23 13:35:00 EST, Height/Length Dosing, 149.8, kg, 09/12/23 13:35:00 EST, Weight Dosing Start: 09-16-2023 Glucometer test strips, See Instructions, 100 strip(s), 11, Test TID DX E11.40 on insulin, [facility] #[id number], Supply, 180, cm, 09/12/23 13:35:00 EST, Height/Length Dosing, 149.8, kg, 09/12/23 13:35:00 EST, Weight Dosing Start: 09-16-2023 Insulin Pen Need les 31g x 8 mm, See Instructions, 450 EA, 4, Use up to 4 daily, [facility] #[id number], Supply, 180, cm, 09/12/23 13:35:00 EST, Height/Length Dosing, 149.8, kg, 09/12/23 13:35:00 EST, Weight Dosing Start: 09-16-2023 lancets, See Instructions, 100 EA, 11, test blood sugar tid dx E11.9 on insulin, [facility] #[id number], Supply, 180, cm, 09/12/23 13:35:00 EST, Height/Length Dosing, 149.8, kg, 09/12/23 13:35:00 EST, Weight Dosing Start: 09-16-2023 Glucometer test strips, See Instructions, 100 strip(s), 11, Test TID DX E11.40 on insulin, [facility] #[id number], Supply, 180, cm, 09/12/23 13:35:00 EST, Height/Length Dosing, 149.8, kg, 09/12/23 13:35:00 EST, Weight Dosing Start: 09-16-2023 Insulin Pen Need les 31g x 8 mm, See Instructions, 450 EA, 4, Use up to 4 daily, [facility] #[id number], Supply, 180, cm, 09/12/23 13:35:00 EST, Height/Length Dosing, 149.8, kg, 09/12/23 13:35:00 EST, Weight Dosing Start: 09-16-2023 lancets, See Instructions, 100 EA, 11, test blood sugar tid dx E11.9 on insulin, [facility] #[id number], Supply, 180, cm, 09/12/23 13:35:00 EST, Height/Length Dosing, 149.8, kg, 09/12/23 13:35:00 EST, Weight Dosing Start: 09-16-2023 Glucometer test strips, See Instructions, 100 strip(s), 11, Test TID DX E11.40 on insulin, [facility] #[id number], Supply, 180, cm, 09/12/23 13:35:00 EST, Height/Length Dosing, 149.8, kg, 09/12/23 13:35:00 EST, Weight Dosing Start: 09-16-2023 Insulin Pen Need les 31g x 8 mm, See Instructions, 450 EA, 4, Use up to 4 daily, [facility] #[id number], Supply, 180, cm, 09/12/23 13:35:00 EST, Height/Length Dosing, 149.8, kg, 09/12/23 13:35:00 EST, Weight Dosing Start: 09-16-2023 lancets, See Instructions, 100 EA, 11, test blood sugar tid dx E11.9 on insulin, [facility] #[id number], Supply, 180, cm, 09/12/23 13:35:00 EST, Height/Length Dosing, 149.8, kg, 09/12/23 13:35:00 EST, Weight Dosing Start: 09-16-2023 Glucometer test strips, See Instructions, 100 strip(s), 11, Test TID DX E11.40 on insulin, [facility] #[id number], Supply, 180, cm, 09/12/23 13:35:00 EST, Height/Length Dosing, 149.8, kg, 09/12/23 13:35:00 EST, Weight Dosing Start: 09-16-2023 Insulin Pen Need les 31g x 8 mm, See Instructions, 450 EA, 4, Use up to 4 daily, [facility] #[id number], Supply, 180, cm, 09/12/23 13:35:00 EST, Height/Length Dosing, 149.8, kg, 09/12/23 13:35:00 EST, Weight Dosing Start: 09-16-2023 lancets, See Instructions, 100 EA, 11, test blood sugar tid dx E11.9 on insulin, [facility] #[id number], Supply, 180, cm, 09/12/23 13:35:00 EST, Height/Length Dosing, 149.8, kg, 09/12/23 13:35:00 EST, Weight Dosing Start: 09-16-2023 Glucometer test strips, See Instructions, 100 strip(s), 11, Test TID DX E11.40 on insulin, [facility] #[id number], Supply, 180, cm, 09/12/23 13:35:00 EST, Height/Length Dosing, 149.8, kg, 09/12/23 13:35:00 EST, Weight Dosing Start: 09-16-2023 Insulin Pen Need les 31g x 8 mm, See Instructions, 450 EA, 4, Use up to 4 daily, [facility] #[id number], Supply, 180, cm, 09/12/23 13:35:00 EST, Height/Length Dosing, 149.8, kg, 09/12/23 13:35:00 EST, Weight Dosing Start: 09-16-2023 lancets, See Instructions, 100 EA, 11, test blood sugar tid dx E11.9 on insulin, [facility] #[id number], Supply, 180, cm, 09/12/23 13:35:00 EST, Height/Length Dosing, 149.8, kg, 09/12/23 13:35:00 EST, Weight Dosing Start: 09-16-2023 Glucometer test strips, See Instructions, 100 strip(s), 11, Test TID DX E11.40 on insulin, [facility] #[id number], Supply, 180, cm, 09/12/23 13:35:00 EST, Height/Length Dosing, 149.8, kg, 09/12/23 13:35:00 EST, Weight Dosing Start: 09-16-2023 Insulin Pen Need les 31g x 8 mm, See Instructions, 450 EA, 4, Use up to 4 daily, [facility] #[id number], Supply, 180, cm, 09/12/23 13:35:00 EST, Height/Length Dosing, 149.8, kg, 09/12/23 13:35:00 EST, Weight Dosing Start: 09-16-2023 lancets, See Instructions, 100 EA, 11, test blood sugar tid dx E11.9 on insulin, [facility] #[id number], Supply, 180, cm, 09/12/23 13:35:00 EST, Height/Length Dosing, 149.8, kg, 09/12/23 13:35:00 EST, Weight Dosing Start: 09-16-2023 Glucometer test strips, See Instructions, 100 strip(s), 11, Test TID DX E11.40 on insulin, [facility] #[id number], Supply, 180, cm, 09/12/23 13:35:00 EST, Height/Length Dosing, 149.8, kg, 09/12/23 13:35:00 EST, Weight Dosing Start: 09-16-2023 Insulin Pen Need les 31g x 8 mm, See Instructions, 450 EA, 4, Use up to 4 daily, [facility] #[id number], Supply, 180, cm, 09/12/23 13:35:00 EST, Height/Length Dosing, 149.8, kg, 09/12/23 13:35:00 EST, Weight Dosing Start: 09-16-2023 lancets, See Instructions, 100 EA, 11, test blood sugar tid dx E11.9 on insulin, [facility] #[id number], Supply, 180, cm, 09/12/23 13:35:00 EST, Height/Length Dosing, 149.8, kg, 09/12/23 13:35:00 EST, Weight Dosing Start: 09-16-2023 Glucometer test strips, See Instructions, 100 strip(s), 11, Test TID DX E11.40 on insulin, [facility] #[id number], Supply, 180, cm, 09/12/23 13:35:00 EST, Height/Length Dosing, 149.8, kg, 09/12/23 13:35:00 EST, Weight Dosing Start: 09-16-2023 Insulin Pen Need les 31g x 8 mm, See Instructions, 450 EA, 4, Use up to 4 daily, [facility] #[id number], Supply, 180, cm, 09/12/23 13:35:00 EST, Height/Length Dosing, 149.8, kg, 09/12/23 13:35:00 EST, Weight Dosing Start: 09-16-2023 lancets, See Instructions, 100 EA, 11, test blood sugar tid dx E11.9 on insulin, [facility] #[id number], Supply, 180, cm, 09/12/23 13:35:00 EST, Height/Length Dosing, 149.8, kg, 09/12/23 13:35:00 EST, Weight Dosing Start: 09-16-2023 Glucometer test strips, See Instructions, 100 strip(s), 11, Test TID DX E11.40 on insulin, [facility] #[id number], Supply, 180, cm, 09/12/23 13:35:00 EST, Height/Length Dosing, 149.8, kg, 09/12/23 13:35:00 EST, Weight Dosing Start: 09-16-2023 Insulin Pen Need les 31g x 8 mm, See Instructions, 450 EA, 4, Use up to 4 daily, [facility] #[id number], Supply, 180, cm, 09/12/23 13:35:00 EST, Height/Length Dosing, 149.8, kg, 09/12/23 13:35:00 EST, Weight Dosing Start: 09-16-2023 lancets, See Instructions, 100 EA, 11, test blood sugar tid dx E11.9 on insulin, [facility] #[id number], Supply, 180, cm, 09/12/23 13:35:00 EST, Height/Length Dosing, 149.8, kg, 09/12/23 13:35:00 EST, Weight Dosing Start: 09-16-2023 Glucometer test strips, See Instructions, 100 strip(s), 11, Test TID DX E11.40 on insulin, [facility] #[id number], Supply, 180, cm, 09/12/23 13:35:00 EST, Height/Length Dosing, 149.8, kg, 09/12/23 13:35:00 EST, Weight Dosing Start: 09-16-2023 Insulin Pen Need les 31g x 8 mm, See Instructions, 450 EA, 4, Use up to 4 daily, [facility] #[id number], Supply, 180, cm, 09/12/23 13:35:00 EST, Height/Length Dosing, 149.8, kg, 09/12/23 13:35:00 EST, Weight Dosing Start: 09-16-2023 lancets, See Instructions, 100 EA, 11, test blood sugar tid dx E11.9 on insulin, [facility] #[id number], Supply, 180, cm, 09/12/23 13:35:00 EST, Height/Length Dosing, 149.8, kg, 09/12/23 13:35:00 EST, Weight Dosing Start: 09-16-2023 Glucometer test strips, See Instructions, 100 strip(s), 11, Test TID DX E11.40 on insulin, [facility] #[id number], Supply, 180, cm, 09/12/23 13:35:00 EST, Height/Length Dosing, 149.8, kg, 09/12/23 13:35:00 EST, Weight Dosing Start: 09-16-2023 Insulin Pen Need les 31g x 8 mm, See Instructions, 450 EA, 4, Use up to 4 daily, [facility] #[id number], Supply, 180, cm, 09/12/23 13:35:00 EST, Height/Length Dosing, 149.8, kg, 09/12/23 13:35:00 EST, Weight Dosing Start: 09-16-2023 lancets, See Instructions, 100 EA, 11, test blood sugar tid dx E11.9 on insulin, [facility] #[id number], Supply, 180, cm, 09/12/23 13:35:00 EST, Height/Length Dosing, 149.8, kg, 09/12/23 13:35:00 EST, Weight Dosing Start: 09-16-2023 Glucometer test strips, See Instructions, 100 strip(s), 11, Test TID DX E11.40 on insulin, [facility] #[id number], Supply, 180, cm, 09/12/23 13:35:00 EST, Height/Length Dosing, 149.8, kg, 09/12/23 13:35:00 EST, Weight Dosing Start: 09-16-2023 Insulin Pen Need les 31g x 8 mm, See Instructions, 450 EA, 4, Use up to 4 daily, [facility] #[id number], Supply, 180, cm, 09/12/23 13:35:00 EST, Height/Length Dosing, 149.8, kg, 09/12/23 13:35:00 EST, Weight Dosing Start: 09-16-2023 lancets, See Instructions, 100 EA, 11, test blood sugar tid dx E11.9 on insulin, [facility] #[id number], Supply, 180, cm, 09/12/23 13:35:00 EST, Height/Length Dosing, 149.8, kg, 09/12/23 13:35:00 EST, Weight Dosing Start: 09-16-2023 Glucometer test strips, See Instructions, 100 strip(s), 11, Test TID DX E11.40 on insulin, [facility] #[id number], Supply, 180, cm, 09/12/23 13:35:00 EST, Height/Length Dosing, 149.8, kg, 09/12/23 13:35:00 EST, Weight Dosing Start: 09-16-2023 Insulin Pen Need les 31g x 8 mm, See Instructions, 450 EA, 4, Use up to 4 daily, [facility] #[id number], Supply, 180, cm, 09/12/23 13:35:00 EST, Height/Length Dosing, 149.8, kg, 09/12/23 13:35:00 EST, Weight Dosing Start: 09-16-2023 lancets, See Instructions, 100 EA, 11, test blood sugar tid dx E11.9 on insulin, [facility] #[id number], Supply, 180, cm, 09/12/23 13:35:00 EST, Height/Length Dosing, 149.8, kg, 09/12/23 13:35:00 EST, Weight Dosing Start: 09-16-2023 Glucometer test strips, See Instructions, 100 strip(s), 11, Test TID DX E11.40 on insulin, [facility] #[id number], Supply, 180, cm, 09/12/23 13:35:00 EST, Height/Length Dosing, 149.8, kg, 09/12/23 13:35:00 EST, Weight Dosing Start: 09-16-2023 Insulin Pen Need les 31g x 8 mm, See Instructions, 450 EA, 4, Use up to 4 daily, [facility] #[id number], Supply, 180, cm, 09/12/23 13:35:00 EST, Height/Length Dosing, 149.8, kg, 09/12/23 13:35:00 EST, Weight Dosing Start: 09-16-2023 lancets, See Instructions, 100 EA, 11, test blood sugar tid dx E11.9 on insulin, [facility] #[id number], Supply, 180, cm, 09/12/23 13:35:00 EST, Height/Length Dosing, 149.8, kg, 09/12/23 13:35:00 EST, Weight Dosing Start: 09-16-2023 Glucometer test strips, See Instructions, 100 strip(s), 11, Test TID DX E11.40 on insulin, [facility] #[id number], Supply, 180, cm, 09/12/23 13:35:00 EST, Height/Length Dosing, 149.8, kg, 09/12/23 13:35:00 EST, Weight Dosing Start: 09-16-2023 Insulin Pen Need les 31g x 8 mm, See Instructions, 450 EA, 4, Use up to 4 daily, [facility] #[id number], Supply, 180, cm, 09/12/23 13:35:00 EST, Height/Length Dosing, 149.8, kg, 09/12/23 13:35:00 EST, Weight Dosing Start: 09-16-2023 lancets, See Instructions, 100 EA, 11, test blood sugar tid dx E11.9 on insulin, [facility] #[id number], Supply, 180, cm, 09/12/23 13:35:00 EST, Height/Length Dosing, 149.8, kg, 09/12/23 13:35:00 EST, Weight Dosing Start: 09-16-2023 Glucometer test strips, See Instructions, 100 strip(s), 11, Test TID DX E11.40 on insulin, [facility] #[id number], Supply, 180, cm, 09/12/23 13:35:00 EST, Height/Length Dosing, 149.8, kg, 09/12/23 13:35:00 EST, Weight Dosing Start: 09-16-2023 Insulin Pen Need les 31g x 8 mm, See Instructions, 450 EA, 4, Use up to 4 daily, [facility] #[id number], Supply, 180, cm, 09/12/23 13:35:00 EST, Height/Length Dosing, 149.8, kg, 09/12/23 13:35:00 EST, Weight Dosing Start: 09-16-2023 lancets, See Instructions, 100 EA, 11, test blood sugar tid dx E11.9 on insulin, [facility] #[id number], Supply, 180, cm, 09/12/23 13:35:00 EST, Height/Length Dosing, 149.8, kg, 09/12/23 13:35:00 EST, Weight Dosing Start: 09-16-2023 [id number] Start: 05-05-2024 End: 06-21-2025 Glucometer test strips, See Instructions, 100 strip(s), 11, Test TID DX E11.40 on insulin, [facility] #[id number], Supply, 180, cm, 09/12/23 13:35:00 EST, Height/Length Dosing, 149.8, kg, 09/12/23 13:35:00 EST, Weight Dosing Start: 09-16-2023 Insulin Pen Need les 31g x 8 mm, See Instructions, 450 EA, 4, Use up to 4 daily, [facility] #[id number], Supply, 180, cm, 09/12/23 13:35:00 EST, Height/Length Dosing, 149.8, kg, 09/12/23 13:35:00 EST, Weight Dosing Start: 09-16-2023 lancets, See Instructions, 100 EA, 11, test blood sugar tid dx E11.9 on insulin, [facility] #[id number], Supply, 180, cm, 09/12/23 13:35:00 EST, Height/Length Dosing, 149.8, kg, 09/12/23 13:35:00 EST, Weight Dosing Start: 09-16-2023 Glucometer test strips, See Instructions, 100 strip(s), 11, Test TID DX E11.40 on insulin, [facility] #[id number], Supply, 180, cm, 09/12/23 13:35:00 EST, Height/Length Dosing, 149.8, kg, 09/12/23 13:35:00 EST, Weight Dosing Start: 09-16-2023 Insulin Pen Need les 31g x 8 mm, See Instructions, 450 EA, 4, Use up to 4 daily, [facility] #[id number], Supply, 180, cm, 09/12/23 13:35:00 EST, Height/Length Dosing, 149.8, kg, 09/12/23 13:35:00 EST, Weight Dosing Start: 09-16-2023 lancets, See Instructions, 100 EA, 11, test blood sugar tid dx E11.9 on insulin, [facility] #[id number], Supply, 180, cm, 09/12/23 13:35:00 EST, Height/Length Dosing, 149.8, kg, 09/12/23 13:35:00 EST, Weight Dosing Start: 09-16-2023 Glucometer test strips, See Instructions, 100 strip(s), 11, Test TID DX E11.40 on insulin, [facility] #[id number], Supply, 180, cm, 09/12/23 13:35:00 EST, Height/Length Dosing, 149.8, kg, 09/12/23 13:35:00 EST, Weight Dosing Start: 09-16-2023 Insulin Pen Need les 31g x 8 mm, See Instructions, 450 EA, 4, Use up to 4 daily, [facility] #[id number], Supply, 180, cm, 09/12/23 13:35:00 EST, Height/Length Dosing, 149.8, kg, 09/12/23 13:35:00 EST, Weight Dosing Start: 09-16-2023 lancets, See Instructions, 100 EA, 11, test blood sugar tid dx E11.9 on insulin, [facility] #[id number], Supply, 180, cm, 09/12/23 13:35:00 EST, Height/Length Dosing, 149.8, kg, 09/12/23 13:35:00 EST, Weight Dosing Start: 09-16-2023 USE TO TEST BLOO D SUGARS THREE TIMES A DAY. [id number] Start: 12-05-2024 End: 03-13-2025 Pen Needle 31G x 6mm, See Instructions, 100 EA, 1, Pen Needle 31G x 6mm, [facility] #[id number], Supply, 182, cm, 12/20/24 13:40:00 EDT, Height/Length Dosing, 118.4, kg, 12/20/24 13:40:00 EDT, Weight Dosing Start: 12-21-2024 USE TO TEST BLOO D SUGARS THREE TIMES A DAY. [id number] Start: 03-13-2025 Goals Date Patient Goal Desired Activity /State 12-03-2019 Functional Status Date Assessment Result Facility 12-20-2024 Functional Status N/A [facility] 12-20-2024 Functional Status [facility] 12-04-2024 Patient Health Questionnaire 2 item (PHQ-2) [Reported] [facility] 12-02-2024 Functional Status N/A [facility] 07-09-2024 Functional Status N/A [facility] 06-23-2024 Functional Status N/A [facility] 02-28-2024 Functional Status N/A [facility] 02-09-2024 Functional Status N/A [facility] 01-15-2024 Functional Status N/A [facility] 11-20-2023 Functional Status N/A [facility] 11-17-2023 Functional status Patient is Pro gressing Toward [facility] Work Phone: 11-11-2023 Functional Status N/A [facility] 10-30-2023 Functional Status N/A [facility] 10-18-2023 Functional Status N/A [facility] 10-15-2023 Functional Status N/A [facility] 10-12-2023 Functional status Patient at [facility] Work Phone: 09-24-2023 Functional Status N/A [facility] 09-17-2023 Functional Status N/A [facility] 08-06-2023 Functional Status N/A [facility] 06-21-2023 Functional status Patient at [facility] Work Phone: 06-11-2023 Functional Status N/A [facility] 06-11-2023 Functional Status [facility] 05-22-2023 Functional Status N/A [facility] 05-08-2023 Functional Status No [facility] 09-13-2022 Functional Status N/A [facility] 08-04-2022 Functional Status N/A [facility] 03-29-2022 Functional Status N/A [facility] 03-08-2022 Functional Status N/A [facility] Mental Status Date Assessment Result Facility 11-17-2023 Cognitive function Cognitive Sta tus Patient at Baseline [facility] Work Phone: 10-12-2023 Cognitive function Cognitive Sta tus Patient at Baseline [facility] Work Phone: 06-21-2023 Cognitive function Cognitive Sta tus Patient at Baseline [facility] Work Phone: Clinical Notes 12-28-2021 to 04-29-2025 Mounika Brooke MD - 04/29/2025 11:00 AM EDTTelephone Encounter - Cooper Bradford - 03/24/2025 8:06 AM EDTTelephone Encounter - Cooper Bradford - 03/24/2025 8:06 AM EDT Note Date & Type Note Facility 04-29-2025 History of Present illness Narrative Images from [...] Blood pressure 112/60, pulse 89, temperature 97.2 F, height 5' 11 , weight 263 lb 12.8 oz, SpO2 95%. Body mass index is 36.79 kg/m . Physical Exam General: alert & oriented, NAD Head: NC/AT Oral Cavity: MMM Skin: warm, dry Heart: RRR, No m/r/g, S1S2 nml Lungs: CTA b/l Abdomen: soft, ND/NT, BS wnl Musculoskeletal: abnormal gait Extremities: L foot in boot with dressing in place Neurological: nonfocal Psych: tearful, crying at times Assessment/Plan Nicole was seen today for med refill. Diagnoses [...] monitor. No change in regimen. Morbid obesity ([facility]) - continue to monitor weight BMI 36.0-36.9,adult documented in this encounter [facility] 03-24-2025 Telephone encounter Note Pt called into the office, he wants to cancel the nurse that is coming to his apartment. He said it is not working out. He thinks might be [place] [facility] 03-24-2025 Miscellaneous Notes Pt called into the office, he wants to cancel the nurse that is coming to his apartment. He said it is not working out. He thinks might be [place] documented in this encounter [facility] 03-13-2025 History of Present [...] Row Patient Outreach from 03/11/2025 in [facility] with Grecia Mcneil LPN Hospital Information ED, Hospital or Retirement Facility Discharge? Hospital Patient has been contacted within two business days of discharge Yes Diagnosis Electorolyte abnormality from severe hyperglycemia, left leg cramps Discharge Date 03/07/25 Discharged To: Home Setting Discharge Hospital [facility] Engagement Admission Date 03/05/25 Medications Discharge [...] monitor. No change in regimen. Morbid obesity ([facility]) - continue to monitor weight BMI 38.0-38.9,adult Follow up if symptoms worsen or fail to improve. documented in this encounter [facility] 03-07-2025 Note Discharge Summary [...] 2 days. He was subsequently admitted to [facility] with left leg muscle spasm secondary to [...] speech normal Ps (more content not included)... [facility] Comment on above: Result Comment: Elec tronically Signed By: NAHOMY LYMAN, Jordan\.br\Date and Time Signed: 03/07/25 09:36 EDT 03-06-2025 Note Interdisciplinary No te - PT PT Evaluation completed with an AMPAC score of 22/24. Pt sitting EOB at entrance and was able to perform sit to stand transfers with Mod I. Pt was able to ambulate with FWW with no reports of leg pain. Did ambulate x 2 times with no LOB or pain. Pt would be functionally safe to return home with use of FWW as prior. No further PT services needed [facility] 03-06-2025 Note Progress Note-Physic abundio Assessment/Plan 65-year-old [...] hyperglycemia. Resolved. Was treated with orphenadrine. Ordered: [facility] Hospital Care/Day Moderate 35 Minutes [id number] 2. Type 2 diabetes mellitus with hyperosmolar nonketotic hyperglycemia (E11.00: Type 2 diabetes mellitus with hyperosmolarity without nonketotic hyperglycemic-hyperosmolar coma ([facility])) Acute hyperosmolar nonketotic hyperglycemia???present on admission. Secondary to noncompliance with medication. Treated with IV insulin drip and IV fluid. Hemoglobin A1c 11.8%. Will start patient on long-acting insulin, regular insulin and sliding scale insulin. Ordered: [facility] Hospital Care/Day Moderate 35 Minutes [id number] 3. Pseudohyponatremia (R79.89: Other specified abnormal findings of blood chemistry) Secondary to hypoglycemia. Resolved. Ordered: [facility] Hospital Care/Day Moderate 35 Minutes [id number] 4. CKD (chronic kidney disease) (N18.9: Chronic kidney disease, unspecified) Chronic kidney disease stage III???back to baseline. Ordered: [facility] Hospital Care/Day Moderate 35 Minutes [id number] 5. Hypertension (I10: Essential (primary) hypertension) Blood [...] made to ensure accuracy. However inadvertent computerized marine farmer errors may be present. Jordan Macario. Hospitalist. [...] no deformity. Gastrointestin (more content not included)... [facility] Comment on above: Result Comment: Elec tronically [...] 20:15:00) Lymph Auto: 17.9 % (03/05/25 20:15:00) [place] Auto: 6.5 % (03/05/25 20:15:00) Eos Auto: 2.4 % (03/05/25:15:00) Basophil Auto: 0.9 % (03/05/25:15:00) Neutro Absolute: 5 E9/L (03/05/25 20:15:00) Lymph Absolute: 1.2 E9/L (03/05/25 20:15:00) [place] Absolute: 0.4 E9/L (03/05/25 20:15:00) Eos Absolute: 0.2 E9/L (03/05/25:15:00) Basophil Absolute: 0.1 E9/L (03/05/25:15:00) Glucose Lvl: [...] mmol/L Low (03/05/25 20:15:00) CO2: 25 mmol/L (03/05/25:15:00) AGAP: 13 mEq/L (03/05/25:15:00) Calcium Lvl: 8.4 mg/dL Low (03/05/25 20:15:00) Alk Phos: 160 Int._Unit/L High (03/05/25 20:15:00) ALT: 19 Int._Unit/L (03/05/25 20:15:00) AST: 15 Int._Unit/L (03/05/25 20:15:00) Total Protein: 6.1 gm/dL (03/05/25 20:15:00) Albumin Lvl: 3.3 gm/dL (03/05/25 20:15:00) Globulin: 2.8 gm/dL (03/05/25 20:15:00) A/G Ratio: 1.2 (03/05/25 20:15:00) B (more content not included)... [facility] Comment on above: Result Comment: Elec tronically Signed By: Erick LYMAN, Jigna\.br\Date and Time Signed: 03/05/25 23:22 EDT 02-05-2025 History of Present illness Narrative Images from the original note were not included. Subjective Patient ID: Nicole Lora is a 65 y.o. male who presents for No chief complaint on file.. HPI Pt here for follow up. Has been working with [employer] for possible scooter. States they have been [...] weakness, bilateral - Continue to work with [facility] Essential (primary) hypertension Stable, continue to monitor. No change in regimen. Difficulty walking - as above Type 2 diabetes mellitus with hyperglycemia, with long-term current use of insulin (HCC) - continue to follow w/ endocrinology Long-term insulin use (HCC) Morbid obesity ([facility]) - continue to monitor weight BMI 36.0-36.9,adult documented in this encounter [facility] 02-05-2025 Telephone encounter Note Brittani from called and stated that he's been unbalanced, having a hard time sleeping, his blood sugar is at 155. Pt states that is too low for him. [facility] 02-05-2025 Miscellaneous Notes Brittani from called and stated that he's been unbalanced, having a hard time sleeping, his blood sugar is at 155. Pt states that is too low for him. documented in this encounter [facility] 12-25-2024 History of Present [...] mg, Every 24 hours Continuous Blood Gluc Special Shopper (FreeStyle Sage 3 [place]) device 1 each, Does not apply, Continuous Continuous Blood Gluc Sensor (FreeStyle Sage 3 Sensor) misc 1 each, Does not apply, Every 14 days doxycycline (VIBRAMYCIN) 100 mg, 2 times daily DULoxetine (CYMBALTA) 60 mg, Daily Fiasp FlexTouch 100 UNIT/ML injection inject PLUS ISS #2 (EXPECT DAILY DOSE OF 80 UNITS) gabapentin (NEURONTIN) 600 mg, Oral, 3 times daily glucose blood (Innovate/ProtectTouch Verio) test strip USE TO TEST BLOOD [...] History: Diagnosis Date Acute hypoxemic respiratory failure ([facility]) Acute on chronic respiratory failure with hypercapnia ([facility]) AMY (acute kidney injury) ([facility]) Arthritis Asthma Cataract Chronic kidney disease, stage 3b ([facility]) ([facility] Diabetes ([facility] Diabetes mellitus with neuropathy ([facility]) Dietary counseling and surveillance Dry eyes GERD (gastroesophageal reflux disease) Hypertension ([facility]) Lymphedema of both lower extremities 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 mellitus ([facility]) Morbid obesity with body mass index (BMI) of 40.0 to 49.9 ([facility]) Onychomycosis Pneumonia 06/19/2024 [facility] (pulmonary valve disease) Type 2 diabetes mellitus with hyperglycemia ([facility]) Vitamin D deficiency, unspecified Past Surgical [...] hyperglycemia, with long-term current use of insulin ([facility]) - gabapentin (Neurontin) 600 MG tablet; [...] 3 times a day. Insulin long-term use ([facility]) Vitamin D deficiency Encounter for dietary consultation Hyperlipemia, mixed ([facility]) Primary hypertension ([facility]) Follow up in about 6 months (around 06/27/2025). documented in this encounter [facility] 12-21-2024 Hospital Discharge instructions [...] concerns. Where to find more information The [place] Diabetes [employer]: diabetes.org The Association of Diabetes [...] provider. Document Revised: 06/23/2023 Document Reviewed: 06/23/2023 [employer] Patient Education 2023 [employer] 12/21/2024 14:26:35 Correction Insulin Correction Insulin Correction [...] vacation, changing your diet, or holidays. ?New rrno-rcl-rmrpdnj or prescription medicines. ?Illness, stress, or anxiety. [...] provider. Document Revised: 08/12/2021 Document Reviewed: 08/12/2021 [employer] Patient Education 2023 [employer] 12/21/2024 14:25:51 Diabetic Neuropathy Diabetic Neuropathy Diabetic [...] provider. Document Revised: 12/17/2020 Document Reviewed: 12/17/2020 [employer] Patient Education 2023 [employer] Follow Up Care 12/20/2024 13:30:13 With:KAYLA SWEENEY Address: [address] [place] [address]- Business (1) When: Unknown Comments:Follow as scheduled in December 2024 With:Mounika Brooke Address: [place] [address]- Business (1) When:7 to 10 days Comments:Call [...] 3rd toes, and hypertension who presented to [facility], ER with chief complaint of left [...] he has not picked up from his white metal corrosion proofer yet. His glucose was slowly improving with [...] losartan, which I confirmed he has with [facility] Refilled glucometer, test strips, lancets???confirmed with [facility] that they can fill this and his [...] defer management of his diabetes to his white metal corrosion proofer if he is compliant with follow-up. He [...] no tenderness Eye (more content not included)... [facility] Comment on above: Result Comment: Elec tronically Signed By: Toni Gutierrez III, DO.br\Date and Time Signed: 12/21/24 14:44 EDT 12-21-2024 Evaluation + Plan note Extrac maria guadalupe from: Title:Discharge Note Author:Carmela Gutierrez III, DO Date:12/21/24 Discharge Diet(s): Regular ( 12/21/24 14:24:00) Prescriptions Glucose Kit, See Instructions HumuLIN R KwikPen (Concentrated) human recombinant 500 units/mL subcutaneous solution, See Instructions, 1 refills Pen Needle 31G x 6mm, See Instructions, 1 refills Robaxin-750 oral tablet, 750 mg= 1 tab(s), Oral, TID Home gabapentin 600 mg Tab, 600 mg= 1 tab(s), Oral, TID With When Contact Information KAYLA SWEENEY [address], [address] [place] [address]- Business (1) Additional Instructions: Follow as scheduled in December 2024 Mounika Brooke Within 7 to [address] [place] [place] [address]- Business (1) Additional Instructions: Call for followup [...] 3rd toes, and hypertension who presented to [facility] with chief complaint of left leg spasms [...] August 2024. Follows with Dr. Sweeney in [place] Status post 2 L IV fluid bolus [...] Panel Initial Hospital Care/Day Moderate 55 Minutes 28886 2. Leg muscle spasm (M62.838: Other muscle [...] state. Recommend weight loss. Defer to his white metal corrosion proofer to ensure is well versed in therapies [...] BID, # 20 cap(s), Refills(s) 0, Pharmacy: [id number], 183, cm, 06/23/24 13:45:00 EST, Height/Length Dosing, [...] FWW when leg spasms occur. Pt scored 18/24 on AM-PAC 6 clicks mobility assessment. Pt reports that his home environment is accessible and he has family support to visit him throughout the week. At this time, PT recommends discharge with Home Health PT to improve mobility level and reduce risk of future falls. Will continue to follow while inpatient.[facility]05-03-2025 NoteInterdisciplinary Note - OT Pt is seen this date for OT evaluation. [facility] score: 20. pt presents with ability to complete functional transfers and short mobility at CGA level with FWW for support, limited by spasms behind L knee, and decreased activity tolerance. OT to continue to follow for treatment. Recommending HH atd/c.[facility]05-02-2025 NoteHistory and Physical Chief Complaint pt. c/o [...] 3rd toes, and hypertension who presented to [facility], with chief complaint of left leg [...] confusion. He states that he follows with white metal corrosion proofer Dr. Sweeney in [place]. He states that he only takes insulin, [...] he has extra insulin pens in his mondge available to him. He was concerned about [...] 6.2 E9/L (12/20/24 1 (more content not included)...[facility]Result Comment: Electronically Signed By: Toni Gutierrez III, DO\.samir\Date and Time Signed: 12/20/24 19:04 [id number] NoteED Patient Education Note Endocrinology Hyperglycemia Hyperglycemia [...] instructions at home: General instructions ??? Take vddm-xhu-ppelvkc and prescription medicines only as told by [...] need help with this (more content not included)...[facility]04-30-2025 History of Present illness Narrative* Mone Mcguire, [...] notes on w/c assessment documented in this encounterMineral Area Regional Medical CenterQgepnkdmtm50-90-0234 Telephone encounter Note* Telephone Encounter - Cooper Bradford - 12/10/2024 1:35 PM EDT [facility] He stopped in office to Pt is in need of a chair, there is no note added in the last office visit could that be added to the note. He should be seen next week unless he answers his phone today. [facility] CenterAjptwlauvs36-01-2216 Miscellaneous Notes* Telephone Encounter - Cooper Bradford - 12/10/2024 1:35 PM EDT [facility] He stopped in office to Pt is in need of a chair, there is no note added in the last office visit could that be added to the note. He should be seen next week unless he answers his phone today. documented in this encounterMitchell [place] [id number] History of Present illness Narrative* Mounika Brooke [...] reconciliation was performed as indicated via the [employer] as Reviewed timestamp. Flowsheet Row Patient Outreach from 12/04/2024 in [facility] with Kristi Canales LPN Hospital Information ED, Hospital or Retirement Facility Discharge? ED Patient has been contacted within 2 days of being seen in the ED Yes Diagnosis Hyperglycemic, Bronchitis Discharge Date 12/02/24 [Left AMA] Discharged To: Home Setting Discharge Hospital [facility] Engagement Call Start Time 0940 Admission [...] diabetes mellitus with diabetic chronic kidney disease (CMS/HCC) Chronic kidney disease, stage 3b (HCC) (CMS/HCC) Essential (primary) hypertension (CMS/HCC) Acquired absence of left foot (CMS/HCC) Reviewed ED course with pt. Encouraged pt to continue medications as prescribed. No changes in chronic medications. Encouraged continued follow up with specialists. Due to weakness and difficulty walking, discussed need for further assistance. Follow up if symptoms worsen or fail to improve. documented in this encounterMineral Area Regional Medical CenterEvyskgzang94-13-3861 Hospital Discharge instructions Patient Education 12/02/2024 15:24:12 [...] condition. Follow these instructions at home: Take kpmn-env-gtvlwao and prescription medicines only as told by [...] and water are not available, use hand magazine hand. Avoid contact with people who have cold [...] it is easier to cough up. Take hotb-pjs-qdjaeud and prescription medicines only as told by [...] provider. Document Revised: 11/17/2022 Document Reviewed: 12/08/2021 [employer] Patient Education 2023 [employer] 12/02/2024 15:24:12 Type 2 Diabetes Mellitus, Self-Care, Adult, Cdwq-ud-Ujuv Type 2 Diabetes Mellitus, Self-Care, Adult When [...] tell you how to do this. Take gojt-xhd-slftnrm and prescription medicines only as told by [...] for cuts, bruises, redness, blisters, or sores. [place] your teeth and gums two times a [...] more information about diabetes, please go to: [place] [employer] Association: www.diabetes.org [place] [employer] of Diabetes Care and Education Specialists: [...] provider. Document Revised: 11/01/2021 Document Reviewed: 11/01/2021 [employer] Patient Education 2023 [employer] 12/02/2024 15:24:12 Hyperglycemia Hyperglycemia Hyperglycemia occurs when [...] these instructions at home: General instructions Take chyf-lhg-gpofcfk and prescription medicines only as told by [...] alert jewelry. Where to find more information [place] [employer]: www.diabetes.org Contact a health care [...] provider. Document Revised: 05/20/2021 Document Reviewed: 05/21/2021 [employer] Patient Education 2023 [employer] Follow Up Care 12/02/2024 12:36:28 With:Mounika Brooke Address: [address] [place] [address]- Business (1) When:12/05/2024 15:08:13 Comments:Call for diagnosis [...] you how to do this. ??? Take jiii-wtz-hlxssda and prescription medicines only as told by [...] mL), one 5 oz (more content not included)...[facility]01-15-2025 History of Present illness Narrative* Kayla Sweeney [...] twice a day. Blood sugar in our ldhgai328; A1C 11. SUBJECTIVE: MEDICATIONS: Current Outpatient Medications Medication Instructions albuterol HFA 90 mcg/act inhaler 2 puffs, Every 4 hours PRN amLODIPine (Norvasc) 10 MG tablet 1 tablet, Daily atorvastatin (LIPITOR) 40 mg, Every 24 hours Continuous Blood Gluc Special Shopper (FreeStyle Sage 3 [place]) device 1 each, Does not apply, Continuous [...] History: Diagnosis Date Acute hypoxemic respiratory failure ([facility]) Acute on chronic respiratory failure with hypercapnia ([facility]) AMY (acute kidney injury) ([facility]) Arthritis Asthma ([facility]) Cataract Chronic kidney disease, stage 3b (HCC) ([facility]) Diabetes ([facility]) Diabetes mellitus with neuropathy ([facility]) Dietary counseling and surveillance Dry eyes GERD (gastroesophageal reflux disease) Hypertension ([facility]) Lymphedema of both lower extremities 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 (pulmonary valve disease) Type 2 diabetes mellitus with hyperglycemia ([facility]) Vitamin D deficiency, unspecified Past Surgical History: [...] 3 months (around 12/03/2024). documented in this encounterMineral Area Regional Medical CenterAcginlsbiq65-31-4458 Telephone encounter Note* Telephone Encounter - Mounika Brooke MD - 08/06/2024 10:26 AM EST Ok to send [facility] CenterArzbblsuzl28-02-9637 Miscellaneous Notes* Telephone Encounter - Mounika Brooke MD - 08/06/2024 10:26 AM EST Ok to send * Telephone Encounter - Cooper Bradford - 08/06/2024 8:48 AM EST [facility] called they need this information sent for to them for the Referral on the Hyperbaric Oxygen Treatment A1C, pvr, and last 30day of notes on the wound Please send to fax [phone] to [facility] documented in this encounterMineral Area Regional Medical CenterBxivvcsgzi13-18-9118 Telephone encounter Note* Telephone Encounter - Cooper Bradford - 08/06/2024 8:48 AM EST [facility] called they need this information sent for to them for the Referral on the Hyperbaric Oxygen Treatment A1C, pvr, and last 30day of notes on the wound Please send to fax [phone] to [facility] CenterZixofmtnib30-67-2822 NoteTime Out 07/22/2024. 3:03 PM. Confirmed correct patient, procedure, site, and patient consented. Anesthesia Topical anesthesia was used. Anesthetic medications included Proparacaine 0.5%. Procedure Preparation included 5% betadine to ocular surface. A 30 gauge needle was used. Injection: 0.3 mg ranibizumab 0.3 MG/0.05ML Route: Intravitreal, Site: Left Eye [facility]: [id number], Lot: [id number], Expiration date: 04/29/2026, Waste: 0 mL Post-op [...] with increased pain, redness, decreased vision or concerns.[facility] CenterQmmhhrrkfg24-38-4873 History of Present illness Narrative* Perlita Meeks MD - 07/22/2024 2:15 PM EST Assessment/Plan documented in this encounterMineral Area Regional Medical CenterKkgohwkynx17-04-2981 History of Present illness Narrative* Kayla Sweeney [...] twice a day. Blood sugar in our ehdkhl278; A1C 11. SUBJECTIVE: MEDICATIONS: Current Outpatient Medications Medication Instructions albuterol HFA 90 mcg/act inhaler 2 puffs, Every 4 hours PRN atorvastatin (LIPITOR) 40 mg, Every 24 hours Continuous Blood Gluc Special Shopper (FreeStyle Sage 3 [place]) device 1 each, Does not apply, Continuous [...] History: Diagnosis Date Acute hypoxemic respiratory failure ([facility]) Acute on chronic respiratory failure with hypercapnia ([facility]) AMY (acute kidney injury) ([facility]) Arthritis Asthma ([facility]) Cataract Chronic kidney disease, stage 3b (HCC) ([facility]) Diabetes ([facility] Diabetes mellitus with neuropathy ([facility]) Dry eyes GERD (gastroesophageal reflux disease) Hypertension ([facility]) Lymphedema of both lower extremities 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 (pulmonary valve disease) Past Surgical History: [...] hyperglycemia, with long-term current use of insulin ([facility]) - POCT glucose manually resulted - insulin [...] Jentadueto2.12/999 twice a day. Insulin long-term use ([facility]) Vitamin D deficiency Encounter for dietary consultation Diet and exercise reviewed with the patient Hyperlipemia, mixed ([facility]) Primary hypertension ([facility]) Class 2 severe obesity due to excess calories with serious comorbidity and body mass index (BMI) of38.0 to 38.9 in adult ([facility]) Follow up in about 6 weeks (around 08/26/2024). documented in this encounterMineral Area Regional Medical [id number] History of Present illness Narrative* Mounika Brooke [...] Flowsheet Row Office Visit from 07/11/2024 in [facility] with Mounika Brooke MD Hospital Information ED, Hospital or Retirement Facility Discharge? ED Patient has been contacted within 1 week of being seen in the ED Yes Discharge Date 07/09/24 Discharged To: Home Setting Discharge [facility] Engagement Admission Date 07/09/24 Medications Discharge [...] No follow-ups on file. documented in this encounterMineral Area Regional Medical CenterFqoybxlxpr70-01-9706 Hospital Discharge instructions Patient Education 07/09/2024 16:21:24 [...] told by your health care provider. Take ywna-vac-mivhfqk and prescription medicines only as told by [...] provider. Document Revised: 04/14/2022 Document Reviewed: 04/14/2022 [employer] Patient Education 2023 [employer] Follow Up Care 07/09/2024 14:36:54 With:Zak Quiñones Address: [address] [place], [place] [address] Business (1) When:07/12/2024 16:10:31 [facility] [...] by your health care provider. ??? Take mjqd-lie-pgfsyrc and prescription medicines only as told by [...] (compression), and elevatingthe are (more content not included)...[facility]11-19-2024 Evaluation + Plan noteExtracted from: Title:ED Note Author:Jesus Grijalva PA-C te:07/09/24 Left shoulder pain (M25.512: Pain in left shoulder) Tendinitis (M77.9: Enthesopathy, unspecified) Ordered: acetaminophen-oxycodone, 1 tab(s), Oral, q6hr as needed for pain for 3 day(s), 10 tab(s), Refill(s) 0, [facility] #[id number], 183, cm, 07/09/24 14:44:00 EST, Height/Length Dosing, 132.4, kg, 07/09/24 14:44:00 EST, Weight Dosing Orders: acetaminophen-oxycodone, 1 tab(s), Tab, Oral, Once, Stop date 07/09/24 15:01:00 EST, STAT, Start date 07/09/24 15:01:00 EST Apply Sling XR Shoulder Complete Right Future Appointments Appointment Date:09/04/2024 03:15:00 PM Scheduled Provider:Taz THOMAS MD Location:[facility] Appointment Type:URO Office Visit [facility] [...] timestamp. Flowsheet Row Documentation from 06/25/2024 in [facility] with Mary Alice Fortune MA Hospital Information ED, Hospital or Retirement Facility Discharge? ED Patient has been contacted within 1 week of being seen in the ED Yes Diagnosis Pneumonia Discharge Date 06/23/24 Discharged To: Home Setting Discharge [facility] Engagement Admission Date 06/23/24 Medications Discharge [...] continue to monitor weight BMI 40.0-44.9, adult ([facility]) Follow up if symptoms worsen or fail to improve. documented in this encounterMineral Area Regional Medical CenterPxkndtbpss44-06-2066 Telephone encounter Note* Telephone Encounter - HARPAL Barnes - 06/24/2024 11:07 AM EST Ok reviewed and we discussed at visit to try to get an earlier appt or talk with Dr. Murray staff [facility] CenterLvqoerwrle43-40-4641 Miscellaneous Notes* Telephone Encounter - HARPAL Barnes [...] as soon as possible? documented in this encounterMineral Area Regional Medical CenterVszwfuubte12-40-2921 Telephone encounter Note* Telephone Encounter - Suzanna Smith MA - 06/24/2024 10:28 AM EST Patient is currently scheduled to see Dr. Sweeney 07-15-2024. [facility] CenterMcfecofdnw09-27-5378 Telephone encounter Note* Telephone Encounter - HARPAL Barnes - 06/24/2024 8:37 AM EST Please call patient I see he was in ER and diagnosed with pneumonia however his hgba1c was 14 and Iwanted to see if he made appt to see Dr. Murray as soon as possible? [facility] CenterSkadzonlih54-05-0200 Hospital Discharge instructions Patient Education 06/23/2024 14:01:17 Community-Acquired Pneumonia, Adult, Ogbj-jo-Kocn Community-Acquired Pneumonia, Adult Pneumonia is an infection [...] Follow these instructions at home: Medicines Take qpgp-stx-tvubblp and prescription medicines only as told by [...] cannot use soap and water, use hand magazine hand. Contact a doctor if: You have a [...] provider. Document Revised: 10/05/2022 Document Reviewed: 10/05/2022 [employer] Patient Education 2023 [employer] 06/23/2024 14:01:17 Rib Contusion Rib Contusion A [...] risk for lung collapse and pneumonia. Medicines. Njpy-txn-kqedgam or prescription medicines may be given to control pain. Injection of a numbing medicine around the nerve near your injury (nerve block). Follow these instructions at home: Medicines Take yymz-xli-igpeqbk and prescription medicines only as told by your health care provider. Ask your health care provider if the medicine prescribed to you: ?Requires you to avoid driving or using machinery. ?Can cause constipation. You may need to take these actions to prevent or treat constipation: ?Drink enough fluid to keep your urine pale yellow. ?Take ezrk-pio-yzzykts or prescription medicines. ?Eat foods that are [...] provider. Document Revised: 11/11/2020 Document Reviewed: 11/11/2020 [employer] Patient Education 2023 [employer] Follow Up Care 06/23/2024 13:38:04 With:Mounika Brooke Address: [place] [place] [address]- Business (1) When:06/26/2024 13:54:07 Comments:Call for diagnosis [...] these instructions at home: Medicines ??? Take wdab-hwg-ehlukiz and prescription medicines only as told by [...] cannot use soap and water, use hand magazine hand. Contact a doctor if: ??? You have [...] lungs. ??? Community-acquired pneumonia (more content not included)...[facility]11-03-2024 Evaluation + Plan noteExtracted from: Title:ED Note Author:Paddy Betancourt PA-C te:06/23/24 Contusion of rib on left [facility] (S20.212A: Contusion of left front wall of thorax, initial encounter) Pneumonia (J18.9: Pneumonia, unspecified organism) Orders: acetaminophen-oxycodone, 1 tab(s), Oral, q6hr for pain for 3 day(s), 12 tab(s), Refill(s) 0, [facility] #[id number], 183, cm, 06/23/24 13:45:00 EST, Height/Length Dosing, 143, kg, 06/23/24 13:45:00 EST, Weight Dosing doxycycline, 100 mg = 1 cap(s), Oral, BID, # 20 cap(s), Refills(s) 0, Pharmacy: [facility] #[id number], 183, cm, 06/23/24 13:45:00 EST, Height/Length Dosing, 143, kg, 06/23/24 13:45:00 EST, Weight Dosing Future Appointments Appointment Date:09/04/2024 03:15:00 PM Scheduled Provider:Taz THOMAS MD Location:[facility] Appointment Type:URO Office Visit [facility] [...] He has an upcoming appointment with his white metal corrosion proofer, Dr. Sweeney. ALLERGIES He is allergic to PENICILLIN. MEDICATIONS: Current Outpatient Medications Medication Instructions albuterol HFA 90 mcg/act inhaler 2 puffs, Every 4 hours PRN atorvastatin (LIPITOR) 40 mg, Every 24 hours Continuous Blood Gluc Special Shopper (FreeStyle Sage 3 [place]) device 1 each, Does not apply, Continuous [...] He is advised to consult with his white metal corrosion proofer, Dr. Sweeney, regarding his elevated blood sugar [...] needles has been renewed and sent to [facility]. Assessment/Plan Problem List Items Addressed This [...] Influenza Vaccine (1) 04/21/2024 documented in this encounterMineral Area Regional Medical CenterVldsgemgwe16-53-8232 NoteTime Out 05/22/2024. 2:41 PM. Confirmed correct patient, procedure, site, and patient consented. Anesthesia Topical anesthesia was used. Anesthetic medications included Lidocaine 2%, Proparacaine 0.5%. Procedure Preparation included 5% betadine to ocular surface, eyelid speculum. Injection: 0.3 mg ranibizumab 0.3 MG/0.05ML Route: Intravitreal, Site: Left Eye [facility]: [id number], Lot: [id number], Expiration date: 04/29/2026, Waste: 0 mL Post-op [...] with increased pain, redness, decreased vision or concerns.[facility] CenterNqckqbpwvc63-71-5195 History of Present illness Narrative* PEDRO PABLO Her - 05/22/2024 2:00 PM EDT Images from the original note were not included. 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 Can we help with this [facility] [id number] Miscellaneous Notes* Telephone Encounter - Mounika Brooke MD - 04/29/2024 2:53 PM EDT Pt has at home oxygen - would benefit from portable oxygen. Can we help with this documented in this [facility]09-09-2024 History of Present illness Narrative* Mounika Brooke [...] at the same time. Continuous Blood Gluc Special Shopper (FreeStyle Sage 3 [place]) device 1 each continuously 1 each 0 [...] retinopathy associated with type 2 diabetes mellitus ([facility]) Encouraged follow up with optho Diabetic neuropathy ([facility]) Stable, continue to monitor. No change in regimen. Gastroesophageal reflux disease Stable, continue to monitor. No change in regimen. Hyperlipidemia ([facility]) Stable, continue to monitor. No change in regimen. Hypertension ([facility]) Stable, continue to monitor. No change in regimen. Long-term insulin use ([facility]) Morbid obesity ([facility]) - continue to monitor weight Restless leg syndrome Currently uncontrolled as pt is out of meds. Refill sent of increased dose Stage 3b chronic kidney disease (HCC) ([facility]) Stable, continue to monitor. No change in regimen. Type 2 diabetes mellitus with hyperglycemia ([facility]) - Uncontrolled, A1c > 13 - encouraged follow up with endo Varicose veins of lower extremity Continue to follow w/ vascular TC (obstructive sleep apnea) Stable, continue to monitor. No change in regimen. Chronic hypoxemic respiratory failure ([facility]) Stable, continue to monitor. No change in regimen. Acute on chronic respiratory failure with hypoxia and hypercapnia ([facility]) Stable, continue to monitor. No change in regimen. Discussed concerning sx to monitor for. Continue oxygen use - pt would benefit from portable oxygen Obesity hypoventilation syndrome ([facility]) Other Visit Diagnoses Encounter for Medicare annual wellness exam - Primary RLS (restless legs syndrome) Relevant Medications rOPINIRole (Requip) 2 MG tablet Oxygen dependent BMI 40.0-44.9, adult ([facility]) The following health maintenance schedule was [...] placed in this encounter. documented in this encounterMineral Area Regional Medical [id number] NoteTime Out 04/23/2024. 11:05 AM. Confirmed correct patient, procedure, site, and patient consented. Anesthesia Topical anesthesia was used. Anesthetic medications included Lidocaine 2%, Proparacaine 0.5%. Procedure Preparation included 5% betadine to ocular surface, eyelid speculum. Injection: 0.3 mg ranibizumab 0.3 MG/0.05ML Route: Intravitreal, Site: Left Eye [facility]: 35062-403-24, Lot: [id number], Expiration date: 04/29/2026, Waste: 0 mL Post-op [...] with increased pain, redness, decreased vision or concerns.[facility] [id number] History of Present illness Narrative* Perlita Meeks MD - 04/23/2024 10:45 AM EDT Assessment/Plan documented in this encounterMineral Area Regional Medical [id number] History of Present illness Narrative* Perlita Meeks MD - 04/15/2024 2:30 PM EDT Assessment/Plan begin anti vegf documented in this encounterMineral Area Regional Medical [id number] Hospital Discharge instructions Follow Up Care 02/28/2024 08:07:26 With:MARTHA LYMAN, Taz Abraham, URL Address: [address] [place] [address] [place] [phone]- When: Unknown [facility] 07-10-2024 Hospital Discharge instructions Patient Education 02/28/2024 [...] urethra. Follow these instructions at home: Take ppea-ans-ygketgj and prescription medicines only as told by [...] provider. Document Revised: 02/23/2022 Document Reviewed: 02/23/2022 [employer] Patient Education 2022 [employer] Follow Up Care 02/05/2024 13:59:39 With:MARTHA LYMAN, Taz Abraham, URL Address: [address] [place] [address]- When: Unknown [facility] 06-17-2024 Hospital Discharge instructions Patient Education 02/05/2024 [...] are called bladder spasms and are common afterthe procedure. It is normal to have some [...] Care 11/20/2023 14:00:17 With:Taz THOMAS Address: [address] [phone] [facility] (1) When: Unknown Comments:Please arrange for a follow-up next week so we can remove your catheter for a voiding trial.Some discharge instructions have been provided.Push fluids to keep the urine clear. [facility]06-17-2024 Note [id number]#1.00TIFLars [facility] 01-15-2024 Hospital Discharge instructions Patient Education [...] provider. Document Revised: 10/27/2021 Document Reviewed: 07/23/2021 [employer] Patient Education 2021 [employer] Follow Up Care 01/15/2024 16:18:08 With:REID BROOKE Address: [facility] [address] [address] Business (1) When:Within 3 Day(s) [facility]04-04-2024 NoteHNO ID: [id number] Author: ESAU TRUONG APRN.BATHING [employer]IT [employer]KER Service: ? Author Type: Nurse Specialist Type: Progress Notes Filed: 11/29/2023 07:04 Note Text: [facility] NOTE NAME: NICOLE LORA [facility] NO.: [id number] DATE OF SERVICE: 11/23/2023 ATTENDING PHYSICIAN: MO Yip [facility] Chart Note REASON FOR VISIT: The patient is a resident of [facility]. This is a skilled visit for [...] sliding scale. DICTATED BY: MO Yip/SUSYT JOB# [id number] [facility]04-04-2024 History of Present illness Narrative* Esau Truong APRN.[place] - 11/23/2023 12:00 AM EDT [facility] NOTE NAME: NICOLE LORA [facility] NO.: [id number] DATE OF SERVICE: 11/23/2023 ATTENDING PHYSICIAN: MO Yip [facility] Chart Note REASON FOR VISIT: The patient is a resident of [facility]. This is a skilled visit for COPD with respiratory failure history and other medical concerns. Upon entering theroo, found the patient calm, alert, sitting in bed. The patient just completed morning meal. The patient does not appear to be in distress or discomfort. The patient states feels well today. [facility] has been working with therapy and feels good. The patient states has no pain, no cough, no shortnessof breath. No fever, chills, or nausea. States his appetite is good and bowels have been moving. [facility] has been drinking fluids. Denies urinary symptoms. [...] sliding scale. DICTATED BY: MO Yip/MARCIA JOB# [id number] [facility] Evaluation + Plan note Extracted from: Title:HOPD visit Author:Taz THOMAS MD Date: 11/20/23 Impression and Plan Assessment and Plan: Diagnosis: BPH with obstruction/lower urinary tract symptoms (AXO62-OV N40.1, Billing Diagnosis, Medical), Other obstructive and reflux uropathy (WKP56-ZQ N13.8, Discharge, Medical), Feeling of incomplete bladder emptying (LAE40-LY R39.14, Billing Diagnosis, Medical), Urinary retention (FUH34-VY R33.9, Billing Diagnosis, Medical). Additional Plan of [...] Appointments Appointment Date:01/31/2024 10:30:00 AM Scheduled Provider: Location:[facility] Appointment Type:Urology CALL PAT FT Appointment Date:02/05/2024 01:15:00 PM Scheduled Provider: Location:[facility] Appointment Type:Urology FT Future Scheduled Tests Radiology* XR Chest 2 Views 05/15/23 * XR Chest 2 Views 05/15/23 [facility]04-01-2024 NoteHNO ID: [id number] Author: ALVARO HERRERA, ? Service: ? Author Type: Physician Type: Progress Notes Filed: 11/22/2023 11:38 Note Text: [facility] NOTE NAME: NICOLE LORA [facility] NO.: [id number] DATE OF SERVICE: 11/20/2023 ATTENDING PHYSICIAN: Alvaro Herrera MD [facility] PATIENT HISTORY AND PHYSICAL: HISTORY OF PRESENT ILLNESS: The patient is a 63-year-old male, who is admitted to us from [facility] with a diagnosis of altered mental [...] with hypernatremia and hyperkalemia-we (more content not included)...[facility] 11-20-2023 [id number]#1.00[facility]FK[facility]04-01-2024 [id number]#1.00TIFF [facility]04-01-2024 History of Present illness Narrative* Alvaro Herrera - 11/20/2023 12:00 AM EDT [id number] DATE OF SERVICE: 11/20/2023 ATTENDING PHYSICIAN: Alvaro Herrera MD [facility] PATIENT HISTORY AND PHYSICAL: HISTORY OF PRESENT ILLNESS: The patient is a 63-year-old male, who is admitted to us from [facility] with a diagnosis of altered mental [...] himself. DICTATED BY: MD KORI Cho/MARCIA JOB# [id number] [facility] documented in this encounterK[facility]03-29-2024 Progress note Author Hood Zacarias [facility] November 17, 2023 12:18pm Note Date/Time November 17, 2023 12: 18pm [facility] [address] [place] [address] Nephrology Progress Note Signed Patient: Nicole Lora MR#: [id number] 29 : 1960 Acct:[id number] Age/Sex: 63 / M Adm Date: 4 Loc: Room: [address] [place] [address] Type: ADM IN Attending Dr: Manish Fu MD Copies to: ~ Date of Service: 11/17/2023 Subjective Subjective Narrative: This is a 63-year-old male with a medical history of CKD, DM, HTN, TC, COPD, CHF was transferred from [facility] for shortness of breath and hypercapnic respiratory failure. Patient was admitted at [facility] on September 2023 for COPD and CHF. During hospitalization he wasalso found to have AMY on CKD due to the cardiorenal syndrome. His renal function improved with diuresis. Patient was also found to have urine retentionand had Elliott catheter. Patient was readmitted at [facility] and his diuretic regimen was adjusted. His labs in ER showed AMY with serum creatinine 4.9 mg/dL and hyperkalemia with serum potassium 5.3 mmol/L and anion gap of 18. Patient ABG showed pH 7.25 pCO2 58 oxygen saturation 57. He was placed on BiPAP briefly. Patient on arrival at [facility] had ABG which showed pH 7.19, pCO2 [...] 3 Ml Ampul.Neb) 3 ml INHALATION QID.RESP [facility] Stop: 11/12/24 19:59 Last Admin: 11/17/23 08:11 Dose: 3 ml Atorvastatin Calcium (Atorvastatin 40 Mg Tablet) 40 mg PO QHS [facility] Stop: 11/12/24 21:59 Last Admin: 11/16/23 21:29 Dose: 40 mg Budesonide (Budesonide 0.5 Mg/2 Ml Ampul.Neb) 0.5 mg INHALATION BID [facility] Stop: 11/12/24 20:59 Last Admin: 11/17/23 08:11 Dose: 0.5 mg Dextrose (Dextrose 50% In Water 25 Gm/50 Ml Syringe) 0 gm IV-PUSH PRN PRN PRN Reason: Hypoglycemia Stop: 11/10/24 20:56 Duloxetine HCl (Duloxetine 60 Mg Capsule.Dr) 60 mg PO DAILY [facility] Stop: 11/13/24 08:59 Last Admin: 11/17/23 09:13 Dose: 60 mg Gabapentin (Gabapentin 300 Mg Capsule) 300 mg PO QHS [facility] Stop: 11/14/24 21:59 Last Admin: 11/16/23 21:02 Dose: Not Given Glucose (Dextrose 40% Gel 15 Gm Tube) 0 gm PO PRN PRN PRN Reason: Hypoglycemia Stop: 11/10/24 20:56 Last Admin: 11/12/23 17:38 Dose: 30 gm Guaifenesin (Guaifenesin 600 Mg Tab.Er.12h) 1,200 mg PO BID [facility] Stop: 11/12/24 20:59 Last Admin: 11/17/23 09:13 Dose: 1,200 mg Hydralazine HCl (Hydralazine 10 Mg Tablet) 10 mg PO BID [facility] Stop: 11/12/24 20:59 Last Admin: 11/17/23 09:13 Dose: 10 mg Fluconazole (Diflucan) 200 mg in 100 mls @ 100 mls/hr IV Q24H [facility] Last Admin: 11/16/23 14:09 Dose: 100 mls/hr Ceftriaxone Sodium (Rocephin) 1 gm in 50 mls @ 100 mls/hr IV Q24H [facility] Last Admin: 11/16/23 13:20 Dose: 100 mls/hr Insulin Aspart (Insulin Aspart 300 Units/3 Ml Insuln.Pen) 0 units SUBCUT TID.WM.[facility]; Protocol Stop: 11/10/24 21:59 Last Admin: 11/17/23 09:13 Dose: Not Given Insulin Glargine (Insulin Glargine 300 Units/3 Ml Insuln.Pen) 35 units SUBCUT QHS JIMMIE Stop: 11/10/24 21:59 Last Admin: 11/16/23 21:31 [...] 40 Mg Tablet.Dr) 40 mg PO DAILY [facility] Stop: 11/13/24 08:59 Last Admin: 11/17/23 09:13 Dose: 40 mg Sennosides (Sennosides 8.6 Mg Tablet) 1 tab PO BID [facility] Stop: 11/10/24 20:59 Last Admin: 11/17/23 09:13 Dose: 1 tab Tamsulosin HCl (Tamsulosin 0.4 Mg Cap.Er.24h) 0.4 mg PO DAILY [facility] Stop: 11/13/24 08:59 Last Admin: 11/17/23 09:13 Dose: 0.4 mg Torsemide (Torsemide 20 Mg Tablet) 40 mg PO DAILY@0800 [facility] Stop: 11/13/24 09:44 Last Admin: 11/17/23 09:13 [...] SNF placement. Documented By: Hood Zacarias MD 11/17/231209 Signed By: <Electronically signed by MD Hood Zacarias> 11/17/23 1218 [facility] Work Phone: 1(631) 837-120403-28-2024 Progress note Author Manish Fu [facility] November 16, 2023 2:26pm Note Date/Time November 16, 2023 1:4 2pm [facility] [address] [place] [address] Hospitalist Progress Note Signed Patient: Nicole Lora MR#: [id number] 29 : 1960 Acct:[id number] Age/Sex: 63 / M Adm Date: 4 Loc: 4 Room: [address] [place] [address] Type: ADM IN Attending Dr: Manish Fu MD Copies to: ~ Date of Service: 11/16/2023 Subjective Subjective Narrative: Mental status significantly improved today. Patient notes that he is feeling a lot better, and actually request to go home. I did explain that he has been admitted to the hospital multiple times and needs further care at halfway facility. He is agreeable to this plan [...] 11/14/23 09:00 11/16/23 09:08 Duloxetine 60 Mg Capsule. PO 11/13/24 08:59 60 mg DAILY JIMMIE [...] 1340 Signed By: <Electronically signed by Manish uF MD> 11/16/23 2865 [facility] Work Phone: 1(681) 465-212503-28-2024 Progress note Author Hood Zacarias [facility] November 16, 2023 12:15pm Note Date/Time November 16, 2023 12: 15pm [facility] [address] [place] [address] Nephrology Progress Note Signed Patient: Nicole Lora MR#: [id number] [birth year] : 1960 Acct:[id number] Age/Sex: 63 / M Adm Date: 4 Loc: Room: [address] [place] [address] Type: ADM IN Attending Dr: Manish Fu MD Copies to: ~ Date of Service: 11/16/2023 Subjective Subjective Narrative: This is a 63-year-old male with a medical history of CKD, DM, HTN, TC, COPD, CHF was transferred from [facility] for shortness of breath and hypercapnic respiratory failure. Patient was admitted at [facility] on September 2023 for COPD and CHF. During hospitalization he wasalso found to have AMY on CKD due to the cardiorenal syndrome. His renal function improved with diuresis. Patient was also found to have urine retentionand had Elliott catheter. Patient was readmitted at [facility] and his diuretic regimen was adjusted. His labs in ER showed AMY with serum creatinine 4.9 mg/dL and hyperkalemia with serum potassium 5.3 mmol/L and anion gap of 18. Patient ABG showed pH 7.25 pCO2 58 oxygen saturation 57. He was placed on BiPAP briefly. Patient on arrival at [facility] had ABG which showed pH 7.19, pCO2 [...] 350 100 / 100 Output Total 2074 3825 / 3825 5550 / 5550 [...] 40 Mg Tablet) 40 mg PO QHS [facility] Stop: 11/12/24 21:59 Last Admin: 11/15/23 21:12 Dose: 40 mg Budesonide (Budesonide 0.5 Mg/2 Ml Ampul.Neb) 0.5 mg INHALATION BID [facility] Stop: 11/12/24 20:59 Last Admin: 11/16/23 07:40 Dose: 0.5 mg Dextrose (Dextrose 50% In Water 25 Gm/50 Ml Syringe) 0 gm IV-PUSH PRN PRN PRN Reason: Hypoglycemia Stop: 11/10/24 20:56 Duloxetine HCl (Duloxetine 60 Mg Capsule.Dr) 60 mg PO DAILY [facility] Stop: 11/13/24 08:59 Last Admin: 11/16/23 09:08 Dose: 60 mg Gabapentin (Gabapentin 300 Mg Capsule) 300 mg PO QHS [facility] Stop: 11/14/24 21:59 Last Admin: 11/15/23 21:13 Dose: 300 mg Glucose (Dextrose 40% Gel 15 Gm Tube) 0 gm PO PRN PRN PRN Reason: Hypoglycemia Stop: 11/10/24 20:56 Last Admin: 11/12/23 17:38 Dose: 30 gm Guaifenesin (Guaifenesin 600 Mg Tab.Er.12h) 1,200 mg PO BID [facility] Stop: 11/12/24 20:59 Last Admin: 11/16/23 09:08 Dose: 1,200 mg Hydralazine HCl (Hydralazine 10 Mg Tablet) 10 mg PO BID [facility] Stop: 11/12/24 20:59 Last Admin: 11/16/23 09:08 Dose: 10 mg Fluconazole (Diflucan) 200 mg in 100 mls @ 100 mls/hr IV Q24H [facility] Last Admin: 11/15/23 18:00 Dose: 100 mls/hr Ceftriaxone Sodium (Rocephin) 1 gm in 50 mls @ 100 mls/hr IV Q24H [facility] Insulin Aspart (Insulin Aspart 300 Units/3 Ml Insuln.Pen) 0 units SUBCUT TID.WM.HS [facility]; Protocol Stop: 11/10/24 21:59 Last Admin: 11/16/23 09:08 Dose: Not Given Insulin Glargine (Insulin Glargine 300 Units/3 Ml Insuln.Pen) 35 units SUBCUT QHS [facility] Stop: 11/10/24 21:59 Last Admin: [...] 40 Mg Tablet.Dr) 40 mg PO DAILY [facility] Stop: 11/13/24 08:59 Last Admin: 11/16/23 09:07 Dose: 40 mg Sennosides (Sennosides 8.6 Mg Tablet) 1 tab PO BID [facility] Stop: 11/10/24 20:59 Last Admin: 11/16/23 09:07 Dose: 1 tab Tamsulosin HCl (Tamsulosin 0.4 Mg Cap.Er.24h) 0.4 mg PO DAILY [facility] Stop: 11/13/24 08:59 Last Admin: 11/16/23 09:08 Dose: 0.4 mg Torsemide (Torsemide 20 Mg Tablet) 40 mg PO DAILY@0800 [facility] Stop: 11/13/24 09:44 Last Admin: 11/16/23 09:08 Dose: 40 mg Allergies Penicillins Allergy (Verified 10/06/23 20:32) Rash Results - Nephrology Labs 11/16/23 04:51 11/16/23 04:51 Labs: 11/16/23 04:51 BUN 55 H Creatinine 1.37 H Radiology Impressions Impressions - last 24 hours: Any impression(s) listed above is documentation that was entered by the reading physician into a diagnostic report(s) for Nicole Jesus Geno. I have reviewed the report(s) and am incorporating any findings in the treatment plan of this patient where applicable. A&P - Nephrology Assessment/Plan (1) Acute kidney injury superimposed on CKD: Assessment/Problem Details: He has MAY possibly due to the ATN in setting [...] placement. Documented By: Hood Zacarias MD 11/16/23 1200 Signed By: <Electronically signed by MD Hood Zacarias> 11/16/23 0888 [facility] Work Phone: 1(878) 997-125703-27-2024 Progress note Author Hood Zacarias [facility] November 15, 2023 1:58pm Note Date/Time November 15, 2023 1:5 8pm [facility] [address] [place] [address] Nephrology Progress Note Signed Patient: Nicole Lora MR#: [id number] 29 : 1960 Acct:[id number] Age/Sex: 63 / M Adm Date: 4 Loc: Room: [address] [place] [address] Type: ADM IN Attending Dr: Manish Fu MD Copies to: ~ Date of Service: 11/15/2023 Subjective Subjective Narrative: This is a 63-year-old male with a medical history of CKD, DM, HTN, TC, COPD, CHF was transferred from [facility] for shortness of breath and hypercapnic respiratory failure. Patient was admitted at [facility] on September 2023 for COPD and CHF. During hospitalization he wasalso found to have AMY on CKD due to the cardiorenal syndrome. His renal function improved with diuresis. Patient was also found to have urine retentionand had Elliott catheter. Patient was readmitted at [facility] and his diuretic regimen was adjusted. His labs in ER showed AMY with serum creatinine 4.9 mg/dL and hyperkalemia with serum potassium 5.3 mmol/L and anion gap of 18. Patient ABG showed pH 7.25 pCO2 58 oxygen saturation 57. He was placed on BiPAP briefly. Patient on arrival at [facility] had ABG which showed pH 7.19, pCO2 [...] 3 Ml Ampul.Neb) 3 ml INHALATION QID.RESP [facility] Stop: 11/12/24 19:59 Last Admin: 11/15/23 11:28 Dose: 3 ml Atorvastatin Calcium (Atorvastatin 40 Mg Tablet) 40 mg PO QHS [facility] Stop: 11/12/24 21:59 Last Admin: 11/14/23 21:10 Dose: 40 mg Budesonide (Budesonide 0.5 Mg/2 Ml Ampul.Neb) 0.5 mg INHALATION BID [facility] Stop: 11/12/24 20:59 Last Admin: 11/15/23 09:00 Dose: 0.5 mg Dextrose (Dextrose 50% In Water 25 Gm/50 Ml Syringe) 0 gm IV-PUSH PRN PRN PRN Reason: Hypoglycemia Stop: 11/10/24 20:56 Duloxetine HCl (Duloxetine 60 Mg Capsule.Dr) 60 mg PO DAILY [facility] Stop: 11/13/24 08:59 Last Admin: 11/15/23 08:14 Dose: 60 mg Gabapentin (Gabapentin 300 Mg Capsule) 300 mg PO QHS [facility] Stop: 11/14/24 21:59 Glucose (Dextrose 40% Gel 15 Gm Tube) 0 gm PO PRN PRN PRN Reason: Hypoglycemia Stop: 11/10/24 20:56 Last Admin: 11/12/23 17:38 Dose: 30 gm Guaifenesin (Guaifenesin 600 Mg Tab.Er.12h) 1,200 mg PO BID [facility] Stop: 11/12/24 20:59 Last Admin: 11/15/23 08:14 Dose: 1,200 mg Hydralazine HCl (Hydralazine 10 Mg Tablet) 10 mg PO BID [facility] Stop: 11/12/24 20:59 Last Admin: 11/15/23 08:14 Dose: 10 mg Fluconazole (Diflucan) 200 mg in 100 mls @ 100 mls/hr IV Q24H [facility] Insulin Aspart (Insulin Aspart 300 Units/3 Ml Insuln.Pen) 0 units SUBCUT TID.WM.HS [facility]; Protocol Stop: 11/10/24 21:59 Last Admin: 11/15/23 08:15 Dose: Not Given Insulin Glargine (Insulin Glargine 300 Units/3 Ml Insuln.Pen) 35 units SUBCUT QHS JIMMIE Stop: 11/10/24 21:59 Last Admin: 11/14/23 21:10 [...] Urine culture from Elliott catheter showed Enterobacter [place] complex and Kaelyn albicans. Patient has indwelling Elliott catheter and he is supposed to follow-up with urology for cystometric and cystoscopy as outpatient. * Check renal function daily monitor input output Documented By: Hood Zacarias MD 11/15/23 8261 Signed By: <Electronically signed by MD Hood Zacarias> 11/15/23 2038 [facility] Work Phone: [phone]) 950-921203-27-2024 Progress note [facility] November 15, 2023 1:27pm Note Date/Time November 15, 2023 12: 20pm [facility] [address] [place] [address] Hospitalist Progress Note Signed Patient: Nicole Lora MR#: [id number] [birth year] : 1960 Acct:[id number] Age/Sex: 63 / M Adm Date: 4 Loc: 4 Room: [address] [place] [address] Type: ADM IN Attending Dr: Manish Fu [...] Insuln.Pen SUBCUT 11/10/24 21:59 Not Given TID.WM.HS [facility] Protocol Insulin Glargine 35 units [...] secondary to volume depletion, post-obstructive etiology -Irrigate Ellitot catheter daily -Restarting torsemide today -Will restart [...] signed by Manish Fu MD> 11/15/23 1327 [facility] Work Phone: 1(780) 934-401103-26-2024 Progress note Author Manish Fu [facility] November 14, 2023 8:19pm Note Date/Time November 14, 2023 8:0 8pm [facility] [address] [place] [address] Hospitalist Progress Note Signed Patient: Nicole Lora MR#: [id number] [birth year] : 1960 Acct:[id number] Age/Sex: 63 / M Adm Date: 4 Loc: 4 Room: [address] [place] [address] Type: ADM IN Attending Dr: Manish Fu [...] 11/14/23 09:00 11/14/23 08:10 Duloxetine 60 Mg Capsule. PO 11/13/24 08:59 60 mg DAILY JIMMIE [...] Insuln.Pen SUBCUT 11/10/24 21:59 Not Given TID.WM.HS [facility] Protocol Insulin Glargine 35 units [...] <Electronically signed by Manish Fu MD> 11/14/232018 [facility] Work Phone: 1(506) 135-256903-26-2024 Progress note Author Emircrow Deann [facility] November 14, 2023 1:34pm Note Date/Time November 14, 2023 1:3 4pm [facility] [address] [place] [address] Nephrology Progress Note Signed Patient: Nicole Lora MR#: [id number] [birth year] : 1960 Acct:[id number] Age/Sex: 63 / M Adm Date: Loc: Room: [address] [place] [address] Type: ADM IN Attending Dr: Manish Fu MD Copies to: ~ Date of Service: 11/14/2023 Subjective Subjective Narrative: This is a 63-year-old male with a medical history of CKD, DM, HTN, TC, COPD, CHF was transferred from [facility] for shortness of breath and hypercapnic respiratory failure. Patient was admitted at [facility] on September 2023 for COPD and CHF. During hospitalization he wasalso found to have AMY on CKD due to the cardiorenal syndrome. His renal function improved with diuresis. Patient was also found to have urine retentionand had Elliott catheter. Patient was readmitted at [facility] and his diuretic regimen was adjusted. His labs in ER showed AMY with serum creatinine 4.9 mg/dL and hyperkalemia with serum potassium 5.3 mmol/L and anion gap of 18. Patient ABG showed pH 7.25 pCO2 58 oxygen saturation 57. He was placed on BiPAP briefly. Patient on arrival at [facility] had ABG which showed pH 7.19, pCO2 [...] QID.RESP JIMMIE Stop: 11/12/24 19:59 Last Admin: 03/26/24 11:46 Dose: 3 ml Atorvastatin Calcium (Atorvastatin 40 Mg Tablet) 40 mg PO QHS [facility] Stop: 11/12/24 21:59 Last Admin: 11/13/23 21:04 Dose: 40 mg Budesonide (Budesonide 0.5 Mg/2 Ml Ampul.Neb) 0.5 mg INHALATION BID [facility] Stop: 11/12/24 20:59 Last Admin: 11/14/23 07:35 Dose: 0.5 mg Dextrose (Dextrose 50% In Water 25 Gm/50 Ml Syringe) 0 gm IV-PUSH PRN PRN PRN Reason: Hypoglycemia Stop: 11/10/24 20:56 Duloxetine HCl (Duloxetine 60 Mg Capsule.Dr) 60 mg PO DAILY [facility] Stop: 11/13/24 08:59 Last Admin: 11/14/23 08:10 Dose: 60 mg Glucose (Dextrose 40% Gel 15 Gm Tube) 0 gm PO PRN PRN PRN Reason: Hypoglycemia Stop: 11/10/24 20:56 Last Admin: 11/12/23 17:38 Dose: 30 gm Guaifenesin (Guaifenesin 600 Mg Tab.Er.12h) 1,200 mg PO BID [facility] Stop: 11/12/24 20:59 Last Admin: 11/14/23 08:10 Dose: 1,200 mg Hydralazine HCl (Hydralazine 10 Mg Tablet) 10 mg PO BID [facility] Stop: 11/12/24 20:59 Last Admin: 11/14/23 08:10 Dose: 10 mg Ceftriaxone Sodium (Rocephin) 2 gm in 50 mls @ 100 mls/hr IV Q24H [facility] Stop: 11/15/23 08:29 Last Admin: 11/14/23 08:11 Dose: 100 mls/hr Insulin Aspart (Insulin Aspart 300 Units/3 Ml Insuln.Pen) 0 units SUBCUT TID.WM.HS [facility]; Protocol Stop: 11/10/24 21:59 Last Admin: 11/14/23 12:41 Dose: Not Given Insulin Glargine (Insulin Glargine 300 Units/3 Ml Insuln.Pen) 35 units SUBCUT QHS [facility] Stop: 11/10/24 21:59 Last Admin: [...] Urine culture from Elliott catheter showed Enterobacter Aspermont complex and Kaelyn albicans. * Continue Elliott care for now. Will give a trial of void with bladder scan once renal function stabilizes diuretics. * Check renal function daily monitor input output Documented By: Hood Zacarias MD 11/14/23 0079 Signed By: <Electronically signed by MD Hood Zacarias> 11/14/23 3098 [facility] Work Phone: 1(231) 677-244303-25-2024 Progress note Author Manish Fu [facility] November 13, 2023 7:32pm Note Date/Time November 13, 2023 5:3 5pm [facility] [address] [place] [address] Hospitalist Progress Note Signed with Addenda Patient: Nicole Lora MR#: [id number] [birth year] : 1960 Acct:[id number] Age/Sex: 63 / M Adm Date: 4 Loc: 4 Room: 9E4225-8 Type: ADM IN Attending Dr: Manish Fu [...] Insuln.Pen SUBCUT 11/10/24 21:59 Not Given TID.WM.HS [facility] Protocol Insulin Glargine 35 units [...] Tablet PO 11/10/24 20:59 Not Given BID [facility] A&P - Hospitalist Assessment/Plan (1) Acute kidney [...] <Electronically signed by Manish Fu MD> 11/13/23 1909 [facility] Work Phone: 1(936) 681-479603-25-2024 Progress note [facility] November 13, 2023 2:24pm Note Date/Time November 13, 2023 2:2 4pm [facility] [address] [place] [address] Nephrology Progress Note Signed Patient: Nicole Lora MR#: [id number] [birth year] : 1960 Acct:[id number] Age/Sex: 63 / M Adm Date: 4 Loc: Room: [address] [place] [address] Type: ADM IN Attending Dr: Manish Fu MD Copies to: ~ Date of Service: 11/13/2023 Subjective Subjective Narrative: This is a 63-year-old male with a medical history of CKD, DM, HTN, TC, COPD, CHF was transferred from [facility] for shortness of breath and hypercapnic respiratory failure. Patient was admitted at [facility] on September 2023 for COPD and CHF. During hospitalization he wasalso found to have AMY on CKD due to the cardiorenal syndrome. His renal function improved with diuresis. Patient was also found to have urine retentionand had Elliott catheter. Patient was readmitted at [facility] and his diuretic regimen was adjusted. His labs in ER showed AMY with serum creatinine 4.9 mg/dL and hyperkalemia with serum potassium 5.3 mmol/L and anion gap of 18. Patient ABG showed pH 7.25 pCO2 58 oxygen saturation 57. He was placed on BiPAP briefly. Patient on arrival at [facility] had ABG which showed pH 7.19, pCO2 [...] 50 mls @ 100 mls/hr IV Q24H [facility] Stop: 11/15/23 08:29 Last Admin: 11/13/23 09:17 Dose: 100 mls/hr Insulin Aspart (Insulin Aspart 300 Units/3 Ml Insuln.Pen) 0 units SUBCUT TID.WM.[facility]; Protocol Stop: 11/10/24 21:59 Last Admin: 11/13/23 14:08 Dose: Not Given Insulin Glargine (Insulin Glargine 300 Units/3 Ml Insuln.Pen) 35 units SUBCUT QHS JMIMIE Stop: 11/10/24 21:59 Last Admin: 11/12/23 21:43 [...] Migue Wild M.D.11/12/2023 2:47 PM Dictation Location: [place] [address] Any impression(s) listed above is documentation that [...] Urine culture from Elliott catheter showed Enterobacter Aspermont complex and Kaelyn albicans. * Continue DM management as per the primary hospitalist team. The goal of blood sugar is 100 to 150 mg/dL. * Continue Elliott care. * Check renal function daily monitor input output Documented By: Hood Zacarias MD 11/13/23 141 Signed By: <Electronically signed by MD Hood Zacarias> 11/13/23 1424 [facility] Work Phone: 1(803) 487-705703-24-2024 Progress note Author Durga Loza [facility] November 12, 2023 1:45pm Note Date/Time November 12, 2023 1:4 5pm [facility] [address] [place] [address] Hospitalist Progress Note Signed Patient: Nicole Lora MR#: [id number] [birth year] : 1960 Acct:[id number] Age/Sex: 63 / M Adm Date: 4 Loc: Room: [address] [place] [address] Type: ADM IN Attending Dr: Durga Loza [...] was arousable and talking in right sentences. [facility] computer system was down socx-ray of the chest and renal ultrasound could not be performed yet. ON ADMISSION: Mr Lora is a 63-year-old male with past medical history of CKD stage III, diabetes type 2, TC, COPD, CHF with preserved ejection fraction who presents tospital today from transfer from outside facility for [...] who says that the patientwas admitted to [facility] roughly 1 week later after discharge from our facility and there was some adjustments to his diuretic therapy howevershe is not sure what the new medication was, medication list received from [facility] emergency room note shows Lasix 40 [...] leaking at home for a while. At [facility] he did receive 2 L of IV fluids and then subsequently transferred here for a nephrologyconsult. His labs at [facility] were notable for BUN of 76 [...] 11/11/24 07:29 12 units SUBCUT Administration TID.AC JIMMIE Insulin Glargine 35 units 11/11/23 22:00 11/11/23 [...] Daughter, Davin she can be reached at [phone] Documented By: Durga Loza MD 11/12/231341 Signed By: <Electronically signed by Durga Loza MD> 11/12/23 4155 [facility] Work Phone: 1([phone]) 993-315203-24-2024 Consult note Author Bladimir Story [facility] November 12, 2023 11:53am Note Date/Time November 12, 2023 11: 31am [facility] [address] [place] [address] Nephrology Consult Note Signed Patient: Nicole Lora MR#: [id number] [birth year] : 1960 Acct:[id number] Age/Sex: 63 / M Adm Date: 4 Loc: Room: [address] [place] [address] Type: ADM IN Attending Dr: Durga Loza MD Copies to: MD Mounika Limon MD, MD~ Providers Consult Date: 11/12/23 Requesting Provider: Durga Loza MD Primary Care Provider: Mounika Brooke MD [facility] Reason for Consult: AMY on CKD History of Present Illness: This is a 63-year-old male with a medical history of CKD, DM, HTN, TC, COPD, CHF was transferred from [facility] for shortness of breath and hypercapnic respiratory failure. Patient was admitted at [facility] 2023 for COPD and CHF. During hospitalization he was also found to have AMY on CKD due to the cardiorenal syndrome. His renal function improved with diuresis. Patient was also found to have urine retentionand had Elliott catheter. Patient was readmitted at [facility] and his diuretic regimen was adjusted. His labs in ER showed AMY with serum creatinine 4.9 mg/dL and hyperkalemia with serum potassium 4.3 mmol/L and anion gap of 18. Patient ABG showed pH 7.25 pCO2 58 oxygen saturation 57. He was placed on BiPAP briefly. Patient on arrival at [facility] had ABG which showed pH 7.19, pCO2 [...] denies any itching or rash [facility] Medical History (Updated 11/12/23 @ 11:27 by [...] 50 mls @ 100 mls/hr IV Q24H [facility] Stop: 11/15/23 08:29 Last Admin: 11/12/23 10:17 Dose: 100 mls/hr Insulin Aspart (Insulin Aspart 300 Units/3 Ml Insuln.Pen) 0 units SUBCUT TID.WM.HS [facility]; Protocol Stop: 11/10/24 21:59 Last Admin: 11/12/23 10:16 Dose: 2 units Insulin Aspart (Insulin Aspart 300 Units/3 Ml Insuln.Pen) 12 units 0.083 units/kg (12 units) SUBCUT TID.AC [facility] Stop: 11/11/24 07:29 Last Admin: 11/12/23 10:16 Dose: 12 units Insulin Glargine (Insulin Glargine 300 Units/3 Ml Insuln.Pen) 35 units SUBCUT QHS [facility] Stop: 11/10/24 21:59 Last Admin: [...] 8.6 Mg Tablet) 1 tab PO BID [facility] Stop: 11/10/24 20:59 Last Admin: [...] Skin: No rashes , warm to touch BATHING SUIT MAKER: Awake,Alert, following simple command Musculoskeletal: No swelling or limitation of movement of the large joints Psychiatric: Cooperative, normal mood and affect Results - Nephrology Labs 11/12/23 04:54 11/12/23 04:54 Labs: 11/11/23 11/11/23 11/12/23 19:27 22:20 04:54 BUN 78 H 80 H Creatinine 4.63 H 4.44 H Albumin 3.4 L Urine Color [place] A Urine Appearance Turbid A Urine pH 5.0 Ur Specific [place] 1.017 Urine Protein 100 H Urine Glucose [...] <Electronically signed by Bladimir Story MD> 11/12/23 1156 [facility] Work Phone: 1(129) 522-559703-23-2024 History and physical note Author Tera Nevarez [facility] November 11, 2023 9:06pm Note Date/Time November 11, 2023 8:0 3pm [facility] [address] [place] [address] Hospitalist H&P Signed with Addosvaldo Patient: Nicole Lora MR#: [id number] 29 : 1960 Acct:[id number] Age/Sex: 63 / M Adm Date: 4 Loc: Room: [address] [place] [address] Type: ADM IN Attending Dr: Tera Nevarez [...] Addendum Signed By: <Electronically signed by Tera Nevarez, > 11/11/232105 HPI DATE OF EXAMINATION: 11/11/23 CHIEF [...] who says that the patientwas admitted to [facility] roughly 1 week later after discharge from our facility and there was some adjustments to his diuretic therapy howevershe is not sure what the new medication was, medication list received from [facility] note shows Lasix 40 mg [...] he recently had a hole in his Elilott bag and it was leaking at home for a while. At [facility] he did receive 2 L of IV fluids and then subsequently transferred here for a nephrologyconsult. His labs at [facility] were notable for BUN of 76 [...] noted below or in HPI [facility] Medical History (Updated 11/11/23 @ 20:47 by [...] Uncorrected WBC Count 7.3 x10E3/uL (4.1-10.5) 11/11/23 19: RBC 4.57 X10E6/uL (3.90-5.60) 11/11/23 19:27 Hgb 12.0 g/dL (13.0-17.0) L 11/11/23 19:27 Hct 38.8 % (38.8-50.0) 11/11/23: MCV 84.9 fl (83.5-101) 11/11/23: MCH 26.2 pg (27.5-35.2) L 11/11/23: MCHC 30.9 g/dL (32.5-35.6) L 11/11/23: RDW 18.9 % (12.0-14.8) H 11/11/23: Plt Count 237 x10E3/uL (150-450) 11/11/23: MPV 7.0 fl (6.6-10.1) 11/11/23: Neut % (Auto) 73.6 % (.) 11/11/23: Lymph % (Auto) 14.5 % (.) 11/11/23: [place] % (Auto) 9.1 % (.) 11/11/23: Eos % (Auto) 2.1 % (.) 11/11/23 Baso % (Auto) 0.7 % (.) 11/11/23: Nucleat RBC Rel Count 0.1 /100 WBC (0-0.5) 11/11/23: Neut # (Auto) 5.4 x10E3/uL (1.8-7.7) 11/11/23: Lymph # (Auto) 1.1 x10E3/uL (1.00-4.8) 11/11/23: [place] # (Auto) 0.7 x10E3/uL (0.0-0.8) 11/11/23: Eos # (Auto) 0.2 x10E3/uL (0.0-0.45) 11/11/23: [...] restriction ? Full code Spoke with the daughterDavin she can be reached at [phone] IP vs OBS Justification Based on differential [...] <Electronically signed by Tera Nevarez DO> 11/11/232052 [facility] Work Phone: 1(706) 176-484103-23-2024 Evaluation + Plan noteExtracted from: Title:ED Note Author:Greyson Paddy ENGLE te:11/11/23 Acute respiratory failure (J 96.00: Acute [...] Appointments Appointment Date:11/16/2023 09:00:00 AM Scheduled Provider: Location:[facility] Appointment Type:Urology CALL PAT FT Appointment Date:11/20/2023 12:00:00 PM Scheduled Provider: Location:[facility] Appointment Type:Urology FT Appointment Date:11/20/2023 01:15:00 PM Scheduled Provider: Location:[facility] Appointment Type:Urology FT [...] Appointments Appointment Date:11/01/2023 02:00:00 PM Scheduled Provider: Location:[facility] Appointment Type:URO Nurse Visit Appointment Date:11/16/2023 09:00:00 AM Scheduled Provider: Location:[facility] Appointment Type:Urology CALL PAT FT Appointment Date:11/20/2023 12:00:00 PM Scheduled Provider: Location:[facility] Appointment Type:Urology FT Appointment Date:11/20/2023 01:15:00 PM Scheduled Provider: Location:[facility] Appointment Type:Urology FT [...] bag. Secure the leg bag according to machine repairer's instructions. This may be above or below [...] on each side. Do this in a [id number] direction. ?If you are male: ?Use one [...] Clean the drainage bag according to the machine repairer's instructions or as told bypeoples hospital care provider. 1.Wash your hands with soap [...] and water are not available, use hand magazine hand. Always make sure there are no twists, [...] provider. Document Revised: 04/07/2022 Document Reviewed: 04/07/2022 [employer] Patient Education 2022 [employer] Follow Up Care 10/30/2023 05:10:48 With:Taz THOMAS Address: [address] [place] [address]- Business (1) When:11/02/2023 05:21:06 Comments:Follow-up with urology for further evaluation and management. Please return to the ED for any new or worsening symptoms. With:REID BROOKE [address] [place] [address]- Business (1) When:Within 3 Day(s) [facility]03-09-2024 NoteHNO ID: [id number] Author: JOHN SPANN RN Service: ? Author Type: Registered Nurse Type: Progress Notes Filed: 10/28/2023 13:45 Note Text: Patient given discharge instructions and printed AVS summary. Medications reviewed in detail including next dose due, indication, and side effects. CHF management including symptoms to report reviewed. All questions answered. IV access discontinued, heart monitor off, and valuables packed by patient. BEAUTY SHOP MANAGER medications with patient. Awaiting daughter to transport patient home.[facility] [id number] NoteHNO ID: [id number] Author: GÓMEZ OLIVA LSW Service: Care Management Author Type: Sap Architect Type: Care Mgt Progress Note Filed: 10/28/2023 12:15 Note Text: CARE MANAGEMENT DISCHARGE NOTE SERVICE DATE: October 28, 2023 SERVICE TIME: 12:14 PM Admission Date: 10/23/2023 LOS: 4 days Discharge Arrangement Discharge Arrangement: Home with Home Health Services Arranged Medical Services: Skilled Home Health Care Type: Retirement, Physical Therapy, Occupational Therapy Caregiver Assessment Caregiver is ready, willing and able to meet the patient's needs as recommended by the inter-professional team: Yes Name of Caregiver: [facility] Transportation Arrangements Transportation Arrangements: Car Handoff Communication: Additional Information: Discharge Information Row Name ED to Hosp-Admission (Current) from 10/23/[address] Health Care Agency [facility] Patient will be d/c home with HHC from [facility] with a SOC date in 24 to 48 hours. Patient will transported home via family auto. SIGNATURE: JACK Posada PATIENT NAME: Nicole Lora DATE: October 28, 2023 TIME: 12:14 PM CONTACT #: [phone] History of Past illness Narrative* Problem Noted Date Diagnosed Date Resolved Date Acute on chronic respiratory failure with hypoxemia 10/28/2023 Last Assessment & Plan: See fluid overload documented as of this encounter (statuses as of 10/31/2023) [facility]03-09-2024 History of Past illness Narrative* Problem Noted Date Diagnosed Date Resolved Date Acute on chronic respiratory failure with hypoxemia 10/28/2023 Last Assessment & Plan: See fluid overload documented as of this encounter (statuses as of 11/22/2023) [facility]03-09-2024 History of Past illness Narrative* Problem Noted Date Diagnosed Date Resolved Date Acute on chronic respiratory failure with hypoxemia 10/28/2023 Last Assessment & Plan: See fluid overload documented as of this encounter (statuses as of 11/29/2023) [facility]03-09-2024 NoteHNO ID: [id number] Author: NAUN COUCH MD Service: Nephrology Author [...] limbs: +1 edema, distal pulses were palpable. BATHING SUIT MAKER: Conscious, Alert AND Orientedx3, fluent speech, intact [...] amputation admitted from home who presented to [facility] with complaints of worsening shortness of breath, bilateral lower extremity edema and ~ 10lb weight gain in the last few weeks. Patient reports multiple hospital admissions in 2023 at [facility] in [place] for fluid overload. He states he usually [...] daily - trending alkalosis Given diamox -HTN BEAUTY SHOP MANAGER Hydralazine 75 mg q12 hours -> decreased to 10 mg TID Isordil on hold, Continue to trend Can be discharged from nephrology standpoint Re-educated patient on fluid restriction, daily weight Follow up in office in 2-3 weeks Plan of care discussed with: Provider, RN, Patient Naun Couch MD [facility] October 28, 2023 8:37 AM [phone] NoteHNO ID: [id number] Author: NOTE, INTERFACE, ? Service: ? Author Type: ? Type: Progress Notes Filed: 10/28/2023 03:39 Note Text: Epic Scheduled Downtime: 10/28/2023 1:00:00 AM to 10/28/2023 3:24:00 [facility]03-08-2024 NoteHNO ID: [id number] Author: GÓMEZ OLIVA LSW Service: Care Management Author Type: Sap Architect Type: Care Mgt Progress Note Filed: 10/27/2023 13:20 Note Text: CARE MANAGEMENT PROGRESS NOTE SERVICE DATE: 10/27/2023 SERVICE TIME: 1:17 PM LOS: 3 days Needs Prior to Discharge: To Be Determined Consults: - Pulmonology - Cardiology Medical Needs: - IV lasix Transportation: - Family D/C Disposition: Once cleared by consults and attending physician, patient will be d/c back home. Patient is active with [facility] for PT/OT/SN provided to agency. Plan for patient's daughter or niece to transport. Please contact this SW over the weekend for d/c planning as needed. SIGNATURE: JACK Posada PATIENT NAME: Nicole Lora DATE: October 27, 2023 TIME: 1:17 PM PAGER/CONTACT #: [phone] NoteHNO ID: [id number] Author: TAY STEWART MD Service: General Internal [...] -- -- -- 70 22 90 % 10/26/232024 -- -- -- 74 19 95 [...] 6.3 CA 9.1 MG (more content not included)...Union [id number] NoteHNO ID: [id number] Author: JUSTINO MARTÍNEZ, RAFAEL Service: Nursing Author Type: Registered Nurse Type: Nursing Progress Note Filed: 10/27/2023 03:59 Note Text: Patient's daughter called. She would like the team to call her with updates. Union [id number] NoteHNO ID: [id number] Author: DELLA MADDOX RN Service: Care Management Author Type: Registered Nurse Type: Care Mgt Progress Note Filed: 10/26/2023 18:23 Note Text: CARE MANAGEMENT PROGRESS NOTE SERVICE DATE: 10/26/2023 SERVICE TIME: 6:16 PM LOS: 2 days Post-Acute Discharge Planning Patient Goal(s): General wellness Rincon of Choice Explained: Rincon of Choice Given: Yes Level of Care [...] not know which agency. [facility] [employer]-looks like pt is active with [facility] [phone] per [facility]-referral sent to confirm/resume. May NEED NEW F2F [...] 26, 2023 TIME: 6:15 PM PAGER/CONTACT #: [phone] NoteHNO ID: [id number] Author: VALERIE LINDSEY APRN.CNP Service: General Internal Medicine Author Type: Nurse Practitioner Type: Plan of Care Filed: 10/26/2023 15:36 Note Text: INTERNAL MEDICINE PLAN OF CARE SERVICE DATE: 10/26/2023 SERVICE TIME: 10 am ADMITTING PHYSICIAN: Tay Stewart MD Subjective CHIEF COMPLAINT: Fluid Overload NIGHT AND WEEKEND COVERAGE: [place] COVERAGE: [place] PAGER [phone] INTERVAL HISTORY OF PRESENT ILLNESS: Pt seen and examined on [facility] no apparent distress oob in chair. On 4 L 02 was moved from the MICU to [facility] yesterday evening . CONSULTANTS: Cardiology, nephrology , Pulmonary consulted today HOSPITAL COURSE: This is a 63 year old male with a PMHx of CKD 3b, chronic respiratory failure, morbid obesity, insulin dependent diabetes, left forefoot amputation admitted from home, lives in [place] for fluid overload. The patient states he's [...] consulted . Patient transferred from ED to [facility] where he has RR 2/2 acute hypoxic [...] and Airways Line Duration Peripheral 10/23/23 1609 [facility] Short Right Antecubital 20 Gauge 2 days Drain Duration Indwelling Urinary Catheter External Facility Coude 18 Fr -- days ASSESSMENT/PLAN: * Fluid overload- (present (more content not included)...[facility] 10-26-2023 NoteHNO ID: [id number] Author: TAY STEWART MD Service: General Internal [...] ?F) Axillary 75 16 94 % -- 10/25/236 -- -- -- 73 23 92 % [...] for today's visit: @IMAGES@ CBC: Recent Labs 10/26/23600 WBC 6.49 RBC 4.30 HB 11.6* HCT [...] which included preparing to see the patient, mjpw-no-iczu patient ca (more content not included)...[facility] 10-25-2023 NoteHNO ID: [id number] Author: NAUN COUCH MD Service: Nephrology Author [...] limbs: +3 edema, distal pulses were palpable. BATHING SUIT MAKER: Conscious, Alert AND Orientedx3, fluent speech, intact [...] amputation admitted from home who presented to [facility] with complaints of worsening shortness of breath, bilateral lower extremity edema and ~ 10lb weight gain in the last few weeks. Patient reports multiple hospital admissions in 2023 at [facility] in [place] for fluid overload. He states he usually [...] mg TID More stable, feeling better -HTN BEAUTY SHOP MANAGER Hydralazine 75 mg q12 hours -> decrease to 10 mg TID On Isordil 10 mg TID Continue to trend Plan of care discussed with: Provider, RN, Patient Naun Couch MD [facility] October 25, 2023 4:27 PM [phone] [id number] NoteHNO ID: [id number] Author: NERY MOTTA MD Service: Cardiovascular Medicine [...] Motta MD DATE of SERVICE: October 25, 2023[id number] NoteHNO ID: [id number] Author: MAE KENNY MD Service: Critical Care [...] 1.3 mL in (more content not included)... [id number] NoteHNO ID: [id number] Author: SRUTHI EGAN PA-C Service: General Internal Medicine Author Type: Physician Heddler Type: Plan of Care Filed: 10/24/2023 23:16 [...] Addendum: 2312: Called ICU on-call doc at 3819 and paged at [phone]. Pope back at 2110 with recs to transfer to ICU for bipap initiation. Plan discussed with RN. Patient currently asleep in chair. 90% on 5L O2 NC. Transfer order placed. Sruthi Egan PA-C 10/24/2023 11:15 [facility]03-05-2024 NoteHNO ID: [id number] Author: ELKE ORO RT(R) Service: ? Author Type: Truck Sales Manager Type: Progress Notes Filed: 10/24/2023 14:26 Note [...] PATIENT PRESENTS WITH AN IMPLANTABLE OR ATTACHED PETROPHYSICIST: No CREATININE: Creatinine Date Value Ref Range [...] to IP transport area for return to [facility]/ICU/ED. A Diagnostic radioactive procedure has taken place, with no further precautions necessary other than routine body substance precautions. More information regarding radiation safety can be found using this link: [email or web address]%20Nuclear%20Medicine%20Procedures.[email or web address] SIGNATURE: RT Karen(R) PATIENT NAME: Nicole Lora DATE: October 24, 2023 TIME: 2:25 PM PAGER/CONTACT #:[phone] Hospital Discharge instructions Patient Education 10/18/2023 09:14:11 [...] Follow these instructions at home: Medicines Take rlsh-bhn-hegrngn and prescription medicines only as told by [...] provider. Document Revised: 04/28/2021 Document Reviewed: 04/28/2021 [employer] Patient Education 2022 [employer] Follow Up Care 09/19/2023 09:41:35 With:MARTHA LYMAN, Taz Abraham, URL Address: [address] [address]- When: Unknown [facility] 02-25-2024 Evaluation + Plan noteExtracted from: Title:ED Note Author:Mone Martinez DO Date: Urinary catheter complicatio n (T83.9XXA: Unspecified complication of genitourinary prosthetic device, implant and graft, initial encounter) Future Appointments Appointment Date:10/18/2023 09:00:00 AM Scheduled Provider:Taz THOMAS MD Location:[facility] Appointment Type:URO New Patient Appointment Date:10/18/2023 09:15:00 AM Scheduled Provider:Sukh Harrington DPM [facility] Appointment Type:WC Follow Up Visit (FT) Appointment Date:11/01/2023 02:00:00 PM Scheduled Provider: Location:[facility] Appointment Type:URO Nurse Visit Appointment Date:11/16/2023 09:00:00 AM Scheduled Provider: Location:[facility] Appointment Type:Urology CALL PAT FT Appointment Date:11/20/2023 01:15:00 PM Scheduled Provider: Location:[facility] Appointment Type:Urology FT Future Scheduled Tests Radiology* XR Chest 2 Views 05/15/23 * XR Chest 2 Views 05/15/23 [facility]02-25-2024 Hospital Discharge instructions Patient Education 10/15/2023 06:54:02 Elliott Catheter Care, Male-[facility] (Custom) Elliott Catheter Care, Male A Elliott [...] cotton underwear to absorb moisture and keep dinkey skinner. 6. Keep the drainage bag below the [...] Up Care 10/15/2023 06:04:22 With:REID BROOKE Address: [address] [address]- Business (1) When:10/18/2023 06:53:53 Comments:Call the office of [...] [facility]24 Progress note Author Gigi Cooper [facility] October 12, 2023 12:38pm Note Date/Time October 12, 2023 12:38pm [facility] [address] [place] [address] Nephrology Progress Note Signed Patient: Nicole Lora MR#: [id number] [birth year] : 1960 Acct:[id number] Age/Sex: 63 / M Adm Date: 4 Loc: Room: [address] [place] [address] Type: ADM IN Attending Dr: Yesi Murphy [...] / 460 300 / 300 Output Total 20761 / 30909 3600 / 3600 4050 / 4050 900 [...] 40 Mg Tablet) 40 mg PO DAILY [facility] Stop: 10/09/24 08:59 Last Admin: 10/12/23 08:27 Dose: 40 mg Budesonide/Formoterol Fumarate (Budesonide/Formoterol 160-4.5 Mcg 60 Puff/6 Gm Hfa.Aer.Ad) 2 puff INHALATION Q12HR.10A.10P [facility] Stop: 10/08/24 21:59 Last Admin: 10/12/23 09:05 Dose: 2 puff Dextrose (Dextrose 50% In Water 25 Gm/50 Ml Syringe) 0 gm IV-PUSH PRN PRN PRN Reason: Hypoglycemia Stop: 10/06/24 02:05 Furosemide (Furosemide 40 Mg/4 Ml Vial) 40 mg IV-PUSH BID@0800,1600 [facility] Stop: 10/06/24 07:59 Last Admin: 10/11/23 08:01 Dose: 40 mg Gabapentin (Gabapentin 600 Mg Tablet) 600 mg PO BID [facility] Stop: 10/06/24 11:59 Last Admin: 10/12/23 08:27 Dose: 600 mg Glucose (Dextrose 40% Gel 15 Gm Tube) 0 gm PO PRN PRN PRN Reason: Hypoglycemia Stop: 10/06/24 02:05 Heparin Sodium (Porcine) (Heparin 5,000 Unit/Ml Vial) 5,000 unit SUBCUT Q8HR [facility] Stop: 10/06/24 05:59 Last Admin: 10/12/23 04:59 Dose: 5,000 unit Hydralazine HCl (Hydralazine 50 Mg Tablet) 50 mg PO BID [facility] Stop: 10/08/24 08:59 Last Admin: 10/12/23 08:27 Dose: 50 mg Insulin Aspart (Insulin Aspart 300 Units/3 Ml Insuln.Pen) 0 units SUBCUT TID.WM.HS [facility]; Protocol Stop: 10/06/24 07:59 Last Admin: 10/12/23 11:57 Dose: 4 units Insulin Glargine (Insulin Glargine 300 Units/3 Ml Insuln.Pen) 20 units SUBCUT BID JIMMIE Stop: 10/07/24 20:59 Last Admin: 10/12/23 08:28 [...] <Electronically signed by Gigi Cooper MD> 10/12/23 1233 [facility] Work Phone: 1(503) 237-388602-22-2024 Discharge summary Author Yesi Murphy [facility] October 12, 2023 1:36pm Note Date/Time October 12, 2023 10:24am [facility] [address] [place], [place] [address] Discharge Summary Signed Patient: Nicole Lora MR#: [id number] [birth year] : 1960 Acct:[id number] Age/Sex: 63 / M Adm Date: 4 Loc: Room: [address] [place] [address]: Yesi Murphy MD Copies to: [...] continued througout his stay with a cumulative -21123 ml during his stay. He did have [...] Plan Discharge Plan Patient Disposition: Home Health [facility] Activity: No Activity Restriction [...] Patient Ordered By: Yesi Murphy Follow Up: [facility] Nephrology - [place] [Outside] - 10/24/23 10:40 [...] signed by Yesi Murphy MD> 10/12/23 1336 [facility] Work Phone: 1(259) 692-927402-21-2024 Progress note Author Gigi Cooper [facility] October 11, 2023 12:27pm Note Date/Time October 11, 2023 12:27pm [facility] [address] [place] [address] Nephrology Progress Note Signed Patient: Nicole Lora MR#: [id number] [birth year] : 1960 Acct:[id number] Age/Sex: 63 / M Adm Date: 4 Loc: Room: [address] [place] [address] Type: ADM IN Attending Dr: Yesi Murphy [...] / 100 Output Total 3475 / 3475 42538 / 30444 3600 / 3600 1500 / 1500 Balance [...] 40 Mg Tablet) 40 mg PO DAILY [facility] Stop: 10/09/24 08:59 Last Admin: 10/11/23 08:02 Dose: 40 mg Budesonide/Formoterol Fumarate (Budesonide/Formoterol 160-4.5 Mcg 60 Puff/6 Gm Hfa.Aer.Ad) 2 puff INHALATION Q12HR.10A.10P [facility] Stop: 10/08/24 21:59 Last Admin: 10/11/23 07:58 Dose: 2 puff Dextrose (Dextrose 50% In Water 25 Gm/50 Ml Syringe) 0 gm IV-PUSH PRN PRN PRN Reason: Hypoglycemia Stop: 10/06/24 02:05 Furosemide (Furosemide 40 Mg/4 Ml Vial) 40 mg IV-PUSH BID@0800,1600 [facility] Stop: 10/06/24 07:59 Last Admin: 10/11/23 08:01 Dose: 40 mg Gabapentin (Gabapentin 600 Mg Tablet) 600 mg PO BID [facility] Stop: 10/06/24 11:59 Last Admin: 10/11/23 08:02 Dose: 600 mg Glucose (Dextrose 40% Gel 15 Gm Tube) 0 gm PO PRN PRN PRN Reason: Hypoglycemia Stop: 10/06/24 02:05 Heparin Sodium (Porcine) (Heparin 5,000 Unit/Ml Vial) 5,000 unit SUBCUT Q8HR [facility] Stop: 10/06/24 05:59 Last Admin: 10/11/23 05:42 Dose: 5,000 unit Hydralazine HCl (Hydralazine 50 Mg Tablet) 50 mg PO BID [facility] Stop: 10/08/24 08:59 Last Admin: 10/11/23 08:02 Dose: 50 mg Insulin Aspart (Insulin Aspart 300 Units/3 Ml Insuln.Pen) 0 units SUBCUT TID.WM.HS [facility]; Protocol Stop: 10/06/24 07:59 Last Admin: 10/11/23 11:38 Dose: 3 units Insulin Glargine (Insulin Glargine 300 Units/3 Ml Insuln.Pen) 20 units SUBCUT BID [facility] Stop: 10/07/24 20:59 Last Admin: [...] <Electronically signed by Gigi Cooper MD> 10/11/23 [facility] Work Phone: 1(290) 919-673402-21-2024 Progress note Author Yesi Murphy [facility] October 11, 2023 8:19am Note Date/Time October 11, 2023 8:17am [facility] [address] [place] [address] Hospitalist Progress Note Signed Patient: Nicole Lora MR#: [id number] [birth year] : 1960 Acct:[id number] Age/Sex: 63 / M Adm Date: 4 Loc: Room: [address] [place] [address] Type: ADM IN Attending Dr: Yesi Murphy [...] Kyle PRN Reason Stop Dose Admin Acetaminophen 1,000 [...] on chronic heart failure with preserved ejection uqbicbhe27% Patient is using 4 L nasal cannula [...] in a.m. Documented By: Yesi Murphy MD 10/11/23 5105 Signed By: <Electronically signed by Yesi Murphy MD> 10/11/23 0819 [facility] Work Phone: 1(172) 126-638602-20-2024 Progress note Author Yesi Murphy [facility] October 10, 2023 1:19pm Note Date/Time October 10, 2023 10:12am [facility] [address] [place] [address] Hospitalist Progress Note Signed Patient: Nicole Lora MR#: [id number] [birth year] : 1960 Acct:[id number] Age/Sex: 63 / M Adm Date: 4 Loc: Room: [address] [place] [address] Type: ADM IN Attending Dr: Yesi Murphy [...] on chronic heart failure with preserved ejection qoezldkf62% Patient is using 4 L nasal cannula [...] <Electronically signed by Yesi Murphy MD> 10/10/23 0707 [facility] Work Phone: 1(740) 270-291202-20-2024 Progress note Author Gigi Cooper [facility] October 10, 2023 12:50pm Note Date/Time October 10, 2023 12:51pm [facility] [address] [place] [address] Nephrology Progress Note Signed Patient: Nicole Lora MR#: [id number] [birth year] : 1960 Acct:[id number] Age/Sex: 63 / M Adm Date: 4 Loc: Room: [address] [place] [address] Type: ADM IN Attending Dr: Yesi Murphy [...] Total 4250 / 4250 3475 / 3475 41500 / 41474 900 / 900 Balance -2620 / -2620 [...] Puff/6 Gm Hfa.Aer.Ad) 2 puff INHALATION Q12HR.10A.10P [facility] Stop: 10/08/24 21:59 Last Admin: 10/10/23 10:19 Dose: 2 puff Dextrose (Dextrose 50% In Water 25 Gm/50 Ml Syringe) 0 gm IV-PUSH PRN PRN PRN Reason: Hypoglycemia Stop: 10/06/24 02:05 Furosemide (Furosemide 40 Mg/4 Ml Vial) 40 mg IV-PUSH BID@0800,1600 [facility] Stop: 10/06/24 07:59 Last Admin: 10/10/23 08:35 Dose: 40 mg Gabapentin (Gabapentin 600 Mg Tablet) 600 mg PO BID [facility] Stop: 10/06/24 11:59 Last Admin: 10/10/23 08:35 Dose: 600 mg Glucose (Dextrose 40% Gel 15 Gm Tube) 0 gm PO PRN PRN PRN Reason: Hypoglycemia Stop: 10/06/24 02:05 Heparin Sodium (Porcine) (Heparin 5,000 Unit/Ml Vial) 5,000 unit SUBCUT Q8HR [facility] Stop: 10/06/24 05:59 Last Admin: 10/10/23 05:49 Dose: 5,000 unit Hydralazine HCl (Hydralazine 50 Mg Tablet) 50 mg PO BID [facility] Stop: 10/08/24 08:59 Last Admin: 10/10/23 08:36 Dose: 50 mg Insulin Aspart (Insulin Aspart 300 Units/3 Ml Insuln.Pen) 0 units SUBCUT TID.WM.HS [facility]; Protocol Stop: 10/06/24 07:59 Last Admin: 10/10/23 11:50 Dose: 3 units Insulin Glargine (Insulin Glargine 300 Units/3 Ml Insuln.Pen) 20 units SUBCUT BID [facility] Stop: 10/07/24 20:59 Last Admin: [...] QHS JIMMIE Stop: 10/08/24 21:59 Last Admin: 10/09/23 21:48 [...] Appearance Clear Urine pH 5.0 Ur Specific [place] 1.008 Urine Protein 30 H Urine Glucose [...] concern Documented By: Gigi Cooper MD 10/10/23 8074 Signed By: <Electronically signed by Gigi Cooper MD> 10/10/23 8795 [facility] Work Phone: 1(413) 150-207902-19-2024 Progress note Author Hood Zacarias [facility] October 09, 2023 5:43pm Note Date/Time October 08, 2023 2:13pm [facility] [address] [place] [address] Event Note Signed Patient: Nicole Lora MR#: [id number] [birth year] : 1960 Acct:[id number] Age/Sex: 63 / M Adm Date: 4 Loc: Room: [address] [place] [address] Type: ADM IN Attending Dr: Yesi Murphy [...] 10 Documented By: Hood Zacarias MD 10/08/23 1409 Signed By: <Electronically signed by MD Hood Zacarias> 10/09/23 5690 [facility] Work Phone: 1(907) 782-472302-19-2024 Progress note Author Yesi Murphy [facility] October 09, 2023 2:16pm Note Date/Time October 09, 2023 1:59pm [facility] [address] [place] [address] Hospitalist Progress Note Signed Patient: Nicole Lora MR#: [id number] [birth year] : 1960 Acct:[id number] Age/Sex: 63 / M Adm Date: 4 Loc: Room: [address] [place] [address] Type: ADM IN Attending Dr: Yesi Murphy [...] signed by Yesi Murphy MD> 10/09/23 1416 [facility] Work Phone: 1(871) 780-168902-19-2024 Consult note Author Gigi Cooper [facility] October 09, 2023 11:35am Note Date/Time October 09, 2023 11:35am [facility] [address] [place] [address] Nephrology Consult Note Signed Patient: Nicole Lora MR#: [id number] [birth year] : 1960 Acct:[id number] Age/Sex: 63 / M Adm Date: 4 Loc: Room: [address] [place] [address] Type: ADM IN Attending Dr: Yesi Murphy MD Copies to: MD Mounika Patricio MD, MD~ Providers Consult Date: 10/09/23 Requesting Provider: Yesi Murphy MD Primary Care Provider: Mounika Brooke MD [facility] Reason for Consult: Acute kidney [...] of breath and body anasarca [facility] Medical History (Updated 10/09/23 @ 11:30 by [...] Mg/4 Ml Vial) 40 mg IV-PUSH BID@0800,1600 [facility] Stop: 10/06/24 07:59 Last Admin: 10/09/23 07:49 Dose: 40 mg Gabapentin (Gabapentin 600 Mg Tablet) 600 mg PO BID [facility] Stop: 10/06/24 11:59 Last Admin: 10/09/23 07:50 Dose: 600 mg Glucose (Dextrose 40% Gel 15 Gm Tube) 0 gm PO PRN PRN PRN Reason: Hypoglycemia Stop: 10/06/24 02:05 Heparin Sodium (Porcine) (Heparin 5,000 Unit/Ml Vial) 5,000 unit SUBCUT Q8HR [facility] Stop: 10/06/24 05:59 Last Admin: 10/09/23 06:30 Dose: 5,000 unit Hydralazine HCl (Hydralazine 50 Mg Tablet) 50 mg PO BID [facility] Stop: 10/08/24 08:59 Last Admin: 10/09/23 08:04 Dose: 50 mg Insulin Aspart (Insulin Aspart 300 Units/3 Ml Insuln.Pen) 0 units SUBCUT TID.WM.HS [facility]; Protocol Stop: 10/06/24 07:59 Last Admin: 10/09/23 07:58 Dose: Not Given Insulin Glargine (Insulin Glargine 300 Units/3 Ml Insuln.Pen) 20 units SUBCUT BID [facility] Stop: 10/07/24 20:59 Last Admin: [...] 10 Ml Syringe) 0 ml IV-PUSH QSHIFT [facility] Stop: 10/06/24 05:59 Last Admin: [...] Cheema Jr. D.OSue10/08/2023 2:58 PM Dictation Location: [place] [address] Any impression(s) listed above is documentation that [...] <Electronically signed by Gigi Cooper MD> 10/09/23 1131 [facility] Work Phone: 1(330) 370-275902-18-2024 Progress note Author Ramses Masters [facility] October 08, 2023 4:03pm Note Date/Time October 08, 2023 12:52pm [facility] [address] [place] [address] Hospitalist Progress Note Signed with Jazzy Patient: Nicole Lora MR#: [id number] [birth year] : 1960 Acct:[id number] Age/Sex: 63 / M Adm Date: 4 Loc: Room: 2I7375-7 Type: ADM IN Attending Dr: Ramses Masters [...] the daughterand he is usually seen at [facility]. He was recently admitted in August for pneumonia, volume overload and sepsis and now he is back again. The daughter requested the patient to be transferred to [facility]. I explained to thedaughter that at this time the patient is improving and would not have much to be offered more at [facility] but the daughter insistent to have him transferred and that she would feel more comfortable about that. I contacted the [facility] transfer center and spoke with Dr. medeiros from cardiology. The patient was accepted to the hospitalist service to Dr. Marcus Longoria Addendum Documented By: Ramses Masters MD 10/08/231602 Addendum Signed By: <Electronically signed by Ramses Masters MD> 10/08/23 160 Date of Service: 10/08/2023 Subjective Subjective Narrative: [...] III?current creatinine seems to be around baseline. 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 -Consult [...] signed by Ramses Masters MD> 10/08/23 1252 [facility] Work Phone: 1(802) 197-379602-17-2024 Progress note Author Ramses Masters [facility] October 07, 2023 1:28pm Note Date/Time October 07, 2023 1:28pm [facility] [address] [place] [address] Hospitalist Progress Note Signed Patient: Nicole Lora MR#: [id number] [birth year] : 1960 Acct:[id number] Age/Sex: 63 / M Adm Date: 4 Loc: Room: [address] [place] [address] Type: ADM IN Attending Dr: Ramses Masters [...] code Documented By: Ramses Masters MD 10/07/23 1322 Signed By: <Electronically signed by Ramses Masters MD> 10/07/23 1328 [facility] Work Phone: 1(539) 461-460402-17-2024 History and physical note Author Tera Nevarez [facility] October 07, 2023 4:13am Note Date/Time October 07, 2023 2:10am [facility] [address] [place] [address] Hospitalist H&P Signed Patient: Nicole Lora MR#: [id number] [birth year] : 1960 Acct:[id number] Age/Sex: 63 / M Adm Date: 4 Loc: Room: [address] [place] [address] Type: ADM IN Attending Dr: Tera Nevarez DO Copies to: URBANO Pfeiffer MD, ~ HPI DATE OF EXAMINATION: 10/07/23 CHIEF [...] will be admitted as inpatient to the [facility] telemetry floor. Review of Systems Review of Systems Review of systems: A 10 point review of systems was obtained, negative unless noted in the HPI or below. [facility] Medical History (Updated 10/07/23 @ 02:34 by [...] % (Auto) 11.2 % (.) 10/06/23 20:35 [place] % (Auto) 10.0 % (.) 10/06/23 20:35 Eos % (Auto) 3.0 % (.) 10/06/23 20:35 Baso % (Auto) 1.0 % (.) 10/06/23 20:35 Nucleat RBC Rel Count 0.1 /100 WBC (0-0.5) 10/06/23 20:35 Neut # (Auto) 5.2 x10E3/uL (1.8-7.7) 10/06/23 20:35 Lymph # (Auto) 0.8 x10E3/uL (1.00-4.8) L 10/06/23 20:35 [place] # (Auto) 0.7 x10E3/uL (0.0-0.8) 10/06/23 20:35 [...] I High Sens 8.2 pg/mL (0.0-20.0) 10/06/23 20:35 B-Natriuretic Peptide 131.0 pg/mL (5-100) H 10/06/23 20:35 Urine Color Yellow (Yellow) 10/06/23 21: Urine Appearance Clear (Clear) 10/06/23 21: Urine pH 5.0 (5.0-9.0) 10/06/23 21: Ur Specific [place] 1.013 (1.001-1.030) 10/06/23 21:26 Urine Protein 100 mg/dL (Negative) H 10/06/23 21: Urine Glucose (UA) 100 mg/dL (Normal) H 10/06/23 21:26 Urine Ketones Negative (Negative) 10/06/23 21: Urine Occult Blood 3+ (Negative) H 10/06/23 21: Urine Nitrite Negative (Negative) 10/06/23 21: Urine Bilirubin Negative (Negative) 10/06/23 21: Urine Urobilinogen Normal mg/dL (Normal) 10/06/23 21: Ur Leukocyte Esterase Negative (Negative) 10/06/23 21:26 Urine RBC Innumerable /HPF (0-4) H 10/06/23 21:26 Urine WBC 1-2 /HPF (0-4) 10/06/23 21:26 Ur Squamous Epith Cells 0-1 /HPF (0-2) [...] signed by Tera Nevarez DO> 10/07/23 0413 [facility] Work Phone: 1(791) 363-548602-04-2024 Hospital Discharge instructions Patient Education 09/24/2023 21:50:57 [...] Treatment for this condition includes: Antibiotic medicine. Rnnc-owi-lscjycz medicines to treat discomfort. Drinking enough water [...] Follow these instructions at home: Medicines Take sxle-xay-xzicsls and prescription medicines only as told by [...] provider. Document Revised: 03/19/2021 Document Reviewed: 03/19/2021 [employer] Patient Education 2022 [employer] Follow Up Care 09/24/2023 20:06:30 With:Taz THOMAS Address: [facility] [address] [place] [address] Business (1) When:09/26/2023 21:38:10 With:REID BROOKE Address: [address] [address] Business (1) When:Within 3 Day(s) [facility]02-04-2024 Evaluation + Plan noteExtracted from: Title:ED Note Author:Jose Miguel Phan DO Date :09/24/23 Acute UTI (N39.0: Urinary tr act infection, site not specified) Orders: cephalexin, 500 mg = 1 cap(s), Oral, q6hr, X 5 day(s), # 20 cap(s), Refills(s) 0, Pharmacy: [id number], 180, cm, 09/24/23 20:13:00 EST, Height/Length Dosing, [...] Date:09/26/2023 09:00:00 AM Scheduled Provider:BRYAN Bahena APRN, Gisselle Glasgow Location:[facility] Appointment Type:URO New Patient Appointment Date:09/28/2023 01:00:00 PM Scheduled Provider: [facility] Appointment Type:WC HBO () Appointment Date:10/18/2023 09:00:00 AM Scheduled Provider:Taz THOMAS MD Location:[facility] Appointment Type:URO New Patient Diagnostic Tests Pending [...] bag. Secure the leg bag according to machine repairer's instructions. This may be above or below [...] on each side. Do this in a gvktr-xn-omra direction. ?If you are male: ?Use one [...] Clean the drainage bag according to the machine repairer's instructions or as told byyour health care [...] and water are not available, use hand magazine hand. Always make sure there are no twists, [...] provider. Document Revised: 04/07/2022 Document Reviewed: 04/07/2022 [employer] Patient Education 2022 [employer]isiv. Follow Up Care 09/17/2023 14:05:58 With:REID BROOKE Address: [address] [place] [address] [address] Business (1) When:09/20/2023 15:07:35 Comments:Apply small amount [...] 01:00:00 PM Scheduled Provider: [facility]ointment Type:[facility] (FT) Future Scheduled Tests Radiology* XR Chest 2 Views 05/15/23 * XR Chest 2 Views 05/15/23 [facility]01-27-2024 [facility]Result Comment: Electronically Signed By: Kayla Garcia MD\.br\Date and Time Signed: 09/16/23 10:23 [id number] [facility] Comment on above:Result Comment: Electronically Signed By: Kayla Garcia MD\.br\Date and Time Signed: 09/12/23 17:49 [id number] Hospital Discharge instructions Patient Education 08/06/2023 14:18:47 RICE Therapy for Routine Care of Injuries, Lder-wt-Tccd RICE Therapy for Routine Care of Injuries [...] provider. Document Revised: 05/27/2021 Document Reviewed: 05/27/2021 [employer] Patient Education 2022 [employer]isiv. 08/06/2023 14:18:47 Hip Pain Hip Pain The [...] activities that cause pain. General instructions Take cgse-lhf-awhsoen and prescription medicines only as told by [...] provider. Document Revised: 12/23/2019 Document Reviewed: 12/23/2019 [employer] Patient Education 2022 [employer]isiv. Follow Up Care 08/06/2023 13:03:18 With:REID BROOKE Address: [address] [address]- Business (1) When:08/09/2023 14:06:25 Comments:Follow-up with your primary care provider in 3 to 5 days. If symptoms worsen, do not improve, or new symptoms arise please report back to emergency department for further evaluation. [facility]12-17-2023 Evaluation + Plan noteExtracted from: Title:ED Note Author:Paddy Betancourt PA-C te:08/06/23 Right hip pain (M25.551: Barb n in right hip) Orders: XR Hip 2-3 Views Right + Pelvis Future Appointments Appointment Date:08/16/2023 09:30:00 AM Scheduled Provider:Sukh Harrington DPM [facility] Appointment Type:WC Follow Up Visit (FT) Appointment Date:08/24/2023 10:00:00 AM Scheduled Provider:Migue STROUD MD Location:[facility] Appointment Type: Open Future Scheduled Tests Radiology* XR Chest 2 Views 05/15/23 * XR Chest 2 Views 05/15/23 [facility]11-01-2023 Progress note Author Amrik De Guzman [facility] June 21, 2023 12:21pm Note Date/Time June 21, 2023 1 2:21pm [facility] [address] [place] [address] Pulmonology Progress Note Signed Patient: Nicole Lora MR#: [id number] [birth year] : 1960 Acct:[id number] Age/Sex: 63 / M Adm Date: 3 Loc: Room: [address] [place] [address] Type: ADM IN Attending Dr: Alban Arrington [...] he is following up with pulmonology in [place], and supposed to call for sleep study and arrangement of positive pressure ventilation at home. Otherwise he is being discharged today, no further recommendations from my standpoint Documented By: Amrik De Guzman MD 06/21/23 1219 Signed By: <Electronically signed by Amrik De Guzman MD> 06/21/23 1221 [facility] Work Phone: 1(955) 382-720611-01-2023 Discharge summary Author Alban Arrington [facility] June 21, 2023 1:58pm Note Date/Time June 21, 2023 1 2:17pm [facility] [address] [place], [place] [address] Discharge Summary Signed Patient: Nicole Lora MR#: [id number] [birth year] : 1960 Acct:[id number] Age/Sex: 63 / M Adm Date: 3 Loc: 3T Room: 5Z4385-[address]: Alban Arrington DO Copies to: MD Alban Young, DO~ Providers Date of Discharge: 06/21/23 Discharging Provider: lAban Arrington Primary Care Provider: Migue Stroud Consults: [...] newly initiated on 4 L nasal cannula zzygle-gnp-lsmvu for ongoing hypoxia. Prior to this he [...] % (Auto) 57.7, Lymph % (Auto) 26.3, [place] % (Auto) 9.9, Eos % (Auto) 5.4, Baso % (Auto) 0.7, Nucleat RBC Rel Count 0.1, Neut # (Auto) 5.5, Lymph # (Auto) 2.5, [place] # (Auto) 0.9 H, Eos # (Auto) 0.5 H, Baso # (Auto) 0.1 06/21/23 06:39: POC Glucose 55 L*, POC Glucose Comment Will notify /rn 06/20/23 20:33: POC Glucose 227 06/20/23 17:49: [...] kerlix Please keep previously scheduled appointment with farm reporter in [place]. Prescriptions: New lisinopril-hydrochlorothiazide 20-25 mg tablet 1 [...] <Electronically signed by Alban Arrington DO> 06/21/23 0855 [facility] Work Phone: 1(890) 556-586510-31-2023 Consult note Author Amrik De Guzman [facility] June 20, 2023 2:43pm Note Date/Time June 20, 2023 2 :43pm [facility] [address] [place], [place] [address] Pulmonology Consult Note Signed Patient: Nicole Lora MR#: [id number] [birth year] : 1960 Acct:[id number] Age/Sex: 63 / M Adm Date: 3 Loc: Room: [address] [place] [address] Type: ADM IN Attending Dr: Alban Arrington [...] coughing spells for which she went to [facility] emergency room, wastold that he had [...] of oxygen, he was discharged home from [facility] on 4 L of oxygen. White count was normal his BUN and creatinine were elevated and was diagnosed with chronic kidney disease even previously at [facility]. I do not have any of his previous x- rays, CT, to review, chest x-ray here showed mild left lower lobe infiltrate possibly fibrotic or atelectatic with some volume loss in the left lung, again no baseline film to compare Review of Systems Review of Systems Review of systems: As mentioned above [facility] Medical History (Updated 06/20/23 @ 14:40 by [...] failure or cor pulmonale. Reportedly echo at [facility] did not report pulmonary hypertension but [...] cm of water while he was at [facility] per his history, will try this again tonight * Patient reported to me seeing pulmonology in [place] who are arranging for sleep study and treatment of obstructive sleep apnea * Will need continued diuretic therapy on discharge in addition to continuous oxygen therapy * Maintain inhaled therapy as started by pulmonology in [place], patient will follow-up with them upon discharge Documented By: Amrik De Guzman MD 06/20/23 3762 Signed By: <Electronically signed by Amrik De Guzman MD> 06/20/23 1443 [facility] Work Phone: 1(520) 963-939910-31-2023 Progress note Author Alban Arrington [facility] June 20, 2023 1:37pm Note Date/Time June 20, 2023 9 :48am [facility] [address] [place] [address] Hospitalist Progress Note Signed Patient: Nicole Lora MR#: [id number] [birth year] : 1960 Acct:[id number] Age/Sex: 63 / M Adm Date: 3 Loc: Room: [address] [place] [address] Type: ADM IN Attending Dr: Alban Arrington [...] chronic hypoxic respiratory failure -Recently discharged from [facility] for pneumonia on 4 L oxygen, [...] congestive heart failure, unspecified type -Echo at [facility] showed EF of 60 to 65% [...] <Electronically signed by Alban Arrington DO> 06/20/23 1966 [facility] Work Phone: 1(520) 393-100610-30-2023 Progress note Author Alban Arrington [facility] June 19, 2023 10:05am Note Date/Time June 19, 2023 1 0:05am [facility] [address] [place] [address] Event Note Signed Patient: Nicole Lora MR#: [id number] [birth year] : 1960 Acct:[id number] Age/Sex: 63 / M Adm Date: 3 Loc: 3T Room: [address] [place] [address] Type: ADM IN Attending Dr: Alban Arrington [...] signed by Alban Arrington DO> 06/19/23 1005 [facility] Work Phone: 1(423) 829-240210-30-2023 History and physical note Author Alban Arrington [facility] June 19, 2023 5:20am Note Date/Time June 19, 2023 3 :28am [facility] [address] [place] [address] Hospitalist H&P Signed Patient: Nicole Lora MR#: [id number] [birth year] : 1960 Acct:[id number] Age/Sex: 63 / M Adm Date: 3 Loc: Room: [address] [place] [address] Type: ADM IN Attending Dr: Alban Arrington DO Copies to: DO Reid Ferrer DO~ HPI DATE OF EXAMINATION: 06/19/23 CHIEF COMPLAINT: Swelling HISTORY OF PRESENT ILLNESS: This patient is a 63-year-old male recently hospitalized at [facility] and discharged . He was reportedly treated for pneumonia at that time. He was discharged on prednisone and doxycycline. He appears to have been discharged on 4 L of nasal cannula that he is to wear swirqi-ina-npffn. His primary complaint today is worsening edema [...] The patient was subsequently admitted to the [facility] floor for treatment of acute on chronic [...] continued. He only recently was discharged on tqmvv-cwj-oquxx 4 L O2. He may have been [...] noted below or in HPI [facility] Medical History Amputation of one or more [...] % (Auto) 20.2 % (.) 06/18/23 22:08 Ellsworth % (Auto) 9.2 % (.) 06/18/23 22:08 Eos % (Auto) 3.1 % (.) 06/18/23 22:08 Baso % (Auto) 0.7 % (.) 06/18/23 22:08 Nucleat RBC Rel Count 0.1 /100 WBC (0-0.5) 06/18/23 22:08 Neut # (Auto) 4.5 x10E3/uL (1.8-7.7) 06/18/23 22:08 Lymph # (Auto) 1.4 x10E3/uL (1.00-4.8) 06/18/23 22:08 Ellsworth # (Auto) 0.6 x10E3/uL (0.0-0.8) 06/18/23 22:08 [...] pH 5.5 (5.0-9.0) 06/18/23 23:26 Ur Specific [place] 1.020 (1.001-1.030) 06/18/23 23:26 Urine Protein 100 [...] days): 4 Documented By: Alban Arrington DO 06/19/23 23 Signed By: <Electronically signed by Alban Arrington DO> 06/19/23 5107 [facility] Work Phone: 1(276) 748-325510-26-2023 Evaluation + Plan noteExtracted from: Title:Discharge Note [...] 11 refills, Not taking Freestyle Sage 2 [place], See Instructions Freestyle Sage 2 Sensors, See Instructions, 3 refills gabapentin 600 mg Tab, 600 mg= 1 tab(s), Oral, TID, 11 refills Glucometer, See Instructions Glucometer test strips, See Instructions, 11 refills guaiFENesin 600 mg ER Tab, 1200 mg= 2 tab(s), Oral, BID Insulin Pen [place] 31g x 8 mm, See Instructions, 4 [...] tab(s), Oral, Daily With When Contact Information [facility] 06/21/2023 09:30 AM EDT Additional Instructions: Ida LYMAN, Pippa Mabry, PUL, KATY Within 2 to 4 weeks [address] [facility] ([facility] Vascular) [place] [address]- Additional Instructions: Call for followup appointment [place] [address] [place] [address]- Business (1) Additional Instructions: Please call the office to make a follow up appiontment. You are new to the office. Thank you. Hypoxia Community-Acquired Pneumonia, Adult, Crxy-dc-Mmso Extracted from: Title:APSO Note Author:Annabella Goldman Date:06/15/23 [...] standpoint Extracted from: Title:PCCM progress note Author:Zarina Calvert Jr., PA-C. Date:06/14/23 1. Acute respiratory failure with hypoxia [...] 9:22:00 EDT Addendum by Ida LYMAN Pippa BuiSue on June 14, 2023 15:59:41 EDT I have seen and evaluated the patient with the physician historian research assistant. His history, physical exam, assessment and [...] to baseline. - No urgent need for ORDER CALLER - Hold losartan and metformin for AMY [...] from: Title:APSO Note Author:Mingo Pillai DO James e:06/14/23 1. Acute respiratory failure with hypoxia [...] O2 We will await pulmonology recommendations Ordered: [facility] Hospital Care/Day Moderate 35 Minutes [address]506 2. Elevated brain natriuretic peptide (BNP) level (R79.89: Other specified abnormal findings of blood chemistry) despite echo negative for acute findings, cxr was concerning for fluid congestion 3. TC (obstructive sleep apnea) (G47.33: Obstructive sleep apnea (adult) (pediatric)) BiPap qHS and PRN 4. Hyperkalemia (E87.5: Hyperkalemia) 2/2 elevated glucose as well as elevated Cr, improved Status post [facility] Nephrology consulted and following trend [...] at 50ml/hour. - No urgent need for ORDER CALLER - Hold losartan and metformin for AMY [...] no show. Extracted from: Title:PCCM progress note Author:Zarina Calvert Jr., PA-C Date:06/13/23 1. Acute respiratory failure [...] kg over admission weight as well Ordered: [facility] Hospital Care/Day High 50 Minutes [id number] 2. Elevated brain natriuretic peptide (BNP) level [...] on Test Procalcitonin Addendum by Ida LYMAN, [facility] [place]. on June 12, 2023 17:23:20 EDT I have seen and evaluated the patient with the physician historian research assistant. His history, physical exam, assessment and [...] from: Title:APSO Note Author:Mingo Pillai DO James e:06/12/23 1. Acute hypoxemic respirato ry failure [...] strict I's and O's, daily weights Ordered: [facility] Hospital Care/Day High 50 Minutes 99923 2. Elevated brain natriuretic peptide (BNP) level [...] from: Title:Admission H & P Author:Jose LYMAN, [facility] Date:06/11/23 Acute hypoxemic respiratory failure Elevated BNP [...] Plan: As above Extracted from: Title:ED Note Author:Paddy Betancourt PA-C te:06/11/23 Hypoxia (R09.02: Hypoxemia) Left against medical advice (Z53.29: Procedure and treatment not carried out because of patient's decision for other reasons) Pneumonia (J18.9: Pneumonia, unspecified organism) Orders: albuterol-ipratropium, 3 mL, Soln-Inh, Inhalation, Once, Stop date 06/11/23 14:06:00 EDT, STAT, Start date 06/11/23 14:06:00 EDT doxycycline, 100 mg = 1 cap(s), Oral, BID, # 20 cap(s), Refills(s) 0, Pharmacy: [facility] #[id number], 182, cm, 06/11/23 13:54:00 EDT, Height/Length Dosing, [...] day(s), # 7 tab(s), Refills(s) 0, Pharmacy: [facility] #[id number], 182, cm, 06/11/23 13:54:00 EDT, Height/Length Dosing, 139.6, kg, 06/11/23 13:54:00 EDT, Weight Dosing Automated Diff B-Type Natriuretic Peptide Basic Metabolic Panel Blood Culture Charcoal Blood Culture Charcoal Blood Gas Art, with Lytes, Gluc, Lact CBC w/ Auto Diff Continuous Pulse Oximetry CTA Chest ED Cardiac Monitoring eGFR Lactic Acid Oxygen Therapy PT & PTT Rapid COVID Antigen ([facility]) Saline Lock Insert Troponin 0 Hr. Troponin 3 Hr. Troponin 6 Hr. Troponin 9 Hr. Future Appointments Appointment Date:06/21/2023 09:30:00 AM Scheduled Provider:Sukh Harrington DPM [facility] Appointment Type:WC Follow Up Visit (FT) Appointment Date:08/24/2023 10:00:00 AM Scheduled Provider:Migue STROUD MD Location:[facility] Appointment Type: Open Future Scheduled Tests [...] hypoxia. Follow these instructions at home: Take qqnd-vqw-ojyolll and prescription medicines only as told by [...] provider. Document Revised: 03/08/2022 Document Reviewed: 03/08/2022 [employer] Patient Education 2022 [employer]. 06/11/2023 20:24:39 Community-Acquired Pneumonia, Adult, Cqvn-ye-Qghd Community-Acquired Pneumonia, Adult Pneumonia is an infection [...] Follow these instructions at home: Medicines Take mghz-kqv-fmxrlnd and prescription medicines only as told by [...] cannot use soap and water, use hand magazine hand. Contact a doctor if: You have a [...] provider. Document Revised: 05/19/2020 Document Reviewed: 05/19/2020 [employer] Patient Education 2022 [employer]. Follow Up Care 06/11/2023 13:47:13 With:Ida LYMAN, Pippa Mabry PUL, KATY Address: [address] [facility]) [place] [address]- When:2 to 4 weeks Comments:Call for followup appointment With:[facility] Address:Unknown When:06/21/2023 09:30:00 With:Mounika Brooke Address: [address] [place] [address]- Business (1) When: Unknown Comments:Please call the office to make a follow up appiontment. You are new to the office. Thank you. [facility]08-14-2023 Hospital Discharge instructions Follow Up Care 04/03/2023 10:10:15 With:MARLI LYMAN, ЮЛИЯ [place] Address: When:Within 3 Month(s) [facility] [place] 12-15-2022 Hospital Discharge instructions Patient Education 08/04/2022 [...] or polycystic ovarian syndrome (PCOS). Being of Macedonian-Gambian, -Macedonian, /, or / descent. What are the [...] these instructions at home: General instructions Take oxri-dvu-bziedza and prescription medicines only as told by [...] 01/31/2002 Document Revised: 04/24/2017 Document Reviewed: 04/24/2017 [employer] Patient Education 2020 [employer]. Follow Up Care 08/04/2022 13:03:59 With:Migue STROUD Address: [address] [place] [address] [facility] (1) When:08/07/2022 16:52:09 Comments:Call the office of [...] noteExtracted from: Title:ED Note Author:Mone Martinez DO Date:1 10/05/21 Dehydration (E86.0: Dehydrat ion) Left [...] Date:09/13/2022 01:00:00 PM Scheduled Provider:Migue STROUD MD Location:[facility] Appointment Type: Open [facility]08-09-2022 Hospital Discharge instructions Follow Up Care 03/29/2022 14:12:55 With:Migue STROUD MD, [facility] Address: When:Within 1 Month(s) [facility] 07-20-2022 Hospital Discharge instructions Patient Education 03/09/2022 [...] or polycystic ovarian syndrome (PCOS). Being of Macedonian-Gambian, -Macedonian, /, or / descent. What are the [...] these instructions at home: General instructions Take vvnw-ugs-foynyft and prescription medicines only as told by [...] 01/31/2002 Document Revised: 04/24/2017 Document Reviewed: 04/24/2017 [employer] Patient Education 2020 [employer] Inc[employer] 03/09/2022 01:22:46 COVID-19 COVID-19 COVID-19 is a [...] to fight infection (immunocompromised). Live in a penitentiary or long-term care facility. Have a long-term [...] managed at home with rest, fluids, and wbwk-mfo-hngsavl medicines. Treatment for a serious infection usually [...] are safe for you. General instructions Take dofk-hxr-anneydl and prescription medicines only as told by [...] water are not available, usean alcohol-based hand magazine hand. ?Avoid touching your mouth, face, eyes, or [...] water are not available, use alcohol-based hand magazine hand. Stay away from other members of your [...] have a weak immunity, live in a penitentiary, or have chronic disease. There is no [...] 09/12/2019 Document Revised: 01/02/2020 Document Reviewed: 09/12/2019 [employer] Patient Education 2019 [employer]iv. Follow Up Care 03/08/2022 22:47:15 With:Migue STROUD Address: [address] [place], [place] [address] [facility] (1) When:03/16/2022 [facility]07-19-2022 Evaluation [...] Panel Influenza A&B Ag Rapid COVID Antigen ([facility]) Routine Capillary Glucose POC UA With Cult Reflex XR Chest Single View Future Appointments Appointment Date:03/29/2022 01:00:00 PM Scheduled Provider:Migue STROUD MD Location:[facility] Appointment Type:[facility]07-06-2022 Hospital Discharge instructions Follow Up Care 02/23/2022 13:55:05 With:Migue STROUD MD, [facility] Address: When:Within 3 Month(s) [facility] 05-10-2022 Hospital Discharge instructions Follow Up Care 12/28/2021 14:20:03 With:Migue STROUD MD, [facility] Address: When:Within 2 Month(s) [facility] Evaluation + Plan note Future Appointments Appointment Date:01/11/2022 01:40:00 PM Scheduled Provider:Migue STROUD MD Location:[facility] Appointment Type:[place] Evaluation + Plan note Future Appointments Appointment Date:03/08/2022 01:20:00 PM Scheduled Provider:Migue STROUD MD Location:[facility] Appointment Type:[place] Evaluation + Plan note Future Appointments Appointment Date:04/08/2022 09:00:00 AM Scheduled Provider: Location:[facility] Appointment Type: Medicare Wellness Subsequent Appointment Date:06/27/2022 02:20:00 PM Scheduled Provider:Migue STROUD MD Location:[facility] Appointment Type:[place] Evaluation + Plan note Future Appointments Appointment Date:06/27/2022 02:20:00 PM Scheduled Provider:Migue STROUD MD Location:[facility] Appointment Type:[place] evaluation + Plan note Future Appointments Appointment Date:10/11/2022 02:20:00 PM Scheduled Provider:Migue STROUD MD Location:[facility] Appointment Type:[place] Evaluation + Plan note Future Appointments Appointment Date:11/03/2022 10:00:00 AM Scheduled Provider:Migeu STROUD MD Location:[facility] Appointment Type:[place] Evaluation + Plan note Future Appointments Appointment Date:03/07/2023 10:40:00 AM Scheduled Provider:Migue STROUD MD Location:[facility] Appointment Type:[place] Evaluation + Plan note Future Appointments Appointment Date:04/27/2023 09:40:00 AM Scheduled Provider:Migue STROUD MD Location:[facility] Appointment Type:[place] evaluation + Plan note Future Appointments Appointment Date:04/25/2023 03:30:00 PM Scheduled Provider:Smooth Harrington DPM [facility] Appointment Type:WC Follow Up Visit (FT) Appointment Date:04/26/2023 09:30:00 AM Scheduled Provider:Sukh Harrington DPM [facility] Appointment Type:WC Follow Up Visit (FT) Appointment Date:04/27/2023 09:40:00 AM Scheduled Provider:Migue STROUD MD Location[facility] Future Appointments Appointment Date:04/26/2023 09:30:00 AM Scheduled Provider:Sukh Harrington DPM [facility] Appointment Type:WC Follow Up Visit (FT) Appointment Date:05/22/2023 01:20:00 PM Scheduled Provider:Migue STROUD MD Location[facility] Future Appointments Appointment Date:05/01/2023 11:15:00 AM Scheduled Provider: [facility] Appointment Type:WC Assessment (FT) Appointment Date:05/02/2023 04:00:00 PM Scheduled Provider:Smooth Harrington DPM [facility] Appointment Type:WC Follow Up Visit (FT) Appointment Date:05/22/2023 01:20:00 PM Scheduled Provider:Migue STROUD MD Location[facility] Future Appointments Appointment Date:05/02/2023 04:00:00 PM Scheduled Provider:Smooth Harrington DPM [facility] Appointment Type:WC Follow Up Visit (FT) Appointment Date:05/22/2023 01:20:00 PM Scheduled Provider:Migue STROUD MD Location[facility] Future Appointments Appointment Date:05/22/2023 01:20:00 PM Scheduled Provider:Migue STROUD MD Location[facility] Future Appointments Appointment Date:05/16/2023 08:30:00 AM Scheduled Provider: [facility] Type:PUL Pulmonary Function Test (FT) Appointment Date:05/22/2023 01:20:00 PM Scheduled Provider:Migue STROUD MD Location:[facility] Appointment Type: Open Appointment Date:06/05/2023 10:30:00 AM Scheduled Provider:Mary Mendez MD [facility] Type:Pulmonary Follow Up (FT) Future Scheduled Tests Radiology* XR Chest 2 Views 05/15/23 * XR Chest 2 Views 05/15/23 [facility]ments Appointment Date:06/05/2023 10:30:00 AM Scheduled Provider:Mary Mendez MD Location:FT.Pulmonary [facility] Appointment Type:Pulmonary Follow Up (FT) Appointment Date:06/07/2023 10:15:00 AM Scheduled Provider:Sukh Harrington DPM [facility] Appointment Type:WC Follow Up Visit (FT) Appointment Date:08/24/2023 10:00:00 AM Scheduled Provider:Migue STROUD MD Location:[facility] Appointment Type:FM Open Future Scheduled Tests Radiology* XR Chest 2 Views 05/15/23 * XR Chest 2 Views 05/15/23 [facility] Evaluation + Plan note Future Appointments Appointment Date:06/28/2023 09:45:00 AM Scheduled Provider:Sukh Harrington DPM [facility] Appointment Type:WC Follow Up Visit (FT) Appointment Date:08/24/2023 10:00:00 AM Scheduled Provider:Migue STROUD MD Location:[facility] Appointment Type: Open Future Scheduled Tests Radiology* XR Chest 2 Views 05/15/23 * XR Chest 2 Views 05/15/23 [facility] Appointment Date:06/28/2023 11:45:00 AM Scheduled Provider:Sukh Harrington DPM [facility] Appointment Type:WC Follow Up Visit (FT) Appointment Date:08/24/2023 10:00:00 AM Scheduled Provider:Migue STROUD MD Location:[facility] Appointment Type: Open Future Scheduled Tests Radiology* XR Chest 2 Views 05/15/23 * XR Chest 2 Views 05/15/23 [facility] Evaluation + Plan note Future Appointments Appointment Date:07/19/2023 10:30:00 AM Scheduled Provider:Sukh Harrington DPM [facility] Appointment Type:WC Follow Up Visit (FT) Appointment Date:08/24/2023 10:00:00 AM Scheduled Provider:Migue STROUD MD Location:[facility] Appointment Type: Open Future Scheduled Tests Radiology* XR Chest 2 Views 05/15/23 * XR Chest 2 Views 05/15/23 [facility] Appointment Date:08/02/2023 10:45:00 AM Scheduled Provider:Sukh Harrington DPM [facility] Appointment Type:WC Follow Up Visit (FT) Appointment Date:08/24/2023 10:00:00 AM Scheduled Provider:Migue STROUD MD Location:[facility] Appointment Type: Open Future Scheduled Tests Radiology* XR Chest 2 Views 05/15/23 * XR Chest 2 Views 05/15/23 [facility] Appointment Date:08/16/2023 09:30:00 AM Scheduled Provider:Sukh Harrington DPM [facility] Appointment Type:WC Follow Up Visit (FT) Appointment Date:08/24/2023 10:00:00 AM Scheduled Provider:Migue STROUD MD Location:[facility] Appointment Type: Open Future Scheduled Tests Radiology* XR Chest 2 Views 05/15/23 * XR Chest 2 Views 05/15/23 [facility] Appointment Date:08/24/2023 10:00:00 AM Scheduled Provider:Migue STROUD MD Location:[facility] Appointment Type: Open Appointment Date:08/30/2023 09:15:00 [...] 05/15/23 * XR Chest 2 Views 05/15/23 [facility] Evaluation + Plan note Future Appointments Appointment [...] Date:09/13/2023 10:45:00 AM Scheduled Provider:Sukh Harrington DPM [facility] Appointment Type:WC Follow Up Visit (FT) Appointment Date:09/18/2023 01:00:00 PM Scheduled Provider: Location[facility] Appointment Type:WC HBO (FT) Future Scheduled Tests Radiology* XR Chest 2 Views 05/15/23 * XR Chest 2 Views 05/15/23 [facility] Appointment Date:09/13/2023 10:45:00 AM Scheduled Provider:Sukh Harrington DPM Location[facility] [...] Appointments Appointment Date:10/05/2023 11:00:00 AM Scheduled Provider: Location:[facility] Appointment Type:URO Nurse Visit Appointment Date:10/18/2023 09:00:00 AM Scheduled Provider:Taz THOMAS MD Location:[facility] Appointment Type:URO New Patient Appointment Date:10/18/2023 09:15:00 AM Scheduled Provider:Sukh Harrington DPM [facility] Appointment Type:WC Follow Up Visit (FT) Appointment Date:11/16/2023 09:00:00 AM Scheduled Provider: Location:[facility] Appointment Type:Urology CALL PAT FT Appointment Date:11/20/2023 01:15:00 PM Scheduled Provider: Location:[facility] Appointment Type:Urology FT Future Scheduled Tests Radiology* XR Chest 2 Views 05/15/23 * XR Chest 2 Views 05/15/23 [facility] Appointment Date:10/18/2023 09:00:00 AM Scheduled Provider:Taz THOMAS MD Location:[facility] Appointment Type:URO New Patient Appointment Date:10/18/2023 09:15:00 AM Scheduled Provider:Sukh Harrington DPM [facility] Appointment Type:WC Follow Up Visit (FT) Appointment Date:11/01/2023 02:00:00 PM Scheduled Provider: Location:[facility] Appointment Type:URO Nurse Visit Appointment Date:11/16/2023 09:00:00 AM Scheduled Provider: Location:[facility] Appointment Type:Urology CALL PAT FT Appointment Date:11/20/2023 01:15:00 PM Scheduled Provider: Location:[facility] Appointment Type:Urology FT Future Scheduled Tests Radiology* XR Chest 2 Views 05/15/23 * XR Chest 2 Views 05/15/23 [facility] Evaluation + Plan note Future Appointments Appointment Date:11/01/2023 02:00:00 PM Scheduled Provider: Location:[facility] Appointment Type:URO Nurse Visit Appointment Date:11/16/2023 09:00:00 AM Scheduled Provider: Location:[facility] Appointment Type:Urology CALL PAT FT Appointment Date:11/20/2023 12:00:00 PM Scheduled Provider: Location:[facility] Appointment Type:Urology FT Appointment Date:11/20/2023 01:15:00 PM Scheduled Provider: Location:[facility] Appointment Type:Urology FT Future Scheduled Tests Radiology* XR Chest 2 Views 05/15/23 * XR Chest 2 Views 05/15/23 [facility] Evaluation + Plan note Future Appointments Appointment Date:11/16/2023 09:00:00 AM Scheduled Provider: Location:[facility] Appointment Type:Urology CALL PAT FT Appointment Date:11/20/2023 12:00:00 PM Scheduled Provider: Location:[facility] Appointment Type:Urology FT Appointment Date:11/20/2023 01:15:00 PM Scheduled Provider: Location:[facility] Appointment Type:Urology FT Future Scheduled Tests Radiology* XR Chest 2 Views 05/15/23 * XR Chest 2 Views 05/15/23 [facility] Evaluation + Plan note Future Appointments Appointment Date:12/15/2023 01:30:00 PM Scheduled Provider: Location:[facility] Appointment Type:URO Nurse Visit Appointment Date:12/19/2023 01:00:00 PM Scheduled Provider:Smooth Harrington DPM [facility] Appointment Type:WC Follow Up Visit (FT) Appointment Date:12/20/2023 09:00:00 AM Scheduled Provider:Sukh Harrington DPM [facility] Appointment Type:WC Follow Up Visit (FT) Appointment Date:01/31/2024 10:30:00 AM Scheduled Provider: Location:[facility] Appointment Type:Urology CALL PAT FT Appointment Date:02/05/2024 01:15:00 PM Scheduled Provider: Location:[facility] Appointment Type:Urology FT [...] (FT) Appointment Date:01/12/2024 01:00:00 PM Scheduled Provider: Location:[facility] Appointment Type:URO Nurse Visit Appointment Date:01/31/2024 10:30:00 AM Scheduled Provider: Location:[facility] Appointment Type:Urology CALL PAT FT Appointment Date:02/05/2024 01:15:00 PM Scheduled Provider: Location:[facility] Appointment Type:Urology FT Future Scheduled Tests Radiology* XR Chest 2 Views 05/15/23 * XR Chest 2 Views 05/15/23 [facility] Evaluation + Plan note Future Appointments Appointment Date:12/26/2023 01:45:00 PM Scheduled Provider:Smooth Harrington DPM [facility] Appointment Type:WC Follow Up Visit (FT) Appointment Date:01/12/2024 01:00:00 PM Scheduled Provider: Location:[facility] Appointment Type:URO Nurse Visit Appointment Date:01/31/2024 10:30:00 AM Scheduled Provider: Location:[facility] Appointment Type:Urology CALL PAT FT Appointment Date:02/05/2024 01:15:00 PM Scheduled Provider: Location:[facility] Appointment Type:Urology FT Future Scheduled Tests Radiology* XR Chest 2 Views 05/15/23 * XR Chest 2 Views 05/15/23 [facility] Appointment Date:01/02/2024 03:45:00 PM Scheduled Provider:Smooth Harrington DPM [facility] Appointment Type:WC Follow Up Visit (FT) Appointment Date:01/12/2024 01:00:00 PM Scheduled Provider: Location:[facility] Appointment Type:URO Nurse Visit Appointment Date:01/31/2024 10:30:00 AM Scheduled Provider: Location:[facility] Appointment Type:Urology CALL PAT FT Appointment Date:02/05/2024 01:15:00 PM Scheduled Provider: Location:[facility] Appointment Type:Urology FT Future Scheduled Tests Radiology* XR Chest 2 Views 05/15/23 * XR Chest 2 Views 05/15/23 [facility] Appointment Date:01/09/2024 02:45:00 PM Scheduled Provider:Smooth Harrington DPM [facility] Appointment Type:WC Follow Up Visit (FT) Appointment Date:01/12/2024 01:00:00 PM Scheduled Provider: Location:[facility] Appointment Type:URO Nurse Visit Appointment Date:01/31/2024 10:30:00 AM Scheduled Provider: Location:[facility] Appointment Type:Urology CALL PAT FT Appointment Date:02/05/2024 01:15:00 PM Scheduled Provider: Location:[facility] Appointment Type:Urology FT Future Scheduled Tests Radiology* XR Chest 2 Views 05/15/23 * XR Chest 2 Views 05/15/23 [facility] App[facility]ments Appointment Date:01/17/2024 10:00:00 AM Scheduled Provider:Sukh Harrington DPM [facility] Appointment Type:WC Follow Up Visit (FT) Appointment Date:01/31/2024 10:30:00 AM Scheduled Provider: Location:[facility] Appointment Type:Urology CALL PAT FT Appointment Date:02/05/2024 01:15:00 PM Scheduled Provider: Location:[facility] Appointment Type:Urology FT Future Scheduled Tests Radiology* XR Chest 2 Views 05/15/23 * XR Chest 2 Views 05/15/23 [facility] Evaluation + Plan note Future Appointments Appointment Date:01/23/2024 01:00:00 PM Scheduled Provider:Smooth Harrington DPM [facility] Appointment Type:WC Follow Up Visit (FT) Appointment Date:01/31/2024 10:30:00 AM Scheduled Provider: Location:[facility] Appointment Type:Urology CALL PAT FT Appointment Date:02/05/2024 01:15:00 PM Scheduled Provider: Location:[facility] Appointment Type:Urology FT Future Scheduled Tests Radiology* XR Chest 2 Views 05/15/23 * XR Chest 2 Views 05/15/23 [facility] App[facility] Appointment Date:01/31/2024 09:45:00 AM Scheduled Provider:Sukh Harrington DPM [facility] Appointment Type:WC Follow Up Visit (FT) Appointment Date:01/31/2024 10:30:00 AM Scheduled Provider: Location:[facility] Appointment Type:Urology CALL PAT FT Appointment Date:02/05/2024 01:15:00 PM Scheduled Provider: Location:[facility] Appointment Type:Urology FT Future Scheduled Tests Radiology* XR Chest 2 Views 05/15/23 * XR Chest 2 Views 05/15/23 [facility] App[facility] Appointment Date:02/05/2024 01:00:00 PM Scheduled Provider: Location:[facility] Appointment Type:Urology FT Appointment Date:02/14/2024 10:15:00 AM Scheduled Provider:Sukh Harrington DPM [facility] Appointment Type:WC Follow Up Visit (FT) Future Scheduled Tests Radiology* XR Chest 2 Views 05/15/23 * XR Chest 2 Views 05/15/23 [facility] App[facility] Appointment Date:02/14/2024 08:30:00 AM Scheduled Provider: Location:[facility] Appointment Type:URO Nurse Visit Appointment Date:02/14/2024 10:15:00 AM Scheduled Provider:Sukh Harrington DPM [facility] Appointment Type:WC Follow Up Visit (FT) Appointment Date:02/28/2024 07:45:00 AM Scheduled Provider:Taz THOMAS MD Location:[facility] Appointment Type:URO Office Visit Future Scheduled Tests Radiology* XR Chest 2 Views 05/15/23 * XR Chest 2 Views 05/15/23 [facility] Appointment Date:02/14/2024 08:30:00 AM Scheduled Provider: Location:[facility] Appointment Type:URO Nurse Visit Appointment Date:02/28/2024 07:45:00 AM Scheduled Provider:Taz THOMAS MD Location:[facility] Appointment Type:URO Office Visit Appointment Date:02/28/2024 10:45:00 AM Scheduled Provider:Sukh Harrington DPM [facility] Appointment Type:WC Follow Up Visit (FT) Future Scheduled Tests Radiology* XR Chest 2 Views 05/15/23 * XR Chest 2 Views 05/15/23 [facility]uation + Plan note Future Appointments Appointment Date:02/15/2024 08:30:00 AM Scheduled Provider: Location:[facility] Appointment Type:URO Nurse Visit Appointment Date:02/28/2024 07:45:00 AM Scheduled Provider:Taz THOMAS MD Location:[facility] Appointment Type:URO Office Visit Appointment Date:02/28/2024 10:45:00 AM Scheduled Provider:Sukh Harrington DPM [facility] Appointment Type:WC Follow Up Visit (FT) Future Scheduled Tests Radiology* XR Chest 2 Views 05/15/23 * XR Chest 2 Views 05/15/23 [facility]aluation + Plan note Future Appointments Appointment Date:02/28/2024 07:45:00 AM Scheduled Provider:Taz THOMAS MD Location:[facility] Appointment Type:URO Office Visit Appointment Date:02/28/2024 10:45:00 AM Scheduled Provider:Sukh Harrington DPM [facility] Appointment Type:WC Follow Up Visit (FT) Future Scheduled Tests Radiology* XR Chest 2 Views 05/15/23 * XR Chest 2 Views 05/15/23 [facility] Evaluation + Plan note Future Appointments Appointment Date:03/06/2024 10:45:00 AM Scheduled Provider:Sukh Harrington DPM [facility] Appointment Type:WC Follow Up Visit (FT) Appointment Date:09/04/2024 03:15:00 PM Scheduled Provider:Taz THOMAS MD Location:[facility] Appointment Type:URO Office Visit Future Scheduled Tests Laboratory* Basic Metabolic Panel 02/28/24 Radiology* XR Chest 2 Views 05/15/23 * XR Chest 2 Views 05/15/23 [facility] Evaluation + Plan note Future Appointments Appointment Date:03/13/2024 10:30:00 AM Scheduled Provider:Sukh Harrington DPM [facility] Appointment Type:WC Follow Up Visit (FT) Appointment Date:09/04/2024 03:15:00 PM Scheduled Provider:Taz THOMAS MD Location:[facility] Appointment Type:URO Office Visit Future Scheduled Tests Laboratory* Basic Metabolic Panel 02/28/24 Radiology* XR Chest 2 Views 05/15/23 * XR Chest 2 Views 05/15/23 [facility] Appointment Date:03/13/2024 10:30:00 AM Scheduled Provider:Sukh Harrington DPM [facility] Appointment Type:WC Follow Up Visit (FT) Appointment Date:09/04/2024 03:15:00 PM Scheduled Provider:Taz THOMAS MD Location:[facility] Appointment Type:URO Office Visit Future Scheduled Tests Radiology* XR Chest 2 Views 05/15/23 * XR Chest 2 Views 05/15/23 [facility] Future App[facility]ments Appointment Date:09/04/2024 03:15:00 PM Scheduled Provider:Taz THOMAS MD Location:[facility] Appointment Type:URO Office Visit [facility] evaluation note* Diagnosis Onset Date Resolution Status Edema acute Hypertension acute Hypoxemia acute Volume overload acute [facility] Work Phone: Evaluation note* Diagnosis Onset Date Resolution Status Acute on chronic respiratory failure with hypoxia and hypercapnia acute Edema acute Hypertension acute Hypertensive urgency acute Hypoxemia acute Obesity hypoventilation syndrome acute Obstructive sleep apnea acut e Respiratory failure acute Right heart failure acute Volume overload acute [facility] Work Phone: evaluation note* Diagnosis Onset Date Resolution Status Acute respiratory distress a cute CHF (congestive heart failure) acute COPD (chronic obstructive pulmonary disease) acute Lymphedema acute [facility] Work Phone: Evaluation note* Diagnosis Onset Date Resolution Status Acute on chronic respiratory failure with hypoxia and hypercapnia acute Acute respiratory distress a cute AMY (acute kidney injury) ac rampart CHF (congestive heart failure) acute CKD (chronic kidney disease) stage 3, GFR 30-59 ml/min acute COPD (chronic obstructive pulmonary disease) acute Diabetes mellitus, type 2 ac rampart Hyperkalemia acute Hypertension acute Lymphedema acute Obesity hypoventilation syndrome acute Urine retention acute [facility] Work Phone: Evaluation note* Diagnosis Onset Date Resolution Status CHF (congestive heart failure) acute CKD (chronic kidney disease) stage 3, GFR 30-59 ml/min acute COPD (chronic obstructive pulmonary disease) acute Diabetes mellitus, type 2 ac rampart Hypertension acute Lymphedema acute Obesity hypoventilation syndrome [...] disease) acute Diabetes mellitus, type 2 ac rampart Diastolic heart failure acut e Edema acute Hypernatremia acute Hypertension acute [id number] acute Lymphedema acute Metabolic alkalosis with respiratory acidosis acute Obesity hypoventilation syndrome acute Type 2 diabetes mellitus wit h diabetic chronic kidney disease acute Urine retention acute Hyperkalemia resolved [facility] Work Phone: Evaluation note* Diagnosis 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, unspecified proliferative retinopathy type (CMS/HCC)- Primary documented in this encounter [facility] HealthcareEvaluation note* Diagnosis Encounter for Medicare annual wellness exam- Primary Type 2 diabetes mellitus with hyperglycemia, without long-term current use of insulin (CMS/HCC) RLS (restless legs syndrome) Restless legs syndrome (RLS) Chronic hypoxemic respiratory failure (CMS/HCC) Chronic respiratory failure Stage 3b chronic kidney disease (HCC) (CMS/HCC) 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 Morbid obesity (CMS/HCC) Morbid obesity BMI 40.0-44.9, adult (CMS/HCC) Other diabetic neurological complication associated with type 2 diabetes mellitus ([facility]/HCC) TC (obstructive sleep apnea) Obstructive sleep apnea (adult) (pediatric) Restless leg syndrome Restless legs syndrome (RLS) Acute on chronic respiratory failure with hypoxia and hypercapnia (CMS/HCC) Obesity hypoventilation syndrome (CMS/HCC) Obesity hypoventilation syndrome Hypertension, unspecified type (CMS/[facility]) Varicose veins of both lower extremities, unspecified whether complicated Gastroesophageal reflux disease, unspecified whether esophagitis present 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 (CMS/[facility]) Mixed hyperlipidemia ([facility]) Mixed hyperlipidemia Long-term insulin use ([facility]) Type 2 diabetes mellitus with hyperglycemia, with long-term current use of insulin ([facility])- Primary Chronic cough Cough Chest wall pain Painful respiration Non-recurrent acute serous otitis media of right ear documented in this encounter [facility] HealthcareEvaluation note* Diagnosis Encounter for Medicare annual wellness exam- Primary Type 2 diabetes mellitus with hyperglycemia, without long-term current use of insulin ([facility]) RLS (restless legs syndrome) Restless legs syndrome (RLS) Chronic hypoxemic respiratory failure ([facility]) Chronic respiratory failure Stage 3b chronic kidney disease (HCC) ([facility]) 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 Morbid obesity ([facility]) Morbid obesity BMI 40.0-44.9, adult ([facility]) Other diabetic neurological complication associated with type 2 diabetes mellitus ([facility]) TC (obstructive sleep apnea) Obstructive sleep apnea (adult) (pediatric) Restless leg syndrome Restless legs syndrome (RLS) Acute on chronic respiratory failure with hypoxia and hypercapnia ([facility]) Obesity hypoventilation syndrome ([facility]/HCC) Obesity hypoventilation syndrome Hypertension, unspecified type ([facility]) Varicose veins of both lower extremities, unspecified whether complicated Gastroesophageal reflux disease, unspecified whether esophagitis present 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 ([facility] Mixed hyperlipidemia ([facility]) Mixed hyperlipidemia Long-term insulin use ([facility]) Acute pain of right shoulder- Primary Chronic hypoxemic respiratory failure ([facility]) Chronic respiratory failure Hypertension, unspecified type ([facility]) BMI 40.0-44.9, adult ([facility]) Morbid obesity ([facility]) Morbid obesity Type 2 diabetes mellitus with hyperglycemia, with long-term current use of insulin ([facility]) documented in this encounter [facility] HealthcareEvaluation note* Diagnosis Encounter for Medicare annual wellness exam- Primary Type 2 diabetes mellitus with hyperglycemia, without long-term current use of insulin ([facility] [place]) RLS (restless legs syndrome) Restless legs syndrome (RLS) Chronic hypoxemic respiratory failure ([facility]) Chronic respiratory failure Stage 3b chronic kidney disease (HCC) ([facility] 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 Morbid obesity ([facility]) Morbid obesity BMI 40.0-44.9, adult ([facility]) Other diabetic neurological complication associated with type 2 diabetes mellitus ([facility]) TC (obstructive sleep apnea) Obstructive sleep apnea (adult) (pediatric) Restless leg syndrome Restless legs syndrome (RLS) Acute on chronic respiratory failure with hypoxia and hypercapnia ([facility]) Obesity hypoventilation syndrome ([facility]) Obesity hypoventilation syndrome Hypertension, unspecified type ([facility]) Varicose veins of both lower extremities, unspecified whether complicated Gastroesophageal reflux disease, unspecified whether esophagitis present 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 ([facility] Mixed hyperlipidemia ([facility]) Mixed hyperlipidemia Long-term insulin use ([facility]) Difficulty walking- Primary Difficulty in walking Acute on chronic respiratory failure with hypoxia and hypercapnia ([facility]) Hypertension, unspecified type ([facility]) Type 2 diabetes mellitus with hyperglycemia, with long-term current use of insulin ([facility] Morbid obesity ([facility]) Morbid obesity BMI 40.0-44.9, adult ([facility]) Type 2 diabetes mellitus with hyperglycemia, with long-term current use of insulin ([facility]) documented in this encounter [facility] HealthcareEvaluation note* Diagnosis Encounter for Medicare annual wellness exam- Primary Type 2 diabetes mellitus with hyperglycemia, without long-term current use of insulin ([facility]) RLS (restless legs syndrome) Restless legs syndrome (RLS) Chronic hypoxemic respiratory failure ([facility]) Chronic respiratory failure Stage 3b chronic kidney disease (HCC) ([facility] 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 Morbid obesity ([facility]) Morbid obesity BMI 40.0-44.9, adult ([facility]) Other diabetic neurological complication associated with type 2 diabetes mellitus ([facility]) TC (obstructive sleep apnea) Obstructive sleep apnea (adult) (pediatric) Restless leg syndrome Restless legs syndrome (RLS) Acute on chronic respiratory failure with hypoxia and hypercapnia ([facility]) Obesity hypoventilation syndrome ([facility]) Obesity hypoventilation syndrome Hypertension, unspecified type ([facility]) Varicose veins of both lower extremities, unspecified whether complicated Gastroesophageal reflux disease, unspecified whether esophagitis present 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 ([facility] Mixed hyperlipidemia ([facility]) Mixed hyperlipidemia Long-term insulin use ([facility]) Type 2 diabetes mellitus with hyperglycemia, with long-term current use of insulin ([facility])- Primary Insulin long-term use ([facility]) Encounter for long-term (current) use of insulin Vitamin D deficiency Encounter for dietary consultation Hyperlipemia, mixed ([facility]) Mixed hyperlipidemia Primary hypertension ([facility]) Unspecified essential hypertension Class 2 severe obesity due to excess calories with serious comorbidity and body mass index (BMI) of 38.0 to 38.9 in adult ([facility]) documented in this encounter [facility] HealthcareEvaluation note* Diagnosis Encounter for Medicare annual wellness exam- Primary Type 2 diabetes mellitus with hyperglycemia, without long-term current use of insulin ([facility]) RLS (restless legs syndrome) Restless legs syndrome (RLS) Chronic hypoxemic respiratory failure ([facility]) Chronic respiratory failure Stage 3b chronic kidney disease (HCC) ([facility] 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 Morbid obesity ([facility]) Morbid obesity BMI 40.0-44.9, adult ([facility]) Other diabetic neurological complication associated with type 2 diabetes mellitus ([facility]) TC (obstructive sleep apnea) Obstructive sleep apnea (adult) (pediatric) Restless leg syndrome Restless legs syndrome (RLS) Acute on chronic respiratory failure with hypoxia and hypercapnia ([facility]) Obesity hypoventilation syndrome ([facility]) Obesity hypoventilation syndrome Hypertension, unspecified type ([facility]) Varicose veins of both lower extremities, unspecified whether complicated Gastroesophageal reflux disease, unspecified whether esophagitis present 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 ([facility] Mixed hyperlipidemia ([facility] Mixed hyperlipidemia Long-term insulin use ([facility]) 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, unspecified proliferative retinopathy type ([facility])- Primary documented in this encounter [facility] HealthcareEvaluation note* Diagnosis 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, unspecified proliferative retinopathy type ([facility] [place]HCC)- Primary 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 1 diabetes mellitus ([facility] [place]/HCC) documented in this encounter [facility] HealthcareEvaluation note* Diagnosis 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, unspecified proliferative retinopathy type ([facility] [place]/HCC)- Primary documented in this encounter [facility] HealthcareEvaluation note* Diagnosis Encounter for Medicare annual wellness exam- Primary Type 2 diabetes mellitus with hyperglycemia, without long-term current use of insulin ([facility]) RLS (restless legs syndrome) Restless legs syndrome (RLS) Chronic hypoxemic respiratory failure ([facility]) Chronic respiratory failure Stage 3b chronic kidney disease (HCC) ([facility] 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 Morbid obesity ([facility]) Morbid obesity BMI 40.0-44.9, adult ([facility]) Other diabetic neurological complication associated with type 2 diabetes mellitus ([facility]) TC (obstructive sleep apnea) Obstructive sleep apnea (adult) (pediatric) Restless leg syndrome Restless legs syndrome (RLS) Acute on chronic respiratory failure with hypoxia and hypercapnia ([facility]) Obesity hypoventilation syndrome ([facility]) Obesity hypoventilation syndrome Hypertension, unspecified type ([facility]) Varicose veins of both lower extremities, unspecified whether complicated Gastroesophageal reflux disease, unspecified whether esophagitis present 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 ([facility] Mixed hyperlipidemia ([facility] Mixed hyperlipidemia Long-term insulin use ([facility]) documented in this encounter [facility] HealthcareEvaluation note* Diagnosis Encounter for Medicare annual wellness exam- Primary Type 2 diabetes mellitus with hyperglycemia, without long-term current use of insulin ([facility]) RLS (restless legs syndrome) Restless legs syndrome (RLS) Chronic hypoxemic respiratory failure ([facility]) Chronic respiratory failure Stage 3b chronic kidney disease (HCC) ([facility] 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 Morbid obesity ([facility]) Morbid obesity BMI 40.0-44.9, adult ([facility]) Other diabetic neurological complication associated with type 2 diabetes mellitus ([facility]) TC (obstructive sleep apnea) Obstructive sleep apnea (adult) (pediatric) Restless leg syndrome Restless legs syndrome (RLS) Acute on chronic respiratory failure with hypoxia and hypercapnia (CMS/HCC) Obesity hypoventilation syndrome ([facility]HCC) Obesity hypoventilation syndrome Hypertension, unspecified type ([facility]) Varicose veins of both lower extremities, unspecified whether complicated Gastroesophageal reflux disease, unspecified whether esophagitis present 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 ([facility] Mixed hyperlipidemia ([facility]) Mixed hyperlipidemia Long-term insulin use ([facility]) Type 2 diabetes mellitus with hyperglycemia, with long-term current use of insulin ([facility])- Primary Insulin long-term use ([facility]) Encounter for long-term (current) use of insulin Vitamin D deficiency Encounter for dietary consultation Hyperlipemia, mixed ([facility]) Mixed hyperlipidemia Primary hypertension ([facility]) Unspecified essential hypertension documented in this encounter [facility] HealthcareEvaluation note* Diagnosis Encounter for Medicare annual wellness exam- Primary Type 2 diabetes mellitus with hyperglycemia, without long-term current use of insulin ([facility]) RLS (restless legs syndrome) Restless legs syndrome (RLS) Chronic hypoxemic respiratory failure ([facility]) Chronic respiratory failure Stage 3b chronic kidney disease (HCC) ([facility] 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 Morbid obesity ([facility]) Morbid obesity BMI 40.0-44.9, adult ([facility]) Other diabetic neurological complication associated with type 2 diabetes mellitus TC (obstructive sleep apnea) Obstructive sleep apnea (adult) (pediatric) Restless leg syndrome Restless legs syndrome (RLS) Acute on chronic respiratory failure with hypoxia and hypercapnia ([facility]) Obesity hypoventilation syndrome ([facility]) Obesity hypoventilation syndrome Hypertension, unspecified type ([facility]) Varicose veins of both lower extremities, unspecified whether complicated Gastroesophageal reflux disease, unspecified whether esophagitis present 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 Mixed hyperlipidemia ([facility] Mixed hyperlipidemia Long-term insulin use ([facility] Chronic hypoxemic respiratory failure ([facility])- Primary Chronic respiratory failure Acute cough Chest congestion Other symptoms involving respiratory system and chest Type 2 diabetes mellitus with hyperglycemia, with long-term current use of insulin ([facility]) Long-term insulin use ([facility]) Difficulty walking Difficulty in walking Leg weakness, bilateral Muscle weakness (generalized) BMI 35.0-35.9,adult Morbid obesity ([facility] Morbid obesity Type 2 diabetes mellitus with diabetic chronic kidney disease ([facility]) Chronic kidney disease, stage 3b (HCC) ([facility]) Essential (primary) hypertension ([facility] Unspecified essential hypertension Acquired absence of left foot ([facility]) Need for immunization against influenza Need for prophylactic vaccination and inoculation against influenza Need for pneumococcal vaccination Need for prophylactic vaccination against streptococcus pneumoniae (pneumococcus) documented in this encounter [facility] HealthcareEvaluation note* Diagnosis Encounter for Medicare annual wellness exam- Primary Type 2 diabetes mellitus with hyperglycemia, without long-term current use of insulin ([facility]) RLS (restless legs syndrome) Restless legs syndrome (RLS) Chronic hypoxemic respiratory failure ([facility]) Chronic respiratory failure Stage 3b chronic kidney disease (HCC) ([facility] 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 Morbid obesity ([facility]) Morbid obesity BMI 40.0-44.9, adult ([facility]) Other diabetic neurological complication associated with type 2 diabetes mellitus TC (obstructive sleep apnea) Obstructive sleep apnea (adult) (pediatric) Restless leg syndrome Restless legs syndrome (RLS) Acute on chronic respiratory failure with hypoxia and hypercapnia ([facility]) Obesity hypoventilation syndrome ([facility]) Obesity hypoventilation syndrome Hypertension, unspecified type ([facility]) Varicose veins of both lower extremities, unspecified whether complicated Gastroesophageal reflux disease, unspecified whether esophagitis present 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 Mixed hyperlipidemia ([facility] Mixed hyperlipidemia Long-term insulin use ([facility]) Primary osteoarthritis of both knees- Primary Type 2 diabetes mellitus with hyperglycemia, with long-term current use of insulin ([facility]) documented in this encounter [facility] HealthcareEvaluation note* Diagnosis Encounter for Medicare annual wellness exam- Primary Type 2 diabetes mellitus with hyperglycemia, without long-term current use of insulin ([facility]) RLS (restless legs syndrome) Restless legs syndrome (RLS) Chronic hypoxemic respiratory failure ([facility]) Chronic respiratory failure Stage 3b chronic kidney disease (HCC) ([facility] 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 Morbid obesity ([facility]) Morbid obesity BMI 40.0-44.9, adult ([facility]) Other diabetic neurological complication associated with type 2 diabetes mellitus TC (obstructive sleep apnea) Obstructive sleep apnea (adult) (pediatric) Restless leg syndrome Restless legs syndrome (RLS) Acute on chronic respiratory failure with hypoxia and hypercapnia ([facility]) Obesity hypoventilation syndrome ([facility]) Obesity hypoventilation syndrome Hypertension, unspecified type ([facility]) Varicose veins of both lower extremities, unspecified whether complicated Gastroesophageal reflux disease, unspecified whether esophagitis present 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 Mixed hyperlipidemia ([facility] Mixed hyperlipidemia Long-term insulin use ([facility]) Type 2 diabetes mellitus with hyperglycemia, with long-term current use of insulin ([facility])- Primary Insulin long-term use ([facility]) Encounter for long-term (current) use of insulin Vitamin D deficiency Encounter for dietary consultation Hyperlipemia, mixed ([facility]) Mixed hyperlipidemia Primary hypertension ([facility]) Unspecified essential hypertension documented in this encounter [facility] HealthcareEvaluation note* Diagnosis Encounter for Medicare annual wellness exam- Primary Type 2 diabetes mellitus with hyperglycemia, without long-term current use of insulin ([facility]) RLS (restless legs syndrome) Restless legs syndrome (RLS) Chronic hypoxemic respiratory failure ([facility]) Chronic respiratory failure Stage 3b chronic kidney disease (HCC) ([facility]) 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 Morbid obesity ([facility]) Morbid obesity BMI 40.0-44.9, adult ([facility]) Other diabetic neurological complication associated with type 2 diabetes mellitus TC (obstructive sleep apnea) Obstructive sleep apnea (adult) (pediatric) Restless leg syndrome Restless legs syndrome (RLS) Acute on chronic respiratory failure with hypoxia and hypercapnia ([facility]) Obesity hypoventilation syndrome ([facility]) Obesity hypoventilation syndrome Hypertension, unspecified type ([facility]) Varicose veins of both lower extremities, unspecified whether complicated Gastroesophageal reflux disease, unspecified whether esophagitis present 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 Mixed hyperlipidemia ([facility]) Mixed hyperlipidemia Long-term insulin use ([facility]) Muscle cramps- Primary Varicose veins of both lower extremities, unspecified whether complicated Type 2 diabetes mellitus with hyperglycemia, with long-term current use of insulin ([facility]) Essential (primary) hypertension ([facility]) Unspecified essential hypertension documented in this encounter [facility] HealthcareEvaluation note* Diagnosis Encounter for Medicare annual wellness exam- Primary Type 2 diabetes mellitus with hyperglycemia, without long-term current use of insulin ([facility]) RLS (restless legs syndrome) Restless legs syndrome (RLS) Chronic hypoxemic respiratory failure ([facility]) Chronic respiratory failure Stage 3b chronic kidney disease (HCC) ([facility]) 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 Morbid obesity ([facility]HCC) Morbid obesity BMI 40.0-44.9, adult ([facility]) Other diabetic neurological complication associated with type 2 diabetes mellitus TC (obstructive sleep apnea) Obstructive sleep apnea (adult) (pediatric) Restless leg syndrome Restless legs syndrome (RLS) Acute on chronic respiratory failure with hypoxia and hypercapnia ([facility]) Obesity hypoventilation syndrome ([facility]) Obesity hypoventilation syndrome Hypertension, unspecified type ([facility]) Varicose veins of both lower extremities, unspecified whether complicated Gastroesophageal reflux disease, unspecified whether esophagitis present 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 Mixed hyperlipidemia ([facility]) Mixed hyperlipidemia Long-term insulin use ([facility]) Anxiousness- Primary Anxiety state, unspecified documented in this encounter [facility] HealthcareEvaluation note* Diagnosis Encounter for Medicare annual wellness exam- Primary Type 2 diabetes mellitus with hyperglycemia, without long-term current use of insulin ([facility]) RLS (restless legs syndrome) Restless legs syndrome (RLS) Chronic hypoxemic respiratory failure (HCC) Chronic respiratory failure Stage 3b chronic kidney disease ([facility]) 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 Morbid obesity ([facility]) Morbid obesity BMI 40.0-44.9, adult ([facility]) Other diabetic neurological complication associated with type 2 diabetes mellitus (HCC) TC (obstructive sleep apnea) Obstructive sleep apnea (adult) (pediatric) Restless leg syndrome Restless legs syndrome (RLS) Acute on chronic respiratory failure with hypoxia and hypercapnia (HCC) Obesity hypoventilation syndrome ([facility]) Obesity hypoventilation syndrome Hypertension, unspecified type Varicose [...] (HCC) Long-term insulin use (HCC) Morbid obesity ([facility]) Morbid obesity BMI 36.0-36.9,adult documented in this encounter [facility] HealthcareEvaluation note* Diagnosis Encounter for Medicare annual wellness exam- Primary Type 2 diabetes mellitus with hyperglycemia, without long-term current use of insulin ([facility]) RLS (restless legs syndrome) Restless legs syndrome (RLS) Chronic hypoxemic respiratory failure (HCC) Chronic respiratory failure Stage 3b chronic kidney disease ([facility]) 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 Morbid obesity ([facility]) Morbid obesity BMI 40.0-44.9, adult ([facility]) Other diabetic neurological complication associated with type 2 diabetes mellitus ([facility]) TC (obstructive sleep apnea) Obstructive sleep apnea (adult) (pediatric) Restless leg syndrome Restless legs syndrome (RLS) Acute on chronic respiratory failure with hypoxia and hypercapnia (HCC) Obesity hypoventilation syndrome ([facility]) Obesity hypoventilation syndrome Hypertension, unspecified type Varicose veins of both lower extremities, unspecified whether complicated Gastroesophageal reflux disease, unspecified whether esophagitis present 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 (HCC) Mixed hyperlipidemia Mixed hyperlipidemia Long-term insulin use ([facility]) Hospital discharge follow-up- Primary Other follow-up examination Type 2 diabetes mellitus with hyperglycemia, with long-term current use of insulin ([facility]) Hyperosmolar hyperglycemic state (HHS) ([facility]) Muscle cramps Long-term insulin use ([facility]) Difficulty walking Difficulty in walking Essential (primary) hypertension Unspecified essential hypertension Morbid obesity ([facility]) Morbid obesity BMI 38.0-38.9,adult documented in this encounter [facility]* Diagnosis Encounter for Medicare annual wellness exam- Primary Type 2 diabetes mellitus with hyperglycemia, without long-term current use of insulin ([facility]) RLS (restless legs syndrome) Restless legs syndrome (RLS) Chronic hypoxemic respiratory failure (HCC) Chronic respiratory failure Stage 3b chronic kidney disease ([facility]) 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 Morbid obesity ([facility]) Morbid obesity BMI 40.0-44.9, adult ([facility]) Other diabetic neurological complication associated with type 2 diabetes mellitus ([facility]) TC (obstructive sleep apnea) Obstructive sleep apnea (adult) (pediatric) Restless leg syndrome Restless legs syndrome (RLS) Acute on chronic respiratory failure with hypoxia and hypercapnia (HCC) Obesity hypoventilation syndrome ([facility]) Obesity hypoventilation syndrome Hypertension, unspecified type Varicose veins of both lower extremities, unspecified whether complicated Gastroesophageal reflux disease, unspecified whether esophagitis present 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 (HCC) Mixed hyperlipidemia Mixed hyperlipidemia Long-term insulin use (HCC) Grief- Primary Adjustment disorder with depressed mood Anxiousness Anxiety state, unspecified Neck pain Cervicalgia Type 2 diabetes mellitus with hyperglycemia, with long-term current use of insulin (HCC) Essential (primary) hypertension Unspecified essential hypertension Morbid obesity (CMS-HCC) Morbid obesity BMI 36.0-36.9,adult documented in this encounter [facility] HealthcareHistory of [...] No change in regimen. [facility] Narrative No data available for this section [facility] Discharge instructions No data available for this section [facility] Discharge instructions Additional Instructions Continue oxygen [...] kerlix Please keep previously scheduled appointment with farm reporter in [place]. [facility] Work Phone: Progress note No data available for this section [facility] N[facility] - Outpatient (Routine) - Authorized Specialty Diagnoses / Procedures Referred By Contac t Referred To Contact Physical Therapy Diagnoses Difficulty in walking, not elsewhere classified Other symptoms and signs involving the musculoskeletal system Acquired absence of left foot (CMS/HCC) Procedures AL PHYS THERAPY EVALUATION Mounika Brooke MD [address] [place] [address] Phone: tel: fax: Mone Mcguire, PT [address] [address] Phone: tel: fax: Referral ID Status Reason Start Date Expiration Date V isits Requested Visits Authorized [id number] Authorized 12/11/2024 06/09/2025 99 99 [facility] [...] 2 Diastolic heart failure Edema Hypernatremia Hypertension [id number] Lymphedema Metabolic alkalosis with respiratory acidosis Obesity hypoventilation syndrome Type 2 diabetes mellitus with diabetic chronic kidney disease Urine retention Hyperkalemia Advance Directives No Advanced Directives Records Found Advance Directive Response Recorded Date/ Time Advance Directives No June 18, 2023 9:36pm Advance Directive Response Recorded Date/ Time Advance Directives No June 18, 2023 8:36pm Summary Purpose Family History No Family History Records Found Additional Source Comments Care Team (unrecognized sect ion and content) Team Status: Active Member Role Status Dates Mounika Brooke MD Primary Care Provider Active Team [...] Hood Zacarias MD Other Provider Active Start: ebruary 2023 End: October 12, 2023 Yesi Murphy [...] Provider Active Start: October 08, 2023 Jason Meracdo DO Emergency Provider Active St art: October 08, 2023 Tera Nevarez DO Admit Provider Active Start: October 08, 2023 Hood Zacarias MD Attending Provider, Other Provider Active Start: October 08, 2023 Yesi Murphy MD Other Provider Active Start : October 08, 2023 Team Status: Active Member Role Status Dates Mounika Brooke MD Primary Care Provider Active Start: October 09, 2023 Jason Mercado DO Emergency Provider Active St art: October 09, 2023 Tera Nevarez DO Admit Provider Active Start: October 09, 2023 Hood Zacarias MD Other Provider Active Start: ebruary 2023 Yesi Murphy MD Other Provider Active Start : October 09, 2023 Gigi Cooper MD Attending Provider Active Star t: October 09, 2023 Team Status: Active Member Role Status Dates Reid Brooke DO Primary Care Provider Active Team Status: Active Member Role Status Dates Reid Brooke DO Primary Care Provider Active Art M Kirby , DO Emergency Provider Active Alban Arrington , DO Admit Provider, Attending Provider Active Team Status: Active Member Role Status Dates Migue Stroud MD Primary Care Provider Active Team Status: Inactive Member Role Status Dates Art Kirby , Emergency Provider Active Alban Arrington , DO Admit Provider, Attending Provider Active Amrik De Guzman MD Other Provider Active Migue Stroud MD Primary Care Provider Active Husbandry Person Relationship Specialty Start Date End Date Mounika Brooke MD [address] [place] [address] PCP - General Family Medicine 07/27/23 Team Status: Active Member Role Status Dates Mounika Brooke MD Primary Care Provider Active Start: October 06, 2023 Jason Mercado , Emergency Provider Active St art: October 06, 2023 Tera Nevarez , Admit Provider, Atte nding Provider Active Start: October 06, 2023 Team Status: Inactive Member Role Status Dates Mounika Brooke MD Primary Care Provider Active Start: October 13, 2023 End: October 13, 2023 Yesi Murphy MD Attending Provider Active S tart: October 13, 2023 End: October 13, 2023 Husbandry Person Relationship Specialty Start Date End Date Mounika Brooke MD [address] [place] [address] PCP - General Family Medicine 10/23/23 [place] [address] [facility] [address] [place] [address] Physician Nephrology 10/31/23 Team Status: Inactive Member Role Status Dates Mounika Brooke MD Primary Care Provider Active Start: November 11, 2023 End: November 17, 2023 Tera Nevarez DO Admit Provider Active Start: November 11, 2023 End: November 17, 2023 Hood Zacarias MD Other Provider Active Start: Brittney solis 2023 End: November 17, 2023 Katelin Runner , [employer] Other Provider Active Start: November 11, 2023 End: November 17, 2023 Bladimir Story MD Other Provider Active Start: Kamila [facility] 2023 End: November 17, 2023 Immanuel Pozo MD Other Provider Active Star t: November 11, 2023 End: November 17, 2023 Satnam Guevara MD Other Provider Active Start: November 11, 2023 End: November 17, 2023 Gigi Cooper MD Other Provider Active Start: M arch 2023 End: November 17, 2023 Manish [...] Gigi Cooper MD Other Provider Active Start: M arch 2023 Husbandry Person Relationship Specialty Start Date End Date Mounika Brooke MD [address] [place] [address] PCP - General Family Medicine 10/23/23 [place] [address] [facility] [address] [place] [address] Physician Nephrology 10/31/23 Husbandry Person Relationship Specialty Start Date End Date Mounika Brooke MD [address] [place] [address] PCP - General Family Medicine 10/23/23 [place] [address] [facility] [address] [place] [address] Physician Nephrology 10/31/23 Husbandry Person Relationship Specialty Start Date End Date Mounika Brooke MD [address] [place] [address] PCP - General [facility] Medicine 07/27/23 Husbandry Person Relationship Specialty Start Date End Date Mounika Brooke MD [address] [place] [address] PCP - General [facility] 07/27/23 Husbandry Person Relationship Specialty Start Date End Date Mounika Brooke MD [address] [place] [address] PCP - General [facility] 07/27/23 Mounika Brooke MD [address] [place] [address] PCP - [facility] 01/20/24 08/20/24 Husbandry Person Relationship Specialty Start Date End Date Mounika Brooke MD [address] [place] [address] PCP - [facility] 07/27/23 Mounika Brooke MD [address] [place] [address] PCP - [facility] 01/20/24 08/20/24 Jennifer Short PA [address] [place] [address] Physician [facility] 06/24/24 Husbandry Person Relationship Specialty Start Date End Date Mounika Brooke MD [address] [place] [address] PCP - General [facility] 07/27/23 Mounika Brooke MD [address] [place] [address] [facility] 01/20/24 08/20/24 Husbandry Person Relationship Specialty Start Date End Date Mounika Brooke MD [address] [place] [address] PCP - [facility] 07/27/23 Mounika Brooke MD [address] [place] [address] [facility] 01/20/24 08/20/24 Jennifer Short PA [address] [place] [address] Physician [facility]ler [facility] 06/24/24 Husbandry Person Relationship Specialty Start Date End Date Mounika Brooke MD [address] [place] [address] PCP [facility] 07/27/23 Mounika Brooke MD [address] [place] [address] [facility] 01/20/24 08/20/24 Jennifer Short PA [address] [place] [address] [facility] 06/24/24 Husbandry Person Relationship Specialty Start Date End Date Mounika Brooke MD [address] [place] [address] PCP - General Family Medicine 07/27/23 Mounika Brooke MD [address] [place] [address] PCP [facility] 01/20/24 08/20/24 Jennifer Short PA [address] [place] [address] Physician [facility] 06/24/24 Husbandry Person Relationship Specialty Start Date End Date Mounika Brooke MD [address] [place] [address] PCP - General Family Medicine 07/27/23 Mounika Brooke MD [address] [place] [address] [facility] 01/20/24 08/20/24 Jennifer Short PA [address] [place] [address] Physician [facility] 06/24/24 Husbandry Person Relationship Specialty Start Date End Date Mounika Brooke MD [address] [place] [address] PCP - General Family Medicine 07/27/23 Mounika Brooke MD [address] [place] [address] PCP - [facility] 01/20/24 08/20/24 Jennifer Short PA [address] [place] [address] Physician [facility] 06/24/24 Husbandry Person Relationship Specialty Start Date End Date Mounika Brooke MD [address] [place] [address] PCP - General Family Medicine 07/27/23 Mounika Brooke MD [address] [place] [address] PCP - [facility] 01/20/24 08/20/24 Jennifer Short PA [address] [place] [address] Physician [facility] 06/24/24 Husbandry Person Relationship Specialty Start Date End Date Mounika Brooke MD [address] [place] [address] PCP - General Family Medicine 07/27/23 Husbandry Person Relationship Specialty Start Date End Date Mounika Brooke MD [address] [place] [address] PCP - General Family Medicine 07/27/23 Husbandry Person Relationship Specialty Start Date End Date Mounika Brooke MD [address] [place] [address] PCP - General Family Medicine 07/27/23 Husbandry Person Relationship Specialty Start Date End Date Mounika Brooke MD [address] [place] [address] PCP - General Family Medicine 07/27/23 Husbandry Person Relationship Specialty Start Date End Date Mounika Brooke MD [address] [place] [address] PCP - General Family Medicine 07/27/23 Husbandry Person Relationship Specialty Start Date End Date Mounika Brooke MD [address] [place] [address] PCP - General Family Medicine 07/27/23 Husbandry Person Relationship Specialty Start Date End Date Mounika Brooke MD [address] [place] [address] PCP - General Family Medicine 07/27/23 Jennifer Short PA [address] [place] [address] Physician [facility] 06/24/24 Husbandry Person Relationship Specialty Start Date End Date Mounika Brooke MD [address] [place] [address] PCP - General Family Medicine 07/27/23 Jennifer Short PA [address] [place] [address] Physician [facility] 06/24/24 Husbandry Person Relationship Specialty Start Date End Date Mounika Brooke MD [address] [place] [address] PCP - General Family Medicine 07/27/23 Mounika Brooke MD [address] [place] [address] PCP - [facility] 11/19/24 Jennifer Short PA [address] [place] [address] Physician [facility] 06/24/24 Janice Kevin LSW [facility] 12/04/24 Husbandry Person Relationship Specialty Start Date End Date Mounika Brooke MD [address] [place] [address] PCP - General Family Medicine 07/27/23 Mounika Brooke MD [address] [place] [address] PCP - [facility] 11/19/24 Jennifer Short PA [address] [place] [address] Physician [facility] 06/24/24 Janice Kevin LSW [facility] 12/04/24 12/10/24 Husbandry Person Relationship Specialty Start Date End Date Mounika Brooke MD [address] [place] [address] PCP - General Family Medicine 07/27/23 Mounika Brooke MD [address] [place] [address] PCP - [facility] 11/19/24 Jennifer Short PA [address] [place] [address] Physician [facility] 06/24/24 Husbandry Person Relationship Specialty Start Date End Date Mounika Brooke MD [address] [place] [address] PCP - General Family Medicine 07/27/23 Mounika Brooke MD [address] [place] [address] PCP - [facility] 11/19/24 Jennifer Short PA [address] [place] [address] Physician [facility] 06/24/24 Husbandry Person Relationship Specialty Start Date End Date Mounika Brooke MD [address] [place] [address] PCP - General Family Medicine 07/27/23 Mounika Brooke MD [address] [place] [address] PCP - [facility] 11/19/24 Jennifer Short PA [address] [place] [address] Physician [facility] 06/24/24 Husbandry Person Relationship Specialty Start Date End Date Mounika Brooke MD [address] [place] [address] PCP - General Family Medicine 07/27/23 Mounika Brooke MD [address] [place] [address] PCP - [facility] 11/19/24 Jennifer Short PA [address] [place] [address] Physician [facility] 06/24/24 Husbandry Person Relationship Specialty Start Date End Date Mounika Brooke MD [address] [place] [address] PCP - General Family Medicine 07/27/23 Mounika Brooke MD [address] [place] [address] PCP - [facility] 11/19/24 Jennifer Short PA [address] [place] [address] Physician [facility] 06/24/24 Husbandry Person Relationship Specialty Start Date End Date Mounika Brooke MD [address] [place] [address] PCP - General Family Medicine 07/27/23 Mounika Brooke MD [address] [place] [address] PCP - [facility] 11/19/24 Jennifer Short PA [address] [place] [address] Physician [facility] 06/24/24 Husbandry Person Relationship Specialty Start Date End Date Mounika Brooke MD [address] [place] [address] PCP - General Family Medicine 07/27/23 Mounika Brooke MD [address] [place] [address] PCP - [facility] 11/19/24 Jennifer Short PA [address] [place] [address] Physician [facility] 06/24/24 Husbandry Person Relationship Specialty Start Date End Date Mounika Brooke MD [address] [place] [address] PCP - General Family Medicine 07/27/23 Mounika Brooke MD [address] [place] [address] PCP - [facility] 11/19/24 Jennifer Short PA [address] [place] [address] Physician [facility] 06/24/24 Husbandry Person Relationship Specialty Start Date End Date Mounika Brooke MD [address] [place] [address] PCP - General Family Medicine 07/27/23 Mounika Brooke MD [address] [place] [address] PCP - [facility] 11/19/24 Jennifer Short PA [address] [place] [address] Physician [facility] 06/24/24 Husbandry Person Relationship Specialty Start Date End Date Mounika Brooke MD [address] [place] [address] PCP - General Family Medicine 07/27/23 Mounika Brooke MD [address] [place] [address] PCP - [facility] 11/19/24 Jennifer Short PA [address] [place] [address] Physician [facility] 06/24/24 Husbandry Person Relationship Specialty Start Date End Date Mounika Brooke MD [address] [place] [address] PCP - General Family Medicine 07/27/23 Monuika Brooke MD [address] [place] [address] PCP - [facility] 11/19/24 Jennifer Short PA [address] [place] [address] Physician [facility] 06/24/24 Jacqueline Vega, RN [address] [place] [address] Registered Nurse Family Medicine 04/09/25 Janice Kevin LSW [address] [place] [address] [facility] 04/10/25 Husbandry Person Relationship Specialty Start Date End Date Mounika Brooke MD [address] [place] [address] PCP - General Family Medicine 07/27/23 Mounika Brooke MD [address] [place] [address] PCP - [facility] 11/19/24 Jennifer Short PA [address] [place] [address] Physician [facility] 06/24/24 Jacqueline Vega, RN [address] [place] [address] Registered Nurse Family Medicine 04/09/25 Janice Kevin LSW [address] [place] [address] [facility] Family Medicine 04/10/25 Goals (unrecognized section and [...] section and content) DATE CREATED AUTHOR 10/29/[address] [facility] DATE CREATED AUTHOR AUTHOR'S ORGANIZ ATION 11/30/2023 [facility] DATE CREATED AUTHOR AUTHOR'S ORGANIZ ATION 03/14/2024 [facility] DATE CREATED AUTHOR AUTHOR'S ORGANIZ ATION 06/24/2024 [facility] DATE CREATED AUTHOR AUTHOR'S ORGANIZ ATION 09/05/2024 [facility] DATE CREATED AUTHOR AUTHOR'S ORGANIZ ATION 12/03/2024 [facility] DATE CREATED AUTHOR AUTHOR'S ORGANIZ ATION 12/24/2024 [facility] DATE CREATED AUTHOR AUTHOR'S ORGANIZ ATION 12/25/2024 [facility] DATE CREATED AUTHOR AUTHOR'S ORGANIZ ATION 12/26/2024 [facility] DATE CREATED AUTHOR AUTHOR'S ORGANIZ ATION 01/01/2025 [facility] DATE CREATED AUTHOR AUTHOR'S ORGANIZ ATION 01/17/2025 [facility] DATE CREATED AUTHOR AUTHOR'S ORGANIZ ATION 03/09/2025 [facility] DATE CREATED AUTHOR AUTHOR'S ORGANIZ ATION 03/10/2025 [facility] DATE CREATED AUTHOR AUTHOR'S ORGANIZ ATION 05/01/2025 [facility] EPIC Source Comments (unrecognize d section and content) In the event this informatio n is protected by the Federal Confidentiality of Alcohol and Drug Abuse Patient Records regulations: The Federal rules restrict any use of the information to criminally investigate or prosecute any alcohol or drug abuse patient.[facility] the event this information is protected by the Federal Confidentiality of Alcohol and Drug Abuse Patient Records regulations: The Federal rules restrict any use of the information to criminally investigate or prosecute any alcohol or drug abuse patient.[facility] the event this information is protected by the Federal Confidentiality of Alcohol and Drug Abuse Patient Records regulations: The Federal rules restrict any use of the information to criminally investigate or prosecute any alcohol or drug abuse patient.[facility] Reason for Visit (unrecogniz ed section and [...] Reason Onset Date Comments Care Coordination 03/24/2025 Reason Comments Med Refill FOR RECORDS PERTAINING TO PATIENTS WHO ARE [...] BE BASED ON THE PRIMARY CLINICAL RECORDS. [facility]. provides no warranty or guarantee of the accuracy or completeness of information in this document.
== END 2025-05-05 16:04 | disposition home or self-care (01) ==
LOC: WC 16:03
PROVIDERS: Visit Provider Physician Assistant
DX: E11.621 Type 2 diabetes mellitus with foot ulcer (principal); L97.422 Non-pressure chronic ulcer of left heel and midfoot with fat layer exposed
CPT/HCPCS: G0463

== ENCOUNTER 2025-06-04 13:52 | Outpatient (OUT) | payer OTHER, SELFPAY ==
--- OUTSIDE RECORDS SUMMARY | 2024-08-20 04:45 | XMS_ITS ---
Author Organization [facility] Servic es Address [address] [place] [address] Care Team Providers Care Continuity Director Name Role Phone Paresh Helm Primary Care Provider [phone] Dania Mario Unavailable REASON FOR VISIT WAX BITE. CASE IS HERE. VD Encounters Encounter Location Date Provider Diagnosis [place] [address] [place] [address] 08/20/2024 Paresh Helm Plan Of Treatment No Information Progress Notes * MONTRELL LORA ADOB:1960 ([age] yo M)Acc No.[id number]:08/20/2024 Dental Appointment Patient: Bertrand DOMINGUEZ MONTRELL Jesus Provider: Edin Helm DDS :1960 A ge:64 Y S ex:Male Date:08/20/2024 Address:[address] [place], [place] [id number] Subjective: * Chief Complaints: * W AX BITE. CASE IS HERE. VD * Electronic signature of Norma Helm DDS on 06/04/2025 at 01:55 PM EDT Sign off status: Pending * Provider: Edin Helm DDS Date: Generated for Patsy power/Razia/Eliezer on: 01:55 PM EDT
--- OUTSIDE RECORDS SUMMARY | 2024-09-10 04:50 | XMS_ITS ---
Author Organization [facility] Servic es Address [address] [place] [address] Care Team Providers Care Upper Doubler Name Role Phone Paresh Helm Primary Care Provider Dania Mario Unavailable [phone] REASON FOR VISIT DELIVERY-LIBERTY CASE IS HERE KH Encounters Encounter Location Date Provider Diagnosis [place] [address] [place] [address] 09/10/2024 Paresh Helm Plan Of Treatment No Information Progress Notes * MONTRELL LORA ADOB:1960 ([age] yo M)Acc No.[id number]:09/10/2024 Dental Appointment Patient: MONTRELL SIN Provider: Edin Helm DDS :1960 A ge:64 Y S ex:Male Date:09/10/2024 Address:[address] Subjective: * Chief Complaints: * [address] ST[address] CASE IS HERE KH * Electronic signature of Norma Helm DDS on 06/04/2025 at 01:55 PM EDT Sign off status: Pending * Provider: Edin Helm DDS Date: 0 09/10/2024 Generated for Patsy power/Razia/Sabrinaitting on: 01:55 PM EDT
--- OUTSIDE RECORDS SUMMARY | 2024-10-01 04:00 | XMS_ITS ---
Author Organization [facility] Servic es Address [address] [place] [address] Care Team Providers Care Historiographer Name Role Phone Paresh Helm Primary Care Provider Dania Mario Unavailable REASON FOR VISIT ADJUSTMENT Encounters Encounter Location Date Provider Diagnosis [facility] [address] [place] [address] 10/01/2024 Paresh Helm Plan Of Treatment No Information Progress Notes * MONTRELL LORA ADOB:1960 ([age] yo M)Acc No.[id number]:10/01/2024 Dental Appointment Patient: Bertrand ANGELICA SYD Provider: Edin Helm DDS :1960 A ge:64 Y S ex:Male Date:10/01/2024 Address[address] Subjective: * Chief Complaints: * A DJUSTMENT * Electronic signature of Norma Helm DDS on 06/04/2025 at 01:54 PM EDT Sign off status: Pending * Provider: Edin Helm DDS Date: 0 10/01/2024 Generated for Patsy power/Razia/Eliezer on: 1 01:54 PM EDT
--- OUTSIDE RECORDS SUMMARY | 2025-06-02 08:30 | XMS_ITS | Encounter Summary ---
Author Organization [facility] Address [address] [place] [address] Care Team Providers Care Arresting Gear Operator Name Role Phone Mounika Brooke MD Primary Care Provider Jennifer Orta Unavailable [phone] Mounika Brooke MD Unavailable Annette Vega RN Unavailable [phone] Janice Kevin SALES ACCOUNT REPRESENTATIVE Unavailable Reason for Visit * Reason Comments Diabetic Eye Exam Encounter Details Date Type Department Care Team (Latest Contact Info) Description 06/02/2025 8:30 AM EDT Office Visit [facility] [address] [place] [address] Perlita Wills MD [address] [place] [address] 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 No 04/11/2025 Sex and Gender Information Value Date Recorded Sex Assigned at Not on file Legal Sex Male 7:40 PM EDT Gender Identity Not on file Sexual Orientation Not on file documented as of this encounter Progress Notes * Perlita Wills MD - 06/02/2025 8:30 AM EDT Allergies Allergen Reactions Penicillins Rash Penicillamine Unknown Past Medical History: Diagnosis Date Acute exacerbation of chronic obstructive pulmonary disease (HCC) 11/17/2023 Acute hypoxemic respiratory failure (HCC) Acute on chronic respiratory failure with hypercapnia (HCC) AMY (acute kidney injury) Arthritis Asthma (HCC) Cataract Chronic kidney disease, stage 3b ([facility]) Diabetes (HCC) Diabetes mellitus with neuropathy ([facility]) Dietary counseling and surveillance Dry eyes GERD (gastroesophageal reflux disease) Hypertension Lymphedema of both lower extremities 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 (HCC) Morbid obesity with body mass index (BMI) of 40.0 to 49.9 ([facility]) Onychomycosis Pneumonia 06/19/2024 [facility] P[facility] (pulmonary valve disease) Type 2 diabetes mellitus with hyperglycemia (HCC) Vitamin D deficiency, unspecified Assessment/Plan Diabetes Mellitus with signs of diabetic retinopathy on dilated retinal examinationtoday OU: Discussed the pathophysiology of diabetes and its effect on the eye. Stressed the importance of strong glucose control. Advised of importance of at least yearly dilated examinations, but tocontact us immediately for any problems or concerns. Continue aggressive control of the blood sugar, blood pressure and cholesterol. documented in this encounter Plan of Treatment Upcoming Encounters Date Type Department Care Team (Late st Contact Info) Description 06/05/2025 1:10 PM EDT Office Visit [facility] [place] [facility] [address] [place] [address] Kayla Sweeney MD [address] [place] [address] 12/01/2025 8:30 AM EDT Office Visit [facility] [address] [place] [address] Perlita Wills MD [address] [place] [address] Scheduled Orders Name Type Priority Associated Diagnoses Orde r Schedule OCT, Retina - OU - Both Eyes Ophthalmology Routine 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, unspecified proliferative retinopathy type (HCC) Ordered: 06/02/2025 documented as of this encounter Visit Diagnoses Diagnosis 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, unspecified proliferative retinopathy type (HCC)- Primary 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 1 diabetes mellitus (HCC) documented in this encounter Care Teams Arresting Gear Operator Relationship Specialty Start Date End Date Mounika Brooke MD [address] [place] [address] PCP - General Family Medicine 07/27/23 Mounika Brooke MD [address] [place] [address] PCP - [facility] 11/19/24 Jennifer Orta PA [address] [place] [address] Physician Cloth Stretcher Family Medicine 06/24/24 Annette Vega, RN [address] [place] [address] Registered Nurse Family Medicine 04/09/25 Janice Kevin LSW [address] [place] [address] Residential Mortgage Manager Family Medicine 04/10/25 documented as of this encounter
--- OUTSIDE RECORDS SUMMARY | 2025-06-04 13:54 | XMS_ITS | Encounter Summary ---
Author Organization [facility] Address [address] [place] [address] Care Team Providers Care Computer Technology Instructor Name Role Phone Migue Stroud MD Primary Care Provider Mounika Brooke MD Primary Care Provider Deann Calles LPN Unavailable Mounika Brooke MD Unavailable [phone] Jennifer Orta Unavailable Mounika Brooke MD Unavailable [phone] Janice Kevin GROUP RESERVATIONS COORDINATOR Unavailable Annette Vega RN Unavailable Janice Kevin GROUP RESERVATIONS COORDINATOR Unavailable Encounter Details Date Type Department Care Team (Latest Contact Info) Description 05/17/2023 Abstract [facility] Sukh Harrington, DPM FACFAS [address] [place] [address] Social History Tobacco Use Types Packs/Day Years [...] 06/05/2025 1:10 PM EDT Office Visit [facility] [place] [facility] [address] [place] [address] Kayla Sweeney MD [address] [place] [address] 12/01/2025 8:30 AM EDT Office Visit [facility] [address] [place] [address] Prelita Wills MD [address] [place] [address] documented as of this encounter Visit Diagnoses Not on filedocumented in this encounter Care Teams Computer Technology Instructor Relationship Specialty Start Date End Date Migue Stroud MD [address] [place] [address] PCP - General Family Medicine 04/03/23 07/26/23 Mounika Brooke MD [address] [place] [address] PCP - General Family Medicine 07/27/23 Mounika Brooke MD [address] [place] [address] PCP - [facility] 01/20/24 08/20/24 Mounika Brooke MD [address] [place] [address] PCP - [facility] 11/19/24 Deann Calles LPN [address] [place] [address] Licensed Practical Nurse Family Medicine 09/26/2302/27 Jennifer Orta PA [address] [place] [address] Physician Ammonia Refrigeration Technician Family Medicine 06/24/24 Janice Kevin LSW [address] [place] [address] Correction Officer Head Family Medicine 12/04/24 12/10/24 Annette Vega, RN [address] [place] [address] Registered Nurse Family Medicine 04/09/25 Janice Kevin LSW [address] [place] [address] Correction Officer Head Family Medicine 04/10/25 documented as of this encounter
--- OUTSIDE RECORDS SUMMARY | 2025-06-04 13:54 | XMS_ITS | Encounter Summary ---
Author Organization [facility] Address [address] [place] [address] Care Team Providers Care Graphic Art Technician Name Role Phone Mounika Brooke MD Primary Care Provider [phone] Deann Calles LPN Unavailable Mounika Brooke MD Unavailable [phone] Jennifer Orta Unavailable [phone] Mounika Brooke MD Unavailable Janice Kevin REMODELER Unavailable Annette Vega RN Unavailable [phone] Janice Kevin REMODELER Unavailable Encounter Details Date Type Department Care [...] Department Care Team (Late Contact Info) Description 06/05/2025 1:10 PM EDT Office Visit [facility] [place] [facility] [address] [place] [address] Kayla Sweeney MD [address] [place] [address] 12/01/2025 8:30 AM EDT Office Visit [facility] [address] [place] [address] Perlita Wills MD [address] [place] [address] documented as of this encounter Procedures Procedure [...] QTC Calculation(Bazett) : 441 ms Calculated P Brewster : 53 degrees Calculated R Brewster : -76 degrees Calculated T Brewster : 65 degrees Sinus rhythm Left anterior fascicular block Abnormal ECG no stemi Confirmed by DARNELL YIN MD ([id number]), material expeditor ANNETTE ROSALES ([id number]) on 10/24/2023 10:36:37 AM NAME : MONTRELL LORA PID : [id number] : 1960 Gender : Male Race : ORD : [id number] Procedure Date : Oct 23 2023 20:16:04 Edit Date : Oct 24 2023 10:36:39 Diagnosis: Sinus rhythm Left anterior fascicular block Abnormal ECG no stemi Confirmed by DARNELL YIN MD ([id number]), material expeditor ANNETTE ROSALES ([id number]) on 10/24/2023 10:36:37 AM Test Reason : Other - Specify Location : 402 : [facility] [id number] Overread By : DARNELL YIN MD Edited By : ANNETTE ROSALES Referred By : , Acquired by : [id number], Procedure Note Radiology, Radiologist, - 10/24/2023 Ventricular Rate : 77 BPM Atrial Rate : 78 BPM P-R Interval : 180 ms QRS Duration : 97 ms Q-T Interval : 389 ms QTC Calculation(Bazett) : 441 ms Calculated P Brewster : 53 degrees Calculated R Brewster : -76 degrees Calculated T Brewster : 65 degrees Sinus rhythm Left anterior fascicular block Abnormal ECG no stemi Confirmed by DARNELL YIN MD ([id number]), material expeditor ANNETTE ROSALES ([id number]) on10/24/2023 10:36:37 AM NAME : MONTRELL LORA PID : [id number] : 1960 Gender : Male Race : ORD : [id number] Procedure Date : Oct 23 2023 20:16:04 Edit Date : Oct 24 2023 10:36:39 Diagnosis: Sinus rhythm Left anterior fascicular block Abnormal ECG no stemi Confirmed by DARNELL YIN MD ([id number]), material expeditor ANNETTE ROSALES ([id number]) on10/24/2023 10:36:37 AM Test Reason : Other - Specify Location : 402 : [facility] [id number] Overread By : DARNELL YIN MD Edited By : ANNETTE ROSALES Referred By : , Acquired by : [id number], us Generic External Data Provider ECG ORDERABLES F inal Result [facility] documented in this encounter Visit Diagnoses Not on filedocumented in this encounter Care Teams Graphic Art Technician Relationship Specialty Start Date End Date Mounika Brooke MD [address] [place] [address] PCP - General Family Medicine 07/27/23 Mounika Brooke MD [address] [place] [address] PCP - [facility] 01/20/24 08/20/24 Mounika Brooke MD [address] [place] [address] PCP - [facility] 11/19/24 Deann Calles LPN [address] [place] [address] Licensed Practical Nurse Family Medicine 09/26/2302/27 Jennifer Orta PA [address] [place] [address] Physician Marble Polisher Hand Family Medicine 06/24/24 Janice Kevin LSW [address] [place] [address] Labor/Excavator Family Medicine 12/04/24 12/10/24 Annette Vega, RN [address] [place] [address] Registered Nurse Family Medicine 04/09/25 Janice Kevin LSW [address] [place] [address] Labor/Excavator Family Medicine 04/10/25 documented as of this encounter
--- OUTSIDE RECORDS SUMMARY | 2025-06-04 13:54 | XMS_ITS | Encounter Summary ---
Author Organization [facility] Address [address] [place] [address] Care Team Providers Care Food Cashier Name Role Phone Mounika Brooke MD Primary Care Provider Jennifer Orta Unavailable Mounika Brooke MD Unavailable [phone] Annette Vega RN Unavailable [phone] Janice Kevin TRUST EVALUATION SUPERVISOR Unavailable Encounter Details Date Type Department Care Team (Late st Contact Info) Description 06/02/2025 Bamboo flowsheet [facility] [address] [place] [address] Perlita Wills MD [address] [place] [address] Social History Tobacco Use Types [...] Recorded Patient Health Questionnaire-2 Score 1 12/04/2024 [facility] [place] of Occupat ional Health - Occupational Stress [...] any time in the past 12 m [facility], were you homeless or living in a snf (including now)? No 04/11/2025 Sex and Gender [...] Office Visit [facility] [place] [facility] [address] [place] [address] Kayla Sweeney MD [address] [place] [address] 12/01/2025 8:30 AM EDT Office Visit [facility] [address] [place] [address] Perlita Wills MD [address] [place] [address] documented as of this encounter Visit Diagnoses Not on filedocumented in this encounter Care Teams Food Cashier Relationship Specialty Start Date End Date Mounika Brooke MD [address] [place] [address] PCP - General Family Medicine 07/27/23 Mounika Brooke MD [address] [place] [address] PCP - [facility] 11/19/24 Jennifer Orta PA [address] [place] [address] Physician Percher Family Medicine 06/24/24 Annette Vega, RN [address] [place] [address] Registered Nurse Family Medicine 04/09/25 Janice Kevin LSW [address] [place] [address] Frontload Driver Family Medicine 04/10/25 documented as of this encounter
--- OUTSIDE RECORDS SUMMARY | 2025-06-04 13:54 | XMS_ITS ---
Author Organization [facility] Address [address] [place] [address] Care Team Providers Care Continuity Clerk Name Role Phone Mounika Brooke MD Primary Care Provider [phone] Jennifer Orta Unavailable [phone] Mounika Brooke MD Unavailable [phone] Annette Vega RN Unavailable [phone] Janice Kevin Unavailable Chronic Care Management (CCM) Status:Enrolled (Active) Start date:04/09/2025 Enrollment date:04/09/2025 Overview Please assess for Care Management needs. 04/09/25, 2:41 PM - Annette Vega RN- Patient gives verbal consent to be enrolled in CCM Program and understands there could be a bill for this service. Case Team Name Relationship Phone Annette Vega RN(Responsible Staff) Noemi Peterson [phone] Janice SANTIAGO Fiberglass Tube Molder [phone] Continued Care and Services Coordination
--- OUTSIDE RECORDS SUMMARY | 2025-06-04 13:54 | XMS_ITS | Encounter Summary ---
Author Organization [facility] Address [address] [place] [address] Care Team Providers Care Food Service Order Clerk Name Role Phone Migue Stroud MD Primary Care Provider Mounika Brooke MD Primary Care Provider [phone] Deann Calles LPN Unavailable Mounika Brooke MD Unavailable [phone] Jennifer Orta Unavailable [phone] Mounika Brooke MD Unavailable [phone] Janice Kevin SOLUTION DESIGN AND ANALYSIS MANAGER Unavailable Annette Vega RN Unavailable Janice Kevin SOLUTION DESIGN AND ANALYSIS MANAGER Unavailable Encounter Details Date Type Department Care Team (Late st Contact Info) Description 05/17/2023 Abstract [facility] [address] [facility] [address] [place] [address] Sukh Harrington, DPM FACFAS [address] [facility] [place] [address] Social History Tobacco Use Types Packs/Day Years [...] Visit [facility] [place] [facility] [address] [place] [address] Kayla Sweeney MD [address] [place] [address] 12/01/2025 8:30 AM EDT Office Visit [facility] [address] [place] [address] Perlita Wills MD [address] [place] [address] documented as of this encounter Visit Diagnoses Not on filedocumented in this encounter Care Teams Food Service Order Clerk Relationship Specialty Start Date End Date Migue Stroud MD [address] [place] [address] PCP - General Family Medicine 04/03/23 07/26/23 Mounika Brooke MD [address] [place] [address] PCP - General Family Medicine 07/27/23 Mounika Brooke MD [address] [place] [address] PCP - [facility] 01/20/24 08/20/24 Mounika Brooke MD [address] [place] [address] PCP - [facility] 11/19/24 Deann Calles LPN [address] [place] [address] Licensed Practical Nurse Family Medicine 09/26/2302/27 Jennifer Orta PA [address] [place] [address] Physician Galvanizing Pot Runner Family Medicine 06/24/24 Janice Kevin LSW [address] [place] [address] Welcome Center Agent Family Medicine 12/04/24 12/10/24 Annette Vega, RAFAEL [address] [place] [address] Registered Nurse Family Medicine 04/09/25 Janice Kevin LSW [address] [place] [address] Welcome Center Agent Family Medicine 04/10/25 documented as of this encounter
--- OUTSIDE RECORDS SUMMARY | 2025-06-04 13:54 | XMS_ITS | Encounter Summary ---
Author Organization [facility] Address [address] [place] [address] Care Team Providers Care Char Conveyor Tender Cellar Name Role Phone Mounika Brooke MD Primary Care Provider Mounika Brooke MD Unavailable Jennifer Short Unavailable [phone] Mounika Brooke MD Unavailable Janice Kevin COMPUTER SUPPORT SPECIALIST INSTRUCTOR Unavailable Annette Vega RN Unavailable Janice Kevin COMPUTER SUPPORT SPECIALIST INSTRUCTOR Unavailable Encounter Details Date Type Department Care Team (Late st Contact Info) Description 06/21/2024 Clinisync Result Encounter [facility] External Department Unsolicited Jennifer Short PA [address] [place], [place] [id number] Social History Tobacco Use Types Packs/Day Years [...] Description 06/05/2025 1:10 PM EDT Office Visit [facility] [address] [place] [address] Kayla Sweeney MD [address] [place] [address] 12/01/2025 8:30 AM EDT Office Visit [facility] [address] [place] [address] Perlita Wills MD [address] [place] [address] documented as of this encounter Procedures Procedure [...] on filedocumented in this encounter Care Teams Char Conveyor Tender Cellar Relationship Specialty Start Date End Date Mounika Brooke MD [address] [place] [address] PCP - General Family Medicine 07/27/23 Mounika Brooke MD [address] [place] [address] PCP - [facility] 01/20/24 08/20/24 Mounika Brooke MD [address] [place] [address] PCP - [facility] 11/19/24 Jennifer Short PA [address] [place] [address] Physician Bowling Ball Finisher Family Medicine 06/24/24 Janice Kevin LSW [address] [place] [address] Frame Operator Family Medicine 12/04/24 12/10/24 Annette Vega, RAFAEL [address] [place] [address] Registered Nurse Family Medicine 04/09/25 Janice Kevin LSW [address] [place] [address] Frame Operator Family Medicine 04/10/25 documented as of this encounter
--- OUTSIDE RECORDS SUMMARY | 2025-06-04 13:54 | XMS_ITS | Encounter Summary ---
Author Organization [facility] Address [address] [place] [address] Care Team Providers Care Custom Shop Worker Name Role Phone Mounika Brooke MD Primary Care Provider Jennifer Orta Unavailable [phone] Mounika Brooke MD Unavailable Annette Vega RN Unavailable [phone] Janice Kevin CASE PICKER Unavailable Encounter Details Date Type Department Care Team (Late st Contact Info) Description 03/26/2025 Orders Only [facility] [address] [place] [address] Kayla Sweeney MD [address] [place] [address] Social History Tobacco Use Types Packs/Day Years [...] Description 06/05/2025 1:10 PM EDT Office Visit [facility] [address] [place] [address] Kayla Sweeney MD [address] [place] [address] 12/01/2025 8:30 AM EDT Office Visit [facility] [address] [place] [address] Perlita Wills MD [address] [place] [address] documented as of this encounter Procedures Procedure [...] * LIPID PANEL (03/26/2025 3:35 PM EDT) Kayla Sweeney MD [...] on filedocumented in this encounter Care Teams Custom Shop Worker Relationship Specialty Start Date End Date Mounika Brooke MD [address] [place] [address] PCP - General Family Medicine 07/27/23 Mounika Brooke MD [address] [place] [address] PCP - [facility] 11/19/24 Jennifer Orta PA [address] [place] [address] Physician Numerical Control Drill Press Operator Family Medicine 06/24/24 Annette Vega, RN [address] [place] [address] Registered Nurse Family Medicine 04/09/25 Janice Kevin LSW [address] [place] [address] Analytical Scientist Family Medicine 04/10/25 documented as of this encounter
--- OUTSIDE RECORDS SUMMARY | 2025-06-04 13:54 | XMS_ITS | Clinical Summary ---
Author Organization [facility] Address [address] [place] [address] Care Team Providers Care Air Crew Supervisor Name Role Phone Mounika Brooke MD Primary Care Provider Jennifer Orta Unavailable Mounika Brooke MD Unavailable [phone] Annette Vega RN Unavailable [phone] Janice Kevin SUPERINTENDENT GEOPHYSICAL LABORATORY Unavailable Allergies Active Allergy Reactions Criticality Noted Date Comments Penicillamine Unknown 06/13/2023 Penicillins Rash Medium 12/01/2014 Medications albuterol HFA 90 mcg/act inhaler Inhale 2 puffs every 4 (four) hours if needed. 11/04/19 23 Active Continuous Blood Gluc Smt Operator (FreeStyle Sage 3 [place]) deviceIndication s:Type 2 diabetes mellitus with hyperglycemia, [...] 27 mL 1 12/26/19 25 025 Active glucose blood (OneTouch Verio) test stripIndications :Type 2 diabetes mellitus [...] MINI PEN NEEDLES 31G X 5 MM misc USE TO INJECT INSULIN UP TO 3 TIMES PER DAY 12/22/19 25 Active cyclobenzaprine (Flexeril) 10 MG tabletIndication s:Neck pain Take 1 tablet (10 mg) by mouth at bedtime 30 tablet 04/29/20 25 Active DULoxetine (Cymbalta) [address] capsuleIndicatio ns:Anxiousness Take 2 capsules (120 mg) by mouth Daily 180 capsule 3 04/29/20 25 026 Active Additional Information Patient taking differently: 60 mgOral Daily, Reason: Side effects (felt too drowsy on 2 tabs), Reported on 05/13/2025 hydrALAZINE (Apresoline) 10 MG tabletIndication s:Anxiousness Take 1 tablet (10 mg) by mouth every 12 (twelve) hours 180 tablet 3 01/23/20 25 025 Discontin ued(Thera py completed ) Active Problems Problem Noted Date Diagnosed Date [...] 06/13/2023 07/03/2023 Pain in right knee 06/13/2023 Polyneuropathy due to type 2 diabetes mellitus 06/13/2023 07/03/2023 Type 2 diabetes mellitus 06/13/2023 Type 2 diabetes mellitus with morbid obesity 07/03/2023 Overview (06/13/2023): linked DM with HLD per outpatient CDI policy. 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, unspecified proliferative retinopathy type (HCC) (Primary Dx); 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 1 diabetes mellitus (HCC) 06/02/2025 Bamboo flowsheet [facility] [address] [place] [address] Perlita Wills MD 06/02/2025 Travel 05/26/2025 Patient Outreach [facility] [address] [place] [address] Janice Kevin LSW 05/13/2025 Patient Outreach [place] [address] [address] Annette Vega, RAFAEL 04/29/2025 11:00 AM EDT Office Visit [facility] [address] [place] [address] Mounika Brooke MD Grief (Primary Dx); Anxiousness; Neck pain; Type 2 diabetes mellitus with hyperglycemia, with long-term current use of insulin (HCC); Essential (primary) hypertension ; Morbid obesity ([facility]-HCC); BMI 36.0-36.9,adult 04/29/2025 Bamboo flowsheet [place] [address] [place] [address] Mounika Brooke MD 04/29/2025 Travel 04/28/2025 Patient Outreach [facility] [address] [place] [address] Janice Kevin LSW 04/22/2025 Patient Outreach [place] [address] [place] [address] Annette Vega, RAFAEL 04/14/2025 Patient Outreach [facility] [address] [place] [address] Janice Kevin LSW 04/11/2025 Patient Outreach [facility] [address] [place] [place] [address] Annette Vega, RAFAEL 04/09/2025 Patient Outreach [facility] [address] [place] [place] [address] Annette Vega, RAFAEL 04/08/2025 Patient Outreach [facility] [address] [place] [place] [address] Janice Kevin LSW 04/02/2025 Patient Outreach [facility] [address] [place] [place] [address] Annette Vega, RAFAEL 03/31/2025 Patient Outreach [facility] [address] [place] [place] [address] Annette Vega RN 03/26/2025 Orders Only [facility] [address] [place] [address] Kyala Sweeney MD 03/26/2025 [facility] [address] [place] [address] Annette Vega, RAFAEL 03/24/2025 Patient Outreach [facility] [address] [place] [place] [address] Annette Vega, RAFAEL 03/24/2025 Patient Outreach [facility] [address] [place] [place] [address] Janice Kevin LSW 03/24/2025 Telephone [facility] [place] [address] [place] [address] Mounika Brooke MD Care Coordination 03/19/2025 Patient Outreach [facility] [address] [place] [place] [address] Janice Kevin LSW 03/17/2025 Patient Outreach [facility] [address] [place] [address] Annette Vega, RAFAEL 03/14/2025 Patient Outreach [facility] [address] [place] [address] Janice Kevin, SUPERINTENDENT GEOPHYSICAL LABORATORY 03/13/2025 12:20 PM EDT Office Visit [place] [address] [place] [address] Mounika Brooke MD Hospital discharge follow-up (Primary Dx); Type 2 diabetes mellitus with hyperglycemia, with long-term current use of insulin (HCC); Hyperosmolar hyperglycemic state (HHS) (HCC); Muscle cramps; Long-term insulin use (HCC); Difficulty walking; Essential (primary) hypertension ; Morbid obesity ([facility]-HCC); BMI 38.0-38.9,adult 03/13/2025 Telephone [place] [address] [place] [address] Mounika Brooke MD Care Coordination 03/13/2025 Bamboo flowsheet [place] [address] [place] [address] Mounika Brooke MD 03/13/2025 Travel 03/11/2025 Patient Outreach [place] [address] [place] [address] Grecia Mcneil LPN from Last 3 Months Immunizations Immunization Administration [...] Recorded Patient Health Questionnaire-2 Score 1 12/04/2024 [facility] of Occupat ional [facility] - Occupational Stress Questionnaire Answer [...] any time in the past 12 m [facility], were you homeless or living in a care home (including now)? No 04/11/2025 Sex and Gender [...] 04/29/2025 11:28 AM EDT Plan of Treatment Upcoming Encounters Date Type Department Care Team (Late st Contact Info) Description 06/05/2025 1:10 PM EDT Office Visit [facility] [address] [place] [address] Kayla Sweeney MD [address] [place] [address] 12/01/2025 8:30 AM EDT Office Visit [facility] [address] [place] [address] Perlita Wills MD [address] [place] [address] Health Maintenance Due Date Last Done Comments CT Colonography 1959 Colonoscopy 1959 Colorectal Cancer Screening 1959 FIT-DNA 1959 FIT 1959 FOBT 1959 Sigmoidoscopy 1959 Diabetes: Hemoglobin A1C 12/03/2024 025, 06/21/2024, 10/24/2023 Influenza Vaccine (#1) 2025 , 05/22/2023, 06/17/2022, Additional history exists Diabetes: Urine Protein Screening 03/26/2026 03/26/2025, 03/13/2025, 08/09/2023 (Manually Satisfied by [employer]) Diabetes: Retinopathy Screening 06/02/2026 06/02/2025, 06/02/2025, 06/02/2025, Additional history exists Pneumococcal Vaccine: 65+ Years Completed 12/04/2024, 08/07/2018, [...] VITAMIN D, 25-HYDROXY (03/26/2025 3:35 PM EDT) us Kayla Sweeney MD LAB BLOOD ORDERABLES Final Re sult * Microalbumin / creatinine urine ratio (03/26/2025 3:35 PM EDT) Only the most recent of2 resultswithin the time period is included. Urine Urine specimen obtained by clean catch procedure / Unknown us Kayla Sweeney MD LAB URINE ORDERABLES Final Re sult * C-peptide (03/26/2025 3:35 PM EDT) Blood Venous blood specimen / Unknown Result Fatuma Sweeney MD LAB BLOOD ORDERABLES Final Re sult * Renal function panel (03/26/2025 3:35 PM EDT) Blood Venous blood specimen / Unknown Result [facility] us Kayla Sweeney MD LAB BLOOD ORDERABLES Final Re sult * POCT glycosylated hemoglobin (Hb A1C) docked device (09/04/2024 2:02 PM EST) Hemoglobin A1C 12.9 Blood Venous blood specimen / Unknown 09/04/2024 2:02 PM EST Result Fatuma Sweeney MD POINT OF CARE TEST ENTER/EDIT ORDERABLES Final Result from Last 3 Months or Most Recently Relevant to Health Maintenance Insurance MEDICAID [place] [facility] Care Teams Air Crew Supervisor Relationship Specialty Start Date End Date Mounika Brooke MD [address] [place] [address] PCP - General Family Medicine 07/27/23 Mounika Brooke MD [address] [place] [address] PCP - Devoted 11/19/24 Jennifer Orta PA [address] [place] [address] Physician Bridge Repairer Family Medicine 06/24/24 Annette Vega, RN [address] [place] [address] Registered Nurse Family Medicine 04/09/25 Janice Kevin LSW [address] [place] [address] Milking Worker Family Medicine 04/10/25
--- OUTSIDE RECORDS SUMMARY | 2025-06-04 13:54 | XMS_ITS | Encounter Summary ---
Author Organization [facility] Address [address] [place] [address] Care Team Providers Care Online Marketer Name Role Phone Mounika Brooke MD Primary Care Provider Jennifer Orta Unavailable [phone] Mounika Brooke MD Unavailable Annette Vega RN Unavailable [phone] Janice Kevin Unavailable Encounter Details Date Type Department Care Team (Late st Contact Info) Description 05/26/2025 Patient Outreach [facility] [address] [place] [address] Janice Kevin LSW [address] [place] [address] Social History Tobacco Use Types Packs/Day Years [...] Recorded Patient Health Questionnaire-2 Score 1 12/04/2024 [facility] of Occupat ional Health - Occupational Stress [...] any time in the past 12 m [facility], were you homeless or living in a mcc (including now)? No 04/11/2025 Sex and Gender Information Value Date Recorded Sex Assigned at Not on file Legal Sex Male 7:40 PM EDT Gender Identity Not on file Sexual Orientation Not on file documented as of this encounter Progress Notes * JACK Murphy - 05/26/2025 2:39 PM EDT SW contacted pt for monthly monitor and he states he is doing ok. Reports it's been a month since the passing of his daughter and he states he still tries not to think about it or he will break down and cry. Reports it has helped with son moving in and they will be moving to another appt complex, [facility], at the beginning of next month. He is scheduled with DM specialist on 05/29. Reports he has been getting some cramps in his legs and they have been aching so he has been using heating pad which helps. Denies any needs and appreciative of check in call. documented in this encounter Plan of Treatment Upcoming Encounters Date Type Department Care Team (Late st Contact Info) Description 06/05/2025 1:10 PM EDT Office Visit [facility] [place] [facility] [address] [place] [address] Kayla Sweeney MD [address] [place] [address] 12/01/2025 8:30 AM EDT Office Visit [facility] [address] [place] [address] Perlita Wills MD [address] [place] [address] documented as of this encounter Visit Diagnoses Diagnosis Type 2 diabetes mellitus with hyperglycemia, with long-term current use of insulin (HCC)- Primary Primary osteoarthritis, unspecified site documented in this encounter Care Teams Online Marketer Relationship Specialty Start Date End Date Mounika Brooke MD [address] [place] [address] PCP - General Family Medicine 07/27/23 Mounika Brooke MD [address] [place] [address] PCP - Devoted 11/19/24 Jennifer Orta PA [address] [place] [address] Physician Hot Tar Roofer Family Medicine 06/24/24 Annette Vega, RAFAEL [address] [place] [address] Registered Nurse Family Medicine 04/09/25 Janice Kevin LSW [address] [place] [address] Coil Finisher Family Medicine 04/10/25 documented as of this encounter
--- OUTSIDE RECORDS SUMMARY | 2025-06-04 13:54 | XMS_ITS | Encounter Summary ---
Author Organization [facility] Address [address] [place] [address] Care Team Providers Care Welder Helper Name Role Phone Mounika Brooke MD Primary Care Provider [phone] Jennifer Orta Unavailable [phone] Mounika Brooke MD Unavailable [phone] Annette Vega RN Unavailable [phone] Janice Kevin RN GYN Unavailable Encounter Details Date Type Department Care Team (Latest Contact Info) Description 06/02/2025 Travel Social History Tobacco Use Types Packs/Day [...] Recorded Patient Health Questionnaire-2 Score 1 12/04/2024 [facility] of Occupat ional Health - Occupational Stress [...] any time in the past 12 m [facility], were you homeless or living in a penitentiary (including now)? No 04/11/2025 Sex and Gender [...] [facility] [address] [place] [address] Kayla Sweeney MD [address] [place] [address] 12/01/2025 8:30 AM EDT Office Visit [facility] [address] [place] [address] Perlita Wills MD [address] [place] [address] documented as of this encounter Visit Diagnoses Not on filedocumented in this encounter Care Teams Welder Helper Relationship Specialty Start Date End Date Mounika Brooke MD [address] [place] [address] PCP - General Family Medicine 07/27/23 Mounika Brooke MD [address] [place] [address] PCP - Devoted 11/19/24 Jennifer Orta PA [address] [place] [address] Physician Water Treatment Plant Supervisor Family Medicine 06/24/24 Annette Vega, RN [address] [place] [address] Registered Nurse Family Medicine 04/09/25 Janice Kevin LSW [address] [place] [address] Food And Beverage Associate Family Medicine 04/10/25 documented as of this encounter
--- OUTSIDE RECORDS SUMMARY | 2025-06-04 13:55 | XMS_ITS | Encounter Summary ---
Author Organization [facility] Address [address] [place] [address] Phone Care Team Providers Care Technical Producer Name Role Phone Mounika Brooke MD Primary Care Provider [phone] Encounter Details Date Type Department Care Team (Late st Contact Info) Description 10/06/2023 Scanned Document [facility] [address] [place] [address] Scanning, Generic Provider Social History Tobacco Use [...] on filedocumented in this encounter Care Teams Technical Producer Relationship Specialty Start Date End Date Mounika Brooke MD [address] [place] [address] PCP - General Family Medicine 11/02/23 documented as of this encounter
--- OUTSIDE RECORDS SUMMARY | 2025-06-04 13:55 | XMS_ITS | Encounter Summary ---
Author Organization [facility] Address [address] [place] [address] Phone Care Team Providers Care Eligibility Technician Name Role Phone Mounika Brooke MD Primary Care Provider [phone] Encounter Details Date Type Department Care Team (Late st Contact Info) Description 11/11/2023 Scanned Document [facility] [address] [place] [address] Scanning, Generic Provider Social History Tobacco Use [...] on filedocumented in this encounter Care Teams Eligibility Technician Relationship Specialty Start Date End Date Mounika Brooke MD [address] [place] [address] PCP - General Family Medicine 11/02/23 documented as of this encounter
--- OUTSIDE RECORDS SUMMARY | 2025-06-04 13:55 | XMS_ITS | Continuity of Care Document ---
Author Organization [facility] Address [address] [place] [address] Phone [phone] Care Team Providers Care Teller Coordinator Name Role Phone Nito Brooke DO Care Team Information Light Rail Vehicle Operator [phone] Assessments Date Code Description Provider 09/14/2023 N17.9 [...] N18.31 Chronic kidney disease, stag e 3a Flkaitajojo Lugo.D. 06/14/2023 N17.9 Acute kidney failure, unspec [...]
--- OUTSIDE RECORDS SUMMARY | 2025-06-04 13:55 | XMS_ITS | Clinical Summary ---
Author Organization [facility] Address [address] [place] [address] Care Team Providers Care Superintendent Container Terminal Name Role Phone Mounika Brooke MD Primary Care Provider [phone] Debora Levi MD Unavailable [phone] Allergies Active Allergy Reactions Criticality Noted Date [...] (10/26/2023 3:23 PM EST): BP controlled Continue SPECTROGRAPH OPERATOR hydralazine Restless leg syndrome Assessment & Plan [...] COVID-19 vaccine, age 12+ yr , bivalent (CorpU-BIONTAIM) 06/17/2022 influenza (IIV4) vaccine, ag e 6 [...] is lower risk 7 11/23/2023 Data from: https://[email or web address]/ . Last address used for calculation [address] [facility] 11/23/2023 Sex and Gender Information Value Date [...] 08/07/2018, 08/07/2018, 11/24/2015 Advance Directive Discussion 08/21/2024 Covid-19 Vaccine (5 - 2024-2 6 season) 2025 06/17/2022, 07/27/2021, 12/03/2020, Additional history [...] METABOLIC PANEL (10/27/2023 5:18 AM EST) Pathologist [facility] Protein, Total 6.3 6.3 - 8.0 g/dL 10/27/2023 6:05 AM [facility] Albumin 3.3(L) 3.9 - 4.9 g/dL 10/27/2023 6:05 AM EST [facility] Calcium, Total 9.1 8.5 - 10.2 mg/dL 10/27/2023 6:05 AM EST [facility] Bilirubin, Total 0.6 0.2 - 1.3 mg/dL 10/27/2023 6:05 AM EST [facility] Alkaline Phosphatase 88 38 - 113 U/L 10/27/2023 6:05 AM [facility] AST 11(L) 14 - 40 U/L 10/27/2023 6:05 AM [facility] ALT 11 10 - 54 U/L 10/27/2023 6:05 AM [facility] Glucose 145(H) 74 - 99 mg/dL 10/27/2023 6:05 AM [facility] Comment: The [place] Diabetes Association (ADA) provides guidance for cutoff [...] Standards of Medical Care in Diabetes 2016, [place] Diabetes Association. Diabetes Care. 2016.39(Suppl 1). BUN 40(H) 9 - 24 mg/dL 10/27/2023 6:05 AM [facility] Creatinine 1.62(H) 0.73 - 1.22 mg/dL 10/27/2023 6:05 AM [facility] Sodium 144 136 - 144 mmol/L 10/27/2023 6:05 AM [facility] Potassium 4.1 3.7 - 5.1 mmol/L 10/27/2023 6:05 AM [facility] Chloride 100 97 - 105 mmol/L 10/27/2023 6:05 AM [facility] CO2 35(H) 22 - 30 mmol/L 10/27/2023 6:05 AM [facility] Anion Gap 9 9 - 18 mmol/L 10/27/2023 6:05 AM [facility] Estimated Glomerular Filtration Rate 47(L) >=60 mL/min/1. 73m 10/27/2023 6:05 AM [facility] Comment:Estimated Glomerular Filtration Rate (eGFR) is [...] 5:18 AM EST 10/27/2023 5:24 AM EST us Juan Antonio Stewart MD LABORATORY Final Result [facility] [address] [place] [address], * LIPID PANEL BASIC (10/25/2023 6:27 AM EST) Pathologist [facility] Cholesterol, Total 104 <200 mg/dL 10/25/2023 9:13 AM EST [facility] Comment: <200 mg/dL, Desirable 200-239 mg/dL, Borderline high >239 mg/dL, High Triglyceride 52 <150 mg/dL 10/25/2023 9:13 AM [facility] Comment: <150 mg/dL, Normal 150-199 mg/dL, Borderline high 200-499 mg/dL, High >499 mg/dL, Very high HDL Cholesterol 61 >39 mg/dL 9:13 AM [facility] Comment: 40-59 mg/dL, Acceptable >59 mg/dL, High: Negative risk factor for coronary heart disease <40 mg/dL, Low: Positive risk factor for coronary heart disease Non HDL Cholesterol 43 <130 mg/dL 10/25/2023 9:13 AM [facility] Comment: <130 mg/dL, Optimal 130-159 mg/dL, Near optimal/above optimal 160-189 mg/dL, Borderline high 190-219 mg/dL, High >219 mg/dL, Very high Secondary prevention optimal non HDL Cholesterol levels are recommended to be <100 mg/dL Fasting Time 12 hrs 10/25/2023 9:13 AM [facility] VLDL Cholesterol 10 <30 mg/dL 10/25/19 9:13 AM [facility] TC:HDL Ratio 1.70 <5.10 10/25/2023 9:13 AM [facility] LDL Cholesterol, Calculated 33 <100 mg/dL 10/25/2023 9:13 AM [facility] Comment: <100 mg/dL, Optimal 100-129 mg/dL, Near optimal/above optimal 130-159 mg/dL, Borderline high 160-189 mg/dL, High >189 mg/dL, Very high Secondary prevention optimal LDL Cholesterol levels are recommended to be < 70 mg/dL LDL:HDL Ratio 0.54 <2.54 10/25/2023 9:13 AM [facility] Comment: Reference: 1. National Cholesterol Education Program ATP III Guideline At-A-Glance Quick Desk Reference: National Heart, Lung, and Blood [place]. National Institutes of Health. 2001: NIH Publication No. 01-3305. 2. An International Atherosclerosis Society position paper: global recommendations for the management of dyslipidemia: executive summary, Atherosclerosis. 2014: 232(2):410-413. Blood BLOOD SPECIMEN / Unknown Venipuncture / Unknown 10/25/2023 6:27 AM EST 10/25/2023 6:40 AM EST us Ashley Knowles PAPERBOARD BOXES ESTIMATOR.PADDLE DYEING MACHINE OPERATOR LABORATORY Final Re sult [facility] [address] [place] [address], from Last 3 Months or Most Recently Relevant to Health Maintenance Insurance MEDICARE Care Teams Superintendent Container Terminal Relationship Specialty Start Date End Date Mounika Brooke MD [address] [place] [address] PCP - General Family Medicine 10/23/23 [place] [address] [facility] [address] [place] [address] Physician Nephrology 10/31/23
--- OUTSIDE RECORDS SUMMARY | 2025-06-04 13:55 | XMS_ITS | Encounter Summary ---
Author Organization [facility] Address [address] [place] [address] Phone Care Team Providers Care Chimney Sweeper Name Role Phone Mounika Brooke MD Primary Care Provider [phone] Encounter Details Date Type Department Care Team (Late st Contact Info) Description 10/07/2023 Scanned Document [facility] [address] [place] [address] Scanning, Generic Provider Social History Tobacco Use [...] on filedocumented in this encounter Care Teams Chimney Sweeper Relationship Specialty Start Date End Date Mounika Brooke MD [address] [place] [address] PCP - General Family Medicine 11/02/23 documented as of this encounter
--- OUTSIDE RECORDS SUMMARY | 2025-06-04 13:55 | XMS_ITS | Patient Health Record ---
Author Organization [facility] es Address [address] [place] [address] Care Team Providers Care Customer Sales Advisor Name Role Phone Vargaskt Paresh Primary Care Provider Dania Mario Allergies Allergen (clinical drug ingredient) Drug/Non Drug Allergy documented on EMR Reaction Allergy Type Onset Date Status Penicillin Unknown Drug Allergy Active Reason For Referral No Information Encounters Encounter Location Date Provider Diagnosis [facility] [address] [place] [address] 08/16/2024 Paresh Helm [facility] [address] [address] 09/09/2024 Paresh Helm Complete loss of teeth, unspecified cause, class I K08.101 [facility] [address] [place] [address] 07/12/2024 Paresh Helm Other dental proc edure [...] Coverage End Date [place] [address] [place] [phone] [id number] MONTRELL LORA Self - patient is the insured 2 2 [employer] [place] [employer] [address] [place]OD[place]IGUE[place] [phone] [id number] MONTRELL LORA Self - patient is the insured 3 4 B MEDICAID [facility] [address] [place] [phone] [id number] MONTRELL LORA Self - patient is the insured 3 DENTAL [facility] DUAL [address] [address] [place] [id number] MONTRELL LORA Self - patient is the insured 4
--- OUTSIDE RECORDS SUMMARY | 2025-06-04 13:55 | XMS_ITS | Encounter Summary ---
Author Organization [facility] Address [address] [place] [address] Phone Care Team Providers Care Inventory Control Specialist Name Role Phone Mounika Brooke MD Primary Care Provider [phone] Encounter Details Date Type Department Care Team (Late st Contact Info) Description 11/17/2023 Scanned Document [facility] [address] [place] [id number] Scanning, Generic Provider Social History Tobacco Use [...] on filedocumented in this encounter Care Teams Inventory Control Specialist Relationship Specialty Start Date End Date Mounika Brooke MD [address] [place] [address] PCP - General Family Medicine 11/02/23 documented as of this encounter
--- OUTSIDE RECORDS SUMMARY | 2025-06-04 13:55 | XMS_ITS | Clinical Summary ---
Author Organization [facility] Address [address] [place] [address] Phone Care Team Providers Care [employer]orer [employer] Name Role Phone Mounika Brooke MD Primary Care Provider [phone] Allergies Active Allergy Reactions Criticality Noted Date [...] (obstructive sleep apnea) 07/03/2023 Absence of toe 06/13/2023 Overview (11/14/2023): noted on 12/09/2018 XR Foot 3+ Views Right. added per outpatient CDI policy. 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 added per outpatient CDI policy. Cramps of lower extremity 06/13/2023 Diabetic neuropathy 06/13/2023 Gastroesophageal reflux disease 06/13/2023 Morbid obesity 06/13/2023 Lymphedema of both lower extremities 06/13/2023 Hyperlipidemia 06/13/2023 Status post transmetatarsal amputation of left f oot 06/13/2023 Stage 3b chronic kidney disease 06/13/2023 Overview (11/14/2023): Last Assessment & Plan: See [...] Last Assessment & Plan: BP controlled Continue NREMT hydralazine Primary osteoarthritis 06/13/2023 Osteoarthritis of knee 06/13/2023 Onychomycosis 06/13/2023 Type 2 diabetes mellitus with hyperglycemia 05/22 Varicose veins of lower extremity 06/13/2023 Immunizations [...] Hemoglobin A1C 01/24/2024 10/24/2023 Echocardiogram 10/07/2024 10/07/2023 Influenza Vaccine (#1) 2025 , 06/17/2022, 07/20/2021, Additional history exists COVID-19 Vaccine ( season) 2025 06/17/2022, 07/27/2021, 12/03/2020, Additional history exists HIB Vaccines Aged Out [...] Recently Relevant to Health Maintenance Insurance MEDICAID [employer] [facility] MEDICAID [employer] [facility] Care Teams [employer]orer [employer] Relationship Specialty Start Date End Date Mounika Brooke MD [address] [place] [address] PCP - General Family Medicine 11/02/23
--- OUTSIDE RECORDS SUMMARY | 2025-06-04 14:00 | XMS_ITS | CCD ---
Author Organization [facility] Inform ion Partnership [facility] Care Team Providers Care T[employer] Servicer Name Role Phone Migue STROUD Primary Care Physician Mounika Brooke Primary Care Physician [phone] Bowen Fan Unavailable Unavailable DO Reid Brooke. Primary Care Provider DO Art Kirby Emergency Provider DO Alban Chavez Admit Provider [phone] DO Alban Arrington Attending Provider MD Amrik De Guzman Other Provider MD Migue Stroud Primary Care Provider [phone] REID BROOKE Primary Care Physician Mounika Brooke MD Primary Care Provider MD Mounika Willoughby Primary Care Provider DO Jason Mercado Emergency Provider DO Tera Nevarez Admit Provider DO Tera Nevarez Attending Provider [phone] MD Hood Zacarias Other Provider MD Yesi Murphy Attending Provider [phone] PIPPA DONAHUE Consulting Unavailable BSTAY WELLER Admitting Unavailable TAY STEWART Attending Unavailable MOUNIKA BROOKE Primary Care Unavailable Mounika Brooke MD Primary Care Provider [phone] Gurmeet LYMAN, Naun Unavailable MD Mounika Brooke Primary Care Provider [phone] DO Jason Mercado M Emergency Provider DO Tera Nevarez Admit Provider MD Hood Zacarias Other Provider MD Yesi Murphy Attending Provider [phone] SOFIE Alexander Other Provider Unavailable MD Bladimir Story Other Provider MD Immaunel Pozo Other Provider [phone] MD Satnam Guevara Other Provider MD Gigi Cooper Other Provider MD Manish Fu Attending Provider Mounika Brooke MD Primary Care Provider Mendy LYMAN, Mounika Lugo Unavailable Marivel ROWAN, Jennifer Nunez Unavailable Smooth Harrington Attending Unavailable Dolce, Smooth Elizondo Attending Unavailable Hajdari, Astrit H Attending Unavailable COOK, Taz P Referring Unavailable COOK, Taz P Admitting Unavailable COOK, Taz P Attending Unavailable COOK, Taz P Attending Unavailable COOK, Taz P Referring Unavailable COOK, Taz P Admitting Unavailable COOK, Taz P Admitting Unavailable COOK, Taz P Attending Unavailable [facility] Cardio, XXXX Consulting Unavailable Moussawi, Ahmad Admitting [...] Primary Care Provider Mounika Brooke MD Unavailable [facility], Janice Unavailable [facility], Janice Unavailable Nicole Myers Attending Unavailable Corky Luo Attending Unavailable Toni Gutierrez. Attending Unavailable Toni Gutierrez Admitting Unavailable Nicole Myers Attending Unavailable Corky Luo Attending Unavailable Dwight Shaffer Attending Unavailable Dwight Shaffer Admitting Unavailable Mendy, Mounika Primary Care Unavailable Maria Luisa Steiner. Attending Unavailable Mendy, Mouniak M Referring Unavailable Toni Gutierrez Attending Unavailable Toni Gutierrez Admitting Unavailable Jigna Suarez Attending Unavailable Jigna Suarez Admitting Unavailable Jacqueline Vega RN Unavailable [facility], Janice Unavailable Jordan MACARIO Attending Unavailable Jigna Suarez Admitting Unavailable MENDY, MOUNIKA M Attending Unavailable MONE MCGUIRE Attending Unavailable MENDY MOUNIKA M Referring Unavailable MENDY, MOUNIKA M Attending Unavailable MENDY, MOUNIKA M Attending Unavailable MENDY, MOUNIKA M Attending Unavailable MENDY, MOUNIKA M Attending Unavailable JENNIFER SHORT Attending Unavailable JENNIFER SHORT Referring Unavailable MENDY, MOUNIKA M Attending Unavailable MENDY, MOUNIKA M Attending Unavailable KAYLA SWEENEY Attending Unavailable KAYLA SWEENEY Referring Unavailable PERLITA MEEKS Attending Unavailable KAYLA SWEENEY Attending Unavailable PERLITA MEEKS Attending Unavailable Allergies Allergy Classification Reported Allergen(s) Allergy Type Date of Onset Reaction(s) Facility Penicillins (antibiotic) (4 sources) Penicillins; Translations: [penicillins] Drug Allergy Cutaneous eruption (morphologic abnormality) [facility] (20 sources) Penicillins; Translations: [penicillins] Drug allergy 5 Cutaneous eruption (morphologic abnormality), [facility] (20 sources) penicillAMINE Drug Allergy 3 Unknown [facility] Medications Current Medications Medication Drug Class(es) Dates Sig (Normalized) Sig (Original) ##### (1 source) Start: 12-28-2021 ##### 100 EA, USE TO TEST THREE TIMES DAILY Start Date: 12/28/21 Status: Ordered acetaminophen 325 mg / HYDROcodone bitartrate 5 mg oral tablet (16 sources) Opioid Agonist Start: 11-20-2023 take 1 tablet by mouth every hour Hubbard 325 mg-5 mg oral tablet See Instructions, 1 tab(s), Refill(s) 0, Take 1 hour prior to your procedure, [facility] #[id number], 183, cm, 11/20/23 12:53:00 EDT, Height/Length Dosing, [...] for pain - following procedure, [facility] #[id number], 183, cm, 11/20/23 12:53:00 EDT, Height/Length Dosing, 143.5, kg, 11/11/23 9:09:00 EDT, Weight Dosing Start Date: 11/20/23 Status: Ordered acetaZOLAMIDE 250 mg oral tablet (1 source) Carbonic Anhydrase Inhibitor Start: 11-17-2023 take 250 mg by mouth twice daily Acetazolamide Active 250 MG PO Twice daily November 17, 2023 12:00am [id number] 200 actuat albuterol 0.09 mg/actuat metered dose [...] wheezing, 30 EA, Refill(s) 5, [facility] #[id number], 182.9, cm, 03/29/22 13:07:00 EDT, Height/Length Dosing, [...] Wheezing, 18 gm, Refill(s) 11, [facility] #[id number], 182, cm, 05/08/23 10:15:00 EDT, Height/Length Dosing, 137, kg, 05/08/23 10:15:00 EDT, Weight Dosing Start Date: 05/08/23 Status: Ordered Quantity: 18.0 Unit: g Repeat number: 12 Start: 05-08-2023 take 2 puff(s) by in halation every six hours Albuterol (Eqv-ProAir HFA) 90 mcg/inh inhalation aerosol 2 puff(s), Inhalation, q6hr Wheezing, 18 gm, Refill(s) 11, [facility] #[id number], 182, cm, 05/08/23 10:15:00 EDT, Height/Length Dosing, 137, kg, 05/08/23 10:15:00 EDT, Weight Dosing Start Date: 05/08/23 Status: Ordered Start: 05-08-2023 End: 05-02-2024 take 2 puff(s) by inhalation every six hours Albuterol (Eqv-ProAir HFA) 90 mcg/inh inhalation aerosol 2 puff(s), Inhalation, q6hr Wheezing for 30 day(s), 18 gm, Refill(s) 11, [facility] #[id number], 182, cm, 05/08/23 10:15:00 EDT, Height/Length Dosing, [...] qAM, # 30 tab(s), Refills(s) 0, Pharmacy: [facility] #[id number], 180, cm, 09/12/23 13:35:00 EST, Height/Length Dosing, 149.8, kg, 09/12/23 13:35:00 EST, Weight Dosing Start Date: 09/16/23 Status: Ordered Quantity: 30.0 Unit: tab(s) Repeat number: 1 Beet Root (20 sources) Start: 09-19-2022 Beet Root Beet Root, See Instructions, Take 1000mg daily Start Date: 09/19/22 Status: Ordered Blood Glucose Monitoring Suppl (OneIntelliFlouch Verio Flex System) w/Device kit (6 sources) Start: 12-24-2024 Blood Glucose Monitoring Suppl [...] day(s), # 20 cap(s), Refills(s) 0, Pharmacy: [facility] #[id number], 183, cm, 12/02/24 12:47:00 EDT, Height/Length Dosing, [...] Date: 09/19/22 Status: Ordered Continuous Blood Gluc Director Transportation (FreeStyle Sage 3 [place]) device (20 sources) Start: 09-25-19 Continuous Blood Gluc Director Transportation (FreeStyle Sage 3 [place]) device Indications: Type 2 diabetes mellitus with hyperglycemia, with long-term current use of insulin ([facility]) , Long-term insulin use ([facility]) 1 each continuously 1 each 09/25/2023 Active Start: 09-25-2023 Continuous Blo od Gluc Director Transportation (FreeStyle Sage 3 [place]) device Indications: Type 2 diabetes mellitus with hyperglycemia, with long-term current use of insulin ([facility]) , Long-term insulin use (CMS/HCC) 1 each continuously 1 each 09/25/2023 Active Continuous Blood Gluc Sensor (FreeStyle Sage 3 Sensor) [facility] (20 sources) Start: 09-25-2023 Continuous Blo od Gluc Sensor (FreeStyle Sage 3 Sensor) [facility] Indications: Type 2 diabetes mellitus with hyperglycemia, with long-term current use of insulin (HCC) , Long-term insulin use (HCC) 1 each every 14 (fourteen) days 6 each 3 09/25/2023 Active Start: 09-25-2023 Continuous Blo od Gluc Sensor (FreeStyle Sage 3 Sensor) [facility] Indications: Type 2 diabetes mellitus with hyperglycemia, with long-term current use of insulin (CMS/HCC) , Long-term insulin use (CMS/HCC) 1 each every 14 (fourteen) days 6 each 3 09/25/2023 Active cyclobenzaprine hydrochloride 10 mg oral tablet (4 sources) Muscle Relaxant Start: 04-29-2025 take 1 tablet by mouth at bedtime cyclobenzaprine (Flexeril) 10 MG tablet Indications: Neck pain Take 1 tablet (10 mg) by mouth at bedtime 30 tablet 04/29/2025 Active diazePAM 10 mg oral tablet (16 sources) Benzodiazepine Start: 11-20-2023 Valium 10 mg Tab See Instructions, Take 1 hr prior to procedure, # 1 tab(s), Refills(s) 0, [id number], 183, cm, 11/20/23 12:53:00 EDT, Height/Length Dosing, [...] 14 tab(s), Refills(s) 0, [facility]: [facility] #[id number], 183, cm, 11/20/23 12:53:00 EDT, Height/Length Dosing, [...] Ordered Start: 12-03-2019 take 1 capsule by [facility] once daily DULoxetine 60 mg Cap-EC 60 [...] 30November 17, 2023 12:00am Freestyle Sage 2 [place] (20 sources) Start: 09-16-2023 Freestyle Sage 2 [place] Freestyle Sage 2 [place], See Instructions, 1 EA, 0, Use daily with sensor, [facility] #[id number], Supply, 180, cm, 09/12/23 13:35:00 EST, Height/Length Dosing, 149.8, kg, 09/12/23 13:35:00 EST, Weight Dosing Start Date: 09/16/23 Status: Ordered Quantity: 1.0 Unit: EA Repeat number: 1 Start: 09-16-2023 Freestyle Libr e 2 [place] Freestyle Sage 2 [place], See Instructions, 1 EA, 0, Use daily with sensor, [facility] #[id number], Supply, 180, cm, 09/12/23 13:35:00 EST, Height/Length Dosing, 149.8, kg, 09/12/23 13:35:00 EST, Weight Dosing Start Date: 09/16/23 Status: Ordered Start: 05-22-2023 Freestyle Libr e 2 [place] Freestyle Sage 2 [place], See Instructions, 1 EA, 0, Use daily with sensor, [facility] #[id number], Supply, 182, cm, 05/22/23 13:30:00 EDT, Height/Length Dosing, 139.6, kg, 05/22/23 13:30:00 EDT, Weight Dosing Start Date: 05/22/23 Status: Ordered Freestyle Sage 2 Sensors (20 sources) Start: 09-16-2023 Freestyle Libr e 2 Sensors Freestyle Sage 2 Sensors, See Instructions, 2 EA, 3, Apply one q 14 days, [facility] #[id number], Supply, 180, cm, 09/12/23 13:35:00 EST, Height/Length Dosing, 149.8, kg, 09/12/23 13:35:00 EST, Weight Dosing Start Date: 09/16/23 Status: Ordered Quantity: 2.0 Unit: EA Repeat number: 4 Start: 09-16-2023 Freestyle Libr e 2 Sensors Freestyle Sage 2 Sensors, See Instructions, 2 EA, 3, Apply one q 14 days, [facility] #[id number], Supply, 180, cm, 09/12/23 13:35:00 EST, Height/Length Dosing, 149.8, kg, 09/12/23 13:35:00 EST, Weight Dosing Start Date: 09/16/23 Status: Ordered Start: 05-22-2023 Freestyle Libr e 2 Sensors Freestyle Sage 2 Sensors, See Instructions, 2 EA, 3, Apply one q 14 days, [facility] #[id number], Supply, 182, cm, 05/22/23 13:30:00 EDT, Height/Length Dosing, 139.6, kg, 05/22/23 13:30:00 EDT, Weight Dosing Start Date: 05/22/23 Status: Ordered furosemide 20 mg oral tablet (20 sources) Loop Diuretic Start: 09-16-2023 take 1 tablet by mouth once daily Lasix 40 mg Tab 40 mg = 1 tab(s), Oral, Daily, # 30 tab(s), Refills(s) 0, Pharmacy: [facility] #[id number], 180, cm, 09/12/23 13:35:00 EST, Height/Length Dosing, [...] qPM, # 30 tab(s), Refills(s) 0, Pharmacy: [facility] #[id number], 180, cm, 09/12/23 13:35:00 EST, Height/Length Dosing, [...] Supply, # 60 tab(s), Refills(s) 11, Pharmacy: [facility] #[id number], 182, cm, 10/01/21 10:14:00 EST, Height/Length Dosing, [...] BID, # 14 tab(s), Refills(s) 0, Pharmacy: [facility] #[id number], 182, cm, 06/11/23 13:54:00 EDT, Height/Length Dosing, [...] day, # 45 mL, Refills(s) 5, Pharmacy: [facility] #[id number], 182, cm, 09/13/22 13:17:00 EST, Height/Length Dosing, 140.8, kg, 09/13/22 13:17:00 EST, Weight Dosing Start Date: 09/13/22 Status: Ordered Quantity: 45.0 Unit: mL Repeat number: 6 Start: 03-29-2022 NovoLOG FlexPe n 100 units/mL injectable solution See Instructions, 250 tidac. Max 150 units a day, # 45 mL, Refills(s) 5, Pharmacy: [facility] #[id number], 182.9, cm, 03/29/22 13:07:00 EDT, Height/Length Dosing, 126.7, kg, 03/29/22 13:07:00 EDT... Start Date: 03/29/22 Status: Ordered Start: 10-01-2021 NovoLOG FlexPe n 100 units/mL injectable solution See Instructions, 250 tidac. Max 120 units a day, # 15 mL, Refills(s) 3, [facility]: [facility], 182, cm, 10/01/21 10:14:00 [...] 12 mL, Refills(s) 5, [facility] #[id number], 182, cm, 09/13/22 13:17:00 EST, Height/Length Dosing, 140.8, kg, 09/13/22 13:17:00 EST, Weight Dosing Start Date: 09/13/22 Status: Ordered Quantity: 12.0 Unit: mL Repeat number: 6 Start: 03-29-2022 Toujeo Max Harriet oStar 300 units/mL subcutaneous solution 40 unit(s), SubCutaneous, BID, # 12 mL, Refills(s) 5, Pharmacy: [facility] #[id number], 182.9, cm, 03/29/22 13:07:00 EDT, Height/Length Dosing, 126.7, kg, 03/29/22 13:07:00 EDT, Weight Dosing Start Date: 03/29/22 Status: Ordered Start: 01-11-2022 inject 40 [IU] by shah bcutaneous injection in the morning, then inject 30 [IU] by subcutaneous injection in the evening Lantus Solostar Pen 100 units/mL subcutaneous solution See Instructions, 40 units AM, 30 units PM, # 30 mL, Refills(s) 11, [facility], 182, cm, 01/11/22 13:57:00 EDT, Height/Length Dosing, 130, kg, 01/11/22 13:57:00 EDT, Weight Dosing Start Date: 01/11/22 Status: Ordered Start: 01-11-2022 inject 40 [IU] by shah bcutaneous injection in the morning, then inject 30 [IU] by subcutaneous injection in the evening Lantus Solostar Pen 100 units/mL subcutaneous solution See Instructions, 40 units AM, 30 units PM, # 30 mL, Refills(s) 11, [facility], 182, cm, 01/11/22 [...] bedtime., # 6 mL, Refills(s) 1, Pharmacy: [facility] #[id number], 182, cm, 12/20/24 13:40:00 EDT, Height/Length Dosing, [...] meals. isopropyl alcohol 0.7 ml/ml medicated pad (6 sources) Start: 12-22-19 Alcohol Swabs (Alcohol Prep) [...] BID, 180 tab(s), Refill(s) 4, [facility] #[id number], 182.9, cm, 12/02/22 10:56:00 EDT, Height/Length Dosing, 139.6, kg, 12/02/22 10:56:00 EDT, Weight Dosing Start Date: 04/14/23 Status: Ordered Quantity: 180.0 Unit: tab(s) Repeat number: 5 Start: 04-04-2022 Jentadueto 2.5 mg-1000 mg oral tablet 1 tab(s), Oral, BID, 180 tab(s), Refill(s) 4, [facility] #[id number], 182.9, cm, 03/29/22 13:07:00 EDT, Height/Length Dosing, [...] Daily, # 30 tab(s), Refills(s) 1, Pharmacy: [facility] #[id number], 182, cm, 12/20/24 13:40:00 EDT, Height/Length Dosing, [...] 90 tab(s), Refills(s) 3, [facility]: [facility] #[id number], 182.9, cm, 03/29/22 13:07:00 EDT, Height/Length Dosing, [...] day(s), # 9 tab(s), Refills(s) 0, Pharmacy: [facility] #[id number], 183, cm, 12/19/24 10:26:00 EDT, Height/Length Dosing, [...] day, # 15 mL, Refills(s) 3, [facility] [facility], 182, cm, 10/01/21 10:14:00 EST, Height/Length Dosing, 131.2, kg, 10/01/21 10:... Start Date: 10/01/21 Status: Ordered oxybutynin chloride 5 mg oral tablet (16 sources) Cholinergic Muscarinic Antagonist Start: 02-07-2024 take 1 tablet by mouth twice daily oxybutynin 5 mg Tab See Instructions, 1 tab(s) Oral bid after procedure, # 20 tab(s), Refills(s) 0, Pharmacy: [facility] #[id number], 180, cm, 01/15/24 16:27:00 EDT, Height/Length Dosing, 140, kg, 01/15/24 16:27:00 EDT, Weight Dosing Start Date: 02/07/24 Status: Ordered Start: 11-20-2023 take 1 tablet by ricco th twice daily oxybutynin 5 mg Tab See Instructions, 1 tab(s) Oral bid after procedure, # 10 tab(s), Refills(s) 0, Pharmacy: [facility] #[id number], 183, cm, 11/20/23 12:53:00 EDT, Height/Length Dosing, 143.5, kg, 11/11/23 9:09:00 EDT, Weight Dosing Start Date: 11/20/23 Status: Ordered pantoprazole 40 mg delayed release oral tablet (20 sources) Proton Pump Inhibitor Start: 04-20-2021 End: 12-04-2023 take 1 tablet by mouth once daily Protonix 40 mg Tab-DR 40 mg = 1 tab(s), Oral, Daily, # 30 tab(s), Refills(s) 6, [facility]acy: [facility] #[id number], 182, cm, 05/08/23 10:15:00 EDT, Height/Length Dosing, 137, kg, 05/08/23 10:15:00 EDT, Weight Dosing Start Date: 05/08/23 Status: Ordered Quantity: 30.0 Unit: tab(s) Repeat number: 7 Indication: Gastro-esophageal reflux disease without esophagitis Start: 04-20-2021 take 1 tablet by ricco th once daily Pantoprazole [address] Tab 40 mg = 1 tab(s), Oral, Daily, # 90 tab(s), Refills(s) 3, [facility]: [facility], 183, cm, 04/20/21 11:36:00 EDT, [...] qPM, # 90 tab(s), Refills(s) 4, [facility]acy: [facility] #[id number], 182, cm, 05/22/23 13:30:00 EDT, Height/Length Dosing, 139.6, kg, 05/22/23 13:30:00 EDT, Weight Dosing Start Date: 05/22/23 Status: Ordered Quantity: 90.0 Unit: tab(s) Repeat number: 5 Start: 03-29-2022 take 1 tablet by ricco th once daily in the evening ropinirole 1 mg Tab 1 mg = 1 tab(s), Oral, qPM, # 90 tab(s), Refills(s) 4, Pharmacy: [facility] #[id number], 182.9, cm, 03/29/22 13:07:00 EDT, Height/Length Dosing, [...] 30 cap(s), Refills(s) 3, [facility]: [facility] #[id number], 181.8, cm, 09/26/23 9:01:00 EST, Height/Length Dosing, 136, kg, 09/26/23 9:01:00 EST, Weight Dosing Start Date: 10/02/23 Stop Date: 01/30/24 Status: Ordered Comment on above: Take 1 capsule by mo [facility] every afternoon. torsemide 20 mg oral tablet [...] wheezing, 8.5 gm, Refill(s) 5, [facility] #[id number], 182.9, cm, 06/17/22 13:13:00 EDT, Height/Length Dosing, 131.5, kg, 06/17/22 13:13:00 EDT, Weight Dosing Start Date: 06/17/22 Status: Ordered Quantity: 8.5 Unit: g Repeat number: 6 Start: 06-17-2022 take 2 puff(s) by in halation every four hours Ventolin HFA 90 mcg/inh Aerosol 2 puff(s), Inhalation, q4hr Shortness of breath or wheezing, 8.5 gm, Refill(s) 5, [facility] #[id number], 182.9, cm, 06/17/22 13:13:00 EDT, Height/Length Dosing, [...] day(s), # 20 cap(s), Refills(s) 0, [id number], 180, cm, 09/24/23 20:13:00 EST, Height/Length Dosing, 141.4, kg, 09/24/23 20:13:00 EST, Weight Dosing Start Date: 09/24/23 Stop Date: 09/29/23 Status: Ordered Glucometer (20 sources) Start: 09-16-2023 Glucometer Glu cometer, See Instructions, 1 EA, 0, Dispense 1 Glucometer, [facility] #[id number], Supply, 180, cm, 09/12/23 13:35:00 EST, Height/Length Dosing, 149.8, kg, 09/12/23 13:35:00 EST, Weight Dosing Start Date: 09/16/23 Status: Ordered Quantity: 1.0 Unit: EA Repeat number: 1 Indication: Type 2 diabetes mellitus with diabetic neuropathy, unspecified Start: 09-16-2023 Glucometer Glu cometer, See Instructions, 1 EA, 0, Dispense 1 Glucometer, [facility] #[id number], Supply, 180, cm, 09/12/23 13:35:00 EST, Height/Length Dosing, 149.8, kg, 09/12/23 13:35:00 EST, Weight Dosing Start Date: 09/16/23 Status: Ordered Start: 11-03-2022 Glucometer Glu cometer, See Instructions, 1 EA, 0, Dispense 1 Glucometer, [facility] #[id number], Supply, 182, cm, 09/13/22 13:17:00 EST, Height/Length Dosing, 140.8, kg, 09/13/22 13:17:00 EST, Weight Dosing Start Date: 11/03/22 Status: Ordered Start: 10-28-2021 Glucometer Glu cometer, See Instructions, 1 EA, 0, Dispense 1 Glucometer, [facility] #[id number], Supply, 182, cm, 10/01/21 10:14:00 EST, Height/Length Dosing, 131.2, kg, 10/01/21 10:14:00 EST, Weight Dosing Start Date: 10/28/21 Status: Ordered Glucose (1 source) Start: 12-21-2024 Glucose Kit Gl ucose Kit, See Instructions, 1 EA, 0, Glucose meter. Include autolet, matching test strips, lancets, & alcohol wipes, #100 or as allowed by insurance; DX: E11.9, [facility] #[id number], Supply, 182, cm, 12/20/24 13:40:00 EDT, Height/Length [...] End: 05-22-2024 0.3 mg, Intravitreal, Once P athletic director, Starting on Mon05/22/24 at 1442, For 1 dose Start: 04-23-2024 End: 04-23-2024 0.3 mg, Intravitreal, Once P athletic director, Starting on Mon04/23/24 at 1106, For 1 dose Symbicort 160/4.5 inhalation aerosol with adapter (20 sources) Start: 05-08-2023 take 1 dose by inhalation twice daily Symbicort 160/4.5 inhalation aerosol with adapter 2 puff(s), Inhalation, BID, 1 EA, Refill(s) 6, [facility] #[id number], 182, cm, 05/08/23 10:15:00 EDT, Height/Length Dosing, 137, kg, 05/08/23 10:15:00 EDT, Weight Dosing Start Date: 05/08/23 Status: Ordered Quantity: 1.0 Unit: EA Repeat number: 7 Indication: Unspecified asthma, uncomplicated Start: 05-08-2023 take 1 dose by inhal ation twice daily Symbicort 160/4.5 inhalation aerosol with adapter 2 puff(s), Inhalation, BID, 1 EA, Refill(s) 6, [facility] #[id number], 182, cm, 05/08/23 10:15:00 EDT, Height/Length Dosing, 137, kg, 05/08/23 10:15:00 EDT, Weight Dosing Start Date: 05/08/23 Status: Ordered Start: 05-08-2023 End: 12-04-2023 take 1 dose by inhalation twice daily Symbicort 160/4.5 inhalation aerosol with adapter 2 puff(s), Inhalation, BID for 30 day(s), 1 EA, Refill(s) 6, [facility] #[id number], 182, cm, 05/08/23 10:15:00 EDT, Height/Length Dosing, [...] Start: 09-12-2023 take 1 capsule by mo [facility] every eight hours as needed for pain [...] outpatient CDI policy. Diabetes mellitus without complication (8 sources) Hyperglycemia; Translations: [Hyperglycemia, unspecified] Onset: 12-02-2024 [...] (BMI) of 38.0 to 38.9 in adult (CMS/[facility])] 07-15-2024 Chronic Other nutritional; endocrine; and metabolic [...] 09-17-2023 Episodic Crushing injury or internal injury (6 sources) Late effect of internal injury to [...] sources) Long-term current use of insulin; Translations: [FPC (current) use of insulin] Onset: 05-22-2023 Episodic [...] 06-13-2023 06-17-2022 Episodic Other connective tissue disease (6 sources) Muscle weakness; Translations: [Muscle weakness (generalized)] Onset: 11-17-2023 03-17-2025 Episodic Other lower respiratory disease (20 sources) Chronic cough; Translations: [Chronic cough] Onset: 06-13-2023 03-25-2019 Episodic Other nervous system disorders (20 sources) Impairment of balance; Translations: [Other abnormalities of gait and mobility] Onset: 06-13-2023 06-13-2023 Episodic Other nervous system disorders (6 sources) Coordination problem; Translations: [Unspecified lack of [...] 02-18 Glucose [Mass/Vol] 228 mg/dL High 55-99 [facility] Comment on above: Result Comment: Thelma maxwell RN/MD Performed By: #### 2 [id number] #### [facility] [address] [place] [address] Discharge Note-Nursingon Discharge Note-Nursing Discharge Note-Nursing NICOLE [...] scheduled appointment Where: [address] [place] [address]- Business (1) Medications What How Much When Why Instructions Next Dose New insulin glargine (Insulin Glargine Prefilled Pen 100 units/ mL subcutaneous solution) 30 Units Subcutaneous 2 times a day Type 2 diabetes mellitus with hyperosmolar nonketotic hyperglycemia Refills: 1 Pickup at [facility] #[id number] Tonight at 9:00 PM New insulin lispro (HumaLOG KwikPen 100 units/ mL injectable solution) See instructions Type 2 diabetes mellitus with hyperosmolar nonketotic hyperglycemia TID PRN AC MEALS 150- 200 2 units, 200-250 4 u, 251-300 6 u, 301-350 8 u, 351-400 10 u, > 401 call your PCP Pickup at [facility] #[id number] Today at lunch Changed insulin regular (HumuLIN [...] Mouth Every day Hypertension Resume 03/08/2025 Unchanged [facility] Prescription (Glucose Kit) See instructions Hyperglycemia Glucose meter. Include autolet, matching test strips, lancets, & alcohol wipes, #100 or as allowed by insurance; DX: E11.9 Unchanged Misc Prescription (Pen Needle 31G x 6mm) See instructions Hyperglycemia Pen Needle 31G x 6mm Pharmacy Information [facility] #[id number]: [address] [place], [place] [id number] [phone] Test Results CBC BMP WBC: 6.9 E9/L [...] mmol/L (02/18 (more content not included)... Normal [facility] Inpatient Clinical Summaryon 03-07-2025 Inpatient Clinical Summary Inpatient Clinical Summary [address] [address] Clinical Summary Person Information: Name: NICOLE LORA Age: 65 Years : 1960 Sex: Male PCP: [facility] LYMAN, Mounika Lugo Marital Status: Phone: [phone] Race: White Ethnicity: Non- or Language: Montserratian Visit Id: Visit Reason: Hyperglycemia; Medical problem - minor; Leg pain-swelling; LEG PAIN Speciality: Acuity: Enc Type: Inpatient Med Service: Medical Arrival: 03/05/2025 19:53:39 Discharge: Dispo Type: Admit to ICCU Address: [address] [id number] Provider Notes: Diagnosis: 1:Leg muscle spasm; 4:CKD [...] up: With: Address: When: Mounika Brooke [facility] [place] [address] Business (1) Within 3 to 5 days Comments: Call for followup appointment Patient Education Information: Hyperglycemic Hyperosmolar State Normal [facility] Inpatient Patient Summaryon 03-07-2025 Inpatient Patient Summary Inpatient Patient Summary [address] [address] Patient Discharge Instructions PERSON INFORMATION [...] up: With: Address: When: Mounika [place] [address] Business (1) Within 3 to 5 days [...] OCCURRED DURING YOUR HOSPITAL STAY New Medications [id number], [address] [facility] [place] [id number], [phone] insulin glargine (Insulin Glargine Prefilled Pen 100 [...] Hyperglycemic Hyperosmolar State (more content not included)... [facility] Interdisciplinary Note - Yimi e Manageron 03-07-2025 Interdisciplinary Note - E M Assembler Interdisciplinary Note - E M Assembler Patient is awake and alert in bed, previously rounded with Dr. Macario. Patient is from home independently, states with daughter 4 days per week who is disabled and has cancer. States trying to get motorized scooter approved by insurance and CRM contacted PCP office yesterday regarding this. Declines any HH or PM or further needs. Family will transport at [place]. Medicare rights reviewed and second copy provided. . PCP verified and insurance information reviewed and DME discussed. Contact information provided and white board updated. [facility] Comment on above: Result Comment: Elec tronically Signed By: Darlyn HALL, Lolis\.samir\Date and Time Signed: 03/07/25 09:09 EDT Patient Education - Texton 0 03-07-2025 Patient Education - Text Patient Education - Text [facility] BMPon 03-06-2025 Anion gap [Moles/Vol] 12 mmol/L Normal -16 [facility] Comment on above: Performed By: #### 2 [id number] #### [facility] [address] [place] [address] BUN/Creat Ratio 22 No Units High 10-20 [facility] Comment on above: Performed By: #### 2 [id number] #### [facility] [address] [place] [address] Calcium [Mass/Vol] 8.4 mg/dL Low 8.9-11.1 [facility] Comment on above: Performed By: #### 2 [id number] #### [facility] [address] [place] [address] Chloride [Moles/Vol] 100 mmol/L Low 101-111 [facility] Comment on above: Result Comment: Delt a check verified Performed By: #### 2 [id number] #### [facility] [address] [place] [address] CO2 [Moles/Vol] 26 mmol/L Normal 21-31 [facility] Comment on above: Performed By: #### 2 [id number] #### [facility] [address] [place] [address] Creatinine [Mass/Vol] 1.6 mg/dL High 0.5-1.3 [facility] Comment on above: Result Comment: Delt a check verified Performed By: #### 2 [id number] #### [facility] [address] [place] [address] Glucose [Mass/Vol] 224 mg/dL High 55-199 [facility] Comment on above: Performed By: #### 2 [id number] #### [facility] [address] [place] [address] Potassium [Moles/Vol] 3.8 mmol/L Normal 3.5-5.3 [facility] Comment on above: Result Comment: Delt a check verified Performed By: #### 2 [id number] #### [facility] [address] [place] [address] Sodium [Moles/Vol] 134 mmol/L Low 135-145 [facility] Comment on above: Performed By: #### 2 [id number] #### [facility] [address] [place] [address] Urea nitrogen [Mass/Vol] 35 mg/dL High 5- [facility] Comment on above: Performed By: #### 2 [id number] #### [facility] [address] [place] [address] Capillary Glucose POCon 02-18 Glucose [Mass/Vol] 172 mg/dL High 55-99 [facility] Comment on above: Result Comment: Thelma maxwell RN/ Performed By: #### 2 [id number] #### [facility] [address] [place] [address] Glucose [Mass/Vol] 121 mg/dL High 55-99 [facility] Comment on above: Result Comment: Thelma maxwell RN/ Performed By: #### 2 [id number] #### [facility] [address] [place] [address] Glucose [Mass/Vol] 186 mg/dL High 55-99 [facility] Comment on above: Performed By: #### 2 [id number] #### [facility] [address] [place] [address] Glucose [Mass/Vol] 225 mg/dL High 55-99 [facility] Comment on above: Performed By: #### 2 [id number] #### [facility] [address] [place] [address] Glucose [Mass/Vol] 128 mg/dL High 55-99 [facility] Comment on above: Performed By: #### 2 [id number] #### [facility] [address] [place] [address] Glucose [Mass/Vol] 168 mg/dL High 55-99 [facility] Comment on above: Result Comment: Pricila elbert Meter Performed By: #### 2 [id number] #### [facility] [address] [place] [address] Glucose [Mass/Vol] 163 mg/dL High 55-99 [facility] Comment on above: Result Comment: Pricila elbert Meter Performed By: #### 2 [id number] #### [facility] [address] [place] [address] Glucose [Mass/Vol] 229 mg/dL High 55-99 [facility] Comment on above: Result Comment: Pricila elbert Meter Performed By: #### 2 [id number] #### [facility] [address] [place] [address] Glucose [Mass/Vol] 214 mg/dL High 55-99 [facility] Comment on above: Result Comment: Pricila elbert Meter Performed By: #### 2 [id number] #### [facility] [address] [place] [address] Glucose [Mass/Vol] 241 mg/dL High 55-99 [facility] Comment on above: Result Comment: Pricila elbert Meter Performed By: #### 2 [id number] #### [facility] [address] [place] [address] Glucose [Mass/Vol] 322 mg/dL High 55-99 [facility] Comment on above: Result Comment: Pricila elbert Meter Performed By: #### 2 [id number] #### [facility] [address] [place] [address] Glucose [Mass/Vol] 384 mg/dL High 55-99 [facility] Comment on above: Result Comment: Pricila elbert Meter Performed By: #### 2 [id number] #### [facility] [address] [place] [address] Glucose [Mass/Vol] 440 mg/dL High 55-99 [facility] Comment on above: Result Comment: Pricila elbert Meter Performed By: #### 2 [id number] #### [facility] [address] [place] [address] ED Note-Physicianon 03-06-20 ED Note-Physician ED Note-Physician [...] and Complexity of Problems Differential Diagnosis: [] [facility] Data External documents reviewed: [] My [...] EDT, ST (more content not included)... Normal [facility] Comment on above: Result Comment: Elec tronically Signed By: Shira Snider, Alejandro Esteves\.br\Date and Time Signed: 03/06/25 00:11 EDT Extra [place] 03-06-2025 WB Tube Collected Yes Invalid Interpretation Code [facility] Comment on above: Performed By: #### 1 [id number] #### [facility] [address] [place] [address] Glucoseon 03-06-2025 Glucose [Mass/Vol] 551 mg/dL Abnormal 55-199 [facility] Comment on above: Result Comment: Crit ical Result Verified by Previous Result Critical Result [id number] Called to and read back by: DIGNA MARX at: 03/06/2025 00:04:06 by:[id number] Performed By: #### 2 [id number] #### [facility] [address] [place] [address] Inpatient Clinical Summaryon 03-06-2025 Inpatient Clinical Summary Inpatient Clinical Summary [address] [address] Clinical Summary Person Information: Name: NICOLE LORA Age: 65 Years : 1960 Sex: Male PCP: Mounika Brooke MD Marital Status: Phone: [phone] Race: White Ethnicity: Non- or Language: Montserratian Visit Id: Visit Reason: Hyperglycemia; Medical problem - minor; Leg pain-swelling; LEG PAIN Speciality: Acuity: Enc Type: Inpatient Med Service: Medical Arrival: 03/05/2025 19:53:39 Discharge: Dispo Type: Admit to ICCU Address: [address] [id number] Provider Notes: Diagnosis: 1:Leg muscle spasm; 4:CKD [...] Tablets By Mouth every day. Refills: 1. [facility] Prescription (Glucose Kit) Glucose meter. Include autolet, matching test strips, lancets, & alcohol wipes, #100 or as allowed by insurance; DX: E11.9. Refills: 0. Misc Prescription (Pen Needle 31G x 6mm) Pen Needle 31G x 6mm. Refills: 1. Care Team Members: Attending Physician: Jigna Suarez MD Consulting Physician: Referring Physician: Follow up: Patient Education Information: Normal [facility] Inpatient Patient Summaryon 03-06-2025 Inpatient Patient Summary Inpatient Patient Summary [place] [id number] Patient Discharge Instructions PERSON INFORMATION Name: GENO NICOLE Jesus Date of : 1960 Current [...] to serve you. Thank you for choosing [facility] Normal [facility] Interdisciplinary Note - Yimi e Manageron 03-06-2025 Interdisciplinary Note - E M Assembler Interdisciplinary Note - E M Assembler CRM to room ICU 7 Patient is [...] patient may move to the [facility]. Patient was provided CRM contact, white [...] regard to his electric scooter order Normal [facility] Comment on above: Result Comment: Elec tronically Signed By: Jodee Giang\.br\Date and Time Signed: 03/06/25 16:16 EDT Interdisciplinary Note - E M Assembler Interdisciplinary Note - E M Assembler CRM to room ICU 7 Patient is [...] patient may move to the [facility]. Patient was provided CRM contact, white board updated. CRM following DC date TBD, DC plan home, declined needs Normal [facility] Comment on above: Result Comment: Elec tronically Signed By: Jodee Giang\.br\Date and Time Signed: 03/06/25 10:21 EDT Patient Education - Texton 0 03-06-2025 Patient Education - Text Patient Education - Text Normal [facility] XR Chest Single Viewon 03-06 XR [...] MD Transcribed by: KAT Technologist: CML Normal [facility] eGFRon 03-06-2025 eGFR 47 mL/min/1.73 m2 Low >=59 [facility] Comment on above: Performed By: #### 1 [id number] #### [facility] [address] [place] [address] BMPon 03-05-2025 Glucose [Mass/Vol] 1084 mg/dL Abnormal 55-199 [facility] Comment on above: Result Comment: Crit ical Result Verified by Repeat Analysis Critical Result [id number] Called to and read back by: KELY GE at: 03/05/2025 21:05:22 by:[id number] Performed By: #### 2 [id number] #### [facility] [address] [place] [address] Sodium [Moles/Vol] 119 mmol/L Abnormal 135-145 [facility] Comment on above: Result Comment: Crit ical Result Verified by Repeat Analysis Critical Result S_NA of 119 Called to and read back by: KELY GE at: 03/05/2025 21:05:22 by:[id number] Performed By: #### 2 [id number] #### [facility] [address] [place] [address] Anion gap [Moles/Vol] 13 mmol/L Normal 6-16 [facility] Comment on above: Performed By: #### 2 [id number] #### [facility] [address] [place] [address] BUN/Creat Ratio 21 No Units High 10-20 [facility] Comment on above: Performed By: #### 2 [id number] #### [facility] [address] [place] [address] Calcium [Mass/Vol] 8.4 mg/dL Low 8.9-11.1 [facility] Comment on above: Performed By: #### 2 [id number] #### [facility] [address] [place] [address] Chloride [Moles/Vol] 86 mmol/L Low 101-111 [facility] Comment on above: Performed By: #### 2 [id number] #### [facility] [address] [place] [address] CO2 [Moles/Vol] 25 mmol/L Normal 21-31 [facility] Comment on above: Performed By: #### 2 [id number] #### [facility] [address] [place] [address] Creatinine [Mass/Vol] 1.9 mg/dL High 0.5-1.3 [facility] Comment on above: Performed By: #### 2 882823 #### [facility] [address] [place] [address] Potassium [Moles/Vol] 4.6 mmol/L Normal 3.5-5.3 [facility] Comment on above: Performed By: #### 2 511932 #### [facility] [address] [place] [address] Urea nitrogen [Mass/Vol] 40 mg/dL High 5-21 [facility] Comment on above: Performed By: #### 2 856454 #### [facility] [address] [place] [address] BOHBon 03-05-2025 Beta HB Qnt 0.45 mmol/L High 0.02-0.27 [facility] Comment on above: Performed By: #### 2 [id number] #### [facility] [address] [place] [address] CBC w/ Auto Diffon 5 Basophil Absolute 0.1 E9/L Normal 0.0-0.2 [facility] Comment on above: Performed By: #### 2 275156 #### [facility] [address] [place] [address] Basophils/100 WBC (Bld) 0.9 % Normal 0.0-2.0 [facility] Comment on above: Performed By: #### 2 [id number] #### [facility] [address] [place] [address] Eos Absolute 0.2 E9/L Normal 0.0-0.5 [facility] Comment on above: Performed By: #### 2 176176 #### [facility] [address] [place] [address] Eosinophils/100 WBC (Bld) 2.4 % Normal 0.0-8.0 [facility] Comment on above: Performed By: #### 2 608291 #### [facility] [address] [place] [address] Erythrocyte distribution width (RBC) [Ratio] 12.9 % Normal 10.9-14.2 [facility] Comment on above: Performed By: #### 2 271221 #### [facility] [address] [place] [address] Hematocrit (Bld) [Volume fraction] 44.1 % Normal 37.7-49.0 [facility] Comment on above: Performed By: #### 2 659621 #### [facility] [address] [place] [address] Hemoglobin (Bld) [Mass/Vol] 14.7 g/dL Normal 13.5-17.5 [facility] Comment on above: Performed By: #### 2 713513 #### [facility] [address] [place] [address] Lymph Absolute 1.2 E9/L Normal 1.0-4.0 [facility] Comment on above: Performed By: #### 2 827762 #### [facility] [address] [place] [address] Lymphocytes/100 WBC (Bld) 17.9 % Normal 14.0-50.0 [facility] Comment on above: Performed By: #### 2 299689 #### [facility] [address] [place] [address] MCH (RBC) [Entitic mass] 31.2 pg Normal 27.0-34.0 [facility] Comment on above: Performed By: #### 2 289444 #### [facility] [address] [place] [address] MCHC (RBC) [Mass/Vol] 33.2 g/dL Normal 31.4-36.0 [facility] Comment on above: Performed By: #### 2 [id number] #### [facility] [address] [place] [address] MCV (RBC) [Entitic vol] 93.8 fL Normal 80.0-100.0 [facility] Comment on above: Performed By: #### 2 102624 #### [facility] [address] [place] [address] [place]hin Absolute 0.4 E9/L Normal 0.2-1.0 [facility] Comment on above: Performed By: #### 2 087766 #### [facility] [address] [place] [address] Monocytes/100 WBC (Bld) 6.5 % Normal 4.0-14.0 [facility] Comment on above: Performed By: #### 2 616689 #### [facility] [address] [place] [address] Neutro Absolute 5.0 E9/L Normal 2.0-7.5 [facility] Comment on above: Performed By: #### 2 120542 #### [facility] [address] [place] [address] Neutro Auto 72.3 % Normal 36.0-75.0 [facility] Comment on above: Performed By: #### 2 728689 #### [facility] [address] [place] [address] Platelet 230.0 E9/L Normal 150.0-500.0 [facility] Comment on above: Performed By: #### 2 [id number] #### [facility] [address] [place] [address] Platelet mean volume (Bld) [Entitic vol] 8.1 fL Normal 6.4-10.8 [facility] Comment on above: Performed By: #### 2 971979 #### [facility] [address] [place] [address] RBC 4.7 E12/L Normal 4.3-5.9 [facility] Comment on above: Performed By: #### 2 690817 #### [facility] [address] [place] [address] WBC 6.9 E9/L Normal 4.0-11.0 [facility] Comment on above: Performed By: #### 2 502370 #### [facility] [address] [place] [address] Capillary Glucose POCon 02-18 Glucose Cap >500 Abnormal 55-99 [facility] Comment on above: Result Comment: Pricila elbert Meter Performed By: #### 2 [id number] #### [facility] [address] [place] [address] Glucose Cap >500 Abnormal 55-99 [facility] Comment on above: Result Comment: Pricila elbert Meter Performed By: #### 2 [id number] #### [facility] [address] [place] [address] Glucose Cap >500 Abnormal 55-99 [facility] Comment on above: Performed By: #### 2 [id number] #### [facility] [address] [place] [address] ED Clinical Summaryon 2024 ED Clinical Summary ED Clinical Summary [address] [id number] ED Clinical Summary Person Information Name: NICOLE LORA/[place] Age: 65 Years : 1960 Sex: Male Language: Montserratian PCP: Mounika Brooke MD Marital Status: Phone: [phone] Visit Id: Visit Reason: Hyperglycemia; Medical problem [...] 03/05/2025 21:34:31 03/05/2025 21:34:31 03/05/2025 21:34:31 ADDRESS: [address] [place] [id number] PHYS DOC NOTES: MEDICAL INFORMATION: Prescriptions Given: [...] EDUCATION INFORMATION: Instructions: Follow up: DIAGNOSIS: Normal [facility] ED Patient Education Noteon 03-05-2025 ED Patient Education Note ED Patient Education Note Normal [facility] ED Patient Summaryon 025 ED Patient Summary ED Patient Summary [address] [address] Patient Discharge Instructions Person Information Name: NICOLE LORA Age: 65 Years Arrival Date: 03/05/2025 19:53:39 Discharge Diagnosis: Primary Care Physician: Mendy LYMAN, Mounika Lugo Provider Information Primary Provider: Alejandro Silva M.D. Advanced Problem Manager:None The exam and treatment you received in the Emergency Department were for an urgent problem and are not intended as complete care. It is important that you follow up with a doctor, nurse practitioner, or physician???s transport assistant for ongoing care. If your symptoms [...] opioids can be used to help relieve xvitlffo-gt-zazasv pain and are often prescribed following a [...] be struggling with addiction, tell your health caregiver assisted living and ask for guidance or call [facility]???S National Helpline at 3-975-448-HELP. v Source: [place] Department of Health and Human Services/Center for Disease Control & Prevention [facility] (more content not included)... Normal [facility] Extra Blueon 03-05-2025 Tube Collected Plasma Yes Invalid Interpretation Code [facility] Comment on above: Performed By: #### 1 [id number] #### [facility] [address] [place] [address] Glucoseon 03-05-2025 Glucose [Mass/Vol] 726 mg/dL Abnormal 55-199 [facility] Comment on above: Result Comment: Crit ical Result Verified by Repeat Analysis Critical Result S_GLU:[id number] Called to and read back by: BINA GONZALEZ at: 03/05/2025 23:09:06 by:[id number] Performed By: #### 2 [id number] #### [facility] [address] [place] [address] Hep Func Panelon 03-05-2025 Albumin [Mass/Vol] 3.3 g/dL Normal 3.3-5.0 [facility] Comment on above: Performed By: #### 2 067952 #### [facility] [address] [place] [address] Albumin/Globulin [Mass ratio] 1.2 {ratio} Normal 1.1-2.2 [facility] Comment on above: Performed By: #### 2 145886 #### [facility] [address] [place] [address] Alk Phos 160 Int._Unit/L High 21-98 [facility] Comment on above: Performed By: #### 2 527301 #### [facility] [address] [place] [address] ALT 19 Int._Unit/L Normal 6-46 [facility] Comment on above: Performed By: #### 2 135536 #### [facility] [address] [place] [address] AST 15 Int._Unit/L Normal 5-43 [facility] Comment on above: Performed By: #### 2 878534 #### [facility] [address] [place] [address] Bili Direct 0.1 mg/dL Normal 0.0-0.4 [facility] Comment on above: Performed By: #### 2 696085 #### [facility] [address] [place] [address] Bili Indirect 0.6 mg/dL Normal 0.1-0.9 [facility] Comment on above: Performed By: #### 2 391708 #### [facility] [address] [place] [address] Bili Total 0.7 mg/dL Normal 0.0-1.1 [facility] Comment on above: Performed By: #### 2 943858 #### [facility] [address] [place] [address] Globulin (S) [Mass/Vol] 2.8 g/dL Normal 1.4-4.0 [facility] Comment on above: Performed By: #### 2 617705 #### [facility] [address] [place] [address] Protein [Mass/Vol] 6.1 g/dL Normal 6.0-7.8 [facility] Comment on above: Performed By: #### 2 754743 #### [facility] [address] [place] [address] Magnesiumon 03-05-2025 Magnesium [Mass/Vol] 2.0 mg/dL Normal 1.3-2.4 [facility] Comment on above: Performed By: #### 2 586698 #### [facility] [address] [place] [address] Pre-Arrival Noteon 5 Pre-Arrival Note Pre-Arrival Note Pre-Arrival Summary Name: , Current Date: 03/05/2025 19:54:07 EDT Gender: Male Date of : Age: 65 Pre-Arrival Type: EMS ETA: 03/05/2025 20:14:00 EDT Primary Care Physician: Presenting Problem: leg pain Pre-Arrival User: Liberty Cope RN Referring Source: Location: Completion Date/Time: 03/05/2025 19:44:00 [facility] Emergency Department Pre-Hospital Report Form Vital Signs: Pre-Hospital Report: Treatment in Route: Response to Treatment: Misc. Issues: Normal [facility] Troponinon 03-05-2025 Troponin HS 10.10 pg/mL Low 15.90-38.40 [facility] Comment on above: Result Comment: The 95% CI (Confidence Interval) PPV (Positive Predictive Value) for myocardial infarction in females is 38 pg/mL, in males 51 pg/mL. The results should be used in conjunction with clinical conditions of myocardial infarction. (Access High Sensitivity Troponin I Instructions For Use, Opal Shirlene, March 2018) Performed By: #### 2 [id number] #### [facility] [address] [place] [address] UA with Cult Rflxon 03-05-20 25 Color (U) Colorless Abnormal Yellow [facility] Comment on above: Result Comment: Micr oscopic readings are only performed on those samples that meet specific criteria set forth by [facility]. Performed By: #### 4 [id number] #### [facility] [address] [place] [address] Ketones Ql (U) Negative Normal Negative [facility] Comment on above: Performed By: #### 4 [id number] #### [facility] [address] [place] [address] UA Blood Negative Normal Negative [facility] Comment on above: Performed By: #### 4 [id number] #### [facility] [address] [place] [address] UA Clarity Clear Normal Clear [facility] Comment on above: Performed By: #### 4 [id number] #### [facility] [facility] [address] [place] [address] UA Glucose 4+ mg/dL Abnormal Negative [facility] Comment on above: Performed By: #### 4 [id number] #### [facility] [address] [place] [address] UA Leuk Est Negative Normal Negative [facility] Comment on above: Performed By: #### 4 [id number] #### [facility] [address] [place] [address] UA Mucous Negative Normal Negative [facility] Comment on above: Performed By: #### 4 [id number] #### [facility] [address] [place] [address] UA Nitrite Negative Normal Negative [facility] Comment on above: Performed By: #### 4 [id number] #### [facility] [address] [place] [address] UA pH 6.0 Invalid Interpretation Code 5.0-9.0 [facility] Comment on above: Performed By: #### 4 [id number] #### [facility] [address] [place] [address] UA Protein 1+ mg/dL Abnormal Negative [facility] Comment on above: Performed By: #### 4 [id number] #### [facility] [address] [place] [address] UA RBC 0-3 Normal 0-3 [facility] Comment on above: Performed By: #### 4 [id number] #### [facility] [address] [place] [address] UA Spec Grav 1.024 Invalid Interpretation Code 1.005-1.030 [facility] Comment on above: Performed By: #### 4 [id number] #### [facility] [address] [place] [address] UA Urobilinogen Negative Normal Negative [facility] Comment on above: Performed By: #### 4 [id number] #### [facility] [address] [place] [address] UA WBC 0-5 Normal 0-5 [facility] Comment on above: Performed By: #### 4 [id number] #### [facility] [address] [place] [address] Urobilinogen (U) [Mass/Vol] Negative Normal Negative [facility] Comment on above: Performed By: #### 4 [id number] #### [facility] [address] [place] [address] UA Spec Desc Clean Catch Normal [facility] Comment on above: Performed By: #### 4 [id number] #### [facility] [address] [place] [address] eGFRon 03-05-2025 eGFR 38 mL/min/1.73 m2 Low >=59 [facility] Comment on above: Performed By: #### 1 [id number] #### [facility] [address] [place] [address] Basic Metabolic Panelon 05-0 Anion gap [Moles/Vol] 13.7 mmol/L Normal 6.0-15.0 [facility] Comment on above: Performed By: #### B MP, MG, BHOB, CBC #### [facility] [address] Calcium [Mass/Vol] 8.9 mg/dL Normal 8.6-10.3 [facility] Comment on above: Performed By: #### B MP, MG, BHOB, CBC #### [facility] [address] [place] [id number] [place] Chloride [Moles/Vol] 98 mmol/L Normal 98-107 [facility] Comment on above: Performed By: #### B MP, MG, BHOB, CBC #### [facility] [address] [place] [id number] [place] CO2 [Moles/Vol] 23.1 mmol/L Normal 21.0-31.0 [facility] Comment on above: Performed By: #### B MP, MG, BHOB, CBC #### [facility] [address] [place] [id number] [place] Creatinine [Mass/Vol] 1.72 mg/dL High 0.70-1.30 [facility] Comment on above: Performed By: #### B MP, MG, BHOB, CBC #### [facility] [address] [place] [id number] [place] Creatinine Clr Calc Pharmacy 55.60 Normal [facility] Comment on above: Performed By: #### B MP, MG, BHOB, CBC #### [address] Estimated GFR 43.569 mL/Min Normal [facility] Comment on above: Performed By: #### B MP, MG, BHOB, CBC #### [address] Glucose [Mass/Vol] 739 mg/dL Off scale high 70-100 Th e [facility] Comment on above: Result Comment: Crit ical Result Called to and read back by: SAMPSON WESTON at: 12/22/2024 18:30:49 by:[id number] Random Glucose Reference Range is dependent on time and content of last meal. Glucose of more than 200 mg/dL in a nonstressed, ambulatory subject supports the diagnosis of Diabetes Mellitus. ADA recommended reference range Performed By: #### B MP, MG, BHOB, CBC #### [address] Potassium [Moles/Vol] 4.8 mmol/L Normal 3.5-5.1 [facility] Comment on above: Performed By: #### B MP, MG, BHOB, CBC #### [place] [address] [place] Sodium [Moles/Vol] 130 mmol/L Low 136-145 [facility] Comment on above: Performed By: #### B MP, MG, BHOB, CBC #### [place] [address] [place] Urea nitrogen [Mass/Vol] 38 mg/dL High 7-25 [facility] Comment on above: Performed By: #### B MP, MG, BHOB, CBC #### [place] [address] [place] Beta Hydroxybuterateon 12-22 Beta Hydroxybuterate 1.12 mmol/L High 0.02-0.27 [facility] Comment on above: Result Comment: PERF ORMED BY: [place] [address] PATHOLOGIST NOC TECHNICIAN MARIA LUISA SHAH M.D. Performed By: #### B MP, MG, BHOB, CBC #### [address] Complete Blood Count Auto Di ffon 12-22-2024 Basophils (Bld) [#/Vol] 0.2 10*3/uL Normal 0.0-0.2 [facility] Comment on above: Result Comment: PERF ORMED BY: [place] [address] PATHOLOGIST NOC TECHNICIAN MARIA LUISA SHAH M.D. Performed By: #### B MP, MG, BHOB, CBC #### [address] Basophils/100 WBC (Bld) 2.6 % Normal . [facility] Comment on above: Performed By: #### B MP, MG, BHOB, CBC #### [address] Eosinophils (Bld) [#/Vol] 0.1 10*3/uL Normal 0.0-0.45 [facility] Comment on above: Performed By: #### B MP, MG, BHOB, CBC #### [address] Eosinophils/100 WBC (Bld) 2.0 % Normal . [facility] Comment on above: Performed By: #### B MP, MG, BHOB, CBC #### [address] Erythrocyte distribution width (RBC) [Ratio] 13.9 % Normal 12.0-14.8 [facility] Comment on above: Performed By: #### B MP, MG, BHOB, CBC #### [address] Hematocrit (Bld) [Volume fraction] 45.4 % Normal 38.8-50.0 [facility] Comment on above: Performed By: #### B MP, MG, BHOB, CBC #### [address] Hemoglobin (Bld) [Mass/Vol] 15.2 g/dL Normal 13.0-17.0 [facility] Comment on above: Performed By: #### B MP, MG, BHOB, CBC #### [address] Lymphocytes (Bld) [#/Vol] 1.5 10*3/uL Normal 1.00-4.8 [facility] Comment on above: Performed By: #### B MP, MG, BHOB, CBC #### [address] Lymphocytes/100 WBC (Bld) 23.7 % Normal . [facility] Comment on above: Performed By: #### B MP, MG, BHOB, CBC #### [address] MCH (RBC) [Entitic mass] 31.5 pg Normal 27.5-35.2 [facility] Comment on above: Performed By: #### B MP, MG, BHOB, CBC #### [address] MCV (RBC) [Entitic vol] 93.9 fL Normal 83.5-101 [facility] Comment on above: Performed By: #### B MP, MG, BHOB, CBC #### [address] Mean Corpuscular HGB Conc 33.5 g/dL Normal 32.5-35.6 [facility] Comment on above: Performed By: #### B MP, MG, BHOB, CBC #### [address] Monocytes (Bld) [#/Vol] 0.6 10*3/uL Normal 0.0-0.8 [facility] Comment on above: Performed By: #### B MP, MG, BHOB, CBC #### [address] Monocytes/100 WBC (Bld) 17.04 % Normal 0.00-20.00 [facility] Comment on above: Performed By: #### B MP, MG, BHOB, CBC #### [place] [address] [place] Monocytes/100 WBC (Bld) 9.3 % Normal . [facility] Comment on above: Performed By: #### B MP, MG, BHOB, CBC #### [address] Neutrophils (Bld) [#/Vol] 3.9 10*3/uL Normal 1.8-7.7 [facility] Comment on above: Performed By: #### B MP, MG, BHOB, CBC #### [address] Neutrophils/100 WBC (Bld) 62.4 % Normal . [facility] Comment on above: Performed By: #### B MP, MG, BHOB, CBC #### [address] NRBC% 0.1 /100{WBC} Normal 0-0.5 [facility] Comment on above: Performed By: #### B MP, MG, BHOB, CBC #### [place] [address] [place] Platelet mean volume (Bld) [Entitic vol] 8.2 fL Normal 6.6-10.1 [facility] Comment on above: Performed By: #### B MP, MG, BHOB, CBC #### [place] [address] [place] Platelets (Bld) [#/Vol] 206 10*3/uL Normal 150-450 [facility] Comment on above: Performed By: #### B MP, MG, BHOB, CBC #### [place] [address] [place] RBC (Bld) [#/Vol] 4.83 10*6/uL Normal 3.90-5.60 [facility] Comment on above: Performed By: #### B MP, MG, BHOB, CBC #### [place] [address] [place] WBC (Bld) [#/Vol] 6.2 10*3/uL Normal 4.1-10.5 [facility] Comment on above: Performed By: #### B MP, MG, BHOB, CBC #### [facility] [address] Glucose Poct Glucometerson 0 12-22-2024 Glucose [Mass/Vol] 394 mg/dL Normal [facility] Comment on above: Result Comment: [place] om Glucose Reference Range is dependent on time and content of last meal. Glucose of more than 200 mg/dL in a nonstressed, ambulatory subject supports the diagnosis of Diabetes Mellitus. PERFORMED BY: [place] [address] PATHOLOGIST NOC TECHNICIAN MARIA LUISA SHAH M.D. Performed By: #### G LULS #### Point of Care testing , Commemt1 Normal [facility] Comment on above: Result Comment: Glu2 : WILL NOTIFY DR/RN PERFORMED BY: [place] [address] PATHOLOGIST NOC TECHNICIAN MARIA LUISA SHAH M.D. Performed By: #### G LULS #### Point of Care testing , Glucose [Mass/Vol] 514 mg/dL Off scale high Th e [facility] Comment on above: Result Comment: [place] Glucose Reference Range is dependent on time and content of last meal. Glucose of more than 200 mg/dL in a nonstressed, ambulatory subject supports the diagnosis of Diabetes Mellitus. Performed By: #### G LULS #### Point of Care testing , Magnesiumon 12-22-2024 Magnesium [Mass/Vol] 2.0 mg/dL Normal 1.9-2.7 [facility] Comment on above: Performed By: #### B MP, MG, BHOB, CBC #### [facility] [address] Venous Blood [place] CO2 [Moles/Vol] 24.3 mmol/L Normal 24.0-29.0 [facility] Comment on above: Performed By: #### V BG #### Point of Care testing , HCO3 (Bld) [Moles/Vol] 23.1 mmol/L Normal 23.0-29.0 [facility] Comment on above: Performed By: #### V BG #### Point of Care testing , Respiratory Critical Normal [facility] Comment on above: Result Comment: Crit ical Value called on: 12/22/2024 at 17:51 PERFORMED BY: [facility] Rebecca [place] [address] PATHOLOGIST NOC TECHNICIAN MARIA LUISA SHAH M.D. Performed By: #### V BG #### Point of Care testing , VBG Base Excess -1.8 mmol/L Normal -3.0-3.0 [facility] Comment on above: Performed By: #### V BG #### Point of Care testing , VBG Draw Site Venous Normal [facility] Comment on above: Performed By: #### V BG #### Point of Care testing , VBG Frac Inspired O2 21 % Normal [facility] Comment on above: Performed By: #### V BG #### Point of Care testing , VBG O2 Content 6.8 mmol/L Normal 6.6-9.7 [facility] Comment on above: Performed By: #### V BG #### Point of Care testing , VBG Oxygen Saturation 68.3 % Low 73.0-76.0 [facility] Comment on above: Performed By: #### V BG #### Point of Care testing , VBG PCO2 39.8 mm[Hg] Normal 38.0-50.0 [facility] Comment on above: Performed By: #### V BG #### Point of Care testing , VBG PH Venous PH 7.38 Normal 7.32-7.43 [facility] Comment on above: Performed By: #### V BG #### Point of Care testing , VBG PO2 32.0 mm[Hg] Low 35.0-45.0 [facility] Comment on above: Performed By: #### V BG #### Point of Care testing , CBC w/ Auto Diffon 05-03-202 5 Basophils/100 WBC (Bld) 0.9 % Normal 0.0-2.0 [facility] Comment on above: Performed By: #### 2 [id number] #### [facility] [address] [place] [address] Basophils/Leukocytes Auto (Bld) [Pure # fraction] 0.1 E9/L Normal 0.0-0.2 [facility] Comment on above: Performed By: #### 2 [id number] #### [facility] [address] [place] [address] Eosinophils (Bld) [#/Vol] 0.3 E9/L Normal 0.0-0.5 [facility] Comment on above: Performed By: #### 2 [id number] #### [facility] [address] [place] [address] Eosinophils/100 WBC (Bld) 4.2 % Normal 0.0-8.0 [facility] Comment on above: Performed By: #### 2 [id number] #### [facility] [address] [place] [address] Erythrocyte distribution width (RBC) [Ratio] 14.0 % Normal 10.9-14.2 [facility] Comment on above: Performed By: #### 2 [id number] #### [facility] [address] [place] [address] Hematocrit (Bld) [Volume fraction] 40.7 % Normal 37.7-49.0 [facility] Comment on above: Performed By: #### 2 [id number] #### [facility] [address] [place] [address] Hemoglobin (Bld) [Mass/Vol] 14.3 g/dL Normal 13.5-17.5 [facility] Comment on above: Performed By: #### 2 [id number] #### [facility] [address] [place] [address] Lymphocytes (Bld) [#/Vol] 1.9 E9/L Normal 1.0-4.0 [facility] Comment on above: Performed By: #### 2 [id number] #### [facility] [address] [place] [address] Lymphocytes/100 WBC (Bld) 26.6 % Normal 14.0-50.0 [facility] Comment on above: Performed By: #### 2 [id number] #### [facility] [address] [place] [address] MCH (RBC) [Entitic mass] 31.3 pg Normal 27.0-34.0 [facility] Comment on above: Performed By: #### 2 [id number] #### [facility] [address] [place] [address] MCHC (RBC) [Mass/Vol] 35.1 g/dL Normal 31.4-36.0 [facility] Comment on above: Performed By: #### 2 [id number] #### [facility] [address] [place] [address] MCV (RBC) [Entitic vol] 89.2 fL Normal 80.0-100.0 [facility] Comment on above: Performed By: #### 2 [id number] #### [facility] [address] [place] [address] Monocytes (Bld) [#/Vol] 0.5 E9/L Normal 0.2-1.0 [facility] Comment on above: Performed By: #### 2 [id number] #### [facility] [address] [place] [address] Neutrophils (Bld) [#/Vol] 4.4 E9/L Normal 2.0-7.5 [facility] Comment on above: Performed By: #### 2 [id number] #### [facility] [address] [place] [address] Neutrophils/100 WBC (Bld) 61.3 % Normal 36.0-75.0 [facility] Comment on above: Performed By: #### 2 [id number] #### [facility] [address] [place] [address] Platelet mean volume (Bld) [Entitic vol] 8.2 fL Normal 6.4-10.8 [facility] Comment on above: Performed By: #### 2 [id number] #### [facility] [address] [place] [address] Platelets (Bld) [#/Vol] 205.0 E9/L Normal 150.0-500.0 [facility] Comment on above: Performed By: #### 2 [id number] #### [facility] [address] [place] [address] RBC (Bld) [#/Vol] 4.6 E12/L Normal 4.3-5.9 [facility] Comment on above: Performed By: #### 2 [id number] #### [facility] [address] [place] [address] WBC corrected for nucl RBC Auto (Bld) [#/Vol] 7.1 E9/L Normal 4.0-11.0 [facility] Comment on above: Performed By: #### 2 [id number] #### [facility] [address] [place] [address] CHEMISTRYOrdered By: Lab ROP User on 12-21-2024 Glucose [Mass/Vol] 330 mg/dL High 55 - 99 mg/dL FTM C POC Subsection Comment on above: Result Comment: Pricila elbert Meter POC Username TATYANA CASAREZ Invalid Interpretation Code FT POC Subsection Sodium [Moles/Vol] 293598264327 mmol/L Invalid Interpretation Code [facility] POC Subsection Sodium [Moles/Vol] 926822888 mmol/L Invalid Interpretation Code [facility] POC Subsection Glucose [Mass/Vol] 483 mg/dL Invalid Interpretation Code 55 - 99 mg/dL [facility] POC Subsection Comment on above: Result Comment: Pricila elbert Meter POC Username TATYANA CASAREZ Invalid Interpretation Code [facility] POC Subsection Sodium [Moles/Vol] 639664908 mmol/L Invalid Interpretation Code [facility] POC Subsection Sodium [Moles/Vol] 935900358205 mmol/L Invalid Interpretation Code [facility] POC Subsection Glucose [Mass/Vol] 361 mg/dL High 55 - 99 mg/dL FTM C POC Subsection Comment on above: Result Comment: Pricila elbert Meter POC Username TATYANA CASAREZ Invalid Interpretation Code [facility] POC Subsection Sodium [Moles/Vol] 354936517 mmol/L Invalid Interpretation Code [facility] POC Subsection Sodium [Moles/Vol] 634706102146 mmol/L Invalid Interpretation Code [facility] POC Subsection CHEMISTRYOrdered By: SYSTEM SYSTEM on [...] 12-21-2024 Albumin [Mass/Vol] 2.9 g/dL Low 3.3-5.0 [facility] Comment on above: Performed By: #### 2 [id number] #### [facility] [address] [place] [address] Albumin/Globulin (S) [Mass conc ratio] 1.1 Normal 1.1-2.2 [facility] Comment on above: Performed By: #### 2 [id number] #### [facility] [address] [place] [address] ALP [Catalytic activity/Vol] 92 Int._Unit/L Normal 21-98 [facility] Comment on above: Performed By: #### 2 [id number] #### [facility] [address] [place] [address] ALT No additional P-5'-P [Catalytic activity/Vol] 16 Int._Unit/L Normal 6-46 [facility] Comment on above: Performed By: #### 2 539004 #### [facility] [address] [place] [address] Anion gap [Moles/Vol] 11 mmol/L Normal 6-16 [facility] Comment on above: Performed By: #### 2 [id number] #### [facility] [address] [place] [address] AST [Catalytic activity/Vol] 16 Int._Unit/L Normal 5-43 [facility] Comment on above: Performed By: #### 2 [id number] #### [facility] [address] [place] [address] Bilirubin [Mass/Vol] 0.6 mg/dL Normal 0.0-1.1 [facility] Comment on above: Performed By: #### 2 759208 #### [facility] [address] [place] [address] Calcium [Mass/Vol] 8.1 mg/dL Low 8.9-11.1 [facility] Comment on above: Performed By: #### 2 [id number] #### [facility] [address] [place] [address] Chloride [Moles/Vol] 102 mmol/L Normal 101-111 [facility] Comment on above: Performed By: #### 2 310004 #### [facility] [address] [place] [address] CO2 [Moles/Vol] 25 mmol/L Normal 21-31 [facility] Comment on above: Performed By: #### 2 [id number] #### [facility] [address] [place] [address] Creatinine [Mass/Vol] 1.7 mg/dL High 0.5-1.3 [facility] Comment on above: Performed By: #### 2 [id number] #### [facility] [address] [place] [address] Globulin (S) [Mass/Vol] 2.7 g/dL Normal 1.4-4.0 [facility] Comment on above: Performed By: #### 2 617083 #### [facility] [address] [place] [address] Glucose [Mass/Vol] 307 mg/dL High 55-199 [facility] Comment on above: Performed By: #### 2 101339 #### [facility] [address] [place] [address] Potassium [Moles/Vol] 4.0 mmol/L Normal 3.5-5.3 [facility] Comment on above: Performed By: #### 2 808137 #### [facility] [address] [place] [address] Protein [Mass/Vol] 5.6 g/dL Low 6.0-7.8 [facility] Comment on above: Performed By: #### 2 840545 #### [facility] [address] [place] [address] Sodium [Moles/Vol] 134 mmol/L Low 135-145 [facility] Comment on above: Performed By: #### 2 070656 #### [facility] [address] [place] [address] Urea nitrogen [Mass/Vol] 46 mg/dL High 5-21 [facility] Comment on above: Performed By: #### 2 [id number] #### [facility] [address] [place] [address] Urea nitrogen/Creatinine [Mass ratio] 27 No Units High 10-20 [facility] Comment on above: Performed By: #### 2 500336 #### [facility] [address] [place] [address] Capillary Glucose POCon 05-0 Glucose [Mass/Vol] 330 mg/dL High 55-99 [facility] Comment on above: Result Comment: Pricila elbert Meter Performed By: #### 2 [id number] #### [facility] [address] [place] [address] Glucose [Mass/Vol] 483 mg/dL Abnormal 55-99 [facility] Comment on above: Result Comment: Pricila elbert Meter Performed By: #### 2 [id number] #### [facility] [address] [place] [address] Glucose [Mass/Vol] 361 mg/dL High 55-99 [facility] Comment on above: Result Comment: Pricila elbert Meter Performed By: #### 2 [id number] #### [facility] [address] [place] [address] Glucose [Mass/Vol] 274 mg/dL High 55-99 [facility] Comment on above: Result Comment: Thelma maxwell RN/ Performed By: #### 2 [id number] #### [facility] [address] [place] [address] Glucose [Mass/Vol] 246 mg/dL High 55-99 [facility] Comment on above: Result Comment: Thelma maxwell RN/ Performed By: #### 2 [id number] #### [facility] [address] [place] [address] Glucose [Mass/Vol] 95 mg/dL Normal 55-99 [facility] Comment on above: Result Comment: Thelma maxwell RN/ Performed By: #### 2 [id number] #### [facility] [address] [place] [address] Glucose [Mass/Vol] 91 mg/dL Normal 55-99 [facility] Comment on above: Performed By: #### 2 [id number] #### [facility] [address] [place] [address] ED Note-Physicianon 12-22-19 25 ED Note-Physician ED [...] BID, # 20 cap(s), Refills(s) 0, Pharmacy: [facility] #[id number], 183, cm, 06/23/24 13:45:00 EST, Height/Length Dosing, [...] IV Dispos (more content not included)... Normal [facility] Comment on above: Result Comment: Elec [...] day(s), # 9 tab(s), Refills(s) 0, Pharmacy: [facility] #[id number], 183, cm, 12/19/24 10:26:00 EDT, Height/Length Dosing, [...] NS 1000 ml Bolus, 1000 mL, IV CX0191 [F], 1000 mL, IV Valium 5 mg [...] days 12/22/[address] [place] [address]- Business (1) Additional Instructions: Patient Education Hyperglycemia Attestation I performed a substantive part of the MDM during the patient???s E/M visit. I personally made or approved the documented management plan and acknowledge its r (more content not included)... Normal [facility] Comment on above: Result Comment: Elec [...] Discharge Instructions Follow up closely with your boat washer. Return to ER if symptoms return or worsen. Do not start tradjenta prescribed by your boat washer until you speak ask him it if is safe with your insulin. Can cause lows together. New Follow Up Appointments after Discharge Follow Up with KAYLA SWEENEY When: Comments: Follow as scheduled in December 2024 Where: [address], [address] [place] [address]- Business (1) Follow Up with Mounika Brooke When: Within 7 to 10 days Comments: Call for followup appointment Where: [address] [place] [address]- [facility] (1) Medications What How Much When Why Instructions Next Dose New losartan (losartan 50 mg Tab) 1 Tablets By Mouth Every day Hypertension Refills: 1 [id number] 12/22 @ 0900am [facility] Prescription (Glucose Kit) See instructions Hyperglycemia Glucose meter. Include autolet, matching test strips, lancets, & alcohol wipes, #100 or as allowed by insurance; DX: E11.9 [id number] Prescription (Pen Needle 31G x 6mm) See instructions Hyperglycemia Refills: 1 Pen Needle 31G x 6mm [id number] Changed insulin regular (HumuLIN R KwikPen (Concentrated) human recombinant 500 units/ mL subcutaneous solution) See instructions Diabetes mellitus with neuropathy inject 40 units under the skin in the morning, 40 in the evening and 20 at bedtime. [id number] 12/21 @ 0800pm Unchanged gabapentin (gabapentin 600 mg Tab) 1 Tablets By Mouth 3 times a day resume Unchanged methocarbamol (Robaxin-750 oral tablet) 1 Tablets By Mouth 3 times a day Duration: 3 Days resume Pharmacy Information [facility] [employer] [id number] [address] [facility] [place] [place] [id number] [phone] Test Results CBC BMP WBC: 7.1 E9/L [...] (12/21/24 05:04: (more content not included)... Normal [facility] eGFRon 12-21-2024 eGFR 44 mL/min/1.73 m2 Low >=59 [facility] Comment on above: Performed By: #### 1 [id number] #### [facility] [address] [place] [address] BMPon 12-20-2024 Glucose [Mass/Vol] 792 mg/dL Abnormal 55-199 [facility] Comment on above: Result Comment: Crit ical Result [id number] Called to and read back by: PADDY BETANCOURT at: 12/20/2024 15:01:20 by:[email or web address] Critical Result Verified by Repeat Analysis Performed By: #### 2 [id number] #### [facility] [address] [place] [address] Anion gap [Moles/Vol] 16 mmol/L Normal 6-16 [facility] Comment on above: Performed By: #### 2 [id number] #### [facility] [address] [place] [address] Creatinine [Mass/Vol] 1.9 mg/dL High 0.5-1.3 [facility] Comment on above: Performed By: #### 2 [id number] #### [facility] [address] [place] [address] Urea nitrogen [Mass/Vol] 52 mg/dL High 5-21 [facility] Comment on above: Performed By: #### 2 [id number] #### [facility] [address] [place] [address] Urea nitrogen/Creatinine [Mass ratio] 27 No Units High 10-20 [facility] Comment on above: Performed By: #### 2 [id number] #### [facility] [address] [place] [address] Calcium [Mass/Vol] 8.8 mg/dL Low 8.9-11.1 [facility] Comment on above: Performed By: #### 2 [id number] #### [facility] [address] [place] [address] Chloride [Moles/Vol] 88 mmol/L Low 101-111 [facility] Comment on above: Performed By: #### 2 [id number] #### [facility] [address] [place] [address] CO2 [Moles/Vol] 24 mmol/L Normal 21-31 [facility] Comment on above: Performed By: #### 2 [id number] #### [facility] [address] [place] [address] Potassium [Moles/Vol] 5.0 mmol/L Normal 3.5-5.3 [facility] Comment on above: Performed By: #### 2 [id number] #### [facility] [address] [place] [address] Sodium [Moles/Vol] 123 mmol/L Low 135-145 [facility] Comment on above: Performed By: #### 2 [id number] #### [facility] [address] [place] [address] BOHBon 12-20-2024 Beta HB Qnt 2.86 mmol/L High 0.02-0.27 [facility] Comment on above: Performed By: #### 2 [id number] #### [facility] [address] [place] [address] Blood Gas Art, with Lytes, G hugh, [place] 12-20-2024 a/A Ratio Art 63.60 % Normal >=0.80 [facility] Comment on above: Performed By: #### 4 [id number] #### [facility] [address] [place] [address] AaDO2 Art 36.1 mmHg High 5.0-15.0 [facility] Comment on above: Performed By: #### 4 [id number] #### [facility] [address] [place] [address] Allens Test Positive Normal [facility] Comment on above: Performed By: #### 4 [id number] #### [facility] [address] [place] [address] Base Excess Arterial -2.8 mmol/L Low >=2.8 [facility] Comment on above: Performed By: #### 4 [id number] #### [facility] [address] [place] [address] cCa2+ Art 4.78 mg/dL Normal 4.40-5.30 [facility] Comment on above: Performed By: #### 4 [id number] #### [facility] [address] [place] [address] cCl- Art 92.0 mmol/L Low 101.0-111.0 [facility] Comment on above: Performed By: #### 4 [id number] #### [facility] [address] [place] [address] cGlu Art 749 mg/dL Abnormal 55-99 [facility] Comment on above: Result Comment: Resu lts Called To NICOLE MYERS By ASHLEY TUBBS12/20/2024 14:12:32 EDT And Read Back For Confirmation On _. Performed By: #### 4 [id number] #### [facility] [address] [place] [address] cK+ Art 4.5 mmol/L Normal 3.5-5.3 [facility] Comment on above: Performed By: #### 4 [id number] #### [facility] [address] [place] [address] cLac Art .8 mmol/L Normal .5-2.2 [facility] Comment on above: Performed By: #### 4 [id number] #### [facility] [address] [place] [address] communications maintainer+ Art 125.0 mmol/L Low 135.0-145.0 [facility] Comment on above: Performed By: #### 4 [id number] #### [facility] [address] [place] [address] Drawn by DCC Invalid Interpretation Code [facility] Comment on above: Performed By: #### 4 [id number] #### [facility] [address] [place] [address] FCOHb Art 2.1 % Normal 1.5-4.9 [facility] Comment on above: Result Comment: Refe rence range Nonsmoker <1.5% Smoker <5.0% Heavy Smoker <9.0% Performed By: #### 4 [id number] #### [facility] [address] [place] [address] FIO2 BG 21 Invalid Interpretation Code [facility] Comment on above: Performed By: #### 4 [id number] #### [facility] [address] [place] [address] FO2Hb Art 91.9 % Low 93.0-100.0 [facility] Comment on above: Performed By: #### 4 [id number] #### [facility] [address] [place] [address] HCO3 (Bld) [Moles/Vol] 22.0 mmol/L Normal 22.0-26.0 [facility] Comment on above: Performed By: #### 4 [id number] #### [facility] [address] [place] [address] Hemoglobin (Bld) [Mass/Vol] 15.4 g/dL Normal 12.0-17.0 [facility] Comment on above: Performed By: #### 4 [id number] #### [facility] [address] [place] [address] Oxygen saturation in Blood 93.9 % Low 95.0-100.0 [facility] Comment on above: Performed By: #### 4 [id number] #### [facility] [address] [place] [address] P CO2 Arterial 40.0 mmHg Normal 35.0-45.0 [facility] Comment on above: Performed By: #### 4 [id number] #### [facility] [address] [place] [address] P O2 Arterial 63.1 mmHg Low 80.0-100.0 [facility] Comment on above: Performed By: #### 4 [id number] #### [facility] [address] [place] [address] pH Arterial 7.358 Normal 7.350-7.450 [facility] Comment on above: Performed By: #### 4 [id number] #### [facility] [address] [place] [address] Sample Site R Radial Normal [facility] Comment on above: Performed By: #### 4 [id number] #### [facility] [address] [place] [address] Sample Type Arterial Draw Normal [facility] Comment on above: Performed By: #### 4 [id number] #### [facility] [address] [place] [address] CBC w/ Auto Diffon 5 Basophils/100 WBC (Bld) 1.1 % Normal 0.0-2.0 [facility] Comment on above: Performed By: #### 2 [id number] #### [facility] [address] [place] [address] Basophils/Leukocytes Auto (Bld) [Pure # fraction] 0.1 E9/L Normal 0.0-0.2 [facility] Comment on above: Performed By: #### 2 [id number] #### [facility] [address] [place] [address] Eosinophils (Bld) [#/Vol] 0.2 E9/L Normal 0.0-0.5 [facility] Comment on above: Performed By: #### 2 [id number] #### [facility] [address] [place] [address] Eosinophils/100 WBC (Bld) 3.8 % Normal 0.0-8.0 [facility] Comment on above: Performed By: #### 2 [id number] #### [facility] [address] [place] [address] Erythrocyte distribution width (RBC) [Ratio] 13.6 % Normal 10.9-14.2 [facility] Comment on above: Performed By: #### 2 [id number] #### [facility] [address] [place] [address] Hematocrit (Bld) [Volume fraction] 46.1 % Normal 37.7-49.0 [facility] Comment on above: Performed By: #### 2 [id number] #### [facility] [address] [place] [address] Hemoglobin (Bld) [Mass/Vol] 15.6 g/dL Normal 13.5-17.5 [facility] Comment on above: Performed By: #### 2 [id number] #### [facility] [address] [place] [address] Lymphocytes (Bld) [#/Vol] 1.3 E9/L Normal 1.0-4.0 [facility] Comment on above: Performed By: #### 2 [id number] #### [facility] [address] [place] [address] Lymphocytes/100 WBC (Bld) 21.6 % Normal 14.0-50.0 [facility] Comment on above: Performed By: #### 2 [id number] #### [facility] [address] [place] [address] MCH (RBC) [Entitic mass] 30.9 pg Normal 27.0-34.0 [facility] Comment on above: Performed By: #### 2 [id number] #### [facility] [address] [place] [address] MCHC (RBC) [Mass/Vol] 33.9 g/dL Normal 31.4-36.0 [facility] Comment on above: Performed By: #### 2 [id number] #### [facility] [address] [place] [address] MCV (RBC) [Entitic vol] 91.3 fL Normal 80.0-100.0 [facility] Comment on above: Performed By: #### 2 [id number] #### [facility] [address] [place] [address] Monocytes (Bld) [#/Vol] 0.6 E9/L Normal 0.2-1.0 [facility] Comment on above: Performed By: #### 2 [id number] #### [facility] [address] [place] [address] Neutrophils (Bld) [#/Vol] 4.0 E9/L Normal 2.0-7.5 [facility] Comment on above: Performed By: #### 2 [id number] #### [facility] [address] [place] [address] Neutrophils/100 WBC (Bld) 64.6 % Normal 36.0-75.0 [facility] Comment on above: Performed By: #### 2 [id number] #### [facility] [address] [place] [address] Platelet mean volume (Bld) [Entitic vol] 8.0 fL Normal 6.4-10.8 [facility] Comment on above: Performed By: #### 2 [id number] #### [facility] [address] [place] [address] Platelets (Bld) [#/Vol] 190.0 E9/L Normal 150.0-500.0 [facility] Comment on above: Performed By: #### 2 [id number] #### [facility] [address] [place] [address] RBC (Bld) [#/Vol] 5.1 E12/L Normal 4.3-5.9 [facility] Comment on above: Performed By: #### 2 [id number] #### [facility] [address] [place] [address] WBC corrected for nucl RBC Auto (Bld) [#/Vol] 6.2 E9/L Normal 4.0-11.0 [facility] Comment on above: Performed By: #### 2 [id number] #### [facility] [address] [place] [address] CHEMISTRYOrdered By: SYSTEM SYSTEM on 12-20-2024 Albumin [...] back by: PADDY BETANCOURT at: 12/20/2024 15:01:20 by:[id number] Critical Result Verified by Repeat Analysis Potassium [...] 05 Glucose [Mass/Vol] 180 mg/dL High 55-99 [facility] Comment on above: Result Comment: Thelma BAE Performed By: #### 2 [id number] #### [facility] [address] [place] [address] Glucose [Mass/Vol] 478 mg/dL Abnormal 55-99 [facility] Comment on above: Result Comment: Thelma BAE Performed By: #### 2 [id number] #### [facility] [address] [place] [address] Glucose [Mass/Vol] 476 mg/dL Abnormal 55-99 [facility] Comment on above: Result Comment: Thelma BAE Performed By: #### 2 [id number] #### [facility] [address] [place] [address] Glucose [Mass/Vol] mg/dL Abnormal 55-99 [facility] Comment on above: Result Comment: Thelma BAE Performed By: #### 2 [id number] #### [facility] [address] [place] [address] Glucose [Mass/Vol] mg/dL Abnormal 55-99 [facility] Comment on above: Result Comment: Thelma maxwell RN/ Performed By: #### 2 [id number] #### [facility] [address] [place] [address] Glucose [Mass/Vol] mg/dL Abnormal 55-99 [facility] Comment on above: Performed By: #### 2 [id number] #### [facility] [address] [place] [address] ED Clinical Summaryon 2024 ED Clinical Summary ED Clinical Summary [address] [address] ED Clinical Summary Person Information Name: NICOLE LORA [facility] Age: 64 Years : 1960 Sex: Male Language: Montserratian PCP: Mounika Brooke MD Marital Status: Phone: [phone] Visit Id: Visit Reason: Knee pain-swelling; Hyperglycemia; L KNEE PAIN Speciality: Acuity: 3 Enc Type: Observation Med Service: Medical Arrival: 12/20/2024 13:29:49 Discharge: LOS: 000 05:27 Checkin: 12/20/2024 13:29:49 Checkout: 12/20/2024 18:56:56 Dispo Type: Admitted as IP to this [facility] EVENTS: Event Name Event Status Request Date/Time [...] 12/20/2024 18:35:13 12/20/2024 18:35:13 12/20/2024 18:35:14 ADDRESS: [address] [place] [id number] [facility] DOC NOTES: MEDICAL INFORMATION: Prescriptions Given: [...] of other right toe(s); 6:Hyponatremia; 7:Obesity Normal [facility] ED Patient Education Noteon 12-20-2024 ED Patient Education Note ED Patient Education Note Normal [facility] ED Patient Summaryon 025 ED Patient Summary ED Patient Summary [place] [id number] Patient Discharge Instructions Person Information Name: NICOLE LORA Age: 64 Years Arrival Date: 12/20/2024 13:29:49 Discharge Diagnosis: 1:Hyperglycemia; 2:Leg muscle spasm; 3:Noncompliance with medication regimen; 4:AMY (acute kidney injury); 5:Acquired absence of other right toe(s); 6:Hyponatremia; 7:Obesity Primary Care Physician: Mendy LYMAN, Mounika Lugo Provider Information Primary Provider: Nicole Myers DO Advanced Problem Manager:Paddy Betancourt PA-C The exam and treatment you received in the Emergency Department were for an urgent problem and are not intended as complete care. It is important that you follow up with a doctor, nurse practitioner, or physician???s transport assistant for ongoing care. If your symptoms [...] opioids can be used to help relieve bpetpjuo-ku-bpurdk pain and are often prescribed following a [...] be struggling with addiction, tell your health caregiver assisted living and ask for (more content not included)... Normal [facility] Extra Blueon 12-20-2024 Tube Collected Plasma Yes Invalid Interpretation Code [facility] Comment on above: Performed By: #### 1 [id number] #### [facility] [address] [place] [id number] Blood GasesOrdered By: Akash Tubbs on 12-20-2024 a/A Ratio Art 63.60 % Normal >=0.80% [facility] Resp Auto SS AaDO2 Art 36.1 mm[Hg] High 5.0 - 15.0 mmHg [facility] Res p Auto SS Allens Test Positive (12/20/24 2:09 PM) Normal [facility] Resp Auto SS Base Excess Arterial -2.8 mmol/L Low >=2.8mmol/L FT Resp Auto SS cCa2+ Art 4.78 mg/dL Normal 4.40 - 5.30 mg/dL [facility] Re sp Auto SS cCl- Art 92.0 mmol/L Low 101.0 - 111.0 mmol/L [facility] Resp Auto SS cGlu Art 749 mg/dL Invalid Interpretation Code 55 - 99 mg/dL [facility] Resp Auto SS Comment on above: Result Comment: Resu lts Called To NICOLE MYERS By ASHLEY TUBBS12/20/2024 14:12:32 EDT And Read Back For Confirmation On _. cK+ Art 4.5 mmol/L Normal 3.5 - 5.3 mmol/L [facility] Res p Auto SS cLac Art 0.8 mmol/L Normal 0.5 - 2.2 mmol/L [facility] Res p Auto SS communications maintainer+ Art 125.0 mmol/L Low 135.0 - 145.0 mmol/L [facility] Resp Auto SS Drawn by DCC Invalid Interpretation Code [facility] Resp Auto SS FCOHb Art 2.1 % Normal 1.5 - 4.9 % [facility] Resp Auto SS Comment on above: Interpretive Data: R eference range Nonsmoker <1.5% Smoker <5.0% Heavy Smoker <9.0% FO2Hb Art 91.9 % Low 93.0 - 100.0 % [facility] Resp Auto SS HCO3 (Bld) [Moles/Vol] 22.0 mmol/L Normal 22.0 - 26.0 mmol/L [facility] Resp Auto SS Hemoglobin (Bld) [Mass/Vol] 15.4 g/dL Normal 12.0 - 17.0 gm/dL [facility] Resp Auto SS P CO2 Arterial 40.0 mm[Hg] Normal 35.0 - 45.0 mmHg FTM C Resp Auto SS P O2 Arterial 63.1 mm[Hg] Low 80.0 - 100.0 mmHg FTM C Resp Auto SS pH (Bld) 7.358 [pH] Normal 7.350 - 7.450 [facility] Resp Auto SS Sample Site R Radial (12/20/24 2:09 PM) Normal [facility] Resp Auto SS Sample Type Arterial Draw (12/20/24 2:09 PM) Normal [facility] Resp Auto SS Sodium [Moles/Vol] 21 mmol/L Invalid Interpretation Code [facility] Resp Auto SS HEMATOLOGYOrdered By: SYSTEM SYSTEM [...] (S) [Mass conc ratio] 1.1 Normal 1.1-2.2 [facility] Comment on above: Performed By: #### 2 [id number] #### [facility] [address] [place] [address] Bilirubin.indirect [Mass or moles/Vol] 0.8 mg/dL Normal 0.1-0.9 [facility] Comment on above: Performed By: #### 2 [id number] #### [facility] [address] [place] [address] Globulin (S) [Mass/Vol] 3.3 g/dL Normal 1.4-4.0 [facility] Comment on above: Performed By: #### 2 [id number] #### [facility] [address] [place] [address] Albumin [Mass/Vol] 3.5 g/dL Normal 3.3-5.0 [facility] Comment on above: Performed By: #### 2 [id number] #### [facility] [address] [place] [address] ALP [Catalytic activity/Vol] 156 Int._Unit/L High 21-98 [facility] Comment on above: Performed By: #### 2 [id number] #### [facility] [address] [place] [address] ALT No additional P-5'-P [Catalytic activity/Vol] 22 Int._Unit/L Normal 6-46 [facility] Comment on above: Performed By: #### 2 [id number] #### [facility] [address] [place] [address] AST [Catalytic activity/Vol] 18 Int._Unit/L Normal 5-43 [facility] Comment on above: Performed By: #### 2 [id number] #### [facility] [address] [place] [address] Bilirubin [Mass/Vol] 0.9 mg/dL Normal 0.0-1.1 [facility] Comment on above: Performed By: #### 2 [id number] #### [facility] [address] [place] [address] Bilirubin.direct [Mass/Vol] 0.1 mg/dL Normal 0.0-0.4 [facility] Comment on above: Performed By: #### 2 071526 #### [facility] [address] [place] [address] Protein [Mass/Vol] 6.8 g/dL Normal 6.0-7.8 [facility] Comment on above: Performed By: #### 2 [id number] #### [facility] [address] [place] [address] Pre-Arrival Noteon Pre-Arrival Note Pre-Arrival Note Pre-Arrival Summary Name: , [facility] Current Date: 12/20/2024 13:30:15 EDT Gender: Male Date of : Age: 64 Pre-Arrival Type: EMS ETA: 12/20/2024 13:49:00 EDT Primary Care Physician: Presenting Problem: L knee pain, seen yesterday AMA? Pre-Arrival User: Kiersten Theodore RN Referring Source: Location: [place] Completion Date/Time: 12/20/2024 13:20:00 [facility] Emergency Department Pre-Hospital Report Form Vital Signs: Pre-Hospital Report: Treatment in Route: Response to Treatment: Misc. Issues: Normal [facility] UA with Cult Rflxon 12-21-19 25 Bilirubin Ql (U) Negative Normal Negative [facility] Comment on above: Performed By: #### 4 [id number] #### [facility] [address] [place] [address] Clarity (U) Clear Normal Clear [facility] Comment on above: Performed By: #### 4 [id number] #### [facility] [address] [place] [address] Color (U) Colorless Abnormal Yellow [facility] Comment on above: Result Comment: Micr oscopic readings are only performed on those samples that meet specific criteria set forth by [facility]. Performed By: #### 4 [id number] #### [facility] [address] [place] [address] Glucose Ql (U) 4+ mg/dL Abnormal Negative [facility] Comment on above: Performed By: #### 4 [id number] #### [facility] [address] [place] [address] Hemoglobin Auto test strip (U) [Mass/Vol] Negative Normal Negative [facility] Comment on above: Performed By: #### 4 [id number] #### [facility] [address] [place] [address] Ketones Auto test strip Ql (U) Trace Abnormal Negative [facility] Comment on above: Performed By: #### 4 [id number] #### [facility] [address] [place] [address] Leukocyte esterase Auto test strip Ql (U) Negative Normal Negative [facility] Comment on above: Performed By: #### 4 [id number] #### [facility] [address] [place] [address] Mucus Auto Ql (U) Negative Normal Negative [facility] Comment on above: Performed By: #### 4 [id number] #### [facility] [address] [place] [address] Nitrite Auto test strip Ql (U) Negative Normal Negative [facility] Comment on above: Performed By: #### 4 [id number] #### [facility] [address] [place] [address] pH (U) 5.5 [pH] Invalid Interpretation Code 5.0-9.0 [facility] Comment on above: Performed By: #### 4 [id number] #### [facility] [address] [place] [address] Protein Ql (U) 1+ mg/dL Abnormal Negative [facility] Comment on above: Performed By: #### 4 [id number] #### [facility] [address] [place] [address] Specific gravity (U) [Rel density] 1.018 Invalid Interpretation Code 1.005-1.030 [facility] Comment on above: Performed By: #### 4 [id number] #### [facility] [address] [place] [id number] Urobilinogen (U) [Mass/Vol] Negative Normal Negative [facility] Comment on above: Performed By: #### 4 [id number] #### [facility] [address] [place] [address] Type of Urine collection method Clean Catch Normal [facility] Comment on above: Performed By: #### 4 [id number] #### [facility] Laboratory [address] [place] [address] URINALYSISOrdered By: SYSTEM SYSTEM on 12-20-2024 Bilirubin Ql (U) Negative Normal Negativemg/dL [facility] UA Auto SS Clarity (U) Clear (12/20/24 4:37 PM) Normal Clear [facility] UA Auto SS Color (U) Colorless 1 *ABN* (12/20/24 4:37 PM) Invalid Interpretation Code Yellow [facility] UA Auto SS Comment on above: Interpretive Data: M icroscopic readings are only performed on those samples that meet specific criteria set forth by [facility]. Glucose Ql (U) 4+ mg/dL Invalid Interpretation Code Negativemg/dL [facility] UA Auto SS Hemoglobin Auto test strip [...] (U) 1+ mg/dL Invalid Interpretation Code Negativemg/dL [facility] UA Auto SS Specific gravity (U) [Rel density] 1.018 *NA* (12/20/24 4:37 PM) Invalid Interpretation Code 1.005 - 1.030 [facility] UA Auto SS Urobilinogen (U) [Mass/Vol] Negative Normal Negativemg/dL [facility] UA Auto SS URINALYSISOrdered By: Paddy turner on 12-20-2024 UA Spec Desc Clean Catch (12/20/24 4:37 PM) Normal [facility] UA Auto SS Work Phone: XR Chest [...] MD Transcribed by: KAT Technologist: , Normal [facility] eGFRon 12-20-2024 eGFR 38 mL/min/1.73 m2 Low >=59 [facility] Comment on above: Performed By: #### 1 [id number] #### [facility] [address] [place] [address] BMPon 12-19-2024 Anion gap [Moles/Vol] 15 mmol/L Normal 6-16 [facility] Comment on above: Performed By: #### 2 [id number] #### [facility] [address] [place] [address] Calcium [Mass/Vol] 8.1 mg/dL Low 8.9-11.1 [facility] Comment on above: Performed By: #### 2 [id number] #### [facility] [address] [place] [address] Chloride [Moles/Vol] 80 mmol/L Abnormal 101-111 [facility] Comment on above: Result Comment: Crit ical Result Verified by Repeat Analysis Critical Result S_CL:80 Called to and read back by: TREMAINE LAND at: 12/19/2024 12:00:32 by:VANESSA Performed By: #### 2 [id number] #### [facility] [address] [place] [address] CO2 [Moles/Vol] 24 mmol/L Normal 21-31 [facility] Comment on above: Performed By: #### 2 [id number] #### [facility] [address] [place] [address] Creatinine [Mass/Vol] 1.9 mg/dL High 0.5-1.3 [facility] Comment on above: Performed By: #### 2 [id number] #### [facility] [address] [place] [address] Glucose [Mass/Vol] 1228 mg/dL Abnormal 55-199 [facility] Comment on above: Result Comment: Crit ical Result Verified by Repeat Analysis Result Verified by Dilution Critical Result S_GLU:[id number] Called to and read back by: TREMAINE LAND at: 12/19/2024 12:00:32 by:VANESSA Performed By: #### 2 [id number] #### [facility] [address] [place] [address] Potassium [Moles/Vol] 4.7 mmol/L Normal 3.5-5.3 [facility] Comment on above: Performed By: #### 2 [id number] #### [facility] [address] [place] [address] Sodium [Moles/Vol] 114 mmol/L Abnormal 135-145 [facility] Comment on above: Result Comment: Crit ical Result Verified by Repeat Analysis Critical Result S_NA of 114 Called to and read back by: TREMAINE LAND at: 12/19/2024 12:00:32 by:VANESSA Performed By: #### 2 [id number] #### [facility] [address] [place] [address] Urea nitrogen [Mass/Vol] 54 mg/dL High 5-21 [facility] Comment on above: Performed By: #### 2 055486 #### [facility] [address] [place] [address] Urea nitrogen/Creatinine [Mass ratio] 28 No Units High 10-20 [facility] Comment on above: Performed By: #### 2 [id number] #### [facility] [address] [place] [address] BOHBon 12-19-2024 Beta HB Qnt 1.12 mmol/L High 0.02-0.27 [facility] Comment on above: Performed By: #### 2 [id number] #### [facility] [address] [place] [address] CBC w/ Auto Diffon 5 Basophils/100 WBC (Bld) 0.8 % Normal 0.0-2.0 [facility] Comment on above: Performed By: #### 2 516214 #### [facility] [address] [place] [address] Basophils/Leukocytes Auto (Bld) [Pure # fraction] 0.1 E9/L Normal 0.0-0.2 [facility] Comment on above: Performed By: #### 2 836971 #### [facility] [address] [place] [address] Eosinophils (Bld) [#/Vol] 0.2 E9/L Normal 0.0-0.5 [facility] Comment on above: Performed By: #### 2 425341 #### [facility] [address] [place] [address] Eosinophils/100 WBC (Bld) 3.6 % Normal 0.0-8.0 [facility] Comment on above: Performed By: #### 2 553816 #### [facility] [address] [place] [address] Erythrocyte distribution width (RBC) [Ratio] 13.4 % Normal 10.9-14.2 [facility] Comment on above: Performed By: #### 2 594360 #### [facility] [address] [place] [address] Hematocrit (Bld) [Volume fraction] 46.6 % Normal 37.7-49.0 [facility] Comment on above: Performed By: #### 2 054389 #### [facility] [address] [place] [address] Hemoglobin (Bld) [Mass/Vol] 15.3 g/dL Normal 13.5-17.5 [facility] Comment on above: Performed By: #### 2 966525 #### [facility] [address] [place] [address] Lymphocytes (Bld) [#/Vol] 1.6 E9/L Normal 1.0-4.0 [facility] Comment on above: Performed By: #### 2 [id number] #### [facility] [address] [place] [address] Lymphocytes/100 WBC (Bld) 24.8 % Normal 14.0-50.0 [facility] Comment on above: Performed By: #### 2 836219 #### [facility] [address] [place] [address] MCH (RBC) [Entitic mass] 31.0 pg Normal 27.0-34.0 [facility] Comment on above: Performed By: #### 2 121313 #### [facility] [address] [place] [address] MCHC (RBC) [Mass/Vol] 32.7 g/dL Normal 31.4-36.0 [facility] Comment on above: Performed By: #### 2 674555 #### [facility] [address] [place] [address] MCV (RBC) [Entitic vol] 94.8 fL Normal 80.0-100.0 [facility] Comment on above: Performed By: #### 2 [id number] #### [facility] [address] [place] [address] Monocytes (Bld) [#/Vol] 0.6 E9/L Normal 0.2-1.0 [facility] Comment on above: Performed By: #### 2 871302 #### [facility] [address] [place] [address] Neutrophils (Bld) [#/Vol] 3.9 E9/L Normal 2.0-7.5 [facility] Comment on above: Performed By: #### 2 939149 #### [facility] [address] [place] [address] Neutrophils/100 WBC (Bld) 61.6 % Normal 36.0-75.0 [facility] Comment on above: Performed By: #### 2 313594 #### [facility] [address] [place] [address] Platelet 219.0 E9/L Normal 150.0-500.0 [facility] Comment on above: Performed By: #### 2 315525 #### [facility] [address] [place] [address] Platelet mean volume (Bld) [Entitic vol] 8.5 fL Normal 6.4-10.8 [facility] Comment on above: Performed By: #### 2 165384 #### [facility] [address] [place] [address] RBC (Bld) [#/Vol] 4.9 E12/L Normal 4.3-5.9 [facility] Comment on above: Performed By: #### 2 652676 #### [facility] [address] [place] [address] WBC corrected for nucl RBC Auto (Bld) [#/Vol] 6.4 E9/L Normal 4.0-11.0 [facility] Comment on above: Performed By: #### 2 739737 #### [facility] [address] [place] [address] Capillary Glucose POCon 05-0 1-2025 Glucose [Mass/Vol] mg/dL Abnormal 55-99 [facility] Comment on above: Result Comment: Thelma maxwell RN/MD Performed By: #### 2 [id number] #### [facility] [address] [place] [address] ED Clinical Summaryon 2024 ED Clinical Summary ED Clinical Summary [address] [address] ED Clinical Summary Person Information Name: NICOLE LORA [facility] Age: 64 Years : 1960 Sex: Male Language: Montserratian PCP: Mounika Brooke MD Marital Status: Phone: [phone] Visit Id: Visit Reason: Leg pain-swelling; Weakness [...] 12/19/2024 14:13:49 12/19/2024 14:13:49 ADDRESS: [address] [id number] PHYS DOC NOTES: MEDICAL INFORMATION: Prescriptions Given: New Medications [id number], [address], [place] [id number], [phone] methocarbamol (Robaxin-750 oral tablet) 1 Tablets By [...] Refills: 4. Misc Prescription (Freestyle Sage 2 [place]) Use daily with sensor. Refills: 0. Misc Prescription (Freestyle Sage 2 Sensors) Apply one q 14 days. Refills: 3. Misc Prescription (Glucometer test strips) Test TID DX E11.40 on insulin. Refills: 11. Misc Prescription (Glucometer) Dispense 1 Glucometer. Refills: 0. Misc Prescription (Insulin Pen [place] 31g x 8 mm) Use up to 4 daily. Refills: 4. (more content not included)... Normal [facility] ED Patient Summaryon 025 ED Patient Summary ED Patient Summary [place] [id number] Patient Discharge Instructions Person Information Name: NICOLE LORA Age: 64 Years Arrival Date: 12/19/2024 10:20:20 Discharge Diagnosis: Hyperglycemia; Muscle cramps Primary Care Physician: Mounika Brooke MD Provider Information Primary Provider: Corky Luo MD Advanced Problem Manager:Jesus Grijalva PA-C The exam and treatment you received in the Emergency Department were for an urgent problem and are not intended as complete care. It is important that you follow up with a doctor, nurse practitioner, or physician???s transport assistant for ongoing care. If your symptoms [...] When: Mounika Brooke [address] [place] [address] Business (1) In 3 days 12/22/2024 In the event that this physician does not participate in your insurance network, please consult with your insurance company to find a nearby participating provider. Patient Education Materials: Hyperglycemia A MESSAGE TO ALL PATIENTS REGARDING OPIOIDS PRESCRIPTION OPIOIDS: WHAT YOU NEED TO KNOW Prescription opioids can be used to help relieve axpjcyda-qy-sxomrq pain and are often prescribed following a [...] be struggling with addiction, tell your health caregiver assisted living and ask for guidance o (more content not included)... Normal [facility] Extra Blueon 12-19-2024 Tube Collected Plasma Yes Invalid Interpretation Code [facility] Comment on above: Performed By: #### 1 [id number] #### [facility] [address] [place] [address] Hep Func Panelon 12-19-2024 Albumin [Mass/Vol] 3.4 g/dL Normal 3.3-5.0 [facility] Comment on above: Performed By: #### 2 942763 #### [facility] [address] [place] [address] Albumin/Globulin (S) [Mass conc ratio] 1.1 Normal 1.1-2.2 [facility] Comment on above: Performed By: #### 2 650811 #### [facility] [address] [place] [address] ALP [Catalytic activity/Vol] 208 Int._Unit/L High 21-98 [facility] Comment on above: Performed By: #### 2 828280 #### [facility] [address] [place] [address] ALT No additional P-5'-P [Catalytic activity/Vol] 25 Int._Unit/L Normal 6-46 [facility] Comment on above: Performed By: #### 2 678341 #### [facility] [address] [place] [address] AST [Catalytic activity/Vol] 26 Int._Unit/L Normal 5-43 [facility] Comment on above: Performed By: #### 2 749666 #### [facility] [address] [place] [address] Bilirubin [Mass/Vol] 0.9 mg/dL Normal 0.0-1.1 [facility] Comment on above: Performed By: #### 2 802187 #### [facility] [address] [place] [address] Bilirubin.direct [Mass/Vol] 0.1 mg/dL Normal 0.0-0.4 [facility] Comment on above: Performed By: #### 2 922965 #### [facility] [address] [place] [address] Bilirubin.indirect [Mass or moles/Vol] 0.8 mg/dL Normal 0.1-0.9 [facility] Comment on above: Performed By: #### 2 081019 #### [facility] [address] [place] [address] Globulin (S) [Mass/Vol] 3.1 g/dL Normal 1.4-4.0 [facility] Comment on above: Performed By: #### 2 229046 #### [facility] [address] [place] [address] Protein [Mass/Vol] 6.5 g/dL Normal 6.0-7.8 [facility] Comment on above: Performed By: #### 2 954261 #### [facility] [address] [place] [address] XR Chest Single Viewon 12-19 XR Chest [...] DO Transcribed by: KAT Technologist: ECTOR, Normal [facility] eGFRon 12-19-2024 eGFR 38 mL/min/1.73 m2 Low >=59 [facility] Comment on above: Performed By: #### 1 [id number] #### [facility] [address] [place] [address] ED Note-Physicianon 12-17-19 ED Note-Physician ED Note-Physician [...] day(s), # 20 cap(s), Refills(s) 0, [id number], [facility], cm, 12/02/24 12:47:0 (more content not included)... Normal [facility] Comment on above: Result Comment: Elec tronically Signed By: Paddy Betancourt PA-C\.br\Date and Time Signed: 12/02/24 15:27 EDT\.br\Electronically Co-Signed By: Nicole Myers DO\.samir\Date and Time Co-Signed: 12/16/24 07:10 EDT BMPon 12-02-2024 Anion gap [Moles/Vol] 16 mmol/L Normal 6-16 [facility] Comment on above: Performed By: #### 2 655984 #### [facility] [address] [place] [address] Calcium [Mass/Vol] 9.0 mg/dL Normal 8.9-11.1 [facility] Comment on above: Performed By: #### 2 286579 #### [facility] [address] [place] [address] Chloride [Moles/Vol] 87 mmol/L Low 101-111 [facility] Comment on above: Performed By: #### 2 244264 #### [facility] [address] [place] [address] CO2 [Moles/Vol] 25 mmol/L Normal 21-31 [facility] Comment on above: Performed By: #### 2 311359 #### [facility] [address] [place] [address] Creatinine [Mass/Vol] 1.6 mg/dL High 0.5-1.3 [facility] Comment on above: Performed By: #### 2 593957 #### [facility] [address] [place] [address] Glucose [Mass/Vol] 751 mg/dL Abnormal 55-199 [facility] Comment on above: Result Comment: Crit ical Result Verified by Repeat Analysis Critical Result S_GLU:751 Called to and read back by: TREMAINE LAND at: 12/02/2024 13:48:34 by:WOODY Performed By: #### 2 137308 #### [facility] [address] [place] [address] Potassium [Moles/Vol] 4.4 mmol/L Normal 3.5-5.3 [facility] Comment on above: Performed By: #### 2 888989 #### [facility] [address] [place] [address] Sodium [Moles/Vol] 124 mmol/L Low 135-145 [facility] Comment on above: Performed By: #### 2 835054 #### [facility] [address] [place] [address] Urea nitrogen [Mass/Vol] 40 mg/dL High 5-21 [facility] Comment on above: Performed By: #### 2 556410 #### [facility] [address] [place] [address] Urea nitrogen/Creatinine [Mass ratio] 25 No Units High 10-20 [facility] Comment on above: Performed By: #### 2 607553 #### [facility] [address] [place] [address] CBC w/ Auto Diffon 5 Basophils/100 WBC (Bld) 0.6 % Normal 0.0-2.0 [facility] Comment on above: Performed By: #### 2 851637 #### [facility] [address] [place] [address] Basophils/Leukocytes Auto (Bld) [Pure # fraction] 0.0 E9/L Normal 0.0-0.2 [facility] Comment on above: Performed By: #### 2 346856 #### [facility] [address] [place] [address] Eosinophils (Bld) [#/Vol] 0.2 E9/L Normal 0.0-0.5 [facility] Comment on above: Performed By: #### 2 726099 #### [facility] [address] [place] [address] Eosinophils/100 WBC (Bld) 2.8 % Normal 0.0-8.0 [facility] Comment on above: Performed By: #### 2 481598 #### [facility] [address] [place] [address] Erythrocyte distribution width (RBC) [Ratio] 13.4 % Normal 10.9-14.2 [facility] Comment on above: Performed By: #### 2 770267 #### [facility] [address] [place] [address] Hematocrit (Bld) [Volume fraction] 48.9 % Normal 37.7-49.0 [facility] Comment on above: Performed By: #### 2 503876 #### [facility] [address] [place] [address] Hemoglobin (Bld) [Mass/Vol] 16.6 g/dL Normal 13.5-17.5 [facility] Comment on above: Performed By: #### 2 443325 #### [facility] [address] [place] [address] Lymphocytes (Bld) [#/Vol] 1.2 E9/L Normal 1.0-4.0 [facility] Comment on above: Performed By: #### 2 829159 #### [facility] [address] [place] [address] Lymphocytes/100 WBC (Bld) 20.6 % Normal 14.0-50.0 [facility] Comment on above: Performed By: #### 2 557086 #### [facility] [address] [place] [address] MCH (RBC) [Entitic mass] 31.4 pg Normal 27.0-34.0 [facility] Comment on above: Performed By: #### 2 617111 #### [facility] [address] [place] [address] MCHC (RBC) [Mass/Vol] 33.9 g/dL Normal 31.4-36.0 [facility] Comment on above: Performed By: #### 2 666261 #### [facility] [address] [place] [address] MCV (RBC) [Entitic vol] 92.6 fL Normal 80.0-100.0 [facility] Comment on above: Performed By: #### 2 804080 #### [facility] [address] [place] [address] Monocytes (Bld) [#/Vol] 0.4 E9/L Normal 0.2-1.0 [facility] Comment on above: Performed By: #### 2 777452 #### [facility] [address] [place] [address] Neutrophils (Bld) [#/Vol] 4.1 E9/L Normal 2.0-7.5 [facility] Comment on above: Performed By: #### 2 183902 #### [facility] [address] [place] [address] Neutrophils/100 WBC (Bld) 69.1 % Normal 36.0-75.0 [facility] Comment on above: Performed By: #### 2 228426 #### [facility] [address] [place] [address] Platelet mean volume (Bld) [Entitic vol] 7.5 fL Normal 6.4-10.8 [facility] Comment on above: Performed By: #### 2 465416 #### [facility] [address] [place] [address] Platelets (Bld) [#/Vol] 268.0 E9/L Normal 150.0-500.0 [facility] Comment on above: Performed By: #### 2 698152 #### [facility] [address] [place] [address] RBC (Bld) [#/Vol] 5.3 E12/L Normal 4.3-5.9 [facility] Comment on above: Performed By: #### 2 331821 #### [facility] [address] [place] [address] WBC corrected for nucl RBC Auto (Bld) [#/Vol] 6.0 E9/L Normal 4.0-11.0 [facility] Comment on above: Performed By: #### 2 930661 #### [facility] [address] [place] [address] CHEMISTRYOrdered By: SYSTEM SYSTEM on 12-02-2024 Anion [...] 2024 ED Clinical Summary ED Clinical Summary [place] [id number] ED Clinical Summary Person Information Name: NICOLE LORA/[facility] Age: 64 Years : 1960 Sex: Male Language: Montserratian PCP: Mounika Brooke MD Marital Status: Phone: [phone] Visit Id: Visit Reason: Nausea; Dehydration; PT [...] 12/02/2024 15:24:12 12/02/2024 15:24:12 12/02/2024 15:24:12 ADDRESS: [address] [place] [id number] PHYS DOC NOTES: MEDICAL INFORMATION: Prescriptions Given: New Medications [id number], [address] [place] [id number], [phone] cefdinir (cefdinir 300 mg Cap) 1 Capsules By Mouth every 12 hours for 10 Days. Refills: 0. Medications to Continue Taking That Have Changed [facility] #[id number], [address] [place] [id number], [phone] START: doxycycline (doxycycline hyclate 100 mg Cap) [...] (Freestyle Li (more content not included)... Normal [facility] ED Note-Nursingon 12-02-2024 ED Note-Nursing ED Note-Nursing pt. leaves AMA at this time. paper signed. Normal [facility] ED Patient Summaryon 025 ED Patient Summary ED Patient Summary [place] [id number] Patient Discharge Instructions Person Information Name: NICOLE LORA Age: 64 Years Arrival Date: 12/02/2024 12:35:03 Discharge Diagnosis: Bronchitis; Hyperglycemia; Left against medical advice Primary Care Physician: Mounika Brooke MD Provider Information Primary Provider: Nicole Myers DO Advanced Problem Manager:Paddy Betancourt PA-C The exam and treatment you received in the Emergency Department were for an urgent problem and are not intended as complete care. It is important that you follow up with a doctor, nurse practitioner, or physician???s transport assistant for ongoing care. If your symptoms [...] Address: When: [place] [place] [address] Business (1) In 3 days 12/05/2024 Comments: Call Dr for diagnosis based follow up In the event that this physician does not participate in your insurance network, please consult with your insurance company to find a nearby participating provider. Patient Education Materials: Acute Bronchitis, Adult; Type 2 Diabetes Mellitus, Self-Care, Adult, Dlki-dn-Uvev; Hyperglycemia A MESSAGE TO ALL PATIENTS REGARDING OPIOIDS PRESCRIPTION OPIOIDS: WHAT YOU NEED TO KNOW Prescription opioids can be used to help relieve mdzhkozy-da-lunubh pain and are often prescribed following a [...] to cj (more content not included)... Normal [facility] Extra Blueon 12-02-2024 Tube Collected Plasma Yes Invalid Interpretation Code [facility] Comment on above: Performed By: #### 1 [id number] #### [facility] [address] [place] [address] HEMATOLOGYOrdered By: SYSTEM SYSTEM on 12-02-2024 Basophils/100 [...] DO Transcribed by: KAT Technologist: PORSHA Normal [facility] eGFRon 12-02-2024 eGFR 47 mL/min/1.73 m2 Low >=59 [facility] Comment on above: Performed By: #### 1 [id number] #### [facility] [address] [place] [address] Glucose (Bld) [Mass/Vol]on 0 09-04-2024 Glucose Blood, POC 406 mg/dL [facility] - Hematology and Cell countson 09-04-2024 HbA1c (Bld) [Mass fraction] 12.9 % [facility] No Panel Informationon 09-04 [facility] Left eye Ophthalmologic jemma tmenton 07-22-2024 [facility] Radiology Study observation (narrative) [facility] Optical coherence tomography study reporton 07-22-2024 [facility] Left Eye Quality was good. Scan locations included subfoveal, juxtafoveal, extrafoveal, temporal. Progression has been stable. Notes Proliferative diabetic retinopathy of left eye [facility] Radiology Study observation (narrative) [facility] Glucose (Bld) [Mass/Vol]Orde red By: Amanda Cesar on 07-15-2024 Glucose Blood, POC 243 mg/dL [facility] ED Clinical Summaryon 2023 ED Clinical Summary ED Clinical Summary [place] [address] ED Clinical Summary Person Information Name: NICOLE LORA/[facility] Age: 64 Years : 1960 Sex: Male Language: Montserratian PCP: Mounika Brooke MD Marital Status: Phone: [phone] Visit Id: Visit Reason: Arm pain-swelling; RIGHT [...] 16:21:24 07/09/2024 16:21:24 07/09/2024 16:21:24 ADDRESS: [address] [phone] [facility] DOC NOTES: MEDICAL INFORMATION: Prescriptions Given: New Medications [id number], [address] [place], [place] [phone], [phone] acetaminophen-oxycodo ne (Percocet 5 mg-325 mg oral [...] Refills: 4. Misc Prescription (Freeyle Sage 2 [place]) Use daily with sensor. Refills: 0. Misc Prescription (Freestyle Sage 2 Sensors) Apply one q 14 days. Refills: 3. Misc Prescription (Glucometer test strips) Test TID DX E11.40 on insulin. Refills: 11. Misc Prescription (Glucometer) Dispense 1 Glucometer. Refills: 0. Misc Prescription (Insulin Pen Acton 31g x 8 mm) Use up to [...] hours a (more content not included)... Normal [facility] ED Note-Physicianon 07-09-20 ED Note-Physician ED [...] for 3 day(s), 10 tab(s), Refill(s) 0, [facility] #[id number], 183, cm, 07/09/24 14:44:00 EST, Height/Length Dosing, [...] 3 days 07/12/2024 EST [address] [place] [address]- Business (1) Additional Instructions: Patient Education Tendinitis [...] made to ensure accuracy, however, inadvertently computerized lens blocker mistakes may be present. Appropriate healthcare PPE [...] disorder, severe (more content not included)... Normal [facility] Comment on above: Result Comment: Elec tronically Signed By: Jesus Grijalva PA-C\.br\Date and Time Signed: 07/09/24 16:16 EST\.br\Electronically Co-Signed By: Nicole Myers DO\.br\Date and Time Co-Signed: 07/09/24 18:49 EST ED Patient Summaryon 024 ED Patient Summary ED Patient Summary [place] [id number] Patient Discharge Instructions Person Information Name: NICOLE LORA Age: 64 Years Arrival Date: 07/09/2024 14:35:34 Discharge Diagnosis: Left shoulder pain; Tendinitis Primary Care Physician: Mounika Brooke MD Provider Information Primary Provider: Nicole Myers DO Advanced Problem Manager:Jesus Grijalva PA-C The exam and treatment you received in the Emergency Department were for an urgent problem and are not intended as complete care. It is important that you follow up with a doctor, nurse practitioner, or physician???s transport assistant for ongoing care. If your symptoms become worse or you do not improve as expected and you are unable to reach your usual health care provider, you should return to the Emergency Department. We are available 24 hours a day. NICOLE LROA has been given the following list of patient education materials, prescriptions and follow-up instructions: Follow-up Instructions: With: Address: When: [address] [place] [address] Business (1) In 3 days 07/12/2024 In the event that this physician does not participate in your insurance network, please consult with your insurance company to find a nearby participating provider. Patient Education Materials: Tendinitis A MESSAGE TO ALL PATIENTS REGARDING OPIOIDS PRESCRIPTION OPIOIDS: WHAT YOU NEED TO KNOW Prescription opioids can be used to help relieve eqlelvwf-fd-ukrnuw pain and are often prescribed following a [...] be struggling with addiction, tell your health caregiver assisted living and ask for ernst (more content not included)... Normal [facility] XR Shoulder Complete Righton 07-09-2024 XR [...] mGy = na DAP = na Normal [facility] ED Clinical Summaryon 2023 ED Clinical Summary ED Clinical Summary [place] [address] ED Clinical Summary Person Information Name: NICOLE LORA/[facility] Age: 64 Years : 1960 Sex: Male Language: Montserratian PCP: Mounika Brooke MD Marital Status: Phone: [phone] Visit Id: Visit Reason: Rib/trunk pain-swelling; RIB [...] 06/23/2024 14:01:17 06/23/2024 14:01:17 06/23/2024 14:01:17 ADDRESS: [address] [place] [phone] PHYS DOC NOTES: MEDICAL INFORMATION: Prescriptions Given: New Medications [id number], [address] [place] [phone], [phone] acetaminophen-oxycodo ne (acetaminophen-oxycod one 325 mg-5 mg Tab) 1 Tablets By Mouth every 6 hours as needed for pain for 3 Days. Refills: 0. Medications to Continue Taking That Have Changed [facility] #[id number], [address] [place], [place] [phone], [phone] START: doxycycline (doxycycline hyclate 100 mg Cap) [...] Refills: 4. Misc Prescription (Freestyle Sage 2 [place]) Use daily with sensor. Refills: 0. Misc Prescription (Freestyle Sage 2 Sensors) Apply one q 14 days. Refills: 3. Misc Prescription (Glucometer test strips) Test TID DX E11.40 on insulin. Refills: 11. Misc Prescription (Glucometer) Dispense 1 Glucometer. Refills: 0. Misc Prescription (Insulin Pen [place]on 31g x 8 mm) Use up to [...] INFORMATION: Inst (more content not included)... Normal [facility] ED Note-Physicianon 06-23-20 ED Note-Physician ED [...] Number and Complexity of Problems Differential Diagnosis: [facility] Data External documents reviewed: [] My [...] for 3 day(s), 12 tab(s), Refill(s) 0, [facility] #[id number], 183, cm, 06/23/24 13:45:00 EST, Height/Length Dosing, 143, kg, 06/23/24 13:45:00 EST, Weight Dosing doxycycline, 100 mg = 1 cap(s), Oral, BID, # 20 cap(s), Refills(s) 0, Pharmacy: [facility] #[id number], 183, cm, 06/23/24 13:45:00 EST, Height/Length Dosing, [...] days 06/26/[address] [place] [address]- Business (1) Additional Instructions: Call Dr for diagnosis based follow up Patient Education Community-Acquired Pneumonia, Adult, Uvel-zj-Jfzl Rib Contusion Attestation Patient seen and evaluated by the physician transport assistant. Attending physician was present in the emergency department and supervised care. This visit was performed by both the physician and an APC. I performed all aspects of the MDM as documented. This report was transcribed using voice recognition software. Every effort was made to ensure accuracy, however, inadvertently computerized lens blocker mistakes may be present. Appropriate healthcare PPE was used in evaluating this patient. The patient was placed in a mask. The healthcare provider was wearing mask, gloves, and utilizing proper hand hygiene. All equipment was properly cleansed. I performed a substantive part of the MDM during (more content not included)... Normal [facility] Comment on above: Result Comment: Elec tronically Signed By: Greyson ENGLE, Paddy José\.br\Date and Time Signed: 06/23/24 14:07 EST\.br\Electronically Co-Signed By: Alejandro Silva M.D.\.br\Date and Time Co-Signed: 06/23/24 14:26 EST ED Patient Summaryon 024 ED Patient Summary ED Patient Summary [address] [address] Patient Discharge Instructions Person Information Name: NICOLE LORA Age: 64 Years Arrival Date: 06/23/2024 13:36:38 Discharge Diagnosis: Contusion of rib on left side; Pneumonia Primary Care Physician: Mounika Brooke MD Provider Information Primary Provider: Alejandro Silva M.D. Advanced Problem Manager:None The exam and treatment you received in the Emergency Department were for an urgent problem and are not intended as complete care. It is important that you follow up with a doctor, nurse practitioner, or physician???s transport assistant for ongoing care. If your symptoms [...] With: Address: When: Mounika Bro[address] [facility] [place] [address] Business (1) In 3 days 06/26/2024 Comments: Call Dr for diagnosis based follow up In the event that this physician does not participate in your insurance network, please consult with your insurance company to find a nearby participating provider. Patient Education Materials: Community-Acquired Pneumonia, Adult, Rkbr-mr-Kfah; Rib Contusion A MESSAGE TO ALL PATIENTS REGARDING OPIOIDS PRESCRIPTION OPIOIDS: WHAT YOU NEED TO KNOW Prescription opioids can be used to help relieve vrelceeu-op-drztpi pain and are often prescribed following a [...] ??? If (more content not included)... Normal [facility] HEMOGLOBIN A1con 06-22-2024 HbA1c (Bld) [Mass fraction] % High <5.7 [employer] Comment on above: Order Comment: FASTI NG:UNKNOWN [...] children. Performed By: #### 4 96 #### [employer] [address], [address] [place], [place] [phone] Roofing Technician: Anson Henley MD HbA1c (Bld) [Mass fraction]o n 06-22-2024 Interpretation and review of laboratory results Abnormal [facility] FASTING:UNKNOWN FASTING: UNKNOWN [facility] Organization Information Site ID: QPT Name: [employer] [facility] Address: [address] [place] [address], [address] [place], [place] [phone] Director: Anson Henley MD [facility] - Hematology and Cell countson 06-22-2024 HbA1c (Bld) [Mass fraction] High [facility] [place] Comment on above: For someone without known [...] mGy = na DAP = na Normal [facility] Left eye [facility]hthalm[facility] 05-[facility]-2024 [facility] Radiology Study observation (narrative) [facility] Optical coherence tomography study reporton 05-22-2024 [facility] Right Eye Quality was good. Left Eye Quality was good. Scan locations included subfoveal, juxtafoveal, extrafoveal. Progression has been stable. Findings include abnormal foveal contour, cystoid macular edema. Notes Neovascularization of the disc (NVD) OS [facility] Radiology Study observation (narrative) [facility] Left eye Ophthalmologic [facility] 04-23-2024 [facility] Radiology Study observation (narrative) [facility] Optical coherence tomography study reporton 04-15-2024 Right Eye Quality was good. Scan locations included subfoveal, juxtafoveal, extrafoveal. Progression has no prior data. Findings include abnormal foveal contour. Left Eye Quality was good. Scan locations included subfoveal, juxtafoveal, extrafoveal. Progression has no prior data. Findings include abnormal foveal contour, cystoid macular edema. Notes Pdr os Mod bgdr od [facility] Radiology Study observation (narrative) [facility] BMPon 03-11-2024 Anion gap [Moles/Vol] 13 mmol/L Normal 6-16 [facility] Comment on above: Performed By: #### 2 [id number] #### [facility] [address] [place] [address] Calcium [Mass/Vol] 8.6 mg/dL Low 8.9-11.1 [facility] Comment on above: Performed By: #### 2 [id number] #### [facility] [address] [place] [address] Chloride [Moles/Vol] 100 mmol/L Low 101-111 [facility] Comment on above: Performed By: #### 2 [id number] #### [facility] [address] [place] [address] CO2 [Moles/Vol] 26 mmol/L Normal 21-31 [facility] Comment on above: Performed By: #### 2 225408 #### [facility] [address] [place] [address] Creatinine [Mass/Vol] 1.5 mg/dL High 0.5-1.3 [facility] Comment on above: Performed By: #### 2 [id number] #### [facility] [address] [place] [address] Glucose [Mass/Vol] 330 mg/dL High 55-199 [facility] Comment on above: Performed By: #### 2 060261 #### [facility] [address] [place] [address] Potassium [Moles/Vol] 4.8 mmol/L Normal 3.5-5.3 [facility] Comment on above: Performed By: #### 2 770509 #### [facility] [address] [place] [address] Sodium [Moles/Vol] 134 mmol/L Low 135-145 [facility] Comment on above: Performed By: #### 2 407312 #### [facility] [address] [place] [address] Urea nitrogen [Mass/Vol] 29 mg/dL High 5-21 [facility] Comment on above: Performed By: #### 2 192077 #### [facility] [address] [place] [address] Urea nitrogen/Creatinine [Mass ratio] 19 No Units Normal 10- [facility] Comment on above: Performed By: #### 2 708209 #### [facility] [address] [place] [address] CHEMISTRYOrdered By: SYSTEM SYSTEM on 03-11-2024 Anion [...] 03-11-2024 eGFR 51 mL/min/1.73 m2 Low >=59 [facility] Comment on above: Order Comment: Order added by Discern Expert. Performed By: #### 1 [id number] #### [facility] [address] [place] [address] Ambulatory Visit Summaryon 0 02-28-2024 Ambulatory Visit Summary Normal [facility] Patient Educationon 02-28-20 24 Patient Education Normal [facility] Urology Office/Clinic Noteon 02-28-2024 Urology Office/Clinic Note Normal [facility] Comment on above: Result Comment: Elec tronically Signed By: Taz THOMAS MD\.br\Date and Time Signed: 02/28/24 08:10 EDT\.br\Electronically Co-Signed By: Basia Claire\.br\Date and Time Co-Signed: 02/28/24 08:05 EDT Ambulatory Visit Summaryon 0 02-15-2024 Ambulatory Visit Summary Normal [facility] Patient Educationon 02-11-20 Patient Education Normal [facility] Urology Office/Clinic Noteon 02-11-2024 Urology Office/Clinic Note Normal [facility] Comment on above: Result Comment: Elec tronically Signed By: BRYAN Bahena APRN, [place] X\.br\Date and Time Signed: 02/11/24 23:10 EDT Ambulatory Visit Summaryon 0 02-09-2024 Ambulatory Visit Summary Normal [address] [place] [address]- \.br\ Monday 10:45 AM EDT \.br\ With: Juany DPM, Sukh R\.br\ Where: [facility]\.br\ Medications\.br\ What How Much When Why Instructions\.br\ Unchanged acetaminophen-hyd rocodone ([place] 325 mg-5 mg oral tablet) See instructions [...] day\.br\ Unchanged Misc Prescription (Freestyle Sage 2 [place]) See instructions Use daily with sensor \.br\ Unchanged Misc Prescription (Freestyle Sage 2 Sensors) See instructions Apply one q 14 days \.br\ Unchanged Misc Prescription (Glucometer test strips) See instructions Test TID DX E11.40 on insulin \.br\ Unchanged Misc Prescription (Glucometer) See instructions Diabetes mellitus with neuropathy Dispense 1 Glucometer \.br\ Unchanged Misc Prescription (Insulin Pen [place]on 31g x 8 mm) See instructions Use [...] for choosing us for your care.\.br\ \.br\ [facility] Consent for Procedure/Surger yon 02-05-2024 Consent for Procedure/Surgery [id number]#1 .00TIFF Normal [facility] Consent for Treatmenton 01-19 Consent for Treatment [id number]#1 .00TIFF Normal [facility] Inpatient Patient Summaryon 02-05-2024 Inpatient Patient Summary Normal [facility] IntraOperative Documentson 0 02-05-2024 IntraOperative Documents [id number]#1 .00TIFF Normal [facility] Main OR Intraoperative Recor don 02-05-2024 Main OR Intraoperative Record Normal [facility] Main OR Preoperative Recordo n 02-05-2024 Main OR Preoperative Record Normal [facility] Operative Reporton Operative Report Normal [facility] Comment on above: Result Comment: Elec tronically Signed By: MARTHA LYMAN, Taz Abraham\.br\Date and Time Signed: 02/05/24 13:27 EDT Outpatient Surgery Discharge Instructionon 02-05-2024 Outpatient Surgery Discharge Instruction [id number]#1 .00TIFF Normal [facility] Outpatient Surgery Discharge Instruction Normal [facility] Patient Educationon 02-05-20 Patient Education Normal [facility] Insurance Correspondenceon 0 02-01-2024 Insurance Correspondence [id number]# 1.00TIFF [facility] Multi-Wound Charton 02-01-20 Multi-Wound Chart [id number]# 1.00TIFF [facility] Nursing Note - Woundon 01-31 Nursing Note - Wound 159.140.124. [id number]# 1.00TIFF [facility] Consent for Treatmenton 01-19 Consent for Treatment [id number]#1 .00TIFF [facility] Nursing Assessment - Woundon 01-31-2024 Nursing Assessment - Wound [id number]# 1.00TIFF [facility] Physician Orderon 01-31-2024 Physician Order [id number]. [id number]# 1.00TIFF [facility] Prescriptions/Work Noteson 0 01-31-2024 Prescriptions/Work Notes [id number]# 1.00TIFF [facility] Procedure - Woundon 01-31-20 Procedure - Wound 159.140.124. 6 [id number]# 1.00TIFF [facility] Progress Note - Woundon 01-19 Progress Note - Wound 159.140.124. [id number]# 1.00TIFF [facility] Insurance Correspondenceon 0 01-26-2024 Insurance Correspondence [id number]#1 .00TIFF [facility] Nursing Note - Woundon 01-23 Nursing Note - Wound 159.140.124. 06 [id number]# 1.00TIFF [facility] Physician Orderon 01-24-2024 Physician Order [id number]. [id number]# 1.00TIFF [facility] Procedure - Woundon 01-24-20 24 Procedure - Wound 159.140.124. 6 [id number]# 1.00TIFF [facility] Progress Note - Woundon Progress Note - Wound [id number]# 1.00TIFF [facility] Consent for Procedure/Surger yon 01-23-2024 Consent for Procedure/Surgery [id number]# 1.00TIFF [facility] Consent for Procedure/Surgery [id number]# 1.00TIFF [facility] Consent for Treatmenton Consent for Treatment [id number]#1 .00TIFF [facility] Multi-Wound Charton 01-23-20 Multi-Wound Chart [id number] 6 [id number]# 1.00TIFF [facility] Nursing Assessment - Woundon 01-23-2024 Nursing Assessment - Wound [id number]# 1.00TIFF [facility] ED Note-Physicianon 01-16-20 ED Note-Physician [facility] Comment on above: Result Comment: Elec tronically Signed By: Kaley Phan PA-C\.br\Date and Time Signed: 01/15/24 17:05 EDT\.br\Electronically Co-Signed By: Nicole Myers DO\.br\Date and Time Co-Signed: 01/16/24 09:03 EDT Consent for Treatmenton 12-20 Consent for Treatment [id number]#1 .00TIFF [facility] Discharge Instructionson Discharge Instructions [id number]#1 .00TIFF [facility] ED Clinical Summaryon 2023 ED Clinical Summary [facility] Patient Education Noteon 01-15-2024 ED Patient Education Note [facility] ED Patient Summaryon 024 ED Patient Summary [facility] Ambulatory Visit Summaryon 01-12-2024 Ambulatory Visit Summary [facility] Consent for Procedure/Surger yon 01-02-2024 Consent for Procedure/Surgery [id number]# 1.00TIFF [facility] Consent for Treatmenton 12-19 Consent for Treatment [id number]#1 .00TIFF [facility] Multi-Wound Charton 01-02-20 Multi-Wound Chart [id number] 5 [id number]# 1.00TIFF [facility] Nursing Assessment - Woundon 01-02-2024 Nursing Assessment - Wound 159.140.124.25. [id number]# 1.00TIFF [facility] Nursing Note - Woundon 01-01 Nursing Note - Wound [id number] 05 [id number]# 1.00TIFF [facility] Physician Orderon 01-02-2024 Physician Order [id number] 5 [id number]# 1.00TIFF [facility] Procedure - Woundon 01-02-20 Procedure - Wound [id number] 5 [id number]# 1.00TIFF [facility] Progress Note - Woundon 12-19 Progress Note - Wound [id number]# 1.00TIFF [facility] Consent for Procedure/Surger yon 12-26-2023 Consent for Procedure/Surgery [id number]#1 .00TIFF [facility] Consent for Procedure/Surgery [id number]#1 .00TIFF [facility] Consent for Treatmenton Consent for Treatment [id number]#1 .00TIFF [facility] Multi-Wound Charton 12-26-19 Multi-Wound Chart 159.140.124.25. 5 [id number]# 1.00TIFF [facility] Nursing Assessment - Woundon 12-26-2023 Nursing Assessment - Wound 159.140.124. [id number]# 1.00TIFF [facility] Nursing Note - Woundon 12-25 Nursing Note - Wound 159.140.124. 05 [id number]# 1.00TIFF [facility] Physician Orderon 12-26-2023 Physician Order 159.140.124. 5 [id number]# 1.00TIFF [facility] Procedure - Woundon 12-26-19 24 Procedure - Wound 159.140.124. 5 [id number]# 1.00TIFF [facility] Progress Note - Woundon Progress Note - Wound 159.140.124.25. [id number]# 1.00TIFF [facility] Nursing Note - Woundon 12-19 Nursing Note - Wound 159.140.124. 05 [id number]# 1.00TIFF [facility] Physician Orderon 12-20-2023 Physician Order 159.140.124.. 5 [id number]# 1.00TIFF [facility] Procedure - Woundon 12-20-19 Procedure - Wound 159.140.124.25 5 [id number]# 1.00TIFF [facility] Progress Note - Woundon Progress Note - Wound 159.140.124. [id number]# 1.00TIFF [facility] Consent for Procedure/Surger yon 12-19-2023 Consent for Procedure/Surgery [id number]# 1.00TIFF [facility] Consent for Treatmenton 11-21 Consent for Treatment [id number]#1 .00TIFF [facility] Multi-Wound Charton 12-19-19 Multi-Wound Chart [id number] 4 [id number]# 1.00TIFF [facility] Nursing Assessment - Woundon 12-19-2023 Nursing Assessment - Wound [id number] [id number]# 1.00TIFF [facility] Ambulatory Visit Summaryon 12-15-2023 Ambulatory Visit Summary [facility] Consent for Procedure/Surger yon 12-12-2023 Consent for Procedure/Surgery [id number]# 1.00TIFF [facility] Consent for Treatmenton 11-20 Consent for Treatment [id number]#1 .00TIFF [facility] Multi-Wound Charton 12-12-19 Multi-Wound Chart [id number] 4 [id number]# 1.00TIFF [facility] Nursing Assessment - Woundon 12-12-2023 Nursing Assessment - Wound 170.71.121.117. [id number]# 1.00TIFF [facility] Nursing Note - Woundon 12-11 Nursing Note - Wound [id number] 04 [id number]# 1.00TIFF [facility] Physician Orderon 12-12-2023 Physician Order 170.71.121.117. 4 [id number]# 1.00TIFF [facility] Procedure - Woundon 12-12-19 Procedure - Wound 170.71.121.117. 4 [id number]# 1.00TIFF Normal [facility] Progress Note - Woundon -2 Progress Note - Wound [id number]# 1.00TIFF Normal [facility] Consenton 11-22-2023 Consent [id number] 0 [id number]#1. 00TIFF Normal [facility] Consent for Procedure/Surger yon 11-20-2023 Consent for Procedure/Surgery [id number]#1 .00TIFF Normal [facility] Consent for Treatmenton Consent for Treatment [id number]#1 .00TIFF [facility] IntraOperative Documentson 0 11-20-2023 IntraOperative Documents [id number]#1 .00TIFF [facility] IntraOperative Documents [id number]#1 .00TIFF [facility] Main OR Intraoperative Recor don 11-20-2023 Main OR Intraoperative Record Normal [facility] Main OR Preoperative Recordo n 11-20-2023 Main OR Preoperative Record Normal [facility] Operative Reporton 4 Operative Report Normal [facility] Comment on above: Result Comment: Elec tronically Signed By: Taz THOMAS MD\.br\Date and Time Signed: 11/20/23 13:26 EDT Progress Note-Physicianon Progress Note-Physician Normal [facility] Comment on above: Result Comment: Elec tronically Signed By: Taz THOMAS MD\.br\Date and Time Signed: 11/20/23 13:30 EDT C Blood Charcoalon 4 Blood Culture Charcoal [facility] Comment on above: Performed By: #### 1 [id number] ####[address] [place] [address] Blood Culture Charcoal Normal [facility] Comment on above: Performed By: #### 1 [id number] ####[facility] [address] [place] [address] Basophils Auto (Bld) [#/Vol] Ordered By: Manish Fu on 11-17-2023 Basophils (Bld) [#/Vol] 0.0 10*3/uL 0.0-0.2 [place] Basophils/100 WBC Auto (Bld) Ordered By: Manish Fu on 11-17-2023 Basophils/100 WBC (Bld) 0.7 % . [place] Calcium [Mass/volume] in Ser um or PlasmaOrdered By: Manish Fu on 11-17-2023 Calcium [Mass/Vol] 9.3 mg/dL 8.6-10.3 [facility] Carbon dioxide, total [Moles /volume] in Serum or PlasmaOrdered By: Manish Fu on 11-17-2023 CO2 [Moles/Vol] 41.4 mmol/L 21.0-31.0 [facility] Chloride [Moles/volume] in S raymond or PlasmaOrdered By: Manishnatanael Chasesevero on 11-17-2023 Chloride [Moles/Vol] 102 mmol/L 98-107 [facility] Creatinine [Mass/volume] in Serum or PlasmaOrdered By: Manishmiguel Fu on 11-17-2023 Creatinine [Mass/Vol] 1.47 mg/dL 0.70-1.30 [place] Eosinophils Auto (Bld) [#/Vo l]Ordered By: Manish Fu on 11-17-2023 Eosinophils (Bld) [#/Vol] 0.3 10*3/uL 0.0-0.45 [place] Eosinophils/100 WBC Auto (Bl d)Ordered By: Manish Fu on 11-17-2023 Eosinophils/100 WBC (Bld) 5.6 % . [place] Erythrocyte distribution wid th Auto (RBC) [Ratio]Ordered By: Manish Fu on 11-17-2023 Erythrocyte distribution width (RBC) [Ratio] 18.4 % 12.0-14.8 [place] Glucose Glucometer (BldC) [M ass/Vol]Ordered By: Manish Fu on 11-17-2023 Glucose [Mass/Vol] 165 mg/dL [facility] Comment on above: Random Glucose Refer ence Range is dependent on time and content of last meal. Glucose of more than 200 mg/dL in a nonstressed, ambulatory subject supports the diagnosis of Diabetes Mellitus. Glucose [Mass/volume] in Ser um or PlasmaOrdered By: Manish Fu on 11-17-2023 Glucose [Mass/Vol] 114 mg/dL 70-100 [facility] Comment on above: ADA recommended refe rence rangeRandom Glucose Reference Range is dependent on time and content of last meal. Glucose of more than 200 mg/dL in a nonstressed, ambulatory subject supports the diagnosis of Diabetes Mellitus. Hematocrit Auto (Bld) [Volum e fraction]Ordered By: Manish Fu on 11-17-2023 Hematocrit (Bld) [Volume fraction] 39.5 % 38.8-50.0 [place] Hemoglobin [Mass/volume] in BloodOrdered By: Manish Fu on 11-17-2023 Hemoglobin (Bld) [Mass/Vol] 12.3 g/dL 13.0-17.0 [place] Leukocytes [#/volume] correc maria guadalupe for nucleated erythrocytes in Blood by Automated counOrdered By: Manish Fu on 11-17-2023 WBC corrected for nucl RBC Auto (Bld) [#/Vol] 6.0 10*3/uL 4.1-10.5 [place] Lymphocytes Auto (Bld) [#/Vo l]Ordered By: Manish Fu on 11-17-2023 Lymphocytes (Bld) [#/Vol] 1.3 10*3/uL 1.00-4.8 [place] Lymphocytes/100 WBC Auto (Bl d)Ordered By: Manish Fu on 11-17-2023 Lymphocytes/100 WBC (Bld) 21.7 % . [place] MCH Auto (RBC) [Entitic mass ]Ordered By: Manish Fu on 11-17-2023 MCH (RBC) [Entitic mass] 26.0 pg 27.5-35.2 [place] MCHC Auto (RBC) [Mass/Vol]Or dered By: Manish Fu on 11-17-2023 MCHC (RBC) [Mass/Vol] 31.2 g/dL 32.5-35.6 [place] MCV Auto (RBC) [Entitic vol] Ordered By: Manish Fu on 11-17-2023 MCV (RBC) [Entitic vol] 83.4 fL 83.5-101 [place] Monocytes Auto (Bld) [#/Vol] Ordered By: Manish Fu on 11-17-2023 Monocytes (Bld) [#/Vol] 0.6 10*3/uL 0.0-0.8 [place] Monocytes/100 WBC Auto (Bld) Ordered By: Manish Fu on 11-17-2023 Monocytes/100 WBC (Bld) 10.4 % . [place] Neutrophils Auto (Bld) [#/Vo l]Ordered By: Manish Fu on 11-17-2023 Neutrophils (Bld) [#/Vol] 3.7 10*3/uL 1.8-7.7 [place] Neutrophils/100 WBC Auto (Bl d)Ordered By: Manish Fu on 11-17-2023 Neutrophils/100 WBC (Bld) 61.6 % . [place] No Panel InformationOrdered By: Manish Fu on 11-17-2023 Estimated GFR (CKD-EPI) 52.934 mL/Min [facility] Creatinine Clearance (Chem 70.70 [place] Nucleated erythrocytes [Pres ence] in Blood by Automated countOrdered By: Manish Fu on 11-17-2023 Nucleated RBC Auto Ql (Bld) 0.1 /100{WBC} 0-0.5 [place] Platelet mean volume Auto (B ld) [Entitic vol]Ordered By: Manish Fu on 11-17-2023 Platelet mean volume (Bld) [Entitic vol] 6.8 fL 6.6-10.1 [place] Platelets Auto (Bld) [#/Vol] Ordered By: Manish Fu on 11-17-2023 Platelets (Bld) [#/Vol] 248 10*3/uL 150-450 [place] Potassium [Moles/volume] in Serum or PlasmaOrdered By: Manish Fu on 11-17-2023 Potassium [Moles/Vol] 4.5 mmol/L 3.5-5.1 [place] RBC Auto (Bld) [#/Vol]Ordere d By: Manish Fu on 11-17-2023 RBC (Bld) [#/Vol] 4.73 10*6/uL 3.90-5.60 [facility] Serum or plasma anion gap de terminationOrdered By: Manish Fu on 11-17-2023 Anion gap [Moles/Vol] 10.1 mmol/L 6.0-15.0 [place] Sodium [Moles/volume] in Ser um or PlasmaOrdered By: Manish Fu on 11-17-2023 Sodium [Moles/Vol] 149 mmol/L 136-145 [facility] Urea nitrogen [Mass/volume] in Serum or PlasmaOrdered By: Manish Fu on 11-17-2023 Urea nitrogen [Mass/Vol] 44 mg/dL 7-25 [place] WBC Auto (Bld) [#/Vol]Ordere d By: Manish Fu on 11-17-2023 WBC (Bld) [#/Vol] 6.0 10*3/uL 4.1-10.5 [facility] Admission Noteon 11-16-2023 Admission Note [id number] .00TIFF Normal [facility] No Panel InformationOrdered By: Manish Fu on 11-16-2023 Bedside Glucose Comment Glu2: cleaned meter [place] Admission Noteon 11-15-2023 Admission Note [id number] .00TIFF Normal Lang [facility] Laboratory - Chemistry and C hemistry - challengeOrdered By: Manish Fu on 11-15-2023 CO2 [Moles/Vol] 34.8 mmol/L 23.0-27.0 [facility] HCO3 (Bld) [Moles/Vol] 32.6 mmol/L 23.0-29.0 [place] Magnesium [Mass/volume] in S raymond or PlasmaOrdered By: Manish Fu on 11-15-2023 Magnesium [Mass/Vol] 2.3 mg/dL 1.9-2.7 [facility] No Panel InformationOrdered By: Manish Fu on 11-15-2023 Arterial Blood Base Excess 3.8 mmol/L -3.0-3.0 [place] Arterial Blood Oxygen Content 8.0 mmol/L 6.6-9.7 [place] Arterial Blood Oxygen Saturation 94.1 % 95.0-100.0 [place] Arterial Blood Partial Pressure CO2 70.1 mm[Hg] 35.0-45.0 [place] Arterial Blood Partial Pressure O2 73.0 mm[Hg] 80.0-100.0 [place] Arterial Blood pH 7.29 7.35-7.45 [facility] Blood Gas Critical Value See comment [place] Comment on above: Critical Value dickerson d on: 11/15/2023 at 12:53 Blood Gas Sample Site Right radial [place] FiO2 44 % [place] Oxygen Delivery Device Nasal cannula [place] Alanine aminotransferase [En zymatic activity/volume] in Serum or PlasmaOrdered By: Manish Fu on 11-14-2023 ALT [Catalytic activity/Vol] 14 U/L 7-52 [place] Albumin [Mass/volume] in Ser um or Plasma by Bromocresol green (BCG) dye binding methoOrdered By: Manish Fu on 11-14-2023 Albumin BCG dye [Mass/Vol] 3.2 g/dL 3.5-5.7 [place] Alkaline phosphatase [Enzyma tic activity/volume] in Serum or PlasmaOrdered By: Manish Fu on 11-14-2023 ALP [Catalytic activity/Vol] 92 U/L 34-104 [place] Aspartate aminotransferase [ Enzymatic activity/volume] in Serum or PlasmaOrdered By: Manish [facility] on 11-14-2023 AST [Catalytic activity/Vol] 10 U/L 13-39 [place] Bilirubin.total [Mass/volume ] in Serum or PlasmaOrdered By: Manish [facility] on 11-14-2023 Bilirubin [Mass/Vol] 0.6 mg/dL 0.3-1.0 [facility] Globulin Calc (S) [Mass/Vol] Ordered By: [facility] on 11-14-2023 Globulin (S) [Mass/Vol] 2.8 g/dL [place] Protein [Mass/volume] in Ser um or PlasmaOrdered By: [facility] on 11-14-2023 Protein [Mass/Vol] 6.0 g/dL 6.4-8.9 [facility] Serum or plasma albumin/glob ulin mass ratioOrdered By: [facility] on 11-14-2023 Albumin/Globulin [Mass ratio] 1.1 {ratio} [place] C Urineon 11-13-2023 Bacteria identified Cx Nom (U) Normal [facility] Comment on above: Performed By: #### 2 [id number], [id number] ####[facility] [address] [place] [address] Automated erythrocytes count in urine sediment (number/area)Ordered By: Tera Nevarez on 11-11-2023 RBC Auto (Urine sed) [#/Area] Innumerable [HPF] 0-4 [place] Automated leukocytes count i n urine sediment (number/area)Ordered By: Tera Nevarez on 11-11-2023 WBC Auto (Urine sed) [#/Area] 50-100 [HPF] 0-4 [place] Automated urine hyaline cast s count (number/volume)Ordered By: Tera Nevarez on 11-11-2023 Hyaline casts Auto (U) [#/Vol] 0-8 [LPF] 0-1 [place] BMPon 11-11-2023 Anion gap [Moles/Vol] 18 mmol/L High 6-16 [facility] Comment on above: Performed By: #### 2 711036, 9802056, 74563617, 00781442, 50491396, 52405308, 9956175 ####[facility] [address] [place] [address] Calcium [Mass/Vol] 8.8 mg/dL Low 8.9-11.1 [facility] Comment on above: Performed By: #### 2 509166, 5371977, 52573025, 00548469, 25864970, 08950750, 0213116 ####[facility] [address] [place] [address] Chloride [Moles/Vol] 95 mmol/L Low 101-111 [facility] Comment on above: Performed By: #### 2 391664, 2588735, 01843250, 78654603, 31575027, 77692854, 3523375 ####[facility] [address] [place] [address] CO2 [Moles/Vol] 24 mmol/L Normal 21-31 [facility] Comment on above: Performed By: #### 2 186469, 2188809, 09532640, 38510977, 14368153, 94137027, 0630494 ####[facility] [address] [place] [address] Creatinine [Mass/Vol] 4.9 mg/dL High 0.5-1.3 [facility] Comment on above: Performed By: #### 2 256021, 7413991, 21950177, 26088235, 08933868, 05981051, 1963095 ####[facility] [address] [place] [address] Glucose [Mass/Vol] 311 mg/dL High 55-199 [facility] Comment on above: Performed By: #### 2 468246, 7430570, 87597033, 26438632, 21649738, 99159932, 3186147 ####[facility] [address] [place] [address] Potassium [Moles/Vol] 5.3 mmol/L Normal 3.5-5.3 [facility] Comment on above: Performed By: #### 2 502264, 9614618, 34783264, 31429619, 67711210, 77811569, 6078400 ####[facility] [address] [place] [address] Sodium [Moles/Vol] 132 mmol/L Low 135-145 [facility] Comment on above: Performed By: #### 2 235151, 8383781, 62722830, 97042868, 95589908, 05108077, 7016371 ####[facility] [address] [place] [address] Urea nitrogen [Mass/Vol] 76 mg/dL High 5-21 [facility] Comment on above: Performed By: #### 2 927583, 1174131, 40127603, 07036825, 61925453, 26023765, 5506153 ####[facility] [address] [place] [address] Urea nitrogen/Creatinine [Mass ratio] 16 No Units Normal 10-20 [facility] Comment on above: Performed By: #### 2 014229, 2889086, 84682834, 02430473, 04739703, 88241438, 0018620 ####[facility] [address] [place] [address] BNPon 11-11-2023 Natriuretic peptide B (Bld) [Mass/Vol] 99 pg/mL High 5-80 [facility] Comment on above: Performed By: #### 2 039695, 5977501, 29584073, 35727101, 31852580, 76298743, 7119907 ####[facility] [address] [place] [address] Bilirubin Test strip Ql (U)O rdered By: Tera Nevarez on 11-11-2023 Bilirubin Ql (U) Negative Negative [facility] Blood Gas Art, with Lytes, Ramya hugh, [place] 11-11-2023 a/A Ratio Art 26.50 % Normal >=0.80 [facility] Comment on above: Performed By: #### 4 [id number] ####[facility] [address] [facility] [place] [address] AaDO2 Art 157.8 mmHg High 5.0-15.0 [facility] Comment on above: Performed By: #### 4 [id number] ####[facility] [address] [facility] [place] [address] Allens Test Positive Normal [facility] Comment on above: Performed By: #### 4 [id number] ####[facility] [address] [facility] [place] [address] Base Excess Arterial -2.4 mmol/L Low >=2.8 [facility] Comment on above: Performed By: #### 4 [id number] ####[facility] [address] [facility] [place] [address] cCa2+ Art 4.70 mg/dL Normal 4.40-5.30 [facility] Comment on above: Performed By: #### 4 72864076 ####[facility] [address] [facility] [place] [address] cCl- Art 97.0 mmol/L Low 101.0-111.0 [facility] Comment on above: Performed By: #### 4 [id number] ####[facility] [address] [facility] [place] [address] cGlu Art 311 mg/dL High 55-99 [facility] Comment on above: Performed By: #### 4 [id number] ####[facility] [address] [facility] [place] [address] cK+ Art 5.5 mmol/L High 3.5-5.3 [facility] Comment on above: Performed By: #### 4 02820731 ####[facility] [address] [place] [address] cLac Art 1.0 mmol/L Normal .5-2.2 [facility] Comment on above: Performed By: #### 4 [id number] ####[address] [address] communications maintainer+ Art 135.0 mmol/L Normal 135.0-145.0 [facility] Comment on above: Performed By: #### 4 [id number] ####[place] [address] Device Cannula Normal [facility] Comment on above: Performed By: #### 4 [id number] ####[place] [address] Drawn by korina clement Invalid Interpretation Code [facility] Comment on above: Performed By: #### 4 [id number] ####[place] [address] FCOHb Art 1.9 % Normal 1.5-4.9 [facility] Comment on above: Result Comment: Refe rence rangeNonsmoker <1.5%Smoker <5.0%Heavy Smoker <9.0% Performed By: #### 4 [id number] ####[address] [address] FIO2 BG 40 Invalid Interpretation Code [facility] Comment on above: Performed By: #### 4 [id number] ####[address] [address] FMetHb Art 0.1 % Normal 0.0-1.9 [facility] Comment on above: Performed By: #### 4 69794122 ####[address] [address] FO2Hb Art 86.9 % Low 93.0-100.0 [facility] Comment on above: Performed By: #### 4 34404282 ####[address] [address] HCO3 (Bld) [Moles/Vol] 22.2 mmol/L Normal 22.0-26.0 [facility] Comment on above: Performed By: #### 4 24429347 ####[address] [address] Hemoglobin (Bld) [Mass/Vol] 12.8 g/dL Normal 12.0-17.0 [facility] Comment on above: Performed By: #### 4 [id number] ####[address] [address] Oxygen saturation in Blood 88.7 % Low 95.0-100.0 [facility] Comment on above: Performed By: #### 4 68740139 ####[address] [address] P CO2 Arterial 58.0 mmHg High 35.0-45.0 [facility] Comment on above: Performed By: #### 4 57834489 ####[address] [address] P O2 Arterial 56.8 mmHg Low 80.0-100.0 [facility] Comment on above: Performed By: #### 4 78560501 ####[address] [address] pH Arterial 7.255 Low 7.350-7.450 [facility] Comment on above: Performed By: #### 4 38275935 ####[address] [address] Sample Site R Radial Normal [facility] Comment on above: Performed By: #### 4 62082785 ####[address] [address] Sample Type Arterial Draw Normal [facility] Comment on above: Performed By: #### 4 [id number] ####[address] [address] CBC w/ Auto Diffon 4 Basophils/100 WBC (Bld) 0.5 % Normal 0.0-2.0 [facility] Comment on above: Performed By: #### 2 879791, 8714283, 60938865, 92721113, 91623721, 55620787, 1666981 ####[address] [place] [address] Basophils/Leukocytes Auto (Bld) [Pure # fraction] 0.0 E9/L Normal 0.0-0.2 [facility] Comment on above: Performed By: #### 2 470506, 0513328, 46387578, 63966299, 67479000, 75893762, 4938344 ####[address] [address] Eosinophils (Bld) [#/Vol] 0.2 E9/L Normal 0.0-0.5 [facility] Comment on above: Performed By: #### 2 127349, 5610979, 13396673, 44205264, 50123951, 16480268, 0905659 ####[address] [address] Eosinophils/100 WBC (Bld) 1.9 % Normal 0.0-8.0 [facility] Comment on above: Performed By: #### 2 161677, 9747640, 31671955, 56070154, 82346229, 00816013, 0674083 ####[address] [place] [address] Erythrocyte distribution width (RBC) [Ratio] 18.6 % High 10.9-14.2 [facility] Comment on above: Performed By: #### 2 960895, 8656725, 30864030, 09473508, 41887252, 84057131, 9554686 ####[address] [address] Hematocrit (Bld) [Volume fraction] 41.9 % Normal 37.7-49.0 [facility] Comment on above: Performed By: #### 2 351762, 1938462, 97142738, 53866464, 30419843, 82358049, 4122488 ####[facility] [address] [place] [address] Hemoglobin (Bld) [Mass/Vol] 12.8 g/dL Low 13.5-17.5 [facility] Comment on above: Performed By: #### 2 515587, 6693639, 05491877, 59898606, 86343091, 30126694, 9155350 ####[facility] [address] [place] [address] Lymphocytes (Bld) [#/Vol] 0.8 E9/L Low 1.0-4.0 [facility] Comment on above: Performed By: #### 2 697152, 0683767, 99845335, 46661728, 41797748, 21764426, 1086289 ####[facility] [address] [place] [address] Lymphocytes/100 WBC (Bld) 9.1 % Low 14.0-50.0 [facility] Comment on above: Performed By: #### 2 086280, 4914090, 86735981, 84452565, 86368362, 87143476, 3285711 ####[facility] [address] [place] [address] MCH (RBC) [Entitic mass] 26.4 pg Low 27.0-34.0 [facility] Comment on above: Performed By: #### 2 762348, 0209074, 57589369, 39991526, 37137421, 75336558, 1070029 ####[facility] [address] [place] [address] MCHC (RBC) [Mass/Vol] 30.6 g/dL Low 31.4-36.0 [facility] Comment on above: Performed By: #### 2 611454, 7668352, 76725592, 24372546, 03415911, 75782021, 3381694 ####[facility] [address] [place] [address] MCV (RBC) [Entitic vol] 86.3 fL Normal 80.0-100.0 [facility] Comment on above: Performed By: #### 2 200208, 1518849, 06990126, 34468724, 40613106, 23796390, 7466500 ####[facility] [address] [place] [address] Monocytes (Bld) [#/Vol] 0.5 E9/L Normal 0.2-1.0 [facility] Comment on above: Performed By: #### 2 621837, 2580798, 36925252, 64880692, 71379496, 45534503, 7520357 ####[facility] [address] [place] [address] Neutrophils (Bld) [#/Vol] 7.0 E9/L Normal 2.0-7.5 [facility] Comment on above: Performed By: #### 2 382961, 1373894, 94473046, 07061354, 42674076, 44309358, 6494015 ####[address] [address] Neutrophils/100 WBC (Bld) 82.2 % High 36.0-75.0 [facility] Comment on above: Performed By: #### 2 723289, 1110677, 93695716, 37795588, 42259881, 53888270, 5103129 ####[address] [address] Platelet 254.0 E9/L Normal 150.0-500.0 [facility] Comment on above: Performed By: #### 2 670006, 5472767, 00174122, 38301363, 72562730, 21345089, 0867517 ####[address] [place] [address] Platelet mean volume (Bld) [Entitic vol] 6.9 fL Normal 6.4-10.8 [facility] Comment on above: Performed By: #### 2 273145, 7789137, 01270158, 07054648, 72772804, 52651366, 7338000 ####[facility] [address] [place] [address] RBC (Bld) [#/Vol] 4.9 E12/L Normal 4.3-5.9 [facility] Comment on above: Performed By: #### 2 880547, 5861935, 39910868, 46493503, 81218968, 81670700, 2958051 ####[facility] [address] [place] [address] WBC corrected for nucl RBC Auto (Bld) [#/Vol] 8.5 E9/L Normal 4.0-11.0 [facility] Comment on above: Performed By: #### 2 897334, 3124506, 60361604, 37182471, 75934324, 39713962, 6804769 ####[facility] [address] [place] [address] CHEMISTRYOrdered By: SYSTEM SYSTEM on 11-11-2023 Troponin [...] High Sensitivity Troponin I Instructions For Use, [employer]an, March 2018) Troponin 12.60 pg/mL Low 15.90 - 38.40 pg/mL [facility] Comment on above: Interpretive Data: T he 95% CI (Confidence Interval) PPV (Positive Predictive Value) for myocardial infarction in females is 38 pg/mL, in males 51 pg/mL. The results should be used in conjunction with clinical conditions of myocardial infarction. (Access High Sensitivity Troponin I Instructions For Use, [employer], March 2018) Anion gap [Moles/Vol] 18 mmol/L [...] Sensitivity Troponin I Instructions For Use, Opal Alexander, March 2018) Urea nitrogen [Mass/Vol] 76 mg/dL High 5 - 21 mg/dL [facility] Urea nitrogen/Creatinine [Mass ratio] 16 mg/mg Normal 10 - 20 [facility] CHEMISTRYOrdered By: Deacon Marcano on 11-11-2023 Natriuretic peptide B (Bld) [Mass/Vol] 99 pg/mL High 5 - 80 pg/mL [facility] HemeManSS COAGULATIONOrdered By: Catina Schmidt on 11-11-2023 aPTT Coag (PPP) [Time] 36.5 s Normal 25.1 - 36.5 second(s) [facility] Auto Coag Comment on above: Interpretive Data: [...] the same coagulation reagent and instrumentation as [facility]. Currently there are no coagulation studies available worldwide for children to 14 days, and no normal ranges. Heparin therapeutic range (represented by Anti-Factor Xa activity of 0.2 - 0.4 U/mL) corresponds to PTT of 56.6 - 109.0 sec. INR Coag (PPP) [Relative time] 0.94 {INR} Invalid Interpretation Code [facility] Auto Coag Comment on above: Interpretive Data: I NR results are specifically intended to assess patients stabilized on long-term Anticoagulation therapy suggested INR s Less Intensive Anticoagulation 2.0 3.0 Conventional Range 3.0 4.5 PT Coag (PPP) [Time] 10.5 s Normal 9.4 - 1 2.5 second(s) [facility] Auto Coag Comment on above: Interpretive Data: [...] the same coagulation reagent and instrumentation as [facility]. Currently there are no coagulation studies available worldwide for children to 14 days, and no normal ranges. Casts typing in urine sedime nt by light microscopyOrdered By: Tera Nevarez on 11-11-2023 Casts LM Nom (Urine sed) None seen [LPF] None Seen [place] Color Auto (U)Ordered By: Neptali Nevarez on 11-11-2023 Color (U) [place] Yellow [place] Consent for Treatmenton 10-20 Consent for Treatment [id number] .00TIFF Normal [facility] Creatine kinase [Enzymatic a ctivity/volume] in Serum or PlasmaOrdered By: Tera Nevarez on 11-11-2023 CK [Catalytic activity/Vol] 125 U/L [place] Creatinine [Mass/volume] in UrineOrdered By: Tera Nevarez on 11-11-2023 Creatinine (U) [Mass/Vol] 266.0 mg/dL 14.0-26.0 [place] ED Clinical Summaryon 2023 ED Clinical Summary [facility] ED Note-Physicianon 11-11-19 ED Note-Physician Normal [facility] Comment on above: Result Comment: Elec tronically Signed By: Paddy Betancourt PA-C\.br\Date and Time Signed: 11/11/23 12:42 EDT\.br\Electronically Co-Signed By: Alejandro Silva M.D.\.br\Date and Time Co-Signed: 11/11/23 19:21 EDT ED Patient Education Noteon 11-11-2023 ED Patient Education Note Normal [facility] ED Patient Summaryon 024 ED Patient Summary Normal [facility] Eosinophils detection in uri ne sediment by Jean stainOrdered By: Tera Nevarez on 11-11-2023 Eosinophils Jean stain Ql (Urine sed) 1 % 0-1 [place] FT Blood GasesOrdered By: St candice Hebert [...] 5.5 mmol/L High 3.5 - 5.3 mmol/L [facility] Res p Auto SS cLac Art 1.0 mmol/L Normal 0.5 - 2.2 mmol/L [facility] Res p Auto SS communications maintainer+ Art 135.0 mmol/L Normal 135.0 - 145.0 mmol/L [facility] Resp Auto SS Device Cannula (11/11/23 9:17 AM) Normal [facility] Resp Auto SS Drawn by korina clement Invalid Interpretation Code [facility] Resp Auto SS FCOHb Art 1.9 % Normal 1.5 - 4.9 % [facility] Resp Auto SS Comment on above: Interpretive Data: R eference range Nonsmoker <1.5% Smoker <5.0% Heavy Smoker <9.0% FIO2 BG 40 1 Invalid Interpretation Code [facility] Resp Auto SS FMetHb Art 0.1 % Normal 0.0 - 1.9 % [facility] Resp Auto SS FO2Hb Art 86.9 % Low 93.0 - 100.0 % [facility] Resp Auto SS HCO3 (Bld) [Moles/Vol] 22.2 mmol/L Normal 22.0 - 26.0 mmol/L [facility] Resp Auto SS Hemoglobin (Bld) [Mass/Vol] 12.8 g/dL Normal 12.0 - 17.0 gm/dL [facility] Resp Auto SS P CO2 Arterial 58.0 mm[Hg] High 35.0 - 45.0 mmHg FTM C Resp Auto SS P O2 Arterial 56.8 mm[Hg] Low 80.0 - 100.0 mmHg FTM C Resp Auto SS pH (Bld) 7.255 [pH] Low 7.350 - 7.450 [facility] Resp Auto SS Sample Site R Radial (11/11/23 9:17 AM) Normal [facility] Resp Auto SS Sample Type Arterial Draw (11/11/23 9:17 AM) Normal [facility] Resp Auto SS HEMATOLOGYOrdered By: SYSTEM SYSTEM [...] on 11-11-2023 Ketones (U) [Mass/Vol] Negative Negative [place] Lactate [Moles/volume] in Se rum or PlasmaOrdered By: Tera Nevarez on 11-11-2023 Lactate [Moles/Vol] 0.8 mmol/L 0.5-2.2 [facility] Lactic Acidon 11-11-2023 Lactic Acid Lvl 1.5 mmol/L Normal 0.5-2.2 [facility] Comment on above: Performed By: #### 2 676638, 2352328, 12207346, 78176065, 50504765, 92217669, 8889375 ####[facility] [address] [place] [address] Monitor Recordon 11-11-2023 Monitor Record [id number]# 1.00TIFF Normal [facility] Monitor Record [id number]# 1.00TIFF Normal [facility] Natriuretic peptide B [Mass/ Vol]Ordered By: Tera Nevarez on 11-11-2023 Natriuretic peptide B (Bld) [Mass/Vol] 115.0 pg/mL 5-100 [place] Nitrite Test strip Ql (U)Ord ered By: Tera Nevarez on 11-11-2023 Nitrite Ql (U) Negative Negative [place] No Panel InformationOrdered By: Tera Nevarez on 11-11-2023 Blood Gas Liter Flow 5 L/min [facility] PT & PTTon 11-11-2023 aPTT Coag (PPP) [Time] 36.5 second(s) Normal 25.1-36.5 [facility] Comment on above: Result Comment: Para [...] the same coagulation reagent and instrumentation as [facility]. Currently there are no coagulation studies available worldwide for children to 14 days, and no normal ranges. Heparin therapeutic range (represented by Anti-Factor Xa activity of 0.2 - 0.4 U/mL) corresponds to PTT of 56.6 - 109.0 sec. Performed By: #### 2 737638, 0178284, 26699106, 14880361, 52813174, 46421982, 4084940 ####[facility] [address] [place] [address] INR Coag (PPP) [Relative time] 0.94 {INR} Invalid Interpretation Code [facility] Comment on above: Result Comment: INR results are specifically intended to assess patients stabilized on long-term Anticoagulation therapy suggested INR?s ?Less Intensive Anticoagulation? 2.0 ? 3.0Conventional Range 3.0 ? 4.5 Performed By: #### 2 858920, 9638252, 03641657, 62651729, 26077983, 28247691, 3042305 ####[facility] [address] [place] [address] PT Coag (PPP) [Time] 10.5 second(s) Normal 9.4-12.5 [facility] Comment on above: Result Comment: 15 d ays - 4 weeks 1 - 5 months 6 -11 months 1- 5 years 6-10 years 11 -17 years Mean: 11.2 (9.5-12.6) Mean: 11.0 (9.7-12.8) Mean: 11.0 (9.8-13.0) Mean: 11.3 (9.9-13.4) Mean: 11.7 (10.0-14.6) Mean: 11.8 (10.0 - 14.1) Pediatric Reference ranges were obtained from a study by Isaiah Rolla, et al. prepared from 1437 samples obtained at 7 different centers using the same coagulation reagent and instrumentation as [facility]. Currently there are no coagulation studies available worldwide for children to 14 days, and no normal ranges. Performed By: #### 2 606192, 3580642, 75665077, 91575189, 11808086, 52577907, 6303809 ####[facility] [address] [place] [address] Potassium [Moles/volume] in UrineOrdered By: Tera Nevarez on 11-11-2023 Potassium (U) [Moles/Vol] 29.7 mmol/L [place] Comment on above: No reference range e stablished Pre-Arrival Noteon 4 Pre-Arrival Note Normal [facility] Protein Auto test strip (U) [Mass/Vol]Ordered By: Tera Nevarez on 11-11-2023 Protein (U) [Mass/Vol] 100 mg/dL Negative [place] Protein [Mass/volume] in Uri neOrdered By: Tera Nevarez on 11-11-2023 Protein (U) [Mass/Vol] 105 mg/dL 0-9 [place] Sodium [Moles/volume] in Uri neOrdered By: Tera Nevarez on 11-11-2023 Sodium (U) [Moles/Vol] 18 mmol/L [place] Comment on above: No reference range e stablished Specific gravity Auto test s trip (U) [Rel density]Ordered By: Tera Nevarez on 11-11-2023 Specific gravity (U) [Rel density] 1.017 1.001-1.030 [place] Squamous epithelial cells de tection in urine sediment by light microscopyOrdered By: Tera Nevarez on 11-11-2023 Epithelial cells.squamous LM Ql (Urine sed) 0-1 [HPF] 0-2 [place] Transfer Documentson 024 Transfer Documents [id number]# 1.00TIFF Normal [facility] Troponin 0 Hr.on 11-11-2023 Troponin 12.40 pg/mL Low 15.90-38.40 [facility] Comment on above: Result Comment: The 95% CI (Confidence Interval) PPV (Positive Predictive Value) for myocardial infarction in females is 38 pg/mL, in males 51 pg/mL. The results should be used in conjunction with clinical conditions of myocardial infarction.(Access High Sensitivity Troponin I Instructions For Use, [employer], March 2018) Performed By: #### 2 210974, 8742898, 49067746, 51791005, 84170537, 37441282, 8148255 ####[facility] [address] [place] [address] Troponin 3 Hr.on 11-11-2023 Troponin 12.60 pg/mL Low 15.90-38.40 [facility] Comment on above: Result Comment: The 95% CI (Confidence Interval) PPV (Positive Predictive Value) for myocardial infarction in females is 38 pg/mL, in males 51 pg/mL. The results should be used in conjunction with clinical conditions of myocardial infarction.([email or web address] High Sensitivity Troponin I Instructions For Use, [employer], March 2018) Performed By: #### 1 1056346 ####[facility] [address] [place] [address] Troponin 6 Hr.on 11-11-2023 Troponin 12.90 pg/mL Low 15.90-38.40 [facility] Comment on above: Result Comment: The 95% CI (Confidence Interval) PPV (Positive Predictive Value) for myocardial infarction in females is 38 pg/mL, in males 51 pg/mL. The results should be used in conjunction with clinical conditions of myocardial infarction.(Access High Sensitivity Troponin I Instructions For Use, [employer], March 2018) Performed By: #### 1 3101212 ####[facility] [address] [place] [address] Troponin I.cardiac [Mass/vol ume] in Serum or Plasma by Detection limit <= 0.01 ng/Ordered By: Tera Nevarez on 11-11-2023 Troponin I.cardiac DL <= 0.01 ng/mL [Mass/Vol] 12.3 pg/mL 0.0-20.0 [place] UA with Cult Rflxon 03-23-20 24 Bilirubin Ql (U) 1+ Abnormal Negative [facility] Comment on above: Performed By: #### 2 526726, [id number] ####[facility] [address] [place] [address] Clarity (U) TURBID Abnormal Clear [facility] Comment on above: Performed By: #### 2 233571, [id number] ####[facility] [address] [place] [address] Color (U) BROWN Invalid Interpretation Code [facility] Comment on above: Performed By: #### 2 929933, [id number] ####[facility] [address] [place] [address] Glucose Test strip (U) [Mass/Vol] Negative Normal Negative [facility] Comment on above: Performed By: #### 2 234146, [id number] ####[facility] [address] [place] [address] Hemoglobin Ql (U) 3+ Abnormal Negative [facility] Comment on above: Performed By: #### 2 109626, [id number] ####[facility] [address] [facility] [place] [address] Ketones (U) [Mass/Vol] TRACE Invalid Interpretation Code Negative [facility] Comment on above: Performed By: #### 2 946402, [id number] ####[facility] [address] [place] [address] Nitrite Ql (U) Positive Abnormal Negative [facility] Comment on above: Performed By: #### 2 385645, [id number] ####[facility] [address] [facility] [place] [address] pH (U) 5.5 [pH] Invalid Interpretation Code 5.0-9.0 [facility] Comment on above: Performed By: #### 2 542760, [id number] ####[facility] [address] [facility] [place] [address] Protein (U) [Mass/Vol] 2+ Abnormal Negative [facility] Comment on above: Performed By: #### 2 872089, [id number] ####[facility] [address] [place] [address] Specific gravity (U) [Rel density] >=1.030 Invalid Interpretation Code 1.005-1.030 [facility] Comment on above: Performed By: #### 2 401691, 1681442939 ####[facility] [address] [place] [address] UA Bacteria 2+ CD:[id number] Abnormal Trace [facility] Comment on above: Performed By: #### 2 481393, [id number] ####[facility] [address] [place] [address] UA Mucous Trace Normal Negative [facility] Comment on above: Performed By: #### 2 909855, [id number] ####[address] [address] UA RBC >75 Abnormal 0-3 [facility] Comment on above: Performed By: #### 2 875207, [id number] ####[facility] [address] [place] [address] UA Squam Epithelial 0-2 Normal 0-2 [facility] Comment on above: Performed By: #### 2 737601, [id number] ####[address] [address] UA WBC 31-75 Abnormal 0-5 [facility] Comment on above: Performed By: #### 2 806822, [id number] ####[facility] [address] [place] [address] Urobilinogen Qn (U) 0.2 Normal 0.0-1.0 [facility] Comment on above: Performed By: #### 2 285487, [id number] ####[facility] [address] [place] [address] WBC Auto Ql (U) 1+ Abnormal Negative [facility] Comment on above: Performed By: #### 2 788639, [id number] ####[facility] [address] [place] [address] UA Spec Desc Clean Catch Normal [facility] Comment on above: Performed By: #### 2 322686, [id number] ####[facility] [address] [place] [address] URINALYSISOrdered By: Yohannes Schmidt on 11-11-2023 Bilirubin [...] (11/11/23 9:14 AM) Invalid Interpretation Code 0-5 [facility] UA Auto SS Urobilinogen Qn (U) 0.2 (11/11/23 9:14 AM) Normal 0.0 - 1.0 [facility] UA Auto SS WBC Auto Ql (U) 1+ *ABN* (11/11/23 9:14 AM) Invalid Interpretation Code Negative [facility] UA Auto SS URINALYSISOrdered By: Paddy Jesus nderson on 11-11-2023 UA Spec Desc Clean Catch (11/11/23 9:14 AM) Normal [facility] UA Auto SS Work Phone: Urine bacteria detection by automated methodOrdered By: Tera Nevarez on 11-11-2023 Bacteria Auto Ql (U) None seen None Seen [facility] Urine clarity by refractomet ry automatedOrdered By: Tera Nevarez on 11-11-2023 Clarity Refractometry automated (U) Turbid Clear [place] Urine culture routineOrdered By: Tera Nevarez on 11-11-2023 Bacteria identified Cx Nom (U) Kaelyn albicans [place] Urine glucose measurement by automated test strip (mass/volume)Ordered By: Tera Nevarez on 11-11-2023 Glucose Auto test strip (U) [Mass/Vol] Normal mg/dL Normal [place] Urine hemoglobin detection b y automated test stripOrdered By: Tera Nevarez on 11-11-2023 Hemoglobin Auto test strip Ql (U) 3+ Negative [place] Urine leukocyte esterase det ection by automated test stripOrdered By: Tera Nevarez on 11-11-2023 Leukocyte esterase Auto test strip Ql (U) 3+ Negative [place] Urobilinogen Auto test strip (U) [Mass/Vol]Ordered By: Tera Nevarez on 11-11-2023 Urobilinogen (U) [Mass/Vol] Normal mg/dL Normal [place] XR Chest Single Viewon 11-10 XR Chest Single View Normal [facility] Yeast detection in urine sed iment by light microscopyOrdered By: Tera Nevarez on 11-11-2023 Yeast LM Ql (Urine sed) Hyphae present [HPF] None Seen [place] Comment on above: 2+ eGFRon 11-11-2023 eGFR 12 mL/min/1.73 m2 Low >=59 [facility] Comment on above: Order Comment: Order added by Discern Expert. Performed By: #### 2 830355, 6165641, 42791030, 31288381, 28132657, 21248431, 3636479 ####[facility] [address] [place] [address] pH Auto test strip (U)Ordere d By: Tera Nevarez on 11-11-2023 pH (U) 5.0 [pH] 5.0-9.0 [place] Ambulatory Visit Summaryon 0 11-01-2023 Ambulatory Visit Summary Normal [facility] CNPNon 10-31-2023 CNPN Telephone (PODCCP) NICOLE LORA ([id number]) 1960 M Date Time Provider Department 10/31/23 MOUNIKA BROOKE PODCC During your visit today, we recorded the following information about you: Allergies As of Date: 10/31/2023 Noted Allergy Reaction PENICILLINS 12/01/2014 2 - Rash Date Reviewed: 10/25/2023 Reviewed by: Matt Kingston RN - Fully Assessed Reason for Visit: Follow Up Phone Call [[id number]] Cmt: Post Discharge F/U - attempt made. [...] Status:Closed by KIKO DEL VALLE on 10/31/23 [facility] Consent for Treatmenton 10-19 Consent for Treatment [id number]#1 .00TIFF [facility] Discharge Instructionson Discharge Instructions [id number]# 1.00TIFF Normal [facility] ED Clinical Summaryon 2023 ED Clinical Summary Normal Gina srinivasan [facility] ED Note-Physicianon 10-30-19 24 ED Note-Physician Normal [facility] Comment on above: Result Comment: Elec tronically Signed By: Staci Beck DO\Date and Time Signed: 10/30/23 05:22 EDT ED Patient Education Noteon 10-30-2023 ED Patient Education Note Normal [facility] ED Patient Summaryon 024 ED Patient Summary Normal [facility] CBC W Auto Differential pane l (Bld)on 10-28-2023 Basophils (Bld) [#/Vol] 0.04 10*3/uL Normal <0.11 [facility] Comment on above: Order Comment: Speci men Type: BLOOD SPECIMEN Ordering Facility: [facility] Address: [address] [place] [address] Performed By: #### 1 9123-9, 43808-7 #### [facility] CLIA [id number] [address] [place] [address] [place] Basophils/100 WBC (Bld) 0.7 % Normal [facility] Comment on above: Order Comment: Speci men Type: BLOOD SPECIMEN Ordering Facility: [facility] Address: [address] [place] [address] Performed By: #### 1 9123-9, 71138-2 #### [facility] CLIA [id number] [address] [place] [address] [place] Differential cell count method Nom (Bld) Auto Normal [facility] Comment on above: Order Comment: Speci men Type: BLOOD SPECIMEN Ordering Facility: [facility] Address: [address] [place] [address] Performed By: #### 1 9123-9, 85241-6 #### [facility] CLIA [id number] [address] [place] [address] [place] Eosinophils (Bld) [#/Vol] 0.32 10*3/uL Normal <0.46 [facility] Comment on above: Order Comment: Speci men Type: BLOOD SPECIMEN Ordering Facility: [facility] Address: [address] [place] [address] Performed By: #### 1 67239, 32844-9 #### [facility] CLIA [id number] [address] [place] [address] [place] Eosinophils/100 WBC (Bld) 5.4 % Normal [facility] Comment on above: Order Comment: Speci men Type: BLOOD SPECIMEN Ordering Facility: [facility] Address: [address] [place] [address] Performed By: #### 1 9123-04, #### [facility] CLIA [id number] [address] [place] [address] [place] Erythrocyte distribution width (RBC) [Ratio] 16.1 % High 11.5-15.0 [facility] Comment on above: Order Comment: Speci men Type: BLOOD SPECIMEN Ordering Facility: [facility] Address: [address] [place] [address] Performed By: #### 1 9123-04, #### [facility] CLIA [id number] [address] [place] [address] [place] Hematocrit (Bld) [Volume fraction] 41.3 % Normal 39.0-51.0 [facility] Comment on above: Order Comment: Speci men Type: BLOOD SPECIMEN Ordering Facility: [facility] Address: [address] [place] [address] Performed By: #### 1 23, #### [facility] CLIA [id number] [address] [place] [address] [place] Hemoglobin (Bld) [Mass/Vol] 12.3 g/dL Low 13.0-17.0 [facility] Comment on above: Order Comment: Speci men Type: BLOOD SPECIMEN Ordering Facility: [facility] Address: [address] [place] [address] Performed By: #### 1 2023-9, 17895-2 #### [facility] CLIA [id number] [address] [place] [address] [place] Immature granulocytes (Bld) [#/Vol] 10*3/uL Normal <0.10 [facility] Comment on above: Order Comment: Speci men Type: BLOOD SPECIMEN Ordering Facility: [facility] Address: [address] [place] [address] Performed By: #### 1 23, #### [facility] CLIA [id number] [address] [place] [address] [place] Immature granulocytes/100 WBC (Bld) 0.3 % Normal [facility] Comment on above: Order Comment: Speci men Type: BLOOD SPECIMEN Ordering Facility: [facility] Address: [address] [place] [address] Performed By: #### 1 21, #### [facility] CLIA [id number] [address] [place] [address] [place] Lymphocytes (Bld) [#/Vol] 1.01 10*3/uL Normal 1.00-4.00 [facility] Comment on above: Order Comment: Speci men Type: BLOOD SPECIMEN Ordering Facility: [facility] Address: [address] [place] [address] Performed By: #### 1 4371, #### [facility] CLIA [id number] [address] [place] [address] [place] Lymphocytes/100 WBC (Bld) 17.0 % Normal [facility] Comment on above: Order Comment: Speci men Type: BLOOD SPECIMEN Ordering Facility: [facility] Address: [address] [place] [address] Performed By: #### 1 239, #### [facility] CLIA [id number] [address] [place] [address] [place] MCH (RBC) [Entitic mass] 26.6 pg Normal 26.0-34.0 [facility] Comment on above: Order Comment: Speci men Type: BLOOD SPECIMEN Ordering Facility: [facility] Address: [address] [place] [address] Performed By: #### 1 9487, 51886-2 #### [facility] CLIA [id number] [address] [place] [address] [place] MCHC (RBC) [Mass/Vol] 29.8 g/dL Low 30.5-36.0 [facility] Comment on above: Order Comment: Speci men Type: BLOOD SPECIMEN Ordering Facility: [facility] Address: [address] [place] [address] Performed By: #### 1 9123-9, 16951-5 #### [facility] CLIA [id number] [address] [place] [address] [place] MCV (RBC) [Entitic vol] 89.4 fL Normal 80.0-100.0 [facility] Comment on above: Order Comment: Speci men Type: BLOOD SPECIMEN Ordering Facility: [facility] Address: [address] [place] [address] Performed By: #### 1 9123-9, 80604-3 #### [facility] CLIA [id number] [address] [place] [address] [place] Monocytes (Bld) [#/Vol] 0.67 10*3/uL Normal <0.87 [facility] Comment on above: Order Comment: Speci men Type: BLOOD SPECIMEN Ordering Facility: [facility] Address: [address] [place] [address] Performed By: #### 1 9123-9, 33512-0 #### [facility] CLIA [id number] [address] [place] [address] [place] Monocytes/100 WBC (Bld) 11.3 % Normal [facility] Comment on above: Order Comment: Speci men Type: BLOOD SPECIMEN Ordering Facility: [facility] Address: [address] [place] [address] Performed By: #### 1 9123-9, 02726-8 #### [facility] CLIA [id number] [address] [place] [address] [place] Neutrophils (Bld) [#/Vol] 3.88 10*3/uL Normal 1.45-7.50 [facility] Comment on above: Order Comment: Speci men Type: BLOOD SPECIMEN Ordering Facility: [facility] Address: [address] [place] [address] Performed By: #### 1 23, #### [facility] CLIA [id number] [address] [place] [address] [place] Neutrophils/100 WBC (Bld) 65.3 % Normal [facility] Comment on above: Order Comment: Speci men Type: BLOOD SPECIMEN Ordering Facility: [facility] Address: [address] [place] [address] Performed By: #### 1 9123-04, #### [facility] CLIA [id number] [address] [place] [address] [place] Nucleated RBC (Bld) [#/Vol] 10*3/uL Normal <0.01 [facility] Comment on above: Order Comment: Speci men Type: BLOOD SPECIMEN Ordering Facility: [facility] Address: [address] [place] [address] Performed By: #### 1 9123-04, #### [facility] CLIA [id number] [address] [place] [address] [place] Nucleated RBC/100 WBC (Bld) [Ratio] 0.0 /100 WBC Normal [facility] Comment on above: Order Comment: Speci men Type: BLOOD SPECIMEN Ordering Facility: [facility] Address: [address] [place] [address] Performed By: #### 1 91239, #### [facility] CLIA [id number] [address] [place] [address] [place] Platelet mean volume (Bld) [Entitic vol] 8.9 fL Low 9.0-12.7 [facility] Comment on above: Order Comment: Speci men Type: BLOOD SPECIMEN Ordering Facility: [facility] Address: [address] [place] [address] Performed By: #### 1 91239, #### [facility] CLIA [id number] [address] [place] [address] [place] Platelets (Bld) [#/Vol] 250 10*3/uL Normal 150-400 [facility] Comment on above: Order Comment: Speci men Type: BLOOD SPECIMEN Ordering Facility: [facility] Address: [address] [place] [address] Performed By: #### 1 9123-9, 98790-1 #### [facility] CLIA [id number] [address] [place] [address] [place] RBC (Bld) [#/Vol] 4.62 10*6/uL Normal 4.20-6.00 [facility] Comment on above: Order Comment: Speci men Type: BLOOD SPECIMEN Ordering Facility: [facility] Address: [address] [place] [address] Performed By: #### 1 9123-9, 04920-6 #### [facility] CLIA [id number] [address] [place] [address] OF [place] [facility] W[facility] (Bld) [#/Vol] 5.94 10*3/uL Normal 3.70-11.00 [facility] Comment on above: Order Comment: Speci men Type: BLOOD SPECIMEN Ordering Facility: [facility] Address: [address] [place] [address] Performed By: #### 1 9123-9, 53254-7 #### [facility] CLIA [id number] [address] [place], [place] [id number] [facility] CNDSon 10-28-2023 CNDS HNO ID: [id number] Author: TAY STEWART MD Service: General Internal [...] Follow Up Appointments Follow-Up Appointment Office number: [phone] When: In 1 week Patient/Parents to call for appointment?: Yes Tay Stewart MD [phone] [place] [address] PCP Requested Referral Follow-Up Appointment With: your Primary Care Doctor When: In 1 week Patient/Parents to call for appointment?: Yes Additional Provider to Provider Information: This is a 63 year old male with a PMHx of CKD 3b, chronic respiratory failure, morbid obesity, insulin dependent diabetes, left forefoot amputation admitted from home, lives in [place] for fluid overload. The patient states he's [...] no ischemic (more content not included)... Normal [facility] Magnesium SerPl-mCncon 10-27 Magnesium [Mass/Vol] 2.0 mg/dL Normal 1.7-2.3 [facility] Comment on above: Order Comment: Speci men Type: BLOOD SPECIMEN Ordering Facility: [facility] Address: [address] [place] [address] Performed By: #### 1 9123-9, 58918-2 #### [facility] CLIA [id number] [address] [place] [address] [place] Renal function 2000 panelon 10-28-2023 Albumin [Mass/Vol] 3.3 g/dL Low 3.9-4.9 [facility] Comment on above: Order Comment: Speci men Type: BLOOD SPECIMEN Ordering Facility: [facility] Address: [address] [place] [address] Performed By: #### 1 9, 67467-1 #### [facility] CLIA [id number] [address] [place] [address] [place] Anion gap [Moles/Vol] 8 mmol/L Low 9-18 [facility] Comment on above: Order Comment: Speci men Type: BLOOD SPECIMEN Ordering Facility: [facility] Address: [address] [place] [address] Performed By: #### 1 9123-04, 14013-0 #### [facility] CLIA [id number] [address] [place] [address] [place] Calcium [Mass/Vol] 9.1 mg/dL Normal 8.5-10.2 [facility] Comment on above: Order Comment: Speci men Type: BLOOD SPECIMEN Ordering Facility: [facility] Address: [address] [place] [address] Performed By: #### 1 9, 64000-7 #### [facility] CLIA [id number] [address] [place] [address] [place] Chloride [Moles/Vol] 97 mmol/L Normal 97-105 [facility] Comment on above: Order Comment: Speci men Type: BLOOD SPECIMEN Ordering Facility: [facility] Address: [address] [place] [address] Performed By: #### 1 9, 74392-6 #### [facility] CLIA [id number] [address] [place] [address] [place] CO2 [Moles/Vol] 35 mmol/L High 22-30 [facility] Comment on above: Order Comment: Speci men Type: BLOOD SPECIMEN Ordering Facility: [facility] Address: [address] [place] [address] Performed By: #### 1 79239, 75386-5 #### [facility] CLIA [id number] [address] [place] [address] [place] Creatinine [Mass/Vol] 1.72 mg/dL High 0.73-1.22 [facility] Comment on above: Order Comment: [place] Type: BLOOD SPECIMEN Ordering Facility: [facility] Address: [address] [place] [address] Performed By: #### 1 9123-9, 76097-3 #### [facility] CLIA [id number] [place] [address] [place] Creatinine and Glomerular filtration rate.predicted panel (S/P/Bld) 44 mL/min/1.73m??? Low >=60 [facility] Comment on above: Order Comment: [place] Type: BLOOD SPECIMEN Ordering Facility: [facility] Address: [address] [place] [address] Result Comment: Meredith mated Glomerular Filtration Rate [...] actual GFR. Performed By: #### 1 9123-9, 79234-3 #### [facility] CLIA [id number] [place], [place] [address] [place] Glucose [Mass/Vol] 152 mg/dL High 74-99 [facility] Comment on above: Order Comment: [place] Type: BLOOD SPECIMEN Ordering Facility: [facility] Address: [address] [place] [address] Result Comment: The [place] Diabetes Association (ADA) provides guidance for cutoff [...] Standards of Medical Care in Diabetes 2016, [place] Diabetes [employer]. Diabetes Care. 2016.39(Suppl 1). Performed By: #### 1 9123-9, 99048-8 #### [facility] CLIA [id number] [address] [place] [address] [place] Phosphate [Mass/Vol] 4.6 mg/dL Normal 2.7-4.8 [facility] Comment on above: Order Comment: Speci men Type: BLOOD SPECIMEN Ordering Facility: [facility] Address: [address] [place] [address] Performed By: #### 1 9123-9, 19785-3 #### [facility] CLIA [id number] [address] [place] [address] [place] Potassium [Moles/Vol] 4.0 mmol/L Normal 3.7-5.1 [facility] Comment on above: Order Comment: Speci men Type: BLOOD SPECIMEN Ordering Facility: [facility] Address: [address] [place] [address] Performed By: #### 1 9123-9, 63807-3 #### [facility] CLIA [id number] [address] [place] [address] [place] Sodium [Moles/Vol] 140 mmol/L Normal 136-144 [facility] Comment on above: Order Comment: Speci men Type: BLOOD SPECIMEN Ordering Facility: [facility] Address: [address] [place] [address] Performed By: #### 1 91239, 10724-5 #### [facility] CLIA [id number] [address] [place] [address] [place] Urea nitrogen [Mass/Vol] 39 mg/dL High 9-24 [facility] Comment on above: Order Comment: Speci men Type: BLOOD SPECIMEN Ordering Facility: [facility] Address: [address] [place] [address] Performed By: #### 1 9123-9, 83948-4 #### [facility] CLIA [id number] [address] [place] [address] [place] CBC W Auto Differential pane l (Bld)on 10-27-2023 Basophils (Bld) [#/Vol] 10*3/uL Normal <0.11 [facility] Comment on above: Order Comment: Speci men Type: BLOOD SPECIMEN Ordering Facility: [facility] Address: [address] [place] [address] Performed By: #### 1 239, 94380-8 #### [facility] CLIA [id number] [address] [place] [address] [place] Basophils/100 WBC (Bld) 0.3 % Normal [facility] Comment on above: Order Comment: Speci men Type: BLOOD SPECIMEN Ordering Facility: [facility] Address: [address] [place] [address] Performed By: #### 1 239, #### [facility] CLIA [id number] [address] [place] [address] [place] Differential cell count method Nom (Bld) Auto Normal [facility] Comment on above: Order Comment: Speci men Type: BLOOD SPECIMEN Ordering Facility: [facility] Address: [address] [place] [address] Performed By: #### 1 0023, #### [facility] CLIA [id number] [address] [place] [address] [place] Eosinophils (Bld) [#/Vol] 0.26 10*3/uL Normal <0.46 [facility] Comment on above: Order Comment: Speci men Type: BLOOD SPECIMEN Ordering Facility: [facility] Address: [address] [place] [address] Performed By: #### 1 77239, 68706-9 #### [facility] CLIA [id number] [address] [place] [address] [place] Eosinophils/100 WBC (Bld) 4.4 % Normal [facility] Comment on above: Order Comment: Speci men Type: BLOOD SPECIMEN Ordering Facility: [facility] Address: [address] [place] [address] Performed By: #### 1 9123-04, #### [facility] CLIA [id number] [address] [place] [address] [place] Erythrocyte distribution width (RBC) [Ratio] 16.0 % High 11.5-15.0 [facility] Comment on above: Order Comment: Speci men Type: BLOOD SPECIMEN Ordering Facility: [facility] Address: [address] [place] [address] Performed By: #### 1 9123-9, #### [facility] CLIA [id number] [address] [place] [address] [place] Hematocrit (Bld) [Volume fraction] 39.9 % Normal 39.0-51.0 [facility] Comment on above: Order Comment: Speci men Type: BLOOD SPECIMEN Ordering Facility: [facility] Address: [address] [place] [address] Performed By: #### 1 9123-9, #### [facility] CLIA [id number] [address] [place] [address] [place] Hemoglobin (Bld) [Mass/Vol] 12.0 g/dL Low 13.0-17.0 [facility] Comment on above: Order Comment: Speci men Type: BLOOD SPECIMEN Ordering Facility: [facility] Address: [address] [place] [address] Performed By: #### 1 9123-9, #### [facility] CLIA [id number] [address] [place] [address] [place] Immature granulocytes (Bld) [#/Vol] 10*3/uL Normal <0.10 [facility] Comment on above: Order Comment: Speci men Type: BLOOD SPECIMEN Ordering Facility: [facility] Address: [address] [place] [address] Performed By: #### 1 9123-9, #### [facility] CLIA [id number] [address] [place] [address] [place] Immature granulocytes/100 WBC (Bld) 0.3 % Normal [facility] Comment on above: Order Comment: Speci men Type: BLOOD SPECIMEN Ordering Facility: [facility] Address: [address] [place] [address] Performed By: #### 1 9123-9, 01644-2 #### [facility] CLIA [id number] [address] [place] [address] [place] Lymphocytes (Bld) [#/Vol] 0.96 10*3/uL Low 1.00-4.00 [facility] Comment on above: Order Comment: Speci men Type: BLOOD SPECIMEN Ordering Facility: [facility] Address: [address] [place] [address] Performed By: #### 1 9123-9, #### [facility] CLIA [id number] [address] [place] [address] [place] Lymphocytes/100 WBC (Bld) 16.4 % Normal [facility] Comment on above: Order Comment: Speci men Type: BLOOD SPECIMEN Ordering Facility: [facility] Address: [address] [place] [address] Performed By: #### 1 239, #### [facility] CLIA [id number] [address] [place] [address] [place] MCH (RBC) [Entitic mass] 26.7 pg Normal 26.0-34.0 [facility] Comment on above: Order Comment: Speci men Type: BLOOD SPECIMEN Ordering Facility: [facility] Address: [address] [place] [address] Performed By: #### 1 9123-9, #### [facility] CLIA [id number] [address] [place] [address] [place] MCHC (RBC) [Mass/Vol] 30.1 g/dL Low 30.5-36.0 [facility] Comment on above: Order Comment: Speci men Type: BLOOD SPECIMEN Ordering Facility: [facility] Address: [address] [place] [address] Performed By: #### 1 9123-9, 20889-4 #### [facility] CLIA [id number] [address] [place] [address] [place] MCV (RBC) [Entitic vol] 88.9 fL Normal 80.0-100.0 [facility] Comment on above: Order Comment: Speci men Type: BLOOD SPECIMEN Ordering Facility: [facility] Address: [address] [place] [address] Performed By: #### 1 9123-04, #### [facility] CLIA [id number] [address] [place] [address] [place] Monocytes (Bld) [#/Vol] 0.70 10*3/uL Normal <0.87 [facility] Comment on above: Order Comment: Speci men Type: BLOOD SPECIMEN Ordering Facility: [facility] Address: [address] [place] [address] Performed By: #### 1 9123-04, #### [facility] CLIA [id number] [address] [place] [address] [place] Monocytes/100 WBC (Bld) 11.9 % Normal [facility] Comment on above: Order Comment: Speci men Type: BLOOD SPECIMEN Ordering Facility: [facility] Address: [address] [place] [address] Performed By: #### 1 9123-04, #### [facility] CLIA [id number] [address] [place] [address] [place] Neutrophils (Bld) [#/Vol] 3.91 10*3/uL Normal 1.45-7.50 [facility] Comment on above: Order Comment: Speci men Type: BLOOD SPECIMEN Ordering Facility: [facility] Address: [address] [place] [address] Performed By: #### 1 9123-04, #### [facility] CLIA [id number] [address] [place] [address] [place] Neutrophils/100 WBC (Bld) 66.7 % Normal [facility] Comment on above: Order Comment: Speci men Type: BLOOD SPECIMEN Ordering Facility: [facility] Address: [address] [place] [address] Performed By: #### 1 9123-04, 84593-5 #### [facility] CLIA [id number] [address] [place] [address] [place] Nucleated RBC (Bld) [#/Vol] 10*3/uL Normal <0.01 [facility] Comment on above: Order Comment: Speci men Type: BLOOD SPECIMEN Ordering Facility: [facility] Address: [address] [place] [address] Performed By: #### 1 9123-9, 75677-2 #### [facility] CLIA [id number] [address] [place] [address] [place] Nucleated RBC/100 WBC (Bld) [Ratio] 0.0 /100 WBC Normal [facility] Comment on above: Order Comment: Speci men Type: BLOOD SPECIMEN Ordering Facility: [facility] Address: [address] [place] [address] Performed By: #### 1 9123-9, #### [facility] CLIA [id number] [address] [place] [address] [place] Platelet mean volume (Bld) [Entitic vol] 8.7 fL Low 9.0-12.7 [facility] Comment on above: Order Comment: Speci men Type: BLOOD SPECIMEN Ordering Facility: [facility] Address: [address] [place] [address] Performed By: #### 1 9123-9, #### [facility] CLIA [id number] [address] [place] [address] [place] Platelets (Bld) [#/Vol] 222 10*3/uL Normal 150-400 [facility] Comment on above: Order Comment: Speci men Type: BLOOD SPECIMEN Ordering Facility: [facility] Address: [address] [place] [address] Performed By: #### 1 9123-9, 46572-9 #### [facility] CLIA [id number] [address] [place] [address] [place] RBC (Bld) [#/Vol] 4.49 10*6/uL Normal 4.20-6.00 [facility] Comment on above: Order Comment: Speci men Type: BLOOD SPECIMEN Ordering Facility: [facility] Address: [address] [place] [address] Performed By: #### 1 9123-9, 14240-6 #### [facility] CLIA [id number] [address] [place] [address] [place] [facility] [place] WBC (Bld) [#/Vol] 5.87 10*3/uL Normal 3.70-11.00 [facility] Comment on above: Order Comment: Speci men Type: BLOOD SPECIMEN Ordering Facility: [facility] Address: [address] [place] [address] Performed By: #### 1 9123-9, 78217-3 #### [facility] CLIA [id number] [address] [place] [id number] [facility] CONSULT PROGon 10-27-2023 CONSULT PROG HNO ID: [id number] Author: NAUN COUCH MD Service: Nephrology Author [...] amputation admitted from home who presented to [facility] with complaints of worsening shortness of breath, bilateral lower extremity edema and ~ 10lb weight gain in the last few weeks. Patient reports multiple hospital admissions in 2023 at [facility] in [place] for fluid overload. He states he usually [...] feeling b (more content not included)... Normal [facility] Comprehensive metabolic 2000 panelon 10-27-2023 Albumin [Mass/Vol] 3.3 g/dL Low 3.9-4.9 [facility] Comment on above: Order Comment: Speci men Type: BLOOD SPECIMEN Ordering Facility: [facility] Address: [address] [place] [address] Performed By: #### 1 9123-9, 65635-9 #### [facility] CLIA [id number] [address] [place] [address] [place] ALP [Catalytic activity/Vol] 88 U/L Normal 38-113 [facility] Comment on above: Order Comment: Speci men Type: BLOOD SPECIMEN Ordering Facility: [facility] Address: [address] [place] [address] Performed By: #### 1 9123-9, 32012-9 #### [facility] CLIA [id number] [address] [place] [address] [place] ALT [Catalytic activity/Vol] 11 U/L Normal 10-54 [facility] Comment on above: Order Comment: Speci men Type: BLOOD SPECIMEN Ordering Facility: [facility] Address: [address] [place] [address] Performed By: #### 1 9123-9, 28043-2 #### [facility] CLIA [id number] [address] [place] [address] [place] Anion gap [Moles/Vol] 9 mmol/L Normal 9-18 [facility] Comment on above: Order Comment: Speci men Type: BLOOD SPECIMEN Ordering Facility: [facility] Address: [address] [place] [address] Performed By: #### 1 9123-9, 85799-6 #### [facility] CLIA [id number] [address] [place] [address] [place] AST [Catalytic activity/Vol] 11 U/L Low 14-40 [facility] Comment on above: Order Comment: Speci men Type: BLOOD SPECIMEN Ordering Facility: [facility] Address: [address] [place] [address] Performed By: #### 1 91239, 72547-9 #### [facility] CLIA [id number] [address] [place] [address] [place] Bilirubin [Mass/Vol] 0.6 mg/dL Normal 0.2-1.3 [facility] Comment on above: Order Comment: Speci men Type: BLOOD SPECIMEN Ordering Facility: [facility] Address: [address] [place] [address] Performed By: #### 1 9123-9, #### [facility] CLIA [id number] [address] [place] [address] [place] Calcium [Mass/Vol] 9.1 mg/dL Normal 8.5-10.2 [facility] Comment on above: Order Comment: Speci men Type: BLOOD SPECIMEN Ordering Facility: [facility] Address: [address] [place] [address] Performed By: #### 1 9123-9, #### [facility] CLIA [id number] [address] [place] [address] [place] Chloride [Moles/Vol] 100 mmol/L Normal 97-105 [facility] Comment on above: Order Comment: Speci men Type: BLOOD SPECIMEN Ordering Facility: [facility] Address: [address] [place] [address] Performed By: #### 1 9123-9, #### [facility] CLIA [id number] [address] [place] [address] [place] CO2 [Moles/Vol] 35 mmol/L High 22-30 [facility] Comment on above: Order Comment: Speci men Type: BLOOD SPECIMEN Ordering Facility: [facility] Address: [address] [place] [address] Performed By: #### 1 9123-9, 24349-8 #### [facility] CLIA [id number] [address] [place] [address] [place] Creatinine [Mass/Vol] 1.62 mg/dL High 0.73-1.22 [facility] Comment on above: Order Comment: Speci men Type: BLOOD SPECIMEN Ordering Facility: [facility] Address: [address] [place] [address] Performed By: #### 1 9123-9, 10026-8 #### [facility] CLIA [id number] [address] [place] [address] [place] Creatinine and Glomerular filtration rate.predicted panel (S/P/Bld) 47 mL/min/1.73m??? Low >=60 [facility] Comment on above: Order Comment: [place] Type: BLOOD SPECIMEN Ordering Facility: [facility] Address: [address] [place] [address] Result Comment: Meredith mated Glomerular Filtration Rate [...] actual GFR. Performed By: #### 1 9123-9, 09424-7 #### [facility] CLIA [id number] [place] [address] [place] Glucose [Mass/Vol] 145 mg/dL High 74-99 [facility] Comment on above: Order Comment: [place] Type: BLOOD SPECIMEN Ordering Facility: [facility] Address: [address] [place] [address] Result Comment: The [place] Diabetes Association (ADA) provides guidance for cutoff [...] Standards of Medical Care in Diabetes 2016, [place] [employer]. Diabetes Care. 2016.39(Suppl 1). Performed By: #### 1 9123-9, 81211-3 #### [facility] CLIA [id number] [address] [place] [address] [place] Potassium [Moles/Vol] 4.1 mmol/L Normal 3.7-5.1 [facility] Comment on above: Order Comment: Speci men Type: BLOOD SPECIMEN Ordering Facility: [facility] Address: [address] [place] [address] Performed By: #### 1 9123-9, 00789-8 #### [facility] CLIA [id number] [address] [place] [address] [place] Protein [Mass/Vol] 6.3 g/dL Normal 6.3-8.0 [facility] Comment on above: Order Comment: Speci men Type: BLOOD SPECIMEN Ordering Facility: [facility] Address: [address] [place] [address] Performed By: #### 1 9123-9, 24056-2 #### [facility] CLIA [id number] [address] [place] [address] [place] Sodium [Moles/Vol] 144 mmol/L Normal 136-144 [facility] Comment on above: Order Comment: Speci men Type: BLOOD SPECIMEN Ordering Facility: [facility] Address: [address] [place] [address] Performed By: #### 1 9123-9, 99941-5 #### [facility] CLIA [id number] [address] [place] [address] [place] Urea nitrogen [Mass/Vol] 40 mg/dL High 9-24 [facility] Comment on above: Order Comment: Speci men Type: BLOOD SPECIMEN Ordering Facility: [facility] Address: [address] [place] [address] Performed By: #### 1 9123-9, 39164-6 #### [facility] CLIA [id number] [address] [place] [address] [place] Magnesium SerPl-mCncon 10-26 Magnesium [Mass/Vol] 1.9 mg/dL Normal 1.7-2.3 [facility] Comment on above: Order Comment: Speci men Type: BLOOD SPECIMEN Ordering Facility: [facility] Address: [address] [place] [address] Performed By: #### 1 9123-9, 16984-2 #### [facility] CLIA [id number] [address] [place] [id number] [place] Phosphate SerPl-mCncon 10-26 Phosphate [Mass/Vol] 4.1 mg/dL Normal 2.7-4.8 [facility] Comment on above: Order Comment: Speci men Type: BLOOD SPECIMEN Ordering Facility: [facility] Address: [address] [place] [address] Performed By: #### 1 9123-9, 80889-4 #### [facility] CLIA [id number] [address] [place] [id number] [place] THERAPY NTon 10-27-2023 THERAPY NT HNO ID: [id number] Author: VELIA HARGROVE RRT Service: Respiratory Therapy [...] TIME: 10:12 PM PAGER/CONTACT #: Vocshahbaz Normal [facility] CBC W Auto Differential pane l (Bld)on 10-26-2023 Basophils (Bld) [#/Vol] 0.04 10*3/uL Normal <0.11 [facility] Comment on above: Order Comment: Speci men Type: BLOOD SPECIMEN Ordering Facility: [facility] Address: [address] [place] [address] Performed By: #### P TTAC #### [facility] CLIA [id number] [address] [place] [address] [place] Basophils/100 WBC (Bld) 0.6 % Normal [facility] Comment on above: Order Comment: Speci men Type: BLOOD SPECIMEN Ordering Facility: [facility] Address: [address] [place] [address] Performed By: #### P TTAC #### [facility] CLIA [id number] [address] [place] [address] [place] Differential cell count method Nom (Bld) Auto Normal [facility] Comment on above: Order Comment: Speci men Type: BLOOD SPECIMEN Ordering Facility: [facility] Address: [address] [place] [address] Performed By: #### P TTAC #### [facility] CLIA [id number] [address] [place] [address] [place] Eosinophils (Bld) [#/Vol] 0.29 10*3/uL Normal <0.46 [facility] Comment on above: Order Comment: Speci men Type: BLOOD SPECIMEN Ordering Facility: [facility] Address: [address] [place] [address] Performed By: #### P TTAC #### [facility] CLIA [id number] [address] [place] [address] [place] Eosinophils/100 WBC (Bld) 4.5 % Normal [facility] Comment on above: Order Comment: Speci men Type: BLOOD SPECIMEN Ordering Facility: [facility] Address: [address] [place] [address] Performed By: #### P TTAC #### [facility] CLIA [id number] [address] [place] [address] [place] Erythrocyte distribution width (RBC) [Ratio] 16.3 % High 11.5-15.0 [facility] Comment on above: Order Comment: Speci men Type: BLOOD SPECIMEN Ordering Facility: [facility] Address: [address] [place] [address] Performed By: #### P TTAC #### [facility] CLIA [id number] [address] [place] [address] [place] Hematocrit (Bld) [Volume fraction] 38.8 % Low 39.0-51.0 [facility] Comment on above: Order Comment: Speci men Type: BLOOD SPECIMEN Ordering Facility: [facility] Address: [address] [place] [address] Performed By: #### P TTAC #### [facility] CLIA [id number] [address] [place] [address] [place] Hemoglobin (Bld) [Mass/Vol] 11.6 g/dL Low 13.0-17.0 [facility] Comment on above: Order Comment: Speci men Type: BLOOD SPECIMEN Ordering Facility: [facility] Address: [address] [place] [address] Performed By: #### P TTAC #### [facility] CLIA [id number] [address] [place] [address] [place] Immature granulocytes (Bld) [#/Vol] 0.06 10*3/uL Normal <0.10 [facility] Comment on above: Order Comment: Speci men Type: BLOOD SPECIMEN Ordering Facility: [facility] Address: [address] [place] [address] Performed By: #### P TTAC #### [facility] CLIA [id number] [address] [place] [address] [place] Immature granulocytes/100 WBC (Bld) 0.9 % Normal [facility] Comment on above: Order Comment: Speci men Type: BLOOD SPECIMEN Ordering Facility: [facility] Address: [address] [place] [address] Performed By: #### P TTAC #### [facility] CLIA [id number] [address] [place] [address] [place] Lymphocytes (Bld) [#/Vol] 0.94 10*3/uL Low 1.00-4.00 [facility] Comment on above: Order Comment: Speci men Type: BLOOD SPECIMEN Ordering Facility: [facility] Address: [address] [place] [address] Performed By: #### P TTAC #### [facility] CLIA [id number] [address] [place] [address] [place] Lymphocytes/100 WBC (Bld) 14.5 % Normal [facility] Comment on above: Order Comment: Speci men Type: BLOOD SPECIMEN Ordering Facility: [facility] Address: [address] [place] [address] Performed By: #### P TTAC #### [facility] CLIA [id number] [address] [place] [address] [place] [facility] MCH (RBC) [Entitic mass] 27.0 pg Normal 26.0-34.0 [facility] Comment on above: Order Comment: Speci men Type: BLOOD SPECIMEN Ordering Facility: [facility] Address: [address] [place] [address] Performed By: #### P TTAC #### [facility] CLIA [id number] [address] [place] [address] [place] MCHC (RBC) [Mass/Vol] 29.9 g/dL Low 30.5-36.0 [facility] Comment on above: Order Comment: Speci men Type: BLOOD SPECIMEN Ordering Facility: [facility] Address: [address] [place] [address] Performed By: #### P TTAC #### [facility] CLIA [id number] [address] [place] [address] [place] MCV (RBC) [Entitic vol] 90.2 fL Normal 80.0-100.0 [facility] Comment on above: Order Comment: Speci men Type: BLOOD SPECIMEN Ordering Facility: [facility] Address: [address] [place] [address] Performed By: #### P TTAC #### [facility] CLIA [id number] [address] [place] [address] Monocytes (Bld) [#/Vol] 0.71 10*3/uL Normal <0.87 [facility] Comment on above: Order Comment: Speci men Type: BLOOD SPECIMEN Ordering Facility: [facility] Address: [address] [place] [address] Performed By: #### P TTAC #### [facility] CLIA [id number] [address] [place] [address] [place] Monocytes/100 WBC (Bld) 10.9 % Normal [facility] Comment on above: Order Comment: Speci men Type: BLOOD SPECIMEN Ordering Facility: [facility] Address: [address] [place] [address] Performed By: #### P TTAC #### [facility] CLIA [id number] [address] [place] [address] [place] Neutrophils (Bld) [#/Vol] 4.45 10*3/uL Normal 1.45-7.50 [facility] Comment on above: Order Comment: Speci men Type: BLOOD SPECIMEN Ordering Facility: [facility] Address: [address] [place] [address] Performed By: #### P TTAC #### [facility] CLIA [id number] [address] [place] [address] [place] Neutrophils/100 WBC (Bld) 68.6 % Normal [facility] Comment on above: Order Comment: Speci men Type: BLOOD SPECIMEN Ordering Facility: [facility] Address: [address] [place] [address] Performed By: #### P TTAC #### [facility] CLIA [id number] [address] [place] [address] [place] Nucleated RBC (Bld) [#/Vol] 10*3/uL Normal <0.01 [facility] Comment on above: Order Comment: Speci men Type: BLOOD SPECIMEN Ordering Facility: [facility] Address: [address] [place] [address] Performed By: #### P TTAC #### [facility] CLIA [id number] [address] [place] [address] [place] Nucleated RBC/100 WBC (Bld) [Ratio] 0.0 /100 WBC Normal [facility] Comment on above: Order Comment: Speci men Type: BLOOD SPECIMEN Ordering Facility: [facility] Address: [address] [place] [address] Performed By: #### P TTAC #### [facility] CLIA [id number] [address] [place] [address] [place] Platelet mean volume (Bld) [Entitic vol] 9.0 fL Normal 9.0-12.7 [facility] Comment on above: Order Comment: Speci men Type: BLOOD SPECIMEN Ordering Facility: [facility] Address: [address] [place] [address] Performed By: #### P TTAC #### [facility] CLIA [id number] [address] [place] [address] [place] Platelets (Bld) [#/Vol] 247 10*3/uL Normal 150-400 [facility] Comment on above: Order Comment: Speci men Type: BLOOD SPECIMEN Ordering Facility: [facility] Address: [address] [place] [address] Performed By: #### P TTAC #### [facility] CLIA [id number] [address] [place] [address] [place] RBC (Bld) [#/Vol] 4.30 10*6/uL Normal 4.20-6.00 [facility] Comment on above: Order Comment: Speci men Type: BLOOD SPECIMEN Ordering Facility: [facility] Address: [address] [place] [address] Performed By: #### P TTAC #### [facility] CLIA [id number] [address] [place] [address] [place] WBC (Bld) [#/Vol] 6.49 10*3/uL Normal 3.70-11.00 [facility] Comment on above: Order Comment: Speci men Type: BLOOD SPECIMEN Ordering Facility: [facility] Address: [address] [place] [address] Performed By: #### P TTAC #### [facility] CLIA [id number] [address] [place] [address] OF [place] CONSULTon 10-26-2023 CONSULT HNO ID: [id number] Author: STEFANIE BARRETT MD Service: Pulmonary Disease [...] [employer] (more content not included)... [facility] CONSULT PROGon 10-26-2023 CONSULT PROG HNO ID: [id number] Author: GORDO BUTLER APRN.CNP Service: Cardiovascular Medicine Author Type: Nurse Practitioner Type: Consult Progress Note Filed: 10/26/2023 14:03 Note Text: [facility] CARDIOVASCULAR MEDICINE PROGRESS NOTE (Template ID [id number]) SERVICE DATE: 10/26/2023 SERVICE TIME: 1115 PRIMARY [...] -- 10/25/23 0015 activity - [place] ([place]) 10/24/23 0145 activity - [place] VTE Prophylaxis: VTE prophylaxis appropriate ASSESSMENT [...] DATE: October 26, 2023 TIME: 1:52 PM [facility] CONSULT PROG HNO ID: [id number] Author: NAUN COUCH MD Service: Nephrology Author [...] amputation admitted from home who presented to [facility] with complaints of worsening shortness of breath, bilateral lower extremity edema and ~ 10lb weight gain in the last few weeks. Patient reports multiple hospital admissions in 2023 at [facility] in [place] for fluid overload. He states he usually [...] mg TID More stable, feeling better -[employer]N [employer] (more content not included)... Normal [facility] Magnesium SerPl-mCncon 10-25 Magnesium [Mass/Vol] 2.1 mg/dL Normal 1.7-2.3 [facility] Comment on above: Order Comment: [place] Type: BLOOD SPECIMEN Ordering Facility: [facility] Address: [address] [place] [address] Performed By: #### 1 9123-9, 30387-0 #### [facility] CLIA [id number] [place] [address] [place] Renal function 2000 panelon 10-26-2023 Albumin [Mass/Vol] 3.3 g/dL Low 3.9-4.9 [facility] Comment on above: Order Comment: [place] Type: BLOOD SPECIMEN Ordering Facility: [facility] Address: [address] [place] [address] Performed By: #### 1 9123-9, 06968-5 #### [facility] CLIA [id number] [address] [place] [address] [place] Anion gap [Moles/Vol] 15 mmol/L Normal 9-18 [facility] Comment on above: Order Comment: Speci men Type: BLOOD SPECIMEN Ordering Facility: [facility] Address: [address] [place] [address] Performed By: #### 1 9123-9, 72399-4 #### [facility] CLIA [id number] [address] [place] [address] [place] Calcium [Mass/Vol] 9.1 mg/dL Normal 8.5-10.2 [facility] Comment on above: Order Comment: Speci men Type: BLOOD SPECIMEN Ordering Facility: [facility] Address: [address] [place] [address] Performed By: #### 1 239, #### [facility] CLIA [id number] [address] [place] [address] [place] Chloride [Moles/Vol] 101 mmol/L Normal 97-105 [facility] Comment on above: Order Comment: Speci men Type: BLOOD SPECIMEN Ordering Facility: [facility] Address: [address] [place] [address] Performed By: #### 1 4223-9, 91462-1 #### [facility] CLIA [id number] [address] [place] [address] [place] CO2 [Moles/Vol] 30 mmol/L Normal 22-30 [facility] Comment on above: Order Comment: Speci men Type: BLOOD SPECIMEN Ordering Facility: [facility] Address: [address] [place] [address] Performed By: #### 1 9123-9, 29749-7 #### [facility] CLIA [id number] [address] [place] [address] [place] Creatinine [Mass/Vol] 1.84 mg/dL High 0.73-1.22 [facility] Comment on above: Order Comment: Speci men Type: BLOOD SPECIMEN Ordering Facility: [facility] Address: [address] [place] [address] Performed By: #### 1 3923-9, 42332-8 #### [facility] CLIA [id number] [address] [place] [address] [place] Creatinine and Glomerular filtration rate.predicted panel (S/P/Bld) 40 mL/min/1.73m??? Low >=60 [facility] Comment on above: Order Comment: [place] Type: BLOOD SPECIMEN Ordering Facility: [facility] Address: [address] [place] [address] Result Comment: Meredith mated Glomerular Filtration Rate [...] actual GFR. Performed By: #### 1 9123-9, 15983-7 #### [facility] CLIA [id number] [place] [address] [place] Glucose [Mass/Vol] 189 mg/dL High 74-99 [facility] Comment on above: Order Comment: [place] Type: BLOOD SPECIMEN Ordering Facility: [facility] Address: [address] [place] [address] Result Comment: The [place] Diabetes Association (ADA) provides guidance for cutoff [...] Standards of Medical Care in Diabetes 2016, [place] Diabetes [employer]. Diabetes Care. 2016.39(Suppl 1). Performed By: #### 1 9123-9, 78075-8 #### [facility] CLIA [id number] [address] [place] [id number] [place] Phosphate [Mass/Vol] 3.9 mg/dL Normal 2.7-4.8 [facility] Comment on above: Order Comment: Speci men Type: BLOOD SPECIMEN Ordering Facility: [facility] Address: [address] [place] [address] Performed By: #### 1 9123-9, 37854-0 #### [facility] CLIA [id number] [address] [place] [address] [place] Potassium [Moles/Vol] 4.3 mmol/L Normal 3.7-5.1 [facility] Comment on above: Order Comment: Speci men Type: BLOOD SPECIMEN Ordering Facility: [facility] Address: [address] [place] [address] Performed By: #### 1 9123-9, 44183-7 #### [facility] CLIA [id number] [address] [place] [address] [place] Sodium [Moles/Vol] 146 mmol/L High 136-144 [facility] Comment on above: Order Comment: Speci men Type: BLOOD SPECIMEN Ordering Facility: [facility] Address: [address] [place] [address] Performed By: #### 1 9123-9, 88077-6 #### [facility] CLIA [id number] [address] [place] [address] [place] Urea nitrogen [Mass/Vol] 48 mg/dL High 9-24 [facility] Comment on above: Order Comment: Speci men Type: BLOOD SPECIMEN Ordering Facility: [facility] Address: [address] [place] [address] Performed By: #### 1 9123-9, 19933-3 #### [facility] CLIA [id number] [address] [place] [address] [place] ALLIED HEALTHon 10-25-2023 ALLIED HEALTH HNO ID: [id number] Author: CLARA HARDIN RT(Zarina) Service: Radiology Author [...] PATIENT PRESENTS WITH AN IMPLANTABLE OR ATTACHED SLEEVE SETTER: No RADIOLOGY DEPARTMENT: General X-ray: Exam(s) Completed: Chest X-Ray PERIPHERAL IV DATA: Not applicable SIGNED BY: RT Raffy(R) October 25, 2023 4:59 AM [facility] CASE MGT INIT CINDYon 2023 CASE MGT INIT [facility] HNO ID: [id number] Author: BUTCH WETZEL RN Service: ? Author Type: Registered Nurse Type: Care Mgt Initial Assessment Filed: 10/25/2023 09:57 Note Text: CARE MANAGEMENT: ASSESSMENT AND DISCHARGE PLAN SERVICE DATE: October 25, 2023 SERVICE TIME: 9:55 AM PCP: Mounika Brooke MD, MD Primary Contact: Extended Emergency Contact Information Primary Emergency Contact: DAVIN ESCOBAR [employer] Relation: Daughter Secondary Emergency Contact: Micah Lora [place] Relation: Son Admission Status: Inpatient Insurance Provider: [facility] Discharge Planning requested by: Per Department Practice Potential Transition Plans To Be Determined Advance Directives Current Advance Directive: 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[employer] Attempted to Assist with AD Completion: Yes [...] TIME: 9:54 AM CONTACT #: [phone] Normal [facility] CBC W Auto Differential pane l (Bld)on 10-25-2023 Basophils (Bld) [#/Vol] 0.03 10*3/uL Normal <0.11 [facility] Comment on above: Order Comment: Speci men Type: BLOOD SPECIMEN Ordering Facility: [facility] Address: [address] [place] [address] Performed By: #### 1 9923-9, 75735-8 #### [facility] CLIA [id number] [address] [place] [address] [place] Basophils/100 WBC (Bld) 0.4 % Normal [facility] Comment on above: Order Comment: Speci men Type: BLOOD SPECIMEN Ordering Facility: [facility] Address: [address] [place] [address] Performed By: #### 1 3023-9, #### [facility] CLIA [id number] [address] [place] [address] [place] Differential cell count method Nom (Bld) Auto Normal [facility] Comment on above: Order Comment: Speci men Type: BLOOD SPECIMEN Ordering Facility: [facility] Address: [address] [place] [address] Performed By: #### 1 23-9, #### [facility] CLIA [id number] [address] [place] [address] [place] Eosinophils (Bld) [#/Vol] 0.22 10*3/uL Normal <0.46 [facility] Comment on above: Order Comment: Speci men Type: BLOOD SPECIMEN Ordering Facility: [facility] Address: [address] [place] [address] Performed By: #### 1 84239, #### [facility] CLIA [id number] [address] [place] [address] [place] Eosinophils/100 WBC (Bld) 2.9 % Normal [facility] Comment on above: Order Comment: Speci men Type: BLOOD SPECIMEN Ordering Facility: [facility] Address: [address] [place] [address] Performed By: #### 1 9123-9, #### [facility] CLIA [id number] [address] [place] [address] [place] Erythrocyte distribution width (RBC) [Ratio] 16.5 % High 11.5-15.0 [facility] Comment on above: Order Comment: Speci men Type: BLOOD SPECIMEN Ordering Facility: [facility] Address: [address] [place] [address] Performed By: #### 1 91239, #### [facility] CLIA [id number] [address] [place] [address] [place] Hematocrit (Bld) [Volume fraction] 41.0 % Normal 39.0-51.0 [facility] Comment on above: Order Comment: Speci men Type: BLOOD SPECIMEN Ordering Facility: [facility] Address: [address] [place] [address] Performed By: #### 1 91239, #### [facility] CLIA [id number] [address] [place] [address] [place] Hemoglobin (Bld) [Mass/Vol] 12.1 g/dL Low 13.0-17.0 [facility] Comment on above: Order Comment: Speci men Type: BLOOD SPECIMEN Ordering Facility: [facility] Address: [address] [place] [address] Performed By: #### 1 9123-9, #### [facility] CLIA [id number] [address] [place] [address] [place] Immature granulocytes (Bld) [#/Vol] 0.04 10*3/uL Normal <0.10 [facility] Comment on above: Order Comment: Speci men Type: BLOOD SPECIMEN Ordering Facility: [facility] Address: [address] [place] [address] Performed By: #### 1 9123-04, #### [facility] CLIA [id number] [address] [place] [address] [place] Immature granulocytes/100 WBC (Bld) 0.5 % Normal [facility] Comment on above: Order Comment: Speci men Type: BLOOD SPECIMEN Ordering Facility: [facility] Address: [address] [place] [address] Performed By: #### 1 9123-04, #### [facility] CLIA [id number] [address] [place] [address] [place] Lymphocytes (Bld) [#/Vol] 0.80 10*3/uL Low 1.00-4.00 [facility] Comment on above: Order Comment: Speci men Type: BLOOD SPECIMEN Ordering Facility: [facility] Address: [address] [place] [address] Performed By: #### 1 9123-04, #### [facility] CLIA [id number] [address] [place] [address] [place] Lymphocytes/100 WBC (Bld) 10.6 % Normal [facility] Comment on above: Order Comment: Speci men Type: BLOOD SPECIMEN Ordering Facility: [facility] Address: [address] [place] [address] Performed By: #### 1 23, #### [facility] CLIA [id number] [address] [place] [address] [place] MCH (RBC) [Entitic mass] 26.8 pg Normal 26.0-34.0 [facility] Comment on above: Order Comment: Speci men Type: BLOOD SPECIMEN Ordering Facility: [facility] Address: [address] [place] [address] Performed By: #### 1 91239, 72084-7 #### [facility] CLIA [id number] [address] [place] [address] [place] MCHC (RBC) [Mass/Vol] 29.5 g/dL Low 30.5-36.0 [facility] Comment on above: Order Comment: Speci men Type: BLOOD SPECIMEN Ordering Facility: [facility] Address: [address] [place] [address] Performed By: #### 1 9123-9, #### [facility] CLIA [id number] [address] [place] [address] [place] MCV (RBC) [Entitic vol] 90.7 fL Normal 80.0-100.0 [facility] Comment on above: Order Comment: Speci men Type: BLOOD SPECIMEN Ordering Facility: [facility] Address: [address] [place] [address] Performed By: #### 1 9123-9, #### [facility] CLIA [id number] [address] [place] [address] [place] Monocytes (Bld) [#/Vol] 0.64 10*3/uL Normal <0.87 [facility] Comment on above: Order Comment: Speci men Type: BLOOD SPECIMEN Ordering Facility: [facility] Address: [address] [place] [address] Performed By: #### 1 9123-9, #### [facility] CLIA [id number] [address] [place] [address] [place] Monocytes/100 WBC (Bld) 8.5 % Normal [facility] Comment on above: Order Comment: Speci men Type: BLOOD SPECIMEN Ordering Facility: [facility] Address: [address] [place] [address] Performed By: #### 1 9123-9, #### [facility] CLIA [id number] [address] [place] [address] [place] Neutrophils (Bld) [#/Vol] 5.80 10*3/uL Normal 1.45-7.50 [facility] Comment on above: Order Comment: Speci men Type: BLOOD SPECIMEN Ordering Facility: [facility] Address: [address] [place] [address] Performed By: #### 1 9123-9, #### [facility] CLIA [id number] [address] [place] [address] [place] Neutrophils/100 WBC (Bld) 77.1 % Normal [facility] Comment on above: Order Comment: Speci men Type: BLOOD SPECIMEN Ordering Facility: [facility] Address: [address] [place] [address] Performed By: #### 1 91239, #### [facility] CLIA [id number] [address] [place] [address] [place] Nucleated RBC (Bld) [#/Vol] 10*3/uL Normal <0.01 [facility] Comment on above: Order Comment: Speci men Type: BLOOD SPECIMEN Ordering Facility: [facility] Address: [address] [place] [address] Performed By: #### 1 91239, #### [facility] CLIA [id number] [address] [place] [address] [place] Nucleated RBC/100 WBC (Bld) [Ratio] 0.0 /100 WBC Normal [facility] Comment on above: Order Comment: Speci men Type: BLOOD SPECIMEN Ordering Facility: [facility] Address: [address] [place] [address] Performed By: #### 1 91239, #### [facility] CLIA [id number] [address] [place] [address] [place] Platelet mean volume (Bld) [Entitic vol] 8.6 fL Low 9.0-12.7 [facility] Comment on above: Order Comment: Speci men Type: BLOOD SPECIMEN [facility] [facility] Address: [address] [place] [address] Performed By: #### 1 9123-9, #### [facility] CLIA [id number] [address] [place] [address] [place] Platelets (Bld) [#/Vol] 235 10*3/uL Normal 150-400 [facility] Comment on above: Order Comment: Speci men Type: BLOOD SPECIMEN [facility] Address: [address] [place] [address] Performed By: #### 1 9123-9, 82498-2 #### [facility] CLIA [id number] [address] [place] [address] [place] [facility] RBC (Bld) [#/Vol] 4.52 10*6/uL Normal 4.20-6.00 [facility] Comment on above: Order Comment: Speci men Type: BLOOD SPECIMEN [facility] Address: [address] [place] [address] Performed By: #### 1 9123-9, 44964-5 #### [facility] CLIA [id number] [address] [place] [address] WBC (Bld) [#/Vol] 7.53 10*3/uL Normal 3.70-11.00 [facility] Comment on above: Order Comment: Speci men Type: BLOOD SPECIMEN [facility] Address: [address] [place] [address] Performed By: #### 1 9123-9, 06608-7 #### [facility] CLIA [id number] [address] [place] [address] ECHOon 10-25-2023 Echocardiography Echocardiography Report: Transthoracic Echo [facility] Date of service: 10/25/2023 2:47:07 PM [...] * * Final * * * CC [employer] [facility] Image : [id number] micsSISUID Normal [facility] Gas and Carbon monoxide pane l (BldV)on 10-25-2023 Base excess Calc (BldV) [Moles/Vol] 6 mmol/L High 0-2 [facility] Comment on above: Order Comment: [place] Type: BLOOD SPECIMEN [facility] Address: [address] [place] [address] Performed By: #### P TTAC #### [facility] CLIA [id number] [address] [place] [address] [place] Body temperature 98.78 [degF] Normal [facility] Comment on above: Order Comment: [place] Type: BLOOD SPECIMEN [facility] Address: [address] [place] [address] Performed By: #### P TTAC #### [facility] CLIA [id number] [address] [place] [address] [place] Calcium.ionized (Bld) [Mass/Vol] 1.15 mmol/L Normal 1.08-1.30 [facility] Comment on above: Order Comment: [place] Type: BLOOD SPECIMEN [facility] Address: [address] [place] [address] Performed By: #### P TTAC #### [facility] CLIA [id number] [address] [place] [address] [place] Calcium.ionized adjusted to pH 7.4 (BldA) [Moles/Vol] 1.12 mmol/L Normal 1.08-1.30 [facility] Comment on above: Order Comment: Speci men Type: BLOOD SPECIMEN [facility] Address: [address] [place] [address] Performed By: #### P TTAC #### [facility] CLIA [id number] [address] [place] [address] [place] Carboxyhemoglobin (BldV) [Mass fraction] 2.7 % High 0.0-2.0 [facility] Comment on above: Order Comment: Speci men Type: BLOOD SPECIMEN [facility] Address: [address] [place] [address] Result Comment: Carb oxyhemoglobin Reference Range for Smokers: 2.0-8.0% Performed By: #### P TTAC #### [facility] CLIA [id number] [address] [place] [address] [place] Chloride [Moles/Vol] 105 mmol/L Normal 97-105 [facility] Comment on above: Order Comment: Speci men Type: BLOOD SPECIMEN [facility] Address: [address] [place] [address] Performed By: #### P TTAC #### [facility] CLIA [id number] [address] [place] [address] [place] CO2 (BldV) [Partial pressure] 61 mm[Hg] High 42-55 [facility] Comment on above: Order Comment: Speci men Type: BLOOD SPECIMEN [facility] Address: [address] [place] [address] Performed By: #### P TTAC #### [facility] CLIA [id number] [address] [place] [address] [place] CO2 adjusted to patient's actual temperature (BldV) [Partial pressure] Normal [facility] Comment on above: Order Comment: Speci men Type: BLOOD SPECIMEN [facility] Address: [address] [place] [address] Performed By: #### P TTAC #### [facility] CLIA [id number] [address] [place] [address] [place] FIO2 45 % Normal [facility] Comment on above: Order Comment: Speci men Type: BLOOD SPECIMEN [facility] Address: [address] [place] [address] Performed By: #### P TTAC #### [facility] CLIA [id number] [address] [place] [address] [place] Glucose [Mass/Vol] 152 mg/dL High 60-105 [facility] Comment on above: Order Comment: Speci men Type: BLOOD SPECIMEN [facility] Address: [address] [place] [address] Performed By: #### P TTAC #### [facility] CLIA [id number] [address] [place] [address] [place] HCO3 (Bld) [Moles/Vol] 33 mmol/L High 24-28 [facility] Comment on above: Order Comment: Speci men Type: BLOOD SPECIMEN [facility] Address: [address] [place] [address] Performed By: #### P TTAC #### [facility] CLIA [id number] [address] [place] [address] [place] Hematocrit (Bld) [Volume fraction] 38.3 % Low 39.0-51.0 [facility] Comment on above: Order Comment: Speci men Type: BLOOD SPECIMEN [facility] Address: [address] [place] [address] Performed By: #### P TTAC #### [facility] CLIA [id number] [address] [place] [address] [place] Hemoglobin (Bld) [Mass/Vol] 12.4 g/dL Low 13.0-17.0 [facility] Comment on above: Order Comment: Speci men Type: BLOOD SPECIMEN [facility] Address: [address] [place] [address] Performed By: #### P TTAC #### [facility] CLIA [id number] [address] [place] [address] [place] Lactate [Moles/Vol] 0.9 mmol/L Normal 0.5-2.2 [facility] Comment on above: Order Comment: Speci men Type: BLOOD SPECIMEN [facility] Address: [address] [place] [address] Performed By: #### P TTAC #### [facility] CLIA [id number] [address] [place] [address] [place] Methemoglobin (Bld) [Mass fraction] 1.2 % Normal 0.0-1.5 [facility] Comment on above: Order Comment: Speci men Type: BLOOD SPECIMEN [facility] Address: [address] [place] [address] Performed By: #### P TTAC #### [facility] CLIA [id number] [address] [place] [address] [place] O2 THERAPY Positive Normal [facility] Comment on above: Order Comment: Speci men Type: BLOOD SPECIMEN [facility] Address: [address] [place] [address] Performed By: #### P TTAC #### [facility] CLIA [id number] [address] [place] [address] [place] Oxygen (BldV) [Partial pressure] 107 mm[Hg] High 35-45 [facility] Comment on above: Order Comment: Speci men Type: BLOOD SPECIMEN [facility] Address: [address] [place] [address] Performed By: #### P TTAC #### [facility] CLIA [id number] [address] [place] [address] [place] Oxygen adjusted to patient's actual temperature (BldV) [Partial pressure] Normal [facility] Comment on above: Order Comment: Speci men Type: BLOOD SPECIMEN [facility] Address: [address] [place] [address] Performed By: #### P TTAC #### [facility] CLIA [id number] [address] [place] [address] [place] Oxygen saturation in Venous blood 98 % High 60-85 [facility] Comment on above: Order Comment: Speci men Type: BLOOD SPECIMEN [facility] Address: [address] [place] [address] Performed By: #### P TTAC #### [facility] CLIA [id number] [address] [place] [address] [place] Oxyhemoglobin (BldV) [Mass fraction] 94 % High 60-85 [facility] Comment on above: Order Comment: Speci men Type: BLOOD SPECIMEN [facility] Address: [address] [place] [address] Performed By: #### P TTAC #### [facility] CLIA [id number] [address] [place] [address] [place] pH (BldV) 7.35 [pH] Normal 7.32-7.42 [facility] Comment on above: Order Comment: Speci men Type: BLOOD SPECIMEN [facility] Address: [address] [place] [address] Performed By: #### P TTAC #### [facility] CLIA [id number] [address] [place] [address] [place] pH adjusted to patient's actual temperature (BldV) Normal [facility] Comment on above: Order Comment: Speci men Type: BLOOD SPECIMEN [facility] Address: [address] [place] [address] Performed By: #### P TTAC #### [facility] IA [id number] [address] [place] [address] [place] Potassium [Moles/Vol] 4.1 mmol/L Normal 3.5-5.0 [facility] Comment on above: Order Comment: Speci men Type: BLOOD SPECIMEN [facility] Address: [address] [place] [address] Performed By: #### P TTAC #### [facility] CLIA [id number] [address] [place] [address] [place] Sodium [Moles/Vol] 140 mmol/L Normal 136-144 [facility] Comment on above: Order Comment: Speci men Type: BLOOD SPECIMEN [facility] Address: [address] [place] [address] Performed By: #### P TTAC #### [facility] CLIA [id number] [place] HISTORY PHYSICALon HISTORY PHYSICAL HNO ID: [id number] Author: ANUPAMA ALFRED MD Service: Critical Care Author Type: Nurse Practitioner Type: H&P Filed: 10/25/2023 03:12 Note Text: Attestation signed by Anupama Alfred MD at 10/25/2023 3:12 AM [facility] STAFF PHYSICIAN NOTE OF PERSONAL INVOLVEMENT IN [...] of brielle (more content not included)... Normal [facility] Lipid 1996 panelon 4 Cholesterol [Mass/Vol] 104 mg/dL Normal <200 [facility] Comment on above: Order Comment: [place] Type: BLOOD SPECIMEN [facility] Address: [address] [place] [address] Result Comment: <200 mg/dL, Desirable 200-239 mg/dL, Borderline high >239 mg/dL, High Performed By: #### 1 9123-9, 52028-1 #### [facility] CLIA [id number] [address] [place] [address] [place] Cholesterol in HDL [Mass/Vol] 61 mg/dL Normal >39 [facility] Comment on above: Order Comment: [place] Type: BLOOD SPECIMEN [facility] Address: [address] [place] [address] Result Comment: 40-5 9 mg/dL, Acceptable >59 mg/dL, High: Negative risk factor for coronary heart disease <40 mg/dL, Low: Positive risk factor for coronary heart disease Performed By: #### 1 9123-9, 90692-7 #### [facility] CLIA [id number] [address] [place] [address] [place] Cholesterol in LDL [Mass/Vol] 33 mg/dL Normal <100 [facility] Comment on above: Order Comment: [place] Type: BLOOD SPECIMEN [facility] Address: [address] [place] [address] Result Comment: <100 mg/dL, Optimal 100-129 mg/dL, Near optimal/above optimal 130-159 mg/dL, Borderline high 160-189 mg/dL, High >189 mg/dL, Very high Secondary prevention optimal LDL Cholesterol levels are recommended to be < 70 mg/dL Performed By: #### 1 9, 97626-8 #### [facility] CLIA [id number] [address] [place] [address] Cholesterol in LDL/Cholesterol in HDL [Mass ratio] 0.54 {ratio} Normal <2.54 [facility] Comment on above: Order Comment: [place] Type: BLOOD SPECIMEN [facility] Address: [address] [place] [address] Result Comment: Refe rence: 1. National Cholesterol Education Program ATP III Guideline At-A-Glance Quick Desk Reference: National Heart, Lung, and Blood Alborn. National Institutes of Health. 2001: NIH Publication No. 01-3305. 2. An International Atherosclerosis Society position paper: global recommendations for the management of dyslipidemia: executive summary, Atherosclerosis. 2014: 232(2):410-413. Performed By: #### 1 91239, 63636-5 #### [facility] CLIA [id number] [address] [place] [address] [place] Cholesterol in VLDL [Mass/Vol] 10 mg/dL Normal <30 [facility] Comment on above: Order Comment: [place] Type: BLOOD SPECIMEN [facility] Address: [address] [place] [address] Performed By: #### 1 9123-9, 85247-5 #### [facility] CLIA [id number] [address] [place] [address] [place] Cholesterol non HDL [Mass/Vol] 43 mg/dL Normal <130 [facility] Comment on above: Order Comment: Speci men Type: BLOOD SPECIMEN [facility] Address: [address] [place] [address] Result Comment: <130 mg/dL, Optimal 130-159 mg/dL, Near optimal/above optimal 160-189 mg/dL, Borderline high 190-219 mg/dL, High >219 mg/dL, Very high Secondary prevention optimal non HDL Cholesterol levels are recommended to be <100 mg/dL Performed By: #### 1 9123-9, 24382-5 #### [facility] CLIA [id number] [address] [place] [address] [place] Cholesterol.total/Ch olesterol in HDL [Mass ratio] 1.70 {ratio} Normal <5.10 [facility] Comment on above: Order Comment: Speci men Type: BLOOD SPECIMEN [facility] Address: [address] [place] [address] Performed By: #### 1 9123-9, 15733-6 #### [facility] CLIA [id number] [address] [place] [address] [place] FASTING TIME 12 hrs Normal [facility] Comment on above: Order Comment: Speci men Type: BLOOD SPECIMEN [facility] Address: [address] [place] [address] Performed By: #### 1 9123-9, 13889-5 #### [facility] CLIA [id number] [address] [place] [address] [place] Triglyceride [Mass/Vol] 52 mg/dL Normal <150 [facility] Comment on above: Order Comment: Speci men Type: BLOOD SPECIMEN [facility] Address: [address] [place] [address] Result Comment: <150 mg/dL, Normal 150-199 mg/dL, Borderline high 200-499 mg/dL, High >499 mg/dL, Very high Performed By: #### 1 9123-9, 12354-8 #### [facility] CLIA [id number] [address] [place] [address] [place] Magnesium SerPl-mCncon 10-24 Magnesium [Mass/Vol] 2.0 mg/dL Normal 1.7-2.3 [facility] Comment on above: Order Comment: Speci men Type: BLOOD SPECIMEN [facility] Address: [address] [place] [address] Performed By: #### 1 9123-9, 28605-3 #### [facility] CLIA [id number] [address] [place] [address] [place] Renal function 2000 panelon 10-25-2023 Albumin [Mass/Vol] 3.4 g/dL Low 3.9-4.9 [facility] Comment on above: Order Comment: Speci men Type: BLOOD SPECIMEN [facility] Address: [address] [place] [address] Performed By: #### 1 9123-9, 80394-2 #### [facility] CLIA [id number] [address] [place] [address] [place] Anion gap [Moles/Vol] 10 mmol/L Normal 9-18 [facility] Comment on above: Order Comment: Speci men Type: BLOOD SPECIMEN [facility] Address: [address] [place] [address] Performed By: #### 1 9123-9, 04714-1 #### [facility] CLIA [id number] [address] [place] [address] [place] Calcium [Mass/Vol] 9.1 mg/dL Normal 8.5-10.2 [facility] Comment on above: Order Comment: Speci men Type: BLOOD SPECIMEN [facility] Address: [address] [place] [address] Performed By: #### 1 9123-9, 15984-4 #### [facility] CLIA [id number] [address] [place] [address] [place] Chloride [Moles/Vol] 102 mmol/L Normal 97-105 [facility] Comment on above: Order Comment: Speci men Type: BLOOD SPECIMEN [facility] Address: [address] [place] [address] Performed By: #### 1 9123-9, 15784-6 #### [facility] CLIA [id number] [address] [place] [address] [place] CO2 [Moles/Vol] 31 mmol/L High 22-30 [facility] Comment on above: Order Comment: Speci men Type: BLOOD SPECIMEN [facility] Address: [address] [place] [address] Performed By: #### 1 9123-9, 09727-2 #### [facility] CLIA [id number] [address] [place] [address] [place] Creatinine [Mass/Vol] 1.89 mg/dL High 0.73-1.22 [facility] Comment on above: Order Comment: Speci men Type: BLOOD SPECIMEN [facility] Address: [address] [place] [address] Performed By: #### 1 9123-9, 88953-7 #### [facility] CLIA [id number] [address] [place] [address] [place] Creatinine and Glomerular filtration rate.predicted panel (S/P/Bld) 39 mL/min/1.73m??? Low >=60 [facility] Comment on above: Order Comment: Speci men Type: BLOOD SPECIMEN [facility] Address: [address] [place] [address] Result Comment: Meredith mated Glomerular Filtration Rate [...] actual GFR. Performed By: #### 1 9123-9, 45216-8 #### [facility] CLIA [id number] [place], [place] [address] [place] Glucose [Mass/Vol] 149 mg/dL High 74-99 [facility] Comment on above: Order Comment: Speci men Type: BLOOD SPECIMEN [facility] Address: [address] [place] [address] Result Comment: The [place] Diabetes Association (ADA) provides guidance for cutoff [...] Standards of Medical Care in Diabetes 2016, [place] Diabetes Association. Diabetes Care. 2016.39(Suppl 1). Performed By: #### 1 9123-9, 97488-4 #### [facility] CLIA [id number] [address] [place] [address] [place] Phosphate [Mass/Vol] 4.4 mg/dL Normal 2.7-4.8 [facility] Comment on above: Order Comment: [place] Type: BLOOD SPECIMEN [facility] Address: [address] [place] [address] Performed By: #### 1 9123-9, 58195-3 #### [facility] CLIA [id number] [address] [place] [address] [place] Potassium [Moles/Vol] 4.3 mmol/L Normal 3.7-5.1 [facility] Comment on above: Order Comment: Speci men Type: BLOOD SPECIMEN [facility] Address: [address] [place] [address] Performed By: #### 1 9123-9, 08430-3 #### [facility] CLIA [id number] [address] [place] [address] [place] Sodium [Moles/Vol] 143 mmol/L Normal 136-144 [facility] Comment on above: Order Comment: [place] men Type: BLOOD SPECIMEN [facility] Address: [address] [place] [address] Performed By: #### 1 9123-9, 60096-3 #### [facility] CLIA [id number] [address] [place] [id number] [place] Urea nitrogen [Mass/Vol] 54 mg/dL High 9-24 [facility] Comment on above: Order Comment: Speci men Type: BLOOD SPECIMEN [facility] Address: [address] [place] [address] Performed By: #### 1 9123-9, 20035-7 #### [facility] CLIA [id number] [place] [address] [place] STAPH AUREUS PCRon S. aureus and MRSA panel ERIBERTO+probe (Nose) Normal Negative [facility] Comment on above: Order Comment: Speci men Type: SWAB OF INTERNAL NOSEOrdering Facility: [facility] Address: [address] [place] [address] Result Comment: Nega tive for Staphylococcus aureus by PCR. Negative for MRSA by PCR Performed By: #### S APCR ####[facility] [id number] [place] [address] [place] XR CHEST 1V [...] left pleural effusion demonstrating slight interval progression. Manager Critical Care: SAM Transcribe Date/Time: Oct 25 2023 7:29A Dictated by : KASHIF PIERSON MD This examination was interpreted and the report reviewed and electronically signed by: KASHIF PIERSON MD on Oct 25 2023 7:30AM EST [id number] [facility] ALLIED HEALTHon 10-24-2023 ALLIED HEALTH HNO ID: [id number] Author: ABDIFATAH PAGE RDMS Service: Radiology Author [...] PATIENT PRESENTS WITH AN IMPLANTABLE OR ATTACHED SLEEVE SETTER: No RADIOLOGY DEPARTMENT: Ultrasound PERIPHERAL IV DATA: Not applicable SIGNED BY: Abdifatah Page RDMS October 24, 2023 4:59 PM [facility] ARTERIAL BLOOD GASESon 10-23 Base excess Calc (Bld) [Moles/Vol] 6 mmol/L High 0-2 [facility] Comment on above: Order Comment: Speci men Type: BLOOD SPECIMEN [facility] Address: [address] [place] [address] Performed By: #### 1 9123-9, 78256859-5 #### [facility] CLIA [id number] [address] [place] [address] [place] Body temperature 98.6 [degF] Normal [facility] Comment on above: Order Comment: Speci men Type: BLOOD SPECIMEN [facility] Address: [address] [place] [address] Performed By: #### 1 9123-9, 54857481-3 #### [facility] CLIA [id number] [address] [place] [address] [place] Calcium.ionized (Bld) [Mass/Vol] 1.23 mmol/L Normal 1.08-1.30 [facility] Comment on above: Order Comment: Speci men Type: BLOOD SPECIMEN [facility] Address: [address] [place] [address] Performed By: #### 1 9123-9, 13572-5 #### [facility] CLIA [id number] [address] [place] [address] [place] Calcium.ionized adjusted to pH 7.4 (BldA) [Moles/Vol] 1.16 mmol/L Normal 1.08-1.30 [facility] Comment on above: Order Comment: Speci men Type: BLOOD SPECIMEN [facility] Address: [address] [place] [address] Performed By: #### 1 9123-9, 48093-7 #### [facility] CLIA [id number] [address] [place] [address] [place] Carboxyhemoglobin (BldA) [Mass fraction] 1.3 % Normal 0.0-2.0 [facility] Comment on above: Order Comment: Speci men Type: BLOOD SPECIMEN [facility] Address: [address] [place] [address] Result Comment: Carb oxyhemoglobin Reference Range for Smokers: 2.0-8.0% Performed By: #### 1 9123-9, 31298-5 #### [facility] CLIA [id number] [address] [place] [address] [place] Chloride [Moles/Vol] 104 mmol/L Normal 97-105 [facility] Comment on above: Order Comment: Speci men Type: BLOOD SPECIMEN [facility] Address: [address] [place] [address] Performed By: #### 1 9123-9, 09470-3 #### [facility] CLIA [id number] [address] [place] [address] [place] CO2 (Bld) [Partial pressure] 72 mm Hg High 36-46 [facility] Comment on above: Order Comment: Speci men Type: BLOOD SPECIMEN Ordering Facility: [facility] Address: [facility] [place] [address] Performed By: #### 1 9123-9, 17125-5 #### [facility] CLIA [id number] [address] [place] [address] [place] Glucose [Mass/Vol] 88 mg/dL Normal 60-105 [facility] Comment on above: Order Comment: Speci men Type: BLOOD SPECIMEN Ordering Facility: [facility] Address: [address] [place] [address] Performed By: #### 1 9123-9, 98755-5 #### [facility] CLIA [id number] [address] [place] [address] [place] HCO3 (Bld) [Moles/Vol] 34 mmol/L High 22-26 [facility] Comment on above: Order Comment: Speci men Type: BLOOD SPECIMEN Ordering Facility: [facility] Address: [address] [place] [address] Performed By: #### 1 9123-9, 82238-9 #### [facility] CLIA [id number] [address] [place] [address] [place] Hematocrit (Bld) [Volume fraction] 38.4 % Low 39.0-51.0 [facility] Comment on above: Order Comment: Speci men Type: BLOOD SPECIMEN Ordering Facility: [facility] Address: [address] [place] [address] Performed By: #### 1 9123-9, #### [facility] CLIA [id number] [address] [place] [address] [place] Hemoglobin (Bld) [Mass/Vol] 12.5 g/dL Low 13.0-17.0 [facility] Comment on above: Order Comment: Speci men Type: BLOOD SPECIMEN Ordering Facility: [facility] Address: [address] [place] [address] Performed By: #### 1 9123-9, 09895-2 #### [facility] CLIA [id number] [address] [place] [address] [place] Lactate [Moles/Vol] 0.9 mmol/L Normal 0.5-2.2 [facility] Comment on above: Order Comment: Speci men Type: BLOOD SPECIMEN Ordering Facility: [facility] Address: [address] [place] [address] Performed By: #### 1 23-9, 34067-1 #### [facility] CLIA [id number] [address] [place] [address] [place] LITERS 4 Liters/min Normal [facility] Comment on above: Order Comment: Speci men Type: BLOOD SPECIMEN Ordering Facility: [facility] Address: [address] [place] [address] Performed By: #### 1 9123-04, 28573-6 #### [facility] CLIA [id number] [address] [place] [address] [place] Methemoglobin (Bld) [Mass fraction] 1.3 % Normal 0.0-1.5 [facility] Comment on above: Order Comment: Speci men Type: BLOOD SPECIMEN Ordering Facility: [facility] Address: [address] [place] [address] Performed By: #### 1 239, 56880-4 #### [facility] CLIA [id number] [address] [place] [address] [place] O2 THERAPY NC = Nasal Cannula Normal [facility] Comment on above: Order Comment: Speci men Type: BLOOD SPECIMEN Ordering Facility: [facility] Address: [address] [place] [address] Performed By: #### 1 9123-04, 77648-1 #### [facility] CLIA [id number] [address] [place] [address] [place] Oxygen (Bld) [Partial pressure] 73 mm Hg Low 85-95 [facility] Comment on above: Order Comment: Speci men Type: BLOOD SPECIMEN Ordering Facility: [facility] Address: [address] [place] [address] Performed By: #### 1 8723-9, 45372-6 #### [facility] CLIA [id number] [address] [place] [address] [place] Oxyhemoglobin (BldA) [Mass fraction] 91 % Low 95-98 [facility] Comment on above: Order Comment: Speci men Type: BLOOD SPECIMEN Ordering Facility: [facility] Address: [address] [place] [address] Performed By: #### 1 9123-9, 19839-8 #### [facility] CLIA [id number] [address] [place] [address] [place] pH (Bld) 7.30 [pH] Low 7.35-7.45 [facility] Comment on above: Order Comment: Speci men Type: BLOOD SPECIMEN Ordering Facility: [facility] Address: [address] [place] [address] Performed By: #### 1 9123-9, 94589-1 #### [facility] CLIA [id number] [address] [place] [address] [place] Potassium [Moles/Vol] 4.2 mmol/L Normal 3.5-5.0 [facility] Comment on above: Order Comment: Speci men Type: BLOOD SPECIMEN Ordering Facility: [facility] Address: [address] [place] [address] Performed By: #### 1 9123-9, 32909-6 #### [facility] CLIA [id number] [address] [place] [address] [place] Sodium [Moles/Vol] 141 mmol/L Normal 136-144 [facility] Comment on above: Order Comment: Speci men Type: BLOOD SPECIMEN Ordering Facility: [facility] Address: [address] [place] [address] Performed By: #### 1 9123-9, 82215-0 #### [facility] CLIA [id number] [address] [place] [address] [place] Base excess Calc (Bld) [Moles/Vol] 5 mmol/L High 0-2 [facility] Comment on above: Order Comment: Speci men Type: BLOOD SPECIMEN Ordering Facility: [facility] Address: [address] [place] [address] Performed By: #### P TTAC #### [facility] CLIA [id number] [address] [place] [address] [place] Body temperature 98.6 [degF] Normal [facility] Comment on above: Order Comment: Speci men Type: BLOOD SPECIMEN Ordering Facility: [facility] Address: [address] [place] [address] Performed By: #### P TTAC #### [facility] CLIA [id number] [address] [place] [address] [place] Calcium.ionized (Bld) [Mass/Vol] 1.22 mmol/L Normal 1.08-1.30 [facility] Comment on above: Order Comment: Speci men Type: BLOOD SPECIMEN Ordering Facility: [facility] Address: [address] [place] [address] Performed By: #### P TTAC #### [facility] CLIA [id number] [address] [place] [address] [place] Calcium.ionized adjusted to pH 7.4 (BldA) [Moles/Vol] 1.15 mmol/L Normal 1.08-1.30 [facility] Comment on above: Order Comment: Speci men Type: BLOOD SPECIMEN Ordering Facility: [facility] Address: [address] [place] [address] Performed By: #### P TTAC #### [facility] CLIA [id number] [address] [place] [address] [place] Carboxyhemoglobin (BldA) [Mass fraction] 1.7 % Normal 0.0-2.0 [facility] Comment on above: Order Comment: Speci men Type: BLOOD SPECIMEN Ordering Facility: [facility] Address: [address] [place] [address] Result Comment: Carb oxyhemoglobin Reference Range for Smokers: 2.0-8.0% Performed By: #### P TTAC #### [facility] CLIA [id number] [address] [place] [address] [place] Chloride [Moles/Vol] 101 mmol/L Normal 97-105 [facility] Comment on above: Order Comment: Speci men Type: BLOOD SPECIMEN Ordering Facility: [facility] Address: [address] [place] [address] Performed By: #### P TTAC #### [facility] CLIA [id number] [address] [place] [address] [place] CO2 (Bld) [Partial pressure] 70 mm Hg High 36-46 [facility] Comment on above: Order Comment: Speci men Type: BLOOD SPECIMEN Ordering Facility: [facility] Address: [address] [place] [address] Performed By: #### P TTAC #### [facility] CLIA [id number] [address] [place] [address] [place] Glucose [Mass/Vol] 210 mg/dL High 60-105 [facility] Comment on above: Order Comment: Speci men Type: BLOOD SPECIMEN Ordering Facility: [facility] Address: [address] [place] [address] Performed By: #### P TTAC #### [facility] CLIA [id number] [address] [place] [address] [place] HCO3 (Bld) [Moles/Vol] 34 mmol/L High 22-26 [facility] Comment on above: Order Comment: Speci men Type: BLOOD SPECIMEN Ordering Facility: [facility] Address: [address] [place] [address] Performed By: #### P TTAC #### [facility] CLIA [id number] [address] [place] [address] [place] Hematocrit (Bld) [Volume fraction] 37.5 % Low 39.0-51.0 [facility] Comment on above: Order Comment: Speci men Type: BLOOD SPECIMEN Ordering Facility: [facility] Address: [address] [place] [address] Performed By: #### P TTAC #### [facility] CLIA [id number] [address] [place] [address] [place] Hemoglobin (Bld) [Mass/Vol] 12.2 g/dL Low 13.0-17.0 [facility] Comment on above: Order Comment: Speci men Type: BLOOD SPECIMEN Ordering Facility: [facility] Address: [address] [place] [address] Performed By: #### P TTAC #### [facility] CLIA [id number] [address] [place] [address] [place] Lactate [Moles/Vol] 1.4 mmol/L Normal 0.5-2.2 [facility] Comment on above: Order Comment: Speci men Type: BLOOD SPECIMEN Ordering Facility: [facility] Address: [address] [place] [address] Performed By: #### P TTAC #### [facility] CLIA [id number] [address] [place] [address] [place] LITERS 6 Liters/min Normal [facility] Comment on above: Order Comment: Speci men Type: BLOOD SPECIMEN Ordering Facility: [facility] Address: [address] [place] [address] Performed By: #### P TTAC #### [facility] CLIA [id number] [address] [place] [address] [place] Methemoglobin (Bld) [Mass fraction] 0.7 % Normal 0.0-1.5 [facility] Comment on above: Order Comment: Speci men Type: BLOOD SPECIMEN Ordering Facility: [facility] Address: [address] [place] [address] Performed By: #### P TTAC #### [facility] CLIA [id number] [address] [place] [address] [place] O2 THERAPY NC = Nasal Cannula Normal [facility] Comment on above: Order Comment: Speci men Type: BLOOD SPECIMEN Ordering Facility: [facility] Address: [address] [place] [address] Performed By: #### P TTAC #### [facility] CLIA [id number] [address] [place] [address] [place] Oxygen (Bld) [Partial pressure] 85 mm Hg Normal 85-95 [facility] Comment on above: Order Comment: Speci men Type: BLOOD SPECIMEN Ordering Facility: [facility] Address: [address] [place] [address] Performed By: #### P TTAC #### [facility] CLIA [id number] [address] [place] [address] [place] Oxyhemoglobin (BldA) [Mass fraction] 94 % Low 95-98 [facility] Comment on above: Order Comment: Speci men Type: BLOOD SPECIMEN Ordering Facility: [facility] Address: [address] [place] [address] Performed By: #### P TTAC #### [facility] CLIA [id number] [address] [place] [address] [place] pH (Bld) 7.30 [pH] Low 7.35-7.45 [facility] Comment on above: Order Comment: Speci men Type: BLOOD SPECIMEN Ordering Facility: [facility] Address: [address] [place] [address] Performed By: #### P TTAC #### [facility] CLIA [id number] [address] [place] [address] [place] Potassium [Moles/Vol] 4.0 mmol/L Normal 3.5-5.0 [facility] Comment on above: Order Comment: Speci men Type: BLOOD SPECIMEN Ordering Facility: [facility] Address: [address] [place] [address] Performed By: #### P TTAC #### [facility] CLIA [id number] [address] [place] [address] [place] Sodium [Moles/Vol] 141 mmol/L Normal 136-144 [facility] Comment on above: Order Comment: Speci men Type: BLOOD SPECIMEN Ordering Facility: [facility] Address: [address] [place] [address] Performed By: #### P TTAC #### [facility] CLIA [id number] [address] [place] [address] [place] Bacteria Ur Culton [...] technique or straight catheterization for???urine???collect ion. Normal [facility] Comment on above: Performed By: #### 6 30-4 ####[facility] [id number] [facility] [place] [address] [place] Basic metabolic 2000 panelon 10-24-2023 Anion gap [Moles/Vol] 11 mmol/L Normal 9-18 [facility] Comment on above: Order Comment: Speci men Type: BLOOD SPECIMEN Ordering Facility: [facility] Address: [address] [place] [address] Performed By: #### 2 4321-2, HSTNT #### [facility] CLIA [id number] [address] [place] [address] [place] Calcium [Mass/Vol] 8.7 mg/dL Normal 8.5-10.2 [facility] Comment on above: Order Comment: Speci men Type: BLOOD SPECIMEN Ordering Facility: [facility] Address: [address] [place] [address] Performed By: #### 2 4321-2, HSTNT #### [facility] CLIA [id number] [address] [place] [address] [place] Chloride [Moles/Vol] 101 mmol/L Normal 97-105 [facility] Comment on above: Order Comment: Speci men Type: BLOOD SPECIMEN Ordering Facility: [facility] Address: [address] [place] [address] Performed By: #### 2 4321-2, HSTNT #### [facility] CLIA [id number] [address] [place] [address] [place] CO2 [Moles/Vol] 30 mmol/L Normal 22-30 [facility] Comment on above: Order Comment: Speci men Type: BLOOD SPECIMEN Ordering Facility: [facility] Address: [address] [place] [address] Performed By: #### 2 4321-2, HSTNT #### [facility] CLIA [id number] [address] [place] [address] [place] Creatinine [Mass/Vol] 1.82 mg/dL High 0.73-1.22 [facility] Comment on above: Order Comment: [place] Type: BLOOD SPECIMEN Ordering Facility: [facility] Address: [address] [place] [address] Performed By: #### 2 4321-2, HSTNT #### [facility] CLIA [id number] [address] [place] [address] [place] Creatinine and Glomerular filtration rate.predicted panel (S/P/Bld) 41 mL/min/1.73m??? Low >=60 [facility] Comment on above: Order Comment: [place] Type: BLOOD SPECIMEN Ordering Facility: [facility] Address: [address] [place] [address] Result Comment: Meredith mated Glomerular Filtration Rate [...] Performed By: #### 2 4321-2, HSTNT #### [facility] CLIA [id number] [place], [place] [address] [place] Glucose [Mass/Vol] 229 mg/dL High 74-99 [facility] Comment on above: Order Comment: [place] Type: BLOOD SPECIMEN Ordering Facility: [facility] Address: [address] [place] [address] Result Comment: The [place] Diabetes Association (ADA) provides guidance for cutoff [...] Standards of Medical Care in Diabetes 2016, [place] Diabetes Association. Diabetes Care. 2016.39(Suppl 1). Performed By: #### 2 4321-2, HSTNT #### [facility] CLIA [id number] [address] [place] [address] [place] Potassium [Moles/Vol] 4.2 mmol/L Normal 3.7-5.1 [facility] Comment on above: Order Comment: Speci men Type: BLOOD SPECIMEN Ordering Facility: [facility] Address: [address] [place] [address] Performed By: #### 2 4321-2, HSTNT #### [facility] CLIA [id number] [address] [place] [address] [place] Sodium [Moles/Vol] 142 mmol/L Normal 136-144 [facility] Comment on above: Order Comment: Speci men Type: BLOOD SPECIMEN Ordering Facility: [facility] Address: [address] [place] [address] Performed By: #### 2 4321-2, HSTNT #### [facility] CLIA [id number] [address] [place] [address] [place] Urea nitrogen [Mass/Vol] 58 mg/dL High 9-24 [facility] Comment on above: Order Comment: Speci men Type: BLOOD SPECIMEN Ordering Facility: [facility] Address: [address] [place] [address] Performed By: #### 2 4321-2, HSTNT #### [facility] CLIA [id number] [address] [place] [address] [place] CBC panel Auto (Bld)on 10-23 Erythrocyte distribution width (RBC) [Ratio] 16.4 % High 11.5-15.0 [facility] Comment on above: Order Comment: Speci men Type: BLOOD SPECIMEN Ordering Facility: [facility] Address: [address] [place] [address] Performed By: #### 1 9123-9, 11214-7 #### [facility] CLIA [id number] [address] [place] Hematocrit (Bld) [Volume fraction] 41.0 % Normal 39.0-51.0 [facility] Comment on above: Order Comment: Speci men Type: BLOOD SPECIMEN Ordering Facility: [facility] Address: [address] [place] [address] Performed By: #### 1 9123-9, 18271-1 #### [facility] CLIA [id number] [address] [place] [address] [place] Hemoglobin (Bld) [Mass/Vol] 12.4 g/dL Low 13.0-17.0 [facility] Comment on above: Order Comment: Speci men Type: BLOOD SPECIMEN Ordering Facility: [facility] Address: [address] [place] [address] Performed By: #### 1 9123-9, 70041-2 #### [facility] CLIA [id number] [address] [place] [address] [place] MCH (RBC) [Entitic mass] 26.9 pg Normal 26.0-34.0 [facility] Comment on above: Order Comment: Speci men Type: BLOOD SPECIMEN Ordering Facility: [facility] Address: [address] [place] [address] Performed By: #### 1 2523-9, 37358-8 #### [facility] CLIA [id number] [address] [place] [address] [place] MCHC (RBC) [Mass/Vol] 30.2 g/dL Low 30.5-36.0 [facility] Comment on above: Order Comment: Speci men Type: BLOOD SPECIMEN Ordering Facility: [facility] Address: [address] [place] [address] Performed By: #### 1 2523-9, 02644-3 #### [facility] CLIA [id number] [address] [place] [address] [place] MCV (RBC) [Entitic vol] 88.9 fL Normal 80.0-100.0 [facility] Comment on above: Order Comment: Speci men Type: BLOOD SPECIMEN Ordering Facility: [facility] Address: [address] [place] [address] Performed By: #### 1 23-9, 09155-5 #### [facility] CLIA [id number] [address] [place] [address] [place] Nucleated RBC (Bld) [#/Vol] 10*3/uL Normal <0.01 [facility] Comment on above: Order Comment: Speci men Type: BLOOD SPECIMEN Ordering Facility: [facility] Address: [address] [place] [address] Performed By: #### 1 23-9, 25035-1 #### [facility] CLIA [id number] [address] [place] [address] [place] Platelet mean volume (Bld) [Entitic vol] 8.8 fL Low 9.0-12.7 [facility] Comment on above: Order Comment: Speci men Type: BLOOD SPECIMEN Ordering Facility: [facility] Address: [address] [place] [address] Performed By: #### 1 239, 67743-1 #### [facility] CLIA [id number] [address] [place] [address] [place] Platelets (Bld) [#/Vol] 240 10*3/uL Normal 150-400 [facility] Comment on above: Order Comment: Speci men Type: BLOOD SPECIMEN Ordering Facility: [facility] Address: [address] [place] [address] Performed By: #### 1 9123-9, 47391-9 #### [facility] CLIA [id number] [address] [place] [address] [place] RBC (Bld) [#/Vol] 4.61 10*6/uL Normal 4.20-6.00 [facility] Comment on above: Order Comment: Speci men Type: BLOOD SPECIMEN Order[facility] Facility: [facility] Address: [address] [place] [address] Performed By: #### 1 9123-9, 05002-2 #### [facility] CLIA [id number] [address] [place] [address] [place] WBC (Bld) [#/Vol] 7.15 10*3/uL Normal 3.70-11.00 [facility] Comment on above: Order Comment: Speci men Type: BLOOD SPECIMEN Order[facility] Facility[facility] Address: [address] [place] [address] Performed By: #### 1 9123-9, 53017-0 #### [facility] CLIA [id number] [address] [place] [address] [place] CONSULTon 10-24-2023 CONSULT HNO ID: [id number] Author: NAUN COUCH MD Service: Nephrology Author [...] amputation admitted from home who presented to [facility] with complaints of worsening shortness of breath, bilateral lower extremity edema and ~ 10lb weight gain in the last few weeks. Patient reports multiple hospital admissions in 2023 at [facility] in [place] for fluid overload. He states he usually [...] MEALS AND HS (more content not included)... [facility] CONSULT HNO ID: [id number] Author: FLOR BE RN Service: ? Author [...] foot. Patient goes to wound clinic in [place] for care last dressing used was Temi. [...] 10/24/2023 9:38 AM Wound Image Site Assessment Red;Parks Nora-Wound Assessment Calloused Shape oval Wound Length [...] Review under the Scanned Docs tab in [employer]. The purpose of the photo(s) is to optimize the patient's medical care and allow (more content not included)... Normal [facility] CONSULT HNO ID: [id number] Author: NERY MOTTA MD Service: Cardiovascular Medicine Author Type: Physician Type: Consults Filed: 10/24/2023 17:43 Note Text: [facility] CARDIOVASCULAR [facility]ICINE CONSULT NOTE (Template ID [id number]) Nicole Lora [id number] PRIMARY SERVICE: Internal Medicine CONSULTING SERVICE: Cardiovascular Medicine: General Consults DATE OF ADMISSION: 10/23/2023 DATE OF CONSULT: 10/24/2023 REASON FOR CONSULT Elevated troponins HISTORY OF PRESENT ILLNESS Nicole Lora is a 63 year old male PMH of CKD 3, chronic respiratory failure, morbid obesity, insulin dependent diabetes, TC, Asthma, left forefoot amputation, lives in [place], who was admitted for volume overload. He [...] 500 m (more content not included)... Normal [facility] CONSULT PROGon 10-24-2023 CONSULT PROG HNO ID: [id number] Author: JOSE HARMON RPh Service: Pharmacy Author [...] have any questions, please contact pharmacy at [phone]. Estimated Creatinine Clearance: 60.4 mL/min (A) (based [...] RPh October 24, 2023 3:09 AM Normal [facility] Chloride ?Tm Ur-sCncon 10-23 Chloride Unsp time (U) [Moles/Vol] 61 mmol/L Normal 16-250 [facility] Comment on above: Order Comment: Speci men Type: BLOOD SPECIMEN [facility] Address: [address] [place] [address] Performed By: #### 1 9123-9, 94320-6 #### [facility] CLIA [id number] [address] [place] [id number] [place] D dimer FEU PPP-mCncon 10-23 Fibrin D-dimer FEU (PPP) [Mass/Vol] 2400 ng/mL FEU High <500 [facility] Comment on above: Order Comment: Speci men Type: BLOOD SPECIMENOrdering Facility: [facility] Address: [address] [place] [address] Performed By: #### 4 8065-7, 77030-8, PTTAC ####[facility] [id number] [place] [id number] [place] [facility] Fibrin D-dimer FEU (PPP) [Ma ss/Vol]on 10-24-2023 D DIMER AGE-RELATED CUTOFF 640 ng/mL FEU Normal [facility] Comment on above: Order Comment: Speci men Type: BLOOD SPECIMENOrdering Facility: [facility] Address: [address] [place] [address] Performed By: #### 4 8065-7, 63665-4, PTTAC ####[facility] [id number] [place] [id number] [facility] Gas and Carbon monoxide pane l (BldV)on 10-24-2023 Base excess Calc (BldV) [Moles/Vol] 4 mmol/L High 0-2 [facility] Comment on above: Order Comment: Speci men Type: BLOOD SPECIMEN Ordering Facility: [facility] Address: [address] [place] [address] Performed By: #### 1 9123-9, 30155-1 #### [facility] CLIA [id number] [address] [place] [id number] [place] Body temperature 32 [degF] Normal [facility] Comment on above: Order Comment: Speci men Type: BLOOD SPECIMEN Ordering Facility: [facility] Address: [address] [place] [address] Performed By: #### 1 9123-9, 27766-7 #### [facility] CLIA [id number] [address] [place] [address] [place] Calcium.ionized (Bld) [Mass/Vol] 1.14 mmol/L Normal 1.08-1.30 [facility] Comment on above: Order Comment: Speci men Type: BLOOD SPECIMEN Ordering Facility: [facility] Address: [address] [place] [address] Performed By: #### 1 9123-9, 49122-7 #### [facility] CLIA [id number] [address] [place] [address] [place] Calcium.ionized adjusted to pH 7.4 (BldA) [Moles/Vol] 1.08 mmol/L Normal 1.08-1.30 [facility] Comment on above: Order Comment: Speci men Type: BLOOD SPECIMEN Ordering Facility: [facility] Address: [address] [place] [address] Performed By: #### 1 9123-9, 61150-8 #### [facility] CLIA [id number] [address] [place] [address] [place] Carboxyhemoglobin (BldV) [Mass fraction] 2.3 % High 0.0-2.0 [facility] Comment on above: Order Comment: Speci men Type: BLOOD SPECIMEN Ordering Facility: [facility] Address: [address] [place] [address] Result Comment: Carb oxyhemoglobin Reference Range for Smokers: 2.0-8.0% Performed By: #### 1 9123-9, 18782-2 #### [facility] CLIA [id number] [address] [place] [address] [place] Chloride [Moles/Vol] 103 mmol/L Normal 97-105 [facility] Comment on above: Order Comment: Speci men Type: BLOOD SPECIMEN Ordering Facility: [facility] Address: [address] [place] [address] Performed By: #### 1 9123-9, 66402-7 #### [facility] CLIA [id number] [address] [place] [address] [place] CO2 (BldV) [Partial pressure] 66 mm[Hg] High 42-55 [facility] Comment on above: Order Comment: Speci men Type: BLOOD SPECIMEN Ordering Facility: [facility] Address: [facility] [place] [address] Performed By: #### 1 9, 43333-8 #### [facility] CLIA [id number] [address] [place] [address] [place] CO2 adjusted to patient's actual temperature (BldV) [Partial pressure] Normal [facility] Comment on above: Order Comment: Speci men Type: BLOOD SPECIMEN Ordering Facility: [facility] Address: [address] [place] [address] Performed By: #### 1 9123-04, #### [facility] CLIA [id number] [address] [place] [address] [place] Glucose [Mass/Vol] 222 mg/dL High 60-105 [facility] Comment on above: Order Comment: Speci men Type: BLOOD SPECIMEN Ordering Facility: [facility] Address: [address] [place] [address] Performed By: #### 1 239, #### [facility] CLIA [id number] [address] [place] [address] [place] HCO3 (Bld) [Moles/Vol] 31 mmol/L High 24-28 [facility] Comment on above: Order Comment: Speci men Type: BLOOD SPECIMEN Ordering Facility: [facility] Address: [address] [place] [address] Performed By: #### 1 239, 20183-9 #### [facility] CLIA [id number] [address] [place] [address] [place] Hematocrit (Bld) [Volume fraction] 38.5 % Low 39.0-51.0 [facility] Comment on above: Order Comment: Speci men Type: BLOOD SPECIMEN Ordering Facility: [facility] Address: [address] [place] [address] Performed By: #### 1 23-9, 25147-0 #### [facility] CLIA [id number] [address] [place] [address] [place] Hemoglobin (Bld) [Mass/Vol] 12.5 g/dL Low 13.0-17.0 [facility] Comment on above: Order Comment: Speci men Type: BLOOD SPECIMEN Ordering Facility: [facility] Address: [address] [place] [address] Performed By: #### 1 9123-9, 92870-6 #### [facility] CLIA [id number] [address] [place] [address] [place] Lactate [Moles/Vol] 0.7 mmol/L Normal 0.5-2.2 [facility] Comment on above: Order Comment: Speci men Type: BLOOD SPECIMEN Ordering Facility: [facility] Address: [address] [place] [address] Performed By: #### 1 9123-9, 33074-1 #### [facility] CLIA [id number] [address] [place] [address] [place] Methemoglobin (Bld) [Mass fraction] 0.6 % Normal 0.0-1.5 [facility] Comment on above: Order Comment: Speci men Type: BLOOD SPECIMEN Ordering Facility: [facility] Address: [address] [place] [address] Performed By: #### 1 9123-9, 59519-9 #### [facility] CLIA [id number] [address] [place] [address] [place] O2 THERAPY RA=Room Air Normal [facility] Comment on above: Order Comment: Speci men Type: BLOOD SPECIMEN Ordering Facility: [facility] Address: [address] [place] [address] Performed By: #### 1 9123-9, 13684-2 #### [facility] CLIA [id number] [address] [place] [address] [place] Oxygen (BldV) [Partial pressure] 176 mm[Hg] High 35-45 [facility] Comment on above: Order Comment: Speci men Type: BLOOD SPECIMEN Ordering Facility: [facility] Address: [address] [place] [address] Performed By: #### 1 9123-9, 89273-9 #### [facility] CLIA [id number] [address] [place] [address] [place] Oxygen adjusted to patient's actual temperature (BldV) [Partial pressure] Normal [facility] Comment on above: Order Comment: Speci men Type: BLOOD SPECIMEN Ordering Facility: [facility] Address: [address] [place] [address] Performed By: #### 1 9123-9, 81186-7 #### [facility] CLIA [id number] [address] [place] [address] [place] Oxygen saturation in Venous blood 99 % High 60-85 [facility] Comment on above: Order Comment: Speci men Type: BLOOD SPECIMEN Ordering Facility: [facility] Address: [address] [place] [address] Performed By: #### 1 9123-9, 97724-0 #### [facility] CLIA [id number] [address] [place] [address] [place] Oxyhemoglobin (BldV) [Mass fraction] 96 % High 60-85 [facility] Comment on above: Order Comment: Speci men Type: BLOOD SPECIMEN Ordering Facility: [facility] Address: [address] [place] [address] Performed By: #### 1 9123-9, 49957-9 #### [facility] CLIA [id number] [address] [place] [address] [place] pH (BldV) 7.30 [pH] Low 7.32-7.42 [facility] Comment on above: Order Comment: Speci men Type: BLOOD SPECIMEN Ordering Facility: [facility] Address: [address] [place] [address] Performed By: #### 1 9123-9, 19851-3 #### [facility] CLIA [id number] [address] [place] [address] [place] pH adjusted to patient's actual temperature (BldV) Normal [facility] Comment on above: Order Comment: Speci men Type: BLOOD SPECIMEN Ordering Facility: [facility] Address: [address] [place] [address] Performed By: #### 1 9123-9, 10648-7 #### [facility] CLIA [id number] [place] [address] [place] Potassium [Moles/Vol] 3.9 mmol/L Normal 3.5-5.0 [facility] Comment on above: Order Comment: Speci men Type: BLOOD SPECIMEN Ordering Facility: [facility] Address: [address] [place] [address] Performed By: #### 1 9123-9, 04734-7 #### [facility] CLIA [id number] [place] [address] [place] Sodium [Moles/Vol] 140 mmol/L Normal 136-144 [facility] Comment on above: Order Comment: [place] Type: BLOOD SPECIMEN Ordering Facility: [facility] Address: [address] [place] [address] Performed By: #### 1 9123-9, 94016-3 #### [facility] CLIA [id number] [address] [place] [address] [place] HIGH SENSITIVITY TROPONIN To n 10-24-2023 Troponin T.cardiac High sensitivity method [Mass/Vol] 153 ng/L High <12 [facility] Comment on above: Order Comment: [place] Type: BLOOD SPECIMENOrdering Facility: [facility] Address: [address] [place] [address] Result Comment: When assessing risk for acute [...] day MACE. Performed By: #### H STNT ####[facility] [id number] [place] [address] [place] Troponin T.cardiac High sensitivity method [Mass/Vol] 152 ng/L High <12 [facility] Comment on above: Order Comment: [place] Type: BLOOD SPECIMENOrdering Facility: [facility] Address: [address], [place] [address] Result Comment: When assessing risk for acute [...] MACE. Performed By: #### 2 4321-2, HSTNT ####[facility] [id number] [place] [address] [place] HISTORY PHYSICALon HISTORY PHYSICAL HNO ID: [id number] Author: TAY STEWART MD Service: General Internal [...] Plan: Insul (more content not included)... Normal [facility] HISTORY PHYSICAL HNO ID: [id number] Author: JUID LOERA PA Service: General Internal Medicine Author Type: Physician Recording Studio Set Up Worker Type: H&P Filed: 10/24/2023 02:27 Note Text: [...] forefoot amputation admitted from home, lives in [place] for fluid overload. The patient states he's [...] constipation, d (more content not included)... Normal [facility] HbA1c (Bld)on 10-24-2023 Average glucose Estimated from glycated hemoglobin (Bld) [Mass/Vol] 240 mg/dL Normal [facility] Comment on above: Order Comment: [place] Type: BLOOD SPECIMENOrdering Facility: [facility] Address: [address] [place] [address] Result Comment: eAG: (Estimated average glucose) is a calculated value from HgbA1c and is construction representative of the average blood glucose level in the last 2-3 month period. Performed By: #### 5 5454-3 ####[facility] [id number] [place] [address] [place] HbA1c (Bld) [Mass fraction] 10.0 % High 4.3-5.6 [facility] Comment on above: Order Comment: [place] Type: BLOOD SPECIMENOrdering Facility: [facility] Address: [address] [place] [address] Result Comment: Amer ican Diabetes Association guidelines indicate that patients with HgbA1c in the range 5.7-6.4% are at increased risk for development of diabetes, and intervention by lifestyle modification may be beneficial. HgbA1c greater or equal to 6.5% is considered diagnostic of diabetes. Performed By: #### 5 5454-3 ####[facility] [id number] [place] [address] [place] NM LUNG VENT [...] - IMPRESSION: LOW PROBABILITY OF PULMONARY EMBOLISM. Manager Critical Care: PSCB Transcribe Date/Time: Oct 24 2023 2:27P Dictated by : CAT LUO MD This examination was interpreted and the report reviewed and electronically signed by: CAT LUO MD on Oct 24 2023 2:29PM EST [id number] [facility] NURSING PROGon 10-24-2023 NURSING PROG HNO ID: [id number] Author: SLADE MCMILLAN RN Service: ? Author Type: Registered Nurse Type: Nursing Progress Note Filed: 10/24/2023 23:50 Note Text: 2118: page house to [facility] pt pCO2 came back 72. 2143: raymon huerta charleston at bedside states she will talk to ICU team and go from there 2348: pt transferred to MICU, report given to RN. [facility] NURSING PROG HNO ID: [id number] Author: CARTER ANGEL RN Service: Nursing Author Type: Registered Nurse Type: Nursing Progress Note Filed: 10/24/2023 18:32 Note Text: Other: Late entry for 829, decreased oxygen to 5L NC, baseline is 4L NC at home. 1230: Heparin gtt discontinued, ( no cardiology intervention to be done at this time) diet order placed 1700: urgent pCO2 of 70. 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 1715 oxygen turned to 4.5 L per resp recommendation air force senior officer paged 1745: House office aware and into talk with patient. Will reach out to ICU for recommendations, sating 88-90 on 4.5 L 1830: New orders to repeat ABG's again at 2100 [facility] NURSING PROG HNO ID: [id number] Author: ANIA VAZQUEZ RN Service: ? Author Type: Registered Nurse Type: Nursing Progress Note Filed: 10/24/2023 03:26 Note Text: 0223- secure chat with HARPAL Garcia, pt has STAT order for echo, ok to be done tommorow, does not need to be done at this time [facility] NURSING PROG HNO ID: [id number] Author: SLADE MCMILLAN, RN Service: ? Author Type: Registered Nurse Type: Nursing Progress Note Filed: 10/24/2023 04:15 Note Text: 0304: [facility] pt MARINA came back 152. 0405: [facility] pt pulse ox keep dropping to 85-87 and he is on 6L of O2. he would jump up to 95 then back down and sustaining at 88%. He denies SOB. 0412: called back form , new orders put in. Normal [facility] NURSING PROG HNO ID: [id number] Author: ANIA VAZQUEZ, RAFAEL Service: ? Author Type: Registered Nurse Type: Nursing Progress Note Filed: 10/24/2023 01:27 Note Text: Transfer Note: PATIENT NAME: Nicole Lora Patient Location: [place] [address] [address] Room: [place] [address] Patient transferred into room/unit PK322 from the ED in stable condition. Actions taken: No futher actions taken at this time. Will continue to monitor and check with patient. Normal [facility] Osmolality SerPlon Osmolality [Osmolality] 316 mosm/kg High 275-300 [facility] Comment on above: Order Comment: Speci men Type: BLOOD SPECIMEN [facility] Address: [address] [place] [address] Performed By: #### P TTA #### [facility] CLIA [id number] [address] [place] [address] [place] Osmolality Uron 10-24-2023 Osmolality (U) [Osmolality] 343 mosm/kg Normal 50-1200 [facility] Comment on above: Order Comment: Speci men Type: BLOOD SPECIMEN [facility] Address: [address] [place] [address] Performed By: #### 1 9123-9, 54556-4 #### [facility] CLIA [id number] [address] [place] [id number] [place] PT panel Coag (PPP)on 2023 INR Coag (PPP) [Relative time] 1.0 {INR} Normal 0.9-1.3 [facility] Comment on above: Order Comment: [place] Type: BLOOD SPECIMENOrdering Facility: [facility] Address: [address] [place] [address] Result Comment: Hazel min K Antagonist (VKA) Therapeutic Range: INR 2 to 3 (Target INR of 2.5) Note: For patients treated with VKA drugs, such as warfarin, the [place] [employer] 2012 Guideline recommends [...] Chest 2012, 141:7S-47S Sheri RA, et al. [facility] 2017, 70: 252-289 Performed By: #### 4 8065-7, 67694-1, PTTAC ####[facility] [id number] [place] [id number] [place] PT Coag (PPP) [Time] 10.9 s Normal 9.7-13.0 [facility] Comment on above: Order Comment: [place] Type: BLOOD SPECIMENOrdering Facility: [facility] Address: [address] [place] [address] Performed By: #### 4 8065-7, 92628-8, PTTAC ####[facility] [id number] [place] [address] [place] PTT, ANTICOAGULANT THERAPYon 10-24-2023 aPTT Coag (PPP) [Time] 31.1 s Normal 23.0-32.4 [facility] Comment on above: Order Comment: Speci men Type: BLOOD SPECIMEN [facility] Address: [address] [place] [address] Performed By: #### P TTAC #### [facility] CLIA [id number] [address] [place] [address] [place] aPTT Coag (PPP) [Time] 28.0 s Normal 23.0-32.4 [facility] Comment on above: Order Comment: Speci men Type: BLOOD SPECIMENOrdering Facility: [facility] Address: [address] [place] [address] Performed By: #### 4 8065-7, 33299-3, PTTAC ####[facility] [id number] [address] [place] Potassium ?Tm Ur-sCncon 03-0 Potassium Unsp time (U) [Moles/Vol] 25.9 mmol/L Normal 10.0-160.0 [facility] Comment on above: Order Comment: Speci men Type: BLOOD SPECIMEN Order[facility] Facility: [facility] Address: [address] [place] [address] Performed By: #### P TTAC #### [facility] CLIA [id number] [address] [place] [address] [place] Prot/Creat Uron 10-24-2023 Protein/Creatinine (U) [Mass ratio] 1.09 mg/mg High <0.15 [facility] Comment on above: Order Comment: Speci men Type: BLOOD SPECIMEN Order[facility] Facility: [facility] Address: [address] [place] [address] Result Comment: Adul t Proteinuria Categories: <0.15 mg/mg is considered normal to mildly increased 0.15 - 0.50 mg/mg is considered moderately increased >0.50 mg/mg is considered severely increased KDIGO. (2013). KDIGO 2012 Clinical Practice Guideline for the Evaluation and Management of Chronic Kidney Disease. Official Journal of the International Society of Nephrology, 3(1), 1-150. Performed By: #### P TTAC #### [facility] CLIA [id number] [address] [place] [address] [place] Protein/Creatinine (U) [Mass ratio]on 10-24-2023 Creatinine (U) [Mass/Vol] 43.3 mg/dL Normal 20.0-300.0 [facility] Comment on above: Order Comment: Speci men Type: BLOOD SPECIMEN Order[facility] Address: [address] [place] [address] Performed By: #### P TTAC #### [facility] CLIA [id number] [address] [place] [address] [place] Protein (U) [Mass/Vol] 47 mg/dL High 0-20 [facility] Comment on above: Order Comment: Speci men Type: BLOOD SPECIMEN [facility] Facility[facility] Address: [address] [place] [address] Performed By: #### P TTAC #### [facility] CLIA [id number] [address] [place] [address] [place] Sodium ?Tm Ur-sCncon 024 Sodium Unsp time (U) [Moles/Vol] 61 mmol/L Normal 14-216 [facility] Comment on above: Order Comment: Speci men Type: BLOOD SPECIMEN [facility] Address: [address] [place] [address] Performed By: #### P TTAC #### [facility] CLIA [id number] [address] [place] [address] [place] THERAPY NTon 10-24-2023 THERAPY NT HNO ID: [id number] Author: CATHIE DOMÍNGUEZ, PT Service: Physical Therapy Author Type: Physical Therapist Type: Therapy (PT/OT/Speech/Resp) Filed: 10/24/2023 12:05 Note Text: Physical Therapy Evaluation Summary SERVICE DATE: 10/24/2023 SERVICE TIME: 908 to 931 ROOM: [place] [address] PT 6 Clicks Score: 20 DISCHARGE RECOMMENDATIONS [...] See Comment Comments: Apt 1st level In [place], [place] Assistance Available: Part-Time, Other: See Comment [...] independently prior to admit, and drives. Per [facility], Pt has been in and out of hospitals for the past six weeks. . Pt has five children in the area, and reported they check him daily. SUBJECTIVE I'm uncomfortable THERAPY DIAGNOSIS Reduced mobility-other, Muscle Weakness (generalized), General symptoms and signs-other TREATMENT INTERVENTIONS Evaluation, Gait Training (21702) Timed Code Treatment (minutes): 8 Skilled Treatment [...] October 24, 2023 TIME: 12:05 PM Normal [facility] THERAPY NT HNO ID: [id number] Author: LUZMA AVALOS, OTR/L Service: Occupational Therapy Author Type: Occupational Therapist Type: Therapy (PT/OT/Speech/Resp) Filed: 10/24/2023 12:02 Note Text: Occupational Therapy Evaluation Summary SERVICE DATE: 10/24/2023 SERVICE TIME: 839 to 904 ROOM: [address] 6 Clicks Score: 19 SOB, BLE Edema Rt > Left, Elevated troponin, Fluid Overload. Pt Presents With Multiple Recent Hospital Admits. DISCHARGE RECOMMENDATIONS Home Anticipated Discharge Needs: Physical Assist at Home, Equipment Physical Assist at Home for: Transportation, Shopping, Laundry, Cleaning Recommended Discharge Equipment: Grab Bars-Shower, Hand Held Shower, Long Handled Shoe Horn, Long Handled Sponge, Wheeled Walker, Power Station Operator, Shower Chair ASSESSMENT Response to Therapy Interventions: [...] See Comment Comments: Apt 1st level In [place], [place] Assistance Available: Part-Time, Other: See Comment [...] independently prior to admit, and drives. Per [facility], Pt has been in and [...] Muscle Weakness (generalized) TREATMENT INTERVENTIONS Evaluation, Self Skilled Nursing Management (62645) Timed Code Treatment (minutes): 10 Skilled Treatment Time (minutes): 25 TRAINING AND EDUCATION PROVIDED Bed Mobility, Benefits of In-Hospital Mobility, Discharge Planning, Edema Management, Disease Specific Education, Energy Conservation, Expected Functional Level, Insight into Deficits, Positioning, Precautions/Restricti ons, Role of Occupational Therapy, Safety/Judgment, Standing Balance to Improve [place] with ADLs/Self-Care, Transfer - Bed to Chair, [...] Rehab Po (more content not included)... Normal [facility] URINALYSIS, REFLEX MICROSCOP ICon 10-24-2023 Bacteria LM.HPF (Urine sed) [#/Area] Rare Abnormal None Seen [facility] Comment on above: Order Comment: Speci men Type: BLOOD SPECIMEN [facility] Address: [address] [place] [address] Performed By: #### 1 58239, 44704-9 #### [facility] CLIA [id number] [address] [place] [address] [place] Bilirubin Ql (U) Negative Normal Negative [facility] Comment on above: Order Comment: Speci men Type: BLOOD SPECIMEN [facility] Address: [address] [place] [address] Performed By: #### 1 95, 74557-3 #### [facility] CLIA [id number] [address] [place] [address] [place] Clarity (Unsp spec) Clear Normal Clear [facility] Comment on above: Order Comment: Speci men Type: BLOOD SPECIMEN [facility] Address: [address] [place] [address] Performed By: #### 1 9, 36024-3 #### [facility] CLIA [id number] [address] [place] [address] [place] Color (U) Light Yellow Normal Yellow [facility] Comment on above: Order Comment: Speci men Type: BLOOD SPECIMEN [facility] Address: [address] [place] [address] Performed By: #### 1 70489, 63256-2 #### [facility] CLIA [id number] [address] [place] [address] [place] Glucose Test strip (U) [Mass/Vol] Trace Normal Trace, Negative [facility] Comment on above: Order Comment: Speci men Type: BLOOD SPECIMEN [facility] Address: [address] [place] [address] Performed By: #### 1 239, 27343-7 #### [facility] CLIA [id number] [address] [place] [address] [place] Hemoglobin Ql (U) 1+ Abnormal Negative, Trace Fa [facility] Comment on above: Order Comment: Speci men Type: BLOOD SPECIMEN [facility] Address: [address] [place] [address] Performed By: #### 1 02, #### [facility] CLIA [id number] [address] [place] [address] [place] Hyaline casts (Urine sed) [#/Area] 4-10 /LPF Abnormal 0 /LPF [facility] Comment on above: Order Comment: Speci men Type: BLOOD SPECIMEN Ordering Facility: [facility] Address: [address] [place] [address] Performed By: #### 1 63539, 31741-6 #### [facility] CLIA [id number] [address] [place] [address] Ketones Ql (U) Negative Normal Negative, Trace [facility] Comment on above: Order Comment: Speci men Type: BLOOD SPECIMEN Ordering Facility: [facility] Address: [address] [place] [address] Performed By: #### 1 239, 97454-0 #### [facility] CLIA [id number] [address] [place] [address] Leukocyte esterase Test strip Ql (U) 500 Moira/uL Abnormal Negative, 25 Moira/uL [facility] Comment on above: Order Comment: Speci men Type: BLOOD SPECIMEN Ordering Facility: [facility] Address: [address] [place] [address] Performed By: #### 1 4848, 00773-7 #### [facility] CLIA [id number] [address] [place] [address] [place] Nitrite Ql (U) Negative Normal Negative [facility] Comment on above: Order Comment: Speci men Type: BLOOD SPECIMEN Ordering Facility: [facility] Address: [address] [place] [address] Performed By: #### 1 9123-9, #### [facility] CLIA [id number] [address] [place] [address] [place] pH (U) 5.5 [pH] Normal 5.0-8.0 [facility] Comment on above: Order Comment: Speci men Type: BLOOD SPECIMEN Ordering Facility: [facility] Address: [address] [place] [address] Performed By: #### 1 9123-9, #### [facility] CLIA [id number] [address] [place] [address] [place] Protein (U) [Mass/Vol] 1+ Abnormal Trace, Negative [facility] Comment on above: Order Comment: Speci men Type: BLOOD SPECIMEN Ordering Facility: [facility] Address: [address] [place] [address] Performed By: #### 1 9123-9, #### [facility] CLIA [id number] [address] [place] [address] [place] RBC LM.HPF (Urine sed) [#/Area] /[HPF] Abnormal 0-3 /HPF [facility] Comment on above: Order Comment: Speci men Type: BLOOD SPECIMEN Ordering Facility: [facility] Address: [address] [place] [address] Performed By: #### 1 9123-9, 66959-8 #### [facility] CLIA [id number] [address] [place] [address] [place] Specific gravity (U) [Rel density] 1.015 Normal 1.005-1.030 [facility] Comment on above: Order Comment: Speci men Type: BLOOD SPECIMEN Ordering Facility: [facility] Address: [address] [place] [address] Performed By: #### 1 9123-9, 52778-9 #### [facility] CLIA [id number] [place] [address] [place] Urobilinogen Ql (U) Normal Normal Normal [facility] Comment on above: Order Comment: Speci men Type: BLOOD SPECIMEN Ordering Facility: [facility] Address: [address] [place] [address] Performed By: #### 1 9123-9, 00174-8 #### [facility] CLIA [id number] [address] [place] [address] [place] WBC LM.HPF (Urine sed) [#/Area] 11-25 /HPF Abnormal 0-5 /HPF [facility] Comment on above: Order Comment: Speci men Type: BLOOD SPECIMEN Ordering Facility: [facility] Address: [address] [place] [address] Performed By: #### 1 9123-9, 39223-2 #### [facility] CLIA [id number] [address] [place] [address] [place] US KIDNEY/BLADDERon 10-24-19 [...] Otherwise limited assessment especially on the left. Manager Critical Care: SAM Transcribe Date/Time: Oct 25 2023 7:19A Dictated by : KASHIF PIERSON MD This examination was interpreted and the report reviewed and electronically signed by: KASHIF PIERSON MD on Oct 25 2023 7:21AM EST [id number] N [facility] HNO ID: [id number] Author: LI WEN RDMS Service: Radiology Author Type: Gas Substation Operator Type: [facility] Filed: 10/23/2023 18:11 Note Text: [...] PATIENT PRESENTS WITH AN IMPLANTABLE OR ATTACHED SLEEVE SETTER: No RADIOLOGY DEPARTMENT: Ultrasound PERIPHERAL IV DATA: Not applicable SIGNED BY: Li Wen RDMS October 23, 2023 6:10 PM [facility] HNO ID: [id number] Author: MALOU NINO RT(Zarina) Service: Radiology Author Type: Technologist Type: [facility] Filed: 10/23/2023 17:32 Note Text: [...] PATIENT PRESENTS WITH AN IMPLANTABLE OR ATTACHED SLEEVE SETTER: No RADIOLOGY DEPARTMENT: General X-ray: Exam(s) Completed: Chest X-Ray PERIPHERAL IV DATA: Not applicable SIGNED BY: Malou Nino RT(R) October 23, 2023 5:32 PM Normal [facility] CBC W Auto Differential pane l (Bld)on 10-23-2023 Basophils (Bld) [#/Vol] 10*3/uL Normal <0.11 [facility] Comment on above: Order Comment: Speci men Type: BLOOD SPECIMEN Ordering Facility: [facility] Address: [address] [place] [address] Performed By: #### 1 6323-9, 49673-2 #### [facility] CLIA [id number] [address] [place] [address] [place] Basophils/100 WBC (Bld) 0.3 % Normal [facility] Comment on above: Order Comment: Speci men Type: BLOOD SPECIMEN Ordering Facility: [facility] Address: [address] [place] [address] Performed By: #### 1 2923-9, 14400-0 #### [facility] CLIA [id number] [address] [place] [address] [place] Differential cell count method Nom (Bld) Auto Normal [facility] Comment on above: Order Comment: Speci men Type: BLOOD SPECIMEN Ordering Facility: [facility] Address: [address] [place] [address] Performed By: #### 1 0323-9, 59061-8 #### [facility] CLIA [id number] [address] [place] [address] [place] Eosinophils (Bld) [#/Vol] 0.27 10*3/uL Normal <0.46 [facility] Comment on above: Order Comment: Speci men Type: BLOOD SPECIMEN Ordering Facility: [facility] Address: [address] [place] [address] Performed By: #### 1 7023-9, 79406-1 #### [facility] CLIA [id number] [address] [place] [address] [place] Eosinophils/100 WBC (Bld) 3.8 % Normal [facility] Comment on above: Order Comment: Speci men Type: BLOOD SPECIMEN Ordering Facility: [facility] Address: [address] [place] [address] Performed By: #### 1 23-9, 67573-9 #### [facility] CLIA [id number] [address] [place] [address] [place] Erythrocyte distribution width (RBC) [Ratio] 16.3 % High 11.5-15.0 [facility] Comment on above: Order Comment: Speci men Type: BLOOD SPECIMEN Ordering Facility: [facility] Address: [address] [place] [address] Performed By: #### 1 239, 27591-7 #### [facility] CLIA [id number] [address] [place] [address] [place] Hematocrit (Bld) [Volume fraction] 40.6 % Normal 39.0-51.0 [facility] Comment on above: Order Comment: Speci men Type: BLOOD SPECIMEN Ordering Facility: [facility] Address: [address] [place] [address] Performed By: #### 1 239, #### [facility] CLIA [id number] [address] [place] [address] [place] Hemoglobin (Bld) [Mass/Vol] 12.4 g/dL Low 13.0-17.0 [facility] Comment on above: Order Comment: Speci men Type: BLOOD SPECIMEN Ordering Facility: [facility] Address: [address] [place] [address] Performed By: #### 1 239, 16223-1 #### [facility] CLIA [id number] [address] [place] [address] [place] Immature granulocytes (Bld) [#/Vol] 0.04 10*3/uL Normal <0.10 [facility] Comment on above: Order Comment: Speci men Type: BLOOD SPECIMEN Ordering Facility: [facility] Address: [address] [place] [address] Performed By: #### 1 9123-9, 52811-0 #### [facility] CLIA [id number] [address] [place] [address] [place] Immature granulocytes/100 WBC (Bld) 0.6 % Normal [facility] Comment on above: Order Comment: Speci men Type: BLOOD SPECIMEN Ordering Facility: [facility] Address: [address] [place] [address] Performed By: #### 1 9123-9, 85409-8 #### [facility] CLIA [id number] [address] [place] [address] [place] Lymphocytes (Bld) [#/Vol] 1.04 10*3/uL Normal 1.00-4.00 [facility] Comment on above: Order Comment: Speci men Type: BLOOD SPECIMEN Ordering Facility: [facility] Address: [address] [place] [address] Performed By: #### 1 9123-9, #### [facility] CLIA [id number] [address] [place] [address] [place] Lymphocytes/100 WBC (Bld) 14.7 % Normal [facility] Comment on above: Order Comment: Speci men Type: BLOOD SPECIMEN Ordering Facility: [facility] Address: [address] [place] [address] Performed By: #### 1 9123-9, 59037-4 #### [facility] CLIA [id number] [address] [place] [address] [place] MCH (RBC) [Entitic mass] 27.1 pg Normal 26.0-34.0 [facility] Comment on above: Order Comment: Speci men Type: BLOOD SPECIMEN Ordering Facility: [facility] Address: [address] [place] [address] Performed By: #### 1 9123-9, 76451-6 #### [facility] CLIA [id number] [address] [place] [address] [place] MCHC (RBC) [Mass/Vol] 30.5 g/dL Normal 30.5-36.0 [facility] Comment on above: Order Comment: Speci men Type: BLOOD SPECIMEN Ordering Facility: [facility] Address: [address] [place] [address] Performed By: #### 1 9123-9, #### [facility] CLIA [id number] [address] [place] [address] [place] MCV (RBC) [Entitic vol] 88.6 fL Normal 80.0-100.0 [facility] Comment on above: Order Comment: Speci men Type: BLOOD SPECIMEN Ordering Facility: [facility] Address: [address] [place] [address] Performed By: #### 1 9123-9, #### [facility] CLIA [id number] [address] [place] [address] [place] Monocytes (Bld) [#/Vol] 0.74 10*3/uL Normal <0.87 [facility] Comment on above: Order Comment: Speci men Type: BLOOD SPECIMEN Ordering Facility: [facility] Address: [address] [place] [address] Performed By: #### 1 239, #### [facility] CLIA [id number] [address] [place] [address] [place] Monocytes/100 WBC (Bld) 10.4 % Normal [facility] Comment on above: Order Comment: Speci men Type: BLOOD SPECIMEN Ordering Facility: [facility] Address: [address] [place] [address] Performed By: #### 1 91239, #### [facility] CLIA [id number] [address] [place] [address] [place] Neutrophils (Bld) [#/Vol] 4.98 10*3/uL Normal 1.45-7.50 [facility] Comment on above: Order Comment: Speci men Type: BLOOD SPECIMEN Ordering Facility: [facility] Address: [address] [place] [address] Performed By: #### 1 9123-9, #### [facility] CLIA [id number] [address] [place] [address] [place] Neutrophils/100 WBC (Bld) 70.2 % Normal [facility] Comment on above: Order Comment: Speci men Type: BLOOD SPECIMEN Ordering Facility: [facility] Address: [address] [place] [address] Performed By: #### 1 23-9, #### [facility] CLIA [id number] [address] [place] [address] [place] Nucleated RBC (Bld) [#/Vol] 10*3/uL Normal <0.01 [facility] Comment on above: Order Comment: Speci men Type: BLOOD SPECIMEN Ordering Facility: [facility] Address: [address] [place] [address] Performed By: #### 1 9, #### [facility] CLIA [id number] [address] [place] [address] [place] Nucleated RBC/100 WBC (Bld) [Ratio] 0.0 /100 WBC Normal [facility] Comment on above: Order Comment: Speci men Type: BLOOD SPECIMEN Ordering Facility: [facility] Address: [address] [place] [address] Performed By: #### 1 23, #### [facility] CLIA [id number] [address] [place] [address] [place] Platelet mean volume (Bld) [Entitic vol] 8.9 fL Low 9.0-12.7 [facility] Comment on above: Order Comment: Speci men Type: BLOOD SPECIMEN Ordering Facility: [facility] Address: [address] [place] [address] Performed By: #### 1 9123-04, 35899-5 #### [facility] CLIA [id number] [address] [place] [address] [place] Platelets (Bld) [#/Vol] 220 10*3/uL Normal 150-400 [facility] Comment on above: Order Comment: Speci men Type: BLOOD SPECIMEN Ordering Facility: [facility] Address: [address] [place] [address] Performed By: #### 1 239, 49275-6 #### [facility] CLIA [id number] [address] [place] [address] [place] RBC (Bld) [#/Vol] 4.58 10*6/uL Normal 4.20-6.00 [facility] Comment on above: Order Comment: Speci men Type: BLOOD SPECIMEN Ordering Facility: [facility] Address: [address] [place] [address] Performed By: #### 1 9123-9, 53907-1 #### [facility] CLIA [id number] [address] [place] [address] [place] WBC (Bld) [#/Vol] 7.09 10*3/uL Normal 3.70-11.00 [facility] Comment on above: Order Comment: Speci men Type: BLOOD SPECIMEN Ordering Facility: [facility] Address: [address] [place] [address] Performed By: #### 1 9123-9, 47183-7 #### [facility] CLIA [id number] [address] [place] [address] [place] Comprehensive metabolic 2000 panelon 10-23-2023 Albumin [Mass/Vol] 3.5 g/dL Low 3.9-4.9 [facility] Comment on above: Order Comment: Speci men Type: BLOOD SPECIMEN Ordering Facility: [facility] Address: [address] [place] [address] Performed By: #### H STNT, 3016-3, 73289-1, 56572-4 #### [facility] CLIA [id number] [address] [place] [address] [place] ALP [Catalytic activity/Vol] 112 U/L Normal 38-113 [facility] Comment on above: Order Comment: Speci men Type: BLOOD SPECIMEN Ordering Facility: [facility] Address: [address] [place] [address] Performed By: #### H STNT, 3016-3, 69479-6, 82073-3 #### [facility] CLIA [id number] [address] [place] [address] [place] ALT [Catalytic activity/Vol] 19 U/L Normal 10-54 [facility] Comment on above: Order Comment: Speci men Type: BLOOD SPECIMEN Ordering Facility: [facility] Address: [address] [place] [address] Performed By: #### H STNT, 3016-3, 42182-3, 30971-5 #### [facility] CLIA [id number] [address] [place] [address] [place] Anion gap [Moles/Vol] 11 mmol/L Normal 9-18 [facility] Comment on above: Order Comment: Speci men Type: BLOOD SPECIMEN Ordering Facility: [facility] Address: [address] [place] [address] Performed By: #### H STNT, 3016-3, 55158-8, 07258-3 #### [facility] CLIA [id number] [address] [place] [address] [place] AST [Catalytic activity/Vol] 21 U/L Normal 14-40 [facility] Comment on above: Order Comment: Speci men Type: BLOOD SPECIMEN Ordering Facility: [facility] Address: [address] [place] [address] Performed By: #### H STNT, 3016-3, 61648-4, 39081-9 #### [facility] CLIA [id number] [address] [place] [address] [place] Bilirubin [Mass/Vol] 0.4 mg/dL Normal 0.2-1.3 [facility] Comment on above: Order Comment: Speci men Type: BLOOD SPECIMEN Ordering Facility: [facility] Address: [address] [place] [address] Performed By: #### H STNT, 3016-3, 53337-9, 32131-9 #### [facility] CLIA [id number] [address] [place] [address] [place] Calcium [Mass/Vol] 8.6 mg/dL Normal 8.5-10.2 [facility] Comment on above: Order Comment: Speci men Type: BLOOD SPECIMEN Ordering Facility: [facility] Address: [address] [place] [address] Performed By: #### H STNT, 3016-3, 06013-4, 59424-3 #### [facility] CLIA [id number] [address] [place] [address] [place] Chloride [Moles/Vol] 100 mmol/L Normal 97-105 [facility] Comment on above: Order Comment: Speci men Type: BLOOD SPECIMEN Ordering Facility: [facility] Address: [address] [place] [address] Performed By: #### H STNT, 3016-3, 50620-1, 33585-3 #### [facility] CLIA [id number] [address] [place] [address] [place] CO2 [Moles/Vol] 28 mmol/L Normal 22-30 [facility] Comment on above: Order Comment: Speci men Type: BLOOD SPECIMEN Ordering Facility: [facility] Address: [address] [place] [address] Performed By: #### H STNT, 3016-3, 66482-0, 10808-3 #### [facility] CLIA [id number] [address] [place] [address] [place] Creatinine [Mass/Vol] 2.00 mg/dL High 0.73-1.22 [facility] Comment on above: Order Comment: Speci men Type: BLOOD SPECIMEN Ordering Facility: [facility] Address: [address] [place] [address] Performed By: #### H STNT, 3016-3, 16200-5, 52497-4 #### [facility] CLIA [id number] [address] [place] [address] [place] Creatinine and Glomerular filtration rate.predicted panel (S/P/Bld) 37 mL/min/1.73m??? Low >=60 [facility] Comment on above: Order Comment: Speci men Type: BLOOD SPECIMEN Ordering Facility: [facility] Address: [address] [place] [address] Result Comment: Meredith mated Glomerular Filtration Rate [...] GFR. Performed By: #### H STNT, 3016-3, 69422-1, 01225-9 #### [facility] CLIA [id number] [address] [place] [address] [place] Glucose [Mass/Vol] 138 mg/dL High 74-99 [facility] Comment on above: Order Comment: Specbrianne men Type: BLOOD SPECIMEN Ordering Facility: [facility] Address: [address] [place] [address] Result Comment: The [place] Diabetes Association (ADA) provides guidance for cutoff [...] Standards of Medical Care in Diabetes 2016, [place] [employer]. Diabetes Care. 2016.39(Suppl 1). Performed By: #### H STNT, 3016-3, 05038-8, 33055-2 #### [facility] CLIA [id number] [place] [address] [place] Potassium [Moles/Vol] 4.6 mmol/L Normal 3.7-5.1 [facility] Comment on above: Order Comment: [place] Type: BLOOD SPECIMEN Ordering Facility: [facility] Address: [address] [place] [address] Performed By: #### H STNT, 3016-3, 94459-2, 37491-7 #### [facility] CLIA [id number] [address] [place] [id number] [place] Protein [Mass/Vol] 6.5 g/dL Normal 6.3-8.0 [facility] Comment on above: Order Comment: Speci men Type: BLOOD SPECIMEN Ordering Facility: [facility] Address: [address] [place] [address] Performed By: #### H STNT, 3016-3, 42170-7, 34620-5 #### [facility] CLIA [id number] [address] [place] [address] [place] Sodium [Moles/Vol] 139 mmol/L Normal 136-144 [facility] Comment on above: Order Comment: Speci men Type: BLOOD SPECIMEN Ordering Facility: [facility] Address: [address] [place] [address] Performed By: #### H STNT, 3016-3, 59250-8, 95162-4 #### [facility] CLIA [id number] [address] [place] [address] [place] Urea nitrogen [Mass/Vol] 60 mg/dL High 9-24 [facility] Comment on above: Order Comment: Speci men Type: BLOOD SPECIMEN Ordering Facility: [facility] Address: [address] [place] [address] Performed By: #### H STNT, 3016-3, 58984-7, 56059-4 #### [facility] CLIA [id number] [address] [place] [address] [place] ECG COMPLETEon 10-23-2023 ECG COMPLETE Ventricular Rate : 7 7 BPM Atrial Rate : 78 BPM P-R Interval : 180 ms QRS Duration : 97 ms Q-T Interval : 389 ms QTC Calculation(Bazett) : 441 ms Calculated P [facility] : 53 degrees Calculated R [place] [facility] : -76 degrees Calculated T [facility] : 65 degrees Sinus rhythm Left anterior fascicular block Abnormal ECG no stemi Confirmed by DARNELL YIN MD ([id number]), department editor JACQUELINE ROSALES ([id number]) on 10/24/2023 10:36:37 AM NAME : NICOLE LORA PID : [id number] : 1960 Gender : Male Race : ORD : [id number] Procedure Date : Oct 23 2023 20:16:04 Edit Date : Oct 24 2023 10:36:39 Diagnosis: Sinus rhythm Left anterior fascicular block Abnormal ECG no stemi Confirmed by DARNELL YIN MD ([id number]), department editor JACQUELINE ROSALES ([id number]) on 10/24/2023 10:36:37 AM Test Reason : Other - Specify Location : 402 : FVED [id number] Overread By : DARNELL YIN MD Edited By : JACQUELINE ROSALES Referred By : , Acquired by : [id number], [facility] ED NOTEon 10-23-2023 ED NOTE HNO ID: [id number] Author: PER HARDWICK RN Service: ? Author Type: Registered Nurse Type: ED Notes Filed: 10/23/2023 19:07 Note Text: Report to [facility] [place] [facility] ED PROV NOTEon 10-23-2023 ED PROV NOTE HNO ID: [id number] Author: DARNELL YIN MD Service: Emergency Medicine Author Type: Physician Type: ED Provider Notes Filed: 10/24/2023 15:12 Note Text: ED Provider Note Patient Name: Nicole Lora : 1960 SERVICE DATE: 10/23/23 History Patient presents with: Shortness of Breath: On 4L O2 13/03 Edema: Chronic BLE History provided by: Patient and relative (daughter) distribution center administrator used: No 63 year old male with history of DM, MRSA, urinary retention, CKD , chronic home O2 4L with complaint of swelling in leg. He has been in and out of the hospital for the past 6 weeks at [facility] and [facility]. He was initially found to be in [...] for the (more content not included)... Normal [facility] ED Triage Noteon 10-23-2023 ED Triage Note HNO ID: [id number] Author: OTONIEL ALBERTS MD Service: ? Author [...] diagnosis found. SIGNATURE: Otoniel Alberts MD Normal [facility] HIGH SENSITIVITY TROPONIN To n 10-23-2023 Troponin T.cardiac High sensitivity method [Mass/Vol] 167 ng/L High <12 [facility] Comment on above: Order Comment: Speci men Type: BLOOD SPECIMENOrdering Facility: [facility] Address: [address] [place] [address] Result Comment: When assessing risk for acute [...] day MACE. Performed By: #### H STNT ####[facility] [id number] [place] [address] [place] Troponin T.cardiac High sensitivity method [Mass/Vol] 172 ng/L High <12 [facility] Comment on above: Order Comment: [place] Type: BLOOD SPECIMEN Ordering Facility: [facility] Address: [address] [place] [address] Result Comment: When assessing risk for acute [...] MACE. Performed By: #### H STNT, 3016-3, 23761-1, 19992-4 #### [facility] CLIA [id number] [place] [address] [place] NT-proBNP SerPl-mCncon 10-22 Natriuretic peptide.B prohormone N-Terminal [Mass/Vol] 1124 pg/mL High <125 [facility] [facility] Comment on above: Order Comment: [place] Type: BLOOD SPECIMEN Ordering Facility: [facility] Address: [address] [place] [address] Performed By: #### H STNT, 3016-3, 97232-7, 76360-7 #### [facility] CLIA [id number] [place] [address] [place] TSH SerPl-aCncon 10-23-2023 TSH Qn 2.630 m[IU]/L Normal 0.270-4.200 [facility] Comment on above: Order Comment: Speci men Type: BLOOD SPECIMEN Ordering Facility: [facility] Address: [facility] [place] [address] Performed By: #### H STNT, 3016-3, 51780-0, 91271-2 #### [facility] CLIA [id number] [place] [address] [place] US DVT LOWER [...] OF THE LEFT AND RIGHT LOWER EXTREMITIES. Manager Critical Care: SAM Transcribe Date/Time: Oct 23 2023 6:44P Dictated by : PRESTON GONZALEZ MD This examination was interpreted and the report reviewed and electronically signed by: PRESTON GONZALEZ MD on Oct 23 2023 6:47PM EST [id number] N [facility] XR CHEST 1V FRONTAL PORTon 0 [...] venous hypertension and possible mild pulmonary edema. Manager Critical Care: [facility] Transcribe Date/Time: Oct 23 2023 5:22P Dictated by : RADHA KONG MD This examination was interpreted and the report reviewed and electronically signed by: RADHA KONG MD on Oct 23 2023 5:25PM EST [id number] N Normal [facility] Pre-Certification Formon Pre-Certification Form [id number]#1 .00TIFF Normal [facility] Ambulatory Visit Summaryon 0 10-18-2023 Ambulatory Visit Summary Normal [facility] Patient Educationon 10-18-19 Patient Education Normal [facility] Urology Office/Clinic Noteon 10-18-2023 Urology Office/Clinic Note Normal [facility] Comment on above: Result Comment: Elec tronically Signed By: Basia Claire\.br\Date and Time Signed: 10/18/23 09:42 EST\.br\Electronically Co-Signed By: Bailey Vásquez\.br\Date and Time Co-Signed: 10/18/23 09:44 EST\.br\Electronically Co-Signed By: Taz THOMAS MD\.br\Date and Time Co-Signed: 10/18/23 15:44 EST Consent for Treatmenton 09-22 Consent for Treatment [id number]#1 .00TIFF [facility] Discharge Instructionson Discharge Instructions [id number]#1 .00TIFF [facility] ED Clinical Summaryon 2023 ED Clinical Summary Normal [facility] ED Note-Physicianon 10-15-19 ED Note-Physician [facility] Comment on above: Result Comment: Elec tronically Signed By: Mone Martinez DO\.br\Date and Time Signed: 10/15/23 06:52 EST ED Patient Education Noteon 10-15-2023 ED Patient Education Note Normal [facility] ED Patient Summaryon 024 ED Patient Summary Normal [facility] Calcium [Mass/volume] in Ser um or PlasmaOrdered By: Yesi Murphy on 10-13-2023 Calcium [Mass/Vol] 8.2 mg/dL 8.6-10.3 [facility] Carbon dioxide, total [Moles /volume] in Serum or PlasmaOrdered By: Yesi Murphy on 10-13-2023 CO2 [Moles/Vol] 33.7 mmol/L 21.0-31.0 [facility] Chloride [Moles/volume] in S raymond or PlasmaOrdered By: Yesi Murphy on 10-13-2023 Chloride [Moles/Vol] 100 mmol/L 98-107 [facility] Creatinine [Mass/volume] in Serum or PlasmaOrdered By: Yesi Murphy on 10-13-2023 Creatinine [Mass/Vol] 1.91 mg/dL 0.70-1.30 [place] Glucose [Mass/volume] in Ser um or PlasmaOrdered By: Yesi Murphy on 10-13-2023 Glucose [Mass/Vol] 250 mg/dL 70-100 [facility] Comment on above: ADA recommended refe rence rangeRandom Glucose Reference Range is dependent on time and content of last meal. Glucose of more than 200 mg/dL in a nonstressed, ambulatory subject supports the diagnosis of Diabetes Mellitus. No Panel InformationOrdered By: Yesi Murphy on 10-13-2023 Estimated GFR (CKD-EPI) 38.661 mL/Min [facility] Creatinine Clearance (Chem N/A [facility] Potassium [Moles/volume] in Serum or PlasmaOrdered By: Yesi Murphy on 10-13-2023 Potassium [Moles/Vol] 4.3 mmol/L 3.5-5.1 [facility] Serum or plasma anion gap de terminationOrdered By: Yesi Murphy on 10-13-2023 Anion gap [Moles/Vol] 10.6 mmol/L 6.0-15.0 [facility] Sodium [Moles/volume] in Ser um or PlasmaOrdered By: Yesi Murphy on 10-13-2023 Sodium [Moles/Vol] 140 mmol/L 136-145 [facility] Urea nitrogen [Mass/volume] in Serum or PlasmaOrdered By: Yesi Murphy on 10-13-2023 Urea nitrogen [Mass/Vol] 52 mg/dL 7-25 [facility] Albumin [Mass/volume] in Ser um or Plasma by Bromocresol green (BCG) dye binding methoOrdered By: Gigi Cooper on 10-12-2023 Albumin BCG dye [Mass/Vol] 3.6 g/dL 3.5-5.7 [facility] Calcium [Mass/volume] in Ser um or PlasmaOrdered By: Gigi Cooper on 10-12-2023 Calcium [Mass/Vol] 8.8 mg/dL 8.6-10.3 [facility] Carbon dioxide, total [Moles /volume] in Serum or PlasmaOrdered By: Gigi Cooper on 10-12-2023 CO2 [Moles/Vol] 32.8 mmol/L 21.0-31.0 [facility] Chloride [Moles/volume] in S raymond or PlasmaOrdered By: Gigi Cooper on 10-12-2023 Chloride [Moles/Vol] 96 mmol/L 98-107 [facility] Creatinine [Mass/volume] in Serum or PlasmaOrdered By: Gigi Cooper on 10-12-2023 Creatinine [Mass/Vol] 1.95 mg/dL 0.70-1.30 [facility] Glucose Glucometer (BldC) [M ass/Vol]Ordered By: Yesi Murphy on 10-12-2023 Glucose [Mass/Vol] 224 mg/dL [facility] Comment on above: Random Glucose Refer ence Range is dependent on time and content of last meal. Glucose of more than 200 mg/dL in a nonstressed, ambulatory subject supports the diagnosis of Diabetes Mellitus. Glucose [Mass/volume] in Ser um or PlasmaOrdered By: Gigi Cooper on 10-12-2023 Glucose [Mass/Vol] 275 mg/dL 70-100 [facility] Comment on above: Delta: 157 on -[id number] recommended reference rangeRandom Glucose Reference Range is dependent on time and content of last meal. Glucose of more than 200 mg/dL in a nonstressed, ambulatory subject supports the diagnosis of Diabetes Mellitus. No Panel InformationOrdered By: Gigi Cooper on 10-12-2023 Estimated GFR (CKD-EPI) 37.711 mL/Min [facility] Creatinine Clearance (Chem 54.56 [facility] No Panel InformationOrdered By: Yesi Murphy on 10-12-2023 Bedside Glucose Comment Glu2: cleaned meter [facility] Phosphate [Mass/volume] in S raymond or PlasmaOrdered By: Gigi Cooper on 10-12-2023 Phosphate [Mass/Vol] 3.4 mg/dL 2.5-4.5 [facility] Potassium [Moles/volume] in Serum or PlasmaOrdered By: Gigi Cooper on 10-12-2023 Potassium [Moles/Vol] 3.9 mmol/L 3.5-5.1 [facility] Serum or plasma anion gap de terminationOrdered By: Gigi Cooper on 10-12-2023 Anion gap [Moles/Vol] 10.1 mmol/L 6.0-15.0 [facility] Sodium [Moles/volume] in Ser um or PlasmaOrdered By: Gigi Cooper on 10-12-2023 Sodium [Moles/Vol] 135 mmol/L 136-145 [facility] Urea nitrogen [Mass/volume] in Serum or PlasmaOrdered By: Gigi Cooper on 10-12-2023 Urea nitrogen [Mass/Vol] 48 mg/dL 7-25 [facility] Automated erythrocytes count in urine sediment (number/area)Ordered By: Gigi Cooper on 10-10-2023 RBC Auto (Urine sed) [#/Area] None seen [HPF] 0-4 [facility] Automated leukocytes count i n urine sediment (number/area)Ordered By: Gigi Cooper on 10-10-2023 WBC Auto (Urine sed) [#/Area] None seen [HPF] 0-4 [facility] Bilirubin Test strip Ql (U)O rdered By: Gigi Cooper on 10-10-2023 Bilirubin Ql (U) Negative Negative [facility] Color Auto (U)Ordered By: Tony Cooper on 10-10-2023 Color (U) Yellow Yellow [facility] Ketones Auto test strip (U) [Mass/Vol]Ordered By: Gigi Cooper on 10-10-2023 Ketones (U) [Mass/Vol] Negative Negative [facility] - UrinalysisOrder ed By: Gigi Cooper on 10-10-2023 Hyaline casts LM Ql (Urine sed) 0-8 [LPF] 0-8 [facility] Nitrite Test strip Ql (U)Ord ered By: Gigi Cooper on 10-10-2023 Nitrite Ql (U) Negative Negative [facility] Protein Auto test strip (U) [Mass/Vol]Ordered By: Gigi Cooper on 10-10-2023 Protein (U) [Mass/Vol] 30 mg/dL Negative [facility] Specific gravity Auto test s trip (U) [Rel density]Ordered By: Gigi Cooper on 10-10-2023 Specific gravity (U) [Rel density] 1.008 1.001-1.030 [facility] Squamous epithelial cells de tection in urine sediment by light microscopyOrdered By: Gigi Cooper on 10-10-2023 Epithelial cells.squamous LM Ql (Urine sed) None seen [HPF] 0-2 [facility] Urine bacteria detection by automated methodOrdered By: Gigi Cooper on 10-10-2023 Bacteria Auto Ql (U) None seen None Seen [facility] Urine clarity by refractomet ry automatedOrdered By: Gigi Cooper on 10-10-2023 Clarity Refractometry automated (U) Clear Clear [facility] Urine glucose measurement by automated test strip (mass/volume)Ordered By: Gigi Cooper on 10-10-2023 Glucose Auto test strip (U) [Mass/Vol] Normal mg/dL Normal [facility] Urine hemoglobin detection b y automated test stripOrdered By: Gigi Cooper on 10-10-2023 Hemoglobin Auto test strip Ql (U) Negative Negative [facility] Urine leukocyte esterase det ection by automated test stripOrdered By: Gigi Cooper on 10-10-2023 Leukocyte esterase Auto test strip Ql (U) Negative Negative [facility] Urobilinogen Auto test strip (U) [Mass/Vol]Ordered By: Gigi Cooper on 10-10-2023 Urobilinogen (U) [Mass/Vol] Normal mg/dL Normal [facility] pH Auto test strip (U)Ordere d By: Gigi Cooper on 10-10-2023 pH (U) 5.0 [pH] 5.0-9.0 [facility] Magnesium [Mass/volume] in S raymond or PlasmaOrdered By: Ramses Masters on 10-09-2023 Magnesium [Mass/Vol] 2.0 mg/dL 1.9-2.7 [facility] Nursing Note - Woundon 10-09 Nursing Note - Wound [id number]# 1.00TIFF Normal [facility] Creatinine [Mass/volume] in UrineOrdered By: Hood Zacarias on 10-08-2023 Creatinine (U) [Mass/Vol] 23.0 mg/dL 14.0-26.0 [facility] Protein [Mass/volume] in Uri neOrdered By: Hood Zacarias on 10-08-2023 Protein (U) [Mass/Vol] 40 mg/dL 0-9 [facility] Activated partial thrombopla stin time (aPTT) in platelet poor plasma by coagulation aOrdered By: Jason Mercado on 10-06-2023 aPTT Coag (PPP) [Time] 31.1 s 25.1-36.5 [facility] Comment on above: A hematocrit value g reater than 55% may lead to inaccurate results in coagulation testing. Patients having hematocrit values >55% require a special collection tube for coagulation studies. Please contact the laboratory at [phone] for redraw instructions. Automated erythrocytes count in urine sediment (number/area)Ordered By: Jason Mercado on 10-06-2023 RBC Auto (Urine sed) [#/Area] Innumerable [HPF] 0-4 [facility] Automated leukocytes count i n urine sediment (number/area)Ordered By: Jason Mercado on 10-06-2023 WBC Auto (Urine sed) [#/Area] 1-2 [HPF] 0-4 [facility] Bacterial blood cultureOrder ed By: Jason Mercado on 10-06-2023 Bacteria identified Cx Nom (Bld) NO GROWTH 5 DAYS [facility] Bacteria identified Cx Nom (Bld) NO GROWTH 5 DAYS [facility] Bacteria identified Cx Nom (Bld) NO GROWTH 5 DAYS [facility] Bacteria identified Cx Nom (Bld) NO GROWTH 5 DAYS [facility] Basophils Auto (Bld) [#/Vol] Ordered By: Jason Mercado on 10-06-2023 Basophils (Bld) [#/Vol] 0.1 10*3/uL 0.0-0.2 [facility] Basophils/100 WBC Auto (Bld) Ordered By: Jason Mercado on 10-06-2023 Basophils/100 WBC (Bld) 1.0 % . [facility] Bilirubin Test strip Ql (U)O rdered By: Jason Mercado on 10-06-2023 Bilirubin Ql (U) Negative Negative [facility] COVID CepheidOrdered By: Myra Mercado on 10-06-2023 SARS-CoV-2 (COVID-19) Ab IA Ql Negative Negative [facility] Comment on above: This is a duplicate [employer] Xpert Xpress CoV-2/Flu/RSV Plus RNA by RT-PCR result to be used for statistical tracking purpose only. SARS-CoV-2 (COVID-19) RNA ERIBERTO+probe Ql (Unsp spec) [facility] SARS-CoV-2 (COVID-19) RNA ERIBERTO+probe Ql (Unsp spec) [facility] Calcium [Mass/volume] in Ser um or PlasmaOrdered By: Jason Mercado on 10-06-2023 Calcium [Mass/Vol] 8.7 mg/dL 8.6-10.3 [facility] Carbon dioxide, total [Moles /volume] in Serum or PlasmaOrdered By: Jason Mercado on 10-06-2023 CO2 [Moles/Vol] 28.2 mmol/L 21.0-31.0 [facility] Chloride [Moles/volume] in S raymond or PlasmaOrdered By: Jason Mercado on 10-06-2023 Chloride [Moles/Vol] 102 mmol/L 98-107 [facility] Color Auto (U)Ordered By: Harpal Mercado on 10-06-2023 Color (U) Yellow Yellow [facility] Creatine kinase [Enzymatic a ctivity/volume] in Serum or PlasmaOrdered By: Jason Mercado on 10-06-2023 CK [Catalytic activity/Vol] 60 U/L 30-223 [facility] Creatinine [Mass/volume] in Serum or PlasmaOrdered By: Jason Mercado on 10-06-2023 Creatinine [Mass/Vol] 1.86 mg/dL 0.70-1.30 [facility] Eosinophils Auto (Bld) [#/Vo l]Ordered By: Jason Mercado on 10-06-2023 Eosinophils (Bld) [#/Vol] 0.2 10*3/uL 0.0-0.45 [facility] Eosinophils/100 WBC Auto (Bl d)Ordered By: Jason Mercado on 10-06-2023 Eosinophils/100 WBC (Bld) 3.0 % . [facility] Erythrocyte distribution wid th Auto (RBC) [Ratio]Ordered By: Jason Mercado on 10-06-2023 Erythrocyte distribution width (RBC) [Ratio] 18.3 % 12.0-14.8 [facility] Glucose [Mass/volume] in Ser um or PlasmaOrdered By: Jason Mercado on 10-06-2023 Glucose [Mass/Vol] 243 mg/dL 70-100 [facility] Comment on above: ADA recommended refe rence rangeRandom Glucose Reference Range is dependent on time and content of last meal. Glucose of more than 200 mg/dL in a nonstressed, ambulatory subject supports the diagnosis of Diabetes Mellitus. Hematocrit Auto (Bld) [Volum e fraction]Ordered By: Jason Mercado on 10-06-2023 Hematocrit (Bld) [Volume fraction] 40.5 % 38.8-50.0 [facility] Hemoglobin [Mass/volume] in BloodOrdered By: Jason Mercado on 10-06-2023 Hemoglobin (Bld) [Mass/Vol] 12.9 g/dL 13.0-17.0 [facility] INR in Platelet poor plasma by Coagulation assayOrdered By: Jason Mercado on 10-06-2023 INR Coag (PPP) [Relative time] 1.0 {INR} [facility] Comment on above: INR Therapeutic Rang e [...] on 10-06-2023 Ketones (U) [Mass/Vol] Negative Negative [facility] - Chemistry and C hemistry - challengeOrdered By: Jason Mercado on 10-06-2023 CO2 [Moles/Vol] 30.8 mmol/L 24.0-29.0 [facility] HCO3 (Bld) [Moles/Vol] 28.8 mmol/L 23.0-29.0 [facility] - UrinalysisOrder ed By: Jason Mercado on 10-06-2023 Hyaline casts LM Ql (Urine sed) 0-8 [LPF] 0-8 [facility] Lactate [Moles/volume] in Se rum or PlasmaOrdered By: Jason Mercado on 10-06-2023 Lactate [Moles/Vol] 0.7 mmol/L 0.5-2.2 [facility] Leukocytes [#/volume] correc maria guadalupe for nucleated erythrocytes in Blood by Automated counOrdered By: Jason Mercado on 10-06-2023 WBC corrected for nucl RBC Auto (Bld) [#/Vol] 7.0 10*3/uL 4.1-10.5 [facility] Lymphocytes Auto (Bld) [#/Vo l]Ordered By: Jason Mercado on 10-06-2023 Lymphocytes (Bld) [#/Vol] 0.8 10*3/uL 1.00-4.8 [facility] Lymphocytes/100 WBC Auto (Bl d)Ordered By: Jason Mercado on 10-06-2023 Lymphocytes/100 WBC (Bld) 11.2 % . [facility] MCH Auto (RBC) [Entitic mass ]Ordered By: Jason Mercado on 10-06-2023 MCH (RBC) [Entitic mass] 27.3 pg 27.5-35.2 [facility] MCHC Auto (RBC) [Mass/Vol]Or dered By: Jason Mercado on 10-06-2023 MCHC (RBC) [Mass/Vol] 31.9 g/dL 32.5-35.6 [facility] MCV Auto (RBC) [Entitic vol] Ordered By: Jason Mercado on 10-06-2023 MCV (RBC) [Entitic vol] 85.6 fL 83.5-101 [facility] Monocyte distribution width [Entitic volume] in Blood by AutomatedOrdered By: Jason Mercado on 10-06-2023 Monocyte distribution width Auto (Bld) [Entitic vol] 17.40 % 0.00-20.00 [facility] Monocytes Auto (Bld) [#/Vol] Ordered By: Jason Mercado on 10-06-2023 Monocytes (Bld) [#/Vol] 0.7 10*3/uL 0.0-0.8 [facility] Monocytes/100 WBC Auto (Bld) Ordered By: Jason Mercado on 10-06-2023 Monocytes/100 WBC (Bld) 10.0 % . [facility] Natriuretic peptide B [Mass/ Vol]Ordered By: Jason Mercado on 10-06-2023 Natriuretic peptide B (Bld) [Mass/Vol] 131.0 pg/mL 5-100 [facility] Neutrophils Auto (Bld) [#/Vo l]Ordered By: Jason Mercado on 10-06-2023 Neutrophils (Bld) [#/Vol] 5.2 10*3/uL 1.8-7.7 [facility] Neutrophils/100 WBC Auto (Bl d)Ordered By: Jason Mercado on 10-06-2023 Neutrophils/100 WBC (Bld) 74.8 % . [facility] Nitrite Test strip Ql (U)Ord ered By: Jason Mercado on 10-06-2023 Nitrite Ql (U) Negative Negative [facility] No Panel InformationOrdered By: Jason Mercado on 10-06-2023 Blood Gas Critical Value See comment [facility] Comment on above: Critical Value dickerson d on: 10/06/2023 at 21:16 Blood Gas Liter Flow 6 [facility] Blood Gas Sample Site Venous [facility] FiO2 45% % [facility] Oxygen Delivery Device Nasal cannula [facility] Venous Blood Base Excess 0.4 mmol/L -3.0-3.0 [facility] Ven[facility] Blood Oxygen Saturation 81.5 % 73.0-76.0 [facility] Venous Blood Partial Pressure CO2 63.9 mm[Hg] 38.0-50.0 [facility] Venous Blood pH 7.27 7.32-7.43 [facility] Estimated GFR (CKD-EPI) 39.912 mL/Min [facility] Creatinine Clearance (Chem 57.52 [facility] Nucleated erythrocytes [Pres ence] in Blood by Automated countOrdered By: Jason Mercado on 10-06-2023 Nucleated RBC Auto Ql (Bld) 0.1 /100{WBC} 0-0.5 [facility] Platelet mean volume Auto (B ld) [Entitic vol]Ordered By: Jason Mercado on 10-06-2023 Platelet mean volume (Bld) [Entitic vol] 6.8 fL 6.6-10.1 [facility] Platelets Auto (Bld) [#/Vol] Ordered By: Jason Mercado on 10-06-2023 Platelets (Bld) [#/Vol] 236 10*3/uL 150-450 [facility] Potassium [Moles/volume] in Serum or PlasmaOrdered By: Jason Mercado on 10-06-2023 Potassium [Moles/Vol] 5.6 mmol/L 3.5-5.1 [facility] Protein Auto test strip (U) [Mass/Vol]Ordered By: Jason Mercado on 10-06-2023 Protein (U) [Mass/Vol] 100 mg/dL Negative [facility] Prothrombin time (PT)Ordered By: Jason Mercado on 10-06-2023 PT Coag (PPP) [Time] 11.4 s 9.0-12.9 [facility] Comment on above: A hematocrit value g reater than 55% may lead to inaccurate results in coagulation testing. Patients having hematocrit values >55% require a special collection tube for coagulation studies. Please contact the laboratory at [phone] for redraw instructions. RBC Auto (Bld) [#/Vol]Ordere d By: Jason Mercado on 10-06-2023 RBC (Bld) [#/Vol] 4.73 10*6/uL 3.90-5.60 [facility] Serum or plasma anion gap de terminationOrdered By: Jason Mercado on 10-06-2023 Anion gap [Moles/Vol] 10.4 mmol/L 6.0-15.0 [facility] Sodium [Moles/volume] in Ser um or PlasmaOrdered By: Jason Mercado on 10-06-2023 Sodium [Moles/Vol] 135 mmol/L 136-145 [facility] Specific gravity Auto test s trip (U) [Rel density]Ordered By: Jason Mercado on 10-06-2023 Specific gravity (U) [Rel density] 1.013 1.001-1.030 [facility] Squamous epithelial cells de tection in urine sediment by light microscopyOrdered By: Jason Mercado 10-06-2023 Epithelial cells.squamous LM Ql (Urine sed) 0-1 [HPF] 0-2 [facility] Troponin I.cardiac [Mass/vol ume] in Serum or Plasma by Detection limit <= 0.01 ng/Ordered By: Jason Mercado on 10-06-2023 Troponin I.cardiac DL <= 0.01 ng/mL [Mass/Vol] 8.2 pg/mL 0.0-20.0 [facility] Urea nitrogen [Mass/volume] in Serum or PlasmaOrdered By: Jason Mercado on 10-06-2023 Urea nitrogen [Mass/Vol] 53 mg/dL 7-25 [facility] Urine bacteria detection by automated methodOrdered By: Jason Mercado 10-06-2023 Bacteria Auto Ql (U) None seen None Seen [facility] Urine clarity by refractomet ry automatedOrdered By: Jason Mercado on 10-06-2023 Clarity Refractometry automated (U) Clear Clear [facility] Urine glucose measurement by automated test strip (mass/volume)Ordered By: Jason Mercado on 10-06-2023 Glucose Auto test strip (U) [Mass/Vol] 100 mg/dL Normal [facility] Urine hemoglobin detection b y automated test stripOrdered By: Jason Mercado on 10-06-2023 Hemoglobin Auto test strip Ql (U) 3+ Negative [facility] Urine leukocyte esterase det ection by automated test stripOrdered By: Jason Mercado on 10-06-2023 Leukocyte esterase Auto test strip Ql (U) Negative Negative [facility] Urobilinogen Auto test strip (U) [Mass/Vol]Ordered By: Jason Mercado on 10-06-2023 Urobilinogen (U) [Mass/Vol] Normal mg/dL Normal [facility] WBC Auto (Bld) [#/Vol]Ordere d By: Jason Mercado on 10-06-2023 WBC (Bld) [#/Vol] 7.0 10*3/uL 4.1-10.5 [facility] pH Auto test strip (U)Ordere d By: Jason Mercado on 10-06-2023 pH (U) 5.0 [pH] 5.0-9.0 [facility] Ambulatory Visit Summaryon 0 10-05-2023 Ambulatory Visit Summary Normal [address], [address] [place] [address]- \.br\ 2023 9:00 AM EDT \.br\ With:\.br\ Where: [facility]\.br\ Monday 1:15 PM EDT \.br\ With:\.br\ Where: [facility]\.br\ Medications\.br\ What How Much [...] day\.br\ Unchanged Misc Prescription (Freestyle Sage 2 [place]) See instructions Use daily with sensor \.br\ Unchanged Misc Prescription (Freestyle Sage 2 Sensors) See instructions Apply one q 14 days \.br\ Unchanged Misc Prescription (Glucometer test strips) See instructions Test TID DX E11.40 on insulin \.br\ Unchanged Misc Prescription (Glucometer) See instructions Diabetes mellitus with neuropathy Dispense 1 Glucometer \.br\ Unchanged Misc Prescription (Insulin Pen [place] 31g x 8 mm) See instructions Use [...] for choosing us for your care.\.br\ \.br\ [facility] Consent for Procedure/Surger yon 10-05-2023 Consent for Procedure/Surgery [id number]#1 .00TIFF [facility] Consent for Treatmenton 09-21 Consent for Treatment [id number]#1 .00TIFF [facility] HBOon 10-04-2023 HBO [id number]# 1.00TIFF [facility] Multi-Wound Charton 10-04-19 24 Multi-Wound Chart [id number]# 1.00TIFF [facility] Nursing Assessment - Woundon 10-04-2023 Nursing Assessment - Wound [id number]# 1.00TIFF [facility] Nursing Note - Woundon 10-04 Nursing Note - Wound [id number]# 1.00TIFF [facility] Physician Orderon 10-04-2023 Physician Order [id number]# 1.00TIFF [facility] Physician Order [id number]# 2.00TIFF [facility] Procedure - Woundon 10-04-19 Procedure - Wound [id number]# 1.00TIFF [facility] Progress Note - Woundon 09-21 Progress Note - Wound [id number]# 2.00TIFF [facility] Screenson 10-03-2023 Screens [id number]# 1.00TIFF [facility] CHEMISTRYOrdered By: Lab ROP User on 10-02-2023 Glucose [Mass/Vol] 224 mg/dL High 55 - 99 mg/dL FT C POC Subsection POC Device SN [id number] 1 Invalid Interpretation Code [facility] POC Subsection POC User ID [id number] 1 Invalid Interpretation Code [facility] POC Subsection POC Username Deja Boothe Invalid Interpretation Code [facility] POC Subsection Capillary Glucose POCon 09-21 Glucose [Mass/Vol] 224 mg/dL High 55-99 [facility] Comment on above: Performed By: #### [id number] ####[facility] [id number] [place] [address] Patient Educationon 10-02-19 24 Patient Education [facility] Pre-Certification Formon Pre-Certification Form [id number]#1 .00TIFF [facility] Urology Office/Clinic Noteon 10-02-2023 Urology Office/Clinic Note Normal [facility] Comment on above: Result Comment: Elec tronically Signed By: BRYAN Bahena APRN, Gisselle Glasgow\.br\Date and Time Signed: 10/02/23 07:51 EST Consent for Procedure/Surger yon 09-28-2023 Consent for Procedure/Surgery [id number]#1 .00TIFF [facility] Correspondence - [place]ound[place] Correspondence - Wound [id number]#1 .00TIFF [facility] Correspondence - Wound [id number]#1 .00TIFF [facility] Coding Queryon 09-27-2023 Coding Query [id number]# 1.00TIFF [facility] Insurance Correspondenceon 0 09-27-2023 Insurance Correspondence [id number]#1 .00TIFF [facility] C Urineon 09-26-2023 Bacteria identified Cx Nom (U) Normal [facility] Comment on above: Performed By: #### 2 600914, 53762047 ####[facility] [address] [place] [address] Insurance Correspondenceon 0 09-25-2023 Insurance Correspondence [id number]#1 .00TIFF Normal [facility] BMPon 09-24-2023 Anion gap [Moles/Vol] 11 mmol/L Normal 6-16 [facility] Comment on above: Performed By: #### 1 5365225, 0418276, 7141244 ####[facility] [address] [place] [address] BUN/Creat Ratio 29 No Units High 10-20 [facility] Comment on above: Performed By: #### 1 8678625, 4912655, 0496968 ####[facility] [address] [place] [address] Calcium [Mass/Vol] 8.7 mg/dL Low 8.9-11.1 [facility] Comment on above: Performed By: #### 1 4346127, 3032084, 6124374 ####[facility] [address] [place] [address] Chloride [Moles/Vol] 103 mmol/L Normal 101-111 [facility] Comment on above: Performed By: #### 1 2953137, 1986036, 1371293 ####[facility] [address] [place] [address] CO2 [Moles/Vol] 28 mmol/L Normal 21-31 [facility] Comment on above: Performed By: #### 1 5864546, 5321215, 3510610 ####[facility] [address] [place] [address] Creatinine [Mass/Vol] 1.7 mg/dL High 0.5-1.3 [facility] Comment on above: Performed By: #### 1 8100105, 0717993, 1431906 ####[facility] [address] [place] [address] Glucose [Mass/Vol] 280 mg/dL High 55-199 [facility] Comment on above: Performed By: #### 1 3823583, 7054768, 4670734 ####[address] [place] [address] Potassium [Moles/Vol] 4.9 mmol/L Normal 3.5-5.3 [facility] Comment on above: Performed By: #### 1 1270759, 5235858, 1883987 ####[address] [address] Sodium [Moles/Vol] 137 mmol/L Normal 135-145 [facility] Comment on above: Performed By: #### 1 9704606, 1578530, 7587226 ####[address] [address] Urea nitrogen [Mass/Vol] 50 mg/dL High 5-21 [facility] Comment on above: Performed By: #### 1 0042696, 2694000, 1399137 ####[address] [address] CBC w/ Auto Diffon 4 Basophil Absolute 0.0 E9/L Normal 0.0-0.2 [facility] Comment on above: Performed By: #### 1 5360040, 2990089, 3580027 ####[address] [address] Basophils/100 WBC (Bld) 0.5 % Normal 0.0-2.0 [facility] Comment on above: Performed By: #### 1 1881467, 1453903, 0546146 ####[address] [address] Eos Absolute 0.3 E9/L Normal 0.0-0.5 [facility] Comment on above: Performed By: #### 1 5845303, 1549227, 7946460 ####[address] [address] Eosinophils/100 WBC (Bld) 4.7 % Normal 0.0-8.0 [facility] Comment on above: Performed By: #### 1 4708644, 6909309, 6766303 ####[address] [address] Erythrocyte distribution width (RBC) [Ratio] 17.8 % High 10.9-14.2 [facility] Comment on above: Performed By: #### 1 3220105, 2047243, 5198326 ####[place] [address] Hematocrit (Bld) [Volume fraction] 44.0 % Normal 37.7-49.0 [facility] Comment on above: Performed By: #### 1 6079849, 3318794, 7771853 ####[place] [address] Hemoglobin (Bld) [Mass/Vol] 13.9 g/dL Normal 13.5-17.5 [facility] Comment on above: Performed By: #### 1 6498729, 2389204, 6369320 ####[place] [address] Lymph Absolute 1.1 E9/L Normal 1.0-4.0 [facility] Comment on above: Performed By: #### 1 6082639, 5187506, 6858707 ####[place] [address] Lymphocytes/100 WBC (Bld) 20.1 % Normal 14.0-50.0 [facility] Comment on above: Performed By: #### 1 0896897, 7504378, 9897265 ####[address] [address] MCH (RBC) [Entitic mass] 27.3 pg Normal 27.0-34.0 [facility] Comment on above: Performed By: #### 1 2451164, 4119889, 1775466 ####[place] [address] MCHC (RBC) [Mass/Vol] 31.9 g/dL Normal 31.4-36.0 [facility] Comment on above: Performed By: #### 1 8120553, 5006347, 6661651 ####[facility] [address] [place] [address] MCV (RBC) [Entitic vol] 85.7 fL Normal 80.0-100.0 [facility] Comment on above: Performed By: #### 1 9147670, 9008366, 3211690 ####[address] [address] [place]uphin Absolute 0.6 E9/L Normal 0.2-1.0 [facility] Comment on above: Performed By: #### 1 0821442, 9940931, 9675174 ####[address] [address] Monocytes/100 WBC (Bld) 11.0 % Normal 4.0-14.0 [facility] Comment on above: Performed By: #### 1 5982235, 4941669, 9093564 ####[address] [address] Neutro Absolute 3.5 E9/L Normal 2.0-7.5 [facility] Comment on above: Performed By: #### 1 6747039, 9936861, 5943982 ####[address] [address] Neutro Auto 63.7 % Normal 36.0-75.0 [facility] Comment on above: Performed By: #### 1 8424346, 9008163, 1739736 ####[address] [address] Platelet 254.0 E9/L Normal 150.0-500.0 [facility] Comment on above: Performed By: #### 1 2816829, 7592008, 7875307 ####[address] [address] Platelet mean volume (Bld) [Entitic vol] 6.9 fL Normal 6.4-10.8 [facility] Comment on above: Performed By: #### 1 6260554, 7895936, 0758621 ####[facility] [address] [place] [address] RBC 5.1 E12/L Normal 4.3-5.9 [facility] Comment on above: Performed By: #### 1 9816345, 8634375, 7762324 ####[facility] [address] [place] [address] WBC 5.5 E9/L Normal 4.0-11.0 [facility] Comment on above: Performed By: #### 1 6276725, 9796028, 1742785 ####[facility] [address] [place] [address] CHEMISTRYOrdered By: SYSTEM SYSTEM on 09-24-2023 Anion [...] Chem Consent for Treatmenton Consent for Treatment [id number]#1 .00TIFF Normal [facility] Discharge Instructionson Discharge Instructions [id number]# 1.00TIFF Normal [facility] ED Clinical Summaryon 2023 ED Clinical Summary Normal Gina srinivasan [facility] ED Note-Physicianon 09-24-19 ED Note-Physician Normal [facility] Comment on above: Result Comment: Elec tronically Signed By: Jose Miguel Phan DO\.br\Date and Time Signed: 09/24/23 21:39 EST ED Patient Education Noteon 09-24-2023 ED Patient Education Note Normal [facility] ED Patient Summaryon 024 ED Patient Summary Normal [facility] HEMATOLOGYOrdered By: SYSTEM SYSTEM on 09-24-2023 [...] Normal 80.0 - 100.0 fL Remisol Heme [place] Absolute 0.6 E9/L Normal 0.2 - 1.0 [...] Urobilinogen Qn (U) 0.2 {Itz'U}/dL Normal 0.0-1.0 [facility] Comment on above: Performed By: #### 2 295513, 30168004 ####[facility] [address] [place] [address] Bacteria LM Ql (Urine sed) TRACE Normal Trace [facility] Comment on above: Performed By: #### 2 137699, 45782117 ####[facility] [address] [place] [address] Bilirubin Ql (U) 1+ Abnormal Negative [facility] Comment on above: Performed By: #### 2 911220, 15259580 ####[facility] [address] [place] [address] Clarity (U) CLOUDY Abnormal Clear [facility] Comment on above: Performed By: #### 2 553887, 60618456 ####[facility] [address] [place] [address] Color (U) RED Abnormal Yellow [facility] Comment on above: Performed By: #### 2 765023, 90804900 ####[facility] [address] [place] [address] Epithelial cells.squamous LM.HPF (Urine sed) [#/Area] 3-4 Normal 0-2 [facility] Comment on above: Performed By: #### 2 868026, 94299267 ####[facility] [address] [place] [address] Glucose Test strip (U) [Mass/Vol] 2+ Abnormal Negative [facility] Comment on above: Performed By: #### 2 455064, 63688326 ####[facility] [address] [place] [address] Hemoglobin Ql (U) 3+ Abnormal Negative [facility] Comment on above: Performed By: #### 2 447100, 72716980 ####[place] [address] Ketones (U) [Mass/Vol] Negative Normal Negative [facility] Comment on above: Performed By: #### 2 478116, 15500425 ####[facility] [address] [place], [place] [address] Arispe.plasma/Lithi um.RBC (Bld) [Mass ratio] >75 Abnormal 0-3 [facility] Comment on above: Performed By: #### 2 760446, 22378920 ####[facility] [address] [place] [address] Nitrite Ql (U) Positive Abnormal Negative [facility] Comment on above: Performed By: #### 2 040389, 00576252 ####[facility] [address] [place] [address] pH (U) 5.5 [pH] Invalid Interpretation Code 5.0-9.0 [facility] Comment on above: Performed By: #### 2 206484, 77095844 ####[facility] [address] [place] [address] Protein (U) [Mass/Vol] 3+ Abnormal Negative [facility] Comment on above: Performed By: #### 2 948484, 71434307 ####[address] [address] Specific gravity (U) [Rel density] 1.025 Invalid Interpretation Code 1.005-1.030 [facility] Comment on above: Performed By: #### 2 482909, 24824821 ####[facility] [address] [place] [address] Type of Urine collection method Catheter Normal [facility] Comment on above: Performed By: #### 2 619635, 83806835 ####[facility] [address] [place] [address] WBC Auto Ql (U) Negative Normal Negative [facility] Comment on above: Performed By: #### 2 188490, 40842023 ####[place] [address] WBC LM.HPF (Urine sed) [#/Area] 0-5 Normal 0-5 [facility] Comment on above: Performed By: #### 2 841115, 83331800 ####[facility] [address] [place] [address] URINALYSISOrdered By: Richa Quinn on 09-24-2023 Bacteria [...] PM) Normal Negative [facility] UA Auto SS Arispe.plasma/Lithi um.RBC (Bld) [Mass ratio] >75 /HPF Invalid [...] FT UA Auto SS Urobilinogen Qn (U) 0.7858389 {Itz'U}/dL Normal 0.0 - 1.0 EU/dL FT UA Auto SS WBC Auto Ql (U) Negative (09/24/23 8:26 PM) Normal Negative FT UA Auto SS WBC LM.HPF (Urine sed) [#/Area] 0-5 /HPF Normal 0-5/HPF FT UA Auto SS eGFRon 09-24-2023 eGFR 44 mL/min/1.73 m2 Low >=59 [facility] Comment on above: Order Comment: Order added by Discern Expert. Performed By: #### 1 9426622, 7243804, 9120659 ####[facility] [address] [place] [address] Insurance Correspondence Off iceon 09-20-2023 Insurance Correspondence Office [id number]# 1.00TIFF Normal [facility] C Blood Charcoalon Blood Culture Charcoal Normal [facility] Comment on above: Performed By: #### 1 8213164 ####[facility] [address] [place] [address] Discharge Instructionson Discharge Instructions [id number]# 1.00TIFF Normal [facility] Consent for Procedure/Surger yon 09-18-2023 Consent for Procedure/Surgery [id number]#1 .00TIFF Normal [facility] Consent for Treatmenton 08-22 Consent for Treatment [id number]#1 .00TIFF Normal [facility] Discharge Instructionson Discharge Instructions [id number] #1.00TIFF Normal [facility] ED Clinical Summaryon 2023 ED Clinical Summary Normal [facility] ED Note-Physicianon 09-17-19 24 ED Note-Physician Normal [facility] Comment on above: Result Comment: Elec tronically Signed By: Shira Snider, Alejandro \.br\Date and Time Signed: 09/17/23 19:00 EST ED Patient Education Noteon 09-17-2023 ED Patient Education Note Normal [facility] ED Patient Summaryon 024 ED Patient Summary Normal [facility] BMPon 09-16-2023 Anion gap [Moles/Vol] 10 mmol/L Normal 6-16 [facility] Comment on above: Performed By: #### 2 733613, 99871667, 6854933, 1086555 ####[facility] [address] [place] [address] BUN/Creat Ratio 24 No Units High 10-20 [facility] Comment on above: Performed By: #### 2 598914, 31705801, 7148081, 3831880 ####[facility] [address] [place] [address] Calcium [Mass/Vol] 8.2 mg/dL Low 8.9-11.1 [facility] Comment on above: Performed By: #### 2 440247, 18680146, 7630206, 1194559 ####[facility] [address] [place] [address] Chloride [Moles/Vol] 97 mmol/L Low 101-111 [facility] Comment on above: Performed By: #### 2 423982, 10970848, 9754251, 1139840 ####[facility] [address] [place] [address] CO2 [Moles/Vol] 33 mmol/L High 21-31 [facility] Comment on above: Performed By: #### 2 327652, 50766688, 5684522, 3786614 ####[facility] [address] [place] [address] Creatinine [Mass/Vol] 1.6 mg/dL High 0.5-1.3 [facility] Comment on above: Performed By: #### 2 775598, 40234245, 0917642, 1687461 ####[facility] [address] [place] [address] Glucose [Mass/Vol] 191 mg/dL Normal 55-199 [facility] Comment on above: Performed By: #### 2 118238, 34067190, 9170258, 3739537 ####[facility] [address] [place] [address] Potassium [Moles/Vol] 4.0 mmol/L Normal 3.5-5.3 [facility] Comment on above: Performed By: #### 2 198748, 86752484, 9180889, 6609701 ####[facility] [address] [place] [address] Sodium [Moles/Vol] 136 mmol/L Normal 135-145 [facility] Comment on above: Performed By: #### 2 667541, 42107753, 2778444, 5663364 ####[facility] [address] [place] [address] Urea nitrogen [Mass/Vol] 38 mg/dL High 5-21 [facility] Comment on above: Performed By: #### 2 293973, 49782138, 9561174, 0538005 ####[address] [place] [address] CBC w/ Auto Diffon 4 Basophil Absolute 0.0 E9/L Normal 0.0-0.2 [facility] Comment on above: Performed By: #### 2 369913, 13792000, 5812442, 4182683 ####[address] [address] Basophils/100 WBC (Bld) 0.7 % Normal 0.0-2.0 [facility] Comment on above: Performed By: #### 2 908548, 81715880, 7270374, 5070808 ####[address] [address] Eos Absolute 0.4 E9/L Normal 0.0-0.5 [facility] Comment on above: Performed By: #### 2 196131, 11299537, 7463137, 4311096 ####[address] [address] Eosinophils/100 WBC (Bld) 6.9 % Normal 0.0-8.0 [facility] Comment on above: Performed By: #### 2 937788, 82672830, 3464916, 2410300 ####[address] [address] Erythrocyte distribution width (RBC) [Ratio] 17.4 % High 10.9-14.2 [facility] Comment on above: Performed By: #### 2 738004, 78308789, 0668241, 9905540 ####[address] [address] Hematocrit (Bld) [Volume fraction] 44.0 % Normal 37.7-49.0 [facility] Comment on above: Performed By: #### 2 616496, 10724731, 6093320, 1606209 ####[address] [address] Hemoglobin (Bld) [Mass/Vol] 13.8 g/dL Normal 13.5-17.5 [facility] Comment on above: Performed By: #### 2 688572, 05064797, 9506819, 4162821 ####[address] [place] [address] Lymph Absolute 1.4 E9/L Normal 1.0-4.0 [facility] Comment on above: Performed By: #### 2 049481, 34716819, 6208297, 0792171 ####[address] [address] Lymphocytes/100 WBC (Bld) 21.5 % Normal 14.0-50.0 [facility] Comment on above: Performed By: #### 2 742489, 77835490, 4477464, 2565271 ####[address] [address] MCH (RBC) [Entitic mass] 27.0 pg Normal 27.0-34.0 [facility] Comment on above: Performed By: #### 2 252801, 90368357, 3374517, 5181699 ####[address] [address] MCHC (RBC) [Mass/Vol] 31.3 g/dL Low 31.4-36.0 [facility] Comment on above: Performed By: #### 2 311550, 29493094, 5045477, 4878861 ####[address] [address] MCV (RBC) [Entitic vol] 86.3 fL Normal 80.0-100.0 [facility] Comment on above: Performed By: #### 2 632630, 17641959, 0750729, 4799028 ####[address] [address] [place] Absolute 0.8 E9/L Normal 0.2-1.0 [facility] Comment on above: Performed By: #### 2 891057, 10549894, 2939068, 7202026 ####[address] [place] [address] Monocytes/100 WBC (Bld) 13.0 % Normal 4.0-14.0 [facility] Comment on above: Performed By: #### 2 548928, 99312225, 1045774, 6101813 ####[address] [address] Neutro Absolute 3.8 E9/L Normal 2.0-7.5 [facility] Comment on above: Performed By: #### 2 001667, 58559549, 1526282, 2918979 ####[address] [address] Neutro Auto 57.9 % Normal 36.0-75.0 [facility] Comment on above: Performed By: #### 2 229622, 23942446, 3054966, 4132791 ####[address] [address] Platelet 231.0 E9/L Normal 150.0-500.0 [facility] Comment on above: Performed By: #### 2 390389, 03780168, 0490748, 0395027 ####[address] [address] Platelet mean volume (Bld) [Entitic vol] 7.0 fL Normal 6.4-10.8 [facility] Comment on above: Performed By: #### 2 869672, 46323705, 1747575, 0915944 ####[address] [address] RBC 5.1 E12/L Normal 4.3-5.9 [facility] Comment on above: Performed By: #### 2 562180, 85140192, 3491227, 1971282 ####[address] [place] [address] WBC 6.5 E9/L Normal 4.0-11.0 [facility] Comment on above: Performed By: #### 2 463023, 68304496, 5652906, 2563377 ####[facility] [address] [place] [address] Capillary Glucose POCon 08-22 Glucose [Mass/Vol] 198 mg/dL High 55-99 [facility] Comment on above: Result Comment: Thelma maxwell RN/ Performed By: #### 2 27148054 ####[facility] [address] [place] [address] Inpatient Clinical Summaryon 09-16-2023 Inpatient Clinical Summary Normal [facility] Inpatient Patient Summaryon 09-16-2023 Inpatient Patient Summary Normal [facility] Inpatient Patient Summary Normal [facility] Interdisciplinary Note - Yimi e Manageron 09-16-2023 Interdisciplinary Note - E M Assembler Patient DC before CRM rounded in room today Normal [facility] Comment on above: Result Comment: Elec tronically Signed By: Jodee Giang\.br\Date and Time Signed: 09/16/23 11:26 EST Magnesiumon 09-16-2023 Magnesium [Mass/Vol] 1.9 mg/dL Normal 1.3-2.4 [facility] Comment on above: Performed By: #### 2 352855, 51763945, 3655184, 2344848 ####[facility] [address] [place] [address] Monitor Recordon 09-16-2023 Monitor Record [id number]# 1.00TIFF Normal [facility] Monitor Record [id number]# 1.00TIFF Normal [facility] Monitor Record [id number]# 1.00TIFF Normal [facility] eGFRon 09-16-2023 eGFR 48 mL/min/1.73 m2 Low >=59 [facility] Comment on above: Order Comment: Order added by Discern Expert. Performed By: #### 2 142772, 14452723, 2216393, 6679670 ####[facility] [address] [place] [address] BMPon 09-15-2023 Anion gap [Moles/Vol] 8 mmol/L Normal 6-16 [facility] Comment on above: Performed By: #### 2 970910, 8357778, 82472828 ####[facility] [address] [place] [address] BUN/Creat Ratio 25 No Units High 10-20 [facility] Comment on above: Performed By: #### 2 037503, 5320510, 29166149 ####[facility] [address] [place] [address] Calcium [Mass/Vol] 8.4 mg/dL Low 8.9-11.1 [facility] Comment on above: Performed By: #### 2 329980, 6143851, 02634022 ####[facility] [address] [place] [address] Chloride [Moles/Vol] 94 mmol/L Low 101-111 [facility] Comment on above: Performed By: #### 2 878398, 3755317, 71185574 ####[facility] [address] [place] [address] CO2 [Moles/Vol] 38 mmol/L High 21-31 [facility] Comment on above: Performed By: #### 2 083521, 3094264, 41405134 ####[facility] [address] [place] [address] Creatinine [Mass/Vol] 1.7 mg/dL High 0.5-1.3 [facility] Comment on above: Performed By: #### 2 113248, 0988199, 00872082 ####[facility] [address] [place] [address] Glucose [Mass/Vol] 154 mg/dL Normal 55-199 [facility] Comment on above: Performed By: #### 2 988597, 6719082, 78886882 ####[facility] [address] [place] [address] Potassium [Moles/Vol] 4.1 mmol/L Normal 3.5-5.3 [facility] Comment on above: Performed By: #### 2 130656, 7437867, 53990040 ####[facility] [address] [place] [address] Sodium [Moles/Vol] 136 mmol/L Normal 135-145 [facility] Comment on above: Performed By: #### 2 499096, 7208846, 88763062 ####[facility] [address] [place] [address] Urea nitrogen [Mass/Vol] 43 mg/dL High 5-21 [facility] Comment on above: Performed By: #### 2 221988, 2815460, 83532832 ####[address] [place] [address] C Woundon 09-15-2023 Wound Culture Normal [facility] Comment on above: Performed By: #### 2 648491 ####[address] [address] CBC w/ Auto Diffon 4 Basophil Absolute 0.0 E9/L Normal 0.0-0.2 [facility] Comment on above: Performed By: #### 2 379610 ####[address] [address] Basophils/100 WBC (Bld) 0.6 % Normal 0.0-2.0 [facility] Comment on above: Performed By: #### 2 150781 ####[address] [address] Eos Absolute 0.3 E9/L Normal 0.0-0.5 [facility] Comment on above: Performed By: #### 2 543041 ####[address] [address] Eosinophils/100 WBC (Bld) 5.0 % Normal 0.0-8.0 [facility] Comment on above: Performed By: #### 2 027785 ####[address] [place] [address] Erythrocyte distribution width (RBC) [Ratio] 17.9 % High 10.9-14.2 [facility] Comment on above: Performed By: #### 2 702418 ####[address] [address] Hematocrit (Bld) [Volume fraction] 45.0 % Normal 37.7-49.0 [facility] Comment on above: Performed By: #### 2 564011 ####[address] [address] Hemoglobin (Bld) [Mass/Vol] 14.3 g/dL Normal 13.5-17.5 [facility] Comment on above: Performed By: #### 2 592987 ####[address] [address] Lymph Absolute 1.3 E9/L Normal 1.0-4.0 [facility] Comment on above: Performed By: #### 2 705289 ####[address] [address] Lymphocytes/100 WBC (Bld) 19.3 % Normal 14.0-50.0 [facility] Comment on above: Performed By: #### 2 171277 ####[address] [address] MCH (RBC) [Entitic mass] 27.5 pg Normal 27.0-34.0 [facility] Comment on above: Performed By: #### 2 869163 ####[address] [address] MCHC (RBC) [Mass/Vol] 31.6 g/dL Normal 31.4-36.0 [facility] Comment on above: Performed By: #### 2 981245 ####[address] [address] MCV (RBC) [Entitic vol] 87.1 fL Normal 80.0-100.0 [facility] Comment on above: Performed By: #### 2 472901 ####[facility] [address] [place] [address] Dauphin Absolute 0.7 E9/L Normal 0.2-1.0 [facility] Comment on above: Performed By: #### 2 [id number] ####[facility] Rnomfvdimt509 [facility] [place] [address] Monocytes/100 WBC (Bld) 10.9 % Normal 4.0-14.0 [facility] Comment on above: Performed By: #### 2 535739 ####[facility] [address] [place] [address] Neutro Absolute 4.2 E9/L Normal 2.0-7.5 [facility] Comment on above: Performed By: #### 2 012112 ####[address] [place] [address] Neutro Auto 64.2 % Normal 36.0-75.0 [facility] Comment on above: Performed By: #### 2 493616 ####[address] [place] [address] Platelet 238.0 E9/L Normal 150.0-500.0 [facility] Comment on above: Performed By: #### 2 890561 ####[address] [place] [address] Platelet mean volume (Bld) [Entitic vol] 7.0 fL Normal 6.4-10.8 [facility] Comment on above: Performed By: #### 2 602377 ####[address] [place] [address] RBC 5.2 E12/L Normal 4.3-5.9 [facility] Comment on above: Performed By: #### 2 983570 ####[facility] Npmqmyziwt065 [facility] [place] [address] WBC 6.6 E9/L Normal 4.0-11.0 [facility] Comment on above: Performed By: #### 2 514243 ####[address] [place] [address] Capillary Glucose POCon 08-22 Glucose [Mass/Vol] 230 mg/dL High 55-99 [facility] Comment on above: Performed By: #### 2 [id number] ####[facility] [address]qsv[address]uli[address]47 [facility] [place] [address] Glucose [Mass/Vol] 187 mg/dL High 55-99 [facility] Comment on above: Result Comment: Thelma maxwell RN/ Performed By: #### 2 [id number] ####[facility] [address]fm[address]waov[address] [place] [address] Glucose [Mass/Vol] 281 mg/dL High 55- [facility] Comment on above: Result Comment: Thelma maxwell RN/ Performed By: #### 2 [id number] ####[facility] Qcsjrayvgx056 [facility] [place] [address] Glucose [Mass/Vol] 298 mg/dL High 55- [facility] Comment on above: Result Comment: Thelma BAE Performed By: #### 2 [id number] ####[facility] Zbnrrtz[address]733 [facility] [place] [address] Glucose [Mass/Vol] 167 mg/dL High - [facility] Comment on above: Result Comment: Thelma BAE Performed By: #### 2 [id number] ####[facility] [address] [place] [address] Interdisciplinary Note - Yimi e Manageron 09-15-2023 Interdisciplinary Note - E M Assembler Normal [facility] Comment on above: Result Comment: Elec tronically Signed By: Sasha Garcia.br\Date and Time Signed: 09/15/23 15:52 EST Magnesiumon 09-15-2023 Magnesium [Mass/Vol] 1.7 mg/dL Normal 1.3-2.4 [facility] Comment on above: Performed By: #### 2 788132, 1379580, 44186444 ####[facility] [address]ql[address] [place] [address] Progress Note-Physicianon Progress Note-Physician Normal [facility] Comment on above: Result Comment: Elec tronically Signed By: Ida LYMAN, Pippa Mabry\.br\Date and Time Signed: 09/15/23 16:08 EST Progress Note-Physician Normal [facility] Comment on above: Result Comment: Elec tronically Signed By: Jose LYMAN, Kayla\.br\Date and Time Signed: 09/15/23 10:03 EST eGFRon 09-15-2023 eGFR 44 mL/min/1.73 m2 Low >=59 [facility] Comment on above: Order Comment: Order added by Discern Expert. Performed By: #### 2 133076, 8426164, 14190802 ####[facility] [address] [place] [address] BMPon 09-14-2023 Anion gap [Moles/Vol] 13 mmol/L Normal 6-16 [facility] Comment on above: Performed By: #### 2 346216, [id number] ####[facility] [address]klesmgy[address] [place] [address] BUN/Creat Ratio 24 No Units High 10-20 [facility] Comment on above: Performed By: #### 2 232296, [id number] ####[facility] Xtokfw[address]wq[address]86 [place] [address] Calcium [Mass/Vol] 8.6 mg/dL Low 8.9-11.1 [facility] Comment on above: Performed By: #### 2 527965, 50009801 ####[facility] [address] [place] [address] Chloride [Moles/Vol] 94 mmol/L Low 101-111 [facility] Comment on above: Performed By: #### 2 124082, 46502411 ####[facility] [address]mac[address] [place] [address] CO2 [Moles/Vol] 33 mmol/L High 21-31 [facility] Comment on above: Performed By: #### 2 062084, 09562934 ####[facility] [address]rfqgrz[address] [place] [address] Creatinine [Mass/Vol] 1.9 mg/dL High 0.5-1.3 [facility] Comment on above: Performed By: #### 2 523624, 23992139 ####[facility] Ddxryimmfc796 [facility] [place] [address] Glucose [Mass/Vol] 215 mg/dL High 55-199 [facility] Comment on above: Performed By: #### 2 429122, 48175893 ####[facility] [address]ow[address] [place] [address] Potassium [Moles/Vol] 4.3 mmol/L Normal 3.5-5.3 [facility] Comment on above: Performed By: #### 2 761127, 22834638 ####[facility] [address] [place] [address] Sodium [Moles/Vol] 136 mmol/L Normal 135-145 [facility] Comment on above: Performed By: #### 2 499614, 92882096 ####[facility] [address] [place] [address] Urea nitrogen [Mass/Vol] 46 mg/dL High 5-21 [facility] Comment on above: Performed By: #### 2 144673, 00284890 ####[facility] [address]ot[address]lora[address] [place] [address] Anion gap [Moles/Vol] 9 mmol/L Normal 6-16 [facility] Comment on above: Performed By: #### 1 9023232, 4106119 ####[facility] [address] [place] [address] BUN/Creat Ratio 26 No Units High 10-20 [facility] Comment on above: Performed By: #### 1 5825736, 3624169 ####[facility] Nvqbjmadkt439 [facility] [place] [address] Calcium [Mass/Vol] 8.7 mg/dL Low 8.9-11.1 [facility] Comment on above: Performed By: #### 1 7684689, 1654297 ####[facility] [address] [place] [address] Chloride [Moles/Vol] 96 mmol/L Low 101-111 [facility] Comment on above: Performed By: #### 1 4707517, 6806666 ####[facility] [address] [place] [address] CO2 [Moles/Vol] 35 mmol/L High 21-31 [facility] Comment on above: Performed By: #### 1 0488557, 2229316 ####[facility] [address] [place] [address] Creatinine [Mass/Vol] 1.8 mg/dL High 0.5-1.3 [facility] Comment on above: Performed By: #### 1 0173092, 2534888 ####[facility] [address] [place] [address] Glucose [Mass/Vol] 226 mg/dL High 55-199 [facility] Comment on above: Performed By: #### 1 9460727, 2721883 ####[facility] [address] [place] [address] Potassium [Moles/Vol] 4.4 mmol/L Normal 3.5-5.3 [facility] Comment on above: Performed By: #### 1 9140768, 1771049 ####[facility] [address] [place] [address] Sodium [Moles/Vol] 136 mmol/L Normal 135-145 [facility] Comment on above: Performed By: #### 1 2059518, 7501493 ####[facility] [address] [place] [address] Urea nitrogen [Mass/Vol] 46 mg/dL High 5-21 [facility] Comment on above: Performed By: #### 1 2516131, 1785364 ####[facility] [address] [place] [address] Anion gap [Moles/Vol] 8 mmol/L Normal 6-16 [facility] Comment on above: Performed By: #### 2 314442, 2599955, 5050471, 50760397 ####[facility] [address] [place] [address] BUN/Creat Ratio 25 No Units High 10-20 [facility] Comment on above: Performed By: #### 2 000418, 2710257, 5819944, 45773598 ####[facility] [address] [place] [address] Calcium [Mass/Vol] 8.3 mg/dL Low 8.9-11.1 [facility] Comment on above: Performed By: #### 2 962508, 6046794, 9569759, 88664572 ####[facility] [address] [place] [address] Chloride [Moles/Vol] 97 mmol/L Low 101-111 [facility] Comment on above: Performed By: #### 2 892261, 4846405, 2039758, 41553949 ####[facility] [address]cc[address] [place] [place] [address] CO2 [Moles/Vol] 36 mmol/L High 21-31 [facility] Comment on above: Performed By: #### 2 375024, 6476758, 7748359, 40874401 ####[facility] [address] [place] [address] Creatinine [Mass/Vol] 1.9 mg/dL High 0.5-1.3 [facility] Comment on above: Performed By: #### 2 234159, 0270178, 9641855, 78636280 ####[facility] [address] [place] [address] Glucose [Mass/Vol] 172 mg/dL Normal 55-199 [facility] Comment on above: Performed By: #### 2 803131, 1941865, 2808524, 21657882 ####[facility] [address] [place] [address] Potassium [Moles/Vol] 4.5 mmol/L Normal 3.5-5.3 [facility] Comment on above: Performed By: #### 2 051004, 1215197, 2794962, 98842579 ####[facility] [address]zl[address] [place] [address] Sodium [Moles/Vol] 136 mmol/L Normal 135-145 [facility] Comment on above: Performed By: #### 2 465213, 8850481, 5700834, 58495336 ####[facility] [address] [place] [address] Urea nitrogen [Mass/Vol] 47 mg/dL High 5-21 [facility] Comment on above: Performed By: #### 2 360403, 6000304, 6765744, 78268418 ####[facility] [address] [place] [address] Anion gap [Moles/Vol] 10 mmol/L Normal 6-16 [facility] Comment on above: Performed By: #### 1 8732362, 5571699 ####[address] [address] BUN/Creat Ratio 25 No Units High 10-20 [facility] Comment on above: Performed By: #### 1 2798932, 9766876 ####[facility] [address] [place] [address] Calcium [Mass/Vol] 8.3 mg/dL Low 8.9-11.1 [facility] Comment on above: Performed By: #### 1 0036020, 7494779 ####[facility] [address] [place] [address] Chloride [Moles/Vol] 96 mmol/L Low 101-111 [facility] Comment on above: Performed By: #### 1 2797324, 6110976 ####[facility] [address]z924 [place] [address] CO2 [Moles/Vol] 35 mmol/L High 21-31 [facility] Comment on above: Performed By: #### 1 7620824, 2005823 ####[facility] [address] [place] [address] Creatinine [Mass/Vol] 1.9 mg/dL High 0.5-1.3 [facility] Comment on above: Performed By: #### 1 2027167, 7635642 ####[facility] [address] [place] [address] Glucose [Mass/Vol] 284 mg/dL High 55-199 [facility] Comment on above: Performed By: #### 1 4808289, 8148527 ####[address] [address] Potassium [Moles/Vol] 4.6 mmol/L Normal 3.5-5.3 [facility] Comment on above: Performed By: #### 1 7094847, 5862207 ####[address] [address] Sodium [Moles/Vol] 136 mmol/L Normal 135-145 [facility] Comment on above: Performed By: #### 1 0336549, 0185343 ####[address] [address] Urea nitrogen [Mass/Vol] 48 mg/dL High 5-21 [facility] Comment on above: Performed By: #### 1 5300811, 3429209 ####[address] [address] CBC w/ Auto Diffon 4 Basophil Absolute 0.1 E9/L Normal 0.0-0.2 [facility] Comment on above: Performed By: #### 2 776997, 8821584, 0851232, 69522490 ####[address] [place] [address] Basophils/100 WBC (Bld) 1.0 % Normal 0.0-2.0 [facility] Comment on above: Performed By: #### 2 421750, 1022901, 8875030, 33109804 ####[address] [address] Eos Absolute 0.2 E9/L Normal 0.0-0.5 [facility] Comment on above: Performed By: #### 2 573442, 4191435, 6264315, 46348662 ####[address] [address] Eosinophils/100 WBC (Bld) 3.1 % Normal 0.0-8.0 [facility] Comment on above: Performed By: #### 2 428357, 1098483, 1653189, 87338378 ####[address] [address] Erythrocyte distribution width (RBC) [Ratio] 18.1 % High 10.9-14.2 [facility] Comment on above: Performed By: #### 2 547879, 5886959, 8845077, 06883717 ####[address] [address] Hematocrit (Bld) [Volume fraction] 42.0 % Normal 37.7-49.0 [facility] Comment on above: Performed By: #### 2 368481, 4524235, 1825550, 29810337 ####[address] [address] Hemoglobin (Bld) [Mass/Vol] 13.3 g/dL Low 13.5-17.5 [facility] Comment on above: Performed By: #### 2 025041, 4580929, 0341972, 02537575 ####[address] [address] Lymph Absolute 1.9 E9/L Normal 1.0-4.0 [facility] Comment on above: Performed By: #### 2 897513, 5437246, 8441788, 55341779 ####[address] [address] Lymphocytes/100 WBC (Bld) 23.5 % Normal 14.0-50.0 [facility] Comment on above: Performed By: #### 2 899020, 2709621, 9242894, 37333085 ####[address] [address] MCH (RBC) [Entitic mass] 27.8 pg Normal 27.0-34.0 [facility] Comment on above: Performed By: #### 2 831575, 7496701, 1004107, 87326509 ####[address] [address] MCHC (RBC) [Mass/Vol] 31.7 g/dL Normal 31.4-36.0 [facility] Comment on above: Performed By: #### 2 432473, 5267295, 2973377, 00075508 ####[address] [address] MCV (RBC) [Entitic vol] 87.6 fL Normal 80.0-100.0 [facility] Comment on above: Performed By: #### 2 228773, 7675832, 3019557, 73073882 ####[address] [address] [place] Absolute 0.8 E9/L Normal 0.2-1.0 [facility] Comment on above: Performed By: #### 2 984326, 4324917, 8252002, 50163681 ####[address] [address] Monocytes/100 WBC (Bld) 10.0 % Normal 4.0-14.0 [facility] Comment on above: Performed By: #### 2 230540, 3966781, 9024500, 37892135 ####[address] [address] Neutro Absolute 5.0 E9/L Normal 2.0-7.5 [facility] Comment on above: Performed By: #### 2 918890, 3877828, 3445140, 94641377 ####[address] [address] Neutro Auto 62.4 % Normal 36.0-75.0 [facility] Comment on above: Performed By: #### 2 808608, 7769622, 2066176, 53495220 ####[facility] [address] [place] [address] Platelet 217.0 E9/L Normal 150.0-500.0 [facility] Comment on above: Performed By: #### 2 512668, 1167483, 9946988, 93854524 ####[address] [address] Platelet mean volume (Bld) [Entitic vol] 6.8 fL Normal 6.4-10.8 [facility] Comment on above: Performed By: #### 2 473612, 5225296, 5083815, 19614532 ####[address] [address] RBC 4.8 E12/L Normal 4.3-5.9 [facility] Comment on above: Performed By: #### 2 103720, 9393454, 4739933, 85368467 ####[address] [address] WBC 7.9 E9/L Normal 4.0-11.0 [facility] Comment on above: Performed By: #### 2 964643, 0516752, 5925993, 66656941 ####[address] [address] [address] Abdomen/Pelvis w/o Contra ston 09-14-2023 CT Abdomen/Pelvis w/o Contrast Normal [facility] Capillary Glucose POCon 08-22 Glucose [Mass/Vol] 294 mg/dL High 55-99 [facility] Comment on above: Result Comment: Thelma BAE Performed By: #### 2 66797180 ####[address] [place] [address] Glucose [Mass/Vol] 244 mg/dL High 55-99 [facility] Comment on above: Result Comment: Thelma BAE Performed By: #### 2 49876611 ####[address] [place] [address] Glucose [Mass/Vol] 284 mg/dL High 55-99 [facility] Comment on above: Result Comment: Thelma maxwell RN/ Performed By: #### 2 90954600 ####[facility] [address] [place] [address] Glucose [Mass/Vol] 164 mg/dL High 55-99 [facility] Comment on above: Result Comment: Thelma maxwell RN/ Performed By: #### 2 78586495 ####[facility] [address] [place] [address] Interdisciplinary Note - Yimi e Manageron 09-14-2023 Interdisciplinary Note - E M Assembler [facility] Comment on above: Result Comment: Elec tronically Signed By: Jodee Giang\.br\Date and Time Signed: 09/14/23 10:25 EST Interdisciplinary Note - Oscar n 09-14-2023 Interdisciplinary Note - OT OT [facility] six clicks score = SNF. Patient requires assist w/ all transfers and adls when compared to baseline. Pt does live home alone. Inpatient OT services to follow daily to progress as tolerates w/ functional skills. Normal [facility] Magnesiumon 09-14-2023 Magnesium [Mass/Vol] 1.8 mg/dL Normal 1.3-2.4 [facility] Comment on above: Performed By: #### 2 832929, 8199088, 1517057, 40038474 ####[facility] [address] [place] [address] Message from Medicareon 08-22 Message from Medicare [id number]# 1.00TIFF Normal [facility] Monitor Recordon 09-14-2023 Monitor Record [id number]# 1.00TIFF Normal [facility] Monitor Record [id number]# 1.00TIFF Normal [facility] Progress Note-Physicianon Progress Note-Physician Normal [facility] Comment on above: Result Comment: Elec tronically Signed By: Sasha Stevens NP\.br\Date and Time Signed: 09/14/23 15:54 EST\.br\Electronically Co-Signed By: Flakita Morgan MD\.br\Date and Time Co-Signed: 09/14/23 20:02 EST Progress Note-Physician Normal [facility] Comment on above: Result Comment: Elec tronically Signed By: Shaquille Calvert Jr., PA-C\.br\Date and Time Signed: 09/14/23 19:56 EST Progress Note-Physician Normal [facility] Comment on above: Result Comment: Elec tronically Signed By: Rowdy LYMAN, Unruly Laurent\.br\Date and Time Signed: 09/14/23 19:53 EST Progress Note-Physician Normal [facility] Comment on above: Result Comment: Elec tronically Signed By: Kayla Garcia MD\.br\Date and Time Signed: 09/14/23 12:47 EST eGFRon 09-14-2023 eGFR 39 mL/min/1.73 m2 Low >=59 [facility] Comment on above: Order Comment: Order added by Discern Expert. Performed By: #### 2 301002, 35479881 ####[facility] [address] [place] [address] eGFR 41 mL/min/1.73 m2 Low >=59 [facility] Comment on above: Order Comment: Order added by Discern Expert. Performed By: #### 1 4420127, 3728373 ####[facility] [address] [place] [address] eGFR 39 mL/min/1.73 m2 Low >=59 [facility] Comment on above: Order Comment: Order added by Discern Expert. Performed By: #### 2 046553, 6512645, 6799299, 33526696 ####[facility] [address] [place] [address] eGFR 39 mL/min/1.73 m2 Low >=59 [facility] Comment on above: Order Comment: Order added by Discern Expert. Performed By: #### 1 5673404, 0081990 ####[facility] [address] [place] [address] BMPon 09-13-2023 Anion gap [Moles/Vol] 9 mmol/L Normal 6-16 [facility] Comment on above: Performed By: #### 2 953318, 59082411 ####[facility] [address] [place] [address] BUN/Creat Ratio 26 No Units High 10-20 [facility] Comment on above: Performed By: #### 2 217266, 76552984 ####[facility] [address] [place] [address] Calcium [Mass/Vol] 8.5 mg/dL Low 8.9-11.1 [facility] Comment on above: Performed By: #### 2 930967, 98909299 ####[facility] [address] [place] [address] Chloride [Moles/Vol] 96 mmol/L Low 101-111 [facility] Comment on above: Performed By: #### 2 040706, 09408455 ####[facility] [address] [place] [address] CO2 [Moles/Vol] 34 mmol/L High 21-31 [facility] Comment on above: Performed By: #### 2 125409, 64068355 ####[facility] [address] [facility] [place] [place] [address] Creatinine [Mass/Vol] 2.0 mg/dL High 0.5-1.3 [facility] Comment on above: Performed By: #### 2 914852, 61489665 ####[facility] [address] [place] [address] Glucose [Mass/Vol] 340 mg/dL High 55-199 [facility] Comment on above: Performed By: #### 2 235342, 78151586 ####[facility] [address] [place] [address] Potassium [Moles/Vol] 5.0 mmol/L Normal 3.5-5.3 [facility] Comment on above: Performed By: #### 2 170551, 47280951 ####[facility] [address] [place] [address] Sodium [Moles/Vol] 134 mmol/L Low 135-145 [facility] Comment on above: Performed By: #### 2 192032, 90513771 ####[facility] [address] [place] [address] Urea nitrogen [Mass/Vol] 51 mg/dL High 5-21 [facility] Comment on above: Performed By: #### 2 583861, 33643990 ####[facility] [address] [place] [address] Anion gap [Moles/Vol] 10 mmol/L Normal 6-16 [facility] Comment on above: Performed By: #### 1 8226211, 7616497 ####[facility] [address] [place] [address] BUN/Creat Ratio 26 No Units High 10-20 [facility] Comment on above: Performed By: #### 1 4331486, 2930262 ####[facility] [address] [place] [address] Calcium [Mass/Vol] 8.6 mg/dL Low 8.9-11.1 [facility] Comment on above: Performed By: #### 1 3051744, 5666530 ####[facility] [address] [place] [address] Chloride [Moles/Vol] 100 mmol/L Low 101-111 [facility] Comment on above: Performed By: #### 1 5674914, 5286853 ####[facility] [address] [place] [address] CO2 [Moles/Vol] 33 mmol/L High 21-31 [facility] Comment on above: Performed By: #### 1 5173041, 5677834 ####[facility] [address] [facility] [place] [address] Creatinine [Mass/Vol] 2.0 mg/dL High 0.5-1.3 [facility] Comment on above: Performed By: #### 1 5353443, 6149146 ####[facility] [address] [facility] [place] [address] Glucose [Mass/Vol] 239 mg/dL High 55-199 [facility] Comment on above: Performed By: #### 1 6170750, 7451569 ####[facility] [address] [place] [address] Potassium [Moles/Vol] 5.0 mmol/L Normal 3.5-5.3 [facility] Comment on above: Performed By: #### 1 1337176, 0603125 ####[facility] [address] [place] [address] Sodium [Moles/Vol] 138 mmol/L Normal 135-145 [facility] Comment on above: Performed By: #### 1 3312430, 2669517 ####[facility] [address] [facility] [place] [address] Urea nitrogen [Mass/Vol] 51 mg/dL High 5-21 [facility] Comment on above: Performed By: #### 1 3192718, 2166600 ####[facility] [address] [facility] [place] [address] Anion gap [Moles/Vol] 10 mmol/L Normal 6-16 [facility] Comment on above: Performed By: #### 1 0262392, 3043615 ####[facility] [address] [facility] [place] [address] BUN/Creat Ratio 26 No Units High 10-20 [facility] Comment on above: Performed By: #### 1 5540774, 5042138 ####[facility] [address] [facility] [place] [address] Calcium [Mass/Vol] 8.7 mg/dL Low 8.9-11.1 [facility] Comment on above: Performed By: #### 1 [id number], [id number] ####[facility] [address] [place] [address] Chloride [Moles/Vol] 101 mmol/L Normal 101-111 [facility] Comment on above: Performed By: #### 1 [id number], 4999596 ####[facility] [address] [place] [address] CO2 [Moles/Vol] 33 mmol/L High 21-31 [facility] Comment on above: Performed By: #### 1 1516674, 6348072 ####[facility] [address] [place] [address] Creatinine [Mass/Vol] 2.0 mg/dL High 0.5-1.3 [facility] Comment on above: Performed By: #### 1 3430343, 5538140 ####[facility] [address] [place] [address] Glucose [Mass/Vol] 149 mg/dL Normal 55-199 [facility] Comment on above: Performed By: #### 1 0141998, [id number] ####[facility] [address] [place] [address] Potassium [Moles/Vol] 4.9 mmol/L Normal 3.5-5.3 [facility] Comment on above: Performed By: #### 1 8888823, 5556412 ####[facility] [address] [place] [address] Sodium [Moles/Vol] 139 mmol/L Normal 135-145 [facility] Comment on above: Performed By: #### 1 0959424, 4913680 ####[facility] [address] [place] [address] Urea nitrogen [Mass/Vol] 51 mg/dL High 5-21 [facility] Comment on above: Performed By: #### 1 7265294, 1878355 ####[facility] [address] [place] [address] Anion gap [Moles/Vol] 11 mmol/L Normal 6-16 [facility] Comment on above: Performed By: #### 2 124498, 51186472 ####[facility] [address] [place] [address] BUN/Creat Ratio 26 No Units High 10-20 [facility] Comment on above: Performed By: #### 2 353715, 56788780 ####[facility] [address] [place] [address] Calcium [Mass/Vol] 8.6 mg/dL Low 8.9-11.1 [facility] Comment on above: Performed By: #### 2 734748, 08843810 ####[facility] [address] [place] [address] Chloride [Moles/Vol] 103 mmol/L Normal 101-111 [facility] Comment on above: Performed By: #### 2 963905, 54681880 ####[facility] [address]mzsh[address] [place] [address] CO2 [Moles/Vol] 31 mmol/L Normal 21-31 [facility] Comment on above: Performed By: #### 2 510251, 81333088 ####[facility] [address] [place] [address] Creatinine [Mass/Vol] 2.1 mg/dL High 0.5-1.3 [facility] Comment on above: Performed By: #### 2 716317, 80852949 ####[facility] [address] [place] [address] Glucose [Mass/Vol] 154 mg/dL Normal 55-199 [facility] Comment on above: Performed By: #### 2 689568, 98930169 ####[facility] [address] [place] [address] Potassium [Moles/Vol] 5.2 mmol/L Normal 3.5-5.3 [facility] Comment on above: Performed By: #### 2 749425, 35043293 ####[facility] [address] [place] [address] Sodium [Moles/Vol] 140 mmol/L Normal 135-145 [facility] Comment on above: Performed By: #### 2 080196, 32384773 ####[facility] [address] [place] [address] Urea nitrogen [Mass/Vol] 54 mg/dL High 5-21 [facility] Comment on above: Performed By: #### 2 376191, 37532048 ####[facility] [address] [place] [address] Anion gap [Moles/Vol] 8 mmol/L Normal 6-16 [facility] Comment on above: Performed By: #### 2 315620, 2827915, 15950057 ####[facility] [address] [place] [address] BUN/Creat Ratio 25 No Units High 10-20 [facility] Comment on above: Performed By: #### 2 029086, 4289412, 84860074 ####[facility] [address] [place] [address] Calcium [Mass/Vol] 8.3 mg/dL Low 8.9-11.1 [facility] Comment on above: Performed By: #### 2 524859, 8923525, 79972262 ####[facility] [address] [place] [address] Chloride [Moles/Vol] 104 mmol/L Normal 101-111 [facility] Comment on above: Performed By: #### 2 744909, 3806398, 44013068 ####[facility] [address] [place] [address] CO2 [Moles/Vol] 33 mmol/L High 21-31 [facility] Comment on above: Performed By: #### 2 188976, 9687222, 38464919 ####[facility] [address] [place] [address] Creatinine [Mass/Vol] 2.2 mg/dL High 0.5-1.3 [facility] Comment on above: Performed By: #### 2 023472, 7212978, 11226829 ####[facility] [address] [place] [address] Glucose [Mass/Vol] 170 mg/dL Normal 55-199 [facility] Comment on above: Performed By: #### 2 728886, 7970298, 88511244 ####[facility] [address] [place] [address] Potassium [Moles/Vol] 5.4 mmol/L High 3.5-5.3 [facility] Comment on above: Performed By: #### 2 720874, 7420215, 04803646 ####[facility] [address] [place] [address] Sodium [Moles/Vol] 140 mmol/L Normal 135-145 [facility] Comment on above: Performed By: #### 2 431781, 3712653, 56840624 ####[facility] [address] [place] [address] Urea nitrogen [Mass/Vol] 55 mg/dL High 5-21 [facility] Comment on above: Performed By: #### 2 202193, 1948672, 68012564 ####[facility] [address] [place] [address] Anion gap [Moles/Vol] 10 mmol/L Normal 6-16 [facility] Comment on above: Performed By: #### 2 597642, 75446434 ####[facility] [address] [place] [address] BUN/Creat Ratio 24 No Units High 10-20 [facility] Comment on above: Performed By: #### 2 977974, 97888878 ####[facility] [address] [place] [address] Calcium [Mass/Vol] 8.6 mg/dL Low 8.9-11.1 [facility] Comment on above: Performed By: #### 2 443753, 88508184 ####[facility] [address] [place] [address] Chloride [Moles/Vol] 105 mmol/L Normal 101-111 [facility] Comment on above: Performed By: #### 2 190957, 02102249 ####[facility] [address] [place] [address] CO2 [Moles/Vol] 30 mmol/L Normal 21-31 [facility] Comment on above: Performed By: #### 2 687940, 91138793 ####[facility] [address] [place] [address] Creatinine [Mass/Vol] 2.3 mg/dL High 0.5-1.3 [facility] Comment on above: Performed By: #### 2 418754, 70303713 ####[facility] [address] [place] [address] Glucose [Mass/Vol] 208 mg/dL High 55-199 [facility] Comment on above: Performed By: #### 2 265260, 37519639 ####[address] [address] Potassium [Moles/Vol] 5.2 mmol/L Normal 3.5-5.3 [facility] Comment on above: Performed By: #### 2 835602, 03294103 ####[address] [address] Sodium [Moles/Vol] 140 mmol/L Normal 135-145 [facility] Comment on above: Performed By: #### 2 550229, 59399829 ####[facility] [address] [place] [address] Urea nitrogen [Mass/Vol] 54 mg/dL High 5-21 [facility] Comment on above: Performed By: #### 2 489596, 28637751 ####[facility] [address] [place] [address] Blood Gas Art, with Lytes, G hugh, [place] 09-13-2023 a/A Ratio Art 37.80 % Normal >=0.80 [facility] Comment on above: Performed By: #### 4 [id number] ####[facility] [address] [facility] [place] [address] AaDO2 Art 150.0 mmHg High 5.0-15.0 [facility] Comment on above: Performed By: #### 4 28775682 ####[facility] [address] [place] [address] ACT. Rate 16 Invalid Interpretation Code [facility] Comment on above: Performed By: #### 4 [id number] ####[address] [place] [address] Allens Test Positive Normal [facility] Comment on above: Performed By: #### 4 [id number] ####[address] [place] [address] Base Excess Arterial 6.3 mmol/L Normal >=2.8 [facility] Comment on above: Performed By: #### 4 38178822 ####[address] [address] BiPAP 20/8 Invalid Interpretation Code [facility] Comment on above: Performed By: #### 4 [id number] ####[address] [address] cCa2+ Art 4.87 mg/dL Normal 4.40-5.30 [facility] Comment on above: Performed By: #### 4 33724765 ####[facility] [address] [place] [address] cCl- Art 102.0 mmol/L Normal 101.0-111.0 [facility] Comment on above: Performed By: #### 4 21782942 ####[facility] [address] [place] [address] cGlu Art 162 mg/dL High 55-99 [facility] Comment on above: Performed By: #### 4 53132853 ####[facility] [address] [place] [address] cK+ Art 5.3 mmol/L Normal 3.5-5.3 [facility] Comment on above: Performed By: #### 4 14220042 ####[facility] [address] [place] [address] cLac Art .7 mmol/L Normal .5-2.2 [facility] Comment on above: Performed By: #### 4 89525670 ####[facility] [address] [place] [address] communications maintainer+ Art 143.0 mmol/L Normal 135.0-145.0 [facility] Comment on above: Performed By: #### 4 98797492 ####[facility] [address] [place] [address] Drawn by tsb Invalid Interpretation Code [facility] Comment on above: Performed By: #### 4 44770338 ####[address] [place] [address] FCOHb Art 1.1 % Low 1.5-4.9 [facility] Comment on above: Result Comment: Refe rence rangeNonsmoker <1.5%Smoker <5.0%Heavy Smoker <9.0% Performed By: #### 4 10378175 ####[facility] [address] [place] [address] FIO2 BG 45.0 Invalid Interpretation Code [facility] Comment on above: Performed By: #### 4 40966049 ####[facility] [address] [place] [address] FMetHb Art 0.5 % Normal 0.0-1.9 [facility] Comment on above: Performed By: #### 4 90119591 ####[facility] [address] [place] [address] FO2Hb Art 95.9 % Normal 93.0-100.0 [facility] Comment on above: Performed By: #### 4 44167612 ####[facility] [address] [place] [address] HCO3 (Bld) [Moles/Vol] 30.1 mmol/L High 22.0-26.0 [facility] Comment on above: Performed By: #### 4 99416700 ####[facility] [address] [place] [address] Hemoglobin (Bld) [Mass/Vol] 14.3 g/dL Normal 12.0-17.0 [facility] Comment on above: Performed By: #### 4 85097882 ####[facility] [address] [place] [address] MECH. Rate 14 Invalid Interpretation Code [facility] Comment on above: Performed By: #### 4 04718878 ####[address] [place] [address] MV 13 Invalid Interpretation Code [facility] Comment on above: Performed By: #### 4 78298799 ####[address] [address] Oxygen saturation in Blood 97.5 % Normal 95.0-100.0 [facility] Comment on above: Performed By: #### 4 98288388 ####[address] [address] P CO2 Arterial 66.6 mmHg High 35.0-45.0 [facility] Comment on above: Performed By: #### 4 73830213 ####[address] [place] [address] P O2 Arterial 91.1 mmHg Normal 80.0-100.0 [facility] Comment on above: Performed By: #### 4 01928039 ####[address] [place] [address] pH Arterial 7.326 Low 7.350-7.450 [facility] Comment on above: Performed By: #### 4 61927710 ####[address] [address] Sample Site R Radial Normal [facility] Comment on above: Performed By: #### 4 03127147 ####[address] [address] Sample Type Arterial Draw Normal [facility] Comment on above: Performed By: #### 4 30190057 ####[address] [address] CBC w/ Auto Diffon 4 Basophil Absolute 0.0 E9/L Normal 0.0-0.2 [facility] Comment on above: Performed By: #### 2 322095, 6265572, 59960402 ####[address] [address] Basophils/100 WBC (Bld) 0.4 % Normal 0.0-2.0 [facility] Comment on above: Performed By: #### 2 685277, 4230356, 16298950 ####[address] [address] Eos Absolute 0.0 E9/L Normal 0.0-0.5 [facility] Comment on above: Performed By: #### 2 557420, 5138523, 37177840 ####[address] [address] Eosinophils/100 WBC (Bld) 0.0 % Normal 0.0-8.0 [facility] Comment on above: Performed By: #### 2 108338, 3853050, 20134391 ####[address] [address] Erythrocyte distribution width (RBC) [Ratio] 17.6 % High 10.9-14.2 [facility] Comment on above: Performed By: #### 2 022077, 5609025, 48892806 ####[address] [address] Hematocrit (Bld) [Volume fraction] 43.0 % Normal 37.7-49.0 [facility] Comment on above: Performed By: #### 2 139767, 1234350, 63391004 ####[address] [address] Hemoglobin (Bld) [Mass/Vol] 13.6 g/dL Normal 13.5-17.5 [facility] Comment on above: Performed By: #### 2 588295, 1335438, 38854136 ####[facility] [address] [place] [address] Lymph Absolute 0.7 E9/L Low 1.0-4.0 [facility] Comment on above: Performed By: #### 2 518150, 1322937, 95104272 ####[address] [address] Lymphocytes/100 WBC (Bld) 10.8 % Low 14.0-50.0 [facility] Comment on above: Performed By: #### 2 887089, 2629167, 13643782 ####[address] [address] MCH (RBC) [Entitic mass] 27.7 pg Normal 27.0-34.0 [facility] Comment on above: Performed By: #### 2 284771, 4479848, 17303909 ####[address] [address] MCHC (RBC) [Mass/Vol] 31.6 g/dL Normal 31.4-36.0 [facility] Comment on above: Performed By: #### 2 362532, 3434661, 36687023 ####[address] [address] MCV (RBC) [Entitic vol] 87.5 fL Normal 80.0-100.0 [facility] Comment on above: Performed By: #### 2 669576, 3811841, 27201902 ####[address] [address] [place] Absolute 0.6 E9/L Normal 0.2-1.0 [facility] Comment on above: Performed By: #### 2 795107, 4273660, 13860975 ####[address] [address] Monocytes/100 WBC (Bld) 9.5 % Normal 4.0-14.0 [facility] Comment on above: Performed By: #### 2 907499, 0668828, 22776790 ####[facility] [address] [place] [address] Neutro Absolute 5.0 E9/L Normal 2.0-7.5 [facility] Comment on above: Performed By: #### 2 101753, 9090196, 72356981 ####[facility] [address] [place] [address] Neutro Auto 79.3 % High 36.0-75.0 [facility] Comment on above: Performed By: #### 2 763201, 5642603, 94542050 ####[facility] [address] [place] [address] Platelet 207.0 E9/L Normal 150.0-500.0 [facility] Comment on above: Performed By: #### 2 016206, 8046529, 48279195 ####[facility] [address] [place] [address] Platelet mean volume (Bld) [Entitic vol] 7.2 fL Normal 6.4-10.8 [facility] Comment on above: Performed By: #### 2 076816, 9989066, 29160087 ####[facility] [address] [place] [address] RBC 4.9 E12/L Normal 4.3-5.9 [facility] Comment on above: Performed By: #### 2 282351, 8584671, 08491441 ####[facility] [address] [place] [address] WBC 6.3 E9/L Normal 4.0-11.0 [facility] Comment on above: Performed By: #### 2 418480, 3115961, 73756532 ####[facility] [address] [place] [address] Capillary Glucose POCon 08-22 Glucose [Mass/Vol] 357 mg/dL High 55-99 [facility] Comment on above: Result Comment: Thelma BAE Performed By: #### 2 13810664 ####[facility] [address] [place] [address] Glucose [Mass/Vol] 235 mg/dL High 55-99 [facility] Comment on above: Result Comment: Thelma BAE Performed By: #### 2 54114346 ####[address] [place] [address] Glucose [Mass/Vol] 153 mg/dL High 55-[address] [place] [address] Comment on above: Result Comment: Thelma BAE Performed By: #### 2 85239656 ####[address] [address] Glucose [Mass/Vol] 137 mg/dL High 55-99 [facility] Comment on above: Result Comment: Thelma BAE Performed By: #### 2 46114248 ####[address] [address] Glucose [Mass/Vol] 157 mg/dL High -[address] [place] [address] Comment on above: Result Comment: Thelma BAE Performed By: #### 2 81633661 ####[address] [address] Glucose [Mass/Vol] 169 mg/dL High -[address] [place] [address] Comment on above: Result Comment: Thelma BAE Performed By: #### 2 85732177 ####[address] [address] Glucose [Mass/Vol] 166 mg/dL High -[address] [place] [address] Comment on above: Result Comment: Thelma BAE Performed By: #### 2 08469394 ####[address] [place] [address] Glucose [Mass/Vol] 170 mg/dL High 55-[address] [place] [address] Comment on above: Result Comment: Thelma BAE Performed By: #### 2 97843378 ####[facility] [address] [place] [address] Glucose [Mass/Vol] 165 mg/dL High 55-99 [facility] Comment on above: Performed By: #### 2 20566276 ####[facility] [address] [place] [address] Glucose [Mass/Vol] 159 mg/dL High 55-99 [facility] Comment on above: Result Comment: Thelma BAE Performed By: #### 2 37811268 ####[facility] [address] [place] [address] Glucose [Mass/Vol] 178 mg/dL High 55-99 [facility] Comment on above: Result Comment: Thelma BAE Performed By: #### 2 89286145 ####[facility] [address] [place] [address] Glucose [Mass/Vol] 143 mg/dL High -99 [facility] Comment on above: Result Comment: Thelma BAE Performed By: #### 2 58150791 ####[facility] [address] [place] [address] Glucose [Mass/Vol] 192 mg/dL High -[address] [place] [address] Comment on above: Result Comment: Thelma BAE Performed By: #### 2 11979025 ####[facility] [address] [place] [address] Glucose [Mass/Vol] 201 mg/dL High 55-99 [facility] Comment on above: Result Comment: Thelma BAE Performed By: #### 2 72545000 ####[facility] [address] [place] [address] Glucose [Mass/Vol] 242 mg/dL High 55-[address] [place] [address] Comment on above: Result Comment: Thelma BAE Performed By: #### 2 30364000 ####[facility] [address] [place] [address] Coding Queryon 09-13-2023 Coding Query Normal [facility] Coding Query Normal [facility] Consultation Noteon 09-13-19 Consultation Note Normal [facility] Comment on above: Result Comment: Elec tronically Signed By: Rowdy LYMAN, Unruly Laurent\.br\Date and Time Signed: 09/13/23 19:06 EST Consultation Note Normal [facility] Comment on above: Result Comment: Elec tronically Signed By: Flakita Morgan MD\.br\Date and Time Signed: 09/13/23 10:18 EST Echo [employer]an[employer] w/ C ontraston 09-13-2023 Echo Transthoracic Lmtd w/ Contrast Normal [facility] TqrR8fqt 09-13-2023 HbA1c (Bld) [Mass fraction] 11.8 % High <=5.9 [facility] Comment on above: Order Comment: Order placed by EKM rule. [id number] Performed By: #### 7 [id number] ####[facility] [address] [place] [address] Insurance Correspondence Off iceon 09-13-2023 Insurance Correspondence Office [phone] [id number] #1.00TIFF [facility] Interdisciplinary Note - Yimi e Manageron 09-13-2023 Interdisciplinary Note - E M Assembler Normal [facility] Comment on above: Result Comment: Elec tronically Signed By: Jodee Giang\.br\Date and Time Signed: 09/13/23 14:06 EST Interdisciplinary Note - PTo n 09-13-2023 Interdisciplinary Note - PT Normal [facility] Monitor Recordon 09-13-2023 Monitor Record [id number]# 1.00TIFF Normal [facility] Monitor Record [id number]# 1.00TIFF Normal [facility] Monitor Record [id number]# 1.00TIFF Normal [facility] Monitor Record [id number]# 1.00TIFF Normal [facility] Monitor Record [id number]# 1.00TIFF Normal [facility] Monitor Record [id number]# 1.00TIFF Normal [facility] Nursing Note - Woundon 09-13 Nursing Note - Wound [id number]# 2.00TIFF Normal [facility] Progress Note-Physicianon Progress Note-Physician Normal [facility] Comment on above: Result Comment: Elec tronically Signed By: Ida LYMAN, Pippa Mabry\.br\Date and Time Signed: 09/13/23 15:56 EST Progress Note-Physician Normal [facility] Comment on above: Result Comment: Elec tronically Signed By: Jose LYMAN, Kayla\.br\Date and Time Signed: 09/13/23 11:23 EST Respiratory Panel by PCRon 0 09-13-2023 Adenovirus DNA ERIBERTO+non-probe Ql (Nph) Not detected Normal [facility] Comment on above: Result Comment: Test ing was performed using nucleic acid amplification including Influenza A, Influenza A H1, Influenza A H3, Influenza B, RSV A, RSV B, Adenovirus, Human Metapneumovirus, Parainfluenza 1,2,3, and 4, Rhinovirus, Bordetella parapertussis/bronchiseptica, Bordetella holmesii, and Bordetella pertussis. Performed By: #### 1 [id number] ####[facility] [address] [place] [address] B. parapertussis DNA ERIBERTO+probe Ql (Upper resp) Not detected Normal Not Detected [facility] Comment on above: Performed By: #### 1 [id number] ####[facility] [address] [place] [address] B. pertussis DNA ERIBERTO+probe Ql (Upper resp) Not detected Normal Not Detected [facility] Comment on above: Performed By: #### 1 [id number] ####[facility] [address] [facility] [place] [address] FLUAV H1 RNA ERIBERTO+non-probe Ql (Nph) Not detected Normal [facility] Comment on above: Performed By: #### 1 [id number] ####[facility] [address] [facility] [place] [address] FLUAV H3 RNA ERIBERTO+non-probe Ql (Nph) Not detected Normal [facility] Comment on above: Performed By: #### 1 [id number] ####[facility] [address] [facility] [place] [address] FLUAV RNA ERIBERTO+non-probe Ql (Nph) Not detected Normal [facility] Comment on above: Performed By: #### 1 [id number] ####[facility] [address] [facility] [place] [address] FLUBV RNA ERIBERTO+non-probe Ql (Nph) Not detected Normal [facility] Comment on above: Performed By: #### 1 [id number] ####[facility] [address] [facility] [place] [address] Human Metapneumovirus Not detected Normal [facility] Comment on above: Result Comment: This test result should be correlated with clinical presentations and medical history by a healthcare provider to determine its clinical significance. Performed By: #### 1 [id number] ####[facility] [address] [facility] [place] [address] Parainfluenza virus 1 RNA ERIBERTO+non-probe Ql (Nph) Not detected Normal [facility] Comment on above: Performed By: #### 1 [id number] ####[facility] Vyyg[address] [facility] [place] [address] Parainfluenza virus 2 RNA ERIBERTO+non-probe Ql (Nph) Not detected Normal [facility] Comment on above: Performed By: #### 1 [id number] ####[facility] Xdbgzsjrpj430 [facility] [place] [address] Parainfluenza virus 3 RNA ERIBERTO+non-probe Ql (Nph) Not detected Normal [facility] Comment on above: Performed By: #### 1 [id number] ####[facility] [address] [place] [address] Parainfluenza virus 4 RNA ERIBERTO+non-probe Ql (Nph) Not detected Normal [facility] Comment on above: Performed By: #### 1 [id number] ####[facility] [address] [place] [address] Resp Panel Intrl QC Pass Normal [facility] Comment on above: Performed By: #### 1 [id number] ####[address] [place] [address] Rhinovirus+Enterovir us RNA ERIBERTO+non-probe Ql (Nph) Not detected Normal [facility] Comment on above: Performed By: #### 1 [id number] ####[address] [address] RSV RNA ERIBERTO+non-probe Ql (Nph) Not detected Normal [facility] Comment on above: Performed By: #### 1 [id number] ####[address] [address] UA With Cult Reflexon 2023 Bilirubin Ql (U) Negative Normal Negative [facility] Comment on above: Performed By: #### 1 [id number] ####[address] [address] Clarity (U) CLEAR Normal Clear [facility] Comment on above: Performed By: #### 1 [id number] ####[facility] [address] [place] [address] Color (U) YELLOW Normal Yellow [facility] Comment on above: Performed By: #### 1 [id number] ####[address] [address] Epithelial cells.squamous LM.HPF (Urine sed) [#/Area] 0-2 Normal 0-2 [facility] Comment on above: Performed By: #### 1 [id number] ####[facility] [address] [place] [address] Glucose Test strip (U) [Mass/Vol] 3+ Abnormal Negative [facility] Comment on above: Performed By: #### 1 [id number] ####[facility] [address] [place] [address] Hemoglobin Ql (U) 1+ Abnormal Negative [facility] Comment on above: Performed By: #### 1 [id number] ####[facility] [address] [place] [address] Ketones (U) [Mass/Vol] Negative Normal Negative [facility] Comment on above: Performed By: #### 1 [id number] ####[facility] [address] [place] [address] Arispe.plasma/Lithi um.RBC (Bld) [Mass ratio] 0-3 Normal 0-3 [facility] Comment on above: Performed By: #### 1 [id number] ####[address] [address] Nitrite Ql (U) Negative Normal Negative [facility] Comment on above: Performed By: #### 1 [id number] ####[address] [address] pH (U) 5.5 [pH] Invalid Interpretation Code 5.0-9.0 [facility] Comment on above: Performed By: #### 1 [id number] ####[facility] [address] [place] [address] Protein (U) [Mass/Vol] TRACE Abnormal Negative [facility] Comment on above: Performed By: #### 1 [id number] ####[address] [address] Specific gravity (U) [Rel density] 1.015 Invalid Interpretation Code 1.005-1.030 [facility] Comment on above: Performed By: #### 1 [id number] ####[address] [address] Type of Urine collection method Clean Catch Normal [facility] Comment on above: Performed By: #### 1 [id number] ####[address] [place] [address] Urobilinogen Qn (U) 0.2 {Itz'U}/dL Normal 0.0-1.0 [facility] Comment on above: Performed By: #### 1 [id number] ####[facility] [address] [place] [address] WBC Auto Ql (U) Negative Normal Negative [facility] Comment on above: Performed By: #### 1 [id number] ####[facility] [address] [place] [address] WBC LM.HPF (Urine sed) [#/Area] 0-5 Normal 0-5 [facility] Comment on above: Performed By: #### 1 [id number] ####[address] [address] US LE Venous Duplex Bilatera aria 09-13-2023 US LE Venous Duplex Bilateral Normal [facility] US Renalon 09-13-2023 US Renal Normal [facility] XR Chest Single Viewon 09-13 XR Chest Single View Normal [facility] eGFRon 09-13-2023 eGFR 36 mL/min/1.73 m2 Low >=59 [facility] Comment on above: Order Comment: Order added by Discern Expert. Performed By: #### 2 857252, [id number] ####[address] [place] [address] eGFR 36 mL/min/1.73 m2 Low >=59 [facility] Comment on above: Order Comment: Order added by Discern Expert. Performed By: #### 1 [id number], 5851815 ####[facility] [address] [place] [address] eGFR 36 mL/min/1.73 m2 Low >=59 [facility] Comment on above: Order Comment: Order added by Discern Expert. Performed By: #### 1 9797742, 8835955 ####[facility] [address] [place] [address] eGFR 34 mL/min/1.73 m2 Low >=59 [facility] Comment on above: Order Comment: Order added by Discern Expert. Performed By: #### 2 944338, [id number] ####[facility] [address] [place] [address] eGFR 32 mL/min/1.73 m2 Low >=59 [facility] Comment on above: Order Comment: Order added by Discern Expert. Performed By: #### 2 193438, 6332593, [id number] ####[facility] [address] [place] [address] eGFR 31 mL/min/1.73 m2 Low >=59 [facility] Comment on above: Order Comment: Order added by Discern Expert. Performed By: #### 2 885647, [id number] ####[facility] [address] [place] [address] BMPon 09-12-2023 Anion gap [Moles/Vol] 12 mmol/L Normal 6-16 [facility] Comment on above: Performed By: #### 1 9048513, [id number] ####[facility] [address] [place] [address] BUN/Creat Ratio 23 No Units High 10-20 [facility] Comment on above: Performed By: #### 1 5331313, 4182365 ####[facility] [address] [place] [address] Calcium [Mass/Vol] 8.4 mg/dL Low 8.9-11.1 [facility] Comment on above: Performed By: #### 1 9175014, 9051192 ####[facility] [address] [place] [address] Chloride [Moles/Vol] 102 mmol/L Normal 101-111 [facility] Comment on above: Performed By: #### 1 4914569, 9011584 ####[facility] [address] [place] [address] CO2 [Moles/Vol] 30 mmol/L Normal 21-31 [facility] Comment on above: Performed By: #### 1 2473396, 4666361 ####[facility] [address] [place] [address] Creatinine [Mass/Vol] 2.5 mg/dL High 0.5-1.3 [facility] Comment on above: Performed By: #### 1 9379343, 9524879 ####[facility] [address] [place] [address] Glucose [Mass/Vol] 463 mg/dL Abnormal 55-199 [facility] Comment on above: Result Comment: Crit ical Result Verified by Previous ResultCritical Result S_[id number] Called to and read back by: MARLEN SHEETS at: 09/12/2023 22:01:54 by:PRADEEP KERR Performed By: #### 1 9244962, [id number] ####[facility] [address] [place] [address] Potassium [Moles/Vol] 5.6 mmol/L High 3.5-5.3 [facility] Comment on above: Performed By: #### 1 2782535, 9596420 ####[facility] [address] [facility] [place] [address] Sodium [Moles/Vol] 138 mmol/L Normal 135-145 [facility] Comment on above: Performed By: #### 1 9496318, 6598116 ####[facility] [address] [place] [address] Urea nitrogen [Mass/Vol] 57 mg/dL High 5-21 [facility] Comment on above: Performed By: #### 1 5158305, 5463549 ####[facility] [address] [place] [address] Anion gap [Moles/Vol] 12 mmol/L Normal 6-16 [facility] Comment on above: Performed By: #### 2 880081, 45155855, 9518504 ####[facility] [address] [place] [address] BUN/Creat Ratio 22 No Units High 10-20 [facility] Comment on above: Performed By: #### 2 844791, 23733860, 2538088 ####[facility] [address] [place] [address] Calcium [Mass/Vol] 8.4 mg/dL Low 8.9-11.1 [facility] Comment on above: Performed By: #### 2 585031, 90393556, 7281609 ####[facility] [address] [place] [address] Chloride [Moles/Vol] 100 mmol/L Low 101-111 [facility] Comment on above: Performed By: #### 2 285171, 96567361, 7748822 ####[facility] [address] [place] [address] CO2 [Moles/Vol] 28 mmol/L Normal 21-31 [facility] Comment on above: Performed By: #### 2 774916, 10401997, 2083829 ####[facility] [address] [place] [address] Creatinine [Mass/Vol] 2.6 mg/dL High 0.5-1.3 [facility] Comment on above: Performed By: #### 2 315562, 49506212, 6615667 ####[facility] [address] [place] [address] Glucose [Mass/Vol] 575 mg/dL Abnormal 55-199 [facility] Comment on above: Result Comment: Crit ical Result S_[id number] Called to and read back by: MARLEN SHEETS at: 09/12/2023 18:59:19 by:PRADEEP Barksdale Result Verified by Previous Result Performed By: #### 2 423592, [id number], 0252903 ####[facility] [address] [place] [address] Potassium [Moles/Vol] 6.5 mmol/L Abnormal 3.5-5.3 [facility] Comment on above: Result Comment: Crit ical Result S_K:6.5 Called to and read back by: MARLEN SHEETS at: 09/12/2023 18:59:19 by:PRADEEP [place]ksdale Result Verified by Previous Result Performed By: #### 2 727501, 90114058, 5424066 ####[facility] [address] [place] [address] Sodium [Moles/Vol] 133 mmol/L Low 135-145 [facility] Comment on above: Performed By: #### 2 746468, 86145036, 8381160 ####[facility] [address] [place] [address] Urea nitrogen [Mass/Vol] 57 mg/dL High 5-21 [facility] Comment on above: Performed By: #### 2 084663, 93420578, 0880483 ####[address] [place] [address] BNPon 09-12-2023 Natriuretic peptide B (Bld) [Mass/Vol] 245 pg/mL High 5-80 [facility] Comment on above: Performed By: #### 1 0785438, 738415436, 0132613, [id number], 33671442, 3251970, 3019615, 33833538, 1818284, 5716474 ####[facility] [address] [place] [address] BOHBon 09-12-2023 Beta HB Qnt 0.17 mmol/L Normal 0.02-0.27 [facility] Comment on above: Performed By: #### 1 7845477, 466306766, 9186284, 2595233844, 13558475, 2032702, 3422037, 74127176, 0314006, 1395939 ####[facility] [address] [place] [address] Blood Gas Art, with Lytes, G hugh, [place] 09-12-2023 a/A Ratio Art 26.80 % Normal >=0.80 [facility] Comment on above: Performed By: #### 4 [id number] ####[facility] [address] [place] [address] AaDO2 Art 281.8 mmHg High 5.0-15.0 [facility] Comment on above: Performed By: #### 4 74859212 ####[facility] [address] [facility] [place] [address] Allens Test Positive Normal [facility] Comment on above: Performed By: #### 4 [id number] ####[facility] [address] [facility] [place] [address] Base Excess Arterial 2.9 mmol/L Normal >=2.8 [facility] Comment on above: Performed By: #### 4 96091269 ####[facility] [address] [facility] [place] [address] BiPAP 09/04 Invalid Interpretation Code [facility] Comment on above: Performed By: #### 4 [id number] ####[facility] [address] [facility] [place] [address] cCa2+ Art 4.64 mg/dL Normal 4.40-5.30 [facility] Comment on above: Performed By: #### 4 51627337 ####[facility] [address] [facility] [place] [address] cGlu Art 531 mg/dL Abnormal 55-99 [facility] Comment on above: Result Comment: Resu lts Called To DR GARCIA By DIANA MCKEON And Read Back For Confirmation On 09/12/2023 18:44:48 EST. Performed By: #### 4 [id number] ####[facility] [address] [facility] [place] [address] cK+ Art 5.9 mmol/L High 3.5-5.3 [facility] Comment on above: Performed By: #### 4 [id number] ####[facility] B[address] [facility] [place] [address] cLac Art .6 mmol/L Normal .5-2.2 [facility] Comment on above: Performed By: #### 4 88434765 ####[facility] [address] [facility] [place] [address] communications maintainer+ Art 138.0 mmol/L Normal 135.0-145.0 [facility] Comment on above: Performed By: #### 4 [id number] ####[facility] [address] [place] [address] Drawn by [employer] Invalid Interpretation Code [facility] Comment on above: Performed By: #### 4 [id number] ####[address] [place] [address] FCOHb Art 1.4 % Low 1.5-4.9 [facility] Comment on above: Result Comment: Refe rence rangeNonsmoker <1.5%Smoker <5.0%Heavy Smoker <9.0% Performed By: #### 4 [id number] ####[address] [address] FIO2 BG 65.0 Invalid Interpretation Code [facility] Comment on above: Performed By: #### 4 [id number] ####[address] [address] FMetHb Art 0.6 % Normal 0.0-1.9 [facility] Comment on above: Performed By: #### 4 44674129 ####[address] [address] FO2Hb Art 95.9 % Normal 93.0-100.0 [facility] Comment on above: Performed By: #### 4 78737866 ####[address] [address] HCO3 (Bld) [Moles/Vol] 27.0 mmol/L High 22.0-26.0 [facility] Comment on above: Performed By: #### 4 [id number] ####[address] [place] [address] Hemoglobin (Bld) [Mass/Vol] 14.9 g/dL Normal 12.0-17.0 [facility] Comment on above: Performed By: #### 4 [id number] ####[address] [place] [address] Oxygen saturation in Blood 97.9 % Normal 95.0-100.0 [facility] Comment on above: Performed By: #### 4 39352506 ####[address] [address] P CO2 Arterial 65.5 mmHg High 35.0-45.0 [facility] Comment on above: Performed By: #### 4 63086102 ####[address] [address] P O2 Arterial 103.0 mmHg High 80.0-100.0 [facility] Comment on above: Performed By: #### 4 36421485 ####[address] [address] pH Arterial 7.292 Low 7.350-7.450 [facility] Comment on above: Performed By: #### 4 24746980 ####[address] [address] Sample Site L Radial Normal [facility] Comment on above: Performed By: #### 4 [id number] ####[address] [address] Sample Type Arterial Draw Normal [facility] Comment on above: Performed By: #### 4 [id number] ####[address] [address] a/A Ratio Art 29.90 % Normal >=0.80 [facility] Comment on above: Performed By: #### 4 [id number] ####[address] [address] AaDO2 Art 192.2 mmHg High 5.0-15.0 [facility] Comment on above: Performed By: #### 4 97719838 ####[address] [address] Allens Test Positive Normal [facility] Comment on above: Performed By: #### 4 85936731 ####[address] [address] Base Excess Arterial -0.1 mmol/L Low >=2.8 [facility] Comment on above: Performed By: #### 4 [id number] ####[facility] [address] [place] [address] BiPAP 05/04 Invalid Interpretation Code [facility] Comment on above: Performed By: #### 4 [id number] ####[facility] [address] [place] [address] cCa2+ Art 4.76 mg/dL Normal 4.40-5.30 [facility] Comment on above: Performed By: #### 4 [id number] ####[address] [address] cCl- Art 100.0 mmol/L Low 101.0-111.0 [facility] Comment on above: Performed By: #### 4 56292892 ####[address] [address] cGlu Art 555 mg/dL Abnormal 55-99 [facility] Comment on above: Result Comment: Resu lts Called To [place] PE[facility] By WILLEM WILKES _ And Read Back For Confirmation On _.09/12/2023 16:45:25 EST Performed By: #### 4 [id number] ####[facility] [address] [place] [address] cK+ Art 6.3 mmol/L Abnormal 3.5-5.3 [facility] Comment on above: Result Comment: Resu lts Called To [place] PECL By WILLEM WILKES _ And Read Back For Confirmation On _.09/12/2023 16:45:25 EST Performed By: #### 4 [id number] ####[facility] [address] [place] [address] cLac Art .7 mmol/L Normal .5-2.2 [facility] Comment on above: Performed By: #### 4 52027310 ####[address] [place] [address] communications maintainer+ Art 135.0 mmol/L Normal 135.0-145.0 [facility] Comment on above: Performed By: #### 4 95845641 ####[facility] [address] [place] [address] Drawn by WILLEM WILKES Invalid Interpretation Code [facility] Comment on above: Performed By: #### 4 13195795 ####[address] [place] [address] FCOHb Art 2.1 % Normal 1.5-4.9 [facility] Comment on above: Result Comment: Refe rence rangeNonsmoker <1.5%Smoker <5.0%Heavy Smoker <9.0% Performed By: #### 4 [id number] ####[address] [address] FIO2 BG 50 Invalid Interpretation Code [facility] Comment on above: Performed By: #### 4 [id number] ####[address] [address] FMetHb Art 0.1 % Normal 0.0-1.9 [facility] Comment on above: Performed By: #### 4 23118413 ####[address] [address] FO2Hb Art 93.3 % Normal 93.0-100.0 [facility] Comment on above: Performed By: #### 4 18802435 ####[address] [place] [address] HCO3 (Bld) [Moles/Vol] 24.3 mmol/L Normal 22.0-26.0 [facility] Comment on above: Performed By: #### 4 02554579 ####[address] [place] [address] Hemoglobin (Bld) [Mass/Vol] 14.8 g/dL Normal 12.0-17.0 [facility] Comment on above: Performed By: #### 4 18120311 ####[address] [place] [address] Oxygen saturation in Blood 95.4 % Normal 95.0-100.0 [facility] Comment on above: Performed By: #### 4 [id number] ####[facility] [address] [place] [address] P CO2 Arterial 69.6 mmHg High 35.0-45.0 [facility] Comment on above: Performed By: #### 4 77416423 ####[facility] [address] [place] [address] P O2 Arterial 81.9 mmHg Normal 80.0-100.0 [facility] Comment on above: Performed By: #### 4 [id number] ####[address] [place] [address] pH Arterial 7.235 Abnormal 7.350-7.450 [facility] Comment on above: Result Comment: Resu lts Called To [place] PECL By WILLEM WILKES _ And Read Back For Confirmation On _.09/12/2023 16:45:25 EST Performed By: #### 4 [id number] ####[address] [place] [address] Sample Site L Radial Normal [facility] Comment on above: Performed By: #### 4 [id number] ####[facility] [address] [place] [address] Sample Type Arterial Draw Normal [facility] Comment on above: Performed By: #### 4 [id number] ####[facility] [address] [place] [address] a/A Ratio Art 17.40 % Normal >=0.80 [facility] Comment on above: Performed By: #### 4 77398732 ####[facility] [address] [place] [address] AaDO2 Art 406.5 mmHg High 5.0-15.0 [facility] Comment on above: Performed By: #### 4 [id number] ####[address] [place] [address] Allens Test Positive Normal [facility] Comment on above: Performed By: #### 4 87702467 ####[facility] [address] [place] [address] Base Excess Arterial -0.1 mmol/L Low >=2.8 [facility] Comment on above: Performed By: #### 4 [id number] ####[facility] [address] [place] [address] cCa2+ Art 4.75 mg/dL Normal 4.40-5.30 [facility] Comment on above: Performed By: #### 4 [id number] ####[facility] [address] [place] [address] cCl- Art 98.0 mmol/L Low 101.0-111.0 [facility] Comment on above: Performed By: #### 4 53953503 ####[address] [place] [address] cGlu Art 579 mg/dL Abnormal 55-99 [facility] Comment on above: Result Comment: Resu lts Called To nicole myers By korina hebert And Read Back For Confirmation On 09/12/2023 14:09:29 EST. Performed By: #### 4 [id number] ####[facility] [address] [place] [address] cK+ Art 6.0 mmol/L High 3.5-5.3 [facility] Comment on above: Performed By: #### 4 [id number] ####[facility] [address] [place] [address] cLac Art .9 mmol/L Normal .5-2.2 [facility] Comment on above: Performed By: #### 4 [id number] ####[address] [place] [address] communications maintainer+ Art 134.0 mmol/L Low 135.0-145.0 [facility] Comment on above: Performed By: #### 4 06802992 ####[facility] [address] [place] [address] Device Non Rebreather Mask Normal [facility] Comment on above: Performed By: #### 4 [id number] ####[facility] [address] [place] [address] Drawn by korina clement Invalid Interpretation Code [facility] Comment on above: Performed By: #### 4 [id number] ####[address] [place] [address] FCOHb Art 2.2 % Normal 1.5-4.9 [facility] Comment on above: Result Comment: Refe rence rangeNonsmoker <1.5%Smoker <5.0%Heavy Smoker <9.0% Performed By: #### 4 [id number] ####[address] [address] FIO2 BG 80 Invalid Interpretation Code [facility] Comment on above: Performed By: #### 4 [id number] ####[address] [address] FO2Hb Art 94.1 % Normal 93.0-100.0 [facility] Comment on above: Performed By: #### 4 [id number] ####[address] [address] HCO3 (Bld) [Moles/Vol] 24.3 mmol/L Normal 22.0-26.0 [facility] Comment on above: Performed By: #### 4 05843568 ####[address] [place] [address] Hemoglobin (Bld) [Mass/Vol] 14.7 g/dL Normal 12.0-17.0 [facility] Comment on above: Performed By: #### 4 78013886 ####[address] [place] [address] Oxygen saturation in Blood 96.2 % Normal 95.0-100.0 [facility] Comment on above: Performed By: #### 4 [id number] ####[address] [address] P CO2 Arterial 65.1 mmHg High 35.0-45.0 [facility] Comment on above: Performed By: #### 4 [id number] ####[address] [place] [address] P O2 Arterial 85.6 mmHg Normal 80.0-100.0 [facility] Comment on above: Performed By: #### 4 43823272 ####[address] [place] [id number] pH Arterial 7.254 Low 7.350-7.450 [facility] Comment on above: Performed By: #### 4 43668244 ####[place] [address] Sample Site L Radial Normal [facility] Comment on above: Performed By: #### 4 [id number] ####[place] [address] Sample Type Arterial Draw Normal [facility] Comment on above: Performed By: #### 4 77142355 ####[place] [address] CBC w/ Auto Diffon 4 Basophil Absolute 0.1 E9/L Normal 0.0-0.2 [facility] Comment on above: Performed By: #### 1 6406890, 865746470, 9413370, 3666374270, 68025868, 9259694, 8987931, 83539527, 3896616, 2637531 ####[address] [place] [id number] Basophils/100 WBC (Bld) 1.0 % Normal 0.0-2.0 [facility] Comment on above: Performed By: #### 1 7905316, 609920041, 0259608, 9629665606, 85264901, 3263692, 0599491, 52422456, 5591707, 2334829 ####[facility] [address] [place] [id number] Eos Absolute 0.2 E9/L Normal 0.0-0.5 [facility] Comment on above: Performed By: #### 1 4095039, 708125292, 3223461, 6071276206, 23255129, 6850373, 1492587, 53695027, 9426989, 2447038 ####[facility] [address] [place] [address] Eosinophils/100 WBC (Bld) 2.9 % Normal 0.0-8.0 [facility] Comment on above: Performed By: #### 1 2717320, 165014629, 7248935, 1583148329, 26250154, 0329291, 6882335, 29193695, 0214869, 7475093 ####[facility] [address] [place] [address] Erythrocyte distribution width (RBC) [Ratio] 18.2 % High 10.9-14.2 [facility] Comment on above: Performed By: #### 1 9365445, 904017792, 3912451, 1219088225, 88446337, 9149754, 0084903, 05789685, 7102393, 2417665 ####[facility] [address] [place] [address] Hematocrit (Bld) [Volume fraction] 46.0 % Normal 37.7-49.0 [facility] Comment on above: Performed By: #### 1 0407570, 655857344, 9194397, 4722983271, 82210836, 0621357, 0508403, 34578131, 3129057, 7086713 ####[facility] [address] [place] [address] Hemoglobin (Bld) [Mass/Vol] 14.2 g/dL Normal 13.5-17.5 [facility] Comment on above: Performed By: #### 1 7538938, 198366386, 0331280, 0947346590, 04406132, 5579292, 7241059, 50308138, 4046542, 8348654 ####[facility] [address] [place] [address] Lymph Absolute 1.0 E9/L Normal 1.0-4.0 [facility] Comment on above: Performed By: #### 1 7524974, 562850725, 4464123, 7223020263, 57253002, 9067192, 7477837, 99016153, 2424571, 0919636 ####[facility] [address] [place] [address] Lymphocytes/100 WBC (Bld) 14.0 % Normal 14.0-50.0 [facility] Comment on above: Performed By: #### 1 4032461, 292937317, 4755903, 1142484389, 85094777, 6947528, 5369071, 54949385, 4991985, 8488161 ####[address] [address] MCH (RBC) [Entitic mass] 27.7 pg Normal 27.0-34.0 [facility] Comment on above: Performed By: #### 1 5964428, 481498910, 0493940, 0249701977, 34098167, 4944326, 5694611, 61739447, 6878076, 7708154 ####[facility] [address] [place] [address] MCHC (RBC) [Mass/Vol] 30.8 g/dL Low 31.4-36.0 [facility] Comment on above: Performed By: #### 1 9210909, 162765851, 2998780, 5481344321, 06034267, 7114628, 4788206, 85739253, 6040456, 3107656 ####[address] [place] [address] MCV (RBC) [Entitic vol] 90.0 fL Normal 80.0-100.0 [facility] Comment on above: Performed By: #### 1 2275023, 454385009, 9553960, 2000281578, 57677997, 2658740, 2691624, 12476255, 4014283, 8983480 ####[address] [place] [address] Dauphin Absolute 0.8 E9/L Normal 0.2-1.0 [facility] Comment on above: Performed By: #### 1 3398232, 545321565, 6936143, 8575512514, 47629363, 5110655, 9304771, 37282102, 5504588, 8286439 ####[address] [place] [address] Monocytes/100 WBC (Bld) 11.3 % Normal 4.0-14.0 [facility] Comment on above: Performed By: #### 1 1194943, 442626532, 8337093, 4178845365, 16184025, 6993730, 4629865, 15244211, 6078115, 1688664 ####[address] [address] Neutro Absolute 4.8 E9/L Normal 2.0-7.5 [facility] Comment on above: Performed By: #### 1 9932071, 548090579, 0744315, 2724802652, 65662217, 2058256, 8483774, 42159013, 0623535, 8237443 ####[address] [address] Neutro Auto 70.8 % Normal 36.0-75.0 [facility] Comment on above: Performed By: #### 1 6632230, 691185073, 8621198, 7485626213, 51484939, 9513274, 4191582, 86980800, 4002374, 6706330 ####[place] [address] [place] [address] Platelet 206.0 E9/L Normal 150.0-500.0 [facility] Comment on above: Performed By: #### 1 2519168, 196478908, 3377751, 2640501490, 16708300, 7654141, 4009124, 62849932, 1822315, 3434420 ####[address] [place] [address] Platelet mean volume (Bld) [Entitic vol] 7.3 fL Normal 6.4-10.8 [facility] Comment on above: Performed By: #### 1 5957723, 737133229, 6157809, 7013879408, 67952222, 3992256, 5169595, 95696223, 8587042, 9753425 ####[place] [address] [place] [address] RBC 5.1 E12/L Normal 4.3-5.9 [facility] Comment on above: Performed By: #### 1 4612996, 947946559, 3643037, 4717486629, 73028432, 7312065, 7769818, 78565619, 7784421, 6941176 ####[address] [address] WBC 6.8 E9/L Normal 4.0-11.0 [facility] Comment on above: Performed By: #### 1 7214856, 361245733, 4251032, 1576213473, 80776602, 6301333, 8650225, 66186820, 2577298, 9268109 ####[address] [address] CMPon 09-12-2023 Albumin [Mass/Vol] 3.3 g/dL Normal 3.3-5.0 [facility] Comment on above: Performed By: #### 1 2144733, 436282257, 1097089, 7366966779, 15434407, 1116481, 9495757, 53999507, 8342894, 8881670 ####[place] [address] [place] [address] Albumin/Globulin [Mass ratio] 1.1 {ratio} Normal 1.1-2.2 [facility] Comment on above: Performed By: #### 1 5478603, 307436664, 8723049, 7958452398, 60651458, 4915498, 5400165, 74385606, 1484825, 3841455 ####[facility] [address] [place] [address] Alk Phos 94 Int._Unit/L Normal 21-98 [facility] Comment on above: Performed By: #### 1 2113807, 698333215, 1194698, 3796222619, 58432390, 4167141, 1890244, 31867288, 5752885, 4489379 ####[facility] [address] [place] [address] ALT 14 Int._Unit/L Normal 6-46 [facility] Comment on above: Performed By: #### 1 7545278, 737772219, 1239430, 1183077289, 35142234, 7055906, 1665907, 65704522, 4991155, 5785309 ####[address] [address] Anion gap [Moles/Vol] 10 mmol/L Normal 6-16 [facility] Comment on above: Performed By: #### 1 0069622, 991425555, 6209903, 1504917517, 92545399, 7948538, 9096209, 54353414, 3218992, 9043723 ####[place] [address] [place] [address] AST 12 Int._Unit/L Normal 5-43 [facility] Comment on above: Performed By: #### 1 0451371, 145128425, 6028407, 9671270354, 02810854, 2418484, 0826813, 35267674, 9387009, 1430610 ####[place] [address] [place] [address] Bili Total 0.6 mg/dL Normal 0.0-1.1 [facility] Comment on above: Performed By: #### 1 0880217, 037465054, 2382622, 8877239328, 22395303, 8314031, 5453290, 79737074, 7601622, 1792393 ####[facility] [address] [place] [address] BUN/Creat Ratio 21 No Units High 10-20 [facility] Comment on above: Performed By: #### 1 3499449, 451181527, 2195701, 9342434375, 88332742, 6587955, 1058288, 47264468, 1612388, 7323732 ####[facility] [address] [place] [address] Calcium [Mass/Vol] 8.3 mg/dL Low 8.9-11.1 [facility] Comment on above: Performed By: #### 1 0282775, 333588420, 8172524, 7407746304, 05507480, 4642146, 8972863, 64381153, 0080417, 7824299 ####[facility] [address] [place] [address] Chloride [Moles/Vol] 97 mmol/L Low 101-111 [facility] Comment on above: Performed By: #### 1 6980510, 554351989, 3833132, 3621245120, 50111329, 7203396, 2816560, 93241696, 8728556, 1786487 ####[facility] [address] [place] [address] CO2 [Moles/Vol] 29 mmol/L Normal 21-31 [facility] Comment on above: Performed By: #### 1 5047312, 995605983, 3735098, 9350056996, 15654802, 8761886, 6611586, 53917717, 6826694, 8103081 ####[facility] [address] [place] [address] Creatinine [Mass/Vol] 2.8 mg/dL High 0.5-1.3 [facility] Comment on above: Performed By: #### 1 1503201, 707489609, 2134080, 4077603052, 41455402, 1494301, 9457699, 75303808, 4525157, 3499888 ####[facility] [address] [place] [address] Globulin (S) [Mass/Vol] 3.1 g/dL Normal 1.4-4.0 [facility] Comment on above: Performed By: #### 1 8102901, 996241985, 1270365, 9417112856, 33766029, 1878980, 2954335, 36591734, 0159030, 4406168 ####[facility] [address] [place] [address] Glucose [Mass/Vol] 560 mg/dL Abnormal 55-199 [facility] Comment on above: Result Comment: Crit ical Result Verified by Repeat AnalysisCritical Result S_GLU:560 Called to and read back by: ULICES BACA at: 09/12/2023 14:56:08 by:[email or web address] Performed By: #### 1 9089993, 005170198, 1773685, 8292076875, 70466469, 0642847, 3471773, 65048722, 0829340, 3400795 ####[facility] [address] [place] [address] Potassium [Moles/Vol] 6.3 mmol/L Abnormal 3.5-5.3 [facility] Comment on above: Result Comment: Crit ical Result Verified by Repeat AnalysisCritical Result S_K:6.3 Called to and read back by: ULICES BACA at: 09/12/2023 14:56:08 by:DOMINICK Performed By: #### 1 2973959, 379529425, 6821134, 6083954643, 57657701, 5461759, 4583336, 79749425, 4631176, 2007412 ####[address] [place] [address] Protein [Mass/Vol] 6.4 g/dL Normal 6.0-7.8 [facility] Comment on above: Performed By: #### 1 2430843, 932448840, 4485220, 4832315701, 88466822, 7035502, 2146471, 45683671, 4588350, 3582366 ####[facility] [address] [place] [address] Sodium [Moles/Vol] 130 mmol/L Low 135-145 [facility] Comment on above: Performed By: #### 1 7109579, 058628256, 9671068, 8132475511, 04129745, 8812091, 4512136, 87825323, 4660538, 8185784 ####[facility] [address] [place] [address] Urea nitrogen [Mass/Vol] 59 mg/dL High 5-21 [facility] Comment on above: Performed By: #### 1 0956553, 924027747, 6847148, 4065598977, 47556317, 9710110, 7047073, 49537256, 9229460, 6485200 ####[facility] [address] [place] [address] Capillary Glucose POCon 08-22 Glucose [Mass/Vol] 298 mg/dL High 55-99 [facility] Comment on above: Performed By: #### 2 23694712 ####[facility] [address] [place] [address] Glucose [Mass/Vol] 336 mg/dL High 55-99 [facility] Comment on above: Result Comment: Thelma BAE Performed By: #### 2 87312460 ####[facility] [address] [place] [address] Glucose [Mass/Vol] 431 mg/dL High 55-99 [facility] Comment on above: Result Comment: Thelma BAE Performed By: #### 2 90044789 ####[facility] [address] [place] [address] Glucose [Mass/Vol] 468 mg/dL Abnormal 55-99 [facility] Comment on above: Performed By: #### 2 22529676 ####[facility] [address] [place] [address] Glucose Cap >500 Abnormal 55-99 [facility] Comment on above: Result Comment: Repe at Test Performed By: #### 2 06130269 ####[facility] [address] [place] [address] Glucose Cap >500 Abnormal 55-99 [facility] Comment on above: Result Comment: Pricila elbert Meter Performed By: #### 2 53047876 ####[facility] [address] [place] [address] Consent for Treatmenton 08-22 Consent for Treatment [id number]# 1.00TIFF Normal [facility] Consultation Noteon 09-12-19 Consultation Note Normal [facility] Comment on above: Result Comment: Elec tronically Signed By: Shaquille Calvert Jr., PA-C\.br\Date and Time Signed: 09/12/23 17:54 EST ED Clinical Summaryon 2023 ED Clinical Summary Normal [facility] ED Note-Physicianon 09-12-19 ED Note-Physician Normal [facility] Comment on above: Result Comment: Elec tronically Signed By: Nicole Myers DO\.br\Date and Time Signed: 09/12/23 16:07 EST ED Patient Education Noteon 09-12-2023 ED Patient Education Note Normal [facility] ED Patient Summaryon 024 ED Patient Summary Normal [facility] Glucoseon 09-12-2023 Glucose [Mass/Vol] 533 mg/dL Abnormal 55-199 [facility] Comment on above: Result Comment: Crit ical Result Verified by Previous ResultCritical Result S_GLU:533 Called to and read back by: YI FERRER at: 09/12/2023 19:24:47 by:PRADEEP KERR Performed By: #### 2 9187[address] ####[facility] [address] [place] [address] Influenza A&B Agon 4 Influenzae A Ag Negative Normal Negative [facility] Comment on above: Performed By: #### 2 819842834, 93185049 ####[facility] [address] [place] [address] Influenzae B Ag Negative Normal Negative [facility] Comment on above: Result Comment: Test sensitivity and specificity vary for age group, specimen type, antigen types, and prevalence of disease. Test results must be evaluated in conjunction with other clinical data available to the physician. Individuals who received nasally administered Influenza A vaccine may have positive test results up to 3 days after vaccination. Performed By: #### 2 489554612, 26475050 ####[facility] [address] [place] [address] Lactic Acidon 09-12-2023 Lactic Acid Lvl 1.2 mmol/L Normal 0.5-2.2 [facility] Comment on above: Performed By: #### 2 [address]86646 ####[address] [address] Lactic Acid Lvl 1.2 mmol/L Normal 0.5-2.2 [facility] Comment on above: Performed By: #### 1 6600346, 657666393, 0529309, 5862186763, 12330477, 1654277, 3291563, 76748242, 3220532, 1201922 ####[facility] [address] [place] [address] Lipase Levelon 09-12-2023 Lipase Lvl 14 unit/L Normal 13-58 [facility] Comment on above: Performed By: #### 1 4074886, 848280711, 1163730, 6677714098, 60136327, 7976263, 3364879, 07697570, 0266889, 2240287 ####[place] [address] [place] [address] Monitor Recordon 09-12-2023 Monitor Record [id number]# 1.00TIFF Normal [facility] Monitor Record [id number]# 1.00TIFF Normal [facility] Monitor Record [id number]# 1.00TIFF Normal [facility] Monitor Record [id number]# 1.00TIFF Normal [facility] Monitor Record [id number]# 1.00TIFF Normal [facility] PT & PTTon 09-12-2023 aPTT Coag (PPP) [Time] 32.5 second(s) Normal 25.1-36.5 [facility] Comment on above: Result Comment: Para [...] the same coagulation reagent and instrumentation as [facility]. Currently there are no coagulation studies available worldwide for children to 14 days, and no normal ranges. Heparin therapeutic range (represented by Anti-Factor Xa activity of 0.2 - 0.4 U/mL) corresponds to PTT of 56.6 - 109.0 sec. Performed By: #### 1 0835377, 235141355, 4509572, 7399612865, 49235607, 5426224, 5887898, 72461862, 5219821, 0881229 ####[facility] [address] [place] [address] INR Coag (PPP) [Relative time] 1.1 {INR} Invalid Interpretation Code [facility] Comment on above: Result Comment: INR results are specifically intended to assess patients stabilized on long-term Anticoagulation therapy suggested INR?s ?Less Intensive Anticoagulation? 2.0 ? 3.0Conventional Range 3.0 ? 4.5 Performed By: #### 1 9040301, 950009204, 3817238, 0591831214, 51514855, 6796724, 3858063, 13192984, 8948126, 4853395 ####[facility] [address] [place] [address] PT Coag (PPP) [Time] 12.0 second(s) Normal 9.4-12.5 [facility] Comment on above: Result Comment: 15 [...] the same coagulation reagent and instrumentation as [facility]. Currently there are no coagulation studies available worldwide for children to 14 days, and no normal ranges. Performed By: #### 1 5443538, 489151024, 0150311, 4827986691, 91436736, 6596038, 1083434, 26881442, 7561297, 4061855 ####[facility] [address] [place] [address] Pre-Arrival Noteon Pre-Arrival Note Normal [facility] Procalcitoninon 09-12-2023 Procalcitonin .10 ng/mL Normal .00-.50 [facility] Comment on above: Result Comment: <0.5 ng/mL [...] to 24 hours. Performed By: #### 1 3707817, 852365573, 7550029, 5418959667, 60597769, 4434613, 4359071, 27996866, 6861751, 8196075 ####[facility] [address] [place] [address] Rapid COVID Antigen ([facility])on 09-12-2023 Rapid COV Int NEG Ctl Pass Normal [facility] Comment on above: Performed By: #### 2 825435298, 49066675 ####[facility] [address] [place] [address] Rapid COV Int POS Ctl Pass Normal [facility] Comment on above: Performed By: #### 2 433435464, 26456515 ####[facility] [address] [place] [address] SARS-CoV+SARS-CoV-2 (COVID-19) Ag IA.rapid Ql (Resp) Not detected Normal Not Detected [facility] Comment on above: Result Comment: The [employer]? System for Rapid Detection of SARS-CoV-2 [...] other viruses or pathogens; and, in the [facility], this test is only authorized for the duration of the declaration that circumstances exist justifying the authorization of emergency use of in vitro diagnostics for detection and/or diagnosis of the virus that causes COVID-19 under Section 564(b)(1) of the Act, 21 U.S.C. ? 360bbb-3(b)(1), unless the authorization is terminated or revoked sooner. Performed By: #### 2 [id number], 43917111 ####[address] [place] [address] Triglycerideson 09-12-2023 Triglyceride [Mass/Vol] 131 mg/dL Normal <=149 [facility] Comment on above: Performed By: #### 2 696171, 43284005, 5486446 ####[address] [place] [address] Troponinon 09-12-2023 Troponin 59.30 pg/mL Abnormal 15.90-38.40 [facility] Comment on above: Result Comment: Crit ical Result Verified by Repeat AnalysisCritical Result I_TnIHS:59.3 Called to and read back by: ULICES BACA at: 09/12/2023 16:43:58 by:[email or web address] 95% CI (Confidence Interval) PPV (Positive Predictive Value) for myocardial infarction in females is 38 pg/mL, in males 51 pg/mL. The results should be used in conjunction with clinical conditions of myocardial infarction.(Access High Sensitivity Troponin I Instructions For Use, Opal Alexander, March 2018) Performed By: #### 1 8015780, 312499005, 0665712, 9183495357, 89189214, 6601675, 5900923, 24193798, 8447327, 9302258 ####[facility] [address] [place] [address] U Drug Screenon 09-12-2023 U Amph Scr Negative Invalid Interpretation Code [facility] Comment on above: Performed By: #### 2 027609 ####[facility] [address] [place] [address] U Jo-Ann Scr Negative Invalid Interpretation Code [facility] Comment on above: Performed By: #### 2 494376 ####[facility] [address] [place] [address] U Benzodia Scr Negative Invalid Interpretation Code [facility] Comment on above: Performed By: #### 2 722770 ####[facility] [address] [place] [address] U Cannab Scr Negative Invalid Interpretation Code [facility] Comment on above: Performed By: #### 2 214774 ####[facility] [address] [place] [address] U Cocaine Scr Negative Invalid Interpretation Code [facility] Comment on above: Performed By: #### 2 989014 ####[facility] [address] [place] [address] U Opiate Scr Negative Invalid Interpretation Code [facility] Comment on above: Performed By: #### 2 274511 ####[facility] [address] [place] [address] U PCP Scr Negative Invalid Interpretation Code [facility] Comment on above: Performed By: #### 2 132562 ####[facility] [address] [place] [address] UA With Cult Reflexon 2023 Bilirubin Ql (U) Negative Normal Negative [facility] Comment on above: Performed By: #### 1 4583139 ####[facility] [address] [place] [place] [address] Clarity (U) CLEAR Normal Clear [facility] Comment on above: Performed By: #### 1 5430096 ####[facility] [address] [place] [place] [address] Color (U) YELLOW Normal Yellow [facility] Comment on above: Performed By: #### 1 9696095 ####[facility] [place] [address] Crystals LM Ql (Urine sed) Present Normal [facility] Comment on above: Performed By: #### 1 2506935 ####[address] [address] Epithelial cells.squamous LM.HPF (Urine sed) [#/Area] 0-2 Normal 0-2 [facility] Comment on above: Performed By: #### 1 3714229 ####[address] [address] Glucose Test strip (U) [Mass/Vol] 3+ Abnormal Negative [facility] Comment on above: Performed By: #### 1 3227920 ####[address] [address] Hemoglobin Ql (U) 1+ Abnormal Negative [facility] Comment on above: Performed By: #### 1 3917111 ####[address] [address] Ketones (U) [Mass/Vol] Negative Normal Negative [facility] Comment on above: Performed By: #### 1 1341295 ####[address] [address] Arispe.plasma/Lithi um.RBC (Bld) [Mass ratio] 0-3 Normal 0-3 [facility] Comment on above: Performed By: #### 1 3280032 ####[address] [address] Nitrite Ql (U) Negative Normal Negative [facility] Comment on above: Performed By: #### 1 4361108 ####[address] [address] pH (U) 5.5 [pH] Invalid Interpretation Code 5.0-9.0 [facility] Comment on above: Performed By: #### 1 9490894 ####[address] [address] Protein (U) [Mass/Vol] 1+ Abnormal Negative [facility] Comment on above: Performed By: #### 1 6799432 ####[facility] [address] [place] [address] Specific gravity (U) [Rel density] 1.015 Invalid Interpretation Code 1.005-1.030 [facility] Comment on above: Performed By: #### 1 2061165 ####[address] [address] Type of Urine collection method Clean Catch Normal [facility] Comment on above: Performed By: #### 1 2821381 ####[address] [address] Urobilinogen Qn (U) 0.2 {Itz'U}/dL Normal 0.0-1.0 [facility] Comment on above: Performed By: #### 1 4004102 ####[address] [address] WBC Auto Ql (U) Negative Normal Negative [facility] Comment on above: Performed By: #### 1 8923185 ####[address] [address] WBC LM.HPF (Urine sed) [#/Area] 0-5 Normal 0-5 [facility] Comment on above: Performed By: #### 1 0657315 ####[address] [address] XR Chest Single Viewon 09-12 XR Chest Single View Normal [facility] eGFRon 09-12-2023 eGFR 28 mL/min/1.73 m2 Low >=59 [facility] Comment on above: Order Comment: Order added by Discern Expert. Performed By: #### 1 4659447, 2344202 ####[address] [place] [address] eGFR 27 mL/min/1.73 m2 Low >=59 [facility] Comment on above: Order Comment: Order added by Discern Expert. Performed By: #### 2 020369, 20420315, 4692997 ####[address] [place] [address] eGFR 24 mL/min/1.73 m2 Low >=59 [facility] Comment on above: Order Comment: Order added by Discern Expert. Performed By: #### 1 6746054, 155073445, 0540833, 1222874121, 85154897, 7591252, 3250288, 06811610, 4895359, 0791052 ####[facility] [address] [place] [address] Consent for Procedure/Surger yon 09-11-2023 Consent for Procedure/Surgery [id number]# 1.00TIFF Normal [facility] Correspondence - [place] Correspondence - Wound [id number]# 1.00TIFF Normal [facility] Consent for Procedure/Surger yon 09-05-2023 Consent for Procedure/Surgery [id number]# 1.00TIFF [facility] Consent for Treatmenton 08-21 Consent for Treatment [id number]#1 .00TIFF Normal [facility] Correspondence - [place] Correspondence - Wound [id number]# 1.00TIFF Normal [facility] Correspondence - Wound [id number]# 1.00TIFF Normal [facility] Insurance Correspondenceon 0 09-05-2023 Insurance Correspondence [id number]# 1.00TIFF Normal [facility] Multi-Wound Charton 09-05-19 Multi-Wound Chart [id number]# 1.00TIFF Normal [facility] Nursing Assessment - [place] 09-05-2023 Nursing Assessment - Wound [id number]# 1.00TIFF Normal [facility] Physician Orderon 09-05-2023 Physician Order [id number]# 1.00TIFF Normal [facility] Progress Note - [place] 08-21 Progress Note - Wound [id number]# 1.00TIFF Normal [facility] No Panel InformationOrdered By: Elisa Ansari on 08-30-2023 GS Occasional White Blood Cells 3+ Gram Positive Cocci 3+ Gram Positive Rods 1+ Gram Negative Rods [facility] Basophils Auto (Bld) [#/Vol] Ordered By: Alban Arrington on 06-21-2023 Basophils (Bld) [#/Vol] 0.1 10*3/uL 0.0-0.2 [place] Basophils/100 WBC Auto (Bld) Ordered By: Alban Arrington on 06-21-2023 Basophils/100 WBC (Bld) 0.7 % . [place] Calcium [Mass/volume] in Ser um or PlasmaOrdered By: Alban Arrington on 06-21-2023 Calcium [Mass/Vol] 8.7 mg/dL 8.6-10.3 [facility] Carbon dioxide, total [Moles /volume] in Serum or PlasmaOrdered By: Alban Arrington on 06-21-2023 CO2 [Moles/Vol] 41.1 mmol/L 21.0-31.0 [facility] Chloride [Moles/volume] in S raymond or PlasmaOrdered By: Alban Arrington on 06-21-2023 Chloride [Moles/Vol] 100 mmol/L 98-107 [facility] Creatinine [Mass/volume] in Serum or PlasmaOrdered By: Alban Arrington on 06-21-2023 Creatinine [Mass/Vol] 1.60 mg/dL 0.70-1.30 [place] Eosinophils Auto (Bld) [#/Vo l]Ordered By: Alban Arrington on 06-21-2023 Eosinophils (Bld) [#/Vol] 0.5 10*3/uL 0.0-0.45 [place] Eosinophils/100 WBC Auto (Bl d)Ordered By: Alban Arrington on 06-21-2023 Eosinophils/100 WBC (Bld) 5.4 % . [place] Erythrocyte distribution wid th Auto (RBC) [Ratio]Ordered By: Alban Arrington on 06-21-2023 Erythrocyte distribution width (RBC) [Ratio] 16.0 % 12.0-14.8 [place] Glucose Glucometer (BldC) [M ass/Vol]Ordered By: Alban Arrington on 06-21-2023 Glucose [Mass/Vol] 200 mg/dL [facility] Comment on above: Random Glucose Refer ence Range is dependent on time and content of last meal. Glucose of more than 200 mg/dL in a nonstressed, ambulatory subject supports the diagnosis of Diabetes Mellitus. Glucose [Mass/volume] in Ser um or PlasmaOrdered By: Alban Arrington on 06-21-2023 Glucose [Mass/Vol] 60 mg/dL 70-100 [facility] Comment on above: Delta: 220 on [id number] recommended reference rangeRandom Glucose Reference Range is dependent on time and content of last meal. Glucose of more than 200 mg/dL in a nonstressed, ambulatory subject supports the diagnosis of Diabetes Mellitus. Hematocrit Auto (Bld) [Volum e fraction]Ordered By: Alban Arrington on 06-21-2023 Hematocrit (Bld) [Volume fraction] 46.3 % 38.8-50.0 [place] Hemoglobin [Mass/volume] in BloodOrdered By: Alban Arrington on 06-21-2023 Hemoglobin (Bld) [Mass/Vol] 14.9 g/dL 13.0-17.0 [place] Leukocytes [#/volume] correc maria guadalupe for nucleated erythrocytes in Blood by Automated counOrdered By: Alban Arrington on 06-21-2023 WBC corrected for nucl RBC Auto (Bld) [#/Vol] 9.5 10*3/uL 4.1-10.5 [place] Lymphocytes Auto (Bld) [#/Vo l]Ordered By: Alban Arrington on 06-21-2023 Lymphocytes (Bld) [#/Vol] 2.5 10*3/uL 1.00-4.8 [place] Lymphocytes/100 WBC Auto (Bl d)Ordered By: Alban Arrington on 06-21-2023 Lymphocytes/100 WBC (Bld) 26.3 % . [place] MCH Auto (RBC) [Entitic mass ]Ordered By: Alban Arrington on 06-21-2023 MCH (RBC) [Entitic mass] 28.4 pg 27.5-35.2 [place] MCHC Auto (RBC) [Mass/Vol]Or dered By: Alban Arrington on 06-21-2023 MCHC (RBC) [Mass/Vol] 32.2 g/dL 32.5-35.6 [place] MCV Auto (RBC) [Entitic vol] Ordered By: Alban Arrington on 06-21-2023 MCV (RBC) [Entitic vol] 88.3 fL 83.5-101 [place] Magnesium [Mass/volume] in S raymond or PlasmaOrdered By: Alban Arrington on 06-21-2023 Magnesium [Mass/Vol] 1.8 mg/dL 1.9-2.7 [facility] Monocytes Auto (Bld) [#/Vol] Ordered By: Alban Arrington on 06-21-2023 Monocytes (Bld) [#/Vol] 0.9 10*3/uL 0.0-0.8 [place] Monocytes/100 WBC Auto (Bld) Ordered By: Alban Arrington on 06-21-2023 Monocytes/100 WBC (Bld) 9.9 % . [place] Neutrophils Auto (Bld) [#/Vo l]Ordered By: Alban Arrington on 06-21-2023 Neutrophils (Bld) [#/Vol] 5.5 10*3/uL 1.8-7.7 [place] Neutrophils/100 WBC Auto (Bl d)Ordered By: Alban Arrington on 06-21-2023 Neutrophils/100 WBC (Bld) 57.7 % . [place] No Panel InformationOrdered By: Alban Arrington on 06-21-2023 Estimated GFR (CKD-EPI) 47.816 mL/Min [facility] Creatinine Clearance (Chem 69.61 [place] Bedside Glucose #[address]/rn [place] [facility] Glucose Comment See comment [place] Comment on above: Glu2: Will Repeat Te st Nucleated erythrocytes [Pres ence] in Blood by Automated countOrdered By: Alban Arrington on 06-21-2023 Nucleated RBC Auto Ql (Bld) 0.1 /100{WBC} 0-0.5 [place] Platelet mean volume Auto (B ld) [Entitic vol]Ordered By: Alban Arrington on 06-21-2023 Platelet mean volume (Bld) [Entitic vol] 7.1 fL 6.6-10.1 [place] Platelets Auto (Bld) [#/Vol] Ordered By: Alban Arrington on 06-21-2023 Platelets (Bld) [#/Vol] 241 10*3/uL 150-450 [place] Potassium [Moles/volume] in Serum or PlasmaOrdered By: Alban Arrington on 06-21-2023 Potassium [Moles/Vol] 4.4 mmol/L 3.5-5.1 [place] RBC Auto (Bld) [#/Vol]Ordere d By: Alban Arrington on 06-21-2023 RBC (Bld) [#/Vol] 5.24 10*6/uL 3.90-5.60 [facility] Serum or plasma anion gap de terminationOrdered By: Alban Arrington on 06-21-2023 Anion gap [Moles/Vol] 6.3 mmol/L 6.0-15.0 [place] Sodium [Moles/volume] in Ser um or PlasmaOrdered By: Alban Arrington on 06-21-2023 Sodium [Moles/Vol] 143 mmol/L 136-145 [facility] Urea nitrogen [Mass/volume] in Serum or PlasmaOrdered By: Alban Arrington on 06-21-2023 Urea nitrogen [Mass/Vol] 38 mg/dL 7-25 [place] WBC Auto (Bld) [#/Vol]Ordere d By: Alban Arrington on 06-21-2023 WBC (Bld) [#/Vol] 9.5 10*3/uL 4.1-10.5 [facility] Laboratory - Chemistry and C hemistry - challengeOrdered By: Alban Arrington on 06-20-2023 CO2 [Moles/Vol] 38.0 mmol/L 23.0-27.0 [facility] HCO3 (Bld) [Moles/Vol] 36.0 mmol/L 23.0-29.0 [place] No Panel InformationOrdered By: Alban Arrington on 06-20-2023 Arterial Blood Base Excess 8.1 mmol/L -3.0-3.0 [place] Arterial Blood Oxygen Content 9.0 mmol/L 6.6-9.7 [place] Arterial Blood Oxygen Saturation 94.1 % 95.0-100.0 [place] Arterial Blood Partial Pressure CO2 63.6 mm[Hg] 35.0-45.0 [place] Arterial Blood Partial Pressure O2 69.0 mm[Hg] 80.0-100.0 [place] Arterial Blood pH 7.37 7.35-7.45 [facility] Blood Gas Critical Value See comment [place] Comment on above: Critical Value dickerson d on: 06/20/2023 at 17:52 Blood Gas Liter Flow 5l L/min [facility] Blood Gas Sample Site Right radial [place] FiO2 Na % [place] Monocyte distribution width [Entitic volume] in Blood by AutomatedOrdered By: Alban Arrington on 06-19-2023 Monocyte distribution width Auto (Bld) [Entitic vol] 15.91 % 0.00-20.00 [place] Automated erythrocytes count in urine sediment (number/area)Ordered By: Art Kirby on 06-18-2023 RBC Auto (Urine sed) [#/Area] 0-1 [HPF] 0-4 [place] Automated leukocytes count i n urine sediment (number/area)Ordered By: Art Kirby on 06-18-2023 WBC Auto (Urine sed) [#/Area] None seen [HPF] 0-4 [place] Basophils Auto (Bld) [#/Vol] Ordered By: Art Kirby on 06-18-2023 Basophils (Bld) [#/Vol] 0.0 10*3/uL 0.0-0.2 [place] Basophils/100 WBC Auto (Bld) Ordered By: Art Kirby on 06-18-2023 Basophils/100 WBC (Bld) 0.7 % . [place] Bilirubin Auto test strip Ql (U)Ordered By: Art Kirby on 06-18-2023 Bilirubin Ql (U) Negative Negative [facility] COVID CepheidOrdered By: Tanvir jeet Kofi on 06-18-2023 SARS-CoV-2 (COVID-19) Ab IA Ql Negative Negative [place] Comment on above: This is a duplicate [employer] Xpert Xpress CoV-2/Flu/RSV Plus RNA by RT-PCR result to be used for statistical tracking purpose only. SARS-CoV-2 (COVID-19) RNA ERIBERTO+probe Ql (Unsp spec) [place] Calcium [Mass/volume] in Ser um or PlasmaOrdered By: Art Kirby on 06-18-2023 Calcium [Mass/Vol] 8.8 mg/dL 8.6-10.3 [facility] Carbon dioxide, total [Moles /volume] in Serum or PlasmaOrdered By: Art Kirby on 06-18-2023 CO2 [Moles/Vol] 33.2 mmol/L 21.0-31.0 [facility] Chloride [Moles/volume] in S raymond or PlasmaOrdered By: Art Kirby on 06-18-2023 Chloride [Moles/Vol] 102 mmol/L 98-107 [facility] Creatinine [Mass/volume] in Serum or PlasmaOrdered By: Art Kirby on 06-18-2023 Creatinine [Mass/Vol] 1.51 mg/dL 0.70-1.30 [place] Eosinophils Auto (Bld) [#/Vo l]Ordered By: Art Kirby on 06-18-2023 Eosinophils (Bld) [#/Vol] 0.2 10*3/uL 0.0-0.45 [place] Eosinophils/100 WBC Auto (Bl d)Ordered By: Art Kirby on 06-18-2023 Eosinophils/100 WBC (Bld) 3.1 % . [place] Erythrocyte distribution wid th Auto (RBC) [Ratio]Ordered By: Art Kirby on 06-18-2023 Erythrocyte distribution width (RBC) [Ratio] 15.4 % 12.0-14.8 [place] Glucose [Mass/volume] in Ser um or PlasmaOrdered By: Art Kirby on 06-18-2023 Glucose [Mass/Vol] 294 mg/dL 70-100 [facility] Comment on above: ADA recommended refe rence rangeRandom Glucose Reference Range is dependent on time and content of last meal. Glucose of more than 200 mg/dL in a nonstressed, ambulatory subject supports the diagnosis of Diabetes Mellitus. Hematocrit Auto (Bld) [Volum e fraction]Ordered By: Art Kirby on 06-18-2023 Hematocrit (Bld) [Volume fraction] 46.7 % 38.8-50.0 [place] Hemoglobin [Mass/volume] in BloodOrdered By: Art Kirby on 06-18-2023 Hemoglobin (Bld) [Mass/Vol] 14.9 g/dL 13.0-17.0 [place] Ketones Auto test strip (U) [Mass/Vol]Ordered By: Art Kirby on 06-18-2023 Ketones (U) [Mass/Vol] Negative Negative [place] [facility] - UrinalysisOrder ed By: Art Kirby on 06-18-2023 Hyaline casts LM Ql (Urine sed) None seen [LPF] 0-8 [place] Leukocytes [#/volume] correc maria guadalupe for nucleated erythrocytes in Blood by Automated counOrdered By: Art Kirby on 06-18-2023 WBC corrected for nucl RBC Auto (Bld) [#/Vol] 6.7 10*3/uL 4.1-10.5 [place] Lymphocytes Auto (Bld) [#/Vo l]Ordered By: Art Kirby on 06-18-2023 Lymphocytes (Bld) [#/Vol] 1.4 10*3/uL 1.00-4.8 [place] Lymphocytes/100 WBC Auto (Bl d)Ordered By: Art Kirby on 06-18-2023 Lymphocytes/100 WBC (Bld) 20.2 % . [place] MCH Auto (RBC) [Entitic mass ]Ordered By: Art Kirby on 06-18-2023 MCH (RBC) [Entitic mass] 28.2 pg 27.5-35.2 [place] MCHC Auto (RBC) [Mass/Vol]Or dered By: Art Kirby on 06-18-2023 MCHC (RBC) [Mass/Vol] 32.0 g/dL 32.5-35.6 [place] MCV Auto (RBC) [Entitic vol] Ordered By: Art Kirby on 06-18-2023 MCV (RBC) [Entitic vol] 88.2 fL 83.5-101 [place] Monocyte distribution width [Entitic volume] in Blood by AutomatedOrdered By: Art Kirby on 06-18-2023 Monocyte distribution width Auto (Bld) [Entitic vol] 15.12 % 0.00-20.00 [place] Monocytes Auto (Bld) [#/Vol] Ordered By: Art Kirby on 06-18-2023 Monocytes (Bld) [#/Vol] 0.6 10*3/uL 0.0-0.8 [place] Monocytes/100 WBC Auto (Bld) Ordered By: Art Kirby on 06-18-2023 Monocytes/100 WBC (Bld) 9.2 % . [place] Natriuretic peptide B [Mass/ Vol]Ordered By: Art Kirby on 06-18-2023 Natriuretic peptide B (Bld) [Mass/Vol] 98.0 pg/mL 5-100 [place] Neutrophils Auto (Bld) [#/Vo l]Ordered By: Art Kirby on 06-18-2023 Neutrophils (Bld) [#/Vol] 4.5 10*3/uL 1.8-7.7 [place] Neutrophils/100 WBC Auto (Bl d)Ordered By: Art Kirby on 06-18-2023 Neutrophils/100 WBC (Bld) 66.8 % . [place] No Panel InformationOrdered By: Art Kirby on 06-18-2023 Estimated GFR (CKD-EPI) 51.256 mL/Min [facility] Creatinine Clearance (Chem 71.87 [place] Nucleated erythrocytes [Pres ence] in Blood by Automated countOrdered By: Art Kirby on 06-18-2023 Nucleated RBC Auto Ql (Bld) 0.1 /100{WBC} 0-0.5 [place] Platelet mean volume Auto (B ld) [Entitic vol]Ordered By: Art Kirby on 06-18-2023 Platelet mean volume (Bld) [Entitic vol] 7.2 fL 6.6-10.1 [place] Platelets Auto (Bld) [#/Vol] Ordered By: Art Kirby on 06-18-2023 Platelets (Bld) [#/Vol] 214 10*3/uL 150-450 [place] Potassium [Moles/volume] in Serum or PlasmaOrdered By: Art Kirby on 06-18-2023 Potassium [Moles/Vol] 5.2 mmol/L 3.5-5.1 [place] Protein Auto test strip (U) [Mass/Vol]Ordered By: Art Kirby on 06-18-2023 Protein (U) [Mass/Vol] 100 mg/dL Negative [place] RBC Auto (Bld) [#/Vol]Ordere d By: Art Kirby on 06-18-2023 RBC (Bld) [#/Vol] 5.30 10*6/uL 3.90-5.60 [facility] Serum or plasma anion gap de terminationOrdered By: Art Kirby on 06-18-2023 Anion gap [Moles/Vol] 8.0 mmol/L 6.0-15.0 [place] Sodium [Moles/volume] in Ser um or PlasmaOrdered By: Art Kirby on 06-18-2023 Sodium [Moles/Vol] 138 mmol/L 136-145 [facility] Squamous epithelial cells de tection in urine sediment by light microscopyOrdered By: Art Kirby on 06-18-2023 Epithelial cells.squamous LM Ql (Urine sed) 0-1 [HPF] 0-2 [place] Troponin I.cardiac [Mass/vol ume] in Serum or Plasma by Detection limit <= 0.01 ng/Ordered By: Art Kirby on 06-18-2023 Troponin I.cardiac DL <= 0.01 ng/mL [Mass/Vol] 8.0 pg/mL 0.0-20.0 [place] Urea nitrogen [Mass/volume] in Serum or PlasmaOrdered By: Art Kirby on 06-18-2023 Urea nitrogen [Mass/Vol] 47 mg/dL 7 [place] Urine appearanceOrdered By: Art Kirby on 06-18-2023 Appearance (U) Clear Clear [place] Urine bacteria detection by automated methodOrdered By: Art Kirby on 06-18-2023 Bacteria Auto Ql (U) None seen None Seen [facility] Urine colorOrdered By: Carmen Kirby on 06-18-2023 Color (U) Yellow Yellow [place] Urine glucose measurement by automated test strip (mass/volume)Ordered By: Art Kirby on 06-18-2023 Glucose Auto test strip (U) [Mass/Vol] >=1000 mg/dL Normal [place] Urine hemoglobin detection b y automated test stripOrdered By: Art Kirby on 06-18-2023 Hemoglobin Auto test strip Ql (U) Negative Negative [place] Urine leukocyte esterase det ection by automated test stripOrdered By: Art Kirby on 06-18-2023 Leukocyte esterase Auto test strip Ql (U) Negative Negative [place] Urine nitrite detection by a utomated test stripOrdered By: Art Kirby on 06-18-2023 Nitrite Auto test strip Ql (U) Negative Negative [place] Urobilinogen Auto test strip (U) [Mass/Vol]Ordered By: Art Kirby on 06-18-2023 Urobilinogen (U) [Mass/Vol] Normal mg/dL Normal [place] WBC Auto (Bld) [#/Vol]Ordere d By: Art Kirby on 06-18-2023 WBC (Bld) [#/Vol] 6.7 10*3/uL 4.1-10.5 [facility] pH Auto test strip (U)Ordere d By: Art iKrby on 06-18-2023 pH (U) 1.020 [pH] 1.001-1.030 [place] pH (U) 5.5 [pH] 5.0-9.0 [place] CHEMISTRYOrdered By: Lab ROP User on 06-15-2023 Glucose [Mass/Vol] 332 mg/dL High 55 - 99 mg/dL [facility] C POC Subsection Comment on above: Result Comment: Thelma BAE POC Username CAROLINE OSORIO Invalid Interpretation Code [facility] POC Subsection Sodium [Moles/Vol] 510776963812 mmol/L Invalid Interpretation Code [facility] POC Subsection Sodium [Moles/Vol] 785465482 mmol/L Invalid Interpretation Code [facility] POC Subsection Glucose [Mass/Vol] 341 mg/dL High 55 - 99 mg/dL [facility] C POC Subsection Comment on above: Result Comment: Thelma BAE POC Username ORTIZ WILD Invalid Interpretation Code [facility] POC Subsection Sodium [Moles/Vol] 096366575135 mmol/L Invalid Interpretation Code [facility] POC Subsection Sodium [Moles/Vol] 980832468 mmol/L Invalid Interpretation Code [facility] POC Subsection Glucose [Mass/Vol] 172 mg/dL High 55 - 99 mg/dL [facility] C POC Subsection Comment on above: Result Comment: Thelma BAE POC Username ORTIZ WILD Invalid Interpretation Code [facility] POC Subsection Sodium [Moles/Vol] 414324180567 mmol/L Invalid Interpretation Code [facility] POC Subsection Sodium [Moles/Vol] 560308192 mmol/L Invalid Interpretation Code [facility] POC Subsection [...] 1.6 mg/dL High 0.5 - 1.3 mg/dL [facility] Remisol GFR/1.73 sq M.predicted among non-blacks MDRD (S/P/Bld) [Vol rate/Area] 48 mL/min/1.73 m2 Low >=59mL/min/1.73 m2 [facility] Chem S Comment on above: Interpretive Data: C hronic kidney disease could be indicated at eGFR's of less than 60 mL/min/1.73m2. Kidney failure is indicated at less than 15 mL/min/1.73m2. Glucose [Mass/Vol] 165 mg/dL Normal 55 - 199 mg/dL [facility] Remisol Comment on above: Interpretive Data: I f this glucose result represents a fasting glucose, interpretation should refer to the following reference range: 55-99 mg/dL Potassium [Moles/Vol] 4.7 mmol/L Normal 3.5 - 5.3 mmol/L [facility] Remisol Sodium [Moles/Vol] 139 mmol/L Normal 135 - 145 mmol/L [facility] Remisol Urea nitrogen [Mass/Vol] 63 mg/dL High 5 - 21 mg/dL [facility] Remisol Urea nitrogen/Creatinine [Mass ratio] 39 mg/mg High 10 - 20 [facility] Remisol CHEMISTRYOrdered By: SYSTEM SYSTEM on 06-14-2023 Anion gap [Moles/Vol] 7 mmol/L Normal 6 - 16 mEq/L [facility] Remisol Calcium [Mass/Vol] 8.0 mg/dL Low 8.9 - 11.1 mg/dL [facility] Remisol Chloride [Moles/Vol] 106 mmol/L Normal 101 - 111 mmol/ L [facility] Remisol CO2 [Moles/Vol] 30 mmol/L Normal 21 - 31 mmol/L [facility] Remisol GFR/1.73 sq M.predicted among non-blacks MDRD (S/P/Bld) [Vol rate/Area] 37 mL/min/1.73 m2 Low >=59mL/min/1.73 m2 [facility] Chem S Comment on above: Interpretive Data: C hronic kidney disease could be indicated at eGFR's of less than 60 mL/min/1.73m2. Kidney failure is indicated at less than 15 mL/min/1.73m2. Glucose [Mass/Vol] 78 mg/dL Normal 55 - 199 mg/dL [facility] Remisol Comment on above: Interpretive Data: I f this glucose result represents a fasting glucose, interpretation should refer to the following reference range: 55-99 mg/dL Potassium [Moles/Vol] 5.1 mmol/L Normal 3.5 - 5.3 mmol/L [facility] Remisol Sodium [Moles/Vol] 138 mmol/L Normal 135 - 145 mmol/L [facility] Remisol Urea nitrogen [Mass/Vol] 71 mg/dL High 5 - 21 mg/dL [facility] Remisol Urea nitrogen/Creatinine [Mass ratio] 36 mg/mg High 10 - 20 [facility] Remisol CHEMISTRYOrdered By: Sandee Hicks on 06-14-2023 Creatinine [Mass/Vol] 2.0 mg/dL High 0.5 - 1.3 mg/dL [facility] Remisol HEMATOLOGYOrdered By: SYSTEM SYSTEM on 06-14-2023 [...] 7.8 E9/L Normal 4.0 - 11.0 E9/L [facility] HemeAutoSS CHEMISTRYOrdered By: SYSTEM SYSTEM on 06-13-2023 [...] rate/Area] 29 mL/min/1.73 m2 Low >=59mL/min/1.73 m2 [facility] Chem S Comment on above: Interpretive Data: C hronic kidney disease could be indicated at eGFR's of less than 60 mL/min/1.73m2. Kidney failure is indicated at less than 15 mL/min/1.73m2. Glucose [Mass/Vol] 139 mg/dL Normal 55 - 199 mg/dL [facility] Remisol Comment on above: Interpretive Data: I f this glucose result represents a fasting glucose, interpretation should refer to the following reference range: 55-99 mg/dL Potassium [Moles/Vol] 4.8 mmol/L Normal 3.5 - 5.3 mmol/L [facility] Remisol Sodium [Moles/Vol] 136 mmol/L Normal 135 - 145 mmol/L [facility] Remisol Urea nitrogen [Mass/Vol] 69 mg/dL High 5 - 21 mg/dL [facility] Remisol Urea nitrogen/Creatinine [Mass ratio] 29 mg/mg High 10 - 20 [facility] Remisol CRP [Mass/Vol] 0.7 mg/dL Normal <=1.9mg/dL [facility] Remis ol CHEMISTRYOrdered By: Erin morocho on 06-13-2023 Albumin Elph (U) [Mass fraction] 97.0 mg/dL Invalid Interpretation Code [facility] Comment on above: Interpretive Data: T he reference range and other method performance specifications have not been established for this test; results should be integrated into the clinical context for interpretation. Creatinine (U) [Mass/Vol] 93.4 mg/dL Invalid Interpretation Code [facility] Comment on above: Interpretive Data: T he reference range and other method performance specifications have not been established for this test; results should be integrated into the clinical context for interpretation. Sodium (U) [Moles/Vol] 21 mmol/L Invalid Interpretation Code [facility] Comment on above: Interpretive Data: T he reference range and other method performance specifications have not been established for this test; results should be integrated into the clinical context for interpretation. CHEMISTRYOrdered By: Kaz Schmidt on 06-13-2023 U Osmolality 447 mOsm/kg Normal 50 - 1400 mOsm/kg [facility] Man UA SS HEMATOLOGYOrdered By: SYSTEM SYSTEM [...] 6.0 E9/L Normal 4.0 - 11.0 E9/L [facility] HemeAutoSS Reference Laboratory Testing Ordered By: FotologUser on 06-13-2023 Centromere protein B Ab Qn [...] on above: Result Comment: Perf ormed at: [address] [id number] PhD Vern Grossent Ribonucleoprotein extractable nuclear Ab [...] Scleroderma-diffuse, Scleroderma-Autoimmune Myositis Overlap Syndrome, Systemic Lupus Tojqpcajlxzqt-Plegebgautl-Aethopljxw Myositis Overlap Syndrome, Systemic Autoimmune Rheumatic Disease, [...] Cytopenias, Linear Scleroderma, Antiphospholipid Syndrome Performed at: [facility] [address] [id number] PhD Vern Gage Sjogrens syndrome-A extractable nuclear [...] AM) Normal Negative [facility] UA Auto SS Arispe.plasma/Lithi um.RBC (Bld) [Mass ratio] 0-3 /HPF Normal [...] AM) Invalid Interpretation Code 1.005 - 1.030 [facility] UA Auto SS UA Spec Desc Clean Catch (06/13/23 10:09 AM) Normal [facility] UA Auto SS Urobilinogen Qn (U) 0.3821162 {Itz'U}/dL Normal 0.0 - 1.0 EU/dL [facility] UA Auto SS WBC Auto Ql (U) Negative (06/13/23 10:09 AM) Normal Negative [facility] UA Auto SS WBC casts LM.LPF (Urine sed) [#/Area] 4-10 (06/13/23 10:09 AM) Normal [facility] UA Auto SS WBC LM.HPF (Urine sed) [#/Area] 0-5 /HPF Normal 0-5/HPF [facility] UA Auto SS CHEMISTRYOrdered By: SYSTEM SYSTEM [...] 9.20 pg/mL Low 15.90 - 38.40 pg/mL [facility] Remisol Comment on above: Interpretive Data: T he 95% CI (Confidence Interval) PPV (Positive Predictive Value) for myocardial infarction in females is 38 pg/mL, in males 51 pg/mL. The results should be used in conjunction with clinical conditions of myocardial infarction. (Access High Sensitivity Troponin I Instructions For Use, [employer], March 2018) Troponin I.cardiac [Mass/Vol] 7.00 pg/mL Low 15.90 - 38.40 pg/mL [facility] [place] [facility] Comment on above: Interpretive Data: T he 95% CI (Confidence Interval) PPV (Positive Predictive Value) for myocardial infarction in females is 38 pg/mL, in males 51 pg/mL. The results should be used in conjunction with clinical conditions of myocardial infarction. (Access High Sensitivity Troponin I Instructions For Use, [employer], March 2018) Lactate [Mass/Vol] 1.7 mmol/L Normal 0.5 - 2.2 mmol/L [facility] [place] Remisol CHEMISTRYOrdered By: Sasha Arroyo on 06-11-2023 Natriuretic peptide B (Bld) [Mass/Vol] 121 pg/mL High 5 - 80 pg/mL [facility] [place] HemeManSS COAGULATIONOrdered By: Radha Quinn on 06-11-2023 aPTT Coag (PPP) [Time] 33.9 s Normal 25.1 - 36.5 second(s) [facility] [place] Auto Coag Comment on above: Interpretive Data: [...] the same coagulation reagent and instrumentation as [facility] [place]. Currently there are no coagulation studies available [...] the same coagulation reagent and instrumentation as [facility] [place]. Currently there are no coagulation studies available [...] 1.3 mmol/L Normal 0.5 - 2.2 mmol/L [facility] [place] Res p Auto SS communications maintainer+ Art 140.0 mmol/L Normal 135.0 - 145.0 mmol/L [facility] [place] Resp Auto SS Device Cannula (06/11/23 2:22 PM) Normal [facility] [place] Resp Auto SS Drawn by SAS Invalid Interpretation Code [facility] [place] Resp Auto SS FCOHb Art 2.2 % Normal 1.5 - 4.9 % [facility] [place] Resp Auto SS Comment on above: Interpretive Data: R eference range Nonsmoker <1.5% Smoker <5.0% Heavy Smoker <9.0% FMetHb Art 0.1 % Normal 0.0 - 1.9 % [facility] [place] Resp Auto SS FO2Hb Art 88.7 % Low 93.0 - 100.0 % [facility] Resp Auto SS HCO3 (Bld) [Moles/Vol] 28.8 mmol/L High 22.0 - 26.0 mmol/L [facility] [place] Resp Auto SS Hemoglobin (Bld) [Mass/Vol] 14.5 g/dL Normal 12.0 - 17.0 gm/dL [facility] [place] Resp Auto SS P CO2 Arterial 59.5 mm[Hg] High 35.0 - 45.0 mmHg FTM C Resp Auto SS P O2 Arterial 57.8 mm[Hg] Low 80.0 - 100.0 mmHg FTM C Resp Auto SS pH (Bld) 7.348 [pH] Low 7.350 - 7.450 [facility] [place] Resp Auto SS Sample Site L Radial (06/11/23 2:22 PM) Normal [facility] [place] Resp Auto SS Sample Type Arterial Draw (06/11/23 2:22 PM) Normal [facility] [place] Resp Auto SS Sodium [Moles/Vol] 32 mmol/L Invalid Interpretation Code [facility] [place] Resp Auto SS HEMATOLOGYOrdered By: SYSTEM SYSTEM [...] 7.1 E9/L Normal 4.0 - 11.0 E9/L [facility] [place] HemeAutoSS MICRO OTHER TESTSOrdered By: Liberty Quinn on 06-11-2023 Rapid COV Int NEG Ctl Pass (06/11/23 2:16 PM) Normal [facility] [place] Man Sero Rapid COV Int POS Ctl Pass (06/11/23 2:16 PM) Normal [facility] [place] Man Sero SARS-CoV+SARS-CoV-2 (COVID-19) Ag IA.rapid Ql (Resp) Not Detected 23 (06/11/23 2:16 PM) Normal Not Detected [facility] [place] Man Sero Comment on above: Interpretive Data: Mariia hdez [employer] System for Rapid Detection of SARS-CoV-2 is [...] For in vitro diagnostic use. In the [facility], only for use under an Emergency Use [...] or revoked sooner. No Panel InformationOrdered By: ANGPROCESSSERSAN [facility] MICROBIOLOGY on 06-11-2023 Blood Culture Charcoal No growth at 4 days. Final to follow at 7 days. [facility] Blood Culture Charcoal No growth at 4 days. Final to follow at 7 days. [facility] CHEMISTRYOrdered By: Tatyana Long on 05-22-2023 HbA1c (Bld) [Mass fraction] 11.0 % High <=5.9% [facility] [place] ChemAutoSS CHEMISTRYOrdered By: Lab ROP User on 08-04-2022 Glucose [Mass/Vol] mg/dL Invalid Interpretation Code 55 - 99 mg/dL [facility] [place] POC Subsection Comment on above: Result Comment: Thelma maxwell RN/ POC Device SN [id number] Invalid Interpretation Code [facility] [place] POC Subsection POC User ID [id number] Invalid Interpretation Code [facility] [place] POC Subsection POC Username JANIA BALDWIN Invalid Interpretation Code [facility] [place] POC Subsection CHEMISTRYOrdered By: SYSTEM SYSTEM on 08-04-2022 Troponin I.cardiac [Mass/Vol] 9.90 pg/mL Low 15.90 - 38.40 pg/mL [facility] [place] Remisol Anion gap [Moles/Vol] 16 mmol/L Normal 6 - 16 mEq/L [facility] Remisol Calcium [Mass/Vol] 9.4 mg/dL Normal 8.9 - 11.1 mg/dL [facility] Chloride [Moles/Vol] 89 mmol/L Low 101 - 111 mmol/ L [facility] [place] Remisol CO2 [Moles/Vol] 24 mmol/L Normal 21 - 31 mmol/L [facility] Creatinine [Mass/Vol] 1.7 mg/dL High 0.5 - 1.3 mg/dL [facility] GFR/1.73 sq M.predicted among blacks MDRD (S/P/Bld) [Vol rate/Area] 50 mL/min/1.73 m2 Low >=59mL/min/1.73 m2 FT Chem S GFR/1.73 sq M.predicted among non-blacks MDRD (S/P/Bld) [Vol rate/Area] 41 mL/min/1.73 m2 Low >=59mL/min/1.73 m2 [facility] Chem S Glucose [Mass/Vol] 897 mg/dL Invalid [...] Comment: Thelma maxwell RN/ POC Device SN [id number] Invalid Interpretation Code [facility] POC Subsection POC User ID [id number] Invalid Interpretation Code [facility] [place] POC Subsection POC Username HUDSON ABDI Invalid Interpretation Code FT POC Subsection CHEMISTRYOrdered By: Lab ROP User on 03-08-2022 Glucose [Mass/Vol] 395 mg/dL High 55 - 99 mg/dL FTM C POC Subsection Comment on above: Result Comment: Thelma maxwell RN/MD POC Device SN [id number] Invalid Interpretation Code [facility] POC Subsection POC User ID [id number] Invalid Interpretation Code [facility] POC Subsection POC [...] rate/Area] 57 mL/min/1.73 m2 Low >=59mL/min/1.73 m2 [facility] Chem S GFR/1.73 sq M.predicted among non-blacks MDRD (S/P/Bld) [Vol rate/Area] 47 mL/min/1.73 m2 Low >=59mL/min/1.73 m2 [facility] [place] Chem S Globulin (S) [Mass/Vol] 3.4 g/dL [...] PM) Normal Negative [facility] UA Auto SS Arispe.plasma/Lithi um.RBC (Bld) [Mass ratio] 0-3 /HPF Normal [...] PM) Invalid Interpretation Code 1.005 - 1.030 [facility] UA Auto SS UA Spec Desc Clean Catch (03/08/22 11:09 PM) Normal [facility] UA Auto SS Urobilinogen Qn (U) [id number] {Itz'U}/dL Normal 0.0 - 1.0 EU/dL [facility] [place] UA Auto SS WBC Auto Ql (U) Negative (03/08/22 11:09 PM) Normal Negative [facility] [place] UA Auto SS WBC LM.HPF (Urine sed) [#/Area] 0-5 /HPF Normal 0-5/HPF [facility] [place] UA Auto SS Vital Signs Date Time Vital Sign Value Performing Clinician Facility 04-29-2025 11:28-0400 Body height 180.3 cm Mounika Brooke MD Work Phone: [facility] 04-29-2025 11:28-0400 Body mass index (BMI) [Ratio] 36.79 kg/m2 Mounika Brooke MD Work Phone: [facility] 04-29-2025 11:28-0400 Body temperature 97.2 [degF] Mounika Brooke MD Work Phone: [facility] 04-29-2025 11:28-0400 Body weight 119.66 kg Mounika Brooke MD Work Phone: [facility] 04-29-2025 11:28-0400 Diastolic blood pressure 60 mm[Hg] Mounika Brooke MD Work Phone: [facility] 04-29-2025 11:28-0400 Heart rate 89 /min Mounika Brooke MD Work Phone: [facility] 04-29-2025 11:28-0400 SaO2% (BldA) [Mass fraction] 95 % Mounika Brooke MD Work Phone: [facility] 04-29-2025 11:28-0400 Systolic blood pressure 112 mm[Hg] Mounika Brooke MD Work Phone: [facility] 03-13-2025 12:30-0400 Body height 180.3 cm Mounika Brooke MD Work Phone: [facility] 03-13-2025 12:30-0400 Body mass index (BMI) [Ratio] 38.02 kg/m2 Mounika Brooke MD Work Phone: [facility] 03-13-2025 12:30-0400 Body temperature 98.4 [degF] Mounika Brooke MD Work Phone: [facility] 03-13-2025 12:30-0400 Body weight 123.65 kg Mounika Brooke MD Work Phone: [facility] 03-13-2025 12:30-0400 Diastolic blood pressure 60 mm[Hg] Mounika Brooke MD Work Phone: [facility] 03-13-2025 12:30-0400 Heart rate 80 /min Mounika Brooke MD Work Phone: [facility] 03-13-2025 12:30-0400 SaO2% (BldA) [Mass fraction] 92 % Mounika Brooke MD Work Phone: [facility] 03-13-2025 12:30-0400 Systolic blood pressure 124 mm[Hg] Mounika Brooke MD Work Phone: [facility] 02-05-2025 12:28-0400 Body height 180.3 cm Mounika Brooke MD Work Phone: [facility] 02-05-2025 12:28-0400 Body mass index (BMI) [Ratio] 36.43 kg/m2 Mounika Brooke MD Work Phone: [facility] 02-05-2025 12:28-0400 Body temperature 98.71 [degF] Mounika Brooke MD Work Phone: [facility] 02-05-2025 12:28-0400 Body weight 118.48 kg Mounika Brooke MD Work Phone: [facility] 02-05-2025 12:28-0400 Diastolic blood pressure 82 mm[Hg] Mounika Brooke MD Work Phone: [facility] 02-05-2025 12:28-0400 Heart rate 77 /min Mounika Brooke MD Work Phone: [facility] 02-05-2025 12:28-0400 SaO2% (BldA) [Mass fraction] 98 % Mounika Brooke MD Work Phone: [facility] 02-05-2025 12:28-0400 Systolic blood pressure 138 mm[Hg] Mounika Brooke MD Work Phone: [facility] 12-21-2024 15:22-0400 Hourly Rounding [facility] 12-21-2024 15:22-0400 Promise to Return [facility] 12-21-2024 14:32-0400 Hourly Rounding [facility] 12-21-2024 14:32-0400 Promise to Return [facility] 12-21-2024 13:30-0400 Hourly Rounding [facility] 12-21-2024 13:30-0400 Promise to Return [facility] 12-21-2024 11:00-0400 Blood Pressure Location [facility] 12-21-2024 11:00-0400 Body temperature 97.88 [degF] [facility] 12-21-2024 11:00-0400 Diastolic blood pressure 78 mm[Hg] [facility] 12-21-2024 11:00-0400 Heart rate 80 /min [facility] 12-21-2024 11:00-0400 Mean blood pressure 100 mm[Hg] [facility] 12-21-2024 11:00-0400 Respiratory rate 16 /min [facility] 12-21-2024 11:00-0400 SaO2% (BldA) [Mass fraction] 96 % [facility] 12-21-2024 11:00-0400 Systolic blood pressure 145 mm[Hg] [facility] 12-21-2024 08:00-0400 Diastolic blood pressure 88 mm[Hg] [facility] 12-21-2024 08:00-0400 Heart rate 76 /min [facility] 12-21-2024 08:00-0400 Mean blood pressure 113 mm[Hg] [facility] 12-21-2024 08:00-0400 SaO2% (BldA) [Mass fraction] 97 % [facility] 12-21-2024 08:00-0400 Systolic blood pressure 164 mm[Hg] [facility] 12-21-2024 04:00-0400 Body temperature 97.7 [degF] [facility] 12-21-2024 04:00-0400 Diastolic blood pressure 60 mm[Hg] [facility] 12-21-2024 04:00-0400 Diastolic blood pressure 76 mm[Hg] [facility] 12-21-2024 04:00-0400 Heart rate 95 /min [facility] 12-21-2024 04:00-0400 Heart rate 62 /min [facility] 12-21-2024 04:00-0400 Mean blood pressure 90 mm[Hg] [facility] 12-21-2024 04:00-0400 Mean blood pressure 72 mm[Hg] [facility] 12-21-2024 04:00-0400 Respiratory rate 18 /min [facility] 12-21-2024 04:00-0400 SaO2% (BldA) [Mass fraction] 95 % [facility] 12-21-2024 04:00-0400 Systolic blood pressure 97 mm[Hg] [facility] 12-21-2024 04:00-0400 Systolic blood pressure 118 mm[Hg] [facility] 12-21-2024 00:00-0400 Heart rate 62 /min [facility] 12-20-2024 19:37-0400 Heart rate 67 /min [facility] 12-20-2024 14:09-0400 SaO2% (BldA) [Mass fraction] 93.9 % [facility] Resp Auto SS 12-04-2024 14:11-0400 Body height 180.3 cm Mounika Brooke MD Work Phone: [facility] 12-04-2024 14:11-0400 Body mass index (BMI) [Ratio] 35.7 kg/m2 Mounika Brooke MD Work Phone: [facility] 12-04-2024 14:11-0400 Body temperature 97.5 [degF] Mounika Brooke MD Work Phone: [facility] 12-04-2024 14:11-0400 Body weight 116.12 kg Mounika Brooke MD Work Phone: [facility] 12-04-2024 14:11-0400 Diastolic blood pressure 70 mm[Hg] Mounika Brooke MD Work Phone: [facility] 12-04-2024 14:11-0400 Heart rate 111 /min Mounika Brooke MD Work Phone: [facility] 12-04-2024 14:11-0400 SaO2% (BldA) [Mass fraction] 97 % Mounika Brooke MD Work Phone: [facility] 12-04-2024 14:11-0400 Systolic blood pressure 120 mm[Hg] Mounika Brooke MD Work Phone: [facility] 12-02-2024 15:00-0400 Heart rate 74 /min Nicole Jonathon [facility] 12-02-2024 15:00-0400 SaO2% (BldA) [Mass fraction] 93 % Nicole Jonathon [facility] 12-02-2024 15:00-0400 Diastolic blood pressure 97 mm[Hg] Nicole Jonathon [facility] 12-02-2024 15:00-0400 Mean blood pressure 120 mm[Hg] Nicole Jonathon [facility] 12-02-2024 15:00-0400 Respiratory rate 18 /min Nicole Jonathon [facility] 12-02-2024 15:00-0400 Systolic blood pressure 166 mm[Hg] Nicole Jonathon [facility] 12-02-2024 14:00-0400 SaO2% (BldA) [Mass fraction] 97 % Nicole Jonathon [facility] 12-02-2024 14:00-0400 Heart rate 78 /min Nicole Jonathon [facility] 12-02-2024 14:00-0400 Diastolic blood pressure 86 mm[Hg] Nicole Jonathon [facility] 12-02-2024 14:00-0400 Mean blood pressure 113 mm[Hg] Nicole Jonathon [facility] 12-02-2024 14:00-0400 Systolic blood pressure 167 mm[Hg] Nicole Jonathon [facility] 12-02-2024 13:00-0400 SaO2% (BldA) [Mass fraction] 96 % Nicole Jonathon [facility] 12-02-2024 13:00-0400 Heart rate 73 /min Nicole Jonathon [facility] 12-02-2024 13:00-0400 Diastolic blood pressure 98 mm[Hg] Nicole Myers [facility] 12-02-2024 13:00-0400 Mean blood pressure 123 mm[Hg] Nicole Myers [facility] 12-02-2024 13:00-0400 Systolic blood pressure 173 mm[Hg] Nicole Myers [facility] 12-02-2024 12:42-0400 Body temperature 96.8 [degF] Nicole Myers [facility] 12-02-2024 12:42-0400 Heart rate 81 /min Nicole Myers [facility] 12-02-2024 12:42-0400 Respiratory rate 20 /min Nicole Myers [facility] 09-04-2024 14:00-0500 Body height 180.3 cm Kayla Sweeney MD Work Phone: [facility] 09-04-2024 14:00-0500 Body mass index (BMI) [Ratio] 39.05 kg/m2 Kayla Sweeney MD Work Phone: [facility] 09-04-2024 14:00-0500 Body weight 127.01 kg Kayla Sweeney MD Work Phone: [facility] 09-04-2024 14:00-0500 Diastolic blood pressure 66 mm[Hg] Kayla Sweeney MD Work Phone: [facility] 09-04-2024 14:00-0500 Heart rate 80 /min Kayla Sweeney MD Work Phone: [facility] 09-04-2024 14:00-0500 Respiratory rate 18 /min Kayla Sweeney MD Work Phone: [facility] 09-04-2024 14:00-0500 Systolic blood pressure 116 mm[Hg] Kayla Sweeney MD Work Phone: [facility] 07-15-2024 14:27-0500 Body height 180.3 cm Kayla Sweeney MD Work Phone: [facility] 07-15-2024 14:27-0500 Body mass index (BMI) [Ratio] 38.22 kg/m2 Kayla Sweeney MD Work Phone: [facility] 07-15-2024 14:27-0500 Body weight 124.29 kg Kayla Sweeney MD Work Phone: [facility] 07-15-2024 14:27-0500 Diastolic blood pressure 58 mm[Hg] Kayla Sweeney MD Work Phone: [facility] 07-15-2024 14:27-0500 Heart rate 81 /min Kayla Sweeney MD Work Phone: [facility] 07-15-2024 14:27-0500 Respiratory rate 18 /min Kayla Sweeney MD Work Phone: [facility] 07-15-2024 14:27-0500 Systolic blood pressure 120 mm[Hg] Kayla Sweeney MD Work Phone: [facility] 07-11-2024 13:50-0500 Body height 175.3 cm Mounika Brooke MD Work Phone: [facility] 07-11-2024 13:50-0500 Body mass index (BMI) [Ratio] 43.15 kg/m2 Mounika Brooke MD Work Phone: [facility] 07-11-2024 13:50-0500 Body temperature 97.81 [degF] Mounika Brooke MD Work Phone: [facility] 07-11-2024 13:50-0500 Body weight 132.54 kg Mounika Brooke MD Work Phone: [facility] 07-11-2024 13:50-0500 Diastolic blood pressure 80 mm[Hg] Mounika Brooke MD Work Phone: [facility] 07-11-2024 13:50-0500 Heart rate 73 /min Mounika Brooke MD Work Phone: [facility] 07-11-2024 13:50-0500 SaO2% (BldA) [Mass fraction] 92 % Mounika Brooke MD Work Phone: [facility] 07-11-2024 13:50-0500 Systolic blood pressure 130 mm[Hg] Mounika Brooke MD Work Phone: [facility] 07-09-2024 14:40-0500 Body temperature 98.06 [degF] Nicole Myers [facility] 07-09-2024 14:40-0500 Diastolic blood pressure 93 mm[Hg] Nicole Myers [facility] 07-09-2024 14:40-0500 Heart rate 73 /min Nicole Myers [facility] 07-09-2024 14:40-0500 Respiratory rate 20 /min Nicole Myers [facility] 07-09-2024 14:40-0500 SaO2% (BldA) [Mass fraction] 96 % Nicole Myers [facility] 07-09-2024 14:40-0500 Systolic blood pressure 196 mm[Hg] Nicole Myers [facility] 07-03-2024 12:45-0500 Body mass index (BMI) [Ratio] 43.3 kg/m2 Mounika Brooke MD Work Phone: [facility] 07-03-2024 12:45-0500 Body temperature 98.01 [degF] Mounika Brooke MD Work Phone: [facility] 07-03-2024 12:45-0500 Body weight 133 kg Mounika Brooke MD Work Phone: [facility] 07-03-2024 12:45-0500 Heart rate 84 /min Mounika Brooke MD Work Phone: [facility] 07-03-2024 12:45-0500 SaO2% (BldA) [Mass fraction] 93 % Mounika Brooke MD Work Phone: [facility] 06-23-2024 13:39-0500 Body temperature 97.7 [degF] [facility] 06-23-2024 13:39-0500 Diastolic blood pressure 79 mm[Hg] [facility] 06-23-2024 13:39-0500 Heart rate 71 /min [facility] 06-23-2024 13:39-0500 Respiratory rate 22 /min [facility] 06-23-2024 13:39-0500 SaO2% (BldA) [Mass fraction] 92 % [facility] 06-23-2024 13:39-0500 Systolic blood pressure 182 mm[Hg] [facility] 06-21-2024 13:36-0400 Body height 177.8 cm Jennifer ROWAN Work Phone: [facility] 06-21-2024 13:36-0400 Body mass index (BMI) [Ratio] 41.78 kg/m2 Jennifer ROWAN Work Phone: [facility] 06-21-2024 13:36-0400 Body temperature 98.1 [degF] Jennifer Short PA Work Phone: [facility] 06-21-2024 13:36-0400 Body weight 132.09 kg Jennifer Short PA Work Phone: [facility] 06-21-2024 13:36-0400 Diastolic blood pressure 89 mm[Hg] Jennifer Short PA Work Phone: [facility] 06-21-2024 13:36-0400 Heart rate 71 /min Jennifer Short PA Work Phone: [facility] 06-21-2024 13:36-0400 SaO2% (BldA) [Mass fraction] 91 % Jennifer Short PA Work Phone: [facility] 06-21-2024 13:36-0400 Systolic blood pressure 139 mm[Hg] Jennifer ROWAN Work Phone: [facility] 04-29-2024 14:19-0400 Body height 177.8 cm Mounika Brooke MD Work Phone: [facility] 04-29-2024 14:19-0400 Body mass index (BMI) [Ratio] 42.47 kg/m2 Mounika Brooke MD Work Phone: [facility] 04-29-2024 14:19-0400 Body temperature 98.01 [degF] Mounika Brooke MD Work Phone: [facility] 04-29-2024 14:19-0400 Body weight 134.26 kg Mounika Brooke MD Work Phone: [facility] 04-29-2024 14:19-0400 Diastolic blood pressure 70 mm[Hg] Mounika Brooke MD Work Phone: [facility] 04-29-2024 14:19-0400 Heart rate 75 /min Mounika Brooke MD Work Phone: [facility] 04-29-2024 14:19-0400 SaO2% (BldA) [Mass fraction] 88 % Mounika Brooke MD Work Phone: [facility] 04-29-2024 14:19-0400 Systolic blood pressure 138 mm[Hg] Mounika Brooke MD Work Phone: [facility] 02-09-2024 14:31-0400 Blood Pressure Location [facility] 02-09-2024 14:31-0400 Body temperature 97.88 [degF] Gisselle Orzech [facility] 02-09-2024 14:31-0400 Diastolic blood pressure 86 mm[Hg] Gisselle Orzech [facility] 02-09-2024 14:31-0400 Heart rate 72 /min Gisselle Orzech [facility] 02-09-2024 14:31-0400 Respiratory rate 16 /min Gisselle Orzech [facility] 02-09-2024 14:31-0400 Systolic blood pressure 138 mm[Hg] Gisselle Orzech [facility] 01-15-2024 17:00-0400 Diastolic blood pressure 89 mm[Hg] Nicole Jonathon [facility] 01-15-2024 17:00-0400 Heart rate 77 /min Nicole Jonathon [facility] 01-15-2024 17:00-0400 Mean blood pressure 102 mm[Hg] Nicole Jonathon [facility] 01-15-2024 17:00-0400 Respiratory rate 15 /min Nicole Jonathon [facility] 01-15-2024 17:00-0400 Systolic blood pressure 128 mm[Hg] Nicole Jonathon [facility] 01-15-2024 16:24-0400 Diastolic blood pressure 93 mm[Hg] Nicole Jonathon [facility] 01-15-2024 16:24-0400 Heart rate 69 /min Nicole Jonathon [facility] 01-15-2024 16:24-0400 Respiratory rate 18 /min Nicole Myers [facility] 01-15-2024 16:24-0400 SaO2% (BldA) [Mass fraction] 92 % Nicole Myers [facility] 01-15-2024 16:24-0400 Systolic blood pressure 156 mm[Hg] Nicole Myers [facility] 11-17-2023 12:30-0400 Diastolic blood pressure 78 mm[Hg] MD Mounika Brooke Work Phone: [place] 11-17-2023 12:30-0400 Systolic blood pressure 153 mm[Hg] MD Mounika Brooke Work Phone: [place] 11-17-2023 12:12-0400 Heart rate 82 /min MD Mounika Brooke Work Phone: [place] 11-17-2023 12:12-0400 Respiratory rate 20 /min MD Mounika Brooke Work Phone: [place] 11-17-2023 11:26-0400 Body temperature 97.6 [degF] MD Mounika Brooke Work Phone: [place] 11-17-2023 11:26-0400 SaO2% (BldA) [Mass fraction] 96 % MD Mounika Brooke Work Phone: [place] 11-17-2023 09:15-0400 Inhaled oxygen flow rate 4 L/min MD Mounika Brooke Work Phone: [place] 11-17-2023 04:17-0400 Body weight 133.2 kg MD Mounika Brooke Work Phone: [place] 11-17-2023 00:50-0400 Inhaled oxygen concentration 40 % MD Mounika Brooke Work Phone: [place] 11-13-2023 15:19-0400 Body height 180.34 cm MD Mounika Brooke Work Phone: [place] 11-11-2023 16:30-0400 Diastolic blood pressure 65 mm[Hg] [facility] 11-11-2023 16:30-0400 Heart rate 63 /min [facility] 11-11-2023 16:30-0400 Mean blood pressure 79 mm[Hg] [facility] 11-11-2023 16:30-0400 Respiratory rate 18 /min [facility] 11-11-2023 16:30-0400 SaO2% (BldA) [Mass fraction] 96 % [facility] 11-11-2023 16:30-0400 Systolic blood pressure 106 mm[Hg] [facility] 11-11-2023 16:00-0400 Diastolic blood pressure 62 mm[Hg] [facility] 11-11-2023 16:00-0400 Heart rate 64 /min [facility] 11-11-2023 16:00-0400 Mean blood pressure 84 mm[Hg] [facility] 11-11-2023 16:00-0400 Respiratory rate 15 /min [facility] 11-11-2023 16:00-0400 Systolic blood pressure 128 mm[Hg] [facility] 11-11-2023 15:30-0400 Diastolic blood pressure 77 mm[Hg] [facility] 11-11-2023 15:30-0400 Heart rate 62 /min [facility] 11-11-2023 15:30-0400 Mean blood pressure 98 mm[Hg] [facility] 11-11-2023 15:30-0400 Respiratory rate 20 /min [facility] 11-11-2023 15:30-0400 SaO2% (BldA) [Mass fraction] 95 % [facility] 11-11-2023 15:30-0400 Systolic blood pressure 141 mm[Hg] [facility] 11-11-2023 09:31-0400 FIO2 50 1 [facility] 11-11-2023 09:31-0400 Respiratory rate 20 /min [facility] 11-11-2023 09:17-0400 SaO2% (BldA) [Mass fraction] 88.7 % [facility] 11-11-2023 09:15-0400 Respiratory rate 24 /min [facility] 11-11-2023 09:07-0400 Respiratory rate 24 /min [facility] 11-11-2023 09:05-0400 Body temperature 98.6 [degF] [facility] 11-11-2023 09:05-0400 Heart rate 77 /min [facility] 11-11-2023 09:05-0400 Heart rate 76 /min [facility] 11-11-2023 08:05-0400 Body temperature 98.6 [degF] [facility] 10-30-2023 05:17-0400 Body temperature 98.42 [degF] Kaylinn Dokken [facility] 10-30-2023 05:17-0400 Diastolic blood pressure 70 mm[Hg] Kaylinn Dokken [facility] 10-30-2023 05:17-0400 Heart rate 80 /min Kaylinn Dokken [facility] 10-30-2023 05:17-0400 Respiratory rate 20 /min Kaylinn Dokken [facility] 10-30-2023 05:17-0400 SaO2% (BldA) [Mass fraction] 94 % Staci Beck [facility] 10-30-2023 05:17-0400 Systolic blood pressure 153 mm[Hg] Staci Beck [facility] 10-24-2023 23:08-0500 SaO2% (BldA) [Mass fraction] 93 % [facility] Comment on above: Order Comment: Specimen Type: BLOOD SPEC IMEN Ordering Facility: [facility] Address: [address] [place] [address] Performed By: #### 1 [id number], [id number] #### [facility] CLIA [id number] [address] [place] [address] 10-24-2023 18:39-0500 SaO2% (BldA) [Mass fraction] 96 % [facility] Comment on above: Order Comment: Specimen Type: BLOOD SPEC IMEN Ordering Facility: [facility] Address: [address] [place] [address] Performed By: #### P TTAC #### [facility] CLIA [id number] [address] [place] [address] [facility] 10-15-2023 06:20-0500 SaO2% (BldA) [Mass fraction] 98 % Mone Martinez [facility] 10-15-2023 06:12-0500 Body temperature 98.06 [degF] Mone Martinez [facility] 10-15-2023 06:12-0500 Diastolic blood pressure 75 mm[Hg] Mone Martinez [facility] 10-15-2023 06:12-0500 Heart rate 77 /min Mone Martinez [facility] 10-15-2023 06:12-0500 Respiratory rate 20 /min Mone Martinez [facility] 10-15-2023 06:12-0500 SaO2% (BldA) [Mass fraction] 98 % Mone Martinez [facility] 10-15-2023 06:12-0500 Systolic blood pressure 145 mm[Hg] Mone Martinez [facility] 10-12-2023 11:38-0500 Body temperature 97 [degF] MD Mounika Brooke Work Phone: [place] 10-12-2023 11:38-0500 Diastolic blood pressure 76 mm[Hg] MD Mounika Brooke Work Phone: [place] 10-12-2023 11:38-0500 Heart rate 74 /min MD Mounika Brooke Work Phone: [place] 10-12-2023 11:38-0500 Inhaled oxygen flow rate 4 L/min MD Mounika Brooke Work Phone: [place] 10-12-2023 11:38-0500 Respiratory rate 18 /min MD Mounika Brooke Work Phone: [place] 10-12-2023 11:38-0500 SaO2% (BldA) [Mass fraction] 97 % MD Mounika Brooke Work Phone: [place] 10-12-2023 11:38-0500 Systolic blood pressure 148 mm[Hg] MD Mounika Brooke Work Phone: [place] 10-12-2023 05:08-0500 Body weight 135.6 kg MD Mounika Brooke Work Phone: [place] 10-12-2023 00:00-0500 Inhaled oxygen concentration 4 % MD Mounika Brooke Work Phone: [place] 10-09-2023 14:10-0500 Body height 182.88 cm MD Mounika Brooke Work Phone: [place] 10-06-2023 23:47-0500 Body temperature 98.4 [degF] MD Mounika Brooke Work Phone: [place] 10-06-2023 23:47-0500 Diastolic blood pressure 78 mm[Hg] MD Mounika Brooke Work Phone: [place] 10-06-2023 23:47-0500 Heart rate 80 /min MD Mounika Brooke Work Phone: [place] 10-06-2023 23:47-0500 Inhaled oxygen flow rate 6 L/min MD Mounika Brooke Work Phone: [place] 10-06-2023 23:47-0500 Respiratory rate 20 /min MD Mounika Brooke Work Phone: [place] 10-06-2023 23:47-0500 SaO2% (BldA) [Mass fraction] 94 % MD Mounika Brooke Work Phone: [place] 10-06-2023 23:47-0500 Systolic blood pressure 160 mm[Hg] MD Mounika Brooke Work Phone: [place] 10-06-2023 20:13-0500 Body height 182.88 cm MD Mounika Brooke Work Phone: [place] 10-06-2023 20:13-0500 Body weight 136.98 kg MD Mounika Brooke Work Phone: [place] 09-24-2023 20:07-0500 Body temperature 97.52 [degF] Jose Miguel Phan [facility] 09-24-2023 20:07-0500 Diastolic blood pressure 75 mm[Hg] Jose Miguel Sylvester [facility] 09-24-2023 20:07-0500 Heart rate 80 /min Jose Miguel Sylvester [facility] 09-24-2023 20:07-0500 Respiratory rate 18 /min Jose Miguel Sylvester [facility] 09-24-2023 20:07-0500 SaO2% (BldA) [Mass fraction] 93 % Jose Miguel Sylvester [facility] 09-24-2023 20:07-0500 Systolic blood pressure 150 mm[Hg] [facility] Sylvester [facility] 09-17-2023 15:00-0500 Diastolic blood pressure 67 mm[Hg] [facility] 09-17-2023 15:00-0500 Heart rate 80 /min [facility] 09-17-2023 15:00-0500 Mean blood pressure 94 mm[Hg] [facility] 09-17-2023 15:00-0500 Respiratory rate 18 /min [facility] 09-17-2023 15:00-0500 SaO2% (BldA) [Mass fraction] 93 % [facility] 09-17-2023 15:00-0500 Systolic blood pressure 147 mm[Hg] [facility] 09-17-2023 14:23-0500 Body temperature 98.24 [degF] [facility] 09-17-2023 14:23-0500 Diastolic blood pressure 56 mm[Hg] [facility] 09-17-2023 14:23-0500 Heart rate 79 /min [facility] 09-17-2023 14:23-0500 Respiratory rate 20 /min [facility] 09-17-2023 14:23-0500 SaO2% (BldA) [Mass fraction] 92 % [facility] 09-17-2023 14:23-0500 Systolic blood pressure 99 mm[Hg] [facility] 08-06-2023 13:13-0500 Body temperature 97.88 [degF] [facility] 08-06-2023 13:13-0500 Diastolic blood pressure 78 mm[Hg] [facility] 08-06-2023 13:13-0500 Heart rate 91 /min [facility] 08-06-2023 13:13-0500 Respiratory rate 20 /min [facility] 08-06-2023 13:13-0500 SaO2% (BldA) [Mass fraction] 93 % [facility] 08-06-2023 13:13-0500 Systolic blood pressure 178 mm[Hg] [facility] 06-21-2023 13:55-0400 Diastolic blood pressure 74 mm[Hg] DO [facility] 06-21-2023 13:55-0400 Inhaled oxygen flow rate 4 L/min DO [facility] 06-21-2023 13:55-0400 SaO2% (BldA) [Mass fraction] 94 % DO [facility] 06-21-2023 13:55-0400 Systolic blood pressure 152 mm[Hg] DO [facility] 06-21-2023 13:52-0400 Body temperature 97.3 [degF] DO [facility] 06-21-2023 13:52-0400 Heart rate 72 /min DO [facility] 06-21-2023 13:52-0400 Respiratory rate 20 /min DO [facility] 06-21-2023 06:00-0400 Body weight 147.4 kg DO [facility] 06-19-2023 15:26-0400 Body height 182.88 cm DO [facility] 06-19-2023 02:16-0400 Diastolic blood pressure 77 mm[Hg] DO Reid Mendy Work Phone: [place] 06-19-2023 02:16-0400 Heart rate 77 /min DO Reid Mendy Work Phone: [place] 06-19-2023 02:16-0400 Inhaled oxygen flow rate 6 L/min DO Reid Mendy Work Phone: [place] 06-19-2023 02:16-0400 Respiratory rate 20 /min DO Reid Mendy Work Phone: [place] 06-19-2023 02:16-0400 SaO2% (BldA) [Mass fraction] 91 % DO Reid Mendy Work Phone: [place] 06-19-2023 02:16-0400 Systolic blood pressure 170 mm[Hg] DO Reid Mendy Work Phone: [place] 06-18-2023 21:43-0400 Body height 182.88 cm DO Reid Mendy Work Phone: [place] 06-18-2023 21:43-0400 Body temperature 98.5 [degF] DO Reid Mendy Work Phone: [place] 06-18-2023 21:43-0400 Body weight 140.61 kg DO Reid Mendy Work Phone: [place] 06-15-2023 17:22-0400 [facility] 06-15-2023 17:22-0400 Promise to Return Margaritoasia PAGANDAVID [facility] 06-15-2023 16:25-0400 Hourly Rounding Margaritoasia PAGANDAVID [facility] 06-15-2023 16:25-0400 Promise to Return [facility] 06-15-2023 16:20-0400 Heart rate 84 /min [facility] 06-15-2023 16:20-0400 Respiratory rate 20 /min [facility] 06-15-2023 16:07-0400 Heart rate 80 /min [facility] 06-15-2023 16:07-0400 Respiratory rate 20 /min [facility] 06-15-2023 16:07-0400 SaO2% (BldA) [Mass fraction] 93 % [facility] 06-15-2023 16:00-0400 Body temperature 98.42 [degF] [facility] 06-15-2023 16:00-0400 Diastolic blood pressure 79 mm[Hg] [facility] 06-15-2023 16:00-0400 Heart rate 88 /min [facility] 06-15-2023 16:00-0400 Systolic blood pressure 176 mm[Hg] [facility] 06-15-2023 15:25-0400 Hourly Rounding [facility] 06-15-2023 15:25-0400 Promise to Return [facility] 06-15-2023 12:02-0400 Heart rate 83 /min [facility] 06-15-2023 12:02-0400 Respiratory rate 20 /min [facility] 06-15-2023 12:02-0400 SaO2% (BldA) [Mass fraction] 92 % [facility] 06-15-2023 11:54-0400 SaO2% (BldA) [Mass fraction] 92 % [facility] 06-15-2023 10:15-0400 Diastolic blood pressure 87 mm[Hg] [facility] 06-15-2023 10:15-0400 Mean blood pressure 114 mm[Hg] [facility] 06-15-2023 10:15-0400 Systolic blood pressure 168 mm[Hg] [facility] 10:15-0400 Body temperature 98.06 [degF] [facility] 06-15-2023 08:30-0400 gluc 172 mg/dL [facility] 06-15-2023 07:35-0400 Diastolic blood pressure 83 mm[Hg[facility] 07:35-0400 Mean blood pressure 112 mm[Hg] [facility] 06-15-2023 07:35-0400 Systolic blood pressure 168 mm[Hg] [facility] 06-15-2023 07:33-0400 Body temperature 98.06 [degF] [facility] 06-15-2023 00:39-0400 Blood Pressure Location [facility] 06-14-2023 20:00-0400 Body temperature 98.42 [degF] [facility] 06-14-2023 16:12-0400 Blood Pressure Location [facility] 06-14-2023 16:12-0400 Body temperature 97.7 [degF] [facility] 06-14-2023 16:12-0400 Mean blood pressure 123 mm[Hg[facility]-14-[facility] 08:20-0400 Mean blood pressure 122 mm[Hg] [facility] 06-14-2023 08:19-0400 Body temperature 98.06 [degF] [facility] 06-14-2023 05:50-0400 FIO2 50 % [facility] 06-14-2023 00:50-0400 Mean blood pressure 108 mm[Hg] [facility] 06-13-2023 23:55-0400 FIO2 50 % [facility] 06-13-2023 20:00-0400 gluc 190 mg/dL Cindy PAGANGENESIS [facility] 06-13-2023 11:54-0400 FIO2 50 % Cindy RICARDO [facility] 06-13-2023 08:00-0400 Blood Pressure Location [facility] HALEIGH [facility] 06-13-2023 08:00-0400 Mean blood pressure 104 mm[Hg] Cindy RICARDO [facility] 06-12-2023 16:38-0400 gluc 296 mg/dL Cindy RICARDO [facility] 06-11-2023 21:00-0400 Heart rate 73 /min Cindy RICARDO [facility] 06-11-2023 20:25-0400 Heart rate 75 /min [facility] 06-11-2023 19:30-0400 Respiratory rate 16 /min [facility] 06-11-2023 18:30-0400 Respiratory rate 14 /min [facility] 06-11-2023 14:22-0400 SaO2% (BldA) [Mass fraction] 90.8 % Cindy RICARDO [facility] 05-22-2023 13:29-0400 Blood Pressure Location [facility] 05-22-2023 13:29-0400 Diastolic blood pressure 74 mm[Hg] [facility] 05-22-2023 13:29-0400 Heart rate 74 /min [facility] 05-22-2023 13:29-0400 SaO2% (BldA) [Mass fraction] 87 % [facility] 05-22-2023 13:29-0400 Systolic blood pressure 135 mm[Hg] [facility] 05-08-2023 10:30-0400 Diastolic blood pressure 81 mm[Hg] Bashar Wabaunsee [facility] 05-08-2023 10:30-0400 Mean blood pressure 113 mm[Hg] Bashar Wabaunsee [facility] 05-08-2023 10:30-0400 Systolic blood pressure 176 mm[Hg] Bashar Wabaunsee [facility] 05-08-2023 10:01-0400 Blood Pressure Location Bashar Wabaunsee [facility] 05-08-2023 10:01-0400 Diastolic blood pressure 84 mm[Hg] Bashar Wabaunsee [facility] 05-08-2023 10:01-0400 Heart rate 68 /min Bashar Wabaunsee [facility] 05-08-2023 10:01-0400 SaO2% (BldA) [Mass fraction] 88 % Bashar Wabaunsee [facility] 05-08-2023 10:01-0400 Systolic blood pressure 175 mm[Hg] Bashar Wabaunsee [facility] 12-02-2022 11:12-0400 Diastolic blood pressure 86 mm[Hg] [facility] 12-02-2022 11:12-0400 Mean blood pressure 105 mm[Hg] [facility] 12-02-2022 11:12-0400 Systolic blood pressure 142 mm[Hg] [facility] 12-02-2022 10:55-0400 Blood Pressure Location [facility] 12-02-2022 10:55-0400 Diastolic blood pressure 82 mm[Hg] [facility] MAR[facility] 12-02-2022 10:55-0400 Heart rate 74 /min [facility] 12-02-2022 10:55-0400 SaO2% (BldA) [Mass fraction] 92 % [facility] 12-02-2022 10:55-0400 Systolic blood pressure 169 mm[Hg] [facility] 09-13-2022 13:21-0500 Diastolic blood pressure 92 mm[Hg] [facility] 09-13-2022 13:21-0500 Mean blood pressure 115 mm[Hg] [facility] 09-13-2022 13:21-0500 Systolic blood pressure 160 mm[Hg] [facility] 09-13-2022 13:16-0500 Blood Pressure Location [facility] 09-13-2022 13:16-0500 Body temperature 97.7 [degF] [facility] 09-13-2022 13:16-0500 Diastolic blood pressure 83 mm[Hg] [facility] 09-13-2022 13:16-0500 Heart rate 78 /min [facility] 09-13-2022 13:16-0500 SaO2% (BldA) [Mass fraction] 96 % [facility] 09-13-2022 13:16-0500 Systolic blood pressure 193 mm[Hg] [facility] 08-04-2022 17:12-0500 Diastolic blood pressure 88 mm[Hg] Mone Juan [facility] 08-04-2022 17:12-0500 Heart rate 76 /min Mone Juan [facility] 08-04-2022 17:12-0500 Mean blood pressure 102 mm[Hg] Mone Juan [facility] 08-04-2022 17:12-0500 Respiratory rate 18 /min Mone Juan [facility] 08-04-2022 17:12-0500 SaO2% (BldA) [Mass fraction] 100 % Mone Juan [facility] 08-04-2022 17:12-0500 Systolic blood pressure 130 mm[Hg] Mone Juan [facility] 08-04-2022 16:30-0500 Diastolic blood pressure 96 mm[Hg] Mone Juan [facility] 08-04-2022 16:30-0500 Heart rate 74 /min Mone Juan [facility] 08-04-2022 16:30-0500 Mean blood pressure 109 mm[Hg] Mone Juan [facility] 08-04-2022 16:30-0500 Respiratory rate 16 /min Mone Juan [facility] 08-04-2022 16:30-0500 SaO2% (BldA) [Mass fraction] 97 % Mone Martinez [facility] 08-04-2022 16:30-0500 Systolic blood pressure 134 mm[Hg] Mone Juan [facility] 08-04-2022 15:35-0500 Diastolic blood pressure 103 mm[Hg] Mone Juan [facility] 08-04-2022 15:35-0500 Heart rate 73 /min Mone Juan [facility] 08-04-2022 15:35-0500 Respiratory rate 16 /min Mone Martinez [facility] 08-04-2022 15:35-0500 SaO2% (BldA) [Mass fraction] 97 % Mone Martinez [facility] 08-04-2022 15:35-0500 Systolic blood pressure 138 mm[Hg] Mone Martinez [facility] 08-04-2022 13:08-0500 Body temperature 97.88 [degF] Mone Martinez [facility] 08-04-2022 13:08-0500 Heart rate 80 /min Mone Martinez [facility] 03-29-2022 13:04-0400 Blood Pressure Location [facility] 03-29-2022 13:04-0400 Body temperature 96.98 [degF] [facility] 03-29-2022 13:04-0400 Diastolic blood pressure 73 mm[Hg] [facility] 03-29-2022 13:04-0400 Heart rate 72 /min [facility] 03-29-2022 13:04-0400 SaO2% (BldA) [Mass fraction] 95 % [facility] 03-29-2022 13:04-0400 Systolic blood pressure 132 mm[Hg] [facility] 03-09-2022 00:59-0400 Body temperature 98.6 [degF] Jose Miguel Sylvester [facility] 03-08-2022 23:56-0400 Body temperature 100.58 [degF] Jose Miguel Sylvester [facility] 03-08-2022 23:56-0400 Diastolic blood pressure 74 mm[Hg] Jose Miguel Sylvester [facility] 03-08-2022 23:56-0400 Heart rate 95 /min Jose Miguel Sylvester [facility] 03-08-2022 23:56-0400 Mean blood pressure 98 mm[Hg] Jose Miguel Sylvester [facility] 03-08-2022 23:56-0400 SaO2% (BldA) [Mass fraction] 90 % Jose Miguel Sylvester [facility] 03-08-2022 23:56-0400 Systolic blood pressure 146 mm[Hg] Jose Miguel Sylvester [facility] 03-08-2022 22:56-0400 Body temperature 97.7 [degF] Jose Miguel Sylvester [facility] 03-08-2022 22:56-0400 Diastolic blood pressure 77 mm[Hg] Jose Miguel Phan [facility] 03-08-2022 22:56-0400 Heart rate 92 /min Jose Miguel Phan [facility] 03-08-2022 22:56-0400 Respiratory rate 15 /min Jose Miguel Phan [facility] 03-08-2022 22:56-0400 SaO2% (BldA) [Mass fraction] 94 % Jose Miguel Phan [facility] 03-08-2022 22:56-0400 Systolic blood pressure 132 mm[Hg] Jose Miguel Phan [facility] 01-11-2022 12:33-0400 Blood Pressure Location [facility] 01-11-2022 12:33-0400 Body temperature 98.06 [degF] [facility] 01-11-2022 12:33-0400 Diastolic blood pressure 82 mm[Hg] [facility] 01-11-2022 12:33-0400 Heart rate 72 /min [facility] 01-11-2022 12:33-0400 SaO2% (BldA) [Mass fraction] 96 % [facility] 01-11-2022 12:33-0400 Systolic blood pressure 134 mm[Hg] [facility] Encounters Encounter Date Encounter Type Care Provider Facility Start: 06-02-2025 End: 06-02-2025 Bamboo jaxon Meeks MD Work Phone: [facility] Start: 06-02-2025 End: 06-02-2025 Bamboo flowsheet Perlita Meeks MD Work Phone: [facility] Start: 06-02-2025 End: 06-02-2025 ambulatory PERLITA MEEKS Not Available Start: 04-29-2025 End: 04-29-2025 Bamboo jaxon Brooke MD Work Phone: [facility] Start: 04-29-2025 End: 04-29-2025 Sandy Brooke MD Work Phone: [facility] Start: 04-29-2025 End: 04-29-2025 Office outpatient visit 25 minutes Mounika Brooke MD Work Phone: [facility] Comment on above: Grief (Primary Dx); Anxiousness; Neck pain; Type 2 diabetes mellitus with hyperglycemia, with long-term current use of insulin ([facility]); Essential (primary) hypertension ; Morbid obesity ([facility]); BMI 36.0-36.9,adult Start: 04-29-2025 End: 04-29-2025 ambulatory MOUNIKA BROOKE Not Available Start: 03-24-2025 End: 03-24-2025 Telephone encounter Mounika Brooke MD Work Phone: [facility] Comment on above: Care Coordination Start: 03-13-2025 End: 03-13-2025 Sandy Brooke MD Work Phone: [facility] Start: 03-13-2025 End: 03-13-2025 Bamboo flowsheet Mounika Brooke MD Work Phone: [...] Evaluation and management of inpatient Jigna Suarez Facility:[facility] Start: 03-05-2025 Emergency department patient visit Maria Luisa Steiner Facility:[facility] Start: 02-05-2025 End: 02-05-2025 Telephone encounter [facility] Comment on above: Care Coordination Start: 02-05-2025 [...] 36.0-36.9,adult Start: 01-22-2025 End: 01-22-2025 Refill Brittani [facility] Comment on above: Anxiousness (Primary Dx) Start: 12-26-2024 End: 12-26-2024 ambulatory Maria Luisa Steiner Facility:[facility] Start: 12-26-2024 End: 12-26-2024 Office outpatient visit 15 minutes Mounika Brooke MD Work Phone: [facility] Comment on above: Muscle cramps (Prima ry Dx); Varicose veins of both lower extremities, unspecified whether complicated; Type 2 diabetes mellitus with hyperglycemia, with long-term current use of insulin (CMS/HCC); Essential (primary) hypertension (CMS/HCC) Start: 12-25-2024 End: 12-25-2024 Office outpatient visit 25 minutes Kayla Sweeney MD Work Phone: [facility] Comment on above: Type 2 diabetes perla itus with hyperglycemia, with long-term current use of insulin (CMS/HCC) (Primary Dx); Insulin long-term use (CMS/HCC); Vitamin D deficiency; Encounter for dietary consultation; Hyperlipemia, mixed (CMS/HCC); Primary hypertension (CMS/HCC) Start: 12-24-2024 End: 12-24-2024 Bamboo flowsheet Kayla Sweeney MD Work Phone: [facility] Start: 12-24-2024 End: 12-24-2024 Bamboo flowsheet Kayla Sweeney MD Work Phone: [facility] Start: 12-22-2024 End: 12-22-2024 Emergency department patient visit Dwight Brittney Shaffer Facility:[place] Start: 12-20-2024 End: 12-21-2024 ambulatory Toni Gutierrez Facility:[facility] Start: 12-20-2024 Emergency department patient visit Nicole Myers Facility:[facility] Start: 12-20-2024 End: 12-21-2024 Observation Toni Gutierrez III [facility] Start: 12-19-2024 End: 12-19-2024 Emergency department patient visit Corky Luo Facility:[facility] Start: 12-18-2024 End: 12-18-2024 Bamboo flowsheet Mone Mcguire PT Work Phone: [facility] Start: 12-18-2024 End: 12-18-2024 Bamboo flowsheet Mone Mcguire PT Work Phone: [facility] Start: 12-18-2024 End: 12-18-2024 ambulatory Mone Carmona Maynor PT Work Phone: [facility] Comment [...] 12-02-2024 Emergency department patient visit Nicole Myers [facility] Start: 09-04-2024 End: 09-04-2024 ambulatory Taz THOMAS Facility:[facility] Start: 09-04-2024 End: 09-04-2024 Patient encounter procedure Taz THOMAS [facility] Start: 09-04-2024 End: 01-15-2025 Office outpatient visit 25 minutes Kayla Sweeney MD Work Phone: [facility] Comment on above: Type 2 diabetes perla itus with hyperglycemia, with long-term current use of insulin ([facility]) (Primary Dx); Insulin long-term use (CMS/[facility]); Vitamin D deficiency; Encounter for dietary consultation; Hyperlipemia, mixed ([facility]); Primary hypertension ([facility]) Start: 09-04-2024 End: 09-04-2024 Bamboo flowskavon Sweeney MD Work Phone: [facility] Start: 09-04-2024 End: 09-04-2024 Bamkarano jaxon Sweeney MD Work Phone: [facility] Start: 09-04-2024 End: 09-04-2024 ambulatory AHMAD F GERALDINE Not Available Start: 08-06-2024 End: 08-06-2024 Telephone encounter Mounika Brooke MD Work Phone: [facility] Comment on above: Referral Start: 07-22-2024 End: 07-22-2024 ambulatory PERLITA MEEKS Not Available Start: 07-22-2024 End: 07-22-2024 Follow-up encounter Perlita Meeks MD Work Phone: [facility] Comment on above: Follow-up Start: 07-22-2024 End: 07-22-2024 Bamboo flowsheet Perlita Meeks MD Work Phone: [facility] Start: 07-22-2024 End: 07-22-2024 Bamboo flowsheet Perlita Meeks MD Work Phone: [facility] Start: 07-15-2024 End: 07-15-2024 ambulatory AHMAD F GERALDINE Not Available Start: 07-15-2024 End: 07-15-2024 Office outpatient visit 25 minutes Kayla Sweeney MD Work Phone: [facility] Comment on above: Type 2 [...] adult (CMS/HCC) Start: 07-11-2024 End: 07-11-2024 Bamboo jaxon Brooke MD Work Phone: [facility] Start: 07-11-2024 End: 07-11-2024 Bamkarano jaxon Brooke MD Work Phone: [facility] Start: 07-11-2024 End: 07-11-2024 Office outpatient visit 25 minutes Mounika Brooke MD Work Phone: [facility] Comment on above: Acute pain of right shoulder (Primary Dx); Chronic hypoxemic respiratory failure (CMS/[facility]); Hypertension, unspecified type ([facility]); BMI 40.0-44.9, adult ([facility]); Morbid obesity ([facility]) Start: 07-11-2024 End: 07-11-2024 ambulatory MOUNIKA BROOEK Not Available Start: 07-09-2024 End: 07-09-2024 Emergency department patient visit Nicole Myers [facility] Start: 07-03-2024 End: 07-03-2024 Bamboo jaxon Brooke MD Work Phone: [facility] Start: 07-03-2024 End: 07-03-2024 Bamkarano jaxon Brooke MD Work Phone: [facility] Start: 07-03-2024 End: 07-03-2024 Office outpatient visit 25 minutes Mounika Brooke MD Work Phone: [facility] Comment on above: Difficulty walking ( Primary Dx); Acute on chronic respiratory failure with hypoxia and hypercapnia ([facility]); Hypertension, unspecified type ([facility]); Type 2 diabetes mellitus with hyperglycemia, with long-term current use of insulin ([facility]); Morbid obesity ([facility]); BMI 40.0-44.9, adult ([facility]) Start: 07-03-2024 End: 07-03-2024 ambulatory MOUNIKA BROOKE Not Available Start: 06-24-2024 End: 06-24-2024 Telephone encounter Jennifer ROWAN Work Phone: [facility] Start: 06-23-2024 End: 06-23-2024 Emergency department patient visit Alejandro Reddygris [facility] Start: 06-21-2024 End: 06-21-2024 ambulatory Jennifer SHORT Facility:[facility] Start: 06-21-2024 End: 06-21-2024 Patient encounter procedure Jennifer SHORT [facility] Start: 06-21-2024 End: 06-21-2024 Bamboo flowsheet Jennifer Short PA Work Phone: [facility] Start: 06-21-2024 End: 06-21-2024 Bamboo flowsheet Jennifer Short PA Work Phone: [facility] Start: 06-21-2024 End: 06-21-2024 Office outpatient visit 25 minutes Jennifer Short PA Work Phone: [facility] Comment on above: Type 2 diabetes perla itus with hyperglycemia, with long-term current use of insulin ([facility]) (Primary Dx); Chronic cough; Chest wall pain; [...] [facility] Comment on above: Retinal Injection Start: 04-29-2024 End: 04-29-2024 Sandy Brooke MD Work Phone: [facility] Start: 04-29-2024 End: 04-29-2024 Sandy Brooke MD Work Phone: [facility] Start: 04-29-2024 End: 04-29-2024 Patient encounter procedure Mounika Brooke MD Work Phone: [facility] Comment on above: Encounter for Medica re annual wellness exam (Primary Dx); Type 2 diabetes mellitus with hyperglycemia, without long-term current use of insulin ([facility]); RLS (restless legs syndrome); Chronic hypoxemic respiratory failure ([facility]/HCC); Stage 3b chronic kidney disease (HCC) ([facility]/HCC); Oxygen dependent; Morbid obesity ([facility]/HCC); BMI 40.0-44.9, adult ([facility]/HCC); Other diabetic neurological complication associated with type 2 diabetes mellitus ([facility]/HCC); TC (obstructive sleep apnea); Restless leg syndrome; Acute on chronic respiratory failure with hypoxia and hypercapnia ([facility]/HCC); Obesity hypoventilation syndrome ([facility]/HCC); Hypertension, unspecified type ([facility]/HCC); Varicose veins of both lower extremities, unspecified whether complicated; Gastroesophageal reflux disease, unspecified whether esophagitis present; 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 ([facility]/HCC); Mixed hyperlipidemia (CMS/HCC); Long-term insulin use ([facility]/HCC) Start: 04-29-2024 End: 04-30-2024 Telephone encounter Mounika Brooke MD Work Phone: [facility] Comment on above: Care Coordination Start: 04-23-2024 End: 04-23-2024 Bamboo flowsheet Perlita Meeks MD Work Phone: [facility] Start: 04-23-2024 End: 04-23-2024 Bamboo flowsheet Perlita Meeks MD Work Phone: [facility] Start: 04-23-2024 End: 04-23-2024 Clinical Support Prelita Meeks MD Work Phone: [facility] [...] edema associated with type 1 diabetes mellitus ([facility]/HCC) Start: 04-15-2024 End: 04-15-2024 Bamboo flowsheet Perlita Meeks MD Work Phone: [facility] Start: 04-15-2024 End: 04-15-2024 Bamboo flowsheet Perlita Meeks MD Work Phone: [facility] Start: 03-11-2024 End: 03-11-2024 ambulatory Taz THOMAS Facility:[facility] Start: 03-11-2024 End: 03-11-2024 Patient encounter procedure Taz THOMAS [facility] Start: 03-06-2024 End: 03-06-2024 ambulatory Sukh R Dolce Facility:[facility] Start: 03-06-2024 End: 03-06-2024 Patient encounter procedure Sukh R Dolce [facility] Start: 02-28-2024 End: 02-28-2024 ambulatory Sukh R Dolce Facility:[facility] Start: 02-28-2024 End: 02-28-2024 Patient encounter procedure Sukh R Dolce [facility] Start: 02-28-2024 End: 02-28-2024 ambulatory Taz THOMAS Facility:[facility] Start: 02-28-2024 End: 02-28-2024 Patient encounter procedure Taz THOMAS [facility] Start: 02-15-2024 End: 02-15-2024 ambulatory Shannon J Galea Facility:[facility] Start: 02-15-2024 End: 02-15-2024 Patient encounter procedure Shannon Nunez Galea [facility] Start: 02-14-2024 End: 02-14-2024 ambulatory Taz THOMAS Facility:[facility] Start: 02-14-2024 End: 02-14-2024 Patient encounter procedure Taz THOMAS [facility] Start: 02-09-2024 End: 02-09-2024 ambulatory Gisselle X Orzech Facility:[facility] Start: 02-09-2024 End: 02-09-2024 Patient encounter procedure Gisselle X Orzech [facility] Start: 02-05-2024 End: 02-05-2024 ambulatory Taz THOMAS Facility:[facility] Start: 02-05-2024 End: 02-05-2024 Patient encounter procedure Taz THOMAS [facility] Start: 01-31-2024 End: 01-31-2024 ambulatory Sukh Zarina Harrington Facility:[facility] Start: 01-31-2024 End: 01-31-2024 Patient encounter procedure Sukh Zarina Harrington [facility] Start: 01-23-2024 End: 01-23-2024 ambulatory Smooth Harrington Facility:[facility] Start: 01-23-2024 End: 01-23-2024 Patient encounter procedure Smooth Annbert [facility] Start: 01-17-2024 End: 01-18-2024 Pre-admission assessment Smooth Elizondo Juany [facility] Start: 01-15-2024 End: 01-15-2024 Emergency department patient visit Nicole Myers [facility] Start: 01-12-2024 End: 01-12-2024 ambulatory LIBERTY PATRICK Facility:[facility] Start: 01-12-2024 End: 01-12-2024 Patient encounter procedure LIBERTY PATRICK [facility] Start: 01-02-2024 End: 01-02-2024 ambulatory Smooth Harrington Facility:[facility] Start: 01-02-2024 End: 01-02-2024 Patient encounter procedure Smooth Harrington [facility] Start: 12-26-2023 End: 12-26-2023 ambulatory Smooth Harrington Facility:[facility] Start: 12-26-2023 End: 12-26-2023 Patient encounter procedure Smooth Harrington [facility] Start: 12-19-2023 End: 12-19-2023 ambulatory Smooth Harrington Facility:[facility] Start: 12-19-2023 End: 12-19-2023 Patient encounter procedure Smooth Harrington [facility] Start: 12-15-2023 End: 12-15-2023 ambulatory Taz THOMAS Facility:[facility] Start: 12-15-2023 End: 12-15-2023 Patient encounter procedure Taz THMOAS [facility] Start: 12-12-2023 End: 12-12-2023 ambulatory Smooth Harrington Facility:[facility] Start: 12-12-2023 End: 12-12-2023 Patient encounter procedure Smooth Harrington [facility] Start: 11-23-2023 Patient encounter procedure Esau Truong TRACTOR OPERATOR [employer]AS[employer]EVELING.LEARNING AND DEVELOPMENT INTERN Work Phone: [facility] Start: 11-23-2023 Progress Note Esau Truong TRACTOR OPERATOR [employer]AS[employer]EVELING.LEARNING AND DEVELOPMENT INTERN Work Phone: [facility] Start: 11-20-2023 End: 11-20-2023 Patient encounter procedure Taz THOMAS [facility] Start: 11-20-2023 Progress Note Alvaro Herrera Work Phone: [employer] Start: 11-20-2023 End: 11-20-2023 ambulatory Taz THOMAS Facility:[facility] Start: 11-12-2023 Non-patient / Non-visit MD Jermaine Brooke Work Phone: [facility] Physician [facility] Neph[facility] Work Phone: Start: 11-11-2023 Non-patient / Non-visit MD Jermaine Brooke Work Phone: [facility] Physician [facility] Med OutPt Work Phone: Start: 11-11-2023 End: 11-17-2023 Evaluation and management of inpatient MD Mounika Brooke Work Phone: [facility] [place] [facility] Work Phone: Start: 11-11-2023 End: 11-11-2023 Emergency department patient visit Alejandro Silva [facility] Start: 11-01-2023 End: 11-01-2023 ambulatory Taz THOMAS Facility:[facility] Start: 11-01-2023 End: 11-01-2023 Patient encounter procedure Taz THOMAS [facility] Start: 10-31-2023 Telephone encounter Mounika christianson MD Work Phone: NOC Comment on above: Follow Up Phone Call (Post Discharge F/U - attempt made. No answer.) Start: 10-30-2023 End: 10-30-2023 Emergency department patient visit Staci Beck [facility] Start: 10-23-2023 End: 10-28-2023 Evaluation and management of inpatient PIPPA DONAHUE Facility:[facility] Start: 10-18-2023 End: 10-18-2023 ambulatory Taz THOMAS Facility:[facility] Start: 10-18-2023 End: 10-18-2023 Patient encounter procedure Taz THOMAS [facility] Start: 10-15-2023 End: 10-15-2023 Emergency department patient visit Mone Martinez [facility] Start: 10-13-2023 End: 10-13-2023 ambulatory MD Mounika Brooke Work Phone: [facility] Work Phone: Start: 10-13-2023 End: 10-13-2023 Patient encounter procedure MD Mounika Brooke Work Phone: [facility] [place] Work Phone: Start: 10-09-2023 Non-patient / Non-visit MD Jermaine Brooke Work Phone: [facility] Nephrology Work Phone: Start: 10-08-2023 Non-patient / Non-visit MD Jermaine Brooke Work Phone: [facility] Nephrology Work Phone: Start: 10-07-2023 Non-patient / Non-visit MD Jermaine Brooke Work Phone: [facility] Work Phone: Start: 10-06-2023 End: 10-12-2023 Evaluation and management of inpatient MD Mounika Brooke Work Phone: [facility] [place] [facility] Surg Work Phone: Start: 10-05-2023 End: 10-05-2023 ambulatory Gisselle X Orzech Facility:[facility] Start: 10-05-2023 End: 10-05-2023 Patient encounter procedure Gisselle X Orzech [facility] Start: 10-04-2023 End: 10-04-2023 ambulatory Sukh R Dolce Facility:[facility] Start: 10-04-2023 End: 10-04-2023 Patient encounter procedure Sukh R Dolce [facility] Start: 10-03-2023 ambulatory Smooth Harrington Facility:[facility] Start: 10-02-2023 End: 12-31-2023 ambulatory Nicole Thompson Facility:[facility] Start: 10-02-2023 End: 12-31-2023 Recurring Nicole Thompson [facility] Start: 09-26-2023 End: 09-26-2023 ambulatory Gisselle X Orzech Facility:[facility] Start: 09-25-2023 Bamboo flowsheet Mounika christiansen MD Work Phone: [facility] Start: 09-25-2023 Bamboo flowsheet Mounika christiansen MD Work Phone: [facility] Start: 09-24-2023 End: 09-24-2023 Emergency department patient visit Jose Miguel Phan [facility] Start: 09-21-2023 Chart abstracting Mounika christianson MD Work Phone: [facility] Start: 09-18-2023 End: 09-12-2023 Pre-admission assessment Smooth Harrington [facility] Start: 09-17-2023 End: 09-17-2023 Emergency department patient visit [facility] Start: 09-12-2023 End: 09-16-2023 Evaluation and management of inpatient XXXX [facility] Cardio Facility:[facility] Start: 09-05-2023 End: 09-05-2023 ambulatory Smooth Harrington Facility:[facility] Start: 09-05-2023 End: 09-05-2023 Patient encounter procedure Smooth Elizondo Juany [facility] Start: 08-30-2023 End: 08-30-2023 Patient encounter procedure Sukh Zarina Harrington [facility] Start: 08-24-2023 End: 08-24-2023 Patient encounter procedure Migue [facility]OU[facility] Start: 08-16-2023 End: 08-16-2023 Patient encounter procedure Sukh Zarina Harrington [facility] Start: 08-06-2023 End: 08-06-2023 Emergency department patient visit [facility] Start: 08-02-2023 End: 08-02-2023 Patient encounter procedure Sukh Harrington [facility] Start: 07-19-2023 End: 07-19-2023 Patient encounter procedure Sukh Harrington [facility] Start: 06-28-2023 End: 06-28-2023 Patient encounter procedure Sukh Harrington [facility] Start: 06-26-2023 End: 06-26-2023 Patient encounter procedure [facility]igue [facility] Start: 06-19-2023 End: 06-21-2023 Evaluation and management of inpatient DO Reid Mendy Work Phone: [facility] [place] [facility] Surg Work Phone: Start: 06-11-2023 End: 06-15-2023 Evaluation and management of inpatient Alaa HALEIGH [facility] Start: 06-07-2023 End: 06-07-2023 Patient encounter procedure Sukh Harrington [facility] Start: 05-24-2023 End: 05-24-2023 Off-Site Migue [facility] Start: 05-22-2023 End: 05-22-2023 Lab Drop off Migue STROUD [facility] Start: 05-22-2023 End: 05-22-2023 Patient encounter procedure [facility]igue [facility] Start: 05-08-2023 End: 05-08-2023 Patient encounter procedure Bashar X W[place]unsee [facility] Start: 05-02-2023 End: 05-03-2023 Pre-admission assessment Sukh Harrington [facility] Start: 05-01-2023 End: 05-01-2023 Patient encounter procedure Sukh Harrington [facility] Start: 04-26-2023 End: 04-26-2023 Patient encounter procedure Sukh Harrington [facility] Start: 04-25-2023 End: 04-25-2023 Patient encounter procedure Smooth Harrington [facility] Start: 04-19-2023 End: 04-19-2023 Patient encounter procedure Sukh Harrington [facility] Start: 04-03-2023 End: 04-03-2023 Patient encounter procedure Migue [facility] Start: 12-26-2022 End: 12-26-2022 Patient encounter procedure [facility]igue [facility] Start: 12-02-2022 End: 12-02-2022 Patient encounter procedure [facility]igue [facility] Start: 09-21-2022 End: 10-18-2022 Off-Site Migue [facility] Start: 09-13-2022 End: 09-13-2022 Patient encounter procedure [facility]igue [facility] Start: 08-21-2022 End: 09-20-2022 Off-Site Migue [facility] Start: 08-04-2022 End: 08-04-2022 Emergency department patient visit Mone Martinez [facility] Start: 03-29-2022 End: 03-29-2022 Patient encounter procedure [facility]igue [facility] Start: 03-21-2022 End: 04-20-2022 Off-Site Migue [facility] Start: 03-08-2022 End: 03-09-2022 Emergency department patient visit Jose Miguel Phan [facility] Start: 01-11-2022 End: 01-11-2022 Patient encounter procedure [facility]igue [facility] Start: 12-28-2021 End: 12-28-2021 Off-Site Migue 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 Start: 03-13-2026 Urine screening for protein Diabetes: Urine Protein Screening [facility] Start: 07-22-2025 Glaucoma screening Diabetes: R etinopathy Screening [facility] Start: 06-05-2025 End: 06-05-2025 Patient encounter procedure 06/05/2025 1:10 PM EDT Office Visit [facility] Endocr[facility]ology [address] [place] [address] Kayla Sweeney MD [address] [place] [address] [facility] Start: 06-02-2025 End: 06-02-2025 Patient encounter procedure 06/02/2025 8:30 AM EDT Office Visit [facility] [address] [place] [phone] Perlita Meeks MD [address] [place], [place] [id number] Arrived [facility] Comment on above: Arrived Start: 05-01-2025 End: 05-01-2025 Patient encounter procedure 05/01/2025 8:15 AM EDT Office Visit [facility] [address] [place] [address] Perlita Meeks MD [address] [place], [place] [id number] [facility] Start: 04-29-2025 Medicare Annual Well ness (AWV) Medicare Annual Wellness (AWV) [facility] Start: 04-29-2025 End: 04-29-2025 Patient encounter procedure 04/29/2025 11:00 AM EDT Office Visit [facility] [address] [place] [address] Mounika Brooke MD [address] [place] [address] Arrived [facility] Comment on above: Arrived Start: 04-23-2025 Glaucoma screening Diabetes: R etinopathy Screening [facility] Start: 04-21-2025 Influenza vaccination Influenza Vacc ine (#1) [facility] Start: 04-15-2025 Glaucoma screening Diabetes: R etinopathy Screening [facility] Start: 03-13-2025 End: 03-13-2025 Patient encounter procedure 03/13/2025 12:20 PM EDT Office Visit [facility] [address] [place] [address] Mounika Brooke MD [address] [place] [address] Arrived [facility] Comment on above: Arrived Start: 03-11-2025 Urine screening for protein Diabetes: Urine Protein Screening [facility] Start: 02-05-2025 End: 02-05-2025 Patient encounter procedure 02/05/2025 12:20 PM EDT Office Visit [facility] [address] [place] [address] Mounika Brooke MD [address] [place] [address] [facility] Start: 12-31-2024 End: 12-31-2024 Patient encounter procedure 12/31/2024 2:20 PM EDT Office Visit [facility] [address] [place] [address] Kayla Sweeney MD [address] [place] [address] [facility] Start: 12-26-2024 End: 12-26-2024 Patient encounter procedure 12/26/2024 3:20 PM EDT Office Visit [facility] [address] [place] [phone] Mounika Brooke MD [address] [place] [address] [facility] Start: 12-26-2024 End: 12-26-2025 CBC W Auto Differential panel - Blood CBC and differential Lab Routine Muscle cramps Expected: 12/26/2024 (Approximate), Expires: 12/26/2025 [facility] Work Phone: Comment on above: Expected: 12/26/2024 (Approximate), Expires: 12/26/2025 Start: 12-26-2024 End: 12-26-2025 Comprehensive metabolic 2000 panel - Serum or Plasma Comprehensive metabolic panel Lab Routine Muscle cramps Expected: 12/26/2024 (Approximate), Expires: 12/26/2025 [facility] Comment on above: Expected: 12/26/2024 (Approximate), Expires: 12/26/2025 Start: 12-26-2024 End: 12-26-2025 Magnesium [Mass/volume] in Serum or Plasma Magnesium Lab Routine Muscle cramps Expected: 12/26/2024 (Approximate), Expires: 12/26/2025 [facility] Comment on above: Expected: 12/26/2024 (Approximate), Expires: 12/26/2025 Start: 12-04-2024 End: 12-04-2024 Patient encounter procedure 12/04/2024 2:40 PM EDT Office Visit [facility] [address] [place] [address] Kayla Sweeney MD [address] [place] [address] [facility] Start: 12-03-2024 Hemoglobin A1c measurement Diabetes: Hemoglobin A1C [facility] Start: 11-21-2024 End: 11-21-2024 Patient encounter procedure 11/21/2024 1:30 PM EDT Office Visit [facility] [address] [address] [place] [id number] Perlita Meeks MD [address] [place] [address] [facility] Start: 10-27-2024 Complete blood count Hemoglobin/Martinez tocrit [facility] Start: 10-27-2024 Creatinine measurement Serum Creatin ine [facility] Start: 10-24-2024 Hepatitis B surface antibody level LDL Cholesterol [facility] Start: 09-21-2024 Hemoglobin A1c measurement Diabetes: Hemoglobin A1C [facility] Start: 09-04-2024 End: 09-04-2024 Patient encounter procedure [facility] Comment on above: Type 2 diabetes perla itus with hyperglycemia, with long-term current use of insulin ([facility]) Start: 09-04-2024 End: 09-04-2025 25-hydroxyvitamin D3 [Mass/volume] in Serum or Plasma Vitamin D 25 hydroxy Total Lab Routine Type 2 diabetes mellitus with hyperglycemia, with long-term current use of insulin ([facility]) Expected: 09/04/2024 (Approximate), Expires: 09/04/2025 [facility] Comment on above: Expected: 09/04/2024 (Approximate), Expires: 09/04/2025 Start: 09-04-2024 End: 09-04-2025 C-peptide C-peptide Lab Routine Type 2 diabetes mellitus with hyperglycemia, with long-term current use of insulin ([facility]) Expected: 09/04/2024 (Approximate), Expires: 09/04/2025 [facility] Work Phone: Comment on above: Expected: 09/04/2024 (Approximate), Expires: 09/04/2025 Start: 09-04-2024 End: 09-04-2025 Lipid 1996 panel - Serum or Plasma Lipid panel Lab Routine Type 2 diabetes mellitus with hyperglycemia, with long-term current use of insulin ([facility]) Expected: 09/04/2024 (Approximate), Expires: 09/04/2025 [facility] Comment on above: Expected: 09/04/2024 (Approximate), Expires: 09/04/2025 Start: 09-04-2024 End: 09-04-2025 Microalbumin/Creatinine panel in random Urine Microalbumin / creatinine urine ratio Lab Routine Type 2 diabetes mellitus with hyperglycemia, with long-term current use of insulin ([facility]) Expected: 09/04/2024 (Approximate), Expires: 09/04/2025 [facility] Comment on above: Expected: 09/04/2024 (Approximate), Expires: 09/04/2025 Start: 09-04-2024 End: 09-04-2025 Renal function panel Renal function panel Lab Routine Type 2 diabetes mellitus with hyperglycemia, with long-term current use of insulin ([facility]) Expected: 09/04/2024 (Approximate), Expires: 09/04/2025 [facility] Comment on above: Expected: 09/04/2024 (Approximate), Expires: 09/04/2025 Start: 08-09-2024 Urine screening for protein Diabetes: Urine Protein Screening [facility] Start: 07-22-2024 End: 07-22-2024 Clinical Support 07/22/2024 2:15 PM EST Clinical [facility] [address] [place] [phone] Perlita Meeks MD [address] [place] [address] [facility] Start: 07-15-2024 End: 07-15-2024 Chart abstracting 07/15/2024 Abstract [facility] [address] [place] [phone] Kayla Sweeney MD [address] [place] [address] [facility] Start: 07-15-2024 End: 07-15-2024 Patient encounter procedure 07/15/2024 1:40 PM EST Office Visit [facility] [address] [place] [address] Kayla Sweeney MD [address] [place] [address] [facility] Start: 07-11-2024 End: 07-11-2024 Clinical Support [facility] Comment on above: Arrived Start: 06-27-2024 End: 06-27-2024 Clinical Support 06/27/2024 2:15 PM EST Clinical Support [facility] [address] [place] [address] Perlita Meeks MD [address] [place] [address] [facility] Start: 06-21-2024 End: 06-21-2025 XR Chest 2 Views XR chest 2 views Imaging Routine Chronic cough Chest wall pain Expected: 06/21/2024, Expires: 06/21/2025 [facility] Work Phone: Comment on above: Expected: 06/21/2024 , Expires: 06/21/2025 Start: 06-21-2024 End: 06-21-2024 Patient encounter procedure 06/21/2024 1:30 PM EDT Office Visit [facility] [address] [place] [phone] Jennifer Short, PA [address] [place] [address] Arrived [facility] Comment on above: Arrived Start: 05-23-2024 End: 05-23-2024 Clinical Support 05/23/2024 10:15 AM EDT Clinical Support [facility] [address] [place] [address] Perlita Meeks MD [address] [place] [address] [facility] Start: 05-22-2024 End: 05-22-2024 Clinical Support 05/22/2024 2:00 PM EDT Clinical Support [facility] [address] [place] [address] Perlita Meeks MD [address] [place] [address] Arrived [facility] Comment on above: Arrived Start: 04-29-2024 End: 04-29-2024 Patient encounter procedure 04/29/2024 2:00 PM EDT Office Visit [facility] [address] [place] [phone] Mounika Brooke MD [address] [place] [address] Arrived [facility] Comment on above: Arrived Start: 04-23-2024 End: 04-23-2024 Clinical Support 04/23/2024 10:45 AM EDT Clinical Support [facility] [address] [place] [phone] Perlita Meeks MD [address] [place] [address] Arrived [facility] Comment on above: Arrived Start: 04-21-2024 Influenza vaccination [facility] Start: 04-15-2024 End: 04-15-2024 Patient encounter procedure 04/15/2024 2:30 PM EDT Office Visit [facility] [address] [place] [address] Perlita Meeks MD [address] [place], [place] [address] Arrived [facility] Comment on above: Arrived Start: 01-24-2024 Hemoglobin A1c measurement [facility] Start: 11-17-2023 [place] Start: 11-11-2023 Hospital admission [facility] Start: 11-11-2023 [place] Start: 11-11-2023 Referral to stereotype finisher [place] Start: 10-12-2023 [place] Start: 10-08-2023 Referral to stereotype finisher [place] Start: 10-07-2023 Hospital admission [facility] Start: 10-07-2023 [place] Start: 10-06-2023 Plain chest X-ray XR chest 1V portab [facility] Start: 10-06-2023 XR Chest Single view [facility] Start: 10-06-2023 Bacteria identified in Blood by Culture [place] Start: 09-25-2023 End: 09-25-2023 Patient encounter procedure [facility] Comment on above: Arrived Start: 08-21-2023 Behavioral Health Screening Behavioral Health Screening [facility] Start: 08-21-2023 Depression Assessment Depression Ass essment [facility] Start: 06-23-2023 Blood chemistry [facility] Start: 06-23-2023 [place] Start: 06-22-2023 Blood chemistry [facility] Start: 06-22-2023 [place] Start: 06-21-2023 Blood chemistry [facility] Start: 06-21-2023 End: 06-21-2023 [place] Start: 06-20-2023 Consultation [place] Start: 06-20-2023 Blood chemistry [facility] Start: 06-20-2023 [place] Start: 06-19-2023 Administration of prophylactic treatment [place] Start: 06-19-2023 Blood chemistry [facility] Start: 06-19-2023 [place] Start: 06-19-2023 Hospital admission [facility] Start: 06-19-2023 [place] Start: 06-18-2023 Plain chest X-ray XR chest 1V portab le [place] Start: 06-18-2023 XR Chest Single view [facility] Start: 04-21-2023 Covid-19 Vaccine ( season) Covid-19 Vaccine ( season) [facility] Start: 08-07-2019 Pneumococcal vaccination Pneum ococcal Vaccine (2 of 2 - PCV) [facility] Start: 08-07-2019 Pneumococcal Vaccine : 65+ Years (2 of 2 - PCV) Pneumococcal Vaccine: 65+ Years (2 of 2 - PCV) [facility] Start: 2019 RSV Vaccine (1 - 1-d ose 60+ series) RSV Vaccine (1 - 1-dose 60+ series) [facility] Start: 2014 Prostate specific antigen measurement Prostate Cancer Screening Discussion [facility] Start: 2009 Shingrix Vaccine (1 of 2) Shingrix Vaccine (1 of 2) [facility] Start: 01-08-2004 Screening for malign ant neoplasm of colon [facility] Start: 1978 Urine microalbumin profile DTaP,Tdap,Td Vaccine (1 - Tdap) [facility] Start: 1977 Annual PCP Team [employer] loida Disease Visit Annual PCP Team Chronic Disease Visit [facility] Start: 1977 BP Controlled (<130/80) BP Con trolled (<130/80) [facility] Start: 1977 Hepatitis C screening Hepatitis C Sc haily [facility] Start: 1977 HIV screening HIV Screening [facility] Start: 1969 Diabetic foot examination Diabetic Foot Exam [facility] Start: 1969 Glaucoma screening [facility] Start: 1969 Hepatitis B screening Urine Albumin:Creatinine Ratio [facility] Start: 1959 Hemoglobin A1c measurement Diabetes: Hemoglobin A1C [facility] Start: 1959 Medicare Annual Well ness (AWV) Medicare Annual Wellness (AWV) [facility] Start: 1959 Screening for malign ant neoplasm of colon [facility] Anion gap measurement [facility] Basophils [#/volume] in Blood by Automated count [place] Basophils/100 leukoc ytes in Blood by Automated count [place] Eosinophils [#/volum e] in Blood [place] Eosinophils/100 leukocytes in Blood by Automated count [place] Erythrocyte distribu tion width [Ratio] by Automated count [place] Erythrocytes [#/volu me] in Blood [place] Hematocrit [Volume Fraction] of Blood [place] Hemoglobin [Mass/vol ume] in Blood [place] Leukocytes [#/volume ] corrected for nucleated erythrocytes in Blood by Automated coun [place] Leukocytes [#/volume ] in Blood [place] Lymphocytes [#/volum e] in Blood by Automated count [place] Lymphocytes/100 leukocytes in Blood by Automated count [place] MCH [Entitic mass] b y Automated count [place] MCHC [Mass/volume] b y Automated count [place] MCV [Entitic volume] by Automated count [place] Monocytes [#/volume] in Blood by Automated count [place] Monocytes/100 leukoc ytes in Blood by Automated count [place] Neutrophils [#/volum e] in Blood by Automated count [place] Neutrophils/100 leukocytes in Blood by Automated count [place] Nucleated erythrocyt es [Presence] in Blood by Automated count [place] Optical coherence tomography study report OCT, Retina - OU - Both Eyes Ophthalmology Routine 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, unspecified proliferative retinopathy type (HCC) Ordered: 06/02/2025 [facility] Work Phone: Comment on above: Ordered: 06/02/2025 Patient Education [facility] Work Phone: Patient referral [facility] Work Phone: Platelet mean volume [Entitic volume] in Blood by Automated count [place] Platelets [#/volume] in Blood [facility] Immunizations Immunization Date Immunization Notes Care Provider Fa cility 12-04-2024 Pneumococcal Conjuga te PCV 20 Mounika Brooke MD Work Phone: [facility] 12-04-2024 Seasonal, trivalent, recombinant, injectable influenza vaccine, preservative free Mounika Brooke MD Work Phone: [facility] 12-04-2024 influenza virus vacc ine, unspecified formulation Mounika Brooke MD Work Phone: [facility] 11-24-2023 tuberculin skin test ; purified protein derivative solution, intradermal Mounika Brooke MD Work Phone: [facility] 11-17-2023 tuberculin skin test ; purified protein derivative solution, intradermal Mounika Brooke MD Work Phone: [facility] 05-22-2023 influenza, injectabl e, quadrivalent, preservative free [facility]igue [facility] 05-22-2023 influenza virus vacc ine, unspecified formulation Perlita Meeks MD Work Phone: [facility] 06-17-2022 COVID-19, mRNA, LNP- S, bivalent booster, PF, 30 mcg/0.[address] [facility] 06-17-2022 influenza, injectabl e, quadrivalent, preservative free Mone Martinez [facility] 06-17-2022 SARS-CoV-2, Unspecified Zahra Brooke MD Work Phone: [facility] 07-27-2021 COVID-19, mRNA, LNP- S, PF, 100 mcg or 50 mcg dose [address] [facility] 07-20-2021 influenza, injectabl e, quadrivalent, preservative free [facility] 12-03-2020 SARS-CoV-2 (COVID-19 ) [id number] [facility] 11-02-2020 SARS-CoV-2 (COVID-19 ) [id number] [facility] 06-04-2019 influenza, injectabl e, quadrivalent, contains preservative [facility] 08-07-2018 influenza virus vacc ine, unspecified formulation Jose Miguel Phan [facility] 08-07-2018 influenza, injectabl e, quadrivalent, contains preservative Mounika Brooke MD Work Phone: [facility] 08-07-2018 pneumococcal polysaccharide vaccine, [address] [facility] 11-24-2015 pneumococcal polysaccharide vaccine, 23 valent Jose Miguel Phan [facility] Payers Date Payer Category Payer Self-pay [id number] 2024 Medicare (Managed Care) [id number]. [id number] 2024 Private Health Insurance [id number] 2023 Medicare [id number] 2023 Unknown [employer] [id number] 2023-Present [address] [place] [phone] [id number] 2023 Medicare [id number] 2023 Medicaid [id number] 2023 Medicaid [id number] 2022 Medicare [id number]. 1.13.159.2.7 .[id number] 1959 Unknown [id number] 2.16.840.1.164705.3.579.2.7 1959 Unknown [id number] 2.16.840.1.367897.3.579.2.7 1959 Unknown [id number] 2.16.840.1.991695.3.579.2.7 1959 Unknown [id number] 2.16.840.1.996778.3.579.2.7 1959 Unknown [id number] 2.16.840.1.448996.3.579.2.7 1959 Unknown [id number] 2.16.840.1.785259.3.579.2.7 1959 Unknown [id number] 2.16.840.1.002119.3.579.2.7 1959 Unknown [id number] 2.16.840.1.988598.3.579.2.7 1959 Unknown [id number] 2.16.840.1.725611.3.579.2.7 1959 Unknown [id number] 2.16.840.1.733852.3.579.2.7 1959 Unknown [id number] 2.16.840.1.391596.3.579.2.7 1959 Unknown [id number] 2.16.840.1.577842.3.579.2.7 1959 Unknown [id number] 2.16.840.1.946710.3.579.2.7 1959 Unknown [id number] 2.16.840.1.207594.3.579.2.7 1959 Unknown [id number] 2.16.840.1.348292.3.579.2.7 1959 Unknown [id number] 2.16.840.1.979309.3.579.2.7 1959 Unknown [id number] 2.16.840.1.109099.3.579.2.7 1959 Unknown [id number] 2.16.840.1.905521.3.579.2.7 1959 Unknown [id number] 2.16.840.1.241208.3.579.2.7 1959 Unknown [id number] 2.16.840.1.908491.3.579.2.7 1959 Unknown [id number] 2.16.840.1.562849.3.579.2.7 1959 Unknown [id number] 2.16.840.1.270448.3.579.2.7 1959 Unknown [id number] 2.16.840.1.136746.3.579.2.7 1959 Unknown [id number] 2.16.840.1.327344.3.579.2.7 1959 Unknown [id number] 2.16.840.1.290899.3.579.2.7 1959 Unknown [id number] 2.16.840.1.712831.3.579.2.7 1959 Unknown [id number] 2.16.840.1.772002.3.579.2.7 1959 Unknown [id number] 2.16.840.1.451858.3.579.2.7 1959 Unknown [id number] 2.16.840.1.539831.3.579.2.7 1959 Unknown [id number] 2.16.840.1.451765.3.579.2.7 1959 Unknown [id number] 2.16.840.1.933333.3.579.2.7 1959 Unknown [id number] 2.16.840.1.331647.3.579.2.7 1959 Unknown [id number] 2.16.840.1.851622.3.579.2.7 1959 Unknown [id number] 2.16.840.1.766616.3.579.2.7 1959 Unknown [id number] 2.16.840.1.496566.3.579.2.7 1959 Unknown [id number] 2.16.840.1.023291.3.579.2.7 1959 Unknown [id number] 2.16.840.1.498851.3.579.2.7 1959 Unknown [id number] 2.16.840.1.282453.3.579.2.7 1959 Unknown [id number] 2.16.840.1.087290.3.579.2.7 1959 Unknown [id number] 2.16.840.1.233958.3.579.2.7 1959 Unknown [id number] 2.16.840.1.888657.3.579.2.7 1959 Unknown [id number] 2.16.840.1.140536.3.579.2.7 1959 Unknown [id number] 2.16.840.1.794529.3.579.2.7 27 1959 Unknown [id number] 2.16.840.1.694061.3.579.2.7 27 1959 Unknown [id number] 2.16.840.1.827538.3.579.2.7 27 1959 Unknown [id number] 2.16.840.1.383267.3.579.2.7 27 1959 Unknown [id number] 2.16.840.1.611201.3.579.2.7 27 1959 Unknown [id number] 2.16.840.1.055216.3.579.2.7 27 1959 Unknown [id number] 2.16.840.1.698042.3.579.2.7 27 1959 Unknown [id number] 2.16.840.1.686546.3.579.2.7 27 1959 Unknown [id number] 2.16.840.1.955813.3.579.2.7 27 1959 Unknown [id number] 2.16.840.1.622679.3.579.2.7 27 1959 Unknown [id number] 2.16.840.1.483520.3.579.2.7 27 1959 Unknown [id number] 2.16.840.1.541482.3.579.2.7 27 1959 Unknown [id number] 2.16.840.1.568229.3.579.2.1 259 1959 Unknown [id number] 2.16.840.1.879981.3.579.2.1 259 1959 Unknown [id number] 2.16.840.1.990548.3.579.2.1 259 1959 Unknown [id number] 2.16.840.1.151330.3.579.2.1 259 1959 Unknown [id number] 2.16.840.1.961815.3.579.2.1 259 1959 Unknown [id number] 2.16.840.1.387096.3.579.2.1 259 1959 Unknown [id number] 2.16.840.1.215030.3.579.2.1 259 1959 Unknown [id number] 2.16.840.1.996894.3.579.2.1 259 1959 Unknown [id number] 2.16.840.1.147041.3.579.2.1 259 1959 Unknown [id number] 2.16.840.1.399927.3.579.2.1 259 1959 Unknown [id number] 2.16.840.1.403897.3.579.2.1 259 1959 Unknown [id number] 2.16.840.1.730263.3.579.2.1 259 1959 Unknown [id number] 2.16.840.1.207447.3.579.2.1 259 Medicare Medicare [id number] Unknown [id number] 2.16.840.1.509855.3.579.2.5 31 Social History Date Type Detail Facility Start: 12-28-2021 End: 06-27-2023 Tobacco smoking status Never smoked tobacco (finding) [facility] Start: 11-02-2022 Tobacco smoking status Never [facility] Start: 09-06-2023 End: 04-11-2025 Sex Assigned At Male [facility] Start: 1960 Sex Assigned At Male F [facility] Start: 06-27-2023 Tobacco use and exposure Smoke less tobacco non-user [facility] Start: 09-06-2023 End: 04-29-2025 Alcohol intake Lifetime non-drinker (finding) [facility] Start: 09-06-2023 End: 04-11-2025 History of Social function [facility] Start: 04-02-2023 Alcohol Comment caffeine 1-2 c ups per day [facility] Start: 1960 Sex Assigned At Not on file [facility] Start: 10-24-2023 Alcohol intake Current non-dr edge stripper of alcohol (finding) [facility] Sexual Orientation [facility] Start: 11-09-2018 Sex Male (finding) [facility] How hard is it for y [...] months, were you homeless or living in intermediate [including now]? No [facility] Medical Equipment Procedure Code Equipment Code Equipment Origin al Text Equipment Identifier Dates Glucometer test strips, See Instructions, 100 strip(s), 11, Test TID DX E11.40 on insulin, [facility] #[id number], Supply, 182, cm, 10/01/21 10:14:00 EST, Height/Length Dosing, 131.2, kg, 10/01/21 10:14:00 EST, Weight Dosing Start: 10-28-2021 lancets, See Instructions, 100 EA, 11, test blood sugar tid dx E11.9 on insulin, [facility] #[id number], Supply, 182, cm, 10/01/21 10:14:00 EST, Height/Length Dosing, 131.2, kg, 10/01/21 10:14:00 EST, Weight Dosing Start: 10-29-2021 Glucometer test strips, See Instructions, 100 strip(s), 11, Test TID DX E11.40 on insulin, [facility] #[id number], Supply, 182, cm, 10/01/21 10:14:00 EST, Height/Length Dosing, 131.2, kg, 10/01/21 10:14:00 EST, Weight Dosing Start: 10-28-2021 lancets, See Instructions, 100 EA, 11, test blood sugar tid dx E11.9 on insulin, [facility] #[id number], Supply, 182, cm, 10/01/21 10:14:00 EST, Height/Length Dosing, 131.2, kg, 10/01/21 10:14:00 EST, Weight Dosing Start: 10-29-2021 Glucometer test strips, See Instructions, 100 strip(s), 11, Test TID DX E11.40 on insulin, [facility] #[id number], Supply, 182, cm, 10/01/21 10:14:00 EST, Height/Length Dosing, 131.2, kg, 10/01/21 10:14:00 EST, Weight Dosing Start: 10-28-2021 lancets, See Instructions, 100 EA, 11, test blood sugar tid dx E11.9 on insulin, [facility] #[id number], Supply, 182, cm, 10/01/21 10:14:00 EST, Height/Length Dosing, 131.2, kg, 10/01/21 10:14:00 EST, Weight Dosing Start: 10-29-2021 Glucometer test strips, See Instructions, 100 strip(s), 11, Test TID DX E11.40 on insulin, [facility] #[id number], Supply, 182, cm, 10/01/21 10:14:00 EST, Height/Length Dosing, 131.2, kg, 10/01/21 10:14:00 EST, Weight Dosing Start: 10-28-2021 lancets, See Instructions, 100 EA, 11, test blood sugar tid dx E11.9 on insulin, [facility] #[id number], Supply, 182, cm, 10/01/21 10:14:00 EST, Height/Length Dosing, 131.2, kg, 10/01/21 10:14:00 EST, Weight Dosing Start: 10-29-2021 Glucometer test strips, See Instructions, 100 strip(s), 11, Test TID DX E11.40 on insulin, [facility] #[id number], Supply, 182, cm, 10/01/21 10:14:00 EST, Height/Length Dosing, 131.2, kg, 10/01/21 10:14:00 EST, Weight Dosing Start: 10-28-2021 lancets, See Instructions, 100 EA, 11, test blood sugar tid dx E11.9 on insulin, [facility] #[id number], Supply, 182, cm, 10/01/21 10:14:00 EST, Height/Length Dosing, 131.2, kg, 10/01/21 10:14:00 EST, Weight Dosing Start: 10-29-2021 Glucometer test strips, See Instructions, 100 strip(s), 11, Test TID DX E11.40 on insulin, [facility] #[id number], Supply, 182, cm, 10/01/21 10:14:00 EST, Height/Length Dosing, 131.2, kg, 10/01/21 10:14:00 EST, Weight Dosing Start: 10-28-2021 lancets, See Instructions, 100 EA, 11, test blood sugar tid dx E11.9 on insulin, [facility] #[id number], Supply, 182, cm, 10/01/21 10:14:00 EST, Height/Length Dosing, 131.2, kg, 10/01/21 10:14:00 EST, Weight Dosing Start: 10-29-2021 Glucometer test strips, See Instructions, 100 strip(s), 11, Test TID DX E11.40 on insulin, [facility] #[id number], Supply, 182, cm, 09/13/22 13:17:00 EST, Height/Length Dosing, 140.8, kg, 09/13/22 13:17:00 EST, Weight Dosing Start: 09-13-2022 Insulin Pen Need les 31g x 8 mm, See Instructions, 450 EA, 4, Use up to 4 daily, [facility] #[id number], Supply, 182, cm, 09/13/22 13:17:00 EST, Height/Length Dosing, 140.8, kg, 09/13/22 13:17:00 EST, Weight Dosing Start: 09-13-2022 lancets, See Instructions, 100 EA, 11, test blood sugar tid dx E11.9 on insulin, [facility] #[id number], Supply, 182, cm, 10/01/21 10:14:00 EST, Height/Length Dosing, 131.2, kg, 10/01/21 10:14:00 EST, Weight Dosing Start: 10-29-2021 Glucometer test strips, See Instructions, 100 strip(s), 11, Test TID DX E11.40 on insulin, [facility] #[id number], Supply, 182, cm, 09/13/22 13:17:00 EST, Height/Length Dosing, 140.8, kg, 09/13/22 13:17:00 EST, Weight Dosing Start: 09-13-2022 Insulin Pen Need les 31g x 8 mm, See Instructions, 450 EA, 4, Use up to 4 daily, [facility] #[id number], Supply, 182, cm, 09/13/22 13:17:00 EST, Height/Length Dosing, 140.8, kg, 09/13/22 13:17:00 EST, Weight Dosing Start: 09-13-2022 lancets, See Instructions, 100 EA, 11, test blood sugar tid dx E11.9 on insulin, [facility] #[id number], Supply, 182, cm, 10/01/21 10:14:00 EST, Height/Length Dosing, 131.2, kg, 10/01/21 10:14:00 EST, Weight Dosing Start: 10-29-2021 Glucometer test strips, See Instructions, 100 strip(s), 11, Test TID DX E11.40 on insulin, [facility] #[id number], Supply, 182, cm, 09/13/22 13:17:00 EST, Height/Length Dosing, 140.8, kg, 09/13/22 13:17:00 EST, Weight Dosing Start: 09-13-2022 Insulin Pen Need les 31g x 8 mm, See Instructions, 450 EA, 4, Use up to 4 daily, [facility] #[id number], Supply, 182, cm, 09/13/22 13:17:00 EST, Height/Length Dosing, 140.8, kg, 09/13/22 13:17:00 EST, Weight Dosing Start: 09-13-2022 lancets, See Instructions, 100 EA, 11, test blood sugar tid dx E11.9 on insulin, [facility] #[id number], Supply, 182, cm, 10/01/21 10:14:00 EST, Height/Length Dosing, 131.2, kg, 10/01/21 10:14:00 EST, Weight Dosing Start: 10-29-2021 Glucometer test strips, See Instructions, 100 strip(s), 11, Test TID DX E11.40 on insulin, [facility] #[id number], Supply, 182, cm, 09/13/22 13:17:00 EST, Height/Length Dosing, 140.8, kg, 09/13/22 13:17:00 EST, Weight Dosing Start: 11-03-2022 Insulin Pen Need les 31g x 8 mm, See Instructions, 450 EA, 4, Use up to 4 daily, [facility] #[id number], Supply, 182, cm, 09/13/22 13:17:00 EST, Height/Length Dosing, 140.8, kg, 09/13/22 13:17:00 EST, Weight Dosing Start: 09-13-2022 lancets, See Instructions, 100 EA, 11, test blood sugar tid dx E11.9 on insulin, [facility] #[id number], Supply, 182, cm, 09/13/22 13:17:00 EST, Height/Length Dosing, 140.8, kg, 09/13/22 13:17:00 EST, Weight Dosing Start: 11-03-2022 Glucometer test strips, See Instructions, 100 strip(s), 11, Test TID DX E11.40 on insulin, [facility] #[id number], Supply, 182, cm, 09/13/22 13:17:00 EST, Height/Length Dosing, 140.8, kg, 09/13/22 13:17:00 EST, Weight Dosing Start: 11-03-2022 Insulin Pen Need les 31g x 8 mm, See Instructions, 450 EA, 4, Use up to 4 daily, [facility] #[id number], Supply, 182, cm, 09/13/22 13:17:00 EST, Height/Length Dosing, 140.8, kg, 09/13/22 13:17:00 EST, Weight Dosing Start: 09-13-2022 lancets, See Instructions, 100 EA, 11, test blood sugar tid dx E11.9 on insulin, [facility] #[id number], Supply, 182, cm, 09/13/22 13:17:00 EST, Height/Length Dosing, 140.8, kg, 09/13/22 13:17:00 EST, Weight Dosing Start: 11-03-2022 Glucometer test strips, See Instructions, 100 strip(s), 11, Test TID DX E11.40 on insulin, [facility] #[id number], Supply, 182, cm, 09/13/22 13:17:00 EST, Height/Length Dosing, 140.8, kg, 09/13/22 13:17:00 EST, Weight Dosing Start: 11-03-2022 Insulin Pen Need les 31g x 8 mm, See Instructions, 450 EA, 4, Use up to 4 daily, [facility] #[id number], Supply, 182, cm, 09/13/22 13:17:00 EST, Height/Length Dosing, 140.8, kg, 09/13/22 13:17:00 EST, Weight Dosing Start: 09-13-2022 lancets, See Instructions, 100 EA, 11, test blood sugar tid dx E11.9 on insulin, [facility] #[id number], Supply, 182, cm, 09/13/22 13:17:00 EST, Height/Length Dosing, 140.8, kg, 09/13/22 13:17:00 EST, Weight Dosing Start: 11-03-2022 Glucometer test strips, See Instructions, 100 strip(s), 11, Test TID DX E11.40 on insulin, [facility] #[id number], Supply, 182, cm, 09/13/22 13:17:00 EST, Height/Length Dosing, 140.8, kg, 09/13/22 13:17:00 EST, Weight Dosing Start: 11-03-2022 Insulin Pen Need les 31g x 8 mm, See Instructions, 450 EA, 4, Use up to 4 daily, [facility] #[id number], Supply, 182, cm, 09/13/22 13:17:00 EST, Height/Length Dosing, 140.8, kg, 09/13/22 13:17:00 EST, Weight Dosing Start: 09-13-2022 lancets, See Instructions, 100 EA, 11, test blood sugar tid dx E11.9 on insulin, [facility] #[id number], Supply, 182, cm, 09/13/22 13:17:00 EST, Height/Length Dosing, 140.8, kg, 09/13/22 13:17:00 EST, Weight Dosing Start: 11-03-2022 Glucometer test strips, See Instructions, 100 strip(s), 11, Test TID DX E11.40 on insulin, [facility] #[id number], Supply, 182, cm, 09/13/22 13:17:00 EST, Height/Length Dosing, 140.8, kg, 09/13/22 13:17:00 EST, Weight Dosing Start: 11-03-2022 Insulin Pen Need les 31g x 8 mm, See Instructions, 450 EA, 4, Use up to 4 daily, [facility] #[id number], Supply, 182, cm, 09/13/22 13:17:00 EST, Height/Length Dosing, 140.8, kg, 09/13/22 13:17:00 EST, Weight Dosing Start: 09-13-2022 lancets, See Instructions, 100 EA, 11, test blood sugar tid dx E11.9 on insulin, [facility] #[id number], Supply, 182, cm, 09/13/22 13:17:00 EST, Height/Length Dosing, 140.8, kg, 09/13/22 13:17:00 EST, Weight Dosing Start: 11-03-2022 Glucometer test strips, See Instructions, 100 strip(s), 11, Test TID DX E11.40 on insulin, [facility] #[id number], Supply, 182, cm, 09/13/22 13:17:00 EST, Height/Length Dosing, 140.8, kg, 09/13/22 13:17:00 EST, Weight Dosing Start: 11-03-2022 Insulin Pen Need les 31g x 8 mm, See Instructions, 450 EA, 4, Use up to 4 daily, [facility] #[id number], Supply, 182, cm, 09/13/22 13:17:00 EST, Height/Length Dosing, 140.8, kg, 09/13/22 13:17:00 EST, Weight Dosing Start: 09-13-2022 lancets, See Instructions, 100 EA, 11, test blood sugar tid dx E11.9 on insulin, [facility] #[id number], Supply, 182, cm, 09/13/22 13:17:00 EST, Height/Length Dosing, 140.8, kg, 09/13/22 13:17:00 EST, Weight Dosing Start: 11-03-2022 Glucometer test strips, See Instructions, 100 strip(s), 11, Test TID DX E11.40 on insulin, [facility] #[id number], Supply, 182, cm, 09/13/22 13:17:00 EST, Height/Length Dosing, 140.8, kg, 09/13/22 13:17:00 EST, Weight Dosing Start: 11-03-2022 Insulin Pen Need les 31g x 8 mm, See Instructions, 450 EA, 4, Use up to 4 daily, [facility] #[id number], Supply, 182, cm, 09/13/22 13:17:00 EST, Height/Length Dosing, 140.8, kg, 09/13/22 13:17:00 EST, Weight Dosing Start: 09-13-2022 lancets, See Instructions, 100 EA, 11, test blood sugar tid dx E11.9 on insulin, [facility] #[id number], Supply, 182, cm, 09/13/22 13:17:00 EST, Height/Length Dosing, 140.8, kg, 09/13/22 13:17:00 EST, Weight Dosing Start: 11-03-2022 Glucometer test strips, See Instructions, 100 strip(s), 11, Test TID DX E11.40 on insulin, [facility] #[id number], Supply, 182, cm, 09/13/22 13:17:00 EST, Height/Length Dosing, 140.8, kg, 09/13/22 13:17:00 EST, Weight Dosing Start: 11-03-2022 Insulin Pen Need les 31g x 8 mm, See Instructions, 450 EA, 4, Use up to 4 daily, [facility] #[id number], Supply, 182, cm, 09/13/22 13:17:00 EST, Height/Length Dosing, 140.8, kg, 09/13/22 13:17:00 EST, Weight Dosing Start: 09-13-2022 lancets, See Instructions, 100 EA, 11, test blood sugar tid dx E11.9 on insulin, [facility] #[id number], Supply, 182, cm, 09/13/22 13:17:00 EST, Height/Length Dosing, 140.8, kg, 09/13/22 13:17:00 EST, Weight Dosing Start: 11-03-2022 Glucometer test strips, See Instructions, 100 strip(s), 11, Test TID DX E11.40 on insulin, [facility] #[id number], Supply, 182, cm, 09/13/22 13:17:00 EST, Height/Length Dosing, 140.8, kg, 09/13/22 13:17:00 EST, Weight Dosing Start: 11-03-2022 Insulin Pen Need les 31g x 8 mm, See Instructions, 450 EA, 4, Use up to 4 daily, [facility] #[id number], Supply, 182, cm, 09/13/22 13:17:00 EST, Height/Length Dosing, 140.8, kg, 09/13/22 13:17:00 EST, Weight Dosing Start: 09-13-2022 lancets, See Instructions, 100 EA, 11, test blood sugar tid dx E11.9 on insulin, [facility] #[id number], Supply, 182, cm, 09/13/22 13:17:00 EST, Height/Length Dosing, 140.8, kg, 09/13/22 13:17:00 EST, Weight Dosing Start: 11-03-2022 Glucometer test strips, See Instructions, 100 strip(s), 11, Test TID DX E11.40 on insulin, [facility] #[id number], Supply, 182, cm, 09/13/22 13:17:00 EST, Height/Length Dosing, 140.8, kg, 09/13/22 13:17:00 EST, Weight Dosing Start: 11-03-2022 Insulin Pen Need les 31g x 8 mm, See Instructions, 450 EA, 4, Use up to 4 daily, [facility] #[id number], Supply, 182, cm, 05/22/23 13:30:00 EDT, Height/Length Dosing, 139.6, kg, 05/22/23 13:30:00 EDT, Weight Dosing Start: 05-22-2023 lancets, See Instructions, 100 EA, 11, test blood sugar tid dx E11.9 on insulin, [facility] #[id number], Supply, 182, cm, 09/13/22 13:17:00 EST, Height/Length Dosing, 140.8, kg, 09/13/22 13:17:00 EST, Weight Dosing Start: 11-03-2022 Glucometer test strips, See Instructions, 100 strip(s), 11, Test TID DX E11.40 on insulin, [facility] #[id number], Supply, 182, cm, 09/13/22 13:17:00 EST, Height/Length Dosing, 140.8, kg, 09/13/22 13:17:00 EST, Weight Dosing Start: 11-03-2022 Insulin Pen Need les 31g x 8 mm, See Instructions, 450 EA, 4, Use up to 4 daily, [facility] #[id number], Supply, 182, cm, 05/22/23 13:30:00 EDT, Height/Length Dosing, 139.6, kg, 05/22/23 13:30:00 EDT, Weight Dosing Start: 05-22-2023 lancets, See Instructions, 100 EA, 11, test blood sugar tid dx E11.9 on insulin, [facility] #[id number], Supply, 182, cm, 09/13/22 13:17:00 EST, Height/Length Dosing, 140.8, kg, 09/13/22 13:17:00 EST, Weight Dosing Start: 11-03-2022 Glucometer test strips, See Instructions, 100 strip(s), 11, Test TID DX E11.40 on insulin, [facility] #[id number], Supply, 182, cm, 09/13/22 13:17:00 EST, Height/Length Dosing, 140.8, kg, 09/13/22 13:17:00 EST, Weight Dosing Start: 11-03-2022 Insulin Pen Need les 31g x 8 mm, See Instructions, 450 EA, 4, Use up to 4 daily, [facility] #[id number], Supply, 182, cm, 05/22/23 13:30:00 EDT, Height/Length Dosing, 139.6, kg, 05/22/23 13:30:00 EDT, Weight Dosing Start: 05-22-2023 lancets, See Instructions, 100 EA, 11, test blood sugar tid dx E11.9 on insulin, [facility] #[id number], Supply, 182, cm, 09/13/22 13:17:00 EST, Height/Length Dosing, 140.8, kg, 09/13/22 13:17:00 EST, Weight Dosing Start: 11-03-2022 Glucometer test strips, See Instructions, 100 strip(s), 11, Test TID DX E11.40 on insulin, [facility] #[id number], Supply, 182, cm, 09/13/22 13:17:00 EST, Height/Length Dosing, 140.8, kg, 09/13/22 13:17:00 EST, Weight Dosing Start: 11-03-2022 Insulin Pen Need les 31g x 8 mm, See Instructions, 450 EA, 4, Use up to 4 daily, [facility] #[id number], Supply, 182, cm, 05/22/23 13:30:00 EDT, Height/Length Dosing, 139.6, kg, 05/22/23 13:30:00 EDT, Weight Dosing Start: 05-22-2023 lancets, See Instructions, 100 EA, 11, test blood sugar tid dx E11.9 on insulin, [facility] #[id number], Supply, 182, cm, 09/13/22 13:17:00 EST, Height/Length Dosing, 140.8, kg, 09/13/22 13:17:00 EST, Weight Dosing Start: 11-03-2022 Glucometer test strips, See Instructions, 100 strip(s), 11, Test TID DX E11.40 on insulin, [facility] #[id number], Supply, 182, cm, 09/13/22 13:17:00 EST, Height/Length Dosing, 140.8, kg, 09/13/22 13:17:00 EST, Weight Dosing Start: 11-03-2022 Insulin Pen Need les 31g x 8 mm, See Instructions, 450 EA, 4, Use up to 4 daily, [facility] #[id number], Supply, 182, cm, 05/22/23 13:30:00 EDT, Height/Length Dosing, 139.6, kg, 05/22/23 13:30:00 EDT, Weight Dosing Start: 05-22-2023 lancets, See Instructions, 100 EA, 11, test blood sugar tid dx E11.9 on insulin, [facility] #[id number], Supply, 182, cm, 09/13/22 13:17:00 EST, Height/Length Dosing, 140.8, kg, 09/13/22 13:17:00 EST, Weight Dosing Start: 11-03-2022 Glucometer test strips, See Instructions, 100 strip(s), 11, Test TID DX E11.40 on insulin, [facility] #[id number], Supply, 182, cm, 09/13/22 13:17:00 EST, Height/Length Dosing, 140.8, kg, 09/13/22 13:17:00 EST, Weight Dosing Start: 11-03-2022 Insulin Pen Need les 31g x 8 mm, See Instructions, 450 EA, 4, Use up to 4 daily, [facility] #[id number], Supply, 182, cm, 05/22/23 13:30:00 EDT, Height/Length Dosing, 139.6, kg, 05/22/23 13:30:00 EDT, Weight Dosing Start: 05-22-2023 lancets, See Instructions, 100 EA, 11, test blood sugar tid dx E11.9 on insulin, [facility] #[id number], Supply, 182, cm, 09/13/22 13:17:00 EST, Height/Length Dosing, 140.8, kg, 09/13/22 13:17:00 EST, Weight Dosing Start: 11-03-2022 Glucometer test strips, See Instructions, 100 strip(s), 11, Test TID DX E11.40 on insulin, [facility] #[id number], Supply, 182, cm, 09/13/22 13:17:00 EST, Height/Length Dosing, 140.8, kg, 09/13/22 13:17:00 EST, Weight Dosing Start: 11-03-2022 Insulin Pen Need les 31g x 8 mm, See Instructions, 450 EA, 4, Use up to 4 daily, [facility] #[id number], Supply, 182, cm, 05/22/23 13:30:00 EDT, Height/Length Dosing, 139.6, kg, 05/22/23 13:30:00 EDT, Weight Dosing Start: 05-22-2023 lancets, See Instructions, 100 EA, 11, test blood sugar tid dx E11.9 on insulin, [facility] #[id number], Supply, 182, cm, 09/13/22 13:17:00 EST, Height/Length Dosing, 140.8, kg, 09/13/22 13:17:00 EST, Weight Dosing Start: 11-03-2022 Glucometer test strips, See Instructions, 100 strip(s), 11, Test TID DX E11.40 on insulin, [facility] #[id number], Supply, 182, cm, 09/13/22 13:17:00 EST, Height/Length Dosing, 140.8, kg, 09/13/22 13:17:00 EST, Weight Dosing Start: 11-03-2022 Insulin Pen Need les 31g x 8 mm, See Instructions, 450 EA, 4, Use up to 4 daily, [facility] #[id number], Supply, 182, cm, 05/22/23 13:30:00 EDT, Height/Length Dosing, 139.6, kg, 05/22/23 13:30:00 EDT, Weight Dosing Start: 05-22-2023 lancets, See Instructions, 100 EA, 11, test blood sugar tid dx E11.9 on insulin, [facility] #[id number], Supply, 182, cm, 09/13/22 13:17:00 EST, Height/Length Dosing, 140.8, kg, 09/13/22 13:17:00 EST, Weight Dosing Start: 11-03-2022 Glucometer test strips, See Instructions, 100 strip(s), 11, Test TID DX E11.40 on insulin, [facility] #[id number], Supply, 182, cm, 09/13/22 13:17:00 EST, Height/Length Dosing, 140.8, kg, 09/13/22 13:17:00 EST, Weight Dosing Start: 11-03-2022 Insulin Pen Need les 31g x 8 mm, See Instructions, 450 EA, 4, Use up to 4 daily, [facility] #[id number], Supply, 182, cm, 05/22/23 13:30:00 EDT, Height/Length Dosing, 139.6, kg, 05/22/23 13:30:00 EDT, Weight Dosing Start: 05-22-2023 lancets, See Instructions, 100 EA, 11, test blood sugar tid dx E11.9 on insulin, [facility] #[id number], Supply, 182, cm, 09/13/22 13:17:00 EST, Height/Length Dosing, 140.8, kg, 09/13/22 13:17:00 EST, Weight Dosing Start: 11-03-2022 Glucometer test strips, See Instructions, 100 strip(s), 11, Test TID DX E11.40 on insulin, [facility] #[id number], Supply, 182, cm, 09/13/22 13:17:00 EST, Height/Length Dosing, 140.8, kg, 09/13/22 13:17:00 EST, Weight Dosing Start: 11-03-2022 Insulin Pen Need les 31g x 8 mm, See Instructions, 450 EA, 4, Use up to 4 daily, [facility] #[id number], Supply, 182, cm, 05/22/23 13:30:00 EDT, Height/Length Dosing, 139.6, kg, 05/22/23 13:30:00 EDT, Weight Dosing Start: 05-22-2023 lancets, See Instructions, 100 EA, 11, test blood sugar tid dx E11.9 on insulin, [facility] #[id number], Supply, 182, cm, 09/13/22 13:17:00 EST, Height/Length Dosing, 140.8, kg, 09/13/22 13:17:00 EST, Weight Dosing Start: 11-03-2022 Glucometer test strips, See Instructions, 100 strip(s), 11, Test TID DX E11.40 on insulin, [facility] #[id number], Supply, 182, cm, 09/13/22 13:17:00 EST, Height/Length Dosing, 140.8, kg, 09/13/22 13:17:00 EST, Weight Dosing Start: 11-03-2022 Insulin Pen Need les 31g x 8 mm, See Instructions, 450 EA, 4, Use up to 4 daily, [facility] #[id number], Supply, 182, cm, 05/22/23 13:30:00 EDT, Height/Length Dosing, 139.6, kg, 05/22/23 13:30:00 EDT, Weight Dosing Start: 05-22-2023 lancets, See Instructions, 100 EA, 11, test blood sugar tid dx E11.9 on insulin, [facility] #[id number], Supply, 182, cm, 09/13/22 13:17:00 EST, Height/Length Dosing, 140.8, kg, 09/13/22 13:17:00 EST, Weight Dosing Start: 11-03-2022 Glucometer test strips, See Instructions, 100 strip(s), 11, Test TID DX E11.40 on insulin, [facility] #[id number], Supply, 182, cm, 09/13/22 13:17:00 EST, Height/Length Dosing, 140.8, kg, 09/13/22 13:17:00 EST, Weight Dosing Start: 11-03-2022 Insulin Pen Need les 31g x 8 mm, See Instructions, 450 EA, 4, Use up to 4 daily, [facility] #[id number], Supply, 182, cm, 05/22/23 13:30:00 EDT, Height/Length Dosing, 139.6, kg, 05/22/23 13:30:00 EDT, Weight Dosing Start: 05-22-2023 lancets, See Instructions, 100 EA, 11, test blood sugar tid dx E11.9 on insulin, [facility] #[id number], Supply, 182, cm, 09/13/22 13:17:00 EST, Height/Length Dosing, 140.8, kg, 09/13/22 13:17:00 EST, Weight Dosing Start: 11-03-2022 Glucometer test strips, See Instructions, 100 strip(s), 11, Test TID DX E11.40 on insulin, [facility] #[id number], Supply, 182, cm, 09/13/22 13:17:00 EST, Height/Length Dosing, 140.8, kg, 09/13/22 13:17:00 EST, Weight Dosing Start: 11-03-2022 Insulin Pen Need les 31g x 8 mm, See Instructions, 450 EA, 4, Use up to 4 daily, [facility] #[id number], Supply, 182, cm, 05/22/23 13:30:00 EDT, Height/Length Dosing, 139.6, kg, 05/22/23 13:30:00 EDT, Weight Dosing Start: 05-22-2023 lancets, See Instructions, 100 EA, 11, test blood sugar tid dx E11.9 on insulin, [facility] #[id number], Supply, 182, cm, 09/13/22 13:17:00 EST, Height/Length Dosing, 140.8, kg, 09/13/22 13:17:00 EST, Weight Dosing Start: 11-03-2022 Glucometer test strips, See Instructions, 100 strip(s), 11, Test TID DX E11.40 on insulin, [facility] #[id number], Supply, 182, cm, 09/13/22 13:17:00 EST, Height/Length Dosing, 140.8, kg, 09/13/22 13:17:00 EST, Weight Dosing Start: 11-03-2022 Insulin Pen Need les 31g x 8 mm, See Instructions, 450 EA, 4, Use up to 4 daily, [facility] #[id number], Supply, 182, cm, 05/22/23 13:30:00 EDT, Height/Length Dosing, 139.6, kg, 05/22/23 13:30:00 EDT, Weight Dosing Start: 05-22-2023 lancets, See Instructions, 100 EA, 11, test blood sugar tid dx E11.9 on insulin, [facility] #[id number], Supply, 182, cm, 09/13/22 13:17:00 EST, Height/Length Dosing, 140.8, kg, 09/13/22 13:17:00 EST, Weight Dosing Start: 11-03-2022 Glucometer test strips, See Instructions, 100 strip(s), 11, Test TID DX E11.40 on insulin, [facility] #[id number], Supply, 182, cm, 09/13/22 13:17:00 EST, Height/Length Dosing, 140.8, kg, 09/13/22 13:17:00 EST, Weight Dosing Start: 11-03-2022 Insulin Pen Need les 31g x 8 mm, See Instructions, 450 EA, 4, Use up to 4 daily, [facility] #[id number], Supply, 182, cm, 05/22/23 13:30:00 EDT, Height/Length Dosing, 139.6, kg, 05/22/23 13:30:00 EDT, Weight Dosing Start: 05-22-2023 lancets, See Instructions, 100 EA, 11, test blood sugar tid dx E11.9 on insulin, [facility] #[id number], Supply, 182, cm, 09/13/22 13:17:00 EST, Height/Length Dosing, 140.8, kg, 09/13/22 13:17:00 EST, Weight Dosing Start: 11-03-2022 Glucometer test strips, See Instructions, 100 strip(s), 11, Test TID DX E11.40 on insulin, [facility] #[id number], Supply, 180, cm, 09/12/23 13:35:00 EST, Height/Length Dosing, 149.8, kg, 09/12/23 13:35:00 EST, Weight Dosing Start: 09-16-2023 Insulin Pen Need les 31g x 8 mm, See Instructions, 450 EA, 4, Use up to 4 daily, [facility] #[id number], Supply, 180, cm, 09/12/23 13:35:00 EST, Height/Length Dosing, 149.8, kg, 09/12/23 13:35:00 EST, Weight Dosing Start: 09-16-2023 lancets, See Instructions, 100 EA, 11, test blood sugar tid dx E11.9 on insulin, [facility] #[id number], Supply, 180, cm, 09/12/23 13:35:00 EST, Height/Length Dosing, 149.8, kg, 09/12/23 13:35:00 EST, Weight Dosing Start: 09-16-2023 Glucometer test strips, See Instructions, 100 strip(s), 11, Test TID DX E11.40 on insulin, [facility] #[id number], Supply, 180, cm, 09/12/23 13:35:00 EST, Height/Length Dosing, 149.8, kg, 09/12/23 13:35:00 EST, Weight Dosing Start: 09-16-2023 Insulin Pen Need les 31g x 8 mm, See Instructions, 450 EA, 4, Use up to 4 daily, [facility] #[id number], Supply, 180, cm, 09/12/23 13:35:00 EST, Height/Length Dosing, 149.8, kg, 09/12/23 13:35:00 EST, Weight Dosing Start: 09-16-2023 lancets, See Instructions, 100 EA, 11, test blood sugar tid dx E11.9 on insulin, [facility] #[id number], Supply, 180, cm, 09/12/23 13:35:00 EST, Height/Length Dosing, 149.8, kg, 09/12/23 13:35:00 EST, Weight Dosing Start: 09-16-2023 Glucometer test strips, See Instructions, 100 strip(s), 11, Test TID DX E11.40 on insulin, [facility] #[id number], Supply, 180, cm, 09/12/23 13:35:00 EST, Height/Length Dosing, 149.8, kg, 09/12/23 13:35:00 EST, Weight Dosing Start: 09-16-2023 Insulin Pen Need les 31g x 8 mm, See Instructions, 450 EA, 4, Use up to 4 daily, [facility] #[id number], Supply, 180, cm, 09/12/23 13:35:00 EST, Height/Length Dosing, 149.8, kg, 09/12/23 13:35:00 EST, Weight Dosing Start: 09-16-2023 lancets, See Instructions, 100 EA, 11, test blood sugar tid dx E11.9 on insulin, [facility] #[id number], Supply, 180, cm, 09/12/23 13:35:00 EST, Height/Length Dosing, 149.8, kg, 09/12/23 13:35:00 EST, Weight Dosing Start: 09-16-2023 Glucometer test strips, See Instructions, 100 strip(s), 11, Test TID DX E11.40 on insulin, [facility] #[id number], Supply, 180, cm, 09/12/23 13:35:00 EST, Height/Length Dosing, 149.8, kg, 09/12/23 13:35:00 EST, Weight Dosing Start: 09-16-2023 Insulin Pen Need les 31g x 8 mm, See Instructions, 450 EA, 4, Use up to 4 daily, [facility] #[id number], Supply, 180, cm, 09/12/23 13:35:00 EST, Height/Length Dosing, 149.8, kg, 09/12/23 13:35:00 EST, Weight Dosing Start: 09-16-2023 lancets, See Instructions, 100 EA, 11, test blood sugar tid dx E11.9 on insulin, [facility] #[id number], Supply, 180, cm, 09/12/23 13:35:00 EST, Height/Length Dosing, 149.8, kg, 09/12/23 13:35:00 EST, Weight Dosing Start: 09-16-2023 Glucometer test strips, See Instructions, 100 strip(s), 11, Test TID DX E11.40 on insulin, [facility] #[id number], Supply, 180, cm, 09/12/23 13:35:00 EST, Height/Length Dosing, 149.8, kg, 09/12/23 13:35:00 EST, Weight Dosing Start: 09-16-2023 Insulin Pen Need les 31g x 8 mm, See Instructions, 450 EA, 4, Use up to 4 daily, [facility] #[id number], Supply, 180, cm, 09/12/23 13:35:00 EST, Height/Length Dosing, 149.8, kg, 09/12/23 13:35:00 EST, Weight Dosing Start: 09-16-2023 lancets, See Instructions, 100 EA, 11, test blood sugar tid dx E11.9 on insulin, [facility] #[id number], Supply, 180, cm, 09/12/23 13:35:00 EST, Height/Length Dosing, 149.8, kg, 09/12/23 13:35:00 EST, Weight Dosing Start: 09-16-2023 Glucometer test strips, See Instructions, 100 strip(s), 11, Test TID DX E11.40 on insulin, [facility] #[id number], Supply, 180, cm, 09/12/23 13:35:00 EST, Height/Length Dosing, 149.8, kg, 09/12/23 13:35:00 EST, Weight Dosing Start: 09-16-2023 Insulin Pen Need les 31g x 8 mm, See Instructions, 450 EA, 4, Use up to 4 daily, [facility] #[id number], Supply, 180, cm, 09/12/23 13:35:00 EST, Height/Length Dosing, 149.8, kg, 09/12/23 13:35:00 EST, Weight Dosing Start: 09-16-2023 lancets, See Instructions, 100 EA, 11, test blood sugar tid dx E11.9 on insulin, [facility] #[id number], Supply, 180, cm, 09/12/23 13:35:00 EST, Height/Length Dosing, 149.8, kg, 09/12/23 13:35:00 EST, Weight Dosing Start: 09-16-2023 Glucometer test strips, See Instructions, 100 strip(s), 11, Test TID DX E11.40 on insulin, [facility] #[id number], Supply, 180, cm, 09/12/23 13:35:00 EST, Height/Length [...] tid dx E11.9 on insulin, [facility] #[id number], Supply, 180, cm, 09/12/23 13:35:00 EST, Height/Length Dosing, 149.8, kg, 09/12/23 13:35:00 EST, Weight Dosing Start: 09-16-2023 Glucometer test strips, See Instructions, 100 strip(s), 11, Test TID DX E11.40 on insulin, [facility] #[id number], Supply, 180, cm, 09/12/23 13:35:00 EST, Height/Length Dosing, 149.8, kg, 09/12/23 13:35:00 EST, Weight Dosing Start: 09-16-2023 Insulin Pen Need les 31g x 8 mm, See Instructions, 450 EA, 4, Use up to 4 daily, [facility] #[id number], Supply, 180, cm, 09/12/23 13:35:00 EST, Height/Length Dosing, 149.8, kg, 09/12/23 13:35:00 EST, Weight Dosing Start: 09-16-2023 lancets, See Instructions, 100 EA, 11, test blood sugar tid dx E11.9 on insulin, [facility] #[id number], Supply, 180, cm, 09/12/23 13:35:00 EST, Height/Length Dosing, 149.8, kg, 09/12/23 13:35:00 EST, Weight Dosing Start: 09-16-2023 Glucometer test strips, See Instructions, 100 strip(s), 11, Test TID DX E11.40 on insulin, [facility] #[id number], Supply, 180, cm, 09/12/23 13:35:00 EST, Height/Length Dosing, 149.8, kg, 09/12/23 13:35:00 EST, Weight Dosing Start: 09-16-2023 Insulin Pen Need les 31g x 8 mm, See Instructions, 450 EA, 4, Use up to 4 daily, [facility] #[id number], Supply, 180, cm, 09/12/23 13:35:00 EST, Height/Length Dosing, 149.8, kg, 09/12/23 13:35:00 EST, Weight Dosing Start: 09-16-2023 lancets, See Instructions, 100 EA, 11, test blood sugar tid dx E11.9 on insulin, [facility] #[id number], Supply, 180, cm, 09/12/23 13:35:00 EST, Height/Length Dosing, 149.8, kg, 09/12/23 13:35:00 EST, Weight Dosing Start: 09-16-2023 Glucometer test strips, See Instructions, 100 strip(s), 11, Test TID DX E11.40 on insulin, [facility] #[id number], Supply, 180, cm, 09/12/23 13:35:00 EST, Height/Length Dosing, 149.8, kg, 09/12/23 13:35:00 EST, Weight Dosing Start: 09-16-2023 Insulin Pen Need les 31g x 8 mm, See Instructions, 450 EA, 4, Use up to 4 daily, [facility] #[id number], Supply, 180, cm, 09/12/23 13:35:00 EST, Height/Length Dosing, 149.8, kg, 09/12/23 13:35:00 EST, Weight Dosing Start: 09-16-2023 lancets, See Instructions, 100 EA, 11, test blood sugar tid dx E11.9 on insulin, [facility] #[id number], Supply, 180, cm, 09/12/23 13:35:00 EST, Height/Length Dosing, 149.8, kg, 09/12/23 13:35:00 EST, Weight Dosing Start: 09-16-2023 Glucometer test strips, See Instructions, 100 strip(s), 11, Test TID DX E11.40 on insulin, [facility] #[id number], Supply, 180, cm, 09/12/23 13:35:00 EST, Height/Length Dosing, 149.8, kg, 09/12/23 13:35:00 EST, Weight Dosing Start: 09-16-2023 Insulin Pen Need les 31g x 8 mm, See Instructions, 450 EA, 4, Use up to 4 daily, [facility] #[id number], Supply, 180, cm, 09/12/23 13:35:00 EST, Height/Length Dosing, 149.8, kg, 09/12/23 13:35:00 EST, Weight Dosing Start: 09-16-2023 lancets, See Instructions, 100 EA, 11, test blood sugar tid dx E11.9 on insulin, [facility] #[id number], Supply, 180, cm, 09/12/23 13:35:00 EST, Height/Length Dosing, 149.8, kg, 09/12/23 13:35:00 EST, Weight Dosing Start: 09-16-2023 Glucometer test strips, See Instructions, 100 strip(s), 11, Test TID DX E11.40 on insulin, [facility] #[id number], Supply, 180, cm, 09/12/23 13:35:00 EST, Height/Length Dosing, 149.8, kg, 09/12/23 13:35:00 EST, Weight Dosing Start: 09-16-2023 Insulin Pen Need les 31g x 8 mm, See Instructions, 450 EA, 4, Use up to 4 daily, [facility] #[id number], Supply, 180, cm, 09/12/23 13:35:00 EST, Height/Length Dosing, 149.8, kg, 09/12/23 13:35:00 EST, Weight Dosing Start: 09-16-2023 lancets, See Instructions, 100 EA, 11, test blood sugar tid dx E11.9 on insulin, [facility] #[id number], Supply, 180, cm, 09/12/23 13:35:00 EST, Height/Length Dosing, 149.8, kg, 09/12/23 13:35:00 EST, Weight Dosing Start: 09-16-2023 Glucometer test strips, See Instructions, 100 strip(s), 11, Test TID DX E11.40 on insulin, [facility] #[id number], Supply, 180, cm, 09/12/23 13:35:00 EST, Height/Length Dosing, 149.8, kg, 09/12/23 13:35:00 EST, Weight Dosing Start: 09-16-2023 Insulin Pen Need les 31g x 8 mm, See Instructions, 450 EA, 4, Use up to 4 daily, [facility] #[id number], Supply, 180, cm, 09/12/23 13:35:00 EST, Height/Length Dosing, 149.8, kg, 09/12/23 13:35:00 EST, Weight Dosing Start: 09-16-2023 lancets, See Instructions, 100 EA, 11, test blood sugar tid dx E11.9 on insulin, [facility] #[id number], Supply, 180, cm, 09/12/23 13:35:00 EST, Height/Length Dosing, 149.8, kg, 09/12/23 13:35:00 EST, Weight Dosing Start: 09-16-2023 Glucometer test strips, See Instructions, 100 strip(s), 11, Test TID DX E11.40 on insulin, [facility] #[id number], Supply, 180, cm, 09/12/23 13:35:00 EST, Height/Length Dosing, 149.8, kg, 09/12/23 13:35:00 EST, Weight Dosing Start: 09-16-2023 Insulin Pen Need les 31g x 8 mm, See Instructions, 450 EA, 4, Use up to 4 daily, [facility] #[id number], Supply, 180, cm, 09/12/23 13:35:00 EST, Height/Length Dosing, 149.8, kg, 09/12/23 13:35:00 EST, Weight Dosing Start: 09-16-2023 lancets, See Instructions, 100 EA, 11, test blood sugar tid dx E11.9 on insulin, [facility] #[id number], Supply, 180, cm, 09/12/23 13:35:00 EST, Height/Length Dosing, 149.8, kg, 09/12/23 13:35:00 EST, Weight Dosing Start: 09-16-2023 Glucometer test strips, See Instructions, 100 strip(s), 11, Test TID DX E11.40 on insulin, [facility] #[id number], Supply, 180, cm, 09/12/23 13:35:00 EST, Height/Length Dosing, 149.8, kg, 09/12/23 13:35:00 EST, Weight Dosing Start: 09-16-2023 Insulin Pen Need les 31g x 8 mm, See Instructions, 450 EA, 4, Use up to 4 daily, [facility] #[id number], Supply, 180, cm, 09/12/23 13:35:00 EST, Height/Length Dosing, 149.8, kg, 09/12/23 13:35:00 EST, Weight Dosing Start: 09-16-2023 lancets, See Instructions, 100 EA, 11, test blood sugar tid dx E11.9 on insulin, [facility] #[id number], Supply, 180, cm, 09/12/23 13:35:00 EST, Height/Length Dosing, 149.8, kg, 09/12/23 13:35:00 EST, Weight Dosing Start: 09-16-2023 Glucometer test strips, See Instructions, 100 strip(s), 11, Test TID DX E11.40 on insulin, [facility] #[id number], Supply, 180, cm, 09/12/23 13:35:00 EST, Height/Length Dosing, 149.8, kg, 09/12/23 13:35:00 EST, Weight Dosing Start: 09-16-2023 Insulin Pen Need les 31g x 8 mm, See Instructions, 450 EA, 4, Use up to 4 daily, [facility] #[id number], Supply, 180, cm, 09/12/23 13:35:00 EST, Height/Length Dosing, 149.8, kg, 09/12/23 13:35:00 EST, Weight Dosing Start: 09-16-2023 lancets, See Instructions, 100 EA, 11, test blood sugar tid dx E11.9 on insulin, [facility] #[id number], Supply, 180, cm, 09/12/23 13:35:00 EST, Height/Length Dosing, 149.8, kg, 09/12/23 13:35:00 EST, Weight Dosing Start: 09-16-2023 Glucometer test strips, See Instructions, 100 strip(s), 11, Test TID DX E11.40 on insulin, [facility] #[id number], Supply, 180, cm, 09/12/23 13:35:00 EST, Height/Length Dosing, 149.8, kg, 09/12/23 13:35:00 EST, Weight Dosing Start: 09-16-2023 Insulin Pen Need les 31g x 8 mm, See Instructions, 450 EA, 4, Use up to 4 daily, [facility] #[id number], Supply, 180, cm, 09/12/23 13:35:00 EST, Height/Length Dosing, 149.8, kg, 09/12/23 13:35:00 EST, Weight Dosing Start: 09-16-2023 lancets, See Instructions, 100 EA, 11, test blood sugar tid dx E11.9 on insulin, [facility] #[id number], Supply, 180, cm, 09/12/23 13:35:00 EST, Height/Length Dosing, 149.8, kg, 09/12/23 13:35:00 EST, Weight Dosing Start: 09-16-2023 Glucometer test strips, See Instructions, 100 strip(s), 11, Test TID DX E11.40 on insulin, [facility] #[id number], Supply, 180, cm, 09/12/23 13:35:00 EST, Height/Length Dosing, 149.8, kg, 09/12/23 13:35:00 EST, Weight Dosing Start: 09-16-2023 Insulin Pen Need les 31g x 8 mm, See Instructions, 450 EA, 4, Use up to 4 daily, [facility] #[id number], Supply, 180, cm, 09/12/23 13:35:00 EST, Height/Length Dosing, 149.8, kg, 09/12/23 13:35:00 EST, Weight Dosing Start: 09-16-2023 lancets, See Instructions, 100 EA, 11, test blood sugar tid dx E11.9 on insulin, [facility] #[id number], Supply, 180, cm, 09/12/23 13:35:00 EST, Height/Length Dosing, 149.8, kg, 09/12/23 13:35:00 EST, Weight Dosing Start: 09-16-2023 Glucometer test strips, See Instructions, 100 strip(s), 11, Test TID DX E11.40 on insulin, [facility] #[id number], Supply, 180, cm, 09/12/23 13:35:00 EST, Height/Length Dosing, 149.8, kg, 09/12/23 13:35:00 EST, Weight Dosing Start: 09-16-2023 Insulin Pen Need les 31g x 8 mm, See Instructions, 450 EA, 4, Use up to 4 daily, [facility] #[id number], Supply, 180, cm, 09/12/23 13:35:00 EST, Height/Length Dosing, 149.8, kg, 09/12/23 13:35:00 EST, Weight Dosing Start: 09-16-2023 lancets, See Instructions, 100 EA, 11, test blood sugar tid dx E11.9 on insulin, [facility] #[id number], Supply, 180, cm, 09/12/23 13:35:00 EST, Height/Length Dosing, 149.8, kg, 09/12/23 13:35:00 EST, Weight Dosing Start: 09-16-2023 Glucometer test strips, See Instructions, 100 strip(s), 11, Test TID DX E11.40 on insulin, [facility] #[id number], Supply, 180, cm, 09/12/23 13:35:00 EST, Height/Length Dosing, 149.8, kg, 09/12/23 13:35:00 EST, Weight Dosing Start: 09-16-2023 Insulin Pen Need les 31g x 8 mm, See Instructions, 450 EA, 4, Use up to 4 daily, [facility] #[id number], Supply, 180, cm, 09/12/23 13:35:00 EST, Height/Length Dosing, 149.8, kg, 09/12/23 13:35:00 EST, Weight Dosing Start: 09-16-2023 lancets, See Instructions, 100 EA, 11, test blood sugar tid dx E11.9 on insulin, [facility] #[id number], Supply, 180, cm, 09/12/23 13:35:00 EST, Height/Length Dosing, 149.8, kg, 09/12/23 13:35:00 EST, Weight Dosing Start: 09-16-2023 Glucometer test strips, See Instructions, 100 strip(s), 11, Test TID DX E11.40 on insulin, [facility] #[id number], Supply, 180, cm, 09/12/23 13:35:00 EST, Height/Length Dosing, 149.8, kg, 09/12/23 13:35:00 EST, Weight Dosing Start: 09-16-2023 Insulin Pen Need les 31g x 8 mm, See Instructions, 450 EA, 4, Use up to 4 daily, [facility] #[id number], Supply, 180, cm, 09/12/23 13:35:00 EST, Height/Length Dosing, 149.8, kg, 09/12/23 13:35:00 EST, Weight Dosing Start: 09-16-2023 lancets, See Instructions, 100 EA, 11, test blood sugar tid dx E11.9 on insulin, [facility] #[id number], Supply, 180, cm, 09/12/23 13:35:00 EST, Height/Length Dosing, 149.8, kg, 09/12/23 13:35:00 EST, Weight Dosing Start: 09-16-2023 Glucometer test strips, See Instructions, 100 strip(s), 11, Test TID DX E11.40 on insulin, [facility] #[id number], Supply, 180, cm, 09/12/23 13:35:00 EST, Height/Length Dosing, 149.8, kg, 09/12/23 13:35:00 EST, Weight Dosing Start: 09-16-2023 Insulin Pen Need les 31g x 8 mm, See Instructions, 450 EA, 4, Use up to 4 daily, [facility] #[id number], Supply, 180, cm, 09/12/23 13:35:00 EST, Height/Length Dosing, 149.8, kg, 09/12/23 13:35:00 EST, Weight Dosing Start: 09-16-2023 lancets, See Instructions, 100 EA, 11, test blood sugar tid dx E11.9 on insulin, [facility] #[id number], Supply, 180, cm, 09/12/23 13:35:00 EST, Height/Length Dosing, 149.8, kg, 09/12/23 13:35:00 EST, Weight Dosing Start: 09-16-2023 Glucometer test strips, See Instructions, 100 strip(s), 11, Test TID DX E11.40 on insulin, [facility] #[id number], Supply, 180, cm, 09/12/23 13:35:00 EST, Height/Length Dosing, 149.8, kg, 09/12/23 13:35:00 EST, Weight Dosing Start: 09-16-2023 Insulin Pen Need les 31g x 8 mm, See Instructions, 450 EA, 4, Use up to 4 daily, [facility] #[id number], Supply, 180, cm, 09/12/23 13:35:00 EST, Height/Length Dosing, 149.8, kg, 09/12/23 13:35:00 EST, Weight Dosing Start: 09-16-2023 lancets, See Instructions, 100 EA, 11, test blood sugar tid dx E11.9 on insulin, [facility] #[id number], Supply, 180, cm, 09/12/23 13:35:00 EST, Height/Length Dosing, 149.8, kg, 09/12/23 13:35:00 EST, Weight Dosing Start: 09-16-2023 Glucometer test strips, See Instructions, 100 strip(s), 11, Test TID DX E11.40 on insulin, [facility] #[id number], Supply, 180, cm, 09/12/23 13:35:00 EST, Height/Length Dosing, 149.8, kg, 09/12/23 13:35:00 EST, Weight Dosing Start: 09-16-2023 Insulin Pen Need les 31g x 8 mm, See Instructions, 450 EA, 4, Use up to 4 daily, [facility] #[id number], Supply, 180, cm, 09/12/23 13:35:00 EST, Height/Length Dosing, 149.8, kg, 09/12/23 13:35:00 EST, Weight Dosing Start: 09-16-2023 lancets, See Instructions, 100 EA, 11, test blood sugar tid dx E11.9 on insulin, [facility] #[id number], Supply, 180, cm, 09/12/23 13:35:00 EST, Height/Length Dosing, 149.8, kg, 09/12/23 13:35:00 EST, Weight Dosing Start: 09-16-2023 Glucometer test strips, See Instructions, 100 strip(s), 11, Test TID DX E11.40 on insulin, [facility] #[id number], Supply, 180, cm, 09/12/23 13:35:00 EST, Height/Length Dosing, 149.8, kg, 09/12/23 13:35:00 EST, Weight Dosing Start: 09-16-2023 Insulin Pen Need les 31g x 8 mm, See Instructions, 450 EA, 4, Use up to 4 daily, [facility] #[id number], Supply, 180, cm, 09/12/23 13:35:00 EST, Height/Length Dosing, 149.8, kg, 09/12/23 13:35:00 EST, Weight Dosing Start: 09-16-2023 lancets, See Instructions, 100 EA, 11, test blood sugar tid dx E11.9 on insulin, [facility] #[id number], Supply, 180, cm, 09/12/23 13:35:00 EST, Height/Length Dosing, 149.8, kg, 09/12/23 13:35:00 EST, Weight Dosing Start: 09-16-2023 Glucometer test strips, See Instructions, 100 strip(s), 11, Test TID DX E11.40 on insulin, [facility] #[id number], Supply, 180, cm, 09/12/23 13:35:00 EST, Height/Length Dosing, 149.8, kg, 09/12/23 13:35:00 EST, Weight Dosing Start: 09-16-2023 Insulin Pen Need les 31g x 8 mm, See Instructions, 450 EA, 4, Use up to 4 daily, [facility] #[id number], Supply, 180, cm, 09/12/23 13:35:00 EST, Height/Length [...] TID DX E11.40 on insulin, [facility] #[id number], Supply, 180, cm, 09/12/23 13:35:00 EST, Height/Length Dosing, 149.8, kg, 09/12/23 13:35:00 EST, Weight Dosing Start: 09-16-2023 Insulin Pen Need les 31g x 8 mm, See Instructions, 450 EA, 4, Use up to 4 daily, [facility] #[id number], Supply, 180, cm, 09/12/23 13:35:00 EST, Height/Length Dosing, 149.8, kg, 09/12/23 13:35:00 EST, Weight Dosing Start: 09-16-2023 lancets, See Instructions, 100 EA, 11, test blood sugar tid dx E11.9 on insulin, [facility] #[id number], Supply, 180, cm, 09/12/23 13:35:00 EST, Height/Length Dosing, 149.8, kg, 09/12/23 13:35:00 EST, Weight Dosing Start: 09-16-2023 Glucometer test strips, See Instructions, 100 strip(s), 11, Test TID DX E11.40 on insulin, [facility] #[id number], Supply, 180, cm, 09/12/23 13:35:00 EST, Height/Length Dosing, 149.8, kg, 09/12/23 13:35:00 EST, Weight Dosing Start: 09-16-2023 Insulin Pen Need les 31g x 8 mm, See Instructions, 450 EA, 4, Use up to 4 daily, [facility] #[id number], Supply, 180, cm, 09/12/23 13:35:00 EST, Height/Length Dosing, 149.8, kg, 09/12/23 13:35:00 EST, Weight Dosing Start: 09-16-2023 lancets, See Instructions, 100 EA, 11, test blood sugar tid dx E11.9 on insulin, [facility] #[id number], Supply, 180, cm, 09/12/23 13:35:00 EST, Height/Length Dosing, 149.8, kg, 09/12/23 13:35:00 EST, Weight Dosing Start: 09-16-2023 Glucometer test strips, See Instructions, 100 strip(s), 11, Test TID DX E11.40 on insulin, [facility] #[id number], Supply, 180, cm, 09/12/23 13:35:00 EST, Height/Length Dosing, 149.8, kg, 09/12/23 13:35:00 EST, Weight Dosing Start: 09-16-2023 Insulin Pen Need les 31g x 8 mm, See Instructions, 450 EA, 4, Use up to 4 daily, [facility] #[id number], Supply, 180, cm, 09/12/23 13:35:00 EST, Height/Length Dosing, 149.8, kg, 09/12/23 13:35:00 EST, Weight Dosing Start: 09-16-2023 lancets, See Instructions, 100 EA, 11, test blood sugar tid dx E11.9 on insulin, [facility] #[id number], Supply, 180, cm, 09/12/23 13:35:00 EST, Height/Length Dosing, 149.8, kg, 09/12/23 13:35:00 EST, Weight Dosing Start: 09-16-2023 Glucometer test strips, See Instructions, 100 strip(s), 11, Test TID DX E11.40 on insulin, [facility] #[id number], Supply, 180, cm, 09/12/23 13:35:00 EST, Height/Length Dosing, 149.8, kg, 09/12/23 13:35:00 EST, Weight Dosing Start: 09-16-2023 Insulin Pen Need les 31g x 8 mm, See Instructions, 450 EA, 4, Use up to 4 daily, [facility] #[id number], Supply, 180, cm, 09/12/23 13:35:00 EST, Height/Length Dosing, 149.8, kg, 09/12/23 13:35:00 EST, Weight Dosing Start: 09-16-2023 lancets, See Instructions, 100 EA, 11, test blood sugar tid dx E11.9 on insulin, [facility] #[id number], Supply, 180, cm, 09/12/23 13:35:00 EST, Height/Length Dosing, 149.8, kg, 09/12/23 13:35:00 EST, Weight Dosing Start: 09-16-2023 Glucometer test strips, See Instructions, 100 strip(s), 11, Test TID DX E11.40 on insulin, [facility] #[id number], Supply, 180, cm, 09/12/23 13:35:00 EST, Height/Length Dosing, 149.8, kg, 09/12/23 13:35:00 EST, Weight Dosing Start: 09-16-2023 Insulin Pen Need les 31g x 8 mm, See Instructions, 450 EA, 4, Use up to 4 daily, [facility] #[id number], Supply, 180, cm, 09/12/23 13:35:00 EST, Height/Length Dosing, 149.8, kg, 09/12/23 13:35:00 EST, Weight Dosing Start: 09-16-2023 lancets, See Instructions, 100 EA, 11, test blood sugar tid dx E11.9 on insulin, [facility] #[id number], Supply, 180, cm, 09/12/23 13:35:00 EST, Height/Length Dosing, 149.8, kg, 09/12/23 13:35:00 EST, Weight Dosing Start: 09-16-2023 [id number] Start: 05-05-2024 End: 06-21-2025 Glucometer test strips, See Instructions, 100 strip(s), 11, Test TID DX E11.40 on insulin, [facility] #[id number], Supply, 180, cm, 09/12/23 13:35:00 EST, Height/Length Dosing, 149.8, kg, 09/12/23 13:35:00 EST, Weight Dosing Start: 09-16-2023 Insulin Pen Need les 31g x 8 mm, See Instructions, 450 EA, 4, Use up to 4 daily, [facility] #[id number], Supply, 180, cm, 09/12/23 13:35:00 EST, Height/Length Dosing, 149.8, kg, 09/12/23 13:35:00 EST, Weight Dosing Start: 09-16-2023 lancets, See Instructions, 100 EA, 11, test blood sugar tid dx E11.9 on insulin, [facility] #[id number], Supply, 180, cm, 09/12/23 13:35:00 EST, Height/Length Dosing, 149.8, kg, 09/12/23 13:35:00 EST, Weight Dosing Start: 09-16-2023 Glucometer test strips, See Instructions, 100 strip(s), 11, Test TID DX E11.40 on insulin, [facility] #[id number], Supply, 180, cm, 09/12/23 13:35:00 EST, Height/Length Dosing, 149.8, kg, 09/12/23 13:35:00 EST, Weight Dosing Start: 09-16-2023 Insulin Pen Need les 31g x 8 mm, See Instructions, 450 EA, 4, Use up to 4 daily, [facility] #[id number], Supply, 180, cm, 09/12/23 13:35:00 EST, Height/Length Dosing, 149.8, kg, 09/12/23 13:35:00 EST, Weight Dosing Start: 09-16-2023 lancets, See Instructions, 100 EA, 11, test blood sugar tid dx E11.9 on insulin, [facility] #[id number], Supply, 180, cm, 09/12/23 13:35:00 EST, Height/Length Dosing, 149.8, kg, 09/12/23 13:35:00 EST, Weight Dosing Start: 09-16-2023 Glucometer test strips, See Instructions, 100 strip(s), 11, Test TID DX E11.40 on insulin, [facility] #[id number], Supply, 180, cm, 09/12/23 13:35:00 EST, Height/Length Dosing, 149.8, kg, 09/12/23 13:35:00 EST, Weight Dosing Start: 09-16-2023 Insulin Pen Need les 31g x 8 mm, See Instructions, 450 EA, 4, Use up to 4 daily, [facility] #[id number], Supply, 180, cm, 09/12/23 13:35:00 EST, Height/Length Dosing, 149.8, kg, 09/12/23 13:35:00 EST, Weight Dosing Start: 09-16-2023 lancets, See Instructions, 100 EA, 11, test blood sugar tid dx E11.9 on insulin, [facility] #[id number], Supply, 180, cm, 09/12/23 13:35:00 EST, Height/Length Dosing, 149.8, kg, 09/12/23 13:35:00 EST, Weight Dosing Start: 09-16-2023 USE TO TEST BLOO D SUGARS THREE TIMES A DAY. [id number] Start: 12-05-2024 End: 03-13-2025 Pen Needle 31G x 6mm, See Instructions, 100 EA, 1, Pen Needle 31G x 6mm, [facility] #[id number], Supply, 182, cm, 12/20/24 13:40:00 EDT, Height/Length Dosing, 118.4, kg, 12/20/24 13:40:00 EDT, Weight Dosing Start: 12-21-2024 USE TO TEST BLOO D SUGARS THREE TIMES A DAY. [id number] Start: 03-13-2025 Goals Date Patient Goal Desired Activity /State 12-03-2019 Functional Status Date Assessment Result Facility 12-20-2024 Functional Status N/A [facility] 12-20-2024 Functional Status [facility] 12-04-2024 Patient Health Questionnaire 2 item (PHQ-2) [Reported] [facility] 12-02-2024 Functional Status N/A [facility] 07-09-2024 Functional Status N/A [facility] 06-23-2024 Functional Status N/A [facility] 02-28-2024 Functional Status N/A [facility] 02-09-2024 Functional Status N/A [facility] 01-15-2024 Functional Status N/A [facility] 11-20-2023 Functional Status N/A [facility] 11-17-2023 Functional status Patient is Pro gressing Toward [facility] Work Phone: 11-11-2023 Functional Status N/A [facility] 10-30-2023 Functional Status N/A [facility] 10-18-2023 Functional Status N/A [facility] 10-15-2023 Functional Status N/A [facility] 10-12-2023 Functional status Patient at Baseline [facility] Work Phone: 09-24-2023 Functional Status N/A [facility] 09-17-2023 Functional Status N/A [facility] 08-06-2023 Functional Status N/A [facility] 06-21-2023 Functional status Patient at Baseline [facility] Work Phone: 06-11-2023 Functional Status N/A [facility] 06-11-2023 Functional Status [facility] 05-22-2023 Functional Status N/A [facility] 05-08-2023 Functional Status No [facility] 09-13-2022 Functional Status N/A [facility] 08-04-2022 Functional Status N/A [facility] 03-29-2022 Functional Status N/A [facility] 03-08-2022 Functional Status N/A [facility] Mental Status Date Assessment Result Facility 11-17-2023 Cognitive function Cognitive Sta tus Patient at Baseline [facility] Work Phone: 10-12-2023 Cognitive function Cognitive Sta tus Patient at Baseline [facility] Work Phone: 06-21-2023 Cognitive function Cognitive Sta tus Patient at Baseline [facility] Work Phone: Clinical Notes 12-28-2021 to 06-02-2025 Perlita Meeks MD - 06/02/2025 8:30 AM Louise Brooke MD - 04/29/2025 11:00 AM EDTTelephone Encounter - Cooper Bradford - 03/24/2025 8:06 AM Louise Brooke MD - 03/13/2025 12:20 PM EDT Note Date & Type Note Facility 06-02-2025 History of Present illness Narrative Allergies Allergen Reactions Penicillins Rash Penicillamine Unknown Past Medical History: Diagnosis Date Acute exacerbation of chronic obstructive pulmonary disease (HCC) 11/17/2023 Acute hypoxemic respiratory failure (HCC) Acute on chronic respiratory failure with hypercapnia (HCC) AMY (acute kidney injury) Arthritis Asthma (HCC) Cataract Chronic kidney disease, stage 3b ([facility]) Diabetes ([facility]) Diabetes mellitus with neuropathy ([facility]) Dietary counseling and surveillance Dry eyes GERD (gastroesophageal reflux disease) Hypertension Lymphedema of both lower extremities 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 mellitus ([facility]) Morbid obesity with body mass index (BMI) of 40.0 to 49.9 ([facility]) Onychomycosis Pneumonia 06/19/2024 [facility] (pulmonary valve disease) Type 2 diabetes mellitus with hyperglycemia ([facility]) Vitamin D deficiency, unspecified Assessment/Plan Diabetes Mellitus with signs of diabetic retinopathy on dilated retinal examination today OU: Discussed the pathophysiology of diabetes and its effect on the eye. Stressed the importance of strong glucose control. Advised of importance of at least yearly dilated examinations, but to contact us immediately for any problems or concerns. Continue aggressive control of the blood sugar, blood pressure and cholesterol. documented in this encounter [facility] 04-29-2025 History of Present illness Narrative Images [...] monitor. No change in regimen. Morbid obesity ([facility]) - continue to monitor weight BMI 36.0-36.9,adult documented in this encounter [facility] 03-24-2025 Telephone encounter Note Pt called into the office, he wants to cancel the nurse that is coming to his apartment. He said it is not working out. He thinks might be [facility] 03-24-2025 Miscellaneous Notes Pt called into the office, he wants to cancel the nurse that is coming to his apartment. He said it is not working out. He thinks might be [employer] documented in this encounter [facility] 03-13-2025 History of Present illness Narrative [...] Flowsheet Row Patient Outreach from 03/11/2025 in [facility] with Grecia Mcneil LPN Hospital Information ED, Hospital or Longterm Facility Discharge? Hospital Patient has been contacted within two business days of discharge Yes Diagnosis Electorolyte abnormality from severe hyperglycemia, left leg cramps Discharge Date 03/07/25 Discharged To: Home Setting Discharge Hospital [facility] Admission Date 03/05/25 Medications Discharge [...] Comments DI: CXR, BW Call End Time [id number] Review of Systems General: Denies fever, chills [...] monitor. No change in regimen. Morbid obesity ([facility]) - continue to monitor weight BMI 38.0-38.9,adult Follow up if symptoms worsen or fail to improve. documented in this encounter [facility] 03-07-2025 Note Discharge Summary Admission and [...] 2 days. He was subsequently admitted to [facility] with left leg muscle spasm secondary [...] speech normal Ps (more content not included)... [facility] Comment on above: Result Comment: Elec tronically Signed By: NAHOMY LYMAN, Jordan\.br\Date and Time Signed: 03/07/25 09:36 EDT 03-06-2025 Note Interdisciplinary No te - PT PT Evaluation completed with an [facility] score of 22/24. Pt sitting EOB at entrance and was able to perform sit to stand transfers with Mod I. Pt was able to ambulate with FWW with no reports of leg pain. Did ambulate x 2 times with no LOB or pain. Pt would be functionally safe to return home with use of FWW as prior. No further PT services needed [facility] 03-06-2025 Note Progress Note-Physic abundio Assessment/Plan [...] Was treated with orphenadrine. Ordered: [facility] Hospital Care/Day Moderate 35 Minutes 51908 2. Type 2 diabetes mellitus with hyperosmolar nonketotic hyperglycemia (E11.00: Type 2 diabetes mellitus with hyperosmolarity without nonketotic hyperglycemic-hyperosmolar coma ([facility])) Acute hyperosmolar nonketotic hyperglycemia???present on admission. Secondary to noncompliance with medication. Treated with IV insulin drip and IV fluid. Hemoglobin A1c 11.8%. Will start patient on long-acting insulin, regular insulin and sliding scale insulin. Ordered: [facility] Hospital Care/Day Moderate 35 Minutes [id number] 3. Pseudohyponatremia (R79.89: Other specified abnormal findings of blood chemistry) Secondary to hypoglycemia. Resolved. Ordered: [facility] Hospital Care/Day Moderate 35 Minutes [id number] 4. CKD (chronic kidney disease) (N18.9: Chronic kidney disease, unspecified) Chronic kidney disease stage III???back to baseline. Ordered: [facility] [facility] Hospital Care/Day Moderate 35 Minutes 60153 5. Hypertension (I10: Essential (primary) hypertension) Blood [...] made to ensure accuracy. However inadvertent computerized lens blocker errors may be present. Jordan Macario. Hospitalist. [...] no deformity. Gastrointestin (more content not included)... [facility] Comment on above: Result Comment: Elec [...] 6.9 E9/L (03/05/25 20:15:00) RBC: 4.7 E12/L (03/05/25:15:00) HGB: 14.7 gm/dL (03/05/25 20:15:00) Hct: 44.1 % (03/05/25 20:15:00) MCV: 93.8 fL (03/05/25:15:00) MCH: 31.2 pg (03/05/25 20:15:00) MCHC: 33.2 gm/dL (03/05/25 20:15:00) RDW: 12.9 % (03/05/25 20:15:00) Platelet: 230 E9/L (03/05/25 20:15:00) MPV: 8.1 fL (03/05/25:15:00) Neutro Auto: 72.3 % (03/05/25 20:15:00) Lymph Auto: 17.9 % (03/05/25 20:15:00) Dauphin Auto: 6.5 % (03/05/25 20:15:00) Eos Auto: 2.4 % (03/05/25 20:15:00) Basophil Auto: 0.9 % (03/05/25 20:15:00) Neutro Absolute: 5 E9/L (07/16/25 20:15:00) Lymph Absolute: 1.2 E9/L (03/05/25 20:15:00) [place]hin Absolute: 0.4 E9/L (03/05/25:15:00) Eos Absolute: 0.2 E9/L (03/05/25:15:00) Basophil Absolute: 0.1 E9/L (03/05/25 20:15:00) Glucose Lvl: 1084 mg/dL Critical (03/05/25 20:15:00) Glucose Random: 726 mg/dL Critical (03/05/25 22:25:00) BUN: 40 mg/dL High (03/05/25 20:15:00) Creatinine: 1.9 mg/dL High (03/05/25::) eGFR: 38 mL/min/1.73 m2 Low (03/05/25:15:00) BUN/Creat Ratio: 21 High (03/05/25 20:15:00) Sodium Lvl: 119 mmol/L Critical (03/05/25:15:00) Potassium Lvl: 4.6 mmol/L (03/05/25:15:00) Chloride: 86 mmol/L Low (03/05/25:15:00) CO2: 25 mmol/L (03/05/25:15:00) AGAP: 13 mEq/L (03/05/25 20:15:00) Calcium Lvl: 8.4 mg/dL Low (03/05/25 20:15:00) Alk Phos: 160 Int._Unit/L High (03/05/25 20:15:00) ALT: 19 Int._Unit/L (03/05/25 20:15:00) AST: 15 Int._Unit/L (03/05/25 20:15:00) Total Protein: 6.1 gm/dL (03/05/25 20:15:00) Albumin Lvl: 3.3 gm/dL (03/05/25 20:15:00) Globulin: 2.8 gm/dL (03/05/25 20:15:00) A/G Ratio: 1.2 (03/05/25 20:15:00) B (more content not included)... [facility] Comment on above: Result Comment: Elec tronically Signed By: Erick LYMAN, Jigna\.samir\Date and Time Signed: 03/05/25 23:22 EDT 02-05-2025 History of Present illness Narrative Images from the original note were not included. Subjective Patient ID: Nicole Lora is a 65 y.o. male who presents for No chief complaint on file.. HPI Pt here for follow up. Has been working with [employer] [place] for possible scooter. States they have been [...] weakness, bilateral - Continue to work with [employer] [place] Essential (primary) hypertension Stable, continue to monitor. No change in regimen. Difficulty walking - as above Type 2 diabetes mellitus with hyperglycemia, with long-term current use of insulin (HCC) - continue to follow w/ endocrinology Long-term insulin use (HCC) Morbid obesity (CMS-HCC) - continue to monitor weight BMI 36.0-36.9,adult documented in this encounter [facility] 02-05-2025 Telephone encounter Note Brittani from called and stated that he's been unbalanced, having a hard time sleeping, his blood sugar is at 155. Pt states that is too low for him. [facility] 02-05-2025 Miscellaneous Notes Brittani from called and stated that he's been unbalanced, having a hard time sleeping, his blood sugar is at 155. Pt states that is too low for him. documented in this encounter [facility] 12-25-2024 History of Present illness Narrative [...] mg, Every 24 hours Continuous Blood Gluc Director Transportation (WeoGeoStyle Sage 3 [place]) device 1 each, Does not apply, Continuous Continuous Blood Gluc Sensor (FreeStyle Sage 3 Sensor) misc 1 each, Does not apply, Every 14 days doxycycline (VIBRAMYCIN) 100 mg, 2 times daily DULoxetine (CYMBALTA) 60 mg, Daily Fiasp FlexTouch 100 UNIT/ML injection inject PLUS ISS #2 (EXPECT DAILY DOSE OF 80 UNITS) gabapentin (NEURONTIN) 600 mg, Oral, 3 times daily glucose blood (OneTouch Verio) test strip USE TO TEST BLOOD [...] History: Diagnosis Date Acute hypoxemic respiratory failure ([facility]) Acute on chronic respiratory failure with hypercapnia ([facility]) AMY (acute kidney injury) ([facility]) Arthritis Asthma Cataract Chronic kidney disease, stage 3b ([facility]) ([facility]) [...] edema associated with type 2 diabetes mellitus ([facility]) Morbid obesity with body mass index (BMI) of 40.0 to 49.9 ([facility]) Onychomycosis Pneumonia 06/19/2024 [facility] (pulmonary valve disease) Type 2 diabetes [...] hyperglycemia, with long-term current use of insulin ([facility]) - gabapentin (Neurontin) 600 MG tablet; Take [...] 3 times a day. Insulin long-term use ([facility]) Vitamin D deficiency Encounter for dietary consultation Hyperlipemia, mixed ([facility]) Primary hypertension ([facility]) Follow up in about 6 months (around 06/27/2025). documented in this encounter [facility] 12-21-2024 Hospital Discharge instructions Patient Education [...] concerns. Where to find more information The [place] Diabetes Association: diabetes.org The Association of Diabetes [...] provider. Document Revised: 06/23/2023 Document Reviewed: 06/23/2023 [employer]ck Patient Education 2023 [employer] 12/21/2024 14:26:35 Correction Insulin Correction Insulin [...] vacation, changing your diet, or holidays. ?New wmmb-wwh-vxktdnw or prescription medicines. ?Illness, stress, or anxiety. [...] provider. Document Revised: 08/12/2021 Document Reviewed: 08/12/2021 [employer] Patient Education 2023 Dotted Block. 12/21/2024 14:25:51 Diabetic Neuropathy Diabetic Neuropathy Diabetic [...] provider. Document Revised: 12/17/2020 Document Reviewed: 12/17/2020 [employer] Patient Education 2023 Dotted Block. Follow Up Care 12/20/2024 13:30:13 With:KAYLA SWEENEY Address: [address] [place] [address]- Business (1) When: Unknown Comments:Follow as scheduled in December 2024 With:Mounika Brooke Address: [address] [place] [address]- Business (1) When:7 to 10 days Comments:Call for followup appointment [facility] 12-21-2024 Note Discharge Summary Admission and [...] 3rd toes, and hypertension who presented to [facility] ER with chief complaint of left leg [...] he has not picked up from his boat washer yet. His glucose was slowly improving with [...] losartan, which I confirmed he has with [facility] Refilled glucometer, test strips, lancets???confirmed with Kori that they can fill this and his [...] defer management of his diabetes to his boat washer if he is compliant with follow-up. He [...] no tenderness Eye (more content not included)... [facility] Comment on above: Result Comment: Elec tronically Signed By: Toni Gutierrez III, DO\.br\Date and Time Signed: 12/21/24 14:44 EDT 12-21-2024 [...] TID With When Contact Information KAYLA SWEENEY [address] [place] [address]- Business (1) Additional Instructions: Follow as scheduled in December 2024 Mounikasachin Brooke Within 7 to [address] [place] [address]- Business (1) Additional Instructions: Call for followup [...] 3rd toes, and hypertension who presented to [facility], ER with chief complaint of left leg [...] August 2024. Follows with Dr. Sweeney in [place] Status post 2 L IV fluid bolus [...] Panel Initial Hospital Care/Day Moderate 55 Minutes 14367 2. Leg muscle spasm (M62.838: Other muscle [...] state. Recommend weight loss. Defer to his boat washer to ensure is well versed in therapies [...] BID, # 20 cap(s), Refills(s) 0, Pharmacy: [id number], 183, cm, 06/23/24 13:45:00 EST, Height/Length Dosing, [...] with Cult Rflx XR Chest Single View [facility] [id number] NoteInterdisciplinary Note - PT PT Treatment Recommendations: [...] future falls. Will continue to follow while inpatient.[facility]05-03-2025 NoteInterdisciplinary Note - OT Pt is seen this date for OT evaluation. AMPAC score: 20/24. pt presents with ability to complete functional transfers and short mobility at CGA level with FWW for support, limited by spasms behind L knee, and decreased activity tolerance. OT to continue to follow for treatment. Recommending HH atd/c.[facility]05-02-2025 NoteHistory and Physical Chief Complaint pt. [...] 3rd toes, and hypertension who presented to [facility], ER with chief complaint of left leg spasms.He [...] confusion. He states that he follows with boat washer Dr. Sweeney in [place]. He states that he only takes insulin, [...] 6.2 E9/L (12/20/24 1 (more content not included)...[facility]Result Comment: Electronically Signed By: Toni Gutierrez III, DO\.br\Date and Time Signed: 12/20/24 19:04 [id number] NoteED Patient Education Note Endocrinology Hyperglycemia Hyperglycemia [...] instructions at home: General instructions ??? Take elcq-kpy-mbkfytz and prescription medicines only as told by [...] need help with this (more content not included)...[facility]04-30-2025 History of Present illness Narrative* Mone Mcguire, PT - 12/18/2024 1:00 PM EDT Reason for Appointment [facility] [...] on w/c assessment documented in this encounterSaint [facility] CenterAcidbpqcaj11-82-1728 Telephone encounter Note* Telephone Encounter - Cooper Bradford - 12/10/2024 1:35 PM EDT [facility] He stopped in office to Pt is in need of a chair, there is no note added in the last office visit could that be added to the note. He should be seen next week unless he answers his phone today. [facility] [id number] Miscellaneous Notes* Telephone Encounter - Cooper Bradford - 12/10/2024 1:35 PM EDT [facility] He stopped in office to Pt is in need of a chair, there is no note added in the last office visit could that be added to the note. He should be seen next week unless he answers his phone today. documented in this encounterSaint [facility] [id number] History of Present illness Narrative* Mounika Brooke [...] Flowsheet Row Patient Outreach from 12/04/2024 in [facility] with Kristi Canales LPN Hospital Information ED, Hospital or Longterm Facility Discharge? ED Patient has been contacted within 2 days of being seen in the ED Yes Diagnosis Hyperglycemic, Bronchitis Discharge Date 12/02/24 [Left AMA] Discharged To: Home Setting Discharge Hospital [facility] Call Start Time 09 Admission Date 12/02/24 Medications Discharge medications reviewed [...] fail to improve. documented in this encounterSaint Louis [facility] [id number] Hospital Discharge instructions Patient Education 12/02/2024 15:24:12 [...] condition. Follow these instructions at home: Take yeoj-tmc-jywdrrf and prescription medicines only as told by [...] and water are not available, use hand cafe manager. Avoid contact with people who have cold [...] it is easier to cough up. Take wdnz-cfb-cyywhvr and prescription medicines only as told by [...] provider. Document Revised: 11/17/2022 Document Reviewed: 12/08/2021 [employer] Patient Education 2023 Dotted Block. 12/02/2024 15:24:12 Type 2 Diabetes Mellitus, Self-Care, Adult, Swnv-yz-Tbmd Type 2 Diabetes Mellitus, Self-Care, Adult When [...] tell you how to do this. Take snrh-djt-nmgzboh and prescription medicines only as told by [...] for cuts, bruises, redness, blisters, or sores. Cut Bank your teeth and gums two times a [...] more information about diabetes, please go to: [place] Diabetes Association: www.diabetes.org [place] Association of Diabetes Care and Education Specialists: [...] provider. Document Revised: 11/01/2021 Document Reviewed: 11/01/2021 [employer]ck Patient Education 2023 Dotted Block. 12/02/2024 15:24:12 Hyperglycemia Hyperglycemia Hyperglycemia occurs when [...] these instructions at home: General instructions Take tnfv-rhi-mkztlcg and prescription medicines only as told by [...] alert jewelry. Where to find more information [place] Diabetes Association: www.diabetes.org Contact a health care [...] provider. Document Revised: 05/20/2021 Document Reviewed: 05/21/2021 [employer]ck Patient Education 2023 Dotted Block. Follow Up Care 12/02/2024 12:36:28 With:Mounika Brooke Address: [address] [place] [address]- Business (1) When:12/05/2024 15:08:13 Comments:Call for diagnosis based follow up [facility] 04-14-2025 NoteED Patient Education Note Endocrinology [...] you how to do this. ??? Take smyj-gsw-jtdrlme and prescription medicines only as told by [...] mL), one 5 oz (more content not included)...[facility]01-15-2025 History of Present illness Narrative* Kayla [...] twice a day. Blood sugar in our [id number]; A1C 11. SUBJECTIVE: MEDICATIONS: Current Outpatient Medications Medication Instructions albuterol HFA 90 mcg/act inhaler 2 puffs, Every 4 hours PRN amLODIPine (Norvasc) 10 MG tablet 1 tablet, Daily atorvastatin (LIPITOR) 40 mg, Every 24 hours Continuous Blood Gluc Director Transportation (FreeStyle Sage 3 [place]) device 1 each, Does not apply, Continuous [...] History: Diagnosis Date Acute hypoxemic respiratory failure (CMS/HCC) Acute on chronic respiratory failure with hypercapnia ([facility]) AMY (acute kidney injury) ([facility]) Arthritis Asthma ([facility]) Cataract Chronic kidney disease, stage 3b (HCC) ([facility]) Diabetes ([facility]) Diabetes mellitus with neuropathy ([facility]) Dietary counseling and surveillance Dry eyes GERD (gastroesophageal reflux disease) Hypertension ([facility]) Lymphedema of both lower extremities 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 documented in this encounterSaint Louis [facility] [id number] Telephone encounter Note* Telephone Encounter - Mounika Brooke MD - 08/06/2024 10:26 AM EST Ok to send [facility] [id number] Miscellaneous Notes* Telephone Encounter - Mounika Brooke MD - 08/06/2024 10:26 AM EST Ok to send * Telephone Encounter - Cooper Bradford - 08/06/2024 8:48 AM EST [facility] called they need this information sent for to them for the Referral on the Hyperbaric Oxygen Treatment A1C, pvr, and last 30day of notes on the wound Please send to fax [phone] to [place] documented in this encounterSaint Louis [facility] Health [facility] [id number] Telephone encounter Note* Telephone Encounter - Cooper Bradford - 08/06/2024 8:48 AM EST [facility] called they need this information sent for to them for the Referral on the Hyperbaric Oxygen Treatment A1C, pvr, and last 30day of notes on the wound Please send to fax [phone] to [facility] [id number] NoteTime Out 07/22/2024. 3:03 PM. Confirmed correct patient, procedure, site, and patient consented. Anesthesia Topical anesthesia was used. Anesthetic medications included Proparacaine 0.5%. Procedure Preparation included 5% betadine to ocular surface. A 30 gauge needle was used. Injection: 0.3 mg ranibizumab 0.3 MG/0.05ML Route: Intravitreal, Site: Left Eye [facility]: 33434-255-23, Lot: [id number], Expiration date: 04/29/2026, Waste: 0 mL Post-op [...] increased pain, redness, decreased vision or concerns.[facility] [id number] History of Present illness Narrative* Perlita Meeks MD - 07/22/2024 2:15 PM EST Assessment/Plan documented in this encounterSaint Louis University Health Science CenterClghwmmxur84-23-1730 History of Present illness Narrative* Kayla Sweeney [...] twice a day. Blood sugar in our [id number]; A1C 11. SUBJECTIVE: MEDICATIONS: Current Outpatient Medications Medication Instructions albuterol HFA 90 mcg/act inhaler 2 puffs, Every 4 hours PRN atorvastatin (LIPITOR) 40 mg, Every 24 hours Continuous Blood Gluc Director Transportation (FreeStyle Sage 3 [place]) device 1 each, Does not apply, Continuous [...] History: Diagnosis Date Acute hypoxemic respiratory failure (CMS/HCC) Acute on chronic respiratory failure with hypercapnia (CMS/HCC) AMY (acute kidney injury) ([facility]) Arthritis Asthma ([facility]) Cataract Chronic kidney disease, stage 3b (HCC) ([facility]) Diabetes ([facility]) Diabetes mellitus with neuropathy ([facility]) Dry eyes GERD (gastroesophageal reflux disease) Hypertension ([facility]) Lymphedema of both lower extremities 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 ([facility]) Onychomycosis Pneumonia 06/19/2024 [facility] (pulmonary valve disease) Past Surgical History: [...] hyperglycemia, with long-term current use of insulin ([facility]) - POCT glucose manually resulted - insulin [...] exercise reviewed with the patient Hyperlipemia, mixed ([facility]) Primary hypertension ([facility]) Class 2 severe obesity due to excess calories with serious comorbidity and body mass index (BMI) of38.0 to 38.9 in adult ([facility]) Follow up in about 6 weeks (around 08/26/2024). documented in this encounterSaint Louis University Health Science CenterZysrhbfunf73-03-0001 History of Present illness Narrative* Mounika Brooke [...] Flowsheet Row Office Visit from 07/11/2024 in [facility] with Mounika Brooke MD Hospital Information ED, Hospital or Longterm Facility Discharge? ED Patient has been contacted within 1 week of being seen in the ED Yes Discharge Date 07/09/24 Discharged To: Home Setting Discharge [facility] Admission Date 07/09/24 Medications Discharge [...] Neurological: nonfocal Psych: mood/affect full range Assessment/Plan Nicoel was seen today for shoulder pain and [...] follow-ups on file. documented in this encounterSaint Louis University Health Science CenterZgfoomognc04-24-1682 Hospital Discharge instructions Patient Education 07/09/2024 16:21:24 [...] told by your health care provider. Take tnud-lun-kdwtcvz and prescription medicines only as told by [...] provider. Document Revised: 04/14/2022 Document Reviewed: 04/14/2022 [employer]ck Patient Education 2023 Dotted Block. Follow Up Care 07/09/2024 14:36:54 With:Zka Quiñones Address: [address] [place] [address]- Business (1) When:07/12/2024 16:10:31 [facility] 11-19-2024 NoteED Patient Education Note Orthopedics [...] by your health care provider. ??? Take euec-lxq-snsflhm and prescription medicines only as told by [...] (compression), and elevatingthe are (more content not included)...[facility]11-19-2024 Evaluation + Plan noteExtracted from: Title:ED Note Author:Jesus Grijalva PA-C te:07/09/24 Left shoulder pain (M25.512: Pain in left shoulder) Tendinitis (M77.9: Enthesopathy, unspecified) Ordered: acetaminophen-oxycodone, 1 tab(s), Oral, q6hr as needed for pain for 3 day(s), 10 tab(s), Refill(s) 0, [id number], 183, cm, 07/09/24 14:44:00 EST, Height/Length Dosing, 132.4, kg, 07/09/24 14:44:00 EST, Weight Dosing Orders: acetaminophen-oxycodone, 1 tab(s), Tab, Oral, Once, Stop date 07/09/24 15:01:00 EST, STAT, Start date 07/09/24 15:01:00 EST Apply Sling XR Shoulder Complete Right Future Appointments Appointment Date:09/04/2024 03:15:00 PM Scheduled Provider:Taz THOMAS MD Location:[facility] Appointment Type:URO Office Visit [facility] 11-13-2024 History of Present illness Narrative* [...] timestamp. Flowsheet Row Documentation from 06/25/2024 in [facility] with Mary Alice Fortune MA Hospital Information ED, Hospital or Longterm Facility Discharge? ED Patient has been contacted within 1 week of being seen in the ED Yes Diagnosis Pneumonia Discharge Date 06/23/24 Discharged To: Home Setting Discharge [facility] Admission Date 06/23/24 Medications Discharge [...] or fail to improve. documented in this encounterNOSalem Memorial District HospitalNuptvjtzkw38-26-3782 Telephone encounter Note* Telephone Encounter - HARPAL Barnes - 06/24/2024 11:07 AM EST Ok reviewed and we discussed at visit to try to get an earlier appt or talk with Dr. Murray staff [facility] [id number] Miscellaneous Notes* Telephone Encounter - HARPAL Barnes [...] soon as possible? documented in this encounterSaint Louis University Health Science [id number] Telephone encounter Note* Telephone Encounter - Suzanna Smith MA - 06/24/2024 10:28 AM EST Patient is currently scheduled to see Dr. Sweeney 07-15-2024. [facility] CenterDazdxfkmmi92-55-2105 Telephone encounter Note* Telephone Encounter - HARPAL Barnes - 06/24/2024 8:37 AM EST Please call patient I see he was in ER and diagnosed with pneumonia however his hgba1c was 14 and Iwanted to see if he made appt to see Dr. Murray as soon as possible? [facility] CenterKqubvyeynh34-79-7787 Hospital Discharge instructions Patient Education 06/23/2024 14:01:17 Community-Acquired Pneumonia, Adult, Joet-ro-Svqm Community-Acquired Pneumonia, Adult Pneumonia is an infection [...] Follow these instructions at home: Medicines Take cdna-qno-apsfchq and prescription medicines only as told by [...] cannot use soap and water, use hand cafe manager. Contact a doctor if: You have a [...] provider. Document Revised: 10/05/2022 Document Reviewed: 10/05/2022 [employer]ck Patient Education 2023 Dotted Block. 06/23/2024 14:01:17 Rib Contusion Rib Contusion A [...] risk for lung collapse and pneumonia. Medicines. Nsij-tqp-hgvirfy or prescription medicines may be given to control pain. Injection of a numbing medicine around the nerve near your injury (nerve block). Follow these instructions at home: Medicines Take evuy-fhj-bshshry and prescription medicines only as told by your health care provider. Ask your health care provider if the medicine prescribed to you: ?Requires you to avoid driving or using machinery. ?Can cause constipation. You may need to take these actions to prevent or treat constipation: ?Drink enough fluid to keep your urine pale yellow. ?Take xjlt-gyn-otzdtjl or prescription medicines. ?Eat foods that are [...] provider. Document Revised: 11/11/2020 Document Reviewed: 11/11/2020 [employer] Patient Education 2023 IceBreaker Follow Up Care 06/23/2024 13:38:04 With:Mounika Brooke Address: [address] [place] [address]- Business (1) When:06/26/2024 13:54:07 Comments:Call Dr for diagnosis based follow up [facility] 11-03-2024 NoteED Patient Education Note Infectious [...] these instructions at home: Medicines ??? Take lxpv-ejl-ilnfkzd and prescription medicines only as told by [...] cannot use soap and water, use hand cafe manager. Contact a doctor if: ??? You have [...] lungs. ??? Community-acquired pneumonia (more content not included)...[facility]11-03-2024 Evaluation + Plan noteExtracted from: Title:ED Note Author:Greyson ENGLE, Paddy Bustos te:06/23/24 Contusion of rib on left [facility] (S20.212A: Contusion of left front wall of thorax, initial encounter) Pneumonia (J18.9: Pneumonia, unspecified organism) Orders: acetaminophen-oxycodone, 1 tab(s), Oral, q6hr for pain for 3 day(s), 12 tab(s), Refill(s) 0, [id number], 183, cm, 06/23/24 13:45:00 EST, Height/Length Dosing, 143, kg, 06/23/24 13:45:00 EST, Weight Dosing doxycycline, 100 mg = 1 cap(s), Oral, BID, # 20 cap(s), Refills(s) 0, Pharmacy: [facility] #[id number], 183, cm, 06/23/24 13:45:00 EST, Height/Length Dosing, 143, kg, 06/23/24 13:45:00 EST, Weight Dosing Future Appointments Appointment Date:09/04/2024 03:15:00 PM Scheduled Provider:Taz THOMAS MD Location:[facility] Appointment Type:URO Office Visit [facility] 11-01-2024 History of Present illness Narrative* [...] He has an upcoming appointment with his boat washer, Dr. Sweeney. ALLERGIES He is allergic to PENICILLIN. MEDICATIONS: Current Outpatient Medications Medication Instructions albuterol HFA 90 mcg/act inhaler 2 puffs, Every 4 hours PRN atorvastatin (LIPITOR) 40 mg, Every 24 hours Continuous Blood Gluc Director Transportation (FreeStyle Sage 3 [place]) device 1 each, Does not apply, Continuous [...] He is advised to consult with his boat washer, Dr. Sweeney, regarding his elevated blood sugar [...] needles has been renewed and sent to [facility]. Assessment/Plan Problem List Items Addressed This Visit Chronic cough Relevant Orders XR chest 2 views Type 2 diabetes mellitus with hyperglycemia ([facility]) - Primary Relevant Medications pen needle 31G [...] Vaccine (1) 04/21/2024 documented in this encounterSaint Louis University Health Science [id number] NoteTime Out 05/22/2024. 2:41 PM. Confirmed correct patient, procedure, site, and patient consented. Anesthesia Topical anesthesia was used. Anesthetic medications included Lidocaine 2%, Proparacaine 0.5%. Procedure Preparation included 5% betadine to ocular surface, eyelid speculum. Injection: 0.3 mg ranibizumab 0.3 MG/0.05ML Route: Intravitreal, Site: Left Eye [facility]: 43585-105-34, Lot: [id number], Expiration date: 04/29/2026, Waste: 0 mL Post-op [...] increased pain, redness, decreased vision or concerns.[facility] Science CenterZjvquodlom21-07-3387 History of Present illness Narrative* PEDRO PABLO Her - 05/22/2024 2:00 PM EDT Images from the original note were not included. 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 Can we help with this [facility] CenterBnpthxrorz21-89-7458 Miscellaneous Notes* Telephone Encounter - Mounika Brooke MD - 04/29/2024 2:53 PM EDT Pt has at home oxygen - would benefit from portable oxygen. Can we help with this documented in this [facility]09-09-2024 History of Present illness Narrative* Mounika Brooke MD - 04/29/2024 2:52 PM EDTAssociated Problem(s): Hyperlipidemia (CMS/HCC) Stable, continue to monitor. No change in regimen. 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 Continuous Blood Gluc Director Transportation (FreeStyle Sage 3 [place]) device 1 each continuously 1 each 0 [...] retinopathy associated with type 2 diabetes mellitus ([facility]/HCC) Encouraged follow up with optho Diabetic neuropathy (CMS/HCC) Stable, continue to monitor. No change in regimen. Gastroesophageal reflux disease Stable, continue to monitor. No change in regimen. Hyperlipidemia (CMS/HCC) Stable, continue to monitor. No change in regimen. Hypertension (CMS/HCC) Stable, continue to monitor. No change in regimen. Long-term insulin use (CMS/HCC) Morbid obesity (CMS/HCC) - continue to monitor weight Restless leg syndrome Currently uncontrolled as pt is out of meds. Refill sent of increased dose Stage 3b chronic kidney disease (HCC) ([facility]) Stable, continue to monitor. No change in regimen. Type 2 diabetes mellitus with hyperglycemia ([facility]) - Uncontrolled, A1c > 13 - encouraged follow up with endo Varicose veins of lower extremity Continue to follow w/ vascular TC (obstructive sleep apnea) Stable, continue to monitor. No change in regimen. Chronic hypoxemic respiratory failure ([facility]) Stable, continue to monitor. No change in regimen. Acute on chronic respiratory failure with hypoxia and hypercapnia ([facility]) Stable, continue to monitor. No change in regimen. Discussed concerning sx to monitor for. Continue oxygen use - pt would benefit from portable oxygen Obesity hypoventilation syndrome ([facility]) Other Visit Diagnoses Encounter for Medicare annual wellness exam - Primary RLS (restless legs syndrome) Relevant Medications rOPINIRole (Requip) 2 MG tablet Oxygen dependent BMI 40.0-44.9, adult ([facility]) The following health maintenance schedule was reviewed [...] in this encounter. documented in this encounterSaint Louis University Health Science [id number] NoteTime Out 04/23/2024. 11:05 AM. Confirmed correct patient, procedure, site, and patient consented. Anesthesia Topical anesthesia was used. Anesthetic medications included Lidocaine 2%, Proparacaine 0.5%. Procedure Preparation included 5% betadine to ocular surface, eyelid speculum. Injection: 0.3 mg ranibizumab 0.3 MG/0.05ML Route: Intravitreal, Site: Left Eye [facility]: 17920-534-29, Lot: [id number], Expiration date: 04/29/2026, Waste: 0 mL Post-op [...] increased pain, redness, decreased vision or concerns.[facility] CenterNclhczjomc21-34-7035 History of Present illness Narrative* Perlita Meeks MD - 04/23/2024 10:45 AM EDT Assessment/Plan documented in this [facility]08-26-2024 History of Present illness Narrative* Perlita Meeks MD - 04/15/2024 2:30 PM EDT Assessment/Plan begin anti vegf documented in this [facility]07-10-2024 Hospital Discharge instructions Follow Up Care 02/28/2024 08:07:26 With:MARTHA LYMAN, Taz Abraham, URL Address: [address] [place] [address]- When: Unknown [facility] 07-10-2024 Hospital Discharge instructions Patient Education 02/28/2024 [...] urethra. Follow these instructions at home: Take ejsx-xdy-qzarojj and prescription medicines only as told by [...] provider. Document Revised: 02/23/2022 Document Reviewed: 02/23/2022 [employer] Patient Education 2022 Dotted Block. Follow Up Care 02/05/2024 13:59:39 With:MARTHA LYMAN, Taz Abraham, URL Address: [address] [place] [address] When: Unknown [facility] 06-17-2024 Hospital Discharge instructions Patient Education [...] Care 11/20/2023 14:00:17 With:Taz THOMAS Address: [address] Business (1) When: Unknown Comments:Please arrange for a follow-up next week so we can remove your catheter for a voiding trial.Some discharge instructions have been provided.Push fluids to keep the urine clear. [facility]06-17-2024 Note [id number]#1.00TIFLars [facility] 01-15-2024 Hospital Discharge instructions Patient Education 01/15/2024 [...] provider. Document Revised: 10/27/2021 Document Reviewed: 07/23/2021 [employer] Patient Education 2021 IceBreaker Follow Up Care 01/15/2024 16:18:08 With:REID BROOKE Address: [address] [place] [address] [place] [id number] [facility] (1) When:Within 3 Day(s) [facility]04-04-2024 NoteHNO ID: [id number] Author: ESAU TRUONG APRN.MO Service: ? Author Type: Nurse Specialist Type: Progress Notes Filed: 11/29/2023 07:04 Note Text: [facility] ALF NOTE NAME: N[facility] NO.: [id number] DATE OF SERVICE: 11/23/2023 ATTENDING PHYSICIAN: MO Yip [facility] Chart Note REASON FOR VISIT: The patient is a resident of [facility]. This is a skilled visit for COPD with respiratory failure history and other medical concerns. Upon entering the room, found the patient calm, alert, sitting in bed. The patient just completed morning meal. The patient does not appear to be in distress or discomfort. The patient states feels well today. States has been working with therapy and feels [...] sliding scale. DICTATED BY: MO Yip/SUSYT JOB# [id number] [facility]04-04-2024 History of Present illness Narrative* Esau Truong APRN.MO - 11/23/2023 12:00 AM EDT [facility] ALF NOTE NAME: NICOLE LORA [facility] NO.: [id number] DATE OF SERVICE: 11/23/2023 ATTENDING PHYSICIAN: MO Yip [facility] Chart Note REASON FOR VISIT: The patient is a resident of [facility]. This is a skilled visit for COPD with respiratory failure history and other medical concerns. [facility] found the patient calm, alert, sitting in [...] sliding scale. DICTATED BY: MO Yip/MARCIA JOB# [id number] [facility] documented in this [facility] Evaluation + Plan note Extracted from: Title:HOPD visit Author:MARTHA LYMAN, Taz Abraham Date: 11/20/23 Impression and Plan Assessment and Plan: Diagnosis: BPH with obstruction/lower urinary tract symptoms (RUW15-EE N40.1, Billing Diagnosis, Medical), Other obstructive and reflux uropathy (XZJ68-TV N13.8, Discharge, Medical), Feeling of incomplete bladder emptying (GQE81-RK R39.14, Billing Diagnosis, Medical), Urinary retention (HZR49-CI R33.9, Billing Diagnosis, Medical). Additional Plan of [...] Appointments Appointment Date:01/31/2024 10:30:00 AM Scheduled Provider: Location:[facility] Appointment Type:Urology CALL [facility] Appointment Date:02/05/2024 01:15:00 PM Scheduled Provider: Location:[facility] Appointment Type:Urology FT Future Scheduled Tests Radiology* XR Chest 2 Views 05/15/23 * XR Chest 2 Views 05/15/23 [facility]04-01-2024 NoteHNO ID: [id number] Author: ALVARO HERRERA, ? Service: ? Author Type: Physician Type: Progress Notes Filed: 11/22/2023 11:38 Note Text: [facility] NOTE NAME: NICOLE LORA [facility] NO.: [id number] DATE OF SERVICE: 11/20/2023 ATTENDING PHYSICIAN: Alvaro Herrera MD [facility] PATIENT HISTORY AND PHYSICAL: HISTORY OF PRESENT ILLNESS: The patient is a 63-year-old male, who is admitted to us from [place] with a diagnosis of altered mental status [...] with hypernatremia and hyperkalemia-we (more content not included)...[facility] 11-20-2023 [id number] [facility]04-01-2024 [id number]#1.00TIFF Rickey [facility]04-01-2024 History of Present illness Narrative* Alvaro Herrera - 11/20/2023 12:00 AM EDT [facility] ALF [id number] DATE OF SERVICE: 11/20/2023 ATTENDING PHYSICIAN: Alvaro Herrera MD [facility] PATIENT HISTORY AND PHYSICAL: HISTORY OF PRESENT ILLNESS: The patient is a 63-year-old male, who is admitted to us from [facility] with a diagnosis of altered [...] doeslive by himself. DICTATED BY: MD KORI Cho/AQT JOB# [id number] [facility] documented in this encounterSelect [facility]03-29-2024 Progress note Author Hood Zacarias [place] November 17, 2023 12:18pm Note Date/Time November 17, 2023 12: 18pm [facility] [address] [place] [address] Nephrology Progress Note Signed Patient: Nicole Lora MR#: [id number] [birth year] : 1960 Acct:[id number] Age/Sex: 63 / M Adm Date: 4 Loc: 4 Room: [address] [place] [address] Type: ADM IN Attending Dr: Manish Fu MD Copies to: ~ Date of Service: 11/17/2023 Subjective Subjective Narrative: This is a 63-year-old male with a medical history of CKD, DM, HTN, TC, COPD, CHF was transferred from [facility] for shortness of breath and hypercapnic respiratory failure. Patient was admitted at [place] on September 2023 for COPD and CHF. During hospitalization he wasalso found to have AMY on CKD due to the cardiorenal syndrome. His renal function improved with diuresis. Patient was also found to have urine retentionand had Elliott catheter. Patient was readmitted at [facility] and his diuretic regimen was adjusted. His labs in ER showed AMY with serum creatinine 4.9 mg/dL and hyperkalemia with serum potassium 5.3 mmol/L and anion gap of 18. Patient ABG showed pH 7.25 pCO2 58 oxygen saturation 57. He was placed on BiPAP briefly. Patient on arrival at [place] had ABG which showed pH 7.19, pCO2 [...] 96 Nasal Cannula 4 11/17/23 11:26 11/17/23 11:26 11/17/23 11:26 11/17/23 11:26 11/17/23 11:26 11/17/23 09:15 11/17/23 09:15 FiO2 40 11/17/23 00:50 [...] Mg/2 Ml Ampul.Neb) 0.5 mg INHALATION BID JIMMIE Stop: 11/12/24 20:59 Last Admin: 11/17/23 08:11 Dose: 0.5 mg Dextrose (Dextrose 50% In Water 25 Gm/50 Ml Syringe) 0 gm IV-PUSH PRN PRN PRN Reason: Hypoglycemia Stop: 11/10/24 20:56 Duloxetine HCl (Duloxetine 60 Mg Capsule.Dr) 60 mg PO DAILY [facility] Stop: 11/13/24 08:59 Last Admin: 11/17/23 09:13 Dose: 60 mg Gabapentin (Gabapentin 300 Mg Capsule) 300 mg PO QHS [facility] Stop: 11/14/24 21:59 Last Admin: 11/16/23 21:02 Dose: Not Given Glucose (Dextrose 40% Gel 15 Gm Tube) 0 gm PO PRN PRN PRN Reason: Hypoglycemia Stop: 11/10/24 20:56 Last Admin: 11/12/23 17:38 Dose: 30 gm Guaifenesin (Guaifenesin 600 Mg Tab.Er.12h) 1,200 mg PO BID [facility] Stop: 11/12/24 20:59 Last Admin: 11/17/23 09:13 Dose: 1,200 mg Hydralazine HCl (Hydralazine 10 Mg Tablet) 10 mg PO BID [facility] Stop: 11/12/24 20:59 Last Admin: 11/17/23 09:13 Dose: 10 mg Fluconazole (Diflucan) 200 mg in 100 mls @ 100 mls/hr IV Q24H [facility] Last Admin: 11/16/23 14:09 Dose: 100 mls/hr Ceftriaxone Sodium (Rocephin) 1 gm in 50 mls @ 100 mls/hr IV Q24H [facility] Last Admin: 11/16/23 13:20 Dose: 100 mls/hr Insulin Aspart (Insulin Aspart 300 Units/3 Ml Insuln.Pen) 0 units SUBCUT TID.WM.HS [facility]; Protocol Stop: 11/10/24 21:59 Last Admin: 11/17/23 09:13 Dose: Not Given Insulin Glargine (Insulin Glargine 300 Units/3 Ml Insuln.Pen) 35 units SUBCUT QHS [facility] Stop: 11/10/24 21:59 Last Admin: [...] <Electronically signed by MD Hood Zacarias> 11/17/23 [address] [facility] Work Phone: 1(899) 764-904203-28-2024 Progress note Author Manish Fu [place] November 16, 2023 2:26pm Note Date/Time November 16, 2023 1:4 2pm [facility] [address] [place] [address] Hospitalist Progress Note Signed Patient: Nicole Lora MR#: [id number] [birth year] : 1960 Acct:[id number] Age/Sex: 63 / M Adm Date: 4 Loc: 4 Room: [address] [place] [address] Type: ADM IN Attending Dr: Manish Fu MD Copies to: ~ Date of Service: 11/16/2023 Subjective Subjective Narrative: Mental status significantly improved today. Patient notes that he is feeling a lot better, and actually request to go home. I did explain that he has been admitted to the hospital multiple times and needs further care at assisted facility. He is agreeable to this plan [...] <Electronically signed by Manish Fu MD> 11/16/23 [address] [facility] Work Phone: 1(728) 658-720503-28-2024 Progress note Author Hood Zacarias [place] November 16, 2023 12:15pm Note Date/Time November 16, 2023 12: 15pm [facility] [address] [place] [address] Nephrology Progress Note Signed Patient: Nicole Lora MR#: [id number] [birth year] : 1960 Acct:[id number] Age/Sex: 63 / M Adm Date: 4 Loc: Room: [address] [place] [address] Type: ADM IN Attending Dr: Manish Fu MD Copies to: ~ Date of Service: 11/16/2023 Subjective Subjective Narrative: This is a 63-year-old male with a medical history of CKD, DM, HTN, TC, COPD, CHF was transferred from [facility] for shortness of breath and hypercapnic respiratory failure. Patient was admitted at [place] on September 2023 for COPD and CHF. During hospitalization he wasalso found to have AMY on CKD due to the cardiorenal syndrome. His renal function improved with diuresis. Patient was also found to have urine retentionand had Elliott catheter. Patient was readmitted at [facility] and his diuretic regimen was adjusted. His labs in ER showed AMY with serum creatinine 4.9 mg/dL and hyperkalemia with serum potassium 5.3 mmol/L and anion gap of 18. Patient ABG showed pH 7.25 pCO2 58 oxygen saturation 57. He was placed on BiPAP briefly. Patient on arrival at [place] had ABG which showed pH 7.19, pCO2 [...] / 350 100 / 100 Output Total 2075 / 2075 3825 / 3825 5550 / 5550 1175 [...] 3 Ml Ampul.Neb) 3 ml INHALATION QID.RESP [facility] Stop: 11/12/24 19:59 Last Admin: 11/16/23 11:42 Dose: 3 ml Atorvastatin Calcium (Atorvastatin 40 Mg Tablet) 40 mg PO QHS [facility] Stop: 11/12/24 21:59 Last Admin: 11/15/23 21:12 Dose: 40 mg Budesonide (Budesonide 0.5 Mg/2 Ml Ampul.Neb) 0.5 mg INHALATION BID [facility] Stop: 11/12/24 20:59 Last Admin: 11/16/23 07:40 Dose: 0.5 mg Dextrose (Dextrose 50% In Water 25 Gm/50 Ml Syringe) 0 gm IV-PUSH PRN PRN PRN Reason: Hypoglycemia Stop: 11/10/24 20:56 Duloxetine HCl (Duloxetine 60 Mg Capsule.Dr) 60 mg PO DAILY [facility] Stop: 11/13/24 08:59 Last Admin: 11/16/23 09:08 Dose: 60 mg Gabapentin (Gabapentin 300 Mg Capsule) 300 mg PO QHS [facility] Stop: 11/14/24 21:59 Last Admin: 11/15/23 21:13 Dose: 300 mg Glucose (Dextrose 40% Gel 15 Gm Tube) 0 gm PO PRN PRN PRN Reason: Hypoglycemia Stop: 11/10/24 20:56 Last Admin: 11/12/23 17:38 Dose: 30 gm Guaifenesin (Guaifenesin 600 Mg Tab.Er.12h) 1,200 mg PO BID [facility] Stop: 11/12/24 20:59 Last Admin: 11/16/23 09:08 Dose: 1,200 mg Hydralazine HCl (Hydralazine 10 Mg Tablet) 10 mg PO BID [facility] Stop: 11/12/24 20:59 Last Admin: 11/16/23 09:08 Dose: 10 mg Fluconazole (Diflucan) 200 mg in 100 mls @ 100 mls/hr IV Q24H [facility] Last Admin: 11/15/23 18:00 Dose: 100 mls/hr Ceftriaxone Sodium (Rocephin) 1 gm in 50 mls @ 100 mls/hr IV Q24H [facility] Insulin Aspart (Insulin Aspart 300 Units/3 Ml Insuln.Pen) 0 units SUBCUT TID.WM.HS [facility]; Protocol Stop: 11/10/24 21:59 Last Admin: 11/16/23 09:08 Dose: Not Given Insulin Glargine (Insulin Glargine 300 Units/3 Ml Insuln.Pen) 35 units SUBCUT QHS [facility] Stop: 11/10/24 21:59 Last Admin: 11/15/23 21:14 [...] DAILY [facility] Stop: 11/13/24 08:59 Last Admin: 11/16/23 09:07 Dose: 40 mg Sennosides (Sennosides 8.6 Mg Tablet) 1 tab PO BID [facility] Stop: 11/10/24 20:59 Last Admin: 11/16/23 09:07 Dose: 1 tab Tamsulosin HCl (Tamsulosin 0.4 Mg Cap.Er.24h) 0.4 mg PO DAILY [facility] Stop: 11/13/24 08:59 Last Admin: 11/16/23 09:08 Dose: 0.4 mg Torsemide (Torsemide 20 Mg Tablet) 40 mg PO DAILY@0800 [facility] Stop: 11/13/24 09:44 Last Admin: 11/16/23 09:08 [...] placement. Documented By: Hood Zacarias MD 11/16/23 1206 Signed By: <Electronically signed by MD Hood Zacarias> 11/16/23 1359 [facility] Work Phone: 1(364) 110-212603-27-2024 Progress note Author Hood Zacarias [place] March 27th, 2024 1:58pm Note Date/Time November 15, 2023 1:5 8pm [facility] [address] [place] [address] Nephrology Progress Note Signed Patient: Nicole Lora MR#: [id number] [birth year] : 1960 Acct:[id number] Age/Sex: 63 / M Adm Date: 4 Loc: Room: [address] [place] [address] Type: ADM IN Attending Dr: Manish Fu MD Copies to: ~ Date of Service: 11/15/2023 Subjective Subjective Narrative: This is a 63-year-old male with a medical history of CKD, DM, HTN, TC, COPD, CHF was transferred from [facility] for shortness of breath and hypercapnic respiratory failure. Patient was admitted at [place] on September 2023 for COPD and CHF. During hospitalization he wasalso found to have AMY on CKD due to the cardiorenal syndrome. His renal function improved with diuresis. Patient was also found to have urine retentionand had Elliott catheter. Patient was readmitted at [facility] and his diuretic regimen was adjusted. His labs in ER showed AMY with serum creatinine 4.9 mg/dL and hyperkalemia with serum potassium 5.3 mmol/L and anion gap of 18. Patient ABG showed pH 7.25 pCO2 58 oxygen saturation 57. He was placed on BiPAP briefly. Patient on arrival at [place] had ABG which showed pH 7.19, pCO2 [...] QID.RESP JIMMIE Stop: 11/12/24 19:59 Last Admin: 11/15/23 11:28 Dose: 3 ml Atorvastatin Calcium (Atorvastatin 40 Mg Tablet) 40 mg PO QHS [facility] Stop: 11/12/24 21:59 Last Admin: 11/14/23 21:10 Dose: 40 mg Budesonide (Budesonide 0.5 Mg/2 Ml Ampul.Neb) 0.5 mg INHALATION BID [facility] Stop: 11/12/24 20:59 Last Admin: 11/15/23 09:00 Dose: 0.5 mg Dextrose (Dextrose 50% In Water 25 Gm/50 Ml Syringe) 0 gm IV-PUSH PRN PRN PRN Reason: Hypoglycemia Stop: 11/10/24 20:56 Duloxetine HCl (Duloxetine 60 Mg Capsule.Dr) 60 mg PO DAILY [facility] Stop: 11/13/24 08:59 Last Admin: 11/15/23 08:14 Dose: 60 mg Gabapentin (Gabapentin 300 Mg Capsule) 300 mg PO QHS [facility] Stop: 11/14/24 21:59 Glucose (Dextrose 40% Gel 15 Gm Tube) 0 gm PO PRN PRN PRN Reason: Hypoglycemia Stop: 11/10/24 20:56 Last Admin: 11/12/23 17:38 Dose: 30 gm Guaifenesin (Guaifenesin 600 Mg Tab.Er.12h) 1,200 mg PO BID [facility] Stop: 11/12/24 20:59 Last Admin: 11/15/23 08:14 Dose: 1,200 mg Hydralazine HCl (Hydralazine 10 Mg Tablet) 10 mg PO BID [facility] Stop: 11/12/24 20:59 Last Admin: 11/15/23 08:14 Dose: 10 mg Fluconazole (Diflucan) 200 mg in 100 mls @ 100 mls/hr IV Q24H [facility] Insulin Aspart (Insulin Aspart 300 Units/3 Ml Insuln.Pen) 0 units SUBCUT TID.[facility]; Protocol Stop: 11/10/24 21:59 Last Admin: 11/15/23 08:15 Dose: Not Given Insulin Glargine (Insulin Glargine 300 Units/3 Ml Insuln.Pen) 35 units SUBCUT QHS [facility] Stop: 11/10/24 21:59 Last Admin: 11/14/23 21:10 [...] 20 Mg Tablet) 40 mg PO DAILY@0800 [facility] Stop: 11/13/24 09:44 Last Admin: 11/15/23 08:14 [...] Urine culture from Elliott catheter showed Enterobacter [place] complex and Kaelyn albicans. Patient has indwelling Elliott catheter and he is supposed to follow-up with urology for cystometric and cystoscopy as outpatient. * Check renal function daily monitor input output Documented By: Hood Zacarias MD 11/15/231353 Signed By: <Electronically signed by MD Hood Zacarias> 11/15/23 7488 [facility] Work Phone: 1(781) 280-458903-27-2024 Progress note Author Manish Fu [place] November 15, 2023 1:27pm Note Date/Time November 15, 2023 12: 20pm [facility] [address] [place] [address] Hospitalist Progress Note Signed Patient: Nicole Lora MR#: [id number] [birth year] : 1960 Acct:[id number] Age/Sex: 63 / M Adm Date: 4 Loc: Room: [address] [place] [address] Type: ADM IN Attending Dr: Manish Fu [...] Ml Insuln.Pen SUBCUT 11/10/24 21:59 Not Given TID.[facility] Protocol Insulin Glargine 35 units 11/11/23 22:00 [...] signed by Manish Fu MD> 11/15/23 1327 [facility] Work Phone: 1([phone]) 542-153003-26-2024 Progress note Author Manish Fu [place] November 14, 2023 8:19pm Note Date/Time November 14, 2023 8:0 8pm [facility] [address] [place] [address] Hospitalist Progress Note Signed Patient: Nicole Lora MR#: [id number] [birth year] : 1960 Acct:[id number] Age/Sex: 63 / M Adm Date: 4 Loc: 4 Room: [address] [place] [address] Type: ADM IN Attending Dr: Manish Fu [...] Insuln.Pen SUBCUT 11/10/24 21:59 Not Given TID.WM.[facility] Protocol Insulin Glargine 35 units 11/11/23 22:00 [...] <Electronically signed by Manish Fu MD> 11/14/232018 [facility] Work Phone: 1([phone]) 188-573303-26-2024 Progress note Author Hood Zacarias [place] November 14, 2023 1:34pm Note Date/Time November 14, 2023 1:3 4pm [facility] [address] [place] [address] Nephrology Progress Note Signed Patient: Nicole Lora MR#: [id number] [birth year] : 1960 Acct:[id number] Age/Sex: 63 / M Adm Date: 4 Loc: Room: [address] [place] [address] Type: ADM IN Attending Dr: Manish Fu MD Copies to: ~ Date of Service: 11/14/2023 Subjective Subjective Narrative: This is a 63-year-old male with a medical history of CKD, DM, HTN, TC, COPD, CHF was transferred from [facility] for shortness of breath and hypercapnic respiratory failure. Patient was admitted at [place] on September 2023 for COPD and CHF. During hospitalization he wasalso found to have AMY on CKD due to the cardiorenal syndrome. His renal function improved with diuresis. Patient was also found to have urine retentionand had Elliott catheter. Patient was readmitted at [facility] and his diuretic regimen was adjusted. His labs in ER showed AMY with serum creatinine 4.9 mg/dL and hyperkalemia with serum potassium 5.3 mmol/L and anion gap of 18. Patient ABG showed pH 7.25 pCO2 58 oxygen saturation 57. He was placed on BiPAP briefly. Patient on arrival at [place] had ABG which showed pH 7.19, pCO2 [...] Mg/2 Ml Ampul.Neb) 0.5 mg INHALATION BID [facility] Stop: 11/12/24 20:59 Last Admin: 11/14/23 07:35 Dose: 0.5 mg Dextrose (Dextrose 50% In Water 25 Gm/50 Ml Syringe) 0 gm IV-PUSH PRN PRN PRN Reason: Hypoglycemia Stop: 11/10/24 20:56 Duloxetine HCl (Duloxetine 60 Mg Capsule.) 60 mg PO DAILY [facility] Stop: 11/13/24 08:59 Last Admin: 11/14/23 08:10 Dose: 60 mg Glucose (Dextrose 40% Gel 15 Gm Tube) 0 gm PO PRN PRN PRN Reason: Hypoglycemia Stop: 11/10/24 20:56 Last Admin: 11/12/23 17:38 Dose: 30 gm Guaifenesin (Guaifenesin 600 Mg Tab.Er.12h) 1,200 mg PO BID [facility] Stop: 11/12/24 20:59 Last Admin: 11/14/23 08:10 Dose: 1,200 mg Hydralazine HCl (Hydralazine 10 Mg Tablet) 10 mg PO BID [facility] Stop: 11/12/24 20:59 Last Admin: 11/14/23 08:10 Dose: 10 mg Ceftriaxone Sodium (Rocephin) 2 gm in 50 mls @ 100 mls/hr IV Q24H [facility] Stop: 11/15/23 08:29 Last Admin: 11/14/23 08:11 Dose: 100 mls/hr Insulin Aspart (Insulin Aspart 300 Units/3 Ml Insuln.Pen) 0 units SUBCUT TID.WM.[facility]; Protocol Stop: 11/10/24 21:59 Last Admin: 11/14/23 12:41 Dose: Not Given Insulin Glargine (Insulin Glargine 300 Units/3 Ml Insuln.Pen) 35 units SUBCUT QHS [facility] Stop: 11/10/24 21:59 Last Admin: [...] 4 mg Pantoprazole Sodium (Pantoprazole 40 Mg Tablet.) 40 mg PO DAILY [facility] Stop: 11/13/24 [...] Urine culture from Elliott catheter showed Enterobacter [place] complex and Kaelyn albicans. * Continue Elliott care for now. Will give a trial of void with bladder scan once renal function stabilizes diuretics. * Check renal function daily monitor input output Documented By: Hood Zacarias MD 11/14/231329 Signed By: <Electronically signed by MD Hood Zacarias> 11/14/233 [facility] Work Phone: 1(219) 996-450503-25-2024 Progress note Author Manish Fu [place] November 13, 2023 7:32pm Note Date/Time November 13, 2023 5:3 5pm [facility] [address] [place] [address] Hospitalist Progress Note Signed with Addenda Patient: Nicole Lora MR#: [id number] [birth year] : 1960 Acct:[id number] Age/Sex: 63 / M Adm Date: 4 Loc: Room: 6K8706-9 Type: ADM IN Attending Dr: Manish Fu [...] Ml Insuln.Pen SUBCUT 11/10/24 21:59 Not Given TID.[facility] Protocol Insulin Glargine 35 units 11/11/23 22:00 [...] signed by Manish Fu MD> 11/13/23 [facility] Work Phone: 1(813) 191-417603-25-2024 Progress note Author Hood Zacarias [place] November 13, 2023 2:24pm Note Date/Time November 13, 2023 2:2 4pm [facility] [address] [place] [address] Nephrology Progress Note Signed Patient: Nicole Lora MR#: [id number] [birth year] : 1960 Acct:[id number] Age/Sex: 63 / M Adm Date: 4 Loc: Room: [address] [place] [address] Type: ADM IN Attending Dr: Manish Fu MD Copies to: ~ Date of Service: 11/13/2023 Subjective Subjective Narrative: This is a 63-year-old male with a medical history of CKD, DM, HTN, TC, COPD, CHF was transferred from [facility] for shortness of breath and hypercapnic respiratory failure. Patient was admitted at [place] on September 2023 for COPD and CHF. During hospitalization he wasalso found to have AMY on CKD due to the cardiorenal syndrome. His renal function improved with diuresis. Patient was also found to have urine retentionand had Elliott catheter. Patient was readmitted at [facility] and his diuretic regimen was adjusted. His labs in ER showed AMY with serum creatinine 4.9 mg/dL and hyperkalemia with serum potassium 5.3 mmol/L and anion gap of 18. Patient ABG showed pH 7.25 pCO2 58 oxygen saturation 57. He was placed on BiPAP briefly. Patient on arrival at [place] had ABG which showed pH 7.19, pCO2 [...] 50 mls @ 100 mls/hr IV Q24H [facility] Stop: 11/15/23 08:29 Last Admin: 11/13/23 09:17 Dose: 100 mls/hr Insulin Aspart (Insulin Aspart 300 Units/3 Ml Insuln.Pen) 0 units SUBCUT TID.[facility]; Protocol Stop: 11/10/24 21:59 Last Admin: 11/13/23 14:08 Dose: Not Given Insulin Glargine (Insulin Glargine 300 Units/3 Ml Insuln.Pen) 35 units SUBCUT QHS [facility] Stop: 11/10/24 21:59 Last Admin: [...] 8.6 Mg Tablet) 1 tab PO BID [facility] Stop: 11/10/24 20:59 Last Admin: 11/13/23 09:00 Dose: Not Given Allergies Penicillins Allergy (Verified 10/06/23 20:32) Rash Results - Nephrology Labs 11/13/23 09:11 11/13/23 09:11 Labs: 11/13/23 09:11 BUN 87 H Creatinine 3.26 H D Albumin 3.5 Radiology Impressions Impressions - last 24 hours: Impressions Chest X-Ray 11/12/23 13:41 IMPRESSION: Stable findings Impression dictated by: Migue Wild M.D.11/12/2023 2:47 PM Dictation Location: [place] [address] Any impression(s) listed above is documentation that [...] Urine culture from Elliott catheter showed Enterobacter [place] complex and Kaelyn albicans. * Continue DM management as per the primary hospitalist team. The goal of blood sugar is 100 to 150 mg/dL. * Continue Elliott care. * Check renal function daily monitor input output Documented By: Hood Zacarias MD 11/13/23 1412 Signed By: <Electronically signed by MD Hood Zacarias> 11/13/23 1424 [facility] Work Phone: 1(559) 372-605603-24-2024 Progress note Author Durga Loza [place] November 12, 2023 1:45pm Note Date/Time November 12, 2023 1:4 5pm [facility] [address] [place] [address] Hospitalist Progress Note Signed Patient: Nicole Lora MR#: [id number] [birth year] : 1960 Acct:[id number] Age/Sex: 63 / M Adm Date: 4 Loc: Room: [address] [place] [address] Type: ADM IN Attending Dr: Durga Loza [...] was arousable and talking in right sentences. [facility] computer system was down socx-ray [...] who says that the patientwas admitted to [facility] roughly 1 week later after discharge from our facility and there was some adjustments to his diuretic therapy howevershe is not sure what the new medication was, medication list received from [facility] emergency room note shows Lasix 40 [...] leaking at home for a while. At [facility] he did receive 2 L of IV fluids and then subsequently transferred here for a nephrologyconsult. His labs at [facility] were notable for BUN of 76 [...] Insuln.Pen SUBCUT 11/10/24 21:59 3 units TID.WM.[facility] Administration Protocol Insulin Aspart 12 units 11/12/23 07:30 11/12/23 11:57 Insulin Aspart 300 Units/3 Ml Insuln.Pen 0.083 units/kg (12 units) 11/11/24 07:29 12 units SUBCUT Administration TID.AC [facility] Insulin Glargine 35 units 11/11/23 [...] Daughter, Davin see can be reached at [phone] Documented By: Durga Loza MD 11/12/231341 Signed By: <Electronically signed by Durga Loza MD> 11/12/23 3093 [facility] Work Phone: 1(656) 211-719703-24-2024 Consult note Author Bladimir Story [place] November 12, 2023 11:53am Note Date/Time November 12, 2023 11: 31am [facility] [address] [place] [address] Nephrology Consult Note Signed Patient: Nicole Lora MR#: [id number] [birth year] : 1960 Acct:[id number] Age/Sex: 63 / M Adm Date: 4 Loc: Room: [address] [place] [address] Type: ADM IN Attending Dr: Durga Loza MD Copies to: MD Mounika Limon MD, MD~ Providers Consult Date: 11/12/23 Requesting Provider: Durga Loza MD Primary Care Provider: Mounika Brooke MD HPI Reason for Consult: AMY on CKD History of Present Illness: This is a 63-year-old male with a medical history of CKD, DM, HTN, TC, COPD, CHF was transferred from [facility] for shortness of breath and hypercapnic respiratory failure. Patient was admitted at [facility] 2023 for COPD and CHF. During hospitalization he was also found to have AMY on CKD due to the cardiorenal syndrome. His renal function improved with diuresis. Patient was also found to have urine retentionand had Elliott catheter. Patient was readmitted at [facility] and his diuretic regimen was adjusted. His labs in ER showed MAY with serum creatinine 4.9 mg/dL and hyperkalemia with serum potassium 4.3 mmol/L and anion gap of 18. Patient ABG showed pH 7.25 pCO2 58 oxygen saturation 57. He was placed on BiPAP briefly. Patient on arrival at [place] had ABG which showed pH 7.19, pCO2 [...] polydipsia Dermatological: denies any itching or rash [facility] Medical History (Updated 11/12/23 @ 11:27 [...] 5,000 Unit/Ml Vial) 5,000 unit SUBCUT Q8HR [facility] Stop: 11/10/24 21:59 Last Admin: 11/12/23 07:27 Dose: Not Given Ceftriaxone Sodium (Rocephin) 2 gm in 50 mls @ 100 mls/hr IV Q24H [facility] Stop: 11/15/23 08:29 Last Admin: 11/12/23 10:17 Dose: 100 mls/hr Insulin Aspart (Insulin Aspart 300 Units/3 Ml Insuln.Pen) 0 units SUBCUT TID.WM.[facility]; Protocol Stop: 11/10/24 21:59 Last Admin: 11/12/23 10:16 Dose: 2 units Insulin Aspart (Insulin Aspart 300 Units/3 Ml Insuln.Pen) 12 units 0.083 units/kg (12 units) SUBCUT TID.AC [facility] Stop: 11/11/24 07:29 Last Admin: 11/12/23 10:16 Dose: 12 units Insulin Glargine (Insulin Glargine 300 Units/3 Ml Insuln.Pen) 35 units SUBCUT QHS [facility] Stop: 11/10/24 21:59 Last Admin: [...] 8.6 Mg Tablet) 1 tab PO BID [facility] Stop: 11/10/24 20:59 Last Admin: [...] Skin: No rashes , warm to touch LEARNING AND DEVELOPMENT INTERN: Awake,Alert, following simple command Musculoskeletal: No swelling or limitation of movement of the large joints Psychiatric: Cooperative, normal mood and affect Results - Nephrology Labs 11/12/23 04:54 11/12/23 04:54 Labs: 11/11/23 11/11/23 11/12/23 19:27 22:20 04:54 BUN 78 H 80 H Creatinine 4.63 H 4.44 H Albumin 3.4 L Urine Color [place] A Urine Appearance Turbid A Urine pH 5.0 Ur Specific [place] 1.017 Urine Protein 100 H Urine Glucose [...] <Electronically signed by Bladimir Story MD> 11/12/23 1782 [facility] Work Phone: 1([phone]) 343-232703-23-2024 History and physical note Author Tera Nevarez [place] November 11, 2023 9:06pm Note Date/Time November 11, 2023 8:0 3pm [facility] [address] [place] [address] Hospitalist H&P Signed with Addenda Patient: Nicole Lora MR#: [id number] 29 : 1960 Acct:[id number] Age/Sex: 63 / M Adm Date: 4 Loc: Room: [address] [place] [address] Type: ADM IN Attending Dr: Tera Nevarez DO Copies to: Mounika Nevarez DO~ ADDENDUM1 Please add urinary tract infection [...] [facility] with [facility] [...] who says that the patientwas admitted to [facility] roughly 1 week later after discharge from our facility and there was some adjustments to his diuretic therapy howevershe is not sure what the new medication was, medication list received from [facility] emergency room note shows Lasix 40 [...] leaking at home for a while. At [facility] he did receive 2 L of IV fluids and then subsequently transferred here for a nephrologyconsult. His labs at [facility] were notable for BUN of 76 [...] negative unless noted below or in HPI [facility] Medical History (Updated 11/11/23 @ 20:47 [...] Values Corrected WBC 7.3 X10E3/uL (4.1-10.5) 11/11/23 19: Uncorrected WBC Count 7.3 x10E3/uL (4.1-10.5) 11/11/23 19: RBC 4.57 X10E6/uL (3.90-5.60) 11/11/23 19: Hgb 12.0 g/dL (13.0-17.0) L 11/11/23 19: Hct 38.8 % (38.8-50.0) 11/11/23 19: MCV 84.9 fl (83.5-101) 11/11/23 19: MCH 26.2 pg (27.5-35.2) L 11/11/23 19: MCHC 30.9 g/dL (32.5-35.6) L 11/11/23 19: RDW 18.9 % (12.0-14.8) H 11/11/23 19: Plt Count 237 x10E3/uL (150-450) 11/11/23 19: MPV 7.0 fl (6.6-10.1) 11/11/23 19: Neut % (Auto) 73.6 % (.) 11/11/23 19: Lymph % (Auto) 14.5 % (.) 11/11/23 19: [place] % (Auto) 9.1 % (.) 11/11/23 19: Eos % (Auto) 2.1 % (.) 11/11/23 19: Baso % (Auto) 0.7 % (.) 11/11/23 19: Nucleat RBC Rel Count 0.1 /100 WBC (0-0.5) 11/11/23 19: Neut # (Auto) 5.4 x10E3/uL (1.8-7.7) 11/11/23 19: Lymph # (Auto) 1.1 x10E3/uL (1.00-4.8) 11/11/23 19: [place] # (Auto) 0.7 x10E3/uL (0.0-0.8) 11/11/23 19: Eos # (Auto) 0.2 x10E3/uL (0.0-0.45) 11/11/23 19: Baso # (Auto) 0.0 x10E3/uL (0.0-0.2) 11/11/23 19: Lactic Acid 0.8 mmol/L (0.5-2.2) 11/11/23 19:27 Assessment & Plan Assessment/Plan (1) Acute kidney [...] daughter, Davin she can be reached at [phone] IP vs OBS Justification Based on differential [...] <Electronically signed by Tera Nevarez DO> 11/11/232052 [facility] Work Phone: 1(195) 780-458703-23-2024 Evaluation + Plan noteExtracted from: Title:ED Note [...] Appointments Appointment Date:11/16/2023 09:00:00 AM Scheduled Provider: Location:[facility] Appointment Type:Urology CALL PAT Appointment Date:11/20/2023 12:00:00 PM Scheduled Provider: Location:[facility] Appointment Type:Urology FT Appointment Date:11/20/2023 01:15:00 PM Scheduled Provider: Location:[facility] Appointment Type:Urology FT Diagnostic Tests Pending * Blood Culture Charcoal 11/11/23 * Blood Culture Charcoal 11/11/23 * Urine Culture 11/11/23 Future Scheduled Tests Radiology* XR Chest 2 Views 05/15/23 * XR Chest 2 Views 05/15/23 [facility]03-11-2024 Evaluation + Plan noteExtracted from: Title:ED Note Author:Staci Beck DO Date :10/30/23 Complication of Elliott cathet er (T83.9XXA: Unspecified complication of genitourinary prosthetic device, implant and graft, initial encounter) Future Appointments Appointment Date:11/01/2023 02:00:00 PM Scheduled Provider: Location:[facility] Appointment Type:URO Nurse Visit Appointment Date:11/16/2023 09:00:00 AM Scheduled Provider: Location:[facility] Appointment Type:Urology CALL PAT FT Appointment Date:11/20/2023 12:00:00 PM Scheduled Provider: Location:[facility] Appointment Type:Urology FT Appointment Date:11/20/2023 01:15:00 PM Scheduled Provider: Location:[facility] Appointment Type:Urology FT Future Scheduled Tests Radiology* XR Chest 2 Views 05/15/23 * XR Chest 2 Views 05/15/23 [facility]03-11-2024 Hospital Discharge instructions Patient Education 10/30/2023 [...] bag. Secure the leg bag according to meat stringer's instructions. This may be above or below [...] on each side. Do this in a [id number]-[id number] direction. ?If you are male: ?Use one [...] Clean the drainage bag according to the meat stringer's instructions or as told byyour health care [...] and water are not available, use hand cafe manager. Always make sure there are no twists, [...] provider. Document Revised: 04/07/2022 Document Reviewed: 04/07/2022 [employer] Patient Education 2022 Dotted Block. Follow Up Care 10/30/2023 05:10:48 With:Taz THOMAS Address: [facility] LILIAM HORN [address] [address] Business (1) When:11/02/2023 05:21:06 Comments:Follow-up with urology for further evaluation and management. Please return to the ED for any new or worsening symptoms. With:REID BROOKE Address: [address] [address] Business (1) When:Within 3 Day(s) [facility]03-09-2024 NoteHNO ID: [id number] Author: JOHN SPANN, RAFAEL Service: ? Author Type: Registered Nurse Type: Progress Notes Filed: 10/28/2023 13:45 Note Text: Patient given discharge instructions and printed AVS summary. Medications reviewed in detail including next dose due, indication, and side effects. CHF management including symptoms to report reviewed. All questions answered. IV access discontinued, heart monitor off, and valuables packed by patient. PAPER HANDLER medications with patient. Awaiting daughter to transport patient home.[id number] NoteHNO ID: [id number] Author: GÓMEZ OLIVA LSW Service: Care Management Author Type: Tumbler Plater Type: Care Mgt Progress Note Filed: 10/28/2023 12:15 Note Text: CARE MANAGEMENT DISCHARGE NOTE SERVICE DATE: October 28, 2023 SERVICE TIME: 12:14 PM Admission Date: 10/23/2023 LOS: 4 days Discharge Arrangement Discharge Arrangement: Home with Home Health Services Arranged Medical Services: Skilled Home Health Care Type: Longterm, Physical Therapy, Occupational Therapy Caregiver Assessment Caregiver is ready, willing and able to meet the patient's needs as recommended by the inter-professional team: Yes Name of Caregiver: [facility] Transportation Arrangements Transportation Arrangements: Car Handoff Communication: Additional Information: Discharge Information Row Name ED to Hosp-Admission (Current) from 10/23/[address] [facility] Patient will be d/c home with HHC from [facility] with a SOC date in 24 to 48 hours. Patient will transported home via family auto. SIGNATURE: JACK Posada PATIENT NAME: Nicole Lora DATE: October 28, 2023 TIME: 12:14 PM CONTACT #: [phone] History of Past illness Narrative* Problem Noted Date Diagnosed Date Resolved Date Acute on chronic respiratory failure with hypoxemia 10/28/2023 Last Assessment & Plan: See fluid overload documented as of this encounter (statuses as of 10/31/2023) [facility]03-09-2024 History of Past illness Narrative* Problem Noted Date Diagnosed Date Resolved Date Acute on chronic respiratory failure with hypoxemia 10/28/2023 Last Assessment & Plan: See fluid overload documented as of this encounter (statuses as of 11/22/2023) [facility]03-09-2024 History of Past illness Narrative* Problem Noted Date Diagnosed Date Resolved Date Acute on chronic respiratory failure with hypoxemia 10/28/2023 Last Assessment & Plan: See fluid overload documented as of this encounter (statuses as of 11/29/2023) [facility]03-09-2024 NoteHNO ID: [id number] Author: NAUN COUCH MD Service: Nephrology Author [...] 93%. Intake/Output Summary (Last 24 hours) at 10/28/2023836 Last data filed at 10/27/20232019 Gross per 24 hour Intake -- Output 2500 ml Net -2500 ml Chest: Clear to auscultation bilaterally. Heart: RRR, normal S1 and S2. No murmurs, galop or rubs. Abdomen: Soft lax, no tenderness or rebound tenderness, no hepatosplenomegaly, BS +. Lower limbs: +1 edema, distal pulses were palpable. LEARNING AND DEVELOPMENT INTERN: Conscious, Alert AND Orientedx3, fluent speech, intact concentration, no focal motor deficit is seen. DATA: Diagnostic tests reviewed for today's visit: CBC, Coags, BMP, Mg, Phos Recent Labs 10/28/2344110/27/23 0510/26/23 0601 WBC 5.94 5.87 6.49 HB 12.3* [...] Liver Function, Amylase, AND Lipase Recent Labs 10/28/2344110/27/23 0518 10/26/23 0601 TPROT -- 6.3 -- [...] amputation admitted from home who presented to [facility] with complaints of worsening shortness of breath, bilateral lower extremity edema and ~ 10lb weight gain in the last few weeks. Patient reports multiple hospital admissions in 2023 at [facility] in [place] for fluid overload. He states he usually [...] daily - trending alkalosis Given diamox -HTN PAPER HANDLER Hydralazine 75 mg q12 hours -> decreased to 10 mg TID Isordil on hold, Continue to trend Can be discharged from nephrology standpoint Re-educated patient on fluid restriction, daily weight Follow up in office in 2-3 weeks Plan of care discussed with: Provider, RN, Patient Naun Couch MD [facility] October 28, 2023 8:37 AM [phone] NoteHNO ID: [id number] Author: NOTE, INTERFACE, ? Service: ? Author Type: ? Type: Progress Notes Filed: 10/28/2023 03:39 Note Text: Epic Scheduled Downtime: 10/28/2023 1:00:00 AM to 10/28/2023 3:24:00 [facility]03-08-2024 NoteHNO ID: [id number] Author: GÓMEZ OLIVA LSW Service: Care Management Author Type: Tumbler Plater Type: Care Mgt Progress Note Filed: 10/27/2023 13:20 Note Text: CARE MANAGEMENT PROGRESS NOTE SERVICE DATE: 10/27/2023 SERVICE TIME: 1:17 PM LOS: 3 days Needs Prior to Discharge: To Be Determined Consults: - Pulmonology - Cardiology Medical Needs: - IV lasix Transportation: - Family D/C Disposition: Once cleared by consults and attending physician, patient will be d/c back home. Patient is active with [facility], [facility] for PT/OT/SN provided to agency. Plan for patient's daughter or niece to transport. Please contact this SW over the weekend for d/c planning as needed. SIGNATURE: JACK Posada PATIENT NAME: Nicole Lora DATE: October 27, 2023 TIME: 1:17 PM PAGER/CONTACT #: [phone] NoteHNO ID: [id number] Author: TAY STEWART MD Service: General Internal [...] 6.3 CA 9.1 MG (more content not included)...[facility]ows[facility]z47-[facility]68 NoteHNO ID: [id number] Author: JUSTINO MARTÍNEZ, RAFAEL Service: Nursing Author Type: Registered Nurse Type: Nursing Progress Note Filed: 10/27/2023 03:59 Note Text: Patient's daughter called. She would like the team to call her with updates. [facility] HospitalBlpzobtn61-15-3868 NoteHNO ID: [id number] Author: DELLA MADDOX RN Service: Care Management Author Type: Registered Nurse Type: Care Mgt Progress Note Filed: 10/26/2023 18:23 Note Text: CARE MANAGEMENT PROGRESS NOTE SERVICE DATE: 10/26/2023 SERVICE TIME: 6:16 PM LOS: 2 days Post-Acute Discharge Planning Patient Goal(s): General wellness [place] of Choice Explained: [place] of Choice Given: Yes Level of Care [...] not know which agency. CM searched in [employer]-looks like pt is active with [facility] [phone] per [facility]-referral sent to confirm/resume. May NEED NEW F2F [...] 26, 2023 TIME: 6:15 PM PAGER/CONTACT #: [phone] [id number] NoteHNO ID: [id number] Author: VALERIE LINDSEY APRN.CNP Service: General Internal Medicine Author Type: Nurse Practitioner Type: Plan of Care Filed: 10/26/2023 15:36 Note Text: INTERNAL MEDICINE PLAN OF CARE SERVICE DATE: 10/26/2023 SERVICE TIME: 10 am ADMITTING PHYSICIAN: Tay Stewart MD Subjective CHIEF COMPLAINT: Fluid Overload NIGHT AND WEEKEND COVERAGE: [place] COVERAGE: [place] PAGER [phone] INTERVAL HISTORY OF PRESENT ILLNESS: Pt seen and examined on [facility] no apparent distress oob in chair. On was moved from the MICU to [facility] yesterday evening . CONSULTANTS: Cardiology, nephrology , Pulmonary consulted today HOSPITAL COURSE: This is a 63 year old male with a PMHx of CKD 3b, chronic respiratory failure, morbid obesity, insulin dependent diabetes, left forefoot amputation admitted from home, lives in [place] for fluid overload. The patient states he's [...] Patient transferred from ED to [facility] where he has RR 2/2 acute [...] and Airways Line Duration Peripheral 10/23/[address] [facility] Short Right Antecubital 20 Gauge 2 days Drain Duration Indwelling Urinary Catheter External Facility Coude 18 Fr -- days ASSESSMENT/PLAN: * Fluid overload- (present (more content not included)...[facility] 10-26-2023 NoteHNO ID: [id number] Author: TAY STEWART MD Service: General Internal [...] CREAT 1.84* GLUC 189* CMP: Recent Labs 10/26/23600 NA 146* K 4.3 [...] which included preparing to see the patient, gltv-uh-oswy patient ca (more content not included)...[facility] 10-25-2023 NoteHNO ID: [id number] Author: NAUN COUCH MD Service: Nephrology Author [...] limbs: +3 edema, distal pulses were palpable. LEARNING AND DEVELOPMENT INTERN: Conscious, Alert AND Orientedx3, fluent speech, intact [...] amputation admitted from home who presented to [facility] with complaints of worsening shortness of breath, bilateral lower extremity edema and ~ 10lb weight gain in the last few weeks. Patient reports multiple hospital admissions in 2023 at [facility] in [place] for fluid overload. He states he usually [...] mg TID More stable, feeling better -HTN PAPER HANDLER Hydralazine 75 mg q12 hours -> decrease to 10 mg TID On Isordil 10 mg TID Continue to trend Plan of care discussed with: Provider, RN, Patient Naun Couch MD [facility] October 25, 2023 4:27 PM [phone] [id number] NoteHNO ID: [id number] Author: NERY MOTTA MD Service: Cardiovascular Medicine Author Type: Physician Type: Progress Notes Filed: 10/25/2023 17:13 Note Text: [facility] PROGRESS NOTE CONSULTING SERVICE: Cardiology: Consult Team PRIMARY SERVICE: Internal Medicine Subjective: -SOB Objective: Physical Exam 10/25/23 0900 10/25/23 1000 10/25/23 1100 10/25/23 1200 BP: 115/51 125/59 (!) 108/49 Pulse: 80 74 71 Resp: 17 17 14 Temp: 36.9 ?C (98.4 ?F) TempSrc: Oral [...] Motta MD DATE of SERVICE: October 25, 2023[place] [address]-06-2024 NoteHNO ID: [id number] Author: MAE KENNY MD Service: Critical Care [...] Admitted to ICU for initiation of BiPAP 10/22 CXR suggestive of pulmonary venous hypertension and [...] 1.3 mL in (more content not included)... [facility]Lrgvljha31-33-1321 NoteHNO ID: [id number] Author: SRUTHI EGAN PA-C Service: General Internal Medicine Author Type: Physician Recording Studio Set Up Worker Type: Plan of Care Filed: 10/24/2023 23:16 [...] Addendum: 2312: Called ICU on-call doc at 2015 and paged at 1141. Nye back at 2110 with recs to transfer to ICU for bipap initiation. Plan discussed with RN. Patient currently asleep in chair. 90% on 5L O2 NC. Transfer order placed. Sruthi Egan PA-C 10/24/2023 11:15 [facility]03-05-2024 NoteHNO ID: [id number] Author: ELKE ORO RT(R) Service: ? Author Type: Machine Cage Maker Type: Progress Notes Filed: 10/24/2023 14:26 Note [...] PATIENT PRESENTS WITH AN IMPLANTABLE OR ATTACHED SLEEVE SETTER: No CREATININE: Creatinine Date Value Ref Range [...] safety can be found using this link: [email or web address] 20Diagnostic%20Nuclear%20Medicine%20Procedures.pdf SIGNATURE: RT Karen(R) PATIENT NAME: Nicole Lora DATE: October 24, 2023 TIME: 2:25 PM PAGER/CONTACT #:[facility] [id number] Hospital Discharge instructions Patient Education 10/18/2023 09:14:11 [...] Follow these instructions at home: Medicines Take nqkq-fqz-cahrzuv and prescription medicines only as told by [...] provider. Document Revised: 04/28/2021 Document Reviewed: 04/28/2021 [employer] Patient Education 2022 Dotted Block. Follow Up Care 09/19/2023 09:41:35 With:Taz THOMAS MD, URL Address: [address] [place] [address]- When: Unknown [facility] 02-25-2024 Evaluation + Plan noteExtracted from: Title:ED Note Author:Mone Martinez DO Date: Urinary catheter complicatio n (T83.9XXA: Unspecified complication of genitourinary prosthetic device, implant and graft, initial encounter) Future Appointments Appointment Date:10/18/2023 09:00:00 AM Scheduled Provider:Taz THOMAS MD Location:[facility] Appointment Type:URO New Patient Appointment Date:10/18/2023 09:15:00 AM Scheduled Provider:Sukh Harrington DPM Location[facility] Appointment Type:WC Follow Up Visit (FT) Appointment Date:11/01/2023 02:00:00 PM Scheduled Provider: Location:[facility] ERICKA Banda Appointment Type:URO Nurse Visit Appointment Date:11/16/2023 09:00:00 AM Scheduled Provider: Location:[facility] Appointment Type:Urology CALL PAT FT Appointment Date:11/20/2023 01:15:00 PM Scheduled Provider: Location:[facility] Appointment Type:Urology FT Future Scheduled Tests Radiology* XR Chest 2 Views 05/15/23 * XR Chest 2 Views 05/15/23 [facility]02-25-2024 Hospital Discharge instructions Patient Education 10/15/2023 06:54:02 Elliott Catheter Care, Male-[facility] (Custom) Elliott Catheter Care, Male A Elliott [...] cotton underwear to absorb moisture and keep quill skinner. 6. Keep the drainage bag below [...] Up Care 10/15/2023 06:04:22 With:REID BROOKE Address: [facility] [place] [id number] [facility] (1) When:10/18/2023 06:53:53 Comments:Call the office of [...] you develop any new or worsening symptoms. [facility]02-22-2024 Progress note Author Gigi Cooper [place] October 12, 2023 12:38pm Note Date/Time October 12, 2023 12:38pm [facility] [address] [place] [address] Nephrology Progress Note Signed Patient: Nicole Lora MR#: [id number] [birth year] : 1960 Acct:[id number] Age/Sex: 63 / M Adm Date: 4 Loc: 3T Room: [address] [place] [address] Type: ADM IN Attending Dr: Yesi Murphy [...] / 460 300 / 300 Output Total 51696 / 52987 3600 / 3600 4050 / 4050 900 [...] Puff/6 Gm Hfa.Aer.Ad) 2 puff INHALATION Q12HR.10A.10P [facility] Stop: 10/08/24 21:59 Last Admin: 10/12/23 09:05 Dose: 2 puff Dextrose (Dextrose 50% In Water 25 Gm/50 Ml Syringe) 0 gm IV-PUSH PRN PRN PRN Reason: Hypoglycemia Stop: 10/06/24 02:05 Furosemide (Furosemide 40 Mg/4 Ml Vial) 40 mg IV-PUSH BID@0800,1600 [facility] Stop: 10/06/24 07:59 Last Admin: 10/11/23 08:01 Dose: 40 mg Gabapentin (Gabapentin 600 Mg Tablet) 600 mg PO BID [facility] Stop: 10/06/24 11:59 Last Admin: 10/12/23 08:27 Dose: 600 mg Glucose (Dextrose 40% Gel 15 Gm Tube) 0 gm PO PRN PRN PRN Reason: Hypoglycemia Stop: 10/06/24 02:05 Heparin Sodium (Porcine) (Heparin 5,000 Unit/Ml Vial) 5,000 unit SUBCUT Q8HR [facility] Stop: 10/06/24 05:59 Last Admin: 10/12/23 04:59 Dose: 5,000 unit Hydralazine HCl (Hydralazine 50 Mg Tablet) 50 mg PO BID [facility] Stop: 10/08/24 08:59 Last Admin: 10/12/23 08:27 Dose: 50 mg Insulin Aspart (Insulin Aspart 300 Units/3 Ml Insuln.Pen) 0 units SUBCUT TID.WM.HS [facility]; Protocol Stop: 10/06/24 07:59 Last Admin: 10/12/23 11:57 Dose: 4 units Insulin Glargine (Insulin Glargine 300 Units/3 Ml Insuln.Pen) 20 units SUBCUT BID [facility] Stop: 10/07/24 20:59 Last Admin: [...] signed by Gigi Cooper MD> 10/12/23 1238 [facility] Work Phone: 1(798) 786-288502-22-2024 Discharge summary Author Yesi Murphy [place] October 12, 2023 1:36pm Note Date/Time October 12, 2023 10:24am [facility] [address] [place] [address] Discharge Summary Signed Patient: Nicole Lora MR#: [id number] [birth year] : 1960 Acct:[id number] Age/Sex: 63 / M Adm Date: 4 Loc: Room: [address] [place] [address]: Yesi Murphy MD Copies to: [...] continued througout his stay with a cumulative -39984 ml during his stay. He did have [...] Plan Discharge Plan Patient Disposition: Home Health [facility] Activity: No Activity Restriction Diet: Diabetic and [...] Patient Ordered By: Yesi Murphy Follow Up: [facility] Nephrology - [place] [Outside] - 10/24/23 [...] signed by Yesi Murphy MD> 10/12/23 1336 [facility] Work Phone: 1(303) 785-803202-21-2024 Progress note Author Gigi Cooper [place] October 11, 2023 12:27pm Note Date/Time October 11, 2023 12:27pm [facility] [address] [place] [address] Nephrology Progress Note Signed Patient: Nicole Lora MR#: [id number] [birth year] : 1960 Acct:[id number] Age/Sex: 63 / M Adm Date: 4 Loc: Room: [address] [place] [address] Type: ADM IN Attending Dr: Yesi Murphy [...] / 100 Output Total 3475 / 3475 43196 / 01062 3600 / 3600 1500 / 1500 Balance [...] 40 Mg Tablet) 40 mg PO DAILY [facility] Stop: 10/09/24 08:59 Last Admin: 10/11/23 08:02 Dose: 40 mg Budesonide/Formoterol Fumarate (Budesonide/Formoterol 160-4.5 Mcg 60 Puff/6 Gm Hfa.Aer.Ad) 2 puff INHALATION Q12HR.10A.10P [facility] Stop: 10/08/24 21:59 Last Admin: 10/11/23 07:58 Dose: 2 puff Dextrose (Dextrose 50% In Water 25 Gm/50 Ml Syringe) 0 gm IV-PUSH PRN PRN PRN Reason: Hypoglycemia Stop: 10/06/24 02:05 Furosemide (Furosemide 40 Mg/4 Ml Vial) 40 mg IV-PUSH BID@0800,1600 [facility] Stop: 10/06/24 07:59 Last Admin: 10/11/23 08:01 Dose: 40 mg Gabapentin (Gabapentin 600 Mg Tablet) 600 mg PO BID [facility] Stop: 10/06/24 11:59 Last Admin: 10/11/23 08:02 Dose: 600 mg Glucose (Dextrose 40% Gel 15 Gm Tube) 0 gm PO PRN PRN PRN Reason: Hypoglycemia Stop: 10/06/24 02:05 Heparin Sodium (Porcine) (Heparin 5,000 Unit/Ml Vial) 5,000 unit SUBCUT Q8HR [facility] Stop: 10/06/24 05:59 Last Admin: 10/11/23 05:42 Dose: 5,000 unit Hydralazine HCl (Hydralazine 50 Mg Tablet) 50 mg PO BID [facility] Stop: 10/08/24 08:59 Last Admin: 10/11/23 08:02 Dose: 50 mg Insulin Aspart (Insulin Aspart 300 Units/3 Ml Insuln.Pen) 0 units SUBCUT TID.WM.HS [facility]; Protocol Stop: 10/06/24 07:59 Last Admin: 10/11/23 11:38 Dose: 3 units Insulin Glargine (Insulin Glargine 300 Units/3 Ml Insuln.Pen) 20 units SUBCUT BID [facility] Stop: 10/07/24 20:59 Last Admin: [...] 40 Mg Tablet.Dr) 40 mg PO DAILY [facility] Stop: 10/09/24 08:59 Last Admin: 10/11/23 08:02 Dose: 40 mg Ropinirole HCl (Ropinirole 1 Mg Tablet) 1 mg PO QHS [facility] Stop: 10/08/24 21:59 Last Admin: 10/10/23 22:04 [...] signed by Gigi Cooper MD> 10/11/23 1227 [facility] Work Phone: 1(622) 518-567902-21-2024 Progress note Author Yesi Murphy [place] October 11, 2023 8:19am Note Date/Time October 11, 2023 8:17am [facility] [address] [place] [address] Hospitalist Progress Note Signed Patient: Nicole Lora MR#: [id number] [birth year] : 1960 Acct:[id number] Age/Sex: 63 / M Adm Date: 4 Loc: Room: [address] [place] [address] Type: ADM IN Attending Dr: Yesi Murphy [...] on chronic heart failure with preserved ejection [id number]% Patient is using 4 L nasal cannula [...] <Electronically signed by Yesi Murphy MD> 10/11/23818 [facility] Work Phone: 1(879) 843-755902-20-2024 Progress note Author Yesi Murphy [place] October 10, 2023 1:19pm Note Date/Time October 10, 2023 10:12am [facility] [address] [place] [address] Hospitalist Progress Note Signed Patient: Nicole Lora MR#: [id number] [birth year] : 1960 Acct:[id number] Age/Sex: 63 / M Adm Date: 4 Loc: 3T Room: [address] [place] [address] Type: ADM IN Attending Dr: Yesi Murphy [...] Reversal Oxycodone HCl 5 mg 10/07/23 01:58 02/20/24 08:35 Oxycodone Ir 5 Mg Tablet PO [...] on chronic heart failure with preserved ejection [id number]% Patient is using 4 L nasal cannula [...] assessment and plan. MD Charan Documented By: Lroeta Lawrence DO, RES 10/10/23 1 004 Signed By: <Electronically signed by DO JOSE Lawrence> 10/10/23 1056 <Electronically signed by Yesi Murphy MD> 10/10/23 0140 [facility] Work Phone: 1(302) 999-407102-20-2024 Progress note [facility] October 10, 2023 12:50pm Note Date/Time October 10, 2023 12:51pm [facility] [address] [place] [address] Nephrology Progress Note Signed Patient: Nicole Lora MR#: [id number] [birth year] : 1960 Acct:[id number] Age/Sex: 63 / M Adm Date: 4 Loc: Room: [address] [place] [address] Type: ADM IN Attending Dr: Yesi Murphy [...] Total 4250 / 4250 3475 / 3475 64665 / 53493 900 / 900 Balance -2620 / -2620 [...] 40 Mg Tablet) 40 mg PO DAILY [facility] Stop: 10/09/24 08:59 Last Admin: 10/10/23 08:35 Dose: 40 mg Budesonide/Formoterol Fumarate (Budesonide/Formoterol 160-4.5 Mcg 60 Puff/6 Gm Hfa.Aer.Ad) 2 puff INHALATION Q12HR.10A.10P [facility] Stop: 10/08/24 21:59 Last Admin: 10/10/23 10:19 Dose: 2 puff Dextrose (Dextrose 50% In Water 25 Gm/50 Ml Syringe) 0 gm IV-PUSH PRN PRN PRN Reason: Hypoglycemia Stop: 10/06/24 02:05 Furosemide (Furosemide 40 Mg/4 Ml Vial) 40 mg IV-PUSH BID@0800,1600 [facility] Stop: 10/06/24 07:59 Last Admin: 10/10/23 08:35 Dose: 40 mg Gabapentin (Gabapentin 600 Mg Tablet) 600 mg PO BID [facility] Stop: 10/06/24 11:59 Last Admin: 10/10/23 08:35 Dose: 600 mg Glucose (Dextrose 40% Gel 15 Gm Tube) 0 gm PO PRN PRN PRN Reason: Hypoglycemia Stop: 10/06/24 02:05 Heparin Sodium (Porcine) (Heparin 5,000 Unit/Ml Vial) 5,000 unit SUBCUT Q8HR [facility] Stop: 10/06/24 05:59 Last Admin: 10/10/23 05:49 Dose: 5,000 unit Hydralazine HCl (Hydralazine 50 Mg Tablet) 50 mg PO BID [facility] Stop: 10/08/24 08:59 Last Admin: 10/10/23 08:36 Dose: 50 mg Insulin Aspart (Insulin Aspart 300 Units/3 Ml Insuln.Pen) 0 units SUBCUT TID.WM.HS [facility]; Protocol Stop: 10/06/24 07:59 Last Admin: 10/10/23 11:50 Dose: 3 units Insulin Glargine (Insulin Glargine 300 Units/3 Ml Insuln.Pen) 20 units SUBCUT BID [facility] Stop: 10/07/24 20:59 Last Admin: [...] 40 Mg Tablet.Dr) 40 mg PO DAILY [facility] Stop: 10/09/24 08:59 Last Admin: 10/10/23 08:35 Dose: 40 mg Ropinirole HCl (Ropinirole 1 Mg Tablet) 1 mg PO QHS [facility] Stop: 10/08/24 21:59 Last Admin: 10/09/23 21:48 Dose: 1 mg Sodium Chloride (Sodium Chloride 0.9 % 10 Ml Syringe) 0 ml IV-PUSH PRN PRN PRN Reason: Flush Stop: 10/05/24 20:20 Last Admin: 10/08/23 16:49 Dose: 10 ml Sodium Chloride (Sodium Chloride 0.9 % 10 Ml Syringe) 0 ml IV-PUSH QSHIFT JMIMIE Stop: 10/06/24 05:59 Last Admin: 10/10/23 05:49 Dose: 10 ml Tamsulosin HCl (Tamsulosin 0.4 Mg Cap.Er.24h) 0.4 mg PO DAILY [facility] Stop: 10/09/24 08:59 Last Admin: 10/10/23 08:35 Dose: 0.4 mg Allergies Penicillins Allergy (Verified 10/06/23 20:32) Rash Results Labs 10/06/23 20:35 10/10/23 06:28 Labs: 10/10/23 10/10/23 06:28 09:35 BUN 45 H Creatinine 1.52 H Urine Color Yellow Urine Appearance Clear Urine pH 5.0 Ur Specific [place] 1.008 Urine Protein 30 H Urine Glucose [...] concern Documented By: Gigi Cooper MD 10/10/23 6226 Signed By: <Electronically signed by Gigi Cooper MD> 10/10/23 1256 [facility] Work Phone: 1(680) 759-624602-19-2024 Progress note Author Hood Zacarias [place] October 09, 2023 5:43pm Note Date/Time October 08, 2023 2:13pm [facility] [address] [place] [address] Event Note Signed Patient: Nicole Lora MR#: [id number] [birth year] : 1960 Acct:[id number] Age/Sex: 63 / M Adm Date: 4 Loc: Room: [address] [place] [address] Type: ADM IN Attending Dr: Yesi Murphy [...] <Electronically signed by MD Hood Zacarias> 10/09/23 1749 [facility] Work Phone: 1(843) 142-670902-19-2024 Progress note Author Yesi Murphy [place] October 09, 2023 2:16pm Note Date/Time October 09, 2023 1:59pm [facility] [address] [place] [address] Hospitalist Progress Note Signed Patient: Nicole Lora MR#: [id number] [birth year] : 1960 Acct:[id number] Age/Sex: 63 / M Adm Date: 4 Loc: Room: [address] [place] [address] Type: ADM IN Attending Dr: Yesi Murphy [...] <Electronically signed by Yesi Murphy MD> 10/09/23 1417 [facility] Work Phone: 1([phone] 612-372402-19-2024 Consult note Author Gigi Cooper [place] October 09, 2023 11:35am Note Date/Time October 09, 2023 11:35am [facility] [address] [place] [address] Nephrology Consult Note Signed Patient: Nicole Lora MR#: [id number] [birth year] : 1960 Acct:[id number] Age/Sex: 63 / M Adm Date: 4 Loc: Room: [address] [place] [address] Type: ADM IN Attending Dr: Yesi Murphy MD Copies to: MD Mounika Patricio MD, MD~ Providers Consult Date: 10/09/23 Requesting Provider: Yesi Murphy MD Primary Care Provider: Mounika Brooke MD HPI Reason for Consult: Acute kidney injury on [...] mild shortness of breath and body anasarca [facility] Medical History (Updated 10/09/23 @ 11:30 [...] Mg/4 Ml Vial) 40 mg IV-PUSH BID@0800,1600 [facility] Stop: 10/06/24 07:59 Last Admin: 10/09/23 07:49 Dose: 40 mg Gabapentin (Gabapentin 600 Mg Tablet) 600 mg PO BID [facility] Stop: 10/06/24 11:59 Last Admin: 10/09/23 07:50 Dose: 600 mg Glucose (Dextrose 40% Gel 15 Gm Tube) 0 gm PO PRN PRN PRN Reason: Hypoglycemia Stop: 10/06/24 02:05 Heparin Sodium (Porcine) (Heparin 5,000 Unit/Ml Vial) 5,000 unit SUBCUT Q8HR [facility] Stop: 10/06/24 05:59 Last Admin: 10/09/23 06:30 Dose: 5,000 unit Hydralazine HCl (Hydralazine 50 Mg Tablet) 50 mg PO BID [facility] Stop: 10/08/24 08:59 Last Admin: 10/09/23 08:04 Dose: 50 mg Insulin Aspart (Insulin Aspart 300 Units/3 Ml Insuln.Pen) 0 units SUBCUT TID.WM.HS [facility]; Protocol Stop: 10/06/24 07:59 Last Admin: 10/09/23 07:58 Dose: Not Given Insulin Glargine (Insulin Glargine 300 Units/3 Ml Insuln.Pen) 20 units SUBCUT BID [facility] Stop: 10/07/24 20:59 Last Admin: [...] 10 Ml Syringe) 0 ml IV-PUSH QSHIFT [facility] Stop: 10/06/24 05:59 Last Admin: [...] findings. Impression dictated by: Reinaldo Cheema Jr., D.O.10/08/2023 2:58 PM Dictation Location: [place] [address] Any impression(s) listed above is documentation that [...] <Electronically signed by Gigi Cooper MD> 10/09/23 1135 [facility] Work Phone: 1(747) 693-858602-18-2024 Progress note Author Ramses Masters [place] October 08, 2023 4:03pm Note Date/Time October 08, 2023 12:52pm [facility] [address] [place] [address] Hospitalist Progress Note Signed with Addenda Patient: Nicole Lora MR#: [id number] [birth year] : 1960 Acct:[id number] Age/Sex: 63 / M Adm Date: 4 Loc: Room: [address] [place] [address] Type: ADM IN Attending Dr: Ramses Masters [...] the daughterand he is usually seen at [facility]. He was recently admitted in August for pneumonia, volume overload and sepsis and now he is back again. The daughter requested the patient to be transferred to [facility]. I explained to thedaughter that at this time the patient is improving and would not have much to be offered more at [facility] but the daughter insistent to have him transferred and that she would feel more comfortable about that. I contacted the [facility] transfer center and spoke with Dr. medeiros from cardiology. The patient was accepted to the hospitalist service to Dr. Marcus Longoria Addendum Documented By: Ramses Masters MD 10/08/231602 Addendum Signed By: <Electronically signed by Ramses Masters MD> 10/08/231602 Date of Service: 10/08/2023 Subjective Subjective Narrative: [...] III?current creatinine seems to be around baseline. ?rail engineer is stable 1.7 with diuresis. -Consult nephrology [...] signed by Ramses Masters MD> 10/08/23 1252 [facility] Work Phone: 1([phone]) 233-394002-17-2024 Progress note Author Ramses Masters [place] October 07, 2023 1:28pm Note Date/Time October 07, 2023 1:28pm [facility] [address] [place] [address] Hospitalist Progress Note Signed Patient: Nicole Lora MR#: [id number] [birth year] : 1960 Acct:[id number] Age/Sex: 63 / M Adm Date: 4 Loc: Room: [address] [place] [address] Type: ADM IN Attending Dr: Ramses Masters [...] signed by Ramses Masters MD> 10/07/23 1328 [facility] Work Phone: 1(283) 475-193402-17-2024 History and physical note Author Tera Nevarez [place] October 07, 2023 4:13am Note Date/Time October 07, 2023 2:10am [facility] [address] [place], [place] [id number] Hospitalist H&P Signed Patient: Nicole Lora MR#: [id number] [birth year] : 1960 Acct:[id number] Age/Sex: 63 / M Adm Date: 4 Loc: Room: [address] [place] [address] Type: ADM IN Attending Dr: Tera Nevarez [...] will be admitted as inpatient to the [facility] telemetry floor. Review of Systems Review of Systems Review of systems: A 10 point review of systems was obtained, negative unless noted in the HPI or below. [facility] Medical History (Updated 10/07/23 @ 02:34 [...] % (Auto) 11.2 % (.) 10/06/23 20:35 [place] % (Auto) 10.0 % (.) 10/06/23 20:35 Eos % (Auto) 3.0 % (.) 10/06/23 20:35 Baso % (Auto) 1.0 % (.) 10/06/23 20:35 Nucleat RBC Rel Count 0.1 /100 WBC (0-0.5) 10/06/23 20:35 Neut # (Auto) 5.2 x10E3/uL (1.8-7.7) 10/06/23 20:35 Lymph # (Auto) 0.8 x10E3/uL (1.00-4.8) L 10/06/23 20:35 Dauphin # (Auto) 0.7 x10E3/uL (0.0-0.8) 10/06/23 20:35 [...] pH 5.0 (5.0-9.0) 10/06/23 21: Ur Specific Carlton 1.013 (1.001-1.030) 10/06/23 21: Urine Protein 100 [...] Squamous Epith Cells 0-1 /HPF (0-2) 10/06/23 21: Urine Bacteria None seen (None Seen) 10/06/23 21: Hyaline Casts 0-8 /LPF (0-8) 10/06/23 21:26 [...] (# of days): 3 Documented By: Lory Quinn, URBANO 10/07/23 0209 Signed By: <Electronically signed by URBANO Quinn> 10/07/23 0243 <Electronically signed by Tera Nevarez DO> 10/07/23 0413 [facility] Work Phone: 1(119) 602-350202-04-2024 Hospital Discharge instructions Patient Education 09/24/2023 21:50:57 [...] Treatment for this condition includes: Antibiotic medicine. Wrez-ola-slkyplg medicines to treat discomfort. Drinking enough water [...] Follow these instructions at home: Medicines Take tjkk-nkr-upkfjwq and prescription medicines only as told by [...] provider. Document Revised: 03/19/2021 Document Reviewed: 03/19/2021 [employer] Patient Education 2022 Dotted Block. Follow Up Care 09/24/2023 20:06:30 With:Taz THOMAS Address: [address] [facility] [place] [address]- Business (1) When:09/26/2023 21:38:10 With:REID BROOKE Address: [address] [facility] [place] [address] Business (1) When:Within 3 Day(s) [facility]02-04-2024 Evaluation + Plan noteExtracted from: Title:ED Note Author:Jose Miguel Phan DO Date :09/24/23 Acute UTI (N39.0: Urinary tr act infection, site not specified) Orders: cephalexin, 500 mg = 1 cap(s), Oral, q6hr, X 5 day(s), # 20 cap(s), Refills(s) 0, Pharmacy: [facility] #[id number], 180, cm, 09/24/23 20:13:00 EST, Height/Length Dosing, [...] AM Scheduled Provider:BRYAN Bahena APRN, [place] X Location:[facility] ERICKA Correa Appointment Type:URO New Patient Appointment Date:09/28/2023 01:00:00 PM Scheduled Provider: [facility] Appointment Type:WC HBO () Appointment Date:10/18/2023 09:00:00 AM Scheduled Provider:Taz THOMAS MD Location:[facility] Appointment Type:URO New Patient Diagnostic Tests Pending * Urine Culture 09/24/23 Future Scheduled Tests Radiology* XR Chest 2 Views 05/15/23 * XR Chest 2 Views 05/15/23 [facility]01-28-2024 Hospital Discharge instructions Patient Education 09/17/2023 [...] bag. Secure the leg bag according to meat stringer's instructions. This may be above or below [...] on each side. Do this in a owfgd-ux-dklx direction. ?If you are male: ?Use one [...] Clean the drainage bag according to the meat stringer's instructions or as told byyour health care [...] and water are not available, use hand cafe manager. Always make sure there are no twists, [...] provider. Document Revised: 04/07/2022 Document Reviewed: 04/07/2022 [employer] Patient Education 2022 [employer] Follow Up Care 09/17/2023 14:05:58 With:REID BROOKE Address: [facility] [address] [address] Business (1) When:09/20/2023 15:07:35 Comments:Apply small amount [...] with urologist as instructed by the hospitalist. [facility]01-28-2024 Evaluation + Plan noteExtracted from: Title:ED [...] 01:00:00 PM Scheduled Provider: [facility] Appointment Type:[facility] (FT) Future Scheduled Tests Radiology* XR Chest 2 Views 05/15/23 * XR Chest 2 Views 05/15/23 [facility]01[facility]27[facility] Comment: Electronically Signed By: Kayla Garcia MD\.br\Date and Time Signed: 09/16/23 10:23 [id number] [facility] Comment on above:Result Comment: Electronically Signed By: Kayla Garcia MD\.br\Date and Time Signed: 09/12/23 17:49 [id number] Hospital Discharge instructions Patient Education 08/06/2023 14:18:47 RICE Therapy for Routine Care of Injuries, Kbun-us-Tkrr RICE Therapy for Routine Care of Injuries [...] provider. Document Revised: 05/27/2021 Document Reviewed: 05/27/2021 [employer] Patient Education 2022 Dotted Block. 08/06/2023 14:18:47 Hip Pain Hip Pain The [...] activities that cause pain. General instructions Take ovtf-jiz-wrzqgce and prescription medicines only as told by [...] provider. Document Revised: 12/23/2019 Document Reviewed: 12/23/2019 [employer] Patient Education 2022 Dotted Block. Follow Up Care 08/06/2023 13:03:18 With:REID BROOKE Address: [address] [place] [address] [address] [facility] (1) When:08/09/2023 14:06:25 Comments:Follow-up with your primary care provider in 3 to 5 days. If symptoms worsen, do not improve, or new symptoms arise please report back to emergency department for further evaluation. [facility]12-17-2023 Evaluation + Plan noteExtracted from: Title:ED Note Author:Paddy Betancourt PA-C te:08/06/23 Right hip pain (M25.551: Barb n in right hip) Orders: XR Hip 2-3 Views Right + Pelvis Future Appointments Appointment Date:08/16/2023 09:30:00 AM Scheduled Provider:Sukh Harrington DPM [facility] Appointment Type:WC Follow Up Visit (FT) Appointment Date:08/24/2023 10:00:00 AM Scheduled Provider:Migue STROUD MD Location:[facility] Appointment Type: Open Future Scheduled Tests Radiology* XR Chest 2 Views 05/15/23 * XR Chest 2 Views 05/15/23 [facility]11-01-2023 Progress note Author Amrik De Guzman [place] June 21, 2023 12:21pm Note Date/Time June 21, 2023 1 2:21pm [facility] [address] [place] [address] Pulmonology Progress Note Signed Patient: Nicole Lora MR#: [id number] [birth year] : 1960 Acct:[id number] Age/Sex: 63 / M Adm Date: 3 Loc: Room: [address] [place] [address] Type: ADM IN Attending Dr: Alban Arrington [...] he is following up with pulmonology in [place], and supposed to call for sleep study and arrangement of positive pressure ventilation at home. Otherwise he is being discharged today, no further recommendations from my standpoint Documented By: Amrik De Guzman MD 06/21/23 1219 Signed By: <Electronically signed by Amrik De Guzman MD> 06/21/23 1221 [facility] Work Phone: 1(868) 611-584411-01-2023 Discharge summary Author Alban Arrington [place] June 21, 2023 1:58pm Note Date/Time June 21, 2023 1 2:17pm [facility] [address] [place] [address] Discharge Summary Signed Patient: Nicole Lora MR#: [id number] [birth year] : 1960 Acct:[id number] Age/Sex: 63 / M Adm Date: 3 Loc: Room: [address] [place] [address]: Alban Arrington DO Copies to: MD Alban Young, ~ Providers Date of Discharge: 06/21/23 Discharging Provider: [...] newly initiated on 4 L nasal cannula yugdwi-eda-aersp for ongoing hypoxia. Prior to this he [...] % (Auto) 57.7, Lymph % (Auto) 26.3, Dauphin % (Auto) 9.9, Eos % (Auto) 5.4, Baso % (Auto) 0.7, Nucleat RBC Rel Count 0.1, Neut # (Auto) 5.5, Lymph # (Auto) 2.5, Dauphin # (Auto) 0.9 H, Eos # (Auto) [...] kerlix Please keep previously scheduled appointment with leg breaker in [place]. Prescriptions: New lisinopril-hydrochlorothiazide 20-25 mg tablet 1 [...] <Electronically signed by Alban Arrington DO> 06/21/[address] [place] [address] Ctr Work Phone: 1(817) 408-396210-31-2023 Consult note Author Amrik De Guzman [place] June 20, 2023 2:43pm Note Date/Time June 20, 2023 2 :43pm [facility] [address] [place] [address] Pulmonology Consult Note Signed Patient: Nicole Lora MR#: [id number] [birth year] : 1960 Acct:[id number] Age/Sex: 63 / M Adm Date: 3 Loc: Room: [address] [place] [address] Type: ADM IN Attending Dr: Alban Arrington DO Copies to: MD Alban Andersen, Reid Lugo MendyDO~ HPI Date/Time of Consultation: Date of Service: [...] coughing spells for which she went to [facility] emergency room, wastold that he had [...] of oxygen, he was discharged home from [facility] on 4 L of oxygen. White count was normal his BUN and creatinine were elevated and was diagnosed with chronic kidney disease even previously at [facility]. I do not have any of his previous x- rays, CT, to review, chest x-ray here showed mild left lower lobe infiltrate possibly fibrotic or atelectatic with some volume loss in the left lung, again no baseline film to compare Review of Systems Review of Systems Review of systems: As mentioned above [facility] Medical History (Updated 06/20/23 @ 14:40 [...] failure or cor pulmonale. Reportedly echo at [facility] did not report pulmonary hypertension but [...] cm of water while he was at [facility] per his history, will try this again tonight * Patient reported to me seeing pulmonology in [place] who are arranging for sleep study and treatment of obstructive sleep apnea * Will need continued diuretic therapy on discharge in addition to continuous oxygen therapy * Maintain inhaled therapy as started by pulmonology in [place], patient will follow-up with them upon discharge Documented By: Amrik De Guzman MD 06/20/23 1434 Signed By: <Electronically signed by Amrik De Guzman MD> 06/20/23 1443 [facility] Work Phone: 1(411) 584-237610-31-2023 Progress note Author Alban Arrington [place] June 20, 2023 1:37pm Note Date/Time June 20, 2023 9 :48am [facility] [address] [place] [address] Hospitalist Progress Note Signed Patient: Nicole Lora MR#: [id number] [birth year] : 1960 Acct:[id number] Age/Sex: 63 / M Adm Date: 3 Loc: 3T Room: [id number] Type: ADM IN Attending Dr: Alban Arrington [...] Chloride Liquid 20 Meq/15 Ml Udc PO 10/29/24 01:20 DAILY PRN K < 3.8 Prednisone [...] chronic hypoxic respiratory failure -Recently discharged from [facility] for pneumonia on 4 L oxygen, [...] congestive heart failure, unspecified type -Echo at [facility] showed EF of 60 to 65% [...] <Electronically signed by Alban Arrington DO> 06/20/23 9987 [facility] Work Phone: 1(488) 713-398410-30-2023 Progress note Author Alban Arrington [place] June 19, 2023 10:05am Note Date/Time June 19, 2023 1 0:05am [facility] [address] [place] [address] Event Note Signed Patient: Nicole Lora MR#: [id number] [birth year] : 1960 Acct:[id number] Age/Sex: 63 / M Adm Date: 3 Loc: Room: [address] [place] [address] Type: ADM IN Attending Dr: Alban Arrington [...] as needed. Documented By: Alban Arrington DO 06/19/23 10 04 Signed By: <Electronically signed by Alban Arrington DO> 06/19/23 1005 [facility] Work Phone: 1(384) 483-331910-30-2023 History and physical note Author Alban Arrington [place] June 19, 2023 5:20am Note Date/Time June 19, 2023 3 :28am [facility] [address] [place] [address] Hospitalist H&P Signed Patient: Nicole Lora MR#: [id number] [birth year] : 1960 Acct:[id number] Age/Sex: 63 / M Adm Date: 3 Loc: Room: [address] [place] [address] Type: ADM IN Attending Dr: Alban Arrington DO Copies to: DO Reid Ferrer DO~ HPI DATE OF EXAMINATION: 06/19/23 CHIEF COMPLAINT: Swelling HISTORY OF PRESENT ILLNESS: This patient is a 63-year-old male recently hospitalized at [facility] and discharged . He was reportedly treated for pneumonia at that time. He was discharged on prednisone and doxycycline. He appears to have been discharged on 4 L of nasal cannula that he is to wear glhkuu-fzk-xhjio. His primary complaint today is worsening edema [...] The patient was subsequently admitted to the [facility] floor for treatment of acute on chronic [...] continued. He only recently was discharged on lnsgf-lcs-ousus 4 L O2. He may have been [...] negative unless noted below or in HPI [facility] Medical History Amputation of one or [...] % (Auto) 20.2 % (.) 06/18/23 22:08 Dauphin % (Auto) 9.2 % (.) 06/18/23 22:08 Eos % (Auto) 3.1 % (.) 06/18/23 22:08 Baso % (Auto) 0.7 % (.) 06/18/23 22:08 Nucleat RBC Rel Count 0.1 /100 WBC (0-0.5) 06/18/23 22:08 Neut # (Auto) 4.5 x10E3/uL (1.8-7.7) 06/18/23 22:08 Lymph # (Auto) 1.4 x10E3/uL (1.00-4.8) 06/18/23 22:08 Dauphin # (Auto) 0.6 x10E3/uL (0.0-0.8) 06/18/23 22:08 [...] pH 5.5 (5.0-9.0) 06/18/23 23:26 Ur Specific Carlton 1.020 (1.001-1.030) 06/18/23 23:26 Urine Protein 100 mg/dL (Negative) H 06/18/23 23:26 Urine Glucose (UA) >=1000 mg/dL (Normal) H 06/18/23 23:26 Urine Ketones Negative (Negative) 06/18/23 23:26 Urine Occult Blood Negative (Negative) 06/18/23 23:26 Urine Nitrite Negative (Negative) 06/18/23 23: Urine Bilirubin Negative (Negative) 06/18/23 23: Urine Urobilinogen Normal mg/dL (Normal) 06/18/23 23:26 [...] <Electronically signed by Alban Arrington DO> 06/19/23 9858 [facility] Work Phone: 1([phone] 228-486110-26-2023 Evaluation + Plan noteExtracted from: Title:Discharge Note [...] 11 refills, Not taking Freestyle Sage 2 [place], See Instructions Freestyle Sage 2 Sensors, See Instructions, 3 refills gabapentin 600 mg Tab, 600 mg= 1 tab(s), Oral, TID, 11 refills Glucometer, See Instructions Glucometer test strips, See Instructions, 11 refills guaiFENesin 600 mg ER Tab, 1200 mg= 2 tab(s), Oral, BID Insulin Pen Acton 31g x 8 mm, See Instructions, 4 [...] tab(s), Oral, Daily With When Contact Information [facility] 06/21/2023 09:30 AM EDT Additional Instructions: Ida LYMAN, Pippa Mabry, PUL, KATY Within 2 to 4 weeks [address] [facility] [place] [address]- Additional Instructions: Call for followup appointment [place] [address]- Business (1) Additional Instructions: Please call the office to make a follow up appiontment. You are new to the office. Thank you. Hypoxia Community-Acquired Pneumonia, Adult, Zvnf-gr-Fpmx Extracted from: Title:APSO Note Author:Saul CLEMENT-Annabella BECKER Date:06/15/23 Acute respiratory failure wi th hypoxia [...] Title:PCCM progress note Author:Zarina Calvert Jr., PA-C Date:06/14/23 1. Acute respiratory failure [...] and evaluated the patient with the physician transport assistant. His history, physical exam, assessment and [...] to baseline. - No urgent need for PAINTER AND DECORATOR - Hold losartan and metformin for AMY [...] will await pulmonology recommendations Ordered: [facility] Hospital Care/Day Moderate 35 Minutes 529[address] 2. Elevated brain natriuretic peptide (BNP) level (R79.89: Other specified abnormal findings of blood chemistry) despite echo negative for acute findings, cxr was concerning for fluid congestion 3. TC (obstructive sleep apnea) (G47.33: Obstructive sleep apnea (adult) (pediatric)) BiPap qHS and PRN 4. Hyperkalemia (E87.5: Hyperkalemia) 2/2 elevated glucose as well as elevated Cr, improved Status post [facility] Nephrology consulted and following trend control glucose [...] Renal Extracted from: Title:Inpatient Consultation-Floor Code* Author: Rodney CARNEY, Sasha Mata Date:06/13/23 Impression and Plan 1. Acute kidney [...] at 50ml/hour. - No urgent need for PAINTER AND DECORATOR - Hold losartan and metformin for AMY [...] kg over admission weight as well Ordered: [facility] Hospital Care/Day High 50 Minutes 70079 2. Elevated brain natriuretic peptide (BNP) level [...] Title:PCCM Consult Note Author:Nehal Robles PA-C, Sheyla Bui. Date:06/12/23 1. Acute respiratory failure with hypoxia [...] and evaluated the patient with the physician transport assistant. His history, physical exam, assessment and [...] Extracted from: Title:APSO Note Author:Mingo Pillai DO Jamse e:06/12/23 1. Acute hypoxemic respirato ry failure [...] and O's, daily weights Ordered: [facility] Hospital Care/Day High 50 Minutes 11691 2. Elevated brain natriuretic peptide (BNP) level [...] from: Title:Admission H & P Author:Jose LYMAN, [facility] Date:06/11/23 Acute hypoxemic respiratory failure Elevated [...] BID, # 20 cap(s), Refills(s) 0, Pharmacy: [facility] #[id number], 182, cm, 06/11/23 13:54:00 EDT, Height/Length Dosing, [...] day(s), # 7 tab(s), Refills(s) 0, Pharmacy: [facility] #[id number], 182, cm, 06/11/23 13:54:00 EDT, Height/Length Dosing, 139.6, kg, 06/11/23 13:54:00 EDT, Weight Dosing Automated Diff B-Type Natriuretic Peptide Basic Metabolic Panel Blood Culture Charcoal Blood Culture Charcoal Blood Gas Art, with Lytes, Gluc, Lact CBC w/ Auto Diff Continuous Pulse Oximetry CTA Chest ED Cardiac Monitoring eGFR Lactic Acid Oxygen Therapy PT & PTT Rapid COVID Antigen ([facility]) Saline Lock Insert Troponin 0 Hr. Troponin 3 Hr. Troponin 6 Hr. Troponin 9 Hr. Future Appointments Appointment Date:06/21/2023 09:30:00 AM Scheduled Provider:Sukh Harrington DPM [facility] Appointment Type: Follow Up Visit (FT) Appointment Date:08/24/2023 10:00:00 AM Scheduled Provider:Migue STROUD MD Location:[facility] Appointment Type: Open Future Scheduled Tests Radiology* XR Chest 2 Views 05/15/23 * XR Chest 2 Views 05/15/23 [facility]10-22-2023 Hospital Discharge instructions Patient Education 06/11/2023 [...] hypoxia. Follow these instructions at home: Take qznj-xtq-fhkjswu and prescription medicines only as told by [...] provider. Document Revised: 03/08/2022 Document Reviewed: 03/08/2022 [employer] Patient Education 2022 Dotted Block. 06/11/2023 20:24:39 Community-Acquired Pneumonia, Adult, Pscc-tp-Wrfh Community-Acquired Pneumonia, Adult Pneumonia is an infection [...] Follow these instructions at home: Medicines Take rogy-pna-iqsbclt and prescription medicines only as told by [...] cannot use soap and water, use hand cafe manager. Contact a doctor if: You have a [...] provider. Document Revised: 05/19/2020 Document Reviewed: 05/19/2020 [employer] Patient Education 2022 Dotted Block. Follow Up Care 06/11/2023 13:47:13 With:Ida LYMAN, Pippa Mabry, PUL, KATY Address: [address] [place] [address] Pulmonary Clinic (Heart & [place]ascular) [place] [address]- When:2 to 4 weeks Comments:Call for followup appointment With:[facility] Address:Unknown When:06/21/2023 09:30:00 With:Mouinka Brooke Address: [address] [place] [address]- Business (1) When: Unknown Comments:Please call the office to make a follow up appiontment. You are new to the office. Thank you. [facility]08-14-2023 Hospital Discharge instructions Follow Up Care 04/03/2023 10:10:15 With:Migue STROUD MD, FAM Address: When:Within 3 Month(s) [facility] 12-15-2022 Hospital Discharge instructions Patient Education [...] or polycystic ovarian syndrome (PCOS). Being of Dutch-Indonesian, -Dutch, /, or / descent. What are the [...] these instructions at home: General instructions Take npzr-hgl-mcniptv and prescription medicines only as told by [...] 01/31/2002 Document Revised: 04/24/2017 Document Reviewed: 04/24/2017 [employer] Patient Education [employer]. Follow Up Care 08/04/2022 13:03:59 With:Migue STROUD Address: [address] [place] [address] [facility] (1) When:08/07/2022 16:52:09 Comments:Call the office [...] at any time to continue your care. [facility]12-15-2022 Evaluation + Plan noteExtracted from: Title:ED [...] Appointments Appointment Date:09/13/2022 01:00:00 PM Scheduled Provider:Migue STORUD MD Location:[facility] Appointment Type:[facility]08-09-2022 Hospital Discharge instructions Follow Up Care 03/29/2022 14:12:55 With:Migue STROUD MD [facility] Address: When:Within 1 Month(s) [facility] 07-20-2022 Hospital Discharge instructions Patient Education [...] or polycystic ovarian syndrome (PCOS). Being of Dutch-Indonesian, -Dutch, /, or / descent. What are the [...] these instructions at home: General instructions Take ihmy-pou-udgsekg and prescription medicines only as told by [...] 01/31/2002 Document Revised: 04/24/2017 Document Reviewed: 04/24/2017 [employer] Patient Education 2020 Dotted Block. 03/09/2022 01:22:46 COVID-19 COVID-19 COVID-19 is a [...] managed at home with rest, fluids, and fdle-jtz-mbvjyzg medicines. Treatment for a serious infection usually [...] are safe for you. General instructions Take ezmk-wdx-hrufgmp and prescription medicines only as told by [...] water are not available, usean alcohol-based hand cafe manager. ?Avoid touching your mouth, face, eyes, or [...] water are not available, use alcohol-based hand cafe manager. Stay away from other members of your [...] 09/12/2019 Document Revised: 01/02/2020 Document Reviewed: 09/12/2019 [employer] Patient Education 2019 Dotted Block. Follow Up Care 03/08/2022 22:47:15 With:Migue STROUD Address: [address] [place] [address] [facility] (1) When:03/16/2022 [facility]07-19-2022 Evaluation + Plan noteExtracted from: Title:ED [...] Panel Influenza A&B Ag Rapid COVID Antigen ([facility]) Routine Capillary Glucose POC UA With Cult Reflex XR Chest Single View Future Appointments Appointment Date:03/29/2022 01:00:00 PM Scheduled Provider:Migue STROUD MD Location:[facility] Appointment Type: Open [facility]07-06-2022 Hospital Discharge instructions Follow Up Care 02/23/2022 13:55:05 With:Migue STROUD MD, [facility] Address: When:Within 3 Month(s) [facility] 05-10-2022 Hospital Discharge instructions Follow Up Care 12/28/2021 14:20:03 With:Migue STROUD MD, [facility] Address: When:Within 2 Month(s) [facility] Evaluation + Plan note Future Appointments Appointment Date:01/11/2022 01:40:00 PM Scheduled Provider:Migue STROUD MD Location:[facility] Appointment Type:[facility] Evaluation + Plan note Future Appointments Appointment Date:03/08/2022 01:20:00 PM Scheduled Provider:Migue STROUD MD Location:[facility] Appointment Type:[facility] Evaluation + Plan note Future Appointments Appointment Date:04/08/2022 09:00:00 AM Scheduled Provider: Location:[facility] Appointment Type:[facility] Medicare Wellness Subsequent Appointment Date:06/27/2022 02:20:00 PM Scheduled Provider:Migue STROUD MD Location:[facility] Appointment Type:[facility] Evaluation + Plan note Future Appointments Appointment Date:06/27/2022 02:20:00 PM Scheduled Provider:Migue STROUD MD Location:[facility] Appointment Type:[facility] Evaluation + Plan note Future Appointments Appointment Date:10/11/2022 02:20:00 PM Scheduled Provider:Migue STROUD MD Location:[facility] Appointment Type:[facility] Evaluation + Plan note Future Appointments Appointment Date:11/03/2022 10:00:00 AM Scheduled Provider:Migue STROUD MD Location:[facility] Appointment Type:[facility] Evaluation + Plan note Future Appointments Appointment Date:03/07/2023 10:40:00 AM Scheduled Provider:Migue STROUD MD Location:[facility] Appointment Type:[facility] Evaluation + Plan note Future Appointments Appointment Date:04/27/2023 09:40:00 AM Scheduled Provider:Migue STROUD MD Location:[facility] Appointment Type:[facility] evaluation + Plan note Future Appointments Appointment Date:04/25/2023 03:30:00 PM Scheduled Provider:Smooth Harrington DPM [facility] Appointment Type:[facility] Follow Up Visit (FT) Appointment Date:04/26/2023 09:30:00 AM Scheduled Provider:Sukh Harrington DPM [facility] Appointment Type:WC Follow Up Visit (FT) Appointment Date:04/27/2023 09:40:00 AM Scheduled Provider:Migue STROUD MD Location:[facility]ment Type[facility] Future Appointments Appointment Date:04/26/2023 09:30:00 AM Scheduled Provider:Sukh Harrington DPM [facility] Appointment Type:WC Follow Up Visit (FT) Appointment Date:05/22/2023 01:20:00 PM Scheduled Provider:Migue STROUD MD Location:[facility] Appointment Type:[facility] + Plan note Future Appointments Appointment Date:05/01/2023 11:15:00 AM Scheduled Provider: [facility] Appoint[facility] Type:WC Assessment (FT) Appointment Date:05/02/2023 04:00:00 PM Scheduled Provider:Smooth Harrington DPM [facility] Appointment Type:WC Follow Up Visit (FT) Appointment Date:05/22/2023 01:20:00 PM Scheduled Provider:Migue STROUD MD Location:[facility]ointment Type: [facility] Future App[facility]ments Appointment Date:05/02/2023 04:00:00 PM Scheduled Provider:Smooth Harrington DPM [facility] Appointment Type:WC Follow Up Visit (FT) Appointment Date:05/22/2023 01:20:00 PM Scheduled Provider:Migue STROUD MD Location:[facility] Appointment Type: Open [facility] Future Appointments Appointment Date:05/22/2023 01:20:00 PM Scheduled Provider:Migue STROUD MD Location:[facility]ointment Type:[facility] + Plan note Future Appointments Appointment Date:05/16/2023 08:30:00 AM Scheduled Provider: [facility] App[facility] Type:PUL Pulmonary Function Test (FT) Appointment Date:05/22/2023 01:20:00 PM Scheduled Provider:Migue STROUD MD Location:[facility] Appointment Type: Open Appointment Date:06/05/2023 10:30:00 AM Scheduled Provider:Mary Mendez MD [facility] Appointment Type:Pulmonary Follow Up (FT) Future Scheduled Tests Radiology* XR Chest 2 Views 05/15/23 * XR Chest 2 Views 05/15/23 [facility] Future App[facility]ments Appointment Date:06/05/2023 10:30:00 AM Scheduled Provider:Mary Mendez MD [facility] Appointment Type:Pulmonary Follow Up (FT) Appointment Date:06/07/2023 10:15:00 AM Scheduled Provider:Sukh Harrington DPM [facility] Appointment Type:WC Follow Up Visit (FT) Appointment Date:08/24/2023 10:00:00 AM Scheduled Provider:Migue STROUD MD Location:[facility] Appointment Type: Open Future Scheduled Tests Radiology* XR Chest 2 Views 05/15/23 * XR Chest 2 Views 05/15/23 [facility] [place] Evaluation + Plan note Future Appointments Appointment Date:06/28/2023 09:45:00 AM Scheduled Provider:Sukh Harrington DPM [facility] Appointment Type:WC Follow Up Visit (FT) Appointment Date:08/24/2023 10:00:00 AM Scheduled Provider:Migue STROUD MD Location:[facility] Appointment Type:FM Open Future Scheduled Tests Radiology* XR Chest 2 Views 05/15/23 * XR Chest 2 Views 05/15/23 [facility] Future App[facility]ments Appointment Date:06/28/2023 11:45:00 AM Scheduled Provider:Sukh Harrington DPM [facility] Appointment Type:WC Follow Up Visit (FT) Appointment Date:08/24/2023 10:00:00 AM Scheduled Provider:Migue STROUD MD Location:[facility] Appointment Type: Open Future Scheduled Tests Radiology* XR Chest 2 Views 05/15/23 * XR Chest 2 Views 05/15/23 [facility] Evaluation + Plan note Future Appointments Appointment Date:07/19/2023 10:30:00 AM Scheduled Provider:Sukh Harrington DPM [facility] Appointment Type:WC Follow Up Visit (FT) Appointment Date:08/24/2023 10:00:00 AM Scheduled Provider:Migue STROUD MD Location:[facility] Appointment Type: Open Future Scheduled Tests Radiology* XR Chest 2 Views 05/15/23 * XR Chest 2 Views 05/15/23 [facility] Future Appointments Appointment Date:08/02/2023 10:45:00 AM Scheduled Provider:Sukh Harrington DPM [facility] Appointment Type:WC Follow Up Visit (FT) Appointment Date:08/24/2023 10:00:00 AM Scheduled Provider:Migue STROUD MD Location:[facility] Appointment Type: Open Future Scheduled Tests Radiology* XR Chest 2 Views 05/15/23 * XR Chest 2 Views 05/15/23 [facility] Future Appointments Appointment Date:08/16/2023 09:30:00 AM Scheduled Provider:Sukh Harrington DPM [facility] Appointment Type:WC Follow Up Visit (FT) Appointment Date:08/24/2023 10:00:00 AM Scheduled Provider:Migue STROUD MD Location:[facility] Appointment Type: Open Future Scheduled Tests Radiology* XR Chest 2 Views 05/15/23 * XR Chest 2 Views 05/15/23 [facility] Future Appointments Appointment Date:08/24/2023 10:00:00 AM Scheduled Provider:Migue STROUD MD Location:[facility] Appointment Type: Open Appointment Date:08/30/2023 09:15:00 AM Scheduled Provider:Sukh Harrington DPM [facility] Appointment Type:WC Follow Up Visit (FT) Future Scheduled Tests Radiology* XR Chest 2 Views 05/15/23 * XR Chest 2 Views 05/15/23 [facility] Future Appointments Appointment Date:08/30/2023 09:15:00 AM Scheduled Provider:Sukh Harrington DPM [facility] Appointment Type:WC Follow Up Visit (FT) Future Scheduled Tests Radiology* XR Chest 2 Views 05/15/23 * XR Chest 2 Views 05/15/23 [facility] Evaluation + Plan note Future Appointments Appointment Date:09/05/2023 03:15:00 PM Scheduled Provider:Smooht Harrington DPM [facility] Appointment Type:WC HBO Eval (FT) Appointment Date:09/13/2023 10:45:00 AM Scheduled Provider:Sukh Harrington DPM [facility] Appointment Type:WC Follow Up Visit (FT) Future Scheduled Tests Radiology* XR Chest 2 Views 05/15/23 * XR Chest 2 Views 05/15/23 [facility] Future Appointments Appointment Date:09/13/2023 10:45:00 AM Scheduled Provider:Sukh Harrington DPM [facility] Appointment Type:WC Follow Up Visit (FT) Appointment Date:09/18/2023 01:00:00 PM Scheduled Provider: [facility] Appointment Type:WC HBO (FT) Future Scheduled Tests Radiology* XR Chest 2 Views 05/15/23 * XR Chest 2 Views 05/15/23 [facility] Future Appointments Appointment Date:09/13/2023 10:45:00 AM Scheduled Provider:Sukh Harrington DPM [facility] Appointment Type:WC Follow Up Visit (FT) Appointment Date:09/13/2023 01:00:00 PM Scheduled Provider: [facility] Appointment Type:WC HBO (FT) Appointment Date:09/14/2023 01:00:00 PM Scheduled Provider: [facility] Appointment Type:WC HBO (FT) Appointment Date:09/18/2023 01:00:00 PM Scheduled Provider: [facility] Appointment Type:WC HBO (FT) Appointment Date:09/28/2023 11:30:00 AM Scheduled Provider:Nicole Thompson MD [facility] Appointment Type:WC HBO Re-Eval (FT) Future Scheduled Tests Radiology* XR Chest 2 Views 05/15/23 * XR Chest 2 Views 05/15/23 [facility] Future Appointments Appointment Date:10/05/2023 11:00:00 AM Scheduled Provider: Location:[facility] Appointment Type:URO Nurse Visit Appointment Date:10/18/2023 09:00:00 AM Scheduled Provider:Taz THOMAS MD Location:[facility] Appointment Type:URO New Patient Appointment Date:10/18/2023 09:15:00 AM Scheduled Provider:Sukh Harrington DPM [facility] Appointment Type:WC Follow Up Visit (FT) Appointment Date:11/16/2023 09:00:00 AM Scheduled Provider: Location:[facility] Appointment Type:Urology CALL PAT FT Appointment Date:11/20/2023 01:15:00 PM Scheduled Provider: Location:[facility] Appointment Type:Urology FT Future Scheduled Tests Radiology* XR Chest 2 Views 05/15/23 * XR Chest 2 Views 05/15/23 [facility] Future Appointments Appointment Date:10/18/2023 09:00:00 AM Scheduled Provider:Taz THOMAS MD Location:[facility] Appointment Type:URO New Patient Appointment Date:10/18/2023 09:15:00 AM Scheduled Provider:Sukh Harrington DPM [facility] Appointment Type:WC Follow Up Visit (FT) Appointment Date:11/01/2023 02:00:00 PM Scheduled Provider: Location:[facility] Appointment Type:URO Nurse Visit Appointment Date:11/16/2023 09:00:00 AM Scheduled Provider: Location:[facility] Appointment Type:Urology CALL PAT FT Appointment Date:11/20/2023 01:15:00 PM Scheduled Provider: Location:[facility] Appointment Type:Urology FT Future Scheduled Tests Radiology* XR Chest 2 Views 05/15/23 * XR Chest 2 Views 05/15/23 [facility] evaluation + Plan note Future Appointments Appointment Date:11/01/2023 02:00:00 PM Scheduled Provider: Location:[facility] Appointment Type:URO Nurse Visit Appointment Date:11/16/2023 09:00:00 AM Scheduled Provider: Location:[facility] Appointment Type:Urology CALL PAT FT Appointment Date:11/20/2023 12:00:00 PM Scheduled Provider: Location:[facility] Appointment Type:Urology FT Appointment Date:11/20/2023 01:15:00 PM Scheduled Provider: Location:[facility] Appointment Type:Urology FT Future Scheduled Tests Radiology* XR Chest 2 Views 05/15/23 * XR Chest 2 Views 05/15/23 [facility] Evaluation + Plan note Future Appointments Appointment Date:11/16/2023 09:00:00 AM Scheduled Provider: Location:[facility] Appointment Type:Urology CALL PAT FT Appointment Date:11/20/2023 12:00:00 PM Scheduled Provider: Location:[facility] Appointment Type:Urology FT Appointment Date:11/20/2023 01:15:00 PM Scheduled Provider: Location:[facility] Appointment Type:Urology FT Future Scheduled Tests Radiology* XR Chest 2 Views 05/15/23 * XR Chest 2 Views 05/15/23 [facility] Evaluation + Plan note Future Appointments Appointment Date:12/15/2023 01:30:00 PM Scheduled Provider: Location:[facility] Appointment Type:URO Nurse Visit Appointment Date:12/19/2023 01:00:00 PM Scheduled Provider:Smooth Harrington DPM [facility] Appointment Type:WC Follow Up Visit (FT) Appointment Date:12/20/2023 09:00:00 AM Scheduled Provider:Sukh Harrington DPM [facility] Appointment Type:WC Follow Up Visit (FT) Appointment Date:01/31/2024 10:30:00 AM Scheduled Provider: Location:[facility] Appointment Type:Urology CALL PAT FT Appointment Date:02/05/2024 01:15:00 PM Scheduled Provider: Location:[facility] Appointment Type:Urology FT Future Scheduled Tests Radiology* XR Chest 2 Views 05/15/23 * XR Chest 2 Views 05/15/23 [facility] Future Appointments Appointment Date:12/19/2023 01:00:00 PM Scheduled Provider:Smooth Harrington DPM [facility] Appointment Type:WC Follow Up Visit (FT) Appointment Date:12/20/2023 11:15:00 AM Scheduled Provider:Sukh Harrington DPM [facility] Appointment Type:WC Follow Up Visit (FT) Appointment Date:01/12/2024 01:00:00 PM Scheduled Provider: Location:[facility] Appointment Type:URO Nurse Visit Appointment Date:01/31/2024 10:30:00 AM Scheduled Provider: Location:[facility] Appointment Type:Urology CALL PAT FT Appointment Date:02/05/2024 01:15:00 PM Scheduled Provider: Location:[facility] Appointment Type:Urology FT Future Scheduled Tests Radiology* XR Chest 2 Views 05/15/23 * XR Chest 2 Views 05/15/23 [facility] Evaluation + Plan note Future Appointments Appointment Date:12/26/2023 01:45:00 PM Scheduled Provider:Smooth Harrington DPM [facility] Appointment Type:WC Follow Up Visit (FT) Appointment Date:01/12/2024 01:00:00 PM Scheduled Provider: Location:[facility] Appointment Type:URO Nurse Visit Appointment Date:01/31/2024 10:30:00 AM Scheduled Provider: Location:[facility] Appointment Type:Urology CALL PAT FT Appointment Date:02/05/2024 01:15:00 PM Scheduled Provider: Location:[facility] Appointment Type:Urology FT Future Scheduled Tests Radiology* XR Chest 2 Views 05/15/23 * XR Chest 2 Views 05/15/23 [facility] Future Appointments Appointment Date:01/02/2024 03:45:00 PM Scheduled Provider:Smooth Harrington DPM [facility] Appointment Type:WC Follow Up Visit (FT) Appointment Date:01/12/2024 01:00:00 PM Scheduled Provider: Location:[facility] Appointment Type:URO Nurse Visit Appointment Date:01/31/2024 10:30:00 AM Scheduled Provider: Location:[facility] Appointment Type:Urology CALL PAT FT Appointment Date:02/05/2024 01:15:00 PM Scheduled Provider: Location:[facility] Appointment Type:Urology FT Future Scheduled Tests Radiology* XR Chest 2 Views 05/15/23 * XR Chest 2 Views 05/15/23 [facility] Future Appointments Appointment Date:01/09/2024 02:45:00 PM Scheduled Provider:Smooth Harrington DPM [facility] Appointment Type:WC Follow Up Visit (FT) Appointment Date:01/12/2024 01:00:00 PM Scheduled Provider: Location:[facility] Appointment Type:URO Nurse Visit Appointment Date:01/31/2024 10:30:00 AM Scheduled Provider: Location:[facility] Appointment Type:Urology CALL PAT FT Appointment Date:02/05/2024 01:15:00 PM Scheduled Provider: Location:[facility] Appointment Type:Urology FT Future Scheduled Tests Radiology* XR Chest 2 Views 05/15/23 * XR Chest 2 Views 05/15/23 [facility] Future Appointments Appointment Date:01/17/2024 10:00:00 AM Scheduled Provider:Sukh Harrington DPM [facility] Appointment Type:WC Follow Up Visit (FT) Appointment Date:01/31/2024 10:30:00 AM Scheduled Provider: Location:[facility] Appointment Type:Urology CALL PAT FT Appointment Date:02/05/2024 01:15:00 PM Scheduled Provider: Location:[facility] Appointment Type:Urology FT Future Scheduled Tests Radiology* XR Chest 2 Views 05/15/23 * XR Chest 2 Views 05/15/23 [facility] Evaluation + Plan note Future Appointments Appointment Date:01/23/2024 01:00:00 PM Scheduled Provider:Smooth Harrington DPM [facility] Appointment Type:WC Follow Up Visit (FT) Appointment Date:01/31/2024 10:30:00 AM Scheduled Provider: Location:[facility] Appointment Type:Urology CALL PAT FT Appointment Date:02/05/2024 01:15:00 PM Scheduled Provider: Location:[facility] Appointment Type:Urology FT Future Scheduled Tests Radiology* XR Chest 2 Views 05/15/23 * XR Chest 2 Views 05/15/23 [facility] Future Appointments Appointment Date:01/31/2024 09:45:00 AM Scheduled Provider:Sukh Harrington DPM [facility] Appointment Type:WC Follow Up Visit (FT) Appointment Date:01/31/2024 10:30:00 AM Scheduled Provider: Location:[facility] Appointment Type:Urology CALL PAT FT Appointment Date:02/05/2024 01:15:00 PM Scheduled Provider: Location:[facility] Appointment Type:Urology FT Future Scheduled Tests Radiology* XR Chest 2 Views 05/15/23 * XR Chest 2 Views 05/15/23 [facility] Future Appointments Appointment Date:02/05/2024 01:00:00 PM Scheduled Provider: Location:[facility] Appointment Type:Urology FT Appointment Date:02/14/2024 10:15:00 AM Scheduled Provider:Sukh Harrington DPM [facility] Appointment Type:WC Follow Up Visit (FT) Future Scheduled Tests Radiology* XR Chest 2 Views 05/15/23 * XR Chest 2 Views 05/15/23 [facility] Future Appointments Appointment Date:02/14/2024 08:30:00 AM Scheduled Provider: Location:[facility] Appointment Type:URO Nurse Visit Appointment Date:02/14/2024 10:15:00 AM Scheduled Provider:Sukh Harrington DPM [facility] Appointment Type:WC Follow Up Visit (FT) Appointment Date:02/28/2024 07:45:00 AM Scheduled Provider:Taz THOMAS MD Location:[facility] Appointment Type:URO Office Visit Future Scheduled Tests Radiology* XR Chest 2 Views 05/15/23 * XR Chest 2 Views 05/15/23 [facility] Future Appointments Appointment Date:02/14/2024 08:30:00 AM Scheduled Provider: Location:[facility] Appointment Type:URO Nurse Visit Appointment Date:02/28/2024 07:45:00 AM Scheduled Provider:Taz THOMAS MD Location:[facility] Appointment Type:URO Office Visit Appointment Date:02/28/2024 10:45:00 AM Scheduled Provider:Sukh Harrington DPM [facility] Appointment Type:WC Follow Up Visit (FT) Future Scheduled Tests Radiology* XR Chest 2 Views 05/15/23 * XR Chest 2 Views 05/15/23 [facility] Evaluation + Plan note Future Appointments Appointment Date:02/15/2024 08:30:00 AM Scheduled Provider: Location:[facility] Appointment Type:URO Nurse Visit Appointment Date:02/28/2024 07:45:00 AM Scheduled Provider:Taz THOMAS MD Location:[facility] Appointment Type:URO Office Visit Appointment Date:02/28/2024 10:45:00 AM Scheduled Provider:Sukh Harrington DPM [facility] Appointment Type:WC Follow Up Visit (FT) Future Scheduled Tests Radiology* XR Chest 2 Views 05/15/23 * XR Chest 2 Views 05/15/23 [facility] Evaluation + Plan note Future Appointments Appointment Date:02/28/2024 07:45:00 AM Scheduled Provider:Taz THOMAS MD Location:[facility] Appointment Type:URO Office Visit Appointment Date:02/28/2024 10:45:00 AM Scheduled Provider:Sukh Harrington DPM [facility] Appointment Type:WC Follow Up Visit (FT) Future Scheduled Tests Radiology* XR Chest 2 Views 05/15/23 * XR Chest 2 Views 05/15/23 [facility] [employer]aluation + Plan note Future Appointments Appointment Date:03/06/2024 10:45:00 AM Scheduled Provider:Sukh Harrington DPM [facility] Appointment Type:WC Follow Up Visit (FT) Appointment Date:09/04/2024 03:15:00 PM Scheduled Provider:Taz THOMAS MD Location:[facility] Appointment Type:URO Office Visit Future Scheduled Tests Laboratory* Basic Metabolic Panel 02/28/24 Radiology* XR Chest 2 Views 05/15/23 * XR Chest 2 Views 05/15/23 [facility] Evaluation + Plan note Future Appointments Appointment Date:03/13/2024 10:30:00 AM Scheduled Provider:Sukh Harrington DPM [facility] Appointment Type:WC Follow Up Visit (FT) Appointment Date:09/04/2024 03:15:00 PM Scheduled Provider:Taz THOMAS MD Location:[facility] Appointment Type:URO Office Visit Future Scheduled Tests Laboratory* Basic Metabolic Panel 02/28/24 Radiology* XR Chest 2 Views 05/15/23 * XR Chest 2 Views 05/15/23 [facility] Future Appointments Appointment Date:03/13/2024 10:30:00 AM Scheduled Provider:Sukh Harrington DPM [facility] Appointment Type:WC Follow Up Visit (FT) Appointment Date:09/04/2024 03:15:00 PM Scheduled Provider:Taz THOMAS MD Location:[facility] Appointment Type:URO Office Visit Future Scheduled Tests Radiology* XR Chest 2 Views 05/15/23 * XR Chest 2 Views 05/15/23 [facility] Future Appointments Appointment Date:09/04/2024 03:15:00 PM Scheduled Provider:Taz THOMAS MD Location:[facility] Appointment Type:URO Office Visit [facility] note* Diagnosis Onset Date Resolution Status Edema acute Hypertension acute Hypoxemia acute Volume overload acute [facility] Work Phone: evaluation note* Diagnosis Onset Date Resolution Status Acute on chronic respiratory failure with hypoxia and hypercapnia acute Edema acute Hypertension acute Hypertensive urgency acute Hypoxemia acute Obesity hypoventilation syndrome acute Obstructive sleep apnea acut e Respiratory failure acute Right heart failure acute Volume overload [facility] Work Phone: evaluation note* Diagnosis Onset Date Resolution Status Acute respiratory distress a cute CHF (congestive heart failure) acute COPD (chronic obstructive pulmonary disease) acute Lymphedema acute [facility] Work Phone: evaluation note* Diagnosis Onset Date Resolution Status Acute on chronic respiratory failure with hypoxia and hypercapnia acute Acute respiratory distress a cute AMY (acute kidney injury) ac [place] CHF (congestive heart failure) acute CKD (chronic kidney disease) stage 3, GFR 30-59 ml/min acute COPD (chronic obstructive pulmonary disease) acute Diabetes mellitus, type 2 ac [place] Hyperkalemia acute Hypertension acute Lymphedema acute Obesity hypoventilation syndrome acute Urine retention acute [facility] Work Phone: evaluation note* Diagnosis Onset Date Resolution Status CHF (congestive heart failure) acute CKD (chronic kidney disease) stage 3, GFR 30-59 ml/min acute COPD (chronic obstructive pulmonary disease) acute Diabetes mellitus, type 2 ac [place] Hypertension acute Lymphedema acute Obesity hypoventilation syndrome [...] disease) acute Diabetes mellitus, type 2 ac [place] Diastolic heart failure acut e Edema acute Hypernatremia acute Hypertension acute [id number] acute Lymphedema acute Metabolic alkalosis with respiratory acidosis acute Obesity hypoventilation syndrome acute Type 2 diabetes mellitus wit h diabetic chronic kidney disease acute Urine retention acute Hyperkalemia resolved [facility] Work Phone: Evaluation note* Diagnosis 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 HealthcareEvaluation note* Diagnosis Encounter for Medicare annual wellness exam- Primary Type 2 diabetes mellitus with hyperglycemia, without long-term current use of insulin ([facility]) RLS (restless legs syndrome) Restless legs syndrome (RLS) Chronic hypoxemic respiratory failure (CMS/HCC) Chronic respiratory failure Stage 3b chronic kidney disease (HCC) (CMS/[facility]) 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 Morbid obesity (CMS/HCC) Morbid obesity BMI 40.0-44.9, adult (CMS/HCC) Other diabetic neurological complication associated with type 2 diabetes mellitus (CMS/HCC) TC (obstructive sleep apnea) Obstructive sleep apnea (adult) (pediatric) Restless leg syndrome Restless legs syndrome (RLS) Acute on chronic respiratory failure with hypoxia and hypercapnia (CMS/HCC) Obesity hypoventilation syndrome (CMS/HCC) Obesity hypoventilation syndrome Hypertension, unspecified type (CMS/HCC) Varicose veins of both lower extremities, unspecified whether complicated Gastroesophageal reflux disease, unspecified whether esophagitis present 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 Morbid obesity ([facility]) Morbid obesity BMI 40.0-44.9, adult ([facility]) Other diabetic neurological complication associated with type 2 diabetes mellitus ([facility]) TC (obstructive sleep apnea) Obstructive sleep apnea (adult) (pediatric) Restless leg syndrome Restless legs syndrome (RLS) Acute on chronic respiratory failure with hypoxia and hypercapnia ([facility]) Obesity hypoventilation syndrome ([facility]) Obesity hypoventilation syndrome Hypertension, unspecified type ([facility]) Varicose veins of both lower extremities, unspecified whether complicated Gastroesophageal reflux disease, unspecified whether esophagitis present 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 ([facility]) Mixed hyperlipidemia ([facility]) Mixed hyperlipidemia Long-term insulin use ([facility]) Acute pain of right shoulder- Primary Chronic hypoxemic respiratory failure ([facility]) Chronic respiratory failure Hypertension, unspecified type ([facility]) BMI 40.0-44.9, adult ([facility]) Morbid obesity ([facility]) Morbid obesity Type 2 diabetes mellitus with hyperglycemia, with long-term current use of insulin ([facility]) documented in this encounter 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 Morbid obesity ([facility]) Morbid obesity BMI 40.0-44.9, adult ([facility]) Other diabetic neurological complication associated with type 2 diabetes mellitus ([facility]) TC (obstructive sleep apnea) Obstructive sleep apnea (adult) (pediatric) Restless leg syndrome Restless legs syndrome (RLS) Acute on chronic respiratory failure with hypoxia and hypercapnia ([facility]/HCC) Obesity hypoventilation syndrome ([facility]/HCC) Obesity hypoventilation syndrome Hypertension, unspecified type ([facility]) Varicose veins of both lower extremities, unspecified whether complicated Gastroesophageal reflux disease, unspecified whether esophagitis present 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 ([facility]) Mixed hyperlipidemia ([facility]) Mixed hyperlipidemia Long-term insulin use ([facility]) Difficulty walking- Primary Difficulty in walking Acute on chronic respiratory failure with hypoxia and hypercapnia ([facility]) Hypertension, unspecified type ([facility]) Type 2 diabetes mellitus with hyperglycemia, with long-term current use of insulin ([facility]) Morbid obesity ([facility]) Morbid obesity BMI 40.0-44.9, adult ([facility]) Type 2 diabetes mellitus with hyperglycemia, with long-term current use of insulin ([facility]) documented in this encounter 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 Morbid obesity ([facility]) Morbid obesity BMI 40.0-44.9, adult ([facility]) Other diabetic neurological complication associated with type 2 diabetes mellitus ([facility]) TC (obstructive sleep apnea) Obstructive sleep apnea (adult) (pediatric) Restless leg syndrome Restless legs syndrome (RLS) Acute on chronic respiratory failure with hypoxia and hypercapnia ([facility]/HCC) Obesity hypoventilation syndrome ([facility]/HCC) Obesity hypoventilation syndrome Hypertension, unspecified type ([facility]) Varicose veins of both lower extremities, unspecified whether complicated Gastroesophageal reflux disease, unspecified whether esophagitis present 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 ([facility]) Mixed hyperlipidemia ([facility]) Mixed hyperlipidemia Long-term insulin use ([facility]) Type 2 diabetes mellitus with hyperglycemia, with long-term current use of insulin ([facility])- Primary Insulin long-term use ([facility]) Encounter for long-term (current) use of insulin Vitamin D deficiency Encounter for dietary consultation Hyperlipemia, mixed ([facility]) Mixed hyperlipidemia Primary hypertension ([facility]) Unspecified essential hypertension Class 2 severe obesity due to excess calories with serious comorbidity and body mass index (BMI) of 38.0 to 38.9 in adult ([facility]) documented in this encounter 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 Morbid obesity ([facility]) Morbid obesity BMI 40.0-44.9, adult ([facility]) Other diabetic neurological complication associated with type 2 diabetes mellitus ([facility]) TC (obstructive sleep apnea) Obstructive sleep apnea (adult) (pediatric) Restless leg syndrome Restless legs syndrome (RLS) Acute on chronic respiratory failure with hypoxia and hypercapnia ([facility]) Obesity hypoventilation syndrome ([facility]) Obesity hypoventilation syndrome Hypertension, unspecified type ([facility]) Varicose veins of both lower extremities, unspecified whether complicated Gastroesophageal reflux disease, unspecified whether esophagitis present 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 HealthcareEvaluation note* Diagnosis 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, unspecified proliferative retinopathy type ([facility])- Primary 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 1 diabetes mellitus ([facility]) documented in this encounter [facility] HealthcareEvaluation note* Diagnosis 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, unspecified proliferative retinopathy type ([facility])- Primary documented in this encounter 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 Morbid obesity ([facility]/HCC) Morbid obesity BMI 40.0-44.9, adult ([facility]) Other diabetic neurological complication associated with type 2 diabetes mellitus ([facility]) TC (obstructive sleep apnea) Obstructive sleep apnea (adult) (pediatric) Restless leg syndrome Restless legs syndrome (RLS) Acute on chronic respiratory failure with hypoxia and hypercapnia ([facility]) Obesity hypoventilation syndrome ([facility]) Obesity hypoventilation syndrome Hypertension, unspecified type ([facility]) Varicose veins of both lower extremities, unspecified whether complicated Gastroesophageal reflux disease, unspecified whether esophagitis present 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 Morbid obesity ([facility]) Morbid obesity BMI 40.0-44.9, adult ([facility]) Other diabetic neurological complication associated with type 2 diabetes mellitus ([facility]) TC (obstructive sleep apnea) Obstructive sleep apnea (adult) (pediatric) Restless leg syndrome Restless legs syndrome (RLS) Acute on chronic respiratory failure with hypoxia and hypercapnia ([facility]) Obesity hypoventilation syndrome ([facility]) Obesity hypoventilation syndrome Hypertension, unspecified type ([facility]) Varicose veins of both lower extremities, unspecified whether complicated Gastroesophageal reflux disease, unspecified whether esophagitis present 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 ([facility]) Mixed hyperlipidemia ([facility]) Mixed hyperlipidemia Long-term insulin use ([facility]) Type 2 diabetes mellitus with hyperglycemia, with long-term current use of insulin ([facility])- Primary Insulin long-term use ([facility]) Encounter for long-term (current) use of insulin Vitamin D deficiency Encounter for dietary consultation Hyperlipemia, mixed ([facility]) Mixed hyperlipidemia Primary hypertension ([facility]) Unspecified essential hypertension documented in this encounter 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 Morbid obesity ([facility]) Morbid obesity BMI 40.0-44.9, adult ([facility]) Other diabetic neurological complication associated with type 2 diabetes mellitus TC (obstructive sleep apnea) Obstructive sleep apnea (adult) (pediatric) Restless leg syndrome Restless legs syndrome (RLS) Acute on chronic respiratory failure with hypoxia and hypercapnia ([facility]) Obesity hypoventilation syndrome ([facility]) Obesity hypoventilation syndrome Hypertension, unspecified type ([facility]) Varicose veins of both lower extremities, unspecified whether complicated Gastroesophageal reflux disease, unspecified whether esophagitis present 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 Mixed hyperlipidemia ([facility]) Mixed hyperlipidemia Long-term insulin use ([facility]) Chronic hypoxemic respiratory failure ([facility])- Primary Chronic respiratory failure Acute cough Chest congestion Other symptoms involving respiratory system and chest Type 2 diabetes mellitus with hyperglycemia, with long-term current use of insulin ([facility]) Long-term insulin use ([facility]) Difficulty walking Difficulty in walking Leg weakness, bilateral Muscle weakness (generalized) BMI 35.0-35.9,adult Morbid obesity ([facility]) Morbid obesity Type 2 diabetes mellitus with diabetic chronic kidney disease ([facility] Chronic kidney disease, stage 3b (HCC) ([facility]) Essential (primary) hypertension ([facility]) Unspecified essential hypertension Acquired absence of left foot ([facility]) Need for immunization against influenza Need for prophylactic vaccination and inoculation against influenza Need for pneumococcal vaccination Need for prophylactic vaccination against streptococcus pneumoniae (pneumococcus) documented in this encounter 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 Morbid obesity ([facility]/HCC) Morbid obesity BMI 40.0-44.9, adult ([facility]) Other diabetic neurological complication associated with type 2 diabetes mellitus TC (obstructive sleep apnea) Obstructive sleep apnea (adult) (pediatric) Restless leg syndrome Restless legs syndrome (RLS) Acute on chronic respiratory failure with hypoxia and hypercapnia ([facility]) Obesity hypoventilation syndrome ([facility]) Obesity hypoventilation syndrome Hypertension, unspecified type ([facility]) Varicose veins of both lower extremities, unspecified whether complicated Gastroesophageal reflux disease, unspecified whether esophagitis present 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 Morbid obesity ([facility]) Morbid obesity BMI 40.0-44.9, adult ([facility]) Other diabetic neurological complication associated with type 2 diabetes mellitus TC (obstructive sleep apnea) Obstructive sleep apnea (adult) (pediatric) Restless leg syndrome Restless legs syndrome (RLS) Acute on chronic respiratory failure with hypoxia and hypercapnia ([facility]) Obesity hypoventilation syndrome ([facility]) Obesity hypoventilation syndrome Hypertension, unspecified type ([facility]) Varicose veins of both lower extremities, unspecified whether complicated Gastroesophageal reflux disease, unspecified whether esophagitis present 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 Mixed hyperlipidemia ([facility]) Mixed hyperlipidemia Long-term insulin use ([facility]) Type 2 diabetes mellitus with hyperglycemia, with long-term current use of insulin ([facility])- Primary Insulin long-term use ([facility]) Encounter for long-term (current) use of insulin Vitamin D deficiency Encounter for dietary consultation Hyperlipemia, mixed ([facility]) Mixed hyperlipidemia Primary hypertension ([facility]) Unspecified essential hypertension documented in this encounter 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 Morbid obesity ([facility]) Morbid obesity BMI 40.0-44.9, adult ([facility]) Other diabetic neurological complication associated with type 2 diabetes mellitus TC (obstructive sleep apnea) Obstructive sleep apnea (adult) (pediatric) Restless leg syndrome Restless legs syndrome (RLS) Acute on chronic respiratory failure with hypoxia and hypercapnia ([facility]) Obesity hypoventilation syndrome ([facility]) Obesity hypoventilation syndrome Hypertension, unspecified type ([facility]) Varicose veins of both lower extremities, unspecified whether complicated Gastroesophageal reflux disease, unspecified whether esophagitis present 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 Mixed hyperlipidemia ([facility]) Mixed hyperlipidemia Long-term insulin use ([facility]) Muscle cramps- Primary Varicose veins of both lower extremities, unspecified whether complicated Type 2 diabetes mellitus with hyperglycemia, with long-term current use of insulin ([facility]) Essential (primary) hypertension ([facility]) Unspecified essential hypertension documented in this encounter [facility]* Diagnosis Encounter for Medicare annual wellness exam- Primary Type 2 diabetes mellitus with hyperglycemia, without long-term current use of insulin ([facility]) RLS (restless legs syndrome) Restless legs syndrome (RLS) Chronic hypoxemic respiratory failure ([facility]) Chronic respiratory failure Stage 3b chronic kidney disease (HCC) ([facility]) 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 Morbid obesity ([facility]) Morbid obesity BMI 40.0-44.9, adult ([facility]) Other diabetic neurological complication associated with type 2 diabetes mellitus TC (obstructive sleep apnea) Obstructive sleep apnea (adult) (pediatric) Restless leg syndrome Restless legs syndrome (RLS) Acute on chronic respiratory failure with hypoxia and hypercapnia ([facility]) Obesity hypoventilation syndrome ([facility]) Obesity hypoventilation syndrome Hypertension, unspecified type ([facility]) Varicose veins of both lower extremities, unspecified whether complicated Gastroesophageal reflux disease, unspecified whether esophagitis present 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 Mixed hyperlipidemia ([facility]) Mixed hyperlipidemia Long-term insulin use ([facility]) Anxiousness- Primary Anxiety state, unspecified documented in this encounter [facility]* Diagnosis Encounter for Medicare annual wellness exam- Primary Type 2 diabetes mellitus with hyperglycemia, without long-term current use of insulin ([facility]) RLS (restless legs syndrome) Restless legs syndrome (RLS) Chronic hypoxemic respiratory failure (HCC) Chronic respiratory failure Stage 3b chronic kidney disease ([facility]) 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 Morbid obesity ([facility]) Morbid obesity BMI 40.0-44.9, adult ([facility]) Other diabetic neurological complication associated with type 2 diabetes mellitus ([facility]) TC (obstructive sleep apnea) Obstructive sleep apnea (adult) (pediatric) Restless leg syndrome Restless legs syndrome (RLS) Acute on chronic respiratory failure with hypoxia and hypercapnia ([facility]) Obesity hypoventilation syndrome ([facility]) Obesity hypoventilation syndrome Hypertension, unspecified type Varicose [...] use of insulin (HCC) Long-term insulin use ([facility]) Morbid obesity ([facility]) Morbid obesity BMI 36.0-36.9,adult documented in this encounter [facility] HealthcareEvaluation note* Diagnosis Encounter for Medicare annual wellness exam- Primary Type 2 diabetes mellitus with hyperglycemia, without long-term current use of insulin ([facility]) RLS (restless legs syndrome) Restless legs syndrome (RLS) Chronic hypoxemic respiratory failure (HCC) Chronic respiratory failure Stage 3b chronic kidney disease ([facility]) 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 Morbid obesity ([facility]) Morbid obesity BMI 40.0-44.9, adult ([facility]) Other diabetic neurological complication associated with type 2 diabetes mellitus ([facility]) TC (obstructive sleep apnea) Obstructive sleep apnea (adult) (pediatric) Restless leg syndrome Restless legs syndrome (RLS) Acute on chronic respiratory failure with hypoxia and hypercapnia ([facility]) Obesity hypoventilation syndrome ([facility]) Obesity hypoventilation syndrome Hypertension, unspecified type Varicose veins of both lower extremities, unspecified whether complicated Gastroesophageal reflux disease, unspecified whether esophagitis present 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 ([facility]) Mixed hyperlipidemia Mixed hyperlipidemia Long-term insulin use ([facility]) Hospital discharge follow-up- Primary Other follow-up examination Type 2 diabetes mellitus with hyperglycemia, with long-term current use of insulin ([facility]) Hyperosmolar hyperglycemic state (HHS) ([facility]) Muscle cramps Long-term insulin use ([facility]) Difficulty walking Difficulty in walking Essential (primary) hypertension Unspecified essential hypertension Morbid obesity ([facility]) Morbid obesity BMI 38.0-38.9,adult documented in this encounter 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 Morbid obesity ([facility]) Morbid obesity BMI 40.0-44.9, adult ([facility]) Other diabetic neurological complication associated with type 2 diabetes mellitus ([facility]) TC (obstructive sleep apnea) Obstructive sleep apnea (adult) (pediatric) Restless leg syndrome Restless legs syndrome (RLS) Acute on chronic respiratory failure with hypoxia and hypercapnia ([facility]) Obesity hypoventilation syndrome ([facility]) Obesity hypoventilation syndrome Hypertension, unspecified type Varicose veins of both lower extremities, unspecified whether complicated Gastroesophageal reflux disease, unspecified whether esophagitis present 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 ([facility]) Mixed hyperlipidemia Mixed hyperlipidemia Long-term insulin use ([facility]) Grief- Primary Adjustment disorder with depressed mood Anxiousness Anxiety state, unspecified Neck pain Cervicalgia Type 2 diabetes mellitus with hyperglycemia, with long-term current use of insulin ([facility]) Essential (primary) hypertension Unspecified essential hypertension Morbid obesity ([facility]) Morbid obesity BMI 36.0-36.9,adult documented in this encounter [facility]* Diagnosis Encounter for Medicare annual wellness exam- Primary Type 2 diabetes mellitus with hyperglycemia, without long-term current use of insulin ([facility]) RLS (restless legs syndrome) Restless legs syndrome (RLS) Chronic hypoxemic respiratory failure (HCC) Chronic respiratory failure Stage 3b chronic kidney disease ([facility]) 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 Morbid obesity ([facility]) Morbid obesity BMI 40.0-44.9, adult ([facility]) Other diabetic neurological complication associated with type 2 diabetes mellitus (HCC) TC (obstructive sleep apnea) Obstructive sleep apnea (adult) (pediatric) Restless leg syndrome Restless legs syndrome (RLS) Acute on chronic respiratory failure with hypoxia and hypercapnia ([facility]) Obesity hypoventilation syndrome ([facility]) Obesity hypoventilation syndrome Hypertension, unspecified type Varicose veins of both lower extremities, unspecified whether complicated Gastroesophageal reflux disease, unspecified whether esophagitis present 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 [facility] Narrative No data available for this section [facility] Hospital Discharge instructions No data available for this section [facility] Hospital Discharge instructions Additional Instructions Continue [...] kerlix Please keep previously scheduled appointment with leg breaker in [place]. [facility] Work Phone: Progress note No data available for this section [facility] Rehabilitation - Outpatient (Routine) - Authorized Specialty Diagnoses / Procedures Referred By Contac t Referred To Contact Physical Therapy Diagnoses Difficulty in walking, not elsewhere classified Other symptoms and signs involving the musculoskeletal system Acquired absence of left foot (CMS/HCC) Procedures MD PHYS THERAPY EVALUATION Mounika Brooke MD [address] [place] [address] Phone: tel: fax: Mone Mcguire, PT [address] [address] Phone: tel: fax: Referral ID Status Reason Start Date Expiration Date V isits Requested Visits Authorized [id number] Authorized 12/11/2024 06/09/2025 99 99 [facility] [...] 2 Diastolic heart failure Edema Hypernatremia Hypertension [id number] Lymphedema Metabolic alkalosis with respiratory acidosis Obesity [...] Active St art: October 09, 2023 Tera J Nevarez , DO Admit Provider Active Start: October 09, 2023 Hood Zacarias MD Other Provider Active Start: Mi leerufelipa 2023 Yesi Murphy MD Other Provider Active [...] Migue Stroud MD Primary Care Provider Active Tire Servicer Relationship Specialty Start Date End Date Mounika Brooke MD [address] [place] [place] [address] PCP - General Family Medicine 07/27/23 Team Status: Active Member Role Status Dates Mounika Brooke MD Primary Care Provider Active Start: October 06, 2023 Jason Mercado DO Emergency Provider Active St art: October 06, 2023 Tera Nevarez , Admit Provider, Atte nding Provider Active Start: October 06, 2023 Team Status: Inactive Member Role Status Dates Mounika Brooke MD Primary Care Provider Active Start: October 13, 2023 End: October 13, 2023 Yesi Murphy MD Attending Provider Active S tart: October 13, 2023 End: October 13, 2023 Tire Servicer Relationship Specialty Start Date End Date Mounika Brooke MD [address] [place] [address] PCP - General Family Medicine 10/23/23 [place] [address] [address] Physician Nephrology 10/31/23 Team Status: Inactive Member Role Status Dates Mounika Brooke MD Primary Care Provider Active Start: November 11, 2023 End: November 17, 2023 Tera Nevarez DO Admit Provider Active Start: November 11, 2023 End: November 17, 2023 Hood Zacarias MD Other Provider Active Start: [facility] 2023 End: November 17, 2023 SOFIE Ardon Other Provider Active Start: November 11, 2023 End: November 17, 2023 Bladimir Story MD Other Provider Active Start: [facility] 2023 End: November 17, 2023 Immanuel Pozo MD Other Provider Active Star t: November 11, 2023 End: November 17, 2023 Satnam Guevara MD Other Provider Active Start: November 11, 2023 End: November 17, 2023 Gigi Cooper MD Other Provider Active Start: [facility] 2023 End: November 17, 2023 Manish Fu [...] Hood Zacarias MD Other Provider Active Start: [facility] 2023 SOFIE Ardon Other Provider Active Start: November 12, 2023 Bladimir Story MD Attending Provider, Other Provider Active Start: November 12, 2023 Immanuel Pozo MD Other Provider Active Star t: November 12, 2023 Satnam Guevara MD Other Provider Active Start: November 12, 2023 Gigi Cooper MD Other Provider Active Start: [facility] 2023 Tire Servicer Relationship Specialty Start Date End Date Mounika Brooke MD [address] [place] [address] PCP - General Family Medicine 10/23/23 [place] [address] [facility] [address] [place], [place] [id number] Physician Nephrology 10/31/23 Tire Servicer Relationship Specialty Start Date End Date Mounika Brooke MD [address] [place] [address] PCP - General Family Medicine 10/23/23 [place] [address] [facility] [address] [place] [place], [place] [id number] Physician Nephrology 10/31/23 Tire Servicer Relationship Specialty Start Date End Date Mounika Brooke MD [address] [place] [address] PCP - General Family Medicine 07/27/23 Tire Servicer Relationship Specialty Start Date End Date Mounika Brooke MD [address] [place] [address] PCP - General Family Medicine 07/27/23 Tire Servicer Relationship Specialty Start Date End Date Mounika Brooke MD [address] [place] [address] PCP - General Family Medicine 07/27/23 Mounika Brooke MD [address] [place] [address] PCP - [facility] 01/20/24 08/20/24 Tire Servicer Relationship Specialty Start Date End Date Mounika Brooke MD [address] [place] [address] PCP - General Family Medicine 07/27/23 Mounika Brooke MD [address] [place] [address] PCP - [facility] 01/20/24 08/20/24 Jennifer Short PA [address] [place] [address] Physician Recording Studio Set Up Worker Family Medicine 06/24/24 Tire Servicer Relationship Specialty Start Date End Date Mounika Brooke MD [address] [place] [address] PCP - General Family Medicine 07/27/23 Mounika Brooke MD [address] [place] [address] PCP [facility] 01/20/24 08/20/24 Tire Servicer Relationship Specialty Start Date End Date Mounika Brooke MD [address] [place] [address] PCP - General Family Medicine 07/27/23 Mounika Brooke MD [address] [place] [address] [facility] 01/20/24 08/20/24 Jennifer Short PA [address] [place] [address] Physician Recording Studio Set Up Worker Family Medicine 06/24/24 Tire Servicer Relationship Specialty Start Date End Date Mounika Brooke MD [address] [place] [address] PCP - General Family Medicine 07/27/23 Mounika Brooke MD [address] [place] [address] PCP - [facility] 01/20/24 08/20/24 Jennifer Short PA [address] [place] [address] Physician Recording Studio Set Up Worker Family Medicine 06/24/24 Tire Servicer Relationship Specialty Start Date End Date Mounika Brooke MD [address] [place] [address] PCP - General Family Medicine 07/27/23 Mounika Brooke MD [address] [place] [address] [facility] 01/20/24 08/20/24 Jennifer Short PA [address] [place] [address] Physician Recording Studio Set Up Worker Family Medicine 06/24/24 Tire Servicer Relationship Specialty Start Date End Date Mounika Brooke MD [address] [place] [address] PCP - General Family Medicine 07/27/23 Mounika Brooke MD [address] [place] [address] [facility] 01/20/24 08/20/24 Jennifer Short PA [address] [place] [address] Physician Recording Studio Set Up Worker Family Medicine 06/24/24 Tire Servicer Relationship Specialty Start Date End Date Mounika Brooke MD [address] [place] [address] PCP - General Family Medicine 07/27/23 Mounika Brooke MD [address] [place] [address] PCP - [facility] 01/20/24 08/20/24 Jennifer Short PA [address] [place] [address] Physician Recording Studio Set Up Worker Family Medicine 06/24/24 Tire Servicer Relationship Specialty Start Date End Date Mounika Brooke MD [address] [place] [address] PCP - General Family Medicine 07/27/23 Mounika Brooke MD [address] [place] [address] [facility] 01/20/24 08/20/24 Jennifer Short PA [address] [place] [address] Physician Recording Studio Set Up Worker Family Medicine 06/24/24 Tire Servicer Relationship Specialty Start Date End Date Mounika Brooke MD [address] [place] [address] PCP - General Family Medicine 07/27/23 Tire Servicer Relationship Specialty Start Date End Date Mounika Brooke MD [address] [place] [address] PCP - General Family Medicine 07/27/23 Tire Servicer Relationship Specialty Start Date End Date Mounika Brooke MD [address] [place] [address] PCP - General Family Medicine 07/27/23 Tire Servicer Relationship Specialty Start Date End Date Mounika Brooke MD [address] [place] [address] PCP - General Family Medicine 07/27/23 Tire Servicer Relationship Specialty Start Date End Date Mounika Brooke MD [address] [place] [address] PCP - General Family Medicine 07/27/23 Tire Servicer Relationship Specialty Start Date End Date Mounika Brooke MD [address] [place] [address] PCP - General Family Medicine 07/27/23 Tire Servicer Relationship Specialty Start Date End Date Mounika Brooke MD [address] [place] [address] PCP - General Family Medicine 07/27/23 Jennifer Short PA [address] [place] [address] Physician Recording Studio Set Up Worker Family Medicine 06/24/24 Tire Servicer Relationship Specialty Start Date End Date Mounika Brooke MD [address] [place] [address] PCP - General Family Medicine 07/27/23 Jennifer Short PA [address] [place] [address] Physician Recording Studio Set Up Worker Family Medicine 06/24/24 Tire Servicer Relationship Specialty Start Date End Date Mounika Brooke MD [address] [place] [address] PCP - General Family Medicine 07/27/23 Mounika Brooke MD [address] [place] [address] PCP - [facility] 11/19/24 Jennifer Short PA [address] [place] [address] Physician Recording Studio Set Up Worker Family Medicine 06/24/24 Janice Kevin LSW Tumbler [employer]ater Family Medicine 12/04/24 Tire Servicer Relationship Specialty Start Date End Date Mounika Brooke MD [address] [place] [address] PCP - General Family Medicine 07/27/23 Mounika Brooke MD [address] [place] [address] PCP - [facility] 11/19/24 Jennifer Short PA [address] [place] [address] Physician Recording Studio Set Up Worker Family Medicine 06/24/24 Janice Kevin LSW [employer] Family Medicine 12/04/24 12/10/24 Tire Servicer Relationship Specialty Start Date End Date Mounika Brooke MD [address] [place] [address] PCP - General Family Medicine 07/27/23 Mounika Brooke MD [address] [place] [address] PCP - [facility] 11/19/24 Jennifer Short PA [address] [place] [address] Physician Recording Studio Set Up Worker Family Medicine 06/24/24 Tire Servicer Relationship Specialty Start Date End Date Mounika Brooke MD [address] [place] [address] PCP - General Family Medicine 07/27/23 Mounika Brooke MD [address] [place] [address] PCP - [facility] 11/19/24 Jennifer Short PA [address] [place] [address] Physician Recording Studio Set Up Worker Family Medicine 06/24/24 Tire Servicer Relationship Specialty Start Date End Date Mounika Brooke MD [address] [place] [address] PCP - General Family Medicine 07/27/23 Mounika Brooke MD [address] [place] [address] PCP - [facility] 11/19/24 Jennifer Short PA [address] [place] [address] Physician Recording Studio Set Up Worker Family Medicine 06/24/24 Tire Servicer Relationship Specialty Start Date End Date Mounika Brooke MD [address] [place] [address] PCP - General Family Medicine 07/27/23 Mounika Brooke MD [address] [place] [address] PCP - [facility] 11/19/24 Jennifer Short PA [address] [place] [address] Physician Recording Studio Set Up Worker Family Medicine 06/24/24 Tire Servicer Relationship Specialty Start Date End Date Mounika Brooke MD [address] [place] [address] PCP - General Family Medicine 07/27/23 Mounika Brooke MD [address] [place] [address] PCP - [facility] 11/19/24 Jennifer Short PA [address] [place] [address] Physician Recording Studio Set Up Worker Family Medicine 06/24/24 Tire Servicer Relationship Specialty Start Date End Date Mounika Brooke MD [address] [place] [address] PCP - General Family Medicine 07/27/23 Mounika Brooke MD [address] [place] [address] PCP - [facility] 11/19/24 Jennifer Short PA [address] [place] [address] Physician Recording Studio Set Up Worker Family Medicine 06/24/24 Tire Servicer Relationship Specialty Start Date End Date Mounika Brooke MD [address] [place] [address] PCP - General Family Medicine 07/27/23 Mounika Brooke MD [address] [place] [address] PCP - [facility] 11/19/24 Jennifer Short PA [address] [place] [address] Physician Recording Studio Set Up Worker Family Medicine 06/24/24 Tire Servicer Relationship Specialty Start Date End Date Mounika Brooke MD [address] [place] [address] PCP - General Family Medicine 07/27/23 Mounika Brooke MD [address] [place] [address] PCP - [facility] 11/19/24 Jennifer Short PA [address] [place] [address] Physician Recording Studio Set Up Worker Family Medicine 06/24/24 Tire Servicer Relationship Specialty Start Date End Date Mounika Brooke MD [address] [place] [address] PCP - General Family Medicine 07/27/23 Mounika Brooke MD [address] [place] [address] PCP - [facility] 11/19/24 Jennifer Short PA [address] [place] [address] Physician Recording Studio Set Up Worker Family Medicine 06/24/24 Tire Servicer Relationship Specialty Start Date End Date Mounika Brooke MD [address] [place] [address] PCP - General Family Medicine 07/27/23 Mounika Brooke MD [address] [place] [address] PCP - [facility] 11/19/24 Jennifer Short PA [address] [place] [address] Physician Recording Studio Set Up Worker Family Medicine 06/24/24 Tire Servicer Relationship Specialty Start Date End Date Mounika Brooke MD [address] [place] [address] PCP - General [facility] Medicine 07/27/23 Mounika Brooke MD [address] [place] [address] PCP - [facility] 11/19/24 Jennifer Short PA [address] [place] [address] Physician Recording Studio Set Up Worker Family Medicine 06/24/24 Jacqueline Vega, RAFAEL [address] [place] [address] Registered Nurse Family Medicine 04/09/25 Janice Kevin LSW [address] [place] [address] Tumbler Plater Family Medicine 04/10/25 Tire Servicer Relationship Specialty Start Date End Date Mounika Brooke MD [address] [place] [address] PCP - General Family Medicine 07/27/23 Mounika Brooke MD [address] [place] [address] PCP - [facility] 11/19/24 Jennifer Short PA [address] [place] [address] Physician Recording Studio Set Up Worker Family Medicine 06/24/24 Jacqueline Vega, RN [address] [place] [address] Registered Nurse Family Medicine 04/09/25 Janice Kevin LSW [address] [place] [address] Tumbler Plater Family Medicine 04/10/25 Tire Servicer Relationship Specialty Start Date End Date Mounika Brooke MD [address] [place] [address] PCP - General Family Medicine 07/27/23 Mounika Brooke MD [address] [place] [address] PCP - [facility]oted 11/19/24 Jennifer Short PA [address] [place] [address] Physician Recording Studio Set Up Worker Family Medicine 06/24/24 Jacqueline Vega, RN [address] [place] [address] Registered Nurse Family Medicine 04/09/25 Janice Kevin LSW [address] [place] [address] Tumbler Plater Family Medicine 04/10/25 Tire Servicer Relationship Specialty Start Date End Date Mounika Brooke MD [address] [place] [address] PCP - General Family Medicine 07/27/23 Mounika Brooke MD [address] [place] [address] PCP - [facility]oted 11/19/24 Jennifer Short PA [address] [place] [address] Physician Recording Studio Set Up Worker Family Medicine 06/24/24 Jacqueline Vega, RAFAEL [address] [place] [address] Registered Nurse Family Medicine 04/09/25 Janice Kevin LSW [address] [place] [address] Tumbler Plater Family Medicine 04/10/25 Goals (unrecognized section and [...] section and content) DATE CREATED AUTHOR 10/29/2023 [facility] DATE CREATED AUTHOR AUTHOR'S ORGANIZ ATION 11/30/2023 [facility] DATE CREATED AUTHOR AUTHOR'S ORGANIZ ATION 03/14/2024 [facility] DATE CREATED AUTHOR AUTHOR'S ORGANIZ ATION 06/24/2024 [facility] DATE CREATED AUTHOR AUTHOR'S ORGANIZ ATION 09/05/2024 [facility] DATE CREATED AUTHOR AUTHOR'S ORGANIZ ATION 12/03/2024 [facility] DATE CREATED AUTHOR AUTHOR'S ORGANIZ ATION 12/24/2024 [facility] DATE CREATED AUTHOR AUTHOR'S ORGANIZ ATION 12/25/2024 [facility] DATE CREATED AUTHOR AUTHOR'S ORGANIZ ATION 12/26/2024 [facility] DATE CREATED AUTHOR AUTHOR'S ORGANIZ ATION 01/01/2025 [facility] DATE CREATED AUTHOR AUTHOR'S ORGANIZ ATION 01/17/2025 [facility] DATE CREATED AUTHOR AUTHOR'S ORGANIZ ATION 03/09/2025 [facility] DATE CREATED AUTHOR AUTHOR'S ORGANIZ ATION 03/10/2025 [facility] DATE CREATED AUTHOR AUTHOR'S ORGANIZ ATION 05/16/2025 [facility] DATE CREATED AUTHOR AUTHOR'S ORGANIZ ATION 06/02/2025 [facility] EPIC Source Comments (unrecognize d section and content) In the event this informatio n is protected by the Federal Confidentiality of Alcohol and Drug Abuse Patient Records regulations: The Federal rules restrict any use of the information to criminally investigate or prosecute any alcohol or drug abuse patient.[facility] the event this information is protected by the Federal Confidentiality of Alcohol and Drug Abuse Patient Records regulations: The Federal rules restrict any use of the information to criminally investigate or prosecute any alcohol or drug abuse patient.[facility]In the event this information is protected by the Federal Confidentiality of Alcohol and Drug Abuse Patient Records regulations: The Federal rules restrict any use of the information to criminally investigate or prosecute any alcohol or drug abuse patient.[facility] Reason for Visit (unrecogniz ed section and [...] Care Coordination 03/24/2025 Reason Comments Med Refill Reason Comments Diabetic Eye Exam FOR RECORDS PERTAINING TO PATIENTS WHO ARE [...] BE BASED ON THE PRIMARY CLINICAL RECORDS. [employer] provides no warranty or guarantee of the accuracy or completeness of information in this document.
== END 2025-06-04 13:53 | disposition home or self-care (01) ==
LOC: WC 13:52
PROVIDERS: Visit Provider Physician Assistant
DX: E11.621 Type 2 diabetes mellitus with foot ulcer (principal); L97.422 Non-pressure chronic ulcer of left heel and midfoot with fat layer exposed
CPT/HCPCS: 11043; 29445; A6213

== ENCOUNTER 2025-06-18 10:18 | Outpatient (OUT) | payer OTHER, SELFPAY ==
--- OUTSIDE RECORDS SUMMARY | 2025-06-05 13:10 | XMS_ITS | Encounter Summary ---
Author Organization [facility] Address [address] [place] [address] Care Team Providers Care Watcher Automat Long Goods Name Role Phone Mounika Brooke MD Primary Care Provider Jennifer Orta Unavailable [phone] Mounika Brooke MD Unavailable [phone] Annette Vega RN Unavailable [phone] Janice Kevin ELECTRONIC SALES AND SERVICE TECHNICIAN Unavailable Reason for Visit * ReasonCommentsDiabetesFollow-upLAB Encounter Details DateTypeDepartmentCare Team (Latest Contact Info)Cjxnuaznghu41/16/2025 1:10 PM EDTOffice Visit [facility] [address] [place] [phone] Kayla Sweeney MD [address] [place] [address] Type 2 diabetes mellitus with hyperglycemia, with long-term current use of insulin (HCC) (Primary Dx); Insulin long-term use (HCC); Vitamin D deficiency; Encounter for dietary consultation; Hyperlipemia, mixed; Primary hypertension Social History Tobacco UseTypesPacks/DayYears UsedDateSmoking Tobacco: NeverSmokeless Tobacco: NeverAlcohol UseStandard Drinks/WeekCommentsNever0 (1 standard drink = 0.6 oz pure alcohol)caffeine 1-2 cups per dayOverall Financial Resource Strain (CARDIA) AnswerDate RecordedHow hard is it for you to pay for the very basics like food, housing, medical care, and heating?Somewhat hard04/11/2025PHQ-2AnswerDate RecordedPatient Health Questionnaire-2 Naous565Fin[facility] [place] of Occupational Health - Occupational Stress QuestionnaireAnswerDate RecordedDo you feel stress - tense, restless, nervous, or anxious, or unable to sleep at night because yourmind is troubled all the time - these days?Very much04/11/2025 PRAPARE - TransportationAnswerDate RecordedIn the past 12 months, has lack of transportation kept you from medical appointments or from getting medications? Yes04/11/2025In the past 12 months, has lack of transportation kept you from meetings, work, or from getting things needed for daily living?Yes04/11/2025 Housing Stability Vital SignAnswerDate RecordedIn the last 12 months, was there a time when you were not able to pay the mortgage or rent on time?Yes04/11/2025 In the past 12 months, how many times have you moved where you were living?0 04/11/2025t any time in the past 12 months, were you homeless or living in a care home (including now)?No04/11/2025Sex and Gender InformationValueDate Recorded Sex Assigned at BirthNot on fileLegal FmrSloh8211/02/2022 7:40 PM EDTGender IdentityNot on fileSexual OrientationNot on filedocumented as of this encounter Last Filed Vital Signs Vital SignReadingTime TakenCommentsBlood Sxdsagar876/801 1:20 PM EDT Vpxul911106/05/2025 1:20 PM EDTTemperature--Respiratory Psve6392 1:20 PM EDTOxygen Ilhsbuznco36%06/05/2025 1:20 PM EDTInhaled Oxygen Concentration-- Bjanin93.3 kg (208 lb)06/05/2025 1:20 PM JVTKmlrzs279.3 cm (5' 11 )06/05/2025 1:20 PM EDTBody Mass Index29.011 1:20 PM EDTdocumented in this encounter Progress Notes * Kayla Sweeney MD - 06/05/2025 1:10 PM EDT Images from the original note were not included. [place] is a 65 y.o. male No ref. provider found presents with chief complaint of Diabetes and Follow-up (LAB) HPI: IM 05/2025 follow up visit on 06/05/2025 bg 406, A1c 15 , on fiasp 50 units maybe twice a day only. He has severe neuropathy asking for increasing dose of gabapentin IM 08/2024 follow up visit on 09/04/2024 [...] twice a day. Blood sugar in our falong853; A1C 11. SUBJECTIVE: MEDICATIONS: Current Outpatient Medications Medication Instructions albuterol HFA 90 mcg/act inhaler 2 puffs, Every 4 hours PRN Alcohol Swabs (Alcohol Prep) 70 % pads USE TO TEST BLOOD SUGAR 3 TIMES PER DAY B-D UF III MINI PEN NEEDLES 31G X 5 MM misc USE TO INJECT INSULIN UP TO 3 TIMES PER DAY Blood Glucose Monitoring Suppl (OneTouch Verio Flex System) w/Device kit USE DIRECTED TO TEST BLOOD SUGAR Continuous Blood Gluc Doughnut Machine Operator Helper (FreeStyle Sage 3 Simms) device 1 each, Does not apply, Continuous Continuous Blood Gluc Sensor (FreeStyle Sage 3 Sensor) misc 1 each, Does not apply, Every 14 days cyclobenzaprine (FLEXERIL) 10 mg, Oral, Nightly DULoxetine (CYMBALTA) 120 mg, Oral, Daily Fiasp FlexTouch 40 Units, Subcutaneous, 3 times daily with meals gabapentin (NEURONTIN) 800 mg, Oral, 3 times daily glucose blood (MokaTouch Verio) test strip USE TO TEST BLOOD SUGARS THREE TIMES A DAY. Lantus SoloStar 80 Units, Subcutaneous, Nightly linaGLIPtin (TRADJENTA) 5 mg, Oral, Daily losartan (COZAAR) 100 mg, Oral, Daily Misc. Devices (Cane) misc 1 each, Does not apply, Continuous pen needle 31G x 8 mm misc Use as instructed ALLERGIES: Allergies Allergen Reactions Penicillins Rash Penicillamine Unknown Past Medical History: Diagnosis Date Acute exacerbation of chronic obstructive pulmonary disease (HCC) 11/17/2023 Acute hypoxemic respiratory failure ([facility]) Acute on chronic respiratory failure with hypercapnia ([facility]) AMY (acute kidney injury) Arthritis Asthma ([facility]) Cataract Chronic kidney disease, stage 3b ([facility]) Diabetes ([facility]) Diabetes mellitus with neuropathy ([facility]) Dietary counseling and surveillance Dry eyes GERD (gastroesophageal reflux disease) Hypertension Lymphedema of both lower extremities 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 ([facility]) Morbid obesity with body mass index (BMI) of 40.0 to 49.9 ([facility]) Onychomycosis Pneumonia 06/19/2024 [facility] (pulmonary valve disease) Type 2 diabetes mellitus with hyperglycemia ([facility]) Vitamin D deficiency, unspecified Past Surgical History: [...] amputation Lab Results Component Value Date HGBA1C 15 06/05/2025 HGBA1C 12.9 09/04/2024 HGBA1C >14.0 (H) 06/21/2024 Lab Results Component Value Date GLU 401 06/05/2025 GLU 406 09/04/2024 GLU 243 07/15/2024 07/15/2024 2:27 PM 09/04/2024 2:00 PM 12/04/2024 2:11 PM 02/05/2025 12:28 PM 03/13/2025 12:30 PM 04/29/2025 11:28 AM 06/05/2025 1:20 PM Vitals BMI 38.22 kg/m2 39.05 kg/m2 35.7 kg/m2 36.43 kg/m2 38.02 kg/m2 36.79 kg/m2 29.01 kg/m2 BSA (m2) 2.49 m2 2.52 m2 2.41 m2 2.43 m2 2.49 m2 2.45 m2 2.17 m2 Systolic 120 116 120 138 124 112 112 Diastolic 58 66 70 82 60 60 80 Heart Rate 81 80 111 77 80 89 72 SpO2 97 % 98 % 92 % 95 % 98 % Temp 97.5 ??F 98.7 ??F 98.4 ??F 97.2 ??F Resp 18 18 16 Height (in) 5' 11 5' 11 5' 11 5' 11 5' 11 5' 11 5' 11 Weight (lb) 274 280 256 261.2 272.6 263.8 208 Visit Report Report Report Report Report Report Report Report ASSESSMENT AND PLAN: Assessment/Plan Diagnoses and all orders for this visit: Type 2 diabetes mellitus with hyperglycemia, with long-term current use of insulin (HCC) - POCT glucose manually resulted - POCT glycosylated hemoglobin (Hb A1C) docked device - linaGLIPtin (Tradjenta) 5 MG tablet; Take 1 tablet (5 mg) by mouth Daily - gabapentin (Neurontin) 800 MG tablet; Take 1 tablet (800 mg) by mouth in the morning and 1 tablet(800 mg) in the evening and 1 tablet (800 mg) before bedtime. - insulin glargine (Lantus SoloStar) 100 UNIT/ML pen; Inject 80 Units under the skin at bedtime - insulin aspart, with niacinamide, (Fiasp FlexTouch) 100 UNIT/ML injection; Inject 40 Units under the skin in the morning and 40 Units at noon and 40 Units in the evening. Inject with meals. He is not doing U500 at this time. We will start him back on Lantus 80 units at bedtime, change fiasp to 30-40-50 according to meal size, continue his Tradjenta, I will increase his gabapentin to 800 mg 3 times a day. Insulin long-term use (HCC) Vitamin D deficiency Encounter for dietary consultation Hyperlipemia, mixed Primary hypertension Follow up in about 3 months (around 09/05/2025). documented in this encounter Plan of Treatment DateTypeDepartmentCare Team (Latest Contact Info)Ndmydcrtfkz53/15/2026 1:10 PM ESTOffice Visit [facility] [place] [facility] [address] [place] [address] Kayla Sweeney MD [address] [place] [address] 12/01/2025 8:30 AM EDTOffice Visit [facility] [address] [place] [address] Perlita Wills MD [address] [place] [address] documented as of this encounter Procedures Procedure NamePriorityDate/TimeAssociated DiagnosisCommentsPOCT GLYCOSYLATED HEMOGLOBIN (HGB A1C)Yqhqxkz1306/05/2025 1:25 PM EDT Type 2 diabetes mellitus with hyperglycemia, with long-term current use of insulin (HCC) POCT IRLJQDHVihokng20/16/2025 1:25 PM EDT Type 2 diabetes mellitus with hyperglycemia, with long-term current use of insulin (HCC) documented in this encounter Results * POCT glycosylated hemoglobin (Hb A1C) docked device (06/05/2025 1:25 PM EDT) ComponentValueRef RangeTest MethodAnalysis TimePerformed AtPathologist SignatureHemoglobin X7O91Murhefkj (Source)Anatomical Location / Laterality Collection Method / VolumeCollection TimeReceived TimeBloodVenous blood specimen / Buhhnqm8306/05/2025 1:25 PM EDT Narrative Authorizing ProviderResult TypeResult StatusAharnol Sweeney MDPOINT OF CARE TEST ENTER/EDIT ORDERABLESFinal Result * POCT glucose manually resulted (06/05/2025 1:25 PM EDT)ComponentValueRef Range Test MethodAnalysis TimePerformed AtPathologist SignatureGlucose Blood, STK001 mg/dLSpecimen (Source)Anatomical Location / LateralityCollection Method / VolumeCollection TimeReceived TimeBloodCapillary blood specimen / Unknown 06/05/2025 1:25 PM EDT Narrative Authorizing ProviderResult TypeResult StatusAhmad Mi Sweeney MDPOINT OF CARE TEST ENTER/EDIT ORDERABLESFinal Result documented in this encounter Visit Diagnoses Diagnosis Type 2 diabetes mellitus with hyperglycemia, with long-term current use of insulin (HCC)- Primary Insulin long-term use (HCC) Encounter for long-term (current) use of insulin Vitamin D deficiency Encounter for dietary consultation Hyperlipemia, mixed Mixed hyperlipidemia Primary hypertension Unspecified essential hypertension documented in this encounter Care Teams Team MemberRelationshipSpecialtyStart DateEnd Mounika Brooke MD [address] [place] [address] [facility] - [facility] Mrabfpxr01/[facility]/23 Mounika Brooke MD [address] [place] [address] PCP - [facility]11/19/24 Jennifer Orta PA [address] [place] [address] Physician AssistantFamily Ybrvplfm72/4/24 Annette Vega, RN [address] [place] [address] Registered NurseFautly Medicine04/09/25 Janice Kevin LSW [address] [place] [address] Social Workermily Medicine04/10/25documented as of this encounter
--- OUTSIDE RECORDS SUMMARY | 2025-06-18 10:20 | XMS_ITS | Encounter Summary ---
Author Organization [facility] Address [address] [place] [address] Care Team Providers Care Hot Sealing Machine Operator Name Role Phone Mounika Brooke MD Primary Care Provider Jennifer Orta Unavailable [phone] Mounika Brooke MD Unavailable [phone] Annette Vega RN Unavailable [phone] Janice Kevin Unavailable Encounter Details DateTypeDepartmentCare Team (Latest Contact Info)Mcsihykgbti06/21/2025Patient Outreach [facility] [address] [place] [address] Janice Kevin LSW [address] [place] [id number] Social History Tobacco UseTypesPacks/DayYears UsedDateSmoking Tobacco: NeverSmokeless Tobacco: NeverAlcohol UseStandard Drinks/WeekCommentsNever0 (1 standard drink = 0.6 oz pure alcohol)caffeine 1-2 cups per dayOverall Financial Resource Strain (CARDIA) AnswerDate RecordedHow hard is it for you to pay for the very basics like food, housing, medical care, and heating?Somewhat hard04/11/2025PHQ-2AnswerDate RecordedPatient Health Questionnaire-2 Dzzvq152Fin[facility] [place] of Occupational Health - Occupational Stress QuestionnaireAnswerDate [...] were you homeless or living in a fdc (including now)?No04/11/2025Sex and Gender InformationValueDate Recorded Sex Assigned at BirthNot on fileLegal RomYdso6911/02/2022 7:40 PM EDTGender IdentityNot on fileSexual OrientationNot on filedocumented as of this encounter Progress Notes * JACK Murphy - 06/10/2025 2:17 PM EDT Received fax from [facility] regarding order for motorized chair submitted on 06/06 with make/model# pt requested. Fax indicates that this is not a covered item. Pt previously received a motorized wheelchair from [facility] but it does not fit through doorways at his home. [facility] for what he is requesting and they would allow an exchange. Fax indicates this item is a noncovered item . Pt notified and he would like me to call [facility] for clarification. Will do so. <June 11, 2025, 11:38 - JACK Murphy> Contacted [facility] [phone] for follow up on pt request for new motorized chair pt wanted to swap out as chair provided 03/2025 doesn't fit through doorways. Pt was given make/model ## from [facility] so rx was sent but fax back indicates that this is not a covered item. Spoke with Juan who states he doesn't know where pt got model # info and it does not show in their system that someone provided this to him. He also states that there is notes from a home assessment completed 03/27 as pt said no one ever came to complete an in person assessment. He suggests submitting new rx for a motorized wheelchair not scooter since scooters are not covered. He advised to not note any make/model #. Will work on new rx. <June 11, 2025, 14:11 - JACK Murphy> New order for power wheelchair created and faxed to [facility]. * JACK Murphy - 06/10/2025 2:17 PM EDT Contacted [facility] [phone] for follow up on new power wheelchair order that was submitted for pt since one they provided doesn't fit through doorways. Spoke with Juan who verified pt's contact # and they # they have on file is not correct. He states they have been trying to reach pt to discuss order and follow up questions. Unsure how they have incorrect # when they already provided a ryan r in the past. Provided correct #. They state chair is approved so will follow up with pt but also advised to have pt call them. Contacted pt and provided [facility] # and he will call for follow up.Denies any other needs. documented in this encounter Plan of Treatment DateTypeDepartmentCare Team (Latest Contact Info)Dlaedicynqy15/15/2026 1:10 PM ESTOffice Visit [facility] [place] [facility] [address] [place] [address] Kayla Sweeney MD [address] [place] [address] 12/01/2025 8:30 AM EDTOffice Visit [facility] [address] [place] [address] Perlita Wills MD [address] [place] [address] documented as of this encounter Visit Diagnoses Diagnosis Status post transmetatarsal amputation of left foot (HCC)- Primary Chronic hypoxemic respiratory failure (HCC) Chronic respiratory failure Primary osteoarthritis, unspecified site documented in this encounter Care Teams Team MemberRelationshipSpecialtyStart DateEnd Date Mounika Brooke MD [address] [place] [address] [facility] Vodvvsrl58/7/23 Mounika Brooke MD [address] [place] [address] [facility] - [facility]11/19/24 Jennifer Orta PA [address] [place] [address] Physician AssistantFamily Pneqgmhu29/4/24 Annette Vega, RN [address] [place] [address] Registered NurseFamily Medicine04/09/25 Janice Kevin LSW [address] [place] [address] Social WorkerFamily Medicine04/10/25documented as of this encounter
--- OUTSIDE RECORDS SUMMARY | 2025-06-18 10:20 | XMS_ITS | Encounter Summary ---
Author Organization [facility] Address [address] [place] [address] Care Team Providers Care Dog Obedience Instructor Name Role Phone Mounika Brooke MD Primary Care Provider [phone] Jennifer Orta Unavailable [phone] Mounika Brooke MD Unavailable Annette Vega RN Unavailable [phone] Janice Kevin Unavailable Encounter Details DateTypeDepartmentCare Team (Latest Contact Info)Aawwjtbyjss61/17/2025Patient Outreach [facility] [address] [place] [address] Annette Vega, RN [address] [place] [address] Social History Tobacco UseTypesPacks/DayYears UsedDateSmoking Tobacco: NeverSmokeless Tobacco: NeverAlcohol UseStandard Drinks/WeekCommentsNever0 (1 standard drink = 0.6 oz pure alcohol)caffeine 1-2 cups per dayOverall Financial Resource Strain (CARDIA) AnswerDate RecordedHow hard is it for you to pay for the very basics like food, housing, medical care, and heating?Somewhat hard04/11/2025PHQ-2AnswerDate RecordedPatient Health Questionnaire-2 Mkuyl116Finmountain view hospital [place] of Occupational Health - Occupational Stress QuestionnaireAnswerDate [...] were you homeless or living in a longterm (including now)?No04/11/2025Sex and Gender InformationValueDate Recorded Sex Assigned at BirthNot on fileLegal YsbMdja7211/02/2022 7:40 PM EDTGender IdentityNot on fileSexual OrientationNot on filedocumented as of this encounter Progress Notes * Annette Vega RN - 06/06/2025 2:17 PM EDT Call received from miguel Varghese insurance case manager, pt with her policy cancellation clerk. Reports pt new wheelchair needs repaired. States, they called the company and they report a new order needs to be sent to [facility]. Reviewed and advised, the issue is the company never came out to pt home and assessed as they were supposed to do, so now pt has a wheelchair that is not appropriate. They want the provider to now send a new order to fix the problem which they did not complete correctly. Transferred to Janice and will follow up. * JACK Murphy - 06/06/2025 2:17 PM EDT Received transferred call from pt's insurance case manager, Cooper [phone] stating she is at pt's hometrying to assist him with exploring new insurance plan for the new year. Pt is in background and states his motorized wheelchair that was provided by [facility] back in April does not fit throughdoorway and is damaged. Reports foot pedals are falling off. She states pt's insurance company justdropped off his motorized wheelchair last month and didn't tell him anything about it or assess himfor the specifics. Reports they together already talked to [facility] for over an hour and was toldthey just need a new rx and will allow an exchange with no issues. She states the make/model is [id number] 4 wheeled scooter Model # ZIPR 11. She would like [facility] assistance to submit new rx to [facility]. Will work on this. <June 06, 2025, 15:32 - JACK Murphy> Order created in new encounter and faxed to [facility]. Pt notified and encouraged to notify CCM ifhe does not receive any follow up from DME. documented in this encounter Plan of Treatment DateTypeDepartmentCare Team (Latest Contact Info)Ifiwdzbjaey71/15/2026 1:10 PM ESTOffice Visit [facility] [place] [facility] [address] [place] [address] Kayla Sweeney MD [address] [place] [address] 12/01/2025 8:30 AM EDTOffice Visit [facility] [address] [place] [address] Perlita Wills MD [address] [place] [address] documented as of this encounter Visit Diagnoses Diagnosis Type 2 diabetes mellitus with hyperglycemia, with long-term current use of insulin (HCC)- Primary Stage 3b chronic kidney disease (CMS-HCC) documented in this encounter Care Teams Team MemberRelationshipSpecialtyStart DateEnd Date Mounika Brooke MD [address] [place] [address] [facility] - [facility] Ymbczocg78/7/23 Mounika Brooke MD [address] [place] [address] PCP - [facility]11/19/24 Jennifer Orta PA [address] [place] [address] Physician Assistantmily Reputory87/4/24 Annette Vega, RAFAEL [address] [place] [address] Registered NurseFaorly Medicine04/09/25 Janice Kevin LSW [address] [place] [address] Social Workermily Medicine04/10/25documented as of this encounter
--- OUTSIDE RECORDS SUMMARY | 2025-06-18 10:20 | XMS_ITS | Clinical Summary ---
Author Organization [facility] Address [address] [place] [address] Care Team Providers Care Sheet Ironworker Name Role Phone Mounika Brooke MD Primary Care Provider [phone] Debora Levi MD Unavailable [phone] Allergies Active AllergyReactionsCriticalityNoted XeflDgfcnsayAhebdoqiiusZljj34/13/2015 Medications MedicationSigDispense QuantityRefillsLast FilledStart DateEnd DateStatus insulin regular human (HUMULIN R) 100 unit/mL injection Inject 15 Units subcutaneously three times daily before meals.Active INSULIN GLARGINE,HUM.REC.ANLOG (LANTUS SOLOSTAR SUBCUTANEOUS) Inject 40 Units subcutaneously daily at bedtime.Active ASPIRIN (ASPIR-81 ORAL) Take 81 mg by mouth once daily.Active atorvastatin (LIPITOR) 40 mg tablet 08/15/2023ctive budesonide-formoterol (SYMBICORT) 160-4.5 mcg/actuation inhaler Inhale 2 Puffs as instructed.05/09/2023ctive gabapentin (NEURONTIN) 600 mg tablet Take 600 mg by mouth three times a day.09/07/2023ctive guaiFENesin (MUCINEX) 600 mg 12 hr tablet Take 1,200 mg by mouth.06/15/2023ctive FIASP FLEXTOUCH U-100 INSULIN 100 unit/mL (3 mL) pen inject 15-18-20 PLUS ISS #2 (EXPECT DAILY DOSE OF 80 UNITS)10/12/2023ctive rOPINIRole (REQUIP) 1 mg tablet Take 1 mg by mouth daily at bedtime.07/29/2023ctive tamsulosin (FLOMAX) 0.4 mg Take 1 capsule by mouth every afternoon.10/02/2023ctive pantoprazole DR (PROTONIX) 40 mg tablet Take 40 mg by mouth once daily.Active empagliflozin (JARDIANCE) 10 mg tablet Take 1 tablet by mouth once daily. 30 tablet ctive hydrALAZINE (APRESOLINE) 10 mg tablet Take 1 tablet by mouth every 12 hours. 60 tablet ctive torsemide (DEMADEX) 20 mg tablet Take 3 tablets by mouth two times a day. 180 tablet ctive Active Problems ProblemNoted DateDiagnosed DateAcute pulmonary edema10/26/2023cute on chronic congestive heart wlbilpd4810/25/2023cute respiratory failure with hypoxia and jfurnnkipwi60/06/2024Fluid qgogcdny46/05/2024 Assessment & Plan (10/26/2023 3:21 PM EST): [...] Follow CBC, BMP Acute on chronic heart failure with preserved ejection mzoynyut25/05/2024 Obesity, Class III, BMI >= 40010/24/2023Systolic congestive heart failure 10/24/2023Type 2 diabetes mellitus with diabetic polyneuropathy, with [...] (10/26/2023 3:23 PM EST): BP controlled Continue CROSSBAR FRAME WIRER hydralazine Restless leg syndrome Assessment & Plan (10/24/2023 2:21 AM EST): Symptoms uncontrolled - Increase requip - Continue gabapentin Resolved Problems ProblemNoted DateDiagnosed DateResolved DateAcute on chronic respiratory failure with geayrwgwk49/09/2024 Assessment & Plan (10/24/2023 2:19 AM EST): See fluid overload Immunizations ImmunizationAdministration DatesNext DueCOVID-19 original vaccine, full dose, monovalent (MODERNA)07/27/2021,12/03/2020,11/02/2020OVID-19 vaccine, age 12+ yr, bivalent (PFIZER-BIONTECH)06/17/2022influenza (IIV4) vaccine, age 6 mo - 64 yr, quadrivalent, PF (AFLURIA, FLUARIX, FLULAVAL, FLUZONE)05/22/2023,06/17/2022, 07/20/2021influenza (IIV4) vaccine, quadrivalent (AFLURIA, FLULAVAL, FLUZONE) 06/04/2019,08/07/2018pneumococcal polysaccharide (PPV23) vaccine, 23 valent (PNEUMOVAX 23)08/07/2018,08/07/2018,11/24/2015 Social History Tobacco UseTypesPacks/DayYears UsedDateSmoking Tobacco: NeverAlcohol UseStandard Drinks/WeekCommentsNo0 (1 standard drink = 0.6 oz pure alcohol)Area Deprivation IndexAnswerDate RecordedNational Score (1-100), lower number is lower risk82 11/23/2023State Score (1-10), lower number is lower punl98911/23/2023ata from: https://www.neighborhoodatlas.medicine.[facility].edu/. Last address used for x[address]irw[address] CFHWPT4811/23/2023Sex and Gender InformationValueDate RecordedSex Assigned at BirthNot on fileLegal EdyJndy8910/25/2013 12:04 PM EST Gender IdentityNot on fileSexual OrientationNot on file Last Filed Vital Signs Vital SignReadingTime TakenCommentsBlood Byyhnsqk458/7903 11:20 AM EST Mpnbf411410/28/2023 11:20 AM RZYPurapvkjxtg96.9 ??C (98.4 ??F)10/28/2023 11:20 AM ESTRespiratory Ojai855710/28/2023 11:20 AM ESTOxygen Uzzoidfely29%10/28/2023 11:20 AM ESTInhaled Oxygen Concentration--Ecunio326.7 kg (275 lb)10/28/2023 8:48 AM ITKVnaqmj651.3 cm (5' 11 )10/24/2023 1:27 AM ESTBody Mass Index38.35010/24/2023 1:27 AM EST Plan of Treatment Health MaintenanceDue DateLast DoneCommentsAnxiety Irvqjnpkp66/20/1977Depression Cbesgdyua17/20/1977Hepatitis C Omkaigono05/20/1977DTaP,Tdap,Td Vaccine (1 - Tdap)1978CT Rhdtplnjdora63/20/2004Cologuard (FIT-DNA)01/08/2004Colonoscopy 01/08/2004Colorectal Cancer Tfnflzelz54/20/2004Fecal Occult Blood01/08/2004 Prostate Cancer Screening Kmaopawyrl08/20/7851Vlxynwtnvvcwu76/20/2004Shingrix Vaccine (1 of 2)2009Pneumococcal Vaccine: 50+ (2 of 2 - PCV)08/07/2019 08/07/2018, 08/07/2018, 11/24/2015Advance Directive Lbalmifqzx37/01/2025ovid-19 Vaccine ( season)/, 07/27/2021, 12/03/2020, Additional history existsInfluenza Vaccine (#1)/09/2022, 06/17/2022, 07/20/2021, Additional history existsDiabetes Fcbctmnyk03, 10/24/2023, 10/24/2023, Additional history existsLipid Yitysdqic52/06/2029 4RSV Vaccine (1 - 1-dose 75+ series)2034 Procedures Procedure NamePriorityDate/TimeAssociated DiagnosisCommentsCOMPREHENSIVE METABOLIC BEEMRCytldyj44/08/2024 5:18 AM EST LIPID PANEL, FGOCAZIEtlquii24/06/2024 6:27 AM EST from Last 3 Months or Most Recently Relevant to Health Maintenance Results * (ABNORMAL) COMP METABOLIC PANEL (10/27/2023 5:18 AM EST)ComponentValueRef RangeTest MethodAnalysis TimePerformed AtPathologist SignatureProtein, Total 6.36.3 - 8.0 g/dL10/27/2023 6:05 AM ESTFAIRVIEW LABORATORYAlbumin3.3(L)3.9 - 4.9 g/dL10/27/2023 6:05 AM ESTFAIRVIEW LABORATORYCalcium, Total9.18.5 - 10.2 mg/dL10/27/2023 6:05 AM ESTFAIRVIEW LABORATORYBilirubin, Total0.60.2 - 1.3 mg/dL10/27/2023 6:05 AM ESTFAIRVIEW LABORATORYAlkaline Hltilqtauhu3426 - 113 U/L10/27/2023 6:05 AM ESTFAIRVIEW KQZQTBXWITTIU25(L)14 - 40 U/L10/27/2023 6:05 AM ESTFAIRVIEW UAMOLDQPKCCSG0815 - 54 U/L10/27/2023 6:05 AM ESTFAIRVIEW BMTUIFBIFTPispnoa994(H)74 - 99 mg/dL10/27/2023 6:05 AM ESTFAIRVIEW LABORATORY Comment: The [place] Diabetes Association (ADA) provides guidance for cutoff values for fasting glucose andrandom glucose. The ADA defines fasting as no [...] Standards of Medical Care in Diabetes 2016, [place] Diabetes Association. Diabetes Care. 2016.39(Suppl 1). BUN40(H)9 - 24 mg/dL10/27/2023 6:05 AM ESTFAIRVIEW LABORATORYCreatinine1.62(H) 0.73 - 1.22 mg/dL10/27/2023 6:05 AM ESTFAIRVIEW QQFUBJPSGZKsrzvf338993 - 144 mmol/L10/27/2023 6:05 AM ESTFAIRVIEW LABORATORYPotassium4.13.7 - 5.1 mmol/L 10/27/2023 6:05 AM ESTFA[facility] UGSBMYLRGKAnhnnbva73217 - 105 mmol/L10/27/2023 6:05 AM ESTFA[facility] BEHWDIGQZUNM493(H)22 - 30 mmol/L10/27/2023 6:05 AM EST [facility] LABORATORYAnion Gap99 - 18 mmol/L10/27/2023 6:05 AM ESTFAIRVIEW LABORATORYEstimated Glomerular Filtration Rate47(L)>=60 mL/min/1.73m 10/27/2023 6:05 AM ESTFAIRVIEW LABORATORYComment:Estimated Glomerular Filtration Rate (eGFR) is calculated using the 2020 CKD-EPI creatinine equation. This equation utilizes serum creatinine, sex, and age as parameters. The creatinine assay has traceable calibration to isotope dilution-mass spectrometry. Refer to KDIGO guidelines for clinical interpretation. In patients with unstable renal function, e.g. those with acute kidney injury, the eGFRmay not accurately reflect actual GFR.Specimen (Source)Anatomical Location / LateralityCollection Method / VolumeCollection TimeReceived TimeBloodBLOOD SPECIMEN / Unknown Venipuncture / Zebnxvt9110/27/2023 5:18 AM EST10/27/2023 5:24 AM EST Narrative Authorizing ProviderResult TypeResult StatusIbrahim Bsscottya LABORATORYFinal ResultPerforming OrganizationAddressCity/State/ZIP CodePhone Number [facility] [address] * LIPID PANEL BASIC (10/25/2023 6:27 AM EST)ComponentValueRef RangeTest Method Analysis TimePerformed AtPathologist SignatureCholesterol, Evgpk427<200 mg/dL 10/25/2023 9:13 AM ESTFAIRVIEW LABORATORYComment: <200 mg/dL, Desirable 200-239 mg/dL, Borderline high >239 mg/dL, High Cylwfunqyyuz50<150 mg/dL10/25/2023 9:13 AM ESTFAIRVIEW LABORATORYComment: <150 mg/dL, Normal 150-199 mg/dL, Borderline high 200-499 mg/dL, High >499 mg/dL, Very high HDL Yiumxmfdfgc41>39 mg/dL10/25/2023 9:13 AM ESTFAIRVIEW LABORATORYComment: 40-59 mg/dL, Acceptable >59 mg/dL, High: Negative risk factor for coronary heart disease <40 mg/dL, Low: Positive risk factor for coronary heart disease Non HDL Sebxrqixyrz90<130 mg/dL10/25/2023 9:13 AM ESTFAIRVIEW LABORATORYComment: <130 mg/dL, Optimal 130-159 mg/dL, Near optimal/above optimal 160-189 mg/dL, Borderline high 190-219 mg/dL, High >219 mg/dL, Very high Secondary prevention optimal non HDL Cholesterol levels are recommended to be <100 mg/dL Fasting Tgma93icx66/06/2024 9:13 AM ESTFAIRVIEW LABORATORYVLDL Hapgrtuahcn30<30 mg/dL10/25/2023 9:13 AM ESTFAIRVIEW LABORATORYTC:HDL Ratio1.70<5.10010/25/2023 9:13 AM ESTFAIRVIEW LABORATORYLDL Cholesterol, Czxquupvnt25<100 mg/dL10/25/2023 9:13 AM ESTFAIRVIEW LABORATORYComment: <100 mg/dL, Optimal 100-129 mg/dL, Near optimal/above optimal 130-159 mg/dL, Borderline high 160-189 mg/dL, High >189 mg/dL, Very high Secondary prevention optimal LDL Cholesterol levels are recommended to be < 70 mg/dL LDL:HDL Ratio0.54<2.5403 9:13 AM ESTFAIRVIEW LABORATORYComment: Reference: 1. National Cholesterol Education Program ATP III Guideline At-A-Glance Quick Desk Reference: National Heart, Lung, and Blood [place]. National Institutes of Health. 2001: NIH Publication No. 01-3305. 2. An International Atherosclerosis Society position paper: global recommendations for the management of dyslipidemia: executive summary, Atherosclerosis. 2014: 232(2):410-413. Specimen (Source)Anatomical Location / LateralityCollection Method / Volume Collection TimeReceived TimeBloodBLOOD SPECIMEN / UnknownVenipuncture / Unknown 10/25/2023 6:27 AM EST10/25/2023 6:40 AM EST Narrative Authorizing ProviderResult TypeResult StatusDanielle Knowles ARTIFICIAL FOLIAGE ARRANGER.CNPLABORATORY Final ResultPerforming OrganizationAddressCity/State/ZIP CodePhone Number [facility] [phone] from Last 3 Months or Most Recently Relevant to Health Maintenance Insurance Care Teams Team MemberRelationshipSpecialtyStart DateEnd Mounika Brooke MD [address] [place] [address] PCP - GeneralFasdly Medicine10/23/23 [place] [address] [facility] [address] [place], [place] [id number] PhysicianNephrology10/31/23
--- OUTSIDE RECORDS SUMMARY | 2025-06-18 10:20 | XMS_ITS | Encounter Summary ---
Author Organization [facility] Address [address] [place] [address] Care Team Providers Care Furniture Painter Name Role Phone Mounika Brooke MD Primary Care Provider [phone] Jennifer Orta Unavailable [phone] Mounika Brooke MD Unavailable [phone] Annette Vega RN Unavailable [phone] Janice Kevin Unavailable Encounter Details DateTypeDepartmentCare Team (Latest Contact Info)Hivxfzmrftd88/17/2025Patient Outreach [facility] [address] [place] [phone] Annette Vega, RN [address] [place] [address] Social History Tobacco UseTypesPacks/DayYears UsedDateSmoking Tobacco: NeverSmokeless Tobacco: NeverAlcohol UseStandard Drinks/WeekCommentsNever0 (1 standard drink = 0.6 oz pure alcohol)caffeine 1-2 cups per dayOverall Financial Resource Strain (CARDIA) AnswerDate RecordedHow hard is it for you to pay for the very basics like food, housing, medical care, and heating?Somewhat hard04/11/2025PHQ-2AnswerDate RecordedPatient Health Questionnaire-2 Gzmnh629[facility] [place] of Occupational Health - Occupational Stress QuestionnaireAnswerDate [...] homeless or living in a half-way (including now)?No04/11/2025Sex and Gender InformationValueDate Recorded Sex Assigned at BirthNot on fileLegal OabZlnx3811/02/2022 7:40 PM EDTGender IdentityNot on fileSexual OrientationNot on filedocumented as of this encounter Progress Notes * Annette Vega RN - 06/06/2025 9:16 AM EDT Monthly monitor. Chart reviewed, SANJUANA 04/29/25 NOV not yet scheduled Call to pt for update on current status, management of chronic conditions. Reviewed recent OV with Dr. Sweeney, manages diabetes. Pt A1C 15. BS 401 Changes to insulin and medication made at OV , reviewed with pt and he verbalized understanding. Pt reports he will be picking up meds today. Reviewed his CGM use, pt reports he only ever used for 2 weeks . Explained he needed to refill sensors just like a medication. When the sensor expires heneeds to put a new one on. Advised they are now changed every 15 days. Pt will call Dr. Sweeney office for assist with new CGM order, but advised if any issues to call back for further needs. Pt completed diabetic eye exam. He continues to grieve loss of dtr, changed pharmacy to [facility] d/t I had a big issue with [facility] and [facility] meds she needed and it took them 3 days to fill . Support provided, active listening. Pt verbalized understanding. No other needs at this time. documented in this encounter Plan of Treatment DateTypeDepartmentCare Team (Latest Contact Info)Cbtbgcuenkt11/15/2026 1:10 PM ESTOffice Visit [facility] [place] [facility] [address] [place] [address] Kayla Sweeney MD [address] [place] [address] 12/01/2025 8:30 AM EDTOffice Visit [facility] [address] [place] [phone] Perlita Wills MD [address] [place] [address] documented as of this encounter Visit Diagnoses Diagnosis Type 2 diabetes mellitus with hyperglycemia, with long-term current use of insulin (HCC)- Primary Primary osteoarthritis, unspecified site documented in this encounter Care Teams Team MemberRelationshipSpecialtyStart DateEnd Date Mounika Brooke MD [address] [place] [address] PCP - GeneralFamily Qnhglenh53/7/23 Mounika Brooke MD [address] [place] [address] PCP - [facility]11/19/24 Jennifer Otra PA [address] [place] [address] Physician AssistantFamily Tfqmszfs14/4/24 Annette Vega, RAFAEL [address] [place] [address] Registered NurseFamily Medicine04/09/25 Janice Kevin, JACK [address] [place] [address] Social WorkerFamily Medicine04/10/25documented as of this encounter
--- OUTSIDE RECORDS SUMMARY | 2025-06-18 10:20 | XMS_ITS | Encounter Summary ---
Author Organization [facility] Address [address] [place] [address] Care Team Providers Care Feed Adviser Name Role Phone Mounika Brooke MD Primary Care Provider Mounika Brooke MD Unavailable Jennifer Short Unavailable Mounika Brooke MD Unavailable Janice Kevin SHELL MOLD BONDER Unavailable Annette Vega RN Unavailable Janice Kevin SHELL MOLD BONDER Unavailable Encounter Details DateTypeDepartmentCare Team (Latest Contact Info)Tdhahokaltu92/01/2024Clinisync Result Encounter [facility] External Department Unsolicited Jennifer Short PA [address] [place] [address] Social History Tobacco UseTypesPacks/DayYears UsedDateSmoking Tobacco: NeverSmokeless Tobacco: NeverAlcohol UseStandard Drinks/WeekCommentsNever0 (1 standard drink = 0.6 oz pure alcohol)caffeine 1-2 cups per dayOverall Financial Resource Strain (CARDIA) AnswerDate RecordedHow hard is it for you to pay for the very basics like food, housing, medical care, and heating?Somewhat hard04/11/2025PHQ-2AnswerDate RecordedPatient Health Questionnaire-2 Avjit844[facility] [place] of Occupational Health - Occupational Stress QuestionnaireAnswerDate [...] were you homeless or living in a correction (including now)?No04/11/2025Sex and Gender InformationValueDate Recorded Sex Assigned at BirthNot on fileLegal NyyAhcg6411/02/2022 7:40 PM EDTGender IdentityNot on fileSexual OrientationNot on filedocumented as of this encounter Functional Status * Over the past 2 weeks, how often have you been bothered by any of the following problems?QuestionAnswerDate of AssessmentAuthorLittle interest or pleasure in doing thingsNot at all12/04/2024 2:27 PM Mounika Calvillo MD Feeling down, depressed, or hopelessSeveral days12/04/2024 2:27 PM Mounika Calvillo MDPatient Health Questionnaire-2 Afknc214 2:27 PM Mounika Calvillo MD documented as of this encounter Plan of Treatment DateTypeDepartmentCare Team (Latest Contact Info)Xgfzvregcxp88/15/2026 1:10 PM ESTOffice Visit [facility] [place] [facility] [address] [place] [address] Kayla Sweeney MD [address] [place] [address] 12/01/2025 8:30 AM EDTOffice Visit [facility] [address] [place] [address] Perlita Wills MD [address] [place] [address] documented as of this encounter Procedures Procedure NamePriorityDate/TimeAssociated DiagnosisCommentsXR CHEST 2 VIEWS 06/21/2024 2:46 PM EDT documented in this encounter Results * XR CHEST 2 VIEWS (06/21/2024 2:46 PM EDT)Anatomical RegionLateralityModality OtherSpecimen (Source)Anatomical Location / LateralityCollection Method / VolumeCollection TimeReceived Time06/21/2024 2:46 PM EDT Narrative 06/21/2024 4:53 PM EDT Exam Date/Time: 06/21/2024 14:55 EDT Reason for Exam: R05.3, R07.89 Report IMPRESSION: ??LEFT LOWER LOBE SUBSEGMENTAL ATELECTASIS/PNEUMONIA. CLINICAL INFORMATION: ??R05.3, R07.89 COMPARISON: ??11/11/2023. FINDINGS: ??Osseous structures intact. Cardiopericardial silhouette normal. Pulmonary vasculature normal. Left diaphragm elevated, unchanged. Oblique band of increased opacity left lower lung. Right lung clear. Ordering Provider: Jennifer SHORT FINAL REPORT Dictated: ??06/21/2024 4:50 pm ? Signer Anibal LYMAN Signed (Electronic Signature): ??06/21/2024 4:50 pm Signed by: ??SignAnibal treviño MD Transcribed by: ??DP ? Technologist: ??LKS Technical Comments Radiation Dose: Ka,r in mGy [...] in mGy = na DAP = na Authorizing ProviderResult TypeResult StatusDeshellie Short PACLINISYN IMAGINGFinal Result documented in this encounter Visit Diagnoses Not on filedocumented in this encounter Care Teams Team MemberRelationshipSpecialtyStart DateEnd Date Mounika Brooke MD [address] [place] [address] PCP - [facility]07/27/23 Mounika Brooke MD [address] [place] [address] [facility]/ Mounika Brooke MD [address] [place] [address] PCP [facility]11/19/24 Jennifer Short PA [address] [place] [address] Physician AssistantStillman Infirmary Itemzugq62/4/24 Janice Kevin LSW [address] [place] [address] Social WorkerStillman Infirmary Medicine Annette Vega, RN [address] [place] [address] Registered NurseFaframingham union hospital Medicine04/09/25 Janice Kevin LSW [address] [place] [address] Social WorkerStillman Infirmary Medicine04/10/25documented as of this encounter
--- OUTSIDE RECORDS SUMMARY | 2025-06-18 10:20 | XMS_ITS | Continuity of Care Document ---
Author Organization [facility] Address [address] [place] [address] Phone [phone] Care Team Providers Care Fabrication And Assembly Supervisor Name Role Phone Nito Brooke DO Care Team Information Manager Endoscopy [phone] Assessments Date Code Description Provider 09/14/2023 N17.9 Acute kidney failure, unspec ified Sasha Stevens 09/14/2023 R33.9 Retention of urine, unspecif ied Sasha Stevens 09/14/2023 E87.5 Hyperkalemia Sasha Stevens 09/14/2023 N18.31 Chronic kidney disease, stag e 3a Sasha Stevens 09/13/2023 N17.9 Acute kidney failure, unspec ified Flakitamonse Morgan M.D. 09/13/2023 R33.9 Retention of urine, unspecif ied Flakitajojo Morgan M.D. 09/13/2023 E87.5 Hyperkalemia Flakitaojjo Morgan M.D. 09/13/2023 N18.31 Chronic kidney disease, [...]
--- OUTSIDE RECORDS SUMMARY | 2025-06-18 10:20 | XMS_ITS | Encounter Summary ---
Author Organization [facility] Address [address] [facility] [place] [address] Care Team Providers Care Optometric Aide Name Role Phone Mounika Brooke MD Primary Care Provider Jennifer Orta Unavailable Mounika Brooke MD Unavailable Annette Vega RN Unavailable [phone] Janice Kevin SENIOR FRONT END WEB DEVELOPER Unavailable Encounter Details DateTypeDepartmentCare Team (Latest Contact Info)Jxgknmpobmy16/16/2025amboo flowsheet [facility] [place] [facility] [address] [place] [phone] Kayla Sweeney MD [address] [place] [address] Social History Tobacco UseTypesPacks/DayYears UsedDateSmoking Tobacco: NeverSmokeless Tobacco: NeverAlcohol UseStandard Drinks/WeekCommentsNever0 (1 standard drink = 0.6 oz pure alcohol)caffeine 1-2 cups per dayOverall Financial Resource Strain (CARDIA) AnswerDate RecordedHow hard is it for you to pay for the very basics like food, housing, medical care, and heating?Somewhat hard04/11/2025PHQ-2AnswerDate RecordedPatient Health Questionnaire-2 Fjygy687Finogden regional medical center [place] of Occupational Health - Occupational Stress QuestionnaireAnswerDate [...] homeless or living in a alf (including now)?No04/11/2025Sex and Gender InformationValueDate Recorded Sex Assigned at BirthNot on fileLegal EegFhuk2311/02/2022 7:40 PM EDTGender IdentityNot on fileSexual OrientationNot on filedocumented as of this encounter Plan of Treatment DateTypeDepartmentCare Team (Latest Contact Info)Oayxspcenyl55/15/2026 1:10 PM ESTOffice Visit [facility] [place] [facility] [address] [place] [address] Kayla Sweeney MD [address] [place] [address] 12/01/2025 8:30 AM EDTOffice Visit [facility] [address] [place] [phone] Perlita Wills MD [address] [place] [address] documented as of this encounter Visit Diagnoses Not on filedocumented in this encounter Care Teams Team MemberRelationshipSpecialtyStart DateEnd Date Mounika Brooke MD [address] [place] [address] PCP - GeneralFamily Ffebival16/7/23 Mounika Brooke MD [address] [place] [address] PCP - [facility]11/19/24 Jennifer Orta PA [address] [place] [address] Physician Assistantmily Pgzbcvsy76/4/24 Annette Vega, RN [address] [place] [address] Registered NurseFandly Medicine04/09/25 Janice Kevin LSW [address] [place] [address] Social Workermily Medicine04/10/25documented as of this encounter
--- OUTSIDE RECORDS SUMMARY | 2025-06-18 10:20 | XMS_ITS | Clinical Summary ---
Author Organization [facility] Address [address] [place] [address] Phone Care Team Providers Care [employer] Name Role Phone Mounika Brooke MD Primary Care Provider [phone] Allergies Active AllergyReactionsCriticalityNoted DateCommentsPenicillamineUnknown 1400FjrgukvlgkwOpnwJewtbn70/13/2015 Medications MedicationSigDispense QuantityRefillsLast FilledStart DateEnd DateStatus albuterol 90 mcg/actuation inhaler Inhale 2 puffs every 4 hours if needed.11/03/2022ctive atorvastatin (Lipitor) 40 mg tablet Take 1 tablet (40 mg) by mouth once daily.08/15/2023ctive budesonide-formoteroL (Symbicort) 160-4.5 mcg/actuation inhaler Inhale 2 puffs 2 times a day.05/09/2023ctive DULoxetine (Cymbalta) [address] capsule Take 1 capsule (60 mg) by mouth once daily.Active empagliflozin (Jardiance) 10 mg Take 1 tablet (10 mg) by mouth once daily.10/28/2023ctive gabapentin (Neurontin) 600 mg tablet Take 1 tablet (600 mg) by mouth 3 times a day.09/07/2023ctive hydrALAZINE (Apresoline) 10 mg tablet Take 1 tablet (10 mg) by mouth every 12 hours.10/28/2023ctive insulin regular (HumuLIN R,NovoLIN R) 100 unit/mL injection Inject 15 Units under the skin.Active lisinopriL-hydrochlorothiazide 20-25 mg tablet Take 1 tablet by mouth once daily.06/21/2023ctive losartan (Cozaar) 100 mg tablet Take 1 tablet (100 mg) by mouth once daily.05/22/2023ctive pantoprazole (ProtoNix) 40 mg EC tablet Take 1 tablet (40 mg) by mouth once daily.Active potassium chloride ER (Micro-K) 10 mEq ER capsule Take 1 capsule (10 mEq) by mouth once daily.06/21/2023ctive predniSONE (Deltasone) 10 mg tablet Take 1 tablet (10 mg) by mouth once daily.06/15/2023ctive tamsulosin (Flomax) 0.4 mg 24 hr capsule Take 1 capsule (0.4 mg) by mouth once daily.10/02/2023ctive rOPINIRole (Requip) 1 mg tablet Take 1 tablet (1 mg) by mouth once daily at bedtime.05/22/2023ctive torsemide (Demadex) 20 mg tablet Take 3 tablets (60 mg) by mouth 3 times a day.10/12/2023ctive Active Problems ProblemNoted DateDiagnosed DateAcute pulmonary edema10/26/2023cute on chronic congestive heart pywqvcn9010/25/2023cute on chronic heart failure with preserved ejection teuxvfes22/05/2024Fluid lwxjgawf33/05/2024 Overview (11/14/2023): Last Assessment & Plan: 10 [...] scan done low prob for PE dc hepgtt - Diurese - IV lasix 40 TID ; on 40 torsemide daily at home - Fluid restriction, daily weights,strict I/Os - Compression stockings or Gustavo wrap, elevate legs - Echocardiogram ordered - Tele - Follow CBC, BMP Obesity, Class III, BMI 40-49.9 (morbid obesity)10/24/2023Systolic congestive heart xudiwdl6110/24/2023hronic hypoxemic respiratory yxjfhbm9209/27/2023cute respiratory failure with hypoxia and jkerapteebz43/13/2023OSA (obstructive sleep apnea)07/03/2023bsence of toe06/13/2023 Overview (11/14/2023): noted on 12/09/2018 XR Foot 3+ Views Right. added per outpatient CDI policy. Dgqgwg5606/13/2023hronic cough06/13/2023alance udbvyuwz41/24/2023iabetic 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 2 diabetes mellitus 06/13/2023 Overview (11/14/2023): noted in 03/11/2021 Diabetic Eye Exampage 5. added per outpatient CDI policy. Cramps of lower yefoqzzac32/24/2023iabetic swdekmpxgi59/24/2023astroesophageal reflux tbpnbni9706/13/2023Morbid ejmxbxf5106/13/2023Lymphedema of both lower ryxezwsncnn01/24/1254Fervvvcxxdyirp76/24/2023Status post transmetatarsal amputation of left foot06/13/2023Stage 3b chronic kidney ufqfnyq4306/13/2023 Overview (11/14/2023): Last Assessment & Plan: See fluidoverload Cr 1.84 BUN 48 Continue taylor catheter This is a chronic catheter Echo with preserved LV AMY on CKD stage III prerenal most likely 2/2 cardiorenal pathology Nephrology following continue flomax Restless leg rrhbrpma66/24/2023 Overview (11/14/2023): Last Assessment & Plan: Symptoms uncontrolled - Increase requip - Continue gabapentin Primary nzjkphlptekp39/24/2023 Overview (11/14/2023): Last Assessment & Plan: BP controlled Continue [employer] hydralazine Primary jlpdbmfqefsznz25/24/2023Osteoarthritis of knee06/13/2023Onychomycosis 06/13/2023Type 2 diabetes mellitus with qbwynulmscpgk37/24/2023Varicose veins of lower hcktyirwg17/24/2023 Immunizations ImmunizationAdministration DatesNext DueFlu vaccine (IIV4), preservative free *Check age/dose*05/22/2023,06/17/2022,07/20/2021Influenza, injectable, fudwixudcqni95/15/2019,08/07/2018Pneumococcal polysaccharide vaccine, 23-valent, age 2 years and older (PNEUMOVAX 23)08/07/2018,08/07/2018,11/24/2015 Social History Tobacco UseTypesPacks/DayYears UsedDateSmoking Tobacco: Never AssessedSex and Gender InformationValueDate RecordedSex Assigned at BirthNot on fileLegal Sex Male07/15/2022 8:32 PM ESTGender IdentityNot on fileSexual OrientationNot on file Plan of Treatment Health MaintenanceDue DateLast DoneCommentsCT Tpvgxijosxrt1959Colonoscopy 1959Colorectal Cancer Hedxghonx1959Creatinine Level1959 Diabetes: Urine Protein Vqhkxjhqt1959FIT-DNA (Cologuard)1959FIT 1959Lipid Panel1959Medicare Annual Wellness Visit (AWV)1959 Potassium Level1959 5621Mkjxigbkcqvad1959MMR Vaccines (1 of 1 - Standard series)01/08/1960Diabetes: Retinopathy Jbahxhkoy75/20/1969Hepatitis C Screening 1977DTaP/Tdap/Td Vaccines (1 - Tdap)1981PSA Prostate Cancer Wtovzghic83/20/2009RSV High Risk: (Elderly (60+) or Population) (1 - Risk 50-74 years 1-dose series)2009Zoster Vaccines (1 of 2)2009 Pneumococcal Vaccine (2 of 2 - PCV), 08/07/2018, 11/24/2015 Diabetes: Hemoglobin A1C//12/20234786Meygznwbnwsmpl65/17/042666/ Influenza Vaccine (#1)/09/2022, 06/17/2022, 07/20/2021, Additional history existsCOVID-19 Vaccine ( season)510/, 07/27/2021, 12/03/2020, Additional history existsHIB VaccinesAged OutNo longer eligible based on patient's age to complete this topicHPV VaccinesAged OutNo longer eligible based on patient's age to complete this topicHepatitis A VaccinesAged OutNo longer eligible based on patient's age to complete this topic Hepatitis B VaccinesAged OutNo longer eligible based on patient's age to complete this topicIPV VaccinesAged OutNo longer eligible based on patient's age to complete this topicMeningococcal VaccineAged OutNo longer eligible based on patient's age to complete this topicRotavirus VaccinesAged OutNo longer eligible based on patient's age to complete this topic Procedures Procedure NamePriorityDate/TimeAssociated DiagnosisCommentsECHOCARDIOGRAM 10/07/2023 from Last 3 Months or Most Recently Relevant to Health Maintenance Results * ECHOCARDIOGRAM (10/07/2023) Narrative 10/07/2023 Ordered by an unspecified provider. Authorizing ProviderResult TypeResult StatusGeneric Provider ScanningCV ECHO PROCEDURESFinal Result from Last 3 Months or Most Recently Relevant to Health Maintenance Insurance * Guarantor: Oliverio Woodward AAccount TypeRelation to PatientDate of BirthPhoneBilling AddressPersonal/RclbzzTrhj1960 [address] [address] * Guarantor: Oliverio Woodward AAccount TypeRelation to PatientDate of BirthPhoneBilling AddressPersonal/UjbtmgMzfu1960 [address] [address] Care Teams Team MemberRelationshipSpecialtyStart DateEnd Mounika Brooke MD [address] [place] [address] [facility] - [facility]
--- OUTSIDE RECORDS SUMMARY | 2025-06-18 10:20 | XMS_ITS | Clinical Summary ---
Author Organization [facility] Address [address] [place] [address] Care Team Providers Care Cheese Cooker Name Role Phone Mounika Brooke MD Primary Care Provider [phone] Jennifer Orta Unavailable [phone] Mounika Brooke MD Unavailable [phone] Annette Vega RN Unavailable [phone] Janice Kevin DIRECTOR SECURITY RISK MANAGEMENT Unavailable Allergies Active AllergyReactionsCriticalityNoted DateCommentsPenicillamineUnknown 5512ZdbxgjgsehwOyzcTgmvay06/13/2015 Medications MedicationSigDispense QuantityRefillsLast FilledStart DateEnd DateStatus albuterol HFA 90 mcg/act inhaler Inhale 2 puffs every 4 (four) hours if pboufh5911/03/2022ctive pen needle 31G x 8 mm misc Indications:Type 2 diabetes mellitus with hyperglycemia, with long-term current use of insulin (HCC)Use as instructed 100 each 121415Active Misc. Devices (Cane) misc Indications:Difficulty walking1 each continuously 1 each 4Active losartan (Cozaar) 100 MG tablet Indications:Type 2 diabetes mellitus with hyperglycemia, with long-term current use of insulin (HCC)Take 1 tablet (100 mg) by mouth Daily 100 tablet 5Active Additional Information Patient taking differently:100 mg Oral Daily,(No times of day reported), Reported on 06/05/2025 glucose blood (OneTouch Verio) test strip Indications:Type 2 diabetes mellitus with hyperglycemia, with long-term current use of insulin (HCC)USE TO TEST BLOOD SUGARS THREE TIMES A DAY. 300 each 5Active Alcohol Swabs (Alcohol Prep) 70 % pads USE TO TEST BLOOD SUGAR 3 TIMES PER DAY12/21/2024tive Blood Glucose Monitoring Suppl (Rethink Verio Flex System) w/Device kit USE DIRECTED TO TEST BLOOD SUGAR12/24/2024tive B-D UF III MINI PEN NEEDLES 31G X 5 MM misc USE TO INJECT INSULIN UP TO 3 TIMES PER DAY12/21/2024tive cyclobenzaprine (Flexeril) 10 MG tablet Indications:Neck painTake 1 tablet (10 mg) by mouth at bedtime 30 tablet 04/29/2025tive DULoxetine (Cymbalta) [address] capsule Indications:AnxiousnessTake 2 capsules (120 mg) by mouth Daily 180 capsule ctive Additional Information Patient taking differently:120 mg Oral Daily,(No times of day reported), Reported on 06/05/2025 linaGLIPtin (Tradjenta) 5 MG tablet Indications:Type 2 diabetes mellitus with hyperglycemia, with long-term current use of insulin (HCC)Take 1 tablet (5 mg) by mouth Daily 90 tablet ctive gabapentin (Neurontin) 800 MG tablet Indications:Type 2 diabetes mellitus with hyperglycemia, with long-term current use of insulin (HCC)Take 1 tablet (800 mg) by mouth in the morning and 1 tablet (800 mg) in the evening and 1 tablet (800 mg) before bedtime. 90 tablet 6Active insulin glargine (Lantus SoloStar) 100 UNIT/ML pen Indications:Type 2 diabetes mellitus with hyperglycemia, with long-term current use of insulin (HCC)Inject 80 Units under the skin at bedtime 3 mL /6Active insulin aspart, with niacinamide, (Fiasp FlexTouch) 100 UNIT/ML injection Indications:Type 2 diabetes mellitus with hyperglycemia, with long-term current use of insulin (HCC)Inject 40 Units under the skin in the morning and 40 Units at noon and 40 Units in the evening. Inject with meals. 108 mL /6Active Continuous Blood Gluc Yard Supervisor (FreeStyle Sage 3 [place]) device Indications:Type 2 diabetes mellitus with hyperglycemia, with long-term current use of insulin (HCC),Long-term insulin use (HCC)1 each continuously 1 each /Discontinued(Other) Continuous Blood Gluc Sensor (FreeStyle Sage 3 Sensor) [facility] Indications:Type 2 diabetes mellitus with hyperglycemia, with long-term current use of insulin (HCC),Long-term insulin use (HCC)1 each every 14 (fourteen) days 6 each /Discontinued(Other) gabapentin (Neurontin) 600 MG tablet Indications:Type 2 diabetes mellitus with hyperglycemia, with long-term current use of insulin (HCC)Take 1 tablet (600 mg) by mouth in the morning and 1 tablet (600 mg) in the evening and 1 tablet (600 mg) before bedtime. 90 tablet Discontinued(Reorder) linaGLIPtin (Tradjenta) 5 MG tablet Indications:Type 2 diabetes mellitus with hyperglycemia, with long-term current use of insulin ([facility])Take 1 tablet (5 mg) by mouth Daily 90 tablet Discontinued(Reorder) insulin regular (HumuLIN R U-500 KWIKPEN) 500 UNIT/ML CONCENTRATED injection Indications:Type 2 diabetes mellitus with hyperglycemia, with long-term current use of insulin ([facility])Inject 50 Units under the skin in the morning and 50 Units in the evening and 50 Units before bedtime. 27 mL Discontinued(Formulary change) hydrALAZINE (Apresoline) 10 MG tablet Indications:AnxiousnessTake 1 tablet (10 mg) by mouth every 12 (twelve) hours 180 tablet Discontinued(Therapy completed) NovoLOG FLEXPEN 100 UNIT/ML pen Discontinued(Formulary change) Basaglar KwikPen 100 UNIT/ML pen Inject 30 Units under the skin in the morning and 30 Units before bedtime. Discontinued(Formulary change) Active Problems ProblemNoted DateDiagnosed JhgvDpisrpjiyoqtv36/28/2025Dietary counseling and lhagexhchlzt38/09/2024Vitamin D deficiency, cfkuasglqrt43/09/2024hest wall pain 06/21/2024(HFpEF) heart failure with preserved ejection brdgnzef60/09/2024cute on chronic respiratory failure with hypoxia and /09/2024 Assessment & Plan (04/29/2024 2:50 PM EDT): Stable, continue to monitor. No change in regimen. Discussed concerning sx to monitor for. Continue oxygen use - pt would benefit from portable oxygen BPH with urinary hsfprquahrn90/09/2024Obesity hypoventilation dyauzxaz96/09/2024 Acute diastolic heart njwahfk7311/17/2023oordination ibyjfhv0311/17/2023iabetic ebqiudgs13/29/2024Late effect of internal injury to intra-abdominal organs 11/17/2023Muscle uwbygukp55/29/2024etention of urine11/17/2023hronic hypoxemic respiratory qudmyqx6609/27/2023 Assessment & Plan (04/29/2024 2:50 PM EDT): Stable, continue to monitor. No change in regimen. TC (obstructive sleep apnea)07/03/2023 Assessment & Plan (04/29/2024 2:50 PM EDT): Stable, continue to monitor. No change in regimen. Absence of toe ([facility]HS-HCC)06/13/2023 Overview (06/13/2023): noted on 12/09/2018 XR Foot 3+ Views Right. added per outpatient [facility] policy. Sttwwa5706/13/2023alance attwnkmh30/24/2023hronic cough06/13/2023ramps of lower ykfmxrzvi26/24/2023Diabetic macular edema (DME) with retinopathy associated with type 2 diabetes apaoyayg01/24/2023 Overview (03/17/2025): noted in 03/11/2021 Diabetic Eye Exam page 5. added per outpatient [facility] policy. noted in 03/11/2021 Diabetic Eye Exam page 5. added per outpatient [facility] policy. Assessment & Plan (04/29/2024 2:52 PM EDT): Encouraged follow up with optho Diabetic ixfjuuhcbm99/24/2023 Assessment & Plan (04/29/2024 2:49 PM EDT): Stable, continue to monitor. No change in regimen. Gastroesophageal reflux vonckmu9406/13/2023 Assessment & Plan (04/29/2024 2:51 PM EDT): Stable, continue to monitor. No change in regimen. Hjlfhcvjcbyzha85/24/2023 Assessment & Plan (04/29/2024 2:52 PM EDT): Stable, continue to monitor. No change in regimen. Kbgrmwxzgbfo13/24/2023 Assessment & Plan (04/29/2024 2:50 PM EDT): Stable, continue to monitor. No change in regimen. Osteoarthritis of knee06/13/2023rimary ochaygtllrzqkl95/24/2023Long-term insulin use06/13/2023Lymphedema of both lower gxrnrzsaujz83/24/2023Morbid gmdixbf9806/13/2023 Assessment & Plan (04/29/2024 2:51 PM EDT): - continue to monitor weight Goojzuxcatnoh58/24/2023Restless leg gaibncpx67/24/2023 Assessment & Plan (04/29/2024 2:49 PM EDT): Currently uncontrolled as pt is out of meds. Refill sent of increased dose Chronic kidney disease, stage 3b06/13/2023 Assessment & Plan (04/29/2024 2:51 PM EDT): Stable, continue to monitor. No change in regimen. Status post transmetatarsal amputation of left foot06/13/2023Type 2 diabetes mellitus with qbzckkdmadpja48/24/2023 Assessment & Plan (04/29/2024 2:51 PM EDT): - Uncontrolled, A1c > 13 - encouraged follow up with endo Varicose veins of lower uehdwbbhi40/24/2023 Assessment & Plan (04/29/2024 2:51 PM EDT): Continue to follow w/ vascular Resolved Problems ProblemNoted DateDiagnosed DateResolved VorwSmguficslv22ody mass index (BMI) 45.0-49.9, adulthronic obstructive pulmonary disease with (acute) frtlajsdqvbu37cute exacerbation of chronic obstructive pulmonary /5Acute hypoxemic respiratory djowjqu43/KD (chronic kidney disease) 3Knee joint pohrkqao39Low back pain ain in right kneeolyneuropathy due to type 2 diabetes bhusimbr99Type 2 diabetes fsxkfgsy78/24/2023 07/03/2023Type 2 diabetes mellitus with morbid reutbtb49 Overview (06/13/2023): linked DM with HLD per outpatient [facility] policy. Encounters DateTypeDepartmentCare GsodLcqmstsjosq22/21/2025Patient Outreach [facility] [address] [place] [address] Janice Kevin LSW 06/06/2025Patient Outreach [facility] [address] [place] [address] Annette Vega, RAFAEL 06/06/2025Patient Outreach [facility] [address] [place] [address] Annette Vega, RAFAEL 06/05/2025 1:10 PM EDTOffice Visit [facility] [address] [place] [address] Kayla Sweeney MD Type 2 diabetes mellitus with hyperglycemia, with long-term current use of insulin (HCC) (Primary Dx); Insulin long-term use (HCC); Vitamin D deficiency; Encounter for dietary consultation; Hyperlipemia, mixed; Primary gnwfcnugtcgy05/16/2025amboo flowsheet [facility] [address] [place] [address] Kayla Sweeney MD 06/02/2025 8:30 AM EDTOffice Visit [facility] [address] [place] [address] Perlita Wills MD 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, unspecified proliferative retinopathy type (HCC) (Primary Dx); 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1 diabetes mellitus (HCC)06/02/2025amb flowsheet [facility] [address] [place] [address] Perlita Wills MD 06/02/20252989Uijyva14/06/2025Patient Outreach [facility] [address] [place] [address] Janice Kevin LSW 05/13/2025Patient Outreach [facility] [address] [place] [address] Annette Vega RN 04/29/2025 11:00 AM EDTOffice Visit [facility] [place] [address] [place] [phone] Mounika Brooke MD Grief (Primary Dx); Anxiousness; Neck pain; Type 2 diabetes mellitus with hyperglycemia, with long-term current use of insulin (HCC); Essential (primary) hypertension ; Morbid obesity ([facility]); BMI 36.0-36.9,adult04/29/2025amboo flowsheet [facility] [address] [place] [id number] Mounika Brooke MD 04/29/20256104Dfnyco34/08/2025Patient Outreach [facility] [address] [place] [place] [address] Janice Kevin, DIRECTOR SECURITY RISK MANAGEMENT 04/22/2025Patient Outreach [facility] [address] [place] [address] Annette Vega, RAFAEL 04/14/2025Patient Outreach [facility] [address] [place] [address] Janice Kevin, DIRECTOR SECURITY RISK MANAGEMENT 04/11/2025Patient Outreach [facility] [address] [place] [address] Annette Vega, RAFAEL 04/09/2025Patient Outreach [facility] [address] [place] [address] Annette Vega, RAFAEL 04/08/2025Patient Outreach [facility] [address] [place] [place] [address] Janice Kevin, DIRECTOR SECURITY RISK MANAGEMENT 04/02/2025Patient Outreach [facility] [address] [place] [address] Annette Vega, RAFAEL 03/31/2025Patient Outreach [facility] [address] [place] [address] Annette Vega, RAFAEL 03/26/2025Orders Only [facility] [address] [place] [address] Kayla Sweeney MD 03/26/2025Patient Outreach [facility] [address] [place] [address] Annette VegaRAFAEL 03/24/2025Patient Outreach [facility] [address] [place] [address] Annette Vega RN 03/24/2025Patient Outreach [facility] [address] [place] [address] Janice Kevin LSW 03/24/2025Telephone [place] [address] [place] [address] Mounika Brooke MD Care Ninotgwuromv17/30/2025Patient Outreach [facility] [address] [place] [address] Janice Kevin, JACK from Last 3 Months Immunizations ImmunizationAdministration DatesNext DueInfluenza, Recombinant, injectable, preservative free12/04/2024Influenza, Tcdmyrzcinh43/18/2018Influenza, injectable, ntwyepzfwzyi72/15/2019,08/07/2018Influenza, injectable, quadrivalent, preservative free05/22/2023,06/17/2022,1PPD Test 11/24/2023,4Pneumococcal Conjugate PCV Pneumococcal Polysaccharide WSLJ295910/08/2017,08/07/2018,11/24/20152513EDWT-ASH-6 (COVID-19) vaccine, mRNA, spike protein, LNP, bivalent, preservative free, 30 mcg/0.3 mL dose, patel-sucrose ubjnsvxjkao80/28/4608VACE-VhO-6, Slksmoisnxa43/28/2022 Family History Medical HistoryRelationNameCommentsEmphysemaFatherRelationNameStatusComments FatherDeceasedMotherDeceased Social History Tobacco UseTypesPacks/DayYears UsedDateSmoking Tobacco: NeverSmokeless Tobacco: Never Tobacco Cessation:Counseling Given: Not Answered Alcohol UseStandard Drinks/WeekCommentsNever0 (1 standard drink = 0.6 oz pure alcohol)caffeine 1-2 cups per dayOverall Financial Resource Strain (CARDIA) AnswerDate RecordedHow hard is it for you to pay for the very basics like food, housing, medical care, and heating?Somewhat hard04/11/2025PHQ-2AnswerDate RecordedPatient Health Questionnaire-2 Twdcj631[place] human [facility] [place] of Occupational Health - Occupational Stress QuestionnaireAnswerDate [...] were you homeless or living in a long-term (including now)?No04/11/2025Sex and Gender InformationValueDate Recorded Sex Assigned at BirthNot on fileLegal NaaDnnz2611/02/2022 7:40 PM EDTGender IdentityNot on fileSexual OrientationNot on file Last Filed Vital Signs Vital SignReadingTime TakenCommentsBlood Ignfmnty269/801 1:20 PM EDT Aaubo951506/05/2025 1:20 PM OPJZuphbcpypzu18.2 ??C (97.2 ??F)04/29/2025 11:28 AM EDTRespiratory Gvdr1443 1:20 PM EDTOxygen Ubzpsznhma53%06/05/2025 1:20 PM EDTInhaled Oxygen Concentration--Ogmrdr39.3 kg (208 lb)06/05/2025 1:20 PM EDT Aqjolq743.3 cm (5' 11 )06/05/2025 1:20 PM EDTBody Mass Index29.011 1:20 PM EDT Plan of Treatment DateTypeDepartmentCare Team (Latest Contact Info)Lurgyhupsvk62/15/2026 1:10 PM ESTOffice Visit [facility] [address] [place] [address] Kayla Sweeney MD [address] [place] [address] 12/01/2025 8:30 AM EDTOffice Visit [facility] [address] [place] [address] Perlita Wills MD [address] [place] [address] Health MaintenanceDue DateLast DoneCommentsCT Emfpwhzckrmd1959Colonoscopy 1959Colorectal Cancer Yuejqbinc1959FIT-DNA1959FIT1960 FOBT1960 0391Naelozrrkdrlq1959MMR Vaccines (1 of 1 - Standard series) 01/08/1960DTaP/Tdap/Td Vaccines (1 - Tdap)1966COVID-19 Vaccine ( - season), 07/27/2021, 12/03/2020, Additional history existsInfluenza Vaccine (#1), 05/22/2023, 06/17/2022, Additional history existsDiabetes: Hemoglobin A1C61, 09/04/2024, 06/21/2024, Additional history existsDiabetes: Urine Protein Syqrawzaa01, 03/13/2025, 08/09/2023 (Manually Satisfied by [employer])Diabetes: Retinopathy Sdctpyibv21, 06/02/2025, 06/02/2025, Additional history existsPneumococcal Vaccine: 65+ YearsCompleted 12/04/2024, 08/07/2018, 08/07/2018, Additional history existsHIB VaccinesAged OutNo longer eligible based on patient's age to complete this topicHPV Vaccines Aged OutNo longer eligible based on patient's age to complete this topic Hepatitis A VaccinesAged OutNo longer eligible based on patient's age to complete this topicHepatitis B VaccinesAged OutNo longer eligible based on patient's age to complete this topicIPV VaccinesAged OutNo longer eligible based on patient's age to complete this topicMeningococcal B VaccineAged OutNo longer eligible based on patient's age to complete this topicMeningococcal VaccineAged OutNo longer eligible based on patient's age to complete this topicRotavirus VaccinesAged OutNo longer eligible based on patient's age to complete this topic Procedures Procedure NamePriorityDate/TimeAssociated DiagnosisCommentsPOCT GLYCOSYLATED HEMOGLOBIN (HGB A1C)Hrrmtfh0206/05/2025 1:25 PM EDT Type 2 diabetes mellitus with hyperglycemia, with long-term current use of insulin (HCC) POCT JJQYTUTFqdwrgg99/16/2025 1:25 PM EDT Type 2 diabetes mellitus with hyperglycemia, with long-term current use of insulin (HCC) RENAL FUNCTION JNIDULtdouts60/06/2025 3:35 PM EDTLIPID TCSWQTacjjcc35/06/2025 3:35 PM EDTMICROALBUMIN / CREATININE URINE XSHDWMqbxchu47/06/2025 3:35 PM EDT C-VQEJMRRMnmfwys56/06/2025 3:35 PM EDTVITAMIN D, 25-WQBJHFAVcofqgp85/06/2025 3:35 PM EDTfrom Last 3 Months Results * POCT glycosylated hemoglobin (Hb A1C) docked device (06/05/2025 1:25 PM EDT) ComponentValueRef RangeTest MethodAnalysis TimePerformed AtPathologist SignatureHemoglobin E1L00Aligdjvr (Source)Anatomical Location / Laterality Collection Method / VolumeCollection TimeReceived TimeBloodVenous blood specimen / Wpmbslk1806/05/2025 1:25 PM EDT Narrative Authorizing ProviderResult TypeResult StatusKayla Sweeney MDPOINT OF CARE TEST ENTER/EDIT ORDERABLESFinal Result * POCT glucose manually resulted (06/05/2025 1:25 PM EDT)ComponentValueRef Range Test MethodAnalysis TimePerformed AtPathologist SignatureGlucose Blood, KZT402 mg/dLSpecimen (Source)Anatomical Location / LateralityCollection Method / VolumeCollection TimeReceived TimeBloodCapillary blood specimen / Unknown 06/05/2025 1:25 PM EDT Narrative Authorizing ProviderResult TypeResult [facility] Patel MDPOINT OF CARE TEST ENTER/EDIT ORDERABLESFinal Result * LIPID PANEL (03/26/2025 3:35 PM EDT) Narrative Authorizing ProviderResult TypeResult [facility] Patel MDLAB BLOOD ORDERABLESFinal Result * VITAMIN D, 25-HYDROXY (03/26/2025 3:35 PM EDT) Narrative Authorizing ProviderResult TypeResult [facility] BLOOD ORDERABLESFinal Result * Microalbumin / creatinine urine ratio (03/26/2025 3:35 PM EDT)Specimen (Source)Anatomical Location / LateralityCollection Method / VolumeCollection TimeReceived TimeUrineUrine specimen obtained by clean catch procedure / Unknown Narrative Authorizing ProviderResult TypeResult [facility] Patel MDLAB URINE ORDERABLESFinal Result * C-peptide (03/26/2025 3:35 PM EDT)Specimen (Source)Anatomical Location / LateralityCollection Method / VolumeCollection TimeReceived TimeBloodVenous blood specimen / Unknown Narrative Authorizing ProviderResult TypeResult [facility] BLOOD ORDERABLESFinal Result * Renal function panel (03/26/2025 3:35 PM EDT)Specimen (Source)Anatomical Location / LateralityCollection Method / VolumeCollection TimeReceived Time BloodVenous blood specimen / Unknown Narrative Authorizing ProviderResult TypeResult [facility] BLOOD ORDERABLESFinal Result from Last 3 Months Insurance * Guarantor: [place] Woodward AAccount TypeRelation to PatientDate of BirthPhoneBilling AddressPersonal/QldkfiNgmx1960 [address] [place] [address] Care Teams Team MemberRelationshipSpecialtyStart DateEnd Mounika Brooke MD [address] [place] [address] [facility] - [facility] Ryatdesg33/[facility]/23 Mounika Brooke MD [address] [place] [address] PCP - [facility]11/19/24 Jennifer Orta PA [address] [place] [address] Physician Assistantmily Tlcrcwwn24/4/24 Annette Vega, RN [address] [place] [address] Registered NurseFamily Medicine04/09/25 Janice Kevin LSW [address] [place] [address] Social WorkerFaboston hope medical center Medicine04/10/25
--- OUTSIDE RECORDS SUMMARY | 2025-06-18 10:20 | XMS_ITS | Encounter Summary ---
Author Organization [facility] Address [address] [place] [address] Care Team Providers Care Rehabilitation Consultant Name Role Phone Mounika Brooke MD Primary Care Provider [phone] Deann Calles LPN Unavailable Mounika Brooke MD Unavailable Jennifer Orta Unavailable [phone] Mounika Brooke MD Unavailable [phone] Janice Kevin SOLAR SYSTEMS DESIGNER Unavailable Annette Vega RN Unavailable [phone] Janice Kevin SOLAR SYSTEMS DESIGNER Unavailable Encounter Details DateTypeDepartmentCare Team (Latest Contact Info)Jgyncyajsls17/04/2024Clinisync Result Encounter [facility] Unsolicited Provider, Generic External Data Social History Tobacco UseTypesPacks/DayYears UsedDateSmoking Tobacco: NeverSmokeless Tobacco: NeverAlcohol UseStandard Drinks/WeekCommentsNever0 (1 standard drink = 0.6 oz pure alcohol)caffeine 1-2 cups per dayOverall Financial Resource Strain (CARDIA) AnswerDate RecordedHow hard is it for you to pay for the very basics like food, housing, medical care, and heating?Somewhat hard04/11/2025PHQ-2AnswerDate RecordedPatient Health Questionnaire-2 [id number] fork hospital [place] of Occupational Health - Occupational Stress QuestionnaireAnswerDate [...] homeless or living in a snf (including now)?No04/11/2025Sex and Gender InformationValueDate Recorded Sex Assigned at BirthNot on fileLegal TavXygw9211/02/2022 7:40 PM EDTGender IdentityNot on fileSexual OrientationNot on filedocumented as of this encounter Functional Status * Over the past 2 weeks, how often have you been bothered by any of the following problems?QuestionAnswerDate of AssessmentAuthorLittle interest or pleasure in doing thingsNot at all12/04/2024 2:27 PM Mounika Calvillo MD Feeling down, depressed, or hopelessSeveral days12/04/2024 2:27 PM Mounika Calvillo [facility]-2 [id number] 2:27 PM Mounika Calvillo MD documented as of this encounter Plan of Treatment DateTypeDepartmentCare Team (Latest Contact Info)Sdbfbsbcqos93/15/2026 1:10 PM ESTOffice Visit [facility] [address] [place] [address] Kayla Sweeney MD [address] [place] [address] 12/01/2025 8:30 AM EDTOffice Visit [facility] [address] [place] [address] Perlita Wills MD [address] [place] [address] documented as of this encounter Procedures Procedure NamePriorityDate/TimeAssociated DiagnosisCommentsECG 12-LEAD10/23/2023 8:16 PM EST documented in this encounter Results * ECG 12 lead (10/23/2023 8:16 PM EST)Specimen (Source)Anatomical Location / LateralityCollection Method / VolumeCollection TimeReceived Time10/23/2023 8:16 PM EST Narrative [facility] - 10/24/2023 10:36 AM EST Ventricular Rate : 77 BPM Atrial Rate ?: 78 ?BPM P-R Interval ? : 180 ? ms QRS Duration ? : 97 ?ms Q-T Interval ? : 389 ? ms QTC Calculation(Bazett) ?: 441 ? ms Calculated P [place] ?: 53 ?degrees Calculated R [place] ?: -76 ? degrees Calculated T [place] ?: 65 ?degrees Sinus rhythm Left anterior fascicular block Abnormal ECG no stemi Confirmed by DARNELL YIN MD ([id number]), photography editor ANNETTE ROSALES ([id number]) on 10/24/2023 10:36:37 AM NAME : GENOMONTRELL PID : [id number] : 1960 ?? Gender : Male Race : ORD : [id number] ? Procedure Date : Oct 23 2023 20:16:04 Edit Date : Oct 24 2023 10:36:39 ? Diagnosis: Sinus rhythm Left anterior fascicular block Abnormal ECG ? no stemi ?? Confirmed by DARNELL YIN MD ([id number]), photography editor ANNETTE ROSALES ([id number]) on 10/24/2023 10:36:37 AM ? Test Reason : Other - Specify ? Location : 402 : FVED ??fved55 ? Overread By : DARNELL YIN MD Edited By : ANNETTE ROSALES Referred By : , Acquired by : [id number], Procedure Note Radiology, Radiologist, - 10/24/2023 Ventricular Rate : 77 BPM Atrial Rate : 78 BPM P-R Interval : 180 ms QRS Duration : 97 ms Q-T Interval : 389 ms QTC Calculation(Bazett) : 441 ms Calculated P [place] : 53 degrees Calculated R [place] : -76 degrees Calculated T [place] : 65 degrees Sinus rhythm Left anterior fascicular block Abnormal ECG no stemi Confirmed by DARNELL YIN MD ([id number]), photography editor ANNETTE ROSALES ([id number]) on10/24/2023 10:36:37 AM NAME : MONTRELL LORA PID : [id number] : 1960 Gender : Male Race : ORD : [id number] Procedure Date : Oct 23 2023 20:16:04 Edit Date : Oct 24 2023 10:36:39 Diagnosis: Sinus rhythm Left anterior fascicular block Abnormal ECG no stemi Confirmed by DARNELL YIN MD ([id number]), photography editor ANNETTE ROSALES ([id number]) on10/24/2023 10:36:37 AM Test Reason : Other - Specify Location : 402 : [facility] fved55 Overread By : DARNELL YIN MD Edited By : ANNETTE ROSALES Referred By : , Acquired by : [id number], Authorizing ProviderResult TypeResult StatusGeneric External Data ProviderECG ORDERABLESFinal ResultPerforming OrganizationAddressCity/State/ZIP CodePhone Number [facility] documented in this encounter Visit Diagnoses Not on filedocumented in this encounter Care Teams Team MemberRelationshipSpecialtyStart DateEnd Date Mounika Brooke MD [address] [place] [address] PCP - GeneralFamily Ceenrmio45/7/23 Mounika Brooke MD [address] [place] [address] PCP - / Mounika Brooke MD [address] [place] [address] PCP - [facility]11/19/24 Deann Calles LPN [address] [place] [address] Licensed Practical NurseFamily Medicine Jennifer Orta PA [address] [place] [address] Physician AssistantFamily Xeyzwgkx03/4/24 Janice Kevin LSW [address] [place] [address] Social Workermi Medicine/ Annette Vega, RN [address] [place] [address] Registered NurseFamily Medicine04/09/25 Janice Kevin LSW [address] [place] [address] Social WorkerChelsea [facility] Medicine04/10/25documented as of this encounter
== END 2025-06-18 10:19 | disposition home or self-care (01) ==
LOC: WC 10:18
PROVIDERS: Visit Provider Physician Assistant
DX: E11.621 Type 2 diabetes mellitus with foot ulcer (principal); L97.422 Non-pressure chronic ulcer of left heel and midfoot with fat layer exposed
CPT/HCPCS: 29445

== ENCOUNTER 2025-07-08 14:24 | Outpatient (OUT) | payer OTHER, SELFPAY ==
--- OUTSIDE RECORDS SUMMARY | 2025-07-08 14:34 | XMS_ITS | CCD ---
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 Primary Care Provider DO Art Kirby Emergency Provider DO Alban Chavez Admit Provider [phone] DO Alban Arrington Attending Provider [phone] MD Amrik De Guzman Other Provider MD [...] Unavailable Mounika Brooke MD Primary Care Provider [phone] Gurmeet LYMAN, Naun Unavailable MD Mounika Brooke Primary Care Provider [phone] DO Jason Mercado M Emergency Provider [phone] DO Tera Nevarez Admit Provider MD Hood Zacarias Other Provider MD Yesi Murphy Attending Provider [phone] SOFIE Alexander Other Provider Unavailable MD Bladimir Story Other Provider MD Immanuel Pozo Other Provider MD Satnam Guevara Other Provider MD Gigi Cooper Other Provider MD Manish Fu Attending Provider Mounika Brooke MD Primary Care Provider Mendy LYMAN, Mounika Lugo Unavailable Marivel ROWAN, Jennifer Nunez Unavailable [phone] Smooth Harrington Attending Unavailable Dolce, Smooth Elizondo Attending Unavailable Hajdari, Astrit H Attending Unavailable COOK, Taz P Referring Unavailable COOK, Taz P Admitting Unavailable COOK, Taz P Attending Unavailable COOK, Taz P Attending Unavailable COOK, Taz P Referring Unavailable COOK, Taz P Admitting Unavailable COOK, Taz P Admitting Unavailable COOK, Taz P Attending Unavailable [facility]io, XXXX Consulting Unavailable Moussawi, Ahmad Admitting [...] Primary Care Provider Mounika Brooke MD Unavailable [facility] Unavailable Nicole Myers Attending Unavailable Corky Luo Attending Unavailable Toni Gutierrez. Attending Unavailable Toni Gutierrez. Admitting Unavailable Nicole Myers Attending Unavailable Corky Luo Attending Unavailable Dwight Shaffer Attending Unavailable Dwight Shaffer Admitting Unavailable Mendy, Mounika Primary Care Unavailable Maria Luisa Steiner. Attending Unavailable Mendy, Mounika M Referring Unavailable Toni Gutierrez Attending Unavailable Toni Gutierrez Admitting Unavailable Jigna Suarez Attending Unavailable Jigna Suarez Admitting Unavailable Jacqueline Vega RN Unavailable [phone] [facility] Unavailable MENDY, MOUNIKA M Attending Unavailable MONE MCGUIRE Attending Unavailable MENDY, MOUNIKA M Referring Unavailable MENDY, MOUNIKA M Attending Unavailable MENDY, MOUNIKA M Attending Unavailable MENDY, MOUNIKA M Attending Unavailable MENDY, MOUNIKA M Attending Unavailable JENNIFER SHORT Attending Unavailable JENNIFER SHORT Referring Unavailable MENDY, MOUNIKA M Attending Unavailable MENDY, MOUNIKA M Attending Unavailable KAYLA SWEENEY F Attending Unavailable PATEL AHMACaro F Referring Unavailable PERLITA MEEKS Attending Unavailable KAYLA SWEENEY Attending Unavailable PERLITA MEEKS Attending Unavailable KAYLA SWEENEY Attending Unavailable EDITA RIZVI Attending Unavailable EDITA RIZVI Admitting Unavailable Jordan MACARIO Attending Unavailable Jigna Suarez Admitting Unavailable Marli WOODS, Deann Unavailable Mendy LYMAN, Mounika Lugo Unavailable Dorita SANTIAGO, Janice Unavailable Allergies Allergy ClassificationReported Allergen(s)Allergy TypeDate of OnsetReaction(s) FacilityPenicillins (antibiotic) (4 sources)Penicillins; Translations: [penicillins]Drug AllergyCutaneous eruption (morphologic abnormality)[facility] (20 sources)Penicillins; Translations: [penicillins]Drug [id number] Cutaneous eruption (morphologic abnormality), [facility] (20 sources)penicillAMINEDrug [id number] Medications Current Medications MedicationDrug Class(es)DatesSig (Normalized)Sig (Original)##### (1 source)Start: 12-28-2021##### 100 EA, USE TO TEST THREE TIMES DAILY Start Date: 12/28/21 Status: Orderedacetaminophen 325 mg / HYDROcodone bitartrate 5 mg oral tablet (16 sources)Opioid AgonistStart: 37-55-2464gbhb 1 tablet by mouth every hour [place] 325 mg-5 mg oral tablet See Instructions, 1 tab(s), Refill(s) 0, Take 1 hour prior to your procedure, [facility] #[id number], 183, cm, 11/20/23 12:53:00 EDT, Height/Length Dosing, 143.5, kg, 11/11/23 9:09:00 EDT, Weight Dosing Start Date: 11/20/23 Status: Orderedacetaminophen 325 mg / oxyCODONE hydrochloride 5 mg oral tablet (20 sources)Opioid AgonistStart: 27-25-4896gvkBJWTRL-acetaminophen (Percocet) 5- 325 MG tablet 06/23/2024 ActiveStart: 06-23-2024 End: 99-78-4049kprr 1 tablet by mouth every six hours as needed for pain oxyCODONE-acetaminophen (Percocet) 5-325 MG tablet TAKE 1 TABLET BY MOUTH EVERY 6 HOURS FOR 3 DAYS NEEDED FOR PAIN 06/23/2024 Activeacetaminophen 325 mg / traMADol hydrochloride 37.5 mg oral tablet (16 sources)Opioid AgonistStart: 22-70-0998Gmznjldb 325 mg-37.5 mg Tab See Instructions, 20 tab(s), Refill(s) 0, take 1-2 every 6 hrs prn for pain - following procedure, [facility] #[id number], 183, cm, 11/20/23 12:53:00 EDT, Height/Length Dosing, 143.5, kg, 11/11/23 9:09:00 EDT, Weight Dosing Start Date: 11/20/23 Status: OrderedacetaZOLAMIDE 250 mg oral tablet (1 source)Carbonic Anhydrase InhibitorStart: 93-32-6984uzet 250 mg by mouth twice dailyAcetazolamide Active 250 MG PO Twice daily November 17, 2023 12:[id number] 200 actuat albuterol 0.09 mg/actuat metered dose inhaler (20 sources)beta2-Adrenergic AgonistStart: 85-72-5236rjkr 2 puff(s) by inhalation every four hoursalbuterol HFA 90 mcg/act inhaler Inhale 2 puffs every 4 (four) hours if needed 11/03/2022 ActiveStart: 69-47-9315vasu 2.5 mg by inhalation every four hoursalbuterol 0.083% Inh Harriet 3 mL 2.5 mg, 3 mL, Inhalation, q4hr Shortness of breath or wheezing, 30 EA, Refill(s) 5, [facility] #[id number], 182.9, cm, 03/29/22 13:07:00 EDT, Height/Length Dosing, 126.7, kg, 13:07:00 EDT, Weight Dosing Start Date: 04/04/22 Status: Ordered Quantity: 30.0 Unit: EA Repeat number: 6Start: 40-18-7992ibej 2.5 mg by inhalation every four hoursalbuterol 0.083% Inh Harriet 3 mL 2.5 mg, 3 mL, Inhalation, q4hr Shortness of breath or wheezing, 30 EA, Refill(s) 2, [facility], 183, cm, 01/11/21 11:12:00 EDT, Height/Length Dosing, 145.1, kg, 12/23/20 19:46:00 EDT, Weight Dosing Start Date: 03/08/21 Status: OrderedStart: 10-10-0558dzqr 2.5 mg by inhalation every four hoursalbuterol 0.083% Inh Harriet 3 mL 2.5 mg, 3 mL, Inhalation, q4hr Shortness of breath or wheezing, 30 EA, Refill(s) 2, [facility], 183, cm, 01/11/21 11:12:00 EDT, Height/Length Dosing, 145.1, kg, 12/23/20 19:46:00 EDT, Weight Dosing Start Date: 03/08/21 Status: Ordered Albuterol (Eqv-ProAir HFA) 90 mcg/inh inhalation aerosol (20 sources)Start: 50-43-4441jtfa 2 puff(s) by inhalation every six hours Albuterol (Eqv-ProAir HFA) 90 mcg/inh inhalation aerosol 2 puff(s), Inhalation, q6hr Wheezing, 18 gm, Refill(s) 11, [facility] #[id number], 182, cm, 05/08/23 10:15:00 EDT, Height/Length Dosing, 137, kg, 05/08/23 10:15:00 EDT, Weight Dosing Start Date: 05/08/23 Status: Ordered Quantity: 18.0 Unit: g Repeat number: 12Start: 40-33-6548wmew 2 puff(s) by inhalation every six hoursAlbuterol (Eqv-ProAir HFA) 90 mcg/inh inhalation aerosol 2 puff(s), Inhalation, q6hr Wheezing, 18 gm, Refill(s) 11, [facility] #[id number], 182, cm, 05/08/23 10:15:00 EDT, Height/Length Dosing, 137, kg, 05/08/23 10:15:00 EDT, Weight Dosing Start Date: 05/08/23 Status: OrderedStart: 05-08-2023 End: 21-76-2684xelo 2 puff(s) by inhalation every six hoursAlbuterol (Eqv-ProAir HFA) 90 mcg/inh inhalation aerosol 2 puff(s), Inhalation, q6hr Wheezing for 30 day(s), 18 gm, Refill(s) 11, [facility] #[id number], 182, cm, 05/08/23 10:15:00 EDT, Height/Length Dosing, 137, kg, 05/08/23 10:15:00 EDT, Weight Dosing Start Date: 05/08/23 Stop Date: 05/02/24 Status: Orderedalbuterol 0.833 mg/ml / ipratropium bromide 0.167 mg/ml inhalation solution (1 source)Anticholinergic, beta2-Adrenergic AgonistStart: 07-06-0106lqaw 1 mL by inhalation four times dailyIpratropium-Albuterol Active 3 ML INHALATION Four times daily - Respiratory 0 November 17, 2023 12:00amaspirin 81 mg oral tablet (8 sources)Platelet Aggregation Inhibitor, Nonsteroidal Anti-inflammatory Drug Start: 40-01-8399zbhs 1 tablet by mouth once dailyaspirin 81 mg oral tablet 81 mg = 1 tab(s), Oral, Daily, # 30 tab(s), Refills(s) 0 Start Date: 03/11/19 Status: OrderedComment on above:Take 81 mg by mouth once daily.atorvastatin 40 mg oral tablet (20 sources)HMG-CoA Reductase InhibitorStart: 03-10-2022 End: 76-15-8711rwka 1 tablet by mouth once daily in the morningatorvastatin 40 mg Tab 40 mg = 1 tab(s), Oral, qAM, # 30 tab(s), Refills(s) 0, [facility]: [id number], 180, cm, 09/12/23 13:35:00 EST, Height/Length Dosing, 149.8, kg, 09/12/23 13:35:00 EST, Weight Dosing Start Date: 09/16/23 Status: Ordered Quantity: 30.0 Unit: tab(s) Repeat number: 1Beet Root (20 sources)Start: 44-17-6443Wsea Root Beet Root, See Instructions, Take 1000mg daily Start Date: 09/19/22 Status: OrderedBlood Glucose Monitoring Suppl ([employer] Medical Verio Flex System) w/Device kit (9 sources)Start: 67-35-4858Xdyhs Glucose Monitoring Suppl ([employer] Medical Verio Flex System) w/Device kit USE DIRECTED TO TEST BLOOD SUGAR 12/24/2024 Kbynwg306 actuat budesonide 0.16 mg/actuat / formoterol fumarate 0.0045 mg/actuat metered dose inhaler (20 sources)Corticosteroid, beta2-Adrenergic AgonistStart: 07-27-7418hxwg 1 puff(s) by inhalation twice dailyBudesonide-Formoterol (Symbicort) 160-4.5 mcg/actuation HFA aerosol inhaler Active 2 PUFF INHALATION Twice daily June 19, 2023 12:00amStart: 05-09-2023 End: 06-10-2858njls 2 puff(s) by inhalation in the morningSymbicort 160-4.5 MCG/ACT inhaler Inhale 2 puffs in the morning and 2 puffs before bedtime. 05/09/2023 03/25/2025 Discontinued (Non-compliance)Start: 04-26-9397blgwcboabs- formoterol (SYMBICORT) 160-4.5 mcg/actuation inhaler Inhale 2 Puffs as instructed. 0 05/09/2023 ActiveComment on above:Inhale 2 Puffs as instructed. cefdinir 300 mg oral capsule (1 source)Cephalosporin AntibacterialStart: 12-02-2024 End: 24-65-9146rwyk 1 capsule by mouth every twelve hourscefdinir 300 mg Cap 300 mg = 1 cap(s), Oral, q12hr, X 10 day(s), # 20 cap(s), Refills(s) 0, Pharmacy: [facility] #[id number], 183, cm, 12/02/24 12:47:00 EDT, Height/Length Dosing, 117.1, kg, 12/02/24 12:47:00 EDT, Weight Dosing Start Date: 12/02/24 Stop Date: 12/12/24 Status: Ordered Quantity: 20.0 Unit: cap(s) Repeat number: 1 cinnamon preparation 500 mg oral tablet (20 sources)Non-Standardized Food Allergenic ExtractStart: 94-47-1694ogio 1 capsule by mouth once dailyCinnamon 500 mg oral capsule 500 mg = 1 cap(s), Oral, Daily, Refills(s) 0 Start Date: 09/19/22 Status: Orderedcyclobenzaprine hydrochloride 10 mg oral tablet (7 sources)Muscle RelaxantStart: 22-08-2668rfyg 1 tablet by mouth at bedtime cyclobenzaprine (Flexeril) 10 MG tablet Indications: Neck pain Take 1 tablet (10 mg) by mouth at bedtime 30 tablet 04/29/2025 ActivediazePAM 10 mg oral tablet (16 sources)BenzodiazepineStart: 43-58-7858Dzinsi 10 mg Tab See Instructions, Take 1 hr prior to procedure, # 1 tab(s), Refills(s) 0, Pharmacy: [facility] #[id number], 183, cm, 11/20/23 12:53:00 EDT, Height/Length Dosing, 143.5, kg, 11/11/23 9:09:00EDT, Weight Dosing Start Date: 11/20/23 Status: OrderedDISABILITY PARKING PLACARD (1 source)Start: 01-79-0681KOBXPJZICW PARKING PLACARD DISABILITY PARKING PLACARD, See Instructions, 1 EA, 0, > Five Years, Supply Start Date: 10/01/21 Status: Ordereddoxycycline hyclate 100 mg oral capsule (20 sources)Tetracycline-class DrugStart: 06-23-2024 End: 86-57-3169ipdh 1 capsule by mouth in the morningdoxycycline (Vibramycin) 100 MG capsule Take 100 mg by mouth in the morning and 100 mg before bedtime. 06/23/2024 ActiveStart: 69-34-1631bikwsqwuvcp hyclate 100 mg Tab See Instructions, Start taking 3 days prior to procedure - twice a day x7 days, # 14 tab(s), Refills(s) 0, Pharmacy: [facility] #[id number], 183, cm, 11/20/23 12:53:00 EDT, Height/Length Dosing, 143.5, kg, 11/11/23 9:09:00 EDT, Weight Dosing Start Date: 11/20/23 Status: Ordered Quantity: 14.0 Unit: tab(s) Repeat number: 1Start: 06-19-2023 End: 54-34-2062kztc 100 mg by mouth twice dailyDoxycycline Hyclate Discontinued 100 MG PO Twice daily June 19, 2023 12:00am June 21, 2023 1:50pm DULoxetine 60 mg delayed release oral capsule (20 sources)Serotonin and Norepinephrine Reuptake InhibitorStart: 04-29-2025 End: 22-16-7696ycdq 2 capsules by mouth once dailyDULoxetine (Cymbalta) [address] capsule Indications: Anxiousness Take 2 capsules (120 mg) by mouth Daily 180 capsule 3 04/29/2025 04/29/2026 ActiveStart: 01-11-2022 End: 37-40-6459irxn 1 capsule by mouth once dailyDULoxetine (Cymbalta) [address] capsule Indications: Anxiousness Take 1 capsule (60 mg) by mouth Daily 90 capsule 3 01/22/2025 04/29/2025 Discontinued (Reorder)DULoxetine 60 mg Cap-EC (3 sources)Start: 64-07-0456utio 1 capsule by mouth once dailyDULoxetine 60 mg Cap-EC 60 mg = 1 cap(s), Oral, Daily, # 30 cap(s), Refills(s) 11, [facility], 182, cm, 01/11/22 13:57:00 EDT, Height/Length Dosing, 130, kg, 01/11/22 13:57:00 EDT, Weight Dosing Start Date: 01/11/22 Status: OrderedStart: 40-15-1380dhsv 1 capsule by mouth once dailyDULoxetine 60 mg Cap- EC 60 mg = 1 cap(s), Oral, Daily, # 30 cap(s), Refills(s) 11, [facility]: [facility], 183, cm, 11/14/19 12:11:00 EDT, Height/Length Measured, 144.3, kg, 11/14/19 12:11:00 EDT, Weight Measured Start Date: 12/03/19 Status: Orderedempagliflozin 10 mg oral tablet (4 sources)Sodium-Glucose Cotransporter 2 InhibitorStart: 10-28-2023 End: 22-15-6507hxrh 1 tablet by mouth once dailyempagliflozin (JARDIANCE) 10 mg tablet Take 1 tablet by mouth once daily. 30 tablet 2 10/28/2023 01/26/2024 ActiveComment on above:Take 1 tablet by mouth once daily.Flax Seed Oil (20 sources)Start: 57-42-9920Qcwt Seed Oil See Instructions, Refill(s) 0, Take 1000mg daily Start Date: 09/19/22 Status: Orderedfluconazole 200 mg oral tablet (1 source)Azole AntifungalStart: 09-81-0712xsma 200 mg by mouth once daily Fluconazole Active 200 MG PO Daily 05 30November 17, 2023 12:00amFreestyle Sage 2 [place] (20 sources)Start: 86-81-0394Mmviyivlf Sage 2 [place] Freestyle Sage 2 [place], See Instructions, 1 EA, 0, Use daily with sensor, [facility] #[id number], Supply, 180, cm, 09/12/23 13:35:00 EST, Height/Length Dosing, 149.8, kg, 09/12/2412:35:00 EST, Weight Dosing Start Date: 09/16/23 Status: Ordered Quantity: 1.0 Unit: EA Repeat number: 1Start: 43-87-8796Vvaulelgo Sage 2 [place] Freestyle Sage 2 [place], See Instructions, 1 EA, 0, Use daily with sensor, [facility] #97315, Supply, 180, cm, 09/12/23 13:35:00 EST, Height/Length Dosing, 149.8, kg, 09/12/2412:35:00 EST, Weight Dosing Start Date: 09/16/23 Status: OrderedStart: 46-09-8208Lvyzneriv Sage 2 [place] Freestyle Sage 2 [place], See Instructions, 1 EA, 0, Use daily with sensor, [facility] #[id number], Supply, 182, cm, 05/22/23 13:30:00 EDT, Height/Length Dosing, 139.6, kg, 05/22/2313:30:00 EDT, Weight Dosing Start Date: 05/22/23 Status: OrderedFreestyle Sage 2 Sensors (20 sources)Start: 37-89-2114Afartbxme Sage 2 Sensors Freestyle Sage 2 Sensors, See Instructions, 2 EA, 3, Apply one q 14 days, [facility] #00144, Supply, 180, cm, 09/12/23 13:35:00 EST, Height/Length Dosing, 149.8, kg, 09/12/2412:35:00 EST, Weight Dosing Start Date: 09/16/23 Status: Ordered Quantity: 2.0 Unit: EA Repeat number: 4Start: 90-78-3141Phizbvllx Sage 2 Sensors Freestyle Sage 2 Sensors, See Instructions, 2 EA, 3, Apply one q 14 days, [facility] #[id number], Supply, 180, cm, 09/12/23 13:35:00 EST, Height/Length Dosing, 149.8, kg, 09/12/2412:35:00 EST, Weight Dosing Start Date: 09/16/23 Status: OrderedStart: 81-97-9267Xwntgmnyh Sage 2 Sensors Freestyle Sage 2 Sensors, See Instructions, 2 EA, 3, Apply one q 14 days, [facility] #20972, Supply, 182, cm, 05/22/23 13:30:00 EDT, Height/Length Dosing, 139.6, kg, 05/22/2313:30:00 EDT, Weight Dosing Start Date: 05/22/23 Status: Ordered furosemide 20 mg oral tablet (20 sources)Loop DiureticStart: 93-88-0371lfqw 1 tablet by mouth once dailyLasix 40 mg Tab 40 mg = 1 tab(s), Oral, Daily, # 30 tab(s), Refills(s) 0, [id number], 180, cm, 09/12/23 13:35:00 EST, Height/Length Dosing, 149.8, kg, 09/12/23 13:35:00 EST, Weight Dosing Start Date: 09/16/23 Status: Ordered Quantity: 30.0 Unit: tab(s) Repeat number: 1Start: 43-66-8883wcgmeoufxm (Lasix) 20 MG tablet Take 40 mg by mouth in the morning. and 20mg at night. 0 06/21/2023 ActiveStart: 06-21-2023 End: 55-40-8754rcev 1 tablet by mouth once daily in the eveningLasix 20 mg Tab 20 mg = 1 tab(s), Oral, qPM, # 30 tab(s), Refills(s) 0, [id number], 180, cm, 09/12/23 13:35:00 EST, Height/Length Dosing, 149.8, kg, 09/12/23 13:35:00 EST, Weight Dosing Start Date: 09/16/23 Status: Ordered Quantity: 30.0 Unit: tab(s) Repeat number: 1gabapentin 800 mg oral tablet (20 sources)Anti-epileptic AgentStart: 06-05-2025 End: 60-99-8569wzog 1 tablet by mouth in the morning, then take 1 tablet by mouth in the evening, then take 1 tablet by mouth at bedtimegabapentin (Neurontin) 800 MG tablet Indications: Type 2 diabetes mellitus with hyperglycemia, withlong-term current use of insulin (HCC) Take 1 tablet (800 mg) by mouth in the morning and 1 tablet (800 mg) in the evening and 1 tablet (800 mg) before bedtime. 90 tablet 2 06/05/2025 09/03/2025 ActiveStart: 11-17-2023 take 300 mg by mouth three times dailyGabapentin Active 300 MG PO Three times daily November 17, 2023 3:05pmStart: 01-11-2022 End: 77-43-1723xasj 1 tablet by mouth in the morning, then take 1 tablet by mouth in the evening, then take 1 tablet by mouth at bedtimegabapentin (Neurontin) 600 MG tablet Indications: Type 2 diabetes mellitus with hyperglycemia, withlong-term current use of insulin (HCC) Take 1 tablet (600 mg) by mouth in the morning and 1 tablet (600 mg) in the evening and 1 tablet (600 mg) before bedtime. 90 tablet 3 12/25/2024 06/05/2025 Discontinued (Reorder) Start: 27-83-5640wnpo 1 tablet by mouth twice dailygabapentin 600 mg Tab 600 mg = 1 tab(s), Oral, BID, 30 Day Supply, # 60 tab(s), Refills(s) 11, Pharmacy: [facility] #[id number], 182, cm, 10/01/21 10:14:00 EST, Height/Length Dosing, 131.2, kg, 10/01/21 10:14:00 EST, Weight Dosing Start Date: 10/01/21 Status: OrderedComment on above:Take 600 mg by mouth three times a day.12 hr guaiFENesin 600 mg extended release oral tablet (20 sources)Start: 45-46-6971stje 2 tablets by mouth twice daily, then take 1 tablet by mouth every twelve hoursGuaifenesin (Mucinex) 600 mg Tablet Extended Release 12hr Active 1200 MG PO Twice daily 0 November 17, 2023 12:00amStart: 30-00-4916kgsu 2 tablets by mouth twice dailyguaiFENesin 600 mg ER Tab 1,200 mg = 2 tab(s), Oral, BID, # 14 tab(s), Refills(s) 0, [id number], 182, cm, 06/11/23 13:54:00 EDT, Height/Length Dosing, 139.6, kg, 06/11/23 13:54:00 EDT,Weight Dosing Start Date: 06/15/23 Status: OrderedStart: 06-15-2023 End: 38-65-1476ipja 1 tablet by mouth in the morning, then take 1 tablet by mouth every twelve hours at bedtimeguaiFENesin (Mucinex) 600 MG 12 hr tablet Take 1,200 mg by mouth in the morning and 1,200 mg beforebedtime. 06/15/2023 03/25/2025 Discontinued (Therapy completed)Comment on above:Take 1,200 mg by mouth.3 ml insulin aspart, human 100 unt/ml pen injector (20 sources)Insulin AnalogStart: 06-05-2025 End: 60-49-6089sfqfjzl aspart, with niacinamide, (Fiasp FlexTouch) 100 UNIT/ML injection Indications: Type 2 diabetes mellitus with hyperglycemia, with long- term current use of insulin (HCC) Inject 40 Units under the skin in the morning and 40 Units at noon and 40 Units in the evening. Inject with meals. 108 mL 1 06/05/2025 12/02/2025 ActiveStart: 10-12-2023 End: 05-04-7027Arjzs FlexTouch 100 UNIT/ML injection inject -20 PLUS ISS #2 (EXPECT DAILY DOSE OF 80 UNITS) 10/12/2023 03/17/2025 Discontinued (Therapy completed)Start: 73-47-9079JQYJY FLEXTOUCH U-100 INSULIN 100 unit/mL (3 mL) pen inject 15-20 PLUS ISS #2 (EXPECT DAILY DOSEOF 80 UNITS) 0 10/12/2023 Active Start: 92-82-1568TwjlZHK FlexPen 100 units/mL injectable solution See Instructions, 250 tidac. Max 150 units a day, # 45 mL, Refills(s) 5, [id number], 182, cm, 09/13/22 13:17:00 EST, Height/Length Dosing, 140.8, kg, 09/13/22 13:17:00 EST, Weight Dosing Start Date: 09/13/22 Status: Ordered Quantity: 45.0 Unit: mL Repeat number: 6Start: 66-64-0991BnmiDZW FlexPen 100 units/mL injectable solution See Instructions, 250 tidac. Max 150 units a day, # 45 mL, Refills(s) 5, [facility][id number], 182.9, cm, 03/29/22 13:07:00 EDT, Height/Length Dosing, 126.7, kg, 03/29/22 13:07:00 EDT... Start Date: 03/29/22 Status: OrderedStart: 05-79-8815OmmwYTY FlexPen 100 units/mL injectable solution See Instructions, 250 tidac. Max 120 units a day, # 15 mL, Refills(s) 3, [facility], 182, cm, 10/01/21 10:14:00 EST, Height/Length Dosing, 131.2, kg, 10/01/21 10:... Start Date: 10/01/21 Status: OrderedNovoLOG FLEXPEN 100 UNIT/ML pen Inject 100 Units under the skin in the morning and 100 Units at noon and 100 Units in the evening. Inject with meals. 0 ActiveComment on above:inject 1518-20 PLUS ISS #2 (EXPECT DAILY DOSE OF 80 UNITS)insulin detemir 100 unt/ml injectable solution (1 source)Insulin AnalogStart: 85-35-3787lqcnje 18 mL by subcutaneous injection once daily in the eveningLevemir FlexTouch 100 units/mL subcutaneous solution 18 mL, inject 40 units subcutaneously every morning and 30 units every evening, Refills(s) 0 Start Date: 12/28/21 Status: Ordered3 ml insulin glargine 100 unt/ml pen injector (20 sources)Insulin AnalogStart: 06-05-2025 End: 70-97-4741qgeieca glargine (Lantus SoloStar) 100 UNIT/ML pen Indications: Type 2 diabetes mellitus with hyperglycemia, with long-term current use of insulin (HCC) Inject 80 Units under the skin at bedtime 3 mL12 06/05/2025 06/05/2026 ActiveStart: 03-07-2025 End: 83-90-4060xotcxv 30 [IU] by subcutaneous injection in the morningBasaglar KwikPen 100 UNIT/ML pen Inject 30 Units under the skin in the morning and 30 Units before bedtime. 03/07/2025 06/05/2025 Discontinued (Formulary change) Start: 24-39-7123Vftfocv Glargine U-300 Conc (Toujeo Max U-300 Solostar) 300 unit/mL (3 mL) Insulin Pen Active 35 UNIT SUBCUT Twice daily 3 June 21, 2023 12:26pmStart: 06-19-2023 End: 73-16-2023Ytoomgv Glargine U-300 Conc (Toujeo Max U-300 Solostar) 300 unit/mL (3 mL) Insulin Pen Gmgmujnkgbpp88 UNIT SUBCUT Twice daily June 19, 2023 12:00am June 21, 2023 1:50pmStart: 36-65-7545Wfcznh Max SoloStar 300 units/mL subcutaneous solution 40 unit(s), SubCutaneous, BID, # 12 mL, Refil ls(s) 5, Pharmacy: [facility] #[id number], 182, cm, 09/13/22 13:17:00 EST, Height/Length Dosing, 140.8, kg, 09/13/22 13:17:00 EST, Weight Dosing Start Date: 09/13/22 Status: Ordered Quantity: 12.0 Unit: mL Repeat number: 6Start: 82-99-8520Dypovy Max SoloStar 300 units/mL subcutaneous solution 40 unit(s), SubCutaneous, BID, # 12 mL, Refills(s) 5, Pharmacy: [facility] #[id number], 182.9, cm, 03/29/22 13:07:00 EDT, Height/Length Dosing, 126.7, kg, 03/29/22 13:07:00 EDT, Weight Dosing Start Date: 03/29/22 Status: OrderedStart: 43-52-6024ikfpwx 40 [IU] by subcutaneous injection in the morning, then inject 30 [IU] by subcutaneous injection in the eveningLantus Solostar Pen 100 units/mL subcutaneous solution See Instructions, 40 units AM, 30 units PM, # 30 mL, Refills(s) 11, Pharm[facility]: [facility], 182, cm, 01/11/22 13:57:00 EDT, Height/Length Dosing, 130, kg, 01/11/22 13:57:00 EDT, Weight Dosing Start Date: 01/11/22 Status: OrderedStart: 87-61-9201jxkdlv 40 [IU] by subcutaneous injection in the morning, then inject 30 [IU] by subcutaneous injection in the eveningLantus Solostar Pen 100 units/mL subcutaneous solution See Instructions, 40 units AM, 30 units PM, # 30 mL, Refills(s) 11, Pharmacy: [facility] LUIS ALBERTODERRICKKRYSTA KAYLEE, 182, cm, 01/11/22 13:57:00 EDT, Height/Length Dosing, 130, kg, 01/11/22 13:57:00 EDT, Weight Dosing Start Date: 01/11/22 Status: OrderedStart: 58-91-7654Uipxof Solostar Pen 100 units/mL subcutaneous solution 65 unit(s), SubCutaneous, Daily, Refills(s) 0 Start Date: 07/27/21 Status: Ordered End: 71-74-6188ngrosg 20 [IU] by subcutaneous injection in the morninginsulin glargine (Toujeo Max SoloStar) 300 UNIT/ML injection Inject 20 Units under the skin in the morning and 20 Units before bedtime. 07/15/2024 Discontinued (Formulary change)Insulin Glargine U-300 Conc (Toujeo Solostar U-300 Insulin) 300 unit/mL (1.5 mL) insulin pen (2 sources)Start: 18-21-2059Qfbbbvw Glargine U-300 Conc (Toujeo Solostar U-300 Insulin) 300 unit/mL (1.5 mL) insulin pen Rngjoc99 UNIT SUBCUT Daily at bedtime 4.5 November 17, 2023 3:01pmStart: 11-13-2023 End: 61-05-7141Xtisnbz Glargine U-300 Conc (Nabil Solostar U-300 Insulin) 300 unit/mL (1.5 mL) insulin pen Discontinued 50 UNIT SUBCUT Daily at bedtime November 13, 2023 12:00am November 17, 2023 3:02pmInsulin Lispro (Humalog U-100 Insulin) 100 unit/mL Solution (6 sources)Start: 73-84-7959rcfojg 1 dose by subcutaneous injection once before mealtimeInsulin Lispro (Humalog U-100 Insulin) 100 unit/mL Solution Active 1 sliding scale dose SUBCUT 3x/Day before meals & bedtime June 19, 2023 12:00am Sliding scaleStart: 89-94-1094Wqnqujx Lispro (Humalog U-100 Insulin) 100 unit/mL Solution Active 1 sliding scale dose SOLUTION June 18, 2023 11:00pm Sliding scaleStart: 95-87-8592Bmcxwqb Lispro (Humalog U-100 Insulin) 100 unit/mL Solution Active SOLUTION June 19, 2023 12:00am Sliding scale isopropyl alcohol 0.7 ml/ml medicated pad (9 sources)Start: 82-84-5499Rainpix Swabs (Alcohol Prep) 70 % pads USE TO TEST BLOOD SUGAR 3 TIMES PER DAY 12/21/2024 Activelinagliptin 2.5 mg / metFORMIN hydrochloride 1000 mg oral tablet (20 sources)Biguanide, Dipeptidyl Peptidase 4 InhibitorStart: 75-90-7145fqww 2.5-1000 mg by mouth once dailyLinagliptin-Metformin (Jentadueto) 2.5-1,000 mg tablet Active 1 TAB PO Daily October 1241:53pmStart: 04-14-2023 End: 52-66-4099Pxrdxttieq 2.5 mg-1000 mg oral tablet 1 tab(s), Oral, BID, 180 tab(s), Refill(s) 4, [facility] #[id number], 182.9, cm, 12/02/22 10:56:00 EDT, Height/Length Dosing, 139.6, kg, 12/02/22 10:56:00 EDT, Weight Dosing Start Date: 04/14/23 Status: Ordered Quantity: 180.0 Unit: tab(s) Repeat number: 5 Start: 60-95-3917Kcnmhohosy 2.5 mg-1000 mg oral tablet 1 tab(s), Oral, BID, 180 tab(s), Refill(s) 4, [facility] #[id number], 182.9, cm, 03/29/22 13:07:00 EDT, Height/Length Dosing, 126.7, kg, 03/29/22 13:07:00 EDT, Weight Dosing Start Date: 04/04/22 Status: OrderedStart: 12-58-3247zaoe 1 tablet by mouth twice daily Jentadueto 2.5 mg-1000 mg oral tablet 1 tab(s), Oral, BID, 180 tab(s), Refill(s) 4, [facility], 182, cm, 10/01/21 10:14:00 EST, Height/Length Dosing, 131.2, kg, 10/01/21 10:14:00 EST,Weight Dosing Start Date: 11/18/21 Status: Orderedtake 1 tablet by mouth in the morningJentadueto 2.5-1000 MG tablet Take 1 tablet by mouth in the morning and 1 tablet before bedtime. 0 A ctivelosartan potassium 50 mg oral tablet (20 sources)Angiotensin 2 Receptor BlockerStart: 77-13-7987bugv 1 tablet by mouth once dailylosartan 50 mg Tab 50 mg = 1 tab(s), Oral, Daily, # 30 tab(s), Refills(s) 1, Pharmacy: [facility] #[id number], 182, cm, 12/20/24 13:40:00 EDT, Height/Length Dosing, 118.4, kg, 12/20/24 13:40:00 EDT, Weight Dosing Start Date: 12/21/24 Status: Ordered Quantity: 30.0 Unit: tab(s) Repeat number: 2 In dication: Essential (primary) hypertensionStart: 05-22-2023 End: 63-40-8582gbaq 1 tablet by mouth once dailylosartan (Cozaar) 100 MG tablet Indications: Type 2 diabetes mellitus with hyperglycemia, with long-term current use of insulin (HCC) Take 1 tablet (100 mg) by mouth Daily 100 tablet 1 12/03/2024 ActiveStart: 90-48-5294bunz 1 tablet by mouth once dailylosartan 100 mg Tab 100 mg = 1 tab(s), Oral, Daily, # 90 tab(s), Refills(s) 3, [id number], 182.9, cm, 03/29/22 13:07:00 EDT, Height/Length Dosing, 126.7, kg, 03/29/22 13:07:00 EDT, Weight Dosing Start Date: 03/29/22 Status: OrderedStart: 57-18-1965joyy 1 tablet by mouth once dailylosartan 100 mg Tab 100 mg = 1 tab(s), Oral, Daily, # 90 tab(s), Refills(s) 3, [facility]: [facility], 183, cm, 04/20/21 11:36:00 EDT, Height/Length Dosing, 136, kg, 04/20/21 11:41:00 EDT, Weight Dosing Start Date: 04/20/21 Status: Orderedmethocarbamol 750 mg oral tablet (1 source)Muscle RelaxantStart: 12-19-2024 End: 22-68-9035vilm 1 tablet by mouth three times dailyRobaxin-750 oral tablet 750 mg = 1 tab(s), Oral, TID, X 3 day(s), # 9 tab(s), Refills(s) 0, Pharmacy: [facility] #[id number], 183, cm, 12/19/24 10:26:00 EDT, Height/Length Dosing, 110.8, kg, 12/19/24 10:26:00 EDT, Weight Dosing Start Date: 12/19/24 Stop Date: 12/22/24 Status: Ordered Quantity: 9.0Unit: tab(s) Repeat number: 1Misc Prescription (11 sources)Start: 90-14-9820Gggo Prescription 0 Start Date: 09/19/22 Status: OrderedMisc. Devices (Cane) misc (20 sources)Start: 43-07-7552Catu. Devices (Cane) misc Indications: Difficulty walking 1 each continuously 1 each 07/03/2024 ActiveNovoLOG FlexPen 100 units/mL injectable solution (2 sources)Start: 19-86-3951YirnPEG FlexPen 100 units/mL injectable solution See Instructions, 250 tidac. Max 120 units a day, # 15 mL, Refills(s) 3, [facility], 182, cm, 10/01/21 10:14:00 EST, Height/Length Dosing, 131.2, kg, 10/01/21 10:... Start Date: 10/01/21 Status: Orderedoxybutynin chloride 5 mg oral tablet (16 sources)Cholinergic Muscarinic AntagonistStart: 32-26-7860bfik 1 tablet by mouth twice dailyoxybutynin 5 mg Tab See Instructions, 1 tab(s) Oral bid after procedure, # 20 tab(s), Refills(s) 0,Pharmacy: [facility] #[id number], 180, cm, 01/15/24 16:27:00 EDT, Height/Length Dosing, 140, kg, 01/15/24 16:27:00 EDT, Weight Dosing Start Date: 02/07/24 Status: OrderedStart: 63-64-0624obwy 1 tablet by mouth twice dailyoxybutynin 5 mg Tab See Instructions, 1 tab(s) Oral bid after procedure, # 10 tab(s), Refills(s) 0,Pharmacy: [facility] #[id number], 183, cm, 11/20/23 12:53:00 EDT, Height/Length Dosing, 143.5, kg, 11/11/23 9:09:00 EDT, Weight Dosing Start Date: 11/20/23 Status: Orderedpantoprazole 40 mg delayed release oral tablet (20 sources)Proton Pump InhibitorStart: 04-20-2021 End: 99-79-0737nuir 1 tablet by mouth once dailyProtonix 40 mg Tab-DR 40 mg = 1 tab(s), Oral, Daily, # 30 tab(s), Refills(s) 6, Pharmacy: [facility] #[id number], 182, cm, 05/08/23 10:15:00 EDT, Height/Length Dosing, 137, kg, 05/08/23 10:15:00 EDT, WeightDosing Start Date: 05/08/23 Status: Ordered Quantity: 30.0 Unit: tab(s) Repeat number: 7 Indication:Gastro-esophageal reflux disease without esophagitis Start: 75-33-2823kgcz 1 tablet by mouth once dailyPantoprazole [address] Tab 40 mg = 1 tab(s), Oral, Daily, # 90 tab(s), Refills(s) 3, [facility]: [facility], 183, cm, 04/20/21 11:36:00 EDT, Height/Length Dosing, 136, kg, 04/20/21 11:41:00 EDT, Weight Dosing Start Date: 04/20/21 Status: OrderedComment on above:Take 40 mg by mouth once daily.Sennosides (Senna Laxative) 8.6 mg Tablet (1 source)Start: 20-93-6448maxl 1 tablet by mouth twice dailySennosides (Senna Laxative) 8.6 mg Tablet Active 8.6 MG PO Twice daily 0 November 17, 2023 12:00am tamsulosin hydrochloride 0.4 mg oral capsule (20 sources)alpha-Adrenergic BlockerStart: 10-02-2023 End: 71-89-2477dngk 1 capsule by mouth once dailytamsulosin 0.4 mg Cap 0.4 mg = 1 cap(s), Oral, Daily, X 30 day(s), # 30 cap(s), Refills(s) 3, [facility]: [id number], 181.8, cm, 09/26/23 9:01:00 EST, Height/Length Dosing, 136, kg, 09/26/23 9:01:00 EST, Weight Dosing Start Date: 10/02/23 Stop Date: 01/30/24 Status: OrderedComment on above:Take 1 capsule by mouth every afternoon.Toujeo SoloStar (20 sources)Start: 40-19-0458pzlwkm 50 [IU] by subcutaneous injection at bedtime Toujeo SoloStar 50 unit(s), SubCutaneous, Bedtime, Refills(s) 0 Start Date: 09/12/23 Status: OrderedRepeat number: 1Start: 78-11-0088wyowip 50 [IU] by subcutaneous injection at bedtimeToujeo SoloStar 50 unit(s), SubCutaneous, Bedtime, Refills(s) 0 Start Date: 09/12/23 Status: OrderedVentolin HFA 90 mcg/inh Aerosol (20 sources)Start: 03-66-5550atgq 2 puff(s) by inhalation every four hours Ventolin HFA 90 mcg/inh Aerosol 2 puff(s), Inhalation, q4hr Shortness of breath or wheezing, 8.5 gm, Refill(s) 5, [facility] #[id number], 182.9, cm, 06/17/22 13:13:00 EDT, Height/Length Dosing, 131.5, kg, 06/17/22 13:13:00 EDT, Weight Dosing Start Date: 06/17/22 Status: Ordered Quantity: 8.5 Unit: g Repeat number: 6Start: 99-98-8169dyhs 2 puff(s) by inhalation every four hoursVentolin HFA 90 mcg/inh Aerosol 2 puff(s), Inhalation, q4hr Shortness of breath or wheezing, 8.5 gm, Refill(s) 5, [facility] #50729, 182.9, cm, 06/17/22 13:13:00 EDT, Height/Length Dosing, 131.5, kg, 06/17/22 13:13:00 EDT, Weight Dosing Start Date: 06/17/22 Status: OrderedVitamin D3 2000 intl units (20 sources)Start: 78-52-4441Eunxocb D3 2000 intl units 50 mcg, Chewed, Daily, Refills(s) 0 Start Date: 09/19/22 Status: OrderedZinc (20 sources)Start: 02-11-1262Dnyh 140 mg (as elemental zinc 50 mg) oral tablet 140 mg = 1 tab(s), Oral, Daily, Refills(s) 0 Start Date: 09/19/22 Status: Ordered Completed/Discontinued Medications MedicationDrug Class(es)DatesSig (Normalized)Sig (Original)amLODIPine 10 mg oral tablet (20 sources)Dihydropyridine Calcium Channel BlockerStart: 05-22-2023 End: 17-89-9583zbzc 10 mg by mouth twice dailyAmlodipine Discontinued 10 MG PO Twice daily June 19, 2023 12:00am June 21, 2023 1:50pmStart: 04-20-2021 End: 90-28-9750dhzz 10 mg by mouth once dailyAmlodipine Discontinued 10 MG PO Daily October 06, 2023 1:00am October 12, 2023 1:55pmcephalexin 500 mg oral capsule (5 sources)Cephalosporin AntibacterialStart: 10-06-2023 End: 02-01-8531otnd 500 mg by mouth four times dailyCephalexin Discontinued 500 MG PO Four times daily October 06, 2023 1:00am October 12, 2023 1:55pm Start: 09-24-2023 End: 23-91-1050tfop 1 capsule by mouth every six hoursKeflex 500 mg Cap 500 mg = 1 cap(s), Oral, q6hr, X 5 day(s), # 20 cap(s), Refills(s) 0, Pharmacy: [facility] #[id number], 180, cm, 09/24/23 20:13:00 EST, Height/Length Dosing, 141.4, kg, 09/24/23 20:13:00 EST, Weight Dosing Start Date: 09/24/23 Stop Date: 09/29/23 Status: OrderedContinuous Blood Gluc Shingle Cutter (FreeStyle Sage 3 [place]) device (20 sources)Start: 09-25-2023 End: 41-71-7931Kugldbytbj Blood Gluc Shingle Cutter (FreeStyle Sage 3 [place]) device Indications: Type 2 diabetes mellitus with hyperglycemia, with long-term current use of insulin (HCC) , Long-term insulin use (HCC) 1 each continuously 1 each 09/25/2023 06/06/2025 Discontinued (Other)Start: 32-09-0016Qccikiwhvx Blood Gluc Shingle Cutter (FreeStyle Sage 3 [place]) device Indications: Type 2 diabetes [facility] with hyperglycemia, with long-term current use of insulin (HCC) , Long-term insulin use (HCC) 1 each continuously 1 each 09/25/2023 ActiveStart: 09-25-2023 Continuous Blood Gluc Shingle Cutter (FreeStyle Sage 3 [place]) device Indications: Type 2 diabetes mellitus with hyperglycemia, with long-term current use of insulin (CMS/HCC) , Long-term insulin use (CMS/HCC) 1 each continuously 1 each 09/25/2023 ActiveContinuous Blood Gluc Sensor (FreeStyle Sage 3 Sensor) misc (20 sources)Start: 09-25-2023 End: 36-88-8491Dbeocxbjbv Blood Gluc Sensor (FreeStyle Sage 3 Sensor) [facility] Indications: Type 2 diabetes mellitus with hyperglycemia, with long-term current use of insulin (HCC) , Long-term insulin use (HCC) 1 eachevery 14 (fourteen) days 6 each 3 09/25/2023 06/06/2025 Discontinued (Other)Start: 09-25-2023 Continuous Blood Gluc Sensor (FreeStyle Sage 3 Sensor) misc Indications: Type 2 diabetes mellitus with hyperglycemia, with long-term current use of insulin (HCC) , Long-term insulin use (HCC) 1 eachevery 14 (fourteen) days 6 each 3 09/25/2023 ActiveStart: 20-56-6646Fsnfvwozvi Blood Gluc Sensor (FreeStyle Sage 3 Sensor) [facility] Indications: Type 2 diabetes mellitus with hyperglycemia, with long-term current use of insulin (CMS/HCC) , Long-term insulin use (CMS/HCC) 1 each every 14 (fourteen) days 6 each 09/25/2023 ActiveGlucometer (20 sources)Start: 56-42-8323Avajoulotg Glucometer, See Instructions, 1 EA, 0, Dispense 1 Glucometer, [facility] #[id number], Supply, 180, cm, 09/12/23 13:35:00 EST, Height/Length Dosing, 149.8, kg, 09/12/23 13:35:00 EST, Weight DosingStart Date: 09/16/23 Status: Ordered Quantity: 1.0 Unit: EA Repeat number: 1 Indication: Type 2 diabetes mellitus with diabetic neuropathy, unspecifiedStart: 09-16-2023 Glucometer Glucometer, See Instructions, 1 EA, 0, Dispense 1 Glucometer, [facility] #57718, Supply, 180, cm, 09/12/23 13:35:00 EST, Height/Length Dosing, 149.8, kg, 09/12/23 13:35:00 EST, Weight DosingStart Date: 09/16/23 Status: Ordered Start: 25-76-6325Kkvtclewfh Glucometer, See Instructions, 1 EA, 0, Dispense 1 Glucometer, [facility] #[id number], Supply, 182, cm, 09/13/22 13:17:00 EST, Height/Length Dosing, 140.8, kg, 09/13/22 13:17:00 EST, Weight DosingStart Date: 11/03/22 Status: OrderedStart: 41-72-2228Sosinnlpph Glucometer, See Instructions, 1 EA, 0, Dispense 1 Glucometer, [facility] #[id number], Supply, 182, cm, 10/01/21 10:14:00 EST, Height/Length Dosing, 131.2, kg, 10/01/21 10:14:00 EST, Weight Dosing Start Date: 10/28/21 Status: OrderedGlucose (1 source)Start: 73-95-2105Bmirrtk Kit Glucose Kit, See Instructions, 1 EA, 0, Glucose meter. Include autolet, matching test strips, lancets, & alcohol wipes, #100 or as allowed by insurance; DX: E11.9, [facility] #39935, Supply, 182, cm, 12/20/24 13:40:00 EDT, Height/Length Dosing, 118.4, kg, 12/20/24 13:40:00EDT, Weight Dosing Start Date: 12/21/24 Status: Ordered Quantity: 1.0 Unit: EA Repeat number: 1 Indication: Hyperglycemia, unspecifiedhydrALAZINE hydrochloride 10 mg oral tablet (20 sources)Arteriolar VasodilatorStart: 10-28-2023 End: 31-22-7935tics 1 tablet by mouth every twelve hourshydrALAZINE (Apresoline) 10 MG tablet Take 10 mg by mouth every 12 (twelve) hours 10/28/2023 01/22/2025 Discontinued (Reorder)Start: 10-28-2023 End: 13-96-4080elar 1 tablet by mouth every twelve hourshydrALAZINE (APRESOLINE) 10 mg tablet Take 1 tablet by mouth every 12 hours. 60 tablet 2 10/28/2023 01/26/2024 ActiveStart: 10-12-2023 End: 09-20-9289amnf 75 mg by mouth twice dailyHydralazine Discontinued 75 MG PO Twice daily 180 60 October 12, 2023 1:00am November 13, 2023 4:40pmComment on above:Take 1 tablet by mouth every 12 hours.hydroCHLOROthiazide 25 mg / lisinopril 20 mg oral tablet (20 sources)Thiazide Diuretic, Angiotensin Converting Enzyme InhibitorStart: 06-21-2023 End: 88-18-8490kwwi 1 tablet by mouth in the morninglisinopril- hydroCHLOROthiazide 20-25 MG tablet Take 1 tablet by mouth in the morning. 06/21/2023 03/17/2025 Discontinued (Discontinued by another clinician)Start: 06-21-2023 End: 35-10-1214xhdt 1 tablet by mouth once dailyLisinopril-Hydrochlorothiazide Discontinued 1 TAB PO Daily June 21, 2023 12:00am October 06, 2023 10:46pmInsulin Glargine U-300 Conc (Toujeo Max U-300 Solostar) 300 unit/mL (3 mL) Insulin Pen (5 sources)Start: 11-13-2023 End: 13-82-8707xfizim 40 [IU] by subcutaneous injection twice daily, then inject 50 [IU] by subcutaneous injectiononce at bedtimeInsulin Glargine U-300 Conc (Toujeo Max U-300 Solostar) 300 unit/mL (3 mL) Insulin Pen Oiyxdtyvjmlk70 UNIT SUBCUT Twice daily November 13, 2023 12:00am November 17, 2023 3:02pm 40 units BID and 50 units q HSStart: 06-21-2023 End: 67-78-4413Gywmlhh Glargine U-300 Conc (Toujeo Max U-300 Solostar) 300 unit/mL (3 mL) Insulin Pen Gebbsbnqbpqa84 UNIT SUBCUT Twice daily June 21, 2023 12:26pm November 13, 2023 4:53pmStart: 13-18-6855Dgdzvdr Glargine U-300 Conc (Toujeo Max U-300 Solostar) 300 unit/mL (3 mL) Insulin Pen Active 35 UNIT SUBCUT Twice daily June 21, 2023 11:26amINSULIN GLARGINE,HUM.REC.ANLOG (LANTUS SOLOSTAR SUBCUTANEOUS) (3 sources)inject 40 [IU] by subcutaneous injection once daily at bedtimeINSULIN GLARGINE,HUM.REC.ANLOG (LANTUS SOLOSTAR SUBCUTANEOUS) Inject 40 Units subcutaneously daily at bedtime. 0 ActiveComment on above:Inject 40 Units subcutaneously daily at bedtime.Insulin Lispro (2 sources)Insulin AnalogStart: 06-15-2023 End: 59-55-2506Urrqieh Lispro Sliding Scale 0-10 Unit(s), Injection-Insulin, SubCutaneous, Start date 06/15/23 7:30:00 AM EDT Start Date: 06/15/23 Stop Date: 06/15/23 Status: CompletedStart: 06-12-2023 End: 20-18-2351Svjuyrf Lispro Sliding Scale 0-10 Unit(s), Injection-Insulin, SubCutaneous, Start date 06/12/23 4:30:00 PM EDT Start Date: 06/12/23 Stop Date: 06/12/23 Status: Completed3 ml insulin, regular, human 500 unt/ml pen injector (20 sources)InsulinStart: 20-96-9009NpixEIO R KwikPen (Concentrated) human recombinant 500 units/mL subcutaneous solution See Instructions, inject 40 units under the skin in the morning, 40 in the evening and 20 at bedtime., # 6 mL, Refills(s) 1, Pharmacy: [facility] #[id number], 182, cm, 12/20/24 13:40:00 EDT, Height/Length Dosing, 118.4, kg, 12/20/24 13:40:00 EDT, Weight Dosing Start Date: 12/21/24 Status: Ordered Quantity: 6.0 Unit: mL Repeat number: 2 Indication: Type 2 diabetes mellitus with diabetic neuropathy, unspecifiedStart: 07-15-2024 End: 29-76-7503eyktas 50 [IU] by subcutaneous injection in the morning, then inject 50 [IU] by subcutaneous injection in the evening, then inject 50 [IU] by subcutaneous injection at bedtimeinsulin regular (HumuLIN R U-500 KWIKPEN) 500 UNIT/ML CONCENTRATED injection Indications: Type 2 diabetes mellitus with hyperglycemia, with long-term current use of insulin (HCC) Inject 50 Units under the skin in the morning and 50 Units in the evening and 50 Units before bedtime. 27 mL 1 12/25/2024 06/05/2025 Discontinued (Formulary change)inject 15 [IU] by subcutaneous injection three times daily before mealtimeinsulin regular human (HUMULIN R) 100 unit/mL injection Inject 15 Units subcutaneously three times daily before meals. 0 ActiveComment on above:Inject 15 Units subcutaneously three times daily before meals.linagliptin 5 mg oral tablet (20 sources)Dipeptidyl Peptidase 4 InhibitorStart: 09-04-2024 End: 95-29-7821aqxu 1 tablet by mouth once dailylinaGLIPtin (Tradjenta) 5 MG tablet Indications: Type 2 diabetes mellitus with hyperglycemia, with long-term current use of insulin (HCC) Take 1 tablet (5 mg) by mouth Daily 90 tablet 1 12/25/2024 06/05/2025 Discontinued (Reorder)magnesium oxide 200 mg oral tablet (20 sources)Start: 06-21-2023 End: 93-76-7315bwci 200 mg by mouth once dailyMagnesium Oxide Discontinued 200 MG PO Daily June 21, 2023 12:00am October 06, 2023 10:46pmStart: 17-05-8736umivrlfuo oxide 165 mg, Chewed, Daily, Refills(s) 0 Start Date: 09/19/22 Status: OrderedmethylPREDNISolone (20 sources)CorticosteroidStart: 06-21-2024 End: 81-34-8129wtmaufQMFXKSYzcitg (Medrol Dospak) 4 MG tablets Indications: Non- recurrent acute serous otitis media of right ear Follow schedule on package instructions 21 tablet 06/21/2024 03/17/2025 Discontinued (Therapy completed) Start: 14-09-4328uieqeeAPNIYXUeavlr (Medrol Dospak) 4 MG tablets Indications: Non-recurrent acute serous otitis media of right ear Follow schedule on package instructions 21 tablet 06/21/2024 Activepotassium chloride 10 meq extended release oral capsule (20 sources)Start: 06-21-2023 End: 90-18-6990ujebfzcre chloride ER (Micro-K) 10 MEQ ER capsule Take 10 mEq by mouth Daily 06/21/2023 03/17/2025 Discontinued (Discontinued by another clinician)predniSONE 10 mg oral tablet (18 sources)Start: 06-15-2023 End: 09-85-2408yrim 10 mg by mouth once dailyPrednisone Discontinued 10 MG PO Daily June 19, 2023 12:00am June 19, 2023 7:52pm0.05 ml ranibizumab 6 mg/ml prefilled syringe (3 sources)Vascular Endothelial Growth Factor InhibitorStart: 07-22-2024 End: .3 mg, Intravitreal, Once PRN Procedure, Starting on Mon07/22/24 at 1504, For 1 doseStart: 05-22-2024 End: .3 mg, Intravitreal, Once PRN Procedure, Starting on Mon05/22/24 at 1442, For 1 doseStart: 04-23-2024 End: .3 mg, Intravitreal, Once PRN Procedure, Starting on Mon04/23/24 at 1106, For 1 doserOPINIRole 2 mg oral tablet (20 sources)Nonergot Dopamine AgonistStart: 04-29-2024 End: 09-86-9540kxei 1 tablet by mouth at bedtimerOPINIRole (Requip) 2 MG tablet Indications: RLS (restless legs syndrome) Take 1 tablet (2 mg) by mouth at bedtime 90 tablet 3 04/29/2024 03/25/2025 Discontinued (Non-compliance)Start: 05-22-2023 End: 54-62-2073ituq 1 tablet by mouth once daily in the eveningropinirole 1 mg Tab 1 mg = 1 tab(s), Oral, qPM, # 90 tab(s), Refills(s) 4, Pharmacy: [facility][id number], 182, cm, 05/22/23 13:30:00 EDT, Height/Length Dosing, 139.6, kg, 05/22/23 13:30:00 EDT, Weight Dosing Start Date: 05/22/23 Status: Ordered Quantity: 90.0 Unit: tab(s) Repeat number: 5Start: 74-99-2325bduo 1 tablet by mouth once daily in the eveningropinirole 1 mg Tab 1 mg = 1 tab(s), Oral, qPM, # 90 tab(s), Refills(s) 4, [facility][id number], 182.9, cm, 03/29/22 13:07:00 EDT, Height/Length Dosing, 126.7, kg, 03/29/22 13:07:00 EDT, Weight D osing Start Date: 03/29/22 Status: OrderedStart: 36-08-2637kvrc 1 tablet by mouth once daily in the eveningropinirole 1 mg Tab 1 mg = 1 tab(s), Oral, qPM, # 90 tab(s), Refills(s) 3, [facility]: [facility], 183, cm, 04/20/21 11:36:00 EDT, Height/Length Dosing, 136, kg, 04/20/21 11:41:00 EDT, Weight Dosing Start Date: 04/20/21 Status: OrderedComment on above:Take 1 mg by mouth daily at bedtime.Symbicort 160/4.5 inhalation aerosol with adapter (20 sources)Start: 85-49-0534qlgs 1 dose by inhalation twice dailySymbicort 160/4.5 inhalation aerosol with adapter 2 puff(s), Inhalation, BID, 1 EA, Refill(s) 6, [facility] #[id number], 182, cm, 05/08/23 10:15:00 EDT, Height/Length Dosing, 137, kg, 05/08/23 10:15:00 EDT,Weight Dosing Start Date: 05/08/23 Status: Ordered Quantity: 1.0 Unit: EA Repeat number: 7 Indication: Unspecified asthma, uncomplicatedStart: 37-07-0707mwum 1 dose by inhalation twice dailySymbicort 160/4.5 inhalation aerosol with adapter 2 puff(s), Inhalation, BID, 1 EA, Refill(s) 6, [facility] #[id number], 182, cm, 05/08/23 10:15:00 EDT, Height/Length Dosing, 137, kg, 05/08/23 10:15:00 EDT,Weight Dosing Start Date: 05/08/23 Status: OrderedStart: 05-08-2023 End: 32-06-9253yvdh 1 dose by inhalation twice dailySymbicort 160/4.5 inhalation aerosol with adapter 2 puff(s), Inhalation, BID for 30 day(s), 1 EA, Refill(s) 6, [facility] #[id number], 182, cm, 05/08/23 10:15:00 EDT, Height/Length Dosing, 137, kg, 05/08/2310:15:00 EDT, Weight Dosing Start Date: 05/08/23 Stop Date: 12/04/23 Status: OrderedtiZANidine 2 mg oral tablet (20 sources)Central alpha-2 Adrenergic AgonistStart: 10-06-2023 End: 10-02-3182ejjj 2 mg by mouth every eight hoursTizanidine Discontinued 2 MG PO Every 8 hours October 06, 2023 1:00am October 12, 2023 1:55pmStart: 16-32-2738vbvn 1 capsule by mouth every eight hours as needed for painZanaflex 2 mg oral capsule 2 mg = 1 cap(s), Oral, q8hr, PRN Muscle pain, # 180 cap(s), Refills(s) 0Start Date: 09/12/23 Status: Ordered Quantity: 180.0 Unit: cap(s) Repeat number: 1Start: [id number] 1 tablet by mouth every eight hours for muscle spasmstiZANidine (Zanaflex) 2 MG tablet Indications: Right groin pain Take 1 tablet (2 mg) by mouth every8 (eight) hours if needed for muscle spasms 90 tablet 0 07/27/2023 Activetorsemide 20 mg oral tablet (20 sources)Loop DiureticStart: 10-12-2023 End: [id number] 3 tablets by mouth in the morning, then take 3 tablets by mouth in the evening, then take 3 tablets by mouth at bedtimetorsemide (Demadex) 20 MG tablet Take 60 mg by mouth in the morning and 60 mg in the evening and 60 mg before bedtime. 10/12/2023 03/17/2025 Discontinued (Discontinued by another clinician)Start: 84-05-7795piqi 40 mg by mouth once dailyTorsemide Active 40 MG PO DAILY@0800 0 November 17, 2023 12:00amComment on above:Take 3 tablets by mouth two times a day. Problems Active Problems Problem ClassificationProblemDateDocumented DateEpisodic/ChronicAcute and unspecified renal failure (20 sources)Acute renal failure syndrome; Translations: [Acute kidney failure, unspecified]Onset: 946553-41-1496EqiafybaVjqhmtfqoi disorders (2 sources)Grief finding; Translations: [Adjustment disorder with depressed mood]09-09-7215CxlbtthHeelpxt disorders (3 sources)Anxiety; Translations: [Anxiety disorder, unspecified]01-22-2025 ChronicAsthma (20 sources)Asthma; Translations: [Unspecified asthma, uncomplicated]Onset: 099995-12-2702KxhbevwAgrkerr kidney disease (20 sources)Chronic kidney disease stage 3; Translations: [Chronic kidney disease stage 3B ]Onset: 09-13-2022 Resolved: 170932-28-1038KwusxeoHstwglp obstructive pulmonary disease and bronchiectasis (20 sources)Chronic obstructive lung disease; Translations: [Chronic obstructive pulmonary disease, unspecified]Onset: 11-11-2023 Resolved: 591912-03-5298JlwdqlbRajsnhr obstructive pulmonary disease and bronchiectasis (1 source)Bronchitis; Translations: [Bronchitis, not specified as acute or chronic]Onset: 92-55-3882PlmigkekEkdvrectidfv of device; implant or graft (3 sources)Complication associated with genitourinary device; Translations: [Unspecified complication of genitourinary prosthetic device, implant and graft, initial encounter]Onset: 02-88-7081WmmgwrboAmjwippvbf heart failure; nonhypertensive (20 sources)Right ventricular failure; Translations: [Right heart failure, unspecified]Onset: 365995-99-6311DnbfdqwKwojxhgi mellitus with complications (20 sources)Hyperglycemia due to type 2 diabetes mellitus; Translations: [Macular edema and retinopathy due to type 2 diabetes mellitus]Onset: 01-11-2022 Resolved: 506182-58-2524IlqcqbwWrigfko on above:noted in 03/11/2021 Diabetic Eye Exam page 5. added per outpatient CDI policy.Disorders of lipid metabolism (20 sources)Hyperlipidemia; Translations: [Hyperlipidemia, unspecified]Onset: 962179-46-2115YuahubdIgztouoaud disorders (20 sources)Gastroesophageal reflux disease; Translations: [Gastroesophageal reflux disease without esophagitis]Onset: 585447-54-8125XkwkzapJkifxqaoi hypertension (20 sources)Hypertensive disorder; Translations: [Essential hypertension]Onset: 187731-85-0340YvbvoirFljir and electrolyte disorders (20 sources)Dehydration; Translations: [Dehydration]Onset: 18-65-1323Hfpmenkx Headache; including migraine (3 sources)Ymevirgo51-22-2154KcpdqmqdQplvw valve disorders (20 sources)Pulmonary valve mxuvinnv76-34-1590BabmdfkVelvminekmq of prostate (20 sources)Benign prostatic hypertrophy with outflow obstruction; Translations: [Benign prostatic hyperplasia with lower urinary tract symptoms]Onset: 87-82-5581YljckweKuoriudblowd with complications and secondary hypertension (8 sources)Hypertensive urgency ; Translations: [Hypertensive urgency]06-20-2023 ChronicImmunizations and screening for infectious disease (5 sources)Vaccination given; Translations: [Encounter for immunization]Onset: 29-16-8534HpgrkfgfJndk disorders (20 sources)Severe major izyxwzsmna90-83-1906JmodudgOjkllzxxlqb deficiencies (20 sources)Vitamin D deficiency; Translations: [Vitamin D deficiency, unspecified]Onset: 493114-84-2174AmyoyxjLciplzlqyijlwo (20 sources)Osteoarthritis of knee; Translations: [Osteoarthritis of knee, unspecified]Onset: 315199-32-4790WzfapkoSjcxm aftercare (2 sources)Post-discharge follow-up; Translations: [Encounter for follow-up examination after completed treatment for conditions other than malignant neoplasm]63-28-6191BmzxqotkFjjqu bone disease and musculoskeletal deformities (20 sources)History of amputation of left foot; Translations: [Acquired absence of left foot]Onset: 192712-11-7632QvxcbpeDvxtw bone disease and musculoskeletal deformities (2 sources)Amputated toe of right foot; Translations: [Acquired absence of other right toe(s)]Onset: 25-22-3926MsrcgzskPvndn circulatory disease (2 sources)Pulmonary congestion ; Translations: [Other specified symptoms and signs involving the circulatory and respiratory systems]65-85-6976LmkkrsjuPrtyk connective tissue disease (1 source)Enthesopathy; Translations: [Enthesopathy, unspecified]Onset: 62-19-3384GqsslywkNtgng connective tissue disease (4 sources)Other symptoms and signs involving the musculoskeletal system; Translations: [Other musculoskeletalsymptoms referable to limbs]12-04-2024 EpisodicOther connective tissue disease (1 source)Spasm; Translations: [Other muscle spasm]Onset: 34-95-2155Brdiepdj Other connective tissue disease (4 sources)Cramp; Translations: [Cramp and spasm]79-43-3519XmryfxmwDyroo connective tissue disease (1 source)Cramp and spasm; Translations: [Cramp and spasm]Onset: 05-04-2025 EpisodicOther diseases of kidney and ureters (1 source)Acquired renal cyst without neoplastic change; Translations: [Cyst of kidney, acquired]Onset: 00-51-8595QszqmawxBqqbe diseases of kidney and ureters (20 sources)Cyst of nivgop06-71-4904NfoltjagCtxns diseases of kidney and ureters (2 sources)Urinary tract obstruction; Translations: [Other obstructive and reflux uropathy]Onset: 19-88-6512KxuqgkriGxohs diseases of veins and lymphatics (20 sources)Lymphedema of bilateral lower limbs; Translations: [Lymphedema, not elsewhere classified]Onset: 296208-33-9670WnxviegXzszz diseases of veins and lymphatics (4 sources)Lymphedema; Translations: [Lymphedema, not elsewhere classified] 05-67-3076DijnmttNdibs diseases of veins and lymphatics (5 sources)Lymphedema, not elsewhere classified; Translations: [Other lymphedema]57-98-8861DpoefslUjzaw endocrine disorders (20 sources)Hormone level - paimcki93-48-4566IkbrtlzoHrbme hereditary and degenerative nervous system conditions (20 sources)Restless legs; Translations: [Restless legs syndrome]Onset: 480340-84-0289BhnfqohCztmd lower respiratory disease (6 sources)Hypoxemia; Translations: [Hypoxemia]02-64-6102IowbygktYorzr lower respiratory disease (2 sources)Hypoxemia; Translations: [Hypoxemia]21-30-4066AxrlbpsyGeakk lower respiratory disease (4 sources)Acute respiratory distress; Translations: [Acute respiratory distress]04-28-6122HhiarnhgNxogp lower respiratory disease (4 sources)Acute respiratory distress; Translations: [Other pulmonary insufficiency, not elsewhere classified]76-98-6213YdbjhxxoOxfnh lower respiratory disease (3 sources)Acute pulmonary edema; Translations: [Acute pulmonary edema]Onset: 949416-44-4135PiemmwdmJmljh lower respiratory disease (1 source)Abnormal breathing; Translations: [Other abnormalities of breathing] Onset: 39-35-6018JtozaetyBaiqp lower respiratory disease (2 sources)Cough; Translations: [Acute cough]52-93-6442EsaswfkzNxakq male genital disorders (1 source)Disorder of penis; Translations: [Other specified disorders of penis] Onset: 55-86-3614XhnteiyDxxti nervous system disorders (8 sources)Difficulty walking; Translations: [Difficulty in walking, not elsewhere classified]04-77-0651PsqpvlfCuvnl non-traumatic joint disorders (1 source)Pain in right hip joint; Translations: [Pain in right hip]Onset: 26-55-3154PvtpoffpOmisb non-traumatic joint disorders (1 source)Pain of left shoulder joint; Translations: [Pain in left shoulder] Onset: 70-38-4642TdnkgsnjAgdiu non-traumatic joint disorders (2 sources)Pain in right shoulder; Translations: [Pain in joint, shoulder region]62-18-8928UirvmbbmBfyav nutritional; endocrine; and metabolic disorders (20 sources)Morbid obesity; Translations: [Morbid (severe) obesity due to excess calories]Onset: 146363-01-9827DcczetuWqofn nutritional; endocrine; and metabolic disorders (1 source)Obese class II; Translations: [Body mass index (BMI) 38.0-38.9, adult] Onset: 94-82-8672GjbhbagBemqe nutritional; endocrine; and metabolic disorders (10 sources)Body mass index 30+ - obesity; Translations: [Body mass index (BMI) 35.0-35.9, adult]01-90-1609YkocwsoLhkzz nutritional; endocrine; and metabolic disorders (20 sources)Alveolar hypoventilation; Translations: [Morbid (severe) obesity with alveolar hypoventilation]Onset: 443344-32-8496GiwpyhiFrder nutritional; endocrine; and metabolic disorders (5 sources)Morbid (severe) obesity with alveolar hypoventilation; Translations: [Obesity hypoventilation syndrome]97-00-2963UzyjnjfLfnom nutritional; endocrine; and metabolic disorders (2 sources)Severe obesity; Translations: [Class 2 severe obesity due to excess calories with serious comorbidity and body mass index (BMI) of 38.0 to 38.9 in adult (CMS/[facility])]35-34-7581CifkzrrFqrsw nutritional; endocrine; and metabolic disorders (1 source)Obesity; Translations: [Obesity, unspecified]Onset: 50-51-5916Coypker Otitis media and related conditions (2 sources)Acute non-suppurative otitis media - serous; Translations: [Acute serous otitis media, right ear]56-53-5150KonqihpvOjqgqsuwr (except that caused by tuberculosis or sexually transmitted disease) (1 source)Pneumonia; Translations: [Pneumonia, unspecified organism]Onset: 66-86-5244OjvdwafsSkfepxzv codes; unclassified (20 sources)Obstructive sleep apnea syndrome; Translations: [Obstructive sleep apnea (adult) (pediatric)]Onset: 33-54-8734GlvxhpvTasgohmt codes; unclassified (1 source)Obstructive sleep apnea (adult) (pediatric); Translations: [Obstructive sleep apnea (adult)(pediatric)]62-39-0201NigpcjgAqkxkqae codes; unclassified (2 sources)Refused procedure - parent's wish; Translations: [Procedure and treatment not carried out because of patient's decision for other reasons]Onset: 12-88-9388VlgweryeCszjmimi codes; unclassified (6 sources)Edema; Translations: [Edema, unspecified]36-86-6216FpujjycpRgjtmgup codes; unclassified (3 sources)Edema, unspecified; Translations: [Edema]35-38-1904UsbyditsGxmwdrfl codes; unclassified (1 source)Localized edema; Translations: [Bilateral leg edema]Onset: 10-23-2023 EpisodicResidual codes; unclassified (1 source)Presence of other specified devices; Translations: [Chronic indwelling Elliott catheter]Onset: 83-16-5520DyvfzyeySuovskjg codes; unclassified (1 source)Device in situ; Translations: [Presence of other specified devices] Onset: 69-35-4215QsasxyqsFbfpyaqu codes; unclassified (1 source)Noncompliance with medication regimen; Translations: [Patient's other noncompliance with medicationregimen for other reason]Onset: 13-52-3605Gnqncfhw Respiratory failure; insufficiency; arrest (adult) (20 sources)Acute on chronic hypoxemic and hypercapnic respiratory failure; Translations: [Acute and chronic respiratory failure with hypoxia]Onset: 380567-65-3993ScyzdcbUyucahqghuo injury; contusion (1 source)Contusion of left chest wall; Translations: [Contusion of left front wall of thorax, initial encounter]Onset: 13-07-8453DuxnnijoBhlpakmtlemn (20 sources)Long-term current use of gzsezoc01-18-7085Ixqkzynzgccx (20 sources)Procedure not lepa91-65-5696Lxhovidsubmi (10 sources)Finding of sensation of nsbrzjo39-06-6683Oyalwkz tract infections (2 sources)Urinary tract infectious disease; Translations: [Urinary tract infection, site not specified]Onset: 78-52-0386Atfjdauh Past or Other Problems Problem ClassificationProblemDateDocumented DateEpisodic/Chronic Administrative/social admission (20 sources)Patient encounter status; Translations: [Persons encountering health services in other specified circumstances]Onset: 12-33-9708CrzryooaYudvyhdl injury or internal injury (11 sources)Late effect of internal injury to intra-abdominal organs; Translations: [Unspecified injury of unspecified intra-abdominal organ, sequela] Onset: 272492-73-4174MxbohuijYvmvsmcx mellitus without complication (20 sources)Type 2 diabetes mellitus; Translations: [Diabetes mellitus]Onset: 06-11-2023 Resolved: 759732-52-6277KkkyvyaTbrdqsr on above:linked DM with HLD per outpatient CDI policy.linked DM with CKD per outpatient CDI policy.Diabetes mellitus without complication (13 sources)Hyperglycemia; Translations: [Hyperglycemia, unspecified]Onset: 83-54-3488FthedtstJefhambdxrmgx symptoms and ill-defined conditions (20 sources)Retention of urine; Translations: [Retention of urine, unspecified] Onset: 156309-28-1405DumzggxzOdylfio (20 sources)Onychomycosis; Translations: [Tinea unguium]Onset: 06-13-2023 Resolved: 899871-18-6100QbimsvkwStetlkuqcsu chest pain (20 sources)Chest wall pain; Translations: [Other chest pain]Onset: 06-21-2024 46-92-6360EzlfoyfjFftda aftercare (20 sources)Long-term current use of insulin; Translations: [skilled nursing (current) use of insulin]Onset: 27-50-3052OnzjolidXellj bone disease and musculoskeletal deformities (20 sources)Absence of toe; Translations: [Acquired absence of other toe(s), unspecified side]Onset: 024081-10-3814SknrcxjvTcvlrba on above:noted on 12/09/2018 XR Foot 3+ Views Right. added per outpatient CDI policy.Other connective tissue disease (20 sources)Cramp in lower limb; Translations: [Cramp and spasm]Onset: 365708-35-2341VufhabjjHkygm connective tissue disease (11 sources)Muscle weakness; Translations: [Muscle weakness (generalized)]Onset: 005785-72-0703PysjumddProew lower respiratory disease (20 sources)Chronic cough; Translations: [Chronic cough]Onset: 06-13-2023 43-84-6833ScsyefzlNlgsz nervous system disorders (20 sources)Impairment of balance; Translations: [Other abnormalities of gait and mobility]Onset: 089882-56-0576AklrlrxbFgktj nervous system disorders (11 sources)Coordination problem; Translations: [Unspecified lack of coordination]Onset: 660319-45-3412YpgufvkyOupmz non-traumatic joint disorders (20 sources)Knee joint effusion; Translations: [Effusion, unspecified knee] Onset: 06-13-2023 Resolved: 178476-15-7571ThigquowEniuy non-traumatic joint disorders (20 sources)Pain in right knee; Translations: [Pain in joint, lower leg]Onset: 06-13-2023 Resolved: 081785-36-4089WxufcuvpCnqzu nutritional; endocrine; and metabolic disorders (20 sources)Body mass index 40+ - severely obese; Translations: [Body mass index (BMI) 40.0-44.9, adult]Onset: 09-13-2022 Resolved: 803683-78-5350ZobkyzaTshdd screening for suspected conditions (not mental disorders or infectious disease) (8 sources)Blood chemistry abnormal; Translations: [Other specified abnormal findings of blood chemistry]Onset: 44-33-2781HwzerxtyJxzilpqecvj failure; insufficiency; arrest (adult) (20 sources)Acute respiratory failure; Translations: [Acute respiratory failure with hypoxia]Onset: 06-12-2023 Resolved: 76-58-9791GsbogocqPuxnqiwhtld; intervertebral disc disorders; other back problems (20 sources)Low back pain; Translations: [Low back pain]Onset: 06-13-2023 Resolved: 186986-22-0292DjgvkrauUjelddcdlzlv (20 sources)Methicillin resistant Staphylococcus aureus (organism)Onset: 025503-27-8195Gskkblv on above:Left FootVaricose veins of lower extremity (20 sources)Varicose veins of lower extremity; Translations: [Asymptomatic varicose veins of unspecified lower extremity]Onset: EpisodicViral infection (1 source)Disease caused by 2019-nCoV; Translations: [COVID-19]Onset: 03-09-2022 Results Test NameValueInterpretationReference RangeFacilityGlucose (Bld) [Mass/Vol] Ordered By: Amanda Cesar on 07-03-9204Xrdjtuy Blood, VTG182 mg/dLBarnes-Jewish Saint [facility] HospitalLaboratory - Hematology and Cell countson 64-52-7036KwM7b (Bld) [Mass fraction]15 %[facility] HospitalNo Panel InformationOrdered By: Amanda Cesar on 30-55-4160BVMB HealthcareXR Foot 3+ Views Lefton 94-04-5458VM Foot 3+ Views Left Exam Date/Time: 06/04/2025 16:52 EDT Reason for Exam: LEFT FOOT ULCER Report IMPRESSION: NO ACUTE OSSEOUS ABNORMALITY IDENTIFIED BY RADIOGRAPHY. EXAM: XR Foot 3+ Views Left COMPARISON: None available HISTORY: Foot ulcer TECHNIQUE: AP, lateral and oblique views of the foot obtained. FINDINGS: Postsurgical changes of mid/forefoot amputation. No definitive osseous erosions. No acute fracture. Evaluation of the soft tissues is suboptimal secondary to material overlying the foot and ankle. Given this, no definitive soft tissue emphysema. Thin linear 7 mm foreign body is present within the plantar soft tissues at the level of the cuboid best seen on the lateral view. Ordering Provider: , FINAL REPORT Dictated: 06/05/2025 6:35 am Shaquille Broussard DO Signed (Electronic Signature): 06/05/2025 6:35 am Signed by: Shaquille Broussard DO Transcribed by: KAT Technologist: EmmaCommunity Memorial HospitalCapillary Glucose POCon 68-04-5442Hqasbey [Mass/Vol]228 mg/gRSahd28-92FijgneCommunity Memorial HospitalComment on above:Result Comment: Notified RN/MDPerformed By: #### [id number] #### [facility] [address] [place], [place] [address]Yoyundahf Note-Nursingon 47-88-6412Nwzvbuoib Note-Nursing Discharge Note-Nursing NICOLE LORA :1960 Visit [...] Keep scheduled appointment Where: [address] [place] [address]- Business (1) Medications What How Much When Why Instructions Next Dose New insulin glargine (Insulin Glargine Prefilled Pen 100 units/ mL subcutaneous solution) 30 Units Subcutaneous 2 times a day Type 2 diabetes mellitus with hyperosmolar nonketotic hyperglycemia Refills: 1 Pickup at [facility] #[id number] Tonight at 9:00 PM New insulin lispro (HumaLOG KwikPen 100 units/ mL injectable solution) See instructions Type 2 diabetes mellitus with hyperosmolar nonketotic hyperglycemia TID PRN AC MEALS 150- 200 2 units, 200-250 4 u, 251-300 6 u, 301-350 8 u, 351- 400 10 u, > 401 call your PCP Pickup at [facility] #[id number] Today at lunch Changed insulin regular (HumuLIN [...] Mouth Every day Hypertension Resume 03/08/2025 Unchanged [facility] (Glucose Kit) See instructions Hyperglycemia Glucose meter. Include autolet, matching test strips, lancets, & alcohol wipes, #100 or as allowed by insurance; DX: E11.9 Unchanged Misc Prescription (Pen Needle 31G x 6mm) See instructions Hyperglycemia Pen Needle 31G x 6mm [id number] [address] [place], [place] [id number] [phone] Test Results CBC BMP WBC: 6.9 E9/L [...] CO2: 26 mmol/L (02/18 (more content not included)...[facility]In[facility] Clinical Summaryon 66-74-1356Glfuzkwuu Clinical SummaryInpatient Clinical Summary [address] [address] Clinical Summary Person Information: Name: NICOLE LORA Age: 65 Years : 1960 Sex: Male PCP: Mendy LYMAN, Mounika Lugo Marital Status: Phone: [phone] Race: White Ethnicity: Non- or Language: Panamanian Visit Id: Visit Reason: Hyperglycemia; Medical problem - minor; Leg pain-swelling; LEG PAIN Speciality: Acuity: Enc Type: Inpatient Med Service: Medical Arrival: 03/05/2025 19:53:39 Discharge: Dispo Type: Admit to [facility] Address: [address] [id number] Provider Notes: Diagnosis: 1:Leg muscle spasm; 4:CKD [...] macular edema associated with type2 diabetes mellitus Acquired absence of other right [...] up: With: Address: When: [place] [address] Business (1) Within 3 to 5 days Comments: Call for followup appointment Patient Education Information: Hyperglycemic Hyperosmolar [facility]In[facility] Patient Summaryon 95-94-1050Qkqlrqrfy Patient SummaryInpatient Patient Summary [address] [address] Patient Discharge Instructions PERSON INFORMATION [...] following list of follow-up instructions, prescriptions, and patienteducation materials: PATIENT FOLLOW-UP INFORMATION Diet: Calorie Controlled- [...] up: With: Address: When: [place] [address] Business (1) Within 3 to 5 days Comments: Call for followup appointment In the event that this physician does not participate in your insurance network, please consult with your insurance company to find a nearby participating provider. Comment: IGENO JOHN A, have received the attached patient education materials/instructions and have verbalized understanding: Patient Signature Date Clinican/Nurse Signature Date HERE ARE THE MEDICATION CHANGES THAT OCCURRED DURING YOUR HOSPITAL STAY New Medications [facility] #[id number], [address] [place], [place] [id number], [phone] insulin glargine (Insulin Glargine Prefilled Pen 100 units/mL subcutaneous solution) 30 Units Subcutaneous 2 times a day. Refills: 1. Last Dose: Next Dose: insulin lispro (HumaLOG KwikPen 100 units/mL injectable solution) TID PRN AC MEALS 150- 200 2 units, 200-250 4 u, 251-300 6 u, 301-350 8 u, 351-400 10 u, > 401 call your PCP. Refills: 0. Last Dose: Next Dose: Medications to Continue Taking That Have Changed Other Medications START: insulin regular (HumuLIN R KwikPen (Concentrated) human recombinant 500 units/mL subcutaneous solution) inject 15 units TID AC MEALS. Refills: 1. Last Dose: Next Dose: STOP: insulin regular (HumuLIN R KwikPen (Concentrated) human recombinant 500 units/mL subcutaneoussolution) inject 40 units under the skin in the morning, 40 in the evening and 20 at bedtime.. Refills: 1. Medications to Continue with No Changes Other Medications gabapentin (gabapentin 600 mg Tab) 1 Tablets By Mouth 3 times a day. Last Dose: Next Dose: losartan (losartan 50 mg Tab) 1 Tablets By Mouth every day. Refills: 1. Last Dose: Next Dose: Misc Prescription (Glucose Kit) Glucose meter. Include autolet, matching test strips, lancets, & alcohol wipes, #100 or as allowed by insurance; DX: E11.9. Refills: 0. Last Dose: Next Dose: Misc Prescription (Pen Needle 31G x 6mm) Pen Needle 31G x 6mm. Refills: 1. Last Dose: Next Dose: Comment: MEDICATION LIST PROVIDED FOR YOU IS [...] Instructions: Hyperglycemic Hyperosmolar State (more content not included)...[facility] CampusInterdisciplinary Note - Case Manageron 03-07-2025 Interdisciplinary Note - Case ManagerInterdisciplinary Note - Station Installation Supervisor Patient is awake and alert in bed, previously rounded with Dr. Macario. Patient is from home independently, states with daughter 4 days per week who is disabled and has cancer. States trying to get motorized scooter approved by insurance and CRM contacted PCP office yesterday regarding this. Declines any HH or PM or further needs. Family will transport at [place]. Medicare rights reviewed and second copy provided. . PCP verified and insurance information reviewed and DME discussed. Contact information provided and white board updated.[facility] CampusComment on above:Result Comment: Electronically Signed By: Darlyn HALL, Lolis\.samir\Date and Time Signed: 03/07/25 09:09 EDTPatient Education - Texton 61-86-1631Fpyfzbq Education - TextPatient Education - Text [facility] CampusBMPon 96-23-2999Rnmpi gap [Moles/Vol]12 mmol/L [place]630 Jones StreetComment on above:Performed By: #### [id number] #### [facility] [address] [place], [place] [address]GIP/Creat Ratio22 No AlhkmNgnr62-82QqakfcCommunity Memorial Hospital Comment on above:Performed By: #### [id number] #### [facility] [address], [place] [address]Cjfickp [Mass/Vol]8.4 mg/dLLow8.9-11.1FUniversity Hospitals Portage Medical CenterComment on above:Performed By: #### [id number] #### [facility] [address] [place], [place] [address]Ukjvyktx [Moles/Vol]100 mmol/NRzd951-116WndikcCommunity Memorial HospitalComment on above:Result Comment: Delta check verifiedPerformed By: #### [id number] #### [facility] [address] [place], [place] [address]VN8 [Moles/Vol]26 mmol/FDuviim31-57FbgsamCommunity Memorial Hospital Comment on above:Performed By: #### [id number] #### [facility] [address] [place], [place] [address]Tdfdnsgzad [Mass/Vol]1.6 mg/dLHigh0.5-1.3FUniversity Hospitals Portage Medical CenterComment on above:Result Comment: Delta check verifiedPerformed By: #### [id number] #### [facility] [address] [place], [place] [address]Gfqguvr [Mass/Vol]224 mg/oFTmsv53-940LbokuwCommunity Memorial HospitalComment on above:Performed By: #### [id number] #### [facility] [address] [place], [place] [address]Molwupyew [Moles/Vol]3.8 mmol/LNormal3.5-5.3FUniversity Hospitals Portage Medical CenterComment on above:Result Comment: Delta check verifiedPerformed By: #### [id number] #### [facility] [address], [place] [address]Vinokj [Moles/Vol]134 mmol/OYcr174-065XvhkwaCommunity Memorial HospitalComment on above:Performed By: #### [id number] #### [facility] [address], [place] [address]Bynb nitrogen [Mass/Vol]35 mg/dLHigh5-21Community Memorial HospitalComment on above:Performed By: #### [id number] #### [facility] [address], [place] [address]Ifkcprtmn Glucose POCon 16-36-9541Vhdynoo [Mass/Vol]172 mg/dL Rkpx35-84UcqirgCommunity Memorial HospitalComment on above:Result Comment: Notified RN/MDPerformed By: #### [id number] #### [facility] [address], [place] [address]Wbceaux [Mass/Vol]121 mg/aTJmnw63-56RnrcgqCommunity Memorial Hospital Comment on above:Result Comment: Notified RN/MDPerformed By: #### [id number] #### [facility] [address], [place] [address]Ppfcthe [Mass/Vol]186 mg/wMJulz31-07NxbljbCommunity Memorial Hospital Comment on above:Performed By: #### [id number] #### [facility] [address], [place] [address]Vtaqjnk [Mass/Vol]225 mg/xBRgde48-21AzlddcCommunity Memorial Hospital Comment on above:Performed By: #### [id number] #### [facility] [address], [place] [address]Rozukjj [Mass/Vol]128 mg/cXPqgm68-71MdwnnbCommunity Memorial Hospital Comment on above:Performed By: #### [id number] #### [facility] [address], [place] [address]Hjyhbep [Mass/Vol]168 mg/gNCmel11-92LjoplrCommunity Memorial Hospital Comment on above:Result Comment: Cleaned MeterPerformed By: #### [id number] #### [facility] [address], [place] [address]Nzebmhd [Mass/Vol]163 mg/dOYbua11-18Zppdai [facility] Comment on above:Result Comment: Cleaned MeterPerformed By: #### [id number] #### [facility] [address], [place] [address]Zthmtor [Mass/Vol]229 mg/gSGeej77-26Gsmrmn[address] Comment on above:Result Comment: Cleaned MeterPerformed By: #### [id number] #### [facility] [address], [place] [address]Yhsfrwk [Mass/Vol]214 mg/kQDnxl08-63Jymndr[address] Comment on above:Result Comment: Cleaned MeterPerformed By: #### [id number] #### [facility] [address], [place] [address]Latcffc [Mass/Vol]241 mg/fOXguo11-39Neneqy[address] Comment on above:Result Comment: Cleaned MeterPerformed By: #### [id number] #### [facility] [address], [place] [address]Bcblvly [Mass/Vol]322 mg/yARzpc96-48Khelen[address] Comment on above:Result Comment: Cleaned MeterPerformed By: #### [id number] #### [facility] [address], [place] [address]Iepkieh [Mass/Vol]384 mg/uGSsjq28-87Szjqxg[address] Comment on above:Result Comment: Cleaned MeterPerformed By: #### [id number] #### [facility] [address], [place] [address]Ucrukmz [Mass/Vol]440 mg/uFJfha02-66Benukh[address] Comment on above:Result Comment: Cleaned MeterPerformed By: #### [id number] #### [facility] [address], [place] [address]DE Note-Physicianon 03-64-2539DQ Note-PhysicianED Note-Physician Basic Information Time Seen: Alejandro Silva [...] points to the anterolateral aspect left thigh. Thepatient states the leg is cramping and moves [...] and Complexity of Problems Differential Diagnosis: [] [facility] Data External documents reviewed: [] My EKG interpretation: [] My CT interpretation: [] My X-ray interpretation: [] My Ultrasound interpretation: [] Decision rules/scores evaluated: [] Discussed with: Hospitalist Treatment and Disposition ED Course: The patient presented with muscle spasms/cramps on the left leg. The patient states thathe has been drinking a lot of water. He was found to be on hyperosmolar nonketotic hyperglycemic state. The patient is alert and oriented. He does not appear to be confused. His blood glucose is 1084. Blood work reviewed. The patient has pseudohyponatremia. Bicarb is normal. No gap. The patient haschronic kidney disease. The BUN and creatinine are at the baseline. The patient was given 2 L of normal saline. The case was discussed with the hospitalist who recommends restarting the insulin drip.The patient was given 10 units of insulin [...] 2 diabetes mellitus with hyperosmolarity without nonketotic hyperglycemic- hyperosmolar coma (N[facility])) 3. Pseudohyponatremia (R79.89: Other specified [...] Injection-Insulin, IV Push, Once, Stop date 03/05/25 21:17:00EDT, STAT, Start date 03/05/25 21:17:00 EDT morphine, 4 mg = 1 mL, Injection, IV Push, Once, Stop date 03/05/25 21:01:00 EDT, ST (more content not included)...[facility] CampusComment on above:Result Comment: Electronically Signed By: Alejandro Silva M.D.\.br\Date and Time Signed: 03/06/2500:11 EDTExtra Bryan 65-27-6436JW Tube CollectedYesInvalid Interpretation Providence HospitalComment on above:Performed By: #### [id number] #### [facility] [address] [place] [address]Uhsronggg 57-29-3720Unfezqy [Mass/Vol]551 mg/oQZskthwzv48-913 [facility] HospitalComment on above:Result Comment: Critical Result Verified by Previous Result Critical Result S_GLU:551 Called to and read back by: DIGNA MARX at: 03/06/2025 00:04:06 by:[id number] By: #### [id number] #### [facility] [address], [place] [address]Yctgpgvle Clinical Summaryon 99-11-5762Bwltffrbv Clinical SummaryInpatient Clinical Summary [address] [address] Clinical Summary Person Information: Name: NICOLE LORA Age: 65 Years : 1960 Sex: Male PCP: Mendy LYMAN, Mounika Lugo Marital Status: Phone: [phone] Race: White Ethnicity: Non- or Language: Panamanian Visit Id: Visit Reason: Hyperglycemia; Medical problem - minor; Leg pain-swelling; LEG PAIN Speciality: Acuity: Enc Type: Inpatient Med Service: Medical Arrival: 03/05/2025 19:53:39 Discharge: Dispo Type: Admit to [facility] Address: [address] [id number] Provider Notes: Diagnosis: 1:Leg muscle spasm; 4:CKD [...] macular edema associated with type2 diabetes mellitus Acquired absence of other right [...] Physician: Referring Physician: Follow up: Patient Education Information:[facility] CampusInpatient Patient Summaryon 63-99-4691Irhvnvejw Patient SummaryInpatient Patient Summary [place] [address] Patient Discharge Instructions PERSON INFORMATION Name: NICOLE [...] following list of follow-up instructions, prescriptions, and patienteducation materials: PATIENT FOLLOW-UP INFORMATION Diet: Discharge Activity: [...] A, have received the attached patient education materials/instructions and have verbalized understanding: Patient Signature Date Clinican/Nurse Signature Date HERE ARE THE MEDICATION CHANGES THAT OCCURRED DURING YOUR HOSPITAL STAY Medications to Continue with No Changes Other Medications gabapentin (gabapentin 600 mg Tab) 1 Tablets By Mouth 3 times a day. Last Dose: Next Dose: insulin regular (HumuLIN R KwikPen (Concentrated) human recombinant 500 units/mL subcutaneous solution) inject 40 units under the skin in the morning, 40 in the evening and 20 at bedtime.. Refills: 1. Last Dose: Next Dose: losartan (losartan 50 mg Tab) 1 Tablets By Mouth every day. Refills: 1. Last Dose: Next Dose: Misc Prescription (Glucose Kit) Glucose meter. Include autolet, matching test strips, lancets, & alcohol wipes, #100 or as allowed by insurance; DX: E11.9. Refills: 0. Last Dose: Next Dose: Misc Prescription (Pen Needle 31G x 6mm) Pen Needle 31G x 6mm. Refills: 1. Last Dose: Next Dose: Comment: MEDICATION LIST PROVIDED FOR YOU IS [...] to serve you. Thank you for choosing [facility] CampusInterdisciplinary Note - Case Manageron 03-06-2025 Interdisciplinary Note - Case ManagerInterdisciplinary Note - Station Installation Supervisor CRM to room ICU 7 Patient is awake, alert and oriented. Patient is from home alone. His Daughter [place] transport him at [place]. Per Patient he lives in the same apartment [place] as one of his Daughters, he does assist her every few days because she has cancer. He is scheduled to be with her on 03/07 and [facility]. Patient PCP, DME and [...] Dr Macario patient may move to the [facility]. Patient was provided CRM contact, white [...] with patient in regard to his electric scooterBarberton Citizens HospitalComment on above: Result Comment: Electronically Signed By: Jodee Giang\.br\Date and Time Signed: 03/06/25 16:16 EDTInterdisciplinary Note - Case ManagerInterdisciplinary Note - Station Installation Supervisor CRM to room ICU 7 Patient is awake, alert and oriented. Patient is from home alone. His Daughter will transport him at [place]. Per Patient he lives in the same apartment [place] as one of his Daughters, he does assist her every few days because she has cancer. He is scheduled to be with her on 03/07 and would prefer [place] [facility] [place] or 03[place]. Patient PCP, DME and [...] Dr Macario patient may move to the [facility]. Patient was provided CRM contact, white board updated. CRM following DC date TBD, DC plan home, declined needsWay[facility] Comment on above:Result Comment: Electronically Signed By: Jodee Giang.br\Date and Time Signed: 03/06/25 10:21 EDTPatient Education - Texton 42-92-7182Boqfdvj Education - TextPatient Education - TextNormalFisher Bell Medical CenterXR Chest Single Viewon 49-09-0090KS Chest Single ViewExam Date/Time: 03/05/2025 21:18 EDT Reason for Exam: Shortness of breath (SOB) Report IMPRESSION: No significant interval change from prior. EXAMINATION/TECHNIQUE: XR Chest Single View HISTORY: Shortness of breath. COMPARISON: 12/20/2024. RESULT: Elevation left hemidiaphragm. Probable scarring/atelectasis at the lung bases, especially on the left, grossly unchanged. No large pleural effusion. No pneumothorax. Stable cardiomediastinal silhouette. No acute osseous findings. Ordering Provider: Alejandro Silva FINAL REPORT Dictated: 03/06/2025 9:44 am Prmio Robles MD Signed (Electronic Signature): 03/06/2025 9:44 am Signed by: Primo Robles MD Transcribed by: KAT Technologist: [facility] HamiltoneGFRon 03-90-3302gWTW31 mL/min/1.73 m2Low>=59[facility] HospitalComment on above:Performed By: #### [id number] #### [facility] [address], [place] [address]ASMas 58-95-0387Cearzcf [Mass/Vol]1084 mg/rIBhukkulg10-551 [facility] HospitalComment on above:Result Comment: Critical Result Verified by Repeat Analysis Critical Result S_GLU:1084 Called to and read back by: ARLETH GE at: 03/05/2025 21:05:22 by:[id number] By: #### [id number] #### [facility] [address], [place] [address]Tplnbs [Moles/Vol]119 mmol/XZcnjrtkq234-018YushsfCommunity Memorial HospitalComment on above:Result Comment: Critical Result Verified by Repeat Analysis Critical Result S_NA of 119 Called to and read back by: ARLETH GE at: 03/05/2025 21:05:22 by:[id number] By: #### [id number] #### [facility] [address], [place] [address]Lwepl gap [Moles/Vol]13 mmol/LNormal6-16Community Memorial HospitalComment on above:Performed By: #### [id number] #### [facility] [address], [place] [address]ZPM/Creat Ratio21 No KtpebWeyd59-92WvpqsfCommunity Memorial Hospital Comment on above:Performed By: #### [id number] #### [facility] [address], [place] [address]Tcuwmfv [Mass/Vol]8.4 mg/dLLow8.9-11.1FUniversity Hospitals Portage Medical CenterComment on above:Performed By: #### [id number] #### [facility] [address], [place] [address]Uefgoziy [Moles/Vol]86 mmol/REqe878-480DtjefvCommunity Memorial HospitalComment on above:Performed By: #### [id number] #### [facility] [address], [place] [address]XL2 [Moles/Vol]25 mmol/PHnhurn36-96MmmvyiCommunity Memorial Hospital Comment on above:Performed By: #### [id number] #### [facility] [address], [place] [address]Oyjpahozui [Mass/Vol]1.9 mg/dLHigh0.5-1.3FUniversity Hospitals Portage Medical CenterComment on above:Performed By: #### [id number] #### [facility] [address], [place] [address]Hwftnrauf [Moles/Vol]4.6 mmol/LNormal3.5-5.3FUniversity Hospitals Portage Medical CenterComment on above:Performed By: #### [id number] #### [facility] [address], [place] [address]Padf nitrogen [Mass/Vol]40 mg/dLHigh5-21[facility] Memorial HospitalComment on above:Performed By: #### [id number] #### [facility] [address], [place] [address]CDFCka 49-18-5926Zfyg HB Qnt0.45 mmol/LHigh0.02-0.27[facility] Memorial HospitalComment on above:Performed By: #### [id number] #### [facility] [address], [place] [address]AZW w/ Auto Diffon 05-05-1691Nmpcpgfa Absolute0.1 E9/LNormal 0.0-0.2FUniversity Hospitals Portage Medical CenterComment on above:Performed By: #### [id number] #### [facility] [address], [place] [address]Tjaezrwkh/100 WBC (Bld)0.9 %Normal0.0-2.0[facility] Memorial HospitalComment on above:Performed By: #### [id number] #### [facility] [address] [place] [address]Kot Absolute0.2 E9/LNormal0.0-0.5FUniversity Hospitals Portage Medical Center Comment on above:Performed By: #### [id number] #### [facility] [address], [place] [address]Wdvnfzapwnr/100 WBC (Bld)2.4 %Normal0.0-8.0[facility] Memorial HospitalComment on above:Performed By: #### [id number] #### [facility] [address], [place] [address]Qlvyzzzmuje distribution width (RBC) [Ratio]12.9 %Normal 10.9-14.2FUniversity Hospitals Portage Medical CenterComment on above:Performed By: #### [id number] #### [facility] [address], [place] [address]Byhaflwuur (Bld) [Volume fraction]44.1 %Xozfgq84.7-49.0[facility] HospitalComment on above:Performed By: #### [id number] #### [facility] [address], [place] [address]Xomeumqwqn (Bld) [Mass/Vol]14.7 g/wDMrizyw70.5-17.5FUniversity Hospitals Portage Medical CenterComment on above:Performed By: #### [id number] #### [facility] [address] [place] [address]Soqdp Absolute1.2 E9/LNormal1.0-4.0[facility] Comment on above:Performed By: #### [id number] #### [facility] [address] [place] [address]Wabcczbxhhk/100 WBC (Bld)17.9 %Mgkokg07.0-50.0[facility] Memorial HospitalComment on above:Performed By: #### [id number] #### [facility] [address] [place] [address]UZX (RBC) [Entitic mass]31.2 elUtiqoi61.0-34.0Community Memorial HospitalComment on above:Performed By: #### [id number] #### [facility] [address] [place] [address]YAUW (RBC) [Mass/Vol]33.2 g/aILqdxbz35.4-36.0Community Memorial HospitalComment on above:Performed By: #### [id number] #### [facility] [address] [place] [address]CJA (RBC) [Entitic vol]93.8 xISfjkin82.0-100.0Community Memorial HospitalComment on above:Performed By: #### [id number] #### [facility] [address] [place] [address]Nmqg Absolute0.4 E9/LNormal0.2-1.0[facility] Comment on above:Performed By: #### [id number] #### [facility] [address] [place] [address]Rrpqnjyvw/100 WBC (Bld)6.5 %Normal4.0-14.0Community Memorial HospitalComment on above:Performed By: #### [id number] #### [facility] [address] [place] [address]Apuvhg Absolute5.0 E9/LNormal2.0-7.5FUniversity Hospitals Portage Medical Center Comment on above:Performed By: #### [id number] #### [facility] [address] [place] [address]Puyrod Auto72.3 %Rwjppy43.0-75.0[facility] Comment on above:Performed By: #### [id number] #### [facility] [address], [place] [address]Zlhavtya713.0 E9/WNilhpb996.0-500.0[facility] Comment on above:Performed By: #### [id number] #### [facility] [address] [place] [address]Dulfhdxm mean volume (Bld) [Entitic vol]8.1 fLNormal6.4-10.8 [facility] HospitalComment on above:Performed By: #### [id number] #### [facility] [address] [place] [address]IVP7.7 E12/LNormal4.3-5.9Community Memorial HospitalComment on above:Performed By: #### [id number] #### [facility] [address] [place] [address]GVH6.9 E9/LNormal4.0-11.0Community Memorial HospitalComment on above:Performed By: #### [id number] #### [facility] [address] [place] [address]Nfpmokmac Glucose POCon 21-96-5815Jvtksva Cap>580Hilpbewl55-89 [facility] Memorial HospitalComment on above:Result Comment: Cleaned Meter Performed By: #### [id number] #### [facility] [address] [place] [address]Hmkavrt Cap>089Iizsjxxo97-88QennnfCommunity Memorial HospitalComment on above:Result Comment: Cleaned MeterPerformed By: #### [id number] #### [facility] [address] [place] [address] [place] [address]Djipsvr Cap>563Ntbqmuij02-72QauapaCommunity Memorial HospitalComment on above:Performed By: #### [id number] #### [facility] [address], [place] [address]VD Clinical Summaryon 37-43-5178RS Clinical SummaryED Clinical Summary [address] [address] ED Clinical Summary Person Information Name: NICOLE LORA/[facility] Age: 65 Years : 1960 Sex: Male Language: Panamanian PCP: Mounika Brooke MD Marital Status: Phone: [phone] Visit Id: Visit Reason: Hyperglycemia; Medical problem [...] 03/05/2025 21:34:31 03/05/2025 21:34:31 03/05/2025 21:34:31 ADDRESS: [address] [place] [id number] [facility] DOC NOTES: MEDICAL INFORMATION: Prescriptions Given: Medications [...] 1. PATIENT EDUCATION INFORMATION: Instructions: Follow up: DIAGNOSIS:NormalFisher Ramone Medical CenterED Patient Education Noteon 80-63-2040RA Patient Education NoteED Patient Education NoteNormalFisher Bell Medical CenterED Patient Summaryon 26-52-1520NG Patient SummaryED Patient Summary [place] [id number] Patient Discharge Instructions Person Information Name: NICOLE LORA Age: 65 Years Arrival Date: 03/05/2025 19:53:39 Discharge Diagnosis: Primary Care Physician: Mounika Brooke MD Provider Information Primary Provider: Alejandro Silva M.D. Advanced Osteopathic Resident:None The exam and treatment you received in the Emergency Department were for an urgent problem and are not intended as complete care. It is important that you follow up with a doctor, nurse practitioner,or physician???s customer assistant for ongoing care. If your symptoms become worse or you do not improve asexpected and you are unable to reach your [...] opioids can be used to help relieve hbfjqtnu-do-abldet pain and are often prescribed following a [...] guidance from the Food and Drug Administration (www.fda.gov/Drugs/ResourcesForYou). ??? Visit www.cdc.gov/drugoverdose to learn about the risks of opioids abuse and overdose. ??? If you believe you may be struggling with addiction, tell your health animal care worker and askfor guidance or call [facility]???S National Helpline at 3-805-919-IPOE. r Source: [place] Department of Health and Human Services/Center for Disease Control & Prevention [facility] (more content not included)...NormalCommunity Memorial HospitalExtra Blueon 88-79-9026Xwos Collected PlasmaYesInvalid Interpretation CodeCommunity Memorial HospitalComment on above:Performed By: #### [id number] #### [facility] [address], [place] [address]Vvgculivv 86-79-3327Rpupfte [Mass/Vol]726 mg/rBKujvniko00-587 [facility] HospitalComment on above:Result Comment: Critical Result Verified by Repeat Analysis Critical Result S_GLU:726 Called to and read back by: BINA GONZALEZ at: 03/05/2025 23:09:06 by:[id number] By: #### [id number] #### [facility] [address], [place] [address]Wxc Func Panelon 68-62-7243Koddkdv [Mass/Vol]3.3 g/dLNormal 3.3-5.0Community Memorial HospitalComment on above:Performed By: #### [id number] #### [facility] [address], [place] [address]Vuzcmos/Globulin [Mass ratio]1.2 {ratio}Normal1.1-2.2FUniversity Hospitals Portage Medical CenterComment on above:Performed By: #### [id number] #### [facility] [address], [place] [address]Sgb Nqwg535 Int._Unit/UEytn37-77WwaswfCommunity Memorial Hospital Comment on above:Performed By: #### [id number] #### [facility] [address], [place] [address]TJY68 Int._Unit/LNormal6-46Community Memorial HospitalComment on above:Performed By: #### [id number] #### [facility] [address] [place] [address]JQN18 Int._Unit/LNormal5-43Community Memorial HospitalComment on above:Performed By: #### [id number] #### [facility] [address] [place] [address]Htkg Direct0.1 mg/dLNormal0.0-0.4FUniversity Hospitals Portage Medical Center Comment on above:Performed By: #### [id number] #### [facility] [address] [place] [address]Baxr Indirect0.6 mg/dLNormal0.1-0.9[facility] Comment on above:Performed By: #### [id number] #### [facility] [address] [place] [address]Uspl Total0.7 mg/dLNormal0.0-1.1FUniversity Hospitals Portage Medical Center Comment on above:Performed By: #### [id number] #### [facility] [address] [place] [address]Iqqxklyw (S) [Mass/Vol]2.8 g/dLNormal1.4-4.0Community Memorial HospitalComment on above:Performed By: #### [id number] #### [facility] [address] [place] [address]Hknupai [Mass/Vol]6.1 g/dLNormal6.0-7.8Community Memorial HospitalComment on above:Performed By: #### [id number] #### [facility] [address] [place] [address]Lacsupwkqpd 54-13-2263Dzvaoapvc [Mass/Vol]2.0 mg/dLNormal 1.3-2.4FUniversity Hospitals Portage Medical CenterComment on above:Performed By: #### [id number] #### [facility] [address] [place] [address]Moa-Zilbpwi Noteon 04-47-7650Uzs-Arrival NotePre-Arrival Note Pre-Arrival Summary Name: , Current Date: 03/05/2025 19:54:07 EDT Gender: Male Date of : Age: 65 Pre-Arrival Type: EMS ETA: 03/05/2025 20:14:00 EDT Primary Care Physician: Presenting Problem: leg pain Pre-Arrival User: Liberty Cope RN Referring Source: Location: Completion Date/Time: 03/05/2025 19:44:00 [facility] Emergency Department Pre-Hospital Report Form Vital Signs: Pre-Hospital Report: Treatment in Route: Response to Treatment: Misc. Issues:NormalCommunity Memorial HospitalTroponinon 79-28-3044Ppyqewbf HS 10.10 pg/mLLow15.90-38.40Community Memorial HospitalComment on above:Result Comment: The 95% CI (Confidence Interval) PPV (Positive Predictive Value) for myocardial infarction in females is 38 pg/mL, in males 51 pg/mL. The results should be used in conjunction with clinical conditions of myocardial infarction. (Access High Sensitivity Troponin I Instructions For Use, [facility] [place], March 2018)Performed By: #### [id number] #### [facility] [address] [place] [id number] with Cult Rflxon 34-45-5639Zqxkj (U)ColorlessAbnormalYellow Community Memorial HospitalComment on above:Result Comment: Microscopic readings are only performed on those samples that meet specific criteria set forth by [facility].Performed By: #### [id number] #### [facility] [address], [place] [address]Dtervlw Ql (U)NegativeNormalNegativeCommunity Memorial Hospital Comment on above:Performed By: #### [id number] #### [facility] [address], [place] [address]PS BloodNegativeNormalNegTwin City Hospital Comment on above:Performed By: #### [id number] #### [facility] [address], [place] [address]RV ClarityClearNormalClearCommunity Memorial HospitalComment on above:Performed By: #### [id number] #### [facility] [address], [place] [address]BI Glucose4+ mg/dLAbnormalNegTwin City Hospital Comment on above:Performed By: #### [id number] #### [facility] [address], [place] [address]FK Leuk EstNegativeNormalNegTwin City Hospital Comment on above:Performed By: #### [id number] #### [facility] [address], [place] [address]JJ MucousNegativeNormalNegTwin City Hospital Comment on above:Performed By: #### [id number] #### [facility] [address], [place] [address]UH NitriteNegativeNormalNegTwin City Hospital Comment on above:Performed By: #### [id number] #### [facility] [address], [place] [address]OA pH6.0Invalid Interpretation Code5.0-9.0[facility] Memorial HospitalComment on above:Performed By: #### [id number] #### [facility] [address], [place] [address]CL Protein1+ mg/dLAbnormalNegTwin City Hospital Comment on above:Performed By: #### [id number] #### [facility] [address], [place] [address]VB QGQ7-2Sthnfj4-6Zuuvox [facility] HospitalComment on above: Performed By: #### [id number] #### [facility] [address], [place] [address]XW Spec Grav1.024Invalid Interpretation Code1.005-1.030[facility] HospitalComment on above:Performed By: #### [id number] #### [facility] [address], [place] [address]WE UrobilinogenNegativeNormalNegativeCommunity Memorial HospitalComment on above:Performed By: #### [id number] #### [facility] [address], [place] [address]GF ZNS2-0Lmffxu8-6Mttlnw [facility] HospitalComment on above: Performed By: #### [id number] #### [facility] [address], [place] [address]Fzvqzxrgzlpb (U) [Mass/Vol]NegativeNormalNegativeCommunity Memorial HospitalComment on above:Performed By: #### [id number] #### [facility] [address], [place] [address]AS Spec DescClean CatchNormalCommunity Memorial HospitalComment on above:Performed By: #### [id number] #### [facility] [address], [place] [address]wPPYnp 21-28-4047gZDW40 mL/min/1.73 m2Low>=59Community [facility] HospitalComment on above:Performed By: #### [id number] #### [facility] [address], [place] [address]Lzepw Metabolic Panelon 29-65-6167Izbbp gap [Moles/Vol]13.7 mmol/LNormal6.0-15.0The [facility] Physician GroupComment on above:Performed By: #### BMP, MG, BHOB, CBC #### [facility] [address] [place] [address] USACalcium [Mass/Vol]8.9 mg/dLNormal8.6-10.3The [facility] Physician GroupComment on above:Performed By: #### BMP, MG, BHOB, CBC #### [facility] [address] [place] [address] USAChloride [Moles/Vol]98 mmol/COntvoi82-375Adp [facility] Physician GroupComment on above:Performed By: #### BMP, MG, BHOB, CBC #### [facility] [address] [place] [address] USACO2 [Moles/Vol]23.1 mmol/LIvjuon47.0-31.0The [facility] Physician GroupComment on above:Performed By: #### BMP, MG, BHOB, CBC #### [facility] [address] [place] [address] USACreatinine [Mass/Vol]1.72 mg/dLHigh0.70-1.30The [facility] Physician GroupComment on above:Performed By: #### BMP, MG, BHOB, CBC #### [place] [address] USACreatinine Clr Calc Bympjklv59.60NoUNC [facility] Physician [facility] HospitalComment on above:Performed By: #### BMP, MG, BHOB, CBC #### [place] [address] USAEstimated GFR43.569 mL/MinNoUNC Medical Center Physician [facility] HospitalComment on above:Performed By: #### BMP, MG, BHOB, CBC #### [place] [address] USAGlucose [Mass/Vol]739 mg/dLOff scale dtzy19-100Kfn [facility] Physician GroupComment on above:Result Comment: Critical Result Called to and read back by: SAMPSON WESTON at: 12/22/2024 18:30:49 by:[id number] Random Glucose Reference Range is dependent on time and content of last meal. Glucose of more than 200 mg/dL in a nonstressed, ambulatory subject supports the diagnosis of Diabetes Mellitus. ADA recommended reference rangePerformed By: #### BMP, MG, BHOB, CBC #### [place] [address] USAPotassium [Moles/Vol]4.8 mmol/LNormal3.5-5.1The [facility] Physician GroupComment on above:Performed By: #### BMP, MG, BHOB, CBC #### [facility] [address] [place] [address] USASodium [Moles/Vol]130 mmol/XGmy964-199Pjb [facility] Physician GroupComment on above:Performed By: #### BMP, MG, BHOB, CBC #### [facility] [address] [place] [address] USAUrea nitrogen [Mass/Vol]38 mg/dLHigh7-25The [facility] Physician GroupComment on above:Performed By: #### BMP, MG, BHOB, CBC #### [facility] [address] [place] [address] USABeta Hydroxybuterateon 63-84-1274Aaef Hydroxybuterate1.12 mmol/LHigh0.02-0.27The [facility] Physician GroupComment on above:Result Comment: PERFORMED BY: [place] [address] PATHOLOGIST CASEWORK MANAGER MARIA LUISA SHAH M.D.Performed By: #### BMP, MG, BHOB, CBC #### [place] [address] USAComplete Blood Count Auto Diffon 25-84-7535Qntedqulz (Bld) [#/Vol]0.2 10*3/uLNormal0.0-0.2The [facility] Physician GroupComment on above: Result Comment: PERFORMED BY: [place] [address] PATHOLOGIST CASEWORK MANAGER MARIA LUISA SHAH M.D.Performed By: #### BMP, MG, BHOB, CBC #### [place] [address] USABasophils/100 WBC (Bld)2.6 %Normal.The [facility] Physician GroupComment on above:Performed By: #### BMP, MG, BHOB, CBC #### [facility] [address] [place] [address] USAEosinophils (Bld) [#/Vol]0.1 10*3/uLNormal0.0-0.45The [facility] Physician GroupComment on above:Performed By: #### BMP, MG, BHOB, CBC #### [place] [address] USAEosinophils/100 WBC (Bld)2.0 %Normal.The [facility] Physician GroupComment on above:Performed By: #### BMP, MG, BHOB, CBC #### [place] [address] USAErythrocyte distribution width (RBC) [Ratio]13.9 %Normal 12.0-14.8The [facility] Physician GroupComment on above:Performed By: #### BMP, MG, BHOB, CBC #### [place] [address] USAHematocrit (Bld) [Volume fraction]45.4 %Jnhwvn44.8-50.0The [facility] Physician GroupComment on above:Performed By: #### BMP, MG, BHOB, CBC #### [place] [address] USAHemoglobin (Bld) [Mass/Vol]15.2 g/kTOleaqo62.0-17.0The [facility] Physician GroupComment on above:Performed By: #### BMP, MG, BHOB, CBC #### [place] [address] USALymphocytes (Bld) [#/Vol]1.5 10*3/uLNormal1.00-4.8The [facility] Physician GroupComment on above:Performed By: #### BMP, MG, BHOB, CBC #### [place] [address] USALymphocytes/100 WBC (Bld)23.7 %Normal.The [facility] Physician GroupComment on above:Performed By: #### BMP, MG, BHOB, CBC #### [place] [address] USAMCH (RBC) [Entitic mass]31.5 jhUuuuip75.5-35.2The [facility] Physician GroupComment on above:Performed By: #### BMP, MG, BHOB, CBC #### [facility] [address] [place] [address] USAMCV (RBC) [Entitic vol]93.9 yDCjkqyp42.5-101The [facility] Physician GroupComment on above:Performed By: #### BMP, MG, BHOB, CBC #### [facility] [address] [place] [address] USAMean Corpuscular HGB Conc33.5 g/yXNspesm39.5-35.6The [facility] Physician GroupComment on above:Performed By: #### BMP, MG, BHOB, CBC #### [facility] [address] [place] [address] USAMonocytes (Bld) [#/Vol]0.6 10*3/uLNormal0.0-0.8The [facility] Physician GroupComment on above:Performed By: #### BMP, MG, BHOB, CBC #### [place] [address] USAMonocytes/100 WBC (Bld)17.04 %Normal0.00-20.00The [facility] Physician GroupComment on above:Performed By: #### BMP, MG, BHOB, CBC #### [place] [address] USAMonocytes/100 WBC (Bld)9.3 %Normal.The [facility] Physician GroupComment on above:Performed By: #### BMP, MG, BHOB, CBC #### [facility] [address] [place] [address] USANeutrophils (Bld) [#/Vol]3.9 10*3/uLNormal1.8-7.7The [facility] Physician GroupComment on above:Performed By: #### BMP, MG, BHOB, CBC #### [facility] [address] [place] [address] USANeutrophils/100 WBC (Bld)62.4 %Normal.The [facility] Physician GroupComment on above:Performed By: #### BMP, MG, BHOB, CBC #### [place] [id number] USANRBC%0.1 /100{WBC}Normal0-0.5The [facility] Comment on above:Performed By: #### BMP, MG, BHOB, CBC #### [place] [address] USAPlatelet mean volume (Bld) [Entitic vol]8.2 fLNormal 6.6-10.1The [facility] Physician GroupComment on above:Performed By: #### BMP, MG, BHOB, CBC #### [place] [address] USAPlatelets (Bld) [#/Vol]206 10*3/bTAfsjtb644-343Zrv [facility] Physician GroupComment on above:Performed By: #### BMP, MG, BHOB, CBC #### [place] [address] USARBC (Bld) [#/Vol]4.83 10*6/uLNormal3.90-5.60The [facility] Physician GroupComment on above:Performed By: #### BMP, MG, BHOB, CBC #### [place] [address] USAWBC (Bld) [#/Vol]6.2 10*3/uLNormal4.1-10.5The [facility] Physician GroupComment on above:Performed By: #### BMP, MG, BHOB, CBC #### [place] [address] USAGlucose Poct Glucometerson 00-07-1632Ioiuwsw [Mass/Vol]394 mg/dLNormalThe [facility] Physician GroupComment on above:Result Comment: Random Glucose Reference Range is dependent on time and content of last meal. Glucose of more than 200 mg/dL in a nonstressed, ambulatory subject supports the diagnosis of Diabetes Mellitus. PERFORMED BY: [place] [address] PATHOLOGIST CASEWORK MANAGER MARIA LUISA SHAH M.D.Performed By: #### GLULS #### Point of Care testing ,Lefkkpz4ZkusdeQix [facility]lands Physician GroupComment on above:Result Comment: Glu2: WILL NOTIFY DR/RN PERFORMED BY: [place] [address] PATHOLOGIST CASEWORK MANAGER MARIA LUISA SHAH M.D.Performed By: #### GLULS #### Point of Care testing ,Glucose [Mass/Vol]514 mg/dLOff scale highThe [facility] Physician GroupComment on above:Result Comment: Random Glucose Reference Range is dependent on time and content of last meal. Glucose of more than 200 mg/dL in a nonstressed, ambulatory subject supports the diagnosis of Diabetes Mellitus.Performed By: #### GLULS #### Point of Care testing ,Magnesiumon 27-68-8919Dowmkoglx [Mass/Vol]2.0 mg/dLNormal1.9-2.7The [facility] Physician GroupComment on above:Performed By: #### BMP, MG, BHOB, CBC #### [place] [address] USAVenous Blood Gason 94-82-8230BI6 [Moles/Vol]24.3 mmol/L Inrcfv22.0-29.0The [facility] Physician [facility] HospitalComment on above:Performed By: #### VBG #### Point of Care testing ,HCO3 (Bld) [Moles/Vol]23.1 mmol/HJrssmu07.0-29.0The [facility] Physician [facility] Comment on above:Performed By: #### VBG #### Point of Care testing ,Respiratory CriticalNormOrlando VA Medical Center Physician [facility] HospitalComment on above:Result Comment: Critical Value called on: 12/22/2024 at 17:51 PERFORMED BY: [place] [address] PATHOLOGIST CASEWORK MANAGER MARIA LUISA SHAH M.D.Performed By: #### VBG #### Point of Care testing ,VBG Base Excess-1.8 mmol/LNormal-3.0-3.0The [facility] Physician GroupComment on above:Performed By: #### VBG #### Point of Care testing ,VBG Draw SiteVenousNormalThe [facility]ly [facility] Physician GroupComment on above: Performed By: #### VBG #### Point of Care testing ,VBG Frac Inspired O221 %NormalThe [facility] Physician [facility] HospitalComment on above: Performed By: #### VBG #### Point of Care testing ,VBG O2 Content6.8 mmol/LNormal6.6-9.7The [facility] Physician GroupComment on above:Performed By: #### VBG #### Point of Care testing ,VBG Oxygen Teucebwhpu75.3 %Low73.0-76.0The [facility] Physician [facility] HospitalComment on above:Performed By: #### VBG #### Point of Care testing ,VBG KOC410.8 mm[Hg]Jplewd84.0-50.0The [facility] Physician [facility] HospitalComment on above:Performed By: #### VBG #### Point of Care testing ,VBG PH Venous PH7.54Jjfyyo0.32-7.43The [facility] Physician [facility] HospitalComment on above:Performed By: #### VBG #### Point of Care testing ,VBG PO232.0 mm[Hg]Low35.0-45.0The [facility] Physician [facility] HospitalComment on above: Performed By: #### VBG #### Point of Care testing ,CBC w/ Auto Diffon 08-83-4590Uadetgrov/100 WBC (Bld)0.9 %Normal0.0-2.0[facility] HospitalComment on above:Performed By: #### [id number] #### [facility] [address], [place] [address]Squdlpvxa/Leukocytes Auto (Bld) [Pure # fraction]0.1 E9/LNormal 0.0-0.2FUniversity Hospitals Portage Medical CenterComment on above:Performed By: #### [id number] #### [facility] [address] [place] [address]Lpvlgtzpqfu (Bld) [#/Vol]0.3 E9/LNormal0.0-0.5FUniversity Hospitals Portage Medical CenterComment on above:Performed By: #### [id number] #### [facility] [address], [place] [address]Vopoxdwiezd/100 WBC (Bld)4.2 %Normal0.0-8.0[facility] HospitalComment on above:Performed By: #### [id number] #### [facility] [address], [place] [address]Zebnswypsfj distribution width (RBC) [Ratio]14.0 %Normal 10.9-14.2FUniversity Hospitals Portage Medical CenterComment on above:Performed By: #### [id number] #### [facility] [address] [place] [address]Hsetlwyvrw (Bld) [Volume fraction]40.7 %Wjsgrs59.7-49.0[facility] HospitalComment on above:Performed By: #### [id number] #### [facility] [address] [place] [address]Owbhftxjvx (Bld) [Mass/Vol]14.3 g/tAAtbhcz43.5-17.5FUniversity Hospitals Portage Medical CenterComment on above:Performed By: #### [id number] #### [facility] [address] [place] [address]Lpbpxgdjaby (Bld) [#/Vol]1.9 E9/LNormal1.0-4.0[facility] HospitalComment on above:Performed By: #### [id number] #### [facility] [address], [place] [address]Mrhrcexqmpw/100 WBC (Bld)26.6 %Pimvjg53.0-50.0[facility] HospitalComment on above:Performed By: #### [id number] #### [facility] [address], [place] [address]EGI (RBC) [Entitic mass]31.3 zvBsmjss00.0-34.0[facility] HospitalComment on above:Performed By: #### [id number] #### [facility] [address] [place] [address]POUS (RBC) [Mass/Vol]35.1 g/vEWqxbxt38.4-36.0[facility] HospitalComment on above:Performed By: #### [id number] #### [facility] [address] [place] [address]MWI (RBC) [Entitic vol]89.2 fCAqtrus39.0-100.0[facility] HospitalComment on above:Performed By: #### [id number] #### [facility] [address], [place] [address]Jwwupblsx (Bld) [#/Vol]0.5 E9/LNormal0.2-1.0[facility] HospitalComment on above:Performed By: #### [id number] #### [facility] [address] [place] [address]Ihkpopuotca (Bld) [#/Vol]4.4 E9/LNormal2.0-7.5FUniversity Hospitals Portage Medical CenterComment on above:Performed By: #### [id number] #### [facility] [address] [place] [address]Yghjntworlq/100 WBC (Bld)61.3 %Zwyhap17.0-75.0[facility] HospitalComment on above:Performed By: #### [id number] #### [facility] [address] [place] [address]Tmywcmqo mean volume (Bld) [Entitic vol]8.2 fLNormal6.4-10.8 [facility] HospitalComment on above:Performed By: #### [id number] #### [facility] [address], [place] [address]Tabjjyvwd (Bld) [#/Vol]205.0 E9/JWavwey913.0-500.0[facility] HospitalComment on above:Performed By: #### [id number] #### [facility] [address] [place] [address]QNG (Bld) [#/Vol]4.6 E12/LNormal4.3-5.9[facility] HospitalComment on above:Performed By: #### [id number] #### [facility] [address], [place] [address]TRE corrected for nucl RBC Auto (Bld) [#/Vol]7.1 E9/LNormal 4.0-11.0[facility] HospitalComment on above:Performed By: #### [id number] #### [facility] [address], [place] [address]MSRUESDBINkwnedn By: Lab Barbier on 27-23-1039Oqhcvno [Mass/Vol]330 mg/qHYexf80 - 99 mg/dLDUNCAN REGIONAL [facility] [place] POC SubsectionComment on above:Result Comment: Cleaned MeterPOC UsernamePROY, MADISONInvalid Interpretation CodeFTMC POC SubsectionSodium [Moles/Vol]735222540397 mmol/LInvalid Interpretation Code [facility] POC SubsectionSodium [Moles/Vol]466503647 mmol/LInvalid Interpretation Code [facility] POC SubsectionGlucose [Mass/Vol]483 mg/dLInvalid Interpretation Code55 - 99 mg/dLMC POC SubsectionComment on above:Result Comment: Cleaned MeterPOC UsernamePROY, MADISONInvalid Interpretation CodeFTMC POC SubsectionSodium [Moles/Vol]210051669 mmol/LInvalid Interpretation CodeFTMC POC SubsectionSodium [Moles/Vol]080438417441 mmol/LInvalid Interpretation CodeFTMC POC Subsection Glucose [Mass/Vol]361 mg/bBCabb34 - 99 mg/dLFTMC POC SubsectionComment on above: Result Comment: Cleaned MeterPOC UsernamePROY, MADISONInvalid Interpretation CodeFTMC POC SubsectionSodium [Moles/Vol]412517593 mmol/LInvalid Interpretation CodeFTMC POC SubsectionSodium [Moles/Vol]049816015973 mmol/LInvalid Interpretation CodeFTMC POC SubsectionCHEMISTRYOrdered By: SYSTEM SYSTEM on 02-91-8970Lvwktqi [Mass/Vol]2.9 g/dLLow3.3 - 5.0 gm/dLRemisol Chem Albumin/Globulin [Mass ratio]1.1 {ratio}Normal1.1 - 2.2Remisol ChemALP [Catalytic activity/Vol]92 [iU]/nKkpssk63 - 98 Int._Unit/LRemisol ChemALT No additional P-5'-P [Catalytic activity/Vol]16 [iU]/dNormal6 - 46 Int._Unit/L Remisol ChemAnion gap [Moles/Vol]11 mmol/LNormal6 - 16 mEq/LRemisol ChemAST [Catalytic activity/Vol]16 [iU]/dNormal5 - 43 Int._Unit/LRemisol ChemBilirubin [Mass/Vol]0.6 mg/dLNormal0.0 - 1.1 mg/dLRemisol ChemCalcium [Mass/Vol]8.1 mg/dL Low8.9 - 11.1 mg/dLRemisol ChemChloride [Moles/Vol]102 mmol/BEjkway097 - 111 mmol/LRemisol ChemCO2 [Moles/Vol]25 mmol/FQncyob83 - 31 mmol/LRemisol Chem Creatinine [Mass/Vol]1.7 mg/dLHigh0.5 - 1.3 mg/dLRemisol DmcsxTZH19 mL/min/1.73 m2Low>=59mL/min/1.73 y0Snmkbut ChemGlobulin (S) [Mass/Vol]2.7 g/dLNormal1.4 - 4.0 gm/dLRemisol ChemGlucose [Mass/Vol]307 mg/zDIipm86 - 199 mg/dLRemisol Chem Potassium [Moles/Vol]4.0 mmol/LNormal3.5 - 5.3 mmol/LRemisol ChemProtein [Mass/Vol]5.6 g/dLLow6.0 - 7.8 gm/dLRemisol ChemSodium [Moles/Vol]134 mmol/LLow 135 - 145 mmol/LRemisol ChemUrea nitrogen [Mass/Vol]46 mg/dLHigh5 - 21 mg/dL Remisol ChemUrea nitrogen/Creatinine [Mass ratio]27 mg/suLnyx96 - 20Remisol Chem CMPon 47-12-0388Kmwdlbp [Mass/Vol]2.9 g/dLLow3.3-5.0[facility] Comment on above:Performed By: #### [id number] #### [facility] [address], [place] [address]Qomjbyu/Globulin (S) [Mass conc ratio]1.5Xzdaun1.1-2.2FUniversity Hospitals Portage Medical CenterComment on above:Performed By: #### [id number] #### [facility] [address], [place] [address]RAD [Catalytic activity/Vol]92 Int._Unit/BIijiaj91-42SjjdlcCommunity Memorial HospitalComment on above:Performed By: #### [id number] #### [facility] [address], [place] [address]TOI No additional P-5'-P [Catalytic activity/Vol]16 Int._Unit/L Normal6-46[facility] HospitalComment on above:Performed By: #### [id number] #### [facility] [address], [place] [address]Sdgcp gap [Moles/Vol]11 mmol/LNormal6-16[facility] HospitalComment on above:Performed By: #### [id number] #### [facility] [address], [place] [address]HDV [Catalytic activity/Vol]16 Int._Unit/LNormal5-43[facility] HospitalComment on above:Performed By: #### [id number] #### [facility] [address], [place] [address]Ymxzakxqq [Mass/Vol]0.6 mg/dLNormal0.0-1.1FUniversity Hospitals Portage Medical CenterComment on above:Performed By: #### [id number] #### [facility] [address], [place] [address]Hqacszj [Mass/Vol]8.1 mg/dLLow8.9-11.1FUniversity Hospitals Portage Medical CenterComment on above:Performed By: #### [id number] #### [facility] [address], [place] [address]Zrrpsnia [Moles/Vol]102 mmol/XQdaalh059-619UieblcCommunity Memorial HospitalComment on above:Performed By: #### [id number] #### [facility] [address], [place] [address]ZK2 [Moles/Vol]25 mmol/YKefaeq88-89VvpbzrCommunity Memorial Hospital Comment on above:Performed By: #### [id number] #### [facility] [address], [place] [address]Haucweefce [Mass/Vol]1.7 mg/dLHigh0.5-1.3FUniversity Hospitals Portage Medical CenterComment on above:Performed By: #### [id number] #### [facility] [address], [place] [address]Cczchsfq (S) [Mass/Vol]2.7 g/dLNormal1.4-4.0[facility] HospitalComment on above:Performed By: #### [id number] #### [facility] [address], [place] [address]Xedldfo [Mass/Vol]307 mg/rSXbbf95-428XdkwyfCommunity Memorial HospitalComment on above:Performed By: #### [id number] #### [facility] [address], [place] [address]Wknrdiitb [Moles/Vol]4.0 mmol/LNormal3.5-5.3FUniversity Hospitals Portage Medical CenterComment on above:Performed By: #### [id number] #### [facility] [address], [place] [address]Kgpqucx [Mass/Vol]5.6 g/dLLow6.0-7.8[facility] Comment on above:Performed By: #### [id number] #### [facility] [address], [place] [address]Gdsuzm [Moles/Vol]134 mmol/ISaf052-045IgtoxtCommunity Memorial HospitalComment on above:Performed By: #### [id number] #### [facility] [address], [place] [address]Wzkw nitrogen [Mass/Vol]46 mg/dLHigh5-21[facility] HospitalComment on above:Performed By: #### [id number] #### [facility] [address], [place] [address]Xndm nitrogen/Creatinine [Mass ratio]27 No NrxgqLeor33-45HlcgaaCommunity Memorial HospitalComment on above:Performed By: #### [id number] #### [facility] [address], [place] [address]Xgocqkatr Glucose POCon 11-01-0939Bnuhphy [Mass/Vol]330 mg/dL Fwsa90-16JsutvhCommunity Memorial HospitalComment on above:Result Comment: Cleaned MeterPerformed By: #### [id number] #### [facility] [address], [place] [address]Bpyerra [Mass/Vol]483 mg/qZMzsochbu35-59OkigulCommunity Memorial HospitalComment on above:Result Comment: Cleaned MeterPerformed By: #### [id number] #### [facility] [address], [place] [address]Xwywusj [Mass/Vol]361 mg/lQCbld03-93LwarltCommunity Memorial Hospital Comment on above:Result Comment: Cleaned MeterPerformed By: #### [id number] #### [facility] [address], [place] [address]Ekrzwcs [Mass/Vol]274 mg/aHMujo16-85NfkmmsCommunity Memorial Hospital Comment on above:Result Comment: Notified RN/MDPerformed By: #### [id number] #### [facility] [address], [place] [address]Vlzdhuj [Mass/Vol]246 mg/qGAbcm82-02TtiuoeCommunity Memorial Hospital Comment on above:Result Comment: Notified RN/MDPerformed By: #### [id number] #### [facility] [address], [place] [address]Uvjybug [Mass/Vol]95 mg/tDMnnkzm33-90QweesrCommunity Memorial HospitalComment on above:Result Comment: Notified RN/MDPerformed By: #### [id number] #### [facility] [address] [facility], [place] [address]Jzyrxhh [Mass/Vol]91 mg/aLDpnkgm31-53Mnwnnr Johns Hopkins HospitalComment on above:Performed By: #### [id number] #### [facility] [address] [place], [place] [address]KG Note-Physicianon [id number] Note-PhysicianED Note-Physician Basic Information Time Seen: Paddy Betancourt [...] signed leave AMA. Reports that he has beennot been taking his insulin last 2 to 3 days because he cannot find his supplies. He reports that he would stay for admission today. He reports also having spasms of his left leg. Reports he was unable to fill his medications yesterday. Denies any other symptoms. No nausea or vomiting. States he david type II diabetic. Denies any injury to his leg. Review of Systems No other aggravating or relieving factors no other associated symptoms no other prior treatments orcomplaints. Family: Reviewed and noncontributory Social: lives at [...] pulses are intact bilaterally. postsurgical changes of leftfoot. GI: No obvious distention Neurological: A&O. moves all extremities equal strength and symmetry Psychiatric: Cooperative and appropriate Medical Decision Making 64-year-old male reports emerged department with concerns of elevated blood sugars. Reports that hewas seen here yesterday, but decided to leave [...] His blood sugar did come back nearly at900. No other acute abnormality except very mild [...] BID, # 20 cap(s), Refills(s) 0, Pharmacy: [facility] #[id number], 183, cm, 06/23/24 13:45:00 EST, Height/Length Dosing, [...] mL, Soln-IV, IV, Once, Stop date 12/20/24 15:14:00EDT, STAT, Start date 12/20/24 15:14:00 EDT, Infuse over 61, minute(s) Sodium Chloride 0.9% intravenous solution, 1,000 mL, Soln-IV, IV, Once, Stop date 12/20/24 13:48:00EDT, STAT, Start date 12/20/24 13:48:00 EDT, Infuse [...] 1000 mL, IV Dispos (more content not included)...[facility] CampusComment on above:Result Comment: Electronically Signed By: Paddy Betancourt PA-C\.br\Date and Time Signed: 12/20/2520:48 EDT\.br\Electronically Co-Signed By: Nicole Myers DO\.br\Date and Time Co-Signed: 12/21/24 07:09 EDTED Note-PhysicianED Note-Physician Basic Information Time Seen: Jesus Grijalva [...] no other specific complaint. Denies any fever chillsnausea or vomiting. Denies any chest pain or [...] Understands risk and benefits. He is to follow- up with his PCP. Patient was encouraged to [...] day(s), # 9 tab(s), Refills(s) 0, Pharmacy: [facility] #[id number], 183, cm, 12/19/24 10:26:00 EDT, Height/Length Dosing, 110.8, kg, 12/19/24 10:26:00 EDT, Weight Dosing Sodium Chloride 0.9% intravenous solution, 1,000 mL, IV, Stop date 12/19/24 12:55:00 EDT, Start date 12/19/24 12:55:00 EDT Sodium Chloride 0.9% intravenous solution, 1,000 mL, Soln-IV, IV, Once, Stop date 12/19/24 11:00:00EDT, STAT, Start date 12/19/24 11:00:00 EDT, Infuse over 61, minute(s) Basic Metabolic Panel Beta-hydroxybutyrate CBC w/ Auto Diff ED Cardiac Monitoring eGFR Extra Blue Tube Extra SST Tube Hepatic Function Panel Routine Capillary Glucose POC XR Chest Single View Medications Administered Given NS 1000 ml Bolus, 1000 mL, IV [id number] [F], 1000 mL, IV Valium 5 mg Tab, 5 mg, Oral Disposition Plan Patient Discharge Condition Disposition: Discharged home Condition: Improved and stable Counseled: Patient and/or family were counseled to workup, results, treatment plan and follow-up recommendations Discharge Prescription List Prescriptions Robaxin-750 oral tablet, 750 mg= 1 tab(s), Oral, TID Follow-up With When Contact Information Mounika Logangles In 3 days 12/22/[address] [place] [address]- Business (1) Additional Instructions: Patient Education Hyperglycemia Attestation I performed a substantive part of the MDM during the patient???s E/M visit. I personally made or approved the documented management plan and acknowledge its r (more content not included)...[facility] CampusComment on above:Result Comment: Electronically Signed By: Jesus Grijalva PA-C\.br\Date and Time Signed: 12/19/2517:08 EDT\.br\Electronically Co-Signed By: Corky Luo MD\.br\Date and Time Co-Signed: 12/21/24 02:21 EDTHEMATOLOGYOrdered By: SYSTEM SYSTEM on 58-54-2139Uupmgjcdx/100 WBC (Bld)0.9 %Normal0.0 - 2.0 %Remisol Heme Basophils/Leukocytes Auto (Bld) [Pure # fraction]0.1 E9/LNormal0.0 - 0.2 E9/L Remisol HemeEosinophils (Bld) [#/Vol]0.3 E9/LNormal0.0 - 0.5 E9/LRemisol Heme Eosinophils/100 WBC (Bld)4.2 %Normal0.0 - 8.0 %Remisol HemeErythrocyte distribution width (RBC) [Ratio]14.0 %Ndmcee28.9 - 14.2 %Remisol HemeHematocrit (Bld) [Volume fraction]40.7 %Pucszh79.7 - 49.0 %Remisol HemeHemoglobin (Bld) [Mass/Vol]14.3 g/nKAfohww52.5 - 17.5 gm/dLRemisol HemeLymphocytes (Bld) [#/Vol] 1.9 E9/LNormal1.0 - 4.0 E9/LRemisol HemeLymphocytes/100 WBC (Bld)26.6 %Normal 14.0 - 50.0 %Remisol HemeMCH (RBC) [Entitic mass]31.3 hfCdnnfv30.0 - 34.0 pg Remisol HemeMCHC (RBC) [Mass/Vol]35.1 g/fPEjxrvo69.4 - 36.0 gm/dLRemisol HemeMCV (RBC) [Entitic vol]89.2 xKKnszxz03.0 - 100.0 fLRemisol HemeMonocytes (Bld) [#/Vol]0.5 E9/LNormal0.2 - 1.0 E9/LRemisol HemeMonocytes/100 WBC (Bld)7.0 % Normal4.0 - 14.0 %Remisol HemeNeutrophils (Bld) [#/Vol]4.4 E9/LNormal2.0 - 7.5 E9/LRemisol HemeNeutrophils/100 WBC (Bld)61.3 %Owwpwm18.0 - 75.0 %Remisol Heme Platelet mean volume (Bld) [Entitic vol]8.2 fLNormal6.4 - 10.8 fLRemisol Heme Platelets (Bld) [#/Vol]205.0 E9/FRidqpx113.0 - 500.0 E9/LRemisol HemeRBC (Bld) [#/Vol]4.6 E12/LNormal4.3 - 5.9 E12/LRemisol HemeWBC corrected for nucl RBC Auto (Bld) [#/Vol]7.1 E9/LNormal4.0 - 11.0 E9/LRemisol HemeInpatient Patient Summary on 63-44-4142Vtmemfhxa Patient SummaryInpatient Patient Summary NICOLE LORA :1960 Visit Date:12/20/2024 Inpatient Discharge Instructions Your [...] Discharge Instructions Follow up closely with your healthcare social worker. Return to ER if symptoms return or worsen. Do not start tradjenta prescribed by your healthcare social worker until you speak ask him it if is safe with your insulin. Can cause lows together. New Follow Up Appointments after Discharge Follow Up with KAYLA SWEENEY When: Comments: Follow as scheduled in December 2024 Where: [address], [address] [place] [address]- Business (1) Follow Up with Mounika Brooke When: Within 7 to 10 days Comments: Call for followup appointment Where: [address] [place] [address]- Business (1) Medications What How Much When Why Instructions Next Dose New losartan (losartan 50 mg Tab) 1 Tablets By Mouth Every day Hypertension Refills: 1 Pickup at [facility] #[id number] 12/22 @ 0900am [facility] [place] (Glucose Kit) See instructions Hyperglycemia Glucose meter. Include autolet, matching test strips, lancets, & alcohol wipes, #100 or as allowed by insurance; DX: E11.9 [id number] New Mis Prescription (Pen Needle 31G x 6mm) See instructions Hyperglycemia Refills: 1 Pen Needle 31G x 6mm [id number] Changed insulin regular (HumuLIN R KwikPen (Concentrated) human recombinant 500 units/ mL subcutaneous solution) See instructions Diabetes mellitus with neuropathy inject 40 units under the skin in the morning, 40 in the evening and 20 at bedtime. Pickup at [facility] #[id number] 12/21 @ 0800pm Unchanged gabapentin (gabapentin 600 mg Tab) 1 Tablets By Mouth 3 times a day resume Unchanged methocarbamol (Robaxin-750 oral tablet) 1 Tablets By Mouth 3 times a day Duration: 3 Daysresume Pharmacy Information [facility] #[id number]: [address] [place], [place] [id number] [phone] Test Results CBC BMP WBC: 7.1 E9/L [...] 25 mmol/L (12/21/24 05:04: (more content not included)...NormalCommunity Memorial HospitaleGFRon 70-98-5787nHCP14 mL/min/1.73 m2Low>=59Community Memorial HospitalComment on above:Performed By: #### [id number] #### [facility] [address], [place] [address]QTXhr 90-30-9508Cnhnvch [Mass/Vol]792 mg/fGXxmzfxvm26-228IgcywoCommunity Memorial HospitalComment on above:Result Comment: Critical Result S_GLU:792 Called to and read back by: PADDY BETANCOURT at: 12/20/2024 15:01:20 by:[id number] Critical Result Verified by Repeat AnalysisPerformed By: #### [id number] #### [facility] [address], [place] [address]Wwsml gap [Moles/Vol]16 mmol/LNormal6-16Community Memorial HospitalComment on above:Performed By: #### [id number] #### [facility] [address], [place] [address]Oyjgmpnooi [Mass/Vol]1.9 mg/dLHigh0.5-1.3Fisher Johns Hopkins HospitalComment on above:Performed By: #### [id number] #### [facility] [address], [place] [address]Qncj nitrogen [Mass/Vol]52 mg/dLHigh5-21Community Memorial HospitalComment on above:Performed By: #### [id number] #### [facility] [address], [place] [address]Dcsk nitrogen/Creatinine [Mass ratio]27 No BzshcQgxc17-06KuiqkwCommunity Memorial HospitalComment on above:Performed By: #### [id number] #### [facility] [address], [place] [address]Fbdckxy [Mass/Vol]8.8 mg/dLLow8.9-11.1Fisher [facility] HospitalComment on above:Performed By: #### [id number] #### [facility] [address], [place] [address]Eujybbds [Moles/Vol]88 mmol/AUpa706-515UqzvveCommunity Memorial HospitalComment on above:Performed By: #### [id number] #### [facility] [address], [place] [address]BU8 [Moles/Vol]24 mmol/JYdljvm97-03JujqzrCommunity Memorial Hospital Comment on above:Performed By: #### [id number] #### [facility] [address], [place] [address]Cwmrkacuf [Moles/Vol]5.0 mmol/LNormal3.5-5.3Fisher [facility] HospitalComment on above:Performed By: #### [id number] #### [facility] [address], [place] [address]Rrsykx [Moles/Vol]123 mmol/MDve449-233WcojlfCommunity Memorial HospitalComment on above:Performed By: #### [id number] #### [facility] [address], [place] [address]OVGQeq 56-30-7954Fvct HB Qnt2.86 mmol/LHigh0.02-0.27Community Memorial HospitalComment on above:Performed By: #### [id number] #### [facility] [address], [place] [address]Pjilc Gas Art, with Lytes, Gluc, [place] 5a/A Ratio Art 63.60 %Normal>=0.80Community Memorial HospitalComment on above:Performed By: #### [id number] #### [facility] [address], [place] [address]NmGJ0 Art36.1 mmHgHigh5.0-15.0[facility] Comment on above:Performed By: #### [id number] #### [facility] [address], [place] [address]Yoejqw TestPositiveNormalCommunity Memorial HospitalComment on above:Performed By: #### [id number] #### [facility] [address], [place] [address]Orvl Excess Arterial-2.8 mmol/LLow>=2.8Community Memorial HospitalComment on above:Performed By: #### [id number] #### [facility] [address], [place] [address]oYc5+ Art4.78 mg/dLNormal4.40-5.30[facility] Comment on above:Performed By: #### [id number] #### [facility] [address], [place] [address]nIs- Art92.0 mmol/TTpu825.0-111.0[facility] Comment on above:Performed By: #### [id number] #### [facility] [address], [place] [address]rJcm Kmd770 mg/nYXrprwvkd71-94QprconCommunity Memorial Hospital Comment on above:Result Comment: Results Called To NICOLE MYERS By ASHLEY TUBBS12/20/2024 14:12:32 EDT And Read Back For Confirmation On _.Performed By: #### [id number] #### [facility] [address], [place] [address]yE+ Art4.5 mmol/LNormal3.5-5.3FUniversity Hospitals Portage Medical Center Comment on above:Performed By: #### [id number] #### [facility] [address], [place] [address]kWrk Art.8 mmol/LNormal.5-2.2Fisher [facility] Hopkins HospitalComment on above:Performed By: #### [id number] #### [facility] [address] [place] [address]mYa+ Aqf258.0 mmol/XSxb699.0-145.0[facility] Comment on above:Performed By: #### [id number] #### [facility] [address], [place] [address]Aefjf byDCCInvalid Interpretation [facility] HospitalComment on above:Performed By: #### [id number] #### [facility] [address] [place] [address]RYDKt Art2.1 %Normal1.5-4.9Community Memorial HospitalComment on above:Result Comment: Reference range Nonsmoker <1.5% Smoker <5.0% Heavy Smoker <9.0%Performed By: #### [id number] #### [facility] [address] [place] [address]LYP5 YQ99Wqmhwdd Interpretation [facility] Comment on above:Performed By: #### [id number] #### [facility] [address] [place] [address]MN3Ln Art91.9 %Low93.0-100.0Community Memorial HospitalComment on above:Performed By: #### [id number] #### [facility] [address], [place] [address]HZS8 (Bld) [Moles/Vol]22.0 mmol/ACmkjlj91.0-26.0Community Memorial HospitalComment on above:Performed By: #### [id number] #### [facility] [address] [place] [address]Vakfduxrfy (Bld) [Mass/Vol]15.4 g/kVMbmdfc48.0-17.0Community Memorial HospitalComment on above:Performed By: #### [id number] #### [facility] [address], [place] [address]Bqjfnt saturation in Blood93.9 %Low95.0-100.0Community Memorial HospitalComment on above:Performed By: #### [id number] #### [facility] [address], [place] [address]L CO2 Sqyrfrlq83.0 rgAaAezwsa77.0-45.0Community Memorial HospitalComment on above:Performed By: #### [id number] #### [facility] [address], [place] [address]I O2 Fpqihrzj60.1 csZnKrw22.0-100.0[facility] Comment on above:Performed By: #### [id number] #### [facility] [address], [place] [address]xN Arterial7.832Zvmorc9.350-7.450[facility] Comment on above:Performed By: #### [id number] #### [facility] [address], [place] [address]Ifekux SiteR RadialNormalCommunity Memorial HospitalComment on above:Performed By: #### [id number] #### [facility] [address], [place] [address]Cnhuxi TypeArterial DrawNormalCommunity Memorial Hospital Comment on above:Performed By: #### [id number] #### [facility] [address], [place] [address]CWA w/ Auto Diffon 73-88-9981Sarxxewkk/100 WBC (Bld)1.1 %Normal 0.0-2.0Community Memorial HospitalComment on above:Performed By: #### [id number] #### [facility] [address], [place] [address]Uvnpkmhma/Leukocytes Auto (Bld) [Pure # fraction]0.1 E9/LNormal 0.0-0.2Fisher [facility] Hopkins HospitalComment on above:Performed By: #### [id number] #### [facility] [address] [place] [address]Umqnqqantik (Bld) [#/Vol]0.2 E9/LNormal0.0-0.5FUniversity Hospitals Portage Medical CenterComment on above:Performed By: #### [id number] #### [facility] [address] [place] [address]Dxjiroyyhvq/100 WBC (Bld)3.8 %Normal0.0-8.0Community Memorial HospitalComment on above:Performed By: #### [id number] #### [facility] [address] [place] [address]Bziciexbiuw distribution width (RBC) [Ratio]13.6 %Normal 10.9-14.2FUniversity Hospitals Portage Medical CenterComment on above:Performed By: #### [id number] #### [facility] [address] [place] [address]Rzqiqaxuej (Bld) [Volume fraction]46.1 %Yvsktu81.7-49.0Community Memorial HospitalComment on above:Performed By: #### [id number] #### [facility] [address] [place] [address]Gvejbpncaq (Bld) [Mass/Vol]15.6 g/xVKqvwno40.5-17.5FUniversity Hospitals Portage Medical CenterComment on above:Performed By: #### [id number] #### [facility] [address] [place] [address]Kaasfcbalyx (Bld) [#/Vol]1.3 E9/LNormal1.0-4.0Community Memorial HospitalComment on above:Performed By: #### [id number] #### [facility] [address] [place] [address]Jtoiwjzoyka/100 WBC (Bld)21.6 %Tdsqvm54.0-50.0Community Memorial HospitalComment on above:Performed By: #### [id number] #### [facility] [address], [place] [address]NRE (RBC) [Entitic mass]30.9 ayYvktjk34.0-34.0Community Memorial HospitalComment on above:Performed By: #### [id number] #### [facility] [address] [place] [address]XLSR (RBC) [Mass/Vol]33.9 g/iBPokgay56.4-36.0Community Memorial HospitalComment on above:Performed By: #### [id number] #### [facility] [address] [place] [address]HJQ (RBC) [Entitic vol]91.3 iPNuphuf70.0-100.0Community Memorial HospitalComment on above:Performed By: #### [id number] #### [facility] [address] [place] [address]Eqffdqdzk (Bld) [#/Vol]0.6 E9/LNormal0.2-1.0Community Memorial HospitalComment on above:Performed By: #### [id number] #### [facility] [address] [place] [address]Ybyaneuwyjh (Bld) [#/Vol]4.0 E9/LNormal2.0-7.5FUniversity Hospitals Portage Medical CenterComment on above:Performed By: #### [id number] #### [facility] [address] [place] [address]Pwwrqviwdih/100 WBC (Bld)64.6 %Rqtwba03.0-75.0Community Memorial HospitalComment on above:Performed By: #### [id number] #### [facility] [address] [place] [address]Rpbcztsv mean volume (Bld) [Entitic vol]8.0 fLNormal6.4-10.8 Community Memorial HospitalComment on above:Performed By: #### [id number] #### [facility] [address] [place] [address]Nofrrtuly (Bld) [#/Vol]190.0 E9/MQexfay041.0-500.0Community Memorial HospitalComment on above:Performed By: #### [id number] #### [facility] [address], [place] [address]XLH (Bld) [#/Vol]5.1 E12/LNormal4.3-5.9Community Memorial HospitalComment on above:Performed By: #### [id number] #### [facility] [address], [place] [address]YFV corrected for nucl RBC Auto (Bld) [#/Vol]6.2 E9/LNormal 4.0-11.0Community Memorial HospitalComment on above:Performed By: #### [id number] #### [facility] [address], [place] [address]AYHRIIYYAWxnzptv By: SYSTEM SYSTEM on 94-90-1048Xiesglh [Mass/Vol]3.5 g/dLNormal3.3 - 5.0 gm/dLRemisol ChemAlbumin/Globulin [Mass ratio] 1.1 {ratio}Normal1.1 - 2.2Remisol ChemALP [Catalytic activity/Vol]156 [iU]/dHigh 21 - 98 Int._Unit/LRemisol ChemALT No additional P-5'-P [Catalytic activity/Vol] 22 [iU]/dNormal6 - 46 Int._Unit/LRemisol ChemAnion gap [Moles/Vol]16 mmol/L Normal6 - 16 mEq/LRemisol ChemAST [Catalytic activity/Vol]18 [iU]/dNormal5 - 43 Int._Unit/LRemisol ChemBeta HB Qnt2.86 mmol/LHigh0.02 - 0.27 mmol/LRemisol Chem Bilirubin [Mass/Vol]0.9 mg/dLNormal0.0 - 1.1 mg/dLRemisol ChemBilirubin.direct [Mass/Vol]0.1 mg/dLNormal0.0 - 0.4 mg/dLRemisol ChemBilirubin.indirect [Mass or moles/Vol]0.8 mg/dLNormal0.1 - 0.9 mg/dLRemisol ChemCalcium [Mass/Vol]8.8 mg/dL Low8.9 - 11.1 mg/dLRemisol ChemChloride [Moles/Vol]88 mmol/QPdg982 - 111 mmol/L Remisol ChemCO2 [Moles/Vol]24 mmol/ZFicfsr96 - 31 mmol/LRemisol ChemCreatinine [Mass/Vol]1.9 mg/dLHigh0.5 - 1.3 mg/dLRemisol CrsggRIF20 mL/min/1.73 m2Low >=59mL/min/1.73 l3Ohtahwv ChemGlobulin (S) [Mass/Vol]3.3 g/dLNormal1.4 - 4.0 gm/dLRemisol ChemGlucose [Mass/Vol]792 mg/dLInvalid Interpretation Code55 - 199 mg/dLRemisol ChemComment on above:Result Comment: Critical Result S_GLU:792 Called to and read back by: PADDY BETANCOURT at: 12/20/2024 15:01:20 by:[id number] Critical Result Verified by Repeat AnalysisPotassium [Moles/Vol]5.0 mmol/LNormal 3.5 - 5.3 mmol/LRemisol ChemProtein [Mass/Vol]6.8 g/dLNormal6.0 - 7.8 gm/dL Remisol ChemSodium [Moles/Vol]123 mmol/VIhp916 - 145 mmol/LRemisol ChemUrea nitrogen [Mass/Vol]52 mg/dLHigh5 - 21 mg/dLRemisol ChemUrea nitrogen/Creatinine [Mass ratio]27 mg/vhFwrd28 - 20Remisol ChemCapillary Glucose POCon 12-20-2024 Glucose [Mass/Vol]180 mg/zCXocp55-43WzolcrCommunity Memorial HospitalComment on above: Result Comment: Notified RN/KENROYerformed By: #### [id number] #### [facility] [address], [place] [address]Woywvmg [Mass/Vol]478 mg/iPUgtefntp13-74HwzvayCommunity Memorial HospitalComment on above:Result Comment: Notified RN/MDPerformed By: #### [id number] #### [facility] [address] [place] [address]Rnhsjhw [Mass/Vol]476 mg/lIBspmqzws54-05TsmiuxCommunity Memorial HospitalComment on above:Result Comment: Notified RN/MDPerformed By: #### [id number] #### [facility] [address] [place] [address]Jaemfhe [Mass/Vol]mg/rHEwoijqgf95-22PxcwenCommunity Memorial Hospital Comment on above:Result Comment: Notified RN/MDPerformed By: #### [id number] #### [facility] [address] [place] [address]Fzuehgz [Mass/Vol]mg/uMZodsvnyi24-43YcylgyCommunity Memorial Hospital Comment on above:Result Comment: Notified RN/MDPerformed By: #### [id number] #### [facility] [address] [place] [address]Sxuvegz [Mass/Vol]mg/kXRqkehguj55-59AgsnltCommunity Memorial Hospital Comment on above:Performed By: #### [id number] #### [facility] [address] [place] [address]RW Clinical Summaryon [id number] Clinical SummaryED Clinical Summary [address] [address] ED Clinical Summary Person Information Name: NICOLE LORA/[facility] Age: 64 Years : 1960 Sex: Male Language: Panamanian PCP: Mounika Brooke MD Marital Status: Phone: [phone] Visit Id: Visit Reason: Knee pain-swelling; Hyperglycemia; [...] 12/20/2024 18:35:13 12/20/2024 18:35:13 12/20/2024 18:35:14 ADDRESS: [address] [id number] PHYS DOC NOTES: MEDICAL INFORMATION: Prescriptions Given: [...] 5:Acquired absence of other right toe(s); 6:Hyponatremia; 7:[facility]No[facility] Patient Education Noteon [id number] Patient Education NoteED Patient Education NoteNoKindred Hospital [facility] Patient Summaryon [id number] Patient SummaryED Patient Summary [place] [id number] Patient Discharge Instructions Person Information Name: NICOLE LORA Age: 64 Years Arrival Date: 12/20/2024 13:29:49 Discharge Diagnosis: 1:Hyperglycemia; 2:Leg muscle spasm; 3:Noncompliance with medication regimen; 4:AMY (acute kidney injury); 5:Acquired absence of other right toe(s); 6:Hyponatremia; 7:Obesity Primary Care Physician: Mounika Brooke MD Provider Information Primary Provider: Nicole Myers DO [facility] Resident:Paddy Betancourt PA-C The exam and treatment you received in the Emergency Department were for an urgent problem and are not intended as complete care. It is important that you follow up with a doctor, nurse practitioner,or physician???s customer assistant for ongoing care. If your symptoms become worse or you do not improve asexpected and you are unable to reach your [...] opioids can be used to help relieve qwbsimof-pu-zpevxo pain and are often prescribed following a [...] guidance from the Food and Drug Administration (www.fda.gov/Drugs/ResourcesForYou). ??? Visit www.cdc.gov/drugoverdose to learn about the risks of opioids abuse and overdose. ??? If you believe you may be struggling with addiction, tell your health animal care worker and askfor (more content not included)...[facility] Main CampusExtra Blueon 13-77-8128Thzx Collected PlasmaYesInvalid Interpretation Providence HospitalComment on above:Performed By: #### [id number] #### [facility] [address], [place] [address]TY Blood GasesOrdered By: Primo Tubbs on 5a/A Ratio Art63.60 %Normal>=0.80%[facility] Resp Auto SSAaDO2 Art36.1 mm[Hg]High5.0 - 15.0 mmHg FT Resp Auto SSAllens TestPositive (12/20/24 2:09 PM)NormalFTMC Resp Auto SSBase Excess Arterial-2.8 mmol/LLow >=2.8mmol/LFTMC Resp Auto SScCa2+ Art4.78 mg/dLNormal4.40 - 5.30 mg/dLFTMC Resp Auto SScCl- Art92.0 mmol/YLgs072.0 - 111.0 mmol/LFTMC Resp Auto SScGlu Wzt496 mg/dLInvalid Interpretation Code55 - 99 mg/dLFTMC Resp Auto SSComment on above: Result Comment: Results Called To NICOLE MYERS By ASHLEY TUBBS12/20/2024 14:12:32 EDT And Read Back For Confirmation On _.cK+ Art4.5 mmol/LNormal3.5 - 5.3 mmol/L FT Resp Auto SScLac Art0.8 mmol/LNormal0.5 - 2.2 mmol/LFTMC Resp Auto SScNa+ Tlq058.0 mmol/VHoq418.0 - 145.0 mmol/LFTMC Resp Auto SSDrawn byDCCInvalid Interpretation CodeFT Resp Auto SSFCOHb Art2.1 %Normal1.5 - 4.9 %FT Resp Auto SSComment on above:Interpretive Data: Reference range Nonsmoker <1.5% Smoker <5.0% Heavy Smoker <9.0%FO2Hb Art91.9 %Low93.0 - 100.0 %FT Resp Auto SSHCO3 (Bld) [Moles/Vol]22.0 mmol/UOtqpqp72.0 - 26.0 mmol/LFTMC Resp Auto SSHemoglobin (Bld) [Mass/Vol]15.4 g/yHPbggyz81.0 - 17.0 gm/dLFTMC Resp Auto SSP CO2 Qufyrnje67.0 mm[Hg]Mfjsep37.0 - 45.0 mmHgFT Resp Auto SSP O2 Qcfmdwkw40.1 mm[Hg]Low80.0 - 100.0 mmHgFT Resp Auto SSpH (Bld)7.358 [pH]Normal7.350 - 7.450FT Resp Auto SSSample SiteR Radial (12/20/24 2:09 PM)NormalFTMC Resp Auto SSSample TypeArterial Draw (12/20/24 2:09 PM)NormalFTMC Resp Auto SSSodium [Moles/Vol]21 mmol/LInvalid Interpretation CodeFTMC Resp Auto SSHEMATOLOGYOrdered By: SYSTEM SYSTEM on 85-53-0893Hffadzktc/100 WBC (Bld)1.1 %Normal0.0 - 2.0 %Remisol Heme Basophils/Leukocytes Auto (Bld) [Pure # fraction]0.1 E9/LNormal0.0 - 0.2 E9/L Remisol HemeEosinophils (Bld) [#/Vol]0.2 E9/LNormal0.0 - 0.5 E9/LRemisol Heme Eosinophils/100 WBC (Bld)3.8 %Normal0.0 - 8.0 %Remisol HemeErythrocyte distribution width (RBC) [Ratio]13.6 %Iwsxjl80.9 - 14.2 %Remisol HemeHematocrit (Bld) [Volume fraction]46.1 %Zrslpy39.7 - 49.0 %Remisol HemeHemoglobin (Bld) [Mass/Vol]15.6 g/iFBzqprq52.5 - 17.5 gm/dLRemisol HemeLymphocytes (Bld) [#/Vol] 1.3 E9/LNormal1.0 - 4.0 E9/LRemisol HemeLymphocytes/100 WBC (Bld)21.6 %Normal 14.0 - 50.0 %Remisol HemeMCH (RBC) [Entitic mass]30.9 cdZttmpn35.0 - 34.0 pg Remisol HemeMCHC (RBC) [Mass/Vol]33.9 g/wDFskntt74.4 - 36.0 gm/dLRemisol HemeMCV (RBC) [Entitic vol]91.3 iSSyjyol90.0 - 100.0 fLRemisol HemeMonocytes (Bld) [#/Vol]0.6 E9/LNormal0.2 - 1.0 E9/LRemisol HemeMonocytes/100 WBC (Bld)8.9 % Normal4.0 - 14.0 %Remisol HemeNeutrophils (Bld) [#/Vol]4.0 E9/LNormal2.0 - 7.5 E9/LRemisol HemeNeutrophils/100 WBC (Bld)64.6 %Gvcgan74.0 - 75.0 %Remisol Heme Platelet mean volume (Bld) [Entitic vol]8.0 fLNormal6.4 - 10.8 fLRemisol Heme Platelets (Bld) [#/Vol]190.0 E9/NOidawt946.0 - 500.0 E9/LRemisol HemeRBC (Bld) [#/Vol]5.1 E12/LNormal4.3 - 5.9 E12/LRemisol HemeWBC corrected for nucl RBC Auto (Bld) [#/Vol]6.2 E9/LNormal4.0 - 11.0 E9/LRemisol HemeHep Func Panelon 09-06-7034Ihlaffh/Globulin (S) [Mass conc ratio]1.2Cdigjd2.1-2.2FUniversity Hospitals Portage Medical CenterComment on above:Performed By: #### [id number] #### [facility] [address], [place] [address]Vsfoujewp.indirect [Mass or moles/Vol]0.8 mg/dLNormal0.1-0.9 Community Memorial HospitalComment on above:Performed By: #### [id number] #### [facility] [address], [place] [address]Tontzbie (S) [Mass/Vol]3.3 g/dLNormal1.4-4.0Community Memorial HospitalComment on above:Performed By: #### [id number] #### [facility] [address], [place] [address]Ycveucp [Mass/Vol]3.5 g/dLNormal3.3-5.0Community Memorial HospitalComment on above:Performed By: #### [id number] #### [facility] [address], [place] [address]ZDP [Catalytic activity/Vol]156 Int._Unit/SImps35-63QvdgvhCommunity Memorial HospitalComment on above:Performed By: #### [id number] #### [facility] [address] [place] [address]HYB No additional P-5'-P [Catalytic activity/Vol]22 Int._Unit/L Normal6-46Community Memorial HospitalComment on above:Performed By: #### [id number] #### [facility] [address] [place] [address]DLH [Catalytic activity/Vol]18 Int._Unit/LNormal5-43Community Memorial HospitalComment on above:Performed By: #### [id number] #### [facility] [address] [place] [address]Djvpvbbfl [Mass/Vol]0.9 mg/dLNormal0.0-1.1FUniversity Hospitals Portage Medical CenterComment on above:Performed By: #### [id number] #### [facility] [address] [place] [address]Wuldpahja.direct [Mass/Vol]0.1 mg/dLNormal0.0-0.4FUniversity Hospitals Portage Medical CenterComment on above:Performed By: #### [id number] #### [facility] [address] [place] [address]Wyakakl [Mass/Vol]6.8 g/dLNormal6.0-7.8Community Memorial HospitalComment on above:Performed By: #### [id number] #### [facility] [address] [place] [address]Gls-Wcbgztx Noteon 47-85-2353Rce-Arrival NotePre-Arrival Note Pre-Arrival Summary Name: , [place] [facility] Current Date: 12/20/2024 13:30:15 EDT Gender: Male Date of : Age: 64 Pre-Arrival Type: EMS ETA: 12/20/2024 13:49:00 EDT Primary Care Physician: Presenting Problem: L knee pain, seen yesterday AMA? Pre-Arrival User: Kiersten Theodore RN Referring Source: Location: [place] Completion Date/Time: 12/20/2024 13:20:00 [facility] Emergency Department Pre-Hospital Report Form Vital Signs: Pre-Hospital Report: Treatment in Route: Response to Treatment: Misc. Issues:NormalCommunity Memorial HospitalUA with Cult Rflxon 12-20-2024 Bilirubin Ql (U)NegativeNormalNegativeCommunity Memorial HospitalComment on above:Performed By: #### [id number] #### [facility] [address], [place] [address]Gatamch (U)ClearNormalClearCommunity Memorial HospitalComment on above:Performed By: #### [id number] #### [facility] [address], [place] [address]Lkjoh (U)ColorlessAbnormalYellowCommunity Memorial Hospital Comment on above:Result Comment: Microscopic readings are only performed on those samples that meet specific criteria set forth by [facility].Performed By: #### [id number] #### [facility] [address], [place] [address]Elfmevk Ql (U)4+ mg/dLAbnormalNegTwin City HospitalComment on above:Performed By: #### [id number] #### [facility] [address], [place] [address]Kaowrepxhd Auto test strip (U) [Mass/Vol]NegativeNormalNegative [facility] Memorial HospitalComment on above:Performed By: #### [id number] #### [facility] [address], [place] [address]Kvdtmch Auto test strip Ql (U)TraceAbnormalNegativeCommunity Memorial HospitalComment on above:Performed By: #### [id number] #### [facility] [address] [place] [address]Mbffedcmm esterase Auto test strip Ql (U)NegativeNormalNegative [facility] HospitalComment on above:Performed By: #### [id number] #### [facility] [address] [place] [address]Bmhmp Auto Ql (U)NegativeNormalNegativeCommunity Memorial HospitalComment on above:Performed By: #### [id number] #### [facility] [address] [place] [address]Ychcozi Auto test strip Ql (U)NegativeNormalNegativeCommunity Memorial HospitalComment on above:Performed By: #### [id number] #### [facility] [address] [place] [address] 70693xU (U)5.5 [pH]Invalid Interpretation Code5.0-9.0Community Memorial HospitalComment on above:Performed By: #### [id number] #### [facility] [address] [place] [address]Vppxwcr Ql (U)1+ mg/dLAbnoalNegTwin City HospitalComment on above:Performed By: #### [id number] #### [facility] [address] [place] [address]Zvhqotjb gravity (U) [Rel density]1.018Invalid Interpretation Code1.005-1.030Community Memorial HospitalComment on above:Performed By: #### [id number] #### [facility] [address] [place] [address]Ihxudsqralnm (U) [Mass/Vol]NegativeNormalNegTwin City HospitalComment on above:Performed By: #### [id number] #### [facility] [address] [place] [address]Fafo of Urine collection methodClean CatchNoKing's Daughters Medical Center OhioComment on above:Performed By: #### [id number] #### [facility] [address] [place] [address]SCTOKXSJUGQrgeapr By: SYSTEM SYSTEM on 82-75-2902Glwvqfbxk Ql (U)NegativeNormalNegativemg/dLDUNCAN REGION[facility] [place] UA Auto SSClarity (U)Clear (12/20/24 4:37 PM)NormalClearFBEAVER COUNTY [facility] UA Auto SSColor (U)Colorless 1 *ABN* (12/20/24 4:37 PM)Invalid Interpretation CodeYellowDUNCAN REGIONAL HOSP[facility] [place] UA Auto SSComment on above:Interpretive Data: Microscopic readings are only performed on those samples that meet specific criteria set forth by [facility].Glucose Ql (U)4+ mg/dLInvalid Interpretation CodeNegativemg/dLDUNCAN REGIONAL [facility]OS[facility] [place] UA Auto SSHemoglobin Auto test strip (U) [Mass/Vol]NegativeNormalNegativemg/dLDUNCAN REGIONAL [facility] [place] UA Auto SSKetones Auto test strip Ql (U)Trace mg/dLInvalid Interpretation Code Negativemg/dLFT UA Auto SSLeukocyte esterase Auto test strip Ql (U)Negative NormalNegativeLeu/uLDUNCAN REGIONAL [facility] [place] UA Auto SSMucus Auto Ql (U)NegativeNormal Negativegraded/LPFFTMC UA Auto SSNitrite Auto test strip Ql (U)NegativeNormal Negativemg/dLFT UA Auto SSpH (U)5.5 *NA* (12/20/24 4:37 PM)Invalid Interpretation Code5.0 - 9.0[facility] [place]A Auto SSProtein Ql (U)1+ mg/dLInvalid Interpretation CodeNegativemg/dLDUNCAN REGIONAL [facility] [place] UA Auto SSSpecific gravity (U) [Rel density]1.018 *NA* (12/20/24 4:37 PM)Invalid Interpretation Code1.005 - 1.030[facility] UA Auto SS Urobilinogen (U) [Mass/Vol]NegativeNormalNegativemg/dLDUNCAN REGIONAL [facility] [place] UA Auto SSURINALYSIS Ordered By: Paddy Betancourt on [id number] Spec DescClean Catch (12/20/24 4:37 PM)NormalDUNCAN REGIONAL [facility]OSP[facility] [place] UA Auto SS xr Chest Single Viewon [id number] Chest Single View Exam Date/Time: 12/20/2024 14:35 EDT Reason for Exam: Shortness of breath (SOB) Report IMPRESSION: No significant interval change from prior. EXAMINATION/TECHNIQUE: XR Chest Single View HISTORY: Shortness of [...] Robles MD Transcribed by: KAT Technologist: Boris BARNEYCommunity Memorial HospitaleGFRon 71-45-0004xTFE68 mL/min/1.73 m2Low>=59Community Memorial HospitalComment on above:Performed By: #### [id number] #### [facility] [address] [place] [address]QAXri 06-02-3313Rfouc gap [Moles/Vol]15 mmol/LNormal6-16Community Memorial HospitalComment on above:Performed By: #### [id number] #### [facility] [address] [place] [address]Muptoqk [Mass/Vol]8.1 mg/dLLow8.9-11.1FUniversity Hospitals Portage Medical CenterComment on above:Performed By: #### [id number] #### [facility] [address] [place] [address] 226[address]Lershcse [Moles/Vol]80 mmol/GZremkhls435-205GnjacfCommunity Memorial HospitalComment on above:Result Comment: Critical Result Verified by Repeat Analysis Critical Result S_CL:80 Called to and read back by: TREMAINE LAND at: 12/19/2024 12:00:32 by:VANESSAPerformed By: #### [id number] #### [facility] [address] [place] [address]JU8 [Moles/Vol]24 mmol/RPhikbr09-95NsworvCommunity Memorial Hospital Comment on above:Performed By: #### [id number] #### [facility] [address], [place] [address]Dqnvbawmnt [Mass/Vol]1.9 mg/dLHigh0.5-1.3FUniversity Hospitals Portage Medical CenterComment on above:Performed By: #### [id number] #### [facility] [address], [place] [address]Wvfnnhl [Mass/Vol]1228 mg/qBXrqxzgya91-252PkgmhhCommunity Memorial HospitalComment on above:Result Comment: Critical Result Verified by Repeat Analysis Result Verified by Dilution Critical Result S_GLU:1228 Called to and read back by: TREMAINE LAND at: 12/19/2024 12:00:32 by:KDPerformed By: #### [id number] #### [facility] [address] [place] [address]Yvftfbifv [Moles/Vol]4.7 mmol/LNormal3.5-5.3FUniversity Hospitals Portage Medical CenterComment on above:Performed By: #### [id number] #### [facility] [address] [place] [address]Aximwd [Moles/Vol]114 mmol/GIlzkvjgd034-555ZowugvCommunity Memorial HospitalComment on above:Result Comment: Critical Result Verified by Repeat Analysis Critical Result S_NA of 114 Called to and read back by: TREMAINE LAND at: 12/19/2024 12:00:32 by:KDPerformed By: #### [id number] #### [facility] [address], [place] [address]Lvvo nitrogen [Mass/Vol]54 mg/dLHigh5-21Community Memorial HospitalComment on above:Performed By: #### [id number] #### [facility] [address], [place] [address]Rjty nitrogen/Creatinine [Mass ratio]28 No MajgaUszt65-79AfcmzmCommunity Memorial HospitalComment on above:Performed By: #### [id number] #### [facility] [address], [place] [address]NFAWme 59-96-1949Vjku HB Qnt1.12 mmol/LHigh0.02-0.27Community Memorial HospitalComment on above:Performed By: #### [id number] #### [facility] [address] [place] [address]DOK w/ Auto Diffon 46-40-4717Eudwuloqm/100 WBC (Bld)0.8 %Normal 0.0-2.0Community Memorial HospitalComment on above:Performed By: #### [id number] #### [facility] [address] [place] [address]Bqmhfnypg/Leukocytes Auto (Bld) [Pure # fraction]0.1 E9/LNormal 0.0-0.2FUniversity Hospitals Portage Medical CenterComment on above:Performed By: #### [id number] #### [facility] [address] [place] [address]Cesjpfordzy (Bld) [#/Vol]0.2 E9/LNormal0.0-0.5FUniversity Hospitals Portage Medical CenterComment on above:Performed By: #### [id number] #### [facility] [address] [place] [address] 184[address]Yvheeenpkuf/100 WBC (Bld)3.6 %Normal0.0-8.0Community Memorial HospitalComment on above:Performed By: #### [id number] #### [facility] [address] [place] [address] 707[address]Gctfdnmvirr distribution width (RBC) [Ratio]13.4 %Normal 10.9-14.2FUniversity Hospitals Portage Medical CenterComment on above:Performed By: #### [id number] #### [facility] [address] [place] [address] 696[address]Vfjycpnrpa (Bld) [Volume fraction]46.6 %Rodpkt61.7-49.0Community Memorial HospitalComment on above:Performed By: #### [id number] #### [facility] [address] [place] [address]Kxplodhtyv (Bld) [Mass/Vol]15.3 g/sVKbyllm76.5-17.5FUniversity Hospitals Portage Medical CenterComment on above:Performed By: #### [id number] #### [facility] [address] [place] [address]03[address]Dkcajtlekkt (Bld) [#/Vol]1.6 E9/LNormal1.0-4.0Community Memorial HospitalComment on above:Performed By: #### [id number] #### [facility] [address] [place] [address] 48[address]Jdmzexqiknm/100 WBC (Bld)24.8 %Udtbgc71.0-50.0Community Memorial HospitalComment on above:Performed By: #### [id number] #### [facility] [address] [place] [address] 64661ZML (RBC) [Entitic mass]31.0 xfRejhis32.0-34.0Community Memorial HospitalComment on above:Performed By: #### [id number] #### [facility] [address] [place] [address] 49382KONX (RBC) [Mass/Vol]32.7 g/rIHnhopy32.4-36.0Community Memorial HospitalComment on above:Performed By: #### [id number] #### [facility] [address] [place] [address] 786[address]ASV (RBC) [Entitic vol]94.8 qNRugnud63.0-100.0Community Memorial HospitalComment on above:Performed By: #### [id number] #### [facility] [address] [place] [address] 55[address]Dhnwmlvmi (Bld) [#/Vol]0.6 E9/LNormal0.2-1.0Community Memorial HospitalComment on above:Performed By: #### [id number] #### [facility] [address] [place] [address] 90[address]Xcrkpnephjj (Bld) [#/Vol]3.9 E9/LNormal2.0-7.5FUniversity Hospitals Portage Medical CenterComment on above:Performed By: #### [id number] #### [facility] [address] [place] [address] 35842Ohgzvvhyith/100 WBC (Bld)61.6 %Ehkpqw16.0-75.0Community Memorial HospitalComment on above:Performed By: #### [id number] #### [facility] [address] [place] [address] 67704Damxonqz844.0 E9/YScfpdh844.0-500.0[facility] Comment on above:Performed By: #### [id number] #### [facility] [address] [place] [address] 376[address]Qazmiwjf mean volume (Bld) [Entitic vol]8.5 fLNormal6.4-10.8 [facility] Memorial HospitalComment on above:Performed By: #### [id number] #### [facility] [address] [place] [address] 40494DDB (Bld) [#/Vol]4.9 E12/LNormal4.3-5.9Community Memorial HospitalComment on above:Performed By: #### [id number] #### [facility] [address] [place] [address] 36169STL corrected for nucl RBC Auto (Bld) [#/Vol]6.4 E9/LNormal 4.0-11.0Community Memorial HospitalComment on above:Performed By: #### [id number] #### [facility] [address] [place] [address] 78[address]Ljolwgipb Glucose POCon 27-89-4691Oqdcdet [Mass/Vol]mg/dL Xhggswhc89-86AbifmaCommunity Memorial HospitalComment on above:Result Comment: Notified RN/KENROYerformed By: #### [id number] #### [facility] [address] [place] [address]07[address]FD Clinical Summaryon [id number] Clinical SummaryED Clinical Summary [address] [id number] ED Clinical Summary Person Information Name: NICOLE LORA/[place] Age: 64 Years : 1960 Sex: Male Language: Panamanian PCP: Mendy LYMAN, Mounika Lugo Marital Status: Phone: [phone] Visit Id: Visit Reason: Leg pain-swelling; Weakness [...] 12/19/2024 14:13:49 12/19/2024 14:13:49 12/19/2024 14:13:49 ADDRESS: [address] [place] [id number] PHYS DOC NOTES: MEDICAL INFORMATION: Prescriptions Given: New Medications [id number], [address] [place], [place] [id number], [phone] methocarbamol (Robaxin-750 oral tablet) 1 Tablets By Mouth 3 times a day for 3 Days. Refills: 0. Medications to Continue with No Changes Other Medications albuterol (Albuterol (Eqv-ProAir HFA) 90 mcg/inh inhalation aerosol) 2 Puffs Inhalation every 6 hours as needed Wheezing. Refills: 11. albuterol (albuterol 0.083% Inh Harriet 3 mL) 3 Milliliter Inhalation every 4 hours as needed Shortnessof breath or wheezing. Refills: 5. albuterol (Ventolin HFA 90 mcg/inh Aerosol) 2 Puffs Inhalation every 4 hours as needed Shortness ofbreath or wheezing. Refills: 5. atorvastatin (atorvastatin 40 [...] day before your procedure and 1 tab theday of procedure - afterwards. Refills: 0. doxycycline [...] Refills: 4. Misc Prescription (Freestyle Sage 2 [place]) Use daily with sensor. Refills: 0. Misc Prescription (Freestyle Sage 2 Sensors) Apply one q 14 days. Refills: 3. Misc Prescription (Glucometer test strips) Test TID DX E11.40 on insulin. Refills: 11. Misc Prescription (Glucometer) Dispense 1 Glucometer. Refills: 0. Misc Prescription (Insulin Pen [place] 31g x 8 mm) Use up to 4 daily. Refills: 4. (more content not included)...[facility] Patient Summaryon [id number] Patient SummaryED Patient Summary [address] [id number] Patient Discharge Instructions Person Information Name: NICOLE LORA Age: 64 Years Arrival Date: 12/19/2024 10:20:20 Discharge Diagnosis: Hyperglycemia; Muscle cramps Primary Care Physician: Mounika Brooke MD Provider Information Primary Provider: Corky Luo MD [facility] Resident:Jesus Grijalva PA-C The exam and treatment you received in the Emergency Department were for an urgent problem and are not intended as complete care. It is important that you follow up with a doctor, nurse practitioner,or physician???s customer assistant for ongoing care. If your symptoms become worse or you do not improve asexpected and you are unable to reach your usual health care provider, you should return to the Emergency Department. We are available 24 hours a day. NICOLE LORA has been given the following list of patient education materials, prescriptions and follow-up instructions: Follow-up Instructions: With: Address: When: Mounika [place] [place] [address] [facility] (1) In 3 days 12/22/2024 In the event that this physician does not participate in your insurance network, please consult with your insurance company to find a nearby participating provider. Patient Education Materials: Hyperglycemia A MESSAGE TO ALL PATIENTS REGARDING OPIOIDS PRESCRIPTION OPIOIDS: WHAT YOU NEED TO KNOW Prescription opioids can be used to help relieve wlsndmvd-yp-xzsfmi pain and are often prescribed following a [...] guidance from the Food and Drug Administration (www.fda.gov/Drugs/ResourcesForYou). ??? Visit www.cdc.gov/drugoverdose to learn about the risks of opioids abuse and overdose. ??? If you believe you may be struggling with addiction, tell your health animal care worker and askfor guidance o (more content not included)...NormalCommunity Memorial HospitalExtra Blueon 82-34-4687Lvpu Collected PlasmaYesInvalid Interpretation CodeCommunity Memorial HospitalComment on above:Performed By: #### [id number] #### [facility] [address], [place] [address]Rqx Fun Panelon 69-94-6884Jmschhw [Mass/Vol]3.4 g/dLNormal 3.3-5.0Community Memorial HospitalComment on above:Performed By: #### [id number] #### [facility] [address], [place] [address]Nptroge/Globulin (S) [Mass conc ratio]1.5Yoeayp6.1-2.2FUniversity Hospitals Portage Medical CenterComment on above:Performed By: #### [id number] #### [facility] [address], [place] [address]YZT [Catalytic activity/Vol]208 Int._Unit/GRtca57-99YxrjgyCommunity Memorial HospitalComment on above:Performed By: #### [id number] #### [facility] [address], [place] [address]XLQ No additional P-5'-P [Catalytic activity/Vol]25 Int._Unit/L Normal6-46Community Memorial HospitalComment on above:Performed By: #### [id number] #### [facility] [address] [place] [address] 88[address]CYW [Catalytic activity/Vol]26 Int._Unit/LNormal5-43Community Memorial HospitalComment on above:Performed By: #### [id number] #### [facility] [address] [place] [address] 44096Gitrbwntw [Mass/Vol]0.9 mg/dLNormal0.0-1.1FUniversity Hospitals Portage Medical CenterComment on above:Performed By: #### [id number] #### [facility] [address] [place] [address]30[address]Dhtoznuss.direct [Mass/Vol]0.1 mg/dLNormal0.0-0.4FUniversity Hospitals Portage Medical CenterComment on above:Performed By: #### [id number] #### [facility] [address] [place] [address] 434[address]Emkzdjfkz.indirect [Mass or moles/Vol]0.8 mg/dLNormal0.1-0.9 [facility] Memorial HospitalComment on above:Performed By: #### [id number] #### [facility] [address] [place] [address] 676[address]Kbesryyi (S) [Mass/Vol]3.1 g/dLNormal1.4-4.0Community Memorial HospitalComment on above:Performed By: #### [id number] #### [facility] [address] [place] [address] 46086Cfznfnz [Mass/Vol]6.5 g/dLNormal6.0-7.8Community Memorial HospitalComment on above:Performed By: #### [id number] #### [facility] [address] [place] [address] 34771UY Chest Single Viewon [id number] Chest Single ViewExam Date/Time: 12/19/2024 11:31 EDT Reason for Exam: [...] Shaquille Broussard DO Transcribed by: KAT Technologist: ECTORWayne HealthCare Main CampuseGFRon 10-58-1219bOOX64 mL/min/1.73 m2Low>=59Community Memorial HospitalComment on above:Performed By: #### [id number] #### [facility] [address], [place] [address]SA Note-Physicianon 83-55-0955NV Note-PhysicianED Note-Physician Basic Information Time Seen: Greyson ENGLE, Paddy Nunez. 12/02/2024 12:42 Chief Complaint Concerned for dehydration. [...] other associated symptoms no other prior treatments orcomplaints. Family: Reviewed and noncontributory Social: lives at [...] emergency department with concerns of dehydration status. Reportshas been drinking plenty of water, but still feels very thirsty. Reports he is diabetic. Exam patient here is rather benign. Reports mild cough is going on for couple weeks as well. He is in no acute distress. Due to concerns we did do basic labs. Lab work did show that he is hyperglycemic. He doeshave pseudohyponatremia. Kidney function stable. I discussed and [...] the patient for the current complaint at thistime because they do not want us to [...] day(s), # 20 cap(s), Refills(s) 0, Pharmacy: [facility] #[id number], 183, cm, 12/02/24 12:47:0 (more content not included)...NormalCommunity Memorial HospitalComment on above:Result Comment: Electronically Signed By: Paddy Betancourt PA-C\.br\Date and Time Signed: 12/02/2514:27 EDT\.br\Electronically Co-Signed By: Nicole Myers DO\.samir\Date and Time Co-Signed: 12/16/24 07:10 EDTBMPon 48-23-2263Oiwto gap [Moles/Vol]16 mmol/LNormal6-16Community Memorial HospitalComment on above: Performed By: #### [id number] #### [facility] [address] [place] [address] 54127Rwkasns [Mass/Vol]9.0 mg/dLNormal8.9-11.1FUniversity Hospitals Portage Medical CenterComment on above:Performed By: #### [id number] #### [facility] [address], [place] [address]Ygdspycp [Moles/Vol]87 mmol/YWpr828-758IslcedCommunity Memorial HospitalComment on above:Performed By: #### [id number] #### [facility] [address], [place] [address]MY3 [Moles/Vol]25 mmol/MFzvhna56-46AjomghCommunity Memorial Hospital Comment on above:Performed By: #### [id number] #### [facility] [address], [place] [address]Bhzuxhyvbd [Mass/Vol]1.6 mg/dLHigh0.5-1.3FUniversity Hospitals Portage Medical CenterComment on above:Performed By: #### [id number] #### [facility] [address], [place] [address]Wkoejbh [Mass/Vol]751 mg/lQHdevjjsx33-072VtqufnCommunity Memorial HospitalComment on above:Result Comment: Critical Result Verified by Repeat Analysis Critical Result [id number] Called to and read back by: TREMAINE LAND at: 12/02/2024 13:48:34 by:Angelformed By: #### [id number] #### [facility] [address], [place] [address]Egontavnm [Moles/Vol]4.4 mmol/LNormal3.5-5.3FUniversity Hospitals Portage Medical CenterComment on above:Performed By: #### [id number] #### [facility] [address], [place] [address]Roajkp [Moles/Vol]124 mmol/DSlk099-530VsiwnmCommunity Memorial HospitalComment on above:Performed By: #### [id number] #### [facility] [address], [place] [address]Lhuc nitrogen [Mass/Vol]40 mg/dLHigh5-21Community Memorial HospitalComment on above:Performed By: #### [id number] #### [facility] [address] [place] [address] 28321Ktca nitrogen/Creatinine [Mass ratio]25 No IdfgxBqnl23-36FmclysCommunity Memorial HospitalComment on above:Performed By: #### [id number] #### [facility] [address] [place] [address] 52008CMJ w/ Auto Diffon 13-77-3055Zkupetjgv/100 WBC (Bld)0.6 %Normal 0.0-2.0Community Memorial HospitalComment on above:Performed By: #### [id number] #### [facility] [address] [place] [address]Givrqexut/Leukocytes Auto (Bld) [Pure # fraction]0.0 E9/LNormal 0.0-0.2FUniversity Hospitals Portage Medical CenterComment on above:Performed By: #### [id number] #### [facility] [address] [place] [address] 79676Atexsoelagx (Bld) [#/Vol]0.2 E9/LNormal0.0-0.5FUniversity Hospitals Portage Medical CenterComment on above:Performed By: #### [id number] #### [facility] [address] [place] [address] 911[address]Weceejzuaja/100 WBC (Bld)2.8 %Normal0.0-8.0Community Memorial HospitalComment on above:Performed By: #### [id number] #### [facility] [address] [place] [address] 08318Kcqvdbgiowm distribution width (RBC) [Ratio]13.4 %Normal 10.9-14.2FUniversity Hospitals Portage Medical CenterComment on above:Performed By: #### [id number] #### [facility] [address] [place] [address] 50422Soabzlbxrx (Bld) [Volume fraction]48.9 %Larmky11.7-49.0Community Memorial HospitalComment on above:Performed By: #### [id number] #### [facility] [address] [place] [address] 24863Sbgnyqxjmo (Bld) [Mass/Vol]16.6 g/rDRgigjp37.5-17.5FUniversity Hospitals Portage Medical CenterComment on above:Performed By: #### [id number] #### [facility] [address] [place] [address] 28443Ksphtptqqnk (Bld) [#/Vol]1.2 E9/LNormal1.0-4.0Community Memorial HospitalComment on above:Performed By: #### [id number] #### [facility] [address] [place] [address] 96645Ursnwffefgn/100 WBC (Bld)20.6 %Sphgrv06.0-50.0Community Memorial HospitalComment on above:Performed By: #### [id number] #### [facility] [address] [place] [address] 14249RFW (RBC) [Entitic mass]31.4 qnZufdhd70.0-34.0Community Memorial HospitalComment on above:Performed By: #### [id number] #### [facility] [address] [place] [address] 33168QFWF (RBC) [Mass/Vol]33.9 g/qUFsdaii80.4-36.0Community Memorial HospitalComment on above:Performed By: #### [id number] #### [facility] [address] [place] [address] 38903LZX (RBC) [Entitic vol]92.6 dUChexlx31.0-100.0Community Memorial HospitalComment on above:Performed By: #### [id number] #### [facility] [address] [place] [address] 23912Xskzvobmu (Bld) [#/Vol]0.4 E9/LNormal0.2-1.0Community Memorial HospitalComment on above:Performed By: #### [id number] #### [facility] [address] [place] [address] 16439Sgxswugnxpm (Bld) [#/Vol]4.1 E9/LNormal2.0-7.5FUniversity Hospitals Portage Medical CenterComment on above:Performed By: #### [id number] #### [facility] [address], [place] [address]Ifecwmcests/100 WBC (Bld)69.1 %Imyadz69.0-75.0Community Memorial HospitalComment on above:Performed By: #### [id number] #### [facility] [address], [place] [address]Xsgyftyw mean volume (Bld) [Entitic vol]7.5 fLNormal6.4-10.8 Community Memorial HospitalComment on above:Performed By: #### [id number] #### [facility] [address] [place] [address] 20603Wmwmdhnqu (Bld) [#/Vol]268.0 E9/VEdhzea708.0-500.0Community Memorial HospitalComment on above:Performed By: #### [id number] #### [facility] [address] [place] [address] 82468ZPU (Bld) [#/Vol]5.3 E12/LNormal4.3-5.9Community Memorial HospitalComment on above:Performed By: #### [id number] #### [facility] [address] [place] [address] 66024CIY corrected for nucl RBC Auto (Bld) [#/Vol]6.0 E9/LNormal 4.0-11.0Community Memorial HospitalComment on above:Performed By: #### [id number] #### [facility] [address] [place] [address] 35125NLBWIMNZKPxnozmo By: SYSTEM SYSTEM on 84-50-8135Tnihn gap [Moles/Vol]16 mmol/LNormal6 - 16 mEq/LRemisol ChemCalcium [Mass/Vol]9.0 mg/dL Normal8.9 - 11.1 mg/dLRemisol ChemChloride [Moles/Vol]87 mmol/VRfd621 - 111 mmol/LRemisol ChemCO2 [Moles/Vol]25 mmol/GYbmkzs37 - 31 mmol/LRemisol Chem Creatinine [Mass/Vol]1.6 mg/dLHigh0.5 - 1.3 mg/dLRemisol TwmejGYT97 mL/min/1.73 m2Low>=59mL/min/1.73 v9Ahldmwd ChemGlucose [Mass/Vol]751 mg/dLInvalid Interpretation Code55 - 199 mg/dLRemisol ChemComment on above:Result Comment: Critical Result Verified by Repeat Analysis Critical Result [id number] Called to and read back by: TREMAINE LAND at: 12/02/2024 13:48:34 by:CMKPotassium [Moles/Vol]4.4 mmol/LNormal3.5 - 5.3 mmol/L Remisol ChemSodium [Moles/Vol]124 mmol/EEvr643 - 145 mmol/LRemisol ChemUrea nitrogen [Mass/Vol]40 mg/dLHigh5 - 21 mg/dLRemisol ChemUrea nitrogen/Creatinine [Mass ratio]25 mg/tdYqoc07 - 20Remisol ChemED Clinical Summaryon [id number] Clinical SummaryED Clinical Summary [place] [id number] ED Clinical Summary Person Information Name: NICOLE LORA/[facility] Age: 64 Years : 1960 Sex: Male Language: Panamanian PCP: Mounika Brooke MD Marital Status: Phone: [phone] Visit Id: Visit Reason: Nausea; Dehydration; PT [...] 12/02/2024 15:24:12 12/02/2024 15:24:12 12/02/2024 15:24:12 ADDRESS: [address] [place] [phone] PHYS DOC NOTES: MEDICAL INFORMATION: Prescriptions Given: New Medications [facility] #[id number], [address] [place] [phone], [phone] cefdinir (cefdinir 300 mg Cap) 1 Capsules By Mouth every 12 hours for 10 Days. Refills: 0. Medications to Continue Taking That Have Changed [facility] #[id number], [address] [place] [phone], [phone] START: doxycycline (doxycycline hyclate 100 mg Cap) [...] Milliliter Inhalation every 4 hours as needed Shortnessof breath or wheezing. Refills: 5. albuterol (Ventolin HFA 90 mcg/inh Aerosol) 2 Puffs Inhalation every 4 hours as needed Shortness ofbreath or wheezing. Refills: 5. atorvastatin (atorvastatin 40 [...] Misc Prescription (Freestyle Li (more content not included)...[facility] Medical CenterED Note-Nursingon 25-98-8179UX Note-NursingED Note-Nursing pt. leaves AMA at this time. paper signed.[facility] CenterED Patient Summaryon [id number] Patient SummaryED Patient Summary [place] [id number] Patient Discharge Instructions Person Information Name: NICOLE LORA Age: 64 Years Arrival Date: 12/02/2024 12:35:03 Discharge Diagnosis: Bronchitis; Hyperglycemia; Left against medical advice Primary Care Physician: Mounika Brooke MD Provider Information Primary Provider: Nicole Myers DO Advanced Osteopathic Resident:Paddy Betancourt PA-C The exam and treatment you received in the Emergency Department were for an urgent problem and are not intended as complete care. It is important that you follow up with a doctor, nurse practitioner,or physician???s customer assistant for ongoing care. If your symptoms become worse or you do not improve asexpected and you are unable to reach your usual health care provider, you should return to the Emergency Department. We are available 24 hours a day. NICOLE LORA has been given the following list of patient education materials, prescriptions and follow-up instructions: Follow-up Instructions: With: Address: When: Mounika [place] [place] [address] [facility] (1) In 3 days 12/05/2024 Comments: Call Dr for diagnosis based follow up In the event that this physician does not participate in your insurance network, please consult with your insurance company to find a nearby participating provider. Patient Education Materials: Acute Bronchitis, Adult; Type 2 Diabetes Mellitus, Self-Care, Adult, Janx-fz-Vqol; Hyperglycemia A MESSAGE TO ALL PATIENTS REGARDING OPIOIDS PRESCRIPTION OPIOIDS: WHAT YOU NEED TO KNOW Prescription opioids can be used to help relieve lttykwnj-yp-xvcmie pain and are often prescribed following a [...] guidance from the Food and Drug Administration (www.fda.gov/Drugs/ResourcesForYou). ??? Visit www.cdc.gov/drugoverdose to lear (more content not included)...Normal Community [facility] HospitalExtra Blueon 11-06-6002Qyyy Collected PlasmaYes Invalid Interpretation CodeFisher Johns Hopkins HospitalComment on above:Performed By: #### [id number] #### [facility] [address], [place] [address]XHCKNUETVNRlgdyea By: SYSTEM SYSTEM on 33-69-1965Jlzctwdzf/100 WBC (Bld)0.6 %Normal0.0 - 2.0 %Remisol HemeBasophils/Leukocytes Auto (Bld) [Pure # fraction]0.0 E9/LNormal0.0 - 0.2 E9/LRemisol HemeEosinophils (Bld) [#/Vol]0.2 E9/LNormal0.0 - 0.5 E9/LRemisol HemeEosinophils/100 WBC (Bld)2.8 %Normal0.0 - 8.0 %Remisol HemeErythrocyte distribution width (RBC) [Ratio]13.4 %Wpchds62.9 - 14.2 %Remisol HemeHematocrit (Bld) [Volume fraction]48.9 %Jslabw73.7 - 49.0 % Remisol HemeHemoglobin (Bld) [Mass/Vol]16.6 g/mMJchppk06.5 - 17.5 gm/dLRemisol HemeLymphocytes (Bld) [#/Vol]1.2 E9/LNormal1.0 - 4.0 E9/LRemisol Heme Lymphocytes/100 WBC (Bld)20.6 %Ibjrww92.0 - 50.0 %Remisol HemeMCH (RBC) [Entitic mass]31.4 yoBrcyqb32.0 - 34.0 pgRemisol HemeMCHC (RBC) [Mass/Vol]33.9 g/dL Uhsiow67.4 - 36.0 gm/dLRemisol HemeMCV (RBC) [Entitic vol]92.6 nKPrzxsi88.0 - 100.0 fLRemisol HemeMonocytes (Bld) [#/Vol]0.4 E9/LNormal0.2 - 1.0 E9/LRemisol HemeMonocytes/100 WBC (Bld)6.9 %Normal4.0 - 14.0 %Remisol HemeNeutrophils (Bld) [#/Vol]4.1 E9/LNormal2.0 - 7.5 E9/LRemisol HemeNeutrophils/100 WBC (Bld)69.1 % Vvnqmg87.0 - 75.0 %Remisol HemePlatelet mean volume (Bld) [Entitic vol]7.5 fL Normal6.4 - 10.8 fLRemisol HemePlatelets (Bld) [#/Vol]268.0 E9/BSyicee915.0 - 500.0 E9/LRemisol HemeRBC (Bld) [#/Vol]5.3 E12/LNormal4.3 - 5.9 E12/LRemisol HemeWBC corrected for nucl RBC Auto (Bld) [#/Vol]6.0 E9/LNormal4.0 - 11.0 E9/L Remisol HemeXR Chest Single Viewon [id number] Chest Single ViewExam Date/Time: 12/02/2024 13:58 EDT Reason for Exam: [...] Shaquille Broussard DO Transcribed by: KAT Technologist: ArnoldCommunity Memorial HospitaleGFRon 87-71-0562gNZT20 mL/min/1.73 m2Low>=59Community [facility] HospitalComment on above:Performed By: #### [id number] #### [facility] [address] [place] [address] 91398Vnqxsub (Bld) [Mass/Vol]on 54-55-8866Frekiik Blood, XPR648 mg/dLBarnes-Jewish Saint Peters HospitalLaboratory - Hematology and Cell countson 24-73-7225DxO1u (Bld) [Mass fraction]12.9 %[facility] HealthcareNo Panel Informationon 66-99-2760ZLWPSaint Luke's North Hospital[facility] eye Ophthalmologic treatmenton 36-12-9184FOCCBarnes-Jewish Saint Peters HospitalRadiology Study observation (narrative)[facility] HospitalOptical coherence tomography study reporton 12-74-8019ZAKRSaint Luke's North Hospital–[facility]ry Road Eye Quality was good. Scan locations included subfoveal, juxtafoveal, extrafoveal, temporal. Progression has been stable. Notes Proliferative diabetic retinopathy of left eyeKindred [facility] Radiology Study observation (narrative)[facility] HealthcareGlucose (Bld) [Mass/Vol] Ordered By: Amanda Cesar on 82-00-4495Ewvhlxl Blood, CXF964 mg/dLFreeman Heart Institute HealthcareED Clinical Summaryon [id number] Clinical SummaryED Clinical Summary [address] [address] ED Clinical Summary Person Information Name: NICOLE LORA/[facility] Age: 64 Years : 1960 Sex: Male Language: Panamanian PCP: Mounika Brooke MD Marital Status: Phone: [phone] Visit Id: Visit Reason: Arm pain-swelling; RIGHT [...] 07/09/2024 16:21:24 07/09/2024 16:21:24 07/09/2024 16:21:24 ADDRESS: [address] [place] [phone] [facility] DOC NOTES: MEDICAL INFORMATION: Prescriptions Given: New Medications [facility] #[id number], [address], [place] [id number], [phone] acetaminophen-oxycodone (Percocet 5 mg-325 mg oral tablet) 1 [...] Milliliter Inhalation every 4 hours as needed Shortnessof breath or wheezing. Refills: 5. albuterol (Ventolin HFA 90 mcg/inh Aerosol) 2 Puffs Inhalation every 4 hours as needed Shortness ofbreath or wheezing. Refills: 5. atorvastatin (atorvastatin 40 [...] day before your procedure and 1 tab theday of procedure - afterwards. Refills: 0. doxycycline [...] Refills: 4. Misc Prescription (Freestyle Sage 2 [place]) Use daily with sensor. Refills: 0. Misc Prescription (Freestyle Sage 2 Sensors) Apply one q 14 days. Refills: 3. Misc Prescription (Glucometer test strips) Test TID DX E11.40 on insulin. Refills: 11. Misc Prescription (Glucometer) Dispense 1 Glucometer. Refills: 0. Misc Prescription (Insulin Pen [place] 31g x 8 mm) Use up to [...] every 8 hours a (more content not included)...[facility]Ararat [facility]one Medical CenterED Note-Physician on [id number] Note-PhysicianED Note-Physician Basic Information Time Seen: Jesus Grijalva [...] pain to the right shoulder area. He hashad persistent pain since that time. Good range [...] for pain for 3 day(s), 10 tab(s), Refill(s)0, [facility] #[id number], 183, cm, 07/09/24 14:44:00 EST, Height/Length Dosing, [...] 3 days 07/12/2024 EST [address] [place] [address]- Business (1) Additional Instructions: Patient Education Tendinitis [...] made to ensure accuracy, however, inadvertently computerized floor technician mistakes may be present. Appropriate healthcare [...] macular edema associated with type2 diabetes mellitus Morbid obesity Onychomycosis TC (obstructive [...] Major depressive disorder, severe (more content not included)...[facility] CampusComment on above: Result Comment: Electronically Signed By: Jesus Grijalva PA-C\.br\Date and Time Signed: 07/09/2416:16 EST\.br\Electronically Co-Signed By: Nicole Myers DO\.br\Date and Time Co-Signed: 07/09/24 18:49 ESTED Patient Summaryon [id number] Patient SummaryED Patient Summary [place] [id number] Patient Discharge Instructions Person Information Name: NICOLE LORA Age: 64 Years Arrival Date: 07/09/2024 14:35:34 Discharge Diagnosis: Left shoulder pain; Tendinitis Primary Care Physician: Mounika Brooke MD Provider Information Primary Provider: Nicole Myers DO Advanced Osteopathic Resident:Jesus Grijalva PA-C The exam and treatment you received in the Emergency Department were for an urgent problem and are not intended as complete care. It is important that you follow up with a doctor, nurse practitioner,or physician???s customer assistant for ongoing care. If your symptoms become worse or you do not improve asexpected and you are unable to reach your usual health care provider, you should return to the Emergency Department. We are available 24 hours a day. NICOLE LORA has been given the following list of patient education materials, prescriptions and follow-up instructions: Follow-up Instructions: With: Address: When: Zak Ishmael [address] [place], [place] [id number] business (6) In 3 days 07/12/2024 In the event that this physician does not participate in your insurance network, please consult with your insurance company to find a nearby participating provider. Patient Education Materials: Anjali A MESSAGE TO ALL PATIENTS REGARDING OPIOIDS PRESCRIPTION OPIOIDS: WHAT YOU NEED TO KNOW Prescription opioids can be used to help relieve mhomlpxj-gp-kebpfp pain and are often prescribed following a [...] guidance from the Food and Drug Administration (www.fda.gov/Drugs/ResourcesForYou). ??? Visit www.cdc.gov/drugoverdose to learn about the risks of opioids abuse and overdose. ??? If you believe you may be struggling with addiction, tell your health animal care worker and askfor ernst (more content not included)...[facility] Main CampusXR Shoulder Complete Righton 10-15-1544UF Shoulder Complete Right Exam Date/Time: 07/09/2024 15:44 EST Reason for Exam: Pain, Traumatic Report IMPRESSION: No acute osseous findings. Possible calcific tendinosis. EXAMINATION/TECHNIQUE: XR Shoulder Complete Right HISTORY: Right arm [...] REPORT Dictated: 07/09/2024 3:58 pm Primo Robles MD. Signed (Electronic Signature): 07/09/2024 3:58 pm Signed by: Primo Robles MD Transcribed by: KAT Technologist: TORI Technical Comments Radiation Dose: Ka,r in mGy = na DAP = naNorSouthwest General Health Center Clinical Summaryon [id number] Clinical SummaryED Clinical Summary [place] [id number] ED Clinical Summary Person Information Name: NICOLE LORA/[facility] Age: 64 Years : 1960 Sex: Male Language: Panamanian PCP: Mounika Brooke MD Marital Status: Phone: [phone] Visit Id: Visit Reason: Rib/trunk pain-swelling; RIB [...] 06/23/2024 14:01:17 06/23/2024 14:01:17 06/23/2024 14:01:17 ADDRESS: [address] [place] [phone] PHYS DOC NOTES: MEDICAL INFORMATION: Prescriptions Given: New Medications [facility] #[id number], [address] [place], [place] [phone], [phone] acetaminophen-oxycodone (acetaminophen-oxycodone 325 mg-5 mg Tab) 1 Tablets By Mouth every 6 hours as needed for pain for 3 Days. Refills: 0. Medications to Continue Taking That Have Changed [id number], [address] [place], [place] [phone], [phone] START: doxycycline (doxycycline hyclate 100 mg Cap) [...] Milliliter Inhalation every 4 hours as needed Shortnessof breath or wheezing. Refills: 5. albuterol (Ventolin HFA 90 mcg/inh Aerosol) 2 Puffs Inhalation every 4 hours as needed Shortness ofbreath or wheezing. Refills: 5. atorvastatin (atorvastatin 40 [...] Refills: 4. Misc Prescription (Freestyle Sage 2 [place]) Use daily with sensor. Refills: 0. Misc Prescription (Freestyle Sage 2 Sensors) Apply one q 14 days. Refills: 3. Misc Prescription (Glucometer test strips) Test TID DX E11.40 on insulin. Refills: 11. Misc Prescription (Glucometer) Dispense 1 Glucometer. Refills: 0. Misc Prescription (Insulin Pen [place] 31g x 8 mm) Use up to [...] PATIENT EDUCATION INFORMATION: Inst (more content not included)...[facility] Medical CenterED Note-Physicianon [id number] Note-PhysicianED Note-Physician Basic Information Time Seen: Greyson ENGLE, [...] other associated symptoms no other prior treatments orcomplaints. Family: Reviewed and noncontributory Social: lives at [...] ago, having rib pain. Reports x-rays were performed.I was able to review previous x-rays, that [...] for 3 day(s), 12 tab(s), Refill(s) 0, [facility] #[id number], 183, cm, 06/23/24 13:45:00 EST, Height/Length Dosing, 143, kg, 06/23/24 13:45:00 EST, Weight Dosing doxycycline, 100 mg = 1 cap(s), Oral, BID, # 20 cap(s), Refills(s) 0, Pharmacy: [facility] #[id number], 183, cm, 06/23/24 13:45:00 EST, Height/Length Dosing, 143, kg, 06/23/24 13:45:00 EST, Weight Dosing Disposition Plan Patient Discharge Condition Stable Discharge Disposition To home Discharge Prescription List Prescriptions acetaminophen-oxycodone 325 mg-5 mg Tab, 1 tab(s), Oral, q6hr, PRN doxycycline hyclate 100 mg Cap, 100 mg= 1 cap(s), Oral, BID Follow-up With When Contact Information Mounika Brooke In 3 days 06/26/2024 [facility] [address] [place] [address]- Business (1) Additional Instructions: Call Dr for diagnosis based follow up Patient Education Community-Acquired Pneumonia, Adult, Gwdu-oh-Rqzp Rib Contusion Attestation Patient seen and evaluated by the physician customer assistant. Attending physician was present in the emergency department and supervised care. This visit was performed by both the physician and an APC. I performed all aspects of the MDM as documented. This report was transcribed using voice recognition software. Every effort was made to ensure accuracy, however, inadvertently computerized floor technician mistakes may be present. Appropriate healthcare PPE was used in evaluating this patient. The patient was placed in a mask. The healthcare provider was wearing mask, gloves, and utilizing proper hand hygiene. All equipment was properly cleansed. I performed a substantive part of the MDM during (more content not included)...[facility] CampusComment on above:Result Comment: Electronically Signed By: Paddy Betancourt PA-C\.br\Date and Time Signed: 06/23/2414:07 EST\.br\Electronically Co-Signed By: Alejandro Silva M.D.\.br\Date and Time Co-Signed: 06/23/24 14:26 ESTED Patient Summaryon 06-23-2024 ED Patient SummaryED Patient Summary [address] [address] Patient Discharge Instructions Person Information Name: NICOLE LORA Age: 64 Years Arrival Date: 06/23/2024 13:36:38 Discharge Diagnosis: Contusion of rib on left side; Pneumonia Primary Care Physician: Mounika Brooke MD Provider Information Primary Provider: Alejandro Silva M.D. Advanced Osteopathic Resident:None The exam and treatment you received in the Emergency Department were for an urgent problem and are not intended as complete care. It is important that you follow up with a doctor, nurse practitioner,or physician???s customer assistant for ongoing care. If your symptoms become worse or you do not improve asexpected and you are unable to reach your usual health care provider, you should return to the Emergency Department. We are available 24 hours a day. NICOLE LORA has been given the following list of patient education materials, prescriptions and follow-up instructions: Follow-up Instructions: With: Address: When: Mounika Brooke [facility] [place] [address] [facility] (1) In 3 days 06/26/2024 Comments: Call for diagnosis based follow up In the event that this physician does not participate in your insurance network, please consult with your insurance company to find a nearby participating provider. Patient Education Materials: Community-Acquired Pneumonia, Adult, Ymvb-yh-Lsdp; Rib Contusion A MESSAGE TO ALL PATIENTS REGARDING OPIOIDS PRESCRIPTION OPIOIDS: WHAT YOU NEED TO KNOW Prescription opioids can be used to help relieve jocnrjbt-md-rzpxmp pain and are often prescribed following a [...] guidance from the Food and Drug Administration (www.fda.gov/Drugs/ResourcesForYou). ??? Visit www.cdc.gov/drugoverdose to learn about the risks of opioids abuse and overdose. ??? If (more content not included)...[facility] Main CampusHEMOGLOBIN A1con 55-19-1852BxI9s (Bld) [Mass fraction]%High<5.7Quest DiagnosticsComment on above:Order Comment: FASTING:UNKNOWN FASTING: UNKNOWNResult Comment: For someone without known diabetes, a [...] hemoglobin A1c for diagnosis of diabetes for children.Performed By: #### [id number] #### [facility] [address], [address] [place] [id number] [place] A Driver: Anson Henley MDHbA1c (Bld) [Mass fraction]on 06-22-2024 Interpretation and review of laboratory resultsAbDeckerville Community Hospital FASTING:UNKNOWN FASTING: UNKNOWNQUESTPerforming Organization Information Site ID: QPT Name: [facility] Address: [address] [place] [address], [address] [place] [id number] Director: Anson Henley [facility] and Cell countson 22-53-1726KiK3a (Bld) [Mass fraction][facility] Comment on above:For someone without known diabetes, a hemoglobin A1c [...] for diagnosis of diabetes for children. XR CHEST 2 VIEWSon 06-21-2024 Exam Date/Time: 06/21/2024 14:55 EDT Reason for [...] Ka,r in mGy = na DAP = naFTMCRadiology, Radiologist, MD - 06/21/2024 Exam Date/Time: 06/21/2024 14:55 EDT [...] in mGy = na DAP = na [facility] HospitalRadiology Study observation (narrative)[facility] HospitalXR CHEST 2 VIEWSOrdered By: Radiologist Radiology on 09-21-2634YVWUBarnes-Jewish Saint [facility] Hospital Work Phone: XR Chest 2 Viewson 78-99-4372DR Chest 2 ViewsExam Date/Time: 06/21/2024 14:55 EDT Reason for Exam: [...] Ka,r in mGy = na DAP = naNormalFisher [facility] eye Ophthalmologic treatmenton 96-12-3653LUQC HealthcareRadiology Study observation (narrative)[facility] Optical coherence tomography study reporton 58-10-1595CNEHBarnes-Jewish Saint Peters HospitalRight Eye Quality was good. Left Eye Quality was good. Scan locations included subfoveal, juxtafoveal, extrafoveal. Progression has been stable. Findings include abnormal foveal contour, cystoid macular edema. Notes Neovascularization of the disc (NVD) OSKindred Hospital - GreensboroRadiology Study observation (narrative)[facility] eye Ophthalmologic treatmenton 18-37-1545WJRKBarnes-Jewish Saint Peters HospitalRadiology Study observation (narrative)[facility] Optical coherence tomography study reporton 28-43-6089Ehekh Eye Quality was good. Scan locations included subfoveal, juxtafoveal, extrafoveal. Progression has no prior data. Findings include abnormal foveal contour. Left Eye Quality was good. Scan locations included subfoveal, juxtafoveal, extrafoveal. Progression has no prior data. Findings include abnormal foveal contour, cystoid macular edema. Notes Pdr os Mod bgdr odNOMS [facility] HealthcareRadiology Study observation (narrative) NOMSuman HealthcareBMPon 99-29-8005Ehibv gap [Moles/Vol]13 mmol/LNormal6-16[facility] HospitalComment on above:Performed By: #### [id number] #### [facility] [address], [place] [address]Kvjcicx [Mass/Vol]8.6 mg/dLLow8.9-11.1FUniversity Hospitals Portage Medical CenterComment on above:Performed By: #### [id number] #### [facility] [address], [place] [address]Intmdzvd [Moles/Vol]100 mmol/XTrj005-923NtbmyzCommunity Memorial HospitalComment on above:Performed By: #### [id number] #### [facility] [address], [place] [address]SI0 [Moles/Vol]26 mmol/YNiawqa62-88DwimohCommunity Memorial Hospital Comment on above:Performed By: #### [id number] #### [facility] [address], [place] [address]Nnvmajhnxg [Mass/Vol]1.5 mg/dLHigh0.5-1.3FUniversity Hospitals Portage Medical CenterComment on above:Performed By: #### [id number] #### [facility] [address], [place] [address]Hlbvlmy [Mass/Vol]330 mg/uABrgk94-836QcldyuCommunity Memorial HospitalComment on above:Performed By: #### [id number] #### [facility] [address], [place] [address]Suegmuzwf [Moles/Vol]4.8 mmol/LNormal3.5-5.3FUniversity Hospitals Portage Medical CenterComment on above:Performed By: #### [id number] #### [facility] [address], [place] [address]Vhpfyp [Moles/Vol]134 mmol/TVvq352-144DoyhznCommunity Memorial HospitalComment on above:Performed By: #### [id number] #### [facility] [address], [place] [address]Tbno nitrogen [Mass/Vol]29 mg/dLHigh5-21[facility] Memorial HospitalComment on above:Performed By: #### [id number] #### [facility] [address], [place] [address]Zrlt nitrogen/Creatinine [Mass ratio]19 No UcgfmRtubud20-21 [facility] HospitalComment on above:Performed By: #### [id number] #### [facility] [address], [place] [address]BYPEQNNMFZyvznhf By: SYSTEM SYSTEM on 94-87-5055Zjrok gap [Moles/Vol]13 mmol/LNormal6 - 16 mEq/LRemisol ChemCalcium [Mass/Vol]8.6 mg/dLLow 8.9 - 11.1 mg/dLRemisol ChemChloride [Moles/Vol]100 mmol/PIqg856 - 111 mmol/L Remisol ChemCO2 [Moles/Vol]26 mmol/PXbevyp37 - 31 mmol/LRemisol ChemCreatinine [Mass/Vol]1.5 mg/dLHigh0.5 - 1.3 mg/dLRemisol VjvyzANZ49 mL/min/1.73 m2Low >=59mL/min/1.73 h5Lcqstku ChemGlucose [Mass/Vol]330 mg/jKXpch35 - 199 mg/dL Remisol ChemPotassium [Moles/Vol]4.8 mmol/LNormal3.5 - 5.3 mmol/LRemisol Chem Sodium [Moles/Vol]134 mmol/PGfn661 - 145 mmol/LRemisol ChemUrea nitrogen [Mass/Vol]29 mg/dLHigh5 - 21 mg/dLRemisol ChemUrea nitrogen/Creatinine [Mass ratio]19 mg/lkBxzscz43 - 20Remisol ChemeGFRon 33-99-1490fYFQ88 mL/min/1.73 m2Low >=59Community Memorial HospitalComment on above:Order Comment: Order added by Discern Expert.Performed By: #### [id number] #### [facility] [address], [place] [address]Zlnovuvkpu Visit Summaryon 07-48-3250Ihwioxvyjc Visit Summary [facility] CampusPatient Educationon 86-34-7336Sobxnft Education [facility] CampusUrology Office/Clinic Noteon 80-43-4521Jvahppv Office/Clinic NoteNoKing's Daughters Medical Center OhioComment on above:Result Comment: Electronically Signed By: Taz THOMAS MD\.br\Date and Time Signed: 02/28/24 08:10 EDT\.br\Electronically Co-Signed By: Basia Claire\.br\Date and Time Co-Signed: 02/28/24 08:05 EDTAmbulatory Visit Summaryon 22-29-3359Hphmkrhblt Visit SummaryNoKing's Daughters Medical Center OhioPatient Educationon 62-02-2818Idhvcus EducationNoKing's Daughters Medical Center OhioUrology Office/Clinic Noteon 18-32-2950Veeiidl Office/Clinic NoteNoKing's Daughters Medical Center OhioComment on above:Result Comment: Electronically Signed By: BRYAN Bahena APRN, [place] X\.br\Date and Time Signed: 02/11/24 23:10 EDTAmbulatory Visit Summaryon 47-76-8989Grdxjedovr Visit [address], [address] [place] [address]- \.br\ Monday 10:45 AMEDT \.br\ With: Juany GALDAMEZ, Sukh Srinivasan\.br\ Where: [facility]\.br\ Medications\.br\ What How Much When Why Instructions\.br\ Unchanged acetaminophen-hydrocodone ([place] 325 mg-5 mg oral tablet) See instructions Take 1 hour prior to your procedure \.br\ Unchanged acetaminophen-tramadol (Ultracet 325 mg-37.5 mg Tab) See instructions take 1-2 every 6 hrs prn for pain - following procedure\.br\ Unchanged albuterol (Albuterol (Eqv-ProAir HFA) 90 mcg/ inh inhalation aerosol) 2 Puffs Inhalation Every 6 hours as needed for Wheezing\.br\ Unchanged albuterol (albuterol 0.083% Inh Harriet 3 mL) 3 Milliliter Inhalation Every 4 hours as needed for Shortness of breath or wheezing\.br\ Unchanged albuterol (Ventolin HFA 90 mcg/ inh Aerosol) 2 Puffs Inhalation Every 4 hours as needed for Shortnessof breath or wheezing\.br\ Unchanged atorvastatin (atorvastatin 40 mg Tab) 1 Tablets By Mouth Once a day (in the morning)\.br\ Unchanged budesonide-formoterol (Symbicort 160/ 4.5 inhalation aerosol with adapter) [...] SoloStar) 50 Units Subcutaneous At bedtime\.br\ Unchanged linagliptin-metFORMIN (Jentadueto 2.5 mg-1000 mg oral tablet) 1 Tablets By Mouth 2 times a day\.br\ Unchanged Misc Prescription (Pito estyle Sage 2 [place]) See instructions Use daily with sensor \.br\ Unchanged Misc Prescription (Freestyle Sage 2 Sensors) See instructions Apply one q 14 days \.br\ Unchanged Misc Prescription (Glucometer test strips) See instructions Test TID DX E11.40 on insulin \.br\ Unchanged Misc Prescription (Glucometer) See instructions Diabetes mellitus with neuropathy Dispense 1 Glucometer \.br\ Unchanged Misc Prescription (Insulin Pen [place] 31g x 8 mm) See instructions Use [...] reflux disease)\.br\ GERD - Gastro-esophageal reflux disease\.br\ Hyperlipidemia\.br\ Hypertension\.br\ Long-term insulin use\.br\ Low back pain\.br\ 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 mellitus\.br\ Morbid obesity\.br\ Onychomycosis\.br\ TC (obstructive sleep apnea)\.br\ PVD (pulmonary valve disease)\.br\ Renal cyst\.br\ Respiratory acidosis\.br\ Restless leg syndrome\.br\ T2DM (type 2 diabetes mellitus)\.br\ Type 2 diabetes mellitus\.br\ Type 2 diabetes mellitus with hyperglycemia\.br\ Type 2 diabetes mellitus with hyperlipidemia\.br\ Type 2 diabetes mellitus with morbid obesity\.br\ Type 2 diabetes mellitus with stage 3 chronic kidney disease\.br\ Urinary retention\.br\ Varicose veins of lower extremity\.br\ Historical - Any problem that you are no longer receiving treatment for.\.br\ Major depressive d isorder, severe\.br\ MRSA\.br\ Patient Survey\.br\ You may receive a survey via text or e-mail asking about your office visit. Please share your experience with us by completing your survey. We appreciate your feedback and thank you for choosing us for your care.\.br\ \.br\[facility] Consent for Procedure/Surgeryon 93-57-5666Xiuvegb for Procedure/Surgery [id number]#1.00TIFFNoKing's Daughters Medical Center OhioConsent for Treatmenton 20-59-1822Agjfloo for Treatment [id number]#1.00TIFFNoKing's Daughters Medical Center OhioInpatient Patient Summaryon 45-54-3876Htmglrlhw Patient SummaryNormal [facility] HospitalIntraOperative Documentson 48-01-7764DinnhVnzcxnacr Updvhrdi[id number]#1.00TIFFNoKing's Daughters Medical Center OhioMain OR Intraoperative Recordon 70-75-8507Yvcq OR Intraoperative RecordNormHenry County HospitalMain OR Preoperative Recordon 02-05-2024 Main OR Preoperative RecordNoKing's Daughters Medical Center OhioOperative Reporton 74-24-3432Ymctfvbws ReportNoKing's Daughters Medical Center OhioComment on above: Result Comment: Electronically Signed By: Taz THOMAS MD\.br\Date and Time Signed: 02/05/24 13:27 EDTOutpatient Surgery Discharge Instructionon 02-05-2024 Outpatient Surgery Discharge Instruction [id number]#1.00TIFKettering HealthOutpatient Surgery Discharge InstructionNoKing's Daughters Medical Center Ohio Patient Educationon 17-94-1416Cvgfffj EducationWayne HealthCare Main Campus Insurance Correspondenceon 87-94-9908Nuyfmonos Correspondence [id number]#1.00TIFKettering HealthMulti-Wound Charton 22-17-2618Wqlrc-Wound Chart 1[id number]#1.00TIFKettering HealthNursing Note - Woundon 74-64-9414Icsexog Note - Wound 159.140.124.25.69319156660345486821683501#1.00TIFKettering HealthConsent for Treatmenton 37-47-7228Buvsblq for Treatment 159.[id number]#1.00TIFKettering HealthNursing Assessment - Woundon 96-82-0599Wuyncld Assessment - Wound 159.140.124.25.02546682265872265196608975#1.00TIFKettering HealthPhysician Orderon 13-98-6313Txedphnwx Order [id number]#1.00TIFKettering HealthPrescriptions/Work Noteson 31-80-1083Apibuboocalov/Work Notes 170.71.121.81.549414382544889593047663266#1.00TIFKettering HealthProcedure - Woundon 87-02-6340Pyfdknwty - Wound 159.140.124.25.72222522714585833657915520#1.00TIFKettering HealthProgress Note - Woundon 59-18-7614Bfhlufmr Note - Wound 159.1[id number]#1.00TIFKettering HealthInsurance Correspondenceon 39-90-6920Mhbfsvoac Correspondence [id number]#1.00TIFKettering HealthNursing Note - Woundon 26-37-7442Buejfqz Note - Wound 159.140.124.25.18162376654847999175252489#1.00TIFKettering HealthPhysician Orderon 75-62-2095Tdhljvktv Order 15[id number]#1.00TIFKettering HealthProcedure - Woundon 57-46-5228Aqowwaach - Wound 159.140.124.25.97047863665128993962859241#1.00[facility] HospitalProgress Note - Woundon 84-49-2280Gfxhyfyy Note - Wound 159.140.124.25.14818384323258427007535773#1.00TIFKettering HealthConsent for Procedure/Surgeryon 06-55-9344Dyolbfx for Procedure/Surgery 170.71.121.75.438458762347550954391925672#1.00TIFKettering HealthConsent for Procedure/Surgery 170.71.121.75.329788144406554311028513315#1.00TIFKettering HealthConsent for Treatmenton 76-28-7663Qnozgir for Treatment 159.140.128.34.656198089670717982858904L#1.00TIFKettering HealthMulti-Wound Charton 68-24-8965Nlrmh-Wound Chart 159.140.124.25.51577968582191188220783228#1.00TIFAllisonKing's Daughters Medical Center OhioNursing Assessment - Woundon 31-83-9161Kxkdlwy Assessment - Wound 159.140.124.25.85867954809337831434232006#1.00TIFFAdena Fayette Medical Center CenterED Note-Physicianon 08-95-1237HM Note-PhysicianWayne HealthCare Main CampusComment on above:Result Comment: Electronically Signed By: Kaley Phan PA-C\.br\Date and Time Signed: 01/14/2417:05 EDT\.br\Electronically Co- Signed By: Nicole Myers DO\.br\Date and Time Co-Signed: 01/16/24 09:03 EDT Consent for Treatmenton 20-54-4598Vvnsizw for Treatment 159.140.128.34.38131279817037256209137GU#1.00TIFKettering HealthDischarge Instructionson 60-70-5051Rntcyqkvf Instructions 170.71.121.79.86088420479911263456319515#1.00TIFFostoria City Hospital Clinical Summaryon 36-57-8047RP Clinical SummaryNoKind[facility] Patient Education Noteon 56-47-3878YP Patient Education Note [facility] Patient Summaryon 23-17-2951KC Patient SummaryNoKing's Daughters Medical Center OhioAmbulatory Visit Summaryon 01-12-2024 Ambulatory Visit SummaryNoKing's Daughters Medical Center OhioConsent for Procedure/Surgeryon 71-33-5818Rzyqjdw for Procedure/Surgery 170.71.121.88.132132402396104780878500874#1.00TIFKettering HealthConsent for Treatmenton 88-99-2122Jzywydb for Treatment 159.140.128.34.88828713968313458376294Z2#1.00TIFFWayne HealthCare Main CampusMulti-Wound Charton 70-28-5281Vladf-Wound Chart 159.140.124.25.68971172208436078086969138#1.00TIFKettering HealthNursing Assessment - Woundon 02-42-4915Qgckdeq Assessment - Wound 159.140.124.25.84015653139277515177710319#1.00TIFKettering HealthNursing Note - Woundon 12-13-5420Uweuwlb Note - Wound 159.140.124.25.75445960146977171765761897#1.00TIFKettering HealthPhysician Orderon 31-88-5724Jtcyauadq Order 159.14[id number]#1.00TIFKettering HealthProcedure - Woundon 71-17-5437Afyejthcq - Wound 159.140.124.25.80364316590204099693932460#1.00TIFKettering HealthProgress Note - Woundon 83-83-4059Otybzard Note - Wound 159.140.124.25.98500717631563028151879971#1.00TIFKettering HealthConsent for Procedure/Surgeryon 15-96-2875Eqkbibg for Procedure/Surgery 149.45.122.5.395486730360313217391530335#1.00TIFKettering HealthConsent for Procedure/Surgery 149.45.122.5.883428873072654495279429479#1.00TIFKettering HealthConsent for Treatmenton 60-83-0096Coivnpc for Treatment 15[id number]#1.00TIFKettering HealthMulti-Wound Charton 49-31-6812Wqpzn-Wound Chart 159.140.124.25.52874436138954434117512153#1.00TIFKettering HealthNursing Assessment - Woundon 58-44-6606Znzblnq Assessment - Wound 159.14[id number]#1.00TIFKettering HealthNursing Note - Woundon 50-31-4450Cbqscfb Note - Wound 159.140.124.25.41819127366165275843963487#1.00TIFKettering HealthPhysician Orderon 69-15-9166Jsolyrtgi Order [id number]#1.00TIFKettering HealthProcedure - Woundon 38-47-2336Dlrkzoofq - Wound 159.140.124.25.33526128925871765372429090#1.00TIFKettering HealthProgress Note - Woundon 57-20-0138Sguprkhp Note - Wound 159.140.124.25.25638359779614587423367012#1.00[facility] County Community HospitalNursing Note - Woundon 74-36-4019Bfzbisj Note - Wound 159.140.124.25.51405455584711239965511571#1.00TIFKettering HealthPhysician Orderon 74-25-7807Kfkoohkog Order [id number]#1.00TIFKettering HealthProcedure - Woundon 89-39-5084Cnuaisout - Wound 159.140.124.25.19413039648817510036030551#1.00TIFKettering HealthProgress Note - Woundon 75-30-9135Dfcjcidu Note - Wound 159.140.124.25.81740482208424852702747471#1.00TIFKettering HealthConsent for Procedure/Surgeryon 57-77-6001[place] for Procedure/Surgery 170.71.121.80.935822072572045125724770373#1.00TIFKettering HealthConsent for Treatmenton 18-54-9379Ynrnrxt for Treatment 159.140.128.34.5731657466992804974205527#1.00TIFKettering HealthMulti-Wound Charton 45-53-9460Qhpxn-Wound Chart 15[id number]#1.00TIFKettering HealthNursing Assessment - Woundon 69-87-4613Isdodhy Assessment - Wound 159.140.124.25.23494124007217717728265094#1.00TIFKettering HealthAmbulatory Visit Summaryon 56-46-5510Fxwfostqza Visit SummaryNoKing's Daughters Medical Center OhioConsent for Procedure/Surgeryon 93-01-2602Lwlnbif for Procedure/Mdzdkra572.45.122.20.466312202216958374378825353#1.00TIFKettering HealthConsent for Treatmenton 45-88-5262Nbkzvke for Treatment 159.140.128.34.617625516063294961826461P#1.00TIFKettering HealthMulti-Wound Charton 99-11-8244Smlyf-Wound Chart 170.[id number]#1.00TIFKettering HealthNursing Assessment - Woundon 57-69-0401Sgnijel Assessment - Wound 17[id number]#1.00TIFKettering HealthNursing Note - Woundon 87-99-9885Uwababe Note - Wound 170.71.121.117.28654460917606025162331823#1.00TIFKettering HealthPhysician Orderon 80-24-3398Whyvffbfa Order 170.[id number]#1.00TIFKettering HealthProcedure - Woundon 63-36-4977Wueamwrgr - Wound 170.7[id number]#1.00[facility] Community HospitalProgress Note - Woundon 88-49-4214Ziptohzl Note - Wound 170.71.121.117.56629756088887047543641447#1.00TIFFNormCentral Harnett Hospitaler Johns Hopkins HospitalConsenton 68-17-1100Dhdyvpz 14[id number]#1.00TIFFNormHenry County HospitalConsent for Procedure/Surgeryon 55-12-0659Fpcwgcn for Procedure/Surgery 170.7[id number]#1.00TIFFNormHenry County HospitalConsent for Treatmenton 29-63-9070Vynymmq for Treatment 170.71.[id number]#1.00TIFFWayne HealthCare Main CampusIntraOperative Documentson 48-11-0386DlbedTszbvzycj Documents [id number]#1.00TIFFWayne HealthCare Main CampusIntraOperative Sotsvznc[id number]#1.00TIFF [facility] Main CampusMain OR Intraoperative Recordon 74-39-9092Zysk OR Intraoperative RecordWayne HealthCare Main CampusMain OR Preoperative Recordon 61-44-5853Plck OR Preoperative RecordWayne HealthCare Main Campus Operative Reporton 50-35-3437Nrhxrhdrh ReportWayne HealthCare Main Campus Comment on above:Result Comment: Electronically Signed By: Taz THOMAS MD.br\Date and Time Signed: 11/20/23 13:26 EDTProgress Note-Physicianon 95-04-7218Bhoumyrg Note-PhysicianWayne HealthCare Main CampusComment on above:Result Comment: Electronically Signed By: Taz THOMAS MD.br\Date and Time Signed: 11/20/23 13:30 EDTC Blood Charcoalon 42-49-6486Omkzq Culture Memorial HospitalComment on above:Performed By: #### [id number] ####[facility] [address] [place], [place] [address]Woeuv Culture CharcoalWayne HealthCare Main CampusComment on above: Performed By: #### [id number] ####[facility] [address] [place], [place] [address]Obekdddvd Auto (Bld) [#/Vol]Ordered By: Manish Fu on 23-82-7159Hzywjgnoz (Bld) [#/Vol]0.0 10*3/uL0.0-0.2FCherrington HospitalBasophils/100 WBC Auto (Bld)Ordered By: Mnaish Fu on 65-27-6257Qwxxmyyjj/100 WBC (Bld)0.7 %.[facility] Geauga Medical CenterCalcium [Mass/volume] in Serum or PlasmaOrdered By: Manish Doameaurora sinai [facility] [place] on 03-79-8671Anfxegq [Mass/Vol]9.3 mg/dL8.6-10.3FCherrington Hospital Carbon dioxide, total [Moles/volume] in Serum or PlasmaOrdered By: Manish Chaseaurora sinai medical center– [place] on 38-71-2407DZ6 [Moles/Vol]41.4 mmol/L21.0-31.0[facility]aug[facility] Medical CenterChloride [Moles/volume] in Serum or PlasmaOrdered By: Manish [facility] on 72-19-5609Pcmfptdd [Moles/Vol]102 mmol/T68-349HcfvninokUniversity Hospitals Geauga Medical CenterCreatinine [Mass/volume] in Serum or PlasmaOrdered By: Manish Dovalley hospital on 94-04-3582Xraqywwkyh [Mass/Vol]1.47 mg/dL0.70-1.30[facility] Geauga Medical CenterEosinophils Auto (Bld) [#/Vol]Ordered By: Manish Starkla on 67-01-6927Rdizolygeci (Bld) [#/Vol]0.3 10*3/uL0.0-0.45[facility] Geauga Medical CenterEosinophils/100 WBC Auto (Bld)Ordered By: Manish Starkla on 41-84-9363Iytjqqrlwor/100 WBC (Bld)5.6 %.[facility] Geauga Medical CenterErythrocyte distribution width Auto (RBC) [Ratio]Ordered By: Manish Fu on 50-16-5981Gwlclvugizc distribution width (RBC) [Ratio]18.4 % 12.0-14.8[facility] Geauga Medical CenterGlucose Glucometer (BldC) [Mass/Vol] Ordered By: Manish Fu on 94-34-3698Ynipjpk [Mass/Vol]165 mg/dL [facility] Geauga Medical CenterComment on above:Random Glucose Reference Range is dependent on time and content of last meal. Glucose of more than 200 mg/dL in a nonstressed, ambulatory subject supports the diagnosis of Diabetes Mellitus.Glucose [Mass/volume] in Serum or PlasmaOrdered By: Manish Fu on 58-88-0809Fdmzjdi [Mass/Vol]114 mg/jY91-077OgdrktnnmUniversity Hospitals Geauga Medical Center Comment on above:ADA recommended reference rangeRandom Glucose Reference Range is dependent on time and content of last meal. Glucose of more than 200 mg/dL in a nonstressed, ambulatory subject supports the diagnosisof Diabetes Mellitus. Hematocrit Auto (Bld) [Volume fraction]Ordered By: Manish uF on 61-96-3501Zeukpxuxeh (Bld) [Volume fraction]39.5 %38.8-50.0[facility] CenterHemoglobin [Mass/volume] in BloodOrdered By: Manish Fu on 63-70-9850Qywgjdmdlr (Bld) [Mass/Vol]12.3 g/dL13.0-17.0[facility] CenterLeukocytes [#/volume] corrected for nucleated erythrocytes in Blood by Automated counOrdered By: Manish Fu on 34-00-3210TWE corrected for nucl RBC Auto (Bld) [#/Vol]6.0 10*3/uL4.1-10.5FCherrington HospitalLymphocytes Auto (Bld) [#/Vol]Ordered By: Manish Fu on 45-84-4008Lflpwpidtjm (Bld) [#/Vol]1.3 10*3/uL1.00-4.8[facility] CenterLymphocytes/100 WBC Auto (Bld)Ordered By: Manish Fu on 13-28-3695Bpivypftdgh/100 WBC (Bld)21.7 %.[facility] CenterMCH Auto (RBC) [Entitic mass]Ordered By: Manish Fu on 83-39-2367XUM (RBC) [Entitic mass]26.0 pg27.5-35.2FCherrington HospitalMCHC Auto (RBC) [Mass/Vol]Ordered By: Manish Fu on 16-71-7656OSFK (RBC) [Mass/Vol]31.2 g/dL32.5-35.6FCherrington HospitalMCV Auto (RBC) [Entitic vol] Ordered By: Manish Fu on 95-74-6015LRH (RBC) [Entitic vol]83.4 fL 83.5-101[facility] CenterMonocytes Auto (Bld) [#/Vol]Ordered By: Manish Fu on 74-95-5149Zffverqom (Bld) [#/Vol]0.6 10*3/uL0.0-0.8 [facility] CenterMonocytes/100 WBC Auto (Bld)Ordered By: Manish Fu on 30-39-8665Kycsdqoro/100 WBC (Bld)10.4 %.[facility] CenterNeutrophils Auto (Bld) [#/Vol]Ordered By: Manish Fu on 98-38-5897Cvqenynrmnx (Bld) [#/Vol]3.7 10*3/uL1.8-7.7FCherrington HospitalNeutrophils/100 WBC Auto (Bld)Ordered By: Manish Fu on 12-54-1327Dxigbfwurxf/100 WBC (Bld)61.6 %.[facility] CenterNo Panel InformationOrdered By: Manish Fu on 11-17-2023 Estimated GFR (CKD-EPI)52.934 mL/MinUniversity Hospitals Geauga Medical CenterPharmacy Creatinine Clearance (Chem70.70[facility] CenterNucleated erythrocytes [Presence] in Blood by Automated countOrdered By: Manish Fu on 57-76-9586Bczdyjvol RBC Auto Ql (Bld)0.1 /100{WBC}0-0.5FCherrington HospitalPlatelet mean volume Auto (Bld) [Entitic vol]Ordered By: Manish Fu on 89-38-7827Nefawbhw mean volume (Bld) [Entitic vol]6.8 fL 6.6-10.1FCherrington HospitalPlatelets Auto (Bld) [#/Vol]Ordered By: Manish Fu on 37-21-6260Ggffrpuho (Bld) [#/Vol]248 10*3/rX877-059 [facility] CenterPotassium [Moles/volume] in Serum or Plasma Ordered By: Manish Fu on 74-99-6262Nvdoneopy [Moles/Vol]4.5 mmol/L 3.5-5.1FCherrington HospitalRBC Auto (Bld) [#/Vol]Ordered By: Manish Fu on 31-55-0978YTA (Bld) [#/Vol]4.73 10*6/uL3.90-5.60[facility]ittman Hospitalerum or plasma anion gap determinationOrdered By: Manish Fu on 73-67-2868Sssiv gap [Moles/Vol]10.1 mmol/L6.0-15.0 [facility]ittman Hospitalodium [Moles/volume] in Serum or PlasmaOrdered By: Manish Fu on 76-05-6609Pghzov [Moles/Vol]149 mmol/P067-195 [facility] CenterUrea nitrogen [Mass/volume] in Serum or Plasma Ordered By: Manish Fu on 27-93-0068Smcf nitrogen [Mass/Vol]44 mg/dL 7-25[facility] CenterWBC Auto (Bld) [#/Vol]Ordered By: Manish Fu on 54-91-6539PEY (Bld) [#/Vol]6.0 10*3/uL4.1-10.5FCherrington HospitalAdmission Noteon 04-09-8471Fmwrdqczp Note [id number]#1.00TIFFNormalCommunity Memorial HospitalNo Panel InformationOrdered By: Manish Fu on 10-55-5173Zlzldvd Glucose CommentGlu2: cleaned meterUniversity Hospitals Geauga Medical CenterAdmission Noteon 37-93-3118Gnlilpndv [id number]#1.00TIFF NormalCommunity Memorial HospitalLaboratory - Chemistry and Chemistry - challengeOrdered By: Manish Fu on 01-46-5499FG3 [Moles/Vol]34.8 mmol/L 23.0-27.0[facility] Medical CenterHCO3 (Bld) [Moles/Vol]32.6 mmol/L 23.0-29.0[facility] CenterMagnesium [Mass/volume] in Serum or PlasmaOrdered By: Manish Fu on 15-79-0946Iiyexrnxd [Mass/Vol]2.3 mg/dL 1.9-2.7FCherrington HospitalNo Panel InformationOrdered By: Manish Fu on 83-25-7052Ihmhewln Blood Base Excess3.8 mmol/L-3.0-3.0 [facility] CenterArterial Blood Oxygen Content8.0 mmol/L6.6-9.7 [facility] CenterArterial Blood Oxygen Iorlefshea67.1 % 95.0-100.0[facility] CenterArterial Blood Partial Pressure CO2 70.1 mm[Hg]35.0-45.0[facility] CenterArterial Blood Partial Pressure O273.0 mm[Hg]80.0-100.0[facility] CenterArterial Blood pH7.297.35-7.45[facility] CenterBlood Gas Critical ValueSee commentUniversity Hospitals Geauga Medical CenterComment on above:Critical Value called on: 11/15/2023 at 12:53Blood Gas Sample SiteRight radialUniversity Hospitals Geauga Medical CenterFiO244 %[facility] CenterOxygen Delivery Device Nasal cannulaUniversity Hospitals Geauga Medical CenterAlanine aminotransferase [Enzymatic activity/volume] in Serum or PlasmaOrdered By: Manish Fu on 34-23-6095NOM [Catalytic activity/Vol]14 U/L7-52[facility] CenterAlbumin [Mass/volume] in Serum or Plasma by Bromocresol green (BCG) dye binding methoOrdered By: Manish Fu on 06-59-2109Dimslit BCG dye [Mass/Vol]3.2 g/dL3.5-5.7FCherrington HospitalAlkaline phosphatase [Enzymatic activity/volume] in Serum or PlasmaOrdered By: Manish Fu on 80-82-4220ODD [Catalytic activity/Vol]92 U/P35-579FnbjkimtfUniversity Hospitals Geauga Medical CenterAspartate aminotransferase [Enzymatic activity/volume] in Serum or Plasma Ordered By: Manish Fu on 37-78-9968MCT [Catalytic activity/Vol]10 U/L 13-39[facility] CenterBilirubin.total [Mass/volume] in Serum or PlasmaOrdered By: Manish Fu on 57-29-8569Lndmizijn [Mass/Vol]0.6 mg/dL 0.3-1.0[facility] CenterGlobulin Calc (S) [Mass/Vol]Ordered By: Manish Fu on 99-71-2218Bxycojor (S) [Mass/Vol]2.8 g/dLUniversity Hospitals Geauga Medical CenterProtein [Mass/volume] in Serum or PlasmaOrdered By: Manish Fu on 30-11-4422Xbrkwdp [Mass/Vol]6.0 g/dL6.4-8.9[facility]ittman Hospitalerum or plasma albumin/globulin mass ratioOrdered By: Manish Fu on 84-09-1363Smvvmzc/Globulin [Mass ratio]1.1 {ratio} [facility] CenterC Urineon 97-83-3173Llzxfuep identified Cx Nom (U)NormalFisher Johns Hopkins HospitalComment on above:Performed By: #### [id number], [id number] ####[facility] [address] [place], [place] [address]Oblmzhcoe erythrocytes count in urine sediment (number/area)Ordered By: Tera Nevarez on 84-61-9115SDY Auto (Urine sed) [#/Area]Innumerable [HPF]0-4 [facility] CenterAutomated leukocytes count in urine sediment (number/area)Ordered By: Tera Nevarez on 63-92-5005NJK Auto (Urine sed) [#/Area] 50-100 [HPF]0-4FCherrington HospitalAutomated urine hyaline casts count (number/volume)Ordered By: Tera Nevarez on 11-98-5162Mxwuzhd casts Auto (U) [#/Vol]0-8 [LPF]0-1FCherrington HospitalBMPon 00-76-0452Cxsph gap [Moles/Vol]18 mmol/LHigh6-16Community Memorial HospitalComment on above: Performed By: #### 8263450, 2899655, 36514071, 67708339, 36847002, 29111804, 9224760 ####[facility] [address] [place], [place] [address]Ezhwrmy [Mass/Vol]8.8 mg/dLLow8.9-11.1FUniversity Hospitals Portage Medical CenterComment on above:Performed By: #### 1036461, 5215675, 65512220, 28572719, 53340882, 19245873, 9185371 ####[facility] [address]NFrank[place], [place] [address]Fooqxeyi [Moles/Vol]95 mmol/CKvh122-298VuishgCommunity Memorial HospitalComment on above:Performed By: #### 0794963, 8243089, 80601664, 23649395, 62222964, 62713863, 3048058 ####[facility] Ivbnbgyxxd[address] Greenbush AveNmt. sinai hospitalkOREG[place], [place] [address]YR5 [Moles/Vol]24 mmol/YDyynhf54-39ZqfdcgCommunity Memorial HospitalComment on above:Performed By: #### 7776498, 0596155, 00513175, 88147295, 88434247, 50214218, 5448871 ####[facility] Ozkulszh[address]NFrank[place], [place] [address]Tdmynojfyt [Mass/Vol]4.9 mg/dLHigh 0.5-1.3FUniversity Hospitals Portage Medical CenterComment on above:Performed By: #### 3978476, 5778934, 58363053, 72104689, 82269941, 19647274, 7142108 ####[facility] [address] [place], [place] [address]Jjmoydv [Mass/Vol]311 mg/uIVjsc64-691KpgfhqCommunity Memorial HospitalComment on above:Performed By: #### 5928895, 9816528, 28545321, 09510375, 08240977, 99479420, 4163571 ####[facility] [address] [place] [address]Hlbvkesqm [Moles/Vol]5.3 mmol/LNormal3.5-5.3FUniversity Hospitals Portage Medical CenterComment on above: Performed By: #### 9227095, 3636389, 66923000, 70668473, 08836427, 97138294, 6075278 ####[address] [address]Oznbyp [Moles/Vol]132 mmol/RYtv998-628LmwvguCommunity Memorial HospitalComment on above:Performed By: #### 3300614, 2407739, 77103565, 20300994, 78273769, 73545270, 1692619 ####[address] [address]Aggp nitrogen [Mass/Vol]76 mg/dLHigh5-21Community Memorial HospitalComment on above:Performed By: #### 2996698, 4110002, 42840396, 15691653, 08183921, 45954488, 7600483 ####[address] [address]Gdnw nitrogen/Creatinine [Mass ratio]16 No Units Cwowar92-97XcrmdxCommunity Memorial HospitalComment on above:Performed By: #### 7691580, 0262822, 86296189, 43582538, 70599044, 81163274, 4573749 ####[facility] [address] [place] [address] [place] [address]GLEaz 11-11-2023 Natriuretic peptide B (Bld) [Mass/Vol]99 pg/mLHigh5-80Community Memorial HospitalComment on above:Performed By: #### 8979070, 6919671, 43541029, 32357861, 96342993, 02036614, 2931554 ####[facility] [address] [place], [place] [address]Mqxtcgkpj Test strip Ql (U)Ordered By: Tera Nevarez on 69-37-8746Phfaalviw Ql (U)NegativeNegativeUniversity Hospitals Geauga Medical Center Blood Gas Art, with Lytes, Gluc, [place] 4a/A Ratio Art26.50 %Normal >=0.80Community Memorial HospitalComment on above:Performed By: #### [id number] ####[address] [address]VvYB8 Sbu549.8 mmHgHigh5.0-15.0Community Memorial HospitalComment on above:Performed By: #### [id number] ####[address] [address]Zebanl TestPositiveNormalCommunity Memorial HospitalComment on above:Performed By: #### [id number] ####[address] [address]Dvpf Excess Arterial-2.4 mmol/LLow >=2.8Community Memorial HospitalComment on above:Performed By: #### [id number] ####[facility] [address] [place], [place] [address]vSk1+ Art4.70 mg/dLNormal4.40-5.30Community [facility] HospitalComment on above: Performed By: #### [id number] ####[facility] [address] [place] [address]nIy- Art97.0 mmol/YXyy108.0-111.0Community Memorial HospitalComment on above:Performed By: #### [id number] ####[address] [address]dKjt Cwn454 mg/dLHigh 55-99Community Memorial HospitalComment on above:Performed By: #### [id number] ####[address] [address]xW+ Art5.5 mmol/LHigh3.5-5.3FUniversity Hospitals Portage Medical CenterComment on above:Performed By: #### [id number] ####[address] [address]wIpq Art1.0 mmol/LNormal.5-2.2FUniversity Hospitals Portage Medical Center Comment on above:Performed By: #### [id number] ####[address] [address]uXk+ Gsc630.0 mmol/ABgyjcv829.0-145.0 [facility] HospitalComment on above:Performed By: #### [id number] ####[address] [address] DeviceCannulaNormalCommunity Memorial HospitalComment on above:Performed By: #### [id number] ####[address] [address]Imvdd bystacia schneiteInvalid Interpretation Providence HospitalComment on above:Performed By: #### [id number] ####[address] [address]WEUAj Art1.9 % Normal1.5-4.9[facility] HospitalComment on above:Result Comment: Reference rangeNonsmoker <1.5%Smoker <5.0%Heavy Smoker <9.0%Performed By: #### [id number] ####[address] [address]TDY5 LS34Mbxvbef Interpretation [facility] HospitalComment on above:Performed By: #### [id number] ####[address] [address]LNcuZb Art0.1 %Normal0.0-1.9[facility] HospitalComment on above:Performed By: #### [id number] ####[address] [address]KT9Jk Art86.9 %Low93.0-100.0 [facility] HospitalComment on above:Performed By: #### [id number] ####[address] [address]ZIW4 (Bld) [Moles/Vol]22.2 mmol/ZJftovb46.0-26.0Community Memorial HospitalComment on above:Performed By: #### [id number] ####[address] [address]Kajdoogtwu (Bld) [Mass/Vol]12.8 g/dL Hyyvnr66.0-17.0Community Memorial HospitalComment on above:Performed By: #### 640961695 ####[address] [address]Uuvuom saturation in Blood88.7 %Low95.0-100.0[facility] Comment on above:Performed By: #### [id number] ####[address] [address]O CO2 Cyejmige45.0 smHzPrmi70.0-45.0 [facility] HospitalComment on above:Performed By: #### [id number] ####[address] [address]H O2 Jkewbzqs55.8 qbZmBvf47.0-100.0[facility] Memorial HospitalComment on above: Performed By: #### [id number] ####[address] [address]wQ Arterial7.270Odq7.350-7.450Community Memorial HospitalComment on above:Performed By: #### 500265422 ####[address] [address]Hlxgnt SiteR RadialNormal Community [facility] HospitalComment on above:Performed By: #### [id number] ####[address] [address] Sample TypeArterial DrawNormalFishBrandenburg CenterComment on above: Performed By: #### [id number] ####[address] [address]MPR w/ Auto Diffon 12-94-4827Qunbuddao/100 WBC (Bld)0.5 %Normal0.0-2.0[facility] Memorial HospitalComment on above:Performed By: #### 7609682, 8449805, 18715981, 10871687, 06204072, 84804209, 2367244 ####[address] [address] Basophils/Leukocytes Auto (Bld) [Pure # fraction]0.0 E9/LNormal0.0-0.2FUniversity Hospitals Portage Medical CenterComment on above:Performed By: #### 2959231, 9066244, 88782719, 96397649, 51217455, 16276768, 3727871 ####[address] [address]Ousvgyqiptw (Bld) [#/Vol]0.2 E9/L Normal0.0-0.5FUniversity Hospitals Portage Medical CenterComment on above:Performed By: #### 4773846, 1449327, 07522292, 12236345, 38978056, 20613403, 8211470 ####[address] [address]Ftorbbdnjdg/100 WBC (Bld)1.9 %Normal0.0-8.0Community Memorial HospitalComment on above:Performed By: #### 8229390, 4964520, 91473277, 31583379, 86028111, 59448581, 5012448 ####[address] [place] [address] Erythrocyte distribution width (RBC) [Ratio]18.6 %High10.9-14.2FUniversity Hospitals Portage Medical CenterComment on above:Performed By: #### 1155943, 2360974, 69929344, 51979828, 21290900, 49883179, 5071059 ####[address] [place], [place] [address]Uogbycuxmd (Bld) [Volume fraction] 41.9 %Jlqgff38.7-49.0Community Memorial HospitalComment on above:Performed By: #### 7742004, 7778693, 25028597, 30303143, 51738922, 91969045, 9423699 ####[address] [address] Hemoglobin (Bld) [Mass/Vol]12.8 g/dLLow13.5-17.5FUniversity Hospitals Portage Medical Center Comment on above:Performed By: #### 0608869, 9221860, 01734345, 21176859, 15247843, 89904420, 6626963 ####[address] [address]Vrreeerzffk (Bld) [#/Vol]0.8 E9/LLow1.0-4.0[facility] HospitalComment on above:Performed By: #### 2914897, 6202862, 50078536, 49630290, 93448176, 68618663, 2409353 ####[address] [address]Sdarzattypr/100 WBC (Bld)9.1 %Low 14.0-50.0Community Memorial HospitalComment on above:Performed By: #### 6532407, 3842991, 85577141, 67857252, 48359415, 57723268, 4643323 ####[address], [place] [address]YQH (RBC) [Entitic mass]26.4 pgLow27.0-34.0[facility] Memorial HospitalComment on above:Performed By: #### 6483694, 3915374, 94752810, 69339315, 95213274, 26612754, 6557696 ####[address] [address]GBWM (RBC) [Mass/Vol]30.6 g/dLLow31.4-36.0[facility] HospitalComment on above:Performed By: #### 3509632, 7241095, 88555764, 09628305, 07303572, 30797658, 2890797 ####[address] [address]QWV (RBC) [Entitic vol]86.3 zOJnptnp95.0-100.0[facility] HospitalComment on above:Performed By: #### 8043005, 3895224, 84536378, 56374446, 41735099, 47614842, 0154634 ####[address] [address]Gdmmrgdcm (Bld) [#/Vol]0.5 E9/LNormal 0.2-1.0[facility] HospitalComment on above:Performed By: #### 1742547, 9920486, 44287543, 13218929, 53123395, 41883659, 1332059 ####[address] [address]Zqiipykkssx (Bld) [#/Vol]7.0 E9/LNormal2.0-7.5FUniversity Hospitals Portage Medical CenterComment on above: Performed By: #### 4729405, 4738461, 07422015, 01835513, 14562659, 63713498, 6937277 ####[address] [address]Ikzpxloabct/100 WBC (Bld)82.2 %High36.0-75.0[facility] Comment on above:Performed By: #### 0639743, 3440409, 66485228, 11779407, 95267611, 27661065, 8416684 ####[facility] [address] [place], [place] [address]Bmoisctp137.0 E9/ULvybhq029.0-500.0[facility] HospitalComment on above:Performed By: #### 9834581, 9440588, 22101283, 61005316, 76031661, 88028507, 7446210 ####[facility] [address] [place], [place] [address]Uwzzhtfs mean volume (Bld) [Entitic vol]6.9 fLNormal6.4-10.8[facility] HospitalComment on above:Performed By: #### 3482865, 9021930, 50972878, 62365539, 13564806, 19568066, 9553951 ####[facility] [address] [place] [address]KNE (Bld) [#/Vol]4.9 E12/LNormal4.3-5.9[facility] HospitalComment on above: Performed By: #### 3518964, 8216064, 21541995, 23108901, 64834039, 72469240, 4998998 ####[address] [address]IUC corrected for nucl RBC Auto (Bld) [#/Vol]8.5 E9/LNormal4.0-11.0[facility] HospitalComment on above:Performed By: #### 5408870, 5936140, 92605735, 14980989, 44492883, 82013295, 7122626 ####[facility] [address] [place], [place] [address]HOAIADATYOpumgot By: SYSTEM SYSTEM on 82-47-0332Gpocpndx01.90 pg/mLLow15.90 - 38.40 pg/mLRemisol ChemComment on above:Interpretive Data: The 95% CI (Confidence Interval) PPV (Positive Predictive Value) for myocardial infarction in females is 38 pg/mL, in males 51 pg/mL. The results should be used in conjunction withclinical conditions of myocardial infarction. (Access High Sensitivity Troponin I Instructions For Use, [employer], March 2018)Lqrhqwga15.60 pg/mLLow15.90 - 38.40 pg/mLRemisol ChemComment on above:Interpretive Data: The 95% CI (Confidence Interval) PPV (Positive Predictive Value) for myocardial infarction in females is 38 pg/mL, in males 51 pg/mL. The results should be used in conjunction withclinical conditions of myocardial infarction. (Access High Sensitivity Troponin I Instructions For Use, [employer], March 2018)Anion gap [Moles/Vol]18 mmol/LHigh6 - 16 mEq/LRemisol ChemCalcium [Mass/Vol]8.8 mg/dLLow8.9 - 11.1 mg/dLRemisol ChemChloride [Moles/Vol]95 mmol/L Jfm257 - 111 mmol/LRemisol ChemCO2 [Moles/Vol]24 mmol/DAtegff34 - 31 mmol/L Remisol ChemCreatinine [Mass/Vol]4.9 mg/dLHigh0.5 - 1.3 mg/dLRemisol TkyhwEKW82 mL/min/1.73 m2Low>=59mL/min/1.73 e3Quopobx ChemGlucose [Mass/Vol]311 mg/fSQvlp69 - 199 mg/dLRemisol ChemLactic Acid Lvl1.5 mmol/LNormal0.5 - 2.2 mmol/LRemisol ChemPotassium [Moles/Vol]5.3 mmol/LNormal3.5 - 5.3 mmol/LRemisol ChemSodium [Moles/Vol]132 mmol/XGec015 - 145 mmol/LRemisol AjfuMxohhssi59.40 pg/mLLow15.90 - 38.40 pg/mLRemisol ChemComment on above:Interpretive Data: The 95% CI (Confidence Interval) PPV (Positive Predictive Value) for myocardial infarction in females is 38 pg/mL, in males 51 pg/mL. The results should be used in conjunction withclinical conditions of myocardial infarction. (Access High Sensitivity Troponin I Instructions For Use, [employer] [place], March 2018)Urea nitrogen [Mass/Vol]76 mg/dLHigh5 - 21 mg/dLRemisol ChemUrea nitrogen/Creatinine [Mass ratio]16 mg/ahFtmcua76 - 20Remisol ChemCHEMISTRY Ordered By: Deacon Marcano on 40-11-5129Rwhuzcdmfma peptide B (Bld) [Mass/Vol]99 pg/mLHigh5 - 80 pg/mLDUNCAN [facility] [place] HemeManSSCOAGULATIONOrdered By: Hudson Schmidt on 72-89-0586bHBS Coag (PPP) [Time]36.5 fJtyoke03.1 - 36.5 second(s)[facility] Auto Coag Comment on above:Interpretive Data: Parameter 15 days - 4 weeks 1 - [...] the same coagulation reagent and instrumentation as [facility]. Currently there are no coagulation studies available worldwide for children to 14 days, andno normal ranges. Heparin therapeutic range (represented by Anti-Factor Xa activity of 0.2 - 0.4 U/mL) corresponds to PTT of 56.6 - 109.0 sec.INR Coag (PPP) [Relative time]0.94 {INR}Invalid Interpretation CodeDUNCAN REGIONAL HOSP[facility] [place] Auto CoagComment on above:Interpretive Data: INR results are specifically intended to assess patients stabilized on long-term Anticoagulation therapy suggested INR s Less Intensive Anticoagulation 2.0 3.0 Conventional Range 3.0 4.5PT Coag (PPP) [Time]10.5 sNormal9.4 - 12.5 second(s) [facility] Auto CoagComment on above:Interpretive Data: 15 days - 4 weeks 1 - [...] the same coagulation reagent and instrumentation as [facility]. Currently there are no coagulation studies available worldwide for children to 14 days, andno normal ranges.Casts typing in urine sediment by light microscopyOrdered By: Tera Nevarez on 22-31-3228Aexvj LM Nom (Urine sed)None seen [LPF]None Seen [facility] CenterColor Auto (U)Ordered By: Tera Nevarez on 15-33-5257Coxks (U)OrangeYellowUniversity Hospitals Geauga Medical CenterConsent for Treatmenton 68-04-4177Ufrdvqs for Treatment [id number]#1.00TIFFNoKing's Daughters Medical Center OhioCreatine kinase [Enzymatic activity/volume] in Serum or PlasmaOrdered By: Tera Nevarez on 21-92-5464QA [Catalytic activity/Vol]125 U/K36-728XpalgxscnUniversity Hospitals Geauga Medical CenterCreatinine [Mass/volume] in UrineOrdered By: Tera Nevarez on 32-77-6182Bvfnfcygks (U) [Mass/Vol]266.0 mg/dL14.0-26.0[facility] Clinical Summaryon 99-11-1967RN Clinical SummaryNormVan Wert County Hospital Note-Physicianon 55-56-2661EI Note-PhysicianWayne HealthCare Main CampusComment on above:Result Comment: Electronically Signed By: Paddy Betancourt PA-C.br\Date and Time Signed: 11/11/2411:42 EDT\.br\Electronically Co-Signed By: Alejandro Silva M.D..br\Date and Time Co-Signed: 11/11/23 19:21 EDTED Patient Education Noteon 43-03-5305HE Patient Education NoteNormalMet[facility]Health [facility] Patient Summaryon 72-16-0485TV Patient SummaryNoKing's Daughters Medical Center OhioEosinophils detection in urine sediment by Jean stainOrdered By: Tera Nevarez on 94-89-4190Sjtlioleati Jean stain Ql (Urine sed)1 %0-1FCherrington HospitalFT Blood Gases Ordered By: Korina Hebert on 4a/A Ratio Art26.50 %Normal>=0.80%[facility] Resp Auto SSAaDO2 Qbv298.8 mm[Hg]High5.0 - 15.0 mmHgFTMC Resp Auto SSAllens Test Positive (11/11/23 9:17 AM)NormalFTMC Resp Auto SSBase Excess Arterial-2.4 mmol/LLow >=2.8mmol/LFTMC Resp Auto SScCa2+ Art4.70 mg/dLNormal4.40 - 5.30 mg/dLFTMC Resp Auto SScCl- Art97.0 mmol/BAdu995.0 - 111.0 mmol/LFTMC Resp Auto SScGlu Frk100 mg/sAYmjf44 - 99 mg/dLFTMC Resp Auto SScK+ Art5.5 mmol/LHigh3.5 - 5.3 mmol/LFTMC Resp Auto SScLac Art1.0 mmol/LNormal0.5 - 2.2 mmol/LFTMC Resp Auto SScNa+ Art 135.0 mmol/FVzmcfg806.0 - 145.0 mmol/LFTMC Resp Auto SSDeviceCannula (11/11/23 9:17 AM)NormalFTMC Resp Auto SSDrawn bystacia schneiteInvalid Interpretation CodeFT[facility] Resp Auto SSFCOHb Art1.9 %Normal1.5 - 4.9 %[facility] Resp Auto SSComment on above:Interpretive Data: Reference range Nonsmoker <1.5% Smoker <5.0% Heavy Smoker <9.0%FIO2 BG40 1Invalid Interpretation CodeFT[facility] Resp Auto SSFMetHb Art0.1 %Normal0.0 - 1.9 %[facility] Resp Auto WEFG3Oa Art86.9 %Low93.0 - 100.0 %[facility] Resp Auto SSHCO3 (Bld) [Moles/Vol]22.2 mmol/ELvtymb06.0 - 26.0 mmol/LFT[facility] Resp Auto SSHemoglobin (Bld) [Mass/Vol]12.8 g/xXBatvln33.0 - 17.0 gm/dLFT Resp Auto SSP CO2 Igsallml45.0 mm[Hg]High35.0 - 45.0 mmHgD[facility] [place] SSP O2 Arterial 56.8 mm[Hg]Low80.0 - 100.0 mmHg[facility] Resp Auto SSpH (Bld)7.255 [pH]Low7.350 - 7.450[facility] Resp Auto SSSample SiteR Radial (11/11/23 9:17 AM)NormalD[facility]AN [facility] Resp Auto SSSample TypeArterial Draw (11/11/23 9:17 AM)NormalDUNCAN [facility] Resp Auto SSHEMATOLOGYOrdered By: SYSTEM SYSTEM on 76-91-6735Nnesctadq/100 WBC (Bld)0.5 %Normal0.0 - 2.0 %Remisol Heme Basophils/Leukocytes Auto (Bld) [Pure # fraction]0.0 E9/LNormal0.0 - 0.2 E9/L Remisol HemeEosinophils (Bld) [#/Vol]0.2 E9/LNormal0.0 - 0.5 E9/LRemisol Heme Eosinophils/100 WBC (Bld)1.9 %Normal0.0 - 8.0 %Remisol HemeErythrocyte distribution width (RBC) [Ratio]18.6 %High10.9 - 14.2 %Remisol HemeHematocrit (Bld) [Volume fraction]41.9 %Xjzzjv41.7 - 49.0 %Remisol HemeHemoglobin (Bld) [Mass/Vol]12.8 g/dLLow13.5 - 17.5 gm/dLRemisol HemeLymphocytes (Bld) [#/Vol]0.8 E9/LLow1.0 - 4.0 E9/LRemisol HemeLymphocytes/100 WBC (Bld)9.1 %Low14.0 - 50.0 % Remisol HemeMCH (RBC) [Entitic mass]26.4 pgLow27.0 - 34.0 pgRemisol HemeMCHC (RBC) [Mass/Vol]30.6 g/dLLow31.4 - 36.0 gm/dLRemisol HemeMCV (RBC) [Entitic vol] 86.3 uIBzbazw54.0 - 100.0 fLRemisol HemeMonocytes (Bld) [#/Vol]0.5 E9/LNormal0.2 - 1.0 E9/LRemisol HemeMonocytes/100 WBC (Bld)6.3 %Normal4.0 - 14.0 %Remisol HemeNeutrophils (Bld) [#/Vol]7.0 E9/LNormal2.0 - 7.5 E9/LRemisol Heme Neutrophils/100 WBC (Bld)82.2 %High36.0 - 75.0 %Remisol EjbfUoffduzz390.0 E9/L Fhikkb459.0 - 500.0 E9/LRemisol HemePlatelet mean volume (Bld) [Entitic vol]6.9 fLNormal6.4 - 10.8 fLRemisol HemeRBC (Bld) [#/Vol]4.9 E12/LNormal4.3 - 5.9 E12/L Remisol HemeWBC corrected for nucl RBC Auto (Bld) [#/Vol]8.5 E9/LNormal4.0 - 11.0 E9/LRemisol HemeKetones Auto test strip (U) [Mass/Vol]Ordered By: Tera Nevarez on 88-80-0639Xxigumn (U) [Mass/Vol]NegativeNegativeUniversity Hospitals Geauga Medical CenterLactate [Moles/volume] in Serum or PlasmaOrdered By: Tera Nevarez on 87-71-5185Oqrrpnj [Moles/Vol]0.8 mmol/L0.5-2.2FCherrington HospitalLactic Acidon 81-55-3876Qdofgp Acid Lvl1.5 mmol/LNormal0.5-2.2Fisher [facility] HospitalComment on above:Performed By: #### 0302635, 3215792, 12556955, 52885266, 10423435, 73765827, 4271482 ####[facility] [address] [place], [place] [address]Gsphxtf Recordon 51-50-3822Ztwhhpx [id number]#1.00TIFFNormalFisher Johns Hopkins HospitalMonitor [id number]#1.00TIFF NormalAtrium Health Pinevilleer Johns Hopkins HospitalNatriuretic peptide B [Mass/Vol]Ordered By: Tera Nevarez on 91-04-8049Dbcptogtxcg peptide B (Bld) [Mass/Vol]115.0 pg/mL5-100 [facility] Hospitals Geauga Medical CenterNitrite Test strip Ql (U)Ordered By: Tera Nevarez on 66-19-0510Uonfpgo Ql (U)NegativeNegativeUniversity Hospitals Geauga Medical CenterNo Panel InformationOrdered By: Tera Nevarez on 52-02-1662Sojbv Gas Liter Flow5 L/minUniversity Hospitals Geauga Medical CenterPT & PTTon 33-01-1095dVFE Coag (PPP) [Time]36.5 second(s)Ngsawd59.1-36.5Fisher Johns Hopkins HospitalComment on above: Result Comment: Parameter 15 days - 4 weeks 1 - 5 months 6 - 11 months 1 - 5 years 6 - 10 years 11 - 17 years PTT Mean: 35.4 (27.6-45.6) Mean: 33.5 (24.8- 40.7) Mean: 32.4 (25.1-40.7) Mean: 31.6 (24.0-39.2) Mean: 31.6 (26.9-38.7) Mean: 31.0 (24.6-38.4) Pediatric Reference ranges were obtained from astudy by Isaiah Hallman et al. prepared from 1437 samples obtained at 7 different centers using theNavut coagulation reagent and instrumentation as [facility]. Currently there are no coagulation studies available worldwide for children to 14 days, and no normal ranges. Heparin therapeutic range (represented by Anti-Factor Xa activity of 0.2 - 0.4 U/mL) corresponds to PTT of 56.6 - 109.0 sec.Performed By: #### 6103286, 4714971, 19295971, 87251882, 91953143, 12749210, 2294166 ####[facility] [address] [place], [place] [address]MLD Coag (PPP) [Relative time]0.94 {INR}Invalid Interpretation [facility] Comment on above:Result Comment: INR results are specifically intended to assess patients stabilized on long-term Anticoagulation therapy suggested INR?s ?Less Intensive Anticoagulation? 2.0 ? 3.0Conventional Range 3.0 ? 4.5Performed By: #### 4735225, 8323554, 62362161, 40219066, 08513704, 10854645, 5992047 ####[facility] [address] [place], [place] [address]JE Coag (PPP) [Time]10.5 second(s)Normal9.4-12.5FUniversity Hospitals Portage Medical CenterComment on above:Result Comment: 15 days - 4 weeks 1 - 5 months 6 -11 months 1-5 years 6-10 years 11 -17 years Mean:11.2 (9.5-12.6) Mean: 11.0 (9.7-12.8) Mean: 11.0 (9.8-13.0) Mean: 11.3 (9.9-13.4) Mean: 11.7 (10.0-14.6) Mean: 11.8 (10.0 - 14.1) Pediatric Reference ranges were obtained from a study by Isaiah Hallman et al. prepared from 1437 samples obtained at 7 different centers using the same coagulation reagent and instrumentation as [facility]. Currently there are no coagulation studies available worldwide for children to 14 days, and no normal ranges.Performed By: #### 1661056, 2642735, 93492118, 46105947, 71060820, 33727652, 8139688 ####[facility] [address] [place], [place] [address]Wlwhqxobq [Moles/volume] in UrineOrdered By: Tera Nevarez on 02-44-4606Jmwctcpqx (U) [Moles/Vol]29.7 mmol/LFCherrington Hospital Comment on above:No reference range establishedPre-Arrival Noteon 82-73-3196Mqh- Arrival NoteNormalCommunity Memorial HospitalProtein Auto test strip (U) [Mass/Vol]Ordered By: Tera Nevarez on 85-81-9197Ckhwqsx (U) [Mass/Vol]100 mg/dL NegativeUniversity Hospitals Geauga Medical CenterProtein [Mass/volume] in UrineOrdered By: Tera Nevarez on 77-23-6977Ksvvsmz (U) [Mass/Vol]105 mg/dL0-9Wadsworth-Rittman Hospitalodium [Moles/volume] in UrineOrdered By: Tera Nevarez on 92-47-1903Fsovyx (U) [Moles/Vol]18 mmol/LFCherrington Hospital Comment on above:No reference range establishedSpecific gravity Auto test strip (U) [Rel density]Ordered By: Tera Nevarez on 15-24-6575Cavcdore gravity (U) [Rel density]1.0171.001-1.030Wadsworth-Rittman Hospitalquamous epithelial cells detection in urine sediment by light microscopyOrdered By: Tera Nevarez on 36-45-2075Tvthcklklx cells.squamous LM Ql (Urine sed)0-1 [HPF]0-2FCherrington HospitalTransfer Documentson 95-99-0788Yarnxavo Documents [id number]#1.00TIFFNormalCommunity Memorial HospitalTroponin 0 Hr.on 43-89-8428Rdoalmrm83.40 pg/mLLow15.90-38.40Community [facility] HospitalComment on above:Result Comment: The 95% CI (Confidence Interval) PPV (Positive Predictive Value) for myocardial infarction in females is 38 pg/mL, in males 51 pg/mL. The results should be used in conjunction with cli nical conditions of myocardial infarction.(Access High Sensitivity Troponin I Instructions For Use,Opal Shirlene, March 2018)Performed By: #### 5130674, 3946075, 88623618, 01139917, 63111108, 90606082, 5682574 ####[facility] [address] [place], [place] [address]Pqkqkeub 3 Hr.on 76-21-2630Xjigdmhr15.60 pg/mLLow15.90-38.40[facility] HospitalComment on above:Result Comment: The 95% CI (Confidence Interval) PPV (Positive Predictive Value) for myocardial infarction in females is 38 pg/mL, in males 51 pg/mL. The results should be used in conjunction with clinical conditions of myocardial infarction.(Access High Sensitivity Troponin I Instructions For Use,Platypi, March 2018)Performed By: #### [id number] ####[facility] [address] [place], [place] [address]Azinevfx 6 Hr.on 19-50-0614Ccutfraf 12.90 pg/mLLow15.90-38.40[facility] HospitalComment on above:Result Comment: The 95% CI (Confidence Interval) PPV (Positive Predictive Value) for myocardial infarction in females is 38 pg/mL, in males 51 pg/mL. The results should be used in conjunction with clinical conditions of myocardial infarction.(Access High Sensitivity Troponin I Instructions For Use,Platypi, March 2018)Performed By: #### [id number] ####[facility] [address] [place], [place] [address]Hvxbkgfw I.cardiac [Mass/volume] in Serum or Plasma by Detection limit <= 0.01 ng/Ordered By: Tera Nevarez on 15-85-6050Dpnlnjts I.cardiac DL <= 0.01 ng/mL [Mass/Vol]12.3 pg/mL0.0-20.0 [facility]auga Medical CenterUA with Cult Rflxon 85-21-2621Bxkaxtcrw Ql (U) 1+AbnormalNegativeCommunity Memorial HospitalComment on above:Performed By: #### 9181778, [id number] ####[facility] [address] [place], [place] [address]Jwpozqh (U)TURBIDAbnormalClearFisher [facility] Comment on above:Performed By: #### 1340806, [id number] ####[facility] [address] [place], [place] [address]Qqfaq (U)BROWNInvalid Interpretation CodeCommunity Memorial HospitalComment on above:Performed By: #### 8891313, [id number] ####[address] [address]Gpbigme Test strip (U) [Mass/Vol]NegativeNormalNegative [facility] HospitalComment on above:Performed By: #### 8316588, [id number] ####[address] [address]Tqradiaaav Ql (U)3+AbnormalNegativeCommunity Memorial HospitalComment on above:Performed By: #### 9177866, [id number] ####[address] [address]Qqilmpf (U) [Mass/Vol]TRACEInvalid Interpretation CodeNegativeCommunity Memorial HospitalComment on above:Performed By: #### 4452216, [id number] ####[address] [address]Mfgfsmd Ql (U)PositiveAbnormalNegativeCommunity Memorial HospitalComment on above:Performed By: #### 7797671, 5831607477 ####[address] [address]iG (U)5.5 [pH] Invalid Interpretation Code5.0-9.0Community Memorial HospitalComment on above: Performed By: #### 5789501, [id number] ####[address] [address]Fdrxzha (U) [Mass/Vol]2+Abnormal NegativeCommunity Memorial HospitalComment on above:Performed By: #### 2955435, 1584117207 ####[address] [address]Bmnleivd gravity (U) [Rel density]>=1.030Invalid Interpretation Code 1.005-1.030Community Memorial HospitalComment on above:Performed By: #### 3341667, [id number] ####[address] [address]GZ Bacteria2+ CD:[id number] [facility] Medical CenterComment on above:Performed By: #### 7926203, 0599499882 ####[address] [place], [place] [address]NT MucousTraceNormal NegativeCommunity Memorial HospitalComment on above:Performed By: #### 4044375, 7369459999 ####[address] [address]TZ RBC>43Zbasvjig9-0BxmxodUniversity Hospitals Portage Medical CenterComment on above:Performed By: #### 2724633, 1716155938 ####[address] [address]UB Squam Qgnfxvcohm0-0Pjtsml3-3Lgkorf Johns Hopkins HospitalComment on above:Performed By: #### 5198186, [id number] ####[address] [address]QP DEC89-64Zoeuzlaz0-8 [facility] HospitalComment on above:Performed By: #### 9517238, 1314938953 ####[address] [address]Pzioxwkomexd Qn (U)0.2Oyfwnt9.0-1.0Community [facility] HospitalComment on above:Performed By: #### 3370678, [id number] ####[address] [address]KZE Auto Ql (U)1+AbnormalNegative Community Memorial HospitalComment on above:Performed By: #### 1912166, [id number] ####[address] [address]ZO Spec DescClean CatchNormalCommunity Memorial HospitalComment on above: Performed By: #### 9840161, [id number] ####[address] [address]LIWOUZZEKNUpwawtc By: Hudson Schmidt on 67-59-4254Qtcvbeklw Ql (U)1+ *ABN* (11/11/23 9:14 AM)Invalid Interpretation CodeNegativeFTMC UA Auto SSClarity (U) Turbid *ABN* (11/11/23 9:14 AM)Invalid Interpretation CodeClearFTMC UA Auto SSColor (U)BROWN Invalid Interpretation CodeFTMC UA Auto SSGlucose Test strip (U) [Mass/Vol] Negative (11/11/23 9:14 AM)NormalNegativeFTMC UA Auto SSHemoglobin Ql (U)3+ *ABN* (11/11/23 9:14 AM)Invalid Interpretation CodeNegativeFTMC UA Auto SSKetones (U) [Mass/Vol]Trace *NA* (11/11/23 9:14 AM)Invalid Interpretation CodeNegativeFTMC UA Auto SSNitrite Ql (U)Positive *ABN* (11/11/23 9:14 AM)Invalid Interpretation CodeNegativeFTMC UA Auto SSpH (U)5.5 *NA* (11/11/23 9:14 AM)Invalid Interpretation Code5.0 - 9.0FT[facility] UA Auto SSProtein (U) [Mass/Vol]2+ *ABN* (11/11/23 9:14 AM)Invalid Interpretation CodeNegativeFTMC UA Auto SSSpecific gravity (U) [Rel density]>=1.030 *NA* (11/11/23 9:14 AM)Invalid Interpretation Code1.005 - 1.030[facility] UA Auto SSUA Bacteria2+ graded/HPFInvalid Interpretation CodeTracegraded/HPFFTMC UA Auto SSUA MucousTraceNormalNegativeFTMC UA Auto SSUA RBC>75 graded/HPFInvalid Interpretation Code0-3graded/HPFFTMC UA Auto SSUA Squam Epithelial0-2 graded/HPF Normal0-2graded/HPFFTMC UA Auto SSUA RUG82-61 *ABN* (11/11/23 9:14 AM)Invalid Interpretation Code0-5FT[facility] UA Auto SSUrobilinogen Qn (U)0.2 (11/11/23 9:14 AM)Normal0.0 - 1.0FT[facility] UA Auto SSWBC Auto Ql (U)1+ *ABN* (11/11/23 9:14 AM)Invalid Interpretation CodeNegativeFTMC UA Auto SSURINALYSIS Ordered By: Paddy Betancourt on 11-26-0190QH Spec DescClean Catch (11/11/23 9:14 AM)NormalD[facility] UA Auto SS Urine bacteria detection by automated methodOrdered By: Tera Nevarez on 66-09-9202Rjotfpro Auto Ql (U)None seenNone [facility] SystemUrine clarity by refractometry automatedOrdered By: Tera Nevarez on 75-12-7304Ovefdks Refractometry automated (U)TurbidCleWexner Medical CenterUrine culture routineOrdered By: Tera Nevarez on 80-94-1024Sflylovj identified Cx Nom (U)Kaelyn albicansUniversity Hospitals Geauga Medical CenterUrine glucose measurement by automated test strip (mass/volume) Ordered By: Tera Nevarez on 45-15-6347Flstuwt Auto test strip (U) [Mass/Vol] Normal mg/dLCleveland Clinic Avon HospitalUrine hemoglobin detection by automated test stripOrdered By: Tera Nevarez on 12-23-9029Wfnhttypwl Auto test strip Ql (U)3+NegativeUniversity Hospitals Geauga Medical CenterUrine leukocyte esterase detection by automated test stripOrdered By: Tera Nevarez on 58-88-8091Vutqyrtcw esterase Auto test strip Ql (U)3+[facility] Urobilinogen Auto test strip (U) [Mass/Vol]Ordered By: Tera Nevarez on 40-70-2032Uthrdqtuerrc (U) [Mass/Vol]Normal mg/dLNoDelaware County HospitalXR Chest Single Viewon 45-13-9253PR Chest Single ViewNoKing's Daughters Medical Center OhioYeast detection in urine sediment by light microscopyOrdered By: Tera Nevarez on 62-41-5269Efhcp LM Ql (Urine sed)Hyphae present [HPF]None [facility] SystemComment on above:2+eGFRon 87-84-7239jLRZ64 mL/min/1.73 m2Low>=59Community Memorial HospitalComment on above:Order Comment: Order added by Discern Expert.Performed By: #### 0861311, 6885519, 77916342, 69962973, 74743565, 59764452, 6762231 ####[facility] [address] [place], [place] [address]kV Auto test strip (U)Ordered By: Tera Nevarez on 94-27-7169cQ (U)5.0 [pH]5.0-9.0[facility] Ambulatory Visit Summaryon 36-61-7175Usmkehpzzt Visit SummaryNormalCommunity Memorial HospitalCNPNon 57-18-5385WXTAPttritnig (PODCCP) NICOLE LORA ([id number]) 1960 M Date Time Provider Department 10/31/23 MOUNIKA BROOKE PODCCP During your visit today, we recorded the following information about you: Allergies As of Date: 10/31/2023 Noted Allergy Reaction PENICILLINS 12/01/2014 2 - Rash Date Reviewed: 10/25/2023 Reviewed by: Matt Kingston RN - Fully Assessed Reason for Visit: Follow Up Phone Call [[phone]] Cmt: Post Discharge F/U - attempt made. [...] three times daily before meals. - INSULIN GLARGINE,HUM.REC.ANLOG (LANTUS SOLOSTAR SUBCUTANEOUS) Inject 40 [...] Encounter Status:Closed by KIKO DEL VALLE on 10/31/23[facility] for Treatmenton 44-57-8159Dvvlwsy for Treatment [id number]#1.00TIFKettering HealthDischarge Instructionson 96-59-2635Xkppxzmwi Instructions [id number]#1.00TIFFAdena Fayette Medical Center CenterED Clinical Summaryon 02-18-1669ZT Clinical SummaryNormMercy Hospital Bakersfield Medical CenterED Note-Physicianon 31-38-4221HM Note-PhysicianNoKing's Daughters Medical Center OhioComment on above:Result Comment: Electronically Signed By: Staci Beck DO\Date and Time Signed: 10/30/23 05:22 EDTED Patient Education Noteon 90-71-1294ZI Patient Education NoteNoKindred Hospital Lima Patient Summaryon 90-94-1907BQ Patient SummaryNoKing's Daughters Medical Center Ohio CBC W Auto Differential panel (Bld)on 10-14-8241Evmfhbdlc (Bld) [#/Vol]0.04 10*3/uLNormal<0.11Fafederal medical center, devens HospitalComment on above:Order Comment: Specimen Type: BLOOD SPECIMEN Ordering Facility: [facility] Address: [address] [place], [place] [address]Performed By: #### 23739-2, 50504-4 #### [facility] CLIA [id number] [address] [place] [address] [place] AMERICABasophils/100 WBC (Bld)0.7 %Normal [facility]wakefield HospitalComment on above:Order Comment: Specimen Type: BLOOD SPECIMEN Ordering Facility: [facility] Address: [address] [place], [place] [address]Performed By: #### 21462-2, 88217-0 #### [facility] CLIA [id number] [address] [place] [address] [place] AMERICADifferential cell count method Nom (Bld)AutoNormalFafederal medical center, devens HospitalComment on above:Order Comment: Specimen Type: BLOOD SPECIMEN [facility] Facility: [facility] Address: [address] [place], [place] [address]Performed By: #### 41299-5, 58799-5 #### [facility] CLIA [id number] [address] [place] [address] [place] AMERICAEosinophils (Bld) [#/Vol]0.32 10*3/uLNormal<0.46Fafederal medical center, devens HospitalComment on above:Order Comment: Specimen Type: BLOOD SPECIMEN [facility] Facility: [facility] Address: [address] [place], [place] [address]Performed By: #### 05784-6, 43366-1 #### [facility] CLIA [id number] [address] [place] [address] [place] AMERICAEosinophils/100 WBC (Bld)5.4 %Normal Sterling HospitalComment on above:Order Comment: Specimen Type: BLOOD SPECIMEN Ordering Facility: [facility] Address: [address] [place], [place] [address]Performed By: #### 04908-8, 85225-2 #### [facility] CLIA [id number] [address] [place] [address] [place] AMERICAErythrocyte distribution width (RBC) [Ratio]16.1 %High11.5-15.0Fafederal medical center, devens HospitalComment on above:Order Comment: Specimen Type: BLOOD SPECIMEN [facility] Facility: [facility] Address: [address] [place], [place] [address]Performed By: #### 78529-7, 48940-3 #### [facility] CLIA [id number] [address] [place] [address] [place] AMERICAHematocrit (Bld) [Volume fraction] 41.3 %Ifpbjf45.0-51.0Fafederal medical center, devens HospitalComment on above:Order Comment: Specimen Type: BLOOD SPECIMEN Ordering Facility: [facility] Address: [address] [place], [place] [address]Performed By: #### 50953-3, 55611-4 #### [facility] CLIA [id number] [address] [place] [address] [place] AMERICAHemoglobin (Bld) [Mass/Vol]12.3 g/dL Low13.0-17.0Fafederal medical center, devens HospitalComment on above:Order Comment: Specimen Type: BLOOD SPECIMEN Ordering Facility: [facility] Address: [address] [place], [place] [address]Performed By: #### 55155-0, 15339-8 #### [facility] CLIA [id number] [address] [place] [address] [place] AMERICAImmature granulocytes (Bld) [#/Vol] 10*3/uLNormal<0.10Fafederal medical center, devens HospitalComment on above:Order Comment: Specimen Type: BLOOD SPECIMEN Order[facility] Facility: [facility] Address: [address] [place], [place] [address]Performed By: #### 88915-5, 29499-1 #### [facility] CLIA [id number] [address] [place] [address] [place] AMERICAImmature granulocytes/100 WBC (Bld) 0.3 %NormalSterling HospitalComment on above:Order Comment: Specimen Type: BLOOD SPECIMEN Ordering Facility: [facility] Address: [address] [place], [place] [address]Performed By: #### 32181-0, 75415-4 #### [facility] CLIA [id number] [address] [place] [address] [place] AMERICALymphocytes (Bld) [#/Vol]1.01 10*3/uLNormal1.00-4.00Sterling HospitalComment on above:Order Comment: Specimen Type: BLOOD SPECIMEN Ordering Facility: [facility] Address: [address] [place], [place] [address]Performed By: #### 70700-7, 89811-4 #### [facility] CLIA [id number] [address] [place] [address] [place] AMERICALymphocytes/100 WBC (Bld)17.0 % NormalSterling HospitalComment on above:Order Comment: Specimen Type: BLOOD SPECIMEN [facility]ing Facility: [facility] Address: [address] [place], [place] [address]Performed By: #### 79523-6, 84368-1 #### [facility] CLIA [id number] [address] [place] [address] [place] AMERICAMCH (RBC) [Entitic mass]26.6 pg Fqiyfu04.0-34.0Sterling HospitalComment on above:Order Comment: Specimen Type: BLOOD SPECIMEN [facility]ing Facility: [facility] Address: [address] [place], [place] [address]Performed By: #### 97242-4, 63843-9 #### [facility] CLIA [id number] [address] [place] [address] [place] [facility] ALMAHC (RBC) [Mass/Vol]29.8 g/dLLow 30.5-36.0Fafederal medical center, devens HospitalComment on above:Order Comment: Specimen Type: BLOOD SPECIMEN [facility] Facility: [facility] Address: [address] [place], [place] [address]Performed By: #### 28494-8, 32291-5 #### [facility] CLIA [id number] [address] [place] [address] OF [facility] ALMAV (RBC) [Entitic vol]89.4 fLNormal 80.0-100.0Fafederal medical center, devens HospitalComment on above:Order Comment: Specimen Type: BLOOD SPECIMEN [facility] Facility: [facility] Address: [address] [place], [place] [address]Performed By: #### 27647-7, 80326-7 #### [facility] CLIA [id number] [address] [place] [address] [place] AMERICAMonocytes (Bld) [#/Vol]0.67 10*3/uL Normal<0.87Fafederal medical center, devens HospitalComment on above:Order Comment: Specimen Type: BLOOD SPECIMEN Ordering Facility: [facility] Address: [address] [place], [place] [address]Performed By: #### 70105-2, 05578-4 #### [facility] CLIA [id number] [address] [place] [address] [place] AMERICAMonocytes/100 WBC (Bld)11.3 %Normal [facility]wakefield HospitalComment on above:Order Comment: Specimen Type: BLOOD SPECIMEN Ordering Facility: [facility] Address: [address] [place], [place] [address]Performed By: #### 49398-7, 50235-1 #### [facility] CLIA [id number] [address] [place] [address] [place] AMERICANeutrophils (Bld) [#/Vol]3.88 10*3/uLNormal1.45-7.50Fafederal medical center, devens HospitalComment on above:Order Comment: Specimen Type: BLOOD SPECIMEN [facility] Facility: [facility] Address: [address] [place], [place] [address]Performed By: #### 12508-4, 02748-9 #### [facility] CLIA [id number] [address] [place] [address] [place] AMERICANeutrophils/100 WBC (Bld)65.3 % NormalSterling HospitalComment on above:Order Comment: Specimen Type: BLOOD SPECIMEN [facility]ing Facility: [facility] Address: [address] [place], [place] [address]Performed By: #### 57039-6, 09769-1 #### [facility] CLIA [id number] [address] [place] [address] [place] AMERICANucleated RBC (Bld) [#/Vol]10*3/uL Normal<0.01Sterling HospitalComment on above:Order Comment: Specimen Type: BLOOD SPECIMEN Ordering Facility: [facility] Address: [address] [place], [place] [address]Performed By: #### [id number], 70684-2 #### [facility] CLIA [id number] [address] [place] [address] [place]ucleated RBC/100 WBC (Bld) [Ratio] 0.0 /100 WBCNormalSterling HospitalComcorewell health [facility] on above:Order Comment: Specimen Type: BLOOD SPECIMEN Ordering Facility: [facility] Address: [address] [place], [place] [address]Performed By: #### 54373-4, 79162-6 #### [facility] CLIA [id number] [address] [place] [address] [place] AMERICAPlatelet mean volume (Bld) [Entitic vol]8.9 fLLow9.0-12.7Fhaverhill pavilion [facility] HospitalComment on above:Order Comment: Specimen Type: BLOOD SPECIMEN [facility]ing Facility: [facility] Address: [address] [place], [place] [address]Performed By: #### 03826-0, 06971-0 #### [facility] CLIA [id number] [address] [place] [address] [place] AMERICAPlatelets (Bld) [#/Vol]250 10*3/uL Yhdbpe003-350Epxbkujs HospitalComment on above:Order Comment: Specimen Type: BLOOD SPECIMEN [facility]ing Facility: [facility] Address: [address] [place], [place] [address]Performed By: #### 46940-5, 52222-6 #### [facility] CLIA [id number] [address] [place], [place] [address] [facility] (Bld) [#/Vol]4.62 10*6/uLNormal 4.20-6.00[facility]field HospitalComment on above:Order Comment: Specimen Type: BLOOD SPECIMEN [facility] Facility: [facility] Address: [address] [place], [place] [address]Performed By: #### 91947-5, 25745-5 #### [facility] CLIA [id number] [address] [place] [address] (d) [#/Vol]5.94 10*3/uLNormal 3.70-11.00[facility]wakefield HospitalComment on above:Order Comment: Specimen Type: BLOOD SPECIMEN [facility] Facility: [facility] Address: [address] [place], [place] [address]Performed By: #### 37674-3, 80772-9 #### [facility] CLIA [id number] [address] [place], [place] [address]CNSelect [facility] Specialty [facility] [id number] ID: [id number] Author: TAY STEWART MD Service: General Internal [...] Follow Up Appointments Follow-Up Appointment Office number: [phone] When: In 1 week Patient/Parents to call for appointment?: Yes Tay Stewart MD [phone] [place] [address] PCP Requested Referral Follow-Up Appointment With: your Primary Care Doctor When: In 1 week Patient/Parents to call for appointment?: Yes Additional Provider to Provider Information: This is a 63 year old male with a PMHx of CKD 3b, chronic respiratory failure, morbid obesity, insulin dependent diabetes, left forefoot amputation admitted from home, lives in [place] for fluid overload. The patient states he's [...] 77, no ischemic (more content not included)... NormalFafederal medical center, devens HospitalMagnesium SerPl-mCncon 42-99-2444Rbvlqvrmi [Mass/Vol]2.0 mg/dLNormal1.7-2.3Fhaverhill [facility] HospitalComment on above:Order Comment: Specimen Type: BLOOD SPECIMEN [facility] Facility: [facility] Address: [address] [place], [place] [address]Performed By: #### 59841-0, 17868-5 #### [facility] CLIA [id number] [address] [place] [address] [place] AMERICARenal function 2000 panelon 46-96-9869Zyscayz [Mass/Vol]3.3 g/dLLow3.9-4.9Fafederal medical center, devens HospitalComment on above: Order Comment: Specimen Type: BLOOD SPECIMEN [facility] Facility: [facility] Address: [address] [place], [place] [address]Performed By: #### 28104-4, 04945-2 #### [facility] CLIA [id number] [address] [place] [address] [place] AMERICAAnion gap [Moles/Vol]8 mmol/LLow9-18 Sterling HospitalComment on above:Order Comment: Specimen Type: BLOOD SPECIMEN [facility]ing Facility: [facility] Address: [address] [place], [place] [address]Performed By: #### 42428-2, 02996-3 #### [facility] CLIA [id number] [address] [place] [address] [place] AMERICACalcium [Mass/Vol]9.1 mg/dLNormal 8.5-10.2Fha[facility] HospitalComment on above:Order Comment: Specimen Type: BLOOD SPECIMEN [facility] Facility: [facility] Address: [address] [place], [place] [address]Performed By: #### 99525-5, 99958-8 #### [facility] CLIA [id number] [address] [place] [address] [place] AMERICAChloride [Moles/Vol]97 mmol/LNormal 97-105FaBoston DispensaryComment on above:Order Comment: Specimen Type: BLOOD SPECIMEN [facility]ing Facility: [facility] Address: [address] [place], [place] [address]Performed By: #### 25346-4, 94875-1 #### [facility] CLIA [id number] [address] [place] [address] [place] AMERICACO2 [Moles/Vol]35 mmol/CQfkh30-38 [facility] HospitalComment on above:Order Comment: Specimen Type: BLOOD SPECIMEN [facility] Facility: [facility] Address: [address] [place], [place] [address]Performed By: #### 27057-5, 61308-9 #### [facility] CLIA [id number] [place] [address] [place] AMERICACreatinine [Mass/Vol]1.72 mg/dLHigh 0.73-1.22[facility] on above:Order Comment: Specimen Type: BLOOD SPECIMEN [facility] Facility[facility] Address: [address] [place], [place] [address]Performed By: #### 95155-6, 37431-7 #### [facility] CLIA [id number] [address] [place] [address] [place] AMERICACreatinine and Glomerular filtration rate.predicted panel (S/P/Bld)44 mL/min/1.73m???Low>=60FaHouse of the Good Samaritan on above:Order Comment: Specimen Type: BLOOD SPECIMEN [facility] Facility: [facility] Address: [address] [place], [place] [address]Result Comment: Estimated Glomerular Filtration Rate (eGFR) is calculated using the 2020 CKD-EPI cre atinine equation. This equation utilizes serum creatinine, sex, and age as parameters. The creatinine assay has traceable calibration to isotope dilution- mass spectrometry. Refer to KDIGO guidelines for clinical interpretation. In patients with unstable renal function, e.g. those with acute kidney injury, the eGFR may not accurately reflect actual GFR.Performed By: #### 43492-7, 30327-8 #### [facility] CLIA [id number] [address] [place] [address] [place] AMERICAGlucose [Mass/Vol]152 mg/sQEqqb97-[address] [facility] [facility] on above:Order Comment: Specimen Type: BLOOD SPECIMEN [facility] Facility: [facility] Address: [address] [place], [place] [address]Result Comment: The [place] Diabetes Association (ADA) provides guidance for cutoff [...] Standards of Medical Care in Diabetes 2016, [place] [employer]. Diabetes Care. 2016.39(Suppl 1).Performed By: #### 15662-7, 21677-3 #### [facility] CLIA [id number] [address] [place] [address] [place] AMERICAPhosphate [Mass/Vol]4.6 mg/dLNormal 2.7-4.8Fafederal medical center, devens HospitalComment on above:Order Comment: Specimen Type: BLOOD SPECIMEN [facility] Facility: [facility] Address: [address] [place], [place] [address]Performed By: #### 69682-4, 31460-3 #### [facility] CLIA [id number] [address] [place] [address] [place] AMERICAPotassium [Moles/Vol]4.0 mmol/L Normal3.7-5.1Fha[facility] HospitalComment on above:Order Comment: Specimen Type: BLOOD SPECIMEN [facility] Facility: [facility] Address: [address] [place], [place] [address]Performed By: #### 79616-9, 20089-3 #### [facility] CLIA [id number] [address] [place] [address] [place] AMERICASodium [Moles/Vol]140 mmol/LNormal 136-144Sterling HospitalComment on above:Order Comment: Specimen Type: BLOOD SPECIMEN [facility] Facility: [facility] Address: [address] [place], [place] [address]Performed By: #### 68957-1, 15849-9 #### [facility] CLIA [id number] [address] [place] [address] [place] AMERICAUrea nitrogen [Mass/Vol]39 mg/dLHigh 9-24Fafederal medical center, devens HospitalComment on above:Order Comment: Specimen Type: BLOOD SPECIMEN [facility] Facility: [facility] Address: [address] [place], [place] [address]Performed By: #### 05752-2, 61700-8 #### [facility] CLIA [id number] [address] [place] [address] [place] AMERICACB W Auto Differential panel (Bld) on 20-64-1939Xdtruuddn (Bld) [#/Vol]10*3/uLNormal<0.11Fafederal medical center, devens HospitalComment on above:Order Comment: Specimen Type: BLOOD SPECIMEN [facility] Facility: [facility] Address: [address] [place], [place] [address]Performed By: #### 56156-8, 76428-9 #### [facility] CLIA [id number] [address] [place] [address] [place] AMERICABasophils/100 WBC (Bld)0.3 %Normal Sterling HospitalComment on above:Order Comment: Specimen Type: BLOOD SPECIMEN [facility] Facility: [facility] Address: [address] [place], [place] [address]Performed By: #### 98145-5, 23185-0 #### [facility] CLIA [id number] [address] [place] [address] [place] AMERICADifferential cell count method Nom (Bld)AutoNormalFafederal medical center, devens HospitalComment on above:Order Comment: Specimen Type: BLOOD SPECIMEN [facility] Facility: [facility] Address: [address] [place], [place] [address]Performed By: #### 55472-0, 20853-7 #### [facility] CLIA [id number] [address] [place] [address] [place] AMERICAEosinophils (Bld) [#/Vol]0.26 10*3/uLNormal<0.46Fafederal medical center, devens HospitalComment on above:Order Comment: Specimen Type: BLOOD SPECIMEN [facility] Facility: [facility] Address: [address] [place], [place] [address]Performed By: #### 91263-0, 90768-0 #### [facility] CLIA [id number] [address] [place] [address] [place] AMERICAEosinophils/100 WBC (Bld)4.4 %Normal Sterling HospitalComment on above:Order Comment: Specimen Type: BLOOD SPECIMEN [facility] Facility: [facility] Address: [address] [place], [place] [address]Performed By: #### 62962-2, 52966-1 #### [facility] CLIA [id number] [address] [place] [address] [place] AMERICAErythrocyte distribution width (RBC) [Ratio]16.0 %High11.5-15.0Fafederal medical center, devens HospitalComment on above:Order Comment: Specimen Type: BLOOD SPECIMEN [facility] Facility: [facility] Address: [address] [place], [place] [address]Performed By: #### 22141-1, 40257-6 #### [facility] CLIA [id number] [address] [place] [address] [place] AMERICAHematocrit (Bld) [Volume fraction] 39.9 %Sxoeod20.0-51.0Fafederal medical center, devens HospitalComment on above:Order Comment: Specimen Type: BLOOD SPECIMEN [facility] Facility: [facility] Address: [address] [place], [place] [address]Performed By: #### 99196-5, 20884-5 #### [facility] CLIA [id number] [address] [place] [address] [place] AMERICAHemoglobin (Bld) [Mass/Vol]12.0 g/dL Low13.0-17.0Fafederal medical center, devens HospitalComment on above:Order Comment: Specimen Type: BLOOD SPECIMEN [facility] Facility: [facility] Address: [address] [place], [place] [address]Performed By: #### 69691-3, 31552-1 #### [facility] CLIA [id number] [address] [place] [address] [place] AMERICAImmature granulocytes (Bld) [#/Vol] 10*3/uLNormal<0.10Fafederal medical center, devens HospitalComment on above:Order Comment: Specimen Type: BLOOD SPECIMEN [facility] Facility: [facility] Address: [address] [place], [place] [address]Performed By: #### 40241-1, 02107-7 #### [facility] CLIA [id number] [address] [place] [address] [place] AMERICAImmature granulocytes/100 WBC (Bld) 0.3 %NormalSterling HospitalComment on above:Order Comment: Specimen Type: BLOOD SPECIMEN [facility] Facility: [facility] Address: [address] [place], [place] [address]Performed By: #### 77589-6, 03645-7 #### [facility] CLIA [id number] [address] [place] [address] [place] AMERICALymphocytes (Bld) [#/Vol]0.96 10*3/uLLow1.00-4.00Fafederal medical center, devens HospitalComment on above:Order Comment: Specimen Type: BLOOD SPECIMEN [facility] Facility: [facility] Address: [address] [place], [place] [address]Performed By: #### 00963-3, 31404-2 #### [facility] CLIA [id number] [address] [place] [address] [place] AMERICALymphocytes/100 WBC (Bld)16.4 % NormalSterling HospitalComment on above:Order Comment: Specimen Type: BLOOD SPECIMEN [facility] Facility: [facility] Address: [address] [place], [place] [address]Performed By: #### 87586-4, 71237-3 #### [facility] CLIA [id number] [address] [place] [address] (RBC) [Entitic mass]26.7 pg Znfjjy69.0-34.0Fafederal medical center, devens HospitalComment on above:Order Comment: Specimen Type: BLOOD SPECIMEN [facility] Facility: [facility] Address: [address] [place], [place] [address]Performed By: #### 76049-0, 72760-2 #### [facility] CLIA [id number] [address] [place] [address] (RBC) [Mass/Vol]30.1 g/dLLow 30.5-36.0Sterling HospitalComment on above:Order Comment: Specimen Type: BLOOD SPECIMEN [facility] Facility: [facility] Address: [address] [place], [place] [address]Performed By: #### 75333-5, 59773-1 #### [facility] CLIA [id number] [address] [place] [address] [place] AMERICAMCV (RBC) [Entitic vol]88.9 fLNormal 80.0-100.0Fafederal medical center, devens HospitalComment on above:Order Comment: Specimen Type: BLOOD SPECIMEN [facility] Facility: [facility] Address: [address] [place], [place] [address]Performed By: #### 90179-0, 14600-8 #### [facility] CLIA [id number] [address] [place] [address] [place] AMERICAMonocytes (Bld) [#/Vol]0.70 10*3/uL Normal<0.87Fafederal medical center, devens HospitalComment on above:Order Comment: Specimen Type: BLOOD SPECIMEN [facility] Facility: [facility] Address: [address] [place], [place] [address]Performed By: #### 95348-3, 30025-4 #### [facility] CLIA [id number] [address] [place] [address] [place] AMERICAMonocytes/100 WBC (Bld)11.9 %Normal Sterling HospitalComment on above:Order Comment: Specimen Type: BLOOD SPECIMEN [facility] Facility[facility] Address: [address] [place], [place] [address]Performed By: #### 82920-5, 14835-0 #### [facility] CLIA [id number] [address] [place] [address] [place] AMERICANeutrophils (Bld) [#/Vol]3.91 10*3/uLNormal1.45-7.50Fafederal medical center, devens HospitalComment on above:Order Comment: Specimen Type: BLOOD SPECIMEN [facility] Facility[facility] Address: [address] [place], [place] [address]Performed By: #### 63397-6, 79076-6 #### [facility] CLIA [id number] [address] [place] [address] [place] AMERICANeutrophils/100 WBC (Bld)66.7 % NormalSterling HospitalComment on above:Order Comment: Specimen Type: BLOOD SPECIMEN [facility] Facility[facility] Address: [address] [place], [place] [address]Performed By: #### 98670-0, 21186-6 #### [facility] CLIA [id number] [address] [place] [address] [place] AMERICANucleated RBC (Bld) [#/Vol]10*3/uL Normal<0.01Sterling HospitalComment on above:Order Comment: Specimen Type: BLOOD SPECIMEN [facility] Facility: [facility] Address: [address] [place], [place] [address]Performed By: #### 76974-3, 05464-4 #### [facility] CLIA [id number] [address] [place] [address] [place] AMERICANucleated RBC/100 WBC (Bld) [Ratio] 0.0 /100 WBCNormalSterling HospitalComment on above:Order Comment: Specimen Type: BLOOD SPECIMEN [facility] Facility[facility] Address: [address] [place], [place] [address]Performed By: #### 26747-7, 09581-3 #### [facility] CLIA [id number] [address] [place] [address] [place] AMERICAPlatelet mean volume (Bld) [Entitic vol]8.7 fLLow9.0-12.7Fha[facility] HospitalComment on above:Order Comment: Specimen Type: BLOOD SPECIMEN [facility] Facility[facility] Address: [address] [place], [place] [address]Performed By: #### 02987-8, 34751-3 #### [facility] CLIA [id number] [address] [place] [address] [place] AMERICAPlatelets (Bld) [#/Vol]222 10*3/uL Jmpxwg155-117Zfnloajg HospitalComment on above:Order Comment: Specimen Type: BLOOD SPECIMEN [facility] Facility[facility] Address: [address] [place], [place] [address]Performed By: #### 58830-7, 09967-2 #### [facility] [place] [id number] [address] [place] [id number] [facility] (Bld) [#/Vol]4.49 10*6/uLNormal 4.20-6.00[facility]rosew[facility]field HospitalComment on above:Order Comment: Specimen Type: BLOOD SPECIMEN [facility] Facility[facility] Address: [address] [place], [place] [address]Performed By: #### 27985-0, 41710-2 #### [facility] [place] [id number] (Bld) [#/Vol]5.87 10*3/uLNormal 3.70-11.00FaBoston DispensaryComment on above:Order Comment: Specimen Type: BLOOD SPECIMEN [facility] Facility: [facility] Address: [address] [place], [place] [address]Performed By: #### 65569-8, 75048-5 #### [facility] IA [id number] [address] [address]CONSULT PROGon 51-22-1103EWGXGGD PROGHNO ID: [id number] Author: NAUN COUCH MD Service: Nephrology Author [...] Calcium, Total (mg/dL) Date Value 10/27/2023 9.1 Impression/Recommendations Mr. Lora is a 63 year old male with a past medical history of CKD III with baseline Cr up ~ 1.5, chronic respiratory failure on 4L home O2 since 05/2023, morbid obesity, insulin dependent diabetes, and left forefoot amputation admitted from home who presented to [facility] with complaints of worsening shortness of breath, bilateral lower extremity edema and ~ 10lb weight gain in the last few weeks. Patient reports multiple hospital admissions in 2023 at [facility] in [place] for fluid overload. He states he usually [...] More stable, feeling b (more content not included)...NormalKenmore Hospital metabolic 2000 panelon 62-11-2820Znycsha [Mass/Vol]3.3 g/dLLow 3.9-4.9Sterling HospitalComment on above:Order Comment: Specimen Type: BLOOD SPECIMEN [facility] Address: [address] [place], [place] [address]Performed By: #### 82130-5, 85843-2 #### [facility] CLIA [id number] [address] [place] [address] [place] AMERICAALP [Catalytic activity/Vol]88 U/L Mxjwdy90-070Jpqlnkuq HospitalComment on above:Order Comment: Specimen Type: BLOOD SPECIMEN [facility] Facility[facility] Address: [address] [place], [place] [address]Performed By: #### 79186-6, 13270-8 #### [facility] CLIA [id number] [address] [place] [address] [place] AMERICAALT [Catalytic activity/Vol]11 U/L Aiyijn30-89Aoxvzesz HospitalComment on above:Order Comment: Specimen Type: BLOOD SPECIMEN [facility] Facility[facility] Address: [address] [place], [place] [address]Performed By: #### 02611-8, 93939-5 #### [facility] CLIA [id number] [address] [place] [address] [place] AMERICAAnion gap [Moles/Vol]9 mmol/LNormal 9-18[facility] HospitalComment on above:Order Comment: Specimen Type: BLOOD SPECIMEN [facility] Facility[facility] Address: [address] [place], [place] [address]Performed By: #### 73231-6, 89198-1 #### [facility] CLIA [id number] [address] [place] [address] [place] AMERICAAST [Catalytic activity/Vol]11 U/L Mdn73-51XppqmmrvMelrosewakefield HospitalComment on above:Order Comment: Specimen Type: BLOOD SPECIMEN [facility] Facility[facility] Address: [address] [place], [place] [address]Performed By: #### 32579-1, 50902-8 #### [facility] CLIA [id number] [address] [place] [address] [place] AMERICABilirubin [Mass/Vol]0.6 mg/dLNormal 0.2-1.3[facility] HospitalComment on above:Order Comment: Specimen Type: BLOOD SPECIMEN [facility] Facility[facility] Address: [address] [place], [place] [address]Performed By: #### 80406-3, 87930-0 #### [facility] CLIA [id number] [address] [place] [address] [place] AMERICACalcium [Mass/Vol]9.1 mg/dLNormal 8.5-10.2[facility] HospitalComment on above:Order Comment: Specimen Type: BLOOD SPECIMEN [facility] Facility[facility] Address: [address] [place], [place] [address]Performed By: #### 28950-6, 90432-1 #### [facility] CLIA [id number] [address] [place] [address] [place] AMERICAChloride [Moles/Vol]100 mmol/LNormal 97-105Fafederal medical center, devens HospitalComment on above:Order Comment: Specimen Type: BLOOD SPECIMEN [facility] Facility[facility] Address: [address] [place], [place] [address]Performed By: #### 81840-0, 57174-9 #### [facility] CLIA [id number] [address] [place] [address] [place] AMERICACO2 [Moles/Vol]35 mmol/FKasn70-08 [facility] HospitalComment on above:Order Comment: Specimen Type: BLOOD SPECIMEN [facility] Facility[facility] Address: [address] [place], [place] [address]Performed By: #### 08560-0, 78282-0 #### [facility] CLIA [id number] [address] [place] [address] [place] AMERICACreatinine [Mass/Vol]1.62 mg/dLHigh 0.73-1.22[facility] on above:Order Comment: Specimen Type: BLOOD SPECIMEN [facility] Facility[facility] Address: [address] [place], [place] [address]Performed By: #### 98200-0, 03414-8 #### [facility] CLIA [id number] [address] [place] [address] [place] AMERICACreatinine and Glomerular filtration rate.predicted panel (S/P/Bld)47 mL/min/1.73m???Low>=60[facility] on above:Order Comment: Specimen Type: BLOOD SPECIMEN [facility] Facility[facility] Address: [address] [place], [place] [address]Result Comment: Estimated Glomerular Filtration Rate (eGFR) is calculated using the 2020 CKD-EPI cre atinine equation. This equation utilizes serum creatinine, sex, and age as parameters. The creatinine assay has traceable calibration to isotope dilution- mass spectrometry. Refer to KDIGO guidelines for clinical interpretation. In patients with unstable renal function, e.g. those with acute kidney injury, the eGFR may not accurately reflect actual GFR.Performed By: #### 45264-1, 02435-7 #### [facility] CLIA [id number] [address] [place] [address] [place] AMERICAGlucose [Mass/Vol]145 mg/yRAeij24-[address] [facility] on above:Order Comment: Specimen Type: BLOOD SPECIMEN [facility] Address: [address] [place], [place] [address]Result Comment: The [place] Diabetes [employer] (ADA) provides guidance for cutoff [...] Standards of Medical Care in Diabetes 2016, [place] [employer]. Diabetes Care. 2016.39(Suppl 1).Performed By: #### 97164-5, 23759-2 #### [facility] CLIA [id number] [address] [place] [address] [place] AMERICAPotassium [Moles/Vol]4.1 mmol/L Normal3.7-5.1[facility] HospitalComment on above:Order Comment: Specimen Type: BLOOD SPECIMEN [facility] Facility[facility] Address: [address] [place], [place] [address]Performed By: #### 71593-8, 60034-7 #### [facility] CLIA [id number] [address] [place] [address] [place] [Mass/Vol]6.3 g/dLNormal 6.3-8.0F[facility]ederal [facility] HospitalComment on above:Order Comment: Specimen Type: BLOOD SPECIMEN Ordering Facility: [facility] Address: [address] [place], [place] [address]Performed By: #### [id number], [id number] #### [facility] CLIA [id number] [address] [place] [address] [place]odium [Moles/Vol]144 mmol/LNormal 136-144[facility]afederal [facility] center, devens HospitalComment on above:Order Comment: Specimen Type: BLOOD SPECIMEN [facility] Facility: [facility] Address: [address] [place], [place] [address]Performed By: #### 46182-8, 34564-1 #### [facility] CLIA [id number] [address] [place] [address] [place] AMERICAUrea nitrogen [Mass/Vol]40 mg/dLHigh 9-24[facility]af[facility], devens HospitalComment on above:Order Comment: Specimen Type: BLOOD SPECIMEN [facility] Facility: [facility] Address: [address] [place], [place] [address]Performed By: #### 80866-9, 48355-4 #### [facility] CLIA [id number] [address] [place] [address] [place] OF AMERICAMagnesium SerPl-mCncon 10-27-2023 Magnesium [Mass/Vol]1.9 mg/dLNormal1.7-2.3[facility] HospitalComment on above: Order Comment: Specimen Type: BLOOD SPECIMEN [facility] Facility: [facility] Address: [address] [place], [place] [address]Performed By: #### 49346-1, 12439-7 #### [facility] CLIA [id number] [address] [place] [address] [place] AMERICAPhosphate SerPl-mCncon 10-27-2023 Phosphate [Mass/Vol]4.1 mg/dLNormal2.7-4.8[facility]af[facility], devens HospitalComment on above: Order Comment: Specimen Type: BLOOD SPECIMEN [facility] Facility: [facility] Address: [address] [place], [place] [address]Performed By: #### 52632-9, 43567-9 #### [facility] IA [id number] [address] [place] [address] [place] OF AMERICATHERAPY NTon [id number] NTHNO ID: [id number] Author: VELIA HARGROVE RRT Service: Respiratory Therapy [...] 26, 2023 TIME: 10:12 PM PAGER/CONTACT #: [facility] W Auto Differential panel (Bld)on 27-63-1416Bceegpmmq (Bld) [#/Vol]0.04 10*3/uLNormal <0.11[facility]view HospitalComment on above:Order Comment: Specimen Type: BLOOD SPECIMEN [facility] Facility: [facility] Address: [address] [place], [place] [address]Performed By: #### PTTAC #### [facility] CLIA [id number] [address] [place] [address] [place] AMERICABasophils/100 WBC (Bld)0.6 %Normal [facility] HospitalComment on above:Order Comment: Specimen Type: BLOOD SPECIMEN [facility]ing Facility: [facility] Address: [address] [place], [place] [address]Performed By: #### PTTAC #### [facility] CLIA [id number] [address] [place] [address] [place] AMERICADifferential cell count method Nom (Bld)AutoNormalFafederal medical center, devens HospitalComment on above:Order Comment: Specimen Type: BLOOD SPECIMEN [facility] Facility: [facility] Address: [address] [place], [place] [address]Performed By: #### PTTAC #### [facility] CLIA [id number] [address] [place] [address] [place] AMERICAEosinophils (Bld) [#/Vol]0.29 10*3/uLNormal<0.46Fafederal [facility] center, devens HospitalComment on above:Order Comment: Specimen Type: BLOOD SPECIMEN [facility] Facility: [facility] Address: [address] [place], [place] [address]Performed By: #### PTTAC #### [facility] CLIA [id number] [address] [place] [address] [place] AMERICAEosinophils/100 WBC (Bld)4.5 %Normal [facility] HospitalComment on above:Order Comment: Specimen Type: BLOOD SPECIMEN [facility]ing Facility: [facility] Address: [address] [place], [place] [address]Performed By: #### PTTAC #### [facility] CLIA [id number] [address] [place] [address] [place] AMERICAErythrocyte distribution width (RBC) [Ratio]16.3 %High11.5-15.0[facility]af[facility], devens HospitalComment on above:Order Comment: Specimen Type: BLOOD SPECIMEN [facility] Facility: [facility] Address: [address] [place], [place] [address]Performed By: #### PTTAC #### [facility] CLIA [id number] [address] [place] [address] [place] AMERICAHematocrit (Bld) [Volume fraction] 38.8 %Low39.0-51.0[facility]afederal [facility] center, devens HospitalComment on above:Order Comment: Specimen Type: BLOOD SPECIMEN [facility] Facility: [facility] Address: [address] [place], [place] [address]Performed By: #### PTTAC #### [facility] CLIA [id number] [address] [place] [address] [place] AMERICAHemoglobin (Bld) [Mass/Vol]11.6 g/dL Low13.0-17.0[facility]ling HospitalComment on above:Order Comment: Specimen Type: BLOOD SPECIMEN [facility] Facility: [facility] Address: [address] [place], [place] [address]Performed By: #### PTTAC #### [facility] IA [id number] [address] [place] [address] [place] AMERICAImmature granulocytes (Bld) [#/Vol] 0.06 10*3/uLNormal<0.10[facility] HospitalComment on above:Order Comment: Specimen Type: BLOOD SPECIMEN [facility] Facility: [facility] Address: [address] [place], [place] [address]Performed By: #### PTTAC #### [facility] CLIA [id number] [address] [place] [address] [place] AMERICAImmature granulocytes/100 WBC (Bld) 0.9 %NormalFafederal medical center, devens HospitalComment on above:Order Comment: Specimen Type: BLOOD SPECIMEN [facility]ing Facility: [facility] Address: [address] [place], [place] [address]Performed By: #### PTTAC #### [facility] CLIA [id number] [address] [place] [address] [place] OF AMERICALymphocytes (Bld) [#/Vol]0.94 10*3/uLLow1.00-4.00[facility] HospitalComment on above:Order Comment: Specimen Type: BLOOD SPECIMEN [facility] Facility: [facility] Address: [address] [place], [place] [address]Performed By: #### PTTAC #### [facility] CLIA [id number] [address] [place] [address] [place] CATHOLIC HEALTHLymphocytes/100 WBC (Bld)14.5 % NormalSterling HospitalComment on above:Order Comment: Specimen Type: BLOOD SPECIMEN [facility] Facility: [facility] Address: [address] [place], [place] [address]Performed By: #### PTTAC #### [facility] CLIA [id number] [address] [place] [address] (RBC) [Entitic mass]27.0 pg Mvfvrl42.0-34.0Fafederal [facility] center, devens HospitalComment on above:Order Comment: Specimen Type: BLOOD SPECIMEN [facility] Facility: [facility] Address: [address] [place], [place] [address]Performed By: #### PTTAC #### [facility] CLIA [id number] [address] [place], [place] [address]HC (RBC) [Mass/Vol]29.9 g/dLLow 30.5-36.0[facility]ling HospitalComment on above:Order Comment: Specimen Type: BLOOD SPECIMEN [facility] Facility: [facility] Address: [address] [place], [place] [address]Performed By: #### PTTAC #### [facility] CLIA [id number] [address] [place], [place] [address]V (RBC) [Entitic vol]90.2 fLNormal 80.0-100.0[facility]ling HospitalComment on above:Order Comment: Specimen Type: BLOOD SPECIMEN [facility] Facility: [facility] Address: [address] [place], [place] [address]Performed By: #### PTTAC #### [facility] CLIA [id number] [address] [place] [address] [place] AMERICAMonocytes (Bld) [#/Vol]0.71 10*3/uL Normal<0.87Fafederal [facility] center, devens HospitalComment on above:Order Comment: Specimen Type: BLOOD SPECIMEN [facility] Facility: [facility] Address: [address] [place], [place] [address]Performed By: #### PTTAC #### [facility] CLIA [id number] [place] [address] [place] AMERICAMonocytes/100 WBC (Bld)10.9 %Normal [facility] HospitalComment on above:Order Comment: Specimen Type: BLOOD SPECIMEN [facility]ing Facility: [facility] Address: [address] [place], [place] [address]Performed By: #### PTTAC #### [facility] CLIA [id number] [address] [place] [address] [place] AMERICANeutrophils (Bld) [#/Vol]4.45 10*3/uLNormal1.45-7.50Fafederal [facility], devens HospitalComment on above:Order Comment: Specimen Type: BLOOD SPECIMEN [facility] Facility: [facility] Address: [address] [place], [place] [address]Performed By: #### PTTAC #### [facility] CLIA [id number] [address] [place] [address] [place] AMERICANeutrophils/100 WBC (Bld)68.6 % NormalSterling HospitalComment on above:Order Comment: Specimen Type: BLOOD SPECIMEN [facility] Facility: [facility] Address: [address] [place], [place] [address]Performed By: #### PTTAC #### [facility] CLIA [id number] [address] [place] [address] [place] AMERICANucleated RBC (Bld) [#/Vol]10*3/uL Normal<0.01[facility]afederal [facility], devens HospitalComment on above:Order Comment: Specimen Type: BLOOD SPECIMEN [facility] Facility: [facility] Address: [address] [place], [place] [address]Performed By: #### PTTAC #### [facility] CLIA [id number] [address] [place] [address] [place] AMERICANucleated RBC/100 WBC (Bld) [Ratio] 0.0 /100 WBCNormalSterling HospitalComment on above:Order Comment: Specimen Type: BLOOD SPECIMEN [facility] Facility: [facility] Address: [address] [place], [place] [address]Performed By: #### PTTAC #### [facility] CLIA [id number] [address] [place] [address] [place] AMERICAPlatelet mean volume (Bld) [Entitic vol]9.0 fLNormal9.0-12.7Fhaverhill [facility] HospitalComment on above:Order Comment: Specimen Type: BLOOD SPECIMEN [facility] Facility: [facility] Address: [address] [place], [place] [address]Performed By: #### PTTAC #### [facility] CLIA [id number] [address] [place] [address] [place] AMERICAPlatelets (Bld) [#/Vol]247 10*3/uL Hvgqhr048-115Fmtsraei HospitalComment on above:Order Comment: Specimen Type: BLOOD SPECIMEN [facility] Facility: [facility] Address: [address] [place], [place] [address]Performed By: #### PTTAC #### [facility] CLIA [id number] [address] [place] [address] [place] AMERICARBC (Bld) [#/Vol]4.30 10*6/uLNormal 4.20-6.00[facility]af[facility], [facility] HospitalComment on above:Order Comment: Specimen Type: BLOOD SPECIMEN [facility] Facility: [facility] Address: [address] [place], [place] [address]Performed By: #### PTTAC #### [facility] CLIA [id number] [address] [place] [address] [place] AMERICAWBC (Bld) [#/Vol]6.49 10*3/uLNormal 3.70-11.00[facility] HospitalComment on above:Order Comment: Specimen Type: BLOOD SPECIMEN [facility] Facility: [facility] Address: [address] [place], [place] [address]Performed By: #### PTTAC #### [facility] [id number] [address] [place], [place] [address]CONSULTon [id number] ID: [id number] Author: STEFANIE BARRETT MD Service: Pulmonary Disease [...] ?F) Axillary 75 16 94 % -- 10/25/23 2146 -- -- -- 73 23 92 % -- 10/25/23 2139 -- -- -- 70 18 90 % [...] Drains, and Airways Li (more content not included)...NormalFairview HospitalCONSULT PROGon [id number] [facility] ID: [id number] Author: GORDO BUTLER APRN.CNP Service: Cardiovascular Medicine Author Type: Nurse Practitioner Type: Consult Progress Note Filed: 10/26/2023 14:03 Note Text: [facility] CARDIOVASCULAR MEDICINE PROGRESS NOTE (Template ID [id number]) SERVICE DATE: 10/26/2023 SERVICE TIME: 1115 PRIMARY [...] Skin: Warm and Dry Musculoskeletal: No deformities Neurologic/Psychiatric: Oriented to time, place AND person MEDICATIONS [...] and imaging results. Medication and Non-Pharmacologic VTE Prophylaxis/Anticoagulants Anticoagulant AND Antiplatelet Medications (From admission, onward) Start Dose Route Frequency Last Action Ordered Stop 10/25/23 0030 heparin 5,000 Units injection (Medical Risk Categories) 5,000 Units SUBCUTANEOUS EVERY 12 HOURS Given, 10/25 85710/25/23 0014 -- 10/24/23 0900 aspirin 81 mg chewable tab(s) 81 mg ORAL DAILY Given, 10/25 85710/24/23 0141 -- 10/25/23 001 activity [place] ([place] 10/24/23 014 activity - [place] ([place] VTE Prophylaxis: VTE prophylaxis appropriate ASSESSMENT [...] in the setting of demand ischemia - aspirin/statin/hydralazine 75 mg BID - will sign off, please contact with questions Case to be discussed with staff Dr. Motta SIGNATURE: Gordo Butler APRN.CNP PATIENT NAME: Nicole Lora DATE: October 26, 2023 TIME: 1:52 [facility] ID: [id number] Author: NAUN COUCH MD Service: Nephrology Author [...] Calcium, Total (mg/dL) Date Value 10/26/2023 9.1 Impression/Recommendations Mr. Lora is a 63 year old male with a past medical history of CKD III with baseline Cr up ~ 1.5, chronic respiratory failure on 4L home O2 since 05/2023, morbid obesity, insulin dependent diabetes, and left forefoot amputation admitted from home who presented to [facility] with complaints of worsening shortness of breath, bilateral lower extremity edema and ~ 10lb weight gain in the last few weeks. Patient reports multiple hospital admissions in 2023 at [facility] in [place] for fluid overload. 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 Address: [address] [place], [place] [address]Performed By: #### 77247-4, 35271-4 #### [facility] CLIA [id number] [address] [place] [address] [place] AMERICARenal function 2000 panelon 75-94-4343Xefnekc [Mass/Vol]3.3 g/dLLow3.9-4.9Fafederal [facility] center, devens HospitalComment on above: Order Comment: Specimen Type: BLOOD SPECIMEN [facility] Facility: [facility] Address: [address] [place], [place] [address]Performed By: #### 76874-3, 90472-6 #### [facility] CLIA [id number] [address] [place] [address] [place] AMERICAAnion gap [Moles/Vol]15 mmol/LNormal 9-18[facility] HospitalComment on above:Order Comment: Specimen Type: BLOOD SPECIMEN [facility] Facility: [facility] Address: [address] [place], [place] [address]Performed By: #### 76119-5, 41875-7 #### [facility] CLIA [id number] [address] [place] [address] [place] AMERICACalcium [Mass/Vol]9.1 mg/dLNormal 8.5-10.2[facility] HospitalComment on above:Order Comment: Specimen Type: BLOOD SPECIMEN [facility] Facility: [facility] Address: [address] [place], [place] [address]Performed By: #### 49813-0, 31366-8 #### [facility] CLIA [id number] [address] [place] [address] [place] AMERICAChloride [Moles/Vol]101 mmol/LNormal 97-105Sterling HospitalComment on above:Order Comment: Specimen Type: BLOOD SPECIMEN [facility] Facility[facility] Address: [address] [place], [place] [address]Performed By: #### 61982-2, 74427-7 #### [facility] CLIA [id number] [address] [place] [address] [place] AMERICACO2 [Moles/Vol]30 mmol/VYjeyit06-32 [facility] HospitalComment on above:Order Comment: Specimen Type: BLOOD SPECIMEN [facility] Facility: [facility] Address: [address] [place] [id number] By: #### 06883-7, 15204-8 #### [facility] CLIA [id number] [address] [place] [address] [place] AMERICACreatinine [Mass/Vol]1.84 mg/dLHigh 0.73-1.22[facility] on above:Order Comment: Specimen Type: BLOOD SPECIMEN [facility] Facility[facility] Address: [address] [place], [place] [address]Performed By: #### 35484-6, 57508-1 #### [facility] CLIA [id number] [address] [place] [address] [place] AMERICACreatinine and Glomerular filtration rate.predicted panel (S/P/Bld)40 mL/min/1.73m???Low>=60[facility] HospitalComcorewell [facility] on above:Order Comment: Specimen Type: BLOOD SPECIMEN [facility] Facility: [facility] Address: [address] [place], [place] [address]Result Comment: Estimated Glomerular Filtration Rate (eGFR) is calculated using the 2020 CKD-EPI cre atinine equation. This equation utilizes serum creatinine, sex, and age as parameters. The creatinine assay has traceable calibration to isotope dilution- mass spectrometry. Refer to KDIGO guidelines for clinical interpretation. In patients with unstable renal function, e.g. those with acute kidney injury, the eGFR may not accurately reflect actual GFR.Performed By: #### 32182-4, 89215-2 #### [facility] CLIA [id number] [address] [place] [address] [place] AMERICAGlucose [Mass/Vol]189 mg/xVLaaf47-[address] [facility] on above:Order Comment: Specimen Type: BLOOD SPECIMEN [facility] Facility: [facility] Address: [address] [place], [place] [address]Result Comment: The [place] Diabetes Association (ADA) provides guidance for cutoff [...] Standards of Medical Care in Diabetes 2016, [place] [employer]. Diabetes Care. 2016.39(Suppl 1).Performed By: #### 16227-1, 52424-5 #### [facility] CLIA [id number] [address] [place] [address] [place] AMERICAPhosphate [Mass/Vol]3.9 mg/dLNormal 2.7-4.8Fafederal [facility] center, devens HospitalComment on above:Order Comment: Specimen Type: BLOOD SPECIMEN [facility] Facility: [facility] Address: [address] [place], [place] [address]Performed By: #### 80776-0, 24881-8 #### [facility] CLIA [id number] [address] [place] [address] [place] AMERICAPotassium [Moles/Vol]4.3 mmol/L Normal3.7-5.1[facility] HospitalComment on above:Order Comment: Specimen Type: BLOOD SPECIMEN [facility] Facility[facility] Address: [address] [place], [place] [address]Performed By: #### 23368-7, 02279-9 #### [facility] CLIA [id number] [address] [place] [address] [place]ICASodium [Moles/Vol]146 mmol/LHigh 136-144Sterling HospitalComment on above:Order Comment: Specimen Type: BLOOD SPECIMEN [facility] Facility[facility] Address: [address] [place], [place] [address]Performed By: #### 12394-4, 90724-4 #### [facility] CLIA [id number] [address] [place] [address] [place] AMERICAUrea nitrogen [Mass/Vol]48 mg/dLHigh 9-24Fafederal medical center, devens HospitalComment on above:Order Comment: Specimen Type: BLOOD SPECIMEN [facility] Facility[facility] Address: [address] [place], [place] [address]Performed By: #### 81987-9, 39604-3 #### [facility] [id number] [address] [place] [address] [id number] HEALTHHNO ID: [id number] Author: CLARA HARDIN RT(R) Service: Radiology Author Type: Technologist Type: Allied [...] PATIENT PRESENTS WITH AN IMPLANTABLE OR ATTACHED BLOWER ROOM ATTENDANT: No RADIOLOGY DEPARTMENT: General X-ray: Exam(s) Completed: Chest X-Ray PERIPHERAL IV DATA: Not applicable SIGNED BY: RT Raffy(R) October 25, 2023 4:59 [facility] [id number] MGT [facility] ID: [id number] Author: BUTCH WETZEL RN Service: ? Author Type: Registered Nurse Type: Care Mgt Initial Assessment Filed: 10/25/2023 09:57 Note Text: CARE MANAGEMENT: ASSESSMENT AND DISCHARGE PLAN SERVICE DATE: October 25, 2023 SERVICE TIME: 9:55 AM PCP: Mounika Brooke MD, MD Primary Contact: Extended Emergency Contact Information Primary Emergency Contact: DAVIN ESCOBAR Mobile Relation: Daughter Secondary Emergency Contact: GenoMicah Relation: Son Admission Status: Inpatient [facility] Dis[facility] Planning requested by: Per Department Practice Potential Transition Plans To Be Determined Advance Directives Current Advance Directive: None Box Worker Attempted to Assist with AD Completion: Yes Action: Education Provided Current Living Arrangements and Support Lives with: Alone Type of Residence: Private Residence (Apartment or Condo) Support: Family members How do you manage to accomplish the following: Independent: Ambulation;Medication Management;Bathe/Shower;Transportation to appointments/community;Dress;Meals/Meal Prep;Going to the bathroom Current Services/Equipment Current [...] 25, 2023 TIME: 9:54 AM CONTACT #: [phone] Hospital W Auto Differential panel (Bld)on 91-14-0756Jtomgetbh (Bld) [#/Vol]0.03 10*3/uLNormal <0.11[facility] on above:Order Comment: Specimen Type: BLOOD SPECIMEN [facility] Address: [address] [place], [place] [address]Performed By: #### 18233-6, 84499-0 #### [facility] CLIA [id number] [address] [place] [address] [place] AMERICABasophils/100 WBC (Bld)0.4 %Normal [facility] HospitalComcore[facility] on above:Order Comment: Specimen Type: BLOOD SPECIMEN [facility] Address: [address] [place], [place] [address]Performed By: #### 62942-9, 14824-7 #### [facility] CLIA [id number] [address] [place] [address] [place] AMERICADifferential cell count method Nom (Bld)AutoNormalSterling HospitalComment on above:Order Comment: Specimen Type: BLOOD SPECIMEN [facility] Address: [address] [place], [place] [address]Performed By: #### 05592-1, 97819-3 #### [facility] CLIA [id number] [address] [place] [address] [place] AMERICAEosinophils (Bld) [#/Vol]0.22 10*3/uLNormal<0.46Fafederal medical center, devens HospitalComment on above:Order Comment: Specimen Type: BLOOD SPECIMEN [facility] Address: [address] [place], [place] [address]Performed By: #### 91420-0, 03592-7 #### [facility] CLIA [id number] [address] [place] [address] [place] AMERICAEosinophils/100 WBC (Bld)2.9 %Normal [facility] HospitalComment on above:Order Comment: Specimen Type: BLOOD SPECIMEN [facility] Facility[facility] Address: [address] [place], [place] [address]Performed By: #### 56217-6, 37161-2 #### [facility] CLIA [id number] [address] [place] [address] [place] AMERICAErythrocyte distribution width (RBC) [Ratio]16.5 %High11.5-15.0Sterling HospitalComment on above:Order Comment: Specimen Type: BLOOD SPECIMEN [facility] Facility: [facility] Address: [address] [place], [place] [address]Performed By: #### 75422-4, 52597-3 #### [facility] CLIA [id number] [address] [place] [address] [place] AMERICAHematocrit (Bld) [Volume fraction] 41.0 %Focfst75.0-51.0Fafederal medical center, devens HospitalComment on above:Order Comment: Specimen Type: BLOOD SPECIMEN [facility] Address: [address] [place], [place] [address]Performed By: #### 17333-7, 88313-9 #### [facility] CLIA [id number] [address] [place] [address] [place] AMERICAHemoglobin (Bld) [Mass/Vol]12.1 g/dL Low13.0-17.0Sterling HospitalComment on above:Order Comment: Specimen Type: BLOOD SPECIMEN [facility] Address: [address] [place], [place] [address]Performed By: #### 64818-9, 38660-9 #### [facility] CLIA [id number] [address] [place] [address] [place] AMERICAImmature granulocytes (Bld) [#/Vol] 0.04 10*3/uLNormal<0.10Fafederal [facility], devens HospitalComment on above:Order Comment: Specimen Type: BLOOD SPECIMEN [facility] Facility: [facility] Address: [address] [place], [place] [address]Performed By: #### 67607-1, 69835-9 #### [facility] CLIA [id number] [address] [place] [address] [place] AMERICAImmature granulocytes/100 WBC (Bld) 0.5 %NormalSterling HospitalComment on above:Order Comment: Specimen Type: BLOOD SPECIMEN [facility] Facility: [facility] Address: [address] [place], [place] [address]Performed By: #### 63242-7, 48591-2 #### [facility] CLIA [id number] [address] [place] [address] [place] AMERICALymphocytes (Bld) [#/Vol]0.80 10*3/uLLow1.00-4.00Fafederal medical center, devens HospitalComment on above:Order Comment: Specimen Type: BLOOD SPECIMEN [facility] Facility: [facility] Address: [address] [place], [place] [address]Performed By: #### 36246-6, 40934-7 #### [facility] CLIA [id number] [address] [place] [address] [place] AMERICALymphocytes/100 WBC (Bld)10.6 % NormalSterling HospitalComment on above:Order Comment: Specimen Type: BLOOD SPECIMEN [facility] Facility: [facility] Address: [address] [place], [place] [address]Performed By: #### 11513-8, 34645-3 #### [facility] CLIA [id number] [address] [place] [address] (RBC) [Entitic mass]26.8 pg Ayqjet12.0-34.0Fafederal medical center, devens HospitalComment on above:Order Comment: Specimen Type: BLOOD SPECIMEN [facility] Facility: [facility] Address: [address] [place], [place] [address]Performed By: #### 93536-8, 15592-5 #### [facility] CLIA [id number] [address] [place], [place] [address]HC (RBC) [Mass/Vol]29.5 g/dLLow 30.5-36.0Fafederal medical center, devens HospitalComment on above:Order Comment: Specimen Type: BLOOD SPECIMEN [facility] Facility: [facility] Address: [address] [place], [place] [address]Performed By: #### 82068-0, 21482-8 #### [facility] CLIA [id number] [address] [place] [address] (RBC) [Entitic vol]90.7 fLNormal 80.0-100.0Fafederal medical center, devens HospitalComment on above:Order Comment: Specimen Type: BLOOD SPECIMEN [facility]ing Facility: [facility] Address: [address] [place], [place] [address]Performed By: #### 68637-9, 14751-0 #### [facility] CLIA [id number] [address] [place], [place] [address]Monocytes (Bld) [#/Vol]0.64 10*3/uL Normal<0.87Fafederal [facility] center, devens HospitalComment on above:Order Comment: Specimen Type: BLOOD SPECIMEN [facility] Facility: [facility] Address: [address] [place], [place] [address]Performed By: #### 09943-8, 61810-4 #### [facility] CLIA [id number] [address] [place] [address] [place] AMERICAMonocytes/100 WBC (Bld)8.5 %Normal Sterling HospitalComment on above:Order Comment: Specimen Type: BLOOD SPECIMEN [facility] Facility: [facility] Address: [address] [place], [place] [address]Performed By: #### 98295-9, 72207-6 #### [facility] CLIA [id number] [address] [place] [address] [place] AMERICANeutrophils (Bld) [#/Vol]5.80 10*3/uLNormal1.45-7.50Sterling HospitalComment on above:Order Comment: Specimen Type: BLOOD SPECIMEN [facility] Facility: [facility] Address: [address] [place], [place] [address]Performed By: #### 54238-1, 73299-9 #### [facility] CLIA [id number] [address] [place] [address] [place] AMERICANeutrophils/100 WBC (Bld)77.1 % NormalSterling HospitalComment on above:Order Comment: Specimen Type: BLOOD SPECIMEN [facility] Facility: [facility] Address: [address] [place], [place] [address]Performed By: #### 24996-8, 25943-4 #### [facility] CLIA [id number] [address] [place] [address] [place] AMERICANucleated RBC (Bld) [#/Vol]10*3/uL Normal<0.01Sterling HospitalComment on above:Order Comment: Specimen Type: BLOOD SPECIMEN [facility] Facility: [facility] Address: [address] [place], [place] [address]Performed By: #### 34308-2, 28067-8 #### [facility] CLIA [id number] [address] [place] [address] [place] AMERICANucleated RBC/100 WBC (Bld) [Ratio] 0.0 /100 WBCNormalSterling HospitalComment on above:Order Comment: Specimen Type: BLOOD SPECIMEN Ordering Facility: [facility] Address: [address] [place], [place] [address]Performed By: #### 89022-4, 03623-7 #### [facility] CLIA [id number] [address] [place] [address] [place] AMERICAPlatelet mean volume (Bld) [Entitic vol]8.6 fLLow9.0-12.7Fhaverhill pavilion [facility] hospital HospitalComment on above:Order Comment: Specimen Type: BLOOD SPECIMEN [facility] Facility: [facility] Address: [address] [place], [place] [address]Performed By: #### 17257-7, 76640-2 #### [facility] CLIA [id number] [address] [place] [address] [place] AMERICAPlatelets (Bld) [#/Vol]235 10*3/uL Hpchsz479-150Aqufwuqt HospitalComment on above:Order Comment: Specimen Type: BLOOD SPECIMEN [facility]ing Facility: [facility] Address: [address] [place], [place] [address]Performed By: #### 76269-6, 09991-2 #### [facility] CLIA [id number] [address] [place] [address] [place] AMERICARBC (Bld) [#/Vol]4.52 10*6/uLNormal 4.20-6.00Fafederal medical center, devens HospitalComment on above:Order Comment: Specimen Type: BLOOD SPECIMEN [facility]ing Facility: [facility] Address: [address] [place], [place] [address]Performed By: #### 50671-5, 66681-0 #### [facility] CLIA [id number] [address] [place] [address] [place] AMERICAWBC (Bld) [#/Vol]7.53 10*3/uLNormal 3.70-11.00Sterling HospitalComment on above:Order Comment: Specimen Type: BLOOD SPECIMEN [facility] Facility: [facility] Address: [address] [place], [place] [address]Performed By: #### 14505-3, 27088-1 #### [facility] CLIA [id number] [address] STATES OF AMERICAECHOon 82-91-2493Deylaacfjptqhpif Echocardiography Report: Transthoracic Echo [facility] Date of service: 10/25/2023 2:47:07 PM Ordering physician: JUDI LOERA Indication: Chest Pain Symptom(s): Shortness of breath and Palpitations Technologist: Lizet Chacon [facility] Interpreting physician: Moisés Hassan MD [...] * * * Final * * * One Touch EMR Medical Image : [id number] [facility] HospitalGas and Carbon monoxide panel (BldV)on 49-25-8297Itnc excess Calc (BldV) [Moles/Vol]6 mmol/LHigh0-2FMassachusetts Mental Health CenterComment on above:Order Comment: Specimen Type: BLOOD SPECIMEN [facility] Facility: [facility] Address: [address] [place], [place] [address]Performed By: #### PTTAC #### [facility] CLIA [id number] [address] [place] [address] [place] AMERICABody tendfojhyag80.78 [degF]Normal [facility] HospitalComment on above:Order Comment: Specimen Type: BLOOD SPECIMEN [facility] Facility: [facility] Address: [address] [place], [place] [address]Performed By: #### PTTAC #### [facility] IA [id number] [address] [place] [address] [place] AMERICACalcium.ionized (Bld) [Mass/Vol]1.15 mmol/LNormal1.08-1.30Fafederal [facility] center, devens HospitalComment on above:Order Comment: Specimen Type: BLOOD SPECIMEN [facility] Facility: [facility] Address: [address] [place], [place] [address]Performed By: #### PTTAC #### [facility] IA [id number] [address] [place] [address] [place] AMERICACalcium.ionized adjusted to pH 7.4 (BldA) [Moles/Vol]1.12 mmol/LNormal1.08-1.30Sterling HospitalComment on above: Order Comment: Specimen Type: BLOOD SPECIMEN [facility] Facility: [facility] Address: [address] [place], [place] [address]Performed By: #### PTTAC #### [facility] IA [id number] [address] [place] [address] [place] AMERICACarboxyhemoglobin (BldV) [Mass fraction]2.7 %High0.0-2.0Fafederal medical center, devens HospitalComment on above:Order Comment: Specimen Type: BLOOD SPECIMEN [facility] Facility: [facility] Address: [address] [place], [place] [address]Result Comment: Carboxyhemoglobin Reference Range for Smokers: 2.0-8.0%Performed By: #### PTTAC #### [facility] CLIA [id number] [address] [place] [address] [place] AMERICAChloride [Moles/Vol]105 mmol/LNormal 97-105Fafederal [facility] center, devens HospitalComment on above:Order Comment: Specimen Type: BLOOD SPECIMEN [facility] Facility: [facility] Address: [address] [place], [place] [address]Performed By: #### PTTAC #### [facility] CLIA [id number] [address] [place] [address] [place] AMERICACO2 (BldV) [Partial pressure]61 mm[Hg]Jlkx23-41Pznrgkdb HospitalComment on above:Order Comment: Specimen Type: BLOOD SPECIMEN [facility] Facility: [facility] Address: [address] [place], [place] [address]Performed By: #### PTTAC #### [facility] CLIA [id number] [address] [place] [address] [place] AMERICACO2 adjusted to patient's actual temperature (BldV) [Partial pressure]NormalSterling HospitalComment on above: Order Comment: Specimen Type: BLOOD SPECIMEN [facility] Facility: [facility] Address: [address] [place], [place] [address]Performed By: #### PTTAC #### [facility] CLIA [id number] [address] [place] [address] [place] ILLRWOMGBW137 %NormalSterling Hospital Comment on above:Order Comment: Specimen Type: BLOOD SPECIMEN [facility] Facility: [facility] Address: [address] [place], [place] [address]Performed By: #### PTTAC #### [facility] CLIA [id number] [address] [place] [address] [place] AMERICAGlucose [Mass/Vol]152 mg/dLHigh 60-105Sterling HospitalComment on above:Order Comment: Specimen Type: BLOOD SPECIMEN [facility] Facility: [facility] Address: [address] [place], [place] [address]Performed By: #### PTTAC #### [facility] CLIA [id number] [address] [place] [address] [place] AMERICAHCO3 (Bld) [Moles/Vol]33 mmol/LHigh 24-28Sterling HospitalComment on above:Order Comment: Specimen Type: BLOOD SPECIMEN [facility] Facility: [facility] Address: [address] [place], [place] [address]Performed By: #### PTTAC #### [facility] CLIA [id number] [address] [place] [address] [place] AMERICAHematocrit (Bld) [Volume fraction] 38.3 %Low39.0-51.0Sterling HospitalComment on above:Order Comment: Specimen Type: BLOOD SPECIMEN [facility] Facility: [facility] Address: [address] [place], [place] [address]Performed By: #### PTTAC #### [facility] IA [id number] [address] [place] [address] [place] AMERICAHemoglobin (Bld) [Mass/Vol]12.4 g/dL Low13.0-17.0Sterling HospitalComment on above:Order Comment: Specimen Type: BLOOD SPECIMEN [facility] Facility: [facility] Address: [address] [place], [place] [address]Performed By: #### PTTAC #### [facility] IA [id number] [address] [place] [address] [place] AMERICALactate [Moles/Vol]0.9 mmol/LNormal 0.5-2.2Fhaverhill [facility] HospitalComment on above:Order Comment: Specimen Type: BLOOD SPECIMEN [facility] Facility: [facility] Address: [address] [place], [place] [address]Performed By: #### PTTAC #### [facility] IA [id number] [address] [place] [address] [place] AMERICAMethemoglobin (Bld) [Mass fraction] 1.2 %Normal0.0-1.5Fhaver[facility] HospitalComment on above:Order Comment: Specimen Type: BLOOD SPECIMEN [facility] Facility: [facility] Address: [address] [place], [place] [address]Performed By: #### PTTAC #### [facility] IA [id number] [address] [place] [address] [place] AMERICAO2 THERAPYPositiveNormalSterling HospitalComment on above:Order Comment: Specimen Type: BLOOD SPECIMEN [facility] Facility: [facility] Address: [address] [place], [place] [address]Performed By: #### PTTAC #### [facility] IA [id number] [address] [place] [address] [place] AMERICAOxygen (BldV) [Partial pressure]107 mm[Hg]Qbdf39-53Xxzurfuj HospitalComment on above:Order Comment: Specimen Type: BLOOD SPECIMEN [facility] Facility: [facility] Address: [address] [place], [place] [address]Performed By: #### PTTAC #### [facility] CLIA [id number] [address] [place] [address] [place] AMERICAOxygen adjusted to patient's actual temperature (BldV) [Partial pressure]NormalSterling HospitalComment on above: Order Comment: Specimen Type: BLOOD SPECIMEN [facility] Facility: [facility] Address: [address] [place], [place] [address]Performed By: #### PTTAC #### [facility] CLIA [id number] [address] [place] [address] [place] AMERICAOxygen saturation in Venous blood98 %Tduh02-48Ciugzfys HospitalComment on above:Order Comment: Specimen Type: BLOOD SPECIMEN [facility] Facility: [facility] Address: [address] [place], [place] [address]Performed By: #### PTTAC #### [facility] CLIA [id number] [address] [place] [address] [place] AMERICAOxyhemoglobin (BldV) [Mass fraction] 94 %Yfit71-30Braartsl HospitalComment on above:Order Comment: Specimen Type: BLOOD SPECIMEN [facility] Facility[facility] Address: [address] [place], [place] [address]Performed By: #### PTTAC #### [facility] CLIA [id number] [address] [place] [address] [place] AMERICApH (BldV)7.35 [pH]Normal7.32-7.42 Sterling HospitalComment on above:Order Comment: Specimen Type: BLOOD SPECIMEN [facility] Facility: [facility] Address: [address] [place], [place] [address]Performed By: #### PTTAC #### [facility] CLIA [id number] [address] [place] [address] [place] AMERICApH adjusted to patient's actual temperature (BldV)[facility] HospitalComment on above:Order Comment: Specimen Type: BLOOD SPECIMEN [facility] Facility: [facility] Address: [address] [place], [place] [address]Performed By: #### PTTAC #### [facility] CLIA [id number] [address] [place] [address] [place] AMERICAPotassium [Moles/Vol]4.1 mmol/L Normal3.5-5.0[facility] Hospital of New Englandment on above:Order Comment: Specimen Type: BLOOD SPECIMEN [facility] Address: [address] [place], [place] [address]Performed By: #### PTTAC #### [facility] CLIA [id number] [place] [address] [place] AMERICASodium [Moles/Vol]140 mmol/LNormal 136-144Fafederal medical center, devens HospitalComment on above:Order Comment: Specimen Type: BLOOD SPECIMEN [facility] Facility: [facility] Address: [address] [place], [place] [address]Performed By: #### PTTAC #### [facility] CLIA [id number] [address] [place] [address] [place] AMERICAHISTORY PHYSICALon [id number] PHYSICALHNO ID: [id number] Author: ANUPAMA ALFRED MD Service: Critical Care Author Type: Nurse Practitioner Type: H&P Filed: 10/25/2023 03:12 Note Text: Attestation signed by Anupama Alfred MD at 10/25/2023 3:12 AM [facility] STAFF PHYSICIAN NOTE OF [...] subcutaneously three times daily before meals. INSULIN GLARGINE,HUM.REC.ANLOG (LANTUS SOLOSTAR SUBCUTANEOUS) Inject 40 [...] general medicine of [place] (more content not included)...Normal [facility] HospitalLipid 1995 panelon 70-98-6231Kaecryqvjlq [Mass/Vol]104 mg/dL Normal<200Fafederal medical center, devens HospitalComment on above:Order Comment: Specimen Type: BLOOD SPECIMEN [facility] Facility: [facility] Address: [address] [place] [address] Comment: <200 mg/dL, Desirable 200-239 mg/dL, Borderline high >239 mg/dL, HighPerformed By: #### 15679-8, 37899-6 #### [facility] CLIA [id number] [address] [place] [address] [place] AMERICACholesterol in HDL [Mass/Vol]61 mg/dLNormal>39Fafederal medical center, devens HospitalComment on above:Order Comment: Specimen Type: BLOOD SPECIMEN [facility] Facility: [facility] Address: [address] [place] [address] Comment: 40-59 mg/dL, Acceptable >59 mg/dL, High: Negative risk factor for coronary heart disease <40 mg/dL, Low: Positive risk factor for coronary heart diseasePerformed By: #### 64311-0, 02684-1 #### [facility] CLIA [id number] [address] [place] [address] [place] AMERICACholesterol in LDL [Mass/Vol]33 mg/dLNormal<100Sterling HospitalComment on above:Order Comment: Specimen Type: BLOOD SPECIMEN [facility] Facility: [facility] Address: [address] [place] [address] Comment: <100 mg/dL, Optimal 100-129 mg/dL, Near optimal/above optimal 130-159 mg/dL, Borderline high 160-189 mg/dL, High >189 mg/dL, Very high Secondary prevention optimal LDL Cholesterol levels are recommended to be < 70 mg/dLPerformed By: #### 84779-6, 43959-1 #### [facility] CLIA [id number] [address] [place] [address] [place] AMERICACholesterol in LDL/Cholesterol in HDL [Mass ratio]0.54 {ratio}Normal<2.54Fafederal medical center, devens HospitalComment on above:Order Comment: Specimen Type: BLOOD SPECIMEN [facility] Facility: [facility] Address: [address] [place], [place] [address]Result Comment: Reference: 1. National Cholesterol Education Program ATP III Guideline At-A-Glance Quick Desk Reference: National Heart, Lung, and Blood [place]. National Institutes of Health. 2001: NIH Publication No. 01-3305. 2. An International Atherosclerosis Society position paper: global recommendations for the management of dyslipidemia: executive summary, Atherosclerosis. 2014: 232(2):410-413.Performed By: #### 54108-8, 48982-9 #### [facility] CLIA [id number] [address] [place] [address] [place] AMERICACholesterol in VLDL [Mass/Vol]10 mg/dLNormal<30Fafederal medical center, devens HospitalComment on above:Order Comment: Specimen Type: BLOOD SPECIMEN [facility] Facility: [facility] Address: [address] [place], [place] [address]Performed By: #### 98244-8, 77058-2 #### [facility] CLIA [id number] [address] [place] [address] [place] AMERICACholesterol non HDL [Mass/Vol]43 mg/dLNormal<130Fafederal medical center, devens HospitalComment on above:Order Comment: Specimen Type: BLOOD SPECIMEN [facility] Facility[facility] Address: [address] [place], [place] [address]Result Comment: <130 mg/dL, Optimal 130-159 mg/dL, Near optimal/above optimal 160-189 mg/dL, Borderline high 190-219 mg/dL, High >219 mg/dL, Very high Secondary prevention optimal non HDL Cholesterol levels are recommended to be <100 mg/dLPerformed By: #### 24278-9, 36311-2 #### [facility] CLIA [id number] [address] [place] [address] [place] AMERICACholesterol.total/Cholesterol in HDL [Mass ratio]1.70 {ratio}Normal<5.10Fafederal medical center, devens HospitalComment on above:Order Comment: Specimen Type: BLOOD SPECIMEN [facility] Facility: [facility] Address: [address] [place], [place] [address]Performed By: #### 96166-1, 43480-5 #### [facility] CLIA [id number] [address] [place] [address] [place] AMERICAFASTING TIME12 hrsNormalFafederal medical center, devens HospitalComment on above:Order Comment: Specimen Type: BLOOD SPECIMEN [facility] Facility: [facility] Address: [address] [place], [place] [address]Performed By: #### 95607-0, 11539-8 #### [facility] CLIA [id number] [address] [place] [address] [place] AMERICATriglyceride [Mass/Vol]52 mg/dL Normal<150Fafederal medical center, devens HospitalComment on above:Order Comment: Specimen Type: BLOOD SPECIMEN [facility] Facility: [facility] Address: [address] [place], [place] [address]Result Comment: <150 mg/dL, Normal 150-199 mg/dL, Borderline high 200-499 mg/dL, High >499 mg/dL, Very highPerformed By: #### 67537-5, 25602-4 #### [facility] CLIA [id number] [address] [place] [address] [place] AMERICAMagnesium SerPl-mCncon 10-25-2023 Magnesium [Mass/Vol]2.0 mg/dLNormal1.7-2.3Fairsamar[facility] HospitalComment on above: Order Comment: Specimen Type: BLOOD SPECIMEN [facility] Facility[facility] Address: [address] [place], [place] [address]Performed By: #### 26560-8, 01962-3 #### [facility] CLIA [id number] [address] [place] [address] [place] AMERICARenal function 2000 panelon 45-83-3175Nprxydk [Mass/Vol]3.4 g/dLLow3.9-4.9Fafederal medical center, devens HospitalComment on above: Order Comment: Specimen Type: BLOOD SPECIMEN [facility] Facility[facility] Address: [address] [place], [place] [address]Performed By: #### 03069-0, 05214-7 #### [facility] CLIA [id number] [address] [place] [address] [place] AMERICAAnion gap [Moles/Vol]10 mmol/LNormal 9-18Fha[facility] HospitalComment on above:Order Comment: Specimen Type: BLOOD SPECIMEN [facility] Facility: [facility] Address: [address] [place], [place] [address]Performed By: #### 25156-3, 39656-7 #### [facility] CLIA [id number] [address] [place] [address] [place] AMERICACalcium [Mass/Vol]9.1 mg/dLNormal 8.5-10.2Fha[facility] HospitalComment on above:Order Comment: Specimen Type: BLOOD SPECIMEN [facility] Facility: [facility] Address: [address] [place], [place] [address]Performed By: #### 78466-4, 89422-0 #### [facility] CLIA [id number] [address] [place] [address] [place] AMERICAChloride [Moles/Vol]102 mmol/LNormal 97-105Fafederal [facility] center, [facility]ens HospitalComment on above:Order Comment: Specimen Type: BLOOD SPECIMEN [facility] Facility: [facility] Address: [address] [place], [place] [address]Performed By: #### 19640-1, 23676-8 #### [facility] CLIA [id number] [address] [place] [address] [place] AMERICACO2 [Moles/Vol]31 mmol/VKqta09-41 [facility] HospitalComment on above:Order Comment: Specimen Type: BLOOD SPECIMEN Ordering Facility: [facility] Address: [address] [place], [place] [address]Performed By: #### 63190-3, 10975-7 #### [facility] CLIA [id number] [address] [place] [address] [place] AMERICACreatinine [Mass/Vol]1.89 mg/dLHigh 0.73-1.22[facility]afederal [facility], devens HospitalComment on above:Order Comment: Specimen Type: BLOOD SPECIMEN [facility]ing Facility: [facility] Address: [address] [place], [place] [address]Performed By: #### 14311-0, 28935-9 #### [facility] CLIA [id number] [address] [place] [address] [place] AMERICACreatinine and Glomerular filtration rate.predicted panel (S/P/Bld)39 mL/min/1.73m???Low>=60[facility] on above:Order Comment: Specimen Type: BLOOD SPECIMEN [facility] Facility: [facility] Address: [address] [place], [place] [address]Result Comment: Estimated Glomerular Filtration Rate (eGFR) is calculated using the 2020 CKD-EPI cre atinine equation. This equation utilizes serum creatinine, sex, and age as parameters. The creatinine assay has traceable calibration to isotope dilution- mass spectrometry. Refer to KDIGO guidelines for clinical interpretation. In patients with unstable renal function, e.g. those with acute kidney injury, the eGFR may not accurately reflect actual GFR.Performed By: #### 87658-0, 25580-6 #### [facility] CLIA [id number] [address] [place] [id number] [place] OF AMERICAGlucose [Mass/Vol]149 mg/gZRybi10-[address] [facility] on above:Order Comment: Specimen Type: BLOOD SPECIMEN [facility] Facility: [facility] Address: [address] [place] [address] Comment: The [place] Diabetes Association (ADA) provides guidance for cutoff [...] Standards of Medical Care in Diabetes 2016, [place] [employer]. Diabetes Care. 2016.39(Suppl 1).Performed By: #### 65222-1, 93044-9 #### [facility] CLIA [id number] [address] [place] [id number] [place] AMERICAPhosphate [Mass/Vol]4.4 mg/dLNormal 2.7-4.8Fafederal medical center, devens HospitalComment on above:Order Comment: Specimen Type: BLOOD SPECIMEN [facility] Facility: [facility] Address: [address] [place], [place] [address]Performed By: #### 91739-6, 45998-4 #### [facility] CLIA [id number] [address] [place] [address] [place] AMERICAPotassium [Moles/Vol]4.3 mmol/L Normal3.7-5.1F[facility] HospitalComment on above:Order Comment: Specimen Type: BLOOD SPECIMEN [facility] Facility: [facility] Address: [address] [place], [place] [address]Performed By: #### 48364-4, 89983-2 #### [facility] CLIA [id number] [address] [place] [address] [place] AMERICASodium [Moles/Vol]143 mmol/LNormal 136-144Fafederal [facility] center, devens HospitalComment on above:Order Comment: Specimen Type: BLOOD SPECIMEN [facility] Facility: [facility] Address: [address] [place], [place] [address]Performed By: #### 35847-6, 38625-9 #### [facility] CLIA [id number] [address] [place] [address] [place] AMERICAUrea nitrogen [Mass/Vol]54 mg/dLHigh 9-24Fafederal medical center, devens HospitalComment on above:Order Comment: Specimen Type: BLOOD SPECIMEN [facility] Facility: [facility] Address: [address] [place], [place] [address]Performed By: #### 99594-4, 37858-1 #### [facility] CLIA [id number] [address] [place] [address] [place] OF AMERICASTAPH AUREUS PCRon 10-25-2023S. aureus and MRSA panel ERIBERTO+probe (Nose)NormalNegativeSterling HospitalComment on above:Order Comment: Specimen Type: SWAB OF INTERNAL NOSEOrdering Facility: [facility] Address: [address] [place], [place] [address]Result Comment: Negative for Staphylococcus aureus by PCR. Negative for MRSA by PCRPerformed By: #### SAPCR ####[facility] LABCLIA [id number] [place] [address] [place] OF AMERICAXR CHEST 1V FRONTALon [id number] CHEST 1V FRONTAL* * *Final Report* * * DATE OF [...] left pleural effusion demonstrating slight interval progression. Publications Inspector: PSCB Transcribe Date/Time: Oct 25 2023 7:29A Dictated by : KASHIF PIERSON MD This examination was interpreted and the report reviewed and electronically signed by: KASHIF PIERSON MD on Oct 25 2023 7:30AM EST [id number] Memorial Hospital [id number] HEALTHHNO ID: [id number] Author: ABDIFATAH PAGE RDMS Service: Radiology Author [...] PATIENT PRESENTS WITH AN IMPLANTABLE OR ATTACHED BLOWER ROOM ATTENDANT: No RADIOLOGY DEPARTMENT: Ultrasound PERIPHERAL IV DATA: Not applicable SIGNED BY: Abdifatah Page RDMS October 24, 2023 4:59 PMNormalMelrosewakefield HospitalARTERIAL BLOOD GASESon 10-24-2023 Base excess Calc (Bld) [Moles/Vol]6 mmol/LHigh0-2Fha[facility] HospitalComment on above:Order Comment: Specimen Type: BLOOD SPECIMEN [facility] Facility: [facility] Address: [address] [place], [place] [address]Performed By: #### 00874-2, 51368-5 #### [facility] CLIA [id number] [address] [place] [address] [place] AMERICABody gzoqfxebjqn20.6 [degF]Normal [facility]wakefield HospitalComment on above:Order Comment: Specimen Type: BLOOD SPECIMEN [facility] Facility: [facility] Address: [address] [place], [place] [address]Performed By: #### 71125-7, 99105-1 #### [facility] CLIA [id number] [address] [place] [address] STATES OF AMERICACalcium.ionized (Bld) [Mass/Vol]1.23 mmol/LNormal1.08-1.30Melrosewakefield HospitalComment on above:Order Comment: Specimen Type: BLOOD SPECIMEN [facility] Facility: [facility] Address: [address] [place], [place] [address]Performed By: #### 86690-0, 39065-6 #### [facility] CLIA [id number] [address] [place] [address] OF AMERICACalcium.ionized adjusted to pH 7.4 (BldA) [Moles/Vol]1.16 mmol/LNormal1.08-1.30Melrosewakefield HospitalComment on above: Order Comment: Specimen Type: BLOOD SPECIMEN [facility] Facility: [facility] Address: [address] [place], [place] [address]Performed By: #### 13264-2, 97202-2 #### [facility] CLIA [id number] [address] [place] [address] [place] AMERICACarboxyhemoglobin (BldA) [Mass fraction]1.3 %Normal0.0-2.0Sterling HospitalComment on above:Order Comment: Specimen Type: BLOOD SPECIMEN [facility] Facility: [facility] Address: [address] [place], [place] [address]Result Comment: Carboxyhemoglobin Reference Range for Smokers: 2.0-8.0%Performed By: #### 36224-3, 84463-8 #### [facility] CLIA [id number] [address] [place] [address] [place] AMERICAChloride [Moles/Vol]104 mmol/LNormal 97-105Sterling HospitalComment on above:Order Comment: Specimen Type: BLOOD SPECIMEN [facility] Facility: [facility] Address: [address] [place], [place] [address]Performed By: #### 49739-9, 72101-0 #### [facility] CLIA [id number] [address] [place] [address] [place] AMERICACO2 (Bld) [Partial pressure]72 mm Hg Ospk58-68Kfdtdphg HospitalComment on above:Order Comment: Specimen Type: BLOOD SPECIMEN [facility] Facility: [facility] Address: [address] [place], [place] [address]Performed By: #### 16401-9, 89875-6 #### [facility] CLIA [id number] [address] [place] [address] [place] AMERICAGlucose [Mass/Vol]88 mg/dLNormal 60-105Sterling HospitalComment on above:Order Comment: Specimen Type: BLOOD SPECIMEN [facility] Facility: [facility] Address: [address] [place], [place] [address]Performed By: #### 31155-7, 96929-1 #### [facility] CLIA [id number] [address] [place] [address] [place] AMERICAHCO3 (Bld) [Moles/Vol]34 mmol/LHigh 22-26Sterling HospitalComment on above:Order Comment: Specimen Type: BLOOD SPECIMEN [facility] Facility: [facility] Address: [address] [place], [place] [address]Performed By: #### 51474-4, 17349-3 #### [facility] CLIA [id number] [address] [place] [address] [place] AMERICAHematocrit (Bld) [Volume fraction] 38.4 %Low39.0-51.0Sterling HospitalComment on above:Order Comment: Specimen Type: BLOOD SPECIMEN [facility] Facility: [facility] Address: [address] [place], [place] [address]Performed By: #### 64955-8, 28764-0 #### [facility] CLIA [id number] [address] [place] [address] [place] AMERICAHemoglobin (Bld) [Mass/Vol]12.5 g/dL Low13.0-17.0Sterling HospitalComment on above:Order Comment: Specimen Type: BLOOD SPECIMEN [facility] Facility: [facility] Address: [address] [place], [place] [address]Performed By: #### 88425-9, 07841-6 #### [facility] CLIA [id number] [address] [place] [address] [place] AMERICALactate [Moles/Vol]0.9 mmol/LNormal 0.5-2.2[facility] HospitalComment on above:Order Comment: Specimen Type: BLOOD SPECIMEN [facility] Facility: [facility] Address: [address] [place], [place] [address]Performed By: #### 90423-8, 23316-4 #### [facility] CLIA [id number] [address] [place] [address] [place] OF AMERICALITERS4 Liters/minNormalSterling HospitalComment on above:Order Comment: Specimen Type: BLOOD SPECIMEN [facility] Facility: [facility] Address: [address] [place], [place] [address]Performed By: #### 79396-4, 01333-8 #### [facility] CLIA [id number] [address] [place] [address] [place] AMERICAMethemoglobin (Bld) [Mass fraction] 1.3 %Normal0.0-1.5[facility] HospitalComment on above:Order Comment: Specimen Type: BLOOD SPECIMEN [facility] Facility: [facility] Address: [address] [place], [place] [address]Performed By: #### 05227-0, 45675-5 #### [facility] CLIA [id number] [address] [place] [address] [facility] OF AMERICAO2 THERAPYNC = Nasal CannulaNormal Sterling HospitalComment on above:Order Comment: Specimen Type: BLOOD SPECIMEN [facility] Facility: [facility] Address: [address] [place], [place] [address]Performed By: #### 70111-8, 83969-3 #### [facility] CLIA [id number] [address] [place] [address] [place] AMERICAOxygen (Bld) [Partial pressure]73 mm WcJpf15-66Oseysrki HospitalComment on above:Order Comment: Specimen Type: BLOOD SPECIMEN [facility] Facility: [facility] Address: [address] [place], [place] [address]Performed By: #### 08985-3, 95074-4 #### [facility] CLIA [id number] [address] [place] [address] [place] AMERICAOxyhemoglobin (BldA) [Mass fraction] 91 %Pbm79-18FqoemfsqMelrosewakefield HospitalComcorewell health [facility] on above:Order Comment: Specimen Type: BLOOD SPECIMEN [facility] Facility[facility] Address: [address] [place], [place] [address]Performed By: #### 14022-9, 90778-2 #### [facility] CLIA [id number] [address] [place] [address] [place] AMERICApH (Bld)7.30 [pH]Low7.35-7.45 [facility]field HospitalComment on above:Order Comment: Specimen Type: BLOOD SPECIMEN [facility] Facility: [facility] Address: [address] [place], [place] [address]Performed By: #### 06750-9, 82571-7 #### [facility] CLIA [id number] [address] [place] [address] [place] AMERICAPotassium [Moles/Vol]4.2 mmol/L Normal3.5-5.0Sterling HospitalComment on above:Order Comment: Specimen Type: BLOOD SPECIMEN [facility] Facility[facility] Address: [address] [place], [place] [address]Performed By: #### 32241-2, 62477-7 #### [facility] CLIA [id number] [address] [place] [address] [place] AMERICASodium [Moles/Vol]141 mmol/LNormal 136-144Fafederal [facility], devens HospitalComment on above:Order Comment: Specimen Type: BLOOD SPECIMEN [facility] Facility: [facility] Address: [address] [place], [place] [address]Performed By: #### 51918-5, 93670-4 #### [facility] CLIA [id number] [address] [place] [address] [place] AMERICABase excess Calc (Bld) [Moles/Vol]5 mmol/LHigh0-2[facility] HospitalComment on above:Order Comment: Specimen Type: BLOOD SPECIMEN [facility] Facility: [facility] Address: [address] [place], [place] [address]Performed By: #### PTTAC #### [facility] IA [id number] [address] [place] [address] [place] AMERICABody saihbwvjryw77.6 [degF]Normal Sterling HospitalComment on above:Order Comment: Specimen Type: BLOOD SPECIMEN [facility] Facility[facility] Address: [address] [place], [place] [address]Performed By: #### PTTAC #### [facility] CLIA [id number] [address] [place] [address] [place] AMERICACalcium.ionized (Bld) [Mass/Vol]1.22 mmol/LNormal1.08-1.30Fafederal medical center, devens HospitalComment on above:Order Comment: Specimen Type: BLOOD SPECIMEN [facility] Facility[facility] Address: [address] [place], [place] [address]Performed By: #### PTTAC #### [facility] CLIA [id number] [address] [place] [address] [place]ICACalcium.ionized adjusted to pH 7.4 (BldA) [Moles/Vol]1.15 mmol/LNormal1.08-1.30Sterling HospitalComment on above: Order Comment: Specimen Type: BLOOD SPECIMEN [facility] Facility: [facility] Address: [address] [place], [place] [address]Performed By: #### PTTAC #### [facility] CLIA [id number] [address] [place] [address] [place] AMERICACarboxyhemoglobin (BldA) [Mass fraction]1.7 %Normal0.0-2.0Sterling HospitalComment on above:Order Comment: Specimen Type: BLOOD SPECIMEN [facility] Facility: [facility] Address: [address] [place], [place] [address]Result Comment: Carboxyhemoglobin Reference Range for Smokers: 2.0-8.0%Performed By: #### PTTAC #### [facility] CLIA [id number] [address] [place] [address] [place] AMERICAChloride [Moles/Vol]101 mmol/LNormal 97-105Sterling HospitalComment on above:Order Comment: Specimen Type: BLOOD SPECIMEN [facility] Facility: [facility] Address: [address] [place], [place] [address]Performed By: #### PTTAC #### [facility] IA [id number] [address] [place] [address] [place] AMERICACO2 (Bld) [Partial pressure]70 mm Hg Uhtx78-50Teinuvwu HospitalComment on above:Order Comment: Specimen Type: BLOOD SPECIMEN [facility] Facility[facility] Address: [address] [place], [place] [address]Performed By: #### PTTAC #### [facility] CLIA [id number] [address] [place] [address] [place] AMERICAGlucose [Mass/Vol]210 mg/dLHigh 60-105Sterling HospitalComment on above:Order Comment: Specimen Type: BLOOD SPECIMEN [facility] Facility[facility] Address: [address] [place], [place] [address]Performed By: #### PTTAC #### [facility] CLIA [id number] [place] [address] [place] AMERICAHCO3 (Bld) [Moles/Vol]34 mmol/LHigh 22-26Sterling HospitalComment on above:Order Comment: Specimen Type: BLOOD SPECIMEN [facility] Facility: [facility] Address: [address] [place], [place] [address]Performed By: #### PTTAC #### [facility] CLIA [id number] [address] [place] [address] [place] AMERICAHematocrit (Bld) [Volume fraction] 37.5 %Low39.0-51.0Sterling HospitalComment on above:Order Comment: Specimen Type: BLOOD SPECIMEN [facility] Facility: [facility] Address: [address] [place], [place] [address]Performed By: #### PTTAC #### [facility] CLIA [id number] [address] [place] [address] [place] AMERICAHemoglobin (Bld) [Mass/Vol]12.2 g/dL Low13.0-17.0Sterling HospitalComment on above:Order Comment: Specimen Type: BLOOD SPECIMEN [facility] Facility: [facility] Address: [address] [place], [place] [address]Performed By: #### PTTAC #### [facility] CLIA [id number] [address] [place] [address] [place] AMERICALactate [Moles/Vol]1.4 mmol/LNormal 0.5-2.2[facility] HospitalComment on above:Order Comment: Specimen Type: BLOOD SPECIMEN [facility] Facility[facility] Address: [address] [place], [place] [address]Performed By: #### PTTAC #### [facility] CLIA [id number] [address] [place] [address] [place] AMERICALITERS6 Liters/minNormalSterling HospitalComment on above:Order Comment: Specimen Type: BLOOD SPECIMEN [facility] Facility[facility] Address: [address] [place], [place] [address]Performed By: #### PTTAC #### [facility] IA [id number] [address] [place] [address] [place] AMERICAMethemoglobin (Bld) [Mass fraction] 0.7 %Normal0.0-1.5[facility] HospitalComment on above:Order Comment: Specimen Type: BLOOD SPECIMEN [facility] Facility[facility] Address: [address] [place], [place] [address]Performed By: #### PTTAC #### [facility] CLIA [id number] [address] [place] [address] [place] AMERICAO2 THERAPYNC = Nasal CannulaNormal [facility] HospitalComment on above:Order Comment: Specimen Type: BLOOD SPECIMEN [facility] Facility[facility] Address: [address] [place], [place] [address]Performed By: #### PTTAC #### [facility] IA [id number] [address] [place] [address] [place] AMERICAOxygen (Bld) [Partial pressure]85 mm LwDqriry73-06Tiicgwoy HospitalComment on above:Order Comment: Specimen Type: BLOOD SPECIMEN [facility] Facility[facility] Address: [address] [place], [place] [address]Performed By: #### PTTAC #### [facility] IA [id number] [address] [place] [address] [place] AMERICAOxyhemoglobin (BldA) [Mass fraction] 94 %Biv24-27Cynbeund HospitalComment on above:Order Comment: Specimen Type: BLOOD SPECIMEN [facility] Facility[facility] Address: [address] [place], [place] [address]Performed By: #### PTTAC #### [facility] IA [id number] [address] [place] [address] [place] AMERICApH (Bld)7.30 [pH]Low7.35-7.45 [facility] HospitalComment on above:Order Comment: Specimen Type: BLOOD SPECIMEN [facility] Facility[facility] Address: [address] [place], [place] [address]Performed By: #### PTTAC #### [facility] CLIA [id number] [address] [place] [address] [place] AMERICAPotassium [Moles/Vol]4.0 mmol/L Normal3.5-5.0Melrosewakefield HospitalComment on above:Order Comment: Specimen Type: BLOOD SPECIMEN [facility] Facility[facility] Address: [address] [place], [place] [address]Performed By: #### PTTAC #### [facility] CLIA [id number] [address] [place] [address] [place] AMERICASodium [Moles/Vol]141 mmol/LNormal 136-144Melrosewakefield HospitalComment on above:Order Comment: Specimen Type: BLOOD SPECIMEN [facility] Facility[facility] Address: [address] [place], [place] [address]Performed By: #### PTTAC #### [facility] CLIA [id number] [address] [place] [address] [place] AMERICABacteria Ur Culton 10-24-2023 Bacteria identified Cx Nom (U)ORGANISM ID: 1 >=100,000 CFU/ml Mixed microbiota No further workup. Mixed microbiota can be due to???urine???contamination with skin bacteria at time of collection or presence of a long-term urinary catheter. If a new culture is needed, please consider re-education of the patient on proper midstream collection technique or straight catheterization for???urine???collection.NormalSterling HospitalComment on above:Performed By: #### 630-4 ####[facility] LABCLIA [id number] [place] [address] [place] AMERICABasic metabolic 2000 panelon 64-15-9365Hnhsi gap [Moles/Vol]11 mmol/LNormal9-18FMassachusetts Mental Health Center Comment on above:Order Comment: Specimen Type: BLOOD SPECIMEN [facility] Facility[facility] Address: [address] [place], [place] [address]Performed By: #### 61591-6, HSTNT #### [facility] CLIA [id number] [address] [place] [address] [place] AMERICACalcium [Mass/Vol]8.7 mg/dLNormal 8.5-10.2Fha[facility] HospitalComment on above:Order Comment: Specimen Type: BLOOD SPECIMEN [facility] Address: [address] [place], [place] [address]Performed By: #### 70679-5, HSTNT #### [facility] CLIA [id number] [place] [address] [place] AMERICAChloride [Moles/Vol]101 mmol/LNormal 97-105Fafederal [facility] center, devens HospitalComment on above:Order Comment: Specimen Type: BLOOD SPECIMEN [facility] Facility[facility] Address: [address] [place], [place] [address]Performed By: #### 70239-8, HSTNT #### [facility] CLIA [id number] [address] [place] [address] [place] AMERICACO2 [Moles/Vol]30 mmol/ZBkpfsy84-53 [facility]wakefield HospitalComment on above:Order Comment: Specimen Type: BLOOD SPECIMEN [facility] Facility[facility] Address: [address] [place], [place] [address]Performed By: #### 39592-1, HSTNT #### [facility] CLIA [id number] [address] [place] [address] [place] AMERICACreatinine [Mass/Vol]1.82 mg/dLHigh 0.73-1.22FaBoston DispensaryComment on above:Order Comment: Specimen Type: BLOOD SPECIMEN [facility] Facility[facility] Address: [address] [place], [place] [address]Performed By: #### 85043-7, HSTNT #### [facility] CLIA [id number] [address] [place] [address] [place]ICACreatinine and Glomerular filtration rate.predicted panel (S/P/Bld)41 mL/min/1.73m???Low>=60FaBoston DispensaryComment on above:Order Comment: Specimen Type: BLOOD SPECIMEN [facility] Address: [address] [place], [place] [address]Result Comment: Estimated Glomerular Filtration Rate (eGFR) is calculated using the 2020 CKD-EPI cre atinine equation. This equation utilizes serum creatinine, sex, and age as parameters. The creatinine assay has traceable calibration to isotope dilution- mass spectrometry. Refer to KDIGO guidelines for clinical interpretation. In patients with unstable renal function, e.g. those with acute kidney injury, the eGFR may not accurately reflect actual GFR.Performed By: #### 46770-3, HSTNT #### [facility] CLIA [id number] [address] [place] [address] [place] AMERICAGlucose [Mass/Vol]229 mg/tJIbql70-51 [facility] HospitalComment on above:Order Comment: Specimen Type: BLOOD SPECIMEN [facility] Facility: [facility] Address: [address] [place], [place] [address]Result Comment: The [place] [employer] (ADA) provides guidance for cutoff [...] Standards of Medical Care in Diabetes 2016, [place] [employer]. Diabetes Care. 2016.39(Suppl 1).Performed By: #### 56104-4, HSTNT #### [facility] CLIA [id number] [place] [address] [place] AMERICAPotassium [Moles/Vol]4.2 mmol/L Normal3.7-5.1FMassachusetts Mental Health CenterComment on above:Order Comment: Specimen Type: BLOOD SPECIMEN [facility] Address: [address] [place], [place] [address]Performed By: #### 45787-3, HSTNT #### [facility] CLIA [id number] [address] [place] [address] [place] AMERICASodium [Moles/Vol]142 mmol/LNormal 136-144FaBoston DispensaryComment on above:Order Comment: Specimen Type: BLOOD SPECIMEN [facility] Address: [address] [place], [place] [address]Performed By: #### 13531-7, HSTNT #### [facility] CLIA [id number] [address] [place] [address] [place] AMERICAUrea nitrogen [Mass/Vol]58 mg/dLHigh 9-24Fafederal medical center, devens HospitalComment on above:Order Comment: Specimen Type: BLOOD SPECIMEN [facility] Facility: [facility] Address: [address] [place], [place] [address]Performed By: #### 16139-1, HSTNT #### [facility] CLIA [id number] [place] [address] [place] AMERICACBC panel Auto (Bld)on 10-24-2023 Erythrocyte distribution width (RBC) [Ratio]16.4 %High11.5-15.0[facility] Comment on above:Order Comment: Specimen Type: BLOOD SPECIMEN [facility] Facility: [facility] Address: [address] [place], [place] [address]Performed By: #### 36684-8, 45604-7 #### [facility] CLIA [id number] [place] [address] [place] AMERICAHematocrit (Bld) [Volume fraction] 41.0 %Jarsga58.0-51.0Fafederal medical center, devens HospitalComment on above:Order Comment: Specimen Type: BLOOD SPECIMEN [facility] Facility: [facility] Address: [address] [place], [place] [address]Performed By: #### 88977-3, 29231-7 #### [facility] CLIA [id number] [address] [place] [address] [place] AMERICAHemoglobin (Bld) [Mass/Vol]12.4 g/dL Low13.0-17.0Fafederal medical center, devens HospitalComment on above:Order Comment: Specimen Type: BLOOD SPECIMEN [facility] Facility: [facility] Address: [address] [place], [place] [address]Performed By: #### 36566-7, 50646-6 #### [facility] CLIA [id number] [address] [place] [address] (RBC) [Entitic mass]26.9 pg Hpnxqt77.0-34.0Fafederal medical center, devens HospitalComment on above:Order Comment: Specimen Type: BLOOD SPECIMEN [facility] Facility: [facility] Address: [address] [place], [place] [address]Performed By: #### 67841-5, 08287-7 #### [facility] CLIA [id number] [address] [place] [address] (RBC) [Mass/Vol]30.2 g/dLLow 30.5-36.0Fafederal [facility] center, devens HospitalComment on above:Order Comment: Specimen Type: BLOOD SPECIMEN [facility] Facility: [facility] Address: [address] [place], [place] [address]Performed By: #### 66900-6, 13390-3 #### [facility] CLIA [id number] [address] [place] [address] (RBC) [Entitic vol]88.9 fLNormal 80.0-100.0Fafederal medical center, devens HospitalComment on above:Order Comment: Specimen Type: BLOOD SPECIMEN [facility] Facility: [facility] Address: [address] [place], [place] [address]Performed By: #### 77972-0, 97762-5 #### [facility] CLIA [id number] [address] [place] [address] RBC (Bld) [#/Vol]10*3/uL Normal<0.01Fafederal [facility] center, devens HospitalComment on above:Order Comment: Specimen Type: BLOOD SPECIMEN [facility] Facility: [facility] Address: [address] [place], [place] [address]Performed By: #### 83215-0, 95926-5 #### [facility] CLIA [id number] [address] [place], [place] [address]Platelet mean volume (Bld) [Entitic vol]8.8 fLLow9.0-12.7Fhaverhill pavilion [facility] hospital HospitalComment on above:Order Comment: Specimen Type: BLOOD SPECIMEN [facility] Facility: [facility] Address: [address] [place], [place] [address]Performed By: #### 77555-3, 94892-0 #### [facility] CLIA [id number] [address]Platemarlborough hospital (Bld) [#/Vol]240 10*3/uL Fuvucz357-110Jjwljlnb HospitalComment on above:Order Comment: Specimen Type: BLOOD SPECIMEN [facility] Facility: [facility] Address: [address] [place], [place] [address]Performed By: #### 32326-8, 59345-4 #### [facility] CLIA [id number] [address] [place] [address] (d) [#/Vol]4.61 10*6/uLNormal 4.20-6.00Fafederal [facility] center, devens HospitalComment on above:Order Comment: Specimen Type: BLOOD SPECIMEN [facility] Facility: [facility] Address: [address] [place], [place] [address]Performed By: #### 67021-5, 86168-4 #### [facility] CLIA [id number] [address] [place] [address] (d) [#/Vol]7.15 10*3/uLNormal 3.70-11.00Sterling HospitalComment on above:Order Comment: Specimen Type: BLOOD SPECIMEN [facility] Facility: [facility] Address: [address] [place], [place] [address]Performed By: #### 91740-3, 50667-1 #### [facility] CLIA [id number] [address] [place] [id number] [facility] MEDICAL CENTERCONSULTon 95-79-2101MISEUBMKSH ID: [id number] Author: NAUN COUCH MD Service: Nephrology Author [...] amputation admitted from home who presented to [facility] with complaints of worsening shortness of breath, bilateral lower extremity edema and ~ 10lb weight gain in the last few weeks. Patient reports multiple hospital admissions in 2023 at [facility] in [place] for fluid overload. He states he usually [...] daily before meals., Disp: , Rfl: INSULIN GLARGINE,HUM.REC.ANLOG (LANTUS SOLOSTAR SUBCUTANEOUS), Inject 40 Units subcutaneously [...] w MEALS AND HS (more content not included)...[facility] ID: [id number] Author: FLOR BE RN Service: ? Author [...] foot. Patient goes to wound clinic in [place] for care last dressing used was Temi. [...] 10/24/2023 9:38 AM Wound Image Site Assessment Red;[place] Nora-Wound Assessment Calloused Shape oval Wound Length (cm) 2 cm Wound Width (cm) 2.8 cm Wound Surface Area (cm2) 5.6 cm2 Wound Depth (cm) 0.4 cm Wound Volume (cm3) 2.24 cm3 Drainage Description Serous Drainage Amount Scant Odor None Nora-Wound Treatment Skin Prep Treatments Cleansed Dressing Silver Alginate (AG);Foam- Adhesive Dressing Changed Changed Dressing Status Intact No associated orders. Impression/Recommendations Left foot plantar, present on admission diabetic [...] Review under the Scanned Docs tab in [employer]. The purpose of the photo(s) is to optimize the patient's medical care and allow (more content not included)...[facility] ID: [id number] Author: NERY MOTTA MD Service: Cardiovascular Medicine Author Type: Physician Type: Consults Filed: 10/24/2023 17:43 Note Text: [facility] CARDI[facility]ASCULAR MEDICINE CONSULT NOTE (Template ID [id number]) Nicole Lora [id number] PRIMARY SERVICE: Internal Medicine CONSULTING SERVICE: Cardiovascular Medicine: General Consults DATE OF ADMISSION: 10/23/2023 DATE OF CONSULT: 10/24/2023 REASON FOR CONSULT Elevated troponins HISTORY OF PRESENT ILLNESS Nicole Lora is a 63 year old male PMH of CKD 3, chronic respiratory failure, morbid obesity, insulin dependent diabetes, TC, Asthma, left forefoot amputation, lives in [place], who was admitted for volume overload. He [...] U-100 INSULIN 100 unit/mL (3 mL) peninject 1520 PLUS ISS #2 (EXPECT DAILY DOSE OF 80 UNITS)Disp: Rfl: rOPINIRole (REQUIP) 1 mg tabletTake 1 mg by mouth daily at bedtime.Disp: Rfl: tamsulosin (FLOMAX) 0.4 mgTake 1 capsule by mouth every afternoon.Disp: Rfl: insulin regular human (HUMULIN R) 100 unit/mL injectionInject 15 Units subcutaneously three times daily before meals.Disp: Rfl: INSULIN GLARGINE,HUM.REC.ANLOG (LANTUS SOLOSTAR SUBCUTANEOUS)Inject 40 Units subcutaneously daily [...] And metFORMIN 500 m (more content not included)...[facility] 34-39-1327ADYIDQU PRONO ID: [id number] Author: JOSE HARMON RPh Service: Pharmacy Author [...] have any questions, please contact pharmacy at [phone]. Estimated Creatinine Clearance: 60.4 mL/min (A) (based [...] 180.3 cm (5' 11 ) Jose Harmon [facility] October 24, 2023 3:09 AMNormalMelrosewakefield HospitalChloride ?Tm Ur-sCncon 10-24-2023 Chloride Unsp time (U) [Moles/Vol]61 mmol/YKkwhpg33-083Lcfqghho HospitalComment on above:Order Comment: Specimen Type: BLOOD SPECIMEN [facility] Facility: [facility] Address: [address] [place], [place] [address]Performed By: #### 15950-3, 13611-1 #### [facility] CLIA [id number] [address] [place] [address] [place] AMERICAD dimer FEU PPP-mCncon 10-24-2023 Fibrin D-dimer FEU (PPP) [Mass/Vol]2400 ng/mL FEUHigh<500[facility] Comment on above:Order Comment: Specimen Type: BLOOD SPECIMENOrdering Facility: [facility] Address:[address] [place] [address] Performed By: #### 18710-6, 96446-6, PTTAC ####[facility] [id number] [place] [id number] [place] OF AMERICAECG 12 leadon 68-29-8612Avfbwcbyayp Rate : 77 BPM Atrial Rate : 78 BPM P-R Interval : 180 ms QRS Duration : 97 ms Q-T Interval : 389 ms QTC Calculation(Bazett) : 441 ms Calculated P [place] : 53 degrees Calculated R [place] : -76 degrees Calculated T [place] : 65 degrees Sinus rhythm Left anterior fascicular block Abnormal ECG no stemi Confirmed by DARNELL YIN MD ([id number]), JACQUELINE Adams ([id number]) on 10/24/2023 10:36:37 AM NAME : NICOLE LORA PID : [id number] : 1960 Gender : Male Race : ORD : [id number] Procedure Date : Oct 23 2023 20:16:04 Edit Date : Oct 24 2023 10:36:39 Diagnosis: Sinus rhythm Left anterior fascicular block Abnormal ECG no stemi Confirmed by DARNELL YIN MD ([id number]), JACQUELINE Adams ([id number]) on 10/24/2023 10:36:37 AM Test Reason : Other - Specify Location : 402 : FVED fved55 Overread By : DARNELL YIN MD Edited By : JACQUELINE ROSALES Referred By : , Acquired by : [id number],CCFRadiology, Radiologist, MD - 10/24/2023 Ventricular Rate : 77 BPM Atrial Rate : 78 BPM P-R Interval : 180 ms QRS Duration : 97 ms Q-T Interval : 389 ms QTC Calculation(Bazett) : 441 ms Calculated P [place] : 53 degrees Calculated R [place] : -76 degrees Calculated T [place] : 65 degrees Sinus rhythm Left anterior fascicular block Abnormal ECG no stemi Confirmed by DARNELL YIN MD ([id number]), JACQUELINE Adams ([id number]) on 10/24/2023 10:36:37 AM NAME : NICOLE LORA PID : [id number] : 1960 Gender : Male Race : ORD : [id number] Procedure Date : Oct 23 2023 20:16:04 Edit Date : Oct 24 2023 10:36:39 Diagnosis: Sinus rhythm Left anterior fascicular block Abnormal ECG no stemi Confirmed by DARNELL YIN MD ([id number]), JACQUELINE Adams ([id number]) on 10/24/2023 10:36:37 AM Test Reason : Other - Specify Location : 402 : FVED fved55 Overread By : HUMPHREY LYMAN,[facility] Edited By : JACQUELINE ROSALES Referred By : , Acquired by : [id number], [facility] 12 leadOrdered By: Radiologist Radiology on 75-04-5097PPYA Responsa Work Phone: Fibrin D-dimer FEU (PPP) [Mass/Vol]on 10-24-2023 DIMER AGE-RELATED MVMFZI523 ng/mL FEUNormalSterling HospitalComment on above: Order Comment: Specimen Type: BLOOD SPECIMENOrdering Facility: [facility] Address:[address] [place], [place] [address]Performed By: #### 36002- 7, 64028-3, PTTAC ####[facility]IA [id number] [place] [address] [place] AMERICAGas and Carbon monoxide panel (BldV) on 43-28-6666Axif excess Calc (BldV) [Moles/Vol]4 mmol/LHigh[address] Comment on above:Order Comment: Specimen Type: BLOOD SPECIMEN [facility] Facility: [facility] Address: [address] [place], [place] [address]Performed By: #### 25890-0, 15442-5 #### [facility] CLIA [id number] [address] [place] [address] [place] AMERICABody bljpkwiljqx33 [degF]Normal Sterling HospitalComment on above:Order Comment: Specimen Type: BLOOD SPECIMEN [facility] Facility[facility] Address: [address] [place], [place] [address]Performed By: #### 56856-6, 92979-9 #### [facility] CLIA [id number] [address] [place] [address] [place] AMERICACalcium.ionized (Bld) [Mass/Vol]1.14 mmol/LNormal1.08-1.30FaBoston DispensaryComment on above:Order Comment: Specimen Type: BLOOD SPECIMEN [facility] Facility[facility] Address: [address] [place], [place] [address]Performed By: #### 86173-6, 20762-0 #### [facility] CLIA [id number] [address] [place] [address] [place] AMERICACalcium.ionized adjusted to pH 7.4 (BldA) [Moles/Vol]1.08 mmol/LNormal1.08-1.30Melrosewakefield HospitalComment on above: Order Comment: Specimen Type: BLOOD SPECIMEN [facility] Facility[facility] Address: [address] [place], [place] [address]Performed By: #### 00034-4, 73133-4 #### [facility] CLIA [id number] [address] [place] [address] [place] AMERICACarboxyhemoglobin (BldV) [Mass fraction]2.3 %High0.0-2.0FaBoston DispensaryComment on above:Order Comment: Specimen Type: BLOOD SPECIMEN [facility]: [facility] Address: [address] [place], [place] [address]Result Comment: Carboxyhemoglobin Reference Range for Smokers: 2.0-8.0%Performed By: #### 31267-3, 45781-3 #### [facility] CLIA [id number] [address] [place] [address] [place] AMERICAChloride [Moles/Vol]103 mmol/LNormal 97-105FaBoston DispensaryComment on above:Order Comment: Specimen Type: BLOOD SPECIMEN [facility] Facility[facility] Address: [address] [place], [place] [address]Performed By: #### 72160-0, 15292-6 #### [facility] CLIA [id number] [address] [place] [address] [place] AMERICACO2 (BldV) [Partial pressure]66 mm[Hg]Gznm74-16Vscvymoh HospitalComment on above:Order Comment: Specimen Type: BLOOD SPECIMEN [facility] Facility[facility] Address: [address] [place], [place] [address]Performed By: #### 98074-1, 81022-8 #### [facility] CLIA [id number] [address] [place] [address] [place] AMERICACO2 adjusted to patient's actual temperature (BldV) [Partial pressure]NormalFafederal medical center, devens HospitalComment on above: Order Comment: Specimen Type: BLOOD SPECIMEN [facility] Facility[facility] Address: [address] [place], [place] [address]Performed By: #### 48676-9, 75125-3 #### [facility] CLIA [id number] [address] [place] [address] [place] AMERICAGlucose [Mass/Vol]222 mg/dLHigh 60-105Fafederal medical center, devens HospitalComment on above:Order Comment: Specimen Type: BLOOD SPECIMEN [facility] Facility[facility] Address: [address] [place], [place] [address]Performed By: #### 67982-3, 96292-7 #### [facility] CLIA [id number] [address] [place] [address] [place] AMERICAHCO3 (Bld) [Moles/Vol]31 mmol/LHigh 24-28Fafederal medical center, devens HospitalComment on above:Order Comment: Specimen Type: BLOOD SPECIMEN [facility] Address: [address] [place], [place] [address]Performed By: #### 55614-7, 92673-2 #### [facility] CLIA [id number] [address] [place] [address] [place] AMERICAHematocrit (Bld) [Volume fraction] 38.5 %Low39.0-51.0Fafederal medical center, devens HospitalComment on above:Order Comment: Specimen Type: BLOOD SPECIMEN [facility] Address: [address] [place], [place] [address]Performed By: #### 35597-9, 82636-4 #### [facility] CLIA [id number] [address] [place] [address] [place] AMERICAHemoglobin (Bld) [Mass/Vol]12.5 g/dL Low13.0-17.0Sterling HospitalComment on above:Order Comment: Specimen Type: BLOOD SPECIMEN [facility] Facility[facility] Address: [address] [place], [place] [address]Performed By: #### 93089-0, 30305-7 #### [facility] CLIA [id number] [address] [place] [address] [place] AMERICALactate [Moles/Vol]0.7 mmol/LNormal 0.5-2.2Fhaverhill pavilion behavioral health hospital HospitalComment on above:Order Comment: Specimen Type: BLOOD SPECIMEN [facility] Facility[facility] Address: [address] [place], [place] [address]Performed By: #### 38622-3, 05711-9 #### [facility] CLIA [id number] [address] [place] [address] [place] AMERICAMethemoglobin (Bld) [Mass fraction] 0.6 %Normal0.0-1.5Fhaverhill pavilion behavioral health hospital HospitalComment on above:Order Comment: Specimen Type: BLOOD SPECIMEN [facility] Address: [address] [place], [place] [address]Performed By: #### 17453-8, 10768-3 #### [facility] CLIA [id number] [address] [place] [address] [place] AMERICAO2 THERAPYRA=Room AirNormalSterling HospitalComment on above:Order Comment: Specimen Type: BLOOD SPECIMEN [facility] Address: [address] [place], [place] [address]Performed By: #### 06015-0, 17302-9 #### [facility] CLIA [id number] [address] [place] [address] [place] AMERICAOxygen (BldV) [Partial pressure]176 mm[Hg]Sjtg98-24Airxshyy HospitalComment on above:Order Comment: Specimen Type: BLOOD SPECIMEN [facility] Facility[facility] Address: [address] [place], [place] [address]Performed By: #### 20334-3, 48215-7 #### [facility] CLIA [id number] [address] [place] [address] [place] AMERICAOxygen adjusted to patient's actual temperature (BldV) [Partial pressure]NormalSterling HospitalComment on above: Order Comment: Specimen Type: BLOOD SPECIMEN [facility] Address: [address] [place], [place] [address]Performed By: #### 15081-7, 44280-1 #### [facility] CLIA [id number] [address] [place] [address] [place] AMERICAOxygen saturation in Venous blood99 %Ksbd18-07Swrcmnyp HospitalComment on above:Order Comment: Specimen Type: BLOOD SPECIMEN [facility] Address: [address] [place], [place] [address]Performed By: #### 87773-9, 66463-7 #### [facility] CLIA [id number] [address] [place] [address] [place] AMERICAOxyhemoglobin (BldV) [Mass fraction] 96 %Uuhu83-53Cfxteyjw HospitalComment on above:Order Comment: Specimen Type: BLOOD SPECIMEN [facility] Address: [address] [place], [place] [address]Performed By: #### 72820-5, 92646-3 #### [facility] CLIA [id number] [address] [place] [address] [place] AMERICApH (BldV)7.30 [pH]Low7.32-7.42 Sterling HospitalComment on above:Order Comment: Specimen Type: BLOOD SPECIMEN [facility] Address: [address] [place], [place] [address]Performed By: #### 89304-4, 23620-2 #### [facility] CLIA [id number] [address] [place] [address] [place] AMERICApH adjusted to patient's actual temperature (BldV)[facility] HospitalComment on above:Order Comment: Specimen Type: BLOOD SPECIMEN [facility] Address: [address] [place], [place] [address]Performed By: #### 34528-8, 23523-5 #### [facility] CLIA [id number] [address] [place] [address] [place] AMERICAPotassium [Moles/Vol]3.9 mmol/L Normal3.5-5.0Sterling HospitalComment on above:Order Comment: Specimen Type: BLOOD SPECIMEN [facility] Facility[facility] Address: [address] [place], [place] [address]Performed By: #### 06247-2, 34022-3 #### [facility] CLIA [id number] [address] [place] [address] [place] AMERICASodium [Moles/Vol]140 mmol/LNormal 136-144Fafederal medical center, devens HospitalComment on above:Order Comment: Specimen Type: BLOOD SPECIMEN [facility] Address: [address] [place], [place] [address]Performed By: #### 66220-6, 38473-4 #### [facility] CLIA [id number] [address] [place] [address] [place] AMERICAHIGH SENSITIVITY TROPONIN Ton 71-58-4015Voolywcp T.cardiac High sensitivity method [Mass/Vol]153 ng/LHigh<12 [facility]field HospitalComment on above:Order Comment: Specimen Type: BLOOD SPECIMENOrdering Facility: [facility] Address:[address] [place] [address] Comment: When assessing risk for acute coronary syndromes: In patients undergoing blood drawgreater than or equal to 2 hours from symptom onset, with history of very low to moderate risk and non-ischemic ECG, an initial hs-Troponin T less than 12 ng/L AND a 1 hour delta hs-Troponin T less than 3 ng/L should be considered very low risk for 30 day MACE.Performed By: #### HSTNT ####[facility]ORATORYCLIA [id number] [place] [address] [place] AMERICATroponin T.cardiac High sensitivity method [Mass/Vol]152 ng/LHigh<12Fafederal medical center, devens HospitalComment on above: Order Comment: Specimen Type: BLOOD SPECIMENOrdering Facility: [facility] Address:[address] [place], [place] [address]Result Comment: When assessing risk for acute coronary syndromes: In patients undergoing blood draw greater than or equal to 2 hours from symptom onset, with history of very low to moderate risk and non-ischemic ECG, an initial hs-Troponin T less than 12 ng/L AND a 1 hour delta hs-Troponin T less than 3 ng/L should be considered very low risk for 30 day MACE.Performed By: #### 03058-3, HSTNT ####[facility] LABORATORYCLIA [id number] [place] [id number] [facility] CENTERHISTORY PHYSICALon 67-87-2946GVPISSH PHYSICALHNO ID: [id number] Author: TAY STEWART MD Service: General Internal [...] daily before meals., Disp: , Rfl: INSULIN GLARGINE,HUM.REC.ANLOG (LANTUS SOLOSTAR SUBCUTANEOUS), Inject 40 Units subcutaneously [...] Assessment AND Plan: Insul (more content not included)...NormalFair[facility] HISTORY PHYSICALHNO ID: [id number] Author: JUDI LOERA PA Service: General Internal Medicine Author Type: Physician Liner Worker Type: H&P Filed: 10/24/2023 02:27 Note [...] forefoot amputation admitted from home, lives in [place] for fluid overload. The patient states he's [...] daily before meals., Disp: , Rfl: INSULIN GLARGINE,HUM.REC.ANLOG (LANTUS SOLOSTAR SUBCUTANEOUS), Inject 40 Units subcutaneously [...] abdominal pain, constipation, d (more content not included)...[facility] HospitalHbA1c (Bld)on 08-43-1292Cueqzkz glucose Estimated from glycated hemoglobin (Bld) [Mass/Vol]240 mg/dLNormalMelrosewakefield HospitalComment on above:Order Comment: Specimen Type: BLOOD SPECIMENOrdering Facility: [facility] Address:[address] [place], [place] [address]Result Comment: eAG: (Estimated average glucose) is a calculated value from HgbA1c and is employee representative of the average blood glucose level in the last 2-3 month period.Performed By: #### 79538-8 ####[facility] LABIA [id number] [place] [address] [place] XOJQTEFKcI6r (Bld) [Mass fraction]10.0 %High4.3-5.6FMassachusetts Mental Health CenterComment on above:Order Comment: Specimen Type: BLOOD SPECIMENOrdering Facility: [facility] Address:[address] [place], [place] [address]Result Comment: [place] [employer] guidelines indicate that patients with HgbA1c in the range 5.7-6.4% are at increased risk for development of diabetes, and intervention by lifestyle modification may be beneficial. HgbA1c greater or equal to 6.5% is considered diagnostic of diabetes.Performed By: #### 37035-1 ####[facility] LABIA [id number] [place] [id number] [place] LUNG VENT / PERF VQon 92-66-9680PD LUNG VENT / PERF VQ* * *Final Report* * * DATE OF [...] - IMPRESSION: LOW PROBABILITY OF PULMONARY EMBOLISM. Publications Inspector: PSCB Transcribe Date/Time: Oct 24 2023 2:27P Dictated by : CAT LUO MD This examination was interpreted and the report reviewed and electronically signed by: CAT LUO MD on Oct 24 2023 2:29PM EST [id number] General Hospital 25-04-9383OPUXLMJ PROGHNO ID: [id number] Author: SLADE MCMILLAN, RAFAEL Service: ? Author Type: Registered Nurse Type: Nursing Progress Note Filed: 10/24/2023 23:50 Note Text: 2118: page house to delia olmstead pt pCO2 came back 72. 2143: raymon huerta miller at bedside states she will talk to ICU team and go from there 2348: pt transferred to MICU, report given to RN.[facility] ID: [id number] Author: GUADALUPE ANGEL RN Service: Nursing Author Type: Registered Nurse Type: Nursing Progress Note Filed: 10/24/2023 18:32 Note Text: Other: Late entry for 829, decreased oxygen to 5L NC, baseline is 4L NC at home. 1230: Heparin gtt discontinued, ( no cardiology intervention to be done at this time) diet order placed 1700: urgent pCO2 of 70. Updated [employer] via secure chat. 1715 oxygen turned to 4.5 L per resp recommendation supply requirements officer paged 1745: House office aware and into talk with patient. Will reach out to ICU for recommendations, sating 88-90 on 4.5 L 1830: New orders to repeat ABG's again [facility] 2100[facility] ID: [id number] Author: ANIA VAZQUEZ RN Service: ? Author Type: Registered Nurse Type: Nursing Progress Note Filed: 10/24/2023 03:26 Note Text: 0223- secure chat with HARPAL Garcia, pt has STAT order for echo, ok to be done tommorow, does not need to be [facility] [id number] Author: SLADE MCMILLAN, RAFAEL Service: ? Author Type: Registered Nurse Type: Nursing Progress Note Filed: 10/24/2023 04:15 Note Text: 0304: [facility] pt MARINA came back 152. 0405: [facility] pt pulse ox keep dropping to 85-87 and he is on 6L of O2. he would jump up to 95 then back down and sustaining at 88%. He denies SOB. 0412: called back form , new orders put in.[facility] ID: [id number] Author: ANIA VAZQUEZ, RAFAEL Service: ? Author Type: Registered Nurse Type: Nursing Progress Note Filed: 10/24/2023 01:27 Note Text: Transfer Note: PATIENT NAME: Nicole Lora Patient Location: [place] [address] [address] Room: [place] [address] Patient transferred into room/unit PK322 from the ED in stable condition. Actions taken: No futher actions taken at this time. Will continue to monitor and check with patient.[facility] HospitalOsmolality SerPlon 10-24-2023 Osmolality [Osmolality]316 mosm/ezRgfr294-185Kpaeftow HospitalComment on above: Order Comment: Specimen Type: BLOOD SPECIMEN [facility] Facility: [facility] Address: [address] [place], [place] [address]Performed By: #### PTTAC #### [facility] CLIA [id number] [address] [place] [address] [place] OF AMERICAOsmolality Uron 72-64-7760Fmnocnslop (U) [Osmolality]343 mosm/sjEwbzmc14-2877Esqvsryp HospitalComment on above:Order Comment: Specimen Type: BLOOD SPECIMEN [facility] Facility: [facility] Address: [address] [place], [place] [address]Performed By: #### 24210-7, 98547-3 #### [facility] CLIA [id number] [address] [place] [address] [place] AMERICAPT panel Coag (PPP)on 84-56-0265QRZ Coag (PPP) [Relative time]1.0 {INR}Normal0.9-1.3Fhaverhill pavilion [facility] HospitalComment on above:Order Comment: Specimen Type: BLOOD SPECIMENOrdering Facility: [facility] Address:[address] [place], [place] [id number] Comment: Vitamin K Antagonist (VKA) Therapeutic Range: INR 2 to 3 (Target INR of 2.5) Note: For patients treated with VKA drugs, such as warfarin, the [place] [employer] 2012 Guideline recommends [...] Chest 2012, 141:7S-47S Sheri RA, et al. [facility] 2017, 70: 252-289Performed By: #### 12772-1, 84512-9, PTTAC ####[facility] LABORATORYCLIA [id number] [place] [id number] [place] AMERICAPT Coag (PPP) [Time]10.9 sNormal9.7-13.0Sterling HospitalComment on above:Order Comment: Specimen Type: BLOOD SPECIMENOrdering Facility: [facility] Address:[address] [place] [id number] By: #### 70273-0, 57221-2, PTTAC ####[facility]ATORYCLIA [id number] [place] [address] [place] OF AMERICAPTT, ANTICOAGULANT THERAPYon 67-23-3183qYVF Coag (PPP) [Time]31.1 wFdevfg64.0-32.4 [facility] HospitalComment on above:Order Comment: Specimen Type: BLOOD SPECIMEN [facility] Facility: [facility] Address: [address] [place], [place] [address]Performed By: #### PTTAC #### [facility] CLIA [id number] [address] [place] [address] [place] OF [facility] HOSPITALaPTT Coag (PPP) [Time]28.0 sNormal 23.0-32.4Fhaverhill pavilion [facility] hospital HospitalComment on above:Order Comment: Specimen Type: BLOOD SPECIMENOrdering Facility: [facility] Address:[address] [place], [place] [address]Performed By: #### 72774-1, 30718-3, PTTAC ####[facility]ORY[facility] [id number] [place] [id number] [place] AMERICAPotassium ?Tm Ur-sCncon 84-48-8473Wmfmyhlta Unsp time (U) [Moles/Vol] 25.9 mmol/TEfzpko86.0-160.0Fafederal medical center, devens HospitalComment on above:Order Comment: Specimen Type: BLOOD SPECIMEN [facility] Facility: [facility] Address: [address] [place], [place] [address]Performed By: #### PTTAC #### [facility] [place] [id number] [address] [place] [address] STATES OF AMERICAProt/Creat Uron 10-24-2023 Protein/Creatinine (U) [Mass ratio]1.09 mg/mgHigh<0.15Fafederal medical center, devens HospitalComment on above:Order Comment: Specimen Type: BLOOD SPECIMEN [facility] Facility: [facility] Address: [address] [place], [place] [address]Result Comment: Adult Proteinuria Categories: <0.15 mg/mg is considered normal to mildly increased 0.15 - 0.50 mg/mg is considered moderately increased >0.50 mg/mg is considered severely increased KDIGO. (2013). KDIGO 2012 Clinical Practice Guideline for the Evaluation and Management of Chronic Kidney Disease. Official Journal of the International Society of Nephrology, 3(1), 1-150.Performed By: #### PTTAC #### [facility] CLIA [id number] STATES OF AMERICAProtein/Creatinine (U) [Mass ratio] on 62-48-2740Vxghxxalmq (U) [Mass/Vol]43.3 mg/mCMlohut75.0-300.0Sterling HospitalComment on above:Order Comment: Specimen Type: BLOOD SPECIMEN [facility] Facility: [facility] Address: [address] [place], [place] [address]Performed By: #### PTTAC #### [facility] CLIA [id number] [address] [place] [address] STATES OF AMERICAProtein (U) [Mass/Vol]47 mg/dLHigh 0-20Fafederal [facility] center, [facility] HospitalComment on above:Order Comment: Specimen Type: BLOOD SPECIMEN [facility] Facility: [facility] Address: [address] [place], [place] [address]Performed By: #### PTTAC #### [facility] CLIA [id number] [address] [place] [address] [place] AMERICASodium ?Tm Ur-sCncon 10-24-2023 Sodium Unsp time (U) [Moles/Vol]61 mmol/AEhjpaq71-587Qespmjmd HospitalComment on above:Order Comment: Specimen Type: BLOOD SPECIMEN [facility] Facility: [facility] Address: [address] [place], [place] [address]Performed By: #### PTTAC #### [facility] CLIA [id number] [address] [place] [address] [place] AMERICATHERAPY NTon 47-39-1582WFBLRLO NTHNO ID: [id number] Author: CATHIE DOMÍNGUEZ PT Service: Physical Therapy Author Type: Physical Therapist Type: Therapy (PT/OT/Speech/Resp) Filed: 10/24/2023 12:05 Note Text: Physical Therapy Evaluation Summary SERVICE DATE: 10/24/2023 SERVICE TIME: 908 to 931 ROOM: [place] [address] PT 6 Clicks Score: 20 DISCHARGE RECOMMENDATIONS Home PT Physical Assist at Home for: Transportation, Shopping, Laundry, Cleaning ASSESSMENT Response to Therapy Interventions: Good Participation in Activities, Low Activity Tolerance PRECAUTIONS Bed/Chair Alarm, Fall Risk, Lines/Tubes/Drains, Other: See Comments, Fluid Restrictions, Diet Restrictions, Weight Bearing Restrictions (NPO, Left Foot Wound Per RN WBCHELO) Respiratory, 5L 02 this date Left Lower Extremity Weight Bearing Status: WBAT (Per RN (Guadalupe)) CURRENT HOSPITAL COURSE admit for fluid overload; Acute on chronic respiratory failure Relevant Past Medical History: CKD 3b, chronic respiratory failure, morbid obesity, insulin dependent diabetes, left forefoot amputation HOME LIVING Patient Lives With: Self/Alone, Other: See Comment Comments: Apt 1st level In [place], [place] Assistance Available: Part-Time, Other: See Comment [...] independently prior to admit, and drives. Per [employer], Pt has been in and out of hospitals for the past six weeks. . Pt has five children in the area, and reported they check him daily. SUBJECTIVE I'm uncomfortable THERAPY DIAGNOSIS Reduced mobility-other, Muscle Weakness (generalized), General symptoms and signs-other TREATMENT INTERVENTIONS Evaluation, Gait Training (19043) Timed Code Treatment (minutes): 8 Skilled Treatment Time (minutes): 23 TRAINING AND EDUCATION PROVIDED Assistive Device Use, Benefits of In-Hospital Mobility, Gait Pattern, Reduction of Deviations, Precautions/Restrictions, Role of Physical Therapy, Transfers THERAPEUTIC SKILLS USED Activity Dosing, Cues for Sequencing/Proper Technique for Activity, Physical Assist, Movement Facilitation FUNCTIONAL STATUS Bed Mobility Rolling: Stand By Assistance Sit to Supine: Stand By Assistance Scooting: Stand By Assistance Transfers Sit To Stand: Contact Guard Assistance Stand To Sit: Stand By Assistance Bed to Chair Gait Contact Guard Assistance Gait Device: Wheeled Walker General Deviations/Observations: Step length decreased, Concha decreased, Antalgic gait [...] Lora DATE: October 24, 2023 TIME: 12:05 [facility] NTHNO ID: [id number] Author: LUZMA AVALOS, OTR/L Service: Occupational Therapy Author Type: Occupational Therapist Type: Therapy (PT/OT/Speech/Resp) Filed: 10/24/2023 12:02 Note Text: Occupational Therapy Evaluation Summary SERVICE DATE: 10/24/2023 SERVICE TIME: 839 to 904 ROOM: [place] [address] OT 6 Clicks Score: 19 SOB, BLE Edema Rt > Left, Elevated troponin, Fluid Overload. Pt Presents With Multiple Recent Hospital Admits. DISCHARGE RECOMMENDATIONS Home Anticipated Discharge Needs: Physical Assist at Home, Equipment Physical Assist at Home for: Transportation, Shopping, Laundry, Cleaning Recommended Discharge Equipment: Grab Bars-Shower, Hand Held Shower, Long Handled Shoe Horn, Long Handled Sponge, Wheeled Walker, Emulsion Operator, Shower Chair ASSESSMENT Response to Therapy [...] See Comment Comments: Apt 1st level In [place], [place] Assistance Available: Part-Time, Other: See Comment [...] independently prior to admit, and drives. Per [facility], Pt has been in and out [...] Muscle Weakness (generalized) TREATMENT INTERVENTIONS Evaluation, Self Jail Management (25919) Timed Code Treatment (minutes): 10 Skilled Treatment Time (minutes): 25 TRAINING AND EDUCATION PROVIDED Bed Mobility, Benefits of In-Hospital Mobility, Discharge Planning, Edema Management, Disease Specific Education, Energy Conservation, Expected Functional Level, Insight into Deficits, Positioning, Precautions/Restrictions, Role of Occupational Therapy, Safety/Judgment, Standing Balance to Improve [place] with ADLs/Self-Care, Transfer - Bed to Chair, [...] physical assistance. Rehab Po (more content not included)...NormalSterling HospitalURINALYSIS, REFLEX MICROSCOPICon 28-49-4798Lujzymvh LM.HPF (Urine sed) [#/Area]RareAbnormalNone SeenSterling HospitalComment on above:Order Comment: Specimen Type: BLOOD SPECIMEN [facility] Facility: [facility] Address: [address] [place], [place] [address]Performed By: #### 17372-4, 11428-9 #### [facility] CLIA [id number] [address] [place] [address] [place] AMERICABilirubin Ql (U)NegativeNormal NegativeSterling HospitalComment on above:Order Comment: Specimen Type: BLOOD SPECIMEN [facility] Facility: [facility] Address: [address] [place], [place] [address]Performed By: #### 51172-1, 81684-8 #### [facility] CLIA [id number] [address] [place] [address] [place] OF AMERICAClarity (Unsp spec)ClearNormalClear [facility] HospitalComment on above:Order Comment: Specimen Type: BLOOD SPECIMEN [facility] Facility: [facility] Address: [address] [place], [place] [address]Performed By: #### 66609-3, 70176-0 #### [facility] CLIA [id number] [address] [place] [address] [place] AMERICAColor (U)Light YellowNormalYellow Sterling HospitalComment on above:Order Comment: Specimen Type: BLOOD SPECIMEN [facility] Facility: [facility] Address: [address] [place], [place] [address]Performed By: #### 91161-6, 78981-7 #### [facility] CLIA [id number] [address] [place] [address] [place] AMERICAGlucose Test strip (U) [Mass/Vol] TraceNormalTrace, NegativeSterling HospitalComment on above:Order Comment: Specimen Type: BLOOD SPECIMEN [facility] Facility: [facility] Address: [address] [place], [place] [address]Performed By: #### 90633-4, 15094-8 #### [facility] CLIA [id number] [address] [place] [address] [place] OF [facility] HOSPITALHemoglobin Ql (U)1+AbnormalNegative, TraceFairsamaritan north health center HospitalComment on above:Order Comment: Specimen Type: BLOOD SPECIMEN [facility] Facility: [facility] Address: [address] [place], [place] [address]Performed By: #### 73261-4, 93794-8 #### [facility] CLIA [id number] [address] [place] [address] [place] AMERICAHyaline casts (Urine sed) [#/Area]4- 10 /LPFAbnormal0 /LPFFairsamaritan north health center HospitalComment on above:Order Comment: Specimen Type: BLOOD SPECIMEN [facility] Facility: [facility] Address: [address] [place], [place] [address]Performed By: #### 98596-4, 18815-2 #### [facility] CLIA [id number] [address] [place] [address] [place] AMERICAKetones Ql (U)NegativeNormal Negative, TraceSterling HospitalComment on above:Order Comment: Specimen Type: BLOOD SPECIMEN [facility] Facility: [facility] Address: [address] [place], [place] [address]Performed By: #### 81362-4, 32103-9 #### [facility] CLIA [id number] [address] [place] [address] [place] AMERICALeukocyte esterase Test strip Ql (U) 500 Moira/uLAbnormalNegative, 25 Moira/uLFairsamaritan north health center HospitalComment on above:Order Comment: Specimen Type: BLOOD SPECIMEN [facility] Facility: [facility] Address: [address] [place], [place] [address]Performed By: #### 96566-8, 62402-2 #### [facility] CLIA [id number] [address] [place] [address] [place] AMERICANitrite Ql (U)NegativeNormalNegative Sterling HospitalComment on above:Order Comment: Specimen Type: BLOOD SPECIMEN [facility] Facility: [facility] Address: [address] [place], [place] [address]Performed By: #### 67527-2, 01716-9 #### [facility] CLIA [id number] [address] [place] [address] STATES CATHOLIC HEALTHpH (U)5.5 [pH]Normal5.0-8.0Fafederal medical center, dev[facility] HospitalComment on above:Order Comment: Specimen Type: BLOOD SPECIMEN [facility] Facility: [facility] Address: [address] [place], [place] [address]Performed By: #### 18128-7, 76258-8 #### [facility] CLIA [id number] [address] [place] [address] [place] CATHOLIC HEALTHProtein (U) [Mass/Vol]1+Abnormal Trace, NegativeFafederal medical center, devens HospitalComment on above:Order Comment: Specimen Type: BLOOD SPECIMEN [facility] Facility: [facility] Address: [address] [place], [place] [address]Performed By: #### 79840-5, 95601-1 #### [facility] CLIA [id number] [address] [place], [place] [address] LM.HPF (Urine sed) [#/Area] /[HPF]Abnormal0-3 /HPFFafederal medical center, devens HospitalComment on above:Order Comment: Specimen Type: BLOOD SPECIMEN [facility] Facility: [facility] Address: [address] [place], [place] [address]Performed By: #### 98497-9, 09008-9 #### [facility] CLIA [id number] [address] [place] [address] [place] AMERICASpecific gravity (U) [Rel density] 1.497Hsqqgt2.005-1.030Fafederal medical center, devens HospitalComment on above:Order Comment: Specimen Type: BLOOD SPECIMEN [facility] Facility[facility] Address: [address] [place], [place] [address]Performed By: #### 72249-4, 28390-1 #### [facility] CLIA [id number] [address] [place] [address] [place] AMERICAUrobilinogen Ql (U)NormalNormal NormalSterling HospitalComment on above:Order Comment: Specimen Type: BLOOD SPECIMEN [facility] Facility: [facility] Address: [address] [place], [place] [address]Performed By: #### 09396-8, 12608-2 #### [facility] CLIA [id number] [address] [place] [address] [place] AMERICAWBC LM.HPF (Urine sed) [#/Area]11-25 /HPFAbnormal0-5 /HPFFafederal medical center, devens HospitalComment on above:Order Comment: Specimen Type: BLOOD SPECIMEN [facility] Facility[facility] Address: [address] [place], [place] [address]Performed By: #### 09819-9, 13351-4 #### [facility] CLIA [id number] [address] [place] [address] [place] AMERICAUS KIDNEY/BLADDERon 69-92-5278MO KIDNEY/BLADDER* * *Final Report* * * DATE OF EXAM: Oct 24 2023 4:59PM [facility] 1055 - KIDNEY/BLADDER / PROCEDURE REASON: Kidney failure, acute [...] Otherwise limited assessment especially on the left. Publications Inspector: PSCErika Transcribe Date/Time: Oct 25 2023 7:19A Dictated by : KASHIF PIERSON MD This examination was interpreted and the report reviewed and electronically signed by: KASHIF PIERSON MD on Oct 25 2023 7:21AM EST [id number]. Michael's Hospital [id number] HEALTHHNO ID: [id number] Author: LI WEN RDMS Service: Radiology Author Type: Lunchroom Operator Type: [facility] Filed: 10/23/2023 18:11 Note Text: Radiology [...] PATIENT PRESENTS WITH AN IMPLANTABLE OR ATTACHED BLOWER ROOM ATTENDANT: No RADIOLOGY DEPARTMENT: Ultrasound PERIPHERAL IV DATA: Not applicable SIGNED BY: Li Wen RDMS October 23, 2023 6:10 [facility] ID: [id number] Author: MALOU NINO RT(R) Service: Radiology Author Type: Technologist Type: [facility] Filed: 10/23/2023 17:32 Note Text: Radiology Service [...] PATIENT PRESENTS WITH AN IMPLANTABLE OR ATTACHED BLOWER ROOM ATTENDANT: No RADIOLOGY DEPARTMENT: General X-ray: Exam(s) Completed: Chest X-Ray PERIPHERAL IV DATA: Not applicable SIGNED BY: Malou Nino RT(R) October 23, 2023 5:32 PMNormalBayRidge Hospital W Auto Differential panel (Bld) on 75-98-2478Kcypjnfqj (Bld) [#/Vol]10*3/uLNormal<0.11Sterling HospitalComment on above:Order Comment: Specimen Type: BLOOD SPECIMEN [facility] Facility[facility] Address: [address] [place], [place] [address]Performed By: #### 28054-6, 22505-1 #### [facility] CLIA [id number] [address] [place], [place] [address] [place] AMERICABasophils/100 WBC (Bld)0.3 %Normal [facility] HospitalComment on above:Order Comment: Specimen Type: BLOOD SPECIMEN [facility] Facility: [facility] Address: [address] [place], [place] [address]Performed By: #### 54490-9, 68628-3 #### [facility] CLIA [id number] [address] [place] [address] [place] AMERICADifferential cell count method Nom (Bld)AutoNormalMelrosewakefield HospitalComment on above:Order Comment: Specimen Type: BLOOD SPECIMEN [facility] Address: [address] [place], [place] [address]Performed By: #### 16618-9, 47470-2 #### [facility] CLIA [id number] [address] [place] [address] [place] AMERICAEosinophils (Bld) [#/Vol]0.27 10*3/uLNormal<0.46Sterling HospitalComment on above:Order Comment: Specimen Type: BLOOD SPECIMEN [facility] Facility[facility] Address: [address] [place], [place] [address]Performed By: #### 59897-1, 80790-1 #### [facility] CLIA [id number] [address] [place], [place] [address] [place] AMERICAEosinophils/100 WBC (Bld)3.8 %Normal Sterling HospitalComment on above:Order Comment: Specimen Type: BLOOD SPECIMEN [facility] Facility[facility] Address: [address] [place], [place] [address]Performed By: #### 66038-8, 68715-2 #### [facility] CLIA [id number] [address] [place] [address] [place] AMERICAErythrocyte distribution width (RBC) [Ratio]16.3 %High11.5-15.0Fafederal medical center, devens HospitalComment on above:Order Comment: Specimen Type: BLOOD SPECIMEN [facility] Facility[facility] Address: [address] [place], [place] [address]Performed By: #### 57826-8, 02255-4 #### [facility] CLIA [id number] [address] [place] [address] [place] AMERICAHematocrit (Bld) [Volume fraction] 40.6 %Wmixez02.0-51.0Fafederal medical center, devens HospitalComment on above:Order Comment: Specimen Type: BLOOD SPECIMEN [facility] Facility[facility] Address: [address] [place], [place] [address]Performed By: #### 20746-2, 85173-9 #### [facility] CLIA [id number] [address] [place] [address] [place] AMERICAHemoglobin (Bld) [Mass/Vol]12.4 g/dL Low13.0-17.0Fafederal medical center, devens HospitalComment on above:Order Comment: Specimen Type: BLOOD SPECIMEN [facility] Facility[facility] Address: [address] [place], [place] [address]Performed By: #### 76797-1, 07730-0 #### [facility] CLIA [id number] [address] [place] [address] [place] AMERICAImmature granulocytes (Bld) [#/Vol] 0.04 10*3/uLNormal<0.10Fafederal medical center, devens HospitalComment on above:Order Comment: Specimen Type: BLOOD SPECIMEN [facility] Facility[facility] Address: [address] [place], [place] [address]Performed By: #### 21679-3, 52582-1 #### [facility] CLIA [id number] [address] [place] [address] [place] AMERICAImmature granulocytes/100 WBC (Bld) 0.6 %NormalSterling HospitalComment on above:Order Comment: Specimen Type: BLOOD SPECIMEN [facility] Facility: [facility] Address: [address] [place], [place] [address]Performed By: #### 06976-1, 31430-0 #### [facility] CLIA [id number] [address] [place] [address] [place] AMERICALymphocytes (Bld) [#/Vol]1.04 10*3/uLNormal1.00-4.00Sterling HospitalComment on above:Order Comment: Specimen Type: BLOOD SPECIMEN [facility] Facility[facility] Address: [address] [place], [place] [address]Performed By: #### 05864-0, 76803-8 #### [facility] CLIA [id number] [address] [place] [address] [place] AMERICALymphocytes/100 WBC (Bld)14.7 % NormalSterling HospitalComment on above:Order Comment: Specimen Type: BLOOD SPECIMEN [facility] Facility[facility] Address: [address] [place], [place] [address]Performed By: #### 36839-3, 10145-3 #### [facility] CLIA [id number] [address] [place] [address] (RBC) [Entitic mass]27.1 pg Hcmwfl17.0-34.0Fafederal medical center, devens HospitalComment on above:Order Comment: Specimen Type: BLOOD SPECIMEN [facility] Facility[facility] Address: [address] [place], [place] [address]Performed By: #### 19592-4, 00842-7 #### [facility] CLIA [id number] [address] [place] [address] (RBC) [Mass/Vol]30.5 g/dLNormal 30.5-36.0Fafederal [facility] center, devens HospitalComment on above:Order Comment: Specimen Type: BLOOD SPECIMEN [facility] Facility: [facility] Address: [address] [place], [place] [address]Performed By: #### 24583-7, 88287-8 #### [facility] CLIA [id number] [address] [place] [address] [place] AMERICAMCV (RBC) [Entitic vol]88.6 fLNormal 80.0-100.0Fafederal medical center, devens HospitalComment on above:Order Comment: Specimen Type: BLOOD SPECIMEN [facility] Facility[facility] Address: [address] [place], [place] [address]Performed By: #### 27482-9, 57162-7 #### [facility] CLIA [id number] [address] [place] [address] [place] AMERICAMonocytes (Bld) [#/Vol]0.74 10*3/uL Normal<0.87Fafederal medical center, devens HospitalComment on above:Order Comment: Specimen Type: BLOOD SPECIMEN [facility] Facility[facility] Address: [address] [place], [place] [address]Performed By: #### 60869-7, 67456-4 #### [facility] CLIA [id number] [address] [place] [address] [place] AMERICAMonocytes/100 WBC (Bld)10.4 %Normal [facility]field HospitalComment on above:Order Comment: Specimen Type: BLOOD SPECIMEN [facility] Facility: [facility] Address: [address] [place], [place] [address]Performed By: #### 66255-2, 60775-6 #### [facility] CLIA [id number] [address] [place] [address] [place] AMERICANeutrophils (Bld) [#/Vol]4.98 10*3/uLNormal1.45-7.50Fafederal medical center, devens HospitalComment on above:Order Comment: Specimen Type: BLOOD SPECIMEN [facility] Facility: [facility] Address: [address] [place], [place] [address]Performed By: #### 42479-5, 44195-9 #### [facility] CLIA [id number] [address] [place] [address] [place] AMERICANeutrophils/100 WBC (Bld)70.2 % NormalSterling HospitalComment on above:Order Comment: Specimen Type: BLOOD SPECIMEN [facility] Facility: [facility] Address: [address] [place], [place] [address]Performed By: #### 85745-7, 46114-1 #### [facility] CLIA [id number] [address] [place] [address] [place] AMERICANucleated RBC (Bld) [#/Vol]10*3/uL Normal<0.01Sterling HospitalComment on above:Order Comment: Specimen Type: BLOOD SPECIMEN [facility] Facility: [facility] Address: [address] [place], [place] [address]Performed By: #### 67897-3, 40380-0 #### [facility] CLIA [id number] [address] [place] [address] [place] AMERICANucleated RBC/100 WBC (Bld) [Ratio] 0.0 /100 WBCNormalSterling HospitalComment on above:Order Comment: Specimen Type: BLOOD SPECIMEN [facility] Facility: [facility] Address: [address] [place], [place] [address]Performed By: #### 74320-4, 62804-1 #### [facility] CLIA [id number] [address] [place] [address] [place] AMERICAPlatelet mean volume (Bld) [Entitic vol]8.9 fLLow9.0-12.7Fhaverhill pavilion behavioral health hospital HospitalComment on above:Order Comment: Specimen Type: BLOOD SPECIMEN [facility] Facility: [facility] Address: [address] [place], [place] [address]Performed By: #### 99953-2, 98988-0 #### [facility] CLIA [id number] [address] [place] [address] [place] AMERICAPlatelets (Bld) [#/Vol]220 10*3/uL Wmvvlg276-313Trittkno HospitalComment on above:Order Comment: Specimen Type: BLOOD SPECIMEN [facility]ing Facility: [facility] Address: [address] [place] [address]Rdwmxuaii By: #### 32182-5, 92052-7 #### [facility] CLIA [id number] [address] [place], [place] [address]RB (Bld) [#/Vol]4.58 10*6/uLNormal 4.20-6.00Fafederal medical center, devens HospitalComment on above:Order Comment: Specimen Type: BLOOD SPECIMEN [facility] Facility: [facility] Address: [address] [place], [place] [address]Performed By: #### 29972-6, 49552-3 #### [facility] CLIA [id number] [address] [place], [place] [address]W (Bld) [#/Vol]7.09 10*3/uLNormal 3.70-11.00Fafederal medical center, devens HospitalComment on above:Order Comment: Specimen Type: BLOOD SPECIMEN [facility] Facility: [facility] Address: [address] [place], [place] [address]Performed By: #### 38548-2, 46370-4 #### [facility] CLIA [id number] [address] [place] [address] AMERICAComprehensive metabolic 2000 panelon 36-33-2542Ibnlmst [Mass/Vol]3.5 g/dLLow3.9-4.9Fafederal medical center, devens HospitalComment on above:Order Comment: Specimen Type: BLOOD SPECIMEN [facility] Facility: [facility] Address: [address] [place], [place] [address]Performed By: #### HSTNT, 3016-3, 55413-0, 22165-6 #### [facility] CLIA [id number] [address] [place], [place] [address] [facility] CENTERALP [Catalytic activity/Vol]112 U/L Dftqds66-210Iwqrvdev HospitalComment on above:Order Comment: Specimen Type: BLOOD SPECIMEN [facility] Facility[facility] Address: [address] [place], [place] [address]Performed By: #### HSTNT, 3016-3, 52024-6, 17273-3 #### [facility] CLIA [id number] [place] [address] [place] AMERICAALT [Catalytic activity/Vol]19 U/L Vmyryw45-11Dpppitfy HospitalComment on above:Order Comment: Specimen Type: BLOOD SPECIMEN [facility] Facility: [facility] Address: [address] [place], [place] [address]Performed By: #### HSTNT, 3016-3, 72663-7, 43732-1 #### [facility] CLIA [id number] [address] [place] [address] [place] AMERICAAnion gap [Moles/Vol]11 mmol/LNormal 9-18Fhaverhill [facility] HospitalComment on above:Order Comment: Specimen Type: BLOOD SPECIMEN [facility] Facility: [facility] Address: [address] [place], [place] [address]Performed By: #### HSTNT, 6-3, 47857-7, 29437-9 #### [facility] CLIA [id number] [address] [place] [address] [place] AMERICAAST [Catalytic activity/Vol]21 U/L Rpcyiu54-44Mjawljaj HospitalComment on above:Order Comment: Specimen Type: BLOOD SPECIMEN [facility] Facility[facility] Address: [address] [place], [place] [address]Performed By: #### HSTNT, 6-3, 29726-0, 31359-6 #### [facility] CLIA [id number] [address] [place] [address] [place] AMERICABilirubin [Mass/Vol]0.4 mg/dLNormal 0.2-1.3Fhaverhill pavilion [facility] health hospital HospitalComment on above:Order Comment: Specimen Type: BLOOD SPECIMEN [facility] Facility: [facility] Address: [address] [place], [place] [address]Performed By: #### HSTNT, 3016-3, 25289-7, 82111-2 #### [facility] CLIA [id number] [address] [place] [address] [place] AMERICACalcium [Mass/Vol]8.6 mg/dLNormal 8.5-10.2FMassachusetts Mental Health CenterComment on above:Order Comment: Specimen Type: BLOOD SPECIMEN [facility] Facility[facility] Address: [address] [place], [place] [address]Performed By: #### HSTNT, 3016-3, 16801-8, 93856-7 #### [facility] CLIA [id number] [address] [place] [address] [place] AMERICAChloride [Moles/Vol]100 mmol/LNormal 97-105Sterling HospitalComment on above:Order Comment: Specimen Type: BLOOD SPECIMEN [facility] Facility[facility] Address: [address] [place], [place] [address]Performed By: #### HSTNT, 3016-3, 76336-2, 27459-6 #### [facility] CLIA [id number] [address] [place] [address] [place] AMERICACO2 [Moles/Vol]28 mmol/EDuospu36-67 [facility] HospitalComment on above:Order Comment: Specimen Type: BLOOD SPECIMEN [facility] Facility[facility] Address: [address] [place], [place] [address]Performed By: #### HSTNT, 3016-3, 31441-4, 83918-7 #### [facility] CLIA [id number] [address] [place] [address] [place] AMERICACreatinine [Mass/Vol]2.00 mg/dLHigh 0.73-1.22Melrosewakefield HospitalComment on above:Order Comment: Specimen Type: BLOOD SPECIMEN [facility] Facility: [facility] Address: [address] [place], [place] [address]Performed By: #### HSTNT, 3016-3, 37840-6, 78701-2 #### [facility] CLIA [id number] [address] [place] [address] [place] AMERICACreatinine and Glomerular filtration rate.predicted panel (S/P/Bld)37 mL/min/1.73m???Low>=60FaBoston DispensaryComment on above:Order Comment: Specimen Type: BLOOD SPECIMEN [facility] Facility: [facility] Address: [address] [place], [place] [address]Yxghxg Comment: Estimated Glomerular Filtration Rate (eGFR) is calculated using the 2020 CKD-EPI cre atinine equation. This equation utilizes serum creatinine, sex, and age as parameters. The creatinine assay has traceable calibration to isotope dilution- mass spectrometry. Refer to KDIGO guidelines for clinical interpretation. In patients with unstable renal function, e.g. those with acute kidney injury, the eGFR may not accurately reflect actual GFR.Performed By: #### HSTNT, 3016-3, 74190-4, 59549-5 #### [facility] CLIA [id number] [address] [place] [id number] [place] AMERICAGlucose [Mass/Vol]138 mg/dXCaon71-[address] [facility] on above:Order Comment: Specimen Type: BLOOD SPECIMEN [facility] Facility[facility] Address: [address] [place], [place] [address]Result Comment: The [place] Diabetes Association (ADA) provides guidance for cutoff [...] Standards of Medical Care in Diabetes 2016, [place] [employer]. Diabetes Care. 2016.39(Suppl 1).Performed By: #### HSTNT, 3016-3, 31417-4, 10387-3 #### [facility] CLIA [id number] [address] [place] [address] [place] AMERICAPotassium [Moles/Vol]4.6 mmol/L Normal3.7-5.1FWesson Women's Hospital on above:Order Comment: Specimen Type: BLOOD SPECIMEN [facility] Facility[facility] Address: [address] [place], [place] [address]Performed By: #### HSTNT, 3016-3, 84739-5, 80432-1 #### [facility] CLIA [id number] [address] [place] [address] [place] AMERICAProtein [Mass/Vol]6.5 g/dLNormal 6.3-8.0Melrosewakefield HospitalComment on above:Order Comment: Specimen Type: BLOOD SPECIMEN [facility] Facility[facility] Address: [address] [place], [place] [address]Performed By: #### HSTNT, 3016-3, 20957-8, 51705-5 #### [facility] CLIA [id number] [address] [place] [address] [place] AMERICASodium [Moles/Vol]139 mmol/LNormal 136-144Fafederal medical center, devens HospitalComment on above:Order Comment: Specimen Type: BLOOD SPECIMEN [facility] Facility[facility] Address: [address] [place], [place] [address]Performed By: #### HSTNT, 3016-3, 11186-7, 21436-0 #### [facility] CLIA [id number] [address] [place] [address] [place] AMERICAUrea nitrogen [Mass/Vol]60 mg/dLHigh 9-24Fafederal medical center, devens HospitalComment on above:Order Comment: Specimen Type: BLOOD SPECIMEN [facility] Facility[facility] Address: [address] [place], [place] [address]Performed By: #### HSTNT, 3016-3, 49256-6, 82300-2 #### [facility] CLIA [id number] [address] [place] [address] [place] AMERICAECG COMPLETEon 95-51-1262OKL COMPLETEVentricular Rate : 77 BPM Atrial Rate : 78 BPM P-R Interval : 180 ms QRS Duration : 97 ms Q-T Interval : 389 ms QTC Calculation(Bazett) : 441 ms Calculated P [place] : 53 degrees Calculated R [place] : -76 degrees Calculated T [place] : 65 degrees Sinus rhythm Left anterior fascicular block Abnormal ECG no stemi Confirmed by DARNELL YIN MD ([id number]), food editor JACQUELINE ROSALES ([id number]) on 10/24/2023 10:36:37 AM NAME : NICOLE LORA PID : [id number] : 1960 Gender : Male Race : ORD : [id number] Procedure Date : Oct 23 2023 20:16:04 Edit Date : Oct 24 2023 10:36:39 Diagnosis: Sinus rhythm Left anterior fascicular block Abnormal ECG no stemi Confirmed by DARNELL YIN MD ([id number]), food editor JACQUELINE ROSALES ([id number]) on 10/24/2023 10:36:37 AM Test Reason : Other - Specify Location : 402 : FVED [id number] Overread By : DARNELL YIN MD Edited By : JACQUELINE ROSALES Referred By : , Acquired by : [id number] NOTEon 04-80-7480RN NOTEHNO ID: [id number] Author: PER HARDWICK RN Service: ? Author Type: Registered Nurse Type: ED Notes Filed: 10/23/2023 19:07 Note Text: [facility] NOTEon 11-32-2194CG [facility] NOTE HNO ID: [id number] Author: DARNELL YIN MD Service: Emergency Medicine Author Type: Physician Type: ED Provider Notes Filed: 10/24/2023 15:12 Note Text: ED Provider Note Patient Name: Nicole Lora : 1960 SERVICE DATE: 10/23/23 History Patient presents with: Shortness of Breath: On 4L O2 13/03 Edema: Chronic BLE History provided by: Patient and relative (daughter) parts interpreter used: No 63 year old male with history of DM, MRSA, urinary retention, CKD , chronic home O2 4L with complaint of swelling in leg. He has been in and out of the hospital for the past 6 weeks at [facility]. He was initially found to [...] Date - IDDM (insulin dependent diabetes mellitus) ([facility]) - MRSA infection PAST SURGICAL HISTORY Procedure [...] three times daily before meals. - INSULIN GLARGINE,HUM.REC.ANLOG (LANTUS SOLOSTAR SUBCUTANEOUS) Inject 40 [...] Abnormal; Notable for the (more content not included)...Normal [facility] HospitalED Triage Noteon 85-96-1304JE Triage NoteHNO ID: [id number] Author: JASKARAN VARELA MD Service: ? Author Type: Physician Type: [...] Enzyme BNP CXR No diagnosis found. SIGNATURE: [facility]jonQu[facility] Center SENSITIVITY TROPONIN Ton 91-00-3543Yzubzrcu T.cardiac High sensitivity method [Mass/Vol]167 ng/LHigh<[address] [facility] on above:Order Comment: Specimen Type: BLOOD SPECIMENOrdering Facility: [facility] Address:[address] [place], [place] [address]Result Comment: When assessing risk for acute coronary syndromes: In patients undergoing blood drawgreater than or equal to 2 hours from symptom onset, with history of very low to moderate risk and non-ischemic ECG, an initial hs-Troponin T less than 12 ng/L AND a 1 hour delta hs-Troponin T less than 3 ng/L should be considered very low risk for 30 day MACE.Performed By: #### HSTNT ####[facility] LABORATORYCLIA [id number] [place] [address] [place] AMERICATroponin T.cardiac High sensitivity method [Mass/Vol]172 ng/LHigh<12Melrosewakefield HospitalComment on above: Order Comment: Specimen Type: BLOOD SPECIMEN [facility] Address: [address] [place], [place] [address]Result Comment: When assessing risk for acute coronary syndromes: In patients undergoing blood drawgreater than or equal to 2 hours from symptom onset, with history of very low to moderate risk and non-ischemic ECG, an initial hs-Troponin T less than 12 ng/L AND a 1 hour delta hs-Troponin T less than 3 ng/L should be considered very low risk for 30 day MACE.Performed By: #### HSTNT, 3016-3, 95469-1, 16294-2 #### [facility] CLIA [id number] [address] [place] [address] [place] OF AMERICANT-proBNP SerPl-ncon 10-23-2023 Natriuretic peptide.B prohormone N-Terminal [Mass/Vol]1124 pg/mLHigh<125FaBoston DispensaryComcorewell health ludington hospital on above:Order Comment: Specimen Type: BLOOD SPECIMEN [facility] Address: [address] [place], [place] [address]Performed By: #### HSTNT, 3016-3, 41630-2, 18916-0 #### [facility] CLIA [id number] [address] [place] [address] [facility]ENTERTS SerPl-aCncon 49-77-0173KAZ Qn 2.630 m[IU]/LNormal0.270-4.200Fafederal medical center, devens HospitalComment on above:Order Comment: Specimen Type: BLOOD SPECIMEN [facility] Facility[facility] Address: [address] [place], [place] [address]Performed By: #### HSTNT, 3016-3, 51700-4, 29765-9 #### [facility] CLIA [id number] [address] [place] [address] [facility] CENTERUS DVT LOWER BILon 95-83-7609SZ DVT LOWER EDWARD* * *Final Report* * * DATE OF [...] OF THE LEFT AND RIGHT LOWER EXTREMITIES. Publications Inspector: [facility] Transcribe Date/Time: Oct 23 2023 6:44P Dictated by : PRESTON GONZALEZ MD This examination was interpreted and the report reviewed and electronically signed by: PRESTON GONZALEZ MD on Oct 23 2023 6:47PM EST [id number] Memorial HospitalXR CHEST 1V FRONTAL PORTon 37-20-8124KQ CHEST 1V FRONTAL PORT* * *Final Report* * * DATE OF [...] venous hypertension and possible mild pulmonary edema. Publications Inspector: SAM Transcribe Date/Time: Oct 23 2023 5:22P Dictated by : RADHA KONG MD This examination was interpreted and the report reviewed and electronically signed by: RADHA KONG MD on Oct 23 2023 5:25PM EST [id number] Memorial HospitalPre-Certification Formon 10-20-2023 Pre-Certification [id number]#1.00TIFMercy Health [address] Rita's Medical CenterAmbulatory Visit Summaryon 67-19-7764Ocrfyzbwfn Visit SummaryWayne HealthCare Main CampusPatient Educationon 10-85-8072Uwfjsyg EducationNoKing's Daughters Medical Center OhioUrology Office/Clinic Noteon 56-94-3445Pwtavpk Office/Clinic NoteWayne HealthCare Main CampusComment on above:Result Comment: Electronically Signed By: Basia Claire\.br\Date and Time Signed: 10/18/23 09:42 EST\.br\Electronically Co-Signed By: Bailey Vásquez\.br\Date and Time Co-Signed: 10/18/23 09:44 EST\.br\Electronically Co- Signed By: Taz THOMAS MD\.br\Date and Time Co-Signed: 10/18/23 15:44 EST Consent for Treatmenton 97-47-3875Axljomg for Treatment [id number]#1.00TIFKettering HealthDischarge Instructionson 43-78-6067Dknqsrrhl Instructions [id number]#1.00TIFThe Jewish Hospital CenterED Clinical Summaryon 64-16-6261ZY Clinical SummaryNoOhioHealth Southeastern Medical Center CenterED Note-Physicianon 24-74-1273WJ Note-PhysicianNoKing's Daughters Medical Center OhioComment on above:Result Comment: Electronically Signed By: Mone Martinez DO.samir\Date and Time Signed: 10/15/23 06:52 ESTED Patient Education Noteon 02-28-1963XZ Patient Education NoteNormVan Wert County Hospital Patient Summaryon 74-97-4608BG Patient SummaryNoKing's Daughters Medical Center Ohio Calcium [Mass/volume] in Serum or PlasmaOrdered By: Yesi Murphy on 29-79-1246Zamouni [Mass/Vol]8.2 mg/dL8.6-10.3FCherrington Hospital Carbon dioxide, total [Moles/volume] in Serum or PlasmaOrdered By: Yesi Murphy on 77-54-9955AG0 [Moles/Vol]33.7 mmol/L21.0-31.0[facility] Medical CenterChloride [Moles/volume] in Serum or PlasmaOrdered By: Yesi Murphy on 00-42-5412Kfoqoxaf [Moles/Vol]100 mmol/H58-477PenzdqmdhUniversity Hospitals Geauga Medical CenterCreatinine [Mass/volume] in Serum or PlasmaOrdered By: Yesi Murphy on 61-32-8488Nnbnghnhys [Mass/Vol]1.91 mg/dL0.70-1.30[facility] Medical CenterGlucose [Mass/volume] in Serum or PlasmaOrdered By: Yesi Murphy on 19-25-8216Chpxoeq [Mass/Vol]250 mg/vX30-822DwdqnyddvUniversity Hospitals Geauga Medical CenterComment on above:ADA recommended reference rangeRandom Glucose Reference Range is dependent on time and content of last meal. Glucose of more than 200 mg/dL in a nonstressed, ambulatory subject supports the diagnosisof Diabetes Mellitus.No Panel InformationOrdered By: Yesi Murphy on 10-13-2023 Estimated GFR (CKD-EPI)38.661 mL/MinUniversity Hospitals Geauga Medical CenterPharmacy Creatinine Clearance (ChemN/[facility]CCI [facility] LimaPotassium [Moles/volume] in Serum or PlasmaOrdered By: Yesi Murphy on 10-13-2023 Potassium [Moles/Vol]4.3 mmol/L3.5-5.1FRiverview Health Instituteerum or plasma anion gap determinationOrdered By: Yesi Murphy on 54-58-8270Rwslf gap [Moles/Vol]10.6 mmol/L6.0-15.0Wadsworth-Rittman Hospitalodium [Moles/volume] in Serum or PlasmaOrdered By: Yesi Murphy on 46-24-1720Aeuijb [Moles/Vol]140 mmol/U651-196HwisluuqkUniversity Hospitals Geauga Medical CenterUrea nitrogen [Mass/volume] in Serum or PlasmaOrdered By: Yesi Murphy on 42-41-1359Qzje nitrogen [Mass/Vol]52 mg/dL7-25[facility] Medical CenterAlbumin [Mass/volume] in Serum or Plasma by Bromocresol green (BCG) dye binding metho Ordered By: Gigi Cooper on 97-11-1550Oarptud BCG dye [Mass/Vol]3.6 g/dL3.5-5.7 [facility] Medical CenterCalcium [Mass/volume] in Serum or PlasmaOrdered By: Gigi Cooper on 12-13-1404Pbshknc [Mass/Vol]8.8 mg/dL8.6-10.3FCherrington HospitalCarbon dioxide, total [Moles/volume] in Serum or Plasma Ordered By: Gigi Cooper on 10-20-5856JF6 [Moles/Vol]32.8 mmol/L21.0-31.0 [facility] Medical CenterChloride [Moles/volume] in Serum or Plasma Ordered By: Gigi Cooper 34-55-5757Zqguzvey [Moles/Vol]96 mmol/L98-107 [facility] Medical CenterCreatinine [Mass/volume] in Serum or Plasma Ordered By: Gigi Cooper 19-60-8986Hlpqyulqax [Mass/Vol]1.95 mg/dL0.70-1.30 [facility] Medical CenterGlucose Glucometer (BldC) [Mass/Vol]Ordered By: Yesi Murphy on 99-62-9984Kavgbva [Mass/Vol]224 mg/dLUniversity Hospitals Geauga Medical CenterComment on above:Random Glucose Reference Range is dependent on time and content of last meal. Glucose of more than 200 mg/dL in a nonstressed, ambulatory subject supports the diagnosis of Diabetes Mellitus.Glucose [Mass/volume] in Serum or PlasmaOrdered By: Gigi Cooper on 72-14-9880Ekbvjto [Mass/Vol]275 mg/hJ59-644GiyaidjmnUniversity Hospitals Geauga Medical CenterComment on above: Delta: 157 on 10/11/23-0643ADA recommended reference rangeRandom Glucose Reference Range is dependent on time and content of last meal. Glucose of more than 200 mg/dL in a nonstressed, ambulatory subject supports the diagnosis of Diabetes Mellitus.No Panel InformationOrdered By: Gigi Cooper on 10-12-2023 Estimated GFR (CKD-EPI)37.711 mL/MinUniversity Hospitals Geauga Medical CenterPharmacy Creatinine Clearance (Chem54.56[facility]aug[facility] Medical CenterNo Panel InformationOrdered By: Yesi Murphy on 13-43-6888Xxdvlcv Glucose CommentGlu2: cleaned meterUniversity Hospitals Geauga Medical CenterPhosphate [Mass/volume] in Serum or PlasmaOrdered By: Gigi Cooper on 37-62-0174Jcbaihiwg [Mass/Vol]3.4 mg/dL 2.5-4.5FCherrington HospitalPotassium [Moles/volume] in Serum or PlasmaOrdered By: Gigi Cooper on 81-03-1919Zixunwujm [Moles/Vol]3.9 mmol/L 3.5-5.1FRiverview Health Instituteerum or plasma anion gap determination Ordered By: Gigi Cooper on 28-28-7467Vsrdl gap [Moles/Vol]10.1 mmol/L6.0-15.0 [facility]sworth-Rittman Hospitalodium [Moles/volume] in Serum or PlasmaOrdered By: Gigi Cooper on 72-31-2512Natabs [Moles/Vol]135 mmol/U963-346DxyfkvyyyUniversity Hospitals Geauga Medical CenterUrea nitrogen [Mass/volume] in Serum or PlasmaOrdered By: Gigi Cooper on 74-35-7083Ayzs nitrogen [Mass/Vol]48 mg/dL7-25[facility] Medical CenterAutomated erythrocytes count in urine sediment (number/area)Ordered By: Gigi Cooper on 29-19-3965LIB Auto (Urine sed) [#/Area] None seen [HPF]0-4FCherrington HospitalAutomated leukocytes count in urine sediment (number/area)Ordered By: Gigi Cooper on 96-93-9259PAY Auto (Urine sed) [#/Area]None seen [HPF]0-4FCherrington HospitalBilirubin Test strip Ql (U)Ordered By: Gigi Cooper on 26-99-0922Ogveovlhw Ql (U)Negative NegativeUniversity Hospitals Geauga Medical CenterColor Auto (U)Ordered By: Gigi Cooper on 40-78-7084Qqwjz (U)YellowYellowUniversity Hospitals Geauga Medical CenterKetones Auto test strip (U) [Mass/Vol]Ordered By: Gigi Cooper on 50-78-1470Qjyqyvl (U) [Mass/Vol]NegativeNegativeUniversity Hospitals Geauga Medical CenterLaboratory - UrinalysisOrdered By: Gigi Cooper on 01-83-2484Xgblzyi casts LM Ql (Urine sed) 0-8 [LPF]0-8[facility] Geauga Medical CenterNitrite Test strip Ql (U)Ordered By: Gigi Cooper on 83-26-6370Fpjoanc Ql (U)NegativeNegAvita Health System Galion HospitalProtein Auto test strip (U) [Mass/Vol]Ordered By: Gigi Cooper on 94-88-7927Jyifjvx (U) [Mass/Vol]30 mg/dLNegWestern Reserve Hospitalpecific gravity Auto test strip (U) [Rel density]Ordered By: Gigi Cooper on 98-72-2949Czbigmgm gravity (U) [Rel density]1.0081.001-1.030Wadsworth-Rittman Hospitalquamous epithelial cells detection in urine sediment by light microscopyOrdered By: Gigi Cooper on 96-50-0936Lajrthviin cells.squamous LM Ql (Urine sed)None seen [HPF]0-2FCherrington HospitalUrine bacteria detection by automated methodOrdered By: Gigi Cooper on 10-10-2023 Bacteria Auto Ql (U)None seenNone SeenUniversity Hospitals Geauga Medical CenterUrine clarity by refractometry automatedOrdered By: Gigi Cooper on 74-92-8081Ezgqbrg Refractometry automated (U)ClearCleWexner Medical CenterUrine glucose measurement by automated test strip (mass/volume)Ordered By: Gigi Cooper on 11-77-5286Rcscsjh Auto test strip (U) [Mass/Vol]Normal mg/dLCleveland Clinic Children'S Hospital For RehabilitationUrine hemoglobin detection by automated test stripOrdered By: Gigi Cooper on 23-93-1320Xyzbudulqu Auto test strip Ql (U) NegativeNegAvita Health System Galion HospitalUrine leukocyte esterase detection by automated test stripOrdered By: Gigi Cooper on 47-89-0927Iticxnvgn esterase Auto test strip Ql (U)NegativeNegAvita Health System Galion HospitalUrobilinogen Auto test strip (U) [Mass/Vol]Ordered By: Gigi Cooper on 52-65-7811Foeqhcfqodsk (U) [Mass/Vol]Normal mg/dLNoDelaware County HospitalpH Auto test strip (U)Ordered By: Gigi Cooper on 47-87-2879tH (U) 5.0 [pH]5.0-9.0[facility] Medical CenterMagnesium [Mass/volume] in Serum or PlasmaOrdered By: Ramses Masters on 10-84-5671Xzdnltfot [Mass/Vol]2.0 mg/dL 1.9-2.7FCherrington HospitalNursing Note - Woundon 27-88-5353Yunoejc Note - [id number]#1.00TIFFNoKing's Daughters Medical Center OhioCreatinine [Mass/volume] in UrineOrdered By: Hood Zacarias on 47-99-7351Geimlpbroa (U) [Mass/Vol]23.0 mg/dL14.0-26.0[facility] Medical CenterProtein [Mass/volume] in UrineOrdered By: Hood Zacarias on 03-08-5861Mrhpxej (U) [Mass/Vol]40 mg/dL0-9[facility] Activated partial thromboplastin time (aPTT) in platelet poor plasma by coagulation aOrdered By: Jason Mercado on 66-66-5598qJVO Coag (PPP) [Time]31.1 s 25.1-36.5FCherrington HospitalComment on above:A hematocrit value greater than 55% may lead to inaccurate results in coagulation testing. Patients having hematocrit values >55% require a special collection tube for coagulation studies. Please contact the laboratory at [phone] for redraw instructions. Automated erythrocytes count in urine sediment (number/area)Ordered By: Jason Mercado on 99-14-0019UDO Auto (Urine sed) [#/Area]Innumerable [HPF]0-4FCherrington HospitalAutomated leukocytes count in urine sediment (number/area)Ordered By: Jason Mercado on 75-11-8047PGN Auto (Urine sed) [#/Area] 1-2 [HPF]0-4FCherrington HospitalBacterial blood cultureOrdered By: Jason Mercado on 48-37-1517Jyxrdjps identified Cx Nom (Bld)NO GROWTH 5 DAYS [facility] Medical CenterBacteria identified Cx Nom (Bld)NO GROWTH 5 DAYSUniversity Hospitals Geauga Medical CenterBacteria identified Cx Nom (Bld)NO GROWTH 5 DAYSUniversity Hospitals Geauga Medical CenterBacteria identified Cx Nom (Bld)NO GROWTH 5 DAYSUniversity Hospitals Geauga Medical CenterBasophils Auto (Bld) [#/Vol]Ordered By: Jason Mercado on 89-32-6845Brbcjoygg (Bld) [#/Vol]0.1 10*3/uL0.0-0.2FCherrington HospitalBasophils/100 WBC Auto (Bld)Ordered By: Jason Mercado on 50-12-8289Kfohmazzy/100 WBC (Bld)1.0 %.[facility] Bilirubin Test strip Ql (U)Ordered By: Jason Mercado on 06-39-9529Ueteiuibf Ql (U)NegativeNegativeUniversity Hospitals Geauga Medical CenterCOVID CepheidOrdered By: Jason Mercado on 50-86-3468IRNR-CoV-2 (COVID-19) Ab IA QlNegativeNegative [facility] Medical CenterComment on above:This is a duplicate Cepheid Xpert Xpress CoV-2/Flu/RSV Plus RNA by RT-PCR result to be used for statistical tracking purpose only.SARS-CoV-2 (COVID-19) RNA ERIBERTO+probe Ql (Unsp spec) [facility] HospitalARS-CoV-2 (COVID-19) RNA ERIBERTO+probe Ql (Unsp spec)[facility] Medical CenterCalcium [Mass/volume] in Serum or Plasma Ordered By: Jason Mercado on 44-85-3600Reunthp [Mass/Vol]8.7 mg/dL8.6-10.3 [facility] Medical CenterCarbon dioxide, total [Moles/volume] in Serum or PlasmaOrdered By: Jason Mercado on 89-75-4705MJ7 [Moles/Vol]28.2 mmol/L 21.0-31.0[facility] Medical CenterChloride [Moles/volume] in Serum or PlasmaOrdered By: Jason Mercado on 17-53-4846Ihdozowx [Moles/Vol]102 mmol/L98-107 [facility] CenterColor Auto (U)Ordered By: Jason Mercado on 66-28-4024Ujgwi (U)YellowYellowUniversity Hospitals Geauga Medical CenterCreatine kinase [Enzymatic activity/volume] in Serum or PlasmaOrdered By: Jason Mercado on 78-39-3757FB [Catalytic activity/Vol]60 U/A83-769UygwpekosUniversity Hospitals Geauga Medical CenterCreatinine [Mass/volume] in Serum or PlasmaOrdered By: Jason Mercado on 26-08-9974Dyntqrnszg [Mass/Vol]1.86 mg/dL0.70-1.30[facility] Medical CenterEosinophils Auto (Bld) [#/Vol]Ordered By: Jason Mercado on 10-06-2023 Eosinophils (Bld) [#/Vol]0.2 10*3/uL0.0-0.45[facility] Eosinophils/100 WBC Auto (Bld)Ordered By: Jason Mercado on 10-06-2023 Eosinophils/100 WBC (Bld)3.0 %.[facility] Medical CenterErythrocyte distribution width Auto (RBC) [Ratio]Ordered By: Jason Mercado on 10-06-2023 Erythrocyte distribution width (RBC) [Ratio]18.3 %12.0-14.8[facility] Medical CenterGlucose [Mass/volume] in Serum or PlasmaOrdered By: Jason Mercado on 25-88-0543Eunxojx [Mass/Vol]243 mg/bA18-666XotcisyhnUniversity Hospitals Geauga Medical Center Comment on above:ADA recommended reference rangeRandom Glucose Reference Range is dependent on time and content of last meal. Glucose of more than 200 mg/dL in a nonstressed, ambulatory subject supports the diagnosisof Diabetes Mellitus. Hematocrit Auto (Bld) [Volume fraction]Ordered By: Jason Mercado on 10-06-2023 Hematocrit (Bld) [Volume fraction]40.5 %38.8-50.0[facility] Medical CenterHemoglobin [Mass/volume] in BloodOrdered By: Jason Mercado on 10-06-2023 Hemoglobin (Bld) [Mass/Vol]12.9 g/dL13.0-17.0[facility] INR in Platelet poor plasma by Coagulation assayOrdered By: Jason Mercado on 18-87-5688VVS Coag (PPP) [Relative time]1.0 {INR}[facility] Medical CenterComment on above:INR Therapeutic Range A) Pre- and Peroperative OAT started two weeks before surgery. NOT HIP SURGERY: 1.5 - 2.5 HIP SURGERY: 2 - 3B) Primary and secondary prevention of venous THROMBOSIS: 2 - 3C) Active venous thrombosis, pulmonary embolismand prevention of recurrent venous thrombosis: 2 - 3D) Prevention of arterial thromboembolismincluding patients with mechanical heart valves: 3 - 4.5Ketones Auto test strip (U) [Mass/Vol]Ordered By: Jason Mercado on 81-32-2604Gyybsxr (U) [Mass/Vol]NegativeNegativeUniversity Hospitals Geauga Medical CenterLaboratory - Chemistry and Chemistry - challengeOrdered By: Jason Mercado on 21-20-4219KE2 [Moles/Vol]30.8 mmol/L24.0-29.0[facility] Medical CenterHCO3 (Bld) [Moles/Vol]28.8 mmol/L23.0-29.0[facility] CenterLaboratory - UrinalysisOrdered By: Jason Mercado on 10-06-2023 Hyaline casts LM Ql (Urine sed)0-8 [LPF]0-8[facility] Lactate [Moles/volume] in Serum or PlasmaOrdered By: Jason Mercado on 10-06-2023 Lactate [Moles/Vol]0.7 mmol/L0.5-2.2FCherrington HospitalLeukocytes [#/volume] corrected for nucleated erythrocytes in Blood by Automated coun Ordered By: Jason Mercado on 04-31-6186TCZ corrected for nucl RBC Auto (Bld) [#/Vol]7.0 10*3/uL4.1-10.5FCherrington HospitalLymphocytes Auto (Bld) [#/Vol]Ordered By: Jason Mercado on 39-57-7862Hpyitgqgwxn (Bld) [#/Vol]0.8 10*3/uL1.00-4.8[facility] Medical CenterLymphocytes/100 WBC Auto (Bld) Ordered By: Jason Mercaod on 02-81-8875Pjnpvsmjkeg/100 WBC (Bld)11.2 %.[facility] Medical CenterMCH Auto (RBC) [Entitic mass]Ordered By: Jason Mercado on 44-49-2942UWQ (RBC) [Entitic mass]27.3 pg27.5-35.2FCherrington HospitalMCHC Auto (RBC) [Mass/Vol]Ordered By: Jasno Mercado on 40-84-7283BNZE (RBC) [Mass/Vol]31.9 g/dL32.5-35.6FCherrington HospitalMCV Auto (RBC) [Entitic vol]Ordered By: Jason Mercado on 42-08-7114EJW (RBC) [Entitic vol]85.6 fL83.5-101[facility] CenterMonocyte distribution width [Entitic volume] in Blood by AutomatedOrdered By: Jason Mercado on 16-58-7345Wvgudyqp distribution width Auto (Bld) [Entitic vol]17.40 %0.00-20.00[facility] CenterMonocytes Auto (Bld) [#/Vol]Ordered By: Jason Mercado on 10-06-2023 Monocytes (Bld) [#/Vol]0.7 10*3/uL0.0-0.8[facility] Monocytes/100 WBC Auto (Bld)Ordered By: Jason Mercado on 84-88-1560Nxrlgyaca/100 WBC (Bld)10.0 %.[facility] Medical CenterNatriuretic peptide B [Mass/Vol]Ordered By: Jason Mercado on 54-64-9761Pfdqbthhlly peptide B (Bld) [Mass/Vol]131.0 pg/mL5-100[facility] Medical CenterNeutrophils Auto (Bld) [#/Vol]Ordered By: Jason Mercado on 39-11-8630Jganrsxokne (Bld) [#/Vol]5.2 10*3/uL1.8-7.7FCherrington HospitalNeutrophils/100 WBC Auto (Bld) Ordered By: Jason Mercado on 50-84-6339Sfsibgxzsif/100 WBC (Bld)74.8 %.[facility] Medical CenterNitrite Test strip Ql (U)Ordered By: Jason Mercado on 70-55-8461Izawqvn Ql (U)NegativeNegativeUniversity Hospitals Geauga Medical CenterNo Panel InformationOrdered By: Jason Mercado on 89-01-8286Teuje Gas Critical Value See commentUniversity Hospitals Geauga Medical CenterComment on above:Critical Value called on: 10/06/2023 at 21:16Blood Gas Liter Kifi2DzqeaaejnUniversity Hospitals Geauga Medical CenterBlood Gas Sample SiteVenSalem City HospitalFiO245% % [facility] Medical CenterOxygen Delivery DeviceNasal cannulaUniversity Hospitals Geauga Medical CenterVenous Blood Base Excess0.4 mmol/L-3.0-3.0[facility] Medical CenterVenous Blood Oxygen Stjeoezquy68.5 %73.0-76.0[facility] Medical CenterVenous Blood Partial Pressure CO263.9 mm[Hg]38.0-50.0 [facility] Medical CenterVenous Blood pH7.277.32-7.43[facility] CenterEstimated GFR (CKD-EPI)39.912 mL/MinUniversity Hospitals Geauga Medical CenterPharmacy Creatinine Clearance (Chem57.52[facility] Nucleated erythrocytes [Presence] in Blood by Automated countOrdered By: Jason Mercado on 18-34-2962Uasfwhgkh RBC Auto Ql (Bld)0.1 /100{WBC}0-0.5FCherrington HospitalPlatelet mean volume Auto (Bld) [Entitic vol]Ordered By: Jason Mercado on 18-10-7376Cabfbtzm mean volume (Bld) [Entitic vol]6.8 fL6.6-10.1 [facility] Medical CenterPlatelets Auto (Bld) [#/Vol]Ordered By: Jason Mercado on 50-65-0404Anxgkrgzo (Bld) [#/Vol]236 10*3/oS942-783YnryevijmUniversity Hospitals Geauga Medical CenterPotassium [Moles/volume] in Serum or PlasmaOrdered By: Jason Mercado on 05-01-6392Utkdqequg [Moles/Vol]5.6 mmol/L3.5-5.1FCherrington HospitalProtein Auto test strip (U) [Mass/Vol]Ordered By: Jason Mercado on 56-51-9737Xigjxhg (U) [Mass/Vol]100 mg/dLNegativeUniversity Hospitals Geauga Medical CenterProthrombin time (PT)Ordered By: Jason Mercado on 52-66-9827LW Coag (PPP) [Time]11.4 s9.0-12.9[facility] Medical CenterComment on above:A hematocrit value greater than 55% may lead to inaccurate results in coagulation testing. Patientshaving hematocrit values >55% require a special collection tube for coagulation studies. Please contact the laboratory at [phone] for redraw instructions.RBC Auto (Bld) [#/Vol]Ordered By: Jason Mercado on 10-06-2023 RBC (Bld) [#/Vol]4.73 10*6/uL3.90-5.60[facility]ittman Hospitalerum or plasma anion gap determinationOrdered By: Jaosn Mercado on 76-55-6311Mvksk gap [Moles/Vol]10.4 mmol/L6.0-15.0W[facility]ittman Hospitalodium [Moles/volume] in Serum or PlasmaOrdered By: Jason Mercado on 55-06-0418Mwnbnj [Moles/Vol]135 mmol/C111-875DapejbalqWadsworth-Rittman Hospitalpecific gravity Auto test strip (U) [Rel density]Ordered By: Jason Mercado on 18-22-4405Vmldwegy gravity (U) [Rel density]1.0131.001-1.030[facility] Squamous epithelial cells detection in urine sediment by light microscopyOrdered By: Jason Mercado on 37-65-9486Ekqjdzfktz cells.squamous LM Ql (Urine sed)0-1 [HPF]0-2FCherrington HospitalTroponin I.cardiac [Mass/volume] in Serum or Plasma by Detection limit <= 0.01 ng/Ordered By: Jason Mercado on 79-54-9770Goozqinw I.cardiac DL <= 0.01 ng/mL [Mass/Vol]8.2 pg/mL0.0-20.0 [facility] Medical CenterUrea nitrogen [Mass/volume] in Serum or Plasma Ordered By: Jason Mercado on 16-20-8543Spkz nitrogen [Mass/Vol]53 mg/dL7-25 [facility] Medical CenterUrine bacteria detection by automated method Ordered By: Jason Mercado on 84-31-7093Cbtenhon Auto Ql (U)None seenNone Seen [facility] Medical CenterUrine clarity by refractometry automatedOrdered By: Jason Mercado on 64-42-8416Hrgssza Refractometry automated (U)ClearClear [facility] CenterUrine glucose measurement by automated test strip (mass/volume)Ordered By: Jason Mercado on 41-17-8679Vkdkbfz Auto test strip (U) [Mass/Vol]100 mg/dLNormalUniversity Hospitals Geauga Medical CenterUrine hemoglobin detection by automated test stripOrdered By: Jason Mercado on 10-06-2023 Hemoglobin Auto test strip Ql (U)3+NegativeUniversity Hospitals Geauga Medical Center Urine leukocyte esterase detection by automated test stripOrdered By: Jason Mercado on 94-10-7837Rcyspzlgo esterase Auto test strip Ql (U)NegativeNegative [facility] Medical CenterUrobilinogen Auto test strip (U) [Mass/Vol] Ordered By: Jason Mercado on 69-15-0220Scvclqhzkpwq (U) [Mass/Vol]Normal mg/dL NormalUniversity Hospitals Geauga Medical CenterWBC Auto (Bld) [#/Vol]Ordered By: Jason Mercado on 25-06-1294ZEK (Bld) [#/Vol]7.0 10*3/uL4.1-10.5FCherrington HospitalpH Auto test strip (U)Ordered By: Jason Mercado on 90-15-4558fZ (U) 5.0 [pH]5.0-9.0[facility] Medical CenterAmbulatory Visit Summaryon 57-82-8622Vqsojappxj Visit QmnzbtjHuz[address], [address] [place] [id number]- \.br\ 2023 9:00 AM EDT \.br\ With:\.br\ Where: [facility]\.br\ Monday 1:15 PM EDT \.br\ With:\.br\ Where: [facility]\.br\ Medications\.br\ What How Much When Why Instructions\.br\ Unchanged albuterol (Albuterol (Eqv-ProAir HFA) 90 mcg/ inh inhalation aerosol) 2 Puffs Inhalation Every 6 hours as needed for Wheezing\.br\ Unchanged albuterol (albuterol0.083% Inh Harriet 3 mL) 3 Milliliter Inhalation Every 4 hours as needed for Shortness of breath or wheezing\.br\ Unchanged albuterol (Ventolin HFA 90 mcg/ inh Aerosol) 2 Puffs Inhalation Every 4 hours as needed for Shortness of breath or wheezing\.br\ Unchanged atorvastatin (atorvastatin 40 mg Tab) 1 Tablets By Mouth Once a day (in the morning)\.br\ Unchanged budesonide-formoterol (Symbicort 160/ 4.5 inhalation aerosol with adapter) 2 Puffs Inhalation 2 times a day Asthma\.br\ Unchanged duloxetine(duloxetine 60 mg oral delayed release capsule) 1 [...] 150 units a day \.br\ Unchanged insulin gla rgine (Toujeo Max SoloStar 300 units/ mL subcutaneous solution) 40 Units Subcutaneous 2 times a day\.br\ Unchanged insulin glargine (Toujeo SoloStar) 50 Units Subcutaneous At bedtime\.br\ Unchanged linagliptin-metFORMIN (Jentadueto 2.5 mg-1000 mg oral tablet) 1 Tablets By Mouth 2 times a day\.br\ Unchanged Misc Prescription (Freestyle Sage 2 [place]) See instructions Use daily with sensor \.br\ Unchanged Misc Prescription (Freestyle Sage 2 Sensors) See instructions Apply one q 14 days \.br\ Unchanged Misc Prescription (Glucometer test strips) See instructions Test TID DX E11.40 on insulin \.br\ Unchanged Misc Prescription (Glucometer) See instructions Diabetes mellitus with neuropathy Dispense 1 Glucometer \.br\ Unchanged Misc Prescription (Insulin Pen [place] 31g x 8 mm) See instructions Use [...] GERD (gastroesophageal reflux disease)\.br\ GERD - Gastro-esophageal refluxdisease\.br\ Hyperlipidemia\.br\ Hypertension\.br\ Long-term insulin use\.br\ Low back pain\.br\ 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 mellitus\.br\ Morbid obesity\.br\ Onychomycosis\.br\ TC (obstructive sleep apnea)\.br\ PVD (pulmonary valve disease)\.br\ Respiratory acidosis\.br\ Restless leg syndrome\.br\ T2DM (type 2 diabetes mellitus)\.br\ Type 2 diabetes mellitus\.br\ Type 2 diabetes mellitus with hyperglycemia\.br\Type 2 diabetes mellitus with hyperlipidemia\.br\ Type 2 diabetes mellitus with morbid obesity\.br\Type 2 diabetes mellitus with stage 3 chronic kidney disease\.br\ Urinary retention\.br\ Varicose veins of lower extremity\.br\ Historical - Any problem that you are no longer receiving treatment for.\.br\ Major depressive disorder, severe\.br\ MRSA\.br\ Patient Survey\.br\ You may receive a surveyvia text or e- mail asking about your office visit. Please share your experience with us by completing your survey. We appreciate your feedback and thank you for choosing us for your care.\.br\ [ImageRemoved]\.br\[facility] HospitalConsent for Procedure/Surgeryon 52-86-0324Tvtprmy for Procedure/Surgery [id number]#1.00TIFFNormHenry County HospitalConsent for Treatmenton 93-51-2325Yhnjcjf for Treatment [id number]#1.00TIFFNormalCommunity Memorial HospitalHBOon [id number]#1.00TIFF NormalCommunity Memorial HospitalMulti-Wound Charton 02-36-2763Ifurj-Wound Chart [id number]#1.00TIFFNormalAtrium Health Pinevillehudson Johns Hopkins HospitalNursing Assessment - [place]oundon 66-93-8770Fabcflp Assessment - Wound [id number]#1.00CALIFORNIAAllisonKing's Daughters Medical Center OhioNursing Note - [place] 06-07-3293Rawkxmd Note - Wound [id number]#1.00CALIFORNIAAllisonKing's Daughters Medical Center OhioPhysician Orderon 25-28-7425Azzsqkiib Order [id number]#1.00[facility] HospitalPhysician [id number]#2.00CALIFORNIABoris Community Memorial HospitalProcedure - [place]oundon 36-97-5109Bdzffzdsz - Wound [id number]#1.00CALIFORNIAAllisonKing's Daughters Medical Center OhioProgress Note - [place] 19-23-1813Tsvjctwy Note - Wound [id number]#2.00CALIFORNIAAllisonSelect Medical Cleveland Clinic Rehabilitation Hospital, Beachwoodcreenson 18-60-1942Rgkidfm [id number]#1.00[facility] Community HospitalCHEMISTRYOrdered By: Yahaira Limon on 51-37-2577Yevtuxo [Mass/Vol]224 mg/dL High55 - 99 mg/dLDUNCAN [facility]IONAL [facility] [place] POC SubsectionPOC Device [id number] 1Invalid Interpretation CodeDUNCAN REGIONAL [facility] [place] POC SubsectionPOC User [id number] 1Invalid Interpretation CodeDUNCAN REGIONAL [facility] [place] POC SubsectionPOC UsernamSylvia Ernandezvalid Interpretation CodeDUNCAN REGIONAL [facility]OSP[facility] [place] POC SubsectionCapillary Glucose POCon 69-75-3229Meclhxi [Mass/Vol]224 mg/jLQanx36-25QzvtsoCommunity Memorial HospitalComment on above: Performed By: #### [id number] ####[facility] [address] [place], [place] [address]Zpkgncc Educationon 11-38-7739Orlcgjm Education [facility] CampusPre-Certification Formon 06-26-4085Edx- Certification [id number]#1.00[facility] Community HospitalUrology Office/Clinic Noteon 99-47-0533Kltjgxa Office/Clinic NoteWayne HealthCare Main CampusComment on above:Result Comment: Electronically Signed By: BRYAN Bahena APRN, Gisselle Glasgow\.br\Date and Time Signed: 10/02/23 07:51 ESTConsent for Procedure/Surgeryon 18-89-7619Ykffcsc for Procedure/[id number]#1.00TIFKettering HealthCorrespondence - Woundon 31-93-0075Rnqkfdmnsoizle - Wound [id number]#1.00TIFKettering HealthCorrespondence - [id number]#1.00TIFF [facility] CampusCoding Queryon 77-86-9668Sqdlvo Query [id number]#1.00TIFKettering HealthInsurance Correspondenceon 37-82-5045Lestukivv Correspondence [id number]#1.00TIFKettering HealthC Urineon 99-66-3463Kkykmfhz identified Cx Nom (U)[facility] CampusComment on above:Performed By: #### [id number], [id number] ####[facility] [address] [place], [place] [address]Ccjcwcaui Correspondenceon 38-19-0578Xpudstbyr Correspondence [id number]#1.00TIFFNormalCommunity Memorial HospitalBMPon 23-32-7431Khfic gap [Moles/Vol]11 mmol/LNormal6-16Community Memorial HospitalComment on above:Performed By: #### [id number], 4571061, 7949335 ####[facility] [address] [place] [address] BUN/Creat Ratio29 No CgxdnIrxe58-06XpndefCommunity Memorial HospitalComment on above: Performed By: #### [id number], 4035164, 3714099 ####[place] [address] [place], [place] [address]Fozapiw [Mass/Vol]8.7 mg/dLLow 8.9-11.1FUniversity Hospitals Portage Medical CenterComment on above:Performed By: #### [id number], 1964816, 7504035 ####[address] [address]Oavzbnhz [Moles/Vol]103 mmol/RWrphuv170-238HfpnhgCommunity Memorial HospitalComment on above:Performed By: #### [id number], 2915344, 4018127 ####[address] [address]DD8 [Moles/Vol]28 mmol/VHsikor71-05AbhcehCommunity Memorial HospitalComment on above: Performed By: #### [id number], 9936762, 3609163 ####[address] [place], [place] [address]Aulyihuegu [Mass/Vol]1.7 mg/dLHigh 0.5-1.3FUniversity Hospitals Portage Medical CenterComment on above:Performed By: #### 06155742, 4040582, 9034694 ####[address] [place], [place] [address]Xgzmjki [Mass/Vol]280 mg/nJCnot64-056ZolbtgCommunity Memorial HospitalComment on above:Performed By: #### [id number], 8871668, 7225760 ####[address] [address]Deuejjayk [Moles/Vol]4.9 mmol/LNormal3.5-5.3FUniversity Hospitals Portage Medical CenterComment on above: Performed By: #### [id number], 5640625, 7839178 ####[address] [address]Qdwyxa [Moles/Vol]137 mmol/LNormal 135-145Community Memorial HospitalComment on above:Performed By: #### [id number], 4692501, 1148054 ####[address] [address]Zahd nitrogen [Mass/Vol]50 mg/dLHigh5-21Community Memorial HospitalComment on above:Performed By: #### [id number], 7018607, 8276656 ####[address] [address]IKL w/ Auto Diffon 90-74-3335Dmvnvzpl Absolute0.0 E9/LNormal0.0-0.2FUniversity Hospitals Portage Medical CenterComment on above:Performed By: #### [id number], 9153811, 1892021 ####[address] [address]Bgdnlvmyz/100 WBC (Bld)0.5 %Normal0.0-2.0Community Memorial HospitalComment on above:Performed By: #### 05669408, 8314266, 1826380 ####[address] [address]Psy Absolute0.3 E9/LNormal0.0-0.5 Community Memorial HospitalComment on above:Performed By: #### [id number], 5302808, 0618611 ####[address] [address]Ckugtmnhhzl/100 WBC (Bld)4.7 %Normal0.0-8.0Community Memorial HospitalComment on above:Performed By: #### [id number], 2379391, 3264783 ####[address] [address] Erythrocyte distribution width (RBC) [Ratio]17.8 %High10.9-14.2FUniversity Hospitals Portage Medical CenterComment on above:Performed By: #### [id number], 3868376, 2306710 ####[address] [address] Hematocrit (Bld) [Volume fraction]44.0 %Rkhtxv79.7-49.0Community Memorial HospitalComment on above:Performed By: #### [id number], 3454401, 0574969 ####[address] [address]Npscschrle (Bld) [Mass/Vol]13.9 g/vFYykhxv26.5-17.5FUniversity Hospitals Portage Medical CenterComment on above: Performed By: #### [id number], 0738930, 8958587 ####[address] [address]Cxtcm Absolute1.1 E9/LNormal1.0-4.0 [facility] Memorial HospitalComment on above:Performed By: #### [id number], 4080332, 6330228 ####[address] [address]Dkpbfeevfbf/100 WBC (Bld)20.1 %Ykfsnd32.0-50.0Community Memorial HospitalComment on above:Performed By: #### [id number], 7075998, 4220945 ####[address] [address]OVC (RBC) [Entitic mass]27.3 euAxujlo71.0-34.0Community Memorial HospitalComment on above:Performed By: #### [id number], 3376530, 5351590 ####[address] [address]WBGB (RBC) [Mass/Vol]31.9 g/dL Qgkczh30.4-36.0[facility] Memorial HospitalComment on above:Performed By: #### [id number], 0755184, 2362338 ####[address] [address]UBE (RBC) [Entitic vol]85.7 cGUipaee13.0-100.0 [facility] HospitalComment on above:Performed By: #### [id number], 7653617, 1698351 ####[address] [address]Rtmh Absolute0.6 E9/LNormal0.2-1.0[facility] Memorial HospitalComment on above:Performed By: #### 40481329, 3261108, 3282975 ####[address] [address]Yggowyeoa/100 WBC (Bld)11.0 %Normal4.0-14.0[facility] Memorial HospitalComment on above: Performed By: #### 42551348, 9634991, 6383338 ####[address] [address]Tortwt Absolute3.5 E9/LNormal2.0-7.5 [facility] HospitalComment on above:Performed By: #### 93858827, 5064976, 1814786 ####[address] [address]Trhdms Auto63.7 %Vmiunc64.0-75.0[facility] Comment on above:Performed By: #### 39416258, 5977376, 7317695 ####[address] [address]Mpiqgnpo672.0 E9/L Vusnts364.0-500.0[facility] Memorial HospitalComment on above:Performed By: #### 63466712, 1213104, 8264398 ####[address] [address]Yiubvexk mean volume (Bld) [Entitic vol]6.9 fL Normal6.4-10.8[facility] Memorial HospitalComment on above:Performed By: #### 56768570, 3600710, 8396640 ####[facility] [address] [place], [place] [address]MIT5.1 E12/LNormal4.3-5.9[facility] Memorial HospitalComment on above:Performed By: #### 15904401, 5852044, 0303296 ####[facility] [address] [place], [place] [address]TFD5.5 E9/L Normal4.0-11.0[facility] Memorial HospitalComment on above:Performed By: #### 31905884, 7821755, 8772299 ####[facility] [address] [place], [place] [address]UNUUHDDSBAdenjnq By: SYSTEM SYSTEM on 09-24-2023 Anion gap [Moles/Vol]11 mmol/LNormal6 - 16 mEq/LRemisol ChemCalcium [Mass/Vol] 8.7 mg/dLLow8.9 - 11.1 mg/dLRemisol ChemChloride [Moles/Vol]103 mmol/JFnmkiw321 - 111 mmol/LRemisol ChemCO2 [Moles/Vol]28 mmol/CPwakab32 - 31 mmol/LRemisol Chem Creatinine [Mass/Vol]1.7 mg/dLHigh0.5 - 1.3 mg/dLRemisol WimobCUZ28 mL/min/1.73 m2Low>=59mL/min/1.73 r7Bmnsoxb ChemGlucose [Mass/Vol]280 mg/zZIavg93 - 199 mg/dL Remisol ChemPotassium [Moles/Vol]4.9 mmol/LNormal3.5 - 5.3 mmol/LRemisol Chem Sodium [Moles/Vol]137 mmol/WBtzjzy389 - 145 mmol/LRemisol ChemUrea nitrogen [Mass/Vol]50 mg/dLHigh5 - 21 mg/dLRemisol ChemUrea nitrogen/Creatinine [Mass ratio]29 mg/xlBlyo01 - 20Remisol ChemConsent for Treatmenton 67-16-0555Kjwzrkk for [id number]#1.00TIFKettering HealthDischarge Instructionson 98-88-8516Qlzbcnihj Instructions [id number]#1.00TIFFostoria City Hospital Clinical Summaryon 89-36-5874UO Clinical SummaryNormBellevue Hospital CenterED Note-Physicianon 72-53-6129KQ Note-PhysicianWayne HealthCare Main CampusComment on above:Result Comment: Electronically Signed By: Jose Miguel Phan DO\.br\Date and Time Signed: 09/24/23 21:39 ESTED Patient Education Noteon 88-25-7369ZO Patient Education NoteNormVan [facility]ert [facility] Patient Summaryon 53-49-6707LJ Patient SummaryNoKing's Daughters Medical Center OhioHEMATOLOGYOrdered By: SYSTEM SYSTEM on 05-83-6547Pmxojtqm Absolute 0.0 E9/LNormal0.0 - 0.2 E9/LRemisol HemeBasophils/100 WBC (Bld)0.5 %Normal0.0 - 2.0 %Remisol HemeEos Absolute0.3 E9/LNormal0.0 - 0.5 E9/LRemisol Heme Eosinophils/100 WBC (Bld)4.7 %Normal0.0 - 8.0 %Remisol HemeErythrocyte distribution width (RBC) [Ratio]17.8 %High10.9 - 14.2 %Remisol HemeHematocrit (Bld) [Volume fraction]44.0 %Kqxcoo38.7 - 49.0 %Remisol HemeHemoglobin (Bld) [Mass/Vol]13.9 g/lXZteeuh29.5 - 17.5 gm/dLRemisol HemeLymph Absolute1.1 E9/L Normal1.0 - 4.0 E9/LRemisol HemeLymphocytes/100 WBC (Bld)20.1 %Bbwcor25.0 - 50.0 %Remisol HemeMCH (RBC) [Entitic mass]27.3 hbVdrios83.0 - 34.0 pgRemisol Heme MCHC (RBC) [Mass/Vol]31.9 g/fUCzfkjv30.4 - 36.0 gm/dLRemisol HemeMCV (RBC) [Entitic vol]85.7 sAGwcnxw61.0 - 100.0 fLRemisol HemeMono Absolute0.6 E9/LNormal 0.2 - 1.0 E9/LRemisol HemeMonocytes/100 WBC (Bld)11.0 %Normal4.0 - 14.0 %Remisol HemeNeutro Absolute3.5 E9/LNormal2.0 - 7.5 E9/LRemisol HemeNeutro Auto63.7 % Dzsmsm55.0 - 75.0 %Remisol OyhxZbmgeiwd620.0 E9/ZBvfxlu519.0 - 500.0 E9/LRemisol HemePlatelet mean volume (Bld) [Entitic vol]6.9 fLNormal6.4 - 10.8 fLRemisol HemeRBC5.1 E12/LNormal4.3 - 5.9 E12/LRemisol HemeWBC5.5 E9/LNormal4.0 - 11.0 E9/LRemisol HemeUA With Cult Reflexon 99-29-2041Omyphziswijv Qn (U)0.2 {Itz'U}/dLNormal0.0-1.0[facility] Memorial HospitalComment on above:Performed By: #### [id number], 43746623 ####[address] [place], [place] [address]Fcsjfvet LM Ql (Urine sed)TRACENormalTraceCommunity Memorial HospitalComment on above:Performed By: #### 3378576, 36477411 ####[facility] [address] [place] [address] Bilirubin Ql (U)1+AbnormalNegativeCommunity Memorial HospitalComment on above: Performed By: #### 4135427, 67785933 ####[facility] [address] [place], [place] [address]Eomrvcy (U)CLOUDYAbnormalClearFUniversity Hospitals Portage Medical CenterComment on above:Performed By: #### 7831819, 81181478 ####[facility] [address] [address]Gakoa (U)REDAbnormalYellowCommunity Memorial HospitalComment on above:Performed By: #### 6785573, 39266107 ####[address] [address]Eneldqlabx cells.squamous LM.HPF (Urine sed) [#/Area]3-4 Normal0-2Fisher Johns Hopkins HospitalComment on above:Performed By: #### 5797635, 79763986 ####[address] [address]Fayajvq Test strip (U) [Mass/Vol]2+AbnormalNegativeCommunity Memorial HospitalComment on above:Performed By: #### 2543270, 72346206 ####[address] [address]Fgzppsfspq Ql (U)3+ AbnormalNegativeCommunity Memorial HospitalComment on above:Performed By: #### 7243928, 00713517 ####[address] [address]Ocbevzq (U) [Mass/Vol]NegativeNormalNegativeCommunity Memorial HospitalComment on above:Performed By: #### 1006683, 37119766 ####[address] [address] Enlow.plasma/Enlow.RBC (Bld) [Mass ratio]>25Owmjbprs1-6FfgopeUniversity Hospitals Portage Medical CenterComment on above:Performed By: #### 9724639, 43635478 ####[address] [address]Puaoofx Ql (U)Positive AbnormalNegativeCommunity Memorial HospitalComment on above:Performed By: #### 8766806, 81279108 ####[address] [address]mO (U)5.5 [pH]Invalid Interpretation Code5.0-9.0[facility] Memorial HospitalComment on above:Performed By: #### 7301648, 66234373 ####[facility] [address] [place], [place] [address]Aelaavd (U) [Mass/Vol]3+AbnormalNegativeCommunity Memorial HospitalComment on above: Performed By: #### 8520694, 91766830 ####[address] [address]Wclaodgo gravity (U) [Rel density] 1.025Invalid Interpretation Code1.005-1.030[facility] Memorial HospitalComment on above:Performed By: #### 5758474, 32390925 ####[address] [address]Czti of Urine collection method CatheterNormalCommunity Memorial HospitalComment on above:Performed By: #### 5400289, 83369903 ####[address] [address]IGP Auto Ql (U)NegativeNormalNegTwin City HospitalComment on above:Performed By: #### 2959577, 14867602 ####[address] [address]PPA LM.HPF (Urine sed) [#/Area]4-6Jzxfqo3-5QogzspUniversity Hospitals Portage Medical CenterComment on above:Performed By: #### 5609398, 70189455 ####[address] [address]PNRPADJLNWNbsmhvp By: Liberty Quinn on 62-66-2444Lmazxbbj LM Ql (Urine sed)Trace /HPFNormalTrace/HPFFT UA Auto SSBilirubin Ql (U)1+ *ABN* (09/24/23 8:26 PM)Invalid Interpretation CodeNegativeDUNCAN REGION[facility] [place] UA Auto SSClarity (U) Cloudy *ABN* (09/24/23 8:26 PM)Invalid Interpretation CodeClearFTMC UA Auto SSColor (U)Red *ABN* (09/24/23 8:26 PM)Invalid Interpretation CodeYellowDUNCAN REGIONAL HOSP[facility] [place] UA Auto SSEpithelial cells.squamous LM.HPF (Urine sed) [#/Area]3-4 /HPFNormal0-2/HPFDUNCAN REGIONAL HOSPITAL [facility] [place] UA Auto SS Glucose Test strip (U) [Mass/Vol]2+ *ABN* (09/24/23 8:26 PM)Invalid Interpretation CodeNegativeDUNCAN [facility]ION[facility] [place] UA Auto SSHemoglobin Ql (U)3+ *ABN* (09/24/23 8:26 PM)Invalid Interpretation CodeNegativeDUNCAN REGIONAL [facility] [place] UA Auto SSKetones (U) [Mass/Vol]Negative (09/24/23 8:26 PM)NormalNegativeDUNCAN REGIONAL [facility] [place] UA Auto SSLithium.plasma/Enlow.RBC (Bld) [Mass ratio]>75 /HPFInvalid Interpretation Code0-3/HPFDUNCAN REGIONAL HOSPITAL [facility] [place] UA Auto SSNitrite Ql (U)Positive *ABN* (09/24/23 8:26 PM)Invalid Interpretation CodeNegativeDUNCAN REGION[facility] [place] UA Auto SSpH (U)5.5 *NA* (09/24/23 8:26 PM)Invalid Interpretation Code5.0 - 9.0D[facility] [place] UA Auto SSProtein (U) [Mass/Vol]3+ *ABN* (09/24/23 8:26 PM)Invalid Interpretation CodeNegativeDUNCAN REGIONAL [facility] [place] UA Auto SSSpecific gravity (U) [Rel density]1.025 *NA* (09/24/23 8:26 PM)Invalid Interpretation Code1.005 - 1.030[facility] [place] UA Auto SSUA Spec DescCatheter (09/24/23 8:26 PM)NormalDUNCAN REGIONAL HOSPITAL [facility] [place] UA Auto SSUrobilinogen Qn (U)0.6570098 {Itz'U}/dL Normal0.0 - 1.0 EU/dLDUNCAN REGIONAL HOSPITAL [facility] [place] UA Auto SSWBC Auto Ql (U)Negative (09/24/23 8:26 PM)NormalNegativeDUNCAN [facility]ION[facility] [place] UA Auto SSWBC LM.HPF (Urine sed) [#/Area]0-5 /HPFNormal0-5/HPFDUNCAN REGIONAL HOSPITAL – [place] UA Auto SSeGFRon 97-31-9271qRWA41 mL/min/1.73 m2Low>=59 [facility] HospitalComment on above:Order Comment: Order added by Discern Expert.Performed By: #### [id number], 9505092, 8329005 ####[facility] [address] [place], [place] [address]Vgchobqxj Correspondence Officeon 02-39-3480Crjuzfbrq Correspondence Office [id number]#1.00[facility] HospitalC Blood Charcoalon 14-79-3384Ydbcy Culture CharcoalWayne HealthCare Main CampusComment on above:Performed By: #### [id number] ####[facility] [address] [place], [place] [address]Nlbivqvtw Instructions on 29-76-7302Noavljahr Instructions [id number]#1.00TIFKettering HealthConsent for Procedure/Surgeryon 66-28-1471Bwwunng for Procedure/Surgery [id number]#1.00[facility] HospitalConsent for Treatmenton 62-46-5677Zzjenig for Treatment [id number]#1.00[facility] HospitalDischarge Instructionson 86-03-0878Wujyiuxqa Instructions [id number]#1.00[facility] Clinical Summaryon 64-19-8872UO Clinical SummaryNoOhioHealth Southeastern Medical Center CenterED Note-Physicianon 66-17-7138JU Note-PhysicianWayne HealthCare Main CampusComment on above:Result Comment: Electronically Signed By: Shira Snider, Alejandro Esteves\.br\Date and Time Signed: 09/17/2418:00 ESTED Patient Education Noteon 88-10-3392JH Patient Education NoteNoOhioHealth Southeastern Medical Center CenterED Patient Summaryon 30-90-9486VO Patient SummaryNoKing's Daughters [facility] Center [place] BMPon 64-59-6188Utpwh gap [Moles/Vol]10 mmol/LNormal6-16[facility] Memorial HospitalComment on above:Performed By: #### 4277395, 53468650, 8993004, 6997122 ####[facility] [address] [place] [address] BUN/Creat Ratio24 No JbncwTrre31-01HbrypqCommunity Memorial HospitalComment on above: Performed By: #### 3592717, 88564069, 7528515, 2820768 ####[facility] [address] [place], [place] [address]Luixzvm [Mass/Vol]8.2 mg/dLLow 8.9-11.1FUniversity Hospitals Portage Medical CenterComment on above:Performed By: #### 7618996, 32009190, 9269567, 8381498 ####[facility] [address] [place], [place] [address]Jbzporwo [Moles/Vol]97 mmol/LEqs754-901BrslxzCommunity Memorial HospitalComment on above:Performed By: #### 8666598, 12439898, 4757861, 7514454 ####[address] [address]UJ3 [Moles/Vol]33 mmol/SQlfe52-60OjhtsvCommunity Memorial HospitalComment on above:Performed By: #### 0564287, 58659367, 8230311, 0471132 ####[facility] [address] [place], [place] [address]Gktgbflezb [Mass/Vol] 1.6 mg/dLHigh0.5-1.3FUniversity Hospitals Portage Medical CenterComment on above:Performed By: #### 6543080, 93090106, 6526899, 2547300 ####[facility] [address] [place], [place] [address]Imkopog [Mass/Vol]191 mg/dLNormal 55-199Community Memorial HospitalComment on above:Performed By: #### 1699262, 18014445, 7288967, 3013522 ####[facility] [address] [place], [place] [address]Ioviejdku [Moles/Vol]4.0 mmol/LNormal3.5-5.3FUniversity Hospitals Portage Medical CenterComment on above:Performed By: #### 1075580, 34084842, 8164197, 8230887 ####[address] [address]Lahseo [Moles/Vol]136 mmol/TLyboxc634-414ZiszsnCommunity Memorial HospitalComment on above:Performed By: #### 1927525, 66785129, 1679976, 6405162 ####[address] [address]Eaug nitrogen [Mass/Vol]38 mg/dLHigh5-21Community Memorial HospitalComment on above:Performed By: #### 4279996, 69853998, 4833117, 8023147 ####[address] [address]ZMP w/ Auto Diffon 03-00-5037Yiporilf Absolute0.0 E9/LNormal0.0-0.2FUniversity Hospitals Portage Medical Center Comment on above:Performed By: #### 6999524, 34536023, 2946027, 2207461 ####[address] [address] Basophils/100 WBC (Bld)0.7 %Normal0.0-2.0[facility] Memorial HospitalComment on above:Performed By: #### 4635414, 60699610, 9798302, 5563510 ####[address] [address]Six Absolute0.4 E9/L Normal0.0-0.5FUniversity Hospitals Portage Medical CenterComment on above:Performed By: #### 8348936, 23793837, 4978611, 2146291 ####[address] [address]Tgblfiblcpx/100 WBC (Bld)6.9 %Normal 0.0-8.0[facility] Memorial HospitalComment on above:Performed By: #### 8303921, 87931629, 9624518, 8279407 ####[address], [place] [address]Fozrsiijtjw distribution width (RBC) [Ratio]17.4 % High10.9-14.2FUniversity Hospitals Portage Medical CenterComment on above:Performed By: #### 7570864, 40793962, 0748128, 4739251 ####[address] [address]Grcatnzjma (Bld) [Volume fraction] 44.0 %Hmfmcz89.7-49.0[facility] HospitalComment on above:Performed By: #### 8268320, 28417993, 6757281, 7901921 ####[address] [address]Dllvvisupl (Bld) [Mass/Vol]13.8 g/dL Zsdaps91.5-17.5FUniversity Hospitals Portage Medical CenterComment on above:Performed By: #### 1159182, 40400642, 6521858, 1163046 ####[address] [address]Aayhq Absolute1.4 E9/LNormal1.0-4.0 [facility] HospitalComment on above:Performed By: #### 8691585, 76324878, 1741676, 3193250 ####[address] [address]Zrjkibtdokh/100 WBC (Bld)21.5 %Rbvuys53.0-50.0 [facility] HospitalComment on above:Performed By: #### 9912841, 03545294, 2101490, 0702007 ####[facility] [address] [place] [address]SAT (RBC) [Entitic mass]27.0 ceRlsaui90.0-34.0 [facility] HospitalComment on above:Performed By: #### 9219313, 23677456, 0429660, 6022309 ####[facility] [address] [place] [address]PHVI (RBC) [Mass/Vol]31.3 g/dLLow31.4-36.0[facility] HospitalComment on above:Performed By: #### 1970657, 71674076, 3888814, 4816690 ####[address] [address]SLB (RBC) [Entitic vol]86.3 wWNyqabk55.0-100.0[facility] HospitalComment on above:Performed By: #### 8460169, 80954838, 0137477, 1472097 ####[address] [address]Wgnm Absolute0.8 E9/LNormal0.2-1.0[facility] HospitalComment on above:Performed By: #### 6888805, 45187291, 2583999, 0612134 ####[address] [address]Ulpcknpgh/100 WBC (Bld)13.0 %Normal4.0-14.0[facility] HospitalComment on above:Performed By: #### 0897148, 80606034, 0378135, 5237872 ####[address] [address]Msugbo Absolute3.8 E9/LNormal2.0-7.5 [facility] HospitalComment on above:Performed By: #### 5683314, 67479586, 0788312, 5695434 ####[address] [address]Pnkhvr Auto57.9 %Cjqcqa97.0-75.0[facility] HospitalComment on above:Performed By: #### 9800887, 60225070, 3661261, 0921545 ####[address] [address]Ulldghsl003.0 E9/TYtsgqu104.0-500.0[facility] HospitalComment on above:Performed By: #### 5027008, 15901006, 9549313, 9604042 ####[address] [place], [place] [address]Auvgpzfu mean volume (Bld) [Entitic vol]7.0 fLNormal6.4-10.8[facility] HospitalComment on above:Performed By: #### 0604628, 10463109, 2097570, 0148733 ####[address] [place], [place] [address]FPY6.1 E12/LNormal 4.3-5.9[facility] HospitalComment on above:Performed By: #### 8807919, 51627612, 6312421, 5966844 ####[address] [address]WJU9.5 E9/LNormal4.0-11.0[facility] HospitalComment on above:Performed By: #### 8135289, 31707185, 7441661, 6116831 ####[address] [address] Capillary Glucose POCon 11-62-3186Enshqyi [Mass/Vol]198 mg/hHTabk60-85SpwkkwCommunity Memorial HospitalComment on above:Result Comment: Notified RN/KENROYerformed By: #### [id number] ####[address] [address]Qrzngthcc Clinical Summaryon 43-09-6883Eccpjeyqp Clinical SummaryNoKing's Daughters Medical Center OhioInpatient Patient Summaryon 09-16-2023 Inpatient Patient SummaryNoKing's Daughters Medical Center OhioInpatient Patient SummaryNoKing's Daughters Medical Center OhioInterdisciplinary Note - Case Manageron 21-04-8124Owgdpfvwfgpatmkxx Note - Case ManagerPatient DC before CRM rounded in room todayNoKing's Daughters Medical Center OhioComment on above:Result Comment: Electronically Signed By: Jodee Giang\.br\Date and Time Signed: 09/16/23 11:26 ESTMagnesiumon 24-87-4451Urjndrpaf [Mass/Vol]1.9 mg/dLNormal1.3-2.4FUniversity Hospitals Portage Medical CenterComment on above:Performed By: #### 7690958, 52736110, 8482229, 5765771 ####[facility] [address] [place], [place] [address]Urefavx Recordon 63-99-3304Voigboe Record [id number]#1.00TIFFNormalCommunity Memorial HospitalMonitor [id number]#1.00TIFFNormal Community [facility] HospitalMonitor Record [id number]#1.00TIFNoKing's Daughters Medical Center OhioeGFRon 91-32-3054iHRR53 mL/min/1.73 m2Low>=59[facility] Comment on above:Order Comment: Order added by Discern Expert.Performed By: #### 8363971, 01546325, 1685611, 1431919 ####[address] [place], [place] [address]MZLxf 72-50-7317Etqfy gap [Moles/Vol] 8 mmol/LNormal6-16[facility] HospitalComment on above:Performed By: #### 7452925, 9016860, 23566168 ####[address] [address]HPB/Creat Ratio25 No SzfhtFguh47-28ElnrirCommunity Memorial HospitalComment on above:Performed By: #### 9673889, 9934825, 53208395 ####[facility] [address] [place] [address] Calcium [Mass/Vol]8.4 mg/dLLow8.9-11.1FUniversity Hospitals Portage Medical CenterComment on above:Performed By: #### 1419592, 7531904, 95212596 ####[facility] [address] [place], [place] [address]Xqexhvnp [Moles/Vol]94 mmol/L Avw936-823UzrkzuCommunity Memorial HospitalComment on above:Performed By: #### 4917968, 6992185, 92493620 ####[address] [address]DZ9 [Moles/Vol]38 mmol/PBvie97-12UjghstCommunity Memorial HospitalComment on above:Performed By: #### 4690001, 3809762, 13448407 ####[address] [address] Creatinine [Mass/Vol]1.7 mg/dLHigh0.5-1.3FUniversity Hospitals Portage Medical CenterComment on above:Performed By: #### 6868002, 1504917, 92670782 ####[address] [address]Qyxnlfy [Mass/Vol]154 mg/dL Dhjtxp85-733KwsobxCommunity Memorial HospitalComment on above:Performed By: #### 4144853, 4172153, 80831146 ####[address] [address]Aomnebgqx [Moles/Vol]4.1 mmol/LNormal3.5-5.3FUniversity Hospitals Portage Medical CenterComment on above:Performed By: #### 5569478, 6873203, 49563499 ####[address] [address]Iqjyjr [Moles/Vol]136 mmol/QTqfokh589-719XfaixeCommunity Memorial HospitalComment on above:Performed By: #### 4784303, 5584003, 81710081 ####[address] [address]Eqrb nitrogen [Mass/Vol]43 mg/dLHigh5-21[facility] HospitalComment on above:Performed By: #### 6413364, 6979120, 15354798 ####[address] [address]V Woundon 69-91-9220Kxzyo CultureNormalCommunity Memorial HospitalComment on above:Performed By: #### 6831892 ####[address] [place], [place] [address]LIY w/ Auto Diffon 72-98-5534Kgrbzsex Absolute0.0 E9/LNormal0.0-0.2FUniversity Hospitals Portage Medical Center Comment on above:Performed By: #### 9674190 ####[address] [address]Nqnpddnwk/100 WBC (Bld)0.6 %Normal 0.0-2.0[facility] Memorial HospitalComment on above:Performed By: #### 3820713 ####[address] [address]Mqa Absolute0.3 E9/LNormal0.0-0.5FUniversity Hospitals Portage Medical CenterComment on above: Performed By: #### 3546157 ####[address] [address]Celtzzdievn/100 WBC (Bld)5.0 %Normal0.0-8.0[facility] Memorial HospitalComment on above:Performed By: #### 9200650 ####[address] [address]Eidndisizok distribution width (RBC) [Ratio]17.9 %High10.9-14.2FUniversity Hospitals Portage Medical Center Comment on above:Performed By: #### 6776803 ####[address] [address]Pfbyiwfnyb (Bld) [Volume fraction] 45.0 %Bdalcd06.7-49.0[facility] Memorial HospitalComment on above:Performed By: #### 7462965 ####[address] [address]Vfvxxtokpk (Bld) [Mass/Vol]14.3 g/yIOhgdot35.5-17.5FUniversity Hospitals Portage Medical CenterComment on above:Performed By: #### 5946719 ####[address] [address]Qumdv Absolute1.3 E9/LNormal 1.0-4.0[facility] HospitalComment on above:Performed By: #### 9171430 ####[address] [address] Lymphocytes/100 WBC (Bld)19.3 %Rxtdac68.0-50.0[facility] HospitalComment on above:Performed By: #### 0315833 ####[address] [address]VGN (RBC) [Entitic mass]27.5 pgNormal 27.0-34.0[facility] HospitalComment on above:Performed By: #### 1083456 ####[address] [address]FFWK (RBC) [Mass/Vol]31.6 g/fWVcrwfv34.4-36.0[facility] HospitalComment on above:Performed By: #### 3509416 ####[address] [address]FEE (RBC) [Entitic vol]87.1 sGGvvfgh27.0-100.0 [facility] HospitalComment on above:Performed By: #### 7692942 ####[address] [address]Wfff Absolute0.7 E9/LNormal0.2-1.0[facility] HospitalComment on above: Performed By: #### 9287673 ####[address] [address]Ddpvgkkvm/100 WBC (Bld)10.9 %Normal4.0-14.0[facility] HospitalComment on above:Performed By: #### 2177383 ####[address] [address]Klarso Absolute4.2 E9/LNormal2.0-7.5FUniversity Hospitals Portage Medical CenterComment on above:Performed By: #### 0552930 ####[address], [place] [address]Decjqk Auto64.2 %Wmylou47.0-75.0[facility] HospitalComment on above:Performed By: #### 6368885 ####[address] [address]Ypjrlgsr627.0 E9/FXcmszg956.0-500.0[facility] HospitalComment on above:Performed By: #### 9641431 ####[address] [address]Ccfsqxsr mean volume (Bld) [Entitic vol]7.0 fLNormal6.4-10.8[facility] HospitalComment on above:Performed By: #### 4514973 ####[address] [address]JUH7.2 E12/LNormal4.3-5.9[facility] HospitalComment on above:Performed By: #### 9737899 ####[address] [address]NPW8.6 E9/LNormal4.0-11.0 [facility] HospitalComment on above:Performed By: #### 3031492 ####[address] [address] Capillary Glucose POCon 11-21-4795Soiabel [Mass/Vol]230 mg/nXZbuw47-77UxuztcCommunity Memorial HospitalComment on above:Performed By: #### [id number] ####[address] [address]Vzbunxd [Mass/Vol]187 mg/iHXbix71-58GasjcjCommunity Memorial HospitalComment on above:Result Comment: Notified RN/MDPerformed By: #### [id number] ####[address] [address]Udzysap [Mass/Vol]281 mg/dL Qwsl98-85RufqxxCommunity Memorial HospitalComment on above:Result Comment: Notified RN/MDPerformed By: #### [id number] ####[facility] [address] [place], [place] [address]Dkhicto [Mass/Vol]298 mg/pCOhmg51-30BzfosiCommunity Memorial HospitalComment on above:Result Comment: Notified RN/MDPerformed By: #### [id number] ####[facility] [address] [place], [place] [address]Gnfbynw [Mass/Vol]167 mg/gZZdkf73-60JhvuslCommunity Memorial HospitalComment on above:Result Comment: Notified RN/MDPerformed By: #### [id number] ####[facility] [address] [place] [address] Interdisciplinary Note - Case Manageron 46-45-4719Mjxepnqfwiymiysfn Note - Case ManagerNoKing's Daughters Medical Center OhioComment on above:Result Comment: Electronically Signed By: Sasha Garcia\.br\Date and Time Signed: 09/15/23 15:52 ESTMagnesiumon 81-41-6210Bmdnstezx [Mass/Vol]1.7 mg/dLNormal1.3-2.4FUniversity Hospitals Portage Medical CenterComment on above:Performed By: #### [id number], 0381477, 76918662 ####[facility] [address] [place] [address]Fdijvfnt Note-Physicianon 24-81-5974Tubcbbrx Note-PhysicianWayne HealthCare Main CampusComment on above:Result Comment: Electronically Signed By: Ida LYMAN, Tonya Raghavendra\.br\Date and Time Signed: 09/15/23 16:08 ESTProgress Note-PhysicianWayne HealthCare Main CampusComment on above:Result Comment: Electronically Signed By: Jose LYMAN, Kayla\.br\Date and Time Signed: 09/15/23 10:03 ESTeGFRon 56-89-8371dHSK64 mL/min/1.73 m2Low>=59Community [facility] HospitalComment on above:Order Comment: Order added by Discern Expert.Performed By: #### [id number], 8871879, 45287029 ####[facility] [address] [place], [place] [address]GXDvh 64-33-9064Lopdg gap [Moles/Vol] 13 mmol/LNormal6-16[facility] Memorial HospitalComment on above:Performed By: #### 5846225, 46366559 ####[facility] [address] [place], [place] [address]QSK/Creat Ratio24 No ZjixfRuba32-26FbkzlmCommunity Memorial HospitalComment on above:Performed By: #### 3808157, 76462918 ####[address] [address]Wtasaya [Mass/Vol]8.6 mg/dLLow8.9-11.1FUniversity Hospitals Portage Medical CenterComment on above:Performed By: #### 6748176, 88059220 ####[address] [address]Eokovypk [Moles/Vol]94 mmol/PRnw905-765EwqoqrCommunity Memorial HospitalComment on above:Performed By: #### 1141443, 45128690 ####[address] [address]UF6 [Moles/Vol]33 mmol/FZnxd98-21NazevvCommunity Memorial HospitalComment on above:Performed By: #### 3004957, 86962895 ####[address] [address]Bztnbayhce [Mass/Vol]1.9 mg/dLHigh0.5-1.3FUniversity Hospitals Portage Medical CenterComment on above:Performed By: #### 6302171, 56144806 ####[address] [address]Whxhxqc [Mass/Vol]215 mg/vMYbsy42-490ZgfangCommunity Memorial HospitalComment on above: Performed By: #### 2468355, 51974519 ####[address] [address]Kdfmmywfo [Moles/Vol]4.3 mmol/LNormal 3.5-5.3FUniversity Hospitals Portage Medical CenterComment on above:Performed By: #### 3881320, 84419898 ####[address] [address]Otzntl [Moles/Vol]136 mmol/APjkyxs200-435AtnpebCommunity Memorial HospitalComment on above:Performed By: #### 8286123, 43930239 ####[address] [address]Ztyi nitrogen [Mass/Vol]46 mg/dLHigh 5-21[facility] Memorial HospitalComment on above:Performed By: #### 4856486, 94433468 ####[address] [address]Qnimt gap [Moles/Vol]9 mmol/LNormal6-16[facility] Memorial HospitalComment on above:Performed By: #### 94917050, 7026824 ####[address] [address]STK/Creat Ratio26 No AciptSfrc39-35 [facility] HospitalComment on above:Performed By: #### 68719639, 1693088 ####[address] [address] Calcium [Mass/Vol]8.7 mg/dLLow8.9-11.1FUniversity Hospitals Portage Medical CenterComment on above:Performed By: #### 73091610, 7854768 ####[address] [address]Izthygay [Moles/Vol]96 mmol/LLow 101-111Community Memorial HospitalComment on above:Performed By: #### 96663867, 6537340 ####[address] [address]NE7 [Moles/Vol]35 mmol/NBcpw08-45SwdbibCommunity Memorial HospitalComment on above:Performed By: #### 59047475, 5173791 ####[address], [place] [address]Acaarfumtf [Mass/Vol]1.8 mg/dLHigh 0.5-1.3FUniversity Hospitals Portage Medical CenterComment on above:Performed By: #### 01289120, 5052329 ####[facility] [address] [place], [place] [address]Vrohsox [Mass/Vol]226 mg/mQBvhq22-524QquafqCommunity Memorial HospitalComment on above:Performed By: #### 59025916, 5951672 ####[facility] Atrdwehygx[address] [place], [place] [address]Chglmrnqe [Moles/Vol]4.4 mmol/LNormal 3.5-5.3FUniversity Hospitals Portage Medical CenterComment on above:Performed By: #### 91611238, 0670696 ####[address] [address]Obfvwn [Moles/Vol]136 mmol/GXydpnl652-587NzhshkCommunity Memorial HospitalComment on above:Performed By: #### 95377515, 8081499 ####[address] [address]Eckv nitrogen [Mass/Vol]46 mg/dLHigh 5-21[facility] Memorial HospitalComment on above:Performed By: #### 95866236, 7023224 ####[address] [address]Mdhdi gap [Moles/Vol]8 mmol/LNormal6-16[facility] Memorial HospitalComment on above:Performed By: #### 3840912, 6221272, 4899940, 76290623 ####[address] [address]ADN/Creat Ratio25 No CtmccHyco16-76OgadmgCommunity Memorial HospitalComment on above:Performed By: #### 1900210, 9772502, 9115078, 73990511 ####[facility] Qofdyxsiho[address] [place], [place] [address]Vffwxse [Mass/Vol]8.3 mg/dLLow 8.9-11.1FUniversity Hospitals Portage Medical CenterComment on above:Performed By: #### 0664999, 9127239, 6038970, 13227415 ####[address] [address]Cjvazamk [Moles/Vol]97 mmol/ATyk390-087AttkpyCommunity Memorial HospitalComment on above:Performed By: #### 0324423, 2352064, 1007105, 12213304 ####[address] [address]UN3 [Moles/Vol]36 mmol/MNxte02-79JjpfnqCommunity Memorial HospitalComment on above:Performed By: #### 5856774, 9111102, 7431632, 61633982 ####[address] [address]Entdohvgem [Mass/Vol] 1.9 mg/dLHigh0.5-1.3FUniversity Hospitals Portage Medical CenterComment on above:Performed By: #### 5174762, 7623663, 9153510, 38823305 ####[address] [address]Keoihmv [Mass/Vol]172 mg/dLNormal 55-199Community Memorial HospitalComment on above:Performed By: #### 1468236, 5409708, 0682750, 65070460 ####[address] [address]Ebmruvuyi [Moles/Vol]4.5 mmol/LNormal3.5-5.3FUniversity Hospitals Portage Medical CenterComment on above:Performed By: #### 2496722, 3654226, 1813943, 58874445 ####[address] [address]Hjfkiu [Moles/Vol]136 mmol/NEixnmp073-620GgucwkCommunity Memorial HospitalComment on above:Performed By: #### 4193434, 0027558, 5617181, 65863813 ####[address] [place], [place] [address]Qgfm nitrogen [Mass/Vol]47 mg/dLHigh5-21[facility] Memorial HospitalComment on above:Performed By: #### 5235831, 0659429, 0000211, 50234560 ####[facility] Xiummdkdsv[address]N[place], [place] [address]Zzamn gap [Moles/Vol] 10 mmol/LNormal6-16Community Memorial HospitalComment on above:Performed By: #### 45249278, 5544312 ####[facility] Ntmyjobnib[address] [place], [place] [address]ULM/Creat Ratio25 No YkxbxBqcj24-08BvzfdwCommunity Memorial HospitalComment on above:Performed By: #### 42149661, 6373932 ####[facility] [address] [place] [address]Gaxmhov [Mass/Vol]8.3 mg/dLLow8.9-11.1FUniversity Hospitals Portage Medical CenterComment on above:Performed By: #### 63160374, 2962469 ####[facility] [address]eb[address]hk[address] [place], [place] [address]Zqolxvoq [Moles/Vol]96 mmol/BWhu226-815QvunvfCommunity Memorial HospitalComment on above:Performed By: #### 85260275, 4294090 ####[facility] Pbfpgyrrgz[address] [place], [place] [address]TL5 [Moles/Vol]35 mmol/FQsyy54-14RlnvdfCommunity Memorial HospitalComment on above:Performed By: #### 18401748, 5452879 ####[facility] [address] [place], [place] [address]Gkebyigepn [Mass/Vol]1.9 mg/dLHigh0.5-1.3FUniversity Hospitals Portage Medical CenterComment on above:Performed By: #### 57223455, 2279996 ####[facility] Zfqcgyffhr[address]NFrank[place], [place] [address]Tqzxoti [Mass/Vol]284 mg/dQNhdt82-488SsqeltCommunity Memorial HospitalComment on above: Performed By: #### 28593518, 4698557 ####[address] [address]Yyuzalypq [Moles/Vol]4.6 mmol/LNormal 3.5-5.3FUniversity Hospitals Portage Medical CenterComment on above:Performed By: #### 91894043, 2294839 ####[address] [address]Aiggjt [Moles/Vol]136 mmol/HLdaepk276-443PvrkltCommunity Memorial HospitalComment on above:Performed By: #### 75656217, 4037259 ####[address] [address]Uzge nitrogen [Mass/Vol]48 mg/dLHigh 5-21[facility] HospitalComment on above:Performed By: #### 42967479, 4024503 ####[address] [address]HGM w/ Auto Diffon 94-99-0968Dygcfbod Absolute0.1 E9/LNormal0.0-0.2FUniversity Hospitals Portage Medical CenterComment on above:Performed By: #### 8636319, 8574118, 7082753, 82197678 ####[address] [address]Gmpqhzldi/100 WBC (Bld)1.0 %Normal0.0-2.0Community Memorial HospitalComment on above:Performed By: #### 9523517, 8566155, 8392371, 46213695 ####[address] [address]Uyn Absolute0.2 E9/LNormal0.0-0.5FUniversity Hospitals Portage Medical CenterComment on above:Performed By: #### 1187311, 7814599, 7483638, 78990289 ####[address] [address]Ybdexiumdwc/100 WBC (Bld)3.1 %Normal0.0-8.0Community Memorial HospitalComment on above:Performed By: #### 4916106, 6382778, 9384827, 75053084 ####[address] [address]Anmollbwpii distribution width (RBC) [Ratio]18.1 %High10.9-14.2FUniversity Hospitals Portage Medical CenterComment on above:Performed By: #### 3201331, 3357466, 6614082, 00067936 ####[address] [address]Nqdlzxkeeb (Bld) [Volume fraction] 42.0 %Dharue87.7-49.0Community Memorial HospitalComment on above:Performed By: #### 7378643, 8354265, 9832171, 18015885 ####[address] [address]Zuyoysmrzn (Bld) [Mass/Vol]13.3 g/dL Low13.5-17.5FUniversity Hospitals Portage Medical CenterComment on above:Performed By: #### 4023443, 6940798, 6566901, 25418146 ####[address] [address]Nqssx Absolute1.9 E9/LNormal1.0-4.0 [facility] HospitalComment on above:Performed By: #### 5375864, 0493681, 6518249, 10826835 ####[address] [address]Ryfqvusfbnh/100 WBC (Bld)23.5 %Sqzfix48.0-50.0Community Memorial HospitalComment on above:Performed By: #### 1733182, 7402308, 6015225, 18981484 ####[address] [place], [place] [address]SMD (RBC) [Entitic mass]27.8 mvFscrlb70.0-34.0[facility] Comment on above:Performed By: #### 8072049, 2098461, 1130512, 16551966 ####[address] [address]NXLW (RBC) [Mass/Vol]31.7 g/lIWqkcyb30.4-36.0[facility] Memorial HospitalComment on above:Performed By: #### 8102559, 7368808, 4725882, 28063288 ####[address] [address]QSP (RBC) [Entitic vol]87.6 lLKqyzgt63.0-100.0[facility] Memorial HospitalComment on above:Performed By: #### 9841655, 4344473, 8319339, 61219851 ####[address] [address]Svas Absolute0.8 E9/LNormal0.2-1.0 [facility] HospitalComment on above:Performed By: #### 3863257, 9280251, 5174326, 44738735 ####[address] [address]Xqzsrhtuj/100 WBC (Bld)10.0 %Normal4.0-14.0[facility] Memorial HospitalComment on above:Performed By: #### 9067332, 7368214, 6407743, 38779331 ####[address] [address]Vdfava Absolute5.0 E9/LNormal2.0-7.5FUniversity Hospitals Portage Medical CenterComment on above:Performed By: #### 8853264, 7342313, 9559038, 87966775 ####[address] [address]Gcyszf Auto62.4 % Txsynz01.0-75.0[facility] Memorial HospitalComment on above:Performed By: #### 8951512, 2473150, 8337029, 79848198 ####[address] [address]Djpedkne575.0 E9/PLkorin119.0-500.0 [facility] HospitalComment on above:Performed By: #### 4071004, 1307210, 0446777, 58287969 ####[facility] [address] [place], [place] [address]Tnbdtwxi mean volume (Bld) [Entitic vol]6.8 fLNormal6.4-10.8 [facility] HospitalComment on above:Performed By: #### 3726802, 1236436, 0006684, 30501202 ####[address] [place], [place] [address]GKX8.8 E12/LNormal4.3-5.9Community Memorial HospitalComment on above:Performed By: #### 6705641, 1871988, 4912108, 32527220 ####[address] [address]VEJ3.9 E9/LNormal 4.0-11.0Community Memorial HospitalComment on above:Performed By: #### 5283650, 9997511, 9184950, 03250291 ####[address] [address]JX Abdomen/Pelvis w/o Contraston 69-77-1874PQ Abdomen/Pelvis w/o ContrastNormalCommunity Memorial HospitalCapillary Glucose POCon 47-54-9078Dvpbxar [Mass/Vol]294 mg/pJQcfe54-67Fjnkgs[address] Comment on above:Result Comment: Notified RN/MDPerformed By: #### [id number] ####[address] [place] [address] Glucose [Mass/Vol]244 mg/mNJzon80-88Juowwc47 [address]onaldson StreetComment on above: Result Comment: Notified RN/MDPerformed By: #### [id number] ####[facility] [address]fr[address] [place], [place] [address]Yyijyug [Mass/Vol]284 mg/qGJrhk58-86Lscj[address] CenterComment on above:Result Comment: Notified RN/KENROYerformed By: #### [id number] ####[facility] [address] [facility] [place], [place] [address]Ggmfckj [Mass/Vol]164 mg/vCQepq10-67 [facility] HospitalComment on above:Result Comment: Notified RN/MD Performed By: #### [id number] ####[facility] [address] [place], [place] [address]Wjcmvoonfhobzhdra Note - Case Manageron 09-14-2023 Interdisciplinary Note - Case ManagerNormHenry County HospitalComment on above:Result Comment: Electronically Signed By: Jodee Giang\.br\Date and Time Signed: 09/14/23 10:25 ESTInterdisciplinary Note - OTon 09-14-2023 Interdisciplinary Note - [facility]. Patient requires assist w/ all transfers and adls when compared to baseline. Pt does live home alone. Inpatient OT services to follow daily to progress as tolerates w/ functional skills.NormalCommunity Memorial HospitalMagnesiumon 09-14-2023 Magnesium [Mass/Vol]1.8 mg/dLNormal1.3-2.4FUniversity Hospitals Portage Medical CenterComment on above:Performed By: #### 0014928, 5072304, 3593120, 98099284 ####[facility] [address] [place], [place] [address]Bejytbz from Medicare on 76-50-3015Opbzjey from Medicare [id number]#1.00TIFFNormalCommunity Memorial HospitalMonitor Recordon 13-61-2389Lldilsm Record [id number]#1.00TIFFNormalCommunity Memorial HospitalMonitor [id number]#1.00TIFFNormal [facility] HospitalProgress Note-Physicianon 58-22-0233Bxicubyp Note-[facility] HospitalComment on above:Result Comment: Electronically Signed By: Sasha Stevens NP\.br\Date and Time Signed: 09/14/23 15:54 EST\.br\Electronically Co-Signed By: Flakita Morgan MD\.br\Date and Time Co-Signed: 09/14/2419:02 ESTProgress Note-[facility] HospitalComment on above:Result Comment: Electronically Signed By: Shaquille Alex Jr., PA-C\.br\Date and Time Signed: 09/14/23 19:56 ESTProgress Note-[facility] HospitalComment on above:Result Comment: Electronically Signed By: Rowdy LYMAN, Unruly Laurent\.br\Date and Time Signed: 09/14/23 19:53 ESTProgress Note-[facility] Comment on above:Result Comment: Electronically Signed By: Kayla Garcia MD\.br\Date and Time Signed: 09/14/23 12:47 ESTeGFRon 07-30-5309kBOG23 mL/min/1.73 m2Low>=59[facility] HospitalComment on above:Order Comment: Order added by Discern Expert.Performed By: #### 1912351, 17191647 ####[facility] [address], [place] [address]eWZI67 mL/min/1.73 m2Low>=59[facility] Memorial HospitalComment on above:Order Comment: Order added by Discern Expert.Performed By: #### 68165939, 7700767 ####[facility] T[address]fa[address]Nor[place], [place] [address]kGNI88 mL/min/1.73 m2Low>=59[facility] HospitalComment on above:Order Comment: Order added by Discern Expert.Performed By: #### 1550900, 0272375, 2557458, 42788818 ####[facility] [address]mk[address], [place] [address]lRRM65 mL/min/1.73 m2Low>=59Fisher Ramone Medical CenterComment on above: Order Comment: Order added by Discern Expert.Performed By: #### 92679049, 8204727 ####[address] [place], [place] [address]ONUvh 98-74-1227Ognpc gap [Moles/Vol]9 mmol/LNormal6-16[facility] HospitalComment on above:Performed By: #### 8096511, 40471132 ####[address] [address]CBY/Creat Ratio26 No SgjsiHavx12-32KkpfyrCommunity Memorial HospitalComment on above:Performed By: #### 8000842, 15751996 ####[address] [place], [place] [address]Tcwapyt [Mass/Vol]8.5 mg/dLLow8.9-11.1FUniversity Hospitals Portage Medical CenterComment on above:Performed By: #### 3922391, 92306693 ####[address] [address]Tpcxttbv [Moles/Vol]96 mmol/QFxd891-781GdpedhCommunity Memorial HospitalComment on above:Performed By: #### 5701872, 23813194 ####[address] [address]PZ4 [Moles/Vol]34 mmol/SYnvu59-80PchxrlCommunity Memorial Hospital Comment on above:Performed By: #### 8505399, 42962966 ####[address] [place], [place] [address]Nezymtwgfc [Mass/Vol]2.0 mg/dL High0.5-1.3FUniversity Hospitals Portage Medical CenterComment on above:Performed By: #### 1630847, 69570633 ####[address] [place], [place] [address]Auikbua [Mass/Vol]340 mg/qKKoud24-064VwaomnCommunity Memorial HospitalComment on above:Performed By: #### 8208173, 07886971 ####[facility] [address] [place], [place] [address]Wsruzkzyt [Moles/Vol] 5.0 mmol/LNormal3.5-5.3FUniversity Hospitals Portage Medical CenterComment on above:Performed By: #### 9756112, 81790912 ####[address] [address]Llqdqz [Moles/Vol]134 mmol/WXxw884-645KzocyyCommunity Memorial HospitalComment on above:Performed By: #### 1776908, 42285598 ####[address] [address]Jkbh nitrogen [Mass/Vol]51 mg/dLHigh5-21[facility] HospitalComment on above:Performed By: #### 3563259, 71131729 ####[address] [address]Dfvcp gap [Moles/Vol]10 mmol/LNormal6-16[facility] HospitalComment on above:Performed By: #### 14756815, 4051750 ####[address] [address] BUN/Creat Ratio26 No WfnfxIsda38-96WuotlfCommunity Memorial HospitalComment on above: Performed By: #### 46296653, 6004095 ####[address] [address]Apbfgxc [Mass/Vol]8.6 mg/dLLow 8.9-11.1FUniversity Hospitals Portage Medical CenterComment on above:Performed By: #### 43794041, 3583044 ####[address] [address]Ylvovxnr [Moles/Vol]100 mmol/TSwh481-472XqzvqpCommunity Memorial HospitalComment on above:Performed By: #### 33241284, 0320428 ####[address] [address]EV8 [Moles/Vol]33 mmol/SNnic07-82 [facility] HospitalComment on above:Performed By: #### 35228775, 3934068 ####[address] [address] Creatinine [Mass/Vol]2.0 mg/dLHigh0.5-1.3FUniversity Hospitals Portage Medical CenterComment on above:Performed By: #### 21886660, 0375485 ####[address] [address]Dfyygag [Mass/Vol]239 mg/xYTrgp97-306 [facility] HospitalComment on above:Performed By: #### 13888816, 0852671 ####[address] [address] Potassium [Moles/Vol]5.0 mmol/LNormal3.5-5.3FUniversity Hospitals Portage Medical CenterComment on above:Performed By: #### 41908013, 1973950 ####[address] [address]Myalhf [Moles/Vol]138 mmol/LNormal 135-145Community Memorial HospitalComment on above:Performed By: #### 64420683, 4739357 ####[address] [address]Ocmz nitrogen [Mass/Vol]51 mg/dLHigh5-21[facility] HospitalComment on above:Performed By: #### 11720811, 8405897 ####[address] [address]Uesdv gap [Moles/Vol]10 mmol/LNormal 6-16[facility] HospitalComment on above:Performed By: #### 13145488, 1347709 ####[address] [address]HPW/Creat Ratio26 No FaozfFhfa86-48SzcpjaCommunity Memorial HospitalComment on above:Performed By: #### 06170957, 2392589 ####[address], [place] [address]Nmfftxd [Mass/Vol]8.7 mg/dLLow 8.9-11.1FUniversity Hospitals Portage Medical CenterComment on above:Performed By: #### 06106383, 0106689 ####[facility] [address] AveNcharlotte [facility], [place] [address]Kxxsamtq [Moles/Vol]101 mmol/MHeizqj072-354HlzbpoCommunity Memorial Hospital Comment on above:Performed By: #### 47359559, 1047505 ####[facility] [address] [facility], [place] [address]JU5 [Moles/Vol]33 mmol/LHigh 21-31Community Memorial HospitalComment on above:Performed By: #### 89746655, 1104753 ####[address] [facility], [place] [address]Xtqduspqnr [Mass/Vol]2.0 mg/dLHigh0.5-1.3FUniversity Hospitals Portage Medical CenterComment on above:Performed By: #### 70306461, 3296105 ####[facility] [address] [facility], [place] [address]Gyiwiph [Mass/Vol]149 mg/dLNormal 55-199Community Memorial HospitalComment on above:Performed By: #### 35063465, 3620328 ####[facility] [address] [place], [place] [address]Hdkvrtwmb [Moles/Vol]4.9 mmol/LNormal3.5-5.3FUniversity Hospitals Portage Medical Center Comment on above:Performed By: #### 94348081, 3106969 ####[facility] [address] [place], [place] [address]Vonvnc [Moles/Vol]139 mmol/L Wjjyuh878-326DllvqcCommunity Memorial HospitalComment on above:Performed By: #### 75772880, 1524734 ####[facility] [address] [place], [place] [address]Wgyi nitrogen [Mass/Vol]51 mg/dLHigh5-21[facility] HospitalComment on above:Performed By: #### 77422392, 7479495 ####[facility] [address] [place], [place] [address]Lsacy gap [Moles/Vol] 11 mmol/LNormal6-16[facility] Memorial HospitalComment on above:Performed By: #### 2590105, 57972492 ####[facility] [address] [place], [place] [address]JDX/Creat Ratio26 No YzwhoBgnz18-57YjiqmxCommunity Memorial HospitalComment on above:Performed By: #### 6426862, 09623792 ####[address] [place], [place] [address]Yeiefdu [Mass/Vol]8.6 mg/dLLow8.9-11.1FUniversity Hospitals Portage Medical CenterComment on above:Performed By: #### 0770485, 55800259 ####[address] [address]Mavwdwab [Moles/Vol]103 mmol/XJmxbig405-150HnpqlsCommunity Memorial HospitalComment on above:Performed By: #### 6623856, 73557860 ####[address] [address]TY6 [Moles/Vol] 31 mmol/HWgeigs51-21HlbxpyCommunity Memorial HospitalComment on above:Performed By: #### 1318696, 51212616 ####[address] [address]Guqhsacezk [Mass/Vol]2.1 mg/dLHigh0.5-1.3FUniversity Hospitals Portage Medical CenterComment on above:Performed By: #### 5066112, 44388177 ####[address] [place], [place] [address]Zdqbkqs [Mass/Vol]154 mg/dCDfnlgs11-599GxxhqpCommunity Memorial HospitalComment on above: Performed By: #### 2386613, 47238350 ####[address] [place], [place] [address]Qzdhxfmoh [Moles/Vol]5.2 mmol/LNormal 3.5-5.3FUniversity Hospitals Portage Medical CenterComment on above:Performed By: #### 5290717, 13254967 ####[facility] [address] [place], [place] [address]Zodtlr [Moles/Vol]140 mmol/TZddtuj866-334GhqqlfCommunity Memorial HospitalComment on above:Performed By: #### 7242232, 36080342 ####[facility] [address] [place], [place] [address]Dnvj nitrogen [Mass/Vol]54 mg/dLHigh 5-21[facility] HospitalComment on above:Performed By: #### 3002470, 59842700 ####[facility] [address] [place] [address]Zkhiy gap [Moles/Vol]8 mmol/LNormal6-16[facility] Memorial HospitalComment on above:Performed By: #### 5613174, 4238383, 38307733 ####[address] [address]PUZ/Creat Ratio25 No UnitsHigh 10-20[facility] HospitalComment on above:Performed By: #### 5138556, 5152575, 36930239 ####[address] [address]Whnxcdo [Mass/Vol]8.3 mg/dLLow8.9-11.1FUniversity Hospitals Portage Medical CenterComment on above:Performed By: #### 9165375, 6777976, 56857058 ####[facility] [address] [place], [place] [address]Exdjynmp [Moles/Vol]104 mmol/WAvtnap093-028UxaoufCommunity Memorial HospitalComment on above: Performed By: #### 4384939, 4389684, 71342376 ####[facility] [address] [place] [address]WB0 [Moles/Vol]33 mmol/UBssz77-91 [facility] HospitalComment on above:Performed By: #### 6722929, 9720400, 57551985 ####[address] [address]Qfldubtqma [Mass/Vol]2.2 mg/dLHigh0.5-1.3FUniversity Hospitals Portage Medical CenterComment on above:Performed By: #### 0352658, 6065559, 72619450 ####[address] [address]Lycygqp [Mass/Vol]170 mg/dL Xuymab93-823FsblrnCommunity Memorial HospitalComment on above:Performed By: #### 6356214, 7919768, 30175135 ####[address] [address]Ldddpiicm [Moles/Vol]5.4 mmol/LHigh3.5-5.3FUniversity Hospitals Portage Medical CenterComment on above:Performed By: #### 5061378, 2777716, 25660269 ####[address] [address]Jkyxhy [Moles/Vol]140 mmol/GNccfew455-881LxgtxnCommunity Memorial HospitalComment on above:Performed By: #### 6862395, 3187367, 63888429 ####[address] [address]Bhiz nitrogen [Mass/Vol]55 mg/dLHigh5-21[facility] HospitalComment on above:Performed By: #### 2514778, 8406255, 70401608 ####[address] [address]Oqjdm gap [Moles/Vol]10 mmol/LNormal6-16[facility] Memorial HospitalComment on above:Performed By: #### 9006157, 09871363 ####[address] [address] BUN/Creat Ratio24 No RjzmfJuww91-15CebczkCommunity Memorial HospitalComment on above: Performed By: #### [id number], [id number] ####[facility] [address] [place], [place] [address]Npxerct [Mass/Vol]8.6 mg/dLLow 8.9-11.1FUniversity Hospitals Portage Medical CenterComment on above:Performed By: #### [id number], [id number] ####[address] [place], [place] [address]Fsohpzym [Moles/Vol]105 mmol/CMibffb272-629LuyqpvCommunity Memorial Hospital Comment on above:Performed By: #### [id number], [id number] ####[address] [place], [place] [address]TS3 [Moles/Vol]30 mmol/LNormal 21-31[facility] HospitalComment on above:Performed By: #### [id number], [id number] ####[address] [address]Kbyphxxcqx [Mass/Vol]2.3 mg/dLHigh0.5-1.3FUniversity Hospitals Portage Medical CenterComment on above:Performed By: #### [id number], [id number] ####[address] [address]Wqjdtje [Mass/Vol]208 mg/nXLfza95-885 [facility] HospitalComment on above:Performed By: #### [id number], 75552470 ####[facility] [address] [place] [address] Potassium [Moles/Vol]5.2 mmol/LNormal3.5-5.3FUniversity Hospitals Portage Medical CenterComment on above:Performed By: #### 6896896, [id number] ####[facility] [address] [place], [place] [address]Cjgrvn [Moles/Vol]140 mmol/LNormal 135-145Community Memorial HospitalComment on above:Performed By: #### 4809039, 90608431 ####[facility] [address]fi[address] [place], [place] [address]Ymyl nitrogen [Mass/Vol]54 mg/dLHigh5-21[facility] HospitalComment on above:Performed By: #### [id number], [id number] ####[address] [address]Dfhva Gas Art, with Lytes, Gluc, Lact on 4a/A Ratio Art37.80 %Normal>=0.80[facility] HospitalComment on above:Performed By: #### [id number] ####[address] [address]HxYN1 Gni658.0 mmHgHigh5.0-15.0[facility] HospitalComment on above:Performed By: #### [id number] ####[address] [address]GKB. Rate16 Invalid Interpretation [facility] HospitalComment on above:Performed By: #### [id number] ####[address] [address]Vrugjx TestPositiveNormalCommunity Memorial HospitalComment on above:Performed By: #### [id number] ####[address] [address]Asay Excess Arterial6.3 mmol/LNormal >=2.8[facility] HospitalComment on above:Performed By: #### [id number] ####[address] [address]JaOKU 20/8Invalid Interpretation [facility] HospitalComment on above: Performed By: #### [id number] ####[address] [address]bHt8+ Art4.87 mg/dLNormal4.40-5.30[facility] HospitalComment on above:Performed By: #### [id number] ####[address] [address]mDg- Wfx335.0 mmol/L Otkuoo846.0-111.0[facility] HospitalComment on above:Performed By: #### [id number] ####Rickey [address] [address]oPzj Vre245 mg/fUCftg53-89HkwxinCommunity Memorial HospitalComment on above: Performed By: #### [id number] ####Rickey [address] [address]dI+ Art5.3 mmol/LNormal3.5-5.3FUniversity Hospitals Portage Medical CenterComment on above:Performed By: #### [id number] ####[address] [address]fQpo Art.7 mmol/LNormal.5-2.2 [facility] HospitalComment on above:Performed By: #### [id number] ####Lang [address] [address]qWs+ Tic895.0 mmol/BCeilei555.0-145.0[facility] HospitalComment on above: Performed By: #### [id number] ####[address] [address]Rajvv bytsbInvalid Interpretation CodeCommunity Memorial HospitalComment on above:Performed By: #### [id number] ####[address] [address]FDJLj Art1.1 %Low 1.5-4.9[facility] HospitalComment on above:Result Comment: Reference rangeNonsmoker <1.5%Smoker <5.0%Heavy Smoker <9.0%Performed By: #### [id number] ####Lang [address] [address]JHT9 BG45.0Invalid Interpretation CodeCommunity Memorial HospitalComment on above: Performed By: #### [id number] ####Lang [address] [address]OJakWf Art0.5 %Normal0.0-1.9[facility] HospitalComment on above:Performed By: #### [id number] ####Lang [address] [address]NW9Bv Art95.9 %Normal 93.0-100.0[facility] HospitalComment on above:Performed By: #### [id number] ####[address] [address]ETC4 (Bld) [Moles/Vol]30.1 mmol/LHigh22.0-26.0[facility] Comment on above:Performed By: #### [id number] ####[address] [address]Dalmprlzuu (Bld) [Mass/Vol]14.3 g/dL Kwihzd79.0-17.0[facility] HospitalComment on above:Performed By: #### [id number] ####[address] [address]NJDI. Dcav31Npmbzsj Interpretation [facility] HospitalComment on above:Performed By: #### [id number] ####[address] [address]AC51Guytmnz Interpretation [facility] HospitalComment on above:Performed By: #### [id number] ####[address] [address]Qcnwtk saturation in Blood97.5 %Utpfxg06.0-100.0[facility] HospitalComment on above:Performed By: #### [id number] ####[address] [address]A CO2 Eoqcxtnr37.6 dqKeZnur36.0-45.0[facility] HospitalComment on above:Performed By: #### [id number] ####[address] [address]A O2 Caoylajk25.1 mmHg Yaaajt95.0-100.0[facility] HospitalComment on above:Performed By: #### [id number] ####[address] [address]yF Arterial7.462Cwe4.350-7.450[facility] HospitalComment on above: Performed By: #### [id number] ####[address] [address]Klmzyd SiteR RadialNormalCommunity Memorial HospitalComment on above:Performed By: #### [id number] ####[address] [address]Mblnrw TypeArterial DrawNormal [facility] HospitalComment on above:Performed By: #### [id number] ####[address] [address]UOA w/ Auto Diffon 24-75-8334Wewnkqeo Absolute0.0 E9/LNormal0.0-0.2FUniversity Hospitals Portage Medical CenterComment on above:Performed By: #### 0317092, 4946296, 52545227 ####[address] [address] Basophils/100 WBC (Bld)0.4 %Normal0.0-2.0[facility] HospitalComment on above:Performed By: #### 6724709, 2272667, 09714217 ####[address] [address]Drb Absolute0.0 E9/LNormal 0.0-0.5FUniversity Hospitals Portage Medical CenterComment on above:Performed By: #### 0242882, 0423608, 28314694 ####[address] [address]Wxkndtlrkua/100 WBC (Bld)0.0 %Normal0.0-8.0[facility] HospitalComment on above:Performed By: #### 9987142, 4214368, 92804034 ####[address] [address] Erythrocyte distribution width (RBC) [Ratio]17.6 %High10.9-14.2FUniversity Hospitals Portage Medical CenterComment on above:Performed By: #### 7370911, 9920742, 41788002 ####[address] [address] Hematocrit (Bld) [Volume fraction]43.0 %Wksdzr84.7-49.0[facility] HospitalComment on above:Performed By: #### 4919597, 9827644, 75597841 ####[address] [address]Mdsyajjbrf (Bld) [Mass/Vol]13.6 g/jTSzvdgt06.5-17.5FUniversity Hospitals Portage Medical CenterComment on above: Performed By: #### 6220869, 7456153, 61256297 ####[address] [address]Mdpga Absolute0.7 E9/LLow1.0-4.0 [facility] HospitalComment on above:Performed By: #### 6895423, 2124528, 04780899 ####[address] [address]Lorplhszkdq/100 WBC (Bld)10.8 %Low14.0-50.0[facility] Comment on above:Performed By: #### 2391709, 8044363, 58341333 ####[address] [address]JFB (RBC) [Entitic mass]27.7 ocKovgdm05.0-34.0[facility] HospitalComment on above:Performed By: #### 6792428, 5868416, 29172444 ####[address] [address]HWEB (RBC) [Mass/Vol]31.6 g/dLNormal 31.4-36.0[facility] HospitalComment on above:Performed By: #### 9251285, 3508357, 40266653 ####[address] [address]ROO (RBC) [Entitic vol]87.5 aUHucaiz22.0-100.0[facility] HospitalComment on above:Performed By: #### 8415704, 8612259, 10216938 ####[address] [address]Cpit Absolute0.6 E9/LNormal0.2-1.0[facility] HospitalComment on above: Performed By: #### 2142461, 9296024, 94323937 ####[address] [address]Rqhfkthmq/100 WBC (Bld)9.5 %Normal 4.0-14.0[facility] HospitalComment on above:Performed By: #### 7129636, 5102731, 37898342 ####[address] [address]Yqrsyf Absolute5.0 E9/LNormal2.0-7.5FUniversity Hospitals Portage Medical CenterComment on above:Performed By: #### 9560281, 6296932, 31210744 ####[address] [address]Jpvqwg Auto79.3 %High36.0-75.0[facility] HospitalComment on above:Performed By: #### 2937669, 6883355, 54446174 ####[address] [address]Uuppzvha826.0 E9/RJnkafn169.0-500.0[facility] HospitalComment on above:Performed By: #### 3433618, 3453204, 30919067 ####[address] [address] Platelet mean volume (Bld) [Entitic vol]7.2 fLNormal6.4-10.8[facility] HospitalComment on above:Performed By: #### 7478418, 5232334, 92872962 ####[address] [place], [place] [address]HNU2.9 E12/L Normal4.3-5.9[facility] HospitalComment on above:Performed By: #### 9770398, 1676185, 80748004 ####[address] [address]SXD3.3 E9/LNormal4.0-11.0[facility] HospitalComment on above:Performed By: #### 4552278, 2435629, 08723282 ####[address] [address]Jchoqdfmz Glucose POCon 13-62-8245Ysnapre [Mass/Vol]357 mg/zMFzfr26-64CfvoifCommunity Memorial HospitalComment on above:Result Comment: Notified RN/MDPerformed By: #### [id number] ####[address], [place] [address]Kceestr [Mass/Vol]235 mg/yZYzyg52-32TubkyyCommunity Memorial HospitalComment on above:Result Comment: Notified RN/MDPerformed By: #### [id number] ####[address], [place] [address]Dxyrmjd [Mass/Vol]153 mg/hSIdne00-48XqdpynCommunity Memorial HospitalComment on above:Result Comment: Notified RN/MDPerformed By: #### [id number] ####[facility] [address] [facility], [place] [address]Fkqqthg [Mass/Vol]137 mg/dL Cndp11-48RpqqwlCommunity Memorial HospitalComment on above:Result Comment: Notified RN/MDPerformed By: #### [id number] ####[facility] [address] [facility], [place] [address]Bwsremr [Mass/Vol]157 mg/mQUoml27-77JgsjjxCommunity Memorial HospitalComment on above:Result Comment: Notified RN/MDPerformed By: #### [id number] ####[facility] K[address], [place] [address]Celomen [Mass/Vol]169 mg/gXIyrt71-32AqiiwjCommunity Memorial HospitalComment on above:Result Comment: Notified RN/MDPerformed By: #### [id number] ####[address]Norrye psychiatric hospital centerk, [place] [address]Wfwzpbq [Mass/Vol]166 mg/zCMals81-19NhgofcCommunity Memorial HospitalComment on above:Result Comment: Notified RN/MDPerformed By: #### [id number] ####[address]Norrye [facility] centerk, [place] [address]Davvsxo [Mass/Vol]170 mg/dL Qacm39-75EwlziaCommunity Memorial HospitalComment on above:Result Comment: Notified RN/MDPerformed By: #### [id number] ####[address]N[facility] [facility] hospital centerk, [place] [address]Rdipozn [Mass/Vol]165 mg/eYAzxb61-11FezcwvCommunity Memorial HospitalComment on above:Performed By: #### [id number] ####[address] [place], [place] [address]Vlieadk [Mass/Vol]159 mg/aTNwvf48-68PutivdCommunity Memorial HospitalComment on above:Result Comment: Notified RN/MDPerformed By: #### [id number] ####[facility] [address]Nor[place], [place] [address]Ddynewh [Mass/Vol]178 mg/iDNkkm83-45 [facility] HospitalComment on above:Result Comment: Notified RN/MD Performed By: #### [id number] ####[facility] Ghbkidafib[address]Norwalk, [place] [address]Slwljvw [Mass/Vol]143 mg/fGAzrn64-76XkpckqCommunity Memorial HospitalComment on above:Result Comment: Notified RN/MDPerformed By: #### [id number] ####Lang [facility] [address] [place], [place] [address]Qkpvvwf [Mass/Vol]192 mg/xOAgtq55-15Muazrz47 [address] StreetComment on above:Result Comment: Notified RN/MDPerformed By: #### 820382640 ####[facility] [address] [place] [address]Qarixpc [Mass/Vol]201 mg/jPWwww58-50Opurdh47 [address]onalds[address] StreetComment on above:Result Comment: Notified RN/MDPerformed By: #### [id number] ####[address] [address]Pzimjkj [Mass/Vol]242 mg/dL [address] StreetComment on above:Result Comment: Notified RN/MDPerformed By: #### [id number] ####[address] [address]Xihypy Queryon 96-31-7871Vgfjpg QueryNormHenry County HospitalCoding QueryNoKing's Daughters Medical Center OhioConsultation Noteon 69-34-1032Kljlhrioopdu NoteWayne HealthCare Main CampusComment on above:Result Comment: Electronically Signed By: Rowdy LYMAN, Unruly Laurent\.br\Date and Time Signed: 09/13/23 19:06 ESTConsultation NoteNoKing's Daughters Medical Center OhioComment on above:Result Comment: Electronically Signed By: Flakita Mrogan MD\.br\Date and Time Signed: 09/13/23 10:18 ESTEcho Transthoracic Lmtd w/ Contraston 96-43-4516Gcur Transthoracic Lmtd w/ Contrast NormalCommunity Memorial HospitalHgbA1con 95-73-7362ChI6a (Bld) [Mass fraction] 11.8 %High<=5.9[facility] HospitalComment on above:Order Comment: Order placed by EKM rule. BCC_HGBA1CLABORDER_FTMCPerformed By: #### [id number] ####[address] [place] [address] Insurance Correspondence Officeon 67-10-7691Pqxwhedvp Correspondence Office [id number]#1.00TIFHoraceHenry County HospitalInterdisciplinary Note - Case Manageron 68-52-6878Ezfhcvyrkucmrnucw Note - Case ManagerWayne HealthCare Main CampusComment on above:Result Comment: Electronically Signed By: Jodee Giang\.br\Date and Time Signed: 09/13/23 14:06 ESTInterdisciplinary Note - PTon 82-07-0067Akcwlwwnewhrbpvwy Note - PT [facility] Main CampusMonitor Recordon 33-59-3266Fcbuwuu Record [id number]#1.00TIFFNolloydThe Jewish Hospital [id number]#1.00TIFF[address] [facility] Hospitalitor Record [id number]#1.00TIFFNormKettering Health Prebleitor [id number]#1.00TIFFNormal [facility] Record [id number]#1.00TIFFNolloydHenry County HospitalMonitor [id number]#1.00TIFFNormal [facility] HospitalNursing Note - Woundon 77-95-6946Ymarfua Note - Wound [id number]#2.00TIFFNoKing's Daughters Medical Center OhioProgress Note-Physicianon 18-02-6353Bhxztetj Note-PhysicianWayne HealthCare Main CampusComment on above:Result Comment: Electronically Signed By: Ida LYMAN, Pippa Mabry\.br\Date and Time Signed: 09/13/23 15:56 ESTProgress Note-PhysicianNormalCommunity Memorial HospitalComment on above:Result Comment: Electronically Signed By: Jose LYMAN, Kayla\.br\Date and Time Signed: 09/13/23 11:23 ESTRespiratory Panel by Chi 99-06-7472Vchpzyxolv DNA ERIBERTO+non-probe Ql (Nph)Not detectedNormalCommunity Memorial HospitalComment on above:Result Comment: Testing was performed using nucleic acid amplification including Influenza A, Influenza A H1, Influenza A H3, Influenza B, RSV A, RSV B, Adenovirus, Human Metapneumovirus, Parainfluenza 1,2,3, and 4, Rhinovirus, Bordetella parapertussis/bronchiseptica, Bordetella holmesii, and Bordetella pertussis.Performed By: #### [id number] ####[address] [facility], [id number]. parapertussis DNA ERIBERTO+probe Ql (Upper resp)Not detectedNormalNot DetectedCommunity Memorial HospitalComment on above:Performed By: #### [id number] ####[address] [facility], YG[address]S. pertussis DNA ERIBERTO+probe Ql (Upper resp)Not detectedNormalNot DetectedCommunity Memorial HospitalComment on above: Performed By: #### [id number] ####[facility] [address]febd[address] AveNoryale [facility], KQ[address]YZDUY H1 RNA ERIBERTO+non-probe Ql (Nph)Not detected NormalCommunity Memorial HospitalComment on above:Performed By: #### [id number] ####[facility] Nzdlnfyzri[address] AveNorrye psychiatric hospital centerk, MQ[address]UARGS H3 RNA ERIBERTO+non-probe Ql (Nph)Not detectedNormalCommunity [facility] Hospital Comment on above:Performed By: #### [id number] ####[address] AveNorrye psychiatric hospital centerk, BL[address]MKKRP RNA ERIBERTO+non-probe Ql (Nph)Not detectedNormalCommunity Memorial HospitalComment on above:Performed By: #### [id number] ####Lang [address] [address]XGKOT RNA ERIBERTO+non-probe Ql (Nph)Not detectedNormHenry County HospitalComment on above:Performed By: #### [id number] ####Rickey [address]Human MetapneumovirusNot detectedNoKing's Daughters Medical Center OhioComment on above:Result Comment: This test result should be correlated with clinical presentations and medical history by a healthcare provider to determine its clinical significance.Performed By: #### [id number] ####Rickey [address], TF[address]Lxjclvwshuzur virus 1 RNA ERIBERTO+non-probe Ql (Nph)Not detected NormalCommunity Memorial HospitalComment on above:Performed By: #### [id number] ####[address] Parainfluenza virus 2 RNA ERIBERTO+non-probe Ql (Nph)Not detectedNoKing's Daughters Medical Center OhioComment on above:Performed By: #### [id number] ####[address]Parainfluenza virus 3 RNA ERIBERTO+non-probe Ql (Nph)Not detectedNormHenry County HospitalComment on above:Performed By: #### [id number] ####Lang [address], FF[address]Mkxnnuzoyutcm virus 4 RNA ERIBERTO+non- probe Ql (Nph)Not detectedNoKing's Daughters Medical Center OhioComment on above: Performed By: #### [id number] ####[address]Resp Panel Intrl QCPassNoKing's Daughters Medical Center OhioComment on above:Performed By: #### [id number] ####[address]key [address]Rhinovirus+Enterovirus RNA ERIBERTO+non-probe Ql (Nph)Not detectedNormHenry County HospitalComment on above:Performed By: #### [id number] ####[address]RSV RNA ERIBERTO+non-probe Ql (Nph)Not detectedNormHenry County HospitalComment on above:Performed By: #### [id number] ####[address] [address]MA With Cult Reflexon 12-93-7103Zoyuajbmh Ql (U)NegativeNormalNegative [facility] HospitalComment on above:Performed By: #### [id number] ####[address] [address] Clarity (U)CLEARNormalClearCommunity Memorial HospitalComment on above:Performed By: #### [id number] ####[address] [address]Zadtq (U)YELLOWNormalYellowCommunity Memorial Hospital Comment on above:Performed By: #### [id number] ####[address] [address]Xjabtlrvnq cells.squamous LM.HPF (Urine sed) [#/Area]7-9Pxzawz6-3RydfcvUniversity Hospitals Portage Medical CenterComment on above: Performed By: #### [id number] ####[address] [address]Cyohsgg Test strip (U) [Mass/Vol]3+AbnormalNegative [facility] HospitalComment on above:Performed By: #### [id number] ####[address] [address] Hemoglobin Ql (U)1+AbnormalNegativeCommunity Memorial HospitalComment on above: Performed By: #### [id number] ####[address] [address]Hturocx (U) [Mass/Vol]NegativeNormalNegativeCommunity Memorial HospitalComment on above:Performed By: #### [id number] ####[address] [address] Enlow.plasma/Enlow.RBC (Bld) [Mass ratio]0-0Czwxsv6-7Vevyic [facility] HospitalComment on above:Performed By: #### [id number] ####[address] [address]Jgipnsh Ql (U)NegativeNormal NegativeCommunity Memorial HospitalComment on above:Performed By: #### [id number] ####[address] [address]hH (U)5.5 [pH]Invalid Interpretation Code5.0-9.0[facility] HospitalComment on above:Performed By: #### [id number] ####[address] [address]Pquraub (U) [Mass/Vol]TRACEAbnormal NegativeCommunity Memorial HospitalComment on above:Performed By: #### [id number] ####[address] [address] Specific gravity (U) [Rel density]1.015Invalid Interpretation Code1.005-1.030 [facility] HospitalComment on above:Performed By: #### [id number] ####[address] [address]Yskl of Urine collection methodClean CatchNormalCommunity Memorial HospitalComment on above:Performed By: #### [id number] ####[address] [address]Vvilzvmpfjug Qn (U)0.2 {Itz'U}/dLNormal0.0-1.0 [facility] HospitalComment on above:Performed By: #### [id number] ####[address] [address]FKT Auto Ql (U)NegativeNormalNegativeCommunity Memorial HospitalComment on above: Performed By: #### [id number] ####Lang [facility] Mpboygrjiq399 [address] AveNoryale [facility], [place] [address]RTI LM.HPF (Urine sed) [#/Area]4-3Azehpn9-1UxrmwjUniversity Hospitals Portage Medical CenterComment on above:Performed By: #### [id number] ####Lang [facility] Liprpczoku[address] AveNcharlotte [facility], [place] [address]YU LE Venous Duplex Bilateralon 56-93-0487JV LE Venous Duplex BilateralNormalCommunity Memorial HospitalUS Renalon 68-93-7968BG RenalNormHenry County HospitalXR Chest Single Viewon 03-00-4648JT Chest Single ViewNoKing's Daughters Medical Center OhioeGFRon 24-73-0547eGEC48 mL/min/1.73 m2Low>=59[facility] Comment on above:Order Comment: Order added by Discern Expert.Performed By: #### [id number], [id number] ####Lang [address] AveNorrye psychiatric [facility] [place], [place] [address]fCDV99 mL/min/1.73 m2Low>=59[facility] Comment on above:Order Comment: Order added by Discern Expert.Performed By: #### [id number], 4093736 ####[facility] Bvfguaofbn[address] AveNorrye psychiatric hospital centerk, [place] [address]eDWY02 mL/min/1.73 m2Low>=59[facility] Comment on above:Order Comment: Order added by Discern Expert.Performed By: #### [id number], [id number] ####Lang [facility] Kryjhlbbui[address] AveNorrye psychiatric hospital centerk, [place] [address]nQIX13 mL/min/1.73 m2Low>=59[facility] Comment on above:Order Comment: Order added by Discern Expert.Performed By: #### [id number], [id number] ####[facility] Dlbqnkbaco[address] AveNorrye psychiatric hospital centerk, [place] [address]jFRI89 mL/min/1.73 m2Low>=59[facility] Comment on above:Order Comment: Order added by Discern Expert.Performed By: #### [id number], 5210563, 31292844 ####[address] [place], [place] [address]aIDH43 mL/min/1.73 m2Low>=59[facility] HospitalComment on above:Order Comment: Order added by Discern Expert.Performed By: #### [id number], 96846043 ####[address] [address]NPQrr 99-01-8123Epibe gap [Moles/Vol]12 mmol/L Normal6-16[facility] HospitalComment on above:Performed By: #### [id number], 8312832 ####[address] [address]TFH/Creat Ratio23 No ZjgdlFdhq88-26NbfzebCommunity Memorial HospitalComment on above:Performed By: #### [id number], [id number] ####[address] [address]Olgsqxn [Mass/Vol]8.4 mg/dLLow8.9-11.1FUniversity Hospitals Portage Medical CenterComment on above:Performed By: #### [id number], 8577074 ####[address] [place], [place] [address]Wlzsxwgb [Moles/Vol]102 mmol/BEbmrzv567-520UzpiqqCommunity Memorial HospitalComment on above:Performed By: #### 65546967, [id number] ####[address] [place], [place] [address]VR7 [Moles/Vol] 30 mmol/DIrauwu39-89RrsvurCommunity Memorial HospitalComment on above:Performed By: #### [id number], 4984889 ####[facility] Yrlqvotcoi[address] AveNFrankfort, [place] [address]Jvxjkutqah [Mass/Vol]2.5 mg/dLHigh0.5-1.3FUniversity Hospitals Portage Medical CenterComment on above:Performed By: #### 34889765, 0186937 ####[address] [place], [place] [address]Tunnyyv [Mass/Vol]463 mg/tVUdqloghg65-690DwefkoCommunity Memorial HospitalComment on above: Result Comment: Critical Result Verified by Previous ResultCritical Result [id number] Called to and read back by: MARLEN SHEETS at: 09/12/2023 22:01:54 by:PRADEEP Monteroformed By: #### [id number], [id number] ####[address] [address]Lfqrmsgfc [Moles/Vol]5.6 mmol/LHigh3.5-5.3Fisher Johns Hopkins HospitalComment on above:Performed By: #### [id number], 7899185 ####[address] [address]Lrqizi [Moles/Vol]138 mmol/NQspmyk824-072CtcfglCommunity Memorial HospitalComment on above:Performed By: #### [id number], 5376867 ####[address] [address]Bwas nitrogen [Mass/Vol]57 mg/dLHigh5-21[facility] HospitalComment on above:Performed By: #### 57780528, 5644326 ####[address] [address]Eooqy gap [Moles/Vol]12 mmol/LNormal6-16[facility] HospitalComment on above:Performed By: #### [id number], 45240205, 5466493 ####[address] [address]WDD/Creat Ratio22 No IzwpcPapj97-62XboaldCommunity Memorial HospitalComment on above:Performed By: #### 3890207, 79873023, 1853247 ####[address] [address]Dypqomm [Mass/Vol]8.4 mg/dLLow 8.9-11.1FUniversity Hospitals Portage Medical CenterComment on above:Performed By: #### 6538850, 48763412, 1214029 ####[facility] [address] [facility], [place] [address]Kslwqauk [Moles/Vol]100 mmol/DAhx796-681UweuwdCommunity Memorial HospitalComment on above:Performed By: #### 9147895, 97066879, 4640273 ####[facility] [address] [place] [address], [place] [address]TY3 [Moles/Vol] 28 mmol/LGqnqmn62-49ObkqnyCommunity Memorial HospitalComment on above:Performed By: #### 9847818, 93889215, 9207630 ####[address], [place] [address]Luxmlhdzma [Mass/Vol]2.6 mg/dLHigh0.5-1.3FUniversity Hospitals Portage Medical CenterComment on above:Performed By: #### 4710922, 93429083, 0468619 ####[facility] [address] [address], [place] [address]Dczuaxn [Mass/Vol]575 mg/tJUbukdnmr42-854QkrzajCommunity Memorial HospitalComment on above:Result Comment: Critical Result S_GLU:575 Called to and read back by: MARLEN SHEETS at: 09/12/2023 18:59:19 by:PRADEEP Stevensal Result Verified by Previous ResultPerformed By: #### [id number], 87344474, 9821791 ####[address] [place] [address] Potassium [Moles/Vol]6.5 mmol/LAbnormal3.5-5.3FUniversity Hospitals Portage Medical CenterComment on above:Result Comment: Critical Result S_K:6.5 Called to and read back by: MARLEN SHEETS at: 09/12/2023 18:59:19 by:PRADEEP AIKENritical Result Verified by Previous ResultPerformed By: #### 3525384, 29179714, 0294128 ####[facility] [address] [place] [address] Sodium [Moles/Vol]133 mmol/WWqt632-079TkqquwCommunity Memorial HospitalComment on above:Performed By: #### 6607769, 99822806, 7625189 ####[facility] [address] [place], [place] [address]Rguk nitrogen [Mass/Vol]57 mg/dLHigh5-21Community Memorial HospitalComment on above:Performed By: #### 5273340, 87403045, 9029572 ####[address] [address]KOFdj 48-24-9128Atshwvzmcho peptide B (Bld) [Mass/Vol]245 pg/mLHigh5-80[facility] Memorial HospitalComment on above:Performed By: #### 42672498, 340238384, 5664465, 2342185455, 78634589, 4678353, 0125514, 74556003, 6572335, 5013056 ####[address] [address]DYRVeh 60-28-6650Qguj HB Qnt0.17 mmol/LNormal 0.02-0.27Community Memorial HospitalComment on above:Performed By: #### 17354557, 153126290, 9807189, 6366668374, 04549801, 7887836, 0204652, 75513472, 9740026, 2652811 ####[facility] [address] [place], [place] [address]Xsutr Gas Art, with Lytes, Gluc, [place] 4a/A Ratio Art26.80 %Normal>=0.80Community Memorial HospitalComment on above:Performed By: #### 863573763 ####[address] [place], [place] [address]VvQB2 Asd817.8 mmHgHigh5.0-15.0[facility] Comment on above:Performed By: #### [id number] ####[address] [place], [place] [address]Qeicra TestPositiveNormalCommunity Memorial HospitalComment on above:Performed By: #### [id number] ####[address] [facility], [place] [address]Tzbp Excess Arterial 2.9 mmol/LNormal>=2.8[facility] Memorial HospitalComment on above:Performed By: #### 968097414 ####[address] [address]MiVSW77/8Invalid Interpretation CodeCommunity Memorial HospitalComment on above:Performed By: #### [id number] ####[address] [address]uWx4+ Art4.64 mg/dLNormal 4.40-5.30Community Memorial HospitalComment on above:Performed By: #### [id number] ####[address] [address]oQvo Oza127 mg/cMZuyfmmof00-96JorzrsCommunity Memorial HospitalComment on above: Result Comment: Results Called To DR GARCIA By DIANA MCKEON And Read Back For Confirmation On 09/12/2023 18:44:48 EST.Performed By: #### [id number] ####[address] [address]wH+ Art5.9 mmol/LHigh3.5-5.3FUniversity Hospitals Portage Medical CenterComment on above:Performed By: #### [id number] ####[address] [address]sKbp Art.6 mmol/LNormal.5-2.2FUniversity Hospitals Portage Medical Center Comment on above:Performed By: #### [id number] ####[address] [address]vSe+ Hqk046.0 mmol/YYlolem318.0-145.0 [facility] HospitalComment on above:Performed By: #### [id number] ####[address] [address]Hdash byWMBInvalid Interpretation Providence HospitalComment on above: Performed By: #### [id number] ####Rickey [address] [address]STNGu Art1.4 %Low1.5-4.9[facility] Comment on above:Result Comment: Reference rangeNonsmoker <1.5%Smoker <5.0%Heavy Smoker <9.0%Performed By: #### [id number] ####Lang [address] [address]EHF7 BG65.0Invalid Interpretation CodeCommunity Memorial HospitalComment on above:Performed By: #### [id number] ####[address] [address] FMetHb Art0.6 %Normal0.0-1.9[facility] Memorial HospitalComment on above: Performed By: #### [id number] ####Lang [address] [address]FI8Pc Art95.9 %Mpzpfd06.0-100.0[facility] HospitalComment on above:Performed By: #### 899132777 ####[address] [address]XRO3 (Bld) [Moles/Vol]27.0 mmol/LHigh22.0-26.0[facility] Memorial HospitalComment on above:Performed By: #### [id number] ####[address] [address]Mudbgggzbh (Bld) [Mass/Vol]14.9 g/eCOgziwx70.0-17.0[facility] Memorial HospitalComment on above:Performed By: #### [id number] ####[address] [address]Yyaqdb saturation in Blood97.9 %Kcsluh60.0-100.0[facility] HospitalComment on above:Performed By: #### 886061333 ####[address] [address]B CO2 Eghtkfdj49.5 uxPuDpmd89.0-45.0[facility] Memorial HospitalComment on above:Performed By: #### [id number] ####[address] [address]E O2 Sxvavurv891.0 myMlWwan54.0-100.0[facility] HospitalComment on above:Performed By: #### [id number] ####[address] [address]tP Arterial7.623Vqn9.350-7.450Community [facility] HospitalComment on above: Performed By: #### [id number] ####[address] [address]Fglljo SiteL RadialNormalCommunity Memorial HospitalComment on above:Performed By: #### 262053318 ####[address] [address]Ocsdwa TypeArterial DrawNormal [facility] HospitalComment on above:Performed By: #### [id number] ####[address] [address]n/A Ratio Art29.90 %Normal>=0.80Community [facility] HospitalComment on above: Performed By: #### 076097574 ####[address] [address]DfXE3 Lpm590.2 mmHgHigh5.0-15.0[facility] Memorial HospitalComment on above:Performed By: #### [id number] ####[address] [address]Fhllli TestPositiveNormal [facility] HospitalComment on above:Performed By: #### [id number] ####[facility] [address] [place], [place] [address]Hjyp Excess Arterial-0.1 mmol/LLow>=2.8[facility] Memorial HospitalComment on above: Performed By: #### 880582393 ####[address] [address]SxXSN66/8Invalid Interpretation CodeFishBrandenburg CenterComment on above:Performed By: #### [id number] ####[address] [address]tKv5+ Art4.76 mg/dL Normal4.40-5.30[facility] HospitalComment on above:Performed By: #### [id number] ####[address] [address]gVd- Xpw274.0 mmol/GLiu166.0-111.0[facility] Memorial HospitalComment on above:Performed By: #### 824732950 ####[address] [address]iOnb Ucv884 mg/xFJqoglild76-02EevxsmCommunity Memorial HospitalComment on above:Result Comment: Results Called To IRVING PECL By WILLEM WILKES _ And Read Back For Confirmation On _.09/12/2023 16:45:25 ESTPerformed By: #### [id number] ####[facility] [address] [place] [address]cI+ Art6.3 mmol/LAbnormal3.5-5.3FUniversity Hospitals Portage Medical Center Comment on above:Result Comment: Results Called To IRVING PECL By WILLEM WILKES _ And Read Back For Confirmation On _.09/12/2023 16:45:25 ESTPerformed By: #### [id number] ####[address] [address]nEvh Art.7 mmol/LNormal.5-2.2FUniversity Hospitals Portage Medical CenterComment on above: Performed By: #### [id number] ####[address] [address]qCs+ Kxa100.0 mmol/KVaonma677.0-145.0[facility] HospitalComment on above:Performed By: #### [id number] ####[address] [address]Otuqm Ange WILKES Invalid Interpretation CodeCommunity Memorial HospitalComment on above:Performed By: #### [id number] ####[address] [address]IQLAv Art2.1 %Normal1.5-4.9[facility] Comment on above:Result Comment: Reference rangeNonsmoker <1.5%Smoker <5.0%Heavy Smoker <9.0%Performed By: #### [id number] ####[address] [address]AHT6 LY31Jqphxwg Interpretation Code [facility] HospitalComment on above:Performed By: #### [id number] ####[address] [address] FMetHb Art0.1 %Normal0.0-1.9[facility] HospitalComment on above: Performed By: #### [id number] ####[address] [address]NW3Vb Art93.3 %Izzgxu09.0-100.0[facility] HospitalComment on above:Performed By: #### [id number] ####[address] [address]QIG9 (Bld) [Moles/Vol]24.3 mmol/KQotevr29.0-26.0[facility] HospitalComment on above:Performed By: #### [id number] ####[address] [address]Xuztdjesyd (Bld) [Mass/Vol]14.8 g/wLOekyec20.0-17.0[facility] HospitalComment on above:Performed By: #### [id number] ####[address] [place], [place] [address]Rfueug saturation in Blood95.4 %Vyfvlu49.0-100.0[facility] HospitalComment on above:Performed By: #### [id number] ####[address] [address]N CO2 Odlmonuk39.6 wgWeEbdk85.0-45.0[facility] HospitalComment on above:Performed By: #### [id number] ####[address] [address]M O2 Uhylvrul88.9 mmHg Gwhqbd46.0-100.0[facility] HospitalComment on above:Performed By: #### [id number] ####[address] [address]lE Arterial7.648Oojzgowr0.350-7.450[facility] HospitalComment on above:Result Comment: Results Called To IRVING ALEX By WILLEM WILKES _ And Read Back For Confirmation On _.09/12/2023 16:45:25 ESTPerformed By: #### [id number] ####[address] [address] Sample SiteL RadialNormalCommunity Memorial HospitalComment on above:Performed By: #### [id number] ####[address] [address]Wtcnkl TypeArterial DrawNormalCommunity [facility] Hospital Comment on above:Performed By: #### [id number] ####[address] [address]t/A Ratio Art17.40 %Normal>=0.80 [facility] HospitalComment on above:Performed By: #### [id number] ####[address] [place], [place] [address]KiUZ8 Nsf642.5 mmHgHigh5.0-15.0[facility] HospitalComment on above:Performed By: #### [id number] ####[address] [address]Qcxsxf TestPositiveNormalCommunity Memorial HospitalComment on above:Performed By: #### [id number] ####[address] [address]Tpvq Excess Arterial-0.1 mmol/LLow >=2.8[facility] HospitalComment on above:Performed By: #### [id number] ####[address] [address]pHm3+ Art4.75 mg/dLNormal4.40-5.30[facility] HospitalComment on above: Performed By: #### [id number] ####[address] [address]mKz- Art98.0 mmol/ETqe696.0-111.0[facility] HospitalComment on above:Performed By: #### [id number] ####[address] [address]zYyh Aac294 mg/dL Qlbauejq90-08JrguctCommunity Memorial HospitalComment on above:Result Comment: Results Called To nicole myers By korina hebert And Read Back For Confirmation On 09/12/2023 14:09:29 EST.Performed By: #### [id number] ####[address] [address]rE+ Art6.0 mmol/LHigh3.5-5.3 [facility] HospitalComment on above:Performed By: #### [id number] ####[address] [address]lFyi Art.9 mmol/LNormal.5-2.2Fisher [facility] Hopkins HospitalComment on above:Performed By: #### [id number] ####[address] [address]eCh+ Edm509.0 mmol/KIyz303.0-145.0[facility] HospitalComment on above:Performed By: #### [id number] ####[address] [address]JxpgslTek Rebreather Mask NormalCommunity Memorial HospitalComment on above:Performed By: #### [id number] ####[address] [address]Qybdv bystacia schneiteInvalid Interpretation CodeCommunity Memorial HospitalComment on above:Performed By: #### [id number] ####Lang [address] [address]YWAOj Art2.2 %Normal1.5-4.9[facility] HospitalComment on above:Result Comment: Reference rangeNonsmoker <1.5%Smoker <5.0%Heavy Smoker <9.0%Performed By: #### [id number] ####[address] [address]HJL0 FB62Rylfvca Interpretation [facility] HospitalComment on above:Performed By: #### [id number] ####[address] [address]CP9Pz Art94.1 %Hxybis25.0-100.0[facility] Comment on above:Performed By: #### [id number] ####[address] [address]HHI1 (Bld) [Moles/Vol]24.3 mmol/L Yjqunv17.0-26.0[facility] HospitalComment on above:Performed By: #### [id number] ####Lang [address] [address]Lwjhzrgrwp (Bld) [Mass/Vol]14.7 g/aIPmedjh49.0-17.0[facility] HospitalComment on above:Performed By: #### [id number] ####[address] [address]Ujyrfo saturation in Blood96.2 %Arwpus35.0-100.0[facility] HospitalComment on above:Performed By: #### [id number] ####[address] [address]S CO2 Qvzzlzjh34.1 jyQjNaaa05.0-45.0[facility] HospitalComment on above:Performed By: #### [id number] ####[address] [address]N O2 Nuozpynz83.6 hrSeWwzhol64.0-100.0[facility] HospitalComment on above:Performed By: #### [id number] ####[address] [address]bU Arterial7.254Low 7.350-7.450[facility] HospitalComment on above:Performed By: #### [id number] ####[address] [address]Louwrr SiteL RadialNormalCommunity Memorial HospitalComment on above: Performed By: #### [id number] ####[address] [address]Mpjbij TypeArterial DrawNormalCommunity Memorial HospitalComment on above:Performed By: #### [id number] ####[address] [address]SYL w/ Auto Diffon 09-12-2023 Basophil Absolute0.1 E9/LNormal0.0-0.2FUniversity Hospitals Portage Medical CenterComment on above:Performed By: #### 35829345, 119063517, 1340530, 8807794978, 52979776, 1429757, 8107055, 18458538, 6401600, 7735122 ####Lang [address] [place], [place] [address]Mmnxqvzrv/100 WBC (Bld)1.0 %Normal 0.0-2.0[facility] HospitalComment on above:Performed By: #### 48311331, 345372983, 9783824, 4608620523, 34633182, 8756316, 1251788, 05739741, 8491380, 2377457 ####Rickey [address] [address]Sxo Absolute0.2 E9/LNormal0.0-0.5Fisher [facility] Hopkins HospitalComment on above:Performed By: #### 96104467, 926359625, 4930315, 4300776661, 37981368, 2071815, 3214729, 31409056, 7802889, 5092619 ####Rickey [address] [address]Blmsnksxuac/100 WBC (Bld)2.9 %Normal 0.0-8.0[facility] HospitalComment on above:Performed By: #### 34447785, 557579461, 9671553, 8768472366, 43858110, 1182199, 8463657, 53380737, 9239221, 5682395 ####Lang [address] [address]Tbyibawuyfl distribution width (RBC) [Ratio]18.2 %High10.9-14.2FUniversity Hospitals Portage Medical CenterComment on above:Performed By: #### 09435444, 568498485, 4370115, 5360101064, 34050961, 6537551, 7144148, 91441000, 5427680, 2896822 ####Lang [address] [address]Qczljdulpf (Bld) [Volume fraction]46.0 %Pubbve05.7-49.0[facility] HospitalComment on above:Performed By: #### 04015722, 204549932, 5351241, 0845035061, 75819278, 7042312, 3706645, 03229508, 4023950, 0296630 ####Lang [address] [place], [place] [address]Otbbxuavat (Bld) [Mass/Vol]14.2 g/dL Yrzffs78.5-17.5FUniversity Hospitals Portage Medical CenterComment on above:Performed By: #### 42252006, 626285756, 1756676, 2406077252, 52777673, 0874685, 2039245, 55550479, 2877283, 9785764 ####Rickey [address] [place], [place] [address]Kvydj Absolute1.0 E9/LNormal1.0-4.0[facility] HospitalComment on above:Performed By: #### 22694862, 853846734, 9921215, 0541280910, 05174509, 1682421, 9894035, 95199993, 5689995, 8956663 ####Rickey [address] [address]Mmeqleomqpx/100 WBC (Bld)14.0 %Vxmsza96.0-50.0[facility] HospitalComment on above: Performed By: #### 86329479, 011054869, 8056482, 8260065683, 80789715, 7271296, 9158780, 38197242, 0632648, 6833870 ####Rickey [address] [address]YOF (RBC) [Entitic mass]27.7 pgNormal 27.0-34.0[facility] HospitalComment on above:Performed By: #### 87521638, 036491955, 5869396, 1077669526, 64864137, 8737981, 7031516, 07512841, 5649100, 8695493 ####Rickey [address] [address]MWEN (RBC) [Mass/Vol]30.8 g/dLLow31.4-36.0[facility] HospitalComment on above:Performed By: #### 12790086, 117941929, 5057655, 9748051075, 48242830, 7089762, 4975448, 03026578, 6028718, 3517144 ####[address] [address]YTH (RBC) [Entitic vol]90.0 xSLemtoq78.0-100.0[facility] HospitalComment on above: Performed By: #### 88233893, 089344788, 1518428, 4981433454, 79494638, 3550094, 0413757, 59493379, 8643792, 8913609 ####[address] [address]Awei Absolute0.8 E9/LNormal0.2-1.0 [facility] HospitalComment on above:Performed By: #### 64454432, 517995534, 5730114, 0301332116, 69798214, 1034171, 4638331, 83876226, 1248677, 9217036 ####[address] [address]Fhteqtynx/100 WBC (Bld)11.3 %Normal4.0-14.0[facility] Comment on above:Performed By: #### 16260943, 994160088, 9121636, 5851789825, 76069897, 6455014, 6626386, 75944802, 6192671, 6388296 ####[address] [address]Kcmqtd Absolute4.8 E9/LNormal 2.0-7.5FUniversity Hospitals Portage Medical CenterComment on above:Performed By: #### 21681695, 381941272, 4512632, 8781557024, 52595542, 8462546, 3885860, 05677696, 6226639, 8887686 ####[address] [address]Zhjicq Auto70.8 %Cqhjjh47.0-75.0[facility] HospitalComment on above:Performed By: #### 07653083, 782451192, 1168038, 2146996293, 14287193, 5548926, 3684668, 97405357, 6019508, 7376017 ####[address] [address]Ufbxwsrf400.0 E9/CZmifwd622.0-500.0 [facility] HospitalComment on above:Performed By: #### 90164178, 400301760, 7472477, 5552679015, 32430942, 6022104, 0846553, 55660458, 1706561, 5324941 ####[address] [address]Ahtdklph mean volume (Bld) [Entitic vol]7.3 fLNormal6.4-10.8[facility] HospitalComment on above:Performed By: #### 97365787, 021283307, 6198439, 1989722998, 73764465, 0532297, 0580038, 95573816, 6059150, 1918622 ####[address] [address]UGX4.1 E12/L Normal4.3-5.9[facility] HospitalComment on above:Performed By: #### 19836052, 497763133, 4059830, 1404381610, 77232757, 9045298, 2089698, 32573369, 9732373, 6286105 ####[address] [address]FRT8.8 E9/LNormal4.0-11.0[facility] HospitalComment on above:Performed By: #### 77100874, 045286763, 8255913, 1956387284, 54749378, 0127478, 7559834, 37391772, 3025124, 2203111 ####Rickey [address] [place], [place] [address]DZAqm 47-67-5006Woedbod [Mass/Vol]3.3 g/dLNormal3.3-5.0[facility] HospitalComment on above:Performed By: #### 29060811, 980097433, 1398922, 6990839692, 39740264, 6576831, 8156759, 77259213, 0409822, 7651027 ####Lang [address] [address]Clmzchn/Globulin [Mass ratio]1.1 {ratio}Normal1.1-2.2FUniversity Hospitals Portage Medical CenterComment on above:Performed By: #### 30782848, 237332641, 2558473, 3315580766, 17716523, 6519953, 1733926, 98495016, 9817518, 5367413 ####Lang [address] [address]Bbz Phos94 Int._Unit/YRapvzm71-34JqvejhCommunity Memorial HospitalComment on above: Performed By: #### 27726464, 358963662, 1557877, 5181947939, 27639550, 7899751, 2589239, 43273423, 6004834, 7541326 ####Lang [address] [address]QCA85 Int._Unit/LNormal6-46[facility] HospitalComment on above:Performed By: #### 23906337, 389936341, 0464903, 3223279325, 61568744, 5604685, 6591843, 12742641, 9161128, 6255133 ####[address] [address]Vwdbq gap [Moles/Vol]10 mmol/LNormal6-16[facility] HospitalComment on above: Performed By: #### 01612448, 435595775, 2324068, 4486803493, 49942102, 3099438, 8734954, 62663131, 5853567, 0639348 ####Rickey [facility] [address] [place], [place] [address]XMV39 Int._Unit/LNormal5-43[facility] HospitalComment on above:Performed By: #### 25187968, 082129320, 4823647, 1940285019, 07556315, 7317474, 0270356, 51380480, 8013176, 0942060 ####Lang [facility] [address] [place], [place] [address]Nuic Total0.6 mg/dLNormal0.0-1.1FUniversity Hospitals Portage Medical CenterComment on above:Performed By: #### 22237856, 482421999, 4077138, 1231983916, 75979724, 5901736, 5807368, 25446826, 1123808, 9979840 ####[facility] [address] [place], [place] [address]BOI/Creat Ratio21 No NgfjtCtvp10-51MsyjriCommunity Memorial HospitalComment on above:Performed By: #### 52838366, 927938728, 3576799, 9564101346, 69291041, 5597795, 8614246, 28902217, 1248993, 9593206 ####Lang [address] [place], [place] [address]Fowrlxh [Mass/Vol]8.3 mg/dLLow8.9-11.1[facility] Hopkins HospitalComment on above: Performed By: #### 27248154, 389747597, 5254976, 9345293859, 14563358, 5397608, 6087810, 62662273, 5423197, 4301647 ####[facility] [address] [place], [place] [address]Iqaovzhq [Moles/Vol]97 mmol/LLow 101-111Community Memorial HospitalComment on above:Performed By: #### 24847032, 607444021, 3758608, 7672647026, 22659965, 9665920, 8601100, 64110067, 7438662, 5057057 ####Lang [facility] [address] [place], [place] [address]GM8 [Moles/Vol]29 mmol/YAmbpwb14-82IsbrqlCommunity Memorial HospitalComment on above:Performed By: #### 21225740, 103592382, 2385296, 9790773345, 02431739, 5372505, 1872852, 77325544, 9870876, 3641741 ####Lang [address] [place], [place] [address]Fomajusehz [Mass/Vol]2.8 mg/dLHigh 0.5-1.3FUniversity Hospitals Portage Medical CenterComment on above:Performed By: #### 07005111, 464751704, 6000878, 6293270209, 60083228, 3341771, 5420116, 00205438, 1618962, 7802858 ####Lang [address] [place], [place] [address]Dzzpopdp (S) [Mass/Vol]3.1 g/dLNormal1.4-4.0[facility] Comment on above:Performed By: #### 42392097, 613165720, 2189853, 2321559582, 06707428, 6831123, 1531386, 44948562, 7829065, 8327358 ####Lang [address] [place], [place] [address]Ehhspjh [Mass/Vol]560 mg/dL Cdjfsegp40-251GjtvheCommunity Memorial HospitalComment on above:Result Comment: Critical Result Verified by Repeat AnalysisCritical Result S_GLU:560 Called to and read back by: ULICES BACA at: 09/12/2023 14:56:08 by:[id number] By: #### 14219761, 450543762, 3537714, 6175825005, 78362252, 2688514, 8610585, 73313571, 4794216, 4381346 ####[address] [place], [place] [address]Dpuqvwlmy [Moles/Vol]6.3 mmol/LAbnormal3.5-5.3 [facility] HospitalComment on above:Result Comment: Critical Result Verified by Repeat AnalysisCritical Result S_K:6.3 Called to and read back by: ULICES BACA at: 09/12/2023 14:56:08 by:[id number] By: #### 21335973, 787671150, 6174874, 9256673639, 71332349, 1449662, 5717135, 91344507, 0734128, 4112540 ####[facility] [address] [place], [place] [address]Kvwdqiv [Mass/Vol]6.4 g/dLNormal6.0-7.8[facility] HospitalComment on above:Performed By: #### 99889256, 246096171, 3453458, 2207112286, 66923586, 2700903, 7480467, 17748003, 4129026, 7559235 ####[address] [place], [place] [address]Umdmie [Moles/Vol]130 mmol/LLow 135-145Community Memorial HospitalComment on above:Performed By: #### 02458965, 441724854, 1376823, 5335029120, 75542670, 1935793, 2164475, 46728575, 2736471, 3886113 ####[facility] [address] [place], [place] [address]Lsfw nitrogen [Mass/Vol]59 mg/dLHigh5-21[facility] HospitalComment on above:Performed By: #### 31199168, 893997962, 1539455, 1566119016, 39247319, 0042784, 9475281, 59351302, 4062509, 6015150 ####[facility] [address] [place], [place] [address]Nugzvdueu Glucose POCon 09-12-2023 Glucose [Mass/Vol]298 mg/xPVjir34-76OagytsCommunity Memorial HospitalComment on above: Performed By: #### [id number] ####Rickey [facility] [address]fzil[address]Ncharlotte [facility], [place] [address]Qgvhskd [Mass/Vol]336 mg/lJHdee23-21Pxzfzs[address] [place], [place] [address]Comment on above:Result Comment: Notified RN/MDPerformed By: #### [id number] ####[facility] Ajyzglabde[address] AveNorrye psychiatric hospital [place]k, [place] [address]Nnknvej [Mass/Vol]431 mg/kGHsop71-02Mxaxvi[address] [place], [place] [address]Comment on above:Result Comment: Notified RN/MDPerformed By: #### [id number] ####[facility] [address]qahrmshrv[address] AveNorrye psychiatric hospital centerk, [place] [address]Bzaxoub [Mass/Vol]468 mg/uAPzujxqbj28-51Ypvngo56 [address] StreetComment on above: Performed By: #### [id number] ####[address] AveNcharlotte [facility], [place] [address]Aovbtiu Cap>760Glzdpczr66-21Mdqedl[address] [place], [place] [address]Comment on above:Result Comment: Repeat TestPerformed By: #### [id number] ####[facility] Rpbvxtkrqc[address] AveN[place]lotte [place] [address] Glucose Cap>629Jjbzupwq92-19Rmwgnf[address] [place], [place] [address]Comment on above:Result Comment: Cleaned MeterPerformed By: #### [id number] ####[address], [place] [address]Ojacknx for Treatmenton 05-94-5903Syamerz for Treatment [id number] HealthCare Main CampusConsultation Noteon 19-87-9086Lnuvzxwtjmnj NoteNoKing's Daughters Medical Center OhioComment on above:Result Comment: Electronically Signed By: Nehal Robles PA-C, Shaquille Manriquezbr\Date and Time Signed: 09/12/23 17:54 ESTED Clinical Summaryon 45-13-9213OD Clinical SummaryNormVan Wert County Hospital Note-Physician on 03-23-9920UH Note-PhysicianNoKing's Daughters Medical Center OhioComment on above: Result Comment: Electronically Signed By: Nicole Myers DO\.samir\Date and Time Signed: 09/12/23 16:07ESTED Patient Education Noteon 83-30-5641BS Patient Education NoteNormVan Wert County Hospital Patient Summaryon 90-24-4483NV Patient SummaryNormHenry County HospitalGlucoseon 94-59-4766Ltazokt [Mass/Vol]533 mg/pSSeuyzpvi50-079JkojhvCommunity Memorial HospitalComment on above: Result Comment: Critical Result Verified by Previous ResultCritical Result S_GLU:533 Called to and read back by: YI FERRER at: 09/12/2023 19:24:47 by:PRADEEP Monteroformed By: #### [id number] ####[facility] [address] [place], [place] [address]Jksojycwc A&B Agon 09-12-2023 Influenzae A AgNegativeNormalNegativeCommunity Memorial HospitalComment on above:Performed By: #### [id number], [id number] ####[facility] [address] [place], [place] [address]Htomtksczc B AgNegativeNormalNegative [facility] HospitalComment on above:Result Comment: Test sensitivity and specificity vary for age group, specimen type, antigen types, and prevalence of disease. Test results must be evaluated in conjunction with other clinical data available to the physician. Individuals who received nasally administered Influenza A vaccine may havepositive test results up to 3 days after vaccination.Performed By: #### [id number], [id number] ####[facility] [address], [place] [address]Dihxaf Acidon 42-82-0645Vbmosk Acid Lvl1.2 mmol/LNormal0.5-2.2Fisher [facility] HospitalComment on above: Performed By: #### [id number] ####[facility] [address] [place], [place] [address]Hkxrsu Acid Lvl1.2 mmol/LNormal0.5-2.2Fisher [facility] HospitalComment on above:Performed By: #### [id number], [id number], 9399216, 1975101258, 18099235, 3107513, 2935446, 42301327, 6637588, 1926249 ####[facility] [address] [place], [place] [address]Ntttau Levelon 12-36-5869Xyjiqi Lvl14 unit/ABargkk61-85DvjxrrCommunity Memorial HospitalComment on above:Performed By: #### [id number], [id number], 0954120, 8532190794, 42258790, 9318516, 3567245, 29529058, 5832891, 1437803 ####[facility] [address] [place], [place] [address]Nqhbutj Recordon 79-67-9563Odutyrg [id number]#1.00TIFFNormalMount St. Mary Hospitalitor [id number]#1.00TIFF NormalMount St. Mary Hospitalitor Record [id number]#1.00TIFFNormalMount St. Mary Hospitalitor [id number]#1.00TIFF[address] Hospitalitor Record [id number]#1.00TIFFNormHenry County HospitalPT & PTTon 56-08-8836uXIS Coag (PPP) [Time]32.5 second(s)Auhqeg34.1-36.5 [facility] HospitalComment on above:Result Comment: Parameter 15 days - 4 weeks 1 - 5 months 6 - 11 months 1 - 5 years 6 - 10 years 11 - 17 years PTT Mean: 35.4 (27.6-45.6) Mean: 33.5 (24.8-40.7) Mean: 32.4 (25.1-40.7) Mean: 31.6 (24.0-39.2) Mean: 31.6 (26.9-38.7) Mean: 31.0 (24.6-38.4) Pediatric Reference ranges were obtained from astudy by blane Dooley prepared from 1437 samples obtained at 7 different centers using thesame coagulation reagent and instrumentation as [facility]. Currently there are no coagulation studies available worldwide for children to 14 days, and no normal ranges. Heparin therapeutic range (represented by Anti-Factor Xa activity of 0.2 - 0.4 U/mL) corresponds to PTT of 56.6 - 109.0 sec.Performed By: #### [id number], [id number], 2424921, 1346414099, 24650272, 6257680, 2574696, 96973794, 3625228, 2623878 ####[facility] [address] [place], [place] [address]YRB Coag (PPP) [Relative time]1.1 {INR}Invalid Interpretation CodeFisher Johns Hopkins HospitalComment on above:Result Comment: INR results are specifically intended to assess patients stabilized on long-term Anticoagulation therapy suggested INR?s ?Less Intensive Anticoagulation? 2.0 ? 3.0Conventional Range 3.0 ? 4.5Performed By: #### [id number], 784120008, 1739175, 5002039769, 51455830, 7387407, 0923029, 26646737, 2701268, 3928358 ####[facility] [address] [place], [place] [address]KI Coag (PPP) [Time]12.0 second(s) Normal9.4-12.5Fisher Johns Hopkins HospitalComment on above:Result Comment: 15 days - 4 weeks 1 - 5 months 6 -11 months 1-5 years 6-10 years 11 -17 years Mean: 11.2 (9.5-12.6) Mean: 11.0 (9.7-12.8) Mean: 11.0 (9.8-13.0) Mean: 11.3 (9.9- 13.4) Mean: 11.7 (10.0-14.6) Mean: 11.8 (10.0 - 14.1) Pediatric Reference ranges were obtained from a study by Isaiah Hallman et al. prepared from 1437 samples obtained at 7 different centers using the same coagulation reagent and instrumentation as [facility]. Currently there are no coagulation studies available worldwide for children to 14 days, and no normal ranges.Performed By: #### [id number], 960981330, 2204250, 3109400855, 90900375, 5556860, 2632885, 44236052, 4474572, 2787041 ####[facility] [address] [place], [place] [address]Nvt-Hozyzlr Noteon 48-32-9084Tiy-Arrival NoteNormHenry County HospitalProcalcitoninon 43-11-4438Vecirpzksypeu.10 ng/mLNormal .00-.50Community Memorial HospitalComment on above:Result Comment: <0.5 ng/mL Low risk of severe [...] to retest PCT within 6 to 24 hours.Performed By: #### [id number], 787365498, 7616679, 0698884004, 97507072, 9272834, 9832950, 54208628, 8462065, 2621332 ####[facility] [address] [place], [place] [address]Fsjhz COVID Antigen ([facility])on 69-91-1086Uzwxu COV Int NEG CtlPassWayne HealthCare Main CampusComment on above:Performed By: #### [id number], [id number] ####[facility] [address] [place], [place] [address]Tyamt COV Int POS CtlPassNormHenry County HospitalComment on above:Performed By: #### [id number], [id number] ####[facility] [address] [place], [place] [address]ZHKI-LjI+SARS-CoV-2 (COVID-19) Ag IA.rapid Ql (Resp)Not detectedNormalNot DetectedFishBrandenburg CenterComment on above: Result Comment: The [employer]? System for Rapid Detection of SARS-CoV-2 is a chromatographic digital immunoassay intended for the direct and qualitative detection of SARS-CoV-2 nucleocapsid antigensin nasal swabs from individuals who are suspected of COVID-19 by their healthcare provider within the first five days of the onset of symptoms. Negative results should be treated as presumptive, do not rule out SARS-CoV-2 infection and should not be used as the sole basis for treatment or patient management decisions, including infection control decisions. Negative results should be considered inthe context of a patient?s recent exposures, history [...] detection and/or diagnosis of the virus that cau ses COVID-19 under Section 564(b)(1) of the Act, 21 U.S.C. ? 360bbb-3(b)(1), unless the authorization is terminated or revoked sooner.Performed By: #### [id number], [id number] ####[address] [address]Oonxnetqnedbkvc 50-55-4265Yqizpqsjabpe [Mass/Vol]131 mg/dL Normal<=149Community Memorial HospitalComment on above:Performed By: #### 5071680, 65800846, 8474276 ####[address] [address]Vmozsioqof 85-30-2514Dwgybueh88.30 pg/mLAbnormal 15.90-38.40Community Memorial HospitalComment on above:Result Comment: Critical Result Verified by Repeat AnalysisCritical Result I_TnIHS:59.3 Called to and read back by: ULICES BACA at: 09/12/2023 16:43:58 by:[id number] 95% CI (Confidence Interval) PPV (Positive Predictive Value) for myocardial infarction in females is 38 pg/mL, in males 51 pg/mL. The results should be used in conjunction with clinical conditions of myocardial infarction.(Access High Sensitivity Troponin I Instructions For Use, Opal BlackArrow, March 2018) Performed By: #### [id number], 095488664, 3190705, 7567673520, 25146734, 6333685, 4284686, 68601540, 8311432, 5794440 ####[address] [address]L Drug Screenon 09-12-2023U Amph Scr NegativeInvalid Interpretation CodeCommunity Memorial HospitalComment on above: Performed By: #### [id number] ####[address] [address]N Jo-Ann ScrNegativeInvalid Interpretation [facility] HospitalComment on above:Performed By: #### [id number] ####[address] [address]V Benzodia Scr NegativeInvalid Interpretation CodeCommunity Memorial HospitalComment on above: Performed By: #### [id number] ####[address] [address]R Cannab ScrNegativeInvalid Interpretation Code Community Memorial HospitalComment on above:Performed By: #### [id number] ####[facility] [address] [place], [place] [address]V Cocaine ScrNegativeInvalid Interpretation [facility] HospitalComment on above:Performed By: #### [id number] ####[address] [address]O Opiate ScrNegativeInvalid Interpretation [facility] HospitalComment on above:Performed By: #### [id number] ####[address] [address]C PCP ScrNegativeInvalid Interpretation [facility] Comment on above:Performed By: #### [id number] ####[address] [address]YD With Cult Reflexon 09-12-2023 Bilirubin Ql (U)NegativeNormalNegativeCommunity Memorial HospitalComment on above:Performed By: #### [id number] ####[address] [address]Lbvtuvx (U)CLEARNormalClearCommunity Memorial HospitalComment on above:Performed By: #### [id number] ####[address] [address]Kozec (U)YELLOWNormalYellow Community Memorial HospitalComment on above:Performed By: #### [id number] ####[address] [address] Crystals LM Ql (Urine sed)PresentNormHenry County HospitalComment on above:Performed By: #### [id number] ####[address] [address]Xzgpzhzejq cells.squamous LM.HPF (Urine sed) [#/Area]2-6Vvgjah3-9VeslwsUniversity Hospitals Portage Medical CenterComment on above:Performed By: #### [id number] ####[address] [address]Qutlucu Test strip (U) [Mass/Vol]3+AbnormalNegativeCommunity Memorial HospitalComment on above:Performed By: #### [id number] ####Lang [address] [address]Ndsisyvveo Ql (U)1+Abnormal NegativeCommunity Memorial HospitalComment on above:Performed By: #### [id number] ####Rickey [address] [address] Ketones (U) [Mass/Vol]NegativeNormalNegativeCommunity Memorial HospitalComment on above:Performed By: #### [id number] ####[address] [address]Yxeqjtw.plasma/Enlow.RBC (Bld) [Mass ratio]0-9Gfqkey1-3Dgquoj Johns Hopkins HospitalComment on above:Performed By: #### [id number] ####[address] [address]Drvdlrf Ql (U)NegativeNormalNegTwin City HospitalComment on above:Performed By: #### [id number] ####[address] [address]lE (U)5.5 [pH]Invalid Interpretation Code5.0-9.0Community Memorial HospitalComment on above:Performed By: #### [id number] ####Lang [address] [address]Fmkstok (U) [Mass/Vol]1+AbnormalNegativeCommunity Memorial HospitalComment on above:Performed By: #### [id number] ####[address] [address]Zvyxywnj gravity (U) [Rel density]1.015Invalid Interpretation Code1.005-1.030[facility] Comment on above:Performed By: #### [id number] ####Lang [address] [address]Npup of Urine collection methodClean CatchNormalCommunity Memorial HospitalComment on above:Performed By: #### [id number] ####Rickey [address] [address]Narditqadoxr Qn (U)0.2 {Itz'U}/dLNormal0.0-1.0Community Memorial HospitalComment on above:Performed By: #### [id number] ####Rickey [address] [address]FYR Auto Ql (U)NegativeNormal NegativeCommunity Memorial HospitalComment on above:Performed By: #### [id number] ####[address] [address]HBQ LM.HPF (Urine sed) [#/Area]0-9Rfnrwm2-1Aauaui Johns Hopkins HospitalComment on above:Performed By: #### [id number] ####[address] [address]DE Chest Single Viewon 68-54-9741IT Chest Single ViewNormalCommunity Memorial HospitaleGFRon 24-79-6767yBTK37 mL/min/1.73 m2Low >=59Community Memorial HospitalComment on above:Order Comment: Order added by Discern Expert.Performed By: #### [id number], 1384795 ####[address] [address]rXMD14 mL/min/1.73 m2Low>=59 [facility] HospitalComment on above:Order Comment: Order added by Discern Expert.Performed By: #### [id number], 61412636, 2456022 ####[address] [address]pSEU64 mL/min/1.73 m2 Low>=59Community Memorial HospitalComment on above:Order Comment: Order added by Discern Expert.Performed By: #### [id number], 786944236, 7836817, 6730947016, 25192599, 8244253, 3601621, 86717945, 0949398, 6729554 ####[facility] [address] [place], [place] [address]Uyrujnp for Procedure/Surgery on 22-17-4388Pyxcykg for Procedure/Surgery [id number]#1.00TIFFelicitasKing's Daughters Medical Center OhioCorrespondence - Woundon 69-88-4080Cxutiacsdwguko - Wound [id number]#1.00TIFFelicitasKing's Daughters Medical Center OhioConsent for Procedure/Surgeryon 63-48-5576Jowyzxv for Procedure/Surgery [id number]#1.00CALIFORNIAAllisonKing's Daughters Medical Center OhioConsent for Treatmenton 14-94-4976Xtsldbv for Treatment [id number]#1.00TIFKettering HealthCorrespondence - Woundon 06-11-2513Mioopwptowbrks - Wound [id number]#1.00TIFKettering HealthCorrespondence - [id number]#1.00TIFMi Wayne HealthCare Main CampusInsurance Correspondenceon 01-46-0650Lecimzzha B[id number]#1.00TIFFelicitasKing's Daughters Medical Center OhioMulti-Wound Charton 66-61-1096Cklvf-Wound Chart [id number]#1.00[facility] Community HospitalNursing Assessment - Woundon 20-79-1482Kuaeljk Assessment - Wound [id number]#1.00[facility] Community HospitalPhysician Orderon 55-52-6787Rwudimcuh Order [id number]#1.00TIFKettering HealthProgress Note - Woundon 58-95-1026Ttetccit Note - Wound [id number]#1.00TIFFNoKing's Daughters Medical Center OhioNo Panel InformationOrdered By: Elisa Ansari on 57-76-0807JWCyvwiwbkxk White Blood Cells 3+ Gram Positive Cocci 3+ Gram Positive Rods 1+ Gram Negative RodsKettering Health Main CampusBasophils Auto (Bld) [#/Vol] Ordered By: Alban Arrington on 83-21-7427Doxbctdgl (Bld) [#/Vol]0.1 10*3/uL 0.0-0.2FCherrington HospitalBasophils/100 WBC Auto (Bld)Ordered By: Alban Arrington on 19-51-3975Sbcncqjfi/100 WBC (Bld)0.7 %.[facility] Medical CenterCalcium [Mass/volume] in Serum or PlasmaOrdered By: Alban Arrington on 29-55-8416Unyedud [Mass/Vol]8.7 mg/dL8.6-10.3FCherrington HospitalCarbon dioxide, total [Moles/volume] in Serum or PlasmaOrdered By: Alban Arrington on 82-57-2365WG2 [Moles/Vol]41.1 mmol/L21.0-31.0[facility] Medical CenterChloride [Moles/volume] in Serum or PlasmaOrdered By: Alban Arrington on 01-33-8173Rfewcfvc [Moles/Vol]100 mmol/V84-064HgjjatsfcUniversity Hospitals Geauga Medical CenterCreatinine [Mass/volume] in Serum or PlasmaOrdered By: Alban Arrington on 53-63-0342Wjvdtbddpa [Mass/Vol]1.60 mg/dL0.70-1.30[facility] Medical CenterEosinophils Auto (Bld) [#/Vol]Ordered By: Alban Arrington on 94-44-1439Oiqktoncgct (Bld) [#/Vol]0.5 10*3/uL0.0-0.45[facility] Medical CenterEosinophils/100 WBC Auto (Bld)Ordered By: Alban Arrington on 06-21-2023 Eosinophils/100 WBC (Bld)5.4 %.[facility]aug[facility] Medical CenterErythrocyte distribution width Auto (RBC) [Ratio]Ordered By: Alban Arrington on 06-21-2023 Erythrocyte distribution width (RBC) [Ratio]16.0 %12.0-14.8[facility] Medical CenterGlucose Glucometer (BldC) [Mass/Vol]Ordered By: Alban Arrington on 97-72-7624Gdrghdl [Mass/Vol]200 mg/dLUniversity Hospitals Geauga Medical CenterComment on above:Random Glucose Reference Range is dependent on time and content of last meal. Glucose of more than 200 mg/dL in a nonstressed, ambulatory subject supports the diagnosis of Diabetes Mellitus.Glucose [Mass/volume] in Serum or PlasmaOrdered By: Alban Arrington on 95-81-5874Odgdnpm [Mass/Vol]60 mg/aZ72-845 [facility] Medical CenterComment on above:Delta: 220 on 06/20/23-0739ADA recommended reference rangeRandom Glucose Reference Range is dependent on time and content of last meal. Glucose of more than 200 mg/dL in a nonstressed, ambulatory subject supports the diagnosis of Diabetes Mellitus.Hematocrit Auto (Bld) [Volume fraction]Ordered By: Alban Arrington on 83-95-6006Cgdcgowzhy (Bld) [Volume fraction]46.3 %38.8-50.0[facility]aug[facility] Medical CenterHemoglobin [Mass/volume] in BloodOrdered By: Alban Arrington on 23-38-7625Iwgbqvyjly (Bld) [Mass/Vol]14.9 g/dL13.0-17.0[facility] Medical CenterLeukocytes [#/volume] corrected for nucleated erythrocytes in Blood by Automated coun Ordered By: Alban Arrington on 91-84-4912IBU corrected for nucl RBC Auto (Bld) [#/Vol]9.5 10*3/uL4.1-10.5FCherrington HospitalLymphocytes Auto (Bld) [#/Vol]Ordered By: Alban Arrington on 65-08-1425Ewzbaqtbfpn (Bld) [#/Vol] 2.5 10*3/uL1.00-4.8[facility] Medical CenterLymphocytes/100 WBC Auto (Bld)Ordered By: Alban Arrington on 35-65-1324Qztjychlesq/100 WBC (Bld)26.3 %. [facility] Medical CenterMCH Auto (RBC) [Entitic mass]Ordered By: Alban Arrington on 91-84-1138DGF (RBC) [Entitic mass]28.4 pg27.5-35.2FCherrington HospitalMCHC Auto (RBC) [Mass/Vol]Ordered By: Alban Arrington on 19-43-6547VCRH (RBC) [Mass/Vol]32.2 g/dL32.5-35.6FCherrington HospitalMCV Auto (RBC) [Entitic vol]Ordered By: Alban Arrington on 67-23-7656HKO (RBC) [Entitic vol]88.3 fL83.5-101[facility] Medical CenterMagnesium [Mass/volume] in Serum or PlasmaOrdered By: Alban Arrington on 06-21-2023 Magnesium [Mass/Vol]1.8 mg/dL1.9-2.7FCherrington HospitalMonocytes Auto (Bld) [#/Vol]Ordered By: Alban Arrington on 91-69-0337Yxeveipmt (Bld) [#/Vol]0.9 10*3/uL0.0-0.8[facility] Medical CenterMonocytes/100 WBC Auto (Bld)Ordered By: Alban Arrington on 99-61-0257Xhpdcddgl/100 WBC (Bld)9.9 %. [facility] Medical CenterNeutrophils Auto (Bld) [#/Vol]Ordered By: Alban Arrington on 21-45-4224Dmronthpgym (Bld) [#/Vol]5.5 10*3/uL1.8-7.7FCherrington HospitalNeutrophils/100 WBC Auto (Bld)Ordered By: Alban Arrington on 93-29-2368Arsgjqohdqe/100 WBC (Bld)57.7 %.[facility] No Panel InformationOrdered By: Alban Arrington on 41-28-7569Flpdgjizl GFR (CKD-EPI)47.816 mL/MinUniversity Hospitals Geauga Medical CenterPharmacy Creatinine Clearance (Chem69.61[facility] Medical CenterBedside Glucose #[address]/AlfonsoCherrington HospitalBedside Glucose CommentSee commentUniversity Hospitals Geauga Medical CenterComment on above:Glu2: Will Repeat Test Nucleated erythrocytes [Presence] in Blood by Automated countOrdered By: Alban Arrington on 46-14-7565Pwmmzwtlo RBC Auto Ql (Bld)0.1 /100{WBC}0-0.5FCherrington HospitalPlatelet mean volume Auto (Bld) [Entitic vol]Ordered By: Alban Arrington on 38-50-3727Qlvroucp mean volume (Bld) [Entitic vol]7.1 fL 6.6-10.1FCherrington HospitalPlatelets Auto (Bld) [#/Vol]Ordered By: Alban Arrington on 76-30-1154Nqpnzhuix (Bld) [#/Vol]241 10*3/hZ913-217CaunbzkmqUniversity Hospitals Geauga Medical CenterPotassium [Moles/volume] in Serum or PlasmaOrdered By: Alban Arrington on 41-95-8980Wdciobxek [Moles/Vol]4.4 mmol/L3.5-5.1FCherrington HospitalRBC Auto (Bld) [#/Vol]Ordered By: Alban Arrington on 74-37-8432ZAN (Bld) [#/Vol]5.24 10*6/uL3.90-5.60Wadsworth-Rittman Hospitalerum or plasma anion gap determinationOrdered By: Alban Arrington on 01-17-5729Ckymw gap [Moles/Vol]6.3 mmol/L6.0-15.0W[facility]sworth-Rittman Hospitalodium [Moles/volume] in Serum or PlasmaOrdered By: Alban Arrington on 86-70-6529Edrdfm [Moles/Vol]143 mmol/C084-408SsimxxvplUniversity Hospitals Geauga Medical Center Urea nitrogen [Mass/volume] in Serum or PlasmaOrdered By: Alban Arrington on 10-01-0746Vbmt nitrogen [Mass/Vol]38 mg/dL7-[facility] WBC Auto (Bld) [#/Vol]Ordered By: Alban Arrington on 98-08-9979CMV (Bld) [#/Vol] 9.5 10*3/uL4.1-10.5FCherrington HospitalLaboratory - Chemistry and Chemistry - challengeOrdered By: Alban Arrington on 49-30-9340UD0 [Moles/Vol]38.0 mmol/L23.0-27.0[facility] Medical CenterHCO3 (Bld) [Moles/Vol]36.0 mmol/L23.0-29.0[facility] Medical CenterNo Panel InformationOrdered By: Alban Arrington on 51-62-5708Sdbygsrt Blood Base Excess8.1 mmol/L-3.0-3.0 [facility] Medical CenterArterial Blood Oxygen Content9.0 mmol/L6.6-9.7 [facility]aug[facility] Medical CenterArterial Blood Oxygen Afmupqkrrf97.1 % 95.0-100.0[facility]auga Medical CenterArterial Blood Partial Pressure CO2 63.6 mm[Hg]35.0-45.0[facility]aug[facility] Medical CenterArterial Blood Partial Pressure O269.0 mm[Hg]80.0-100.0[facility]aug[facility] Medical CenterArterial Blood pH7.377.35-7.45[facility] Medical CenterBlood Gas Critical ValueSee Trinity Health SystemComment on above:Critical Value called on: 06/20/2023 at 17:52Blood Gas Liter Flow5l L/minUniversity Hospitals Geauga Medical CenterBlood Gas Sample SiteRight radialUniversity Hospitals Geauga Medical CenterFiO2Na % [facility] Medical CenterMonocyte distribution width [Entitic volume] in Blood by AutomatedOrdered By: Alban Arrington on 30-44-0399Barzjdrf distribution width Auto (Bld) [Entitic vol]15.91 %0.00-20.00[facility] Automated erythrocytes count in urine sediment (number/area)Ordered By: Art Kirby on 23-95-8363XND Auto (Urine sed) [#/Area]0-1 [HPF]0-4FCherrington HospitalAutomated leukocytes count in urine sediment (number/area)Ordered By: Art Sawantarthy on 70-98-7426QZY Auto (Urine sed) [#/Area]None seen [HPF]0-4FCherrington HospitalBasophils Auto (Bld) [#/Vol]Ordered By: Art Sawantarthy on 10-52-8555Zqzepryxt (Bld) [#/Vol]0.0 10*3/uL0.0-0.2FCherrington HospitalBasophils/100 WBC Auto (Bld) Ordered By: Art Kofi on 23-13-5846Yppiceqri/100 WBC (Bld)0.7 %.[facility] Medical CenterBilirubin Auto test strip Ql (U)Ordered By: Artjasvir Kirby on 44-52-0576Yyeuzzwrr Ql (U)NegativeNegativeUniversity Hospitals Geauga Medical CenterCOVID CepheidOrdered By: Art Kirby on 75-61-7550UIQM-CoV-2 (COVID- 19) Ab IA QlNegativeNegativeUniversity Hospitals Geauga Medical CenterComment on above: This is a duplicate Cepheid Xpert Xpress CoV-2/Flu/RSV Plus RNA by RT-PCR result to be used for statistical tracking purpose only.SARS-CoV-2 (COVID-19) RNA ERIBERTO+probe Ql (Unsp spec)[facility] Medical CenterCalcium [Mass/volume] in Serum or PlasmaOrdered By: Art Kirby on 88-26-6948Diqsoxf [Mass/Vol] 8.8 mg/dL8.6-10.3FCherrington HospitalCarbon dioxide, total [Moles/volume] in Serum or PlasmaOrdered By: Art Kirby on 21-44-8462FS7 [Moles/Vol]33.2 mmol/L21.0-31.0[facility] Medical CenterChloride [Moles/volume] in Serum or PlasmaOrdered By: Art Kirby on 06-18-2023 Chloride [Moles/Vol]102 mmol/Y52-399ThrbztqrnUniversity Hospitals Geauga Medical CenterCreatinine [Mass/volume] in Serum or PlasmaOrdered By: Art Kirby on 06-18-2023 Creatinine [Mass/Vol]1.51 mg/dL0.70-1.30[facility] Eosinophils Auto (Bld) [#/Vol]Ordered By: Art Kirby on 06-18-2023 Eosinophils (Bld) [#/Vol]0.2 10*3/uL0.0-0.45[facility] Eosinophils/100 WBC Auto (Bld)Ordered By: Art Kirby on 06-18-2023 Eosinophils/100 WBC (Bld)3.1 %.[facility] Geauga Medical CenterErythrocyte distribution width Auto (RBC) [Ratio]Ordered By: Art Kirby on 06-18-2023 Erythrocyte distribution width (RBC) [Ratio]15.4 %12.0-14.8[facility] Geaug[facility] Medical CenterGlucose [Mass/volume] in Serum or PlasmaOrdered By: Art Kirby on 60-63-4151Wymxtyk [Mass/Vol]294 mg/cX18-739LigiqgyunUniversity Hospitals Geauga Medical CenterComment on above:ADA recommended reference rangeRandom Glucose Reference Range is dependent on time and content of last meal. Glucose of more than 200 mg/dL in a nonstressed, ambulatory subject supports the diagnosisof Diabetes Mellitus.Hematocrit Auto (Bld) [Volume fraction]Ordered By: Art Kirby on 70-01-9621Lfnfwxbqcl (Bld) [Volume fraction]46.7 %38.8-50.0[facility] Medical CenterHemoglobin [Mass/volume] in BloodOrdered By: Art Kirby on 88-87-4104Fwybqhfekp (Bld) [Mass/Vol]14.9 g/dL13.0-17.0[facility] CenterKetones Auto test strip (U) [Mass/Vol]Ordered By: Art Kirby on 86-65-4898Oyjucnh (U) [Mass/Vol]NegativeNegativeUniversity Hospitals Geauga Medical CenterLaboratory - UrinalysisOrdered By: Art Kirby on 06-18-2023 Hyaline casts LM Ql (Urine sed)None seen [LPF]0-8[facility] CenterLeukocytes [#/volume] corrected for nucleated erythrocytes in Blood by Automated counOrdered By: Art Kirby on 18-01-0536SRL corrected for nucl RBC Auto (Bld) [#/Vol]6.7 10*3/uL4.1-10.5FCherrington Hospital Lymphocytes Auto (Bld) [#/Vol]Ordered By: Art Kirby on 06-18-2023 Lymphocytes (Bld) [#/Vol]1.4 10*3/uL1.00-4.8[facility] Lymphocytes/100 WBC Auto (Bld)Ordered By: Art Kirby on 06-18-2023 Lymphocytes/100 WBC (Bld)20.2 %.[facility] CenterH Auto (RBC) [Entitic mass]Ordered By: Art Kirby on 90-48-7154TJF (RBC) [Entitic mass] 28.2 pg27.5-35.2FCherrington HospitalMCHC Auto (RBC) [Mass/Vol] Ordered By: Art Kirby on 20-56-8154ZSNC (RBC) [Mass/Vol]32.0 g/dL 32.5-35.6FCherrington HospitalMCV Auto (RBC) [Entitic vol]Ordered By: Art Kirby on 85-31-9940DWY (RBC) [Entitic vol]88.2 fL83.5-101 [facility] CenterMonocyte distribution width [Entitic volume] in Blood by AutomatedOrdered By: Art Kirby on 84-70-0016Lamgpchd distribution width Auto (Bld) [Entitic vol]15.12 %0.00-20.00[facility] CenterMonocytes Auto (Bld) [#/Vol]Ordered By: Art Kirby on 57-84-3157Ppbivdsqv (Bld) [#/Vol]0.6 10*3/uL0.0-0.8[facility] CenterMonocytes/100 WBC Auto (Bld)Ordered By: Art Kirby on 06-18-2023 Monocytes/100 WBC (Bld)9.2 %.[facility] CenterNatriuretic peptide B [Mass/Vol]Ordered By: Art Kirby on 35-18-6763Jnoehzourpa peptide B (Bld) [Mass/Vol]98.0 pg/mL5-100[facility] Neutrophils Auto (Bld) [#/Vol]Ordered By: Art Kirby on 06-18-2023 Neutrophils (Bld) [#/Vol]4.5 10*3/uL1.8-7.7FCherrington Hospital Neutrophils/100 WBC Auto (Bld)Ordered By: Art Kirby on 06-18-2023 Neutrophils/100 WBC (Bld)66.8 %.[facility] CenterNo Panel InformationOrdered By: Art Kirby on 06-22-3623Kxqkkeilg GFR (CKD-EPI) 51.256 mL/MinUniversity Hospitals Geauga Medical CenterPharmacy Creatinine Clearance (Chem71.87[facility] CenterNucleated erythrocytes [Presence] in Blood by Automated countOrdered By: Art Kirby on 36-63-5043Tomrlekgn RBC Auto Ql (Bld)0.1 /100{WBC}0-0.5FCherrington HospitalPlatelet mean volume Auto (Bld) [Entitic vol]Ordered By: Art Kirby on 06-18-2023 Platelet mean volume (Bld) [Entitic vol]7.2 fL6.6-10.1FCherrington HospitalPlatelets Auto (Bld) [#/Vol]Ordered By: Art Kirby on 06-18-2023 Platelets (Bld) [#/Vol]214 10*3/gV071-355DkfjxuyhpUniversity Hospitals Geauga Medical Center Potassium [Moles/volume] in Serum or PlasmaOrdered By: Art Kirby on 63-06-5707Fjcppmtro [Moles/Vol]5.2 mmol/L3.5-5.1FCherrington HospitalProtein Auto test strip (U) [Mass/Vol]Ordered By: Art Kirby on 67-27-1354Vvkjojl (U) [Mass/Vol]100 mg/dLNegativeUniversity Hospitals Geauga Medical CenterRBC Auto (Bld) [#/Vol]Ordered By: Art Kirby on 18-83-4746NQA (Bld) [#/Vol]5.30 10*6/uL3.90-5.60[facility]ittman Hospitalerum or plasma anion gap determinationOrdered By: Art Kirby on 34-30-5053Morfm gap [Moles/Vol]8.0 mmol/L6.0-15.0[facility]ittman Hospitalodium [Moles/volume] in Serum or PlasmaOrdered By: Art Kirby on 06-18-2023 Sodium [Moles/Vol]138 mmol/Q628-134RhoaumuajWadsworth-Rittman Hospitalquamous epithelial cells detection in urine sediment by light microscopyOrdered By: Art Kirby on 35-62-6603Abhmnrwazk cells.squamous LM Ql (Urine sed)0-1 [HPF]0-2FCherrington HospitalTroponin I.cardiac [Mass/volume] in Serum or Plasma by Detection limit <= 0.01 ng/Ordered By: Art Kirby on 53-01-3665Qexwzwxa I.cardiac DL <= 0.01 ng/mL [Mass/Vol]8.0 pg/mL0.0-20.0 [facility] CenterUrea nitrogen [Mass/volume] in Serum or Plasma Ordered By: Art Kirby on 98-56-1194Rrvk nitrogen [Mass/Vol]47 mg/dL7-25 [facility] CenterUrine appearanceOrdered By: Art Kirby on 44-92-5489Ylvtatymxb (U)ClearClearFCherrington HospitalUrine bacteria detection by automated methodOrdered By: Art Kirby on 06-18-2023 Bacteria Auto Ql (U)None seenNone SeenUniversity Hospitals Geauga Medical CenterUrine colorOrdered By: Art Kirby on 95-46-8170Mydoz (U)YellowYellowUniversity Hospitals Geauga Medical CenterUrine glucose measurement by automated test strip (mass/volume)Ordered By: Art Kirby on 75-36-5314Lcmibxd Auto test strip (U) [Mass/Vol]>=1000 mg/dLNormalUniversity Hospitals Geauga Medical CenterUrine hemoglobin detection by automated test stripOrdered By: Art Kirby on 47-59-3697Sktemwniik Auto test strip Ql (U)NegativeNegAvita Health System Galion HospitalUrine leukocyte esterase detection by automated test stripOrdered By: Art Kirby on 71-32-8219Yodsckdau esterase Auto test strip Ql (U) NegativeNegAvita Health System Galion HospitalUrine nitrite detection by automated test stripOrdered By: Art Kirby on 87-14-6357Fdnhwbo Auto test strip Ql (U)NegativeNegativeUniversity Hospitals Geauga Medical CenterUrobilinogen Auto test strip (U) [Mass/Vol]Ordered By: Art Kirby on 75-87-1891Emmokwioghvx (U) [Mass/Vol]Normal mg/dLNormalUniversity Hospitals Geauga Medical CenterWBC Auto (Bld) [#/Vol]Ordered By: Art Sawantarthy on 30-55-1379ACE (Bld) [#/Vol]6.7 10*3/uL 4.1-10.5FCherrington HospitalpH Auto test strip (U)Ordered By: Art Sawantarthy on 13-86-8016wL (U)1.020 [pH]1.001-1.030[facility] Medical CenterpH (U)5.5 [pH]5.0-9.0[facility] CenterCHEMISTRY Ordered By: Yahaira Limon on 21-02-4528Wyneuiy [Mass/Vol]332 mg/jHUfxp50 - 99 mg/dLDUNCAN REGION[facility] POC SubsectionComment on above:Result Comment: Notified RN/MDPOC UsernamRodger Hernandez Interpretation CodeFT POC SubsectionSodium [Moles/Vol]180769460462 mmol/LInvalid Interpretation CodeFT POC Subsection Sodium [Moles/Vol]618810327 mmol/LInvalid Interpretation CodeFT POC Subsection Glucose [Mass/Vol]341 mg/xEAwfa54 - 99 mg/dLDUNCAN REGIONAL [facility] [place] POC SubsectionComment on above: Result Comment: Notified RN/MDPOC UsernamSonu Steelevalid Interpretation Code [facility] POC SubsectionSodium [Moles/Vol]980771592897 mmol/LInvalid Interpretation CodeFTMC POC SubsectionSodium [Moles/Vol]298284165 mmol/LInvalid Interpretation CodeFT POC SubsectionGlucose [Mass/Vol]172 mg/eICnhu84 - 99 mg/dLDUNCAN REGIONAL [facility] [place] POC SubsectionComment on above:Result Comment: Notified RN/MDPOC UsernamORTIZ Steele Invalid Interpretation CodeFT POC SubsectionSodium [Moles/Vol]422152292950 mmol/LInvalid Interpretation CodeFTMC POC SubsectionSodium [Moles/Vol]270975042 mmol/LInvalid Interpretation [facility] POC SubsectionCHEMISTRYOrdered By: SYSTEM SYSTEM on 70-85-7341Bxans gap [Moles/Vol]11 mmol/LNormal6 - 16 mEq/LFTMC Remisol Calcium [Mass/Vol]8.5 mg/dLLow8.9 - 11.1 mg/dLDUNCAN REGIONAL [facility] [place] RemisolChloride [Moles/Vol] 105 mmol/VEbprcg704 - 111 mmol/LFTMC RemisolCO2 [Moles/Vol]28 mmol/IGnctzp36 - 31 mmol/LFTMC RemisolCreatinine [Mass/Vol]1.6 mg/dLHigh0.5 - 1.3 mg/dLDUNCAN REGIONAL [facility] [place] RemisolGFR/1.73 sq M.predicted among non-blacks MDRD (S/P/Bld) [Vol rate/Area]48 mL/min/1.73 m2Low>=59mL/min/1.73 m2DUNCAN [facility] Chem SComment on above:Interpretive Data: Chronic kidney disease could be indicated at eGFR's of less than 60 mL/min/1.73m2. Kidney failure is indicated at less than 15 mL/min/1.73m2.Glucose [Mass/Vol]165 mg/iHTrjkzw32 - 199 mg/dLDUNCAN REGIONAL [facility] [place] RemisolComment on above:Interpretive Data: If this glucose result represents a fasting glucose, interpretation should referto the following reference range: 55-99 mg/dLPotassium [Moles/Vol] 4.7 mmol/LNormal3.5 - 5.3 mmol/LFTMC RemisolSodium [Moles/Vol]139 mmol/LNormal 135 - 145 mmol/LFTMC RemisolUrea nitrogen [Mass/Vol]63 mg/dLHigh5 - 21 mg/dLDUNCAN [facility] [place] RemisolUrea nitrogen/Creatinine [Mass ratio]39 mg/neWdcm17 - 20[facility] Remisol CHEMISTRYOrdered By: SYSTEM SYSTEM on 69-78-7278Fbevk gap [Moles/Vol]7 mmol/L Normal6 - 16 mEq/LFTMC RemisolCalcium [Mass/Vol]8.0 mg/dLLow8.9 - 11.1 mg/dLFTMC RemisolChloride [Moles/Vol]106 mmol/XHuvekg468 - 111 mmol/LFTMC RemisolCO2 [Moles/Vol]30 mmol/LNwkndl75 - 31 mmol/LFTMC RemisolGFR/1.73 sq M.predicted among non-blacks MDRD (S/P/Bld) [Vol rate/Area]37 mL/min/1.73 m2Low >=59mL/min/1.73 m2FT Chem SComment on above:Interpretive Data: Chronic kidney disease could be indicated at eGFR's of less than 60 mL/min/1.73m2. Kidney failure is indicated at less than 15 mL/min/1.73m2.Glucose [Mass/Vol]78 mg/dL Nwciju15 - 199 mg/dLFT RemisolComment on above:Interpretive Data: If this glucose result represents a fasting glucose, interpretation should referto the following reference range: 55-99 mg/dLPotassium [Moles/Vol]5.1 mmol/LNormal3.5 - 5.3 mmol/LFTMC RemisolSodium [Moles/Vol]138 mmol/DAcuphd614 - 145 mmol/LFTMC RemisolUrea nitrogen [Mass/Vol]71 mg/dLHigh5 - 21 mg/dLFT[facility] RemisolUrea nitrogen/Creatinine [Mass ratio]36 mg/xuCklf24 - 20[facility] RemisolCHEMISTRYOrdered By: Liberty Hicks on 25-20-1925Ahnittnutb [Mass/Vol]2.0 mg/dLHigh0.5 - 1.3 mg/dLFTMC RemisolHEMATOLOGYOrdered By: SYSTEM SYSTEM on 93-16-1973Gppirktij/100 WBC (Bld)0.3 %Normal0.0 - 2.0 %[facility] HemeAutoSSBasophils/Leukocytes Auto (Bld) [Pure # fraction]0.0 E9/LNormal0.0 - 0.2 E9/LFTMC HemeAutoSSEosinophils/100 WBC (Bld)0.0 %Normal0.0 - 8.0 %[facility] HemeAutoSSEosinophils/Leukocytes Auto (Bld) [Pure # fraction]0.0 E9/LNormal0.0 - 0.5 E9/LFTMC HemeAutoSSLymphocytes/100 WBC (Bld)7.4 %Low14.0 - 50.0 %[facility] HemeAutoSSLymphocytes/Leukocytes Auto (Bld) [Pure # fraction]0.6 E9/LLow1.0 - 4.0 E9/LFTMC HemeAutoSSMonocytes/100 WBC (Bld)3.9 % Low4.0 - 14.0 %[facility] HemeAutoSSMonocytes/Leukocytes Auto (Bld) [Pure # fraction] 0.3 E9/LNormal0.2 - 1.0 E9/LFTMC HemeAutoSSNeutrophils/100 WBC (Bld)88.4 %High 36.0 - 75.0 %[facility] HemeAutoSSNeutrophils/Leukocytes Auto (Bld) [Pure # fraction] 6.9 E9/LNormal2.0 - 7.5 E9/LFTMC HemeAutoSSHEMATOLOGYOrdered By: Liberty Hicks on 26-63-1070Jkdwugdbyzi distribution width (RBC) [Ratio]15.0 %High10.9 - 14.2 %[facility] HemeAutoSSHematocrit (Bld) [Volume fraction]42.1 %Hesikr03.7 - 49.0 %[facility] HemeAutoSSHemoglobin (Bld) [Mass/Vol]13.3 g/dLLow13.5 - 17.5 gm/dLFTMC HemeAutoSSMCH (RBC) [Entitic mass]28.1 cqQmdwje67.0 - 34.0 pgFTMC HemeAutoSSMCHC (RBC) [Mass/Vol]31.6 g/fUIcdvoa45.4 - 36.0 gm/dLFTMC HemeAutoSSMCV (RBC) [Entitic vol]88.8 oXNuiakk90.0 - 100.0 fLFTMC HemeAutoSSPlatelet mean volume (Bld) [Entitic vol]7.3 fLNormal6.4 - 10.8 fLFTMC HemeAutoSSPlatelets (Bld) [#/Vol]225.0 E9/WCnymjc364.0 - 500.0 E9/LFTMC HemeAutoSSRBC (Bld) [#/Vol]4.7 E12/LNormal4.3 - 5.9 E12/LFTMC HemeAutoSSWBC corrected for nucl RBC Auto (Bld) [#/Vol]7.8 E9/LNormal4.0 - 11.0 E9/LFT[facility] HemeAutoSSCHEMISTRYOrdered By: SYSTEM SYSTEM on 77-89-4870Hreyv gap [Moles/Vol]9 mmol/LNormal6 - 16 mEq/LFT[facility] Remisol Calcium [Mass/Vol]8.3 mg/dLLow8.9 - 11.1 mg/dLFTMC RemisolChloride [Moles/Vol] 102 mmol/DKbuqdo954 - 111 mmol/LFT[facility] RemisolCO2 [Moles/Vol]30 mmol/KHnzvkl78 - 31 mmol/LFTMC RemisolCreatinine [Mass/Vol]2.4 mg/dLHigh0.5 - 1.3 mg/dLFTMC RemisolGFR/1.73 sq M.predicted among non-blacks MDRD (S/P/Bld) [Vol rate/Area]29 mL/min/1.73 m2Low>=59mL/min/1.73 m2FT Chem SComment on above:Interpretive Data: Chronic kidney disease could be indicated at eGFR's of less than 60 mL/min/1.73m2. Kidney failure is indicated at less than 15 mL/min/1.73m2.Glucose [Mass/Vol]139 mg/wRJewqkp18 - 199 mg/dLFTMC RemisolComment on above:Interpretive Data: If this glucose result represents a fasting glucose, interpretation should referto the following reference range: 55-99 mg/dLPotassium [Moles/Vol] 4.8 mmol/LNormal3.5 - 5.3 mmol/LFTMC RemisolSodium [Moles/Vol]136 mmol/LNormal 135 - 145 mmol/LFTMC RemisolUrea nitrogen [Mass/Vol]69 mg/dLHigh5 - 21 mg/dLFT[facility] RemisolUrea nitrogen/Creatinine [Mass ratio]29 mg/fwFlqj79 - 20[facility] RemisolCRP [Mass/Vol]0.7 mg/dLNormal<=1.9mg/dLFTMC RemisolCHEMISTRYOrdered By: Erin Wright on 54-32-6848Iamneeh Elph (U) [Mass fraction]97.0 mg/dLInvalid Interpretation CodeDUNCAN REGIONAL [facility] [place] RemisolComment on above:Interpretive Data: The reference range and other method performance specifications have not been established for this test; results should be integrated into the clinical context for interpretation. Creatinine (U) [Mass/Vol]93.4 mg/dLInvalid Interpretation CodeDUNCAN REGIONAL [facility] Remisol Comment on above:Interpretive Data: The reference range and other method performance specifications have not been established for this test; results should be integrated into the clinical context for interpretation.Sodium (U) [Moles/Vol]21 mmol/LInvalid Interpretation CodeDUNCAN REGIONAL HOSPITAL [facility] RemisolComment on above: Interpretive Data: The reference range and other method performance specifications have not been established for this test; results should be integrated into the clinical context for interpretation.CHEMISTRYOrdered By: Hudson Schmidt on 06-13-2023U Tscpblvssl805 mOsm/iiFdolfg97 - 1400 mOsm/kgMC Man UA SSHEMATOLOGYOrdered By: SYSTEM SYSTEM on 15-34-7111Tmkqrfsxm/100 WBC (Bld)0.3 %Normal0.0 - 2.0 %[facility] HemeAutoSSBasophils/Leukocytes Auto (Bld) [Pure # fraction]0.0 E9/LNormal0.0 - 0.2 E9/LFTMC HemeAutoSSEosinophils/100 WBC (Bld) 0.0 %Normal0.0 - 8.0 %[facility] HemeAutoSSEosinophils/Leukocytes Auto (Bld) [Pure # fraction]0.0 E9/LNormal0.0 - 0.5 E9/LFTMC HemeAutoSSLymphocytes/100 WBC (Bld)7.7 %Low14.0 - 50.0 %FT HemeAutoSSLymphocytes/Leukocytes Auto (Bld) [Pure # fraction]0.5 E9/LLow1.0 - 4.0 E9/LFTMC HemeAutoSSMonocytes/100 WBC (Bld)2.4 %Low 4.0 - 14.0 %[facility] HemeAutoSSMonocytes/Leukocytes Auto (Bld) [Pure # fraction]0.1 E9/LLow0.2 - 1.0 E9/LFTMC HemeAutoSSNeutrophils/100 WBC (Bld)89.6 %High36.0 - 75.0 %[facility] HemeAutoSSNeutrophils/Leukocytes Auto (Bld) [Pure # fraction]5.4 E9/L Normal2.0 - 7.5 E9/LFTMC HemeAutoSSHEMATOLOGYOrdered By: Hudson Rhodes on 60-47-9010Ufmddbxztxp distribution width (RBC) [Ratio]15.4 %High10.9 - 14.2 % [facility] HemeAutoSSHematocrit (Bld) [Volume fraction]44.4 %Wjvwdf75.7 - 49.0 %[facility] HemeAutoSSHemoglobin (Bld) [Mass/Vol]14.0 g/qDTzdsnq73.5 - 17.5 gm/dLFTMC HemeAutoSSMCH (RBC) [Entitic mass]28.4 opPbxxcq71.0 - 34.0 pgFTMC HemeAutoSSMCHC (RBC) [Mass/Vol]31.6 g/nEEomzcz68.4 - 36.0 gm/dLFTMC HemeAutoSSMCV (RBC) [Entitic vol]90.1 uOZpwxkd19.0 - 100.0 fLFTMC HemeAutoSSPlatelet mean volume (Bld) [Entitic vol]7.3 fLNormal6.4 - 10.8 fLFTMC HemeAutoSSPlatelets (Bld) [#/Vol]211.0 E9/SWduuyq735.0 - 500.0 E9/LFTMC HemeAutoSSRBC (Bld) [#/Vol]4.9 E12/LNormal4.3 - 5.9 E12/LFTMC HemeAutoSSWBC corrected for nucl RBC Auto (Bld) [#/Vol]6.0 E9/LNormal4.0 - 11.0 E9/LFTMC HemeAutoSSReference Laboratory Testing Ordered By: Jalil DomainUser on 02-61-6927Xsuqzskwxa protein B Ab Qn (S)AI Invalid Interpretation Code0.0-0.9AIFTMC SendOutsSSChromatin Ab QnAIInvalid Interpretation Code0.0-0.9AIFTMC SendOutsSSDNA double strand Ab Qn (S)33 [iU]/mL High0-9International_Unit/mLFTMC SendOutsSSComment on above:Result Comment: Negative <5 Equivocal 5 - 9 Positive >9Jo-1 extractable nuclear Ab Qn (S)AIInvalid Interpretation Code 0.0-0.9[facility] SendOutsSSNuclear Ab Ql (S)PositiveInvalid Interpretation Code NegativeDUNCAN REGIONAL [facility] SendOutsSSComment on above:Result Comment: Performed at: [address] [phone] [id number] PhD Porras VincentRibonucleoprotein extractable nuclear Ab Qn (S) AIInvalid Interpretation Code0.0-0.9[facility] SendOutsSSSCL-70 extractable nuclear Ab Qn (S)AIInvalid Interpretation Code0.0-0.9[facility] SendOutsSSSee below:Comment Invalid Interpretation CodeFT SendOutsSSComment on above:Result Comment: Pattern Potential Disease Association Homogeneous Systemic Lupus Erythematosus, Drug Induced Systemic Lupus Erythematosus, Chronic Autoimmune hepatitis, Juvenile Idiopathic Arthritis Speckled Sjogren Syndrome, Systemic Lupus Erythematosus, Subacute Cutaneous Lupus, Lupus, Congenital Heart Block, Mixed Connective Tissue Disease, Scleroderma-diffuse, Scleroderma-Autoimmune Myositis Overlap Syndrome, Systemic Lupus Uqwaqrxkzcgru-Uyykylrvhyi-Zzcxwepoeg Myositis Overlap Syndrome, Systemic Autoimmune Rheumatic Disease, [...] Cytopenias, Linear Scleroderma, Antiphospholipid Syndrome Performed at: [address] [phone] [id number] PhD Vern VincentSjogrens syndrome-A extractable nuclear Ab Qn (S)AIInvalid Interpretation Code0.0-0.9ASutter California Pacific Medical CenterSjogrens syndrome-B extractable nuclear Ab Qn (S)AIInvalid Interpretation Code0.0-0.9[facility] SendOutsSSSmith extractable nuclear Ab Qn (S)AIInvalid Interpretation Code 0.0-0.9[facility] SendOutsSSURINALYSISOrdered By: Hudson Schmidt on 06-13-2023 Bacteria LM Ql (Urine sed)Trace /HPFNormalTrace/HPFDUNCAN REGIONAL HOSPITAL [facility] UA Auto SSBilirubin Ql (U)Negative (06/13/23 10:09 AM)NormalNegativeDUNCAN REGIONAL [facility]OSP[facility] UA Auto SSClarity (U)Clear (06/13/23 10:09 AM)NormalClearFBEAVER [facility] UA Auto SSColor (U)Yellow (06/13/23 10:09 AM)NormalYellowDUNCAN REGIONAL HOSPITAL [facility] [place] UA Auto SSEpithelial cells.squamous LM.HPF (Urine sed) [#/Area]0-2 /HPFNormal0-2/HPFDUNCAN REGIONAL HOSPITAL – [place] UA Auto SSGlucose Test strip (U) [Mass/Vol]3+ *ABN* (06/13/23 10:09 AM)Invalid Interpretation CodeNegativeDUNCAN REGIONAL [facility]OSPITAL [facility] [place] UA Auto SSHemoglobin Ql (U)Negative (06/13/23 10:09 AM)NormalNegativeDUNCAN REGIONAL [facility]OSP[facility] [place] UA Auto SSKetones (U) [Mass/Vol]Negative (06/13/23 10:09 AM)NormalNegativeDUNCAN REGIONAL [facility]OSP[facility] [place] UA Auto SSLithium.plasma/Enlow.RBC (Bld) [Mass ratio]0-3 /HPFNormal0-3/HPFDUNCAN REGIONAL HOSPITAL [facility] [place] UA Auto SSMucus Ql (Urine sed)Trace (06/13/23 10:09 AM)NormalDUNCAN REGIONAL HOSPITAL [facility] [place] UA Auto SSNitrite Ql (U)Negative (06/13/23 10:09 AM)NormalNegativeDUNCAN REGIONAL [facility] [place] UA Auto SSpH (U)5.5 *NA* (06/13/23 10:09 AM)Invalid Interpretation Code5.0 - 9.0[facility] UA Auto SSProtein (U) [Mass/Vol]2+ *ABN* (06/13/23 10:09 AM)Invalid Interpretation CodeNegativeDUNCAN REGIONAL [facility]OSPITAL [facility] [place] UA Auto SSSpecific gravity (U) [Rel density]1.025 *NA* (06/13/23 10:09 AM)Invalid Interpretation Code1.005 - 1.030[facility] UA Auto SSUA Spec DescClean Catch (06/13/23 10:09 AM)NormalDUNCAN REGIONAL HOSPITAL [facility] [place] UA Auto SSUrobilinogen Qn (U)0.0327093 {Itz'U}/dLNormal0.0 - 1.0 EU/dLDUNCAN REGIONAL HOSPITAL [facility] [place] UA Auto SSWBC Auto Ql (U)Negative (06/13/23 10:09 AM)NormalNegativeDUNCAN REGIONAL [facility] [place] UA Auto SSWBC casts LM.LPF (Urine sed) [#/Area]4-10 (06/13/23 10:09 AM)NormalDUNCAN REGIONAL HOSPITAL [facility] [place] UA Auto SSWBC LM.HPF (Urine sed) [#/Area]0-5 /HPF Normal0-5/HPFFTMC UA Auto SSCHEMISTRYOrdered By: SYSTEM SYSTEM on 06-12-2023 Procalcitonin0.07 ng/mLNormal0.00 - 0.50 ng/mLFT RemisolComment on above: Interpretive Data: <0.5 ng/mL Low risk of severe sepsis [...] to retest PCT within 6 to 24 hours.CHEMISTRYOrdered By: SYSTEM SYSTEM on 84-13-7730Grqsujfu I.cardiac [Mass/Vol]9.10 pg/mLLow15.90 - 38.40 pg/mLFT RemisolComment on above:Interpretive Data: The 95% CI (Confidence Interval) PPV (Positive Predictive Value) for myocardial infarction in females is 38 pg/mL, in males 51 pg/mL. The results should be used in conjunction withclinical conditions of myocardial infarction. (Access High Sensitivity Troponin I Instructions For Use, Platypi, March 2018)Magnesium [Mass/Vol]2.1 mg/dLNormal1.3 - 2.4 mg/dLFT Remisol Troponin I.cardiac [Mass/Vol]9.20 pg/mLLow15.90 - 38.40 pg/mLFT RemisolComment on above:Interpretive Data: The 95% CI (Confidence Interval) PPV (Positive Predictive Value) for myocardial infarction in females is 38 pg/mL, in males 51 pg/mL. The results should be used in conjunction withclinical conditions of myocardial infarction. (Access High Sensitivity Troponin I Instructions For Use, Platypi, March 2018)Troponin I.cardiac [Mass/Vol]7.00 pg/mLLow15.90 - 38.40 pg/mLFT RemisolComment on above:Interpretive Data: The 95% CI (Confidence Interval) PPV (Positive Predictive Value) for myocardial infarction in females is 38 pg/mL, in males 51 pg/mL. The results should be used in conjunction withclinical conditions of myocardial infarction. (Access High Sensitivity Troponin I Instructions For Use, Opal Shirlene, March 2018)Lactate [Mass/Vol]1.7 mmol/LNormal0.5 - 2.2 mmol/LFC Remisol CHEMISTRYOrdered By: Sasha Arroyo on 68-00-4248Gkgutpymgtr peptide B (Bld) [Mass/Vol]121 pg/mLHigh5 - 80 pg/mLDUNCAN REGIONAL HOSPITAL [facility] HemeManSSCOAGULATIONOrdered By: Liberty Quinn on 65-84-7126lTEU Coag (PPP) [Time]33.9 kIcroxg35.1 - 36.5 second(s)[facility] Auto CoagComment on above:Interpretive Data: Parameter 15 days - 4 weeks 1 - [...] the same coagulation reagent and instrumentation as [facility]. Currently there are no coagulation studies available worldwide for children to 14 days, andno normal ranges. Heparin therapeutic range (represented by Anti-Factor Xa activity of 0.2 - 0.4 U/mL) corresponds to PTT of 56.6 - 109.0 sec.INR Coag (PPP) [Relative time]1.0 {INR}Invalid Interpretation CodeDUNCAN REGIONAL HOSPITAL [facility] [place] Auto CoagComment on above:Interpretive Data: INR results are specifically intended to assess patients stabilized on long-term Anticoagulation therapy suggested INR s Less Intensive Anticoagulation 2.0 3.0 Conventional Range 3.0 4.5PT Coag (PPP) [Time]11.2 sNormal9.4 - 12.5 second(s) [facility] Auto CoagComment on above:Interpretive Data: 15 days - 4 weeks 1 - [...] the same coagulation reagent and instrumentation as [facility]. Currently there are no coagulation studies available worldwide for children to 14 days, andno normal ranges.FT Blood GasesOrdered By: Primo Tubbs on 06-11-2023/A Ratio Art37.10 %Normal>=0.80%[facility] Resp Auto SSAaDO2 Art98.0 mm[Hg]High5.0 - 15.0 mmHg [facility] Resp Auto SSAllens TestPositive (06/11/23 2:22 PM)NormalFTMC Resp Auto SSBase Excess Arterial5.1 mmol/LNormal >=2.8mmol/LFTMC Resp Auto SScCa2+ Art4.66 mg/dLNormal4.40 - 5.30 mg/dL[facility] Resp Auto SScCl- Bks267.0 mmol/SYyfyqn965.0 - 111.0 mmol/L[facility] Resp Auto SScGlu Art57 mg/oLZrywjt95 - 99 mg/dLFT[facility] Resp Auto SScK+ Art4.7 mmol/LNormal3.5 - 5.3 mmol/L[facility] Resp Auto SScLac Art1.3 mmol/LNormal0.5 - 2.2 mmol/L[facility] Resp Auto SS dental internship+ Uof469.0 mmol/INhedmm438.0 - 145.0 mmol/L[facility] Resp Auto SSDeviceCannula (06/11/23 2:22 PM)Normal[facility] Resp Auto SSDrawn bySASInvalid Interpretation Code [facility] Resp Auto SSFCOHb Art2.2 %Normal1.5 - 4.9 %[facility] Resp Auto SSComment on above:Interpretive Data: Reference range Nonsmoker <1.5% Smoker <5.0% Heavy Smoker <9.0%FMetHb Art0.1 %Normal0.0 - 1.9 %[facility] Resp Auto TXAP3Ph Art88.7 %Low93.0 - 100.0 %[facility] Resp Auto SSHCO3 (Bld) [Moles/Vol]28.8 mmol/LHigh22.0 - 26.0 mmol/LFT[facility] Resp Auto SSHemoglobin (Bld) [Mass/Vol]14.5 g/zGTgduxs36.0 - 17.0 gm/dLFT[facility] Resp Auto SSP CO2 Rqnwiguf81.5 mm[Hg]High35.0 - 45.0 mmHg[facility] Resp Auto SSP O2 Gyadadmg21.8 mm[Hg]Low80.0 - 100.0 mmHg[facility] Resp Auto SSpH (Bld)7.348 [pH]Low7.350 - 7.450[facility] Resp Auto SSSample SiteL Radial (06/11/23 2:22 PM)Normal[facility] Resp Auto SSSample TypeArterial Draw (06/11/23 2:22 PM)Normal[facility] Resp Auto SSSodium [Moles/Vol]32 mmol/LInvalid Interpretation CodeFT[facility] Resp Auto SSHEMATOLOGYOrdered By: SYSTEM SYSTEM on [id number]/100 WBC (Bld)1.1 %Normal0.0 - 2.0 %[facility] HemeAutoSS Basophils/Leukocytes Auto (Bld) [Pure # fraction]0.1 E9/LNormal0.0 - 0.2 E9/L [facility] HemeAutoSSEosinophils/100 WBC (Bld)3.4 %Normal0.0 - 8.0 %[facility] HemeAutoSS Eosinophils/Leukocytes Auto (Bld) [Pure # fraction]0.2 E9/LNormal0.0 - 0.5 E9/L [facility] HemeAutoSSLymphocytes/100 WBC (Bld)20.7 %Dlcgmc19.0 - 50.0 %[facility] HemeAutoSS Lymphocytes/Leukocytes Auto (Bld) [Pure # fraction]1.5 E9/LNormal1.0 - 4.0 E9/L [facility] HemeAutoSSMonocytes/100 WBC (Bld)11.6 %Normal4.0 - 14.0 %[facility] HemeAutoSS Monocytes/Leukocytes Auto (Bld) [Pure # fraction]0.8 E9/LNormal0.2 - 1.0 E9/L [facility] HemeAutoSSNeutrophils/100 WBC (Bld)63.2 %Sqnqfa15.0 - 75.0 %[facility] HemeAutoSS Neutrophils/Leukocytes Auto (Bld) [Pure # fraction]4.5 E9/LNormal2.0 - 7.5 E9/L [facility] HemeAutoSSHEMATOLOGYOrdered By: Sasha Arroyo on 95-55-5703Eebcumbrkpr distribution width (RBC) [Ratio]15.0 %High10.9 - 14.2 %[facility] HemeAutoSSHematocrit (Bld) [Volume fraction]45.4 %Gbvnqt56.7 - 49.0 %[facility] HemeAutoSSHemoglobin (Bld) [Mass/Vol]14.4 g/eLOvsdvp33.5 - 17.5 gm/dLFTMC HemeAutoSSMCH (RBC) [Entitic mass]28.3 yyPysshh07.0 - 34.0 pgFTMC HemeAutoSSMCHC (RBC) [Mass/Vol]31.8 g/dL Nxbnda83.4 - 36.0 gm/dLFTMC HemeAutoSSMCV (RBC) [Entitic vol]88.9 iUUqlxwt13.0 - 100.0 fLFTMC HemeAutoSSPlatelet mean volume (Bld) [Entitic vol]7.2 fLNormal6.4 - 10.8 fLFTMC HemeAutoSSPlatelets (Bld) [#/Vol]233.0 E9/OAjeaio532.0 - 500.0 E9/L [facility] HemeAutoSSRBC (Bld) [#/Vol]5.1 E12/LNormal4.3 - 5.9 E12/LFTMC HemeAutoSSWBC corrected for nucl RBC Auto (Bld) [#/Vol]7.1 E9/LNormal4.0 - 11.0 E9/LFTMC HemeAutoSSMICRO OTHER TESTSOrdered By: Liberty Quinn on 81-40-1703Ytina COV Int NEG CtlPass (06/11/23 2:16 PM)NormalFT Man SeroRapid COV Int POS CtlPass (06/11/23 2:16 PM)NormalFT Man SeroSARS-CoV+SARS-CoV-2 (COVID-19) Ag IA.rapid Ql (Resp)Not Detected (06/11/23 2:16 PM)NormalNot DetectedDUNCAN REGIONAL [facility] [place] Man SeroComment on above:Interpretive Data: The BD Veritor System for Rapid Detection of SARS-CoV-2 is a chromatographic digital immunoassay intended for the direct and qualitative detection of SARS-CoV-2 nucleocapsid antigens in nasal swabs from individuals who are suspected of COVID-19 by their healthcare provider withinthe first five days of the onset of [...] of proteins from SARS-CoV-2, not for any otherviruses or pathogens; and, in the [place], this test is only authorized for the duration of the declaration that circumstances exist justifying the authorization of emergency use of in vitro diagnostics for detection and/or diagnosis of the virus that causes COVID-19 under Section 564(b)(1) of the Act,21 U.S.C. 360bbb-3(b)(1), unless the authorization is terminated or revoked sooner.No Panel InformationOrdered By: ANGPROCESSSERHOLY CROSS [facility]PITAL MICROBIOLOGY on 45-46-8908Tflef Culture CharcoalNo growth at 4 days. Final to follow at 7 days.[facility] CampusBlood Culture CharcoalNo growth at 4 days. Final to follow at 7 days.[facility] CampusCHEMISTRYOrdered By: Tatyana Long on 80-97-1571RbR3d (Bld) [Mass fraction]11.0 %High<=5.9%[facility] ChemAutoSSCHEMISTRYOrdered By: Lab ROPUser on 01-61-9985Htqkgqc [Mass/Vol]mg/dL Invalid Interpretation Code55 - 99 mg/dLFT[facility] POC SubsectionComment on above: Result Comment: Notified RN/MDPOC Device [id number] Interpretation CodeFTMC POC SubsectionPOC User [id number] Interpretation CodeFT[facility] POC SubsectionPOC UsernamKathi Cutlervalid Interpretation CodeFT[facility] POC SubsectionCHEMISTRYOrdered By: SYSTEM SYSTEM on 06-23-7143Lztkzvfp I.cardiac [Mass/Vol]9.90 pg/mLLow15.90 - 38.40 pg/mLFTMC RemisolAnion gap [Moles/Vol]16 mmol/LNormal6 - 16 mEq/LFTMC RemisolCalcium [Mass/Vol]9.4 mg/dLNormal8.9 - 11.1 mg/dLFT[facility] RemisolChloride [Moles/Vol]89 mmol/ONlp439 - 111 mmol/LFTMC RemisolCO2 [Moles/Vol]24 mmol/HVlsufc52 - 31 mmol/LFTMC RemisolCreatinine [Mass/Vol]1.7 mg/dLHigh0.5 - 1.3 mg/dLFTMC RemisolGFR/1.73 sq M.predicted among blacks MDRD (S/P/Bld) [Vol rate/Area]50 mL/min/1.73 m2Low>=59mL/min/1.73 m2FT Chem S GFR/1.73 sq M.predicted among non-blacks MDRD (S/P/Bld) [Vol rate/Area]41 mL/min/1.73 m2Low>=59mL/min/1.73 m2FT Chem SGlucose [Mass/Vol]897 mg/dLInvalid Interpretation Code55 - 199 mg/dLFTMC RemisolComment on above:Result Comment: Critical Result verified by repeat analysis\Critical Result [id number] Called to MARILEE MAHMOOD AT by ERIN WRIGHT And Read Back For Confirmation at: 08/04/2022 15:01:08Potassium [Moles/Vol]5.1 mmol/LNormal3.5 - 5.3 mmol/LFTMC RemisolSodium [Moles/Vol]124 mmol/OQaq262 - 145 mmol/LFTMC RemisolTSH Qn1.07 m[IU]/LNormal0.34 - 5.60 mcIU/mLFTMC RemisolUrea nitrogen [Mass/Vol]52 mg/dLHigh 5 - 21 mg/dLFTMC RemisolUrea nitrogen/Creatinine [Mass ratio]31 mg/acZrvb98 - 20 [facility] RemisolCHEMISTRYOrdered By: Reid Pastor on 19-58-3655Ysvbupsy I.cardiac [Mass/Vol]9.10 pg/mLLow15.90 - 38.40 pg/mLFTMC RemisolHEMATOLOGYOrdered By: SYSTEM SYSTEM on 44-16-1027Yjcaszsfe/100 WBC (Bld)1.0 %Normal0.0 - 2.0 %[facility] HemeAutoSSBasophils/Leukocytes Auto (Bld) [Pure # fraction]0.1 E9/LNormal0.0 - 0.2 E9/LFTMC HemeAutoSSEosinophils/100 WBC (Bld)2.6 %Normal0.0 - 8.0 %[facility] HemeAutoSSEosinophils/Leukocytes Auto (Bld) [Pure # fraction]0.2 E9/LNormal0.0 - 0.5 E9/LFTMC HemeAutoSSLymphocytes/100 WBC (Bld)18.2 %Btmqjw05.0 - 50.0 %[facility] HemeAutoSSLymphocytes/Leukocytes Auto (Bld) [Pure # fraction]1.1 E9/LNormal1.0 - 4.0 E9/L[facility] HemeAutoSSMonocytes/100 WBC (Bld)8.1 %Normal4.0 - 14.0 %[facility] HemeAutoSSMonocytes/Leukocytes Auto (Bld) [Pure # fraction]0.5 E9/LNormal0.2 - 1.0 E9/LFT[facility] HemeAutoSSNeutrophils/100 WBC (Bld)70.1 %Tkghmq20.0 - 75.0 %[facility] HemeAutoSSNeutrophils/Leukocytes Auto (Bld) [Pure # fraction]4.2 E9/LNormal2.0 - 7.5 E9/LFT[facility] HemeAutoSSHEMATOLOGYOrdered By: Alban Moran on 08-04-2022 Erythrocyte distribution width (RBC) [Ratio]13.2 %Ebanpf76.9 - 14.2 %[facility] HemeAutoSSHematocrit (Bld) [Volume fraction]47.6 %Rvribp18.7 - 49.0 %[facility] HemeAutoSSHemoglobin (Bld) [Mass/Vol]15.9 g/wCKxnhlb25.5 - 17.5 gm/dLFTMC HemeAutoSSMCH (RBC) [Entitic mass]30.9 xdDeglba52.0 - 34.0 pgFTMC HemeAutoSSMCHC (RBC) [Mass/Vol]33.4 g/lVXlncpl43.4 - 36.0 gm/dLFTMC HemeAutoSSMCV (RBC) [Entitic vol]92.5 uRMismfh22.0 - 100.0 fLFTMC HemeAutoSSPlatelet mean volume (Bld) [Entitic vol]8.2 fLNormal6.4 - 10.8 fLFTMC HemeAutoSSPlatelets (Bld) [#/Vol]193.0 E9/WSpkkld746.0 - 500.0 E9/L[facility] HemeAutoSSRBC (Bld) [#/Vol]5.2 E12/LNormal4.3 - 5.9 E12/L[facility] HemeAutoSSWBC corrected for nucl RBC Auto (Bld) [#/Vol]6.0 E9/LNormal4.0 - 11.0 E9/L[facility] HemeAutoSSCHEMISTRYOrdered By: Lab CLAYTONUser on 33-38-4203Wmzyvwy [Mass/Vol]324 mg/hNVmqt64 - 99 mg/dLFTMC POC SubsectionComment on above:Result Comment: Notified RN/MDPOC Device SN [id number] Interpretation CodeFT[facility] POC SubsectionPOC User [id number] Invalid Interpretation CodeFTMC POC SubsectionPOC UsernamHUDSON Mederos Invalid Interpretation CodeFT[facility] POC SubsectionCHEMISTRYOrdered By: Lab ROPUser on 86-02-3616Xyqwxmq [Mass/Vol]395 mg/cGIhyp49 - 99 mg/dLFTMC POC Subsection Comment on above:Result Comment: Notified RN/MDPOC Device [id number] Interpretation CodeFT POC SubsectionPOC User [id number] Interpretation CodeFT POC SubsectionPO UsernameFRIPRIYANKA GARCIAInvalid Interpretation Code [facility] POC SubsectionCHEMISTRYOrdered By: SYSTEM SYSTEM on 80-26-1437Hdpkalq [Mass/Vol]3.7 g/dLNormal3.3 - 5.0 gm/dLFT[facility] RemisolAlbumin/Globulin [Mass ratio] 1.1 {ratio}Normal1.1 - 2.2[facility] RemisolALP [Catalytic activity/Vol]110 [iU]/dHigh 21 - 98 Int._Unit/LFTMC RemisolALT No additional P-5'-P [Catalytic activity/Vol] 18 [iU]/dNormal6 - 46 Int._Unit/LFT[facility] RemisolAnion gap [Moles/Vol]14 mmol/L Normal6 - 16 mEq/L[facility] RemisolAST [Catalytic activity/Vol]19 [iU]/dNormal5 - 43 Int._Unit/LFT[facility] RemisolBilirubin [Mass/Vol]0.7 mg/dLNormal0.0 - 1.1 mg/dLFTMC RemisolBilirubin.direct [Mass/Vol]0.2 mg/dLNormal0.1 - 0.4 mg/dLFT[facility] Remisol Bilirubin.indirect [Mass or moles/Vol]0.5 mg/dLNormal0.1 - 0.9 mg/dLFT[facility] Remisol Calcium [Mass/Vol]9.0 mg/dLNormal8.9 - 11.1 mg/dLFTMC RemisolChloride [Moles/Vol]96 mmol/GVco313 - 111 mmol/LFTMC RemisolCO2 [Moles/Vol]25 mmol/L Doegpi03 - 31 mmol/LFTMC RemisolCreatinine [Mass/Vol]1.5 mg/dLHigh0.5 - 1.3 mg/dLFT[facility] RemisolGFR/1.73 sq M.predicted among blacks MDRD (S/P/Bld) [Vol rate/Area]57 mL/min/1.73 m2Low>=59mL/min/1.73 m2FT Chem SGFR/1.73 sq M.predicted among non-blacks MDRD (S/P/Bld) [Vol rate/Area]47 mL/min/1.73 m2Low >=59mL/min/1.73 m2FT Chem SGlobulin (S) [Mass/Vol]3.4 g/dLNormal1.4 - 4.0 gm/dLFT[facility] RemisolGlucose [Mass/Vol]411 mg/jOOzhy42 - 199 mg/dLFT[facility] Remisol Potassium [Moles/Vol]4.4 mmol/LNormal3.5 - 5.3 mmol/LFTMC RemisolProtein [Mass/Vol]7.1 g/dLNormal6.0 - 7.8 gm/dLFT[facility] RemisolSodium [Moles/Vol]131 mmol/L Mqn570 - 145 mmol/LFTMC RemisolUrea nitrogen [Mass/Vol]37 mg/dLHigh5 - 21 mg/dL [facility] RemisolUrea nitrogen/Creatinine [Mass ratio]25 mg/cdRqxy65 - 20[facility] Remisol CHEMISTRYOrdered By: Reid Pastor on 25-92-9909Ukrq hydroxybutyrate [Moles/Vol] 0.12 mmol/LNormal0.02 - 0.27 mmol/LFTMC RemisolHEMATOLOGYOrdered By: SYSTEM SYSTEM on 54-66-8415Lxgqovuik/100 WBC (Bld)0.7 %Normal0.0 - 2.0 %[facility] HemeAutoSS Basophils/Leukocytes Auto (Bld) [Pure # fraction]0.0 E9/LNormal0.0 - 0.2 E9/L [facility] HemeAutoSSEosinophils/100 WBC (Bld)3.4 %Normal0.0 - 8.0 %[facility] HemeAutoSS Eosinophils/Leukocytes Auto (Bld) [Pure # fraction]0.2 E9/LNormal0.0 - 0.5 E9/L [facility] HemeAutoSSLymphocytes/100 WBC (Bld)9.7 %Low14.0 - 50.0 %[facility] HemeAutoSS Lymphocytes/Leukocytes Auto (Bld) [Pure # fraction]0.5 E9/LLow1.0 - 4.0 E9/LFT[facility] HemeAutoSSMonocytes/100 WBC (Bld)11.2 %Normal4.0 - 14.0 %[facility] HemeAutoSS Monocytes/Leukocytes Auto (Bld) [Pure # fraction]0.5 E9/LNormal0.2 - 1.0 E9/L [facility] HemeAutoSSNeutrophils/100 WBC (Bld)75.0 %Myuxyi25.0 - 75.0 %[facility] HemeAutoSS Neutrophils/Leukocytes Auto (Bld) [Pure # fraction]3.7 E9/LNormal2.0 - 7.5 E9/L [facility] HemeAutoSSHEMATOLOGYOrdered By: Sandra Chris on 50-85-5506Wsbuppkizgc distribution width (RBC) [Ratio]13.4 %Bizocm53.9 - 14.2 %[facility] HemeAutoSS Hematocrit (Bld) [Volume fraction]43.7 %Uynsgw92.7 - 49.0 %[facility] HemeAutoSS Hemoglobin (Bld) [Mass/Vol]14.9 g/vRXymgrf85.5 - 17.5 gm/dLFTMC HemeAutoSSMCH (RBC) [Entitic mass]30.8 ibNmgrui95.0 - 34.0 pgFTMC HemeAutoSSMCHC (RBC) [Mass/Vol]34.1 g/eSIuoiqp85.4 - 36.0 gm/dLFT[facility] HemeAutoSSMCV (RBC) [Entitic vol] 90.2 fQFnrwmo50.0 - 100.0 fLFTMC HemeAutoSSPlatelet mean volume (Bld) [Entitic vol]7.8 fLNormal6.4 - 10.8 fLFTMC HemeAutoSSPlatelets (Bld) [#/Vol]186.0 E9/L Qnfwsb401.0 - 500.0 E9/LFT[facility] HemeAutoSSRBC (Bld) [#/Vol]4.8 E12/LNormal4.3 - 5.9 E12/LFT[facility] HemeAutoSSWBC corrected for nucl RBC Auto (Bld) [#/Vol]4.9 E9/LNormal 4.0 - 11.0 E9/L[facility] HemeAutoSSMICRO OTHER TESTSOrdered By: Sandra Chris on 06-95-8456Aobfrkezuj A AgNegative (03/08/22 11:09 PM)NormalNegativeDUNCAN [facility] [place] Man SeroInfluenzae B AgNegative (03/08/22 11:09 PM)NormalNegativeDUNCAN REGIONAL [facility] [place] Man SeroRapid COV Int NEG CtlPass (03/08/22 11:09 PM)NormalFT Man SeroRapid COV Int POS CtlPass (03/08/22 11:09 PM)NormalDUNCAN REGIONAL [facility]OSP[facility] [place] Man SeroSARS-CoV+SARS-CoV-2 (COVID-19) Ag IA.rapid Ql (Resp)Detected 3 *ABN* (03/08/22 11:09 PM)Invalid Interpretation CodeNot DetectedFT Man SeroComment on above:Result Comment: Results Called To Evelia Moreno By SHIRA And Read Back For Confirmation On 03/08/2022 23:49:41 EDT Results Verified By Repeat AnalysisURINALYSISOrdered By: Reid Pastor on 23-64-6796Yhszyqukw Ql (U)Negative (03/08/22 11:09 PM)NormalNegativeDUNCAN [facility] [place] UA Auto SSClarity (U)Clear (03/08/22 11:09 PM)NormalClearFBEAVER [facility] UA Auto SSColor (U)Straw *ABN* (03/08/22 11:09 PM)Invalid Interpretation CodeYellowDUNCAN REGIONAL HOSPITAL [facility] [place] UA Auto SSEpithelial cells.squamous LM.HPF (Urine sed) [#/Area]0-2 /HPFNormal0-2/HPFDUNCAN REGIONAL HOSPITAL – [place] UA Auto SS Glucose Test strip (U) [Mass/Vol]Trace *ABN* (03/08/22 11:09 PM)Invalid Interpretation CodeNegativeDUNCAN REGIONAL HOSPITAL [facility] [place] UA Auto SSHemoglobin Ql (U)1+ *ABN* (03/08/22 11:09 PM)Invalid Interpretation CodeNegativeDUNCAN REGIONAL [facility]OSP[facility] [place] UA Auto SSKetones (U) [Mass/Vol]Negative (03/08/22 11:09 PM)NormalNegativeDUNCAN REGIONAL [facility] [place] UA Auto SSLithium.plasma/Enlow.RBC (Bld) [Mass ratio]0-3 /HPFNormal0-3/HPFDUNCAN REGIONAL HOSPITAL [facility] [place] UA Auto SSNitrite Ql (U)Negative (03/08/22 11:09 PM)NormalNegativeDUNCAN [facility] [place] UA Auto SSpH (U)6.0 *NA* (03/08/22 11:09 PM)Invalid Interpretation Code5.0 - 9.0[facility] UA Auto SSProtein (U) [Mass/Vol]2+ *ABN* (03/08/22 11:09 PM)Invalid Interpretation CodeNegativeDUNCAN REGIONAL [facility] [place] UA Auto SSSpecific gravity (U) [Rel density]1.010 *NA* (03/08/22 11:09 PM)Invalid Interpretation Code1.005 - 1.030[facility] UA Auto SSUA Spec DescClean Catch (03/08/22 11:09 PM)NormalDUNCAN REGIONAL HOSPITAL [facility] [place] UA Auto SSUrobilinogen Qn (U)0.1909113 {Itz'U}/dLNormal0.0 - 1.0 EU/dLDUNCAN REGIONAL HOSPITAL [facility] [place] UA Auto SSWBC Auto Ql (U)Negative (03/08/22 11:09 PM)NormalNegativeDUNCAN [facility] [place] UA Auto SSWBC LM.HPF (Urine sed) [#/Area]0- 5 /HPFNormal0-5/HPFDUNCAN REGIONAL HOSPITAL [facility] [place] UA Auto SS Vital Signs Date TimeVital SignValuePerforming ZyfwaaoosRymbsxyl83-37-7425 13:20-0400Body dpubig498.3 Naila Sweeney MD Work Phone: [phone] HospitalCncaefyvdi84-26-0724 13:20-0400Body mass index (BMI) [Ratio]29.01 kg/e6RwmmcKayla Sweeney MD Work Phone: [phone] [place], [place] [address]Tfislrhbbj79-41-8470 13:20-0400Body zshdeu86.35 kgKayla Sweeney MD Work Phone: [phone] [place], [place] [address]Xnhjszblvs84-48-2500 13:20-0400Diastolic blood fhmtulaw38 mm[Hg]Kayla Sweeney MD Work Phone: [phone] HospitalFglzzzikwv69-15-2254 13:20-0400Heart rate72 /min Kayla Sweeney MD Work Phone: [place] [address]Wwbrapotzp16-69-6987 13:20-0400Respiratory rate16 /minKayla Sweeney MD Work Phone: [place] [address]Bdixmauboh05-22-6910 13:20-8553RyV3% (BldA) [Mass fraction]98 %Kayla Sweeney MD Work Phone: [facility] HospitalKogfcvowgo13-56-1860 13:20-0400Systolic blood gkncbtyb805 mm[Hg]Kayla Sweeney MD Work Phone: [facility] HospitalBmilbuwrgh06-99-9146 11:28-0400Body daexgu944.3 cmMounika Brooke MD Work Phone: [facility] HospitalLvwhdqhwnd71-94-2829 11:28-0400Body mass index (BMI) [Ratio]36.79 kg/o3VhuxvMounika Brooke MD Work Phone: [facility] HospitalGetkqqftyb72-99-3066 11:28-0400Body temperature 97.2 [degF]Mounika Brooke MD Work Phone: [facility] HospitalJoizcespas69-63-0887 11:28-0400Body vuioub976.66 kgMounika Brooke MD Work Phone: [facility] HospitalYbqnnuomre51-70-0788 11:28-0400Diastolic blood actzyfsd39 mm[Hg]Mounika Brooke MD Work Phone: [facility] HospitalYwvclnnnmm80-92-2090 11:28-0400Heart rate89 /min Mounika Brooke MD Work Phone: [facility] HospitalStpozdckpp33-98-1860 11:28-9289TvT1% (BldA) [Mass fraction]95 %Mounika Brooke MD Work Phone: [facility] HospitalSjlnjrjrei35-04-7857 11:28-0400Systolic blood bygiurkt945 mm[Hg]Mounika Brooke MD Work Phone: [facility] HospitalRkzpyzjfmx10-16-3846 12:30-0400Body fujygh685.3 Margarette Brooke MD Work Phone: [facility] HospitalPltgfjxlkz79-81-9036 12:30-0400Body mass index (BMI) [Ratio]38.02 kg/q3EebkuMounika Brooke MD Work Phone: [facility] HospitalCzjahnselm17-12-2835 12:30-0400Body temperature 98.4 [degF]Mounika Brooke MD Work Phone: [facility] HospitalKfoiteklxc97-77-1810 12:30-0400Body ulqsek464.65 kgMounika Brooke MD Work Phone: [facility] HospitalUcgtjykbgu47-16-4218 12:30-0400Diastolic blood mm[Hg]Mounika Brooke MD Work Phone: [facility] HospitalNkwxqkywcp02-10-8767 12:30-0400Heart rate80 /min Mounika Brooke MD Work Phone: [facility] HospitalKllzvcshoy69-50-9824 12:30-4058ZjX0% (BldA) [Mass fraction]92 %Mounika Brooke MD Work Phone: [facility] HospitalOhonooauxs01-98-2769 12:30-0400Systolic blood iesrpxjz494 mm[Hg]Mounika Brooke MD Work Phone: [phone] [place], [place] [address]Jiingphguw46-58-4085 12:28-0400Body mrqgqu427.3 cmMounika Brooke MD Work Phone: [facility] HospitalGydpcnusvc44-97-8303 12:28-0400Body mass index (BMI) [Ratio]36.43 kg/h7CkzjtMounika Brooke MD Work Phone: [facility] HospitalFcmoijflfm02-77-5664 12:28-0400Body temperature 98.71 [degF]Mounika Brooke MD Work Phone: [facility] HospitalPvscoljhht08-09-6598 12:28-0400Body .48 kgMounika Brooke MD Work Phone: [facility] HospitalYagrlhndvo56-10-6272 12:28-0400Diastolic blood mm[Hg]Mounika Brooke MD Work Phone: [facility] HospitalJfooknrihb45-62-2882 12:28-0400Heart rate77 /min Mounika Brooke MD Work Phone: [facility] HospitalSpglisdajk26-33-5569 12:28-2866TvA0% (BldA) [Mass fraction]98 %Mounika Brooke MD Work Phone: [facility] HospitalTelegewolp08-99-2500 12:28-0400Systolic blood ogdtatti606 mm[Hg]Mounika Brooke MD Work Phone: [facility] HospitalRgzojjgyjy15-55-1185 15:22-0400Hourly Rounding [facility]05-03-2025 15:22-0400[facility] to ReturnLawrSalem [facility]05-03-2025 14:32-0400 Hourly RoundingLaw[facility]05-03-2025 14:32-0400Promise to ReturnLawrence [facility] 12-21-2024 13:30-0400[facility]our[facility] RoundingLaC[facility]05-03-2025 13:30-0400Promise to ReturnLawrSalem City Hospital05-03-2025 11:00-0400Blood Pressure LocationLaK[facility]05-03-2025 11:00-0400Body qefqkmlfntl65.88 [degF] [facility]05-03-2025 11:00-0400Diastolic blood rjzagjet63 mm[Hg][facility] 12-21-2024 11:00-0400Heart rate80 /minLawrSalem City Hospital05-03-2025 11:00-0400Mean blood mm[Hg][facility]05-03-2025 11:00-0400Respiratory rate16 /min [facility]05-03-2025 11:00-0478HbW6% (BldA) [Mass fraction]96 %[facility] 12-21-2024 11:00-0400Systolic blood bbqpkcly016 mm[Hg][facility]05-03-2025 08:00-0400Diastolic blood udbepfzk97 mm[Hg] [facility]05-03-2025 08:00-0400Heart rate 76 /minLawrSalem City Hospital05-03-2025 08:00-0400 Mean blood jqvizqje609 mm[Hg][facility] 12-21-2024 08:00-0540JuH0% (BldA) [Mass fraction]97 %[facility]05-03-2025 08:00-0400Systolic blood qhczapod157 mm[Hg] [facility]05-03-2025 04:00-0400Body jbfpdeqonyg98.7 [degF][facility] 12-21-2024 04:00-0400Diastolic blood yfjepees14 mm[Hg][facility]05-03-2025 04:00-0400Diastolic blood mm[Hg] [facility]05-03-2025 04:00-0400Heart rate 95 /minLaCincinnati [facility]05-03-2025 04:00-0400 Heart rate62 /minLaCincinnati VA Medical Center05-03-2025 04:00-0400Mean blood fneeffkw93 mm[Hg][facility]05-03-2025 04:00-0400Mean blood mm[Hg][facility]05-03-2025 04:00-0400Respiratory rate18 /min [facility]05-03-2025 04:00-2020IjW9% (BldA) [Mass fraction]95 %[facility] 12-21-2024 04:00-0400Systolic blood tubjcrlh44 mm[Hg][facility]05-03-2025 04:00-0400Systolic blood hihwavon171 mm[Hg] [facility]05-03-2025 00:00-0400Heart rate 62 /minLawrSalem City Hospital05-02-2025 19:37-0400 Heart rate67 /minLawrSalem City Hospital05-02-2025 14:09-8689QrB9% (BldA) [Mass fraction]93.9 %[facility] Resp Auto PO67-68-9453 14:11-0400Body rfrcmi975.3 cmMounika Brooke MD Work Phone: [facility] HospitalFmdvukpwwr13-02-4441 14:11-0400Body mass index (BMI) [Ratio]35.7 kg/g4PaxxdMounika Brooke MD Work Phone: [facility] HospitalUgskosctji65-76-9742 14:11-0400Body temperature 97.5 [degF]Mounika Brooke MD Work Phone: [facility] HospitalLgqxuxzxei50-23-5441 14:11-0400Body yjxqle541.12 kgMounika Brooke MD Work Phone: [facility] HospitalNxdlglhebw32-48-0305 14:11-0400Diastolic blood uzdcecmg49 mm[Hg]Mounika Brooke MD Work Phone: [facility] HospitalEepumpdsco37-39-5231 14:11-0400Heart wxll718 /min Mounika Brooke MD Work Phone: [place] [address]Mnwckmzokk49-74-6458 14:11-2474GdM0% (BldA) [Mass fraction]97 %Mounika Brooke MD Work Phone: [place] [address]Zuhuqpqlch03-96-5207 14:11-0400Systolic blood bdcowplc462 mm[Hg]Mounika Brooke MD Work Phone: [place] [address]Bnoqyjsyre06-78-1870 15:00-0400Heart rate74 /min Nicole Myers [facility]04-14-2025 15:00-6742CiM1% (BldA) [Mass fraction]93 %Nicole Myers [facility]04-14-2025 15:00-0400 Diastolic blood mm[Hg]Nicole Myers [address] [place], [place] 6702404-14-2025 15:00-0400Mean blood ehxchkvd784 mm[Hg]Nicole Myers [address] [place], [place] 6[address]2404-14-2025 15:00-0400 Respiratory rate18 /minNicole Myers [address] [place], [place] 6702404-14-2025 15:00-0400 Systolic blood knnilujl460 mm[Hg]Nicole Myers [address] [place], [place] 6702404-14-2025 14:00-3194QaQ8% (BldA) [Mass fraction]97 %Nicole Myers [address] [place], [place] 6702404-14-2025 14:00-0400Heart rate78 /minNicole Myers [address] [place], [place] 6702404-14-2025 14:00-0400 Diastolic blood httgyref99 mm[Hg]Nicole Myers [address] [place], [place] 6702404-14-2025 14:00-0400Mean blood bpiyyvnm852 mm[Hg]Nicole Myers [address] [place], [place] 6[address]2404-14-2025 14:00-0400 Systolic blood vddlonci564 mm[Hg]Nicole Myers [address] [place], [place] [address]2404-14-2025 13:00-8160RnD8% (BldA) [Mass fraction]96 %Nicole Myers [address] [place], [place] 6702404-14-2025 13:00-0400Heart rate73 /minNicole Myers [facility]04-14-2025 13:00-0400 Diastolic blood tjdhoyvb42 mm[Hg]Nicole Myers [facility]04-14-2025 13:00-0400Mean blood ytpieuiw972 mm[Hg]Nicole Myers [address] [place], [place] 6702404-14-2025 13:00-0400 Systolic blood pbjlmwed440 mm[Hg]Nicole Myers [address] [place], [place] 6702404-14-2025 12:42-0400Body gnsvihrpbhr57.8 [degF]Nicole Myers [address] [place], [place] 6702404-14-2025 12:42-0400Heart rate81 /Marvin Myers [address] [place], [place] 6702404-14-2025 12:42-0400 Respiratory rate20 /minNicole Myers [address] [place], [place] 6702401-15-2025 14:00-0500Body .3 Naila Sweeney MD Work Phone[facility]3525 14:00-0500Body mass index (BMI) [Ratio]39.05 kg/e6AxarqKayla Sweeney MD Work Phone: [facility]Hzib[facility]cjqy01-26-4257 14:00-0500Body .01 kgKayla Sweeney MD Work Phone: [facility]Acobtqatkc19-24-0883 14:00-0500Diastolic blood dxoacwnx79 mm[Hg]Kayla Sweeney MD Work Phone: [facility]Bfzdldcidb22-37-4990 14:00-0500Heart rate80 /min Kayla Sweeney MD Work Phone: [facility] HospitalYuddjwlvrs20-30-8558 14:00-0500Respiratory rate18 /minAhmad Patel MD Work Phone: 1(843)[address]01-15-2025 14:00-0500Systolic blood mopquvxq053 mm[Hg]Kayla Sweeney MD Work Phone: 1(080)[address] [place], [place] [address]Uedvwqzzdx87-91-5514 14:27-0500Body yorrnl116.3 Naila Sweeney MD Work Phone: 1(070)[address] [place], [place] 7366711-25-2024 14:27-0500Body mass index (BMI) [Ratio]38.22 kg/x4SoybpKayla Sweeney MD Work Phone: 1(771)663[place] [address]-25-2024 14:27-0500Body qmyvmm888.29 kgKayla Sweeney MD Work Phone: 1(240)[address] [place], [place] 7366711-25-2024 14:27-0500Diastolic blood vazyzbhz94 mm[Hg]Kayla Sweeney MD Work Phone: 1(446)[address] [place], [place] [address]366711-25-2024 14:27-0500Heart rate81 /min Kayla Sweeney MD Work Phone: 1(942)269[place] [address]-25-2024 14:27-0500Respiratory rate18 /minKayla Sweeney MD Work Phone: 1(056)149-[address] [place], [place] [address]Tnuvtjipfo68-59-4242 14:27-0500Systolic blood njnnuivt196 mm[Hg]Kayla Sweeney MD Work Phone: 1(542)[address]11-21-2024 13:50-0500Body myoxnn152.3 Margarette Brooke MD Work Phone: [place] [address]Oxodgdznst17-11-2673 13:50-0500Body mass index (BMI) [Ratio]43.15 kg/u5LkwiiMounika Brooke MD Work Phone: [facility] HospitalFiszeeegaf11-87-8085 13:50-0500Body temperature 97.81 [degF]Mounika Brooke MD Work Phone: [place] [address]Mgwyisegai50-70-4964 13:50-0500Body qafuxx434.54 kgMounika Brooke MD Work Phone: [facility] HospitalKaclzsjeua41-73-9345 13:50-0500Diastolic blood zizvltax65 mm[Hg]Mounika Brooke MD Work Phone: [facility] HospitalBsehiopysm50-12-1043 13:50-0500Heart rate73 /min Mounika Brooke MD Work Phone: [facility] HospitalEykjemtewt11-41-4517 13:50-9669WaC1% (BldA) [Mass fraction]92 %Mounika Brooke MD Work Phone: [phone] HospitalZatnrgsrgm33-38-9007 13:50-0500Systolic blood ulbqmsnm846 mm[Hg]Mounika Brooke MD Work Phone: [facility] HospitalQjdxvxgxpo69-63-6735 14:40-0500Body temperature 98.06 [degF]Nicole Myers [address] [place], [place] 6702411-19-2024 14:40-0500 Diastolic blood mm[Hg]Nicole Myers [address]11-19-2024 14:40-0500Heart rate73 /minNicole Myers [address] [place], [place] 6702411-19-2024 14:40-0500 Respiratory rate20 /minNicole Myers [address] [place], [place] 6702411-19-2024 14:40-7165KyD9% (BldA) [Mass fraction]96 %Nicole Myers [address] [place], [place] 6702411-19-2024 14:40-0500 Systolic blood cihdfvfk252 mm[Hg]Nicole Myers [address] [place], [place] 6702411-13-2024 12:45-0500Body mass index (BMI) [Ratio]43.3 kg/d4HlzneMounika Brooke MD Work Phone: [place] [address]Rpwipvryec23-78-4287 12:45-0500Body temperature 98.01 [degF]Mounika Brooke MD Work Phone: [facility] HospitalStiygulnoj10-66-6224 12:45-0500Body idqugj819 kg Mounika Brooke MD Work Phone: [facility] HospitalEnkablhpiw93-68-6601 12:45-0500Heart rate84 /min Mounika Brooke MD Work Phone: [place] [address]Mdywijktwu80-44-4404 12:45-1099VwM2% (BldA) [Mass fraction]93 %Mounika Brooke MD Work Phone: [facility] HospitalTfcrewohus94-98-5168 13:39-0500Body temperature 97.7 [degF][facility]11-03-2024 13:39-0500 Diastolic blood jwwutyry80 mm[Hg][facility] 06-23-2024 13:39-0500Heart rate71 /[facility]11-03-2024 13:39-0500Respiratory rate22 /[facility]11-03-2024 13:39-0439OkO8% (BldA) [Mass fraction]92 %[facility]11-03-2024 13:39-0500Systolic blood pressure 182 mm[Hg][facility]11-01-2024 13:36-0400Body ulzizh249.8 cmJennifer ROWAN Work Phone: [facility] HospitalSywolmxtmd50-86-2370 13:36-0400Body mass index (BMI) [Ratio]41.78 kg/n0YyifgdxJennifer ROWAN Work Phone: [facility] HospitalFfpstzjwwu97-78-2648 13:36-0400Body temperature 98.1 [degF]Jennifer ROWAN Work Phone: [facility] HospitalYsqvpoesoh76-87-5986 13:36-0400Body egxanb209.09 kgJennifer Short PA Work Phone: [facility] HospitalJcwwvdpknp88-35-9994 13:36-0400Diastolic blood immtfzni98 mm[Hg]Jennifer Short PA Work Phone: [facility] HospitalQtxntxohsb33-29-1389 13:36-0400Heart rate71 /min Jennifer Short PA Work Phone: [facility] HospitalThbobcfhxx68-80-5995 13:36-5325AuF4% (BldA) [Mass fraction]91 %Jennifer Short PA Work Phone: [place] [address]Ianjfxqxqo24-42-9904 13:36-0400Systolic blood teeukibp452 mm[Hg]Jennifer Short PA Work Phone: [facility] HospitalXxyqnvrtfd88-96-8171 14:19-0400Body dillqc853.8 cmMounika Brooke MD Work Phone: [facility] HospitalWnrahaeplg32-70-1408 14:19-0400Body mass index (BMI) [Ratio]42.47 kg/u3CyooaMounika Brooke MD Work Phone: [facility] HospitalSjbwzdzumq92-20-2563 14:19-0400Body temperature 98.01 [degF]Mounika Brooke MD Work Phone: [facility] HospitalHwywgwbsdh29-45-0576 14:19-0400Body vrhyts737.26 kgMounika Brooke MD Work Phone: [facility] HospitalOoxudqdmhe69-15-4514 14:19-0400Diastolic blood ldzryvaj01 mm[Hg]Mounika Brooke MD Work Phone: [place] [address]Ghkbwvxnyj45-46-4693 14:19-0400Heart rate75 /min Mounika Brooke MD Work Phone: [facility] HospitalDfvdebuihr00-84-8769 14:19-7312PvV0% (BldA) [Mass fraction]88 %Mounika Brooke MD Work Phone: [facility] HospitalCvkiyfodpb93-47-0630 14:19-0400Systolic blood xuyklvxj495 mm[Hg]Mounika Brooke MD Work Phone: [facility] HospitalQbgngivmfd44-38-3393 14:31-0400Blood Pressure LocationAurora Orzech [facility]06-21-2024 14:31-0400Body szvbxbuypdd14.88 [degF]Gisselle Orzech [facility]06-21-2024 14:31-0400Diastolic blood mm[Hg]Gisselle Orzech [facility]06-21-2024 14:31-0400Heart rate72 /minAurora Orzech [facility]06-21-2024 14:31-0400Respiratory rate16 /minAurora Orzech [facility]06-21-2024 14:31-0400Systolic blood imhwflmb385 mm[Hg]Gisselle Orzech [facility]05-27-2024 17:00-0400Diastolic blood fidgzntl11 mm[Hg]Nciole Myers [facility]05-27-2024 17:00-0400Heart rate77 /minJohn Jonathon [facility]05-27-2024 17:00-0400Mean blood hhserckq132 mm[Hg]Nicole Myers [facility]05-27-2024 17:00-0400 Respiratory rate15 /minJomichelle Jonathon [facility]05-27-2024 17:00-0400 Systolic blood rutvlyvk965 mm[Hg]Nicole Myers [facility]05-27-2024 16:24-0400 Diastolic blood rkorfapu51 mm[Hg]Nicole Myers [address] [place], [place] [address]05-27-2024 16:24-0400Heart rate69 /Marvin Myers [address] [place], [place] 6702405-27-2024 16:24-0400 Respiratory rate18 /minNicole Myers [address] [place], [place] 6702405-27-2024 16:24-8871LzC8% (BldA) [Mass fraction]92 %Nicole Myers [address] [place], [place] [address]2405-27-2024 16:24-0400 Systolic blood jhzlecag944 mm[Hg]Nicole Myers [address]03-29-2024 12:30-0400 Diastolic blood qsagtwuy67 mm[Hg]MD Mounika Brooke Work Phone: [phone]03-29-2024 12:30-0400 Systolic blood vybtzmjd295 mm[Hg]MD Mounika Brooke Work Phone: 1(917)[address]03-29-2024 12:12-0400 Heart rate82 /min Mounika Brooke Work Phone: 1(993)477-[address] [place], [place] 1684303-29-2024 12:12-0400 Respiratory rate20 /minMD Mounika Brooke Work Phone: 1(615)824-[address] [place], [place] 1684303-29-2024 11:26-0400 Body jksksgzzvho90.6 [degF]MD Mounika Brooke Work Phone: 1(452)986-[address] [place], [place] 1684303-29-2024 11:26-0400 SaO2% (BldA) [Mass fraction]96 %MD Mounika Brooke Work Phone: 1(740)120-[address] [place], [place] 1684303-29-2024 09:15-0400 Inhaled oxygen flow rate4 L/minMD Mounika Brooke Work Phone: [facility]03-29-2024 04:17-0400 Body erwhaa847.2 kgMD Mounika Brooke Work Phone: [facility]03-29-2024 00:50-0400 Inhaled oxygen qwhdtbyfyxrqg44 % Mounika Brooke Work Phone: 1(234)618-[address] [place], [place] 2784203-25-2024 15:19-0400 Body ejeptv644.34 cmMD Mounika Brooke Work Phone: [facility]03-23-2024 16:30-0400 Diastolic blood ipgvrits52 mm[Hg][facility] 11-11-2023 16:30-0400Heart rate63 /min[facility]03-23-2024 16:30-0400Mean blood mm[Hg][facility]03-23-2024 16:30-0400Respiratory rate18 /[facility]03-23-2024 16:30-5649RxN1% (BldA) [Mass fraction]96 %[facility]03-23-2024 16:30-0400Systolic blood uskgumgv638 mm[Hg][facility]03-23-2024 16:00-0400Diastolic blood vneszujs03 mm[Hg][facility]03-23-2024 16:00-0400Heart rate64 /min[facility]03-23-2024 16:00-0400Mean blood mm[Hg][facility]03-23-2024 16:00-0400Respiratory rate15 /[facility]03-23-2024 16:00-0400Systolic blood bttowqzj454 mm[Hg][facility]03-23-2024 15:30-0400Diastolic blood tvnlmkuo36 mm[Hg][facility]03-23-2024 15:30-0400Heart rate62 /min[facility]03-23-2024 15:30-0400Mean blood mzgugoaw72 mm[Hg][facility]03-23-2024 15:30-0400Respiratory rate20 /min[facility]03-23-2024 15:30-8182HyP6% (BldA) [Mass fraction]95 %[facility]03-23-2024 15:30-0400Systolic blood pressure 141 mm[Hg][facility]03-23-2024 09:31-3230AIX485 1[facility]03-23-2024 09:31-0400Respiratory rate20 /min[facility]03-23-2024 09:17-8836YuC9% (BldA) [Mass fraction]88.7 %[facility] Auto KB00-48-6838 09:15-0400Respiratory rate24 /[facility] 11-11-2023 09:07-0400Respiratory rate24 /min[facility]03-23-2024 09:05-0400Body zpqppfityrg37.6 [degF][facility]03-23-2024 09:05-0400Heart rate77 /[facility]03-23-2024 09:05-0400Heart rate76 /[facility]03-23-2024 08:05-0400Body byddxgzjqjb94.6 [degF][facility]03-11-2024 05:17-0400Body .42 [degF]Staci Beck [address] [place], [place] 6[address]2403-11-2024 05:17-0400 Diastolic blood dzunowun52 mm[Hg]Staci Beck [address] [place], [place] [address]2403-11-2024 05:17-0400Heart rate80 /Tanya Beck [address]03-11-2024 05:17-0400 Respiratory rate20 /Tanya Beck [address] [place], [place] 5973003-11-2024 05:17-8731SyS2% (BldA) [Mass fraction]94 %Staci Beck [address] [place], [place] 6702403-11-2024 05:17-0400 Systolic blood jidomgpu905 mm[Hg]Staci Beck [address] [place], [place] [address]2403-05-2024 23:08-4439ZkI2% (BldA) [Mass fraction]93 %[facility] HospitalComment on above:Order Comment: Specimen Type: BLOOD SPECIMEN Ordering Facility: [facility] Address: [address] [place], [place] [address]Performed By: #### [id number], [id number] #### [facility] [place] [id number] [address] [place], [place] [address]103-05-2024 18:39-7649TzT4% (BldA) [Mass fraction]96 %[facility] HospitalComment on above:Order Comment: Specimen Type: BLOOD SPECIMEN Ordering Facility: [facility] Address: [address] [place], [place] [address]Performed By: #### PTTAC #### [facility] CLIA [id number] [address] [place] [address] [id number] 06:20-6939YcR1% (BldA) [Mass fraction]98 %Mone Martinez [address] [place], [place] [address]02-25-2024 06:12-0500Body cmzzdstwuji60.06 [degF]Mone Martinez [address]02-25-2024 06:12-0500 Diastolic blood dxfszyhw00 mm[Hg]Mone Martinez [address] [place], [place] [address]2402-25-2024 06:12-0500Heart rate77 /minMone Martinez [address] [place], [place] 6702402-25-2024 06:12-0500 Respiratory rate20 /minMone Martinez [address] [place], [place] [address]702402-25-2024 06:12-0882ZbH5% (BldA) [Mass fraction]98 %Mone Martinez [address] [place], [place] 6702402-25-2024 06:12-0500 Systolic blood rvfriarl132 mm[Hg]Mone Martinez [address] [place], [place] [address]702402-22-2024 11:38-0500Body ikwepcyaias28 [degF]MD Mounika Brooke Work Phone: [facility]02-22-2024 11:38-0500 Diastolic blood jysvwxva94 mm[Hg]MD Mounika Brooke Work Phone: [facility]02-22-2024 11:38-0500 Heart rate74 /minMD Mounika Brooke Work Phone: [facility]02-22-2024 11:38-0500 Inhaled oxygen flow rate4 L/minMD Mounika Brooke Work Phone: [facility]02-22-2024 11:38-0500 Respiratory rate18 /minMD Mounika Brooke Work Phone: 1(419)668-[address] [place], [place] 1684302-22-2024 11:38-0500 SaO2% (BldA) [Mass fraction]97 %MD Mounika Brooke Work Phone: 1(224)[address]02-22-2024 11:38-0500 Systolic blood nalvzglu906 mm[Hg]MD Mounika Brooke Work Phone: 1(004)[address]02-22-2024 05:08-0500 Body wjkcyc278.6 kgMD Mounika Mendy Work Phone: 1(837)[address]02-22-2024 00:00-0500 Inhaled oxygen concentration4 %MD Mounika Brooke Work Phone: 1(533)[address] [place], [place] 6311002-19-2024 14:10-0500 Body sfpupj784.88 cmMD Mounika Logangles Work Phone: 1(965)[address] [place], [place] 6311002-16-2024 23:47-0500 Body fivvfbyvwkn18.4 [degF]MD Mounika Brooke Work Phone: 1(437)[address]02-16-2024 23:47-0500 Diastolic blood jonxqayf43 mm[Hg]MD Mounika Brooke Work Phone: 1(384)[address]02-16-2024 23:47-0500 Heart rate80 /minMD Mounika Brooke Work Phone: 1(853)[address]02-16-2024 23:47-0500 Inhaled oxygen flow rate6 L/min Mounika Logangles Work Phone: 1(251)[address]02-16-2024 23:47-0500 Respiratory rate20 /minMD Mounika Logangles Work Phone: 1(732)[address]02-16-2024 23:47-0500 SaO2% (BldA) [Mass fraction]94 %MD Mounika Brooke Work Phone: 1(981)[address]02-16-2024 23:47-0500 Systolic blood sblmvqqi495 mm[Hg]MD Deanjojo Brooke Work Phone: [facility]02-16-2024 20:13-0500 Body tdblat725.88 cmMD Mounika Brooke Work Phone: [facility]02-16-2024 20:13-0500 Body emuiml737.98 kgMD Mounika Brooke Work Phone: [facility]02-04-2024 20:07-0500 Body hhklzlhrxou89.52 [degF]Jose Miguel Sylvester [address]02-04-2024 20:07-0500 Diastolic blood llzplrca02 mm[Hg]Jose Miguel Sylvester [address] [place], [place] [address]2402-04-2024 20:07-0500Heart rate80 /minNoah Sylvester [address]02-04-2024 20:07-0500 Respiratory rate18 /minNoah Sylvester [address] [place], [place] 5973002-04-2024 20:07-5459TyD5% (BldA) [Mass fraction]93 %Jose Miguel Sylvester [address] [place], [place] 6702402-04-2024 20:07-0500 Systolic blood mm[Hg]Jose Miguel Sylvester [address] [place], [place] 6[address]2401-28-2024 15:00-0500 Diastolic blood mm[Hg][facility] 09-17-2023 15:00-0500Heart rate80 /[facility]01-28-2024 15:00-0500Mean blood afzehpzt45 mm[Hg][facility]01-28-2024 15:00-0500Respiratory rate18 /minAstrit [facility]01-28-2024 15:00-0896HsT2% (BldA) [Mass fraction]93 %[facility]01-28-2024 15:00-0500Systolic blood kepzvdlj777 mm[Hg][facility]01-28-2024 14:23-0500Body cchubumjdwx04.24 [degF][facility]01-28-2024 14:23-0500Diastolic blood fodddvdt74 mm[Hg][facility]01-28-2024 14:23-0500Heart rate79 /[facility]01-28-2024 14:23-0500Respiratory rate20 /min[facility]01-28-2024 14:23-6208LeV6% (BldA) [Mass fraction]92 %[facility]01-28-2024 14:23-0500 Systolic blood pscijqxh71 mm[Hg][facility] 08-06-2023 13:13-0500Body xhljcpcmyas56.88 [degF][facility]12-17-2023 13:13-0500Diastolic blood oqpxywvi95 mm[Hg][facility]12-17-2023 13:13-0500Heart rate91 /min[facility]12-17-2023 13:13-0500Respiratory rate20 /min[facility]12-17-2023 13:13-4068CmY9% (BldA) [Mass fraction]93 %[facility]12-17-2023 13:13-0500Systolic blood pylhquwo271 mm[Hg][facility]11-01-2023 13:55-0400Diastolic blood nmhiefne95 mm[Hg]DO Art Kirby [facility]11-01-2023 13:55-0400Inhaled oxygen flow rate4 L/minDO Art [facility]11-01-2023 13:55-0400 SaO2% (BldA) [Mass fraction]94 %DO [facility]11-01-2023 13:55-0400Systolic blood ahyuvlta643 mm[Hg]DO [facility]11-01-2023 13:52-0400Body hziywwdofhg52.3 [degF]DO [facility]11-01-2023 13:52-0400 Heart rate72 /LynneO [facility]11-01-2023 13:52-0400Respiratory rate20 /LynneO [facility]11-01-2023 06:00-0400Body swxydu717.4 kgDO [facility]10-30-2023 15:26-0400Body ojngii159.88 cmDO [facility]10-30-2023 02:16-0400Diastolic blood vazgjbeo00 mm[Hg]DO Reid Mendy Work Phone: 1(641)[address]10-30-2023 02:16-0400 Heart rate77 /minDO Reid Mendy Work Phone: 1(743)[address]10-30-2023 02:16-0400 Inhaled oxygen flow rate6 L/minDO Reid Mendy Work Phone: 1(719)[address] [place], [place] 4442510-30-2023 02:16-0400 Respiratory rate20 /minDO Reid Mendy Work Phone: 1(781)1-[address] [place], [place] 4442510-30-2023 02:16-0400 SaO2% (BldA) [Mass fraction]91 %DO Reid Mendy Work Phone: 1(832)185-[address] [place], [place] 4442510-30-2023 02:16-0400 Systolic blood abvkxojs025 mm[Hg]DO Reid Mendy Work Phone: [facility]10-29-2023 21:43-0400 Body .88 cmDO Reid Mendy Work Phone: [facility]10-29-2023 21:43-0400 Body jzuxybgrfpb52.5 [degF]DO Reid Logangles Work Phone: [facility]10-29-2023 21:43-0400 Body eqghvo638.61 kgDO Reid Mendy Work Phone: [facility]10-26-2023 17:22-0400 [facility]-26-2023 17:22-0400 Promise to ReturnAv[facility]10-26-2023 16:25-0400 Hourly [facility]ing[facility]10-26-2023 16:25-0400 [facility]10-26-2023 16:20-0400 Heart rate84 /[facility]10-26-2023 16:20-0400 Respiratory rate20 /[facility]10-26-2023 16:07-0400Heart rate80 /[facility]10-26-2023 16:07-0400Respiratory rate20 /[facility] 06-15-2023 16:07-0649JyI7% (BldA) [Mass fraction]93 %[facility]10-26-2023 16:00-0400Body vilykmnlmpy68.42 [degF][facility]10-26-2023 16:00-0400Diastolic blood yintgjcu34 mm[Hg][facility]10-26-2023 16:00-0400Heart rate88 /[facility]10-26-2023 16:00-0400Systolic blood mm[Hg][facility]10-26-2023 15:25-0400Hourly RoundingAv[facility]10-26-2023 15:25-0400Promise to [facility]Av[facility]10-26-2023 12:02-0400Heart rate83 /[facility]10-26-2023 12:02-0400Respiratory rate20 /[facility] 06-15-2023 12:02-2777CmD5% (BldA) [Mass fraction]92 %[facility]10-26-2023 11:54-7093XxG3% (BldA) [Mass fraction]92 %[facility]10-26-2023 10:15-0400Diastolic blood bstmnaft24 mm[Hg][facility]10-26-2023 10:15-0400Mean blood mm[Hg][facility]10-26-2023 10:15-0400 Systolic blood rjuxaetq928 mm[Hg][facility] 06-15-2023 10:15-0400Body .06 [degF][facility]10-26-2023 08:30-6482jqio125 mg/dLAvita [facility]10-26-2023 07:35-0400Diastolic blood fvttekwo83 mm[Hg][facility]10-26-2023 07:35-0400Mean blood ofgvvnnu631 mm[Hg] [facility]10-26-2023 07:35-0400Systolic blood cmypckly840 mm[Hg][facility]10-26-2023 07:33-0400 Body .06 [degF][facility]10-26-2023 00:39-0400Blood Pressure LocationAv[facility] 06-14-2023 20:00-0400Body oppvqasmmus22.42 [degF][facility]10-25-2023 16:12-0400Blood Pressure LocationAv[facility]10-25-2023 16:12-0400Body htaldyiupuk74.7 [degF][facility]10-25-2023 16:12-0400Mean blood mm[Hg] [facility]10-25-2023 08:20-0400Mean blood xzexptre869 mm[Hg][facility]10-25-2023 08:19-0400 Body gszszwwldan64.06 [degF][facility]10-25-2023 05:50-6927EPQ288 %[facility]10-25-2023 00:50-0400 Mean blood wyxqvugi424 mm[Hg][facility]10-24-2023 23:55-5662FMH157 %[facility]10-24-2023 20:00-6991arfd652 mg/dLAvita [facility]10-24-2023 11:54-9383OZN806 %[facility]10-24-2023 08:00-0400 Blood Pressure LocationAv[facility]10-24-2023 08:00-0400Mean blood givyjdbd767 mm[Hg][facility] 06-12-2023 16:38-7363eabj427 mg/dLAv[facility] 06-11-2023 21:00-0400Heart rate73 /[facility] 06-11-2023 20:25-0400Heart rate75 /[facility] 06-11-2023 19:30-0400Respiratory rate16 /[facility]10-22-2023 18:30-0400Respiratory rate14 /[facility]10-22-2023 14:22-7179CkH7% (BldA) [Mass fraction]90.8 %[facility] Resp Auto [id number] 13:29-0400Blood Pressure LocationJekeily STROUD [phone]-Tkjme[address] [place] [address] 05-22-2023 13:29-0400Diastolic blood mm[Hg]Migue STROUD 283-2566Wyyeoa-Qweik[address] [place] [address] 05-22-2023 13:29-0400Heart rate74 /Yanet STROUD 416-2724Kxhmxn-Wgmeg[address] [place] [address] 05-22-2023 13:29-6259UhG4% (BldA) [Mass fraction]87 %Migue STROUD 535-9290Mxjwaq-Vwxxj[address] [place] [address] 05-22-2023 13:29-0400Systolic blood wqmooztb998 mm[Hg]Migue STROUD 489-1888Sdascy-Purac[address] [place] [address] 05-08-2023 10:30-0400Diastolic blood pjmyozru59 mm[Hg]Mary Mendez [facility]09-18-2023 10:30-0400Mean blood dqrtpjyx423 mm[Hg]Mary Mendez [facility]09-18-2023 10:30-0400 Systolic blood mm[Hg]Mary Mendez [facility]09-18-2023 10:01-0400Blood Pressure LocationBarubina Mendez [facility]09-18-2023 10:01-0400 Diastolic blood uewdmleq88 mm[Hg]Mary Mendez [facility]09-18-2023 10:01-0400Heart rate68 /minMary Mendez [facility]09-18-2023 10:01-3202SqU8% (BldA) [Mass fraction]88 %Mary Mendez [facility]09-18-2023 10:01-0400 Systolic blood mzmgvose969 mm[Hg]Mary Mendez [facility]04-14-2023 11:12-0400 Diastolic blood oaiyyvux04 mm[Hg]Migue STROUD [phone]-Neibm[address] [place] [address] 12-02-2022 11:12-0400Mean blood tstpygkl848 mm[Hg]Migue STROUD 526-5652Prfaqc-Hxuds[address] [place] [address] 12-02-2022 11:12-0400Systolic blood fhcouspm348 mm[Hg]Migue STROUD [phone]-Lcyga[address] [place] [address] 12-02-2022 10:55-0400Blood Pressure LocationJejankicora STROUD [phone]-Kiftk[address] [place] [address] 12-02-2022 10:55-0400Diastolic blood orttekut45 mm[Hg]Migue MARLI [phone]-Jionc[address] [place] [address] 12-02-2022 10:55-0400Heart rate74 /minSarthakjankicora STROUD 488-5241Qbegyk-Bjorb[address] [place] [address] 12-02-2022 10:55-0766BwA8% (BldA) [Mass fraction]92 %Miguecora STROUD [phone]-Rpise[address] [place] [address] 12-02-2022 10:55-0400Systolic blood rqmezljy406 mm[Hg]Migue STROUD [phone]-Lbzap[address] [place] [address] 09-13-2022 13:21-0500Diastolic blood dnhrbeui70 mm[Hg]Migue STROUD [phone]-Hghrj[address] [place] [address] 09-13-2022 13:21-0500Mean blood vpzgamci620 mm[Hg]Migue STROUD 524-2298Jdyyai-Liafo[address] [place] [address] 09-13-2022 13:21-0500Systolic blood zyyzxksj845 mm[Hg]Migue STROUD [phone]-Bgffp[address] [place] [address] 09-13-2022 13:16-0500Blood Pressure LocationSarthakkeily STROUD [phone]-Uybfv[address] [place] [address] 09-13-2022 13:16-0500Body nlzeveyxmha08.7 [degF]Migue STROUD [phone]-Crlhb[address] [place] [address] 09-13-2022 13:16-0500Diastolic blood ikrghdnt43 mm[Hg]Migue STROUD 340-9548Nerddb-Bnqui[address] [place] [address] 09-13-2022 13:16-0500Heart rate78 /minMigue STROUD 175-5570Tsdqhn-Prlqv[address] [place] [address] 09-13-2022 13:16-9055OyO4% (BldA) [Mass fraction]96 %Migue STROUD [id number]-Lfjke[address] [place] [address] 09-13-2022 13:16-0500Systolic blood kgdhexnq998 mm[Hg]Migue STROUD 432-7408Csjvzl-Ppfkb[address] [place] [address] 08-04-2022 17:12-0500Diastolic blood mtnfrsie73 mm[Hg]Mone Martinez [address] [place], [place] 6702412-15-2022 17:12-0500Heart rate76 /minMone Martinez [address] [place], [place] 6702412-15-2022 17:12-0500Mean blood rdrbhres489 mm[Hg]Mone Martinez [address]12-15-2022 17:12-0500 Respiratory rate18 /minMone Martinez [address] [place], [place] 5973012-15-2022 17:12-1158IjA0% (BldA) [Mass fraction]100 %Mone Martinez [address] [place], [place] 5973012-15-2022 17:12-0500 Systolic blood kyvhbwlm651 mm[Hg]Mone Martinez [address]12-15-2022 16:30-0500 Diastolic blood gpnabumg56 mm[Hg]Mone Martinez [address]12-15-2022 16:30-0500Heart rate74 /minMone Maritnez [address] [place], [place] 6702412-15-2022 16:30-0500Mean blood ocnopncs868 mm[Hg]Mone Martinez [address] [place], [place] 6702412-15-2022 16:30-0500 Respiratory rate16 /minMone Martinez [address] [place], [place] 5973012-15-2022 16:30-5427IwJ3% (BldA) [Mass fraction]97 %Mone Martinez [address] [place], [place] 6702412-15-2022 16:30-0500 Systolic blood jovlkkne404 mm[Hg]Mone Martinez [address] [place], [place] 5973012-15-2022 15:35-0500 Diastolic blood driyxyjy432 mm[Hg]Mone Martinez [address] [place], [place] 6702412-15-2022 15:35-0500Heart rate73 /sammyMone Martinez [address] [place], [place] 6702412-15-2022 15:35-0500 Respiratory rate16 /minMone Martinez [address] [place], [place] 6702412-15-2022 15:35-5219ZnN2% (BldA) [Mass fraction]97 %Mone Martinez [address] [place], [place] 6702412-15-2022 15:35-0500 Systolic blood nctgtfwy739 mm[Hg]Mone Martinez [address] [place], [place] 6702412-15-2022 13:08-0500Body kovrdmrxlqu33.88 [degF]Mone Martinez [address] [place], [place] 6702412-15-2022 13:08-0500Heart rate80 /Jorden Martinez [address] [place], [place] 6702408-09-2022 13:04-0400Blood Pressure LocationMigue STROUD 294-1527Pflwwa-SidwoSelect [facility] 08-09-2022 13:04-0400Body lebgkysjowh34.98 [degF] Migue STROUD [phone]-GakugSelect [facility]ty [facility] 08-09-2022 13:04-0400Diastolic blood vfbyrjlw86 mm[Hg] Migue STROUD 802-2030Liktwb-VexvnSelect [facility] 08-09-2022 13:04-0400Heart rate72 /Yanet STROUD 145-2788Rmtkkk-HtzomSelect [facility]ty [facility] 08-09-2022 13:04-8162NaW2% (BldA) [Mass fraction]95 % Migue STROUD 278-4230Ivckht-IwmtrSelect Medical Specialty [facility] 08-09-2022 13:04-0400Systolic blood vtrngcil187 mm[Hg] Migue STROUD [phone]-YrfkpSelect [facility] 07-20-2022 00:59-0400Body yfikrbcdzos82.6 [degF]Jose Miguel Sylvester [address] [place], [place] 6702407-19-2022 23:56-0400Body sfbdgkzympa037.58 [degF]Jose Miguel Sylvester [address] [place], [place] 6702407-19-2022 23:56-0400 Diastolic blood evcizxln89 mm[Hg]Jose Miguel Sylvester [facility]07-19-2022 23:56-0400Heart rate95 /minNoah Sylvester [address] [place], [place] 6702407-19-2022 23:56-0400Mean blood sokwjlrq45 mm[Hg]Jose Miguel Sylvester [facility]07-19-2022 23:56-8694RoJ6% (BldA) [Mass fraction]90 %Jose Miguel Sylvester [facility]07-19-2022 23:56-0400 Systolic blood tqaqyscj831 mm[Hg]Jose Miguel Sylvester [address] [place], [place] 6[address]2407-19-2022 22:56-0400Body ecnxebdopdv35.7 [degF]Jose Miguel Sylvester [address] [place], [place] 6702407-19-2022 22:56-0400 Diastolic blood skubmllj16 mm[Hg]Jose Miguel Sylvester [facility]07-19-2022 22:56-0400Heart rate92 /minJose Miguel Phan [facility]07-19-2022 22:56-0400 Respiratory rate15 /minJose Miguel Tomlinner [facility]07-19-2022 22:56-3287YwZ2% (BldA) [Mass fraction]94 %Jose Miguel Sylvester [facility]07-19-2022 22:56-0400 Systolic blood wpzkysjk067 mm[Hg]Jose Miguel Phan [facility]05-24-2022 12:33-0400Blood Pressure LocationMigue STROUD [phone]-MjdzkSelect [facility] Specialty [facility] 05-24-2022 12:33-0400Body qlutnbzocyg27.06 [degF] Migue STROUD [phone]-RucyuSelect Medical Specialty [facility] 05-24-2022 12:33-0400Diastolic blood zynxrlhy08 mm[Hg] Migue STROUD 093-2283Zpzvyl-VnkscSelect [facility] Specialty [facility] 05-24-2022 12:33-0400Heart rate72 /minMigue STROUD 597-4531Wvlvfv-VenzbSelect [facility] Specialty [facility] 05-24-2022 12:33-5169KlH0% (BldA) [Mass fraction]96 % Migue STROUD 538-1383Ernrjt-IuasrSelect Medical Specialty [facility] 05-24-2022 12:33-0400Systolic blood ocnflxod469 mm[Hg] Migue STROUD 488-2093Gubmgu-KzekgSelect Medical Specialty [facility] Encounters Encounter DateEncounter TypeCare ProviderFacilityStart: 17-65-5304gstqijadwc [facility] Hospitalcility:FTMCStart: 06-05-2025 End: 58-90-5567Durwoh Lizeth Sweeney MD Work Phone: noms [facility] EndocrinologyStart: 06-05-2025 End: 14-19-4745Hodrof Lizeth Sweeney MD Work Phone: noms [facility] EndocrinologyStart: 06-05-2025 End: 80-31-8936Wqlyjp outpatient visit 25 minutesKayla Sweeney MD Work Phone: noms [facility] EndocrinologyComment on above:Type 2 diabetes mellitus with hyperglycemia, with long-term current use of insulin (HCC) (Primary Dx); Insulin long-term use (HCC); Vitamin D deficiency; Encounter for dietary consultation; Hyperlipemia, mixed; Primary hypertensionStart: 06-05-2025 End: 86-83-9337achexdqogqXUFUJSebastián Ding AvailableStart: 06-04-2025 End: 19-61-8624hybocjkycvFDKNW D [facility] Hospitalcility:FTMCStart: 06-02-2025 End: 92-33-0185Efxmwnsruthi Meeks MD Work Phone: noms [facility] EyeStart: 06-02-2025 End: 60-98-8806Tdwwjpsruthi Meeks MD Work Phone: noms [facility] EyeStart: 06-02-2025 End: 61-42-1090nqjxdkpdbrKXZEA M ALLENNot AvailableStart: 04-29-2025 End: 41-27-1633Imgehpsruthi Brooke MD Work Phone: noms [facility] MedicineStart: 04-29-2025 End: 87-20-9454Oohsdbjeet Brooke MD Work Phone: noms [facility] Cent[facility]art: 04-29-2025 End: 81-65-0206Shhfoc outpatient visit 25 minutesMounika Brooke MD Work Phone: noms [facility] HospitalComment on above:Grief (Primary Dx); Anxiousness; Neck pain; Type 2 diabetes mellitus with hyperglycemia, with long-term current use of insulin (HCC); Essential (primary) hypertension ; Morbid obesity ([facility]-HCC); BMI 36.0-36.9,adultStart: 04-29-2025 End: 69-02-8225aysshtpcfcGLFVICarlton Ramos AvailableStart: 03-24-2025 End: 03-10-0852Aitlkgqwx encounterMounika Brooke MD Work Phone: noms [facility] HospitalComment on above:Care CoordinationStart: 03-13-2025 End: 86-99-7242Izqusyjeet Brooke MD Work Phone: noms [place] FMStart: 03-13-2025 End: 67-30-3897Rygnxqjeet Brooke MD Work Phone: noms [place] FMStart: 03-13-2025 End: 61-50-0083Feafwfkiegko care manage srvc 7 day dischargeMounika Brooke MD Work Phone: noms [place] FMComment on above:Hospital discharge follow- up (Primary Dx); Type 2 diabetes mellitus with hyperglycemia, with long-term current use of insulin (HCC); Hyperosmolar hyperglycemic state (HHS) (HCC); Muscle cramps; Long-term insulin use (HCC); Difficulty walking; Essential (primary) hypertension ; Morbid obesity (CMS-HCC); BMI 38.0-38.9,adultStart: 03-13-2025 End: 84-22-9303mwxjgxmdkkSJHIICarlton Ramos AvailableStart: 03-05-2025 End: 67-87-3351Yxqhmspeam and management of holy cross hospitalJigna Garciashreyasbrianne Facility:FTMCStart: 64-47-2106Eutzvwvlc department patient visitMoraj Steiner Facility:FTMCStart: 02-05-2025 End: 30-91-0026Ucrvspcoa encounterAggie Langley NE FMComment on above:Care CoordinationStart: 02-05-2025 End: 19-87-7196sjsfwjyhhgAXPDPCarlton Ramos AvailableStart: 02-05-2025 End: 23-70-2226Xrgdbd outpatient visit 25 minutesMounika Brooke MD Work Phone: NOVT NE FMComment on above:Chronic hypoxemic respiratory failure (HCC) (Primary Dx); Leg weakness, bilateral; Essential (primary) hypertension ; Difficulty walking; Type 2 diabetes mellitus with hyperglycemia, with long-term current use of insulin (HCC); Long-term insulin use (HCC); Morbid obesity (CMS-HCC); BMI 36.0-36.9,adultStart: 01-22-2025 End: 25-09-4826HytsntHcvjegx Jeet JI NE FMComment on above:Anxiousness (Primary Dx)Start: 12-26-2024 End: 52-05-3675cuzqhqejlbCxjvmvm F. OsmanFacility:FTMCStart: 12-26-2024 End: 04-10-0492Oyhkqt outpatient visit 15 minutesMounika Brooke MD Work Phone: noms NE FMComment on above:Muscle cramps (Primary Dx); Varicose veins of both lower extremities, unspecified whether complicated; Type 2 diabetes mellitus with hyperglycemia, with long-term current use of insulin (CMS/HCC); Essential (primary) hypertension (CMS/HCC)Start: 12-25-2024 End: 79-50-0948Vrpxdf outpatient visit 25 minutesKayla Sweeney MD Work Phone: noms ENDOCRINOLOGYComment on above:Type 2 diabetes mellitus with hyperglycemia, with long-term current use of insulin (CMS/HCC) (Primary Dx); Insulin long-term use (CMS/HCC); Vitamin D deficiency; Encounter for dietary consultation; Hyperlipemia, mixed (CMS/HCC); Primary hypertension (CMS/HCC)Start: 12-24-2024 End: 55-77-3978Gmlqfr flowsJeramie Sweeney MD Work Phone: noms ENDOCRINOLOGYStart: 12-24-2024 End: 96-86-2751Acbryj Lizeth Sweeney MD Work Phone: noms ENDOCRINOLOGYStart: 12-22-2024 End: 47-01-8477Ypmmopdvx department patient visitCalinjulian Lugo VivienziFacility:[facility] Hospitaltart: 12-20-2024 End: 69-02-1253wjehopzjjnCxjkjutp J. Anduc healthFacility:FTMCStart: 12-20-2024 Emergency department patient visitJomichelle ParenteFacility:FTMCStart: 12-20-2024 End: 35-59-4987GlrejibgfvfPaoswvkb J[facility] Start: 12-19-2024 End: 26-13-2008Hdtbatnih department patient visitTim ThomasFacility:FTMCStart: 12-18-2024 End: 59-28-6718Dqesip flowsLandon Mcguire PT Work Phone: noMS SWS PTHStart: 12-18-2024 End: 13-60-9459Adqnxg Millicent Mcguire PT Work Phone: NOMS SWS PTHStart: 12-18-2024 End: 39-18-7929uxvrzqprclOcicf L Meyer PT Work Phone: NOMS SWS PTHComment on above:Primary osteoarthritis of both knees (Primary Dx)Start: 12-10-2024 End: 59-13-3184Rsvdsxkpc Greg Brooke MD Work Phone: noms NE FMComment on above:Care CoordinationStart: 12-04-2024 End: 40-15-8389wzbhiuqwzaFLQRM M RUGGLESNot AvailableStart: 12-04-2024 End: 53-37-7180Buknyu outpatient visit 25 minutesMounika Brooke MD Work Phone: noms [place] FMComment on above:Chronic hypoxemic respiratory failure (CMS/HCC) (Primary Dx); Acute cough; Chest congestion; Type 2 diabetes mellitus with hyperglycemia, with long-term current use of insulin (CMS/HCC); Long-term insulin use (CMS/HCC); Difficulty walking; Leg weakness, bilateral; BMI 35.0-35.9,adult; Morbid obesity (CMS/HCC); Type 2 diabetes mellitus with diabetic chronic kidney disease (CMS/HCC); Chronic kidney disease, stage 3b (HCC) (CMS/HCC); Essential (primary) hypertension ([facility]); Acquired absence of left foot ([facility]); Need for immunization against influenza; Need for pneumococcal vaccinationStart: 12-02-2024 End: 19-16-3366Uzaqbviel department patient visitNicole Jonathon [facility] Start: 09-04-2024 End: 41-56-7576edszxjhgctGozhyij P COOKFacility:EU [facility] HospitalkStart: 09-04-2024 End: 52-58-7541Ifrudoc encounter procedureTaz THOMAS [facility] Start: 09-04-2024 End: 22-77-9590Ixywcy outpatient visit 25 minutesKayla Sweeney MD Work Phone: noms ENDOCRINOLOGYComment on above:Type 2 diabetes mellitus with hyperglycemia, with long-term current use of insulin (CMS/HCC) (Primary Dx); Insulin long-term use ([facility]); Vitamin D deficiency; Encounter for dietary consultation; Hyperlipemia, mixed ([facility]); Primary hypertension (CMS/HCC)Start: 09-04-2024 End: 98-17-8244Givuez Lizeth Sweeney MD Work Phone: noms ENDOCRINOLOGYStart: 09-04-2024 End: 06-76-5688Mzvpuwsruthi Sweeney MD Work Phone: noms ENDOCRINOLOGYStart: 09-04-2024 End: 46-46-9649mouajprulzRQBOV F SABBAGHNot AvailableStart: 08-06-2024 End: 59-96-0319Oblbtczei Greg Brooke MD Work Phone: noms NE FMComment on above:ReferralStart: 07-22-2024 End: 05-09-0357xylpkuqqlhYXWZG M ALLENNot AvailableStart: 07-22-2024 End: 73-12-6374Wkrhuj-up encounterPerlita Meeks MD Work Phone: NOMS NB OPHTComment on above:Follow-upStart: 07-22-2024 End: 62-88-8135Bctkja Prasanna Meeks MD Work Phone: noms NB OPHTStart: 07-22-2024 End: 21-86-8525Msiocr Prasanna Meeks MD Work Phone: NOMS NB OPHTStart: 07-15-2024 End: 71-63-2769pcuvnasepzVSXAA F SABBAGHNot AvailableStart: 07-15-2024 End: 84-59-4598Dlicjs outpatient visit 25 minutesKayla Sweeney MD Work Phone: noms ENDOCRINOLOGYComment on above:Type 2 diabetes mellitus with hyperglycemia, with long-term current use of insulin (CMS/HCC) (Primary Dx); Insulin long-term use (CMS/HCC); Vitamin D deficiency; Encounter for dietary consultation; Hyperlipemia, mixed (CMS/HCC); Primary hypertension (CMS/HCC); Class 2 severe obesity due to excess calories with serious comorbidity and body mass index (BMI) of38.0 to 38.9 in adult (CMS/HCC)Start: 07-11-2024 End: 61-33-3790Iydcrtjeet Brooke MD Work Phone: noms NE FMStart: 07-11-2024 End: 43-69-1811Rlkdjojeet Brooke MD Work Phone: noms NE FMStart: 07-11-2024 End: 64-83-1803Btcfth outpatient visit 25 minutesMounika Brooke MD Work Phone: noms NE FMComment on above:Acute pain of right shoulder (Primary Dx); Chronic hypoxemic respiratory failure (CMS/HCC); Hypertension, unspecified type (CMS/HCC); BMI 40.0-44.9, adult (CMS/HCC); Morbid obesity (CMS/HCC)Start: 07-11-2024 End: 51-09-1517tbebkzazzdMHGKGCarlton Ramos AvailableStart: 07-09-2024 End: 17-46-2880Tglhfnunh department patient visitNicole Sale [facility] Start: 07-03-2024 End: 38-01-5961Pvsypbjeet Brooke MD Work Phone: noms NE FMStart: 07-03-2024 End: 54-80-3006Hvlkiajeet Brooke MD Work Phone: noms NE FMStart: 07-03-2024 End: 15-70-5517Djofat outpatient visit 25 minutesMounika Brooke MD Work Phone: noms NE FMComment on above:Difficulty walking (Primary Dx); Acute on chronic respiratory failure with hypoxia and hypercapnia (CMS/HCC); Hypertension, unspecified type (CMS/HCC); Type 2 diabetes mellitus with hyperglycemia, with long-term current use of insulin (CMS/HCC); Morbid obesity (CMS/HCC); BMI 40.0-44.9, adult (CMS/HCC)Start: 07-03-2024 End: 69-82-0952mbiqkadbtuWHMZBCarlton Ramos AvailableStart: 06-24-2024 End: 83-63-4725Egrrvnent encounterJennifer ROWAN Work Phone: noms NE FMStart: 06-23-2024 End: 09-75-5571Nqlhfjqrp department patient visitAstrit Linn [facility] Start: 06-21-2024 End: 31-45-1688amnqpmnotoVnvjvisOrtega Sánchezcility:FTMCStart: 06-21-2024 End: 57-59-9110Ugkeodf encounter procedureJennifer SHORT [facility] Start: 06-21-2024 End: 58-36-1980Gvsxgh flowsRamu ROWAN Work Phone: noms NE FMStart: 06-21-2024 End: 02-47-8371Akziqb Jan ROWAN Work Phone: noms NE FMStart: 06-21-2024 End: 92-08-0952Ndnjjpmnl Result EncounterJennifer ROWAN Work Phone: NOBY External Department UnsolicitedStart: 06-21-2024 End: 34-96-1891Doevhh outpatient visit 25 minutesJennifer ROWAN Work Phone: noms NE FMComment on above:Type 2 diabetes mellitus with hyperglycemia, with long-term current use of insulin ([facility]) (Primary Dx); Chronic cough; Chest wall pain; Non-recurrent acute serous otitis media of right earStart: 06-21-2024 End: 10-00-1014wfxgtkuuvfKAYHYRA J SOMMERSNot AvailableStart: 05-22-2024 End: 93-94-6319Pknfjz Prasanna Meeks MD Work Phone: noms NB OPHTStart: 05-22-2024 End: 72-51-6409Miaenh Prasanna Meeks MD Work Phone: noms NB OPHTStart: 05-22-2024 End: 19-44-5025Vrcwjiak Mirna Meeks MD Work Phone: noms NB OPHTComment on above:Retinal InjectionStart: 04-29-2024 End: 93-00-5478Nfonjr Perla Brooke MD Work Phone: noms NE FMStart: 04-29-2024 End: 97-22-5164Bbktad Perla Brooke MD Work Phone: noms NE FMStart: 04-29-2024 End: 51-08-8014Uhvgpuc encounter Jon Brooke MD Work Phone: noms NE FMComment on above:Encounter for Medicare annual wellness exam (Primary Dx); Type 2 diabetes mellitus with hyperglycemia, without long-term current use of insulin ([facility]); RLS (restless legs syndrome); Chronic hypoxemic respiratory failure ([facility]); Stage 3b chronic kidney disease (HCC) ([facility]); Oxygen dependent; Morbid obesity ([facility]); BMI 40.0-44.9, adult ([facility]); Other diabetic neurological complication associated with type 2 diabetes mellitus ([facility]); TC (obstructive sleep apnea); Restless leg syndrome; Acute on chronic respiratory failure with hypoxia and hypercapnia ([facility]); Obesity hypoventilation syndrome ([facility]); Hypertension, unspecified type ([facility]); Varicose veins of both lower extremities, unspecified whether complicated; Gastroesophageal reflux disease, unspecified whether esophagitis present; 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 ([facility]); Mixed hyperlipidemia ([facility]); Long-term insulin use ([facility])Start: 04-29-2024 End: 91-17-7713Qzicsrkst encounterMounika Brooke MD Work Phone: noms NE FMComment on above:Care CoordinationStart: 04-23-2024 End: 25-62-9973Zsjedh Prasanna Meeks MD Work Phone: noms NB OPHTStart: 04-23-2024 End: 58-67-4641Lyrslc Prasanna Meeks MD Work Phone: noms NB OPHTStart: 04-23-2024 End: 27-99-8834Hijfdriu SupportPerlita Meeks MD Work Phone: noms NB OPHTComment on above:Retinal InjectionStart: 04-15-2024 End: 69-00-1020Okbzzr outpatient new 45 minutesPerlita Meeks MD Work Phone: noms NB OPHTComment on above: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, unspecified proliferative retinopathy type (CMS/HCC) (Primary Dx); 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1 diabetes mellitus ([facility]/HCC)Start: 04-15-2024 End: 04-53-0939Dsotjl Prasanna Meeks MD Work Phone: noms NB OPHTStart: 04-15-2024 End: 31-36-4466Kzdigc Prasanna Meeks MD Work Phone: noms NB OPHTStart: 03-11-2024 End: 77-92-5885druqpvtsolHkcurmk P COOKFacility:FTMCStart: 03-11-2024 End: 86-12-8103Uczowjh encounter procedureGregory P MARTHA [facility] Start: 03-06-2024 End: 88-16-9899ttenfppbquSyllhu R DolceFacility:FTMCStart: 03-06-2024 End: 38-67-0579Slsldnw encounter procedureKareem R [facility] Start: 02-28-2024 End: 41-12-9370ocyeedvujtOvzbqs R DolceFacility:FTMCStart: 02-28-2024 End: 39-88-3814Mhnbdsg encounter procedureKareem R [facility] Start: 02-28-2024 End: 78-30-6963klcknhfhgbYtqdjaj P COOKFacility:EU RichkStart: 02-28-2024 End: 92-93-1650Rwxxkqz encounter procedureGregory P MARTHA [facility] Start: 02-15-2024 End: 31-22-5865iblygwpkgdJhbliq J GaleaFacility:EU tart: 02-15-2024 End: 49-72-9387Abrrlqf encounter procedureAlysha J Galea [facility] Start: 02-14-2024 End: 43-49-1840uxtiwlegzuXlxwiic P COOKFacility:EU Richtart: 02-14-2024 End: 23-03-3258Jzhooer encounter procedureGregory P MARTHA [facility] Start: 02-09-2024 End: 65-60-5926pkkamqdsxmLkmtdr X OrzechFacility:EU [facility] Hospitaleduplanet KKtart: 02-09-2024 End: 35-11-3136Grtkpif encounter procedureAurora X Orzech [facility] Start: 02-05-2024 End: 42-58-9804hhaztichzjHaammxq P COOKFacility:FTMCStart: 02-05-2024 End: 91-83-1589Mncbgsm encounter procedureGregory P COOK [facility] Start: 01-31-2024 End: 06-02-5242tuxbdbtgbqGznsno Zarina HarringtonFacility:FTMCStart: 01-31-2024 End: 07-33-2946Tvauury encounter procedureKarpoornima R JuanyK[facility] Health [facility] Start: 01-23-2024 End: 50-07-8173rcnmfzarxmPgmz D DolceFacility:FTMCStart: 01-23-2024 End: 85-70-8134Phkzzan encounter procedureMarc D [facility] Start: 01-17-2024 End: 44-62-5552Bbe-admission assessmentMarc D [facility] Start: 01-15-2024 End: 26-97-3661Bshznqser department patient visitNicole Myers [facility] Start: 01-12-2024 End: 41-53-8015ouqhcndqomWHCLMOLS E PERRYFacility:EU NorkStart: 01-12-2024 End: 33-07-7131Izohwcv encounter procedureJENNIFER E DANRELL [facility] Start: 01-02-2024 End: 07-92-5903lcjtxeqlppColf D DolceFacility:FTMCStart: 01-02-2024 End: 98-47-9845Lwiycqj encounter procedureMarc D [facility] Start: 12-26-2023 End: 31-48-4078xiqbwibezhAcxv D DolceFacility:FTMCStart: 12-26-2023 End: 59-25-4205Atepscf encounter procedureMarc D [facility] Start: 12-19-2023 End: 47-86-0160wjimttulahZwmn D DolceFacility:FTMCStart: 12-19-2023 End: 02-64-8548Kecxnqa encounter procedureMarc D [facility] Start: 12-15-2023 End: 20-46-0381aqfrswtejzEqrxemp P COOKFacility:EU [place]walkStart: 12-15-2023 End: 19-57-5907Gsiiavz encounter procedureGregphi THOMAS [facility] Start: 12-12-2023 End: 56-61-8165ozkypyjnnnYfzg D DolceFacility:FTMCStart: 12-12-2023 End: 00-94-1992Fwcbadx encounter procedureMar D [facility] Start: 61-55-7280Ptiwncx encounter Jemima Truong APRN.MATCHING MACHINE OPERATOR Work Phone: [facility] MAINStart: 03-24-6884Lzrfqsqz Jacqueline Truong APRN.MATCHING MACHINE OPERATOR Work Phone: IF [facility] DEPARTMENTStart: 11-20-2023 End: 86-40-2328Mszfeur encounter procedureChristopherphi THOMAS [facility] Start: 06-90-5795Kddlrdrr Nina Herrera Work Phone: [facility]Start: 11-20-2023 End: 96-22-9713ipxoypagwhQkotpqj P COOKFacility:FTMCStart: 68-67-7627Jwh-patient / Non-visitMD Mounika Brooke Work Phone: [facility] Work Phone: Start: 91-06-3705Gyz-patient / Non-visitMD Mounika Brooke Work Phone: [facility] Work Phone: Start: 11-11-2023 End: 20-81-0747Jyxllixwaj and management of inpatientMD Mounika Brooke Work Phone: [facility] [place] [facility] Work Phone: Start: 11-11-2023 End: 73-01-3785Yjcljmalp department patient visitAlejandro SilvaK[facility] Health [facility] Start: 11-01-2023 End: 47-02-9214kgvgjbcjeoFdkrhwr P COOKFacility:EU kStart: 11-01-2023 End: 39-04-1924Ienxyuj encounter procedureGregphi THOMAS [facility] Start: 59-35-8643Dqylleegs encounterMounika Brooke MD Work Phone: NOCComment on above:Follow Up Phone Call (Post Discharge F/U - attempt made. No answer.)Start: 10-30-2023 End: 47-63-9048Ddvzxdjyg department patient visitStaci Beck [facility] Start: 10-23-2023 End: 11-28-2303Iyruaufmww and management of inpatientBASEM G DONAHUE [facility] 10-23-2023 End: 25-06-5041Suacpihyt Result EncounterGeneric External Data ProviderNOMS External Department UnsolicitedStart: 10-23-2023 End: 33-18-6986Optejgiaw Result EncounterGeneric External Data ProviderNOMS External Department UnsolicitedStart: 10-18-2023 End: 20-81-8385cwduemvulxGmiaudr P COOKFacility:[place] NorkStart: 10-18-2023 End: 28-62-4062Kfbcrhs encounter procedureGregory Jarad THOMAS [facility] Start: 10-15-2023 End: 32-80-6587Dlytiwsau department patient visitMone [facility] Start: 10-13-2023 End: 17-83-6449zfufmeorceFZ Mounika Brooke Work Phone: [facility] Work Phone: Start: 10-13-2023 End: 53-36-0416Wgpxxfh encounter procedureMD Mounika Brooke Work Phone: [facility]-Lab Main [place] Work Phone: Start: 75-56-2240Xvf-patient / Non-visitMD Mounika Brooke Work Phone: [facility] Nephrology Work Phone: Start: 47-10-6296Vcl-patient / Non-visitMD Mounika Brooke Work Phone: [facility] Nephrology Work Phone: Start: 39-55-3104Qnm-patient / Non-visitMD Mounika Brooke Work Phone: [facility] OutPt Work Phone: Start: 10-06-2023 End: 29-11-0454Zklgylzopd and management of inpatientMD Mounika Brooke Work Phone: [facility]-3 [place] [facility] Work Phone: Start: 10-05-2023 End: 02-08-7664xblzmxoqjyXsghqc X OrzechFacility:EU SuzannakStart: 10-05-2023 End: 49-01-6847Ldthxks encounter procedureAurora X Orzech [facility] Start: 10-04-2023 End: 42-07-9164rbwwghnhvtNxovoj R DolceFacility:FTMCStart: 10-04-2023 End: 24-93-5127Xlzzplz encounter procedureKareem R [facility] Start: 65-42-6687bshauvaqlqUrtn DolceFacility:EU BellevueStart: 10-02-2023 End: 77-98-8587ehcjywkzysOaem E. MouranyFacility:FTMCStart: 10-02-2023 End: 08-58-9800JzonamkrjUpli E. Mourany [facility] Start: 09-26-2023 End: 13-48-7464bsauatuztwYlwlso X OrzechFacility:EU BellevueStart: 09-25-2023 Sandy Brooke MD Work Phone: noms NE FMStart: 84-37-2388Gbcddbsruthi Brooke MD Work Phone: n[facility] NE FMStart: 09-24-2023 End: 36-70-7193Czipakuew department patient visitNodebora SumanSue Phan [facility] Start: 47-54-1901Tujew Lali Brooke MD Work Phone: noms NE FMStart: 09-18-2023 End: 78-43-7392Cro-admission assessmentMarc D [facility] Start: 09-17-2023 End: 81-51-2578Xrlbwkvnd department patient visitAstrit H MaureenUniversity Hospitals [facility] Start: 09-12-2023 End: 87-25-6349Wuoekfcisc and management of inpatientXXXX [facility]: 09-05-2023 End: 18-53-1315ttsfpymtklOrej D DolceFacility:[facility]: 09-05-2023 End: 41-80-0086Zvirecc encounter procedureMarc D [facility] Start: 08-30-2023 End: 63-84-3806Zspcuwx encounter procedureSukh Srinivasan [facility] Start: 08-24-2023 End: 84-24-3756Pswmlup encounter Felipe STROUD [phone]-XtoopSelect Medical Specialty [facility] Start: 08-16-2023 End: 66-96-4731Myuylah encounter procedureSukh Srinivasan [facility] Start: 08-06-2023 End: 66-93-5379Bzlekyzhx department patient visitAstrit H [facility] Start: 08-02-2023 End: 66-20-2585Tdwawgv encounter procedureSukh Srinivasan [facility] Start: 07-19-2023 End: 66-27-9710Sfqzzkv encounter procedureSukh Srinivasan [facility] Start: 06-28-2023 End: 53-06-0999Zjquhqo encounter procedureSukh Srinivasan [facility] Start: 06-26-2023 End: 15-71-5752Jvvvjyc encounter Felipe STROUD 056-2367Lkgpcv-FjbzpSelect Medical Specialty Hospital [facility] Start: 06-19-2023 End: 62-23-7477Tugiogbyii and management of inpatientDO Reid Mendy Work Phone: [facility] [place] [facility] Work Phone: Start: 06-11-2023 End: 90-40-4480Katizvrzxq and management of inpatientAlaasia RICARDOKettering Health Main Campus Start: 06-07-2023 End: 62-51-7970Mtmasda encounter procedureSukh Srinivasan [facility] Start: 05-24-2023 End: 57-82-7569Fws-SiteMigue STROUD 292-5390Qhndri-QpojkSelect Medical Specialty [facility] Start: 05-22-2023 End: 57-97-9863Hew Drop offMigue STROUD [facility] Start: 05-22-2023 End: 91-99-4639Aqsoqva encounter Felipe STROUD 098-5244Msgkje-AlqwySelect Medical Specialty [facility] Start: 05-08-2023 End: 09-58-3075Wlqoyhn encounter procedureBarubina Myah Mendez [facility] Start: 05-02-2023 End: 58-22-4705Fuv-admission assessmentKarpoornima Srinivasan [facility] Start: 05-01-2023 End: 07-37-5619Qnotauw encounter procedureKarpoornima [facility]an [facility] Start: 04-26-2023 End: 00-77-8918Lgxrnmt encounter procedureSukh Srinivasan [facility] start: 04-25-2023 End: 64-16-5313Tahbuak encounter procedureSmooth Elizondo [facility] Start: 04-19-2023 End: 26-13-9415Tosmapl encounter procedureSukh Zarina [facility] Start: 04-03-2023 End: 72-87-4634Wtlnwrr encounter procedureMigue STROUD 150-0609Zfwiau-BhzlkSelect Medical Specialty [facility] Start: 12-26-2022 End: 98-90-3223Mevjpar encounter procedureMigue STROUD 638-4749Llqzft-RevmxSelect Medical Specialty [facility] Start: 12-02-2022 End: 24-88-0968Itojyqb encounter procedureMigue STROUD 977-1258Elwqvw-OvrezSelect Medical Specialty Hospital [facility] Start: 09-21-2022 End: 02-88-4957Dln-SiteMigue STROUD 078-3747Aibobu-OxepgSelect Medical Specialty Hospital [facility] Start: 09-13-2022 End: 26-41-6727Xmqjfvo encounter procedureMigue STROUD 891-1836Hlbpko-KytuiSelect Medical Specialty Hospital [facility] Start: 08-21-2022 End: 90-80-5150Idg-SiteMigue STROUD 474-5004Nekydi-GwnmlSelect Medical Specialty Hospital [facility] Start: 08-04-2022 End: 86-65-5295Zvesmeqvu department patient Raphael Martinez [facility] Start: 03-29-2022 End: 33-92-7553Ijbcxbh encounter procedureMigue STROUD 165-9776Wxgess-OxtanSelect Medical Specialty Hospital [facility] Start: 03-21-2022 End: 42-73-0326Nlm-SiteMigue STROUD 849-1923Medwvu-VlbpmSelect Medical Specialty Hospital [facility] Start: 03-08-2022 End: 67-30-5120Cbedfxiel department patient visitJose Miguel Phan [facility] Start: 01-11-2022 End: 74-42-3671Wfsvfkj encounter procedureMigue STROUD 674-2790Bdydrq-HkhfaSelect Medical Specialty Hospital [facility] Start: 12-28-2021 End: 27-48-8678Mpq-SiteMigue STROUD 472-9433Znmefe-EuugaSelect Medical Specialty [facility] Procedures DateProcedureProcedure DetailPerforming ClinicianStart: 74-26-7335Fttf bld gluc mntr dev cleared fda spec home useKayla Sweeney MD Work Phone: Start: 06-02-2025 End: 47-82-3093Bmtmi medical xm&eval comprhnsv estab pt 1/>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, unspecified proliferative retinopathy type (HCC)Perlita Meeks MD Work Phone: comment on above: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, unspecified proliferative retinopathy type (HCC) (Primary Dx); 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1 diabetes mellitus (HCC)Start: 73-55-6190Axor bld gluc mntr dev cleared fda spec home useKayla Sweeney MD Work Phone: Start: 40-25-9792Wrfripduojlk njx pharmacologic agt Solo Meeks MD Work Phone: Start: 12-96-2797Vutltgxzifrf ophthalmic imaging Tricia Meeks MD Work Phone: Start: 75-49-2594Bhkb bld gluc mntr dev cleared fda spec home useKayla Sweeney MD Work Phone: Start: 31-67-8190TA CHEST 2 VIEWSDeshellie ROWAN Work Phone: start: 87-14-7332Ggrhayfjjj glycosylated n8qMojmjitJennifer ROWAN Work Phone: start: 94-90-6273Atbwyuxkkdvp njx pharmacologic agt Solo Meeks MD Work Phone: Start: 49-70-6653Hgaahebwmpiy ophthalmic imaging Tricia Meeks MD Work Phone: Start: 14-60-1570Dexysfyyoaxg njx pharmacologic agt Solo Meeks MD Work Phone: Start: 29-23-2644Izhgqzvavrru ophthalmic imaging Tricia Meeks MD Work Phone: Start: 35-57-2236Gpkai chest X-rayMD Mounika Brooke Work Phone: start: 62-04-1548Dfypp cultureMD Mounika Brooke Work Phone: start: 53-18-2773Mjf routine ecg w/least 12 lds w/i&r Generic External Data ProviderStart: 75-46-9510Cqbbrgcyacbonyf of bilateral kidneysMD Mounika Brooke Work Phone: start: 90-08-8251Cilgm chest X-rayMD Mounika Brooke Work Phone: start: 20-35-4368Ychaj culture for bacteria, including anaerobic screenMD Mounika Brooke Work Phone: start: 83-56-1395YPAU-CoV-2, Influenza & RSV (PCR)MD Mounika Brooke Work Phone: start: 30-39-7216Exfts chest X-rayDO Art Kirby Start: 20-11-0192MVXW-CoV-2, Influenza & RSV (PCR)DO Reid Brooke Work Phone: Start: 53-49-9363Wiqvpwfc extraction and insertion of intraocular lensMigue STROUD Comment on above:LEFTStart: 56-09-2340Xnlmuxgr extraction and insertion of intraocular lensMigue STROUD Comment on above:rightStart: 43-24-3641Abpurtqd AND drainageMigue STROUD Comment on above:Left footStart: 55-19-3899Zezda thickness skin graftMigue STROUD Comment on above:left footStart: 64-21-9536nnrcrrhh preparation of left foot ulceration for skin grafting with versajet and application of stravix skin graft to left foot ulcerMigue STROUD Start: 26-13-8135soef foot TMA with packing, partial closureMigue STROUD Start: 08-82-7719lsjizml secondary closure of the left foot wound with VersaJet debridement as well as pulse lavage.excision of ulceration to the plantar left foot with single lobe rotation skin plasty flap for closureMigue STROUD Start: 06-14-7085rzms transmetatarsal amputation with partial closure with iodoform gauze packing. incision and drainage of left infected foot with Pulsavac and pulse lavageMigue STROUD Start: 24-50-9296dsepsnszdm wound debridement to right subfourth metatarsal head ulceration with Versa jet sharp debridement as well as application of DermagraftJekeily STROUD Start: 51-25-0773xvxy incision and drainage of foot abscess with wound cultures as well as partial fifth ray amputation with digit, left foot, with pulsed lavageMigue STROUD History of amputation of footAcquired absence of left foot (CMS/HCC)Mounika Brooke MD Work Phone: Umbilical Hernia RepairMigue STROUD Plan of Treatment DateCare ActivityDetailAuthorStart: 18-14-5170Kjweiquf screeningDiabetes: Retinopathy ScreeningNOIL HealthcareStart: 46-38-2341Ydtde screening for protein Diabetes: Urine Protein ScreeningNOIL HealthcareStart: 42-44-1571Euxlp screening for proteinDiabetes: Urine Protein ScreeningNOIL HealthcareStart: 12-01-2025 End: 29-14-5098Ipwrekd encounter dsvuykbah38/13/2026 8:30 AM EDT Office Visit [facility] [address] [place] [phone] Perlita Meeks MD [address] [place] [address] [facility] EyeStart: 09-05-2025 Hemoglobin A1c measurementDiabetes: Hemoglobin H6GKUTT HealthcareStart: 09-04-2025 End: 23-06-0418Pjxzjuf encounter ssftcsqpu51/15/2026 1:10 PM EST Office Visit [facility] [address] [place] [address] Kayla Sweeney MD [address] [place] [address] [facility]E [facility] EndocrinologyStart: 75-56-5941Pouotnnd screeningDiabetes: Retinopathy ScreeningNOIL HealthcareStart: 06-05-2025 End: 79-99-5009Sjwdjoe encounter procedureNOMS Duron EndocrinologyComment on above:ArrivedStart: 06-02-2025 End: 15-85-4034Bnguhdq encounter duwjdrpep10/13/2025 8:30 AM EDT Office Visit [facility] [address] [place] [address] Perlita Meeks MD [address] [place] [address] [facility]rivedHighland Community Hospital EyeComment on above:ArrivedStart: 05-01-2025 End: 88-10-2682Itncxtj encounter qtwhsvads53/11/2025 8:15 AM EDT Office Visit [facility] [address] [place] [address] Perlita Meeks MD [address] [place] [address] [facility] EyeStart: 04-29-2025 Medicare Annual Wellness (AWV)Medicare Annual Wellness (AWV)[facility] Start: 04-29-2025 End: 47-37-2040Yyagjqo encounter jfjryywbg00/09/2025 11:00 AM EDT Office Visit [facility] [address] [place] [phone] Mounika Brooke MD [address] [place] [address] [facility]EastPo[facility] Family MedicineComment on above:Arrived Start: 60-91-7955Zarqtwbj screeningDiabetes: Retinopathy ScreeningNOIL HealthcareStart: 98-92-0777Mkgunsikz vaccinationInfluenza Vaccine (#1)NOMS HealthcareStart: 86-11-7725Sorxbxmi screeningDiabetes: Retinopathy ScreeningNOIL HealthcareStart: 03-13-2025 End: 65-18-9638Vxotsdi encounter fwumydpho84/24/2025 12:20 PM EDT Office Visit [facility] [address] [place] [address] [phone], Hanna M, MD [address] [place] [address] ArrivedNOSEILING REGIONAL [facility]ILING FMComment on above:ArrivedStart: 23-19-8219Yeshe screening for proteinDiabetes: Urine Protein ScreeningBEAR RIVER [facility] HealthcareStart: 02-05-2025 End: 66-50-0509Neqyvnn encounter enojflgdy68/18/2025 12:20 PM EDT [facility] [address] [place] [address] [phone], Hanna M, MD [address] [place] [address] [facility] FMStart: 12-31-2024 End: 86-32-1970Eqfcwgz encounter xesgwktce45/13/2025 2:20 PM EDT Office Visit [facility] [address] [place] [phone] Kayla Sweeney MD [address] [place] [address] [facility] ENDOCRINOLOGYStart: 12-26-2024 End: 96-76-3185Qhsgqtj encounter agrngtrsq02/08/2025 3:20 PM EDT Office Visit [facility] [address] [place] [address] Mounika Brooke MD [address] [place] [address] [facility] FMStart: 12-26-2024 End: 20-76-2933HDH W Auto Differential panel - BloodCBC and differential Lab Routine Muscle cramps Expected: 12/26/2024 (Approximate), Expires: 12/26/2025 [facility] Work Phone: comment on above:Expected: 12/26/2024 (Approximate), Expires: 12/26/2025Start: 12-26-2024 End: 84-44-1103Frtxtrexkayvr metabolic 2000 panel - Serum or PlasmaComprehensive metabolic panel Lab Routine Muscle cramps Expected: 12/26/2024 (Approximate), Expires: 12/26/2025NOIL HealthcareComment on above:Expected: 12/26/2024 (Approximate), Expires: 12/26/2025Start: 12-26-2024 End: 04-26-1511Spznvtalm [Mass/volume] in Serum or PlasmaMagnesium Lab Routine Muscle cramps Expected: 12/26/2024 (Approximate), Expires: 12/26/2025NOIL HealthcareComment on above:Expected: 12/26/2024 (Approximate), Expires: 12/26/2025Start: 12-04-2024 End: 28-73-8378Ohsxrqs encounter anzsdvvic10/16/2025 2:40 PM EDT Office Visit [facility] [address] [place] [phone] Kayla Sweeney MD [address] [place] [address] NOMS ENDOCRINOLOGYStart: 19-29-5299Hxhyczidrq A1c measurementDiabetes: Hemoglobin M5QOFNX HealthcareStart: 11-21-2024 End: 81-53-4903Hhmlzyc encounter uejumrtef55/03/2025 1:30 PM EDT Office Visit [facility] [address] [place] [address] Perlita Meeks MD [address] [place] [address] NOMS OPHTStart: 30-28-6746Oegydnme blood count Hemoglobin/HematocritCleelyria memorial hospital ClinicStart: 48-91-1344Krozmfkirc measurement Serum CreatinineKettering Health Springfieldtart: 07-67-1615Axdjfvnaz B surface antibody levelLDL CholesterolCleelyria memorial hospital ClinicStart: 13-66-1171Cwljqmygux A1c measurement Diabetes: Hemoglobin R1CYDNE HealthcareStart: 09-04-2024 End: 52-11-0211Ogucjln encounter procedureNOCENTERPOINTE HOSPITAL ENDOCRINOLOGYComment on above: Type 2 diabetes mellitus with hyperglycemia, with long-term current use of insulin ([facility])Start: 09-04-2024 End: 031636-mnfszymodnopre D3 [Mass/volume] in Serum or PlasmaVitamin D 25 hydroxy Total Lab Routine Type 2 diabetes mellitus with hyperglycemia, with long-term current use of insulin ([facility]) Expected: 09/04/2024 (Approximate), Expires: 09/04/2025[facility] HealthcareComment on above:Expected: 09/04/2024 (Approximate), Expires: 09/04/2025Start: 09-04-2024 End: 80-77-5222T-peptideC-peptide Lab Routine Type 2 diabetes mellitus with hyperglycemia, with long-term current use of insulin ([facility]) Expected: 09/04/2024 (Approximate), Expires: 09/04/2025[facility] Work Phone: Comment on above:Expected: 09/04/2024 (Approximate), Expires: 09/04/2025Start: 09-04-2024 End: 30-86-0447Shpnv 1996 panel - Serum or PlasmaLipid panel Lab Routine Type 2 diabetes mellitus with hyperglycemia, with long-term current use of insulin ([facility]) Expected: 09/04/2024 (Approximate), Expires: 09/04/2025[facility] Healthcare Comment on above:Expected: 09/04/2024 (Approximate), Expires: 09/04/2025Start: 09-04-2024 End: 41-21-9498Bdevrqtdhtbo/Creatinine panel in random UrineMicroalbumin / creatinine urine ratio Lab Routine Type 2 diabetes mellitus with hyperglycemia, withlong-term current use of insulin ([facility]) Expected: 09/04/2024 (Approximate), Expires: 09/04/2025[facility] HealthcareComment on above:Expected: 09/04/2024 (Approximate), Expires: 09/04/2025Start: 09-04-2024 End: 59-17-5849Nuubo function panelRenal function panel Lab Routine Type 2 diabetes mellitus with hyperglycemia, with long-term current use of insulin ([facility]/HCC) Expected: 09/04/2024 (Approximate), Expires: 09/04/2025[facility] Comment on above:Expected: 09/04/2024 (Approximate), Expires: 09/04/2025Start: 05-51-7778Aissr screening for proteinDiabetes: Urine Protein ScreeningNOIL HealthcareStart: 07-22-2024 End: 63-24-0433Xflqxuyy Lzflmsq5207/22/2024 2:15 PM EST Clinical Support [facility] [address] [place] [address] Perlita Meeks MD [address] [place] [address] [facility] OPHTStart: 07-15-2024 End: 59-50-0083Zrrbi samjqsrkdei12/25/2024 Abstract [facility] [address] [place] [address] Kayla Sweeney MD [address] [place] [address] [facility] ENDOCRINOLOGYStart: 07-15-2024 End: 81-19-8555Isufgii encounter ittkemevk17/25/2024 1:40 PM EST [facility] [address] [place] [phone] Kayla Sweeney MD [address] [place] [address] [facility] ENDOCRINOLOGYStart: 07-11-2024 End: 82-48-1503Zdasqmnc SupportNOCOX WALNUT LAWN OPHTComment on above:ArrivedStart: 06-27-2024 End: 13-00-5119Oiahkcdx Fitdjid3406/27/2024 2:15 PM EST Clinical Support [facility] [address] [place] [address] Perlita Meeks MD [address] [place] [address] NOMS NB OPHTStart: 06-21-2024 End: 69-56-6949QW Chest 2 ViewsXR chest 2 views Imaging Routine Chronic cough Chest wall pain Expected: 06/21/2024, Expires: 06/21/2025[facility] Work Phone: comment on above:Expected: 06/21/2024, Expires: 06/21/2025Start: 06-21-2024 End: 05-31-3340Zanqbgt encounter gsxwpfxuq83/01/2024 1:30 PM EDT Office Visit [facility] [place] [address] [place] [phone] Jennifer Short PA [address] [place] [address] ArrivedNOMS NE FMComment on above:ArrivedStart: 05-23-2024 End: 57-02-6784Oyhbxevu Fofijmn0805/23/2024 10:15 AM EDT Clinical Support [facility] [address] [place] [address] Perlita Meeks MD [address] [place] [address] NOMS NB OPHTStart: 05-22-2024 End: 06-90-0580Icevvcfa Pnzqftr2605/22/2024 2:00 PM EDT Clinical Support [facility] [address] [place] [address] Perlita Meeks MD [address] [place] [address] ArrivedNOIL NB OPHTComment on above:ArrivedStart: 04-29-2024 End: 44-19-4979Jczfvtb encounter ryhsbxjfy15/09/2024 2:00 PM EDT Office Visit [facility] [address] [place] [address] Mounika Brooke MD [address] [place] [address] ArrivedNOMS NE FMComment on above:ArrivedStart: 04-23-2024 End: 23-45-4543Iukvyprk Athglfk8004/23/2024 10:45 AM EDT Clinical Support [facility] [address] [place] [address] Perlita Meeks MD [address] [place] [address] ArrivedNOMS NB OPHTComment on above:ArrivedStart: 04-21-2024 Influenza vaccinationInfluenza Vaccine (#1)NOM[facility] HealthcareStart: 04-15-2024 End: 55-14-9683Sqtxyri encounter ysqgajurz35/26/2024 2:30 PM EDT Office Visit [facility] [address] [place] [address] Perlita Meeks MD [address] [place] [address] ArrivedNOMS NB OPHTComment on above:ArrivedStart: 01-24-2024 Hemoglobin A1c measurementKettering Health Springfieldtart: 95-23-1277NzujaxbpvWadsworth-Rittman Hospitaltart: 69-09-7638Twxncoye admissionWadsworth-Rittman Hospitaltart: 57-83-4327XlqqdqsjfWadsworth-Rittman Hospitaltart: 11-11-2023 Referral to nephrologistWadsworth-Rittman Hospitaltart: 10-12-2023 [facility]: 83-62-8315Ldbgrypp to safe and vault installer [facility]: 08-99-5976Junvhnnr admissionWadsworth-Rittman Hospitaltart: 56-52-4862VwunaqjkgWadsworth-Rittman Hospitaltart: 91-81-6295Fuhla chest X-rayXR chest 1V portableUniversity Hospitals Geaug[facility] Start: 13-46-4633CN Chest Single viewWadsworth-Rittman Hospitaltart: 18-79-6991Xtfnbtqv identified in Blood by CultureWadsworth-Rittman Hospitaltart: 09-25-2023 End: 09-84-7145Fqtffja encounter procedureNOMS NE FMComment on above:Arrived Start: 19-25-9641Ochaswjyik Health ScreeningBehavioral Health ScreeningKettering Health Springfieldtart: 13-19-9844Vyxdzeurda AssessmentDepression AssessmentKettering Health Springfieldtart: 09-60-5821Hucbd chemistryWadsworth-Rittman Hospitaltart: 90-40-4025JspxqjaeoWadsworth-Rittman Hospitaltart: 61-52-2475Cikbe chemistry [facility]tart: 31-62-0487UxgvqcumpWadsworth-Rittman Hospitaltart: 89-11-8263Bohnr [facility] Centertart: 06-21-2023 End: 19-26-8590FdmabetowWadsworth-Rittman Hospitaltart: 05-87-1975Cxskwczmfqoj [facility]tart: 21-30-1858Xvvaw chemistryWadsworth-Rittman Hospitaltart: 11-99-5404OjnpojwseWadsworth-Rittman Hospitaltart: 44-71-0863Grofsqcoftxspg of prophylactic treatmentWadsworth-Rittman Hospitaltart: 24-51-3888Vjtlr [facility] Centertart: 98-25-8871CyvufgkkiWadsworth-Rittman Hospitaltart: 99-00-5048Hxzipaxr admission [facility]tart: 96-42-3799MqbgozumaWadsworth-Rittman Hospitaltart: 19-15-7740Nrvlt chest X-rayXR chest 1V portableWadsworth-Rittman Hospitaltart: 74-12-3986WW Chest Single viewWadsworth-Rittman Hospitaltart: 99-00-4611Ecync-19 Vaccine ( season)Covid-19 Vaccine ( season)[facility]: 12-88-5298Pcwyjtviavsc vaccination Pneumococcal Vaccine (2 of 2 - PCV)[facility]: 30-90-6173Akjlnqtwfcyj Vaccine: 65+ Years (2 of 2 - PCV)Pneumococcal Vaccine: 65+ Years (2 of 2 - PCV) [facility] HospitalStart: 09-38-3560LRW Vaccine (1 - 1-dose 60+ series)RSV Vaccine (1 - 1-dose 60+ series)[facility]: 31-93-0506Fwngaukt specific antigen measurementProstate Cancer Screening DiscussionKettering Health Springfieldtart: 99-09-2307Xvnhhitj Vaccine (1 of 2)Shingrix Vaccine (1 of 2)[facility] Start: 03-87-8662Twtutewjw for malignant neoplasm of colonKettering Health Springfieldtart: [phone] microalbumin profileDTaP,Tdap,Td Vaccine (1 - Tdap)[facility]: [phone] PCP Team Chronic Disease VisitAnnual PCP Team Chronic Disease VisitKettering Health [facility]tart: [id number] Controlled (<130/80)BP Controlled (<130/80)[facility]: [phone] C screening Hepatitis C ScreeningKettering Health Springfieldtart: [phone] screeningHIV Screening [facility]: 93-36-0687Apnjfiao foot examinationDiabetic Foot Exam [facility]: 35-94-3279Zetxzqkq screeningBarnes-Jewish Saint Peters HospitalStart: 58-76-2821Iplavwkly B screeningUrine Albumin:Creatinine RatioMemorial Health [facility] Start: 65-72-7957Cjojhvjjsn A1c measurementDiabetes: Hemoglobin P6FVDVXBarnes-Jewish Saint Peters HospitalStart: 1959Medicare Annual Wellness (AWV)Medicare Annual Wellness (AWV)[facility] HealthcareStart: 56-90-3850Orjpxylfc for malignant neoplasm of colonBEAR [facility]IVER VALLEY [facility] HealthcareAnion gap measurementUniversity Hospitals Geauga Medical Center Basophils [#/volume] in Blood by Automated [facility] HospitalBasophils/100 leukocytes in Blood by Automated [facility] HospitalEosinophils [#/volume] in [facility] Eosinophils/100 leukocytes in Blood by Automated [facility] HospitalErythrocyte distribution width [Ratio] by Automated [facility] HospitalErythrocytes [#/volume] in [facility] HospitalHematocrit [Volume Fraction] of [facility] HospitalHemoglobin [Mass/volume] in BloodUniversity Hospitals Geauga [facility] Center Leukocytes [#/volume] corrected for nucleated erythrocytes in Blood by Automated counUniversity Hospitals Geauga Medical CenterLeukocytes [#/volume] in BloodUniversity Hospitals Geauga Medical CenterLymphocytes [#/volume] in Blood by Automated count [facility]auga Medical CenterLymphocytes/100 leukocytes in Blood by Automated [facility] HospitalMCH [Entitic mass] by Automated countUniversity Hospitals Geauga Medical CenterMCHC [Mass/volume] by Automated count [facility]aug[facility] Medical CenterMCV [Entitic volume] by Automated count [facility]aug[facility] Medical CenterMonocytes [#/volume] in Blood by Automated countUniversity Hospitals Geauga Medical CenterMonocytes/100 leukocytes in Blood by Automated [facility] HospitalNeutrophils [#/volume] in Blood by Automated [facility] HospitalNeutrophils/100 leukocytes in Blood by Automated [facility] HospitalNucleated erythrocytes [Presence] in Blood by Automated [facility] HospitalOptical coherence tomography study reportOCT, Retina - OU - Both Eyes Ophthalmology Routine 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, unspecified proliferative retinopathy type (HCC) Ordered: [facility] Work Phone: comment on above:Ordered: 06/02/2025Patient Education [facility] Work Phone: [facility] referralGrand Lake Joint [facility] Work Phone: Platelet mean volume [Entitic volume] in Blood by Automated [facility] HospitalPlatelets [#/volume] in Blood [facility] Immunizations Immunization DateImmunizationNotesCare SdecwowqHjhcmbzr69-69-6568Spoflewddosn Conjugate PCV 20Mounika Brooke MD Work Phone: [facility] HospitalPjirkvrkrz14-26-2739Ifphirth, trivalent, recombinant, injectable influenza vaccine, preservative freeMounika Brooke MD Work Phone: noMiss[facility] CenterCevdwhcwlj50-68-8799drhzwwdbl virus vaccine, unspecified formulationMounika Brooke MD Work Phone: [facility] HospitalNeserxntpp76-78-1638ipzmdmshme skin test; purified protein derivative solution, intradermalMounika Brooke MD Work Phone: [facility] HospitalDyeowdnbgn94-79-2333nacyyycpdj skin test; purified protein derivative solution, intradermalMounika Brooke MD Work Phone: noMiss[facility] Medical CenterMyavsyiema50-03-7977edwybgvbs, injectable, quadrivalent, preservative freeMigue STROUD 759-7759Qhmhon-PcjgbSelect [facility] 96-05-0528zpzcpgewk virus vaccine, unspecified formulationPerlita Meeks MD Work Phone: noMiss[facility] Medical CenterYzsgvpdups12-96-2634CHHRE-57, mRNA, LNP-S, bivalent booster, PF, 30 mcg/0.3 mL doseKevin Juan 069-7977Hoonrj-VqasaSelect [facility]ty [facility] 12-79-2657tvftmnqku, injectable, quadrivalent, preservative freeMone Martinez 982-1958Joookt-VozeeSelect [facility]ty [facility] 19-31-1582YKYH-CoV-2, UnspecifiedMounika Brooke MD Work Phone: [facility] HospitalJgqpmrgdnm16-88-7046BAMYA-30, mRNA, LNP-S, PF, 100 mcg or 50 mcg doseMigue STROUD 524-0764Kdztir-BbawdSelect [facility]ty [facility] 11-570910-80-5039zezifvhuc, injectable, quadrivalent, preservative freeMigue STROUD 583-3409Cxjdce-ClponSelect Medical Specialty Hospital [facility] 04-285565-32-0865XLSD-LgL-3 (COVID-19) mRNA-1273 vaccine Migue STROUD 109-4700Tpimgf-TceevSelect [facility]ty [facility] 03-709630-22-6281EWUL-NgY-9 (COVID-19) cXOB-2080 vaccine Migue STROUD 847-9195Wroukg-ZzubySelect [facility]ty [facility] 10119488-75-0660qqvhogvoz, injectable, quadrivalent, contains preservativeMigue STROUD 082-7784Svigpf-PusmwSelect [facility]ty [facility] 12297727-40-9887qgyiqqwkc virus vaccine, unspecified formulationNo Sylvester [facility]12-18-2018influenza, injectable, quadrivalent, contains preservativeMounika Brooke MD Work Phone: [facility] HospitalAqvwhlubjs43-30-6928sxuivlnbbpaz polysaccharide vaccine, 23 valentJekeily KLINEWOOD 158-4292Scpeyp-OvhvxSelect [facility] 04589266-49-6844tymfjyprqlkp polysaccharide vaccine, 23 valentJose [facility] Payers DatePayer CategoryPayerPolicy [id number]-[id number] 1914Mjpipzg Health [id number] [id number] UnknownDEVOTED HEALTH [facility]LY [facility] [id number] 2023-Present [address] [place] [id number] 2023Medicare [id number] 2023Medicaid [id number] [id number] 2023Medicare (Managed Care) [id number] 2016Medicare 1.2.840.125814.1.13.159.2.7.3.[id number] 2.16.840.1.771540.3.579.2.40334-07-5719Jpllsoh95860364 2.16840.1.034140.3.579.2.81509-82-1825Bskrfqv37109277 2.16840.1.330731.3.579.2.99221-38-2383Adsfdpn08678071 2.16840.1.014991.3.579.2.55823-68-9405Zkylfio43917242 2.16840.1.236516.3.579.2.77855-37-0678Swqgxgk95999761 2.16840.1.270531.3.579.2.16032-73-7716Rlrgqbe85450305 2.16.840.1.866592.3.579.2.32419-24-9442Hrvpgha56267121 2.16.840.1.040306.3.579.2.48565-26-1871Wcdjrcf28913441 2.16840.1.313710.3.579.2.92374-25-4367Fotcuey07775985 2.16840.1.476382.3.579.2.35656-13-6583Qmhsiaf28480512 2.16.840.1.627693.3.579.2.68077-08-6524Ehajplh21803879 2.16.840.1.095896.3.579.2.42112-86-8974Fbppzyt29328350 2.16.840.1.198533.3.579.2.08003-40-3053Inhphnv61630818 2.16.840.1.917813.3.579.2.02806-61-8980Vvvtwfy95895685 2.16.840.1.167484.3.579.2.13357-45-2450Eridugr51670773 2.16.840.1.341180.3.579.2.55267-95-4496Liyoqfh93032735 2.16.840.1.685405.3.579.2.25634-99-4901Quewzjz84747351 2.16.840.1.551500.3.579.2.46215-16-9373Dtueyng96125268 2.16.840.1.125019.3.579.2.88542-01-7723Tlvictb63734832 2.16.840.1.634814.3.579.2.00408-06-2774Zpryuxq34422645 2.16.840.1.334252.3.579.2.26476-35-9548Sbjbbwo78848450 2.16.840.1.197105.3.579.2.10594-91-0590Zzvevbz19145996 2.16.840.1.291555.3.579.2.14081-22-3528Cesynij73736868 2.16.840.1.851843.3.579.2.96781-95-6181Dhdycai52045304 2.16.840.1.438747.3.579.2.09472-26-8716Vqwubgv65005051 2.16.840.1.746195.3.579.2.78139-26-9295Igmunlj64795714 2.16.840.1.278256.3.579.2.90712-51-4174Uycwbnr60621700 2.16.840.1.496170.3.579.2.66098-52-1480Ryyakso14152289 2.16.840.1.547568.3.579.2.38191-61-9773Kvptyzh84845602 2.16.840.1.011989.3.579.2.36385-74-5627Rjyrvbx64709372 2.16.840.1.594672.3.579.2.95885-88-5365Cmfdpiy72900961 2.16.840.1.755962.3.579.2.95770-63-3282Fkgbtpa42046002 2.16.840.1.692076.3.579.2.68383-03-4149Ffmgluo85995085 2.16.840.1.551268.3.579.2.73990-62-5672Frsaehh45222784 2.16.840.1.067348.3.579.2.30151-91-9873Xymoclw90050713 2.16.840.1.587781.3.579.2.72441-33-6042Uupbldu69600675 2.16.840.1.989691.3.579.2.93948-18-5646Pmzpncg06687753 2.16.840.1.724231.3.579.2.83945-50-7611Lornyal59668285 2.16.840.1.665793.3.579.2.99392-31-2777Epmpqns57702569 2.16.840.1.023727.3.579.2.76867-19-3772Suslvdl48340524 2.16.840.1.418568.3.579.2.11067-07-0145Kkgjrlz88169380 2.16.840.1.090399.3.579.2.11378-75-6145Tqmwqpb84387363 2.16.840.1.708213.3.579.2.28400-09-7871Mgbacoc47687709 2.16.840.1.741653.3.579.2.01389-87-0406Cubzvps66787635 2.16.840.1.991946.3.579.2.10804-44-0016Agfhgdn17997361 2.16.840.1.573974.3.579.2.30823-02-6049Wrlbsxk99521299 2.16.840.1.902525.3.579.2.67179-08-2937Yprikpn49396344 2.16.840.1.114281.3.579.2.37455-49-4090Ulveugu81706632 2.16.840.1.011084.3.579.2.74566-19-6880Cmfjwle84198025 2.16.840.1.650230.3.579.2.36344-47-5537Qnxzexf17283556 2.16.840.1.237271.3.579.2.47106-45-9893Lecnxpd81368203 2.16.840.1.287877.3.579.2.36585-64-5329Tabjcgf40201277 2.16.840.1.901569.3.579.2.45055-53-4480Vewqdne34828149 2.16.840.1.673461.3.579.2.265137-68-4164Urizpmf05168136 2.16.840.1.901565.3.579.2.985055-64-8055Vejsczv39582931 2.16.840.1.955284.3.579.2.425642-71-7548Cuxaqcd16186949 2.16.840.1.666834.3.579.2.082056-84-2682Vdsuomi00920699 2.16.840.1.553230.3.579.2.321256-91-0980Bcocppt9371265 2.840.1.212492.3.579.2.448898-03-1326Fbhrizl4915086 2.840.1.551909.3.579.2.067891-39-9877Zcbgxhb7087115 2.840.1.081195.3.579.2.232779-50-4890Bsuumuu3239118 2.840.1.473307.3.579.2.616766-46-8071Qmvzncp7354722 2.840.1.347875.3.579.2.342156-42-7496Pvuvipq6044088 2.840.1.503649.3.579.2.654758-88-4109Zwmprnx3138118 2.840.1.243001.3.579.2.371122-17-5858Uoqmzsa2221121 2.840.1.196379.3.579.2.996110-45-1785Vyznqvh9549264 2.16.840.1.102313.3.579.2.713756-26-3429Ebmcoma75900995 2.16840.1.663335.3.579.2.89603-59-0983Hewqqhc17325407 2..840.1.937141.3.579.2.88603-75-7427Qknutae76014438 2..840.1.673460.3.5[id number] ..840.1.193246.3.579.2.531 Social History DateTypeDetailFacilityStart: 12-28-2021 End: 22-40-0737Vjctnwh smoking statusNever smoked tobacco (finding)[facility] Start: 32-52-2436Iykaxpg smoking statusNePremier Health [facility] Start: 09-06-2023 End: 43-58-6623Muf Assigned At [facility] Start: 77-02-8652Igp [facility] At [facility]: 76-02-2411Kbwiooh use and exposureSmokeless tobacco non-userNOMS HealthcareStart: 09-06-2023 End: 44-14-3690Pewfybr intakeLifetime non-drinker (finding)[facility] HealthcareStart: 09-06-2023 End: 79-38-1770Wopjrtf of Social functionNOMS HealthcareStart: 35-10-0291Eiqmjsq Commentcaffeine 1-2 cups per dayNOMS HealthcareStart: 04-44-7561Ojo Assigned At BirthNot on fileNOMS HealthcareStart: 62-70-0589Gqzostl intakeCurrent non- drinker of alcohol (finding)[facility] Start: 40-97-7900IcwGaet (finding)[facility] CampusHow hard is it for you to pay for the very basics like food, housing, medical care, and heatingSomewhat hardNOMS HealthcareDo you feel stress - tense, restless, nervous, or anxious, or unable to sleep at night because yourmind is troubled all the time - these days [OSQ]Very muchNOMS HealthcareIn the past 12 months, was there a time when you were not able to pay the mortgage or rent on time?YesNOMS HealthcareAt any time in the past 12 months, were you homeless or living in prison [including now]?NoNOMS Healthcare Medical Equipment Procedure CodeEquipment CodeEquipment Original TextEquipment IdentifierDates Glucometer test strips, See Instructions, 100 strip(s), 11, Test TID DX E11.40 on insulin, [facility] #[id number], Supply, 182, cm, 10/01/21 10:14:00 EST, Height/Length Dosing, 131.2, kg, 10/01/21 10:14:00 EST, Weight DosingStart: 15-74-3924otzfnqm, See Instructions, 100 EA, 11, test blood sugar tid dx E11.9 on insulin, [facility] #[id number], Supply, 182, cm, 10/01/21 10:14:00 EST, Height/Length Dosing, 131.2, kg, 10/01/21 10:14:00 EST, Weight DosingStart: 99-80-2604Wltbiaegxl test strips, See Instructions, 100 strip(s), 11, Test TID DX E11.40 on insulin, [facility] #50247, Supply, 182, cm, 10/01/21 10:14:00 EST, Height/Length Dosing, 131.2, kg, 10/01/21 10:14:00 EST, Weight DosingStart: 33-67-9829oqiqftn, See Instructions, 100 EA, 11, test blood sugar tid dx E11.9 on insulin, [facility] #40834, Supply, 182, cm, 10/01/21 10:14:00 EST, Height/Length Dosing, 131.2, kg, 10/01/21 10:14:00 EST, Weight DosingStart: 12-91-4482Orlifmlrqy test strips, See Instructions, 100 strip(s), 11, Test TID DX E11.40 on insulin, [facility] #[id number], Supply, 182, cm, 10/01/21 10:14:00 EST, Height/Length Dosing, 131.2, kg, 10/01/21 10:14:00 EST, Weight DosingStart: 57-94-1263doidxmj, See Instructions, 100 EA, 11, test blood sugar tid dx E11.9 on insulin, [facility] #56855, Supply, 182, cm, 10/01/21 10:14:00 EST, Height/Length Dosing, 131.2, kg, 10/01/21 10:14:00 EST, Weight DosingStart: 57-59-6761Tajbhwngev test strips, See Instructions, 100 strip(s), 11, Test TID DX E11.40 on insulin, [facility] #[id number], Supply, 182, cm, 10/01/21 10:14:00 EST, Height/Length Dosing, 131.2, kg, 2 10:14:00 EST, Weight DosingStart: 21-76-7907iwquxzo, See Instructions, 100 EA, 11, test blood sugar tid dx E11.9 on insulin, [facility] #20116, Supply, 182, cm, 10/01/21 10:14:00 EST, Height/Length Dosing, 131.2, kg, 10/01/21 10:14:00 EST, Weight DosingStart: 45-60-0470Qykqaqazep test strips, See Instructions, 100 strip(s), 11, Test TID DX E11.40 on insulin, [facility] #[id number], Supply, 182, cm, 10/01/21 10:14:00 EST, Height/Length Dosing, 131.2, kg, 10/01/21 10:14:00 EST, Weight DosingStart: 03-15-9258rpttgqa, See Instructions, 100 EA, 11, test blood sugar tid dx E11.9 on insulin, [facility] #49824, Supply, 182, cm, 10/01/21 10:14:00 EST, Height/Length Dosing, 131.2, kg, 10/01/21 10:14:00 EST, Weight DosingStart: 76-95-2287Mrrxzfyxen test strips, See Instructions, 100 strip(s), 11, Test TID DX E11.40 on insulin, [facility] #[id number], Supply, 182, cm, 10/01/21 10:14:00 EST, Height/Length Dosing, 131.2, kg, 10/01/21 10:14:00 EST, Weight DosingStart: 46-86-7298puwoayv, See Instructions, 100 EA, 11, test blood sugar tid dx E11.9 on insulin, [facility] #35421, Supply, 182, cm, 10/01/21 10:14:00 EST, Height/Length Dosing, 131.2, kg, 10/01/21 10:14:00 EST, Weight DosingStart: 07-09-8630Mftaowpbfr test strips, See Instructions, 100 strip(s), 11, Test TID DX E11.40 on insulin, [facility]#[id number], Supply, 182, cm, 09/13/22 13:17:00 EST, Height/Length Dosing, 140.8, kg, 09/13/22 13:17:00 EST, Weight DosingStart: 43-04-8572Vwtfyhi [place] 31g x 8 mm, See Instructions, 450 EA, 4, Use up to 4 daily, [facility] #[id number], Supply, 182, cm, 09/13/22 13:17:00 EST, Height/Length Dosing, 140.8, kg, 09/13/22 13:17:00 EST, WeightDosingStart: 72-28-0229uxgncrr, See Instructions, 100 EA, 11, test blood sugar tid dx E11.9 on insulin, [facility] #54658, Supply, 182, cm, 10/01/21 10:14:00 EST, Height/Length Dosing, 131.2, kg, 10/01/21 10:14:00 EST, Weight DosingStart: 06-78-7025Kyqdzfblzb test strips, See Instructions, 100 strip(s), 11, Test TID DX E11.40 on insulin, [facility]#[id number], Supply, 182, cm, 09/13/22 13:17:00 EST, Height/Length Dosing, 140.8, kg, 09/13/22 13:17:00 EST, Weight DosingStart: 98-23-4254Otocabm [place] 31g x 8 mm, See Instructions, 450 EA, 4, Use up to 4 daily, [facility] #[id number], Supply, 182, cm, 09/13/22 13:17:00 EST, Height/Length Dosing, 140.8, kg, 09/13/22 13:17:00 EST, WeightDosingStart: 60-42-0229tvfphmj, See Instructions, 100 EA, 11, test blood sugar tid dx E11.9 on insulin, [facility] #78108, Supply, 182, cm, 10/01/21 10:14:00 EST, Height/Length Dosing, 131.2, kg, 10/01/21 10:14:00 EST, Weight DosingStart: 99-42-9779Hubahqmmez test strips, See Instructions, 100 strip(s), 11, Test TID DX E11.40 on insulin, [facility]#[id number], Supply, 182, cm, 09/13/22 13:17:00 EST, Height/Length Dosing, 140.8, kg, 09/13/22 13:17:00 EST, Weight DosingStart: 18-53-0779Mnlfwyu [place] 31g x 8 mm, See Instructions, 450 EA, 4, Use up to 4 daily, [facility] #[id number], Supply, 182, cm, 09/13/22 13:17:00 EST, Height/Length Dosing, 140.8, kg, 09/13/22 13:17:00 EST, WeightDosingStart: 76-19-8827bweiprb, See Instructions, 100 EA, 11, test blood sugar tid dx E11.9 on insulin, [facility] #73318, Supply, 182, cm, 10/01/21 10:14:00 EST, Height/Length Dosing, 131.2, kg, 10/01/21 10:14:00 EST, Weight DosingStart: 14-31-9813Rchphdyauu test strips, See Instructions, 100 strip(s), 11, Test TID DX E11.40 on insulin, [facility]#58131, Supply, 182, cm, 09/13/22 13:17:00 EST, Height/Length Dosing, 140.8, kg, 09/13/22 13:17:00 EST, Weight DosingStart: 32-28-0204Ztggbor [place] 31g x 8 mm, See Instructions, 450 EA, 4, Use up to 4 daily, [facility] #40227, Supply, 182, cm, 09/13/22 13:17:00 EST, Height/Length Dosing, 140.8, kg, 09/13/22 13:17:00 EST, WeightDosingStart: 62-45-7006gqdeexg, See Instructions, 100 EA, 11, test blood sugar tid dx E11.9 on insulin, [facility] #[id number], Supply, 182, cm, 09/13/22 13:17:00 EST, Height/Length Dosing, 140.8, kg, 09/13/22 13:17:00 EST, Weight DosingStart: 74-43-2500Zeqgsbedno test strips, See Instructions, 100 strip(s), 11, Test TID DX E11.40 on insulin, [facility]#77576, Supply, 182, cm, 09/13/22 13:17:00 EST, Height/Length Dosing, 140.8, kg, 09/13/22 13:17:00 EST, Weight DosingStart: 87-74-2470Eqybsms [place] 31g x 8 mm, See Instructions, 450 EA, 4, Use up to 4 daily, [facility] #30655, Supply, 182, cm, 09/13/22 13:17:00 EST, Height/Length Dosing, 140.8, kg, 09/13/22 13:17:00 EST, WeightDosingStart: 18-66-2830fefwxxe, See Instructions, 100 EA, 11, test blood sugar tid dx E11.9 on insulin, [facility] #[id number], Supply, 182, cm, 09/13/22 13:17:00 EST, Height/Length Dosing, 140.8, kg, 09/13/22 13:17:00 EST, Weight DosingStart: 57-04-9163Wqfxivesag test strips, See Instructions, 100 strip(s), 11, Test TID DX E11.40 on insulin, [facility]#[id number], Supply, 182, cm, 09/13/22 13:17:00 EST, Height/Length Dosing, 140.8, kg, 09/13/22 13:17:00 EST, Weight DosingStart: 44-90-0037Cmadgtt [place] 31g x 8 mm, See Instructions, 450 EA, 4, Use up to 4 daily, [facility] #32766, Supply, 182, cm, 09/13/22 13:17:00 EST, Height/Length Dosing, 140.8, kg, 09/13/22 13:17:00 EST, Weight DosingStart: 36-49-6983pctvwtn, See Instructions, 100 EA, 11, test blood sugar tid dx E11.9 on insulin, [facility] #44014, Supply, 182, cm, 09/13/22 13:17:00 EST, Height/Length Dosing, 140.8, kg, 09/13/22 13:17:00 EST, Weight DosingStart: 55-02-8248Qlufqsrckc test strips, See Instructions, 100 strip(s), 11, Test TID DX E11.40 on insulin, [facility]#23208, Supply, 182, cm, 09/13/22 13:17:00 EST, Height/Length Dosing, 140.8, kg, 09/13/22 13:17:00 EST, Weight DosingStart: 72-12-9969Uvttksd [place] 31g x 8 mm, See Instructions, 450 EA, 4, Use up to 4 daily, [facility] #98641, Supply, 182, cm, 09/13/22 13:17:00 EST, Height/Length Dosing, 140.8, kg, 09/13/22 13:17:00 EST, WeightDosingStart: 51-93-7960gbmhrfq, See Instructions, 100 EA, 11, test blood sugar tid dx E11.9 on insulin, [facility] #22859, Supply, 182, cm, 09/13/22 13:17:00 EST, Height/Length Dosing, 140.8, kg, 09/13/22 13:17:00 EST, Weight DosingStart: 45-62-3393Gcuifngorc test strips, See Instructions, 100 strip(s), 11, Test TID DX E11.40 on insulin, [facility]#22235, Supply, 182, cm, 09/13/22 13:17:00 EST, Height/Length Dosing, 140.8, kg, 09/13/22 13:17:00 EST, Weight DosingStart: 60-83-1715Agngbnv [place] 31g x 8 mm, See Instructions, 450 EA, 4, Use up to 4 daily, [facility] #49422, Supply, 182, cm, 09/13/22 13:17:00 EST, Height/Length Dosing, 140.8, kg, 09/13/22 13:17:00 EST, WeightDosingStart: 69-36-1775loitzcq, See Instructions, 100 EA, 11, test blood sugar tid dx E11.9 on insulin, [facility] #96907, Supply, 182, cm, 09/13/22 13:17:00 EST, Height/Length Dosing, 140.8, kg, 09/13/22 13:17:00 EST, Weight DosingStart: 31-06-0039Qbvwikqvlo test strips, See Instructions, 100 strip(s), 11, Test TID DX E11.40 on insulin, [facility]#53334, Supply, 182, cm, 09/13/22 13:17:00 EST, Height/Length Dosing, 140.8, kg, 09/13/22 13:17:00 EST, Weight DosingStart: 90-00-1383Dzljnte [place] 31g x 8 mm, See Instructions, 450 EA, 4, Use up to 4 daily, [facility] #[id number], Supply, 182, cm, 09/13/22 13:17:00 EST, Height/Length Dosing, 140.8, kg, 09/13/22 13:17:00 EST, Weight DosingStart: 21-12-6810lakcyds, See Instructions, 100 EA, 11, test blood sugar tid dx E11.9 on insulin, [facility] #[id number], Supply, 182, cm, 09/13/22 13:17:00 EST, Height/Length Dosing, 140.8, kg, 09/13/22 13:17:00 EST, Weight DosingStart: 51-01-0138Ijuwqefxzh test strips, See Instructions, 100 strip(s), 11, Test TID DX E11.40 on insulin, [facility]#[id number], Supply, 182, cm, 09/13/22 13:17:00 EST, Height/Length Dosing, 140.8, kg, 09/13/22 13:17:00 EST, Weight DosingStart: 89-28-3794Pltwbkl [place] 31g x 8 mm, See Instructions, 450 EA, 4, Use up to 4 daily, [facility] #[id number], Supply, 182, cm, 09/13/22 13:17:00 EST, Height/Length Dosing, 140.8, kg, 09/13/22 13:17:00 EST, WeightDosingStart: 92-57-8918oisztks, See Instructions, 100 EA, 11, test blood sugar tid dx E11.9 on insulin, [facility] #[id number], Supply, 182, cm, 09/13/22 13:17:00 EST, Height/Length Dosing, 140.8, kg, 09/13/22 13:17:00 EST, Weight DosingStart: 08-97-8599Dvjtthrtih test strips, See Instructions, 100 strip(s), 11, Test TID DX E11.40 on insulin, [facility]#[id number], Supply, 182, cm, 09/13/22 13:17:00 EST, Height/Length Dosing, 140.8, kg, 09/13/22 13:17:00 EST, Weight DosingStart: 98-33-7249Kpbdtia [place] 31g x 8 mm, See Instructions, 450 EA, 4, Use up to 4 daily, [facility] #[id number], Supply, 182, cm, 09/13/22 13:17:00 EST, Height/Length Dosing, 140.8, kg, 09/13/22 13:17:00 EST, WeightDosingStart: 95-20-1062tbsjfgw, See Instructions, 100 EA, 11, test blood sugar tid dx E11.9 on insulin, [facility] #[id number], Supply, 182, cm, 09/13/22 13:17:00 EST, Height/Length Dosing, 140.8, kg, 09/13/22 13:17:00 EST, Weight DosingStart: 00-15-7840Wtdjupcfxy test strips, See Instructions, 100 strip(s), 11, Test TID DX E11.40 on insulin, [facility]#[id number], Supply, 182, cm, 09/13/22 13:17:00 EST, Height/Length Dosing, 140.8, kg, 09/13/22 13:17:00 EST, Weight DosingStart: 46-74-2259Bzkpptf [place] 31g x 8 mm, See Instructions, 450 EA, 4, Use up to 4 daily, [facility] #[id number], Supply, 182, cm, 09/13/22 13:17:00 EST, Height/Length Dosing, 140.8, kg, 09/13/22 13:17:00 EST, Weight DosingStart: 95-75-2820kuogiez, See Instructions, 100 EA, 11, test blood sugar tid dx E11.9 on insulin, [facility] #[id number], Supply, 182, cm, 09/13/22 13:17:00 EST, Height/Length Dosing, 140.8, kg, 09/13/22 13:17:00 EST, Weight DosingStart: 47-48-7322Fvccdcfcse test strips, See Instructions, 100 strip(s), 11, Test TID DX E11.40 on insulin, [facility]#[id number], Supply, 182, cm, 09/13/22 13:17:00 EST, Height/Length Dosing, 140.8, kg, 09/13/22 13:17:00 EST, Weight DosingStart: 66-33-5096Fwghikb [place] 31g x 8 mm, See Instructions, 450 EA, 4, Use up to 4 daily, [facility] #[id number], Supply, 182, cm, 05/22/23 13:30:00 EDT, Height/Length Dosing, 139.6, kg, 05/22/23 13:30:00 EDT, WeightDosingStart: 91-09-3251mviqlhl, See Instructions, 100 EA, 11, test blood sugar tid dx E11.9 on insulin, [facility] #[id number], Supply, 182, cm, 09/13/22 13:17:00 EST, Height/Length Dosing, 140.8, kg, 09/13/22 13:17:00 EST, Weight DosingStart: 59-57-1090Bszwlclkgj test strips, See Instructions, 100 strip(s), 11, Test TID DX E11.40 on insulin, [facility]#[id number], Supply, 182, cm, 09/13/22 13:17:00 EST, Height/Length Dosing, 140.8, kg, 09/13/22 13:17:00 EST, Weight DosingStart: 72-80-3853Jevdzqu [place] 31g x 8 mm, See Instructions, 450 EA, 4, Use up to 4 daily, [facility] #[id number], Supply, 182, cm, 05/22/23 13:30:00 EDT, Height/Length Dosing, 139.6, kg, 05/22/23 13:30:00 EDT, WeightDosingStart: 37-25-6588yvpysoj, See Instructions, 100 EA, 11, test blood sugar tid dx E11.9 on insulin, [facility] #[id number], Supply, 182, cm, 09/13/22 13:17:00 EST, Height/Length Dosing, 140.8, kg, 09/13/22 13:17:00 EST, Weight DosingStart: 20-21-2103Yxssvnlwxc test strips, See Instructions, 100 strip(s), 11, Test TID DX E11.40 on insulin, [facility]#[id number], Supply, 182, cm, 09/13/22 13:17:00 EST, Height/Length Dosing, 140.8, kg, 09/13/22 13:17:00 EST, Weight DosingStart: 85-31-7225Pmewxan [place] 31g x 8 mm, See Instructions, 450 EA, 4, Use up to 4 daily, [facility] #[id number], Supply, 182, cm, 05/22/23 13:30:00 EDT, Height/Length Dosing, 139.6, kg, 05/22/23 13:30:00 EDT, Weight DosingStart: 13-19-5365ovvabol, See Instructions, 100 EA, 11, test blood sugar tid dx E11.9 on insulin, [facility] #[id number], Supply, 182, cm, 09/13/22 13:17:00 EST, Height/Length Dosing, 140.8, kg, 09/13/22 13:17:00 EST, Weight DosingStart: 34-65-5992Eujfkjxxal test strips, See Instructions, 100 strip(s), 11, Test TID DX E11.40 on insulin, [facility]#[id number], Supply, 182, cm, 09/13/22 13:17:00 EST, Height/Length Dosing, 140.8, kg, 09/13/22 13:17:00 EST, Weight DosingStart: 28-38-2746Fmedsjj [place] 31g x 8 mm, See Instructions, 450 EA, 4, Use up to 4 daily, [facility] #[id number], Supply, 182, cm, 05/22/23 13:30:00 EDT, Height/Length Dosing, 139.6, kg, 05/22/23 13:30:00 EDT, WeightDosingStart: 24-05-1472swfmrhu, See Instructions, 100 EA, 11, test blood sugar tid dx E11.9 on insulin, [facility] #[id number], Supply, 182, cm, 09/13/22 13:17:00 EST, Height/Length Dosing, 140.8, kg, 09/13/22 13:17:00 EST, Weight DosingStart: 57-66-4031Plaaglhhej test strips, See Instructions, 100 strip(s), 11, Test TID DX E11.40 on insulin, [facility]#[id number], Supply, 182, cm, 09/13/22 13:17:00 EST, Height/Length Dosing, 140.8, kg, 09/13/22 13:17:00 EST, Weight DosingStart: 29-44-5711Mqujxbq [place] 31g x 8 mm, See Instructions, 450 EA, 4, Use up to 4 daily, [facility] #[id number], Supply, 182, cm, 05/22/23 13:30:00 EDT, Height/Length Dosing, 139.6, kg, 05/22/23 13:30:00 EDT, WeightDosingStart: 08-93-8450bihqcws, See Instructions, 100 EA, 11, test blood sugar tid dx E11.9 on insulin, [facility] #[id number], Supply, 182, cm, 09/13/22 13:17:00 EST, Height/Length Dosing, 140.8, kg, 09/13/22 13:17:00 EST, Weight DosingStart: 19-58-1523Gdjwnwuzpq test strips, See Instructions, 100 strip(s), 11, Test TID DX E11.40 on insulin, [facility]#[id number], Supply, 182, cm, 09/13/22 13:17:00 EST, Height/Length Dosing, 140.8, kg, 09/13/22 13:17:00 EST, Weight DosingStart: 49-99-3304Dvhpoal [place] 31g x 8 mm, See Instructions, 450 EA, 4, Use up to 4 daily, [facility] #[id number], Supply, 182, cm, 05/22/23 13:30:00 EDT, Height/Length Dosing, 139.6, kg, 05/22/23 13:30:00 EDT, Weight DosingStart: 43-85-4383trzybwt, See Instructions, 100 EA, 11, test blood sugar tid dx E11.9 on insulin, [facility] #[id number], Supply, 182, cm, 09/13/22 13:17:00 EST, Height/Length Dosing, 140.8, kg, 09/13/22 13:17:00 EST, Weight DosingStart: 59-68-2143Nfonsvifxa test strips, See Instructions, 100 strip(s), 11, Test TID DX E11.40 on insulin, [facility]#[id number], Supply, 182, cm, 09/13/22 13:17:00 EST, Height/Length Dosing, 140.8, kg, 09/13/22 13:17:00 EST, Weight DosingStart: 74-74-7832Jgcwznm [place] 31g x 8 mm, See Instructions, 450 EA, 4, Use up to 4 daily, [facility] #[id number], Supply, 182, cm, 05/22/23 13:30:00 EDT, Height/Length Dosing, 139.6, kg, 05/22/23 13:30:00 EDT, WeightDosingStart: 87-31-8508hmozfti, See Instructions, 100 EA, 11, test blood sugar tid dx E11.9 on insulin, [facility] #[id number], Supply, 182, cm, 09/13/22 13:17:00 EST, Height/Length Dosing, 140.8, kg, 09/13/22 13:17:00 EST, Weight DosingStart: 97-11-2225Prgfztvgnk test strips, See Instructions, 100 strip(s), 11, Test TID DX E11.40 on insulin, [facility]#[id number], Supply, 182, cm, 09/13/22 13:17:00 EST, Height/Length Dosing, 140.8, kg, 09/13/22 13:17:00 EST, Weight DosingStart: 82-94-9192Ydpvhjb [place] 31g x 8 mm, See Instructions, 450 EA, 4, Use up to 4 daily, [facility] #[id number], Supply, 182, cm, 05/22/23 13:30:00 EDT, Height/Length Dosing, 139.6, kg, 05/22/23 13:30:00 EDT, WeightDosingStart: 25-01-5914fmcycri, See Instructions, 100 EA, 11, test blood sugar tid dx E11.9 on insulin, [facility] #[id number], Supply, 182, cm, 09/13/22 13:17:00 EST, Height/Length Dosing, 140.8, kg, 09/13/22 13:17:00 EST, Weight DosingStart: 16-57-2634Elkknprqrs test strips, See Instructions, 100 strip(s), 11, Test TID DX E11.40 on insulin, [facility]#[id number], Supply, 182, cm, 09/13/22 13:17:00 EST, Height/Length Dosing, 140.8, kg, 09/13/22 13:17:00 EST, Weight DosingStart: 07-64-7059Jjclfpk [place] 31g x 8 mm, See Instructions, 450 EA, 4, Use up to 4 daily, [facility] #[id number], Supply, 182, cm, 05/22/23 13:30:00 EDT, Height/Length Dosing, 139.6, kg, 05/22/23 13:30:00 EDT, Weight DosingStart: 47-71-6725nvgkrpi, See Instructions, 100 EA, 11, test blood sugar tid dx E11.9 on insulin, [facility] #[id number], Supply, 182, cm, 09/13/22 13:17:00 EST, Height/Length Dosing, 140.8, kg, 09/13/22 13:17:00 EST, Weight DosingStart: 75-73-4101Bahqtkrvsb test strips, See Instructions, 100 strip(s), 11, Test TID DX E11.40 on insulin, [facility]#[id number], Supply, 182, cm, 09/13/22 13:17:00 EST, Height/Length Dosing, 140.8, kg, 09/13/22 13:17:00 EST, Weight DosingStart: 38-68-6906Emxlwfn [place] 31g x 8 mm, See Instructions, 450 EA, 4, Use up to 4 daily, [facility] #[id number], Supply, 182, cm, 05/22/23 13:30:00 EDT, Height/Length Dosing, 139.6, kg, 05/22/23 13:30:00 EDT, WeightDosingStart: 42-85-4237mnfsndp, See Instructions, 100 EA, 11, test blood sugar tid dx E11.9 on insulin, [facility] #[id number], Supply, 182, cm, 09/13/22 13:17:00 EST, Height/Length Dosing, 140.8, kg, 09/13/22 13:17:00 EST, Weight DosingStart: 44-60-1470Elhlqwjznk test strips, See Instructions, 100 strip(s), 11, Test TID DX E11.40 on insulin, [facility]#[id number], Supply, 182, cm, 09/13/22 13:17:00 EST, Height/Length Dosing, 140.8, kg, 09/13/22 13:17:00 EST, Weight DosingStart: 16-91-3673Tujuuoo [place] 31g x 8 mm, See Instructions, 450 EA, 4, Use up to 4 daily, [facility] #[id number], Supply, 182, cm, 05/22/23 13:30:00 EDT, Height/Length Dosing, 139.6, kg, 05/22/23 13:30:00 EDT, WeightDosingStart: 05-76-9078bhjbzsx, See Instructions, 100 EA, 11, test blood sugar tid dx E11.9 on insulin, [facility] #[id number], Supply, 182, cm, 09/13/22 13:17:00 EST, Height/Length Dosing, 140.8, kg, 09/13/22 13:17:00 EST, Weight DosingStart: 90-04-0696Vuxvqouilv test strips, See Instructions, 100 strip(s), 11, Test TID DX E11.40 on insulin, [facility]#[id number], Supply, 182, cm, 09/13/22 13:17:00 EST, Height/Length Dosing, 140.8, kg, 09/13/22 13:17:00 EST, Weight DosingStart: 34-65-4103Qmsvlol [place] 31g x 8 mm, See Instructions, 450 EA, 4, Use up to 4 daily, [facility] #[id number], Supply, 182, cm, 05/22/23 13:30:00 EDT, Height/Length Dosing, 139.6, kg, 05/22/23 13:30:00 EDT, Weight DosingStart: 13-59-6949qbmlhmk, See Instructions, 100 EA, 11, test blood sugar tid dx E11.9 on insulin, [facility] #[id number], Supply, 182, cm, 09/13/22 13:17:00 EST, Height/Length Dosing, 140.8, kg, 09/13/22 13:17:00 EST, Weight DosingStart: 03-82-9189Bavokwzwjs test strips, See Instructions, 100 strip(s), 11, Test TID DX E11.40 on insulin, [facility]#[id number], Supply, 182, cm, 09/13/22 13:17:00 EST, Height/Length Dosing, 140.8, kg, 09/13/22 13:17:00 EST, Weight DosingStart: 04-59-6459Eqrjmcy [place] 31g x 8 mm, See Instructions, 450 EA, 4, Use up to 4 daily, [facility] #[id number], Supply, 182, cm, 05/22/23 13:30:00 EDT, Height/Length Dosing, 139.6, kg, 05/22/23 13:30:00 EDT, WeightDosingStart: 81-19-3331rqynrnh, See Instructions, 100 EA, 11, test blood sugar tid dx E11.9 on insulin, [facility] #[id number], Supply, 182, cm, 09/13/22 13:17:00 EST, Height/Length Dosing, 140.8, kg, 09/13/22 13:17:00 EST, Weight DosingStart: 62-62-2070Jxiasbypfo test strips, See Instructions, 100 strip(s), 11, Test TID DX E11.40 on insulin, [facility]#[id number], Supply, 182, cm, 09/13/22 13:17:00 EST, Height/Length Dosing, 140.8, kg, 09/13/22 13:17:00 EST, Weight DosingStart: 58-01-7222Hhnosom [place] 31g x 8 mm, See Instructions, 450 EA, 4, Use up to 4 daily, [facility] #[id number], Supply, 182, cm, 05/22/23 13:30:00 EDT, Height/Length Dosing, 139.6, kg, 05/22/23 13:30:00 EDT, WeightDosingStart: 90-05-3588hzmyomh, See Instructions, 100 EA, 11, test blood sugar tid dx E11.9 on insulin, [facility] #[id number], Supply, 182, cm, 09/13/22 13:17:00 EST, Height/Length Dosing, 140.8, kg, 09/13/22 13:17:00 EST, Weight DosingStart: 74-58-6809Otitiwvfov test strips, See Instructions, 100 strip(s), 11, Test TID DX E11.40 on insulin, [facility]#[id number], Supply, 182, cm, 09/13/22 13:17:00 EST, Height/Length Dosing, 140.8, kg, 09/13/22 13:17:00 EST, Weight DosingStart: 29-78-1329Oskketh [place] 31g x 8 mm, See Instructions, 450 EA, 4, Use up to 4 daily, [facility] #[id number], Supply, 182, cm, 05/22/23 13:30:00 EDT, Height/Length Dosing, 139.6, kg, 05/22/23 13:30:00 EDT, Weight DosingStart: 03-38-0701euabvjq, See Instructions, 100 EA, 11, test blood sugar tid dx E11.9 on insulin, [facility] #[id number], Supply, 182, cm, 09/13/22 13:17:00 EST, Height/Length Dosing, 140.8, kg, 09/13/22 13:17:00 EST, Weight DosingStart: 77-83-8312Cugnkjoixy test strips, See Instructions, 100 strip(s), 11, Test TID DX E11.40 on insulin, [facility]#[id number], Supply, 180, cm, 09/12/23 13:35:00 EST, Height/Length Dosing, 149.8, kg, 09/12/23 13:35:00 EST, Weight DosingStart: 90-47-7289Dhobgme [place] 31g x 8 mm, See Instructions, 450 EA, 4, Use up to 4 daily, [facility] #95081, Supply, 180, cm, 09/12/23 13:35:00 EST, Height/Length Dosing, 149.8, kg, 09/12/23 13:35:00 EST, WeightDosingStart: 42-22-8582qfmrnup, See Instructions, 100 EA, 11, test blood sugar tid dx E11.9 on insulin, [facility] #[id number], Supply, 180, cm, 09/12/23 13:35:00 EST, Height/Length Dosing, 149.8, kg, 09/12/23 13:35:00 EST, Weight DosingStart: 29-27-2934Fsvixdwjaw test strips, See Instructions, 100 strip(s), 11, Test TID DX E11.40 on insulin, [facility]#[id number], Supply, 180, cm, 09/12/23 13:35:00 EST, Height/Length Dosing, 149.8, kg, 09/12/23 13:35:00 EST, Weight DosingStart: 65-28-6752Worbxga [place] 31g x 8 mm, See Instructions, 450 EA, 4, Use up to 4 daily, [facility] #62396, Supply, 180, cm, 09/12/23 13:35:00 EST, Height/Length Dosing, 149.8, kg, 09/12/23 13:35:00 EST, WeightDosingStart: 34-83-7184hqnaptv, See Instructions, 100 EA, 11, test blood sugar tid dx E11.9 on insulin, [facility] #[id number], Supply, 180, cm, 09/12/23 13:35:00 EST, Height/Length Dosing, 149.8, kg, 09/12/23 13:35:00 EST, Weight DosingStart: 22-86-5934Grwdyrndwr test strips, See Instructions, 100 strip(s), 11, Test TID DX E11.40 on insulin, [facility]#[id number], Supply, 180, cm, 09/12/23 13:35:00 EST, Height/Length Dosing, 149.8, kg, 09/12/23 13:35:00 EST, Weight DosingStart: 70-11-9080Xsihffk [place] 31g x 8 mm, See Instructions, 450 EA, 4, Use up to 4 daily, [facility] #76686, Supply, 180, cm, 09/12/23 13:35:00 EST, Height/Length Dosing, 149.8, kg, 09/12/23 13:35:00 EST, Weight DosingStart: 45-12-7806xewzldm, See Instructions, 100 EA, 11, test blood sugar tid dx E11.9 on insulin, [facility] #[id number], Supply, 180, cm, 09/12/23 13:35:00 EST, Height/Length Dosing, 149.8, kg, 09/12/23 13:35:00 EST, Weight DosingStart: 27-12-2518Vytnrzsegl test strips, See Instructions, 100 strip(s), 11, Test TID DX E11.40 on insulin, [facility]#[id number], Supply, 180, cm, 09/12/23 13:35:00 EST, Height/Length Dosing, 149.8, kg, 09/12/23 13:35:00 EST, Weight DosingStart: 46-09-8153Hnvfnth [place] 31g x 8 mm, See Instructions, 450 EA, 4, Use up to 4 daily, [facility] #[id number], Supply, 180, cm, 09/12/23 13:35:00 EST, Height/Length Dosing, 149.8, kg, 09/12/23 13:35:00 EST, WeightDosingStart: 84-16-4758rzyprph, See Instructions, 100 EA, 11, test blood sugar tid dx E11.9 on insulin, [facility] #[id number], Supply, 180, cm, 09/12/23 13:35:00 EST, Height/Length Dosing, 149.8, kg, 09/12/23 13:35:00 EST, Weight DosingStart: 73-84-2033Osbcqfrmue test strips, See Instructions, 100 strip(s), 11, Test TID DX E11.40 on insulin, [facility]#[id number], Supply, 180, cm, 09/12/23 13:35:00 EST, Height/Length Dosing, 149.8, kg, 09/12/23 13:35:00 EST, Weight DosingStart: 03-78-0597Tusuvky [place] 31g x 8 mm, See Instructions, 450 EA, 4, Use up to 4 daily, [facility] #07258, Supply, 180, cm, 09/12/23 13:35:00 EST, Height/Length Dosing, 149.8, kg, 09/12/23 13:35:00 EST, WeightDosingStart: 32-25-4613pwozsgg, See Instructions, 100 EA, 11, test blood sugar tid dx E11.9 on insulin, [facility] #[id number], Supply, 180, cm, 09/12/23 13:35:00 EST, Height/Length Dosing, 149.8, kg, 09/12/23 13:35:00 EST, Weight DosingStart: 08-85-2220Jgqcpwsmdg test strips, See Instructions, 100 strip(s), 11, Test TID DX E11.40 on insulin, [facility]#[id number], Supply, 180, cm, 09/12/23 13:35:00 EST, Height/Length Dosing, 149.8, kg, 09/12/23 13:35:00 EST, Weight DosingStart: 53-38-8532Ghoneam [place] 31g x 8 mm, See Instructions, 450 EA, 4, Use up to 4 daily, [facility] #[id number], Supply, 180, cm, 09/12/23 13:35:00 EST, Height/Length Dosing, 149.8, kg, 09/12/23 13:35:00 EST, Weight DosingStart: 96-91-3519jlntfok, See Instructions, 100 EA, 11, test blood sugar tid dx E11.9 on insulin, [facility] #[id number], Supply, 180, cm, 09/12/23 13:35:00 EST, Height/Length Dosing, 149.8, kg, 09/12/23 13:35:00 EST, Weight DosingStart: 39-78-7324Rwrezavini test strips, See Instructions, 100 strip(s), 11, Test TID DX E11.40 on insulin, [facility]#[id number], Supply, 180, cm, 09/12/23 13:35:00 EST, Height/Length Dosing, 149.8, kg, 09/12/23 13:35:00 EST, Weight DosingStart: 84-83-4529Gwfjhvc [place] 31g x 8 mm, See Instructions, 450 EA, 4, Use up to 4 daily, [facility] #[id number], Supply, 180, cm, 09/12/23 13:35:00 EST, Height/Length Dosing, 149.8, kg, 09/12/23 13:35:00 EST, WeightDosingStart: 19-62-2453vsrbxyq, See Instructions, 100 EA, 11, test blood sugar tid dx E11.9 on insulin, [facility] #69612, Supply, 180, cm, 09/12/23 13:35:00 EST, Height/Length Dosing, 149.8, kg, 09/12/23 13:35:00 EST, Weight DosingStart: 36-16-1580Infildagik test strips, See Instructions, 100 strip(s), 11, Test TID DX E11.40 on insulin, [facility]#76046, Supply, 180, cm, 09/12/23 13:35:00 EST, Height/Length Dosing, 149.8, kg, 09/12/23 13:35:00 EST, Weight DosingStart: 41-12-4333Jpizcvq [place] 31g x 8 mm, See Instructions, 450 EA, 4, Use up to 4 daily, [facility] #[id number], Supply, 180, cm, 09/12/23 13:35:00 EST, Height/Length Dosing, 149.8, kg, 09/12/23 13:35:00 EST, WeightDosingStart: 93-97-5108rrzgmxk, See Instructions, 100 EA, 11, test blood sugar tid dx E11.9 on insulin, [facility] #[id number], Supply, 180, cm, 09/12/23 13:35:00 EST, Height/Length Dosing, 149.8, kg, 09/12/23 13:35:00 EST, Weight DosingStart: 90-01-3548Kqndoosmhv test strips, See Instructions, 100 strip(s), 11, Test TID DX E11.40 on insulin, [facility]#[id number], Supply, 180, cm, 09/12/23 13:35:00 EST, Height/Length Dosing, 149.8, kg, 09/12/23 13:35:00 EST, Weight DosingStart: 81-95-7303Wztmelo [place] 31g x 8 mm, See Instructions, 450 EA, 4, Use up to 4 daily, [facility] #79701, Supply, 180, cm, 09/12/23 13:35:00 EST, Height/Length Dosing, 149.8, kg, 09/12/23 13:35:00 EST, Weight DosingStart: 19-68-8202bxrtcrm, See Instructions, 100 EA, 11, test blood sugar tid dx E11.9 on insulin, [facility] #84835, Supply, 180, cm, 09/12/23 13:35:00 EST, Height/Length Dosing, 149.8, kg, 09/12/23 13:35:00 EST, Weight DosingStart: 78-67-9954Egrqtrolcp test strips, See Instructions, 100 strip(s), 11, Test TID DX E11.40 on insulin, [facility]#84963, Supply, 180, cm, 09/12/23 13:35:00 EST, Height/Length Dosing, 149.8, kg, 09/12/23 13:35:00 EST, Weight DosingStart: 86-25-9418Jhmxrdl [place] 31g x 8 mm, See Instructions, 450 EA, 4, Use up to 4 daily, [facility] #67752, Supply, 180, cm, 09/12/23 13:35:00 EST, Height/Length Dosing, 149.8, kg, 09/12/23 13:35:00 EST, WeightDosingStart: 82-87-2464zfvpfpv, See Instructions, 100 EA, 11, test blood sugar tid dx E11.9 on insulin, [facility] #38548, Supply, 180, cm, 09/12/23 13:35:00 EST, Height/Length Dosing, 149.8, kg, 09/12/23 13:35:00 EST, Weight DosingStart: 05-73-6457Lakimnnpls test strips, See Instructions, 100 strip(s), 11, Test TID DX E11.40 on insulin, [facility]#[id number], Supply, 180, cm, 09/12/23 13:35:00 EST, Height/Length Dosing, 149.8, kg, 09/12/23 13:35:00 EST, Weight DosingStart: 57-76-8336Kctphqw [place] 31g x 8 mm, See Instructions, 450 EA, 4, Use up to 4 daily, [facility] #46113, Supply, 180, cm, 09/12/23 13:35:00 EST, Height/Length Dosing, 149.8, kg, 09/12/23 13:35:00 EST, WeightDosingStart: 50-68-0709dihcngg, See Instructions, 100 EA, 11, test blood sugar tid dx E11.9 on insulin, [facility] #45241, Supply, 180, cm, 09/12/23 13:35:00 EST, Height/Length Dosing, 149.8, kg, 09/12/23 13:35:00 EST, Weight DosingStart: 07-04-8639Njhbrrwxqk test strips, See Instructions, 100 strip(s), 11, Test TID DX E11.40 on insulin, [facility]#02187, Supply, 180, cm, 09/12/23 13:35:00 EST, Height/Length Dosing, 149.8, kg, 09/12/23 13:35:00 EST, Weight DosingStart: 85-73-5550Rjelzye [place] 31g x 8 mm, See Instructions, 450 EA, 4, Use up to 4 daily, [facility] #79153, Supply, 180, cm, 09/12/23 13:35:00 EST, Height/Length Dosing, 149.8, kg, 09/12/23 13:35:00 EST, Weight DosingStart: 68-51-4326pkamgvt, See Instructions, 100 EA, 11, test blood sugar tid dx E11.9 on insulin, [facility] #01971, Supply, 180, cm, 09/12/23 13:35:00 EST, Height/Length Dosing, 149.8, kg, 09/12/23 13:35:00 EST, Weight DosingStart: 92-02-0199Lyuyyeijhn test strips, See Instructions, 100 strip(s), 11, Test TID DX E11.40 on insulin, [facility]#90395, Supply, 180, cm, 09/12/23 13:35:00 EST, Height/Length Dosing, 149.8, kg, 09/12/23 13:35:00 EST, Weight DosingStart: 02-17-0626Rhfcyhu [place] 31g x 8 mm, See Instructions, 450 EA, 4, Use up to 4 daily, [facility] #92682, Supply, 180, cm, 09/12/23 13:35:00 EST, Height/Length Dosing, 149.8, kg, 09/12/23 13:35:00 EST, WeightDosingStart: 14-54-1285bwxkqsc, See Instructions, 100 EA, 11, test blood sugar tid dx E11.9 on insulin, [facility] #55292, Supply, 180, cm, 09/12/23 13:35:00 EST, Height/Length Dosing, 149.8, kg, 09/12/23 13:35:00 EST, Weight DosingStart: 21-45-6685Ehoejhtzle test strips, See Instructions, 100 strip(s), 11, Test TID DX E11.40 on insulin, [facility]#[id number], Supply, 180, cm, 09/12/23 13:35:00 EST, Height/Length Dosing, 149.8, kg, 09/12/23 13:35:00 EST, Weight DosingStart: 92-93-6913Imuvyph [place] 31g x 8 mm, See Instructions, 450 EA, 4, Use up to 4 daily, [facility] #36327, Supply, 180, cm, 09/12/23 13:35:00 EST, Height/Length Dosing, 149.8, kg, 09/12/23 13:35:00 EST, WeightDosingStart: 10-54-7867lhyxhrx, See Instructions, 100 EA, 11, test blood sugar tid dx E11.9 on insulin, [facility] #[id number], Supply, 180, cm, 09/12/23 13:35:00 EST, Height/Length Dosing, 149.8, kg, 09/12/23 13:35:00 EST, Weight DosingStart: 74-49-3167Anhcpoqbam test strips, See Instructions, 100 strip(s), 11, Test TID DX E11.40 on insulin, [facility]#76041, Supply, 180, cm, 09/12/23 13:35:00 EST, Height/Length Dosing, 149.8, kg, 09/12/23 13:35:00 EST, Weight DosingStart: 80-88-4516Bhfttxk [place] 31g x 8 mm, See Instructions, 450 EA, 4, Use up to 4 daily, [facility] #97397, Supply, 180, cm, 09/12/23 13:35:00 EST, Height/Length Dosing, 149.8, kg, 09/12/23 13:35:00 EST, Weight DosingStart: 18-84-2841qqrsuml, See Instructions, 100 EA, 11, test blood sugar tid dx E11.9 on insulin, [facility] #95057, Supply, 180, cm, 09/12/23 13:35:00 EST, Height/Length Dosing, 149.8, kg, 09/12/23 13:35:00 EST, Weight DosingStart: 92-53-7657Pjtvuizkwu test strips, See Instructions, 100 strip(s), 11, Test TID DX E11.40 on insulin, [facility]#[id number], Supply, 180, cm, 09/12/23 13:35:00 EST, Height/Length Dosing, 149.8, kg, 09/12/23 13:35:00 EST, Weight DosingStart: 34-12-8518Ccmbnqa [place] 31g x 8 mm, See Instructions, 450 EA, 4, Use up to 4 daily, [facility] #73634, Supply, 180, cm, 09/12/23 13:35:00 EST, Height/Length Dosing, 149.8, kg, 09/12/23 13:35:00 EST, WeightDosingStart: 61-87-4625cadxomi, See Instructions, 100 EA, 11, test blood sugar tid dx E11.9 on insulin, [facility] #98387, Supply, 180, cm, 09/12/23 13:35:00 EST, Height/Length Dosing, 149.8, kg, 09/12/23 13:35:00 EST, Weight DosingStart: 19-19-7800Zluozflvly test strips, See Instructions, 100 strip(s), 11, Test TID DX E11.40 on insulin, [facility]#[id number], Supply, 180, cm, 09/12/23 13:35:00 EST, Height/Length Dosing, 149.8, kg, 09/12/23 13:35:00 EST, Weight DosingStart: 30-46-2706Brigyzn [place] 31g x 8 mm, See Instructions, 450 EA, 4, Use up to 4 daily, [facility] #[id number], Supply, 180, cm, 09/12/23 13:35:00 EST, Height/Length Dosing, 149.8, kg, 09/12/23 13:35:00 EST, WeightDosingStart: 45-35-0679nxcnebb, See Instructions, 100 EA, 11, test blood sugar tid dx E11.9 on insulin, [facility] #[id number], Supply, 180, cm, 09/12/23 13:35:00 EST, Height/Length Dosing, 149.8, kg, 09/12/23 13:35:00 EST, Weight DosingStart: 60-71-9472Jiktmpbjhp test strips, See Instructions, 100 strip(s), 11, Test TID DX E11.40 on insulin, [facility]#[id number], Supply, 180, cm, 09/12/23 13:35:00 EST, Height/Length Dosing, 149.8, kg, 09/12/23 13:35:00 EST, Weight DosingStart: 22-74-3854Ioqaluf [place] 31g x 8 mm, See Instructions, 450 EA, 4, Use up to 4 daily, [facility] #[id number], Supply, 180, cm, 09/12/23 13:35:00 EST, Height/Length Dosing, 149.8, kg, 09/12/23 13:35:00 EST, Weight DosingStart: 82-62-2028nzndwrv, See Instructions, 100 EA, 11, test blood sugar tid dx E11.9 on insulin, [facility] #[id number], Supply, 180, cm, 09/12/23 13:35:00 EST, Height/Length Dosing, 149.8, kg, 09/12/23 13:35:00 EST, Weight DosingStart: 34-93-9173Uitoilfmwp test strips, See Instructions, 100 strip(s), 11, Test TID DX E11.40 on insulin, [facility]#[id number], Supply, 180, cm, 09/12/23 13:35:00 EST, Height/Length Dosing, 149.8, kg, 09/12/23 13:35:00 EST, Weight DosingStart: 48-25-2175Rhgugmd [place] 31g x 8 mm, See Instructions, 450 EA, 4, Use up to 4 daily, [facility] #[id number], Supply, 180, cm, 09/12/23 13:35:00 EST, Height/Length Dosing, 149.8, kg, 09/12/23 13:35:00 EST, WeightDosingStart: 94-88-0433ytiksnz, See Instructions, 100 EA, 11, test blood sugar tid dx E11.9 on insulin, [facility] #[id number], Supply, 180, cm, 09/12/23 13:35:00 EST, Height/Length Dosing, 149.8, kg, 09/12/23 13:35:00 EST, Weight DosingStart: 58-48-2585Xjiencfmjx test strips, See Instructions, 100 strip(s), 11, Test TID DX E11.40 on insulin, [facility]#[id number], Supply, 180, cm, 09/12/23 13:35:00 EST, Height/Length Dosing, 149.8, kg, 09/12/23 13:35:00 EST, Weight DosingStart: 23-21-4971Usbkoqp [place] 31g x 8 mm, See Instructions, 450 EA, 4, Use up to 4 daily, [facility] #[id number], Supply, 180, cm, 09/12/23 13:35:00 EST, Height/Length Dosing, 149.8, kg, 09/12/23 13:35:00 EST, WeightDosingStart: 33-07-6358wybfcsw, See Instructions, 100 EA, 11, test blood sugar tid dx E11.9 on insulin, [facility] #[id number], Supply, 180, cm, 09/12/23 13:35:00 EST, Height/Length Dosing, 149.8, kg, 09/12/23 13:35:00 EST, Weight DosingStart: 42-90-4522Tufsbckwzb test strips, See Instructions, 100 strip(s), 11, Test TID DX E11.40 on insulin, [facility]#[id number], Supply, 180, cm, 09/12/23 13:35:00 EST, Height/Length Dosing, 149.8, kg, 09/12/23 13:35:00 EST, Weight DosingStart: 69-08-0235Ngjptav [place] 31g x 8 mm, See Instructions, 450 EA, 4, Use up to 4 daily, [facility] #[id number], Supply, 180, cm, 09/12/23 13:35:00 EST, Height/Length Dosing, 149.8, kg, 09/12/23 13:35:00 EST, Weight DosingStart: 33-97-1124qafsawz, See Instructions, 100 EA, 11, test blood sugar tid dx E11.9 on insulin, [facility] #[id number], Supply, 180, cm, 09/12/23 13:35:00 EST, Height/Length Dosing, 149.8, kg, 09/12/23 13:35:00 EST, Weight DosingStart: 06-09-0272Lggelozijx test strips, See Instructions, 100 strip(s), 11, Test TID DX E11.40 on insulin, [facility]#[id number], Supply, 180, cm, 09/12/23 13:35:00 EST, Height/Length Dosing, 149.8, kg, 09/12/23 13:35:00 EST, Weight DosingStart: 70-80-3164Wconbjp [place] 31g x 8 mm, See Instructions, 450 EA, 4, Use up to 4 daily, [facility] #[id number], Supply, 180, cm, 09/12/23 13:35:00 EST, Height/Length Dosing, 149.8, kg, 09/12/23 13:35:00 EST, WeightDosingStart: 26-16-9296sdrpsdt, See Instructions, 100 EA, 11, test blood sugar tid dx E11.9 on insulin, [facility] #[id number], Supply, 180, cm, 09/12/23 13:35:00 EST, Height/Length Dosing, 149.8, kg, 09/12/23 13:35:00 EST, Weight DosingStart: 92-85-9518Kpujqyywms test strips, See Instructions, 100 strip(s), 11, Test TID DX E11.40 on insulin, [facility]#[id number], Supply, 180, cm, 09/12/23 13:35:00 EST, Height/Length Dosing, 149.8, kg, 09/12/23 13:35:00 EST, Weight DosingStart: 97-59-5601Onleyjr [place] 31g x 8 mm, See Instructions, 450 EA, 4, Use up to 4 daily, [facility] #[id number], Supply, 180, cm, 09/12/23 13:35:00 EST, Height/Length Dosing, 149.8, kg, 09/12/23 13:35:00 EST, WeightDosingStart: 29-47-1589mgcaezp, See Instructions, 100 EA, 11, test blood sugar tid dx E11.9 on insulin, [facility] #[id number], Supply, 180, cm, 09/12/23 13:35:00 EST, Height/Length Dosing, 149.8, kg, 09/12/23 13:35:00 EST, Weight DosingStart: 63-42-8547Ioaoqeqnzb test strips, See Instructions, 100 strip(s), 11, Test TID DX E11.40 on insulin, [facility]#[id number], Supply, 180, cm, 09/12/23 13:35:00 EST, Height/Length Dosing, 149.8, kg, 09/12/23 13:35:00 EST, Weight DosingStart: 93-46-1993Gzroubp [place] 31g x 8 mm, See Instructions, 450 EA, 4, Use up to 4 daily, [facility] #[id number], Supply, 180, cm, 09/12/23 13:35:00 EST, Height/Length Dosing, 149.8, kg, 09/12/23 13:35:00 EST, Weight DosingStart: 70-52-1712advsuox, See Instructions, 100 EA, 11, test blood sugar tid dx E11.9 on insulin, [facility] #[id number], Supply, 180, cm, 09/12/23 13:35:00 EST, Height/Length Dosing, 149.8, kg, 09/12/23 13:35:00 EST, Weight DosingStart: 31-28-2279Ijjdpohgrc test strips, See Instructions, 100 strip(s), 11, Test TID DX E11.40 on insulin, [facility]#[id number], Supply, 180, cm, 09/12/23 13:35:00 EST, Height/Length Dosing, 149.8, kg, 09/12/23 13:35:00 EST, Weight DosingStart: 42-03-1740Tghsvku [place] 31g x 8 mm, See Instructions, 450 EA, 4, Use up to 4 daily, [facility] #[id number], Supply, 180, cm, 09/12/23 13:35:00 EST, Height/Length Dosing, 149.8, kg, 09/12/23 13:35:00 EST, WeightDosingStart: 00-02-0759lppbbqk, See Instructions, 100 EA, 11, test blood sugar tid dx E11.9 on insulin, [facility] #[id number], Supply, 180, cm, 09/12/23 13:35:00 EST, Height/Length Dosing, 149.8, kg, 09/12/23 13:35:00 EST, Weight DosingStart: 78-19-1915Uvcxkoymik test strips, See Instructions, 100 strip(s), 11, Test TID DX E11.40 on insulin, [facility]#[id number], Supply, 180, cm, 09/12/23 13:35:00 EST, Height/Length Dosing, 149.8, kg, 09/12/23 13:35:00 EST, Weight DosingStart: 21-18-3202Xrkdwts [place] 31g x 8 mm, See Instructions, 450 EA, 4, Use up to 4 daily, [facility] #[id number], Supply, 180, cm, 09/12/23 13:35:00 EST, Height/Length Dosing, 149.8, kg, 09/12/23 13:35:00 EST, WeightDosingStart: 99-13-0723azzvhle, See Instructions, 100 EA, 11, test blood sugar tid dx E11.9 on insulin, [facility] #[id number], Supply, 180, cm, 09/12/23 13:35:00 EST, Height/Length Dosing, 149.8, kg, 09/12/23 13:35:00 EST, Weight DosingStart: 39-17-2229Gxsdotaixj test strips, See Instructions, 100 strip(s), 11, Test TID DX E11.40 on insulin, [facility]#[id number], Supply, 180, cm, 09/12/23 13:35:00 EST, Height/Length Dosing, 149.8, kg, 09/12/23 13:35:00 EST, Weight DosingStart: 56-92-9700Bldjbbo [place] 31g x 8 mm, See Instructions, 450 EA, 4, Use up to 4 daily, [facility] #[id number], Supply, 180, cm, 09/12/23 13:35:00 EST, Height/Length Dosing, 149.8, kg, 09/12/23 13:35:00 EST, Weight DosingStart: 95-85-5074gkxjksb, See Instructions, 100 EA, 11, test blood sugar tid dx E11.9 on insulin, [facility] #[id number], Supply, 180, cm, 09/12/23 13:35:00 EST, Height/Length Dosing, 149.8, kg, 09/12/23 13:35:00 EST, Weight DosingStart: 33-07-4806Fttqsnpyip test strips, See Instructions, 100 strip(s), 11, Test TID DX E11.40 on insulin, [facility]#[id number], Supply, 180, cm, 09/12/23 13:35:00 EST, Height/Length Dosing, 149.8, kg, 09/12/23 13:35:00 EST, Weight DosingStart: 88-50-2355Xctmidl [place] 31g x 8 mm, See Instructions, 450 EA, 4, Use up to 4 daily, [facility] #[id number], Supply, 180, cm, 09/12/23 13:35:00 EST, Height/Length Dosing, 149.8, kg, 09/12/23 13:35:00 EST, WeightDosingStart: 50-83-5528wbkfseo, See Instructions, 100 EA, 11, test blood sugar tid dx E11.9 on insulin, [facility] #[id number], Supply, 180, cm, 09/12/23 13:35:00 EST, Height/Length Dosing, 149.8, kg, 09/12/23 13:35:00 EST, Weight DosingStart: 40-67-3860Wzoozlrjzu test strips, See Instructions, 100 strip(s), 11, Test TID DX E11.40 on insulin, [facility]#[id number], Supply, 180, cm, 09/12/23 13:35:00 EST, Height/Length Dosing, 149.8, kg, 09/12/23 13:35:00 EST, Weight DosingStart: 73-13-9808Ikhktla [place] 31g x 8 mm, See Instructions, 450 EA, 4, Use up to 4 daily, [facility] #[id number], Supply, 180, cm, 09/12/23 13:35:00 EST, Height/Length Dosing, 149.8, kg, 09/12/23 13:35:00 EST, WeightDosingStart: 32-67-5785luqqzvz, See Instructions, 100 EA, 11, test blood sugar tid dx E11.9 on insulin, [facility] #[id number], Supply, 180, cm, 09/12/23 13:35:00 EST, Height/Length Dosing, 149.8, kg, 09/12/23 13:35:00 EST, Weight DosingStart: 17-19-8498Wjuquqfpvl test strips, See Instructions, 100 strip(s), 11, Test TID DX E11.40 on insulin, [facility]#[id number], Supply, 180, cm, 09/12/23 13:35:00 EST, Height/Length Dosing, 149.8, kg, 09/12/23 13:35:00 EST, Weight DosingStart: 10-80-6045Atvzekv [place] 31g x 8 mm, See Instructions, 450 EA, 4, Use up to 4 daily, [facility] #[id number], Supply, 180, cm, 09/12/23 13:35:00 EST, Height/Length Dosing, 149.8, kg, 09/12/23 13:35:00 EST, Weight DosingStart: 38-26-9398lygkaev, See Instructions, 100 EA, 11, test blood sugar tid dx E11.9 on insulin, [facility] #[id number], Supply, 180, cm, 09/12/23 13:35:00 EST, Height/Length Dosing, 149.8, kg, 09/12/23 13:35:00 EST, Weight DosingStart: 19-03-1042Ztwhknnfxe test strips, See Instructions, 100 strip(s), 11, Test TID DX E11.40 on insulin, [facility]#[id number], Supply, 180, cm, 09/12/23 13:35:00 EST, Height/Length Dosing, 149.8, kg, 09/12/23 13:35:00 EST, Weight DosingStart: 17-40-7334Oizplrp [place] 31g x 8 mm, See Instructions, 450 EA, 4, Use up to 4 daily, [facility] #[id number], Supply, 180, cm, 09/12/23 13:35:00 EST, Height/Length Dosing, 149.8, kg, 09/12/23 13:35:00 EST, WeightDosingStart: 49-06-9204bszaugg, See Instructions, 100 EA, 11, test blood sugar tid dx E11.9 on insulin, [facility] #[id number], Supply, 180, cm, 09/12/23 13:35:00 EST, Height/Length Dosing, 149.8, kg, 09/12/23 13:35:00 EST, Weight DosingStart: 43-81-082675956079Xzsja: 05-05-2024 End: 20-55-2430Grensnasde test strips, See Instructions, 100 strip(s), 11, Test TID DX E11.40 on insulin, [facility]#[id number], Supply, 180, cm, 09/12/23 13:35:00 EST, Height/Length Dosing, 149.8, kg, 09/12/23 13:35:00 EST, Weight DosingStart: 79-19-4615Bczarir [place] 31g x 8 mm, See Instructions, 450 EA, 4, Use up to 4 daily, [facility] #[id number], Supply, 180, cm, 09/12/23 13:35:00 EST, Height/Length Dosing, 149.8, kg, 09/12/23 13:35:00 EST, WeightDosingStart: 43-48-1833bcnkick, See Instructions, 100 EA, 11, test blood sugar tid dx E11.9 on insulin, [facility] #[id number], Supply, 180, cm, 09/12/23 13:35:00 EST, Height/Length Dosing, 149.8, kg, 09/12/23 13:35:00 EST, Weight DosingStart: 04-92-9382Mehpemipfw test strips, See Instructions, 100 strip(s), 11, Test TID DX E11.40 on insulin, [facility]#[id number], Supply, 180, cm, 09/12/23 13:35:00 EST, Height/Length Dosing, 149.8, kg, 09/12/23 13:35:00 EST, Weight DosingStart: 50-73-0546Ykdqovi [place] 31g x 8 mm, See Instructions, 450 EA, 4, Use up to 4 daily, [facility] #[id number], Supply, 180, cm, 09/12/23 13:35:00 EST, Height/Length Dosing, 149.8, kg, 09/12/23 13:35:00 EST, WeightDosingStart: 84-95-1644rwlkzcn, See Instructions, 100 EA, 11, test blood sugar tid dx E11.9 on insulin, [facility] #[id number], Supply, 180, cm, 09/12/23 13:35:00 EST, Height/Length Dosing, 149.8, kg, 09/12/23 13:35:00 EST, Weight DosingStart: 64-78-4022Irxcmyutqr test strips, See Instructions, 100 strip(s), 11, Test TID DX E11.40 on insulin, [facility]#72120, Supply, 180, cm, 09/12/23 13:35:00 EST, Height/Length Dosing, 149.8, kg, 09/12/23 13:35:00 EST, Weight DosingStart: 29-15-8640Yirzkjn [place] 31g x 8 mm, See Instructions, 450 EA, 4, Use up to 4 daily, [facility] #[id number], Supply, 180, cm, 09/12/23 13:35:00 EST, Height/Length Dosing, 149.8, kg, 09/12/23 13:35:00 EST, Weight DosingStart: 95-32-1660dotgsjq, See Instructions, 100 EA, 11, test blood sugar tid dx E11.9 on insulin, [facility] #[id number], Supply, 180, cm, 09/12/23 13:35:00 EST, Height/Length Dosing, 149.8, kg, 09/12/23 13:35:00 EST, Weight DosingStart: 84-69-0794GBT TO TEST BLOOD SUGARS THREE TIMES A DAY.[id number]: 12-05-2024 End: 17-73-5527Nwh Needle 31G x 6mm, See Instructions, 100 EA, 1, Pen Needle 31G x 6mm, [facility] #[id number], Supply, 182, cm, 12/20/24 13:40:00 EDT, Height/Length Dosing, 118.4, kg, 12/20/24 13:40:00 EDT, Weight DosingStart: 21-09-1502UJG TO TEST BLOOD SUGARS THREE TIMES A DAY.[id number]: 03-13-2025 Goals DatePatient GoalDesired Activity/[id number] Functional Status MqwoBqnafagdotTswawwSvviwoai91-75-6881Eudighaswc StatusN/[facility]05-02-2025[facility]16-2025Patient Health Questionnaire 2 item (PHQ-2) [Reported][facility]Sf[facility]lf05-71-5108 Functional StatusN/[facility]11-19-2024Functional StatusN/A [facility]11-03-2024Functional StatusN/[facility]09-09-2024Patient Health Questionnaire 2 item (PHQ-2) [Reported] [facility] HospitalUdiawusjlw18-87-1220Rrkyghjtmr StatusN/[facility]06-21-2024Functional StatusN/[facility]05-27-2024Functional StatusN/[facility]04-01-2024Functional StatusN/[facility]03-29-2024 Functional statusPatient is Progressing Toward [facility] Work Phone: [phone]) [phone] StatusN/[facility]03-11-2024Functional StatusN/[facility]02-28-2024 Functional StatusN/[facility] 35-60-2825Sloqacsbhs StatusN/[facility]02-22-2024Functional statusPatient at [facility] Work Phone: [phone]jnxc StatusN/[facility]01-28-2024Functional StatusN/[facility]12-17-2023 Functional StatusN/[facility]11-01-2023Functional status [facility] Work Phone: [phone]) [phone] StatusN/[facility]10-22-2023Function[facility] Status[facility]10-02-2023 Functional StatusN/[facility] 69-04-2752Lbtctxpdzu StatusNoK[facility]01-24-2023Functional StatusN/[facility]12-15-2022 Functional StatusN/[facility]08-09-2022Functional StatusN/A [facility] [id number] StatusN/[facility] Mental Status CxjbJrvtsylrbiMkossiZivybwim21-25-9624Gqinvuksl functionCognitive Status [facility] Work Phone: [phone] functionCognitive Status [facility] Work Phone: [phone] functionCognitive Status [facility] Work Phone: Clinical Notes 12-28-2021 to 06-05-2025 Note Date & VgbkQdhbHzzhktmn27-91-9546 History of Present illness Narrative* Kayla Sweeney MD - 06/05/2025 1:10 PM EDT Images from the original note were not included. Nicole Lora is a 65 y.o. male No ref. [...] twice a day. Blood sugar in our mgkxle474; A1C 11. SUBJECTIVE: MEDICATIONS: Current Outpatient Medications [...] TO TEST BLOOD SUGAR Continuous Blood Gluc Shingle Cutter (FreeStyle Sage 3 [place]) device 1 each, Does not apply, Continuous Continuous Blood Gluc Sensor (FreeStyle Sage 3 Sensor) misc 1 each, Does not apply, Every 14 days cyclobenzaprine (FLEXERIL) 10 mg, Oral, Nightly DULoxetine (CYMBALTA) 120 mg, Oral, Daily Fiasp FlexTouch 40 Units, Subcutaneous, 3 times daily with meals gabapentin (NEURONTIN) 800 mg, Oral, 3 times daily glucose blood (ApplitsTouch Verio) test strip USE TO TEST BLOOD [...] disease (HCC) 11/17/2023 Acute hypoxemic respiratory failure ([facility]) Acute on chronic respiratory failure with hypercapnia ([facility]) AMY (acute kidney injury) Arthritis Asthma ([facility]) Cataract Chronic kidney disease, stage 3b ([facility]) Diabetes ([facility]) Diabetes mellitus with neuropathy ([facility]) Dietary counseling and surveillance Dry eyes GERD (gastroesophageal reflux disease) Hypertension Lymphedema of both lower extremities 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 Insulin long-term use ([facility]) Vitamin D deficiency Encounter for dietary consultation Hyperlipemia, mixed Primary hypertension Follow up in about 3 months (around 09/05/2025). documented in this encounterBarn[facility] HospitalHybgqrvqfn37-53-8585 History of Present illness Narrative* Perlita Meeks MD - 06/02/2025 8:30 AM EDT Allergies Allergen Reactions Penicillins Rash Penicillamine Unknown Past Medical History: Diagnosis Date Acute exacerbation of chronic obstructive pulmonary disease (HCC) 11/17/2023 Acute hypoxemic respiratory failure (HCC) Acute on chronic respiratory failure with hypercapnia (HCC) AMY (acute kidney injury) Arthritis Asthma (HCC) Cataract Chronic kidney disease, stage 3b ([facility]) Diabetes (HCC) Diabetes mellitus with neuropathy ([facility]) Dietary counseling and surveillance Dry eyes GERD (gastroesophageal reflux disease) Hypertension Lymphedema of both lower extremities 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 (HCC) Morbid obesity with body mass index (BMI) of 40.0 to 49.9 ([facility]) Onychomycosis Pneumonia 06/19/2024 [facility] (pulmonary valve disease) Type 2 diabetes mellitus with hyperglycemia ([facility]) Vitamin D deficiency, unspecified Assessment/Plan Diabetes Mellitus [...] blood pressure and cholesterol. documented in this encounterBarn[facility] HospitalTzdivgkvdc66-10-8010 History of Present illness Narrative* Mounika Brooke MD - 04/29/2025 11:00 AM [...] monitor. No change in regimen. Morbid obesity ([facility]) - continue to monitor weight BMI 36.0-36.9,adult documented in this encounterBarnes-Jewish [facility] HospitalIaoksomxig37-06-7274 Telephone encounter Note* Telephone Encounter - Cooper Bradford - 03/24/2025 8:06 AM EDT Pt called into the office, he wants to cancel the nurse that is coming to his apartment. He said itis not working out. He thinks might be [place] [facility] HospitalTaezybtvyl95-78-6053 Miscellaneous Notes* Telephone Encounter - Cooper Bradford - 03/24/2025 8:06 AM EDT Pt called into the office, he wants to cancel the nurse that is coming to his apartment. He said itis not working out. He thinks might be [place] documented in this encounterBarnes-Jewish [facility] HospitalTaelwcdtga49-88-8088 History of Present illness Narrative* Mounika Brooke MD - 03/13/2025 12:20 PM EDT Images from the original note [...] Flowsheet Row Patient Outreach from 03/11/2025 in [facility] with Grecia Mcneil [employer] [facility] Information ED, Hospital or Mcfp Facility Discharge? Hospital Patient has been contacted within two business days of discharge Yes Diagnosis Electorolyte abnormality from severe hyperglycemia, left leg cramps Discharge Date 03/07/25 Discharged To: Home Setting Discharge Hospital [facility] Engagement Admission Date 03/05/25 Medications Discharge [...] Comments DI: CXR, BW Call End Time 944 Review of Systems General: Denies fever, chills [...] Muscle cramps - resolved Long-term insulin use ([facility]) Difficulty walking - continue to use walker Essential (primary) hypertension Stable, continue to monitor. No change in regimen. Morbid obesity ([facility]) - continue to monitor weight BMI 38.0-38.9,adult Follow up if symptoms worsen or fail to improve. documented in this encounterBarnes-Jewish Saint [facility] HospitalEeoajaeumu61-69-5163 NoteDischarge Summary Admission and Discharge Information Admit Date/Time:03/05/2025 [...] to ambulate, missing his insulin for 2 days.He was subsequently [facility] to [facility] with left leg muscle spasm secondary toelectrolyte abnormality from severe hyperglycemia, acute hyperosmolar nonketotic [...] bilaterally, speech normal Ps (more content not included)...[facility] HospitalComment on above: Result Comment: Electronically Signed By: NAHOMY LYMAN, Jordan\.br\Date and Time Signed: 03/07/25 09:36 [id number] NoteInterdisciplinary Note - PT PT Evaluation completed with an [facility] score of 22/24. Pt sitting EOB at entrance and was able to perform sit to stand transfers with Mod I. Pt was able to ambulate with FWW with no reports of leg pain. Did ambulate x 2 times with no LOB or pain. Pt would be functionally safe to return home with useof FWW as prior. 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 1. Leg muscle spasm (M62.838: Other muscle spasm) Secondary to electrolyte abnormalities from severe hyperglycemia. Resolved. Was treated with orphenadrine. Ordered: [facility] Hospital Care/Day Moderate 35 Minutes 55746 2. Type 2 diabetes mellitus with hyperosmolar nonketotic hyperglycemia (E11.00: Type 2 diabetes mellitus with hyperosmolarity without nonketotic hyperglycemic- hyperosmolar coma ([facility])) Acute hyperosmolar nonketotic hyperglycemia???present on admission. Secondary to noncompliance with medication. Treated with IV insulin drip and IV fluid. Hemoglobin A1c 11.8%. Will start patient on long-acting insulin, regular insulin and sliding scale insulin. Ordered: [facility] Hospital Care/Day Moderate 35 Minutes 66436 3. Pseudohyponatremia (R79.89: Other specified abnormal findings of blood chemistry) Secondary to hypoglycemia. Resolved. Ordered: [facility] Hospital Care/Day Moderate 35 Minutes 13923 4. CKD (chronic kidney disease) (N18.9: Chronic kidney disease, unspecified) Chronic kidney disease stage III???back to baseline. Ordered: [facility] Hospital Care/Day Moderate 35 Minutes 95790 5. Hypertension (I10: Essential (primary) hypertension) Blood [...] made to ensure accuracy. However inadvertent computerized floor technician errors may be present. Jordan Macario. [...] wall: no deformity. Gastrointestin (more content not included)...[facility] HospitalComment on above:Result Comment: Electronically Signed By: NAHOMY LYMAN, Jordan\.br\Date and Time Signed: 03/06/25 10:24 [id number] NoteHistory and Physical Basic Information Admit Date/Time:03/05/2025 21:17 [...] wears 4LPM at night, TC, obesity. He presentedto the hospital with severe muscle spasms to [...] was in his car and he physically couldn'twalk out there to get it because of his leg. ED Course: Patient found to have a serum glucose of 1084. Sodium low at 119 (correct Na for tmyuzml139). No evidence of DKA as AGAP and CO2 normal. Beta hydroxybutyrate elevated. Creatinine elevatedat 1.9, it appears his baseline is 1.5-1.9. [...] 20:15:00) Lymph Auto: 17.9 % (03/05/25 20:15:00) [place] Auto: 6.5 % (03/05/25 20:15:00) Eos Auto: 2.4 % (03/05/25 20:15:00) Basophil Auto: 0.9 % (03/05/25 20:15:00) Neutro Absolute: 5 E9/L (03/05/25 20:15:00) Lymph Absolute: 1.2 E9/L (03/05/25 20:15:00) [place] Absolute: 0.4 E9/L (03/05/25 20:15:00) Eos Absolute: [...] 1.2 (03/05/25 20:15:00) B (more content not included)...[facility] HospitalComment on above: Result Comment: Electronically Signed By: Erick LYMAN, Jigna\.br\Date and Time Signed: 03/05/25 23:22 [id number] History of Present illness Narrative* Mounika Brooke MD - 02/05/2025 12:20 PM EDT Images from the original note were not included. Subjective Patient ID: Nicole Lora is a 65 y.o. male who presents for No chief complaint on file.. HPI Pt here for follow up. Has been working with [employer] for possible scooter. States they have been [...] weakness, bilateral - Continue to work with [employer] Essential (primary) hypertension Stable, continue to monitor. No change in regimen. Difficulty walking - as above Type 2 diabetes mellitus with hyperglycemia, with long-term current use of insulin (HCC) - continue to follow w/ endocrinology Long-term insulin use (HCC) Morbid obesity ([facility]) - continue to monitor weight BMI 36.0-36.9,adult documented in this [facility]06-18-2025 Telephone encounter Note* Telephone Encounter - Aggie Toribio - 02/05/2025 10:29 AM EDT Brittani from called and stated that he's been unbalanced, having a hard time sleeping, his bloodsugar is at 155. Pt states that is too low for him. [facility] Ygbfwohzvu22-13-9185 Miscellaneous Notes* Telephone Encounter - Aggie Toribio - 02/05/2025 10:29 AM EDT Brittani from called and stated that he's been unbalanced, having a hard time sleeping, his bloodsugar is at 155. Pt states that is too low for him. documented in this [facility]05-07-2025 History of Present illness Narrative* Kayla Sweeney MD - 12/25/2024 11:50 AM EDT Nicole Lora is a 64 y.o. male [...] mg, Every 24 hours Continuous Blood Gluc Shingle Cutter (FreeStyle Sage 3 [place]) device 1 each, Does not apply, Continuous [...] History: Diagnosis Date Acute hypoxemic respiratory failure ([facility]) Acute on chronic respiratory failure with hypercapnia ([facility]) AMY (acute kidney injury) ([facility]) Arthritis Asthma Cataract Chronic kidney disease, stage 3b (HCC) ([facility]) Diabetes ([facility]) Diabetes mellitus with neuropathy ([facility]) Dietary counseling and surveillance Dry eyes GERD (gastroesophageal reflux disease) Hypertension ([facility]) Lymphedema of both lower extremities 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 ([facility]) Morbid obesity with body mass index (BMI) of 40.0 to 49.9 ([facility]) Onychomycosis Pneumonia 06/19/2024 [facility] (pulmonary valve disease) Type 2 diabetes mellitus with hyperglycemia ([facility]) Vitamin D deficiency, unspecified Past Surgical [...] hyperglycemia, with long-term current use of insulin ([facility]) - gabapentin (Neurontin) 600 MG tablet; [...] at supper, start Tradjenta 5 mg once aday. C/o gabapentin to 600 3 times a day. Insulin long-term use ([facility]) Vitamin D deficiency Encounter for dietary consultation Hyperlipemia, mixed ([facility]) Primary hypertension ([facility]) Follow up in about 6 months (around 06/27/2025). documented in this encounterBarnes-Jewish Saint Peters [id number] Hospital Discharge instructions Patient Education 12/21/2024 14:26:36 [...] glucose levels. In many cases, these goals maybe: Before meals (preprandial): 80 130 mg/dL (4.4 [...] concerns. Where to find more information The [place] Diabetes Association: diabetes.org The Association of Diabetes [...] provider. Document Revised: 06/23/2023 Document Reviewed: 06/23/2023 [employer] Patient Education 2023 [employer] 12/21/2024 14:26:35 Correction Insulin Correction Insulin [...] it is in the correct range. Bring thislog with you to your medical visits. This information will help your health care provider manage your medicines. Note anything that may affect your blood glucose, such as: ?Changes in normal exercise or activity. ?Changes in your normal schedule, such as changes in your sleep routine, going on vacation, changing your diet, or holidays. ?New vmzq-efh-toppckh or prescription medicines. ?Illness, stress, or anxiety. [...] provider. Document Revised: 08/12/2021 Document Reviewed: 08/12/2021 [employer] Patient Education 2023 [employer] 12/21/2024 14:25:51 Diabetic Neuropathy Diabetic Neuropathy [...] body, such as an arm, a leg, orthe face. The injury may involve one nerve or a small group of nerves. Focal neuropathy can be painful and unpredictable. It occurs most often in older adults with diabetes. This often develops suddenly, but usually improves over time and does not cause long-term problems. Proximal neuropathy. This type of nerve damage affects the nerves of the thighs, hips, buttocks, orlegs. It causes severe pain, weakness, and muscle (atrophy), usually in the thigh muscles. Itis more common among older men and people who have type 2 diabetes. The length of recovery time mayvary. What are the causes? Peripheral, autonomic, and [...] be secured to an exam table that movesyou from a lying position to an upright [...] may have tests to rule out other possiblecauses of this type of neuropathy. Tests may [...] level and your A1C level within your targetrange. This can help prevent neuropathy from getting worse. Check your skin and feet every day for cuts, bruises, redness, blisters, or sores. Do not use any products that contain nicotine or tobacco, such as cigarettes, e- cigarettes, and chewing tobacco. This information is not intended to replace advice given to you by your health care provider. Make sure you discuss any questions you have with your health care provider. Document Revised: 12/17/2020 Document Reviewed: 12/17/2020 [employer] Patient Education 2023 [employer] Follow Up Care 12/20/2024 13:30:13 With:KAYLA SWEENEY [address]: [address] [place] [address]- Business (1) When: Unknown Comments:Follow as scheduled in December 2024 With:Mounika Brooke Address: [place] [address]- Business (1) When:7 to 10 days Comments:Call for followup appointment [facility] 05-03-2025 NoteDischarge Summary Admission and Discharge Information Admitting Physician [...] 3rd toes, and hypertension who presented to [facility] ER with chief complaint of left leg spasms.Admitted 12/20/24 with AMY, severe hyperglycemia, borderline HHS, dehydration, left leg spasm, and weakness. No confusion and did not fully meet HHS criteria. given 2L IV fluid bolus and maintenance fluids. Started on insulin regimen he states he was supposed to be taking. He states he had not taken i nsulin for several days, but script not filled [...] he has not picked up from his healthcare social worker yet. His glucose was slowly improving with [...] losartan, which I confirmed he has [facility] Refilled glucometer, test strips, lancets???confirmed with [facility] that they can fill this and his insurance is covering it Refilled regular insulin at lower dose to prevent lows as this will likely be a new medication for him since he has not been compliant with his regimen. Previously Dr. Sweeney had prescribed 50 units3 times daily. I prescribed 40 units every morning, 40 units in the evening and 20 units before bed. I talked to Kori and had them put the Tradjenta back for now as I did not want him to take theinsulin and Tradjenta at the same time and experienced a low. I recommended to the patient that he only take the insulin, not take the Tradjenta, and follow-up with Dr. Sweeney and ultimately defer management of his diabetes to his healthcare social worker if he is compliant with follow-up. He [...] adenopathy, no tenderness Eye (more content not included)...[facility] HospitalComment on above: Result Comment: Electronically Signed By: Toni Gutierrez III, DO\.br\Date and Time Signed: 12/21/24 14:44 [id number] Evaluation + Plan noteExtracted from:Title:Discharge NoteAuthor:Toni Gutierrez III, DODate:12/21/24 Discharge Diet(s): Regular ( 12/21/24 14:24:00) Prescriptions Glucose Kit, See Instructions HumuLIN R KwikPen (Concentrated) human recombinant 500 units/mL subcutaneous solution, See Instructions, 1 refills Pen Needle 31G x 6mm, See Instructions, 1 refills Robaxin-750 oral tablet, 750 mg= 1 tab(s), Oral, TID Home gabapentin 600 mg Tab, 600 mg= 1 tab(s), Oral, TID With When Contact Information KAYLA SWEENEY [facility] [facility], [address] [place] [address]- Business (1) Additional Instructions: Follow as scheduled in December 2024 Mounika Brooke Within 7 to [address] [place] [address]- Business (1) Additional Instructions: Call for followup appointment Blood Glucose Monitoring, Adult Correction Insulin Diabetic Neuropathy Extracted from:Title:Admission H & PAuthor:Toni Gutierrez III, DODate: 12/20/24 The patient is a 64-year-old male with past medical history of insulin-dependent type 2 diabetes, poorly controlled diabetes, medication nonadherence, peripheral neuropathy, lower extremity amputations including left foot transmetatarsal amputation, partial amputation of his right 2nd and 3rd toes, and hypertension who presented to [facility] with chief complaint of left leg spasms [...] 2024. Follows with Dr. Sweeney in [place] Status post 2 L IV fluid bolus [...] Panel Initial Hospital Care/Day Moderate 55 Minutes 89919 2. Leg muscle spasm (M62.838: Other muscle [...] state. Recommend weight loss. Defer to his healthcare social worker to ensure is well versed in therapies [...] and subcu heparin for DVT prophylaxis. Extracted from:Title:ED NoteAuthor:Greyson ENGLE, Paddy Nunez.Date:12/20/24 1. Hyperglycemia (R73.9: Hyp erglycemia, unspecified) 2. [...] BID, # 20 cap(s), Refills(s) 0, Pharmacy: [facility][id number], 183, cm, 06/23/24 13:45:00 EST, Height/Length Dosing, [...] mL, Soln-IV, IV, Once, Stop date 12/20/24 15:14:00EDT, STAT, Start date 12/20/24 15:14:00 EDT, Infuse over 61, minute(s) Sodium Chloride 0.9% intravenous solution, 1,000 mL, Soln-IV, IV, Once, Stop date 12/20/24 13:48:00EDT, STAT, Start date 12/20/24 13:48:00 EDT, Infuse over 61, minute(s) Basic Metabolic Panel Beta-hydroxybutyrate Blood Gas Art, with Lytes, Gluc, Lact CBC w/ Auto Diff ECG 12 Lead Adult ED Cardiac Monitoring ED Physician consult Hospitalist for continued care eGFR Extra Blue Tube Extra SST Tube Hepatic Function Panel Routine Capillary Glucose POC UA with Cult Rflx XR Chest Single View [facility] 05-03-2025 NoteInterdisciplinary Note - PT PT Treatment [...] future falls. Will continue to follow while inpatient.[facility] NoteInterdisciplinary Note - OT Pt is seen this date for OT evaluation. [facility] score: . pt presents with ability to complete functional transfers and short mobility at CGA level with FWW for support, limited by spasms behind L knee, and decreased activity tolerance. OT to continue to follow for treatment. Recommending HH atd/c.[facility]05-[facility] NoteHistory and Physical Chief Complaint [...] 3rd toes, and hypertension who presented to [facility] with chief complaint of left leg spasms.He [...] confusion. He states that he follows with healthcare social worker Dr. Sweeney in [place]. He states that he only takes insulin, [...] 6.2 E9/L (12/20/24 1 (more content not included)...[facility] HospitalComment on above:Result Comment: Electronically Signed By: Toni Gutierrez III, DO.samir\Date and Time Signed: 12/20/24 19:04 [id number] NoteED Patient Education Note Endocrinology Hyperglycemia Hyperglycemia [...] instructions at home: General instructions ??? Take nfyw-gve-yphuqmf and prescription medicines only as told by [...] need help with this (more content not included)...[facility]04-30[facility] History of Present illness Narrative* [...] notes on w/c assessment documented in this [facility]04-22-2025 Telephone encounter Note* Telephone Encounter - Cooper Bradford - 12/10/2024 1:35 PM EDT [facility] He stopped in office to Pt is in need of a chair, there is no note added in the last office visit could that be added to the note. He should be seen next week unless he answers his phone today. [facility] [id number] Miscellaneous Notes* Telephone Encounter - Cooper Bradford - 12/10/2024 1:35 PM EDT [facility] He stopped in office to Pt is in need of a chair, there is no note added in the last office visit could that be added to the note. He should be seen next week unless he answers his phone today. documented in this [facility]04-16-2025 History of Present illness Narrative* Mounika Brooke [...] Flowsheet Row Patient Outreach from 12/04/2024 in [facility] with Kristi Canales LPN Hospital Information ED, Hospital or Mcfp Facility Discharge? ED Patient has been contacted within 2 days of being seen in the ED Yes Diagnosis Hyperglycemic, Bronchitis Discharge Date 12/02/24 [Left AMA] Discharged To: Home Setting Discharge [facility] Engagement Call Start Time 0940 Admission [...] Leg weakness, bilateral BMI 35.0-35.9,adult Morbid obesity ([facility]/HCC) Type 2 diabetes mellitus with diabetic chronic kidney disease ([facility]/HCC) Chronic kidney disease, stage 3b (HCC) (CMS/HCC) Essential (primary) hypertension ([facility]/HCC) Acquired absence of left foot ([facility]/HCC) Reviewed ED course with pt. Encouraged pt to continue medications as prescribed. No changes in chronic medications. Encouraged continued follow up with specialists. Due to weakness and difficulty walking, discussed need for further assistance. Follow up if symptoms worsen or fail to improve. documented in this encounterBarnes-Jewish Saint Peters [id number] Hospital Discharge instructions Patient Education 12/02/2024 15:24:12 [...] condition. Follow these instructions at home: Take rfcc-nyy-yvccdhy and prescription medicines only as told by [...] and water are not available, use hand asphalt paving foreman. Avoid contact with people who have cold [...] it is easier to cough up. Take ufho-vig-ydlwysd and prescription medicines only as told by [...] provider. Document Revised: 11/17/2022 Document Reviewed: 12/08/2021 [employer] Patient Education 2023 [employer] 12/02/2024 15:24:12 Type 2 Diabetes Mellitus, Self-Care, Adult, Ctjs-fk-Dwsn Type 2 Diabetes Mellitus, Self-Care, Adult When [...] tell you how to do this. Take yeuo-vqk-qbjgryv and prescription medicines only as told by [...] for cuts, bruises, redness, blisters, or sores. [place] your teeth and gums two times a [...] more information about diabetes, please go to: [place] [employer] Association: www.diabetes.org [place] [employer] of Diabetes Care and Education Specialists: [...] provider. Document Revised: 11/01/2021 Document Reviewed: 11/01/2021 [employer] Patient Education 2023 [employer] 12/02/2024 15:24:12 Hyperglycemia Hyperglycemia Hyperglycemia occurs [...] these instructions at home: General instructions Take mhbl-hok-olfkirk and prescription medicines only as told by [...] alert jewelry. Where to find more information [place] Diabetes Association: www.diabetes.org Contact a health care [...] provider. Document Revised: 05/20/2021 Document Reviewed: 05/21/2021 [employer] Patient Education 2023 [employer] Follow Up Care 12/02/2024 12:36:28 With:Mounika Brooke Address: [address] [place] [address]- Business (1) When:12/05/2024 15:08:13 Comments:Call Dr for diagnosis based follow up [facility] 04-14-2025 NoteED Patient Education Note Endocrinology Type [...] you how to do this. ??? Take vlnh-ryf-kuyondo and prescription medicines only as told by [...] mL), one 5 oz (more content not included)...[facility]01-[facility] History of Present illness Narrative* [...] as a base, plus scale #3 ?, Arlethtadueto 2.12/999 mg twice a day. IM 01/2024 [...] twice a day. Blood sugar in our ukivbt565; A1C 11. SUBJECTIVE: MEDICATIONS: Current Outpatient Medications Medication Instructions albuterol HFA 90 mcg/act inhaler 2 puffs, Every 4 hours PRN amLODIPine (Norvasc) 10 MG tablet 1 tablet, Daily atorvastatin (LIPITOR) 40 mg, Every 24 hours Continuous Blood Gluc Shingle Cutter (FreeStyle Sage 3 [place]) device 1 each, Does not apply, Continuous [...] History: Diagnosis Date Acute hypoxemic respiratory failure ([facility]) Acute on chronic respiratory failure with hypercapnia ([facility]) AMY (acute kidney injury) ([facility]) Arthritis Asthma ([facility]) Cataract Chronic kidney disease, stage 3b (HCC) ([facility]) Diabetes [place] Diabetes mellitus with neuropathy ([facility] Dietary counseling and surveillance Dry eyes GERD (gastroesophageal reflux disease) Hypertension ([facility]) Lymphedema of both lower extremities 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 documented in this encounterBarnes-Jewish Saint Peters HospitalJsnynjlpps04-38-1964 Telephone encounter Note* Telephone Encounter - Mounika Brooke MD - 08/06/2024 10:26 AM EST Ok to send [facility] [id number] Miscellaneous Notes* Telephone Encounter - Mounika Brooke MD - 08/06/2024 10:26 AM EST Ok to send * Telephone Encounter - Cooper Bradford - 08/06/2024 8:48 AM EST [facility] called they need this information sent for to them for the Referral on the Hyperbaric Oxygen Treatment A1C, pvr, and last 30day of notes on the wound Please send to fax [phone] to [place] documented in this encounterBarnes-Jewish Saint Peters HospitalPcynqqyxkm89-62-5154 Telephone encounter Note* Telephone Encounter - Cooper Bradford - 08/06/2024 8:48 AM EST [facility] called they need this information sent for to them for the Referral on the Hyperbaric Oxygen Treatment A1C, pvr, and last 30day of notes on the wound Please send to fax [phone] to [place] [facility] HospitalMhsuualjju25-01-7465 NoteTime Out 07/22/2024. 3:03 PM. Confirmed correct patient, procedure, site, and patient consented. Anesthesia Topical anesthesia was used. Anesthetic medications included Proparacaine 0.5%. Procedure Preparation included 5% betadine to ocular surface. A 30 gauge needle was used. Injection: 0.3 mg ranibizumab 0.3 MG/0.05ML Route: Intravitreal, Site: Left Eye [facility]: 44034-002-87, Lot: [id number], Expiration date: 04/29/2026, Waste: 0 mL Post-op [...] with increased pain, redness, decreased vision or concerns.[facility] HospitalUmewvgysrg88-52-5007 History of Present illness Narrative* Perlita Meeks MD - 07/22/2024 2:15 PM EST Assessment/Plan documented in this encounterBarnes-Jewish Saint Peters [id number] History of Present illness Narrative* Kayla Sweeney [...] twice a day. Blood sugar in our uvqslj788; A1C 11. SUBJECTIVE: MEDICATIONS: Current Outpatient Medications Medication Instructions albuterol HFA 90 mcg/act inhaler 2 puffs, Every 4 hours PRN atorvastatin (LIPITOR) 40 mg, Every 24 hours Continuous Blood Gluc Shingle Cutter (FreeStyle Sage 3 [place]) device 1 each, Does not apply, Continuous [...] History: Diagnosis Date Acute hypoxemic respiratory failure ([facility]) Acute on chronic respiratory failure with hypercapnia ([facility]) AMY (acute kidney injury) ([facility]) Arthritis Asthma ([facility]) Cataract Chronic kidney disease, stage 3b (HCC) ([facility]) Diabetes ([facility]) Diabetes mellitus with neuropathy ([facility]) Dry eyes GERD (gastroesophageal reflux disease) Hypertension ([facility]) Lymphedema of both lower extremities 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 ([facility]) Onychomycosis Pneumonia 06/19/2024 [facility] (pulmonary valve disease) Past Surgical History: [...] hyperglycemia, with long-term current use of insulin ([facility]) - POCT glucose manually resulted - [...] Jentadueto2.12/999 twice a day. Insulin long-term use ([facility]) Vitamin D deficiency Encounter for dietary consultation Diet and exercise reviewed with the patient Hyperlipemia, mixed (CMS/HCC) Primary hypertension ([facility]/HCC) Class 2 severe obesity due to excess calories with serious comorbidity and body mass index (BMI) of38.0 to 38.9 in adult ([facility]) Follow up in about 6 weeks (around 08/26/2024). documented in this encounterBarnes-Jewish Saint Peters HospitalWrzyytwibr23-25-1437 History of Present illness Narrative* Mounika Brooke [...] Flowsheet Row Office Visit from 07/11/2024 in [facility] with Mounika Brooke MD Hospital Information ED, Hospital or Mcfp Facility Discharge? ED Patient has been contacted within 1 week of being seen in the ED Yes Discharge Date 07/09/24 Discharged To: Home Setting Discharge [facility] Engagement Admission Date 07/09/24 Medications Discharge [...] No follow-ups on file. documented in this encounterBarnes-Jewish Saint Peters HospitalEkmgzlktsk23-01-4123 Hospital Discharge instructions Patient Education 07/09/2024 16:21:24 [...] told by your health care provider. Take dooz-qmp-cumorun and prescription medicines only as told by [...] provider. Document Revised: 04/14/2022 Document Reviewed: 04/14/2022 [employer] Patient Education 2023 [employer] Follow Up Care 07/09/2024 14:36:54 With:Zak Quiñones Address: [address] [place], [place] [id number] Business (1) When:07/12/2024 16:10:31 [facility] 11-19-2024 NoteED Patient Education Note Orthopedics Tendinitis [...] by your health care provider. ??? Take ydew-ppp-mshrazh and prescription medicines only as told by [...] (compression), and elevatingthe are (more content not included)...[facility]11-[facility] Evaluation + Plan noteExtracted from:Title:ED Note Author:Rudi ENGLE, JansenDate:07/09/24 Left shoulder pain (M25.512: Pain in left shoulder) Tendinitis (M77.9: Enthesopathy, unspecified) Ordered: acetaminophen-oxycodone, 1 tab(s), Oral, q6hr as needed for pain for 3 day(s), 10 tab(s), Refill(s)0, [facility] #[id number], 183, cm, 07/09/24 14:44:00 EST, Height/Length Dosing, 132.4, kg, 07/09/24 14:44:00 EST, Weight Dosing Orders: acetaminophen-oxycodone, 1 tab(s), Tab, Oral, Once, Stop date 07/09/24 15:01:00 EST, STAT, Start date 07/09/24 15:01:00 EST Apply Sling XR Shoulder Complete Right Future Appointments Appointment Date:09/04/2024 03:15:00 PM Scheduled Provider:Taz THOMAS MD Location:[facility] Appointment Type:URO Office Visit [facility] 11-13-2024 History of Present illness Narrative* Mounika [...] timestamp. Flowsheet Row Documentation from 06/25/2024 in [facility] with Mary Alice Fortune MA Hospital Information ED, Hospital or Mc[facility] Facility Discharge? ED Patient has been contacted within 1 week of being seen in the ED Yes Diagnosis Pneumonia Discharge Date 06/23/24 Discharged To: Home Setting Discharge [facility] Engagement Admission Date 06/23/24 Medications Discharge [...] or fail to improve. documented in this encounterBarnes-Jewish Saint Peters HospitalHjpouneswc03-83-3361 Telephone encounter Note* Telephone Encounter - HARPAL Barnes - 06/24/2024 11:07 AM EST Ok reviewed and we discussed at visit to try to get an earlier appt or talk with Dr. Murray staff [facility] [id number] Miscellaneous Notes* Telephone Encounter - HARPAL Barnes [...] as soon as possible? documented in this encounterBarnes-Jewish Saint Peters HospitalEdtnzsmcsh83-09-2793 Telephone encounter Note* Telephone Encounter - Suzanna Smith MA - 06/24/2024 10:28 AM EST Patient is currently scheduled to see Dr. Sweeney 07-15-2024. [facility] [id number] Telephone encounter Note* Telephone Encounter - HARPAL Barnes - 06/24/2024 8:37 AM EST Please call patient I see he was in ER and diagnosed with pneumonia however his hgba1c was 14 and Iwanted to see if he made appt to see Dr. Murray as soon as possible? [facility] [id number] Hospital Discharge instructions Patient Education 06/23/2024 14:01:17 Community-Acquired Pneumonia, Adult, Ango-nc-Wyyt Community-Acquired Pneumonia, Adult Pneumonia is an infection [...] Follow these instructions at home: Medicines Take mtti-sjb-tscwira and prescription medicines only as told by [...] cannot use soap and water, use hand asphalt paving foreman. Contact a doctor if: You have a [...] provider. Document Revised: 10/05/2022 Document Reviewed: 10/05/2022 [employer] Patient Education 2023 [employer] 06/23/2024 14:01:17 Rib Contusion Rib Contusion A [...] risk for lung collapse and pneumonia. Medicines. Irrj-tou-ihpxczd or prescription medicines may be given to control pain. Injection of a numbing medicine around the nerve near your injury (nerve block). Follow these instructions at home: Medicines Take rfwt-idr-paiancn and prescription medicines only as told by your health care provider. Ask your health care provider if the medicine prescribed to you: ?Requires you to avoid driving or using machinery. ?Can cause constipation. You may need to take these actions to prevent or treat constipation: ?Drink enough fluid to keep your urine pale yellow. ?Take xpsk-ttp-vicwtrb or prescription medicines. ?Eat foods that are [...] provider. Document Revised: 11/11/2020 Document Reviewed: 11/11/2020 [employer] Patient Education 2023 [employer] Follow Up Care 06/23/2024 13:38:04 With:Mounika Brooke Address: [address] [place] [address]- Business (1) When:06/26/2024 13:54:07 Comments:Call for diagnosis based follow up [facility] 11-03-2024 NoteED Patient Education Note Infectious Disease [...] these instructions at home: Medicines ??? Take vehs-hvk-azmhujw and prescription medicines only as told by [...] cannot use soap and water, use hand asphalt paving foreman. Contact a doctor if: ??? You have [...] lungs. ??? Community-acquired pneumonia (more content not included)...[facility]11-03-2024 Evaluation + Plan noteExtracted from:Title:ED Note Author:Paddy Betancourt PA-CDate:06/23/24 Contusion of rib on left [facility] (S20.212A: Contusion of left front wall of thorax, initial encounter) Pneumonia (J18.9: Pneumonia, unspecified organism) Orders: acetaminophen-oxycodone, 1 tab(s), Oral, q6hr for pain for 3 day(s), 12 tab(s), Refill(s) 0, [facility] #[id number], 183, cm, 06/23/24 13:45:00 EST, Height/Length Dosing, 143, kg, 06/23/24 13:45:00 EST, Weight Dosing doxycycline, 100 mg = 1 cap(s), Oral, BID, # 20 cap(s), Refills(s) 0, Pharmacy: [facility] #[id number], 183, cm, 06/23/24 13:45:00 EST, Height/Length Dosing, 143, kg, 06/23/24 13:45:00 EST, Weight Dosing Future Appointments Appointment Date:09/04/2024 03:15:00 PM Scheduled Provider:Taz THOMAS MD Location:[facility] Appointment Type:URO Office Visit [facility] 11-01-2024 History of Present illness Narrative* HARPAL [...] He has an upcoming appointment with his healthcare social worker, Dr. Sweeney. ALLERGIES He is allergic to PENICILLIN. MEDICATIONS: Current Outpatient Medications Medication Instructions albuterol HFA 90 mcg/act inhaler 2 puffs, Every 4 hours PRN atorvastatin (LIPITOR) 40 mg, Every 24 hours Continuous Blood Gluc Shingle Cutter (FreeStyle Sage 3 [place]) device 1 each, Does not apply, Continuous [...] He is advised to consult with his healthcare social worker, Dr. Sweeney, regarding his elevated blood sugar [...] needles has been renewed and sent to [facility]. Assessment/Plan Problem List Items Addressed This [...] Influenza Vaccine (1) 04/21/2024 documented in this encounterBarnes-Jewish Saint Peters [id number] NoteTime Out 05/22/2024. 2:41 PM. Confirmed correct patient, procedure, site, and patient consented. Anesthesia Topical anesthesia was used. Anesthetic medications included Lidocaine 2%, Proparacaine 0.5%. Procedure Preparation included 5% betadine to ocular surface, eyelid speculum. Injection: 0.3 mg ranibizumab 0.3 MG/0.05ML Route: Intravitreal, Site: Left Eye [facility]: 85929-482-02, Lot: [id number], Expiration date: 04/29/2026, Waste: 0 mL Post-op [...] with increased pain, redness, decreased vision or concerns.[facility] HospitalFigpwvwmro23-45-3576 History of Present illness Narrative* PEDRO PABLO Her - 05/22/2024 2:00 PM EDT Images from the original note were not included. 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 Can we help with this [facility] HospitalBntmycyors37-82-1727 Miscellaneous Notes* Telephone Encounter - Mounika Brooke MD - 04/29/2024 2:53 PM EDT Pt has at home oxygen - would benefit from portable oxygen. Can we help with this documented in this [facility]09-09-2024 History of Present illness Narrative* Mounika Brooke [...] Continue to follow w/ vascular * Mounika Brokoe MD - 04/29/2024 2:50 PM EDTAssociated Problem(s): [...] at the same time. Continuous Blood Gluc Shingle Cutter (FreeStyle Sage 3 [place]) device 1 each continuously 1 each 0 [...] retinopathy associated with type 2 diabetes mellitus ([facility]) Encouraged follow up with optho Diabetic neuropathy ([facility]) Stable, continue to monitor. No change in regimen. Gastroesophageal reflux disease Stable, continue to monitor. No change in regimen. Hyperlipidemia ([facility]) Stable, continue to monitor. No change in regimen. Hypertension ([facility]) Stable, continue to monitor. No change in regimen. Long-term insulin use ([facility]) Morbid obesity ([facility]) - continue to monitor weight Restless leg syndrome Currently uncontrolled as pt is out of meds. Refill sent of increased dose Stage 3b chronic kidney disease (HCC) ([facility]) Stable, continue to monitor. No change in regimen. Type 2 diabetes mellitus with hyperglycemia ([facility]) - Uncontrolled, A1c > 13 - encouraged follow up with endo Varicose veins of lower extremity Continue to follow w/ vascular TC (obstructive sleep apnea) Stable, continue to monitor. No change in regimen. Chronic hypoxemic respiratory failure ([facility]) Stable, continue to monitor. No change in regimen. Acute on chronic respiratory failure with hypoxia and hypercapnia ([facility]) Stable, continue to monitor. No change in regimen. Discussed concerning sx to monitor for. Continue oxygen use - pt would benefit from portable oxygen Obesity hypoventilation syndrome ([facility]) Other Visit Diagnoses Encounter for Medicare annual wellness exam - Primary RLS (restless legs syndrome) Relevant Medications rOPINIRole (Requip) 2 MG tablet Oxygen dependent BMI 40.0-44.9, adult ([facility]) The following health maintenance schedule was [...] placed in this encounter. documented in this encounterNOMS [id number] NoteTime Out 04/23/2024. 11:05 AM. Confirmed correct patient, procedure, site, and patient consented. Anesthesia Topical anesthesia was used. Anesthetic medications included Lidocaine 2%, Proparacaine 0.5%. Procedure Preparation included 5% betadine to ocular surface, eyelid speculum. Injection: 0.3 mg ranibizumab 0.3 MG/0.05ML Route: Intravitreal, Site: Left Eye [facility]: [id number], Lot: [id number], Expiration date: 04/29/2026, Waste: 0 mL Post-op [...] with increased pain, redness, decreased vision or concerns.[facility] HospitalVhxjuewysp71-06-0716 History of Present illness Narrative* Perlita Meeks MD - 04/23/2024 10:45 AM EDT Assessment/Plan documented in this encounterNOMS [id number] History of Present illness Narrative* Perlita Meeks MD - 04/15/2024 2:30 PM EDT Assessment/Plan begin anti vegf documented in this [facility]07-10-2024 Hospital Discharge instructions Follow Up Care 02/28/2024 08:07:26 With:MARTHA LYMAN, Taz Abraham, URL Address: [address] [address]- When: Unknown [facility] 07-10-2024 Hospital Discharge instructions Patient Education 02/28/2024 [...] urethra. Follow these instructions at home: Take ynzz-aby-cydyyox and prescription medicines only as told by [...] provider. Document Revised: 02/23/2022 Document Reviewed: 02/23/2022 [employer] Patient Education 2022 [employer] Follow Up Care 02/05/2024 13:59:39 With:MARTHA LYMAN, Taz Abraham, URL Address: [facility] [address] [address]- When: Unknown [facility] 06-17-2024 Hospital Discharge instructions Patient Education 02/05/2024 [...] Care 11/20/2023 14:00:17 With:Taz THOMAS Address: [address] [facility] (1) When: Unknown Comments:Please arrange for a follow-up next week so we can remove your catheter for a voiding trial.Some discharge instructions have been provided.Push fluids to keep the urine clear. [facility]06-17-2024 Note [id number]#1.00Rashawn [facility] 01-15-2024 Hospital Discharge instructions [...] provider. Document Revised: 10/27/2021 Document Reviewed: 07/23/2021 [employer] Patient Education 2021 [employer] Follow Up Care 01/15/2024 16:18:08 With:REID BROOKE Address: [facility] [address] [address]- Business (1) When:Within 3 Day(s) [facility]04-04-2024 NoteHNO ID: [id number] Author: ESAU TRUONG APRN.MATCHING MACHINE OPERATOR Service: ? Author Type: Nurse Specialist Type: Progress Notes Filed: 11/29/2023 07:04 Note Text: [facility] NOTE NAME: NICOLE LORA [facility] NO.: [id number] DATE OF SERVICE: 11/23/2023 ATTENDING PHYSICIAN: MO Yip [facility] Chart Note REASON FOR VISIT: The patient is a resident of [facility]. This is a skilled visit for COPD [...] sliding scale. DICTATED BY: MO Yip/AQT JOB# [id number] [facility]04-04-2024 History of Present illness Narrative* Esau Truong APRN.MO - 11/23/2023 12:00 AM EDT [facility] NOTE NAME: NICOLE LORA [facility] NO.: [id number] DATE OF SERVICE: 11/23/2023 ATTENDING PHYSICIAN: MO iYp [facility] Chart Note REASON FOR VISIT: The patient is a resident of [facility]. This is a skilled visit for COPD with respiratory failure history and other medical concerns. Upon entering theroo, found the patient calm, alert, sitting in bed. The patient just completed morning meal. The patient does not appear to be in distress or discomfort. The patient states feels well today. [facility] has been working with therapy and feels good. The patient states has no pain, no cough, no shortnessof breath. No fever, chills, or nausea. States his appetite is good and bowels have been moving. [facility] has been drinking fluids. Denies urinary [...] Humalog per sliding scale. DICTATED BY: MO Yip KE/SUSYT JOB# [id number] [facility] Evaluation + Plan note Extracted from:Title:[facility] visitAuthor:Taz THOMAS MD PDate:11/20/23 Impression and Plan Assessment and Plan: Diagnosis: BPH with obstruction/lower urinary tract symptoms (DQB62-EN N40.1, Billing Diagnosis, Medical), Other obstructive and reflux uropathy (CRV35-BK N13.8, Discharge, Medical), Feeling of incomplete bladder emptying (ART92-GG R39.14, Billing Diagnosis, Medical), Urinary re tention (KTC71-NI R33.9, Billing Diagnosis, Medical). Additional Plan of [...] less after this procedure than some others, butcould still occur. Full informed consent has been obtained. Will order Local anesthesia.. Future Appointments Appointment Date:01/31/2024 10:30:00 AM Scheduled Provider: Location:[facility] Appointment Type:Urology CALL PAT FT Appointment Date:02/05/2024 01:15:00 PM Scheduled Provider: Location:[facility] Appointment Type:Urology FT Future Scheduled Tests Radiology* XR Chest 2 Views 05/15/23 * XR Chest 2 Views 05/15/23 [facility]04-01-2024 NoteHNO ID: [id number] Author: ALVARO HERRERA, ? Service: ? Author Type: Physician Type: Progress Notes Filed: 11/22/2023 11:38 Note Text: [facility] NOTE NAME: NICOLE LORA [facility] NO.: [id number] DATE OF SERVICE: 11/20/2023 ATTENDING PHYSICIAN: Alvaro Herrera MD [facility] PATIENT HISTORY AND PHYSICAL: HISTORY OF PRESENT ILLNESS: The patient is a 63-year-old male, who is admitted to us from [facility] with a diagnosis of altered [...] with hypernatremia and hyperkalemia-we (more content not included)...[facility] 11-20-2023 [id number]04-01-2024 [id number]#1.00TIFF [facility]04-01-2024 History of Present illness Narrative* Alvaro Herrera - 11/20/2023 12:00 AM EDT [facility] NOTE NAME: NICOLE LORA [facility] NO.: [id number] DATE OF SERVICE: 11/20/2023 ATTENDING PHYSICIAN: Alvaro Herrera MD [facility] PATIENT HISTORY AND PHYSICAL: HISTORY OF PRESENT ILLNESS: The patient is a 63-year-old male, who is admitted to us from [facility] with a diagnosis of altered mental status [...] himself. DICTATED BY: MD KORI Cho/MARCIA JOB# [id number] [employer] documented in this encounterMemorial Health [facility]03-29-2024 Progress note Author Hood Zacarias [facility] November 17, 2023 12:18pmNote Date/TimeMarch 2023 12:18pmFine[place] [address] Nephrology Progress Note Signed Patient: Nicole Lora MR#: [id number] 29 : 1960 Acct:[id number] Age/Sex: 63 / M Adm Date: 4 Loc: Room: [address] [place] [address] Type: ADM IN Attending Dr: Manish Fu MD Copies to: ~ Date of Service: 11/17/2023 Subjective Subjective Narrative: This is a 63-year-old male with a medical history of CKD, DM, HTN, TC, COPD, CHF was transferred from [facility] for shortness of breath and hypercapnic respiratory failure. Patient was admitted at [facility] on September 2023 for COPD and CHF. During hospitalization he wasalso found to have AMY on CKD due to the cardiorenal syndrome. His renal function improved with diuresis. Patient was also found to have urine retentionand had Elliott catheter. Patient was readmitted at [facility] and his diuretic regimen was adjusted. His labs in ER showed AMY with serum creatinine 4.9 mg/dL and hyperkalemia with serum potassium 5.3 mmol/L and anion gap of 18. Patient ABG showed pH 7.25 pCO2 58 oxygen saturation 57. He was placed on BiPAP briefly. Patient on arrival at [facility] had ABG which showed pH 7.19, pCO2 65.9 pO2 90.9%. Patient has a CKD dueto the longstanding DM and HTN baseline creatinine around 1.5 to 1.9 g/ dL. Nephrology is consulted for AMY on CKD [...] 3 Ml Ampul.Neb) 3 ml INHALATION QID.RESP COUNTS INCLUDE 234 BEDS AT THE [facility] Stop: 11/12/24 19:59 Last Admin: 11/17/23 08:11 Dose: 3 ml Atorvastatin Calcium (Atorvastatin 40 Mg Tablet) 40 mg PO QHS COUNTS INCLUDE 234 BEDS AT THE [facility] Stop: 11/12/24 21:59 Last Admin: 11/16/23 21:29 Dose: 40 mg Budesonide (Budesonide 0.5 Mg/2 Ml Ampul.Neb) 0.5 mg INHALATION BID COUNTS INCLUDE 234 BEDS AT THE [facility] Stop: 11/12/24 20:59 Last Admin: 11/17/23 08:11 Dose: 0.5 mg Dextrose (Dextrose 50% In Water 25 Gm/50 Ml Syringe) 0 gm IV-PUSH PRN PRN PRN Reason: Hypoglycemia Stop: 11/10/24 20:56 Duloxetine HCl (Duloxetine 60 Mg Capsule.Dr) 60 mg PO DAILY COUNTS INCLUDE 234 BEDS AT THE [facility] Stop: 11/13/24 08:59 Last Admin: 11/17/23 09:13 Dose: 60 mg Gabapentin (Gabapentin 300 Mg Capsule) 300 mg PO QHS COUNTS INCLUDE 234 BEDS AT THE [facility] Stop: 11/14/24 21:59 Last Admin: 11/16/23 21:02 Dose: Not Given Glucose (Dextrose 40% Gel 15 Gm Tube) 0 gm PO PRN PRN PRN Reason: Hypoglycemia Stop: 11/10/24 20:56 Last Admin: 11/12/23 17:38 Dose: 30 gm Guaifenesin (Guaifenesin 600 Mg Tab.Er.12h) 1,200 mg PO BID COUNTS INCLUDE 234 BEDS AT THE [facility] Stop: 11/12/24 20:59 Last Admin: 11/17/23 09:13 Dose: 1,200 mg Hydralazine HCl (Hydralazine 10 Mg Tablet) 10 mg PO BID COUNTS INCLUDE 234 BEDS AT THE [facility] Stop: 11/12/24 20:59 Last Admin: 11/17/23 09:13 Dose: 10 mg Fluconazole (Diflucan) 200 mg in 100 mls @ 100 mls/hr IV Q24H COUNTS INCLUDE 234 BEDS AT THE [facility] Last Admin: 11/16/23 14:09 Dose: 100 mls/hr Ceftriaxone Sodium (Rocephin) 1 gm in 50 mls @ 100 mls/hr IV Q24H COUNTS INCLUDE 234 BEDS AT THE [facility] Last Admin: 11/16/23 13:20 Dose: 100 mls/hr Insulin Aspart (Insulin Aspart 300 Units/3 Ml Insuln.Pen) 0 units SUBCUT TID.WM.HS COUNTS INCLUDE 234 BEDS AT THE [facility]; Protocol Stop: 11/10/24 21:59 Last Admin: 11/17/23 [...] 40 Mg Tablet.Dr) 40 mg PO DAILY COUNTS INCLUDE 234 BEDS AT THE [facility] Stop: 11/13/24 08:59 Last Admin: 11/17/23 09:13 Dose: 40 mg Sennosides (Sennosides 8.6 Mg Tablet) 1 tab PO BID COUNTS INCLUDE 234 BEDS AT THE [facility] Stop: 11/10/24 20:59 Last Admin: 11/17/23 09:13 Dose: 1 tab Tamsulosin HCl (Tamsulosin 0.4 Mg Cap.Er.24h) 0.4 mg PO DAILY COUNTS INCLUDE 234 BEDS AT THE [facility] Stop: 11/13/24 08:59 Last Admin: 11/17/23 09:13 Dose: 0.4 mg Torsemide (Torsemide 20 Mg Tablet) 40 mg PO DAILY@0800 COUNTS INCLUDE 234 BEDS AT THE [facility] Stop: 11/13/24 09:44 Last Admin: 11/17/23 09:13 Dose: 40 mg Allergies Penicillins Allergy (Verified 10/06/23 20:32) Rash Results - Nephrology Labs 11/17/23 04:39 11/17/23 04:39 Labs: 11/17/23 04:39 BUN 44 H Creatinine 1.47 H Radiology Impressions Impressions - last 24 hours: Any impression(s) listed above is documentation that was entered by the reading physician into a diagnostic report(s) for Nicole oLra. I have reviewed the report(s) and am incorporating any findingsin the treatment plan of this patient where [...] signed by MD Hood Zacarias> 11/17/[address] [facility] Work Phone: 1(672) 351-886203-28-2024 Progress note Author Manish Fu [facility] November 16, 2023 2:26pmNote Date/TimeMarch 2023 1:42pmFine[place] [address] Hospitalist Progress Note Signed Patient: Nicole Lora MR#: [id number] [birth year] : 1960 Acct:[id number] Age/Sex: 63 / M Adm Date: 4 Loc: Room: [address] [place] [address] Type: ADM IN Attending Dr: Manish Fu MD Copies to: ~ Date of Service: 11/16/2023 Subjective Subjective Narrative: Mental status significantly improved today. Patient notes that he is feeling a lot better, and actually request to go home. I did explain that he has been admitted to the hospital multiple times and needs further care at senior care facility. He is agreeable to this plan [...] bed, awake, able to answer questions and followcommands HEENT: Mild pallor with no jaundice. Mucous [...] 11/14/23 09:00 11/16/23 09:07 Pantoprazole 40 Mg Tablet. PO 11/13/24 08:59 40 mg DAILY JIMMIE [...] up with urology follow-up on November 19. Daughterstates Elliott catheter has been in for roughly [...] signed by Manish Fu MD> 11/16/[address] [facility] Work Phone: 1(743) 554-120003-28-2024 Progress note Author Hood [facility] November 16, 2023 12:15pmNote Date/TimeMarch 2023 12:15pmFine, [place] [address] Nephrology Progress Note Signed Patient: Nicole Lora MR#: [id number] [birth year] : 1960 Acct:[id number] Age/Sex: 63 / M Adm Date: 4 Loc: Room: [address] [place] [address] Type: ADM IN Attending Dr: Manish Fu MD Copies to: ~ Date of Service: 11/16/2023 Subjective Subjective Narrative: This is a 63-year-old male with a medical history of CKD, DM, HTN, TC, COPD, CHF was transferred from [facility] for shortness of breath and hypercapnic respiratory failure. Patient was admitted at [facility] on September 2023 for COPD and CHF. During hospitalization he wasalso found to have AMY on CKD due to the cardiorenal syndrome. His renal function improved with diuresis. Patient was also found to have urine retentionand had Elliott catheter. Patient was readmitted at [facility] and his diuretic regimen was adjusted. His labs in ER showed AMY with serum creatinine 4.9 mg/dL and hyperkalemia with serum potassium 5.3 mmol/L and anion gap of 18. Patient ABG showed pH 7.25 pCO2 58 oxygen saturation 57. He was placed on BiPAP briefly. Patient on arrival at [facility] had ABG which showed pH 7.19, pCO2 65.9 pO2 90.9%. Patient has a CKD dueto the longstanding DM and HTN baseline creatinine around 1.5 to 1.9 g/ dL. Nephrology is consulted for AMY on CKD [...] / 350 100 / 100 Output Total 5 / 2075 3825 / 3825 5550 / [...] 40 Mg Tablet) 40 mg PO QHS COUNTS INCLUDE 234 BEDS AT THE [facility] Stop: 11/12/24 21:59 Last Admin: 11/15/23 21:12 Dose: 40 mg Budesonide (Budesonide 0.5 Mg/2 Ml Ampul.Neb) 0.5 mg INHALATION BID JIMMIE Stop: 11/12/24 20:59 Last Admin: 11/16/23 07:40 Dose: 0.5 mg Dextrose (Dextrose 50% In Water 25 Gm/50 Ml Syringe) 0 gm IV-PUSH PRN PRN PRN Reason: Hypoglycemia Stop: 11/10/24 20:56 Duloxetine HCl (Duloxetine 60 Mg Capsule.) 60 mg PO DAILY COUNTS INCLUDE 234 BEDS AT THE [facility] Stop: 11/13/24 08:59 Last Admin: 11/16/23 09:08 Dose: 60 mg Gabapentin (Gabapentin 300 Mg Capsule) 300 mg PO QHS JIMMIE Stop: 11/14/24 21:59 Last Admin: 11/15/23 21:13 Dose: 300 mg Glucose (Dextrose 40% Gel 15 Gm Tube) 0 gm PO PRN PRN PRN Reason: Hypoglycemia Stop: 11/10/24 20:56 Last Admin: 11/12/23 17:38 Dose: 30 gm Guaifenesin (Guaifenesin 600 Mg Tab.Er.12h) 1,200 mg PO BID JIMMIE Stop: 11/12/24 20:59 Last Admin: 11/16/23 09:08 Dose: 1,200 mg Hydralazine HCl (Hydralazine 10 Mg Tablet) 10 mg PO BID COUNTS INCLUDE 234 BEDS AT THE [facility] Stop: 11/12/24 20:59 Last Admin: 11/16/23 09:08 Dose: 10 mg Fluconazole (Diflucan) 200 mg in 100 mls @ 100 mls/hr IV Q24H COUNTS INCLUDE 234 BEDS AT THE [facility] Last Admin: 11/15/23 18:00 Dose: 100 mls/hr Ceftriaxone Sodium (Rocephin) 1 gm in 50 mls @ 100 mls/hr IV Q24H COUNTS INCLUDE 234 BEDS AT THE [facility] Insulin Aspart (Insulin Aspart 300 Units/3 Ml Insuln.Pen) 0 units SUBCUT TID.WM.HS COUNTS INCLUDE 234 BEDS AT THE [facility]; Protocol Stop: 11/10/24 21:59 Last Admin: 11/16/23 09:08 Dose: Not Given Insulin Glargine (Insulin Glargine 300 Units/3 Ml Insuln.Pen) 35 units SUBCUT QHS COUNTS INCLUDE 234 BEDS AT THE [facility] Stop: 11/10/24 21:59 Last Admin: 11/15/23 21:14 [...] 40 Mg Tablet.Dr) 40 mg PO DAILY COUNTS INCLUDE 234 BEDS AT THE [facility] Stop: 11/13/24 08:59 Last Admin: 11/16/23 09:07 Dose: 40 mg Sennosides (Sennosides 8.6 Mg Tablet) 1 tab PO BID COUNTS INCLUDE 234 BEDS AT THE [facility] Stop: 11/10/24 20:59 Last Admin: 11/16/23 09:07 Dose: 1 tab Tamsulosin HCl (Tamsulosin 0.4 Mg Cap.Er.24h) 0.4 mg PO DAILY COUNTS INCLUDE 234 BEDS AT THE [facility] Stop: 11/13/24 08:59 Last Admin: 11/16/23 09:08 Dose: 0.4 mg Torsemide (Torsemide 20 Mg Tablet) 40 mg PO DAILY@0800 COUNTS INCLUDE 234 BEDS AT THE [facility] Stop: 11/13/24 09:44 Last Admin: 11/16/23 09:08 [...] reviewed the report(s) and am incorporating any findingsin the treatment plan of this patient where [...] -4 L, patient still has significant edema andelevated blood pressure. He will benefit from continuation [...] he is supposed to follow-up with urology forcystometry and cystoscopy as outpatient. * Check renal function daily monitor input output Patient has generalized weakness and is being evaluated for SNF placement. Documented By: Hood Zacarias MD 11/16/23 1207 Signed By: <Electronically signed by MD Hood Zacarias> 11/16/[address] [facility] Work Phone: 1(509) 786-952803-27-2024 Progress note Author Hood Zacarias [facility] November 15, 2023 1:58pmNote Date/TimeMarch 2023 1:58pmGary [place] [id number] Nephrology Progress Note Signed Patient: Nicole Lora MR#: [id number] [birth year] : 1960 Acct:[id number] Age/Sex: 63 / M Adm Date: 4 Loc: 4 Room: [address] [place] [address] Type: ADM IN Attending Dr: Manish Fu MD Copies to: ~ Date of Service: 11/15/2023 Subjective Subjective Narrative: This is a 63-year-old male with a medical history of CKD, DM, HTN, TC, COPD, CHF was transferred from [facility] for shortness of breath and hypercapnic respiratory failure. Patient was admitted at [facility] on September 2023 for COPD and CHF. During hospitalization he wasalso found to have AMY on CKD due to the cardiorenal syndrome. His renal function improved with diuresis. Patient was also found to have urine retentionand had Elliott catheter. Patient was readmitted at [facility] and his diuretic regimen was adjusted. His labs in ER showed AMY with serum creatinine 4.9 mg/dL and hyperkalemia with serum potassium 5.3 mmol/L and anion gap of 18. Patient ABG showed pH 7.25 pCO2 58 oxygen saturation 57. He was placed on BiPAP briefly. Patient on arrival at [facility] had ABG which showed pH 7.19, pCO2 65.9 pO2 90.9%. Patient has a CKD dueto the longstanding DM and HTN baseline creatinine around 1.5 to 1.9 g/ dL. Nephrology is consulted for AMY on CKD [...] 3 Ml Ampul.Neb) 3 ml INHALATION QID.RESP COUNTS INCLUDE 234 BEDS AT THE [facility] Stop: 11/12/24 19:59 Last Admin: 11/15/23 11:28 Dose: 3 ml Atorvastatin Calcium (Atorvastatin 40 Mg Tablet) 40 mg PO QHS COUNTS INCLUDE 234 BEDS AT THE [facility] Stop: 11/12/24 21:59 Last Admin: 11/14/23 21:10 Dose: 40 mg Budesonide (Budesonide 0.5 Mg/2 Ml Ampul.Neb) 0.5 mg INHALATION BID COUNTS INCLUDE 234 BEDS AT THE [facility] Stop: 11/12/24 20:59 Last Admin: 11/15/23 09:00 Dose: 0.5 mg Dextrose (Dextrose 50% In Water 25 Gm/50 Ml Syringe) 0 gm IV-PUSH PRN PRN PRN Reason: Hypoglycemia Stop: 11/10/24 20:56 Duloxetine HCl (Duloxetine 60 Mg Capsule.Dr) 60 mg PO DAILY COUNTS INCLUDE 234 BEDS AT THE [facility] Stop: 11/13/24 08:59 Last Admin: 11/15/23 08:14 Dose: 60 mg Gabapentin (Gabapentin 300 Mg Capsule) 300 mg PO QHS COUNTS INCLUDE 234 BEDS AT THE [facility] Stop: 11/14/24 21:59 Glucose (Dextrose 40% Gel 15 Gm Tube) 0 gm PO PRN PRN PRN Reason: Hypoglycemia Stop: 11/10/24 20:56 Last Admin: 11/12/23 17:38 Dose: 30 gm Guaifenesin (Guaifenesin 600 Mg Tab.Er.12h) 1,200 mg PO BID COUNTS INCLUDE 234 BEDS AT THE [facility] Stop: 11/12/24 20:59 Last Admin: 11/15/23 08:14 Dose: 1,200 mg Hydralazine HCl (Hydralazine 10 Mg Tablet) 10 mg PO BID COUNTS INCLUDE 234 BEDS AT THE [facility] Stop: 11/12/24 20:59 Last Admin: 11/15/23 08:14 Dose: 10 mg Fluconazole (Diflucan) 200 mg in 100 mls @ 100 mls/hr IV Q24H COUNTS INCLUDE 234 BEDS AT THE [facility] Insulin Aspart (Insulin Aspart 300 Units/3 Ml Insuln.Pen) 0 units SUBCUT TID.WM.HS COUNTS INCLUDE 234 BEDS AT THE [facility]; Protocol Stop: 11/10/24 21:59 Last Admin: 11/15/23 08:15 Dose: Not Given Insulin Glargine (Insulin Glargine 300 Units/3 Ml Insuln.Pen) 35 units SUBCUT QHS COUNTS INCLUDE 234 BEDS AT THE [facility] Stop: 11/10/24 21:59 Last Admin: 11/14/23 21:10 [...] 40 Mg Tablet.Dr) 40 mg PO DAILY COUNTS INCLUDE 234 BEDS AT THE [facility] Stop: 11/13/24 08:59 Last Admin: 11/15/23 08:14 Dose: 40 mg Sennosides (Sennosides 8.6 Mg Tablet) 1 tab PO BID COUNTS INCLUDE 234 BEDS AT THE [facility] Stop: 11/10/24 20:59 Last Admin: 11/15/23 08:15 Dose: 1 tab Tamsulosin HCl (Tamsulosin 0.4 Mg Cap.Er.24h) 0.4 mg PO DAILY COUNTS INCLUDE 234 BEDS AT THE [facility] Stop: 11/13/24 08:59 Last Admin: 11/15/23 08:14 Dose: 0.4 mg Torsemide (Torsemide 20 Mg Tablet) 40 mg PO DAILY@0800 COUNTS INCLUDE 234 BEDS AT THE [facility] Stop: 11/13/24 09:44 Last Admin: 11/15/23 08:14 [...] reviewed the report(s) and am incorporating any findingsin the treatment plan of this patient where [...] Blood pressure is elevated with edema in thesetting of COPD with pulmonary hypertension that expected [...] restart gabapentin and Jentadueto if needed to controlhis neuropathy and diabetes. * Patient is current on ceftriaxone. Urine culture from Elliott catheter showed Enterobacter Oblong complex and Kaelyn albicans. Patient has indwelling Elliott catheter and he is supposed to follow-up with urology for cystometric and cystoscopy as outpatient. * Check renal function daily monitor input output Documented By: Hood Zacarias MD 11/15/23 6170 Signed By: <Electronically signed by MD Hood Zacarias> 11/15/23 2035 [facility] Work Phone: 1(517) 973-823703-27-2024 Progress note Author Manish Fu [facility] November 15, 2023 1:27pmNote Date/TimeMarch 2023 12:[address]pm[address] [address] Hospitalist Progress Note Signed Patient: Nicole Lora MR#: [id number] [birth year] : 1960 Acct:[id number] Age/Sex: 63 / M Adm Date: 4 Loc: Room: [address] [place] [address] Type: ADM IN Attending Dr: Manish Fu [...] bed, awake, able to answer questions and followcommands HEENT: Mild pallor with no jaundice. Mucous [...] Insuln.Pen SUBCUT 11/10/24 21:59 Not Given TID.WM.HS COUNTS INCLUDE 234 BEDS AT THE [facility] Protocol Insulin Glargine 35 units 11/11/23 [...] up with urology follow-up on November 19. Daughterstates Elliott catheter has been in for roughly [...] signed by Manish Fu MD> 11/15/[address] [facility] Work Phone: 1(511) 457-346803-26-2024 Progress note Author Manish Fu [facility] November 14, 2023 8:19pmNote Date/TimeMarch 2023 8:08pmFine[place] [address] Hospitalist Progress Note Signed Patient: Nicole Lora MR#: [id number] [birth year] : 1960 Acct:[id number] Age/Sex: 63 / M Adm Date: 4 Loc: Room: [address] [place] [address] Type: ADM IN Attending Dr: Manish Fu [...] bed, awake, able to answer questions and followcommands HEENT: Mild pallor with no jaundice. Mucous [...] Insuln.Pen SUBCUT 11/10/24 21:59 Not Given TID.WM.HS COUNTS INCLUDE 234 BEDS AT THE [facility] Protocol Insulin Glargine 35 units 11/11/23 [...] of 4.63, creatinine has trended down to 3.26.Continues to downtrend. Renal ultrasound did not demonstrate [...] <Electronically signed by Manish Fu MD> 11/14/232018 [facility] Work Phone: 1([phone]) 878-809503-26-2024 Progress note Author Hood Zacarias [facility] November 14, 2023 1:34pmNote Date/TimeMarch 2023 1:34pmFine, [place] [address] Nephrology Progress Note Signed Patient: Nicole Lora MR#: [id number] [birth year] : 1960 Acct:[id number] Age/Sex: 63 / M Adm Date: Loc: Room: [address] [place] [address] Type: ADM IN Attending Dr: Manish Fu MD Copies to: ~ Date of Service: 11/14/2023 Subjective Subjective Narrative: This is a 63-year-old male with a medical history of CKD, DM, HTN, TC, COPD, CHF was transferred from [facility] for shortness of breath and hypercapnic respiratory failure. Patient was admitted at [facility] on September 2023 for COPD and CHF. During hospitalization he wasalso found to have AMY on CKD due to the cardiorenal syndrome. His renal function improved with diuresis. Patient was also found to have urine retentionand had Elliott catheter. Patient was readmitted at [facility] and his diuretic regimen was adjusted. His labs in ER showed AMY with serum creatinine 4.9 mg/dL and hyperkalemia with serum potassium 5.3 mmol/L and anion gap of 18. Patient ABG showed pH 7.25 pCO2 58 oxygen saturation 57. He was placed on BiPAP briefly. Patient on arrival at [facility] had ABG which showed pH 7.19, pCO2 65.9 pO2 90.9%. Patient has a CKD dueto the longstanding DM and HTN baseline creatinine around 1.5 to 1.9 g/ dL. Nephrology is consulted for AMY on CKD management. Interval history: Patient is up in the chair, he looks much better. He is more alert today. Blood pressure has improved up to 150s systolic. He still of torsemide. Renal function did improve with creatinine down to 1.9 mg/dL close to the baseline however potassium still on the high range ofnormal 5.3 mmol/L of torsemide. Hehas significant lower extremity edema in the setting of COPD on 6L/min nasal cannula. Exam Physical Exam Vital Signs: [...] Mg/2 Ml Ampul.Neb) 0.5 mg INHALATION BID COUNTS INCLUDE 234 BEDS AT THE [facility] Stop: 11/12/24 20:59 Last Admin: 11/14/23 07:35 Dose: 0.5 mg Dextrose (Dextrose 50% In Water 25 Gm/50 Ml Syringe) 0 gm IV-PUSH PRN PRN PRN Reason: Hypoglycemia Stop: 11/10/24 20:56 Duloxetine HCl (Duloxetine 60 Mg Capsule.Dr) 60 mg PO DAILY COUNTS INCLUDE 234 BEDS AT THE [facility] Stop: 11/13/24 08:59 Last Admin: 11/14/23 08:10 Dose: 60 mg Glucose (Dextrose 40% Gel 15 Gm Tube) 0 gm PO PRN PRN PRN Reason: Hypoglycemia Stop: 11/10/24 20:56 Last Admin: 11/12/23 17:38 Dose: 30 gm Guaifenesin (Guaifenesin 600 Mg Tab.Er.12h) 1,200 mg PO BID COUNTS INCLUDE 234 BEDS AT THE [facility] Stop: 11/12/24 20:59 Last Admin: 11/14/23 08:10 Dose: 1,200 mg Hydralazine HCl (Hydralazine 10 Mg Tablet) 10 mg PO BID COUNTS INCLUDE 234 BEDS AT THE [facility] Stop: 11/12/24 20:59 Last Admin: 11/14/23 08:10 Dose: 10 mg Ceftriaxone Sodium (Rocephin) 2 gm in 50 mls @ 100 mls/hr IV Q24H COUNTS INCLUDE 234 BEDS AT THE [facility] Stop: 11/15/23 08:29 Last Admin: 11/14/23 08:11 Dose: 100 mls/hr Insulin Aspart (Insulin Aspart 300 Units/3 Ml Insuln.Pen) 0 units SUBCUT TID.WM.HS COUNTS INCLUDE 234 BEDS AT THE [facility]; Protocol Stop: 11/10/24 21:59 Last Admin: 11/14/23 12:41 Dose: Not Given Insulin Glargine (Insulin Glargine 300 Units/3 Ml Insuln.Pen) 35 units SUBCUT QHS COUNTS INCLUDE 234 BEDS AT THE [facility] Stop: 11/10/24 21:59 Last Admin: 11/13/23 21:13 [...] 40 Mg Tablet.Dr) 40 mg PO DAILY COUNTS INCLUDE 234 BEDS AT THE [facility] Stop: 11/13/24 08:59 Last Admin: 11/14/23 08:10 [...] reviewed the report(s) and am incorporating any findingsin the treatment plan of this patient where [...] and monitor renal function and blood pressure. Patientis not a candidate for spironolactone at this point since potassium is elevated however could be considered if potassium drops below 4 mEq/L. Torsemide may need to be increase to 40 mg twice a day iftolerated. * Renal function is back to baseline. He may restart gabapentin and Jentadueto if needed to controlhis neuropathy and diabetes. * Patient is current on ceftriaxone. Urine culture from Elliott catheter showed Enterobacter Oblong complex and Kaelyn albicans. * Continue Elliott care for now. Will give a trial of void with bladder scan once renal function stabilizes diuretics. * Check renal function daily monitor input output Documented By: Hood Zacarias MD 11/14/23 4106 Signed By: <Electronically signed by MD Hood Zacarias> 11/14/[address] [facility] Work Phone: 1([phone]) 748-331203-25-2024 Progress note Author Manish Fu [facility] November 13, 2023 7:32pmNote Date/TimeMarch 2023 5:35pmFine[place] [address] Hospitalist Progress Note Signed with Addenda Patient: Nicole Lora MR#: [id number] [birth year] : 1960 Acct:[id number] Age/Sex: 63 / M Adm Date: 4 Loc: Room: [address] [place] [address] Type: ADM IN Attending Dr: Manish Fu [...] 08:00 11/13/23 10:00 11/13/23 10:11/13/23 10:00 Narrative: Narrative: General: Morbidly obese, middle-aged WM, resting in bed, awake, able to answer questions and followcommands HEENT: Mild pallor with no jaundice. Mucous [...] Insuln.Pen SUBCUT 11/10/24 21:59 Not Given TID.WM.HS COUNTS INCLUDE 234 BEDS AT THE [facility] Protocol Insulin Glargine 35 units 11/11/23 [...] of 4.63, creatinine has trended down to 3.26.Suspect post-obstructive etiology. Renal ultrasound did not demonstrate [...] bedside. Documented By: Manish Fu MD [id number] Signed By: <Electronically signed by Manish Fu MD> 11/13/[address] [facility] Work Phone: 1(356) 442-169003-25-2024 Progress note Author Hood Zacarias [facility] November 13, 2023 2:24pmNote Date/TimeMar2023 2:24pmFine, [place] [address] Nephrology Progress Note Signed Patient: Nicole Lora MR#: [id number] 29 : 1960 Acct:[id number] Age/Sex: 63 / M Adm Date: 4 Loc: Room: [address] [place] [address] Type: ADM IN Attending Dr: Manish Fu MD Copies to: ~ Date of Service: 11/13/2023 Subjective Subjective Narrative: This is a 63-year-old male with a medical history of CKD, DM, HTN, TC, COPD, CHF was transferred from [facility] for shortness of breath and hypercapnic respiratory failure. Patient was admitted at [facility] on September 2023 for COPD and CHF. During hospitalization he wasalso found to have AMY on CKD due to the cardiorenal syndrome. His renal function improved with diuresis. Patient was also found to have urine retentionand had Elliott catheter. Patient was readmitted at [facility] and his diuretic regimen was adjusted. His labs in ER showed AMY with serum creatinine 4.9 mg/dL and hyperkalemia with serum potassium 5.3 mmol/L and anion gap of 18. Patient ABG showed pH 7.25 pCO2 58 oxygen saturation 57. He was placed on BiPAP briefly. Patient on arrival at [facility] had ABG which showed pH 7.19, pCO2 65.9 pO2 90.9%. Patient has a CKD dueto the longstanding DM and HTN baseline creatinine around 1.5 to 1.9 g/ dL. Nephrology is consulted for AMY on CKD [...] 50 mls @ 100 mls/hr IV Q24H COUNTS INCLUDE 234 BEDS AT THE [facility] Stop: 11/15/23 08:29 Last Admin: 11/13/23 09:17 Dose: 100 mls/hr Insulin Aspart (Insulin Aspart 300 Units/3 Ml Insuln.Pen) 0 units SUBCUT TID.WM.[facility]; Protocol Stop: 11/10/24 21:59 Last Admin: 11/13/23 14:08 Dose: Not Given Insulin Glargine (Insulin Glargine 300 Units/3 Ml Insuln.Pen) 35 units SUBCUT QHS COUNTS INCLUDE 234 BEDS AT THE [facility] Stop: 11/10/24 21:59 Last Admin: 11/12/23 21:43 [...] Migue Wild M.D.11/12/2023 2:47 PM Dictation Location: [place] [address] Any impression(s) listed above is documentation that was entered by the reading physician into a diagnostic report(s) for Nicole Lora. I have reviewed the report(s) and am incorporating any findingsin the treatment plan of this patient where [...] Urine culture from Elliott catheter showed Enterobacter Oblong complex and Kaelyn albicans. * Continue DM management as per the primary hospitalist team. The goal of blood sugar is 100 to 150mg/dL. * Continue Elliott care. * Check renal function daily monitor input output Documented By: Hood Zacarias MD 11/13/23 141 Signed By: <Electronically signed by MD Hood Zacarias> 11/13/[address] [facility] Work Phone: 1(761) 256-584303-24-2024 Progress note Author Durga Loza [facility] November 12, 2023 1:45pmNote Date/TimeMarch 2023 1:45pmFine, [place] [address] Hospitalist Progress Note Signed Patient: Nicole Lora MR#: [id number] 29 : 1960 Acct:[id number] Age/Sex: 63 / M Adm Date: 4 Loc: 4 Room: [address] [place] [address] Type: ADM IN Attending Dr: Durga Loza [...] was arousable and talking in right sentences. [facility] computer system was downsocx-ray of the chest and renal ultrasound could not be performed yet. ON ADMISSION: Mr Lora is a 63-year-old male with past medical history of CKD stage III, diabetes type 2, TC, COPD, CHF with preserved ejection fraction [facility] for chief complaint of shortness of breath and CO2 retention. I spoke with the daughter upon arrival to our hospital, the cousin Arely went to check on him this morning and stated he was not wearing his oxygen was on the floor, it is unsure how long theoxygen was not on as the nasal cannulawas found underneath the recliner, to theknowledge it [...] who says that the patientwas admitted to [facility] roughly 1 week later after discharge from our facility and there was some adjustments to his diuretic therapy howevershe is not sure what the new medication was, medication list received from [facility] emergency room note shows Lasix 40 mg in the morning and 20 mg at night howeverthis is from September 16 and not his [...] leaking at home for a while. At [facility] he did receive 2 L of IV fluids and then subsequently transferred here for a nephrologyconsult. His labs at [facility] were notable for BUN of [...] Daughter, Davin she can be reached at [phone] Documented By: Durga Loza MD 11/12/231341 Signed By: <Electronically signed by Durga Loza MD> 11/12/[address] [facility] Work Phone: 1([phone]) 304-422303-24-2024 Consult note Author Bladimir Story [facility] November 12, 2023 11:53amNote Date/TimeMarch 2023 11:31[place] [address] Nephrology Consult Note Signed Patient: Nicole Lora MR#: [id number] 29 : 1960 Acct:[id number] Age/Sex: 63 / M Adm Date: 4 Loc: Room: [address] [place] [address] Type: ADM IN Attending Dr: Durga Loza MD Copies to: MD Mounika Limon MD, MD~ Providers Consult Date: 11/12/23 Requesting Provider: Durga Loza MD Primary Care Provider: Mounika Brooke MD HPI Reason for Consult: AMY on CKD History of Present Illness: This is a 63-year-old male with a medical history of CKD, DM, HTN, TC, COPD, CHF was transferred from [facility] for shortness of breath and hypercapnic respiratory failure. Patient was admitted at [facility] 2023 for COPD and CHF. During hospitalizationhe was also found to have AMY on CKD due to the cardiorenal syndrome. His renal function improved with diuresis. Patient was also found to have urine retentionand had Elliott catheter. Patient was readmitted at [facility] and his diuretic regimen was adjusted. His labs in ER showed MAY with serum creatinine 4.9 mg/dL and hyperkalemia with serum potassium 4.3 mmol/L and aniongap of 18. Patient ABG showed pH 7.25 pCO2 58 oxygen saturation 57. He was placed on BiPAP briefly.Patient on arrival at [facility] had ABG which showed pH 7.19, pCO2 65.9 pO290.9%. Patient has a CKD dueto the longstanding DM and HTN baseline creatinine around 1.5 to 1.9 g/d L. Nephrology is consulted for AMY on CKD [...] denies any itching or rash [facility] Medical History (Updated 11/12/23 @ 11:27 by [...] pen (Toujeo Max U- 300 SoloStar) 35 unit(0.1167 mL) subcut BID #3 mL 06/21/23 [Rx [...] 5,000 Unit/Ml Vial) 5,000 unit SUBCUT Q8HR COUNTS INCLUDE 234 BEDS AT THE [facility] Stop: 11/10/24 21:59 Last Admin: 11/12/23 07:27 Dose: Not Given Ceftriaxone Sodium (Rocephin) 2 gm in 50 mls @ 100 mls/hr IV Q24H COUNTS INCLUDE 234 BEDS AT THE [facility] Stop: 11/15/23 08:29 Last Admin: 11/12/23 10:17 Dose: 100 mls/hr Insulin Aspart (Insulin Aspart 300 Units/3 Ml Insuln.Pen) 0 units SUBCUT TID.WM.HS COUNTS INCLUDE 234 BEDS AT THE [facility]; Protocol Stop: 11/10/24 21:59 Last Admin: 11/12/23 10:16 Dose: 2 units Insulin Aspart (Insulin Aspart 300 Units/3 Ml Insuln.Pen) 12 units 0.083 units/kg (12 units) SUBCUTTID.AC COUNTS INCLUDE 234 BEDS AT THE [facility] Stop: 11/11/24 07:29 Last Admin: 11/12/23 10:16 Dose: 12 units Insulin Glargine (Insulin Glargine 300 Units/3 Ml Insuln.Pen) 35 units SUBCUT QHS COUNTS INCLUDE 234 BEDS AT THE [facility] Stop: 11/10/24 21:59 Last Admin: 11/11/23 22:51 [...] 8.6 Mg Tablet) 1 tab PO BID COUNTS INCLUDE 234 BEDS AT THE [facility] Stop: 11/10/24 20:59 Last Admin: 11/12/23 10:16 [...] Skin: No rashes , warm to touch MATCHING MACHINE OPERATOR: Awake,Alert, following simple command Musculoskeletal: No swelling or limitation of movement of the large joints Psychiatric: Cooperative, normal mood and affect Results - Nephrology Labs 11/12/23 04:54 11/12/23 04:54 Labs: 11/11/23 11/11/23 11/12/23 19:27 22:20 04:54 BUN 78 H 80 H Creatinine 4.63 H 4.44 H Albumin 3.4 L Urine Color [place] A Urine Appearance Turbid A Urine pH 5.0 Ur Specific [place] 1.017 Urine Protein 100 H Urine Glucose [...] reviewed the report(s) and am incorporating any findingsin the treatment plan of this patient where [...] goal of blood sugar is 100 to 150mg/dL. * Continue Elliott care. * Check renal function daily monitor input output * Thanks for consult. Will continue follow with you. Please feel free to call us with any question. * Documented By: Bladimir Story MD 11/12/23 1121 Signed By: <Electronically signed by Bladimir Story MD> 11/12/[address] [facility] Work Phone: 1(422) 585-707203-23-2024 History and physical note Author Tera Nevarez [facility] November 11, 2023 9:06pmNote Date/TimeMarch 2023 8:03pmFine[place] [address] Hospitalist H&P Signed with Addosvaldo Patient: Nicole Lora MR#: [id number] 29 : 1960 Acct:[id number] Age/Sex: 63 / M Adm Date: 4 Loc: Room: [address] [place] [address] Type: ADM IN Attending Dr: Tera Nevarez [...] hypercapnia however his baseline CO2 is likely 50-60and an ABG from May in our system shows normal pH with the same CO2 but with elevated bicarb. Ihave suspicion that his current acidemia is metabolic [...] theoxygen was not on as the nasal cannulawas found underneath the recliner, to theknowledge it [...] who says that the patientwas admitted to [facility] roughly 1 week later after discharge from our facility and there was some adjustments to his diuretic therapy howevershe is not sure what the new medication was, medication list received from [facility] note shows Lasix 40 mg in the morning and 20 mg at night howeverthis is from September 16 and not his [...] leaking at home for a while. At [facility] he did receive 2 L of IV fluids and then subsequently transferred here for a nephrologyconsult. His labs at [facility] were notable for BUN of [...] noted below or in HPI [facility] Medical History (Updated 11/11/23 @ 20:47 by [...] pen (Toujeo Max U- 300 SoloStar) 35 unit(0.1167 mL) subcut BID #3 mL 06/21/23 [Rx [...] any palpation on his calfs, he has notoes on the left foot, there is an [...] (4.1-10.5) 11/11/23 19:27 RBC 4.57 X10E6/uL (3.90-5.60) 11/11/23: Hgb 12.0 g/dL (13.0-17.0) L 11/11/23: Hct 38.8 % (38.8-50.0) 11/11/23: MCV 84.9 fl (83.5-101) 11/11/23: MCH 26.2 pg (27.5-35.2) L 11/11/23: MCHC 30.9 g/dL (32.5-35.6) L 11/11/23: RDW 18.9 % (12.0-14.8) H 11/11/23 Plt Count 237 x10E3/uL (150-450) 11/11/23 MPV 7.0 fl (6.6-10.1) 11/11/23: Neut % (Auto) 73.6 % (.) 11/11/23: Lymph % (Auto) 14.5 % (.) 11/11/23: [place] % (Auto) 9.1 % (.) 11/11/23: Eos % (Auto) 2.1 % (.) 11/11/23 Baso % (Auto) 0.7 % (.) 11/11/23 Nucleat RBC Rel Count 0.1 /100 WBC (0-0.5) 11/11/23 Neut # (Auto) 5.4 x10E3/uL (1.8-7.7) 11/11/23 Lymph # (Auto) 1.1 x10E3/uL (1.00-4.8) 11/11/23: [place] # (Auto) 0.7 x10E3/uL (0.0-0.8) 11/11/23 Eos # (Auto) 0.2 x10E3/uL (0.0-0.45) 11/11/23 Baso # (Auto) 0.0 x10E3/uL (0.0-0.2) 11/11/23 Lactic Acid 0.8 mmol/L (0.5-2.2) 03/23/24 19:27 Assessment & Plan Assessment/Plan (1) Acute [...] daughter, Davin she can be reached at [phone] IP vs OBS Justification Based on differential dx, clinical care plan, and risk of adverse events, if untreated, in my clinical judgement this patient requires an acute care setting as: INPATIENT because of an expectation ofan over 2 midnight stay. Estimated length of stay (# of days): 3 Documented By: Tera Nevarez DO 11/11/232000 Signed By: <Electronically signed by Tera Nevarez DO> 11/11/232052 [facility] Work Phone: [phone]) 230-470003-23-2024 Evaluation + Plan noteExtracted from:Title: ED NoteAuthor:Paddy Betancourt PA-CDate:11/11/23 Acute respiratory failure (J 96.00: Acute respiratory [...] 1,000 mg = 1 EA, IV Piggyback, Once,Stop date 11/11/23 10:19:00 EDT, STAT, Start date [...] mL, Soln-IV, IV, Once, Stop date 11/11/23 12:33:00EDT, STAT, Start date 11/11/23 12:33:00 EDT, Infuse [...] Appointments Appointment Date:11/16/2023 09:00:00 AM Scheduled Provider: Location:[facility] Appointment Type:Urology CALL PAT FT Appointment Date:11/20/2023 12:00:00 PM Scheduled Provider: Location:[facility] Appointment Type:Urology FT Appointment Date:11/20/2023 01:15:00 PM Scheduled Provider: Location:[facility] Appointment Type:Urology FT Diagnostic Tests Pending * Blood Culture Charcoal 11/11/23 * Blood Culture Charcoal 11/11/23 * Urine Culture 11/11/23 Future Scheduled Tests Radiology* XR Chest 2 Views 05/15/23 * XR Chest 2 Views 05/15/23 [facility]03-11-2024 Evaluation + Plan noteExtracted from: Title:ED NoteAuthor:Staci Beck DO ADate:10/30/23 Complication of Elliott cathet er (T83.9XXA: Unspecified complication of genitourinary prosthetic device, implant and graft, initial encounter) Future Appointments Appointment Date:11/01/2023 02:00:00 PM Scheduled Provider: Location:[facility] Appointment Type:URO Nurse Visit Appointment Date:11/16/2023 09:00:00 AM Scheduled Provider: Location:[facility] Surgical Services Appointment Type:Urology CALL PAT FT Appointment Date:11/20/2023 12:00:00 PM Scheduled Provider: Location:[facility] Appointment Type:Urology FT Appointment Date:11/20/2023 01:15:00 PM Scheduled Provider: Location:[facility] Surgical [facility] Appointment Type:Urology FT Future Scheduled Tests Radiology* XR Chest 2 Views 05/15/23 * XR Chest 2 Views 05/15/23 [facility]03-11-2024 Hospital Discharge instructions Patient Education 10/30/2023 05:35:44 [...] bag. Secure the leg bag according to elementary school director's instructions. This may be above or [...] on each side. Do this in a vqajl-qj-bqca direction. ?If you are male: ?Use one [...] Clean the drainage bag according to the elementary school director's instructions or as told byyour health [...] and water are not available, use hand asphalt paving foreman. Always make sure there are no twists, [...] provider. Document Revised: 04/07/2022 Document Reviewed: 04/07/2022 [employer] Patient Education 2022 [employer] Follow Up Care 10/30/2023 05:10:48 With:Taz THOMAS Address: [address] [id number] Business (1) When:11/02/2023 05:21:06 Comments:Follow-up with urology for further evaluation and management. Please return to the ED for any new or worsening symptoms. With:REID BROOKE Address: [address] [facility] [place] [address] [id number] Business (1) When:Within 3 Day(s) [facility]03-09-2024 NoteHNO ID: [id number] Author: JOHN SPANN RN Service: ? Author Type: Registered Nurse Type: Progress Notes Filed: 10/28/2023 13:45 Note Text: Patient given discharge instructions and printed AVS summary. Medications reviewed in detail including next dose due, indication, and side effects. CHF management including symptoms to report reviewed. All questions answered. IV access discontinued, heart monitor off, and valuables packed by patient. INFERTILITY NURSE medications with patient. Awaiting daughter to transport patient home.[facility] HospitalFtygskpw90-19-0929 NoteHNO ID: [id number] Author: GÓMEZ OLIVA LSW Service: Care Management Author Type: Power System Electrical Engineer Type: Care Mgt Progress Note Filed: 10/28/2023 12:15 Note Text: CARE MANAGEMENT DISCHARGE NOTE SERVICE DATE: October 28, 2023 SERVICE TIME: 12:14 PM Admission Date: 10/23/2023 LOS: 4 days Discharge Arrangement Discharge Arrangement: Home with Home Health Services Arranged Medical Services: Skilled Home Health Care Type: Mcfp, Physical Therapy, Occupational Therapy Caregiver Assessment Caregiver is ready, willing and able to meet the patient's needs as recommended by the inter-professional team: Yes Name of Caregiver: [facility] Transportation Arrangements Transportation Arrangements: Car Handoff Communication: Additional Information: Discharge Information Row Name ED to Hosp-Admission (Current) from 10/23/[address] Home Health Care Agency [facility] Patient will be d/c home with HHC from [facility] with a SOC date in 24 to 48 hours. Patient will transported home via family auto. SIGNATURE: JACK Poasda PATIENT NAME: Nicole Lora DATE: October 28, 2023 TIME: 12:14 PM CONTACT #: [phone] [id number] History of Past illness Narrative* ProblemNoted DateDiagnosed DateResolved DateAcute on chronic respiratory failure with /09/2024 Last Assessment & Plan: See fluid overload documented as of this encounter (statuses as of 10/31/2023) [facility]03-09-2024 History of Past illness Narrative* ProblemNoted Date Diagnosed DateResolved DateAcute on chronic respiratory failure with hypoxemia 10/28/2023 Last Assessment & Plan: See fluid overload documented as of this encounter (statuses as of 11/22/2023) [facility]03-09-2024 History of Past illness Narrative* ProblemNoted Date Diagnosed DateResolved DateAcute on chronic respiratory failure with hypoxemia 10/28/2023 Last Assessment & Plan: See fluid overload documented as of this encounter (statuses as of 11/29/2023) [facility]03-09-2024 NoteHNO ID: [id number] Author: NAUN COUCH MD Service: Nephrology Author [...] at 10/28/2023 0837 Last data filed at 10/27/2023 2020 Gross per 24 hour Intake -- Output 2500 ml Net -2500 ml Chest: Clear to auscultation bilaterally. Heart: RRR, normal S1 and S2. No murmurs, galop or rubs. Abdomen: Soft lax, no tenderness or rebound tenderness, no hepatosplenomegaly, BS +. Lower limbs: +1 edema, distal pulses were palpable. MATCHING MACHINE OPERATOR: Conscious, Alert AND Orientedx3, fluent speech, intact concentration, no focal motor deficit is seen. DATA: Diagnostic tests reviewed for today's visit: CBC, Coags, BMP, Mg, Phos Recent Labs 10/28/2344110/27/2318 10/26/23 0601 WBC 5.94 5.87 6.49 HB [...] Liver Function, Amylase, AND Lipase Recent Labs 10/28/2344110/27/2351710/26/23 0601 TPROT -- 6.3 -- ALB 3.3* [...] amputation admitted from home who presented to [facility] with complaints of worsening shortness of breath, bilateral lower extremity edema and ~ 10lb weight gain in the last few weeks. Patient reports multiple hospital admissions in 2023 at [facility] in [place] for fluid overload. He states he usually [...] daily - trending alkalosis Given diamox -HTN INFERTILITY NURSE Hydralazine 75 mg q12 hours -> decreased to 10 mg TID Isordil on hold, Continue to trend Can be discharged from nephrology standpoint Re-educated patient on fluid restriction, daily weight Follow up in office in 2-3 weeks Plan of care discussed with: Provider, RN, Patient Naun Couch MD [facility] October 28, 2023 8:37 AM [phone] [id number] NoteHNO ID: [id number] Author: NOTE, INTERFACE, ? Service: ? Author Type: ? Type: Progress Notes Filed: 10/28/2023 03:39 Note Text: Epic Scheduled Downtime: 10/28/2023 1:00:00 AM to 10/28/2023 3:24:00 [facility]03-08-2024 NoteHNO ID: [id number] Author: GÓMEZ OLIVA LSW Service: Care Management Author Type: Power System Electrical Engineer Type: Care Mgt Progress Note Filed: 10/27/2023 13:20 Note Text: CARE MANAGEMENT PROGRESS NOTE SERVICE DATE: 10/27/2023 SERVICE TIME: 1:17 PM LOS: 3 days Needs Prior to Discharge: To Be Determined Consults: - Pulmonology - Cardiology Medical Needs: - IV lasix Transportation: - Family D/C Disposition: Once cleared by consults and attending physician, patient will be d/c back home. Patient is active with [facility] for PT/OT/SN provided to agency. Plan for patient's daughter or niece to transport. Please contact this SW over the weekend for d/c planning as needed. SIGNATURE: JACK Posada PATIENT NAME: Nicole Lora DATE: October 27, 2023 TIME: 1:17 PM PAGER/CONTACT #: [phone] [id number] NoteHNO ID: [id number] Author: TAY STEWART MD Service: General Internal [...] -- -- 74 19 95 % 10/26/23 195 139/62 37.1 ?C (98.8 ?F) Oral 75 [...] for today's visit: @IMAGES@ CBC: Recent Labs 10/27/23 0518 WBC 5.87 RBC 4.49 HB 12.0* HCT 39.9 PLT 222 MCV 88.9 MCH 26.7 MPV 8.7* Coags: No results for input(s): PT , INR , APTT in the last 24 hours. BMP: Recent Labs 10/27/23 0518 NA 144 K 4.1 CHLOR 100 CO2 35* BUN 40* CREAT 1.62* GLUC 145* CMP: Recent Labs 10/27/23 0518 NA 144 K 4.1 CHLOR 100 CO2 35* BUN 40* CREAT 1.62* GLUC 145* TPROT 6.3 CA 9.1 MG (more content not included)...[facility] HospitalDooysruj51-60-8276 NoteHNO ID: [id number] Author: JUSTINO MARTÍNEZ, RN Service: Nursing Author Type: Registered Nurse Type: Nursing Progress Note Filed: 10/27/2023 03:59 Note Text: Patient's daughter called. She would like the team to call her with updates. [facility] HospitalNgthdmnc76-08-1171 NoteHNO ID: [id number] Author: DELLA MADDOX RN Service: Care Management Author Type: Registered Nurse Type: Care Mgt Progress Note Filed: 10/26/2023 18:23 Note Text: CARE MANAGEMENT PROGRESS NOTE SERVICE DATE: 10/26/2023 SERVICE TIME: 6:16 PM LOS: 2 days Post-Acute Discharge Planning Patient Goal(s): General wellness [place] of Choice Explained: [place] of Choice Given: Yes Level of Care [...] not know which agency. [facility]looks like pt is active with [facility] [phone] per [facility]-referral sent to confirm/resume. May NEED NEW [...] 26, 2023 TIME: 6:15 PM PAGER/CONTACT #: [phone] [id number] NoteHNO ID: [id number] Author: VALERIE LINDSEY APRN.CNP Service: General Internal Medicine Author Type: Nurse Practitioner Type: Plan of Care Filed: 10/26/2023 15:36 Note Text: INTERNAL MEDICINE PLAN OF CARE SERVICE DATE: 10/26/2023 SERVICE TIME: 10 am ADMITTING PHYSICIAN: Tay Stewart MD Subjective CHIEF COMPLAINT: Fluid Overload NIGHT AND WEEKEND COVERAGE: READING COVERAGE: HOUSE PAGER [phone] INTERVAL HISTORY OF PRESENT ILLNESS: Pt seen and examined on [facility] no apparent distress oob in chair. On was moved from the MICU to [facility] yesterday evening . CONSULTANTS: Cardiology, nephrology , Pulmonary consulted today HOSPITAL COURSE: This is a 63 year old male with a PMHx of CKD 3b, chronic respiratory failure, morbid obesity, insulin dependent diabetes, left forefoot amputation admitted from home, lives in [place] for fluid overload. The patient states he's [...] consulted . Patient transferred from ED to [facility] where he has RR 2/2 acute [...] Drains, and Airways Line Duration Peripheral 10/23/23 5341 [facility] Short Right Antecubital 20 Gauge 2 days Drain Duration Indwelling Urinary Catheter External Facility Coude 18 Fr -- days ASSESSMENT/PLAN: * Fluid overload- (present (more content not included)...[facility] 10-26-2023 NoteHNO ID: [id number] Author: TAY STEWART MD Service: General Internal [...] today's visit: @IMAGES@ CBC: Recent Labs 10/26/23 0601 WBC 6.49 RBC 4.30 HB 11.6* HCT 38.8* PLT 247 MCV 90.2 MCH 27.0 MPV 9.0 Coags: No results for input(s): PT , INR , APTT in the last 24 hours. BMP: Recent Labs 10/26/23 0601 NA 146* K 4.3 CHLOR 101 CO2 30 BUN 48* CREAT 1.84* GLUC 189* CMP: Recent Labs 10/26/23 0601 NA 146* K 4.3 CHLOR 101 CO2 30 BUN 48* CREAT 1.84* GLUC 189* CA 9.1 MG 2.1 ANION 15 Cardiac Enzymes: No results for input(s): CK , MB , CKMB , TROPT in the last 24 hours. Liver Function, Amylase, Lipase: Recent Labs 10/26/23 0601 ALB 3.3* Plan of care discussed with patient and staff. I spent a total of 40 minutes on the date of the service which included preparing to see the patient, sxum-fb-gxuh patient ca (more content not included)...[facility] 10-25-2023 NoteHNO ID: [id number] Author: NAUN COUCH MD Service: Nephrology Author [...] limbs: +3 edema, distal pulses were palpable. MATCHING MACHINE OPERATOR: Conscious, Alert AND Orientedx3, fluent speech, intact [...] amputation admitted from home who presented to [facility] with complaints of worsening shortness of breath, bilateral lower extremity edema and ~ 10lb weight gain in the last few weeks. Patient reports multiple hospital admissions in 2023 at [facility] in [place] for fluid overload. He states he usually [...] mg TID More stable, feeling better -HTN INFERTILITY NURSE Hydralazine 75 mg q12 hours -> decrease to 10 mg TID On Isordil 10 mg TID Continue to trend Plan of care discussed with: Provider, RN, Patient Naun Couch MD [facility] October 25, 2023 4:27 PM [phone] [id number] NoteHNO ID: [id number] Author: NERY MOTTA MD Service: Cardiovascular Medicine Author Type: Physician Type: Progress Notes Filed: 10/25/2023 17:13 Note Text: [facility] PROGRESS NOTE CONSULTING SERVICE: Cardiology: Consult Team PRIMARY SERVICE: Internal Medicine Subjective: -SOB Objective: Physical Exam 10/25/23 0900 10/25/23 1000 10/25/23 1100 10/25/23 1200 BP: 115/51 125/59 (!) 108/49 Pulse: 80 74 71 Resp: 17 14 Temp: 36.9 ?C (98.4 ?F) [...] Motta MD DATE of SERVICE: October 25, 2023[facility] HospitalEqhjlyiy17-32-1485 NoteHNO ID: [id number] Author: MAE KENNY MD Service: Critical Care [...] 1.3 mL in (more content not included)... [place] [id number] NoteHNO ID: [id number] Author: SRUTHI EGAN PA-C Service: General Internal Medicine Author Type: Physician Liner Worker Type: Plan of Care Filed: 10/24/2023 23:16 Note Text: Brief Plan of Care Paged by RN regarding ABG results. Respiratory acidosis with pCO2 70. VBG this am with respiratory acidosis with pCO2 of 66. Patient seen and chart reviewed. Patient here for fluid overload. Received 40 mg IV lasix at 043, 1445, 1604 today. Next dose 2099. CXR with Patchy linear nodular opacity near [...] Addendum: 2312: Called ICU on-call doc at 2140 and paged at 2220. [place] back at 0 with recs to transfer to ICU for bipap initiation. Plan discussed with RN. Patient currently asleep in chair. 90% on 5L O2 NC. Transfer order placed. Sruthi Egan PA-C 10/24/2023 11:15 [facility]03-05-2024 NoteHNO ID: [id number] Author: ELKE ORO RT(R) Service: ? Author Type: Appointment Coordinator Type: Progress Notes Filed: 10/24/2023 14:26 Note [...] PATIENT PRESENTS WITH AN IMPLANTABLE OR ATTACHED BLOWER ROOM ATTENDANT: No CREATININE: Creatinine Date Value Ref Range [...] October 24, 2023 TIME: 2:25 PM PAGER/CONTACT #:Jayme [id number] Hospital Discharge instructions Patient Education 10/18/2023 09:14:11 [...] Follow these instructions at home: Medicines Take xqfq-jei-pkvpjmf and prescription medicines only as told by [...] provider. Document Revised: 04/28/2021 Document Reviewed: 04/28/2021 [employer] Patient Education 2022 [employer] Follow Up Care 09/19/2023 09:41:35 With:Taz THOMAS MD, URL Address: [address] [place] [address] [place], [place] [id number]- When: Unknown [facility] 02-25-2024 Evaluation + Plan noteExtracted from:Title: ED NoteAuthor:Juan MOFFETT Mone BrittneySueDate:10/15/23 Urinary catheter complicatio n (T83.9XXA: Unspecified complication of genitourinary prosthetic device, implant and graft, initial encounter) Future Appointments Appointment Date:10/18/2023 09:00:00 AM Scheduled Provider:Taz THOMAS MD Location:[facility] Appointment Type:URO New Patient Appointment Date:10/18/2023 09:15:00 AM Scheduled Provider:Sukh Harrington DPM [facility] Appointment Type:WC Follow Up Visit (FT) Appointment Date:11/01/2023 02:00:00 PM Scheduled Provider: Location:[facility] Appointment Type:URO Nurse Visit Appointment Date:11/16/2023 09:00:00 AM Scheduled Provider: Location:[facility] Surgical Services Appointment Type:Urology CALL PAT FT Appointment Date:11/20/2023 01:15:00 PM Scheduled Provider: Location:[facility] Appointment Type:Urology FT Future Scheduled Tests Radiology* XR Chest 2 Views 05/15/23 * XR Chest 2 Views 05/15/23 [facility]02-25-2024 Hospital Discharge instructions Patient Education 10/15/2023 06:54:02 Elliott Catheter Care, Male-[facility] (Custom) Elliott Catheter Care, Male A Elliott [...] cotton underwear to absorb moisture and keep soda drier feeder. 6. Keep the drainage bag below [...] 10/15/2023 06:04:22 With:REID BROOKE Address: [address] [address]- Business (1) When:10/18/2023 06:53:53 Comments:Call the office [...] you develop any new or worsening symptoms. [facility]02-22-2024 Progress note Author Gigi Cooper [facility] October 12, 2023 12:38pmNote Date/TimeFebruary 2023 12:38pm[place] [address] Nephrology Progress Note Signed Patient: Nicole Lora MR#: [id number] [birth year] : 1960 Acct:[id number] Age/Sex: 63 / M Adm Date: 4 Loc: Room: [address] [place] [address] Type: ADM IN Attending Dr: Yesi Murphy [...] Patient said he has been compliant with low-salt diet and with his home diuretics. Patient [...] at admission and started on DuoNeb and Solu- Medrol. Patient was also given 1 dose of Lokelma for hyperkalemia .patient was admitted for COPD/CHF exacerbation. Patient was placed on Lasix 40 mg twice daily and acetazolamide 500 mg IV daily patient metolazone5 mg x1. Serum creatinine this morning 1.5 [...] holding Lasix. Kidney function slightly better. Serum creatininedown to 1.9 mg deciliter. Patient continues to [...] / 460 300 / 300 Output Total 54940 / 63205 3600 / 3600 4050 / 4050 900 [...] 40 Mg Tablet) 40 mg PO DAILY COUNTS INCLUDE 234 BEDS AT THE [facility] Stop: 10/09/24 08:59 Last Admin: 10/12/23 08:27 Dose: 40 mg Budesonide/Formoterol Fumarate (Budesonide/Formoterol 160-4.5 Mcg 60 Puff/6 Gm Hfa.Aer.Ad) 2 puff INHALATION Q12HR.10A.10P COUNTS INCLUDE 234 BEDS AT THE [facility] Stop: 10/08/24 21:59 Last Admin: 10/12/23 09:05 Dose: 2 puff Dextrose (Dextrose 50% In Water 25 Gm/50 Ml Syringe) 0 gm IV-PUSH PRN PRN PRN Reason: Hypoglycemia Stop: 10/06/24 02:05 Furosemide (Furosemide 40 Mg/4 Ml Vial) 40 mg IV-PUSH BID@0800,1600 COUNTS INCLUDE 234 BEDS AT THE [facility] Stop: 10/06/24 07:59 Last Admin: 10/11/23 08:01 Dose: 40 mg Gabapentin (Gabapentin 600 Mg Tablet) 600 mg PO BID COUNTS INCLUDE 234 BEDS AT THE [facility] Stop: 10/06/24 11:59 Last Admin: 10/12/23 08:27 Dose: 600 mg Glucose (Dextrose 40% Gel 15 Gm Tube) 0 gm PO PRN PRN PRN Reason: Hypoglycemia Stop: 10/06/24 02:05 Heparin Sodium (Porcine) (Heparin 5,000 Unit/Ml Vial) 5,000 unit SUBCUT Q8HR JIMMIE Stop: 10/06/24 05:59 Last Admin: 10/12/23 04:59 Dose: 5,000 unit Hydralazine HCl (Hydralazine 50 Mg Tablet) 50 mg PO BID COUNTS INCLUDE 234 BEDS AT THE [facility] Stop: 10/08/24 08:59 Last Admin: 10/12/23 08:27 Dose: 50 mg Insulin Aspart (Insulin Aspart 300 Units/3 Ml Insuln.Pen) 0 units SUBCUT TID.WM.HS COUNTS INCLUDE 234 BEDS AT THE [facility]; Protocol Stop: 10/06/24 07:59 Last Admin: 10/12/23 11:57 Dose: 4 units Insulin Glargine (Insulin Glargine 300 Units/3 Ml Insuln.Pen) 20 units SUBCUT BID COUNTS INCLUDE 234 BEDS AT THE [facility] Stop: 10/07/24 20:59 Last Admin: 10/12/23 08:28 [...] 40 Mg Tablet.Dr) 40 mg PO DAILY COUNTS INCLUDE 234 BEDS AT THE [facility] Stop: 10/09/24 08:59 Last Admin: 10/12/23 08:27 Dose: 40 mg Ropinirole HCl (Ropinirole 1 Mg Tablet) 1 mg PO QHS COUNTS INCLUDE 234 BEDS AT THE [facility] Stop: 10/08/24 21:59 Last Admin: 10/11/23 21:36 Dose: 1 mg Sodium Chloride (Sodium Chloride 0.9 % 10 Ml Syringe) 0 ml IV-PUSH PRN PRN PRN Reason: Flush Stop: 10/05/24 20:20 Last Admin: 10/08/23 16:49 Dose: 10 ml Sodium Chloride (Sodium Chloride 0.9 % 10 Ml Syringe) 0 ml IV-PUSH QSHIFT COUNTS INCLUDE 234 BEDS AT THE [facility] Stop: 10/06/24 05:59 Last Admin: 10/12/23 04:59 Dose: 10 ml Tamsulosin HCl (Tamsulosin 0.4 Mg Cap.Er.24h) 0.4 mg PO DAILY COUNTS INCLUDE 234 BEDS AT THE [facility] Stop: 10/09/24 08:59 Last Admin: 10/12/23 08:27 [...] reviewed the report(s) and am incorporating any findingsin the treatment plan of this patient where [...] Baseline serum creatinine around 1.5 mg deciliter. UArevealed 100 protein (3) Hyperkalemia: Plan: Patient presented [...] standpoint. Patient can be dischargedwith torsemide 40 mgp.o. daily. Check renal function panel next week. Patientscheduled the patient to follow with nephrology clinic in 2 to 3 weeks after hospital discharge Renal team will continue to follow. Call if any question or concern Documented By: Gigi Cooper MD 10/12/23 1236 Signed By: <Electronically signed by Gigi Cooper MD> 10/12/[address] [facility] Work Phone: 1(488) 989-643002-22-2024 Discharge summary Author Yesi Murphy [facility] October 12, 2023 1:36pmNote Date/TimeFebruary 2023 10:24[place] [id number] Discharge Summary Signed Patient: Nicole Lora MR#: [id number] [birth year] : 1960 Acct:[id number] Age/Sex: 63 / M Adm Date: 4 Loc: Room: [address] [place] [address]: Yesi Murphy MD Copies to: [...] during his hospitalization. Significant diuresis was continued througouthis stay with a cumulative -19795 ml during his stay. He did have AMY on CKD3 which was monitored daily with BMP and was followed by nephrology team. He did develophyperkalemia during his stay which he received Lokelma x1 for and resolved afterthat. His other home medications for chronic conditionswere continued during his hospitalization. Of note, patient did refuse telemetry and pulled out hisIVon morning of discharge. His lower extremity edema, [...] chart, the team's documentation, and discussed the patientcare with the team. I agree with the [...] Plan Discharge Plan Patient Disposition: [facility] Activity: No Activity [...] gauze. Secure with Kerlix and paper tape. Changedaily and as needed. - Maintain indwelling elliott [...] Patient Ordered By: Yesi Murphy Follow Up: [facility] [place] [Outside] - 10/24/23 10:40 [...] signed by Yesi Murphy MD> 10/12/23 1336 [facility] Work Phone: 1(897) 785-728202-21-2024 Progress note Author Gigi Cooper [facility] October 11, 2023 12:27pmNote Date/TimeFebruary 2023 12:27pmFine[place] [address] Nephrology Progress Note Signed Patient: Nicole Lora MR#: [id number] [birth year] : 1960 Acct:[id number] Age/Sex: 63 / M Adm Date: 4 Loc: Room: [address] [place] [address] Type: ADM IN Attending Dr: Yesi Murphy [...] Patient said he has been compliant with low-salt diet and with his home diuretics. Patient [...] and acetazolamide 500 mg IV daily patient metolazone5 mg x1. Serum creatinine this morning 1.5 [...] / 100 Output Total 3475 / 3475 36751 / 66982 3600 / 3600 1500 / 1500 Balance [...] 40 Mg Tablet) 40 mg PO DAILY COUNTS INCLUDE 234 BEDS AT THE [facility] Stop: 10/09/24 08:59 Last Admin: 10/11/23 08:02 Dose: 40 mg Budesonide/Formoterol Fumarate (Budesonide/Formoterol 160-4.5 Mcg 60 Puff/6 Gm Hfa.Aer.Ad) 2 puff INHALATION Q12HR.10A.10P COUNTS INCLUDE 234 BEDS AT THE [facility] Stop: 10/08/24 21:59 Last Admin: 10/11/23 07:58 Dose: 2 puff Dextrose (Dextrose 50% In Water 25 Gm/50 Ml Syringe) 0 gm IV-PUSH PRN PRN PRN Reason: Hypoglycemia Stop: 10/06/24 02:05 Furosemide (Furosemide 40 Mg/4 Ml Vial) 40 mg IV-PUSH BID@0800,1600 COUNTS INCLUDE 234 BEDS AT THE [facility] Stop: 10/06/24 07:59 Last Admin: 10/11/23 08:01 Dose: 40 mg Gabapentin (Gabapentin 600 Mg Tablet) 600 mg PO BID COUNTS INCLUDE 234 BEDS AT THE [facility] Stop: 10/06/24 11:59 Last Admin: 10/11/23 08:02 Dose: 600 mg Glucose (Dextrose 40% Gel 15 Gm Tube) 0 gm PO PRN PRN PRN Reason: Hypoglycemia Stop: 10/06/24 02:05 Heparin Sodium (Porcine) (Heparin 5,000 Unit/Ml Vial) 5,000 unit SUBCUT Q8HR COUNTS INCLUDE 234 BEDS AT THE [facility] Stop: 10/06/24 05:59 Last Admin: 10/11/23 05:42 Dose: 5,000 unit Hydralazine HCl (Hydralazine 50 Mg Tablet) 50 mg PO BID COUNTS INCLUDE 234 BEDS AT THE [facility] Stop: 10/08/24 08:59 Last Admin: 10/11/23 08:02 Dose: 50 mg Insulin Aspart (Insulin Aspart 300 Units/3 Ml Insuln.Pen) 0 units SUBCUT TID.WM.HS COUNTS INCLUDE 234 BEDS AT THE [facility]; Protocol Stop: 10/06/24 07:59 Last Admin: 10/11/23 11:38 Dose: 3 units Insulin Glargine (Insulin Glargine 300 Units/3 Ml Insuln.Pen) 20 units SUBCUT BID JIMMIE Stop: 10/07/24 20:59 Last Admin: 10/11/23 08:02 [...] reviewed the report(s) and am incorporating any findingsin the treatment plan of this patient where [...] Baseline serum creatinine around 1.5 mg deciliter. UArevealed 100 protein (3) Hyperkalemia: Plan: Patient presented [...] By: <Electronically signed by Gigi Cooper MD> 10/11/236 [facility] Work Phone: 1(255) 327-579502-21-2024 Progress note Author Yesi Murphy [facility] October 11, 2023 8:19amNote Date/TimeFebruary 2023 8:[place] [address] Hospitalist Progress Note Signed Patient: Nicole Lora MR#: [id number] [birth year] : 1960 Acct:[id number] Age/Sex: 63 / M Adm Date: 4 Loc: 3T Room: [address] [place] [address] Type: ADM IN Attending Dr: Yesi Murphy [...] Vial SUBCUT 10/06/24 05:59 5,000 unit Q8HR JIMIME Administration Hydralazine HCl 50 mg 10/09/23 09:00 [...] on chronic heart failure with preserved ejection wcvgdwoo72% Patient is using 4 L nasal cannula [...] <Electronically signed by Yesi Murphy MD> 10/11/23818 [facility] Work Phone: 1(114) 159-813402-20-2024 Progress note Author Yesi Murphy [facility] October 10, 2023 1:19pmNote Date/TimeFebruary 2023 10:12[place] [address] Hospitalist Progress Note Signed Patient: Nicole Lora MR#: [id number] [birth year] : 1960 Acct:[id number] Age/Sex: 63 / M Adm Date: 4 Loc: Room: [address] [place] [address] Type: ADM IN Attending Dr: Yesi Murphy [...] on chronic heart failure with preserved ejection ybdyunop32% Patient is using 4 L nasal cannula [...] chart, the team's documentation, and discussed the patientcare with the team. I agree with the team's medical decision making and have edited the note to reflect my clinical findings and my assessment and plan. MD Charan Documented By: Loreta Lawrence DO, JOSE 10/10/23 1 004 Signed By: <Electronically signed by DO JOSE Lawrence> 10/10/23 1056 <Electronically signed by Yesi Murphy MD> 10/10/[address] [facility] Work Phone: 1(527) 188-578302-20-2024 Progress note Author Gigi Cooper [facility] October 10, 2023 12:50pmNote Date/TimeFebruary 2023 12:51pmFine[place] [address] Nephrology Progress Note Signed Patient: Nicole Lora MR#: [id number] [birth year] : 1960 Acct:[id number] Age/Sex: 63 / M Adm Date: 4 Loc: Room: [address] [place] [address] Type: ADM IN Attending Dr: Yesi Murphy [...] Patient said he has been compliant with low-salt diet and with his home diuretics. Patient [...] and acetazolamide 500 mg IV daily patient metolazone5 mg x1. Serum creatinine this morning 1.5 [...] Total 4250 / 4250 3475 / 3475 73299 / 13713 900 / 900 Balance -2620 / -2620 [...] 40 Mg Tablet) 40 mg PO DAILY COUNTS INCLUDE 234 BEDS AT THE [facility] Stop: 10/09/24 08:59 Last Admin: 10/10/23 08:35 Dose: 40 mg Budesonide/Formoterol Fumarate (Budesonide/Formoterol 160-4.5 Mcg 60 Puff/6 Gm Hfa.Aer.Ad) 2 puff INHALATION Q12HR.10A.10P COUNTS INCLUDE 234 BEDS AT THE [facility] Stop: 10/08/24 21:59 Last Admin: 10/10/23 10:19 Dose: 2 puff Dextrose (Dextrose 50% In Water 25 Gm/50 Ml Syringe) 0 gm IV-PUSH PRN PRN PRN Reason: Hypoglycemia Stop: 10/06/24 02:05 Furosemide (Furosemide 40 Mg/4 Ml Vial) 40 mg IV-PUSH BID@0800,1600 COUNTS INCLUDE 234 BEDS AT THE [facility] Stop: 10/06/24 07:59 Last Admin: 10/10/23 08:35 Dose: 40 mg Gabapentin (Gabapentin 600 Mg Tablet) 600 mg PO BID COUNTS INCLUDE 234 BEDS AT THE [facility] Stop: 10/06/24 11:59 Last Admin: 10/10/23 08:35 Dose: 600 mg Glucose (Dextrose 40% Gel 15 Gm Tube) 0 gm PO PRN PRN PRN Reason: Hypoglycemia Stop: 10/06/24 02:05 Heparin Sodium (Porcine) (Heparin 5,000 Unit/Ml Vial) 5,000 unit SUBCUT Q8HR COUNTS INCLUDE 234 BEDS AT THE [facility] Stop: 10/06/24 05:59 Last Admin: 10/10/23 05:49 Dose: 5,000 unit Hydralazine HCl (Hydralazine 50 Mg Tablet) 50 mg PO BID COUNTS INCLUDE 234 BEDS AT THE [facility] Stop: 10/08/24 08:59 Last Admin: 10/10/23 08:36 Dose: 50 mg Insulin Aspart (Insulin Aspart 300 Units/3 Ml Insuln.Pen) 0 units SUBCUT TID.WM.HS COUNTS INCLUDE 234 BEDS AT THE [facility]; Protocol Stop: 10/06/24 07:59 Last Admin: 10/10/23 11:50 Dose: 3 units Insulin Glargine (Insulin Glargine 300 Units/3 Ml Insuln.Pen) 20 units SUBCUT BID COUNTS INCLUDE 234 BEDS AT THE [facility] Stop: 10/07/24 20:59 Last Admin: 10/10/23 08:37 [...] 0.4 Mg Cap.Er.24h) 0.4 mg PO DAILY COUNTS INCLUDE 234 BEDS AT THE [facility] Stop: 10/09/24 08:59 Last Admin: 10/10/23 08:35 Dose: 0.4 mg Allergies Penicillins Allergy (Verified 10/06/23 20:32) Rash Results Labs 10/06/23 20:35 10/10/23 06:28 Labs: 10/10/23 10/10/23 06:28 09:35 BUN 45 H Creatinine 1.52 H Urine Color Yellow Urine Appearance Clear Urine pH 5.0 Ur Specific [place] 1.008 Urine Protein 30 H Urine Glucose [...] reviewed the report(s) and am incorporating any findingsin the treatment plan of this patient where [...] Baseline serum creatinine around 1.5 mg deciliter. UArevealed 100 protein (3) Hyperkalemia: Plan: Patient presented [...] concern Documented By: Gigi Cooper MD 10/10/23 1247 Signed By: <Electronically signed by Gigi Cooper MD> 10/10/[address] [facility] Work Phone: 1(671) 945-368102-19-2024 Progress note Author Hood Zacarias [facility] October 09, 2023 5:43pmNote Date/TimeFebruary 2023 2:[place] [id number] Event Note Signed Patient: Nicole Lora MR#: [id number] 29 : 1960 Acct:[id number] Age/Sex: 63 / M Adm Date: 4 Loc: 3T Room: [address] [place] [address] Type: ADM IN Attending Dr: Yesi Murphy [...] <Electronically signed by MD Hood Zacarias> 10/09/23 1743 [facility] Work Phone: 1(124) 993-433402-19-2024 Progress note Author Yesi Murphy [facility] October 09, 2023 2:16pmNote Date/TimeFebruary 2023 1:59pmGary [place] [id number] Hospitalist Progress Note Signed Patient: Nicole Lora MR#: [id number] [birth year] : 1960 Acct:[id number] Age/Sex: 63 / M Adm Date: 4 Loc: 3T Room: [address] [place] [address] Type: ADM IN Attending Dr: Yesi Murphy [...] code Documented By: Yesi Murphy MD 10/09/23 1358 Signed By: <Electronically signed by Yesi Murphy MD> 10/09/[address] [facility] Work Phone: 1(725) 451-817002-19-2024 Consult note Author Gigi Cooper [facility] October 09, 2023 11:35amNote Date/TimeFebruary 2023 11:35[place] [id number] Nephrology Consult Note Signed Patient: Nicole Lora MR#: [id number] 29 : 1960 Acct:[id number] Age/Sex: 63 / M Adm Date: 4 Loc: Room: [address] [place] [address] Type: ADM IN Attending Dr: Yesi Murphy [...] Patient said he has been compliant with low-salt diet and with his home diuretics. Patient [...] and acetazolamide 500 mg IV daily patient metolazone5 mg x1. Serum creatinine this morning 1.5 [...] of breath and body anasarca [facility] Medical History (Updated 10/09/23 @ 11:30 by [...] pen (Toujeo Max U- 300 SoloStar) 35 unit(0.1167 mL) subcut BID #3 mL 06/21/23 [Rx [...] Mg/4 Ml Vial) 40 mg IV-PUSH BID@0800,1600 COUNTS INCLUDE 234 BEDS AT THE [facility] Stop: 10/06/24 07:59 Last Admin: 10/09/23 07:49 Dose: 40 mg Gabapentin (Gabapentin 600 Mg Tablet) 600 mg PO BID COUNTS INCLUDE 234 BEDS AT THE [facility] Stop: 10/06/24 11:59 Last Admin: 10/09/23 07:50 Dose: 600 mg Glucose (Dextrose 40% Gel 15 Gm Tube) 0 gm PO PRN PRN PRN Reason: Hypoglycemia Stop: 10/06/24 02:05 Heparin Sodium (Porcine) (Heparin 5,000 Unit/Ml Vial) 5,000 unit SUBCUT Q8HR COUNTS INCLUDE 234 BEDS AT THE [facility] Stop: 10/06/24 05:59 Last Admin: 10/09/23 06:30 Dose: 5,000 unit Hydralazine HCl (Hydralazine 50 Mg Tablet) 50 mg PO BID COUNTS INCLUDE 234 BEDS AT THE [facility] Stop: 10/08/24 08:59 Last Admin: 10/09/23 08:04 Dose: 50 mg Insulin Aspart (Insulin Aspart 300 Units/3 Ml Insuln.Pen) 0 units SUBCUT TID.WM.HS COUNTS INCLUDE 234 BEDS AT THE [facility]; Protocol Stop: 10/06/24 07:59 Last Admin: 10/09/23 07:58 Dose: Not Given Insulin Glargine (Insulin Glargine 300 Units/3 Ml Insuln.Pen) 20 units SUBCUT BID COUNTS INCLUDE 234 BEDS AT THE [facility] Stop: 10/07/24 20:59 Last Admin: 10/09/23 07:57 [...] QSHIFT JIMMIE Stop: 10/06/24 05:59 Last Admin: 10/09/23 06:31 [...] Cheema Jr., D.OSue10/08/2023 2:58 PM Dictation Location: [place] [address] Any impression(s) listed above is documentation that was entered by the reading physician into a diagnostic report(s) for Nicole Lora. I have reviewed the report(s) and am incorporating any findingsin the treatment plan of this patient where [...] Baseline serum creatinine around 1.5 mg deciliter. UArevealed 100 protein (3) Hyperkalemia: Plan: Patient presented [...] signed by Gigi Cooper MD> 10/09/[address] [facility] Work Phone: 1(850) 500-739202-18-2024 Progress note Author Ramses Masters [facility] October 08, 2023 4:03pmNote Date/TimeFebruary 2023 12:52pmFine[place] [address] Hospitalist Progress Note Signed with Jazzy Patient: Nicole Lora MR#: [id number] 29 : 1960 Acct:[id number] Age/Sex: 63 / M Adm Date: 4 Loc: 3T Room: [address] [place] [address] Type: ADM IN Attending Dr: Ramses Masters [...] the daughterand he is usually seen at [facility]. He was recently admitted in August for pneumonia, volume overload and sepsis and now he is back again. The daughter requested the patient to be transferred to [facility]. I explained to thedaughter that at this time the patient is improving and would not have much to be offered more at [facility] but the daughter insistent to have himtransferred and that she would feel more comfortable about that. I contacted the [facility] transfer center and spoke with Dr. medeiros [...] his oxygen at home?4 L at all times.He also reports he has been taking his water pills as directed at home, however his legs keep swelling. He denies chest pain, states he is short of breath all the time. Denies fever or chills, nauseaor vomiting. He does complain of chronic pain especially in aches to the right lower extremity thatgoes up into his hip, reports that he has had imaging done of his hip and he said that nothing was w maria t. He reports he has never smoked, he [...] Dose Route Start Last Admin Trade Name Fregladys PRN Reason Stop Dose Admin Acetaminophen 1,000 [...] III?current creatinine seems to be around baseline. ?commanding officer traffic division is stable 1.7 with diuresis. -Consult nephrology [...] signed by Ramses Masters MD> 10/08/23 1252 [facility] Work Phone: 1(754) 234-160402-17-2024 Progress note Author Ramses Masters [facility] October 07, 2023 1:28pmNote Date/TimeFebruary 2023 1:28pmGary [place] [id number] Hospitalist Progress Note Signed Patient: Nicole Lora MR#: [id number] 29 : 1960 Acct:[id number] Age/Sex: 63 / M Adm Date: 4 Loc: 3T Room: [address] [place] [address] Type: ADM IN Attending Dr: Ramses Masters [...] his oxygen at home?4 L at all times.He also reports he has been taking his water pills as directed at home, however his legs keep swelling. He denies chest pain, states he is short of breath all the time. Denies fever or chills, nauseaor vomiting. He does complain of chronic pain especially in aches to the right lower extremity thatgoes up into his hip, reports that he has had imaging done of his hip and he said that nothing was w maria t. He reports he has never smoked, he [...] 93 L Venturi Mask 14 10/07/23 11:35 02/17/24 11:35 10/07/23 11:35 10/07/23 11:35 10/07/23 11:35 [...] 300s, Lantus 10 units twice daily added withISS coverage HTN?not currently on blood pressure medications due to hyperkalemia, awaiting 2Decho to evaluate LVfunction before deciding on proper medications RLS?ropinirole BPH?tamsulosin Neuropathy?resumed on gabapentin 600 mg twice a day Urine retention?continue to maintain Elliott DVT PPx-SCDs, Madyson wrap's, heparin Diet order-1800 ADA, heart healthy CODE STATUS-full code Documented By: Ramses Masters MD 10/07/23 1322 Signed By: <Electronically signed by Ramses Masters MD> 10/07/[address] [facility] Work Phone: 1(472) 263-290602-17-2024 History and physical note Author Tera Nevarez [facility] October 07, 2023 4:13amNote Date/TimeFebruary 2023 2:10amFine[place] [address] Hospitalist H&P Signed Patient: Nicole Lora MR#: [id number] 29 : 1960 Acct:[id number] Age/Sex: 63 / M Adm Date: 4 Loc: Room: [address] [place] [address] Type: ADM IN Attending Dr: Tera Nevarez DO Copies to: URBANO Pfeiffer MD, DO~ HPI DATE OF EXAMINATION: 10/07/23 CHIEF COMPLAINT: [...] entry to the room patient has his oxygenoff, SpO2 75%, placed simple mask back on [...] creatinine 1.86, glucose 243. BNP 131. Troponin 8.2.UA with clear, yellow urine, 100 protein, 100 glucose, 3+ occult blood, innumerable RBCs, no bacteria seen. Nasal swab negative for COVID, influenza and RSV. Patient was medicated with 40 mg of LasixIV, DuoNeb, 125 Solu-Medrol, Nitro- Durpatch. He will be admitted as inpatient to the [facility] telemetry floor. Review of Systems Review of Systems Review of systems: A 10 point review of systems was obtained, negative unless noted in the HPI or below. [facility] Medical History (Updated 10/07/23 @ 02:34 by [...] pen (Toujeo Max U- 300 SoloStar) 35 unit(0.1167 mL) subcut BID #3 mL 06/21/23 [Rx [...] % (Auto) 11.2 % (.) 10/06/23 20:35 [place] % (Auto) 10.0 % (.) 10/06/23 20:35 Eos % (Auto) 3.0 % (.) 10/06/23 20:35 Baso % (Auto) 1.0 % (.) 10/06/23 20:35 Nucleat RBC Rel Count 0.1 /100 WBC (0-0.5) 10/06/23 20:35 Neut # (Auto) 5.2 x10E3/uL (1.8-7.7) 10/06/23 20:35 Lymph # (Auto) 0.8 x10E3/uL (1.00-4.8) L 10/06/23 20:35 [place] # (Auto) 0.7 x10E3/uL (0.0-0.8) 10/06/23 20:35 [...] pH 5.0 (5.0-9.0) 10/06/23 21: Ur Specific [place] 1.013 (1.001-1.030) 10/06/23 21:26 Urine Protein 100 mg/dL (Negative) H 02/16/24 21:26 Urine Glucose (UA) 100 mg/dL (Normal) H 10/06/23 21:26 Urine Ketones Negative (Negative) 10/06/23 21:26 Urine Occult Blood 3+ (Negative) H 10/06/23 21:26 Urine Nitrite Negative (Negative) 10/06/23 21: Urine Bilirubin Negative (Negative) 10/06/23 21: Urine Urobilinogen Normal mg/dL (Normal) 10/06/23 21:26 Ur Leukocyte Esterase Negative (Negative) 10/06/23 21:26 [...] setting as: INPATIENT because of an expectation ofan over 2 midnight stay. Estimated length of stay (# of days): 3 Documented By: Lory Quinn APRN 10/07/23 0209 Signed By: <Electronically signed by URBANO Quinn> 10/07/23 0243 <Electronically signed by Tera Nevarez DO> 10/07/23 0413 [facility] Work Phone: 1([phone]) 176-821802-04-2024 Hospital Discharge instructions Patient Education 09/24/2023 21:50:57 [...] Treatment for this condition includes: Antibiotic medicine. Idlp-zdm-ywiwpbi medicines to treat discomfort. Drinking enough water [...] Follow these instructions at home: Medicines Take rkkn-ywq-ebxhacu and prescription medicines only as told by [...] provider. Document Revised: 03/19/2021 Document Reviewed: 03/19/2021 [employer] Patient Education 2022 [employer] Follow Up Care 09/24/2023 20:06:30 With:Taz THOMAS Address: [address] [place] [address]- Business (1) When:09/26/2023 21:38:10 With:REID BROOKE [facility] [place] [address]- Business (1) When:Within 3 Day(s) [facility]02-04-2024 Evaluation + Plan noteExtracted from: Title:ED NoteAuthor:Jose Miguel Phan DODate:09/24/23 Acute UTI (N39.0: Urinary tr act infection, site not specified) Orders: cephalexin, 500 mg = 1 cap(s), Oral, q6hr, X 5 day(s), # 20 cap(s), Refills(s) 0, [facility]: [id number], 180, cm, 09/24/23 20:13:00 EST, Height/Length Dosing, [...] AM Scheduled Provider:BRYAN Bahena APRN, Gisselle Glasgow Location:[facility] Appointment Type:URO New Patient Appointment Date:09/28/2023 01:00:00 PM Scheduled Provider: [facility] Appointment Type: HBO () Appointment Date:10/18/2023 09:00:00 AM Scheduled Provider:Taz THOMAS MD Location:[facility] Appointment Type:URO New Patient Diagnostic Tests Pending * Urine Culture 09/24/23 Future Scheduled Tests Radiology* XR Chest 2 Views 05/15/23 * XR Chest 2 Views 05/15/23 [facility]01-28-2024 Hospital Discharge instructions Patient Education 09/17/2023 15:30:40 [...] bag. Secure the leg bag according to elementary school director's instructions. This may be above or [...] on each side. Do this in a ahzbt-jr-kamo direction. ?If you are male: ?Use one [...] Clean the drainage bag according to the elementary school director's instructions or as told byyour health [...] and water are not available, use hand asphalt paving foreman. Always make sure there are no twists, [...] provider. Document Revised: 04/07/2022 Document Reviewed: 04/07/2022 [employer] Patient Education 2022 [employer] Follow Up Care 09/17/2023 14:05:58 With:REID BROOKE Address: [address] [place] [id number] Business (1) When:09/20/2023 15:07:35 Comments:Apply small amount [...] with urologist as instructed by the hospitalist. [facility]01-28-2024 Evaluation + Plan noteExtracted from: Title:ED NoteAuthor:Alejandro Silva M.D. HDate:09/17/23 1. Encounter for evaluation of Elliott catheter [...] XR Chest 2 Views 05/15/23 [facility]01-27-2024 [facility]Result Comment: Electronically Signed By: Kayla Garcia MD\.br\Date and Time Signed: 09/16/23 10:23 [id number] [facility] Comment on above:Result Comment: Electronically Signed By: Kayla Garcia MD\.br\Date and Time Signed: 09/12/23 17:49 [id number] Hospital Discharge instructions Patient Education 08/06/2023 14:18:47 RICE Therapy for Routine Care of Injuries, Bzyr-er-Izqd RICE Therapy for Routine Care of Injuries [...] provider. Document Revised: 05/27/2021 Document Reviewed: 05/27/2021 [employer] Patient Education 2022 [employer] 08/06/2023 14:18:47 Hip Pain Hip Pain The [...] activities that cause pain. General instructions Take ncpq-wyr-jekomfn and prescription medicines only as told by [...] provider. Document Revised: 12/23/2019 Document Reviewed: 12/23/2019 [employer] Patient Education 2022 [employer] Follow Up Care 08/06/2023 13:03:18 With:REID BROOKE Address: [facility] [address] [address]- Business (1) When:08/09/2023 14:06:25 Comments:Follow-up with your primary care provider in 3 to 5 days. If symptoms worsen, do not improve, or new symptoms arise please report back to emergency department for further evaluation. [facility]12-17-2023 Evaluation + Plan noteExtracted from: Title:ED NoteAuthor:Greyson ENGLE, Paddy JoséDate:08/06/23 Right hip pain (M25.551: Barb n in right hip) Orders: XR Hip 2-3 Views Right + Pelvis Future Appointments Appointment Date:08/16/2023 09:30:00 AM Scheduled Provider:Sukh Harrington DPM [facility] Appointment Type:WC Follow Up Visit (FT) Appointment Date:08/24/2023 10:00:00 AM Scheduled Provider:Migue STROUD MD Location:[facility] Appointment Type: Open Future Scheduled Tests Radiology* XR Chest 2 Views 05/15/23 * XR Chest 2 Views 05/15/23 [facility]11-01-2023 Progress note Author Amrik De Guzman [facility] June 21, 2023 12:21pmNote Date/TimeJune 21, 2023 12:21pm[address] [address] Pulmonology Progress Note Signed Patient: Nicole Lora MR#: [id number] 29 : 1960 Acct:[id number] Age/Sex: 63 / M Adm Date: 3 Loc: Room: [address] [place] [address] Type: ADM IN Attending Dr: Alban Arrington [...] he is following up with pulmonology in [place], and supposed to call for sleep study and arrangement of positive pressure ventilation at home. Otherwise he is being discharged today, no further recommendations from my standpoint Documented By: Amrik De Guzman MD 06/21/23 1217 Signed By: <Electronically signed by Amrik De Guzman MD> 06/21/23 1221 [facility] Work Phone: 1(226) 718-382011-01-2023 Discharge summary Author Alban Arrington [facility] June 21, 2023 1:58pmNote Date/TimeNov2022 12:17pm[address] [address] Discharge Summary Signed Patient: Nicole Lora MR#: [id number] 29 : 1960 Acct:[id number] Age/Sex: 63 / M Adm Date: 3 Loc: Room: [address] [place] [address]: Alban Arrington DO Copies to: [...] newly initiated on 4 L nasal cannula ujgqvm-zrw-rzyto for ongoing hypoxia. Prior to this he denies any major cardiopulmonary disease besides some asthma in the past. Significantly edematous on arrivalto the ER and further evidence of CHF [...] this time the patient is anxious to bedischarged. Explained to him that he needs tofollow-up [...] lisinopril HCTZ for additional diuretic effect and nephroprotection given his chronic hypertension and diabetes. Narrative: [...] Sodium 143, Potassium 4.4, Chloride 100, Carbon Njhqygu00.1 H, Anion Gap 6.3, BUN 38 H, Creatinine 1.60 H, Est GFR (CKD-EPI) 47.816, Glucose 60 L D, Calcium 8.7, Magnesium 1.8 L 06/21/23 06:54: Corrected WBC 9.5, Uncorrected WBC Count 9.5, RBC 5.24, Hgb 14.9, Hct 46.3, MCV 88.3, MCH 28.4, MCHC 32.2 L, RDW 16.0 H, Plt Count 241, MPV 7.1, Neut % (Auto) 57.7, Lymph % (Auto) 26.3, [place] % (Auto) 9.9, Eos % (Auto) 5.4, Baso % (Auto) 0.7, Nucleat RBC Rel Count 0.1, Neut # (Auto) 5.5, Lymph # (Auto) 2.5, [place] # (Auto) 0.9 H, Eos # (Auto) [...] 11:22 06/21/23 11:22 06/21/23 11:22 06/21/23 11:50 11/01/23 11:50 Discharge Plan Discharge Plan Patient Disposition: Home Activity: No Activity Restriction Diet: Diabetic and Low-Sodium Additional Instructions: Continue oxygen as per chronic orders. Dietitian recommendations: *Magic cup, 1 container, daily with meal Monitor glucose levels as before. Change dressing daily: *left foot ulcer- allow vashe moistened gauze soak on wound bed for 5 min., wipe free loose debris,apply hydrogel with collagen to wound bed, top with 4x4s and secure with kerlix Please keep previously scheduled appointment with journal clerk in [place]. Prescriptions: New lisinopril-hydrochlorothiazide 20-25 mg tablet 1 [...] <Electronically signed by Alban Arrington DO> 06/21/[address] [facility] Work Phone: 1(321) 445-939710-31-2023 Consult note Author Amrik De Guzman [facility] June 20, 2023 2:43pmNote Date/TimeOct2022 2:43pmFine[place] [address] Pulmonology Consult Note Signed Patient: Nicole Lora MR#: [id number] [birth year] : 1960 Acct:[id number] Age/Sex: 63 / M Adm Date: 3 Loc: Room: [address] [place] [address] Type: ADM IN Attending Dr: Alban Arrington [...] coughing spells for which she went to [facility] emergency room, wastold that he [...] no distress but required 5 L of o xygen, he was discharged home from [facility] on 4 L of oxygen. White count was normal his BUN and creatinine were elevated and was diagnosed with chronic kidney disease even previously at [facility]. I do not have any of his previous x-rays, CT, to review, chest x-ray here showed mild left lower lobe infiltrate possibly fibrotic or atelectatic with some volume loss in the left lung, again nobaseline film to compare Review of Systems Review of Systems Review of systems: As mentioned above [facility] Medical History (Updated 06/20/23 @ 14:40 by [...] pen (Toujeo Max U- 300 SoloStar) 40 unitsubcut BID 06/19/23 [History Confirmed 06/19/23] insulin lispro [...] failure or cor pulmonale. Reportedly echo at [facility] did not report pulmonary hypertension but clinical evaluationis consistent with that. * Without pulmonary function testing it is hard to establish the diagnosis of asthma as his symptoms could very well be related to upper airway cough synd ant associated with obstructive sleep apneaand nocturnal GERD * Echocardiogram was ordered we will evaluate * I will obtain ABGs for baseline * Patient tolerated CPAP at 13 cm of water while he was [facility] per his history, will try this again tonight * Patient reported to me seeing pulmonology in [place] who are arranging for sleep study and treatment of obstructive sleep apnea * Will need continued diuretic therapy on discharge in addition to continuous oxygen therapy * Maintain inhaled therapy as started by pulmonology in [place], patient will follow-up with them upon discharge Documented By: Amrik De Guzman MD 06/20/23 1434 Signed By: <Electronically signed by Amrik De Guzman MD> 06/20/[address] [facility] Work Phone: 1(415) 866-617510-31-2023 Progress note Author Alban Arrington [facility] June 20, 2023 1:37pmNote Date/TimeOct2022 9:48[place] [address] Hospitalist Progress Note Signed Patient: Nicole Lora MR#: [id number] [birth year] : 1960 Acct:[id number] Age/Sex: 63 / M Adm Date: 3 Loc: Room: [address] [place] [address] Type: ADM IN Attending Dr: Alban Arrington DO Copies to: ~ Date of Service: 06/20/2023 Subjective Subjective Narrative: Patient seen and examined this morning. He is resting comfortably in the recliner. Patient remains on supplemental oxygen, currently on 5 L nasal cannula. Patient reports improvement in his symptoms since admission. He denies any concerns or complaints at this time. Denies fevers, chest pains, nause a,abdominal pain. Exam Physical Exam Vital Signs: Temp [...] chronic hypoxic respiratory failure -Recently discharged from [facility] for pneumonia on 4 L [...] congestive heart failure, unspecified type -Echo at [facility] showed EF of 60 to [...] only underlying asthma but likely a component ofsleep apnea as well. He is agreeable to [...] 06/20/23 0948 Signed By: <Electronically signed by RES Yeny Newman> 06/20/23 1025 <Electronically signed by Alban Arrington DO> 06/20/23 1337 [facility] Work Phone: 1(424) 805-212110-30-2023 Progress note Author Alban Arrington [facility] June 19, 2023 10:05amNote Date/TimeOctober 2022 10:05[place] [id number] Event Note Signed Patient: Nicole Lora MR#: [id number] [birth year] : 1960 Acct:[id number] Age/Sex: 63 / M Adm Date: 3 Loc: Room: [address] [place] [address] Type: ADM IN Attending Dr: Alban Arrington [...] signed by Alban Arrington DO> 06/19/23 1005 [facility] Work Phone: 1(257) 233-618110-30-2023 History and physical note Author Alban Arrington [facility] June 19, 2023 5:20amNote Date/TimeOctober 2022 3:28[place] [id number] Hospitalist H&P Signed Patient: Nicole Lora MR#: [id number] [birth year] : 1960 Acct:[id number] Age/Sex: 63 / M Adm Date: 3 Loc: 3T Room: [address] [place] [address] Type: ADM IN Attending Dr: Alban Arrington DO Copies to: Alban Arrington DO Reid Brooke DO~ HPI DATE OF EXAMINATION: 06/19/23 CHIEF COMPLAINT: Swelling HISTORY OF PRESENT ILLNESS: This patient is a 63-year-old male recently hospitalized at [facility] and discharged . He was reportedly treated for pneumonia at that time. He was discharged on prednisone and doxycycline. He appears to have been discharged on 4 L of nasal cannula that he is to wear wiftnd-ula-bfwff. His primary complaint today is worsening edema [...] is unclear regarding the patient's baseline kidney dysfunctionbut has mild elevation in BUN/creatinine at 47/1.53. [...] as well as 1 mg IV Bumex x1.The patient was subsequently admitted to the [facility] floor for treatment of acute on chronic hypoxic respiratory failure and suspected CHF. On arrival to the floor the patient states he is breathing better and denies anyfevers or chills. He reports no ongoing chest pain but noticed his swelling is gotten worse since his recent discharge.Denies palpitations. Patient does report acid pain consistent [...] presently and has completed a week worth ofantibiotics when considering his 4-day hospitalization and 3 [...] continued. He only recently was discharged on xpjyd-ujk-agnca 4 L O2. He may have been [...] daily long-acting insulin. Additionally we will add asliding scale. With ongoing glucocorticoid use he islikely [...] noted below or in HPI [facility] Medical History Amputation of one or more [...] pen (Toujeo Max U- 300 SoloStar) 40 unitsubcut BID 06/19/23 [History Confirmed 06/19/23] insulin lispro [...] % (Auto) 20.2 % (.) 06/18/23 22:08 [place] % (Auto) 9.2 % (.) 06/18/23 22:08 Eos % (Auto) 3.1 % (.) 06/18/23 22:08 Baso % (Auto) 0.7 % (.) 06/18/23 22:08 Nucleat RBC Rel Count 0.1 /100 WBC (0-0.5) 06/18/23 22:08 Neut # (Auto) 4.5 x10E3/uL (1.8-7.7) 06/18/23 22:08 Lymph # (Auto) 1.4 x10E3/uL (1.00-4.8) 06/18/23 22:08 [place] # (Auto) 0.6 x10E3/uL (0.0-0.8) 06/18/23 22:08 [...] pH 5.5 (5.0-9.0) 06/18/23 23:26 Ur Specific [place] 1.020 (1.001-1.030) 06/18/23 23:26 Urine Protein 100 mg/dL (Negative) H 06/18/23 23:26 Urine Glucose (UA) >=1000 mg/dL (Normal) H 06/18/23 23:26 Urine Ketones Negative (Negative) 06/18/23 23: Urine Occult Blood Negative (Negative) 06/18/23 23: Urine Nitrite Negative (Negative) 06/18/23 23: Urine [...] setting as: INPATIENT because of an expectation ofan over 2 midnight stay. Estimated length of stay (# of days): 4 Documented By: Alban Arrington DO 06/19/23 23 Signed By: <Electronically signed by Alban Arrington DO> 06/19/23 05 [facility] Work Phone: 1([phone]) 565-329810-26-2023 Evaluation + Plan noteExtracted from:Title: Discharge NoteAuthor:Mingo Pillai DODate:06/15/23 Discharge To, Anticipated II - Home independently [...] 11 refills, Not taking Freestyle Sage 2 [place], See Instructions Freestyle Sage 2 Sensors, See Instructions, 3 refills gabapentin 600 mg Tab, 600 mg= 1 tab(s), Oral, TID, 11 refills Glucometer, See Instructions Glucometer test strips, See Instructions, 11 refills guaiFENesin 600 mg ER Tab, 1200 mg= 2 tab(s), Oral, BID Insulin Pen [place] 31g x 8 mm, See Instructions, 4 [...] tab(s), Oral, Daily With When Contact Information [facility] 06/21/2023 09:30 AM EDT Additional Instructions: Ida LYMAN, Pippa Mabry, PUL, KATY Within 2 to [address] weeks [address] [facility] ([facility]) [place] [address]- Additional Instructions: Call for followup appointment Mounika Brooke [address] [place] [address]- Business (1) Additional Instructions: Please call the office to make a follow up appiontment. [facility] Thank you. Hypoxia Community-Acquired Pneumonia, Adult, Ivbd-hk-Gfyk Extracted from:Title:APSO NoteAuthor:Saul CLEMENT-Dipak BECKER.Date:06/15/23 Acute respiratory failure wi th hypoxia and [...] with home O2 from pulmonary standpoint Extracted from:Title:PCCM progress noteAuthor:Shaquille Alex Jr., PA-CDate: 06/14/23 1. Acute respiratory failure with hypoxia and [...] BID, NOW, Start date 06/14/23 9:22:00 EDT, 239:22:00 EDT Addendum by Ida LYMAN, [facility] on June 14, 2023 15:59:41 EDT I have seen and evaluated the patient with the physician customer assistant. His history, physical exam, assessment and plan were done in collaboration. I performed an independent physical examination. I agree with all the above. Improving but remains with high oxygen requirement currently at 4 L. Exam appears to be unremarkable. His CRP levels are negative. I doubt the significance of positive double- stranded DNA with a negative CRP level and lupus pneumonitis appears to be unlikely at this point. Continue with antibiotics. Cut down his systemic steroids continue with bronchodilator therapy. Encourage incentive spirometry use. Wean down his FiO2 as tolerated. Extracted from:Title:Inpatient Consultation-Floor Code*Author:Hugo Sales MD Date:06/14/23 Impression and Plan 1. [...] to baseline. - No urgent need for TILE LAYER HELPER - Hold losartan and metformin for AMY [...] d/t diabetic kidney disease. Was scheduled for HFUin our office 09/09/2021 but was a no show. Will make another appointment on Jul 18 @ 3:00 pm. Extracted from:Title:APSO NoteAuthor:Mingo Pillai DODate:06/14/23 1. Acute respiratory failure with hypoxia and [...] fibrosis changes, drug toxicity and connective tissue disease,trace right pleural effusion Patient states baseline weight is approximately 300 pounds, currently 310 pounds, strict I's and O's, daily weights. pt appears to be 5 kg over admission weight as well Desaturation test for possible home O2 We will await pulmonology recommendations Ordered: [facility] Hospital Care/Day Moderate 35 Minutes 61638 2. Elevated brain natriuretic peptide (BNP) level (R79.89: Other specified abnormal findings of blood chemistry) despite echo negative for acute findings, cxr was concerning for fluid congestion 3. TC (obstructive sleep apnea) (G47.33: Obstructive sleep apnea (adult) (pediatric)) BiPap qHS and PRN 4. Hyperkalemia (E87.5: Hyperkalemia) 2/2 elevated glucose as well as elevated Cr, improved Status post [facility] Nephrology consulted and following trend control glucose [...] Auto Diff eGFR eGFR US Renal Extracted from:Title:Inpatient Consultation-Floor Code*Author:Sasha Stevens NPDate:06/13/23 Impression and Plan 1. Acute kidney Injury: [...] at 50ml/hour. - No urgent need for TILE LAYER HELPER - Hold losartan and metformin for AMY [...] d/t diabetic kidney disease. Was scheduled for HFUin our office 09/09/2021 but was a no show. Extracted from:Title:PCCM progress noteAuthor:Nehal Robles PA-C, Shaquille MabryDate: 06/13/23 1. Acute respiratory failure with hypoxia and [...] mobile and will be able to use portableOxygen. Addendum by Jodee Giang on June 14, 2023 13:21:12 EDT Error on addendum meant to go to DR Onesimo wall. Extracted from:Title:APSO NoteAuthor:Mingo Pillai DODate:06/13/23 1. Acute respiratory failure with hypoxia and [...] fibrosis changes, drug toxicity and connective tissue disease,trace right pleural effusion Patient states baseline weight is approximately 300 pounds, currently 310 pounds, strict I's and O's, daily weights. pt appears to be 5 kg over admission weight as well Ordered: [facility] Hospital Care/Day High 50 Minutes 55797 2. Elevated brain natriuretic peptide (BNP) level [...] Once, Stop date 06/12/23 11:00:00 EDT, Routine, Startdate 06/12/23 11:00:00 EDT, 06/12/23 10:05:00 EDT heparin, [...] Output XR Chest Single View Addendum by Mingo Pillai DO on June 13, 2023 11:04:01 EDT Chronic [...] mobile and will be able to use portableOxygen. Extracted from:[facility] Consult NoteAuthor:Shaquille Alex Jr., PA-CDate: 06/12/23 1. Acute respiratory failure with hypoxia and [...] on Test Procalcitonin Addendum by Ida LYMAN, [facility] on June 12, 2023 17:23:20 EDT I have seen and evaluated the patient with the physician customer assistant. His history, physical exam, assessment and [...] if no improvement with above measures. Extracted from:Title:APSO NoteAuthor:Mingo Pillai DODate:06/12/23 1. Acute hypoxemic respirato ry failure (J96.01: [...] fibrosis changes, drug toxicity and connective tissue disease,trace right pleural effusion Patient states baseline weight is approximately 300 pounds, currently 310 pounds, strict I's and O's, daily weights Ordered: [facility] Hospital Care/Day High 50 Minutes 43504 2. Elevated brain natriuretic peptide (BNP) level [...] Once, Stop date 06/12/23 11:00:00 EDT, Routine, Startdate 06/12/23 11:00:00 EDT, 06/12/23 10:05:00 EDT losartan, 100 mg = 2 tab(s), Tab, Oral, Daily, Routine, Start date 06/12/23 9:00:00 EDT, 06/12/23 7:17:00 EDT Basic Metabolic Panel CBC w/ Auto Diff Dressing Care/Change Strict Intake and Output XR Chest Single View Extracted from:Title:Admission H & PAuthor:Jose LYMAN, AhmadDate:06/11/23 Acute hypoxemic respiratory failure Elevated BNP TC [...] DVT PPX: Heparin Plan: As above Extracted from:Title:ED NoteAuthor:Paddy Betancourt PA-CDate:06/11/23 Hypoxia (R09.02: Hypoxemia) Left against medical advice (Z53.29: Procedure and treatment not carried out because of patient's decision for other reasons) Pneumonia (J18.9: Pneumonia, unspecified organism) Orders: albuterol-ipratropium, 3 mL, Soln-Inh, Inhalation, Once, Stop date 06/11/23 14:06:00 EDT, STAT, Start date 06/11/23 14:06:00 EDT doxycycline, 100 mg = 1 cap(s), Oral, BID, # 20 cap(s), Refills(s) 0, Pharmacy: [facility] #[id number], 182, cm, 06/11/23 13:54:00 EDT, Height/Length Dosing, [...] Push, Once, Stop date 06/11/23 15:37:00 EDT, STAT,Start date 06/11/23 15:37:00 EDT, 06/11/23 15:37:00 EDT predniSONE, 50 mg = 1 tab(s), Oral, Daily, X 7 day(s), # 7 tab(s), Refills(s) 0, Pharmacy: [facility]#[id number], 182, cm, 06/11/23 13:54:00 EDT, Height/Length Dosing, 139.6, kg, 06/11/23 13:54:00 EDT, Weight Dosing Automated Diff B-Type Natriuretic Peptide Basic Metabolic Panel Blood Culture Charcoal Blood Culture Charcoal Blood Gas Art, with Lytes, Gluc, Lact CBC w/ Auto Diff Continuous Pulse Oximetry CTA Chest ED Cardiac Monitoring eGFR Lactic Acid Oxygen Therapy PT & PTT Rapid COVID Antigen ([facility]) Saline Lock Insert Troponin 0 Hr. Troponin 3 Hr. Troponin 6 Hr. Troponin 9 Hr. Future Appointments Appointment Date:06/21/2023 09:30:00 AM Scheduled Provider:Sukh Harrington DPM [facility] Appointment Type:WC Follow Up Visit (FT) Appointment Date:08/24/2023 10:00:00 AM Scheduled Provider:Migue STROUD MD Location:[facility] Appointment Type: Open Future Scheduled Tests Radiology* XR Chest 2 Views 05/15/23 * XR Chest 2 Views 05/15/23 [facility]10-22-2023 Hospital Discharge instructions Patient Education 06/11/2023 20:24:39 [...] hypoxia. Follow these instructions at home: Take npfm-sex-bkdtxgv and prescription medicines only as told by [...] provider. Document Revised: 03/08/2022 Document Reviewed: 03/08/2022 [employer] Patient Education 2022 [employer] 06/11/2023 20:24:39 Community-Acquired Pneumonia, Adult, Nqad-tx-Asmw Community-Acquired Pneumonia, Adult Pneumonia is an infection [...] Follow these instructions at home: Medicines Take vgdu-uxf-emtfycd and prescription medicines only as told by [...] cannot use soap and water, use hand asphalt paving foreman. Contact a doctor if: You have a [...] provider. Document Revised: 05/19/2020 Document Reviewed: 05/19/2020 [employer] Patient Education 2022 [employer] Follow Up Care 06/11/2023 13:47:13 With:Ida LYMAN, AIMEE Castro, KATY Address: [address] [place] [address] Pulmonary Clinic (Heart & Vascular) [place] [address]- When:2 to 4 weeks Comments:Call for followup appointment With:[facility] Address:Unknown When:06/21/2023 09:30:00 With:Mounika Brooke Address: [address] [place] [address] [facility] (1) When: Unknown Comments:Please call the office to make a follow up appiontment. You are new to the office. Thank you. [facility]08-14-2023 Hospital Discharge instructions Follow Up Care 04/03/2023 10:10:15 With:MARLI LYMAN, ЮЛИЯ Camarena Address: When:Within 3 Month(s) [facility] 12-15-2022 Hospital Discharge instructions Patient Education 08/04/2022 [...] or polycystic ovarian syndrome (PCOS). Being of Taiwanese-Macedonian, -Taiwanese, /, or / descent. What are the [...] these instructions at home: General instructions Take qxpb-yha-gkllfnf and prescription medicines only as told by [...] 01/31/2002 Document Revised: 04/24/2017 Document Reviewed: 04/24/2017 [employer] Patient Education 2020 [employer] Follow Up Care 08/04/2022 13:03:59 With:Migue STROUD Address: [address] [place], [place] [id number]- [facility] (1) When:08/07/2022 16:52:09 Comments:Call the office of [...] at any time to continue your care. [facility]12-15-2022 Evaluation + Plan noteExtracted from: Title:ED NoteAuthor:Mone Martinez DODate:08/04/22 Dehydration (E86.0: Dehydrat ion) Left against medical advice (Z53.29: Procedure and treatment not carried out because of patient's decision for other reasons) Severe hyperglycemia due to diabetes mellitus (E11.65: Type 2 diabetes mellitus with hyperglycemia) Orders: insulin regular, 10 unit(s) = 0.1 mL, Injection-Insulin, IV Push, Once, Stop date 08/04/22 15:17:00EST, STAT, Start date 08/04/22 15:17:00 EST Sodium [...] Date:09/13/2022 01:00:00 PM Scheduled Provider:Migue STROUD MD Location:[facility] Appointment Type:[facility]08-09-2022 Hospital Discharge instructions Follow Up Care 03/29/2022 14:12:55 With:Migue STROUD MD, FAM Address: When:Within 1 Month(s) [facility] 07-20-2022 Hospital Discharge instructions Patient Education 03/09/2022 [...] or polycystic ovarian syndrome (PCOS). Being of Taiwanese-Macedonian, -Taiwanese, /, or / descent. What are the [...] these instructions at home: General instructions Take ztdd-qia-ggvjlbt and prescription medicines only as told by [...] 01/31/2002 Document Revised: 04/24/2017 Document Reviewed: 04/24/2017 [employer] Patient Education 2020 [employer] 03/09/2022 01:22:46 COVID-19 COVID-19 COVID-19 is a [...] to fight infection (immunocompromised). Live in a correction or long-term care facility. Have a long-term [...] managed at home with rest, fluids, and pqor-hqj-ucomywg medicines. Treatment for a serious infection usually [...] are safe for you. General instructions Take wort-pvr-mzwzdzk and prescription medicines only as told by [...] water are not available, usean alcohol-based hand asphalt paving foreman. ?Avoid touching your mouth, face, eyes, or [...] water are not available, use alcohol-based hand asphalt paving foreman. Stay away from other members of your [...] have a weak immunity, live in a correction, or have chronic disease. There is no [...] 09/12/2019 Document Revised: 01/02/2020 Document Reviewed: 09/12/2019 [employer] Patient Education 2020 [employer] Follow Up Care 03/08/2022 22:47:15 With:Miguecora STROUD Address: [address] [place], [place] [address] Business (1) When:03/16/2022 [facility]07-19-2022 Evaluation + Plan noteExtracted from: Title:ED NoteAuthor:Jose Miguel Phan DODate:03/08/22 Acute COVID-19 (U07.1: COVID -19) Hyperglycemia due to diabetes mellitus (E11.65: Type 2 diabetes mellitus with hyperglycemia) Orders: acetaminophen, 650 mg = 2 tab(s), Tab, Oral, Once, Stop date 03/08/22 23:51:00 EDT, STAT, Start date 03/08/22 23:51:00 EDT, 03/08/22 23:51:00 EDT insulin regular, 10 unit(s), Injection-Insulin, SubCutaneous, Once, Stop date 03/09/22 0:09:00 EDT,STAT, Start date 03/09/22 0:09:00 EDT, 03/09/22 0:09:00 EDT insulin regular, Injection-Insulin, Misc, Once, Stop date 03/09/22 0:25:34 EDT, Physician Stop, 03/09/22 0:25:34 EDT Sodium Chloride 0.9% intravenous solution, 1,000 mL, Soln-IV, IV, Once, Stop date 03/08/22 22:49:00EDT, STAT, Start date 03/08/22 22:49:00 EDT, Infuse over 61, minute(s) Automated Diff Basic Metabolic Panel Beta-hydroxybutyrate Capillary Glucose POC CBC w/ Auto Diff ECG 12 Lead Adult ED Cardiac Monitoring eGFR Hepatic Function Panel Influenza A&B Ag Rapid COVID Antigen ([facility]) Routine Capillary Glucose POC UA With Cult Reflex XR Chest Single View Future Appointments Appointment Date:03/29/2022 01:00:00 PM Scheduled Provider:Migue STROUD MD Location:[facility] Appointment Type:[facility]07-06-2022 Hospital Discharge instructions Follow Up Care 02/23/2022 13:55:05 With:Migue STROUD MD, FAM Address: When:Within 3 Month(s) [facility] 05-10-2022 Hospital Discharge instructions Follow Up Care 12/28/2021 14:20:03 With:Migue STROUD MD, FAM Address: When:Within 2 Month(s) [facility] Evaluation + Plan note Future Appointments Appointment Date:01/11/2022 01:40:00 PM Scheduled Provider:Migue STROUD MD Location:[facility] Appointment Type:[facility] Evaluation + Plan note Future Appointments Appointment Date:03/08/2022 01:20:00 PM Scheduled Provider:Migue STROUD MD Location:[facility] Appointment Type:[facility] evaluation + Plan note Future Appointments Appointment Date:04/08/2022 09:00:00 AM Scheduled Provider: Location:[facility] Appointment Type: Medicare Wellness Subsequent Appointment Date:06/27/2022 02:20:00 PM Scheduled Provider:Migue STROUD MD Location:[facility] Appointment Type:[facility] evaluation + Plan note Future Appointments Appointment Date:06/27/2022 02:20:00 PM Scheduled Provider:Migue STROUD MD Location:[facility] Appointment Type:[facility] evaluation + Plan note Future Appointments Appointment Date:10/11/2022 02:20:00 PM Scheduled Provider:Migue STROUD MD Location:[facility] Appointment Type:[facility] evaluation + Plan note Future Appointments Appointment Date:11/03/2022 10:00:00 AM Scheduled Provider:Migue STROUD MD Location:[facility] Appointment Type:[facility] evaluation + Plan note Future Appointments Appointment Date:03/07/2023 10:40:00 AM Scheduled Provider:Migue STROUD MD Location:[facility] Appointment Type:[facility] Evaluation + Plan note Future Appointments Appointment Date:04/27/2023 09:40:00 AM Scheduled Provider:Migue STROUD MD Location:[facility] Appointment Type:[facility] evaluation + Plan note Future Appointments Appointment Date:04/25/2023 03:30:00 PM Scheduled Provider:Smooth Harrington DPM [facility]oint[facility] Type:WC Follow Up Visit (FT) Appointment Date:04/26/2023 09:30:00 AM Scheduled Provider:Sukh Harrington DPM [facility] Appointment Type:WC Follow Up Visit (FT) Appointment Date:04/27/2023 09:40:00 AM Scheduled Provider:Migue STROUD MD Location:[facility] Appointment Date:04/26/2023 09:30:00 AM Scheduled Provider:Sukh Harrington DPM [facility] Appointment Type:WC Follow Up Visit (FT) Appointment Date:05/22/2023 01:20:00 PM Scheduled Provider:Migue STROUD MD Location:[facility] App[facility]ments Appointment Date:05/01/2023 11:15:00 AM Scheduled Provider: [facility] Appointment Type:WC Assessment (FT) Appointment Date:05/02/2023 04:00:00 PM Scheduled Provider:Smooth Harrington DPM [facility] Appointment Type:WC Follow Up Visit (FT) Appointment Date:05/22/2023 01:20:00 PM Scheduled Provider:Migue STROUD MD Location:[facility] App[facility]ments Appointment Date:05/02/2023 04:00:00 PM Scheduled Provider:Smooth Harrington DPM [facility] Appointment Type:WC Follow Up Visit (FT) Appointment Date:05/22/2023 01:20:00 PM Scheduled Provider:Migue STROUD MD Location:[facility] App[facility]ments Appointment Date:05/22/2023 01:20:00 PM Scheduled Provider:Migue STROUD MD Location:[facility] App[facility]ments Appointment Date:05/16/2023 08:30:00 AM Scheduled Provider: [facility] Type:PUL Pulmonary Function Test (FT) Appointment Date:05/22/2023 01:20:00 PM Scheduled Provider:Migue STROUD MD Location:[facility] Appointment Type:FM Open Appointment Date:06/05/2023 10:30:00 AM Scheduled Provider:Mary Mendez MD [facility] Appointment Type:Pulmonary Follow Up (FT) Future Scheduled Tests Radiology* XR Chest 2 Views 05/15/23 * [facility] Appointment Date:06/05/2023 10:30:00 AM Scheduled Provider:Mary Mendez MD [facility] Appointment Type:Pulmonary Follow Up (FT) Appointment Date:06/07/2023 10:15:00 AM Scheduled Provider:Sukh Harrington DPM [facility] Appointment Type:WC Follow Up Visit (FT) Appointment Date:08/24/2023 10:00:00 AM Scheduled Provider:Migue STROUD MD Location:[facility] Appointment Type: Open Future Scheduled Tests Radiology* XR Chest 2 Views 05/15/23 * XR Chest 2 Views 05/15/23 [facility] [place] Evaluation + Plan note Future Appointments Appointment Date:06/28/2023 09:45:00 AM Scheduled Provider:Sukh Harrington DPM [facility] Appointment Type:WC Follow Up Visit (FT) Appointment Date:08/24/2023 10:00:00 AM Scheduled Provider:Migue STROUD MD Location:[facility] Appointment Type: Open Future Scheduled Tests Radiology* XR Chest 2 Views 05/15/23 * XR Chest 2 Views 05/15/23 [facility] Appointment Date:06/28/2023 11:45:00 AM Scheduled Provider:Sukh Harrington DPM [facility] Appointment Type:WC Follow Up Visit (FT) Appointment Date:08/24/2023 10:00:00 AM Scheduled Provider:Migue STROUD MD Location:[facility] Appointment Type: Open Future Scheduled Tests Radiology* XR Chest 2 Views 05/15/23 * XR Chest 2 Views 05/15/23 [facility] [place] Evaluation + Plan note Future Appointments Appointment Date:07/19/2023 10:30:00 AM Scheduled Provider:Sukh Harrington DPM [facility] Appointment Type:WC Follow Up Visit (FT) Appointment Date:08/24/2023 10:00:00 AM Scheduled Provider:Migue STROUD MD Location:[facility] Appointment Type: Open Future Scheduled Tests Radiology* XR Chest 2 Views 05/15/23 * XR Chest 2 Views 05/15/23 [facility] Appointment Date:08/02/2023 10:45:00 AM Scheduled Provider:Sukh Harrington DPM [facility] Appointment Type:WC Follow Up Visit (FT) Appointment Date:08/24/2023 10:00:00 AM Scheduled Provider:Migue STROUD MD Location:[facility] Appointment Type: Open Future Scheduled Tests Radiology* XR Chest 2 Views 05/15/23 * XR Chest 2 Views 05/15/23 [facility]ments Appointment Date:08/16/2023 09:30:00 AM Scheduled Provider:Sukh Harrington DPM [facility] Appointment Type:WC Follow Up Visit (FT) Appointment Date:08/24/2023 10:00:00 AM Scheduled Provider:Migue STROUD MD Location:[facility] Appointment Type: Open Future Scheduled Tests Radiology* XR Chest 2 Views 05/15/23 * XR Chest 2 Views 05/15/23 [facility]ments Appointment Date:08/24/2023 10:00:00 AM Scheduled Provider:Migue STROUD MD Location:[facility] Appointment Type: Open Appointment Date:08/30/2023 09:15:00 AM Scheduled Provider:Sukh Harrington DPM [facility] Appointment Type:WC Follow Up Visit (FT) Future Scheduled Tests Radiology* XR Chest 2 Views 05/15/23 * XR Chest 2 Views 05/15/23 [facility]ments Appointment Date:08/30/2023 09:15:00 AM Scheduled Provider:Sukh Harrington DPM [facility] Appointment Type:WC Follow Up Visit (FT) Future Scheduled Tests Radiology* XR Chest 2 Views 05/15/23 * XR Chest 2 Views 05/15/23 [facility] Evaluation + Plan note Future Appointments Appointment Date:09/05/2023 03:15:00 PM Scheduled Provider:Smooth Harrington DPM [facility] Appointment Type:WC HBO Eval (FT) Appointment Date:09/13/2023 10:45:00 AM Scheduled Provider:Sukh Harrington DPM [facility] Appointment Type:WC Follow Up Visit (FT) Future Scheduled Tests Radiology* XR Chest 2 Views 05/15/23 * XR Chest 2 Views 05/15/23 [facility] Appointment Date:09/13/2023 10:45:00 AM Scheduled Provider:Sukh Harrington DPM [facility] Appointment Type:WC Follow Up Visit (FT) Appointment Date:09/18/2023 01:00:00 PM Scheduled Provider: Location[facility] Appointment Type:WC HBO (FT) Future Scheduled Tests Radiology* XR Chest 2 Views 05/15/23 * XR Chest 2 Views 05/15/23 [facility] Appointment Date:09/13/2023 10:45:00 AM Scheduled Provider:Sukh Harrington DPM [facility] Appointment Type:WC Follow Up Visit (FT) Appointment Date:09/13/2023 01:00:00 PM Scheduled Provider: Location[facility] Appointment Type:WC HBO (FT) Appointment Date:09/14/2023 01:00:00 PM Scheduled Provider: Location[facility] Appointment Type:WC HBO (FT) Appointment Date:09/18/2023 01:00:00 PM Scheduled Provider: [facility] Appointment Type:WC HBO (FT) Appointment Date:09/28/2023 11:30:00 AM Scheduled Provider:Nicole Thompson MD [facility] Appointment Type: HBO Re-Eval (FT) Future Scheduled Tests Radiology* XR Chest 2 Views 05/15/23 * XR Chest 2 Views 05/15/23 [facility] Appointment Date:10/05/2023 11:00:00 AM Scheduled Provider: Location:[facility] Appointment Type:URO Nurse Visit Appointment Date:10/18/2023 09:00:00 AM Scheduled Provider:Taz THOMAS MD Location:[facility] Appointment Type:URO New Patient Appointment Date:10/18/2023 09:15:00 AM Scheduled Provider:Sukh Harrington DPM [facility] Appointment Type: Follow Up Visit (FT) Appointment Date:11/16/2023 09:00:00 AM Scheduled Provider: Location:[facility] Appointment Type:Urology CALL PAT FT Appointment Date:11/20/2023 01:15:00 PM Scheduled Provider: Location:[facility] Appointment Type:Urology FT Future Scheduled Tests Radiology* XR Chest 2 Views 05/15/23 * XR Chest 2 Views 05/15/23 [facility] App[facility]ments Appointment Date:10/18/2023 09:00:00 AM Scheduled Provider:Taz THOMAS MD Location:[facility] Appointment Type:URO New Patient Appointment Date:10/18/2023 09:15:00 AM Scheduled Provider:Sukh Harrington DPM [facility] Appointment Type:WC Follow Up Visit (FT) Appointment Date:11/01/2023 02:00:00 PM Scheduled Provider: Location:[facility] Appointment Type:URO Nurse Visit Appointment Date:11/16/2023 09:00:00 AM Scheduled Provider: Location:[facility] Appointment Type:Urology CALL PAT FT Appointment Date:11/20/2023 01:15:00 PM Scheduled Provider: Location:[facility] Appointment Type:Urology FT Future Scheduled Tests Radiology* XR Chest 2 Views 05/15/23 * XR Chest 2 Views 05/15/23 [facility] Evaluation + Plan note Future Appointments Appointment Date:11/01/2023 02:00:00 PM Scheduled Provider: Location:[facility] Appointment Type:URO Nurse Visit Appointment Date:11/16/2023 09:00:00 AM Scheduled Provider: Location:[facility] Appointment Type:Urology CALL PAT FT Appointment Date:11/20/2023 12:00:00 PM Scheduled Provider: Location:[facility] Appointment Type:Urology FT Appointment Date:11/20/2023 01:15:00 PM Scheduled Provider: Location:[facility] Appointment Type:Urology FT Future Scheduled Tests Radiology* XR Chest 2 Views 05/15/23 * XR Chest 2 Views 05/15/23 [facility] Evaluation + Plan note Future Appointments Appointment Date:11/16/2023 09:00:00 AM Scheduled Provider: Location:[facility] Appointment Type:Urology CALL PAT FT Appointment Date:11/20/2023 12:00:00 PM Scheduled Provider: Location:[facility] Appointment Type:Urology FT Appointment Date:11/20/2023 01:15:00 PM Scheduled Provider: Location:[facility] Appointment Type:Urology FT Future Scheduled Tests Radiology* XR Chest 2 Views 05/15/23 * XR Chest 2 Views 05/15/23 [facility] Evaluation + Plan note Future Appointments Appointment Date:12/15/2023 01:30:00 PM Scheduled Provider: Location:[facility] Appointment Type:URO Nurse Visit Appointment Date:12/19/2023 01:00:00 PM Scheduled Provider:Smooth Harrington DPM [facility] Appointment Type:WC Follow Up Visit (FT) Appointment Date:12/20/2023 09:00:00 AM Scheduled Provider:Sukh Harrington DPM Location[facility] Appointment Type:WC Follow Up Visit (FT) Appointment Date:01/31/2024 10:30:00 AM Scheduled Provider: Location:[facility] Appointment Type:Urology CALL PAT FT Appointment Date:02/05/2024 01:15:00 PM Scheduled Provider: Location:[facility] Appointment Type:Urology FT Future Scheduled Tests Radiology* XR Chest 2 Views 05/15/23 * XR Chest 2 [facility] 05/15/23 [facility] Appointment Date:12/19/2023 01:00:00 PM Scheduled Provider:Smooth Harrington DPM [facility] Appointment Type:WC Follow Up Visit (FT) Appointment Date:12/20/2023 11:15:00 AM Scheduled Provider:Sukh Harrington DPM [facility] Appointment Type:WC Follow Up Visit (FT) Appointment Date:01/12/2024 01:00:00 PM Scheduled Provider: Location:[facility] Appointment Type:URO Nurse Visit Appointment Date:01/31/2024 10:30:00 AM Scheduled Provider: Location:[facility] Appointment Type:Urology CALL PAT FT Appointment Date:02/05/2024 01:15:00 PM Scheduled Provider: Location:[facility] Appointment Type:Urology FT Future Scheduled Tests Radiology* XR Chest 2 Views 05/15/23 * XR Chest 2 Views 05/15/23 [facility] Evaluation + Plan note Future Appointments Appointment Date:12/26/2023 01:45:00 PM Scheduled Provider:Smooth Harrington DPM [facility] Appointment Type:WC Follow Up Visit (FT) Appointment Date:01/12/2024 01:00:00 PM Scheduled Provider: Location:[facility] Appointment Type:URO Nurse Visit Appointment Date:01/31/2024 10:30:00 AM Scheduled Provider: Location:[facility] Appointment Type:Urology CALL PAT FT Appointment Date:02/05/2024 01:15:00 PM Scheduled Provider: Location:[facility] Appointment Type:Urology FT Future Scheduled Tests Radiology* XR Chest 2 Views 05/15/23 * XR Chest 2 [facility] 05/15/[facility] Appointment Date:01/02/2024 03:45:00 PM Scheduled Provider:Smooth Harrington DPM [facility] Appointment Type:WC Follow Up Visit (FT) Appointment Date:01/12/2024 01:00:00 PM Scheduled Provider: Location:[facility] Appointment Type:URO Nurse Visit Appointment Date:01/31/2024 10:30:00 AM Scheduled Provider: Location:[facility] Appointment Type:Urology CALL PAT FT Appointment Date:02/05/2024 01:15:00 PM Scheduled Provider: Location:[facility] Appointment Type:Urology FT Future Scheduled Tests Radiology* XR Chest 2 Views 05/15/23 * XR Chest 2 Views 05/15/23 [facility] App[facility]ments Appointment Date:01/09/2024 02:45:00 PM Scheduled Provider:Smooth Harrington DPM [facility] Appointment Type:WC Follow Up Visit (FT) Appointment Date:01/12/2024 01:00:00 PM Scheduled Provider: Location:[facility] Appointment Type:URO Nurse Visit Appointment Date:01/31/2024 10:30:00 AM Scheduled Provider: Location:[facility] Appointment Type:Urology CALL PAT FT Appointment Date:02/05/2024 01:15:00 PM Scheduled Provider: Location:[facility] Appointment Type:Urology FT Future Scheduled Tests Radiology* XR Chest 2 Views 05/15/23 * XR Chest 2 Views 05/15/23 [facility] App[facility]ments Appointment Date:01/17/2024 10:00:00 AM Scheduled Provider:Sukh Harrington DPM [facility] Appointment Type:WC Follow Up Visit (FT) Appointment Date:01/31/2024 10:30:00 AM Scheduled Provider: Location:[facility] Appointment Type:Urology CALL PAT FT Appointment Date:02/05/2024 01:15:00 PM Scheduled Provider: Location:[facility] Appointment Type:Urology FT Future Scheduled Tests Radiology* XR Chest 2 Views 05/15/23 * XR Chest 2 Views 05/15/23 [facility] Evaluation + Plan note Future Appointments Appointment Date:01/23/2024 01:00:00 PM Scheduled Provider:Smooth Harrington DPM [facility] Appointment Type:WC Follow Up Visit (FT) Appointment Date:01/31/2024 10:30:00 AM Scheduled Provider: Location:[facility] Appointment Type:Urology CALL PAT FT Appointment Date:02/05/2024 01:15:00 PM Scheduled Provider: Location:[facility] Appointment Type:Urology FT Future Scheduled Tests Radiology* XR Chest 2 Views 05/15/23 * XR Chest 2 [facility] 05/15/23 [facility] App[facility]ments Appointment Date:01/31/2024 09:45:00 AM Scheduled Provider:Sukh Harrington DPM [facility] Appointment Type:WC Follow Up Visit (FT) Appointment Date:01/31/2024 10:30:00 AM Scheduled Provider: Location:[facility] Appointment Type:Urology CALL PAT FT Appointment Date:02/05/2024 01:15:00 PM Scheduled Provider: Location:[facility] Appointment Type:Urology FT Future Scheduled Tests Radiology* XR Chest 2 Views 05/15/23 * XR Chest 2 Views 05/15/23 [facility] App[facility]ments Appointment Date:02/05/2024 01:00:00 PM Scheduled Provider: Location:[facility] Appointment Type:Urology FT Appointment Date:02/14/2024 10:15:00 AM Scheduled Provider:Sukh Harrington DPM [facility] Appointment Type:WC Follow Up Visit (FT) Future Scheduled Tests Radiology* XR Chest 2 Views 05/15/23 * XR Chest 2 Views 05/15/23 [facility] App[facility]ments Appointment Date:02/14/2024 08:30:00 AM Scheduled Provider: Location:[facility] Appointment Type:URO Nurse Visit Appointment Date:02/14/2024 10:15:00 AM Scheduled Provider:Sukh Harrington DPM [facility] Appointment Type:WC Follow Up Visit (FT) Appointment Date:02/28/2024 07:45:00 AM Scheduled Provider:Taz THOMAS MD Location:[facility] Appointment Type:URO Office Visit Future Scheduled Tests Radiology* XR Chest 2 Views 05/15/23 * XR Chest 2 Views 05/15/23 [facility] App[facility]ments Appointment Date:02/14/2024 08:30:00 AM Scheduled Provider: Location:[facility] Appointment Type:URO Nurse Visit Appointment Date:02/28/2024 07:45:00 AM Scheduled Provider:Taz THOMAS MD Location:[facility] Appointment Type:URO Office Visit Appointment Date:02/28/2024 10:45:00 AM Scheduled Provider:Sukh Harrington DPM [facility] Appointment Type:WC Follow Up Visit (FT) Future Scheduled Tests Radiology* XR Chest 2 Views 05/15/23 * XR Chest 2 Views 05/15/23 [facility] Evaluation + Plan note Future Appointments Appointment Date:02/15/2024 08:30:00 AM Scheduled Provider: Location:[facility] Appointment Type:URO Nurse Visit Appointment Date:02/28/2024 07:45:00 AM Scheduled Provider:Taz THOMAS MD Location:[facility] Appointment Type:URO Office Visit Appointment Date:02/28/2024 10:45:00 AM Scheduled Provider:Sukh Harrington DPM [facility] Appointment Type:WC Follow Up Visit (FT) Future Scheduled Tests Radiology* XR Chest 2 Views 05/15/23 * XR Chest 2 Views 05/15/23 [facility] Evaluation + Plan note Future Appointments Appointment Date:02/28/2024 07:45:00 AM Scheduled Provider:Taz THOMAS MD Location:[facility] Appointment Type:URO Office Visit Appointment Date:02/28/2024 10:45:00 AM Scheduled Provider:Sukh Harrington DPM [facility] Appointment Type:WC Follow Up Visit (FT) Future Scheduled Tests Radiology* XR Chest 2 Views 05/15/23 * XR Chest 2 Views 05/15/23 [facility] Evaluation + Plan note Future Appointments Appointment Date:03/06/2024 10:45:00 AM Scheduled Provider:Sukh Harrington DPM [facility]oint[facility] Type:WC Follow Up Visit (FT) Appointment Date:09/04/2024 03:15:00 PM Scheduled Provider:Taz THOMAS MD Location:[facility] Appointment Type:URO Office Visit Future Scheduled Tests Laboratory* Basic Metabolic Panel 02/28/24 Radiology* XR Chest 2 Views 05/15/23 * XR Chest 2 Views 05/15/23 [facility] Evaluation + Plan note Future Appointments Appointment Date:03/13/2024 10:30:00 AM Scheduled Provider:Sukh Harrington DPM [facility] Appoint[facility] Type:WC Follow Up Visit (FT) Appointment Date:09/04/2024 03:15:00 PM Scheduled Provider:Taz THOMAS MD Location:[facility] Appointment Type:URO Office Visit Future Scheduled Tests Laboratory* Basic Metabolic Panel 02/28/24 Radiology* XR Chest 2 Views 05/15/23 * XR Chest 2 [facility] 05[facility]15/23 [facility] App[facility]ments Appointment Date:03/13/2024 10:30:00 AM Scheduled Provider:Sukh Harrington DPM [facility] Appoint[facility] Type:WC Follow Up Visit (FT) Appointment Date:09/04/2024 03:15:00 PM Scheduled Provider:Taz THOMAS MD Location:[facility] Appointment Type:URO Office Visit Future Scheduled Tests Radiology* XR Chest 2 Views 05/15/23 * XR Chest 2 Views 05/15/23 [facility] App[facility]ments Appointment Date:09/04/2024 03:15:00 PM Scheduled Provider:Taz THOMAS MD Location:[facility] Appointment Type:URO Office Visit [facility] Evaluation note* Diagnosis Onset Date Resolution Status Edema acuteHypertensionacuteHypoxemiaacuteVolume overloadacute [facility] Work Phone: evaluation note* Diagnosis Onset Date Resolution Status Acute on chronic respiratory failure wit h hypoxia and hypercapnia acuteEdemaacuteHypertensionacuteHypertensive urgencyacuteHypoxemiaacuteObesity hypoventilation syndromeacuteObstructive sleep apneaacuteRespiratory failure acuteRight heart failureacuteVolume overloadacute [facility] Work Phone: Evaluation note* Diagnosis Onset Date Resolution Status Acute respiratory distress acuteCHF (congestive heart failure)acuteCOPD (chronic obstructive pulmonary disease)acuteLymphedemaacute [facility] Work Phone: evaluation note* Diagnosis Onset Date Resolution Status Acute on chronic respiratory failure wit h hypoxia and hypercapnia acuteAcute respiratory distressacuteAKI (acute kidney injury)acuteCHF (congestive heart failure)acuteCKD (chronic kidney disease) stage 3, GFR 30-59 ml/minacuteCOPD (chronic obstructive pulmonary disease)acuteDiabetes mellitus, type 2acuteHyperkalemiaacuteHypertensionacuteLymphedemaacuteObesity hypoventilation syndromeacuteUrine retentionacute [facility] Work Phone: evaluation note* Diagnosis Onset Date Resolution Status CHF (congestive heart failure) acuteCKD (chronic kidney disease) stage 3, GFR 30-59 ml/minacuteCOPD (chronic obstructive pulmonary disease)acuteDiabetes mellitus, type 2acuteHypertension acuteLymphedemaacuteObesity hypoventilation syndromeacuteUrine retentionacute Acute on chronic respiratory failure with hypoxia and hypercapniaresolvedAcute respiratory distressresolvedAKI (acute kidney injury)resolvedHyperkalemia resolved(HFpEF) heart failure with preserved ejection fractionacuteAcute kidney injury superimposed on CKDacuteCHF (congestive heart failure)acuteChronic respiratory failure with hypercapniaacuteCKD (chronic kidney disease) stage 3, GFR 30-59 ml/minacuteCOPD (chronic obstructive pulmonary disease)acuteDiabetes mellitus, type 2acuteDiastolic heart failureacuteEdemaacuteHypernatremiaacute [id number] alkalosis with respiratory acidosisacuteObesity hypoventilation syndromeacuteType 2 diabetes mellitus with diabetic chronic kidney diseaseacuteUrine retentionacute Hyperkalemiaresolved 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, unspecified proliferative retinopathy type ([facility]/HCC)- Primary documented in this encounter [facility] HealthcareEvaluation note* Diagnosis Encounter for Medicare annual wellness exam- Primary Type 2 diabetes mellitus with hyperglycemia, without long-term current use of insulin ([facility]) RLS (restless legs syndrome) Restless legs syndrome (RLS) Chronic hypoxemic respiratory failure ([facility]) Chronic respiratory failure Stage 3b chronic kidney disease (HCC) ([facility]) 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 Morbid obesity ([facility]) Morbid obesity BMI 40.0-44.9, adult ([facility]) Other diabetic neurological complication associated with type 2 diabetes mellitus ([facility]) TC (obstructive sleep apnea) Obstructive sleep apnea (adult) (pediatric) Restless leg syndrome Restless legs syndrome (RLS) Acute on chronic respiratory failure with hypoxia and hypercapnia ([facility]) Obesity hypoventilation syndrome ([facility]) Obesity hypoventilation syndrome Hypertension, unspecified type ([facility]) Varicose veins of both lower extremities, unspecified whether complicated Gastroesophageal reflux disease, unspecified whether esophagitis present 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 ([facility]) Mixed hyperlipidemia ([facility]) Mixed hyperlipidemia Long-term insulin use ([facility]) Type 2 diabetes mellitus with hyperglycemia, with long-term current use of insulin ([facility])- Primary Chronic cough Cough Chest wall pain Painful respiration Non-recurrent acute serous otitis media of right ear documented in this encounter [facility] HealthcareEvaluation note* Diagnosis Encounter for Medicare annual wellness exam- Primary Type 2 diabetes mellitus with hyperglycemia, without long-term current use of insulin ([facility]) RLS (restless legs syndrome) Restless legs syndrome (RLS) Chronic hypoxemic respiratory failure ([facility]) Chronic respiratory failure Stage 3b chronic kidney disease (HCC) ([facility] 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 Morbid obesity ([facility]) Morbid obesity BMI 40.0-44.9, adult ([facility]) Other diabetic neurological complication associated with type 2 diabetes mellitus (CMS/HCC) TC (obstructive sleep apnea) Obstructive sleep apnea (adult) (pediatric) Restless leg syndrome Restless legs syndrome (RLS) Acute on chronic respiratory failure with hypoxia and hypercapnia (CMS/HCC) Obesity hypoventilation syndrome ([facility]/HCC) Obesity hypoventilation syndrome Hypertension, unspecified type (CMS/HCC) Varicose veins of both lower extremities, unspecified whether complicated Gastroesophageal reflux disease, unspecified whether esophagitis present 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 ([facility] Mixed hyperlipidemia ([facility] Mixed hyperlipidemia Long-term insulin use ([facility]) Acute pain of right shoulder- Primary Chronic hypoxemic respiratory failure (CMS/[facility]) Chronic respiratory failure Hypertension, unspecified type ([facility]) BMI 40.0-44.9, adult ([facility]) Morbid obesity ([facility]) Morbid obesity Type 2 diabetes mellitus with hyperglycemia, with long-term current use of insulin ([facility]) documented in this encounter [facility] HealthcareEvaluation note* Diagnosis Encounter for Medicare annual wellness exam- Primary Type 2 diabetes mellitus with hyperglycemia, without long-term current use of insulin ([facility]) RLS (restless legs syndrome) Restless legs syndrome (RLS) Chronic hypoxemic respiratory failure ([facility]) Chronic respiratory failure Stage 3b chronic kidney disease (HCC) ([facility]) 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 Morbid obesity ([facility]) Morbid obesity BMI 40.0-44.9, adult ([facility]) Other diabetic neurological complication associated with type 2 diabetes mellitus ([facility]) TC (obstructive sleep apnea) Obstructive sleep apnea (adult) (pediatric) Restless leg syndrome Restless legs syndrome (RLS) Acute on chronic respiratory failure with hypoxia and hypercapnia (CMS/HCC) Obesity hypoventilation syndrome ([facility]/HCC) Obesity hypoventilation syndrome Hypertension, unspecified type ([facility]) Varicose veins of both lower extremities, unspecified whether complicated Gastroesophageal reflux disease, unspecified whether esophagitis present 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 (CMS/HCC) Mixed hyperlipidemia ([facility]/HCC) Mixed hyperlipidemia Long-term insulin use ([facility]) Difficulty walking- Primary Difficulty in walking Acute on chronic respiratory failure with hypoxia and hypercapnia ([facility]) Hypertension, unspecified type ([facility]) Type 2 diabetes mellitus with hyperglycemia, with long-term current use of insulin ([facility]) Morbid obesity ([facility]) Morbid obesity BMI 40.0-44.9, adult ([facility]) Type 2 diabetes mellitus with hyperglycemia, with long-term current use of insulin ([facility]) documented in this encounter [facility] HealthcareEvaluation note* Diagnosis Encounter for Medicare annual wellness exam- Primary Type 2 diabetes mellitus with hyperglycemia, without long-term current use of insulin ([facility]) RLS (restless legs syndrome) Restless legs syndrome (RLS) Chronic hypoxemic respiratory failure ([facility]) Chronic respiratory failure Stage 3b chronic kidney disease (HCC) ([facility]) 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 Morbid obesity ([facility]) Morbid obesity BMI 40.0-44.9, adult ([facility]) Other diabetic neurological complication associated with type 2 diabetes mellitus ([facility]) TC (obstructive sleep apnea) Obstructive sleep apnea (adult) (pediatric) Restless leg syndrome Restless legs syndrome (RLS) Acute on chronic respiratory failure with hypoxia and hypercapnia ([facility]) Obesity hypoventilation syndrome ([facility] Obesity hypoventilation syndrome Hypertension, unspecified type ([facility] Varicose veins of both lower extremities, unspecified whether complicated Gastroesophageal reflux disease, unspecified whether esophagitis present 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 ([facility]) Mixed hyperlipidemia ([facility] Mixed hyperlipidemia Long-term insulin use ([facility]) Type 2 diabetes mellitus with hyperglycemia, with long-term current use of insulin ([facility] Primary Insulin long-term use ([facility]) Encounter for long-term (current) use of insulin Vitamin D deficiency Encounter for dietary consultation Hyperlipemia, mixed ([facility] Mixed hyperlipidemia Primary hypertension ([facility]) Unspecified essential hypertension Class 2 severe obesity due to excess calories with serious comorbidity and body mass index (BMI) of38.0 to 38.9 in adult ([facility]) documented in this encounter [facility] HealthcareEvaluation note* Diagnosis Encounter for Medicare annual wellness exam- Primary Type 2 diabetes mellitus with hyperglycemia, without long-term current use of insulin ([facility]) RLS (restless legs syndrome) Restless legs syndrome (RLS) Chronic hypoxemic respiratory failure ([facility]) Chronic respiratory failure Stage 3b chronic kidney disease (HCC) ([facility] 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 Morbid obesity ([facility]) Morbid obesity BMI 40.0-44.9, adult ([facility]) Other diabetic neurological complication associated with type 2 diabetes mellitus ([facility]) TC (obstructive sleep apnea) Obstructive sleep apnea (adult) (pediatric) Restless leg syndrome Restless legs syndrome (RLS) Acute on chronic respiratory failure with hypoxia and hypercapnia ([facility]) Obesity hypoventilation syndrome ([facility]) Obesity hypoventilation syndrome Hypertension, unspecified type ([facility]) Varicose veins of both lower extremities, unspecified whether complicated Gastroesophageal reflux disease, unspecified whether esophagitis present 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 ([facility]) Mixed hyperlipidemia ([facility]) Mixed hyperlipidemia Long-term insulin use ([facility]) 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, unspecified proliferative retinopathy type ([facility])- Primary documented in this encounter [facility] HealthcareEvaluation note* Diagnosis 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, unspecified proliferative retinopathy type ([facility])- Primary 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1 diabetes mellitus ([facility]) documented in this encounter [facility] HealthcareEvaluation note* Diagnosis 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, unspecified proliferative retinopathy type ([facility])- Primary documented in this encounter [facility] HealthcareEvaluation note* Diagnosis Encounter for Medicare annual wellness exam- Primary Type 2 diabetes mellitus with hyperglycemia, without long-term current use of insulin ([facility]) RLS (restless legs syndrome) Restless legs syndrome (RLS) Chronic hypoxemic respiratory failure ([facility]) Chronic respiratory failure Stage 3b chronic kidney disease (HCC) ([facility] 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 Morbid obesity ([facility]) Morbid obesity BMI 40.0-44.9, adult ([facility]) Other diabetic neurological complication associated with type 2 diabetes mellitus ([facility]) TC (obstructive sleep apnea) Obstructive sleep apnea (adult) (pediatric) Restless leg syndrome Restless legs syndrome (RLS) Acute on chronic respiratory failure with hypoxia and hypercapnia ([facility]) Obesity hypoventilation syndrome ([facility]) Obesity hypoventilation syndrome Hypertension, unspecified type ([facility]) Varicose veins of both lower extremities, unspecified whether complicated Gastroesophageal reflux disease, unspecified whether esophagitis present 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 ([facility] Mixed hyperlipidemia ([facility]) Mixed hyperlipidemia Long-term insulin use ([facility]) documented in this encounter [facility] HealthcareEvaluation note* Diagnosis Encounter for Medicare annual wellness exam- Primary Type 2 diabetes mellitus with hyperglycemia, without long-term current use of insulin ([facility]) RLS (restless legs syndrome) Restless legs syndrome (RLS) Chronic hypoxemic respiratory failure ([facility]) Chronic respiratory failure Stage 3b chronic kidney disease (HCC) ([facility] 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 Morbid obesity ([facility]) Morbid obesity BMI 40.0-44.9, adult ([facility]) Other diabetic neurological complication associated with type 2 diabetes mellitus ([facility]) TC (obstructive sleep apnea) Obstructive sleep apnea (adult) (pediatric) Restless leg syndrome Restless legs syndrome (RLS) Acute on chronic respiratory failure with hypoxia and hypercapnia ([facility]) Obesity hypoventilation syndrome ([facility]) Obesity hypoventilation syndrome Hypertension, unspecified type ([facility] Varicose veins of both lower extremities, unspecified whether complicated Gastroesophageal reflux disease, unspecified whether esophagitis present 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 ([facility] Mixed hyperlipidemia ([facility]) Mixed hyperlipidemia Long-term insulin use ([facility] Type 2 diabetes mellitus with hyperglycemia, with long-term current use of insulin ([facility] Primary Insulin long-term use ([facility]) Encounter for long-term (current) use of insulin Vitamin D deficiency Encounter for dietary consultation Hyperlipemia, mixed ([facility]) Mixed hyperlipidemia Primary hypertension ([facility]) Unspecified essential hypertension documented in this encounter [facility] HealthcareEvaluation note* Diagnosis Encounter for Medicare annual wellness exam- Primary Type 2 diabetes mellitus with hyperglycemia, without long-term current use of insulin ([facility]) RLS (restless legs syndrome) Restless legs syndrome (RLS) Chronic hypoxemic respiratory failure ([facility]) Chronic respiratory failure Stage 3b chronic kidney disease (HCC) ([facility]) 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 Morbid obesity ([facility]) Morbid obesity BMI 40.0-44.9, adult ([facility]) Other diabetic neurological complication associated with type 2 diabetes mellitus TC (obstructive sleep apnea) Obstructive sleep apnea (adult) (pediatric) Restless leg syndrome Restless legs syndrome (RLS) Acute on chronic respiratory failure with hypoxia and hypercapnia ([facility]) Obesity hypoventilation syndrome ([facility]) Obesity hypoventilation syndrome Hypertension, unspecified type ([facility]) Varicose veins of both lower extremities, unspecified whether complicated Gastroesophageal reflux disease, unspecified whether esophagitis present 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 Mixed hyperlipidemia ([facility]) Mixed hyperlipidemia Long-term insulin use ([facility]) Chronic hypoxemic respiratory failure ([facility])- Primary Chronic respiratory failure Acute cough Chest congestion Other symptoms involving respiratory system and chest Type 2 diabetes mellitus with hyperglycemia, with long-term current use of insulin ([facility]) Long-term insulin use ([facility]) Difficulty walking Difficulty in walking Leg weakness, bilateral Muscle weakness (generalized) BMI 35.0-35.9,adult Morbid obesity ([facility]) Morbid obesity Type 2 diabetes mellitus with diabetic chronic kidney disease ([facility]) Chronic kidney disease, stage 3b (HCC) ([facility]) Essential (primary) hypertension ([facility]) Unspecified essential hypertension Acquired absence of left foot ([facility]) Need for immunization against influenza Need for prophylactic vaccination and inoculation against influenza Need for pneumococcal vaccination Need for prophylactic vaccination against streptococcus pneumoniae (pneumococcus) documented in this encounter [facility] HealthcareEvaluation note* Diagnosis Encounter for Medicare annual wellness exam- Primary Type 2 diabetes mellitus with hyperglycemia, without long-term current use of insulin ([facility]) RLS (restless legs syndrome) Restless legs syndrome (RLS) Chronic hypoxemic respiratory failure ([facility]) Chronic respiratory failure Stage 3b chronic kidney disease (HCC) ([facility] 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 Morbid obesity ([facility]) Morbid obesity BMI 40.0-44.9, adult ([facility]) Other diabetic neurological complication associated with type 2 diabetes mellitus TC (obstructive sleep apnea) Obstructive sleep apnea (adult) (pediatric) Restless leg syndrome Restless legs syndrome (RLS) Acute on chronic respiratory failure with hypoxia and hypercapnia ([facility]) Obesity hypoventilation syndrome ([facility]) Obesity hypoventilation syndrome Hypertension, unspecified type ([facility]) Varicose veins of both lower extremities, unspecified whether complicated Gastroesophageal reflux disease, unspecified whether esophagitis present 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 Mixed hyperlipidemia ([facility]) Mixed hyperlipidemia Long-term insulin use ([facility]) Primary osteoarthritis of both knees- Primary Type 2 diabetes mellitus with hyperglycemia, with long-term current use of insulin ([facility]) documented in this encounter [facility] HealthcareEvaluation note* Diagnosis Encounter for Medicare annual wellness exam- Primary Type 2 diabetes mellitus with hyperglycemia, without long-term current use of insulin ([facility]) RLS (restless legs syndrome) Restless legs syndrome (RLS) Chronic hypoxemic respiratory failure ([facility]) Chronic respiratory failure Stage 3b chronic kidney disease (HCC) ([facility]) 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 Morbid obesity ([facility]) Morbid obesity BMI 40.0-44.9, adult ([facility]) Other diabetic neurological complication associated with type 2 diabetes mellitus TC (obstructive sleep apnea) Obstructive sleep apnea (adult) (pediatric) Restless leg syndrome Restless legs syndrome (RLS) Acute on chronic respiratory failure with hypoxia and hypercapnia ([facility]) Obesity hypoventilation syndrome ([facility]) Obesity hypoventilation syndrome Hypertension, unspecified type ([facility]) Varicose veins of both lower extremities, unspecified whether complicated Gastroesophageal reflux disease, unspecified whether esophagitis present 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 Mixed hyperlipidemia ([facility]) Mixed hyperlipidemia Long-term insulin use ([facility]) Type 2 diabetes mellitus with hyperglycemia, with long-term current use of insulin ([facility] Primary Insulin long-term use ([facility]) Encounter for long-term (current) use of insulin Vitamin D deficiency Encounter for dietary consultation Hyperlipemia, mixed ([facility]) Mixed hyperlipidemia Primary hypertension ([facility]) Unspecified essential hypertension documented in this encounter [facility] HealthcareEvaluation note* Diagnosis Encounter for Medicare annual wellness exam- Primary Type 2 diabetes mellitus with hyperglycemia, without long-term current use of insulin ([facility]) RLS (restless legs syndrome) Restless legs syndrome (RLS) Chronic hypoxemic respiratory failure ([facility]) Chronic respiratory failure Stage 3b chronic kidney disease (HCC) ([facility]) 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 Morbid obesity ([facility]) Morbid obesity BMI 40.0-44.9, adult ([facility]) Other diabetic neurological complication associated with type 2 diabetes mellitus TC (obstructive sleep apnea) Obstructive sleep apnea (adult) (pediatric) Restless leg syndrome Restless legs syndrome (RLS) Acute on chronic respiratory failure with hypoxia and hypercapnia ([facility]) Obesity hypoventilation syndrome ([facility]) Obesity hypoventilation syndrome Hypertension, unspecified type ([facility]) Varicose veins of both lower extremities, unspecified whether complicated Gastroesophageal reflux disease, unspecified whether esophagitis present 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 Mixed hyperlipidemia ([facility]) Mixed hyperlipidemia Long-term insulin use ([facility]) Muscle cramps- Primary Varicose veins of both lower extremities, unspecified whether complicated Type 2 diabetes mellitus with hyperglycemia, with long-term current use of insulin ([facility]) Essential (primary) hypertension ([facility]) Unspecified essential hypertension documented in this encounter [facility] HealthcareEvaluation note* Diagnosis Encounter for Medicare annual wellness exam- Primary Type 2 diabetes mellitus with hyperglycemia, without long-term current use of insulin ([facility]) RLS (restless legs syndrome) Restless legs syndrome (RLS) Chronic hypoxemic respiratory failure ([facility]) Chronic respiratory failure Stage 3b chronic kidney disease (HCC) ([facility] 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 Morbid obesity ([facility]) Morbid obesity BMI 40.0-44.9, adult ([facility]) Other diabetic neurological complication associated with type 2 diabetes mellitus TC (obstructive sleep apnea) Obstructive sleep apnea (adult) (pediatric) Restless leg syndrome Restless legs syndrome (RLS) Acute on chronic respiratory failure with hypoxia and hypercapnia ([facility]) Obesity hypoventilation syndrome ([facility]) Obesity hypoventilation syndrome Hypertension, unspecified type ([facility]) Varicose veins of both lower extremities, unspecified whether complicated Gastroesophageal reflux disease, unspecified whether esophagitis present 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 Mixed hyperlipidemia ([facility]) Mixed hyperlipidemia Long-term insulin use ([facility]) Anxiousness- Primary Anxiety state, unspecified documented in this encounter [facility] HealthcareEvaluation note* Diagnosis Encounter for Medicare annual wellness exam- Primary Type 2 diabetes mellitus with hyperglycemia, without long-term current use of insulin ([facility]) RLS (restless legs syndrome) Restless legs syndrome (RLS) Chronic hypoxemic respiratory failure (HCC) Chronic respiratory failure Stage 3b chronic kidney disease ([facility]) 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 Morbid obesity ([facility]) Morbid obesity BMI 40.0-44.9, adult ([facility]) Other diabetic neurological complication associated with type 2 diabetes mellitus ([facility]) TC (obstructive sleep apnea) Obstructive sleep apnea (adult) (pediatric) Restless leg syndrome Restless legs syndrome (RLS) Acute on chronic respiratory failure with hypoxia and hypercapnia (HCC) Obesity hypoventilation syndrome ([facility]) Obesity hypoventilation syndrome Hypertension, unspecified type [...] use of insulin (HCC) Long-term insulin use ([facility]) Morbid obesity ([facility]) Morbid obesity BMI 36.0-36.9,adult documented in this encounter [facility] HealthcareEvaluation note* Diagnosis Encounter for Medicare annual wellness exam- Primary Type 2 diabetes mellitus with hyperglycemia, without long-term current use of insulin ([facility]) RLS (restless legs syndrome) Restless legs syndrome (RLS) Chronic hypoxemic respiratory failure (HCC) Chronic respiratory failure Stage 3b chronic kidney disease ([facility]) 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 Morbid obesity ([facility]) Morbid obesity BMI 40.0-44.9, adult ([facility]) Other diabetic neurological complication associated with type 2 diabetes mellitus ([facility]) TC (obstructive sleep apnea) Obstructive sleep apnea (adult) (pediatric) Restless leg syndrome Restless legs syndrome (RLS) Acute on chronic respiratory failure with hypoxia and hypercapnia (HCC) Obesity hypoventilation syndrome ([facility]) Obesity hypoventilation syndrome Hypertension, unspecified type Varicose veins of both lower extremities, unspecified whether complicated Gastroesophageal reflux disease, unspecified whether esophagitis present 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 (HCC) Mixed hyperlipidemia Mixed hyperlipidemia Long-term insulin use ([facility]) Hospital discharge follow-up- Primary Other follow-up examination Type 2 diabetes mellitus with hyperglycemia, with long-term current use of insulin ([facility]) Hyperosmolar hyperglycemic state (HHS) ([facility]) Muscle cramps Long-term insulin use ([facility]) Difficulty walking Difficulty in walking Essential (primary) hypertension Unspecified essential hypertension Morbid obesity ([facility]) Morbid obesity BMI 38.0-38.9,adult documented in this encounter [facility] HealthcareEvaluation note* Diagnosis Encounter for Medicare annual wellness exam- Primary Type 2 diabetes mellitus with hyperglycemia, without long-term current use of insulin ([facility]) RLS (restless legs syndrome) Restless legs syndrome (RLS) Chronic hypoxemic respiratory failure (HCC) Chronic respiratory failure Stage 3b chronic kidney disease ([facility]) 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 Morbid obesity ([facility]) Morbid obesity BMI 40.0-44.9, adult ([facility]) Other diabetic neurological complication associated with type 2 diabetes mellitus ([facility]) TC (obstructive sleep apnea) Obstructive sleep apnea (adult) (pediatric) Restless leg syndrome Restless legs syndrome (RLS) Acute on chronic respiratory failure with hypoxia and hypercapnia ([facility]) Obesity hypoventilation syndrome ([facility]) Obesity hypoventilation syndrome Hypertension, unspecified type Varicose veins of both lower extremities, unspecified whether complicated Gastroesophageal reflux disease, unspecified whether esophagitis present 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 ([facility]) Mixed hyperlipidemia Mixed hyperlipidemia Long-term insulin use ([facility]) Grief- Primary Adjustment disorder with depressed mood Anxiousness Anxiety state, unspecified Neck pain Cervicalgia Type 2 diabetes mellitus with hyperglycemia, with long-term current use of insulin ([facility]) Essential (primary) hypertension Unspecified essential hypertension Morbid obesity ([facility]) Morbid obesity BMI 36.0-36.9,adult documented in this encounter [facility] HealthcareEvaluation note* Diagnosis Encounter for Medicare annual wellness exam- Primary Type 2 diabetes mellitus with hyperglycemia, without long-term current use of insulin ([facility]) RLS (restless legs syndrome) Restless legs syndrome (RLS) Chronic hypoxemic respiratory failure (HCC) Chronic respiratory failure Stage 3b chronic kidney disease ([facility]) 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 Morbid obesity ([facility]) Morbid obesity BMI 40.0-44.9, adult ([facility]) Other diabetic neurological complication associated with type 2 diabetes mellitus ([facility]) TC (obstructive sleep apnea) Obstructive sleep apnea (adult) (pediatric) Restless leg syndrome Restless legs syndrome (RLS) Acute on chronic respiratory failure with hypoxia and hypercapnia ([facility]) Obesity hypoventilation syndrome ([facility]) Obesity hypoventilation syndrome Hypertension, unspecified type Varicose veins of both lower extremities, unspecified whether complicated Gastroesophageal reflux disease, unspecified whether esophagitis present 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 (HCC) Mixed hyperlipidemia Long-term insulin use ([facility]) 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, unspecified proliferative retinopathy type (HCC)- Primary 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1 diabetes mellitus (HCC) documented in this encounter [facility] HealthcareEvaluation note* Diagnosis Encounter for Medicare annual wellness exam- Primary Type 2 diabetes mellitus with hyperglycemia, without long-term current use of insulin (HCC) RLS (restless legs syndrome) Restless legs syndrome (RLS) Chronic hypoxemic respiratory failure (HCC) Chronic respiratory failure Stage 3b chronic kidney disease ([facility]) 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 Morbid obesity ([facility]) Morbid obesity BMI 40.0-44.9, adult ([facility]) Other diabetic neurological complication associated with type 2 diabetes mellitus (HCC) TC (obstructive sleep apnea) Obstructive sleep apnea (adult) (pediatric) Restless leg syndrome Restless legs syndrome (RLS) Acute on chronic respiratory failure with hypoxia and hypercapnia (HCC) Obesity hypoventilation syndrome ([facility]) Obesity hypoventilation syndrome Hypertension, unspecified type Varicose veins of both lower extremities, unspecified whether complicated Gastroesophageal reflux disease, unspecified whether esophagitis present 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 [facility] No data available for this section [facility] Discharge instructions No data available for this section [facility] Discharge instructions Additional Instructions Continue oxygen [...] kerlix Please keep previously scheduled appointment with journal clerk in [place]. [facility] Work Phone: Progress note No data available for this section [facility] N[facility] - Outpatient (Routine) - AuthorizedSpecialtyDiagnoses / ProceduresReferred By ContactReferred To ContactPhysical Therapy Diagnoses Difficulty in walking, not elsewhere classified Other symptoms and signs involving the musculoskeletal system Acquired absence of left foot (CMS/HCC) Procedures [place] PHYS THERAPY EVALUATION Mounika Brooke MD [address] [place] [address] Phone: tel: fax: Mone Mcguire, PT [address] [facility] [address] [place] [address] Phone: tel: fax: Referral IDStatusReasonStart DateExpiration DateVisits RequestedVisits [id number] [facility] Healthcare Chief Complaint and Reason for Visit [...] retaining fluid retaining fluid retaining fluid retaining fluidReason for VisitAcute on chronic respiratory failure with hypoxia and hypercapnia Acute respiratory distress AMY (acute kidney injury) CHF (congestive heart failure) CKD (chronic kidney disease) stage 3, GFR 30-59 ml/min COPD (chronic obstructive pulmonary disease) Diabetes mellitus, type 2 Hyperkalemia Hypertension Lymphedema Obesity hypoventilation syndrome Urine retention Chief Complaint retaining fluid retaining fluid retaining fluid retaining fluid e87.5 n18.3Reason for VisitAcute on chronic respiratory failure with hypoxia and hypercapnia Acute respiratory distress AMY (acute kidney injury) CHF (congestive heart failure) CKD (chronic kidney disease) stage 3, GFR 30-59 ml/min COPD (chronic obstructive pulmonary disease) Diabetes mellitus, type 2 Hyperkalemia Hypertension Lymphedema Obesity hypoventilation syndrome Urine retention Chief Complaint retaining fluid retaining fluid retaining fluid retaining fluid e87.5 n18.3 respitory faliure respitory faliure respitory faliureReason for VisitCHF (congestive heart failure) CKD (chronic kidney disease) [...] 2 Diastolic heart failure Edema Hypernatremia Hypertension [id number] Lymphedema Metabolic alkalosis with respiratory acidosis Obesity [...] Active Start: October 06, 2023 End: October 12Devika Hawkins ProviderActiveStart: October 06, 2023 End: October 12, 2023Ifeanyi Leiva ProviderActiveStart: October 06, 2023 End: October 12, 2023Venita Negrete ProviderActiveStart: October 06, 2023 End: October 12Andrzej Villalba ProviderActiveStart: October 06, 2023 End: October 12, 2023 Team Status: Active Member Role Status Dates Mounika Brooke MD Primary Care Provider Active Start: October 07, 2023 Devika Peterson ProviderActiveStart: October 07, 2023 Ifeanyi Leiva Provider, Other ProviderActiveStart: October 07, 2023 Ramos Montez ProviderActiveStart: October 07, 2023 Team Status: Active Member Role Status Dates Mounika Brooke MD Primary Care Provider Active Start: October 08, 2023 Jason Mercado DOEmercy ProviderActiveStart: October 08, 2023 Tera Nevarez DOAdmit ProviderActiveStart: October 08, 2023 Andrzej Negrete Provider, Other ProviderActiveStart: October 08, 2023 Yesi Murphy MDOther ProviderActiveStart: October 08, 2023 Team Status: Active Member Role Status Dates Mounika Brooke MD Primary Care Provider Active Start: October 09, 2023 Jason Mercado DOEmergency ProviderActiveStart: October 09, 2023 Tera Nevarez , DOAdmit ProviderActiveStart: October 09, 2023 Hood Zacarias MDOther ProviderActiveStart: October 09, 2023 Yesi Murphy MDOther ProviderActiveStart: October 09, 2023 Gigi Cooper MDAttending ProviderActiveStart: October 09, 2023 Team Status: Active Member Role Status Dates Reid Brooke DO Primary Care Provider Active Team Status: Active Member Role Status Dates Reid Brooke DO Primary Care Provider Active Devika Viadl ProviderActiveMictrisha Arrington DOAdmit Provider, Attending ProviderActive Team Status: Active Member Role Status Dates Migue Stroud MD Primary Care Provider Active Team Status: Inactive Member Role Status Dates Art Kirby DO Emergency Provider Active Alban Arrington DOAdmit Provider, Attending ProviderActiveAmrik De Guzman MD Other ProviderActiveLeni Youngcommunity hospitalmckenna Care ProviderActiveTeam Member RelationshipSpecialtyStart DateEnd Date Mounika Brooke MD [address] [place] [address] PCP - [facility]07/27/23 Team Status: Active Member Role Status Dates Mounika Brooke MD Primary Care Provider Active Start: October 06, 2023 Jason Mercado DOEmerdennys ProviderActiveStart: October 06, 2023 Tera Nevarez DOAdmit Provider, Attending ProviderActiveStart: October 06, 2023 Team Status: Inactive Member Role Status Dates Mounika Brooke MD Primary Care Provider Active Start: October 13, 2023 End: October 13Andrzej Villalba ProviderActiveStart: October 13, 2023 End: October 13, 2023Team MemberRelationshipSpecialtyStart DateEnd Date Mounika Brooke MD [address] [place] [address] PCP - [facility] Medicine10/23/23 [place] [id number] [facility] [address] [place], [place] [id number] PhysicianNephrology10/31/23 Team Status: Inactive Member Role Status Dates Mounika Brooke MD Primary Care Provider Active Start: November 11, 2023 End: November 17, 2023Ifeanyi Leiva ProviderActiveStart: November 11, 2023 End: November 17, 2023Hood Zacarias MDOther ProviderActiveStart: November 11, 2023 End: November 17, 2023Katelin Alexander NP-COther ProviderActiveStart: November 11, 2023 End: November 16demetrio Story MDOther ProviderActiveStart: November 11, 2023 End: November 17, 2023Immanuel Pozo MDOther ProviderActiveStart: November 11, 2023 End: November 17, 2023Sucastro Guevara MDOther ProviderActiveStart: November 11, 2023 End: November 16boogie Cooper MDOther ProviderActiveStart: November 11, 2023 End: November 17, 2023Andrzej Villegas ProviderActiveStart: November 11, 2023 End: November 17, 2023 Team Status: Active Member Role Status Dates Mounika Brooke MD Primary Care Provider Active Start: November 11, 2023 Ifeanyi Leiva Provider, Attending Provider, Other ProviderActive Start: November 11, 2023 Team Status: Active Member Role Status Dates Mounika Brooke MD Primary Care Provider Active Start: November 12, 2023 Tera Nevarez , DOAdmit ProviderActiveStart: November 12, 2023 Durga Loza MDOther ProviderActiveStart: November 12, 2023 Hood Zacarias MDOther ProviderActiveStart: November 12, 2023 Katelin Alexander , ENTRY LEVEL ACCOUNT MANAGER-COther ProviderActiveStart: November 12, 2023 Bladimir Story MDAttending Provider, Other ProviderActiveStart: November 12, 2023 Immanuel Pozo MDOther ProviderActiveStart: November 12, 2023 Satnam Guevara MDOther ProviderActiveStart: November 12, 2023 Gigi Cooper MDOther ProviderActiveStart: November 12, 2023 Team MemberRelationshipSpecialtyStart DateEnd Date Mounika Brooke MD [address] [place] [address] PCP - [facility] Medicine10/23/23 [place] [id number] [facility] [address] [place], [place] [id number] PhysicianNephrology10/31/23Team MemberRelationshipSpecialtyStart DateEnd Date Mounika Brooke MD [address] [place] [address] [facility]10/23/23 [place] [address] [facility] [address] [place] [address] PhysicianNephrology10/31/23Team MemberRelationshipSpecialtyStart DateEnd Date Mounika Brooke MD [address] [place] [address] PCP - [facility]07/27/23Team MemberRelationshipSpecialtyStart DateEnd Date Mounika Brooke MD [address] [place] [address] PCP - [facility]07/27/23Team MemberRelationshipSpecialtyStart DateEnd Date Mounika Brooke MD [address] [place] [address] PCP - [facility]07/27/23 Mounika Brooke MD [address] [place] [address] PCP - [facility]/Te MemberRelationshipSpecialtyStart DateEnd Date Mounika Brooke MD [address] [place] [address] PCP - [facility]07/27/23 Mounika Brooke MD [address] [place] [address] PCP - [facility]/ Jennifer Short [place] [address] [place] [address] Physician [facility]06/24/24Team MemberRelationshipSpecialtyStart DateEnd Date Mounika Brooke MD [address] [place] [address] PCP - [facility]07/27/23 Mounika Brooke MD [address] [place] [address] [facility]/Te MemberRelationshipSpecialtyStart [facility] Date Mounika Brooke MD [address] [place] [address] PCP - [facility]07/27/23 Mounika Brooke MD [address] [place] [address] PCP - [facility] Jennifer Short PA [address] [place] [address] Physician [facility]06/24/24Te MemberRelationshipSpecialtyStart [facility] Date Mounika Brooke MD [address] [place] [address] PCP - [facility]07/27/23 Mounika Brooke MD [address] [place] [address] [facility] Jennifer Short PA [address] [place] [address] Physician AssistantAt[facility] Health [facility]06/24/24Te MemberRelationshipSpecialtyStart [facility] Date Mounika Brooke MD [address] [place] [address] PCP - [facility]07/27/23 Mounika Brooke MD [address] [place] [address] [place] [address]/ Jennifer Short PA [address] [place] [address] Physician [facility]06/24/24Te MemberRelationshipSpecialtyStart [facility] Mounika Brooke MD [address] [place] [address] PCP [facility]07/27/23 Mounika Brooke MD [address] [place] [address] [place] [address] Jennifer Short PA [address] [place] [address] Physician [facility]06/24/24[facility] MemberRelationshipSpecialtyStart [facility] Mounika Brooke MD [address] [place] [address] PCP [facility]07/27/23 Mounika Brooke MD [address] [place] [address] [place] [address] Jennifer Short PA [address] [place] [address] Physician [facility]06/24/24Te MemberRelationshipSpecialtyStart [facility] Mounika Brooke MD [address] [place] [address] PCP - [facility]07/27/23 Mounika Brooke MD [address] [place] [address] PCP - [facility]/08/2411 Jennifer Short PA [address] [place] [address] Physician [facility]06/24/24Te MemberRelationshipSpecialtyStart DateEnd Date Mounika Brooke MD [address] [place] [address] PCP - [facility]07/27/23Team MemberRelationshipSpecialtyStart DateEnd Date Mounika Brooke MD [address] [place] [address] PCP - [facility]07/27/23Team MemberRelationshipSpecialtyStart DateEnd Date Mounika Brooke MD [address] [place] [address] PCP - [facility]07/27/23Team MemberRelationshipSpecialtyStart DateEnd Date Mounika Brooke MD [address] [place] [address] PCP - [facility]07/27/23Team MemberRelationshipSpecialtyStart DateEnd Date Mounika Brooke MD [address] [place] [address] PCP - [facility]07/27/23Te MemberRelationshipSpecialtyStart DateEnd Date Mounika Brooke MD [address] [place] [address] PCP - [facility]07/27/23Te MemberRelationshipSpecialtyStart DateEnd Date Mounika Brooke MD [address] [place] [address] PCP - [facility]07/27/23 Jennifer Short PA [address] [place] [address] Physician [facility]06/24/24Te MemberRelationshipSpecialtyStart DateEnd Date Mounika Brooke MD [address] [place] [address] PCP - [facility]07/27/23 Jennifer Short PA [address] [place] [address] Physician [facility]06/24/24Te MemberRelationshipSpecialtyStart DateEnd Date Mounika Brooke MD [address] [place] [address] PCP [facility]07/27/23 Mounika Brooke MD [address] [place] [address] PCP [facility]11/19/24 Jennifer Short PA [address] [place] [address] Physician Assistantmily Wozkciei82/4/24 Janice Kevin, [facility] Social WorkerAtrium Health [facility]12/04/24Team MemberRelationshipSpecialtyStart DateEnd Date Mounika Brooke MD [address] [place] [address] PCP - [facility]07/27/23 Mounika Brooke MD [address] [place] [address] PCP - [facility]11/19/24 Jennifer Short PA [address] [place] [address] Physician AssistantMiravista Behavioral Health Center Ilvkqccr39/4/24 Janice Kevin, [facility] WorkerAt[facility] Health [facility]’S HospitalTeam MemberRelationshipSpecialtyStart DateEnd Date Mounika Brooke MD [address] [place] [address] PCP - [facility]07/27/23 Mounika Brooke MD [address] [place] [address] PCP - [facility]11/19/24 Jennifer Short PA [address] [place] [address] Physician AssistantAt[facility] Health [facility]06/24/24Team MemberRelationshipSpecialtyStart DateEnd Date Mounika Brooke MD [address] [place] [address] PCP - [facility]07/27/23 Mounika Brooke MD [address] [place] [address] PCP - [facility]11/19/24 Jennifer Short PA [address] [place] [address] Physician [facility]06/24/24Team MemberRelationshipSpecialtyStart DateEnd Mounika Brooke MD [address] [place] [address] PCP - [facility]07/27/23 Mounika Brooke MD [address] [place] [address] PCP - [facility]11/19/24 Jennifer Short PA [address] [place] [address] Physician [facility]06/24/24Team MemberRelationshipSpecialtyStart DateEnd Mounika Brooke MD [address] [place] [address] PCP [facility]07/27/23 Mounika Brooke MD [address] [place] [address] PCP - [facility]11/19/24 Jennifer Short PA [address] [place] [address] Physician AssistantAt[facility] Health [facility]06/24/24Team MemberRelationshipSpecialtyStart DateEnd Mounika Brooke MD [address] [place] [address] PCP - [facility]07/27/23 Mounika Brooke MD [address] [place] [address] PCP - [facility]11/19/24 Jennifer Short PA [address] [place] [address] Physician [facility]06/24/24Te MemberRelationshipSpecialtyStart DateEnd Mounika Brooke MD [address] [place] [address] PCP - [facility]07/27/23 Mounika Brooke MD [address] [place] [address] PCP - [facility]11/19/24 Jennifer Short PA [address] [place] [address] Physician [facility]06/24/24Te MemberRelationshipSpecialtyStart End Mounika Brooke MD [address] [place] [address] PCP - [facility]07/27/23 Mounika Brooke MD [address] [place] [address] PCP - [facility]11/19/24 Jennifer Short PA [address] [place] [address] Physician [facility]06/24/24Te MemberRelationshipSpecialtyStart DateEnd Mounika Brooke MD [address] [place] [address] PCP - [facility]07/27/23 Mounika Brooke MD [address] [place] [address] PCP - [facility]11/19/24 Jennifer Short PA [address] [place] [address] Physician [facility]06/24/24Te MemberRelationshipSpecialtyStart End Mounika Brooke MD [address] [place] [address] PCP - [facility]07/27/23 Mounika Brooke MD [address] [place] [address] PCP - [facility]11/19/24 Jennifer Short PA [address] [place] [address] Physician [facility]06/24/24Te MemberRelationshipSpecialtyStart DateEnd Mounika Brooke MD [address] [place] [address] PCP - [facility] Xalrnyjb76/7/23 Mounika Brooke MD [address] [place] [address] PCP - [facility]11/19/24 Jennifer Short PA [address] [place] [address] Physician AssistantMiravista Behavioral Health Center Wahbeslp01/4/24Team MemberRelationshipSpecialtyStart DateEnd Date Mounika Brooke MD [address] [place] [address] PCP - [facility]07/27/23 Mounika Brooke MD [address] [place] [address] PCP - [facility]11/19/24 Jennifer Short PA [address] [place] [address] Physician AssistantMiravista Behavioral Health Center Wnvuashc84/4/24 Jacqueline Vega, RAFAEL [address] [place] [address] Registered NurseAtrium Health [facility]04/09/25 Janice Kevin LSW [address] [place] [address] Social WorkerMiravista Behavioral Health Center Medicine04/10/25Team MemberRelationshipSpecialtyStart DateEnd Date Mounika Brooke MD [address] [place] [address] PCP [facility]07/27/23 Mounika Brooke MD [address] [place] [address] PCP - [facility]11/19/24 Jennifer Short PA [address] [place] [address] Physician Assistantmily Qvtfmtpq69/4/24 Jacqueline Vega, RN [address] [place] [address] Registered NurseUnitypoint Health-Trinity Regional Medical Centerly Medicine04/09/25 Janice Kevin LSW [address] [place] [address] Social WorkerMiravista Behavioral Health Center Medicine04/10/25Team MemberRelationshipSpecialtyStart DateEnd Date Mounika Brooke MD [address] [place] [address] PCP - GeneralMiravista [facility]al [facility] Center Hdwhrjtn87/7/23 Mounika Brooke MD [address] [place] [address] PCP - [facility]11/19/24 Jennifer Short PA [address] [place] [address] Physician Assistantmily Vdykvlgb06/4/24 Jacqueline Vega, RAFAEL [address] [place] [address] Registered NurseUnitypoint Health-Trinity Regional Medical Centerly Medicine04/09/25 Janice Kevin LSW [address] [place] [address] Social WorkerMiravista Behavioral Health Center Medicine04/10/25Team MemberRelationshipSpecialtyStart DateEnd Date Mounika Brooke MD [address] [place] [address] PCP - [facility]07/27/23 Mounika Brooke MD [address] [place] [address] PCP - [facility]11/19/24 Jennifer Short PA [address] [place] [address] Physician AssistantMiravista Behavioral Health Center Charsjem27/4/24 Jacqueline Vega, RN [address] [place] [address] Registered NurseAt[facility] Health [facility]04/09/25 Janice Kevin LSW [address] [place] [address] Social WorkerAtrium Health [facility]04/10/25Team MemberRelationshipSpecialtyStart DateEnd Date Mounika Brooke MD [address] [place] [address] PCP - [facility]07/27/23 Mounika Brooke MD [address] [place] [address] PCP - [facility]11/19/24 Jennifer Short PA [address] [place] [address] Physician AssistantAt[facility] Health [facility]06/24/24 Jacqueline Vega, RN [address] [place] [address] Registered NurseFamily Medicine04/09/25 Janice Kevin LSW [address] [place] [address] Social WorkerFamily Medicine04/10/25Team MemberRelationshipSpecialtyStart DateEnd Date Mounika Brooke MD [address] [place] [address] PCP - Generalmily Psmzmnqz06/7/23 Mounika Brooke MD [address] [place] [address] PCP [facility]01/20/2412 Mounika Brooke MD [address] [place] [address] PCP - Count Includes [facility]11/19/24 Deann Calles LPN [address] [place] [address] Licensed Practical NurseFamily Medicine Jennifer Short PA [address] [place] [address] Physician AssistantFamily Wscailxk52/4/24 Janice Kevin LSW [address] [place] [address] Social WorkerFamily Medicine Jacqueline Vega, RN [address] [place] [address] Registered NurseFamily Medicine04/09/25 Janice Kevin LSW [address] [place] [address] Social WorkerFamily Medicine04/10/25Team MemberRelationshipSpecialtyStart DateEnd Date Mounika Brooke MD [address] [place] [address] PCP [facility]07/27/23 Mounika Brooke MD [address] [place] [address] PCP [facility]/ Mounika Brooke MD [address] [place] [address] PCP [facility]11/19/24 Jennifer Short PA [address] [place] [address] Physician AssistantMiravista Behavioral Health Center Zvxpircp20/4/24 Janice Kevin LSW [address] [place] [address] Social WorkerAtrium Health [facility] Jacqueline Vega, RN [address] [place] [address] Registered NurseAtrium Health [facility]04/09/25 Janice Kevin LSW [address] [place] [address] Social WorkerAtrium Health [facility]04/10/25 Goals (unrecognized section and content) Goals may [...] section and content) DATE CREATED AUTHOR 10/29/2023 [facility] DATE CREATED AUTHOR AUTHOR'S ORGANIZ ATION 11/30/2023 [facility] DATE CREATED AUTHOR AUTHOR'S ORGANIZ ATION 03/14/2024 [facility] DATE CREATED AUTHOR AUTHOR'S ORGANIZ ATION 06/24/2024 [facility] DATE CREATED AUTHOR AUTHOR'S ORGANIZ ATION 09/05/2024 [facility] DATE CREATED AUTHOR AUTHOR'S ORGANIZ ATION 12/03/2024 [facility] DATE CREATED AUTHOR AUTHOR'S ORGANIZ ATION 12/24/2024 [facility] DATE CREATED AUTHOR AUTHOR'S ORGANIZ ATION 12/25/2024 [facility] DATE CREATED AUTHOR AUTHOR'S ORGANIZ ATION 12/26/2024 [facility] DATE CREATED AUTHOR AUTHOR'S ORGANIZ ATION 01/01/2025 [facility] DATE CREATED AUTHOR AUTHOR'S ORGANIZ ATION 01/17/2025 [facility] DATE CREATED AUTHOR AUTHOR'S ORGANIZ ATION 03/09/2025 [facility] DATE CREATED AUTHOR AUTHOR'S ORGANIZ ATION 03/10/2025 [facility] DATE CREATED AUTHOR AUTHOR'S ORGANIZ ATION 06/07/2025 [facility] DATE CREATED AUTHOR AUTHOR'S ORGANIZ ATION 06/14/2025 [facility] Source Comments (unrecognize d section and content) In the event this informatio n is protected by the [facility] Confidentiality of Alcohol and Drug Abuse Patient Records regulations: The Federal rules restrict any use of the information to criminally investigate or prosecute any alcohol or drug abuse patient.[facility] HospitalIn the event this information is protected by the Federal Confidentiality of Alcohol and Drug Abuse Patient Records regulations: The Federal rules restrict any use of the information to criminally investigate or prosecute any alcohol or drug abuse patient.[facility] HospitalIn the event this information is protected by the Federal Confidentiality of Alcohol and Drug Abuse Patient Records regulations: The Federal rules restrict any use of the information to criminally investigate or prosecute any alcohol or drug abuse patient.[facility] Reason for Visit (unrecogniz ed section and content) ReasonCommentsFollow Up Phone CallPost Discharge F/U - attempt made. No answer. ReasonCommentsRetinal InjectionReasonCommentsMed RefillFallDiabetesReason CommentsShoulder PainER FUReasonCommentsER Follow-upPatient had pneumoniaReason CommentsDiabetesFollow-up06/21/2024 A1C 14%ReasonCommentsFollow-upReasonOnset DojsRediuczgMedcpcuf61/17/2024ReasonCommentsDiabetic Eye ExamDiabetic RetinopathyReasonCommentsLeg PainMedicare Annual Wellness Visit Subsequent OhyaeimxY1Q checkReasonOnset DateCommentsCare Rxnomcebshtl87/09/2024Reason IaormtrrXxikpdviP5GFilxcxObevm DateCommentsCare Wbfmlvitnkmp00/22/2025Reason Onset DateCommentsMed Xzoynk3101/22/2025ReasonOnset DateCommentsCare Coordination 02/05/2025ReasonCommentsHospital Follow-upLeg PainReasonOnset DateCommentsCare Pmqewehyklyp97/04/2025ReasonCommentsMed RefillReasonCommentsDiabetic Eye Exam ReasonCommentsDiabetesFollow-upLAB FOR RECORDS PERTAINING TO PATIENTS WHO ARE [...] BE BASED ON THE PRIMARY CLINICAL RECORDS. [facility] [employer] [facility]. provides no warranty or guarantee of the accuracy or completeness of information in this document.
== END 2025-07-08 14:25 | disposition home or self-care (01) ==
LOC: WC 14:25
PROVIDERS: Visit Provider Physician Assistant
DX: E11.621 Type 2 diabetes mellitus with foot ulcer (principal); L97.422 Non-pressure chronic ulcer of left heel and midfoot with fat layer exposed
CPT/HCPCS: G0463

== ENCOUNTER 2025-07-23 12:49 | Outpatient (OUT) | payer OTHER, SELFPAY ==
--- OUTSIDE RECORDS SUMMARY | 2025-07-23 12:51 | XMS_ITS | Clinical Summary ---
Author Organization [facility] Address [address] [place] [address] Care Team Providers Care Manufacturing Maintenance Technician Name Role Phone Mounika Brooke MD Primary Care Provider [phone] Jennifer Orta Unavailable [phone] Mounika Brooke MD Unavailable Annette Vega RN Unavailable [phone] Janice Kevin SECTIONAL BELT MOLD ASSEMBLER Unavailable Allergies Active AllergyReactionsCriticalityNoted DateCommentsPenicillamineUnknown 4208NxornnndwjjUkuqVrqdxr41/13/2015 Medications MedicationSigDispense QuantityRefillsLast FilledStart DateEnd DateStatus albuterol HFA 90 mcg/act inhaler Inhale 2 puffs every 4 (four) hours if cjbbes603Active Misc. Devices (Cane) misc Indications:Difficulty walking1 each [...] TIMES PER DAY12/21/2024tive Blood Glucose Monitoring Suppl (Skully Helmets Verio Flex System) w/Device kit USE DIRECTED TO TEST BLOOD SUGAR12/24/2024tive B-D UF III MINI PEN NEEDLES 31G X 5 MM [facility] [place] USE TO INJECT INSULIN UP TO 3 [...] tablet (800 mg) before bedtime. 90 tablet ctive insulin glargine (Lantus SoloStar) 100 UNIT/ML pen Indications:Type 2 diabetes mellitus with hyperglycemia, with long-term current use of insulin (HCC)Inject 80 Units under the skin at bedtime 3 mL 121/ctive insulin aspart, with niacinamide, (Fiasp FlexTouch) 100 UNIT/ML injection Indications:Type 2 diabetes mellitus with hyperglycemia, with long-term current use of insulin (HCC)Inject 40 Units under the skin in the morning and 40 Units at noon and 40 Units in the evening. Inject with meals. 108 mL /6Active glucose blood (Accu-Chek Madelin Plus) test strip Indications:Type 2 diabetes mellitus with hyperglycemia, with long-term current use of insulin (HCC)USE THREE TIMES A DAY TO TEST BLOOD SUGARS. 300 each 310510/6Active Blood Glucose Monitoring Suppl (Accu-Chek Madelin Plus) w/Device kit Indications:Type 2 diabetes mellitus with hyperglycemia, with long-term current use of insulin (HCC)USE THREE TIMES A DAY TO TEST BLOOD SUGARS 1 kit 5Active Accu-Chek FastClix Lancets misc Indications:Type 2 diabetes mellitus with hyperglycemia, with long-term current use of insulin (HCC)USE THREE TIMES A DAY WITH LANCING DEVICE. 300 each 3105Active insulin pen needle (Embecta Pen Needle Ultrafine) 31G X 8 mm misc Indications:Type 2 diabetes mellitus with hyperglycemia, with long-term current use of insulin (HCC)USE FOUR TIMES A DAY WITH INSULIN PENS. 400 each 5Active Embecta Pen Needle Ultrafine 31G X 8 MM misc Indications:Type 2 diabetes mellitus with hyperglycemia, with long-term current use of insulin (HCC)USE DIRECTED 100 each 5109/22/2024Discontinued(Reorder) Active Problems ProblemNoted DateDiagnosed AszeMtdhrrdrzlaam42/28/2025Dietary counseling and rdsiggetdcuf76/09/2024Vitamin D deficiency, iqzbniqybaq77/09/2024hest wall pain 06/21/2024(HFpEF) heart failure with preserved ejection ckhyvsoh11/09/2024cute on chronic respiratory failure with hypoxia and odphtgesmho63/09/2024 Assessment & Plan (04/29/2024 2:50 PM EDT): Stable, continue to monitor. No change in regimen. Discussed concerning sx to monitor for. Continue oxygen use - pt would benefit from portable oxygen BPH with urinary iwzgvahzzgr44/09/2024Obesity hypoventilation /09/2024 Acute diastolic heart zrltbgn1011/17/2023oordination kzuufdi3411/17/2023iabetic eauqrkjg96/29/2024Late effect of internal injury to intra-abdominal organs 11/17/2023Muscle hpaposdh94/29/2024etention of urine11/17/2023hronic hypoxemic respiratory sylxzpw9109/27/2023 Assessment & Plan (04/29/2024 2:50 PM EDT): Stable, continue to monitor. No change in regimen. TC (obstructive sleep apnea)07/03/2023 Assessment & Plan (04/29/2024 2:50 PM EDT): Stable, continue to monitor. No change in regimen. Absence of toe (HHS-HCC)06/13/2023 Overview (06/13/2023): noted on 12/09/2018 XR Foot 3+ Views Right. added per outpatient CDI policy. Epmqpu8106/13/2023alance ieceyhsw82/24/2023hronic cough06/13/2023ramps of lower yxqwhjiwk26/24/2023iabetic macular edema (DME) with retinopathy associated with type 2 diabetes yjmeqofr43/24/2023 Overview (03/17/2025): noted in 03/11/2021 Diabetic Eye Exam page 5. added per outpatient CDI policy. noted in 03/11/2021 Diabetic Eye Exam page 5. added per outpatient CDI policy. Assessment & Plan (04/29/2024 2:52 PM EDT): Encouraged follow up with optho Diabetic cdzpvhihci22/24/2023 Assessment & Plan (04/29/2024 2:49 PM EDT): Stable, continue to monitor. No change in regimen. Gastroesophageal reflux cpahzkd8306/13/2023 Assessment & Plan (04/29/2024 2:51 PM EDT): Stable, continue to monitor. No change in regimen. Iswguscerhglwl06/24/2023 Assessment & Plan (04/29/2024 2:52 PM EDT): Stable, continue to monitor. No change in regimen. Quwveejwfgkb04/24/2023 Assessment & Plan (04/29/2024 2:50 PM EDT): Stable, continue to monitor. No change in regimen. Osteoarthritis of knee06/13/2023rimary uewervsnviyhuq07/24/2023Long-term insulin use06/13/2023Lymphedema of both lower qbzqgknstov51/24/2023Morbid kfdcfyn6006/13/2023 Assessment & Plan (04/29/2024 2:51 PM EDT): - continue to monitor weight Dpvswmadakwax73/24/2023Restless leg mxghxhri57/24/2023 Assessment & Plan (04/29/2024 2:49 PM EDT): Currently uncontrolled as pt is out of meds. Refill sent of increased dose Chronic kidney disease, stage 3b06/13/2023 Assessment & Plan (04/29/2024 2:51 PM EDT): Stable, continue to monitor. No change in regimen. Status post transmetatarsal amputation of left foot06/13/2023Type 2 diabetes mellitus with wonqqtmpkxnfk09/24/2023 Assessment & Plan (04/29/2024 2:51 PM EDT): - Uncontrolled, A1c > 13 - encouraged follow up with endo Varicose veins of lower /24/2023 Assessment & Plan (04/29/2024 2:51 PM EDT): Continue to follow w/ vascular Resolved Problems ProblemNoted DateDiagnosed DateResolved EcyvNndypfdbhg33ody mass index (BMI) 45.0-49.9, adult/hronic obstructive pulmonary disease with (acute) ynmghspypnty45/29/202411/4Acute exacerbation of chronic obstructive pulmonary jkalazt56/5Acute hypoxemic respiratory yolgwvz72/4CKD (chronic kidney disease) /3Knee joint kruxqewj94/Low back pain ain in right knee/olyneuropathy due to type 2 diabetes nbgjzjbm01Type 2 diabetes zigonylz44/24/2023 07/03/2023Type 2 diabetes mellitus with morbid bxtxpky22 Overview (06/13/2023): linked DM with HLD per outpatient CDI policy. Encounters DateTypeDepartmentCare EouxUyeqnbssibr24/02/2025Telephone [facility] [place] [facility] [address] [place] [address] Kayla Sweeney MD Med Xjmaqa2607/22/2025Refill [facility] [address] [place] [address] Jennifer Orta PA Type 2 diabetes mellitus with hyperglycemia, with long-term current use of insulin (HCC) (Primary Dx)07/15/2025Patient Outreach [facility] [address] [place] [address] Annette Vega RN 07/02/2025Patient Outreach [facility] [address] [place] [address] Janice Kevin LSW 06/30/2025Patient Outreach [facility] [address] [place] [address] Janice Kevin LSW 06/23/2025Telephone [facility] [address] [place] [address] Aggie Toribio Request For Order(s)06/18/2025Telephone [facility] [address] [place] [address] Kayla Sweeney MD Med Gccuev1906/10/2025Patient Outreach [facility] POPULATION [facility] [address] [place] [address] Janice Kevin LSW 06/06/2025Patient Outreach [facility] [address] [place] [address] Annette Vega, RN 06/06/2025Patient Outreach [facility] [address] [place] [address] Annette Vega, RN 06/05/2025 1:10 PM EDTOffice Visit [facility] [facility] [address] [place] [address] Kayla Sweeney MD Type 2 diabetes mellitus with hyperglycemia, with long-term current use of insulin (HCC) (Primary Dx); Insulin long-term use (HCC); Vitamin D deficiency; Encounter for dietary consultation; Hyperlipemia, mixed; Primary bydmyjwcabko93/16/2025amb flowsheet [facility] [facility] [address] [place] [address] Kayla Sweeney MD 06/02/2025 8:30 AM EDTOffice Visit [facility] [address] [place] [address] Perlita Wills MD 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, unspecified proliferative retinopathy type (HCC) (Primary Dx); 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1 diabetes mellitus (HCC)06/02/2025[facility] flowsheet [facility] [address] [place] [address] Perlita Wills MD 06/02/20252405Pdeudz00/06/2025Patient Outreach [facility] [address] [place] [address] Janice Kevin LSW 05/13/2025Patient Outreach [facility] [address] [place] [address] Annette Vega, RAFAEL 04/29/2025 11:00 AM EDTOffice Visit [facility] [place] [address] [place] [address] Mounika Brooke MD Grief (Primary Dx); Anxiousness; Neck pain; Type 2 diabetes mellitus with hyperglycemia, with long-term current use of insulin (HCC); Essential (primary) hypertension ; Morbid obesity (CMS-HCC); BMI 36.0-36.9,adult04/29/2025amboo flowsheet [facility] [address] [place] [address] Mounika Brooke MD 04/29/20250905Rcvayk24/08/2025Patient Outreach [facility] [address] [place] [address] Janice Kevin LSW from Last 3 Months Immunizations ImmunizationAdministration DatesNext DueInfluenza, Recombinant, injectable, preservative free12/04/2024Influenza, Wupieqpvuub29/18/2018Influenza, injectable, ocuydcfhkmmj51/15/2019,08/07/2018Influenza, injectable, quadrivalent, preservative free05/22/2023,06/17/2022,1PPD Test 11/24/2023,4Pneumococcal Conjugate PCV Pneumococcal Polysaccharide IUCN876110/08/2017,08/07/2018,11/24/20152236LTBX-AON-9 (COVID-19) vaccine, mRNA, spike protein, LNP, bivalent, preservative free, 30 mcg/0.3 mL dose, patel-sucrose dxwoxutsnka93/28/9933GFTF-VdQ-9, Ybppkxskabi08/28/2022 Family History Medical HistoryRelationNameCommentsEmphysemaFatherRelationNameStatusComments FatherDeceasedMotherDeceased Social History Tobacco UseTypesPacks/DayYears UsedDateSmoking Tobacco: NeverSmokeless Tobacco: Never Tobacco Cessation:Counseling Given: Not Answered Alcohol UseStandard Drinks/WeekCommentsNever0 (1 standard drink = 0.6 oz pure alcohol)caffeine 1-2 cups per dayOverall Financial Resource Strain (CARDIA) AnswerDate RecordedHow hard is it for you to pay for the very basics like food, housing, medical care, and heating?Somewhat hard04/11/2025PHQ-2AnswerDate RecordedPatient Health Questionnaire-2 Ciuxn624[facility] Occupational Health - Occupational Stress QuestionnaireAnswerDate [...] homeless or living in a fpc (including now)?No04/11/2025Sex and Gender InformationValueDate Recorded Sex Assigned at BirthNot on fileLegal QaxHvxl2111/02/2022 7:40 PM EDTGender IdentityNot on fileSexual OrientationNot on file Last Filed Vital Signs Vital SignReadingTime TakenCommentsBlood Jhgwoacd544/801 1:20 PM EDT Xqums246706/05/2025 1:20 PM RCVZcnpvkockfu33.2 ??C (97.2 ??F)04/29/2025 11:28 AM EDTRespiratory Dhcx1090 1:20 PM EDTOxygen Pdhjqknogc94%06/05/2025 1:20 PM EDTInhaled Oxygen Concentration--Lkprbu00.3 kg (208 lb)06/05/2025 1:20 PM EDT Oimlpa619.3 cm (5' 11 )06/05/2025 1:20 PM EDTBody Mass Index29.011 1:20 PM EDT Plan of Treatment DateTypeDepartmentCare Team (Latest Contact Info)Nqspgwihtuu59/15/2026 1:10 PM ESTOffice Visit [facility] [place] [facility] [address] [place] [address] Kayla Sweeney MD [address] [place] [address] 12/01/2025 8:30 AM EDTOffice Visit [facility] [address] [place] [address] Perlita Wills MD [address] [place] [address] Health MaintenanceDue DateLast DoneCommentsCT Ugnoifwxzvyr1959Colonoscopy 1959Colorectal Cancer Petyulksr1959FIT-DNA1959FIT1959 FOBT1960 6702Cpgvhccfulmjn1959COVID-19 Vaccine ( season) , 07/27/2021, 12/03/2020, Additional history existsInfluenza Vaccine (#1)504/, 05/22/2023, 06/17/2022, Additional history existsDiabetes: Hemoglobin A1C, 09/04/2024, 06/21/2024, Additional history existsDiabetes: Urine Protein Wblilcoqt55/06/439753/01/2025, 03/13/2025, 08/09/2023 (Manually Satisfied by [employer])Diabetes: Retinopathy Ekqnknijy43, 06/02/2025, 06/02/2025, Additional history exists Pneumococcal Vaccine: 65+ MqdesTvkcobtsy63/16/2025, 08/07/2018, 08/07/2018, Additional history exists Procedures Procedure NamePriorityDate/TimeAssociated DiagnosisCommentsPOCT GLYCOSYLATED HEMOGLOBIN (HGB A1C)Kybvutm3906/05/2025 1:25 PM EDT Type 2 diabetes mellitus with hyperglycemia, with long-term current use of insulin (HCC) POCT TPDWKSUIlyozem92/16/2025 1:25 PM EDT Type 2 diabetes mellitus with hyperglycemia, with long-term current use of insulin (HCC) MICROALBUMIN / CREATININE URINE JXCZJLyqudsg27/06/2025 3:35 PM EDTfrom Last 3 Months or Most Recently Relevant to Health Maintenance Results * POCT glycosylated hemoglobin (Hb A1C) docked device (06/05/2025 1:25 PM EDT) ComponentValueRef RangeTest MethodAnalysis TimePerformed AtPathologist SignatureHemoglobin Q3W98Riexiqfi (Source)Anatomical Location / Laterality Collection Method / VolumeCollection TimeReceived TimeBloodVenous blood specimen / Ycmkozf5706/05/2025 1:25 PM EDT Narrative Authorizing ProviderResult TypeResult StatusKayla Sweeney MDPOINT OF CARE TEST ENTER/EDIT ORDERABLESFinal Result * POCT glucose manually resulted (06/05/2025 1:25 PM EDT)ComponentValueRef Range Test MethodAnalysis TimePerformed AtPathologist SignatureGlucose Blood, DMH848 mg/dLSpecimen (Source)Anatomical Location / LateralityCollection Method / VolumeCollection TimeReceived TimeBloodCapillary blood specimen / Unknown 06/05/2025 1:25 PM EDT Narrative Authorizing ProviderResult TypeResult StatusKayla Sweeney MDPOINT OF CARE TEST ENTER/EDIT ORDERABLESFinal Result * Microalbumin / creatinine urine ratio (03/26/2025 3:35 PM EDT)Specimen (Source)Anatomical Location / LateralityCollection Method / VolumeCollection TimeReceived TimeUrineUrine specimen obtained by clean catch procedure / Unknown Narrative Authorizing ProviderResult TypeResult Silvano CAICEDO URINE ORDERABLESFinal Result from Last 3 Months or Most Recently Relevant to Health Maintenance Insurance Care Teams Team MemberRelationshipSpecialtyStart DateEnd Mounika Brooke MD [address] [place] [address] [facility] - [facility] Ougvgljk71/7/23 Mounika Brooke MD [address] [place] [address] PCP - [facility]11/20/2511 Jennifer Orta PA [address] [place] [address] Physician AssistantFamily Bpstivzc70/4/24 Annette Vega, RAFAEL [address] [place] [address] Registered NurseFamily Medicine04/09/25 Janice Kevin LSW [address] [place] [address] Social WorkerFamily Medicine04/10/25
--- OUTSIDE RECORDS SUMMARY | 2025-07-23 12:51 | XMS_ITS | Encounter Summary ---
Author Organization [facility] Address [address] [place] [address] Care Team Providers Care Senior Java Data Architect Name Role Phone Mounika Brooke MD Primary Care Provider [phone] Jennifer Orta Unavailable [phone] Mounika Brooke MD Unavailable Annette Vega RN Unavailable [phone] Janice eKvin ENTRY LEVEL CIVIL ENGINEER Unavailable Reason for Visit * ReasonOnset DateCommentsMed Fgxlvm8707/22/2025 Encounter Details DateTypeDepartmentCare Team (Latest Contact Info)Qpryyivrfcb20/02/2025Telephone [facility] [address] [place] [address] Kayla Sweeney MD [address] [place] [address] Med Refill Social History Tobacco UseTypesPacks/DayYears UsedDateSmoking Tobacco: NeverSmokeless Tobacco: NeverAlcohol UseStandard Drinks/WeekCommentsNever0 (1 standard drink = 0.6 oz pure alcohol)caffeine 1-2 cups per dayOverall Financial Resource Strain (CARDIA) AnswerDate RecordedHow hard is it for you to pay for the very basics like food, housing, medical care, and heating?Somewhat hard04/11/2025PHQ-2AnswerDate RecordedPatient Health Questionnaire-2 Fmihv282Finnish Vendor of Occupational Health - Occupational Stress QuestionnaireAnswerDate [...] were you homeless or living in a detention (including now)?No04/11/2025Sex and Gender InformationValueDate Recorded Sex Assigned at BirthNot on fileLegal HwtEkgj6611/02/2022 7:40 PM EDTGender IdentityNot on fileSexual OrientationNot on filedocumented as of this encounter Miscellaneous Notes * Telephone Encounter - Cleo White LPN - 07/22/2025 3:07 PM EST MEDICATION SENT TO PHARMACY. * Telephone Encounter - Jude Kirby - 07/22/2025 11:41 AM EST Pt needs pen needles to [facility] in [place] please and thank you! documented in this encounter Plan of Treatment DateTypeDepartmentCare Team (Latest Contact Info)Jatrzktpbwp03/15/2026 1:10 PM ESTOffice Visit [facility] [place] [facility] [address] [place] [address] Kayla Sweeney MD [address] [place] [address] 12/01/2025 8:30 AM EDTOffice Visit [facility] [address] [place] [address] Perlita Wills MD [address] [place] [address] documented as of this encounter Visit Diagnoses Diagnosis Type 2 diabetes mellitus with hyperglycemia, with long-term current use of insulin (HCC) documented in this encounter Care Teams Team MemberRelationshipSpecialtyStart DateEnd Date Mounika Brooke MD [address] [place] [address] PCP - GeneralFamily Yhccbahb62/7/23 Mounika Brooke MD [address] [place] [address] PCP - [facility]/ Jennifer Orta PA [address] [place] [address] Physician AssistantFamily Qexgbkda40/4/24 Annette Vega, RN [address] [place] [address] Registered NurseFamily Medicine04/09/25 Janice Kevin LSW [address] [place] [address] Social WorkerFamily Medicine04/10/25documented as of this encounter
--- OUTSIDE RECORDS SUMMARY | 2025-07-23 12:52 | XMS_ITS | Continuity of Care Document ---
Author Organization [facility] Address [address] [place] [address] Phone [phone] Care Team Providers Care Care Management Coordinator Name Role Phone Nito Brooke DO Care Team Information Marketing Underwriter [phone] Assessments Date Code Description Provider 09/14/2023 N17.9 [...]
--- OUTSIDE RECORDS SUMMARY | 2025-07-23 12:52 | XMS_ITS | Clinical Summary ---
Author Organization [facility] Address [address] [place] [address] Phone Care Team Providers Care Client Services Analyst Name Role Phone Mounika Brooke MD Primary Care Provider [phone] Allergies Active AllergyReactionsCriticalityNoted DateCommentsPenicillamineUnknown 5133FldnwpdfyopWhyiUdbjlw38/13/2015 Medications MedicationSigDispense QuantityRefillsLast FilledStart DateEnd DateStatus albuterol [...] DateAcute pulmonary edema10/26/2023cute on chronic congestive heart afhzhzl6310/25/2023cute on chronic heart failure with preserved ejection btkaycft09/05/2024Fluid xhsmrbqe15/05/2024 Overview (11/14/2023): Last Assessment & Plan: 10 [...] III, BMI 40-49.9 (morbid obesity)10/24/2023Systolic congestive heart tbtglbl5810/24/2023hronic hypoxemic respiratory jmkggxn6909/27/2023cute respiratory failure with hypoxia and ieztdgapavn72/13/2023OSA (obstructive sleep apnea)07/03/2023bsence of toe06/13/2023 Overview (11/14/2023): noted on 12/09/2018 XR Foot 3+ Views Right. added per outpatient CDI policy. Wdamjn5806/13/2023hronic cough06/13/2023alance octvjfpl57/24/2023iabetic 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 2 diabetes mellitus 06/13/2023 Overview (11/14/2023): noted in 03/11/2021 Diabetic Eye Exampage 5. added per outpatient CDI policy. Cramps of lower wnwdzfmzu82/24/2023iabetic sidceuipyf59/24/2023astroesophageal reflux xczhwfq0906/13/2023Morbid bpnhoyt6006/13/2023Lymphedema of both lower xqqpkyexpuo61/24/2820Bjiqksxtfiudts37/24/2023Status post transmetatarsal amputation of left foot06/13/2023Stage 3b chronic kidney rflztck2706/13/2023 Overview (11/14/2023): Last Assessment & Plan: See fluidoverload Cr 1.84 BUN 48 Continue taylor catheter This is a chronic catheter Echo with preserved LV AMY on CKD stage III prerenal most likely 2/2 cardiorenal pathology Nephrology following continue flomax Restless leg dcexrkug46/24/2023 Overview (11/14/2023): Last Assessment & Plan: Symptoms uncontrolled - Increase requip - Continue gabapentin Primary xnxerueodsxz33/24/2023 Overview (11/14/2023): Last Assessment & Plan: BP controlled Continue PRESCHOOL TEACHER'S ASSISTANT hydralazine Primary jtynuqpgwzyhkz13/24/2023Osteoarthritis of knee06/13/2023Onychomycosis 06/13/2023Type 2 diabetes mellitus with twhnszmhaelml81/24/2023Varicose veins of lower ngyozfjdh87/24/2023 Immunizations ImmunizationAdministration DatesNext DueFlu vaccine (IIV4), preservative free *Check age/dose*05/22/2023,06/17/2022,07/20/2021Influenza, injectable, rwomonndrxzh41/15/2019,08/07/2018Pneumococcal polysaccharide vaccine, 23-valent, age 2 years and older (PNEUMOVAX 23)08/07/2018,08/07/2018,11/24/2015 Social History Tobacco UseTypesPacks/DayYears UsedDateSmoking Tobacco: Never AssessedSex and Gender InformationValueDate RecordedSex Assigned at BirthNot on fileLegal Sex Male07/15/2022 8:32 PM ESTGender IdentityNot on fileSexual OrientationNot on file Plan of Treatment Health MaintenanceDue DateLast DoneCommentsCT Duezrxyxzcfg1959Colonoscopy 1959Colorectal Cancer Ogvecpfoe1959Creatinine Level1959 Diabetes: Urine Protein Hnftitxoi1959FIT-DNA (Cologuard)1959FIT 1959Lipid Panel1959Medicare Annual Wellness Visit (AWV)1959 Potassium Level1959 4272Gqadpbzgbsqtw1959MMR Vaccines (1 of 1 - Standard series)01/08/1960Diabetes: Retinopathy Ulyreafea86/20/1969Hepatitis C Screening 1977DTaP/Tdap/Td Vaccines (1 - Tdap)1981PSA Prostate Cancer Yuzzwdzvp28/20/2009RSV High Risk: (Elderly (60+) or Population) (1 - Risk 50-74 years 1-dose series)2009Zoster Vaccines (1 of 2)2009 Pneumococcal Vaccine (2 of 2 - PCV), 08/07/2018, 11/24/2015 Diabetes: Hemoglobin A1C//12/20237718Heycpijtctajjs64/17/088844/ Influenza Vaccine (#1)/09/2022, 06/17/2022, 07/20/2021, Additional history [...] Woodward AAccount TypeRelation to PatientDate of BirthPhoneBilling AddressPersonal/XccnzhTfwb1960 [address] [address] * Guarantor: [place] Woodward AAccount TypeRelation to PatientDate of BirthPhoneBilling AddressPersonal/WrqsytTcdl1960 [address] [address] Care Teams Team MemberRelationshipSpecialtyStart DateEnd Mounika Brooke MD [address] [place] [address] [facility] - [facility]
--- OUTSIDE RECORDS SUMMARY | 2025-07-23 12:52 | XMS_ITS | Encounter Summary ---
Author Organization [facility] Address [address] [place] [address] Care Team Providers Care Food Sanitarian Name Role Phone Mounika Brooke MD Primary Care Provider [phone] Jennifer Orta Unavailable Mounika Brooke MD Unavailable [phone] Annette Vega RN Unavailable [phone] Janice Kevin Unavailable Reason for Visit * ReasonCommentsMed Refill Encounter Details DateTypeDepartmentCare Team (Latest Contact Info)Vphbbgcjulr52/02/2025Refill [facility] [address] [place] [address] Jennifer Orta PA [address] [place], [place] [id number] Type 2 diabetes mellitus with hyperglycemia, with long-term current use of insulin (HCC) (Primary Dx) Social History Tobacco UseTypesPacks/DayYears UsedDateSmoking Tobacco: NeverSmokeless Tobacco: NeverAlcohol UseStandard Drinks/WeekCommentsNever0 (1 standard drink = 0.6 oz pure alcohol)caffeine 1-2 cups per dayOverall Financial Resource Strain (CARDIA) AnswerDate RecordedHow hard is it for you to pay for the very basics like food, housing, medical care, and heating?Somewhat hard04/11/2025PHQ-2AnswerDate RecordedPatient Health Questionnaire-2 Zmxqd112[place] of Occupational Health - Occupational Stress QuestionnaireAnswerDate [...] Recorded Sex Assigned at BirthNot on fileLegal GdwKvlx5111/02/2022 7:40 PM EDTGender IdentityNot on fileSexual OrientationNot on filedocumented as of this encounter Miscellaneous Notes * Telephone Encounter - HARPAL Barnes - 07/22/2025 12:28 PM EST Script completed documented in this encounter Plan of Treatment DateTypeDepartmentCare Team (Latest Contact Info)Iuissxyvjqe63/15/2026 1:10 PM ESTOffice Visit [facility] [place] [facility] [address] [place] [address] Kayla Sweeney MD [address] [place] [address] 12/01/2025 8:30 AM EDTOffice Visit [facility] [address] [place] [address] Perlita Wills MD [address] [place] [address] documented as of this encounter Visit Diagnoses Diagnosis Type 2 diabetes mellitus with hyperglycemia, with long-term current use of insulin (HCC)- Primary documented in this encounter Care Teams Team MemberRelationshipSpecialtyStart DateEnd Date Mounika Brooke MD [address] [place] [address] PCP - GeneralFamily Caziujlg86/7/23 Mounika Brooke MD [address] [place] [address] PCP - [facility]11/20/2511 Jennifer Orta PA [address] [place] [address] Physician AssistantFamily Mwhnawzt41/4/24 Annette Vega, RN [address] [place] [address] Registered NurseFamily Medicine04/09/25 Janice Kevin LSW [address] [place] [address] Social WorkerFamily Medicine04/10/25documented as of this encounter
--- OUTSIDE RECORDS SUMMARY | 2025-07-23 12:52 | XMS_ITS | Clinical Summary ---
Author Organization [facility] Address [address] [place] [address] Care Team Providers Care Workforce Development Program Director Name Role Phone Mounika Brooke MD Primary Care Provider [phone] Debora Levi MD Unavailable [phone] Allergies Active AllergyReactionsCriticalityNoted XqhrKbccsipuXwhcsozzgmjBynp29/13/2015 Medications MedicationSigDispense QuantityRefillsLast FilledStart DateEnd DateStatus insulin [...] DateAcute pulmonary edema10/26/2023cute on chronic congestive heart ebthptf5810/25/2023cute respiratory failure with hypoxia and dcocingczfa48/06/2024Fluid xauvtbgr24/05/2024 Assessment & Plan (10/26/2023 3:21 PM EST): [...] on chronic heart failure with preserved ejection yvchoszi42/05/2024 Obesity, Class III, BMI >= 40010/24/2023Systolic congestive [...] (10/26/2023 3:23 PM EST): BP controlled 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 Last address used for [address]/23/2023Sex and Gender InformationValueDate RecordedSex Assigned at BirthNot on fileLegal TddOfku1910/25/2013 12:04 PM EST Gender IdentityNot on fileSexual OrientationNot on file Last Filed Vital Signs Vital SignReadingTime TakenCommentsBlood Obdyvffp685/7903 11:20 AM EST Xviwl169810/28/2023 11:20 AM MVBBwynixbsytp36.9 ??C (98.4 ??F)10/28/2023 11:20 AM ESTRespiratory Immd865410/28/2023 11:20 AM ESTOxygen Dkktzisnxs05%10/28/2023 11:20 AM ESTInhaled Oxygen Concentration--Isigrv940.7 kg (275 lb)10/28/2023 8:48 AM TNTDtxiwt959.3 cm (5' 11 )10/24/2023 1:27 AM ESTBody Mass Index38.35010/24/2023 1:27 AM EST Plan of Treatment Health MaintenanceDue DateLast DoneCommentsAnxiety Jxhbkhlao41/20/1977Depression Bcnenwjhl09/20/1977Hepatitis C Jwihaxysr83/20/1977DTaP,Tdap,Td Vaccine (1 - Tdap)1978CT Dmaqctfcuplq50/20/2004Cologuard (FIT-DNA)01/08/2004Colonoscopy 01/08/2004Colorectal Cancer Acmsusona19/20/2004Fecal Occult Blood01/08/2004 Prostate Cancer Screening Wcradhfsyj80/20/2176Cjlmywnsukpgx85/20/2004Shingrix Vaccine (1 of 2)2009Pneumococcal Vaccine: 50+ (2 of 2 - PCV)08/07/2019 08/07/2018, 08/07/2018, 11/24/2015Advance Directive Ehngiehupi02/01/2025ovid-19 Vaccine ( season)/, 07/27/2021, 12/03/2020, Additional history existsInfluenza Vaccine (#1)/09/2022, 06/17/2022, 07/20/2021, Additional history existsDiabetes Ojikatmgz39, 10/24/2023, 10/24/2023, Additional history existsLipid Priiunjcn71/06/2029 4RSV Vaccine (1 - 1-dose 75+ series)2034 Procedures Procedure NamePriorityDate/TimeAssociated DiagnosisCommentsCOMPREHENSIVE METABOLIC DSPUNRjzkisr51/08/2024 5:18 AM EST LIPID PANEL, SGYNULWHcathdy26/06/2024 6:27 AM EST from Last 3 Months or Most Recently Relevant to Health Maintenance Results * (ABNORMAL) COMP METABOLIC PANEL (10/27/2023 5:18 AM EST)ComponentValueRef RangeTest MethodAnalysis TimePerformed AtPathologist SignatureProtein, Total 6.36.3 - 8.0 g/dL10/27/2023 6:05 AM ESTFAIRVIEW LABORATORYAlbumin3.3(L)3.9 - 4.9 g/dL10/27/2023 6:05 AM ESTFAIRVIEW LABORATORYCalcium, Total9.18.5 - 10.2 mg/dL10/27/2023 6:05 AM ESTFAIRVIEW LABORATORYBilirubin, Total0.60.2 - 1.3 mg/dL10/27/2023 6:05 AM ESTFAIRVIEW LABORATORYAlkaline Fmeeyucpxhq6145 - 113 U/L10/27/2023 6:05 AM ESTFAIRVIEW JXGMBWRZEPKIV17(L)14 - 40 U/L10/27/2023 6:05 AM ESTFAIRVIEW JGUYHIIUGLPVT6203 - 54 U/L10/27/2023 6:05 AM ESTFAIRVIEW JEYYWFYZVOYoxhngb862(H)74 - 99 mg/dL10/27/2023 6:05 AM ESTFAIRVIEW LABORATORY Comment: The [place] Diabetes Association (ADA) provides guidance for cutoff [...] Standards of Medical Care in Diabetes 2016, [place] Diabetes Association. Diabetes Care. 2016.39(Suppl 1). BUN40(H)9 - 24 mg/dL10/27/2023 6:05 AM ESTFAIRVIEW LABORATORYCreatinine1.62(H) 0.73 - 1.22 mg/dL10/27/2023 6:05 AM ESTFAIRVIEW CSJGFFSIOIAnddyz480399 - 144 mmol/L10/27/2023 6:05 AM ESTFAIRVIEW LABORATORYPotassium4.13.7 - 5.1 mmol/L 10/27/2023 6:05 AM ESTFAIRVIEW EGXSAFFKXNCkrerlbd92113 - 105 mmol/L10/27/2023 6:05 AM ESTFA[facility] SRVXOZMOWJSR038(H)22 - 30 mmol/L10/27/2023 6:05 AM EST [facility] [...] TimeReceived TimeBloodBLOOD SPECIMEN / Unknown Venipuncture / Fiuakht1710/27/2023 5:18 AM EST10/27/2023 5:24 AM EST Narrative Authorizing ProviderResult TypeResult StatusIbrahim Bsscottya LABORATORYFinal ResultPerforming OrganizationAddressCity/State/ZIP CodePhone Number [facility] [address] * LIPID PANEL BASIC (10/25/2023 6:27 AM EST)ComponentValueRef RangeTest Method Analysis TimePerformed AtPathologist SignatureCholesterol, Ppuvs214<200 mg/dL 10/25/2023 9:13 AM ESTFAIRVIEW LABORATORYComment: <200 mg/dL, Desirable 200-239 mg/dL, Borderline high >239 mg/dL, High Xbgfbivfsuwl73<150 mg/dL10/25/2023 9:13 AM ESTFAIRVIEW LABORATORYComment: <150 mg/dL, Normal 150-199 mg/dL, Borderline high 200-499 mg/dL, High >499 mg/dL, Very high HDL Oekrqgbviaw26>39 mg/dL10/25/2023 9:13 AM ESTFAIRVIEW LABORATORYComment: 40-59 mg/dL, Acceptable >59 mg/dL, High: Negative risk factor for coronary heart disease <40 mg/dL, Low: Positive risk factor for coronary heart disease Non HDL Umogconpdis19<130 mg/dL10/25/2023 9:13 AM ESTFAIRVIEW LABORATORYComment: <130 mg/dL, Optimal 130-159 mg/dL, Near optimal/above optimal 160-189 mg/dL, Borderline high 190-219 mg/dL, High >219 mg/dL, Very high Secondary prevention optimal non HDL Cholesterol levels are recommended to be <100 mg/dL Fasting Xgcm77utu65/06/2024 9:13 AM ESTFAIRVIEW LABORATORYVLDL Lknuwplsnsx30<30 mg/dL10/25/2023 9:13 AM ESTFAIRVIEW LABORATORYTC:HDL Ratio1.70<5.10010/25/2023 9:13 AM ESTFAIRVIEW LABORATORYLDL Cholesterol, Wmfbwfndwh91<100 mg/dL10/25/2023 9:13 AM ESTFAIRVIEW LABORATORYComment: <100 mg/dL, Optimal 100-129 mg/dL, Near optimal/above optimal 130-159 mg/dL, Borderline high 160-189 mg/dL, High >189 mg/dL, Very high Secondary prevention optimal LDL Cholesterol levels are recommended to be < 70 mg/dL LDL:HDL Ratio0.54<2.5403 9:13 AM ESTFAIRVIEW LABORATORYComment: Reference: 1. National Cholesterol Education Program ATP III Guideline At-A-Glance Quick Desk Reference: National Heart, Lung, and Blood [place]. National Institutes of Health. 2001: NIH Publication No. 01-3305. 2. An International Atherosclerosis Society position paper: global recommendations for the management of dyslipidemia: executive summary, Atherosclerosis. 2014: 232(2):410-413. Specimen (Source)Anatomical Location / LateralityCollection Method / Volume Collection TimeReceived TimeBloodBLOOD SPECIMEN / UnknownVenipuncture / Unknown 10/25/2023 6:27 AM EST10/25/2023 6:40 AM EST Narrative Authorizing ProviderResult TypeResult StatusDanielle Knowles WIRE FRAME LAMP SHADE MAKER.CNPLABORATORY Final ResultPerforming OrganizationAddressCity/State/ZIP CodePhone Number [facility] [address] from Last 3 Months or Most Recently Relevant to Health Maintenance Insurance Care Teams Team MemberRelationshipSpecialtyStart DateEnd Mounika Brooke MD [address] [place] [address] PCP - GeneralFainly Medicine10/23/23 [place] [address] [facility] [address] [place], [place] [id number] PhysicianNephrology10/31/23
--- OUTSIDE RECORDS SUMMARY | 2025-07-23 12:52 | XMS_ITS | Encounter Summary ---
Author Organization [facility] Address [address] [place] [address] Care Team Providers Care Municipal Firefighter Name Role Phone Mounika Brooke MD Primary Care Provider [phone] Jennifer Orta Unavailable [phone] Mounika Brooke MD Unavailable [phone] Annette Vega RN Unavailable [phone] Janice Kevin Unavailable Encounter Details DateTypeDepartmentCare Team (Latest Contact Info)Kpiaxgexqht36/25/2025Patient Outreach [facility] [address] [place] [phone] Annette Vega, RN [address] [place] [address] Social History Tobacco UseTypesPacks/DayYears UsedDateSmoking Tobacco: NeverSmokeless Tobacco: NeverAlcohol UseStandard Drinks/WeekCommentsNever0 (1 standard drink = 0.6 oz pure alcohol)caffeine 1-2 cups per dayOverall Financial Resource Strain (CARDIA) AnswerDate RecordedHow hard is it for you to pay for the very basics like food, housing, medical care, and heating?Somewhat hard04/11/2025PHQ-2AnswerDate RecordedPatient Health Questionnaire-2 Fifcr167Finjordan [facility] [place] of Occupational Health - Occupational Stress QuestionnaireAnswerDate [...] were you homeless or living in a custodial (including now)?No04/11/2025Sex and Gender InformationValueDate Recorded Sex Assigned at BirthNot on fileLegal FcqMtnk0611/02/2022 7:40 PM EDTGender IdentityNot on fileSexual OrientationNot on filedocumented as of this encounter Progress Notes * Annette Vega RN - 07/15/2025 8:39 AM EST Attempt to contact x 3, monthly monitor. Unable to leave VM . Sending unable to contact letter. SANJUANA 04/29/25 NOV not yet scheduled. <July 15, 2025, 08:56 - Annette Vega RN> Printed and mailed. documented in this encounter Plan of Treatment DateTypeDepartmentCare Team (Latest Contact Info)Hekbywsxcpm65/15/2026 1:10 PM ESTOffice Visit [facility] [place] [facility] [address] [place] [phone] Kayla Sweeney MD [address] [place] [address] 12/01/2025 8:30 AM EDTOffice Visit [facility] [address] [place] [address] Perlita Wills MD [address] [place] [address] documented as of this encounter Visit Diagnoses Diagnosis Type 2 diabetes mellitus with hyperglycemia, with long-term current use of insulin (HCC)- Primary Chronic hypoxemic respiratory failure (HCC) Chronic respiratory failure documented in this encounter Care Teams Team MemberRelationshipSpecialtyStart DateEnd Date Mounika Brooke MD [address] [place] [address] [facility] - [facility]j60[facility]/23 Mounika Brooke MD [address] [place] [address] PCP - [facility]11/20/2511 Jennifer Orta PA [address] [place] [address] Physician AssistantFamily Bmpnaswc45/4/24 Annette Vega, RAFAEL [address] [place] [address] Registered NurseFamily Medicine04/09/25 Janice Kevin LSW [address] [place] [address] Social WorkerFamily Medicine04/10/25documented as of this encounter
--- OUTSIDE RECORDS SUMMARY | 2025-07-23 13:02 | XMS_ITS | CCD ---
Author Organization [facility] Inform ion Partnership [facility] Care Team Providers Care Medical Charge Entry Specialist Name Role Phone Migue STROUD Primary [...] Admit Provider DO Tera Nevarez Attending Provider [phone] MD Hood Zacarias Other Provider MD Yesi Murphy Attending Provider PIPPA DONAHUE Consulting Unavailable BSTAY WELLER Admitting Unavailable TAY STEWART Attending Unavailable MOUNIKA BROOKE Primary Care Unavailable Mounika Brooke MD Primary Care Provider Gurmeet LYMAN, Naun Unavailable [phone] MD Mounika Brooke Primary Care Provider DO Jason Mercado M Emergency Provider DO Tera Nevarez Admit Provider MD Hood Zacarias Other Provider MD Yesi Murphy Attending Provider [phone] SOFIE Alexander Other Provider Unavailable MD Bladimir Story Other Provider MD Immanuel Pozo Other Provider MD Satnam Guevara Other Provider MD Gigi Cooper Other Provider MD Manish Fu Attending Provider [phone] Mounika Brooke MD Primary Care Provider Mendy LYMAN, Mounika Lugo Unavailable [phone] Marivel ROWAN, Jennifer Nunez Unavailable Smooth Harrington Attending Unavailable Dolce, Smooth Elizondo Attending Unavailable Hajdari, Astrit H Attending Unavailable COOK, Taz P Referring Unavailable COOK, Taz P Admitting Unavailable COOK, Taz P Attending Unavailable COOK, Taz P Attending Unavailable COOK, Taz P Referring Unavailable COOK, Taz P Admitting Unavailable COOK, Taz P Admitting Unavailable COOK, Taz P Attending Unavailable [facility], XXXX Consulting Unavailable Moussawi, Ahmad Admitting [...] Primary Care Provider Mounika Brooke MD Unavailable [phone] [facility], Janice Unavailable [facility] Janice Unavailable Nicole Myers Attending Unavailable [...] Suarez Admitting Unavailable Jacqueline Vega RN Unavailable [facility], Janice Unavailable MENDY, MOUNIKA M Attending [...] (4 sources)Penicillins; Translations: [penicillins]Drug AllergyCutaneous eruption (morphologic abnormality)[facility] (20 sources)Penicillins; Translations: [penicillins]Drug [id number] Cutaneous eruption (morphologic abnormality), [facility] (20 sources)penicillAMINEDrug Wjrpptr72-10-8200VkylxdoTZMG Healthcare Medications Current Medications MedicationDrug Class(es)DatesSig (Normalized)Sig (Original)##### (1 source)Start: 12-28-2021##### 100 EA, USE TO TEST THREE TIMES DAILY Start Date: 12/28/21 Status: Orderedacetaminophen 325 mg / HYDROcodone bitartrate 5 mg oral tablet (16 sources)Opioid AgonistStart: 19-62-0558icjx 1 tablet by mouth every hour [place] 325 mg-5 mg oral tablet See Instructions, 1 tab(s), Refill(s) 0, Take 1 hour prior to your procedure, [facility] #[id number], 183, cm, 11/20/23 12:53:00 EDT, Height/Length Dosing, 143.5, kg, 11/11/23 9:09:00 EDT, Weight Dosing Start Date: 11/20/23 Status: Orderedacetaminophen 325 mg / oxyCODONE hydrochloride 5 mg oral tablet (20 sources)Opioid AgonistStart: 15-19-4354nyjRXQIEO-acetaminophen (Percocet) 5- 325 MG tablet 06/23/2024 ActiveStart: 06-23-2024 End: 33-90-8190fjgi 1 tablet by mouth every six hours as needed for pain oxyCODONE-acetaminophen (Percocet) 5-325 MG tablet TAKE 1 TABLET BY MOUTH EVERY 6 HOURS FOR 3 DAYS NEEDED FOR PAIN 06/23/2024 Activeacetaminophen 325 mg / traMADol hydrochloride 37.5 mg oral tablet (16 sources)Opioid AgonistStart: 47-77-7898Tukvvonz 325 mg-37.5 mg Tab See Instructions, 20 tab(s), Refill(s) 0, take 1-2 every 6 hrs prn for pain - following procedure, [facility] #[id number], 183, cm, 11/20/23 12:53:00 EDT, Height/Length Dosing, 143.5, kg, 11/11/23 9:09:00 EDT, Weight Dosing Start Date: 11/20/23 Status: OrderedacetaZOLAMIDE 250 mg oral tablet (1 source)Carbonic Anhydrase InhibitorStart: 75-58-4106obpg 250 mg by mouth twice dailyAcetazolamide Active 250 MG PO Twice daily November 17, 2023 12:69wusre345051 200 actuat albuterol 0.09 mg/actuat metered dose inhaler (20 sources)beta2-Adrenergic AgonistStart: 42-10-9353xlxd 2 puff(s) by inhalation every four hoursalbuterol HFA 90 mcg/act inhaler Inhale 2 puffs every 4 (four) hours if needed 11/03/2022 ActiveStart: 55-76-1677jzfb 2.5 mg by inhalation every four hoursalbuterol 0.083% Inh Harriet 3 mL 2.5 mg, 3 mL, Inhalation, q4hr Shortness of breath or wheezing, 30 EA, Refill(s) 5, [facility] #[id number], 182.9, cm, 03/29/22 13:07:00 EDT, Height/Length Dosing, 126.7, kg, 13:07:00 EDT, Weight Dosing Start Date: 04/04/22 Status: Ordered Quantity: 30.0 Unit: EA Repeat number: 6Start: 16-24-4043qhha 2.5 mg by inhalation every four hoursalbuterol 0.083% Inh Harriet 3 mL 2.5 mg, 3 mL, Inhalation, q4hr Shortness of breath or wheezing, 30 EA, Refill(s) 2, [facility], 183, cm, 01/11/21 11:12:00 EDT, Height/Length Dosing, 145.1, kg, 12/23/20 19:46:00 EDT, Weight Dosing Start Date: 03/08/21 Status: OrderedStart: 68-71-1374qjnv 2.5 mg by inhalation every four hoursalbuterol 0.083% Inh Harriet 3 mL 2.5 mg, 3 mL, Inhalation, q4hr Shortness of breath or wheezing, 30 EA, Refill(s) 2, [facility], 183, cm, 01/11/21 11:12:00 EDT, Height/Length Dosing, 145.1, kg, 12/23/20 19:46:00 EDT, Weight Dosing Start Date: 03/08/21 Status: Ordered Albuterol (Eqv-ProAir HFA) 90 mcg/inh inhalation aerosol (20 sources)Start: 31-74-9424ltwu 2 puff(s) by inhalation every six hours Albuterol (Eqv-ProAir HFA) 90 mcg/inh inhalation aerosol 2 puff(s), Inhalation, q6hr Wheezing, 18 gm, Refill(s) 11, [facility] #[id number], 182, cm, 05/08/23 10:15:00 EDT, Height/Length Dosing, 137, kg, 05/08/23 10:15:00 EDT, Weight Dosing Start Date: 05/08/23 Status: Ordered Quantity: 18.0 Unit: g Repeat number: 12Start: 33-78-7947pxeo 2 puff(s) by inhalation every six hoursAlbuterol (Eqv-ProAir HFA) 90 mcg/inh inhalation aerosol 2 puff(s), Inhalation, q6hr Wheezing, 18 gm, Refill(s) 11, [facility] #68472, 182, cm, 05/08/23 10:15:00 EDT, Height/Length Dosing, 137, kg, 05/08/23 10:15:00 EDT, Weight Dosing Start Date: 05/08/23 Status: OrderedStart: 05-08-2023 End: 83-63-5559fyfa 2 puff(s) by inhalation every six hoursAlbuterol (Eqv-ProAir HFA) 90 mcg/inh inhalation aerosol 2 puff(s), Inhalation, q6hr Wheezing for 30 day(s), 18 gm, Refill(s) 11, [facility] #02459, 182, cm, 05/08/23 10:15:00 EDT, Height/Length Dosing, 137, kg, 05/08/23 10:15:00 EDT, Weight Dosing Start Date: 05/08/23 Stop Date: 05/02/24 Status: Orderedalbuterol 0.833 mg/ml / ipratropium bromide 0.167 mg/ml inhalation solution (1 source)Anticholinergic, beta2-Adrenergic AgonistStart: 83-59-1060pncm 1 mL by inhalation four times dailyIpratropium-Albuterol Active 3 ML INHALATION Four times daily - Respiratory 0 November 17, 2023 12:00amaspirin 81 mg oral tablet (8 sources)Platelet Aggregation Inhibitor, Nonsteroidal Anti-inflammatory Drug Start: 39-54-4452xzco 1 tablet by mouth once dailyaspirin 81 mg oral tablet 81 mg = 1 tab(s), Oral, Daily, # 30 tab(s), Refills(s) 0 Start Date: 03/11/19 Status: OrderedComment on above:Take 81 mg by mouth once daily.atorvastatin 40 mg oral tablet (20 sources)HMG-CoA Reductase InhibitorStart: 03-10-2022 End: 03-09-2828teys 1 tablet by mouth once daily in the morningatorvastatin 40 mg Tab 40 mg = 1 tab(s), Oral, qAM, # 30 tab(s), Refills(s) 0, [facility]: [id number], 180, cm, 09/12/23 13:35:00 EST, Height/Length Dosing, 149.8, kg, 09/12/23 13:35:00 EST, Weight Dosing Start Date: 09/16/23 Status: Ordered Quantity: 30.0 Unit: tab(s) Repeat number: 1Beet Root (20 sources)Start: 96-25-4651Eqqt Root Beet Root, See Instructions, Take 1000mg daily Start Date: 09/19/22 Status: OrderedBlood Glucose Monitoring Suppl (Socratic Verio Flex System) w/Device kit (9 sources)Start: 42-26-5225Ikeqn Glucose Monitoring Suppl (Socratic Verio Flex System) w/Device kit USE DIRECTED TO TEST BLOOD SUGAR 12/24/2024 [id number] actuat budesonide 0.16 mg/actuat / formoterol fumarate 0.0045 mg/actuat metered dose inhaler (20 sources)Corticosteroid, beta2-Adrenergic AgonistStart: 03-38-9013mazf 1 puff(s) by inhalation twice dailyBudesonide-Formoterol (Symbicort) 160-4.5 mcg/actuation HFA aerosol inhaler Active 2 PUFF INHALATION Twice daily June 19, 2023 12:00amStart: 05-09-2023 End: 09-92-2813gfjx 2 puff(s) by inhalation in the morningSymbicort 160-4.5 MCG/ACT inhaler Inhale 2 puffs in the morning and 2 puffs before bedtime. 05/09/2023 03/25/2025 Discontinued (Non-compliance)Start: 36-53-5220akatqrdnoe- formoterol (SYMBICORT) 160-4.5 mcg/actuation inhaler Inhale 2 Puffs as instructed. 0 05/09/2023 ActiveComment on above:Inhale 2 Puffs as instructed. cefdinir 300 mg oral capsule (1 source)Cephalosporin AntibacterialStart: 12-02-2024 End: 81-88-1155svmh 1 capsule by mouth every twelve hourscefdinir 300 mg Cap 300 mg = 1 cap(s), Oral, q12hr, X 10 day(s), # 20 cap(s), Refills(s) 0, Pharmacy: [facility] #[id number], 183, cm, 12/02/24 12:47:00 EDT, Height/Length Dosing, 117.1, kg, 12/02/24 12:47:00 EDT, Weight Dosing Start Date: 12/02/24 Stop Date: 12/12/24 Status: Ordered Quantity: 20.0 Unit: cap(s) Repeat number: 1 cinnamon preparation 500 mg oral tablet (20 sources)Non-Standardized Food Allergenic ExtractStart: 99-53-7073hwud 1 capsule by mouth once dailyCinnamon 500 mg oral capsule 500 mg = 1 cap(s), Oral, Daily, Refills(s) 0 Start Date: 09/19/22 Status: Orderedcyclobenzaprine hydrochloride 10 mg oral tablet (7 sources)Muscle RelaxantStart: 13-40-4436kevy 1 tablet by mouth at bedtime cyclobenzaprine (Flexeril) 10 MG tablet Indications: Neck pain Take 1 tablet (10 mg) by mouth at bedtime 30 tablet 04/29/2025 ActivediazePAM 10 mg oral tablet (16 sources)BenzodiazepineStart: 44-85-1023Dikqrr 10 mg Tab See Instructions, Take 1 hr prior to procedure, # 1 tab(s), Refills(s) 0, Pharmacy: [facility] #[id number], 183, cm, 11/20/23 12:53:00 EDT, Height/Length Dosing, 143.5, kg, 11/11/23 9:09:00EDT, Weight Dosing Start Date: 11/20/23 Status: OrderedDISABILITY PARKING PLACARD (1 source)Start: 26-25-9651CFQYCLAWAV PARKING PLACARD DISABILITY PARKING PLACARD, See Instructions, 1 EA, 0, > Five Years, Supply Start Date: 10/01/21 Status: Ordereddoxycycline hyclate 100 mg oral capsule (20 sources)Tetracycline-class DrugStart: 06-23-2024 End: 42-26-1864anfw 1 capsule by mouth in the morningdoxycycline (Vibramycin) 100 MG capsule Take 100 mg by mouth in the morning and 100 mg before bedtime. 06/23/2024 ActiveStart: 60-00-3805vymxavnaiss hyclate 100 mg Tab See Instructions, Start taking 3 days prior to procedure - twice a day x7 days, # 14 tab(s), Refills(s) 0, Pharmacy: [facility] #[id number], 183, cm, 11/20/23 12:53:00 EDT, Height/Length Dosing, 143.5, kg, 11/11/23 9:09:00 EDT, Weight Dosing Start Date: 11/20/23 Status: Ordered Quantity: 14.0 Unit: tab(s) Repeat number: 1Start: 06-19-2023 End: 29-10-0083qocq 100 mg by mouth twice dailyDoxycycline Hyclate Discontinued 100 MG PO Twice daily June 19, 2023 12:00am June 21, 2023 1:50pm DULoxetine 60 mg delayed release oral capsule (20 sources)Serotonin and Norepinephrine Reuptake InhibitorStart: 04-29-2025 End: 85-92-6380mztg 2 capsules by mouth once dailyDULoxetine (Cymbalta) [address] capsule Indications: Anxiousness Take 2 capsules (120 mg) by mouth Daily 180 capsule 3 04/29/2025 04/29/2026 ActiveStart: 01-11-2022 End: 64-67-0930rvep 1 capsule by mouth once dailyDULoxetine (Cymbalta) [address] capsule Indications: Anxiousness Take 1 capsule (60 mg) by mouth Daily 90 capsule 3 01/22/2025 04/29/2025 Discontinued (Reorder)DULoxetine 60 mg Cap-EC (3 sources)Start: 01-46-8147dwuf 1 capsule by mouth once dailyDULoxetine 60 mg Cap-EC 60 mg = 1 cap(s), Oral, Daily, # 30 cap(s), Refills(s) 11, [facility]: [facility], 182, cm, 01/11/22 13:57:00 EDT, Height/Length Dosing, 130, kg, 01/11/22 13:57:00 EDT, Weight Dosing Start Date: 01/11/22 Status: OrderedStart: 60-78-7223mjfe 1 capsule by mouth once dailyDULoxetine 60 mg Cap- EC 60 mg = 1 cap(s), Oral, Daily, # 30 cap(s), Refills(s) 11, [facility]acy: [facility], 183, cm, 11/14/19 12:11:00 EDT, Height/Length Measured, 144.3, kg, 11/14/19 12:11:00 EDT, Weight Measured Start Date: 12/03/19 Status: Orderedempagliflozin 10 mg oral tablet (4 sources)Sodium-Glucose Cotransporter 2 InhibitorStart: 10-28-2023 End: 68-61-6419qlik 1 tablet by mouth once dailyempagliflozin (JARDIANCE) 10 mg tablet Take 1 tablet by mouth once daily. 30 tablet 2 10/28/2023 01/26/2024 ActiveComment on above:Take 1 tablet by mouth once daily.Flax Seed Oil (20 sources)Start: 68-81-4724Zkkm Seed Oil See Instructions, Refill(s) 0, Take 1000mg daily Start Date: 09/19/22 Status: Orderedfluconazole 200 mg oral tablet (1 source)Azole AntifungalStart: 12-45-8872zrof 200 mg by mouth once daily Fluconazole Active 200 MG PO Daily 05 30November 17, 2023 12:00amFreestyle Sage 2 [place] (20 sources)Start: 72-37-5994Yowtlghki Sage 2 [place] Freestyle Sage 2 [place], See Instructions, 1 EA, 0, Use daily with sensor, [facility] #97383, Supply, 180, cm, 09/12/23 13:35:00 EST, Height/Length Dosing, 149.8, kg, 09/12/2412:35:00 EST, Weight Dosing Start Date: 09/16/23 Status: Ordered Quantity: 1.0 Unit: EA Repeat number: 1Start: 69-14-8592Yqcrtzglj Sage 2 [place] Freestyle Sage 2 [place], See Instructions, 1 EA, 0, Use daily with sensor, [facility] #67996, Supply, 180, cm, 09/12/23 13:35:00 EST, Height/Length Dosing, 149.8, kg, 09/12/2412:35:00 EST, Weight Dosing Start Date: 09/16/23 Status: OrderedStart: 21-11-4525Bxfjzijgh Sage 2 [place] Freestyle Sage 2 [place], See Instructions, 1 EA, 0, Use daily with sensor, [facility] #[id number], Supply, 182, cm, 05/22/23 13:30:00 EDT, Height/Length Dosing, 139.6, kg, 05/22/2313:30:00 EDT, Weight Dosing Start Date: 05/22/23 Status: OrderedFreestyle Sage 2 Sensors (20 sources)Start: 96-01-1646[place] Sage 2 Sensors Freestyle Sage 2 Sensors, See Instructions, 2 EA, 3, Apply one q 14 days, [facility] #70347, Supply, 180, cm, 09/12/23 13:35:00 EST, Height/Length Dosing, 149.8, kg, 09/12/2412:35:00 EST, Weight Dosing Start Date: 09/16/23 Status: Ordered Quantity: 2.0 Unit: EA Repeat number: 4Start: 08-42-5940Ktvhkorsd Sage 2 Sensors Freestyle Sage 2 Sensors, See Instructions, 2 EA, 3, Apply one q 14 days, [facility] #14792, Supply, 180, cm, 09/12/23 13:35:00 EST, Height/Length Dosing, 149.8, kg, 09/12/2412:35:00 EST, Weight Dosing Start Date: 09/16/23 Status: OrderedStart: 32-17-3103Khsilobjq Sage 2 Sensors Freestyle Sage 2 Sensors, See Instructions, 2 EA, 3, Apply one q 14 days, [facility] #44054, Supply, 182, cm, 05/22/23 13:30:00 EDT, Height/Length Dosing, 139.6, kg, 05/22/2313:30:00 EDT, Weight Dosing Start Date: 05/22/23 Status: Ordered furosemide 20 mg oral tablet (20 sources)Loop DiureticStart: 31-79-3944axak 1 tablet by mouth once dailyLasix 40 mg Tab 40 mg = 1 tab(s), Oral, Daily, # 30 tab(s), Refills(s) 0, [facility]: [facility][id number], 180, cm, 09/12/23 13:35:00 EST, Height/Length Dosing, 149.8, kg, 09/12/23 13:35:00 EST, Weight Dosing Start Date: 09/16/23 Status: Ordered Quantity: 30.0 Unit: tab(s) Repeat number: 1Start: 65-42-9957xczskkczol (Lasix) 20 MG tablet Take 40 mg by mouth in the morning. and 20mg at night. 0 06/21/2023 ActiveStart: 06-21-2023 End: 09-65-2236swjf 1 tablet by mouth once daily in the eveningLasix 20 mg Tab 20 mg = 1 tab(s), Oral, qPM, # 30 tab(s), Refills(s) 0, [id number], 180, cm, 09/12/23 13:35:00 EST, Height/Length Dosing, 149.8, kg, 09/12/23 13:35:00 EST, Weight Dosing Start Date: 09/16/23 Status: Ordered Quantity: 30.0 Unit: tab(s) Repeat number: 1gabapentin 800 mg oral tablet (20 sources)Anti-epileptic AgentStart: 06-05-2025 End: 59-77-7489dssr 1 tablet by mouth in the morning, [...] daily November 17, 2023 3:05pmStart: 01-11-2022 End: 36-74-7713hpfa 1 tablet by mouth in the morning, [...] tablet 3 12/25/2024 06/05/2025 Discontinued (Reorder) Start: 11-26-0512zgtw 1 tablet by mouth twice dailygabapentin 600 mg Tab 600 mg = 1 tab(s), Oral, BID, 30 Day Supply, # 60 tab(s), Refills(s) 11, Pharmacy: [facility] #[id number], 182, cm, 10/01/21 10:14:00 EST, Height/Length Dosing, 131.2, kg, 10/01/21 10:14:00 EST, Weight Dosing Start Date: 10/01/21 Status: OrderedComment on above:Take 600 mg by mouth three times a day.12 hr guaiFENesin 600 mg extended release oral tablet (20 sources)Start: 17-78-6486jase 2 tablets by mouth twice daily, then take 1 tablet by mouth every twelve hoursGuaifenesin (Mucinex) 600 mg Tablet Extended Release 12hr Active 1200 MG PO Twice daily 0 November 17, 2023 12:00amStart: 21-55-0865mvbw 2 tablets by mouth twice dailyguaiFENesin 600 mg ER Tab 1,200 mg = 2 tab(s), Oral, BID, # 14 tab(s), Refills(s) 0, [id number], 182, cm, 06/11/23 13:54:00 EDT, Height/Length Dosing, 139.6, kg, 06/11/23 13:54:00 EDT,Weight Dosing Start Date: 06/15/23 Status: OrderedStart: 06-15-2023 End: 63-95-7309yxyq 1 tablet by mouth in the morning, then take 1 tablet by mouth every twelve hours at bedtimeguaiFENesin (Mucinex) 600 MG 12 hr tablet Take 1,200 mg by mouth in the morning and 1,200 mg beforebedtime. 06/15/2023 03/25/2025 Discontinued (Therapy completed)Comment on above:Take 1,200 mg by mouth.3 ml insulin aspart, human 100 unt/ml pen injector (20 sources)Insulin AnalogStart: 06-05-2025 End: 87-05-4690vqkdmkj aspart, with niacinamide, (Fiasp FlexTouch) 100 UNIT/ML injection Indications: Type 2 diabetes mellitus with hyperglycemia, with long- term current use of insulin (HCC) Inject 40 Units under the skin in the morning and 40 Units at noon and 40 Units in the evening. Inject with meals. 108 mL 1 06/05/2025 12/02/2025 ActiveStart: 10-12-2023 End: 31-35-6038Iueqp FlexTouch 100 UNIT/ML injection inject -20 PLUS ISS #2 (EXPECT DAILY DOSE OF 80 UNITS) 10/12/2023 03/17/2025 Discontinued (Therapy completed)Start: 70-08-1417JCGKS FLEXTOUCH U-100 INSULIN 100 unit/mL (3 mL) pen inject 15-20 PLUS ISS #2 (EXPECT DAILY DOSEOF 80 UNITS) 0 10/12/2023 Active Start: 28-54-0452PsujVQP FlexPen 100 units/mL injectable solution See Instructions, 250 tidac. Max 150 units a day, # 45 mL, Refills(s) 5, [facility]acy: [facility] #[id number], 182, cm, 09/13/22 13:17:00 EST, Height/Length Dosing, 140.8, kg, 09/13/22 13:17:00 EST, Weight Dosing Start Date: 09/13/22 Status: Ordered Quantity: 45.0 Unit: mL Repeat number: 6Start: 81-67-7310LvekRHN FlexPen 100 units/mL injectable solution See Instructions, 250 tidac. Max 150 units a day, # 45 mL, Refills(s) 5, Pharmacy: [facility] #[id number], 182.9, cm, 03/29/22 13:07:00 EDT, Height/Length Dosing, 126.7, kg, 03/29/22 13:07:00 EDT... Start Date: 03/29/22 Status: OrderedStart: 71-73-6821JfogPPJ FlexPen 100 units/mL injectable solution See Instructions, 250 tidac. Max 120 units a day, # 15 mL, Refills(s) 3, [facility], 182, cm, 10/01/21 10:14:00 EST, [...] 100 unt/ml injectable solution (1 source)Insulin AnalogStart: 85-97-6220rhzlrb 18 mL by subcutaneous injection once daily in the eveningLevemir FlexTouch 100 units/mL subcutaneous solution 18 mL, inject 40 units subcutaneously every morning and 30 units every evening, Refills(s) 0 Start Date: 12/28/21 Status: Ordered3 ml insulin glargine 100 unt/ml pen injector (20 sources)Insulin AnalogStart: 06-05-2025 End: 71-62-1462ojbfjrh glargine (Lantus SoloStar) 100 UNIT/ML pen Indications: Type 2 diabetes mellitus with hyperglycemia, with long-term current use of insulin (HCC) Inject 80 Units under the skin at bedtime 3 mL12 06/05/2025 06/05/2026 ActiveStart: 03-07-2025 End: 37-30-8850mpefow 30 [IU] by subcutaneous injection in the morningBasaglar KwikPen 100 UNIT/ML pen Inject 30 Units under the skin in the morning and 30 Units before bedtime. 03/07/2025 06/05/2025 Discontinued (Formulary change) Start: 95-23-7576Wllyqse Glargine U-300 Conc (Toujeo Max U-300 Solostar) 300 unit/mL (3 mL) Insulin Pen Active 35 UNIT SUBCUT Twice daily 3 June 21, 2023 12:26pmStart: 06-19-2023 End: 94-56-3192Paaqzif Glargine U-300 Conc (Toujeo Max U-300 Solostar) 300 unit/mL (3 mL) Insulin Pen Pdvxonfyoqgw35 UNIT SUBCUT Twice daily June 19, 2023 12:00am June 21, 2023 1:50pmStart: 17-12-3391Yiffii Max SoloStar 300 units/mL subcutaneous solution 40 unit(s), SubCutaneous, BID, # 12 mL, Refil ls(s) 5, Pharmacy: [facility] #[id number], 182, cm, 09/13/22 13:17:00 EST, Height/Length Dosing, 140.8, kg, 09/13/22 13:17:00 EST, Weight Dosing Start Date: 09/13/22 Status: Ordered Quantity: 12.0 Unit: mL Repeat number: 6Start: 94-95-0382Gqmrgu Max SoloStar 300 units/mL subcutaneous solution 40 unit(s), SubCutaneous, BID, # 12 mL, Refills(s) 5, Pharmacy: [facility] #[id number], 182.9, cm, 03/29/22 13:07:00 EDT, Height/Length Dosing, 126.7, kg, 03/29/22 13:07:00 EDT, Weight Dosing Start Date: 03/29/22 Status: OrderedStart: 63-25-5616zozalb 40 [IU] by subcutaneous injection in the morning, then inject 30 [IU] by subcutaneous injection in the eveningLantus Solostar Pen 100 units/mL subcutaneous solution See Instructions, 40 units AM, 30 units PM, # 30 mL, Refills(s) 11, [facility], 182, cm, 01/11/22 13:57:00 EDT, Height/Length Dosing, 130, kg, 01/11/22 13:57:00 EDT, Weight Dosing Start Date: 01/11/22 Status: OrderedStart: 29-01-2960jmsfpb 40 [IU] by subcutaneous injection in the morning, then inject 30 [IU] by subcutaneous injection in the eveningLantus Solostar Pen 100 units/mL subcutaneous solution See Instructions, 40 units AM, 30 units PM, # 30 mL, Refills(s) 11, [facility], 182, cm, 01/11/22 13:57:00 EDT, Height/Length Dosing, 130, kg, 01/11/22 13:57:00 EDT, Weight Dosing Start Date: 01/11/22 Status: OrderedStart: 31-72-2344Twjnzl Solostar Pen 100 units/mL subcutaneous solution 65 unit(s), SubCutaneous, Daily, Refills(s) 0 Start Date: 07/27/21 Status: Ordered End: 45-12-2924aylddk 20 [IU] by subcutaneous injection in the morninginsulin glargine (Toujeo Max SoloStar) 300 UNIT/ML injection Inject 20 Units under the skin in the morning and 20 Units before bedtime. 07/15/2024 Discontinued (Formulary change)Insulin Glargine U-300 Conc (Toujeo Solostar U-300 Insulin) 300 unit/mL (1.5 mL) insulin pen (2 sources)Start: 24-13-8741Nyfwpuu Glargine U-300 Conc (Toujeo Solostar U-300 Insulin) 300 unit/mL (1.5 mL) insulin pen Qazgyv67 UNIT SUBCUT Daily at bedtime 4.5 November 17, 2023 3:01pmStart: 11-13-2023 End: 52-44-8609Bjdqggl Glargine U-300 Conc (Nabil Solostar U-300 Insulin) 300 unit/mL (1.5 mL) insulin pen Discontinued 50 UNIT SUBCUT Daily at bedtime November 13, 2023 12:00am November 17, 2023 3:02pmInsulin Lispro (Humalog U-100 Insulin) 100 unit/mL Solution (6 sources)Start: 30-23-1510qnsekx 1 dose by subcutaneous injection once before mealtimeInsulin Lispro (Humalog U-100 Insulin) 100 unit/mL Solution Active 1 sliding scale dose SUBCUT 3x/Day before meals & bedtime June 19, 2023 12:00am Sliding scaleStart: 05-85-4298Bobaegb Lispro (Humalog U-100 Insulin) 100 unit/mL Solution Active 1 sliding scale dose SOLUTION June 18, 2023 11:00pm Sliding scaleStart: 61-38-2653Ivrkxsm Lispro (Humalog U-100 Insulin) 100 unit/mL Solution Active SOLUTION June 19, 2023 12:00am Sliding scale isopropyl alcohol 0.7 ml/ml medicated pad (9 sources)Start: 52-28-8899Bijpvnu Swabs (Alcohol Prep) 70 % pads USE TO TEST BLOOD SUGAR 3 TIMES PER DAY 12/21/2024 Activelinagliptin 2.5 mg / metFORMIN hydrochloride 1000 mg oral tablet (20 sources)Biguanide, Dipeptidyl Peptidase 4 InhibitorStart: 76-03-1065ejid 2.5-1000 mg by mouth once dailyLinagliptin-Metformin (Jentadueto) 2.5-1,000 mg tablet Active 1 TAB PO Daily October 1241:53pmStart: 04-14-2023 End: 58-51-0332Kkwlrfummg 2.5 mg-1000 mg oral tablet 1 tab(s), Oral, BID, 180 tab(s), Refill(s) 4, [facility] #[id number], 182.9, cm, 12/02/22 10:56:00 EDT, Height/Length Dosing, 139.6, kg, 12/02/22 10:56:00 EDT, Weight Dosing Start Date: 04/14/23 Status: Ordered Quantity: 180.0 Unit: tab(s) Repeat number: 5 Start: [id number] 2.5 mg-1000 mg oral tablet 1 tab(s), Oral, BID, 180 tab(s), Refill(s) 4, [facility] #[id number], 182.9, cm, 03/29/22 13:07:00 EDT, Height/Length Dosing, 126.7, kg, 03/29/22 13:07:00 EDT, Weight Dosing Start Date: 04/04/22 Status: OrderedStart: 64-39-9295blna 1 tablet by mouth twice daily Jentadueto [...] oral tablet (20 sources)Angiotensin 2 Receptor BlockerStart: 58-49-5518phrw 1 tablet by mouth once dailylosartan 50 mg Tab 50 mg = 1 tab(s), Oral, Daily, # 30 tab(s), Refills(s) 1, Pharmacy: [facility] #[id number], 182, cm, 12/20/24 13:40:00 EDT, Height/Length Dosing, 118.4, kg, 12/20/24 13:40:00 EDT, Weight Dosing Start Date: 12/21/24 Status: Ordered Quantity: 30.0 Unit: tab(s) Repeat number: 2 In dication: Essential (primary) hypertensionStart: 05-22-2023 End: 58-60-3825ibwb 1 tablet by mouth once dailylosartan (Cozaar) 100 MG tablet Indications: Type 2 diabetes mellitus with hyperglycemia, with long-term current use of insulin (HCC) Take 1 tablet (100 mg) by mouth Daily 100 tablet 1 12/03/2024 ActiveStart: 28-76-3377slpm 1 tablet by mouth once dailylosartan 100 mg Tab 100 mg = 1 tab(s), Oral, Daily, # 90 tab(s), Refills(s) 3, [id number], 182.9, cm, 03/29/22 13:07:00 EDT, Height/Length Dosing, 126.7, kg, 03/29/22 13:07:00 EDT, Weight Dosing Start Date: 03/29/22 Status: OrderedStart: 25-54-9028mddb 1 tablet by mouth once dailylosartan 100 mg Tab 100 mg = 1 tab(s), Oral, Daily, # 90 tab(s), Refills(s) 3, [facility]: [facility], 183, cm, 04/20/21 11:36:00 EDT, Height/Length Dosing, 136, kg, 04/20/21 11:41:00 EDT, Weight Dosing Start Date: 04/20/21 Status: Orderedmethocarbamol 750 mg oral tablet (1 source)Muscle RelaxantStart: 12-19-2024 End: 14-64-0752mmno 1 tablet by mouth three times dailyRobaxin-750 oral tablet 750 mg = 1 tab(s), Oral, TID, X 3 day(s), # 9 tab(s), Refills(s) 0, Pharmacy: [facility] #[id number], 183, cm, 12/19/24 10:26:00 EDT, Height/Length Dosing, 110.8, kg, 12/19/24 10:26:00 EDT, Weight Dosing Start Date: 12/19/24 Stop Date: 12/22/24 Status: Ordered Quantity: 9.0Unit: tab(s) Repeat number: 1Misc Prescription (11 sources)Start: 18-79-2116Ccfw Prescription 0 Start Date: 09/19/22 Status: OrderedMisc. Devices (Cane) misc (20 sources)Start: 13-96-4953Wbcg. Devices (Cane) misc Indications: Difficulty walking 1 each continuously 1 each 07/03/2024 ActiveNovoLOG FlexPen 100 units/mL injectable solution (2 sources)Start: 24-53-3463QmgwIPA FlexPen 100 units/mL injectable solution See Instructions, 250 tidac. Max 120 units a day, # 15 mL, Refills(s) 3, [facility], 182, cm, 10/01/21 10:14:00 EST, Height/Length Dosing, 131.2, kg, 10/01/21 10:... Start Date: 10/01/21 Status: Orderedoxybutynin chloride 5 mg oral tablet (16 sources)Cholinergic Muscarinic AntagonistStart: 39-20-2703wgok 1 tablet by mouth twice dailyoxybutynin 5 mg Tab See Instructions, 1 tab(s) Oral bid after procedure, # 20 tab(s), Refills(s) 0,Pharmacy: [facility] #[id number], 180, cm, 01/15/24 16:27:00 EDT, Height/Length Dosing, 140, kg, 01/15/24 16:27:00 EDT, Weight Dosing Start Date: 02/07/24 Status: OrderedStart: 84-31-0918roou 1 tablet by mouth twice dailyoxybutynin 5 mg Tab See Instructions, 1 tab(s) Oral bid after procedure, # 10 tab(s), Refills(s) 0,Pharmacy: [facility] #[id number], 183, cm, 11/20/23 12:53:00 EDT, Height/Length Dosing, 143.5, kg, 11/11/23 9:09:00 EDT, Weight Dosing Start Date: 11/20/23 Status: Orderedpantoprazole 40 mg delayed release oral tablet (20 sources)Proton Pump InhibitorStart: 04-20-2021 End: 69-88-4029cmoe 1 tablet by mouth once dailyProtonix 40 mg Tab-DR 40 mg = 1 tab(s), Oral, Daily, # 30 tab(s), Refills(s) 6, Pharmacy: [facility] #[id number], 182, cm, 05/08/23 10:15:00 EDT, Height/Length Dosing, 137, kg, 05/08/23 10:15:00 EDT, WeightDosing Start Date: 05/08/23 Status: Ordered Quantity: 30.0 Unit: tab(s) Repeat number: 7 Indication:Gastro-esophageal reflux disease without esophagitis Start: 02-04-8778fdte 1 tablet by mouth once dailyPantoprazole [address] Tab 40 mg = 1 tab(s), Oral, Daily, # 90 tab(s), Refills(s) 3, [facility]: [facility], 183, cm, 04/20/21 11:36:00 EDT, Height/Length Dosing, 136, kg, 04/20/21 11:41:00 EDT, Weight Dosing Start Date: 04/20/21 Status: OrderedComment on above:Take 40 mg by mouth once daily.Sennosides (Senna Laxative) 8.6 mg Tablet (1 source)Start: 36-81-3968lipv 1 tablet by mouth twice dailySennosides (Senna Laxative) 8.6 mg Tablet Active 8.6 MG PO Twice daily 0 November 17, 2023 12:00am tamsulosin hydrochloride 0.4 mg oral capsule (20 sources)alpha-Adrenergic BlockerStart: 10-02-2023 End: 21-21-0803xwun 1 capsule by mouth once dailytamsulosin 0.4 mg Cap 0.4 mg = 1 cap(s), Oral, Daily, X 30 day(s), # 30 cap(s), Refills(s) 3, [facility]: [id number], 181.8, cm, 09/26/23 9:01:00 EST, Height/Length Dosing, 136, kg, 09/26/23 9:01:00 EST, Weight Dosing Start Date: 10/02/23 Stop Date: 01/30/24 Status: OrderedComment on above:Take 1 capsule by mouth every afternoon.Toujeo SoloStar (20 sources)Start: 97-96-3873dfccmq 50 [IU] by subcutaneous injection at bedtime Toujeo SoloStar 50 unit(s), SubCutaneous, Bedtime, Refills(s) 0 Start Date: 09/12/23 Status: OrderedRepeat number: 1Start: 61-29-2401kbniob 50 [IU] by subcutaneous injection at bedtimeToujeo SoloStar 50 unit(s), SubCutaneous, Bedtime, Refills(s) 0 Start Date: 09/12/23 Status: OrderedVentolin HFA 90 mcg/inh Aerosol (20 sources)Start: 93-60-4386igcb 2 puff(s) by inhalation every four hours Ventolin HFA 90 mcg/inh Aerosol 2 puff(s), Inhalation, q4hr Shortness of breath or wheezing, 8.5 gm, Refill(s) 5, [facility] #[id number], 182.9, cm, 06/17/22 13:13:00 EDT, Height/Length Dosing, 131.5, kg, 06/17/22 13:13:00 EDT, Weight Dosing Start Date: 06/17/22 Status: Ordered Quantity: 8.5 Unit: g Repeat number: 6Start: 34-28-7678ctra 2 puff(s) by inhalation every four hoursVentolin HFA 90 mcg/inh Aerosol 2 puff(s), Inhalation, q4hr Shortness of breath or wheezing, 8.5 gm, Refill(s) 5, [facility] #[id number], 182.9, cm, 06/17/22 13:13:00 EDT, Height/Length Dosing, 131.5, kg, 06/17/22 13:13:00 EDT, Weight Dosing Start Date: 06/17/22 Status: OrderedVitamin D3 2000 intl units (20 sources)Start: 49-80-9828Svobymp D3 2000 intl units 50 mcg, Chewed, Daily, Refills(s) 0 Start Date: 09/19/22 Status: OrderedZinc (20 sources)Start: 17-13-3055Nkai 140 mg (as elemental zinc 50 mg) oral tablet 140 mg = 1 tab(s), Oral, Daily, Refills(s) 0 Start Date: 09/19/22 Status: Ordered Completed/Discontinued Medications MedicationDrug Class(es)DatesSig (Normalized)Sig (Original)amLODIPine 10 mg oral tablet (20 sources)Dihydropyridine Calcium Channel BlockerStart: 05-22-2023 End: 12-36-6462txaq 10 mg by mouth twice dailyAmlodipine Discontinued 10 MG PO Twice daily June 19, 2023 12:00am June 21, 2023 1:50pmStart: 04-20-2021 End: 66-72-1174jkxi 10 mg by mouth once dailyAmlodipine Discontinued 10 MG PO Daily October 06, 2023 1:00am October 12, 2023 1:55pmcephalexin 500 mg oral capsule (5 sources)Cephalosporin AntibacterialStart: 10-06-2023 End: 02-63-1091gjlx 500 mg by mouth four times dailyCephalexin Discontinued 500 MG PO Four times daily October 06, 2023 1:00am October 12, 2023 1:55pm Start: 09-24-2023 End: 98-62-7957ybrh 1 capsule by mouth every six hoursKeflex 500 mg Cap 500 mg = 1 cap(s), Oral, q6hr, X 5 day(s), # 20 cap(s), Refills(s) 0, Pharmacy: [facility] #[id number], 180, cm, 09/24/23 20:13:00 EST, Height/Length Dosing, 141.4, kg, 09/24/23 20:13:00 EST, Weight Dosing Start Date: 09/24/23 Stop Date: 09/29/23 Status: OrderedContinuous Blood Gluc Predictive Maintenance Technician (FreeStyle Sage 3 Opheim) device (20 sources)Start: 09-25-2023 End: 17-22-4379Czsdkplzaf Blood Gluc Predictive Maintenance Technician (FreeStyle Sage 3 Opheim) device Indications: Type 2 diabetes mellitus with hyperglycemia, with long-term current use of insulin (HCC) , Long-term insulin use (HCC) 1 each continuously 1 each 09/25/2023 06/06/2025 Discontinued (Other)Start: 33-94-3604Ipsnzggnef Blood Gluc Predictive Maintenance Technician (FreeStyle Saeg 3 Opheim) device Indications: Type 2 diabetes [facility] with hyperglycemia, with long-term current use of insulin (HCC) , Long-term insulin use (HCC) 1 each continuously 1 each 09/25/2023 ActiveStart: 09-25-2023 Continuous Blood Gluc Predictive Maintenance Technician (FreeStyle Sage 3 Opheim) device Indications: Type 2 diabetes mellitus with hyperglycemia, with long-term current use of insulin (CMS/HCC) , Long-term insulin use (CMS/HCC) 1 each continuously 1 each 09/25/2023 ActiveContinuous Blood Gluc Sensor (FreeStyle Sage 3 Sensor) misc (20 sources)Start: 09-25-2023 End: 83-20-6908Wbfzjnnqet Blood Gluc Sensor (FreeStyle Sage 3 Sensor) [facility] Indications: Type 2 diabetes mellitus with hyperglycemia, [...] (fourteen) days 6 each 3 09/25/2023 ActiveStart: 04-61-2489Imwpcgkqwt Blood Gluc Sensor (FreeStyle Sage 3 Sensor) [facility] Indications: Type 2 diabetes mellitus with hyperglycemia, with long-term current use of insulin (CMS/HCC) , Long-term insulin use (CMS/HCC) 1 each every 14 (fourteen) days 6 each 09/25/2023 ActiveGlucometer (20 sources)Start: 25-48-9732Jorxdktpmw Glucometer, See Instructions, 1 EA, 0, Dispense 1 Glucometer, [facility] #[id number], Supply, 180, cm, 09/12/23 13:35:00 EST, Height/Length Dosing, 149.8, kg, 09/12/23 13:35:00 EST, Weight DosingStart Date: 09/16/23 Status: Ordered Quantity: 1.0 Unit: EA Repeat number: 1 Indication: Type 2 diabetes mellitus with diabetic neuropathy, unspecifiedStart: 09-16-2023 Glucometer Glucometer, See Instructions, 1 EA, 0, Dispense 1 Glucometer, [facility] #[id number], Supply, 180, cm, 09/12/23 13:35:00 EST, Height/Length Dosing, 149.8, kg, 09/12/23 13:35:00 EST, Weight DosingStart Date: 09/16/23 Status: Ordered Start: 12-72-6117Ouihbwqrgl Glucometer, See Instructions, 1 EA, 0, Dispense 1 Glucometer, [facility] #[id number], Supply, 182, cm, 09/13/22 13:17:00 EST, Height/Length Dosing, 140.8, kg, 09/13/22 13:17:00 EST, Weight DosingStart Date: 11/03/22 Status: OrderedStart: 02-56-9371Mknylmaavu Glucometer, See Instructions, 1 EA, 0, Dispense 1 Glucometer, [facility] #[id number], Supply, 182, cm, 10/01/21 10:14:00 EST, Height/Length Dosing, 131.2, kg, 10/01/21 10:14:00 EST, Weight Dosing Start Date: 10/28/21 Status: OrderedGlucose (1 source)Start: 84-69-9361Erjbaxr Kit Glucose Kit, See Instructions, 1 EA, 0, Glucose meter. Include autolet, matching test strips, lancets, & alcohol wipes, #100 or as allowed by insurance; DX: E11.9, [facility] #[id number], Supply, 182, cm, 12/20/24 13:40:00 EDT, Height/Length Dosing, 118.4, kg, 12/20/24 13:40:00EDT, Weight Dosing Start Date: 12/21/24 Status: Ordered Quantity: 1.0 Unit: EA Repeat number: 1 Indication: Hyperglycemia, unspecifiedhydrALAZINE hydrochloride 10 mg oral tablet (20 sources)Arteriolar VasodilatorStart: 10-28-2023 End: 24-89-1734vagl 1 tablet by mouth every twelve hourshydrALAZINE (Apresoline) 10 MG tablet Take 10 mg by mouth every 12 (twelve) hours 10/28/2023 01/22/2025 Discontinued (Reorder)Start: 10-28-2023 End: 20-62-7379hfnw 1 tablet by mouth every twelve hourshydrALAZINE (APRESOLINE) 10 mg tablet Take 1 tablet by mouth every 12 hours. 60 tablet 2 10/28/2023 01/26/2024 ActiveStart: 10-12-2023 End: 65-67-5364kzhd 75 mg by mouth twice dailyHydralazine Discontinued 75 MG PO Twice daily 180 60 October 12, 2023 1:00am November 13, 2023 4:40pmComment on above:Take 1 tablet by mouth every 12 hours.hydroCHLOROthiazide 25 mg / lisinopril 20 mg oral tablet (20 sources)Thiazide Diuretic, Angiotensin Converting Enzyme InhibitorStart: 06-21-2023 End: 73-56-4130evtd 1 tablet by mouth in the morninglisinopril- hydroCHLOROthiazide 20-25 MG tablet Take 1 tablet by mouth in the morning. 06/21/2023 03/17/2025 Discontinued (Discontinued by another clinician)Start: 06-21-2023 End: 95-58-9075wymy 1 tablet by mouth once dailyLisinopril-Hydrochlorothiazide Discontinued 1 TAB PO Daily June 21, 2023 12:00am October 06, 2023 10:46pmInsulin Glargine U-300 Conc (Toujeo Max U-300 Solostar) 300 unit/mL (3 mL) Insulin Pen (5 sources)Start: 11-13-2023 End: 52-03-5569hszpao 40 [IU] by subcutaneous injection twice daily, then inject 50 [IU] by subcutaneous injectiononce at bedtimeInsulin Glargine U-300 Conc (Toujeo Max U-300 Solostar) 300 unit/mL (3 mL) Insulin Pen Bnlzocwajfhg55 UNIT SUBCUT Twice daily November 13, 2023 12:00am November 17, 2023 3:02pm 40 units BID and 50 units q HSStart: 06-21-2023 End: 35-91-8686Cwhbsqk Glargine U-300 Conc (Toujeo Max U-300 Solostar) 300 unit/mL (3 mL) Insulin Pen Blufpwduofji02 UNIT SUBCUT Twice daily June 21, 2023 12:26pm November 13, 2023 4:53pmStart: 64-89-4726Knfkwdu Glargine U-300 Conc (Toujeo Max U-300 Solostar) [...] bedtime.Insulin Lispro (2 sources)Insulin AnalogStart: 06-15-2023 End: 92-10-0505Etwetem Lispro Sliding Scale 0-10 Unit(s), Injection-Insulin, SubCutaneous, Start date 06/15/23 7:30:00 AM EDT Start Date: 06/15/23 Stop Date: 06/15/23 Status: CompletedStart: 06-12-2023 End: 53-36-5075Dmevdbh Lispro Sliding Scale 0-10 Unit(s), Injection-Insulin, SubCutaneous, Start date 06/12/23 4:30:00 PM EDT Start Date: 06/12/23 Stop Date: 06/12/23 Status: Completed3 ml insulin, regular, human 500 unt/ml pen injector (20 sources)InsulinStart: 51-71-9072JhzlJQT R KwikPen (Concentrated) human recombinant 500 units/mL subcutaneous solution See Instructions, inject 40 units under the skin in the morning, 40 in the evening and 20 at bedtime., # 6 mL, Refills(s) 1, Pharmacy: [facility] #[id number], 182, cm, 12/20/24 13:40:00 EDT, Height/Length Dosing, 118.4, kg, 12/20/24 13:40:00 EDT, Weight Dosing Start Date: 12/21/24 Status: Ordered Quantity: 6.0 Unit: mL Repeat number: 2 Indication: Type 2 diabetes mellitus with diabetic neuropathy, unspecifiedStart: 07-15-2024 End: 48-40-7631zizdkb 50 [IU] by subcutaneous injection in the [...] (20 sources)Dipeptidyl Peptidase 4 InhibitorStart: 09-04-2024 End: 42-80-1284xxta 1 tablet by mouth once dailylinaGLIPtin (Tradjenta) 5 MG tablet Indications: Type 2 diabetes mellitus with hyperglycemia, with long-term current use of insulin (HCC) Take 1 tablet (5 mg) by mouth Daily 90 tablet 1 12/25/2024 06/05/2025 Discontinued (Reorder)magnesium oxide 200 mg oral tablet (20 sources)Start: 06-21-2023 End: 67-93-4333ycts 200 mg by mouth once dailyMagnesium Oxide Discontinued 200 MG PO Daily June 21, 2023 12:00am October 06, 2023 10:46pmStart: 12-29-6262aizjucred oxide 165 mg, Chewed, Daily, Refills(s) 0 Start Date: 09/19/22 Status: OrderedmethylPREDNISolone (20 sources)CorticosteroidStart: 06-21-2024 End: 30-22-8408osbsrlMCXSTULowwur (Medrol Dospak) 4 MG tablets Indications: Non- recurrent acute serous otitis media of right ear Follow schedule on package instructions 21 tablet 06/21/2024 03/17/2025 Discontinued (Therapy completed) Start: 62-50-5829xlrtvkAJLBLOUlloey (Medrol Dospak) 4 MG tablets Indications: Non-recurrent acute serous otitis media of right ear Follow schedule on package instructions 21 tablet 06/21/2024 Activepotassium chloride 10 meq extended release oral capsule (20 sources)Start: 06-21-2023 End: 35-12-0093lgteliwwz chloride ER (Micro-K) 10 MEQ ER capsule Take 10 mEq by mouth Daily 06/21/2023 03/17/2025 Discontinued (Discontinued by another clinician)predniSONE 10 mg oral tablet (18 sources)Start: 06-15-2023 End: 58-00-1475wbpb 10 mg by mouth once dailyPrednisone Discontinued [...] tablet (20 sources)Nonergot Dopamine AgonistStart: 04-29-2024 End: 45-94-2782cjdk 1 tablet by mouth at bedtimerOPINIRole (Requip) 2 MG tablet Indications: RLS (restless legs syndrome) Take 1 tablet (2 mg) by mouth at bedtime 90 tablet 3 04/29/2024 03/25/2025 Discontinued (Non-compliance)Start: 05-22-2023 End: 39-23-3211zjyv 1 tablet by mouth once daily in the eveningropinirole 1 mg Tab 1 mg = 1 tab(s), Oral, qPM, # 90 tab(s), Refills(s) 4, [facility]acy: [facility] #[id number], 182, cm, 05/22/23 13:30:00 EDT, Height/Length Dosing, 139.6, kg, 05/22/23 13:30:00 EDT, Weight Dosing Start Date: 05/22/23 Status: Ordered Quantity: 90.0 Unit: tab(s) Repeat number: 5Start: 36-28-8157ptnd 1 tablet by mouth once daily in the eveningropinirole 1 mg Tab 1 mg = 1 tab(s), Oral, qPM, # 90 tab(s), Refills(s) 4, [id number], 182.9, cm, 03/29/22 13:07:00 EDT, Height/Length Dosing, 126.7, kg, 03/29/22 13:07:00 EDT, Weight D osing Start Date: 03/29/22 Status: OrderedStart: 86-99-9397uhxc 1 tablet by mouth once daily in [...] 160/4.5 inhalation aerosol with adapter (20 sources)Start: 57-77-2285ztmy 1 dose by inhalation twice dailySymbicort 160/4.5 inhalation aerosol with adapter 2 puff(s), Inhalation, BID, 1 EA, Refill(s) 6, [facility] #[id number], 182, cm, 05/08/23 10:15:00 EDT, Height/Length Dosing, 137, kg, 05/08/23 10:15:00 EDT,Weight Dosing Start Date: 05/08/23 Status: Ordered Quantity: 1.0 Unit: EA Repeat number: 7 Indication: Unspecified asthma, uncomplicatedStart: 96-56-6889anzf 1 dose by inhalation twice dailySymbicort 160/4.5 inhalation aerosol with adapter 2 puff(s), Inhalation, BID, 1 EA, Refill(s) 6, [facility] #[id number], 182, cm, 05/08/23 10:15:00 EDT, Height/Length Dosing, 137, kg, 05/08/23 10:15:00 EDT,Weight Dosing Start Date: 05/08/23 Status: OrderedStart: 05-08-2023 End: 27-83-7944eaii 1 dose by inhalation twice dailySymbicort 160/4.5 inhalation aerosol with adapter 2 puff(s), Inhalation, BID for 30 day(s), 1 EA, Refill(s) 6, [facility] #[id number], 182, cm, 05/08/23 10:15:00 EDT, Height/Length Dosing, 137, kg, 05/08/2310:15:00 EDT, Weight Dosing Start Date: 05/08/23 Stop Date: 12/04/23 Status: OrderedtiZANidine 2 mg oral tablet (20 sources)Central alpha-2 Adrenergic AgonistStart: 10-06-2023 End: 40-97-0389wsla 2 mg by mouth every eight hoursTizanidine Discontinued 2 MG PO Every 8 hours October 06, 2023 1:00am October 12, 2023 1:55pmStart: 08-91-3965kegp 1 capsule by mouth every eight hours as needed for painZanaflex 2 mg oral capsule 2 mg = 1 cap(s), Oral, q8hr, PRN Muscle pain, # 180 cap(s), Refills(s) 0Start Date: 09/12/23 Status: Ordered Quantity: 180.0 Unit: cap(s) Repeat number: 1Start: 61-30-4215bhkf 1 tablet by mouth every eight hours for muscle spasmstiZANidine (Zanaflex) 2 MG tablet Indications: Right groin pain Take 1 tablet (2 mg) by mouth every8 (eight) hours if needed for muscle spasms 90 tablet 0 07/27/2023 Activetorsemide 20 mg oral tablet (20 sources)Loop DiureticStart: 10-12-2023 End: 57-96-7276jovq 3 tablets by mouth in the morning, then take 3 tablets by mouth in the evening, then take 3 tablets by mouth at bedtimetorsemide (Demadex) 20 MG tablet Take 60 mg by mouth in the morning and 60 mg in the evening and 60 mg before bedtime. 10/12/2023 03/17/2025 Discontinued (Discontinued by another clinician)Start: 93-69-0166lqhq 40 mg by mouth once dailyTorsemide Active 40 MG PO DAILY@0800 0 November 17, 2023 12:00amComment on above:Take 3 tablets by mouth two times a day. Problems Active Problems Problem ClassificationProblemDateDocumented DateEpisodic/ChronicAcute and unspecified renal failure (20 sources)Acute renal failure syndrome; Translations: [Acute kidney failure, unspecified]Onset: 907517-97-7201OnoswwxxAwinftgovc disorders (2 sources)Grief finding; Translations: [Adjustment disorder with depressed mood]03-64-3009JnbfgrhGrrcbrc disorders (3 sources)Anxiety; Translations: [Anxiety disorder, unspecified]01-22-2025 ChronicAsthma (20 sources)Asthma; Translations: [Unspecified asthma, uncomplicated]Onset: 544792-26-4289CpvxnhdIyihlbt kidney disease (20 sources)Chronic kidney disease stage 3; Translations: [Chronic kidney disease stage 3B ]Onset: 09-13-2022 Resolved: 147276-27-9421FtbyzvaAvwatzg obstructive pulmonary disease and bronchiectasis (20 sources)Chronic obstructive lung disease; Translations: [Chronic obstructive pulmonary disease, unspecified]Onset: 11-11-2023 Resolved: 405510-75-1021YaopidrJijjhbf obstructive pulmonary disease and bronchiectasis (1 source)Bronchitis; Translations: [Bronchitis, not specified as acute or chronic]Onset: 76-48-0622YxamczxpJlilwqnehrdk of device; implant or graft (3 sources)Complication associated with genitourinary device; Translations: [Unspecified complication of genitourinary prosthetic device, implant and graft, initial encounter]Onset: 45-57-4097JcmbyzxiTloiqajmdo heart failure; nonhypertensive (20 sources)Right ventricular failure; Translations: [Right heart failure, unspecified]Onset: 357139-18-1722QnjdnlrCewgzkak mellitus with complications (20 sources)Hyperglycemia due to type 2 diabetes mellitus; Translations: [Macular edema and retinopathy due to type 2 diabetes mellitus]Onset: 01-11-2022 Resolved: 483163-97-2124EooylctZnkwngi on above:noted in 03/11/2021 Diabetic Eye Exam page 5. added per outpatient CDI policy.Disorders of lipid metabolism (20 sources)Hyperlipidemia; Translations: [Hyperlipidemia, unspecified]Onset: 366114-70-5596EaliygeUlqwbemeae disorders (20 sources)Gastroesophageal reflux disease; Translations: [Gastroesophageal reflux disease without esophagitis]Onset: 855002-87-0266CkdqndjUnehrgxtj hypertension (20 sources)Hypertensive disorder; Translations: [Essential hypertension]Onset: 428767-22-5520PwzjewaMlaox and electrolyte disorders (20 sources)Dehydration; Translations: [Dehydration]Onset: 07-86-3009Owybodtw Headache; including migraine (3 sources)Upwgcbxg16-63-2538VzpvcszlDdmrn valve disorders (20 sources)Pulmonary valve fslecltq73-16-4211GmleczqYcozjpzdaxs of prostate (20 sources)Benign prostatic hypertrophy with outflow obstruction; Translations: [Benign prostatic hyperplasia with lower urinary tract symptoms]Onset: 04-38-9537OmbtrqcKcnsyhcgnylm with complications and secondary hypertension (8 sources)Hypertensive urgency ; Translations: [Hypertensive urgency]06-20-2023 ChronicImmunizations and screening for infectious disease (5 sources)Vaccination given; Translations: [Encounter for immunization]Onset: 09-62-1424KtahvrapZitk disorders (20 sources)Severe major ziauxncseu77-40-7874YjmsorzOfubtahqved deficiencies (20 sources)Vitamin D deficiency; Translations: [Vitamin D deficiency, unspecified]Onset: 697517-69-7010ZaomumqIlnpekizrjgnlz (20 sources)Osteoarthritis of knee; Translations: [Osteoarthritis of knee, unspecified]Onset: 235688-49-0891PdeeaznBissp aftercare (2 sources)Post-discharge follow-up; Translations: [Encounter for follow-up examination after completed treatment for conditions other than malignant neoplasm]58-01-2033MtxwopdiKfeqs bone disease and musculoskeletal deformities (20 sources)History of amputation of left foot; Translations: [Acquired absence of left foot]Onset: 973602-31-5575XhlsjsgPqcjt bone disease and musculoskeletal deformities (2 sources)Amputated toe of right foot; Translations: [Acquired absence of other right toe(s)]Onset: 06-56-9833XvfztmorDhgnl circulatory disease (2 sources)Pulmonary congestion ; Translations: [Other specified symptoms and signs involving the circulatory and respiratory systems]73-95-2011UmwjfgtzCnbkx connective tissue disease (1 source)Enthesopathy; Translations: [Enthesopathy, unspecified]Onset: 13-71-9583CknmtlclBwhte connective tissue disease (4 sources)Other symptoms and signs involving the musculoskeletal system; Translations: [Other musculoskeletalsymptoms referable to limbs]12-04-2024 EpisodicOther connective tissue disease (1 source)Spasm; Translations: [Other muscle spasm]Onset: 70-34-0876Dnwaqkbm Other connective tissue disease (4 sources)Cramp; Translations: [Cramp and spasm]94-50-6160QjanhwjeBmkst connective tissue disease (1 source)Cramp and spasm; Translations: [Cramp and spasm]Onset: 05-04-2025 EpisodicOther diseases of kidney and ureters (1 source)Acquired renal cyst without neoplastic change; Translations: [Cyst of kidney, acquired]Onset: 98-93-2414AtikqmaiDyafc diseases of kidney and ureters (20 sources)Cyst of dpmugr63-51-9918PhnfktrrYoazq diseases of kidney and ureters (2 sources)Urinary tract obstruction; Translations: [Other obstructive and reflux uropathy]Onset: 73-12-6313UoqzucvoJxzrs diseases of veins and lymphatics (20 sources)Lymphedema of bilateral lower limbs; Translations: [Lymphedema, not elsewhere classified]Onset: 643040-15-0605GcfuydmGnzhv diseases of veins and lymphatics (4 sources)Lymphedema; Translations: [Lymphedema, not elsewhere classified] 47-78-2134UthvhnqLkima diseases of veins and lymphatics (5 sources)Lymphedema, not elsewhere classified; Translations: [Other lymphedema]88-69-6231WmmkgrzObzxm endocrine disorders (20 sources)Hormone level - orwvvtn48-79-5902FtxkulhjWushq hereditary and degenerative nervous system conditions (20 sources)Restless legs; Translations: [Restless legs syndrome]Onset: 282978-26-8160VdsubvpVzqds lower respiratory disease (6 sources)Hypoxemia; Translations: [Hypoxemia]04-16-1983CcsmfissOzeyz lower respiratory disease (2 sources)Hypoxemia; Translations: [Hypoxemia]99-56-0203YjbfbtifZdfym lower respiratory disease (4 sources)Acute respiratory distress; Translations: [Acute respiratory distress]87-69-1552TwauuqneKcfkx lower respiratory disease (4 sources)Acute respiratory distress; Translations: [Other pulmonary insufficiency, not elsewhere classified]70-95-7675WvjvpyydGjziq lower respiratory disease (3 sources)Acute pulmonary edema; Translations: [Acute pulmonary edema]Onset: 915991-28-1596MpkhbsatDxbzc lower respiratory disease (1 source)Abnormal breathing; Translations: [Other abnormalities of breathing] Onset: 71-08-6844RhajftvcVcujq lower respiratory disease (2 sources)Cough; Translations: [Acute cough]09-07-4681CerjeowhRykln male genital disorders (1 source)Disorder of penis; Translations: [Other specified disorders of penis] Onset: 63-98-1653YnfchjqVnoit nervous system disorders (8 sources)Difficulty walking; Translations: [Difficulty in walking, not elsewhere classified]08-02-7400LjmgtduYzcap non-traumatic joint disorders (1 source)Pain in right hip joint; Translations: [Pain in right hip]Onset: 38-92-5271NvdwrxtiWwfor non-traumatic joint disorders (1 source)Pain of left shoulder joint; Translations: [Pain in left shoulder] Onset: 67-05-6410GcykkmxhCkbkm non-traumatic joint disorders (2 sources)Pain in right shoulder; Translations: [Pain in joint, shoulder region]74-52-2233DxchkfwnRoaxy nutritional; endocrine; and metabolic disorders (20 sources)Morbid obesity; Translations: [Morbid (severe) obesity due to excess calories]Onset: 130206-89-5222TzeillxGqblf nutritional; endocrine; and metabolic disorders (1 source)Obese class II; Translations: [Body mass index (BMI) 38.0-38.9, adult] Onset: 79-70-9962AzkaepsQsaww nutritional; endocrine; and metabolic disorders (10 sources)Body mass index 30+ - obesity; Translations: [Body mass index (BMI) 35.0-35.9, adult]49-54-2401CfljyohWzoqn nutritional; endocrine; and metabolic disorders (20 sources)Alveolar hypoventilation; Translations: [Morbid (severe) obesity with alveolar hypoventilation]Onset: 698230-35-4010WbfttfaWblnb nutritional; endocrine; and metabolic disorders (5 sources)Morbid (severe) obesity with alveolar hypoventilation; Translations: [Obesity hypoventilation syndrome]18-42-4787ZqlduiwXpggz nutritional; endocrine; and metabolic disorders (2 sources)Severe obesity; Translations: [Class 2 severe obesity due to excess calories with serious comorbidity and body mass index (BMI) of 38.0 to 38.9 in adult (CMS/[facility])]14-00-5618MogcdzqJxxnb nutritional; endocrine; and metabolic disorders (1 source)Obesity; Translations: [Obesity, unspecified]Onset: 08-05-9740Ammsvkl Otitis media and related conditions (2 sources)Acute non-suppurative otitis media - serous; Translations: [Acute serous otitis media, right ear]98-08-6849IqkzzftkDpguhbgxt (except that caused by tuberculosis or sexually transmitted disease) (1 source)Pneumonia; Translations: [Pneumonia, unspecified organism]Onset: 30-82-8076UdqxzzxxFrlexmel codes; unclassified (20 sources)Obstructive sleep apnea syndrome; Translations: [Obstructive sleep apnea (adult) (pediatric)]Onset: 04-68-9987FcyzkrlAfdjkgnw codes; unclassified (1 source)Obstructive sleep apnea (adult) (pediatric); Translations: [Obstructive sleep apnea (adult)(pediatric)]22-10-6395EueudozKgbtjhox codes; unclassified (2 sources)Refused procedure - parent's wish; Translations: [Procedure and treatment not carried out because of patient's decision for other reasons]Onset: 09-84-0939BvkoquazYjcjdtgh codes; unclassified (6 sources)Edema; Translations: [Edema, unspecified]21-61-1746RlkzakzeYfirksdc codes; unclassified (3 sources)Edema, unspecified; Translations: [Edema]27-57-5155AzfvhdimSayysxix codes; unclassified (1 source)Localized edema; Translations: [Bilateral leg edema]Onset: 10-23-2023 EpisodicResidual codes; unclassified (1 source)Presence of other specified devices; Translations: [Chronic indwelling Elliott catheter]Onset: 61-29-9835BmumycltBwttjrpw codes; unclassified (1 source)Device in situ; Translations: [Presence of other specified devices] Onset: 08-29-6972WzmiwxaaTnhvntdh codes; unclassified (1 source)Noncompliance with medication regimen; Translations: [Patient's other noncompliance with medicationregimen for other reason]Onset: 30-31-7431Nlmboodk Respiratory failure; insufficiency; arrest (adult) (20 sources)Acute on chronic hypoxemic and hypercapnic respiratory failure; Translations: [Acute and chronic respiratory failure with hypoxia]Onset: 506671-35-4390CppepdqLvsynhnybze injury; contusion (1 source)Contusion of left chest wall; Translations: [Contusion of left front wall of thorax, initial encounter]Onset: 92-15-0277QkwpoidmFdznututsjmp (20 sources)Long-term current use of sezwple64-85-0062Frggfhysiqdc (20 sources)Procedure not vliq85-67-1716Jcspisjyfalo (10 sources)Finding of sensation of akcrjso91-41-8312Kkznxgi tract infections (2 sources)Urinary tract infectious disease; Translations: [Urinary tract infection, site not specified]Onset: 68-73-2117Dcbzvbwz Past or Other Problems Problem ClassificationProblemDateDocumented DateEpisodic/Chronic Administrative/social admission (20 sources)Patient encounter status; Translations: [Persons encountering health services in other specified circumstances]Onset: 42-57-1538RkorquorUgkijvmt injury or internal injury (11 sources)Late effect of internal injury to intra-abdominal organs; Translations: [Unspecified injury of unspecified intra-abdominal organ, sequela] Onset: 014799-91-2917UhdkkirjBltiqkmo mellitus without complication (20 sources)Type 2 diabetes mellitus; Translations: [Diabetes mellitus]Onset: 06-11-2023 Resolved: 674986-50-6949UbvyawoJbvrgcn on above:linked DM with HLD per outpatient CDI policy.linked DM with CKD per outpatient CDI policy.Diabetes mellitus without complication (13 sources)Hyperglycemia; Translations: [Hyperglycemia, unspecified]Onset: 44-99-3183FsdlvbmuGzlgczbohgkft symptoms and ill-defined conditions (20 sources)Retention of urine; Translations: [Retention of urine, unspecified] Onset: 647951-64-6126DucbiqdzBzcgioy (20 sources)Onychomycosis; Translations: [Tinea unguium]Onset: 06-13-2023 Resolved: 848939-76-3678JsjcndxuXohnqlskyoh chest pain (20 sources)Chest wall pain; Translations: [Other chest pain]Onset: 06-21-2024 89-44-2825CmmjufyoKeqpw aftercare (20 sources)Long-term current use of insulin; Translations: [USP (current) use of insulin]Onset: 96-04-8900IjjftznbKlaje bone disease and musculoskeletal deformities (20 sources)Absence of toe; Translations: [Acquired absence of other toe(s), unspecified side]Onset: 908236-22-3715XmsbonexDrkkqce on above:noted on 12/09/2018 XR Foot 3+ Views Right. added per outpatient CDI policy.Other connective tissue disease (20 sources)Cramp in lower limb; Translations: [Cramp and spasm]Onset: 107644-23-1375JgzsocvrUinaj connective tissue disease (11 sources)Muscle weakness; Translations: [Muscle weakness (generalized)]Onset: 172092-80-0478ZsaibahbZkqfk lower respiratory disease (20 sources)Chronic cough; Translations: [Chronic cough]Onset: 06-13-2023 64-25-6944LzwteeykQpgug nervous system disorders (20 sources)Impairment of balance; Translations: [Other abnormalities of gait and mobility]Onset: 569068-36-5691SrgmyafoVdjeg nervous system disorders (11 sources)Coordination problem; Translations: [Unspecified lack of coordination]Onset: 841971-33-1769TpxmztcwBcszo non-traumatic joint disorders (20 sources)Knee joint effusion; Translations: [Effusion, unspecified knee] Onset: 06-13-2023 Resolved: 466877-47-9442SqwhgpirTvzwp non-traumatic joint disorders (20 sources)Pain in right knee; Translations: [Pain in joint, lower leg]Onset: 06-13-2023 Resolved: 880648-96-9847XtcewzsrBhmli nutritional; endocrine; and metabolic disorders (20 sources)Body mass index 40+ - severely obese; Translations: [Body mass index (BMI) 40.0-44.9, adult]Onset: 09-13-2022 Resolved: 794763-08-7959XrrwmilQgmmh screening for suspected conditions (not mental disorders or infectious disease) (8 sources)Blood chemistry abnormal; Translations: [Other specified abnormal findings of blood chemistry]Onset: 80-41-5616AykgwflnYkbewhkqtfb failure; insufficiency; arrest (adult) (20 sources)Acute respiratory failure; Translations: [Acute respiratory failure with hypoxia]Onset: 06-12-2023 Resolved: 02-39-7157LxcitfqcIzoighmorcq; intervertebral disc disorders; other back problems (20 sources)Low back pain; Translations: [Low back pain]Onset: 06-13-2023 Resolved: 743564-20-8609GwjfaxdhGekjfnglsfqo (20 sources)Methicillin resistant Staphylococcus aureus (organism)Onset: 118721-38-7257Avllmcb on above:Left FootVaricose veins of lower extremity (20 sources)Varicose veins of lower extremity; Translations: [Asymptomatic varicose veins of unspecified lower extremity]Onset: EpisodicViral infection (1 source)Disease caused by 2019-nCoV; Translations: [COVID-19]Onset: 03-09-2022 Results Test NameValueInterpretationReference RangeFacilityGlucose (Bld) [Mass/Vol] Ordered By: Amanda Cesar on 10-39-6585Rbpqifq Blood, JOO626 mg/dLMercy McCune-Brooks HospitalLaboratory - Hematology and Cell countson 47-07-5220KyW9i (Bld) [Mass fraction]15 %[facility] HospitalNo Panel InformationOrdered By: Amanda Cesar on 30-04-6237VEMO HealthcareXR Foot 3+ Views Lefton 01-82-9006PI Foot 3+ Views Left Exam Date/Time: 06/04/2025 [...] Shaquille Broussard DO Transcribed by: KAT Technologist: EmmaSouthwest General Health CenterCapillary Glucose POCon 04-87-2933Poanpjb [Mass/Vol]228 mg/sPBilv30-89OvyndhSouthwest General Health CenterComment on above:Result Comment: Notified RN/MDPerformed By: #### [id number] #### [facility] [address] [place], [place] [address]Ovnwqljyx Note-Nursingon 88-74-2069Xosduaimh Note-Nursing Discharge Note-Nursing NICOLE LORA :1960 Visit [...] Keep scheduled appointment Where: [address] [place] [address]- Business (1) Medications What How Much When Why Instructions Next Dose New insulin glargine (Insulin Glargine Prefilled Pen 100 units/ mL subcutaneous solution) 30 Units Subcutaneous 2 times a day Type 2 diabetes mellitus with hyperosmolar nonketotic hyperglycemia Refills: 1 Pickup at [facility] #[id number] Tonight at 9:00 PM New insulin lispro (HumaLOG KwikPen 100 units/ mL injectable solution) See instructions Type 2 diabetes mellitus with hyperosmolar nonketotic hyperglycemia TID PRN AC MEALS 150- 200 2 units, 200-250 4 u, 251-300 6 u, 301-350 8 u, 351- 400 10 u, > 401 call your PCP Pickup at [facility] #[id number] Today at lunch Changed insulin regular (HumuLIN [...] Mouth Every day Hypertension Resume 03/08/2025 Unchanged [facility] Prescription (Glucose Kit) See instructions Hyperglycemia Glucose meter. Include autolet, matching test strips, lancets, & alcohol wipes, #100 or as allowed by insurance; DX: E11.9 Unchanged Misc Prescription (Pen Needle 31G x 6mm) See instructions Hyperglycemia Pen Needle 31G x 6mm Pharmacy Information [id number]: [address] [place], [place] [id number] [phone] Test Results CBC BMP WBC: 6.9 E9/L [...] CO2: 26 mmol/L (02/18 (more content not included)...[facility] HospitalInpatient Clinical Summaryon 63-45-6384Yayckferq Clinical SummaryInpatient Clinical Summary [address] [address] Clinical Summary Person Information: Name: NICOLE LORA Age: 65 Years : 1960 Sex: Male PCP: Mendy LYMAN, Mounika Lugo Marital Status: Phone: [phone] Race: White Ethnicity: Non- or Language: Singaporean Visit Id: Visit Reason: Hyperglycemia; Medical problem - minor; Leg pain-swelling; LEG PAIN Speciality: Acuity: Enc Type: Inpatient Med Service: Medical Arrival: 03/05/2025 19:53:39 Discharge: Dispo Type: Admit to ICCU Address: [address] [id number] Provider Notes: Diagnosis: 1:Leg muscle spasm; 4:CKD [...] up: With: Address: When: [place] [address] Business (1) Within 3 to 5 days Comments: Call for followup appointment Patient Education Information: Hyperglycemic Hyperosmolar [facility] CenterIn[facility] Patient Summaryon 02-86-7630Mjmapexli Patient SummaryInpatient Patient Summary [address] [address] Patient Discharge Instructions PERSON INFORMATION [...] With: Address: When: [place] [address] Business (1) Within 3 to 5 days [...] OCCURRED DURING YOUR HOSPITAL STAY New Medications [id number], [address] [facility] [place], [place] [id number], [phone] insulin glargine (Insulin Glargine Prefilled Pen 100 [...] Instructions: Hyperglycemic Hyperosmolar State (more content not included)...[facility] HospitalInterdisciplinary Note - Case Manageron 03-07-2025 Interdisciplinary Note - Case ManagerInterdisciplinary Note - Insurance Salesperson Patient is awake and alert in bed, previously rounded with Dr. Macario. Patient is from home independently, states with daughter 4 days per week who is disabled and has cancer. States trying to get motorized scooter approved by insurance and CRM contacted PCP office yesterday regarding this. Declines any HH or PM or further needs. Family will transport at [place]. Medicare rights reviewed and second copy provided. . PCP verified and insurance information reviewed and DME discussed. Contact information provided and white board updated.[facility] HospitalComment on above:Result Comment: Electronically Signed By: Darlyn HALL, Lolis\.samir\Date and Time Signed: 03/07/25 09:09 EDTPatient Education - Texton 53-67-1968Vdesqlq Education - TextPatient Education - Text [facility] HospitalBMPon 97-73-3850Lejgj gap [Moles/Vol]12 mmol/L [place]658 Sanders StreetComment on above:Performed By: #### [id number] #### [facility] [address] [place], [place] [address]NLI/Creat Ratio22 No NoelfZbgr86-67IuczkjSouthwest General Health Center Comment on above:Performed By: #### [id number] #### [facility] [address] [place], [place] [address]Wvmvblr [Mass/Vol]8.4 mg/dLLow8.9-11.1FCleveland Clinic Mercy HospitalComment on above:Performed By: #### [id number] #### [facility] [address] [place], [place] [address]Dupaowup [Moles/Vol]100 mmol/KXkj979-200NvdidfSouthwest General Health CenterComment on above:Result Comment: Delta check verifiedPerformed By: #### [id number] #### [facility] [address] [place], [place] [address]IY7 [Moles/Vol]26 mmol/KNkjbqr33-35OruykbSouthwest General Health Center Comment on above:Performed By: #### [id number] #### [facility] [address] [place], [place] [address]Idgxiusgov [Mass/Vol]1.6 mg/dLHigh0.5-1.3FCleveland Clinic Mercy HospitalComment on above:Result Comment: Delta check verifiedPerformed By: #### [id number] #### [facility] [address] [place], [place] [address]Pbksqiw [Mass/Vol]224 mg/zEMshg91-245CatgftSouthwest General Health CenterComment on above:Performed By: #### [id number] #### [facility] [address] [place], [place] [address]Ywhhcsytc [Moles/Vol]3.8 mmol/LNormal3.5-5.3FCleveland Clinic Mercy HospitalComment on above:Result Comment: Delta check verifiedPerformed By: #### [id number] #### [facility] [address] [place], [place] [address]Uyevyi [Moles/Vol]134 mmol/LNjy999-867JtvuovSouthwest General Health CenterComment on above:Performed By: #### [id number] #### [facility] [address] [place], [place] [address]Nner nitrogen [Mass/Vol]35 mg/dLHigh5-21Southwest General Health CenterComment on above:Performed By: #### [id number] #### [facility] [address] [place], [place] [address]Zerttbjuy Glucose POCon 01-72-1013Fskhpdc [Mass/Vol]172 mg/dL Cpdw04-70JqbvjjSouthwest General Health CenterComment on above:Result Comment: Notified RN/MDPerformed By: #### [id number] #### [facility] [address] [place], [place] [address]Xsfjxni [Mass/Vol]121 mg/jCJctr41-85YzocgdSouthwest General Health Center Comment on above:Result Comment: Notified RN/MDPerformed By: #### [id number] #### [facility] [address] [place], [place] [address]Gexgyia [Mass/Vol]186 mg/nXEpxd32-63WkxnrqSouthwest General Health Center Comment on above:Performed By: #### [id number] #### [facility] [address] [place], [place] [address]Mwozjjd [Mass/Vol]225 mg/sEWwgr89-93FkewooSouthwest General Health Center Comment on above:Performed By: #### [id number] #### [facility] [address] [place], [place] [address]Qkyeltt [Mass/Vol]128 mg/hNWuri76-46QqpkghSouthwest General Health Center Comment on above:Performed By: #### [id number] #### [facility] [address] [place], [place] [address]Kkotszu [Mass/Vol]168 mg/hTXbfo39-51KzirwaSouthwest General Health Center Comment on above:Result Comment: Cleaned MeterPerformed By: #### [id number] #### [facility] [address] [place], [place] [address]Jkypiem [Mass/Vol]163 mg/rPTixp29-12Znzoqj [facility] Comment on above:Result Comment: Cleaned MeterPerformed By: #### [id number] #### [facility] [address] [place], [place] [address]Jmyvkss [Mass/Vol]229 mg/vRDvxe75-24Lvfigu[address] Comment on above:Result Comment: Cleaned MeterPerformed By: #### [id number] #### [facility] [address] [place], [place] [address]Hasebgy [Mass/Vol]214 mg/eQSuyv56-45Rlijmu[address] Comment on above:Result Comment: Cleaned MeterPerformed By: #### [id number] #### [facility] [address] [place], [place] [address]Mcsnznf [Mass/Vol]241 mg/qQPtkx97-86Avlkqn[address] Comment on above:Result Comment: Cleaned MeterPerformed By: #### [id number] #### [facility] [address] [place], [place] [address]Gjebkfw [Mass/Vol]322 mg/kHPman39-82Djzgnj[address] Comment on above:Result Comment: Cleaned MeterPerformed By: #### [id number] #### [facility] [address] [place], [place] [address]Brrqdhr [Mass/Vol]384 mg/aHFmyr04-70Sjlxii[address] Comment on above:Result Comment: Cleaned MeterPerformed By: #### [id number] #### [facility] [address] [place], [place] [address]Jktsarh [Mass/Vol]440 mg/qZXtte54-40Nynxsb[address] Comment on above:Result Comment: Cleaned MeterPerformed By: #### [id number] #### [facility] [address] [place], [place] [address]SE Note-Physicianon 85-90-7656ZA Note-PhysicianED Note-Physician Basic Information Time Seen: Alejandro [...] and Complexity of Problems Differential Diagnosis: [] [facility] Data External documents reviewed: [] My [...] 03/05/25 21:01:00 EDT, ST (more content not included)...[facility] HospitalComment on above:Result Comment: Electronically Signed By: Alejandro Silva M.D.\.br\Date and Time Signed: 03/06/2500:11 EDTExtra Folsom 18-03-8989TP Tube CollectedYesInvalid Interpretation [facility] CampusComment on above:Performed By: #### [id number] #### [facility] [address] [place] [address]Kfnqhetqb 58-00-4150Pfwtcbp [Mass/Vol]551 mg/hGYdaidesn19-875 [facility] CenterComment on above:Result Comment: Critical Result Verified by Previous Result Critical Result S_GLU:551 Called to and read back by: DIGNA MARX at: 03/06/2025 00:04:06 by:[id number] By: #### [id number] #### [facility] [address] [place], [place] [address]Axmqqfypp Clinical Summaryon 85-67-0145Rwozcdbgi Clinical SummaryInpatient Clinical Summary [address] [address] Clinical Summary Person Information: Name: NICOLE LORA Age: 65 Years : 1960 Sex: Male PCP: Mendy LYMAN, Mounika Lugo Marital Status: Phone: [phone] Race: White Ethnicity: Non- or Language: Singaporean Visit Id: Visit Reason: Hyperglycemia; Medical problem - minor; Leg pain-swelling; LEG PAIN Speciality: Acuity: Enc Type: Inpatient Med Service: Medical Arrival: 03/05/2025 19:53:39 Discharge: Dispo Type: Admit to ICCU Address: [address] [id number] Provider Notes: Diagnosis: 1:Leg muscle spasm; 4:CKD [...] Physician: Referring Physician: Follow up: Patient Education Information:[facility] HospitalInpatient Patient Summaryon 49-43-8977Xjcwwwnha Patient SummaryInpatient Patient Summary [place] [address] Patient Discharge Instructions PERSON INFORMATION Name: NICOLE [...] to serve you. Thank you for choosing [facility] HospitalInterdisciplinary Note - Case Manageron 03-06-2025 Interdisciplinary Note - Case ManagerInterdisciplinary Note - Insurance Salesperson CRM to room ICU 7 Patient is awake, alert and oriented. Patient is from home alone. His Daughter [place] transport him at [place]. Per Patient he lives in the same apartment compex as one of his Daughters, he does assist her every few days because she has cancer. He is scheduled to be with her on 03/07 and would prefer to [employer] [facility] [employer] today or 03/07. Patient PCP, DME and [...] Dr Macario patient may move to the [facility]. Patient was provided CRM contact, white [...] with patient in regard to his electric scooterCleveland Clinic Lutheran HospitalComment on above: Result Comment: Electronically Signed By: Jodee Giang\.br\Date and Time Signed: 03/06/25 16:16 EDTInterdisciplinary Note - Case ManagerInterdisciplinary Note - Insurance Salesperson CRM to room ICU 7 Patient is awake, alert and oriented. Patient is from home alone. His Daughter [place] transport him at [place]. Per Patient he lives in the same [...] Dr Macario patient may move to the [facility]. Patient was provided CRM contact, white board updated. CRM following DC date TBD, DC plan home, declined needsAvita Health System Galion Hospital Comment on above:Result Comment: Electronically Signed By: Jodee Giang.br\Date and Time Signed: 03/06/25 10:21 EDTPatient Education - Texton 70-22-2759Ggrqbfo Education - TextPatient Education - TextNormalFisher Ramone Medical CenterXR Chest Single Viewon 38-19-3414HN Chest Single ViewExam Date/Time: 03/05/2025 21:18 EDT [...] Primo Robles MD Transcribed by: KAT Technologist: [facility]'s HospitaleGFRon 83-58-0459fSON25 mL/min/1.73 m2Low>=59South[facility] General Health CenterComment on above:Performed By: #### [id number] #### [facility] [address] [place], [place] [address]KEBdw 92-20-1574Mmltnic [Mass/Vol]1084 mg/lRXawfrxbm94-839 [facility] CenterComment on above:Result Comment: Critical Result Verified by Repeat Analysis Critical Result S_GLU:[id number] Called to and read back by: ARLETH GE at: 03/05/2025 21:05:22 by:[id number] By: #### [id number] #### [facility] [address] [place], [place] [address]Ztffbs [Moles/Vol]119 mmol/TSexujeyv045-989FiocylSouthwest General Health CenterComment on above:Result Comment: Critical Result Verified by Repeat Analysis Critical Result S_NA of 119 Called to and read back by: ARLETH GE at: 03/05/2025 21:05:22 by:[id number] By: #### [id number] #### [facility] [address] [place], [place] [address]Jejcx gap [Moles/Vol]13 mmol/LNormal6-16[facility] Health CenterComment on above:Performed By: #### [id number] #### [facility] [address] [place], [place] [address]VVV/Creat Ratio21 No RxhqzSqpd66-26FvvwgbSouthwest General Health Center Comment on above:Performed By: #### [id number] #### [facility] [address] [place], [place] [address]Axcnspu [Mass/Vol]8.4 mg/dLLow8.9-11.1FCleveland Clinic Mercy HospitalComment on above:Performed By: #### [id number] #### [facility] [address] [place], [place] [address]Bnenrtwt [Moles/Vol]86 mmol/EKbn190-286ArhbavSouthwest General Health CenterComment on above:Performed By: #### [id number] #### [facility] [address], [place] [address]UM3 [Moles/Vol]25 mmol/OQkvvku46-32WvczphSouthwest General Health Center Comment on above:Performed By: #### [id number] #### [facility] [address], [place] [address]Unnjvjcfyh [Mass/Vol]1.9 mg/dLHigh0.5-1.3FCleveland Clinic Mercy HospitalComment on above:Performed By: #### [id number] #### [facility] [address], [place] [address]Wmxjamzpa [Moles/Vol]4.6 mmol/LNormal3.5-5.3FCleveland Clinic Mercy HospitalComment on above:Performed By: #### [id number] #### [facility] [address], [place] [address]Xxcw nitrogen [Mass/Vol]40 mg/dLHigh5-21Southwest General Health CenterComment on above:Performed By: #### [id number] #### [facility] [address], [place] [address]SSPCsa 03-38-9142Qtxg HB Qnt0.45 mmol/LHigh0.02-0.27South[facility] General Health CenterComment on above:Performed By: #### [id number] #### [facility] [address], [place] [address]PYS w/ Auto Diffon 96-08-4913Jbbyykdo Absolute0.1 E9/LNormal 0.0-0.2FCleveland Clinic Mercy HospitalComment on above:Performed By: #### [id number] #### [facility] [address], [place] [address]Huzillgca/100 WBC (Bld)0.9 %Normal0.0-2.0Southwest General Health CenterComment on above:Performed By: #### [id number] #### [facility] [address] [place] [address]Kue Absolute0.2 E9/LNormal0.0-0.5FCleveland Clinic Mercy Hospital Comment on above:Performed By: #### [id number] #### [facility] [address], [place] [address]Amnrjsqfmon/100 WBC (Bld)2.4 %Normal0.0-8.0South[facility] General Health CenterComment on above:Performed By: #### [id number] #### [facility] [address], [place] [address]Obvsbnirjxx distribution width (RBC) [Ratio]12.9 %Normal 10.9-14.2FCleveland Clinic Mercy HospitalComment on above:Performed By: #### [id number] #### [facility] [address], [place] [address]Swtmwnawta (Bld) [Volume fraction]44.1 %Btwiwr60.7-49.0South[facility] General Health CenterComment on above:Performed By: #### [id number] #### [facility] [address], [place] [address]Xecqacefhs (Bld) [Mass/Vol]14.7 g/aBEcfdyu02.5-17.5FCleveland Clinic Mercy HospitalComment on above:Performed By: #### [id number] #### [facility] [address] [place] [address]Pkuym Absolute1.2 E9/LNormal1.0-4.0[facility] Comment on above:Performed By: #### [id number] #### [facility] [address] [place] [address]Tzlykzztine/100 WBC (Bld)17.9 %Cstcpi87.0-50.0South[facility] General Health CenterComment on above:Performed By: #### [id number] #### [facility] [address] [place] [address]SWB (RBC) [Entitic mass]31.2 ipEupazm21.0-34.0South[facility] General Health CenterComment on above:Performed By: #### [id number] #### [facility] [address] [place] [address]NPTH (RBC) [Mass/Vol]33.2 g/kQSmpsrx80.4-36.0South[facility] General Health CenterComment on above:Performed By: #### [id number] #### [facility] [address] [place] [address]RVJ (RBC) [Entitic vol]93.8 dOMucuqi89.0-100.0South[facility] General Health CenterComment on above:Performed By: #### [id number] #### [facility] [address] [place] [address]Vhqg Absolute0.4 E9/LNormal0.2-1.0[facility] Comment on above:Performed By: #### [id number] #### [facility] [address] [place] [address]Ffprjrxbk/100 WBC (Bld)6.5 %Normal4.0-14.0[facility] General Health CenterComment on above:Performed By: #### [id number] #### [facility] [address] [place] [address]Fxlgdn Absolute5.0 E9/LNormal2.0-7.5FC[facility] Comment on above:Performed By: #### [id number] #### [facility] [address] [place] [address]Efsfyr Auto72.3 %Hevpla46.0-75.0[facility] Comment on above:Performed By: #### [id number] #### [facility] [address], [place] [address]Uvudfmse460.0 E9/VIxxekm761.0-500.0[facility] Comment on above:Performed By: #### [id number] #### [facility] [address] [place] [address]Xkrmaidk mean volume (Bld) [Entitic vol]8.1 fLNormal6.4-10.8 [facility] General Health CenterComment on above:Performed By: #### [id number] #### [facility] [address] [place] [address]WSZ0.7 E12/LNormal4.3-5.9South[facility] General Health CenterComment on above:Performed By: #### [id number] #### [facility] [address] [place] [address]ZMK6.9 E9/LNormal4.0-11.0[facility] General Health CenterComment on above:Performed By: #### [id number] #### [facility] [address] [place] [address]Gphsythqr Glucose POCon 34-51-3402Dqbofep Cap>757Soqvjzmb01-40 [facility] Health CenterComment on above:Result Comment: Cleaned Meter Performed By: #### [id number] #### [facility] [address] [place] [address]Wmhwlme Cap>855Ftcwnuhl67-83UqwqldSouthwest General Health CenterComment on above:Result Comment: Cleaned MeterPerformed By: #### [id number] #### [facility] [address] [place] [address] [place] [address]Ekpozws Cap>691Vujlcwwy55-55WxkzkaSouthwest General Health CenterComment on above:Performed By: #### [id number] #### [facility] [address], [place] [address]RQ Clinical Summaryon [id number] Clinical SummaryED Clinical Summary [address] [address] ED Clinical Summary Person Information Name: NICOLE LORA/[facility] Age: 65 Years : 1960 Sex: Male Language: Singaporean PCP: Mounika Brooke MD Marital Status: Phone: [phone] Visit Id: Visit Reason: Hyperglycemia; Medical problem [...] 03/05/2025 21:34:31 03/05/2025 21:34:31 03/05/2025 21:34:31 ADDRESS: [address] [place] [phone] [facility] DOC NOTES: MEDICAL INFORMATION: Prescriptions Given: [...] DIAGNOSIS:NormalFisher Ramone Medical CenterED Patient Education Noteon 52-14-9601DP Patient Education NoteED Patient Education NoteNormalFisher Ramone Medical CenterED Patient Summaryon [id number] Patient SummaryED Patient Summary [place] [id number] Patient Discharge Instructions Person Information Name: NICOLE LORA Age: 65 Years Arrival Date: 03/05/2025 19:53:39 Discharge Diagnosis: Primary Care Physician: Mounika Brooke MD Provider Information Primary Provider: Alejandro Silva M.D. Advanced Nba Player:None The exam and treatment you received in the Emergency Department were for an urgent problem and are not intended as complete care. It is important that you follow up with a doctor, nurse practitioner,or physician???s environmental assistant for ongoing care. If your symptoms become worse or you do not improve asexpected and you are unable to reach your usual health care provider, you should return to the Emergency Department. We are available 24 hours a day. NIOCLE LORA has been given the following list [...] opioids can be used to help relieve sejagisx-ln-dfwnce pain and are often prescribed following a [...] be struggling with addiction, tell your health palliative care nurse practitioner and askfor guidance or call [facility]???S National Helpline at 3-355-323-YYRF. q Source: [place] Department of Health and Human Services/Center for Disease Control & Prevention [facility] [place] content [place])...NormalSouthwest General Health CenterExtra Blueon 84-56-5625Kocf Collected PlasmaYesInvalid Interpretation CodeSouthwest General Health CenterComment on above:Performed By: #### [id number] #### [facility] [address], [place] [address]Frbzsayrs 19-82-3092Xuqhesb [Mass/Vol]726 mg/xHEzyvidzk43-184 [facility] Health CenterComment on above:Result Comment: Critical Result Verified by Repeat Analysis Critical Result S_[id number] Called to and read back by: BINA GONZALEZ at: 03/05/2025 23:09:06 by:[id number] By: #### [id number] #### [facility] [address], [place] [address]Xth Func Panelon 91-52-2000Wubuszp [Mass/Vol]3.3 g/dLNormal 3.3-5.0[facility] General Health CenterComment on above:Performed By: #### [id number] #### [facility] [address], [place] [address]Gmddycy/Globulin [Mass ratio]1.2 {ratio}Normal1.1-2.2FCleveland Clinic Mercy HospitalComment on above:Performed By: #### [id number] #### [facility] [address], [place] [address]Oic Wvvt855 Int._Unit/GQpkx19-53MslkpnSouthwest General Health Center Comment on above:Performed By: #### [id number] #### [facility] [address], [place] [address]KBX35 Int._Unit/LNormal6-46South[facility] General Health CenterComment on above:Performed By: #### [id number] #### [facility] [address] [place] [address]EMH10 Int._Unit/LNormal5-43South[facility] General Health CenterComment on above:Performed By: #### [id number] #### [facility] [address] [place] [address]Ogcr Direct0.1 mg/dLNormal0.0-0.4FC[facility] Comment on above:Performed By: #### [id number] #### [facility] [address] [place] [address]Xvry Indirect0.6 mg/dLNormal0.1-0.9[facility] Comment on above:Performed By: #### [id number] #### [facility] [address] [place] [address]Wddm Total0.7 mg/dLNormal0.0-1.1[facility] Comment on above:Performed By: #### [id number] #### [facility] [address] [place] [address]Qxywuoyb (S) [Mass/Vol]2.8 g/dLNormal1.4-4.0[facility] General Health CenterComment on above:Performed By: #### [id number] #### [facility] [address] [place] [address]Mefsuhz [Mass/Vol]6.1 g/dLNormal6.0-7.8South[facility] General Health CenterComment on above:Performed By: #### [id number] #### [facility] [address] [place] [address]Gngrgauqmjt 75-19-6194Uywnsykow [Mass/Vol]2.0 mg/dLNormal 1.3-2.4FCleveland Clinic Mercy HospitalComment on above:Performed By: #### [id number] #### [facility] [address] [place] [address]Mns-Mxwpsqe Noteon 01-90-4512Izn-Arrival NotePre-Arrival Note Pre-Arrival Summary Name: , Current Date: 03/05/2025 19:54:07 EDT Gender: Male Date of : Age: 65 Pre-Arrival Type: EMS ETA: 03/05/2025 20:14:00 EDT Primary Care Physician: Presenting Problem: leg pain Pre-Arrival User: Liberty Cope RN Referring Source: Location: Completion Date/Time: 03/05/2025 19:44:00 [facility] Emergency Department Pre-Hospital Report Form Vital Signs: Pre-Hospital Report: Treatment in Route: Response to Treatment: Misc. Issues:NormalSouthwest General Health CenterTroponinon 96-71-5571Kcpwjdgx HS 10.10 pg/mLLow15.90-38.40South[facility] General Health CenterComment on above:Result Comment: The 95% CI (Confidence Interval) PPV (Positive Predictive Value) for myocardial infarction in females is 38 pg/mL, in males 51 pg/mL. The results should be used in conjunction with clinical conditions of myocardial infarction. (Access High Sensitivity Troponin I Instructions For Use, [place], March 2018)Performed By: #### [id number] #### [facility] [address] [place] [id number] with Cult Rflxon 09-27-0301Qazuw (U)ColorlessAbnormalYellow [facility] General Health CenterComment on above:Result Comment: Microscopic readings are only performed on those samples that meet specific criteria set forth by [facility].Performed By: #### [id number] #### [facility] [address], [place] [address]Tgvggwo Ql (U)NegativeNormalNegativeSouthwest General Health Center Comment on above:Performed By: #### [id number] #### [facility] [address], [place] [address]KH BloodNegativeNormalNegOhioHealth Marion General Hospital Comment on above:Performed By: #### [id number] #### [facility] [address], [place] [address]LM ClarityClearNormalClearSouthwest General Health CenterComment on above:Performed By: #### [id number] #### [facility] [address], [place] [address]KM Glucose4+ mg/dLAbnormalNegOhioHealth Marion General Hospital Comment on above:Performed By: #### [id number] #### [facility] [address], [place] [address]BC Leuk EstNegativeNormalNegOhioHealth Marion General Hospital Comment on above:Performed By: #### [id number] #### [facility] [address], [place] [address]PB MucousNegativeNormalNegOhioHealth Marion General Hospital Comment on above:Performed By: #### [id number] #### [facility] [address], [place] [address]FS NitriteNegativeNormalNegOhioHealth Marion General Hospital Comment on above:Performed By: #### [id number] #### [facility] [address], [place] [address]RD pH6.0Invalid Interpretation Code5.0-9.0South[facility] General Health CenterComment on above:Performed By: #### [id number] #### [facility] [address], [place] [address]XK Protein1+ mg/dLAbnormalNegOhioHealth Marion General Hospital Comment on above:Performed By: #### [id number] #### [facility] [address], [place] [address]RO QWB4-1Rpqhgc8-0Brclnq Mercy Medical CenterComment on above: Performed By: #### [id number] #### [facility] [address], [place] [address]LE Spec Grav1.024Invalid Interpretation Code1.005-1.030South[facility] General Health CenterComment on above:Performed By: #### [id number] #### [facility] [address], [place] [address]ZX UrobilinogenNegativeNormalNegativeSouthwest General Health CenterComment on above:Performed By: #### [id number] #### [facility] [address], [place] [address]CP ZVX7-4Grbvcc6-8Bvnwno Mercy Medical CenterComment on above: Performed By: #### [id number] #### [facility] [address], [place] [address]Cxmekdduydfn (U) [Mass/Vol]NegativeNormalNegativeSouthwest General Health CenterComment on above:Performed By: #### [id number] #### [facility] [address], [place] [address]BD Spec DescClean CatchNormalSouthwest General Health CenterComment on above:Performed By: #### [id number] #### [facility] [address], [place] [address]jBKSco 55-36-2002kUGG03 mL/min/1.73 m2Low>=59South[facility] General Health CenterComment on above:Performed By: #### [id number] #### [facility] [address], [place] [address]Ymfmy Metabolic Panelon 43-03-0929Bqdwt gap [Moles/Vol]13.7 mmol/LNormal6.0-15.0The [facility] Carolina Physician GroupComment on above:Performed By: #### BMP, MG, BHOB, CBC #### [facility] [address] [place] [address] USACalcium [Mass/Vol]8.9 mg/dLNormal8.6-10.3The [facility] Physician GroupComment on above:Performed By: #### BMP, MG, BHOB, CBC #### [facility] [address] [place] [address] USAChloride [Moles/Vol]98 mmol/JLpbtgd50-030Cvv [facility] Physician GroupComment on above:Performed By: #### BMP, MG, BHOB, CBC #### [facility] [address] [place] [address] USACO2 [Moles/Vol]23.1 mmol/TXaqtta99.0-31.0The [facility] Physician GroupComment on above:Performed By: #### BMP, MG, BHOB, CBC #### [facility] [address] [place] [address] USACreatinine [Mass/Vol]1.72 mg/dLHigh0.70-1.30The [facility] Physician GroupComment on above:Performed By: #### BMP, MG, BHOB, CBC #### [place] [address] USACreatinine Clr Calc Gxsqqlgk85.60NoCone Health [facility] Physician [facility] Health NatchezComment on above:Performed By: #### BMP, MG, BHOB, CBC #### [place] [address] USAEstimated GFR43.569 mL/MinNoCone Health Annie [facility] Hospital Physician [facility] Health NatchezComment on above:Performed By: #### BMP, MG, BHOB, CBC #### [place] [address] USAGlucose [Mass/Vol]739 mg/dLOff scale oqae74-965Use [facility] Physician GroupComment on above:Result Comment: Critical Result Called to and read back by: SAMPSON WESTON at: 12/22/2024 18:30:49 by:[id number] Random Glucose Reference Range is dependent on time and content of last meal. Glucose of more than 200 mg/dL in a nonstressed, ambulatory subject supports the diagnosis of Diabetes Mellitus. ADA recommended reference rangePerformed By: #### BMP, MG, BHOB, CBC #### [place] [address] USAPotassium [Moles/Vol]4.8 mmol/LNormal3.5-5.1The [facility] Physician GroupComment on above:Performed By: #### BMP, MG, BHOB, CBC #### [facility] [address] [place] [address] USASodium [Moles/Vol]130 mmol/RBsm032-363Lhg [facility] Physician GroupComment on above:Performed By: #### BMP, MG, BHOB, CBC #### [facility] [address] [place] [address] USAUrea nitrogen [Mass/Vol]38 mg/dLHigh7-25The [facility] Physician GroupComment on above:Performed By: #### BMP, MG, BHOB, CBC #### [facility] [address] [place] [address] USABeta Hydroxybuterateon 07-16-8507Sksy Hydroxybuterate1.12 mmol/LHigh0.02-0.27The [facility] Physician GroupComment on above:Result Comment: PERFORMED BY: [place] [address] PATHOLOGIST HYDROMETER TESTER MARIA LUISA SHAH M.D.Performed By: #### BMP, MG, BHOB, CBC #### [place] [address] USAComplete Blood Count Auto Diffon 48-35-1112Zxifijurz (Bld) [#/Vol]0.2 10*3/uLNormal0.0-0.2The [facility] Physician GroupComment on above: Result Comment: PERFORMED BY: [place] [address] PATHOLOGIST HYDROMETER TESTER MARIA LUISA SHAH M.D.Performed By: #### BMP, MG, BHOB, CBC #### [place] [address] USABasophils/100 WBC (Bld)2.6 %Normal.The [facility] Physician GroupComment on above:Performed By: #### BMP, MG, BHOB, CBC #### [facility] [address] [place] [address] USAEosinophils (Bld) [#/Vol]0.1 10*3/uLNormal0.0-0.45The [facility] Physician GroupComment on above:Performed By: #### BMP, MG, BHOB, CBC #### [place] [address] USAEosinophils/100 WBC (Bld)2.0 %Normal.The [facility] Physician GroupComment on above:Performed By: #### BMP, MG, BHOB, CBC #### [place] [address] USAErythrocyte distribution width (RBC) [Ratio]13.9 %Normal 12.0-14.8The [facility] Physician GroupComment on above:Performed By: #### BMP, MG, BHOB, CBC #### [place] [address] USAHematocrit (Bld) [Volume fraction]45.4 %Wxrwja79.8-50.0The [facility] Physician GroupComment on above:Performed By: #### BMP, MG, BHOB, CBC #### [place] [address] USAHemoglobin (Bld) [Mass/Vol]15.2 g/gZSbskth03.0-17.0The [facility] Physician GroupComment on above:Performed By: #### BMP, MG, BHOB, CBC #### [place] [address] USALymphocytes (Bld) [#/Vol]1.5 10*3/uLNormal1.00-4.8The [facility] Physician GroupComment on above:Performed By: #### BMP, MG, BHOB, CBC #### [place] [address] USALymphocytes/100 WBC (Bld)23.7 %Normal.The [facility] Physician GroupComment on above:Performed By: #### BMP, MG, BHOB, CBC #### [place] [address] USAMCH (RBC) [Entitic mass]31.5 azFanvnt63.5-35.2The [facility] Physician GroupComment on above:Performed By: #### BMP, MG, BHOB, CBC #### [facility] [address] [place] [address] USAMCV (RBC) [Entitic vol]93.9 zECflqxe79.5-101The [facility] Physician GroupComment on above:Performed By: #### BMP, MG, BHOB, CBC #### [facility] [address] [place] [address] USAMean Corpuscular HGB Conc33.5 g/jVVwwukk63.5-35.6The [facility] Physician GroupComment on above:Performed By: #### BMP, MG, BHOB, CBC #### [facility] [address] [place] [address] USAMonocytes (Bld) [#/Vol]0.6 10*3/uLNormal0.0-0.8The [facility] Physician GroupComment on above:Performed By: #### BMP, MG, BHOB, CBC #### [place] [address] USAMonocytes/100 WBC (Bld)17.04 %Normal0.00-20.00The [facility] Physician GroupComment on above:Performed By: #### BMP, MG, BHOB, CBC #### [place] [address] USAMonocytes/100 WBC (Bld)9.3 %Normal.The [facility] Physician GroupComment on above:Performed By: #### BMP, MG, BHOB, CBC #### [facility] [address] [place] [address] USANeutrophils (Bld) [#/Vol]3.9 10*3/uLNormal1.8-7.7The [facility] Physician GroupComment on above:Performed By: #### BMP, MG, BHOB, CBC #### [facility] [address] [place] [address] USANeutrophils/100 WBC (Bld)62.4 %Normal.The [facility] Physician GroupComment on above:Performed By: #### BMP, MG, BHOB, CBC #### [place] [id number] USANRBC%0.1 /100{WBC}Normal0-0.5The [facility] Comment on above:Performed By: #### BMP, MG, BHOB, CBC #### [place] [address] USAPlatelet mean volume (Bld) [Entitic vol]8.2 fLNormal 6.6-10.1The [facility] Physician GroupComment on above:Performed By: #### BMP, MG, BHOB, CBC #### [place] [address] USAPlatelets (Bld) [#/Vol]206 10*3/xAQnaroh111-267Hce [facility] Physician GroupComment on above:Performed By: #### BMP, MG, BHOB, CBC #### [place] [address] USARBC (Bld) [#/Vol]4.83 10*6/uLNormal3.90-5.60The [facility] Physician GroupComment on above:Performed By: #### BMP, MG, BHOB, CBC #### [place] [address] USAWBC (Bld) [#/Vol]6.2 10*3/uLNormal4.1-10.5The [facility] Physician GroupComment on above:Performed By: #### BMP, MG, BHOB, CBC #### [place] [address] USAGlucose Poct Glucometerson 11-01-8503Aepxqsr [Mass/Vol]394 mg/dLNormalThe [facility] Physician GroupComment on above:Result Comment: Random Glucose Reference Range is dependent on time and content of last meal. Glucose of more than 200 mg/dL in a nonstressed, ambulatory subject supports the diagnosis of Diabetes Mellitus. PERFORMED BY: [place] [address] PATHOLOGIST HYDROMETER TESTER MARIA LUISA SHAH M.D.Performed By: #### GLULS #### Point of Care testing ,Nrfxsyw0WagljsScr [facility] Physician GroupComment on above:Result Comment: Glu2: WILL NOTIFY DR/RN PERFORMED BY: [place] [address] PATHOLOGIST HYDROMETER TESTER MARIA LUISA SHAH M.D.Performed By: #### GLULS #### Point of Care testing ,Glucose [Mass/Vol]514 mg/dLOff scale highThe [facility] Of [facility] Physician GroupComment on above:Result Comment: Random Glucose Reference Range is dependent on time and content of last meal. Glucose of more than 200 mg/dL in a nonstressed, ambulatory subject supports the diagnosis of Diabetes Mellitus.Performed By: #### GLULS #### Point of Care testing ,Magnesiumon 33-96-7698Dhcswemku [Mass/Vol]2.0 mg/dLNormal1.9-2.7The Lifecare [facility] Physician GroupComment on above:Performed By: #### BMP, MG, BHOB, CBC #### [place] [address] USAVenous Blood Gason 29-51-8740FE2 [Moles/Vol]24.3 mmol/L Mwbcvz69.0-29.0[facility] NatchezComment on above:Performed By: #### VBG #### Point of Care testing ,HCO3 (Bld) [Moles/Vol]23.1 mmol/XDzyndt13.0-29.0[facility] Comment on above:Performed By: #### VBG #### Point of Care testing ,Respiratory CriticalNormAdventHealth North Pinellas Physician [facility] NatchezComment on above:Result Comment: Critical Value called on: 12/22/2024 at 17:51 PERFORMED BY: [place] [address] PATHOLOGIST HYDROMETER TESTER MARIA LUISA SHAH M.D.Performed By: #### VBG #### Point of Care testing ,VBG Base Excess-1.8 mmol/LNormal-3.0-3.0[facility] Physician GroupComment on above:Performed By: #### VBG #### Point of Care testing ,VBG Draw SiteVenousNormalThe [facility] Physician GroupComment on above: Performed By: #### VBG #### Point of Care testing ,VBG Frac Inspired O221 %NormalThe [facility]ician [facility] NatchezComment on above: Performed By: #### VBG #### Point of Care testing ,VBG O2 Content6.8 mmol/LNormal6.6-9.7[facility] Physician GroupComment on above:Performed By: #### VBG #### Point of Care testing ,VBG Oxygen Fiywivgmmw08.3 %Low73.0-76.0[facility]chezComment on above:Performed By: #### VBG #### Point of Care testing ,VBG PVS696.8 mm[Hg]Ehnvod92.0-50.0[facility] NatchezComment on above:Performed By: #### VBG #### Point of Care testing ,VBG PH Venous PH7.27Spidxv0.32-7.43[facility] NatchezComment on above:Performed By: #### VBG #### Point of Care testing ,VBG PO232.0 mm[Hg]Low35.0-45.0[facility] NatchezComment on above: Performed By: #### VBG #### Point of Care testing ,CBC w/ Auto Diffon 60-74-7559Iiosbrdbh/100 WBC (Bld)0.9 %Normal0.0-2.0[facility] CenterComment on above:Performed By: #### [id number] #### [facility] [address], [place] [address]Eaxzflktq/Leukocytes Auto (Bld) [Pure # fraction]0.1 E9/LNormal 0.0-0.2FCleveland Clinic Mercy HospitalComment on above:Performed By: #### [id number] #### [facility] [address] [place] [address]Fvdlexlgntj (Bld) [#/Vol]0.3 E9/LNormal0.0-0.5FCleveland Clinic Mercy HospitalComment on above:Performed By: #### [id number] #### [facility] [address], [place] [address]Imlavrefkko/100 WBC (Bld)4.2 %Normal0.0-8.0[facility] Health CenterComment on above:Performed By: #### [id number] #### [facility] [address], [place] [address]Ryebrnczfct distribution width (RBC) [Ratio]14.0 %Normal 10.9-14.2FCleveland Clinic Mercy HospitalComment on above:Performed By: #### [id number] #### [facility] [address] [place] [address]Nhpjuywnqn (Bld) [Volume fraction]40.7 %Edylfd70.7-49.0[facility] Health CenterComment on above:Performed By: #### [id number] #### [facility] [address] [place] [address]Otkdoiphrd (Bld) [Mass/Vol]14.3 g/rMTaxsoi07.5-17.5FCleveland Clinic Mercy HospitalComment on above:Performed By: #### [id number] #### [facility] [address] [place] [address]Nhbrxoedfbi (Bld) [#/Vol]1.9 E9/LNormal1.0-4.0[facility] Health CenterComment on above:Performed By: #### [id number] #### [facility] [address], [place] [address]Qchfzjhctfl/100 WBC (Bld)26.6 %Bcvtvu70.0-50.0[facility] Health CenterComment on above:Performed By: #### [id number] #### [facility] [address], [place] [address]ZKH (RBC) [Entitic mass]31.3 njYefdgt90.0-34.0[facility] CenterComment on above:Performed By: #### [id number] #### [facility] [address] [place] [address]ICUF (RBC) [Mass/Vol]35.1 g/xQRwablx21.4-36.0[facility] CenterComment on above:Performed By: #### [id number] #### [facility] [address] [place] [address]JGW (RBC) [Entitic vol]89.2 hCVzqaos73.0-100.0[facility] Health CenterComment on above:Performed By: #### [id number] #### [facility] [address], [place] [address]Ceywscxwi (Bld) [#/Vol]0.5 E9/LNormal0.2-1.0[facility] Health CenterComment on above:Performed By: #### [id number] #### [facility] [address] [place] [address]Bnjkxgdtnjf (Bld) [#/Vol]4.4 E9/LNormal2.0-7.5FCleveland Clinic Mercy HospitalComment on above:Performed By: #### [id number] #### [facility] [address] [place] [address]Certutswnpr/100 WBC (Bld)61.3 %Jywyem46.0-75.0[facility] Health CenterComment on above:Performed By: #### [id number] #### [facility] [address] [place] [address]Ulqabozh mean volume (Bld) [Entitic vol]8.2 fLNormal6.4-10.8 [facility] CenterComment on above:Performed By: #### [id number] #### [facility] [address], [place] [address]Iskuaipei (Bld) [#/Vol]205.0 E9/FApwqqa895.0-500.0[facility] Health CenterComment on above:Performed By: #### [id number] #### [facility] [address] [place] [address]DOY (Bld) [#/Vol]4.6 E12/LNormal4.3-5.9[facility] Health CenterComment on above:Performed By: #### [id number] #### [facility] [address], [place] [address]OBD corrected for nucl RBC Auto (Bld) [#/Vol]7.1 E9/LNormal 4.0-11.0[facility] Health CenterComment on above:Performed By: #### [id number] #### [facility] [address], [place] [address]KJVHMVDYQJemnepl By: Lab Barbier on 08-97-6480Fkctdfg [Mass/Vol]330 mg/mIKzec58 - 99 mg/dLINTEGRIS MIAMI HOSPITAL – [place] POC SubsectionComment on above:Result Comment: Cleaned MeterPOC UsernamePROY, MADISONInvalid Interpretation CodeFTMC POC SubsectionSodium [Moles/Vol]035638549413 mmol/LInvalid Interpretation Code [facility] POC SubsectionSodium [Moles/Vol]173684292 mmol/LInvalid Interpretation Code [facility] POC SubsectionGlucose [Mass/Vol]483 mg/dLInvalid Interpretation Code55 - 99 mg/dLMC POC SubsectionComment on above:Result Comment: Cleaned MeterPOC UsernamePROY, MADISONInvalid Interpretation CodeFTMC POC SubsectionSodium [Moles/Vol]140823298 mmol/LInvalid Interpretation CodeFTMC POC SubsectionSodium [Moles/Vol]284366393165 mmol/LInvalid Interpretation CodeFTMC POC Subsection Glucose [Mass/Vol]361 mg/jANuqs65 - 99 mg/dLFTMC POC SubsectionComment on above: Result Comment: Cleaned MeterPOC UsernamePROY, MADISONInvalid Interpretation CodeFTMC POC SubsectionSodium [Moles/Vol]264651938 mmol/LInvalid Interpretation CodeFTMC POC SubsectionSodium [Moles/Vol]742230516721 mmol/LInvalid Interpretation CodeFTMC POC SubsectionCHEMISTRYOrdered By: SYSTEM SYSTEM on 56-61-6028Nrlpygy [Mass/Vol]2.9 g/dLLow3.3 - 5.0 gm/dLRemisol Chem Albumin/Globulin [Mass ratio]1.1 {ratio}Normal1.1 - 2.2Remisol ChemALP [Catalytic activity/Vol]92 [iU]/jYwniqk73 - 98 Int._Unit/LRemisol ChemALT No additional P-5'-P [Catalytic activity/Vol]16 [iU]/dNormal6 - 46 Int._Unit/L Remisol ChemAnion gap [Moles/Vol]11 mmol/LNormal6 - 16 mEq/LRemisol ChemAST [Catalytic activity/Vol]16 [iU]/dNormal5 - 43 Int._Unit/LRemisol ChemBilirubin [Mass/Vol]0.6 mg/dLNormal0.0 - 1.1 mg/dLRemisol ChemCalcium [Mass/Vol]8.1 mg/dL Low8.9 - 11.1 mg/dLRemisol ChemChloride [Moles/Vol]102 mmol/CAdjcsx365 - 111 mmol/LRemisol ChemCO2 [Moles/Vol]25 mmol/XJyiwmv78 - 31 mmol/LRemisol Chem Creatinine [Mass/Vol]1.7 mg/dLHigh0.5 - 1.3 mg/dLRemisol KibzwLXG67 mL/min/1.73 m2Low>=59mL/min/1.73 e1Vdpukgu ChemGlobulin (S) [Mass/Vol]2.7 g/dLNormal1.4 - 4.0 gm/dLRemisol ChemGlucose [Mass/Vol]307 mg/sJNcvy33 - 199 mg/dLRemisol Chem Potassium [Moles/Vol]4.0 mmol/LNormal3.5 - 5.3 mmol/LRemisol ChemProtein [Mass/Vol]5.6 g/dLLow6.0 - 7.8 gm/dLRemisol ChemSodium [Moles/Vol]134 mmol/LLow 135 - 145 mmol/LRemisol ChemUrea nitrogen [Mass/Vol]46 mg/dLHigh5 - 21 mg/dL Remisol ChemUrea nitrogen/Creatinine [Mass ratio]27 mg/zdPpck45 - 20Remisol Chem CMPon 13-90-7581Utnnavi [Mass/Vol]2.9 g/dLLow3.3-5.0[facility] Comment on above:Performed By: #### [id number] #### [facility] [address], [place] [address]Imoipje/Globulin (S) [Mass conc ratio]1.6Vvbdyq6.1-2.2FC[facility] Clinic Mercy HospitalComment on above:Performed By: #### [id number] #### [facility] [address], [place] [address]FGH [Catalytic activity/Vol]92 Int._Unit/SJsekcz65-70FjwfsbSouthwest General Health CenterComment on above:Performed By: #### [id number] #### [facility] [address], [place] [address]JZE No additional P-5'-P [Catalytic activity/Vol]16 Int._Unit/L Normal6-46South[facility] General Health CenterComment on above:Performed By: #### [id number] #### [facility] [address], [place] [address]Fjxed gap [Moles/Vol]11 mmol/LNormal6-16[facility] Health CenterComment on above:Performed By: #### [id number] #### [facility] [address], [place] [address]FNK [Catalytic activity/Vol]16 Int._Unit/LNormal5-43[facility] Health CenterComment on above:Performed By: #### [id number] #### [facility] [address], [place] [address]Dwdwtufmq [Mass/Vol]0.6 mg/dLNormal0.0-1.1FC[facility] Clinic Mercy HospitalComment on above:Performed By: #### [id number] #### [facility] [address], [place] [address]Lqqsgit [Mass/Vol]8.1 mg/dLLow8.9-11.1FC[facility] Clinic Mercy HospitalComment on above:Performed By: #### [id number] #### [facility] [address], [place] [address]Veoxwxmw [Moles/Vol]102 mmol/DVxqwtk803-708FfhbycSouthwest General Health CenterComment on above:Performed By: #### [id number] #### [facility] [address], [place] [address]UI0 [Moles/Vol]25 mmol/IIcbizt95-69DgyzfaSouthwest General Health Center Comment on above:Performed By: #### [id number] #### [facility] [address], [place] [address]Kpqrqzpdmn [Mass/Vol]1.7 mg/dLHigh0.5-1.3FC[facility] Clinic Mercy HospitalComment on above:Performed By: #### [id number] #### [facility] [address], [place] [address]Niztnueb (S) [Mass/Vol]2.7 g/dLNormal1.4-4.0[facility] Health CenterComment on above:Performed By: #### [id number] #### [facility] [address], [place] [address]Dwfmrof [Mass/Vol]307 mg/aYOrtc62-075BfbaruSouthwest General Health CenterComment on above:Performed By: #### [id number] #### [facility] [address], [place] [address]Uuvjgcury [Moles/Vol]4.0 mmol/LNormal3.5-5.3FC[facility] Clinic Mercy HospitalComment on above:Performed By: #### [id number] #### [facility] [address], [place] [address]Ewotldm [Mass/Vol]5.6 g/dLLow6.0-7.8[facility] Comment on above:Performed By: #### [id number] #### [facility] [address], [place] [address]Nhtuuf [Moles/Vol]134 mmol/YGms154-657RxrkzmSouthwest General Health CenterComment on above:Performed By: #### [id number] #### [facility] [address], [place] [address]Aovp nitrogen [Mass/Vol]46 mg/dLHigh5-21[facility] Health CenterComment on above:Performed By: #### [id number] #### [facility] [address], [place] [address]Frot nitrogen/Creatinine [Mass ratio]27 No YtekeCkwk09-40PscmhxSouthwest General Health CenterComment on above:Performed By: #### [id number] #### [facility] [address], [place] [address]Jwodermmn Glucose POCon 61-92-3939Bshkpui [Mass/Vol]330 mg/dL Ogha73-14YafytxSouthwest General Health CenterComment on above:Result Comment: Cleaned MeterPerformed By: #### [id number] #### [facility] [address], [place] [address]Kcbzwca [Mass/Vol]483 mg/bGFsszxluo35-57YiyehzSouthwest General Health CenterComment on above:Result Comment: Cleaned MeterPerformed By: #### [id number] #### [facility] [address], [place] [address]Jzgglnt [Mass/Vol]361 mg/fDUgzs32-17SubtrqSouthwest General Health Center Comment on above:Result Comment: Cleaned MeterPerformed By: #### [id number] #### [facility] [address], [place] [address]Saedqrw [Mass/Vol]274 mg/qYZceo09-12UoipzbSouthwest General Health Center Comment on above:Result Comment: Notified RN/MDPerformed By: #### [id number] #### [facility] [address], [place] [address]Rksdbnp [Mass/Vol]246 mg/iNKbrp77-88FyiavqSouthwest General Health Center Comment on above:Result Comment: Notified RN/MDPerformed By: #### [id number] #### [facility] [address], [place] [address]Icdpnqh [Mass/Vol]95 mg/iXQnemwe21-44QytwcxSouthwest General Health CenterComment on above:Result Comment: Notified RN/MDPerformed By: #### [id number] #### [facility] [address] [facility], [place] [address]Rglfffw [Mass/Vol]91 mg/bWRvcwku70-31Qpxuuh Mercy Medical CenterComment on above:Performed By: #### [id number] #### [facility] [address] [place], [place] [address]IT Note-Physicianon 57-69-2848VE Note-PhysicianED Note-Physician Basic Information Time Seen: Paddy [...] 0, Pharmacy: [facility] #[id number], 183, cm, 06/23/24 13:45:00 EST, Height/Length Dosing, [...] 1000 mL, IV Dispos (more content not included)...[facility] HospitalComment on above:Result Comment: Electronically Signed By: [...] day(s), # 9 tab(s), Refills(s) 0, Pharmacy: [facility] #[id number], 183, cm, 12/19/24 10:26:00 EDT, Height/Length Dosing, [...] NS 1000 ml Bolus, 1000 mL, IV [id number] [F], 1000 mL, IV Valium 5 mg [...] days 12/22/[address] [place] [address]- Business (1) Additional Instructions: Patient Education Hyperglycemia Attestation I performed a substantive part of the MDM during the patient???s E/M visit. I personally made or approved the documented management plan and acknowledge its r (more content not included)...[facility] HospitalComment on above:Result Comment: Electronically Signed By: Jesus Grijalva PA-C\.br\Date and Time Signed: 12/19/2517:08 EDT\.br\Electronically Co-Signed By: Corky Luo MD\.br\Date and Time Co-Signed: 12/21/24 02:21 EDTHEMATOLOGYOrdered By: SYSTEM SYSTEM on 89-27-0782Biirqxzew/100 WBC (Bld)0.9 %Normal0.0 - 2.0 %Remisol Heme Basophils/Leukocytes Auto (Bld) [Pure # fraction]0.1 E9/LNormal0.0 - 0.2 E9/L Remisol HemeEosinophils (Bld) [#/Vol]0.3 E9/LNormal0.0 - 0.5 E9/LRemisol Heme Eosinophils/100 WBC (Bld)4.2 %Normal0.0 - 8.0 %Remisol HemeErythrocyte distribution width (RBC) [Ratio]14.0 %Rtlxbp07.9 - 14.2 %Remisol HemeHematocrit (Bld) [Volume fraction]40.7 %Iafcmv48.7 - 49.0 %Remisol HemeHemoglobin (Bld) [Mass/Vol]14.3 g/eMDfvsxh78.5 - 17.5 gm/dLRemisol HemeLymphocytes (Bld) [#/Vol] 1.9 E9/LNormal1.0 - 4.0 E9/LRemisol HemeLymphocytes/100 WBC (Bld)26.6 %Normal 14.0 - 50.0 %Remisol HemeMCH (RBC) [Entitic mass]31.3 ppLidbgj20.0 - 34.0 pg Remisol HemeMCHC (RBC) [Mass/Vol]35.1 g/qADtpgut30.4 - 36.0 gm/dLRemisol HemeMCV (RBC) [Entitic vol]89.2 vNPkbvkb50.0 - 100.0 fLRemisol HemeMonocytes (Bld) [#/Vol]0.5 E9/LNormal0.2 - 1.0 E9/LRemisol HemeMonocytes/100 WBC (Bld)7.0 % Normal4.0 - 14.0 %Remisol HemeNeutrophils (Bld) [#/Vol]4.4 E9/LNormal2.0 - 7.5 E9/LRemisol HemeNeutrophils/100 WBC (Bld)61.3 %Guhqsd17.0 - 75.0 %Remisol Heme Platelet mean volume (Bld) [Entitic vol]8.2 fLNormal6.4 - 10.8 fLRemisol Heme Platelets (Bld) [#/Vol]205.0 E9/SJvlvmb764.0 - 500.0 E9/LRemisol HemeRBC (Bld) [#/Vol]4.6 E12/LNormal4.3 - 5.9 E12/LRemisol HemeWBC corrected for nucl RBC Auto (Bld) [#/Vol]7.1 E9/LNormal4.0 - 11.0 E9/LRemisol HemeInpatient Patient Summary on 10-48-5608Mwvsdsodd Patient SummaryInpatient Patient Summary NICOLE LORA :1960 [...] Discharge Instructions Follow up closely with your associate professor of criminal justice. Return to ER if symptoms return or worsen. Do not start tradjenta prescribed by your associate professor of criminal justice until you speak ask him it if is safe with your insulin. Can cause lows together. New Follow Up Appointments after Discharge Follow Up with KAYLA SWEENEY When: Comments: Follow as scheduled in December 2024 Where: [address] [place] [address]- Business (1) Follow Up with Mounika Brooke When: Within 7 to 10 days Comments: Call for followup appointment Where: [address] [place] [address]- Business (1) Medications What How Much When Why Instructions Next Dose New losartan (losartan 50 mg Tab) 1 Tablets By Mouth Every day Hypertension Refills: 1 Pickup at [facility] #[id number] 12/22 @ 0900am [facility] Prescription (Glucose Kit) See instructions Hyperglycemia Glucose meter. Include autolet, matching test strips, lancets, & alcohol wipes, #100 or as allowed by insurance; DX: E11.9 [id number] New Mis Prescription (Pen Needle 31G x 6mm) See instructions Hyperglycemia Refills: 1 Pen Needle 31G x 6mm [facility] GroupFA[facility] FAIRVIEWanydooR #[id number] Changed insulin regular (HumuLIN R KwikPen (Concentrated) human recombinant 500 units/ mL subcutaneous solution) See instructions Diabetes mellitus with neuropathy inject 40 units under the skin in the morning, 40 in the evening and 20 at bedtime. Pickup at [facility] #[id number] 12/21 @ 0800pm Unchanged gabapentin (gabapentin 600 mg Tab) 1 Tablets By Mouth 3 times a day resume Unchanged methocarbamol (Robaxin-750 oral tablet) 1 Tablets By Mouth 3 times a day Duration: 3 Daysresume Pharmacy Information [facility] #[id number]: [address] [place], [place] [id number] [phone] Test Results CBC BMP WBC: 7.1 E9/L [...] 25 mmol/L (12/21/24 05:04: (more content not included)...NormalSouthwest General Health CentereGFRon 84-43-9387gTZY43 mL/min/1.73 m2Low>=59South[facility] General Health CenterComment on above:Performed By: #### [id number] #### [facility] [address], [place] [address]ZXJxq 94-43-9706Gwoefsm [Mass/Vol]792 mg/xMPpnhysln80-723WkgxsySouthwest General Health CenterComment on above:Result Comment: Critical Result [id number] Called to and read back by: PADDY BETANCOURT at: 12/20/2024 15:01:20 by:[id number] Critical Result Verified by Repeat AnalysisPerformed By: #### [id number] #### [facility] [address], [place] [address]Tkqsi gap [Moles/Vol]16 mmol/LNormal6-16[facility] Health CenterComment on above:Performed By: #### [id number] #### [facility] [address], [place] [address]Rbvbdzsmwm [Mass/Vol]1.9 mg/dLHigh0.5-1.3Fisher Mercy Medical CenterComment on above:Performed By: #### [id number] #### [facility] [address], [place] [address]Rmqn nitrogen [Mass/Vol]52 mg/dLHigh5-21[facility] Health CenterComment on above:Performed By: #### [id number] #### [facility] [address], [place] [address]Occb nitrogen/Creatinine [Mass ratio]27 No NslopHhbk78-13VyovhzSouthwest General Health CenterComment on above:Performed By: #### [id number] #### [facility] [address], [place] [address]Xijrllm [Mass/Vol]8.8 mg/dLLow8.9-11.1Fisher Mercy Medical CenterComment on above:Performed By: #### [id number] #### [facility] [address], [place] [address]Ddqduagf [Moles/Vol]88 mmol/XZgp618-286WmdqgtSouthwest General Health CenterComment on above:Performed By: #### [id number] #### [facility] [address], [place] [address]OP0 [Moles/Vol]24 mmol/XJqsynn13-27YljfthSouthwest General Health Center Comment on above:Performed By: #### [id number] #### [facility] [address], [place] [address]Gfusczscm [Moles/Vol]5.0 mmol/LNormal3.5-5.3Fisher Mercy Medical CenterComment on above:Performed By: #### [id number] #### [facility] [address], [place] [address]Qryaph [Moles/Vol]123 mmol/CJki177-834NdcoreSouthwest General Health CenterComment on above:Performed By: #### [id number] #### [facility] [address], [place] [address]GHUWzy 73-80-1594Ksne HB Qnt2.86 mmol/LHigh0.02-0.27[facility] Health CenterComment on above:Performed By: #### [id number] #### [facility] [address], [place] [address]Wlcnn Gas Art, with Lytes, Gluc, [place] 5a/A Ratio Art 63.60 %Normal>=0.80[facility] General Health CenterComment on above:Performed By: #### [id number] #### [facility] [address], [place] [address]RyPC4 Art36.1 mmHgHigh5.0-15.0[facility] Comment on above:Performed By: #### [id number] #### [facility] [address], [place] [address]Tdnrzq TestPositiveNormalSouthwest General Health CenterComment on above:Performed By: #### [id number] #### [facility] [address], [place] [address]Tzyf Excess Arterial-2.8 mmol/LLow>=2.8[facility] Health CenterComment on above:Performed By: #### [id number] #### [facility] [address], [place] [address]oRj1+ Art4.78 mg/dLNormal4.40-5.30[facility] Comment on above:Performed By: #### [id number] #### [facility] [address], [place] [address]sZz- Art92.0 mmol/ZUio478.0-111.0[facility] Comment on above:Performed By: #### [id number] #### [facility] [address], [place] [address]rZnj Hyl220 mg/pXKbwqsczi10-32HcivhzSouthwest General Health Center Comment on above:Result Comment: Results Called To NICOLE MYERS By ASHLEY TUBBS12/20/2024 14:12:32 EDT And Read Back For Confirmation On _.Performed By: #### [id number] #### [facility] [address], [place] [address]tV+ Art4.5 mmol/LNormal3.5-5.3FC[facility] Comment on above:Performed By: #### [id number] #### [facility] [address], [place] [address]xUab Art.8 mmol/LNormal.5-2.2Fisher Mercy Medical CenterComment on above:Performed By: #### [id number] #### [facility] [address] [place] [address]gUj+ Kma560.0 mmol/ROkh648.0-145.0[facility] Comment on above:Performed By: #### [id number] #### [facility] [address], [place] [address]Eaxua byDCCInvalid Interpretation [facility] CampusComment on above:Performed By: #### [id number] #### [facility] [address] [place] [address]NHNEv Art2.1 %Normal1.5-4.9[facility] General Health CenterComment on above:Result Comment: Reference range Nonsmoker <1.5% Smoker <5.0% Heavy Smoker <9.0%Performed By: #### [id number] #### [facility] [address] [place] [address]BAQ4 UB58Ukekzqc Interpretation [facility] Comment on above:Performed By: #### [id number] #### [facility] [address] [place] [address]DS1Lq Art91.9 %Low93.0-100.0[facility] Health CenterComment on above:Performed By: #### [id number] #### [facility] [address], [place] [address]ALY9 (Bld) [Moles/Vol]22.0 mmol/CRtwxja84.0-26.0[facility] Health CenterComment on above:Performed By: #### [id number] #### [facility] [address] [place] [address]Rcyebwmiuo (Bld) [Mass/Vol]15.4 g/lJJvdldz68.0-17.0[facility] CenterComment on above:Performed By: #### [id number] #### [facility] [address], [place] [address]Iotpat saturation in Blood93.9 %Low95.0-100.0[facility] General Health CenterComment on above:Performed By: #### [id number] #### [facility] [address], [place] [address]N CO2 Xptcrwec81.0 siSlJowhgx96.0-45.0[facility] Health CenterComment on above:Performed By: #### [id number] #### [facility] [address], [place] [address]D O2 Fvxzqbnq63.1 erInOfx43.0-100.0[facility] Comment on above:Performed By: #### [id number] #### [facility] [address], [place] [address]gR Arterial7.314Aentzk0.350-7.450[facility] Comment on above:Performed By: #### [id number] #### [facility] [address], [place] [address]Vfgrwo SiteR RadialNormalSouthwest General Health CenterComment on above:Performed By: #### [id number] #### [facility] [address], [place] [address]Clscnf TypeArterial DrawNormalSouthwest General Health Center Comment on above:Performed By: #### [id number] #### [facility] [address], [place] [address]PER w/ Auto Diffon 94-25-0026Eisriaade/100 WBC (Bld)1.1 %Normal 0.0-2.0[facility] Health CenterComment on above:Performed By: #### [id number] #### [facility] [address], [place] [address]Pbmfssdxw/Leukocytes Auto (Bld) [Pure # fraction]0.1 E9/LNormal 0.0-0.2[facility] Medical CenterComment on above:Performed By: #### [id number] #### [facility] [address] [place] [address]Jwhwpbcexnu (Bld) [#/Vol]0.2 E9/LNormal0.0-0.5FCleveland Clinic Mercy HospitalComment on above:Performed By: #### [id number] #### [facility] [address] [place] [address]Hkybfarqllz/100 WBC (Bld)3.8 %Normal0.0-8.0[facility] Health CenterComment on above:Performed By: #### [id number] #### [facility] [address] [place] [address]Nmdlromssta distribution width (RBC) [Ratio]13.6 %Normal 10.9-14.2FCleveland Clinic Mercy HospitalComment on above:Performed By: #### [id number] #### [facility] [address] [place] [address]Anvftiinik (Bld) [Volume fraction]46.1 %Emvzle17.7-49.0[facility] Health CenterComment on above:Performed By: #### [id number] #### [facility] [address] [place] [address]Jjsifyatzl (Bld) [Mass/Vol]15.6 g/cNLmfuyy07.5-17.5FCleveland Clinic Mercy HospitalComment on above:Performed By: #### [id number] #### [facility] [address] [place] [address] 30272Bnjmqzcvknj (Bld) [#/Vol]1.3 E9/LNormal1.0-4.0[facility] Health CenterComment on above:Performed By: #### [id number] #### [facility] [address] [place] [address]Qshfnoouqpu/100 WBC (Bld)21.6 %Eryqqt04.0-50.0[facility] Health CenterComment on above:Performed By: #### [id number] #### [facility] [address], [place] [address]VMH (RBC) [Entitic mass]30.9 vzHbxgga05.0-34.0[facility] Health CenterComment on above:Performed By: #### [id number] #### [facility] [address] [place] [address]IHOG (RBC) [Mass/Vol]33.9 g/fJRepwjr92.4-36.0[facility] Health CenterComment on above:Performed By: #### [id number] #### [facility] [address] [place] [address]FPG (RBC) [Entitic vol]91.3 yBMvugfd30.0-100.0[facility] Health CenterComment on above:Performed By: #### [id number] #### [facility] [address] [place] [address] 92[address]Tzfgelchr (Bld) [#/Vol]0.6 E9/LNormal0.2-1.0[facility] Health CenterComment on above:Performed By: #### [id number] #### [facility] [address] [place] [address] 19[address]Axcwsahmsdm (Bld) [#/Vol]4.0 E9/LNormal2.0-7.5FCleveland Clinic Mercy HospitalComment on above:Performed By: #### [id number] #### [facility] [address] [place] [address] 28495Lperazujmnx/100 WBC (Bld)64.6 %Npajrp78.0-75.0[facility] Health CenterComment on above:Performed By: #### [id number] #### [facility] [address] [place] [address]Hrmqifrx mean volume (Bld) [Entitic vol]8.0 fLNormal6.4-10.8 [facility] Health CenterComment on above:Performed By: #### [id number] #### [facility] [address] [place] [address]Zrfdhzauy (Bld) [#/Vol]190.0 E9/FAnyxhh575.0-500.0[facility] Health CenterComment on above:Performed By: #### [id number] #### [facility] [address], [place] [address]TRF (Bld) [#/Vol]5.1 E12/LNormal4.3-5.9[facility] Health CenterComment on above:Performed By: #### [id number] #### [facility] [address], [place] [address]QXF corrected for nucl RBC Auto (Bld) [#/Vol]6.2 E9/LNormal 4.0-11.0[facility] Health CenterComment on above:Performed By: #### [id number] #### [facility] [address], [place] [address]TBWPTQVZEXwrxjxr By: SYSTEM SYSTEM on 66-96-2604Fjeufqn [Mass/Vol]3.5 g/dLNormal3.3 - 5.0 gm/dLRemisol ChemAlbumin/Globulin [Mass [...] mg/dL Low8.9 - 11.1 mg/dLRemisol ChemChloride [Moles/Vol]88 mmol/LIwa202 - 111 mmol/L Remisol ChemCO2 [Moles/Vol]24 mmol/SPohixu34 - 31 mmol/LRemisol ChemCreatinine [Mass/Vol]1.9 mg/dLHigh0.5 - 1.3 mg/dLRemisol VivhvPSO96 mL/min/1.73 m2Low >=59mL/min/1.73 p7Jcgfoij ChemGlobulin (S) [Mass/Vol]3.3 g/dLNormal1.4 - 4.0 gm/dLRemisol ChemGlucose [Mass/Vol]792 mg/dLInvalid Interpretation Code55 - 199 mg/dLRemisol ChemComment on above:Result Comment: Critical Result S_GLU:792 Called to and read back by: PADDY BETANCOURT at: 12/20/2024 15:01:20 by:[id number] Critical Result Verified by Repeat AnalysisPotassium [Moles/Vol]5.0 mmol/LNormal 3.5 - 5.3 mmol/LRemisol ChemProtein [Mass/Vol]6.8 g/dLNormal6.0 - 7.8 gm/dL Remisol ChemSodium [Moles/Vol]123 mmol/KPcq034 - 145 mmol/LRemisol ChemUrea nitrogen [Mass/Vol]52 mg/dLHigh5 - 21 mg/dLRemisol ChemUrea nitrogen/Creatinine [Mass ratio]27 mg/xpLlko65 - 20Remisol ChemCapillary Glucose POCon 12-20-2024 Glucose [Mass/Vol]180 mg/wOSgzp88-55ZputojSouthwest General Health CenterComment on above: Result Comment: Notified RN/KENROYerformed By: #### [id number] #### [facility] [address], [place] [address]Xehwkrv [Mass/Vol]478 mg/xEOgpwuwqy48-30CjaosnSouthwest General Health CenterComment on above:Result Comment: Notified RN/MDPerformed By: #### [id number] #### [facility] [address] [place] [address]Wpgowge [Mass/Vol]476 mg/mQZpwvrxyy30-53VabaovSouthwest General Health CenterComment on above:Result Comment: Notified RN/MDPerformed By: #### [id number] #### [facility] [address] [place] [address] 86[address]Nvvsblh [Mass/Vol]mg/nCZxyadwkx83-23OcinkoSouthwest General Health Center Comment on above:Result Comment: Notified RN/MDPerformed By: #### [id number] #### [facility] [address] [place] [address]Jdcddkt [Mass/Vol]mg/jIMohcfpbz42-76VirkldSouthwest General Health Center Comment on above:Result Comment: Notified RN/MDPerformed By: #### [id number] #### [facility] [address] [place] [address]Choyxgb [Mass/Vol]mg/zIAegagehm41-51TsgvyoSouthwest General Health Center Comment on above:Performed By: #### [id number] #### [facility] [address] [place] [address]GT Clinical Summaryon [id number] Clinical SummaryED Clinical Summary [address] [address] ED Clinical Summary Person Information Name: NICOLE LORA/[facility] Age: 64 Years : 1960 Sex: Male Language: Singaporean PCP: Mounika Brooke MD Marital Status: Phone: [phone] Visit Id: Visit Reason: Knee pain-swelling; Hyperglycemia; L KNEE PAIN Speciality: Acuity: 3 Enc Type: Observation Med Service: Medical Arrival: 12/20/2024 13:29:49 Discharge: LOS: 000 05:27 Checkin: 12/20/2024 13:29:49 Checkout: 12/20/2024 18:56:56 Dispo Type: Admitted as IP to this [facility] EVENTS: Event Name Event Status Request [...] 18:35:13 12/20/2024 18:35:13 12/20/2024 18:35:14 AD[address]ESS: [address] [id number] PHYS DOC NOTES: MEDICAL INFORMATION: Prescriptions Given: [...] 5:Acquired absence of other right toe(s); 6:Hyponatremia; 7:[facility]No[facility] Patient Education Noteon [id number] Patient Education NoteED Patient Education NoteNoKet[facility] Patient Summaryon [id number] Patient SummaryED Patient Summary [place] [id number] Patient Discharge Instructions Person Information Name: NICOLE LORA Age: 64 Years Arrival Date: 12/20/2024 13:29:49 Discharge Diagnosis: 1:Hyperglycemia; 2:Leg muscle spasm; 3:Noncompliance with medication regimen; 4:AMY (acute kidney injury); 5:Acquired absence of other right toe(s); 6:Hyponatremia; 7:Obesity Primary Care Physician: Mounika Brooke MD Provider Information Primary Provider: Nicole Myers DO Advanced Nba Player:Paddy Betancourt PA-C The exam and treatment you received in the Emergency Department were for an urgent problem and are not intended as complete care. It is important that you follow up with a doctor, nurse practitioner,or physician???s environmental assistant for ongoing care. If your symptoms [...] opioids can be used to help relieve qrebfxjv-vo-rdmpqf pain and are often prescribed following a [...] be struggling with addiction, tell your health palliative care nurse practitioner and askfor (more content not included)...[facility] HospitalExtra Blueon 08-70-2286Fmun Collected PlasmaYesInvalid Interpretation [facility] CampusComment on above:Performed By: #### [id number] #### [facility] [address], [place] [address]OZ Blood GasesOrdered By: Primo Tubbs on 5a/A Ratio Art63.60 %Normal>=0.80%[facility] Resp Auto SSAaDO2 Art36.1 mm[Hg]High5.0 - 15.0 mmHg FT Resp Auto SSAllens TestPositive (12/20/24 2:09 PM)NormalFTMC Resp Auto SSBase Excess Arterial-2.8 mmol/LLow >=2.8mmol/LFTMC Resp Auto SScCa2+ Art4.78 mg/dLNormal4.40 - 5.30 mg/dLFTMC Resp Auto SScCl- Art92.0 mmol/GPzy961.0 - 111.0 mmol/LFTMC Resp Auto SScGlu Bvu829 mg/dLInvalid Interpretation Code55 - 99 mg/dLFTMC Resp Auto SSComment on above: Result Comment: Results Called To NICOLE MYERS By ASHLEY TUBBS12/20/2024 14:12:32 EDT And Read Back For Confirmation On _.cK+ Art4.5 mmol/LNormal3.5 - 5.3 mmol/L FT Resp Auto SScLac Art0.8 mmol/LNormal0.5 - 2.2 mmol/LFTMC Resp Auto SScNa+ Qit664.0 mmol/AWah096.0 - 145.0 mmol/LFTMC Resp Auto SSDrawn byDCCInvalid Interpretation CodeFT Resp Auto SSFCOHb Art2.1 %Normal1.5 - 4.9 %FT Resp Auto SSComment on above:Interpretive Data: Reference range Nonsmoker <1.5% Smoker <5.0% Heavy Smoker <9.0%FO2Hb Art91.9 %Low93.0 - 100.0 %FT Resp Auto SSHCO3 (Bld) [Moles/Vol]22.0 mmol/HGlpdjg30.0 - 26.0 mmol/LFTMC Resp Auto SSHemoglobin (Bld) [Mass/Vol]15.4 g/rGHkimcb36.0 - 17.0 gm/dLFTMC Resp Auto SSP CO2 Tldupgpk67.0 mm[Hg]Tfrfhu80.0 - 45.0 mmHgFT Resp Auto SSP O2 Wpgwrzfj62.1 mm[Hg]Low80.0 - 100.0 mmHgFT Resp Auto SSpH (Bld)7.358 [pH]Normal7.350 - 7.450FT Resp Auto SSSample SiteR Radial (12/20/24 2:09 PM)NormalFTMC Resp Auto SSSample TypeArterial Draw (12/20/24 2:09 PM)NormalFTMC Resp Auto SSSodium [Moles/Vol]21 mmol/LInvalid Interpretation CodeFTMC Resp Auto SSHEMATOLOGYOrdered By: SYSTEM SYSTEM on 24-83-2513Zvafewwwc/100 WBC (Bld)1.1 %Normal0.0 - 2.0 %Remisol Heme Basophils/Leukocytes Auto (Bld) [Pure # fraction]0.1 E9/LNormal0.0 - 0.2 E9/L Remisol HemeEosinophils (Bld) [#/Vol]0.2 E9/LNormal0.0 - 0.5 E9/LRemisol Heme Eosinophils/100 WBC (Bld)3.8 %Normal0.0 - 8.0 %Remisol HemeErythrocyte distribution width (RBC) [Ratio]13.6 %Lffpom20.9 - 14.2 %Remisol HemeHematocrit (Bld) [Volume fraction]46.1 %Ifjqhi31.7 - 49.0 %Remisol HemeHemoglobin (Bld) [Mass/Vol]15.6 g/zZXcyyud73.5 - 17.5 gm/dLRemisol HemeLymphocytes (Bld) [#/Vol] 1.3 E9/LNormal1.0 - 4.0 E9/LRemisol HemeLymphocytes/100 WBC (Bld)21.6 %Normal 14.0 - 50.0 %Remisol HemeMCH (RBC) [Entitic mass]30.9 osCcmert98.0 - 34.0 pg Remisol HemeMCHC (RBC) [Mass/Vol]33.9 g/yLSmjoas86.4 - 36.0 gm/dLRemisol HemeMCV (RBC) [Entitic vol]91.3 hXSiiuyc81.0 - 100.0 fLRemisol HemeMonocytes (Bld) [#/Vol]0.6 E9/LNormal0.2 - 1.0 E9/LRemisol HemeMonocytes/100 WBC (Bld)8.9 % Normal4.0 - 14.0 %Remisol HemeNeutrophils (Bld) [#/Vol]4.0 E9/LNormal2.0 - 7.5 E9/LRemisol HemeNeutrophils/100 WBC (Bld)64.6 %Klkrie14.0 - 75.0 %Remisol Heme Platelet mean volume (Bld) [Entitic vol]8.0 fLNormal6.4 - 10.8 fLRemisol Heme Platelets (Bld) [#/Vol]190.0 E9/PNdxpeh877.0 - 500.0 E9/LRemisol HemeRBC (Bld) [#/Vol]5.1 E12/LNormal4.3 - 5.9 E12/LRemisol HemeWBC corrected for nucl RBC Auto (Bld) [#/Vol]6.2 E9/LNormal4.0 - 11.0 E9/LRemisol HemeHep Func Panelon 85-99-9777Rblqmpz/Globulin (S) [Mass conc ratio]1.5Wddkll5.1-2.2FCleveland Clinic Mercy HospitalComment on above:Performed By: #### [id number] #### [facility] [address], [place] [address]Dozihtbmg.indirect [Mass or moles/Vol]0.8 mg/dLNormal0.1-0.9 [facility] Health CenterComment on above:Performed By: #### [id number] #### [facility] [address], [place] [address]Ikwkrylv (S) [Mass/Vol]3.3 g/dLNormal1.4-4.0[facility] Health CenterComment on above:Performed By: #### [id number] #### [facility] [address], [place] [address]Uxvcmsx [Mass/Vol]3.5 g/dLNormal3.3-5.0[facility] Health CenterComment on above:Performed By: #### [id number] #### [facility] [address], [place] [address]CIG [Catalytic activity/Vol]156 Int._Unit/AHqxb74-17FshjqqSouthwest General Health CenterComment on above:Performed By: #### [id number] #### [facility] [address] [place] [address]SAQ No additional P-5'-P [Catalytic activity/Vol]22 Int._Unit/L Normal6-46South[facility] General Health CenterComment on above:Performed By: #### [id number] #### [facility] [address] [place] [address]WEI [Catalytic activity/Vol]18 Int._Unit/LNormal5-43[facility] Health CenterComment on above:Performed By: #### [id number] #### [facility] [address] [place] [address]Hajvmvbba [Mass/Vol]0.9 mg/dLNormal0.0-1.1FCleveland Clinic Mercy HospitalComment on above:Performed By: #### [id number] #### [facility] [address] [place] [address] 08[address]Tkdzdhurd.direct [Mass/Vol]0.1 mg/dLNormal0.0-0.4FCleveland Clinic Mercy HospitalComment on above:Performed By: #### [id number] #### [facility] [address] [place] [address]Uichlac [Mass/Vol]6.8 g/dLNormal6.0-7.8[facility] Health CenterComment on above:Performed By: #### [id number] #### [facility] [address] [place] [address]Uym-Idmpgsd Noteon 48-38-0650Gmr-Arrival NotePre-Arrival Note Pre-Arrival Summary Name: , [place] [facility] Current Date: 12/20/2024 13:30:15 EDT Gender: Male Date of : Age: 64 Pre-Arrival Type: EMS ETA: 12/20/2024 13:49:00 EDT Primary Care Physician: Presenting Problem: L knee pain, seen yesterday AMA? Pre-Arrival User: Kiersten Theodore RN Referring Source: Location: [place] Completion Date/Time: 12/20/2024 13:20:00 [facility] Emergency Department Pre-Hospital Report Form Vital Signs: Pre-Hospital Report: Treatment in Route: Response to Treatment: Misc. Issues:NormalSouthwest General Health CenterUA with Cult Rflxon 12-20-2024 Bilirubin Ql (U)NegativeNormalNegativeSouthwest General Health CenterComment on above:Performed By: #### [id number] #### [facility] [address], [place] [address]Ykxwigg (U)ClearNormalClearSouthwest General Health CenterComment on above:Performed By: #### [id number] #### [facility] [address], [place] [address]Gwbsn (U)ColorlessAbnormalYellowSouthwest General Health Center Comment on above:Result Comment: Microscopic readings are only performed on those samples that meet specific criteria set forth by [facility].Performed By: #### [id number] #### [facility] [address], [place] [address]Odvakrp Ql (U)4+ mg/dLAbnormalNegOhioHealth Marion General HospitalComment on above:Performed By: #### [id number] #### [facility] [address], [place] [address]Yzuvpwplas Auto test strip (U) [Mass/Vol]NegativeNormalNegative [facility] Health CenterComment on above:Performed By: #### [id number] #### [facility] [address], [place] [address]Opjijhh Auto test strip Ql (U)TraceAbnormalNegativeSouthwest General Health CenterComment on above:Performed By: #### [id number] #### [facility] [address] [place] [address]Itupzfrbe esterase Auto test strip Ql (U)NegativeNormalNegative [facility] Health CenterComment on above:Performed By: #### [id number] #### [facility] [address] [place] [address]Vmwbb Auto Ql (U)NegativeNormalNegativeSouthwest General Health CenterComment on above:Performed By: #### [id number] #### [facility] [address] [place] [address]Rrlupbb Auto test strip Ql (U)NegativeNormalNegativeSouthwest General Health CenterComment on above:Performed By: #### [id number] #### [facility] [address] [place] [address] 34729kY (U)5.5 [pH]Invalid Interpretation Code5.0-9.0[facility] General Health CenterComment on above:Performed By: #### [id number] #### [facility] [address] [place] [address]28[address]Shlxzag Ql (U)1+ mg/dLAbnoalNegOhioHealth Marion General HospitalComment on above:Performed By: #### [id number] #### [facility] [address] [place] [address]Zhrkaudy gravity (U) [Rel density]1.018Invalid Interpretation Code1.005-1.030[facility] General Health CenterComment on above:Performed By: #### [id number] #### [facility] [address] [place] [address] 470[address]Uqprnhpnpwrv (U) [Mass/Vol]NegativeNormalNegOhioHealth Marion General HospitalComment on above:Performed By: #### [id number] #### [facility] [address] [place] [address] 702[address]Eota of Urine collection methodClean CatchNoOur Lady of Mercy HospitalComment on above:Performed By: #### [id number] #### [facility] [address] [place] [address] 749[address]AOOTLVPZKAZsrkbdq By: SYSTEM SYSTEM on 49-36-7203Kumhlqnrn Ql (U)NegativeNormalNegativemg/dLINTEGRIS [facility]AM[facility] [place] UA Auto SSClarity (U)Clear (12/20/24 4:37 PM)NormalClearFSOUTHWESTERN MEDICAL [facility] UA Auto SSColor (U)Colorless 1 *ABN* (12/20/24 4:37 PM)Invalid Interpretation CodeYellowINTEGRIS MIAMI HOSPITAL [facility] [place] UA Auto SSComment on above:Interpretive Data: Microscopic readings are only performed on those samples that meet specific criteria set forth by [facility].Glucose Ql (U)4+ mg/dLInvalid Interpretation CodeNegativemg/dLINTEGRIS MIAMI HOSPITAL [facility] [place] UA Auto SSHemoglobin Auto test strip (U) [Mass/Vol]NegativeNormalNegativemg/dLINTEGRIS MIAMI [facility]OSP[facility] [place] UA Auto SSKetones Auto test strip Ql (U)Trace mg/dLInvalid Interpretation Code Negativemg/dLFT UA Auto SSLeukocyte esterase Auto test strip Ql (U)Negative NormalNegativeLeu/uLINTEGRIS MIAMI [facility] [place] UA Auto SSMucus Auto Ql (U)NegativeNormal Negativegraded/LPFFTMC UA Auto SSNitrite Auto test strip Ql (U)NegativeNormal Negativemg/dLFT UA Auto SSpH (U)5.5 *NA* (12/20/24 4:37 PM)Invalid Interpretation Code5.0 - 9.0[facility] UA Auto SSProtein Ql (U)1+ mg/dLInvalid Interpretation CodeNegativemg/dLINTEGRIS MIAMI [facility]OSPITAL [facility] [place] UA Auto SSSpecific gravity (U) [Rel density]1.018 *NA* (12/20/24 4:37 PM)Invalid Interpretation Code1.005 - 1.030[facility] UA Auto SS Urobilinogen (U) [Mass/Vol]NegativeNormalNegativemg/dLINTEGRIS MIAMI HOSPITAL [facility] [place] UA Auto SSURINALYSIS Ordered By: Paddy Betancourt on 47-72-9411DS Spec DescClean Catch (12/20/24 4:37 PM)NormalINTEGRIS MIAMI HOSPITAL – [place] UA Auto SS xr Chest Single Viewon 90-93-3093OJ Chest Single View Exam Date/Time: 12/20/2024 14:35 [...] Robles MD Transcribed by: KAT Technologist: Boris BARNEYSouthwest General Health CentereGFRon 46-41-1496aOMY31 mL/min/1.73 m2Low>=59South[facility] Health CenterComment on above:Performed By: #### [id number] #### [facility] [address] [place] [address] 79[address]VPFft 97-98-5734Irdkg gap [Moles/Vol]15 mmol/LNormal6-16[facility] Health CenterComment on above:Performed By: #### [id number] #### [facility] [address] [place] [address]Woihhde [Mass/Vol]8.1 mg/dLLow8.9-11.1FCleveland Clinic Mercy HospitalComment on above:Performed By: #### [id number] #### [facility] [address] [place] [address] 136[address]Texcotfz [Moles/Vol]80 mmol/YZljodytr042-922BfsoeiSouthwest General Health CenterComment on above:Result Comment: Critical Result Verified by Repeat Analysis Critical Result S_CL:80 Called to and read back by: TREMAINE LAND at: 12/19/2024 12:00:32 by:VANESSAPerformed By: #### [id number] #### [facility] [address] [place] [address] 49[address]TU3 [Moles/Vol]24 mmol/WYufomo22-33KqnhwaSouthwest General Health Center Comment on above:Performed By: #### [id number] #### [facility] [address], [place] [address]Noamihwjva [Mass/Vol]1.9 mg/dLHigh0.5-1.3FCleveland Clinic Mercy HospitalComment on above:Performed By: #### [id number] #### [facility] [address], [place] [address]Ehjcysz [Mass/Vol]1228 mg/uXJzrejslt72-870YrbqojSouthwest General Health CenterComment on above:Result Comment: Critical Result Verified by Repeat Analysis Result Verified by Dilution Critical Result S_GLU:1228 Called to and read back by: TREMAINE LAND at: 12/19/2024 12:00:32 by:KDPerformed By: #### [id number] #### [facility] [address] [place] [address]Gpsrxhgip [Moles/Vol]4.7 mmol/LNormal3.5-5.3FCleveland Clinic Mercy HospitalComment on above:Performed By: #### [id number] #### [facility] [address] [place] [address] 28[address]Arhpgc [Moles/Vol]114 mmol/HGphznylb778-003VxltglSouthwest General Health CenterComment on above:Result Comment: Critical Result Verified by Repeat Analysis Critical Result S_NA of 114 Called to and read back by: TREMAINE LAND at: 12/19/2024 12:00:32 by:KDPerformed By: #### [id number] #### [facility] [address], [place] [address]Bjob nitrogen [Mass/Vol]54 mg/dLHigh5-21South[facility] Health CenterComment on above:Performed By: #### [id number] #### [facility] [address], [place] [address]Uiwd nitrogen/Creatinine [Mass ratio]28 No MtitvYhvf35-90VgsqxnSouthwest General Health CenterComment on above:Performed By: #### [id number] #### [facility] [address], [place] [address]PTNIzk 49-39-2443Hsmp HB Qnt1.12 mmol/LHigh0.02-0.27[facility] General Health CenterComment on above:Performed By: #### [id number] #### [facility] [address] [place] [address]RZB w/ Auto Diffon 76-05-1841Hdjfcoqzj/100 WBC (Bld)0.8 %Normal 0.0-2.0[facility] Health CenterComment on above:Performed By: #### [id number] #### [facility] [address] [place] [address] 79[address]Xsweiycne/Leukocytes Auto (Bld) [Pure # fraction]0.1 E9/LNormal 0.0-0.2FCleveland Clinic Mercy HospitalComment on above:Performed By: #### [id number] #### [facility] [address] [place] [address] 00121Okzrxejtnzu (Bld) [#/Vol]0.2 E9/LNormal0.0-0.5FCleveland Clinic Mercy HospitalComment on above:Performed By: #### [id number] #### [facility] [address] [place] [address] 78304Tvdayggtlbr/100 WBC (Bld)3.6 %Normal0.0-8.0South[facility] General Health CenterComment on above:Performed By: #### [id number] #### [facility] [address] [place] [address] 33775Ramrdtcatne distribution width (RBC) [Ratio]13.4 %Normal 10.9-14.2FCleveland Clinic Mercy HospitalComment on above:Performed By: #### [id number] #### [facility] [address] [place] [address] 64591Hcsfvvwewh (Bld) [Volume fraction]46.6 %Hsdkgo73.7-49.0[facility] Health CenterComment on above:Performed By: #### [id number] #### [facility] [address] [place] [address] 65587Xlzctpjhyt (Bld) [Mass/Vol]15.3 g/pXIsuzud93.5-17.5FCleveland Clinic Mercy HospitalComment on above:Performed By: #### [id number] #### [facility] [address] [place] [address] 08285Alxmxxupoxz (Bld) [#/Vol]1.6 E9/LNormal1.0-4.0[facility] Health CenterComment on above:Performed By: #### [id number] #### [facility] [address] [place] [address] 42787Afbnvrfnhbo/100 WBC (Bld)24.8 %Uwtxtp90.0-50.0[facility] Health CenterComment on above:Performed By: #### [id number] #### [facility] [address] [place] [address] 71487SWB (RBC) [Entitic mass]31.0 wqJsognm24.0-34.0[facility] Health CenterComment on above:Performed By: #### [id number] #### [facility] [address] [place] [address] 35751OITF (RBC) [Mass/Vol]32.7 g/cHVtndei72.4-36.0[facility] Health CenterComment on above:Performed By: #### [id number] #### [facility] [address] [place] [address] 64504DGZ (RBC) [Entitic vol]94.8 qSJomnva80.0-100.0[facility] Health CenterComment on above:Performed By: #### [id number] #### [facility] [address] [place] [address] 46220Kdpcoqxvu (Bld) [#/Vol]0.6 E9/LNormal0.2-1.0[facility] Health CenterComment on above:Performed By: #### [id number] #### [facility] [address] [place] [address] 97523Emrzoyvleol (Bld) [#/Vol]3.9 E9/LNormal2.0-7.5FCleveland Clinic Mercy HospitalComment on above:Performed By: #### [id number] #### [facility] [address] [place] [address] 80484Mreszqpffou/100 WBC (Bld)61.6 %Fosskz94.0-75.0[facility] Health CenterComment on above:Performed By: #### [id number] #### [facility] [address] [place] [address] 27176Dhmodgsg955.0 E9/PMyibbd266.0-500.0[facility] Comment on above:Performed By: #### [id number] #### [facility] [address] [place] [address] 62227Etzbajmv mean volume (Bld) [Entitic vol]8.5 fLNormal6.4-10.8 [facility] Health CenterComment on above:Performed By: #### [id number] #### [facility] [address] [place] [address] 19312UYQ (Bld) [#/Vol]4.9 E12/LNormal4.3-5.9[facility] Health CenterComment on above:Performed By: #### [id number] #### [facility] [address] [place] [address] 37220OHZ corrected for nucl RBC Auto (Bld) [#/Vol]6.4 E9/LNormal 4.0-11.0[facility] General Health CenterComment on above:Performed By: #### [id number] #### [facility] [address] [place] [address] 02644Yjotvqwum Glucose POCon 88-49-3022Kjtgmrs [Mass/Vol]mg/dL Qhnwkxgl65-60LsddaeSouthwest General Health CenterComment on above:Result Comment: Notified RN/KENROYerformed By: #### [id number] #### [facility] [address] [place] [address] 21214WF Clinical Summaryon [id number] Clinical SummaryED Clinical Summary [address] [id number] ED Clinical Summary Person Information Name: NICOLE LORA/[place] Age: 64 Years : 1960 Sex: Male Language: Singaporean PCP: Mendy LYMAN, Mounika Lugo Marital Status: Phone: [phone] Visit Id: Visit Reason: Leg pain-swelling; Weakness [...] 12/19/2024 14:13:49 12/19/2024 14:13:49 12/19/2024 14:13:49 ADDRESS: [address] [place] [address] [phone] PHYS DOC NOTES: MEDICAL INFORMATION: Prescriptions Given: New Medications [id number], [address] [place], [place] [id number], [phone] methocarbamol (Robaxin-750 oral tablet) 1 Tablets By [...] Refills: 4. Misc Prescription (Freestyle Sage 2 Opheim) Use daily with sensor. Refills: 0. Misc Prescription (Freestyle Sage 2 Sensors) Apply one q 14 days. Refills: 3. Misc Prescription (Glucometer test strips) Test TID DX E11.40 on insulin. Refills: 11. Misc Prescription (Glucometer) Dispense 1 Glucometer. Refills: 0. Misc Prescription (Insulin Pen Dexter 31g x 8 mm) Use up to 4 daily. Refills: 4. (more content not included)...[facility] Patient Summaryon [id number] Patient SummaryED Patient Summary [address] [address] Patient Discharge Instructions Person Information Name: NICOLE LORA Age: 64 Years Arrival Date: 12/19/2024 10:20:20 Discharge Diagnosis: Hyperglycemia; Muscle cramps Primary Care Physician: Mounika Brooke MD Provider Information Primary Provider: Corky Luo MD Advanced Nba Player:Jesus Grijalva PA-C The exam and treatment you received in the Emergency Department were for an urgent problem and are not intended as complete care. It is important that you follow up with a doctor, nurse practitioner,or physician???s environmental assistant for ongoing care. If your symptoms [...] With: Address: When: Mounika [place] [address] [facility] (1) In 3 days 12/22/2024 In the event that this physician does not participate in your insurance network, please consult with your insurance company to find a nearby participating provider. Patient Education Materials: Hyperglycemia A MESSAGE TO ALL PATIENTS REGARDING OPIOIDS PRESCRIPTION OPIOIDS: WHAT YOU NEED TO KNOW Prescription opioids can be used to help relieve vhcwmbel-ny-qutqqf pain and are often prescribed following a [...] be struggling with addiction, tell your health palliative care nurse practitioner and askfor guidance o (more content not included)...NormalSouthwest General Health CenterExtra Blueon 29-31-7318Pyxq Collected PlasmaYesInvalid Interpretation CodeSouthwest General Health CenterComment on above:Performed By: #### [id number] #### [facility] [address] [place], [place] [address]Spq Fun Panelon 18-77-8610Xxzujnk [Mass/Vol]3.4 g/dLNormal 3.3-5.0South[facility] General Health CenterComment on above:Performed By: #### [id number] #### [facility] [address] [place], [place] [address]Cfdxsot/Globulin (S) [Mass conc ratio]1.5Dzkfjl3.1-2.2FCleveland Clinic Mercy HospitalComment on above:Performed By: #### [id number] #### [facility] [address] [place], [place] [address]MBN [Catalytic activity/Vol]208 Int._Unit/KPyfm68-14XevxfdSouthwest General Health CenterComment on above:Performed By: #### [id number] #### [facility] [address], [place] [address]IQV No additional P-5'-P [Catalytic activity/Vol]25 Int._Unit/L Normal6-46South[facility] General Health CenterComment on above:Performed By: #### [id number] #### [facility] [address] [place] [address] 22108MNK [Catalytic activity/Vol]26 Int._Unit/LNormal5-43South[facility] General Health CenterComment on above:Performed By: #### [id number] #### [facility] [address] [place] [address] 05064Eweapoicg [Mass/Vol]0.9 mg/dLNormal0.0-1.1FCleveland Clinic Mercy HospitalComment on above:Performed By: #### [id number] #### [facility] [address] [place] [address] 37627Sftfbdvub.direct [Mass/Vol]0.1 mg/dLNormal0.0-0.4FCleveland Clinic Mercy HospitalComment on above:Performed By: #### [id number] #### [facility] [address] [place] [address] 86184Xpvnxhdzp.indirect [Mass or moles/Vol]0.8 mg/dLNormal0.1-0.9 [facility] Health CenterComment on above:Performed By: #### [id number] #### [facility] [address] [place] [address] 10435Nxulnclb (S) [Mass/Vol]3.1 g/dLNormal1.4-4.0South[facility] General Health CenterComment on above:Performed By: #### [id number] #### [facility] [address] [place] [address] 70023Lppviof [Mass/Vol]6.5 g/dLNormal6.0-7.8South[facility] General Health CenterComment on above:Performed By: #### [id number] #### [facility] [address] [place] [address] 70145DN Chest Single Viewon 49-15-4156JC Chest Single ViewExam Date/Time: 12/19/2024 11:31 EDT [...] Shaquille Broussard DO Transcribed by: KAT Technologist: ECTORAvita Health System Galion HospitaleGFRon 67-95-1083jXQR53 mL/min/1.73 m2Low>=59South[facility] General Health CenterComment on above:Performed By: #### [id number] #### [facility] [address] [place] [address], [place] [address]FQ Note-Physicianon 19-70-5748QQ Note-PhysicianED Note-Physician Basic Information Time Seen: Greyson [...] day(s), # 20 cap(s), Refills(s) 0, Pharmacy: [facility], 183, cm, 12/02/24 12:47:0 (more content not included)...NormalSouthwest General Health CenterComment on above:Result Comment: Electronically Signed By: Paddy Betancourt PA-C\.br\Date and Time Signed: 12/02/2514:27 EDT\.br\Electronically Co-Signed By: Nicole Myers DO\.samir\Date and Time Co-Signed: 12/16/24 07:10 EDTBMPon 90-47-8400Fzjcd gap [Moles/Vol]16 mmol/LNormal6-16South[facility] General Health CenterComment on above: Performed By: #### [id number] #### [facility] [address] [place] [address] 42553Jhvnsxx [Mass/Vol]9.0 mg/dLNormal8.9-11.1FCleveland Clinic Mercy HospitalComment on above:Performed By: #### [id number] #### [facility] [address], [place] [address]Dnnqvzjt [Moles/Vol]87 mmol/WYvk078-877GgbesaSouthwest General Health CenterComment on above:Performed By: #### [id number] #### [facility] [address], [place] [address]LS8 [Moles/Vol]25 mmol/AYpnxlc27-24LnvepzSouthwest General Health Center Comment on above:Performed By: #### [id number] #### [facility] [address], [place] [address]Rqauxtmnih [Mass/Vol]1.6 mg/dLHigh0.5-1.3FCleveland Clinic Mercy HospitalComment on above:Performed By: #### [id number] #### [facility] [address] [place], [place] [address]Wzuicst [Mass/Vol]751 mg/vRVzxwjfnd62-636FtrvzbSouthwest General Health CenterComment on above:Result Comment: Critical Result Verified by Repeat Analysis Critical Result [id number] Called to and read back by: TREMAINE LAND at: 12/02/2024 13:48:34 by:Angelformed By: #### [id number] #### [facility] [address], [place] [address]Jmdwwxmlp [Moles/Vol]4.4 mmol/LNormal3.5-5.3FCleveland Clinic Mercy HospitalComment on above:Performed By: #### [id number] #### [facility] [address] [place] [address], [place] [address]Hlsgpf [Moles/Vol]124 mmol/DFlj104-129GgdiknSouthwest General Health CenterComment on above:Performed By: #### [id number] #### [facility] [address] [place] [address], [place] [address]Gvsm nitrogen [Mass/Vol]40 mg/dLHigh5-21South[facility] General Health CenterComment on above:Performed By: #### [id number] #### [facility] [address] [place] [address] 949[address]Anpe nitrogen/Creatinine [Mass ratio]25 No JdrfuBuey94-22EkxodcSouthwest General Health CenterComment on above:Performed By: #### [id number] #### [facility] [address] [place] [address] 43845TDH w/ Auto Diffon 79-95-4077Vnnyovshh/100 WBC (Bld)0.6 %Normal 0.0-2.0[facility] General Health CenterComment on above:Performed By: #### [id number] #### [facility] [address] [place] [address] 26479Rjhsyhmft/Leukocytes Auto (Bld) [Pure # fraction]0.0 E9/LNormal 0.0-0.2FCleveland Clinic Mercy HospitalComment on above:Performed By: #### [id number] #### [facility] [address] [place] [address] 60630Ptqfrsifpxg (Bld) [#/Vol]0.2 E9/LNormal0.0-0.5FCleveland Clinic Mercy HospitalComment on above:Performed By: #### [id number] #### [facility] [address] [place] [address] 26421Xvclogflllx/100 WBC (Bld)2.8 %Normal0.0-8.0[facility] General Health CenterComment on above:Performed By: #### [id number] #### [facility] [address] [place] [address] 68334Sngfgeiiqbc distribution width (RBC) [Ratio]13.4 %Normal 10.9-14.2FCleveland Clinic Mercy HospitalComment on above:Performed By: #### [id number] #### [facility] [address] [place] [address] 02573Ddhlmovtwi (Bld) [Volume fraction]48.9 %Qbsgui15.7-49.0[facility] Health CenterComment on above:Performed By: #### [id number] #### [facility] [address] [place] [address] 864[address]Cwtrtrfcvv (Bld) [Mass/Vol]16.6 g/dWLgsjat37.5-17.5FCleveland Clinic Mercy HospitalComment on above:Performed By: #### [id number] #### [facility] [address] [place] [address] 63715Fpmcgslgrld (Bld) [#/Vol]1.2 E9/LNormal1.0-4.0[facility] Health CenterComment on above:Performed By: #### [id number] #### [facility] [address] [place] [address] 44297Iabxzrocxzv/100 WBC (Bld)20.6 %Jbyftz07.0-50.0[facility] Health CenterComment on above:Performed By: #### [id number] #### [facility] [address] [place] [address] 09039IND (RBC) [Entitic mass]31.4 dnRcxzcc41.0-34.0[facility] Health CenterComment on above:Performed By: #### [id number] #### [facility] [address] [place] [address] 67663UWJN (RBC) [Mass/Vol]33.9 g/mYKpvtsn53.4-36.0[facility] Health CenterComment on above:Performed By: #### [id number] #### [facility] [address] [place] [address] 10155MZH (RBC) [Entitic vol]92.6 uNMfgpgo76.0-100.0[facility] Health CenterComment on above:Performed By: #### [id number] #### [facility] [address] [place] [address] 14165Wdbbqwhvl (Bld) [#/Vol]0.4 E9/LNormal0.2-1.0[facility] Health CenterComment on above:Performed By: #### [id number] #### [facility] [address] [place] [address] 26817Yodppgwqxzl (Bld) [#/Vol]4.1 E9/LNormal2.0-7.5FCleveland Clinic Mercy HospitalComment on above:Performed By: #### [id number] #### [facility] [address], [place] [address]Okseebpdktd/100 WBC (Bld)69.1 %Ewvttt39.0-75.0[facility] General Health CenterComment on above:Performed By: #### [id number] #### [facility] [address], [place] [address]Brudqdzw mean volume (Bld) [Entitic vol]7.5 fLNormal6.4-10.8 [facility] Health CenterComment on above:Performed By: #### [id number] #### [facility] [address] [place] [address] 037[address]Tklmalfkm (Bld) [#/Vol]268.0 E9/NDseqps889.0-500.0[facility] General Health CenterComment on above:Performed By: #### [id number] #### [facility] [address] [place] [address] 49310ZFA (Bld) [#/Vol]5.3 E12/LNormal4.3-5.9South[facility] General Health CenterComment on above:Performed By: #### [id number] #### [facility] [address] [place] [address] 26897GSF corrected for nucl RBC Auto (Bld) [#/Vol]6.0 E9/LNormal 4.0-11.0[facility] General Health CenterComment on above:Performed By: #### [id number] #### [facility] [address] [place] [address] 98962BYPFKSBMCEqvjmnw By: SYSTEM SYSTEM on 20-82-7414Hfjqk gap [Moles/Vol]16 mmol/LNormal6 - 16 mEq/LRemisol ChemCalcium [Mass/Vol]9.0 mg/dL Normal8.9 - 11.1 mg/dLRemisol ChemChloride [Moles/Vol]87 mmol/IJoe816 - 111 mmol/LRemisol ChemCO2 [Moles/Vol]25 mmol/FGnqbpx57 - 31 mmol/LRemisol Chem Creatinine [Mass/Vol]1.6 mg/dLHigh0.5 - 1.3 mg/dLRemisol QxcjvNHI31 mL/min/1.73 m2Low>=59mL/min/1.73 w5Rbelzgj ChemGlucose [Mass/Vol]751 mg/dLInvalid Interpretation Code55 - 199 mg/dLRemisol ChemComment on above:Result Comment: Critical Result Verified by Repeat Analysis Critical Result [id number] Called to and read back by: TREMAINE LAND at: 12/02/2024 13:48:34 by:CMKPotassium [Moles/Vol]4.4 mmol/LNormal3.5 - 5.3 mmol/L Remisol ChemSodium [Moles/Vol]124 mmol/LFmn143 - 145 mmol/LRemisol ChemUrea nitrogen [Mass/Vol]40 mg/dLHigh5 - 21 mg/dLRemisol ChemUrea nitrogen/Creatinine [Mass ratio]25 mg/seLkke91 - 20Remisol ChemED Clinical Summaryon [id number] Clinical SummaryED Clinical Summary [place] [id number] ED Clinical Summary Person Information Name: NICOLE LORA/[facility] Age: 64 Years : 1960 Sex: Male Language: Singaporean PCP: Mounika Brooke MD Marital Status: Phone: [phone] Visit Id: Visit Reason: Nausea; Dehydration; PT [...] 12/02/2024 15:24:12 12/02/2024 15:24:12 12/02/2024 15:24:12 ADDRESS: [address] [place] [phone] PHYS DOC NOTES: MEDICAL INFORMATION: Prescriptions Given: New Medications [id number], [address] [place] [phone], [phone] cefdinir (cefdinir 300 mg Cap) 1 Capsules By Mouth every 12 hours for 10 Days. Refills: 0. Medications to Continue Taking That Have Changed [id number], [address] [place] [phone], [phone] START: doxycycline (doxycycline hyclate 100 mg Cap) [...] Misc Prescription (Freestyle Li (more content not included)...[facility] CenterED Note-Nursingon 53-79-0489DY Note-NursingED Note-Nursing pt. leaves AMA at this time. paper signed.[facility] CenterED Patient Summaryon [id number] Patient SummaryED Patient Summary [place] [id number] Patient Discharge Instructions Person Information Name: NICOLE LORA Age: 64 Years Arrival Date: 12/02/2024 12:35:03 Discharge Diagnosis: Bronchitis; Hyperglycemia; Left against medical advice Primary Care Physician: Mounika Brooke MD Provider Information Primary Provider: Nicole Myers DO Advanced Nba Player:Paddy Betancourt PA-C The exam and treatment you received in the Emergency Department were for an urgent problem and are not intended as complete care. It is important that you follow up with a doctor, nurse practitioner,or physician???s environmental assistant for ongoing care. If your symptoms [...] With: Address: When: Mounika [place] [address] [facility] (1) In 3 days 12/05/2024 Comments: Call Dr for diagnosis based follow up In the event that this physician does not participate in your insurance network, please consult with your insurance company to find a nearby participating provider. Patient Education Materials: Acute Bronchitis, Adult; Type 2 Diabetes Mellitus, Self-Care, Adult, Fzuc-xf-Xvfp; Hyperglycemia A MESSAGE TO ALL PATIENTS REGARDING OPIOIDS PRESCRIPTION OPIOIDS: WHAT YOU NEED TO KNOW Prescription opioids can be used to help relieve heleyutt-bk-qrjvtw pain and are often prescribed following a [...] www.cdc.gov/drugoverdose to lear (more content not included)...Normal [facility] Health CenterExtra Blueon 40-83-4918Psxn Collected PlasmaYes Invalid Interpretation CodeFisher Mercy Medical CenterComment on above:Performed By: #### [id number] #### [facility] [address] [place], [place] [address]WYUNENUKAXZnsjlly By: SYSTEM SYSTEM on 34-63-4423Yyccowzph/100 WBC (Bld)0.6 %Normal0.0 - 2.0 %Remisol HemeBasophils/Leukocytes Auto (Bld) [Pure # fraction]0.0 E9/LNormal0.0 - 0.2 E9/LRemisol HemeEosinophils (Bld) [#/Vol]0.2 E9/LNormal0.0 - 0.5 E9/LRemisol HemeEosinophils/100 WBC (Bld)2.8 %Normal0.0 - 8.0 %Remisol HemeErythrocyte distribution width (RBC) [Ratio]13.4 %Vmrwlw74.9 - 14.2 %Remisol HemeHematocrit (Bld) [Volume fraction]48.9 %Lciwjf25.7 - 49.0 % Remisol HemeHemoglobin (Bld) [Mass/Vol]16.6 g/rASlxlsl81.5 - 17.5 gm/dLRemisol HemeLymphocytes (Bld) [#/Vol]1.2 E9/LNormal1.0 - 4.0 E9/LRemisol Heme Lymphocytes/100 WBC (Bld)20.6 %Cpceju12.0 - 50.0 %Remisol HemeMCH (RBC) [Entitic mass]31.4 wsMaeifh41.0 - 34.0 pgRemisol HemeMCHC (RBC) [Mass/Vol]33.9 g/dL Qmhjzs41.4 - 36.0 gm/dLRemisol HemeMCV (RBC) [Entitic vol]92.6 cKStsxfv75.0 - 100.0 fLRemisol HemeMonocytes (Bld) [#/Vol]0.4 E9/LNormal0.2 - 1.0 E9/LRemisol HemeMonocytes/100 WBC (Bld)6.9 %Normal4.0 - 14.0 %Remisol HemeNeutrophils (Bld) [#/Vol]4.1 E9/LNormal2.0 - 7.5 E9/LRemisol HemeNeutrophils/100 WBC (Bld)69.1 % Qetssj95.0 - 75.0 %Remisol HemePlatelet mean volume (Bld) [Entitic vol]7.5 fL Normal6.4 - 10.8 fLRemisol HemePlatelets (Bld) [#/Vol]268.0 E9/RJpkupg800.0 - 500.0 E9/LRemisol HemeRBC (Bld) [#/Vol]5.3 E12/LNormal4.3 - 5.9 E12/LRemisol HemeWBC corrected for nucl RBC Auto (Bld) [#/Vol]6.0 E9/LNormal4.0 - 11.0 E9/L Remisol HemeXR Chest Single Viewon [id number] Chest Single ViewExam Date/Time: 12/02/2024 13:58 EDT [...] Shaquille Broussard DO Transcribed by: KAT Technologist: ArnoldSouthwest General Health CentereGFRon 22-72-0909mUQK17 mL/min/1.73 m2Low>=59South[facility] General Health CenterComment on above:Performed By: #### [id number] #### [facility] [address] [place] [address] 12225Wddiezn (Bld) [Mass/Vol]on 03-79-5995Xxajaih Blood, PMT743 mg/dLMercy McCune-Brooks HospitalLaboratory - Hematology and Cell countson 74-70-2680YbB6v (Bld) [Mass fraction]12.9 %[facility] HealthcareNo Panel Informationon 55-37-0788FWRHSouthPointe Hospital eye Ophthalmologic treatmenton 73-86-1135KFYXMercy McCune-Brooks HospitalRadiology Study observation (narrative)[facility]une-Brooks HospitalOptical coherence tomography study reporton 63-17-4686OVBZSouthPointe Hospital Eye Quality was good. Scan locations included subfoveal, juxtafoveal, extrafoveal, temporal. Progression has been stable. Notes Proliferative diabetic retinopathy of left eyeSelect [facility]ty Hospital Radiology Study observation (narrative)[facility] HealthcareGlucose (Bld) [Mass/Vol] Ordered By: Amanda Cesar on 10-23-3440Ldwxvte Blood, YWV434 mg/dLNevada Regional Medical Center HealthcareED Clinical Summaryon [id number] Clinical SummaryED Clinical Summary [address] [address] ED Clinical Summary Person Information Name: NICOLE LORA/[facility] Age: 64 Years : 1960 Sex: Male Language: Singaporean PCP: Mounika Brooke MD Marital Status: Phone: [phone] Visit Id: Visit Reason: Arm pain-swelling; RIGHT [...] 07/09/2024 16:21:24 07/09/2024 16:21:24 07/09/2024 16:21:24 ADDRESS: [address] [place] [phone] [facility] DOC NOTES: MEDICAL INFORMATION: Prescriptions Given: New Medications [id number], [address] [place], [place] [id number], [phone] acetaminophen-oxycodone (Percocet 5 mg-325 mg oral tablet) [...] Refills: 4. Misc Prescription (Freestyle Sage 2 Opheim) Use daily with sensor. Refills: 0. Misc Prescription (Freestyle Sage 2 Sensors) Apply one q 14 days. Refills: 3. Misc Prescription (Glucometer test strips) Test TID DX E11.40 on insulin. Refills: 11. Misc Prescription (Glucometer) Dispense 1 Glucometer. Refills: 0. Misc Prescription (Insulin Pen Dexter 31g x 8 mm) Use up to [...] every 8 hours a (more content not included)...[facility]isPort [facility]osit [facility]one Medical CenterED Note-Physician on 69-95-0845IB Note-PhysicianED Note-Physician Basic Information Time Seen: Jesus [...] pain for 3 day(s), 10 tab(s), Refill(s)0, [id number], 183, cm, 07/09/24 14:44:00 EST, Height/Length Dosing, [...] 3 days 07/12/2024 EST [address] [place] [address]- Business (1) Additional Instructions: Patient Education Tendinitis [...] made to ensure accuracy, however, inadvertently computerized bucket hooker mistakes may be present. Appropriate healthcare PPE [...] Major depressive disorder, severe (more content not included)...[facility] HospitalComment on above: Result Comment: Electronically Signed By: Jesus Grijalva PA-C\.br\Date and Time Signed: 07/09/2416:16 EST\.br\Electronically Co-Signed By: Nicole Myers DO\.br\Date and Time Co-Signed: 07/09/24 18:49 ESTED Patient Summaryon 49-70-8530PL Patient SummaryED Patient Summary [place] [id number] Patient Discharge Instructions Person Information Name: NICOLE LORA Age: 64 Years Arrival Date: 07/09/2024 14:35:34 Discharge Diagnosis: Left shoulder pain; Tendinitis Primary Care Physician: Mounika Brooke MD Provider Information Primary Provider: Nicole Myers DO Advanced Nba Player:Jesus Grijalva PA-C The exam and treatment you received in the Emergency Department were for an urgent problem and are not intended as complete care. It is important that you follow up with a doctor, nurse practitioner,or physician???s environmental assistant for ongoing care. If your symptoms become worse or you do not improve asexpected and you are unable to reach your usual health care provider, you should return to the Emergency Department. We are available 24 hours a day. NICOLE LORA has been given the following list of patient education materials, prescriptions and follow-up instructions: Follow-up Instructions: With: Address: When: Zak Ishmael [address] [place], [place] [id number] business (4) In 3 days 07/12/2024 In the event that this physician does not participate in your insurance network, please consult with your insurance company to find a nearby participating provider. Patient Education Materials: Anjali A MESSAGE TO ALL PATIENTS REGARDING OPIOIDS PRESCRIPTION OPIOIDS: WHAT YOU NEED TO KNOW Prescription opioids can be used to help relieve yqeqtavn-vf-phcwpr pain and are often prescribed following a [...] be struggling with addiction, tell your health palliative care nurse practitioner and askfor ernst (more content not included)...[facility] HospitalXR Shoulder Complete Righton 05-26-8097YE Shoulder Complete Right Exam Date/Time: 07/09/2024 15:44 [...] Ka,r in mGy = na DAP = naNorL[facility] Clinical Summaryon 76-72-1461KQ Clinical SummaryED Clinical Summary [place] [id number] ED Clinical Summary Person Information Name: NICOLE LORA/[facility] Age: 64 Years : 1960 Sex: Male Language: Singaporean PCP: Mounika Brooke MD Marital Status: Phone: [phone] Visit Id: Visit Reason: Rib/trunk pain-swelling; RIB [...] 06/23/2024 14:01:17 06/23/2024 14:01:17 06/23/2024 14:01:17 ADDRESS: [address] [place] [phone] PHYS DOC NOTES: MEDICAL INFORMATION: Prescriptions Given: New Medications [id number], [address] [place], [place] [id number], [phone] acetaminophen-oxycodone (acetaminophen-oxycodone 325 mg-5 mg Tab) 1 Tablets By Mouth every 6 hours as needed for pain for 3 Days. Refills: 0. Medications to Continue Taking That Have Changed [id number], [address] [place], [place] [id number], [phone] START: doxycycline (doxycycline hyclate 100 mg Cap) [...] Refills: 4. Misc Prescription (Freestyle Sage 2 Opheim) Use daily with sensor. Refills: 0. Misc Prescription (Freestyle Sage 2 Sensors) Apply one q 14 days. Refills: 3. Misc Prescription (Glucometer test strips) Test TID DX E11.40 on insulin. Refills: 11. Misc Prescription (Glucometer) Dispense 1 Glucometer. Refills: 0. Misc Prescription (Insulin Pen Dexter 31g x 8 mm) Use up to [...] PATIENT EDUCATION INFORMATION: Inst (more content not included)...[facility] CenterED Note-Physicianon 51-31-4172KD Note-PhysicianED Note-Physician Basic Information Time Seen: Greyson [...] for 3 day(s), 12 tab(s), Refill(s) 0, [facility] #[id number], 183, cm, 06/23/24 13:45:00 EST, Height/Length Dosing, 143, kg, 06/23/24 13:45:00 EST, Weight Dosing doxycycline, 100 mg = 1 cap(s), Oral, BID, # 20 cap(s), Refills(s) 0, Pharmacy: [facility] #[id number], 183, cm, 06/23/24 13:45:00 EST, Height/Length Dosing, 143, kg, 06/23/24 13:45:00 EST, Weight Dosing Disposition Plan Patient Discharge Condition Stable Discharge Disposition To home Discharge Prescription List Prescriptions acetaminophen-oxycodone 325 mg-5 mg Tab, 1 tab(s), Oral, q6hr, PRN doxycycline hyclate 100 mg Cap, 100 mg= 1 cap(s), Oral, BID Follow-up With When Contact Information Mounika Brooke In 3 days 06/26/2024 [facility] [address] [place] [address]- Business (1) Additional Instructions: Call Dr for diagnosis based follow up Patient Education Community-Acquired Pneumonia, Adult, Aoxn-bw-Okse Rib Contusion Attestation Patient seen and evaluated by the physician environmental assistant. Attending physician was present in the emergency department and supervised care. This visit was performed by both the physician and an APC. I performed all aspects of the MDM as documented. This report was transcribed using voice recognition software. Every effort was made to ensure accuracy, however, inadvertently computerized bucket hooker mistakes may be present. Appropriate healthcare PPE was used in evaluating this patient. The patient was placed in a mask. The healthcare provider was wearing mask, gloves, and utilizing proper hand hygiene. All equipment was properly cleansed. I performed a substantive part of the MDM during (more content not included)...[facility] HospitalComment on above:Result Comment: Electronically Signed By: Paddy Betancourt PA-C\.br\Date and Time Signed: 06/23/2414:07 EST\.br\Electronically Co-Signed By: Alejandro Silva M.D.\.br\Date and Time Co-Signed: 06/23/24 14:26 ESTED Patient Summaryon 06-23-2024 ED Patient SummaryED Patient Summary [address] [address] Patient Discharge Instructions Person Information Name: NICOLE LORA Age: 64 Years Arrival Date: 06/23/2024 13:36:38 Discharge Diagnosis: Contusion of rib on left side; Pneumonia Primary Care Physician: Mounika Brooke MD Provider Information Primary Provider: Alejandro Silva M.D. Advanced Nba Player:None The exam and treatment you received in the Emergency Department were for an urgent problem and are not intended as complete care. It is important that you follow up with a doctor, nurse practitioner,or physician???s environmental assistant for ongoing care. If your symptoms [...] Instructions: With: Address: When: Mounika Brooke [address] [facility] [place] [address] [facility] (1) In 3 days 06/26/2024 Comments: Call for diagnosis based follow up In the event that this physician does not participate in your insurance network, please consult with your insurance company to find a nearby participating provider. Patient Education Materials: Community-Acquired Pneumonia, Adult, Kowz-mt-Htgi; Rib Contusion A MESSAGE TO ALL PATIENTS REGARDING OPIOIDS PRESCRIPTION OPIOIDS: WHAT YOU NEED TO KNOW Prescription opioids can be used to help relieve dsdzgsyd-wy-xmrtsw pain and are often prescribed following a [...] and overdose. ??? If (more content not included)...[facility] HospitalHEMOGLOBIN A1con 50-40-1374OqS5y (Bld) [Mass fraction]%High<5.7Quest DiagnosticsComment on above:Order Comment: [...] diabetes for children.Performed By: #### 496 #### [employer] [address], [address] [place] [phone] Die Trimmer: Anson Henley MDHbA1c (Bld) [Mass fraction]on 06-22-2024 Interpretation and review of laboratory resultsAbSturgis Hospital FASTING:UNKNOWN FASTING: UNKNOWNQUESTPerforming Organization Information Site ID: QPT Name: [facility] Address: [address] [place] [address], [address] [place] [phone] Director: Anson Henley [facility] - Hematology and Cell countson 87-76-5833DnW4e (Bld) [Mass fraction][facility] Comment on above:For someone without known diabetes, [...] in mGy = na DAP = na [facility] HospitalRadiology Study observation (narrative)[facility] HospitalXR CHEST 2 VIEWSOrdered By: Radiologist Radiology on 23-63-4770JAROMercy McCune-Brooks Hospital Work Phone: XR Chest 2 Viewson 21-44-3167UV Chest 2 ViewsExam Date/Time: 06/21/2024 14:55 EDT [...] in mGy = na DAP = naNormalFisher [facility] eye Ophthalmologic treatmenton 64-41-6698ZOXH HealthcareRadiology Study observation (narrative)[facility] Optical coherence tomography study reporton 71-42-3717YRUYMercy McCune-Brooks HospitalRight Eye Quality was good. Left Eye Quality was good. Scan locations included subfoveal, juxtafoveal, extrafoveal. Progression has been stable. Findings include abnormal foveal contour, cystoid macular edema. Notes Neovascularization of the disc (NVD) OSSelect Specialty HospitalRadiology Study observation (narrative)[facility] eye Ophthalmologic treatmenton 75-23-6486MTRYMercy McCune-Brooks HospitalRadiology Study observation (narrative)[facility] Optical coherence tomography study reporton 77-00-5919Lkqqp Eye Quality was good. Scan locations included subfoveal, juxtafoveal, extrafoveal. Progression has no prior data. Findings include abnormal foveal contour. Left Eye Quality was good. Scan locations included subfoveal, juxtafoveal, extrafoveal. Progression has no prior data. Findings include abnormal foveal contour, cystoid macular edema. Notes Pdr os Mod bgdr odNOMS [facility] HealthcareRadiology Study observation (narrative) NOMSuman HealthcareBMPon 20-13-9355Xnhuk gap [Moles/Vol]13 mmol/LNormal6-16[facility] CenterComment on above:Performed By: #### [id number] #### [facility] [address] [place], [place] [address]Kkagocw [Mass/Vol]8.6 mg/dLLow8.9-11.1FCleveland Clinic Mercy HospitalComment on above:Performed By: #### [id number] #### [facility] [address] [place], [place] [address]Newhdlxg [Moles/Vol]100 mmol/TTvk742-008CwzkdbSouthwest General Health CenterComment on above:Performed By: #### [id number] #### [facility] [address] [place], [place] [address]DI4 [Moles/Vol]26 mmol/GNlmojg81-45AqtqcaSouthwest General Health Center Comment on above:Performed By: #### [id number] #### [facility] [address] [place], [place] [address]Eegrjvhtlf [Mass/Vol]1.5 mg/dLHigh0.5-1.3FCleveland Clinic Mercy HospitalComment on above:Performed By: #### [id number] #### [facility] [address] [place], [place] [address]Idnxveu [Mass/Vol]330 mg/aALmue74-107IfsvqySouthwest General Health CenterComment on above:Performed By: #### [id number] #### [facility] [address] [place], [place] [address]Ulcdiihic [Moles/Vol]4.8 mmol/LNormal3.5-5.3FCleveland Clinic Mercy HospitalComment on above:Performed By: #### [id number] #### [facility] [address] [place], [place] [address]Pnllhl [Moles/Vol]134 mmol/AMop943-940AqazrlSouthwest General Health CenterComment on above:Performed By: #### [id number] #### [facility] [address] [place], [place] [address]Rgvj nitrogen [Mass/Vol]29 mg/dLHigh5-21[facility] Health CenterComment on above:Performed By: #### [id number] #### [facility] [address] [place], [place] [address]Narx nitrogen/Creatinine [Mass ratio]19 No GgmujSnnkhf70-74 [facility] CenterComment on above:Performed By: #### [id number] #### [facility] [address] [place], [place] [address]FRXPUBZJLWrkfnhl By: SYSTEM SYSTEM on 01-71-0208Kktdt gap [Moles/Vol]13 mmol/LNormal6 - 16 mEq/LRemisol ChemCalcium [Mass/Vol]8.6 mg/dLLow 8.9 - 11.1 mg/dLRemisol ChemChloride [Moles/Vol]100 mmol/KUax290 - 111 mmol/L Remisol ChemCO2 [Moles/Vol]26 mmol/SYqdbzk18 - 31 mmol/LRemisol ChemCreatinine [Mass/Vol]1.5 mg/dLHigh0.5 - 1.3 mg/dLRemisol CivjvBLZ39 mL/min/1.73 m2Low >=59mL/min/1.73 j8Ezawtap ChemGlucose [Mass/Vol]330 mg/iJUnow36 - 199 mg/dL Remisol ChemPotassium [Moles/Vol]4.8 mmol/LNormal3.5 - 5.3 mmol/LRemisol Chem Sodium [Moles/Vol]134 mmol/FBil148 - 145 mmol/LRemisol ChemUrea nitrogen [Mass/Vol]29 mg/dLHigh5 - 21 mg/dLRemisol ChemUrea nitrogen/Creatinine [Mass ratio]19 mg/kwCpixar72 - 20Remisol ChemeGFRon 10-15-1129xKGR37 mL/min/1.73 m2Low >=59[facility] CenterComment on above:Order Comment: Order added by Discern Expert.Performed By: #### [id number] #### [facility] [address] [place], [place] [address]Vwisvtlset Visit Summaryon 51-25-0604Wgznummjke Visit Summary [facility] HospitalPatient Educationon 51-06-6522Jvlwtuf Education [facility] HospitalUrology Office/Clinic Noteon 98-90-7244Zxazyrw Office/Clinic NoteNoOur Lady of Mercy HospitalComment on above:Result Comment: Electronically Signed By: Taz THOMAS MD\.br\Date and Time Signed: 02/28/24 08:10 EDT\.br\Electronically Co-Signed By: Basia Claire\.br\Date and Time Co-Signed: 02/28/24 08:05 EDTAmbulatory Visit Summaryon 22-74-4870Kpbrmtbxub Visit SummaryNoOur Lady of Mercy HospitalPatient Educationon 80-89-8753Nxaqkdu EducationNoOur Lady of Mercy HospitalUrology Office/Clinic Noteon 91-90-7868Gfowixw Office/Clinic NoteNoOur Lady of Mercy HospitalComment on above:Result Comment: Electronically Signed By: BRYAN Bahena APRN, [place] X\.br\Date and Time Signed: 02/11/24 23:10 EDTAmbulatory Visit Summaryon 01-51-0580Fwpdrnvgeh Visit QitclttPktqts[address], [address] [place] [address]- \.br\ Monday 10:45 AMEDT \.br\ With: Juany GALDAMEZ, Sukh Srinivasan\.br\ Where: [facility]\.br\ Medications\.br\ What How Much When Why Instructions\.br\ Unchanged acetaminophen-hydrocodone ([place] 325 mg-5 mg oral tablet) See instructions [...] Unchanged Misc Prescription (Pito estyle Sage 2 Opheim) See instructions Use daily with sensor \.br\ Unchanged Misc Prescription (Freestyle Sage 2 Sensors) See instructions Apply one q 14 days \.br\ Unchanged Misc Prescription (Glucometer test strips) See instructions Test TID DX E11.40 on insulin \.br\ Unchanged Misc Prescription (Glucometer) See instructions Diabetes mellitus with neuropathy Dispense 1 Glucometer \.br\ Unchanged Misc Prescription (Insulin Pen Dexter 31g x 8 mm) See instructions Use [...] you for choosing us for your care.\.br\ \.br\[facility] Consent for Procedure/Surgeryon 09-13-1084Kaoeour for Procedure/Surgery [id number]#1.00TIFFNoOur Lady of Mercy HospitalConsent for Treatmenton 05-00-4975Maejtqx for Treatment 1[id number]#1.00TIFFNoOur Lady of Mercy HospitalInpatient Patient Summaryon 62-26-9375Balgavpah Patient SummaryNormal [facility] CenterIntraOperative Documentson 41-80-1457CydvhJoxrlufnp Rlcosumwg824.45.122.5.972532553451783115699914067#1.00TIFFNoOur Lady of Mercy HospitalMain OR Intraoperative Recordon 23-42-2490Esez OR Intraoperative RecordNormDunlap Memorial HospitalMain OR Preoperative Recordon 02-05-2024 Main OR Preoperative RecordNoOur Lady of Mercy HospitalOperative Reporton 69-11-0070Npphzrrnl ReportNoOur Lady of Mercy HospitalComment on above: Result Comment: Electronically Signed By: Taz THOMAS MD\.br\Date and Time Signed: 02/05/24 13:27 EDTOutpatient Surgery Discharge Instructionon 02-05-2024 Outpatient Surgery Discharge Instruction [id number]#1.00TIFChildren's Hospital of ColumbusOutpatient Surgery Discharge InstructionNoOur Lady of [facility] Hospital Patient Educationon 99-33-8481Yrxilml EducationAvita Health System Galion Hospital Insurance Correspondenceon 73-34-1109Hxmuvcvpy Correspondence 17[id number]#1.00TIFChildren's Hospital of ColumbusMulti-Wound Charton 98-25-7840Agqyv-Wound Chart [id number]#1.00TIFChildren's Hospital of ColumbusNursing Note - Woundon 05-61-9824Uibxnpd Note - Wound 159.140.124.25.23698487738701182293972465#1.00TIFChildren's Hospital of ColumbusConsent for Treatmenton 68-20-4653Yfnhsry for Treatment 159.140.128.36.7051535547750150530634H3B#1.00TIFChildren's Hospital of ColumbusNursing Assessment - Woundon 57-47-5507Rjpcohu Assessment - Wound 159.140.124.25.69014986107383052458499534#1.00TIFChildren's Hospital of ColumbusPhysician Orderon 01-27-0224Rleimxzvk Order 15[id number]#1.00TIFChildren's Hospital of ColumbusPrescriptions/Work Noteson 89-13-4465Huirogotbusvu/Work Notes 170.71.121.81.033075212302440270037834571#1.00TIFChildren's Hospital of ColumbusProcedure - Woundon 28-64-2606Aolnqcsst - Wound 159.140.124.25.13790262457033523328162397#1.00TIFChildren's Hospital of ColumbusProgress Note - Woundon 71-14-6472Tukcpubc Note - Wound 159.140.124.25.34450852638398914078804162#1.00TIFChildren's Hospital of ColumbusInsurance Correspondenceon 83-67-3415Pdkmnbllp Correspondence 14[id number]#1.00TIFChildren's Hospital of ColumbusNursing Note - Woundon 57-52-4122Lsbpqav Note - Wound 159.140.124.25.05532479580757609029890144#1.00TIFChildren's Hospital of ColumbusPhysician Orderon 07-73-7368Xnzuisfwo Order 159.1[id number]#1.00TIFChildren's Hospital of ColumbusProcedure - Woundon 67-76-4206Psdmejyji - Wound 159.140.124.25.46426719051783150901456606#1.00Lima Memorial HospitalProgress Note - Woundon 99-05-1152Qyvjvjyi Note - Wound 159.140.124.25.89612412210884958899422494#1.00TIFChildren's Hospital of ColumbusConsent for Procedure/Surgeryon 58-36-2505Rwwuwcy for Procedure/Surgery 170.71.121.75.095312801711393780319770632#1.00TIFChildren's Hospital of ColumbusConsent for Procedure/Surgery 170.71.121.75.116510262600455083437087097#1.00TIFChildren's Hospital of ColumbusConsent for Treatmenton 21-83-7087Rcycwzu for Treatment 159.140.128.34.925218513300515185527736P#1.00TIFChildren's Hospital of ColumbusMulti-Wound Charton 81-69-1459Pesjt-Wound Chart 159.140.124.25.15582444981583165337539209#1.00TIFAllisonOur Lady of Mercy HospitalNursing Assessment - Woundon 98-02-6877Kqclhlr Assessment - Wound 159.140.124.25.64203043816902274969820381#1.00TIFFParkview Health Bryan Hospital CenterED Note-Physicianon 48-23-0591IL Note-PhysicianAvita Health System Galion HospitalComment on above:Result Comment: Electronically Signed By: Kaley Phan PA-C\.br\Date and Time Signed: 01/14/2417:05 EDT\.br\Electronically Co- Signed By: Nicole Myers DO\.br\Date and Time Co-Signed: 01/16/24 09:03 EDT Consent for Treatmenton 30-44-5618Ssfhzrt for Treatment 159.140.128.34.59610695165373400761410RV#1.00TIFChildren's Hospital of ColumbusDischarge Instructionson 92-27-0386Lwpmjuunz Instructions 170.71.121.79.16444507039600950001074648#1.00TIFNorwalk Memorial Hospital Clinical Summaryon 20-31-4368PE Clinical SummaryNoK[facility] Patient Education Noteon 50-80-5958VL Patient Education Note [facility] Patient Summaryon 89-53-4662HQ Patient SummaryNoOur Lady of Mercy HospitalAmbulatory Visit Summaryon 01-12-2024 Ambulatory Visit SummaryNoOur Lady of Mercy HospitalConsent for Procedure/Surgeryon 30-25-5533Nsyccym for Procedure/Surgery 170.71.121.88.444398243162273879468665935#1.00TIFChildren's Hospital of ColumbusConsent for Treatmenton 09-01-5059Sgubbch for Treatment 15[id number]#1.00TIFFAvita Health System Galion HospitalMulti-Wound Charton 88-72-7727Lkagg-Wound Chart 159.140.124.25.78100765709535004297915307#1.00TIFChildren's Hospital of ColumbusNursing Assessment - Woundon 00-55-0433Ithfkkz Assessment - Wound 159.140.124.25.81010624341840491512215319#1.00TIFChildren's Hospital of ColumbusNursing Note - Woundon 57-02-3171Ppxyhcp Note - Wound 159.140.124.25.17279184351437910889675636#1.00TIFChildren's Hospital of ColumbusPhysician Orderon 82-88-0175Nuejbmdqn Order 159.1[id number]#1.00TIFChildren's Hospital of ColumbusProcedure - Woundon 36-70-8852Jvlrjhzlh - Wound 159.140.124.25.70599367100781031847852407#1.00TIFChildren's Hospital of ColumbusProgress Note - Woundon 04-79-7595Oyfnqrth Note - Wound 159.140.124.25.71228407420728538036052787#1.00TIFChildren's Hospital of ColumbusConsent for Procedure/Surgeryon 77-52-2388Qtudnvl for Procedure/Surgery 149.45.122.5.649729837823597154909774203#1.00TIFChildren's Hospital of ColumbusConsent for Procedure/Surgery 149.45.122.5.605255518012057326275141334#1.00TIFChildren's Hospital of ColumbusConsent for Treatmenton 96-17-8840Djosnqq for Treatment 159.140.128.36.26119591392745447065B814J#1.00TIFChildren's Hospital of ColumbusMulti-Wound Charton 38-04-5022Dldfi-Wound Chart 159.140.124.25.68129636085708009254350076#1.00TIFChildren's Hospital of ColumbusNursing Assessment - Woundon 17-51-6408Chtbtnw Assessment - Wound 159.140.124.25.48281485613661303685103486#1.00TIFChildren's Hospital of ColumbusNursing Note - Woundon 48-94-3635Ytbdgez Note - Wound 159.140.124.25.82999969027850381642125652#1.00TIFChildren's Hospital of ColumbusPhysician Orderon 27-50-3484Noowjnpmu Order 159.14[id number]#1.00TIFChildren's Hospital of ColumbusProcedure - Woundon 72-50-4970Fansjzxsv - Wound 159.140.124.25.13725572582524702098923724#1.00TIFChildren's Hospital of ColumbusProgress Note - Woundon 07-42-6252Jercrdfo Note - Wound 159.140.124.25.28493905975195186346976895#1.00[facility] Memorial HospitalNursing Note - Woundon 75-49-7903Evzmgtd Note - Wound 159.140.124.25.34467036392043874335816398#1.00TIFChildren's Hospital of ColumbusPhysician Orderon 74-42-8487Ofnslxbzt Order 159.140.124.25.72461163921640521470494616#1.00TIFChildren's Hospital of ColumbusProcedure - Woundon 40-83-1461Raebjyeym - Wound 159.140.124.25.60374309264895166138905522#1.00TIFChildren's Hospital of ColumbusProgress Note - Woundon 02-43-1061Cppxwmml Note - Wound 159.140.124.25.04906106654339343260864415#1.00TIFChildren's Hospital of ColumbusConsent for Procedure/Surgeryon 93-75-0420Vgmhlfs for Procedure/Surgery 170.71.121.80.503193803808326822604343465#1.00TIFChildren's Hospital of ColumbusConsent for Treatmenton 54-46-3984Zflvsxj for Treatment 159.140.128.34.8995544266609969106253217#1.00TIFChildren's Hospital of ColumbusMulti-Wound Charton 75-70-4983Ywbqh-Wound Chart 159.140.124.25.09038380303667508259868439#1.00TIFChildren's Hospital of ColumbusNursing Assessment - Woundon 47-38-9283Gdnvpwf Assessment - Wound 159.140.124.25.93666150195844733764553729#1.00TIFChildren's Hospital of ColumbusAmbulatory Visit Summaryon 30-55-7278Upooettqyb Visit SummaryNoOur Lady of Mercy HospitalConsent for Procedure/Surgeryon 49-60-8177Ojvsuwg for Procedure/Cfdovlx255.45.122.20.367379775598083831816685947#1.00TIFChildren's Hospital of ColumbusConsent for Treatmenton 06-46-1934Zdkjzpj for Treatment 159.140.128.34.913594214969141250536245C#1.00TIFChildren's Hospital of ColumbusMulti-Wound Charton 75-80-4111Tsqsv-Wound Chart 170.71.121.117.28038386326996326603710382#1.00TIFChildren's Hospital of ColumbusNursing Assessment - Woundon 60-44-0324Pqopeix Assessment - Wound 170.71.121.117.14719193069430417115964337#1.00TIFChildren's Hospital of ColumbusNursing Note - Woundon 97-47-1174Qcfptbf Note - Wound 170.71.121.117.05933209845360222165286276#1.00TIFChildren's Hospital of ColumbusPhysician Orderon 97-95-9642Kzwfwmfeh Order 17[id number]#1.00TIFChildren's Hospital of ColumbusProcedure - Woundon 80-79-1130Yeheezinz - Wound 1[id number]#1.00[facility] Memorial HospitalProgress Note - Woundon 70-85-1365Bbxnkxgv Note - Wound 170.7[id number]#1.00TIFFNormAtrium Health Steele [facility] CenterConsenton 21-13-4058Yxlxwjh [id number]#1.00TIFFNormDunlap Memorial HospitalConsent for Procedure/Surgeryon 03-23-5799Ksgfzta for Procedure/Surgery [id number]#1.00TIFFNormDunlap Memorial HospitalConsent for Treatmenton 04-94-2586Glcjclb for Treatment [id number]#1.00TIFFAvita Health System Galion HospitalIntraOperative Documentson 56-89-5287BkaamFgapbcdhn Documents [id number]#1.00TIFFAvita Health System Galion HospitalIntraOperative [id number]#1.00TIFF [facility] HospitalMain OR Intraoperative Recordon 53-84-6839Zvnz OR Intraoperative RecordAvita Health System Galion HospitalMain OR Preoperative Recordon 06-00-3764Pngu OR Preoperative RecordAvita Health System [facility]ion Hospital Operative Reporton 77-64-0701Prhmxzbuc ReportAvita Health System Galion Hospital Comment on above:Result Comment: Electronically Signed By: Taz THOMAS MD.br\Date and Time Signed: 11/20/23 13:26 EDTProgress Note-Physicianon 83-99-2548Jsfzflco Note-PhysicianAvita Health System Galion HospitalComment on above:Result Comment: Electronically Signed By: Taz THOMAS MD.br\Date and Time Signed: 11/20/23 13:30 EDTC Blood Charcoalon 77-21-1566Jxflj Culture [facility] CenterComment on above:Performed By: #### [id number] ####[facility] [address] [place], [place] [address]Sqzox Culture CharcoalAvita Health System Galion HospitalComment on above: Performed By: #### [id number] ####[facility] [address] [place]conne[place] hospitalgr[place], [place] [address]Hpkmlrncp Auto (Bld) [#/Vol]Ordered By: Manish Fu on 00-38-7844Vpwdruxfo (Bld) [#/Vol]0.0 10*3/uL0.0-0.2FC[facility] Lutheran HospitalBasophils/100 WBC Auto (Bld)Ordered By: Manish Fu on 10-60-9782Lnamebhta/100 WBC (Bld)0.7 %.[facility] OhioCalcium [Mass/volume] in Serum or PlasmaOrdered By: Manish Doamest. [facility] [place] on 64-69-8928Exbmile [Mass/Vol]9.3 mg/dL8.6-10.3[facility] Carbon dioxide, total [Moles/volume] in Serum or PlasmaOrdered By: Manish Chasest. [facility] [place] on 77-07-7069JN8 [Moles/Vol]41.4 mmol/L21.0-31.0[facility] OhioChloride [Moles/volume] in Serum or PlasmaOrdered By: Manish [facility] on 79-55-1681Dxqnrbbx [Moles/Vol]102 mmol/P28-105ZmghufvnvSelect Medical Specialty Hospital - Southeast OhioCreatinine [Mass/volume] in Serum or PlasmaOrdered By: Manish [facility] on 90-65-5902Nyuqtzxnnu [Mass/Vol]1.47 mg/dL0.70-1.30[facility] OhioEosinophils Auto (Bld) [#/Vol]Ordered By: Manish Starkca on 17-43-6303Uoeupnhjdxj (Bld) [#/Vol]0.3 10*3/uL0.0-0.45[facility] OhioEosinophils/100 WBC Auto (Bld)Ordered By: Manish Starkca on 65-63-1829Wlmpeivzykj/100 WBC (Bld)5.6 %.[facility] OhioErythrocyte distribution width Auto (RBC) [Ratio]Ordered By: Manish Fu on 06-35-9764Itonkjhomwo distribution width (RBC) [Ratio]18.4 % 12.0-14.8[facility] OhioGlucose Glucometer (BldC) [Mass/Vol] Ordered By: Manish Fu on 45-53-5037Quefplf [Mass/Vol]165 mg/dL [facility] OhioComment on above:Random Glucose Reference Range is dependent on time and content of last meal. Glucose of more than 200 mg/dL in a nonstressed, ambulatory subject supports the diagnosis of Diabetes Mellitus.Glucose [Mass/volume] in Serum or PlasmaOrdered By: Manish Fu on 34-45-5794Akmqinm [Mass/Vol]114 mg/tG80-249BowumusxoSelect Medical Specialty Hospital [facility] [place] Comment on above:ADA recommended reference rangeRandom Glucose Reference Range is dependent on time and content of last meal. Glucose of more than 200 mg/dL in a nonstressed, ambulatory subject supports the diagnosisof Diabetes Mellitus. Hematocrit Auto (Bld) [Volume fraction]Ordered By: Mansih Fu on 20-10-9533Ichzclylfd (Bld) [Volume fraction]39.5 %38.8-50.0[facility] OhioHemoglobin [Mass/volume] in BloodOrdered By: Manish Fu on 93-34-0246Eoosbgvjif (Bld) [Mass/Vol]12.3 g/dL13.0-17.0[facility] OhioLeukocytes [#/volume] corrected for nucleated erythrocytes in Blood by Automated counOrdered By: Manish Fu on 41-16-4752WFN corrected for nucl RBC Auto (Bld) [#/Vol]6.0 10*3/uL4.1-10.5FC[facility] Luther[facility] HospitalLymphocytes Auto (Bld) [#/Vol]Ordered By: Manish Fu on 76-77-1894Cbbtszxynwu (Bld) [#/Vol]1.3 10*3/uL1.00-4.8[facility] OhioLymphocytes/100 WBC Auto (Bld)Ordered By: Manish Fu on 18-77-9777Otnifylzrub/100 WBC (Bld)21.7 %.[facility] OhioMCH Auto (RBC) [Entitic mass]Ordered By: Manish Fu on 53-92-5005IAA (RBC) [Entitic mass]26.0 pg27.5-35.2FC[facility] Luther[facility] HospitalMCHC Auto (RBC) [Mass/Vol]Ordered By: Manish Fu on 95-31-3627PNBD (RBC) [Mass/Vol]31.2 g/dL32.5-35.6FC[facility] Luther[facility] HospitalMCV Auto (RBC) [Entitic vol] Ordered By: Manish Fu on 04-00-7131XFG (RBC) [Entitic vol]83.4 fL 83.5-101[facility] OhioMonocytes Auto (Bld) [#/Vol]Ordered By: Manish Fu on 50-05-2929Pstftdvlc (Bld) [#/Vol]0.6 10*3/uL0.0-0.8 [facility] OhioMonocytes/100 WBC Auto (Bld)Ordered By: Manish Fu on 77-37-1892Pkzslwuhd/100 WBC (Bld)10.4 %.[facility] OhioNeutrophils Auto (Bld) [#/Vol]Ordered By: Manish Fu on 91-81-9325Hjjlaeemfzb (Bld) [#/Vol]3.7 10*3/uL1.8-7.7FC[facility] Luther[facility] HospitalNeutrophils/100 WBC Auto (Bld)Ordered By: Manish Fu on 91-18-9475Ugdmbjctijw/100 WBC (Bld)61.6 %.[facility] OhioNo Panel InformationOrdered By: Manish Fu on 11-17-2023 Estimated GFR (CKD-EPI)52.934 mL/MinSelect Medical Specialty Hospital - Southeast OhioPharmacy Creatinine Clearance (Chem70.70[facility] OhioNucleated erythrocytes [Presence] in Blood by Automated countOrdered By: Manish Fu on 67-51-2841Revejjwno RBC Auto Ql (Bld)0.1 /100{WBC}0-0.5FC[facility] Luther[facility] HospitalPlatelet mean volume Auto (Bld) [Entitic vol]Ordered By: Manish Fu on 06-43-5493Skuppddz mean volume (Bld) [Entitic vol]6.8 fL 6.6-10.1FC[facility] Luther[facility] HospitalPlatelets Auto (Bld) [#/Vol]Ordered By: Manish Fu on 07-23-4422Vmocrhulz (Bld) [#/Vol]248 10*3/lC672-791 [facility] OhioPotassium [Moles/volume] in Serum or Plasma Ordered By: Manish Fu on 03-18-7182Dkopkbmwl [Moles/Vol]4.5 mmol/L 3.5-5.1FC[facility] Luther[facility] HospitalRBC Auto (Bld) [#/Vol]Ordered By: Manish Fu on 79-36-4784AQC (Bld) [#/Vol]4.73 10*6/uL3.90-5.60[facility] Medical Centererum or plasma anion gap determinationOrdered By: Manish Fu on 78-29-4963Ikavm gap [Moles/Vol]10.1 mmol/L6.0-15.0 [facility] Medical Centerodium [Moles/volume] in Serum or PlasmaOrdered By: Manish Fu on 00-65-9299Difwre [Moles/Vol]149 mmol/F927-428 [facility] OhioUrea nitrogen [Mass/volume] in Serum or Plasma Ordered By: Manish Fu on 44-91-9507Spqa nitrogen [Mass/Vol]44 mg/dL 7-25[facility] OhioWBC Auto (Bld) [#/Vol]Ordered By: Manish Fu on 49-01-3337RCU (Bld) [#/Vol]6.0 10*3/uL4.1-10.5FC[facility] HospitalAdmission Noteon 27-06-2454Vbvjhrlel Note [id number]#1.00TIFFNormalSouthwest General Health CenterNo Panel InformationOrdered By: Manish Fu on 02-21-0179Xcecxcg Glucose CommentGlu2: cleaned meterSelect Medical Specialty Hospital - Southeast OhioAdmission Noteon 18-91-2381Vgyhnfbyf [id number]#1.00TIFF NormalSouthwest General Health CenterLaboratory - Chemistry and Chemistry - challengeOrdered By: Manish Fu on 10-27-4330BI9 [Moles/Vol]34.8 mmol/L 23.0-27.0[facility] OhioHCO3 (Bld) [Moles/Vol]32.6 mmol/L 23.0-29.0[facility] OhioMagnesium [Mass/volume] in Serum or PlasmaOrdered By: Manish Fu on 76-62-4908Ngboriczo [Mass/Vol]2.3 mg/dL 1.9-2.7FC[facility] HospitalNo Panel InformationOrdered By: Manish Fu on 61-89-7474Byephyvl Blood Base Excess3.8 mmol/L-3.0-3.0 [facility] OhioArterial Blood Oxygen Content8.0 mmol/L6.6-9.7 [facility] OhioArterial Blood Oxygen Exocwqckaj17.1 % 95.0-100.0[facility] OhioArterial Blood Partial Pressure CO2 70.1 mm[Hg]35.0-45.0[facility] OhioArterial Blood Partial Pressure O273.0 mm[Hg]80.0-100.0[facility] OhioArterial Blood pH7.297.35-7.45[facility] OhioBlood Gas Critical ValueSee commentSelect Medical Specialty Hospital - Southeast OhioComment on above:Critical Value called on: 11/15/2023 at 12:53Blood Gas Sample SiteRight radialSelect Medical Specialty Hospital - Southeast OhioFiO244 %[facility] OhioOxygen Delivery Device Nasal cannulaSelect Medical Specialty Hospital - Southeast OhioAlanine aminotransferase [Enzymatic activity/volume] in Serum or PlasmaOrdered By: Manish Fu on 37-17-9195VRF [Catalytic activity/Vol]14 U/L7-52[facility] OhioAlbumin [Mass/volume] in Serum or Plasma by Bromocresol green (BCG) dye binding methoOrdered By: Manish Fu on 86-22-3216Bfgvuqv BCG dye [Mass/Vol]3.2 g/dL3.5-5.7FC[facility] Luther[facility] HospitalAlkaline phosphatase [Enzymatic activity/volume] in Serum or PlasmaOrdered By: Manish Fu on 17-99-9080YTF [Catalytic activity/Vol]92 U/G81-226TtnyayxnrSelect Medical Specialty Hospital - Southeast OhioAspartate aminotransferase [Enzymatic activity/volume] in Serum or Plasma Ordered By: Manish Fu on 23-56-6799DPQ [Catalytic activity/Vol]10 U/L 13-39[facility] OhioBilirubin.total [Mass/volume] in Serum or PlasmaOrdered By: Manish Fu on 24-36-3202Aedlwzhii [Mass/Vol]0.6 mg/dL 0.3-1.0[facility] OhioGlobulin Calc (S) [Mass/Vol]Ordered By: Manish Fu on 94-43-6579Sodxhrya (S) [Mass/Vol]2.8 g/dLSelect Medical Specialty Hospital - Southeast OhioProtein [Mass/volume] in Serum or PlasmaOrdered By: Manish Fu on 20-81-4950Rdnauwf [Mass/Vol]6.0 g/dL6.4-8.9[facility] Medical Centererum or plasma albumin/globulin mass ratioOrdered By: Manish Fu on 65-15-6370Rbvdswk/Globulin [Mass ratio]1.1 {ratio} [facility] OhioC Urineon 90-21-8362Uhrimsfh identified Cx Nom (U)NormalFisher Mercy Medical CenterComment on above:Performed By: #### [id number], [id number] ####[facility] [address] [place], [place] [address]Ktordoqst erythrocytes count in urine sediment (number/area)Ordered By: Tera Nevarez on 59-59-6265YJK Auto (Urine sed) [#/Area]Innumerable [HPF]0-4 [facility] OhioAutomated leukocytes count in urine sediment (number/area)Ordered By: Tera Nevarez on 18-80-1759BGX Auto (Urine sed) [#/Area] 50-100 [HPF]0-4FC[facility] Luther[facility] HospitalAutomated urine hyaline casts count (number/volume)Ordered By: Tera Nevarez on 38-88-7298Nlbvkfq casts Auto (U) [#/Vol]0-8 [LPF]0-1FC[facility] Lutheran HospitalBMPon 75-50-4595Fckcu gap [Moles/Vol]18 mmol/LHigh6-16[facility] CenterComment on above: Performed By: #### 3570481, 2465414, 42176233, 37799935, 40942519, 83932715, 7198285 ####[facility] [address] [place], [place] [address]Ymcbdxc [Mass/Vol]8.8 mg/dLLow8.9-11.1FCleveland Clinic Mercy HospitalComment on above:Performed By: #### 6177499, 2488531, 15051679, 51459317, 07270575, 74808765, 3525750 ####[facility] [address] AveNDen[place], [place] [address]Ywmieryj [Moles/Vol]95 mmol/RWav471-460YmurxbSouthwest General Health CenterComment on above:Performed By: #### 6464061, 1661603, 69047468, 97686234, 95471199, 28961345, 0608407 ####[facility] [address]kmwnitswu[address] AveNconnecticut valley hospitalkWOODBURY, [place] [address]IY8 [Moles/Vol]24 mmol/XBbrsde43-58VynsmpSouthwest General Health CenterComment on above:Performed By: #### 8169258, 3571230, 72261868, 57680889, 14310499, 08474086, 2635474 ####[facility] [address]gdtiwm[address] AveNDenver, [place] [address]Jdlrbueguh [Mass/Vol]4.9 mg/dLHigh 0.5-1.3FC[facility] Mercy HospitalComment on above:Performed By: #### 7690658, 6860075, 83435632, 94914802, 80380541, 75158770, 8654214 ####[facility] [address] [place], [place] [address]Grnmsui [Mass/Vol]311 mg/jXJxjx41-633WbdvkySouthwest General Health CenterComment on above:Performed By: #### 0520781, 2739089, 37874988, 96974215, 11516739, 58910452, 0843437 ####[facility] [address] [place] [address]Gqlhxmzoh [Moles/Vol]5.3 mmol/LNormal3.5-5.3FC[facility] Mercy HospitalComment on above: Performed By: #### 2220061, 5346042, 39161850, 09462350, 27248840, 25257911, 8582302 ####[address] [address]Wwppeq [Moles/Vol]132 mmol/EVie156-553YuxphxSouthwest General Health CenterComment on above:Performed By: #### 2268005, 9323574, 22105886, 46366738, 62332218, 98861776, 1102861 ####[address] [address]Wvba nitrogen [Mass/Vol]76 mg/dLHigh5-21[facility] CenterComment on above:Performed By: #### 0360211, 9796835, 86586659, 44284013, 92147544, 13442191, 0473760 ####[address] [address]Orun nitrogen/Creatinine [Mass ratio]16 No Units Fjkbyh51-18NhzvxvSouthwest General Health CenterComment on above:Performed By: #### 1210449, 6948673, 72681061, 01926579, 46995977, 33870299, 3851205 ####[facility] [address] [place] [address] [place] [address]DWIrn 11-11-2023 Natriuretic peptide B (Bld) [Mass/Vol]99 pg/mLHigh5-80[facility] Health CenterComment on above:Performed By: #### 3520320, 1575776, 47082771, 57300037, 97065533, 72550889, 0505928 ####[facility] [address] [place], [place] [address]Lanrfcirl Test strip Ql (U)Ordered By: Tera Nevarez on 43-00-8272Oaleivdda Ql (U)NegativeNegativeSelect Medical Specialty Hospital - Southeast Ohio Blood Gas Art, with Lytes, Gluc, [place] 4a/A Ratio Art26.50 %Normal >=0.80[facility] Health CenterComment on above:Performed By: #### [id number] ####[address] [address]RvOR6 Fit424.8 mmHgHigh5.0-15.0[facility] CenterComment on above:Performed By: #### [id number] ####[address] [address]Pgidbq TestPositiveNormalSouthwest General Health CenterComment on above:Performed By: #### [id number] ####[address] [address]Fpcn Excess Arterial-2.4 mmol/LLow >=2.8[facility] Health CenterComment on above:Performed By: #### [id number] ####[facility] [address] [place], [place] [address]cMp9+ Art4.70 mg/dLNormal4.40-5.30[facility] CenterComment on above: Performed By: #### [id number] ####[facility] [address] [place] [address]fMh- Art97.0 mmol/LUwj459.0-111.0[facility] CenterComment on above:Performed By: #### [id number] ####[address] [address]uWas Ira870 mg/dLHigh 55-99[facility] Health CenterComment on above:Performed By: #### [id number] ####[address] [address]zR+ Art5.5 mmol/LHigh3.5-5.3FC[facility] Mercy HospitalComment on above:Performed By: #### [id number] ####[address] [address]uHiy Art1.0 mmol/LNormal.5-2.2[facility] Comment on above:Performed By: #### [id number] ####[address] [address]tBo+ Wuo398.0 mmol/ROqlbeb116.0-145.0 [facility] CenterComment on above:Performed By: #### [id number] ####[address] [address] DeviceCannulaNormalSouthwest General Health CenterComment on above:Performed By: #### [id number] ####[address] [address]Odciz bystacia schneiteInvalid Interpretation [facility] CampusComment on above:Performed By: #### [id number] ####[address] [address]YXURo Art1.9 % Normal1.5-4.9[facility] CenterComment on above:Result Comment: Reference rangeNonsmoker <1.5%Smoker <5.0%Heavy Smoker <9.0%Performed By: #### [id number] ####[address] [address]YOW4 BY80Iwjrzgf Interpretation [facility] CampusComment on above:Performed By: #### [id number] ####[address] [address]MQciEw Art0.1 %Normal0.0-1.9[facility] CenterComment on above:Performed By: #### [id number] ####[address] [address]QA2Si Art86.9 %Low93.0-100.0 [facility] CenterComment on above:Performed By: #### [id number] ####[address] [address]VWV0 (Bld) [Moles/Vol]22.2 mmol/SXtynll24.0-26.0[facility] CenterComment on above:Performed By: #### [id number] ####[address] [address]Cbouuxzmhw (Bld) [Mass/Vol]12.8 g/dL Stusoj17.0-17.0[facility] CenterComment on above:Performed By: #### [id number] ####[address] [address]Mxfoxm saturation in Blood88.7 %Low95.0-100.0[facility] Comment on above:Performed By: #### [id number] ####[address] [address]J CO2 Ardrmzco81.0 slDsCooj43.0-45.0 [facility] CenterComment on above:Performed By: #### [id number] ####[address] [address]Y O2 Ssduvqit95.8 dfRvSib26.0-100.0[facility] CenterComment on above: Performed By: #### [id number] ####[address] [address]rV Arterial7.828Loy8.350-7.450[facility] CenterComment on above:Performed By: #### [id number] ####[address] [address]Jdybcb SiteR RadialNormal [facility] CenterComment on above:Performed By: #### 130344715 ####[address] [address] Sample TypeArterial DrawNormalFishUniversity of Maryland Rehabilitation & Orthopaedic InstituteComment on above: Performed By: #### [id number] ####[address] [address]HJP w/ Auto Diffon 24-88-3559Lldvvdxbr/100 WBC (Bld)0.5 %Normal0.0-2.0[facility] CenterComment on above:Performed By: #### 0479003, 1471140, 04555335, 48096496, 86671333, 39178128, 3512353 ####[address] [address] Basophils/Leukocytes Auto (Bld) [Pure # fraction]0.0 E9/LNormal0.0-0.2FC[facility] Mercy HospitalComment on above:Performed By: #### 2145797, 4079425, 33767392, 17932907, 53179461, 60011955, 5513012 ####[address] [address]Oeccwiduspm (Bld) [#/Vol]0.2 E9/L Normal0.0-0.5FC[facility] Clinic Mercy HospitalComment on above:Performed By: #### 5709166, 7674136, 01174473, 81834798, 43252373, 12462544, 3719574 ####[address] [address]Ndfnhpjsxqe/100 WBC (Bld)1.9 %Normal0.0-8.0[facility] CenterComment on above:Performed By: #### 2734047, 6483939, 27881874, 02939146, 23052292, 59613338, 8613504 ####[address] [place] [address] Erythrocyte distribution width (RBC) [Ratio]18.6 %High10.9-14.2FC[facility] Mercy HospitalComment on above:Performed By: #### 2237436, 7316012, 47449926, 93185253, 47603848, 27901929, 1190119 ####[address] [place], [place] [address]Jvmdgmchus (Bld) [Volume fraction] 41.9 %Dpnhse44.7-49.0[facility] CenterComment on above:Performed By: #### 0215868, 3109554, 56739634, 02765168, 92255676, 10085741, 7779266 ####[address] [address] Hemoglobin (Bld) [Mass/Vol]12.8 g/dLLow13.5-17.5[facility] Comment on above:Performed By: #### 1776698, 4245906, 43581221, 90197191, 14029371, 64337161, 3385773 ####[address] [address]Gkkpbpjvbxl (Bld) [#/Vol]0.8 E9/LLow1.0-4.0[facility] CenterComment on above:Performed By: #### 8912465, 7258728, 94664823, 16663369, 72228187, 82724425, 0524393 ####[address] [address]Avcignmsnax/100 WBC (Bld)9.1 %Low 14.0-50.0[facility] CenterComment on above:Performed By: #### 3907968, 1484795, 84117145, 68644593, 90967337, 78650738, 8607583 ####[address], [place] [address]XKC (RBC) [Entitic mass]26.4 pgLow27.0-34.0[facility] CenterComment on above:Performed By: #### 9989993, 9879560, 75098609, 09033300, 10597679, 91807538, 3100274 ####[address] [address]THHC (RBC) [Mass/Vol]30.6 g/dLLow31.4-36.0[facility] CenterComment on above:Performed By: #### 2656259, 2591235, 76548191, 55611493, 69931028, 21021521, 6666082 ####[address] [address]RXD (RBC) [Entitic vol]86.3 iQFkeyrj83.0-100.0[facility] CenterComment on above:Performed By: #### 6266065, 9593302, 40693414, 33585371, 03694048, 37054799, 1826698 ####[address] [address]Zowqwdila (Bld) [#/Vol]0.5 E9/LNormal 0.2-1.0[facility] CenterComment on above:Performed By: #### 1738747, 0919223, 51080901, 54779045, 84099219, 15813018, 6768734 ####[address] [address]Gbrqinkyzhr (Bld) [#/Vol]7.0 E9/LNormal2.0-7.5FC[facility] Clinic Mercy HospitalComment on above: Performed By: #### 4023185, 1038494, 70214291, 97186151, 85917173, 61415003, 4034988 ####[address] [address]Libbwzqdayo/100 WBC (Bld)82.2 %High36.0-75.0[facility] Comment on above:Performed By: #### 6415822, 1783536, 03552258, 45364125, 32801915, 28712733, 0715379 ####[facility] [address] [place], [place] [address]Lnqbvhrd842.0 E9/LCcfzmw224.0-500.0[facility] CenterComment on above:Performed By: #### 0150370, 2358713, 69319635, 58294105, 89702917, 37929135, 6541131 ####[facility] [address] [place], [place] [address]Yvguiwir mean volume (Bld) [Entitic vol]6.9 fLNormal6.4-10.8[facility] CenterComment on above:Performed By: #### 1702164, 4335030, 35194221, 15995516, 26834915, 95145603, 9135694 ####[facility] [address] [place] [address]AMQ (Bld) [#/Vol]4.9 E12/LNormal4.3-5.9[facility] CenterComment on above: Performed By: #### 4464096, 5536630, 53279486, 24610970, 81355524, 88022878, 4103977 ####[address] [address]ZHY corrected for nucl RBC Auto (Bld) [#/Vol]8.5 E9/LNormal4.0-11.0[facility] CenterComment on above:Performed By: #### 1048007, 9351060, 44739064, 75805559, 91585792, 18947615, 4695677 ####[facility] [address] [place], [place] [address]UBCCZVLVZIxhqudj By: SYSTEM SYSTEM on 44-37-7549Gtqwhjow04.90 pg/mLLow15.90 - 38.40 pg/mLRemisol ChemComment on above:Interpretive Data: The 95% CI (Confidence Interval) PPV (Positive Predictive Value) for myocardial infarction in females is 38 pg/mL, in males 51 pg/mL. The results should be used in conjunction withclinical conditions of myocardial infarction. (Access High Sensitivity Troponin I Instructions For Use, [employer], March 2018)Rforqrfo62.60 pg/mLLow15.90 - 38.40 pg/mLRemisol ChemComment on above:Interpretive Data: The 95% CI (Confidence Interval) PPV (Positive Predictive Value) for myocardial infarction in females is 38 pg/mL, in males 51 pg/mL. The results should be used in conjunction withclinical conditions of myocardial infarction. (Access High Sensitivity Troponin I Instructions For Use, [employer], March 2018)Anion gap [Moles/Vol]18 mmol/LHigh6 - 16 mEq/LRemisol ChemCalcium [Mass/Vol]8.8 mg/dLLow8.9 - 11.1 mg/dLRemisol ChemChloride [Moles/Vol]95 mmol/L Hxv067 - 111 mmol/LRemisol ChemCO2 [Moles/Vol]24 mmol/WBvkibs17 - 31 mmol/L Remisol ChemCreatinine [Mass/Vol]4.9 mg/dLHigh0.5 - 1.3 mg/dLRemisol BjaprUMR84 mL/min/1.73 m2Low>=59mL/min/1.73 z0Cqcmhqx ChemGlucose [Mass/Vol]311 mg/rBQhsk92 - 199 mg/dLRemisol ChemLactic Acid Lvl1.5 mmol/LNormal0.5 - 2.2 mmol/LRemisol ChemPotassium [Moles/Vol]5.3 mmol/LNormal3.5 - 5.3 mmol/LRemisol ChemSodium [Moles/Vol]132 mmol/SHpt224 - 145 mmol/LRemisol RstsQuqxnekw74.40 pg/mLLow15.90 - 38.40 pg/mLRemisol ChemComment on above:Interpretive Data: The 95% CI (Confidence Interval) PPV (Positive Predictive Value) for myocardial infarction in females is 38 pg/mL, in males 51 pg/mL. The results should be used in conjunction withclinical conditions of myocardial infarction. (Access High Sensitivity Troponin I Instructions For Use, [email or web address], March 2018)Urea nitrogen [Mass/Vol]76 mg/dLHigh5 - 21 mg/dLRemisol ChemUrea nitrogen/Creatinine [Mass ratio]16 mg/drGrdxjl50 - 20Remisol ChemCHEMISTRY Ordered By: Deacon Marcano on 06-08-4548Qhfkubzhdcp peptide B (Bld) [Mass/Vol]99 pg/mLHigh5 - 80 pg/mLIN[facility] HemeManSSCOAGULATIONOrdered By: Hudson Schmidt on 21-88-2855bFZG Coag (PPP) [Time]36.5 cXliluj00.1 - 36.5 second(s)[facility] Auto Coag Comment on above:Interpretive Data: Parameter [...] the same coagulation reagent and instrumentation as [facility]. Currently there are no coagulation studies available worldwide for children to 14 days, andno normal ranges. Heparin therapeutic range (represented by Anti-Factor Xa activity of 0.2 - 0.4 U/mL) corresponds to PTT of 56.6 - 109.0 sec.INR Coag (PPP) [Relative time]0.94 {INR}Invalid Interpretation CodeINTEGRIS MIAM[facility] Auto CoagComment on above:Interpretive Data: INR results are specifically intended to assess patients stabilized on long-term Anticoagulation therapy suggested INR s Less Intensive Anticoagulation 2.0 3.0 Conventional Range 3.0 4.5PT Coag (PPP) [Time]10.5 sNormal9.4 - 12.5 second(s) [facility] Auto CoagComment on above:Interpretive Data: 15 days [...] the same coagulation reagent and instrumentation as [facility]. Currently there are no coagulation studies available worldwide for children to 14 days, andno normal ranges.Casts typing in urine sediment by light microscopyOrdered By: Tera Nevarez on 83-13-4572Jqwhk LM Nom (Urine sed)None seen [LPF]None Seen [facility] OhioColor Auto (U)Ordered By: Tera Nevarez on 53-98-4505Xxklg (U)OrangeYellowSelect Medical Specialty Hospital - Southeast OhioConsent for Treatmenton 61-10-4257Csarcfm for Treatment [id number]#1.00TIFFNoOur Lady of Mercy HospitalCreatine kinase [Enzymatic activity/volume] in Serum or PlasmaOrdered By: Tera Nevarez on 35-27-8477YY [Catalytic activity/Vol]125 U/D51-737AbaepojznSelect Medical Specialty Hospital - Southeast OhioCreatinine [Mass/volume] in UrineOrdered By: Tera Nevarez on 61-20-8246Plnkujprqi (U) [Mass/Vol]266.0 mg/dL14.0-26.0[facility] Clinical Summaryon 56-87-1407IT Clinical SummaryNormPremier Health [facility] Note-Physicianon 85-99-8313GR Note-PhysicianAvita Health System Galion HospitalComment on above:Result Comment: Electronically Signed By: Paddy Betancourt PA-C.br\Date and Time Signed: 11/11/2411:42 EDT\.br\Electronically Co-Signed By: Alejandro Silva M.D..br\Date and Time Co-Signed: 11/11/23 19:21 EDTED Patient Education Noteon 38-04-5071FW Patient Education NoteNormalCleveland Clinic Patient Summaryon 34-68-1519EQ Patient SummaryNoOur Lady of Mercy HospitalEosinophils detection in urine sediment by Jean stainOrdered By: Tera Nevarez on 59-21-9475Gyxofrpzhva Jean stain Ql (Urine sed)1 %0-1FCleveland Clinic Lutheran HospitalFT Blood Gases Ordered By: Korina Hebert on 4a/A Ratio Art26.50 %Normal>=0.80%[facility] Resp Auto SSAaDO2 Lmr781.8 mm[Hg]High5.0 - 15.0 mmHgFTMC Resp Auto SSAllens Test Positive (11/11/23 9:17 AM)NormalFTMC Resp Auto SSBase Excess Arterial-2.4 mmol/LLow >=2.8mmol/LFTMC Resp Auto SScCa2+ Art4.70 mg/dLNormal4.40 - 5.30 mg/dLFTMC Resp Auto SScCl- Art97.0 mmol/XZvx188.0 - 111.0 mmol/LFT[facility] Resp Auto SScGlu Mfg057 mg/dVLfgn50 - 99 mg/dLFTMC Resp Auto SScK+ Art5.5 mmol/LHigh3.5 - 5.3 mmol/LFTMC Resp Auto SScLac Art1.0 mmol/LNormal0.5 - 2.2 mmol/LFTMC Resp Auto SScNa+ Art 135.0 mmol/RNevnan709.0 - 145.0 mmol/LFT[facility] Resp Auto SSDeviceCannula (11/11/23 9:17 AM)NormalFTMC Resp Auto SSDrawn bystacia schneiteInvalid Interpretation CodeFTMC Resp Auto SSFCOHb Art1.9 %Normal1.5 - 4.9 %[facility] Resp Auto SSComment on above:Interpretive Data: Reference range Nonsmoker <1.5% Smoker <5.0% Heavy Smoker <9.0%FIO2 BG40 1Invalid Interpretation CodeFTMC Resp Auto SSFMetHb Art0.1 %Normal0.0 - 1.9 %[facility] Resp Auto BKRW2Ja Art86.9 %Low93.0 - 100.0 %[facility] Resp Auto SSHCO3 (Bld) [Moles/Vol]22.2 mmol/SPdtffq43.0 - 26.0 mmol/LFTMC Resp Auto SSHemoglobin (Bld) [Mass/Vol]12.8 g/aIXcjxha91.0 - 17.0 gm/dLFT Resp Auto SSP CO2 Cjqoebfh74.0 mm[Hg]High35.0 - 45.0 mmHgIN[facility] Resp Auto SSP O2 Arterial 56.8 mm[Hg]Low80.0 - 100.0 mmHgINTEGRIS [facility] Resp Auto SSpH (Bld)7.255 [pH]Low7.350 - 7.450[facility] Resp Auto SSSample SiteR Radial (11/11/23 9:17 AM)NormalINTEGRIS [facility] Resp Auto SSSample TypeArterial Draw (11/11/23 9:17 AM)NormalINTEGRIS [facility] [place] Resp Auto SSHEMATOLOGYOrdered By: SYSTEM SYSTEM on 29-66-3617Brkbrtaqu/100 WBC (Bld)0.5 %Normal0.0 - 2.0 %Remisol Heme Basophils/Leukocytes Auto (Bld) [Pure # fraction]0.0 E9/LNormal0.0 - 0.2 E9/L Remisol HemeEosinophils (Bld) [#/Vol]0.2 E9/LNormal0.0 - 0.5 E9/LRemisol Heme Eosinophils/100 WBC (Bld)1.9 %Normal0.0 - 8.0 %Remisol HemeErythrocyte distribution width (RBC) [Ratio]18.6 %High10.9 - 14.2 %Remisol HemeHematocrit (Bld) [Volume fraction]41.9 %Twlryt34.7 - 49.0 %Remisol HemeHemoglobin (Bld) [Mass/Vol]12.8 g/dLLow13.5 - 17.5 gm/dLRemisol HemeLymphocytes (Bld) [#/Vol]0.8 E9/LLow1.0 - 4.0 E9/LRemisol HemeLymphocytes/100 WBC (Bld)9.1 %Low14.0 - 50.0 % Remisol HemeMCH (RBC) [Entitic mass]26.4 pgLow27.0 - 34.0 pgRemisol HemeMCHC (RBC) [Mass/Vol]30.6 g/dLLow31.4 - 36.0 gm/dLRemisol HemeMCV (RBC) [Entitic vol] 86.3 zHJspozx96.0 - 100.0 fLRemisol HemeMonocytes (Bld) [#/Vol]0.5 E9/LNormal0.2 - 1.0 E9/LRemisol HemeMonocytes/100 WBC (Bld)6.3 %Normal4.0 - 14.0 %Remisol HemeNeutrophils (Bld) [#/Vol]7.0 E9/LNormal2.0 - 7.5 E9/LRemisol Heme Neutrophils/100 WBC (Bld)82.2 %High36.0 - 75.0 %Remisol HblaTerirklc465.0 E9/L Havdqd720.0 - 500.0 E9/LRemisol HemePlatelet mean volume (Bld) [Entitic vol]6.9 fLNormal6.4 - 10.8 fLRemisol HemeRBC (Bld) [#/Vol]4.9 E12/LNormal4.3 - 5.9 E12/L Remisol HemeWBC corrected for nucl RBC Auto (Bld) [#/Vol]8.5 E9/LNormal4.0 - 11.0 E9/LRemisol HemeKetones Auto test strip (U) [Mass/Vol]Ordered By: Tera Nevarez on 79-98-4078Aeyyzbt (U) [Mass/Vol]NegativeNegativeSelect Medical Specialty Hospital - Southeast OhioLactate [Moles/volume] in Serum or PlasmaOrdered By: Tera Nevarez on 12-17-1290Qgnmvrn [Moles/Vol]0.8 mmol/L0.5-2.2FCleveland Clinic Lutheran HospitalLactic Acidon 16-25-9425Tjjgoc Acid Lvl1.5 mmol/LNormal0.5-2.2Fisher Mercy Medical CenterComment on above:Performed By: #### [id number], 2419977, 99563712, 96761922, 93073099, 58675472, 9129820 ####[facility] [address] [place], [place] [address]Gkcsoek Recordon 64-19-5036Fqqvapa [id number]#1.00TIFFNormalFisher Mercy Medical CenterMonitor [id number]#1.00TIFF NormalCommunity Healther Mercy Medical CenterNatriuretic peptide B [Mass/Vol]Ordered By: Tera eNvarez on 90-70-0292Csvnopaugbb peptide B (Bld) [Mass/Vol]115.0 pg/mL5-100 [facility] Southeast OhioNitrite Test strip Ql (U)Ordered By: Tera Nevarez on 90-37-6348Sjxbnfu Ql (U)NegativeNegativeSelect Medical Specialty Hospital - Southeast OhioNo Panel InformationOrdered By: Tera Nevarez on 99-64-9332Pmntt Gas Liter Flow5 L/minSelect Medical Specialty Hospital - Southeast OhioPT & PTTon 71-63-8417dABV Coag (PPP) [Time]36.5 second(s)Otqgan81.1-36.5Fisher Mercy Medical CenterComment on above: Result Comment: Parameter 15 days [...] samples obtained at 7 different centers using theREH coagulation reagent and instrumentation as [facility]. Currently there are no coagulation studies available worldwide for children to 14 days, and no normal ranges. Heparin therapeutic range (represented by Anti-Factor Xa activity of 0.2 - 0.4 U/mL) corresponds to PTT of 56.6 - 109.0 sec.Performed By: #### 5114266, 6884114, 45846729, 27894056, 23029378, 05511003, 2989377 ####[facility] [address] [place], [place] [address]DGE Coag (PPP) [Relative time]0.94 {INR}Invalid Interpretation [facility] Comment on above:Result Comment: INR results are specifically intended to assess patients stabilized on long-term Anticoagulation therapy suggested INR?s ?Less Intensive Anticoagulation? 2.0 ? 3.0Conventional Range 3.0 ? 4.5Performed By: #### 2957598, 7766827, 01307587, 53416326, 16067271, 35315393, 7427631 ####[facility] [address] [place], [place] [address]WU Coag (PPP) [Time]10.5 second(s)Normal9.4-12.5FCleveland Clinic Mercy HospitalComment on above:Result Comment: 15 days - [...] the same coagulation reagent and instrumentation as [facility]. Currently there are no coagulation studies available worldwide for children to 14 days, and no normal ranges.Performed By: #### 4651353, 9162033, 81654815, 23773676, 42525429, 93264466, 4110977 ####[facility] [address] [place], [place] [address]Fshtyoxmh [Moles/volume] in UrineOrdered By: Tera Nevarez on 87-36-9658Eiezzpnqr (U) [Moles/Vol]29.7 mmol/LFCleveland Clinic Lutheran Hospital Comment on above:No reference range establishedPre-Arrival Noteon 19-59-8201Vqd- Arrival NoteNormalSouthwest General Health CenterProtein Auto test strip (U) [Mass/Vol]Ordered By: Tera Nevarez on 89-24-8995Jogqznh (U) [Mass/Vol]100 mg/dL NegativeSelect Medical Specialty Hospital - Southeast OhioProtein [Mass/volume] in UrineOrdered By: Tera Nevarez on 94-49-4305Idvqwjc (U) [Mass/Vol]105 mg/dL0-9W[facility]-Patterson Medical Centerodium [Moles/volume] in UrineOrdered By: Tera Nevarez on 56-68-5747Srczop (U) [Moles/Vol]18 mmol/LFCleveland Clinic Lutheran Hospital Comment on above:No reference range establishedSpecific gravity Auto test strip (U) [Rel density]Ordered By: Tera Nevarez on 22-62-3071Dkgvyrii gravity (U) [Rel density]1.0171.001-1.030W[facility]-Patterson Medical Centerquamous epithelial cells detection in urine sediment by light microscopyOrdered By: Tera Nevarez on 24-04-2955Aqqekgnkgl cells.squamous LM Ql (Urine sed)0-1 [HPF]0-2FCleveland Clinic Lutheran HospitalTransfer Documentson 07-47-7044Q[place] Documents [id number]#1.00TIFFNormalSouthwest General Health CenterTroponin 0 Hr.on 55-28-4564Aybtxirn18.40 pg/mLLow15.90-38.40[facility] Health CenterComment on above:Result Comment: The 95% CI (Confidence Interval) PPV (Positive Predictive Value) for myocardial infarction in females is 38 pg/mL, in males 51 pg/mL. The results should be used in conjunction with cli nical conditions of myocardial infarction.(Access High Sensitivity Troponin I Instructions For Use,[place], March 2018)Performed By: #### 4865881, 9779772, 73852721, 13991745, 85012987, 34921530, 3080145 ####[facility] [address] [place], [place] [address]Sywvcwri 3 Hr.on 15-12-3214Nmpfgjzb14.60 pg/mLLow15.90-38.40[facility] Health CenterComment on above:Result Comment: The 95% CI (Confidence Interval) PPV (Positive Predictive Value) for myocardial infarction in females is 38 pg/mL, in males 51 pg/mL. The results should be used in conjunction with clinical conditions of myocardial infarction.(Access High Sensitivity Troponin I Instructions For Use,[employer], March 2018)Performed By: #### [id number] ####[facility] [address] [place], [place] [address]Eywiuete 6 Hr.on 29-12-3683Zyfqrqsq 12.90 pg/mLLow15.90-38.40[facility] Health CenterComment on above:Result Comment: The 95% CI (Confidence Interval) PPV (Positive Predictive Value) for myocardial infarction in females is 38 pg/mL, in males 51 pg/mL. The results should be used in conjunction with clinical conditions of myocardial infarction.(Access High Sensitivity Troponin I Instructions For Use,[employer], March 2018)Performed By: #### [id number] ####[facility] [address] [place], [place] [address]Isbewfzp I.cardiac [Mass/volume] in Serum or Plasma by Detection limit <= 0.01 ng/Ordered By: Tera Nevarez on 29-32-7443Sufernjr I.cardiac DL <= 0.01 ng/mL [Mass/Vol]12.3 pg/mL0.0-20.0 [facility] OhioUA with Cult Rflxon 18-10-1844Xcutgzkvf Ql (U) 1+AbnormalNegativeSouthwest General Health CenterComment on above:Performed By: #### 9275153, [id number] ####[facility] [address] [place], [place] [address]Nextfvt (U)TURBIDAbnormalClearFisher Mercy Medical Center Comment on above:Performed By: #### 1545943, [id number] ####[facility] [address] [place], [place] [address]Esalz (U)BROWNInvalid Interpretation CodeSouthwest General Health CenterComment on above:Performed By: #### 6635902, [id number] ####[address] [address]Rjqyvkl Test strip (U) [Mass/Vol]NegativeNormalNegative [facility] CenterComment on above:Performed By: #### 9873372, [id number] ####[address] [address]Fuhknozxus Ql (U)3+AbnormalNegativeSouthwest General Health CenterComment on above:Performed By: #### 8314396, [id number] ####[address] [address]Pqrnmmy (U) [Mass/Vol]TRACEInvalid Interpretation CodeNegativeSouthwest General Health CenterComment on above:Performed By: #### 0160091, [id number] ####[address] [address]Ybpizpp Ql (U)PositiveAbnormalNegativeSouthwest General Health CenterComment on above:Performed By: #### 9013725, [id number] ####[address] [address]rJ (U)5.5 [pH] Invalid Interpretation Code5.0-9.0South[facility] General Health CenterComment on above: Performed By: #### 0597423, [id number] ####[address] [address]Gpshajk (U) [Mass/Vol]2+Abnormal NegativeSouthwest General Health CenterComment on above:Performed By: #### 0996228, [id number] ####[address] [address]Zvibdbcc gravity (U) [Rel density]>=1.030Invalid Interpretation Code 1.005-1.030South[facility] General Health CenterComment on above:Performed By: #### 0574295, [id number] ####[address] [address]PQ Bacteria2+ CD:[id number] [facility] Medical CenterComment on above:Performed By: #### 6035418, 2234000148 ####[address] [place], [place] [address]TX MucousTraceNormal NegativeSouthwest General Health CenterComment on above:Performed By: #### 8486177, [id number] ####[address] [address]NH RBC>64Ztczxltg1-5LospcoCleveland Clinic Mercy HospitalComment on above:Performed By: #### 3464944, [id number] ####[address] [address]AM Squam Kiqwfowocw5-6Gyocfm0-0Qrdjiu Mercy Medical CenterComment on above:Performed By: #### 1020289, [id number] ####[address] [address]JU VHI00-67Dihbuntz6-0 [facility] Health CenterComment on above:Performed By: #### 3855103, [id number] ####[address] [address]Vcsxmbyxbcxr Qn (U)0.4Cpnimb9.0-1.0South[facility] General Health CenterComment on above:Performed By: #### 0197839, [id number] ####[address] [address]HQH Auto Ql (U)1+AbnormalNegative [facility] Health CenterComment on above:Performed By: #### 2190421, [id number] ####[address] [address]KW Spec DescClean CatchNormalSouthwest General Health CenterComment on above: Performed By: #### 5669891, [id number] ####[address] [address]IMLUDPXATZSvngaha By: Hudson Schmidt on 85-14-0591Xuujokhxt Ql (U)1+ *ABN* (11/11/23 9:14 AM)Invalid Interpretation [...] Squam Epithelial0-2 graded/HPF Normal0-2graded/HPFFTMC UA Auto SSUA RKZ24-58 *ABN* (11/11/23 9:14 AM)Invalid Interpretation Code0-5FT[facility] UA Auto SSUrobilinogen Qn (U)0.2 (11/11/23 9:14 AM)Normal0.0 - 1.0[facility] UA Auto SSWBC Auto Ql (U)1+ *ABN* (11/11/23 9:14 AM)Invalid Interpretation CodeNegativeFTMC UA Auto SSURINALYSIS Ordered By: Paddy Betancourt on 03-43-7422TD Spec DescClean Catch (11/11/23 9:14 AM)NormalIN[facility] UA Auto SS Urine bacteria detection by automated methodOrdered By: Tera Nevarez on 67-38-1678Zcrpjauw Auto Ql (U)None seenNone [facility] CampusUrine clarity by refractometry automatedOrdered By: Tera Nevarez on 77-82-2665Ferntcq Refractometry automated (U)TurbidCleCentervilleUrine culture routineOrdered By: Tera Nevarez on 74-76-1944Pfevbfbv identified Cx Nom (U)Kaelyn albicansSelect Medical Specialty Hospital - Southeast OhioUrine glucose measurement by automated test strip (mass/volume) Ordered By: Tera Nevarez on 06-64-8314Nslxqsi Auto test strip (U) [Mass/Vol] Normal mg/dLCleveland Clinic Akron GeneralUrine hemoglobin detection by automated test stripOrdered By: Tera Nevarez on 97-93-5487Pevajnzbyk Auto test strip Ql (U)3+NegativeSelect Medical Specialty Hospital - Southeast OhioUrine leukocyte esterase detection by automated test stripOrdered By: Tera Nevarez on 45-86-3333Jajjxydiq esterase Auto test strip Ql (U)3+[facility] Urobilinogen Auto test strip (U) [Mass/Vol]Ordered By: Tera Nevarez on 87-36-7842Ezpynntgngpv (U) [Mass/Vol]Normal mg/dLNoSt. Vincent HospitalXR Chest Single Viewon 24-22-3073ML Chest Single ViewNoOur Lady of Mercy HospitalYeast detection in urine sediment by light microscopyOrdered By: Tera Nevarez on 90-34-4341Exerc LM Ql (Urine sed)Hyphae present [HPF]None [facility] CampusComment on above:2+eGFRon 00-47-0227lNUC37 mL/min/1.73 m2Low>=59South[facility] General Health CenterComment on above:Order Comment: Order added by Discern Expert.Performed By: #### 9453271, 3389405, 35925538, 07109295, 62712808, 18076015, 7786053 ####[facility] [address] [place], [place] [address]fA Auto test strip (U)Ordered By: Tera Nevarez on 01-20-6605qA (U)5.0 [pH]5.0-9.0[facility] Ambulatory Visit Summaryon 20-64-2811Zcvrjxrfng Visit SummaryNormalSouthwest General Health CenterCNPNon 14-71-1374NEUXVahhmwyqf (PODCCP) NICOLE LORA ([id number]) 1960 M Date Time Provider Department 10/31/23 MOUNIKA BROOKE PODCCP During your visit today, we recorded the following information about you: Allergies As of Date: 10/31/2023 Noted Allergy Reaction PENICILLINS 12/01/2014 2 - Rash Date Reviewed: 10/25/2023 Reviewed by: Matt Kingston RN - Fully Assessed Reason for Visit: Follow Up Phone Call [[phone]] Cmt: Post Discharge F/U - attempt made. [...] Encounter Status:Closed by KIKO DEL VALLE on 10/31/23[facility] for Treatmenton 20-78-9150Wsvetug for Treatment [id number]#1.00TIFChildren's Hospital of ColumbusDischarge Instructionson 87-90-3668Vbbfaczgr Instructions [id number]#1.00TIFFParkview Health Bryan Hospital CenterED Clinical Summaryon 35-38-9892YS Clinical SummaryNormSanta Clara Valley Medical Center Medical CenterED Note-Physicianon 78-40-1719MY Note-PhysicianNoOur Lady of Mercy HospitalComment on above:Result Comment: Electronically Signed By: Staci Beck DO\Date and Time Signed: 10/30/23 05:22 EDTED Patient Education Noteon 23-37-5140KA Patient Education NoteNoK[facility] Patient Summaryon 01-06-0958GL Patient SummaryNoOur Lady of Mercy Hospital CBC W Auto Differential panel (Bld)on 01-72-9129Kpobqxhef (Bld) [#/Vol]0.04 10*3/uLNormal<0.11Fapaul a. dever state school HospitalComment on above:Order Comment: Specimen Type: BLOOD SPECIMEN [facility]ing Facility: [facility] Address: [address] [place], [place] [address]Performed By: #### 95090-6, 89374-9 #### [facility] CLIA [id number] [address] [place] [address] [place] AMERICABasophils/100 WBC (Bld)0.7 %Normal [facility] State HospitalComment on above:Order Comment: Specimen Type: BLOOD SPECIMEN Ordering Facility: [facility] Address: [address] [place], [place] [address]Performed By: #### 37347-8, 00775-6 #### [facility] CLIA [id number] [address] [place] [address] [place] AMERICADifferential cell count method Nom (Bld)AutoNormalFapaul a. dever state school HospitalComment on above:Order Comment: Specimen Type: BLOOD SPECIMEN Ordering Facility: [facility] Address: [address] [place], [place] [address]Performed By: #### 49915-7, 65051-3 #### [facility] CLIA [id number] [address] [place] [address] [place] AMERICAEosinophils (Bld) [#/Vol]0.32 10*3/uLNormal<0.46Fapaul a. dever state school HospitalComment on above:Order Comment: Specimen Type: BLOOD SPECIMEN Ordering Facility: [facility] Address: [address] [place], [place] [address]Performed By: #### 80651-9, 94655-5 #### [facility] CLIA [id number] [address] [place] [address] [place] AMERICAEosinophils/100 WBC (Bld)5.4 %Normal [facility] HospitalComment on above:Order Comment: Specimen Type: BLOOD SPECIMEN Ordering Facility: [facility] Address: [address] [place], [place] [address]Performed By: #### 99837-8, 88233-8 #### [facility] CLIA [id number] [address] [place] [address] [place] AMERICAErythrocyte distribution width (RBC) [Ratio]16.1 %High11.5-15.0Fapaul a. dever state school HospitalComment on above:Order Comment: Specimen Type: BLOOD SPECIMEN Ordering Facility: [facility] Address: [address] [place], [place] [address]Performed By: #### 37994-4, 43527-5 #### [facility] CLIA [id number] [address] [place] [address] [place] AMERICAHematocrit (Bld) [Volume fraction] 41.3 %Fbrhlb78.0-51.0Fapaul a. dever state school HospitalComment on above:Order Comment: Specimen Type: BLOOD SPECIMEN Ordering Facility: [facility] Address: [address] [place], [place] [address]Performed By: #### 98183-7, 12499-1 #### [facility] CLIA [id number] [address] [place] [address] [place] AMERICAHemoglobin (Bld) [Mass/Vol]12.3 g/dL Low13.0-17.0Fapaul a. dever state school HospitalComment on above:Order Comment: Specimen Type: BLOOD SPECIMEN Ordering Facility: [facility] Address: [address] [place], [place] [address]Performed By: #### 17731-7, 96762-3 #### [facility] CLIA [id number] [address] [place] [address] [place] AMERICAImmature granulocytes (Bld) [#/Vol] 10*3/uLNormal<0.10Fapaul a. dever state school HospitalComment on above:Order Comment: Specimen Type: BLOOD SPECIMEN Ordering Facility: [facility] Address: [address] [place], [place] [address]Performed By: #### 00134-0, 96825-2 #### [facility] CLIA [id number] [address] [place] [address] [place] AMERICAImmature granulocytes/100 WBC (Bld) 0.3 %NormalLong Bottom HospitalComment on above:Order Comment: Specimen Type: BLOOD SPECIMEN Ordering Facility: [facility] Address: [address] [place], [place] [address]Performed By: #### 88362-8, 39051-6 #### [facility] CLIA [id number] [address] [place] [address] [place] AMERICALymphocytes (Bld) [#/Vol]1.01 10*3/uLNormal1.00-4.00[facility] HospitalComment on above:Order Comment: Specimen Type: BLOOD SPECIMEN Ordering Facility: [facility] Address: [address] [place], [place] [address]Performed By: #### 94794-8, 32952-1 #### [facility] CLIA [id number] [address] [place] [address] [place] AMERICALymphocytes/100 WBC (Bld)17.0 % NormalLong Bottom HospitalComment on above:Order Comment: Specimen Type: BLOOD SPECIMEN Ordering Facility: [facility] Address: [address] [place], [place] [address]Performed By: #### 62590-5, 89989-8 #### [facility] CLIA [id number] [address] [place] [address] [place] AMERICAMCH (RBC) [Entitic mass]26.6 pg Izxzfs04.0-34.0[facility] HospitalComment on above:Order Comment: Specimen Type: BLOOD SPECIMEN Ordering Facility: [facility] Address: [address] [place], [place] [address]Performed By: #### 03482-4, 97214-6 #### [facility] CLIA [id number] [address] [place] [address] [place] [facility] [place] ([place]) [Mass/Vol]29.8 g/dLLow 30.5-36.0[facility] HospitalComment on above:Order Comment: Specimen Type: BLOOD SPECIMEN Ordering Facility: [facility] Address: [address] [place], [place] [address]Performed By: #### 12885-4, 80748-1 #### [facility] CLIA [id number] [address] [place] [address] [facility] ([facility]) [Entitic vol]89.4 fLNormal 80.0-100.0[facility] HospitalComment on above:Order Comment: Specimen Type: BLOOD SPECIMEN Ordering Facility: [facility] Address: [address] [place], [place] [address]Performed By: #### 25672-7, 99697-7 #### [facility] CLIA [id number] [address] [place] [address] [place] AMERICAMonocytes (Bld) [#/Vol]0.67 10*3/uL Normal<0.87[facility] HospitalComment on above:Order Comment: Specimen Type: BLOOD SPECIMEN Ordering Facility: [facility] Address: [address] [place], [place] [address]Performed By: #### 60111-7, 99500-4 #### [facility] CLIA [id number] [address] [place] [address] [place] AMERICAMonocytes/100 WBC (Bld)11.3 %Normal [facility] HospitalComment on above:Order Comment: Specimen Type: BLOOD SPECIMEN Ordering Facility: [facility] Address: [address] [place], [place] [address]Performed By: #### 37402-1, 62162-1 #### [facility] CLIA [id number] [address] [place] [address] [place] AMERICANeutrophils (Bld) [#/Vol]3.88 10*3/uLNormal1.45-7.50[facility] HospitalComment on above:Order Comment: Specimen Type: BLOOD SPECIMEN Ordering Facility: [facility] Address: [address] [place], [place] [address]Performed By: #### 69686-3, 58250-9 #### [facility] CLIA [id number] [address] [place] [address] [place] AMERICANeutrophils/100 WBC (Bld)65.3 % NormalLong Bottom HospitalComment on above:Order Comment: Specimen Type: BLOOD SPECIMEN Ordering Facility: [facility] Address: [address] [place], [place] [address]Performed By: #### 04034-5, 29209-7 #### [facility] CLIA [id number] [address] [place] [address] [place] AMERICANucleated RBC (Bld) [#/Vol]10*3/uL Normal<0.01[facility] HospitalComment on above:Order Comment: Specimen Type: BLOOD SPECIMEN Ordering Facility: [facility] Address: [address] [place], [place] [address]Performed By: #### 68314-1, 00247-8 #### [facility] CLIA [id number] [address] [place] [address] [place] AMERICANucleated RBC/100 WBC (Bld) [Ratio] 0.0 /100 WBCNormalLong Bottom HospitalComuniversity of [facility] on above:Order Comment: Specimen Type: BLOOD SPECIMEN Ordering Facility: [facility] Address: [address] [place], [place] [address]Performed By: #### 73553-2, 53254-4 #### [facility] CLIA [id number] [address] [place] [address] [place] AMERICAPlatelet mean volume (Bld) [Entitic vol]8.9 fLLow9.0-12.7[facility] HospitalComment on above:Order Comment: Specimen Type: BLOOD SPECIMEN Ordering Facility: [facility] Address: [address] [place], [place] [address]Performed By: #### 62370-4, 75765-7 #### [facility] CLIA [id number] [address] [place] [address] [place] AMERICAPlatelets (Bld) [#/Vol]250 10*3/uL Mojimv747-330Ctgetxlx HospitalComment on above:Order Comment: Specimen Type: BLOOD SPECIMEN Ordering Facility: [facility] Address: [address] [place], [place] [address]Performed By: #### 84586-5, 91402-1 #### [facility] CLIA [id number] [address] [place], [place] [address] [facility] (Bld) [#/Vol]4.62 10*6/uLNormal 4.20-6.00[facility] HospitalComment on above:Order Comment: Specimen Type: BLOOD SPECIMEN Ordering Facility: [facility] Address: [address] [place], [place] [address]Performed By: #### 56020-0, 88238-1 #### [facility] CLIA [id number] [address] [place] [address] (d) [#/Vol]5.94 10*3/uLNormal 3.70-11.00[facility] HospitalComment on above:Order Comment: Specimen Type: BLOOD SPECIMEN Ordering Facility: [facility] Address: [address] [place], [place] [address]Performed By: #### 46506-7, 79377-1 #### [facility] CLIA [id number] [address] [place], [place] [address] [id number] ID: [id number] Author: TYA STEWART MD Service: General Internal Medicine Author [...] Follow Up Appointments Follow-Up Appointment Office number: [phone] When: In 1 week Patient/Parents to call for appointment?: Yes Tay Stewart MD [phone] [place] [address] PCP Requested Referral Follow-Up Appointment With: your Primary Care Doctor When: In 1 week Patient/Parents to call for appointment?: Yes Additional Provider to Provider Information: This is a 63 year old male with a PMHx of CKD 3b, chronic respiratory failure, morbid obesity, insulin dependent diabetes, left 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 The patient states he's [...] 77, no ischemic (more content not included)... Normal[facility]. [facility] HospitalMagnesium SerPl-mCncon 98-25-0760Uvdqkffrs [Mass/Vol]2.0 mg/dLNormal1.7-2.3Fsaint vincent hospital HospitalComment on above:Order Comment: Specimen Type: BLOOD SPECIMEN Ordering Facility: [facility] Address: [address] [place] [place], [place] [address]Performed By: #### 86331-6, 39153-7 #### [facility] CLIA [id number] [address] [place] [address] [place] AMERICARenal function 2000 panelon 77-28-1963Msxgydb [Mass/Vol]3.3 g/dLLow3.9-4.9[facility] HospitalComment on above: Order Comment: Specimen Type: BLOOD SPECIMEN Ordering Facility: [facility] Address: [address] [place], [place] [address]Performed By: #### 04572-9, 69637-5 #### [facility] CLIA [id number] [address] [place] [address] [place] AMERICAAnion gap [Moles/Vol]8 mmol/LLow9-18 [facility] HospitalComment on above:Order Comment: Specimen Type: BLOOD SPECIMEN Ordering Facility: [facility] Address: [address] [place], [place] [address]Performed By: #### 02156-4, 47193-0 #### [facility] CLIA [id number] [address] [place] [address] [place] AMERICACalcium [Mass/Vol]9.1 mg/dLNormal 8.5-10.2Fsaint vincent hospital HospitalComment on above:Order Comment: Specimen Type: BLOOD SPECIMEN Ordering Facility: [facility] Address: [address] [place], [place] [address]Performed By: #### 54525-8, 00567-7 #### [facility] CLIA [id number] [address] [place] [address] [place] AMERICAChloride [Moles/Vol]97 mmol/LNormal 97-105FaNew England Rehabilitation Hospital at LowellComment on above:Order Comment: Specimen Type: BLOOD SPECIMEN Ordering Facility: [facility] Address: [address] [place], [place] [address]Performed By: #### 63478-2, 02498-8 #### [facility] CLIA [id number] [address] [place] [address] [place] AMERICACO2 [Moles/Vol]35 mmol/AMnjm07-57 [facility] HospitalComment on above:Order Comment: Specimen Type: BLOOD SPECIMEN Ordering Facility: [facility] Address: [address] [place], [place] [address]Performed By: #### 86494-3, 01557-4 #### [facility] CLIA [id number] [place] [address] [place] AMERICACreatinine [Mass/Vol]1.72 mg/dLHigh 0.73-1.22[facility] on above:Order Comment: Specimen Type: BLOOD SPECIMEN Ordering Facility: [facility] Address: [address] [place], [place] [address]Performed By: #### 03887-9, 78463-4 #### [facility] CLIA [id number] [address] [place] [address] [place] AMERICACreatinine and Glomerular filtration rate.predicted panel (S/P/Bld)44 mL/min/1.73m???Low>=60FaCommunity [facility] on above:Order Comment: Specimen Type: BLOOD SPECIMEN Ordering Facility: [facility] Address: [address] [place], [place] [address]Result Comment: Estimated Glomerular Filtration Rate (eGFR) is [...] not accurately reflect actual GFR.Performed By: #### 95755-7, 02794-1 #### [facility] CLIA [id number] [address] [place] [address] [place] AMERICAGlucose [Mass/Vol]152 mg/rQRnll38-01 [facility] on above:Order Comment: Specimen Type: BLOOD SPECIMEN Ordering Facility: [facility] Address: [address] [place], [place] [address]Result Comment: The [place] Diabetes Association (ADA) provides guidance for cutoff [...] Standards of Medical Care in Diabetes 2016, [place] [employer]. Diabetes Care. 2016.39(Suppl 1).Performed By: #### 60018-0, 94416-4 #### [facility] CLIA [id number] [address] [place] [address] [place] AMERICAPhosphate [Mass/Vol]4.6 mg/dLNormal 2.7-4.8[facility] HospitalComment on above:Order Comment: Specimen Type: BLOOD SPECIMEN Ordering Facility: [facility] Address: [address] [place], [place] [address]Performed By: #### 81751-5, 14478-6 #### [facility] CLIA [id number] [address] [place] [address] [place] AMERICAPotassium [Moles/Vol]4.0 mmol/L Normal3.7-5.1Fsaint [facility]cent hospital HospitalComment on above:Order Comment: Specimen Type: BLOOD SPECIMEN Ordering Facility: [facility] Address: [address] [place], [place] [address]Performed By: #### 41483-9, 77162-4 #### [facility] CLIA [id number] [address] [place] [address] [place] AMERICASodium [Moles/Vol]140 mmol/LNormal 136-144[facility] HospitalComment on above:Order Comment: Specimen Type: BLOOD SPECIMEN Ordering Facility: [facility] Address: [address] [place], [place] [address]Performed By: #### 48212-8, 60162-9 #### [facility] CLIA [id number] [address] [place] [address] [place] AMERICAUrea nitrogen [Mass/Vol]39 mg/dLHigh 9-24[facility] HospitalComment on above:Order Comment: Specimen Type: BLOOD SPECIMEN Ordering Facility: [facility] Address: [address] [place], [place] [address]Performed By: #### 65737-8, 29094-2 #### [facility] CLIA [id number] [address] [place] [address] [place] AMERICACB W Auto Differential panel (Bld) on 18-88-3573Ijcemwptg (Bld) [#/Vol]10*3/uLNormal<0.11[facility] HospitalComment on above:Order Comment: Specimen Type: BLOOD SPECIMEN Ordering Facility: [facility] Address: [address] [place], [place] [address]Performed By: #### 51506-4, 45097-6 #### [facility] CLIA [id number] [address] [place] [address] [place] AMERICABasophils/100 WBC (Bld)0.3 %Normal [facility] HospitalComment on above:Order Comment: Specimen Type: BLOOD SPECIMEN Ordering Facility: [facility] Address: [address] [place], [place] [address]Performed By: #### 47132-0, 97229-1 #### [facility] CLIA [id number] [address] [place] [address] [place] AMERICADifferential cell count method Nom (Bld)AutoNormalFapaul a. dever state school HospitalComment on above:Order Comment: Specimen Type: BLOOD SPECIMEN Ordering Facility: [facility] Address: [address] [place], [place] [address]Performed By: #### 53597-1, 85756-8 #### [facility] CLIA [id number] [address] [place] [address] [place] AMERICAEosinophils (Bld) [#/Vol]0.26 10*3/uLNormal<0.46[facility] HospitalComment on above:Order Comment: Specimen Type: BLOOD SPECIMEN Ordering Facility: [facility] Address: [address] [place], [place] [address]Performed By: #### 21815-9, 88972-8 #### [facility] CLIA [id number] [address] [place] [address] [place] AMERICAEosinophils/100 WBC (Bld)4.4 %Normal [facility] HospitalComment on above:Order Comment: Specimen Type: BLOOD SPECIMEN Ordering Facility: [facility] Address: [address] [place], [place] [address]Performed By: #### 66638-9, 13309-4 #### [facility] CLIA [id number] [address] [place] [address] [place] AMERICAErythrocyte distribution width (RBC) [Ratio]16.0 %High11.5-15.0[facility] HospitalComment on above:Order Comment: Specimen Type: BLOOD SPECIMEN Ordering Facility: [facility] Address: [address] [place], [place] [address]Performed By: #### 38520-9, 34231-4 #### [facility] CLIA [id number] [address] [place] [address] [place] AMERICAHematocrit (Bld) [Volume fraction] 39.9 %Ogczzm49.0-51.0[facility] HospitalComment on above:Order Comment: Specimen Type: BLOOD SPECIMEN Ordering Facility: [facility] Address: [address] [place], [place] [address]Performed By: #### 85375-0, 46722-7 #### [facility] CLIA [id number] [address] [place] [address] [place] AMERICAHemoglobin (Bld) [Mass/Vol]12.0 g/dL Low13.0-17.0[facility] HospitalComment on above:Order Comment: Specimen Type: BLOOD SPECIMEN Ordering Facility: [facility] Address: [address] [place], [place] [address]Performed By: #### 21003-2, 55997-5 #### [facility] CLIA [id number] [address] [place] [address] [place] AMERICAImmature granulocytes (Bld) [#/Vol] 10*3/uLNormal<0.10[facility] HospitalComment on above:Order Comment: Specimen Type: BLOOD SPECIMEN Ordering Facility: [facility] Address: [address] [place], [place] [address]Performed By: #### 10214-2, 39005-9 #### [facility] CLIA [id number] [address] [place] [address] [place] AMERICAImmature granulocytes/100 WBC (Bld) 0.3 %NormalLong Bottom HospitalComment on above:Order Comment: Specimen Type: BLOOD SPECIMEN Ordering Facility: [facility] Address: [address] [place], [place] [address]Performed By: #### 53343-1, 35963-5 #### [facility] CLIA [id number] [address] [place] [address] [place] AMERICALymphocytes (Bld) [#/Vol]0.96 10*3/uLLow1.00-4.00[facility] HospitalComment on above:Order Comment: Specimen Type: BLOOD SPECIMEN Ordering Facility: [facility] Address: [address] [place], [place] [address]Performed By: #### 97383-9, 05520-7 #### [facility] CLIA [id number] [address] [place] [address] [place] AMERICALymphocytes/100 WBC (Bld)16.4 % NormalLong Bottom HospitalComment on above:Order Comment: Specimen Type: BLOOD SPECIMEN Ordering Facility: [facility] Address: [address] [place], [place] [address]Performed By: #### 11744-1, 96973-9 #### [facility] CLIA [id number] [address] [place] [address] (RBC) [Entitic mass]26.7 pg Gqmuht23.0-34.0[facility] HospitalComment on above:Order Comment: Specimen Type: BLOOD SPECIMEN Ordering Facility: [facility] Address: [address] [place], [place] [address]Performed By: #### 68080-2, 49195-8 #### [facility] CLIA [id number] [address] [place] [address] (RBC) [Mass/Vol]30.1 g/dLLow 30.5-36.0[facility] HospitalComment on above:Order Comment: Specimen Type: BLOOD SPECIMEN Ordering Facility: [facility] Address: [address] [place], [place] [address]Performed By: #### 76956-3, 60750-7 #### [facility] CLIA [id number] [address] [place] [address] [place] AMERICAMCV (RBC) [Entitic vol]88.9 fLNormal 80.0-100.0[facility] HospitalComment on above:Order Comment: Specimen Type: BLOOD SPECIMEN Ordering Facility: [facility] Address: [address] [place], [place] [address]Performed By: #### 63898-6, 23932-5 #### [facility] CLIA [id number] [address] [place] [address] [place] AMERICAMonocytes (Bld) [#/Vol]0.70 10*3/uL Normal<0.87[facility] HospitalComment on above:Order Comment: Specimen Type: BLOOD SPECIMEN Ordering Facility: [facility] Address: [address] [place], [place] [address]Performed By: #### 64230-2, 51493-3 #### [facility] CLIA [id number] [address] [place] [address] [place] AMERICAMonocytes/100 WBC (Bld)11.9 %Normal [facility] HospitalComment on above:Order Comment: Specimen Type: BLOOD SPECIMEN Ordering Facility: [facility] Address: [address] [place], [place] [address]Performed By: #### 02366-2, 73775-4 #### [facility] CLIA [id number] [address] [place] [address] [place]ICANeutrophils (Bld) [#/Vol]3.91 10*3/uLNormal1.45-7.50[facility] HospitalComment on above:Order Comment: Specimen Type: BLOOD SPECIMEN Ordering Facility: [facility] Address: [address] [place], [place] [address]Performed By: #### 86987-1, 27415-6 #### [facility] CLIA [id number] [address] [place] [address] [place]ICANeutrophils/100 WBC (Bld)66.7 % NormalLong Bottom HospitalComment on above:Order Comment: Specimen Type: BLOOD SPECIMEN Ordering Facility: [facility] Address: [address] [place], [place] [address]Performed By: #### 03380-8, 81267-8 #### [facility] CLIA [id number] [address] [place] [address] [place] AMERICANucleated RBC (Bld) [#/Vol]10*3/uL Normal<0.01[facility] HospitalComment on above:Order Comment: Specimen Type: BLOOD SPECIMEN Ordering Facility: [facility] Address: [address] [place], [place] [address]Performed By: #### 65974-5, 23432-5 #### [facility] CLIA [id number] [address] [place] [address] [place]ICANucleated RBC/100 WBC (Bld) [Ratio] 0.0 /100 WBCNormalLong Bottom HospitalComment on above:Order Comment: Specimen Type: BLOOD SPECIMEN Ordering Facility: [facility] Address: [address] [place], [place] [address]Performed By: #### 69016-9, 45263-5 #### [facility] CLIA [id number] [address] [place] [address] [place] AMERICAPlatelet mean volume (Bld) [Entitic vol]8.7 fLLow9.0-12.7Fsaint vincent hospital HospitalComment on above:Order Comment: Specimen Type: BLOOD SPECIMEN Ordering Facility: [facility] Address: [address] [place], [place] [address]Performed By: #### 34238-2, 53663-8 #### [facility] CLIA [id number] [address] [place] [address] [place] AMERICAPlatelets (Bld) [#/Vol]222 10*3/uL Idskhr721-437Skpbyffb HospitalComment on above:Order Comment: Specimen Type: BLOOD SPECIMEN Ordering Facility: [facility] Address: [address] [place], [place] [address]Performed By: #### 36241-2, 22681-8 #### [facility] [place] [id number] [address] [place] [id number] [facility] (Bld) [#/Vol]4.49 10*6/uLNormal 4.20-6.00[facility] State HospitalComment on above:Order Comment: Specimen Type: BLOOD SPECIMEN Ordering Facility: [facility] Address: [address] [place], [place] [address]Performed By: #### 98439-2, 00794-4 #### [facility] [place] [id number] [address] (Bld) [#/Vol]5.87 10*3/uLNormal 3.70-11.00FaNew England Rehabilitation Hospital at LowellComment on above:Order Comment: Specimen Type: BLOOD SPECIMEN Ordering Facility: [facility] Address: [address] [place], [place] [address]Performed By: #### 07191-6, 44771-7 #### [facility] [place] [id number] [address]CONSULT PROGon [id number] PROGHNO ID: [id number] Author: NAUN COUCH MD Service: Nephrology Author [...] (mg/dL) Date Value 10/27/2023 9.1 Impression/Recommendations Mr. Lroa is a 63 year old male with a past medical history of CKD III with baseline Cr up ~ 1.5, chronic respiratory failure on 4L home O2 since 05/2023, morbid obesity, insulin dependent diabetes, and left forefoot amputation admitted from home who presented to [facility] with complaints of worsening shortness of breath, bilateral lower extremity edema and ~ 10lb weight gain in the last few weeks. Patient reports multiple hospital admissions in 2023 at [facility] in [place] for fluid overload. He states he usually [...] More stable, feeling b (more content not included)...NormalBoston [facility] metabolic 2000 panelon 64-43-7102Pijrykk [Mass/Vol]3.3 g/dLLow 3.9-4.9[facility] HospitalComment on above:Order Comment: Specimen Type: BLOOD SPECIMEN Ordering Facility: [facility] Address: [address] [place], [place] [address]Performed By: #### 53894-8, 55684-9 #### [facility] CLIA [id number] [address] [place] [address] [place] AMERICAALP [Catalytic activity/Vol]88 U/L Foulwh42-016Bvnqbqas HospitalComment on above:Order Comment: Specimen Type: BLOOD SPECIMEN Ordering Facility: [facility] Address: [address] [place], [place] [address]Performed By: #### 31387-8, 84791-1 #### [facility] CLIA [id number] [address] [place] [address] [place] [Catalytic activity/Vol]11 U/L [id number] HospitalComment on above:Order Comment: Specimen Type: BLOOD SPECIMEN Ordering Facility: [facility] Address: [address] [place], [place] [address]Performed By: #### 68442-6, 17974-9 #### [facility] CLIA [id number] [address] [place] [address] [place] AMERICAAnion gap [Moles/Vol]9 mmol/LNormal 9-18[facility] HospitalComment on above:Order Comment: Specimen Type: BLOOD SPECIMEN Ordering Facility: [facility] Address: [address] [place], [place] [address]Performed By: #### 91917-1, 76199-5 #### [facility] CLIA [id number] [address] [place] [address] [place] [Catalytic activity/Vol]11 U/L [id number] State HospitalComment on above:Order Comment: Specimen Type: BLOOD SPECIMEN Ordering Facility: [facility] Address: [address] [place], [place] [address]Performed By: #### 60994-3, 10371-7 #### [facility] CLIA [id number] [address] [place] [address] [place] AMERICABilirubin [Mass/Vol]0.6 mg/dLNormal 0.2-1.3[facility] HospitalComment on above:Order Comment: Specimen Type: BLOOD SPECIMEN Ordering Facility: [facility] Address: [address] [place], [place] [address]Performed By: #### 26199-8, 24210-5 #### [facility] CLIA [id number] [address] [place] [address] [place] AMERICACalcium [Mass/Vol]9.1 mg/dLNormal 8.5-10.2Fs[facility] HospitalComment on above:Order Comment: Specimen Type: BLOOD SPECIMEN Ordering Facility: [facility] Address: [address] [place], [place] [address]Performed By: #### 64768-5, 45209-3 #### [facility] CLIA [id number] [address] [place] [address] [place] AMERICAChloride [Moles/Vol]100 mmol/LNormal 97-105[facility] HospitalComment on above:Order Comment: Specimen Type: BLOOD SPECIMEN Ordering Facility: [facility] Address: [address] [place], [place] [address]Performed By: #### 03326-5, 00425-7 #### [facility] CLIA [id number] [address] [place] [address] [place] AMERICACO2 [Moles/Vol]35 mmol/COarq53-52 [facility] HospitalComment on above:Order Comment: Specimen Type: BLOOD SPECIMEN Ordering Facility: [facility] Address: [address] [place], [place] [address]Performed By: #### 58043-6, 36677-5 #### [facility] CLIA [id number] [address] [place] [address] [place] AMERICACreatinine [Mass/Vol]1.62 mg/dLHigh 0.73-1.22[facility] on above:Order Comment: Specimen Type: BLOOD SPECIMEN Ordering Facility: [facility] Address: [address] [place], [place] [address]Performed By: #### 57043-8, 20751-0 #### [facility] CLIA [id number] [address] [place] [address] [place] AMERICACreatinine and Glomerular filtration rate.predicted panel (S/P/Bld)47 mL/min/1.73m???Low>=60[facility] on above:Order Comment: Specimen Type: BLOOD SPECIMEN Ordering Facility: [facility] Address: [address] [place], [place] [address]Result Comment: Estimated Glomerular Filtration Rate (eGFR) is [...] not accurately reflect actual GFR.Performed By: #### 01334-7, 50040-2 #### [facility] CLIA [id number] [address] [place] [address] [place] AMERICAGlucose [Mass/Vol]145 mg/wTPzjm30-53 [facility] on above:Order Comment: Specimen Type: BLOOD SPECIMEN Ordering Facility: [facility] Address: [address] [place], [place] [address]Result Comment: The [place] Diabetes Association (ADA) provides guidance for cutoff [...] Standards of Medical Care in Diabetes 2016, [place] [employer]. Diabetes Care. 2016.39(Suppl 1).Performed By: #### 53406-6, 03232-4 #### [facility] CLIA [id number] [address] [place] [address] [place] AMERICAPotassium [Moles/Vol]4.1 mmol/L Normal3.7-5.1[facility] HospitalComment on above:Order Comment: Specimen Type: BLOOD SPECIMEN Ordering Facility: [facility] Address: [address] [place], [place] [address]Performed By: #### 78847-3, 55194-6 #### [facility] CLIA [id number] [address] [place] [address] [place] AMERICAProtein [Mass/Vol]6.3 g/dLNormal 6.3-8.0[facility] HospitalComment on above:Order Comment: Specimen Type: BLOOD SPECIMEN Ordering Facility: [facility] Address: [address] [place], [place] [address]Performed By: #### 91526-6, 70341-9 #### [facility] CLIA [id number] [address] [place] [address] [place] AMERICASodium [Moles/Vol]144 mmol/LNormal 136-144[facility] HospitalComment on above:Order Comment: Specimen Type: BLOOD SPECIMEN Ordering Facility: [facility] Address: [address] [place], [place] [address]Performed By: #### 97611-7, 47278-7 #### [facility] CLIA [id number] [address] [place] [address] [place] AMERICAUrea nitrogen [Mass/Vol]40 mg/dLHigh 9-24[facility] HospitalComment on above:Order Comment: Specimen Type: BLOOD SPECIMEN Ordering Facility: [facility] Address: [address] [place], [place] [address]Performed By: #### 74756-1, 24593-9 #### [facility] CLIA [id number] [address] [place] [address] [place] AMERICAMagnesium SerPl-mCncon 10-27-2023 Magnesium [Mass/Vol]1.9 mg/dLNormal1.7-2.3[facility] HospitalComment on above: Order Comment: Specimen Type: BLOOD SPECIMEN Ordering Facility: [facility] Address: [address] [place], [place] [address]Performed By: #### 82816-9, 14402-9 #### [facility] CLIA [id number] [address] [place] [address] [place] AMERICAPhosphate SerPl-mCncon 10-27-2023 Phosphate [Mass/Vol]4.1 mg/dLNormal2.7-4.8[facility] HospitalComment on above: Order Comment: Specimen Type: BLOOD SPECIMEN Ordering Facility: [facility] Address: [address] [place], [place] [address]Performed By: #### 30962-5, 84539-5 #### [facility] IA [id number] [address] [place] [address] [place] AMERICATHERAPY NTon [id number] NTHNO ID: [id number] Author: VELIA HARGROVE RRT Service: Respiratory Therapy [...] 26, 2023 TIME: 10:12 PM PAGER[facility]CONTACT #: [facility] Auto Differential panel (Bld)on [id number] (Bld) [#/Vol]0.04 10*3/uLNormal <0.11[facility] HospitalComment on above:Order Comment: Specimen Type: BLOOD SPECIMEN Ordering Facility: [facility] Address: [address] [place], [place] [address]Performed By: #### PTTAC #### [facility] CLIA [id number] [address] [place] [address] [place] AMERICABasophils/100 WBC (Bld)0.6 %Normal [facility] HospitalComment on above:Order Comment: Specimen Type: BLOOD SPECIMEN Ordering Facility: [facility] Address: [address] [place], [place] [address]Performed By: #### PTTAC #### [facility] CLIA [id number] [address] [place] [address] [place] AMERICADifferential cell count method Nom (Bld)AutoNormalFapaul a. [facility] state [facility] HospitalComment on above:Order Comment: Specimen Type: BLOOD SPECIMEN Ordering Facility: [facility] Address: [address] [place], [place] [address]Performed By: #### PTTAC #### [facility] CLIA [id number] [address] [place] [address] [place] AMERICAEosinophils (Bld) [#/Vol]0.29 10*3/uLNormal<0.46[facility] HospitalComment on above:Order Comment: Specimen Type: BLOOD SPECIMEN Ordering Facility: [facility] Address: [address] [place], [place] [address]Performed By: #### PTTAC #### [facility] CLIA [id number] [address] [place] [address] [place] AMERICAEosinophils/100 WBC (Bld)4.5 %Normal [facility] [place] HospitalComment on above:Order Comment: Specimen Type: BLOOD SPECIMEN Ordering Facility: [facility] Address: [address] [place], [place] [address]Performed By: #### PTTAC #### [facility] CLIA [id number] [address] [place] [address] [place] AMERICAErythrocyte distribution width (RBC) [Ratio]16.3 %High11.5-15.0[facility] HospitalComment on above:Order Comment: Specimen Type: BLOOD SPECIMEN Ordering Facility: [facility] Address: [address] [place], [place] [address]Performed By: #### PTTAC #### [facility] CLIA [id number] [address] [place] [address] [place] AMERICAHematocrit (Bld) [Volume fraction] 38.8 %Low39.0-51.0[facility] HospitalComment on above:Order Comment: Specimen Type: BLOOD SPECIMEN Ordering Facility: [facility] Address: [address] [place], [place] [address]Performed By: #### PTTAC #### [facility] CLIA [id number] [address] [place] [address] [place] AMERICAHemoglobin (Bld) [Mass/Vol]11.6 g/dL Low13.0-17.0[facility] [place] HospitalComment on above:Order Comment: Specimen Type: BLOOD SPECIMEN Ordering Facility: [facility] Address: [address] [place], [place] [address]Performed By: #### PTTAC #### [facility] IA [id number] [address] [place] [address] [place] AMERICAImmature granulocytes (Bld) [#/Vol] 0.06 10*3/uLNormal<0.10[facility] HospitalComment on above:Order Comment: Specimen Type: BLOOD SPECIMEN Ordering Facility: [facility] Address: [address] [place], [place] [address]Performed By: #### PTTAC #### [facility] CLIA [id number] [address] [place] [address] [place] AMERICAImmature granulocytes/100 WBC (Bld) 0.9 %NormalFapaul [facility]. [facility] HospitalComment on above:Order Comment: Specimen Type: BLOOD SPECIMEN Ordering Facility: [facility] Address: [address] [place], [place] [address]Performed By: #### PTTAC #### [facility] CLIA [id number] [address] [place] [address] [place] AMERICALymphocytes (Bld) [#/Vol]0.94 10*3/uLLow1.00-4.00[facility] [place] HospitalComment on above:Order Comment: Specimen Type: BLOOD SPECIMEN Ordering Facility: [facility] Address: [address] [place], [place] [address]Performed By: #### PTTAC #### [facility] CLIA [id number] [address] [place] [address] [place] [facility] HOSPITALLymphocytes/100 WBC (Bld)14.5 % NormalLong Bottom HospitalComment on above:Order Comment: Specimen Type: BLOOD SPECIMEN Ordering Facility: [facility] Address: [address] [place], [place] [address]Performed By: #### PTTAC #### [facility] CLIA [id number] [address] [place] [address] (RBC) [Entitic mass]27.0 pg Kmitfi10.0-34.0[facility] HospitalComment on above:Order Comment: Specimen Type: BLOOD SPECIMEN Ordering Facility: [facility] Address: [address] [place], [place] [address]Performed By: #### PTTAC #### [facility] CLIA [id number] [address] [place], [place] [address]HC (RBC) [Mass/Vol]29.9 g/dLLow 30.5-36.0[facility] [place] HospitalComment on above:Order Comment: Specimen Type: BLOOD SPECIMEN Ordering Facility: [facility] Address: [address] [place], [place] [address]Performed By: #### PTTAC #### [facility] CLIA [id number] [address] [place], [place] [address]V (RBC) [Entitic vol]90.2 fLNormal 80.0-100.0[facility] [place] HospitalComment on above:Order Comment: Specimen Type: BLOOD SPECIMEN Ordering Facility: [facility] Address: [address] [place], [place] [address]Performed By: #### PTTAC #### [facility] CLIA [id number] [address] [place] [address] [place] AMERICAMonocytes (Bld) [#/Vol]0.71 10*3/uL Normal<0.87[facility] HospitalComment on above:Order Comment: Specimen Type: BLOOD SPECIMEN Ordering Facility: [facility] Address: [address] [place], [place] [address]Performed By: #### PTTAC #### [facility] CLIA [id number] [place] [address] [place] AMERICAMonocytes/100 WBC (Bld)10.9 %Normal [facility] [place] HospitalComment on above:Order Comment: Specimen Type: BLOOD SPECIMEN Ordering Facility: [facility] Address: [address] [place], [place] [address]Performed By: #### PTTAC #### [facility] CLIA [id number] [address] [place] [address] [place] AMERICANeutrophils (Bld) [#/Vol]4.45 10*3/uLNormal1.45-7.50[facility] HospitalComment on above:Order Comment: Specimen Type: BLOOD SPECIMEN Ordering Facility: [facility] Address: [address] [place], [place] [address]Performed By: #### PTTAC #### [facility] CLIA [id number] [address] [place] [address] [place] AMERICANeutrophils/100 WBC (Bld)68.6 % NormalLong Bottom HospitalComment on above:Order Comment: Specimen Type: BLOOD SPECIMEN Ordering Facility: [facility] Address: [address] [place], [place] [address]Performed By: #### PTTAC #### [facility] CLIA [id number] [address] [place] [address] [place] AMERICANucleated RBC (Bld) [#/Vol]10*3/uL Normal<0.01[facility] HospitalComment on above:Order Comment: Specimen Type: BLOOD SPECIMEN Ordering Facility: [facility] Address: [address] [place], [place] [address]Performed By: #### PTTAC #### [facility] CLIA [id number] [address] [place] [address] [place] AMERICANucleated RBC/100 WBC (Bld) [Ratio] 0.0 /100 WBCNormalLong Bottom HospitalComment on above:Order Comment: Specimen Type: BLOOD SPECIMEN Ordering Facility: [facility] Address: [address] [place], [place] [address]Performed By: #### PTTAC #### [facility] CLIA [id number] [address] [place] [address] [place] AMERICAPlatelet mean volume (Bld) [Entitic vol]9.0 fLNormal9.0-12.7[facility] HospitalComment on above:Order Comment: Specimen Type: BLOOD SPECIMEN Ordering Facility: [facility] Address: [address] [place], [place] [address]Performed By: #### PTTAC #### [facility] CLIA [id number] [address] [place] [address] [place] AMERICAPlatelets (Bld) [#/Vol]247 10*3/uL [id number] HospitalComment on above:Order Comment: Specimen Type: BLOOD SPECIMEN Ordering Facility: [facility] Address: [address] [place], [place] [address]Performed By: #### PTTAC #### [facility] CLIA [id number] [address] [place] [address] [place] AMERICARBC (Bld) [#/Vol]4.30 10*6/uLNormal 4.20-6.00[facility] HospitalComment on above:Order Comment: Specimen Type: BLOOD SPECIMEN Ordering Facility: [facility] Address: [address] [place], [place] [address]Performed By: #### PTTAC #### [facility] CLIA [id number] [address] [place] [address] [place] AMERICAWBC (Bld) [#/Vol]6.49 10*3/uLNormal 3.70-11.00[facility] HospitalComment on above:Order Comment: Specimen Type: BLOOD SPECIMEN Ordering Facility: [facility] Address: [address] [place], [place] [address]Performed By: #### PTTAC #### [facility] [id number] [address] [place], [place] [address]CONSULTon [id number] ID: [id number] Author: STEFANIE BARRETT MD Service: Pulmonary Disease [...] Li (more content not included)...NormalFairview HospitalCONSULT PROGon [id number] [facility] ID: [id number] Author: GORDO BUTLER APRN.CNP Service: Cardiovascular Medicine Author Type: Nurse Practitioner Type: Consult Progress Note Filed: 10/26/2023 14:03 Note Text: [facility] CARDIOVASCULAR MEDICINE PROGRESS NOTE (Template ID [id number]) SERVICE DATE: 10/26/2023 SERVICE TIME: 1115 PRIMARY [...] -- 10/25/23 001 activity - mobilize patient ([place]) 10/24/23 014 activity - mobilize [place] ([place] VTE Prophylaxis: VTE prophylaxis appropriate ASSESSMENT [...] Lora DATE: October 26, 2023 TIME: 1:52 [facility] ID: [id number] Author: NAUN COUCH MD Service: Nephrology Author [...] amputation admitted from home who presented to [facility] with complaints of worsening shortness of breath, bilateral lower extremity edema and ~ 10lb weight gain in the last few weeks. Patient reports multiple hospital admissions in 2023 at [facility] in [place] for fluid overload. He states he usually [...] mg TID More stable, feeling better -[employer]ENT Hydra (more content not included)...NormalFapaul a. [facility] HospitalMagnesium SerPl-mCncon 07-67-2904Eeugqsgus [Mass/Vol]2.1 mg/dLNormal1.7-2.3Fair[facility] HospitalComment on above:Order Comment: Specimen Type: BLOOD SPECIMEN Ordering Facility: [facility] Address: [address] [place], [place] [address]Performed By: #### 49732-9, 14349-9 #### [facility] CLIA [id number] [address] [place] [address] [place] AMERICARenal function 2000 panelon [id number] [Mass/Vol]3.3 g/dLLow3.9-4.9[facility] HospitalComment on above: Order Comment: Specimen Type: BLOOD SPECIMEN Ordering Facility: [facility] Address: [address] [place], [place] [address]Performed By: #### 39199-0, 28263-3 #### [facility] CLIA [id number] [address] [place] [address] [place] AMERICAAnion gap [Moles/Vol]15 mmol/LNormal 9-18[facility] HospitalComment on above:Order Comment: Specimen Type: BLOOD SPECIMEN Ordering Facility: [facility] Address: [address] [place], [place] [address]Performed By: #### 62625-1, 19520-5 #### [facility] CLIA [id number] [address] [place] [address] [place] AMERICACalcium [Mass/Vol]9.1 mg/dLNormal 8.5-10.2Fs[facility] HospitalComment on above:Order Comment: Specimen Type: BLOOD SPECIMEN Ordering Facility: [facility] Address: [address] [place], [place] [address]Performed By: #### 36873-6, 28736-6 #### [facility] CLIA [id number] [address] [place] [address] [place] AMERICAChloride [Moles/Vol]101 mmol/LNormal 97-105[facility] HospitalComment on above:Order Comment: Specimen Type: BLOOD SPECIMEN Ordering Facility: [facility] Address: [address] [place], [place] [address]Performed By: #### 30237-9, 63741-9 #### [facility] CLIA [id number] [address] [place] [address] [place] AMERICACO2 [Moles/Vol]30 mmol/KFhsltn86-96 [facility] [place] HospitalComment on above:Order Comment: Specimen Type: BLOOD SPECIMEN Ordering Facility: [facility] Address: [address] [id number] By: #### 60652-7, 37913-4 #### [facility] CLIA [id number] [address] [place] [address] [place] AMERICACreatinine [Mass/Vol]1.84 mg/dLHigh 0.73-1.22[facility] on above:Order Comment: Specimen Type: BLOOD SPECIMEN Ordering Facility: [facility] Address: [address] [place], [place] [address]Performed By: #### 74105-5, 87334-5 #### [facility] CLIA [id number] [address] [place] [address] [place] AMERICACreatinine and Glomerular filtration rate.predicted panel (S/P/Bld)40 mL/min/1.73m???Low>=60[facility] HospitalComun[facility] on above:Order Comment: Specimen Type: BLOOD SPECIMEN Ordering Facility: [facility] Address: [address] [place], [place] [address]Result Comment: Estimated Glomerular Filtration Rate (eGFR) is [...] not accurately reflect actual GFR.Performed By: #### 95701-4, 47090-5 #### [facility] CLIA [id number] [address] [place] [address] [place] AMERICAGlucose [Mass/Vol]189 mg/lKXfwj76-58 [facility] on above:Order Comment: Specimen Type: BLOOD SPECIMEN Ordering Facility: [facility] Address: [address] [place], [place] [address]Result Comment: The [place] [employer] (ADA) provides guidance for cutoff [...] Standards of Medical Care in Diabetes 2016, [place] [employer]. Diabetes Care. 2016.39(Suppl 1).Performed By: #### 30608-4, 26860-5 #### [facility] CLIA [id number] [address] [place] [address] [place] AMERICAPhosphate [Mass/Vol]3.9 mg/dLNormal 2.7-4.8[facility] HospitalComment on above:Order Comment: Specimen Type: BLOOD SPECIMEN Ordering Facility: [facility] Address: [address] [place], [place] [address]Performed By: #### 39511-3, 42620-0 #### [facility] CLIA [id number] [address] [place] [address] [place] AMERICAPotassium [Moles/Vol]4.3 mmol/L Normal3.7-5.1Fs[facility] HospitalComment on above:Order Comment: Specimen Type: BLOOD SPECIMEN Ordering Facility: [facility] Address: [address] [place], [place] [address]Performed By: #### 62865-8, 28669-6 #### [facility] CLIA [id number] [address] [place] [address] [place] AMERICASodium [Moles/Vol]146 mmol/LHigh 136-144[facility] HospitalComment on above:Order Comment: Specimen Type: BLOOD SPECIMEN Ordering Facility: [facility] Address: [address] [place], [place] [address]Performed By: #### 53036-3, 55699-0 #### [facility] CLIA [id number] [address] [place] [address] [place] AMERICAUrea nitrogen [Mass/Vol]48 mg/dLHigh 9-24[facility] HospitalComment on above:Order Comment: Specimen Type: BLOOD SPECIMEN Ordering Facility: [facility] Address: [address] [place], [place] [address]Performed By: #### 49191-7, 30796-8 #### [facility] [id number] [address] [place] [address] [id number] HEALTHHNO ID: [id number] Author: CLARA HARDIN RT(R) Service: Radiology Author [...] PATIENT PRESENTS WITH AN IMPLANTABLE OR ATTACHED BLUNGER: No RADIOLOGY DEPARTMENT: General X-ray: Exam(s) Completed: Chest X-Ray PERIPHERAL IV DATA: Not applicable SIGNED BY: RT Raffy(R) October 25, 2023 4:59 [facility] INIT [facility] [id number] MGT [facility]: [id number] Author: BUTCH WETZEL RN Service: ? Author [...] Relation: Son Admission Status: Inpatient Insurance Provider: [facility] Discharge Planning requested by: Per Department Practice Potential Transition Plans To Be Determined Advance Directives Current Advance Directive: None Psychiatric Lpn Attempted to Assist with AD Completion: Yes [...] 25, 2023 TIME: 9:54 AM CONTACT #: [phone] Auto Differential panel (Bld)on 02-20-6864Tjjpyltio (Bld) [#/Vol]0.03 10*3/uLNormal <0.11[facility] on above:Order Comment: Specimen Type: BLOOD SPECIMEN Ordering Facility: [facility] Address: [address] [place], [place] [address]Performed By: #### 84521-6, 03150-6 #### [facility] CLIA [id number] [address] [place] [address] [place] AMERICABasophils/100 WBC (Bld)0.4 %Normal [facility] on above:Order Comment: Specimen Type: BLOOD SPECIMEN Ordering Facility: [facility] Address: [address] [place], [place] [address]Performed By: #### 54158-4, 71562-2 #### [facility] CLIA [id number] [address] [place] [address] [place] AMERICADifferential cell count method Nom (Bld)AutoNormalLong Bottom HospitalComment on above:Order Comment: Specimen Type: BLOOD SPECIMEN Ordering Facility: [facility] Address: [address] [place], [place] [address]Performed By: #### 65856-5, 04423-2 #### [facility] CLIA [id number] [address] [place] [address] [place] AMERICAEosinophils (Bld) [#/Vol]0.22 10*3/uLNormal<0.46[facility] HospitalComment on above:Order Comment: Specimen Type: BLOOD SPECIMEN Ordering Facility: [facility] Address: [address] [place], [place] [address]Performed By: #### 65518-7, 65445-9 #### [facility] CLIA [id number] [address] [place] [address] [place] AMERICAEosinophils/100 WBC (Bld)2.9 %Normal [facility] HospitalComment on above:Order Comment: Specimen Type: BLOOD SPECIMEN Ordering Facility: [facility] Address: [address] [place], [place] [address]Performed By: #### 62900-0, 03758-7 #### [facility] CLIA [id number] [address] [place] [address] [place] AMERICAErythrocyte distribution width (RBC) [Ratio]16.5 %High11.5-15.0[facility] HospitalComment on above:Order Comment: Specimen Type: BLOOD SPECIMEN Ordering Facility: [facility] Address: [address] [place], [place] [address]Performed By: #### 62910-2, 88517-2 #### [facility] CLIA [id number] [address] [place] [address] [place] AMERICAHematocrit (Bld) [Volume fraction] 41.0 %Ekjqrr63.0-51.0[facility] HospitalComment on above:Order Comment: Specimen Type: BLOOD SPECIMEN Ordering Facility: [facility] Address: [address] [place], [place] [address]Performed By: #### 37632-4, 15388-9 #### [facility] CLIA [id number] [address] [place] [address] [place] AMERICAHemoglobin (Bld) [Mass/Vol]12.1 g/dL Low13.0-17.0[facility] HospitalComment on above:Order Comment: Specimen Type: BLOOD SPECIMEN Ordering Facility: [facility] Address: [address] [place], [place] [address]Performed By: #### 36077-6, 78402-9 #### [facility] CLIA [id number] [address] [place] [address] [place] AMERICAImmature granulocytes (Bld) [#/Vol] 0.04 10*3/uLNormal<0.10[facility] HospitalComment on above:Order Comment: Specimen Type: BLOOD SPECIMEN Ordering Facility: [facility] Address: [address] [place], [place] [address]Performed By: #### 50848-2, 27353-4 #### [facility] CLIA [id number] [address] [place] [address] [place] AMERICAImmature granulocytes/100 WBC (Bld) 0.5 %NormalLong Bottom HospitalComment on above:Order Comment: Specimen Type: BLOOD SPECIMEN Ordering Facility: [facility] Address: [address] [place], [place] [address]Performed By: #### 33898-2, 35012-6 #### [facility] CLIA [id number] [address] [place] [address] [place] AMERICALymphocytes (Bld) [#/Vol]0.80 10*3/uLLow1.00-4.00[facility] HospitalComment on above:Order Comment: Specimen Type: BLOOD SPECIMEN Ordering Facility: [facility] Address: [address] [place], [place] [address]Performed By: #### 89482-6, 29206-3 #### [facility] CLIA [id number] [address] [place] [address] [place] AMERICALymphocytes/100 WBC (Bld)10.6 % NormalLong Bottom HospitalComment on above:Order Comment: Specimen Type: BLOOD SPECIMEN Ordering Facility: [facility] Address: [address] [place], [place] [address]Performed By: #### 16842-7, 65838-9 #### [facility] CLIA [id number] [address] [place] [address] (RBC) [Entitic mass]26.8 pg Hbeqyd25.0-34.0[facility] HospitalComment on above:Order Comment: Specimen Type: BLOOD SPECIMEN Ordering Facility: [facility] Address: [address] [place], [place] [address]Performed By: #### 00217-6, 75760-0 #### [facility] CLIA [id number] [address] [place], [place] [address]HC (RBC) [Mass/Vol]29.5 g/dLLow 30.5-36.0[facility] HospitalComment on above:Order Comment: Specimen Type: BLOOD SPECIMEN Ordering Facility: [facility] Address: [address] [place], [place] [address]Performed By: #### 54743-8, 09641-8 #### [facility] CLIA [id number] [address] [place] [address] (RBC) [Entitic vol]90.7 fLNormal 80.0-100.0[facility] HospitalComment on above:Order Comment: Specimen Type: BLOOD SPECIMEN Ordering Facility: [facility] Address: [address] [place], [place] [address]Performed By: #### 43483-6, 11554-2 #### [facility] CLIA [id number] [address] [place], [place] [address]Monocytes (Bld) [#/Vol]0.64 10*3/uL Normal<0.87[facility] HospitalComment on above:Order Comment: Specimen Type: BLOOD SPECIMEN Ordering Facility: [facility] Address: [address] [place], [place] [address]Performed By: #### 89584-6, 23783-6 #### [facility] CLIA [id number] [address] [place] [address] [place] AMERICAMonocytes/100 WBC (Bld)8.5 %Normal [facility] HospitalComment on above:Order Comment: Specimen Type: BLOOD SPECIMEN Ordering Facility: [facility] Address: [address] [place], [place] [address]Performed By: #### 95567-0, 74827-2 #### [facility] CLIA [id number] [address] [place] [address] [place] AMERICANeutrophils (Bld) [#/Vol]5.80 10*3/uLNormal1.45-7.50[facility] HospitalComment on above:Order Comment: Specimen Type: BLOOD SPECIMEN Ordering Facility: [facility] Address: [address] [place], [place] [address]Performed By: #### 94080-1, 97725-1 #### [facility] CLIA [id number] [address] [place] [address] [place] AMERICANeutrophils/100 WBC (Bld)77.1 % NormalLong Bottom HospitalComment on above:Order Comment: Specimen Type: BLOOD SPECIMEN Ordering Facility: [facility] Address: [address] [place], [place] [address]Performed By: #### 43685-2, 14349-2 #### [facility] CLIA [id number] [address] [place] [address] [place] AMERICANucleated RBC (Bld) [#/Vol]10*3/uL Normal<0.01[facility] HospitalComment on above:Order Comment: Specimen Type: BLOOD SPECIMEN Ordering Facility: [facility] Address: [address] [place], [place] [address]Performed By: #### 53195-9, 91039-4 #### [facility] CLIA [id number] [address] [place] [address] [place] AMERICANucleated RBC/100 WBC (Bld) [Ratio] 0.0 /100 WBCNormalLong Bottom HospitalComment on above:Order Comment: Specimen Type: BLOOD SPECIMEN Ordering Facility: [facility] Address: [address] [place], [place] [address]Performed By: #### 88976-6, 51040-7 #### [facility] CLIA [id number] [address] [place] [address] [place] AMERICAPlatelet mean volume (Bld) [Entitic vol]8.6 fLLow9.0-12.7Fsaint [facility]cent hospital HospitalComment on above:Order Comment: Specimen Type: BLOOD SPECIMEN Ordering Facility: [facility] Address: [address] [place], [place] [address]Performed By: #### 48700-5, 18562-7 #### [facility] CLIA [id number] [address] [place] [address] [place] AMERICAPlatelets (Bld) [#/Vol]235 10*3/uL Wprpix370-307Pltfddab HospitalComment on above:Order Comment: Specimen Type: BLOOD SPECIMEN Ordering Facility: [facility] Address: [address] [place], [place] [address]Performed By: #### 36837-0, 42426-5 #### [facility] CLIA [id number] [address] [place] [address] [place] AMERICARBC (Bld) [#/Vol]4.52 10*6/uLNormal 4.20-6.00[facility] HospitalComment on above:Order Comment: Specimen Type: BLOOD SPECIMEN Ordering Facility: [facility] Address: [address] [place], [place] [address]Performed By: #### 84018-5, 47767-9 #### [facility] CLIA [id number] [address] [place] [address] [place] AMERICAWBC (Bld) [#/Vol]7.53 10*3/uLNormal 3.70-11.00[facility] HospitalComment on above:Order Comment: Specimen Type: BLOOD SPECIMEN Ordering Facility: [facility] Address: [address] [place], [place] [address]Performed By: #### 99678-6, 72621-5 #### [facility] CLIA [id number] STATES OF AMERICAECHOon 19-87-7307Fjyulnvwseqdvekb Echocardiography Report: Transthoracic Echo [facility] Date of service: 10/25/2023 2:47:07 PM Ordering physician: JUDI LOERA Indication: Chest Pain Symptom(s): Shortness of breath and Palpitations Technologist: Lizet Chacon [facility] Interpreting physician: Moisés Hassan MD PATIENT: [...] * * * Final * * * [employer] : [id number] [facility] HospitalGas and Carbon monoxide panel (BldV)on 45-82-8945Nyky excess Calc (BldV) [Moles/Vol]6 mmol/LHigh0-2FFederal Medical Center, DevensComment on above:Order Comment: Specimen Type: BLOOD SPECIMEN Ordering Facility: [facility] Address: [address] [place], [place] [address]Performed By: #### PTTAC #### [facility] CLIA [id number] [address] [place] [address] [place] AMERICABody duucizhjtuc40.78 [degF]Normal [facility] HospitalComment on above:Order Comment: Specimen Type: BLOOD SPECIMEN Ordering Facility: [facility] Address: [address] [place], [place] [address]Performed By: #### PTTAC #### [facility] IA [id number] [address] [place] [address] [place] AMERICACalcium.ionized (Bld) [Mass/Vol]1.15 mmol/LNormal1.08-1.30[facility] HospitalComment on above:Order Comment: Specimen Type: BLOOD SPECIMEN Ordering Facility: [facility] Address: [address] [place], [place] [address]Performed By: #### PTTAC #### [facility] IA [id number] [address] [place] [address] [place] AMERICACalcium.ionized adjusted to pH 7.4 (BldA) [Moles/Vol]1.12 mmol/LNormal1.08-1.30[facility] HospitalComment on above: Order Comment: Specimen Type: BLOOD SPECIMEN Ordering Facility: [facility] Address: [address] [place], [place] [address]Performed By: #### PTTAC #### [facility] IA [id number] [address] [place] [address] [place] AMERICACarboxyhemoglobin (BldV) [Mass fraction]2.7 %High0.0-2.0[facility] HospitalComment on above:Order Comment: Specimen Type: BLOOD SPECIMEN Ordering Facility: [facility] Address: [address] [place], [place] [address]Result Comment: Carboxyhemoglobin Reference Range for Smokers: 2.0-8.0%Performed By: #### PTTAC #### [facility] CLIA [id number] [address] [place] [address] [place] AMERICAChloride [Moles/Vol]105 mmol/LNormal 97-105[facility] HospitalComment on above:Order Comment: Specimen Type: BLOOD SPECIMEN Ordering Facility: [facility] Address: [address] [place], [place] [address]Performed By: #### PTTAC #### [facility] CLIA [id number] [address] [place] [address] [place] AMERICACO2 (BldV) [Partial pressure]61 mm[Hg]Mmgi74-09Xeltazvi HospitalComment on above:Order Comment: Specimen Type: BLOOD SPECIMEN Ordering Facility: [facility] Address: [address] [place], [place] [address]Performed By: #### PTTAC #### [facility] CLIA [id number] [address] [place] [address] [place] AMERICACO2 adjusted to patient's actual temperature (BldV) [Partial pressure]NormalLong Bottom HospitalComment on above: Order Comment: Specimen Type: BLOOD SPECIMEN Ordering Facility: [facility] Address: [address] [place], [place] [address]Performed By: #### PTTAC #### [facility] CLIA [id number] [address] [place] [address] [place] OF VNBFLHJBXM126 %NormalLong Bottom Hospital Comment on above:Order Comment: Specimen Type: BLOOD SPECIMEN Ordering Facility: [facility] Address: [address] [place], [place] [address]Performed By: #### PTTAC #### [facility] CLIA [id number] [address] [place] [address] [place] AMERICAGlucose [Mass/Vol]152 mg/dLHigh 60-105[facility] HospitalComment on above:Order Comment: Specimen Type: BLOOD SPECIMEN Ordering Facility: [facility] Address: [address] [place], [place] [address]Performed By: #### PTTAC #### [facility] CLIA [id number] [address] [place] [address] [place] AMERICAHCO3 (Bld) [Moles/Vol]33 mmol/LHigh 24-28[facility] HospitalComment on above:Order Comment: Specimen Type: BLOOD SPECIMEN Ordering Facility: [facility] Address: [address] [place], [place] [address]Performed By: #### PTTAC #### [facility] CLIA [id number] [address] [place] [address] [place] AMERICAHematocrit (Bld) [Volume fraction] 38.3 %Low39.0-51.0[facility] HospitalComment on above:Order Comment: Specimen Type: BLOOD SPECIMEN Ordering Facility: [facility] Address: [address] [place], [place] [address]Performed By: #### PTTAC #### [facility] IA [id number] [address] [place] [address] [place] AMERICAHemoglobin (Bld) [Mass/Vol]12.4 g/dL Low13.0-17.0[facility] HospitalComment on above:Order Comment: Specimen Type: BLOOD SPECIMEN Ordering Facility: [facility] Address: [address] [place], [place] [address]Performed By: #### PTTAC #### [facility] IA [id number] [address] [place] [address] [place] AMERICALactate [Moles/Vol]0.9 mmol/LNormal 0.5-2.2Fsaint [facility]cent hospital HospitalComment on above:Order Comment: Specimen Type: BLOOD SPECIMEN Ordering Facility: [facility] Address: [address] [place], [place] [address]Performed By: #### PTTAC #### [facility] IA [id number] [address] [place] [address] [place] AMERICAMethemoglobin (Bld) [Mass fraction] 1.2 %Normal0.0-1.5Fsaint vincent hospital HospitalComment on above:Order Comment: Specimen Type: BLOOD SPECIMEN Ordering Facility: [facility] Address: [address] [place], [place] [address]Performed By: #### PTTAC #### [facility] IA [id number] [address] [place] [address] [place] AMERICAO2 THERAPYPositiveNormalLong Bottom HospitalComment on above:Order Comment: Specimen Type: BLOOD SPECIMEN Ordering Facility: [facility] Address: [address] [place], [place] [address]Performed By: #### PTTAC #### [facility] IA [id number] [address] [place] [address] [place] AMERICAOxygen (BldV) [Partial pressure]107 mm[Hg]Shvw18-87Knycvnow HospitalComment on above:Order Comment: Specimen Type: BLOOD SPECIMEN Ordering Facility: [facility] Address: [address] [place], [place] [address]Performed By: #### PTTAC #### [facility] CLIA [id number] [address] [place] [address] [place] AMERICAOxygen adjusted to patient's actual temperature (BldV) [Partial pressure]NormalLong Bottom HospitalComment on above: Order Comment: Specimen Type: BLOOD SPECIMEN Ordering Facility: [facility] Address: [address] [place], [place] [address]Performed By: #### PTTAC #### [facility] CLIA [id number] [address] [place] [address] [place] AMERICAOxygen saturation in Venous blood98 %Bgmh08-15Czmsrzvx HospitalComment on above:Order Comment: Specimen Type: BLOOD SPECIMEN Ordering Facility: [facility] Address: [address] [place], [place] [address]Performed By: #### PTTAC #### [facility] CLIA [id number] [address] [place] [address] [place] AMERICAOxyhemoglobin (BldV) [Mass fraction] 94 %Wuma44-81Tbrgcfvu HospitalComment on above:Order Comment: Specimen Type: BLOOD SPECIMEN Ordering Facility: [facility] Address: [address] [place], [place] [address]Performed By: #### PTTAC #### [facility] CLIA [id number] [address] [place] [address] [place] AMERICApH (BldV)7.35 [pH]Normal7.32-7.42 [facility] HospitalComment on above:Order Comment: Specimen Type: BLOOD SPECIMEN Ordering Facility: [facility] Address: [address] [place], [place] [address]Performed By: #### PTTAC #### [facility] CLIA [id number] [address] [place] [address] [place] AMERICApH adjusted to patient's actual temperature (BldV)[facility] HospitalComment on above:Order Comment: Specimen Type: BLOOD SPECIMEN Ordering Facility: [facility] Address: [address] [place], [place] [address]Performed By: #### PTTAC #### [facility] CLIA [id number] [address] [place] [address] [place] AMERICAPotassium [Moles/Vol]4.1 mmol/L Normal3.5-5.0[facility] Hospitalment on above:Order Comment: Specimen Type: BLOOD SPECIMEN Ordering Facility: [facility] Address: [address] [place], [place] [address]Performed By: #### PTTAC #### [facility] CLIA [id number] [place] [address] [place] AMERICASodium [Moles/Vol]140 mmol/LNormal 136-144[facility] HospitalComment on above:Order Comment: Specimen Type: BLOOD SPECIMEN Ordering Facility: [facility] Address: [address] [place], [place] [address]Performed By: #### PTTAC #### [facility] CLIA [id number] [address] [place] [address] [place] AMERICAHISTORY PHYSICALon 92-85-0101VXASYDJ PHYSICALHNO ID: [id number] Author: ANUPAMA ALFRED MD Service: Critical Care Author Type: Nurse Practitioner Type: H&P Filed: 10/25/2023 03:12 Note Text: Attestation signed by Anupama Alfred MD at 10/25/2023 3:12 AM [facility] STAFF PHYSICIAN NOTE OF PERSONAL [...] medicine of brielle (more content not included)...Normal [facility] HospitalLipid 1995 panelon 77-50-3161Wqhtymwbgar [Mass/Vol]104 mg/dL Normal<200[facility] HospitalComment on above:Order Comment: Specimen Type: BLOOD SPECIMEN Ordering Facility: [facility] Address: [address] [place] [address] Comment: <200 mg/dL, Desirable 200-239 mg/dL, Borderline high >239 mg/dL, HighPerformed By: #### 25005-6, 93762-6 #### [facility] CLIA [id number] [address] [place] [address] [place] AMERICACholesterol in HDL [Mass/Vol]61 mg/dLNormal>39[facility] HospitalComment on above:Order Comment: Specimen Type: BLOOD SPECIMEN Ordering Facility: [facility] Address: [address] [place] [address] Comment: 40-59 mg/dL, Acceptable >59 mg/dL, High: Negative risk factor for coronary heart disease <40 mg/dL, Low: Positive risk factor for coronary heart diseasePerformed By: #### 74928-5, 72337-0 #### [facility] CLIA [id number] [address] [place] [address] [place] AMERICACholesterol in LDL [Mass/Vol]33 mg/dLNormal<100[facility] HospitalComment on above:Order Comment: Specimen Type: BLOOD SPECIMEN Ordering Facility: [facility] Address: [address] [place] [address] Comment: <100 mg/dL, Optimal 100-129 mg/dL, Near optimal/above optimal 130-159 mg/dL, Borderline high 160-189 mg/dL, High >189 mg/dL, Very high Secondary prevention optimal LDL Cholesterol levels are recommended to be < 70 mg/dLPerformed By: #### 01607-7, 54522-9 #### [facility] CLIA [id number] [address] [place] [address] [place] AMERICACholesterol in LDL/Cholesterol in HDL [Mass ratio]0.54 {ratio}Normal<2.54[facility] HospitalComment on above:Order Comment: Specimen Type: BLOOD SPECIMEN Ordering Facility: [facility] Address: [address] [place], [place] [address]Result Comment: Reference: 1. National Cholesterol Education Program ATP III Guideline At-A-Glance Quick Desk Reference: National Heart, Lung, and Blood [place]. National Institutes of Health. 2001: NIH Publication No. 01-3305. 2. An International Atherosclerosis Society position paper: global recommendations for the management of dyslipidemia: executive summary, Atherosclerosis. 2014: 232(2):410-413.Performed By: #### 70823-6, 01101-4 #### [facility] CLIA [id number] [address] [place] [address] [place] AMERICACholesterol in VLDL [Mass/Vol]10 mg/dLNormal<30[facility] HospitalComment on above:Order Comment: Specimen Type: BLOOD SPECIMEN Ordering Facility: [facility] Address: [address] [place], [place] [address]Performed By: #### 78222-3, 28604-9 #### [facility] CLIA [id number] [address] [place] [address] [place] AMERICACholesterol non HDL [Mass/Vol]43 mg/dLNormal<130[facility] HospitalComment on above:Order Comment: Specimen Type: BLOOD SPECIMEN Ordering Facility: [facility] Address: [address] [place], [place] [address]Result Comment: <130 mg/dL, Optimal 130-159 mg/dL, Near optimal/above optimal 160-189 mg/dL, Borderline high 190-219 mg/dL, High >219 mg/dL, Very high Secondary prevention optimal non HDL Cholesterol levels are recommended to be <100 mg/dLPerformed By: #### 79627-3, 78852-4 #### [facility] CLIA [id number] [address] [place] [address] [place] AMERICACholesterol.total/Cholesterol in HDL [Mass ratio]1.70 {ratio}Normal<5.10[facility] HospitalComment on above:Order Comment: Specimen Type: BLOOD SPECIMEN Ordering Facility: [facility] Address: [address] [place], [place] [address]Performed By: #### 25643-5, 48396-8 #### [facility] CLIA [id number] [address] [place] [address] [place] OF AMERICAFASTING TIME12 hrsNormalFapaul a. dever state school HospitalComment on above:Order Comment: Specimen Type: BLOOD SPECIMEN Ordering Facility: [facility] Address: [address] [place], [place] [address]Performed By: #### 59479-9, 50304-7 #### [facility] CLIA [id number] [address] [place] [address] [place] AMERICATriglyceride [Mass/Vol]52 mg/dL Normal<150[facility] HospitalComment on above:Order Comment: Specimen Type: BLOOD SPECIMEN Ordering Facility: [facility] Address: [address] [place], [place] [address]Result Comment: <150 mg/dL, Normal 150-199 mg/dL, Borderline high 200-499 mg/dL, High >499 mg/dL, Very highPerformed By: #### 76336-8, 20349-2 #### [facility] CLIA [id number] [address] [place] [address] [place] OF AMERICAMagnesium SerPl-mCncon 10-25-2023 Magnesium [Mass/Vol]2.0 mg/dLNormal1.7-2.3[facility] HospitalComment on above: Order Comment: Specimen Type: BLOOD SPECIMEN Ordering Facility: [facility] Address: [address] [place], [place] [address]Performed By: #### 58724-9, 59472-3 #### [facility] CLIA [id number] [address] [place] [address] [place] OF AMERICARenal function 2000 panelon 59-53-3241Weqvwab [Mass/Vol]3.4 g/dLLow3.9-4.9[facility] HospitalComment on above: Order Comment: Specimen Type: BLOOD SPECIMEN Ordering Facility: [facility] Address: [address] [place], [place] [address]Performed By: #### 52383-2, 36318-4 #### [facility] CLIA [id number] [address] [place] [address] [place] AMERICAAnion gap [Moles/Vol]10 mmol/LNormal 9-18[facility] HospitalComment on above:Order Comment: Specimen Type: BLOOD SPECIMEN Ordering Facility: [facility] Address: [address] [place], [place] [address]Performed By: #### 71413-0, 61879-6 #### [facility] CLIA [id number] [address] [place] [address] [place] AMERICACalcium [Mass/Vol]9.1 mg/dLNormal 8.5-10.2Fs[facility] hospital HospitalComment on above:Order Comment: Specimen Type: BLOOD SPECIMEN Ordering Facility: [facility] Address: [address] [place], [place] [address]Performed By: #### 22747-5, 69367-5 #### [facility] CLIA [id number] [address] [place] [address] [place] AMERICAChloride [Moles/Vol]102 mmol/LNormal 97-105[facility] HospitalComment on above:Order Comment: Specimen Type: BLOOD SPECIMEN Ordering Facility: [facility] Address: [address] [place], [place] [address]Performed By: #### 17009-8, 23445-9 #### [facility] CLIA [id number] [address] [place] [address] [place] AMERICACO2 [Moles/Vol]31 mmol/XSkxi40-93 [facility] HospitalComment on above:Order Comment: Specimen Type: BLOOD SPECIMEN Ordering Facility: [facility] Address: [address] [place], [place] [address]Performed By: #### 21262-7, 00699-6 #### [facility] CLIA [id number] [address] [place] [address] [place] AMERICACreatinine [Mass/Vol]1.89 mg/dLHigh 0.73-1.22[facility] HospitalComment on above:Order Comment: Specimen Type: BLOOD SPECIMEN Ordering Facility: [facility] Address: [address] [place], [place] [address]Performed By: #### 47823-3, 15148-4 #### [facility] CLIA [id number] [address] [place] [address] [place] AMERICACreatinine and Glomerular filtration rate.predicted panel (S/P/Bld)39 mL/min/1.73m???Low>=60[facility] on above:Order Comment: Specimen Type: BLOOD SPECIMEN Ordering Facility: [facility] Address: [address] [place], [place] [address]Result Comment: Estimated Glomerular Filtration Rate (eGFR) is [...] not accurately reflect actual GFR.Performed By: #### 22162-1, 64377-6 #### [facility] CLIA [id number] [address] [place] [id number] [place] OF AMERICAGlucose [Mass/Vol]149 mg/hNZogw68-95 [facility] on above:Order Comment: Specimen Type: BLOOD SPECIMEN Ordering Facility: [facility] Address: [address] [place] [address] Comment: The [place] [employer] (ADA) provides guidance for cutoff [...] Standards of Medical Care in Diabetes 2016, [place] [employer]. Diabetes Care. 2016.39(Suppl 1).Performed By: #### 48421-1, 46158-9 #### [facility] CLIA [id number] [address] [place] [id number] [place] OF AMERICAPhosphate [Mass/Vol]4.4 mg/dLNormal 2.7-4.8[facility] HospitalComment on above:Order Comment: Specimen Type: BLOOD SPECIMEN Ordering Facility: [facility] Address: [address] [place], [place] [address]Performed By: #### 53145-8, 60094-2 #### [facility] CLIA [id number] [address] [place] [address] [place] AMERICAPotassium [Moles/Vol]4.3 mmol/L Normal3.7-5.1Fs[facility] HospitalComment on above:Order Comment: Specimen Type: BLOOD SPECIMEN Ordering Facility: [facility] Address: [address] [place], [place] [address]Performed By: #### 31911-8, 09380-0 #### [facility] CLIA [id number] [address] [place] [address] [place] AMERICASodium [Moles/Vol]143 mmol/LNormal 136-144[facility] HospitalComment on above:Order Comment: Specimen Type: BLOOD SPECIMEN Ordering Facility: [facility] Address: [address] [place], [place] [address]Performed By: #### 60575-7, 19332-7 #### [facility] CLIA [id number] [address] [place] [address] [place] AMERICAUrea nitrogen [Mass/Vol]54 mg/dLHigh 9-24[facility] HospitalComment on above:Order Comment: Specimen Type: BLOOD SPECIMEN Ordering Facility: [facility] Address: [address] [place], [place] [address]Performed By: #### 29919-0, 27973-8 #### [facility] CLIA [id number] [address] [place] [address] [place] OF AMERICASTAPH AUREUS PCRon 10-25-2023S. aureus and MRSA panel ERIBERTO+probe (Nose)NormalNegativeLong Bottom HospitalComment on above:Order Comment: Specimen Type: SWAB OF INTERNAL NOSEOrdering Facility: [facility] Address: [address] [place], [place] [address]Result Comment: Negative for Staphylococcus aureus by PCR. Negative for MRSA by PCRPerformed By: #### SAPCR ####[facility] LABCLIA [id number] [place] [address] [place] OF AMERICAXR CHEST 1V FRONTALon 28-34-5466EK CHEST 1V FRONTAL* * *Final Report* * [...] left pleural effusion demonstrating slight interval progression. Geospatial Program Management Officer: PSCB Transcribe Date/Time: Oct 25 2023 7:29A Dictated by : KASHIF PIERSON MD This examination was interpreted and the report reviewed and electronically signed by: KASHIF PIERSON MD on Oct 25 2023 7:30AM EST [id number] Health Center [id number] HEALTHHNO ID: [id number] Author: ABDIFATAH PAGE RDMS Service: Radiology Author [...] PATIENT PRESENTS WITH AN IMPLANTABLE OR ATTACHED BLUNGER: No RADIOLOGY DEPARTMENT: Ultrasound PERIPHERAL IV DATA: Not applicable SIGNED BY: Abdifatah Page RDMS October 24, 2023 4:59 PMNormalPondville State HospitalARTERIAL BLOOD GASESon 10-24-2023 Base excess Calc (Bld) [Moles/Vol]6 mmol/LHigh0-2Fsaint [facility] hospital HospitalComment on above:Order Comment: Specimen Type: BLOOD SPECIMEN Ordering Facility: [facility] Address: [address] [place], [place] [address]Performed By: #### 17709-4, 55758-5 #### [facility] CLIA [id number] [address] [place] [address] [place] AMERICABody cawxqbyfdmy00.6 [degF]Normal [facility] HospitalComment on above:Order Comment: Specimen Type: BLOOD SPECIMEN Ordering Facility: [facility] Address: [address] [place], [place] [address]Performed By: #### 62683-4, 12672-3 #### [facility] CLIA [id number] [address] [place] [address] STATES OF AMERICACalcium.ionized (Bld) [Mass/Vol]1.23 mmol/LNormal1.08-1.30[facility] HospitalComment on above:Order Comment: Specimen Type: BLOOD SPECIMEN Ordering Facility: [facility] Address: [address] [place], [place] [address]Performed By: #### 81577-9, 18687-2 #### [facility] CLIA [id number] [address] [place] [address] OF AMERICACalcium.ionized adjusted to pH 7.4 (BldA) [Moles/Vol]1.16 mmol/LNormal1.08-1.30[facility] HospitalComment on above: Order Comment: Specimen Type: BLOOD SPECIMEN Ordering Facility: [facility] Address: [address] [place], [place] [address]Performed By: #### 92891-0, 89719-8 #### [facility] CLIA [id number] [address] [place] [address] [place] AMERICACarboxyhemoglobin (BldA) [Mass fraction]1.3 %Normal0.0-2.0[facility] HospitalComment on above:Order Comment: Specimen Type: BLOOD SPECIMEN Ordering Facility: [facility] Address: [address] [place], [place] [address]Result Comment: Carboxyhemoglobin Reference Range for Smokers: 2.0-8.0%Performed By: #### 23644-1, 84235-7 #### [facility] CLIA [id number] [address] [place] [address] [place] AMERICAChloride [Moles/Vol]104 mmol/LNormal 97-105[facility] HospitalComment on above:Order Comment: Specimen Type: BLOOD SPECIMEN Ordering Facility: [facility] Address: [address] [place], [place] [address]Performed By: #### 58107-8, 07774-1 #### [facility] CLIA [id number] [address] [place] [address] [place] AMERICACO2 (Bld) [Partial pressure]72 mm Hg Ihpn25-84Lksjqjxy HospitalComment on above:Order Comment: Specimen Type: BLOOD SPECIMEN Ordering Facility: [facility] Address: [address] [place], [place] [address]Performed By: #### 62151-8, 74678-9 #### [facility] CLIA [id number] [address] [place] [address] [place] AMERICAGlucose [Mass/Vol]88 mg/dLNormal 60-105[facility] HospitalComment on above:Order Comment: Specimen Type: BLOOD SPECIMEN Ordering Facility: [facility] Address: [address] [place], [place] [address]Performed By: #### 20089-8, 37654-9 #### [facility] CLIA [id number] [address] [place] [address] [place] AMERICAHCO3 (Bld) [Moles/Vol]34 mmol/LHigh 22-26[facility] HospitalComment on above:Order Comment: Specimen Type: BLOOD SPECIMEN Ordering Facility: [facility] Address: [address] [place], [place] [address]Performed By: #### 09648-8, 76383-1 #### [facility] CLIA [id number] [address] [place] [address] [place] AMERICAHematocrit (Bld) [Volume fraction] 38.4 %Low39.0-51.0[facility] HospitalComment on above:Order Comment: Specimen Type: BLOOD SPECIMEN Ordering Facility: [facility] Address: [address] [place], [place] [address]Performed By: #### 93231-2, 19084-6 #### [facility] CLIA [id number] [address] [place] [address] [place] AMERICAHemoglobin (Bld) [Mass/Vol]12.5 g/dL Low13.0-17.0[facility] HospitalComment on above:Order Comment: Specimen Type: BLOOD SPECIMEN Ordering Facility: [facility] Address: [address] [place], [place] [address]Performed By: #### 25815-1, 23247-8 #### [facility] CLIA [id number] [address] [place] [address] [place] AMERICALactate [Moles/Vol]0.9 mmol/LNormal 0.5-2.2Fs[facility] HospitalComment on above:Order Comment: Specimen Type: BLOOD SPECIMEN Ordering Facility: [facility] Address: [address] [place], [place] [address]Performed By: #### 45598-5, 95331-8 #### [facility] CLIA [id number] [address] [place] [address] [place] OF AMERICALITERS4 Liters/minNormalLong Bottom HospitalComment on above:Order Comment: Specimen Type: BLOOD SPECIMEN Ordering Facility: [facility] Address: [address] [place], [place] [address]Performed By: #### 93916-6, 16436-2 #### [facility] CLIA [id number] [address] [place] [address] [place] AMERICAMethemoglobin (Bld) [Mass fraction] 1.3 %Normal0.0-1.5Fs[facility] hospital HospitalComment on above:Order Comment: Specimen Type: BLOOD SPECIMEN Ordering Facility: [facility] Address: [address] [place], [place] [address]Performed By: #### 89554-8, 40936-3 #### [facility] CLIA [id number] [address] [place] [address] [facility] OF AMERICAO2 THERAPYNC = Nasal CannulaNormal [facility] HospitalComment on above:Order Comment: Specimen Type: BLOOD SPECIMEN Ordering Facility: [facility] Address: [address] [place], [place] [address]Performed By: #### 64825-6, 06636-2 #### [facility] CLIA [id number] [address] [place] [address] [place] AMERICAOxygen (Bld) [Partial pressure]73 mm GnTcv65-13Ujfabmyx HospitalComment on above:Order Comment: Specimen Type: BLOOD SPECIMEN Ordering Facility: [facility] Address: [address] [place], [place] [address]Performed By: #### 21010-6, 14255-3 #### [facility] CLIA [id number] [address] [place] [address] [place] AMERICAOxyhemoglobin (BldA) [Mass fraction] 91 %Cnc94-79OzefbznqPondville State HospitalComuniversity of michigan health on above:Order Comment: Specimen Type: BLOOD SPECIMEN Ordering Facility: [facility] Address: [address] [place], [place] [address]Performed By: #### 43541-5, 21410-6 #### [facility] CLIA [id number] [address] [place] [address] [place] AMERICApH (Bld)7.30 [pH]Low7.35-7.45 [facility] HospitalComment on above:Order Comment: Specimen Type: BLOOD SPECIMEN Ordering Facility: [facility] Address: [address] [place], [place] [address]Performed By: #### 00845-5, 17307-4 #### [facility] CLIA [id number] [address] [place] [address] [place] AMERICAPotassium [Moles/Vol]4.2 mmol/L Normal3.5-5.0[facility] [place] HospitalComment on above:Order Comment: Specimen Type: BLOOD SPECIMEN Ordering Facility: [facility] Address: [address] [place], [place] [address]Performed By: #### 13987-4, 13534-2 #### [facility] CLIA [id number] [address] [place] [address] [place] AMERICASodium [Moles/Vol]141 mmol/LNormal 136-144[facility] HospitalComment on above:Order Comment: Specimen Type: BLOOD SPECIMEN Ordering Facility: [facility] Address: [address] [place], [place] [address]Performed By: #### 37584-8, 08410-9 #### [facility] CLIA [id number] [address] [place] [address] [place] AMERICABase excess Calc (Bld) [Moles/Vol]5 mmol/LHigh0-2Fs[facility] hospital HospitalComment on above:Order Comment: Specimen Type: BLOOD SPECIMEN Ordering Facility: [facility] Address: [address] [place], [place] [address]Performed By: #### PTTAC #### [facility] [place] [id number] [address] [place] [address] [place] AMERICABody ezgylquxkmu24.6 [degF]Normal [facility] [place] HospitalComment on above:Order Comment: Specimen Type: BLOOD SPECIMEN Ordering Facility: [facility] Address: [address] [place], [place] [address]Performed By: #### PTTAC #### [facility] CLIA [id number] [address] [place] [address] [place] AMERICACalcium.ionized (Bld) [Mass/Vol]1.22 mmol/LNormal1.08-1.30[facility] HospitalComment on above:Order Comment: Specimen Type: BLOOD SPECIMEN Ordering Facility: [facility] Address: [address] [place], [place] [address]Performed By: #### PTTAC #### [facility] CLIA [id number] [address] [place] [address] [place] AMERICACalcium.ionized adjusted to pH 7.4 (BldA) [Moles/Vol]1.15 mmol/LNormal1.08-1.30[facility] HospitalComment on above: Order Comment: Specimen Type: BLOOD SPECIMEN Ordering Facility: [facility] Address: [address] [place], [place] [address]Performed By: #### PTTAC #### [facility] CLIA [id number] [address] [place] [address] [place] AMERICACarboxyhemoglobin (BldA) [Mass fraction]1.7 %Normal0.0-2.0[facility] HospitalComment on above:Order Comment: Specimen Type: BLOOD SPECIMEN Ordering Facility: [facility] Address: [address] [place], [place] [address]Result Comment: Carboxyhemoglobin Reference Range for Smokers: 2.0-8.0%Performed By: #### PTTAC #### [facility] CLIA [id number] [address] [place] [address] [place] AMERICAChloride [Moles/Vol]101 mmol/LNormal 97-105[facility] HospitalComment on above:Order Comment: Specimen Type: BLOOD SPECIMEN Ordering Facility: [facility] Address: [address] [place], [place] [address]Performed By: #### PTTAC #### [facility] [place] [id number] [address] [place] [address] [place] AMERICACO2 (Bld) [Partial pressure]70 mm Hg Xngp78-78Kkseypdq HospitalComment on above:Order Comment: Specimen Type: BLOOD SPECIMEN Ordering Facility: [facility] Address: [address] [place], [place] [address]Performed By: #### PTTAC #### [facility] CLIA [id number] [address] [place] [address] [place] AMERICAGlucose [Mass/Vol]210 mg/dLHigh 60-105[facility] [place] HospitalComment on above:Order Comment: Specimen Type: BLOOD SPECIMEN Ordering Facility: [facility] Address: [address] [place], [place] [address]Performed By: #### PTTAC #### [facility] CLIA [id number] [place] [address] [place] AMERICAHCO3 (Bld) [Moles/Vol]34 mmol/LHigh 22-26[facility] HospitalComment on above:Order Comment: Specimen Type: BLOOD SPECIMEN Ordering Facility: [facility] Address: [address] [place], [place] [address]Performed By: #### PTTAC #### [facility] CLIA [id number] [address] [place] [address] [place] AMERICAHematocrit (Bld) [Volume fraction] 37.5 %Low39.0-51.0[facility] HospitalComment on above:Order Comment: Specimen Type: BLOOD SPECIMEN Ordering Facility: [facility] Address: [address] [place], [place] [address]Performed By: #### PTTAC #### [facility] CLIA [id number] [address] [place] [address] [place] AMERICAHemoglobin (Bld) [Mass/Vol]12.2 g/dL Low13.0-17.0[facility] HospitalComment on above:Order Comment: Specimen Type: BLOOD SPECIMEN Ordering Facility: [facility] Address: [address] [place], [place] [address]Performed By: #### PTTAC #### [facility] CLIA [id number] [address] [place] [address] [place] AMERICALactate [Moles/Vol]1.4 mmol/LNormal 0.5-2.2[facility] HospitalComment on above:Order Comment: Specimen Type: BLOOD SPECIMEN Ordering Facility: [facility] Address: [address] [place], [place] [address]Performed By: #### PTTAC #### [facility] CLIA [id number] [address] [place] [address] [place] AMERICALITERS6 Liters/minNormalLong Bottom HospitalComment on above:Order Comment: Specimen Type: BLOOD SPECIMEN Ordering Facility: [facility] Address: [address] [place], [place] [address]Performed By: #### PTTAC #### [facility] IA [id number] [address] [place] [address] [place] AMERICAMethemoglobin (Bld) [Mass fraction] 0.7 %Normal0.0-1.5Fs[facility] HospitalComment on above:Order Comment: Specimen Type: BLOOD SPECIMEN Ordering Facility: [facility] Address: [address] [place], [place] [address]Performed By: #### PTTAC #### [facility] CLIA [id number] [address] [place] [address] [place] AMERICAO2 THERAPYNC = Nasal CannulaNormal [facility] HospitalComment on above:Order Comment: Specimen Type: BLOOD SPECIMEN Ordering Facility: [facility] Address: [address] [place], [place] [address]Performed By: #### PTTAC #### [facility] [place] [id number] [address] [place] [address] [place] AMERICAOxygen (Bld) [Partial pressure]85 mm [id number] HospitalComment on above:Order Comment: Specimen Type: BLOOD SPECIMEN Ordering Facility: [facility] Address: [address] [place], [place] [address]Performed By: #### PTTAC #### [facility] [place] [id number] [address] [place] [address] [place] AMERICAOxyhemoglobin (BldA) [Mass fraction] 94 %[id number] HospitalComment on above:Order Comment: Specimen Type: BLOOD SPECIMEN Ordering Facility: [facility] Address: [address] [place], [place] [address]Performed By: #### PTTAC #### [facility] IA [id number] [address] [place] [address] [place] AMERICApH (Bld)7.30 [pH]Low7.35-7.45 [facility] HospitalComment on above:Order Comment: Specimen Type: BLOOD SPECIMEN Ordering Facility: [facility] Address: [address] [place], [place] [address]Performed By: #### PTTAC #### [facility] CLIA [id number] [address] [place] [address] [place] AMERICAPotassium [Moles/Vol]4.0 mmol/L Normal3.5-5.0[facility] State HospitalComment on above:Order Comment: Specimen Type: BLOOD SPECIMEN Ordering Facility: [facility] Address: [address] [place], [place] [address]Performed By: #### PTTAC #### [facility] CLIA [id number] [address] [place] [address] [place] AMERICASodium [Moles/Vol]141 mmol/LNormal 136-144P[facility] State HospitalComment on above:Order Comment: Specimen Type: BLOOD SPECIMEN Ordering Facility: [facility] Address: [address] [place], [place] [address]Performed By: #### PTTAC #### [facility] CLIA [id number] [address] [place] [address] [place] AMERICABacteria Ur Culton 10-24-2023 Bacteria identified Cx Nom (U)ORGANISM ID: 1 >=100,000 CFU/ml Mixed microbiota No further workup. Mixed microbiota can be due to???urine???contamination with skin bacteria at time of collection or presence of a long-term urinary catheter. If a new culture is needed, please consider re-education of the patient on proper midstream collection technique or straight catheterization for???urine???collection.NormalLong Bottom HospitalComment on above:Performed By: #### 630-4 ####[facility] LABCL[facility] [id number] [place] [address] [place] AMERICABasic metabolic 2000 panelon 77-53-0727Szbin gap [Moles/Vol]11 mmol/LNormal9-18[facility] [place] Comment on above:Order Comment: Specimen Type: BLOOD SPECIMEN Ordering Facility: [facility] Address: [address] [place], [place] [address]Performed By: #### 84471-3, HSTNT #### [facility] CLIA [id number] [address] [place] [address] [place] AMERICACalcium [Mass/Vol]8.7 mg/dLNormal 8.5-10.2Fsaint vincent hospital HospitalComment on above:Order Comment: Specimen Type: BLOOD SPECIMEN Ordering Facility: [facility] Address: [address] [place], [place] [address]Performed By: #### 88495-8, HSTNT #### [facility] CLIA [id number] [place] [address] [place] AMERICAChloride [Moles/Vol]101 mmol/LNormal 97-105[facility] HospitalComment on above:Order Comment: Specimen Type: BLOOD SPECIMEN Ordering Facility: [facility] Address: [address] [place], [place] [address]Performed By: #### 24775-7, HSTNT #### [facility] CLIA [id number] [address] [place] [address] [place] AMERICACO2 [Moles/Vol]30 mmol/JEcufxn72-51 [facility] State HospitalComment on above:Order Comment: Specimen Type: BLOOD SPECIMEN Ordering Facility: [facility] Address: [address] [place], [place] [address]Performed By: #### 00016-5, HSTNT #### [facility] CLIA [id number] [address] [place] [address] [place] AMERICACreatinine [Mass/Vol]1.82 mg/dLHigh 0.73-1.22FaNew England Rehabilitation Hospital at LowellComment on above:Order Comment: Specimen Type: BLOOD SPECIMEN Ordering Facility: [facility] Address: [address] [place], [place] [address]Performed By: #### 91233-1, HSTNT #### [facility] CLIA [id number] [address] [place] [address] [place] AMERICACreatinine and Glomerular filtration rate.predicted panel (S/P/Bld)41 mL/min/1.73m???Low>=60FaNew England Rehabilitation Hospital at LowellComment on above:Order Comment: Specimen Type: BLOOD SPECIMEN Ordering Facility: [facility] Address: [address] [place], [place] [address]Result Comment: Estimated Glomerular Filtration Rate (eGFR) is [...] not accurately reflect actual GFR.Performed By: #### 03107-3, HSTNT #### [facility] CLIA [id number] [address] [place] [address] [place] AMERICAGlucose [Mass/Vol]229 mg/jLJrih86-12 [facility] HospitalComment on above:Order Comment: Specimen Type: BLOOD SPECIMEN Ordering Facility: [facility] Address: [address] [place], [place] [address]Result Comment: The [place] Diabetes Association (ADA) provides guidance for cutoff [...] Standards of Medical Care in Diabetes 2016, [place] [employer] Association. Diabetes Care. 2016.39(Suppl 1).Performed By: #### 39823-6, HSTNT #### [facility] CLIA [id number] [place] [address] [place] AMERICAPotassium [Moles/Vol]4.2 mmol/L Normal3.7-5.1FFederal [facility] Center, DevensComment on above:Order Comment: Specimen Type: BLOOD SPECIMEN Ordering Facility: [facility] Address: [address] [place], [place] [address]Performed By: #### 42078-0, HSTNT #### [facility] CLIA [id number] [address] [place] [address] [place] AMERICASodium [Moles/Vol]142 mmol/LNormal 136-144FaNew England Rehabilitation Hospital at LowellComment on above:Order Comment: Specimen Type: BLOOD SPECIMEN Ordering Facility: [facility] Address: [address] [place], [place] [address]Performed By: #### 75119-0, HSTNT #### [facility] CLIA [id number] [address] [place] [address] [place] AMERICAUrea nitrogen [Mass/Vol]58 mg/dLHigh 9-24[facility] HospitalComment on above:Order Comment: Specimen Type: BLOOD SPECIMEN Ordering Facility: [facility] Address: [address] [place], [place] [address]Performed By: #### 66948-5, HSTNT #### [facility] CLIA [id number] [place] [address] [place] AMERICACBC panel Auto (Bld)on 10-24-2023 Erythrocyte distribution width (RBC) [Ratio]16.4 %High11.5-15.0[facility] Comment on above:Order Comment: Specimen Type: BLOOD SPECIMEN Ordering Facility: [facility] Address: [address] [place], [place] [address]Performed By: #### 50542-0, 46262-5 #### [facility] CLIA [id number] [place] [address] [place] AMERICAHematocrit (Bld) [Volume fraction] 41.0 %Hnszrq98.0-51.0[facility] HospitalComment on above:Order Comment: Specimen Type: BLOOD SPECIMEN Ordering Facility: [facility] Address: [address] [place], [place] [address]Performed By: #### 07464-0, 23472-7 #### [facility] CLIA [id number] [address] [place] [address] [place] AMERICAHemoglobin (Bld) [Mass/Vol]12.4 g/dL Low13.0-17.0[facility] HospitalComment on above:Order Comment: Specimen Type: BLOOD SPECIMEN Ordering Facility: [facility] Address: [address] [place], [place] [address]Performed By: #### 94363-7, 97435-9 #### [facility] CLIA [id number] [address] [place] [address] (RBC) [Entitic mass]26.9 pg Yunmpz26.0-34.0[facility] HospitalComment on above:Order Comment: Specimen Type: BLOOD SPECIMEN Ordering Facility: [facility] Address: [address] [place], [place] [address]Performed By: #### 42640-5, 79160-2 #### [facility] CLIA [id number] [address] [place] [address] (RBC) [Mass/Vol]30.2 g/dLLow 30.5-36.0[facility] HospitalComment on above:Order Comment: Specimen Type: BLOOD SPECIMEN Ordering Facility: [facility] Address: [address] [place], [place] [address]Performed By: #### 38616-5, 59616-3 #### [facility] CLIA [id number] [address] [place] [address] (RBC) [Entitic vol]88.9 fLNormal 80.0-100.0[facility] HospitalComment on above:Order Comment: Specimen Type: BLOOD SPECIMEN Ordering Facility: [facility] Address: [address] [place], [place] [address]Performed By: #### 71618-9, 12930-7 #### [facility] CLIA [id number] [address] [place] [address] RBC (Bld) [#/Vol]10*3/uL Normal<0.01[facility] HospitalComment on above:Order Comment: Specimen Type: BLOOD SPECIMEN Ordering Facility: [facility] Address: [address] [place], [place] [address]Performed By: #### 22717-6, 34939-7 #### [facility] CLIA [id number] [address] [place], [place] [address]Platelet mean volume (Bld) [Entitic vol]8.8 fLLow9.0-12.7Fsaint vincent hospital HospitalComment on above:Order Comment: Specimen Type: BLOOD SPECIMEN Ordering Facility: [facility] Address: [address] [place], [place] [address]Performed By: #### 25031-4, 01037-2 #### [facility] CLIA [id number] [address]Platebaystate mary lane hospital (Bld) [#/Vol]240 10*3/uL Futaor477-914Igkhqowz HospitalComment on above:Order Comment: Specimen Type: BLOOD SPECIMEN Ordering Facility: [facility] Address: [address] [place], [place] [address]Performed By: #### 69562-2, 19910-0 #### [facility] CLIA [id number] [address] [place] [address] (d) [#/Vol]4.61 10*6/uLNormal 4.20-6.00[facility] HospitalComment on above:Order Comment: Specimen Type: BLOOD SPECIMEN Ordering Facility: [facility] Address: [address] [place], [place] [address]Performed By: #### 51408-6, 71302-4 #### [facility] CLIA [id number] [address] [place] [address] (d) [#/Vol]7.15 10*3/uLNormal 3.70-11.00[facility] HospitalComment on above:Order Comment: Specimen Type: BLOOD SPECIMEN Ordering Facility: [facility] Address: [address] [place], [place] [address]Performed By: #### 47520-4, 35566-9 #### [facility] CLIA [id number] [address] [place] [id number] [facility]PITALCONSULTon 82-49-2165CJZWDIVLDR ID: [id number] Author: NAUN COUCH MD Service: Nephrology Author [...] amputation admitted from home who presented to [facility] with complaints of worsening shortness of breath, bilateral lower extremity edema and ~ 10lb weight gain in the last few weeks. Patient reports multiple hospital admissions in 2023 at [facility] in [place] for fluid overload. He states he usually [...] w MEALS AND HS (more content not included)...[facility] ID: [id number] Author: FLOR BE RN Service: ? Author [...] foot. Patient goes to wound clinic in [place] for care last dressing used was Temi. [...] 10/24/2023 9:38 AM Wound Image Site Assessment Red;Timonium Nora-Wound Assessment Calloused Shape oval Wound Length [...] Review under the Scanned Docs tab in [employer]. The purpose of the photo(s) is to optimize the patient's medical care and allow (more content not included)...[facility] ID: [id number] Author: NERY MOTTA MD Service: Cardiovascular Medicine Author Type: Physician Type: Consults Filed: 10/24/2023 17:43 Note Text: [facility] CARDI[facility]ASCULAR MEDICINE CONSULT NOTE (Template ID [id number]) Nicole Lora [id number] PRIMARY SERVICE: Internal Medicine CONSULTING SERVICE: Cardiovascular Medicine: General Consults DATE OF ADMISSION: 10/23/2023 DATE OF CONSULT: 10/24/2023 REASON FOR CONSULT Elevated troponins HISTORY OF PRESENT ILLNESS Nicole Lora is a 63 year old male PMH of CKD 3, chronic respiratory failure, morbid obesity, insulin dependent diabetes, TC, Asthma, left forefoot amputation, lives in [place], who was admitted for volume overload. He [...] And metFORMIN 500 m (more content not included)...[facility] 02-27-1188YPNLUGL PRONO ID: [id number] Author: JOSE HARMON RPh Service: Pharmacy Author [...] have any questions, please contact pharmacy at [phone]. Estimated Creatinine Clearance: 60.4 mL/min (A) (based [...] 180.3 cm (5' 11 ) Jose Harmon [facility] October 24, 2023 3:09 AMNormalPondville State HospitalChloride ?Tm Ur-sCncon 10-24-2023 Chloride Unsp time (U) [Moles/Vol]61 mmol/ZLpjlus63-452Zyyjmjdf HospitalComment on above:Order Comment: Specimen Type: BLOOD SPECIMEN Ordering Facility: [facility] Address: [address] [place], [place] [address]Performed By: #### 89794-2, 61169-3 #### [facility] CLIA [id number] [address] [place] [address] [place] AMERICAD dimer FEU PPP-mCncon 10-24-2023 Fibrin D-dimer FEU (PPP) [Mass/Vol]2400 ng/mL FEUHigh<500[facility] Comment on above:Order Comment: Specimen Type: BLOOD SPECIMENOrdering Facility: [facility] Address:[address] [place] [address] Performed By: #### 44810-1, 67573-9, PTTAC ####[facility] [id number] [place] [address] [place] OF AMERICAECG 12 leadon 23-41-8023Fwijbelikjn Rate : 77 BPM Atrial Rate : 78 BPM P-R Interval : 180 ms QRS Duration : 97 ms Q-T Interval : 389 ms QTC Calculation(Bazett) : 441 ms Calculated P [place] : 53 degrees Calculated R [place] : -76 degrees Calculated T [place] : 65 degrees Sinus rhythm Left anterior fascicular block Abnormal ECG no stemi Confirmed by DARNELL YIN MD ([id number]), JACQUELINE Adams ([id number]) on 10/24/2023 10:36:37 AM NAME : NICOLE LORA PID : [id number] : 1960 Gender : Male Race : ORD : [id number] Procedure Date : Oct 23 2023 20:16:04 Edit Date : Oct 24 2023 10:36:39 Diagnosis: Sinus rhythm Left anterior fascicular block Abnormal ECG no stemi Confirmed by DARNELL YIN MD ([id number]), JACQUELINE Adams ([id number]) on 10/24/2023 10:36:37 AM Test Reason : Other - Specify Location : 402 : FVED fved55 Overread By : DARNELL YIN MD Edited By : JACQUELINE ROSALES Referred By : , Acquired by : [id number],CCFRadiology, Radiologist, MD - 10/24/2023 Ventricular Rate : 77 BPM Atrial Rate : 78 BPM P-R Interval : 180 ms QRS Duration : 97 ms Q-T Interval : 389 ms QTC Calculation(Bazett) : 441 ms Calculated P [place] : 53 degrees Calculated R [place] : -76 degrees Calculated T [place] : 65 degrees Sinus rhythm Left anterior fascicular block Abnormal ECG no stemi Confirmed by DARNELL YIN MD ([id number]), JACQUELINE Adams ([id number]) on 10/24/2023 10:36:37 AM NAME : NICOLE LORA PID : [id number] : 1960 Gender : Male Race : ORD : [id number] Procedure Date : Oct 23 2023 20:16:04 Edit Date : Oct 24 2023 10:36:39 Diagnosis: Sinus rhythm Left anterior fascicular block Abnormal ECG no stemi Confirmed by DARNELL YIN MD ([id number]), JACQUELINE Adams ([id number]) on 10/24/2023 10:36:37 AM Test Reason : Other - Specify Location : 402 : FVED fved55 Overread By : HUMPHREY LYMAN,[facility] Edited By : JACQUELINE ROSALES Referred By : , Acquired by : [id number], [facility] 12 leadOrdered By: Radiologist Radiology on [id number] Sci[employer] Work Phone: Fibrin D-dimer FEU (PPP) [Mass/Vol]on 10-24-2023 DIMER AGE-RELATED LOQRRI841 ng/mL FEUNormalLong Bottom HospitalComment on above: Order Comment: Specimen Type: BLOOD SPECIMENOrdering Facility: [facility] Address:[address] [place], [place] [address]Performed By: #### 86461- 7, 51103-4, PTTAC ####[facility] [id number] [place] [address] [place] AMERICAGas and Carbon monoxide panel (BldV) on 28-74-5940Kzmd excess Calc (BldV) [Moles/Vol]4 mmol/LHigh[address] Comment on above:Order Comment: Specimen Type: BLOOD SPECIMEN Ordering Facility: [facility] Address: [address] [place], [place] [address]Performed By: #### 61948-7, 71569-6 #### [facility] CLIA [id number] [address] [place] [address] [place] AMERICABody loyijmsyzxy28 [degF]Normal [facility] HospitalComment on above:Order Comment: Specimen Type: BLOOD SPECIMEN Ordering Facility: [facility] Address: [address] [place], [place] [address]Performed By: #### 01819-3, 63773-9 #### [facility] CLIA [id number] [address] [place] [address] [place] AMERICACalcium.ionized (Bld) [Mass/Vol]1.14 mmol/LNormal1.08-1.30FaNew England Rehabilitation Hospital at LowellComment on above:Order Comment: Specimen Type: BLOOD SPECIMEN Ordering Facility: [facility] Address: [address] [place], [place] [address]Performed By: #### 26878-6, 20236-3 #### [facility] CLIA [id number] [address] [place] [address] [place]ACalcium.ionized adjusted to pH 7.4 (BldA) [Moles/Vol]1.08 mmol/LNormal1.08-1.30Pondville State HospitalComment on above: Order Comment: Specimen Type: BLOOD SPECIMEN Ordering Facility: [facility] Address: [address] [place], [place] [address]Performed By: #### 44059-3, 67320-3 #### [facility] CLIA [id number] [address] [place] [address] [place] AMERICACarboxyhemoglobin (BldV) [Mass fraction]2.3 %High0.0-2.0FaNew England Rehabilitation Hospital at LowellComment on above:Order Comment: Specimen Type: BLOOD SPECIMEN Ordering Facility: [facility] Address: [address] [place], [place] [address]Result Comment: Carboxyhemoglobin Reference Range for Smokers: 2.0-8.0%Performed By: #### 27346-6, 81072-3 #### [facility] CLIA [id number] [address] [place] [address] [place] AMERICAChloride [Moles/Vol]103 mmol/LNormal 97-105FaNew England Rehabilitation Hospital at LowellComment on above:Order Comment: Specimen Type: BLOOD SPECIMEN Ordering Facility: [facility] Address: [address] [place], [place] [address]Performed By: #### 11865-6, 79764-8 #### [facility] CLIA [id number] [address] [place] [address] [place] AMERICACO2 (BldV) [Partial pressure]66 mm[Hg]Wqnd60-91Tcgxrgcx HospitalComment on above:Order Comment: Specimen Type: BLOOD SPECIMEN Ordering Facility: [facility] Address: [address] [place], [place] [address]Performed By: #### 72986-1, 91338-3 #### [facility] CLIA [id number] [address] [place] [address] [place] AMERICACO2 adjusted to patient's actual temperature (BldV) [Partial pressure]NormalFapaul a. dever state school HospitalComment on above: Order Comment: Specimen Type: BLOOD SPECIMEN Ordering Facility: [facility] Address: [address] [place], [place] [address]Performed By: #### 79633-8, 45150-2 #### [facility] CLIA [id number] [address] [place] [address] [place] AMERICAGlucose [Mass/Vol]222 mg/dLHigh 60-105[facility] HospitalComment on above:Order Comment: Specimen Type: BLOOD SPECIMEN Ordering Facility: [facility] Address: [address] [place], [place] [address]Performed By: #### 66935-8, 99019-8 #### [facility] CLIA [id number] [address] [place] [address] [place] AMERICAHCO3 (Bld) [Moles/Vol]31 mmol/LHigh 24-28[facility] HospitalComment on above:Order Comment: Specimen Type: BLOOD SPECIMEN Ordering Facility: [facility] Address: [address] [place], [place] [address]Performed By: #### 93351-6, 97940-1 #### [facility] CLIA [id number] [address] [place] [address] [place] AMERICAHematocrit (Bld) [Volume fraction] 38.5 %Low39.0-51.0[facility] HospitalComment on above:Order Comment: Specimen Type: BLOOD SPECIMEN Ordering Facility: [facility] Address: [address] [place], [place] [address]Performed By: #### 82736-0, 42198-3 #### [facility] CLIA [id number] [address] [place] [address] [place] AMERICAHemoglobin (Bld) [Mass/Vol]12.5 g/dL Low13.0-17.0[facility] HospitalComment on above:Order Comment: Specimen Type: BLOOD SPECIMEN Ordering Facility: [facility] Address: [address] [place], [place] [address]Performed By: #### 90363-7, 83055-2 #### [facility] CLIA [id number] [address] [place] [address] [place] AMERICALactate [Moles/Vol]0.7 mmol/LNormal 0.5-2.2Fsaint vincent hospital HospitalComment on above:Order Comment: Specimen Type: BLOOD SPECIMEN Ordering Facility: [facility] Address: [address] [place], [place] [address]Performed By: #### 95375-6, 64474-8 #### [facility] CLIA [id number] [address] [place] [address] [place] AMERICAMethemoglobin (Bld) [Mass fraction] 0.6 %Normal0.0-1.5Fsaint vincent hospital HospitalComment on above:Order Comment: Specimen Type: BLOOD SPECIMEN Ordering Facility: [facility] Address: [address] [place], [place] [address]Performed By: #### 69184-4, 75856-0 #### [facility] CLIA [id number] [address] [place] [address] [place] AMERICAO2 THERAPYRA=Room AirNormalLong Bottom HospitalComment on above:Order Comment: Specimen Type: BLOOD SPECIMEN Ordering Facility: [facility] Address: [address] [place], [place] [address]Performed By: #### 49273-7, 90871-6 #### [facility] CLIA [id number] [address] [place] [address] [place] AMERICAOxygen (BldV) [Partial pressure]176 mm[Hg]Osbj09-80Qahbvltf HospitalComment on above:Order Comment: Specimen Type: BLOOD SPECIMEN Ordering Facility: [facility] Address: [address] [place], [place] [address]Performed By: #### 85580-5, 67333-1 #### [facility] CLIA [id number] [address] [place] [address] [place] AMERICAOxygen adjusted to patient's actual temperature (BldV) [Partial pressure]NormalLong Bottom HospitalComment on above: Order Comment: Specimen Type: BLOOD SPECIMEN Ordering Facility: [facility] Address: [address] [place], [place] [address]Performed By: #### 65929-2, 45877-9 #### [facility] CLIA [id number] [address] [place] [address] [place] AMERICAOxygen saturation in Venous blood99 %Mqlo49-52Mbnylcnw HospitalComment on above:Order Comment: Specimen Type: BLOOD SPECIMEN Ordering Facility: [facility] Address: [address] [place], [place] [address]Performed By: #### 41173-6, 74496-0 #### [facility] CLIA [id number] [address] [place] [address] [place] AMERICAOxyhemoglobin (BldV) [Mass fraction] 96 %Bpnk73-50Hahebbhd HospitalComment on above:Order Comment: Specimen Type: BLOOD SPECIMEN Ordering Facility: [facility] Address: [address] [place], [place] [address]Performed By: #### 67401-9, 33310-9 #### [facility] CLIA [id number] [address] [place] [address] [place] OF AMERICApH (BldV)7.30 [pH]Low7.32-7.42 [facility] HospitalComment on above:Order Comment: Specimen Type: BLOOD SPECIMEN Ordering Facility: [facility] Address: [address] [place], [place] [address]Performed By: #### 21189-6, 50298-3 #### [facility] CLIA [id number] [address] [place] [address] [place] OF AMERICApH adjusted to patient's actual temperature (BldV)[facility] HospitalComment on above:Order Comment: Specimen Type: BLOOD SPECIMEN Ordering Facility: [facility] Address: [address] [place], [place] [address]Performed By: #### 68610-0, 97455-1 #### [facility] CLIA [id number] [address] [place] [address] [place] AMERICAPotassium [Moles/Vol]3.9 mmol/L Normal3.5-5.0[facility] HospitalComment on above:Order Comment: Specimen Type: BLOOD SPECIMEN Ordering Facility: [facility] Address: [address] [place], [place] [address]Performed By: #### 19057-1, 49240-5 #### [facility] CLIA [id number] [address] [place] [address] [place] AMERICASodium [Moles/Vol]140 mmol/LNormal 136-144[facility] HospitalComment on above:Order Comment: Specimen Type: BLOOD SPECIMEN Ordering Facility: [facility] Address: [address] [place], [place] [address]Performed By: #### 37075-9, 87571-7 #### [facility] CLIA [id number] [address] [place] [address] [place] AMERICAHIGH SENSITIVITY TROPONIN Ton 78-27-6404Hfilgbng T.cardiac High sensitivity method [Mass/Vol]153 ng/LHigh<12 [facility] HospitalComment on above:Order Comment: Specimen Type: BLOOD SPECIMENOrdering Facility: [facility] Address:[address] [place] [address] Comment: When assessing risk for acute coronary [...] day MACE.Performed By: #### HSTNT ####[facility] [id number] [place] [address] [place] AMERICATroponin T.cardiac High sensitivity method [Mass/Vol]152 ng/LHigh<12[facility] HospitalComment on above: Order Comment: Specimen Type: BLOOD SPECIMENOrdering Facility: [facility] Address:[address] [place], [place] [address]Result Comment: When assessing risk for acute coronary [...] risk for 30 day MACE.Performed By: #### 16241-0, HSTNT ####[facility]IA [id number] [place] [address] [facility]ITALHISTORY PHYSICALon 93-01-1253LOJPBOX PHYSICALHNO ID: [id number] Author: TAY STEWART MD Service: General Internal [...] content not included)...[facility] HISTORY PHYSICALHNO ID: [id number] Author: JUDI LOERA PA Service: General Internal Medicine Author Type: Physician Electroencephalographic Technician Type: H&P Filed: 10/24/2023 02:27 Note Text: [...] 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 The patient states he's [...] abdominal pain, constipation, d (more content not included)...[facility] HospitalHbA1c (Bld)on 38-52-2943Bedyzoo glucose Estimated from glycated hemoglobin (Bld) [Mass/Vol]240 mg/dLNormalPondville State HospitalComment on above:Order Comment: Specimen Type: BLOOD SPECIMENOrdering Facility: [facility] Address:[address] [place], [place] [address]Result Comment: eAG: (Estimated average glucose) is a calculated value from HgbA1c and is solar manufacturer's representative of the average blood glucose level in the last 2-3 month period.Performed By: #### 64806-9 ####[facility] LABIA [id number] [place] [address] [place] YBUICKJFzM1z (Bld) [Mass fraction]10.0 %High4.3-5.6FFederal Medical Center, DevensComment on above:Order Comment: Specimen Type: BLOOD SPECIMENOrdering Facility: [facility] Address:[address] [place], [place] [address]Result Comment: [place] Diabetes [employer] guidelines indicate that patients with HgbA1c in the range 5.7-6.4% are at increased risk for development of diabetes, and intervention by lifestyle modification may be beneficial. HgbA1c greater or equal to 6.5% is considered diagnostic of diabetes.Performed By: #### 28008-4 ####[facility] LABIA [id number] [place] [address] [place]ICAN LUNG VENT / PERF VQon 11-37-9431EQ LUNG VENT / PERF VQ* * *Final [...] - IMPRESSION: LOW PROBABILITY OF PULMONARY EMBOLISM. Geospatial Program Management Officer: PSCB Transcribe Date/Time: Oct 24 2023 2:27P Dictated by : CAT LUO MD This examination was interpreted and the report reviewed and electronically signed by: CAT LUO MD on Oct 24 2023 2:29PM EST [id number] England Sinai Hospital [id number] PROGHNO ID: [id number] Author: SLADE MCMILLAN, RAFAEL Service: ? Author Type: Registered Nurse Type: Nursing Progress Note Filed: 10/24/2023 23:50 Note Text: 2118: page house to delia olmstead pt pCO2 came back 72. 2143: raymon huerta miller at bedside states she will talk to ICU team and go from there 2348: pt transferred to MICU, report given to RN.[facility] ID: [id number] Author: GUADALUPE ANGEL RN Service: Nursing Author Type: Registered Nurse Type: Nursing Progress Note Filed: 10/24/2023 18:32 Note Text: Other: Late entry for 829, decreased oxygen to 5L NC, baseline is 4L NC at home. 1230: Heparin gtt discontinued, ( no cardiology intervention to be done at this time) diet order placed 1700: urgent pCO2 of 70. Updated CORPORATE ASSOCIATE via secure chat. 1715 oxygen turned to 4.5 L per resp recommendation radiological defense officer paged 1745: House office aware and into talk with patient. Will reach out to ICU for recommendations, sating 88-90 on 4.5 L 1830: New orders to repeat ABG's again at 2100[facility] ID: [id number] Author: ANIA VAZQUEZ RN Service: ? Author Type: Registered Nurse Type: Nursing Progress Note Filed: 10/24/2023 03:26 Note Text: 0223- secure chat with HARPAL Garcia, pt has STAT order for echo, ok to be done tommorow, does not need to be done at this timeV[facility] ID: [id number] Author: SLADE MCMILLAN, RAFAEL Service: ? Author Type: Registered Nurse Type: Nursing Progress Note Filed: 10/24/2023 04:15 Note Text: 0304: [facility] pt MARINA came back 152. 0405: [facility] pt pulse ox keep dropping to 85-87 and he is on 6L of O2. he would jump up to 95 then back down and sustaining at 88%. He denies SOB. 0412: called back form , new orders put in.[facility] ID: [id number] Author: ANIA VAZQUEZ, RAFAEL Service: ? Author Type: Registered Nurse Type: Nursing Progress Note Filed: 10/24/2023 01:27 Note Text: Transfer Note: PATIENT NAME: Nicole Lora Patient Location: [place] [address] [address] Room: [place] [address] Patient transferred into room/unit PK322 from the ED in stable condition. Actions taken: No futher actions taken at this time. Will continue to monitor and check with patient.[facility] HospitalOsmolality SerPlon 10-24-2023 Osmolality [Osmolality]316 mosm/dvBtdb260-579Mkaxmihv HospitalComment on above: Order Comment: Specimen Type: BLOOD SPECIMEN Ordering Facility: [facility] Address: [address] [place], [place] [address]Performed By: #### PTTAC #### [facility] CLIA [id number] [address] [place] [address] [place] AMERICAOsmolality Uron 38-81-7246Nrjnkjdohc (U) [Osmolality]343 mosm/idBejjob35-4207Efnzuzce HospitalComment on above:Order Comment: Specimen Type: BLOOD SPECIMEN Ordering Facility: [facility] Address: [address] [place], [place] [address]Performed By: #### 99535-9, 49365-5 #### [facility] CLIA [id number] [address] [place] [address] [place] AMERICAPT panel Coag (PPP)on 86-31-1226PZV Coag (PPP) [Relative time]1.0 {INR}Normal0.9-1.3Fsaint vincent hospital HospitalComment on above:Order Comment: Specimen Type: BLOOD SPECIMENOrdering Facility: [facility] Address:[address] [place], [place] [address]Result Comment: Vitamin K Antagonist (VKA) Therapeutic Range: INR 2 to 3 (Target INR of 2.5) Note: For patients treated with VKA drugs, such as warfarin, the [place] [employer]icians 2012 Guideline recommends [...] Chest 2012, 141:7S-47S Sheri RA, et al. [facility] 2017, 70: 252-289Performed By: #### 22056-1, 45975-8, PTTAC ####[facility]ORYCLIA [id number] [place] [address] [place] AMERICAPT Coag (PPP) [Time]10.9 sNormal9.7-13.0[facility] HospitalComment on above:Order Comment: Specimen Type: BLOOD SPECIMENOrdering Facility: [facility] Address:[address] [place] [id number] By: #### 94079-5, 26494-4, PTTAC ####[facility]ORYCLIA [id number] [place] [address] [place] AMERICAPTT, ANTICOAGULANT THERAPYon 62-42-9619nPNN Coag (PPP) [Time]31.1 aQejiky09.0-32.4 [facility] HospitalComment on above:Order Comment: Specimen Type: BLOOD SPECIMEN Ordering Facility: [facility] Address: [address] [place], [place] [address]Performed By: #### PTTAC #### [facility] CLIA [id number] [address] [place] [address] [place] [facility] HOSPITALaPTT Coag (PPP) [Time]28.0 sNormal 23.0-32.4Fsaint vincent hospital HospitalComment on above:Order Comment: Specimen Type: BLOOD SPECIMENOrdering Facility: [facility] Address:[address] [place], [place] [address]Performed By: #### 01106-7, 23201-1, PTTAC ####[facility]ORYCL[facility] [id number] [place] [address] [place] AMERICAPotassium ?Tm Ur-sCncon 65-98-6623Fkzyrkuxw Unsp time (U) [Moles/Vol] 25.9 mmol/OLkmtcy76.0-160.0[facility] HospitalComment on above:Order Comment: Specimen Type: BLOOD SPECIMEN Ordering Facility: [facility] Address: [address] [place], [place] [address]Performed By: #### PTTAC #### [facility] IA [id number] [address] [place] [address] STATES OF AMERICAProt/Creat Uron 10-24-2023 Protein/Creatinine (U) [Mass ratio]1.09 mg/mgHigh<0.15[facility] HospitalComment on above:Order Comment: Specimen Type: BLOOD SPECIMEN Ordering Facility: [facility] Address: [address] [place], [place] [address]Result Comment: Adult Proteinuria Categories: <0.15 mg/mg is considered normal to mildly increased 0.15 - 0.50 mg/mg is considered moderately increased >0.50 mg/mg is considered severely increased KDIGO. (2013). KDIGO 2012 Clinical Practice Guideline for the Evaluation and Management of Chronic Kidney Disease. Official Journal of the International Society of Nephrology, 3(1), 1-150.Performed By: #### PTTAC #### [facility] CLIA [id number] STATES OF AMERICAProtein/Creatinine (U) [Mass ratio] on 72-20-1622Rocyrhsepy (U) [Mass/Vol]43.3 mg/aXJsboen49.0-300.0[facility] HospitalComment on above:Order Comment: Specimen Type: BLOOD SPECIMEN Ordering Facility: [facility] Address: [address] [place], [place] [address]Performed By: #### PTTAC #### [facility] CLIA [id number] [address] [place] [address] STATES OF AMERICAProtein (U) [Mass/Vol]47 mg/dLHigh 0-20[facility] HospitalComment on above:Order Comment: Specimen Type: BLOOD SPECIMEN Ordering Facility: [facility] Address: [address] [place], [place] [address]Performed By: #### PTTAC #### [facility] CLIA [id number] [address] [place] [address] [place] AMERICASodium ?Tm Ur-sCncon 10-24-2023 Sodium Unsp time (U) [Moles/Vol]61 mmol/IXfhgbl37-536Hcnmlwvm HospitalComment on above:Order Comment: Specimen Type: BLOOD SPECIMEN Ordering Facility: [facility] Address: [address] [place], [place] [address]Performed By: #### PTTAC #### [facility] CLIA [id number] [address] [place] [address] [place] AMERICATHERAPY NTon 28-48-9322CIFTDGU NTHNO ID: [id number] Author: CATHIE DOMÍNGUEZ PT Service: Physical Therapy Author Type: Physical Therapist Type: Therapy (PT/OT/Speech/Resp) Filed: 10/24/2023 12:05 Note Text: Physical Therapy Evaluation Summary SERVICE DATE: 10/24/2023 SERVICE TIME: 908 to 931 ROOM: [place] [address] PT 6 Clicks Score: 20 DISCHARGE RECOMMENDATIONS [...] See Comment Comments: Apt 1st level In [place], [place] Assistance Available: Part-Time, Other: See Comment [...] independently prior to admit, and drives. Per Imperator, Pt has been in and out of hospitals for the past six weeks. . Pt has five children in the area, and reported they check him daily. SUBJECTIVE I'm uncomfortable THERAPY DIAGNOSIS Reduced mobility-other, Muscle Weakness (generalized), General symptoms and signs-other TREATMENT INTERVENTIONS Evaluation, Gait Training (68182) Timed Code Treatment (minutes): 8 Skilled Treatment [...] Lora DATE: October 24, 2023 TIME: 12:05 [facility] NTHNO ID: [id number] Author: LUZMA AVALOS, OTR/L Service: Occupational Therapy Author Type: Occupational Therapist Type: Therapy (PT/OT/Speech/Resp) Filed: 10/24/2023 12:02 Note Text: Occupational Therapy Evaluation Summary SERVICE DATE: 10/24/2023 SERVICE TIME: 839 to 904 ROOM: [place] [address] OT 6 Clicks Score: 19 SOB, BLE Edema Rt > Left, Elevated troponin, Fluid Overload. Pt Presents With Multiple Recent Hospital Admits. DISCHARGE RECOMMENDATIONS Home Anticipated Discharge Needs: Physical Assist at Home, Equipment Physical Assist at Home for: Transportation, Shopping, Laundry, Cleaning Recommended Discharge Equipment: Grab Bars-Shower, Hand Held Shower, Long Handled Shoe Horn, Long Handled Sponge, Wheeled Walker, Accordion Maker, Shower Chair ASSESSMENT Response to Therapy Interventions: [...] See Comment Comments: Apt 1st level In [place], [place] Assistance Available: Part-Time, Other: See Comment [...] independently prior to admit, and drives. Per [facility], Pt has been in and [...] (generalized) TREATMENT INTERVENTIONS Evaluation, Self Mcc Management (95907) Timed Code Treatment (minutes): 10 Skilled Treatment Time (minutes): 25 TRAINING AND EDUCATION PROVIDED Bed Mobility, Benefits of In-Hospital Mobility, Discharge Planning, Edema Management, Disease Specific Education, Energy Conservation, Expected Functional Level, Insight into Deficits, Positioning, Precautions/Restrictions, Role of Occupational Therapy, Safety/Judgment, Standing Balance to Improve Phelps with ADLs/Self-Care, Transfer - Bed to Chair, [...] physical assistance. Rehab Po (more content not included)...NormalLong Bottom HospitalURINALYSIS, REFLEX MICROSCOPICon 53-79-3231Uagxxlyp LM.HPF (Urine sed) [#/Area]RareAbnormalNone SeenLong Bottom HospitalComment on above:Order Comment: Specimen Type: BLOOD SPECIMEN [facility]ing Facility: [facility] Address: [address] [place], [place] [address]Performed By: #### 48407-8, 43506-9 #### [facility] CLIA [id number] [address] [place] [address] [place] AMERICABilirubin Ql (U)NegativeNormal NegativeLong Bottom HospitalComment on above:Order Comment: Specimen Type: BLOOD SPECIMEN Ordering Facility: [facility] Address: [address] [place], [place] [address]Performed By: #### 90926-4, 72523-8 #### [facility] CLIA [id number] [address] [place] [address] [place] AMERICAClarity (Unsp spec)ClearNormalClear [facility] HospitalComment on above:Order Comment: Specimen Type: BLOOD SPECIMEN Ordering Facility: [facility] Address: [address] [place], [place] [address]Performed By: #### 10913-1, 69589-3 #### [facility] CLIA [id number] [address] [place] [address] [place] AMERICAColor (U)Light YellowNormalYellow [facility] HospitalComment on above:Order Comment: Specimen Type: BLOOD SPECIMEN Ordering Facility: [facility] Address: [address] [place], [place] [address]Performed By: #### 53223-1, 96177-1 #### [facility] CLIA [id number] [address] [place] [address] [place] AMERICAGlucose Test strip (U) [Mass/Vol] TraceNormalTrace, NegativeLong Bottom HospitalComment on above:Order Comment: Specimen Type: BLOOD SPECIMEN [facility]ing Facility: [facility] Address: [address] [place], [place] [address]Performed By: #### 23409-2, 34982-4 #### [facility] CLIA [id number] [address] [place] [address] [place] [facility] HOSPITALHemoglobin Ql (U)1+AbnormalNegative, TraceFairmercy health spring[facility] HospitalComment on above:Order Comment: Specimen Type: BLOOD SPECIMEN Ordering Facility: [facility] Address: [address] [place], [place] [address]Performed By: #### 61090-5, 88995-1 #### [facility] CLIA [id number] [address] [place] [address] [place] AMERICAHyaline casts (Urine sed) [#/Area]4- 10 /LPFAbnormal0 /LPFFairmercy health springfield regional medical center HospitalComment on above:Order Comment: Specimen Type: BLOOD SPECIMEN [facility]ing Facility: [facility] Address: [address] [place], [place] [address]Performed By: #### 66210-1, 04047-0 #### [facility] CLIA [id number] [address] [place] [address] [place] AMERICAKetones Ql (U)NegativeNormal Negative, TraceLong Bottom HospitalComment on above:Order Comment: Specimen Type: BLOOD SPECIMEN [facility]ing Facility: [facility] Address: [address] [place], [place] [address]Performed By: #### 61351-8, 02953-8 #### [facility] CLIA [id number] [address] [place] [address] [place] AMERICALeukocyte esterase Test strip Ql (U) 500 Moira/uLAbnormalNegative, 25 Moira/uLFairmercy health springfield regional medical center HospitalComment on above:Order Comment: Specimen Type: BLOOD SPECIMEN [facility]ing Facility: [facility] Address: [address] [place], [place] [address]Performed By: #### 91550-0, 72974-7 #### [facility] CLIA [id number] [address] [place] [address] [place] AMERICANitrite Ql (U)NegativeNormalNegative [facility] HospitalComment on above:Order Comment: Specimen Type: BLOOD SPECIMEN [facility]ing Facility: [facility] Address: [address] [place], [place] [address]Performed By: #### 52552-9, 41575-7 #### [facility] CLIA [id number] [address] [place] [address] STATES [facility] HOSPITALpH (U)5.5 [pH]Normal5.0-8.0[facility] HospitalComment on above:Order Comment: Specimen Type: BLOOD SPECIMEN [facility]ing Facility: [facility] Address: [address] [place], [place] [address]Performed By: #### 90502-1, 72013-9 #### [facility] CLIA [id number] [address] [place] [address] [place] [facility] HOSPITALProtein (U) [Mass/Vol]1+Abnormal Trace, NegativeFapaul a. dever state school HospitalComment on above:Order Comment: Specimen Type: BLOOD SPECIMEN [facility]ing Facility: [facility] Address: [address] [place], [place] [address]Performed By: #### 60469-0, 89627-4 #### [facility] CLIA [id number] [address] [place], [place] [address] LM.HPF (Urine sed) [#/Area] /[HPF]Abnormal0-3 /HPFFapaul a. dever state school HospitalComment on above:Order Comment: Specimen Type: BLOOD SPECIMEN [facility]ing Facility: [facility] Address: [address] [place], [place] [address]Performed By: #### 84618-4, 97831-2 #### [facility] CLIA [id number] [address] [place] [address] [place] AMERICASpecific gravity (U) [Rel density] 1.914Iwifea8.005-1.030[facility] HospitalComment on above:Order Comment: Specimen Type: BLOOD SPECIMEN [facility]ing Facility: [facility] Address: [address] [place], [place] [address]Performed By: #### 20965-8, 08901-6 #### [facility] CLIA [id number] [address] [place] [address] [place] AMERICAUrobilinogen Ql (U)NormalNormal NormalLong Bottom HospitalComment on above:Order Comment: Specimen Type: BLOOD SPECIMEN [facility]ing Facility: [facility] Address: [address] [place], [place] [address]Performed By: #### 22268-7, 36393-7 #### [facility] CLIA [id number] [address] [place] [address] [place] AMERICAWBC LM.HPF (Urine sed) [#/Area]11-25 /HPFAbnormal0-5 /HPFFapaul a. dever state school HospitalComment on above:Order Comment: Specimen Type: BLOOD SPECIMEN [facility]ing Facility: [facility] Address: [address] [place], [place] [address]Performed By: #### 21797-3, 95195-8 #### [facility] CLIA [id number] [address] [place] [address] [place] AMERICAUS KIDNEY/BLADDERon 83-18-5860UJ KIDNEY/BLADDER* * *Final Report* * * DATE OF EXAM: Oct 24 2023 4:59PM [facility] 1055 - KIDNEY/BLADDER / PROCEDURE REASON: Kidney [...] Otherwise limited assessment especially on the left. Geospatial Program Management Officer: PSCErika Transcribe Date/Time: Oct 25 2023 7:19A Dictated by : KASHIF PIERSON MD This examination was interpreted and the report reviewed and electronically signed by: KASHIF PIERSON MD on Oct 25 2023 7:21AM EST [id number] Queen of Peace Hospital 22-34-5121MDYNCT HEALTHHNO ID: [id number] Author: LI WEN RDMS Service: Radiology Author Type: Healthcare Sales Representative Type: [facility] Filed: 10/23/2023 18:11 Note Text: Radiology [...] PATIENT PRESENTS WITH AN IMPLANTABLE OR ATTACHED BLUNGER: No RADIOLOGY DEPARTMENT: Ultrasound PERIPHERAL IV DATA: Not applicable SIGNED BY: Li Wen RDMS October 23, 2023 6:10 [facility] ID: [id number] Author: MALOU NINO RT(R) Service: Radiology Author Type: Technologist Type: [facility] Filed: 10/23/2023 17:32 Note Text: Radiology Service [...] PATIENT PRESENTS WITH AN IMPLANTABLE OR ATTACHED BLUNGER: No RADIOLOGY DEPARTMENT: General X-ray: Exam(s) Completed: Chest X-Ray PERIPHERAL IV DATA: Not applicable SIGNED BY: Malou Nino RT(R) October 23, 2023 5:32 PMNormalSpringfield Hospital Medical Center W Auto Differential panel (Bld) on 04-40-2392Dvwvrjicd (Bld) [#/Vol]10*3/uLNormal<0.11[facility] HospitalComment on above:Order Comment: Specimen Type: BLOOD SPECIMEN [facility]ing Facility: [facility] Address: [address] [place], [place] [address]Performed By: #### 65242-0, 01782-9 #### [facility] CLIA [id number] [address] [place], [place] [address] [place] AMERICABasophils/100 WBC (Bld)0.3 %Normal [facility] HospitalComment on above:Order Comment: Specimen Type: BLOOD SPECIMEN [facility]ing Facility: [facility] Address: [address] [place] [address]Performed By: #### 01109-8, 35551-6 #### [facility] CLIA [id number] [address] [place] [address] [place] OF AMERICADifferential cell count method Nom (Bld)AutoNormalPondville State HospitalComment on above:Order Comment: Specimen Type: BLOOD SPECIMEN Ordering Facility: [facility] Address: [address] [place], [place] [address]Performed By: #### 60458-7, 92259-0 #### [facility] CLIA [id number] [address] [place] [address] [place] AMERICAEosinophils (Bld) [#/Vol]0.27 10*3/uLNormal<0.46[facility] HospitalComment on above:Order Comment: Specimen Type: BLOOD SPECIMEN Ordering Facility: [facility] Address: [address] [place], [place] [address]Performed By: #### 72489-6, 58800-7 #### [facility] CLIA [id number] [address] [place], [place] [address] [place] AMERICAEosinophils/100 WBC (Bld)3.8 %Normal [facility] HospitalComment on above:Order Comment: Specimen Type: BLOOD SPECIMEN Ordering Facility: [facility] Address: [address] [place], [place] [address]Performed By: #### 05661-6, 38252-2 #### [facility] CLIA [id number] [address] [place] [address] [place] AMERICAErythrocyte distribution width (RBC) [Ratio]16.3 %High11.5-15.0[facility] HospitalComment on above:Order Comment: Specimen Type: BLOOD SPECIMEN Ordering Facility: [facility] Address: [address] [place], [place] [address]Performed By: #### 64097-4, 00521-7 #### [facility] CLIA [id number] [address] [place] [address] [place] AMERICAHematocrit (Bld) [Volume fraction] 40.6 %Iyxejv10.0-51.0[facility] HospitalComment on above:Order Comment: Specimen Type: BLOOD SPECIMEN Ordering Facility: [facility] Address: [address] [place], [place] [address]Performed By: #### 31570-5, 24321-4 #### [facility] CLIA [id number] [address] [place] [address] [place] AMERICAHemoglobin (Bld) [Mass/Vol]12.4 g/dL Low13.0-17.0[facility] HospitalComment on above:Order Comment: Specimen Type: BLOOD SPECIMEN Ordering Facility: [facility] Address: [address] [place], [place] [address]Performed By: #### 45611-8, 50699-7 #### [facility] CLIA [id number] [address] [place] [address] [place] AMERICAImmature granulocytes (Bld) [#/Vol] 0.04 10*3/uLNormal<0.10[facility] HospitalComment on above:Order Comment: Specimen Type: BLOOD SPECIMEN Ordering Facility: [facility] Address: [address] [place], [place] [address]Performed By: #### 41087-6, 21301-0 #### [facility] CLIA [id number] [address] [place] [address] [place] AMERICAImmature granulocytes/100 WBC (Bld) 0.6 %NormalLong Bottom HospitalComment on above:Order Comment: Specimen Type: BLOOD SPECIMEN Ordering Facility: [facility] Address: [address] [place], [place] [address]Performed By: #### 90822-8, 96799-4 #### [facility] CLIA [id number] [address] [place] [address] [place] AMERICALymphocytes (Bld) [#/Vol]1.04 10*3/uLNormal1.00-4.00[facility] HospitalComment on above:Order Comment: Specimen Type: BLOOD SPECIMEN Ordering Facility: [facility] Address: [address] [place], [place] [address]Performed By: #### 00209-2, 10190-0 #### [facility] CLIA [id number] [address] [place] [address] [place] AMERICALymphocytes/100 WBC (Bld)14.7 % NormalLong Bottom HospitalComment on above:Order Comment: Specimen Type: BLOOD SPECIMEN Ordering Facility: [facility] Address: [address] [place], [place] [address]Performed By: #### 68405-9, 25714-8 #### [facility] CLIA [id number] [address] [place] [address] (RBC) [Entitic mass]27.1 pg Dtkzkn71.0-34.0[facility] HospitalComment on above:Order Comment: Specimen Type: BLOOD SPECIMEN Ordering Facility: [facility] Address: [address] [place], [place] [address]Performed By: #### 36828-2, 62691-5 #### [facility] CLIA [id number] [address] [place] [address] (RBC) [Mass/Vol]30.5 g/dLNormal 30.5-36.0[facility] HospitalComment on above:Order Comment: Specimen Type: BLOOD SPECIMEN Ordering Facility: [facility] Address: [address] [place], [place] [address]Performed By: #### 30084-0, 82654-9 #### [facility] CLIA [id number] [address] [place] [address] [place] AMERICAMCV (RBC) [Entitic vol]88.6 fLNormal 80.0-100.0[facility] HospitalComment on above:Order Comment: Specimen Type: BLOOD SPECIMEN Ordering Facility: [facility] Address: [address] [place], [place] [address]Performed By: #### 57939-4, 59906-8 #### [facility] CLIA [id number] [address] [place] [address] [place] AMERICAMonocytes (Bld) [#/Vol]0.74 10*3/uL Normal<0.87[facility] HospitalComment on above:Order Comment: Specimen Type: BLOOD SPECIMEN Ordering Facility: [facility] Address: [address] [place] [address]Performed By: #### 80492-5, 64893-0 #### [facility] CLIA [id number] [address] [place] [address] [place] AMERICAMonocytes/100 WBC (Bld)10.4 %Normal [facility] State HospitalComment on above:Order Comment: Specimen Type: BLOOD SPECIMEN Ordering Facility: [facility] Address: [address] [place], [place] [address]Performed By: #### 09329-1, 90745-8 #### [facility] CLIA [id number] [address] [place] [address] [place] AMERICANeutrophils (Bld) [#/Vol]4.98 10*3/uLNormal1.45-7.50[facility] HospitalComment on above:Order Comment: Specimen Type: BLOOD SPECIMEN Ordering Facility: [facility] Address: [address] [place], [place] [address]Performed By: #### 68269-2, 51209-4 #### [facility] CLIA [id number] [address] [place] [address] [place] AMERICANeutrophils/100 WBC (Bld)70.2 % NormalLong Bottom HospitalComment on above:Order Comment: Specimen Type: BLOOD SPECIMEN Ordering Facility: [facility] Address: [address] [place], [place] [address]Performed By: #### 93351-1, 66603-2 #### [facility] CLIA [id number] [address] [place] [address] [place] AMERICANucleated RBC (Bld) [#/Vol]10*3/uL Normal<0.01[facility] HospitalComment on above:Order Comment: Specimen Type: BLOOD SPECIMEN Ordering Facility: [facility] Address: [address] [place], [place] [address]Performed By: #### 88771-8, 66246-4 #### [facility] CLIA [id number] [address] [place] [address] [place] AMERICANucleated RBC/100 WBC (Bld) [Ratio] 0.0 /100 WBCNormalLong Bottom HospitalComment on above:Order Comment: Specimen Type: BLOOD SPECIMEN Ordering Facility: [facility] Address: [address] [place], [place] [address]Performed By: #### 55999-5, 98025-1 #### [facility] CLIA [id number] [address] [place] [address] [place] AMERICAPlatelet mean volume (Bld) [Entitic vol]8.9 fLLow9.0-12.7Fsaint vincent hospital HospitalComment on above:Order Comment: Specimen Type: BLOOD SPECIMEN Ordering Facility: [facility] Address: [address] [place], [place] [address]Performed By: #### 71993-0, 57239-0 #### [facility] CLIA [id number] [address] [place] [address] [place] AMERICAPlatelets (Bld) [#/Vol]220 10*3/uL Hmobbq948-528Yvnpmpdz HospitalComment on above:Order Comment: Specimen Type: BLOOD SPECIMEN Ordering Facility: [facility] Address: [address] [place] [address]Nslyrbrcx By: #### 99586-9, 92366-8 #### [facility] CLIA [id number] [address] [place], [place] [address]RB (Bld) [#/Vol]4.58 10*6/uLNormal 4.20-6.00[facility] HospitalComment on above:Order Comment: Specimen Type: BLOOD SPECIMEN Ordering Facility: [facility] Address: [address] [place], [place] [address]Performed By: #### 76323-8, 34531-3 #### [facility] CLIA [id number] [address] [place], [place] [address] (Bld) [#/Vol]7.09 10*3/uLNormal 3.70-11.00[facility] HospitalComment on above:Order Comment: Specimen Type: BLOOD SPECIMEN Ordering Facility: [facility] Address: [address] [place], [place] [address]Performed By: #### 14904-2, 33941-0 #### [facility] CLIA [id number] [address] [place] [address] AMERICAComprehensive metabolic 2000 panelon 69-82-7065Zxqcnbb [Mass/Vol]3.5 g/dLLow3.9-4.9[facility] HospitalComment on above:Order Comment: Specimen Type: BLOOD SPECIMEN Ordering Facility: [facility] Address: [address] [place], [place] [address]Performed By: #### HSTNT, 3016-3, 34988-6, 16026-9 #### [facility] CLIA [id number] [address] [place], [place] [address] [facility]ITALALP [Catalytic activity/Vol]112 U/L Ghlsjo96-871Iabswuek HospitalComment on above:Order Comment: Specimen Type: BLOOD SPECIMEN Ordering Facility: [facility] Address: [address] [place], [place] [address]Performed By: #### HSTNT, 3016-3, 03700-9, 09993-3 #### [facility] CLIA [id number] [place] [address] [place] AMERICAALT [Catalytic activity/Vol]19 U/L Ydgczs65-60Fkgwctwc HospitalComment on above:Order Comment: Specimen Type: BLOOD SPECIMEN Ordering Facility: [facility] Address: [address] [place], [place] [address]Performed By: #### HSTNT, 3016-3, 66767-6, 77779-8 #### [facility] CLIA [id number] [address] [place] [address] [place] AMERICAAnion gap [Moles/Vol]11 mmol/LNormal 9-18Fsaint vincent hospital HospitalComment on above:Order Comment: Specimen Type: BLOOD SPECIMEN Ordering Facility: [facility] Address: [address] [place], [place] [address]Performed By: #### HSTNT, 6-3, 76354-3, 22951-1 #### [facility] CLIA [id number] [address] [place] [address] [place] AMERICAAST [Catalytic activity/Vol]21 U/L Preyvo80-50Csrtzckh HospitalComment on above:Order Comment: Specimen Type: BLOOD SPECIMEN Ordering Facility: [facility] Address: [address] [place], [place] [address]Performed By: #### HSTNT, 6-3, 33209-8, 27659-6 #### [facility] CLIA [id number] [address] [place] [address] [place] AMERICABilirubin [Mass/Vol]0.4 mg/dLNormal 0.2-1.3Fsaint vincent hospital HospitalComment on above:Order Comment: Specimen Type: BLOOD SPECIMEN Ordering Facility: [facility] Address: [address] [place], [place] [address]Performed By: #### HSTNT, 3016-3, 06933-3, 97768-2 #### [facility] CLIA [id number] [address] [place] [address] [place] AMERICACalcium [Mass/Vol]8.6 mg/dLNormal 8.5-10.2FFederal Medical Center, DevensComment on above:Order Comment: Specimen Type: BLOOD SPECIMEN Ordering Facility: [facility] Address: [address] [place], [place] [address]Performed By: #### HSTNT, 3016-3, 19408-5, 82308-7 #### [facility] CLIA [id number] [address] [place] [address] [place] AMERICAChloride [Moles/Vol]100 mmol/LNormal 97-105[facility] HospitalComment on above:Order Comment: Specimen Type: BLOOD SPECIMEN Ordering Facility: [facility] Address: [address] [place], [place] [address]Performed By: #### HSTNT, 3016-3, 30533-6, 38736-9 #### [facility] CLIA [id number] [address] [place] [address] [place] AMERICACO2 [Moles/Vol]28 mmol/ZYtqwro61-46 [facility] State HospitalComment on above:Order Comment: Specimen Type: BLOOD SPECIMEN Ordering Facility: [facility] Address: [address] [place], [place] [address]Performed By: #### HSTNT, 3016-3, 74880-1, 38163-7 #### [facility] CLIA [id number] [address] [place] [address] [place] AMERICACreatinine [Mass/Vol]2.00 mg/dLHigh 0.73-1.22[facility] State HospitalComment on above:Order Comment: Specimen Type: BLOOD SPECIMEN Ordering Facility: [facility] Address: [address] [place], [place] [address]Performed By: #### HSTNT, 3016-3, 96291-9, 52511-2 #### [facility] CLIA [id number] [address] [place] [address] [place] AMERICACreatinine and Glomerular filtration rate.predicted panel (S/P/Bld)37 mL/min/1.73m???Low>=60FaNew England Rehabilitation Hospital at LowellComment on above:Order Comment: Specimen Type: BLOOD SPECIMEN Ordering Facility: [facility] Address: [address] [place], [place] [address]Zmiqgu Comment: Estimated Glomerular Filtration Rate (eGFR) is [...] reflect actual GFR.Performed By: #### HSTNT, 3016-3, 46627-6, 55142-0 #### [facility] CLIA [id number] [address] [place] [id number] [place] AMERICAGlucose [Mass/Vol]138 mg/zAAekx38-73 [facility] on above:Order Comment: Specimen Type: BLOOD SPECIMEN Ordering Facility: [facility] Address: [address] [place], [place] [address]Result Comment: The [place] Diabetes Association (ADA) provides guidance for cutoff [...] Standards of Medical Care in Diabetes 2016, [place] [employer]. Diabetes Care. 2016.39(Suppl 1).Performed By: #### HSTNT, 3016-3, 15404-4, 50151-3 #### [facility] CLIA [id number] [address] [place] [id number] [place] AMERICAPotassium [Moles/Vol]4.6 mmol/L Normal3.7-5.1FLovell General Hospital on above:Order Comment: Specimen Type: BLOOD SPECIMEN Ordering Facility: [facility] Address: [address] [place], [place] [address]Performed By: #### HSTNT, 3016-3, 73952-7, 16224-6 #### [facility] CLIA [id number] [address] [place] [address] [place] AMERICAProtein [Mass/Vol]6.5 g/dLNormal 6.3-8.0[facility] State HospitalComment on above:Order Comment: Specimen Type: BLOOD SPECIMEN Ordering Facility: [facility] Address: [address] [place], [place] [address]Performed By: #### HSTNT, 3016-3, 89358-9, 31995-7 #### [facility] CLIA [id number] [address] [place] [address] [place] AMERICASodium [Moles/Vol]139 mmol/LNormal 136-144[facility] HospitalComment on above:Order Comment: Specimen Type: BLOOD SPECIMEN Ordering Facility: [facility] Address: [address] [place], [place] [address]Performed By: #### HSTNT, 3016-3, 78556-6, 53274-6 #### [facility] CLIA [id number] [address] [place] [address] [place] AMERICAUrea nitrogen [Mass/Vol]60 mg/dLHigh 9-24[facility] HospitalComment on above:Order Comment: Specimen Type: BLOOD SPECIMEN Ordering Facility: [facility] Address: [address] [place], [place] [address]Performed By: #### HSTNT, 3016-3, 61801-6, 70817-3 #### [facility] CLIA [id number] [address] [place] [address] [place] OF AMERICAECG COMPLETEon 19-06-8088UJU COMPLETEVentricular Rate : 77 BPM Atrial Rate : 78 BPM P-R Interval : 180 ms QRS Duration : 97 ms Q-T Interval : 389 ms QTC Calculation(Bazett) : 441 ms Calculated P [place] : 53 degrees Calculated R [place] : -76 degrees Calculated T [place] : 65 degrees Sinus rhythm Left anterior fascicular block Abnormal ECG no stemi Confirmed by DARNELL YIN MD ([id number]), editor & co founder JACQUELINE ROSALES ([id number]) on 10/24/2023 10:36:37 AM NAME : NICOLE LORA PID : [id number] : 1960 Gender : Male Race : ORD : [id number] Procedure Date : Oct 23 2023 20:16:04 Edit Date : Oct 24 2023 10:36:39 Diagnosis: Sinus rhythm Left anterior fascicular block Abnormal ECG no stemi Confirmed by DARNELL YIN MD ([id number]), editor & co founder JACQUELINE ROSALES ([id number]) on 10/24/2023 10:36:37 AM Test Reason : Other - Specify Location : 402 : FVED [id number] Overread By : DARNELL YIN MD Edited By : JACQUELINE ROSALES Referred By : , Acquired by : [id number] NOTEon 37-50-1610QA NOTEHNO ID: [id number] Author: PER HARDWICK RN Service: ? 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 He has been in and out of the hospital for the past [address] [facility]. He was initially found to be [...] Date - IDDM (insulin dependent diabetes mellitus) ([facility]) - MRSA infection PAST SURGICAL HISTORY Procedure [...] Notable for the (more content not included)...Normal [facility] HospitalED Triage Noteon 90-48-2421DY Triage NoteHNO ID: [id number] Author: JASKARAN VARELA MD Service: ? Author [...] BNP CXR No diagnosis found. SIGNATURE: [facility]andra MorejonHaverhill [facility] SENSITIVITY TROPONIN Ton 12-90-5580Tutytuvb T.cardiac High sensitivity method [Mass/Vol]167 ng/LHigh<12 [facility] on above:Order Comment: Specimen Type: BLOOD SPECIMENOrdering Facility: [facility] Address:[address] [place], [place] [address]Result Comment: When assessing risk for acute coronary [...] for 30 day MACE.Performed By: #### HSTNT ####[facility]ORYCLIA [id number] [place] [address] [place] AMERICATroponin T.cardiac High sensitivity method [Mass/Vol]172 ng/LHigh<12P[facility] State HospitalComment on above: Order Comment: Specimen Type: BLOOD SPECIMEN Ordering Facility: [facility] Address: [address] [place], [place] [address]Result Comment: When assessing risk for acute coronary [...] 30 day MACE.Performed By: #### HSTNT, 3016-3, 23504-3, 52791-5 #### [facility] CLIA [id number] [address] [place] [address] [place] OF AMERICANT-proBNP SerPl-ncon 10-23-2023 Natriuretic peptide.B prohormone N-Terminal [Mass/Vol]1124 pg/mLHigh<125FaNew England Rehabilitation Hospital at LowellComuniversity of michigan health on above:Order Comment: Specimen Type: BLOOD SPECIMEN Ordering Facility: [facility] Address: [address] [place], [place] [address]Performed By: #### HSTNT, 3016-3, 76671-1, 14849-3 #### [facility] CLIA [id number] [address] [place] [id number] [facility]ITALTS SerPl-aCncon 83-69-6158XBV Qn 2.630 m[IU]/LNormal0.270-4.200[facility] HospitalComment on above:Order Comment: Specimen Type: BLOOD SPECIMEN Ordering Facility: [facility] Address: [address] [place], [place] [address]Performed By: #### HSTNT, 3016-3, 68578-6, 83860-2 #### [facility] CLIA [id number] [address] [place] [id number] [facility]ITALUS DVT LOWER BILon 39-00-7073BA DVT LOWER EDWARD* * *Final Report* * [...] OF THE LEFT AND RIGHT LOWER EXTREMITIES. Geospatial Program Management Officer: [facility] Transcribe Date/Time: Oct 23 2023 6:44P Dictated by : PRESTON GONZALEZ MD This examination was interpreted and the report reviewed and electronically signed by: PRESTON GONZALEZ MD on Oct 23 2023 6:47PM EST [id number] County HospitalXR CHEST 1V FRONTAL PORTon 75-39-6839KM CHEST 1V FRONTAL PORT* * *Final Report* [...] venous hypertension and possible mild pulmonary edema. Geospatial Program Management Officer: SAM Transcribe Date/Time: Oct 23 2023 5:22P Dictated by : RADHA KONG MD This examination was interpreted and the report reviewed and electronically signed by: RADHA KONG MD on Oct 23 2023 5:25PM EST [id number] County HospitalPre-Certification Formon 10-20-2023 Pre-Certification [id number] Hospitals St. John Medical CenterAmbulatory Visit Summaryon 99-56-4777Yosmikwavn Visit SummaryAvita Health System Galion HospitalPatient Educationon 97-89-6427Dvhbdeo EducationNoOur Lady of Mercy HospitalUrology Office/Clinic Noteon 00-90-6206Qjujjgd Office/Clinic NoteAvita Health System Galion HospitalComment on above:Result Comment: Electronically Signed By: Basia Claire\.br\Date and Time Signed: 10/18/23 09:42 EST\.br\Electronically Co-Signed By: Bailey Vásquez\.br\Date and Time Co-Signed: 10/18/23 09:44 EST\.br\Electronically Co- Signed By: Taz THOMAS MD\.br\Date and Time Co-Signed: 10/18/23 15:44 EST Consent for Treatmenton 53-41-1515Redcqmm for Treatment [id number]#1.00TIFChildren's Hospital of ColumbusDischarge Instructionson 61-82-4277Vmdloxzsw Instructions [id number]#1.00TIFTrumbull Regional Medical Center CenterED Clinical Summaryon 04-01-2292WZ Clinical SummaryNoSelect Medical [facility] South CenterED Note-Physicianon 14-02-7472JJ Note-PhysicianNoOur Lady of Mercy HospitalComment on above:Result Comment: Electronically Signed By: Mone Martinez DO.samir\Date and Time Signed: 10/15/23 06:52 ESTED Patient Education Noteon 06-14-8027NL Patient Education NoteNormPremier Health At[facility] Patient Summaryon 94-68-3231TD Patient SummaryNoOur Lady of Mercy Hospital Calcium [Mass/volume] in Serum or PlasmaOrdered By: Yesi Murphy on 87-60-4951Agglkmu [Mass/Vol]8.2 mg/dL8.6-10.3FC[facility] Carbon dioxide, total [Moles/volume] in Serum or PlasmaOrdered By: Yesi Murphy on [id number] [Moles/Vol]33.7 mmol/L21.0-31.0[facility] [place]Chloride [Moles/volume] in Serum or PlasmaOrdered By: Yesi Murphy on [id number] [Moles/Vol]100 mmol/X05-611StighwvffSelect Medical Specialty Hospital - Southeast OhioCreatinine [Mass/volume] in Serum or PlasmaOrdered By: Yesi Murphy on [id number] [Mass/Vol]1.91 mg/dL0.70-1.30[facility] OhioGlucose [Mass/volume] in Serum or PlasmaOrdered By: Yesi Murphy on 94-27-5026Lvdzito [Mass/Vol]250 mg/dE62-032TrdpypgpoSelect Medical Specialty Hospital - Southeast OhioComment on above:ADA recommended reference rangeRandom Glucose Reference Range is dependent on time and content of last meal. Glucose of more than 200 mg/dL in a nonstressed, ambulatory subject supports the diagnosisof Diabetes Mellitus.No Panel InformationOrdered By: Yesi Murphy on 10-13-2023 Estimated GFR (CKD-EPI)38.661 mL/MinSelect Medical Specialty Hospital - Southeast OhioPharmacy Creatinine Clearance (ChemN/[facility] HospitalPotassium [Moles/volume] in Serum or PlasmaOrdered By: Yesi Murphy on 10-13-2023 Potassium [Moles/Vol]4.3 mmol/L3.5-5.1FProMedica Bay Park Hospitalerum or plasma anion gap determinationOrdered By: Yesi Murphy on 86-63-8108Zkxsb gap [Moles/Vol]10.6 mmol/L6.0-15.0[facility] Medical Centerodium [Moles/volume] in Serum or PlasmaOrdered By: Yesi Murphy on 50-52-3137Supmsh [Moles/Vol]140 mmol/D664-603JiyodbnoxSelect Medical Specialty Hospital - Southeast OhioUrea nitrogen [Mass/volume] in Serum or PlasmaOrdered By: Yesi Murphy on 77-16-7292Aqag nitrogen [Mass/Vol]52 mg/dL7-25[facility] OhioAlbumin [Mass/volume] in Serum or Plasma by Bromocresol green (BCG) dye binding metho Ordered By: Gigi Cooper on 66-00-6196Wdctxtu BCG dye [Mass/Vol]3.6 g/dL3.5-5.7 [facility] OhioCalcium [Mass/volume] in Serum or PlasmaOrdered By: Gigi Cooper on 07-39-3639Wgxuaem [Mass/Vol]8.8 mg/dL8.6-10.3FCleveland Clinic Lutheran HospitalCarbon dioxide, total [Moles/volume] in Serum or Plasma Ordered By: Gigi Cooper on 38-69-4061XT0 [Moles/Vol]32.8 mmol/L21.0-31.0 [facility] OhioChloride [Moles/volume] in Serum or Plasma Ordered By: Gigi Cooper 15-30-7788Fsphhqme [Moles/Vol]96 mmol/L98-107 [facility] OhioCreatinine [Mass/volume] in Serum or Plasma Ordered By: Gigi Cooper 90-93-1062Tfqffvtfzf [Mass/Vol]1.95 mg/dL0.70-1.30 [facility] Southeast OhioGlucose Glucometer (BldC) [Mass/Vol]Ordered By: Yesi Murphy on 53-20-7946Bibnrjk [Mass/Vol]224 mg/dLSelect Medical Specialty Hospital - Southeast OhioComment on above:Random Glucose Reference Range is dependent on time and content of last meal. Glucose of more than 200 mg/dL in a nonstressed, ambulatory subject supports the diagnosis of Diabetes Mellitus.Glucose [Mass/volume] in Serum or PlasmaOrdered By: Gigi Cooper on 30-71-6906Lchlxes [Mass/Vol]275 mg/iW86-917TlhivgvqqSelect Medical Specialty Hospital - Southeast OhioComment on above: Delta: 157 on 10/11/23-0643ADA recommended reference rangeRandom Glucose Reference Range is dependent on time and content of last meal. Glucose of more than 200 mg/dL in a nonstressed, ambulatory subject supports the diagnosis of Diabetes Mellitus.No Panel InformationOrdered By: Gigi Cooper on 10-12-2023 Estimated GFR (CKD-EPI)37.711 mL/MinSelect Medical Specialty Hospital - Southeast OhioPharmacy Creatinine Clearance (Chem54.56[facility] OhioNo Panel InformationOrdered By: Yesi Murphy on 98-97-6216Lelrvxy Glucose CommentGlu2: cleaned meterSelect Medical Specialty Hospital - Southeast OhioPhosphate [Mass/volume] in Serum or PlasmaOrdered By: Gigi Cooper on 29-75-0751Wtsohnzkx [Mass/Vol]3.4 mg/dL 2.5-4.5FCleveland Clinic Lutheran HospitalPotassium [Moles/volume] in Serum or PlasmaOrdered By: Gigi Cooper on 04-59-2970Hqznqjnxu [Moles/Vol]3.9 mmol/L 3.5-5.1FProMedica Bay Park Hospitalerum or plasma anion gap determination Ordered By: Gigi Cooper on 70-79-7708Nnohu gap [Moles/Vol]10.1 mmol/L6.0-15.0 [facility] Centerodium [Moles/volume] in Serum or PlasmaOrdered By: Gigi Cooper on 45-43-6944Onajlp [Moles/Vol]135 mmol/F532-539WktobtufhSelect Medical Specialty Hospital - Southeast OhioUrea nitrogen [Mass/volume] in Serum or PlasmaOrdered By: Gigi Cooper on 83-63-1994Lxrp nitrogen [Mass/Vol]48 mg/dL7-25[facility] OhioAutomated erythrocytes count in urine sediment (number/area)Ordered By: Gigi Cooper on 33-73-1255EVL Auto (Urine sed) [#/Area] None seen [HPF]0-4FCleveland Clinic Lutheran HospitalAutomated leukocytes count in urine sediment (number/area)Ordered By: Gigi Cooper on 85-03-0954PXA Auto (Urine sed) [#/Area]None seen [HPF]0-4FCleveland Clinic Lutheran HospitalBilirubin Test strip Ql (U)Ordered By: Gigi Cooper on 66-29-4298Nthnctshw Ql (U)Negative NegativeSelect Medical Specialty Hospital - Southeast OhioColor Auto (U)Ordered By: Gigi Cooper on 12-73-8962Yemag (U)YellowYellowSelect Medical Specialty Hospital - Southeast OhioKetones Auto test strip (U) [Mass/Vol]Ordered By: Gigi Cooper on 19-04-5336Ikaopad (U) [Mass/Vol]NegativeNegativeSelect Medical Specialty Hospital - Southeast OhioLaboratory - UrinalysisOrdered By: Gigi Cooper on 24-84-3332Cgonrkz casts LM Ql (Urine sed) 0-8 [LPF]0-8[facility] OhioNitrite Test strip Ql (U)Ordered By: Gigi Cooper on 10-64-1951Htqshzl Ql (U)NegativeNegTogus VA Medical CenterProtein Auto test strip (U) [Mass/Vol]Ordered By: Gigi Cooepr on 28-69-6774Exaqxhv (U) [Mass/Vol]30 mg/dLNegOhioHealth Mansfield Hospitalpecific gravity Auto test strip (U) [Rel density]Ordered By: Gigi Cooper on 83-07-5572Jbzjhqyb gravity (U) [Rel density]1.0081.001-1.030[facility] Medical Centerquamous epithelial cells detection in urine sediment by light microscopyOrdered By: Gigi Cooper on 31-63-3886Xdogefofdp cells.squamous LM Ql (Urine sed)None seen [HPF]0-2FCleveland Clinic Lutheran HospitalUrine bacteria detection by automated methodOrdered By: Gigi Cooper on 10-10-2023 Bacteria Auto Ql (U)None seenNone SeenSelect Medical Specialty Hospital - Southeast OhioUrine clarity by refractometry automatedOrdered By: Gigi Cooper on 10-64-9972Nzdubsx Refractometry automated (U)ClearCleCentervilleUrine glucose measurement by automated test strip (mass/volume)Ordered By: Gigi Cooper on 90-06-9263Epfphkv Auto test strip (U) [Mass/Vol]Normal mg/dLUniversity Hospitals Conneaut Medical CenterUrine hemoglobin detection by automated test stripOrdered By: Gigi Cooper on 75-11-2261Qucpjdzsrs Auto test strip Ql (U) NegativeNegTogus VA Medical CenterUrine leukocyte esterase detection by automated test stripOrdered By: Gigi Cooper on 08-67-1456Ifgyxblxz esterase Auto test strip Ql (U)NegativeNegTogus VA Medical CenterUrobilinogen Auto test strip (U) [Mass/Vol]Ordered By: Gigi Cooper on 39-91-8006Sljmjbtwqdei (U) [Mass/Vol]Normal mg/dLNoSt. Vincent HospitalpH Auto test strip (U)Ordered By: Gigi Cooper on 11-23-3736fX (U) 5.0 [pH]5.0-9.0[facility] OhioMagnesium [Mass/volume] in Serum or PlasmaOrdered By: Ramses Masters on 51-47-8205Empwtpffa [Mass/Vol]2.0 mg/dL 1.9-2.7FCleveland Clinic Lutheran HospitalNursing Note - [place]ound[place] 86-81-1699Ovcazmj Note - [id number]#1.00TIFFNoOur Lady of Mercy HospitalCreatinine [Mass/volume] in UrineOrdered By: Hood Zacarias on 60-07-4443Baejaadcig (U) [Mass/Vol]23.0 mg/dL14.0-26.0[facility] OhioProtein [Mass/volume] in UrineOrdered By: Hood Zacarias on 93-23-0692Zljcwsv (U) [Mass/Vol]40 mg/dL0-9[facility] [place] Activated partial thromboplastin time (aPTT) in platelet poor plasma by coagulation aOrdered By: Jason Mercado on 38-26-7841nESN Coag (PPP) [Time]31.1 s 25.1-36.5FCleveland Clinic Lutheran HospitalComment on above:A hematocrit value greater than 55% may lead to inaccurate results in coagulation testing. Patients having hematocrit values >55% require a special collection tube for coagulation studies. Please contact the laboratory at [phone] for redraw instructions. Automated erythrocytes count in urine sediment (number/area)Ordered By: Jason Mercado on 76-47-5346AUP Auto (Urine sed) [#/Area]Innumerable [HPF]0-4FCleveland Clinic Lutheran HospitalAutomated leukocytes count in urine sediment (number/area)Ordered By: Jason Mercado on 20-02-7234YCO Auto (Urine sed) [#/Area] 1-2 [HPF]0-4FCleveland Clinic Lutheran HospitalBacterial blood cultureOrdered By: Jason Mercado on 80-72-9055Pvepfabc identified Cx Nom (Bld)NO GROWTH 5 DAYS [facility] OhioBacteria identified Cx Nom (Bld)NO GROWTH 5 DAYSSelect Medical Specialty Hospital - Southeast OhioBacteria identified Cx Nom (Bld)NO GROWTH 5 DAYSSelect Medical Specialty Hospital - Southeast OhioBacteria identified Cx Nom (Bld)NO GROWTH 5 DAYSSelect Medical Specialty Hospital - Southeast OhioBasophils Auto (Bld) [#/Vol]Ordered By: Jason Mercado on 75-68-5494Tiouinwgy (Bld) [#/Vol]0.1 10*3/uL0.0-0.2FCleveland Clinic Lutheran HospitalBasophils/100 WBC Auto (Bld)Ordered By: Jason Mercado on 53-05-9868Npywjssun/100 WBC (Bld)1.0 %.[facility] Bilirubin Test strip Ql (U)Ordered By: Jason Mercado on 65-46-5827Wxhqudont Ql (U)NegativeNegativeSelect Medical Specialty Hospital - Southeast OhioCOVID CepheidOrdered By: Jason Mercado on 36-84-1343FSYI-CoV-2 (COVID-19) Ab IA QlNegativeNegative [facility] Southeast OhioComment on above:This is a duplicate Cepheid Xpert Xpress CoV-2/Flu/RSV Plus RNA by RT-PCR result to be used for statistical tracking purpose only.SARS-CoV-2 (COVID-19) RNA ERIBERTO+probe Ql (Unsp spec) [facility] Medical CenterARS-CoV-2 (COVID-19) RNA ERIBERTO+probe Ql (Unsp spec)[facility] OhioCalcium [Mass/volume] in Serum or Plasma Ordered By: Jason Mercado on 40-93-0748Bbykfmm [Mass/Vol]8.7 mg/dL8.6-10.3 [facility] OhioCarbon dioxide, total [Moles/volume] in Serum or PlasmaOrdered By: Jason Mercado on 03-85-9284PO8 [Moles/Vol]28.2 mmol/L 21.0-31.0[facility] OhioChloride [Moles/volume] in Serum or PlasmaOrdered By: Jason Mercado on 02-37-7001Yojesasu [Moles/Vol]102 mmol/L98-107 [facility] OhioColor Auto (U)Ordered By: Jason Mercado on 27-82-6680Egatq (U)YellowYellowSelect Medical Specialty Hospital - Southeast OhioCreatine kinase [Enzymatic activity/volume] in Serum or PlasmaOrdered By: Jason Mercado on 92-60-6338NJ [Catalytic activity/Vol]60 U/I86-627VopreylsxSelect Medical Specialty Hospital - Southeast OhioCreatinine [Mass/volume] in Serum or PlasmaOrdered By: Jason Mercado on 80-60-7357Kzxnjtrfqv [Mass/Vol]1.86 mg/dL0.70-1.30[facility] OhioEosinophils Auto (Bld) [#/Vol]Ordered By: Jason Mercado on 10-06-2023 Eosinophils (Bld) [#/Vol]0.2 10*3/uL0.0-0.45[facility] [place] Eosinophils/100 WBC Auto (Bld)Ordered By: Jason Mercado on 10-06-2023 Eosinophils/100 WBC (Bld)3.0 %.[facility] Southeast OhioErythrocyte distribution width Auto (RBC) [Ratio]Ordered By: Jason Mercado on 10-06-2023 Erythrocyte distribution width (RBC) [Ratio]18.3 %12.0-14.8[facility] OhioGlucose [Mass/volume] in Serum or PlasmaOrdered By: Jason Mercado on 90-32-0102Rhjsovv [Mass/Vol]243 mg/xA19-354MswlbefsnSelect Medical Specialty Hospital - Southeast [place] Comment on above:ADA recommended reference rangeRandom Glucose Reference Range is dependent on time and content of last meal. Glucose of more than 200 mg/dL in a nonstressed, ambulatory subject supports the diagnosisof Diabetes Mellitus. Hematocrit Auto (Bld) [Volume fraction]Ordered By: Jason Mercado on 10-06-2023 Hematocrit (Bld) [Volume fraction]40.5 %38.8-50.0[facility] Southeast OhioHemoglobin [Mass/volume] in BloodOrdered By: Jason Mercado on 10-06-2023 Hemoglobin (Bld) [Mass/Vol]12.9 g/dL13.0-17.0[facility] [place] INR in Platelet poor plasma by Coagulation assayOrdered By: Jason Mercado on 86-34-9409YOW Coag (PPP) [Relative time]1.0 {INR}[facility] OhioComment on above:INR Therapeutic Range A) Pre- and [...] strip (U) [Mass/Vol]Ordered By: Jason Mercado on 23-87-8313Umvibru (U) [Mass/Vol]NegativeNegativeSelect Medical Specialty Hospital - Southeast OhioLaboratory - Chemistry and Chemistry - challengeOrdered By: Jason Mercado on 16-26-0911JM6 [Moles/Vol]30.8 mmol/L24.0-29.0[facility] Southeast OhioHCO3 (Bld) [Moles/Vol]28.8 mmol/L23.0-29.0[facility] OhioLaboratory - UrinalysisOrdered By: Jason Mercado on 10-06-2023 Hyaline casts LM Ql (Urine sed)0-8 [LPF]0-8[facility] [place] Lactate [Moles/volume] in Serum or PlasmaOrdered By: Jason Mercado on 10-06-2023 Lactate [Moles/Vol]0.7 mmol/L0.5-2.2FC[facility] Luther[facility] HospitalLeukocytes [#/volume] corrected for nucleated erythrocytes in Blood by Automated coun Ordered By: Jason Mercado on 96-11-1766RND corrected for nucl RBC Auto (Bld) [#/Vol]7.0 10*3/uL4.1-10.5FCleveland Clinic Lutheran HospitalLymphocytes Auto (Bld) [#/Vol]Ordered By: Jason Mercado on 46-13-4761Gqmqmkkltup (Bld) [#/Vol]0.8 10*3/uL1.00-4.8[facility] Southeast OhioLymphocytes/100 WBC Auto (Bld) Ordered By: Jason Mercado on 09-58-8286Kmigokiprnk/100 WBC (Bld)11.2 %.[facility] OhioMCH Auto (RBC) [Entitic mass]Ordered By: Jason Mercado on 26-46-7907WKO (RBC) [Entitic mass]27.3 pg27.5-35.2FC[facility] Luther[facility] HospitalMCHC Auto (RBC) [Mass/Vol]Ordered By: Jason Mercado on 32-64-9685QELH (RBC) [Mass/Vol]31.9 g/dL32.5-35.6FC[facility] Lutheran HospitalMCV Auto (RBC) [Entitic vol]Ordered By: Jason Mercado on 50-63-5618IWT (RBC) [Entitic vol]85.6 fL83.5-101[facility] Southeast OhioMonocyte distribution width [Entitic volume] in Blood by AutomatedOrdered By: Jason Mercado on 88-44-5608Omphgosi distribution width Auto (Bld) [Entitic vol]17.40 %0.00-20.00[facility] Southeast OhioMonocytes Auto (Bld) [#/Vol]Ordered By: Jason Mercado on 10-06-2023 Monocytes (Bld) [#/Vol]0.7 10*3/uL0.0-0.8[facility] Monocytes/100 WBC Auto (Bld)Ordered By: Jason Mercado on 28-95-2556Rrpjmznhn/100 WBC (Bld)10.0 %.[facility] OhioNatriuretic peptide B [Mass/Vol]Ordered By: Jason Mercado on 35-86-3459Ryrbfwtkvxo peptide B (Bld) [Mass/Vol]131.0 pg/mL5-100[facility] OhioNeutrophils Auto (Bld) [#/Vol]Ordered By: Jason Mercado on 30-81-3168Ehzslskxawc (Bld) [#/Vol]5.2 10*3/uL1.8-7.7FCleveland Clinic Lutheran HospitalNeutrophils/100 WBC Auto (Bld) Ordered By: Jason Mercado on 51-34-7314Mxivruxuuha/100 WBC (Bld)74.8 %.[facility] OhioNitrite Test strip Ql (U)Ordered By: Jason Mercado on 45-28-7045Oshxzao Ql (U)NegativeNegativeSelect Medical Specialty Hospital - Southeast OhioNo Panel InformationOrdered By: Jason Mercado on 03-12-1061Gsqcd Gas Critical Value See commentSelect Medical Specialty Hospital - Southeast OhioComment on above:Critical Value called on: 10/06/2023 at 21:16Blood Gas Liter Ihbq2OmbnkudzfSelect Medical Specialty Hospital - Southeast OhioBlood Gas Sample SiteVenCleveland Clinic Mentor HospitalFiO245% % [facility] OhioOxygen Delivery DeviceNasal cannulaSelect Medical Specialty Hospital - Southeast OhioVenous Blood Base Excess0.4 mmol/L-3.0-3.0[facility] OhioVenous Blood Oxygen Yvhlcrdpfu38.5 %73.0-76.0[facility] OhioVenous Blood Partial Pressure CO263.9 mm[Hg]38.0-50.0 [facility] Southeast OhioVenous Blood pH7.277.32-7.43[facility] OhioEstimated GFR (CKD-EPI)39.912 mL/MinSelect Medical Specialty Hospital - Southeast OhioPharmacy Creatinine Clearance (Chem57.52[facility] [place] Nucleated erythrocytes [Presence] in Blood by Automated countOrdered By: Jason Mercado on 61-78-7913Suumqayyp RBC Auto Ql (Bld)0.1 /100{WBC}0-0.5FCleveland Clinic Lutheran HospitalPlatelet mean volume Auto (Bld) [Entitic vol]Ordered By: Jason Mercado on 93-89-0548Dfsjndcf mean volume (Bld) [Entitic vol]6.8 fL6.6-10.1 [facility] Southeast OhioPlatelets Auto (Bld) [#/Vol]Ordered By: Jason Mercado on 80-68-5093Luvuwynnx (Bld) [#/Vol]236 10*3/sQ389-376AluvzqxaoSelect Medical Specialty Hospital - Southeast OhioPotassium [Moles/volume] in Serum or PlasmaOrdered By: Jason Mercado on 82-42-9866Owthhmtro [Moles/Vol]5.6 mmol/L3.5-5.1FC[facility] Luther[facility] HospitalProtein Auto test strip (U) [Mass/Vol]Ordered By: Jason Mercado on 29-71-8767Rrkfqun (U) [Mass/Vol]100 mg/dLNegativeSelect Medical Specialty Hospital - Southeast OhioProthrombin time (PT)Ordered By: Jason Mercado on 58-78-5588WV Coag (PPP) [Time]11.4 s9.0-12.9[facility] Southeast OhioComment on above:A hematocrit value greater than 55% may lead to inaccurate results in coagulation testing. Patientshaving hematocrit values >55% require a special collection tube for coagulation studies. Please contact the laboratory at [phone] for redraw instructions.RBC Auto (Bld) [#/Vol]Ordered By: Jason Mercado on 10-06-2023 RBC (Bld) [#/Vol]4.73 10*6/uL3.90-5.60[facility] Medical Centererum or plasma anion gap determinationOrdered By: Jason Mercado on 89-24-1621Yjelc gap [Moles/Vol]10.4 mmol/L6.0-15.0[facility] Medical Centerodium [Moles/volume] in Serum or PlasmaOrdered By: Jason Mercado on 63-26-3392Kbmxpy [Moles/Vol]135 mmol/D040-795CidnewmrdWright-Patterson Medical Centerpecific gravity Auto test strip (U) [Rel density]Ordered By: Jason Mercado on 41-27-5886Jtqokxsj gravity (U) [Rel density]1.0131.001-1.030[facility] Squamous epithelial cells detection in urine sediment by light microscopyOrdered By: Jason Mercado on 40-64-8834Pfejybqvjv cells.squamous LM Ql (Urine sed)0-1 [HPF]0-2FC[facility] Clinic Lutheran HospitalTroponin I.cardiac [Mass/volume] in Serum or Plasma by Detection limit <= 0.01 ng/Ordered By: Jason Mercado on 11-01-3409Zjhplmip I.cardiac DL <= 0.01 ng/mL [Mass/Vol]8.2 pg/mL0.0-20.0 [facility] OhioUrea nitrogen [Mass/volume] in Serum or Plasma Ordered By: Jason Mercado on 26-90-8990Cptt nitrogen [Mass/Vol]53 mg/dL7-25 [facility] Southeast OhioUrine bacteria detection by automated method Ordered By: Jason Mercado on 58-31-4552Nargdjkr Auto Ql (U)None seenNone Seen [facility] OhioUrine clarity by refractometry automatedOrdered By: Jason Mercado on 62-82-4059Jabqvrn Refractometry automated (U)ClearClear [facility] OhioUrine glucose measurement by automated test strip (mass/volume)Ordered By: Jason Mercado on 85-06-0508Pgwmnvq Auto test strip (U) [Mass/Vol]100 mg/dLNormalSelect Medical Specialty Hospital - Southeast OhioUrine hemoglobin detection by automated test stripOrdered By: Jason Mercado on 10-06-2023 Hemoglobin Auto test strip Ql (U)3+NegativeSelect Medical Specialty Hospital - Southeast [place] Urine leukocyte esterase detection by automated test stripOrdered By: Jason Mercado on 26-84-8470Dyahukehv esterase Auto test strip Ql (U)NegativeNegative [facility] OhioUrobilinogen Auto test strip (U) [Mass/Vol] Ordered By: Jason Mercado on 32-11-2280Vckmjzlmwiiw (U) [Mass/Vol]Normal mg/dL NormalSelect Medical Specialty Hospital - Southeast OhioWBC Auto (Bld) [#/Vol]Ordered By: Jason Mercado on 90-25-4534SFJ (Bld) [#/Vol]7.0 10*3/uL4.1-10.5FC[facility] Clinic Lutheran HospitalpH Auto test strip (U)Ordered By: Jason Mercado on 06-89-5186sO (U) 5.0 [pH]5.0-9.0[facility] OhioAmbulatory Visit Summaryon 32-86-7657Qxktzzcamg Visit HbnyeexFieq[address], [address] [place] [id number]- \.br\ 2023 9:00 AM EDT \.br\ With:\.br\ [...] day\.br\ Unchanged Misc Prescription (Freestyle Sage 2 Opheim) See instructions Use daily with sensor \.br\ Unchanged Misc Prescription (Freestyle Sage 2 Sensors) See instructions Apply one q 14 days \.br\ Unchanged Misc Prescription (Glucometer test strips) See instructions Test TID DX E11.40 on insulin \.br\ Unchanged Misc Prescription (Glucometer) See instructions Diabetes mellitus with neuropathy Dispense 1 Glucometer \.br\ Unchanged Misc Prescription (Insulin Pen Dexter 31g x 8 mm) See instructions Use [...] for choosing us for your care.\.br\ [ImageRemoved]\.br\[facility] CenterConsent for Procedure/Surgeryon 88-72-8456Efmltxa for Procedure/Surgery [id number]#1.00TIFFNormDunlap Memorial HospitalConsent for Treatmenton 88-29-1755Rnroigw for Treatment [id number]#1.00TIFFNormalSouthwest General Health CenterHBOon [id number]#1.00TIFF NormalSouthwest General Health CenterMulti-Wound Charton 45-91-6540Mvokw-Wound Chart [id number]#1.00TIFFNormalCommunity Healthhudson Mercy Medical CenterNursing Assessment - [place] 56-82-1300Fxrdmwu Assessment - Wound [id number]#1.00CARYAllisonOur Lady of Mercy HospitalNursing Note - [place] 81-55-3245Gkatseq Note - Wound [id number]#1.00CARYAllisonOur Lady of Mercy HospitalPhysician Orderon 07-33-0809Abccukjaa Order [id number]#1.00[facility] HospitalPhysician [id number]#2.00CARYBoris Southwest General Health CenterProcedure - [place]ound[place] 72-00-1341Ftcaiwzyr - Wound [id number]#1.00CARYAllisonOur Lady of Mercy HospitalProgress Note - [place] 40-22-4451Wjbzquyu Note - Wound [id number]#2.00CARYAllisonTrinity Health System West Campuscreenson 19-86-9565Himhfvd [id number]#1.00[facility] HospitalCHEMISTRYOrdered By: Yahaira Limon on 96-70-7706Vpkkiqh [Mass/Vol]224 mg/dL High55 - 99 mg/dLINTEGRIS [facility] [place] [facility] SubsectionPOC Device [id number] 1Invalid Interpretation CodeINTEGRIS MIAMI [facility]OSP[facility] [place] POC SubsectionPOC User [id number] 1Invalid Interpretation CodeINTEGRIS MIAMI [facility]OSP[facility] – [place] POC SubsectionPOC UsernamSylvia Ernandezvalid Interpretation CodeINTEGRIS [facility]AMI [facility]OSP[facility] [place] POC SubsectionCapillary Glucose POCon 36-45-7892Jvugwzh [Mass/Vol]224 mg/zJEzus26-98QtqocbSouthwest General Health CenterComment on above: Performed By: #### [id number] ####[facility] [address] [place], [place] [address]Fcupsgs Educationon 08-46-5877Olhcdsp Education [facility] HospitalPre-Certification Formon 35-56-9175Bri- Certification [id number]#1.00[facility] HospitalUrology Office/Clinic Noteon 43-51-0931Qkskbdf Office/Clinic NoteAvita Health System Galion HospitalComment on above:Result Comment: Electronically Signed By: BRYAN Bahena APRN, Gisselle Glasgow\.br\Date and Time Signed: 10/02/23 07:51 ESTConsent for Procedure/Surgeryon 45-73-8405Ejrgorp for Procedure/[id number]#1.00TIFChildren's Hospital of ColumbusCorrespondence - Woundon 43-37-8678Iyybblqvgbfamd - Wound [id number]#1.00TIFChildren's Hospital of ColumbusCorrespondence - [id number]#1.00TIFF [facility] HospitalCoding Queryon 31-82-3449Mhhybg Query [id number]#1.00TIFChildren's Hospital of ColumbusInsurance Correspondenceon 55-94-1754Voadogaov Correspondence [id number]#1.00TIFChildren's Hospital of ColumbusC Urineon 78-72-1777Aezicmhl identified Cx Nom (U)[facility] HospitalComment on above:Performed By: #### [id number] ####[facility] [address] [place], [place] [address]Acszgtoci Correspondenceon 94-07-4681Pzvpijtna Correspondence [id number]#1.00TIFFNormalSouthwest General Health CenterBMPon 05-74-1792Sjpsq gap [Moles/Vol]11 mmol/LNormal6-16[facility] Health CenterComment on above:Performed By: #### [id number], 4489165, 5215982 ####[facility] [address] [place] [address] BUN/Creat Ratio29 No WciwmMgpz96-57JgdauhSouthwest General Health CenterComment on above: Performed By: #### 45812006, 7135098, 1625582 ####[address] [place], [place] [address]Ijaoxgk [Mass/Vol]8.7 mg/dLLow 8.9-11.1FCleveland Clinic Mercy HospitalComment on above:Performed By: #### 25883303, 3249615, 9803211 ####[address] [address]Aannexco [Moles/Vol]103 mmol/SThhzmb114-751TrfhwqSouthwest General Health CenterComment on above:Performed By: #### 06817920, 7080525, 5068515 ####[address] [address]UC8 [Moles/Vol]28 mmol/TGkwqmn12-74UtlsstSouthwest General Health CenterComment on above: Performed By: #### 32327047, 3882632, 1262235 ####[address] [place], [place] [address]Babrozzvki [Mass/Vol]1.7 mg/dLHigh 0.5-1.3FCleveland Clinic Mercy HospitalComment on above:Performed By: #### 61013125, 2945610, 4353138 ####[address] [place], [place] [address]Hepzzyr [Mass/Vol]280 mg/uMRcfx34-026NdxbqmSouthwest General Health CenterComment on above:Performed By: #### 37294514, 9606043, 9292783 ####[address] [address]Zzmztanqe [Moles/Vol]4.9 mmol/LNormal3.5-5.3FCleveland Clinic Mercy HospitalComment on above: Performed By: #### 88519163, 8919407, 1926620 ####[address] [address]Bldxea [Moles/Vol]137 mmol/LNormal 135-145Southwest General Health CenterComment on above:Performed By: #### 64070733, 8124842, 2586209 ####[address] [address]Yxmz nitrogen [Mass/Vol]50 mg/dLHigh5-21[facility] Health CenterComment on above:Performed By: #### 86337306, 2763401, 4615980 ####[address] [address]INA w/ Auto Diffon 66-14-0257Ajxbsoqe Absolute0.0 E9/LNormal0.0-0.2FCleveland Clinic Mercy HospitalComment on above:Performed By: #### 91652376, 7557047, 1442263 ####[address] [address]Uakmziyes/100 WBC (Bld)0.5 %Normal0.0-2.0[facility] General Health CenterComment on above:Performed By: #### 37333901, 1900465, 2570221 ####[address] [address]Hyg Absolute0.3 E9/LNormal0.0-0.5 [facility] Health CenterComment on above:Performed By: #### 92850481, 9888806, 0862821 ####[address] [address]Vutegltngoq/100 WBC (Bld)4.7 %Normal0.0-8.0[facility] Health CenterComment on above:Performed By: #### 70296065, 2266015, 2450617 ####[address] [address] Erythrocyte distribution width (RBC) [Ratio]17.8 %High10.9-14.2FCleveland Clinic Mercy HospitalComment on above:Performed By: #### 36074845, 7850715, 7829169 ####[address] [address] Hematocrit (Bld) [Volume fraction]44.0 %Oolpya74.7-49.0[facility] Health CenterComment on above:Performed By: #### 06266735, 9130106, 6962537 ####[address] [address]Jmdutsioit (Bld) [Mass/Vol]13.9 g/jULahofo87.5-17.5FCleveland Clinic Mercy HospitalComment on above: Performed By: #### 21914176, 9933945, 6842145 ####[address] [address]Rhook Absolute1.1 E9/LNormal1.0-4.0 [facility] CenterComment on above:Performed By: #### 67709822, 1668667, 8366321 ####[address] [address]Dnadfasddco/100 WBC (Bld)20.1 %Nyhpqh06.0-50.0[facility] Health CenterComment on above:Performed By: #### 54770182, 4859999, 4666434 ####[address] [address]QFN (RBC) [Entitic mass]27.3 owEhgdxv55.0-34.0[facility] Health CenterComment on above:Performed By: #### 36513650, 1828852, 3560192 ####[address] [address]SWFM (RBC) [Mass/Vol]31.9 g/dL Tomtxy66.4-36.0[facility] Health CenterComment on above:Performed By: #### 64391795, 1831087, 5788070 ####[address] [address]GRL (RBC) [Entitic vol]85.7 bQJdsczh74.0-100.0 [facility] CenterComment on above:Performed By: #### 41209106, 4313865, 5661567 ####[address] [address]Rqcp Absolute0.6 E9/LNormal0.2-1.0[facility] Health CenterComment on above:Performed By: #### 88409710, 9004378, 1983737 ####[address] [address]Hvdemwcsi/100 WBC (Bld)11.0 %Normal4.0-14.0[facility] Health CenterComment on above: Performed By: #### 43672054, 0630421, 4141002 ####[address] [address]Dsmsih Absolute3.5 E9/LNormal2.0-7.5 [facility] Health CenterComment on above:Performed By: #### 21808640, 1519146, 1698759 ####[address] [address]Jkqppq Auto63.7 %Leembg05.0-75.0[facility] Comment on above:Performed By: #### 06909288, 7184290, 6927517 ####[address] [address]Fhdhdrcr055.0 E9/L Glhgil810.0-500.0[facility] Health CenterComment on above:Performed By: #### 18935780, 5826890, 1250920 ####[address] [address]Ddevkhod mean volume (Bld) [Entitic vol]6.9 fL Normal6.4-10.8[facility] Health CenterComment on above:Performed By: #### 82307024, 7112254, 1083344 ####[facility] [address] [place], [place] [address]VKG0.1 E12/LNormal4.3-5.9[facility] Health CenterComment on above:Performed By: #### 30433770, 1180774, 2777826 ####[facility] [address] [place], [place] [address]GAQ6.5 E9/L Normal4.0-11.0[facility] Health CenterComment on above:Performed By: #### 64719269, 8710455, 4588262 ####[facility] [address] [place], [place] [address]EKPQRYIKNMpxthcy By: SYSTEM SYSTEM on 09-24-2023 Anion gap [Moles/Vol]11 mmol/LNormal6 - 16 mEq/LRemisol ChemCalcium [Mass/Vol] 8.7 mg/dLLow8.9 - 11.1 mg/dLRemisol ChemChloride [Moles/Vol]103 mmol/WHslrpw662 - 111 mmol/LRemisol ChemCO2 [Moles/Vol]28 mmol/KGlvxbf96 - 31 mmol/LRemisol Chem Creatinine [Mass/Vol]1.7 mg/dLHigh0.5 - 1.3 mg/dLRemisol JgtidWHR85 mL/min/1.73 m2Low>=59mL/min/1.73 u6Rwjhunj ChemGlucose [Mass/Vol]280 mg/xTYdiv46 - 199 mg/dL Remisol ChemPotassium [Moles/Vol]4.9 mmol/LNormal3.5 - 5.3 mmol/LRemisol Chem Sodium [Moles/Vol]137 mmol/MHzjyau646 - 145 mmol/LRemisol ChemUrea nitrogen [Mass/Vol]50 mg/dLHigh5 - 21 mg/dLRemisol ChemUrea nitrogen/Creatinine [Mass ratio]29 mg/ydKlxw32 - 20Remisol ChemConsent for Treatmenton 81-62-9012Uoqsobk for [id number]#1.00TIFChildren's Hospital of ColumbusDischarge Instructionson 96-48-0079Olefenhol Instructions [id number]#1.00TIFNorwalk Memorial Hospital Clinical Summaryon 17-67-2444QP Clinical SummaryNormMercy Health Clermont Hospital CenterED Note-Physicianon 68-71-6784FB Note-PhysicianAvita Health System Galion HospitalComment on above:Result Comment: Electronically Signed By: Jose Miguel Phan DO\.br\Date and Time Signed: 09/24/23 21:39 ESTED Patient Education Noteon 30-67-5872LD Patient Education NoteNormPremier Health [facility] Patient Summaryon 36-01-5567OF Patient SummaryNoOur Lady of Mercy HospitalHEMATOLOGYOrdered By: SYSTEM SYSTEM on 62-33-8836Pcdsqwal Absolute 0.0 E9/LNormal0.0 - 0.2 E9/LRemisol HemeBasophils/100 WBC (Bld)0.5 %Normal0.0 - 2.0 %Remisol HemeEos Absolute0.3 E9/LNormal0.0 - 0.5 E9/LRemisol Heme Eosinophils/100 WBC (Bld)4.7 %Normal0.0 - 8.0 %Remisol HemeErythrocyte distribution width (RBC) [Ratio]17.8 %High10.9 - 14.2 %Remisol HemeHematocrit (Bld) [Volume fraction]44.0 %Tpfrbj06.7 - 49.0 %Remisol HemeHemoglobin (Bld) [Mass/Vol]13.9 g/kJDjshpg40.5 - 17.5 gm/dLRemisol HemeLymph Absolute1.1 E9/L Normal1.0 - 4.0 E9/LRemisol HemeLymphocytes/100 WBC (Bld)20.1 %Wtauzu26.0 - 50.0 %Remisol HemeMCH (RBC) [Entitic mass]27.3 xkPytere40.0 - 34.0 pgRemisol Heme MCHC (RBC) [Mass/Vol]31.9 g/xJXekqnt28.4 - 36.0 gm/dLRemisol HemeMCV (RBC) [Entitic vol]85.7 uTEjfsxj73.0 - 100.0 fLRemisol HemeMono Absolute0.6 E9/LNormal 0.2 - 1.0 E9/LRemisol HemeMonocytes/100 WBC (Bld)11.0 %Normal4.0 - 14.0 %Remisol HemeNeutro Absolute3.5 E9/LNormal2.0 - 7.5 E9/LRemisol HemeNeutro Auto63.7 % Blpuah51.0 - 75.0 %Remisol LvbzVlxyspxg719.0 E9/DPaimsc052.0 - 500.0 E9/LRemisol HemePlatelet mean volume (Bld) [Entitic vol]6.9 fLNormal6.4 - 10.8 fLRemisol HemeRBC5.1 E12/LNormal4.3 - 5.9 E12/LRemisol HemeWBC5.5 E9/LNormal4.0 - 11.0 E9/LRemisol HemeUA With Cult Reflexon 58-25-6198Xfrojqsndkhn Qn (U)0.2 {Itz'U}/dLNormal0.0-1.0[facility] Health CenterComment on above:Performed By: #### 9664357, 33208248 ####[address] [place], [place] [address]Ncsdjntz LM Ql (Urine sed)TRACENormalTraceSouthwest General Health CenterComment on above:Performed By: #### 5342365, 41913206 ####[facility] [address] [place] [address] Bilirubin Ql (U)1+AbnormalNegativeSouthwest General Health CenterComment on above: Performed By: #### 6687876, 61750495 ####[facility] [address] [place], [place] [address]Ubpifrc (U)CLOUDYAbnormalClearFCleveland Clinic Mercy HospitalComment on above:Performed By: #### 5486430, 69053857 ####[facility] [address] [address]Xgixg (U)REDAbnormalYellowSouthwest General Health CenterComment on above:Performed By: #### 4056800, 37313387 ####[address] [address]Ahgtzxmupq cells.squamous LM.HPF (Urine sed) [#/Area]3-4 Normal0-2[facility] Medical CenterComment on above:Performed By: #### 8165286, 90031037 ####[address] [address]Rdluoti Test strip (U) [Mass/Vol]2+AbnormalNegativeSouthwest General Health CenterComment on above:Performed By: #### 5097103, 00155647 ####[address] [address]Bfqkqqsvyi Ql (U)3+ AbnormalNegativeSouthwest General Health CenterComment on above:Performed By: #### 6791477, 22360492 ####[address] [address]Omfagol (U) [Mass/Vol]NegativeNormalNegativeSouthwest General Health CenterComment on above:Performed By: #### 7267173, 67241470 ####[address] [address] [place].plasma/[place].RBC (Bld) [Mass ratio]>84Qlkykzke5-7ErjwjlCleveland Clinic Mercy HospitalComment on above:Performed By: #### 3116858, 69563578 ####[address] [address]Vglxcsc Ql (U)Positive AbnormalNegativeSouthwest General Health CenterComment on above:Performed By: #### 8912152, 88856001 ####[address] [address]vP (U)5.5 [pH]Invalid Interpretation Code5.0-9.0[facility] Health CenterComment on above:Performed By: #### 8254959, 74489424 ####[facility] [address] [place], [place] [address]Mkxvrnh (U) [Mass/Vol]3+AbnormalNegativeSouthwest General Health CenterComment on above: Performed By: #### 6679092, 51778715 ####[address] [address]Ccvfqdzn gravity (U) [Rel density] 1.025Invalid Interpretation Code1.005-1.030[facility] Health CenterComment on above:Performed By: #### 0273356, 99494585 ####[address] [address]Irbf of Urine collection method CatheterNormalSouthwest General Health CenterComment on above:Performed By: #### 5619079, 27982694 ####[address] [address]WIT Auto Ql (U)NegativeNormalNegOhioHealth Marion General HospitalComment on above:Performed By: #### 1214196, 04513149 ####[address] [address]FHT LM.HPF (Urine sed) [#/Area]3-3Rkhnbv5-0BtvwkzCleveland Clinic Mercy HospitalComment on above:Performed By: #### 6038674, 33406773 ####[address] [address]IIZHDDRWYOWqauwgz By: Liberty Quinn on 45-08-1422Seumighu LM Ql (Urine sed)Trace /HPFNormalTrace/HPFFT UA Auto SSBilirubin Ql (U)1+ *ABN* (09/24/23 8:26 PM)Invalid Interpretation CodeNegativeINTEGRIS [facility] [place] UA Auto SSClarity (U) Cloudy *ABN* (09/24/23 8:26 PM)Invalid Interpretation CodeClearFTMC UA Auto SSColor (U)Red *ABN* (09/24/23 8:26 PM)Invalid Interpretation CodeYellowINTEGRIS MIAMI HOSPITAL – [place] UA Auto SSEpithelial cells.squamous LM.HPF (Urine sed) [#/Area]3-4 /HPFNormal0-2/HPFINTEGRIS MIAMI [facility]OSP[facility] [place] UA Auto SS Glucose Test strip (U) [Mass/Vol]2+ *ABN* (09/24/23 8:26 PM)Invalid Interpretation CodeNegativeINTEGRIS MIAMI [facility]OSP[facility] [place] UA Auto SSHemoglobin Ql (U)3+ *ABN* (09/24/23 8:26 PM)Invalid Interpretation CodeNegativeINTEGRIS MIAMI [facility]OSP[facility] [place] UA Auto SSKetones (U) [Mass/Vol]Negative (09/24/23 8:26 PM)NormalNegativeINTEGRIS [facility]AMI [facility]OSP[facility] [place] UA Auto SSLithium.plasma/[place].RBC (Bld) [Mass ratio]>75 /HPFInvalid Interpretation Code0-3/HPFINTEGRIS MIAMI HOSPITAL – [place] UA Auto SSNitrite Ql (U)Positive *ABN* (09/24/23 8:26 PM)Invalid Interpretation CodeNegativeINTEGRIS [facility]AMI [facility]OSP[facility] [place] UA Auto SSpH (U)5.5 *NA* (09/24/23 8:26 PM)Invalid Interpretation Code5.0 - 9.0[facility] UA Auto SSProtein (U) [Mass/Vol]3+ *ABN* (09/24/23 8:26 PM)Invalid Interpretation CodeNegativeINTEGRIS MIAMI [facility]OSPITAL [facility] [place] UA Auto SSSpecific gravity (U) [Rel density]1.025 *NA* (09/24/23 8:26 PM)Invalid Interpretation Code1.005 - 1.030[facility] [place] UA Auto SSUA Spec DescCatheter (09/24/23 8:26 PM)NormalINTEGRIS MIAMI HOSPITAL – [place] UA Auto SSUrobilinogen Qn (U)0.4255895 {Itz'U}/dL Normal0.0 - 1.0 EU/dLINTEGRIS MIAMI HOSPITAL – [place] UA Auto SSWBC Auto Ql (U)Negative (09/24/23 8:26 PM)NormalNegativeINTEGRIS [facility]AMI [facility]OS[facility] [place] UA Auto SSWBC LM.HPF (Urine sed) [#/Area]0-5 /HPFNormal0-5/HPFINTEGRIS MIAMI HOSPITAL – [place] UA Auto SSeGFRon 13-22-6566rKXN09 mL/min/1.73 m2Low>=59 [facility] CenterComment on above:Order Comment: Order added by Discern Expert.Performed By: #### 00226815, 2152090, 3456399 ####[facility] [address] [place] [place], [place] [address]Mzxrotkmg Correspondence Officeon 98-91-7809Wlqlsgufx Correspondence Office [id number]#1.00[facility] HospitalC Blood Charcoalon 86-35-1643Vgctp Culture CharcoalAvita Health System Galion HospitalComment on above:Performed By: #### 60762437 ####[facility] [address] [place], [place] [address]Yiblafnhp Instructions on 53-67-7236Ziwkbbvhd Instructions [id number]#1.00TIFChildren's Hospital of ColumbusConsent for Procedure/Surgeryon 17-98-0733Pglvvrc for Procedure/Surgery [id number]#1.00[facility] HospitalConsent for Treatmenton 65-15-6124Jlpzxdt for Treatment [id number]#1.00[facility] HospitalDischarge Instructionson 35-84-4638Rrmnrdwzt Instructions [id number]#1.00[facility] Clinical Summaryon 32-92-2777AY Clinical SummaryNoSelect [facility] Specialty Hospital - Columbus South CenterED Note-Physicianon 21-80-8232MX Note-PhysicianAvita Health System Galion HospitalComment on above:Result Comment: Electronically Signed By: Shira Snider, Alejandro Esteves\.br\Date and Time Signed: 09/17/2418:00 ESTED Patient Education Noteon 23-75-9562KQ Patient Education NoteNoSelect Medical Specialty Hospital - Columbus South CenterED Patient Summaryon 89-47-4193TT Patient SummaryNoOur [facility] of [facility] BMPon 12-84-0070Bchio gap [Moles/Vol]10 mmol/LNormal6-16[facility] CenterComment on above:Performed By: #### 0288994, 26555039, 6431907, 3219369 ####[facility] [address] [place] [address] BUN/Creat Ratio24 No PvkayPdqn85-86WhrbxxSouthwest General Health CenterComment on above: Performed By: #### 8867854, 39008492, 0006369, 4115725 ####[facility] [address] [place], [place] [address]Ozlfzow [Mass/Vol]8.2 mg/dLLow 8.9-11.1FCleveland Clinic Mercy HospitalComment on above:Performed By: #### 4138067, 58946348, 9965155, 1453075 ####[facility] [address] [place], [place] [address]Xthzpfqt [Moles/Vol]97 mmol/KTyv693-855DkynelSouthwest General Health CenterComment on above:Performed By: #### 1285288, 39673069, 8752866, 2167428 ####[address] [address]XO5 [Moles/Vol]33 mmol/FTupa64-14WxdcdzSouthwest General Health CenterComment on above:Performed By: #### 4125924, 61389957, 6570043, 2311943 ####[facility] [address] [place], [place] [address]Ledriwefya [Mass/Vol] 1.6 mg/dLHigh0.5-1.3FC[facility] Clinic Mercy HospitalComment on above:Performed By: #### 2798317, 21815860, 1391698, 0996773 ####[facility] [address] [place], [place] [address]Ihfcmei [Mass/Vol]191 mg/dLNormal 55-199South[facility] Health CenterComment on above:Performed By: #### 3911131, 05010872, 0757176, 5090869 ####[facility] [address] [place], [place] [address]Jfyakwpme [Moles/Vol]4.0 mmol/LNormal3.5-5.3FC[facility] Clinic Mercy HospitalComment on above:Performed By: #### 6691298, 32438631, 1620609, 9036713 ####[address] [address]Uonwep [Moles/Vol]136 mmol/IWxfpqc179-796TcrutcSouthwest General Health CenterComment on above:Performed By: #### 0003215, 39831136, 1224369, 9615561 ####[address] [address]Cjty nitrogen [Mass/Vol]38 mg/dLHigh5-21[facility] CenterComment on above:Performed By: #### 9349951, 49018051, 3118013, 9092958 ####[address] [address]QLB w/ Auto Diffon 85-96-9087Xcoilpap Absolute0.0 E9/LNormal0.0-0.2[facility] Comment on above:Performed By: #### 3479806, 38884872, 3672417, 2880965 ####[address] [address] Basophils/100 WBC (Bld)0.7 %Normal0.0-2.0[facility] CenterComment on above:Performed By: #### 9774549, 62084759, 5324848, 0030292 ####[address] [address]Adz Absolute0.4 E9/L Normal0.0-0.5FCleveland Clinic Mercy HospitalComment on above:Performed By: #### 5017917, 47857902, 1643495, 5218955 ####[address] [address]Bkjdiithplg/100 WBC (Bld)6.9 %Normal 0.0-8.0[facility] Health CenterComment on above:Performed By: #### 9639651, 44236739, 8845043, 0874877 ####[address], [place] [address]Elywfsnbvdu distribution width (RBC) [Ratio]17.4 % High10.9-14.2FCleveland Clinic Mercy HospitalComment on above:Performed By: #### 1605998, 81718545, 5097285, 7052881 ####[address] [address]Cqjqgueirq (Bld) [Volume fraction] 44.0 %Nribbb00.7-49.0[facility] CenterComment on above:Performed By: #### 8089019, 36364980, 5490316, 4016978 ####[address] [address]Rmqgztypsh (Bld) [Mass/Vol]13.8 g/dL Qrprwy34.5-17.5FCleveland Clinic Mercy HospitalComment on above:Performed By: #### 9456083, 22763955, 3428963, 0867920 ####[address] [address]Brzbv Absolute1.4 E9/LNormal1.0-4.0 [facility] CenterComment on above:Performed By: #### 1724065, 37321500, 6275164, 9581185 ####[address] [address]Imzautwstrh/100 WBC (Bld)21.5 %Dntalv41.0-50.0 [facility] CenterComment on above:Performed By: #### 8554713, 02932671, 3773105, 0810114 ####[facility] [address] [place] [address]WQP (RBC) [Entitic mass]27.0 ddXzncce99.0-34.0 [facility] CenterComment on above:Performed By: #### 4373413, 12012343, 5641518, 3663907 ####[facility] [address] [place] [address]KAKG (RBC) [Mass/Vol]31.3 g/dLLow31.4-36.0[facility] CenterComment on above:Performed By: #### 0661403, 27356660, 6557267, 7674164 ####[address] [address]RYX (RBC) [Entitic vol]86.3 jEXomlns15.0-100.0[facility] CenterComment on above:Performed By: #### 8691325, 51515772, 0694081, 9381745 ####[address] [address]Ywtb Absolute0.8 E9/LNormal0.2-1.0[facility] CenterComment on above:Performed By: #### 1654832, 93679524, 0526343, 5808247 ####[address] [address]Znajfqnup/100 WBC (Bld)13.0 %Normal4.0-14.0[facility] CenterComment on above:Performed By: #### 5450038, 03300359, 2655580, 2308246 ####[address] [address]vd Absolute3.8 E9/LNormal2.0-7.5 [facility] CenterComment on above:Performed By: #### 5918487, 38695297, 1903275, 5989369 ####[address] [address]Ppwjak Auto57.9 %Cfvaec43.0-75.0[facility] CenterComment on above:Performed By: #### 0139919, 23400075, 9324320, 0380638 ####[address] [address]Ptsuqdoe294.0 E9/JIkgzux790.0-500.0[facility] CenterComment on above:Performed By: #### 6638467, 58830073, 2999547, 2149587 ####[address] [place], [place] [address]Jgbiowdu mean volume (Bld) [Entitic vol]7.0 fLNormal6.4-10.8[facility] Health CenterComment on above:Performed By: #### 8730336, 10551275, 6164230, 0098946 ####[address] [place], [place] [address]TTY4.1 E12/LNormal 4.3-5.9[facility] CenterComment on above:Performed By: #### 9114979, 43897240, 0813710, 7714517 ####[address] [address]HDS8.5 E9/LNormal4.0-11.0[facility] CenterComment on above:Performed By: #### 1115617, 32001359, 0137124, 6605898 ####[address] [address] Capillary Glucose POCon 45-81-0780Asjjjrl [Mass/Vol]198 mg/hMDzap44-75WghyvtSouthwest General Health CenterComment on above:Result Comment: Notified RN/KENROYerformed By: #### [id number] ####[address] [address]Nqscnkbpa Clinical Summaryon 88-87-7623Jsuqrqait Clinical SummaryNoOur Lady of Mercy HospitalInpatient Patient Summaryon 09-16-2023 Inpatient Patient SummaryNoOur Lady of Mercy HospitalInpatient Patient SummaryNoOur Lady of Mercy HospitalInterdisciplinary Note - Case Manageron 08-06-6486Vulpkgfecnhphbbqg Note - Case ManagerPatient DC before CRM rounded in room todayNoOur Lady of Mercy HospitalComment on above:Result Comment: Electronically Signed By: Jodee Giang\.br\Date and Time Signed: 09/16/23 11:26 ESTMagnesiumon 25-17-7541Ruhrsvftn [Mass/Vol]1.9 mg/dLNormal1.3-2.4FCleveland Clinic Mercy HospitalComment on above:Performed By: #### 1087183, 70640103, 0541565, 1935919 ####[facility] [address] [place], [place] [address]Pcstfnb Recordon 55-81-5991Eabqxiv Record [id number]#1.00TIFFNormalSouthwest General Health CenterMonitor [id number]#1.00TIFFNormal Southwest General Health CenterMonitor Record [id number]#1.00TIFNoOur Lady of Mercy HospitaleGFRon 67-67-6728aMMM53 mL/min/1.73 m2Low>=59[facility] Comment on above:Order Comment: Order added by Discern Expert.Performed By: #### 5839342, 20497565, 7174926, 1581802 ####[address] [place], [place] [address]DTQhp 80-67-7622Bwsux gap [Moles/Vol] 8 mmol/LNormal6-16[facility] CenterComment on above:Performed By: #### 6943991, 9758049, 72519057 ####[address] [address]HHU/Creat Ratio25 No EsozmJybj38-05TxuszzSouthwest General Health CenterComment on above:Performed By: #### 3538436, 6325879, 03953129 ####[facility] [address] [place] [address] Calcium [Mass/Vol]8.4 mg/dLLow8.9-11.1FCleveland Clinic Mercy HospitalComment on above:Performed By: #### 1370942, 3224932, 42300038 ####[facility] [address] [place], [place] [address]Holfgnon [Moles/Vol]94 mmol/L Qqe308-803AtymfpSouthwest General Health CenterComment on above:Performed By: #### 9056510, 4865398, 03598599 ####[address] [address]WJ6 [Moles/Vol]38 mmol/BWyfo11-31JnmrciSouthwest General Health CenterComment on above:Performed By: #### 7331872, 4567428, 75509207 ####[address] [address] Creatinine [Mass/Vol]1.7 mg/dLHigh0.5-1.3FCleveland Clinic Mercy HospitalComment on above:Performed By: #### 5485614, 6690560, 38077025 ####[address] [address]Tihckyz [Mass/Vol]154 mg/dL Xcnqli10-007CgaqhuSouthwest General Health CenterComment on above:Performed By: #### [id number], [id number], [id number] ####[address] [address]Aoadheylf [Moles/Vol]4.1 mmol/LNormal3.5-5.3FCleveland Clinic Mercy HospitalComment on above:Performed By: #### [id number], [id number], [id number] ####[address] [address]Fpvrec [Moles/Vol]136 mmol/CGnlffb333-829FsulxoSouthwest General Health CenterComment on above:Performed By: #### [id number], [id number], [id number] ####[address] [address]Zvld nitrogen [Mass/Vol]43 mg/dLHigh5-21Southwest General Health CenterComment on above:Performed By: #### [id number], [id number], [id number] ####[address] [address]Z [place] 59-01-5650Ugfpm CultureNormalSouthwest General Health CenterComment on above:Performed By: #### [id number] ####[id number] [place], [place] [address]FZO w/ Auto Diffon 67-28-3515Gipmhbkn Absolute0.0 E9/LNormal0.0-0.2[facility] Comment on above:Performed By: #### [id number] ####[address] [address]Kyhcdxlss/100 WBC (Bld)0.6 %Normal 0.0-2.0South[facility] General Health CenterComment on above:Performed By: #### [id number] ####[address] [address]Vny Absolute0.3 E9/LNormal0.0-0.5FCleveland Clinic Mercy HospitalComment on above: Performed By: #### [id number] ####[address] [address]Jeqgvgmciia/100 WBC (Bld)5.0 %Normal0.0-8.0South[facility] General Health CenterComment on above:Performed By: #### [id number] ####[address] [address]Lodaozkvpfy distribution width (RBC) [Ratio]17.9 %High10.9-14.2FC[facility] Mercy Hospital Comment on above:Performed By: #### [id number] ####[address] [address]Lhxecdughl (Bld) [Volume fraction] 45.0 %Uigtpz85.7-49.0[facility] CenterComment on above:Performed By: #### [id number] ####[address] [address]Xwafgasuzz (Bld) [Mass/Vol]14.3 g/uKOfuets37.5-17.5FCleveland Clinic Mercy HospitalComment on above:Performed By: #### 0492436 ####[address] [address]Hbrwf Absolute1.3 E9/LNormal 1.0-4.0[facility] CenterComment on above:Performed By: #### 3535932 ####[address] [address] Lymphocytes/100 WBC (Bld)19.3 %Vpdnxg36.0-50.0[facility] CenterComment on above:Performed By: #### 2601977 ####[address] [address]VGQ (RBC) [Entitic mass]27.5 pgNormal 27.0-34.0[facility] CenterComment on above:Performed By: #### 3140300 ####[address] [address]ZESU (RBC) [Mass/Vol]31.6 g/iPItgtvg14.4-36.0[facility] CenterComment on above:Performed By: #### 5570150 ####[address] [address]EZY (RBC) [Entitic vol]87.1 eBHjdqft71.0-100.0 [facility] CenterComment on above:Performed By: #### [id number] ####[address] [address]Durs Absolute0.7 E9/LNormal0.2-1.0[facility] CenterComment on above: Performed By: #### 9384523 ####[address] [address]Aemazahol/100 WBC (Bld)10.9 %Normal4.0-14.0[facility] CenterComment on above:Performed By: #### 3692710 ####[address] [address]Aocuhk Absolute4.2 E9/LNormal2.0-7.5FCleveland Clinic Mercy HospitalComment on above:Performed By: #### 4551885 ####[address], [place] [address]Jcbjll Auto64.2 %Myssri07.0-75.0[facility] CenterComment on above:Performed By: #### 2466593 ####[address] [address]Oucqjyph347.0 E9/TIvbqav045.0-500.0[facility] CenterComment on above:Performed By: #### 3260694 ####[address] [address]Sfbquzda mean volume (Bld) [Entitic vol]7.0 fLNormal6.4-10.8[facility] CenterComment on above:Performed By: #### [id number] ####[address] [address]REH9.2 E12/LNormal4.3-5.9[facility] CenterComment on above:Performed By: #### [id number] ####[address] [address]TTF2.6 E9/LNormal4.0-11.0 [facility] CenterComment on above:Performed By: #### 8928459 ####[address] [address] Capillary Glucose POCon 33-51-0706Lvnhmnx [Mass/Vol]230 mg/sTFqvr65-84ExqqmeSouthwest General Health CenterComment on above:Performed By: #### [id number] ####[address] [address]Smahbpk [Mass/Vol]187 mg/eTUfey63-46NomqkkSouthwest General Health CenterComment on above:Result Comment: Notified RN/MDPerformed By: #### [id number] ####[address] [address]Gjigsro [Mass/Vol]281 mg/dL Qbtj32-33EuyykuSouthwest General Health CenterComment on above:Result Comment: Notified RN/MDPerformed By: #### [id number] ####[facility] Tcqyteij[address] [place], [place] [address]Atskzto [Mass/Vol]298 mg/uWJqzp68-15MjondfSouthwest General Health CenterComment on above:Result Comment: Notified RN/MDPerformed By: #### [id number] ####[facility] Mgaeofsqtm[address] [place], [place] [address]Cvprkmn [Mass/Vol]167 mg/wLMcdl84-25LoecqvSouthwest General Health CenterComment on above:Result Comment: Notified RN/MDPerformed By: #### [id number] ####[facility] Akkzbdphfx656 [place] [address] Interdisciplinary Note - Case Manageron 42-78-6129Uzawljewmjprxfluy Note - Case ManagerNoOur Lady of Mercy HospitalComment on above:Result Comment: Electronically Signed By: Sasha Garcia\.br\Date and Time Signed: 09/15/23 15:52 ESTMagnesiumon 81-11-0082Dymumnfvd [Mass/Vol]1.7 mg/dLNormal1.3-2.4FCleveland Clinic Mercy HospitalComment on above:Performed By: #### 8849840, 2814548, 22286522 ####[facility] [address] [place] [address]Kupbtkks Note-Physicianon 77-89-2237Hidjjpca Note-PhysicianAvita Health System Galion HospitalComment on above:Result Comment: Electronically Signed By: Ida LYMAN, Tonya Raghavendra\.br\Date and Time Signed: 09/15/23 16:08 ESTProgress Note-PhysicianAvita Health System Galion HospitalComment on above:Result Comment: Electronically Signed By: Jose LYMAN, Kayla\.br\Date and Time Signed: 09/15/23 10:03 ESTeGFRon 96-31-7202wJHP93 mL/min/1.73 m2Low>=59[facility] CenterComment on above:Order Comment: Order added by Discern Expert.Performed By: #### 0538719, 5943271, [id number] ####[facility] [address] [place], [place] [address]IKEfi 92-15-2589Wpgdn gap [Moles/Vol] 13 mmol/LNormal6-16[facility] CenterComment on above:Performed By: #### 4464548, 38968094 ####[facility] [address]qsbv[address] [place], [place] [address]IEA/Creat Ratio24 No FkhstQsdl11-48LlnpdnSouthwest General Health CenterComment on above:Performed By: #### 5126666, 10675294 ####[address] [address]Ucgnugr [Mass/Vol]8.6 mg/dLLow8.9-11.1FC[facility] Clinic Mercy HospitalComment on above:Performed By: #### 3512700, 08206981 ####[address] [address]Rzbmllph [Moles/Vol]94 mmol/WSks097-237OyfmscSouthwest General Health CenterComment on above:Performed By: #### 4752098, 06608413 ####[address] [address]KS6 [Moles/Vol]33 mmol/GEwqs87-48CvomciSouthwest General Health CenterComment on above:Performed By: #### 2731851, 89818414 ####[address] [address]Jwytyrlubb [Mass/Vol]1.9 mg/dLHigh0.5-1.3FC[facility] Mercy HospitalComment on above:Performed By: #### 2070415, 91035190 ####[address] [address]Ewnbwxy [Mass/Vol]215 mg/oCUrnk37-195RbwherSouthwest General Health CenterComment on above: Performed By: #### 7954644, 23541977 ####[address] [address]Vqzozbhcw [Moles/Vol]4.3 mmol/LNormal 3.5-5.3FC[facility] Mercy HospitalComment on above:Performed By: #### 4289401, 30223318 ####[address] [address]Aapsse [Moles/Vol]136 mmol/MEtgnmj494-788DpoxleSouthwest General Health CenterComment on above:Performed By: #### 0174677, 33890511 ####[address] [address]Bgul nitrogen [Mass/Vol]46 mg/dLHigh 5-21[facility] CenterComment on above:Performed By: #### 3607270, 33309879 ####[address] [address]Dshan gap [Moles/Vol]9 mmol/LNormal6-16[facility] CenterComment on above:Performed By: #### 80281739, 7063248 ####[address] [address]WMO/Creat Ratio26 No DepvbGqut63-23 [facility] CenterComment on above:Performed By: #### 61269479, 9497078 ####[address] [address] Calcium [Mass/Vol]8.7 mg/dLLow8.9-11.1FC[facility] Clinic Mercy HospitalComment on above:Performed By: #### 59777740, 0609307 ####[address] [address]Uxjmqhde [Moles/Vol]96 mmol/LLow 101-111[facility] CenterComment on above:Performed By: #### 89489244, 0699909 ####[address] [address]JP2 [Moles/Vol]35 mmol/HZlyx57-63FodgmoSouthwest General Health CenterComment on above:Performed By: #### 51290580, 5737284 ####[address], [place] [address]Zknnmckomn [Mass/Vol]1.8 mg/dLHigh 0.5-1.3FC[facility] Clinic Mercy HospitalComment on above:Performed By: #### 51388897, 5227899 ####[facility] [address] [place], [place] [address]Gapdutm [Mass/Vol]226 mg/aHVyhj18-636MrfvxvSouthwest General Health CenterComment on above:Performed By: #### 53356835, 5522350 ####[facility] [address]qxwovgk[address] [place], [place] [address]Ytiitehia [Moles/Vol]4.4 mmol/LNormal 3.5-5.3FC[facility] Mer[facility] HospitalComment on above:Performed By: #### 75469772, 3139137 ####[address] [address]Ihbrbr [Moles/Vol]136 mmol/DJhautu511-284GpvtzjSouthwest General Health CenterComment on above:Performed By: #### 07203862, 3776459 ####[address] [address]Ybzc nitrogen [Mass/Vol]46 mg/dLHigh 5-21[facility] CenterComment on above:Performed By: #### 37173101, 2704988 ####[address] [address]Wyrzy gap [Moles/Vol]8 mmol/LNormal6-16[facility] CenterComment on above:Performed By: #### 3829338, 1185628, 2132012, 14837413 ####[address] [address]LAC/Creat Ratio25 No TnpnzJtva41-02RjpkosSouthwest General Health CenterComment on above:Performed By: #### 9651403, 6519912, 7750574, 07744248 ####[facility] [address] [place], [place] [address]Zfkypvh [Mass/Vol]8.3 mg/dLLow 8.9-11.1FC[facility] Mercy HospitalComment on above:Performed By: #### 4087734, 8866758, 7629334, 29299531 ####[address] [address]Bkfqsdml [Moles/Vol]97 mmol/DNex833-430ZybpsiSouthwest General Health CenterComment on above:Performed By: #### 8088375, 4358527, 0156106, 88205244 ####[address] [address]ZI9 [Moles/Vol]36 mmol/PRids63-20TxgbhwSouthwest General Health CenterComment on above:Performed By: #### 4412634, 9364698, 4989955, 34852668 ####[address] [address]Mwnwbvsvtf [Mass/Vol] 1.9 mg/dLHigh0.5-1.3FC[facility] Mercy HospitalComment on above:Performed By: #### 8107504, 6003632, 3036760, 99024503 ####[address] [address]Zybcfuc [Mass/Vol]172 mg/dLNormal 55-199[facility] CenterComment on above:Performed By: #### 0292193, 6672532, 5584095, 58145818 ####[address] [address]Fjcanqyck [Moles/Vol]4.5 mmol/LNormal3.5-5.3FC[facility] Mer[facility] HospitalComment on above:Performed By: #### 7999518, 2031474, 5946776, 21840016 ####[address] [address]Qsnnmx [Moles/Vol]136 mmol/QNsnngr508-720QpovmzSouthwest General Health CenterComment on above:Performed By: #### 7763357, 5897897, 5246961, 00139724 ####[address] [place], [place] [address]Ibpf nitrogen [Mass/Vol]47 mg/dLHigh5-21[facility] CenterComment on above:Performed By: #### 1574238, 1290980, 0289043, 26771866 ####[facility] [address]af[address], [place] [address]Lfext gap [Moles/Vol] 10 mmol/LNormal6-16[facility] CenterComment on above:Performed By: #### 07511764, 9208664 ####[facility] [address] [place], [place] [address]UPR/Creat Ratio25 No EbfgtQgmj14-65McaievSouthwest General Health CenterComment on above:Performed By: #### 81294633, 9877604 ####[facility] [address] [place] [address]Vvvhlfx [Mass/Vol]8.3 mg/dLLow8.9-11.1FC[facility] HospitalComment on above:Performed By: #### 79534174, 4479080 ####[facility] [address] [place], [place] [address]Tpdqzhar [Moles/Vol]96 mmol/MBwf044-674XjenyzSouthwest General Health CenterComment on above:Performed By: #### 07277418, 6101957 ####[facility] [address]gtmvk[address] [place], [place] [address]WQ2 [Moles/Vol]35 mmol/TDiwy66-54PonwynSouthwest General Health CenterComment on above:Performed By: #### 10611400, 8386646 ####[facility] [address] [place], [place] [address]Gcopfspbhu [Mass/Vol]1.9 mg/dLHigh0.5-1.3FC[facility] HospitalComment on above:Performed By: #### 93880627, 6250931 ####[facility] [address]ij[address], [place] [address]Wafgitj [Mass/Vol]284 mg/wCYdku40-828UbxrqrSouthwest General Health CenterComment on above: Performed By: #### 45619912, 7182056 ####[address] [address]Pwmdgxgum [Moles/Vol]4.6 mmol/LNormal 3.5-5.3FC[facility] HospitalComment on above:Performed By: #### 64312924, 2471686 ####[address] [address]Wqqmaq [Moles/Vol]136 mmol/ODrujpb795-454FmxumgSouthwest General Health CenterComment on above:Performed By: #### 12411869, 8434955 ####[address] [address]Pcrc nitrogen [Mass/Vol]48 mg/dLHigh 5-21[facility] CenterComment on above:Performed By: #### 04247187, 0387604 ####[address] [address]TYI w/ Auto Diffon 42-54-6741Gmddqfpz Absolute0.1 E9/LNormal0.0-0.2FC[facility] HospitalComment on above:Performed By: #### 4716694, 0486730, 9299679, 96080834 ####[address] [address]Nvbtpvcdl/100 WBC (Bld)1.0 %Normal0.0-2.0[facility] CenterComment on above:Performed By: #### 1410753, 6280547, 1022674, 74387439 ####[address] [address]Vii Absolute0.2 E9/LNormal0.0-0.5FC[facility] Mercy HospitalComment on above:Performed By: #### 1307407, 0418356, 7489452, 44369779 ####[address] [address]Aoawqkjhusf/100 WBC (Bld)3.1 %Normal0.0-8.0[facility] CenterComment on above:Performed By: #### 4535605, 8336726, 6408959, 77135380 ####[address] [address]Ahxsuzmnlvb distribution width (RBC) [Ratio]18.1 %High10.9-14.2FC[facility] Mercy HospitalComment on above:Performed By: #### 9448287, 8621029, 1984353, 63769844 ####[address] [address]Jlqyferhgp (Bld) [Volume fraction] 42.0 %Bppmrh03.7-49.0[facility] CenterComment on above:Performed By: #### 9078887, 9206295, 2702265, 79954015 ####[address] [address]Qkfdkkaaiw (Bld) [Mass/Vol]13.3 g/dL Low13.5-17.5FC[facility] Mercy HospitalComment on above:Performed By: #### 7768012, 0176619, 3824192, 43087046 ####[address] [address]Irfml Absolute1.9 E9/LNormal1.0-4.0 [facility] CenterComment on above:Performed By: #### 3406351, 4547440, 4266892, 21792230 ####[address] [address]Sakxsocqfkh/100 WBC (Bld)23.5 %Jejnyg30.0-50.0[facility] CenterComment on above:Performed By: #### 9519178, 7488599, 0795835, 56974032 ####[address] [place], [place] [address]FXE (RBC) [Entitic mass]27.8 gjNmqeve44.0-34.0[facility] Comment on above:Performed By: #### 5911803, 0276590, 8187677, 37133997 ####[address] [address]FLXR (RBC) [Mass/Vol]31.7 g/mKTqdcfl22.4-36.0[facility] CenterComment on above:Performed By: #### 5787324, 9528178, 4626555, 16380218 ####[address] [address]XJP (RBC) [Entitic vol]87.6 pMYcqyll36.0-100.0[facility] CenterComment on above:Performed By: #### 4804967, 1781273, 6638570, 96715733 ####[address] [address]Adql Absolute0.8 E9/LNormal0.2-1.0 [facility] CenterComment on above:Performed By: #### 8864708, 9370490, 3478650, 24123456 ####[address] [address]Jzjtgpzmq/100 WBC (Bld)10.0 %Normal4.0-14.0[facility] CenterComment on above:Performed By: #### 4073097, 5898049, 2092659, 07766730 ####[address] [address]Ztafap Absolute5.0 E9/LNormal2.0-7.5FC[facility] Mercy HospitalComment on above:Performed By: #### 7239609, 6368562, 0425186, 15966453 ####[address] [address]Gxlfst Auto62.4 % Kvjgee30.0-75.0[facility] CenterComment on above:Performed By: #### 6222478, 6016027, 1647834, 48867561 ####[address] [address]Ivmojlth074.0 E9/EWwkmdd056.0-500.0 [facility] CenterComment on above:Performed By: #### 5417364, 6596973, 3547775, 21397050 ####[facility] [address] [place], [place] [address]Opfxjzoh mean volume (Bld) [Entitic vol]6.8 fLNormal6.4-10.8 [facility] CenterComment on above:Performed By: #### 7964485, 7049904, 5443231, 98517243 ####[address] [place], [place] [address]KFN3.8 E12/LNormal4.3-5.9[facility] CenterComment on above:Performed By: #### 8881560, 1083709, 2370409, 60058855 ####[address] [address]NLE6.9 E9/LNormal 4.0-11.0[facility] CenterComment on above:Performed By: #### 4847553, 8454828, 3722433, 76249797 ####[address] [address]XW Abdomen/Pelvis w/o Contraston 52-15-7934HD Abdomen/Pelvis w/o ContrastNormalSouthwest General Health CenterCapillary Glucose POCon 68-25-9277Yfgxenj [Mass/Vol]294 mg/gEVhex38-38Krxsin[address] Comment on above:Result Comment: Notified RN/MDPerformed By: #### [id number] ####[address] [place] [address] Glucose [Mass/Vol]244 mg/fLDemv13-22Zkcapr35 [address] StreetComment on above: Result Comment: Notified RN/MDPerformed By: #### [id number] ####[facility] Uxsreunsaj[address] [place], [place] [address]Jdhvwoi [Mass/Vol]284 mg/jAPufz18-90Jtvxqg[address] CenterComment on above:Result Comment: Notified RN/KENROYerformed By: #### [id number] ####[facility] [address] Baezun[facility] medical [place]gr[place], [place] [address]Cmcbxrk [Mass/Vol]164 mg/zXBwcl74-93 [facility] CenterComment on above:Result Comment: Notified RN/MD Performed By: #### [id number] ####[facility] [address] [place], [place] [address]Njtnhmmxkvxqmdgfv Note - Case Manageron 09-14-2023 Interdisciplinary Note - Case ManagerNormDunlap Memorial HospitalComment on above:Result Comment: Electronically Signed By: Jodee Giang\.br\Date and Time Signed: 09/14/23 10:25 ESTInterdisciplinary Note - OTon 09-14-2023 Interdisciplinary Note - OTOT [facility] six clicks score = SNF. Patient requires assist w/ all transfers and adls when compared to baseline. Pt does live home alone. Inpatient OT services to follow daily to progress as tolerates w/ functional skills.NormalSouthwest General Health CenterMagnesiumon 09-14-2023 Magnesium [Mass/Vol]1.8 mg/dLNormal1.3-2.4FC[facility] Clinic Mercy HospitalComment on above:Performed By: #### 1085035, 1316678, 2767957, 32715439 ####[facility] [address] [place], [place] [address]Klenjkx from Medicare on 87-42-5330Fyymcsf from Medicare [id number]#1.00TIFFNormalSouthwest General Health CenterMonitor Recordon 31-81-4818Cmmspli Record [id number]#1.00TIFFNormalSouthwest General Health CenterMonitor [id number]#1.00TIFFNormal [facility] CenterProgress Note-Physicianon 14-16-2849Dtzfggfx Note-[facility] HospitalComment on above:Result Comment: Electronically Signed By: Sasha Stevens NP\.br\Date and Time Signed: 09/14/23 15:54 EST\.br\Electronically Co-Signed By: Flakita Morgan MD\.br\Date and Time Co-Signed: 09/14/2419:02 ESTProgress Note-[facility] HospitalComment on above:Result Comment: Electronically Signed By: Shaquille Alex Jr., PA-C\.br\Date and Time Signed: 09/14/23 19:56 ESTProgress Note-[facility] HospitalComment on above:Result Comment: Electronically Signed By: Rowdy LYMAN, Unruly Laurent\.br\Date and Time Signed: 09/14/23 19:53 ESTProgress Note-[facility] Comment on above:Result Comment: Electronically Signed By: Kayla Garcia MD\.br\Date and Time Signed: 09/14/23 12:47 ESTeGFRon 09-20-7550jNBY56 mL/min/1.73 m2Low>=59[facility] Health CenterComment on above:Order Comment: Order added by Discern Expert.Performed By: #### 5167767, 99718235 ####[facility] [address], [place] [address]xVEB11 mL/min/1.73 m2Low>=59[facility] Health CenterComment on above:Order Comment: Order added by Discern Expert.Performed By: #### 31563312, 4257008 ####[facility] [address], [place] [address]zXJM93 mL/min/1.73 m2Low>=59[facility] Health CenterComment on above:Order Comment: Order added by Discern Expert.Performed By: #### 1440725, 3239892, 8277849, 97329552 ####[facility] [address], [place] [address]lRZM89 mL/min/1.73 m2Low>=59[facility] Medical CenterComment on above: Order Comment: Order added by Discern Expert.Performed By: #### 91627115, 7699213 ####[address] [place], [place] [address]WGVnp 86-89-8845Hsctl gap [Moles/Vol]9 mmol/LNormal6-16[facility] CenterComment on above:Performed By: #### 2952409, 54453258 ####[address] [address]MMS/Creat Ratio26 No IfqbvFbgk89-58ZcmvghSouthwest General Health CenterComment on above:Performed By: #### 9590432, 45643898 ####[address] [place], [place] [address]Vvztbbd [Mass/Vol]8.5 mg/dLLow8.9-11.1FC[facility] Clinic Mercy HospitalComment on above:Performed By: #### 2102946, 55344384 ####[address] [address]Xaagbqxj [Moles/Vol]96 mmol/GEjh018-772VoevgeSouthwest General Health CenterComment on above:Performed By: #### 7031331, 19950604 ####[address] [address]LF5 [Moles/Vol]34 mmol/KLbfn63-76RiznqaSouthwest General Health Center Comment on above:Performed By: #### 6709186, 27892746 ####[address] [place], [place] [address]Pfjzazlhms [Mass/Vol]2.0 mg/dL High0.5-1.3FC[facility] HospitalComment on above:Performed By: #### 4330195, 01726878 ####[address] [place], [place] [address]Sdegjcx [Mass/Vol]340 mg/uCBjen41-728VexlvhSouthwest General Health CenterComment on above:Performed By: #### 9891487, 07248728 ####[facility] [address] [place], [place] [address]Zgtcobyni [Moles/Vol] 5.0 mmol/LNormal3.5-5.3FC[facility] HospitalComment on above:Performed By: #### 4438221, 49686803 ####[address] [address]Kmrrpz [Moles/Vol]134 mmol/FJpr670-028YqzahlSouthwest General Health CenterComment on above:Performed By: #### 1790252, 54231274 ####[address] [address]Fimq nitrogen [Mass/Vol]51 mg/dLHigh5-21[facility] CenterComment on above:Performed By: #### 9556043, 83200299 ####[address] [address]Imcmc gap [Moles/Vol]10 mmol/LNormal6-16[facility] CenterComment on above:Performed By: #### 85029193, 2581388 ####[address] [address] BUN/Creat Ratio26 No TdsqqBdxb73-88DcvpqkSouthwest General Health CenterComment on above: Performed By: #### 40786957, 0680935 ####[address] [address]Xqyukau [Mass/Vol]8.6 mg/dLLow 8.9-11.1FC[facility] Mer[facility] HospitalComment on above:Performed By: #### 83826911, 4278181 ####[address] [address]Trksvfzo [Moles/Vol]100 mmol/ZNac754-252McnjmlSouthwest General Health CenterComment on above:Performed By: #### 55108318, 5816484 ####[address] [address]LY5 [Moles/Vol]33 mmol/TQfsj26-17 [facility] CenterComment on above:Performed By: #### 73993274, 7451670 ####[address] [address] Creatinine [Mass/Vol]2.0 mg/dLHigh0.5-1.3FC[facility] HospitalComment on above:Performed By: #### 05638790, 2474782 ####[address] [address]Tkxlpkv [Mass/Vol]239 mg/vOKayx21-770 [facility] CenterComment on above:Performed By: #### 63228587, 5532938 ####[address] [address] Potassium [Moles/Vol]5.0 mmol/LNormal3.5-5.3FC[facility] HospitalComment on above:Performed By: #### 26296942, 9555791 ####[address] [address]Vrxvma [Moles/Vol]138 mmol/LNormal 135-145[facility] Health CenterComment on above:Performed By: #### 38246595, 3409108 ####[address] [address]Zkpg nitrogen [Mass/Vol]51 mg/dLHigh5-21[facility] CenterComment on above:Performed By: #### 23961177, 1242768 ####[address] [address]Gjlqz gap [Moles/Vol]10 mmol/LNormal 6-16[facility] CenterComment on above:Performed By: #### 57804217, 1303456 ####[address] [address]XGO/Creat Ratio26 No NeaslMlde42-22KwsstmSouthwest General Health CenterComment on above:Performed By: #### 53112957, 6085577 ####[address], [place] [address]Klmrxcb [Mass/Vol]8.7 mg/dLLow 8.9-11.1FC[facility] Mercy HospitalComment on above:Performed By: #### 83450888, 7649859 ####[facility] [address] AveNrockville [facility] [place], [place] [address]Sxsctxcg [Moles/Vol]101 mmol/VYerhgb288-014HrcbbxSouthwest General Health Center Comment on above:Performed By: #### 88419616, 3468194 ####[facility] [address]oulmsr[address] [facility], [place] [address]LO9 [Moles/Vol]33 mmol/LHigh 21-31[facility] CenterComment on above:Performed By: #### 11311778, 9267460 ####[address] [facility] [address]Ddpjxcmckl [Mass/Vol]2.0 mg/dLHigh0.5-1.3FC[facility] HospitalComment on above:Performed By: #### 10883433, 8366695 ####[facility] [address]keqszr[address] [facility], [place] [address]Kpkovjb [Mass/Vol]149 mg/dLNormal 55-199[facility] Health CenterComment on above:Performed By: #### 19218807, 5820120 ####[facility] [address]job[address] [place], [place] [address]Ovkywegyc [Moles/Vol]4.9 mmol/LNormal3.5-5.3[facility] Comment on above:Performed By: #### 80919114, 5956436 ####[facility] [address] [facility], [place] [address]Pvnbiq [Moles/Vol]139 mmol/L Pzoaxp430-689OsdbhhSouthwest General Health CenterComment on above:Performed By: #### 29784257, 7628042 ####[facility] [address] [facility], [place] [address]Aqgf nitrogen [Mass/Vol]51 mg/dLHigh5-21[facility] CenterComment on above:Performed By: #### 42608194, 1341034 ####[facility] [address] [place], [place] [address]Tzbqu gap [Moles/Vol] 11 mmol/LNormal6-16Southwest General Health CenterComment on above:Performed By: #### [id number], [id number] ####[facility] [address] [place], [place] [address]USV/Creat Ratio26 No QcyfdXqni60-60RuqsrvSouthwest General Health CenterComment on above:Performed By: #### [id number], [id number] ####[address] [place], [place] [address]Zsvqafa [Mass/Vol]8.6 mg/dLLow8.9-11.1FCleveland Clinic Mercy HospitalComment on above:Performed By: #### [id number], [id number] ####[address] [address]Mqrxhdhq [Moles/Vol]103 mmol/XSoouon025-197TsukkeSouthwest General Health CenterComment on above:Performed By: #### [id number], 77938324 ####[address] [address]SW7 [Moles/Vol] 31 mmol/YAiqxdc38-01SckpqeSouthwest General Health CenterComment on above:Performed By: #### [id number], [id number] ####[address] [address]Gpordglbwm [Mass/Vol]2.1 mg/dLHigh0.5-1.3FCleveland Clinic Mercy HospitalComment on above:Performed By: #### 0191210, [id number] ####[address] [place], [place] [address]Xepsmpp [Mass/Vol]154 mg/nDMrlagh50-375HutbtoSouthwest General Health CenterComment on above: Performed By: #### 8310333, 87572985 ####[address] [place], [place] [address]Rtlnfplok [Moles/Vol]5.2 mmol/LNormal 3.5-5.3FCleveland Clinic Mercy HospitalComment on above:Performed By: #### 1392656, [id number] ####[facility] [address] [place], [place] [address]Uvilsp [Moles/Vol]140 mmol/YDeoaby443-182LsovqwSouthwest General Health CenterComment on above:Performed By: #### 6895114, [id number] ####[facility] [address] [place], [place] [address]Jada nitrogen [Mass/Vol]54 mg/dLHigh 5-21South[facility] General Health CenterComment on above:Performed By: #### 9448147, 59058581 ####[facility] [address] [place] [address]Vrpqc gap [Moles/Vol]8 mmol/LNormal6-16[facility] General Health CenterComment on above:Performed By: #### 1489507, 9136212, 38028341 ####[address] [address]YDM/Creat Ratio25 No UnitsHigh 10-20South[facility] General Health CenterComment on above:Performed By: #### 6734678, 3054972, 50529689 ####[address] [address]Yixevfk [Mass/Vol]8.3 mg/dLLow8.9-11.1FCleveland Clinic Mercy HospitalComment on above:Performed By: #### 4602482, 4953615, 83847496 ####[facility] [address] [place], [place] [address]Aqsjuxkm [Moles/Vol]104 mmol/DOycmyy951-249AxbikoSouthwest General Health CenterComment on above: Performed By: #### 1902232, 0530169, 90758824 ####[facility] [address] [place] [address]HL0 [Moles/Vol]33 mmol/XOlkp15-69 [facility] Health CenterComment on above:Performed By: #### 7154797, 8035031, 61809886 ####[address] [address]Migbiqhnwz [Mass/Vol]2.2 mg/dLHigh0.5-1.3FCleveland Clinic Mercy HospitalComment on above:Performed By: #### 4545906, 4360454, 33608942 ####[address] [address]Otrkfch [Mass/Vol]170 mg/dL Odrnem40-955VjzdabSouthwest General Health CenterComment on above:Performed By: #### 9293956, 6035961, 51487139 ####[address] [address]Coozjglla [Moles/Vol]5.4 mmol/LHigh3.5-5.3FCleveland Clinic Mercy HospitalComment on above:Performed By: #### 0556062, 2785458, 28661845 ####[address] [address]Plaexf [Moles/Vol]140 mmol/ZDoaluw985-108UdydhhSouthwest General Health CenterComment on above:Performed By: #### 1685110, 6897579, 18750815 ####[address] [address]Cqhm nitrogen [Mass/Vol]55 mg/dLHigh5-21[facility] Health CenterComment on above:Performed By: #### 1607283, 6619055, 76436919 ####[address] [address]Nqqbb gap [Moles/Vol]10 mmol/LNormal6-16[facility] Health CenterComment on above:Performed By: #### 4895656, 93001820 ####[address] [address] BUN/Creat Ratio24 No AashtTpsn26-43RbtazqSouthwest General Health CenterComment on above: Performed By: #### 7678002, 69308642 ####[facility] [address] [place], [place] [address]Hgwrfif [Mass/Vol]8.6 mg/dLLow 8.9-11.1FCleveland Clinic Mercy HospitalComment on above:Performed By: #### 0944176, 93527233 ####[address] [place], [place] [address]Vmwghonv [Moles/Vol]105 mmol/SPtuyiv539-411NuiktdSouthwest General Health Center Comment on above:Performed By: #### 2977291, 86655014 ####[address] [place], [place] [address]WM6 [Moles/Vol]30 mmol/LNormal 21-31South[facility] General Health CenterComment on above:Performed By: #### 4595018, 68552487 ####[address] [address]Gtchaeivcx [Mass/Vol]2.3 mg/dLHigh0.5-1.3FCleveland Clinic Mercy HospitalComment on above:Performed By: #### 2488814, 92410256 ####[address] [address]Guhltqa [Mass/Vol]208 mg/gSOkxm15-400 [facility] CenterComment on above:Performed By: #### 5945738, 39077117 ####[facility] [address] [place] [address] Potassium [Moles/Vol]5.2 mmol/LNormal3.5-5.3FCleveland Clinic Mercy HospitalComment on above:Performed By: #### 8065570, 09674128 ####[facility] [address] [place], [place] [address]Ljwodu [Moles/Vol]140 mmol/LNormal 135-145South[facility] General Health CenterComment on above:Performed By: #### 8668619, 88847883 ####[facility] [address] [place], [place] [address]Epsc nitrogen [Mass/Vol]54 mg/dLHigh5-21[facility] Health CenterComment on above:Performed By: #### 0017458, 64426212 ####[address] [address]Ycbpw Gas Art, with Lytes, Gluc, Lact on 4a/A Ratio Art37.80 %Normal>=0.80[facility] General Health CenterComment on above:Performed By: #### [id number] ####[address] [address]VsDN0 Arx108.0 mmHgHigh5.0-15.0[facility] Health CenterComment on above:Performed By: #### [id number] ####[address] [address]HRR. Rate16 Invalid Interpretation [facility] CampusComment on above:Performed By: #### [id number] ####[address] [address]Hgmavv TestPositiveNormalSouthwest General Health CenterComment on above:Performed By: #### [id number] ####[address] [address]Cird Excess Arterial6.3 mmol/LNormal >=2.8[facility] Health CenterComment on above:Performed By: #### [id number] ####[address] [address]FzXMP 20/8Invalid Interpretation [facility] CampusComment on above: Performed By: #### [id number] ####[address] [address]xOa4+ Art4.87 mg/dLNormal4.40-5.30[facility] Health CenterComment on above:Performed By: #### [id number] ####[address] [address]fBo- Srw659.0 mmol/L Fdqarx626.0-111.0[facility] CenterComment on above:Performed By: #### [id number] ####Rickey [address] [address]lRhi Azc386 mg/nJPbnb36-26HhdjfkSouthwest General Health CenterComment on above: Performed By: #### [id number] ####Rickey [address] [address]gY+ Art5.3 mmol/LNormal3.5-5.3FCleveland Clinic Mercy HospitalComment on above:Performed By: #### [id number] ####[address] [address]sQxy Art.7 mmol/LNormal.5-2.2 [facility] CenterComment on above:Performed By: #### [id number] ####Lang [address] [address]xUy+ Uin168.0 mmol/NNorazy063.0-145.0[facility] Health CenterComment on above: Performed By: #### [id number] ####[address] [address]Sedny bytsbInvalid Interpretation CodeSouthwest General Health CenterComment on above:Performed By: #### [id number] ####[address] [address]TBSLd Art1.1 %Low 1.5-4.9[facility] Health CenterComment on above:Result Comment: Reference rangeNonsmoker <1.5%Smoker <5.0%Heavy Smoker <9.0%Performed By: #### [id number] ####Lang [address] [address]KEZ4 BG45.0Invalid Interpretation CodeSouthwest General Health CenterComment on above: Performed By: #### [id number] ####Lang [address] [address]WOfkSj Art0.5 %Normal0.0-1.9[facility] Health CenterComment on above:Performed By: #### [id number] ####Lang [address] [address]QG1Nf Art95.9 %Normal 93.0-100.0[facility] Health CenterComment on above:Performed By: #### [id number] ####[address] [address]AHB0 (Bld) [Moles/Vol]30.1 mmol/LHigh22.0-26.0[facility] Comment on above:Performed By: #### [id number] ####[address] [address]Behvxorzgp (Bld) [Mass/Vol]14.3 g/dL Ndhvrh00.0-17.0[facility] Health CenterComment on above:Performed By: #### [id number] ####[address] [address]IZTD. Tbqr33Toptlre Interpretation [facility] CampusComment on above:Performed By: #### [id number] ####[address] [address]LI34Dmrijzv Interpretation [facility] CampusComment on above:Performed By: #### [id number] ####[address] [address]Oiblcv saturation in Blood97.5 %Mpjqbs40.0-100.0[facility] Health CenterComment on above:Performed By: #### 075750035 ####[address] [address]R CO2 Uojoqkbf08.6 fmTpVphf31.0-45.0[facility] Health CenterComment on above:Performed By: #### [id number] ####[address] [address]K O2 Xpmhyffz62.1 mmHg Ftqyrw36.0-100.0[facility] Health CenterComment on above:Performed By: #### [id number] ####[address] [address]oS Arterial7.363Pad2.350-7.450[facility] Health CenterComment on above: Performed By: #### [id number] ####[address] [address]Qqnenx SiteR RadialNormalSouthwest General Health CenterComment on above:Performed By: #### [id number] ####[address] [address]Jszdol TypeArterial DrawNormal [facility] CenterComment on above:Performed By: #### [id number] ####[address] [address]IJP w/ Auto Diffon 56-92-6772Ryzaqvno Absolute0.0 E9/LNormal0.0-0.2FC[facility] Clinic Mercy HospitalComment on above:Performed By: #### 8499559, 7762450, 93636453 ####[address] [address] Basophils/100 WBC (Bld)0.4 %Normal0.0-2.0[facility] Health CenterComment on above:Performed By: #### 2053673, 8597472, 48911324 ####[address] [address]Ozf Absolute0.0 E9/LNormal 0.0-0.5FCleveland Clinic Mercy HospitalComment on above:Performed By: #### 6181843, 3912197, 83973453 ####[address] [address]Vjeyzdwyplc/100 WBC (Bld)0.0 %Normal0.0-8.0[facility] Health CenterComment on above:Performed By: #### 1683658, 8438114, 01756891 ####[address] [address] Erythrocyte distribution width (RBC) [Ratio]17.6 %High10.9-14.2FCleveland Clinic Mercy HospitalComment on above:Performed By: #### 2629675, 8967465, 37196249 ####[address] [address] Hematocrit (Bld) [Volume fraction]43.0 %Njicuv88.7-49.0[facility] Health CenterComment on above:Performed By: #### 5164688, 1660226, 50576557 ####[address] [address]Kpbwxghhzg (Bld) [Mass/Vol]13.6 g/yFVzlzkg94.5-17.5FCleveland Clinic Mercy HospitalComment on above: Performed By: #### 1708815, 5732754, 90173131 ####[address] [address]Rypqx Absolute0.7 E9/LLow1.0-4.0 [facility] CenterComment on above:Performed By: #### 7133066, 9255770, 23749600 ####[address] [address]Pdxdswrkgje/100 WBC (Bld)10.8 %Low14.0-50.0[facility] Comment on above:Performed By: #### 5770332, 9737508, 88230490 ####[address] [address]AAN (RBC) [Entitic mass]27.7 utQanxni24.0-34.0[facility] Health CenterComment on above:Performed By: #### 2276955, 4984169, 68594581 ####[address] [address]PSCE (RBC) [Mass/Vol]31.6 g/dLNormal 31.4-36.0[facility] CenterComment on above:Performed By: #### 9165856, 2008942, 82136114 ####[address] [address]MRS (RBC) [Entitic vol]87.5 gARaiupb77.0-100.0[facility] CenterComment on above:Performed By: #### 4505930, 7540552, 89598642 ####[address] [address]Ndwa Absolute0.6 E9/LNormal0.2-1.0[facility] Health CenterComment on above: Performed By: #### 3652312, 9903262, 17760396 ####[address] [address]Aklcsobwm/100 WBC (Bld)9.5 %Normal 4.0-14.0[facility] CenterComment on above:Performed By: #### 9605076, 5703356, 63791883 ####[address] [address]Vumoqb Absolute5.0 E9/LNormal2.0-7.5FC[facility] Mercy HospitalComment on above:Performed By: #### 1038724, 1277164, 71434032 ####[address] [address]Stbeyi Auto79.3 %High36.0-75.0[facility] CenterComment on above:Performed By: #### 8707686, 5560673, 67022507 ####[address] [address]Kklizgih309.0 E9/RNzetmr807.0-500.0[facility] CenterComment on above:Performed By: #### 0170703, 3798690, 26294046 ####[address] [address] Platelet mean volume (Bld) [Entitic vol]7.2 fLNormal6.4-10.8[facility] CenterComment on above:Performed By: #### 3518026, 7115006, 54282440 ####[address] [place], [place] [address]TDK2.9 E12/L Normal4.3-5.9[facility] Health CenterComment on above:Performed By: #### 0751620, 1291934, 87744423 ####[address] [address]TGD9.3 E9/LNormal4.0-11.0[facility] Health CenterComment on above:Performed By: #### 9112027, 2026338, 31376561 ####[address] [address]Kozukvqcp Glucose POCon 27-06-6474Juodbxa [Mass/Vol]357 mg/qGImmc59-28BawbepSouthwest General Health CenterComment on above:Result Comment: Notified RN/MDPerformed By: #### [id number] ####[address], [place] [address]Afqtpeb [Mass/Vol]235 mg/mUTtgz47-10KnfgpcSouthwest General Health CenterComment on above:Result Comment: Notified RN/MDPerformed By: #### [id number] ####[address], [place] [address]Qqaahds [Mass/Vol]153 mg/vOYdgz28-02HhkndsSouthwest General Health CenterComment on above:Result Comment: Notified RN/MDPerformed By: #### [id number] ####[facility] [address] [facility], [place] [address]Blvbgbk [Mass/Vol]137 mg/dL Qhrm56-58QixduqSouthwest General Health CenterComment on above:Result Comment: Notified RN/MDPerformed By: #### [id number] ####[facility] [address] [facility], [place] [address]Rnohwjt [Mass/Vol]157 mg/eIQban96-05EjzrzzSouthwest General Health CenterComment on above:Result Comment: Notified RN/MDPerformed By: #### [id number] ####[facility] [address] [place] [address], [place] [address]Gnzrifs [Mass/Vol]169 mg/pCHxyo62-47NohakiSouthwest General Health CenterComment on above:Result Comment: Notified RN/MDPerformed By: #### [id number] ####[address] AveNorun[facility] [facility] [place]k, [place] [address]Hvmwtfq [Mass/Vol]166 mg/mSTtyb87-22FpqtqxSouthwest General Health CenterComment on above:Result Comment: Notified RN/MDPerformed By: #### [id number] ####[address] AveNorun[facility] [facility] [place]k, [place] [address]Wlpdmff [Mass/Vol]170 mg/dL Tluf71-80WhokatSouthwest General Health CenterComment on above:Result Comment: Notified RN/MDPerformed By: #### [id number] ####[address] AveNorun[facility] [facility] centerk, [place] [address]Byurtjv [Mass/Vol]165 mg/aWIcwf12-83GmkymgSouthwest General Health CenterComment on above:Performed By: #### [id number] ####[address] [place] Ave[place], [place] [address]Vldtjaq [Mass/Vol]159 mg/bIOpqe26-35PkdbzgSouthwest General Health CenterComment on above:Result Comment: Notified RN/MDPerformed By: #### [id number] ####[facility] [address] Ave[place], [place] [address]Mvavnsp [Mass/Vol]178 mg/zPWryc54-94 [facility] CenterComment on above:Result Comment: Notified RN/MD Performed By: #### [id number] ####[facility] [address] Ave[place], [place] [address]Sqkvazz [Mass/Vol]143 mg/xLJwmv09-98IpqsrgSouthwest General Health CenterComment on above:Result Comment: Notified RN/MDPerformed By: #### [id number] ####[facility] [address] [place], [place] [address]Qtygqqb [Mass/Vol]192 mg/uVOrev31-80Kgopmz35 [address] StreetComment on above:Result Comment: Notified RN/MDPerformed By: #### [id number] ####[facility] [address] [place] [address]Enajhyo [Mass/Vol]201 mg/pTPozi65-85Tpixsg35 [address] StreetComment on above:Result Comment: Notified RN/MDPerformed By: #### [id number] ####[address] [address]Lrkufwa [Mass/Vol]242 mg/dL [address] StreetComment on above:Result Comment: Notified RN/MDPerformed By: #### [id number] ####[address] [address] Queryon 97-69-3506Xcxdrc QueryNormDunlap Memorial HospitalCoding QueryNoOur Lady of Mercy HospitalConsultation Noteon 64-51-7849Tsstoccwmlyy NoteAvita Health System Galion HospitalComment on above:Result Comment: Electronically Signed By: Rowdy LYMAN, Unruly Laurent\.br\Date and Time Signed: 09/13/23 19:06 ESTConsultation NoteNoOur Lady of Mercy HospitalComment on above:Result Comment: Electronically Signed By: Flakita Morgan MD\.br\Date and Time Signed: 09/13/23 10:18 ESTEcho Transthoracic Lmtd w/ Contraston 82-93-8584Sobo Transthoracic Lmtd w/ Contrast NormalSouthwest General Health CenterHgbA1con 49-31-8167VnG1n (Bld) [Mass fraction] 11.8 %High<=5.9[facility] CenterComment on above:Order Comment: Order placed by EKM rule. [id number]_FTMCPerformed By: #### [id number] ####[address] [place] [address] Insurance Correspondence Officeon 84-95-0171Niyskarft Correspondence Office [id number]#1.00TIFHoraceDunlap Memorial HospitalInterdisciplinary Note - Case Manageron 15-09-0146Neekkepsnguhkqprf Note - Case ManagerAvita Health System Galion HospitalComment on above:Result Comment: Electronically Signed By: Jodee Giang\.br\Date and Time Signed: 09/13/23 14:06 ESTInterdisciplinary Note - PTon 67-40-5231Ocemwgsocpywadmhz Note - PT [facility] HospitalMonitor Recordon 83-17-9047Fvxhglo Record [id number]#1.00TIFFNolloydACMC Healthcare System Glenbe[facility] [id number]#1.00TIFFNormal [facility] Memorial Hospitalitor Record [id number]#1.00TIFFNormCleveland Clinic Mentor Hospitalitor [id number]#1.00TIFFNormal [facility] Record [id number]#1.00TIFFNolloydDunlap Memorial HospitalMonitor [id number]#1.00TIFFNormal [facility] Health CenterNursing Note - Woundon 40-29-5070Zowkzev Note - Wound [id number]#2.00TIFFNoOur Lady of Mercy HospitalProgress Note-Physicianon 38-94-1167Jtyeyqol Note-PhysicianAvita Health System Galion HospitalComment on above:Result Comment: Electronically Signed By: Ida LYMAN, Pippa Mabry\.br\Date and Time Signed: 09/13/23 15:56 ESTProgress Note-PhysicianNormalSouthwest General Health CenterComment on above:Result Comment: Electronically Signed By: Jose LYMAN, Kayla\.br\Date and Time Signed: 09/13/23 11:23 ESTRespiratory Panel by Chi 25-22-2416Hgmtdhzvyz DNA ERIBERTO+non-probe Ql (Nph)Not detectedNormalSouthwest General Health CenterComment on above:Result Comment: Testing was performed using nucleic acid amplification including Influenza A, Influenza A H1, Influenza A H3, Influenza B, RSV A, RSV B, Adenovirus, Human Metapneumovirus, Parainfluenza 1,2,3, and 4, Rhinovirus, Bordetella parapertussis/bronchiseptica, Bordetella holmesii, and Bordetella pertussis.Performed By: #### [id number] ####[address] [facility], [id number]. parapertussis DNA ERIBERTO+probe Ql (Upper resp)Not detectedNormalNot DetectedSouthwest General Health CenterComment on above:Performed By: #### [id number] ####[address] [facility], [id number]. pertussis DNA ERIBERTO+probe Ql (Upper resp)Not detectedNormalNot DetectedSouthwest General Health CenterComment on above: Performed By: #### [id number] ####[facility] [address] AveNorveterans administration medical center, [id number] H1 RNA ERIBERTO+non-probe Ql (Nph)Not detected NormalSouthwest General Health CenterComment on above:Performed By: #### [id number] ####[facility] [address] AveNoruniversity of pitts[facility] medical centerk, MV[address]QEFJB H3 RNA ERIBERTO+non-probe Ql (Nph)Not detectedNormalSouthwest General Health Center Comment on above:Performed By: #### [id number] ####[address] AveNoruniversity of pitts[facility] medical centerk, VY[address]KNTRK RNA ERIBERTO+non-probe Ql (Nph)Not detectedNormalSouthwest General Health CenterComment on above:Performed By: #### [id number] ####Lang [address] [address]PCHUB RNA ERIBERTO+non-probe Ql (Nph)Not detectedNormDunlap Memorial HospitalComment on above:Performed By: #### [id number] ####Rickey [address]Human MetapneumovirusNot detectedNoOur Lady of Mercy HospitalComment on above:Result Comment: This test result should be correlated with clinical presentations and medical history by a healthcare provider to determine its clinical significance.Performed By: #### [id number] ####Rickey [address], XM[address]Oftzigngmanjl virus 1 RNA ERIBERTO+non-probe Ql (Nph)Not detected NormalSouthwest General Health CenterComment on above:Performed By: #### [id number] ####[address] Parainfluenza virus 2 RNA ERIBERTO+non-probe Ql (Nph)Not detectedNoOur Lady of Mercy HospitalComment on above:Performed By: #### [id number] ####[address]Parainfluenza virus 3 RNA ERIBERTO+non-probe Ql (Nph)Not detectedNormDunlap Memorial HospitalComment on above:Performed By: #### [id number] ####Lang [address], CD[address]020Tvsxqcruyymog virus 4 RNA ERIBERTO+non- probe Ql (Nph)Not detectedNoOur Lady of Mercy HospitalComment on above: Performed By: #### [id number] ####[address]Resp Panel Intrl QCPassNoOur Lady of Mercy HospitalComment on above:Performed By: #### [id number] ####[address]key [address]Rhinovirus+Enterovirus RNA ERIBERTO+non-probe Ql (Nph)Not detectedNormDunlap Memorial HospitalComment on above:Performed By: #### [id number] ####[address]RSV RNA ERIBERTO+non-probe Ql (Nph)Not detectedNormDunlap Memorial HospitalComment on above:Performed By: #### [id number] ####[address] [address]TI With Cult Reflexon 24-67-5705Oppdpluzm Ql (U)NegativeNormalNegative [facility] CenterComment on above:Performed By: #### [id number] ####[address] [address] Clarity (U)CLEARNormalClearSouthwest General Health CenterComment on above:Performed By: #### [id number] ####[address] [address]Uaueo (U)YELLOWNormalYellowSouthwest General Health Center Comment on above:Performed By: #### [id number] ####[address] [address]Pydrcqssnv cells.squamous LM.HPF (Urine sed) [#/Area]2-8Vgdgbs7-4EiizkvCleveland Clinic Mercy HospitalComment on above: Performed By: #### [id number] ####[address] [address]Xwebxcl Test strip (U) [Mass/Vol]3+AbnormalNegative [facility] CenterComment on above:Performed By: #### [id number] ####[address] [address] Hemoglobin Ql (U)1+AbnormalNegativeSouthwest General Health CenterComment on above: Performed By: #### [id number] ####[address] [address]Beiqpap (U) [Mass/Vol]NegativeNormalNegativeSouthwest General Health CenterComment on above:Performed By: #### [id number] ####[address] [address] [place].plasma/[place].RBC (Bld) [Mass ratio]6-4Dzomak0-5Hcsmwl [facility] Medical CenterComment on above:Performed By: #### [id number] ####[address] [address]Nvyxxre Ql (U)NegativeNormal NegativeSouthwest General Health CenterComment on above:Performed By: #### [id number] ####[address] [address]cT (U)5.5 [pH]Invalid Interpretation Code5.0-9.0[facility] Health CenterComment on above:Performed By: #### [id number] ####[address] [address]Fetutnp (U) [Mass/Vol]TRACEAbnormal NegativeSouthwest General Health CenterComment on above:Performed By: #### [id number] ####[address] [address] Specific gravity (U) [Rel density]1.015Invalid Interpretation Code1.005-1.030 [facility] CenterComment on above:Performed By: #### [id number] ####[address] [address]Biqh of Urine collection methodClean CatchNormalSouthwest General Health CenterComment on above:Performed By: #### [id number] ####[address] [address]Jxtyqllgccqn Qn (U)0.2 {Itz'U}/dLNormal0.0-1.0 [facility] CenterComment on above:Performed By: #### [id number] ####[address] [address]UNF Auto Ql (U)NegativeNormalNegativeSouthwest General Health CenterComment on above: Performed By: #### [id number] ####[facility] [address]cb[address] AveNorveterans administration medical center, [place] [address]DWK LM.HPF (Urine sed) [#/Area]8-7Ctlqjd1-7NxiutnCleveland Clinic Mercy HospitalComment on above:Performed By: #### [id number] ####Lang [facility] Pbyydndtgc[address] AveNrockville general hospital, [place] [address]WM LE Venous Duplex Bilateralon 94-06-0030KR LE Venous Duplex BilateralNormalSouthwest General Health CenterUS Renalon 87-14-8711FH RenalNormDunlap Memorial HospitalXR Chest Single Viewon 74-76-3718YS Chest Single ViewNoOur Lady of Mercy HospitaleGFRon 15-64-9425lKKA29 mL/min/1.73 m2Low>=59[facility] Comment on above:Order Comment: Order added by Discern Expert.Performed By: #### [id number], [id number] ####[place] [address] AveNorun[facility] [facility] [place]k, [place] [address]oVAU81 mL/min/1.73 m2Low>=59[facility] Comment on above:Order Comment: Order added by Discern Expert.Performed By: #### [id number], 8003693 ####[facility] [address] AveNoruniversity of [facility] [facility] [place]k, [place] [address]eXUI72 mL/min/1.73 m2Low>=59[facility] Comment on above:Order Comment: Order added by Discern Expert.Performed By: #### [id number], 5482317 ####Lang [facility] Endypgwxfm[address] AveNoruniversity of [facility] [facility] centerk, [place] [address]kJLS61 mL/min/1.73 m2Low>=59[facility] Comment on above:Order Comment: Order added by Discern Expert.Performed By: #### 4896442, 73790764 ####[facility] [address] AveNoruniversity of [facility] [facility] [place]k, [place] [address]mVQS44 mL/min/1.73 m2Low>=59[facility] Comment on above:Order Comment: Order added by Discern Expert.Performed By: #### 1179411, 0822079, 04149102 ####[place] [address] [place], [place] [address]nRNR49 mL/min/1.73 m2Low>=59[facility] CenterComment on above:Order Comment: Order added by Discern Expert.Performed By: #### 9343031, 69493840 ####[address] [address]UPPiy 97-60-8763Thily gap [Moles/Vol]12 mmol/L Normal6-16[facility] CenterComment on above:Performed By: #### 08647491, 2920454 ####[address] [address]EAU/Creat Ratio23 No BpgbsEcqu38-98MixdtfSouthwest General Health CenterComment on above:Performed By: #### 97699922, 2621954 ####[address] [address]Mpewdtc [Mass/Vol]8.4 mg/dLLow8.9-11.1FCleveland Clinic Mercy HospitalComment on above:Performed By: #### 14051527, 3334713 ####[address] [place], [place] [address]Bqtwftik [Moles/Vol]102 mmol/KJtdrsd281-615PrfxboSouthwest General Health CenterComment on above:Performed By: #### 99251903, 4425794 ####[address] [address] [place], [place] [address]HW0 [Moles/Vol] 30 mmol/YEbuobm36-68IjoydgSouthwest General Health CenterComment on above:Performed By: #### 17566147, 4777342 ####[facility] Op[address]tk[address]NDen[place], [place] [address]Bhoqnvrnzp [Mass/Vol]2.5 mg/dLHigh0.5-1.3FCleveland Clinic Mercy HospitalComment on above:Performed By: #### 67378053, 6106106 ####[place] [address] [place], [place] [address]Xqcbjoi [Mass/Vol]463 mg/nGIufksewp57-039VdkcxzSouthwest General Health CenterComment on above: Result Comment: Critical Result Verified by Previous ResultCritical Result S_GLU:463 Called to and read back by: MARLEN SHEETS at: 09/12/2023 22:01:54 by:PRADEEP Monteroformed By: #### [id number], 5702805 ####[address] [address]Khvcxnfey [Moles/Vol]5.6 mmol/LHigh3.5-5.3Fisher Mercy Medical CenterComment on above:Performed By: #### 59539154, 8159656 ####[address] [address]Rwjzdz [Moles/Vol]138 mmol/RAvqnqg308-382SmahxxSouthwest General Health CenterComment on above:Performed By: #### 54724012, 4873895 ####[address] [address]Elfw nitrogen [Mass/Vol]57 mg/dLHigh5-21[facility] CenterComment on above:Performed By: #### 20214137, 2018461 ####[address] [address]Wsjjy gap [Moles/Vol]12 mmol/LNormal6-16[facility] CenterComment on above:Performed By: #### 6692500, 87737747, 5467283 ####[address] [address]BJK/Creat Ratio22 No TvalfFqkl65-93SglyxySouthwest General Health CenterComment on above:Performed By: #### 4337231, 00164396, 0599488 ####[address] [address]Sazjmjk [Mass/Vol]8.4 mg/dLLow 8.9-11.1FCleveland Clinic Mercy HospitalComment on above:Performed By: #### 9412333, 79270015, 9688696 ####[facility] Hq[address]mn[address] [facility], [place] [address]Jvgqeqal [Moles/Vol]100 mmol/AFxv169-455YganakSouthwest General Health CenterComment on above:Performed By: #### 5033401, 54004211, 5265702 ####[facility] [address] [place] [address], [place] [address]TM3 [Moles/Vol] 28 mmol/MMtrabm78-88HsmjocSouthwest General Health CenterComment on above:Performed By: #### 4412480, 24591603, 4794506 ####[address], [place] [address]Qaezmwsuzv [Mass/Vol]2.6 mg/dLHigh0.5-1.3FCleveland Clinic Mercy HospitalComment on above:Performed By: #### 1319886, 26157959, 4799680 ####[facility] [address] [place] [address], [place] [address]Reqlanm [Mass/Vol]575 mg/rQRaorwchn54-992JeilxnSouthwest General Health CenterComment on above:Result Comment: Critical Result S_GLU:575 Called to and read back by: MARLEN SHEETS at: 09/12/2023 18:59:19 by:PRADEEP Stevensal Result Verified by Previous ResultPerformed By: #### 5535922, 88174163, 7496169 ####[address] [place] [address] Potassium [Moles/Vol]6.5 mmol/LAbnormal3.5-5.3FCleveland Clinic Mercy HospitalComment on above:Result Comment: Critical Result S_K:6.5 Called to and read back by: MARLEN SHEETS at: 09/12/2023 18:59:19 by:PRADEEP AIKENritical Result Verified by Previous ResultPerformed By: #### 4277364, 07686752, 5518620 ####[facility] [address] [place] [address] Sodium [Moles/Vol]133 mmol/WLvo141-189AxulkkSouthwest General Health CenterComment on above:Performed By: #### 7643835, 77193936, 3132423 ####[facility] [address] [place], [place] [address]Vtac nitrogen [Mass/Vol]57 mg/dLHigh5-21[facility] CenterComment on above:Performed By: #### 4739790, 31108631, 0759892 ####[address] [address]CZAet 20-70-1616Oewxksjvukt peptide B (Bld) [Mass/Vol]245 pg/mLHigh5-80[facility] CenterComment on above:Performed By: #### 63388250, 279873494, 2094649, 2765780727, 87471986, 6066836, 0425670, 89918205, 7338244, 6154994 ####[address] [address]CXJMqp 30-36-69[address]Wqho HB Qnt0.17 mmol/LNormal 0.02-0.27[facility] CenterComment on above:Performed By: #### 13467690, 838238511, 0523259, 5117115994, 12088381, 7556408, 3759774, 22891900, 6627072, 7115714 ####[facility] [address] [place], [place] [address]Poqbb Gas Art, with Lytes, Gluc, [place] 4a/A Ratio Art26.80 %Normal>=0.80[facility] CenterComment on above:Performed By: #### 174357400 ####[place] [place], [place] [address]IeST3 Pks243.8 mmHgHigh5.0-15.0[facility] Comment on above:Performed By: #### 797676409 ####[place] [place], [place] [address]Figrwq TestPositiveNormalSouthwest General Health CenterComment on above:Performed By: #### 479798718 ####[place] [address] [facility], [place] [address]Djtl Excess Arterial 2.9 mmol/LNormal>=2.8[facility] CenterComment on above:Performed By: #### 679471996 ####[address] [address]UvYUT19/8Invalid Interpretation CodeSouthwest General Health CenterComment on above:Performed By: #### [id number] ####[address] [address]mLk1+ Art4.64 mg/dLNormal 4.40-5.30[facility] CenterComment on above:Performed By: #### 789922409 ####[address] [address]lHed Kzn642 mg/zSHatzujdt17-77ZqsuahSouthwest General Health CenterComment on above: Result Comment: Results Called To DR GARCIA By DIANA MCKEON And Read Back For Confirmation On 09/12/2023 18:44:48 EST.Performed By: #### [id number] ####[address] [address]wK+ Art5.9 mmol/LHigh3.5-5.3FC[facility] Clinic Mercy HospitalComment on above:Performed By: #### 436717392 ####[address] [address]xCqv Art.6 mmol/LNormal.5-2.2[facility] Comment on above:Performed By: #### 033340655 ####[address] [address]uUq+ Qan001.0 mmol/FPnppoi220.0-145.0 [facility] CenterComment on above:Performed By: #### 004786670 ####[address] [address]Ukfkq byWMBInvalid Interpretation [facility] CampusComment on above: Performed By: #### [id number] ####Rickey [address] [address]JFEOv Art1.4 %Low1.5-4.9[facility] Comment on above:Result Comment: Reference rangeNonsmoker <1.5%Smoker <5.0%Heavy Smoker <9.0%Performed By: #### 410124005 ####Lang [address] [address]JGK6 BG65.0Invalid Interpretation CodeSouthwest General Health CenterComment on above:Performed By: #### [id number] ####[address] [address] FMetHb Art0.6 %Normal0.0-1.9[facility] CenterComment on above: Performed By: #### 850082813 ####Lang [address] [address]WS1Ks Art95.9 %Abmjjn16.0-100.0[facility] CenterComment on above:Performed By: #### 650148232 ####[address] [address]HPF8 (Bld) [Moles/Vol]27.0 mmol/LHigh22.0-26.0[facility] CenterComment on above:Performed By: #### 820269820 ####[address] [address]Mmvcgqcctz (Bld) [Mass/Vol]14.9 g/sSEgwjrf29.0-17.0[facility] CenterComment on above:Performed By: #### 442505376 ####[address] [address]Oemhtu saturation in Blood97.9 %Xddlpb99.0-100.0[facility] CenterComment on above:Performed By: #### 239366237 ####[address] [address]P CO2 Rcujccnh10.5 thNrPsnv51.0-45.0[facility] CenterComment on above:Performed By: #### 881249033 ####[address] [address]H O2 Wibonnpz487.0 rvBmNmmj14.0-100.0[facility] CenterComment on above:Performed By: #### 592510200 ####[address] [address]xG Arterial7.101Vlq7.350-7.450[facility] CenterComment on above: Performed By: #### [id number] ####[address] [address]Fekvjv SiteL RadialNormalSouthwest General Health CenterComment on above:Performed By: #### 337268289 ####[address] [address]Mbmiqe TypeArterial DrawNormal [facility] CenterComment on above:Performed By: #### 749110639 ####[address] [address]p/A Ratio Art29.90 %Normal>=0.80[facility] CenterComment on above: Performed By: #### 927888733 ####[address] [address]FeIQ0 Ibb318.2 mmHgHigh5.0-15.0[facility] CenterComment on above:Performed By: #### 691365348 ####[address] [address]Gvbhfa TestPositiveNormal [facility] CenterComment on above:Performed By: #### 225445381 ####[facility] [address] [place], [place] [address]Iwea Excess Arterial-0.1 mmol/LLow>=2.8[facility] CenterComment on above: Performed By: #### 199927779 ####[address] [address]XmEZA36/8Invalid Interpretation CodeFishUniversity of Maryland Rehabilitation & Orthopaedic InstituteComment on above:Performed By: #### 013029373 ####[address] [address]fQt5+ Art4.76 mg/dL Normal4.40-5.30[facility] CenterComment on above:Performed By: #### 580632951 ####[address] [address]uDm- Kuz821.0 mmol/IVkw186.0-111.0[facility] CenterComment on above:Performed By: #### 090337005 ####[address] [address]gHwo Ipa819 mg/dMJdlutlpd76-38ErwpcwSouthwest General Health CenterComment on above:Result Comment: Results Called To IRVING PECL By WILLEM WILKES _ And Read Back For Confirmation On _.09/12/2023 16:45:25 ESTPerformed By: #### [id number] ####[facility] [address] [place] [address]xW+ Art6.3 mmol/LAbnormal3.5-5.3[facility] Comment on above:Result Comment: Results Called To IRVING PECL By WILLEM WILKES _ And Read Back For Confirmation On _.09/12/2023 16:45:25 ESTPerformed By: #### [id number] ####[address] [address]fHnn Art.7 mmol/LNormal.5-2.2FC[facility] Mercy HospitalComment on above: Performed By: #### 853641850 ####[address] [address]iOz+ Dsj598.0 mmol/MRccofk992.0-145.0[facility] CenterComment on above:Performed By: #### [id number] ####[address] [address]Awwvl Ange WILKES Invalid Interpretation CodeSouthwest General Health CenterComment on above:Performed By: #### [id number] ####[address] [address]TLPYv Art2.1 %Normal1.5-4.9[facility] Comment on above:Result Comment: Reference rangeNonsmoker <1.5%Smoker <5.0%Heavy Smoker <9.0%Performed By: #### 857829634 ####[address] [address]TUN8 IA94Qoryacw Interpretation Code [facility] CenterComment on above:Performed By: #### [id number] ####[address] [address] FMetHb Art0.1 %Normal0.0-1.9[facility] CenterComment on above: Performed By: #### 031191830 ####[address] [address]NN1Oy Art93.3 %Bnoecn21.0-100.0[facility] CenterComment on above:Performed By: #### 164774570 ####[address] [address]OHK1 (Bld) [Moles/Vol]24.3 mmol/MWxrflv76.0-26.0[facility] CenterComment on above:Performed By: #### [id number] ####[address] [address]Olfgqaueun (Bld) [Mass/Vol]14.8 g/dEIyabpl18.0-17.0[facility] CenterComment on above:Performed By: #### [id number] ####[place] [place], [place] [address]Smxzlm saturation in Blood95.4 %Tlsnwo30.0-100.0[facility] CenterComment on above:Performed By: #### [id number] ####[address] [address]E CO2 Fhktcmyk25.6 hvUxXypk73.0-45.0[facility] CenterComment on above:Performed By: #### [id number] ####[address] [address]V O2 Nfrdqbip79.9 mmHg Hpwibx16.0-100.0[facility] CenterComment on above:Performed By: #### [id number] ####[address] [address]fY Arterial7.399Druuofyz2.350-7.450[facility] CenterComment on above:Result Comment: Results Called To IRVING ALEX By WILLEM WILKES _ And Read Back For Confirmation On _.09/12/2023 16:45:25 ESTPerformed By: #### [id number] ####[address] [address] Sample SiteL RadialNormalSouthwest General Health CenterComment on above:Performed By: #### [id number] ####[address] [address]Moajtz TypeArterial DrawNormalSouthwest General Health Center Comment on above:Performed By: #### [id number] ####[address] [address]d/A Ratio Art17.40 %Normal>=0.80 [facility] CenterComment on above:Performed By: #### [id number] ####[place] [address] [place], [place] [address]FsED1 Ouz266.5 mmHgHigh5.0-15.0[facility] CenterComment on above:Performed By: #### 636166859 ####[address] [address]Rdazzr TestPositiveNormalSouthwest General Health CenterComment on above:Performed By: #### [id number] ####[address] [address]Helq Excess Arterial-0.1 mmol/LLow >=2.8[facility] CenterComment on above:Performed By: #### [id number] ####[address] [address]dSw6+ Art4.75 mg/dLNormal4.40-5.30[facility] CenterComment on above: Performed By: #### [id number] ####[address] [address]oFp- Art98.0 mmol/TOoe027.0-111.0[facility] CenterComment on above:Performed By: #### [id number] ####[address] [address]iYvs Lng296 mg/dL Rinokakm33-20GatgedSouthwest General Health CenterComment on above:Result Comment: Results Called To nicole myers By korina hebert And Read Back For Confirmation On 09/12/2023 14:09:29 EST.Performed By: #### [id number] ####[address] [address]fC+ Art6.0 mmol/LHigh3.5-5.3 [facility] CenterComment on above:Performed By: #### 017980257 ####[address] [address]rHyk Art.9 mmol/LNormal.5-2.2[facility] Medical CenterComment on above:Performed By: #### [id number] ####[address] [address]fIe+ Wwz889.0 mmol/EGkd463.0-145.0[facility] CenterComment on above:Performed By: #### 445275618 ####[address] [address]KzfundPmg Rebreather Mask NormalSouthwest General Health CenterComment on above:Performed By: #### 615510083 ####[address] [address]Zskcp bystacia schneiteInvalid Interpretation CodeSouthwest General Health CenterComment on above:Performed By: #### [id number] ####Lang [address] [address]ZZMTs Art2.2 %Normal1.5-4.9[facility] CenterComment on above:Result Comment: Reference rangeNonsmoker <1.5%Smoker <5.0%Heavy Smoker <9.0%Performed By: #### 840155238 ####[address] [address]KAX8 UH38Hfrdaol Interpretation [facility] CampusComment on above:Performed By: #### [id number] ####[address] [address]UU9Lf Art94.1 %Lavtdv20.0-100.0[facility] Comment on above:Performed By: #### [id number] ####[address] [address]VNT6 (Bld) [Moles/Vol]24.3 mmol/L Zjzfwr56.0-26.0[facility] CenterComment on above:Performed By: #### [id number] ####Lang [address] [address]Ulmunmoppd (Bld) [Mass/Vol]14.7 g/eELxpyey85.0-17.0[facility] CenterComment on above:Performed By: #### [id number] ####[address] [address]Jswrxy saturation in Blood96.2 %Qpphcy16.0-100.0[facility] CenterComment on above:Performed By: #### [id number] ####[address] [address]V CO2 Uesmrism73.1 gpLcPopk51.0-45.0[facility] CenterComment on above:Performed By: #### [id number] ####[address] [address]A O2 Pvzdygit10.6 vuNwGdhbyh06.0-100.0[facility] CenterComment on above:Performed By: #### 059426996 ####[address] [address]zH Arterial7.254Low 7.350-7.450[facility] CenterComment on above:Performed By: #### 367536698 ####[address] [address]Lvsuqg SiteL RadialNormalSouthwest General Health CenterComment on above: Performed By: #### 737453325 ####[address] [address]Vxnsdn TypeArterial DrawNormalSouthwest General Health CenterComment on above:Performed By: #### [id number] ####[address] [address]ZAA w/ Auto Diffon 09-12-2023 Basophil Absolute0.1 E9/LNormal0.0-0.2FC[facility] Mercy HospitalComment on above:Performed By: #### 25268533, 339001759, 4483041, 0108877256, 69808930, 3640484, 1935527, 47233625, 5672575, 8695029 ####[address] [place] [place], [place] [address]Pyloeuuez/100 WBC (Bld)1.0 %Normal 0.0-2.0[facility] CenterComment on above:Performed By: #### 71889613, 521553654, 7518742, 1532568958, 22368050, 3022860, 9793158, 32123407, 8324715, 1952592 ####Rickey [address] [address]Hdh Absolute0.2 E9/LNormal0.0-0.5[facility] Medical CenterComment on above:Performed By: #### 69834840, 397873525, 3801242, 0688396601, 06361444, 6751548, 6985324, 19403561, 8973272, 6590979 ####[place] [address]Iuwzhjeowon/100 WBC (Bld)2.9 %Normal 0.0-8.0[facility] CenterComment on above:Performed By: #### 48786168, 693163574, 7966590, 8930605665, 53129975, 5860133, 3843626, 92765136, 7557092, 4072316 ####Lang [address] [address]Footecjwfpe distribution width (RBC) [Ratio]18.2 %High10.9-14.2FC[facility] HospitalComment on above:Performed By: #### 17706115, 416926572, 8402857, 3363293234, 06976739, 4805877, 4664682, 24004620, 0127545, 6075760 ####Lang [address] [address]Mjkvyaprkf (Bld) [Volume fraction]46.0 %Wckpae43.7-49.0[facility] CenterComment on above:Performed By: #### 66837212, 381816139, 9066561, 2612038780, 76028190, 1275950, 9088719, 35069369, 6585603, 8077905 ####[address] [place] [address] [place], [place] [address]Tcjnnvoepn (Bld) [Mass/Vol]14.2 g/dL Zgperv96.5-17.5FC[facility] Mer[facility] HospitalComment on above:Performed By: #### 81567732, 516918738, 6740777, 5298872234, 91592381, 6811859, 0614365, 07559698, 4255021, 9341338 ####[place] [place], [place] [address]Hjexg Absolute1.0 E9/LNormal1.0-4.0[facility] CenterComment on above:Performed By: #### 39265437, 631099839, 2744937, 5545417705, 36722430, 5618925, 8751569, 21249963, 9416744, 8143971 ####Rickey [address] [address]Wlwavgcdzfg/100 WBC (Bld)14.0 %Eeggaw38.0-50.0[facility] CenterComment on above: Performed By: #### 75401715, 305694373, 3809752, 7706919164, 33414005, 5069504, 4651744, 17545307, 3275894, 1223561 ####Rickey [address] [address]SHG (RBC) [Entitic mass]27.7 pgNormal 27.0-34.0[facility] CenterComment on above:Performed By: #### 24646679, 997906874, 2257088, 0881838979, 49537721, 9535482, 0229067, 17974204, 5534289, 5009351 ####Rickey [address] [address]AFAV (RBC) [Mass/Vol]30.8 g/dLLow31.4-36.0[facility] CenterComment on above:Performed By: #### 20371532, 576677730, 7607274, 1019636521, 34480413, 2152531, 7191798, 89663104, 6034766, 7784150 ####[address] [address]HBE (RBC) [Entitic vol]90.0 yOJsszjv02.0-100.0[facility] CenterComment on above: Performed By: #### 14074227, 421418749, 1584894, 7263476957, 04633934, 9712612, 6935907, 77363218, 3630522, 3284937 ####[address] [address]Vcwm Absolute0.8 E9/LNormal0.2-1.0 [facility] CenterComment on above:Performed By: #### 06930637, 991380359, 7392165, 1109918201, 91096472, 0020714, 5700073, 24258353, 0522445, 9998959 ####[address] [address]Syarimqbo/100 WBC (Bld)11.3 %Normal4.0-14.0[facility] Comment on above:Performed By: #### 01249050, 920229186, 1125648, 1027716099, 78135739, 6866970, 4705108, 94751573, 4219521, 6847205 ####[address] [address]Utrqgy Absolute4.8 E9/LNormal 2.0-7.5FC[facility] Mercy HospitalComment on above:Performed By: #### 53862959, 174397861, 8784696, 8408768479, 18244876, 3260095, 6009340, 86744228, 1545337, 8078677 ####[address] [address]Ikjlhx Auto70.8 %Sgbyoo49.0-75.0[facility] CenterComment on above:Performed By: #### 23602460, 488091852, 5285335, 6499691524, 01217440, 5317609, 8284340, 36419677, 9940878, 0817367 ####[address] [address]Ihtjuroo402.0 E9/AGjtaoj558.0-500.0 [facility] CenterComment on above:Performed By: #### 90818494, 659099703, 2829539, 8243622013, 46362047, 8418443, 8878357, 50329820, 5544736, 1814470 ####[address] [address]Vmviwbob mean volume (Bld) [Entitic vol]7.3 fLNormal6.4-10.8[facility] CenterComment on above:Performed By: #### 06444637, 012451937, 7267556, 4440006310, 47157625, 1011868, 2472484, 45472221, 0641680, 3404364 ####[address] [address]TDX3.1 E12/L Normal4.3-5.9[facility] CenterComment on above:Performed By: #### 60093345, 928007978, 4606078, 6831523226, 07069534, 0298637, 5221854, 82167039, 8196110, 7808202 ####[address] [address]ZBA7.8 E9/LNormal4.0-11.0[facility] CenterComment on above:Performed By: #### 09982302, 470396449, 3663945, 8664360069, 44148979, 0129383, 9432568, 61952932, 7003316, 7758189 ####[address] [place], [place] [address]XNHqt 55-49-2341Lzwmuxo [Mass/Vol]3.3 g/dLNormal3.3-5.0[facility] CenterComment on above:Performed By: #### 53989372, 209813441, 9408310, 1217062065, 79752484, 8686934, 5911069, 23277295, 9316061, 6623037 ####Lang [address] [address]Tzgkohg/Globulin [Mass ratio]1.1 {ratio}Normal1.1-2.2FC[facility] Mer[facility] HospitalComment on above:Performed By: #### 15626530, 528231940, 7462456, 2220350602, 55220634, 2670921, 5877249, 51510382, 2036922, 3936823 ####Lang [address] [address]Mbw Phos94 Int._Unit/YGmgufs10-37OhnxagSouthwest General Health CenterComment on above: Performed By: #### 61310983, 796137112, 5652251, 6356203988, 57267740, 1999695, 0990877, 29421820, 2246314, 8532904 ####Lang [address] [address]YNL15 Int._Unit/LNormal6-46[facility] CenterComment on above:Performed By: #### 36971720, 298672833, 5583077, 6947870136, 73625946, 5143393, 1869682, 32403935, 1738319, 9148959 ####[address] [address]Sntjs gap [Moles/Vol]10 mmol/LNormal6-16[facility] CenterComment on above: Performed By: #### 83786679, 925221746, 5671290, 5873174733, 26666725, 1821958, 2897258, 06262692, 6066876, 8030987 ####Rickey [facility] [address] [place], [place] [address]JCW59 Int._Unit/LNormal5-43[facility] CenterComment on above:Performed By: #### 06889640, 292869804, 7877025, 5538022459, 81843351, 5108576, 6144898, 57058198, 4150785, 5834857 ####Lang [facility] [address] [place], [place] [address]Vmhf Total0.6 mg/dLNormal0.0-1.1FC[facility] Mercy HospitalComment on above:Performed By: #### 56476028, 544281980, 7160058, 4143637475, 84373143, 9278275, 4119399, 36868812, 2035292, 8595342 ####[facility] [address] [place], [place] [address]LQY/Creat Ratio21 No VgqlqQmnj43-16WbugmuSouthwest General Health CenterComment on above:Performed By: #### [id number], [id number], [id number], [id number], [id number], [id number], [id number], [id number], [id number], [id number] ####[address] [place], [place] [address]Zdmjjoh [Mass/Vol]8.3 mg/dLLow8.9-11.1Fisher Mercy Medical CenterComment on above: Performed By: #### [id number], [id number], [id number], [id number], 60578591, 2564105, 9857942, 84604631, 4508741, 5874069 ####[facility] [address] [place], [place] [address]Sohkqeeo [Moles/Vol]97 mmol/LLow 101-111South[facility] General Health CenterComment on above:Performed By: #### 31573475, 740600914, 2404831, 0556173801, 04017585, 8335714, 4701361, 90068767, 4958515, 9601290 ####Lang [facility] [address] [place], [place] [address]KH8 [Moles/Vol]29 mmol/VTjrdjf74-99DsvkywSouthwest General Health CenterComment on above:Performed By: #### 53038740, 852106994, 0631536, 9998728706, 93193528, 4318893, 5091445, 21440814, 7542740, 9271954 ####Lang [address] [place], [place] [address]Ckrslpjkoi [Mass/Vol]2.8 mg/dLHigh 0.5-1.3FCleveland Clinic Mercy HospitalComment on above:Performed By: #### 05830097, 207213519, 8653393, 1715815508, 65688489, 3433563, 8714130, 65399963, 9080385, 7841372 ####Lang [address] [place], [place] [address]Lcvtbwnb (S) [Mass/Vol]3.1 g/dLNormal1.4-4.0[facility] Comment on above:Performed By: #### 09487665, 215542893, 5542923, 3332318404, 31542635, 6951737, 2453436, 68208823, 6521056, 3519817 ####Lang [address] [place], [place] [address]Zufruas [Mass/Vol]560 mg/dL Gpixqjoi34-878IaaidrSouthwest General Health CenterComment on above:Result Comment: Critical Result Verified by Repeat AnalysisCritical Result S_GLU:560 Called to and read back by: ULICES BACA at: 09/12/2023 14:56:08 by:[id number] By: #### [id number], 441161190, 2860419, 8355145566, 40638832, 1319708, 8424354, 95727272, 1838992, 3926480 ####[address] [place], [place] [address]Ibdynyrxx [Moles/Vol]6.3 mmol/LAbnormal3.5-5.3 [facility] CenterComment on above:Result Comment: Critical Result Verified by Repeat AnalysisCritical Result S_K:6.3 Called to and read back by: ULICES BACA at: 09/12/2023 14:56:08 by:[id number] By: #### 22684940, 915209790, 1634623, 5384573374, 27205017, 1882145, 7623156, 86694639, 0802840, 8414495 ####[facility] [address] [place], [place] [address]Olzjubc [Mass/Vol]6.4 g/dLNormal6.0-7.8[facility] Health CenterComment on above:Performed By: #### 05014702, 336915238, 1801351, 1791026371, 64145552, 1966353, 3311332, 30941520, 8563344, 4172066 ####[address] [place], [place] [address]Fpjrpn [Moles/Vol]130 mmol/LLow 135-145South[facility] Health CenterComment on above:Performed By: #### 64920332, 713515979, 9944706, 2234987466, 29205218, 2203789, 4621477, 86246531, 6800740, 7577632 ####[facility] [address] [place], [place] [address]Wkpk nitrogen [Mass/Vol]59 mg/dLHigh5-21South[facility] Health CenterComment on above:Performed By: #### 56632866, 342076249, 0905917, 7571508995, 31878821, 3634364, 3977575, 74979433, 1249924, 9315461 ####[facility] [address] [place], [place] [address]Bqjjyijem Glucose POCon 09-12-2023 Glucose [Mass/Vol]298 mg/cVKbqz81-99GbvvmcSouthwest General Health CenterComment on above: Performed By: #### [id number] ####[facility] [address] AveNrockville general [place], [place] [address]Jrgqdyz [Mass/Vol]336 mg/yTMhff64-57Ydzqiw[address] [place], [place] [address]Comment on above:Result Comment: Notified RN/MDPerformed By: #### [id number] ####[facility] Afqiuxxmnm[address] AveNoruniversity of [facility] medical [place]k, [place] [address]Pyspslz [Mass/Vol]431 mg/fKTssk90-35Lbyuwi[address] [place], [place] [address]Comment on above:Result Comment: Notified RN/MDPerformed By: #### [id number] ####[facility] Fexkavioyo[address] AveNoruniversity of p[facility] medical centerk, [place] [address]Lfqpjix [Mass/Vol]468 mg/pSCccamlgb95-95Ednilr05 Hardin StreetComment on above: Performed By: #### [id number] ####[address] AveNrockville general hospital, [place] [address]Yhhtvun Cap>206Vaiwxmsz94-43Yweqdv[address] [place], [place] [address]Comment on above:Result Comment: Repeat TestPerformed By: #### [id number] ####[facility] [address]dw[address] [place] [address] Glucose Cap>550Aknzhshd51-76Wkmumv[address] [place], [place] [address]Comment on above:Result Comment: Cleaned MeterPerformed By: #### [id number] ####[address], [place] [address]Zphynhu for Treatmenton 78-37-6337Zhctvre for Treatment [id number]#1.00TIFFAvita Health System Galion HospitalConsultation Noteon 64-65-3338Weuqybmbpjyb NoteNoOur Lady of Mercy HospitalComment on above:Result Comment: Electronically Signed By: Nehal Robles PA-C, Shaquille Manriquezbr\Date and Time Signed: 09/12/23 17:54 ESTED Clinical Summaryon 73-12-9998BQ Clinical SummaryNormPremier Health Atrium [facility] Note-Physician on 80-39-3039TP Note-PhysicianNoOur Lady of Mercy HospitalComment on above: Result Comment: Electronically Signed By: Nicole Myers DO\.samir\Date and Time Signed: 09/12/23 16:07ESTED Patient Education Noteon 84-65-6136UT Patient Education NoteNormPremier Health Atrium Medical Center Patient Summaryon 11-28-9135OQ Patient SummaryNormDunlap Memorial HospitalGlucoseon 57-59-1674Rbgprsp [Mass/Vol]533 mg/qCLijbaptd06-782ImktfySouthwest General Health CenterComment on above: Result Comment: Critical Result Verified by Previous ResultCritical Result S_GLU:533 Called to and read back by: YI FERRER at: 09/12/2023 19:24:47 by:PRADEEP Monteroformed By: #### [id number] ####[facility] [address] [place], [place] [address]Pkyfkifbu A&B Agon 09-12-2023 Influenzae A AgNegativeNormalNegativeSouthwest General Health CenterComment on above:Performed By: #### [id number], [id number] ####[facility] [address] [place], [place] [address]Htyahryamc B AgNegativeNormalNegative [facility] CenterComment on above:Result Comment: Test sensitivity and specificity vary for age group, specimen type, antigen types, and prevalence of disease. Test results must be evaluated in conjunction with other clinical data available to the physician. Individuals who received nasally administered Influenza A vaccine may havepositive test results up to 3 days after vaccination.Performed By: #### [id number], [id number] ####[facility] [address] AveNDenver, [place] [address]Gbpypw Acidon 36-27-0091Qcuijc Acid Lvl1.2 mmol/LNormal0.5-2.2Fisher [facility]cy Medical CenterComment on above: Performed By: #### 5724846 ####[facility] [address] [place], [place] [address]Ekiznk Acid Lvl1.2 mmol/LNormal0.5-2.2Fisher Mercy Medical CenterComment on above:Performed By: #### 95069544, 644854630, 9802411, 1633925629, 19467500, 1129745, 3410330, 67401895, 1873185, 8913945 ####[facility] [address] [place], [place] [address]Otvsoq Levelon 77-21-4816Lhqgqm Lvl14 unit/YXzxrfb90-61KmmhwuSouthwest General Health CenterComment on above:Performed By: #### 97661071, 794684738, 7602473, 5477875273, 28708282, 2007167, 0944589, 48022550, 4092441, 0741201 ####[facility] [address] [place], [place] [address]Xdqfycj Recordon 57-11-8991Jrebfpp [id number]#1.00TIFFNormalGrand Lake Joint Township District Memorial Hospitalitor [id number]#1.00TIFF NormalGrand Lake Joint Township District Memorial Hospitalitor Record [id number]#1.00TIFFNormalGrand Lake Joint Township District Memorial Hospitalitor [id number]#1.00TIFFNormal [facility] Memorial Hospitalitor Record [id number]#1.00TIFFNormDunlap Memorial HospitalPT & PTTon 91-97-5529hGUL Coag (PPP) [Time]32.5 second(s)Jrpmll42.1-36.5 [facility] CenterComment on above:Result Comment: Parameter 15 days - [...] using thesame coagulation reagent and instrumentation as [facility]. Currently there are no coagulation studies available worldwide for children to 14 days, and no normal ranges. Heparin therapeutic range (represented by Anti-Factor Xa activity of 0.2 - 0.4 U/mL) corresponds to PTT of 56.6 - 109.0 sec.Performed By: #### 75266788, 755077795, 9309716, 0124759769, 00299404, 1498774, 8901365, 59055848, 9477511, 2528857 ####[facility] [address] [place], [place] [address]RMX Coag (PPP) [Relative time]1.1 {INR}Invalid Interpretation CodeFisher Mercy Medical CenterComment on above:Result Comment: INR results are specifically intended to assess patients stabilized on long-term Anticoagulation therapy suggested INR?s ?Less Intensive Anticoagulation? 2.0 ? 3.0Conventional Range 3.0 ? 4.5Performed By: #### 15509614, 713632326, 8712628, 0391464828, 01401601, 4170099, 1903538, 29584706, 8113813, 9386476 ####[facility] [address] [place], [place] [address]WI Coag (PPP) [Time]12.0 second(s) Normal9.4-12.5Fisher Mercy Medical CenterComment on above:Result Comment: 15 days [...] the same coagulation reagent and instrumentation as [facility]. Currently there are no coagulation studies available worldwide for children to 14 days, and no normal ranges.Performed By: #### 75655618, 267451454, 3721148, 2992338587, 22746022, 0329742, 7300332, 72320878, 1738833, 0123590 ####[facility] [address] [place], [place] [address]Hfm-Jhwerih Noteon 13-83-4607Xzx-Arrival NoteNormDunlap Memorial HospitalProcalcitoninon 76-90-7897Fpslutniqjnov.10 ng/mLNormal .00-.50[facility] Health CenterComment on above:Result Comment: <0.5 ng/mL Low risk [...] within 6 to 24 hours.Performed By: #### 64337818, 566024630, 8884910, 1648345370, 63424096, 5025133, 6297873, 38173672, 7293022, 7732204 ####[facility] [address] [place], [place] [address]Mxwjr COVID Antigen ([facility])on 58-17-4861Yqodq COV Int NEG CtlPassAvita Health System Galion HospitalComment on above:Performed By: #### [id number], 33665663 ####[facility] [address] [place], [place] [address]Idmyr COV Int POS CtlPassNormDunlap Memorial HospitalComment on above:Performed By: #### [id number], 84041552 ####[facility] [address] [place], [place] [address]EAVS-EvL+SARS-CoV-2 (COVID-19) Ag IA.rapid Ql (Resp)Not detectedNormalNot DetectedFishUniversity of Maryland Rehabilitation & Orthopaedic InstituteComment on above: Result Comment: The Belly? System for Rapid Detection of SARS-CoV-2 is [...] is terminated or revoked sooner.Performed By: #### [id number], 23963708 ####[address] [address]Ppkqyldvtnzvbtl 74-95-7261Elixbvojeigx [Mass/Vol]131 mg/dL Normal<=149South[facility] Health CenterComment on above:Performed By: #### 6016536, 39498778, 3227922 ####[address] [address]Vrfawdufmh 01-72-7916Mljtrhvm23.30 pg/mLAbnormal 15.90-38.40[facility] Health CenterComment on above:Result Comment: Critical Result Verified by Repeat AnalysisCritical Result I_TnIHS:59.3 Called to and read back by: ULICES BACA at: 09/12/2023 16:43:58 by:[id number] 95% CI (Confidence Interval) PPV (Positive Predictive Value) for myocardial infarction in females is 38 pg/mL, in males 51 pg/mL. The results should be used in conjunction with clinical conditions of myocardial infarction.(Access High Sensitivity Troponin I Instructions For Use, [facility], March 2018) Performed By: #### 76542529, 987856771, 8492462, 5623672457, 52449571, 2848961, 6556712, 51759559, 9676155, 1619575 ####[address] [address]D Drug Screenon 09-12-2023U Amph Scr NegativeInvalid Interpretation CodeSouthwest General Health CenterComment on above: Performed By: #### [id number] ####[address] [address]R Jo-Ann ScrNegativeInvalid Interpretation [facility] CampusComment on above:Performed By: #### [id number] ####[address] [address]B Benzodia Scr NegativeInvalid Interpretation CodeSouthwest General Health CenterComment on above: Performed By: #### [id number] ####[address] [address]J Cannab ScrNegativeInvalid Interpretation Code [facility] CenterComment on above:Performed By: #### 8048822 ####[facility] [address] [place], [place] [address]E Cocaine ScrNegativeInvalid Interpretation [facility] CampusComment on above:Performed By: #### 3335614 ####[address] [address]L Opiate ScrNegativeInvalid Interpretation [facility] CampusComment on above:Performed By: #### 1970298 ####[address] [address]Z PCP ScrNegativeInvalid Interpretation [facility] Comment on above:Performed By: #### [id number] ####[address] [address]YZ With Cult Reflexon 09-12-2023 Bilirubin Ql (U)NegativeNormalNegativeSouthwest General Health CenterComment on above:Performed By: #### [id number] ####[address] [address]Lbzuotu (U)CLEARNormalClearSouthwest General Health CenterComment on above:Performed By: #### [id number] ####[address] [address]Xjmfe (U)YELLOWNormalYellow [facility] CenterComment on above:Performed By: #### 24902594 ####[address] [address] Crystals LM Ql (Urine sed)PresentNormDunlap Memorial HospitalComment on above:Performed By: #### [id number] ####[address] [address]Igxscwosco cells.squamous LM.HPF (Urine sed) [#/Area]1-7Ywipfy4-1ItwwdcCleveland Clinic Mercy HospitalComment on above:Performed By: #### [id number] ####[address] [address]Ntrwbmk Test strip (U) [Mass/Vol]3+AbnormalNegativeSouthwest General Health CenterComment on above:Performed By: #### [id number] ####Lang [address] [address]Jttrylruiw Ql (U)1+Abnormal NegativeSouthwest General Health CenterComment on above:Performed By: #### 33280929 ####Rickey [address] [address] Ketones (U) [Mass/Vol]NegativeNormalNegativeSouthwest General Health CenterComment on above:Performed By: #### 85207123 ####[address] [address]Qnildof.plasma/[place].RBC (Bld) [Mass ratio]4-0Ossany3-2Zhacyg Mercy Medical CenterComment on above:Performed By: #### [id number] ####[address] [address]Jkzvird Ql (U)NegativeNormalNegOhioHealth Marion General HospitalComment on above:Performed By: #### [id number] ####[address] [address]eP (U)5.5 [pH]Invalid Interpretation Code5.0-9.0[facility] Health CenterComment on above:Performed By: #### [id number] ####Lang [address] [address]Ycishlj (U) [Mass/Vol]1+AbnormalNegativeSouthwest General Health CenterComment on above:Performed By: #### 69009126 ####[address] [address]Xalyctes gravity (U) [Rel density]1.015Invalid Interpretation Code1.005-1.030[facility] Comment on above:Performed By: #### [id number] ####Lang [address] [address]Gwmq of Urine collection methodClean CatchNormalSouthwest General Health CenterComment on above:Performed By: #### [id number] ####Rickey [address] [address]Rvdvbyfnghba Qn (U)0.2 {Itz'U}/dLNormal0.0-1.0[facility] CenterComment on above:Performed By: #### 66968105 ####Rickey [address] [address]SFH Auto Ql (U)NegativeNormal NegativeSouthwest General Health CenterComment on above:Performed By: #### 99792096 ####[address] [address]XUQ LM.HPF (Urine sed) [#/Area]0-7Efyswq1-6Lheiyc [facility] Medical CenterComment on above:Performed By: #### 59927375 ####[address] [address]QR Chest Single Viewon 02-84-3392BM Chest Single ViewNormalSouthwest General Health CentereGFRon 47-67-3426zDHY94 mL/min/1.73 m2Low >=59[facility] Health CenterComment on above:Order Comment: Order added by Discern Expert.Performed By: #### [id number], 8071784 ####[address] [address]gFTA55 mL/min/1.73 m2Low>=59 [facility] CenterComment on above:Order Comment: Order added by Discern Expert.Performed By: #### 8578653, 82953033, 2789033 ####[address] [address]vMCM80 mL/min/1.73 m2 Low>=59[facility] Health CenterComment on above:Order Comment: Order added by Discern Expert.Performed By: #### 49362865, 571861873, 2717266, 3301341836, 01568498, 7425848, 8544948, 68675727, 2468959, 5418149 ####Lang [facility] [address] [place], [place] [address]Erdhztw for Procedure/Surgery on 57-30-1464Awylspw for Procedure/Surgery [id number]#1.00TIFFelicitasOur Lady of Mercy HospitalCorrespondence - Woundon 53-88-2739Bywxvdlhlflldj - Wound [id number]#1.00TIFFelicitasOur Lady of Mercy HospitalConsent for Procedure/Surgeryon 26-18-8552Issihzu for Procedure/Surgery [id number]#1.00CARYAllisonOur Lady of Mercy HospitalConsent for Treatmenton 53-22-3515Jsdklsj for Treatment [id number]#1.00TIFChildren's Hospital of ColumbusCorrespondence - Woundon 88-32-6482Kgoaeaikgdbply - Wound [id number]#1.00TIFChildren's Hospital of ColumbusCorrespondence - [id number]#1.00TIFMi [facility] HospitalInsurance Correspondenceon 02-37-4360Esfjgjshq [id number]#1.00TIFFelicitasOur Lady of Mercy HospitalMulti-Wound Charton 30-58-6840Adjey-Wound Chart [id number]#1.00[facility] HospitalNursing Assessment - Woundon 34-57-2443Rgxslih Assessment - Wound [id number]#1.00[facility] HospitalPhysician Orderon 94-24-7666Cvzcjsjgq Order [id number]#1.00TIFChildren's Hospital of ColumbusProgress Note - Woundon 83-94-6260Bppecwhy Note - Wound [id number]#1.00TIFFNoOur Lady of Mercy HospitalNo Panel InformationOrdered By: Elisa Ansari on 58-74-0680VYCubgopffxn White Blood Cells 3+ Gram Positive Cocci 3+ Gram Positive Rods 1+ Gram Negative RodsProvidence HospitalBasophils Auto (Bld) [#/Vol] Ordered By: Alban Arrington on 98-72-5913Afsksnmbf (Bld) [#/Vol]0.1 10*3/uL 0.0-0.2FCleveland Clinic Lutheran HospitalBasophils/100 WBC Auto (Bld)Ordered By: Alban Arrington on 24-12-6358Ponxjxdjf/100 WBC (Bld)0.7 %.[facility] Southeast OhioCalcium [Mass/volume] in Serum or PlasmaOrdered By: Alban Arrington on 80-95-0164Kthxybl [Mass/Vol]8.7 mg/dL8.6-10.3FCleveland Clinic Lutheran HospitalCarbon dioxide, total [Moles/volume] in Serum or PlasmaOrdered By: Alban Arrington on 72-82-4473UA3 [Moles/Vol]41.1 mmol/L21.0-31.0[facility] OhioChloride [Moles/volume] in Serum or PlasmaOrdered By: Alban Arrington on 36-04-7010Gtgbriyb [Moles/Vol]100 mmol/I80-613NbafamrqfSelect Medical Specialty Hospital - Southeast OhioCreatinine [Mass/volume] in Serum or PlasmaOrdered By: Alban Arrington on 41-83-5706Fqaeycfcbf [Mass/Vol]1.60 mg/dL0.70-1.30[facility] OhioEosinophils Auto (Bld) [#/Vol]Ordered By: Alban Arrington on 93-28-9963Gzvjconuzfh (Bld) [#/Vol]0.5 10*3/uL0.0-0.45[facility] Southeast OhioEosinophils/100 WBC Auto (Bld)Ordered By: Alban Arrington on 06-21-2023 Eosinophils/100 WBC (Bld)5.4 %.[facility] Southeast OhioErythrocyte distribution width Auto (RBC) [Ratio]Ordered By: Alban Arrington on 06-21-2023 Erythrocyte distribution width (RBC) [Ratio]16.0 %12.0-14.8[facility] Southeast OhioGlucose Glucometer (BldC) [Mass/Vol]Ordered By: Alban Arrington on 50-02-1186Fygjvtz [Mass/Vol]200 mg/dLSelect Medical Specialty Hospital - Southeast OhioComment on above:Random Glucose Reference Range is dependent on time and content of last meal. Glucose of more than 200 mg/dL in a nonstressed, ambulatory subject supports the diagnosis of Diabetes Mellitus.Glucose [Mass/volume] in Serum or PlasmaOrdered By: Alban Arrington on 65-22-3436Cyuavrl [Mass/Vol]60 mg/yN42-671 [facility] - Southeast OhioComment on above:Delta: 220 on 06/20/23-0739ADA recommended reference rangeRandom Glucose Reference Range is dependent on time and content of last meal. Glucose of more than 200 mg/dL in a nonstressed, ambulatory subject supports the diagnosis of Diabetes Mellitus.Hematocrit Auto (Bld) [Volume fraction]Ordered By: Alban Arrington on 50-77-1154Xakddenajl (Bld) [Volume fraction]46.3 %38.8-50.0[facility] Southeast OhioHemoglobin [Mass/volume] in BloodOrdered By: Alban Arrington on 23-51-6974Qwqjvpfvwl (Bld) [Mass/Vol]14.9 g/dL13.0-17.0[facility] - Southeast OhioLeukocytes [#/volume] corrected for nucleated erythrocytes in Blood by Automated coun Ordered By: Alban Arirngton on 19-77-1826ASU corrected for nucl RBC Auto (Bld) [#/Vol]9.5 10*3/uL4.1-10.5FCleveland Clinic Lutheran HospitalLymphocytes Auto (Bld) [#/Vol]Ordered By: Alban Arrington on 72-06-0590Nfhkrbokfmy (Bld) [#/Vol] 2.5 10*3/uL1.00-4.8[facility] Southeast OhioLymphocytes/100 WBC Auto (Bld)Ordered By: Alban Arrington on 94-70-0374Jfvkwceibjc/100 WBC (Bld)26.3 %. [facility] OhioMCH Auto (RBC) [Entitic mass]Ordered By: Alban Arrington on 12-80-4061AFA (RBC) [Entitic mass]28.4 pg27.5-35.2FCleveland Clinic Lutheran HospitalMCHC Auto (RBC) [Mass/Vol]Ordered By: Alban Arrington on 83-62-3386ABNZ (RBC) [Mass/Vol]32.2 g/dL32.5-35.6FCleveland Clinic Lutheran HospitalMCV Auto (RBC) [Entitic vol]Ordered By: Alban Arrington on 99-03-1834XIU (RBC) [Entitic vol]88.3 fL83.5-101[facility] Southeast OhioMagnesium [Mass/volume] in Serum or PlasmaOrdered By: Alban Arrington on 06-21-2023 Magnesium [Mass/Vol]1.8 mg/dL1.9-2.7FCleveland Clinic Lutheran HospitalMonocytes Auto (Bld) [#/Vol]Ordered By: Alban Arrington on 03-24-2811Wczwhdmrz (Bld) [#/Vol]0.9 10*3/uL0.0-0.8[facility] OhioMonocytes/100 WBC Auto (Bld)Ordered By: Alban Arrington on 32-27-4774Zxjwyoycp/100 WBC (Bld)9.9 %. [facility] Southeast OhioNeutrophils Auto (Bld) [#/Vol]Ordered By: Alban Arrington on 71-01-9202Vmzddwlsnlg (Bld) [#/Vol]5.5 10*3/uL1.8-7.7FCleveland Clinic Lutheran HospitalNeutrophils/100 WBC Auto (Bld)Ordered By: Alban Arrington on 93-19-1329Fkcbgehdtdm/100 WBC (Bld)57.7 %.[facility] [place] No Panel InformationOrdered By: Alban Arrington on 75-62-9477Gdyndwgwc GFR (CKD-EPI)47.816 mL/MinSelect Medical Specialty Hospital - Southeast OhioPharmacy Creatinine Clearance (Chem69.61[facility] - Southeast OhioBedside Glucose #[address]/AlfonsoCleveland Clinic Lutheran HospitalBedside Glucose CommentSee commentSelect Medical Specialty Hospital - Southeast OhioComment on above:Glu2: Will Repeat Test Nucleated erythrocytes [Presence] in Blood by Automated countOrdered By: Alban Arrington on 40-12-6498Trobbpcyx RBC Auto Ql (Bld)0.1 /100{WBC}0-0.5FCleveland Clinic Lutheran HospitalPlatelet mean volume Auto (Bld) [Entitic vol]Ordered By: Alban Arrington on 20-11-3420Nlxezskq mean volume (Bld) [Entitic vol]7.1 fL 6.6-10.1FCleveland Clinic Lutheran HospitalPlatelets Auto (Bld) [#/Vol]Ordered By: Alban Arrington on 59-51-1063Gtcdbaaky (Bld) [#/Vol]241 10*3/wF020-175JiepgqzwfSelect Medical Specialty Hospital - Southeast OhioPotassium [Moles/volume] in Serum or PlasmaOrdered By: Alban Arrington on 99-30-6172Jlfygokya [Moles/Vol]4.4 mmol/L3.5-5.1FCleveland Clinic Lutheran HospitalRBC Auto (Bld) [#/Vol]Ordered By: Alban Arrington on 70-37-9909PEH (Bld) [#/Vol]5.24 10*6/uL3.90-5.60[facility] Medical Centererum or plasma anion gap determinationOrdered By: Alban Arrington on 37-46-1304Gqcvn gap [Moles/Vol]6.3 mmol/L6.0-15.0W[facility]-Patterson Medical Centerodium [Moles/volume] in Serum or PlasmaOrdered By: Alban Arrington on 81-50-3524Iiltni [Moles/Vol]143 mmol/S651-163OvesntjrgSelect Medical Specialty Hospital - Southeast Ohio Urea nitrogen [Mass/volume] in Serum or PlasmaOrdered By: Alban Arrington on 49-53-9415Vwjh nitrogen [Mass/Vol]38 mg/dL7-[facility] WBC Auto (Bld) [#/Vol]Ordered By: Alban Arrington on 82-55-7688MRA (Bld) [#/Vol] 9.5 10*3/uL4.1-10.5FCleveland Clinic Lutheran HospitalLaboratory - Chemistry and Chemistry - challengeOrdered By: Alban Arrington on 64-08-5402ZB5 [Moles/Vol]38.0 mmol/L23.0-27.0[facility] Hospital - Southeast OhioHCO3 (Bld) [Moles/Vol]36.0 mmol/L23.0-29.0[facility] - Southeast OhioNo Panel InformationOrdered By: Alban Arrington on 99-94-2318Hlowgyzj Blood Base Excess8.1 mmol/L-3.0-3.0 [facility]Arterial Blood Oxygen Content9.0 mmol/L6.6-9.7 [facility] OhioArterial Blood Oxygen Oigpnpazgr09.1 % 95.0-100.0[facility] OhioArterial Blood Partial Pressure CO2 63.6 mm[Hg]35.0-45.0[facility] OhioArterial Blood Partial Pressure O269.0 mm[Hg]80.0-100.0[facility] OhioArterial Blood pH7.377.35-7.45[facility] OhioBlood Gas Critical ValueSee Dunlap Memorial HospitalComment on above:Critical Value called on: 06/20/2023 at 17:52Blood Gas Liter Flow5l L/minSelect Medical Specialty Hospital - Southeast OhioBlood Gas Sample SiteRight radialSelect Medical Specialty Hospital [facility] OhioFiO2Na % [facility] OhioMonocyte distribution width [Entitic volume] in Blood by AutomatedOrdered By: Alban Arrington on 06-04-9453Giueanum distribution width Auto (Bld) [Entitic vol]15.91 %0.00-20.00[facility] Automated erythrocytes count in urine sediment (number/area)Ordered By: Art Kirby on 50-72-2875XVJ Auto (Urine sed) [#/Area]0-1 [HPF]0-4FCleveland Clinic Lutheran HospitalAutomated leukocytes count in urine sediment (number/area)Ordered By: Art Sawantarthy on 20-87-8744YFL Auto (Urine sed) [#/Area]None seen [HPF]0-4FCleveland Clinic Lutheran HospitalBasophils Auto (Bld) [#/Vol]Ordered By: Art Sawantarthy on 38-90-5659Gzgxcksvj (Bld) [#/Vol]0.0 10*3/uL0.0-0.2FCleveland Clinic Lutheran HospitalBasophils/100 WBC Auto (Bld) Ordered By: Art Kofi on 57-25-9993Cfxnhnbjk/100 WBC (Bld)0.7 %.[facility] OhioBilirubin Auto test strip Ql (U)Ordered By: Artjasvir Kirby on 71-17-6310Wbibfrkkf Ql (U)NegativeNegativeSelect Medical Specialty Hospital - Southeast OhioCOVID CepheidOrdered By: Art Kirby on 23-75-5822GAMC-CoV-2 (COVID- 19) Ab IA QlNegativeNegativeSelect Medical Specialty Hospital - Southeast OhioComment on above: This is a duplicate Cepheid Xpert Xpress CoV-2/Flu/RSV Plus RNA by RT-PCR result to be used for statistical tracking purpose only.SARS-CoV-2 (COVID-19) RNA ERIBERTO+probe Ql (Unsp spec)[facility] OhioCalcium [Mass/volume] in Serum or PlasmaOrdered By: Art Kirby on 40-95-6192Ezgaolv [Mass/Vol] 8.8 mg/dL8.6-10.3FCleveland Clinic Lutheran HospitalCarbon dioxide, total [Moles/volume] in Serum or PlasmaOrdered By: Art Kirby on 60-87-3617VK8 [Moles/Vol]33.2 mmol/L21.0-31.0[facility] OhioChloride [Moles/volume] in Serum or PlasmaOrdered By: Art Kirby on 06-18-2023 Chloride [Moles/Vol]102 mmol/G33-822QolzcckvuSelect Medical Specialty Hospital - Southeast OhioCreatinine [Mass/volume] in Serum or PlasmaOrdered By: Art Kirby on 06-18-2023 Creatinine [Mass/Vol]1.51 mg/dL0.70-1.30[facility] Eosinophils Auto (Bld) [#/Vol]Ordered By: Art Kirby on 06-18-2023 Eosinophils (Bld) [#/Vol]0.2 10*3/uL0.0-0.45[facility] Eosinophils/100 WBC Auto (Bld)Ordered By: Art Kirby on 06-18-2023 Eosinophils/100 WBC (Bld)3.1 %.[facility] OhioErythrocyte distribution width Auto (RBC) [Ratio]Ordered By: Art Kirby on 06-18-2023 Erythrocyte distribution width (RBC) [Ratio]15.4 %12.0-14.8[facility] OhioGlucose [Mass/volume] in Serum or PlasmaOrdered By: Art Kirby on 69-64-3436Xethxlh [Mass/Vol]294 mg/jI92-673NjqqklapbSelect Medical Specialty Hospital - Southeast OhioComment on above:ADA recommended reference rangeRandom Glucose Reference Range is dependent on time and content of last meal. Glucose of more than 200 mg/dL in a nonstressed, ambulatory subject supports the diagnosisof Diabetes Mellitus.Hematocrit Auto (Bld) [Volume fraction]Ordered By: Art Kirby on 05-87-1627Ixvvooqhxh (Bld) [Volume fraction]46.7 %38.8-50.0[facility] OhioHemoglobin [Mass/volume] in BloodOrdered By: Art Kirby on 08-20-5148Chghrinnaf (Bld) [Mass/Vol]14.9 g/dL13.0-17.0[facility] OhioKetones Auto test strip (U) [Mass/Vol]Ordered By: Art Kirby on 73-59-8015Wexdzzs (U) [Mass/Vol]NegativeNegativeSelect Medical Specialty Hospital - Southeast OhioLaboratory - UrinalysisOrdered By: Art Kirby on 06-18-2023 Hyaline casts LM Ql (Urine sed)None seen [LPF]0-8[facility] OhioLeukocytes [#/volume] corrected for nucleated erythrocytes in Blood by Automated counOrdered By: Art Kirby on 76-05-3626SIW corrected for nucl RBC Auto (Bld) [#/Vol]6.7 10*3/uL4.1-10.5FC[facility] Lymphocytes Auto (Bld) [#/Vol]Ordered By: Art Kirby on 06-18-2023 Lymphocytes (Bld) [#/Vol]1.4 10*3/uL1.00-4.8[facility] Lymphocytes/100 WBC Auto (Bld)Ordered By: Art Kirby on 06-18-2023 Lymphocytes/100 WBC (Bld)20.2 %.[facility] CenterH Auto (RBC) [Entitic mass]Ordered By: Art Kirby on 78-39-9264VGL (RBC) [Entitic mass] 28.2 pg27.5-35.2FC[facility] Clinic Lutheran HospitalMCHC Auto (RBC) [Mass/Vol] Ordered By: Art Kirby on 86-78-1764WRDW (RBC) [Mass/Vol]32.0 g/dL 32.5-35.6FCleveland Clinic Lutheran HospitalMCV Auto (RBC) [Entitic vol]Ordered By: Art Kirby on 54-88-6406JPD (RBC) [Entitic vol]88.2 fL83.5-101 [facility] OhioMonocyte distribution width [Entitic volume] in Blood by AutomatedOrdered By: Art Kirby on 49-14-2226Vyothyzp distribution width Auto (Bld) [Entitic vol]15.12 %0.00-20.00[facility] OhioMonocytes Auto (Bld) [#/Vol]Ordered By: Art Kirby on 24-31-6533Dgrtdhfum (Bld) [#/Vol]0.6 10*3/uL0.0-0.8[facility] OhioMonocytes/100 WBC Auto (Bld)Ordered By: Art Kirby on 06-18-2023 Monocytes/100 WBC (Bld)9.2 %.[facility] OhioNatriuretic peptide B [Mass/Vol]Ordered By: Art Kirby on 57-89-1778Dwafeakzjex peptide B (Bld) [Mass/Vol]98.0 pg/mL5-100[facility] Neutrophils Auto (Bld) [#/Vol]Ordered By: Art Kirby on 06-18-2023 Neutrophils (Bld) [#/Vol]4.5 10*3/uL1.8-7.7FC[facility] Neutrophils/100 WBC Auto (Bld)Ordered By: Art Kirby on 06-18-2023 Neutrophils/100 WBC (Bld)66.8 %.[facility] OhioNo Panel InformationOrdered By: Art Kirby on 48-18-4228Zgymgeivd GFR (CKD-EPI) 51.256 mL/MinSelect Medical Specialty Hospital - Southeast OhioPharmacy Creatinine Clearance (Chem71.87[facility] OhioNucleated erythrocytes [Presence] in Blood by Automated countOrdered By: Art Kirby on 46-12-3761Dyhmmyvju RBC Auto Ql (Bld)0.1 /100{WBC}0-0.5FCleveland Clinic Lutheran HospitalPlatelet mean volume Auto (Bld) [Entitic vol]Ordered By: Art Kirby on 06-18-2023 Platelet mean volume (Bld) [Entitic vol]7.2 fL6.6-10.1FCleveland Clinic Lutheran HospitalPlatelets Auto (Bld) [#/Vol]Ordered By: Art Kirby on 06-18-2023 Platelets (Bld) [#/Vol]214 10*3/yW454-100TbasahnerSelect Medical Specialty Hospital - [facility] [place] Potassium [Moles/volume] in Serum or PlasmaOrdered By: Art Kirby on 19-65-4272Mdwaxbdab [Moles/Vol]5.2 mmol/L3.5-5.1FC[facility] Luther[facility] HospitalProtein Auto test strip (U) [Mass/Vol]Ordered By: Art Kirby on 70-79-8023Akrtakf (U) [Mass/Vol]100 mg/dLNegativeSelect Medical Specialty Hospital - Southeast OhioRBC Auto (Bld) [#/Vol]Ordered By: Art Kirby on 20-86-9283NTC (Bld) [#/Vol]5.30 10*6/uL3.90-5.60[facility] Medical Centererum or plasma anion gap determinationOrdered By: Art Kirby on 78-84-2835Fjmwo gap [Moles/Vol]8.0 mmol/L6.0-15.0[facility] Medical Centerodium [Moles/volume] in Serum or PlasmaOrdered By: Art Kirby on 06-18-2023 Sodium [Moles/Vol]138 mmol/R300-673TbvmnutczWright-Patterson Medical Centerquamous epithelial cells detection in urine sediment by light microscopyOrdered By: Art Kirby on 37-68-9671Orwjrrhbtq cells.squamous LM Ql (Urine sed)0-1 [HPF]0-2FCleveland Clinic Lutheran HospitalTroponin I.cardiac [Mass/volume] in Serum or Plasma by Detection limit <= 0.01 ng/Ordered By: Art Kirby on 95-56-9588Emgplpug I.cardiac DL <= 0.01 ng/mL [Mass/Vol]8.0 pg/mL0.0-20.0 [facility] OhioUrea nitrogen [Mass/volume] in Serum or Plasma Ordered By: Art Kirby on 33-40-9298Vuhz nitrogen [Mass/Vol]47 mg/dL7-25 [facility] OhioUrine appearanceOrdered By: Art Kirby on 90-59-9024Rkzdqqhlak (U)ClearClearFCleveland Clinic Lutheran HospitalUrine bacteria detection by automated methodOrdered By: Art Kirby on 06-18-2023 Bacteria Auto Ql (U)None seenNone SeenSelect Medical Specialty Hospital - Southeast OhioUrine colorOrdered By: Art Kirby on 68-59-9423Mwtfr (U)YellowYellowSelect Medical Specialty Hospital - Southeast OhioUrine glucose measurement by automated test strip (mass/volume)Ordered By: Art Kirby on 08-62-2833Owquexo Auto test strip (U) [Mass/Vol]>=1000 mg/dLNormalSelect Medical Specialty Hospital - Southeast OhioUrine hemoglobin detection by automated test stripOrdered By: Art Kirby on 67-82-4758Ufffxveths Auto test strip Ql (U)NegativeNegTogus VA Medical CenterUrine leukocyte esterase detection by automated test stripOrdered By: Art Kirby on 93-32-4034Aiysjouuf esterase Auto test strip Ql (U) NegativeNegTogus VA Medical CenterUrine nitrite detection by automated test stripOrdered By: Art Kirby on 52-50-8555Losorla Auto test strip Ql (U)NegativeNegativeSelect Medical Specialty Hospital - Southeast OhioUrobilinogen Auto test strip (U) [Mass/Vol]Ordered By: Art Kirby on 13-42-5901Pqvenqexiqfp (U) [Mass/Vol]Normal mg/dLNormalSelect Medical Specialty Hospital - Southeast OhioWBC Auto (Bld) [#/Vol]Ordered By: Art Sawantarthy on 54-44-5802ZQG (Bld) [#/Vol]6.7 10*3/uL 4.1-10.5FCleveland Clinic Lutheran HospitalpH Auto test strip (U)Ordered By: Art Sawantarthy on 04-72-7771hY (U)1.020 [pH]1.001-1.030[facility] OhiopH (U)5.5 [pH]5.0-9.0[facility] OhioCHEMISTRY Ordered By: Yahaira Limon on 45-35-1900Orzeqkj [Mass/Vol]332 mg/fVYppe20 - 99 mg/dLINTEGRIS [facility]AM[facility]OSPITAL [facility] [place] POC SubsectionComment on above:Result Comment: Notified RN/MDPOC UsernamRodger Hernandez Interpretation CodeFT POC SubsectionSodium [Moles/Vol]460462511540 mmol/LInvalid Interpretation CodeFT POC Subsection Sodium [Moles/Vol]464510010 mmol/LInvalid Interpretation CodeFT POC Subsection Glucose [Mass/Vol]341 mg/yTCncs52 - 99 mg/dLINTEGRIS MIAMI HOSPITAL – [place] POC SubsectionComment on above: Result Comment: Notified RN/MDPOC UsernamSonu Steelevalid Interpretation Code [facility] POC SubsectionSodium [Moles/Vol]713305440234 mmol/LInvalid Interpretation CodeFTMC POC SubsectionSodium [Moles/Vol]012746303 mmol/LInvalid Interpretation CodeFT POC SubsectionGlucose [Mass/Vol]172 mg/kMDwgj29 - 99 mg/dLINTEGRIS [facility]AM[facility]OSP[facility] [place] POC SubsectionComment on above:Result Comment: Notified RN/MDPOC UsernamORTIZ Steele Invalid Interpretation CodeFT POC SubsectionSodium [Moles/Vol]877697481018 mmol/LInvalid Interpretation CodeFTMC POC SubsectionSodium [Moles/Vol]811301982 mmol/LInvalid Interpretation [facility] POC SubsectionCHEMISTRYOrdered By: SYSTEM SYSTEM on 03-32-9183Tgezr gap [Moles/Vol]11 mmol/LNormal6 - 16 mEq/LFT[facility] Remisol Calcium [Mass/Vol]8.5 mg/dLLow8.9 - 11.1 mg/dLINTEGRIS [facility]I [facility]OSP[facility] [place] RemisolChloride [Moles/Vol] 105 mmol/OLjoxxz155 - 111 mmol/LFTMC RemisolCO2 [Moles/Vol]28 mmol/NRsouci65 - 31 mmol/LFT[facility] RemisolCreatinine [Mass/Vol]1.6 mg/dLHigh0.5 - 1.3 mg/dLINTEGRIS [facility]OSP[facility] [place] RemisolGFR/1.73 sq M.predicted among non-blacks MDRD (S/P/Bld) [Vol rate/Area]48 mL/min/1.73 m2Low>=59mL/min/1.73 m2IN[facility] [place] Chem SComment on above:Interpretive Data: Chronic kidney disease could be indicated at eGFR's of less than 60 mL/min/1.73m2. Kidney failure is indicated at less than 15 mL/min/1.73m2.Glucose [Mass/Vol]165 mg/wEXwrurj85 - 199 mg/dLINTEGRIS [facility]OS[facility] [place] RemisolComment on above:Interpretive Data: If this glucose result represents a fasting glucose, interpretation should referto the following reference range: 55-99 mg/dLPotassium [Moles/Vol] 4.7 mmol/LNormal3.5 - 5.3 mmol/LFTMC RemisolSodium [Moles/Vol]139 mmol/LNormal 135 - 145 mmol/LFTMC RemisolUrea nitrogen [Mass/Vol]63 mg/dLHigh5 - 21 mg/dLINTEGRIS [facility] [place] RemisolUrea nitrogen/Creatinine [Mass ratio]39 mg/zlWqps68 - 20[facility] [place] Remisol CHEMISTRYOrdered By: SYSTEM SYSTEM on 60-65-7663Utcjs gap [Moles/Vol]7 mmol/L Normal6 - 16 mEq/LFTMC RemisolCalcium [Mass/Vol]8.0 mg/dLLow8.9 - 11.1 mg/dLFTMC RemisolChloride [Moles/Vol]106 mmol/QLoxmhe994 - 111 mmol/LFT[facility] RemisolCO2 [Moles/Vol]30 mmol/IJtcfaj52 - 31 mmol/LFTMC RemisolGFR/1.73 sq M.predicted among non-blacks MDRD (S/P/Bld) [Vol rate/Area]37 mL/min/1.73 m2Low >=59mL/min/1.73 m2FT Chem SComment on above:Interpretive Data: Chronic kidney disease could be indicated at eGFR's of less than 60 mL/min/1.73m2. Kidney failure is indicated at less than 15 mL/min/1.73m2.Glucose [Mass/Vol]78 mg/dL Ylgpgs82 - 199 mg/dLFT RemisolComment on above:Interpretive Data: If this glucose result represents a fasting glucose, interpretation should referto the following reference range: 55-99 mg/dLPotassium [Moles/Vol]5.1 mmol/LNormal3.5 - 5.3 mmol/LFTMC RemisolSodium [Moles/Vol]138 mmol/WKgglco222 - 145 mmol/LFTMC RemisolUrea nitrogen [Mass/Vol]71 mg/dLHigh5 - 21 mg/dLFT[facility] RemisolUrea nitrogen/Creatinine [Mass ratio]36 mg/ydBgtm60 - 20[facility] RemisolCHEMISTRYOrdered By: Liberty Hicks on 47-71-1437Axkfzkllha [Mass/Vol]2.0 mg/dLHigh0.5 - 1.3 mg/dLFTMC RemisolHEMATOLOGYOrdered By: SYSTEM SYSTEM on 10-77-3544Lbdveqlnt/100 WBC (Bld)0.3 %Normal0.0 - 2.0 %[facility] HemeAutoSSBasophils/Leukocytes [...] 7.5 E9/LFTMC HemeAutoSSHEMATOLOGYOrdered By: Liberty Hicks on 48-25-4897Ykdnttrzwhr distribution width (RBC) [Ratio]15.0 %High10.9 - 14.2 %[facility] HemeAutoSSHematocrit (Bld) [Volume fraction]42.1 %Neitsr62.7 - 49.0 %[facility] HemeAutoSSHemoglobin (Bld) [Mass/Vol]13.3 g/dLLow13.5 - 17.5 gm/dLFTMC HemeAutoSSMCH (RBC) [Entitic mass]28.1 tpQiepci59.0 - 34.0 pgFTMC HemeAutoSSMCHC (RBC) [Mass/Vol]31.6 g/gSObexpv28.4 - 36.0 gm/dLFTMC HemeAutoSSMCV (RBC) [Entitic vol]88.8 cQJqhlca01.0 - 100.0 fLFTMC HemeAutoSSPlatelet mean volume (Bld) [Entitic vol]7.3 fLNormal6.4 - 10.8 fLFTMC HemeAutoSSPlatelets (Bld) [#/Vol]225.0 E9/XYmopgi597.0 - 500.0 E9/LFTMC HemeAutoSSRBC (Bld) [#/Vol]4.7 E12/LNormal4.3 - 5.9 E12/LFTMC HemeAutoSSWBC corrected for nucl RBC Auto (Bld) [#/Vol]7.8 E9/LNormal4.0 - 11.0 E9/LFTMC HemeAutoSSCHEMISTRYOrdered By: SYSTEM SYSTEM on 52-86-0997Xrpin gap [Moles/Vol]9 mmol/LNormal6 - 16 mEq/LFT[facility] Remisol Calcium [Mass/Vol]8.3 mg/dLLow8.9 - 11.1 mg/dLFTMC RemisolChloride [Moles/Vol] 102 mmol/KUkxyow846 - 111 mmol/LFT[facility] RemisolCO2 [Moles/Vol]30 mmol/WByylkh03 - 31 mmol/LFT[facility] RemisolCreatinine [Mass/Vol]2.4 mg/dLHigh0.5 - 1.3 mg/dLFTMC RemisolGFR/1.73 sq M.predicted among non-blacks MDRD (S/P/Bld) [Vol rate/Area]29 mL/min/1.73 m2Low>=59mL/min/1.73 m2FT Chem SComment on above:Interpretive Data: Chronic kidney disease could be indicated at eGFR's of less than 60 mL/min/1.73m2. Kidney failure is indicated at less than 15 mL/min/1.73m2.Glucose [Mass/Vol]139 mg/wTXbvopc96 - 199 mg/dLFTMC RemisolComment on above:Interpretive Data: If this glucose result represents a fasting glucose, interpretation should referto the following reference range: 55-99 mg/dLPotassium [Moles/Vol] 4.8 mmol/LNormal3.5 - 5.3 mmol/LFT[facility] RemisolSodium [Moles/Vol]136 mmol/LNormal 135 - 145 mmol/LFT[facility] RemisolUrea nitrogen [Mass/Vol]69 mg/dLHigh5 - 21 mg/dLFTMC RemisolUrea nitrogen/Creatinine [Mass ratio]29 mg/mfBqqw03 - 20[facility] RemisolCRP [Mass/Vol]0.7 mg/dLNormal<=1.9mg/dLFTMC RemisolCHEMISTRYOrdered By: Erin Wright on 48-00-6356Evmbdms Elph (U) [Mass fraction]97.0 mg/dLInvalid Interpretation CodeINTEGRIS MIAMI HOSPITAL – [place] RemisolComment on above:Interpretive Data: The reference range and other method performance specifications have not been established for this test; results should be integrated into the clinical context for interpretation. Creatinine (U) [Mass/Vol]93.4 mg/dLInvalid Interpretation CodeINTEGRIS MIAMI HOSPITAL – [place] Remisol Comment on above:Interpretive Data: The reference range and other method performance specifications have not been established for this test; results should be integrated into the clinical context for interpretation.Sodium (U) [Moles/Vol]21 mmol/LInvalid Interpretation CodeINTEGRIS MIAMI HOSPITAL [facility] [place] RemisolComment on above: Interpretive Data: The reference range and other method performance specifications have not been established for this test; results should be integrated into the clinical context for interpretation.CHEMISTRYOrdered By: Hudson Schmidt on 06-13-2023U Jrsuowgdnh743 mOsm/ofInigtc45 - 1400 mOsm/kgMC Man UA SSHEMATOLOGYOrdered By: SYSTEM SYSTEM on 46-33-9847Fhruyanoz/100 WBC (Bld)0.3 %Normal0.0 - 2.0 %[facility] HemeAutoSSBasophils/Leukocytes Auto (Bld) [Pure # fraction]0.0 E9/LNormal0.0 [...] 7.5 E9/LFTMC HemeAutoSSHEMATOLOGYOrdered By: Hudson Rhodes on 17-60-7117Wvtuaubtiru distribution width (RBC) [Ratio]15.4 %High10.9 - 14.2 % [facility] HemeAutoSSHematocrit (Bld) [Volume fraction]44.4 %Vjcjmn95.7 - 49.0 %[facility] HemeAutoSSHemoglobin (Bld) [Mass/Vol]14.0 g/iQCrctrw81.5 - 17.5 gm/dLFTMC HemeAutoSSMCH (RBC) [Entitic mass]28.4 eiFyddlh96.0 - 34.0 pgFTMC HemeAutoSSMCHC (RBC) [Mass/Vol]31.6 g/kBXwvkyo37.4 - 36.0 gm/dLFTMC HemeAutoSSMCV (RBC) [Entitic vol]90.1 fYHnkeuf51.0 - 100.0 fLFTMC HemeAutoSSPlatelet mean volume (Bld) [Entitic vol]7.3 fLNormal6.4 - 10.8 fLFTMC HemeAutoSSPlatelets (Bld) [#/Vol]211.0 E9/XNblesa221.0 - 500.0 E9/LFTMC HemeAutoSSRBC (Bld) [#/Vol]4.9 E12/LNormal4.3 - 5.9 E12/LFTMC HemeAutoSSWBC corrected for nucl RBC Auto (Bld) [#/Vol]6.0 E9/LNormal4.0 - 11.0 E9/LFTMC HemeAutoSSReference Laboratory Testing Ordered By: Jalil DomainUser on 35-59-3979Bmkcfiwljb protein B Ab Qn (S)AI Invalid Interpretation Code0.0-0.9AIFTMC SendOutsSSChromatin Ab QnAIInvalid Interpretation Code0.0-0.9AIFTMC SendOutsSSDNA double strand Ab Qn (S)33 [iU]/mL High0-9International_Unit/mLFTMC SendOutsSSComment on above:Result Comment: Negative <5 Equivocal 5 - 9 Positive >9Jo-1 extractable nuclear Ab Qn (S)AIInvalid Interpretation Code 0.0-0.9[facility] SendOutsSSNuclear Ab Ql (S)PositiveInvalid Interpretation Code NegativeINTEGRIS MIAMI [facility]OSPITAL – [place] SendOutsSSComment on above:Result Comment: Performed at: [address] [id number] PhD Porras VincentRibonucleoprotein extractable nuclear Ab Qn (S) AIInvalid Interpretation Code0.0-0.9[facility] SendOutsSSSCL-70 extractable nuclear Ab Qn (S)AIInvalid Interpretation Code0.0-0.9[facility] SendOutsSSSee below:Comment Invalid Interpretation CodeFT SendOutsSSComment on above:Result Comment: Pattern Potential Disease Association Homogeneous Systemic Lupus Erythematosus, Drug Induced Systemic Lupus Erythematosus, Chronic Autoimmune hepatitis, Juvenile Idiopathic Arthritis Speckled Sjogren Syndrome, Systemic Lupus Erythematosus, Subacute Cutaneous Lupus, Lupus, Congenital Heart Block, Mixed Connective Tissue Disease, Scleroderma-diffuse, Scleroderma-Autoimmune Myositis Overlap Syndrome, Systemic Lupus Prjqwighezzbv-Vzhzlmojnjv-Lqqthgqqso Myositis Overlap Syndrome, Systemic Autoimmune Rheumatic Disease, [...] Cytopenias, Linear Scleroderma, Antiphospholipid Syndrome Performed at: [address] [id number] PhD Vern VincentSjogrens syndrome-A extractable nuclear Ab Qn (S)AIInvalid Interpretation Code0.0-0.9AGoleta Valley Cottage HospitalSjogrens syndrome-B extractable nuclear Ab Qn (S)AIInvalid Interpretation Code0.0-0.9[facility] SendOutsSSSmith extractable nuclear Ab Qn (S)AIInvalid Interpretation Code 0.0-0.9[facility] SendOutsSSURINALYSISOrdered By: Hudson Schmidt on 06-13-2023 Bacteria LM Ql (Urine sed)Trace /HPFNormalTrace/HPFINTEGRIS MIAMI HOSP[facility] [place] UA Auto SSBilirubin Ql (U)Negative (06/13/23 10:09 AM)NormalNegativeINTEGRIS MIAMI [facility]OSPITAL [facility] [place] UA Auto SSClarity (U)Clear (06/13/23 10:09 AM)NormalClearFSOUTHWESTERN [facility] [place] UA Auto SSColor (U)Yellow (06/13/23 10:09 AM)NormalYellowINTEGRIS MIAMI HOSPITAL [facility] [place] UA Auto SSEpithelial cells.squamous LM.HPF (Urine sed) [#/Area]0-2 /HPFNormal0-2/HPFINTEGRIS MIAMI HOSPITAL [facility] [place] UA Auto SSGlucose Test strip (U) [Mass/Vol]3+ *ABN* (06/13/23 10:09 AM)Invalid Interpretation CodeNegativeINTEGRIS MIAMI [facility]OSPITAL [facility] [place] UA Auto SSHemoglobin Ql (U)Negative (06/13/23 10:09 AM)NormalNegativeINTEGRIS [facility]I [facility]OSPITAL [facility] [place] UA Auto SSKetones (U) [Mass/Vol]Negative (06/13/23 10:09 AM)NormalNegativeINTEGRIS MIAMI HOSPITAL [facility] [place] UA Auto SSLithium.plasma/[place].RBC (Bld) [Mass ratio]0-3 /HPFNormal0-3/HPFINTEGRIS MIAMI HOSPITAL [facility] [place] UA Auto SSMucus Ql (Urine sed)Trace (06/13/23 10:09 AM)NormalINTEGRIS MIAMI HOSPITAL – [place] UA Auto SSNitrite Ql (U)Negative (06/13/23 10:09 AM)NormalNegativeINTEGRIS [facility]I [facility]OSPITAL [facility] [place] UA Auto SSpH (U)5.5 *NA* (06/13/23 10:09 AM)Invalid Interpretation Code5.0 - 9.0[facility] UA Auto SSProtein (U) [Mass/Vol]2+ *ABN* (06/13/23 10:09 AM)Invalid Interpretation CodeNegativeINTEGRIS MIAMI HOSPITAL [facility] [place] UA Auto SSSpecific gravity (U) [Rel density]1.025 *NA* (06/13/23 10:09 AM)Invalid Interpretation Code1.005 - 1.030[facility] UA Auto SSUA Spec DescClean Catch (06/13/23 10:09 AM)NormalINTEGRIS MIAMI HOSPITAL – [place] UA Auto SSUrobilinogen Qn (U)0.3875145 {Itz'U}/dLNormal0.0 - 1.0 EU/dLINTEGRIS MIAMI HOSPITAL [facility] [place] UA Auto SSWBC Auto Ql (U)Negative (06/13/23 10:09 AM)NormalNegativeINTEGRIS [facility]I [facility]OSPITAL [facility] [place] UA Auto SSWBC casts LM.LPF (Urine sed) [#/Area]4-10 (06/13/23 10:09 AM)NormalINTEGRIS MIAMI HOSPITAL – [place] UA Auto SSWBC LM.HPF (Urine sed) [#/Area]0-5 [...] to 24 hours.CHEMISTRYOrdered By: SYSTEM SYSTEM on 70-54-6284Oeuhcjtn I.cardiac [Mass/Vol]9.10 pg/mLLow15.90 - 38.40 pg/mLFT RemisolComment on above:Interpretive Data: The 95% CI (Confidence Interval) PPV (Positive Predictive Value) for myocardial infarction in females is 38 pg/mL, in males 51 pg/mL. The results should be used in conjunction withclinical conditions of myocardial infarction. (Access High Sensitivity Troponin I Instructions For Use, [employer], March 2018)Magnesium [Mass/Vol]2.1 mg/dLNormal1.3 - 2.4 mg/dLFT Remisol Troponin I.cardiac [Mass/Vol]9.20 pg/mLLow15.90 - 38.40 pg/mLFT RemisolComment on above:Interpretive Data: The 95% CI (Confidence Interval) PPV (Positive Predictive Value) for myocardial infarction in females is 38 pg/mL, in males 51 pg/mL. The results should be used in conjunction withclinical conditions of myocardial infarction. (Access High Sensitivity Troponin I Instructions For Use, [employer], March 2018)Troponin I.cardiac [Mass/Vol]7.00 pg/mLLow15.90 - 38.40 pg/mLFT RemisolComment on above:Interpretive Data: The 95% CI (Confidence Interval) PPV (Positive Predictive Value) for myocardial infarction in females is 38 pg/mL, in males 51 pg/mL. The results should be used in conjunction withclinical conditions of myocardial infarction. (Access High Sensitivity Troponin I Instructions For Use, [place], March 2018)Lactate [Mass/Vol]1.7 mmol/LNormal0.5 - 2.2 mmol/LFC Remisol CHEMISTRYOrdered By: Sasha Arroyo on [id number] peptide B (Bld) [Mass/Vol]121 pg/mLHigh5 - 80 pg/mLIN[facility]IS [facility] [place] HemeManSSCOAGULATIONOrdered By: Liberty Quinn on [id number] Coag (PPP) [Time]33.9 gPkawsu51.1 - 36.5 second(s)[facility] [place] Auto CoagComment on above:Interpretive Data: Parameter 15 days - 4 weeks 1 - 5 months 6 - 11 months 1 - 5 years 6 - 10 years 11 - 17 years PTT Mean: 35.4 (27.6-45.6) Mean: 33.5 (24.8-40.7) Mean: 32.4 (25.1-40.7) Mean: 31.6 (24.0-39.2) Mean: 31.6 (26.9-38.7) Mean: 31.0 (24.6-38.4) Pediatric Reference ranges were obtained from a study by Isaiah Hallamn et al. prepared from 1437 samples obtained at 7 different centers using the same coagulation reagent and instrumentation as [facility]. Currently there are no coagulation studies available worldwide for children to 14 days, andno normal ranges. Heparin therapeutic range (represented by Anti-Factor Xa activity of 0.2 - 0.4 U/mL) corresponds to PTT of 56.6 - 109.0 sec.INR Coag (PPP) [Relative time]1.0 {INR}Invalid Interpretation CodeINTEGRIS [facility] [place] Auto CoagComment on above:Interpretive Data: INR results are specifically intended to assess patients stabilized on long-term Anticoagulation therapy suggested INR s Less Intensive Anticoagulation 2.0 3.0 Conventional Range 3.0 4.5PT Coag (PPP) [Time]11.2 sNormal9.4 - 12.5 second(s) [facility] Auto CoagComment on above:Interpretive Data: 15 days [...] the same coagulation reagent and instrumentation as [facility]. Currently there are no coagulation studies available worldwide for children to 14 days, andno normal ranges.FT Blood GasesOrdered By: Primo Tubbs on 06-11-2023/A Ratio Art37.10 %Normal>=0.80%[facility] Resp Auto SSAaDO2 Art98.0 mm[Hg]High5.0 - 15.0 mmHg [facility] Resp Auto SSAllens TestPositive (06/11/23 2:22 PM)NormalFT[facility] Resp Auto SSBase Excess Arterial5.1 mmol/LNormal >=2.8mmol/LFT[facility] Resp Auto SScCa2+ Art4.66 mg/dLNormal4.40 - 5.30 mg/dLFT[facility] Resp Auto SScCl- Pxh754.0 mmol/SUjbmtv348.0 - 111.0 mmol/LFT[facility] Resp Auto SScGlu Art57 mg/iNAnajpc44 - 99 mg/dLFT[facility] Resp Auto SScK+ Art4.7 mmol/LNormal3.5 - 5.3 mmol/LFT[facility] Resp Auto SScLac Art1.3 mmol/LNormal0.5 - 2.2 mmol/LFT[facility] Resp Auto SS ethylene compressor operator+ Smp849.0 mmol/BWjzymn323.0 - 145.0 mmol/LFT[facility] Resp Auto SSDeviceCannula (06/11/23 2:22 PM)NormalFT[facility] Resp Auto SSDrawn bySASInvalid Interpretation Code [facility] Resp Auto SSFCOHb Art2.2 %Normal1.5 - 4.9 %[facility] Resp Auto SSComment on above:Interpretive Data: Reference range Nonsmoker <1.5% Smoker <5.0% Heavy Smoker <9.0%FMetHb Art0.1 %Normal0.0 - 1.9 %[facility] Resp Auto JPNP8Ur Art88.7 %Low93.0 - 100.0 %[facility] Resp Auto SSHCO3 (Bld) [Moles/Vol]28.8 mmol/LHigh22.0 - 26.0 mmol/LFT[facility] Resp Auto SSHemoglobin (Bld) [Mass/Vol]14.5 g/vIBwjmnq62.0 - 17.0 gm/dLFT[facility] Resp Auto SSP CO2 Vwtupzzw42.5 mm[Hg]High35.0 - 45.0 mmHgFT[facility] Resp Auto SSP O2 Sytxkpgt72.8 mm[Hg]Low80.0 - 100.0 mmHgFT[facility] Resp Auto SSpH (Bld)7.348 [pH]Low7.350 - 7.450[facility] Resp Auto SSSample SiteL Radial (06/11/23 2:22 PM)NormalFT[facility] Resp Auto SSSample TypeArterial Draw (06/11/23 2:22 PM)NormalFT[facility] Resp Auto SSSodium [Moles/Vol]32 mmol/LInvalid Interpretation CodeFT[facility] Resp Auto SSHEMATOLOGYOrdered By: SYSTEM SYSTEM on 62-64-5603Ibebsbndp/100 WBC (Bld)1.1 %Normal0.0 - 2.0 %[facility] HemeAutoSS Basophils/Leukocytes Auto (Bld) [Pure # fraction]0.1 E9/LNormal0.0 - 0.2 E9/L [facility] HemeAutoSSEosinophils/100 WBC (Bld)3.4 %Normal0.0 - 8.0 %[facility] HemeAutoSS Eosinophils/Leukocytes Auto (Bld) [Pure # fraction]0.2 E9/LNormal0.0 - 0.5 E9/L [facility] HemeAutoSSLymphocytes/100 WBC (Bld)20.7 %Mucxhy73.0 - 50.0 %[facility] HemeAutoSS Lymphocytes/Leukocytes Auto (Bld) [Pure # fraction]1.5 E9/LNormal1.0 - 4.0 E9/L [facility] HemeAutoSSMonocytes/100 WBC (Bld)11.6 %Normal4.0 - 14.0 %[facility] HemeAutoSS Monocytes/Leukocytes Auto (Bld) [Pure # fraction]0.8 E9/LNormal0.2 - 1.0 E9/L [facility] HemeAutoSSNeutrophils/100 WBC (Bld)63.2 %Yzzlgu55.0 - 75.0 %[facility] HemeAutoSS Neutrophils/Leukocytes Auto (Bld) [Pure # fraction]4.5 E9/LNormal2.0 - 7.5 E9/L [facility] HemeAutoSSHEMATOLOGYOrdered By: Sasha Arroyo on 16-72-3636Uxlpmqpgojk distribution width (RBC) [Ratio]15.0 %High10.9 - 14.2 %[facility] HemeAutoSSHematocrit (Bld) [Volume fraction]45.4 %Cxemca54.7 - 49.0 %[facility] HemeAutoSSHemoglobin (Bld) [Mass/Vol]14.4 g/yCOoeuts34.5 - 17.5 gm/dLFTMC HemeAutoSSMCH (RBC) [Entitic mass]28.3 rdVdphpu32.0 - 34.0 pgFTMC HemeAutoSSMCHC (RBC) [Mass/Vol]31.8 g/dL Zhoyzw63.4 - 36.0 gm/dLFTMC HemeAutoSSMCV (RBC) [Entitic vol]88.9 tEEyugon81.0 - 100.0 fLFTMC HemeAutoSSPlatelet mean volume (Bld) [Entitic vol]7.2 fLNormal6.4 - 10.8 fLFTMC HemeAutoSSPlatelets (Bld) [#/Vol]233.0 E9/LTspggp152.0 - 500.0 E9/L [facility] HemeAutoSSRBC (Bld) [#/Vol]5.1 E12/LNormal4.3 - 5.9 E12/LFTMC HemeAutoSSWBC corrected for nucl RBC Auto (Bld) [#/Vol]7.1 E9/LNormal4.0 - 11.0 E9/LFTMC HemeAutoSSMICRO OTHER TESTSOrdered By: Liberty Quinn on 20-12-5237[place] COV Int NEG CtlPass (06/11/23 2:16 PM)NormalFT Man SeroRapid COV Int POS CtlPass (06/11/23 2:16 PM)NormalFT Man SeroSARS-CoV+SARS-CoV-2 (COVID-19) Ag IA.rapid Ql (Resp)Not Detected (06/11/23 2:16 PM)NormalNot DetectedINTEGRIS [facility]AMI [facility] [place] Man SeroComment on above:Interpretive Data: The BD [...] terminated or revoked sooner.No Panel InformationOrdered By: ANGPROCESSSERTSEHOOTSOOI [facility] MICROBIOLOGY on 21-93-5756Adkmo Culture CharcoalNo growth at 4 days. Final to follow at 7 days.[facility] HospitalBlood Culture CharcoalNo growth at 4 days. Final to follow at 7 days.[facility] HospitalCHEMISTRYOrdered By: Tatyana Long on 10-61-6414RxI7p (Bld) [Mass fraction]11.0 %High<=5.9%[facility] ChemAutoSSCHEMISTRYOrdered By: Lab ROPUser on 36-95-4520Xnswngp [Mass/Vol]mg/dL Invalid Interpretation Code55 - 99 mg/dLFTMC POC SubsectionComment on above: Result Comment: Notified RN/MDPOC Device [id number] Interpretation CodeFTMC POC SubsectionPOC User [id number] Interpretation CodeFTMC POC SubsectionPOC UsernamKathi Cutlervalid Interpretation CodeFTMC POC SubsectionCHEMISTRYOrdered By: SYSTEM SYSTEM on 72-46-6990Ruxklwwb I.cardiac [Mass/Vol]9.90 pg/mLLow15.90 - 38.40 pg/mLFTMC RemisolAnion gap [Moles/Vol]16 mmol/LNormal6 - 16 mEq/LFTMC RemisolCalcium [Mass/Vol]9.4 mg/dLNormal8.9 - 11.1 mg/dLFTMC RemisolChloride [Moles/Vol]89 mmol/HYkj377 - 111 mmol/LFTMC RemisolCO2 [Moles/Vol]24 mmol/JAlnmjm90 - 31 mmol/LFTMC RemisolCreatinine [Mass/Vol]1.7 mg/dLHigh0.5 - [...] [Moles/Vol]5.1 mmol/LNormal3.5 - 5.3 mmol/LFT[facility] RemisolSodium [Moles/Vol]124 mmol/OJdo090 - 145 mmol/LFTMC RemisolTSH Qn1.07 m[IU]/LNormal0.34 - 5.60 mcIU/mLFTMC RemisolUrea nitrogen [Mass/Vol]52 mg/dLHigh 5 - 21 mg/dLFTMC RemisolUrea nitrogen/Creatinine [Mass ratio]31 mg/nmYxll66 - 20 [facility] RemisolCHEMISTRYOrdered By: Reid Pastor on 98-73-1204Zimvudqi I.cardiac [Mass/Vol]9.10 pg/mLLow15.90 - 38.40 pg/mLFTMC RemisolHEMATOLOGYOrdered By: SYSTEM SYSTEM on 60-92-0524Kvsnzlpcy/100 WBC (Bld)1.0 %Normal0.0 - 2.0 %[facility] HemeAutoSSBasophils/Leukocytes Auto (Bld) [Pure # fraction]0.1 E9/LNormal0.0 - 0.2 E9/LFTMC HemeAutoSSEosinophils/100 WBC (Bld)2.6 %Normal0.0 - 8.0 %[facility] HemeAutoSSEosinophils/Leukocytes Auto (Bld) [Pure # fraction]0.2 E9/LNormal0.0 - 0.5 E9/LFTMC HemeAutoSSLymphocytes/100 WBC (Bld)18.2 %Obqupk37.0 - 50.0 %[facility] HemeAutoSSLymphocytes/Leukocytes Auto (Bld) [Pure # fraction]1.1 E9/LNormal1.0 - 4.0 E9/LFT[facility] HemeAutoSSMonocytes/100 WBC (Bld)8.1 %Normal4.0 - 14.0 %[facility] HemeAutoSSMonocytes/Leukocytes Auto (Bld) [Pure # fraction]0.5 E9/LNormal0.2 - 1.0 E9/LFT[facility] HemeAutoSSNeutrophils/100 WBC (Bld)70.1 %Lmobsw56.0 - 75.0 %[facility] HemeAutoSSNeutrophils/Leukocytes Auto (Bld) [Pure # fraction]4.2 E9/LNormal2.0 - 7.5 E9/LFTMC HemeAutoSSHEMATOLOGYOrdered By: Alban Moran on 08-04-2022 Erythrocyte distribution width (RBC) [Ratio]13.2 %Njsegg68.9 - 14.2 %[facility] HemeAutoSSHematocrit (Bld) [Volume fraction]47.6 %Nwoizz05.7 - 49.0 %[facility] HemeAutoSSHemoglobin (Bld) [Mass/Vol]15.9 g/jFPrlcbh60.5 - 17.5 gm/dLFTMC HemeAutoSSMCH (RBC) [Entitic mass]30.9 amFyrbss30.0 - 34.0 pgFTMC HemeAutoSSMCHC (RBC) [Mass/Vol]33.4 g/hZNlkjwd65.4 - 36.0 gm/dLFTMC HemeAutoSSMCV (RBC) [Entitic vol]92.5 mSMfuiwd60.0 - 100.0 fLFTMC HemeAutoSSPlatelet mean volume (Bld) [Entitic vol]8.2 fLNormal6.4 - 10.8 fLFTMC HemeAutoSSPlatelets (Bld) [#/Vol]193.0 E9/NPywirf386.0 - 500.0 E9/LFT[facility] HemeAutoSSRBC (Bld) [#/Vol]5.2 E12/LNormal4.3 - 5.9 E12/LFTMC HemeAutoSSWBC corrected for nucl RBC Auto (Bld) [#/Vol]6.0 E9/LNormal4.0 - 11.0 E9/LFT[facility] HemeAutoSSCHEMISTRYOrdered By: Lab CLAYTONUser on 68-55-5196Cmxdkyb [Mass/Vol]324 mg/fSHkod42 - 99 mg/dLFTMC POC SubsectionComment on above:Result Comment: Notified RN/MDPOC Device SN [id number] Interpretation CodeFTMC POC SubsectionPOC User [id number] Invalid Interpretation CodeFTMC POC SubsectionPOC UsernamHUDSON Mederos Invalid Interpretation CodeFT[facility] POC SubsectionCHEMISTRYOrdered By: Lab ROPUser on 92-51-3498Vhnmmek [Mass/Vol]395 mg/zPHmuu27 - 99 mg/dLFTMC POC Subsection Comment on above:Result Comment: Notified RN/MDPOC Device [id number] Interpretation CodeFT POC SubsectionPOC User [id number] Interpretation CodeFT POC SubsectionPO UsernameFRIPRIYANKA GARCIAInvalid Interpretation Code [facility] POC SubsectionCHEMISTRYOrdered By: SYSTEM SYSTEM on 21-30-5638Hdpsyzl [Mass/Vol]3.7 g/dLNormal3.3 - 5.0 gm/dLFTMC RemisolAlbumin/Globulin [Mass [...] [Mass/Vol]9.0 mg/dLNormal8.9 - 11.1 mg/dLFTMC RemisolChloride [Moles/Vol]96 mmol/NXdn070 - 111 mmol/LFTMC RemisolCO2 [Moles/Vol]25 mmol/L Qktkrk61 - 31 mmol/LFTMC RemisolCreatinine [Mass/Vol]1.5 mg/dLHigh0.5 - 1.3 mg/dLFTMC RemisolGFR/1.73 sq M.predicted among blacks MDRD (S/P/Bld) [Vol rate/Area]57 mL/min/1.73 m2Low>=59mL/min/1.73 m2FT Chem SGFR/1.73 sq M.predicted among non-blacks MDRD (S/P/Bld) [Vol rate/Area]47 mL/min/1.73 m2Low >=59mL/min/1.73 m2FT Chem SGlobulin (S) [Mass/Vol]3.4 g/dLNormal1.4 - 4.0 gm/dLFTMC RemisolGlucose [Mass/Vol]411 mg/xUQulx26 - 199 mg/dLFT[facility] Remisol Potassium [Moles/Vol]4.4 mmol/LNormal3.5 - 5.3 mmol/LFT[facility] RemisolProtein [Mass/Vol]7.1 g/dLNormal6.0 - 7.8 gm/dLFT[facility] RemisolSodium [Moles/Vol]131 mmol/L Obu609 - 145 mmol/LFTMC RemisolUrea nitrogen [Mass/Vol]37 mg/dLHigh5 - 21 mg/dL [facility] RemisolUrea nitrogen/Creatinine [Mass ratio]25 mg/vnOjzj39 - 20[facility] Remisol CHEMISTRYOrdered By: Reid Pastor on 81-62-0211Uuxx hydroxybutyrate [Moles/Vol] 0.12 mmol/LNormal0.02 - 0.27 mmol/LFTMC RemisolHEMATOLOGYOrdered By: SYSTEM SYSTEM on 48-26-7098Ehnrpvozi/100 WBC (Bld)0.7 %Normal0.0 - 2.0 %[facility] HemeAutoSS [...] - 1.0 E9/L [facility] HemeAutoSSNeutrophils/100 WBC (Bld)75.0 %Bxqwuo17.0 - 75.0 %[facility] HemeAutoSS Neutrophils/Leukocytes Auto (Bld) [Pure # fraction]3.7 E9/LNormal2.0 - 7.5 E9/L [facility] HemeAutoSSHEMATOLOGYOrdered By: Sandra Chris on 59-44-4931Ohdnovltkyn distribution width (RBC) [Ratio]13.4 %Ztphdq12.9 - 14.2 %[facility] HemeAutoSS Hematocrit (Bld) [Volume fraction]43.7 %Wzgsim51.7 - 49.0 %[facility] HemeAutoSS Hemoglobin (Bld) [Mass/Vol]14.9 g/gSXayhal89.5 - 17.5 gm/dLFTMC HemeAutoSSMCH (RBC) [Entitic mass]30.8 xnRemjjn07.0 - 34.0 pgFTMC HemeAutoSSMCHC (RBC) [Mass/Vol]34.1 g/zVGxmwoz17.4 - 36.0 gm/dLFTMC HemeAutoSSMCV (RBC) [Entitic vol] 90.2 tQEwvjmc88.0 - 100.0 fLFTMC HemeAutoSSPlatelet mean volume (Bld) [Entitic vol]7.8 fLNormal6.4 - 10.8 fLFTMC HemeAutoSSPlatelets (Bld) [#/Vol]186.0 E9/L Xsisdm503.0 - 500.0 E9/LFTMC HemeAutoSSRBC (Bld) [#/Vol]4.8 E12/LNormal4.3 - 5.9 E12/LFTMC HemeAutoSSWBC corrected for nucl RBC Auto (Bld) [#/Vol]4.9 E9/LNormal 4.0 - 11.0 E9/LFTMC HemeAutoSSMICRO OTHER TESTSOrdered By: Sandra Chris on 74-35-7285Mqskipsfqp A AgNegative (03/08/22 11:09 PM)NormalNegativeINTEGRIS [facility] [place] Man SeroInfluenzae B AgNegative (03/08/22 11:09 PM)NormalNegativeINTE[facility]IS [facility] [place] Man SeroRapid COV Int NEG CtlPass (03/08/22 11:09 PM)NormalFT Man SeroRapid COV Int POS CtlPass (03/08/22 11:09 PM)NormalINTEGRIS [facility] [place] Man SeroSARS-CoV+SARS-CoV-2 (COVID-19) Ag IA.rapid Ql (Resp)Detected 3 *ABN* (03/08/22 11:09 PM)Invalid Interpretation CodeNot DetectedFT Man SeroComment on above:Result Comment: Results Called To Evelia Moreno By SHIRA And Read Back For Confirmation On 03/08/2022 23:49:41 EDT Results Verified By Repeat AnalysisURINALYSISOrdered By: Reid Pastor on 10-68-9292Qljedyhci Ql (U)Negative (03/08/22 11:09 PM)NormalNegativeINTE[facility] [place] UA Auto SSClarity (U)Clear (03/08/22 11:09 PM)NormalClearFSOUTHWESTERN [facility] [place] UA Auto SSColor (U)Straw *ABN* (03/08/22 11:09 PM)Invalid Interpretation CodeYellowINTEGRIS [facility]AMI HOSPITAL [facility] [place] UA Auto SSEpithelial cells.squamous LM.HPF (Urine sed) [#/Area]0-2 /HPFNormal0-2/HPFINTEGRIS [facility]AMI [facility] [place] UA Auto SS Glucose Test strip (U) [Mass/Vol]Trace *ABN* (03/08/22 11:09 PM)Invalid Interpretation CodeNegativeINTEGRIS [facility] [place] UA Auto SSHemoglobin Ql (U)1+ *ABN* (03/08/22 11:09 PM)Invalid Interpretation CodeNegativeINTEGRIS [facility] [place] UA Auto SSKetones (U) [Mass/Vol]Negative (03/08/22 11:09 PM)NormalNegativeINTEGRIS [facility] [place] UA Auto SSLithium.plasma/[place].RBC (Bld) [Mass ratio]0-3 /HPFNormal0-3/HPFINTEGRIS [facility] [place] UA Auto SSNitrite Ql (U)Negative (03/08/22 11:09 PM)NormalNegativeINTEGRIS [facility] [place] [facility] Auto SSpH (U)6.0 *NA* (03/08/22 11:09 PM)Invalid Interpretation Code5.0 - 9.0[facility] UA Auto SSProtein (U) [Mass/Vol]2+ *ABN* (03/08/22 11:09 PM)Invalid Interpretation CodeNegativeINTEGRIS [facility] [place] UA Auto SSSpecific gravity (U) [Rel density]1.010 *NA* (03/08/22 11:09 PM)Invalid Interpretation Code1.005 - 1.030[facility] UA Auto SSUA Spec DescClean Catch (03/08/22 11:09 PM)NormalINTEGRIS [facility]I [facility]OSP[facility] [place] UA Auto SSUrobilinogen Qn (U)0.9882190 {Itz'U}/dLNormal0.0 - 1.0 EU/dLINTEGRIS [facility]OSP[facility] [place] UA Auto SSWBC Auto Ql (U)Negative (03/08/22 11:09 PM)NormalNegativeIN[facility] [place] UA Auto SSWBC LM.HPF (Urine sed) [#/Area]0- 5 /HPFNormal0-5/HPFINTEGRIS [facility] [place] UA Auto SS Vital Signs Date TimeVital SignValuePerforming QlhmfncfjFzkkanvh56-06-4822 13:20-0400Body .3 Naila Sweeney MD Work Phone: [phone] HospitalGcfbdwmvil94-53-0703 13:20-0400Body mass index (BMI) [Ratio]29.01 kg/s8JroprKayla Sweeney MD Work Phone: [phone] [place], [place] [address]Tbmntuvyfd06-90-1687 13:20-0400Body qwwriq59.35 kgKayla Sweeney MD Work Phone: [phone] [place], [place] [address]Xhckzzdahy73-39-3846 13:20-0400Diastolic blood jzrjfijv25 mm[Hg]Kayla Sweeney MD Work Phone: [phone] HospitalGeszedvlay91-73-2190 13:20-0400Heart rate72 /min Kayla Sweeney MD Work Phone: [place] [address]Tqqqfpfrix88-34-8911 13:20-0400Respiratory rate16 /minKayla Sweeney MD Work Phone: [place] [address]Paxumlywnl05-63-5082 13:20-9704FbF4% (BldA) [Mass fraction]98 %Kayla Sweeney MD Work Phone: [facility] HospitalRsdzbrzjlj43-10-2304 13:20-0400Systolic blood iahwgowe703 mm[Hg]Kayla Sweeney MD Work Phone: [facility] HospitalQlyifweofk36-11-7666 11:28-0400Body gmaamk847.3 cmMounika Brooke MD Work Phone: [facility] HospitalVczkkdacyt05-37-5281 11:28-0400Body mass index (BMI) [Ratio]36.79 kg/z9WpdlbMounika Brooke MD Work Phone: [facility] HospitalXjlpfopirr22-29-9313 11:28-0400Body temperature 97.2 [degF]Mounika Brooke MD Work Phone: [facility] HospitalFeceilnahm86-48-5021 11:28-0400Body ogmexq942.66 kgMounika Brooke MD Work Phone: [facility] HospitalBqteueubxd40-17-7665 11:28-0400Diastolic blood dhvyedci68 mm[Hg]Mounika Brooke MD Work Phone: [facility] HospitalAhaabqrvbx82-61-2972 11:28-0400Heart rate89 /min Mounika Brooke MD Work Phone: [facility] HospitalWqwapzbjqi21-82-4913 11:28-5300TaE0% (BldA) [Mass fraction]95 %Mounika Brooke MD Work Phone: [facility] HospitalXzfwzkhjex31-85-8047 11:28-0400Systolic blood lukwcdhy502 mm[Hg]Mounika Brooke MD Work Phone: [facility] HospitalVszytlmrbe21-95-6105 12:30-0400Body .3 Margarette Brooke MD Work Phone: [facility] HospitalGhfzihswgp23-65-5072 12:30-0400Body mass index (BMI) [Ratio]38.02 kg/x0JmnmsMounika Brooke MD Work Phone: [facility] HospitalTrljrlocaq61-27-4549 12:30-0400Body temperature 98.4 [degF]Mounika Brooke MD Work Phone: [facility] HospitalSsdesqphvz56-10-3659 12:30-0400Body .65 kgMounika Brooke MD Work Phone: [facility] HospitalZwrdrdfvhp63-42-6015 12:30-0400Diastolic blood kaaafikm55 mm[Hg]Mounika Brooke MD Work Phone: [facility] HospitalMnpsxeiwey51-39-9589 12:30-0400Heart rate80 /min Mounika Brooke MD Work Phone: [facility] HospitalEomgyjsnfd89-85-8476 12:30-0007OzV6% (BldA) [Mass fraction]92 %Mounika Brooke MD Work Phone: [facility] HospitalFfoltrflqz99-87-2229 12:30-0400Systolic blood goonnejk730 mm[Hg]Mounika Brooke MD Work Phone: [phone] [place], [place] [address]Lubjygvlem59-91-0782 12:28-0400Body qfvsak531.3 cmMounika Brooke MD Work Phone: [facility] HospitalQszrhspbke91-01-4534 12:28-0400Body mass index (BMI) [Ratio]36.43 kg/p2PqgvsMounika Brooke MD Work Phone: [facility] HospitalWwjveuorzy57-30-6499 12:28-0400Body temperature 98.71 [degF]Mounika Brooke MD Work Phone: [facility] HospitalMudmrdvscd45-04-0178 12:28-0400Body trfood822.48 kgMounika Brooke MD Work Phone: [facility] HospitalSznpbtjkaz19-37-2620 12:28-0400Diastolic blood gzoducdz37 mm[Hg]Mounika Brooke MD Work Phone: [facility] HospitalTseyoirpzu48-85-0349 12:28-0400Heart rate77 /min Mounika Brooke MD Work Phone: [facility] HospitalGijwtjltni23-72-6984 12:28-2432KhN5% (BldA) [Mass fraction]98 %Mounika Brooke MD Work Phone: [facility] HospitalNquwswhhep04-77-1375 12:28-0400Systolic blood muvmzxus049 mm[Hg]Mounika Brooke MD Work Phone: [facility] HospitalGafscsutzo61-11-3568 15:22-0400Hourly Rounding [facility]05-03-2025 15:22-0400[facility]LawrK[facility]-2025 14:32-0400 Hour[facility]ingLaw[facility]20[facility] 14:32-0400[facility]Law[facility] 12-21-2024 13:30-0400Hourly [facility]ingLaMer[facility]05-03-2025 13:30-0400Promise to ReturnLawrK[facility]05-03-2025 11:00-0400Blood Pressure [facility]LaKn[facility]05-[facility]-2025 11:00-0400Body yjbuqauqdfp90.88 [degF] [facility]05-03-2025 11:00-0400Diastolic blood mm[Hg][facility] 12-21-2024 11:00-0400Heart rate80 /minLawrKettering Health [facility]05-03-2025 11:00-0400Mean blood bxpyxhjo178 mm[Hg][facility]05-03-2025 11:00-0400Respiratory rate16 /min [facility]05-03-2025 11:00-8955ScS2% (BldA) [Mass fraction]96 %[facility] 12-21-2024 11:00-0400Systolic blood ojjutmrs061 mm[Hg][facility]05-03-2025 08:00-0400Diastolic blood pegpvipa19 mm[Hg] [facility]05-03-2025 08:00-0400Heart rate 76 /minLawrKettering Health [facility]05-03-2025 08:00-0400 Mean blood wegizpwt685 mm[Hg][facility] 12-21-2024 08:00-8681EmE0% (BldA) [Mass fraction]97 %[facility]05-03-2025 08:00-0400Systolic blood carqqszn202 mm[Hg] [facility]05-03-2025 04:00-0400Body osvqxjcnqlg00.7 [degF][facility] 12-21-2024 04:00-0400Diastolic blood jrzumfvs20 mm[Hg][facility]05-03-2025 04:00-0400Diastolic blood efeyalkj94 mm[Hg] [facility]05-03-2025 04:00-0400Heart rate 95 /minLaMercy Health [facility]05-03-2025 04:00-0400 Heart rate62 /minLaMercy Health St[facility]05-03-2025 04:00-0400Mean blood mm[Hg][facility]05-03-2025 04:00-0400Mean blood coirfpjw42 mm[Hg][facility]05-03-2025 04:00-0400Respiratory rate18 /min [facility]05-03-2025 04:00-1460UaJ4% (BldA) [Mass fraction]95 %[facility] 12-21-2024 04:00-0400Systolic blood ghlpyrwe91 mm[Hg][facility]05-03-2025 04:00-0400Systolic blood mm[Hg] [facility]05-03-2025 00:00-0400Heart rate 62 /minLawrKettering [facility]05-02-2025 19:37-0400 Heart rate67 /minLawrKettering Health [facility]05-02-2025 14:09-5893VsL0% (BldA) [Mass fraction]93.9 %[facility] Resp Auto LH91-67-9605 14:11-0400Body dhagcn703.3 cmMounika Brooke MD Work Phone: [facility] HospitalEcwqdsbqwb63-20-6772 14:11-0400Body mass index (BMI) [Ratio]35.7 kg/i6FareaMounika Brooke MD Work Phone: [facility] HospitalIfmlaqjfge38-59-0762 14:11-0400Body temperature 97.5 [degF]Mounika Brooke MD Work Phone: [facility] HospitalIxisuhaaci32-13-5529 14:11-0400Body zrkepg243.12 kgMounika Brooke MD Work Phone: [facility] HospitalKgbvbgajlc76-33-5124 14:11-0400Diastolic blood pkiaqpzm01 mm[Hg]Mounika Brooke MD Work Phone: [facility] HospitalJfrjlnkwng82-73-2632 14:11-0400Heart sila662 /min Mounika Brooke MD Work Phone: [place] [address]Yivgysjfez55-72-4179 14:11-7649PjW9% (BldA) [Mass fraction]97 %Mounika Brooke MD Work Phone: [place] [address]Twznvckzvc48-17-0008 14:11-0400Systolic blood tgszdmii800 mm[Hg]Mounika Brooke MD Work Phone: [place] [address]Flqlmhujgj08-48-4071 15:00-0400Heart rate74 /min Nicole [facility]04-14-2025 15:00-3978GrM1% (BldA) [Mass fraction]93 %Nicole [facility]04-14-2025 15:00-0400 Diastolic blood aupmchaf16 mm[Hg]Nicole Myers [address] [place], [place] 7410704-14-2025 15:00-0400Mean blood mm[Hg]Nicole Myers [address] [place], [place] 7410704-14-2025 15:00-0400 Respiratory rate18 /minNicole Myers [address] [place], [place] 7410704-14-2025 15:00-0400 Systolic blood mm[Hg]Nicole Myers [address] [place], [place] [address]10704-14-2025 14:00-9468BaP3% (BldA) [Mass fraction]97 %Nicole Myers [address] [place], [place] [address]704-14-2025 14:00-0400Heart rate78 /minNicole Myers [address] [place], [place] [address]10704-14-2025 14:00-0400 Diastolic blood ihfmqsuq88 mm[Hg]Nicole Myers [address] [place], [place] [address]704-14-2025 14:00-0400Mean blood tfvznfle929 mm[Hg]Nicole Myers [address] [place], [place] [address]704-14-2025 14:00-0400 Systolic blood lhemznxw828 mm[Hg]Nicole Myers [address] [place], [place] [address]704-14-2025 13:00-5340ZsA8% (BldA) [Mass fraction]96 %Nicole Myers [address] [place], [place] [address]704-14-2025 13:00-0400Heart rate73 /minNicole [facility]04-14-2025 13:00-0400 Diastolic blood nxrpabme17 mm[Hg]Nicole [facility]04-14-2025 13:00-0400Mean blood qqrcsega604 mm[Hg]Nicole Myers [address] [place], [place] 74[address]704-14-2025 13:00-0400 Systolic blood ectxbass778 mm[Hg]Nicole Myers [address] [place], [place] [address]704-14-2025 12:42-0400Body .8 [degF]Nicole Myers [address] [place], [place] 74[address]704-14-2025 12:42-0400Heart rate81 /Marvin Myers [address] [place], [place] [address]704-14-2025 12:42-0400 Respiratory rate20 /minNicole Myers [address] [place], [place] 7410701-15-2025 14:00-0500Body wpzynu829.3 Naila Sweeney MD Work Phone: [facility] HospitalUaiupgkzhk80-14-6124 14:00-0500Body mass index (BMI) [Ratio]39.05 kg/d1TidrtKayla Sweeney MD Work Phone: [facility] HospitalHdkgcamkfd82-22-2061 14:00-0500Body zukuwe450.01 kgKayla Sweeney MD Work Phone: [facility] HospitalMdmuccjgut85-79-2683 14:00-0500Diastolic blood atbuxqji28 mm[Hg]Kayla Sweeney MD Work Phone: [facility] HospitalDrufhqhnqs79-48-3947 14:00-0500Heart rate80 /min Kayla Sweeney MD Work Phone: [facility] HospitalTrrxzxvhwo89-85-4103 14:00-0500Respiratory rate18 /minAhmad Patel MD Work Phone: 1(445)[address]01-15-2025 14:00-0500Systolic blood znmqclei109 mm[Hg]Kayla Sweeney MD Work Phone: [phone] [place], [place] [address]Gofypkecky81-05-2535 14:27-0500Body .3 Naila Sweeney MD Work Phone: 1(228)[address] [place], [place] 2448311-25-2024 14:27-0500Body mass index (BMI) [Ratio]38.22 kg/k8DxyvqKayla Sweeney MD Work Phone: 1([phone])935[place] [address]-25-2024 14:27-0500Body uulksl283.29 kgKayla Sweeney MD Work Phone: 1(651)[address] [place], [place] 2448311-25-2024 14:27-0500Diastolic blood mm[Hg]Kayla Sweeney MD Work Phone: 1(476)[address] [place], [place] 2448311-25-2024 14:27-0500Heart rate81 /min Kayla Sweeney MD Work Phone: 1([phone])528[place] [address]-25-2024 14:27-0500Respiratory rate18 /minKayla Sweeney MD Work Phone: 1(650)482-[address] [place], [place] [address]Uwclffsupw85-34-7451 14:27-0500Systolic blood wmtanbdf427 mm[Hg]Kayla Sweeney MD Work Phone: 1([phone])[address]11-21-2024 13:50-0500Body .3 Margarette Brooke MD Work Phone: [place] [address]Gygrpboave92-88-2935 13:50-0500Body mass index (BMI) [Ratio]43.15 kg/j7YozpgMounika Brooke MD Work Phone: [facility] HospitalPudrbpadjt60-04-5534 13:50-0500Body temperature 97.81 [degF]Mounika Brooke MD Work Phone: [place] [address]Rqwbisaetn45-87-7265 13:50-0500Body .54 kgMounika Brooke MD Work Phone: [facility] HospitalKjukzwgdwy43-51-7930 13:50-0500Diastolic blood qnidkvkt17 mm[Hg]Mounika Brooke MD Work Phone: [facility] HospitalKrggzgsecf46-71-2118 13:50-0500Heart rate73 /min Mounika Brooke MD Work Phone: [facility] HospitalCnboeaaryu49-55-6627 13:50-1542HdK7% (BldA) [Mass fraction]92 %Mounika Brooke MD Work Phone: [phone] HospitalSyjsspvekk87-18-2730 13:50-0500Systolic blood thtmyfkm809 mm[Hg]Mounika Brooke MD Work Phone: [facility] HospitalBvnszlulyf20-15-0523 14:40-0500Body temperature 98.06 [degF]Nicole Myers [address] [place], [place] 7410711-19-2024 14:40-0500 Diastolic blood rfopwfem23 mm[Hg]Nicole Myers [address]11-19-2024 14:40-0500Heart rate73 /minNicole Myers [address] [place], [place] 7410711-19-2024 14:40-0500 Respiratory rate20 /minNicole Myers [address] [place], [place] 7410711-19-2024 14:40-0372ObH0% (BldA) [Mass fraction]96 %Nicole Myers [address] [place], [place] 7410711-19-2024 14:40-0500 Systolic blood ubctoqld612 mm[Hg]Nicole Myers [address] [place], [place] 7410711-13-2024 12:45-0500Body mass index (BMI) [Ratio]43.3 kg/z9JycktMounika Brooke MD Work Phone: [place] [address]Rfjrpsjcod17-02-9971 12:45-0500Body temperature 98.01 [degF]Mounika Brooke MD Work Phone: [facility] HospitalMdfhxwvvia69-80-9715 12:45-0500Body kg Mounika Brooke MD Work Phone: [facility] HospitalMgjeqnhahe66-40-1882 12:45-0500Heart rate84 /min Mounika Brooke MD Work Phone: [place] [address]Xgwpnjuzrc21-36-8908 12:45-2485OuZ9% (BldA) [Mass fraction]93 %Mounika Brooke MD Work Phone: [facility] HospitalJsmrifdzse63-17-2697 13:39-0500Body temperature 97.7 [degF][facility]11-03-2024 13:39-0500 Diastolic blood malskxnl45 mm[Hg][facility] 06-23-2024 13:39-0500Heart rate71 /min[facility]11-03-2024 13:39-0500Respiratory rate22 /min[facility]11-03-2024 13:39-2084EqW4% (BldA) [Mass fraction]92 %[facility]11-03-2024 13:39-0500Systolic blood pressure 182 mm[Hg][facility]11-01-2024 13:36-0400Body ayaycw959.8 cmJennifer ROWAN Work Phone: [facility] HospitalPjasrrcybr13-87-2236 13:36-0400Body mass index (BMI) [Ratio]41.78 kg/e9XmqinaeJennifer ROWAN Work Phone: [facility] HospitalUcqgntgdtp89-14-3004 13:36-0400Body temperature 98.1 [degF]Jennifer ROWAN Work Phone: [facility] HospitalKfxatfgpxo66-93-0259 13:36-0400Body kzmiqc215.09 kgJennifer Short PA Work Phone: [facility] HospitalIbdjikmwbz19-34-1187 13:36-0400Diastolic blood jofndkjx27 mm[Hg]Jennifer Short PA Work Phone: [facility] HospitalAsefbajmte05-47-2908 13:36-0400Heart rate71 /min Jennifer Short PA Work Phone: [facility] HospitalZasglpxfio75-98-5645 13:36-6572BjP1% (BldA) [Mass fraction]91 %Jennifer Short PA Work Phone: [place] [address]Lmmddymkpe44-74-8442 13:36-0400Systolic blood fvcunbvo299 mm[Hg]Jennifer Short PA Work Phone: [facility] HospitalBitugicvcu52-62-3745 14:19-0400Body wagzlq100.8 cmMounika Brooke MD Work Phone: [facility] HospitalJnnizjyjas25-23-9748 14:19-0400Body mass index (BMI) [Ratio]42.47 kg/g7NzdjjMounika Brooke MD Work Phone: [facility] HospitalWihangzgol62-29-7059 14:19-0400Body temperature 98.01 [degF]Mounika Brooke MD Work Phone: [facility] HospitalWcyupqmsul47-45-9479 14:19-0400Body .26 kgMounika Brooke MD Work Phone: [facility] HospitalXmecwhkzvo78-02-8471 14:19-0400Diastolic blood mm[Hg]Mounika Brooke MD Work Phone: [place] [address]Ssbinjefbj82-82-5542 14:19-0400Heart rate75 /min Mounika Brooke MD Work Phone: [facility] HospitalVlzsquvosi95-77-6567 14:19-4843TxP4% (BldA) [Mass fraction]88 %Mounika Brooke MD Work Phone: [facility] HospitalUqenhpipxv22-23-5278 14:19-0400Systolic blood nobwfvne919 mm[Hg]Mounika Brooke MD Work Phone: [facility] HospitalQlzkxfntni08-04-0071 14:31-0400Blood Pressure LocationAurora Orzech [facility]06-21-2024 14:31-0400Body scfgqvyzfir77.88 [degF]Gisselle Orzech [facility]06-21-2024 14:31-0400Diastolic blood llqxkohy86 mm[Hg]Gisselle Orzech [facility]06-21-2024 14:31-0400Heart rate72 /minAurora Orzech [facility]06-21-2024 14:31-0400Respiratory rate16 /minAurora Orzech [facility]06-21-2024 14:31-0400Systolic blood ioymicis260 mm[Hg]Gisselle Orzech [facility]05-27-2024 17:00-0400Diastolic blood goiehsfy82 mm[Hg]Nicole Myers [facility]05-27-2024 17:00-0400Heart rate77 /minJohn Jonathon [facility]05-27-2024 17:00-0400Mean blood oovwwsiz227 mm[Hg]Nicole Myers [facility]05-27-2024 17:00-0400 Respiratory rate15 /minJomichelle Jonathon [facility]05-27-2024 17:00-0400 Systolic blood kmqkdtby036 mm[Hg]Nicole Myers [facility]05-27-2024 16:24-0400 Diastolic blood gdowqymc10 mm[Hg]Nicole Myers [address] [place], [place] 7410705-27-2024 16:24-0400Heart rate69 /Marvin Myers [address] [place], [place] 7410705-27-2024 16:24-0400 Respiratory rate18 /minNicole Myers [address] [place], [place] 7410705-27-2024 16:24-5619WrQ8% (BldA) [Mass fraction]92 %Nicole Myers [address] [place], [place] 7410705-27-2024 16:24-0400 Systolic blood dwxpvaud500 mm[Hg]Nicole Myers [address]03-29-2024 12:30-0400 Diastolic blood mm[Hg]MD Mounika Brooke Work Phone: 1(413)[address]03-29-2024 12:30-0400 Systolic blood mmukntha708 mm[Hg]MD Mounika Brooke Work Phone: 1(205)[address]03-29-2024 12:12-0400 Heart rate82 /min Mounika Brooke Work Phone: 1(052)810-[address] [place], [place] 9805103-29-2024 12:12-0400 Respiratory rate20 /minMD Mounika Brooke Work Phone: 1(124)555-[address] [place], [place] 9805103-29-2024 11:26-0400 Body naghkdeqbuw91.6 [degF]MD Mounika Brooke Work Phone: 1(645)454-[address] [place], [place] 9805103-29-2024 11:26-0400 SaO2% (BldA) [Mass fraction]96 %MD Mounika Brooke Work Phone: 1(858)878-[address] [place], [place] 9805103-29-2024 09:15-0400 Inhaled oxygen flow rate4 L/minMD Mounika Brooke Work Phone: [facility]03-29-2024 04:17-0400 Body putxez844.2 kgMD Mounika Brooke Work Phone: [facility]03-29-2024 00:50-0400 Inhaled oxygen lkbdmbsnjvaos05 % Mounika Brooke Work Phone: 1(254)996-[address] [place], [place] 6875903-25-2024 15:19-0400 Body qlaekl493.34 cmMD Mounika Brooke Work Phone: [facility]03-23-2024 16:30-0400 Diastolic blood pzynrttg24 mm[Hg][facility] 11-11-2023 16:30-0400Heart rate63 /min[facility]03-23-2024 16:30-0400Mean blood mm[Hg][facility]03-23-2024 16:30-0400Respiratory rate18 /[facility]-20[facility] 16:30-3391IsX6% (BldA) [Mass fraction]96 %[facility]03-23-2024 16:30-0400Systolic blood mm[Hg][facility]03-23-2024 16:00-0400Diastolic blood cbrwtval63 mm[Hg][facility]03-23-2024 16:00-0400Heart rate64 /min[facility]03-23-2024 16:00-0400Mean blood imoebjul30 mm[Hg][facility]03-23-2024 16:00-0400Respiratory rate15 /[facility]03-23-2024 16:00-0400Systolic blood xipeiwwd611 mm[Hg][facility]03-23-2024 15:30-0400Diastolic blood eumkftbv07 mm[Hg][facility]03-23-2024 15:30-0400Heart rate62 /min[facility]03-23-2024 15:30-0400Mean blood wodernqp32 mm[Hg][facility]03-23-2024 15:30-0400Respiratory rate20 /min[facility]03-23-2024 15:30-1188JwW8% (BldA) [Mass fraction]95 %[facility]03-23-2024 15:30-0400Systolic blood pressure 141 mm[Hg][facility]03-23-2024 09:31-3080TBH785 1Ast[facility]03-23-2024 09:31-0400Respiratory rate20 /min[facility]03-23-2024 09:17-4734JmH3% (BldA) [Mass fraction]88.7 %[facility] Auto IX93-08-9366 09:15-0400Respiratory rate24 /min[facility] 11-11-2023 09:07-0400Respiratory rate24 /min[facility]03-23-2024 09:05-0400Body xysvpanptxa87.6 [degF][facility]03-23-2024 09:05-0400Heart rate77 /min[facility]03-23-2024 09:05-0400Heart rate76 /[facility]03-23-2024 08:05-0400Body pqwennszjdy10.6 [degF][facility]-2024 05:17-0400Body szknqvbqndo72.42 [degF]Staci Beck [address] [place], [place] 7410703-11-2024 05:17-0400 Diastolic blood cxbwuhjk80 mm[Hg]Staci Beck [address] [place], [place] 7410703-11-2024 05:17-0400Heart rate80 /Tanya Beck [address]03-11-2024 05:17-0400 Respiratory rate20 /Tanya Beck [address] [place], [place] 9524203-11-2024 05:17-6289JeX4% (BldA) [Mass fraction]94 %Staci Beck [address] [place], [place] 7410703-11-2024 05:17-0400 Systolic blood amrjvhsf313 mm[Hg]Staci Beck [address] [place], [place] 7410703-05-2024 23:08-1760TxY1% (BldA) [Mass fraction]93 %[facility] HospitalComment on above:Order Comment: Specimen Type: BLOOD SPECIMEN Ordering Facility: [facility] Address: [address] [place], [place] [address]Performed By: #### [id number], [id number] #### [facility] [place] [id number] [address] [place], [place] 4882103-05-2024 18:39-6613IqN4% (BldA) [Mass fraction]96 %[facility] HospitalComment on above:Order Comment: Specimen Type: BLOOD SPECIMEN Ordering Facility: [facility] Address: [address] [place], [place] [address]Performed By: #### PTTAC #### [facility] CLIA [id number] [address] [place] [address] LGOYKES07-10-3725 06:20-1303ZoH8% (BldA) [Mass fraction]98 %Mone Martinez [address] [place], [place] 7410702-25-2024 06:12-0500Body zlodhtzugoc61.06 [degF]Mone Martinez [address]02-25-2024 06:12-0500 Diastolic blood dllgytah40 mm[Hg]Mone Martinez [address] [place], [place] 7410702-25-2024 06:12-0500Heart rate77 /minMone Martinez [address] [place], [place] 7410702-25-2024 06:12-0500 Respiratory rate20 /minMone Martinez [address] [place], [place] 7410702-25-2024 06:12-0745XfB6% (BldA) [Mass fraction]98 %Mone Martinez [address] [place], [place] 7410702-25-2024 06:12-0500 Systolic blood jehywkxh886 mm[Hg]Mone Martinez [address] [place], [place] 7410702-22-2024 11:38-0500Body vkcbkntqlil96 [degF]MD Mounika Brooke Work Phone: [facility]02-22-2024 11:38-0500 Diastolic blood xsvavbap52 mm[Hg]MD Mounika Brooke Work Phone: [facility]02-22-2024 11:38-0500 Heart rate74 /minMD Mounika Brooke Work Phone: [facility]02-22-2024 11:38-0500 Inhaled oxygen flow rate4 L/minMD Mounika Brooke Work Phone: [facility]02-22-2024 11:38-0500 Respiratory rate18 /minMD Mounika Brooke Work Phone: 1(419)668-[address] [place], [place] 9805102-22-2024 11:38-0500 SaO2% (BldA) [Mass fraction]97 %MD Mounika Brooke Work Phone: 1(490)[address]02-22-2024 11:38-0500 Systolic blood kifdrelb092 mm[Hg]MD Mounika Brooke Work Phone: 1(735)[address]02-22-2024 05:08-0500 Body .6 kgMD Mounika Mendy Work Phone: 1(045)[address]02-22-2024 00:00-0500 Inhaled oxygen concentration4 %MD Mounika Brooke Work Phone: 1(041)[address] [place], [place] 9902702-19-2024 14:10-0500 Body loohkz872.88 cmMD Mounika Logangles Work Phone: 1(209)[address] [place], [place] 9902702-16-2024 23:47-0500 Body tprpuwfdpii51.4 [degF]MD Mounika Brooke Work Phone: 1(681)[address]02-16-2024 23:47-0500 Diastolic blood wsomktbl27 mm[Hg]MD Mounika Brooke Work Phone: 1(465)[address]02-16-2024 23:47-0500 Heart rate80 /minMD Mounika Brooke Work Phone: 1(506)[address]02-16-2024 23:47-0500 Inhaled oxygen flow rate6 L/min Mounika Logangles Work Phone: 1(768)[address]02-16-2024 23:47-0500 Respiratory rate20 /minMD Mounika Logangles Work Phone: 1(511)[address]02-16-2024 23:47-0500 SaO2% (BldA) [Mass fraction]94 %MD Mounika Brooke Work Phone: 1(878)[address]02-16-2024 23:47-0500 Systolic blood mzorcgfs893 mm[Hg]MD Deanjojo Brooke Work Phone: [facility]02-16-2024 20:13-0500 Body atfkkh611.88 cmMD Mounika Brooke Work Phone: [facility]02-16-2024 20:13-0500 Body oekodb298.98 kgMD Mounika Brooke Work Phone: [facility]02-04-2024 20:07-0500 Body hqdlcoqxhmj70.52 [degF]Jose Miguel Sylvester [address]02-04-2024 20:07-0500 Diastolic blood pdoyhzty39 mm[Hg]Jose Miguel Sylvester [address] [place], [place] 7410702-04-2024 20:07-0500Heart rate80 /minNoah Sylvester [address]02-04-2024 20:07-0500 Respiratory rate18 /minNoah Sylvester [address] [place], [place] 9524202-04-2024 20:07-6245SlS4% (BldA) [Mass fraction]93 %Jose Miguel Sylvester [address] [place], [place] 7410702-04-2024 20:07-0500 Systolic blood mm[Hg]Jose Miguel Sylvester [address] [place], [place] 7410701-28-2024 15:00-0500 Diastolic blood arpaanwz85 mm[Hg][facility] 09-17-2023 15:00-0500Heart rate80 /min[facility]01-28-2024 15:00-0500Mean blood zemeofaw52 mm[Hg][facility]01-28-2024 15:00-0500Respiratory rate18 /minAstrit [facility]01-28-2024 15:00-2008MyG8% (BldA) [Mass fraction]93 %[facility]01-28-2024 15:00-0500Systolic blood xqbgujst185 mm[Hg][facility]01-28-2024 14:23-0500Body odvgycrlvaw34.24 [degF][facility]01-28-2024 14:23-0500Diastolic blood xbhokgbm94 mm[Hg][facility]01-28-2024 14:23-0500Heart rate79 /[facility]01-28-2024 14:23-0500Respiratory rate20 /min[facility]01-28-2024 14:23-3005LpL7% (BldA) [Mass fraction]92 %[facility]01-28-2024 14:23-0500 Systolic blood mm[Hg][facility] 08-06-2023 13:13-0500Body nbkdzywbsnz49.88 [degF][facility]12-17-2023 13:13-0500Diastolic blood ehiwzsvm31 mm[Hg][facility]12-17-2023 13:13-0500Heart rate91 /minOhio[facility] Hospital12-17-2023 13:13-0500Respiratory rate20 /min[facility]12-17-2023 13:13-2400TbT7% (BldA) [Mass fraction]93 %[facility]12-17-2023 13:13-0500Systolic blood deyqgtyc958 mm[Hg][facility]11-01-2023 13:55-0400Diastolic blood lowddgcn42 mm[Hg]DO Art Kirby [facility]11-01-2023 13:55-0400Inhaled oxygen flow rate4 L/minDO Art [facility]11-01-2023 13:55-0400 SaO2% (BldA) [Mass fraction]94 %DO [facility]11-01-2023 13:55-0400Systolic blood pfeweofk791 mm[Hg]DO [facility]11-01-2023 13:52-0400Body dbfrussmhje19.3 [degF]DO [facility]11-01-2023 13:52-0400 Heart rate72 /LynneO [facility]11-01-2023 13:52-0400Respiratory rate20 /LynneO [facility]11-01-2023 06:00-0400Body cbrapx884.4 kgDO [facility]10-30-2023 15:26-0400Body uymurn951.88 cmDO [facility]10-30-2023 02:16-0400Diastolic blood sepfsqsm74 mm[Hg]DO Reid Mendy Work Phone: 1(390)[address]10-30-2023 02:16-0400 Heart rate77 /minDO Reid Mendy Work Phone: 1(081)[address]10-30-2023 02:16-0400 Inhaled oxygen flow rate6 L/minDO Reid Mendy Work Phone: 1(120)5-[address] [place], [place] 6092410-30-2023 02:16-0400 Respiratory rate20 /minDO Reid Mendy Work Phone: 1(731)0-[address] [place], [place] 6092410-30-2023 02:16-0400 SaO2% (BldA) [Mass fraction]91 %DO Reid Mendy Work Phone: 1(837)481-[address] [place], [place] 6092410-30-2023 02:16-0400 Systolic blood haqmsoqx224 mm[Hg]DO Reid Mendy Work Phone: [facility]10-29-2023 21:43-0400 Body keolnc729.88 cmDO Reid Mendy Work Phone: [facility]10-29-2023 21:43-0400 Body .5 [degF]DO Reid Logangles Work Phone: [facility]10-29-2023 21:43-0400 Body bwerfy035.61 kgDO Reid Mendy Work Phone: [facility]10-26-2023 17:22-0400 [facility]10-26-2023 17:22-0400 [facility]Ohio [facility]10-26-2023 16:25-0400 [facility]10-26-2023 16:25-0400 [facility]10-26-2023 16:20-0400 Heart rate84 /[facility]10-26-2023 16:20-0400 Respiratory rate20 /[facility]10-26-2023 16:07-0400Heart rate80 /[facility]10-26-2023 16:07-0400Respiratory rate20 /[facility] 06-15-2023 16:07-2010IsC8% (BldA) [Mass fraction]93 %[facility]10-26-2023 16:00-0400Body .42 [degF][facility]10-26-2023 16:00-0400Diastolic blood yfpuiazs89 mm[Hg][facility]10-26-2023 16:00-0400Heart rate88 /[facility]10-26-2023 16:00-0400Systolic blood tgvfeziy735 mm[Hg][facility]10-26-2023 15:25-0400Hour[facility]ingOhio [facility] System10-26-2023 15:25-0400[facility]Ohio [facility]10-26-2023 12:02-0400Heart rate83 /minOhio [facility] System10-26-2023 12:02-0400Respiratory rate20 /min[facility] 06-15-2023 12:02-7749TyB0% (BldA) [Mass fraction]92 %[facility]10-26-2023 11:54-6368LvS3% (BldA) [Mass fraction]92 %[facility]10-26-2023 10:15-0400Diastolic blood hrbdclzi13 mm[Hg][facility]10-26-2023 10:15-0400Mean blood mm[Hg][facility]10-26-2023 10:15-0400 Systolic blood mkztmlpa129 mm[Hg][facility] 06-15-2023 10:15-0400Body lrbtusglcuv73.06 [degF][facility]10-26-2023 08:30-6647izop325 mg/dLOhio State Health System10-26-2023 07:35-0400Diastolic blood qukntmkt33 mm[Hg][facility]10-26-2023 07:35-0400Mean blood oyqfkuvm980 mm[Hg] [facility]10-26-2023 07:35-0400Systolic blood fnfrqpdy128 mm[Hg][facility]10-26-2023 07:33-0400 Body wlcnsvqhnan85.06 [degF][facility]10-26-2023 00:39-0400Blood Pressure LocationOhio [facility] System 06-14-2023 20:00-0400Body jewyvfskhdl75.42 [degF][facility]10-25-2023 16:12-0400Blood Pressure LocationOhio [facility] Health System10-25-2023 16:12-0400Body qhgheglvaeb76.7 [degF][facility]10-25-2023 16:12-0400Mean blood mipxsmfk809 mm[Hg] [facility]10-25-2023 08:20-0400Mean blood kvqagoim545 mm[Hg][facility]10-25-2023 08:19-0400 Body avrnovnecun10.06 [degF][facility]10-25-2023 05:50-7922NGN402 %[facility]10-25-2023 00:50-0400 Mean blood inlikqvz794 mm[Hg][facility]10-24-2023 23:55-6935WTA846 %[facility]10-24-2023 20:00-0110nacp313 mg/dLOhio State Health System10-24-2023 11:54-5534XXX989 %[facility]10-24-2023 08:00-0400 Blood Pressure LocationOhio State Health System10-24-2023 08:00-0400Mean blood qhevyoko786 mm[Hg][facility] 06-12-2023 16:38-4390ghbo708 mg/dLOhio State Health System 06-11-2023 21:00-0400Heart rate73 /[facility] 06-11-2023 20:25-0400Heart rate75 /[facility] 06-11-2023 19:30-0400Respiratory rate16 /[facility]10-22-2023 18:30-0400Respiratory rate14 /[facility]10-22-2023 14:22-3909UxR2% (BldA) [Mass fraction]90.8 %[facility] Resp Auto [id number] 13:29-0400Blood Pressure LocationJekeily STROUD [id number]-Qemzn[address] [place] [address] 05-22-2023 13:29-0400Diastolic blood ertssqmt72 mm[Hg]Migue STROUD 631-0521Fdzxpb-Tgnyz[address] [place] [address] 05-22-2023 13:29-0400Heart rate74 /Yanet STROUD 662-6116Dlrnyi-Qdujt[address] [place] [address] 05-22-2023 13:29-1357YxX5% (BldA) [Mass fraction]87 %Migue STROUD 176-2870Ufixvo-Jqugd[address] [place] [address] 05-22-2023 13:29-0400Systolic blood qardnqgh743 mm[Hg]Migue STROUD 825-2204Umlmfp-Chhwb[address] [place] [address] 05-08-2023 10:30-0400Diastolic blood tivdxvhg11 mm[Hg][facility]09-18-2023 10:30-0400Mean blood refdqnsw787 mm[Hg][facility]09-18-2023 10:30-0400 Systolic blood heqgqizk003 mm[Hg]Mary [facility]09-18-2023 10:01-0400Blood Pressure LocationBarubina Mendez [facility]09-18-2023 10:01-0400 Diastolic blood jgzkouzb08 mm[Hg]Mary [facility]09-18-2023 10:01-0400Heart rate68 /minMary Mendez [facility]09-18-2023 10:01-8470ZsD8% (BldA) [Mass fraction]88 %[facility]09-18-2023 10:01-0400 Systolic blood tomunmvi110 mm[Hg][facility]04-14-2023 11:12-0400 Diastolic blood tsejqrfb01 mm[Hg]Migue STROUD 701-8977Gukevh-Amcjj[address] [place] [address] 12-02-2022 11:12-0400Mean blood zkoxykgi264 mm[Hg]Migue STROUD 519-9166Teulwb-Cottm[address] [place] [address] 12-02-2022 11:12-0400Systolic blood tkqseqzl962 mm[Hg]Migue STROUD 032-6395Wkuhju-Qcypg[address] [place] [address] 12-02-2022 10:55-0400Blood Pressure LocationJejankicora STROUD 361-0522Lhksjd-Dpwil[address] [place] [address] 12-02-2022 10:55-0400Diastolic blood gsjdxydg95 mm[Hg]Migue MARLI 858-2113Dawnoz-Gqcty[address] [place] [address] 12-02-2022 10:55-0400Heart rate74 /minSarthakjankicora STROUD 174-8242Jyeszp-Fukjt[address] [place] [address] 12-02-2022 10:55-0030HqK6% (BldA) [Mass fraction]92 %Miguecora STROUD 521-8198Wesfky-Zxcbn[address] [place] [address] 12-02-2022 10:55-0400Systolic blood eglzdmbp808 mm[Hg]Migue STROUD [id number]-Ktmeq[address] [place] [address] 09-13-2022 13:21-0500Diastolic blood xioxeqco71 mm[Hg]Migue STROUD [id number]-Tdatz[address] [place] [address] 09-13-2022 13:21-0500Mean blood ktpxiuqc994 mm[Hg]Migue STROUD [id number]-Hxawv[address] [place] [address] 09-13-2022 13:21-0500Systolic blood xubdgmmx091 mm[Hg]Migeu STROUD [id number]-Uzlyy[address] [place] [address] 09-13-2022 13:16-0500Blood Pressure LocationSarthakkeily STROUD [id number]-Anyig[address] [place] [address] 09-13-2022 13:16-0500Body yfwxhosixlh42.7 [degF]Migue STROUD [id number]-Qaaph[address] [place] [address] 09-13-2022 13:16-0500Diastolic blood exrbwnos51 mm[Hg]Migue STROUD 573-3815Zzaxnc-Uqpfb[address] [place] [address] 09-13-2022 13:16-0500Heart rate78 /minMigue STROUD [id number]-Zzzmg[address] [place] [address] 09-13-2022 13:16-0845FqN2% (BldA) [Mass fraction]96 %Migue STROUD [id number]-Ncmjo[address] [place] [address] 09-13-2022 13:16-0500Systolic blood lgpdovoj528 mm[Hg]Migue STROUD [id number]-Zyjlp[address] [place] [address] 08-04-2022 17:12-0500Diastolic blood kqnavypo69 mm[Hg]Mone Martinez [address] [place], [place] 7410712-15-2022 17:12-0500Heart rate76 /minMone Martinez [address] [place], [place] 7410712-15-2022 17:12-0500Mean blood gkwqadoc026 mm[Hg]Mone Martinez [address]12-15-2022 17:12-0500 Respiratory rate18 /minMone Martinez [address] [place], [place] 9524212-15-2022 17:12-0875EdC4% (BldA) [Mass fraction]100 %Mone Martinez [address] [place], [place] 9524212-15-2022 17:12-0500 Systolic blood njuxjmos314 mm[Hg]Mone Martinez [address]12-15-2022 16:30-0500 Diastolic blood srfxttob92 mm[Hg]Mone Martinez [address]12-15-2022 16:30-0500Heart rate74 /minMone Martinez [address] [place], [place] 7410712-15-2022 16:30-0500Mean blood ydjflcgs268 mm[Hg]Mone Martinez [address] [place], [place] 7410712-15-2022 16:30-0500 Respiratory rate16 /minMone Martinez [address] [place], [place] 9524212-15-2022 16:30-0142NmJ6% (BldA) [Mass fraction]97 %Mone Martinez [address] [place], [place] 7410712-15-2022 16:30-0500 Systolic blood zppfplsi322 mm[Hg]Mone Martinez [address] [place], [place] 9524212-15-2022 15:35-0500 Diastolic blood mm[Hg]Mone Martinez [address] [place], [place] 7410712-15-2022 15:35-0500Heart rate73 /sammyMone Martinez [address] [place], [place] 7410712-15-2022 15:35-0500 Respiratory rate16 /minMone Martinez [address] [place], [place] 7410712-15-2022 15:35-5383TqD8% (BldA) [Mass fraction]97 %Mone Martinez [address] [place], [place] 7410712-15-2022 15:35-0500 Systolic blood skafafpi621 mm[Hg]Mone Martinez [address] [place], [place] 7410712-15-2022 13:08-0500Body thbchxilblp97.88 [degF]Mone Martinez [address] [place], [place] 7410712-15-2022 13:08-0500Heart rate80 /Jorden Martinez [address] [place], [place] 7410708-09-2022 13:04-0400Blood Pressure LocationMigue STROUD 722-0379Qwqnii-ZpfdsChildren'[facility] 08-09-2022 13:04-0400Body gcaoptgzbhy21.98 [degF] Migue STROUD 509-0599Xisweb-OfzusChildren'S Hospital For Rehabilitation 08-09-2022 13:04-0400Diastolic blood fovopjld13 mm[Hg] Migue STROUD 298-8453Qxyfku-QrjwsChildren'S Hospital For Rehabilitation 08-09-2022 13:04-0400Heart rate72 /Yanet STROUD 659-7694Ynazoe-KsikjChildren'S Hospital For Rehabilitation 08-09-2022 13:04-6554SrA6% (BldA) [Mass fraction]95 % Migue STROUD 633-8786Zynsgj-LfjqcChildren'S Hospital For Rehabilitation 08-09-2022 13:04-0400Systolic blood zmenfhpu411 mm[Hg] Migue STROUD 047-2793Pkokrn-KdpwtChildren'S Hospital For Rehabilitation 07-20-2022 00:59-0400Body siifdyudnit07.6 [degF]Jose Miguel Sylvester [address] [place], [place] 7410707-19-2022 23:56-0400Body hhrustxuwue226.58 [degF]Jose Miguel Sylvester [address] [place], [place] 7410707-19-2022 23:56-0400 Diastolic blood nernqpfq05 mm[Hg]Jose Miguel [facility]vester [facility]07-19-2022 23:56-0400Heart rate95 /minNoah Sylvester [address] [place], [place] 7410707-19-2022 23:56-0400Mean blood mm[Hg]Jose Miguel Sylvester [facility]07-19-2022 23:56-8033UoV3% (BldA) [Mass fraction]90 %Jose Miguel Sylvester [facility]07-19-2022 23:56-0400 Systolic blood xohopjng774 mm[Hg]Jose Miguel Sylvester [address] [place], [place] 7410707-19-2022 22:56-0400Body icemarddkwa14.7 [degF]Jose Miguel Sylvester [address] [place], [place] 7410707-19-2022 22:56-0400 Diastolic blood hszxfybe39 mm[Hg]Jose Miguel Sylvester [facility]07-19-2022 22:56-0400Heart rate92 /minJose Miguel Phan [facility]07-19-2022 22:56-0400 Respiratory rate15 /minJose Miguel Tomlinner [facility]07-19-2022 22:56-7375LrP2% (BldA) [Mass fraction]94 %Jose Miguel Sylvester [facility]07-19-2022 22:56-0400 Systolic blood vzsqckeq973 mm[Hg]Jose Miguel Phan [facility]05-24-2022 12:33-0400Blood Pressure LocationMigue STROUD 854-6779Bcllyh-VhnnoChildren'S Hospital For Rehabilitation 05-24-2022 12:33-0400Body xvwnpovacar03.06 [degF] Migue STROUD 650-7787Jabzfz-YzmziChildren'S Hospital For Rehabilitation 05-24-2022 12:33-0400Diastolic blood mm[Hg] Migue STROUD 755-6898Aicwsm-LsrvdChildren'S Hospital For Rehabilitation 05-24-2022 12:33-0400Heart rate72 /minMigue STROUD 720-6619Dkcgde-CxzswChildren'S Hospital For Rehabilitation 05-24-2022 12:33-5302FxF1% (BldA) [Mass fraction]96 % Migue STROUD 262-8554Nceuax-OnyclChildren'S Hospital For Rehabilitation 05-24-2022 12:33-0400Systolic blood ojxndooy701 mm[Hg] Migue STROUD 435-1725Byyyqb-EjhuaChildren'S Hospital For Rehabilitation Encounters Encounter DateEncounter TypeCare ProviderFacilityStart: 31-00-0871kvnkzywlcj PETER [facility] Hospitalcility:FTMCStart: 06-05-2025 End: 62-34-9377Llljks Lizeth Sweeney MD Work Phone: noms [facility] EndocrinologyStart: 06-05-2025 End: 02-12-4301Euxoek Lizeth Sweeney MD Work Phone: noms [facility] EndocrinologyStart: 06-05-2025 End: 17-42-4269Rbgsfc outpatient visit 25 minutesKayla Sweeney MD Work Phone: noms Oliverio EndocrinologyComment on above:Type 2 diabetes mellitus with hyperglycemia, with long-term current use of insulin (HCC) (Primary Dx); Insulin long-term use (HCC); Vitamin D deficiency; Encounter for dietary consultation; Hyperlipemia, mixed; Primary hypertensionStart: 06-05-2025 End: 16-01-6186rtgmbmfyznGVRRWSebastián Ding AvailableStart: 06-04-2025 End: 43-90-3952wlsrobrsfeNEHYH D [facility] Hospitalcility:FTMCStart: 06-02-2025 End: 47-59-0351Pjlgzmsruthi Meeks MD Work Phone: noms [facility] EyeStart: 06-02-2025 End: 14-83-0897Ffuybasruthi Meeks MD Work Phone: noms [facility] EyeStart: 06-02-2025 End: 19-13-9878lqkfhfdanvUTNSO M ALLENNot AvailableStart: 04-29-2025 End: 03-98-7964Mlzwqrsruthi Brooke MD Work Phone: noms [facility] MedicineStart: 04-29-2025 End: 38-01-6318Wwsyhvjeet Brooke MD Work Phone: noms [facility] Hospitaltart: 04-29-2025 End: 23-59-0120Avdhlm outpatient visit 25 minutesMounika Brooke MD Work Phone: noms [facility] SoutheastComment on above:Grief (Primary Dx); Anxiousness; Neck pain; Type 2 diabetes mellitus with hyperglycemia, with long-term current use of insulin (HCC); Essential (primary) hypertension ; Morbid obesity ([facility]-HCC); BMI 36.0-36.9,adultStart: 04-29-2025 End: 97-64-8314pxpamgbpdkHZFXDCarlton Ramos AvailableStart: 03-24-2025 End: 59-65-0890Qdofgqvyv encounterMounika Brooke MD Work Phone: noms [facility] SoutheastComment on above:Care CoordinationStart: 03-13-2025 End: 31-94-0282Yoeyikjeet Brooke MD Work Phone: noms NE FMStart: 03-13-2025 End: 62-34-6026Mvwlnajeet Brooke MD Work Phone: noms NE FMStart: 03-13-2025 End: 09-97-8195Wzukiejnwasp care manage srvc 7 day dischargeMounika Brooke MD Work Phone: noms NE FMComment on above:Hospital discharge follow- up (Primary Dx); Type 2 diabetes mellitus with hyperglycemia, with long-term current use of insulin (HCC); Hyperosmolar hyperglycemic state (HHS) (HCC); Muscle cramps; Long-term insulin use (HCC); Difficulty walking; Essential (primary) hypertension ; Morbid obesity (CMS-HCC); BMI 38.0-38.9,adultStart: 03-13-2025 End: 11-68-2511cxayvikwxbNJAPLCarlton Ramos AvailableStart: 03-05-2025 End: 58-95-7469Ivfrdhqbsh and management of [facility] care servicesJigna Garciashreyasbrianne Facility:FTMCStart: 94-15-4100Lvdjvuvhv department patient visitMoraj Steiner Facility:FTMCStart: 02-05-2025 End: 00-87-5829Vknturmeh encounterAggie Langley NE FMComment on above:Care CoordinationStart: 02-05-2025 End: 71-61-1020eyvngdydqcXUYDXCarlton Ramos AvailableStart: 02-05-2025 End: 60-74-7797Soufzf outpatient visit 25 minutesMounika Brooke MD Work Phone: NOUR NE FMComment on above:Chronic hypoxemic respiratory failure (HCC) (Primary Dx); Leg weakness, bilateral; Essential (primary) hypertension ; Difficulty walking; Type 2 diabetes mellitus with hyperglycemia, with long-term current use of insulin (HCC); Long-term insulin use (HCC); Morbid obesity (CMS-HCC); BMI 36.0-36.9,adultStart: 01-22-2025 End: 69-41-5232KrsbtpLhahvci Jeet JI NE FMComment on above:Anxiousness (Primary Dx)Start: 12-26-2024 End: 71-95-5343kwtwirlrjoPtgjfst F. OsmanFacility:FTMCStart: 12-26-2024 End: 08-36-3948Dvoryv outpatient visit 15 minutesMounika Brooke MD Work Phone: noms NE FMComment on above:Muscle cramps (Primary Dx); Varicose veins of both lower extremities, unspecified whether complicated; Type 2 diabetes mellitus with hyperglycemia, with long-term current use of insulin (CMS/HCC); Essential (primary) hypertension (CMS/HCC)Start: 12-25-2024 End: 48-13-1210Hdrdzh outpatient visit 25 minutesKayla Sweeney MD Work Phone: noms ENDOCRINOLOGYComment on above:Type 2 diabetes mellitus with hyperglycemia, with long-term current use of insulin (CMS/HCC) (Primary Dx); Insulin long-term use (CMS/HCC); Vitamin D deficiency; Encounter for dietary consultation; Hyperlipemia, mixed (CMS/HCC); Primary hypertension (CMS/HCC)Start: 12-24-2024 End: 91-63-6118Egaxab flowsJeramie Sweeney MD Work Phone: noms ENDOCRINOLOGYStart: 12-24-2024 End: 48-39-6891Hicuwo Lizeth Sweeney MD Work Phone: noms ENDOCRINOLOGYStart: 12-22-2024 End: 11-82-0209Sihtpbwzu department patient visitCalinjuilan Lugo VivienziFacility:[facility] Centertart: 12-20-2024 End: 79-29-7701yxncazqlueEtbcneod J. Andw[facility]sworth-[facility]itt[facility] hospitalFacility:FTMCStart: 12-20-2024 Emergency department patient visitJomichelle ParenteFacility:FTMCStart: 12-20-2024 End: 33-31-6593EpwmselukhsUkbqtfkx [facility] Start: 12-19-2024 End: 25-59-0931Cejcextim department patient visitTim ThomasFacility:FTMCStart: 12-18-2024 End: 24-69-6063Fmuezt flowsLandon Mcguire PT Work Phone: noMS SWS PTHStart: 12-18-2024 End: 64-78-0487Opygal Millicent Mcguire PT Work Phone: NOMS SWS PTHStart: 12-18-2024 End: 26-33-9094iovmhjbmafEwien L Meyer PT Work Phone: NOMS SWS PTHComment on above:Primary osteoarthritis of both knees (Primary Dx)Start: 12-10-2024 End: 46-52-2191Tworfwncs Greg Brooke MD Work Phone: noms NE FMComment on above:Care CoordinationStart: 12-04-2024 End: 30-46-3908oyfuvivvptGXIUB M RUGGLESNot AvailableStart: 12-04-2024 End: 15-80-3577Uiursx outpatient visit 25 minutesMounika Brooke MD Work Phone: noms DC FMComment on above:Chronic hypoxemic respiratory failure (CMS/HCC) (Primary Dx); Acute cough; Chest congestion; Type 2 diabetes mellitus with hyperglycemia, with long-term current use of insulin (CMS/HCC); Long-term insulin use (CMS/HCC); Difficulty walking; Leg weakness, bilateral; BMI 35.0-35.9,adult; Morbid obesity (CMS/HCC); Type 2 diabetes mellitus with diabetic chronic kidney disease (CMS/HCC); Chronic kidney disease, stage 3b (HCC) (CMS/HCC); Essential (primary) hypertension ([facility]); Acquired absence of left foot ([facility]); Need for immunization against influenza; Need for pneumococcal vaccinationStart: 12-02-2024 End: 49-34-1866Ojffnywuz department patient visitNicole Jonathon [facility] Start: 09-04-2024 End: 45-05-9478cfuujqzxclAohqjrv P COOKFacility:EU [facility] HospitalkStart: 09-04-2024 End: 37-26-6884Celjzcx encounter procedureTaz THOMAS [facility] Start: 09-04-2024 End: 30-82-0195Wtdkmx outpatient visit 25 minutesKayla Sweeney MD Work Phone: noms ENDOCRINOLOGYComment on above:Type 2 diabetes mellitus with hyperglycemia, with long-term current use of insulin (CMS/HCC) (Primary Dx); Insulin long-term use ([facility]); Vitamin D deficiency; Encounter for dietary consultation; Hyperlipemia, mixed ([facility]); Primary hypertension (CMS/HCC)Start: 09-04-2024 End: 17-20-7629Skkohu Lizeth Sweeney MD Work Phone: noms ENDOCRINOLOGYStart: 09-04-2024 End: 34-31-0690Vbmollsruthi Sweeney MD Work Phone: noms ENDOCRINOLOGYStart: 09-04-2024 End: 39-31-7009ilbcbfazogQAFXU F SABBAGHNot AvailableStart: 08-06-2024 End: 01-63-5645Ubjstcvuj Greg Brooke MD Work Phone: noms NE FMComment on above:ReferralStart: 07-22-2024 End: 58-14-5947ytpfmjxgjdMTQGE M ALLENNot AvailableStart: 07-22-2024 End: 57-12-3983Dokrpa-up encounterPerlita Meeks MD Work Phone: NOMS NB OPHTComment on above:Follow-upStart: 07-22-2024 End: 14-99-9377Ztvczb Prasanna Meeks MD Work Phone: noms NB OPHTStart: 07-22-2024 End: 34-20-4310Bngfof Prasanna Meeks MD Work Phone: NOMS NB OPHTStart: 07-15-2024 End: 44-06-6256occkifcinxWBDZR F SABBAGHNot AvailableStart: 07-15-2024 End: 15-51-3388Cjxvwr outpatient visit 25 minutesKayla Sweeney MD Work [...] to 38.9 in adult (CMS/HCC)Start: 07-11-2024 End: 90-25-5635Xcjhzhjeet Brooke MD Work Phone: noms NE FMStart: 07-11-2024 End: 75-64-0560Sxlaqyjeet Brooke MD Work Phone: noms NE FMStart: 07-11-2024 End: 84-85-7241Ebapag outpatient visit 25 minutesMounika Brooke MD Work Phone: noms NE FMComment on above:Acute pain of right shoulder (Primary Dx); Chronic hypoxemic respiratory failure (CMS/HCC); Hypertension, unspecified type (CMS/HCC); BMI 40.0-44.9, adult (CMS/HCC); Morbid obesity (CMS/HCC)Start: 07-11-2024 End: 58-57-7577maszonpchcXGDERCarlton Ramos AvailableStart: 07-09-2024 End: 22-52-6338Ufjvftbzn department patient visitNicole Sale [facility] Start: 07-03-2024 End: 10-22-4091Wtkdvvjeet Brooke MD Work Phone: noms NE FMStart: 07-03-2024 End: 03-59-4633Oxaxoqjeet Brooke MD Work Phone: noms NE FMStart: 07-03-2024 End: 83-66-6540Bhuzjr outpatient visit 25 minutesMounika Brooke MD Work Phone: noms NE FMComment on above:Difficulty walking (Primary Dx); Acute on chronic respiratory failure with hypoxia and hypercapnia (CMS/HCC); Hypertension, unspecified type (CMS/HCC); Type 2 diabetes mellitus with hyperglycemia, with long-term current use of insulin (CMS/HCC); Morbid obesity (CMS/HCC); BMI 40.0-44.9, adult (CMS/HCC)Start: 07-03-2024 End: 69-01-4929fmojsvbhocTCRTRCarlton Ramos AvailableStart: 06-24-2024 End: 61-44-3046Leezzgkws encounterJennifer ROWAN Work Phone: noms NE FMStart: 06-23-2024 End: 03-64-0043Urytibitk department patient visitAstrit [facility] Start: 06-21-2024 End: 97-69-3081jxdfmtuyrgMqzmdpvOrtega Sánchezcility:FTMCStart: 06-21-2024 End: 12-63-4515Sibcvod encounter procedureJennifer SHORT [facility] Start: 06-21-2024 End: 92-86-1076Rhcsdw flowsRamu ROWAN Work Phone: noms NE FMStart: 06-21-2024 End: 69-99-9792Yznvbo Jan ROWAN Work Phone: noms NE FMStart: 06-21-2024 End: 88-00-4288Dlxjgrdrv Result EncounterJennifer ROWAN Work Phone: NODD External Department UnsolicitedStart: 06-21-2024 End: 33-40-2833Zfogjd outpatient visit 25 minutesJennifer ROWAN Work Phone: noms NE FMComment on above:Type 2 diabetes mellitus with hyperglycemia, with long-term current use of insulin ([facility]) (Primary Dx); Chronic cough; Chest wall pain; Non-recurrent acute serous otitis media of right earStart: 06-21-2024 End: 56-16-7151qwnucodtrqYKTTSYV J SOMMERSNot AvailableStart: 05-22-2024 End: 05-59-0979Jrtwlz Prasanna Meeks MD Work Phone: noms NB OPHTStart: 05-22-2024 End: 48-66-0748Iilwst Prasanna Meeks MD Work Phone: noms NB OPHTStart: 05-22-2024 End: 96-66-4642Tlxpsete Mirna Meeks MD Work Phone: noms NB OPHTComment on above:Retinal InjectionStart: 04-29-2024 End: 84-82-7151Qccbmx Perla Brooke MD Work Phone: noms NE FMStart: 04-29-2024 End: 11-43-8509Qlwsjc Perla Brooke MD Work Phone: noms NE FMStart: 04-29-2024 End: 95-72-7884Slrnfhr encounter Jon Brooke MD Work Phone: noms NE FMComment on above:Encounter for Medicare annual wellness exam (Primary Dx); Type 2 diabetes mellitus with hyperglycemia, without long-term current use of insulin ([facility]); RLS (restless legs syndrome); Chronic hypoxemic respiratory failure ([facility]); Stage 3b chronic kidney disease (HCC) ([facility]); Oxygen dependent; Morbid obesity ([facility]); BMI 40.0-44.9, adult ([facility]); Other diabetic neurological complication associated with type 2 diabetes mellitus ([facility]); TC (obstructive sleep apnea); Restless leg syndrome; Acute on chronic respiratory failure with hypoxia and hypercapnia ([facility]); Obesity hypoventilation syndrome ([facility]); Hypertension, unspecified type ([facility]); Varicose veins of both lower extremities, unspecified whether complicated; Gastroesophageal reflux disease, unspecified whether esophagitis present; 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 ([facility]); Mixed hyperlipidemia ([facility]); Long-term insulin use ([facility])Start: 04-29-2024 End: 77-39-9454Lubycglsv encounterMounika Brooke MD Work Phone: noms NE FMComment on above:Care CoordinationStart: 04-23-2024 End: 17-16-8491Aldyks Prasanna Meeks MD Work Phone: noms NB OPHTStart: 04-23-2024 End: 04-15-8440Czbngg Prasanna Meeks MD Work Phone: noms NB OPHTStart: 04-23-2024 End: 01-99-8875Zrvhqjle SupportPerlita Meeks MD Work Phone: noms NB OPHTComment on above:Retinal InjectionStart: 04-15-2024 End: 10-73-7792Tqslou outpatient new 45 minutesPerlita Meeks MD Work Phone: noms NB OPHTComment on above: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, unspecified proliferative retinopathy type (CMS/HCC) (Primary Dx); 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1 diabetes mellitus ([facility]/HCC)Start: 04-15-2024 End: 34-52-3706Cuoqtn Prasanna Meeks MD Work Phone: noms NB OPHTStart: 04-15-2024 End: 47-78-7098Yeldoh Prasanna Meeks MD Work Phone: noms NB OPHTStart: 03-11-2024 End: 90-21-2613leulqwherzAdgcima P COOKFacility:FTMCStart: 03-11-2024 End: 55-13-2224Getdhtf encounter procedureGregory P MARTHA [facility] Start: 03-06-2024 End: 35-69-3899tnxkvtouveAfzuun R DolceFacility:FTMCStart: 03-06-2024 End: 22-64-1382Cggcmiu encounter procedureKareem R [facility] Start: 02-28-2024 End: 04-23-3981ubklbjgopeIxakjh R DolceFacility:FTMCStart: 02-28-2024 End: 96-94-4137Scahaia encounter procedureKareem R [facility] Start: 02-28-2024 End: 63-36-0110sociowpcpsHcgbnlt P COOKFacility:EU RichkStart: 02-28-2024 End: 23-06-8596Jztwosl encounter procedureGregory P MARTHA [facility] Start: 02-15-2024 End: 93-02-2665xfltcprbqbAfcovd J GaleaFacility:EU tart: 02-15-2024 End: 04-45-8103Ogidbhb encounter procedureAlysha J Galea [facility] Start: 02-14-2024 End: 04-76-4194ztvbcmhwxuCtavuvl P COOKFacility:EU Richtart: 02-14-2024 End: 66-89-1896Ladomzy encounter procedureGregory P MARTHA [facility] Start: 02-09-2024 End: 37-07-7767pbrkgrrghvIbkpwj X OrzechFacility:EU [facility] HospitalPartyLinetart: 02-09-2024 End: 46-13-0582Cafwuvd encounter procedureAurora X Orzech [facility] Start: 02-05-2024 End: 51-67-5696hwoqplqognOhvrsub P COOKFacility:FTMCStart: 02-05-2024 End: 45-67-7980Yqwchzx encounter procedureGregory P COOK [facility] Start: 01-31-2024 End: 43-18-9203owomvdldzaAfhlcl Zarina HarringtonFacility:FTMCStart: 01-31-2024 End: 14-25-0124Rzkxfrx encounter procedureKarpoornima R JuanyProvidence Hospital Start: 01-23-2024 End: 14-74-2927utkcproeyvNlfe D DolceFacility:FTMCStart: 01-23-2024 End: 86-19-7037Vwiuenp encounter procedureMarc D [facility] Start: 01-17-2024 End: 87-34-9443Gye-admission assessmentMarc D [facility] Start: 01-15-2024 End: 15-04-7508Rmxermrbv department patient visitNicole Myers [facility] Start: 01-12-2024 End: 11-19-0073bklnbichnwXHBDIBHN E PERRYFacility:EU NorkStart: 01-12-2024 End: 85-05-5488Neqfjer encounter procedureJENNIFER E DARNELL [facility] Start: 01-02-2024 End: 98-37-2648kmykcrfhirAqfq D DolceFacility:FTMCStart: 01-02-2024 End: 93-96-8687Aimbhay encounter procedureMarc D [facility] Start: 12-26-2023 End: 01-85-6430xralomnzulFofa D DolceFacility:FTMCStart: 12-26-2023 End: 85-94-7221Ymlhpdf encounter procedureMarc D [facility] Start: 12-19-2023 End: 85-93-1581rdfubobwlfWqwh D DolceFacility:FTMCStart: 12-19-2023 End: 89-17-1350Qdevlkh encounter procedureMarc D [facility] Start: 12-15-2023 End: 49-96-5234nxzushastvMquttdq P COOKFacility:EU [place]walkStart: 12-15-2023 End: 38-06-4398Uhqdpdg encounter procedureGregphi THOMAS [facility] Start: 12-12-2023 End: 63-12-0567xhwbrluaxlQxii D DolceFacility:FTMCStart: 12-12-2023 End: 04-48-5784Axptipa encounter procedureMar D [facility] Start: 54-87-6587Xgszqxr encounter Jemima Truong APRN.LEARNING AND DEVELOPMENT DIRECTOR Work Phone: [facility] MAINStart: 26-69-2432Bxpqsjxy Jacqueline Truong APRN.LEARNING AND DEVELOPMENT DIRECTOR Work Phone: IF [facility] DEPARTMENTStart: 11-20-2023 End: 89-80-8550Qhuxdjz encounter procedureChristopherphi THOMAS [facility] Start: 91-60-1358Nrhoohle Nina Herrera Work Phone: [facility]Start: 11-20-2023 End: 67-75-2216ujvyexpctqQccymlq P COOKFacility:FTMCStart: 07-82-0894Ris-patient / Non-visitMD Mounika Brooke Work Phone: [facility] Nephrology Work Phone: Start: 28-12-4650Qog-patient / Non-visitMD Mounika Brooke Work Phone: [facility] OutPt Work Phone: Start: 11-11-2023 End: 28-91-2227Sejvoilxcs and management of inpatientMD Mounika Brooke Work Phone: [facility] Ctr-[address] [place] [facility] Work Phone: Start: 11-11-2023 End: 60-12-0040Cajfkonmr department patient visitAlejandro SilvaProvidence Hospital Start: 11-01-2023 End: 03-16-6559whwaywnyirAvxvisu P COOKFacility:EU kStart: 11-01-2023 End: 50-86-5157Eoyrybu encounter procedureGregphi THOMAS [facility] Start: 15-65-4619Ltihgjdqk encounterMounika Brooke MD Work Phone: NOCComment on above:Follow Up Phone Call (Post Discharge F/U - attempt made. No answer.)Start: 10-30-2023 End: 50-02-9582Tfprqknji department patient visitStaci Beck [facility] Start: 10-23-2023 End: 55-03-8313Mpignwltwh and management of inpatientBASEM G DONAHUE [facility]: 10-23-2023 End: 45-66-0501Uzwofxblp Result EncounterGeneric External Data ProviderNOMS External Department UnsolicitedStart: 10-23-2023 End: 48-52-4754Tkbkbphwf Result EncounterGeneric External Data ProviderNOMS External Department UnsolicitedStart: 10-18-2023 End: 75-67-7281tliavumqxeOxwpdah P COOKFacility:EU NorkStart: 10-18-2023 End: 80-75-3861Dowixmv encounter procedureGregory Jarad THOMAS [facility] Start: 10-15-2023 End: 41-30-5643Pjicuwrqf department patient visitMone Martinez [facility] Start: 10-13-2023 End: 40-64-0121nnwwzsfakaVH Mounika Brooke Work Phone: [facility] C[facility] Work Phone: Start: 10-13-2023 End: 85-91-6470Puytjex encounter procedureMD Mounika Brooke Work Phone: [facility] C[facility]-Lab Main [place] Work Phone: Start: 88-20-2851Lkx-patient / Non-visitMD Mounika Brooke Work Phone: [facility] Nephrology Work Phone: Start: 71-67-0434Vlf-patient / Non-visitMD Mounika Brooke Work Phone: [facility] Nephrology Work Phone: Start: 28-53-5008Rnc-patient / Non-visitMD Mounika Brooke Work Phone: [facility] Med OutPt Work Phone: Start: 10-06-2023 End: 65-05-9454Klnafajbmn and management of inpatientMD Mounika Brooke Work Phone: [facility] C[facility]-[address] [place] [facility] Surg Work Phone: Start: 10-05-2023 End: [id number] X OrzechFacility:EU SuzannakStart: 10-05-2023 End: 63-07-2370Beqkqfj encounter procedureAurora X Orzech [facility] Start: 10-04-2023 End: [id number] R DolceFacility:FTMCStart: 10-04-2023 End: 49-66-8506Hpgmefn encounter procedureKareem R [facility] Start: [id number] DolceFacility:EU BellevueStart: 10-02-2023 End: 31-37-3417lxbqpezofqYulz E. MouranyFacility:FTMCStart: 10-02-2023 End: 71-56-9815AcbqwhegqKxgs E. Mourany [facility] Start: 09-26-2023 End: 65-01-9896bghfdqvrhlCfcvov X OrzechFacility:EU BellevueStart: 09-25-2023 Sandy Brooke MD Work Phone: noms NE FMStart: 10-25-8261Orjruosruthi Brooke MD Work Phone: noms NE FMStart: 09-24-2023 End: 09-57-3654Szrthvrec department patient visitNodebora SumanSue Phan [facility] Start: 11-67-9445Qzscz Lali Brooke MD Work Phone: noms NE FMStart: 09-18-2023 End: 64-54-9560Paw-admission assessmentMarc D [facility] Start: 09-17-2023 End: 33-24-4097Xsfdhsrqn department patient visitAstrit H [facility] Start: 09-12-2023 End: 54-04-8651Ffxrigbutk and management of inpatientXXXX [facility]: 09-05-2023 End: 44-89-2998ahfxyvikrqSwxx D DolceFacility:[facility]art: 09-05-2023 End: 37-38-0138Adcdrdl encounter procedureMarc D [facility] Start: 08-30-2023 End: 44-91-8173Gxgfbdw encounter procedureSukh Srinivasan [facility] Start: 08-24-2023 End: 61-20-7698Nfmhfhu encounter Felipe SRTOUD 457-8290Axdxxv-GaizsChildren'S Hospital For Rehabilitation Start: 08-16-2023 End: 52-62-8624Ocnqjle encounter procedureSukh Srinivasan [facility] Start: 08-06-2023 End: 11-08-6698Tfjclauqg department patient visitAstrit H [facility] Start: 08-02-2023 End: 30-78-1608Xgcpvxu encounter procedureSukh Srinivasan [facility] Start: 07-19-2023 End: 01-99-2352Piyexap encounter procedureSukh Srinivasan [facility] Start: 06-28-2023 End: 12-59-5489Bsoyios encounter procedureSukh Srinivasan [facility] Start: 06-26-2023 End: 04-09-4140Xnxajyv encounter Felipe STROUD 388-2272Hhfihz-PhqjsChildren'S Hospital For Rehabilitation Start: 06-19-2023 End: 75-71-9522Llbvzcuezh and management of inpatientDO Reid Mendy Work Phone: [facility] [place] [facility] Work Phone: Start: 06-11-2023 End: 08-31-1543Buwhmhcsaj and management of inpatientAlaasia RICARDOProvidence Hospital Start: 06-07-2023 End: 70-47-6246Oehxhbw encounter procedureSukh Srinivasan [facility] Start: 05-24-2023 End: 58-08-2401Aia-SiteMigue STROUD 109-9082Etsxyf-VmpixChildren'S Hospital For Rehabilitation Start: 05-22-2023 End: 93-75-1902Yvi Drop offMigue STROUD [facility] Start: 05-22-2023 End: 88-88-1820Uusiknj encounter Felipe STROUD 669-9343Rtmjhl-SdnegChildren'S Hospital For Rehabilitation Start: 05-08-2023 End: 39-15-7478Axdvvow encounter procedureBarubina Myah Mendez [facility] Start: 05-02-2023 End: 54-27-4920Fjm-admission assessmentKarpoornima Srinivasan [facility] Start: 05-01-2023 End: 87-23-8629Fzwhekf encounter procedureKarpoornima Srinivasan [facility] Start: 04-26-2023 End: 37-87-0598Sdjbsmw encounter procedureSukh Srinivasan [facility] start: 04-25-2023 End: 34-00-2336Rryfrth encounter procedureSmooth Elizondo [facility] Start: 04-19-2023 End: 37-09-9891Nepmses encounter procedureSukh Zarina [facility] Start: 04-03-2023 End: 25-89-3958Okihepd encounter procedureMigue STROUD 015-6055Uazmwu-OionkChildren'S Hospital For Rehabilitation Start: 12-26-2022 End: 19-80-3764Pcwwoav encounter procedureMigue STROUD 231-3071Cknnvo-UaoxuChildren'S Hospital For Rehabilitation Start: 12-02-2022 End: 20-28-3304Zzmnjmt encounter procedureMigue STROUD 160-2727Nrfyfd-TjozbChildren'S Hospital For Rehabilitation Start: 09-21-2022 End: 50-51-8675Wip-SiteMigue STROUD 583-1711Tjiqlr-CnknpChildren'S Hospital For Rehabilitation Start: 09-13-2022 End: 01-96-8214Jvtzfwk encounter procedureMigue STROUD 623-0815Dmuror-AnweaChildren'S Hospital For Rehabilitation Start: 08-21-2022 End: 42-30-5431Yqp-SiteMigue STROUD 284-7665Rgrqxn-QohgvChildren'S Hospital For Rehabilitation Start: 08-04-2022 End: 94-21-4187Vhifkvpoi department patient Raphael Martinez [facility] Start: 03-29-2022 End: 79-21-2045Okgganb encounter procedureMigue STROUD 480-0277Vvyfut-NhsnlChildren'S Hospital For Rehabilitation Start: 03-21-2022 End: 26-71-3869Pie-SiteMigue STROUD 969-2154Tizccb-XelrsChildren'S Hospital For Rehabilitation Start: 03-08-2022 End: 54-72-9574Ihljpfrkt department patient visitJose Miguel Phan [facility] Start: 01-11-2022 End: 38-48-1281Hzmcceq encounter procedureMigue STROUD 808-2846Fsamsl-TriqpChildren'S Hospital For Rehabilitation Start: 12-28-2021 End: 69-38-4751Vgy-SiteMigue STROUD 578-0854Tevnlf-JysclChildren'S Hospital For Rehabilitation Procedures DateProcedureProcedure DetailPerforming ClinicianStart: 85-58-4540Qdkw bld gluc mntr dev cleared fda spec home useKayla Sweeney MD Work Phone: Start: 06-02-2025 End: 16-16-4260Lelcv medical xm&eval comprhnsv estab pt 1/>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, unspecified proliferative retinopathy type (HCC)Perlita Meeks MD Work Phone: comment on above: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, unspecified proliferative retinopathy type (HCC) (Primary Dx); 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1 diabetes mellitus (HCC)Start: 48-18-7854Ssnb bld gluc mntr dev cleared fda spec home useKayla Sweeney MD Work Phone: Start: 05-37-5913Pchtjuwzncyd njx pharmacologic agt Solo Meeks MD Work Phone: Start: 63-77-7493Fxpktuqijuhv ophthalmic imaging Tricia Meeks MD Work Phone: Start: 13-76-7141Xxhy bld gluc mntr dev cleared fda spec home useKayla Sweeney MD Work Phone: Start: 10-14-9095BA CHEST 2 VIEWSDeshellie ROWAN Work Phone: start: 01-57-8955Hfhlenwegi glycosylated j1bBzbemhiJennifer ROWAN Work Phone: start: 06-75-4394Dvafqfwhvhdv njx pharmacologic agt Solo Meeks MD Work Phone: Start: 54-35-1250Zvvkmjmrgzkp ophthalmic imaging Tricia Meeks MD Work Phone: Start: 25-96-1644Txzjtqthiefl njx pharmacologic agt Solo Meeks MD Work Phone: Start: 45-21-9513Ntqlwiudziju ophthalmic imaging Tricia Meeks MD Work Phone: Start: 71-94-9085Vnjrc chest X-rayMD Mounika rBooke Work Phone: start: 63-47-0695Xrkxx cultureMD Mounika Brooke Work Phone: start: 55-96-5742Jct routine ecg w/least 12 lds w/i&r Generic External Data ProviderStart: 70-29-3797Pdbtrzxbrspoqne of bilateral kidneysMD Mounika Brooke Work Phone: start: 95-74-0727Imiem chest X-rayMD Mounika Brooke Work Phone: start: 55-11-5328Mcboo culture for bacteria, including anaerobic screenMD Mounika Brooke Work Phone: start: 19-92-0425KUSQ-CoV-2, Influenza & RSV (PCR)MD Mounika Brooke Work Phone: start: 10-88-1900Okudk chest X-rayDO Art Kirby Start: 60-36-9374DNDI-CoV-2, Influenza & RSV (PCR)DO Reid Brooke Work Phone: Start: 90-38-9467Jooltked extraction and insertion of intraocular lensMigue STROUD Comment on above:LEFTStart: 59-54-3778Mrrmrzmo extraction and insertion of intraocular lensMigue STROUD Comment on above:rightStart: 16-82-5414Uglfzhmq AND drainageMigue STROUD Comment on above:Left footStart: 63-97-6003Hxjuf thickness skin graftMigue STROUD Comment on above:left footStart: 00-92-8488glaaccln preparation of left foot ulceration for skin grafting with versajet and application of stravix skin graft to left foot ulcerMigue STROUD Start: 96-31-6440kxkg foot TMA with packing, partial closureMigue STROUD Start: 64-68-8608khfgwpb secondary closure of the left foot wound with VersaJet debridement as well as pulse lavage.excision of ulceration to the plantar left foot with single lobe rotation skin plasty flap for closureMigue STROUD Start: 74-07-2767ktfk transmetatarsal amputation with partial closure with iodoform gauze packing. incision and drainage of left infected foot with Pulsavac and pulse lavageMigue STROUD Start: 23-94-2616ingktrpmfh wound debridement to right subfourth metatarsal head ulceration with Versa jet sharp debridement as well as application of DermagraftJekeily STROUD Start: 04-62-4707jhss incision and drainage of foot abscess with wound cultures as well as partial fifth ray amputation with digit, left foot, with pulsed lavageMigue STROUD History of amputation of footAcquired absence of left foot (CMS/HCC)Mounika Brooke MD Work Phone: Umbilical Hernia RepairMigue STROUD Plan of Treatment DateCare ActivityDetailAuthorStart: 21-00-5210Pfuizbgx screeningDiabetes: Retinopathy ScreeningNOMD HealthcareStart: 00-98-6513Vgagn screening for protein Diabetes: Urine Protein ScreeningNOMD HealthcareStart: 38-15-4589Wwqcj screening for proteinDiabetes: Urine Protein ScreeningNOMD HealthcareStart: 12-01-2025 End: 33-52-8355Ibypmxe encounter vdfmokgjc71/13/2026 8:30 AM EDT Office Visit [facility] [address] [place] [phone] Perlita Meeks MD [address] [place] [address] [facility] EyeStart: 09-05-2025 Hemoglobin A1c measurementDiabetes: Hemoglobin C8GVUTR HealthcareStart: 09-04-2025 End: 97-62-7419Fpjsvel encounter biwgjleby93/15/2026 1:10 PM EST Office Visit [facility] [address] [place] [address] Kayla Sweeney MD [address] [place] [address] DEBBIE [facility] EndocrinologyStart: 61-43-9442Mhhwhmiy screeningDiabetes: Retinopathy ScreeningNOMD HealthcareStart: 06-05-2025 End: 37-02-3694Xutalsv encounter procedureNOMS [facility]on EndocrinologyComment on above:ArrivedStart: 06-02-2025 End: 84-52-5927Hzvrrhz encounter ctbslfqwe48/13/2025 8:30 AM EDT Office Visit [facility] [address] [place] [address] Perlita Meeks MD [address] [place] [address] [facility]rivedConerly [facility] Care [facility] EyeComment on above:ArrivedStart: 05-01-2025 End: 47-26-0142Biiljlh encounter /11/2025 8:15 AM EDT Office Visit [facility] [address] [place] [address] Perlita Meeks MD [address] [place] [address] [facility]Start: 04-29-2025 Medicare Annual Wellness (AWV)Medicare Annual Wellness (AWV)[facility] Start: 04-29-2025 End: 67-15-3571Fcgbxfe encounter ugexqxvuv80/09/2025 11:00 AM EDT Office Visit [facility] [address] [place] [phone] Mounika Brooke MD [address] [place] [address] ArrivedSt. Vincent's Blount [facility] MedicineComment on above:Arrived Start: 93-67-4937Qtrgycfp screeningDiabetes: Retinopathy ScreeningNOMD HealthcareStart: 55-24-7566Dqslcntjv vaccinationInfluenza Vaccine (#1)NOMS HealthcareStart: 23-28-0736Mbtqlhbs screeningDiabetes: Retinopathy ScreeningNOMD HealthcareStart: 03-13-2025 End: 50-79-9709Ukqlcxk encounter fqjgjuque63/24/2025 12:20 PM EDT Office Visit N[facility] [address] [place] [address] [phone], Hanna M, MD [address] [place] [address] ArrivedNOTULSA CENTER FOR [facility] FMComment on above:ArrivedStart: 87-31-0530Tuppv screening for proteinDiabetes: Urine Protein ScreeningBLUE MOUNTAIN H[facility]PITAL, INC. HealthcareStart: 02-05-2025 End: 30-92-1804Yyyhmnu encounter kfdsybura28/18/2025 12:20 PM EDT [facility] [address] [place] [address] [phone], Hanna M, MD [address] [place] [address] [facility] FMStart: 12-31-2024 End: 98-67-0464Etxdikq encounter yssqgluax24/13/2025 2:20 PM EDT Office Visit [facility] [address] [place] [phone] Kayla Sweeney MD [address] [place] [address] [facility] ENDOCRINOLOGYStart: 12-26-2024 End: 25-35-6632Jutkffc encounter gniafxvhh15/08/2025 3:20 PM EDT Office Visit [facility] [address] [place] [address] Mounika Brooke MD [address] [place] [address] [facility] FMStart: 12-26-2024 End: 92-27-3214WMK W Auto Differential panel - BloodCBC and differential Lab Routine Muscle cramps Expected: 12/26/2024 (Approximate), Expires: 12/26/2025 [facility] Work Phone: comment on above:Expected: 12/26/2024 (Approximate), Expires: 12/26/2025Start: 12-26-2024 End: 66-82-4798Sdjenyrauxatt metabolic 2000 panel - Serum or PlasmaComprehensive metabolic panel Lab Routine Muscle cramps Expected: 12/26/2024 (Approximate), Expires: 12/26/2025NOMD HealthcareComment on above:Expected: 12/26/2024 (Approximate), Expires: 12/26/2025Start: 12-26-2024 End: 10-77-5366Fkjxtuwwu [Mass/volume] in Serum or PlasmaMagnesium Lab Routine Muscle cramps Expected: 12/26/2024 (Approximate), Expires: 12/26/2025NOMD HealthcareComment on above:Expected: 12/26/2024 (Approximate), Expires: 12/26/2025Start: 12-04-2024 End: 63-56-9074Kbfugid encounter thzdsoqtv71/16/2025 2:40 PM EDT Office Visit [facility] ENDOCR[facility]OLOG[facility] [address] [place] [phone] Kayla Sweeney MD [address] [place] [address] NOMS ENDOCRINOLOGYStart: 76-08-8154Mvkyhmfmns A1c measurementDiabetes: Hemoglobin L8HQKYX HealthcareStart: 11-21-2024 End: 31-40-6682Fpgfedn encounter iloxkavnc07/03/2025 1:30 PM EDT Office Visit [facility] [address] [place] [phone] Perlita Meeks MD [address] [place] [address] NOMS OPHTStart: 90-34-4486Blwargee blood count Hemoglobin/HematocritClewooster community hospital ClinicStart: 21-53-1306Rrnicgoxod measurement Serum CreatinineChillicothe VA Medical Centertart: 60-98-5000Sdvsxnrob B surface antibody levelLDL CholesterolClewooster community hospital ClinicStart: 89-02-5432Smebuqkigi A1c measurement Diabetes: Hemoglobin F7TSSZG HealthcareStart: 09-04-2024 End: 47-27-5440Pzjvyji encounter procedureNOEASTERN MISSOURI [facility] ENDOCRINOLOGYComment on above: Type 2 diabetes mellitus with hyperglycemia, with long-term current use of insulin ([facility])Start: 09-04-2024 End: 455899-dpnoxuaelzkxtq D3 [Mass/volume] in Serum or PlasmaVitamin D 25 hydroxy Total Lab Routine Type 2 diabetes mellitus with hyperglycemia, with long-term current use of insulin ([facility]) Expected: 09/04/2024 (Approximate), Expires: 09/04/2025[facility] HealthcareComment on above:Expected: 09/04/2024 (Approximate), Expires: 09/04/2025Start: 09-04-2024 End: 93-54-4019B-peptideC-peptide Lab Routine Type 2 diabetes mellitus with hyperglycemia, with long-term current use of insulin ([facility]) Expected: 09/04/2024 (Approximate), Expires: 09/04/2025[facility] Work Phone: Comment on above:Expected: 09/04/2024 (Approximate), Expires: 09/04/2025Start: 09-04-2024 End: 84-55-7242Nuxji 1996 panel - Serum or PlasmaLipid panel Lab Routine Type 2 diabetes mellitus with hyperglycemia, with long-term current use of insulin ([facility]) Expected: 09/04/2024 (Approximate), Expires: 09/04/2025[facility] Healthcare Comment on above:Expected: 09/04/2024 (Approximate), Expires: 09/04/2025Start: 09-04-2024 End: 82-77-0586Mxfxfuqlnkhe/Creatinine panel in random UrineMicroalbumin / creatinine urine ratio Lab Routine Type 2 diabetes mellitus with hyperglycemia, withlong-term current use of insulin ([facility]) Expected: 09/04/2024 (Approximate), Expires: 09/04/2025[facility] HealthcareComment on above:Expected: 09/04/2024 (Approximate), Expires: 09/04/2025Start: 09-04-2024 End: 75-52-9604Okqzg function panelRenal function panel Lab Routine Type 2 diabetes mellitus with hyperglycemia, with long-term current use of insulin ([facility]/HCC) Expected: 09/04/2024 (Approximate), Expires: 09/04/2025[facility] Comment on above:Expected: 09/04/2024 (Approximate), Expires: 09/04/2025Start: 23-25-4403Qtqto screening for proteinDiabetes: Urine Protein ScreeningNOMD HealthcareStart: 07-22-2024 End: 65-55-8662Aqwqhiwv Shvlumg0107/22/2024 2:15 PM EST Clinical Support [facility] [address] [place] [phone] Perlita Meeks MD [address] [place] [address] [facility] OPHTStart: 07-15-2024 End: 93-19-6594Pwdva blbraqhgzyp79/25/2024 Abstract [facility] [address] [place] [address] Kayla Sweeney MD [address] [place] [address] [facility] ENDOCRINOLOGYStart: 07-15-2024 End: 03-29-5459Cgivtwt encounter lkiqbptwh24/25/2024 1:40 PM EST [facility] [address] [place] [phone] Kayla Sweeney MD [address] [place] [address] [facility] ENDOCRINOLOGYStart: 07-11-2024 End: 84-23-3952Oqgdwchq SupportNOREYNOLDS COUNTY GENERAL [facility] OPHTComment on above:ArrivedStart: 06-27-2024 End: 85-85-3320Zftqcwjv Xgejkbc9506/27/2024 2:15 PM EST Clinical Support [facility] [address] [place] [phone] Perlita Meeks MD [address] [place] [address] NOMS NB OPHTStart: 06-21-2024 End: 19-15-6209FG Chest 2 ViewsXR chest 2 views Imaging Routine Chronic cough Chest wall pain Expected: 06/21/2024, Expires: 06/21/2025[facility] Work Phone: comment on above:Expected: 06/21/2024, Expires: 06/21/2025Start: 06-21-2024 End: 06-00-2829Cfhwjwi encounter mlclriopk85/01/2024 1:30 PM EDT Office Visit [facility] [place] [address] [place] [phone] Jennifer Short PA [address] [place] [address] ArrivedNOMS NE FMComment on above:ArrivedStart: 05-23-2024 End: 73-26-9484Garlsksd Dwseqzf2905/23/2024 10:15 AM EDT Clinical Support [facility] [address] [place] [address] Perlita Meeks MD [address] [place] [address] NOMS NB OPHTStart: 05-22-2024 End: 60-31-2661Smbrbagg Nfvgvzg4605/22/2024 2:00 PM EDT Clinical Support [facility] [address] [place] [address] Perlita Meeks MD [address] [place] [address] ArrivedNOMD NB OPHTComment on above:ArrivedStart: 04-29-2024 End: 82-80-8885Bsnesiu encounter cpzypmuop30/09/2024 2:00 PM EDT Office Visit [facility] [address] [place] [address] Mounika Brooke MD [address] [place] [address] ArrivedNOMS NE FMComment on above:ArrivedStart: 04-23-2024 End: 30-91-2487Kfrqftwy Hkuzjic5804/23/2024 10:45 AM EDT Clinical Support [facility] [address] [place] [address] Perlita Meeks MD [address] [place] [address] ArrivedNOMS NB OPHTComment on above:ArrivedStart: 04-21-2024 Influenza vaccinationInfluenza Vaccine (#1)NOMS HealthcareStart: 04-15-2024 End: 42-60-7100Yrjvzfo encounter glnyibnvd58/26/2024 2:30 PM EDT Office Visit [facility] [address] [place] [address] Perlita Meeks MD [address] [place] [address] ArrivedNOMS NB OPHTComment on above:ArrivedStart: 01-24-2024 Hemoglobin A1c measurementChillicothe VA Medical Centertart: 92-65-0893IasldmkcoWright-Patterson Medical Centertart: 26-97-0212Yqbkindp admissionWright-Patterson Medical Centertart: 45-89-2108MzyorczymWright-Patterson Medical Centertart: 11-11-2023 Referral to nephrologistWright-Patterson Medical Centertart: 10-12-2023 [facility]ertart: 86-44-7666Bwaasrca to electric vehicle electrician [facility]ertart: 66-64-8761Asrkdlxv admissionWright-Patterson Medical Centertart: 66-78-9115ZrrywxhhgWright-Patterson Medical Centertart: 98-15-2758Qnetu chest X-rayXR chest 1V portableSelect Medical Specialty Hospital [facility] Start: 89-07-3545ZX Chest Single viewWright-Patterson Medical Centertart: 24-46-2102Xydvfstl identified in Blood by CultureWright-Patterson Medical Centertart: 09-25-2023 End: 13-66-3083Upgmmjg encounter procedureNOMS NE FMComment on above:Arrived Start: 84-57-4398Hidjedywmn Health ScreeningBehavioral Health ScreeningChillicothe VA Medical Centertart: 65-07-1683Pzygdwhtxa AssessmentDepression AssessmentChillicothe VA Medical Centertart: 32-99-8327Yivxt chemistryWright-Patterson Medical Centertart: 13-14-1843DkpysezdxWright-Patterson Medical Centertart: 17-69-7236Illgl chemistry [facility] Centertart: 16-85-3091MwstppucnWright-Patterson Medical Centertart: 74-61-8659Uydol Holzer Hospitaltart: 06-21-2023 End: 69-63-2057FbxovvoxjWright-Patterson Medical Centertart: 49-50-1148Monkavpfpbhc [facility] Centertart: 96-55-5907Hvwny chemistryWright-Patterson Medical Centertart: 51-55-2966UvmtgtnblWright-Patterson Medical Centertart: 82-53-3592Azgchdlglwynyc of prophylactic treatmentWright-Patterson Medical Centertart: 20-40-2311Xmjkj Holzer Hospitaltart: 83-96-0447WqvwjsmbcWright-Patterson Medical Centertart: 66-10-6323Oijkaebl admission [facility] Centertart: 63-06-7677RjkeaghhgWright-Patterson Medical Centertart: 88-10-9280Htali chest X-rayXR chest 1V portableWright-Patterson Medical Centertart: 70-34-9455FZ Chest Single viewWright-Patterson Medical Centertart: 62-34-6554Dekmn-19 Vaccine ( season)Covid-19 Vaccine ( season)[facility] Centertart: 14-74-8215Zivnvdjuzxnd vaccination Pneumococcal Vaccine (2 of 2 - PCV)[facility] Centertart: 02-47-1893Zijexmylcwth Vaccine: 65+ Years (2 of 2 - PCV)Pneumococcal Vaccine: 65+ Years (2 of 2 - PCV) [facility] HospitalStart: 00-12-8996HPE Vaccine (1 - 1-dose 60+ series)RSV Vaccine (1 - 1-dose 60+ series)[facility] Centertart: 72-83-6714Mnzswdbw specific antigen measurementProstate Cancer Screening DiscussionChillicothe VA Medical Centertart: 55-90-2142Gxockgzu Vaccine (1 of 2)Shingrix Vaccine (1 of 2)[facility] Start: 31-01-4309Qeetuoits for malignant neoplasm of colonChillicothe VA Medical Centertart: 90-60-0764Yawxu microalbumin profileDTaP,Tdap,Td Vaccine (1 - Tdap)[facility] Cent[facility]art: 70-28-8356Ieshrp PCP Team Chronic Disease VisitAnnual PCP Team Chronic Disease VisitChillicothe VA Medical Centertart: 14-00-6564ED Controlled (<130/80)BP Controlled (<130/80)[facility]: 72-85-6667Lsmtnpxda C screening Hepatitis C ScreeningChillicothe VA Medical Centertart: 10-96-0543XYO screeningHIV Screening [facility]ertart: 54-78-7034Xnerxgoy foot examinationDiabetic Foot Exam [facility] Centertart: 31-90-4071Eescfbpd screeningMercy McCune-Brooks HospitalStart: 71-39-1923Hohzhxrha B screeningUrine Albumin:Creatinine RatioJoint Township District Memorial Hospital Start: 69-63-1219Mwpayarvlz A1c measurementDiabetes: Hemoglobin J5XVXUVMercy McCune-Brooks HospitalStart: 1959Medicare Annual Wellness (AWV)Medicare Annual Wellness (AWV)[facility] HealthcareStart: 64-43-7320Rgdwvczhg for malignant neoplasm of colonBLUE MOUNTAIN HOSPITAL, INC. HealthcareAnion gap measurementSelect Medical Specialty Hospital [facility] [place] Basophils [#/volume] in Blood by Automated [facility]edoBasophils/100 leukocytes in Blood by Automated [facility]edoEosinophils [#/volume] in [facility] Eosinophils/100 leukocytes in Blood by Automated [facility] ToledoErythrocyte distribution width [Ratio] by Automated [facility] ToledoErythrocytes [#/volume] in [facility] GeneralHematocrit [Volume Fraction] of [facility] GeneralHemoglobin [Mass/volume] in BloodSelect Medical Specialty [facility] [place] Leukocytes [#/volume] corrected for nucleated erythrocytes in Blood by Automated counSelect Medical Specialty Hospital - Southeast OhioLeukocytes [#/volume] in BloodSelect Medical Specialty Hospital - Southeast OhioLymphocytes [#/volume] in Blood by Automated count [facility] OhioLymphocytes/100 leukocytes in Blood by Automated [facility] [Entitic mass] by Automated [facility]Select [facility] OhioMCHC [Mass/volume] by Automated count [facility] OhioMCV [Entitic volume] by Automated count [facility] OhioMonocytes [#/volume] in Blood by Automated countSelect [facility] OhioMonocytes/100 leukocytes in Blood by Automated [facility]edoNeutrophils [#/volume] in Blood by Automated [facility]edoNeutrophils/100 leukocytes in Blood by Automated [facility] ToledoNucleated erythrocytes [Presence] in Blood by Automated [facility] ToledoOptical coherence tomography study reportOCT, Retina - OU - Both Eyes Ophthalmology Routine 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, unspecified proliferative retinopathy type (HCC) Ordered: [facility] Work Phone: comment on above:Ordered: 06/02/2025Patient Education [facility] Work Phone: [facility] referralUniversity [facility] Work Phone: Platelet mean volume [Entitic volume] in Blood by Automated [facility]edoPlate[facility] [#/volume] in Blood [facility] Immunizations Immunization DateImmunizationNotesCare YbiapmffMymfisoo95-05-2911Icwvkrwowjah Conjugate PCV 20Mounika Brooke MD Work Phone: [facility] HospitalNedzmkyhcg86-17-6396Jojlztzf, trivalent, recombinant, injectable influenza vaccine, preservative freeMounika Brooke MD Work Phone: [facility] JosephSdxqahdtta07-40-6637hjlqypzga virus vaccine, unspecified formulationMounika Brooke MD Work Phone: [facility] HospitalEmfnxsylqg47-52-3413pnmhmybnqa skin test; purified protein derivative solution, intradermalMounika Brooke MD Work Phone: [facility] HospitalBazbsktjxr81-32-0862pitlsyxpfz skin test; purified protein derivative solution, intradermalMounika Brooke MD Work Phone: noM[facility] JosephWvcudlsgxw79-42-5071armezqwvb, injectable, quadrivalent, preservative freeMigue STROUD 955-8841Wfrmoa-MhdflChildren'S Hospital For Rehabilitation 58-13-0893lwbzqkmpg virus vaccine, unspecified formulationPerlita Meeks MD Work Phone: noM[facility]. JosephIaxfilihwu44-01-1611ZEWZR-56, mRNA, LNP-S, bivalent booster, PF, 30 mcg/0.3 mL doseKevin Juan 394-3396Hyowks-HvyzjChildren'S Hospital For Rehabilitation 79-29-6157goezxebge, injectable, quadrivalent, preservative freeMone Martinez 374-5688Yjedul-TzkfeChildren'S Hospital For Rehabilitation 81-61-9292VGEY-CoV-2, UnspecifiedMounika Brooke MD Work Phone: [facility] HospitalNqhrytmgkd85-95-2154OXLYV-88, mRNA, LNP-S, PF, 100 mcg or 50 mcg doseMigue STROUD 825-7583Vxjqpt-NncinChildren'S Hospital For Rehabilitation 11-323211-66-8695yugrcarxg, injectable, quadrivalent, preservative freeMigue STROUD 046-3460Dnzttk-DpijrChildren'S Hospital For Rehabilitation 04-614462-82-2348XEPO-LjJ-9 (COVID-19) mRNA-1273 vaccine Migue STROUD 989-1590Vohxlq-PrawoChildren'S Hospital For Rehabilitation 03-346435-63-4468NKCS-LqX-0 (COVID-19) wQIP-3357 vaccine Migue STROUD 188-4443Blgtwh-PsleiChildren'S Hospital For Rehabilitation 10868375-42-1365chasmyldb, injectable, quadrivalent, contains preservativeMigue STROUD 851-5743Eqeypd-GlygyChildren'S Hospital For Rehabilitation 12254151-69-5011niowxikzx virus vaccine, unspecified formulationNo [facility]12-18-2018influenza, injectable, quadrivalent, contains preservativeMounika Brooke MD Work Phone: [facility] HospitalRfmqbmvogk63-44-9441vehenshcrqwh polysaccharide vaccine, 23 valentJekeily KLINEWOOD 438-5526Griyby-JgbwjChildren'S Hospital For Rehabilitation 04690934-15-4201ydqfclkuieub polysaccharide vaccine, 23 valentJose Miguel [facility] Payers DatePayer CategoryPayerPolicy [id number] Health [id number] [id number] UnknownDEVOTED HEALTH [facility] [id number] 2023-Present [address] [place] [id number] 2023Medicare [id number] 2023Medicaid 1.2.840.1638[id number] [id number] 2023Medicare (Managed Care) [id number] 2016Medicare 1.2.840.497726.1.13.159.2.7.[id number] 2.16.840.1.220256.3.579.2.45611-88-7518Mxzzhqg36729739 2.16840.1.525753.3.579.2.80963-73-4969Uazsbak06892693 2.16840.1.258443.3.579.2.67160-15-1468Gfdmhte28447953 2.16840.1.717088.3.579.2.95036-18-8964Chtcyrc92222709 2.16840.1.820891.3.579.2.19567-85-7420Cpsdcwg94644029 2.16840.1.926832.3.579.2.92530-12-3668Mylihcg98066248 2.16.840.1.248134.3.579.2.48690-70-7183Nbwhxwn01683254 2.16.840.1.881056.3.579.2.95541-09-5397Xxlbkcn66200088 2.16840.1.344741.3.579.2.26395-81-3995Gtidlqo22827064 2.16840.1.773147.3.579.2.87877-48-8770Cpfcznf84655491 2.16.840.1.170937.3.579.2.47943-95-1429Hhmbyzn78995471 2.16.840.1.788150.3.579.2.78871-44-3312Lokpzfs92194766 2.16.840.1.418501.3.579.2.33136-36-1326Sjcyupb47849867 2.16.840.1.921350.3.579.2.50690-15-7235Caxzqlb31557374 2.16.840.1.946048.3.579.2.64851-97-7939Mgauuzv23191282 2.16.840.1.427672.3.579.2.84808-82-1124Knollox64948132 2.16.840.1.117787.3.579.2.62048-75-7820Ukiqufp21055986 2.16.840.1.048230.3.579.2.26826-68-0921Solicca66453583 2.16.840.1.550996.3.579.2.14505-33-6925Fpiwyae51852420 2.16.840.1.594726.3.579.2.56762-31-5812Mqytlvt06192037 2.16.840.1.982051.3.579.2.20710-41-9340Jjriyge33010187 2.16.840.1.047279.3.579.2.65268-42-3719Viqwjlm91190171 2.16.840.1.151408.3.579.2.44471-68-1917Fjgjscq75647944 2.16.840.1.360287.3.579.2.92180-59-0837Eislqwo32853767 2.16.840.1.486399.3.579.2.92998-78-9683Lbcywdw81121409 2.16.840.1.663740.3.579.2.72623-08-6742Kkcword88760232 2.16.840.1.259713.3.579.2.62666-06-6786Rdgrhwz39934305 2.16.840.1.946180.3.579.2.36408-86-6191Lvdllev21161336 2.16.840.1.405746.3.579.2.87061-40-6693Nsytdvx13386359 2.16.840.1.035586.3.579.2.17584-35-6076Wvbtllj84707089 2.16.840.1.823352.3.579.2.87171-94-6138Biweskn38053108 2.16.840.1.656191.3.579.2.62264-58-4667Bwohnao46265013 2.16.840.1.862590.3.579.2.88569-31-3471Azwluoj96702911 2.16.840.1.357978.3.579.2.72677-96-3791Bllcibh08742634 2.16.840.1.034336.3.579.2.82829-02-4306Hrmpkve73933653 2.16.840.1.966079.3.579.2.22735-55-0846Oegwiis37941676 2.16.840.1.298249.3.579.2.05195-16-8604Qjkcotb06903274 2.16.840.1.920752.3.579.2.94714-66-6196Jigipmx79897012 2.16.840.1.987506.3.579.2.11897-62-0704Zptbafm52997145 2.16.840.1.169036.3.579.2.84053-85-7654Udzqsji94332935 2.16.840.1.727346.3.579.2.21486-42-7345Ykadrig57921088 2.16.840.1.475403.3.579.2.89868-87-2228Dazndtd31682615 2.16.840.1.521575.3.579.2.53174-42-7523Xhmijsn76479528 2.16.840.1.709406.3.579.2.67444-86-7008Vnxmyyo51527088 2.16.840.1.068503.3.579.2.72660-19-7699Rbhdsdg13552868 2.16.840.1.129146.3.579.2.57420-73-4897Zchzssi33069170 2.16.840.1.484959.3.579.2.04092-55-3029Iymjdnm50407709 2.16.840.1.480595.3.579.2.06546-77-3708Lmutmyv93657188 2.16.840.1.743559.3.579.2.78490-00-8491Ojpewen59567915 2.16.840.1.900674.3.579.2.04820-41-4093Nkwceat34661141 2.16.840.1.754980.3.579.2.15337-54-9067Zyvjfby16459347 2.16.840.1.273452.3.579.2.31767-88-9044Qhxuago64976114 2.16.840.1.282478.3.579.2.73671-01-6245Axieoim80795405 2.16.840.1.096753.3.579.2.093283-31-2788Evplntv24867934 2.16.840.1.025569.3.579.2.231586-38-4184Uytpzsz82783291 2.16.840.1.152837.3.579.2.178529-24-7420Coufacs82807089 2.16.840.1.052225.3.579.2.825246-19-6698Qjivuav82352626 2.16.840.1.025308.3.579.2.678614-34-4272Cjlebbh8248869 2.840.1.573670.3.579.2.407188-10-3787Vomboqp4268220 2.840.1.502813.3.579.2.636705-36-3378Umbhoic5918291 2.840.1.886857.3.579.2.079613-39-0529Eemombp1710369 2.840.1.266307.3.579.2.925662-31-0396Myzjrsz7458036 2.840.1.510666.3.579.2.375279-35-9521Lwertoz2795344 2.840.1.576048.3.579.2.305871-27-0294Oxikzbg2156088 2.840.1.335189.3.579.2.922278-11-5779Yvjepkf2659563 2.840.1.904356.3.579.2.612150-95-0392Asyydfb3694777 2.16.840.1.983204.3.579.2.294201-78-3872Tkqzkgd36603464 2.16840.1.758321.3.579.2.41262-80-2714Hgzhgfc89092834 2..840.1.634404.3.579.2.94402-94-6664Cbhuekx55341783 2..840.1.705414.3.5[id number] ..840.1.368983.3.579.2.531 Social History DateTypeDetailFacilityStart: 12-28-2021 End: 94-02-7818Sftgcbv smoking statusNever smoked tobacco (finding)[facility] Start: 05-98-0444Rtvwtyw smoking statusNeGerman [facility] Start: 09-06-2023 End: 56-94-1610[facility] Start: 73-11-1704Rqg [facility]: 43-40-7005Fxmfiwt use and exposureSmokeless tobacco non-userNOMS HealthcareStart: 09-06-2023 End: 87-81-6430Aehcfee intakeLifetime non-drinker (finding)[facility] HealthcareStart: 09-06-2023 End: 64-92-4148Vrtyodz of Social functionNOMS HealthcareStart: 07-66-8035Twjhdwy Commentcaffeine 1-2 cups per dayNOMS HealthcareStart: 06-15-5605Kil Assigned At BirthNot on fileNOMS HealthcareStart: 00-97-0800Rogdjif intakeCurrent non- drinker of alcohol (finding)[facility] Start: 62-50-8970XtuHtqq (finding)[facility]How [facility] is it for you to [facility] [...] months, were you homeless or living in long-term [including now]?NoN[facility]S [facility] Medical Equipment Procedure CodeEquipment CodeEquipment Original TextEquipment IdentifierDates Glucometer test strips, See Instructions, 100 strip(s), 11, Test TID DX E11.40 on insulin, [facility] #[id number], Supply, 182, cm, 10/01/21 10:14:00 EST, Height/Length Dosing, 131.2, kg, 10/01/21 10:14:00 EST, Weight DosingStart: 66-52-9288aexlocg, See Instructions, 100 EA, 11, test blood sugar tid dx E11.9 on insulin, [facility] #[id number], Supply, 182, cm, 10/01/21 10:14:00 EST, Height/Length Dosing, 131.2, kg, 10/01/21 10:14:00 EST, Weight DosingStart: 72-47-8908Ztygwosrxy test strips, See Instructions, 100 strip(s), 11, Test TID DX E11.40 on insulin, [facility] #[id number], Supply, 182, cm, 10/01/21 10:14:00 EST, Height/Length Dosing, 131.2, kg, 10/01/21 10:14:00 EST, Weight DosingStart: 37-31-2469hcoydvx, See Instructions, 100 EA, 11, test blood sugar tid dx E11.9 on insulin, [facility] #03892, Supply, 182, cm, 10/01/21 10:14:00 EST, Height/Length Dosing, 131.2, kg, 10/01/21 10:14:00 EST, Weight DosingStart: 06-84-7320Ikmfermemf test strips, See Instructions, 100 strip(s), 11, Test TID DX E11.40 on insulin, [facility] #[id number], Supply, 182, cm, 10/01/21 10:14:00 EST, Height/Length Dosing, 131.2, kg, 10/01/21 10:14:00 EST, Weight DosingStart: 91-56-4498wwibrar, See Instructions, 100 EA, 11, test blood sugar tid dx E11.9 on insulin, [facility] #12088, Supply, 182, cm, 10/01/21 10:14:00 EST, Height/Length Dosing, 131.2, kg, 10/01/21 10:14:00 EST, Weight DosingStart: 58-36-3751Zywcdgysbr test strips, See Instructions, 100 strip(s), 11, Test TID DX E11.40 on insulin, [facility] #05633, Supply, 182, cm, 10/01/21 10:14:00 EST, Height/Length Dosing, 131.2, kg, 2 10:14:00 EST, Weight DosingStart: 60-15-5107pmqqywq, See Instructions, 100 EA, 11, test blood sugar tid dx E11.9 on insulin, [facility] #60728, Supply, 182, cm, 10/01/21 10:14:00 EST, Height/Length Dosing, 131.2, kg, 10/01/21 10:14:00 EST, Weight DosingStart: 57-42-5245Xuwkbnvrqu test strips, See Instructions, 100 strip(s), 11, Test TID DX E11.40 on insulin, [facility] #14280, Supply, 182, cm, 10/01/21 10:14:00 EST, Height/Length Dosing, 131.2, kg, 10/01/21 10:14:00 EST, Weight DosingStart: 74-92-9653mktfcqb, See Instructions, 100 EA, 11, test blood sugar tid dx E11.9 on insulin, [facility] #72197, Supply, 182, cm, 10/01/21 10:14:00 EST, Height/Length Dosing, 131.2, kg, 10/01/21 10:14:00 EST, Weight DosingStart: 79-94-6097Nbmpgisjmt test strips, See Instructions, 100 strip(s), 11, Test TID DX E11.40 on insulin, [facility] #74151, Supply, 182, cm, 10/01/21 10:14:00 EST, Height/Length Dosing, 131.2, kg, 10/01/21 10:14:00 EST, Weight DosingStart: 02-73-3127lylflvp, See Instructions, 100 EA, 11, test blood sugar tid dx E11.9 on insulin, [facility] #48492, Supply, 182, cm, 10/01/21 10:14:00 EST, Height/Length Dosing, 131.2, kg, 10/01/21 10:14:00 EST, Weight DosingStart: 71-56-8336Autatmwwal test strips, See Instructions, 100 strip(s), 11, Test TID DX E11.40 on insulin, [facility]#[id number], Supply, 182, cm, 09/13/22 13:17:00 EST, Height/Length Dosing, 140.8, kg, 09/13/22 13:17:00 EST, Weight DosingStart: 73-22-7706Nzfkeuc Pen Dexter 31g x 8 mm, See Instructions, 450 EA, 4, Use up to 4 daily, [facility] #68273, Supply, 182, cm, 09/13/22 13:17:00 EST, Height/Length Dosing, 140.8, kg, 09/13/22 13:17:00 EST, WeightDosingStart: 09-05-8723fljswec, See Instructions, 100 EA, 11, test blood sugar tid dx E11.9 on insulin, [facility] #70452, Supply, 182, cm, 10/01/21 10:14:00 EST, Height/Length Dosing, 131.2, kg, 10/01/21 10:14:00 EST, Weight DosingStart: 88-66-0929Vfiojelmss test strips, See Instructions, 100 strip(s), 11, Test TID DX E11.40 on insulin, [facility]#[id number], Supply, 182, cm, 09/13/22 13:17:00 EST, Height/Length Dosing, 140.8, kg, 09/13/22 13:17:00 EST, Weight DosingStart: 27-54-9415Nckfmlo Pen Dexter 31g x 8 mm, See Instructions, 450 EA, 4, Use up to 4 daily, [facility] #[id number], Supply, 182, cm, 09/13/22 13:17:00 EST, Height/Length Dosing, 140.8, kg, 09/13/22 13:17:00 EST, WeightDosingStart: 12-74-0255ivfbixw, See Instructions, 100 EA, 11, test blood sugar tid dx E11.9 on insulin, [facility] #68333, Supply, 182, cm, 10/01/21 10:14:00 EST, Height/Length Dosing, 131.2, kg, 10/01/21 10:14:00 EST, Weight DosingStart: 81-77-5724Vpdbpjldtt test strips, See Instructions, 100 strip(s), 11, Test TID DX E11.40 on insulin, [facility]#[id number], Supply, 182, cm, 09/13/22 13:17:00 EST, Height/Length Dosing, 140.8, kg, 09/13/22 13:17:00 EST, Weight DosingStart: 28-24-6136Ymclfnt Pen Dexter 31g x 8 mm, See Instructions, 450 EA, 4, Use up to 4 daily, [facility] #98213, Supply, 182, cm, 09/13/22 13:17:00 EST, Height/Length Dosing, 140.8, kg, 09/13/22 13:17:00 EST, WeightDosingStart: 45-77-3335wyaqgmz, See Instructions, 100 EA, 11, test blood sugar tid dx E11.9 on insulin, [facility] #99265, Supply, 182, cm, 10/01/21 10:14:00 EST, Height/Length Dosing, 131.2, kg, 10/01/21 10:14:00 EST, Weight DosingStart: 53-65-1751Khfucovxht test strips, See Instructions, 100 strip(s), 11, Test TID DX E11.40 on insulin, [facility]#[id number], Supply, 182, cm, 09/13/22 13:17:00 EST, Height/Length Dosing, 140.8, kg, 09/13/22 13:17:00 EST, Weight DosingStart: 91-28-1086Lpvzqmy Pen Dexter 31g x 8 mm, See Instructions, 450 EA, 4, Use up to 4 daily, [facility] #74174, Supply, 182, cm, 09/13/22 13:17:00 EST, Height/Length Dosing, 140.8, kg, 09/13/22 13:17:00 EST, WeightDosingStart: 33-04-3976bntmnpm, See Instructions, 100 EA, 11, test blood sugar tid dx E11.9 on insulin, [facility] #33807, Supply, 182, cm, 09/13/22 13:17:00 EST, Height/Length Dosing, 140.8, kg, 09/13/22 13:17:00 EST, Weight DosingStart: 30-63-9548Uvophetxwf test strips, See Instructions, 100 strip(s), 11, Test TID DX E11.40 on insulin, [facility]#39099, Supply, 182, cm, 09/13/22 13:17:00 EST, Height/Length Dosing, 140.8, kg, 09/13/22 13:17:00 EST, Weight DosingStart: 90-27-2929Wydbtbi Pen Dexter 31g x 8 mm, See Instructions, 450 EA, 4, Use up to 4 daily, [facility] #90448, Supply, 182, cm, 09/13/22 13:17:00 EST, Height/Length Dosing, 140.8, kg, 09/13/22 13:17:00 EST, WeightDosingStart: 22-29-5486hiefrvm, See Instructions, 100 EA, 11, test blood sugar tid dx E11.9 on insulin, [facility] #62366, Supply, 182, cm, 09/13/22 13:17:00 EST, Height/Length Dosing, 140.8, kg, 09/13/22 13:17:00 EST, Weight DosingStart: 40-79-4328Khwcwvrkdu test strips, See Instructions, 100 strip(s), 11, Test TID DX E11.40 on insulin, [facility]#97059, Supply, 182, cm, 09/13/22 13:17:00 EST, Height/Length Dosing, 140.8, kg, 09/13/22 13:17:00 EST, Weight DosingStart: 36-01-7775Qyolzax Pen Dexter 31g x 8 mm, See Instructions, 450 EA, 4, Use up to 4 daily, [facility] #08224, Supply, 182, cm, 09/13/22 13:17:00 EST, Height/Length Dosing, 140.8, kg, 09/13/22 13:17:00 EST, Weight DosingStart: 00-84-2096oivueeg, See Instructions, 100 EA, 11, test blood sugar tid dx E11.9 on insulin, [facility] #77025, Supply, 182, cm, 09/13/22 13:17:00 EST, Height/Length Dosing, 140.8, kg, 09/13/22 13:17:00 EST, Weight DosingStart: 97-77-9569Eptvrnineq test strips, See Instructions, 100 strip(s), 11, Test TID DX E11.40 on insulin, [facility]#49539, Supply, 182, cm, 09/13/22 13:17:00 EST, Height/Length Dosing, 140.8, kg, 09/13/22 13:17:00 EST, Weight DosingStart: 03-28-1785Wlpwvif Pen Dexter 31g x 8 mm, See Instructions, 450 EA, 4, Use up to 4 daily, [facility] #66764, Supply, 182, cm, 09/13/22 13:17:00 EST, Height/Length Dosing, 140.8, kg, 09/13/22 13:17:00 EST, WeightDosingStart: 10-68-1542eqscwlk, See Instructions, 100 EA, 11, test blood sugar tid dx E11.9 on insulin, [facility] #99528, Supply, 182, cm, 09/13/22 13:17:00 EST, Height/Length Dosing, 140.8, kg, 09/13/22 13:17:00 EST, Weight DosingStart: 86-92-9265Lpquaeupwp test strips, See Instructions, 100 strip(s), 11, Test TID DX E11.40 on insulin, [facility]#56837, Supply, 182, cm, 09/13/22 13:17:00 EST, Height/Length Dosing, 140.8, kg, 09/13/22 13:17:00 EST, Weight DosingStart: 26-45-9002Ogxonla Pen Dexter 31g x 8 mm, See Instructions, 450 EA, 4, Use up to 4 daily, [facility] #21071, Supply, 182, cm, 09/13/22 13:17:00 EST, Height/Length Dosing, 140.8, kg, 09/13/22 13:17:00 EST, WeightDosingStart: 67-82-4419fknokdv, See Instructions, 100 EA, 11, test blood sugar tid dx E11.9 on insulin, [facility] #19613, Supply, 182, cm, 09/13/22 13:17:00 EST, Height/Length Dosing, 140.8, kg, 09/13/22 13:17:00 EST, Weight DosingStart: 29-63-4619Zzpvvpkonx test strips, See Instructions, 100 strip(s), 11, Test TID DX E11.40 on insulin, [facility]#52357, Supply, 182, cm, 09/13/22 13:17:00 EST, Height/Length Dosing, 140.8, kg, 09/13/22 13:17:00 EST, Weight DosingStart: 86-54-5714Jtduvof Pen Dexter 31g x 8 mm, See Instructions, 450 EA, 4, Use up to 4 daily, [facility] #18042, Supply, 182, cm, 09/13/22 13:17:00 EST, Height/Length Dosing, 140.8, kg, 09/13/22 13:17:00 EST, Weight DosingStart: 85-73-7752ekxzsoh, See Instructions, 100 EA, 11, test blood sugar tid dx E11.9 on insulin, [facility] #89599, Supply, 182, cm, 09/13/22 13:17:00 EST, Height/Length Dosing, 140.8, kg, 09/13/22 13:17:00 EST, Weight DosingStart: 63-70-0216Yjarqwrnmr test strips, See Instructions, 100 strip(s), 11, Test TID DX E11.40 on insulin, [facility]#81240, Supply, 182, cm, 09/13/22 13:17:00 EST, Height/Length Dosing, 140.8, kg, 09/13/22 13:17:00 EST, Weight DosingStart: 79-25-0704Yuryukr Pen Dexter 31g x 8 mm, See Instructions, 450 EA, 4, Use up to 4 daily, [facility] #00257, Supply, 182, cm, 09/13/22 13:17:00 EST, Height/Length Dosing, 140.8, kg, 09/13/22 13:17:00 EST, WeightDosingStart: 58-56-3139dcjpjib, See Instructions, 100 EA, 11, test blood sugar tid dx E11.9 on insulin, [facility] #45172, Supply, 182, cm, 09/13/22 13:17:00 EST, Height/Length Dosing, 140.8, kg, 09/13/22 13:17:00 EST, Weight DosingStart: 34-77-6052Piswidosdg test strips, See Instructions, 100 strip(s), 11, Test TID DX E11.40 on insulin, [facility]#63254, Supply, 182, cm, 09/13/22 13:17:00 EST, Height/Length Dosing, 140.8, kg, 09/13/22 13:17:00 EST, Weight DosingStart: 17-84-3386Ayvozzn Pen Dexter 31g x 8 mm, See Instructions, 450 EA, 4, Use up to 4 daily, [facility] #[id number], Supply, 182, cm, 09/13/22 13:17:00 EST, Height/Length Dosing, 140.8, kg, 09/13/22 13:17:00 EST, WeightDosingStart: 56-54-0263qkpojhk, See Instructions, 100 EA, 11, test blood sugar tid dx E11.9 on insulin, [facility] #[id number], Supply, 182, cm, 09/13/22 13:17:00 EST, Height/Length Dosing, 140.8, kg, 09/13/22 13:17:00 EST, Weight DosingStart: 83-79-0289Udpdykesbs test strips, See Instructions, 100 strip(s), 11, Test TID DX E11.40 on insulin, [facility]#[id number], Supply, 182, cm, 09/13/22 13:17:00 EST, Height/Length Dosing, 140.8, kg, 09/13/22 13:17:00 EST, Weight DosingStart: 19-71-1098Zrxhrym Pen Dexter 31g x 8 mm, See Instructions, 450 EA, 4, Use up to 4 daily, [facility] #[id number], Supply, 182, cm, 09/13/22 13:17:00 EST, Height/Length Dosing, 140.8, kg, 09/13/22 13:17:00 EST, Weight DosingStart: 03-59-2937wsrtcpp, See Instructions, 100 EA, 11, test blood sugar tid dx E11.9 on insulin, [facility] #[id number], Supply, 182, cm, 09/13/22 13:17:00 EST, Height/Length Dosing, 140.8, kg, 09/13/22 13:17:00 EST, Weight DosingStart: 96-77-8698Ititbzegnn test strips, See Instructions, 100 strip(s), 11, Test TID DX E11.40 on insulin, [facility]#[id number], Supply, 182, cm, 09/13/22 13:17:00 EST, Height/Length Dosing, 140.8, kg, 09/13/22 13:17:00 EST, Weight DosingStart: 03-40-0496Hjeyhdo Pen Dexter 31g x 8 mm, See Instructions, 450 EA, 4, Use up to 4 daily, [facility] #[id number], Supply, 182, cm, 05/22/23 13:30:00 EDT, Height/Length Dosing, 139.6, kg, 05/22/23 13:30:00 EDT, WeightDosingStart: 39-97-8924utqpsfk, See Instructions, 100 EA, 11, test blood sugar tid dx E11.9 on insulin, [facility] #[id number], Supply, 182, cm, 09/13/22 13:17:00 EST, Height/Length Dosing, 140.8, kg, 09/13/22 13:17:00 EST, Weight DosingStart: 31-48-7898Asbigaurwh test strips, See Instructions, 100 strip(s), 11, Test TID DX E11.40 on insulin, [facility]#[id number], Supply, 182, cm, 09/13/22 13:17:00 EST, Height/Length Dosing, 140.8, kg, 09/13/22 13:17:00 EST, Weight DosingStart: 23-12-4096Ogzlpmo Pen Dexter 31g x 8 mm, See Instructions, 450 EA, 4, Use up to 4 daily, [facility] #[id number], Supply, 182, cm, 05/22/23 13:30:00 EDT, Height/Length Dosing, 139.6, kg, 05/22/23 13:30:00 EDT, WeightDosingStart: 16-19-4007qzvbzoi, See Instructions, 100 EA, 11, test blood sugar tid dx E11.9 on insulin, [facility] #[id number], Supply, 182, cm, 09/13/22 13:17:00 EST, Height/Length Dosing, 140.8, kg, 09/13/22 13:17:00 EST, Weight DosingStart: 06-57-8291Hgprcnypex test strips, See Instructions, 100 strip(s), 11, Test TID DX E11.40 on insulin, [facility]#[id number], Supply, 182, cm, 09/13/22 13:17:00 EST, Height/Length Dosing, 140.8, kg, 09/13/22 13:17:00 EST, Weight DosingStart: 63-07-9505Rstkdor Pen Dexter 31g x 8 mm, See Instructions, 450 EA, 4, Use up to 4 daily, [facility] #[id number], Supply, 182, cm, 05/22/23 13:30:00 EDT, Height/Length Dosing, 139.6, kg, 05/22/23 13:30:00 EDT, Weight DosingStart: 53-48-9213gfwonvo, See Instructions, 100 EA, 11, test blood sugar tid dx E11.9 on insulin, [facility] #[id number], Supply, 182, cm, 09/13/22 13:17:00 EST, Height/Length Dosing, 140.8, kg, 09/13/22 13:17:00 EST, Weight DosingStart: 05-14-6423Yopbiemofq test strips, See Instructions, 100 strip(s), 11, Test TID DX E11.40 on insulin, [facility]#[id number], Supply, 182, cm, 09/13/22 13:17:00 EST, Height/Length Dosing, 140.8, kg, 09/13/22 13:17:00 EST, Weight DosingStart: 40-41-0283Kuzweqg Pen Dexter 31g x 8 mm, See Instructions, 450 EA, 4, Use up to 4 daily, [facility] #[id number], Supply, 182, cm, 05/22/23 13:30:00 EDT, Height/Length Dosing, 139.6, kg, 05/22/23 13:30:00 EDT, WeightDosingStart: 74-44-1322ghuzbuv, See Instructions, 100 EA, 11, test blood sugar tid dx E11.9 on insulin, [facility] #[id number], Supply, 182, cm, 09/13/22 13:17:00 EST, Height/Length Dosing, 140.8, kg, 09/13/22 13:17:00 EST, Weight DosingStart: 31-23-2836Srgbhnmiux test strips, See Instructions, 100 strip(s), 11, Test TID DX E11.40 on insulin, [facility]#[id number], Supply, 182, cm, 09/13/22 13:17:00 EST, Height/Length Dosing, 140.8, kg, 09/13/22 13:17:00 EST, Weight DosingStart: 61-46-3185Tfukyen Pen Dexter 31g x 8 mm, See Instructions, 450 EA, 4, Use up to 4 daily, [facility] #[id number], Supply, 182, cm, 05/22/23 13:30:00 EDT, Height/Length Dosing, 139.6, kg, 05/22/23 13:30:00 EDT, WeightDosingStart: 08-45-3566bjgybpt, See Instructions, 100 EA, 11, test blood sugar tid dx E11.9 on insulin, [facility] #[id number], Supply, 182, cm, 09/13/22 13:17:00 EST, Height/Length Dosing, 140.8, kg, 09/13/22 13:17:00 EST, Weight DosingStart: 31-82-3512Utqbdagvjg test strips, See Instructions, 100 strip(s), 11, Test TID DX E11.40 on insulin, [facility]#[id number], Supply, 182, cm, 09/13/22 13:17:00 EST, Height/Length Dosing, 140.8, kg, 09/13/22 13:17:00 EST, Weight DosingStart: 07-78-7135Vnuzqfz Pen Dexter 31g x 8 mm, See Instructions, 450 EA, 4, Use up to 4 daily, [facility] #[id number], Supply, 182, cm, 05/22/23 13:30:00 EDT, Height/Length Dosing, 139.6, kg, 05/22/23 13:30:00 EDT, Weight DosingStart: 77-49-8974wkdqztn, See Instructions, 100 EA, 11, test blood sugar tid dx E11.9 on insulin, [facility] #[id number], Supply, 182, cm, 09/13/22 13:17:00 EST, Height/Length Dosing, 140.8, kg, 09/13/22 13:17:00 EST, Weight DosingStart: 54-63-4303Jxrdknvljc test strips, See Instructions, 100 strip(s), 11, Test TID DX E11.40 on insulin, [facility]#[id number], Supply, 182, cm, 09/13/22 13:17:00 EST, Height/Length Dosing, 140.8, kg, 09/13/22 13:17:00 EST, Weight DosingStart: 91-99-5925Ibrkzkp Pen Dexter 31g x 8 mm, See Instructions, 450 EA, 4, Use up to 4 daily, [facility] #[id number], Supply, 182, cm, 05/22/23 13:30:00 EDT, Height/Length Dosing, 139.6, kg, 05/22/23 13:30:00 EDT, WeightDosingStart: 04-45-2411blibwpt, See Instructions, 100 EA, 11, test blood sugar tid dx E11.9 on insulin, [facility] #[id number], Supply, 182, cm, 09/13/22 13:17:00 EST, Height/Length Dosing, 140.8, kg, 09/13/22 13:17:00 EST, Weight DosingStart: 56-96-9768Iewlyzuiri test strips, See Instructions, 100 strip(s), 11, Test TID DX E11.40 on insulin, [facility]#[id number], Supply, 182, cm, 09/13/22 13:17:00 EST, Height/Length Dosing, 140.8, kg, 09/13/22 13:17:00 EST, Weight DosingStart: 69-49-1791Yptnnaw Pen Dexter 31g x 8 mm, See Instructions, 450 EA, 4, Use up to 4 daily, [facility] #[id number], Supply, 182, cm, 05/22/23 13:30:00 EDT, Height/Length Dosing, 139.6, kg, 05/22/23 13:30:00 EDT, WeightDosingStart: 06-86-5767yuicfuh, See Instructions, 100 EA, 11, test blood sugar tid dx E11.9 on insulin, [facility] #[id number], Supply, 182, cm, 09/13/22 13:17:00 EST, Height/Length Dosing, 140.8, kg, 09/13/22 13:17:00 EST, Weight DosingStart: 33-09-3088Jtdwoncxda test strips, See Instructions, 100 strip(s), 11, Test TID DX E11.40 on insulin, [facility]#[id number], Supply, 182, cm, 09/13/22 13:17:00 EST, Height/Length Dosing, 140.8, kg, 09/13/22 13:17:00 EST, Weight DosingStart: 09-83-7033Vjpjsti Pen Dexter 31g x 8 mm, See Instructions, 450 EA, 4, Use up to 4 daily, [facility] #[id number], Supply, 182, cm, 05/22/23 13:30:00 EDT, Height/Length Dosing, 139.6, kg, 05/22/23 13:30:00 EDT, Weight DosingStart: 78-77-1961lypermb, See Instructions, 100 EA, 11, test blood sugar tid dx E11.9 on insulin, [facility] #[id number], Supply, 182, cm, 09/13/22 13:17:00 EST, Height/Length Dosing, 140.8, kg, 09/13/22 13:17:00 EST, Weight DosingStart: 33-07-0625Skbdlrsuwl test strips, See Instructions, 100 strip(s), 11, Test TID DX E11.40 on insulin, [facility]#[id number], Supply, 182, cm, 09/13/22 13:17:00 EST, Height/Length Dosing, 140.8, kg, 09/13/22 13:17:00 EST, Weight DosingStart: 07-49-2477Ocnxbrg Pen Dexter 31g x 8 mm, See Instructions, 450 EA, 4, Use up to 4 daily, [facility] #[id number], Supply, 182, cm, 05/22/23 13:30:00 EDT, Height/Length Dosing, 139.6, kg, 05/22/23 13:30:00 EDT, WeightDosingStart: 14-30-2661uduonij, See Instructions, 100 EA, 11, test blood sugar tid dx E11.9 on insulin, [facility] #[id number], Supply, 182, cm, 09/13/22 13:17:00 EST, Height/Length Dosing, 140.8, kg, 09/13/22 13:17:00 EST, Weight DosingStart: 36-03-0251Flnctisscb test strips, See Instructions, 100 strip(s), 11, Test TID DX E11.40 on insulin, [facility]#[id number], Supply, 182, cm, 09/13/22 13:17:00 EST, Height/Length Dosing, 140.8, kg, 09/13/22 13:17:00 EST, Weight DosingStart: 86-94-4952Eidboms Pen Dexter 31g x 8 mm, See Instructions, 450 EA, 4, Use up to 4 daily, [facility] #[id number], Supply, 182, cm, 05/22/23 13:30:00 EDT, Height/Length Dosing, 139.6, kg, 05/22/23 13:30:00 EDT, WeightDosingStart: 37-17-4591ftvdviw, See Instructions, 100 EA, 11, test blood sugar tid dx E11.9 on insulin, [facility] #[id number], Supply, 182, cm, 09/13/22 13:17:00 EST, Height/Length Dosing, 140.8, kg, 09/13/22 13:17:00 EST, Weight DosingStart: 61-83-4842Lixaoqgosu test strips, See Instructions, 100 strip(s), 11, Test TID DX E11.40 on insulin, [facility]#[id number], Supply, 182, cm, 09/13/22 13:17:00 EST, Height/Length Dosing, 140.8, kg, 09/13/22 13:17:00 EST, Weight DosingStart: 05-52-1213Qrrsgvp Pen Dexter 31g x 8 mm, See Instructions, 450 EA, 4, Use up to 4 daily, [facility] #24129, Supply, 182, cm, 05/22/23 13:30:00 EDT, Height/Length Dosing, 139.6, kg, 05/22/23 13:30:00 EDT, Weight DosingStart: 01-31-0020angymom, See Instructions, 100 EA, 11, test blood sugar tid dx E11.9 on insulin, [facility] #[id number], Supply, 182, cm, 09/13/22 13:17:00 EST, Height/Length Dosing, 140.8, kg, 09/13/22 13:17:00 EST, Weight DosingStart: 48-22-3966Evgbhsgvgg test strips, See Instructions, 100 strip(s), 11, Test TID DX E11.40 on insulin, [facility]#[id number], Supply, 182, cm, 09/13/22 13:17:00 EST, Height/Length Dosing, 140.8, kg, 09/13/22 13:17:00 EST, Weight DosingStart: 62-70-1133Mcbjpwn Pen Dexter 31g x 8 mm, See Instructions, 450 EA, 4, Use up to 4 daily, [facility] #75502, Supply, 182, cm, 05/22/23 13:30:00 EDT, Height/Length Dosing, 139.6, kg, 05/22/23 13:30:00 EDT, WeightDosingStart: 16-15-0313iefccii, See Instructions, 100 EA, 11, test blood sugar tid dx E11.9 on insulin, [facility] #[id number], Supply, 182, cm, 09/13/22 13:17:00 EST, Height/Length Dosing, 140.8, kg, 09/13/22 13:17:00 EST, Weight DosingStart: 69-59-3704Dznwslmofm test strips, See Instructions, 100 strip(s), 11, Test TID DX E11.40 on insulin, [facility]#49572, Supply, 182, cm, 09/13/22 13:17:00 EST, Height/Length Dosing, 140.8, kg, 09/13/22 13:17:00 EST, Weight DosingStart: 75-40-3732Bvcqrcp Pen Dexter 31g x 8 mm, See Instructions, 450 EA, 4, Use up to 4 daily, [facility] #70663, Supply, 182, cm, 05/22/23 13:30:00 EDT, Height/Length Dosing, 139.6, kg, 05/22/23 13:30:00 EDT, WeightDosingStart: 53-68-3418gnyjvyi, See Instructions, 100 EA, 11, test blood sugar tid dx E11.9 on insulin, [facility] #[id number], Supply, 182, cm, 09/13/22 13:17:00 EST, Height/Length Dosing, 140.8, kg, 09/13/22 13:17:00 EST, Weight DosingStart: 85-07-7214Mxklbovdcf test strips, See Instructions, 100 strip(s), 11, Test TID DX E11.40 on insulin, [facility]#[id number], Supply, 182, cm, 09/13/22 13:17:00 EST, Height/Length Dosing, 140.8, kg, 09/13/22 13:17:00 EST, Weight DosingStart: 16-94-3831Zaxmgem Pen Dexter 31g x 8 mm, See Instructions, 450 EA, 4, Use up to 4 daily, [facility] #54400, Supply, 182, cm, 05/22/23 13:30:00 EDT, Height/Length Dosing, 139.6, kg, 05/22/23 13:30:00 EDT, Weight DosingStart: 02-63-5876flpkpqv, See Instructions, 100 EA, 11, test blood sugar tid dx E11.9 on insulin, [facility] #[id number], Supply, 182, cm, 09/13/22 13:17:00 EST, Height/Length Dosing, 140.8, kg, 09/13/22 13:17:00 EST, Weight DosingStart: 52-09-0177Ggptmaugva test strips, See Instructions, 100 strip(s), 11, Test TID DX E11.40 on insulin, [facility]#[id number], Supply, 180, cm, 09/12/23 13:35:00 EST, Height/Length Dosing, 149.8, kg, 09/12/23 13:35:00 EST, Weight DosingStart: 19-30-7208Qghtjcj Pen Dexter 31g x 8 mm, See Instructions, 450 EA, 4, Use up to 4 daily, [facility] #[id number], Supply, 180, cm, 09/12/23 13:35:00 EST, Height/Length Dosing, 149.8, kg, 09/12/23 13:35:00 EST, WeightDosingStart: 62-84-3225enzdyzx, See Instructions, 100 EA, 11, test blood sugar tid dx E11.9 on insulin, [facility] #[id number], Supply, 180, cm, 09/12/23 13:35:00 EST, Height/Length Dosing, 149.8, kg, 09/12/23 13:35:00 EST, Weight DosingStart: 30-33-8330Igfcqnwjmr test strips, See Instructions, 100 strip(s), 11, Test TID DX E11.40 on insulin, [facility]#88863, Supply, 180, cm, 09/12/23 13:35:00 EST, Height/Length Dosing, 149.8, kg, 09/12/23 13:35:00 EST, Weight DosingStart: 24-43-2590Kskczwo Pen Dexter 31g x 8 mm, See Instructions, 450 EA, 4, Use up to 4 daily, [facility] #88758, Supply, 180, cm, 09/12/23 13:35:00 EST, Height/Length Dosing, 149.8, kg, 09/12/23 13:35:00 EST, WeightDosingStart: 40-03-7687grmqdvr, See Instructions, 100 EA, 11, test blood sugar tid dx E11.9 on insulin, [facility] #[id number], Supply, 180, cm, 09/12/23 13:35:00 EST, Height/Length Dosing, 149.8, kg, 09/12/23 13:35:00 EST, Weight DosingStart: 87-36-0183Zhnzcwcjlo test strips, See Instructions, 100 strip(s), 11, Test TID DX E11.40 on insulin, [facility]#[id number], Supply, 180, cm, 09/12/23 13:35:00 EST, Height/Length Dosing, 149.8, kg, 09/12/23 13:35:00 EST, Weight DosingStart: 36-54-7703Szdilap Pen Dexter 31g x 8 mm, See Instructions, 450 EA, 4, Use up to 4 daily, [facility] #45877, Supply, 180, cm, 09/12/23 13:35:00 EST, Height/Length Dosing, 149.8, kg, 09/12/23 13:35:00 EST, Weight DosingStart: 39-30-2521iiahwli, See Instructions, 100 EA, 11, test blood sugar tid dx E11.9 on insulin, [facility] #57488, Supply, 180, cm, 09/12/23 13:35:00 EST, Height/Length Dosing, 149.8, kg, 09/12/23 13:35:00 EST, Weight DosingStart: 17-53-0976Upvujnuqaq test strips, See Instructions, 100 strip(s), 11, Test TID DX E11.40 on insulin, [facility]#[id number], Supply, 180, cm, 09/12/23 13:35:00 EST, Height/Length Dosing, 149.8, kg, 09/12/23 13:35:00 EST, Weight DosingStart: 11-90-9169Dykrgku Pen Dexter 31g x 8 mm, See Instructions, 450 EA, 4, Use up to 4 daily, [facility] #42960, Supply, 180, cm, 09/12/23 13:35:00 EST, Height/Length Dosing, 149.8, kg, 09/12/23 13:35:00 EST, WeightDosingStart: 91-33-2235mwbcsem, See Instructions, 100 EA, 11, test blood sugar tid dx E11.9 on insulin, [facility] #43205, Supply, 180, cm, 09/12/23 13:35:00 EST, Height/Length Dosing, 149.8, kg, 09/12/23 13:35:00 EST, Weight DosingStart: 73-46-9731Gmdxnmuztu test strips, See Instructions, 100 strip(s), 11, Test TID DX E11.40 on insulin, [facility]#[id number], Supply, 180, cm, 09/12/23 13:35:00 EST, Height/Length Dosing, 149.8, kg, 09/12/23 13:35:00 EST, Weight DosingStart: 08-98-8849Wuegpws Pen Dexter 31g x 8 mm, See Instructions, 450 EA, 4, Use up to 4 daily, [facility] #02573, Supply, 180, cm, 09/12/23 13:35:00 EST, Height/Length Dosing, 149.8, kg, 09/12/23 13:35:00 EST, WeightDosingStart: 53-46-5160gatuacv, See Instructions, 100 EA, 11, test blood sugar tid dx E11.9 on insulin, [facility] #45239, Supply, 180, cm, 09/12/23 13:35:00 EST, Height/Length Dosing, 149.8, kg, 09/12/23 13:35:00 EST, Weight DosingStart: 88-76-7968Zvfkfuhxxl test strips, See Instructions, 100 strip(s), 11, Test TID DX E11.40 on insulin, [facility]#[id number], Supply, 180, cm, 09/12/23 13:35:00 EST, Height/Length Dosing, 149.8, kg, 09/12/23 13:35:00 EST, Weight DosingStart: 44-78-9634Thqywiy Pen Dexter 31g x 8 mm, See Instructions, 450 EA, 4, Use up to 4 daily, [facility] #24684, Supply, 180, cm, 09/12/23 13:35:00 EST, Height/Length Dosing, 149.8, kg, 09/12/23 13:35:00 EST, Weight DosingStart: 17-60-2885upgqbxi, See Instructions, 100 EA, 11, test blood sugar tid dx E11.9 on insulin, [facility] #[id number], Supply, 180, cm, 09/12/23 13:35:00 EST, Height/Length Dosing, 149.8, kg, 09/12/23 13:35:00 EST, Weight DosingStart: 42-70-3069Bbqnjdzdcu test strips, See Instructions, 100 strip(s), 11, Test TID DX E11.40 on insulin, [facility]#25857, Supply, 180, cm, 09/12/23 13:35:00 EST, Height/Length Dosing, 149.8, kg, 09/12/23 13:35:00 EST, Weight DosingStart: 68-27-6402Ojlowso Pen Dexter 31g x 8 mm, See Instructions, 450 EA, 4, Use up to 4 daily, [facility] #44036, Supply, 180, cm, 09/12/23 13:35:00 EST, Height/Length Dosing, 149.8, kg, 09/12/23 13:35:00 EST, WeightDosingStart: 67-58-9733jgpcszu, See Instructions, 100 EA, 11, test blood sugar tid dx E11.9 on insulin, [facility] #[id number], Supply, 180, cm, 09/12/23 13:35:00 EST, Height/Length Dosing, 149.8, kg, 09/12/23 13:35:00 EST, Weight DosingStart: 52-47-1755Hqwbkworac test strips, See Instructions, 100 strip(s), 11, Test TID DX E11.40 on insulin, [facility]#[id number], Supply, 180, cm, 09/12/23 13:35:00 EST, Height/Length Dosing, 149.8, kg, 09/12/23 13:35:00 EST, Weight DosingStart: 51-48-2992Pweuass Pen Dexter 31g x 8 mm, See Instructions, 450 EA, 4, Use up to 4 daily, [facility] #60145, Supply, 180, cm, 09/12/23 13:35:00 EST, Height/Length Dosing, 149.8, kg, 09/12/23 13:35:00 EST, WeightDosingStart: 30-78-2177gccccce, See Instructions, 100 EA, 11, test blood sugar tid dx E11.9 on insulin, [facility] #[id number], Supply, 180, cm, 09/12/23 13:35:00 EST, Height/Length Dosing, 149.8, kg, 09/12/23 13:35:00 EST, Weight DosingStart: 76-55-2434Mvchfkzner test strips, See Instructions, 100 strip(s), 11, Test TID DX E11.40 on insulin, [facility]#[id number], Supply, 180, cm, 09/12/23 13:35:00 EST, Height/Length Dosing, 149.8, kg, 09/12/23 13:35:00 EST, Weight DosingStart: 86-59-7356Yhzzdnn Pen Dexter 31g x 8 mm, See Instructions, 450 EA, 4, Use up to 4 daily, [facility] #96887, Supply, 180, cm, 09/12/23 13:35:00 EST, Height/Length Dosing, 149.8, kg, 09/12/23 13:35:00 EST, Weight DosingStart: 58-96-3877zqhdzdp, See Instructions, 100 EA, 11, test blood sugar tid dx E11.9 on insulin, [facility] #[id number], Supply, 180, cm, 09/12/23 13:35:00 EST, Height/Length Dosing, 149.8, kg, 09/12/23 13:35:00 EST, Weight DosingStart: 36-35-7337Tbppqlrayz test strips, See Instructions, 100 strip(s), 11, Test TID DX E11.40 on insulin, [facility]#09760, Supply, 180, cm, 09/12/23 13:35:00 EST, Height/Length Dosing, 149.8, kg, 09/12/23 13:35:00 EST, Weight DosingStart: 24-85-7986Bgfrdwj Pen Dexter 31g x 8 mm, See Instructions, 450 EA, 4, Use up to 4 daily, [facility] #70820, Supply, 180, cm, 09/12/23 13:35:00 EST, Height/Length Dosing, 149.8, kg, 09/12/23 13:35:00 EST, WeightDosingStart: 14-02-2479ldxhffc, See Instructions, 100 EA, 11, test blood sugar tid dx E11.9 on insulin, [facility] #77570, Supply, 180, cm, 09/12/23 13:35:00 EST, Height/Length Dosing, 149.8, kg, 09/12/23 13:35:00 EST, Weight DosingStart: 99-09-2397Sywefbtmoh test strips, See Instructions, 100 strip(s), 11, Test TID DX E11.40 on insulin, [facility]#07954, Supply, 180, cm, 09/12/23 13:35:00 EST, Height/Length Dosing, 149.8, kg, 09/12/23 13:35:00 EST, Weight DosingStart: 38-02-3356Bihhcda Pen Dexter 31g x 8 mm, See Instructions, 450 EA, 4, Use up to 4 daily, [facility] #26040, Supply, 180, cm, 09/12/23 13:35:00 EST, Height/Length Dosing, 149.8, kg, 09/12/23 13:35:00 EST, WeightDosingStart: 65-13-4870hfpkfnk, See Instructions, 100 EA, 11, test blood sugar tid dx E11.9 on insulin, [facility] #[id number], Supply, 180, cm, 09/12/23 13:35:00 EST, Height/Length Dosing, 149.8, kg, 09/12/23 13:35:00 EST, Weight DosingStart: 42-07-6225Gkuanarmbg test strips, See Instructions, 100 strip(s), 11, Test TID DX E11.40 on insulin, [facility]#93827, Supply, 180, cm, 09/12/23 13:35:00 EST, Height/Length Dosing, 149.8, kg, 09/12/23 13:35:00 EST, Weight DosingStart: 45-80-9480Fualnpt Pen Dexter 31g x 8 mm, See Instructions, 450 EA, 4, Use up to 4 daily, [facility] #50773, Supply, 180, cm, 09/12/23 13:35:00 EST, Height/Length Dosing, 149.8, kg, 09/12/23 13:35:00 EST, Weight DosingStart: 47-34-6313oizjccz, See Instructions, 100 EA, 11, test blood sugar tid dx E11.9 on insulin, [facility] #06793, Supply, 180, cm, 09/12/23 13:35:00 EST, Height/Length Dosing, 149.8, kg, 09/12/23 13:35:00 EST, Weight DosingStart: 97-82-7160Gajiyrdrrw test strips, See Instructions, 100 strip(s), 11, Test TID DX E11.40 on insulin, [facility]#[id number], Supply, 180, cm, 09/12/23 13:35:00 EST, Height/Length Dosing, 149.8, kg, 09/12/23 13:35:00 EST, Weight DosingStart: 83-31-5136Wkwddph Pen Dexter 31g x 8 mm, See Instructions, 450 EA, 4, Use up to 4 daily, [facility] #77862, Supply, 180, cm, 09/12/23 13:35:00 EST, Height/Length Dosing, 149.8, kg, 09/12/23 13:35:00 EST, WeightDosingStart: 48-16-1263ncdqccw, See Instructions, 100 EA, 11, test blood sugar tid dx E11.9 on insulin, [facility] #43236, Supply, 180, cm, 09/12/23 13:35:00 EST, Height/Length Dosing, 149.8, kg, 09/12/23 13:35:00 EST, Weight DosingStart: 61-51-0160Aqmnsdltzg test strips, See Instructions, 100 strip(s), 11, Test TID DX E11.40 on insulin, [facility]#[id number], Supply, 180, cm, 09/12/23 13:35:00 EST, Height/Length Dosing, 149.8, kg, 09/12/23 13:35:00 EST, Weight DosingStart: 57-89-1216Llnojxg Pen Dexter 31g x 8 mm, See Instructions, 450 EA, 4, Use up to 4 daily, [facility] #87442, Supply, 180, cm, 09/12/23 13:35:00 EST, Height/Length Dosing, 149.8, kg, 09/12/23 13:35:00 EST, WeightDosingStart: 07-38-5109ltutnnu, See Instructions, 100 EA, 11, test blood sugar tid dx E11.9 on insulin, [facility] #71773, Supply, 180, cm, 09/12/23 13:35:00 EST, Height/Length Dosing, 149.8, kg, 09/12/23 13:35:00 EST, Weight DosingStart: 68-02-7258Fnzskkrdmm test strips, See Instructions, 100 strip(s), 11, Test TID DX E11.40 on insulin, [facility]#[id number], Supply, 180, cm, 09/12/23 13:35:00 EST, Height/Length Dosing, 149.8, kg, 09/12/23 13:35:00 EST, Weight DosingStart: 76-57-3591Xxdztcs Pen Dexter 31g x 8 mm, See Instructions, 450 EA, 4, Use up to 4 daily, [facility] #39926, Supply, 180, cm, 09/12/23 13:35:00 EST, Height/Length Dosing, 149.8, kg, 09/12/23 13:35:00 EST, Weight DosingStart: 62-86-6334ixhnqzk, See Instructions, 100 EA, 11, test blood sugar tid dx E11.9 on insulin, [facility] #[id number], Supply, 180, cm, 09/12/23 13:35:00 EST, Height/Length Dosing, 149.8, kg, 09/12/23 13:35:00 EST, Weight DosingStart: 74-83-0691Oxgdylfazz test strips, See Instructions, 100 strip(s), 11, Test TID DX E11.40 on insulin, [facility]#80174, Supply, 180, cm, 09/12/23 13:35:00 EST, Height/Length Dosing, 149.8, kg, 09/12/23 13:35:00 EST, Weight DosingStart: 00-85-4876Pzwjbvs Pen Dexter 31g x 8 mm, See Instructions, 450 EA, 4, Use up to 4 daily, [facility] #94376, Supply, 180, cm, 09/12/23 13:35:00 EST, Height/Length Dosing, 149.8, kg, 09/12/23 13:35:00 EST, WeightDosingStart: 51-93-7457omjshwr, See Instructions, 100 EA, 11, test blood sugar tid dx E11.9 on insulin, [facility] #04329, Supply, 180, cm, 09/12/23 13:35:00 EST, Height/Length Dosing, 149.8, kg, 09/12/23 13:35:00 EST, Weight DosingStart: 20-28-2872Oatxhzxcrw test strips, See Instructions, 100 strip(s), 11, Test TID DX E11.40 on insulin, [facility]#[id number], Supply, 180, cm, 09/12/23 13:35:00 EST, Height/Length Dosing, 149.8, kg, 09/12/23 13:35:00 EST, Weight DosingStart: 44-35-7087Symflib Pen Dexter 31g x 8 mm, See Instructions, 450 EA, 4, Use up to 4 daily, [facility] #45548, Supply, 180, cm, 09/12/23 13:35:00 EST, Height/Length Dosing, 149.8, kg, 09/12/23 13:35:00 EST, WeightDosingStart: 50-70-5930tyaclst, See Instructions, 100 EA, 11, test blood sugar tid dx E11.9 on insulin, [facility] #65010, Supply, 180, cm, 09/12/23 13:35:00 EST, Height/Length Dosing, 149.8, kg, 09/12/23 13:35:00 EST, Weight DosingStart: 80-08-5283Nmivhpjccb test strips, See Instructions, 100 strip(s), 11, Test TID DX E11.40 on insulin, [facility]#[id number], Supply, 180, cm, 09/12/23 13:35:00 EST, Height/Length Dosing, 149.8, kg, 09/12/23 13:35:00 EST, Weight DosingStart: 50-77-0505Ecsvczr Pen Dexter 31g x 8 mm, See Instructions, 450 EA, 4, Use up to 4 daily, [facility] #38767, Supply, 180, cm, 09/12/23 13:35:00 EST, Height/Length Dosing, 149.8, kg, 09/12/23 13:35:00 EST, Weight DosingStart: 94-87-9459zngatsa, See Instructions, 100 EA, 11, test blood sugar tid dx E11.9 on insulin, [facility] #98648, Supply, 180, cm, 09/12/23 13:35:00 EST, Height/Length Dosing, 149.8, kg, 09/12/23 13:35:00 EST, Weight DosingStart: 20-82-6447Jznstjgvnv test strips, See Instructions, 100 strip(s), 11, Test TID DX E11.40 on insulin, [facility]#53540, Supply, 180, cm, 09/12/23 13:35:00 EST, Height/Length Dosing, 149.8, kg, 09/12/23 13:35:00 EST, Weight DosingStart: 91-10-7249Kmrglcz Pen Dexter 31g x 8 mm, See Instructions, 450 EA, 4, Use up to 4 daily, [facility] #[id number], Supply, 180, cm, 09/12/23 13:35:00 EST, Height/Length Dosing, 149.8, kg, 09/12/23 13:35:00 EST, WeightDosingStart: 43-16-3566viyzeca, See Instructions, 100 EA, 11, test blood sugar tid dx E11.9 on insulin, [facility] #74821, Supply, 180, cm, 09/12/23 13:35:00 EST, Height/Length Dosing, 149.8, kg, 09/12/23 13:35:00 EST, Weight DosingStart: 95-59-5378Tyqcyrtmhw test strips, See Instructions, 100 strip(s), 11, Test TID DX E11.40 on insulin, [facility]#[id number], Supply, 180, cm, 09/12/23 13:35:00 EST, Height/Length Dosing, 149.8, kg, 09/12/23 13:35:00 EST, Weight DosingStart: 86-89-3653Lojzqgo Pen Dexter 31g x 8 mm, See Instructions, 450 EA, 4, Use up to 4 daily, [facility] #60067, Supply, 180, cm, 09/12/23 13:35:00 EST, Height/Length Dosing, 149.8, kg, 09/12/23 13:35:00 EST, WeightDosingStart: 64-75-3907zsedvyz, See Instructions, 100 EA, 11, test blood sugar tid dx E11.9 on insulin, [facility] #88393, Supply, 180, cm, 09/12/23 13:35:00 EST, Height/Length Dosing, 149.8, kg, 09/12/23 13:35:00 EST, Weight DosingStart: 19-15-0899Pblsprnmzc test strips, See Instructions, 100 strip(s), 11, Test TID DX E11.40 on insulin, [facility]#[id number], Supply, 180, cm, 09/12/23 13:35:00 EST, Height/Length Dosing, 149.8, kg, 09/12/23 13:35:00 EST, Weight DosingStart: 11-43-6483Oombmrn Pen Dexter 31g x 8 mm, See Instructions, 450 EA, 4, Use up to 4 daily, [facility] #[id number], Supply, 180, cm, 09/12/23 13:35:00 EST, Height/Length Dosing, 149.8, kg, 09/12/23 13:35:00 EST, Weight DosingStart: 69-81-0040eyskvou, See Instructions, 100 EA, 11, test blood sugar tid dx E11.9 on insulin, [facility] #[id number], Supply, 180, cm, 09/12/23 13:35:00 EST, Height/Length Dosing, 149.8, kg, 09/12/23 13:35:00 EST, Weight DosingStart: 77-46-6734Ehgteaiqas test strips, See Instructions, 100 strip(s), 11, Test TID DX E11.40 on insulin, [facility]#[id number], Supply, 180, cm, 09/12/23 13:35:00 EST, Height/Length Dosing, 149.8, kg, 09/12/23 13:35:00 EST, Weight DosingStart: 01-33-7625Zilwmvn Pen Dexter 31g x 8 mm, See Instructions, 450 EA, 4, Use up to 4 daily, [facility] #[id number], Supply, 180, cm, 09/12/23 13:35:00 EST, Height/Length Dosing, 149.8, kg, 09/12/23 13:35:00 EST, WeightDosingStart: 38-82-4043hrcgmru, See Instructions, 100 EA, 11, test blood sugar tid dx E11.9 on insulin, [facility] #[id number], Supply, 180, cm, 09/12/23 13:35:00 EST, Height/Length Dosing, 149.8, kg, 09/12/23 13:35:00 EST, Weight DosingStart: 73-67-4584Tbpjutpboh test strips, See Instructions, 100 strip(s), 11, Test TID DX E11.40 on insulin, [facility]#[id number], Supply, 180, cm, 09/12/23 13:35:00 EST, Height/Length Dosing, 149.8, kg, 09/12/23 13:35:00 EST, Weight DosingStart: 02-75-8658Kpobrzt Pen Dexter 31g x 8 mm, See Instructions, 450 EA, 4, Use up to 4 daily, [facility] #[id number], Supply, 180, cm, 09/12/23 13:35:00 EST, Height/Length Dosing, 149.8, kg, 09/12/23 13:35:00 EST, WeightDosingStart: 50-98-8401dfykjta, See Instructions, 100 EA, 11, test blood sugar tid dx E11.9 on insulin, [facility] #[id number], Supply, 180, cm, 09/12/23 13:35:00 EST, Height/Length Dosing, 149.8, kg, 09/12/23 13:35:00 EST, Weight DosingStart: 65-97-4268Zutgdogwho test strips, See Instructions, 100 strip(s), 11, Test TID DX E11.40 on insulin, [facility]#[id number], Supply, 180, cm, 09/12/23 13:35:00 EST, Height/Length Dosing, 149.8, kg, 09/12/23 13:35:00 EST, Weight DosingStart: 8730Ciwkcrw Pen Dexter 31g x 8 mm, See Instructions, 450 EA, 4, Use up to 4 daily, [facility] #[id number], Supply, 180, cm, 09/12/23 13:35:00 EST, Height/Length Dosing, 149.8, kg, 09/12/23 13:35:00 EST, Weight DosingStart: 00-81-4485mnlzfee, See Instructions, 100 EA, 11, test blood sugar tid dx E11.9 on insulin, [facility] #[id number], Supply, 180, cm, 09/12/23 13:35:00 EST, Height/Length Dosing, 149.8, kg, 09/12/23 13:35:00 EST, Weight DosingStart: 19-15-0416Xhnylrwxyl test strips, See Instructions, 100 strip(s), 11, Test TID DX E11.40 on insulin, [facility]#[id number], Supply, 180, cm, 09/12/23 13:35:00 EST, Height/Length Dosing, 149.8, kg, 09/12/23 13:35:00 EST, Weight DosingStart: 93-43-7881Evkkbcd Pen Dexter 31g x 8 mm, See Instructions, 450 EA, 4, Use up to 4 daily, [facility] #[id number], Supply, 180, cm, 09/12/23 13:35:00 EST, Height/Length Dosing, 149.8, kg, 09/12/23 13:35:00 EST, WeightDosingStart: 38-49-8227drbtazm, See Instructions, 100 EA, 11, test blood sugar tid dx E11.9 on insulin, [facility] #[id number], Supply, 180, cm, 09/12/23 13:35:00 EST, Height/Length Dosing, 149.8, kg, 09/12/23 13:35:00 EST, Weight DosingStart: 74-28-4204Tlcacdlvxr test strips, See Instructions, 100 strip(s), 11, Test TID DX E11.40 on insulin, [facility]#[id number], Supply, 180, cm, 09/12/23 13:35:00 EST, Height/Length Dosing, 149.8, kg, 09/12/23 13:35:00 EST, Weight DosingStart: 32-13-7313Enzxdxv Pen Dexter 31g x 8 mm, See Instructions, 450 EA, 4, Use up to 4 daily, [facility][id number], Supply, 180, cm, 09/12/23 13:35:00 EST, Height/Length Dosing, 149.8, kg, 09/12/23 13:35:00 EST, WeightDosingStart: 55-38-6430svwwsfk, See Instructions, 100 EA, 11, test blood sugar tid dx E11.9 on insulin, [facility] #[id number], Supply, 180, cm, 09/12/23 13:35:00 EST, Height/Length Dosing, 149.8, kg, 09/12/23 13:35:00 EST, Weight DosingStart: 04-27-1691Axdgetuzaa test strips, See Instructions, 100 strip(s), 11, Test TID DX E11.40 on insulin, [facility][id number], Supply, 180, cm, 09/12/23 13:35:00 EST, Height/Length Dosing, 149.8, kg, 09/12/23 13:35:00 EST, Weight DosingStart: 61-73-6437Xqmouej Pen Dexter 31g x 8 mm, See Instructions, 450 EA, 4, Use up to 4 daily, [facility] #[id number], Supply, 180, cm, 09/12/23 13:35:00 EST, Height/Length Dosing, 149.8, kg, 09/12/23 13:35:00 EST, Weight DosingStart: 52-91-6210pgmhmsv, See Instructions, 100 EA, 11, test blood sugar tid dx E11.9 on insulin, [facility] #[id number], Supply, 180, cm, 09/12/23 13:35:00 EST, Height/Length Dosing, 149.8, kg, 09/12/23 13:35:00 EST, Weight DosingStart: 35-98-2429Gdgejjsmsk test strips, See Instructions, 100 strip(s), 11, Test TID DX E11.40 on insulin, [facility][id number], Supply, 180, cm, 09/12/23 13:35:00 EST, Height/Length Dosing, 149.8, kg, 09/12/23 13:35:00 EST, Weight DosingStart: 18-43-5250Hdtwhwq Pen Dexter 31g x 8 mm, See Instructions, 450 EA, 4, Use up to 4 daily, [facility] #[id number], Supply, 180, cm, 09/12/23 13:35:00 EST, Height/Length Dosing, 149.8, kg, 09/12/23 13:35:00 EST, WeightDosingStart: 92-41-0347aovrmpb, See Instructions, 100 EA, 11, test blood sugar tid dx E11.9 on insulin, [facility] #[id number], Supply, 180, cm, 09/12/23 13:35:00 EST, Height/Length Dosing, 149.8, kg, 09/12/23 13:35:00 EST, Weight DosingStart: 77-29-8324Rbctyuvwux test strips, See Instructions, 100 strip(s), 11, Test TID DX E11.40 on insulin, [facility][id number], Supply, 180, cm, 09/12/23 13:35:00 EST, Height/Length Dosing, 149.8, kg, 09/12/23 13:35:00 EST, Weight DosingStart: 89-25-8730Rvqkzuh Pen Dexter 31g x 8 mm, See Instructions, 450 EA, 4, Use up to 4 daily, [facility] #[id number], Supply, 180, cm, 09/12/23 13:35:00 EST, Height/Length Dosing, 149.8, kg, 09/12/23 13:35:00 EST, WeightDosingStart: 91-25-1246zatxike, See Instructions, 100 EA, 11, test blood sugar tid dx E11.9 on insulin, [facility] #[id number], Supply, 180, cm, 09/12/23 13:35:00 EST, Height/Length Dosing, 149.8, kg, 09/12/23 13:35:00 EST, Weight DosingStart: 00-42-0932Ikeouyjozj test strips, See Instructions, 100 strip(s), 11, Test TID DX E11.40 on insulin, [facility][id number], Supply, 180, cm, 09/12/23 13:35:00 EST, Height/Length Dosing, 149.8, kg, 09/12/23 13:35:00 EST, Weight DosingStart: 82-27-9900Kehcyyg Pen Dexter 31g x 8 mm, See Instructions, 450 EA, 4, Use up to 4 daily, [facility] #[id number], Supply, 180, cm, 09/12/23 13:35:00 EST, Height/Length Dosing, 149.8, kg, 09/12/23 13:35:00 EST, Weight DosingStart: 46-55-4532dpufrxm, See Instructions, 100 EA, 11, test blood sugar tid dx E11.9 on insulin, [facility] #[id number], Supply, 180, cm, 09/12/23 13:35:00 EST, Height/Length Dosing, 149.8, kg, 09/12/23 13:35:00 EST, Weight DosingStart: 88-14-8715Qwbcdwuhcg test strips, See Instructions, 100 strip(s), 11, Test TID DX E11.40 on insulin, [facility][id number], Supply, 180, cm, 09/12/23 13:35:00 EST, Height/Length Dosing, 149.8, kg, 09/12/23 13:35:00 EST, Weight DosingStart: 63-39-5357Nwpbosc Pen Dexter 31g x 8 mm, See Instructions, 450 EA, 4, Use up to 4 daily, [facility] #[id number], Supply, 180, cm, 09/12/23 13:35:00 EST, Height/Length Dosing, 149.8, kg, 09/12/23 13:35:00 EST, WeightDosingStart: 76-77-3501xneeife, See Instructions, 100 EA, 11, test blood sugar tid dx E11.9 on insulin, [facility] #[id number], Supply, 180, cm, 09/12/23 13:35:00 EST, Height/Length Dosing, 149.8, kg, 09/12/23 13:35:00 EST, Weight DosingStart: 40-51-801353321802Yguep: 05-05-2024 End: 13-26-2173Blbrnjlbeb test strips, See Instructions, 100 strip(s), 11, Test TID DX E11.40 on insulin, [facility][id number], Supply, 180, cm, 09/12/23 13:35:00 EST, Height/Length Dosing, 149.8, kg, 09/12/23 13:35:00 EST, Weight DosingStart: 90-56-8531Vlwjiuc Pen Dexter 31g x 8 mm, See Instructions, 450 EA, 4, Use up to 4 daily, [facility] #[id number], Supply, 180, cm, 09/12/23 13:35:00 EST, Height/Length Dosing, 149.8, kg, 09/12/23 13:35:00 EST, WeightDosingStart: 45-55-6182epzdqjs, See Instructions, 100 EA, 11, test blood sugar tid dx E11.9 on insulin, [facility] #[id number], Supply, 180, cm, 09/12/23 13:35:00 EST, Height/Length Dosing, 149.8, kg, 09/12/23 13:35:00 EST, Weight DosingStart: 47-79-8128Rnfsuhkbzi test strips, See Instructions, 100 strip(s), 11, Test TID DX E11.40 on insulin, [facility]#[id number], Supply, 180, cm, 09/12/23 13:35:00 EST, Height/Length Dosing, 149.8, kg, 09/12/23 13:35:00 EST, Weight DosingStart: 89-67-3374Oqwsrvv Pen Dexter 31g x 8 mm, See Instructions, 450 EA, 4, Use up to 4 daily, [facility] #[id number], Supply, 180, cm, 09/12/23 13:35:00 EST, Height/Length Dosing, 149.8, kg, 09/12/23 13:35:00 EST, WeightDosingStart: 46-27-6674nlfkjvx, See Instructions, 100 EA, 11, test blood sugar tid dx E11.9 on insulin, [facility] #[id number], Supply, 180, cm, 09/12/23 13:35:00 EST, Height/Length Dosing, 149.8, kg, 09/12/23 13:35:00 EST, Weight DosingStart: 27-06-3843Nflvtmxqew test strips, See Instructions, 100 strip(s), 11, Test TID DX E11.40 on insulin, [facility][id number], Supply, 180, cm, 09/12/23 13:35:00 EST, Height/Length Dosing, 149.8, kg, 09/12/23 13:35:00 EST, Weight DosingStart: 59-49-1780Zbktzef Pen Dexter 31g x 8 mm, See Instructions, 450 EA, 4, Use up to 4 daily, [facility] #[id number], Supply, 180, cm, 09/12/23 13:35:00 EST, Height/Length Dosing, 149.8, kg, 09/12/23 13:35:00 EST, Weight DosingStart: 94-48-8398bxriusq, See Instructions, 100 EA, 11, test blood sugar tid dx E11.9 on insulin, [facility] #62562, Supply, 180, cm, 09/12/23 13:35:00 EST, Height/Length Dosing, 149.8, kg, 09/12/23 13:35:00 EST, Weight DosingStart: 46-35-2868EJE TO TEST BLOOD SUGARS THREE TIMES A DAY.[id number]: 12-05-2024 End: 05-63-9551Vsg Needle 31G x 6mm, See Instructions, 100 EA, 1, Pen Needle 31G x 6mm, [facility] #[id number], Supply, 182, cm, 12/20/24 13:40:00 EDT, Height/Length Dosing, 118.4, kg, 12/20/24 13:40:00 EDT, Weight DosingStart: 08-44-6400HSW TO TEST BLOOD SUGARS THREE TIMES A DAY.[id number]: 03-13-2025 Goals DatePatient GoalDesired Activity/[place]12-46-6491 Functional Status SbgzAisqbqfzhaLchnrkAwmqdpfm01-58-4001Lvzkddwpkj StatusN/[facility]05-02-2025[facility]Patient Health Questionnaire 2 item (PHQ-2) [Reported][facility] HospitalGrathxobhd98-37-3831 Functional StatusN/[facility]11-19-2024Functional StatusN/A [facility]11-03-2024Functional StatusN/[facility]09-09-2024Patient Health Questionnaire 2 item (PHQ-2) [Reported] [facility] HospitalTikaixfwmy67-48-7255Blpvtjqdur StatusN/[facility]21[facility]24Functional StatusN/[facility]05-27-2024Functional StatusN/[facility]04-01-2024Functional StatusN/[facility]03-29-2024 Functional statusPatient is Progressing [facility]ard [facility] Work Phone: [phone]ahmref StatusN/[facility]03-11-2024Functional StatusN/[facility]02-28-2024 Functional StatusN/[facility] 15-32-3965Yezibgbbum StatusN/[facility]02-22-2024Functional statusPatient [facility] Work Phone: [phone]) [phone]pvk StatusN/[facility]01-28-2024Functional StatusN/[facility]12-17-2023 Functional StatusN/[facility]11-01-2023Functional status [facility] Work Phone: [phone]) [phone]gguhhm StatusN/[facility]10-22-2023Function[facility] StatusProv[facility]10-02-2023 Functional StatusN/[facility] 70-67-9779Irlisvhznz StatusNoProv[facility] Hospital01-24-2023Functional StatusN/[facility]12-15-2022 Functional StatusN/[facility]08-09-2022Functional StatusN/A [facility] [id number] StatusN/[facility] Mental Status HyeaFlijhqyeomFxfdszCmkxbnwr63-61-4677Vzudqvvlo functionCognitive Status [facility] Work Phone: [phone] functionCognitive Status [facility] Work Phone: [phone]bs functionCognitive Status [facility] Work Phone: Clinical Notes 12-28-2021 to 06-05-2025 Note Date & KsjkDkbeRlbgbilu97-06-1810 History of Present illness Narrative* Kayla Sweeney [...] twice a day. Blood sugar in our xyxncj527; A1C 11. SUBJECTIVE: MEDICATIONS: Current Outpatient Medications [...] TO TEST BLOOD SUGAR Continuous Blood Gluc Predictive Maintenance Technician (FreeStyle Sage 3 Opheim) device 1 each, Does not apply, Continuous Continuous Blood Gluc Sensor (FreeStyle Sage 3 Sensor) misc 1 each, Does not apply, Every 14 days cyclobenzaprine (FLEXERIL) 10 mg, Oral, Nightly DULoxetine (CYMBALTA) 120 mg, Oral, Daily Fiasp FlexTouch 40 Units, Subcutaneous, 3 times daily with meals gabapentin (NEURONTIN) 800 mg, Oral, 3 times daily glucose blood (Dr. ScribblesTouch Verio) test strip USE TO TEST BLOOD [...] disease (HCC) 11/17/2023 Acute hypoxemic respiratory failure ([facility]) Acute on chronic respiratory failure with hypercapnia ([facility]) AMY (acute kidney injury) Arthritis Asthma ([facility]) Cataract Chronic kidney disease, stage 3b ([facility] [place]) Diabetes ([facility]) Diabetes mellitus with neuropathy ([facility]) Dietary counseling and surveillance Dry eyes GERD (gastroesophageal reflux disease) Hypertension Lymphedema of both lower extremities 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 Insulin long-term use ([facility]) Vitamin D deficiency Encounter for dietary consultation Hyperlipemia, mixed Primary hypertension Follow up in about 3 months (around 09/05/2025). 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 documented in this encounterMercy McCune-Brooks HospitalPyjeaxqchb50-26-9811 History of Present illness Narrative* Mounika Brooke [...] monitor. No change in regimen. Morbid obesity ([facility]) - continue to monitor weight BMI 36.0-36.9,adult documented in this encounterMercy McCune-Brooks HospitalJtespnbylm95-02-0962 Telephone encounter Note* Telephone Encounter - Cooper Bradford - 03/24/2025 8:06 AM EDT Pt called into the office, he wants to cancel the nurse that is coming to his apartment. He said itis not working out. He thinks might be [place] [facility] HospitalZxwdreplss34-34-5099 Miscellaneous Notes* Telephone Encounter - Cooper Bradford - 03/24/2025 8:06 AM EDT Pt called into the office, he wants to cancel the nurse that is coming to his apartment. He said itis not working out. He thinks might be [place] documented in this encounterMercy McCune-Brooks HospitalUrdalvamwn79-15-9015 History of Present illness Narrative* Mounika Brooke [...] Flowsheet Row Patient Outreach from 03/11/[address] [facility] with Grecia Mcneil [employer] [facility] Information ED, Hospital or Custodial Facility Discharge? Hospital Patient has been contacted within two business days of discharge Yes Diagnosis Electorolyte abnormality from severe hyperglycemia, left leg cramps Discharge Date 03/07/25 Discharged To: Home Setting Discharge Hospital [facility] Engagement Admission Date 03/05/25 Medications Discharge medications [...] Muscle cramps - resolved Long-term insulin use ([facility]) Difficulty walking - continue to use walker Essential (primary) hypertension Stable, continue to monitor. No change in regimen. Morbid obesity ([facility]) - continue to monitor weight BMI 38.0-38.9,adult Follow up if symptoms worsen or fail to improve. documented in this encounterMercy McCune-Brooks HospitalMqeqonjtvg35-99-9476 NoteDischarge Summary Admission and Discharge Information Admit [...] for 2 days.He was subsequently admitted to [facility] with left leg muscle spasm secondary toelectrolyte [...] bilaterally, speech normal Ps (more content not included)...[facility] CenterComment on above: Result Comment: Electronically Signed By: NAHOMY LYMAN, Jordan\.br\Date and Time Signed: 03/07/25 09:36 [id number] NoteInterdisciplinary Note - PT PT Evaluation completed with an [facility] score of 22/24. Pt sitting EOB at entrance and was able to perform sit to stand transfers with Mod I. Pt was able to ambulate with FWW with no reports of leg pain. Did ambulate x 2 times with no LOB or pain. Pt would be functionally safe to return home with useof FWW as prior. No further PT services neededSouth[facility] Center07-[facility]-2025 Note Progress Note-Physician Assessment/Plan 65-year-old male with [...] hyperglycemia. Resolved. Was treated with orphenadrine. Ordered: [facility] Care/Day Moderate 35 Minutes [id number] 2. Type 2 diabetes mellitus with hyperosmolar nonketotic hyperglycemia (E11.00: Type 2 diabetes mellitus with hyperosmolarity without nonketotic hyperglycemic- hyperosmolar coma ([facility])) Acute hyperosmolar nonketotic hyperglycemia???present on admission. Secondary to noncompliance with medication. Treated with IV insulin drip and IV fluid. Hemoglobin A1c 11.8%. Will start patient on long-acting insulin, regular insulin and sliding scale insulin. Ordered: [facility] Care/Day Moderate 35 Minutes 47244 3. Pseudohyponatremia (R79.89: Other specified abnormal findings of blood chemistry) Secondary to hypoglycemia. Resolved. Ordered: [facility] Care/Day Moderate 35 Minutes 37989 4. CKD (chronic kidney disease) (N18.9: Chronic kidney disease, unspecified) Chronic kidney disease stage III???back to baseline. Ordered: [facility] Care/Day Moderate 35 Minutes 67279 5. Hypertension (I10: Essential (primary) hypertension) Blood [...] made to ensure accuracy. However inadvertent computerized bucket hooker errors may be present. Jordan Macario. Hospitalist. [...] wall: no deformity. Gastrointestin (more content not included)...[facility] CenterComment on above:Result Comment: Electronically Signed By: NAHOMY LYMAN, Jordan\.br\Date and Time Signed: 03/06/25 10:24 [id number] NoteHistory and Physical Basic Information Admit Date/Time:03/05/2025 [...] Sodium low at 119 (correct Na for ippzegf352). No evidence of DKA as AGAP and [...] 20:15:00) Lymph Auto: 17.9 % (03/05/25 20:15:00) Sublette Auto: 6.5 % (03/05/25 20:15:00) Eos Auto: 2.4 % (03/05/25 20:15:00) Basophil Auto: 0.9 % (03/05/25 20:15:00) Neutro Absolute: 5 E9/L (03/05/25 20:15:00) Lymph Absolute: 1.2 E9/L (03/05/25 20:15:00) Sublette Absolute: 0.4 E9/L (03/05/25 20:15:00) Eos Absolute: [...] 1.2 (03/05/25 20:15:00) B (more content not included)...[facility] CenterComment on above: Result Comment: Electronically Signed By: Erick LYMAN, Jigna\.br\Date and Time Signed: 03/05/25 23:22 [id number] History of Present illness Narrative* Mounika Brooke MD - 02/05/2025 12:20 PM EDT Images from the original note were not included. Subjective Patient ID: Nicole Lora is a 65 y.o. male who presents for No chief complaint on file.. HPI Pt here for follow up. Has been working with [employer] for possible scooter. States they have been [...] weakness, bilateral - Continue to work with [employer] Essential (primary) hypertension Stable, continue to monitor. No change in regimen. Difficulty walking - as above Type 2 diabetes mellitus with hyperglycemia, with long-term current use of insulin (HCC) - continue to follow w/ endocrinology Long-term insulin use (HCC) Morbid obesity ([facility]) - continue to monitor weight BMI 36.0-36.9,adult documented in this [facility]06-18-2025 Telephone encounter Note* Telephone Encounter - Aggie oTribio - 02/05/2025 10:29 AM EDT Brittani from called and stated that he's been unbalanced, having a hard time sleeping, his bloodsugar is at 155. Pt states that is too low for him. [facility] Pfgfrpwjnj23-21-3703 Miscellaneous Notes* Telephone Encounter - Aggie Toribio - 02/05/2025 10:29 AM EDT Brittani from called and stated that he's been unbalanced, having a hard time sleeping, his bloodsugar is at 155. Pt states that is too low for him. documented in this [facility]05-07-2025 History of Present illness Narrative* Kayla Sweeney [...] twice a day. Blood sugar in our [id number]; A1C 11. SUBJECTIVE: MEDICATIONS: Current Outpatient Medications Medication Instructions albuterol HFA 90 mcg/act inhaler 2 puffs, Every 4 hours PRN amLODIPine (Norvasc) 10 MG tablet 1 tablet, Daily atorvastatin (LIPITOR) 40 mg, Every 24 hours Continuous Blood Gluc Predictive Maintenance Technician (FreeStyle Sage 3 Opheim) device 1 each, Does not apply, Continuous [...] History: Diagnosis Date Acute hypoxemic respiratory failure ([facility]) Acute on chronic respiratory failure with hypercapnia ([facility]) AMY (acute kidney injury) ([facility]) Arthritis Asthma Cataract Chronic kidney disease, stage 3b (HCC) ([facility]) Diabetes ([facility]) Diabetes mellitus with neuropathy ([facility]) Dietary counseling and surveillance Dry eyes GERD (gastroesophageal reflux disease) Hypertension ([facility]) Lymphedema of both lower extremities 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 ([facility]) Morbid obesity with body mass index (BMI) of 40.0 to 49.9 ([facility]) Onychomycosis Pneumonia 06/19/2024 [facility] (pulmonary valve disease) Type 2 diabetes mellitus with hyperglycemia ([facility]) Vitamin D deficiency, unspecified Past Surgical History: [...] hyperglycemia, with long-term current use of insulin ([facility]) - gabapentin (Neurontin) 600 MG tablet; Take [...] 3 times a day. Insulin long-term use ([facility]) Vitamin D deficiency Encounter for dietary consultation Hyperlipemia, mixed ([facility]) Primary hypertension ([facility]) Follow up in about 6 months (around 06/27/2025). documented in this encounterMercy McCune-Brooks HospitalUkffkkakux09-41-7473 Hospital Discharge instructions Patient Education 12/21/2024 14:26:36 [...] concerns. Where to find more information The [place] [employer]: diabetes.org The Association of Diabetes [...] provider. Document Revised: 06/23/2023 Document Reviewed: 06/23/2023 [employer] Patient Education 2023 [employer] 12/21/2024 14:26:35 Correction Insulin Correction Insulin [...] vacation, changing your diet, or holidays. ?New ufgq-kee-wfjphty or prescription medicines. ?Illness, stress, or anxiety. [...] provider. Document Revised: 08/12/2021 Document Reviewed: 08/12/2021 [employer] Patient Education 2023 [employer] 12/21/2024 14:25:51 Diabetic Neuropathy Diabetic Neuropathy [...] provider. Document Revised: 12/17/2020 Document Reviewed: 12/17/2020 [employer] Patient Education 2023 [employer]. Follow Up Care 12/20/2024 13:30:13 With:KAYLA SWEENEY [address] [place] [address]- Business (1) When: Unknown Comments:Follow as scheduled in December 2024 With:Mounika Brooke Address: [place] [address]- Business (1) When:7 to 10 days Comments:Call for followup appointment [facility] 05-03-2025 NoteDischarge Summary Admission and Discharge Information [...] 3rd toes, and hypertension who presented to [facility] ER with chief complaint of left [...] he has not picked up from his associate professor of criminal justice yet. His glucose was slowly improving with [...] losartan, which I confirmed he has with [facility] Refilled glucometer, test strips, lancets???confirmed with [facility] that they can fill this and his [...] defer management of his diabetes to his associate professor of criminal justice if he is compliant with follow-up. He [...] adenopathy, no tenderness Eye (more content not included)...[facility] CenterComment on above: Result Comment: Electronically Signed By: Toni Gutierrez III, DO\.br\Date and Time Signed: 12/21/24 14:44 [id number] Evaluation + Plan noteExtracted from:Title:Discharge NoteAuthor:Toni Gutierrez [...] TID With When Contact Information KAYLA SWEENEY [facility] [facility], [address] [place] [address]- Business (1) Additional Instructions: Follow as scheduled in December 2024 Mounika Brooke Within 7 to [address] [place] [address]- Business (1) Additional Instructions: Call for followup [...] 3rd toes, and hypertension who presented to [facility] with chief complaint of left leg [...] August 2024. Follows with Dr. Sweeney in [place] Status post 2 L IV fluid bolus [...] Panel Initial Hospital Care/Day Moderate 55 Minutes 09515 2. Leg muscle spasm (M62.838: Other muscle [...] state. Recommend weight loss. Defer to his associate professor of criminal justice to ensure is well versed in therapies [...] BID, # 20 cap(s), Refills(s) 0, Pharmacy: [facility][id number], 183, cm, 06/23/24 13:45:00 EST, Height/Length Dosing, [...] with Cult Rflx XR Chest Single View [facility] 05-03-2025 NoteInterdisciplinary Note - PT PT [...] future falls. Will continue to follow while inpatient.[facility]05-[facility] NoteInterdisciplinary Note - OT Pt is seen this date for OT evaluation. [facility] score: . pt presents with ability to complete functional transfers and short mobility at CGA level with FWW for support, limited by spasms behind L knee, and decreased activity tolerance. OT to continue to follow for treatment. Recommending HH atd/c.[facility]05-02-2025 NoteHistory and Physical Chief Complaint pt. [...] 3rd toes, and hypertension who presented to [facility] with chief complaint of left leg spasms.He [...] confusion. He states that he follows with associate professor of criminal justice Dr. Sweeney in [place]. He states that he only takes insulin, [...] 6.2 E9/L (12/20/24 1 (more content not included)...[facility] CenterComment on above:Result Comment: Electronically Signed By: Toni Gutierrez III, DO.samir\Date and Time Signed: 12/20/24 19:04 [id number] NoteED Patient Education Note Endocrinology Hyperglycemia Hyperglycemia [...] instructions at home: General instructions ??? Take qlmw-hqp-empjevl and prescription medicines only as told by [...] need help with this (more content not included)...[facility]04-30-2025 History of Present illness Narrative* Mone [...] notes on w/c assessment documented in this [facility]04-22-2025 Telephone encounter Note* Telephone Encounter - Cooper Bradford - 12/10/2024 1:35 PM EDT [facility] He stopped in office to Pt is in need of a chair, there is no note added in the last office visit could that be added to the note. He should be seen next week unless he answers his phone today. [facility] [id number] Miscellaneous Notes* Telephone Encounter - Cooper Bradford - 12/10/2024 1:35 PM EDT [facility] He stopped in office to Pt is in need of a chair, there is no note added in the last office visit could that be added to the note. He should be seen next week unless he answers his phone today. documented in this [facility]04-16-2025 History of Present illness Narrative* Mounika Brooke [...] Flowsheet Row Patient Outreach from 12/04/[address] [facility] with Kristi Canales LPN Hospital Information ED, Hospital or Custodial Facility Discharge? ED Patient has been contacted within 2 days of being seen in the ED Yes Diagnosis Hyperglycemic, Bronchitis Discharge Date 12/02/24 [Left AMA] Discharged To: Home Setting Discharge Hospital [facility] Engagement Call Start Time 0940 [...] Leg weakness, bilateral BMI 35.0-35.9,adult Morbid obesity ([facility]/HCC) Type 2 diabetes mellitus with diabetic chronic kidney disease ([facility]/HCC) Chronic kidney disease, stage 3b (HCC) (CMS/HCC) Essential (primary) hypertension ([facility]/HCC) Acquired absence of left foot ([facility]/HCC) Reviewed ED course with pt. Encouraged pt to continue medications as prescribed. No changes in chronic medications. Encouraged continued follow up with specialists. Due to weakness and difficulty walking, discussed need for further assistance. Follow up if symptoms worsen or fail to improve. documented in this encounterMercy McCune-Brooks [id number] Hospital Discharge instructions Patient Education 12/02/2024 15:24:12 [...] condition. Follow these instructions at home: Take mbyg-ifd-gvtjpre and prescription medicines only as told by [...] and water are not available, use hand change management administrator. Avoid contact with people who have cold [...] it is easier to cough up. Take clvm-vik-ayeatuh and prescription medicines only as told by [...] provider. Document Revised: 11/17/2022 Document Reviewed: 12/08/2021 [employer] Patient Education 2023 [employer] 12/02/2024 15:24:12 Type 2 Diabetes Mellitus, Self-Care, Adult, Uvrb-zf-Qwpz Type 2 Diabetes Mellitus, Self-Care, Adult When [...] tell you how to do this. Take xzdf-rnz-xodpsfy and prescription medicines only as told by [...] for cuts, bruises, redness, blisters, or sores. [place] your teeth and gums two times a [...] more information about diabetes, please go to: [place] [employer]: www.diabetes.org [place] [employer] and Education Specialists: [...] provider. Document Revised: 11/01/2021 Document Reviewed: 11/01/2021 [employer] Patient Education 2023 [employer] 12/02/2024 15:24:12 Hyperglycemia Hyperglycemia Hyperglycemia occurs [...] these instructions at home: General instructions Take losh-bmo-dkqjslj and prescription medicines only as told by [...] alert jewelry. Where to find more information [place] [employer]: www.diabetes.org Contact a health care [...] provider. Document Revised: 05/20/2021 Document Reviewed: 05/21/2021 [employer] Patient Education 2023 [employer]. Follow Up Care 12/02/2024 12:36:28 With:Mounika Brooke Address: [place] [place] [address]- Business (1) When:12/05/2024 15:08:13 Comments:Call Dr for diagnosis based follow up [facility] 04-14-2025 NoteED Patient Education Note Endocrinology [...] you how to do this. ??? Take vslh-kqd-wzbnjsr and prescription medicines only as told by [...] mL), one 5 oz (more content not included)...[facility]01-15-2025 History of Present illness Narrative* Kayla [...] twice a day. Blood sugar in our futepl193; A1C 11. SUBJECTIVE: MEDICATIONS: Current Outpatient Medications Medication Instructions albuterol HFA 90 mcg/act inhaler 2 puffs, Every 4 hours PRN amLODIPine (Norvasc) 10 MG tablet 1 tablet, Daily atorvastatin (LIPITOR) 40 mg, Every 24 hours Continuous Blood Gluc Predictive Maintenance Technician (FreeStyle Sage 3 Opheim) device 1 each, Does not apply, Continuous [...] History: Diagnosis Date Acute hypoxemic respiratory failure ([facility]) Acute on chronic respiratory failure with hypercapnia ([facility]) AMY (acute kidney injury) ([facility]) Arthritis Asthma ([facility]) Cataract Chronic kidney disease, stage 3b (HCC) ([facility]) Diabetes ([facility]) Diabetes mellitus with neuropathy ([facility]) Dietary counseling and surveillance Dry eyes GERD (gastroesophageal reflux disease) Hypertension ([facility]) Lymphedema of both lower extremities 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 documented in this encounterMercy McCune-Brooks [id number] Telephone encounter Note* Telephone Encounter - Mounika Brooke MD - 08/06/2024 10:26 AM EST Ok to send [facility] [id number] Miscellaneous Notes* Telephone Encounter - Mounika Brooke MD - 08/06/2024 10:26 AM EST Ok to send * Telephone Encounter - Cooper Bradford - 08/06/2024 8:48 AM EST [facility] called they need this information sent for to them for the Referral on the Hyperbaric Oxygen Treatment A1C, pvr, and last 30day of notes on the wound Please send to fax [phone] to [place] documented in this encounterMercy McCune-Brooks [id number] Telephone encounter Note* Telephone Encounter - Cooper Bradford - 08/06/2024 8:48 AM EST [facility] called they need this information sent for to them for the Referral on the Hyperbaric Oxygen Treatment A1C, pvr, and last 30day of notes on the wound Please send to fax [phone] to [place] [facility]-Bro[facility] [id number] NoteTime Out 07/22/2024. 3:03 PM. Confirmed correct patient, procedure, site, and patient consented. Anesthesia Topical anesthesia was used. Anesthetic medications included Proparacaine 0.5%. Procedure Preparation included 5% betadine to ocular surface. A 30 gauge needle was used. Injection: 0.3 mg ranibizumab 0.3 MG/0.05ML Route: Intravitreal, Site: Left Eye [facility]: [id number], Lot: [id number], Expiration date: 04/29/2026, Waste: 0 mL Post-op [...] with increased pain, redness, decreased vision or concerns.[facility]-Brooks HospitalNlkwiixbwy07-06-0037 History of Present illness Narrative* Perlita Meeks MD - 07/22/2024 2:15 PM EST Assessment/Plan documented in this encounterMercy McCune-Brooks [id number] History of Present illness Narrative* Kayla Sweeney [...] mg, Every 24 hours Continuous Blood Gluc Predictive Maintenance Technician (FreeStyle Sage 3 Opheim) device 1 each, Does not apply, Continuous [...] History: Diagnosis Date Acute hypoxemic respiratory failure ([facility]) Acute on chronic respiratory failure with hypercapnia ([facility]) AMY (acute kidney injury) ([facility]) Arthritis Asthma ([facility]) Cataract Chronic kidney disease, stage 3b (HCC) ([facility]) Diabetes ([facility]) Diabetes mellitus with neuropathy ([facility]) Dry eyes GERD (gastroesophageal reflux disease) Hypertension ([facility]) Lymphedema of both lower extremities 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 Insulin long-term use (CMS/[facility]) Vitamin D deficiency Encounter for dietary consultation Diet and exercise reviewed with the patient Hyperlipemia, mixed (CMS/HCC) Primary hypertension ([facility]/HCC) Class 2 severe obesity due to excess calories with serious comorbidity and body mass index (BMI) of38.0 to 38.9 in adult ([facility]) Follow up in about 6 weeks (around 08/26/2024). documented in this encounterMercy McCune-Brooks [id number] History of Present illness Narrative* Mounika Brooke [...] Flowsheet Row Office Visit from 07/11/2024 in [facility] with Mounika Brooke MD Hospital Information ED, Hospital or Custodial Facility Discharge? ED Patient has been contacted within 1 week of being seen in the ED Yes Discharge Date 07/09/24 Discharged To: Home Setting Discharge [facility] Engagement Admission Date 07/09/24 Medications Discharge [...] No follow-ups on file. documented in this encounterMercy McCune-Brooks [id number] Hospital Discharge instructions Patient Education 07/09/2024 16:21:24 [...] told by your health care provider. Take zidv-ovf-tmohkaf and prescription medicines only as told by [...] provider. Document Revised: 04/14/2022 Document Reviewed: 04/14/2022 [employer] Patient Education 2023 [employer]. Follow Up Care 07/09/2024 14:36:54 With:Zak Quiñones Address: [address] [place], [place] [id number] Business (1) When:07/12/2024 16:10:31 [facility] 11-19-2024 NoteED Patient Education Note Orthopedics [...] by your health care provider. ??? Take rzbq-exv-pjwtqps and prescription medicines only as told by [...] (compression), and elevatingthe are (more content not included)...[facility]11-19-2024 Evaluation + Plan noteExtracted from:Title:ED Note Author:Rudi ENGLE, JansenDate:07/09/24 Left shoulder pain (M25.512: Pain in left shoulder) Tendinitis (M77.9: Enthesopathy, unspecified) Ordered: acetaminophen-oxycodone, 1 tab(s), Oral, q6hr as needed for pain for 3 day(s), 10 tab(s), Refill(s)0, [facility] #[id number], 183, cm, 07/09/24 14:44:00 EST, Height/Length Dosing, 132.4, kg, 07/09/24 14:44:00 EST, Weight Dosing Orders: acetaminophen-oxycodone, 1 tab(s), Tab, Oral, Once, Stop date 07/09/24 15:01:00 EST, STAT, Start date 07/09/24 15:01:00 EST Apply Sling XR Shoulder Complete Right Future Appointments Appointment Date:09/04/2024 03:15:00 PM Scheduled Provider:Taz THOMAS MD Location:[facility] Appointment Type:URO Office Visit [facility] 11-13-2024 History of Present illness Narrative* [...] timestamp. Flowsheet Row Documentation from 06/25/2024 in [facility] with Mary Alice Fortune MA Hospital Information ED, Hospital or Custodial Facility Discharge? ED Patient has been contacted within 1 week of being seen in the ED Yes Diagnosis Pneumonia Discharge Date 06/23/24 Discharged To: Home Setting Discharge [facility] Engagement Admission Date 06/23/24 Medications Discharge medications [...] or fail to improve. documented in this encounterMercy McCune-Brooks [id number] Telephone encounter Note* Telephone Encounter - HARPAL Barnes - 06/24/2024 11:07 AM EST Ok reviewed and we discussed at visit to try to get an earlier appt or talk with Dr. Murray staff [facility] [id number] Miscellaneous Notes* Telephone Encounter - HARPAL Barnes [...] as soon as possible? documented in this encounterMercy McCune-Brooks [id number] Telephone encounter Note* Telephone Encounter - Suzanna Smith MA - 06/24/2024 10:28 AM EST Patient is currently scheduled to see Dr. Sweeney 07-15-2024. [facility] [id number] Telephone encounter Note* Telephone Encounter - HARPAL Barnes - 06/24/2024 8:37 AM EST Please call patient I see he was in ER and diagnosed with pneumonia however his hgba1c was 14 and Iwanted to see if he made appt to see Dr. Murray as soon as possible? [facility] [id number] Hospital Discharge instructions Patient Education 06/23/2024 14:01:17 Community-Acquired Pneumonia, Adult, Kxyh-ov-Xajx Community-Acquired Pneumonia, Adult Pneumonia is an infection [...] Follow these instructions at home: Medicines Take bmxx-anu-jlngkhy and prescription medicines only as told by [...] cannot use soap and water, use hand change management administrator. Contact a doctor if: You have a [...] provider. Document Revised: 10/05/2022 Document Reviewed: 10/05/2022 [employer] Patient Education 2023 [employer]. 06/23/2024 14:01:17 Rib Contusion Rib Contusion A [...] risk for lung collapse and pneumonia. Medicines. Dinx-wpg-tsxwoos or prescription medicines may be given to control pain. Injection of a numbing medicine around the nerve near your injury (nerve block). Follow these instructions at home: Medicines Take mpmk-yab-sfjhhvt and prescription medicines only as told by your health care provider. Ask your health care provider if the medicine prescribed to you: ?Requires you to avoid driving or using machinery. ?Can cause constipation. You may need to take these actions to prevent or treat constipation: ?Drink enough fluid to keep your urine pale yellow. ?Take cfor-elk-frhijrg or prescription medicines. ?Eat foods that are [...] provider. Document Revised: 11/11/2020 Document Reviewed: 11/11/2020 [employer] Patient Education 2023 [employer]. Follow Up Care 06/23/2024 13:38:04 With:Mounika Brooke Address: [place] [place] [address]- Business (1) When:06/26/2024 13:54:07 Comments:Call for diagnosis based follow up [facility] 11-03-2024 NoteED Patient Education Note Infectious [...] these instructions at home: Medicines ??? Take dnes-czm-gtvnvht and prescription medicines only as told by [...] cannot use soap and water, use hand change management administrator. Contact a doctor if: ??? You have [...] lungs. ??? Community-acquired pneumonia (more content not included)...[facility]11-03-2024 Evaluation + Plan noteExtracted from:Title:ED Note Author:Paddy Betancourt PA-CDate:06/23/24 Contusion of rib on left [facility] (S20.212A: Contusion of left front wall of thorax, initial encounter) Pneumonia (J18.9: Pneumonia, unspecified organism) Orders: acetaminophen-oxycodone, 1 tab(s), Oral, q6hr for pain for 3 day(s), 12 tab(s), Refill(s) 0, [facility] #[id number], 183, cm, 06/23/24 13:45:00 EST, Height/Length Dosing, 143, kg, 06/23/24 13:45:00 EST, Weight Dosing doxycycline, 100 mg = 1 cap(s), Oral, BID, # 20 cap(s), Refills(s) 0, Pharmacy: [facility] #[id number], 183, cm, 06/23/24 13:45:00 EST, Height/Length Dosing, 143, kg, 06/23/24 13:45:00 EST, Weight Dosing Future Appointments Appointment Date:09/04/2024 03:15:00 PM Scheduled Provider:Taz THOMAS MD Location:[facility] Appointment Type:URO Office Visit [facility] 11-01-2024 History of Present illness Narrative* [...] He has an upcoming appointment with his associate professor of criminal justice, Dr. Sweeney. ALLERGIES He is allergic to PENICILLIN. MEDICATIONS: Current Outpatient Medications Medication Instructions albuterol HFA 90 mcg/act inhaler 2 puffs, Every 4 hours PRN atorvastatin (LIPITOR) 40 mg, Every 24 hours Continuous Blood Gluc Predictive Maintenance Technician (FreeStyle Sage 3 Opheim) device 1 each, Does not apply, Continuous [...] He is advised to consult with his associate professor of criminal justice, Dr. Sweeney, regarding his elevated blood sugar [...] needles has been renewed [facility]. Assessment/Plan Problem List Items Addressed This Visit [...] Influenza Vaccine (1) 04/21/2024 documented in this encounterMercy McCune-Brooks [id number] NoteTime Out 05/22/2024. 2:41 PM. Confirmed correct patient, procedure, site, and patient consented. Anesthesia Topical anesthesia was used. Anesthetic medications included Lidocaine 2%, Proparacaine 0.5%. Procedure Preparation included 5% betadine to ocular surface, eyelid speculum. Injection: 0.3 mg ranibizumab 0.3 MG/0.05ML Route: Intravitreal, Site: Left Eye [facility]: 10915-558-34, Lot: [id number], Expiration date: 04/29/2026, Waste: 0 mL Post-op [...] with increased pain, redness, decreased vision or concerns.[facility]-Bro[facility] HospitalJflkxxqhke85-64-6479 History of Present illness Narrative* PEDRO PABLO Her - 05/22/2024 2:00 PM EDT Images from the original note were not included. 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 Can we help with this [facility] [id number] Miscellaneous Notes* Telephone Encounter - Mounika Brooke MD - 04/29/2024 2:53 PM EDT Pt has at home oxygen - would benefit from portable oxygen. Can we help with this documented in this [facility]09-09-2024 History of Present illness Narrative* Mounika Brokoe MD - 04/29/2024 2:52 PM EDTAssociated Problem(s): [...] encouraged follow up with endo * Mounika Brooek MD - 04/29/2024 2:51 PM EDTAssociated Problem(s): [...] at the same time. Continuous Blood Gluc Predictive Maintenance Technician (FreeStyle Sage 3 Opheim) device 1 each continuously 1 each 0 [...] retinopathy associated with type 2 diabetes mellitus ([facility]) Encouraged follow up with optho Diabetic neuropathy ([facility]) Stable, continue to monitor. No change in regimen. Gastroesophageal reflux disease Stable, continue to monitor. No change in regimen. Hyperlipidemia ([facility]) Stable, continue to monitor. No change in regimen. Hypertension ([facility]) Stable, continue to monitor. No change in regimen. Long-term insulin use ([facility]) Morbid obesity ([facility]) - continue to monitor weight Restless leg syndrome Currently uncontrolled as pt is out of meds. Refill sent of increased dose Stage 3b chronic kidney disease (HCC) ([facility]) Stable, continue to monitor. No change in regimen. Type 2 diabetes mellitus with hyperglycemia ([facility]) - Uncontrolled, A1c > 13 - encouraged follow up with endo Varicose veins of lower extremity Continue to follow w/ vascular TC (obstructive sleep apnea) Stable, continue to monitor. No change in regimen. Chronic hypoxemic respiratory failure ([facility]) Stable, continue to monitor. No change in regimen. Acute on chronic respiratory failure with hypoxia and hypercapnia ([facility]) Stable, continue to monitor. No change in regimen. Discussed concerning sx to monitor for. Continue oxygen use - pt would benefit from portable oxygen Obesity hypoventilation syndrome ([facility]) Other Visit Diagnoses Encounter for Medicare annual wellness exam - Primary RLS (restless legs syndrome) Relevant Medications rOPINIRole (Requip) 2 MG tablet Oxygen dependent BMI 40.0-44.9, adult ([facility]) The following health maintenance schedule was reviewed [...] in this encounter. documented in this encounterNOMS [id number] NoteTime Out 04/23/2024. 11:05 AM. Confirmed correct patient, procedure, site, and patient consented. Anesthesia Topical anesthesia was used. Anesthetic medications included Lidocaine 2%, Proparacaine 0.5%. Procedure Preparation included 5% betadine to ocular surface, eyelid speculum. Injection: 0.3 mg ranibizumab 0.3 MG/0.05ML Route: Intravitreal, Site: Left Eye [facility]: [id number], Lot: [id number], Expiration date: 04/29/2026, Waste: 0 mL Post-op [...] with increased pain, redness, decreased vision or concerns.[facility] [id number] History of Present illness Narrative* Perlita Meeks MD - 04/23/2024 10:45 AM EDT Assessment/Plan documented in this encounterNOMS [id number] History of Present illness Narrative* Perlita Meeks MD - 04/15/2024 2:30 PM EDT Assessment/Plan begin anti vegf documented in this [facility]07-10-2024 Hospital Discharge instructions Follow Up Care 02/28/2024 08:07:26 With:MARTHA LYMAN, Taz Abraham, URL Address: [address] [address]- When: Unknown [facility] 07-10-2024 Hospital Discharge instructions Patient Education [...] urethra. Follow these instructions at home: Take xove-cpm-dsqmybe and prescription medicines only as told by [...] provider. Document Revised: 02/23/2022 Document Reviewed: 02/23/2022 [employer] Patient Education 2022 [employer]. Follow Up Care 02/05/2024 13:59:39 With:MARTHA LYMAN, Taz Abraham, URL Address: [facility] [address] [address]- When: Unknown [facility] 06-17-2024 Hospital Discharge instructions Patient Education [...] Care 11/20/2023 14:00:17 With:Taz THOMAS Address: [address] [facility] (1) When: Unknown Comments:Please arrange for a follow-up next week so we can remove your catheter for a voiding trial.Some discharge instructions have been provided.Push fluids to keep the urine clear. Rickey [facility]06-17-2024 Note [id number]#1.00[facility] 01-15-2024 Hospital Discharge instructions Patient [...] provider. Document Revised: 10/27/2021 Document Reviewed: 07/23/2021 [employer] Patient Education 2021 [employer]. Follow Up Care 01/15/2024 16:18:08 With:REID BROOKE Address: [facility] [address] [address]- Business (1) When:Within 3 Day(s) [facility]04-04-2024 NoteHNO ID: [id number] Author: ESAU TRUONG APRN.LEARNING AND DEVELOPMENT DIRECTOR Service: ? Author Type: Nurse Specialist Type: Progress Notes Filed: 11/29/2023 07:04 Note Text: [facility] NOTE NAME: [facility] NO.: [id number] DATE OF SERVICE: 11/23/2023 ATTENDING PHYSICIAN: MO Yip [facility] Chart Note REASON FOR VISIT: The patient is a resident of [facility]. This is a skilled visit for [...] sliding scale. DICTATED BY: MO Yip/AQT JOB# [id number] [facility]04-04-2024 History of Present illness Narrative* Esau Truong APRN.MO - 11/23/2023 12:00 AM EDT [facility] NOTE NAME: [facility] NO.: [id number] DATE OF SERVICE: 11/23/2023 ATTENDING PHYSICIAN: MO Yip [facility] Chart Note REASON FOR VISIT: The patient is a resident of [facility]. This is a skilled visit for COPD with respiratory failure history and other medical concerns. Upon entering theroo, found the patient calm, alert, sitting in bed. The patient just completed morning meal. The patient does not appear to be in distress or discomfort. The patient states feels well today. [facility] has been working with therapy and feels good. The patient states has no pain, no cough, no shortnessof breath. No fever, chills, or nausea. States his appetite is good and bowels have been moving. [facility] has been drinking fluids. Denies urinary symptoms. [...] scale. DICTATED BY: MO Yip KE/SUSYT JOB# [id number] [facility] documented [facility] Evaluation + Plan note Extracted from:Title:[facility] visitAuthor:Taz THOMAS MD PDate:11/20/23 Impression and Plan Assessment and Plan: Diagnosis: BPH with obstruction/lower urinary tract symptoms (CJB26-IS N40.1, Billing Diagnosis, Medical), Other obstructive and reflux uropathy (DCR57-OY N13.8, Discharge, Medical), Feeling of incomplete bladder emptying (QGU24-KJ R39.14, Billing Diagnosis, Medical), Urinary re tention (FFK38-VG R33.9, Billing Diagnosis, Medical). Additional Plan of [...] Appointments Appointment Date:01/31/2024 10:30:00 AM Scheduled Provider: Location:[facility] Appointment Type:Urology CALL PAT FT Appointment Date:02/05/2024 01:15:00 PM Scheduled Provider: Location:[facility] Appointment Type:Urology FT Future Scheduled Tests Radiology* XR Chest 2 Views 05/15/23 * XR Chest 2 Views 05/15/23 [facility]04-01-2024 NoteHNO ID: [id number] Author: ALVARO HERRERA, ? Service: ? Author Type: Physician Type: Progress Notes Filed: 11/22/2023 11:38 Note Text: [facility] NOTE NAME: [facility] NO.: [id number] DATE OF SERVICE: 11/20/2023 ATTENDING PHYSICIAN: Alvaro Herrera MD [facility] PATIENT HISTORY AND PHYSICAL: HISTORY OF PRESENT ILLNESS: The patient is a 63-year-old male, who is admitted to us from [facility] with a diagnosis of altered mental status [...] with hypernatremia and hyperkalemia-we (more content not included)...[facility] 11-20-2023 [id number]#1.00[facility] [id number]#1.00TIFF [facility]04-01-2024 History of Present illness Narrative* Alvaro Herrera - 11/20/2023 12:[address] [facility] NOTE NAME: [facility] NO.: [id number] DATE OF SERVICE: 11/20/2023 ATTENDING PHYSICIAN: Alvaro Herrera MD [facility] PATIENT HISTORY AND PHYSICAL: HISTORY OF PRESENT ILLNESS: The patient is a 63-year-old male, who is admitted to us from [facility] with a diagnosis of altered mental [...] himself. DICTATED BY: MD KORI Cho/MARCIA JOB# [id number] [facility] documented in this encounterJoint [facility]03-[facility]-2024 Progress note Author Hood Zacarias [facility] November 17, 2023 12:18pmNote Date/TimeMarch 2023 12:18pm[place] [address] Nephrology Progress Note Signed Patient: Nicole Lora MR#: [id number] [birth year] : 1960 Acct:[id number] Age/Sex: 63 / M Adm Date: 4 Loc: Room: [address] [place] [address] Type: ADM IN Attending Dr: Manish Fu MD Copies to: ~ Date of Service: 11/17/2023 Subjective Subjective Narrative: This is a 63-year-old male with a medical history of CKD, DM, HTN, TC, COPD, CHF was transferred from [facility] for shortness of breath and hypercapnic respiratory failure. Patient was admitted at [facility] on September 2023 for COPD and CHF. During hospitalization he wasalso found to have AMY on CKD due to the cardiorenal syndrome. His renal function improved with diuresis. Patient was also found to have urine retentionand had Elliott catheter. Patient was readmitted at [facility] and his diuretic regimen was adjusted. His labs in ER showed AMY with serum creatinine 4.9 mg/dL and hyperkalemia with serum potassium 5.3 mmol/L and anion gap of 18. Patient ABG showed pH 7.25 pCO2 58 oxygen saturation 57. He was placed on BiPAP briefly. Patient on arrival at [facility] had ABG which showed pH 7.19, pCO2 [...] 3 Ml Ampul.Neb) 3 ml INHALATION QID.RESP [facility] Stop: 11/12/24 19:59 Last Admin: 11/17/23 08:11 Dose: 3 ml Atorvastatin Calcium (Atorvastatin 40 Mg Tablet) 40 mg PO QHS [facility] Stop: 11/12/24 21:59 Last Admin: 11/16/23 21:29 Dose: 40 mg Budesonide (Budesonide 0.5 Mg/2 Ml Ampul.Neb) 0.5 mg INHALATION BID [facility] Stop: 11/12/24 20:59 Last Admin: 11/17/23 08:11 Dose: 0.5 mg Dextrose (Dextrose 50% In Water 25 Gm/50 Ml Syringe) 0 gm IV-PUSH PRN PRN PRN Reason: Hypoglycemia Stop: 11/10/24 20:56 Duloxetine HCl (Duloxetine 60 Mg Capsule.Dr) 60 mg PO DAILY [facility] Stop: 11/13/24 08:59 Last Admin: 11/17/23 09:13 Dose: 60 mg Gabapentin (Gabapentin 300 Mg Capsule) 300 mg PO QHS [facility] Stop: 11/14/24 21:59 Last Admin: 11/16/23 21:02 Dose: Not Given Glucose (Dextrose 40% Gel 15 Gm Tube) 0 gm PO PRN PRN PRN Reason: Hypoglycemia Stop: 11/10/24 20:56 Last Admin: 11/12/23 17:38 Dose: 30 gm Guaifenesin (Guaifenesin 600 Mg Tab.Er.12h) 1,200 mg PO BID [facility] Stop: 11/12/24 20:59 Last Admin: 11/17/23 09:13 Dose: 1,200 mg Hydralazine HCl (Hydralazine 10 Mg Tablet) 10 mg PO BID [facility] Stop: 11/12/24 20:59 Last Admin: 11/17/23 09:13 Dose: 10 mg Fluconazole (Diflucan) 200 mg in 100 mls @ 100 mls/hr IV Q24H [facility] Last Admin: 11/16/23 14:09 Dose: 100 mls/hr Ceftriaxone Sodium (Rocephin) 1 gm in 50 mls @ 100 mls/hr IV Q24H [facility] Last Admin: 11/16/23 13:20 Dose: 100 mls/hr Insulin Aspart (Insulin Aspart 300 Units/3 Ml Insuln.Pen) 0 units SUBCUT TID.WM.HS [facility]; Protocol Stop: 11/10/24 21:59 Last Admin: 11/17/23 [...] 40 Mg Tablet.Dr) 40 mg PO DAILY [facility] Stop: 11/13/24 08:59 Last Admin: 11/17/23 09:13 Dose: 40 mg Sennosides (Sennosides 8.6 Mg Tablet) 1 tab PO BID [facility] Stop: 11/10/24 20:59 Last Admin: 11/17/23 09:13 Dose: 1 tab Tamsulosin HCl (Tamsulosin 0.4 Mg Cap.Er.24h) 0.4 mg PO DAILY [facility] Stop: 11/13/24 08:59 Last Admin: 11/17/23 09:13 Dose: 0.4 mg Torsemide (Torsemide 20 Mg Tablet) 40 mg PO DAILY@0800 [facility] Stop: 11/13/24 09:44 Last Admin: 11/17/23 09:13 [...] MD Hood Zacarias> 11/17/23 1218 [facility] Work Phone: 1(259) 554-573703-28-2024 Progress note Author Manish Fu [facility] November 16, 2023 2:26pmNote Date/TimeMarch 2023 1:42pm[place] [address] Hospitalist Progress Note Signed Patient: Nicole Lora MR#: [id number] [birth year] : 1960 Acct:[id number] Age/Sex: 63 / M Adm Date: 4 Loc: Room: [address] [place] [address] Type: ADM IN Attending Dr: Manish Fu [...] signed by Manish Fu MD> 11/16/23 1426 [facility] Work Phone: 1([phone] 824-203703-28-2024 Progress note Author Hood [facility] November 16, 2023 12:15pmNote Date/TimeMarch 2023 12:15pmCast[place] [address] Nephrology Progress Note Signed Patient: Nicole Lora MR#: [id number] [birth year] : 1960 Acct:[id number] Age/Sex: 63 / M Adm Date: 4 Loc: Room: [address] [place] [address] Type: ADM IN Attending Dr: Manish Fu MD Copies to: ~ Date of Service: 11/16/2023 Subjective Subjective Narrative: This is a 63-year-old male with a medical history of CKD, DM, HTN, TC, COPD, CHF was transferred from [facility] for shortness of breath and hypercapnic respiratory failure. Patient was admitted at [facility] on September 2023 for COPD and CHF. During hospitalization he wasalso found to have AMY on CKD due to the cardiorenal syndrome. His renal function improved with diuresis. Patient was also found to have urine retentionand had Elliott catheter. Patient was readmitted at [facility] and his diuretic regimen was adjusted. His labs in ER showed AMY with serum creatinine 4.9 mg/dL and hyperkalemia with serum potassium 5.3 mmol/L and anion gap of 18. Patient ABG showed pH 7.25 pCO2 58 oxygen saturation 57. He was placed on BiPAP briefly. Patient on arrival at [facility] had ABG which showed pH 7.19, pCO2 [...] 40 Mg Tablet) 40 mg PO QHS [facility] Stop: 11/12/24 21:59 Last Admin: 11/15/23 21:12 Dose: 40 mg Budesonide (Budesonide 0.5 Mg/2 Ml Ampul.Neb) 0.5 mg INHALATION BID [facility] Stop: 11/12/24 20:59 Last Admin: 11/16/23 07:40 Dose: 0.5 mg Dextrose (Dextrose 50% In Water 25 Gm/50 Ml Syringe) 0 gm IV-PUSH PRN PRN PRN Reason: Hypoglycemia Stop: 11/10/24 20:56 Duloxetine HCl (Duloxetine 60 Mg Capsule.) 60 mg PO DAILY [facility] Stop: 11/13/24 08:59 Last Admin: 11/16/23 09:08 [...] 10 Mg Tablet) 10 mg PO BID [facility] Stop: 11/12/24 20:59 Last Admin: 11/16/23 09:08 Dose: 10 mg Fluconazole (Diflucan) 200 mg in 100 mls @ 100 mls/hr IV Q24H [facility] Last Admin: 11/15/23 18:00 Dose: 100 mls/hr Ceftriaxone Sodium (Rocephin) 1 gm in 50 mls @ 100 mls/hr IV Q24H [facility] Insulin Aspart (Insulin Aspart 300 Units/3 Ml Insuln.Pen) 0 units SUBCUT TID.WM.HS [facility]; Protocol Stop: 11/10/24 21:59 Last Admin: 11/16/23 09:08 Dose: Not Given Insulin Glargine (Insulin Glargine 300 Units/3 Ml Insuln.Pen) 35 units SUBCUT QHS [facility] Stop: 11/10/24 21:59 Last Admin: 11/15/23 21:14 [...] 40 Mg Tablet.Dr) 40 mg PO DAILY [facility] Stop: 11/13/24 08:59 Last Admin: 11/16/23 09:07 Dose: 40 mg Sennosides (Sennosides 8.6 Mg Tablet) 1 tab PO BID [facility] Stop: 11/10/24 20:59 Last Admin: 11/16/23 09:07 Dose: 1 tab Tamsulosin HCl (Tamsulosin 0.4 Mg Cap.Er.24h) 0.4 mg PO DAILY [facility] Stop: 11/13/24 08:59 Last Admin: 11/16/23 09:08 Dose: 0.4 mg Torsemide (Torsemide 20 Mg Tablet) 40 mg PO DAILY@0800 [facility] Stop: 11/13/24 09:44 Last Admin: 11/16/23 09:08 [...] signed by MD Hood Zacarias> 11/16/23 1215 [facility] Work Phone: 1(474) 392-440703-27-2024 Progress note Author Hood Zacarias [facility] November 15, 2023 1:58pmNote Date/TimeMarch 2023 1:58pmDanielle [place] [id number] Nephrology Progress Note Signed Patient: Nicole Lora MR#: [id number] [birth year] : 1960 Acct:[id number] Age/Sex: 63 / M Adm Date: 4 Loc: 4 Room: [address] [place] [address] Type: ADM IN Attending Dr: Manish Fu MD Copies to: ~ Date of Service: 11/15/2023 Subjective Subjective Narrative: This is a 63-year-old male with a medical history of CKD, DM, HTN, TC, COPD, CHF was transferred from [facility] for shortness of breath and hypercapnic respiratory failure. Patient was admitted at [facility] on September 2023 for COPD and CHF. During hospitalization he wasalso found to have AMY on CKD due to the cardiorenal syndrome. His renal function improved with diuresis. Patient was also found to have urine retentionand had Elliott catheter. Patient was readmitted at [facility] and his diuretic regimen was adjusted. His labs in ER showed AMY with serum creatinine 4.9 mg/dL and hyperkalemia with serum potassium 5.3 mmol/L and anion gap of 18. Patient ABG showed pH 7.25 pCO2 58 oxygen saturation 57. He was placed on BiPAP briefly. Patient on arrival at [facility] had ABG which showed pH 7.19, pCO2 [...] 3 Ml Ampul.Neb) 3 ml INHALATION QID.RESP [facility] Stop: 11/12/24 19:59 Last Admin: 11/15/23 11:28 Dose: 3 ml Atorvastatin Calcium (Atorvastatin 40 Mg Tablet) 40 mg PO QHS [facility] Stop: 11/12/24 21:59 Last Admin: 11/14/23 21:10 Dose: 40 mg Budesonide (Budesonide 0.5 Mg/2 Ml Ampul.Neb) 0.5 mg INHALATION BID [facility] Stop: 11/12/24 20:59 Last Admin: 11/15/23 09:00 Dose: 0.5 mg Dextrose (Dextrose 50% In Water 25 Gm/50 Ml Syringe) 0 gm IV-PUSH PRN PRN PRN Reason: Hypoglycemia Stop: 11/10/24 20:56 Duloxetine HCl (Duloxetine 60 Mg Capsule.Dr) 60 mg PO DAILY [facility] Stop: 11/13/24 08:59 Last Admin: 11/15/23 08:14 Dose: 60 mg Gabapentin (Gabapentin 300 Mg Capsule) 300 mg PO QHS [facility] Stop: 11/14/24 21:59 Glucose (Dextrose 40% Gel 15 Gm Tube) 0 gm PO PRN PRN PRN Reason: Hypoglycemia Stop: 11/10/24 20:56 Last Admin: 11/12/23 17:38 Dose: 30 gm Guaifenesin (Guaifenesin 600 Mg Tab.Er.12h) 1,200 mg PO BID [facility] Stop: 11/12/24 20:59 Last Admin: 11/15/23 08:14 Dose: 1,200 mg Hydralazine HCl (Hydralazine 10 Mg Tablet) 10 mg PO BID [facility] Stop: 11/12/24 20:59 Last Admin: 11/15/23 08:14 Dose: 10 mg Fluconazole (Diflucan) 200 mg in 100 mls @ 100 mls/hr IV Q24H [facility] Insulin Aspart (Insulin Aspart 300 Units/3 Ml Insuln.Pen) 0 units SUBCUT TID.WM.HS [facility]; Protocol Stop: 11/10/24 21:59 Last Admin: 11/15/23 08:15 Dose: Not Given Insulin Glargine (Insulin Glargine 300 Units/3 Ml Insuln.Pen) 35 units SUBCUT QHS [facility] Stop: 11/10/24 21:59 Last Admin: 11/14/23 21:10 [...] 40 Mg Tablet.Dr) 40 mg PO DAILY [facility] Stop: 11/13/24 08:59 Last Admin: 11/15/23 08:14 Dose: 40 mg Sennosides (Sennosides 8.6 Mg Tablet) 1 tab PO BID [facility] Stop: 11/10/24 20:59 Last Admin: 11/15/23 08:15 Dose: 1 tab Tamsulosin HCl (Tamsulosin 0.4 Mg Cap.Er.24h) 0.4 mg PO DAILY [facility] Stop: 11/13/24 08:59 Last Admin: 11/15/23 08:14 Dose: 0.4 mg Torsemide (Torsemide 20 Mg Tablet) 40 mg PO DAILY@0800 [facility] Stop: 11/13/24 09:44 Last Admin: 11/15/23 08:14 [...] is current on ceftriaxone. Urine culture from Ellitot catheter showed Enterobacter [place] complex and Kaelyn albicans. Patient has indwelling Elliott catheter and he is supposed to follow-up with urology for cystometric and cystoscopy as outpatient. * Check renal function daily monitor input output Documented By: Hood Zacarias MD 11/15/23 3859 Signed By: <Electronically signed by MD Hood Zacarias> 11/15/23 9471 [facility] Work Phone: 1(843) 900-687703-27-2024 Progress note Author Manish Fu [facility] November 15, 2023 1:27pmNote Date/TimeMarch 2023 12:20pm[address] [address] Hospitalist Progress Note Signed Patient: Nicole Lora MR#: [id number] [birth year] : 1960 Acct:[id number] Age/Sex: 63 / M Adm Date: 4 Loc: Room: [address] [place] [address] Type: ADM IN Attending Dr: Manish Fu [...] Insuln.Pen SUBCUT 11/10/24 21:59 Not Given TID.WM.HS [facility] Protocol Insulin Glargine 35 units 11/11/23 22:00 [...] Manish Fu MD> 11/15/23 1327 [facility] Work Phone: 1(894) 936-148803-26-2024 Progress note Author Manish Fu [facility] November 14, 2023 8:19pmNote Date/TimeMarch 2023 8:08pm[place] [address] Hospitalist Progress Note Signed Patient: Nicole Lora MR#: [id number] [birth year] : 1960 Acct:[id number] Age/Sex: 63 / M Adm Date: 4 Loc: Room: [address] [place] [address] Type: ADM IN Attending Dr: Manish Fu [...] Insuln.Pen SUBCUT 11/10/24 21:59 Not Given TID.WM.HS [facility] Protocol Insulin Glargine 35 units 11/11/23 22:00 [...] by Manish Fu MD> 11/14/232018 [facility] Work Phone: 1(628) 610-169203-26-2024 Progress note Author Hood Zacarias [facility] November 14, 2023 1:34pmNote Date/TimeMarch 2023 1:34pm[place] [address] Nephrology Progress Note Signed Patient: Nicole Lora MR#: [id number] [birth year] : 1960 Acct:[id number] Age/Sex: 63 / M Adm Date: Loc: Room: [address] [place] [address] Type: ADM IN Attending Dr: Manish Fu MD Copies to: ~ Date of Service: 11/14/2023 Subjective Subjective Narrative: This is a 63-year-old male with a medical history of CKD, DM, HTN, TC, COPD, CHF was transferred from [facility] for shortness of breath and hypercapnic respiratory failure. Patient was admitted at [facility] on September 2023 for COPD and CHF. During hospitalization he wasalso found to have AMY on CKD due to the cardiorenal syndrome. His renal function improved with diuresis. Patient was also found to have urine retentionand had Elliott catheter. Patient was readmitted at [facility] and his diuretic regimen was adjusted. His labs in ER showed AMY with serum creatinine 4.9 mg/dL and hyperkalemia with serum potassium 5.3 mmol/L and anion gap of 18. Patient ABG showed pH 7.25 pCO2 58 oxygen saturation 57. He was placed on BiPAP briefly. Patient on arrival at [facility] had ABG which showed pH 7.19, pCO2 [...] Mg/2 Ml Ampul.Neb) 0.5 mg INHALATION BID [facility] Stop: 11/12/24 20:59 Last Admin: 11/14/23 07:35 Dose: 0.5 mg Dextrose (Dextrose 50% In Water 25 Gm/50 Ml Syringe) 0 gm IV-PUSH PRN PRN PRN Reason: Hypoglycemia Stop: 11/10/24 20:56 Duloxetine HCl (Duloxetine 60 Mg Capsule.Dr) 60 mg PO DAILY [facility] Stop: 11/13/24 08:59 Last Admin: 11/14/23 08:10 Dose: 60 mg Glucose (Dextrose 40% Gel 15 Gm Tube) 0 gm PO PRN PRN PRN Reason: Hypoglycemia Stop: 11/10/24 20:56 Last Admin: 11/12/23 17:38 Dose: 30 gm Guaifenesin (Guaifenesin 600 Mg Tab.Er.12h) 1,200 mg PO BID [facility] Stop: 11/12/24 20:59 Last Admin: 11/14/23 08:10 Dose: 1,200 mg Hydralazine HCl (Hydralazine 10 Mg Tablet) 10 mg PO BID [facility] Stop: 11/12/24 20:59 Last Admin: 11/14/23 08:10 Dose: 10 mg Ceftriaxone Sodium (Rocephin) 2 gm in 50 mls @ 100 mls/hr IV Q24H [facility] Stop: 11/15/23 08:29 Last Admin: 11/14/23 08:11 Dose: 100 mls/hr Insulin Aspart (Insulin Aspart 300 Units/3 Ml Insuln.Pen) 0 units SUBCUT TID.WM.HS [facility]; Protocol Stop: 11/10/24 21:59 Last Admin: 11/14/23 12:41 Dose: Not Given Insulin Glargine (Insulin Glargine 300 Units/3 Ml Insuln.Pen) 35 units SUBCUT QHS [facility] Stop: 11/10/24 21:59 Last Admin: 11/13/23 21:13 [...] 40 Mg Tablet.Dr) 40 mg PO DAILY [facility] Stop: 11/13/24 08:59 Last Admin: 11/14/23 08:10 [...] Urine culture from Elliott catheter showed Enterobacter [place] complex and Kaelyn albicans. * Continue Elliott care for now. Will give a trial of void with bladder scan once renal function stabilizes diuretics. * Check renal function daily monitor input output Documented By: Hood Zacarias MD 11/14/23 4926 Signed By: <Electronically signed by MD Hood Zacarias> 11/14/23 0041 [facility] Work Phone: 1(512) 172-973903-25-2024 Progress note Author Manish Fu [facility] November 13, 2023 7:32pmNote Date/TimeMarch 2023 5:35pm[place] [address] Hospitalist Progress Note Signed with Addenda Patient: Nicole Lora MR#: [id number] [birth year] : 1960 Acct:[id number] Age/Sex: 63 / M Adm Date: 4 Loc: Room: [address] [place] [address] Type: ADM IN Attending Dr: Manish Fu [...] Insuln.Pen SUBCUT 11/10/24 21:59 Not Given TID.WM.HS [facility] Protocol Insulin Glargine 35 units 11/11/23 22:00 [...] bedside. Documented By: Manish Fu MD 4 [id number] Signed By: <Electronically signed by Manish Fu MD> 11/13/23 6902 [facility] Work Phone: 1(863) 253-342803-25-2024 Progress note Author Hood Zacarias [facility] November 13, 2023 2:24pmNote Date/TimeMar2023 2:24pmCast[place] [address] Nephrology Progress Note Signed Patient: Nicole Lora MR#: [id number] [birth year] : 1960 Acct:[id number] Age/Sex: 63 / M Adm Date: 4 Loc: Room: [address] [place] [address] Type: ADM IN Attending Dr: Manish Fu MD Copies to: ~ Date of Service: 11/13/2023 Subjective Subjective Narrative: This is a 63-year-old male with a medical history of CKD, DM, HTN, TC, COPD, CHF was transferred from [facility] for shortness of breath and hypercapnic respiratory failure. Patient was admitted at [facility] on September 2023 for COPD and CHF. During hospitalization he wasalso found to have AMY on CKD due to the cardiorenal syndrome. His renal function improved with diuresis. Patient was also found to have urine retentionand had Elliott catheter. Patient was readmitted at [facility] and his diuretic regimen was adjusted. His labs in ER showed AMY with serum creatinine 4.9 mg/dL and hyperkalemia with serum potassium 5.3 mmol/L and anion gap of 18. Patient ABG showed pH 7.25 pCO2 58 oxygen saturation 57. He was placed on BiPAP briefly. Patient on arrival at [facility] had ABG which showed pH 7.19, pCO2 [...] 50 mls @ 100 mls/hr IV Q24H [facility] Stop: 11/15/23 08:29 Last Admin: 11/13/23 09:17 Dose: 100 mls/hr Insulin Aspart (Insulin Aspart 300 Units/3 Ml Insuln.Pen) 0 units SUBCUT TID.WM.[facility]; Protocol Stop: 11/10/24 21:59 Last Admin: 11/13/23 14:08 Dose: Not Given Insulin Glargine (Insulin Glargine 300 Units/3 Ml Insuln.Pen) 35 units SUBCUT QHS [facility] Stop: 11/10/24 21:59 Last Admin: 11/12/23 21:43 [...] Migue Wild M.D.11/12/2023 2:47 PM Dictation Location: [place] [address] Any impression(s) listed above is documentation that [...] Urine culture from Elliott catheter showed Enterobacter [place] complex and Kaelyn albicans. * Continue DM management as per the primary hospitalist team. The goal of blood sugar is 100 to 150mg/dL. * Continue Elliott care. * Check renal function daily monitor input output Documented By: Hood Zacarias MD 11/13/23 141 Signed By: <Electronically signed by MD Hood Zacarias> 11/13/23 142 [facility] Work Phone: 1(152) 170-855003-24-2024 Progress note Author Durga Loza [facility] November 12, 2023 1:45pmNote Date/TimeMarch 2023 1:45pm[place] [address] Hospitalist Progress Note Signed Patient: Nicole Lora MR#: [id number] 29 : 1960 Acct:[id number] Age/Sex: 63 / M Adm Date: 4 Loc: 4 Room: [address] [place] [address] Type: ADM IN Attending Dr: Durga Loza [...] was arousable and talking in right sentences. [facility] computer system was downsocx-ray of the chest and renal ultrasound could not be performed yet. ON ADMISSION: Mr Lora is a 63-year-old male with past medical history of CKD stage III, diabetes type 2, CT, COPD, CHF with preserved ejection fraction [facility] [...] who says that the patientwas [facility] week later after discharge from our facility and there was some adjustments to his diuretic therapy howevershe is not sure what the new medication was, medication list received from [facility] emergency room note shows Lasix 40 mg [...] leaking at home for a while. At [facility] he did receive 2 L of IV fluids and then subsequently transferred here for a nephrologyconsult. His labs at [facility] were notable for BUN of 76 and [...] Daughter, Davin she can be reached at [phone] Documented By: Durga Loza MD 11/12/231341 Signed By: <Electronically signed by Durga Loza MD> 11/12/23 1345 [facility] Work Phone: 1(592) 180-859603-24-2024 Consult note Author Bladimir Story [facility] November 12, 2023 11:53amNote Date/TimeMarch 2023 11:31[place] [address] Nephrology Consult Note Signed Patient: Nicole Lora MR#: [id number] 29 : 1960 Acct:[id number] Age/Sex: 63 / M Adm Date: 4 Loc: Room: [address] [place] [address] Type: ADM IN Attending Dr: Durga Loza MD Copies to: MD Mounika Limon MD, MD~ Providers Consult Date: 11/12/23 Requesting Provider: Durga Loza MD Primary Care Provider: Mounika Brooke MD HPI Reason for Consult: AMY on CKD History of Present Illness: This is a 63-year-old male with a medical history of CKD, DM, HTN, TC, COPD, CHF was transferred from [facility] for shortness of breath and hypercapnic respiratory failure. Patient was admitted at [facility] 2023 for COPD and CHF. During hospitalizationhe was also found to have AMY on CKD due to the cardiorenal syndrome. His renal function improved with diuresis. Patient was also found to have urine retentionand had Elliott catheter. Patient was readmitted at [facility] and his diuretic regimen was adjusted. His labs in ER showed AMY with serum creatinine 4.9 mg/dL and hyperkalemia with serum potassium 4.3 mmol/L and aniongap of 18. Patient ABG showed pH 7.25 pCO2 58 oxygen saturation 57. He was placed on BiPAP briefly.Patient on arrival at [facility] had ABG which showed pH 7.19, pCO2 [...] denies any itching or rash [facility] Medical History (Updated 11/12/23 @ 11:27 by [...] 5,000 Unit/Ml Vial) 5,000 unit SUBCUT Q8HR [facility] Stop: 11/10/24 21:59 Last Admin: 11/12/23 07:27 Dose: Not Given Ceftriaxone Sodium (Rocephin) 2 gm in 50 mls @ 100 mls/hr IV Q24H [facility] Stop: 11/15/23 08:29 Last Admin: 11/12/23 10:17 Dose: 100 mls/hr Insulin Aspart (Insulin Aspart 300 Units/3 Ml Insuln.Pen) 0 units SUBCUT TID.WM.HS [facility]; Protocol Stop: 11/10/24 21:59 Last Admin: 11/12/23 10:16 Dose: 2 units Insulin Aspart (Insulin Aspart 300 Units/3 Ml Insuln.Pen) 12 units 0.083 units/kg (12 units) SUBCUTTID.AC [facility] Stop: 11/11/24 07:29 Last Admin: 11/12/23 10:16 Dose: 12 units Insulin Glargine (Insulin Glargine 300 Units/3 Ml Insuln.Pen) 35 units SUBCUT QHS [facility] Stop: 11/10/24 21:59 Last Admin: 11/11/23 22:51 [...] 8.6 Mg Tablet) 1 tab PO BID [facility] Stop: 11/10/24 20:59 Last Admin: 11/12/23 10:16 [...] , warm to touch LEARNING AND DEVELOPMENT DIRECTOR: Awake,Alert, following simple command Musculoskeletal: No swelling or limitation of movement of the large joints Psychiatric: Cooperative, normal mood and affect Results - Nephrology Labs 11/12/23 04:54 11/12/23 04:54 Labs: 11/11/23 11/11/23 11/12/23 19:27 22:20 04:54 BUN 78 H 80 H Creatinine 4.63 H 4.44 H Albumin 3.4 L Urine Color [place] A Urine Appearance Turbid A Urine pH 5.0 Ur Specific [place] 1.017 Urine Protein 100 H Urine Glucose [...] signed by Bladimir Story MD> 11/12/23 1153 [facility] Work Phone: 1(333) 858-800203-23-2024 History and physical note Author Tera Nevarez [facility] November 11, 2023 9:06pmNote Date/TimeMarch 2023 8:03[place] [address] Hospitalist H&P Signed with Addosvaldo Patient: Nicole Lora MR#: [id number] [birth year] : 1960 Acct:[id number] Age/Sex: 63 / M Adm Date: 4 Loc: Room: [address] [place] [address] Type: ADM IN Attending Dr: Tera Nevarez [...] who says that the patientwas admitted to [facility] roughly 1 week later after discharge [...] leaking at home for a while. At [facility] he did receive 2 L of IV fluids and then subsequently transferred here for a nephrologyconsult. His labs at [facility] were notable for BUN of 76 and [...] noted below or in HPI [facility] Medical History (Updated 11/11/23 @ 20:47 by [...] Lymph % (Auto) 14.5 % (.) 11/11/23: [place] % (Auto) 9.1 % (.) 11/11/23: Eos % (Auto) 2.1 % (.) 11/11/23 Baso % (Auto) 0.7 % (.) 11/11/23 Nucleat RBC Rel Count 0.1 /100 WBC (0-0.5) 11/11/23 Neut # (Auto) 5.4 x10E3/uL (1.8-7.7) 11/11/23 Lymph # (Auto) 1.1 x10E3/uL (1.00-4.8) 11/11/23: [place] # (Auto) 0.7 x10E3/uL (0.0-0.8) 11/11/23 Eos [...] daughter, Davin she can be reached at [phone] IP vs OBS Justification Based on differential dx, clinical care plan, and risk of adverse events, if untreated, in my clinical judgement this patient requires an acute care setting as: INPATIENT because of an expectation ofan over 2 midnight stay. Estimated length of stay (# of days): 3 Documented By: Tera Nevarez DO 11/11/232000 Signed By: <Electronically signed by Tera Nevarez DO> 11/11/232052 [facility] Work Phone: 1(892) 285-595903-23-2024 Evaluation + Plan noteExtracted from:Title: ED NoteAuthor:Paddy [...] Appointments Appointment Date:11/16/2023 09:00:00 AM Scheduled Provider: Location:[facility] Appointment Type:Urology CALL PAT FT Appointment Date:11/20/2023 12:00:00 PM Scheduled Provider: Location:[facility] Appointment Type:Urology FT Appointment Date:11/20/2023 01:15:00 PM Scheduled Provider: Location:[facility] Appointment Type:Urology FT Diagnostic Tests Pending * Blood Culture Charcoal 11/11/23 * Blood Culture Charcoal 11/11/23 * Urine Culture 11/11/23 Future Scheduled Tests Radiology* XR Chest 2 Views 05/15/23 * XR Chest 2 Views 05/15/23 [facility]03-11-2024 Evaluation + Plan noteExtracted from: Title:ED NoteAuthor:Staci Beck DO ADate:10/30/23 Complication of Elliott cathet er (T83.9XXA: Unspecified complication of genitourinary prosthetic device, implant and graft, initial encounter) Future Appointments Appointment Date:11/01/2023 02:00:00 PM Scheduled Provider: Location:[facility] Appointment Type:URO Nurse Visit Appointment Date:11/16/2023 09:00:00 AM Scheduled Provider: Location:[facility] Appointment Type:Urology CALL PAT FT Appointment Date:11/20/2023 12:00:00 PM Scheduled Provider: Location:[facility] Appointment Type:Urology FT Appointment Date:11/20/2023 01:15:00 PM Scheduled Provider: Location:[facility] Appointment Type:Urology FT Future Scheduled Tests Radiology* XR Chest 2 Views 05/15/23 * XR Chest 2 Views 05/15/23 [facility]03-11-2024 Hospital Discharge instructions Patient Education 10/30/2023 [...] bag. Secure the leg bag according to water restoration technician's instructions. This may be above or below [...] on each side. Do this in a kwkvf-ou-mhcy direction. ?If you are male: ?Use one [...] Clean the drainage bag according to the water restoration technician's instructions or as told byyour health care [...] and water are not available, use hand change management administrator. Always make sure there are no twists, [...] provider. Document Revised: 04/07/2022 Document Reviewed: 04/07/2022 [employer] Patient Education 2022 [employer] Follow Up Care 10/30/2023 05:10:48 With:Taz THOMAS Address: [address] [phone] Business (1) When:11/02/2023 05:21:06 Comments:Follow-up with urology for further evaluation and management. Please return to the ED for any new or worsening symptoms. With:REID BROOKE Address: [address] [facility] [address] [phone] Business (1) When:Within 3 Day(s) [facility]03-09-2024 NoteHNO ID: [id number] Author: JOHN SPANN RN Service: ? Author Type: Registered Nurse Type: Progress Notes Filed: 10/28/2023 13:45 Note Text: Patient given discharge instructions and printed AVS summary. Medications reviewed in detail including next dose due, indication, and side effects. CHF management including symptoms to report reviewed. All questions answered. IV access discontinued, heart monitor off, and valuables packed by patient. DRIVER LICENSE AGENT medications with patient. Awaiting daughter to transport patient home.[facility] HospitalKksjzfjp92-17-7715 NoteHNO ID: [id number] Author: GÓMEZ OLIVA LSW Service: Care Management Author Type: Merchandise Worker Type: Care Mgt Progress Note Filed: 10/28/2023 12:15 Note Text: CARE MANAGEMENT DISCHARGE NOTE SERVICE DATE: October 28, 2023 SERVICE TIME: 12:14 PM Admission Date: 10/23/2023 LOS: 4 days Discharge Arrangement Discharge Arrangement: Home with Home Health Services Arranged Medical Services: Skilled Home Health Care Type: Custodial, Physical Therapy, Occupational Therapy Caregiver Assessment Caregiver is ready, willing and able to meet the patient's needs as recommended by the inter-professional team: Yes Name of Caregiver: [facility] Transportation Arrangements Transportation Arrangements: Car Handoff Communication: Additional Information: Discharge Information Row Name ED to Hosp-Admission (Current) from 10/23/[address] Home Health Care Agency [facility] Patient will be d/c home with HHC from [facility] with a SOC date in 24 to 48 hours. Patient will transported home via family auto. SIGNATURE: JACK Posada PATIENT NAME: Nicole Lora DATE: October 28, 2023 TIME: 12:14 PM CONTACT #: [phone] History of Past illness Narrative* ProblemNoted DateDiagnosed DateResolved DateAcute on chronic respiratory failure with olihkvwqr35/09/2024 Last Assessment & Plan: See fluid overload documented as of this encounter (statuses as of 10/31/2023) [facility]03-09-2024 History of Past illness Narrative* ProblemNoted Date Diagnosed DateResolved DateAcute on chronic respiratory failure with hypoxemia 10/28/2023 Last Assessment & Plan: See fluid overload documented as of this encounter (statuses as of 11/22/2023) [facility]03-09-2024 History of Past illness Narrative* ProblemNoted Date Diagnosed DateResolved DateAcute on chronic respiratory failure with hypoxemia 10/28/2023 Last Assessment & Plan: See fluid overload documented as of this encounter (statuses as of 11/29/2023) [facility]03-09-2024 NoteHNO ID: [id number] Author: NAUN COUCH MD Service: Nephrology Author [...] distal pulses were palpable. LEARNING AND DEVELOPMENT DIRECTOR: Conscious, Alert AND Orientedx3, fluent speech, intact [...] amputation admitted from home who presented to [facility] with complaints of worsening shortness of breath, bilateral lower extremity edema and ~ 10lb weight gain in the last few weeks. Patient reports multiple hospital admissions in 2023 at [facility] in [place] for fluid overload. He states he usually [...] daily - trending alkalosis Given diamox -HTN DRIVER LICENSE AGENT Hydralazine 75 mg q12 hours -> decreased to 10 mg TID Isordil on hold, Continue to trend Can be discharged from nephrology standpoint Re-educated patient on fluid restriction, daily weight Follow up in office in 2-3 weeks Plan of care discussed with: Provider, RN, Patient Naun Couch MD [facility] October 28, 2023 8:37 AM [phone] [id number] NoteHNO ID: [id number] Author: NOTE, INTERFACE, ? Service: ? Author Type: ? Type: Progress Notes Filed: 10/28/2023 03:39 Note Text: Epic Scheduled Downtime: 10/28/2023 1:00:00 AM to 10/28/2023 3:24:00 [facility]03-08-2024 NoteHNO ID: [id number] Author: GÓMEZ OLIVA LSW Service: Care Management Author Type: Merchandise Worker Type: Care Mgt Progress Note Filed: 10/27/2023 [...] active with [facility] for PT/OT/SN provided to agency. Plan for patient's daughter or niece to transport. Please contact this SW over the weekend for d/c planning as needed. SIGNATURE: JACK Posada PATIENT NAME: Nicole Lora DATE: October 27, 2023 TIME: 1:17 PM PAGER/CONTACT #: [phone] [id number] NoteHNO ID: [id number] Author: TAY STEWART MD Service: General Internal [...] 6.3 CA 9.1 MG (more content not included)...[facility] HospitalMxoqbnwi03-09-6196 NoteHNO ID: [id number] Author: JUSTINO MARTÍNEZ, RN Service: Nursing Author Type: Registered Nurse Type: Nursing Progress Note Filed: 10/27/2023 03:59 Note Text: Patient's daughter called. She would like the team to call her with updates. [facility] HospitalIpptzgou74-19-5398 NoteHNO ID: [id number] Author: DELLA MADDOX RN Service: Care Management Author Type: Registered Nurse Type: Care Mgt Progress Note Filed: 10/26/2023 18:23 Note Text: CARE MANAGEMENT PROGRESS NOTE SERVICE DATE: 10/26/2023 SERVICE TIME: 6:16 PM LOS: 2 days Post-Acute Discharge Planning Patient Goal(s): General wellness [place] Explained: [place] Given: Yes Level of Care [...] know which agency. CM [facility] [employer]-looks like pt is active with [facility] [phone] per [facility]-referral sent to confirm/resume. [...] 26, 2023 TIME: 6:15 PM PAGER/CONTACT #: [phone] [id number] NoteHNO ID: [id number] Author: VALERIE LINDSEY APRN.CNP Service: General Internal Medicine Author Type: Nurse Practitioner Type: Plan of Care Filed: 10/26/2023 15:36 Note Text: INTERNAL MEDICINE PLAN OF CARE SERVICE DATE: 10/26/2023 SERVICE TIME: 10 am ADMITTING PHYSICIAN: Tay Stewart MD Subjective CHIEF COMPLAINT: Fluid Overload NIGHT AND WEEKEND COVERAGE: [employer] COVERAGE: HOUSE PAGER [phone] INTERVAL HISTORY OF PRESENT ILLNESS: Pt seen and examined on [facility] no apparent distress oob in chair. On was moved from the MICU to [facility] yesterday evening . CONSULTANTS: Cardiology, nephrology , Pulmonary consulted today HOSPITAL COURSE: This is a 63 year old male with a PMHx of CKD 3b, chronic respiratory failure, morbid obesity, insulin dependent diabetes, left 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 The patient states he's [...] consulted . Patient transferred from ED to [facility] where he has RR 2/2 acute [...] Drains, and Airways Line Duration Peripheral 10/23/23 0839 [facility] Short Right Antecubital 20 Gauge 2 days Drain Duration Indwelling Urinary Catheter External Facility Coude 18 Fr -- days ASSESSMENT/PLAN: * Fluid overload- (present (more content not included)...[facility] 10-26-2023 NoteHNO ID: [id number] Author: TAY STEWART MD Service: General Internal [...] which included preparing to see the patient, edpq-iq-mxnb patient ca (more content not included)...[facility] 10-25-2023 NoteHNO ID: [id number] Author: NAUN COUCH MD Service: Nephrology Author [...] distal pulses were palpable. LEARNING AND DEVELOPMENT DIRECTOR: Conscious, Alert AND Orientedx3, fluent speech, intact [...] amputation admitted from home who presented to [facility] with complaints of worsening shortness of breath, bilateral lower extremity edema and ~ 10lb weight gain in the last few weeks. Patient reports multiple hospital admissions in 2023 at [facility] in [place] for fluid overload. He states he usually [...] mg TID More stable, feeling better -HTN DRIVER LICENSE AGENT Hydralazine 75 mg q12 hours -> decrease to 10 mg TID On Isordil 10 mg TID Continue to trend Plan of care discussed with: Provider, RN, Patient Naun Couch MD [facility] October 25, 2023 4:27 PM [phone] [id number] NoteHNO ID: [id number] Author: NERY MOTTA MD Service: Cardiovascular Medicine [...] Motta MD DATE of SERVICE: October 25, 2023[facility] HospitalLvwerscb02-24-7210 NoteHNO ID: [id number] Author: MAE KENNY MD Service: Critical Care [...] 1.3 mL in (more content not included)... [place] [id number] NoteHNO ID: [id number] Author: SRUTHI EGAN PA-C Service: General Internal Medicine Author Type: Physician Electroencephalographic Technician Type: Plan of Care Filed: 10/24/2023 23:16 [...] Addendum: 2312: Called ICU on-call doc at 2144 and paged at 2222. [place] back at 0 with recs to transfer to ICU for bipap initiation. Plan discussed with RN. Patient currently asleep in chair. 90% on 5L O2 NC. Transfer order placed. Sruthi Egan PA-C 10/24/2023 11:15 [facility]03-05-2024 NoteHNO ID: [id number] Author: ELKE ORO RT(R) Service: ? Author Type: Consumer Affairs Specialist Type: Progress Notes Filed: 10/24/2023 14:26 Note [...] PATIENT PRESENTS WITH AN IMPLANTABLE OR ATTACHED BLUNGER: No CREATININE: Creatinine Date Value Ref Range [...] 24, 2023 TIME: 2:25 PM PAGER/CONTACT #:Jayme [phone] Hospital Discharge instructions Patient Education 10/18/2023 09:14:11 [...] Follow these instructions at home: Medicines Take wwkw-var-wciclnj and prescription medicines only as told by [...] provider. Document Revised: 04/28/2021 Document Reviewed: 04/28/2021 [employer] Patient Education 2022 [employer]. Follow Up Care 09/19/2023 09:41:35 With:Taz THOMAS MD, URL Address: [address] [place] [address] [place], [place] [id number]- When: Unknown [facility] 02-25-2024 Evaluation + Plan noteExtracted from:Title: ED NoteAuthor:Juan MOFFETT Mone BrittneySueDate:10/15/23 Urinary catheter complicatio n (T83.9XXA: Unspecified complication of genitourinary prosthetic device, implant and graft, initial encounter) Future Appointments Appointment Date:10/18/2023 09:00:00 AM Scheduled Provider:Taz THOMAS MD Location:[facility] Appointment Type:URO New Patient Appointment Date:10/18/2023 09:15:00 AM Scheduled Provider:Sukh Harrington DPM [facility] Appointment Type:WC Follow Up Visit (FT) Appointment Date:11/01/2023 02:00:00 PM Scheduled Provider: Location:[facility] Appointment Type:URO Nurse Visit Appointment Date:11/16/2023 09:00:00 AM Scheduled Provider: Location:[facility] Appointment Type:Urology CALL PAT FT Appointment Date:11/20/2023 01:15:00 PM Scheduled Provider: Location:[facility] Appointment Type:Urology FT Future Scheduled Tests Radiology* XR Chest 2 Views 05/15/23 * XR Chest 2 Views 05/15/23 [facility]02-25-2024 Hospital Discharge instructions Patient Education 10/15/2023 06:54:02 Elliott Catheter Care, Male-[facility] (Custom) Elliott Catheter Care, Male A Elliott [...] cotton underwear to absorb moisture and keep skin toggler. 6. Keep the drainage bag below the [...] 10/15/2023 06:04:22 With:REID BROOKE Address: [address] [address]- Business (1) When:10/18/2023 06:53:53 Comments:Call the office [...] you develop any new or worsening symptoms. [facility]02-22-2024 Progress note Author Gigi Cooper [facility] October 12, 2023 12:38pmNote Date/TimeFebruary 2023 12:38pm[place] [address] Nephrology Progress Note Signed Patient: Nicole Lora MR#: [id number] [birth year] : 1960 Acct:[id number] Age/Sex: 63 / M Adm Date: 4 Loc: Room: [address] [place] [address] Type: ADM IN Attending Dr: Yesi Murphy [...] / 460 300 / 300 Output Total 03521 / 38376 3600 / 3600 4050 / 4050 900 [...] 40 Mg Tablet) 40 mg PO DAILY [facility] Stop: 10/09/24 08:59 Last Admin: 10/12/23 08:27 Dose: 40 mg Budesonide/Formoterol Fumarate (Budesonide/Formoterol 160-4.5 Mcg 60 Puff/6 Gm Hfa.Aer.Ad) 2 puff INHALATION Q12HR.10A.10P [facility] Stop: 10/08/24 21:59 Last Admin: 10/12/23 09:05 Dose: 2 puff Dextrose (Dextrose 50% In Water 25 Gm/50 Ml Syringe) 0 gm IV-PUSH PRN PRN PRN Reason: Hypoglycemia Stop: 10/06/24 02:05 Furosemide (Furosemide 40 Mg/4 Ml Vial) 40 mg IV-PUSH BID@0800,1600 [facility] Stop: 10/06/24 07:59 Last Admin: 10/11/23 08:01 Dose: 40 mg Gabapentin (Gabapentin 600 Mg Tablet) 600 mg PO BID [facility] Stop: 10/06/24 11:59 Last Admin: 10/12/23 08:27 Dose: 600 mg Glucose (Dextrose 40% Gel 15 Gm Tube) 0 gm PO PRN PRN PRN Reason: Hypoglycemia Stop: 10/06/24 02:05 Heparin Sodium (Porcine) (Heparin 5,000 Unit/Ml Vial) 5,000 unit SUBCUT Q8HR [facility] Stop: 10/06/24 05:59 Last Admin: 10/12/23 04:59 Dose: 5,000 unit Hydralazine HCl (Hydralazine 50 Mg Tablet) 50 mg PO BID [facility] Stop: 10/08/24 08:59 Last Admin: 10/12/23 08:27 Dose: 50 mg Insulin Aspart (Insulin Aspart 300 Units/3 Ml Insuln.Pen) 0 units SUBCUT TID.WM.HS [facility]; Protocol Stop: 10/06/24 07:59 Last Admin: 10/12/23 11:57 Dose: 4 units Insulin Glargine (Insulin Glargine 300 Units/3 Ml Insuln.Pen) 20 units SUBCUT BID [facility] Stop: 10/07/24 20:59 Last Admin: 10/12/23 08:28 [...] 40 Mg Tablet.Dr) 40 mg PO DAILY [facility] Stop: 10/09/24 08:59 Last Admin: 10/12/23 08:27 Dose: 40 mg Ropinirole HCl (Ropinirole 1 Mg Tablet) 1 mg PO QHS [facility] Stop: 10/08/24 21:59 Last Admin: 10/11/23 21:36 Dose: 1 mg Sodium Chloride (Sodium Chloride 0.9 % 10 Ml Syringe) 0 ml IV-PUSH PRN PRN PRN Reason: Flush Stop: 10/05/24 20:20 Last Admin: 10/08/23 16:49 Dose: 10 ml Sodium Chloride (Sodium Chloride 0.9 % 10 Ml Syringe) 0 ml IV-PUSH QSHIFT [facility] Stop: 10/06/24 05:59 Last Admin: 10/12/23 04:59 Dose: 10 ml Tamsulosin HCl (Tamsulosin 0.4 Mg Cap.Er.24h) 0.4 mg PO DAILY [facility] Stop: 10/09/24 08:59 Last Admin: 10/12/23 08:27 [...] signed by Gigi Cooper MD> 10/12/23 1238 [facility] Work Phone: 1(699) 243-153802-22-2024 Discharge summary Author Yesi Murphy [facility] October 12, 2023 1:36pmNote Date/TimeFebruary 2023 10:24[address] [place] [id number] Discharge Summary Signed Patient: Nicole Lora MR#: [id number] [birth year] : 1960 Acct:[id number] Age/Sex: 63 / M Adm Date: 4 Loc: Room: [address] [place] [address]: Yesi Murphy MD Copies to: [...] was continued througouthis stay with a cumulative -73329 ml during his stay. He did have [...] Plan Discharge Plan Patient Disposition: Home Health [facility] Activity: No Activity Restriction Diet: Diabetic and [...] signed by Yesi Murphy MD> 10/12/23 1336 [facility] Work Phone: 1(915) 126-258102-21-2024 Progress note Author Gigi Cooper [facility] October 11, 2023 12:27pmNote Date/TimeFebruary 2023 12:27pm[place] [address] Nephrology Progress Note Signed Patient: Nicole Lora MR#: [id number] [birth year] : 1960 Acct:[id number] Age/Sex: 63 / M Adm Date: 4 Loc: Room: [address] [place] [address] Type: ADM IN Attending Dr: Yesi Murphy [...] / 100 Output Total 3475 / 3475 91814 / 63353 3600 / 3600 1500 / 1500 Balance [...] 40 Mg Tablet) 40 mg PO DAILY [facility] Stop: 10/09/24 08:59 Last Admin: 10/11/23 08:02 Dose: 40 mg Budesonide/Formoterol Fumarate (Budesonide/Formoterol 160-4.5 Mcg 60 Puff/6 Gm Hfa.Aer.Ad) 2 puff INHALATION Q12HR.10A.10P [facility] Stop: 10/08/24 21:59 Last Admin: 10/11/23 07:58 Dose: 2 puff Dextrose (Dextrose 50% In Water 25 Gm/50 Ml Syringe) 0 gm IV-PUSH PRN PRN PRN Reason: Hypoglycemia Stop: 10/06/24 02:05 Furosemide (Furosemide 40 Mg/4 Ml Vial) 40 mg IV-PUSH BID@0800,1600 [facility] Stop: 10/06/24 07:59 Last Admin: 10/11/23 08:01 Dose: 40 mg Gabapentin (Gabapentin 600 Mg Tablet) 600 mg PO BID [facility] Stop: 10/06/24 11:59 Last Admin: 10/11/23 08:02 Dose: 600 mg Glucose (Dextrose 40% Gel 15 Gm Tube) 0 gm PO PRN PRN PRN Reason: Hypoglycemia Stop: 10/06/24 02:05 Heparin Sodium (Porcine) (Heparin 5,000 Unit/Ml Vial) 5,000 unit SUBCUT Q8HR [facility] Stop: 10/06/24 05:59 Last Admin: 10/11/23 05:42 Dose: 5,000 unit Hydralazine HCl (Hydralazine 50 Mg Tablet) 50 mg PO BID [facility] Stop: 10/08/24 08:59 Last Admin: 10/11/23 08:02 Dose: 50 mg Insulin Aspart (Insulin Aspart 300 Units/3 Ml Insuln.Pen) 0 units SUBCUT TID.WM.HS [facility]; Protocol Stop: 10/06/24 07:59 Last Admin: 10/11/23 [...] By: <Electronically signed by Gigi Cooper MD> 10/11/231 [facility] Work Phone: 1(682) 528-232102-21-2024 Progress note Author Yesi Murphy [facility] October 11, 2023 8:19amNote Date/TimeFebruary 2023 8:17[place] [address] Hospitalist Progress Note Signed Patient: Nicole Lora MR#: [id number] [birth year] : 1960 Acct:[id number] Age/Sex: 63 / M Adm Date: 4 Loc: 3T Room: [address] [place] [address] Type: ADM IN Attending Dr: Yesi Murphy [...] on chronic heart failure with preserved ejection kfjpbvom65% Patient is using 4 L nasal cannula [...] <Electronically signed by Yesi Murphy MD> 10/11/23818 [facility] Work Phone: 1(327) 492-884602-20-2024 Progress note Author Yesi Murphy [facility] October 10, 2023 1:19pmNote Date/TimeFebruary 2023 10:12[place] [address] Hospitalist Progress Note Signed Patient: Nicole Lora MR#: [id number] 29 : 1960 Acct:[id number] Age/Sex: 63 / M Adm Date: 4 Loc: Room: [address] [place] [address] Type: ADM IN Attending Dr: Yesi Murphy [...] on chronic heart failure with preserved ejection fwxfboom51% Patient is using 4 L nasal cannula [...] signed by Yesi Murphy MD> 10/10/23 1319 [facility] Work Phone: 1(145) 706-310702-20-2024 Progress note Author Gigi Cooper [facility] October 10, 2023 12:50pmNote Date/TimeFebruary 2023 12:51[place] [address] Nephrology Progress Note Signed Patient: Nicole Lora MR#: [id number] 29 : 1960 Acct:[id number] Age/Sex: 63 / M Adm Date: 4 Loc: Room: [address] [place] [address] Type: ADM IN Attending Dr: Yesi Murphy [...] Total 4250 / 4250 3475 / 3475 65331 / 93739 900 / 900 Balance -2620 / -2620 [...] 40 Mg Tablet) 40 mg PO DAILY [facility] Stop: 10/09/24 08:59 Last Admin: 10/10/23 08:35 Dose: 40 mg Budesonide/Formoterol Fumarate (Budesonide/Formoterol 160-4.5 Mcg 60 Puff/6 Gm Hfa.Aer.Ad) 2 puff INHALATION Q12HR.10A.10P [facility] Stop: 10/08/24 21:59 Last Admin: 10/10/23 10:19 Dose: 2 puff Dextrose (Dextrose 50% In Water 25 Gm/50 Ml Syringe) 0 gm IV-PUSH PRN PRN PRN Reason: Hypoglycemia Stop: 10/06/24 02:05 Furosemide (Furosemide 40 Mg/4 Ml Vial) 40 mg IV-PUSH BID@0800,1600 [facility] Stop: 10/06/24 07:59 Last Admin: 10/10/23 08:35 Dose: 40 mg Gabapentin (Gabapentin 600 Mg Tablet) 600 mg PO BID [facility] Stop: 10/06/24 11:59 Last Admin: 10/10/23 08:35 Dose: 600 mg Glucose (Dextrose 40% Gel 15 Gm Tube) 0 gm PO PRN PRN PRN Reason: Hypoglycemia Stop: 10/06/24 02:05 Heparin Sodium (Porcine) (Heparin 5,000 Unit/Ml Vial) 5,000 unit SUBCUT Q8HR [facility] Stop: 10/06/24 05:59 Last Admin: 10/10/23 05:49 Dose: 5,000 unit Hydralazine HCl (Hydralazine 50 Mg Tablet) 50 mg PO BID [facility] Stop: 10/08/24 08:59 Last Admin: 10/10/23 08:36 Dose: 50 mg Insulin Aspart (Insulin Aspart 300 Units/3 Ml Insuln.Pen) 0 units SUBCUT TID.WM.HS [facility]; Protocol Stop: 10/06/24 07:59 Last Admin: 10/10/23 11:50 Dose: 3 units Insulin Glargine (Insulin Glargine 300 Units/3 Ml Insuln.Pen) 20 units SUBCUT BID [facility] Stop: 10/07/24 20:59 Last Admin: 10/10/23 08:37 [...] 0.4 Mg Cap.Er.24h) 0.4 mg PO DAILY [facility] Stop: 10/09/24 08:59 Last Admin: 10/10/23 08:35 Dose: 0.4 mg Allergies Penicillins Allergy (Verified 10/06/23 20:32) Rash Results Labs 10/06/23 20:35 10/10/23 06:28 Labs: 10/10/23 10/10/23 06:28 09:35 BUN 45 H Creatinine 1.52 H Urine Color Yellow Urine Appearance Clear Urine pH 5.0 Ur Specific [place] 1.008 Urine Protein 30 H Urine Glucose [...] concern Documented By: Gigi Cooper MD 10/10/23 1242 Signed By: <Electronically signed by Gigi Cooper MD> 10/10/23 1197 [facility] Work Phone: 1(699) 628-763602-19-2024 Progress note Author Hood Zacarias [facility] October 09, 2023 5:43pmNote Date/TimeFebruary 2023 2:[place] [id number] Event Note Signed Patient: Nicole Lora MR#: [id number] [birth year] : 1960 Acct:[id number] Age/Sex: 63 / M Adm Date: 4 Loc: 3T Room: [address] [place] [address] Type: ADM IN Attending Dr: Yesi Murphy [...] signed by MD Hood Zacarias> 10/09/23 1743 [facility] Work Phone: 1(650) 830-940102-19-2024 Progress note Author Yesi Murphy [facility] October 09, 2023 2:16pmNote Date/TimeFebruary 2023 1:59pm[place] [id number] Hospitalist Progress Note Signed Patient: Nicole Lora MR#: [id number] [birth year] : 1960 Acct:[id number] Age/Sex: 63 / M Adm Date: 4 Loc: 3T Room: [address] [place] [address] Type: ADM IN Attending Dr: Yesi Murphy [...] code Documented By: Yesi Murphy MD 10/09/23 1354 Signed By: <Electronically signed by Yesi Murphy MD> 10/09/23 1416 [facility] Work Phone: 1(987) 635-224702-19-2024 Consult note Author Gigi Cooper [facility] October 09, 2023 11:35amNote Date/TimeFebruary 2023 11:35[place] [id number] Nephrology Consult Note Signed Patient: Nicole Lora MR#: [id number] [birth year] : 1960 Acct:[id number] Age/Sex: 63 / M Adm Date: 4 Loc: Room: [address] [place] [address] Type: ADM IN Attending Dr: Yesi Murphy [...] of breath and body anasarca [facility] Medical History (Updated 10/09/23 @ 11:30 by [...] Mg/4 Ml Vial) 40 mg IV-PUSH BID@0800,1600 [facility] Stop: 10/06/24 07:59 Last Admin: 10/09/23 07:49 Dose: 40 mg Gabapentin (Gabapentin 600 Mg Tablet) 600 mg PO BID [facility] Stop: 10/06/24 11:59 Last Admin: 10/09/23 07:50 Dose: 600 mg Glucose (Dextrose 40% Gel 15 Gm Tube) 0 gm PO PRN PRN PRN Reason: Hypoglycemia Stop: 10/06/24 02:05 Heparin Sodium (Porcine) (Heparin 5,000 Unit/Ml Vial) 5,000 unit SUBCUT Q8HR [facility] Stop: 10/06/24 05:59 Last Admin: 10/09/23 06:30 Dose: 5,000 unit Hydralazine HCl (Hydralazine 50 Mg Tablet) 50 mg PO BID [facility] Stop: 10/08/24 08:59 Last Admin: 10/09/23 08:04 Dose: 50 mg Insulin Aspart (Insulin Aspart 300 Units/3 Ml Insuln.Pen) 0 units SUBCUT TID.WM.HS [facility]; Protocol Stop: 10/06/24 07:59 Last Admin: 10/09/23 07:58 Dose: Not Given Insulin Glargine (Insulin Glargine 300 Units/3 Ml Insuln.Pen) 20 units SUBCUT BID [facility] Stop: 10/07/24 20:59 Last Admin: 10/09/23 07:57 [...] Cheema Jr., D.OSue10/08/2023 2:58 PM Dictation Location: [place] [address] Any impression(s) listed above is documentation that [...] signed by Gigi Cooper MD> 10/09/23 1135 [facility] Work Phone: 1(206) 530-126502-18-2024 Progress note Author Ramses Masters [facility] October 08, 2023 4:03pmNote Date/TimeFebruary 2023 12:52pm[place] [address] Hospitalist Progress Note Signed with Jazzy Patient: Nicole Lora MR#: [id number] [birth year] : 1960 Acct:[id number] Age/Sex: 63 / M Adm Date: 4 Loc: 3T Room: [address] [place] [address] Type: ADM IN Attending Dr: Ramses Masters [...] the daughterand he is usually seen at [facility]. He was recently admitted in August for pneumonia, volume overload and sepsis and now he is back again. The daughter requested the patient to be transferred to [facility]. I explained to thedaughter that at this time the patient is improving and would not have much to be offered more at [facility] but the daughter insistent to have himtransferred and that she would feel more comfortable about that. I contacted the [facility] transfer center and spoke with Dr. [...] III?current creatinine seems to be around baseline. ?video coordinator is stable 1.7 with diuresis. -Consult [...] signed by Ramses Masters MD> 10/08/23 1252 [facility] Work Phone: 1(467) 141-344602-17-2024 Progress note Author Ramses Masters [facility] October 07, 2023 1:28pmNote Date/TimeFebruary 2023 1:28pmDanielle [place] [id number] Hospitalist Progress Note Signed Patient: Nicole Lora MR#: [id number] [birth year] : 1960 Acct:[id number] Age/Sex: 63 / M Adm Date: 4 Loc: 3T Room: [address] [place] [address] Type: ADM IN Attending Dr: Ramses Masters [...] Ramses Masters MD> 10/07/23 1328 [facility] Work Phone: 1(887) 851-426502-17-2024 History and physical note Author Tera Nevarez [facility] October 07, 2023 4:13amNote Date/TimeFebruary 2023 2:10am[place] [address] Hospitalist H&P Signed Patient: Nicole Lora MR#: [id number] [birth year] : 1960 Acct:[id number] Age/Sex: 63 / M Adm Date: 4 Loc: Room: [address] [place] [address] Type: ADM IN Attending Dr: Tera Nevarez [...] [facility]. Review of Systems Review of Systems Review of systems: A 10 point review of systems was obtained, negative unless noted in the HPI or below. [facility] Medical History (Updated 10/07/23 @ 02:34 by [...] % (Auto) 11.2 % (.) 10/06/23 20:35 [place] % (Auto) 10.0 % (.) 10/06/23 20:35 Eos % (Auto) 3.0 % (.) 10/06/23 20:35 Baso % (Auto) 1.0 % (.) 10/06/23 20:35 Nucleat RBC Rel Count 0.1 /100 WBC (0-0.5) 10/06/23 20:35 Neut # (Auto) 5.2 x10E3/uL (1.8-7.7) 10/06/23 20:35 Lymph # (Auto) 0.8 x10E3/uL (1.00-4.8) L 10/06/23 20:35 [place] # (Auto) 0.7 x10E3/uL (0.0-0.8) 10/06/23 20:35 [...] pH 5.0 (5.0-9.0) 10/06/23 21: Ur Specific [place] 1.013 (1.001-1.030) 10/06/23 21:26 Urine Protein 100 [...] signed by Tera Nevarez DO> 10/07/23 0413 [facility] Work Phone: 1(441) 338-475702-04-2024 Hospital Discharge instructions Patient Education 09/24/2023 21:50:57 [...] Treatment for this condition includes: Antibiotic medicine. Hlly-iwu-iqkauxn medicines to treat discomfort. Drinking enough water [...] Follow these instructions at home: Medicines Take mlvq-ihu-sxpmzzl and prescription medicines only as told by [...] provider. Document Revised: 03/19/2021 Document Reviewed: 03/19/2021 [employer] Patient Education 2022 [employer]. Follow Up Care 09/24/2023 20:06:30 With:Taz THOMAS Address: [address] [place] [address]- Business (1) When:09/26/2023 21:38:10 With:REID BROOKE Address: [address] [facility] [address] [place] [address]- Business (1) When:Within 3 Day(s) [facility]02-04-2024 Evaluation + Plan noteExtracted from: Title:ED NoteAuthor:Jose Miguel Phan DODate:09/24/23 Acute UTI (N39.0: Urinary tr act infection, site not specified) Orders: cephalexin, 500 mg = 1 cap(s), Oral, q6hr, X 5 day(s), # 20 cap(s), Refills(s) 0, [facility]acy: [id number], 180, cm, 09/24/23 20:13:00 EST, Height/Length Dosing, [...] AM Scheduled Provider:BRYAN Bahena APRN, Gisselle Glasgow Location:[facility] Appointment Type:URO New Patient Appointment Date:09/28/2023 01:00:00 PM Scheduled Provider: [facility] Appointment Type: HBO () Appointment Date:10/18/2023 09:00:00 AM Scheduled Provider:Taz THOMAS MD Location:[facility] Appointment Type:URO New Patient Diagnostic Tests Pending * Urine Culture 09/24/23 Future Scheduled Tests Radiology* XR Chest 2 Views 05/15/23 * XR Chest 2 Views 05/15/23 [facility]01-28-2024 Hospital Discharge instructions Patient Education 09/17/2023 [...] bag. Secure the leg bag according to water restoration technician's instructions. This may be above or below [...] on each side. Do this in a ymrnx-ge-ruip direction. ?If you are male: ?Use one [...] Clean the drainage bag according to the water restoration technician's instructions or as told byyour health care [...] and water are not available, use hand change management administrator. Always make sure there are no twists, [...] provider. Document Revised: 04/07/2022 Document Reviewed: 04/07/2022 [employer] Patient Education 2022 [employer]. Follow Up Care 09/17/2023 14:05:58 With:REID BROOKE Address: [address] [place] [address] Business (1) When:09/20/2023 15:07:35 Comments:Apply small amount [...] with urologist as instructed by the hospitalist. [facility]01-28-2024 Evaluation + Plan noteExtracted from: Title:ED NoteAuthor:Alejandro [...] 05/15/23 * XR Chest 2 Views 05/15/23 [facility]01-27-2024 [facility]:Result Comment: Electronically Signed By: Kayla Garcia MD\.br\Date and Time Signed: 09/16/23 10:23 [id number] [facility] Comment on above:Result Comment: Electronically Signed By: Kayla Garcia MD\.br\Date and Time Signed: 09/12/23 17:49 [id number] Hospital Discharge instructions Patient Education 08/06/2023 14:18:47 RICE Therapy for Routine Care of Injuries, Bvsl-da-Mhhs RICE Therapy for Routine Care of Injuries [...] provider. Document Revised: 05/27/2021 Document Reviewed: 05/27/2021 [employer] Patient Education 2022 [employer] 08/06/2023 14:18:47 Hip Pain Hip Pain [...] activities that cause pain. General instructions Take sqyd-auv-fgeembh and prescription medicines only as told by [...] provider. Document Revised: 12/23/2019 Document Reviewed: 12/23/2019 [employer] Patient Education 2022 [employer]. Follow Up Care 08/06/2023 13:03:18 With:REID BROOKE Address: [facility] [address] [address]- Business (1) When:08/09/2023 14:06:25 Comments:Follow-up with your primary care provider in 3 to 5 days. If symptoms worsen, do not improve, or new symptoms arise please report back to emergency department for further evaluation. [facility]12-17-2023 Evaluation + Plan noteExtracted from: Title:ED NoteAuthor:Greyson ENGLE, Paddy JoséDate:08/06/23 Right hip pain (M25.551: Barb n in right hip) Orders: XR Hip 2-3 Views Right + Pelvis Future Appointments Appointment Date:08/16/2023 09:30:00 AM Scheduled Provider:Sukh Harrington DPM [facility] Appointment Type:WC Follow Up Visit (FT) Appointment Date:08/24/2023 10:00:00 AM Scheduled Provider:Migue STROUD MD Location:[facility] Appointment Type: Open Future Scheduled Tests Radiology* XR Chest 2 Views 05/15/23 * XR Chest 2 Views 05/15/23 [facility]11-01-2023 Progress note Author Amrik De Guzman [facility] June 21, 2023 12:21pmNote Date/TimeJune 21, 2023 12:21pm[address] [address] Pulmonology Progress Note Signed Patient: Nicole Lora MR#: [id number] [birth year] : 1960 Acct:[id number] Age/Sex: 63 / M Adm Date: 3 Loc: Room: [address] [place] [address] Type: ADM IN Attending Dr: Alban Arrington [...] he is following up with pulmonology in [place], and supposed to call for sleep study and arrangement of positive pressure ventilation at home. Otherwise he is being discharged today, no further recommendations from my standpoint Documented By: Amrik De Guzman MD 06/21/23 1212 Signed By: <Electronically signed by Amrik De Guzman MD> 06/21/23 1221 [facility] Work Phone: 1(402) 308-954311-01-2023 Discharge summary Author Alban Arrington [facility] June 21, 2023 1:58pmNote Date/TimeNov2022 12:17pm[address] [address] Discharge Summary Signed Patient: Nicole Lora MR#: [id number] [birth year] : 1960 Acct:[id number] Age/Sex: 63 / M Adm Date: 3 Loc: Room: [address] [place] [address]: Alban Arrington DO Copies to: [...] newly initiated on 4 L nasal cannula glfopo-mgx-xrzag for ongoing hypoxia. Prior to this he [...] Sodium 143, Potassium 4.4, Chloride 100, Carbon Hsmbzot31.1 H, Anion Gap 6.3, BUN 38 H, Creatinine 1.60 H, Est GFR (CKD-EPI) 47.816, Glucose 60 L D, Calcium 8.7, Magnesium 1.8 L 06/21/23 06:54: Corrected WBC 9.5, Uncorrected WBC Count 9.5, RBC 5.24, Hgb 14.9, Hct 46.3, MCV 88.3, MCH 28.4, MCHC 32.2 L, RDW 16.0 H, Plt Count 241, MPV 7.1, Neut % (Auto) 57.7, Lymph % (Auto) 26.3, [place] % (Auto) 9.9, Eos % (Auto) 5.4, Baso % (Auto) 0.7, Nucleat RBC Rel Count 0.1, Neut # (Auto) 5.5, Lymph # (Auto) 2.5, [place] # (Auto) 0.9 H, Eos # (Auto) [...] kerlix Please keep previously scheduled appointment with wet finisher wool in [place]. Prescriptions: New lisinopril-hydrochlorothiazide 20-25 mg tablet 1 [...] <Electronically signed by Alban Arrington DO> 06/21/23 1415 [facility] Work Phone: 1(977) 581-213510-31-2023 Consult note Author Amrik De Guzman [facility] June 20, 2023 2:43pmNote Date/TimeOct2022 2:43pm[place] [address] Pulmonology Consult Note Signed Patient: Nicole Lora MR#: [id number] 29 : 1960 Acct:[id number] Age/Sex: 63 / M Adm Date: 3 Loc: Room: [address] [place] [address] Type: ADM IN Attending Dr: Alban Arrington [...] coughing spells for which she went to [facility] emergency room, wastold that he had pneumonia [...] o xygen, he was discharged home from [facility] on 4 L of oxygen. White count was normal his BUN and creatinine were elevated and was diagnosed with chronic kidney disease even previously at [facility]. I do not have any of his previous x-rays, CT, to review, chest x-ray here showed mild left lower lobe infiltrate possibly fibrotic or atelectatic with some volume loss in the left lung, again nobaseline film to compare Review of Systems Review of Systems Review of systems: As mentioned above [facility] Medical History (Updated 06/20/23 @ 14:40 by [...] failure or cor pulmonale. Reportedly echo at [facility] did not report pulmonary hypertension but clinical [...] cm of water while he was at [employer] per his history, will try this again tonight * Patient reported to me seeing pulmonology in [place] who are arranging for sleep study and treatment of obstructive sleep apnea * Will need continued diuretic therapy on discharge in addition to continuous oxygen therapy * Maintain inhaled therapy as started by pulmonology in [place], patient will follow-up with them upon discharge Documented By: Amrik De Guzman MD 06/20/23 1434 Signed By: <Electronically signed by Amrik De Guzman MD> 06/20/23 1443 [facility] Work Phone: 1(619) 972-792110-31-2023 Progress note Author Alban Arrington [facility] June 20, 2023 1:37pmNote Date/TimeOct2022 9:48[place] [address] Hospitalist Progress Note Signed Patient: Nicole Lora MR#: [id number] 29 : 1960 Acct:[id number] Age/Sex: 63 / M Adm Date: 3 Loc: Room: [address] [place] [address] Type: ADM IN Attending Dr: Alban Arrington [...] chronic hypoxic respiratory failure -Recently discharged from [facility] for pneumonia on 4 L oxygen, no [...] congestive heart failure, unspecified type -Echo at [facility] showed EF of 60 to 65% -Await [...] signed by Alban Arrington DO> 06/20/23 1337 [facility] Work Phone: 1(480) 178-338210-30-2023 Progress note Author Alban Arrington [facility] June 19, 2023 10:05amNote Date/TimeOctober 2022 10:05[place] [id number] Event Note Signed Patient: Nicole Lora MR#: [id number] 29 : 1960 Acct:[id number] Age/Sex: 63 / M Adm Date: 3 Loc: Room: [address] [place] [address] Type: ADM IN Attending Dr: Alban Arrington [...] signed by Alban Arrington DO> 06/19/23 1005 [facility] Work Phone: 1(700) 609-802510-30-2023 History and physical note Author Alban Arrington [facility] June 19, 2023 5:20amNote Date/TimeOctober 2022 3:28[place] [id number] Hospitalist H&P Signed Patient: Nicole Lora MR#: [id number] [birth year] : 1960 Acct:[id number] Age/Sex: 63 / M Adm Date: 3 Loc: 3T Room: [address] [place] [address] Type: ADM IN Attending Dr: Alban Arrington DO Copies to: Alban Arrington DO Reid Brooke DO~ HPI DATE OF EXAMINATION: 06/19/23 CHIEF COMPLAINT: Swelling HISTORY OF PRESENT ILLNESS: This patient is a 63-year-old male recently hospitalized at [facility] and discharged . He was reportedly treated for pneumonia at that time. He was discharged on prednisone and doxycycline. He appears to have been discharged on 4 L of nasal cannula that he is to wear iinksy-zlx-vyaro. His primary complaint today is worsening edema [...] x1.The patient [facility] for treatment of acute on [...] continued. He only recently was discharged on uylww-zpu-lsdzh 4 L O2. He may have been [...] noted below or in HPI [facility] Medical History Amputation of one or more [...] % (Auto) 20.2 % (.) 06/18/23 22:08 [place] % (Auto) 9.2 % (.) 06/18/23 22:08 Eos % (Auto) 3.1 % (.) 06/18/23 22:08 Baso % (Auto) 0.7 % (.) 06/18/23 22:08 Nucleat RBC Rel Count 0.1 /100 WBC (0-0.5) 06/18/23 22:08 Neut # (Auto) 4.5 x10E3/uL (1.8-7.7) 06/18/23 22:08 Lymph # (Auto) 1.4 x10E3/uL (1.00-4.8) 06/18/23 22:08 [place] # (Auto) 0.6 x10E3/uL (0.0-0.8) 06/18/23 22:08 [...] pH 5.5 (5.0-9.0) 06/18/23 23:26 Ur Specific [place] 1.020 (1.001-1.030) 06/18/23 23:26 Urine Protein 100 [...] signed by Alban Arrington DO> 06/19/23 05 [facility] Work Phone: 1([phone]) 138-949210-26-2023 Evaluation + Plan noteExtracted from:Title: Discharge NoteAuthor:Mingo [...] 11 refills, Not taking Freestyle Sage 2 Opheim, See Instructions Freestyle Sage 2 Sensors, See Instructions, 3 refills gabapentin 600 mg Tab, 600 mg= 1 tab(s), Oral, TID, 11 refills Glucometer, See Instructions Glucometer test strips, See Instructions, 11 refills guaiFENesin 600 mg ER Tab, 1200 mg= 2 tab(s), Oral, BID Insulin Pen Dexter 31g x 8 mm, See Instructions, 4 [...] tab(s), Oral, Daily With When Contact Information [facility] 06/21/2023 09:30 AM EDT Additional Instructions: Ida LYMAN, Pippa Mabry, PUL, KATY Within 2 to 4 weeks [address] [facility] [place] [address]- Additional Instructions: Call for followup appointment Mounika Brooke [address] [place] [address]- Business (1) Additional Instructions: Please call the office to make a follow up appiontment. [facility] Thank you. Hypoxia Community-Acquired Pneumonia, Adult, Bdxx-jm-Kvjr Extracted from:Title:APSO NoteAuthor:Saul CLEMENT-Dipak BECKER.Date:06/15/23 Acute respiratory [...] EDT, 239:22:00 EDT Addendum by Ida LYMAN, [place] [facility] 15:59:41 EDT I have seen and evaluated the patient with the physician environmental assistant. His history, physical exam, assessment and [...] to baseline. - No urgent need for ROAD MENDER - Hold losartan and metformin for AMY [...] O2 We will await pulmonology recommendations Ordered: [facility] Care/Day Moderate 35 Minutes 21287 2. Elevated brain natriuretic peptide (BNP) level (R79.89: Other specified abnormal findings of blood chemistry) despite echo negative for acute findings, cxr was concerning for fluid congestion 3. TC (obstructive sleep apnea) (G47.33: Obstructive sleep apnea (adult) (pediatric)) BiPap qHS and PRN 4. Hyperkalemia (E87.5: Hyperkalemia) 2/2 elevated glucose as well as elevated Cr, improved Status post [facility] Nephrology consulted and following trend control [...] at 50ml/hour. - No urgent need for ROAD MENDER - Hold losartan and metformin for AMY [...] kg over admission weight as well Ordered: [facility] Care/Day High 50 Minutes [id number] 2. Elevated brain natriuretic peptide (BNP) level [...] will be able to use portableOxygen. Extracted from:Title:[facility] Consult NoteAuthor:Shaquille Alex Jr., PA-CDate: 06/12/23 [...] on Test Procalcitonin Addendum by Ida LYMAN, [facility] 12, [facility]23 17:23:20 EDT I have seen and evaluated the patient with the physician environmental assistant. His history, physical exam, assessment and [...] strict I's and O's, daily weights Ordered: [facility] Care/Day High 50 Minutes [id number] 2. Elevated brain natriuretic peptide (BNP) level [...] BID, # 20 cap(s), Refills(s) 0, Pharmacy: [facility] #[id number], 182, cm, 06/11/23 13:54:00 EDT, Height/Length Dosing, [...] day(s), # 7 tab(s), Refills(s) 0, Pharmacy: [facility]#[id number], 182, cm, 06/11/23 13:54:00 EDT, Height/Length Dosing, 139.6, kg, 06/11/23 13:54:00 EDT, Weight Dosing Automated Diff B-Type Natriuretic Peptide Basic Metabolic Panel Blood Culture Charcoal Blood Culture Charcoal Blood Gas Art, with Lytes, Gluc, Lact CBC w/ Auto Diff Continuous Pulse Oximetry CTA Chest ED Cardiac Monitoring eGFR Lactic Acid Oxygen Therapy PT & PTT Rapid COVID Antigen ([facility]) Saline Lock Insert Troponin 0 Hr. Troponin 3 Hr. Troponin 6 Hr. Troponin 9 Hr. Future Appointments Appointment Date:06/21/2023 09:30:00 AM Scheduled Provider:Sukh Harrington DPM [facility] Appointment Type:WC Follow Up Visit (FT) Appointment Date:08/24/2023 10:00:00 AM Scheduled Provider:Migue STROUD MD Location:[facility] Appointment Type: Open Future Scheduled Tests Radiology* XR Chest 2 Views 05/15/23 * XR Chest 2 Views 05/15/23 [facility]10-22-2023 Hospital Discharge instructions Patient Education 06/11/2023 [...] hypoxia. Follow these instructions at home: Take zbvy-cki-tqlwaca and prescription medicines only as told by [...] provider. Document Revised: 03/08/2022 Document Reviewed: 03/08/2022 [employer] Patient Education 2022 [employer]. 06/11/2023 20:24:39 Community-Acquired Pneumonia, Adult, Qdbe-gd-Zfht Community-Acquired Pneumonia, Adult Pneumonia is an infection [...] Follow these instructions at home: Medicines Take fwyq-tyj-cnzpurl and prescription medicines only as told by [...] cannot use soap and water, use hand change management administrator. Contact a doctor if: You have a [...] provider. Document Revised: 05/19/2020 Document Reviewed: 05/19/2020 [employer] Patient Education 2022 [employer]. Follow Up Care 06/11/2023 13:47:13 With:Ida LYMAN, AIMEE Castro, KATY Address: [address] [place] [address] [facility] ([facility]) [place] [address]- When:2 to 4 weeks Comments:Call for followup appointment With:[facility] Address:Unknown When:06/21/2023 09:30:00 With:Mounika Brooke Address: [address] [place] [address] [facility] (1) When: Unknown Comments:Please call the office to make a follow up appiontment. You are new to the office. Thank you. [facility]08-14-2023 Hospital Discharge instructions Follow Up Care 04/03/2023 10:10:15 With:MARLI LYMAN, ЮЛИЯ [place] Address: When:Within 3 Month(s) [facility] 12-15-2022 Hospital Discharge instructions Patient Education 08/04/2022 [...] or polycystic ovarian syndrome (PCOS). Being of [place], -[place], /, or / descent. What are the [...] these instructions at home: General instructions Take umig-hev-sfxmyha and prescription medicines only as told by [...] 01/31/2002 Document Revised: 04/24/2017 Document Reviewed: 04/24/2017 [employer] Patient Education 2020 [employer]. Follow Up Care 08/04/2022 13:03:59 With:Migue STROUD Address: [address] [place], [place] [id number]- [facility] (1) When:08/07/2022 16:52:09 Comments:Call the [...] at any time to continue your care. [facility]12-15-2022 Evaluation + Plan noteExtracted from: Title:ED NoteAuthor:Mone [...] Date:09/13/2022 01:00:00 PM Scheduled Provider:Migue STROUD MD Location:[facility] Appointment Type:[facility]08[facility]2022 Hospital Discharge instructions Follow Up Care 03/29/2022 14:12:55 With:Migue STROUD MD, FAM Address: When:Within 1 Month(s) [facility] 07-20-2022 Hospital Discharge instructions Patient Education 03/09/2022 [...] or polycystic ovarian syndrome (PCOS). Being of [place], -[place] Korean, /, or / descent. What are the [...] these instructions at home: General instructions Take nmkt-bmb-muddlfb and prescription medicines only as told by [...] 01/31/2002 Document Revised: 04/24/2017 Document Reviewed: 04/24/2017 [employer] Patient Education 2020 [employer]. 03/09/2022 01:22:46 COVID-19 COVID-19 COVID-19 is a [...] to fight infection (immunocompromised). Live in a fpc or long-term care facility. Have a long-term [...] managed at home with rest, fluids, and uoat-hot-ppaxtuj medicines. Treatment for a serious infection usually [...] are safe for you. General instructions Take zbeb-rfy-axlqtlv and prescription medicines only as told by [...] water are not available, usean alcohol-based hand change management administrator. ?Avoid touching your mouth, face, eyes, or [...] water are not available, use alcohol-based hand change management administrator. Stay away from other members of your [...] have a weak immunity, live in a fpc, or have chronic disease. There is no [...] 09/12/2019 Document Revised: 01/02/2020 Document Reviewed: 09/12/2019 [employer] Patient Education 2020 [employer]. Follow Up Care 03/08/2022 22:47:15 With:Miguecora STROUD Address: [address] [place], [place] [id number] Business (1) When:03/16/2022 [facility]07-19-2022 Evaluation + Plan noteExtracted from: Title:ED NoteAuthor:Jose [...] Panel Influenza A&B Ag Rapid COVID Antigen ([facility]) Routine Capillary Glucose POC UA With Cult Reflex XR Chest Single View Future Appointments Appointment Date:03/29/2022 01:00:00 PM Scheduled Provider:Migue STROUD MD Location:[facility] Appointment Type:[facility]07-06-2022 Hospital Discharge instructions Follow Up Care 02/23/2022 13:55:05 With:Migue STROUD MD, FAM Address: When:Within 3 Month(s) [facility] 05-10-2022 Hospital Discharge instructions Follow Up Care 12/28/2021 14:20:03 With:Migue STROUD MD, FAM Address: When:Within 2 Month(s) [facility] Evaluation + Plan note Future Appointments Appointment Date:01/11/2022 01:40:00 PM Scheduled Provider:Migue STROUD MD Location:[facility] Appointment Type:[facility] Evaluation + Plan note Future Appointments Appointment Date:03/08/2022 01:20:00 PM Scheduled Provider:Migue STROUD MD Location:[facility] Appointment Type:[facility] evaluation + Plan note Future Appointments Appointment Date:04/08/2022 09:00:00 AM Scheduled Provider: Location:[facility] Appointment Type: Medicare Wellness Subsequent Appointment Date:06/27/2022 02:20:00 PM Scheduled Provider:Migue STROUD MD Location:[facility] Appointment Type:[facility] evaluation + Plan note Future Appointments Appointment Date:06/27/2022 02:20:00 PM Scheduled Provider:Migue STROUD MD Location:[facility] Appointment Type:[facility] evaluation + Plan note Future Appointments Appointment Date:10/11/2022 02:20:00 PM Scheduled Provider:Migue STROUD MD Location:[facility] Appointment Type:[facility] evaluation + Plan note Future Appointments Appointment Date:11/03/2022 10:00:00 AM Scheduled Provider:Migue STROUD MD Location:[facility] Appointment Type:[facility] evaluation + Plan note Future Appointments Appointment Date:03/07/2023 10:40:00 AM Scheduled Provider:Migue STROUD MD Location:[facility] Appointment Type:[facility] Evaluation + Plan note Future Appointments Appointment Date:04/27/2023 09:40:00 AM Scheduled Provider:Migue STROUD MD Location:[facility] Appointment Type:[facility] evaluation + Plan note Future Appointments Appointment Date:04/25/2023 03:30:00 PM Scheduled Provider:Smooth Harrington DPM [facility] Appointment Type:WC Follow Up Visit (FT) Appointment Date:04/26/2023 09:30:00 AM Scheduled Provider:Sukh Harrington DPM [facility] Appointment Type:WC Follow Up Visit (FT) Appointment Date:04/27/2023 09:40:00 AM Scheduled Provider:Migue STROUD MD Location:[facility] Future Appointments Appointment Date:04/26/2023 09:30:00 AM Scheduled Provider:Sukh Harrington DPM [facility] Appointment Type:WC Follow Up Visit (FT) Appointment Date:05/22/2023 01:20:00 PM Scheduled Provider:Migue STROUD MD Location:[facility] Future Appointments Appointment Date:05/01/2023 11:15:00 AM Scheduled Provider: [facility] Appointment Type:WC Assessment (FT) Appointment Date:05/02/2023 04:00:00 PM Scheduled Provider:Smooth Harrington DPM [facility] Appointment Type:WC Follow Up Visit (FT) Appointment Date:05/22/2023 01:20:00 PM Scheduled Provider:Migue STROUD MD Location:[facility] Future Appointments Appointment Date:05/02/2023 04:00:00 PM Scheduled Provider:Smooth Harrington DPM [facility] Appointment Type:WC Follow Up Visit (FT) Appointment Date:05/22/2023 01:20:00 PM Scheduled Provider:Migue STROUD MD Location:[facility] Future Appointments Appointment Date:05/22/2023 01:20:00 PM Scheduled Provider:Migue STROUD MD Location:[facility] Future Appointments Appointment Date:05/16/2023 08:30:00 AM Scheduled Provider: [facility] App[facility] Type:PUL Pulmonary Function Test (FT) Appointment Date:05/22/2023 01:20:00 PM Scheduled Provider:Migue STROUD MD Location:[facility] Appointment Type:FM Open Appointment Date:06/05/2023 10:30:00 AM Scheduled Provider:Mary Mendez MD Location:[facility] Appointment Type:Pulmonary Follow Up (FT) Future Scheduled Tests Radiology* XR Chest 2 Views 05/15/23 * XR Chest 2 Views 05/15/23 [facility]ments Appointment Date:06/05/2023 10:30:00 AM Scheduled Provider:Mary Mendez MD Location:[facility] Appointment Type:Pulmonary Follow Up (FT) Appointment Date:06/07/2023 10:15:00 AM Scheduled Provider:Sukh Harrington DPM Location[facility] Appointment Type:WC Follow Up Visit (FT) Appointment Date:08/24/2023 10:00:00 AM Scheduled Provider:Migue STROUD MD Location:[facility] Appointment Type: Open Future Scheduled Tests Radiology* XR Chest 2 Views 05/15/23 * XR Chest 2 Views 05/15/23 [facility] [place] Evaluation + Plan note Future Appointments Appointment Date:06/28/2023 09:45:00 AM Scheduled Provider:Sukh Harrington DPM [facility] Appointment Type:WC Follow Up Visit (FT) Appointment Date:08/24/2023 10:00:00 AM Scheduled Provider:Migue STROUD MD Location:[facility] Appointment Type: Open Future Scheduled Tests Radiology* XR Chest 2 Views 05/15/23 * XR Chest 2 Views 05/15/23 [facility]ments Appointment Date:06/28/2023 11:45:00 AM Scheduled Provider:Sukh Harrington DPM [facility] Appointment Type:WC Follow Up Visit (FT) Appointment Date:08/24/2023 10:00:00 AM Scheduled Provider:Migue STROUD MD Location:[facility] Appointment Type: Open Future Scheduled Tests Radiology* XR Chest 2 Views 05/15/23 * XR Chest 2 Views 05/15/23 [facility] [place] Evaluation + Plan note Future Appointments Appointment Date:07/19/2023 10:30:00 AM Scheduled Provider:Sukh Harrington DPM [facility] Appointment Type:WC Follow Up Visit (FT) Appointment Date:08/24/2023 10:00:00 AM Scheduled Provider:Migue STROUD MD Location:[facility] Appointment Type: Open Future Scheduled Tests Radiology* XR Chest 2 Views 05/15/23 * XR Chest 2 Views 05/15/23 [facility] App[facility]ments Appointment Date:08/02/2023 10:45:00 AM Scheduled Provider:Sukh Harrington DPM [facility] Appointment Type:WC Follow Up Visit (FT) Appointment Date:08/24/2023 10:00:00 AM Scheduled Provider:Migue STROUD MD Location:[facility] Appointment Type: Open Future Scheduled Tests Radiology* XR Chest 2 Views 05/15/23 * XR Chest 2 Views 05/15/23 [facility] App[facility]ments Appointment Date:08/16/2023 09:30:00 AM Scheduled Provider:Sukh Harrington DPM [facility] Appointment Type:WC Follow Up Visit (FT) Appointment Date:08/24/2023 10:00:00 AM Scheduled Provider:Migue STROUD MD Location:[facility] Appointment Type: Open Future Scheduled Tests Radiology* XR Chest 2 Views 05/15/23 * XR Chest 2 Views 05/15/23 [facility] App[facility]ments Appointment Date:08/24/2023 10:00:00 AM Scheduled Provider:Migue STROUD MD Location:[facility] Appointment Type: Open Appointment Date:08/30/2023 09:15:00 AM Scheduled Provider:Sukh Harrington DPM [facility] Appointment Type:WC Follow Up Visit (FT) Future Scheduled Tests Radiology* XR Chest 2 Views 05/15/23 * XR Chest 2 Views 05/15/23 [facility] App[facility]ments Appointment Date:08/30/2023 09:15:00 AM Scheduled Provider:Sukh Harrington DPM Location:[facility] Appointment Type:WC Follow Up Visit (FT) Future Scheduled Tests Radiology* XR Chest 2 Views 05/15/23 * XR Chest 2 Views 05/15/23 [facility] Evaluation + Plan note Future Appointments Appointment Date:09/05/2023 03:15:00 PM Scheduled Provider:Smooth Harrington DPM Location:[facility] Appointment Type:WC HBO Eval (FT) Appointment Date:09/13/2023 10:45:00 AM Scheduled Provider:Sukh Harrington DPM Location:[facility] Appointment Type:WC Follow Up Visit (FT) Future Scheduled Tests Radiology* XR Chest 2 Views 05/15/23 * XR Chest 2 Views 05/15/23 [facility] App[facility]ments Appointment Date:09/13/2023 10:45:00 AM Scheduled Provider:Sukh Harrington DPM Location:[facility] Appointment Type:WC Follow Up Visit (FT) Appointment Date:09/18/2023 01:00:00 PM Scheduled Provider: Location[facility] Appointment Type:WC HBO (FT) Future Scheduled Tests Radiology* XR Chest 2 Views 05/15/23 * XR Chest 2 Views 05/15/23 [facility]ments Appointment [...] 05/15/23 * XR Chest 2 Views 05/15/23 [facility] Future Appointments Appointment Date:10/05/2023 11:00:00 AM Scheduled Provider: Location:[facility] Appointment Type:URO Nurse Visit Appointment Date:10/18/2023 09:00:00 AM Scheduled Provider:Taz THOMAS MD Location:[facility] Appointment Type:URO New Patient Appointment Date:10/18/2023 09:15:00 AM Scheduled Provider:Sukh Harrington DPM [facility] Appointment Type: Follow Up Visit (FT) Appointment Date:11/16/2023 09:00:00 AM Scheduled Provider: Location:[facility] Appointment Type:Urology CALL PAT FT Appointment Date:11/20/2023 01:15:00 PM Scheduled Provider: Location:[facility] Appointment Type:Urology FT Future Scheduled Tests Radiology* XR Chest 2 Views 05/15/23 * XR Chest 2 Views 05/15/23 [facility] Future Appointments Appointment Date:10/18/2023 09:00:00 AM Scheduled Provider:Taz THOMAS MD Location:[facility] Appointment Type:URO New Patient Appointment Date:10/18/2023 09:15:00 AM Scheduled Provider:Sukh Harrington DPM [facility] Appointment Type:WC Follow Up Visit (FT) Appointment Date:11/01/2023 02:00:00 PM Scheduled Provider: Location:[facility] Appointment Type:URO Nurse Visit Appointment Date:11/16/2023 09:00:00 AM Scheduled Provider: Location:[facility] Appointment Type:Urology CALL PAT FT Appointment Date:11/20/2023 01:15:00 PM Scheduled Provider: Location:[facility] Appointment Type:Urology FT Future Scheduled Tests Radiology* XR Chest 2 Views 05/15/23 * XR Chest 2 Views 05/15/23 [facility] Evaluation + Plan note Future Appointments Appointment Date:11/01/2023 02:00:00 PM Scheduled Provider: Location:[facility] Appointment Type:URO Nurse Visit Appointment Date:11/16/2023 09:00:00 AM Scheduled Provider: Location:[facility] Appointment Type:Urology CALL PAT FT Appointment Date:11/20/2023 12:00:00 PM Scheduled Provider: Location:[facility] Appointment Type:Urology FT Appointment Date:11/20/2023 01:15:00 PM Scheduled Provider: Location:[facility] Appointment Type:Urology FT Future Scheduled Tests Radiology* XR Chest 2 Views 05/15/23 * XR Chest 2 Views 05/15/23 [facility] Evaluation + Plan note Future Appointments Appointment Date:11/16/2023 09:00:00 AM Scheduled Provider: Location:[facility] Appointment Type:Urology CALL PAT FT Appointment Date:11/20/2023 12:00:00 PM Scheduled Provider: Location:[facility] Appointment Type:Urology FT Appointment Date:11/20/2023 01:15:00 PM Scheduled Provider: Location:[facility] Appointment Type:Urology FT Future Scheduled Tests Radiology* XR Chest 2 Views 05/15/23 * XR Chest 2 Views 05/15/23 [facility] Evaluation + Plan note Future Appointments Appointment Date:12/15/2023 01:30:00 PM Scheduled Provider: Location:[facility] Appointment Type:URO Nurse Visit Appointment Date:12/19/2023 01:00:00 PM Scheduled Provider:Smooth Harrington DPM Location:[facility] Appointment Type:WC Follow Up Visit (FT) Appointment Date:12/20/2023 09:00:00 AM Scheduled Provider:Sukh Harrington DPM Location:[facility] Appointment Type:WC Follow Up Visit (FT) Appointment Date:01/31/2024 10:30:00 AM Scheduled Provider: Location:[facility] Appointment Type:Urology CALL PAT FT Appointment Date:02/05/2024 01:15:00 PM Scheduled Provider: Location:[facility] Appointment Type:Urology FT Future Scheduled Tests Radiology* XR Chest 2 Views 05/15/23 * XR Chest 2 Views 05/15/23 [facility] App[facility]ments Appointment Date:12/19/2023 01:00:00 PM Scheduled Provider:Smooth Harrington DPM [facility] Appointment Type:WC Follow Up Visit (FT) Appointment Date:12/20/2023 11:15:00 AM Scheduled Provider:Sukh Harrington DPM [facility] Appointment Type:WC Follow Up Visit (FT) Appointment Date:01/12/2024 01:00:00 PM Scheduled Provider: Location:[facility] Appointment Type:URO Nurse Visit Appointment Date:01/31/2024 10:30:00 AM Scheduled Provider: Location:[facility] Appointment Type:Urology CALL PAT FT Appointment Date:02/05/2024 01:15:00 PM Scheduled Provider: Location:[facility] Appointment Type:Urology FT Future Scheduled Tests Radiology* XR Chest 2 Views 05/15/23 * XR Chest 2 Views 05/15/23 [facility] Evaluation + Plan note Future Appointments Appointment Date:12/26/2023 01:45:00 PM Scheduled Provider:Smooth Harrington DPM [facility] Appointment Type:WC Follow Up Visit (FT) Appointment Date:01/12/2024 01:00:00 PM Scheduled Provider: Location:[facility] Appointment Type:URO Nurse Visit Appointment Date:01/31/2024 10:30:00 AM Scheduled Provider: Location:[facility] Appointment Type:Urology CALL PAT FT Appointment Date:02/05/2024 01:15:00 PM Scheduled Provider: Location:[facility] Appointment Type:Urology FT Future Scheduled Tests Radiology* XR Chest 2 Views 05/15/23 * XR Chest 2 Views 05/15/23 [facility] App[facility]ments Appointment Date:01/02/2024 03:45:00 PM Scheduled Provider:Smooth Harrington DPM [facility] Appointment Type:WC Follow Up Visit (FT) Appointment Date:01/12/2024 01:00:00 PM Scheduled Provider: Location:[facility] Appointment Type:URO Nurse Visit Appointment Date:01/31/2024 10:30:00 AM Scheduled Provider: Location:[facility] Appointment Type:Urology CALL PAT FT Appointment Date:02/05/2024 01:15:00 PM Scheduled Provider: Location:[facility] Appointment Type:Urology FT Future Scheduled Tests Radiology* XR Chest 2 Views 05/15/23 * XR Chest 2 Views 05/15/23 [facility] App[facility]ments Appointment Date:01/09/2024 02:45:00 PM Scheduled Provider:Smooth Harrington DPM [facility] Appointment Type:WC Follow Up Visit (FT) Appointment Date:01/12/2024 01:00:00 PM Scheduled Provider: Location:[facility] Appointment Type:URO Nurse Visit Appointment Date:01/31/2024 10:30:00 AM Scheduled Provider: Location:[facility] Appointment Type:Urology CALL PAT FT Appointment Date:02/05/2024 01:15:00 PM Scheduled Provider: Location:[facility] Appointment Type:Urology FT Future Scheduled Tests Radiology* XR Chest 2 Views 05/15/23 * XR Chest 2 Views 05/15/23 [facility] App[facility]ments Appointment Date:01/17/2024 10:00:00 AM Scheduled Provider:Sukh Harrington DPM Location:[facility] [facility] Appoint[facility] Type:WC Follow Up Visit (FT) Appointment Date:01/31/2024 10:30:00 AM Scheduled Provider: Location:[facility] Appointment Type:Urology CALL PAT FT Appointment Date:02/05/2024 01:15:00 PM Scheduled Provider: Location:[facility] Appointment Type:Urology FT Future Scheduled Tests Radiology* XR Chest 2 Views 05/15/23 * XR Chest 2 Views 05/15/23 [facility] Evaluation + Plan note Future Appointments Appointment Date:01/23/2024 01:00:00 PM Scheduled Provider:Smooth Harrington DPM [facility] Appointment Type:WC Follow Up Visit (FT) Appointment Date:01/31/2024 10:30:00 AM Scheduled Provider: Location:[facility] Appointment Type:Urology CALL PAT FT Appointment Date:02/05/2024 01:15:00 PM Scheduled Provider: Location:[facility] Appointment Type:Urology FT Future Scheduled Tests Radiology* XR Chest 2 Views 05/15/23 * [facility] Appointment Date:01/31/2024 09:45:00 AM Scheduled Provider:Sukh Harrington DPM [facility] Appointment Type:WC Follow Up Visit (FT) Appointment Date:01/31/2024 10:30:00 AM Scheduled Provider: Location:[facility] Appointment Type:Urology CALL PAT FT Appointment Date:02/05/2024 01:15:00 PM Scheduled Provider: Location:[facility] Appointment Type:Urology FT Future Scheduled Tests Radiology* XR Chest 2 Views 05/15/23 * XR Chest 2 Views [facility]15/23 [facility]ments Appointment Date:02/05/2024 01:00:00 PM Scheduled Provider: Location:[facility] Appointment Type:Urology FT Appointment Date:02/14/2024 10:15:00 AM Scheduled Provider:Sukh Harrington DPM [facility] Appointment Type:WC Follow Up Visit (FT) Future Scheduled Tests Radiology* XR Chest 2 Views 05/15/23 * XR Chest 2 Views 05/15/23 [facility] App[facility]ments Appointment Date:02/14/2024 08:30:00 AM Scheduled Provider: Location:[facility] Appointment Type:URO Nurse Visit Appointment Date:02/14/2024 10:15:00 AM Scheduled Provider:Sukh Harrington DPM [facility] Appointment Type:WC Follow Up Visit (FT) Appointment Date:02/28/2024 07:45:00 AM Scheduled Provider:Taz THOMAS MD Location:[facility] Appointment Type:URO Office Visit Future Scheduled Tests Radiology* XR Chest 2 Views 05/15/23 * XR Chest 2 Views 05/15/23 [facility] App[facility]ments Appointment Date:02/14/2024 08:30:00 AM Scheduled Provider: Location:[facility] Appointment Type:URO Nurse Visit Appointment Date:02/28/2024 07:45:00 AM Scheduled Provider:Taz THOMAS MD Location:[facility] Appointment Type:URO Office Visit Appointment Date:02/28/2024 10:45:00 AM Scheduled Provider:Sukh Harrington DPM [facility] Appointment Type:WC Follow Up Visit (FT) Future Scheduled Tests Radiology* XR Chest 2 Views 05/15/23 * XR Chest 2 Views 05/15/23 [facility] Evaluation + Plan note Future Appointments Appointment Date:02/15/2024 08:30:00 AM Scheduled Provider: Location:[facility] Appointment Type:URO Nurse Visit Appointment Date:02/28/2024 07:45:00 AM Scheduled Provider:Taz THOMAS MD Location:[facility] Appointment Type:URO Office Visit Appointment Date:02/28/2024 10:45:00 AM Scheduled Provider:Sukh Harrington DPM [facility] Appointment Type:WC Follow Up Visit (FT) Future Scheduled Tests Radiology* XR Chest 2 Views 05/15/23 * XR Chest 2 Views 05/15/23 [facility] Evaluation + Plan note Future Appointments Appointment Date:02/28/2024 07:45:00 AM Scheduled Provider:Taz THOMAS MD Location:[facility] Appointment Type:URO Office Visit Appointment Date:02/28/2024 10:45:00 AM Scheduled Provider:Sukh Harrington DPM [facility] Appointment Type:WC Follow Up Visit (FT) Future Scheduled Tests Radiology* XR Chest 2 Views 05/15/23 * XR Chest 2 Views 05/15/23 [facility] Evaluation + Plan note Future Appointments Appointment Date:03/06/2024 10:45:00 AM Scheduled Provider:Sukh Harrington DPM [facility] Appointment Type:WC Follow Up Visit (FT) Appointment Date:09/04/2024 03:15:00 PM Scheduled Provider:Taz THOMAS MD Location:[facility] Appointment Type:URO Office Visit Future Scheduled Tests Laboratory* Basic Metabolic Panel 02/28/24 Radiology* XR Chest 2 Views 05/15/23 * XR Chest 2 Views 05/15/23 [facility] Evaluation + Plan note Future Appointments Appointment Date:03/13/2024 10:30:00 AM Scheduled Provider:Sukh Harrington DPM [facility] Appointment Type:WC Follow Up Visit (FT) Appointment Date:09/04/2024 03:15:00 PM Scheduled Provider:Taz THOMAS MD Location:[facility] Appointment Type:URO Office Visit Future Scheduled Tests Laboratory* Basic Metabolic Panel 02/28/24 Radiology* XR Chest 2 Views 05/15/23 * XR Chest 2 Views 05/15/23 [facility] App[facility]ments Appointment Date:03/13/2024 10:30:00 AM Scheduled Provider:Sukh Harrington DPM [facility] Appointment Type:WC Follow Up Visit (FT) Appointment Date:09/04/2024 03:15:00 PM Scheduled Provider:Taz THOMAS MD Location:[facility] Appointment Type:URO Office Visit Future Scheduled Tests Radiology* XR Chest 2 Views 05/15/23 * XR Chest 2 Views 05/15/23 [facility] App[facility]ments Appointment Date:09/04/2024 03:15:00 PM Scheduled Provider:Taz THOMAS MD Location:[facility] Appointment Type:URO [facility]* Diagnosis Onset Date Resolution Status Edema acuteHypertensionacuteHypoxemiaacuteVolume overloadacute [facility] Work Phone: evaluation note* Diagnosis Onset Date Resolution Status Acute on chronic respiratory failure wit h hypoxia and hypercapnia acuteEdemaacuteHypertensionacuteHypertensive urgencyacuteHypoxemiaacuteObesity hypoventilation syndromeacuteObstructive sleep apneaacuteRespiratory failure acuteRight heart failureacuteVolume overloadacute [facility] Work Phone: Evaluation note* Diagnosis Onset Date Resolution Status Acute respiratory distress acuteCHF (congestive heart failure)acuteCOPD (chronic obstructive pulmonary disease)acuteLymphedemaacute [facility] Work Phone: evaluation note* Diagnosis Onset Date Resolution Status Acute on chronic respiratory failure wit h hypoxia and hypercapnia acuteAcute respiratory distressacuteAKI (acute kidney injury)acuteCHF (congestive heart failure)acuteCKD (chronic kidney disease) stage 3, GFR 30-59 ml/minacuteCOPD (chronic obstructive pulmonary disease)acuteDiabetes mellitus, type 2acuteHyperkalemiaacuteHypertensionacuteLymphedemaacuteObesity hypoventilation syndromeacuteUrine retentionacute [facility] Work Phone: evaluation note* Diagnosis Onset [...] pulmonary disease)acuteDiabetes mellitus, type 2acuteDiastolic heart failureacuteEdemaacuteHypernatremiaacute [id number] alkalosis with respiratory acidosisacuteObesity hypoventilation syndromeacuteType 2 diabetes mellitus with diabetic chronic kidney diseaseacuteUrine retentionacute Hyperkalemiaresolved [facility] Work Phone: Evaluation note* Diagnosis 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 HealthcareEvaluation note* Diagnosis Encounter for Medicare annual wellness exam- Primary Type 2 diabetes mellitus with hyperglycemia, without long-term current use of insulin ([facility]) RLS (restless legs syndrome) Restless legs syndrome (RLS) Chronic hypoxemic respiratory failure ([facility]) Chronic respiratory failure Stage 3b chronic kidney disease (HCC) ([facility]) 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 Morbid obesity ([facility]) Morbid obesity BMI 40.0-44.9, adult ([facility]) Other diabetic neurological complication associated with type 2 diabetes mellitus ([facility]) TC (obstructive sleep apnea) Obstructive sleep apnea (adult) (pediatric) Restless leg syndrome Restless legs syndrome (RLS) Acute on chronic respiratory failure with hypoxia and hypercapnia ([facility]) Obesity hypoventilation syndrome ([facility]) Obesity hypoventilation syndrome Hypertension, unspecified type ([facility]) Varicose veins of both lower extremities, unspecified whether complicated Gastroesophageal reflux disease, unspecified whether esophagitis present 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 HealthcareEvaluation note* Diagnosis Encounter for Medicare annual wellness exam- Primary Type 2 diabetes mellitus with hyperglycemia, without long-term current use of insulin ([facility]) RLS (restless legs syndrome) Restless legs syndrome (RLS) Chronic hypoxemic respiratory failure ([facility]) Chronic respiratory failure Stage 3b chronic kidney disease (HCC) ([facility] 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 Morbid obesity ([facility]) Morbid obesity BMI 40.0-44.9, adult ([facility]) Other diabetic neurological complication associated with type 2 diabetes mellitus (CMS/HCC) TC (obstructive sleep apnea) Obstructive sleep apnea (adult) (pediatric) Restless leg syndrome Restless legs syndrome (RLS) Acute on chronic respiratory failure with hypoxia and hypercapnia (CMS/HCC) Obesity hypoventilation syndrome ([facility]/HCC) Obesity hypoventilation syndrome Hypertension, unspecified type (CMS/HCC) Varicose veins of both lower extremities, unspecified whether complicated Gastroesophageal reflux disease, unspecified whether esophagitis present 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 ([facility]) Mixed hyperlipidemia ([facility]) Mixed hyperlipidemia Long-term insulin use ([facility]) Acute pain of right shoulder- Primary Chronic hypoxemic respiratory failure (CMS/[facility]) Chronic respiratory failure Hypertension, unspecified type ([facility]) BMI 40.0-44.9, adult ([facility]) Morbid obesity ([facility]) Morbid obesity Type 2 diabetes mellitus with hyperglycemia, with long-term current use of insulin ([facility]) documented in this encounter [facility] HealthcareEvaluation note* Diagnosis Encounter for Medicare annual wellness exam- Primary Type 2 diabetes mellitus with hyperglycemia, without long-term current use of insulin ([facility]) RLS (restless legs syndrome) Restless legs syndrome (RLS) Chronic hypoxemic respiratory failure ([facility]) Chronic respiratory failure Stage 3b chronic kidney disease (HCC) ([facility] 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 Morbid obesity ([facility]) Morbid obesity BMI 40.0-44.9, adult ([facility]) Other diabetic neurological complication associated with type 2 diabetes mellitus ([facility]) TC (obstructive sleep apnea) Obstructive sleep apnea (adult) (pediatric) Restless leg syndrome Restless legs syndrome (RLS) Acute on chronic respiratory failure with hypoxia and hypercapnia (CMS/HCC) Obesity hypoventilation syndrome ([facility]/HCC) Obesity hypoventilation syndrome Hypertension, unspecified type ([facility]) Varicose veins of both lower extremities, unspecified whether complicated Gastroesophageal reflux disease, unspecified whether esophagitis present 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 (CMS/HCC) Mixed hyperlipidemia ([facility]/HCC) Mixed hyperlipidemia Long-term insulin use ([facility]) Difficulty walking- Primary Difficulty in walking Acute on chronic respiratory failure with hypoxia and hypercapnia ([facility]) Hypertension, unspecified type ([facility]) Type 2 diabetes mellitus with hyperglycemia, with long-term current use of insulin ([facility]) Morbid obesity ([facility]) Morbid obesity BMI 40.0-44.9, adult ([facility]) Type 2 diabetes mellitus with hyperglycemia, with long-term current use of insulin ([facility]) documented in this encounter [facility] HealthcareEvaluation note* Diagnosis Encounter for Medicare annual wellness exam- Primary Type 2 diabetes mellitus with hyperglycemia, without long-term current use of insulin ([facility]) RLS (restless legs syndrome) Restless legs syndrome (RLS) Chronic hypoxemic respiratory failure ([facility]) Chronic respiratory failure Stage 3b chronic kidney disease (HCC) ([facility] 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 Morbid obesity ([facility] Morbid obesity BMI 40.0-44.9, adult ([facility]) Other diabetic neurological complication associated with type 2 diabetes mellitus ([facility]) TC (obstructive sleep apnea) Obstructive sleep apnea (adult) (pediatric) Restless leg syndrome Restless legs syndrome (RLS) Acute on chronic respiratory failure with hypoxia and hypercapnia ([facility]) Obesity hypoventilation syndrome ([facility] Obesity hypoventilation syndrome Hypertension, unspecified type ([facility]) Varicose veins of both lower extremities, unspecified whether complicated Gastroesophageal reflux disease, unspecified whether esophagitis present 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 ([facility]) Mixed hyperlipidemia ([facility] Mixed hyperlipidemia Long-term insulin use ([facility]) Type 2 diabetes mellitus with hyperglycemia, with long-term current use of insulin ([facility] Primary Insulin long-term use ([facility]) Encounter for long-term (current) use of insulin Vitamin D deficiency Encounter for dietary consultation Hyperlipemia, mixed ([facility]) Mixed hyperlipidemia Primary hypertension ([facility]) Unspecified essential hypertension Class 2 severe obesity due to excess calories with serious comorbidity and body mass index (BMI) of38.0 to 38.9 in adult ([facility]) documented in this encounter [facility] HealthcareEvaluation note* Diagnosis Encounter for Medicare annual wellness exam- Primary Type 2 diabetes mellitus with hyperglycemia, without long-term current use of insulin ([facility]) RLS (restless legs syndrome) Restless legs syndrome (RLS) Chronic hypoxemic respiratory failure ([facility]) Chronic respiratory failure Stage 3b chronic kidney disease (HCC) ([facility]) 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 Morbid obesity ([facility] Morbid obesity BMI 40.0-44.9, adult ([facility]) Other diabetic neurological complication associated with type 2 diabetes mellitus ([facility]) TC (obstructive sleep apnea) Obstructive sleep apnea (adult) (pediatric) Restless leg syndrome Restless legs syndrome (RLS) Acute on chronic respiratory failure with hypoxia and hypercapnia ([facility]) Obesity hypoventilation syndrome ([facility]) Obesity hypoventilation syndrome Hypertension, unspecified type ([facility]) Varicose veins of both lower extremities, unspecified whether complicated Gastroesophageal reflux disease, unspecified whether esophagitis present 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 HealthcareEvaluation note* Diagnosis 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, unspecified proliferative retinopathy type ([facility])- Primary 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1 diabetes mellitus ([facility]) documented in this encounter [facility] HealthcareEvaluation note* Diagnosis 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, unspecified proliferative retinopathy type ([facility])- Primary documented in this encounter [facility] HealthcareEvaluation note* Diagnosis Encounter for Medicare annual wellness exam- Primary Type 2 diabetes mellitus with hyperglycemia, without long-term current use of insulin ([facility]) RLS (restless legs syndrome) Restless legs syndrome (RLS) Chronic hypoxemic respiratory failure ([facility]) Chronic respiratory failure Stage 3b chronic kidney disease (HCC) ([facility] 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 Morbid obesity ([facility]) Morbid obesity BMI 40.0-44.9, adult ([facility]) Other diabetic neurological complication associated with type 2 diabetes mellitus ([facility]) TC (obstructive sleep apnea) Obstructive sleep apnea (adult) (pediatric) Restless leg syndrome Restless legs syndrome (RLS) Acute on chronic respiratory failure with hypoxia and hypercapnia ([facility]) Obesity hypoventilation syndrome ([facility]) Obesity hypoventilation syndrome Hypertension, unspecified type ([facility]) Varicose veins of both lower extremities, unspecified whether complicated Gastroesophageal reflux disease, unspecified whether esophagitis present 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 HealthcareEvaluation note* Diagnosis Encounter for Medicare annual wellness exam- Primary Type 2 diabetes mellitus with hyperglycemia, without long-term current use of insulin ([facility]) RLS (restless legs syndrome) Restless legs syndrome (RLS) Chronic hypoxemic respiratory failure ([facility]) Chronic respiratory failure Stage 3b chronic kidney disease (HCC) ([facility] 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 Morbid obesity ([facility] Morbid obesity BMI 40.0-44.9, adult ([facility]) Other diabetic neurological complication associated with type 2 diabetes mellitus ([facility]) TC (obstructive sleep apnea) Obstructive sleep apnea (adult) (pediatric) Restless leg syndrome Restless legs syndrome (RLS) Acute on chronic respiratory failure with hypoxia and hypercapnia ([facility]) Obesity hypoventilation syndrome ([facility]) Obesity hypoventilation syndrome Hypertension, unspecified type ([facility]) Varicose veins of both lower extremities, unspecified whether complicated Gastroesophageal reflux disease, unspecified whether esophagitis present 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 ([facility]) Mixed hyperlipidemia ([facility]) Mixed hyperlipidemia Long-term insulin use ([facility]) Type 2 diabetes mellitus with hyperglycemia, with long-term current use of insulin ([facility] [facility] Primary Insulin long-term use ([facility]) Encounter for long-term (current) use of insulin Vitamin D deficiency Encounter for dietary consultation Hyperlipemia, mixed ([facility]) Mixed hyperlipidemia Primary hypertension ([facility]) Unspecified essential hypertension documented in this encounter [facility] HealthcareEvaluation note* Diagnosis Encounter for Medicare annual wellness exam- Primary Type 2 diabetes mellitus with hyperglycemia, without long-term current use of insulin ([facility]) RLS (restless legs syndrome) Restless legs syndrome (RLS) Chronic hypoxemic respiratory failure ([facility]) Chronic respiratory failure Stage 3b chronic kidney disease (HCC) ([facility]) 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 Morbid obesity ([facility]) Morbid obesity BMI 40.0-44.9, adult ([facility]) Other diabetic neurological complication associated with type 2 diabetes mellitus TC (obstructive sleep apnea) Obstructive sleep apnea (adult) (pediatric) Restless leg syndrome Restless legs syndrome (RLS) Acute on chronic respiratory failure with hypoxia and hypercapnia ([facility]) Obesity hypoventilation syndrome ([facility]) Obesity hypoventilation syndrome Hypertension, unspecified type ([facility]) Varicose veins of both lower extremities, unspecified whether complicated Gastroesophageal reflux disease, unspecified whether esophagitis present 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 Mixed hyperlipidemia ([facility]) Mixed hyperlipidemia Long-term insulin use ([facility]) Chronic hypoxemic respiratory failure ([facility])- Primary Chronic respiratory failure Acute cough Chest congestion Other symptoms involving respiratory system and chest Type 2 diabetes mellitus with hyperglycemia, with long-term current use of insulin ([facility]) Long-term insulin use ([facility]) Difficulty walking Difficulty in walking Leg weakness, bilateral Muscle weakness (generalized) BMI 35.0-35.9,adult Morbid obesity ([facility]) Morbid obesity Type 2 diabetes mellitus with diabetic chronic kidney disease ([facility]) Chronic kidney disease, stage 3b (HCC) ([facility]) Essential (primary) hypertension ([facility]) Unspecified essential hypertension Acquired absence of left foot ([facility]) Need for immunization against influenza Need for prophylactic vaccination and inoculation against influenza Need for pneumococcal vaccination Need for prophylactic vaccination against streptococcus pneumoniae (pneumococcus) documented in this encounter [facility] HealthcareEvaluation note* Diagnosis Encounter for Medicare annual wellness exam- Primary Type 2 diabetes mellitus with hyperglycemia, without long-term current use of insulin ([facility]) RLS (restless legs syndrome) Restless legs syndrome (RLS) Chronic hypoxemic respiratory failure ([facility]) Chronic respiratory failure Stage 3b chronic kidney disease (HCC) ([facility]) 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 Morbid obesity ([facility]) Morbid obesity BMI 40.0-44.9, adult ([facility]) Other diabetic neurological complication associated with type 2 diabetes mellitus TC (obstructive sleep apnea) Obstructive sleep apnea (adult) (pediatric) Restless leg syndrome Restless legs syndrome (RLS) Acute on chronic respiratory failure with hypoxia and hypercapnia ([facility]) Obesity hypoventilation syndrome ([facility]) Obesity hypoventilation syndrome Hypertension, unspecified type ([facility]) Varicose veins of both lower extremities, unspecified whether complicated Gastroesophageal reflux disease, unspecified whether esophagitis present 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 HealthcareEvaluation note* Diagnosis Encounter for Medicare annual wellness exam- Primary Type 2 diabetes mellitus with hyperglycemia, without long-term current use of insulin ([facility]) RLS (restless legs syndrome) Restless legs syndrome (RLS) Chronic hypoxemic respiratory failure ([facility]) Chronic respiratory failure Stage 3b chronic kidney disease (HCC) ([facility]) 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 Morbid obesity ([facility]) Morbid obesity BMI 40.0-44.9, adult ([facility]) Other diabetic neurological complication associated with type 2 diabetes mellitus TC (obstructive sleep apnea) Obstructive sleep apnea (adult) (pediatric) Restless leg syndrome Restless legs syndrome (RLS) Acute on chronic respiratory failure with hypoxia and hypercapnia ([facility]) Obesity hypoventilation syndrome ([facility]) Obesity hypoventilation syndrome Hypertension, unspecified type ([facility]) Varicose veins of both lower extremities, unspecified whether complicated Gastroesophageal reflux disease, unspecified whether esophagitis present 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 Mixed hyperlipidemia ([facility]) Mixed hyperlipidemia Long-term insulin use ([facility]) Type 2 diabetes mellitus with hyperglycemia, with long-term current use of insulin ([facility] Primary Insulin long-term use ([facility]) Encounter for long-term (current) use of insulin Vitamin D deficiency Encounter for dietary consultation Hyperlipemia, mixed ([facility]) Mixed hyperlipidemia Primary hypertension ([facility]) Unspecified essential hypertension documented in this encounter [facility] HealthcareEvaluation note* Diagnosis Encounter for Medicare annual wellness exam- Primary Type 2 diabetes mellitus with hyperglycemia, without long-term current use of insulin ([facility]) RLS (restless legs syndrome) Restless legs syndrome (RLS) Chronic hypoxemic respiratory failure ([facility]) Chronic respiratory failure Stage 3b chronic kidney disease (HCC) ([facility]) 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 Morbid obesity ([facility]) Morbid obesity BMI 40.0-44.9, adult ([facility]) Other diabetic neurological complication associated with type 2 diabetes mellitus TC (obstructive sleep apnea) Obstructive sleep apnea (adult) (pediatric) Restless leg syndrome Restless legs syndrome (RLS) Acute on chronic respiratory failure with hypoxia and hypercapnia ([facility]) Obesity hypoventilation syndrome ([facility]) Obesity hypoventilation syndrome Hypertension, unspecified type ([facility]) Varicose veins of both lower extremities, unspecified whether complicated Gastroesophageal reflux disease, unspecified whether esophagitis present 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 Mixed hyperlipidemia ([facility]) Mixed hyperlipidemia Long-term insulin use ([facility]) Muscle cramps- Primary Varicose veins of both lower extremities, unspecified whether complicated Type 2 diabetes mellitus with hyperglycemia, with long-term current use of insulin ([facility]) Essential (primary) hypertension ([facility]) Unspecified essential hypertension documented in this encounter [facility] HealthcareEvaluation note* Diagnosis Encounter for Medicare annual wellness exam- Primary Type 2 diabetes mellitus with hyperglycemia, without long-term current use of insulin ([facility]) RLS (restless legs syndrome) Restless legs syndrome (RLS) Chronic hypoxemic respiratory failure ([facility]) Chronic respiratory failure Stage 3b chronic kidney disease (HCC) ([facility]) 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 Morbid obesity ([facility]) Morbid obesity BMI 40.0-44.9, adult ([facility]) Other diabetic neurological complication associated with type 2 diabetes mellitus TC (obstructive sleep apnea) Obstructive sleep apnea (adult) (pediatric) Restless leg syndrome Restless legs syndrome (RLS) Acute on chronic respiratory failure with hypoxia and hypercapnia ([facility]) Obesity hypoventilation syndrome ([facility]) Obesity hypoventilation syndrome Hypertension, unspecified type ([facility]) Varicose veins of both lower extremities, unspecified whether complicated Gastroesophageal reflux disease, unspecified whether esophagitis present 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 Mixed hyperlipidemia ([facility]) Mixed hyperlipidemia Long-term insulin use ([facility]) Anxiousness- Primary Anxiety state, unspecified documented in this encounter [facility] HealthcareEvaluation note* Diagnosis Encounter for Medicare annual wellness exam- Primary Type 2 diabetes mellitus with hyperglycemia, without long-term current use of insulin ([facility]) RLS (restless legs syndrome) Restless legs syndrome (RLS) Chronic hypoxemic respiratory failure (HCC) Chronic respiratory failure Stage 3b chronic kidney disease ([facility]) 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 Morbid obesity ([facility] [place] [place]) Morbid obesity BMI 40.0-44.9, adult ([facility] [place] [place]) Other diabetic neurological complication associated with type 2 diabetes mellitus ([facility]) TC (obstructive sleep apnea) Obstructive sleep apnea (adult) (pediatric) Restless leg syndrome Restless legs syndrome (RLS) Acute on chronic respiratory failure with hypoxia and hypercapnia (HCC) Obesity hypoventilation syndrome ([facility]) Obesity hypoventilation syndrome Hypertension, unspecified type Varicose [...] use of insulin (HCC) Long-term insulin use ([facility]) Morbid obesity ([facility]) Morbid obesity BMI 36.0-36.9,adult documented in this encounter [facility] HealthcareEvaluation note* Diagnosis Encounter for Medicare annual wellness exam- Primary Type 2 diabetes mellitus with hyperglycemia, without long-term current use of insulin ([facility]) RLS (restless legs syndrome) Restless legs syndrome (RLS) Chronic hypoxemic respiratory failure (HCC) Chronic respiratory failure Stage 3b chronic kidney disease ([facility]) 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 Morbid obesity ([facility]) Morbid obesity BMI 40.0-44.9, adult ([facility] [place] [place]) Other diabetic neurological complication associated with type 2 diabetes mellitus ([facility]) TC (obstructive sleep apnea) Obstructive sleep apnea (adult) (pediatric) Restless leg syndrome Restless legs syndrome (RLS) Acute on chronic respiratory failure with hypoxia and hypercapnia (HCC) Obesity hypoventilation syndrome ([facility]) Obesity hypoventilation syndrome Hypertension, unspecified type Varicose veins of both lower extremities, unspecified whether complicated Gastroesophageal reflux disease, unspecified whether esophagitis present 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 (HCC) Mixed hyperlipidemia Mixed hyperlipidemia Long-term insulin use ([facility]) Hospital discharge follow-up- Primary Other follow-up examination Type 2 diabetes mellitus with hyperglycemia, with long-term current use of insulin ([facility]) Hyperosmolar hyperglycemic state (HHS) ([facility]) Muscle cramps Long-term insulin use ([facility]) Difficulty walking Difficulty in walking Essential (primary) hypertension Unspecified essential hypertension Morbid obesity ([facility]) Morbid obesity BMI 38.0-38.9,adult documented in this encounter [facility] HealthcareEvaluation note* Diagnosis Encounter for Medicare annual wellness exam- Primary Type 2 diabetes mellitus with hyperglycemia, without long-term current use of insulin ([facility]) RLS (restless legs syndrome) Restless legs syndrome (RLS) Chronic hypoxemic respiratory failure (HCC) Chronic respiratory failure Stage 3b chronic kidney disease ([facility] [place] [place]) 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 Morbid obesity ([facility] [place] [place]) Morbid obesity BMI 40.0-44.9, adult ([facility] [place] [place]) Other diabetic neurological complication associated with type 2 diabetes mellitus ([facility]) TC (obstructive sleep apnea) Obstructive sleep apnea (adult) (pediatric) Restless leg syndrome Restless legs syndrome (RLS) Acute on chronic respiratory failure with hypoxia and hypercapnia ([facility]) Obesity hypoventilation syndrome ([facility] [place] [place]) Obesity hypoventilation syndrome Hypertension, unspecified type Varicose veins of both lower extremities, unspecified whether complicated Gastroesophageal reflux disease, unspecified whether esophagitis present 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 ([facility]) Mixed hyperlipidemia Mixed hyperlipidemia Long-term insulin use ([facility]) Grief- Primary Adjustment disorder with depressed mood Anxiousness Anxiety state, unspecified Neck pain Cervicalgia Type 2 diabetes mellitus with hyperglycemia, with long-term current use of insulin ([facility]) Essential (primary) hypertension Unspecified essential hypertension Morbid obesity ([facility] [place] [place]) Morbid obesity BMI 36.0-36.9,adult documented in this encounter [facility] HealthcareEvaluation note* Diagnosis Encounter for Medicare annual wellness exam- Primary Type 2 diabetes mellitus with hyperglycemia, without long-term current use of insulin ([facility]) RLS (restless legs syndrome) Restless legs syndrome (RLS) Chronic hypoxemic respiratory failure (HCC) Chronic respiratory failure Stage 3b chronic kidney disease ([facility] [place] [place]) 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 Morbid obesity ([facility] [place] [place]) Morbid obesity BMI 40.0-44.9, adult ([facility] [place] [place]) Other diabetic neurological complication associated with type 2 diabetes mellitus ([facility]) TC (obstructive sleep apnea) Obstructive sleep apnea (adult) (pediatric) Restless leg syndrome Restless legs syndrome (RLS) Acute on chronic respiratory failure with hypoxia and hypercapnia ([facility]) Obesity hypoventilation syndrome ([facility] [place] [place]) Obesity hypoventilation syndrome Hypertension, unspecified type Varicose veins of both lower extremities, unspecified whether complicated Gastroesophageal reflux disease, unspecified whether esophagitis present 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 (HCC) Mixed hyperlipidemia Long-term insulin use ([facility]) 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 [...] respiratory failure Stage 3b chronic kidney disease ([facility]) 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 Morbid obesity ([facility]) Morbid obesity BMI 40.0-44.9, adult ([facility]) Other diabetic neurological complication associated with type 2 diabetes mellitus (HCC) TC (obstructive sleep apnea) Obstructive sleep apnea (adult) (pediatric) Restless leg syndrome Restless legs syndrome (RLS) Acute on chronic respiratory failure with hypoxia and hypercapnia (HCC) Obesity hypoventilation syndrome ([facility]) Obesity hypoventilation syndrome Hypertension, unspecified type Varicose [...] No change in regimen. [facility] No data available for this section [facility] Discharge instructions No data available for this section [facility] Discharge instructions Additional Instructions Continue oxygen [...] kerlix Please keep previously scheduled appointment with wet finisher wool in [place]. [facility] Work Phone: Progress note No data available for this section [facility] N[facility] - Outpatient (Routine) - AuthorizedSpecialtyDiagnoses / ProceduresReferred By ContactReferred To ContactPhysical Therapy Diagnoses Difficulty in walking, not elsewhere classified Other symptoms and signs involving the musculoskeletal system Acquired absence of left foot (CMS/HCC) Procedures AR PHYS THERAPY EVALUATION Mounika Brooke MD [address] [place] [address] Phone: tel: fax: Mone Mcguire, PT [address] [facility] [address] [place] [address] Phone: tel: fax: Referral IDStatusReasonStart DateExpiration DateVisits RequestedVisits [id number] [facility] Healthcare Chief Complaint and Reason for [...] 2 Diastolic heart failure Edema Hypernatremia Hypertension [id number] Lymphedema Metabolic alkalosis with respiratory acidosis Obesity [...] Brooke DO Primary Care Provider Active Devika Vidal ProviderActiveMictrisha Arrington DOAdmit Provider, Attending ProviderActive Team Status: Active Member Role Status Dates Migue Stroud MD Primary Care Provider Active Team Status: Inactive Member Role Status Dates Art Kirby DO Emergency Provider Active Alban Arrington DOAdmit Provider, Attending ProviderActiveAmrik De Guzman MD Other ProviderActiveLeni Youngfayette medical centermckenna Care ProviderActiveTeam Member RelationshipSpecialtyStart DateEnd Date Mounika Brooke MD [address] [place] [address] PCP - [facility]07/27/23 Team Status: Active Member Role Status [...] Date Mounika Brooke MD [address] [place] [address] PCP - General acute hospital Medicine10/23/23 [place] [id number] [facility] [address] [place], [place] [id number] PhysicianNephrology10/31/23 Team Status: Inactive Member Role Status [...] ProviderActiveStart: November 12, 2023 Katelin Alexander , INSURANCE COORDINATOR-COther ProviderActiveStart: November 12, 2023 Bladimir Story MDAttending Provider, Other ProviderActiveStart: November 12, 2023 Immanuel Pozo MDOther ProviderActiveStart: November 12, 2023 Satanm Guevara MDOther ProviderActiveStart: November 12, 2023 Gigi Cooper MDOther ProviderActiveStart: November 12, 2023 Team MemberRelationshipSpecialtyStart DateEnd Date Mounika Brooke MD [address] [place] [address] PCP - General acute hospital Medicine10/23/23 [place] [id number] [facility] [address] [place], [place] [id number] PhysicianNephrology10/31/23Team MemberRelationshipSpecialtyStart DateEnd Date Mounika Brooke MD [address] [place] [address] [facility]10/23/23 [place] [id number] [facility] [address] [place] [address] PhysicianNephrology10/31/23Team MemberRelationshipSpecialtyStart DateEnd Date Mounika Brooke MD [address] [place] [address] PCP - [facility]07/27/23Team MemberRelationshipSpecialtyStart DateEnd Date Mounika Brooke MD [address] [place] [address] PCP - [facility]07/27/23Team MemberRelationshipSpecialtyStart DateEnd Date Mounika Brooke MD [address] [place] [address] PCP - [facility]07/27/23 Mounika Brooke MD [address] [place] [address] PCP - [facility]/Te MemberRelationshipSpecialtyStart DateEnd Date Mounika Brooke MD [address] [place] [address] PCP - [facility]07/27/23 Mounika Brooke MD [address] [place] [address] PCP - [facility]/ Jennifer Short PA [address] [place] [address] Physician [facility]06/24/24Team MemberRelationshipSpecialtyStart DateEnd Date Mounika Brooke MD [address] [place] [address] PCP - [facility]07/27/23 Mounika Brooke MD [address] [place] [address] [facility]/Te MemberRelationshipSpecialtyStart [facility] Date Mounika Brooke MD [address] [place] [address] PCP - [facility]07/27/23 Mounika Brooke MD [address] [place] [address] PCP - [facility] Jennifer Short PA [address] [place] [address] Physician [facility]06/24/24Te MemberRelationshipSpecialtyStart [facility] Date Mounika Brooke MD [address] [place] [address] PCP - [facility]07/27/23 Mounika Brooke MD [address] [place] [address] [facility] [facility] Jennifer Short PA [address] [place] [address] Physician AssistantChildren'S Healthcare Of [facility]06/24/24Te MemberRelationshipSpecialtyStart [facility] Date Mounika Brooke MD [address] [place] [address] PCP - [facility]07/27/23 Mounika Brooke MD [address] [place] [address] [place] [address]/ Jennifer Short PA [address] [place] [address] Physician [facility]06/24/24Te MemberRelationshipSpecialtyStart [facility] Mounika Brooke MD [address] [place] [address] PCP [facility]07/27/23 Mounika Brooke MD [address] [place] [address] [place] [address] Jennifer Short PA [address] [place] [address] Physician [facility]06/24/24[facility] MemberRelationshipSpecialtyStart [facility] Mounika Brooke MD [address] [place] [address] PCP [facility]07/27/23 Mounika Brooke MD [address] [place] [address] [place] [address] Jennifer Short PA [address] [place] [address] Physician [facility]06/24/24Te MemberRelationshipSpecialtyStart [facility] Mounika Brooke MD [address] [place] [address] PCP - [facility]07/27/23 Mounika Brooke MD [address] [place] [address] PCP - [facility]/08/2411 Jennifer Short PA [address] [place] [address] Physician [facility]06/24/24Te MemberRelationshipSpecialtyStart DateEnd Date Mounika Brooke MD [address] [place] [address] PCP - [facility]07/27/23Team MemberRelationshipSpecialtyStart DateEnd Date Mounika Brooke MD [address] [place] [address] PCP - [facility]07/27/23Team MemberRelationshipSpecialtyStart DateEnd Date Mounika Brooke MD [address] [place] [address] PCP - [facility]07/27/23Team MemberRelationshipSpecialtyStart DateEnd Date Mounika Brooke MD [address] [place] [address] PCP - [facility]07/27/23Team MemberRelationshipSpecialtyStart DateEnd Date Mounika Brooke MD [address] [place] [address] PCP - [facility]07/27/23Te MemberRelationshipSpecialtyStart DateEnd Date Mounika Brooke MD [address] [place] [address] PCP - [facility]07/27/23Te MemberRelationshipSpecialtyStart DateEnd Date Mounika Brooke MD [address] [place] [address] PCP - [facility]07/27/23 Jennifer Short PA [address] [place] [address] Physician [facility]06/24/24Te MemberRelationshipSpecialtyStart DateEnd Date Mounika Brooke MD [address] [place] [address] PCP - [facility]07/27/23 Jennifer Short PA [address] [place] [address] Physician [facility]06/24/24Te MemberRelationshipSpecialtyStart DateEnd Date Mounika Brooke MD [address] [place] [address] PCP [facility]07/27/23 Mounika Brooke MD [address] [place] [address] [facility]11/19/24 Jennifer Short PA [address] [place] [address] Physician Assistantmily Djoalskn87/4/24 Janice Kevin, [facility] Social WorkerChildren'[facility]12/04/24Team MemberRelationshipSpecialtyStart DateEnd Date Mounika Brooke MD [address] [place] [address] PCP - [facility]07/27/23 Mounika Brooke MD [address] [place] [address] PCP - [facility]11/19/24 Jennifer Short PA [address] [place] [address] Physician [facility]Prov[facility] Ltpbevan35/4/24 Janice Kevin, [facility] WorkerChildren'[facility] Healthcare [facility]dingTeam MemberRelationshipSpecialtyStart DateEnd Date Mounika Brooke MD [address] [place] [address] PCP - [facility]07/27/23 Mounika Brooke MD [address] [place] [address] PCP - [facility]11/19/24 Jennifer Short PA [address] [place] [address] Physician AssistantChildren[facility]06/24/24Team MemberRelationshipSpecialtyStart DateEnd Date Mounika Brooke MD [address] [place] [address] PCP - [facility]07/27/23 Mounika Brooke MD [address] [place] [address] PCP - [facility]11/19/24 Jennifer Short PA [address] [place] [address] Physician [facility]06/24/24Team MemberRelationshipSpecialtyStart DateEnd Mounika Brooke MD [address] [place] [address] PCP - [facility]07/27/23 Mounika Brooke MD [address] [place] [address] PCP - [facility]11/19/24 Jennifer Short PA [address] [place] [address] Physician [facility]06/24/24Team MemberRelationshipSpecialtyStart DateEnd Mounika Brooke MD [address] [place] [address] PCP [facility]07/27/23 Mounika Brooke MD [address] [place] [address] PCP - [facility]11/19/24 Jennfier Short PA [address] [place] [address] Physician AssistantChildren[facility]06/24/24Team MemberRelationshipSpecialtyStart DateEnd Mounika Brooke MD [address] [place] [address] PCP - [facility]07/27/23 Mounika Brooke MD [address] [place] [address] PCP - [facility]11/19/24 Jennifer Short PA [address] [place] [address] Physician [facility]06/24/24Te MemberRelationshipSpecialtyStart DateEnd Mounika Brooke MD [address] [place] [address] PCP - [facility]07/27/23 Mounika Brooke MD [address] [place] [address] PCP - [facility]11/19/24 Jennifer Short PA [address] [place] [address] Physician [facility]06/24/24Te MemberRelationshipSpecialtyStart End Mounika Brooke MD [address] [place] [address] PCP - [facility]07/27/23 Mounika Brooke MD [address] [place] [address] PCP - [facility]11/19/24 Jennifer Shotr PA [address] [place] [address] Physician [facility]06/24/24Te MemberRelationshipSpecialtyStart DateEnd Mounika Brooke MD [address] [place] [address] PCP - [facility]07/27/23 Mounika Brooke MD [address] [place] [address] PCP - [facility]11/19/24 Jennifer Short PA [address] [place] [address] Physician [facility]06/24/24Te MemberRelationshipSpecialtyStart End Mounika Brooke MD [address] [place] [address] PCP - [facility]07/27/23 Mounika Brooke MD [address] [place] [address] PCP - [facility]11/19/24 Jennifer Short PA [address] [place] [address] Physician [facility]06/24/24Te MemberRelationshipSpecialtyStart DateEnd Mounika Brooke MD [address] [place] [address] PCP - [facility] Slzxhwhr27/7/23 Mounika Brooke MD [address] [place] [address] PCP - [facility]11/19/24 Jennifer Short PA [address] [place] [address] Physician AssistantProv[facility]al [facility] Ujlfwwif88/4/24Team MemberRelationshipSpecialtyStart DateEnd Date Mounika Brooke MD [address] [place] [address] PCP - [facility]07/27/23 Mounika Brooke MD [address] [place] [address] PCP - [facility]11/19/24 Jennifer Short PA [address] [place] [address] Physician AssistantProvidence Behavioral [facility] Hospital Rzxhdfmf10/4/24 Jacqueline Vega, RAFAEL [address] [place] [address] Registered NurseChildren'[facility]04/09/25 Janice Kevin LSW [address] [place] [address] Social WorkerProvidence Behavioral Health Hospital Medicine04/10/25Team MemberRelationshipSpecialtyStart DateEnd Date Mounika Brooke MD [address] [place] [address] PCP [facility]07/27/23 Mounika Brooke MD [address] [place] [address] PCP - [facility]11/19/24 Jennifer Short PA [address] [place] [address] Physician Assistantmily Myzzcsqf17/4/24 Jacqueline Vega, RN [address] [place] [address] Registered NurseMercyone Cedar Falls Medical Centerly Medicine04/09/25 Janice Kevin LSW [address] [place] [address] Social WorkerProvidence Behavioral Health Hospital Medicine04/10/25Team MemberRelationshipSpecialtyStart DateEnd Date Mounika Brooke MD [address] [place] [address] PCP - [facility]Prov[facility] Cpkswbkf79/7/23 Mounika Brooke MD [address] [place] [address] PCP - [facility]11/19/24 Jennifer Short PA [address] [place] [address] Physician Assistantmily Jgbwaufp50/4/24 Jacqueline Vega, RAFAEL [address] [place] [address] Registered NurseMercyone Cedar Falls Medical Centerly Medicine04/09/25 Janice Kevin LSW [address] [place] [address] Social WorkerProv[facility] Behavioral Health Hospital Medicine04/10/25Team MemberRelationshipSpecialtyStart DateEnd Date Mounika Brooke MD [address] [place] [address] PCP - [facility]07/27/23 Mounika Brooke MD [address] [place] [address] PCP - [facility]11/19/24 Jennifer Short PA [address] [place] [address] Physician AssistantProv[facility] Yyxdjjcr15/4/24 Jacqueline Vega, RN [address] [place] [address] Registered NurseChildren[facility]04/09/25 Janice Kevin LSW [address] [place] [address] Social WorkerChildren[facility]04/10/25Team MemberRelationshipSpecialtyStart DateEnd Date Mounika Brooke MD [address] [place] [address] PCP - [facility]07/27/23 Mounika Brooke MD [address] [place] [address] PCP - [facility]11/19/24 Jennifer Short PA [address] [place] [address] Physician AssistantChildren[facility]06/24/24 Jacqueline Vega, RN [address] [place] [address] Registered NurseFamily Medicine04/09/25 Janice Kevin LSW [address] [place] [address] Social WorkerFamily Medicine04/10/25Team MemberRelationshipSpecialtyStart DateEnd Date Mounika Brooke MD [address] [place] [address] PCP - Generalmily Hyocdidz44/7/23 Mounika Brooke MD [address] [place] [address] [facility]01/20/2412 Mounika Brooke MD [address] [place] [address] PCP - [facility]11/19/24 Deann Calles LPN [address] [place] [address] Licensed Practical NurseFamily Medicine Jennifer Shotr PA [address] [place] [address] Physician AssistantFamily Gyxtwscf82/4/24 Janice Kevin LSW [address] [place] [address] Social WorkerFamily Medicine Jacqueline Vega, RN [address] [place] [address] Registered NurseFamily Medicine04/09/25 Janice Kevin LSW [address] [place] [address] Social WorkerFamily Medicine04/10/25Team MemberRelationshipSpecialtyStart DateEnd Date Mounika Brooke MD [address] [place] [address] PCP [facility]07/27/23 Mounika Brooke MD [address] [place] [address] [facility]/ Mounika Brooke MD [address] [place] [address] [facility]11/19/24 Jennifer Short PA [address] [place] [address] Physician AssistantProvidence Behavioral Health Hospital Xmnjlrgo87/4/24 Janice Kevin LSW [address] [place] [address] Social WorkerChildren[facility] Jacqueline Vega, RN [address] [place] [address] Registered NurseChildren'[facility]04/09/25 Janice Kevin LSW [address] [place] [address] Social WorkerChildren'[facility]04/10/25 Goals (unrecognized section and content) Goals may [...] section and content) DATE CREATED AUTHOR 10/29/2023 [facility] DATE CREATED AUTHOR AUTHOR'S ORGANIZ ATION 11/30/2023 [facility] DATE CREATED AUTHOR AUTHOR'S ORGANIZ ATION 03/14/2024 [facility] DATE CREATED AUTHOR AUTHOR'S ORGANIZ ATION 06/24/2024 [employer] DATE CREATED AUTHOR AUTHOR'S ORGANIZ ATION 09/05/2024 [facility] DATE CREATED AUTHOR AUTHOR'S ORGANIZ ATION 12/03/2024 [facility] DATE CREATED AUTHOR AUTHOR'S ORGANIZ ATION 12/24/2024 [facility] DATE CREATED AUTHOR AUTHOR'S ORGANIZ ATION 12/25/2024 [facility] DATE CREATED AUTHOR AUTHOR'S ORGANIZ ATION 12/26/2024 [facility] DATE CREATED AUTHOR AUTHOR'S ORGANIZ ATION 01/01/2025 [facility] DATE CREATED AUTHOR AUTHOR'S ORGANIZ ATION 01/17/2025 [facility] DATE CREATED AUTHOR AUTHOR'S ORGANIZ ATION 03/09/2025 [facility] DATE CREATED AUTHOR AUTHOR'S ORGANIZ ATION 03/10/2025 [facility] DATE CREATED AUTHOR AUTHOR'S ORGANIZ ATION 06/07/2025 [facility] DATE CREATED AUTHOR AUTHOR'S ORGANIZ ATION 06/14/2025 [facility] Source Comments (unrecognize d section and content) In the event this informatio n is protected by the [facility] Confidentiality of Alcohol and Drug Abuse Patient Records regulations: The Federal rules restrict any use of the information to criminally investigate or prosecute any alcohol or drug abuse patient.[facility] HospitalIn the event this information is protected by the Federal Confidentiality of Alcohol and Drug Abuse Patient Records regulations: The Federal rules restrict any use of the information to criminally investigate or prosecute any alcohol or drug abuse patient.[facility] HospitalIn the event this information is protected by the Federal Confidentiality of Alcohol and Drug Abuse Patient Records regulations: The Federal rules restrict any use of the information to criminally investigate or prosecute any alcohol or drug abuse patient.[facility] Reason for Visit (unrecogniz ed section and content) ReasonCommentsFollow Up Phone CallPost Discharge F/U - attempt made. No answer. ReasonCommentsRetinal InjectionReasonCommentsMed RefillFallDiabetesReason CommentsShoulder PainER FUReasonCommentsER Follow-upPatient had pneumoniaReason CommentsDiabetesFollow-up06/21/2024 A1C 14%ReasonCommentsFollow-upReasonOnset ImzvFruyxbfcSofvhkai98/17/2024ReasonCommentsDiabetic Eye ExamDiabetic RetinopathyReasonCommentsLeg PainMedicare Annual Wellness Visit Subsequent MxhhrcvoO1T checkReasonOnset DateCommentsCare Uevqkjfyxqvu75/09/2024Reason QryxxkgzKsjvskzgZ3UXlnyfzXdcca DateCommentsCare Epeznyyfqboi85/22/2025Reason Onset DateCommentsMed Bzopxy5401/22/2025ReasonOnset DateCommentsCare Coordination 02/05/2025ReasonCommentsHospital Follow-upLeg PainReasonOnset DateCommentsCare Hxkbnlctoqsh95/04/2025ReasonCommentsMed RefillReasonCommentsDiabetic Eye Exam ReasonCommentsDiabetesFollow-upLAB FOR RECORDS PERTAINING [...] BE BASED ON THE PRIMARY CLINICAL RECORDS. [facility]. provides no warranty or guarantee of the accuracy or completeness of information in this document.
== END 2025-07-23 12:50 | disposition home or self-care (01) ==
PROVIDERS: Visit Provider Physician Assistant
DX: E11.621 Type 2 diabetes mellitus with foot ulcer (principal); L97.422 Non-pressure chronic ulcer of left heel and midfoot with fat layer exposed
CPT/HCPCS: G0463

== ENCOUNTER 2025-08-04 11:04 | Outpatient (OUT) | payer OTHER, SELFPAY ==
--- NOTE | 2025-08-04 11:11 | ECG_ITS ---
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
--- NOTE | 2025-08-04 11:40 | PM.PRESUREVA ---
History of Present Illness History of Present Illness Chief complaint: diabetic foot ulcer, osteromyelitis Narrative: Patient presents for presurgical testing. The patient reports a wound on his left foot which is ongoing for more than a year. The patient states his son helps him with dressing changes at home. He has difficulty with ambulation, and does use a walker. Review of Systems ROS Narrative REVIEW OF SYSTEMS: Negative except as stated in HPI, ten or more systems reviewed. Constitutional: No fever, chills, weakness ENT: No sore throat or epistaxis Cardiovascular: No edema, chest pain, palpitations, or activity intolerance Respiratory: No cough or wheezing Gastrointestinal: No abdominal pain, constipation, diarrhea, or vomiting Genitourinary: No dysuria or hematuria Neurological: No numbness, tingling, weakness, or headache Psychiatric: No mood changes [facility] Medical History (Updated 08/04/25 @ 11:28 by Sasha Angel NP) Asthma ?J45.909 - Unspecified asthma, uncomplicated (ICD-10) Diabetes ?E11.9 - Type 2 diabetes mellitus without complications (ICD-10) Anxiety ?F41.9 - Anxiety disorder, unspecified (ICD-10) Grief ?F43.21 - Adjustment disorder with depressed mood (ICD-10) Neck pain ?M54.2 - Cervicalgia (ICD-10) Depression ?F32.A - Depression, unspecified (ICD-10) Osteomyelitis of left foot ?M86.9 - Osteomyelitis, unspecified (ICD-10) Diabetic ulcer of left foot ?E11.621 - Type 2 diabetes mellitus with foot ulcer (ICD-10) ?L97.529 - Non-pressure chronic ulcer of other part of left foot with unspecified severity (ICD-10) Phlebitis and thrombophlebitis of superficial vessels of left lower extremity ?I80.02 - Phlebitis and thrombophlebitis of superficial vessels of left lower extremity (ICD-10) Umbilical hernia ?K42.9 - Umbilical hernia without obstruction or gangrene (ICD-10) Urine retention ?R33.9 - Retention of urine, unspecified (ICD-10) Hypertension ?I10 - Essential (primary) hypertension (ICD-10) Obesity ?E66.9 - Obesity, unspecified (ICD-10) Bilateral leg edema ?R60.0 - Localized edema (ICD-10) Pain due to varicose veins of both lower extremities ?I83.813 - Varicose veins of bilateral lower extremities with pain (ICD-10) Diabetes 1.5, managed as type 2 ?E13.9 - Other specified diabetes mellitus without complications (ICD-10) Partial nontraumatic amputation of left foot ?Z89.432 - Acquired absence of left foot (ICD-10) Surgical History (Updated 08/04/25 @ 11:39 by Sasha Angel NP) H/O foot surgery ?Z98.890 - Other specified postprocedural states (ICD-10) H/O umbilical hernia repair ?Z98.890 - Other specified postprocedural states (ICD-10) ?Z87.19 - Personal history of other diseases of the digestive system (ICD-10) Status post laser ablation of incompetent vein ?Z98.890 - Other specified postprocedural states (ICD-10) Family History (Updated 08/04/25 @ 10:49 by Sasha Angel NP) Other Emphysema lung Family history of cancer Social History (Updated 08/04/25 @ 11:26 by Sasha Angel NP) Within the past year, how often did you have a drink containing alcohol: never Score interpretation: A score less than 4 is consistent with normal alcohol consumption. Smoking status: Never smoker Non-prescribed substance use: denies use Highest level of school completed/degree received: high school graduate Meds Home Medications and Allergies Home Medications ?Medication ?Instructions ?Recorded ?Confirmed ?Type linagliptin 2.5 mg-metformin ER 1 tab PO DAILY 04/26/24 08/04/25 History 1,000 mg tablet,extended release 24 hr (Jentadueto XR) gabapentin 600 mg tablet 600 mg PO TID 05/14/24 08/04/25 History losartan 100 mg tablet 100 mg PO DAILY 05/14/24 08/04/25 History duloxetine 60 mg capsule,delayed 120 mg PO DAILY 08/04/25 08/04/25 History release insulin aspart U-100 100 unit/mL 1 sliding scale dose subcut TID 08/04/25 08/04/25 History (3 mL) subcutaneous pen (Novolog FlexPen U-100 Insulin aspart) insulin regular hum U-500 conc 500 50 unit subcut QPM 08/04/25 08/04/25 History unit/mL(3 mL) subcut pen (Humulin R U-500 (Conc) Insulin Kwikpen) Allergies Allergy/AdvReac Type Severity Reaction Status Date / Time penicillamine Allergy Intermediate Rash Verified 08/04/25 11:19 Exam Narrative Exam Narrative: Constitutional: Awake, alert, nontoxic, vital signs as charted Head: Normocephalic, atraumatic Neck: Supple, normal appearance, normal range of motion, no meningeal signs, no lymphadenopathy Respiratory: No respiratory distress, breath sounds clear Cardiovascular: Regular rate and rhythm, strong and regular heart tones Musculoskeletal: Ambulates with an antalgic gait using a walker, dressing intact left lower extremity Neuro: No gross neurological deficits Psychiatric: Oriented ?3, flat affect, apathetic Assessment and Plan Assessment and Plan (1) Diabetic ulcer of left foot: (2) Osteomyelitis of left foot: Plan Excision of prominent bone with delayed primary closure and tendo Achilles lengthening of the left foot scheduled with Dr. Rose August 08, 2025
[2025-08-04 12:09] LABS: Anion Gap 11.2; Blood Urea Nitrogen 24.0 mg/dL (7.0-18.0); Calcium 8.4 mg/dL (8.5-10.1); Carbon Dioxide 28.2 mmol/L (21.0-32.0); Chloride 104 mmol/L (98-107); Estimated GFR (African America 58 (>=60 mL/min/1.73m^2); Estimated GFR (Non-African Ame 48 (>=60 mL/min/1.73m^2); Glucose 308 mg/dL (74-106); Potassium 4.4 mmol/L (3.5-5.1); Sodium 139 mmol/L (136-145)
== END 2025-08-04 11:05 | disposition home or self-care (01) ==
LOC: PST 11:06
PROVIDERS: PCP Student in an Organized Health Care Education/Training Program; Visit Provider Podiatrist Foot & Ankle Surgery
DX: Z01.810 Encounter for preprocedural cardiovascular examination (principal); Z01.812 Encounter for preprocedural laboratory examination; Z01.818 Encounter for other preprocedural examination; L97.422 Non-pressure chronic ulcer of left heel and midfoot with fat layer exposed; M86.472 Chronic osteomyelitis with draining sinus, left ankle and foot
CPT/HCPCS: 36415; 80048; 93005; G0463

== ENCOUNTER 2025-08-20 12:00 | Outpatient (OUT) | payer OTHER, SELFPAY ==
--- OUTSIDE RECORDS SUMMARY | 2025-08-20 13:37 | XMS_ITS | Clinical Summary ---
Author Organization [facility] Address [address] [place] [address] Care Team Providers Care Yard Cleaner Name Role Phone Mounika Brooke MD Primary Care Provider [phone] Debora Levi MD Unavailable [phone] Allergies Active AllergyReactionsCriticalityNoted OvqhAgkaevscHzhewunmtglZchi46/13/2015 Medications MedicationSigDispense QuantityRefillsLast FilledStart DateEnd DateStatus insulin [...] DateAcute pulmonary edema10/26/2023cute on chronic congestive heart kylgngj8610/25/2023cute respiratory failure with hypoxia and znizcayzyyq91/06/2024Fluid uxibspgh74/05/2024 Assessment & Plan (10/26/2023 3:21 PM EST): [...] on chronic heart failure with preserved ejection alisgckx02/05/2024 Obesity, Class III, BMI >= 40010/24/2023Systolic congestive [...] (10/26/2023 3:23 PM EST): BP controlled Continue CHIEF SOLUTION ARCHITECT hydralazine Restless leg syndrome Assessment & Plan (10/24/2023 2:21 AM EST): Symptoms uncontrolled - Increase requip - Continue gabapentin Resolved Problems ProblemNoted DateDiagnosed DateResolved DateAcute on chronic respiratory failure with qokyqtqcz28/09/2024 Assessment & Plan (10/24/2023 2:19 AM EST): [...] 11/23/2023State Score (1-10), lower number is lower alix72111/23/2023ata from: https://www.neighborhoodatlas.medicine.[facility].edu/. Last address used for [address]/23/2023Sex and Gender InformationValueDate RecordedSex Assigned at BirthNot on fileLegal YopPdag5310/25/2013 12:04 PM EST Gender IdentityNot on fileSexual OrientationNot on file Last Filed Vital Signs Vital SignReadingTime TakenCommentsBlood Lycryiqw308/7903 11:20 AM EST Pndkz416110/28/2023 11:20 AM FBGCtjemgcnlmw83.9 ??C (98.4 ??F)10/28/2023 11:20 AM ESTRespiratory Zxep813310/28/2023 11:20 AM ESTOxygen Jyixlpzeno58%10/28/2023 11:20 AM ESTInhaled Oxygen Concentration--Tnqpne839.7 kg (275 lb)10/28/2023 8:48 AM QVKAitbim573.3 cm (5' 11 )10/24/2023 1:27 AM ESTBody Mass Index38.35010/24/2023 1:27 AM EST Plan of Treatment Health MaintenanceDue DateLast DoneCommentsAnxiety Hqvslrlnt51/20/1977Depression Bedbrhsgk18/20/1977Hepatitis C Qulmrdigx46/20/1977DTaP,Tdap,Td Vaccine (1 - Tdap)1978CT Lhfrdhohobsi03/20/2004Cologuard (FIT-DNA)01/08/2004Colonoscopy 01/08/2004Colorectal Cancer Sskfowbib94/20/2004Fecal Occult Blood01/08/2004 Prostate Cancer Screening Bvlagxukdl05/20/3312Tkdhlylpzhkvj16/20/2004Shingrix Vaccine (1 of 2)2009Pneumococcal Vaccine: 50+ (2 of 2 - PCV)08/07/2019 08/07/2018, 08/07/2018, 11/24/2015Advance Directive Gyfovtkebm86/01/2025ovid-19 Vaccine ( season)/, 07/27/2021, 12/03/2020, Additional history existsInfluenza Vaccine (#1)/09/2022, 06/17/2022, 07/20/2021, Additional history existsDiabetes Dbfsixzip51, 10/24/2023, 10/24/2023, Additional history existsLipid Zvbmrhbtl75/06/2029 4RSV Vaccine (1 - 1-dose 75+ series)2034 Procedures Procedure NamePriorityDate/TimeAssociated DiagnosisCommentsCOMPREHENSIVE METABOLIC CYMFSYxkymft03/08/2024 5:18 AM EST LIPID PANEL, KKVJQOFSbuzhck57/06/2024 6:27 AM EST from Last 3 Months or Most Recently Relevant to Health Maintenance Results * (ABNORMAL) COMP METABOLIC PANEL (10/27/2023 5:18 AM EST)ComponentValueRef RangeTest MethodAnalysis TimePerformed AtPathologist SignatureProtein, Total 6.36.3 - 8.0 g/dL10/27/2023 6:05 AM ESTFAIRVIEW LABORATORYAlbumin3.3(L)3.9 - 4.9 g/dL10/27/2023 6:05 AM ESTFAIRVIEW LABORATORYCalcium, Total9.18.5 - 10.2 mg/dL10/27/2023 6:05 AM ESTFAIRVIEW LABORATORYBilirubin, Total0.60.2 - 1.3 mg/dL10/27/2023 6:05 AM ESTFAIRVIEW LABORATORYAlkaline Frapisgqgxn1290 - 113 U/L10/27/2023 6:05 AM [facility] QQUDDZZAXQJFE13(L)14 - 40 U/L10/27/2023 6:05 AM [facility] LODICGFXMERVV4092 - 54 U/L10/27/2023 6:05 AM [facility] ACEDQBBINWIjljcvm730(H)74 - 99 mg/dL10/27/2023 6:05 AM ESTFA[facility] LABORATORY Comment: The [place] Diabetes Association (ADA) provides guidance for cutoff [...] Standards of Medical Care in Diabetes 2016, [place] Diabetes Association. Diabetes Care. 2016.39(Suppl 1). BUN40(H)9 - 24 mg/dL10/27/2023 6:05 AM ESTFAIRVIEW LABORATORYCreatinine1.62(H) 0.73 - 1.22 mg/dL10/27/2023 6:05 AM [facility] XWUXIBGPBVRpsdwz611126 - 144 mmol/L10/27/2023 6:05 AM ESTFAIRVIEW LABORATORYPotassium4.13.7 - 5.1 mmol/L 10/27/2023 6:05 AM [facility] JVGYTDDLCASoixanum24245 - 105 mmol/L10/27/2023 6:05 AM [facility] BTAKKWNFNMVW101(H)22 - 30 mmol/L10/27/2023 6:05 AM EST [facility] [...] TimeReceived TimeBloodBLOOD SPECIMEN / Unknown Venipuncture / Ueqafxp5510/27/2023 5:18 AM EST10/27/2023 5:24 AM EST Narrative Authorizing ProviderResult TypeResult StatusIbrahim Bsscottya LABORATORYFinal ResultPerforming OrganizationAddressCity/State/ZIP CodePhone Number [facility] [address] * LIPID PANEL BASIC (10/25/2023 6:27 AM EST)ComponentValueRef RangeTest Method Analysis TimePerformed AtPathologist SignatureCholesterol, Qudag591<200 mg/dL 10/25/2023 9:13 AM ESTFAIRVIEW LABORATORYComment: <200 mg/dL, Desirable 200-239 mg/dL, Borderline high >239 mg/dL, High Gwwdrdmyiimw51<150 mg/dL10/25/2023 9:13 AM ESTFAIRVIEW LABORATORYComment: <150 mg/dL, Normal 150-199 mg/dL, Borderline high 200-499 mg/dL, High >499 mg/dL, Very high HDL Nbsobpnswhm44>39 mg/dL10/25/2023 9:13 AM ESTFAIRVIEW LABORATORYComment: 40-59 mg/dL, Acceptable >59 mg/dL, High: Negative risk factor for coronary heart disease <40 mg/dL, Low: Positive risk factor for coronary heart disease Non HDL Rbdjcibsxgb54<130 mg/dL10/25/2023 9:13 AM ESTFAIRVIEW LABORATORYComment: <130 mg/dL, Optimal 130-159 mg/dL, Near optimal/above optimal 160-189 mg/dL, Borderline high 190-219 mg/dL, High >219 mg/dL, Very high Secondary prevention optimal non HDL Cholesterol levels are recommended to be <100 mg/dL Fasting Iqho11wsc11/06/2024 9:13 AM ESTFAIRVIEW LABORATORYVLDL Uuppadtmohx55<30 mg/dL10/25/2023 9:13 AM ESTFAIRVIEW LABORATORYTC:HDL Ratio1.70<5.10010/25/2023 9:13 AM ESTFAIRVIEW LABORATORYLDL Cholesterol, Zecsqwvxnc48<100 mg/dL10/25/2023 9:13 AM ESTFAIRVIEW LABORATORYComment: <100 mg/dL, Optimal 100-129 mg/dL, Near optimal/above optimal 130-159 mg/dL, Borderline high 160-189 mg/dL, High >189 mg/dL, Very high Secondary prevention optimal LDL Cholesterol levels are recommended to be < 70 mg/dL LDL:HDL Ratio0.54<2.5403 9:13 AM ESTFAIRVIEW LABORATORYComment: Reference: 1. National Cholesterol Education Program ATP III Guideline At-A-Glance Quick Desk Reference: National Heart, Lung, and Blood Waucoma. National Institutes of Health. 2001: NIH Publication No. 01-3305. 2. An International Atherosclerosis Society position paper: global recommendations for the management of dyslipidemia: executive summary, Atherosclerosis. 2014: 232(2):410-413. Specimen (Source)Anatomical Location / LateralityCollection Method / Volume Collection TimeReceived TimeBloodBLOOD SPECIMEN / UnknownVenipuncture / Unknown 10/25/2023 6:27 AM EST10/25/2023 6:40 AM EST Narrative Authorizing ProviderResult TypeResult StatusDanielle Knowles SENIOR PACKAGING ENGINEER.CNPLABORATORY Final ResultPerforming OrganizationAddressCity/State/ZIP CodePhone Number [facility] [address] from Last 3 Months or Most Recently Relevant to Health Maintenance Insurance Care Teams Team MemberRelationshipSpecialtyStart DateEnd Mounika Brooke MD [address] [place] [address] PCP - GeneralFaazly Medicine10/23/23 [place] [address] [facility] [address] [place], [place] [id number] PhysicianNephrology10/31/23
--- OUTSIDE RECORDS SUMMARY | 2025-08-20 13:37 | XMS_ITS | Clinical Summary ---
Author Organization [facility] Address [address] [place] [address] Phone Care Team Providers Care Afternoon Nanny Name Role Phone Mounika Brooke MD Primary Care Provider [phone] Allergies Active AllergyReactionsCriticalityNoted DateCommentsPenicillamineUnknown 6303TjbmqdhpuxmBhydXiluqp34/13/2015 Medications MedicationSigDispense QuantityRefillsLast FilledStart DateEnd DateStatus albuterol [...] DateAcute pulmonary edema10/26/2023cute on chronic congestive heart tbcddrk9010/25/2023cute on chronic heart failure with preserved ejection oztvfmhd24/05/2024Fluid ovwsvmjr18/05/2024 Overview (11/14/2023): Last Assessment & Plan: 10 [...] III, BMI 40-49.9 (morbid obesity)10/24/2023Systolic congestive heart wszrvan5010/24/2023hronic hypoxemic respiratory fcvqzsh0009/27/2023cute respiratory failure with hypoxia and vhsjuceyopp77/13/2023OSA (obstructive sleep apnea)07/03/2023bsence of toe06/13/2023 Overview (11/14/2023): noted on 12/09/2018 XR Foot 3+ Views Right. added per outpatient CDI policy. Fjnbha8106/13/2023hronic cough06/13/2023alance zyeiayqb58/24/2023iabetic 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 2 diabetes mellitus 06/13/2023 Overview (11/14/2023): noted in 03/11/2021 Diabetic Eye Exampage 5. added per outpatient CDI policy. Cramps of lower pdpchwneu47/24/2023iabetic xtlkkxczut02/24/2023astroesophageal reflux zzwlbhc9806/13/2023Morbid xmgygsp3006/13/2023Lymphedema of both lower zwktoivqkar87/24/8331Aiopavahwxzkek67/24/2023Status post transmetatarsal amputation of left foot06/13/2023Stage 3b chronic kidney ajqpiuo5006/13/2023 Overview (11/14/2023): Last Assessment & Plan: See fluidoverload Cr 1.84 BUN 48 Continue taylor catheter This is a chronic catheter Echo with preserved LV AMY on CKD stage III prerenal most likely 2/2 cardiorenal pathology Nephrology following continue flomax Restless leg opmmbkwa50/24/2023 Overview (11/14/2023): Last Assessment & Plan: Symptoms uncontrolled - Increase requip - Continue gabapentin Primary mjqelhekbuoy54/24/2023 Overview (11/14/2023): Last Assessment & Plan: BP controlled Continue CLIENT DEVELOPMENT CONSULTANT hydralazine Primary lotsoozeonqmwl76/24/2023Osteoarthritis of knee06/13/2023Onychomycosis 06/13/2023Type 2 diabetes mellitus with emycwtukluedn79/24/2023Varicose veins of lower ndwsjucug50/24/2023 Immunizations ImmunizationAdministration DatesNext DueFlu vaccine (IIV4), preservative free *Check age/dose*05/22/2023,06/17/2022,07/20/2021Influenza, injectable, xknihmccgdfv37/15/2019,08/07/2018Pneumococcal polysaccharide vaccine, 23-valent, age 2 years and older (PNEUMOVAX 23)08/07/2018,08/07/2018,11/24/2015 Social History Tobacco UseTypesPacks/DayYears UsedDateSmoking Tobacco: Never AssessedSex and Gender InformationValueDate RecordedSex Assigned at BirthNot on fileLegal Sex Male07/15/2022 8:32 PM ESTGender IdentityNot on fileSexual OrientationNot on file Plan of Treatment Health MaintenanceDue DateLast DoneCommentsCT Xftchkqhwwbn1959Colonoscopy 1959Colorectal Cancer Qpaqnwwlt1959Creatinine Level1959 Diabetes: Urine Protein Gurllozqt1959FIT-DNA (Cologuard)1959FIT 1959Lipid Panel1959Medicare Annual Wellness Visit (AWV)1959 Potassium Level1959 0187Avnigpcjcjamx1959MMR Vaccines (1 of 1 - Standard series)01/08/1960Diabetes: Retinopathy Suzdumqow12/20/1969Hepatitis C Screening 1977DTaP/Tdap/Td Vaccines (1 - Tdap)1981PSA Prostate Cancer Xhnxcidne50/20/2009RSV High Risk: (Elderly (60+) or Population) (1 - Risk 50-74 years 1-dose series)2009Zoster Vaccines (1 of 2)2009 Pneumococcal Vaccine (2 of 2 - PCV), 08/07/2018, 11/24/2015 Diabetes: Hemoglobin A1C06/403/12/20237843Vqvnkrzzxzheby62/17/066719/ COVID-19 Vaccine ( - season), 07/27/2021, 12/03/2020, Additional history existsInfluenza Vaccine (#1)510/09/2022, 06/17/2022, 07/20/2021, Additional history existsHIB VaccinesAged OutNo longer eligible [...] Woodward AAccount TypeRelation to PatientDate of BirthPhoneBilling AddressPersonal/DtrnsrBbmf1960 [address] [address] * Guarantor: Oliverio Woodward AAccount TypeRelation to PatientDate of BirthPhoneBilling AddressPersonal/NutmpeCbtf1960 [address] [address] Care Teams Team MemberRelationshipSpecialtyStart DateEnd Mounika Swanson MD [address] [place] [address] PCP - Generalmily Medicine11/02/23
--- OUTSIDE RECORDS SUMMARY | 2025-08-20 13:37 | XMS_ITS ---
Author Organization [facility] Care Team Providers Care Electroplater Name Role Phone Berny Hinds Unavailable Unavailable Esau Mckenzie Unavailable Unavailable Wil Tavarez Unavailable Unavailable Allergies and adverse reactions Code CodeSystem Substance Reaction Severity StartDate Concern Status 7980 RXNORM Penicillin G Eruption (code- 789590408, SNOMED CT) Mild 11/17/2023 active Care Team Name Role Address Phone Organization Dates Itri A Guzman PCP [address] [facility] [place], [address], [place] (Office): : : : [facility] 11/17/2023 - 11/25/2023 Esau Mckenzie [place], [facility]11/17/2023 - 11/25/2023Wil Tavarez[address] [place], [address], [place](Office): : [facility]11/17/2023 - 11/25/2023 Immunizations Immunization Status Vaccine Details Vaccine Code CodeSystem Date Notes TB 2 Step Mantoux Skin Test completed tuberculin skin test; unspecified formulation lotNumber: [id number] expiry: 12/18/2026 Given 0.1 ml Left Forearm intradermally Step 2 of Multi-step with next step required 98 CVX created date: 11/24/2023 consent date: 11/24/2023 administer ed date: 11/24/2023 resident left AMA 4-6-24 TB 2 Step Mantoux Skin Test completed tuberculin skin test; unspecified formulation lotNumber: [id number] expiry: 12/19/2023 Given 0.1 ml Left Forearm Step 1 of Multi-step with next step required 98 CVX created date: 11/20/2023 administer ed date: 11/17/2023 Mental Status Section Date Assessment Total Score Description 11/25/2023 BIMS 15 cognitively int act CAM 0 No delirium ind icated PHQ-9 00 7416XGEE61bktrllzdoxb hwspooFYL2Wx delirium indicatedPHQ-900 Insurance Providers Coverage Status Coverage Type Relationship to Subscriber Member Identifier Subscriber Identifier Group Identifier Payer Identifier and Other information 2023 Code: 1 Code System OID:[id number] 0.1.205359. 3.221.5 Code System Name: Source of Payment Typology (PHDSC) Display: Medicare Translation : Code: EMILE Code System: OID:2.16.84 0.1.235947. 6.255.1336 Code System Name: Insurance Type Code ([id number]) Display Name: Medicare Part A Code: SELF Code System Name: HL7 RoleCode Code System OID:2.16.840.1 .076456.5.111 Display Name: Self [id number] Root: [id number] Payer Name: Medicare Address: [facility]: [place] State: [place] Country: [place] Code: 81 Code System OID:[id number] 0.1.815054. 3.221.5 Code System Name: Source of Payment Typology (PHDSC) Display: Self Pay Translation : Code: 09 Code System: OID:2.16.84 0.1.719804. 6.255.1336 Code System Name: Insurance Type Code ([id number]) Display Name: Self-pay Problems Problem # Description Date of onset Resolved Date Code CodeSystem Concern Status 1 ACUTE DIASTOLIC (CONGESTIVE) HEART FAILURE [address] active 2 CHRONIC KIDNEY DISEASE, STAGE 3 UNSPECIFIED [address] active 3 CHRONIC OBSTRUCTIVE PULMONARY DISEASE WITH (ACUTE) EXACERBATION [address] active 4 DIABETES MELLITUS DUE TO UNDERLYING CONDITION WITH DIABETIC CATARACT [address] active 5 EDEMA, UNSPECIFIED [address] active 6 HEART FAILURE, UNSPECIFIED [address] active 7 [address]KALEMIA [address] active 8 MORBID (SEVERE) OBESITY DUE TO EXCESS CALORIES [address] active 9 MUSCLE WEAKNESS (GENERALIZED) [address] active 10 NEED FOR ASSISTANCE WITH PERSONAL CARE [address] active 11 OTHER RETENTION OF URINE [address] active 12 UNSPECIFIED INJURY OF UNSPECIFIED KIDNEY, SEQUELA [address] active 13 UNSPECIFIED LACK OF COORDINATION [address] active Reason for Referral No Reasons for Referral Entered Social History Social History Observation Description Start Date End Date Code Code System Current Smoking Status Tobacco smoking consumption unknown 526898088 SNOMED CT Sex Assigned At Male 1960 [address]507-0 [facility] Gender Identity Male 17094765674409 [address] Sexual Orientation Vital Signs Code Code System Vitals Name Values and Units Timing Information 2339[facility]0 [facility] Blood Sugar Value=1.0 Units=mg/dL 9279-1 LOINC Respiratory Rate Value=18.0 Units=/m in 11/25/2023 8462-4 LOINC Blood Pressure-Diastolic Value=84 Un its=mmHg 11/25/2023 8480-6 LOINC Blood Pressure-Systolic Ozrmq=123 Un its=mmHg 11/25/2023 8310-5 LOINC Body Temperature Value=98.1 Units= F 11/25/2023 8867-4 LOINC Heart rate Value=84.0 Units=/min 01/2024 41352-5 LOINC O2 % BldC Oximetry Value=94.0 Units= % 11/25/2023 85695-4 LOINC Pain Level Value=0.0 11/25/2023 87136-8 LOINC Weight Nkvqk=554.0 Units=Lbs 09/2023 8302-2 LOINC Height Value=72.0 Units=Inches 11/18/2023
--- OUTSIDE RECORDS SUMMARY | 2025-08-20 13:37 | XMS_ITS | Continuity of Care Document ---
Author Organization [facility] Address [address] [place] [address] Phone [phone] Care Team Providers Care Licensed Psychologist Name Role Phone Nito Brooke DO Care Team Information Metal Checker [phone] Assessments Date Code Description Provider 09/14/2023 N17.9 [...]
== END 2025-08-20 12:01 | disposition home or self-care (01) ==
LOC: WC 13:35
PROVIDERS: PCP Student in an Organized Health Care Education/Training Program; Visit Provider Physician Assistant
DX: E11.621 Type 2 diabetes mellitus with foot ulcer (principal); L97.425 Non-pressure chronic ulcer of left heel and midfoot with muscle involvement without evidence of necrosis
CPT/HCPCS: 11043; 29445; A6213